=== PATIENT | female | born 1950 | race African-American/Black ===

== ENCOUNTER 2018-11-20 10:21 | Observation (INO) | payer MEDICAID, MEDICARE, OTHER ==
[~2018-11-20] VITALS: Ht 152.4 cm; Wt 99.8 kg
[~2018-11-20 10:21] MED LIST: ALBU0.8322 IH; ALBU8.5H2 IH; ALPR.5T PO; AMIT25TA9 PO; ASP325TEC; ASP81TEC PO; ATEN50TA PO; ATENOLOL; ATN50T; BECL8.7A5 IH; CITA10TA70 PO; CITA20TA4 PO; CODE120S3 PO; CPR500T PO; CTLP20T; DEXL60CA5 PO; DIAZ-345 PO; DIAZ5TAB3 PO; DOXY100C2 PO; DXCC100C PO; EST45C VG; FLC100T1 PO; FLUT1DIS26 IH; FNT25TD TD; FNT50TD TD; FURO40TA4 PO; GABA-486 PO; GLYB5TAB6 PO; HCT25T PO; HYDR-2997 PO; HYDR-34 PO; HYDR-707 PO; HYZAAR; INSASP10V SC; INSU100I16 SQ; INSU100V6 SQ; IPRA3AMP11 INH; IPRA3AMP19 IH; IRBE1TAB; IRBE1TAB18 PO; LEVO500T69 PO; LISI1TAB10 PO; LOSA50TA6 PO; LSRT50T PO; MECL-124 PO; METF-380 PO; METO100T2 PO; METO25TA PO; MTF500T PO; NAPR220T76 PO; NF-ESOM40C PO; OMEP-10 PO; OMEP20CA12 PO; OMEP20TA2 PO; ONDAN4ODT PO; ONDN4T PO; OXYC-465 PO; OXYC1TAB28 PO; OXYC1TAB95 PO; POTA10CA43 PO; POTA10TA36 PO; PRCD5U PO; PRD10T PO; PRD1T PO; PRD20T PO; QUIN1TAB3 PO; SCOP1PAT TD; SCR1T1 PO; SENN1TAB76 PO; SIMV20TA3 PO; SMV20T PO; TIOT18CA; TIOT18CA IH; TOPAMAX; TRAZ150T42 PO; ZLP10T PO; ZLP5T PO; breo IH; diabetic med PO
[2018-11-20] MEDS ORDERED: NS IV 1000 ML 1,000 ML IV SCH (11:08)
[2018-11-20] MEDS ORDERED: KETOROLAC 30 MG/ML VIAL IVP ONE (11:15)
[2018-11-20] MEDS ORDERED: ONDANSETRON 4 MG/2 ML (SDV) Z0FRAN IVP ONE ×2 (11:15→13:45)
[2018-11-20 11:16] LABS: BILIRUBIN,URINE NEGATIVE (NEGATIVE); CLARITY,URINE CLEAR; COLOR,URINE YELLOW; GLUCOSE, URINE (UA) 3+ (NEGATIVE); KETONES,URINE NEGATIVE (NEGATIVE); LEUKOCYTE ESTERASE ,URINE 3+ (NEGATIVE); NITRITE,URINE NEGATIVE (NEGATIVE); PH,URINE 6 (5-9); PROTEIN,URINE 1+ (NEGATIVE); UROBILINOGEN,URINE NORMAL (NORMAL)
--- NOTE | 2018-11-20 11:17 | ED Abdominal Pain ---
General Stated Complaint: BACK PAIN,KIDNEY STONE SYMPTOMS Source of Information: Patient Exam Limitations: No Limitations History of Present Illness Date Seen by Provider: Nov 20, 2018 Time Seen by Provider: 10:58 Initial Comments Patient presents to ER by private conveyance with chief complaint of painful urination without hematuria and left flank pain radiating around her back and down into her a small of her back. In the last 2 days it started to radiate around her right side as well. She has never had kidney stones before but she suspects this might be what happening. She's had no fevers or chills. She says her daughter has a lot of kidney stones. The pain is intermittent waxing and waning and right now is a 9 out of 10. She's been using Motrin 2 tablets without relief with her last dose being last night. No history of kidney dysfunction but she does have diabetes. She has COPD. She denies any anterior abdominal pain. Allergies and Home Medications Allergies Coded Allergies: Sulfa (Sulfonamide Antibiotics) (Verified Allergy, Unknown, 11/26/06) lisinopril (Verified Allergy, Unknown, 07/26/14) metformin (Verified Allergy, Unknown, 07/26/14) Home Medications Albuterol 8.5 Gm Hfa.aer.ad, 2 PUFF IH Q4H PRN for SHORTNESS OF BREATH, ( Reported) NEEDED FOR SHORTNESS OF BREATH Albuterol Sulfate/Ipratropium 3 Ml Solution, 3 ML IH Q4H PRN for SHORTNESS OF BREATH, (Reported) NEEDED FOR SHORTNESS OF BREATH Amitriptyline Hcl 25 Mg Tablet, 25 MG PO HS, (Reported) Aspirin 81 Mg Tabec, 81 MG PO DAILY, (Reported) Citalopram Hydrobromide 20 Mg Tab, 10 MG PO BID, (Reported) TAKES 1/2 (20MG) TABLET Estrogens Conjugated 45 Gm Cr, 1.5 GM VG 3 TIMES WEEKLY PRN, (Reported) NEEDED FOR DRYNESS Fentanyl 1 Ea Patch, 25 MCG TD Q72H, (Reported) Gabapentin 100 Mg Capsule, 100 MG PO TID, (Reported) Insulin Glargine,Hum.rec.anlog 100 Unit/1 Ml Vial, 15 UNITS SQ HS, (Reported) Metoprolol Tartrate 100 Mg Tablet, 100 MG PO BID, (Reported) WITH MEALS Oxycodone Hcl/Acetaminophen 1 Each Tablet, 1 TAB PO BID PRN for PAIN NEEDED FOR PAIN 10-325MG TABLET Prescribed by: SHERON GO on 11/28/13 1201 [breo] , 1 PUFF IH DAILY, (Reported) [diabetic med] , 1 TAB PO DAILY, (Reported) Patient Home Medication List Home Medication List Reviewed: Yes Review of Systems Review of Systems Constitutional: No chills, No fever EENTM: No Eye Pain, No Ear Pain Respiratory: Denies Cough, Denies Shortness of Air Cardiovascular: Denies Chest Pain Gastrointestinal: See HPI; Denies Abdomen Distended, Denies Constipated, Denies Diarrhea; Nausea; Denies Vomiting Genitourinary: Burning; Denies Discharge, Denies Drainage Musculoskeletal: No back pain, No joint pain Skin: No pruritus, No rash Psychiatric/Neurological: Denies Headache, Denies Numbness Past Qpflmnj-Yvrbyd-Sdedio Hx Patient Social History Alcohol Use: Denies Use Recreational Drug Use: No Smoking Status: Never a Smoker Recent Foreign Travel: No Contact w/Someone Who Travel: No Immunizations Up To Date Tetanus Booster (TDap): Less than 5yrs PED Vaccines UTD: No Date of Pneumonia Vaccine: Aug 25, 2013 Date of Influenza Vaccine: May 07, 2013 Past Medical History Eye Surgery, Gallbladder, Hysterectomy, Orthopedic Pneumonia, COPD Hypertension Neuropathy Reproductive Disorders: Yes (hysterectomy) [employer]LY[employer] History: Hysterectomy Sexually Transmitted Disease: No HIV/AIDS: No Renal Failure Ulcer Arthritis, Back Injury, Chronic Back Pain Diabetes, Non-Insulin dep Cataract Loss of Vision: Left Eating Disorder, Sleep Difficulties, Anxiety, Depression Adverse Reaction/Blood Tranf: No Family Medical History Alcoholism 09 SISTER 09 SISTER Cancer 03 MOTHER Cataract 09 SISTER Family history: Cardiovascular disease 09 BROTHER (HEART ATTACK) Family history: Diabetes mellitus 09 SISTER Family history: Glaucoma 09 SISTER 09 SISTER Family history: Hypertension 09 BROTHER 09 BROTHER 09 BROTHER Family history: Osteoporosis 09 SISTER 09 SISTER Kidney disease 09 SISTER Seizure disorder Stroke 09 BROTHER No Family History of: Abdominal aortic aneurysm Cancer of colon Chest pain Congenital heart disease Congestive heart failure Cystic fibrosis Dementia Dysphagia Family history: Allergy Family history: Alzheimer's disease Family history: Arthritis Family history: Breast disease Family history: Coronary thrombosis Family history: Gastrointestinal disease Headache Hearing loss Heart disease Hereditary disease History of - anemia History of - disorder History of - respiratory disease History of drug abuse Human immunodeficiency virus (HIV) seropositivity Hypercholesterolemia Infertile Malignant neoplasm of lung Myocardial infarction Parkinson's disease Prostate cancer Psychotic disorder Tuberculosis Visual impairment Heart Disease, Cancer, CVA, Diabetes Physical Exam Vital Signs Vital Signs - First Documented 11/20/18 10:52 Temp 96.2 Pulse 79 Resp 15 B/P (MAP) 146/96 (113) Pulse Ox 92 O2 Delivery Room Air Capillary Refill : Height/Weight/BMI Height: 5'2.00" Weight: 211lbs. 8.0oz. 95.406534lk; BMI Method:Stated General Appearance: WD/WN, mild distress HEENT: PERRL/EOMI, normal ENT inspection, pharynx normal Neck: full range of motion, supple, normal inspection Respiratory: lungs clear, normal breath sounds, no respiratory distress, no accessory muscle use Cardiovascular: normal peripheral pulses, regular rate, rhythm, no edema Peripheral Pulses: 2+ Radial Pulses (R), 2+ Radial Pulses (L) Gastrointestinal: normal bowel sounds, non tender, soft Extremities: normal range of motion, normal capillary refill Back: normal inspection, CVA tenderness (R), CVA tenderness (L) Neurologic/Psychiatric: alert, normal mood/affect, oriented x 3 Skin: normal color, warm/dry Progress/Results/Core Measures Results/Orders Lab Results Laboratory Tests Test 11/20/18 10:54 11/20/18 11:36 Range/Units Urine Color YELLOW Urine Clarity CLEAR Urine pH 6 5-9 Urine Specific Minter 1.020 1.016-1.022 Urine Protein 1+ H NEGATIVE Urine Glucose (UA) 3+ H NEGATIVE Urine Ketones NEGATIVE NEGATIVE Urine Nitrite NEGATIVE NEGATIVE Urine Bilirubin NEGATIVE NEGATIVE Urine Urobilinogen NORMAL NORMAL MG/DL Urine Leukocyte Esterase 3+ H NEGATIVE Urine RBC (Auto) 1+ H NEGATIVE Urine RBC NONE /HPF Urine WBC 10-25 H /HPF Urine Squamous Epithelial Cells 10-25 H /HPF Urine Renal Epithelial Cells 2-5 /HPF Urine Crystals NONE /LPF Urine Bacteria MODERATE H /HPF Urine Casts NONE /LPF Urine Mucus SMALL H /LPF Urine Culture Indicated YES White Blood Count 8.9 4.3-11.0 10^3/uL Red Blood Count 4.78 4.35-5.85 10^6/uL Hemoglobin 15.8 11.5-16.0 G/DL Hematocrit 47 35-52 % Mean Corpuscular Volume 98 80-99 FL Mean Corpuscular Hemoglobin 33 25-34 PG Mean Corpuscular Hemoglobin Concent 34 32-36 G/DL Red Cell Distribution Width 13.9 10.0-14.5 % Platelet Count 195 130-400 10^3/uL Mean Platelet Volume 9.8 7.4-10.4 FL Neutrophils (%) (Auto) 62 42-75 % Lymphocytes (%) (Auto) 27 12-44 % Monocytes (%) (Auto) 8 0-12 % Eosinophils (%) (Auto) 3 0-10 % Basophils (%) (Auto) 1 0-10 % Neutrophils # (Auto) 5.5 1.8-7.8 X 10^3 Lymphocytes # (Auto) 2.4 1.0-4.0 X 10^3 Monocytes # (Auto) 0.7 0.0-1.0 X 10^3 Eosinophils # (Auto) 0.3 0.0-0.3 10^3/uL Basophils # (Auto) 0.1 0.0-0.1 10^3/uL Sodium Level 136 135-145 MMOL/L Potassium Level 5.0 3.6-5.0 MMOL/L Chloride Level 98 98-107 MMOL/L Carbon Dioxide Level 21 21-32 MMOL/L Anion Gap 17 H 5-14 MMOL/L Blood Urea Nitrogen 18 7-18 MG/DL Creatinine 1.24 0.60-1.30 MG/DL Estimat Glomerular Filtration Rate 52 BUN/Creatinine Ratio 15 Glucose Level 312 H 70-105 MG/DL Calcium Level 10.0 8.5-10.1 MG/DL Corrected Calcium 9.8 8.5-10.1 MG/DL Magnesium Level 2.0 1.8-2.4 MG/DL Total Bilirubin 0.4 0.1-1.0 MG/DL Aspartate Amino Transf (AST/SGOT) 22 5-34 U/L Alanine Aminotransferase (ALT/SGPT) 26 0-55 U/L Alkaline Phosphatase 80 40-136 U/L Total Protein 8.1 6.4-8.2 GM/DL Albumin 4.3 3.2-4.5 GM/DL My Orders Orders - KAITLYN HELMS Ua Culture If Indicated (11/20/18 10:29) Cbc With Automated Diff (11/20/18 11:08) Comprehensive Metabolic Panel (11/20/18 11:08) Magnesium (11/20/18 11:08) Ct Abd/Pelvis Wo(Kidney Stone) (11/20/18 11:08) Saline Lock/Iv-Start (11/20/18 11:08) Ns Iv 1000 Ml (Sodium Chloride 0.9%) (11/20/18 11:08) Ondansetron Injection (Zofran Injectio (11/20/18 11:15) Ketorolac Injection (Toradol Injection) (11/20/18 11:15) Urine Culture (11/20/18 10:54) Ceftriaxone For Iv Use (Rocephin For I (11/20/18 12:15) Fentanyl Injection (Sublimaze Injection (11/20/18 12:15) Ondansetron Injection (Zofran Injectio (11/20/18 13:45) Medications Given in ED Current Medications Medications Dose Ordered Sig/Jasmina Route Start Time Stop Time Status Last Admin Dose Admin Ceftriaxone Sodium 1000 mg/ Sterile Water 10 ml @ 200 mls/hr ONCE ONCE IV 11/20/18 12:15 11/20/18 12:17 DC 11/20/18 12:31 200 MLS/HR Fentanyl Citrate 50 mcg ONCE ONCE IVP 11/20/18 12:15 11/20/18 12:16 DC 11/20/18 12:31 50 MCG Ketorolac Tromethamine 30 mg ONCE ONCE IVP 11/20/18 11:15 11/20/18 11:16 DC 11/20/18 11:31 30 MG Ondansetron HCl 4 mg ONCE ONCE IVP 11/20/18 11:15 11/20/18 11:16 DC 11/20/18 11:31 4 MG Vital Signs/I&O 11/20/18 10:52 Temp 96.2 Pulse 79 Resp 15 B/P (MAP) 146/96 (113) Pulse Ox 92 O2 Delivery Room Air Progress Progress Note #1: Time: 11:14 Progress Note Pyelonephritis versus much less likely kidney stone. We will going obtain a CT without contrast if the rest of her lab works unrevealing. Plan to give her a liter fluids; check some urine and blood. Progress Note #2: Time: 12:50 Progress Note The patient has a bladder infection but no evidence of obstructive renal calculi. She does very possibly have the beginnings of pyelonephritis. Her labs and vital signs are aseptic. We have offered her to go home on antibiotics, antinausea and anti-pain meds versus an observation stay. Given her age, diabetes and how much pain medicine as take to control her symptoms he would be reasonable to hold onto her for her pain and nausea control. Patient is followed by a Dr. Yates at [facility]. She has not seen Dr. Lyle in over 5 years. Diagnostic Imaging Diagonstic Imaging: CT (noncontrast) Plain Films/CT/US/NM/MRI: abdomen, pelvis Comments NAME: ISIAH BENÍTEZ REC#: [id number] PT STATUS: REG ER : 1950 PHYSICIAN: KAITLYN HELMS MD ADMIT DATE: 11/20/18/ER Draft Date of Exam:11/20/18 CT ABD/PELVIS WO(KIDNEY STONE) PROCEDURE: CT urinary tract, rule out kidney stone. TECHNIQUE: Multiple contiguous axial images were obtained through the abdomen and pelvis without the use of intravenous contrast. Auto Exposure Controls were utilized during the CT exam to meet ALARA standards for radiation dose reduction. INDICATION: Bilateral flank pain. CORRELATION STUDY: 03/23/2012. FINDINGS: LOWER THORAX: Clear. LIVER: Enlarged with changes reflecting hepatic steatosis. GALLBLADDER: Cholecystectomy. No bile duct dilatation. SPLEEN: Calcified granulomas. PANCREAS: Unremarkable. ADRENAL GLANDS: Unremarkable. KIDNEYS: 12 mm rounded low-density focus inferior pole of the right kidney. It does appear to be somewhat changed from prior study. Right kidney collecting system is otherwise unremarkable. Irregular-shaped calcification inferior pole of the left kidney maximum dimension 17 x 15 mm is present. The left kidney and collecting system otherwise unremarkable. No hydronephrosis. ABDOMINAL AORTA: Trace abdominal wall calcification, nonaneurysmal. GASTROINTESTINAL TRACT: Stomach decompressed. Small bowel unremarkable. Mild severity fecal retention within the colon. Normal appendix in the right lower quadrant. URINARY BLADDER: Relatively decompressed but appearing unremarkable. REPRODUCTIVE: Post hysterectomy changes. There is a rounded lucency in the low midline pelvis with rounded densities dependently. This may be reflective of a support device. OSSEOUS STRUCTURES: No acute abnormality. OTHER: Likely surgical changes of the abdominal wall. IMPRESSION: 1. Nonobstructing stone inferior pole of left kidney. No evidence for obstructive uropathy. Negative for acute abnormality about the abdomen and/or pelvis. 2. Post cholecystectomy and hysterectomy changes. Dictated on workstation # [id number] Dict: 11/20/18 1210 Trans: 11/20/18 1241 [id number] Interpreted by: SAAD TOLBERT DO Electronically signed by: Reviewed: Reviewed by Me Departure Communication (Admissions) Time/Spoke to Admitting Phy: 13:25 Discussed case lab imaging findings with Dr. Gregory and she agrees to observe the patient for nausea and Pain control. Impression Primary Impression: UTI (urinary tract infection) Qualified Codes: N30.00 - Acute cystitis without hematuria Disposition: ADMITTED INPATIENT Condition: Stable Admissions Decision to Admit Reason: Admit from ER (General) Decision to Admit/Date: Nov 20, 2018 Time/Decision to Admit Time: 13:07 Departure-Patient Inst. Referrals: LAURIE LYLE MD (PCP/Family) Primary Care Physician KAITLYN HELMS Nov 20, 2018 11:17
--- OUTSIDE RECORDS SUMMARY | 2018-11-20 11:18 | XMS REPORT | Clinical Summary ---
Author Author [facility] Organization [facility] Address Unknown Phone Unavailable Care Team Providers Care Schedule Announcer Name Role Phone Angela Galloway MD Unavailable Yassine Cano MD Unavailable Chantel Don DO Unavailable Jeremy Franco MD Unavailable Unavailable Angela Galloway MD PCP Joanna Causey RD Unavailable Unavailable Leeanna Cheema RN Unavailable Unavailable Patrick Astorga MD Unavailable April Weaver DO Unavailable Genevieve Chavira MD Unavailable Gege Joseph MD Unavailable Jermaine Penaloza MD Unavailable Bijan Ambrocio [facility] Unavailable Smiley Barahona RN Unavailable Unavailable Source Comments Some departments are not documenting in the electronic medical record. If you do not see the information that you expected, contact Release of Information in the Health Information Management department at [phone] for further assistance in locating additional records.[facility] Allergies Comments Active Allergy Reactions Severity Noted Date Caused stress incontinence d/t intense coughing. Amlodipine COUGH 07/21/2012 Lisinopril ANGIOEDEMA 05/09/2012 Metformin EDEMA 05/19/2012 Medications End Date Status Medication Sig Dispensed Refills Start Date Active aspirin EC 81 mg tablet Take 81 mg by 0 mouth daily. Active epinephrine(+) (EPIPEN) 1 Inject 0.3 mL 2 Each 12 mg/mL injection pen to area(s) as 2 directed as Needed. For airway swelling. Active naproxen sodium(+) Take 1 Tab by 0 (ALEVE) 220 mg tablet mouth as Needed. Active estrogens, conjugated(+) Apply as 1 Container 0 (PREMARIN) 0.625 mg/g directed 2 vaginal creamIndications: Menopause ovarian failure Active potassium chloride(+) Take 2 Caps 90 Cap 3 (MICRO-K) 10 mEq capsule by mouth 3 daily. Active hydrochlorothiazide Take 1 Tab by 90 Cap 3 (HYDRODIURIL) 25 mg mouth daily. [address](+) TAKE 1 90 Cap 0 (PRILOSEC) 20 mg capsule CAPSULE BY 3 MOUTH DAILY Active amitriptyline (ELAVIL) 25 TAKE 1 TABLET 90 Tab 0 mg tablet BY MOUTH 3 EVERY NIGHT AT BEDTIME Active insulin glargine (LANTUS) Inject 15 2 Vial 2 100 unit/mL injection Units into 3 area(s) as directed at bedtime daily. Active salmeterol (SEREVENT) 50 Inhale 1 Puff 1 Inhaler 12 mcg/dose inhalation disk by mouth 3 twice daily. Active albuterol 0.083% Inhale 3 mL 75 mL 5 (PROVENTIL; VENTOLIN) 2.5 solution as 3 mg /3 mL (0.083 %) directed nebulizer solution every 4 hours as needed for Wheezing. Active beclomethasone(+) (QVAR) Inhale 2 3 Inhaler 3 80 mcg/actuation inhaler Puffs by 3 mouth twice daily. Active metoprolol (LOPRESSOR) Take 1 Tab by 180 Tab 3 100 mg tablet mouth twice 3 daily. Active Insulin Wilber 100 Each 11 (Disposable) (ULTICARE) 3 29 x 1/2 " Ndle Active famotidine (PEPCID) 20 mg Take 1 Tab by 60 Tab 0 tablet mouth twice 3 daily. Active citalopram (CELEXA) 20 mg Take 2 Tabs 180 Tab 1 tablet by mouth 3 daily. Active gabapentin (NEURONTIN) Take 1 Cap by 270 Cap 3 100 mg capsule mouth three 3 times daily. Active HYDROcodone/acetaminophen Take 1 Tab by 90 Tab 0 (NORCO; VICODIN) 5-325 mg mouth every 8 3 tablet hours as needed for Pain. Active Problems Problem Noted Date Numbness and tingling of both legs 04/08/2013 Last Assessment & Plan: Start Neurontin 150 mg tid. Pseudophakia 02/20/2013 Last Assessment & Plan: OK for new glasses Rx as above. 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 Retinal detachment precautions discussed. Patient is to contact us immediately if increased floaters, flashing lights, or dark curtains/veils are noted. Monocular precautions discussed. Depression 01/04/2013 Last Assessment & Plan: Improved with increase in celexa. Continue to monitor. Diabetes mellitus 01/04/2013 Overview: Follow up with HbA1c and microalbuminuria. L ast Assessment & Plan: No retinopathy, continue strict blood glucose control. Ankle fracture, left 01/03/2013 Last Assessment & Plan: Plain film today - referral to orthopedic surgery Lung mass 01/03/2013 Overview: Resolved on subsequent CT LIMA (dyspnea on exertion) 01/03/2013 Last Assessment & Plan: Etiology remains unclear. Difficulty keeping advair on hand due to insurance reasons. Has required samples from pulm clinic. Will write for fluticasone and salmeterol individually. Continue to follow with pulm. May consider repeat cardiac work up of respiratory issues persist. Chest pain sounds more pleuritic/anxiety related as it is relieved with advair. HTN (hypertension) 01/03/2013 Overview: discontinue HCTZ, Start Norvasc. Last Assessment & Plan: Continues to be hypertensive despite HCTZ and metoprolol. Intolerant of LUCIANO/ARB due to angioedema as well as CCB due to cough. Will increase metoprolol to 75mg BID Angioedema 05/19/2012 Overview: Patient with recurrent facial angioedema, with possible involvement of airway, requiring hospitalization without urticaria. Based on history, this sounds more bradykinin mediated and not mast cell mediated and could very well have been caused by one or more medications. - would strongly encourage discontinuing Cozaar and not restart an ACEi or an ARB as these are associated with angioedema, but recommend a calcium channel rian instead to control HTN. We will refer to internal medicine here at to further evaluate this and decide on her medications. - will send baseline labs including C4, C3, ESR, CRP, CBC, CMP, C1 antigen and function - ask that patient keep a journal of events should this happen again. It should include what she ingested, foods, medications, etc., how long after she ingested that it started, how long it lasted and if possible pictures. - will provide an EpiPen for severe reactions involving the airway Hemoptysis 05/19/2012 Overview: History of bloody sputum for the last 2 weeks or so. By report, has had a CT scan of chest that showed pneumonia only and was treated. - will obtain a chest xray today to follow-up on pneumonia, with concern for malignancy because of history of smoking. - recommend seeing a Assistant District Attorney for further evaluation as she has been evaluated by her primary care, will refer today to pulm. Immunizations Name Dates Previously Given Next Due FLU VACCINE >3YO 06/08/2012 Pneumococcal Vaccine 11/10/2012 (23-[place] Adult) Family History Medical History Relation Name Comments Cancer Brother Cancer Father Diabetes Father Heart Attack Father Stroke Father Asthma Mother Cancer Mother Amblyopia Neg Hx Autoimmune Disease Neg Hx Blindness Neg Hx Blood Clots Neg Hx COPD Neg Hx Cataract Neg Hx Coronary Artery Disease Neg Hx Cystic Fibrosis Neg Hx DVT Neg Hx Glaucoma Neg Hx Hypertension Neg Hx Macular Degen Neg Hx Neurologic Disorder Neg Hx Pulmonary Embolism Neg Hx Pulmonary Fibrosis Neg Hx Pulmonary HTN Neg Hx Retinal Detachment Neg Hx Strabismus Neg Hx Thyroid Disease Neg Hx Relation Name Status Comments Brother Father Mother Social History Date Tobacco Use Types Packs/Day Years Used Quit: 05/23/2011 Former Smoker Cigarettes 22 Smokeless Tobacco: Never Used Tobacco Cessation: Counseling Given: No Comments: 1 pack lasted 3 days Alcohol Use Drinks/Week oz/Week Comments No 1-2 drinks/year Sex Assigned at Date Recorded Not on file Industry Job Start Date Occupation Not on file Not on file Not on file Travel End Travel History Travel Start No recent travel history available. Last Filed Vital Signs Time Taken Vital Sign Reading 04/06/2013 10:29 AM CDT Blood Pressure 134/79 04/06/2013 10:29 AM CDT Pulse 70 04/06/2013 10:20 AM CDT Temperature 36.9 C (98.4 F) 04/06/2013 10:20 AM CDT Respiratory Rate 20 03/28/2013 3:35 PM CDT Oxygen Saturation 99% - Inhaled Oxygen - Concentration 04/06/2013 10:20 AM CDT Weight 101.1 kg (222 lb 12.8 oz) 04/06/2013 10:20 AM CDT Height 154.9 cm (5' 1") 04/06/2013 10:20 AM CDT Body Mass Index 42.1 Plan of Treatment Health Maintenance Due Date Last Done Comments HEPATITIS C SCREENING 1950 PHYSICAL (COMPREHENSIVE) 1959 EXAM DTAP/TDAP VACCINES (1 - 1970 Tdap) BREAST CANCER SCREENING 1992 COLORECTAL CANCER 2002 SCREENING SHINGLES RECOMBINANT 2002 VACCINE (1 of 2) OSTEOPOROSIS 2017 SCREENING/MONITORING PNEUMONIA (PCV13/PPSV23) 2017 11/10/2012 VACCINES (1 of 2 - PCV13) INFLUENZA VACCINE 03/23/2018 06/08/2012 Results Not on filefrom Last 3 Months Advance Directives Patient has advance care planning documents on file. For more information, please contact: [facility] [address] [place] [address]
--- OUTSIDE RECORDS SUMMARY | 2018-11-20 11:19 | XMS REPORT | Encounter Summary ---
Author Author [facility] Organization [facility] Address Unknown Phone Unavailable Care Team Providers Care Lecturer Of Portuguese Name Role Phone Ebony Sharp MD PCP Reason for Visit * Reason Comments Other Encounter Details Date Type Department Care Team Description 11/15/2018 Refill [facility] Primary Care Ebony Sharp MD Other - [facility] [place] [address] [facility] [address] [facility] [address] [place] [address] [place] [address] [phone] Social History Tobacco Use Types Packs/Day Years Used Date Former Smoker Cigarettes 0.33 20 Quit: 09/14/2009 Smokeless Tobacco: Never Used Comments: quit 7 years ago Alcohol Use Drinks/Week oz/Week Comments Yes seldom, two to three times a year Sex Assigned at Date Recorded Not on file as of this encounter Plan of Treatment Date Type Specialty Care Team Description 11/29/2018 Education General Surgery as of this encounter Visit Diagnoses Not on filein this encounter
--- OUTSIDE RECORDS SUMMARY | 2018-11-20 11:19 | XMS REPORT | Clinical Summary ---
Author Author [facility] Organization [facility] Address Unknown Phone Unavailable Care Team Providers Care Template Clerk Name Role Phone Ebony Sharp MD PCP Allergies Active Allergy Reactions Severity Noted Date Comments Latex, Natural Rubber 05/23/2018 Lisinopril Anaphylaxis High 01/06/2016 Metformin Anaphylaxis High 12/31/2015 Sulfa (Sulfonamide Hives 09/05/2015 Antibiotics) Current Medications Prescription Sig. Disp. Refills Start End Date Status Date OXYGEN THERAPY 2 L/min as needed. Active ipratropium-albuterol Inhale 3 mL 4 (four) 360 mL 11 02/14/20 Active (DUO-NEB) 0.5-3 mg/3 mL times a day. 16 nebulizer docusate sodium (COLACE) Take 1 capsule (100 mg 60 capsule 0 04/12/20 Active 100 MG capsule total) by mouth 2 (two) 17 times a day as needed for constipation (first line therapy with polyethlene glycol). albuterol (VENTOLIN HFA) INHALE 1 PUFF EVERY 4 18 g 2 08/26/19 Active 90 mcg/actuation HFA HOURS NEEDED FOR 18 inhaler WHEEZING simvastatin (ZOCOR) 20 MG Take 1 tablet (20 mg 90 tablet 1 08/26/19 Active tablet total) by mouth nightly. 18 insulin syringe (BD Inject under the skin 100 each 0 08/26/19 Active ULTRA-FINE) 0.3 mL 31 daily. use as directed 18 gauge x 5/16 amLODIPine (NORVASC) 2.5 Take 2 tablets (5 mg 180 tablet 1 01/07/20 Active MG tablet total) by mouth daily. 18 Take one daily. insulin syringe 0.3 mL 31 USE DIRECTED 100 each 1 06/21/20 Active gauge x 01/05 18 cyclobenzaprine TAKE 1 TABLET BY MOUTH AT 15 tablet 0 07/19/20 Active (FLEXERIL) 10 MG tablet BEDTIME 18 simvastatin (ZOCOR) 20 MG TAKE 1 TABLET(20 MG) BY 30 tablet 0 Active tablet MOUTH EVERY NIGHT 18 cyclobenzaprine TAKE 1 TABLET(10 MG) BY 14 tablet 0 09/02/19 Active (FLEXERIL) 10 MG tablet MOUTH DAILY 19 spironolactone Take 1 tablet (100 mg 180 tablet 1 09/12/19 03/11/20 Active (ALDACTONE) 100 MG total) by mouth 2 (two) 19 19 tabletIndications: Hair times a day. (Please take loss, Acne vulgaris 1 daily for the first week) oxyCODONE-acetaminophen Take 1-2 tablets by mouth 24 tablet 0 Active (PERCOCET) 5-325 mg per every 8 (eight) hours as 19 tablet needed for pain. Max Daily Dose: 6 tablets LANTUS U-100 INSULIN 100 ADMINISTER 15 UNITS UNDER 10 mL 0 10/19/19 Active unit/mL injection THE SKIN EVERY NIGHT 19 gabapentin (NEURONTIN) TAKE 2 CAPSULES(600 MG) 540 capsule 1 10/19/19 Active 300 MG capsule BY MOUTH THREE TIMES 19 DAILY citalopram (CELEXA) 20 mg TAKE 1 TABLET(20 MG) BY 90 tablet 1 Active tablet MOUTH DAILY 19 BREO ELLIPTA 200-25 INHALE 1 PUFF BY MOUTH 60 each 2 10/19/19 Active mcg/dose INHALER DAILY 19 amitriptyline (ELAVIL) 25 TAKE 1 TABLET(25 MG) BY 90 tablet 1 Active MG tablet MOUTH EVERY NIGHT 19 metoprolol tartrate TAKE 1 TABLET(100 MG) BY 180 tablet 1 10/20/19 Active (LOPRESSOR) 100 MG tablet MOUTH TWICE DAILY 19 LANTUS U-100 INSULIN 100 ADMINISTER 15 UNITS UNDER 10 mL 0 10/22/19 Active unit/mL injection THE SKIN EVERY NIGHT 19 simvastatin (ZOCOR) 20 MG TAKE 1 TABLET BY MOUTH 90 tablet 1 10/26/19 Active tablet EVERY NIGHT AT BEDTIME 19 simvastatin (ZOCOR) 20 MG TAKE 1 TABLET BY MOUTH 14 tablet 0 09/02/19 10/24/19 Discontin tablet EVERY NIGHT AT BEDTIME 19 19 ued Active Problems Patient Care Coordination Note Ms. Isiah Benítez is a 65 y.o. female with hx of HTN, IDDM, COPD presents with shortness of breath, failed OP therapy. Likely COPD exacerbation. Started on Levaquin, steroids, breathing treatments and supplemental oxygen, with improvement. Problem Noted Date Influenza A 08/29/2017 Last Assessment & Plan: Continue tamfilu Closed left ankle fracture 04/09/2017 Last Assessment & Plan: Postoperative Day # 3 s/p Left ankle revision arthrodesis -Management by primary service Renal calculus 02/05/2017 Last Assessment & Plan: - 9x7 L renal calculus - pt aware - no hydronephrosis COPD exacerbation (HCC) 02/04/2017 Last Assessment & Plan: Change steroids to po duonebs tamiflu Supportive care. Acute bleeding 08/08/2016 Last Assessment & Plan: Bleeding after left ankle surgery yesterday Splint was reapplied in ED yesterday Stable, dressings D/I Hgb 11.6, VSS Ortho consulted, per note yesterday anticipated discharge today Draining postoperative wound 08/08/2016 Bleeding 08/07/2016 Post-op pain 08/07/2016 Last Assessment & Plan: Patient with ankle fusion in July and follows closely with ortho -on MS contin 15 BID and oxycodone 10mg PRN for chronic pain Morbid obesity due to excess calories ([facility]) 07/10/2016 Last Assessment & Plan: Counseled regarding weight loss SASHA on CPAP 06/30/2016 Last Assessment & Plan: Stable, continue CPAP at HS Type 2 diabetes mellitus with hyperglycemia, with long-term current use of 06/29/2016 insulin ([facility]) Last Assessment & Plan: Mildly hyperglycemic, likely due to stress/pain- -Continue Lantus at 18u HS and SSI prn while hospitalized -Recommended f/u with PCP in 1-2 weeks for further diabetes management once more stable post op Benign essential HTN 06/29/2016 Last Assessment & Plan: Normotensive Continue home meds SASHA (obstructive sleep apnea) 02/21/2016 Iron deficiency 02/21/2016 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 No signs of exacerbation -continue breo and nebs Hyperlipidemia 09/24/2015 Chronic pain 09/24/2015 Last Assessment & Plan: Stable, Continue gabapentin and elavil Elevated MCV 09/24/2015 MATA (generalized anxiety disorder) 09/24/2015 Hair loss 09/24/2015 Diabetes mellitus, type II (HCC) Last Assessment & Plan: Elevated Increase lantus and ssi. Resolved Problems Problem Noted Date Resolved Date Influenza 08/29/2017 08/31/2017 Acute on chronic respiratory failure with hypoxia (HCC) 06/30/20162015 Last Assessment & Plan: sats 85% on room air on admit Overnight on 06/30 , sats continued to be 88% on room air Reports being on home oxygen PRN at 2L , usually after exertion or nightly with c-pap --continue abx --steroids, switched to oral this am --rate protocol --oxygen, titrate to sats > 92% Tachycardia 06/30/2016 07/02/2016 Last Assessment & Plan: Likely multifactorial, receiving breathing treatments, metoprolol held due to copd exacerbation; Improved with addition of metoprolol; HR now in 90's EKG shows ST --continue metoprolol COPD exacerbation (HCC) 06/29/2016 07/02/2016 Last Assessment & Plan: Pt mildly hypoxemic on admit; remained 88% on room air overnight, still requiring supplemental oxygen CXR with Left basal opacity with partial obscuration of the left hemidiaphragm could reflect atelectasis. Infection not excluded. CTA negative for PE 2/4 SIRS criteria --HR and RR; afebrile; wbc 6--unlikely sepsis, likely due to copd exacerbation procal < 0.05 --continue levaquin, steroids and breathing treatments --RATE protocol --titrate oxygen to sats > 92% --check procal Acute chest pain 02/14/2016 08/08/2016 Type 2 diabetes mellitus without complication (HCC) 09/24/2015 02/04/2017 Last Assessment & Plan: A1c 8.6% this month Continue Lantus at HS AC/HS accu checks CC, SH diet Hypertension 09/24/2015 08/08/2016 Encounters Date Type Specialty Care Team Description 11/15/2018 Refill Primary Care Ebony Sharp MD Other 11/01/2018 Education General Surgery Francoise Coelho RD 10/23/2018 Refill Primary Care Ebony Sharp MD Other 10/21/2018 Refill Primary Care Jennifer Feng RN Medication Refill 10/21/2018 Refill Primary Care Ebony Sharp MD Other 10/20/2018 Refill Primary Care Ebony Sharp MD Other 10/18/2018 Refill Primary Care Ebony Sharp MD Other 09/27/2018 Documentation Primary Care Ebony Sharp MD 09/15/2018 Documentation Primary Care Ebony Sharp MD 09/13/2018 Emergency Emergency Medicine Chava Kelly MD Acute chest pain (Primary Dx) 09/13/2018 Procedure Pass Emergency Medicine 09/12/2018 Lab Lab Ebony Sharp MD Benign essential HTN; Type 2 diabetes mellitus with hyperglycemia, 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); Hyperthyroidism 09/12/2018 Imaging Radiology Ebony Sharp MD Appointment 09/12/2018 Office Visit Primary Care Ebony Sharp MD Chronic obstructive pulmonary disease, unspecified COPD type (HCC) (Primary Dx); Hyperlipidemia, unspecified hyperlipidemia type; Benign essential HTN; MATA (generalized anxiety disorder); Type 2 diabetes mellitus with hyperglycemia, 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); Morbid obesity due to excess calories (HCC); Healthcare maintenance; Hair loss; Acne vulgaris; Hyperthyroidism 09/06/2018 Initial consult General Surgery Medardo Tate MD Morbid obesity due to excess calories (HCC) (Primary Dx); Type 2 diabetes mellitus with hyperglycemia, 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); Hyperlipidemia, unspecified hyperlipidemia type; Benign essential HTN; SASHA on CPAP 09/06/2018 Documentation General Surgery Medardo Tate MD 08/30/2018 Refill Primary Care Ebony Sharp MD Other 08/25/2018 Refill Primary Care Ebony Sharp MD Other from Last 3 Months Immunizations Name Dates Previously Given Next Due Influenza QIV (IM) 07/09/2017, 05/09/2016, 06/18/2014 Influenza Virus Vaccine, 07/06/2013 Split Virus (Incl. Purified Surface Antigen)-retired Code Influenza, Seasonal, 06/08/2012 Injectable Pneumococcal 05/09/2016 Polysaccharide 23-Valent Seasonal Trivalent 07/23/2018 Influenza Vaccine, Adjuvanted, Preservative Free Family History Medical History Relation Name Comments Cancer Father Stroke Father Cancer Mother Stroke Mother Relation Name Status Comments Father Mother Social History Tobacco Use Types Packs/Day Years Used Date Former Smoker Cigarettes 0.33 20 Quit: 09/14/2009 Smokeless Tobacco: Never Used Comments: quit 7 years ago Alcohol Use Drinks/Week oz/Week Comments Yes seldom, two to three times a year Sex Assigned at Date Recorded Not on file Last Filed Vital Signs Vital Sign Reading Time Taken Blood Pressure 138/85 09/13/2018 2:01 PM [employer] Pulse 76 09/13/2018 2:54 PM [employer]ATE [employer] PROGRAM COORDINATOR Temperature 36.7 C (98.1 F) 09/13/2018 9:59 AM [employer]ATE [employer] PROGRAM COORDINATOR Respiratory Rate 16 09/13/2018 2:54 PM [employer]ATE [employer] PROGRAM COORDINATOR Oxygen Saturation 91% 09/13/2018 2:54 PM [employer]ATE [employer] PROGRAM COORDINATOR Inhaled Oxygen - - Concentration Weight 101.5 kg (223 lb 11.2 oz) 11/01/2018 3:57 PM CDT Height 152.4 cm (5') 09/13/2018 9:59 AM [employer]ATE [employer] PROGRAM COORDINATOR Body Mass Index 43.69 11/01/2018 3:57 PM CDT Plan of Treatment Date Type Specialty Care Team Description 11/29/2018 Education General Surgery Health Maintenance Due Date Last Done Comments Diabetes Mellitus 1950 Ophthalmology Exam Spirometry # 1950 Diabetes Mellitus Foot 1962 Exam Mammogram Screening 01/06/2012 01/05/2011 Pneumococcal Immunization 2017 05/09/2016 65+ (1 of 2 - PCV13) Diabetes Mellitus 03/12/2019 09/12/2018, 04/07/2018, 07/09/2017, Hemoglobin A1C Additional history exists Lipid Screening 04/07/2019 04/07/2018, 04/08/2017, 07/23/2016, Additional history exists Medicare Annual Wellness 04/07/2019 04/07/2018, 04/07/2018, 04/08/2017 Zoster Vaccine# (1 of 2) 08/28/2019 Postponed from 2002 (Insurance / Financial) Diabetes Mellitus Urine 09/12/2019 09/12/2018, 04/08/2017, 09/24/2015 Microalbumin Fall Risk Assessment # 09/13/2019 09/13/2018, 04/07/2018, 04/07/2018 Colorectal Screening via 12/24/2019 12/23/2009 Colonoscopy Osteoporosis Screening 09/12/2023 09/12/2018, 03/18/2016, 02/25/2016 Hepatitis C Screen Completed 04/07/2018, 04/07/2018 Influenza Vaccine Completed 07/23/2018, 07/09/2017, 05/09/2016, Additional history exists Td # Excluded Implants Implanted Type Area Log Cooker Device Expiration Model / Identifier Date Serial / Lot Implant Screw Locking 4.5mm X 38mm Non-Tissue Left: [facility] [id number] - [id number] Implant Ankle / Implanted: Qty: 1 on 04/09/2017 by / Adelaida Olivas MD Implant Screw Non-Locking 4.5mm X Non-Tissue Left: [facility] [id number] 38mm [id number] - [id number] Implant Ankle / Implanted: Qty: 1 on 04/09/2017 by / Adelaida Olivas MD Implant Screw Locking 4.5mm X 30mm Non-Tissue Left: [facility] [id number] - [id number] Implant Ankle / Implanted: Qty: 1 on 04/09/2017 by / Adelaida Olivas MD Implant Screw Locking 4.5mm X 28mm Non-Tissue Left: [facility] [id number] - [id number] Implant Ankle / Implanted: Qty: 1 on 04/09/2017 by / Adelaida Olivas MD Implant Screw Locking 5.5mm X 28mm Non-Tissue Left: [facility] [id number] - [id number] Implant Ankle / Implanted: Qty: 1 on 04/09/2017 by / Adelaida Olivas MD Implant Screw Roxane 8.0mm X 45mm Non-Tissue Left: [employer] [id number] / [id number] - [id number] Implant Ankle / Implanted: Qty: 1 on 04/09/2017 by Adelaida Olivas MD Implant Stimulator Bone Growth Mini Non-Tissue Left: [employer] 10-1320M / Osteogen W/Mesh Cathod 10-1320m - Implant Ankle [id number] / [id number] Implanted: Qty: 1 on 04/09/2017 by Adelaida Olivas MD Implant Plate Sml Ortholoc Lft Non-Tissue Left: [facility] [id number] - [id number] Implant Ankle / Implanted: Qty: 1 on 04/09/2017 by / Adelaida Olivas MD Implant Screw Locking 4.5mm X 36mm Non-Tissue Left: [facility] [id number] - Sna Implant Ankle / Implanted: Qty: 1 on 04/09/2017 by JANA / Adelaida Olivas MD Implant Mesh Ventralight St 6" X Non-Tissue N/A: BARD DAVOL 2019 [id number] / 15.2" Synthetic [id number] - Implant Abdomen SURGICAL / [id number] Implanted: Qty: 1 on 05/25/2018 by Medardo Tate MD Implant Allograft Bio Viable Human Tissue Left: [employer] 2018 [id number] Tissue Matrix 10ml [id number] - Sn/A Implant Ankle / Implanted: Qty: 1 on 04/09/2017 by N/A / Adelaida Olivas MD [id number] Implant Bone Human Tissue Graft Kit Tissue Left: [facility] 11/20 [id number] 3.0ml [id number] - Sn/A Implant Ankle 0 / Implanted: Qty: 1 on 04/09/2017 by Brianna/Aydee / Adelaida Olivas MD [id number] Intraocular Lens Bilateral: Eye Hardware Screws Left: Ankle Artificial Joint Bilateral: Knee 8.0 X 45 Pt Cannulated Screw Left: [employer] [id number] / Implanted: Qty: 1 on 04/09/2017 by Leon BATES / Adelaida Olivas MD NA Explanted Type Area Log Cooker Device Expiration Model / Identifier Date Serial / Lot Implant Screw Non-Locking 4.5mm X Non-Tissue Left: [facility] [id number] 30mm [id number] - [id number] Implant Ankle / Explanted: Qty: 1 on 04/09/2017 / Procedures Procedure Name Priority Date/Time Associated Diagnosis Comments CT ANGIO CHEST STAT 09/13/2018 Results for this 1:19 PM [employer]ATE [employer] PROGRAM COORDINATOR procedure are in the results section. TROPONIN STAT 09/13/2018 Results for this 1:16 PM [employer]ATE [employer] PROGRAM COORDINATOR procedure are in the results section. LIPASE STAT 09/13/2018 Results for this 10:45 AM [employer]PORATE FITNESS PROGRAM COORDINATOR procedure are in the results section. TROPONIN STAT 09/13/2018 Results for this 10:45 AM [employer]PORATE FITNESS PROGRAM COORDINATOR procedure are in the results section. COMPREHENSIVE METABOLIC STAT 09/13/2018 Results for this PANEL 10:45 AM [employer]PORATE [employer] PROGRAM COORDINATOR procedure are in the results section. CBC AND DIFF (MANUAL DIFF STAT 09/13/2018 Results for this IF NECESSARY) 10:45 AM [employer]PORATE FITNESS PROGRAM COORDINATOR procedure are in the results section. XR CHEST SINGLE VIEW STAT 09/13/2018 Results for this FRONTAL 10:35 AM CORPORATE FITNESS PROGRAM COORDINATOR procedure are in the results section. ECG STAT 09/13/2018 Results for this 10:09 AM CORPORATE FITNESS PROGRAM COORDINATOR procedure are in the results section. COMPREHENSIVE METABOLIC Routine 09/12/2018 Benign essential HTN Results for this PANEL 3:22 PM [employer]PORATE [employer] PROGRAM COORDINATOR Type 2 diabetes mellitus procedure are in the with hyperglycemia, with results section. long-term current use of insulin (HCC) T4 FREE Routine 09/12/2018 Hyperthyroidism Results for this 3:22 PM CORPORATE FITNESS PROGRAM COORDINATOR procedure are in the results section. THYROID STIMULATING Routine 09/12/2018 Hyperthyroidism Results for this HORMONE 3:22 PM CORPORATE FITNESS PROGRAM COORDINATOR procedure are in the results section. MICROALBUMIN RANDOM Routine 09/12/2018 Type 2 diabetes mellitus Results for this 3:22 PM CORPORATE FITNESS PROGRAM COORDINATOR with hyperglycemia, with procedure are in the long-term current use of results section. insulin (HCC) HEMOGLOBIN A1C Routine 09/12/2018 Type 2 diabetes mellitus Results for this 3:22 PM CORPORATE FITNESS PROGRAM COORDINATOR with hyperglycemia, with procedure are in the long-term current use of results section. insulin (HCC) DEXA BONE DENSITY HIP Routine 09/12/2018 [facility] PELVIS SPINE 3:16 PM CORPORATE FITNESS PROGRAM COORDINATOR from Last 3 Months Results * CT Angio Chest (09/13/2018 1:19 PM) Impressions Performed At No acute findings. No pulmonary embolus. No rib abnormality seen. LEVI Narrative Performed At Patient: ZOE BENÍTEZ Sex#:F # [id number] Jose#:[id number] Location:[facility] [id number]#: [id number] Procedure Requested:[id number] CT ANGIO CHEST Reason for Exam:severe left sided rib pain Exam Ordered: Exam Date/Time: Begin exam date/time: CT ANGIO CHEST READING SITE: [facility] INDICATION: severe left sided rib pain. COMPARISON STUDY: 05/10/2017. TECHNIQUE:Following the uneventful administration of intravenous contrast, thin section axial CT images were obtained through the chest using the pulmonary embolus protocol. Multiplanar and MIP reformatted images were obtained. 3D reformatted volume rendered images of the pulmonary arteries were performed at a separate workstation.All CT scans are performed using dose reduction techniques. FINDINGS: Pulmonary Arteries: No pulmonary thromboembolic disease. No evidence of pulmonary hypertension. Heart and Mediastinum: The visualized portions of the thyroid gland are normal in size and attenuation. No axillary or supraclavicular lymphadenopathy. No mediastinal, hilar or retrocrural lymphadenopathy. Calcified mediastinal lymph nodes. The heart and pericardium are within normal limits. The great vessels of the thorax are normal. Lungs and Airways: Bilateral dependent and basilar subsegmental atelectasis. No pulmonary mass or consolidation. No endoluminal lesion. Pleura: The pleural spaces are normal. Abdomen: Hepatic steatosis. Cholecystectomy. Calcified splenic granulomas. Bones and Soft Tissues: No acute osseous findings. No rib abnormality seen. The soft tissues of the chest wall are within normal limits. Procedure Note Interface, Rad Results In - 09/13/2018 1:41 PM CORPORATE FITNESS PROGRAM COORDINATOR Patient: ISIAH BENÍTEZ Sex#: F # [id number] Jose#: [id number] Location: [place] [address] Procedure Requested: [id number] CT ANGIO CHEST Reason for Exam: severe left sided rib pain Exam Ordered: 09/13/2018 1115 Exam Date/Time: 09/13/2018 1319 Begin exam date/time: 09/13/[address] ANGIO CHEST READING SITE: [facility] INDICATION: severe left sided rib pain. COMPARISON STUDY: 05/10/2017. TECHNIQUE: Following the uneventful administration of intravenous contrast, thin section axial CT images were obtained through the chest using the pulmonary embolus protocol. Multiplanar and MIP reformatted images were obtained. 3D reformatted volume rendered images of the pulmonary arteries were performed at a separate workstation. All CT scans are performed using dose reduction techniques. FINDINGS: Pulmonary Arteries: No pulmonary thromboembolic disease. No evidence of pulmonary hypertension. Heart and Mediastinum: The visualized portions of the thyroid gland are normal in size and attenuation. No axillary or supraclavicular lymphadenopathy. No mediastinal, hilar or retrocrural lymphadenopathy. Calcified mediastinal lymph nodes. The heart and pericardium are within normal limits. The great vessels of the thorax are normal. Lungs and Airways: Bilateral dependent and basilar subsegmental atelectasis. No pulmonary mass or consolidation. No endoluminal lesion. Pleura: The pleural spaces are normal. Abdomen: Hepatic steatosis. Cholecystectomy. Calcified splenic granulomas. Bones and Soft Tissues: No acute osseous findings. No rib abnormality seen. The soft tissues of the chest wall are within normal limits. IMPRESSION No acute findings. No pulmonary embolus. No rib abnormality seen. Performing Organization Address [facility] Phone Number LEVI * Troponin (09/13/2018 1:16 PM) Only the most recent of 2 results within the time period is included. Troponin <0.01 0.00 - 0.03 ng/mL [facility] Troponin ValueInterpretation 0.00 - 0.03 Healthy 0.04 - 0.12 Increased Cardiac Risk >0.12M yocardial Infarction Troponin may not become elevated until 6 to 8 hours after onset of symptoms. Specimen Blood Performing Organization Address [facility] [place] [facility] Phone Number [facility] [address] [facility], [place] [phone] [facility] [address] [facility] [email or web address] [employer] [place] [address] [facility] * Lipase (09/13/2018 10:45 AM) Lipase 50 23 - 300 IU/L [place] Specimen Blood Performing Organization Address [facility] Phone Number [facility] [address] [facility] [place] [address] [facility] [address] [facility] Center[place] [address] [facility] * Comprehensive Metabolic Panel (09/13/2018 10:45 AM) Only the most recent of 2 results within the time period is included. Sodium 138 133 - 147 MEQ/L [facility] Potassium 4.2 3.5 - 5.3 MEQ/L [facility] Chloride 101 96 - 112 MEQ/L [facility] Carbon Dioxide 28 20 - 32 MEQ/L [facility] Anion Gap 9 5 - 17 [facility] Calcium 9.0 8.4 - 10.5 mg/dL [facility] Glucose 282 (H) 70 - 100 mg/dL [facility] Protein Total Serum 7.4 6.0 - 8.2 g/dL [facility] Albumin 3.9 3.5 - 5.0 g/dL [facility] Alkaline Phosphatase 89 42 - 140 IU/L [facility] Alanine Aminotransferase 45 (H)Comment: ALT reference 0 - 34 IU/L [facility] - range changed on 03-01-2018 [facility] Aspartate 46 15 - 46 IU/L [facility] Bilirubin Total 0.4 0.2 - 1.3 mg/dL [facility] Blood Urea Nitrogen 11 7 - 26 mg/dL [facility] Creatinine 0.6 0.4 - 1.1 mg/dL [facility] eGFR Female AA 120 60 - 200 [facility] - Comment: [facility] Chronic Kidney Disease less than 60 mL/min/1.73 sq.m Kidney failure less than 15 mL/min/1.73 sq.m eGFR Female Non-AA 100 60 - 200 [facility] - Comment: [facility] Chronic Kidney Disease less than 60 mL/min/1.73 sq.m Kidney failure less than 15 mL/min/1.73 sq.m Specimen Blood Performing Organization Address City/State/Zipcode Phone Number [facility] [address] [place] [facility], [place] [phone] [facility] [address] [address] [place] [address] [facility] * CBC and Diff (manual diff if necessary) (09/13/2018 10:45 AM) WBC 8.11 4.00 - 11.00 TH/uL [facility] RBC 4.27 4.00 - 5.00 MIL/uL [facility] Hemoglobin 14.1 12.0 - 15.0 g/dL [facility] Hematocrit 41 36 - 45 % [facility] MCV 97 80 - 99 fL [facility] MCH 33 27 - 34 pg [facility] MCHC 34 32 - 36 % [facility] RDW 13.1 9.0 - 14.5 % [facility] Platelet Count 171 140 - 400 TH/uL [facility] MPV 10.2 9.4 - 12.3 fL [facility] % Neutrophils 66 45 - 78 % [facility] %Lymphocytes 23 15 - 47 % [facility] %Monocytes 7 0 - 12 % [facility] %Eosinophils 4 0 - 7 % [facility] %Basophils 1 0 - 2 % [facility] # Granulocytes 5.32 1.7 - 6.8 TH/uL [facility] # Lymphocytes 1.87 1.0 - 3.3 TH/uL [facility] # Monocytes 0.58 0.2 - 0.9 TH/uL [facility] # Eosinophils 0.29 0.0 - 0.4 TH/uL [facility] # Basophils 0.05 0.0 - 0.1 TH/uL [facility] Specimen Blood Performing Organization Address City/State/Zipcode Phone Number [facility] [address] [place] [address] [facility] [address] [place] [address] [facility] * XR Chest single view frontal (09/13/2018 10:35 AM) Impressions Performed At Bandlike opacity in the left midlung zone possibly [facility] reflecting scarring or atelectasis. No focal consolidation. READING SITE: [facility] Narrative Performed At Patient: ZOE BENÍTEZ Sex#:F # [id number] Jose#:[id number] Location:[facility] SED- Procedure Requested:[id number] XR CHEST SINGLE VIEW FRONTAL Reason for Exam:left sided chest pain Exam Ordered:09/13/20181026 Exam Date/Time:09/13/20181035 Begin exam date/time:09/13/20181030 XR CHEST SINGLE VIEW FRONTAL INDICATION: left sided chest pain. COMPARISON STUDY: 11/18/2017. FINDINGS: Life Support Devices: None. Lungs: Low lung volume with diffuse bronchovascular crowding. Bandlike opacity in the left midlung zone possibly reflecting scarring or atelectasis. No focal consolidation. Pleura: No pleural effusion or pneumothorax. Heart and Mediastinum: Stable heart and mediastinum. Bones and soft tissues: Stable regional skeleton. 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 COMPARISON STUDY: 11/18/2017. FINDINGS: Life Support Devices: None. Lungs: Low lung volume with diffuse bronchovascular crowding. Bandlike opacity in the left midlung zone possibly reflecting scarring or atelectasis. No focal consolidation. Pleura: No pleural effusion or pneumothorax. Heart and Mediastinum: Stable heart and mediastinum. Bones and soft tissues: Stable regional skeleton. IMPRESSION Bandlike opacity in the left midlung zone possibly reflecting scarring or atelectasis. No focal consolidation. READING SITE: [facility] Performing Organization Address [facility] Phone Number [facility] * Electrocardiogram (ECG) (09/13/2018 10:09 AM) QRSd 104 TRACEMASTER QT 412 TRACEMASTER QTC 448 TRACEMASTER ECGHR 71 TRACEMASTER ECGPR 152 TRACEMASTER Narrative Performed At [facility] ED Test Date:2018-09-13 Pat Name: ISIAH BENÍTEZDepartment: ERS Room: SED Gender: Female Billing Clinician: [id number] :1950 Requested By: CHAVA KELYL Order Number: [id number] MD: Measurements IntervalsAxis Rate: 71 P:46 WA: 152QRS:49 QRSD: 104T:56 QT: 412 QTc:448 Interpretive Statements SINUS RHYTHM Procedure Note Interface, External Ris In - 09/13/2018 4:34 PM [facility] ED Test Date: 2018-09-13 Pat Name: ISIAH BENÍTEZ Department: ERS Room: SED Gender: Female Billing Clinician: [id number] : 1950 Requested By: CHAVA KELLY Order Number: [id number] Reading MD: Measurements Intervals [place] Rate: 71 P: 46 WA: 152 QRS: 49 QRSD: 104 T: 56 QT: 412 QTc: 448 Interpretive Statements SINUS RHYTHM Performing Organization Address [facility] Phone Number TRACEMASTER * Microalbumin Random (09/12/2018 3:22 PM) Creatinine Urine Random 320.3 mg/dL [facility] Microalbumin mg/dl 12.10 mg/dL [facility] Microalbumin/Creatinine 37.78 (H) 0.00 - 30.00 ug/mg [facility] Ratio [facility] Specimen Urine Performing Organization Address [place] [facility] Phone Number [facility] [address] [place] [phone] LABORATORIES * Thyroid Stimulating Hormone (09/12/2018 3:22 PM) Thyroid Stimulating 0.04 (L) 0.47 - 4.68 uIU/mL [facility] Hormone [facility] Specimen Blood Performing Organization Address [place] [facility] Phone Number [address] [address] LABORATORIES * T4 Free (09/12/2018 3:22 PM) T4 Free 1.1 0.8 - 2.2 ng/dL [facility] Specimen Blood Performing Organization Address [place] [facility] Phone Number [facility] [address] LABORATORIES * Hemoglobin A1C (09/12/2018 3:22 PM) Hemoglobin A1C 11.6 (H) 4.0 - 5.6 % [facility] Comment: REGIONAL Non-diabetic LABORATORIES 4.0 - 5.6 % Prediabetes 5.7 - 6.4 % Diabetes >=6.5 % Specimen Blood Performing Organization Address [place] [facility] Phone Number [facility] [address] LABORATORIES * DEXA Bone Density Hip Pelvis Spine (09/12/2018 3:16 PM) Narrative Performed At Performing Organization Address [facility] Phone Number MCKESSON from Last 3 Months
--- OUTSIDE RECORDS SUMMARY | 2018-11-20 11:19 | XMS REPORT | Encounter Summary ---
Author Author Organization Address Unknown Phone Unavailable Care Team Providers Care Synchronizer Name Role Phone Ebony Sharp MD PCP Reason for Visit * Reason Comments Other Encounter Details Date Type Department Care Team Description 10/21/2018 Refill [facility] Primary Care Ebony Sharp MD Other - [facility] [place] [address] [facility] [address] [facility] [address] [place] [address] [place] [address] [phone] Social History Tobacco Use Types Packs/Day Years [...]
--- OUTSIDE RECORDS SUMMARY | 2018-11-20 11:19 | XMS REPORT | Encounter Summary ---
Author Author [facility] Organization [facility] Address Unknown Phone Unavailable Care Team Providers Care Activities Concierge Name Role Phone Ebony Sharp MD PCP Reason for Visit * Reason Comments Other Encounter Details Date Type Department Care Team Description 10/23/2018 Refill [facility] Primary Care Ebony Sharp MD Other - [facility] [place] [address] [facility] [address] [facility] [address] [place] [address] [place] [address] [phone] Social History Tobacco Use Types Packs/Day Years [...]
--- OUTSIDE RECORDS SUMMARY | 2018-11-20 11:19 | XMS REPORT | Encounter Summary ---
Author Author [facility] Organization [facility] Address Unknown Phone Unavailable Care Team Providers Care First Crusher Name Role Phone Ebony Sharp MD PCP Reason for Visit * Reason Comments Medication Refill Encounter Details Date Type Department Care Team Description 10/21/2018 Refill [facility] Primary Care RehmertJennifer RNoperations management professionals Refill - [place] [address] [facility] [address] [place], [place] [id number] Social History Tobacco Use Types Packs/Day Years [...]
--- OUTSIDE RECORDS SUMMARY | 2018-11-20 11:19 | XMS REPORT | Encounter Summary ---
Author Author [facility] Organization [facility] Address Unknown Phone Unavailable Care Team Providers Care Train Starter Name Role Phone Ebony Sharp MD PCP Encounter Details Date Type Department Care Team Description 11/01/2018 Education [facility] Surgical [address] Co[address] [facility] [address] [employer] [address] [place], [place] [id number] Social History Tobacco Use Types Packs/Day Years Used Date Former Smoker Cigarettes 0.33 20 Quit: 09/14/2009 Smokeless Tobacco: Never Used Comments: quit 7 years ago Alcohol Use Drinks/Week oz/Week Comments Yes seldom, two to three times a year Sex Assigned at Date Recorded Not on file as of this encounter Last Filed Vital Signs Vital Sign Reading Time Taken Blood Pressure - - Pulse - - Temperature - - Respiratory Rate - - Oxygen Saturation - - Inhaled Oxygen - - Concentration Weight 101.5 kg (223 lb 11.2 oz) 11/01/2018 3:57 PM CDT Height - - Body Mass Index 43.69 11/01/2018 3:57 PM CDT in this encounter Progress Notes * Francoise Coelho RD - 11/01/2018 1:00 PM CDT 3 month medically supervised weight loss program Reviewed post-op diet guidelines for sleeve gastrectomy surgery. Excessive energy intake r/t food and nutrition-related knowledge deficit as evidenced by BMI of 43.69kg/m2. Pt was here for a NEW CLASS ? Provided information booklet to patient. ? Discussed program overview/pathway o ([facility] program: 3 month=4 visits; 6 months=7 visits, pre-op class, surgery and follow-up visits) ? Explained physiology of change & differences between the surgeries. ? Discussed New Eating and Drinking Habits (how to eat and why) o Eating Habits ? Take small bites and chew thoroughly ? Eat slowly, making meals last 20-30 minutes ? Establish a consistent meal pattern of 3 meals/day without snacks ? Avoid dumping syndrome caused by high fat and high sugar foods o Drinking Habits ? Avoid caffeine and carbonation for 6 weeks after surgery ? Do not use straws for 6 weeks after surgery ? Increase water to a minimum of 8 cups/day (64 ounces) ? Avoid drinking 15 minutes before, during and until 45 minutes after meals ? Avoid alcohol for 6 weeks after surgery o Others ? Avoid herbal supplements before surgery ? Quit smoking 8 weeks prior to surgery & remain smoke free for life ? Introduced post-operative diet advancement ? Discussed vitamin needs and dosages for after surgery. ? Discussed nutrition goal to work on for next time. Goals: Pt's goal for next class is to focus food choices on lean proteins and vegetables, begin eliminating starches and sweets Pt's goal for next month is to stop drinking fluids 15 minutes before, during and 45 minutes after meals. Pt was here for a NEW class Defined exercise & explained what is NOT considered exercise for health & weight loss purposes. Explained the exercise expectations of the program: Begin with 60 min/wk and work up to 150 min/wk (2.5-3.0 hrs) by the end of the pre-op program. Expected to maintain at least 150 min/wk until surgery. Discussed obstacles/barriers to exercise & how to work/plan around them. Emphasized proper hydration of a minimum of 64 oz and more if exercising. Showed pt where to find pertinent exercise information in the book. Went over additional considerations in regards to exercise: Checking blood sugar levels pre- and post-exercise. Use of supplemental oxygen or inhalers for pulmonary conditions. Availability of nitroglycerin if prescribed. Pt has an adequate understanding of the exercise expectations/progression of the program. Pt was part of a NEW class covering: Aerobic Exercise Defined aerobic exercise & the benefits it has on cardiorespiratory & metabolic health. Provided pt with handout outlining Rating of Perceived Exertion (RPE) & explained the relation to intensity. Encouraged pt to find an aerobic exercise they enjoy & if needed to make it social for accountability. The pt has an adequate understanding of the benefits of aerobic exercise on cardiorespiratory & metabolic health. Pt was here for a NEW class Defined exercise & explained what is NOT considered exercise for health & weight loss purposes. Explained the exercise expectations of the program: ? Begin with 60 min/wk and work up to 150 min/wk (2.5-3.0 hrs) by the end of the pre-op program. ? Expected to maintain at least 150 min/wk until surgery. Discussed obstacles/barriers to exercise & how to work/plan around them. Emphasized proper hydration of a minimum of 64 oz and more if exercising. Showed pt where to find pertinent exercise information in the book. Went over additional considerations in regards to exercise: ? Checking blood sugar levels pre- and post-exercise. ? Use of supplemental oxygen or inhalers for pulmonary conditions. ? Availability of nitroglycerin if prescribed. Pt has an adequate understanding of the exercise expectations/progression of the program. Patient reports she is currently not exercising. Patient reports she has no gym membership and no access to an indoor pool. Patient reports she has a [employer] at home, an elliptical, free weights, and a stepper. Patient reports she has 2 total knee replacements and COPD that do limit her activity. Patient reports in order to get her 60 minutes of exercise each week she would like to find a water aerobics class to take 3 times a week, and will plan on doing her [employer] for 10-20 minutes a week. in this encounter Plan of Treatment Date Type Specialty Care Team Description 11/29/2018 Education General Surgery as of this encounter Visit Diagnoses Not on filein this encounter
--- OUTSIDE RECORDS SUMMARY | 2018-11-20 11:20 | XMS REPORT | Encounter Summary ---
Author Author [facility] Organization [facility] Address Unknown Phone Unavailable Care Team Providers Care Fiberglass Boat Assembly Supervisor Name Role Phone Ebony Sharp MD PCP Reason for Visit * Reason Comments Other Encounter Details Date Type Department Care Team Description 10/20/2018 Refill [facility] Primary Care Ebony Sharp MD Other - [facility] [place] [address] [facility] [address] [facility] [address] [place] [address] [place] [address] [phone] Social History Tobacco Use Types Packs/Day Years [...]
--- OUTSIDE RECORDS SUMMARY | 2018-11-20 11:20 | XMS REPORT | Encounter Summary ---
Author Author [facility] Organization [facility] Address Unknown Phone Unavailable Care Team Providers Care Pot Feeder Name Role Phone Ebony Sharp MD PCP Encounter Details Date Type Department Care Team Description 09/13/2018 Procedure [facility] [address], [place] [id number] Social History Tobacco Use Types Packs/Day Years [...]
--- OUTSIDE RECORDS SUMMARY | 2018-11-20 11:20 | XMS REPORT | Encounter Summary ---
Author Author [facility] Organization [facility] Address Unknown Phone Unavailable Care Team Providers Care Master Ocean Name Role Phone Ebony Sharp MD PCP Reason for Visit * Reason Comments Other Encounter Details Date Type Department Care Team Description 10/18/2018 Refill [facility] Primary Care Ebony Sharp MD Other - [facility] [place] [address] [facility] [address] [facility] [address] [place] [address] [place] [address] [phone] Social History Tobacco Use Types Packs/Day Years [...]
--- OUTSIDE RECORDS SUMMARY | 2018-11-20 11:20 | XMS REPORT | Encounter Summary ---
Author Author [facility] Organization [facility] Address Unknown Phone Unavailable Care Team Providers Care Information Assurance Manager Name Role Phone Ebony Sharp MD PCP Encounter Details Date Type Department Care Team Description 09/15/2018 Documentation [facility] Primary Care Ebony Sharp MD - [facility] [address] [facility] [address] [facility] [address] [place] [address] [place], [place] [phone] Social History Tobacco Use Types Packs/Day Years [...]
--- OUTSIDE RECORDS SUMMARY | 2018-11-20 11:20 | XMS REPORT | Encounter Summary ---
Author Author [facility] Organization [facility] Address Unknown Phone Unavailable Care Team Providers Care Patient Access Representative Name Role Phone Ebony Sharp MD PCP Reason for Visit * Reason Comments Chest pain Patient presents via [facility] with c/o CP since approx 0630. Pt states its left sided and radiates to back. Pt has IV access and was administered 50 mcg fent, 0.4 nitro sl. Encounter Details Date Type Department Care Team Description 09/13/2018 Emergency [facility] Chava Kelly MD Acute chest pain ([facility] [address] Dx) [address] [place] [address] [place], [place] [id number] Social History Tobacco Use Types Packs/Day Years [...] Taken Blood Pressure 138/85 09/13/2018 2:01 PM GASOLINE CATALYST OPERATOR Pulse 76 09/13/2018 2:54 PM GASOLINE CATALYST OPERATOR Temperature 36.7 C (98.1 F) 09/13/2018 9:59 AM GASOLINE CATALYST OPERATOR Respiratory Rate 16 09/13/2018 2:54 PM GASOLINE CATALYST OPERATOR Oxygen Saturation 91% 09/13/2018 2:54 PM GASOLINE CATALYST OPERATOR Inhaled Oxygen - - Concentration Weight 106.1 kg (234 lb) 09/13/2018 9:59 AM GASOLINE CATALYST OPERATOR Height 152.4 cm (5') 09/13/2018 9:59 AM GASOLINE CATALYST OPERATOR Body Mass Index 45.7 09/13/2018 9:59 AM GASOLINE CATALYST OPERATOR in this encounter Discharge Instructions The following attachments cannot be sent through Care Everywhere.* CHEST PAIN, NONCARDIAC ([facility]ZAKH) in this encounter Medications at Time of Discharge Medication Sig. Disp. Refills Start Date End Date albuterol (VENTOLIN HFA) INHALE 1 PUFF EVERY 4 18 g 2 08/26/2017 90 mcg/actuation HFA HOURS NEEDED FOR inhaler WHEEZING amLODIPine (NORVASC) 2.5 Take 2 tablets (5 mg 180 tablet 1 01/06/2018 MG tablet total) by mouth daily. Take one daily. cyclobenzaprine TAKE 1 TABLET BY MOUTH AT 15 tablet 0 07/19/2018 (FLEXERIL) 10 MG tablet BEDTIME cyclobenzaprine TAKE 1 TABLET(10 MG) BY 14 tablet 0 09/02/2018 (FLEXERIL) 10 MG tablet MOUTH DAILY docusate sodium (COLACE) Take 1 capsule (100 mg 60 capsule 0 2016 100 MG capsule total) by mouth 2 (two) times a day as needed for constipation (first line therapy with polyethlene glycol). insulin syringe (BD Inject under the skin 100 each 0 08/26/2017 ULTRA-FINE) 0.3 mL 31 daily. use as directed gauge x 5/16 insulin syringe 0.3 mL 31 USE DIRECTED 100 each 1 06/21/2018 gauge x 5/16 oxyCODONE-acetaminophen Take 1-2 tablets by mouth 24 tablet 0 2018 (PERCOCET) 5-325 mg per every 8 (eight) hours as tablet needed for pain. Max Daily Dose: 6 tablets OXYGEN THERAPY 2 L/min as needed. simvastatin (ZOCOR) 20 MG TAKE 1 TABLET(20 MG) BY 30 tablet 0 2017 tablet MOUTH EVERY NIGHT spironolactone Take 1 tablet (100 mg 180 tablet 1 09/12/20182018 (ALDACTONE) 100 MG total) by mouth 2 (two) tabletIndications: Hair times a day. (Please take loss, Acne vulgaris 1 daily for the first week) amitriptyline (ELAVIL) 25 TAKE 1 TABLET(25 MG) BY 90 tablet 1 201710/18/2018 MG tablet MOUTH EVERY NIGHT BREO ELLIPTA 200-25 INHALE 1 PUFF BY MOUTH 60 each 1 06/20/2018 mcg/dose INHALER DAILY citalopram (CELEXA) 20 mg Take 1 tablet (20 mg 90 tablet 1 04/26/2018 10/18/2018 tablet total) by mouth daily. gabapentin (NEURONTIN) Take 2 capsules (600 mg 540 capsule 1 201710/18/2018 300 MG capsule total) by mouth 3 (three) times a day. insulin glargine (LANTUS Inject 15 Units under the 1 vial 0 201810/18/2018 U-100 INSULIN) 100 skin nightly. unit/mL injection metoprolol tartrate Take 1 tablet (100 mg 180 tablet 1 01/06/2018 (LOPRESSOR) 100 MG tablet total) by mouth 2 (two) times a day. simvastatin (ZOCOR) 20 MG TAKE 1 TABLET BY MOUTH 14 tablet 0 201810/23/2018 tablet EVERY NIGHT AT BEDTIME as of this encounter Miscellaneous Notes * ED Notes - Kayley Samayoa RN - 09/13/2018 2:24 PM GASOLINE CATALYST OPERATOR Patient calling family for a ride. Came in by ems * ED Provider Notes - Chava Kelly MD - 09/13/2018 10:25 AM GASOLINE CATALYST OPERATOR Formatting of this note may be different from the original. 09/13/2018 [facility] History Chief Complaint Patient presents with Chest pain Patient presents [facility] with c/o CP since approx 0630. Pt states its left sided and radiates to back. Pt has IV access and was administered 50 mcg fent, 0.4 nitro sl. Patient presents to emergency department complaining of left-sided chest pain. She said it started this morning and woke her up. Patient has point tenderness to the left lower rib cage towards the sternum. Patient denies fever, vomiting , diarrhea. She rates the pain a 9 out of 10. Patient does have COPD and is always short of breath. It is not worse now than usual. She says sitting up makes her pain worse. Past Medical History: Diagnosis Date Allergic rhinitis Anxiety Bronchitis, chronic (HCC) Cataract 2011, 2013 bilat cateract surgery Chronic pain disorder back, ribs, and ankle. COPD (chronic obstructive pulmonary disease) (HCC) Depression Diabetes mellitus, type II ([facility]) Endometriosis Fractures [address] in Left ankle Hernia of abdominal cavity Hyperlipidemia Hypertension Obesity On home oxygen therapy 2L - usually needs if has an exerbation of COPD, or resp illness Osteoarthritis Sleep apnea uses CPAP Urinary calculi Urinary tract infection Past Surgical History: Procedure Laterality Date ANKLE FRACTURE SURGERY Left 1998 fx in 3 places and w/screws in place APPENDECTOMY CATARACT EXTRACTION W/ INTRAOCULAR LENS IMPLANT Bilateral SECTION, CLASSIC CHOLECYSTECTOMY COLONOSCOPY HYSTERECTOMY OOPHORECTOMY REMOVAL, HARDWARE, FOOT OR ANKLE Left 04/09/2017 Procedure: LEFT ANKLE REMOVAL OF HARDWARE WITH REVISION LEFT ANKLE ARTHRODESIS ; Surgeon: Adelaida Olivas MD; Location: [facility] Main OR; Service: Orthopedics; Laterality: Left; REPAIR, INCISIONAL HERNIA, LAPAROSCOPIC, USING MESH N/A 05/25/2018 Procedure: LAPAROSCOPIC INCISIONAL HERNIA REPAIR WITH MESH; Surgeon: Medardo Tate MD; Location: [facility]; Service: General; Laterality: N/A; TONSILLECTOMY TOTAL KNEE ARTHROPLASTY Left 2010 TOTAL KNEE ARTHROPLASTY Right 2010 Family History Problem Relation Age of Onset Cancer Mother Stroke Mother Cancer Father Stroke Father Social History Substance Use Topics Smoking status: Former Smoker Packs/day: 0.33 Years: 20.00 Types: Cigarettes Quit date: 09/14/2009 Smokeless tobacco: Never Used Comment: quit 7 years ago Alcohol use Yes Comment: seldom, two to three times a year Review of Systems HENT: Negative for congestion. Eyes: Negative. Endocrine: Negative. Musculoskeletal: Positive for myalgias. Skin: Negative. Neurological: Negative for weakness. Psychiatric/Behavioral: Negative. All other systems reviewed and are negative. Physical Exam BP 138/85 | Pulse 76 | Temp 36.7 C (98.1 F) | Resp 16 | Ht 1.524 m (5') | Wt 106.1 kg (234 lb) | SpO2 91% Comment: 91% RA, PATIENT HAS PRN 02 AT HOME PLACVE ON O2 WHEELCHAIIR FOR LOBBY TO WAIT DR KELLY AND CHARGE INFORMED. PATIENT NON DISTRESS NO SOA COMPLAINTS | BMI 45.70 kg/m Weight Method: Stated Physical Exam Constitutional: She is oriented to person, place, and time. She appears well- developed and well-nourished. She appears distressed. HENT: Head: Normocephalic and atraumatic. Eyes: EOM are normal. Right eye exhibits no discharge. Neck: Normal range of motion. No tracheal deviation present. Cardiovascular: Normal rate, regular rhythm and normal heart sounds. Pulmonary/Chest: Effort normal and breath sounds normal. She has no wheezes. Point tender to left lower sternal side ribcage Abdominal: Soft. There is no tenderness. Musculoskeletal: Normal range of motion. She exhibits no tenderness. Neurological: She is alert and oriented to person, place, and time. No cranial nerve deficit. Skin: Skin is warm and dry. Capillary refill takes less than 2 seconds. Psychiatric: She has a normal mood and affect. Her behavior is normal. Nursing note and vitals reviewed. ED Course Procedures MDM EKG: per my interpretation shows sinus rhythm with a rate of 71 . There are not any ST changes concerning for ischemia. The labs from this visit are Results for orders placed or performed during the hospital encounter of (from the past 24 hour(s)) Electrocardiogram (ECG) Result Value Ref Range QRSd 104 QT 412 QTC 448 ECGHR 71 ECGPR 152 CBC and Diff (manual diff if necessary) Result Value Ref Range WBC 8.11 4.00 - 11.00 TH/uL RBC 4.27 4.00 - 5.00 MIL/uL Hemoglobin 14.1 12.0 - 15.0 g/dL Hematocrit 41 36 - 45 % MCV 97 80 - 99 fL MCH 33 27 - 34 pg MCHC 34 32 - 36 % RDW 13.1 9.0 - 14.5 % Platelet Count 171 140 - 400 TH/uL MPV 10.2 9.4 - 12.3 fL % Neutrophils 66 45 - 78 % %Lymphocytes 23 15 - 47 % %Monocytes 7 0 - 12 % %Eosinophils 4 0 - 7 % %Basophils 1 0 - 2 % # Granulocytes 5.32 1.7 - 6.8 TH/uL # Lymphocytes 1.87 1.0 - 3.3 TH/uL # Monocytes 0.58 0.2 - 0.9 TH/uL # Eosinophils 0.29 0.0 - 0.4 TH/uL # Basophils 0.05 0.0 - 0.1 TH/uL Comprehensive Metabolic Panel Result Value Ref Range Sodium 138 133 - 147 MEQ/L Potassium 4.2 3.5 - 5.3 MEQ/L Chloride 101 96 - 112 MEQ/L Carbon Dioxide 28 20 - 32 MEQ/L Anion Gap 9 5 - 17 Calcium 9.0 8.4 - 10.5 mg/dL Glucose 282 (H) 70 - 100 mg/dL Protein Total Serum 7.4 6.0 - 8.2 g/dL Albumin 3.9 3.5 - 5.0 g/dL Alkaline Phosphatase 89 42 - 140 IU/L Alanine Aminotransferase 45 (H) 0 - 34 IU/L Aspartate Aminotransferase 46 15 - 46 IU/L Bilirubin Total 0.4 0.2 - 1.3 mg/dL Blood Urea Nitrogen 11 7 - 26 mg/dL Creatinine 0.6 0.4 - 1.1 mg/dL GFR Female AA 120 60 - 200 GFR Female Non-AA 100 60 - 200 Troponin Result Value Ref Range Troponin <0.01 0.00 - 0.03 ng/mL Lipase Result Value Ref Range Lipase 50 23 - 300 IU/L Troponin Result Value Ref Range Troponin <0.01 0.00 - 0.03 ng/mL The radiology results are CT Angio Chest Final Result No acute findings. No pulmonary embolus. No rib abnormality seen. XR Chest single view frontal Final Result Bandlike opacity in the left midlung zone possibly reflecting scarring or atelectasis. No focal consolidation. READING SITE: [facility] Ebony Sharp MD [address] [facility] [address] [facility] [address] ED Clinical Impression 1. Acute chest pain Patient ED Dispo ED Disposition Discharge Chava Kelly MD 09/13/18 0116 in this encounter Plan of Treatment Date Type Specialty Care Team Description 11/29/2018 Education General Surgery as of this encounter Procedures Procedure Name Priority Date/Time Associated Diagnosis Comments CT ANGIO CHEST STAT 09/13/2018 Results for this 1:19 PM GASOLINE CATALYST OPERATOR procedure are in the results section. TROPONIN STAT 09/13/2018 Results for this 1:16 PM GASOLINE CATALYST OPERATOR procedure are in the results section. TROPONIN STAT 09/13/2018 Results for this 10:45 AM GASOLINE CATALYST OPERATOR procedure are in the results section. LIPASE STAT 09/13/2018 Results for this 10:45 AM GASOLINE CATALYST OPERATOR procedure are in the results section. COMPREHENSIVE METABOLIC STAT 09/13/2018 Results for this PANEL 10:45 AM GASOLINE CATALYST OPERATOR procedure are in the results section. CBC AND DIFF (MANUAL DIFF STAT 09/13/2018 Results for this IF NECESSARY) 10:45 AM GASOLINE CATALYST OPERATOR procedure are in the results section. XR CHEST SINGLE VIEW STAT 09/13/2018 Results for this FRONTAL 10:35 AM GASOLINE CATALYST OPERATOR procedure are in the results section. ECG STAT 09/13/2018 Results for this 10:09 AM GASOLINE CATALYST OPERATOR procedure are in the results section. in this encounter Results * CT Angio Chest (09/13/2018 1:19 PM) Impressions Performed At No acute findings. No pulmonary embolus. No rib abnormality seen. LEVI Narrative Performed At Patient: ZOE BENÍTEZ Sex#:F # [id number] Jose#:[id number] Location:[facility] ED SED- Procedure Requested:[id number] CT ANGIO CHEST Reason for Exam:severe left sided rib pain Exam Ordered: Exam Date/Time: Begin exam date/time: CT ANGIO CHEST READING SITE: [facility] INDICATION: severe left sided rib pain. [...] Rad Results In - 09/13/2018 1:41 PM GASOLINE CATALYST OPERATOR Patient: ISIAH BENÍTEZ Sex#: F # [id number] Jose#: [id number] Location: [facility] ED SED- Procedure Requested: [id number] CT ANGIO CHEST Reason for Exam: severe left sided rib pain Exam Ordered: 09/13/2018 1115 Exam Date/Time: 09/13/2018 1319 Begin exam date/time: 09/13/[address] ANGIO CHEST READING SITE: [facility] INDICATION: severe left sided rib pain. [...] No rib abnormality seen. Performing Organization Address City/[facility]ode Phone Number [facility] * Troponin (09/13/2018 1:16 PM) Only the most recent of 2 results within the time period is included. Troponin <0.01 0.00 - 0.03 ng/mL [facility] Comment: [facility] Troponin ValueInterpretation 0.00 - 0.03 Healthy 0.04 - 0.12 Increased Cardiac Risk >0.12M yocardial Infarction Troponin may not become elevated until 6 to 8 hours after onset of symptoms. Specimen Blood Performing Organization Address City/[facility]/Zipcode Phone Number [facility] [address] [place] [address] [facility] [address] [place] [address] [facility] * Lipase (09/13/2018 10:45 AM) Lipase 50 23 - 300 IU/L [facility] Specimen Blood Performing Organization Address City/State/Zipcode Phone Number [facility] [address] [place] [address] [facility] [place] [address] [place] [address] [facility] * Comprehensive Metabolic Panel (09/13/2018 10:45 AM) Sodium 138 133 - 147 MEQ/L [facility] Potassium 4.2 3.5 - 5.3 MEQ/L [facility] Chloride 101 96 - 112 MEQ/L [facility] Carbon Dioxide 28 20 - 32 MEQ/L [facility] Anion Gap 9 5 - 17 [facility] Calcium 9.0 8.4 - 10.5 mg/dL [facility] Glucose 282 (H) 70 - 100 mg/dL [facility] Protein Total Serum 7.4 6.0 - 8.2 g/dL [facility] Albumin 3.9 3.5 - 5.0 g/dL [facility] Alkaline Phosphatase 89 42 - 140 IU/L [facility] Alanine Aminotransferase 45 (H)Comment: ALT reference 0 - 34 IU/L [facility] changed on 03-01-2018 [facility] Aspartate 46 15 - 46 IU/L [facility] Bilirubin Total 0.4 0.2 - 1.3 mg/dL [facility] Blood Urea Nitrogen 11 7 - 26 mg/dL [facility] Creatinine 0.6 0.4 - 1.1 mg/dL [facility] eGFR Female AA 120 60 - 200 [facility] - Comment: [facility] Chronic Kidney Disease less than 60 mL/min/1.73 sq.m Kidney failure less than 15 mL/min/1.73 sq.m eGFR Female Non-AA 100 60 - 200 [facility] - Comment: [facility] Chronic Kidney Disease less than 60 mL/min/1.73 sq.m Kidney failure less than 15 mL/min/1.73 sq.m Specimen Blood Performing Organization Address City/State/Zipcode Phone Number [facility] [address] [facility], [place] [id number] [facility] [address] [facility] [place] [id number] [facility] * CBC and Diff (manual diff if necessary) (09/13/2018 10:45 AM) WBC 8.11 4.00 - 11.00 TH/uL [facility] RBC 4.27 4.00 - 5.00 MIL/uL [facility] [facility] Hemoglobin 14.1 12.0 - 15.0 g/dL [facility] [facility] Hematocrit 41 36 - 45 % [facility] MCV 97 80 - 99 fL [facility] [facility] MCH 33 27 - 34 pg [facility] [facility] MCHC 34 32 - 36 % [facility] [facility] RDW 13.1 9.0 - 14.5 % [place] [facility] Platelet Count 171 140 - 400 TH/uL [facility] MPV 10.2 9.4 - 12.3 fL [facility] % Neutrophils 66 45 - 78 % [facility] %Lymphocytes 23 15 - 47 % [facility] %Monocytes 7 0 - 12 % [facility] %Eosinophils 4 0 - 7 % [facility] %Basophils 1 0 - 2 % [facility] # Granulocytes 5.32 1.7 - 6.8 TH/uL [facility] # Lymphocytes 1.87 1.0 - 3.3 TH/uL [facility] # Monocytes 0.58 0.2 - 0.9 TH/uL [facility] # Eosinophils 0.29 0.0 - 0.4 TH/uL [facility] # Basophils 0.05 0.0 - 0.1 TH/uL [facility] Specimen Blood Performing Organization Address City/State/Zipcode Phone Number [facility] [address] [facility] [place] [address] [facility] [address] [facility] [place] [address] [facility] * XR Chest single view frontal (09/13/2018 10:35 AM) Impressions Performed At Bandlike opacity in the left midlung zone possibly LEVI reflecting scarring or atelectasis. No focal consolidation. READING SITE: [facility] Narrative Performed At Patient: ZOE BENÍTEZ Sex#:F # 1950 Jose#:[id number] Location:[facility] ED SED-27Accession#: [id number] Procedure Requested:[id number] XR CHEST SINGLE VIEW FRONTAL Reason for Exam:left sided chest pain Exam Ordered: Exam Date/Time: Begin exam date/time: XR CHEST SINGLE VIEW FRONTAL INDICATION: left [...] Rad Results In - 09/13/2018 11:06 AM GASOLINE CATALYST OPERATOR Patient: ISIAH BENÍTEZ Sex#: F # 1950 Jose#: [id number] Location: [facility] ED SED- Procedure Requested: [id number] XR CHEST SINGLE VIEW FRONTAL Reason for [...] or atelectasis. No focal consolidation. READING SITE: [facility] Organization Address City/State/Zipcode Phone Number [facility] * Electrocardiogram (ECG) (09/13/2018 10:09 AM) QRSd 104 TRACEMASTER QT 412 TRACEMASTER QTC 448 TRACEMASTER ECGHR 71 TRACEMASTER ECGPR 152 TRACEMASTER Narrative Performed At [facility] ED Test Date:2018-09-13 Pat Name: ISIAH BENÍTEZDepartment: [facility] Room: SED Gender: Female Television Repairman: [id number] :1950 Requested By: CHAVA KELLY Order Number: [id number] MD: Measurements IntervalsAxis Rate: 71 P:46 HI: 152QRS:49 QRSD: 104T:56 QT: 412 QTc:448 Interpretive Statements SINUS RHYTHM Procedure Note Interface, External Ris In - 09/13/2018 4:34 PM GASOLINE CATALYST OPERATOR [facility] ED Test Date: 2018-09-13 Pat Name: ISIAH BENÍTEZ Department: ERS Room: SED Gender: Female Television Repairman: [id number] : 1950 Requested By: CHAVA KELLY Order Number: [id number] Reading MD: Measurements Intervals [place] Rate: 71 P: 46 HI: 152 QRS: 49 QRSD: 104 T: 56 QT: 412 QTc: 448 Interpretive Statements SINUS RHYTHM Performing Organization Address City/State/Zipcode Phone Number TRACEMASTER in this encounter Visit Diagnoses Diagnosis Acute chest pain - Primary Unspecified chest pain Administered Medications Medication Order MAR Action Action Date Dose Rate Site fentaNYL (SUBLIMAZE) injection 50 mcg Given 09/13/2018 50 mcg 50 mcg, Intravenous, Once, 09/13/18 10:43 GASOLINE CATALYST OPERATOR at 1027, For 1 dose, Administer over 2 minutes; max dose for IVP is 2 mcg/kg. Note: Limit does not apply to patients who may be tolerant to opioid therapy or on continuous IV or PO opiate therapy. iohexol (OMNIPAQUE) 350 mg iodine/mL Given 09/13/2018 77 mL injection 77 mL 13:17 GASOLINE CATALYST OPERATOR 77 mL, Intravenous, Once in imaging, contrast, Starting 09/13/18 at 1316, For 1 dose ketorolac (TORADOL) injection 15 mg Given 09/13/2018 15 mg 15 mg, Intravenous, Once, e 09/13/18 at 11:23 GASOLINE CATALYST OPERATOR 1114, For 1 dose oxyCODONE-acetaminophen (PERCOCET) 5-325 Given 09/13/2018 2 tablets mg 2 tablet 13:26 GASOLINE CATALYST OPERATOR 2 tablet, Oral, Once, e 09/13/18 at 1320, For 1 dose, Do not exceed 4 GM/DAY of acetaminophen. If 65 or older do not exceed 3 GM/DAY. If chronic alcoholic do not exceed 2 GM/DAY. in this encounter"
--- OUTSIDE RECORDS SUMMARY | 2018-11-20 11:20 | XMS REPORT | Encounter Summary ---
Author Author [facility] Organization [facility] Address Unknown Phone Unavailable Care Team Providers Care Ophthalmic Lens Inspector Name Role Phone Ebony Sharp MD PCP Encounter Details Date Type Department Care Team Description 09/12/2018 Lab [facility] Primary Care Ebony Sharp MD Benign essential HTN; - [facility] [place] [address] [facility] Type 2 diabetes mellitus [address] [facility] [address] with hyperglycemia, with [address] [place] [address] long-term [place] [address] insulin (HCC); [phone] Hyperthyroidism Social History Tobacco Use Types Packs/Day Years Used Date Former Smoker Cigarettes 0.33 20 Quit: 09/14/2009 Smokeless Tobacco: Never Used Comments: quit 7 years ago Alcohol Use Drinks/Week oz/Week Comments Yes seldom, two to three times a year Sex Assigned at Date Recorded Not on file as of this encounter Progress Notes * Ebony Sharp MD - 09/12/2018 3:30 PM PICTURE COPYIST Let us get back on track with your diabetes! Your A1c has gone up significantly. Make sure you are taking your medication and not missing anything. I need you to come back and see me in 3 months to repeat labs. I would like you to hold your biotin supplements for 2-3 weeks before that visit as well as I think it might be affecting her thyroid. I am concerned about you , so I absolutely need to see you in 3 months. Please make the appointment, and make sure not to miss it please. in this encounter Plan of Treatment Date Type Specialty Care Team Description 11/29/2018 Education General Surgery as of this encounter Procedures Procedure Name Priority Date/Time Associated Diagnosis Comments MICROALBUMIN RANDOM Routine 09/12/2018 Type 2 diabetes mellitus Results for this 3:22 PM PICTURE COPYIST with hyperglycemia, with procedure are in the long-term current use of results section. insulin (HCC) THYROID STIMULATING Routine 09/12/2018 Hyperthyroidism Results for this HORMONE 3:22 PM PICTURE COPYIST procedure are in the results section. T4 FREE Routine 09/12/2018 Hyperthyroidism Results for this 3:22 PM PICTURE COPYIST procedure are in the results section. HEMOGLOBIN A1C Routine 09/12/2018 Type 2 diabetes mellitus Results for this 3:22 PM PICTURE COPYIST with hyperglycemia, with procedure are in the long-term current use of results section. insulin (HCC) COMPREHENSIVE METABOLIC Routine 09/12/2018 Benign essential HTN Results for this PANEL 3:22 PM PICTURE COPYIST Type 2 diabetes mellitus procedure are in the with hyperglycemia, with results section. long-term current use of insulin (HCC) in this encounter Results * Comprehensive Metabolic Panel (09/12/2018 3:22 PM) Sodium 139 133 - 147 MEQ/L [facility] Potassium 4.6 3.5 - 5.3 MEQ/L [facility] Chloride 99 96 - 112 MEQ/L [facility] Carbon Dioxide 34 (H) 20 - 32 MEQ/L [facility] Anion Gap 6 5 - 17 [facility] Calcium 9.9 8.4 - 10.5 mg/dL [facility] Glucose 253 (H) 70 - 100 mg/dL [facility] Protein Total Serum 7.3 6.0 - 8.2 g/dL [facility] Albumin 4.0 3.5 - 5.0 g/dL [facility] Alkaline Phosphatase 102 42 - 140 IU/L [facility] Alanine Aminotransferase 47 (H)Comment: ALT reference 0 - 34 IU/L [facility] range changed on 03-01-2018 [facility] Aspartate 45 15 - 46 IU/L [facility] Aminotransferase [facility] Bilirubin Total 0.2 0.2 - 1.3 mg/dL [facility] Blood Urea Nitrogen 16 7 - 26 mg/dL [facility] Creatinine 0.8 0.4 - 1.1 mg/dL [facility] eGFR Female AA 86 60 - 200 [facility] Comment: REGIONAL Chronic Kidney Disease less LABORATORIES than 60 mL/min/1.73 sq.m Kidney failure less than 15 mL/min/1.73 sq.m eGFR Female Non-AA 72 60 - 200 [facility] Comment: REGIONAL Chronic Kidney Disease less LABORATORIES than 60 mL/min/1.73 sq.m Kidney failure less than 15 mL/min/1.73 sq.m Specimen Blood Performing Organization Address City[facility] Phone Number [address] [phone] LABORATORIES * T4 Free (09/12/2018 3:22 PM) T4 Free 1.1 0.8 - 2.2 ng/dL [facility] Specimen Blood Performing Organization Address City/[facility] Phone Number [address] [address] [phone] LABORATORIES * Thyroid Stimulating Hormone (09/12/2018 3:22 PM) Thyroid Stimulating 0.04 (L) 0.47 - 4.68 uIU/mL [facility] LABORATORIES Specimen Blood Performing Organization Address [facility] Phone Number [address] [phone] LABORATORIES * Microalbumin Random (09/12/2018 3:22 PM) Creatinine Urine Random 320.3 mg/dL [facility] Microalbumin mg/dl 12.10 mg/dL [facility] Microalbumin/Creatinine 37.78 (H) 0.00 - 30.00 ug/mg [facility] Ratio [facility] Specimen Urine Performing Organization Address [facility] Phone Number [address] [phone] LABORATORIES * Hemoglobin A1C (09/12/2018 3:22 PM) Hemoglobin A1C 11.6 (H) 4.0 - 5.6 % [facility] Comment: REGIONAL Non-diabetic LABORATORIES 4.0 - 5.6 % Prediabetes 5.7 - 6.4 % Diabetes >=6.5 % Specimen Blood Performing Organization Address City/State/Zipcode Phone Number [place] [phone] [place] [address] LABORATORIES in this encounter Visit Diagnoses Diagnosis Benign essential HTN Type 2 diabetes mellitus with hyperglycemia, 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) Hyperthyroidism Thyrotoxicosis without mention of goiter or other cause, without mention of thyrotoxic crisis or storm
--- OUTSIDE RECORDS SUMMARY | 2018-11-20 11:20 | XMS REPORT | Encounter Summary ---
Author Author [facility] Organization [facility] Address Unknown Phone Unavailable Care Team Providers Care Dental Professional Name Role Phone Ebony Sharp MD PCP Encounter Details Date Type Department Care Team Description 09/27/2018 Documentation [facility] Primary Care Ebony Sharp MD - [facility] [place] [address] [facility] [address] [facility] [address] [place] [address] [place], [place] [id number] Social History Tobacco Use Types Packs/Day Years [...]
--- OUTSIDE RECORDS SUMMARY | 2018-11-20 11:20 | XMS REPORT | Encounter Summary ---
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 Name Role Phone Ebony Sharp MD PCP Reason for Visit * Diagnostic Imaging (Routine) Status Reason Specialty Diagnoses / Referred By Referred To Procedures Contact Contact Closed Radiology Diagnoses Ebony Sharp, [facility] MD [address] [facility] [address] [place] [place] [facility] [address] [id number] DEXA Bone [place], [place] Phone: Density Hip [phone] Pelvis Spine Phone: Encounter Details Date Type Department Care Team Description 09/12/2018 Imaging [facility] Primary Care Ebony Sharp MD Appointment - [facility] [address] [facility] [address] [facility] [address] [place] [address] [place], [place] [id number] Social History Tobacco Use Types Packs/Day Years [...] Procedure Name Priority Date/Time Associated Diagnosis Comments DEXA BONE DENSITY HIP Routine 09/12/2018 Healthcare maintenance PELVIS SPINE 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
--- OUTSIDE RECORDS SUMMARY | 2018-11-20 11:21 | XMS REPORT ---
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 Specialist Name Role Phone Migration, Doctor Unavailable Unavailable PROBLEMS Type Condition ICD9-CM Code WQR13-TE Code Onset Dates Condition Status SNOMED Code Problem COPD (chronic obstructive pulmonary disease) J44.9 Active 02642025 Problem Diabetes E11.9 Active 30002497 Problem Diabetic neuropathy E11.40 Active 859245791 Problem Arthritis M19.90 Active 2456195 ALLERGIES No Information ENCOUNTERS Encounter Location Date Diagnosis [facility] [place] [id number] [place] [address] 12379- 8430 December, [facility] [place] [address] [address]- 4798 Aug, Arthritis M19.90 [facility] [place] [id number] [place] [address] 97539- 1763 Jul, [facility] [place] [address] [address]- 7077 Jul, [facility] [place] [id number] [place] [address] 51123- 0642 Jul, [facility] [place] [id number] [place] [address] 19453- 5508 Jul, [facility] [place] [id number] [place] [address] 75437- 7267 Jul, Diabetes E11.9 ; Diabetic neuropathy E11.40 ; Arthritis M19.90 and COPD (chronic obstructive pulmonary disease) J44.9 [facility] [place] [id number] [place] [address] 21346- 8220 Jul, [facility] [place] [id number] [place] [address] 77770- 2201 Jun, [facility] [place] [facility] [address] [id number] [place] [address]- 5470 23 Jun, 2015 [facility] [place] [facility] [address] [id number] [place] [address]- 0563 17 Jun, 2015 [facility] [place] [facility] [address] [id number] [place] [address]- 6488 10 Jun, 2015 [facility] [place] [facility] [address] [id number] [place] [address]- 1328 15 May, 2015 [facility] [place] [facility] [address] [id number] [place] [address]- 0209 13 May, 2015 [facility] [place] [facility] [address] [id number] [place] [address]- 7007 07 May, 2015 [facility] [place] [facility] [address] [id number] [place] [address]- 0926 22 Apr, 2014 [facility] [place] [facility] [address] [id number] [place] [address]- 4194 21 Apr, 2014 [facility] [place] [facility] [address] [id number] [place] [address]- 1501 21 Apr, 2014 [facility] [place] [facility] [address] [id number] [place] [address]- 5387 15 Apr, 2014 [facility] [place] [facility] [address] [id number] [place] [address]- 4407 11 Sep, 2014 [facility] [place] [facility] [address] [id number] [place] [address]- 2257 09 Sep, 2014 [facility] [place] [facility] [address] [id number] [place] [address]- 2543 08 Sep, 2014 [facility] [place] [facility] [address] [id number] [place] [address]- 0759 03 Sep, 2014 [facility] [place] [facility] [address] [id number] [place] [address]- 1148 02 Sep, 2014 [facility] [place] [facility] [address] [id number] [place] [address]- 9297 Mar, [facility] [place] [address] [address]- 3802 Mar, [facility] [place] [id number] [address] 8706 Mar, [facility] [place] [address] 7161 Mar, [facility] [place] [id number] [place] [address] [id number]- 4445 Mar, [facility] [place] [id number] [place] [address] 131266- 3900 Mar, Diabetes mellitus 250.00 ; COPD (chronic obstructive pulmonary disease) 496 ; Anxiety 300.00 and Arthritis 716.90 [facility] [place] [id number] [address]- 5641 Feb, [facility] [place] [id number] [place] [address] 24524- 2006 Feb, [facility] [place] [address] [address]- 1987 Feb, [facility] [place] [id number] [place] [address] 55562- 2046 Feb, [facility] [place] [address] [address]- 6601 Jan, Seborrheic keratosis 702.19 and Nevus 216.9 [facility] [place] [address] [address]- 8368 Jan, [facility] [place] [address] 3860 Jan, Routine gynecological examination V72.31 ; Breast cancer screening V76.10 ; Hot flashes 627.2 ; Atypical nevi 216.9 and Constipation 564.00 [facility] [place] [address] [address]- 5476 Jan, [facility] [place] [facility] [address] [id number] [place] [address]- 7288 December, [facility] [place] [facility] [address] [id number] [place] [address]- 8139 December, [facility] [place] [facility] [address] [id number] [place] [address]- 6953 Nov, [facility] [place] [facility] [address] [id number] [place] [address]- 8707 Nov, [facility] [place] [facility] [address] [id number] [place] [address]- 4174 Oct, [facility] [place] [facility] [address] [id number] [place] [address]- 4335 23 Oct, 2014 [facility] [place] [facility] [address] [id number] [place] [address]- 8541 18 Oct, 2014 [facility] [place] [facility] [address] [id number] [place] [address]- 5331 18 Oct, 2014 [facility] [place] [facility] [address] [id number] [place] [address]- 8081 17 Oct, 2014 [facility] [place] [facility] [address] [id number] [place] [address]- 7766 17 Oct, 2014 [facility] [place] [facility] [address] [id number] [place] [address]- 7268 16 Oct, 2014 [facility] [place] [facility] [address] [id number] [place] [address]- 4979 16 Oct, 2014 [facility] [place] [facility] [address] [id number] [place] [address]- 3753 11 Oct, 2014 [facility] [place] [facility] [address] [id number] [place] [address]- 5551 11 Oct, 2014 [facility] [place] [facility] [address] [id number] [place] [address]- 3680 Sep, [facility] [place] [facility] [address] [id number] [place] [address]- 3000 Sep, 2014 [facility] [place] [facility] [address] [id number] [place] [address]- 6246 Sep, [facility] [place] [facility] [address] [id number] [place] [address]- 0026 18 Sep, 2014 [facility] [place] [facility] [address] [id number] [place] [address]- 3806 Sep, [facility] [place] [facility] [address] [id number] [place] [address]- 8917 Sep, [facility] [place] [facility] [address] [id number] [place] [address]- 9625 Sep, [facility] [place] [facility] [address] [id number] [place] [address]- 5352 Aug, [facility] [place] [facility] [address] [id number] [place] [address]- 0178 Aug, [facility] [place] [facility] [address] [id number] [place] [address]- 8026 Aug, [facility] [place] [facility] [address] [id number] [place] [address]- 7058 Aug, [facility] [place] [facility] [address] [facility] [id number] [place] [address]- 7348 Aug, [facility] [place] [facility] [address] [id number] [place] [address]- 3215 Aug, [facility] [place] [facility] [address] [id number] [place] [address]- 8030 Jul, [facility] [place] [facility] [address] [id number] [place] [address]- 3293 Jul, [facility] [place] [facility] [address] [id number] [place] [address]- 8100 Jul, [facility] [place] [facility] [address] [id number] [place] [address]- 6045 Jul, [facility] [place] [facility] [address] [id number] [place] [address]- 5516 Jul, [facility] [place] [facility] [address] [id number] [place] [address]- 2645 Jun, [facility] [place] [facility] [address] [id number] [place] [address]- 1619 Jun, [facility] [place] [facility] [address] [id number] [place] [address]- 3873 Jun, [facility] [place] [facility] [address] [id number] [place] [address]- 1167 Jun, [facility] [place] [facility] [address] [id number] [place] [address]- 1585 Jun, [facility] [place] [facility] [address] [id number] [place] [address]- 3183 Jun, [facility] [place] [facility] [address] [id number] [place] [address]- 7924 May, [facility] [place] [facility] [address] [id number] [place] [address]- 7777 May, [facility] [place] [facility] [address] [id number] [place] [address]- 0474 May, [facility] [place] [facility] [address] [id number] [place] [address]- 7035 May, [facility] [place] [facility] [address] [id number] [place] [address]- 3017 May, [facility] [place] [facility] [address] [id number] [place] [address]- 4614 May, [facility] [place] [facility] [address] [id number] [place] [address]- 0654 May, [facility] [place] [facility] [address] [id number] [place] [address]- 8371 May, [facility] [place] [facility] [address] [id number] [place] [address]- 4872 May, [facility] [place] [facility] [address] [id number] [place] [address]- 0526 Apr, [facility] [place] [facility] [address] [id number] [place] [address]- 1809 Apr, [facility] [place] [facility] [address] [id number] [place] [address]- 8195 Apr, [facility] [place] [facility] [address] [id number] [place] [address]- 4294 Apr, [facility] [place] [facility] [address] [id number] [place] [address]- 6560 Mar, [facility] [place] [facility] [address] [id number] [place] [address]- 9743 Mar, [facility] [place] [facility] [address] [id number] [place] [address]- 4991 Mar, [facility] [place] [facility] [address] [id number] [place] [address]- 4945 Mar, [facility] [place] [facility] [address] [id number] [place] [address]- 9662 Mar, [facility] [place] [facility] [address] [id number] [place] [address]- 4953 Mar, [facility] [place] [facility] [address] [id number] [place] [address]- 2651 Feb, [facility] [place] [facility] [address] [id number] [place] [address]- 5446 Feb, [facility] [place] [facility] [address] [id number] [place] [address]- 9094 Feb, [facility] [place] [facility] [address] [id number] [place] [address]- 5581 Feb, [facility] [place] [facility] [address] [id number] [place] [address]- 6262 Feb, [facility] [place] [facility] [address] [id number] [place] [address]- 4008 Feb, 2013 [facility] [place] [facility] [address] [id number] [place] [address]- 2213 Feb, [facility] [place] [facility] [address] [id number] [place] [address]- 2501 Feb, 2013 [facility] [place] [facility] [address] [id number] [place] [address]- 9149 Feb, 2013 [facility] [place] [facility] [address] [id number] [place] [address]- 2506 Feb, 2013 [facility] [place] [facility] [address] [id number] [place] [address]- 5729 Feb, [facility] [place] [facility] [address] [id number] [place] [address]- 6463 Feb, [facility] [place] [facility] [address] [id number] [place] [address]- 2927 Jan, [facility] [place] [facility] [address] [id number] [place] [address]- 6500 Jan, [facility] [place] [facility] [address] [id number] [place] [address]- 1340 Jan, [facility] [place] [facility] [address] [id number] [place] [address]- 5887 Jan, [facility] [place] [facility] [address] [id number] [place] [address]- 8709 Jan, [facility] [place] [facility] [address] [id number] [place] [address]- 2103 Jan, [facility] [place] [facility] [address] [id number] [place] [address]- 3211 Jan, [facility] [place] [facility] [address] [id number] [place] [address]- 5309 Jan, [facility] [place] [facility] [address] [id number] [place] [address]- 0477 Jan, [facility] [place] [facility] [address] [id number] [place] [address]- 2448 Jan, [facility] [place] [facility] [address] [id number] [place] [address]- 9541 Jan, [facility] [place] [facility] [address] [id number] [place] [address]- 7505 Jan, [facility] [place] [facility] [address] [id number] [place] [address]- 6750 Jan, [facility] [place] [facility] [address] [id number] [place] [address]- 6625 Jan, [facility] [place] [facility] [address] [id number] [place] [address]- 7501 Jan, [facility] [place] [facility] [address] [id number] [place] [address]- 3629 Jan, [facility] [place] [facility] [address] [id number] [place] [address]- 1541 Jan, [facility] [place] [facility] [address] [id number] [place] [address]- 0433 December, [facility] [place] [facility] [address] [id number] [place] [address]- 7587 December, [facility] [place] [facility] [address] [id number], [place] [address]- 3239 December, [facility] [place] [facility] [address] [id number], [place] [address]- 7164 December, [facility] [place] [facility] [address] [id number] [place] [address]- 2031 December, [facility] [place] [facility] [address] [id number] [place] [address]- 9861 December, [facility] [place] [facility] [address] [id number] [place] [address]- 4806 Nov, [facility] [place] [facility] [address] [id number], [place] [address]- 8091 Nov, [facility] [place] [facility] [address] [id number] [place] [address]- 0443 Nov, [facility] [place] [facility] [address] [id number] [place] [address]- 7083 Nov, [facility] [place] [facility] [address] [id number] [place] [address]- 4474 Nov, [facility] [place] [facility] [address] [id number] [place] [address]- 6698 Nov, [facility] [place] [facility] [address] [id number] [place] [address]- 2595 Nov, [facility] [place] [facility] [address] [id number] [place] [address]- 3776 Nov, [facility] [place] [facility] [address] [id number] [place] [address]- 8441 Nov, [facility] [place] [facility] [address] [id number] [place] [address]- 4407 Nov, [facility] [place] [facility] [address] [id number] [place] [address]- 2794 Nov, [facility] [place] [facility] [address] [id number] [place] [address]- 6969 Nov, [facility] [place] [facility] [address] [id number] [place] [address]- 1782 Nov, [facility] [place] [facility] [address] [id number] [place] [address]- 9928 Nov, [facility] [place] [facility] [address] [id number] [place] [address]- 7842 Nov, [facility] [place] [facility] [address] [id number] [place] [address]- 8649 Nov, [facility] [place] [facility] [address] [id number] [place] [address]- 3715 Oct, [facility] [place] [facility] [address] [id number] [place] [address]- 0848 31 Oct, 2013 [facility] [place] [facility] [address] [id number] [place] [address]- 7423 Oct, [facility] [place] [facility] [address] [id number] [place] [address]- 2439 Oct, [facility] [place] [facility] [address] [id number] [place] [address]- 5397 Oct, [facility] [place] [facility] [address] [id number] [place] [address]- 5087 Oct, [facility] [place] [facility] [address] [id number] [place] [address]- 5463 Oct, [facility] [place] [facility] [address] [facility] [id number] [place] [address]- 9719 Oct, [facility] [place] [facility] [address] [id number] [place] [address]- 7836 Sep, [facility] [place] [facility] [address] [id number] [place] [address]- 5615 Sep, [facility] [place] [facility] [address] [facility] [id number] [place] [address]- 3112 Sep, [facility] [place] [facility] [address] [facility] [id number] [place] [address]- 1823 Sep, [facility] [place] [facility] [address] [id number] [place] [address]- 5610 Sep, [facility] [place] [facility] [address] [id number] [place] [address]- 3522 Sep, [facility] [place] [facility] [address] [id number] [place] 0117 Aug, [facility] [place] [facility] [address] [id number] [place] 3340 Aug, [facility] [place] [facility] [address] [id number] [place] [address]- 7654 Aug, [facility] [address] [id number] [place] [address]- 7023 Aug, [facility] [place] [facility] [address] [id number] [place] [address]- 3104 Aug, [facility] [place] [facility] [address] [id number] [place] [address]- 7452 Aug, [facility] [place] [facility] [address] [id number] [place] [address]- 8289 Aug, [facility] [place] [facility] [address] [id number] [place] [address]- 5535 Aug, [facility] [place] [facility] [address] [id number] [place] [address]- 8772 Jul, [facility] [place] [facility] [address] [id number] [place] [address]- 0461 Jul, [facility] [place] [facility] [address] [id number] [place] [address]- 8613 Jul, [facility] [place] [facility] [address] [id number] [place] [address]- 6185 Jul, [facility] [place] [facility] [address] [id number] [place] [address]- 6199 Jul, [facility] [place] [facility] [address] [id number] [place] [address]- 6134 Jul, [facility] [place] [facility] [address] [id number] [place] [address]- 5393 Jul, [facility] [place] [facility] [address] [id number] [place] [address]- 8542 Jul, [facility] [place] [facility] [address] [id number] [place]- 4768 Jul, [facility] [place] [facility] [address] [id number] [place] [address]- 5030 Jun, [facility] [place] [facility] [address] [id number] [place] [address]- 2264 14 Jun, 2012 [facility] [place] [facility] [address] [id number] [place] [address] 13 Jun, 2013 [facility] [place] [facility] [address] [id number] [place] [address] 7760 13 Jun, 2013 [facility] [place] [facility] [address] [id number] [place] [address] 07 Jun, 2012 [facility] [place] [facility] [address] [id number] [place] [address] 2357 07 Jun, 2013 [facility] [place] [facility] [address] [id number] [place] [address] 31 May, 2013 [facility] [place] [facility] [address] [id number] [place] [address] 1010 31 May, 2013 [facility] [place] [facility] [address] [id number] [place] [address] 17 May, 2012 [facility] [place] [facility] [address] [id number] [place] [address]- 5617 17 May, 2013 [facility] [place] [facility] [address] [id number] [place] [address]- [address]185 14 May, 2013 [facility] [place] [facility] [address] [id number] [place] [address] 8417 14 May, 2013 [facility] [place] [facility] [address] [id number] [place] [address]- 3774 10 May, 2012 [facility] [place] [facility] [address] [id number] [place] [address]- 4426 10 May, 2013 [facility] [place] [facility] [address] [id number] [place] [address]- 8[address] 07 May, 2013 [facility] [place] [facility] [address] [id number] [place] [address]- 7022 20 Apr, 2012 [facility] [place] [facility] [address] [id number] [place] [address]- 2056 19 Apr, 2013 [facility] [place] [facility] [address] [id number] [place] [address]- [address] 12 Apr, 2012 [facility] [place] [facility] [address] [id number] [place] [address]- 0469 24 Apr, 2011 [facility] [place] [facility] [address] [id number] [place] [address]- 30[address] 21 Apr, 2011 [facility] [place] [facility] [address] [id number] [place] [address]- 7089 21 Apr, 2011 [facility] [place] [facility] [address] [id number] [place] [address]- 5640 14 Apr, 2011 [facility] [place] [facility] [address] [id number] [place] [address]- 1827 10 Apr, 2011 [facility] [place] [facility] [address] [id number] [place] [address]- 2139 06 Apr, 2011 [facility] [place] [facility] [address] [id number] [place] [address]- 6250 04 Apr, 2012 [facility] [place] [facility] [address] [id number] [place] [address]- 8117 31 Mar, 2012 [facility] [place] [facility] [address] [id number] [place] [address]- 3654 28 Mar, 2012 [facility] [place] [facility] [address] [id number] [place] [address]- 8990 27 Mar, 2012 [facility] [place] [facility] [address] [id number] [place] [address]- 2300 10 Mar, 2012 [facility] [place] [facility] [address] [id number] [place] [address]- 06[address] 08 Mar, 2012 [facility] [place] [facility] [address] [id number] [place] [address]- 1051 03 Mar, 2012 [facility] [place] [facility] [address] [id number] [place] [address]- 1755 20 Feb, 2012 [facility] [place] [facility] [address] [id number] [place] [address]- 3[address] 10 Feb, 2012 [facility] [place] [facility] [address] [id number] [place] [address]- 2045 Feb, [facility] [place] [facility] [address] [id number] [place] [address] Jan, [facility] [place] [facility] [address] [id number] [place] [address]649 Jan, [facility] [place] [facility] [address] [id number] [place] [address]- 4[address] Jan, [facility] [place] [facility] [address] [id number] [place] [address]- 89[address] Jan, [facility] [place] [facility] [address] [id number] [place] [address]- 7605 Jan, [facility] [place] [facility] [address] [id number] [place] [address]- 4[address] Jan, [facility] [place] [facility] [address] [id number] [place] [address]- 6[address] Jan, [facility] [place] [facility] [address] [id number] [place] [address]- 8095 Jan, [facility] [place] [facility] [address] [id number] [place] [address]- [address] December, [facility] [place] [facility] [address] [id number] [place] [address] December, [facility] [place] [facility] [address] [id number] [place] [address]- [address] December, [facility] [place] [facility] [address] [id number] [place] [address]- [address] December, [facility] [place] [facility] [address] [id number] [place] [address]- 1573 December, [facility] [place] [facility] [address] [id number] [place] [address]- [address] December, [facility] [place] [facility] [address] [id number] [place] [address]- 9718 13 Nov, 2011 [facility] [address] [id number] [place] [address]- 3186 13 Nov, 2011 [facility] [place] [facility] [address] [id number] [place] [address]- 6130 13 Nov, 2011 [facility] [place] [facility] [address] [id number] [place] [address]- 6056 13 Nov, 2011 [facility] [place] [facility] [address] [id number] [place] [address]- 5169 12 Nov, 2011 [facility] [place] [facility] [address] [id number] [place] [address]- 9156 15 Oct, 2011 [facility] [address] [id number] [place] [address]- 6738 17 Sep, 2011 [facility] [address] [id number] [place] [address] Aug, [facility] [address] [id number] [place] [address]- 74[address] Aug, [facility] [address] [id number] [place] [address]- [address] Aug, [facility] [place] [facility] [address] [id number] [place] [address]- 9943 Aug, [facility] [address] [id number] [place] [address]- 9360 Aug, [facility] [place] [facility] [address] [id number] [place] [address]- 4668 Jul, [facility] [place] [facility] [address] [id number] [place] [address]- 366[address] Jul, [facility] [place] [facility] [address] [id number] [place] [address]- 9567 28 Jun, 2011 [facility] [place] [facility] [address] [id number], [place] [address] Jun, [facility] [address] [facility] [id number], [place] [address] Jun, [facility] [address] [facility] [id number], [place] [address] May, [facility] [address] [facility] [id number], [place] [address] May, [facility] [address] [facility] [id number], [place] [address] Oct, [facility] [address] [facility] [id number] [place] [address]- 2380 Oct, [facility] [address] [facility] [id number] [address] [address] Jul, [facility] [place] [address] [facility] [id number], [place] [address] 08 Jul, 2010 [facility] [address] [facility] [id number], [place] [address] Jul, [facility] [place] [address] [facility] [id number], [place] [address] Jul, [facility] [address] [facility] [id number], [place] [address] Jul, [facility] [place] [address] [facility] [id number], [place] [address] Jun, [facility] [place] [address] [facility] [id number], [place] [address] Jun, [facility] [place] [address] [facility] [id number], [place] [address] Jun, [facility] [place] [address] [facility] [id number][place] [address] May, [facility] [place] [address] [facility] [id number][place] [address] Mar, IMMUNIZATIONS No Known Immunizations SOCIAL HISTORY Never Assessed REASON FOR VISIT [facility] [place] [facility] PLAN OF CARE VITAL SIGNS MEDICATIONS Unknown Medications RESULTS No Results PROCEDURES No Known procedures INSTRUCTIONS MEDICATIONS ADMINISTERED No Known Medications MEDICAL (GENERAL) HISTORY Type Description Date Medical History Hypertension Medical History Chronic obstructive pulmonary disease Medical History Type 2 diabetes mellitus Medical History Psychiatric disorders depression Surgical History Hysterectomy total abdominal 1995 Surgical History Orthopedic Surgery Surgical History Scleral buckle Hospitalization History No Hospitalization history information
--- OUTSIDE RECORDS SUMMARY | 2018-11-20 11:21 | XMS REPORT | Encounter Summary ---
Author Author [facility] Organization [facility] Address Unknown Phone Unavailable Care Team Providers Care Dsp Engineer Name Role Phone Ebony Sharp MD PCP Encounter Details Date Type Department Care Team Description 09/06/2018 Documentation [facility] Surgical TateMedardo pettit MD Specialists [address] [facility] [address] [facility] [address] [place] [address] [place] [address] [phone] Social History Tobacco Use Types Packs/Day Years [...]
--- OUTSIDE RECORDS SUMMARY | 2018-11-20 11:21 | XMS REPORT | Encounter Summary ---
Author Author [facility] Organization [facility] Address Unknown Phone Unavailable Care Team Providers Care Supervisor Mixing Name Role Phone Ebony Sharp MD PCP Reason for Visit * Reason Comments Other Encounter Details Date Type Department Care Team Description 08/30/2018 Refill [facility] Primary Care Ebony Sharp MD Other - [facility] [address] [facility] [address] [facility] [address] [place] [address] [place] [address] [phone] Social History Tobacco Use Types Packs/Day Years [...]
--- OUTSIDE RECORDS SUMMARY | 2018-11-20 11:21 | XMS REPORT | Encounter Summary ---
Author Author [facility] Organization [facility] Address Unknown Phone Unavailable Care Team Providers Care Petroleum Geology Faculty Member Name Role Phone Ebony Sharp MD PCP Reason for Referral * Diagnostic Imaging (Routine) Status Reason Specialty Diagnoses / Referred By Referred To Procedures Contact Contact Canceled Radiology Diagnoses Ebony Sharp [facility] [address] [facility] [address] [facility] [place] [address] roced[address] [facility] [place], [place] [address] screening w CAD [phone] Phone: bilat [phone] * Diagnostic Imaging (Routine) Status Reason Specialty Diagnoses / Referred By Referred To Procedures Contact Contact Closed Radiology Diagnoses Ebony Sharp [facility] [address] [facility] [address] [facility] [place], [place] rocedures [address] [address] DEXA Bone [place], [place] Phone: Density Hip [phone] Pelvis Spine Phone: Reason for Visit * Reason Comments Follow-up 6 months Encounter Details Date Type Department Care Team Description 09/12/2018 Office Visit [facility] Primary Care Ebony Sharp MD Chronic obstructive - [facility] [address] [facility] pulmonary disease, [address] [facility] [address] unspecified COPD type [address] [place] [address] (HCC) (Primary Dx); [place] [address] Hyperlipidemia, unspecified hyperlipidemia type; Benign essential HTN; MATA (generalized anxiety disorder); Type 2 diabetes mellitus with hyperglycemia, 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); Morbid obesity due to excess calories (HCC); Healthcare maintenance; Hair loss; Acne vulgaris; Hyperthyroidism Social History Tobacco Use Types Packs/Day Years Used Date Former Smoker Cigarettes 0.33 20 Quit: 09/14/2009 Smokeless Tobacco: Never Used Comments: quit 7 years ago Alcohol Use Drinks/Week oz/Week Comments Yes seldom, two to three times a year Sex Assigned at Date Recorded Not on file as of this encounter Last Filed Vital Signs Vital Sign Reading Time Taken Blood Pressure 150/80 09/12/2018 2:14 PM MACERATOR OPERATOR Pulse 77 09/12/2018 2:14 PM MACERATOR OPERATOR Temperature - - Respiratory Rate - - Oxygen Saturation 92% 09/12/2018 2:14 PM MACERATOR OPERATOR Inhaled Oxygen - - Concentration Weight 106.6 kg (235 lb) 09/12/2018 2:14 PM MACERATOR OPERATOR Height 156.2 cm (5' 1.5") 09/12/2018 2:14 PM MACERATOR OPERATOR Body Mass Index 43.68 09/12/2018 2:14 PM MACERATOR OPERATOR in this encounter Progress Notes * Ebony Sharp MD - 09/12/2018 2:30 PM MACERATOR OPERATOR Formatting of this note may be different from the original. CC: Follow-up (6 months) HPI : Caren Patten is a 68 y.o. female who presents with complaints of Follow-up (6 months) Thinks amlodipine is causing hair loss, sores on head & face Is having gastro surgery with dr. Bebeto branch. 1.DM2 - Last a1c was at 8.2 2. COPD 3. Obesity - she says she has an appt with Dr. Tate. 4. HTN - taking medication. She is not taking amlodipine right now. 5. HLD - taking simva 6. MATA - stable currently. ALLERGIES: Allergies Allergen Reactions Lisinopril Anaphylaxis Metformin Anaphylaxis Latex, Natural Rubber Sulfa (Sulfonamide Antibiotics) Hives CURRENT MEDICATIONS: Current Outpatient Prescriptions Medication Sig Dispense Refill albuterol (VENTOLIN HFA) 90 mcg/actuation HFA inhaler INHALE 1 PUFF EVERY 4 HOURS NEEDED FOR WHEEZING 18 g 2 amitriptyline (ELAVIL) 25 MG tablet TAKE 1 TABLET(25 MG) BY MOUTH EVERY NIGHT 90 tablet 1 amLODIPine (NORVASC) 2.5 MG tablet Take 2 tablets (5 mg total) by mouth daily. Take one daily. 180 tablet 1 BREO ELLIPTA 200-25 mcg/dose INHALER INHALE 1 PUFF BY MOUTH DAILY 60 each 1 citalopram (CELEXA) 20 mg tablet Take 1 tablet (20 mg total) by mouth daily. 90 tablet 1 cyclobenzaprine (FLEXERIL) 10 MG tablet TAKE 1 TABLET BY MOUTH AT BEDTIME 15 tablet 0 docusate sodium (COLACE) 100 MG capsule Take 1 capsule (100 mg total) by mouth 2 (two) times a day as needed for constipation (first line therapy with polyethlene glycol). 60 capsule 0 gabapentin (NEURONTIN) 300 MG capsule Take 2 capsules (600 mg total) by mouth 3 (three) times a day. 540 capsule 1 insulin glargine (LANTUS U-100 INSULIN) 100 unit/mL injection Inject 15 Units under the skin nightly. 1 vial 0 insulin syringe (BD ULTRA-FINE) 0.3 mL 31 gauge x 5/16 Inject under the skin daily. use as directed 100 each 0 insulin syringe 0.3 mL 31 gauge x 5/16 USE DIRECTED 100 each 1 ipratropium-albuterol (DUO-NEB) 0.5-3 mg/3 mL nebulizer Inhale 3 mL 4 (four ) times a day. 360 mL 11 metoprolol tartrate (LOPRESSOR) 100 MG tablet Take 1 tablet (100 mg total) by mouth 2 (two) times a day. 180 tablet 1 OXYGEN THERAPY 2 L/min as needed. simvastatin (ZOCOR) 20 MG tablet TAKE 1 TABLET BY MOUTH EVERY NIGHT AT BEDTIME 14 tablet 0 cyclobenzaprine (FLEXERIL) 10 MG tablet TAKE 1 TABLET(10 MG) BY MOUTH DAILY 14 tablet 0 simvastatin (ZOCOR) 20 MG tablet Take 1 tablet (20 mg total) by mouth nightly. 90 tablet 1 simvastatin (ZOCOR) 20 MG tablet TAKE 1 TABLET(20 MG) BY MOUTH EVERY NIGHT 30 tablet 0 No current facility-administered medications for this visit. 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 Patten has one daughter, whom she lives with. She does not have an advanced directive. Medical surrogate decision maker is her daughter, Frank Garcia Code status: Full HEALTH MAINTENANCE: Health Maintenance Topic Date Due Spirometry # 1950 Diabetes Mellitus Ophthalmology Exam 1950 Diabetes Mellitus Foot Exam 1962 Mammogram Screening 01/06/2012 Pneumococcal Immunization 65+ (1 of 2 - PCV13) 2017 Diabetes Mellitus Urine Microalbumin 04/08/2018 Diabetes Mellitus Hemoglobin A1C 10/08/2018 Zoster Vaccine# (1 of 2) 08/28/2019 (Originally 2002) Depression Screening PHQ-9 # 04/07/2019 Medicare Annual Wellness 04/07/2019 Lipid Screening 04/07/2019 Fall Risk Assessment # 06/15/2019 Colorectal Screening via Colonoscopy 12/24/2019 Osteoporosis Screening 03/18/2021 Influenza Vaccine Completed Hepatitis C Screen Completed Td # Excluded Immunization History Administered Date(s) Administered Influenza QIV (IM) 06/18/2014, 05/09/2016, 07/09/2017 Influenza Virus Vaccine, Split Virus (Incl. Purified Surface Antigen)- retired Code 07/06/2013 Influenza, Seasonal, Injectable 06/08/2012 Pneumococcal Polysaccharide 23-Valent 05/09/2016 Seasonal Trivalent Influenza Vaccine, Adjuvanted, Preservative Free 2017 Review of Systems Constitutional: Negative. Respiratory: Negative. Cardiovascular: Negative. Gastrointestinal: Negative. Endocrine: Hair loss. Weight gain. Musculoskeletal: Negative. Psychiatric/Behavioral: Negative. OBJECTIVE Vitals: 09/12/18 1414 BP: (!) 150/80 BP Location: Left arm Pulse: 77 SpO2: 92% Weight: 106.6 kg (235 lb) Height: 1.562 m (5' 1.5") Estimated body mass index is 43.68 kg/m as calculated from the following: Height as of this encounter: 1.562 m (5' 1.5"). Weight as of this encounter: 106.6 kg (235 lb). Physical Exam Constitutional: She appears well-developed and well-nourished. HENT: Head: Normocephalic and atraumatic. Cardiovascular: Normal rate, regular rhythm and normal heart sounds. Pulmonary/Chest: Effort normal and breath sounds normal. Neurological: She is alert. No sensory deficit. Skin: Skin is warm and dry. Noticeable hair loss since last visit Psychiatric: She has a normal mood and affect. Her behavior is normal. Nursing note and vitals reviewed. ASSESSMENT/PLAN: Caren was seen today for follow-up. Diagnoses and all orders for this visit: Chronic obstructive pulmonary disease, unspecified COPD type (HCC) Hyperlipidemia, unspecified hyperlipidemia type Benign essential HTN - Comprehensive Metabolic Panel; Future MATA (generalized anxiety disorder) Type 2 diabetes mellitus with hyperglycemia, 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) - Hemoglobin A1C; Future - Microalbumin Random; Future - Comprehensive Metabolic Panel; Future Morbid obesity due to excess calories ([facility]) Healthcare maintenance - DEXA Bone Density Hip Pelvis Spine - [place] Mammogram screening w CAD bilat; Future Hair loss - spironolactone (ALDACTONE) 100 MG tablet; Take 1 tablet (100 mg total) by mouth 2 (two) times a day. (Please take 1 daily for the first week) Acne vulgaris - spironolactone (ALDACTONE) 100 MG tablet; Take 1 tablet (100 mg total) by mouth 2 (two) times a day. (Please take 1 daily for the first week) Hyperthyroidism - Thyroid Stimulating Hormone; Future - T4 Free; Future 1. Hyperthyroid - tsh, t4 2. Hair loss - will add spironolactone. Recheck the tsh, t4. She is taking biotin, so may need to recheck lab after she has held this if it is low. 3. HTN - high. The spironolactone should help with this. 4. Dm2 - check the a1c 5. Acne - hopefully the spironolactone helps. 6. Obesity - per Dr. Tate. I did tell the patient that I have very significant concerns with her frequent no shows to appointments with me and expressed to her the necessity of keeping her appointments with the bariatric clinic as I believe that noncompliance would be a possible disqualifying factor. Ebony Sharp MD in this encounter Plan of Treatment Date Type Specialty Care Team Description 11/29/2018 Education General Surgery Name Priority Associated Diagnoses Order Schedule MA Mammogram screening w CAD bilat Routine Healthcare maintenance 1 Occurrences starting 09/12/2018 until 11/08/2019 as of this encounter Procedures Procedure Name Priority Date/Time Associated Diagnosis Comments DEXA BONE DENSITY HIP Routine 09/12/2018 Healthcare maintenance PELVIS SPINE 3:16 PM MACERATOR OPERATOR in this encounter Results * Comprehensive Metabolic Panel (09/12/2018 3:22 PM) Sodium 139 133 - 147 MEQ/L [facility] Potassium 4.6 3.5 - 5.3 MEQ/L [facility] Chloride 99 96 - 112 MEQ/L [facility] Carbon Dioxide 34 (H) 20 - 32 MEQ/L [facility] Anion Gap 6 5 - 17 [facility] Calcium 9.9 8.4 - 10.5 mg/dL [facility] Glucose 253 (H) 70 - 100 mg/dL [facility] Protein Total Serum 7.3 6.0 - 8.2 g/dL [facility] Albumin 4.0 3.5 - 5.0 g/dL [facility] Alkaline Phosphatase 102 42 - 140 IU/L [facility] Alanine Aminotransferase 47 (H)Comment: ALT reference 0 - 34 IU/L [facility] range changed on 03-01-2018 [facility] Aspartate 45 15 - 46 IU/L [facility] Aminotransferase [facility] Bilirubin Total 0.2 0.2 - 1.3 mg/dL [facility] Blood Urea Nitrogen 16 7 - 26 mg/dL [facility] Creatinine 0.8 0.4 - 1.1 mg/dL [facility] eGFR Female AA 86 60 - 200 [facility] Comment: REGIONAL Chronic Kidney Disease less LABORATORIES than 60 mL/min/1.73 sq.m Kidney failure less than 15 mL/min/1.73 sq.m eGFR Female Non-AA 72 60 - 200 [facility] Comment: REGIONAL Chronic Kidney Disease less LABORATORIES than 60 mL/min/1.73 sq.m Kidney failure less than 15 mL/min/1.73 sq.m Specimen Blood Performing Organization Address [facility] [place] [facility] Phone Number [address] [address] [phone] LABORATORIES * T4 Free (09/12/2018 3:22 PM) T4 Free 1.1 0.8 - 2.2 ng/dL [facility] Specimen Blood Performing Organization Address [facility] [place] [facility] Phone Number [address] [phone] LABORATORIES * Thyroid Stimulating Hormone (09/12/2018 3:22 PM) Thyroid Stimulating 0.04 (L) 0.47 - 4.68 uIU/mL [facility] Hormone [facility] Specimen Blood Performing Organization Address [facility] [place] Phone Number [facility] [address] [place] [address] [phone] LABORATORIES * Microalbumin Random (09/12/2018 3:22 PM) Creatinine Urine Random 320.3 mg/dL [facility] Microalbumin mg/dl 12.10 mg/dL [facility] Microalbumin/Creatinine 37.78 (H) 0.00 - 30.00 ug/mg [facility] Ratio [facility] Specimen Urine Performing Organization Address [facility]/Zipcode Phone Number [facility] [address] [place] [address] [phone] LABORATORIES * Hemoglobin A1C (09/12/2018 3:22 PM) Hemoglobin A1C 11.6 (H) 4.0 - 5.6 % [facility] Comment: REGIONAL Non-diabetic LABORATORIES 4.0 - 5.6 % Prediabetes 5.7 - 6.4 % Diabetes >=6.5 % Specimen Blood Performing Organization Address [facility] Phone Number [facility] [address] [place] [address] [phone] LABORATORIES * DEXA Bone Density Hip Pelvis Spine (09/12/2018 3:16 PM) Narrative Performed At Performing Organization Address [facility] Phone Number [facility] in this encounter Visit Diagnoses Diagnosis Chronic obstructive pulmonary disease, unspecified COPD type ([facility]) - Primary Hyperlipidemia, unspecified hyperlipidemia type Benign essential HTN MATA (generalized anxiety disorder) Generalized anxiety disorder Type 2 diabetes mellitus with hyperglycemia, with long-term current use of insulin ([facility]) Morbid obesity due to excess calories ([facility]) Healthcare maintenance Hair loss Unspecified alopecia Acne vulgaris Other acne Hyperthyroidism Thyrotoxicosis without mention of goiter or other cause, without mention of thyrotoxic crisis or storm
--- OUTSIDE RECORDS SUMMARY | 2018-11-20 11:21 | XMS REPORT | Encounter Summary ---
Author Author [facility] Organization [facility] Address Unknown Phone Unavailable Care Team Providers Care Nailhead Puncher Name Role Phone Ebony Sharp MD PCP Reason for Visit * Reason Comments Pre-op Exam Bypass consult Encounter Details Date Type Department Care Team Description 09/06/2018 Initial consult [facility] Surgical Medardo Tate MD Morbid obesity due to Special[facility] [address] [facility] excess calories (HCC) [address] [facility] [address] [place] [address] Type 2 [place] [address] with hyperglycemia, with [phone] long-term current use of insulin (HCC); Hyperlipidemia, unspecified hyperlipidemia type; Benign essential HTN; SASHA on CPAP Social History Tobacco Use Types Packs/Day Years Used Date Former Smoker Cigarettes 0.33 20 Quit: 09/14/2009 Smokeless Tobacco: Never Used Comments: quit 7 years ago Alcohol Use Drinks/Week oz/Week Comments Yes seldom, two to three times a year Sex Assigned at Date Recorded Not on file as of this encounter Last Filed Vital Signs Vital Sign Reading Time Taken Blood Pressure 166/98 09/06/2018 1:44 PM [employer] Pulse 76 09/06/2018 1:44 PM [employer] Temperature 36.9 C (98.4 F) 09/06/2018 1:44 PM [employer] Respiratory Rate - - Oxygen Saturation - - Inhaled Oxygen - - Concentration Weight 106.6 kg (235 lb) 09/06/2018 1:44 PM [employer] Height 156.2 cm (5' 1.5") 09/06/2018 1:44 PM [employer] Body Mass Index 43.68 09/06/2018 1:44 PM [employer] IN WORKER in this encounter Progress Notes * Medardo Tate MD - 09/06/2018 2:00 PM [employer] Formatting of this note may be different from the original. [facility] Office Visit Patient: Caren Patten is a 68 y.o. female 1950 CSN: [id number] PCP: Ebony Sharp MD Referring physician: No ref. provider found Assessment: Body mass index is 43.68 kg/m. Weight: 106.6 kg (235 lb) Problem List Items Addressed This Visit Type 2 diabetes mellitus with hyperglycemia, 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) (Chronic) Benign essential HTN (Chronic) SASHA on CPAP (Chronic) Hyperlipidemia Morbid obesity due to excess calories (HCC) - Primary Plan: Obtain medical clearance and begin multidisciplinary visits to prepare for Robotic assisted gastric bypass. Detailed pre operative dietary counseling and initial dietary assessment was performed today, including the following discussions: Discussed program overview ([facility] program, pre-op class, surgery and follow- up visits) Explained physiology of change & differences between the surgeries. Discussed exercise strategy and diet techniques (how to eat) Explain why we have them do these things Eating Techniques Small portions (3-4oz lean protein, cup veggies and cup healthy carbohydrates) Chew thoroughly (at least 20 times per bite) Eat slowly (taking 30 minutes to finish a meal) Establish meal pattern of 3 meals/day without snacking Exercise strategy Begin with 60 minutes per week and work up to 150 minutes per week, based on current ability and limitations Further instructions on a personalized basis with recommendations from our cloth bin packer HPI: Caren Patten is a 68 y.o. female who is being seen in consultation for bariatric surgery. She is known to me from a recent incisional hernia repair with mesh 3 months ago. Body mass index is 43.68 kg/m. Comorbidities are listed above. The patient has tried multiple diets, commercial and other, without exterminator helper termite success, and would like to be considered for Robotic assisted gastric bypass. She currently weighs the most that she has ever weighed. She has not been successful with significant weight loss. Past Medical History: Diagnosis Date Allergic rhinitis Anxiety Bronchitis, chronic (HCC) Cataract 2011, 2012 bilat cateract surgery Chronic pain disorder back, ribs, and ankle. COPD (chronic obstructive pulmonary disease) (HCC) Depression Diabetes mellitus, type II (HCC) Endometriosis Fractures [address] [...] ARTHRODESIS ; Surgeon: Adelaida Olivas MD; Location: [facility] Main OR; Service: Orthopedics; Laterality: Left; REPAIR, INCISIONAL HERNIA, LAPAROSCOPIC, USING MESH N/A 05/25/2018 Procedure: LAPAROSCOPIC INCISIONAL HERNIA REPAIR WITH MESH; Surgeon: Medardo Tate MD; Location: [facility] Main OR; Service: General; Laterality: N/A; TONSILLECTOMY TOTAL KNEE ARTHROPLASTY Left 2010 TOTAL KNEE ARTHROPLASTY Right 2010 Patient Active Problem List Diagnosis COPD (chronic obstructive pulmonary disease) (HCC) Hyperlipidemia Chronic pain Elevated MCV MATA (generalized anxiety disorder) Hair loss SASHA (obstructive sleep apnea) Iron deficiency Goldberg-Ekbom syndrome Parasomnia Type 2 diabetes mellitus with hyperglycemia, 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) Benign essential HTN SASHA on CPAP Morbid obesity due to excess calories (HCC) Bleeding Post-op pain Acute bleeding Draining postoperative wound COPD exacerbation (HCC) Renal calculus Closed left ankle fracture Influenza A Diabetes mellitus, type II (HCC) Family History Problem Relation Age of Onset Cancer Mother Stroke Mother Cancer Father Stroke Father Social History Social History Marital status: Spouse [...] No Sexual activity: No Other Topics Concern Not on file Social History Narrative Ms. Patten has one daughter, whom she lives with. She does not have an advanced directive. Medical surrogate decision maker is her daughter, Frank Garcia Code status: Full Allergies Allergen Reactions Lisinopril Anaphylaxis Metformin Anaphylaxis Latex, Natural Rubber Sulfa (Sulfonamide Antibiotics) Hives Current Outpatient Prescriptions Medication Sig Dispense Refill [...] total) by mouth daily. 90 tablet 1 docusate sodium (COLACE) 100 MG capsule Take [...] BY MOUTH EVERY NIGHT 30 tablet 0 cyclobenzaprine (FLEXERIL) 10 MG tablet TAKE 1 TABLET BY MOUTH AT BEDTIME 15 tablet 0 cyclobenzaprine (FLEXERIL) 10 MG tablet TAKE 1 TABLET(10 MG) BY MOUTH DAILY 14 tablet 0 simvastatin (ZOCOR) 20 MG tablet Take 1 tablet (20 mg total) by mouth nightly. 90 tablet 1 simvastatin (ZOCOR) 20 MG tablet TAKE 1 TABLET BY MOUTH EVERY NIGHT AT BEDTIME 14 tablet 0 No current facility-administered medications for this visit. Review of Systems Constitutional: Positive for malaise/fatigue. HENT: Positive for congestion. Eyes: Negative. Respiratory: Positive for cough, sputum production, shortness of breath and wheezing. Cardiovascular: Negative. Gastrointestinal: Positive for constipation. Genitourinary: Negative. Musculoskeletal: Negative. Skin: Negative. Neurological: Negative. Endo/Heme/Allergies: Bruises/bleeds easily. Psychiatric/Behavioral: Negative. All other systems reviewed and are negative. Physical Exam: Vitals: 09/06/18 1344 BP: (!) 166/98 Pulse: 76 Temp: 36.9 C (98.4 F) Weight: 106.6 kg (235 lb) Height: 1.562 m (5' 1.5") General: Alert and oriented and in no apparent distress. HEENT: Normocephalic, atraumatic. Sclera: Anicteric. Neck: Supple, no masses, no bruits, no lymphadenopathy. Chest: Clear to auscultation bilaterally. No crackles or wheezes. Cardiovascular: Regular rate and rhythm. Abdomen: Soft, non-tender, non-distended, healed surgical scars from laparoscopy. No Hepatosplenomegaly. Extremities: Non-tender, no edema. Skin: Grossly normal. Neurological: Cranial nerves are grossly intact. Mood and affect is normal. Electronically signed by: Medardo Tate MD, FACS 09/06/18 in this encounter Plan of Treatment Date Type Specialty Care Team Description 11/29/2018 [facility] [place] General Surgery as of this encounter Visit Diagnoses Diagnosis Morbid obesity due to excess calories (HCC) - Primary Type 2 diabetes mellitus with hyperglycemia, 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) Hyperlipidemia, unspecified hyperlipidemia type Benign essential HTN SASHA on CPAP
--- OUTSIDE RECORDS SUMMARY | 2018-11-20 11:21 | XMS REPORT | Encounter Summary ---
Author Author [facility] Organization [facility] Address Unknown Phone Unavailable Care Team Providers Care Operational Communication Chief Name Role Phone Ebony Sharp MD PCP Reason for Visit * Reason Comments Other Encounter Details Date Type Department Care Team Description 08/25/2018 Refill [facility] Primary Care Ebony Sharp MD Other - [facility] [place] [address] [facility] [address] [facility] [address] [place] [address] [place] [address] [phone] Social History Tobacco Use Types Packs/Day Years [...]
--- OUTSIDE RECORDS SUMMARY | 2018-11-20 11:22 | XMS REPORT ---
Author Author LAURIE LYLE Organization [employer] Address Unknown Phone Unavailable Care Team Providers Care Internal Medicine Physician Assistant Name Role Phone LAURIE LYLE CP Unavailable Allergies No Known Allergies Problems No Known Problems Medications Medication Code System Code Instructions Start Date End Date Status Dosage Duragesic NDC 0 50 mcg/hr October 31, 2014 1 PATCH by Topical route every 72 hours Results No Known Results Summary Purpose [employer] Submission
--- OUTSIDE RECORDS SUMMARY | 2018-11-20 11:22 | XMS REPORT ---
Author Author LAURIE LYLE Organization [employer] Address Unknown Phone Unavailable Care Team Providers Care Insurance Coder Name Role Phone LAURIE LYLE CP Unavailable Allergies No Known Allergies Problems No Known Problems Medications Medication Code System Code Instructions Start Date End Date Status Dosage Duragesic NDC 0 50 mcg/hr October 31, 2014 1 PATCH by Topical route every 72 hours Results No Known Results Summary Purpose [employer] Submission
--- OUTSIDE RECORDS SUMMARY | 2018-11-20 11:22 | XMS REPORT ---
Author Author LAURIE LYLE Organization [employer] Address Unknown Phone Unavailable Care Team Providers Care Awning Spreader Name Role Phone LAURIE LYLE CP Unavailable Allergies No Known Allergies Problems No Known Problems Medications Medication Code System Code Instructions Start Date End Date Status Dosage Oxycodone-Acetaminophen [facility] [address]-57 10-325 MG Orally every 6 hrs December 25, 2014 1 tablet as needed Results No Known Results Summary Purpose [employer] Submission
--- OUTSIDE RECORDS SUMMARY | 2018-11-20 11:22 | XMS REPORT ---
Author Author LAURIE LYLE Organization [employer] Address Unknown Phone Unavailable Care Team Providers Care Carton And Can Supply Supervisor Name Role Phone LAURIE LYLE CP Unavailable Allergies No Known Allergies Problems No Known Problems Medications No Known Medications Results No Known Results Summary Purpose [employer] Submission
--- OUTSIDE RECORDS SUMMARY | 2018-11-20 11:22 | XMS REPORT ---
Author Author LAURIE LYLE Organization [employer] Address Unknown Phone Unavailable Care Team Providers Care Online Marketing Manager Name Role Phone LAURIE LYLE CP Unavailable Allergies No Known Allergies Problems No Known Problems Medications Medication Code System Code Instructions Start Date End Date Status Dosage Gabapentin [facility] [address]-32 100 MG Orally Three times a day TAKE ONE CAPSULE BY MOUTH THREE TIMES DAILY NEEDED FOR PAIN Results No Known Results Summary Purpose [employer] Submission
--- OUTSIDE RECORDS SUMMARY | 2018-11-20 11:22 | XMS REPORT ---
Author Author Migration, Doctor Organization [facility] Address Unknown Phone Unavailable Care Team Providers Care Hot Blaster Name Role Phone Migration, Doctor Unavailable Unavailable PROBLEMS Type Condition ICD9-CM Code DXL30-JG Code Onset Dates Condition Status SNOMED Code Problem COPD (chronic obstructive pulmonary disease) J44.9 Active 73221366 Problem Diabetes E11.9 Active 42979952 Problem Diabetic neuropathy E11.40 Active 608626211 Problem Arthritis M19.90 Active [id number] ALLERGIES No Information ENCOUNTERS Encounter Location Date Diagnosis [facility] [id number] [place] [address] 63213- 5845 December, [facility] [address] [address]- [address]29 Aug, Arthritis M19.90 [facility] [id number] [place] [address] 58368- 8828 Jul, [facility] [address] [address]- 7386 Jul, [facility] [id number] [place] [address] 60251- 0666 Jul, [facility] [id number] [place] [address] 16595- 5382 Jul, [facility] [id number] [place] [address] 92632- 7324 Jul, Diabetes E11.9 ; Diabetic neuropathy E11.40 ; Arthritis M19.90 and COPD (chronic obstructive pulmonary disease) J44.9 [facility] [id number] [place] [address] 13183- 8528 Jul, [facility] [id number] [place] [address] 25378- 6677 Jun, [facility] [place] [facility] [address] [id number] [place] [address]- 8467 23 Jun, 2015 [facility] [place] [facility] [address] [id number] [place] [address]- 3191 17 Jun, 2015 [facility] [place] [facility] [address] [id number] [place] [address]- 8587 10 Jun, 2015 [facility] [place] [facility] [address] [id number] [place] [address]- 6960 15 May, 2015 [facility] [place] [facility] [address] [id number] [place] [address]- 7235 13 May, 2015 [facility] [place] [facility] [address] [id number] [place] [address]- 5295 07 May, 2015 [facility] [place] [facility] [address] [id number] [place] [address]- 5220 22 Apr, 2014 [facility] [place] [facility] [address] [id number] [place] [address]- 4638 21 Apr, 2014 [facility] [place] [facility] [address] [id number] [place] [address]- 7441 21 Apr, 2014 [facility] [place] [facility] [address] [id number] [place] [address]- 5815 15 Apr, 2014 [facility] [place] [facility] [address] [id number] [place] [address]- 5041 11 Sep, 2014 [facility] [place] [facility] [address] [id number] [place] [address]- 3290 09 Sep, 2014 [facility] [place] [facility] [address] [id number] [place] [address]- 2549 08 Sep, 2014 [facility] [place] [facility] [address] [id number] [place] [address]- 3168 03 Sep, 2014 [facility] [place] [facility] [address] [id number] [place] [address]- 0072 02 Sep, 2014 [facility] [place] [facility] [address] [id number] [place] [address]- 6221 Mar, [facility] [id number] [address] 4319 Mar, [facility] [id number] [address]- 6385 Mar, [facility] [id number] 2586 Mar, [facility] [id number] [place] [address] 788552- 0651 Mar, [facility] [id number] [place] [address] 047578- 5840 Mar, Diabetes mellitus 250.00 ; COPD (chronic obstructive pulmonary disease) 496 ; Anxiety 300.00 and Arthritis 716.90 [facility] [id number] [address] 9508 Feb, [facility] [id number] [place] [address] 07265- 7968 Feb, [facility] [address] [address]- 5323 Feb, [facility] [id number] [place] [address] 29568- 6195 Feb, [facility] [id number] [address]- 0230 Jan, Seborrheic keratosis 702.19 and Nevus 216.9 [facility] [address] [address]- 6636 Jan, [facility] [address] [address] [address] Jan, Routine gynecological examination V72.31 ; Breast cancer screening V76.10 ; Hot flashes 627.2 ; Atypical nevi 216.9 and Constipation 564.00 [facility] [address] [address]- 5241 Jan, [facility] [place] [facility] [address] [id number] [place] [address]- 4376 December, [facility] [place] [facility] [address] [id number] [place] [address]- 0192 December, [facility] [place] [facility] [address] [id number] [place] [address]- 7320 Nov, [facility] [place] [facility] [address] [id number] [place] [address]- 4773 Nov, [facility] [place] [facility] [address] [id number] [place] [address]- 9199 Oct, [facility] [place] [facility] [address] [id number] [place] [address]- 2399 23 Oct, 2014 [facility] [place] [facility] [address] [id number] [place] [address]- 8887 18 Oct, 2014 [facility] [place] [facility] [address] [id number] [place] [address]- 0211 18 Oct, 2014 [facility] [place] [facility] [address] [id number] [place] [address]- 6742 17 Oct, 2014 [facility] [place] [facility] [address] [id number] [place] [address]- 9757 17 Oct, 2014 [facility] [place] [facility] [address] [id number] [place] [address]- 1701 16 Oct, 2014 [facility] [place] [facility] [address] [id number] [place] [address]- 5970 16 Oct, 2014 [facility] [place] [facility] [address] [id number] [place] [address]- 1364 11 Oct, 2014 [facility] [place] [facility] [address] [id number] [place] [address]- 4964 11 Oct, 2014 [facility] [place] [facility] [address] [id number] [place] [address]- 7204 Sep, [facility] [place] [facility] [address] [id number] [place] [address]- 0693 Sep, 2014 [facility] [place] [facility] [address] [id number] [place] [address]- 6136 Sep, [facility] [place] [facility] [address] [id number] [place] [address]- 9506 18 Sep, 2014 [facility] [place] [facility] [address] [id number] [place] [address]- 6786 Sep, [facility] [place] [facility] [address] [id number] [place] [address]- 6872 Sep, [facility] [place] [facility] [address] [id number] [place] [address]- 9153 Sep, [facility] [place] [facility] [address] [id number] [place] [address]- 0909 Aug, [facility] [place] [facility] [address] [id number] [place] [address]- 6438 Aug, [facility] [place] [facility] [address] [id number] [place] [address]- 0567 Aug, [facility] [place] [facility] [address] [id number] [place] [address]- 5360 Aug, [facility] [place] [facility] [address] [facility] [id number] [place] [address]- 0645 Aug, [facility] [place] [facility] [address] [id number] [place] [address]- 9743 Aug, [facility] [place] [facility] [address] [id number] [place] [address]- 3368 Jul, [facility] [place] [facility] [address] [id number] [place] [address]- 0769 Jul, [facility] [place] [facility] [address] [id number] [place] [address]- 9687 Jul, [facility] [place] [facility] [address] [id number] [place] [address]- 6556 Jul, [facility] [place] [facility] [address] [id number] [place] [address]- 5343 Jul, [facility] [place] [facility] [address] [id number] [place] [address]- 6698 Jun, [facility] [place] [facility] [address] [id number] [place] [address]- 6882 Jun, [facility] [place] [facility] [address] [id number] [place] [address]- 4047 Jun, [facility] [place] [facility] [address] [id number] [place] [address]- 5732 Jun, [facility] [place] [facility] [address] [id number] [place] [address]- 1920 Jun, [facility] [place] [facility] [address] [id number] [place] [address]- 8618 Jun, [facility] [place] [facility] [address] [id number] [place] [address]- 9383 May, [facility] [place] [facility] [address] [id number] [place] [address]- 1656 May, [facility] [place] [facility] [address] [id number] [place] [address]- 3527 May, [facility] [place] [facility] [address] [id number] [place] [address]- 7468 May, [facility] [place] [facility] [address] [id number] [place] [address]- 9682 May, [facility] [place] [facility] [address] [id number] [place] [address]- 1557 May, [facility] [place] [facility] [address] [id number] [place] [address]- 7391 May, [facility] [place] [facility] [address] [id number] [place] [address]- 9883 May, [facility] [place] [facility] [address] [id number] [place] [address]- 7460 May, [facility] [place] [facility] [address] [id number] [place] [address]- 8271 Apr, [facility] [place] [facility] [address] [id number] [place] [address]- 5284 Apr, [facility] [place] [facility] [address] [id number] [place] [address]- 4148 Apr, [facility] [place] [facility] [address] [id number] [place] [address]- 4613 Apr, [facility] [place] [facility] [address] [id number] [place] [address]- 4605 Mar, [facility] [place] [facility] [address] [id number] [place] [address]- 2599 Mar, [facility] [place] [facility] [address] [id number] [place] [address]- 4112 Mar, [facility] [place] [facility] [address] [id number] [place] [address]- 0414 Mar, [facility] [place] [facility] [address] [id number] [place] [address]- 0334 Mar, [facility] [place] [facility] [address] [id number] [place] [address]- 2116 Mar, [facility] [place] [facility] [address] [id number] [place] [address]- 4709 Feb, [facility] [place] [facility] [address] [id number] [place] [address]- 5361 Feb, [facility] [place] [facility] [address] [id number] [place] [address]- 1704 Feb, [facility] [place] [facility] [address] [id number] [place] [address]- 7924 Feb, [facility] [place] [facility] [address] [id number] [place] [address]- 2409 Feb, [facility] [place] [facility] [address] [id number] [place] [address]- 6918 Feb, 2013 [facility] [place] [facility] [address] [id number] [place] [address]- 3926 Feb, [facility] [place] [facility] [address] [id number] [place] [address]- 4668 Feb, 2013 [facility] [place] [facility] [address] [id number] [place] [address]- 2311 Feb, 2013 [facility] [place] [facility] [address] [id number] [place] [address]- 8056 Feb, 2013 [facility] [place] [facility] [address] [id number] [place] [address]- 3088 Feb, [facility] [place] [facility] [address] [id number] [place] [address]- 6326 Feb, [facility] [place] [facility] [address] [id number] [place] [address]- 9274 Jan, [facility] [place] [facility] [address] [id number] [place] [address]- 4799 Jan, [facility] [place] [facility] [address] [id number] [place] [address]- 7182 Jan, [facility] [place] [facility] [address] [id number] [place] [address]- 1124 Jan, [facility] [place] [facility] [address] [id number] [place] [address]- 5649 Jan, [facility] [place] [facility] [address] [id number] [place] [address]- 4900 Jan, [facility] [place] [facility] [address] [id number] [place] [address]- 4603 Jan, [facility] [place] [facility] [address] [id number] [place] [address]- 0535 Jan, [facility] [place] [facility] [address] [id number] [place] [address]- 5576 Jan, [facility] [place] [facility] [address] [id number] [place] [address]- 8565 Jan, [facility] [place] [facility] [address] [id number] [place] [address]- 7337 Jan, [facility] [place] [facility] [address] [id number] [place] [address]- 6617 Jan, [facility] [place] [facility] [address] [id number] [place] [address]- 7700 Jan, [facility] [place] [facility] [address] [id number] [place] [address]- 6044 Jan, [facility] [place] [facility] [address] [id number] [place] [address]- 5016 Jan, [facility] [place] [facility] [address] [id number] [place] [address]- 0419 Jan, [facility] [place] [facility] [address] [id number] [place] [address]- 0057 Jan, [facility] [place] [facility] [address] [id number] [place] [address]- 8958 December, [facility] [place] [facility] [address] [id number] [place] [address]- 5683 December, [facility] [place] [facility] [address] [id number] [address]- 6219 December, [facility] [place] [facility] [address] [id number], [place] [address]- 9046 December, [facility] [place] [facility] [address] [id number] [place] [address]- 4970 December, [facility] [place] [facility] [address] [id number] [place] [address]- 7239 December, [facility] [place] [facility] [address] [id number] [place] [address]- 1334 Nov, [facility] [place] [facility] [address] [id number], [place] [address]- 2469 Nov, [facility] [place] [facility] [address] [id number] [place] [address]- 7471 Nov, [facility] [place] [facility] [address] [id number] [place] [address]- 0034 Nov, [facility] [place] [facility] [address] [id number] [place] [address]- 4504 Nov, [facility] [place] [facility] [address] [id number] [place] [address]- 8401 Nov, [facility] [place] [facility] [address] [id number] [place] [address]- 7062 Nov, [facility] [place] [facility] [address] [id number] [place] [address]- 1324 Nov, [facility] [place] [facility] [address] [id number] [place] [address]- 3260 Nov, [facility] [place] [facility] [address] [id number] [place] [address]- 0743 Nov, [facility] [place] [facility] [address] [id number] [place] [address]- 2733 Nov, [facility] [place] [facility] [address] [id number] [place] [address]- 6320 Nov, [facility] [place] [facility] [address] [id number] [place] [address]- 2682 Nov, [facility] [place] [facility] [address] [id number] [place] [address]- 1606 Nov, [facility] [place] [facility] [address] [id number] [place] [address]- 2508 Nov, [facility] [place] [facility] [address] [id number] [place] [address]- 0703 Nov, [facility] [place] [facility] [address] [id number] [place] [address]- 0302 Oct, [facility] [place] [facility] [address] [id number] [place] [address]- 8704 31 Oct, 2013 [facility] [place] [facility] [address] [id number] [place] [address]- 9947 Oct, [facility] [place] [facility] [address] [id number] [place] [address]- 4775 Oct, [facility] [place] [facility] [address] [id number] [place] [address]- 4742 Oct, [facility] [place] [facility] [address] [id number] [place] [address]- 5660 Oct, [facility] [place] [facility] [address] [id number] [place] [address]- 6173 Oct, [facility] [place] [facility] [address] [facility] [id number] [place] [address]- 9425 Oct, [facility] [place] [facility] [address] [id number] [place] [address]- 3309 Sep, [facility] [place] [facility] [address] [id number] [place] [address]- 1953 Sep, [facility] [place] [facility] [address] [facility] [id number] [place] [address]- 4942 Sep, [facility] [place] [facility] [address] [facility] [id number] [place] [address]- 8042 Sep, [facility] [place] [facility] [address] [id number] [place] [address]- 4368 Sep, [facility] [place] [facility] [address] [id number] [place] [address]- 9033 Sep, [facility] [place] [facility] [address] [id number] [place] 0119 Aug, [facility] [place] [facility] [address] [id number] [place] 2423 Aug, [facility] [place] [facility] [address] [id number] [place] [address]- 5035 Aug, [facility] [address] [id number] [place] [address]- 7443 Aug, [facility] [place] [facility] [address] [id number] [place] [address]- 7039 Aug, [facility] [place] [facility] [address] [id number] [place] [address]- 3940 Aug, [facility] [place] [facility] [address] [id number] [place] [address]- 4002 Aug, [facility] [place] [facility] [address] [id number] [place] [address]- 9674 Aug, [facility] [place] [facility] [address] [id number] [place] [address]- 5691 Jul, [facility] [place] [facility] [address] [id number] [place] [address]- 9431 Jul, [facility] [place] [facility] [address] [id number] [place] [address]- 9185 Jul, [facility] [place] [facility] [address] [id number] [place] [address]- 5589 Jul, [facility] [place] [facility] [address] [id number] [place] [address]- 8941 Jul, [facility] [place] [facility] [address] [id number] [place] [address]- 8804 Jul, [facility] [place] [facility] [address] [id number] [place] [address]- 6777 Jul, [facility] [place] [facility] [address] [id number] [place] [address]- 4437 Jul, [facility] [place] [facility] [address] [id number] [place] 0810 Jul, [facility] [place] [facility] [address] [id number] [place] [address]- 6355 Jun, [facility] [place] [facility] [address] [id number] [place] [address]- 5190 14 Jun, 2012 [facility] [place] [facility] [address] [id number] [place] [address]- 6824 13 Jun, 2013 [facility] [place] [facility] [address] [id number] [place] [address]- 8915 13 Jun, 2013 [facility] [place] [facility] [address] [id number] [place] [address]- 9361 07 Jun, 2012 [facility] [place] [facility] [address] [id number] [place] [address]- 6736 07 Jun, 2013 [facility] [place] [facility] [address] [id number] [place] [address]- [address] 31 May, 2013 [facility] [place] [facility] [address] [id number] [place] [address] 31 May, 2013 [facility] [place] [facility] [address] [id number] [place] [address] 17 May, 2012 [facility] [place] [facility] [address] [id number] [place] [address] 17 May, 2013 [facility] [place] [facility] [address] [id number] [place] [address]679 14 May, 2013 [facility] [place] [facility] [address] [id number] [place] [address] 14 May, 2013 [facility] [place] [facility] [address] [id number] [place] [address]305 10 May, 2012 [facility] [place] [facility] [address] [id number] [place] [address] 8400 10 May, 2013 [facility] [place] [facility] [address] [id number] [place] [address] 9262 07 May, 2013 [facility] [place] [facility] [address] [id number] [place] [address] 2866 20 Apr, 2012 [facility] [place] [facility] [address] [id number] [place] [address] 9836 19 Apr, 2013 [facility] [place] [facility] [address] [id number] [place] [address] 8992 12 Apr, 2012 [facility] [place] [facility] [address] [id number] [place] [address] 4669 24 Apr, 2011 [facility] [place] [facility] [address] [id number] [place] [address]- 9691 21 Apr, 2011 [facility] [place] [facility] [address] [id number] [place] [address]- 5093 21 Apr, 2011 [facility] [place] [facility] [address] [id number] [place] [address] 14 Apr, 2011 [facility] [place] [facility] [address] [id number] [place] [address]- 3092 10 Apr, 2011 [facility] [place] [facility] [address] [id number] [place] [address]- 5275 06 Apr, 2011 [facility] [place] [facility] [address] [id number] [place] [address]- 2498 04 Apr, 2012 [facility] [place] [facility] [address] [id number] [place] [address]- 4889 31 Mar, 2012 [facility] [place] [facility] [address] [id number] [place] [address]- 0913 28 Mar, 2012 [facility] [place] [facility] [address] [id number] [place] [address]- 8673 27 Mar, 2012 [facility] [place] [facility] [address] [id number] [place] [address]- 9992 10 Mar, 2012 [facility] [place] [facility] [address] [id number] [place] [address]- 0692 08 Mar, 2012 [facility] [place] [facility] [address] [id number] [place] [address]- 0996 03 Mar, 2012 [facility] [place] [facility] [address] [id number] [place] [address]- 9800 20 Feb, 2012 [facility] [place] [facility] [address] [id number] [place] [address]- 2340 10 Feb, 2012 [facility] [place] [facility] [address] [id number] [place] [address]- 5699 Feb, [facility] [place] [facility] [address] [id number] [place] [address]379 Jan, [facility] [place] [facility] [address] [id number] [place] [address]35 Jan, [facility] [place] [facility] [address] [id number] [place] [address] 4088 Jan, [facility] [place] [facility] [address] [id number] [place] [address]- 8398 Jan, [facility] [place] [facility] [address] [id number] [place] [address] 7820 Jan, [facility] [place] [facility] [address] [id number] [place] [address] 9428 Jan, [facility] [place] [facility] [address] [id number] [place] [address]- 6162 Jan, [facility] [place] [facility] [address] [id number] [place] [address]- 7606 Jan, [facility] [place] [facility] [address] [id number] [place] [address] 95[address] December, [facility] [place] [facility] [address] [id number] [place] [address]- 9518 December, [facility] [place] [facility] [address] [id number] [place] [address]- 2966 December, [facility] [place] [facility] [address] [id number] [place] [address]- [address] December, [facility] [place] [facility] [address] [id number] [place] [address]- 6676 December, [facility] [place] [facility] [address] [id number] [place] [address]- 2033 December, [facility] [place] [facility] [address] [id number] [place] [address]- 2954 13 Nov, 2011 [facility] [address] [id number] [place] [address]- 9636 13 Nov, 2011 [facility] [place] [facility] [address] [id number] [place] [address]- 0857 13 Nov, 2011 [facility] [place] [facility] [address] [id number] [place] [address]- 7855 13 Nov, 2011 [facility] [place] [facility] [address] [id number] [place] [address]- 5118 12 Nov, 2011 [facility] [place] [facility] [address] [id number] [place] [address]- 2471 15 Oct, 2011 [facility] [address] [id number] [place] [address]- 9766 17 Sep, 2011 [facility] [address] [id number] [place] [address]- 5743 Aug, [facility] [address] [id number] [place] [address]- 5674 Aug, [facility] [address] [id number] [place] [address]- 0357 Aug, [facility] [place] [facility] [address] [id number] [place] [address]- 6945 Aug, [facility] [address] [id number] [place] [address]- 7205 Aug, [facility] [place] [facility] [address] [id number] [place] [address]- 1425 Jul, [facility] [place] [facility] [address] [id number] [place] [address]- 9794 Jul, [facility] [place] [facility] [address] [id number] [place] [address] 3344 28 Jun, 2011 [facility] [place] [facility] [address] [id number], [place] [address] Jun, [facility] [address] [facility] [id number], [place] [address] Jun, [facility] [address] [facility] [id number], [place] [address] May, [facility] [address] [facility] [id number], [place] [address] May, [facility] [address] [facility] [id number], [place] [address] Oct, [facility] [address] [facility] [id number] [place] [address] Oct, [facility] [address] [facility] [id number][place] [address] Jul, [facility] [address] [facility] [id number], [place] [address] Jul, 2010 [facility] [address] [facility] [id number], [place] [address] Jul, [facility] [address] [facility] [id number], [place] [address] Jul, [facility] [address] [facility] [id number], [place] [address] Jul, [facility] [address] [facility] [id number], [place] [address] Jun, [facility] [address] [facility] [id number], [place] [address] Jun, [facility] [address] [facility] [id number], [place] [address] Jun, [facility] [address] [facility] [id number], [place] [address] May, [facility] [address] [facility] [id number], [place] [address] Mar, IMMUNIZATIONS No Known Immunizations SOCIAL HISTORY Never Assessed REASON FOR VISIT EMR-[facility] PLAN OF CARE VITAL SIGNS MEDICATIONS Unknown [...]
--- OUTSIDE RECORDS SUMMARY | 2018-11-20 11:22 | XMS REPORT ---
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 [address]-02 10-325 MG Orally every 6 hrs December 25, 2014 1 tablet as needed Results No Known Results Summary Purpose eClinicalWorks Submission
--- OUTSIDE RECORDS SUMMARY | 2018-11-20 11:22 | XMS REPORT ---
Author Author LAURIE LYLE Organization e[employer] Address Unknown Phone Unavailable Care Team Providers Care Perinatology Physician Name Role Phone LAURIE LYLE Unavailable Allergies No Known Allergies Problems Problem Type Condition Code Onset Dates Condition Status Problem Diabetic neuropathy E11.40 Active Problem Arthritis M19.90 Active Problem Diabetes E11.9 Active Problem COPD (chronic obstructive pulmonary disease) J44.9 Active Medications Medication Code System Code Instructions Start Date End Date Status Dosage Metoprolol Tartrate [facility] 84223547699 100 Orally Twice a day 1 tablet amitriptyline [facility] [address]-19 25 mg Once a day Aug 29, 2014 take 1 tablet (25 mg) by oral route once daily at bedtime Results No Known Results Summary Purpose eClinicalWorks Submission
--- OUTSIDE RECORDS SUMMARY | 2018-11-20 11:23 | XMS REPORT ---
Author Author LAURIE LYLE Organization e[employer]Works Address Unknown Phone Unavailable Care Team Providers Care Dealer Relationship Manager Name Role Phone LAURIE LYLE CP Unavailable Allergies No Known Allergies Problems No Known Problems Medications No Known Medications Results No Known Results Summary Purpose eClinicalWorks Submission
--- OUTSIDE RECORDS SUMMARY | 2018-11-20 11:23 | XMS REPORT ---
Author Author LAURIE LYLE Organization e[employer]Works Address Unknown Phone Unavailable Care Team Providers Care Cemetery Keeper Name Role Phone LAURIE LYLE CP Unavailable Allergies No Known Allergies Problems No Known Problems Medications No Known Medications Results No Known Results Summary Purpose eClinicalWorks Submission
--- OUTSIDE RECORDS SUMMARY | 2018-11-20 11:23 | XMS REPORT ---
Author Author LAURIE LYLE Organization e[employer]Works Address Unknown Phone Unavailable Care Team Providers Care Physical Education Professor Name Role Phone LAURIE LYLE CP Unavailable Allergies No Known Allergies Problems No Known Problems Medications No Known Medications Results No Known Results Summary Purpose eClinicalWorks Submission
--- OUTSIDE RECORDS SUMMARY | 2018-11-20 11:23 | XMS REPORT ---
Author LAURIE Vieira [facility] eClinicalWorks Address Unknown Phone Unavailable Care Team Providers Care Position Classification Manager Name Role Phone LAURIE LYLE Unavailable Allergies, Adverse Reactions, Alerts Substance Reaction Event Type Tradjenta Info Not Available Drug Allergy Lisinopril-Hydrochlorothiazide angiodema Drug Allergy Metformin edema Drug Allergy Amlodipine cough Drug Allergy Problems Problem Type Condition Code Onset Dates Condition Status Assessment COPD (chronic obstructive pulmonary disease) J44.9 Active Problem Diabetic neuropathy E11.40 Active Problem Arthritis M19.90 Active Problem Diabetes E11.9 Active Assessment Diabetic neuropathy E11.40 Active Assessment Arthritis M19.90 Active Problem COPD (chronic obstructive pulmonary disease) J44.9 Active Assessment Diabetes E11.9 Active Medications Medication Code System Code Instructions Start Date End Date Status Dosage ProAir HFA [facility] [address]-40 108 (90 Base) MCG/ACT Inhalation every 4 hrs 2 puffs as needed Simvastatin [facility] [address]-72 20 mg November 29, 2013 1 tablet by Oral route 1 time per day Oxycodone-Acetaminophen [facility] [address]-79 10-325 MG Orally, must be seen for more refills every 6 hrs December 25, 2014 1 tablet as needed Breo Ellipta [facility] [id number] 0 INHALE ONCE DAILY Metoprolol Tartrate [facility] 95526542749 100 Orally Twice a day 1 tablet amitriptyline [facility] [address]-17 25 mg Once a day Aug 29, 2014 take 1 tablet (25 mg) by oral route once daily at bedtime Gabapentin [facility] [address]-11 300 MG Orally Three times a day TAKE ONE CAPSULE BY MOUTH THREE TIMES DAILY NEEDED FOR PAIN Lantus [facility] 57679978798 100 UNIT/ML INJECT 15 UNITS SUBCUTANEOUSLY ONCE DAILY Duragesic ND 0 50 mcg/hr October 31, 2014 1 PATCH by Topical route every 72 hours Citalopram Hydrobromide [facility] [address]-78 20 MG Orally Once a day 1 tablet Albuterol Sulfate [facility] [address]-42 (2.5 MG/3ML) 0.083% Inhalation Three times a day 3 ml Procedures Procedure Coding System Code Date MICROALBUMIN, SEMIQUANT CPT-4 04538 Aug 06, 2015 [facility] VISIT ESTABLISHED PATIENT CPT-4 G0467 Aug 06, 2015 GLYCATED HEMOGLOBIN TEST CPT-4 45731 Aug 06, 2015 Office Visit, Est Pt., Level 3 CPT-4 72493 Aug 06, 2015 Vital Signs Date/Time: Aug 06, 2015 Temperature 98.0 F Weight 204 lbs Height 60 in BMI 39.84 Index Blood Pressure Diastolic 90 mmHg Blood Pressure Systolic 142 mmHg Cardiac Monitoring Heart Rate 88 bpm Results Name Result Date Reference Range Unit Abnormality Flag A1C (IN HOUSE) ----A1C IN HOUSE 6.3 20150806 4.30 - 5.6 % ----Previous A1c 6.5 [id number] ----Lot # [id number] ----Exp date 20150806 MICROALBUMIN, URINE (IN HOUSE) ----CRE 300 mg/dl [id number] ----ALB 30 mg/l [id number] ----A:C (IN HOUSE) <30 mg/g [id number] ----Clarity clear 20150806 ----Color yellow [id number] ----Lot # [id number] ----Exp date [id number] ----MICROALBUMIN normal [id number] Summary Purpose eClinicalWorks Submission
--- OUTSIDE RECORDS SUMMARY | 2018-11-20 11:23 | XMS REPORT ---
Author Author LAURIE LYLE Organization eClinicalWorks Address Unknown Phone Unavailable Care Team Providers Care Beverage Inspection Machine Tender Name Role Phone LAURIE LYLE CP Unavailable Allergies No Known Allergies Problems No Known Problems Medications Medication Code System Code Instructions Start Date End Date Status Dosage Duragesic NDC 0 50 mcg/hr October 31, 2014 1 PATCH by Topical route every 72 hours Results No Known Results Summary Purpose eClinicalWorks Submission
--- OUTSIDE RECORDS SUMMARY | 2018-11-20 11:23 | XMS REPORT ---
Author Author LAURIE LYLE Organization eClinicalWorks Address Unknown Phone Unavailable Care Team Providers Care Tumblers Supervisor Name Role Phone LAURIE LYEL CP Unavailable Allergies No Known Allergies Problems No Known Problems Medications No Known Medications Results No Known Results Summary Purpose eClinicalWorks Submission
--- OUTSIDE RECORDS SUMMARY | 2018-11-20 11:23 | XMS REPORT ---
Author Author LAURIE LYLE Organization eClinicalWorks Address Unknown Phone Unavailable Care Team Providers Care Pantograph Operator Name Role Phone LAURIE LYLE Unavailable Allergies No Known Allergies Problems Problem Type Condition Code Onset Dates Condition Status Problem Diabetic neuropathy E11.40 Active Problem Arthritis M19.90 Active Problem Diabetes E11.9 Active Problem COPD (chronic obstructive pulmonary disease) J44.9 Active Assessment Arthritis M19.90 Active Medications No Known Medications Results No Known Results Summary Purpose eClinicalWorks Submission
--- OUTSIDE RECORDS SUMMARY | 2018-11-20 11:23 | XMS REPORT ---
Author Author LAURIE LYLE Organization eClinicalWorks Address Unknown Phone Unavailable Care Team Providers Care Splitting Machine Tender Name Role Phone LAURIE LYLE CP Unavailable Allergies No Known Allergies Problems Problem Type Condition Code Onset Dates Condition Status Problem Diabetic neuropathy E11.40 Active Problem Arthritis M19.90 Active Problem Diabetes E11.9 Active Problem COPD (chronic obstructive pulmonary disease) J44.9 Active Medications No Known Medications Results No Known Results Summary Purpose eClinicalWorks Submission
--- OUTSIDE RECORDS SUMMARY | 2018-11-20 11:23 | XMS REPORT ---
Author Author LAURIE LYLE Organization eClinicalWorks Address Unknown Phone Unavailable Care Team Providers Care Precision Devices Inspector/Tester Name Role Phone LAURIE LYLE CP Unavailable Allergies No Known Allergies Problems No Known Problems Medications No Known Medications Results No Known Results Summary Purpose eClinicalWorks Submission
--- OUTSIDE RECORDS SUMMARY | 2018-11-20 11:23 | XMS REPORT ---
Author Author LAURIE LYLE [facility] eClinicalWorks Address Unknown Phone Unavailable Care Team Providers Care Veterinary Manager Name Role Phone LAURIE LYLE CP Unavailable Allergies No Known Allergies Problems No Known Problems Medications Medication Code System Code Instructions Start Date End Date Status Dosage Metoprolol Tartrate [facility] [id number] 100 Orally Twice a day 1 tablet Citalopram Hydrobromide [facility] [address]-05 20 MG Orally Once a day 1 tablet Results No Known Results Summary Purpose eClinicalWorks Submission
--- OUTSIDE RECORDS SUMMARY | 2018-11-20 11:23 | XMS REPORT ---
Author Author LAURIE LYLE Organization eClinicalWorks Address Unknown Phone Unavailable Care Team Providers Care Office Auditor Name Role Phone LAURIE LYLE CP Unavailable Allergies No Known Allergies Problems Problem Type Condition Code Onset Dates Condition Status Problem Diabetic neuropathy E11.40 Active Problem Arthritis M19.90 Active Problem Diabetes E11.9 Active Problem COPD (chronic obstructive pulmonary disease) J44.9 Active Medications No Known Medications Results No Known Results Summary Purpose eClinicalWorks Submission
--- OUTSIDE RECORDS SUMMARY | 2018-11-20 11:23 | XMS REPORT ---
Author Author LAURIE LYLE Organization eClinicalWorks Address Unknown Phone Unavailable Care Team Providers Care Wood Cabinetmaker Name Role Phone LAURIE LYLE CP Unavailable Allergies No Known Allergies Problems No Known Problems Medications Medication Code System Code Instructions Start Date End Date Status Dosage Lantus [facility] [address]-15 100 UNIT/ML Subcutaneous Once a day INJECT 15 UNITS SUBCUTANEOUSLY ONCE DAILY Results No Known Results Summary Purpose eClinicalWorks Submission
--- OUTSIDE RECORDS SUMMARY | 2018-11-20 11:23 | XMS REPORT ---
Author Author LAURIE LYLE Organization eClinicalWorks Address Unknown Phone Unavailable Care Team Providers Care An Employee Sponsor Or Advocate And Name Role Phone LAURIE LYLE CP Unavailable Allergies No Known Allergies Problems No Known Problems Medications Medication Code System Code Instructions Start Date End Date Status Dosage amitriptyline [facility] [address]-62 25 mg Once a day Aug 29, 2014 take 1 tablet (25 mg) by oral route once daily at bedtime Gabapentin [facility] [address]-91 100 MG Orally Three times a day TAKE ONE CAPSULE BY MOUTH THREE TIMES DAILY NEEDED FOR PAIN Results No Known Results Summary Purpose eClinicalWorks Submission
--- OUTSIDE RECORDS SUMMARY | 2018-11-20 11:23 | XMS REPORT ---
Author Author LAURIE LYLE Organization eClinicalWorks Address Unknown Phone Unavailable Care Team Providers Care Biology Professor Name Role Phone LAURIE LYLE CP Unavailable Allergies No Known Allergies Problems No Known Problems Medications No Known Medications Results No Known Results Summary Purpose eClinicalWorks Submission
--- OUTSIDE RECORDS SUMMARY | 2018-11-20 11:23 | XMS REPORT ---
Author Author LAURIE LYLE Organization eClinicalWorks Address Unknown Phone Unavailable Care Team Providers Care Photolithographic Stripper Name Role Phone LAURIE LYLE CP Unavailable Allergies No Known Allergies Problems No Known Problems Medications No Known Medications Results No Known Results Summary Purpose eClinicalWorks Submission
--- OUTSIDE RECORDS SUMMARY | 2018-11-20 11:23 | XMS REPORT ---
Author Author LAURIE LYLE Organization eClinicalWorks Address Unknown Phone Unavailable Care Team Providers Care Professor Of Education Name Role Phone LAURIE LYLE CP Unavailable Allergies No Known Allergies Problems No Known Problems Medications Medication Code System Code Instructions Start Date End Date Status Dosage Oxycodone-Acetaminophen [facility] [address]-18 10-325 MG Orally, must be seen for more refills every 6 hrs December 25, 2014 1 tablet as needed Results No Known Results Summary Purpose eClinicalWorks Submission
--- OUTSIDE RECORDS SUMMARY | 2018-11-20 11:23 | XMS REPORT ---
Author Author LAURIE LYLE Organization eClinicalWorks Address Unknown Phone Unavailable Care Team Providers Care Animation Producer Name Role Phone LAURIE LYLE Unavailable Allergies [...] PATCH by Topical route every 72 hours Oxycodone-Acetaminophen [facility] [address]-72 10-325 MG Orally, every 6 hrs December 25, 2014 1 tablet as needed Results No Known Results Summary Purpose eClinicalWorks Submission
--- OUTSIDE RECORDS SUMMARY | 2018-11-20 11:25 | XMS REPORT | Continuity of Care Document ---
Author Author Formerly [facility] [place] Address Unknown Phone Unavailable Allergies Active Description Code Type Severity Reaction Onset Reported/Identified Relationship to Patient Clinical Status Yes Sulfa (Sulfonamide Antibiotics) [id number] Drug Allergy Unknown N/A 2006 Yes lisinopril [id number] Drug Allergy Unknown N/A 07/26/2014 Yes metformin [id number] Drug Allergy Unknown N/A 07/26/2014 Medications There is no data. Problems Date Dx Coded Attending Type Code Diagnosis Diagnosed By 02/21/2010 LAURIE LYLE MD 110.1 ONYCHOMYCOSIS 02/21/2010 LAURIE LYLE MD 250.00 DIABETES II CONTROLLED 02/21/2010 LAURIE LYLE MD 311 DEPRESSION SEASONAL PATTERN 02/21/2010 LAURIE LYLE MD 401.0 Hypertension Malignant Essential 02/21/2010 LAURIE LYLE MD 496 CHRONIC OBSTRUCTIVE PULMONARY DISEASE 02/21/2010 LAURIE LYLE MD 110.1 ONYCHOMYCOSIS 02/21/2010 LAURIE LYLE MD 250.00 DIABETES II CONTROLLED 02/21/2010 LAURIE LYLE MD 311 DEPRESSION SEASONAL PATTERN 02/21/2010 LAURIE LYLE MD 401.0 Hypertension Malignant Essential 02/21/2010 LAURIE LYLE MD CHRONIC OBSTRUCTIVE PULMONARY DISEASE 02/21/2010 LAURIE LYLE MD 110.1 ONYCHOMYCOSIS 02/21/2010 LAURIE LYLE MD 250.00 DIABETES II CONTROLLED 02/21/2010 LAURIE LYLE MD 311 DEPRESSION SEASONAL PATTERN 02/21/2010 LAURIE LYLE MD 401.0 Hypertension Malignant Essential 02/21/2010 LAURIE LYLE MD 49Jose CHRONIC OBSTRUCTIVE PULMONARY DISEASE 02/21/2010 LAURIE LYLE MD 110.1 ONYCHOMYCOSIS 02/21/2010 LAURIE LYLE MD 250.00 DIABETES II CONTROLLED 02/21/2010 LAURIE LYLE MD 311 DEPRESSION SEASONAL PATTERN 02/21/2010 LAURIE LYLE MD 401.0 Hypertension Malignant Essential 02/21/2010 VALDO PATRICK, LAURIE 496 CHRONIC OBSTRUCTIVE PULMONARY DISEASE 02/21/2010 VALDO PATRICK, LAURIE 110.1 ONYCHOMYCOSIS 02/21/2010 VALDO PATRICK, LAURIE 250.00 DIABETES II CONTROLLED 02/21/2010 VALDO PATRICK, LAURIE 311 DEPRESSION SEASONAL PATTERN 02/21/2010 VALDO PATRICK, LAURIE 401.0 Hypertension Malignant Essential 02/21/2010 VALDO PATRICK, LAURIE 496 CHRONIC OBSTRUCTIVE PULMONARY DISEASE 02/21/2010 VALDO PATRICK, LAURIE 110.1 ONYCHOMYCOSIS 02/21/2010 VALDO PATRICK, LAURIE 250.00 DIABETES II CONTROLLED 02/21/2010 VALDO PATRICK, LAURIE 311 DEPRESSION SEASONAL PATTERN 02/21/2010 VALDO PATRICK, LAURIE 401.0 Hypertension Malignant Essential 02/21/2010 VALDO PATRICK, LAURIE 496 CHRONIC OBSTRUCTIVE PULMONARY DISEASE 02/21/2010 VALDO PATRICK, LAURIE 110.1 ONYCHOMYCOSIS 02/21/2010 VALDO PATRICK, LAURIE 250.00 DIABETES II CONTROLLED 02/21/2010 VALDO PATRICK, LAURIE 311 DEPRESSION SEASONAL PATTERN 02/21/2010 VALDO PATRICK, LAURIE 401.0 Hypertension Malignant Essential 02/21/2010 VALDO PATRICK, LAURIE 496 CHRONIC OBSTRUCTIVE PULMONARY DISEASE 02/21/2010 VALDO PATRICK, LAURIE 110.1 ONYCHOMYCOSIS 02/21/2010 VALDO PATRICK, LAURIE 250.00 DIABETES II CONTROLLED 02/21/2010 VALDO PATRICK, LAURIE 311 DEPRESSION SEASONAL PATTERN 02/21/2010 VALDO PATRICK, LAURIE 401.0 Hypertension Malignant Essential 02/21/2010 VALDO PATRICK, LAURIE 496 CHRONIC OBSTRUCTIVE PULMONARY DISEASE 02/21/2010 VALDO PATRICK, LAURIE 110.1 ONYCHOMYCOSIS 02/21/2010 VALDO PATRICK, LAURIE 250.00 DIABETES II CONTROLLED 02/21/2010 VALDO PATRICK, LAURIE 311 DEPRESSION SEASONAL PATTERN 02/21/2010 VALDO PATRICK, LAURIE 401.0 Hypertension Malignant Essential 02/21/2010 VALDO PATRICK, LAURIE 496 CHRONIC OBSTRUCTIVE PULMONARY DISEASE 02/21/2010 VALDO PATRICK, LAURIE 110.1 ONYCHOMYCOSIS 02/21/2010 VALDO PATRICK, LAURIE 250.00 DIABETES II CONTROLLED 02/21/2010 VALDO PATRICK, LAURIE 311 DEPRESSION SEASONAL PATTERN 02/21/2010 LAURIE LYLE MD 401.0 Hypertension Malignant Essential 02/21/2010 LAURIE LYLE MD 496 CHRONIC OBSTRUCTIVE PULMONARY DISEASE 02/21/2010 LAURIE LYLE MD 110.1 ONYCHOMYCOSIS 02/21/2010 LAURIE LYLE MD 250.00 DIABETES II CONTROLLED 02/21/2010 LAURIE LYLE MD 311 DEPRESSION SEASONAL PATTERN 02/21/2010 LAURIE LYLE MD 401.0 Hypertension Malignant Essential 02/21/2010 LAURIE LYLE MD 49Jose CHRONIC OBSTRUCTIVE PULMONARY DISEASE 02/21/2010 VINCENT DO RADHA K 110.1 ONYCHOMYCOSIS 02/21/2010 KAUR DO RADHA K 250.00 DIABETES II CONTROLLED 02/21/2010 KAUR DO RADHA K 311 DEPRESSION SEASONAL PATTERN 02/21/2010 VINCENT WINKLER RADHA K 401.0 Hypertension Malignant Essential 02/21/2010 RADHA KAUR DO K 496 CHRONIC OBSTRUCTIVE PULMONARY DISEASE 02/21/2010 LAURIE LYLE MD 110.1 ONYCHOMYCOSIS 02/21/2010 LAURIE LYLE MD 250.00 DIABETES II CONTROLLED 02/21/2010 LAURIE LYLE MD 311 DEPRESSION SEASONAL PATTERN 02/21/2010 LAURIE LYLE MD 401.0 Hypertension Malignant Essential 02/21/2010 LAURIE LYLE MD 49Jose CHRONIC OBSTRUCTIVE PULMONARY DISEASE 02/21/2010 LAURIE LYLE MD 110.1 ONYCHOMYCOSIS 02/21/2010 LAURIE LYLE MD 250.00 DIABETES II CONTROLLED 02/21/2010 LAURIE LYLE MD 311 DEPRESSION SEASONAL PATTERN 02/21/2010 LAURIE LYLE MD 401.0 Hypertension Malignant Essential 02/21/2010 LAURIE LYLE MD 49Jose CHRONIC OBSTRUCTIVE PULMONARY DISEASE 02/21/2010 LAURIE LYLE MD 110.1 ONYCHOMYCOSIS 02/21/2010 LAURIE LYLE MD 250.00 DIABETES II CONTROLLED 02/21/2010 LAURIE LYLE MD 311 DEPRESSION SEASONAL PATTERN 02/21/2010 LAURIE LYLE MD 401.0 Hypertension Malignant Essential 02/21/2010 LAURIE LYLE MD 49Jose CHRONIC OBSTRUCTIVE PULMONARY DISEASE 02/21/2010 KAUR DO RADHA K 110.1 ONYCHOMYCOSIS 02/21/2010 KAUR DO RADHA K 250.00 DIABETES II CONTROLLED 02/21/2010 VINCENT DO RADHA K 311 DEPRESSION SEASONAL PATTERN 02/21/2010 KAUR DO, RADHA K 401.0 Hypertension Malignant Essential 02/21/2010 KAUR DO, RADHA K 496 CHRONIC OBSTRUCTIVE PULMONARY DISEASE 02/21/2010 LAURIE LYLE MD 110.1 ONYCHOMYCOSIS 02/21/2010 LAURIE LYLE MD 250.00 DIABETES II CONTROLLED 02/21/2010 LAURIE LYLE MD 311 DEPRESSION SEASONAL PATTERN 02/21/2010 LAURIE LYLE MD 401.0 Hypertension Malignant Essential 02/21/2010 LAURIE LYLE MD 496 CHRONIC OBSTRUCTIVE PULMONARY DISEASE 02/21/2010 LAURIE LYLE MD 110.1 ONYCHOMYCOSIS 02/21/2010 LAURIE LYLE MD 250.00 DIABETES II CONTROLLED 02/21/2010 LAURIE LYLE MD 311 DEPRESSION SEASONAL PATTERN 02/21/2010 LAURIE LYLE MD 401.0 Hypertension Malignant Essential 02/21/2010 LAURIE LYLE MD 49Jose CHRONIC OBSTRUCTIVE PULMONARY DISEASE 02/21/2010 LAURIE LYLE MD 110.1 ONYCHOMYCOSIS 02/21/2010 LAURIE LYLE MD 250.00 DIABETES II CONTROLLED 02/21/2010 LAURIE LYLE MD 311 DEPRESSION SEASONAL PATTERN 02/21/2010 LAURIE LYLE MD 401.0 Hypertension Malignant Essential 02/21/2010 LAURIE LYLE MD 49Jose CHRONIC OBSTRUCTIVE PULMONARY DISEASE 02/21/2010 LAURIE LYLE MD 110.1 ONYCHOMYCOSIS 02/21/2010 LAURIE LYLE MD 250.00 DIABETES II CONTROLLED 02/21/2010 LAURIE LYLE MD 311 DEPRESSION SEASONAL PATTERN 02/21/2010 LAURIE LYLE MD 401.0 Hypertension Malignant Essential 02/21/2010 LAURIE LYLE MD 49Jose CHRONIC OBSTRUCTIVE PULMONARY DISEASE 02/21/2010 KAUR DO, RADHA K 110.1 ONYCHOMYCOSIS 02/21/2010 KAUR DO, RADHA K 250.00 DIABETES II CONTROLLED 02/21/2010 KAUR DO RADHA K 311 DEPRESSION SEASONAL PATTERN 02/21/2010 KAUR DO RADHA K 401.0 Hypertension Malignant Essential 02/21/2010 VINCENT WINKLER, RADHA K 496 CHRONIC OBSTRUCTIVE PULMONARY DISEASE 02/21/2010 LAURIE LYLE MD 110.1 ONYCHOMYCOSIS 02/21/2010 LAURIE LYLE MD 250.00 DIABETES II CONTROLLED 02/21/2010 LAURIE LYLE MD 311 DEPRESSION SEASONAL PATTERN 02/21/2010 VALDO PATRICK, LAURIE 401.0 Hypertension Malignant Essential 02/21/2010 VALDO PATRICK, LAURIE 496 CHRONIC OBSTRUCTIVE PULMONARY DISEASE 02/21/2010 VALDO PATRICK, LAURIE 110.1 ONYCHOMYCOSIS 02/21/2010 VALDO PATRICK, LAURIE 250.00 DIABETES II CONTROLLED 02/21/2010 VALDO PATRICK, LAURIE 311 DEPRESSION SEASONAL PATTERN 02/21/2010 VALDO PATRICK, LAURIE 401.0 Hypertension Malignant Essential 02/21/2010 VALDO PATRICK, LAURIE 496 CHRONIC OBSTRUCTIVE PULMONARY DISEASE 04/07/2010 VALDO PATRICK, LAURIE 786.50 Chest Pain 04/07/2010 VALDO PATRICK, LAURIE 786.50 Chest Pain 04/07/2010 VALDO PATRICK, LAURIE 786.50 Chest Pain 04/07/2010 VALDO PATRICK, LAURIE 786.50 Chest Pain 04/07/2010 VALDO PATRICK, LAURIE 786.50 Chest Pain 04/07/2010 VALDO PATRICK, LAURIE 786.50 Chest Pain 04/07/2010 VALDO PATRICK, LAURIE 786.50 Chest Pain 04/07/2010 VALDO PATRICK, LAURIE 786.50 Chest Pain 04/07/2010 VALDO PATRICK, LAURIE 786.50 Chest Pain 04/07/2010 VALDO PATRICK, LAURIE 786.50 Chest Pain 04/07/2010 VALDO PATRICK, LAURIE 786.50 Chest Pain 04/07/2010 VINCENT WINKLER, RADHA K 786.50 Chest Pain 04/07/2010 VALDO PATRICK, LAURIE 786.50 Chest Pain 04/07/2010 VALDO PATRICK, LARUIE 786.50 Chest Pain 04/07/2010 VALDO PATRICK, LAURIE 786.50 Chest Pain 04/07/2010 KAUR DO, RADHA K 786.50 Chest Pain 04/07/2010 VALDO PATRICK, LAURIE 786.50 Chest Pain 04/07/2010 VALDO PATRICK, LAURIE 786.50 Chest Pain 04/07/2010 VALDO PATRICK, LAURIE 786.50 Chest Pain 04/07/2010 VALDO PATRICK, LAURIE 786.50 Chest Pain 04/07/2010 KAUR , RADHA K 786.50 Chest Pain 04/07/2010 VALDO PATRICK, LAURIE 786.50 Chest Pain 04/07/2010 VALDO PATRICK, LAURIE 786.50 Chest Pain 04/16/2010 VALDO PATRICK, LAURIE 414.01 CAD 04/16/2010 VALDO PATRICK, LAURIE 414.01 CAD 04/16/2010 VALDO PATRICK, LAURIE 414.01 CAD 04/16/2010 VALDO PATRICK, LAURIE 414.01 CAD 04/16/2010 VALDO PATRICK, LAURIE 414.01 CAD 04/16/2010 VALDO PATRICK, LAURIE 414.01 CAD 04/16/2010 VALDO PATRICK, LAURIE 414.01 CAD 04/16/2010 VALDO PATRICK, LAURIE 414.01 CAD 04/16/2010 VALDO PATRICK, LAURIE 414.01 CAD 04/16/2010 VALDO PATRICK, LAURIE 414.01 CAD 04/16/2010 VALDO PATRICK, LAURIE 414.01 CAD 04/16/2010 RADHA KAUR DO 414.01 CAD 04/16/2010 VALDO PATRICK, LAURIE 414.01 CAD 04/16/2010 VALDO PATRICK, LAURIE 414.01 CAD 04/16/2010 VALDO PATRICK, LAURIE 414.01 CAD 04/16/2010 RADHA KAUR DO 414.01 CAD 04/16/2010 VALDO PATRICK, LAURIE 414.01 CAD 04/16/2010 VALDO PTARICK, LAURIE 414.01 CAD 04/16/2010 VALDO PATRICK, LAURIE 414.01 CAD 04/16/2010 VALDO PATRICK, LAURIE 414.01 CAD 04/16/2010 RADHA KAUR DO 414.01 CAD 04/16/2010 VALDO PATRICK, LAURIE 414.01 CAD 04/16/2010 VALDO PATRICK, LAURIE 414.01 CAD 07/25/2010 VALDO PATRICK, LAURIE V03.82 Pcv7 Pcv13 Pcv23, Streptococcus Pneumoniae [pneumococcus] 07/25/2010 VALDO PATRICK, LAURIE V03.82 Pcv7 Pcv13 Pcv23, Streptococcus Pneumoniae [pneumococcus] 07/25/2010 VALDO PATRICK, LAURIE V03.82 Pcv7 Pcv13 Pcv23, Streptococcus Pneumoniae [pneumococcus] 07/25/2010 VALDO PATRICK, LAURIE V03.82 Pcv7 Pcv13 Pcv23, Streptococcus Pneumoniae [pneumococcus] 07/25/2010 VALDO PATRICK, LAURIE V03.82 Pcv7 Pcv13 Pcv23, Streptococcus Pneumoniae [pneumococcus] 07/25/2010 VALDO PATRICK, LAURIE V03.82 Pcv7 Pcv13 Pcv23, Streptococcus Pneumoniae [pneumococcus] 07/25/2010 LAURIE LYLE MD V03.82 Pcv7 Pcv13 Pcv23, Streptococcus Pneumoniae [pneumococcus] 07/25/2010 VALDO PATRICK, LAURIE V03.82 Pcv7 Pcv13 Pcv23, Streptococcus Pneumoniae [pneumococcus] 07/25/2010 LAURIE LYLE MD V03.82 Pcv7 Pcv13 Pcv23, Streptococcus Pneumoniae [pneumococcus] 07/25/2010 LAURIE LYLE MD V03.82 Pcv7 Pcv13 Pcv23, Streptococcus Pneumoniae [pneumococcus] 07/25/2010 LAURIE LYLE MD V03.82 Pcv7 Pcv13 Pcv23, Streptococcus Pneumoniae [pneumococcus] 07/25/2010 KAUR DO, RADHA Walsh V03.82 Pcv7 Pcv13 Pcv23, Streptococcus Pneumoniae [pneumococcus] 07/25/2010 LAURIE LYLE MD V03.82 Pcv7 Pcv13 Pcv23, Streptococcus Pneumoniae [pneumococcus] 07/25/2010 LAURIE LYLE MD V03.82 Pcv7 Pcv13 Pcv23, Streptococcus Pneumoniae [pneumococcus] 07/25/2010 LAURIE LYLE MD V03.82 Pcv7 Pcv13 Pcv23, Streptococcus Pneumoniae [pneumococcus] 07/25/2010 KAUR , RADHA Walsh V03.82 Pcv7 Pcv13 Pcv23, Streptococcus Pneumoniae [pneumococcus] 07/25/2010 LAURIE LYLE MD V03.82 Pcv7 Pcv13 Pcv23, Streptococcus Pneumoniae [pneumococcus] 07/25/2010 LAURIE LYLE MD V03.82 Pcv7 Pcv13 Pcv23, Streptococcus Pneumoniae [pneumococcus] 07/25/2010 LAURIE LYLE MD V03.82 Pcv7 Pcv13 Pcv23, Streptococcus Pneumoniae [pneumococcus] 07/25/2010 LAURIE LYLE MD V03.82 Pcv7 Pcv13 Pcv23, Streptococcus Pneumoniae [pneumococcus] 07/25/2010 KAUR DO, RADHA Walsh V03.82 Pcv7 Pcv13 Pcv23, Streptococcus Pneumoniae [pneumococcus] 07/25/2010 LAURIE LYLE MD V03.82 Pcv7 Pcv13 Pcv23, Streptococcus Pneumoniae [pneumococcus] 07/25/2010 LAURIE LYLE MD V03.82 Pcv7 Pcv13 Pcv23, Streptococcus Pneumoniae [pneumococcus] 07/28/2010 LAURIE LYLE MD 401.9 UNSPECIFIED ESSENTIAL HYPERTENSION 07/28/2010 LAURIE LYLE MD 401.9 UNSPECIFIED ESSENTIAL HYPERTENSION 07/28/2010 VALDO PATRICK, LAURIE 401.9 UNSPECIFIED ESSENTIAL HYPERTENSION 07/28/2010 VALDO PATRICK, LAURIE 401.9 UNSPECIFIED ESSENTIAL HYPERTENSION 07/28/2010 VALDO PATRICK, LAURIE 401.9 UNSPECIFIED ESSENTIAL HYPERTENSION 07/28/2010 VALDO PATRICK, LAURIE 401.9 UNSPECIFIED ESSENTIAL HYPERTENSION 07/28/2010 VALDO PATRICK, LAURIE 401.9 UNSPECIFIED ESSENTIAL HYPERTENSION 07/28/2010 VALDO PATRICK, LAURIE 401.9 UNSPECIFIED ESSENTIAL HYPERTENSION 07/28/2010 VALDO PATRICK, LAURIE 401.9 UNSPECIFIED ESSENTIAL HYPERTENSION 07/28/2010 VALDO PATRICK, LAURIE 401.9 UNSPECIFIED ESSENTIAL HYPERTENSION 07/28/2010 VALDO PATRICK, LAURIE 401.9 UNSPECIFIED ESSENTIAL HYPERTENSION 07/28/2010 RADHA KAUR DO 401.9 UNSPECIFIED ESSENTIAL HYPERTENSION 07/28/2010 VALDO PATRICK, LAURIE 401.9 UNSPECIFIED ESSENTIAL HYPERTENSION 07/28/2010 VALDO PATRICK, LAURIE 401.9 UNSPECIFIED ESSENTIAL HYPERTENSION 07/28/2010 VALDO PATRICK, LAURIE 401.9 UNSPECIFIED ESSENTIAL HYPERTENSION 07/28/2010 RADHA KAUR DO 401.9 UNSPECIFIED ESSENTIAL HYPERTENSION 07/28/2010 VALDO PATRICK, LAURIE 401.9 UNSPECIFIED ESSENTIAL HYPERTENSION 07/28/2010 VALDO PATRICK, LAURIE 401.9 UNSPECIFIED ESSENTIAL HYPERTENSION 07/28/2010 VALDO PATRICK, LAURIE 401.9 UNSPECIFIED ESSENTIAL HYPERTENSION 07/28/2010 VALDO PATRICK, LAURIE 401.9 UNSPECIFIED ESSENTIAL HYPERTENSION 07/28/2010 RADHA KAUR DO 401.9 UNSPECIFIED ESSENTIAL HYPERTENSION 07/28/2010 VALDO PATRICK, LAURIE 401.9 UNSPECIFIED ESSENTIAL HYPERTENSION 07/28/2010 VALDO PATRICK, LAURIE 401.9 UNSPECIFIED ESSENTIAL HYPERTENSION 08/28/2010 VALDO PATRICK, LAURIE Marquez1.21 OBSTRUCTIVE CHRONIC BRONCHITIS WITH (ACUTE) EXACERBATION 08/28/2010 VALDO PATRICK, LAURIE Marquez1.21 OBSTRUCTIVE CHRONIC BRONCHITIS WITH (ACUTE) EXACERBATION 08/28/2010 VALDO PATRICK, LAURIE Marquez1.21 OBSTRUCTIVE CHRONIC BRONCHITIS WITH (ACUTE) EXACERBATION 08/28/2010 VALDO PATRICK, LAURIE Marquez1.21 OBSTRUCTIVE CHRONIC BRONCHITIS WITH (ACUTE) EXACERBATION 08/28/2010 VALDO PATRICK, LAURIE Marquez1.21 OBSTRUCTIVE CHRONIC BRONCHITIS WITH (ACUTE) EXACERBATION 08/28/2010 VALDO PATRICK, LAURIE 491.21 OBSTRUCTIVE CHRONIC BRONCHITIS WITH (ACUTE) EXACERBATION 08/28/2010 VALDO PATRICK, LAURIE 491.21 OBSTRUCTIVE CHRONIC BRONCHITIS WITH (ACUTE) EXACERBATION 08/28/2010 VALDO PATRICK, LAURIE 491.21 OBSTRUCTIVE CHRONIC BRONCHITIS WITH (ACUTE) EXACERBATION 08/28/2010 VALDO PATRICK, LAURIE 491.21 OBSTRUCTIVE CHRONIC BRONCHITIS WITH (ACUTE) EXACERBATION 08/28/2010 VALDO PATRICK, LAURIE Marquez1.21 OBSTRUCTIVE CHRONIC BRONCHITIS WITH (ACUTE) EXACERBATION 08/28/2010 VALDO PATRICK, LAURIE Marquez1.21 OBSTRUCTIVE CHRONIC BRONCHITIS WITH (ACUTE) EXACERBATION 08/28/2010 RADHA KAUR DO 491.21 OBSTRUCTIVE CHRONIC BRONCHITIS WITH (ACUTE) EXACERBATION 08/28/2010 LAURIE LYLE MD1.21 OBSTRUCTIVE CHRONIC BRONCHITIS WITH (ACUTE) EXACERBATION 08/28/2010 VALDO PATRICK, LAURIE 491.21 OBSTRUCTIVE CHRONIC BRONCHITIS WITH (ACUTE) EXACERBATION 08/28/2010 VALDO PATRICK, LAURIE 491.21 OBSTRUCTIVE CHRONIC BRONCHITIS WITH (ACUTE) EXACERBATION 08/28/2010 RADHA KAUR DO 491.21 OBSTRUCTIVE CHRONIC BRONCHITIS WITH (ACUTE) EXACERBATION 08/28/2010 VALDO PATRICK, LAURIE 491.21 OBSTRUCTIVE CHRONIC BRONCHITIS WITH (ACUTE) EXACERBATION 08/28/2010 LAURIE LYLE MD1.21 OBSTRUCTIVE CHRONIC BRONCHITIS WITH (ACUTE) EXACERBATION 08/28/2010 LAURIE LYLE MD 491.21 OBSTRUCTIVE CHRONIC BRONCHITIS WITH (ACUTE) EXACERBATION 08/28/2010 LAURIE LYLE MD 491.21 OBSTRUCTIVE CHRONIC BRONCHITIS WITH (ACUTE) EXACERBATION 08/28/2010 RADHA KAUR DO 491.21 OBSTRUCTIVE CHRONIC BRONCHITIS WITH (ACUTE) EXACERBATION 08/28/2010 LAURIE LYLE MD1.21 OBSTRUCTIVE CHRONIC BRONCHITIS WITH (ACUTE) EXACERBATION 08/28/2010 LAURIE LYLE MD1.21 OBSTRUCTIVE CHRONIC BRONCHITIS WITH (ACUTE) EXACERBATION 09/27/2010 Ot 845.00 09/27/2010 Ot 959.7 09/27/2010 Ot E000.8 09/27/2010 Ot E849.0 09/27/2010 Ot E927.8 10/21/2010 LAURIE LYLE MD 278.00 OBESITY UNSPECIFIED 10/21/2010 LAURIE LYLE MD 278.00 OBESITY UNSPECIFIED 10/21/2010 VALDO PATRICK, LAURIE 278.00 OBESITY UNSPECIFIED 10/21/2010 VALDO PATRICK, LAURIE 278.00 OBESITY UNSPECIFIED 10/21/2010 VALDO PATRICK, LAURIE 278.00 OBESITY UNSPECIFIED 10/21/2010 VALDO PATRICK, LAURIE 278.00 OBESITY UNSPECIFIED 10/21/2010 VALDO PATRICK, LAURIE 278.00 OBESITY UNSPECIFIED 10/21/2010 VALDO PATRICK, LAURIE 278.00 OBESITY UNSPECIFIED 10/21/2010 VALDO PATRICK, LAURIE 278.00 OBESITY UNSPECIFIED 10/21/2010 VALDO PATRICK, LAURIE 278.00 OBESITY UNSPECIFIED 10/21/2010 VALDO PATRICK, LAURIE 278.00 OBESITY UNSPECIFIED 10/21/2010 RADHA KAUR DO 278.00 OBESITY UNSPECIFIED 10/21/2010 VALDO PATRICK, LAURIE 278.00 OBESITY UNSPECIFIED 10/21/2010 VALDO PATRICK, LAURIE 278.00 OBESITY UNSPECIFIED 10/21/2010 VALDO PATRICK, LAURIE 278.00 OBESITY UNSPECIFIED 10/21/2010 KAUR RADHA WINKLER 278.00 OBESITY UNSPECIFIED 10/21/2010 VALDO PATRICK, LAURIE 278.00 OBESITY UNSPECIFIED 10/21/2010 VALDO PATRICK, LAURIE 278.00 OBESITY UNSPECIFIED 10/21/2010 VALDO PATRICK, LAURIE 278.00 OBESITY UNSPECIFIED 10/21/2010 VALDO PATRICK, LAURIE 278.00 OBESITY UNSPECIFIED 10/21/2010 RADHA KAUR DO 278.00 OBESITY UNSPECIFIED 10/21/2010 VALDO PARTICK, LAURIE 278.00 OBESITY UNSPECIFIED 10/21/2010 VALDO PATRICK, LAURIE 278.00 OBESITY UNSPECIFIED 11/13/2010 LAURIE LYLE MD.2 NEURALGIA NEURITIS AND RADICULITIS UNSPECIFIED 11/13/2010 LAURIE LYLE MD.2 NEURALGIA NEURITIS AND RADICULITIS UNSPECIFIED 11/13/2010 LAURIE LYLE MD.2 NEURALGIA NEURITIS AND RADICULITIS UNSPECIFIED 11/13/2010 LAURIE LYLE MD.2 NEURALGIA NEURITIS AND RADICULITIS UNSPECIFIED 11/13/2010 LAURIE LYLE MD.2 NEURALGIA NEURITIS AND RADICULITIS UNSPECIFIED 11/13/2010 HUERTER MD, LAURIE 729.2 NEURALGIA NEURITIS AND RADICULITIS UNSPECIFIED 11/13/2010 LAURIE LYLE MD 729.2 NEURALGIA NEURITIS AND RADICULITIS UNSPECIFIED 11/13/2010 LAURIE LYLE MD 729.2 NEURALGIA NEURITIS AND RADICULITIS UNSPECIFIED 11/13/2010 LAURIE LYLE MD 729.2 NEURALGIA NEURITIS AND RADICULITIS UNSPECIFIED 11/13/2010 LAURIE LYLE MD9.2 NEURALGIA NEURITIS AND RADICULITIS UNSPECIFIED 11/13/2010 LAURIE LYLE MD9.2 NEURALGIA NEURITIS AND RADICULITIS UNSPECIFIED 11/13/2010 RADHA KAUR DO 729.2 NEURALGIA NEURITIS AND RADICULITIS UNSPECIFIED 11/13/2010 LAURIE LYLE MD9.2 NEURALGIA NEURITIS AND RADICULITIS UNSPECIFIED 11/13/2010 LAURIE LYLE MD 729.2 NEURALGIA NEURITIS AND RADICULITIS UNSPECIFIED 11/13/2010 LAURIE LYLE MD 729.2 NEURALGIA NEURITIS AND RADICULITIS UNSPECIFIED 11/13/2010 RADHA KAUR DO 729.2 NEURALGIA NEURITIS AND RADICULITIS UNSPECIFIED 11/13/2010 LAURIE LYLE MD.2 NEURALGIA NEURITIS AND RADICULITIS UNSPECIFIED 11/13/2010 LAURIE LYLE MD 729.2 NEURALGIA NEURITIS AND RADICULITIS UNSPECIFIED 11/13/2010 LAURIE LYLE MD 72Felix.2 NEURALGIA NEURITIS AND RADICULITIS UNSPECIFIED 11/13/2010 LAURIE LYLE MD 729.2 NEURALGIA NEURITIS AND RADICULITIS UNSPECIFIED 11/13/2010 RADHA KAUR DO 729.2 NEURALGIA NEURITIS AND RADICULITIS UNSPECIFIED 11/13/2010 LAURIE LYLE MD.2 NEURALGIA NEURITIS AND RADICULITIS UNSPECIFIED 11/13/2010 LAURIE LYLE MD 729.2 NEURALGIA NEURITIS AND RADICULITIS UNSPECIFIED 12/12/2010 LAURIE LYLE MD 380.4 Cerumen Impaction 12/12/2010 LAURIE LYLE MD 780.4 Dizziness And Vertigo 12/12/2010 VALDO PATRICK, LAURIE 380.4 Cerumen Impaction 12/12/2010 VALDO PATRICK, LAURIE 780.4 Dizziness And Vertigo 12/12/2010 VALDO PATRICK, LAURIE 380.4 Cerumen Impaction 12/12/2010 VALDO PATRICK, LAURIE 780.4 Dizziness And Vertigo 12/12/2010 VALDO PATRICK, LAURIE 380.4 Cerumen Impaction 12/12/2010 VALDO PATRICK, LAURIE 780.4 Dizziness And Vertigo 12/12/2010 VALDO PATRICK, LAURIE 380.4 Cerumen Impaction 12/12/2010 VALDO PATRICK, LAURIE 780.4 Dizziness And Vertigo 12/12/2010 VALDO PATRICK, LAURIE 380.4 Cerumen Impaction 12/12/2010 VALDO PATRICK, LAURIE 780.4 Dizziness And Vertigo 12/12/2010 VALDO PATRICK, LAURIE 380.4 Cerumen Impaction 12/12/2010 VALDO PATRICK, LAURIE 780.4 Dizziness And Vertigo 12/12/2010 VALDO PATRICK, LAURIE 380.4 Cerumen Impaction 12/12/2010 VALDO PATRICK, LAURIE 780.4 Dizziness And Vertigo 12/12/2010 VALDO PATRICK, LAURIE 380.4 Cerumen Impaction 12/12/2010 VALDO PATRICK, LAURIE 780.4 Dizziness And Vertigo 12/12/2010 VALDO PATRICK, LAURIE 380.4 Cerumen Impaction 12/12/2010 VALDO PATRICK, LAURIE 780.4 Dizziness And Vertigo 12/12/2010 LAURIE LYLE MD 380.4 Cerumen Impaction 12/12/2010 LAURIE LYLE MD 780.4 Dizziness And Vertigo 12/12/2010 KAUR DORADHA K 380.4 Cerumen Impaction 12/12/2010 KAUR DO, RADHA K 780.4 Dizziness And Vertigo 12/12/2010 VALDO PATRICK, LAURIE 380.4 Cerumen Impaction 12/12/2010 LAURIE LYLE MD 780.4 Dizziness And Vertigo 12/12/2010 VALDO PATRICK, LAURIE 380.4 Cerumen Impaction 12/12/2010 VALDO PATRICK, LAURIE 780.4 Dizziness And Vertigo 12/12/2010 VALDO PATRICK, LAURIE 380.4 Cerumen Impaction 12/12/2010 LAURIE LYLE MD 780.4 Dizziness And Vertigo 12/12/2010 RADHA KAUR DO 380.4 Cerumen Impaction 12/12/2010 RADHA KAUR DO 780.4 Dizziness And Vertigo 12/12/2010 LAURIE LYLE MD 380.4 Cerumen Impaction 12/12/2010 LAURIE LYLE MD 780.4 Dizziness And Vertigo 12/12/2010 LAURIE LYLE MD 380.4 Cerumen Impaction 12/12/2010 LAURIE LYLE MD 780.4 Dizziness And Vertigo 12/12/2010 LAURIE LYLE MD 380.4 Cerumen Impaction 12/12/2010 LAURIE LYLE MD 780.4 Dizziness And Vertigo 12/12/2010 LAURIE LYLE MD 380.4 Cerumen Impaction 12/12/2010 LAURIE LYLE MD 780.4 Dizziness And Vertigo 12/12/2010 RADHA KAUR DO 380.4 Cerumen Impaction 12/12/2010 RADHA KAUR DO 780.4 Dizziness And Vertigo 12/12/2010 LAURIE LYLE MD 380.4 Cerumen Impaction 12/12/2010 LAURIE LYLE MD 780.4 Dizziness And Vertigo 12/12/2010 LAURIE LYLE MD 380.4 Cerumen Impaction 12/12/2010 LAURIE LYLE MD 780.4 Dizziness And Vertigo 06/25/2011 LAURIE LYLE MD.41 Pain In Joint Involving Shoulder Region 06/25/2011 LAURIE LYLE MD.41 Pain In Joint Involving Shoulder Region 06/25/2011 LAURIE LYLE MD.41 Pain In Joint Involving Shoulder Region 06/25/2011 LAURIE LYLE MD.41 Pain In Joint Involving Shoulder Region 06/25/2011 LAURIE LYLE MD.41 Pain In Joint Involving Shoulder Region 06/25/2011 LAURIE LYLE MD.41 Pain In Joint Involving Shoulder Region 06/25/2011 LAURIE LYLE MD.41 Pain In Joint Involving Shoulder Region 06/25/2011 LAURIE LYLE MD.41 Pain In Joint Involving Shoulder Region 06/25/2011 LAURIE LYLE MD.41 Pain In Joint Involving Shoulder Region 06/25/2011 LAURIE LYLE MD 71Felix.41 Pain In Joint Involving Shoulder Region 06/25/2011 LAURIE LYLE MD 719.41 Pain In Joint Involving Shoulder Region 06/25/2011 RADHA KAUR DO 719.41 Pain In Joint Involving Shoulder Region 06/25/2011 LAURIE LYLE MD 719.41 Pain In Joint Involving Shoulder Region 06/25/2011 LAURIE LYLE MD 71Felix.41 Pain In Joint Involving Shoulder Region 06/25/2011 LAURIE LYLE MD.41 Pain In Joint Involving Shoulder Region 06/25/2011 RADHA KAUR DO 719.41 Pain In Joint Involving Shoulder Region 06/25/2011 LAURIE LYLE MD 71Felix.41 Pain In Joint Involving Shoulder Region 06/25/2011 LAURIE LYLE MD.41 Pain In Joint Involving Shoulder Region 06/25/2011 LAURIE LYLE MD.41 Pain In Joint Involving Shoulder Region 06/25/2011 LAURIE LYLE MD.41 Pain In Joint Involving Shoulder Region 06/25/2011 RADHA KAUR DO 719.41 Pain In Joint Involving Shoulder Region 06/25/2011 LAURIE LYLE MD 71Felix.41 Pain In Joint Involving Shoulder Region 06/25/2011 LAURIE LYLE MD.41 Pain In Joint Involving Shoulder Region 08/27/2011 LAURIE LYLE MD 536.8 Dyspepsia And Other Specified Disorders Of Function Of Stomach 08/27/2011 LAURIE LYLE MD 536.8 Dyspepsia And Other Specified Disorders Of Function Of Stomach 08/27/2011 LAURIE LYLE MD6.8 Dyspepsia And Other Specified Disorders Of Function Of Stomach 08/27/2011 LAURIE LYLE MD6.8 Dyspepsia And Other Specified Disorders Of Function Of Stomach 08/27/2011 LAURIE LYLE MD6.8 Dyspepsia And Other Specified Disorders Of Function Of Stomach 08/27/2011 LAURIE LYLE MD6.8 Dyspepsia And Other Specified Disorders Of Function Of Stomach 08/27/2011 LAURIE LYLE MD 536.8 Dyspepsia And Other Specified Disorders Of Function Of Stomach 08/27/2011 LAURIE LYLE MD6.8 Dyspepsia And Other Specified Disorders Of Function Of Stomach 08/27/2011 LAURIE LYLE MD 536.8 Dyspepsia And Other Specified Disorders Of Function Of Stomach 08/27/2011 LAURIE LYLE MD 536.8 Dyspepsia And Other Specified Disorders Of Function Of Stomach 08/27/2011 LAURIE LYLE MD 536.8 Dyspepsia And Other Specified Disorders Of Function Of Stomach 08/27/2011 KAUR DORADHA K 536.8 Dyspepsia And Other Specified Disorders Of Function Of Stomach 08/27/2011 LAURIE LYLE MD 536.8 Dyspepsia And Other Specified Disorders Of Function Of Stomach 08/27/2011 LAURIE LYLE MD 536.8 Dyspepsia And Other Specified Disorders Of Function Of Stomach 08/27/2011 LAURIE LYLE MD.8 Dyspepsia And Other Specified Disorders Of Function Of Stomach 08/27/2011 KAUR DO, RADHA Walsh 536.8 Dyspepsia And Other Specified Disorders Of Function Of Stomach 08/27/2011 LAURIE LYLE MD 536.8 Dyspepsia And Other Specified Disorders Of Function Of Stomach 08/27/2011 LAURIE LYLE MD 536.8 Dyspepsia And Other Specified Disorders Of Function Of Stomach 08/27/2011 LAURIE LYLE MD 536.8 Dyspepsia And Other Specified Disorders Of Function Of Stomach 08/27/2011 LAURIE LYLE MD 536.8 Dyspepsia And Other Specified Disorders Of Function Of Stomach 08/27/2011 KAUR DO, RADHA Walsh 536.8 Dyspepsia And Other Specified Disorders Of Function Of Stomach 08/27/2011 LAURIE LYLE MD 536.8 Dyspepsia And Other Specified Disorders Of Function Of Stomach 08/27/2011 LAURIE LYLE MD 536.8 Dyspepsia And Other Specified Disorders Of Function Of Stomach 12/04/2011 LAURIE LYLE MD.1 Dysuria 12/04/2011 LAURIE LYLE MD.1 Dysuria 12/04/2011 LAURIE LYLE MD.1 Dysuria 12/04/2011 LAURIE LYLE MD8.1 Dysuria 12/04/2011 LAURIE LYLE MD8.1 Dysuria 12/04/2011 LAURIE LYLE MD.1 Dysuria 12/04/2011 LAURIE LYLE MD.1 Dysuria 12/04/2011 VALDO PATRICK, LAURIE 788.1 Dysuria 12/04/2011 VALDO PATRICK, LAURIE 788.1 Dysuria 12/04/2011 VALDO PATRICK, LAURIE 788.1 Dysuria 12/04/2011 VALDO PATRICK, LAURIE 788.1 Dysuria 12/04/2011 KAUR DO, RADHA K 788.1 Dysuria 12/04/2011 VALDO PATRICK, LAURIE 788.1 Dysuria 12/04/2011 VALDO PATRICK, LAURIE 788.1 Dysuria 12/04/2011 VALDO PATRIKC, LAURIE 788.1 Dysuria 12/04/2011 KAUR DO, RADHA K 788.1 Dysuria 12/04/2011 VALDO PATRICK, LAURIE Terry.1 Dysuria 12/04/2011 VALDO PATRICK, LAURIE Riley8.1 Dysuria 12/04/2011 VALDO PATRICK, LAURIE 788.1 Dysuria 12/04/2011 VALDO PATRICK, LAURIE Riley8.1 Dysuria 12/04/2011 KAUR DO, RADHA Jillian 788.1 Dysuria 12/04/2011 VALDO PATRICK, LAURIE 788.1 Dysuria 12/04/2011 LAURIE LYLE MD8.1 Dysuria 12/24/2011 LAURIE LYLE MD 625.8 Other Specified Symptoms Associated With Female Genital Organs 12/24/2011 LAURIE LYLE MD 627.9 Menopausal And Postmenopausal Disorder Unspecified 12/24/2011 LAURIE LYLE MD V76.10 Breast Cancer Screening 12/24/2011 LAURIE LYLE MD V76.47 Vaginal Pap Smear Screening 12/24/2011 LAURIE LYLE MD 625.8 Other Specified Symptoms Associated With Female Genital Organs 12/24/2011 LAURIE LYLE MD 627.9 Menopausal And Postmenopausal Disorder Unspecified 12/24/2011 LAURIE LYLE MD V76.10 Breast Cancer Screening 12/24/2011 LAURIE LYLE MD V76.47 Vaginal Pap Smear Screening 12/24/2011 LAURIE LYLE MD 625.8 Other Specified Symptoms Associated With Female Genital Organs 12/24/2011 LAURIE LYLE MD 627.9 Menopausal And Postmenopausal Disorder Unspecified 12/24/2011 LAURIE LYLE MD V76.10 Breast Cancer Screening 12/24/2011 LAURIE LLYE MD V76.47 Vaginal Pap Smear Screening 12/24/2011 LAURIE LYLE MD 625.8 Other Specified Symptoms Associated With Female Genital Organs 12/24/2011 LAURIE LYLE MD 627.9 Menopausal And Postmenopausal Disorder Unspecified 12/24/2011 LAURIE LYLE MD V76.10 Breast Cancer Screening 12/24/2011 LAURIE LYLE MD V76.47 Vaginal Pap Smear Screening 12/24/2011 LAURIE LYLE MD 625.8 Other Specified Symptoms Associated With Female Genital Organs 12/24/2011 LAURIE LYLE MD 627.9 Menopausal And Postmenopausal Disorder Unspecified 12/24/2011 LAURIE LYLE MD V76.10 Breast Cancer Screening 12/24/2011 LAURIE LYLE MD V76.47 Vaginal Pap Smear Screening 12/24/2011 LAURIE LYLE MD 625.8 Other Specified Symptoms Associated With Female Genital Organs 12/24/2011 LAURIE LYLE MD 627.9 Menopausal And Postmenopausal Disorder Unspecified 12/24/2011 LAURIE LYLE MD V76.10 Breast Cancer Screening 12/24/2011 LAURIE LYLE MD V76.47 Vaginal Pap Smear Screening 12/24/2011 LAURIE LYLE MD 625.8 Other Specified Symptoms Associated With Female Genital Organs 12/24/2011 LAURIE LYLE MD 62Ari.9 Menopausal And Postmenopausal Disorder Unspecified 12/24/2011 LAURIE LYLE MD V76.10 Breast Cancer Screening 12/24/2011 LAURIE LYLE MD V76.47 Vaginal Pap Smear Screening 12/24/2011 LAURIE LYLE MD 625.8 Other Specified Symptoms Associated With Female Genital Organs 12/24/2011 LAURIE LYLE MD 627.9 Menopausal And Postmenopausal Disorder Unspecified 12/24/2011 LAURIE LYLE MD V76.10 Breast Cancer Screening 12/24/2011 LAURIE LYLE MD V76.47 Vaginal Pap Smear Screening 12/24/2011 LAURIE LYLE MD 625.8 Other Specified Symptoms Associated With Female Genital Organs 12/24/2011 LAURIE LYLE MD 627.9 Menopausal And Postmenopausal Disorder Unspecified 12/24/2011 ALURIE LYLE MD V76.10 Breast Cancer Screening 12/24/2011 LAURIE LYLE MD V76.47 Vaginal Pap Smear Screening 12/24/2011 LAURIE LYLE MD 625.8 Other Specified Symptoms Associated With Female Genital Organs 12/24/2011 LAURIE LYLE MD 627.9 Menopausal And Postmenopausal Disorder Unspecified 12/24/2011 LAURIE LYLE MD V76.10 Breast Cancer Screening 12/24/2011 LAURIE LYLE MD V76.47 Vaginal Pap Smear Screening 12/24/2011 LAURIE LYLE MD 625.8 Other Specified Symptoms Associated With Female Genital Organs 12/24/2011 LAURIE LYLE MD 627.9 Menopausal And Postmenopausal Disorder Unspecified 12/24/2011 LAURIE LYLE MD V76.10 Breast Cancer Screening 12/24/2011 LAURIE LYLE MD V76.47 Vaginal Pap Smear Screening 12/24/2011 RADHA KAUR DO 625.8 Other Specified Symptoms Associated With Female Genital Organs 12/24/2011 RADHA KAUR DO 627.9 Menopausal And Postmenopausal Disorder Unspecified 12/24/2011 RADHA KAUR DO V76.10 Breast Cancer Screening 12/24/2011 RADHA KAUR DO V76.47 Vaginal Pap Smear Screening 12/24/2011 LAURIE LYLE MD 625.8 Other Specified Symptoms Associated With Female Genital Organs 12/24/2011 LAURIE LYLE MD 627.9 Menopausal And Postmenopausal Disorder Unspecified 12/24/2011 LAURIE LYLE MD V76.10 Breast Cancer Screening 12/24/2011 LAURIE LYLE MD V76.47 Vaginal Pap Smear Screening 12/24/2011 LAURIE LYLE MD 625.8 Other Specified Symptoms Associated With Female Genital Organs 12/24/2011 LUARIE LYLE MD 62Ari.9 Menopausal And Postmenopausal Disorder Unspecified 12/24/2011 LAURIE LYLE MD V76.10 Breast Cancer Screening 12/24/2011 LAURIE LYLE MD V76.47 Vaginal Pap Smear Screening 12/24/2011 LAURIE LYLE MD 625.8 Other Specified Symptoms Associated With Female Genital Organs 12/24/2011 LAURIE LYLE MD.9 Menopausal And Postmenopausal Disorder Unspecified 12/24/2011 LAURIE LYLE MD V76.10 Breast Cancer Screening 12/24/2011 LAURIE LYLE MD V76.47 Vaginal Pap Smear Screening 12/24/2011 RADHA KAUR DO 625.8 Other Specified Symptoms Associated With Female Genital Organs 12/24/2011 RADHA KAUR DO 627.9 Menopausal And Postmenopausal Disorder Unspecified 12/24/2011 RADHA KAUR DO V76.10 Breast Cancer Screening 12/24/2011 RADHA KAUR DO V76.47 Vaginal Pap Smear Screening 12/24/2011 LAURIE LYLE MD 625.8 Other Specified Symptoms Associated With Female Genital Organs 12/24/2011 LAURIE LYLE MD 627.9 Menopausal And Postmenopausal Disorder Unspecified 12/24/2011 LAURIE LYLE MD V76.10 Breast Cancer Screening 12/24/2011 LAURIE LYLE MD V76.47 Vaginal Pap Smear Screening 12/24/2011 LAURIE LYLE MD 625.8 Other Specified Symptoms Associated With Female Genital Organs 12/24/2011 LAURIE LYLE MD 627.9 Menopausal And Postmenopausal Disorder Unspecified 12/24/2011 LAURIE LYLE MD V76.10 Breast Cancer Screening 12/24/2011 LAURIE LYLE MD V76.47 Vaginal Pap Smear Screening 12/24/2011 LAURIE LYLE MD 625.8 Other Specified Symptoms Associated With Female Genital Organs 12/24/2011 LAURIE LYLE MD 627.9 Menopausal And Postmenopausal Disorder Unspecified 12/24/2011 LAURIE LYLE MD V76.10 Breast Cancer Screening 12/24/2011 LAURIE LYLE MD V76.47 Vaginal Pap Smear Screening 12/24/2011 LAURIE LYLE MD 625.8 Other Specified Symptoms Associated With Female Genital Organs 12/24/2011 LAURIE LYLE MD 627.9 Menopausal And Postmenopausal Disorder Unspecified 12/24/2011 LAURIE LYLE MD V76.10 Breast Cancer Screening 12/24/2011 LAURIE LYLE MD V76.47 Vaginal Pap Smear Screening 12/24/2011 RADHA KAUR DO 625.8 Other Specified Symptoms Associated With Female Genital Organs 12/24/2011 RADHA KAUR DO 627.9 Menopausal And Postmenopausal Disorder Unspecified 12/24/2011 RADHA KAUR DO K V76.10 Breast Cancer Screening 12/24/2011 RADHA KAUR DO V76.47 Vaginal Pap Smear Screening 12/24/2011 LAURIE LYLE MD 625.8 Other Specified Symptoms Associated With Female Genital Organs 12/24/2011 LAURIE LYLE MD.9 Menopausal And Postmenopausal Disorder Unspecified 12/24/2011 LAURIE LYLE MD V76.10 Breast Cancer Screening 12/24/2011 LAURIE LYLE MD V76.47 Vaginal Pap Smear Screening 12/24/2011 LAURIE LYLE MD 625.8 Other Specified Symptoms Associated With Female Genital Organs 12/24/2011 LAURIE LYLE MD 627.9 Menopausal And Postmenopausal Disorder Unspecified 12/24/2011 LAURIE LYLE MD V76.10 Breast Cancer Screening 12/24/2011 LAURIE LYLE MD V76.47 Vaginal Pap Smear Screening 02/04/2012 LAURIE LYLE MD 577.9 Unspecified Disease Of Pancreas 02/04/2012 LAURIE LYLE MD 577.9 Unspecified Disease Of Pancreas 02/04/2012 LAURIE LYLE MD 577.9 Unspecified Disease Of Pancreas 02/04/2012 LAURIE LYLE MD 577.9 Unspecified Disease Of Pancreas 02/04/2012 LAURIE LYLE MD 577.9 Unspecified Disease Of Pancreas 02/04/2012 LAURIE LYLE MD 577.9 Unspecified Disease Of Pancreas 02/04/2012 LAURIE LYLE MD 577.9 Unspecified Disease Of Pancreas 02/04/2012 LAURIE LYLE MD 577.9 Unspecified Disease Of Pancreas 02/04/2012 LAURIE LYLE MD 577.9 Unspecified Disease Of Pancreas 02/04/2012 LAURIE LYLE MD 577.9 Unspecified Disease Of Pancreas 02/04/2012 LAURIE LYLE MD 577.9 Unspecified Disease Of Pancreas 02/04/2012 RADHA KAUR DO 577.9 Unspecified Disease Of Pancreas 02/04/2012 LAURIE LYLE MD 577.9 Unspecified Disease Of Pancreas 02/04/2012 LAURIE LYLE MD 577.9 Unspecified Disease Of Pancreas 02/04/2012 LAURIE LYLE MD 577.9 Unspecified Disease Of Pancreas 02/04/2012 RADHA KAUR DO 577.9 Unspecified Disease Of Pancreas 02/04/2012 LAURIE LYLE MD 577.9 Unspecified Disease Of Pancreas 02/04/2012 LAURIE LYLE MD 577.9 Unspecified Disease Of Pancreas 02/04/2012 LAURIE LYLE MD 577.9 Unspecified Disease Of Pancreas 02/04/2012 VALDO PATRICK, LAURIE 577.9 Unspecified Disease Of Pancreas 02/04/2012 RADHA KAUR DO 577.9 Unspecified Disease Of Pancreas 02/04/2012 VALDO PATRICK, LAURIE 577.9 Unspecified Disease Of Pancreas 02/04/2012 VALDO PATRICK, LAURIE 577.9 Unspecified Disease Of Pancreas 03/11/2012 VALDO PATRICK, LAURIE 575.9 Gallbladder Disease Unspec 03/11/2012 VALDO PATRICK, LAURIE 593.9 Renal Insufficiency 03/11/2012 VALDO PATRICK, LAURIE 575.9 Gallbladder Disease Unspec 03/11/2012 VALDO PATRICK, LAURIE 593.9 Renal Insufficiency 03/11/2012 VALDO PATRICK, LAURIE 575.9 Gallbladder Disease Unspec 03/11/2012 VALDO PATRICK, LAURIE 593.9 Renal Insufficiency 03/11/2012 VALDO PATRICK, LAURIE 575.9 Gallbladder Disease Unspec 03/11/2012 VALDO PATRICK, LAURIE 593.9 Renal Insufficiency 03/11/2012 VALDO PATRICK, LAURIE 575.9 Gallbladder Disease Unspec 03/11/2012 VALDO PATRICK, LAURIE 593.9 Renal Insufficiency 03/11/2012 VALDO PATRICK, LAURIE 575.9 Gallbladder Disease Unspec 03/11/2012 VALDO PATRICK, LAURIE 593.9 Renal Insufficiency 03/11/2012 VALDO PATRICK, LAURIE 575.9 Gallbladder Disease Unspec 03/11/2012 VALDO PATRICK, LAURIE 593.9 Renal Insufficiency 03/11/2012 VALDO PATRICK, LAURIE 575.9 Gallbladder Disease Unspec 03/11/2012 VALDO PATRICK, LAURIE 593.9 Renal Insufficiency 03/11/2012 VALDO PATRICK, LAURIE 575.9 Gallbladder Disease Unspec 03/11/2012 VALDO PATRICK, LAURIE 593.9 Renal Insufficiency 03/11/2012 VALDO PATRICK, LAURIE 575.9 Gallbladder Disease Unspec 03/11/2012 VALDO PATRICK, LAURIE 593.9 Renal Insufficiency 03/11/2012 VALDO PATRICK, LAURIE 575.9 Gallbladder Disease Unspec 03/11/2012 VALDO PATRICK, LAURIE 593.9 Renal Insufficiency 03/11/2012 RADHA KAUR DO 575.9 Gallbladder Disease Unspec 03/11/2012 KAUR DORADHA 593.9 Renal Insufficiency 03/11/2012 VALDO PATRICK, LAURIE 575.9 Gallbladder Disease Unspec 03/11/2012 VALDO PATRICK, LAURIE 593.9 Renal Insufficiency 03/11/2012 VALDO PATRICK, LAURIE 575.9 Gallbladder Disease Unspec 03/11/2012 VALDO PATRICK, LAURIE 593.9 Renal Insufficiency 03/11/2012 VALDO PATRICK, LAURIE 575.9 Gallbladder Disease Unspec 03/11/2012 VALDO PATRICK, LAURIE 593.9 Renal Insufficiency 03/11/2012 KAUR DOARMANDOA K 575.9 Gallbladder Disease Unspec 03/11/2012 KAUR DO, RADHA K 593.9 Renal Insufficiency 03/11/2012 VALDO PATRICK, LAURIE Dumont5.9 Gallbladder Disease Unspec 03/11/2012 VALDO PATRICK, LAURIE 593.9 Renal Insufficiency 03/11/2012 VALDO PATRICK, LAURIE 575.9 Gallbladder Disease Unspec 03/11/2012 LAURIE LYLE MD 593.9 Renal Insufficiency 03/11/2012 LAURIE LYLE MD 575.9 Gallbladder Disease Unspec 03/11/2012 VALDO PATRICK, LAURIE 593.9 Renal Insufficiency 03/11/2012 VALDO PATRICK, LAURIE 575.9 Gallbladder Disease Unspec 03/11/2012 VALDO PATRICK, LAURIE 593.9 Renal Insufficiency 03/11/2012 KAUR DO, RADHA K 575.9 Gallbladder Disease Unspec 03/11/2012 KAUR DO, RADHA K 593.9 Renal Insufficiency 03/11/2012 VALDO PATRICK, LAURIE 575.9 Gallbladder Disease Unspec 03/11/2012 LAURIE LYLE MD 593.9 Renal Insufficiency 03/11/2012 LAURIE LYLE MD.9 Gallbladder Disease Unspec 03/11/2012 LAURIE LYLE MD 593.9 Renal Insufficiency 04/28/2012 LAURIE LYLE MD2.3 EDEMA 04/28/2012 VALDO PATRICK, LAURIE 782.3 EDEMA 04/28/2012 VALDO PATRICK, LAURIE 782.3 EDEMA 04/28/2012 VALDO PATRICK, LAURIE 782.3 EDEMA 04/28/2012 VALDO PATRICK, LAURIE 782.3 EDEMA 04/28/2012 VALDO PATRICK, LAURIE 782.3 EDEMA 04/28/2012 VALDO PATRICK, LAURIE Riley2.3 EDEMA 04/28/2012 VALDO PATRIKC, LAURIE 782.3 EDEMA 04/28/2012 VALDO PATRICK, LAURIE 782.3 EDEMA 04/28/2012 VALDO PATRICK, LAURIE 782.3 EDEMA 04/28/2012 VALDO PATRICK, LAURIE 782.3 EDEMA 04/28/2012 KAUR DO, RADHA K 782.3 EDEMA 04/28/2012 VALDO PATRICK, LAURIE 782.3 EDEMA 04/28/2012 VALDO PATRICK, LAURIE 782.3 EDEMA 04/28/2012 VALDO PATRICK, LAURIE 782.3 EDEMA 04/28/2012 KAUR DO, RADHA K 782.3 EDEMA 04/28/2012 VALDO PATRICK, LAURIE 782.3 EDEMA 04/28/2012 VALDO PATRICK, LAURIE 782.3 EDEMA 04/28/2012 VALDO PATRICK, LAURIE 782.3 EDEMA 04/28/2012 VALDO PATRICK, LAURIE 782.3 EDEMA 04/28/2012 KAUR DO, RADHA Jillian 782.3 EDEMA 04/28/2012 VALDO PATRICK, LAURIE 782.3 EDEMA 04/28/2012 VALDO PATRICK, LAURIE 782.3 EDEMA 04/30/2012 Ot 250.00 04/30/2012 Ot 401.9 04/30/2012 Ot 496 04/30/2012 Ot 782.3 05/04/2013 VALDO PATRICK, LAURIE Crawford.90 UNSPECIFIED ARTHROPATHY SITE UNSPECIFIED 05/04/2013 VALDO PATRICK, LAURIE Crawford.90 UNSPECIFIED ARTHROPATHY SITE UNSPECIFIED 05/04/2013 VALDO PATRICK, LAURIE Crawford.Ray UNSPECIFIED ARTHROPATHY SITE UNSPECIFIED 05/04/2013 VALDO PATRICK, LAURIE Crawford.90 UNSPECIFIED ARTHROPATHY SITE UNSPECIFIED 05/04/2013 VALDO PATRICK, LAURIE Crawford.90 UNSPECIFIED ARTHROPATHY SITE UNSPECIFIED 05/04/2013 VALDO PATRICK, LAURIE Crawford.90 UNSPECIFIED ARTHROPATHY SITE UNSPECIFIED 05/04/2013 VALDO PATRICK, LAURIE Crawford.90 UNSPECIFIED ARTHROPATHY SITE UNSPECIFIED 05/04/2013 VALDO PATRICK, LAURIE Crawford.90 UNSPECIFIED ARTHROPATHY SITE UNSPECIFIED 05/04/2013 VALDO PATRICK, LAURIE Crawford.90 UNSPECIFIED ARTHROPATHY SITE UNSPECIFIED 05/04/2013 VALDO PATRICK, LAURIE Crawford.90 UNSPECIFIED ARTHROPATHY SITE UNSPECIFIED 05/04/2013 VALDO PATRICK, LAURIE 716.90 UNSPECIFIED ARTHROPATHY SITE UNSPECIFIED 05/04/2013 KAUR DO, RADHA K 716.90 UNSPECIFIED ARTHROPATHY SITE UNSPECIFIED 05/04/2013 VALDO PATRICK, LAURIE 716.90 UNSPECIFIED ARTHROPATHY SITE UNSPECIFIED 05/04/2013 VALDO PATRICK, LAURIE 716.90 UNSPECIFIED ARTHROPATHY SITE UNSPECIFIED 05/04/2013 VALDO PATRICK, LAURIE 716.90 UNSPECIFIED ARTHROPATHY SITE UNSPECIFIED 05/04/2013 KAUR DO, RADHA K 716.90 UNSPECIFIED ARTHROPATHY SITE UNSPECIFIED 05/04/2013 VALDO PATRICK, LAURIE 716.90 UNSPECIFIED ARTHROPATHY SITE UNSPECIFIED 05/04/2013 VALDO PATRICK, LUARIE 716.90 UNSPECIFIED ARTHROPATHY SITE UNSPECIFIED 05/04/2013 VALDO PATRICK, LAURIE 716.90 UNSPECIFIED ARTHROPATHY SITE UNSPECIFIED 05/04/2013 VALDO PATRICK, LAURIE 716.90 UNSPECIFIED ARTHROPATHY SITE UNSPECIFIED 05/04/2013 KAUR DO, RADHA K 716.90 UNSPECIFIED ARTHROPATHY SITE UNSPECIFIED 05/04/2013 VALDO PATRICK, LAURIE 716.90 UNSPECIFIED ARTHROPATHY SITE UNSPECIFIED 05/04/2013 VALDO PATRICK, LAURIE 716.90 UNSPECIFIED ARTHROPATHY SITE UNSPECIFIED 11/28/2013 KAUR DO, RADHA K Ot 250.00 11/28/2013 KAUR DO, RADHA K Ot 272.4 11/28/2013 KAUR DO, RADHA K Ot 278.00 11/28/2013 KAUR DO, RADHA K Ot 401.9 11/28/2013 KAUR DO, RADHA K Ot 491.21 11/28/2013 KAUR DO, RADHA K Ot 715.36 11/28/2013 KAUR DO, RADHA K Ot 786.09 11/28/2013 KAUR DO, RADHA K Ot V15.82 11/28/2013 KAUR DO, RADHA K Ot V46.2 11/28/2013 KAUR DO, RADHA K Ot V58.62 11/28/2013 KAUR DO, RADHA K Ot V58.65 11/28/2013 KAUR DO, RADHA K Ot V58.69 11/28/2013 KAUR DO, RADHA K Ot V85.41 01/14/2014 RACHEAL PATRICK, KAYLENE Walsh Ot 491.21 01/14/2014 RACHEAL PATRICK, KAYLENE Walsh Ot 786.05 02/05/2014 LYDIA DO, CHEN K Ot 250.00 02/05/2014 LYDIA DO, CHEN K Ot 272.0 02/05/2014 LYIDA DO, CHEN K Ot 300.00 02/05/2014 LYDIA DO, CHEN K Ot 311 02/05/2014 LYDIA DO, CHEN K Ot 338.29 02/05/2014 LYDIA DO, CHEN K Ot 403.90 02/05/2014 LYDIA DO, CHEN K Ot 414.01 02/05/2014 LYDIA DO, CHEN K Ot 491.20 02/05/2014 LYDIA DO, CHEN K Ot 530.81 02/05/2014 LYDIA DO, CHEN K Ot 585.9 02/05/2014 LYDIA DO, CHEN K Ot 716.90 02/05/2014 LYDIA DO, CHEN K Ot 724.5 02/05/2014 LYDIA DO, CHEN K Ot 782.0 02/05/2014 LYDIA DO, CHEN K Ot 782.3 02/05/2014 LYDIA DO, CHEN K Ot 786.05 02/05/2014 LYDIA DO, CHEN K Ot 995.1 02/05/2014 LYDIA DO, CHEN K Ot V46.2 02/05/2014 LYDIA DO, CHEN K Ot V58.67 03/01/2014 KAUR DO, RADHA Walsh 729.5 PAIN IN LIMB 03/01/2014 LAURIE LYLE MD.5 PAIN IN LIMB 03/01/2014 LAURIE LYLE MD.5 PAIN IN LIMB 03/01/2014 LAURIE LYLE MD9.5 PAIN IN LIMB 03/01/2014 LAURIE LYLE MD9.5 PAIN IN LIMB 03/01/2014 KAUR DO, RADHA Walsh 729.5 PAIN IN LIMB 03/01/2014 LAURIE LYLE MD9.5 PAIN IN LIMB 03/01/2014 LAURIE LYLE MD9.5 PAIN IN LIMB 03/14/2014 LAURIE LYLE MD Ot 496 06/25/2014 LAURIE LYLE MD Ot 496 07/26/2014 VALDO PATRICK, LAURIE Gallardo Ot 729.5 07/26/2014 VALDO PATRICK, LAURIE Gallardo Ot 782.3 07/26/2014 Ot 496 07/26/2014 Ot 496 08/27/2014 ROLLY SANTIAGO DO Ot 278.00 08/27/2014 ROLLY SANTIAGO DO Ot 401.9 08/27/2014 JACKROLLY WORTHY DO Ot 492.8 08/27/2014 JACKROLLY WORTHY DO Ot 592.0 08/27/2014 JACKROLLY WORTHY DO Ot 780.54 08/27/2014 JACKROLLY WORTHY DO Ot 799.02 02/01/2015 VALDO PATRICK, LAURIE Gallardo Ot 729.5 02/01/2015 VALDO PATRICK, LAURIE Gallardo Ot 782.3 02/01/2015 Ot 496 02/01/2015 ROLLY SANTIAGO DO Ot 278.00 02/01/2015 ROLLY SANTIAGO DO Ot 401.9 02/01/2015 JACKROLLY WORTHY DO Ot 492.8 02/01/2015 JACK ROLLY WINKLER Ot 592.0 02/01/2015 JACK ROLLY WINKLER Ot 780.54 02/01/2015 JACKROLLY WORTHY DO Ot 799.02 02/25/2015 MODESTA BAUMANN CORPORATE ADMINISTRATOR Ot V76.12 03/05/2015 MODESTA BAUMANN CORPORATE ADMINISTRATOR Ot V76.12 03/11/2015 HERNAN PATRICK, JUNE T Ot 599.72 03/11/2015 HERNAN PATRICK, JUNE T Ot 782.62 03/11/2015 HERNAN PATRICK, JUNE T Ot 786.59 03/11/2015 HERNAN PATRICK, JUNE T Ot 793.11 Procedures Code Description [place] [address] A1C (IN-HOUSE) 05/04/2013 58565 MICRO ALBUMIN-IN HOUSE 05/04/2013 Hilario Lakhani 06/06/2013 21655 OXIMETRY 07/25/2013 J2930 SOLUMEDROL INJ 10/17/2013 39697 THERAPUTIC INJ SQ/IM 10/17/2013 50981 OXIMETRY 10/18/2013 51326 A1C (IN-HOUSE) 10/20/2013 01272 OXIMETRY 10/23/2013 86751 OXIMETRY 11/24/2013 32464 OXIMETRY 11/27/2013 79421 OXIMETRY 12/07/2013 24992 A1C (IN-HOUSE) 01/25/2014 24061 OXIMETRY 01/25/2014 92723 US VENOUS DOPPLER (DVT EVAL ) 03/01/2014 50715 OXIMETRY 03/20/2014 77262 A1C (IN-HOUSE) 05/15/2014 02919 ROUTINE VENIPUNCTURE 11/06/2014 48059 A1C (IN-HOUSE) 11/12/2014 Results There is no data. Encounters ACCT No. Visit Date/Time Discharge Status Pt. Type Provider Facility Loc./Unit Complaint [id number] 11/12/2014 08:46:00 11/12/2014 23:59:59 FELIPE Outpatient LAURIE LYLE MD [id number] 11/12/2014 08:46:00 11/12/2014 23:59:59 CLS Outpatient LAURIE LYLE MD [id number] 07/11/2014 07:02:00 07/11/2014 23:59:59 CLS Outpatient RADHA KAUR DO [id number] 06/18/2014 15:58:00 06/18/2014 23:59:59 CLS Outpatient LAURIE LYLE MD [id number] 05/15/2014 15:49:00 05/15/2014 23:59:59 FELIPE Outpatient LAURIE LYLE MD [id number] 05/15/2014 15:49:00 05/15/2014 23:59:59 CLS Outpatient LAURIE LYLE MD [id number] 03/01/2014 14:07:00 03/01/2014 23:59:59 FELIPE Outpatient LAURIE LYLE MD [id number] 03/01/2014 14:07:00 03/01/2014 23:59:59 FELIPE Outpatient RADHA KAUR DO [id number] 02/08/2014 15:16:00 02/08/2014 23:59:59 FELIPE Outpatient LAURIE LYLE MD [id number] 01/25/2014 15:56:00 01/25/2014 23:59:59 FELIPE Outpatient LAURIE LYLE MD [id number] 01/25/2014 15:56:00 01/25/2014 23:59:59 CLS Outpatient LAURIE LYLE MD [id number] 12/21/2013 15:54:00 12/21/2013 23:59:59 CLS Outpatient RADHA KAUR DO [id number] 12/07/2013 15:23:00 12/07/2013 23:59:59 CLS Outpatient LAURIE LYLE MD [id number] 11/27/2013 15:23:00 11/27/2013 23:59:59 CLS Outpatient LAURIE LYLE MD [id number] 11/27/2013 15:23:00 11/27/2013 23:59:59 CLS Outpatient LAURIE LYLE MD [id number] 11/24/2013 10:24:00 11/24/2013 23:59:59 CLS Outpatient LAURIE LYLE MD [id number] 10/30/2013 13:21:00 10/30/2013 23:59:59 CLS Outpatient LAURIE LYLE MD [id number] 10/20/2013 15:08:00 10/20/2013 23:59:59 CLS Outpatient LAURIE LYLE MD [id number] 10/20/2013 15:08:00 10/20/2013 23:59:59 CLS Outpatient LAURIE LYLE MD [id number] 07/25/2013 09:10:00 07/25/2013 23:59:59 CLS Outpatient LAURIE LYLE MD [id number] 06/05/2013 10:34:00 06/05/2013 23:59:59 CLS Outpatient LAURIE LYLE MD [id number] 05/04/2013 16:15:00 05/04/2013 23:59:59 CLS Outpatient LAURIE LYLE MD [id number] 05/04/2013 16:15:00 05/04/2013 23:59:59 CLS Outpatient LAURIE LYLE MD [id number] 03/11/2015 07:49:00 03/11/2015 12:17:00 DIS Emergency HERNAN PATRICK, JUNE Sandoval [facility] [id number] 02/01/2015 11:16:00 02/01/2015 23:59:59 CLS Outpatient MODESTA BAUMANN APRN [facility] [id number] 07/26/2014 15:26:00 07/26/2014 23:59:59 CLS Outpatient ROLLY SANTIAGO DO [facility] [id number] 04/10/2014 13:00:00 06/25/2014 00:01:00 DIS Outpatient LAURIE LYLE MD [facility] PUL [id number] 03/06/2014 13:00:00 03/14/2014 00:01:00 DIS Outpatient LAURIE LYLE MD [facility] PULM [id number] 03/01/2014 15:35:00 03/01/2014 23:59:59 CLS Outpatient LAURIE LYLE MD [facility] [id number] 02/05/2014 08:14:00 02/05/2014 10:33:00 DIS Emergency CHEN FREEMAN DO [facility] [id number] 01/14/2014 14:08:00 01/14/2014 16:53:00 DIS Emergency KAYLENE SPRINGER MD [facility] [id number] 11/27/2013 16:23:00 11/28/2013 14:10:00 DIS Inpatient RADHA KAUR DO Via [address] [id number] 10/26/2013 07:13:00 10/28/2013 13:30:00 DIS Inpatient [id number] 07/05/2013 22:53:00 07/10/2013 15:02:00 DIS Inpatient [id number] 07/26/2014 16:20:00 Document Registration [id number] 06/26/2014 15:00:00 Document Registration [id number] 04/28/2012 16:44:00 Document Registration [id number] 09/27/2010 09:21:00 Document Registration [email or web address] 03/11/2015 07:50:16 ACT Document Registration [id number] 08/01/2018 08:25:00 08/01/2018 23:59:00 DIS Outpatient HILARIO THAO
[2018-11-20 11:42] LABS: BASOPHILS # (AUTO) 0.1 10^3/uL (0.0-0.1); BASOPHILS % (AUTO) 1 % (0-10); EOSINOPHILS # (AUTO) 0.3 10^3/uL (0.0-0.3); EOSINOPHILS % (AUTO) 3 % (0-10); HEMATOCRIT 47 % (35-52); HEMOGLOBIN 15.8 G/DL (11.5-16.0); LYMPHOCYTES # (AUTO) 2.4 X 10^3 (1.0-4.0); LYMPHOCYTES % (AUTO) 27 % (12-44); MEAN CORPUSCULAR HEMOGLOBIN 33 PG (25-34); MEAN CORPUSCULAR HGB CONC 34 G/DL (32-36); MEAN CORPUSCULAR VOLUME 98 FL (80-99); MEAN PLATELET VOLUME 9.8 FL (7.4-10.4); MONOCYTES # (AUTO) 0.7 X 10^3 (0.0-1.0); MONOCYTES % (AUTO) 8 % (0-12); NEUTROPHILS # (AUTO) 5.5 X 10^3 (1.8-7.8); NEUTROPHILS % (AUTO) 62 % (42-75); PLATELET COUNT 195 10^3/uL (130-400); RED CELL DISTRIBUTION WIDTH 13.9 % (10.0-14.5); WHITE BLOOD COUNT 8.9 10^3/uL (4.3-11.0)
[2018-11-20 11:54] LABS: BACTERIA,URINE MODERATE /HPF
[2018-11-20 12:05] LABS: ALBUMIN 4.3 GM/DL (3.2-4.5); BILIRUBIN,TOTAL 0.4 MG/DL (0.1-1.0); CREATININE SERUM 1.24 MG/DL (0.60-1.30); TOTAL PROTEIN 8.1 GM/DL (6.4-8.2)
[2018-11-20] MEDS ORDERED: cefTRIAXone FOR IV USE 1,000 MG in WATER (STERILE) FOR INJECTION 10 ML IV ONE (12:15)
[2018-11-20] MEDS ORDERED: fentaNYL INJECTION 100 MCG/2 ML AMP IVP ONE (12:15)
--- NOTE | 2018-11-20 12:41 | Diagnostic Imaging Report ---
PROCEDURE: CT urinary tract, rule out kidney stone. TECHNIQUE: Multiple contiguous axial images were obtained through the abdomen and pelvis without the use of intravenous contrast. Auto Exposure Controls were utilized during the CT exam to meet ALARA standards for radiation dose reduction. INDICATION: Bilateral flank pain. CORRELATION STUDY: 03/23/2012. FINDINGS: LOWER THORAX: Clear. LIVER: Enlarged with changes reflecting hepatic steatosis. GALLBLADDER: Cholecystectomy. No bile duct dilatation. SPLEEN: Calcified granulomas. PANCREAS: Unremarkable. ADRENAL GLANDS: Unremarkable. KIDNEYS: 12 mm rounded low-density focus inferior pole of the right kidney. It does appear to be somewhat changed from prior study. Right kidney collecting system is otherwise unremarkable. Irregular-shaped calcification inferior pole of the left kidney maximum dimension 17 x 15 mm is present. The left kidney and collecting system otherwise unremarkable. No hydronephrosis. ABDOMINAL AORTA: Trace abdominal wall calcification, nonaneurysmal. GASTROINTESTINAL TRACT: Stomach decompressed. Small bowel unremarkable. Mild severity fecal retention within the colon. Normal appendix in the right lower quadrant. URINARY BLADDER: Relatively decompressed but appearing unremarkable. REPRODUCTIVE: Post hysterectomy changes. There is a rounded lucency in the low midline pelvis with rounded densities dependently. This may be reflective of a support device. OSSEOUS STRUCTURES: No acute abnormality. OTHER: Likely surgical changes of the abdominal wall. IMPRESSION: 1. Nonobstructing stone inferior pole of left kidney. No evidence for obstructive uropathy. Negative for acute abnormality about the abdomen and/or pelvis. 2. Small rounded low-density foci inferior pole right kidney. This may reflect a cyst but is incompletely characterized. Short-term nonemergent followup renal ultrasound imaging recommended. 3. Post cholecystectomy and hysterectomy changes. Dictated by: Dictated on workstation # [id number]
--- OUTSIDE RECORDS SUMMARY | 2018-11-20 14:04 | XMS REPORT | Clinical Summary ---
Author Author [facility] Organization [facility] Address Unknown Phone Unavailable Care Team Providers Care Garde Manager Name Role Phone Angela Galloway MD Unavailable Yassine Cano MD Unavailable Chantel Don DO Unavailable Jeremy Franco MD Unavailable Unavailable Angela Galloway MD PCP Joanna Causey RD Unavailable Unavailable Leeanna Cheema RN Unavailable Unavailable Patrick Astorga MD Unavailable April Weaver DO Unavailable Genevieve Chavira MD Unavailable Gege Joseph MD Unavailable Jermaine Penaloza MD Unavailable Bijan [facility] Unavailable Smiley Barahona RN Unavailable Unavailable Source Comments Some departments are not documenting in the electronic medical record. If you do not see the information that you expected, contact Release of Information in the Health Information Management department at [phone] for further assistance in locating additional records.[facility] Allergies Comments Active Allergy Reactions Severity [...] tablet mouth twice 3 daily. Active Insulin Chester 100 Each 11 (Disposable) (ULTICARE) 3 29 [...] mass 01/03/2013 Overview: Resolved on subsequent CT ILMA (dyspnea on exertion) 01/03/2013 Last Assessment & [...] history of smoking. - recommend seeing a Assembler Flexible Leads for further evaluation as she has been [...] on file. For more information, please contact: [facility] [address] [place] [address]
--- OUTSIDE RECORDS SUMMARY | 2018-11-20 14:05 | XMS REPORT | Clinical Summary ---
Author Author [facility] Address Unknown Phone Unavailable Care Team Providers Care Condenser Setter Name Role Phone Ebony Sharp MD PCP [...] pain Morbid obesity due to excess calories ([facility]) 07/10/2016 Last Assessment & Plan: Counseled regarding weight loss SASHA on CPAP 06/30/2016 Last Assessment & Plan: Stable, continue CPAP at HS Type 2 diabetes mellitus with hyperglycemia, with long-term current use of 06/29/2016 insulin ([facility]) Last Assessment & Plan: Mildly hyperglycemic, likely [...] Taken Blood Pressure 138/85 09/13/2018 2:01 PM STRUCTURAL ARCHITECT Pulse 76 09/13/2018 2:54 PM STRUCTURAL ARCHITECT Temperature 36.7 C (98.1 F) 09/13/2018 9:59 AM STRUCTURAL ARCHITECT Respiratory Rate 16 09/13/2018 2:54 PM STRUCTURAL ARCHITECT Oxygen Saturation 91% 09/13/2018 2:54 PM STRUCTURAL ARCHITECT Inhaled Oxygen - - Concentration Weight 101.5 kg (223 lb 11.2 oz) 11/01/2018 3:57 PM CDT Height 152.4 cm (5') 09/13/2018 9:59 AM STRUCTURAL ARCHITECT Body Mass Index 43.69 11/01/2018 3:57 PM [...] Td # Excluded Implants Implanted Type Area Staff Counsel Device Expiration Model / Identifier Date Serial / Lot Implant Screw Locking 4.5mm X 38mm Non-Tissue Left: [facility] [id number] [id number] - [id number] Implant Ankle / Implanted: Qty: 1 on 04/09/2017 by / Adelaida Olivas MD Implant Screw Non-Locking 4.5mm X Non-Tissue Left: [facility] [id number] 38mm [id number] - [id number] Implant Ankle / Implanted: Qty: 1 on 04/09/2017 by / Adelaida Olivas MD Implant Screw Locking 4.5mm X 30mm Non-Tissue Left: [facility] [id number] [id number] - [id number] Implant Ankle / Implanted: Qty: 1 on 04/09/2017 by / Adelaida Olivas MD Implant Screw Locking 4.5mm X 28mm Non-Tissue Left: [facility] [id number] [id number] - [id number] Implant Ankle / Implanted: Qty: 1 on 04/09/2017 by / Adelaida Olivas MD Implant Screw Locking 5.5mm X 28mm Non-Tissue Left: [facility] [id number] - [id number] Implant Ankle / Implanted: Qty: 1 on 04/09/2017 by / Adelaida Olivas MD Implant Screw Roxane 8.0mm X 45mm Non-Tissue Left: [employer] [id number] / [id number] - [id number] Implant Ankle / Implanted: Qty: 1 on 04/09/2017 by Adelaida Olivas MD Implant Stimulator Bone Growth Mini Non-Tissue Left: [employer] 10-1320M / Osteogen W/Mesh Cathod 10-1320m - Implant Ankle [id number] / [id number] Implanted: Qty: 1 on 04/09/2017 by Adelaida Olivas MD Implant Plate Sml Ortholoc Lft Non-Tissue Left: [facility] 5920- 2009 [id number] - [id number] Implant Ankle / Implanted: Qty: 1 on 04/09/2017 by / Adelaida Olivas MD Implant Screw Locking 4.5mm X 36mm Non-Tissue Left: [facility] [id number] - Sna Implant Ankle / Implanted: Qty: 1 on 04/09/2017 by JANA / Adelaida Olivas MD Implant Mesh Ventralight St 6" X Non-Tissue N/A: BARD DAVOL 2019 [id number] / 15.2" Synthetic [id number] - Implant Abdomen SURGICAL / [id number] Implanted: Qty: 1 on 05/25/2018 by Medardo Tate MD Implant Allograft Bio Viable Human Tissue Left: [employer] 2018 [id number] Tissue Matrix 10ml [id number] - Sn/A Implant Ankle / Implanted: Qty: 1 on 04/09/2017 by N/A / Adelaida Olivas MD [id number] Implant Bone Human Tissue Graft Kit Tissue Left: [facility] 11/20 [id number] 3.0ml [id number] - Sn/A Implant Ankle 0 / Implanted: Qty: 1 on 04/09/2017 by Brianna/Aydee / Adelaida Olivas MD [id number] Intraocular Lens Bilateral: Eye Hardware Screws Left: Ankle Artificial Joint Bilateral: Knee 8.0 X 45 Pt Cannulated Screw Left: [employer] [id number] / Implanted: Qty: 1 on 04/09/2017 by Leon BATES / Adelaida Olivas MD NA Explanted Type Area Staff Counsel Device Expiration Model / Identifier Date Serial / Lot Implant Screw Non-Locking 4.5mm X Non-Tissue Left: [facility] [id number] 30mm 8550-3130 - [id number] Implant Ankle / Explanted: Qty: 1 on 04/09/2017 / Procedures Procedure Name Priority Date/Time Associated Diagnosis Comments CT ANGIO CHEST STAT 09/13/2018 Results for this 1:19 PM STRUCTURAL ARCHITECT procedure are in the results section. TROPONIN STAT 09/13/2018 Results for this 1:16 PM STRUCTURAL ARCHITECT procedure are in the results section. LIPASE STAT 09/13/2018 Results for this 10:45 AM STRUCTURAL ARCHITECT procedure are in the results section. TROPONIN STAT 09/13/2018 Results for this 10:45 AM STRUCTURAL ARCHITECT procedure are in the results section. COMPREHENSIVE METABOLIC STAT 09/13/2018 Results for this PANEL 10:45 AM STRUCTURAL ARCHITECT procedure are in the results section. CBC AND DIFF (MANUAL DIFF STAT 09/13/2018 Results for this IF NECESSARY) 10:45 AM STRUCTURAL ARCHITECT procedure are in the results section. XR CHEST SINGLE VIEW STAT 09/13/2018 Results for this FRONTAL 10:35 AM STRUCTURAL ARCHITECT procedure are in the results section. ECG STAT 09/13/2018 Results for this 10:09 AM STRUCTURAL ARCHITECT procedure are in the results section. COMPREHENSIVE METABOLIC Routine 09/12/2018 Benign essential HTN Results for this PANEL 3:22 PM STRUCTURAL ARCHITECT Type 2 diabetes mellitus procedure are in the with hyperglycemia, with results section. long-term current use of insulin (HCC) T4 FREE Routine 09/12/2018 Hyperthyroidism Results for this 3:22 PM STRUCTURAL ARCHITECT procedure are in the results section. THYROID STIMULATING Routine 09/12/2018 Hyperthyroidism Results for this HORMONE 3:22 PM STRUCTURAL ARCHITECT procedure are in the results section. MICROALBUMIN RANDOM Routine 09/12/2018 Type 2 diabetes mellitus Results for this 3:22 PM STRUCTURAL ARCHITECT with hyperglycemia, with procedure are in the long-term current use of results section. insulin (HCC) HEMOGLOBIN A1C Routine 09/12/2018 Type 2 diabetes mellitus Results for this 3:22 PM STRUCTURAL ARCHITECT with hyperglycemia, with procedure are in the long-term current use of results section. insulin (HCC) DEXA BONE DENSITY HIP Routine 09/12/2018 [facility] PELVIS SPINE 3:16 PM STRUCTURAL ARCHITECT from Last 3 Months Results * CT Angio Chest (09/13/2018 1:19 PM) Impressions Performed At No acute findings. No pulmonary embolus. No rib abnormality seen. LEVI Narrative Performed At Patient: ZOE BENÍTEZ Sex#:F # [id number] Jose#:[id number] Location:[facility] SED-27Accession#: [id number] Procedure Requested:[id number] CT ANGIO CHEST Reason for Exam:severe left sided rib pain Exam Ordered: Exam Date/Time: Begin exam date/time: CT ANGIO CHEST READING SITE: [facility] INDICATION: severe left sided rib pain. [...] Rad Results In - 09/13/2018 1:41 PM STRUCTURAL ARCHITECT Patient: ISIAH BENÍTEZ Sex#: F # [id number] Jose#: [id number] Location: [place] [address] Procedure Requested: [id number] CT ANGIO CHEST Reason for Exam: severe left sided rib pain Exam Ordered: 09/13/2018 1115 Exam Date/Time: 09/13/2018 1319 Begin exam date/time: 09/13/[address] ANGIO CHEST READING SITE: [facility] INDICATION: severe left sided rib pain. [...] No rib abnormality seen. Performing Organization Address [facility] Phone Number LEVI * Troponin (09/13/2018 1:16 PM) Only the most recent of 2 results within the time period is included. Troponin <0.01 0.00 - 0.03 ng/mL [facility] Troponin ValueInterpretation 0.00 - 0.03 Healthy 0.04 - 0.12 Increased Cardiac Risk >0.12M yocardial Infarction Troponin may not become elevated until 6 to 8 hours after onset of symptoms. Specimen Blood Performing Organization Address [facility] Phone Number [facility] [address] [facility] Center[facility]ate[facility]ug[facility] Fish NatureFitzgibbon Hospital, [place] [phone] [facility] [address] [facility] [email or web address] [address] [facility] * Lipase (09/13/2018 10:45 AM) Lipase 50 23 - 300 IU/L [facility] Specimen Blood Performing Organization Address [facility] Phone Number [facility] [address] [facility] Center[facility] [place] [address] [facility] [address] [facility] [email or web address] [address] [facility] * Comprehensive Metabolic Panel (09/13/2018 10:45 AM) Only the most recent of 2 results within the time period is included. Sodium 138 133 - 147 MEQ/L [facility] Potassium 4.2 3.5 - 5.3 MEQ/L [facility] Chloride 101 96 - 112 MEQ/L [facility] Carbon Dioxide 28 20 - 32 MEQ/L [facility] Anion Gap 9 5 - 17 [facility] Calcium 9.0 8.4 - 10.5 mg/dL [facility] Glucose 282 (H) 70 - 100 mg/dL [facility] Protein Total Serum 7.4 6.0 - 8.2 g/dL [facility] Albumin 3.9 3.5 - 5.0 g/dL [facility] Alkaline Phosphatase 89 42 - 140 IU/L [facility] Alanine Aminotransferase 45 (H)Comment: ALT reference 0 - 34 IU/L [facility] - range changed on 03-01-2018 [facility] Aspartate 46 15 - 46 IU/L [facility] Bilirubin Total 0.4 0.2 - 1.3 mg/dL [facility] Blood Urea Nitrogen 11 7 - 26 mg/dL [facility] Creatinine 0.6 0.4 - 1.1 mg/dL [facility] eGFR Female AA 120 60 - 200 [facility] - Comment: [facility] Chronic Kidney Disease less than 60 mL/min/1.73 sq.m Kidney failure less than 15 mL/min/1.73 sq.m eGFR Female Non-AA 100 60 - 200 [facility] - Comment: [facility] Chronic Kidney Disease less than 60 mL/min/1.73 sq.m Kidney failure less than 15 mL/min/1.73 sq.m Specimen Blood Performing Organization Address City/State/Zipcode Phone Number [facility] [address] [facility], [place] [phone] [facility] [address] [place] [address] [facility] * CBC and Diff (manual diff if necessary) (09/13/2018 10:45 AM) WBC 8.11 4.00 - 11.00 TH/uL [facility] RBC 4.27 4.00 - 5.00 MIL/uL [facility] Hemoglobin 14.1 12.0 - 15.0 g/dL [facility] Hematocrit 41 36 - 45 % [facility] MCV 97 80 - 99 fL [facility] MCH 33 27 - 34 pg [facility] MCHC 34 32 - 36 % [facility] RDW 13.1 9.0 - 14.5 % [facility] Platelet Count 171 140 - 400 TH/uL [facility] MPV 10.2 9.4 - 12.[address] [facility] % Neutrophils 66 45 - 78 % [facility] %Lymphocytes 23 15 - 47 % [facility] %Monocytes 7 0 - 12 % [facility] %Eosinophils 4 0 - 7 % [facility] %Basophils 1 0 - 2 % [facility] # Granulocytes 5.32 1.7 - 6.8 TH/uL [facility] # Lymphocytes 1.87 1.0 - 3.3 TH/uL [facility] # Monocytes 0.58 0.2 - 0.9 TH/uL [facility] # Eosinophils 0.29 0.0 - 0.4 TH/uL [facility] # Basophils 0.05 0.0 - 0.1 TH/uL [facility] Specimen Blood Performing Organization Address City/State/Zipcode Phone Number [facility] [address] [facility] [place] [address] [facility] [address] [place] [address] [facility] * XR Chest single view frontal (09/13/2018 10:35 AM) Impressions Performed At Bandlike opacity in the left midlung zone possibly MCKESSON reflecting scarring or atelectasis. No focal consolidation. READING SITE: [facility] Narrative Performed At Patient: ZOE BENÍTEZ Sex#:F # [id number] Jose#:[id number] Location:[facility] SED- Procedure Requested:[id number] XR CHEST SINGLE VIEW FRONTAL Reason for [...] Rad Results In - 09/13/2018 11:06 AM STRUCTURAL ARCHITECT Patient: ISIAH BENÍTEZ Sex#: F # 1950 Jose#: [id number] Location: [facility] SED- Procedure Requested: [id number] XR CHEST SINGLE VIEW FRONTAL Reason for [...] or atelectasis. No focal consolidation. READING SITE: [facility] Performing Organization Address [facility] Phone Number MCKESSON * Electrocardiogram (ECG) (09/13/2018 10:09 AM) QRSd 104 TRACEMASTER QT 412 TRACEMASTER QTC 448 TRACEMASTER ECGHR 71 TRACEMASTER ECGPR 152 TRACEMASTER Narrative Performed At [facility] ED Test Date:2018-09-13 Pat Name: ISIAH BENÍTEZDepartment: ERS Room: SED Gender: Female [employer]: [id number] :1950 Requested By: CHAVA KELLY Order Number: [id number] MD: Measurements IntervalsAxis Rate: 71 P:46 RI: 152QRS:49 QRSD: 104T:56 QT: 412 QTc:448 Interpretive Statements SINUS RHYTHM Procedure Note Interface, External Ris In - 09/13/2018 4:34 PM [facility] ED Test Date: 2018-09-13 Pat Name: ISIAH BENÍTEZ Department: ERS Room: SED Gender: Female [employer] Driver: [id number] : 1950 Requested By: CHAVA KELLY Order Number: [id number] Reading MD: Measurements Intervals [place] Rate: 71 P: 46 RI: 152 QRS: 49 QRSD: 104 T: 56 QT: 412 QTc: 448 Interpretive Statements SINUS RHYTHM Performing Organization Address [facility] Phone Number TRACEMASTER * Microalbumin Random (09/12/2018 3:22 PM) Creatinine Urine Random 320.3 mg/dL [facility] Microalbumin mg/dl 12.10 mg/dL [facility] Microalbumin/Creatinine 37.78 (H) 0.00 - 30.00 ug/mg [facility] Ratio REGIONAL [facility] Specimen Urine Performing Organization Address [facility] Phone Number [facility] [address] [place] [address] LABORATORIES * Thyroid Stimulating Hormone (09/12/2018 3:22 PM) Thyroid Stimulating 0.04 (L) 0.47 - 4.68 uIU/mL [facility] Hormone [facility] Specimen Blood Performing Organization Address [facility] Phone Number [address] [address] LABORATORIES * T4 Free (09/12/2018 3:22 PM) T4 Free 1.1 0.8 - 2.2 ng/dL [facility] Specimen Blood Performing Organization Address [facility] Phone Number [facility] [address] LABORATORIES * Hemoglobin A1C (09/12/2018 3:22 PM) Hemoglobin A1C 11.6 (H) 4.0 - 5.6 % [facility] Comment: REGIONAL Non-diabetic LABORATORIES 4.0 - 5.6 % Prediabetes 5.7 - 6.4 % Diabetes >=6.5 % Specimen Blood Performing Organization Address [facility] Phone Number [facility] [address] [phone] LABORATORIES * DEXA Bone Density Hip Pelvis Spine (09/12/2018 3:16 PM) Narrative Performed At Performing Organization Address [facility] Phone Number MCKESSON from Last 3 Months
--- OUTSIDE RECORDS SUMMARY | 2018-11-20 14:05 | XMS REPORT | Encounter Summary ---
Author Author [facility] Organization [facility] Address Unknown Phone Unavailable Care Team Providers Care Director Craft Center Name Role Phone Ebony Sharp MD PCP Reason for Visit * Reason Comments Other Encounter Details Date Type Department Care Team Description 10/20/2018 Refill [facility] Primary Care Ebony Sharp MD Other - [facility] [address] [facility] [address] [facility] [address] [place] [address] [place] [address] [phone] Social History Tobacco Use Types Packs/Day Years [...]
--- OUTSIDE RECORDS SUMMARY | 2018-11-20 14:05 | XMS REPORT | Encounter Summary ---
Author Author [facility] Organization [facility] Address Unknown Phone Unavailable Care Team Providers Care Material Man Name Role Phone Ebony Sharp MD PCP Reason for Visit * Reason Comments Other Encounter Details Date Type Department Care Team Description 10/23/2018 Refill [facility] Primary Care Ebony Sharp MD Other - [facility] [place] [address] [facility] [address] [facility] [address] [place] [address] [place] [address] [phone] Social History Tobacco Use Types Packs/Day Years [...]
--- OUTSIDE RECORDS SUMMARY | 2018-11-20 14:05 | XMS REPORT | Encounter Summary ---
Author Author [facility] Organization [facility] Address Unknown Phone Unavailable Care Team Providers Care Extrusion Process Operator Name Role Phone Ebony Sharp MD PCP Encounter Details Date Type Department Care Team Description 09/27/2018 Documentation [facility] Primary Care Ebony Sharp MD - [facility] [address] [facility] [address] [facility] [address] [place] [address] [place], [place] [id number] Social History Tobacco Use Types Packs/Day Years [...]
--- OUTSIDE RECORDS SUMMARY | 2018-11-20 14:05 | XMS REPORT | Encounter Summary ---
Author Author [facility] Organization [facility] Address Unknown Phone Unavailable Care Team Providers Care Glass Technician Name Role Phone Ebony Sharp MD PCP Encounter Details Date Type Department Care Team Description 09/15/2018 Documentation [facility] Primary Care Ebony Sharp MD - [facility] [place] [address] [facility] [address] [facility] [address] [place] [address] [place], [place] [phone] Social History Tobacco Use Types Packs/Day Years [...]
--- OUTSIDE RECORDS SUMMARY | 2018-11-20 14:05 | XMS REPORT | Encounter Summary ---
Author Author [facility] Address Unknown Phone Unavailable Care Team Providers Care Offender Employment Specialist Name Role Phone Ebony Sharp MD PCP Reason for Visit * Reason Comments Other Encounter Details Date Type Department Care Team Description 10/21/2018 Refill [facility] Primary Care Ebony Sharp MD Other - [facility] [address] [facility] [address] [facility] [address] [place] [address] [place] [address] [phone] Social History Tobacco Use Types Packs/Day Years [...]
--- OUTSIDE RECORDS SUMMARY | 2018-11-20 14:05 | XMS REPORT | Encounter Summary ---
Author Author [facility] Organization [facility] Address Unknown Phone Unavailable Care Team Providers Care Pouncing Lathe Operator Name Role Phone Ebony Sharp MD PCP Encounter Details Date Type Department Care Team Description 11/01/2018 [facility] Surgical Francoise Coelho RD Specialists [address] [facility] [address] [place], [place] [id number] Social History Tobacco Use Types Packs/Day Years [...] to patient. ? Discussed program overview/pathway o ([facility] program: 3 month=4 visits; 6 months=7 visits, [...]
--- OUTSIDE RECORDS SUMMARY | 2018-11-20 14:05 | XMS REPORT | Encounter Summary ---
Author Author [facility] Address Unknown Phone Unavailable Care Team Providers Care Hospital Orderly Name Role Phone Ebony Sharp MD PCP Reason for Visit * Reason Comments Medication Refill Encounter Details Date Type Department Care Team Description 10/21/2018 Refill [facility] Primary Care RehmertJennifer RNmachinery repair maintenance supervisor Refill - [place] [address] [facility] [address] [place], [place] [id number] Social History Tobacco Use Types Packs/Day Years [...]
--- OUTSIDE RECORDS SUMMARY | 2018-11-20 14:05 | XMS REPORT | Encounter Summary ---
Author Author [facility] Organization [facility] Address Unknown Phone Unavailable Care Team Providers Care Pension Agent Name Role Phone Ebony Sharp MD PCP Reason for Visit * Reason Comments Other Encounter Details Date Type Department Care Team Description 10/18/2018 Refill [facility] Primary Care Ebony Sharp MD Other - [facility] [place] [address] [facility] [address] [facility] [address] [place] [address] [place] [address] [phone] Social History Tobacco Use Types Packs/Day Years [...]
--- OUTSIDE RECORDS SUMMARY | 2018-11-20 14:05 | XMS REPORT | Encounter Summary ---
Author Author [facility] Organization [facility] Address Unknown Phone Unavailable Care Team Providers Care Finish Sander Name Role Phone Ebony Sharp MD PCP Reason for Visit * Reason Comments Other Encounter Details Date Type Department Care Team Description 11/15/2018 Refill [facility] Primary Care Ebony Sharp MD Other - [facility] [place] [address] [facility] [address] [facility] [address] [place] [address] [place] [address] [phone] Social History Tobacco Use Types Packs/Day Years [...]
--- OUTSIDE RECORDS SUMMARY | 2018-11-20 14:06 | XMS REPORT | Encounter Summary ---
Author Author [facility] Organization [facility] Address Unknown Phone Unavailable Care Team Providers Care Critical Care Nurse Specialist Name Role Phone Ebony Sharp MD PCP Encounter Details Date Type Department Care Team Description 09/12/2018 Lab [facility] Primary Care Ebony Sharp MD Benign essential HTN; - [facility] [place] [address] [facility] Type 2 diabetes mellitus [address] [facility] [address] with hyperglycemia, with [address] [place] [address] long-term [place] [address] insulin (HCC); [phone] Hyperthyroidism Social History Tobacco Use Types Packs/Day Years Used Date Former Smoker Cigarettes 0.33 20 Quit: 09/14/2009 Smokeless Tobacco: Never Used Comments: quit 7 years ago Alcohol Use Drinks/Week oz/Week Comments Yes seldom, two to three times a year Sex Assigned at Date Recorded Not on file as of this encounter Progress Notes * Ebony Sharp MD - 09/12/2018 3:30 PM CRUTCHING CONTRACTOR Let us get back on track with [...] diabetes mellitus Results for this 3:22 PM CRUTCHING CONTRACTOR with hyperglycemia, with procedure are in the long-term current use of results section. insulin (HCC) THYROID STIMULATING Routine 09/12/2018 Hyperthyroidism Results for this HORMONE 3:22 PM CRUTCHING CONTRACTOR procedure are in the results section. T4 FREE Routine 09/12/2018 Hyperthyroidism Results for this 3:22 PM CRUTCHING CONTRACTOR procedure are in the results section. HEMOGLOBIN A1C Routine 09/12/2018 Type 2 diabetes mellitus Results for this 3:22 PM CRUTCHING CONTRACTOR with hyperglycemia, with procedure are in the long-term current use of results section. insulin (HCC) COMPREHENSIVE METABOLIC Routine 09/12/2018 Benign essential HTN Results for this PANEL 3:22 PM CRUTCHING CONTRACTOR Type 2 diabetes mellitus procedure are in the with hyperglycemia, with results section. long-term current use of insulin (HCC) in this encounter Results * Comprehensive Metabolic Panel (09/12/2018 3:22 PM) Sodium 139 133 - 147 MEQ/L [facility] Potassium 4.6 3.5 - 5.3 MEQ/L [facility] Chloride 99 96 - 112 MEQ/L [facility] Carbon Dioxide 34 (H) 20 - 32 MEQ/L [facility] Anion Gap 6 5 - 17 [facility] Calcium 9.9 8.4 - 10.5 mg/dL [facility] Glucose 253 (H) 70 - 100 mg/dL [facility] Protein Total Serum 7.3 6.0 - 8.2 g/dL [facility] Albumin 4.0 3.5 - 5.0 g/dL [facility] Alkaline Phosphatase 102 42 - 140 IU/L [facility] Alanine Aminotransferase 47 (H)Comment: ALT reference 0 - 34 IU/L [facility] range changed on 03-01-2018 [facility] Aspartate 45 15 - 46 IU/L [facility] Aminotransferase [facility] Bilirubin Total 0.2 0.2 - 1.3 mg/dL [facility] Blood Urea Nitrogen 16 7 - 26 mg/dL [facility] Creatinine 0.8 0.4 - 1.1 mg/dL [facility] eGFR Female AA 86 60 - 200 [facility] Comment: REGIONAL Chronic Kidney Disease less LABORATORIES than 60 mL/min/1.73 sq.m Kidney failure less than 15 mL/min/1.73 sq.m eGFR Female Non-AA 72 60 - 200 [facility] Comment: REGIONAL Chronic Kidney Disease less LABORATORIES than 60 mL/min/1.73 sq.m Kidney failure less than 15 mL/min/1.73 sq.m Specimen Blood Performing Organization Address City/[facility] Phone Number [address] [phone] LABORATORIES * T4 Free (09/12/2018 3:22 PM) T4 Free 1.1 0.8 - 2.2 ng/dL [facility] Specimen Blood Performing Organization Address City/[facility] Phone Number [address] [address] LABORATORIES * Thyroid Stimulating Hormone (09/12/2018 3:22 PM) Thyroid Stimulating 0.04 (L) 0.47 - 4.68 uIU/mL [facility] LABORATORIES Specimen Blood Performing Organization Address [facility] Phone Number [address] [phone] LABORATORIES * Microalbumin Random (09/12/2018 3:22 PM) Creatinine Urine Random 320.3 mg/dL [facility] Microalbumin mg/dl 12.10 mg/dL [facility] Microalbumin/Creatinine 37.78 (H) 0.00 - 30.00 ug/mg [facility] Ratio [facility]IES Specimen Urine Performing Organization Address [facility] Phone Number [address] [phone] LABORATORIES * Hemoglobin A1C (09/12/2018 3:22 PM) Hemoglobin A1C 11.6 (H) 4.0 - 5.6 % [facility] Comment: REGIONAL Non-diabetic LABORATORIES 4.0 - 5.6 % Prediabetes 5.7 - 6.4 % Diabetes >=6.5 % Specimen Blood Performing Organization Address City/State/Zipcode Phone Number [place] [phone] [place] [address] LABORATORIES in this encounter Visit Diagnoses Diagnosis Benign essential HTN Type 2 diabetes mellitus with hyperglycemia, 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) Hyperthyroidism Thyrotoxicosis without mention of goiter or other cause, without mention of thyrotoxic crisis or storm
--- OUTSIDE RECORDS SUMMARY | 2018-11-20 14:06 | XMS REPORT | Encounter Summary ---
Author Author [facility] Organization [facility] Address Unknown Phone Unavailable Care Team Providers Care Field Hauler Name Role Phone Ebony Sharp MD PCP Reason for Visit * Reason Comments Chest pain Patient presents via [facility] with c/o CP since approx 0630. Pt states its left sided and radiates to back. Pt has IV access and was administered 50 mcg fent, 0.4 nitro sl. Encounter Details Date Type Department Care Team Description 09/13/2018 Emergency [facility] Chava Kelly MD Acute chest pain (Primary Hospital [address] [facility] [address] Dx) [address] [facility] Emergency [place] [address] [place], [place] [phone] Social History Tobacco Use Types Packs/Day Years [...] Taken Blood Pressure 138/85 09/13/2018 2:01 PM DICE DEALER Pulse 76 09/13/2018 2:54 PM DICE DEALER Temperature 36.7 C (98.1 F) 09/13/2018 9:59 AM DICE DEALER Respiratory Rate 16 09/13/2018 2:54 PM DICE DEALER Oxygen Saturation 91% 09/13/2018 2:54 PM DICE DEALER Inhaled Oxygen - - Concentration Weight 106.1 kg (234 lb) 09/13/2018 9:59 AM DICE DEALER Height 152.4 cm (5') 09/13/2018 9:59 AM DICE DEALER Body Mass Index 45.7 09/13/2018 9:59 AM DICE DEALER in this encounter Discharge Instructions The following attachments cannot be sent through Care Everywhere.* CHEST PAIN, NONCARDIAC (FRISIAN) in this encounter Medications at Time of [...] Kayley Samayoa RN - 09/13/2018 2:24 PM DICE DEALER Patient calling family for a ride. Came in by ems * ED Provider Notes - Chava Kelly MD - 09/13/2018 10:25 AM DICE DEALER Formatting of this note may be different from the original. 09/13/[address] [facility] History Chief Complaint Patient presents with Chest [...] disease) (HCC) Depression Diabetes mellitus, type II ([facility]) Endometriosis Fractures [address] [...] or atelectasis. No focal consolidation. READING SITE: [facility] Ebony Sharp MD [address] [facility] [address] [facility] [address] ED Clinical Impression 1. Acute chest pain Patient ED Dispo ED Disposition Discharge Chava Kelly MD 09/13/18 [id number] in this encounter Plan of Treatment Date Type Specialty Care Team Description 11/29/2018 Education General Surgery as of this encounter Procedures Procedure Name Priority Date/Time Associated Diagnosis Comments CT ANGIO CHEST STAT 09/13/2018 Results for this 1:19 PM DICE DEALER procedure are in the results section. TROPONIN STAT 09/13/2018 Results for this 1:16 PM DICE DEALER procedure are in the results section. TROPONIN STAT 09/13/2018 Results for this 10:45 AM DICE DEALER procedure are in the results section. LIPASE STAT 09/13/2018 Results for this 10:45 AM DICE DEALER procedure are in the results section. COMPREHENSIVE METABOLIC STAT 09/13/2018 Results for this PANEL 10:45 AM DICE DEALER procedure are in the results section. CBC AND DIFF (MANUAL DIFF STAT 09/13/2018 Results for this IF NECESSARY) 10:45 AM DICE DEALER procedure are in the results section. XR CHEST SINGLE VIEW STAT 09/13/2018 Results for this FRONTAL 10:35 AM DICE DEALER procedure are in the results section. ECG STAT 09/13/2018 Results for this 10:09 AM DICE DEALER procedure are in the results section. in this encounter Results * CT Angio Chest (09/13/2018 1:19 PM) Impressions Performed At No acute findings. No pulmonary embolus. No rib abnormality seen. LEVI Narrative Performed At Patient: ZOE BENÍTEZ Sex#:F # [id number] Jose#:[id number] Location:[facility] ED SED- Procedure Requested:[id number] CT ANGIO CHEST Reason for Exam:severe left sided rib pain Exam Ordered: Exam Date/Time: Begin exam date/time: CT ANGIO CHEST READING SITE: [facility] INDICATION: severe left sided rib pain. COMPARISON [...] Rad Results In - 09/13/2018 1:41 PM DICE DEALER Patient: ISIAH BENÍTEZ Sex#: F # [id number] Jose#: [id number] Location: [facility] ED SED- Procedure Requested: [id number] CT ANGIO CHEST Reason for Exam: severe left sided rib pain Exam Ordered: 09/13/2018 1115 Exam Date/Time: 09/13/2018 1319 Begin exam date/time: 09/13/[address] ANGIO CHEST READING SITE: [facility] INDICATION: severe left sided rib pain. COMPARISON [...] No rib abnormality seen. Performing Organization Address City/[facility]/[place] Phone Number [facility] * Troponin (09/13/2018 1:16 PM) Only the most recent of 2 results within the time period is included. Troponin <0.01 0.00 - 0.03 ng/mL [facility] Comment: [facility] Troponin ValueInterpretation 0.00 - 0.03 Healthy 0.04 - 0.12 Increased Cardiac Risk >0.12M yocardial Infarction Troponin may not become elevated until 6 to 8 hours after onset of symptoms. Specimen Blood Performing Organization Address City/[facility]/Zipcode Phone Number [facility] [address] [place] [address] [facility] [address] [place] [address] [facility] * Lipase (09/13/2018 10:45 AM) Lipase 50 23 - 300 IU/L [facility] Specimen Blood Performing Organization Address City/State/Zipcode Phone Number [facility] [address] [place] [address] [facility] [address] [place] [address] [facility] * Comprehensive Metabolic Panel (09/13/2018 10:45 AM) Sodium 138 133 - 147 MEQ/L [facility] Potassium 4.2 3.5 - 5.3 MEQ/L [facility] Chloride 101 96 - 112 MEQ/L [facility] Carbon Dioxide 28 20 - 32 MEQ/L [facility] Anion Gap 9 5 - 17 [facility] Calcium 9.0 8.4 - 10.5 mg/dL [facility] Glucose 282 (H) 70 - 100 mg/dL [facility] Protein Total Serum 7.4 6.0 - 8.2 g/dL [facility] Albumin 3.9 3.5 - 5.0 g/dL [facility] Alkaline Phosphatase 89 42 - 140 IU/L [facility] Alanine Aminotransferase 45 (H)Comment: ALT reference 0 - 34 IU/L [facility] changed on 03-01-2018 [facility] Aspartate 46 15 - 46 IU/L [facility] Bilirubin Total 0.4 0.2 [...] Phone Number [facility] [address] [facility] [place] [phone] [facility] [address] [facility], [place] [phone] [facility] * CBC and Diff (manual [...] Phone Number [facility] [address] [facility] [place] [address] [facility] [address] [facility] [place] [address] [facility] * XR Chest single view frontal (09/13/2018 10:35 AM) Impressions Performed At Bandlike opacity in the left midlung zone possibly LEVI reflecting scarring or atelectasis. No focal consolidation. READING SITE: [facility] Narrative Performed At Patient: ZOE BENÍTEZ Sex#:F # [id number] Jose#:[id number] Location:[facility] ED SED-27Accession#: [id number] Procedure Requested:[id number] XR CHEST SINGLE VIEW FRONTAL Reason for [...] Rad Results In - 09/13/2018 11:06 AM DICE DEALER Patient: ISIAH BENÍTEZ Sex#: F # 1950 Jose#: [id number] Location: [facility] ED SED- Procedure Requested: [id number] XR CHEST SINGLE VIEW FRONTAL Reason for [...] or atelectasis. No focal consolidation. READING SITE: [facility] Organization Address City/State/Zipcode Phone Number [facility] * Electrocardiogram (ECG) (09/13/2018 10:09 AM) QRSd 104 TRACEMASTER QT 412 TRACEMASTER QTC 448 TRACEMASTER ECGHR 71 TRACEMASTER ECGPR 152 TRACEMASTER Narrative Performed At [facility] ED Test Date:2018-09-13 Pat Name: ISIAH BENÍTEZDepartment: [facility] Room: SED Gender: Female Engine Builder: [id number] :1950 Requested By: CHAVA KELLY Order Number: [id number] MD: Measurements IntervalsAxis Rate: 71 P:46 AR: 152QRS:49 QRSD: 104T:56 QT: 412 QTc:448 Interpretive Statements SINUS RHYTHM Procedure Note Interface, External Ris In - 09/13/2018 4:34 PM DICE DEALER [facility] ED Test Date: 2018-09-13 Pat Name: ISIAH BENÍTEZ Department: ERS Room: SED Gender: Female Engine Builder: [id number] : 1950 Requested By: CHAVA KELLY Order Number: [id number] Reading MD: Measurements Intervals [place] Rate: 71 P: 46 AR: 152 QRS: 49 QRSD: 104 T: 56 QT: 412 QTc: 448 Interpretive Statements SINUS RHYTHM Performing Organization Address City/State/Zipcode Phone Number TRACEMASTER in this encounter Visit Diagnoses Diagnosis Acute chest pain - Primary Unspecified chest pain Administered Medications Medication Order MAR Action Action Date Dose Rate Site fentaNYL (SUBLIMAZE) injection 50 mcg Given 09/13/2018 50 mcg 50 mcg, Intravenous, Once, 09/13/18 10:43 DICE DEALER at 1027, For 1 dose, Administer over 2 minutes; max dose for IVP is 2 mcg/kg. Note: Limit does not apply to patients who may be tolerant to opioid therapy or on continuous IV or PO opiate therapy. iohexol (OMNIPAQUE) 350 mg iodine/mL Given 09/13/2018 77 mL injection 77 mL 13:17 DICE DEALER 77 mL, Intravenous, Once in imaging, contrast, Starting 09/13/18 at 1316, For 1 dose ketorolac (TORADOL) injection 15 mg Given 09/13/2018 15 mg 15 mg, Intravenous, Once, e 09/13/18 at 11:23 DICE DEALER 1114, For 1 dose oxyCODONE-acetaminophen (PERCOCET) 5-325 Given 09/13/2018 2 tablets mg 2 tablet 13:26 DICE DEALER 2 tablet, Oral, Once, e 09/13/18 at 1320, For 1 dose, Do not exceed 4 GM/DAY of acetaminophen. If 65 or older do not exceed 3 GM/DAY. If chronic alcoholic do not exceed 2 GM/DAY. in this encounter"
--- OUTSIDE RECORDS SUMMARY | 2018-11-20 14:06 | XMS REPORT | Encounter Summary ---
Author Author [facility] Organization [facility] Address Unknown Phone Unavailable Care Team Providers Care Police Investigator Name Role Phone Ebony Sharp MD PCP Reason for Visit * Diagnostic Imaging (Routine) Status Reason Specialty Diagnoses / Referred By Referred To Procedures Contact Contact Closed Radiology Diagnoses Ebony Sharp, [facility] MD [address] [facility] [address] [place] [place] [facility] [address] [address] [address], [place] Phone: Density Hip [address] Pelvis Spine Phone: Encounter Details Date Type Department Care Team Description 09/12/2018 Imaging [facility] Primary Care Ebony Sharp MD Appointment - [facility] [place] [address] [facility] [address] [facility] [address] [place] [address] [place], [place] [phone] Social History Tobacco Use Types Packs/Day Years [...] 09/12/2018 Healthcare maintenance PELVIS SPINE 3:16 PM SOCIAL SERVICES TECHNICIAN in this encounter Visit Diagnoses Not on filein this encounter
--- OUTSIDE RECORDS SUMMARY | 2018-11-20 14:06 | XMS REPORT | Encounter Summary ---
Author Author [facility] Organization [facility] Address Unknown Phone Unavailable Care Team Providers Care Dye Box Operator Name Role Phone Ebony Sharp MD PCP Reason for Visit * Reason Comments Pre-op Exam Bypass consult Encounter Details Date Type Department Care Team Description 09/06/2018 Initial consult [facility] Surgical Medardo Tate MD Morbid obesity due to Specialists [address] [facility] excess calories (HCC) [address] [facility] [address] (Primary Dx); [address] [place] [address] Type 2 [place] [address] with hyperglycemia, with [phone] long-term current use of insulin (HCC); Hyperlipidemia, [...] Taken Blood Pressure 166/98 09/06/2018 1:44 PM TRAILER PARK MANAGER Pulse 76 09/06/2018 1:44 PM TRAILER PARK MANAGER Temperature 36.9 C (98.4 F) 09/06/2018 1:44 PM TRAILER PARK MANAGER Respiratory Rate - - Oxygen Saturation - - Inhaled Oxygen - - Concentration Weight 106.6 kg (235 lb) 09/06/2018 1:44 PM TRAILER PARK MANAGER Height 156.2 cm (5' 1.5") 09/06/2018 1:44 PM TRAILER PARK MANAGER Body Mass Index 43.68 09/06/2018 1:44 PM TRAILER PARK MANAGER in this encounter Progress Notes * Medardo Tate MD - 09/06/2018 2:00 PM TRAILER PARK MANAGER Formatting of this note may be different from the original. [facility] Office Visit Patient: Caren Patten is a 68 y.o. female 1950 CSN: [id number] PCP: Ebony Sharp MD Referring physician: No [...] a personalized basis with recommendations from our hardware engineer HPI: Caren Patten is a 68 y.o. female who is being seen in consultation for bariatric surgery. She is known to me from a recent incisional hernia repair with mesh 3 months ago. Body mass index is 43.68 kg/m. Comorbidities are listed above. The patient has tried multiple diets, commercial and other, without manager long term care success, and would like to be considered [...] ARTHRODESIS ; Surgeon: Adelaida Olivas MD; Location: [facility] Main OR; Service: Orthopedics; Laterality: Left; REPAIR, INCISIONAL HERNIA, LAPAROSCOPIC, USING MESH N/A 05/25/2018 Procedure: LAPAROSCOPIC INCISIONAL HERNIA REPAIR WITH MESH; Surgeon: Medardo Tate MD; Location: [facility] Main OR; Service: General; Laterality: N/A; TONSILLECTOMY [...] Type Specialty Care Team Description 11/29/2018 [facility] General Surgery as of this encounter Visit Diagnoses Diagnosis Morbid obesity due to excess calories (HCC) - Primary Type 2 diabetes mellitus with hyperglycemia, 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) Hyperlipidemia, unspecified hyperlipidemia type Benign essential HTN SASHA on CPAP
--- OUTSIDE RECORDS SUMMARY | 2018-11-20 14:06 | XMS REPORT | Encounter Summary ---
Author Author [facility] Organization [facility] Address Unknown Phone Unavailable Care Team Providers Care Cardroom Worker Name Role Phone Ebony Sharp MD PCP Encounter Details Date Type Department Care Team Description 09/06/2018 Documentation [facility] Surgical TateMedardo pettit MD Specialists [address] [facility] [address] [facility] [address] [place] [address] [place] [address] [phone] Social History Tobacco Use Types Packs/Day Years [...]
--- OUTSIDE RECORDS SUMMARY | 2018-11-20 14:06 | XMS REPORT | Encounter Summary ---
Author Author [facility] Organization [facility] Address Unknown Phone Unavailable Care Team Providers Care Composition Professor Name Role Phone Ebony Sharp MD PCP Reason for Referral * Diagnostic Imaging (Routine) Status Reason Specialty Diagnoses / Referred By Referred To Procedures Contact Contact Canceled Radiology Diagnoses Ebony Sharp [facility] [address] [facility] [place] [address] [facility] [address] rocedures [address] [facility], [place] [address] screening w CAD [address] Phone: bilat [phone] * Diagnostic Imaging (Routine) Status Reason Specialty Diagnoses / Referred By Referred To Procedures Contact Contact Closed Radiology Diagnoses Ebony Sharp [facility] [address] [facility] [address] [facility] P [facility] [place], [place] rocedures [address] [id number] DEXA Bone [place], [place] Phone: Density Hip [phone] Pelvis Spine Phone: Reason for Visit * Reason Comments Follow-up 6 months Encounter Details Date Type Department Care Team Description 09/12/2018 Office Visit [facility] Primary [facility] Ebony Sharp MD Chronic obstructive - [facility] [address] [facility] pulmonary disease, [address] [facility] [address] unspecified COPD type [address] [place] [address] (HCC) (Primary Dx); [place]AM[place]A [place] [address] Hyperlipidemia, unspecified hyperlipidemia type; Benign essential HTN; [...] Taken Blood Pressure 150/80 09/12/2018 2:14 PM DRYING ROOM ATTENDANT Pulse 77 09/12/2018 2:14 PM DRYING ROOM ATTENDANT Temperature - - Respiratory Rate - - Oxygen Saturation 92% 09/12/2018 2:14 PM DRYING ROOM ATTENDANT Inhaled Oxygen - - Concentration Weight 106.6 kg (235 lb) 09/12/2018 2:14 PM DRYING ROOM ATTENDANT Height 156.2 cm (5' 1.5") 09/12/2018 2:14 PM DRYING ROOM ATTENDANT Body Mass Index 43.68 09/12/2018 2:14 PM DRYING ROOM ATTENDANT in this encounter Progress Notes * Ebony Sharp MD - 09/12/2018 2:30 PM DRYING ROOM ATTENDANT Formatting of this note may be different [...] Future Morbid obesity due to excess calories ([facility]) Healthcare maintenance - DEXA Bone Density Hip [...] 09/12/2018 Healthcare maintenance PELVIS SPINE 3:16 PM DRYING ROOM ATTENDANT in this encounter Results * Comprehensive Metabolic Panel (09/12/2018 3:22 PM) Sodium 139 133 - 147 MEQ/L [facility] Potassium 4.6 3.5 - 5.3 MEQ/L [facility] Chloride 99 96 - 112 MEQ/L [facility] Carbon Dioxide 34 (H) 20 - 32 MEQ/L [facility] Anion Gap 6 5 - 17 [facility] Calcium 9.9 8.4 - 10.5 mg/dL [facility] Glucose 253 (H) 70 - 100 mg/dL [facility] Protein Total Serum 7.3 6.0 - 8.2 g/dL [facility] Albumin 4.0 3.5 - 5.0 g/dL [facility] Alkaline Phosphatase 102 42 - 140 IU/L [facility] Alanine Aminotransferase 47 (H)Comment: ALT reference 0 - 34 IU/L [facility] range changed on 03-01-2018 [facility] Aspartate 45 15 - 46 IU/L [facility] Aminotransferase [facility] Bilirubin Total 0.2 0.2 - 1.3 mg/dL [facility] Blood Urea Nitrogen 16 7 - 26 mg/dL [facility] Creatinine 0.8 0.4 - 1.1 mg/dL [facility] eGFR Female AA 86 60 - 200 [facility] Comment: REG[facility]AL Chronic Kidney Disease less LABORATORIES than 60 mL/min/1.73 sq.m Kidney failure less than 15 mL/min/1.73 sq.m eGFR Female Non-AA 72 60 - 200 [facility] Comment: REG[facility]AL Chronic Kidney Disease less LABORATORIES than 60 mL/min/1.73 sq.m Kidney failure less than 15 mL/min/1.73 sq.m Specimen Blood Performing Organization Address [facility] Phone Number [address] [address] LABORATORIES * T4 Free (09/12/2018 3:22 PM) T4 Free 1.1 0.8 - 2.2 ng/dL [facility] Specimen Blood Performing Organization Address [facility] Phone Number [address] [phone] LAB[facility]ATORIES * Thyroid Stimulating Hormone (09/12/2018 3:22 PM) Thyroid Stimulating 0.04 (L) 0.47 - 4.68 uIU/mL [facility] Hormone [facility] Specimen Blood Performing Organization Address [facility] Phone Number [facility] [address] [place] [address] [phone] LABORATORIES * Microalbumin Random (09/12/2018 3:22 PM) Creatinine Urine Random 320.3 mg/dL [facility] Microalbumin mg/dl 12.10 mg/dL [facility] Microalbumin/Creatinine 37.78 (H) 0.00 - 30.00 ug/mg [facility] Ratio [facility] Specimen Urine Performing Organization Address [facility]/Zipcode Phone Number [facility] [address] [place] [address] LABORATORIES * Hemoglobin A1C (09/12/2018 3:22 PM) Hemoglobin A1C 11.6 (H) 4.0 - 5.6 % [facility] Comment: REGIONAL Non-diabetic LABORATORIES 4.0 - 5.6 % Prediabetes 5.7 - 6.4 % Diabetes >=6.5 % Specimen Blood Performing Organization Address City/[facility] Phone Number [facility] [address] [place] [address] LABORATORIES * DEXA Bone Density Hip Pelvis Spine (09/12/2018 3:16 PM) Narrative Performed At Performing Organization Address [facility] Phone Number MCKESSON in this encounter Visit Diagnoses Diagnosis Chronic obstructive pulmonary disease, unspecified COPD type ([facility]) - Primary Hyperlipidemia, unspecified hyperlipidemia type Benign essential HTN MATA (generalized anxiety disorder) Generalized anxiety disorder Type 2 diabetes mellitus with hyperglycemia, with long-term current use of insulin ([facility]) Morbid obesity due to excess calories ([facility]) Healthcare maintenance Hair loss Unspecified alopecia Acne vulgaris Other acne Hyperthyroidism Thyrotoxicosis without mention of goiter or other cause, without mention of thyrotoxic crisis or storm
--- OUTSIDE RECORDS SUMMARY | 2018-11-20 14:06 | XMS REPORT | Encounter Summary ---
Author Author [facility] Organization [facility] Address Unknown Phone Unavailable Care Team Providers Care Cement Tile Maker Name Role Phone Ebony Sharp MD PCP Encounter Details Date Type Department Care Team Description 09/13/2018 Procedure Pass [facility] [address] [facility], [place] [id number] Social History Tobacco Use Types Packs/Day Years [...]
--- OUTSIDE RECORDS SUMMARY | 2018-11-20 14:07 | XMS REPORT | Encounter Summary ---
Author Author [facility] Organization [facility] Address Unknown Phone Unavailable Care Team Providers Care Teachers Assistant Name Role Phone Ebony Sharp MD PCP Reason for Visit * Reason Comments Other Encounter Details Date Type Department Care Team Description 08/30/2018 Refill [facility] Primary Care Ebony Sharp MD Other - [facility] [place] [address] [facility] [address] [facility] [address] [place] [address] [place] [address] [phone] Social History Tobacco Use Types Packs/Day Years [...]
--- OUTSIDE RECORDS SUMMARY | 2018-11-20 14:07 | XMS REPORT | Encounter Summary ---
Author Author [facility] Organization [facility] Address Unknown Phone Unavailable Care Team Providers Care Life Skills Educator Name Role Phone Ebony Sharp MD PCP Reason for Visit * Reason Comments Other Encounter Details Date Type Department Care Team Description 08/25/2018 Refill [facility] Primary Care Ebony Sharp MD Other - [facility] [place] [address] [facility] [address] [facility] [address] [place] [address] [place] [address] [phone] Social History Tobacco Use Types Packs/Day Years [...]
--- OUTSIDE RECORDS SUMMARY | 2018-11-20 14:10 | XMS REPORT | Continuity of Care Document ---
Author Author [facility] Address Unknown Phone Unavailable Allergies Active Description Code Type Severity Reaction Onset Reported/Identified Relationship to Patient Clinical Status Yes Sulfa (Sulfonamide Antibiotics) [id number] Drug Allergy Unknown N/A 2006 Yes lisinopril [id number] Drug Allergy Unknown N/A 07/26/2014 Yes metformin [id number] Drug Allergy Unknown N/A 07/26/2014 Medications There [...] 02/21/2010 LAURIE LYLE MD 110.1 ONYCHOMYCOSIS 02/21/2010 LUARIE LYLE MD 250.00 DIABETES II CONTROLLED 02/21/2010 [...] MD 780.4 Dizziness And Vertigo 12/12/2010 VALDO PARTICK, LAURIE 380.4 Cerumen Impaction 12/12/2010 VALDO PATRICK, [...] MD 780.4 Dizziness And Vertigo 12/12/2010 VALDO APTRICK, LAURIE 380.4 Cerumen Impaction 12/12/2010 VALDO PATRICK, [...] Associated With Female Genital Organs 12/24/2011 LAURIE LYEL MD 627.9 Menopausal And Postmenopausal Disorder Unspecified [...] 575.9 Gallbladder Disease Unspec 03/11/2012 KAUR DO, RDAHA K 593.9 Renal Insufficiency 03/11/2012 VALDO PATRICK, [...] VALDO PATRICK, LAURIE Riley2.3 EDEMA 04/28/2012 VALDO PATRICK, LAURIE 782.3 EDEMA [...] LYDIA DO, CHEN K Ot 272.0 02/05/2014 LYDIA DO, CHEN K Ot 300.00 02/05/2014 LYDIA [...] 02/01/2015 JACKROLLY WORTHY DO Ot 799.02 02/25/2015 MOEDSTA BAUMANN [employer] APPLICATION DEVELOPER Ot V76.12 03/05/2015 MODESTA BAUMANN [employer] APPLICATION DEVELOPER Ot V76.12 03/11/2015 HERNAN PATRICK, JUNE T Ot 599.72 03/11/2015 HERNAN PATRICK, JUNE T Ot 782.62 03/11/2015 HERNAN PATRICK, JUNE T Ot 786.59 03/11/2015 HERNAN PATRICK, JUNE T Ot 793.11 Procedures Code Description [place] [address] A1C (IN-HOUSE) 05/04/2013 72379 MICRO ALBUMIN-IN HOUSE 05/04/2013 Hilario Lakhani 06/06/2013 38359 OXIMETRY 07/25/2013 J2930 SOLUMEDROL INJ 10/17/2013 35563 THERAPUTIC INJ SQ/IM 10/17/2013 33680 OXIMETRY 10/18/2013 96414 A1C (IN-HOUSE) 10/20/2013 39627 OXIMETRY 10/23/2013 51457 OXIMETRY 11/24/2013 98285 OXIMETRY 11/27/2013 41779 OXIMETRY 12/07/2013 43414 A1C (IN-HOUSE) 01/25/2014 53137 OXIMETRY 01/25/2014 68797 US VENOUS DOPPLER (DVT EVAL ) 03/01/2014 21083 OXIMETRY 03/20/2014 27533 A1C (IN-HOUSE) 05/15/2014 68981 ROUTINE VENIPUNCTURE 11/06/2014 57105 A1C (IN-HOUSE) 11/12/2014 Results There is no data. Encounters ACCT No. Visit Date/Time Discharge Status Pt. Type Provider Facility Loc./Unit Complaint [id number] 11/12/2014 08:46:00 11/12/2014 23:59:59 FELIPE Outpatient LAURIE LYLE MD [id number] 11/12/2014 08:46:00 11/12/2014 23:59:59 CLS Outpatient LAURIE LYLE MD [id number] 07/11/2014 07:02:00 07/11/2014 23:59:59 CLS Outpatient RADHA KAUR DO [id number] 06/18/2014 15:58:00 06/18/2014 23:59:59 CLS Outpatient LAURIE LYLE MD [id number] 05/15/2014 15:49:00 05/15/2014 23:59:59 FELIPE Outpatient LAURIE LYLE MD [id number] 05/15/2014 15:49:00 05/15/2014 23:59:59 CLS Outpatient LAURIE LYLE MD [id number] 03/01/2014 14:07:00 03/01/2014 23:59:59 FELIPE Outpatient LAURIE LYLE MD [id number] 03/01/2014 14:07:00 03/01/2014 23:59:59 FELIPE Outpatient RADHA KAUR DO [id number] 02/08/2014 15:16:00 02/08/2014 23:59:59 FELIPE Outpatient LAURIE LYLE MD [id number] 01/25/2014 15:56:00 01/25/2014 23:59:59 FELIPE Outpatient LAURIE LYLE MD [id number] 01/25/2014 15:56:00 01/25/2014 23:59:59 CLS Outpatient LAURIE LYLE MD [id number] 12/21/2013 15:54:00 12/21/2013 23:59:59 CLS Outpatient RADHA KAUR DO [id number] 12/07/2013 15:23:00 12/07/2013 23:59:59 CLS Outpatient LAURIE LYLE MD [id number] 11/27/2013 15:23:00 11/27/2013 23:59:59 CLS Outpatient LAURIE LYLE MD [id number] 11/27/2013 15:23:00 11/27/2013 23:59:59 CLS Outpatient LAURIE LYLE MD [id number] 11/24/2013 10:24:00 11/24/2013 23:59:59 CLS Outpatient LAURIE LYLE MD [id number] 10/30/2013 13:21:00 10/30/2013 23:59:59 CLS Outpatient LAURIE LYLE MD [id number] 10/20/2013 15:08:00 10/20/2013 23:59:59 CLS Outpatient LAURIE LYLE MD [id number] 10/20/2013 15:08:00 10/20/2013 23:59:59 CLS Outpatient LAURIE LYLE MD [id number] 07/25/2013 09:10:00 07/25/2013 23:59:59 CLS Outpatient LAURIE LYLE MD [id number] 06/05/2013 10:34:00 06/05/2013 23:59:59 CLS Outpatient LAURIE LYLE MD [id number] 05/04/2013 16:15:00 05/04/2013 23:59:59 CLS Outpatient LAURIE LYLE MD [id number] 05/04/2013 16:15:00 05/04/2013 23:59:59 CLS Outpatient LAURIE LYLE MD [id number] 03/11/2015 07:49:00 03/11/2015 12:17:00 DIS Emergency HERNAN PATRICK, JUNE Sandoval [facility] ER [id number] 02/01/2015 11:16:00 02/01/2015 23:59:59 CLS Outpatient MODESTA BAUMANN APRN [facility] RAD [id number] 07/26/2014 15:26:00 07/26/2014 23:59:59 CLS Outpatient ROLLY SANTIAGO DO [facility] RAD [id number] 04/10/2014 13:00:00 06/25/2014 00:01:00 DIS Outpatient LAURIE LYLE MD [facility] PUL [id number] 03/06/2014 13:00:00 03/14/2014 00:01:00 DIS Outpatient LAURIE LYLE MD [facility] PULM [id number] 03/01/2014 15:35:00 03/01/2014 23:59:59 CLS Outpatient LAURIE LYLE MD [facility] RAD [id number] 02/05/2014 08:14:00 02/05/2014 10:33:00 DIS Emergency CHEN FEREMAN DO [facility] ER [id number] 01/14/2014 14:08:00 01/14/2014 16:53:00 DIS Emergency KAYLENE SPRINGER MD [facility] ER [id number] 11/27/2013 16:23:00 11/28/2013 14:10:00 DIS Inpatient RADHA KAUR DO Via [address] [id number] 10/26/2013 07:13:00 10/28/2013 13:30:00 DIS Inpatient [id number] 07/05/2013 22:53:00 07/10/2013 15:02:00 DIS Inpatient [id number] 07/26/2014 16:20:00 Document Registration [id number] 06/26/2014 15:00:00 Document Registration [id number] 04/28/2012 16:44:00 Document Registration [id number] 09/27/2010 09:21:00 Document Registration [id number] 03/11/2015 07:50:16 ACT Document Registration [id number] 08/01/2018 08:25:00 08/01/2018 23:59:00 DIS Outpatient HILARIO THAO
--- NOTE | 2018-11-20 14:15 | NUR ---
See pt's meds
--- NOTE | 2018-11-20 14:30 | NUR ---
JACKELINISIAH admitted to room 407-1, with an admitting diagnosis of UTI, ABDOMINAL PAIN, INTRACTABLE NAUSEA AND VOMITING, on 11/20/18 from ED via WHEELCHAIR, accompanied by ED STAFF. ISIAH BENÍTEZ introduced to surroundings, call light, bed controls, phone, TV, temperature control, lights, meal times, smoking policy, visitor policy, side rail policy, bathrooms and showers. Patient Rights given to patient in the handbook. ISIAH BENÍTEZ verbalizes understanding that [facility] is not responsible for the loss or damage to any personal effects or valuables that are kept in the patients possession during their hospitalization. The following Patient Care Plans were discussed with the PATIENT: Discharge Planning, ABDOMINAL PAIN, URINARY TRACT INFECTION and KNOWLEDGE DEFICIT. ISIAH BENÍTEZ verbalizes understanding of Interdisciplinary Patient Education. Patient and/or family were informed about the Rapid Response Team and its purpose.
[2018-11-20] MEDS ORDERED: BIOT5000 PO (14:52)
[2018-11-20] MEDS ORDERED: AMLO2.5T4 PO (14:52)
[2018-11-20] MEDS ORDERED: GABA-488 PO (14:52)
[2018-11-20] MEDS ORDERED: SIMV20TA3 PO (14:52)
[2018-11-20] MEDS ORDERED: SPIR100T4 PO (14:52)
[2018-11-20] MEDS ORDERED: FLUT1BLS IH (14:52)
[2018-11-20 14:56] VITALS: BP 118/73
[2018-11-20] MEDS ORDERED: PROMETHAZINE INJ 25 MG/ML (PHENERGAN) AMP IV PRN (15:00)
[2018-11-20] MEDS ORDERED: KETOROLAC 15 MG/ML VIAL IV PRN (15:00)
[2018-11-20] MEDS ORDERED: ACETAMINOPHEN 500 MG TAB (TYLENOL) PO PRN (15:00)
[2018-11-20] MEDS ORDERED: CATHETER FLUSH 10 ML SYR IV PRN (15:00)
[2018-11-20] MEDS: fentaNYL INJECTION 100 MCG/2 ML AMP IV PRN ×4 (15:05→23:58)
[2018-11-20] MEDS ORDERED: PATIENT MAY USE OWN MEDS, ALL MC SCH (15:30)
[2018-11-20 15:54] VITALS: BP 140/71
[2018-11-20] MEDS: inSUlin ASPART (NovoLOG) 1 UNIT/0.01 ML (CHARGE PER UNIT) SC SCH ×2 (16:04→20:54)
[2018-11-20 17:36] VITALS: BP 146/96
[2018-11-20] MEDS ORDERED: RT-ALBUTEROL/IPRATROPIUM 3 ML (DUONEB) VIAL INH PRN (18:00)
[2018-11-20] MEDS: ONDANSETRON 4 MG/2 ML (SDV) Z0FRAN IV PRN (18:08)
[2018-11-20] MEDS ORDERED: RT-ALBUTEROL/IPRATROPIUM 3 ML (DUONEB) VIAL ONE (18:26)
[2018-11-20] MEDS: NS IV 1000 ML 1,000 ML IV SCH (18:40)
[2018-11-20] MEDS: RT-ALBUTEROL/IPRATROPIUM 3 ML (DUONEB) VIAL INH SCH (19:13)
[2018-11-20 19:43] VITALS: BP 112/69
[2018-11-20] MEDS: SPIRONOLACTONE 100 MG (ALDACTONE) TABLET PO SCH (20:50)
[2018-11-20] MEDS: METOPROLOL TARTRATE 100 MG TABLET PO SCH (20:50)
[2018-11-20] MEDS: SIMvastatin 20 MG (ZOCOR) TAB PO SCH (20:51)
[2018-11-20] MEDS: GABAPENTIN 300 MG (NEURONTIN) CAP PO SCH (20:52)
[2018-11-20] MEDS: AMITRIPTYLINE 25 MG (ELAVIL) TAB PO SCH (20:53)
[2018-11-20] MEDS ORDERED: INSULIN GLARGINE HUM REC ANLOG SQ SCH (21:00)
[2018-11-20] MEDS ORDERED: [UNRECOGNIZED DRUG - OTHER] SQ SCH (21:00)
[2018-11-20] MEDS ORDERED: meTOprolol TARTRATE 50 MG (LOPRESSOR) TAB PO SCH (21:00)
[2018-11-20] MEDS: HYDROcodone/APAP 5 MG/325 MG (LORTAB) TAB PO PRN (23:00)
[2018-11-21] VITALS: BP 126/60
[2018-11-21 04:00] VITALS: BP 128/64
[2018-11-21] MEDS: NS IV 1000 ML 1,000 ML IV SCH ×3 (04:15→22:26)
[2018-11-21] MEDS: fentaNYL INJECTION 100 MCG/2 ML AMP IV PRN ×7 (04:20→23:30)
[2018-11-21] MEDS: inSUlin ASPART (NovoLOG) 1 UNIT/0.01 ML (CHARGE PER UNIT) SC SCH ×4 (06:04→20:13)
[2018-11-21 06:08] LABS: BASOPHILS % (AUTO) 0 % (0-10); EOSINOPHILS # (AUTO) 0.3 10^3/uL (0.0-0.3); EOSINOPHILS % (AUTO) 4 % (0-10); HEMATOCRIT 38 % (35-52); HEMOGLOBIN 13.1 G/DL (11.5-16.0); LYMPHOCYTES # (AUTO) 2.6 X 10^3 (1.0-4.0); LYMPHOCYTES % (AUTO) 33 % (12-44); MEAN CORPUSCULAR HEMOGLOBIN 34 PG (25-34); MEAN CORPUSCULAR HGB CONC 34 G/DL (32-36); MEAN CORPUSCULAR VOLUME 99 FL (80-99); MEAN PLATELET VOLUME 9.8 FL (7.4-10.4); MONOCYTES # (AUTO) 0.8 X 10^3 (0.0-1.0); MONOCYTES % (AUTO) 10 % (0-12); NEUTROPHILS # (AUTO) 4.3 X 10^3 (1.8-7.8); NEUTROPHILS % (AUTO) 54 % (42-75); PLATELET COUNT 162 10^3/uL (130-400); RED CELL DISTRIBUTION WIDTH 14.1 % (10.0-14.5)
[2018-11-21 06:25] LABS: BUN/CREATININE RATIO 16; CALCIUM 8.7 MG/DL (8.5-10.1); CARBON DIOXIDE 20 MMOL/L (21-32); CHLORIDE 102 MMOL/L (98-107); CREATININE SERUM 1.05 MG/DL (0.60-1.30); GFR ESTIMATED > 60; GLUCOSE 191 MG/DL (70-105); POTASSIUM 4.4 MMOL/L (3.6-5.0); SODIUM 134 MMOL/L (135-145)
[2018-11-21] MEDS: RT-ALBUTEROL/IPRATROPIUM 3 ML (DUONEB) VIAL INH SCH ×3 (07:21→22:53)
[2018-11-21 08:00] VITALS: BP 135/68
[2018-11-21] MEDS: ASPIRIN E.C. 81 MG (ECOTRIN) TAB PO SCH (08:33)
[2018-11-21] MEDS: METOPROLOL TARTRATE 100 MG TABLET PO SCH ×2 (08:35→20:16)
[2018-11-21] MEDS: GABAPENTIN 300 MG (NEURONTIN) CAP PO SCH ×3 (08:36→20:14)
[2018-11-21] MEDS: SPIRONOLACTONE 100 MG (ALDACTONE) TABLET PO SCH ×2 (08:37→20:14)
[2018-11-21] MEDS: amLODIPine 2.5MG (NORVASC) TAB PO SCH (08:38)
[2018-11-21] MEDS: ONDANSETRON 4 MG/2 ML (SDV) Z0FRAN IV PRN (09:53)
[2018-11-21] MEDS: BREO ELLIPTA IH SCH (11:44)
[2018-11-21 12:00] VITALS: BP 114/68
[2018-11-21] MEDS ORDERED: cefTRIAXone 1,000 MG/SWFI 10 ML IV PUSH IV SCH ×2 (12:00)
[2018-11-21 16:00] VITALS: BP 123/87
[2018-11-21 20:00] VITALS: BP 117/86
[2018-11-21] MEDS: AMITRIPTYLINE 25 MG (ELAVIL) TAB PO SCH (20:16)
[2018-11-21] MEDS: SIMvastatin 20 MG (ZOCOR) TAB PO SCH (20:17)
[2018-11-22] VITALS: BP 101/64
[2018-11-22] MEDS: NS IV 1000 ML 1,000 ML IV SCH (02:11)
[2018-11-22] MEDS: fentaNYL INJECTION 100 MCG/2 ML AMP IV PRN ×2 (02:32→06:39)
[2018-11-22] MEDS: HYDROcodone/APAP 5 MG/325 MG (LORTAB) TAB PO PRN ×2 (04:26→11:46)
[2018-11-22] MEDS: inSUlin ASPART (NovoLOG) 1 UNIT/0.01 ML (CHARGE PER UNIT) SC SCH ×2 (06:43→11:45)
[2018-11-22] MEDS: BREO ELLIPTA IH SCH (06:55)
[2018-11-22] MEDS: RT-ALBUTEROL/IPRATROPIUM 3 ML (DUONEB) VIAL INH SCH ×2 (06:55→10:06)
[2018-11-22 07:25] VITALS: BP 125/67
[2018-11-22] MEDS: METOPROLOL TARTRATE 100 MG TABLET PO SCH (08:40)
[2018-11-22] MEDS: amLODIPine 2.5MG (NORVASC) TAB PO SCH (08:40)
[2018-11-22] MEDS: GABAPENTIN 300 MG (NEURONTIN) CAP PO SCH (08:42)
[2018-11-22] MEDS: SPIRONOLACTONE 100 MG (ALDACTONE) TABLET PO SCH (08:43)
[2018-11-22] MEDS: ASPIRIN E.C. 81 MG (ECOTRIN) TAB PO SCH (08:45)
--- NOTE | 2018-11-22 10:16 | History & Physical ---
History of Present Illness HPI/Chief Complaint Late entry for history and physical performed at 1015 a.m. on 11/22/18 due to confusion of who admitting and attending physician was to be CC: Abdominal pain HPI: This is a 68-year-old female who [facility] to [facility] whom I have taken care of in the past and whom she recognizes who now lives in [facility] and her primary care provider's there whom she sees on a regular basis who presented to the ER with abdominal pain and nausea. Entire workup revealed no significant dangerous pathology that she was deemed meeting criteria for observation for IV fluid supportive care antiemetics and close monitoring. Rocephin was initiated empirically and urine culture had 3 isolated indicating contamination so that will not be continued at discharge. At this current time patient is able to eat having no nausea and overall ready to go home. Source: patient Exam Limitations: no limitations Date Seen 11/22/18 Time Seen by a Provider: 10:30 Attending Physician Herlinda Gregory MD PCP Omar Queen MD Referring Physician Date of Admission Nov 20, 2018 at 13:45 Home Medications & Allergies Home Medications Reviewed patient Home Medication Reconciliation performed by pharmacy medication reconciliations body art technician and/or nursing. Patients Allergies have been reviewed. Allergies Allergies Coded Allergies Sulfa (Sulfonamide Antibiotics) (Verified Allergy, Unknown, 11/26/06) lisinopril (Verified Allergy, Unknown, 07/26/14) metformin (Verified Allergy, Unknown, 07/26/14) Past Qkbcoob-Zqbxyo-Iuhfuy Hx Past Med/Social Hx: Reviewed Nursing Past Med/Soc Hx, Reviewed and Corrections made Patient Social History Marrital Status: single Alcohol Use: Denies Use Recreational Drug Use: No Smoking Status: Never a Smoker Type Used: Cigarettes Recent Foreign Travel: No Contact w/other who traveled: No Recent Hopitalizations: No Recent Infectious Disease Expo: No Immunizations Up To Date Tetanus Booster (TDap): Less than 5yrs Pediatric: No Date of Pneumonia Vaccine: Aug 25, 2013 Date of Influenza Vaccine: May 22, 2018 Past Medical History Surgeries: Eye Surgery, Gallbladder, Hysterectomy, Orthopedic Cardiac: Hypertension Neurological: Neuropathy Reproductive: Yes (hysterectomy) Sexually Transmitted Disease: No HIV/AIDS: No Hysterectomy Genitourinary: Renal Failure Gastrointestinal: Ulcer Musculoskeletal: Arthritis, Back Injury, Chronic Back Pain Endocrine: Diabetes, Insulin dep Are Your Blood Sugars Over 250: No HEENT: Cataract Loss of Vision: Left Psychosocial: Eating Disorder, Sleep Difficulties, Anxiety, Depression History of Blood Disorders: No Adverse Reaction to Blood [place]: No Family History Alcoholism 09 SISTER 09 SISTER Cancer 03 MOTHER Cataract 09 SISTER Family history: Cardiovascular disease 09 BROTHER (HEART ATTACK) Family history: Diabetes mellitus 09 SISTER Family history: Glaucoma 09 SISTER 09 SISTER Family history: Hypertension 09 BROTHER 09 BROTHER 09 BROTHER Family history: Osteoporosis 09 SISTER 09 SISTER Kidney disease 09 SISTER Seizure disorder Stroke 09 BROTHER No Family History of: Abdominal aortic aneurysm Cancer of colon Chest pain Congenital heart disease Congestive heart failure Cystic fibrosis Dementia Dysphagia Family history: Allergy Family history: Alzheimer's disease Family history: Arthritis Family history: Breast disease Family history: Coronary thrombosis Family history: Gastrointestinal disease Headache Hearing loss Heart disease Hereditary disease History of - anemia History of - disorder History of - respiratory disease History of drug abuse Human immunodeficiency virus (HIV) seropositivity Hypercholesterolemia Infertile Malignant neoplasm of lung Myocardial infarction Parkinson's disease Prostate cancer Psychotic disorder Tuberculosis Visual impairment Heart Disease, Cancer, CVA, Diabetes Review of Systems Constitutional: see HPI EENTM: no symptoms reported Respiratory: no symptoms reported Cardiovascular: no symptoms reported Gastrointestinal: loss of appetite, nausea, vomiting Musculoskeletal: no symptoms reported Skin: no symptoms reported Psychiatric/Neurological: No Symptoms Reported All Other Systems Reviewed Negative Unless Noted: Yes Physical Exam Physical Exam Vital Signs Vital Signs - First Documented 11/20/18 11/20/18 11/20/18 10:52 17:35 17:36 Temp 96.2 Pulse 79 Resp 15 B/P (MAP) 146/96 (113) Pulse Ox 92 O2 Delivery Room Air O2 Flow Rate 2.00 FiO2 21 Capillary Refill : Less Than 3 Seconds Height, Weight, BMI Height: 5'0.00" Weight: 220lbs. 0.3oz. 99.116079vp; 43.0 BMI Method:Stated General Appearance: No Apparent Distress, WD/WN, Chronically ill, Obese HEENT: PERRL/EOMI, TMs Normal, Normal ENT Inspection, Pharynx Normal Neck: Full Range of Motion, Normal Inspection, Non Tender, Supple, Carotid Bruit Respiratory: Chest Non Tender, Lungs Clear, Normal Breath Sounds, No Accessory Muscle Use, No Respiratory Distress Cardiovascular: Regular Rate, Rhythm, No Edema, No Gallop, No JVD, No Murmur, Normal Peripheral Pulses Gastrointestinal: Normal Bowel Sounds, No Organomegaly, No Pulsatile Mass, Non Tender, Soft Back: Normal Inspection, No CVA Tenderness, No Vertebral Tenderness Extremity: Normal Capillary Refill, Normal Inspection, Normal Range of Motion, Non Tender, No Calf Tenderness, No Pedal Edema Neurologic/Psychiatric: Alert, Oriented x3, No Motor/Sensory Deficits, Normal Mood/Affect Skin: Normal Color, Warm/Dry Lymphatic: No Adenopathy Results Results/Procedures Labs Laboratory Tests 11/20/18 11:36 11/21/18 05:23 Patient resulted labs reviewed. Assessment/Plan Admission Diagnosis Assessment: Generalized abdominal pain Nausea and vomiting Obesity Diabetes mellitus Hypertension Abnormal urinalysis urine culture shows contaminant Plan: Discharge home No antibiotics needed Primary care provider in [place] Admission Status: Observation Diagnosis/Problems Diagnosis/Problems (1) Abdominal pain Status: Acute Qualifiers: Abdominal location: generalized Qualified Codes: R10.84 - Generalized abdominal pain (2) Abnormal urinalysis Status: Acute (3) HTN Status: Acute Clinical Quality Measures DVT/VTE Risk/Contraindication: Risk Factor Score Per Nursin RFS Level Per Nursing on Admit: 3=High SARAH BAL DO Nov 22, 2018 10:15
[2018-11-22] MEDS ORDERED: ACHD5005 PO (10:34)
== END 2018-11-22 11:55 | disposition home or self-care (01) ==
LOC: EDUNIT# 10:21 → ER 10:23 → 4TH 13:45
PROVIDERS: ADMIT Family Medicine; ATTEND Family Medicine
DX: R11.2 Nausea with vomiting, unspecified (principal); R10.84 Generalized abdominal pain; E66.9 Obesity, unspecified; E11.40 Type 2 diabetes mellitus with diabetic neuropathy, unspecified; I10 Essential (primary) hypertension; Z79.4 Long term (current) use of insulin; F41.9 Anxiety disorder, unspecified; F32.9 Major depressive disorder, single episode, unspecified; M19.91 Primary osteoarthritis, unspecified site; N19 Unspecified kidney failure; J44.9 Chronic obstructive pulmonary disease, unspecified; Z88.2 Allergy status to sulfonamides; Z79.899 Other long term (current) drug therapy; Z68.41 Body mass index [BMI] 40.0-44.9, adult
CPT/HCPCS: 36415; 74176; 80048; 80053; 81000; 82962; 83735; 85025; 87088; 94640; 94760; 96361; 96365; 96375; 96376

== ENCOUNTER 2019-06-06 15:03 | Emergency (ER) | payer MEDICARE ==
[~2019-06-06] VITALS: Ht 152 cm; Wt 101.6 kg
[~2019-06-06 15:03] MED LIST changes: +ACHD5005 PO; +AMLO2.5T4 PO; +BIOT5000 PO; +FLUT1BLS IH; +GABA-488 PO; +SPIR100T4 PO
[2019-06-06 17:02] LABS: BILIRUBIN,URINE NEGATIVE (NEGATIVE); CLARITY,URINE CLEAR; COLOR,URINE YELLOW; GLUCOSE, URINE (UA) 4+ (NEGATIVE); KETONES,URINE 1+ (NEGATIVE); LEUKOCYTE ESTERASE ,URINE 3+ (NEGATIVE); NITRITE,URINE NEGATIVE (NEGATIVE); PH,URINE 6 (5-9); PROTEIN,URINE 1+ (NEGATIVE); UROBILINOGEN,URINE NORMAL (NORMAL)
--- NOTE | 2019-06-06 17:20 | NUR ---
LAB CONTACTED ABOUT BLOOD NOT BEING RAN YET
[2019-06-06 17:33] LABS: BASOPHILS # (AUTO) 0.1 10^3/uL (0.0-0.1); BASOPHILS % (AUTO) 1 % (0-10); EOSINOPHILS # (AUTO) 0.4 10^3/uL (0.0-0.3); EOSINOPHILS % (AUTO) 4 % (0-10); HEMATOCRIT 45 % (35-52); HEMOGLOBIN 14.9 G/DL (11.5-16.0); LYMPHOCYTES # (AUTO) 2.7 X 10^3 (1.0-4.0); LYMPHOCYTES % (AUTO) 29 % (12-44); MEAN CORPUSCULAR HEMOGLOBIN 33 PG (25-34); MEAN CORPUSCULAR HGB CONC 33 G/DL (32-36); MEAN CORPUSCULAR VOLUME 99 FL (80-99); MONOCYTES # (AUTO) 0.8 X 10^3 (0.0-1.0); MONOCYTES % (AUTO) 9 % (0-12); NEUTROPHILS # (AUTO) 5.4 X 10^3 (1.8-7.8); NEUTROPHILS % (AUTO) 58 % (42-75); PLATELET COUNT 194 10^3/uL (130-400); RED CELL DISTRIBUTION WIDTH 13.6 % (10.0-14.5); WHITE BLOOD COUNT 9.3 10^3/uL (4.3-11.0)
[2019-06-06 17:35] LABS: BACTERIA,URINE FEW /HPF
[2019-06-06] MEDS ORDERED: NS IV 1000 ML 1,000 ML IV ONE (17:37)
[2019-06-06] MEDS ORDERED: ONDANSETRON 4 MG/2 ML (SDV) Z0FRAN IVP ONE (17:45)
[2019-06-06] MEDS ORDERED: KETOROLAC 30 MG/ML VIAL IVP ONE (17:45)
--- NOTE | 2019-06-06 17:55 | NUR ---
LAB IN ROOM DRAWING BLOOD AT THIS TIME.
--- NOTE | 2019-06-06 17:59 | NUR ---
PT'S SISTER CALLED TO CHECK ON HER. WITH PT'S PERMISSION I DISCUSSED HOW THE PT WAS DOING WITH HER.
--- NOTE | 2019-06-06 18:21 | NUR ---
PT REPORTS PAIN IS NOT BETTER. DR BECERRA NOTIFIED.
[2019-06-06 18:24] LABS: ALANINE AMINOTRANSFERASE 50 U/L (0-55); ALKALINE PHOSPHATASE 104 U/L (40-136); BILIRUBIN,TOTAL 0.2 MG/DL (0.1-1.0); BUN/CREATININE RATIO 12; CALCIUM 9.1 MG/DL (8.5-10.1); CARBON DIOXIDE 28 MMOL/L (21-32); CHLORIDE 101 MMOL/L (98-107); CREATININE SERUM 0.91 MG/DL (0.60-1.30); GFR ESTIMATED > 60; GLUCOSE 194 MG/DL (70-105); POTASSIUM 4.2 MMOL/L (3.6-5.0); SODIUM 138 MMOL/L (135-145); TOTAL PROTEIN 7.5 GM/DL (6.4-8.2)
[2019-06-06] MEDS ORDERED: fentaNYL INJECTION 100 MCG/2 ML AMP IVP ONE (18:30)
--- NOTE | 2019-06-06 18:49 | Diagnostic Imaging Report ---
EXAMINATION: Supine abdomen at 0616 hours. INDICATION: Abdominal pain, burning. FINDINGS: Two supine films were obtained. The CT abdomen/pelvis exam of 11/20/2018 noted a 17 x 15 mm irregular shaped calcification in the inferior pole of the left kidney. That finding is again evident and does not seem to have changed significantly. This calcification now measures 10 x 19 mm. There do appear be a few small calcifications low in the pelvis on the left. The previous exam did show a few small phleboliths in this area. There is also small calcification low in the pelvis on the right. This may have been present on the prior exam as well. There are no pathological calcifications overlying the right kidney. There is gas in both the large and small bowel in a nonspecific fashion. There is no sign of a bowel obstruction. There is no mass, organomegaly or pathological calcification evident. There does appear to be severe degenerative disc and bony disease at L4-L5. There is no acute bony abnormality noted. IMPRESSION: 1. The large intrarenal calculus within the left kidney seen previously is again evident and does not appear to have changed significantly. The calcifications al the pelvis may be secondary to phleboliths. 2. If there is clinical concern regarding obstruction of the left kidney, then CT of the abdomen and pelvis would be recommended for further study. Dictated by: Dictated on workstation # [id number]
[2019-06-06] MEDS ORDERED: cefTRIAXone FOR IV USE 1,000 MG in WATER (STERILE) FOR INJECTION 10 ML IV ONE (19:00)
[2019-06-06] MEDS ORDERED: CEPH-507 PO (19:07)
[2019-06-06] MEDS ORDERED: ACHD5005 PO (19:07)
--- NOTE | 2019-06-06 19:07 | ED Abdominal Pain ---
General Chief Complaint: - Urinary Stated Complaint: POSSIBLE KIDNEY STONE/UTI Nursing Triage Note: Patient ambulatory to ER with complaint of burning with urination and frequency. Patient states the burning began last night. Patient was seen last week at [facility] and told she had a left kidney stone. Sepsis Screen: No Definite Risk Source of Information: Patient, Old Records Exam Limitations: No Limitations History of Present Illness Date Seen by Provider: Jun 06, 2019 Time Seen by Provider: 15:22 Initial Comments This 68-year-old woman presents to the emergency room with left flank and abdominal pain over the past 3-4 days. She has known history of a large stone in the left kidney which was identified by CT scan at [facility] about one month ago. She is in town visiting her sister. She reports some mild urinary incontinence. She was prescribed antibiotics during her visit at the [facility] ER a month ago and finished those about 10 days ago. She has not followed up with a primary care provider or a urologist. Her primary care providers Dr. Sharp. Allergies and Home Medications Allergies Coded Allergies: Sulfa (Sulfonamide Antibiotics) (Verified Allergy, Unknown, 11/26/06) lisinopril (Verified Allergy, Unknown, 07/26/14) metformin (Verified Allergy, Unknown, 07/26/14) Home Medications Albuterol 8.5 Gm Hfa.aer.ad, 2 PUFF IH Q4H PRN for SHORTNESS OF BREATH, (Reported) NEEDED FOR SHORTNESS OF BREATH Albuterol Sulfate/Ipratropium 3 Ml Solution, 3 ML IH Q4H PRN for SHORTNESS OF BREATH, (Reported) NEEDED FOR SHORTNESS OF BREATH Amitriptyline Hcl 25 Mg Tablet, 25 MG PO HS, (Reported) Amlodipine Besylate 2.5 Mg Tablet, 2.5 MG PO DAILY, (Reported) Aspirin 81 Mg Tabec, 81 MG PO DAILY, (Reported) Biotin 5,000 Mcg Tab.rapdis, 5,000 MCG PO DAILY, (Reported) Cephalexin 500 Mg Capsule, 500 MG PO TID Prescribed by: JUNE DIANA on 06/06/191906 Citalopram Hydrobromide 20 Mg Tab, 20 MG PO DAILY, (Reported) Fluticasone/Vilanterol 1 Each Blst.w.dev, 1 EACH IH DAILY, (Reported) Gabapentin 300 Mg Capsule, 600 MG PO TID, (Reported) Hydrocodone Bit/Acetaminophen 1 Tab Tab, 1 TAB PO Q6H PRN for PAIN-MODERATE TO SEVERE Prescribed by: SARAH BAL on 11/22/18 1034 Hydrocodone Bit/Acetaminophen 1 Tab Tab, 1 EACH PO Q4-6HR PRN for PAIN-MODERATE Prescribed by: JUNE DIANA on 06/06/191906 Insulin Glargine,Hum.rec.anlog 100 Unit/1 Ml Vial, 15 UNITS SQ HS, (Reported) Metoprolol Tartrate 100 Mg Tablet, 100 MG PO BID, (Reported) WITH MEALS Ondansetron 4 Mg Tab.rapdis, 4 MG SL Q4H Prescribed by: JUNE DIANA on 06/06/191907 Simvastatin 20 Mg Tablet, 20 MG PO HS, (Reported) Spironolactone 100 Mg Tablet, 100 MG PO BID, (Reported) Patient Home Medication List Home Medication List Reviewed: Yes Review of Systems Review of Systems Constitutional: no symptoms reported; No fever EENTM: No Symptoms Reported Respiratory: No Symptoms Reported Cardiovascular: No Symptoms Reported Gastrointestinal: See HPI Genitourinary: See HPI Musculoskeletal: no symptoms reported Skin: no symptoms reported Psychiatric/Neurological: No Symptoms Reported Endocrine: No Symptoms Reported Hematologic/Lymphatic: No Symptoms Reported Past Zvpnhcy-Mpycge-Fbitqv Hx Past Med/Social Hx: Reviewed and Corrections made Patient Social History Alcohol Use: Occasionally Uses Recreational Drug Use: No Smoking Status: Former Smoker Type Used: Cigarettes Recent Foreign Travel: No Contact w/Someone Who Travel: No Recent Infectious Disease Expo: No Recent Hopitalizations: No Immunizations Up To Date Tetanus Booster (TDap): Less than 5yrs PED Vaccines UTD: No Date of Pneumonia Vaccine: Aug 25, 2013 Date of Influenza Vaccine: May 22, 2018 Past Medical History Surgeries: Yes Eye Surgery, Gallbladder, Hysterectomy, Orthopedic Respiratory: Yes Pneumonia, COPD (uses supplemental oxygen by nasal cannula) Cardiac: Yes (history of angioedema) Hypertension Neurological: Yes Neuropathy Reproductive Disorders: Yes (hysterectomy) 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 Sexually Transmitted Disease: No HIV/AIDS: No Genitourinary: Yes Kidney Stones, Renal Failure Gastrointestinal: Yes Ulcer Musculoskeletal: Yes Arthritis, Back Injury, Chronic Back Pain Endocrine: Yes Diabetes, Insulin dep HEENT: Yes Cataract Loss of Vision: Left Cancer: No Psychosocial: Yes Eating Disorder, Sleep Difficulties, Anxiety, Depression Integumentary: No Blood Disorders: No Adverse Reaction/Blood Tranf: No Family Medical History Alcoholism 09 SISTER 09 SISTER Cancer 03 MOTHER Cataract 09 SISTER Family history: Cardiovascular disease 09 BROTHER (HEART ATTACK) Family history: Diabetes mellitus 09 SISTER Family history: Glaucoma 09 SISTER 09 SISTER Family history: Hypertension 09 BROTHER 09 BROTHER 09 BROTHER Family history: Osteoporosis 09 SISTER 09 SISTER Kidney disease 09 SISTER Seizure disorder Stroke 09 BROTHER No Family History of: Abdominal aortic aneurysm Cancer of colon Chest pain Congenital heart disease Congestive heart failure Cystic fibrosis Dementia Dysphagia Family history: Allergy Family history: Alzheimer's disease Family history: Arthritis Family history: Breast disease Family history: Coronary thrombosis Family history: Gastrointestinal disease Headache Hearing loss Heart disease Hereditary disease History of - anemia History of - disorder History of - respiratory disease History of drug abuse Human immunodeficiency virus (HIV) seropositivity Hypercholesterolemia Infertile Malignant neoplasm of lung Myocardial infarction Parkinson's disease Prostate cancer Psychotic disorder Tuberculosis Visual impairment Heart Disease, Cancer, CVA, Diabetes Physical Exam Vital Signs Vital Signs - First Documented 06/06/19 06/06/19 15:21 17:00 Temp 35.0 Pulse 77 Resp 20 B/P (MAP) 157/109 (125) Pulse Ox 95 O2 Delivery Room Air O2 Flow Rate 2.00 Capillary Refill : Less Than 3 Seconds Height/Weight/BMI Height: 5'0.00" Weight: 220lbs. 0.3oz. 99.527424tn; 43.00 BMI Method:Stated General Appearance: WD/WN, no apparent distress, obese HEENT: PERRL/EOMI, normal ENT inspection Neck: normal inspection Respiratory: lungs clear, normal breath sounds, no respiratory distress, no accessory muscle use Cardiovascular: regular rate, rhythm, no edema, no murmur Gastrointestinal: normal bowel sounds, soft, tenderness (left abdomen) Extremities: normal inspection, no pedal edema Neurologic/Psychiatric: director microbiology II-XII nml as tested, no motor/sensory deficits, alert, normal mood/affect, oriented x 3 Skin: normal color, warm/dry Progress/Results/Core Measures Results/Orders Lab Results Laboratory Tests Test 06/06/19 16:54 06/06/19 17:00 06/06/19 18:00 Range/Units Urine Color YELLOW Urine Clarity CLEAR Urine pH 6 5-9 Urine Specific [place] 1.020 1.016-1.022 Urine Protein 1+ H NEGATIVE Urine Glucose (UA) 4+ H NEGATIVE Urine Ketones 1+ H NEGATIVE Urine Nitrite NEGATIVE NEGATIVE Urine Bilirubin NEGATIVE NEGATIVE Urine Urobilinogen NORMAL NORMAL MG/DL Urine Leukocyte Esterase 3+ H NEGATIVE Urine RBC (Auto) 2+ H NEGATIVE Urine RBC 2-5 H /HPF Urine WBC 10-25 H /HPF Urine Crystals NONE /LPF Urine Bacteria FEW H /HPF Urine Casts NONE /LPF Urine Mucus NEGATIVE /LPF Urine Culture Indicated YES White Blood Count 9.3 4.3-11.0 10^3/uL Red Blood Count 4.58 4.35-5.85 10^6/uL Hemoglobin 14.9 11.5-16.0 G/DL Hematocrit 45 35-52 % Mean Corpuscular Volume 99 80-99 FL Mean Corpuscular Hemoglobin 33 25-34 PG Mean Corpuscular Hemoglobin Concent 33 32-36 G/DL Red Cell Distribution Width 13.6 10.0-14.5 % Platelet Count 194 130-400 10^3/uL Mean Platelet Volume 10.0 7.4-10.4 FL Neutrophils (%) (Auto) 58 42-75 % Lymphocytes (%) (Auto) 29 12-44 % Monocytes (%) (Auto) 9 0-12 % Eosinophils (%) (Auto) 4 0-10 % Basophils (%) (Auto) 1 0-10 % Neutrophils # (Auto) 5.4 1.8-7.8 X 10^3 Lymphocytes # (Auto) 2.7 1.0-4.0 X 10^3 Monocytes # (Auto) 0.8 0.0-1.0 X 10^3 Eosinophils # (Auto) 0.4 H 0.0-0.3 10^3/uL Basophils # (Auto) 0.1 0.0-0.1 10^3/uL Sodium Level 138 135-145 MMOL/L Potassium Level 4.2 3.6-5.0 MMOL/L Chloride Level 101 98-107 MMOL/L Carbon Dioxide Level 28 21-32 MMOL/L Anion Gap 9 5-14 MMOL/L Blood Urea Nitrogen 11 7-18 MG/DL Creatinine 0.91 0.60-1.30 MG/DL Estimat Glomerular Filtration Rate > 60 BUN/Creatinine Ratio 12 Glucose Level 194 H 70-105 MG/DL Calcium Level 9.1 8.5-10.1 MG/DL Corrected Calcium 9.1 8.5-10.1 MG/DL Total Bilirubin 0.2 0.1-1.0 MG/DL Aspartate Amino Transf (AST/SGOT) 39 H 5-34 U/L Alanine Aminotransferase (ALT/SGPT) 50 0-55 U/L Alkaline Phosphatase 104 40-136 U/L Total Protein 7.5 6.4-8.2 GM/DL Albumin 4.0 3.2-4.5 GM/DL Micro Results Microbiology 06/06/19 Urine Culture - Final, Complete 3 or more isolates My Orders Orders - JUNE BECERRA MD Cbc With Automated Diff (06/06/19:) Comprehensive Metabolic Panel (06/06/19:) Ua Culture If Indicated (06/06/19:) Ed Iv/Invasive Line Start (06/06/19 15:) Urine Culture (06/06/19 16:54) Ns Iv 1000 Ml (Sodium Chloride 0.9%) (06/06/19 17:37) Ketorolac Injection (Toradol Injection) (06/06/19 17:45) Ondansetron Injection (Zofran Injectio (06/06/19 17:45) Abdomen/Kub 1view (06/06/19 17:41) Fentanyl Injection (Sublimaze Injection (06/06/19 18:30) Ceftriaxone For Iv Use (Rocephin For I (06/06/19 19:00) Medications Given in ED Vital Signs/I&O 06/06/19 06/06/19 06/06/19 15:21 17:00 19:32 Temp 35.0 35.0 Pulse 77 70 Resp 20 18 B/P (MAP) 157/109 (125) 148/99 (125) Pulse Ox 95 97 O2 Delivery Room Air Nasal Cannula Nasal Cannula O2 Flow Rate 2.00 2.00 Blood Pressure Mean: 125 Progress Progress Note : Progress Note Patient's workup again revealed urinary tract infection for which she was given Rocephin. X-ray revealed a large left renal stone which seems unchanged from prior CT scan in October. Pain was treated with Toradol followed by fentanyl. I discussed the necessity of follow-up with a urologist. Patient seemed to understand and was agreeable to pursuing a urology consultation. A liter of IV fluid was also infused during her stay. Diagnostic Imaging Diagonstic Imaging: Xray Plain Films/CT/US/NM/MRI: abdomen, pelvis Comments KUB viewed by me and report reviewed. See report below: NAME: ISIAH GARCIA REC#: [id number] PT STATUS: REG ER : 1950 PHYSICIAN: JUNE BECERRA MD ADMIT DATE: 06/06/19/ER Draft Date of Exam:06/06/19 ABDOMEN/KUB 1VIEW EXAMINATION: Supine abdomen at 0616 hours. INDICATION: Abdominal pain, burning. FINDINGS: Two supine films were obtained. The CT abdomen/pelvis exam of 11/20/2018 noted a 17 x 15 mm irregular shaped calcification in the inferior pole of the left kidney. That finding is again evident and does not seem to have changed significantly. This calcification now measures 10 x 19 mm. There do appear be a few small calcifications low in the pelvis on the left. The previous exam did show a few small phleboliths in this area. There is also small calcification low in the pelvis on the right. This may have been present on the prior exam as well. There are no pathological calcifications overlying the right kidney. There is gas in both the large and small bowel in a nonspecific fashion. There is no sign of a bowel obstruction. There is no mass, organomegaly or pathological calcification evident. There does appear to be severe degenerative disc and bony disease at L4-L5. There is no acute bony abnormality noted. IMPRESSION: 1. The large intrarenal calculus within the left kidney seen previously is again evident and does not appear to have changed significantly. The calcifications along the pelvis may be secondary to phleboliths. 2. If there is clinical concern regarding obstruction of the left kidney, then CT of the abdomen and pelvis would be recommended for further study. Dictated on workstation # [id number] Dict: 06/06/191840 Trans: 06/06/191847 [facility] [id number] Interpreted by: ALIYAH KRAUSE MD Departure Impression Primary Impression: Left renal stone Additional Impression: Urinary tract infection Qualified Codes: N39.0 - Urinary tract infection, site not specified Disposition: HOME, SELF-CARE Condition: Improved Departure-Patient Inst. Decision time for Depature: 19:03 Referrals: NO,LOCAL PHYSICIAN (PCP) Primary Care Physician MONO QUIÑONEZ MD Patient Instructions: Urinary Tract Infection, Adult (DC), Kidney Stones in Adults Add. Discharge Instructions: Drink plenty of clear liquids. Complete your antibiotics as prescribed. Use your pain medications as prescribed. Follow-up with a urologist such as Dr. Quiñonez as soon as possible. Return to the emergency room if you have worsening symptoms. All discharge instructions reviewed with patient and/or family. Voiced understanding. Scripts Ondansetron (Ondansetron Odt) 4 Mg Tab.rapdis 4 MG SL Q4H, #10 TAB Prov: JUNE BECERRA MD 06/06/19 Hydrocodone Bit/Acetaminophen (Hydrocodone/Acetaminophen 5/325mg Tablet) 1 Tab Tab 1 EACH PO Q4-6HR PRN for PAIN-MODERATE MDD 10, #10 TAB Prov: JUNE BECERRA MD 06/06/19 Cephalexin (Keflex) 500 Mg Capsule 500 MG PO TID, #30 CAP Prov: JUNE BECERRA MD 06/06/19 JUNE BECERRA MD Jun 06, 2019 19:07
[2019-06-06] MEDS ORDERED: ONDA4TAB11 SL (19:08)
[2019-06-06 19:32] VITALS: BP 148/99
== END 2019-06-06 19:32 | disposition home or self-care (01) ==
LOC: EDUNIT# 15:03 → ER 15:08
DX: N20.0 Calculus of kidney (principal); N39.0 Urinary tract infection, site not specified; J44.9 Chronic obstructive pulmonary disease, unspecified; I10 Essential (primary) hypertension; E11.40 Type 2 diabetes mellitus with diabetic neuropathy, unspecified; F41.9 Anxiety disorder, unspecified; F32.9 Major depressive disorder, single episode, unspecified; Z88.2 Allergy status to sulfonamides; Z88.8 Allergy status to other drugs, medicaments and biological substances; Z79.82 Long term (current) use of aspirin; Z79.51 Long term (current) use of inhaled steroids; Z79.4 Long term (current) use of insulin; Z87.891 Personal history of nicotine dependence; Z90.710 Acquired absence of both cervix and uterus; Z82.49 Family history of ischemic heart disease and other diseases of the circulatory system
CPT/HCPCS: 36415; 74018; 80053; 81000; 85025; 87088

== ENCOUNTER 2019-11-28 18:17 | Emergency (ER) | payer MEDICARE ==
[~2019-11-28] VITALS: Ht 154.9 cm; Wt 95.3 kg
[~2019-11-28 18:17] MED LIST changes: +CEPH-507 PO; +ONDA4TAB11 SL; +SIMV20TA26 PO
[2019-11-28] MEDS ORDERED: NS IV 1000 ML 1,000 ML IV ONE (18:33)
--- NOTE | 2019-11-28 18:43 | ED Hip Pain/Injury ---
General Chief Complaint: Hip/Pelvic Problems Stated Complaint: FALL Source: patient, EMS, old records History of Present Illness Date Seen by Provider: Nov 28, 2019 Time Seen by Provider: 18:24 Initial Comments PT ARRIVES VIA EMS FROM HOME PT BROUGHT TO [facility] ON ARRIVAL STATES SHE WAS ASLEEP AND FELL OUT OF BED 2 DAYS AGO, LANDING ON LEFT HIP HAS HAD PAIN IN LEFT HIP SINCE THEN HAS BEEN IN BED SINCE THEN, BUT ABLE TO AMBULATE WITH DIFFICULTY, USING A CANE, TO AND FROM BATHROOM DID NOT HIT HEAD AND NO LOSS OF CONSCIOUSNESS DENIES ANY OTHER INJURIES OR AREAS OF PAIN NO PARESTHESIAS OR MOTOR DEFICITS NO PRIOR INJURY TO THIS HIP TOOK 2 ASPIRIN TODAY AT [facility] FOR PAIN EMS NOTED THAT PT HAD TEMP OF 100.8 PT C/O MILD SHORTNESS OF BREATH--STATES SHE HAS COPD AND HAD BEEN OUT OF HER BREO FOR A COUPLE OF DAYS DENIES ANY OTHER SYMPTOMS DOES NOT KNOW IF SHE HAS BEEN EXPOSED TO ANYONE WHO IS ILL, BUT HAS NOT FOLLOWED STAY AT HOME ORDERS, UNTIL SHE FELL 2 DAYS AGO. 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 Other PCP: "NONE"--PLANS ON ESTABLISHING CARE WITH DR. ERNST Allergies and Home Medications Allergies Coded Allergies: Sulfa (Sulfonamide Antibiotics) (Verified Allergy, Unknown, 11/26/06) lisinopril (Verified Allergy, Unknown, 07/26/14) metformin (Verified Allergy, Unknown, 07/26/14) Home Medications Albuterol 8.5 Gm Hfa.aer.ad, 2 PUFF IH Q4H PRN for SHORTNESS OF BREATH, (Reported) NEEDED FOR SHORTNESS OF BREATH Albuterol Sulfate/Ipratropium 3 Ml Solution, 3 ML IH Q4H PRN for SHORTNESS OF BREATH, (Reported) NEEDED FOR SHORTNESS OF BREATH Amitriptyline Hcl 25 Mg Tablet, 25 MG PO HS, (Reported) Amlodipine Besylate 2.5 Mg Tablet, 2.5 MG PO DAILY, (Reported) Aspirin 81 Mg Tabec, 81 MG PO DAILY, (Reported) Biotin 5,000 Mcg Tab.rapdis, 5,000 MCG PO DAILY, (Reported) Cephalexin 500 Mg Capsule, 500 MG PO TID Prescribed by: JUNE DIANA on 06/06/191906 Citalopram Hydrobromide 20 Mg Tab, 20 MG PO DAILY, (Reported) Fluticasone/Vilanterol 1 Each Blst.w.dev, 1 EACH IH DAILY, (Reported) Gabapentin 300 Mg Capsule, 600 MG PO TID, (Reported) Hydrocodone Bit/Acetaminophen 1 Tab Tab, 1 TAB PO Q6H PRN for PAIN-MODERATE TO SEVERE Prescribed by: SARAH BAL on 11/22/18 103 Hydrocodone Bit/Acetaminophen 1 Tab Tab, 1 EACH PO Q4-6HR PRN for PAIN-MODERATE Prescribed by: JUNE DIANA on 06/06/191906 Insulin Glargine,Hum.rec.anlog 100 Unit/1 Ml Vial, 15 UNITS SQ HS, (Reported) Metoprolol Tartrate 100 Mg Tablet, 100 MG PO BID, (Reported) WITH MEALS Ondansetron 4 Mg Tab.rapdis, 4 MG SL Q4H Prescribed by: JUNE DIANA on 06/06/191907 Simvastatin 20 Mg Tablet, 20 MG PO HS, (Reported) Spironolactone 100 Mg Tablet, 100 MG PO BID, (Reported) Patient Home Medication List Home Medication List Reviewed: Yes Review of Systems Constitutional: see HPI, fever, weakness EENTM: no symptoms reported; No nose congestion, No throat pain Respiratory: see HPI; No cough; dyspnea on exertion; No phlegm; short of breath Cardiovascular: no symptoms reported; No chest pain, No edema Gastrointestinal: no symptoms reported; No abdominal pain, No diarrhea, No nausea, No vomiting Genitourinary: no symptoms reported : No Musculoskeletal: see HPI; No back pain; joint pain; No neck pain; other (LEFT UPPER ARM ALSO SORE) Skin: no symptoms reported Psychiatric/Neurological: No Symptoms Reported; Denies Headache, Denies Numbness, Denies Paresthesia, Denies Weakness Past Eusnztp-Ywzqbw-Pzfscs Hx Past Med/Social Hx: Reviewed and Corrections made Patient Social History Alcohol Use: Regular Use (HISTORY OF ABUSE, NOW "OCCASIONALLY" DRINKS) Recreational Drug Use: Yes (THC AND SMOKED CRACK COCAINE-DENIES IV USER) Drug of Choice: THC AND CRACK COCAINE USE-DENIES IV USE Smoking Status: Former Smoker (1 PPD-QUIT 2010) Type Used: Cigarettes Recent Hopitalizations: No Immunizations Up To Date Tetanus Booster (TDap): Less than 5yrs PED Vaccines UTD: No Date of Pneumonia Vaccine: Aug 25, 2013 Date of Influenza Vaccine: May 22, 2018 Past Medical History Surgeries: Yes (BILAT KNEE REPLACEMENT; L ANKLE FX/ORIF;HYST/BSO;CATARACTS;URETERAL STENTS) Cardiac, Section, Eye Surgery, Gallbladder, Hysterectomy, Oophorectomy, Orthopedic, Renal Respiratory: Yes Pneumonia, COPD Cardiac: Yes (HX OF ANGIOEDEMA DUE TO MEDICATION;CARDIAC CATH 03/2010-NO INTERVENTION) Chronic Edema/Swelling, Coronary Artery Disease, High Cholesterol, Hypertension Neurological: Yes Neuropathy Reproductive Disorders: Yes (hysterectomy) 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 Sexually Transmitted Disease: Yes (TRICHOMONAS) HIV/AIDS: No Genitourinary: Yes (CHRONIC RENAL INSUFFICIENCT) Kidney Infection, Bladder Infection, Kidney Stones, Renal Failure Gastrointestinal: Yes (EGD'S) Gastroesophageal Reflux, Pancreatitis, Ulcer Musculoskeletal: Yes (BILATERAL KNEE REPLACEMENT; LEFT ANKLE FX/ORIF;CHRONIC GENERALIZED PAIN) Arthritis, Back Injury, Chronic Back Pain, Fractures Endocrine: Yes Diabetes, Insulin dep HEENT: Yes (ONLY HAS PERIPHERAL VISION IN LEFT EYE) Cataract Loss of Vision: Left (ONLY HAS PERIPHERAL VISION IN LEFT EYE) Cancer: No Psychosocial: Yes Eating Disorder, Sleep Difficulties, Anxiety, Depression Integumentary: No Blood Disorders: No Adverse Reaction/Blood Tranf: No Family Medical History Alcoholism 09 SISTER 09 SISTER Cancer 03 MOTHER Cataract 09 SISTER Family history: Cardiovascular disease 09 BROTHER (HEART ATTACK) Family history: Diabetes mellitus 09 SISTER Family history: Glaucoma 09 SISTER 09 SISTER Family history: Hypertension 09 BROTHER 09 BROTHER 09 BROTHER Family history: Osteoporosis 09 SISTER 09 SISTER Kidney disease 09 SISTER Seizure disorder Stroke 09 BROTHER No Family History of: Abdominal aortic aneurysm Cancer of colon Chest pain Congenital heart disease Congestive heart failure Cystic fibrosis Dementia Dysphagia Family history: Allergy Family history: Alzheimer's disease Family history: Arthritis Family history: Breast disease Family history: Coronary thrombosis Family history: Gastrointestinal disease Headache Hearing loss Heart disease Hereditary disease History of - anemia History of - disorder History of - respiratory disease History of drug abuse Human immunodeficiency virus (HIV) seropositivity Hypercholesterolemia Infertile Malignant neoplasm of lung Myocardial infarction Parkinson's disease Prostate cancer Psychotic disorder Tuberculosis Visual impairment Heart Disease, Cancer, CVA, Diabetes PSH: -BILATERAL CATARACT SURGERY -CARDIAC CATH 03/2010--NO INTERVENTION -CHOLECYSTECTOMY -HYSTERECTOMY/BSO -BILATERAL KNEE REPLACEMENTS -LEFT ANKLE FX/ORIF -EGD'S - -CYSTOSCOPIES/URETERAL STENTS X 4-5 Physical Exam Vital Signs Vital Signs - First Documented 11/28/19 11/28/19 18:24 18:40 Temp 37.7 Pulse 85 Resp 20 B/P (MAP) 137/89 (105) Pulse Ox 94 O2 Delivery Room Air O2 Flow Rate 2.00 Capillary Refill : Height, Weight, BMI Height: 5'0.00" Weight: 220lbs. 0.3oz. 99.680606iw; 43.00 BMI Method:Stated General Appearance: No Apparent Distress, WD/WN, Other (EXTREMELY DRAMATIC AND MOANING LOUDLY AT TIMES. STOPS WHEN DISTRACTED. ) HEENT: PERRL/EOMI Neck: Full Range of Motion, Normal Inspection, Non Tender, Supple Cardiovascular: Regular Rate, Rhythm, No Edema, No JVD, No Murmur, Normal Peripheral Pulses Respiratory: Chest Non Tender, Normal Breath Sounds, No Accessory Muscle Use, No Respiratory Distress Peripheral Pulses: 2+ Dorsalis Pedis (R), 2+ Left Dors-Pedis (L), 2+ Radial Pulses (R), 2+ Radial Pulses (L) Gastrointestinal: Normal Bowel Sounds, No Organomegaly, No Pulsatile Mass, Non Tender, Soft Back: No CVA Tenderness, No Vertebral Tenderness Extremity: Other (DIFFUSE TENDERNESS TO LEFT UPPER ARM--SHOULDER TO ELBOW; LEFT HIP, LEFT GROIN, AND LEFT FEMUR TENDERNESS DOWN TO LEFT KNEE. NO EXTERNAL EVIDENCE OF TRAUMA. 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 Norm as Tested Skin: Normal Color, Warm/Dry; No Ecchymosis Progress/Results/Core Measures Results/Orders Lab Results Laboratory Tests Test 11/28/19 18:41 11/28/19 18:55 11/28/19 19:05 4/7/20 19:28 Range/Units Group A Streptococcus Screen NEGATIVE NEGATIVE White Blood Count 13.4 H 4.3-11.0 10^3/uL Red Blood Count 3.81 L 4.35-5.85 10^6/uL Hemoglobin 12.3 11.5-16.0 G/DL Hematocrit 38 35-52 % Mean Corpuscular Volume 100 H 80-99 FL Mean Corpuscular Hemoglobin 32 25-34 PG Mean Corpuscular Hemoglobin Concent 33 32-36 G/DL Red Cell Distribution Width 14.1 10.0-14.5 % Platelet Count 204 130-400 10^3/uL Mean Platelet Volume 10.1 7.4-10.4 FL Neutrophils (%) (Auto) 64 42-75 % Lymphocytes (%) (Auto) 23 12-44 % Monocytes (%) (Auto) 11 0-12 % Eosinophils (%) (Auto) 2 0-10 % Basophils (%) (Auto) 0 0-10 % Neutrophils # (Auto) 8.6 H 1.8-7.8 X 10^3 Lymphocytes # (Auto) 3.1 1.0-4.0 X 10^3 Monocytes # (Auto) 1.5 H 0.0-1.0 X 10^3 Eosinophils # (Auto) 0.2 0.0-0.3 10^3/uL Basophils # (Auto) 0.0 0.0-0.1 10^3/uL Erythrocyte Sedimentation Rate 62 H 0-30 MM/HR Prothrombin Time 12.9 12.2-14.7 SEC INR Comment 0.9 0.8-1.4 Activated Partial Thromboplast Time 31 24-35 SEC D-Dimer 1.19 H 0.00-0.49 UG/ML Sodium Level 139 135-145 MMOL/L Potassium Level 4.0 3.6-5.0 MMOL/L Chloride Level 101 98-107 MMOL/L Carbon Dioxide Level 24 21-32 MMOL/L Anion Gap 14 5-14 MMOL/L Blood Urea Nitrogen 12 7-18 MG/DL Creatinine 0.92 0.60-1.30 MG/DL Estimat Glomerular Filtration Rate > 60 BUN/Creatinine Ratio 13 Glucose Level 207 H 70-105 MG/DL Lactic Acid Level 1.72 0.50-2.00 MMOL/L Calcium Level 9.2 8.5-10.1 MG/DL Corrected Calcium 9.4 8.5-10.1 MG/DL Magnesium Level 1.7 1.6-2.4 MG/DL Total Bilirubin 0.2 0.1-1.0 MG/DL Aspartate Amino Transf (AST/SGOT) 16 5-34 U/L Alanine Aminotransferase (ALT/SGPT) 14 0-55 U/L Alkaline Phosphatase 98 40-136 U/L Lactate Dehydrogenase 283 H 125-220 U/L Troponin I < 0.028 <0.028 NG/ML C-Reactive Protein High Sensitivity 8.41 H 0.00-0.50 MG/DL B-Type Natriuretic Peptide < 10.0 <100.0 PG/ML Total Protein 6.5 6.4-8.2 GM/DL Albumin 3.8 3.2-4.5 GM/DL Amylase Level 32 25-125 U/L Lipase 16 8-78 U/L Procalcitonin 0.05 <0.10 NG/ML Acetaminophen Level < 10 L 10-30 UG/ML Serum Alcohol 10 <10 MG/DL Monoscreen NEGATIVE NEGATIVE Urine Color YELLOW Urine Clarity CLEAR Urine pH 6.0 5-9 Urine Specific [place] 1.020 1.016-1.022 Urine Protein NEGATIVE NEGATIVE Urine Glucose (UA) 2+ H NEGATIVE Urine Ketones NEGATIVE NEGATIVE Urine Nitrite NEGATIVE NEGATIVE Urine Bilirubin NEGATIVE NEGATIVE Urine Urobilinogen 0.2 < = 1.0 MG/DL Urine Leukocyte Esterase NEGATIVE NEGATIVE Urine RBC (Auto) NEGATIVE NEGATIVE Urine RBC 0-2 /HPF Urine WBC 2-5 /HPF Urine Crystals PRESENT H /LPF Urine Amorphous Sediment FEW SHAHLA URATES H /LPF Urine Bacteria TRACE /HPF Urine Casts NONE /LPF Urine Mucus NEGATIVE /LPF Urine Culture Indicated NO Urine Opiates Screen NEGATIVE NEGATIVE Urine Oxycodone Screen NEGATIVE NEGATIVE Urine Methadone Screen NEGATIVE NEGATIVE Urine Propoxyphene Screen NEGATIVE NEGATIVE Urine Barbiturates Screen NEGATIVE NEGATIVE Ur Tricyclic Antidepressants Screen POSITIVE H NEGATIVE Urine Phencyclidine Screen NEGATIVE NEGATIVE Urine Amphetamines Screen NEGATIVE NEGATIVE Urine Methamphetamines Screen NEGATIVE NEGATIVE Urine Benzodiazepines Screen NEGATIVE NEGATIVE Urine Cocaine Screen NEGATIVE NEGATIVE Urine Cannabinoids Screen NEGATIVE NEGATIVE Glucometer 203 H 70-110 MG/DL Micro Results Microbiology 11/28/19 Influenza Types A,B Antigen (KELLEY) - Final, Complete My Orders Orders - CHEN FREEMAN DO Accucheck Stat ONCE (11/28/19 18:33) Ed Iv/Invasive Line Start (11/28/19 18:33) Catheter(Urinary) Insert & Ass 03,15 (11/28/19 18:33) O2 (11/28/19 18:33) Monitor-Rhythm Ecg Trace Only (11/28/19 18:33) Chest 1 View, Ap/Pa Only (11/28/19 18:33) Humerus, Left, 2 Views (11/28/19 18:33) Femur, Left, 2 Views (11/28/19 18:33) Pelvis With Left Hip 2-3 Views (11/28/19 18:33) Acetaminophen (11/28/19 18:) Alcohol (11/28/19 18:33) Amylase (11/28/19 18:) BNP (11/28/19 18:33) Cbc With Automated Diff (11/28/19 18:33) Comprehensive Metabolic Panel (11/28/19 18:33) Drug Screen Stat (Urine) (11/28/19 18:33) Lactic Acid Analyzer (11/28/19 18:33) Lipase (11/28/19 18:33) Magnesium (11/28/19 18:33) Monotest (11/28/19 18:33) Protime With Inr (11/28/19 18:33) Partial Thromboplastin Time (11/28/19 18:33) Ua Culture If Indicated (11/28/19 18:33) Blood Culture (11/28/19 18:33) Influenza A And B Antigens (11/28/19 18:33) Troponin I (11/28/19 18:33) Ed Iv/Invasive Line Start (11/28/19 18:33) Ns Iv 1000 Ml (Sodium Chloride 0.9%) (11/28/19 18:33) Fibrin Degradation Products (11/28/19 18:33) Procalcitonin (Pct) (11/28/19 18:33) Hs C Reactive Protein (11/28/19 18:33) Erythrocyte Sedimentation Rate (11/28/19 18:33) LDH (11/28/19 18:33) 2019 Coronavirus Sars-Cov-2 So (11/28/19 18:33) Rapid Strep A Screen (11/28/19 18:41) Fentanyl Injection (Sublimaze Injection (11/28/19 18:45) Ferritin (11/28/19 19:30) Ct Extremity Lower Left Wo (11/28/19 19:47) Fentanyl Injection (Sublimaze Injection (11/28/19 19:50) Azithromycin Tablet (Zithromax Tablet) (11/28/19 20:45) Rx-Hydrocodone/Apap 5-325 Mg (Rx-Vicodin (11/28/19 20:45) Medications Given in ED Current Medications Medications Dose Ordered Sig/Jasmina Route Start Time Stop Time Status Last Admin Dose Admin Fentanyl Citrate 50 mcg ONCE ONCE IVP 11/28/19 18:45 11/28/19 18:46 DC 11/28/19 18:55 50 MCG Sodium Chloride 1,000 ml @ 0 mls/hr Q0M ONCE IV 11/28/19 18:33 11/28/19 18:38 DC 11/28/19 19:07 0 MLS/HR Vital Signs/I&O 11/28/19 11/28/19 18:24 18:40 Temp 37.7 Pulse 85 Resp 20 B/P (MAP) 137/89 (105) Pulse Ox 94 O2 Delivery Room Air Nasal Cannula O2 Flow Rate 2.00 Progress Progress Note : Progress Note PT TAKEN TO COVID UNIT ON ARRIVAL BY EMS DUE TO PT HAVING FEVER OVER 100 AND SLIGHT SHORTNESS OF BREATH PPE WORN AT ALL TIMES PT ON CELL PHONE ( LOUDLY ON SPEAKER PHONE) SHORTLY AFTER ARRIVAL GIVEN FENTANYL FOR PAIN WITH SOME IMPROVEMENT GIVEN IV FLUIDS NO DETERIORATION IN PT'S CONDITION NO COUGH OR DYSPNEA AT ANY TIME. 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 COPD IDDM (insulin dependent diabetes mellitus) Disposition: 01 HOME, SELF-CARE Condition: Stable Departure-Patient Inst. Referrals: NO,LOCAL PHYSICIAN (PCP/Family) Primary Care Physician Patient Instructions: COVID19, Chronic Pain (DC), Diabetes Type 2 (DC), Hip Pain (DC), Osteoarthritis (DC), Preventing Falls in the Older Adult Add. Discharge Instructions: USE WALKER AT ALL TIMES CHECK YOUR BLOOD SUGAR 3 TIMES A DAY AND KEEP DIARY. TAKE ALL OF YOUR REGULAR MEDICATIONS PRESCRIBED FOLLOW UP WITH DR. ERNST IN 1 WEEK IF NO BETTER RETURN TO ER IF RESPIRATORY SYMPTOMS WORSEN QUARANTINE YOURSELF AND ANY HOUSEHOLD MEMBERS FOR THE NEXT 2 WEEKS TYLENOL NEEDED FOR PAIN OR FEVER All discharge instructions reviewed with patient and/or family. Voiced understanding. Scripts Tramadol HCl (Ultram) 50 Mg Tablet 50 MG PO Q4H for Pain, #20 TAB Prov: CHEN FREEMAN DO 11/28/19 Azithromycin (Zithromax) 500 Mg Tablet 500 MG PO DAILY for 5 Days, #5 TAB Prov: CHEN FREEMAN DO 11/28/19 CHEN FREEMAN DO Nov 28, 2019 18:42
[2019-11-28] MEDS ORDERED: fentaNYL INJECTION 100 MCG/2 ML AMP IVP ONE (18:45)
[2019-11-28 19:17] LABS: BASOPHILS % (AUTO) 0 % (0-10); EOSINOPHILS # (AUTO) 0.2 10^3/uL (0.0-0.3); EOSINOPHILS % (AUTO) 2 % (0-10); HEMATOCRIT 38 % (35-52); HEMOGLOBIN 12.3 G/DL (11.5-16.0); LYMPHOCYTES # (AUTO) 3.1 X 10^3 (1.0-4.0); LYMPHOCYTES % (AUTO) 23 % (12-44); MEAN CORPUSCULAR HEMOGLOBIN 32 PG (25-34); MEAN CORPUSCULAR HGB CONC 33 G/DL (32-36); MEAN CORPUSCULAR VOLUME 100 FL (80-99); MEAN PLATELET VOLUME 10.1 FL (7.4-10.4); MONOCYTES # (AUTO) 1.5 X 10^3 (0.0-1.0); MONOCYTES % (AUTO) 11 % (0-12); NEUTROPHILS # (AUTO) 8.6 X 10^3 (1.8-7.8); NEUTROPHILS % (AUTO) 64 % (42-75); PLATELET COUNT 204 10^3/uL (130-400); RED CELL DISTRIBUTION WIDTH 14.1 % (10.0-14.5); WHITE BLOOD COUNT 13.4 10^3/uL (4.3-11.0)
[2019-11-28 19:28] LABS: BILIRUBIN,URINE NEGATIVE (NEGATIVE); CLARITY,URINE CLEAR; COLOR,URINE YELLOW; GLUCOSE, URINE (UA) 2+ (NEGATIVE); KETONES,URINE NEGATIVE (NEGATIVE); LEUKOCYTE ESTERASE ,URINE NEGATIVE (NEGATIVE); NITRITE,URINE NEGATIVE (NEGATIVE); PROTEIN,URINE NEGATIVE (NEGATIVE)
[2019-11-28 19:29] LABS: CHLORIDE 101 MMOL/L (98-107); SODIUM 139 MMOL/L (135-145)
[2019-11-28 19:30] LABS: ALBUMIN 3.8 GM/DL (3.2-4.5)
[2019-11-28 19:31] LABS: AMYLASE 32 U/L (25-125); CALCIUM 9.2 MG/DL (8.5-10.1)
[2019-11-28 19:32] LABS: GLUCOSE 207 MG/DL (70-105); TOTAL PROTEIN 6.5 GM/DL (6.4-8.2)
[2019-11-28 19:33] LABS: CARBON DIOXIDE 24 MMOL/L (21-32)
[2019-11-28 19:34] LABS: BILIRUBIN,TOTAL 0.2 MG/DL (0.1-1.0)
[2019-11-28 19:36] LABS: ALKALINE PHOSPHATASE 98 U/L (40-136); CREATININE SERUM 0.92 MG/DL (0.60-1.30); GFR ESTIMATED > 60
[2019-11-28 19:37] LABS: ACETAMINOPHEN < 10 UG/ML (10-30); BUN/CREATININE RATIO 13
[2019-11-28 19:39] LABS: ALANINE AMINOTRANSFERASE 14 U/L (0-55); MAGNESIUM 1.7 MG/DL (1.6-2.4)
[2019-11-28 19:40] LABS: FIBRIN DEGRADATION PRODUCTS 1.19 UG/ML (0.00-0.49); INR 0.9 (0.8-1.4); LIPASE 16 U/L (8-78); PROTHROMBIN TIME PATIENT 12.9 SEC (12.2-14.7)
--- NOTE | 2019-11-28 19:41 | Diagnostic Imaging Report ---
EXAMINATION: Left femur 2 or more views HISTORY: Trauma COMPARISON: None available. FINDINGS: There is a left total knee arthroplasty. No knee joint effusion. No fracture seen in the left femur. IMPRESSION: 1. No fracture in the left femur. Dictated by: Dictated on workstation # [id number]
--- NOTE | 2019-11-28 19:41 | Diagnostic Imaging Report ---
INDICATION: Fall 2 days ago FINDINGS: Portable chest. There is linear scarring left mid lung. The lungs are otherwise clear and well aerated. The heart is not enlarged. No pulmonary edema or hilar adenopathy. No pneumothorax or pleural effusion. No rib fractures demonstrated. IMPRESSION: Mild linear scarring left mid lung. No significant change when compared with 03/11/2015 chest. Dictated by: Dictated on workstation # [id number]
--- NOTE | 2019-11-28 19:44 | Diagnostic Imaging Report ---
EXAMINATION: Left hip unilateral 2 or 3 views (w/pelvis when done) HISTORY: Trauma COMPARISON: None available. FINDINGS: There is moderate bilateral hip joint osteoarthritis. No acute fracture is seen. Osteitis pubis. IMPRESSION: 1. No acute fracture. 2. Moderate bilateral hip joint osteoarthritis. Dictated by: Dictated on workstation # [id number]
--- NOTE | 2019-11-28 19:44 | Diagnostic Imaging Report ---
INDICATION: Fall 2 days ago. Left arm pain. FINDINGS: 2 views. There is advanced arthritic disease of the shoulder with loss of joint space. There are large hypertrophic bony changes both along the lateral and medial aspects along the base of the humeral head. There are no fractures. AC joints in good alignment with moderate hypertrophic change. Elbow shows good alignment without joint effusion. IMPRESSION: Advanced degenerative arthritic changes with hypertrophic bone noted throughout the left shoulder. No acute abnormalities. Dictated by: Dictated on workstation # [id number]
[2019-11-28 19:47] LABS: AMORPHOUS SEDIMENT,UR FEW AMOR URATES /LPF; BACTERIA,URINE TRACE /HPF; RBC,URINE 0-2 /HPF
[2019-11-28 19:48] LABS: ERYTHROCYTE SEDIMENTATION RATE 62 MM/HR (0-30)
[2019-11-28 19:48] LABS: AMPHETAMINE SCREEN, URINE NEGATIVE (NEGATIVE); BARBITURATE SCREEN URINE NEGATIVE (NEGATIVE); BENZODIAZEPINES SCREEN URINE NEGATIVE (NEGATIVE); CANNABINOID SCREEN, URINE NEGATIVE (NEGATIVE); COCAINE SCREEN URINE NEGATIVE (NEGATIVE); METHADONE STAT NEGATIVE (NEGATIVE); METHAMPHETAMINE SCREEN URINE S NEGATIVE (NEGATIVE); OPIATE SCREEN URINE NEGATIVE (NEGATIVE); OXYCODONE STAT NEGATIVE (NEGATIVE); PROPOXYPHENE STAT NEGATIVE (NEGATIVE); TRICYCLIC ANTIDEPRESSANTS SCRE POSITIVE (NEGATIVE)
[2019-11-28] MEDS ORDERED: fentaNYL INJECTION 100 MCG/2 ML AMP IVP STA (19:50)
--- NOTE | 2019-11-28 20:33 | Diagnostic Imaging Report ---
PROCEDURE: CT left lower extremity without contrast. TECHNIQUE: Multiple contiguous axial images were obtained through the left lower extremity without the use of intravenous contrast. Sagittal and coronal reformations were then performed. Auto Exposure Controls were utilized during the CT exam to meet ALARA standards for radiation dose reduction. INDICATION: Left hip pain. FINDINGS: Small ppffl-ml-lftp imaging is obtained through the left hip. There is rather advanced degenerative disease with loss of joint space. Subcortical cystic changes along the femoral head and acetabulum without evidence of cortical fracture. Mild hypertrophic changes are noted along the base of the femoral head both medially and laterally. Femoral neck and trochanter appear intact. Surrounding soft tissues appear normal without evidence of calcification. IMPRESSION: Advanced arthritic changes noted of the left hip without acute abnormality demonstrated. Dictated by: Dictated on workstation # [id number]
[2019-11-28] MEDS ORDERED: AZITHROMYCIN 250 MG TAB (ZITHROMAX) PO ONE (20:45)
[2019-11-28] MEDS ORDERED: TRAM-42 PO (20:46)
[2019-11-28] MEDS ORDERED: AZIT500T PO (20:46)
[2019-11-28] MEDS: RX-HYDROCODONE/APAP 5/325 MG #4 TAB PK PO PRN ×2 (20:49→20:50)
[2019-11-28 20:59] VITALS: BP 144/85
--- OUTSIDE RECORDS SUMMARY | 2019-11-28 22:11 | XMS REPORT | Summary of Care ---
Author Author [facility] er Organization [facility] er Address Unknown Phone Unavailable Encounter [facility] ANGELITO Freeman [id number] Date(s): 10/06/16 - 10/06/16 [facility] [address] [place] [id number] Discharge Disposition: Home - 01 Attending Physician: HAYDEE OMSES MD Admitting Physician: HAYDEE MOSES MD Referring Physician: HAYDEE MOSES MD Vital Signs No data available for this section Problem List No data available for this section Allergies, Adverse Reactions, Alerts No data available for this section Medications No data available for this section Results No data available for this section Immunizations No data available for this section Procedures No data available for this section Social History No data available for this section Functional Status No data available for this section Assessment and Plan No data available for this section Hospital Discharge Instructions No data available for this section
--- OUTSIDE RECORDS SUMMARY | 2019-11-28 22:11 | XMS REPORT | Summary of Care ---
Author Author [facility] er Organization [facility] er Address Unknown Phone Unavailable Encounter [facility] ANGELITO Freeman [id number] Date(s): 02/21/16 - 02/21/[address] [place] [address] [place] [id number] [place] [address] Discharge Disposition: Home - 01 Attending Physician: HAYDEE MOSES MD Admitting Physician: HAYDEE MOSES MD Referring [...]
--- OUTSIDE RECORDS SUMMARY | 2019-11-28 22:11 | XMS REPORT | Continuity of Care Document ---
Author Author [employer] [facility] Address Unknown Phone Unavailable Care Team Providers Care Rouge Presser Name Role Phone [facility] Unavailable Unavailable Problems Problem Status Onset Date Classification Date Reported Comments Source GASTRO-ESOPHAGEAL REFLUX DISEASE WITHOUT Active 02/21/2016 [facility] Medications No Data Provided for This Section Allergies, Adverse Reactions, Alerts No Known Medication Allergies Immunizations No Data Provided for This Section Results Order Name Results Value Reference Range Date Interpretation Comments Source HP Urease H pylori Positive Negative 02/22/2016 @ Recent ingestion of antibiotics, bismuth , proton pump inhibitors, or sucralfate can inhibit H. pylori causing false negative results.
[facility] No data available for this section No data available for this section [facility] No data available for this section No data available for this section [address] [place] [address] Pathology Reports No Data Provided for This Section Diagnostic Reports No Data Provided for This Section Consultation Notes No Data Provided for This Section Discharge Summaries No Data Provided for This Section History and Physicals No Data Provided for This Section Vital Signs No Data Provided for This Section Encounters Location Location Details Encounter Type Encounter Number Reason For Visit Attending Provider ADM Date DC Date Status Source [facility] Outpatient [id number] HAYDEE MOSES MD 10/06/2016 10/07/2016 [facility] 006 006 # [id number] DX INT HAYDEE MOSES MD 03/03/2016 Active [facility] Non-Patient [id number] HAYDEE MOSES MD 02/21/2016 02/22/[address] [place] [address] 006 006 N [id number] LAB HAYDEE MOSES MD 02/21/2016 02/21/2016 Active [facility] Procedures No Data Provided for This Section Plan of Care No Data Provided for This Section Social History No Data Provided for This Section Assessment and Plan No Data Provided for This Section Family History No Data Provided for This Section Advance Directives No Data Provided for This Section Functional Status No Data Provided for This Section
--- OUTSIDE RECORDS SUMMARY | 2019-11-28 22:11 | XMS REPORT | Summary of Care ---
Author Author [facility] er Organization [facility] er Address Unknown Phone Unavailable Encounter [facility] ANGELITO Freeman [id number] Date(s): 10/06/16 - 10/06/16 [facility] [address] [place] [id number] Discharge Disposition: Home - 01 Attending Physician: [...]
--- OUTSIDE RECORDS SUMMARY | 2019-11-28 22:11 | XMS REPORT | Summary of Care ---
Author Author [facility] er Organization [facility] er Address Unknown Phone Unavailable Encounter [facility] ANGELITO Freeman [id number] Date(s): 10/06/16 - 10/06/[address] [facility] [address] [place] [id number] Discharge Disposition: Home - 01 Attending [...]
--- OUTSIDE RECORDS SUMMARY | 2019-11-28 22:11 | XMS REPORT | Summary of Care ---
Author Author [facility] Organization [facility] er Address Unknown Phone Unavailable Encounter [facility] ANGELITO Freeman [id number] Date(s): 10/06/16 - 10/06/16 [facility] [address] [place] [id number] Discharge Disposition: Home - 01 Attending [...]
--- OUTSIDE RECORDS SUMMARY | 2019-11-28 22:11 | XMS REPORT | Summary of Care ---
Author Author [facility] er Organization [facility] er Address Unknown Phone Unavailable Encounter [facility] ANGELITO Freeman [id number] Date(s): 10/06/16 - 10/06/16 [facility] [address] [place] [id number] Discharge Disposition: Home - 01 Attending [...]
--- OUTSIDE RECORDS SUMMARY | 2019-11-28 22:11 | XMS REPORT | Clinical Summary ---
Author Author [facility] Organization [facility] Address Unknown Phone Unavailable Care Team Providers Care Manager Business Process Name Role Phone Angela Galloway MD Unavailable Yassine Cano MD Unavailable Chantel Don DO Unavailable Jeremy Franco MD Unavailable Unavailable Angela Galloway MD PCP Joanna Causey RD Unavailable Unavailable Leeanna Cheema RN Unavailable Unavailable Patrick Astorga MD Unavailable April Weaver DO Unavailable Genevieve Chavira MD Unavailable Gege Joseph MD Unavailable Jermaine Penaloza MD Unavailable Bijan Ambrocio [facility] Unavailable [phone] Smiley Barahona RN Unavailable Unavailable Source Comments Some departments are not documenting in the electronic medical record. If you d o not see the information that you expected, contact Release of Information in [facility] Health Information Management department at [phone] for further assistan ce in locating additional records.[facility] Allergies Comments Active Allergy Reactions Severity Noted [...] estrogens, conjugated(+) Apply as 1 Container 0 1 (PREMARIN) 0.625 mg/g directed 2 vaginal creamIndications: Menopause ovarian failure Active potassium chloride(+) Take 2 Caps 90 Cap 3 10/22 (MICRO-K) 10 mEq capsule by mouth 3 daily. Active hydrochlorothiazide Take 1 Tab by 90 Cap 3 10/22 (HYDRODIURIL) 25 mg mouth daily. 3 tablet [...] beclomethasone(+) (QVAR) Inhale 2 3 Inhaler 3 0 80 mcg/actuation inhaler Puffs by 3 mouth twice daily. Active metoprolol (LOPRESSOR) Take 1 Tab by 180 Tab 3 0 100 mg tablet mouth twice 3 daily. Active Insulin Kamiah 100 Each 11 (Disposable) (ULTICARE) 3 29 x 1/2 " Ndle Active famotidine (PEPCID) 20 mg Take 1 Tab by 60 Tab 0 tablet mouth twice 3 daily. Active citalopram (CELEXA) 20 mg Take 2 Tabs 180 Tab 1 tablet by mouth 3 daily. Active gabapentin (NEURONTIN) Take 1 Cap by 270 Cap 3 0 100 mg capsule mouth three 3 times [...] Plan: Appears well treated at this time. Ret inal detachment precautions discussed. Patient is to contact us im mediately if increased floaters, flashing lights, or dark curtains/veils are noted. Monocular precautions discussed. Depression 01/04/2013 Last Assessment & Plan: Improved with increase in celexa. Cont inue to monitor. Diabetes mellitus 01/04/2013 Overview: Follow up with HbA1c and microalbuminur ia. L ast Assessment & Plan: No retinopathy, continue strict blood g lucose control. Ankle fracture, left 01/03/2013 Last Assessment & Plan: Plain film today - referral to orthoped ic surgery Lung mass 01/03/2013 Overview: Resolved on subsequent CT LIMA (dyspnea on exertion) 01/03/2013 Last Assessment & Plan: Etiology remains unclear. Difficulty k eeping advair on hand due to insurance reasons. Has required sample s from pulm clinic. Will write for fluticasone and salmeterol individually . Continue to follow with pulm. May consider repeat cardiac work up of respiratory issues persist. Chest pain sounds more pleuritic/anxiety rela lexis as it is relieved with advair. HTN (hypertension) 01/03/2013 Overview: discontinue HCTZ, Start Norvasc. Last Assessment & Plan: Continues to be hypertensive despite HC TZ and metoprolol. Intolerant of LUCIANO/ARB due to angioedema as well as CC B due to cough. 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 Based on history, this sounds more bradykinin mediated and not mast cell mediated and could very well have been caused by one or more me dications. - would strongly encourage discontinuin g Cozaar and not restart an ACEi or an ARB as these are associated with ang ioedema, but recommend a calcium channel rian instead to control HTN. We will refer to internal medicine here at to further evaluate this and decide on her medications. - will send baseline labs including C4, C3, ESR, CRP, CBC, CMP, C1 antigen and function - ask that patient keep a journal of ev ents should this happen again. It should include what she ingested, foods , medications, etc., how long after she ingested that it started, how long it lasted and if possible pictures. - will provide an EpiPen for severe irving ctions involving the airway Hemoptysis 05/19/2012 Overview: History of bloody sputum for the last 2 weeks or so. By report, has had a CT scan of chest that showed pneumonia only and was treated. - will obtain a chest xray today to [facility] low-up on pneumonia, with concern for malignancy because of history of sm oking. - recommend seeing a Carbon Capture Power Plant Operator for further evaluation as she has been evaluated by her primary care, will ref er today to [place] pulm. Immunizations Name Administration Dates Next Due FLU VACCINE >3YO 06/08/2012 Pneumococcal [...] No Comments: 1 pack lasted 3 days Drinks/Week oz/Week Comments Alcohol Use 1-2 drinks/year No Sex Assigned at Date Recorded Not on file Industry Job Start Date Occupation Not on file Not on file Not on file Travel End Travel History Travel Start No recent travel history available. Last Filed Vital Signs Reading Time Taken Comments Vital Sign 134/79 04/06/2013 10:29 AM CDT Blood Pressure 70 04/06/2013 10:29 AM CDT Pulse 36.9 C (98.4 F) 04/06/2013 10:20 AM CDT Temperature 20 04/06/2013 10:20 AM CDT Respiratory Rate 99% 03/28/2013 3:35 PM CDT Oxygen Saturation - - Inhaled Oxygen Concentration 101.1 kg (222 lb 12.8 oz) 04/06/2013 10:20 AM CDT Weight 154.9 cm (5' 1") 04/06/2013 10:20 AM CDT Height 42.1 04/06/2013 10:20 AM CDT Body Mass Index Plan of Treatment Health Maintenance Due Date Last Done Comments HEPATITIS C SCREENING 1952 DTAP/TDAP VACCINES (1 - 1963 Tdap) PHYSICAL (COMPREHENSIVE) 1970 EXAM BREAST CANCER SCREENING 1992 COLORECTAL CANCER 2002 SCREENING SHINGLES RECOMBINANT 2002 VACCINE (1 of 2) OSTEOPOROSIS 2017 SCREENING/MONITORING PNEUMONIA (PCV13/PPSV23) 2017 11/10/2012 VACCINES (1 of 2 - PCV13) INFLUENZA VACCINE 03/23/2020 06/08/2012 Results Not on filefrom Last 3 Months Advance Directives Patient Switch Operators Supervisor Explanation Type Date Recorded Advance 05/02/2013 4:38 PM Directive/DPOA
--- OUTSIDE RECORDS SUMMARY | 2019-11-28 22:12 | XMS REPORT | Encounter Summary ---
Author Author [facility] Organization [facility] Address Unknown Phone Unavailable Care Team Providers Care Inspector Watch Assembly Name Role Phone Ebony Sharp MD PCP Reason for Visit * Reason Comments Other Encounter Details Care Team Description Date Type Department Ebony Sharp MD [address] [facility] [address] [place] [address] [phone] Other 11/24/2019 Refill [facility] y [facility] (walk-in clinic) [address] [facility] [address] [place], [place] [id number] Social History Date Tobacco Use Types Packs/Day Years Used 1990 - 04/2011 Former Smoker Cigarettes 0.33 20 Smokeless Tobacco: Never Used Comments: quit 7 years ago Drinks/Week oz/Week Comments Alcohol Use rarely Yes Sex Assigned at Date Recorded Female 03/12/2019 7:45 AM CDT Industry Job Start Date Occupation Not on file Not on file Not on file Travel End Travel History Travel Start No recent travel history available. documented as of this encounter Plan of Treatment Care Team Description [place] [address] [place] [address] [phone] 02/29/2020 Office Visit Urology documented as of this encounter Visit Diagnoses Not on filedocumented in this encounter
--- OUTSIDE RECORDS SUMMARY | 2019-11-28 22:12 | XMS REPORT | Encounter Summary ---
Author Author [facility] Organization [facility] Address Unknown Phone Unavailable Care Team Providers Care Product Tester Name Role Phone Ebony Sharp MD PCP Reason for Visit * HH Auth Cert Referred By Contact Referred To Contact Status Reason Specialty Diagnoses / Procedures Encounter Details Care Team Description Date Type Department Shannon Rangel LPN SN HOME VISIT 10/19/2019 Home Care Visit [facility] [address] [address] Social History Date Tobacco Use Types Packs/Day [...] history available. documented as of this encounter Last Filed Vital Signs Reading Time Taken Comments Vital Sign 120/82 10/19/2019 3:45 PM TRIM MECHANIC Blood Pressure 66 10/19/2019 3:45 PM TRIM MECHANIC Pulse 36.6 C (97.8 F) 10/19/2019 3:45 PM TRIM MECHANIC Temperature 16 10/19/2019 3:45 PM TRIM MECHANIC Respiratory Rate 91% 10/19/2019 3:45 PM TRIM MECHANIC Oxygen Saturation - - Inhaled Oxygen Concentration - - Weight - - Height - - Body Mass Index documented in this encounter Plan of Treatment Care Team Description Date [place] [address] [place] [address] [phone] 02/29/2020 Office Visit Urology documented as of this encounter Visit Diagnoses Not on filedocumented in this encounter Home Health Visit - Care Plan Visit Type - SN Home Visit Discipline - Fci Status Goals Interventions Problem Descriptio Start Date n Active 1 goal linked to scheduled/documented intervention 1 goal intervention scheduled/documented in this visit SN Cardiac: Coping 09/09/2019 Alteration from Lifestyle Changes Disciplines: Fci Active 1 goal linked to scheduled/documented intervention 1 goal intervention scheduled/documented in this visit SN DM: Knowledge Deficit 09/09/2019 Related to Diabetes Disciplines: Fci Active 1 goal linked to scheduled/documented intervention 1 goal intervention scheduled/documented in this visit SN : Knowledge Deficit 09/09/2019 Related to UTI Disciplines: Fci Active 1 goal linked to scheduled/documented intervention 1 goal intervention scheduled/documented in this visit Shared: Advance 09/09/2019 Directives Disciplines: Fci, SHARED Active 1 goal linked to scheduled/documented intervention 1 goal intervention scheduled/documented in this visit Shared: Diabetes: 09/09/2019 Knowledge Deficit Related to Diabetic Foot Care Disciplines: Fci, Physical Therapy, Occupational Therapy, SHARED Active 1 goal linked to scheduled/documented intervention 1 goal intervention scheduled/documented in this visit Shared: Medication Management 09/09/2019 Management and Disciplines: Education Fci, Physical of All Therapy, Occupational Home Therapy, SHARED Medication s Including Prescripti on and OTC. Active 1 goal linked to scheduled/documented intervention 1 goal intervention scheduled/documented in this visit Shared: Pain Management 09/09/2019 Disciplines: Fci, Physical Therapy, Occupational Therapy, SHARED Active 1 goal linked to scheduled/documented intervention 1 goal intervention scheduled/documented in this visit Shared: Patient Strength, 09/09/2019 Goals and Care Preferences Disciplines: Fci, Physical Therapy, Occupational Therapy, SHARED Goal Met? Visit Notes Goal Associated Outcome Problem No SN Cardiac: SN Patient/Caregiver will Cardiac: demonstrate ability to Coping manage cardiac effects Alteration and recommended lifestyle from changes Lifestyle Changes No SN DM: Patient/Caregiver SN DM: will provide teach back Knowledge of complications of DM Deficit Related to Diabetes No SN : Patient/Caregiver SN : will verbalize methods of Knowledge UTI prevention and S/S of Deficit UTI by the end of the Related to episode of care UTI No Shared: Advance Shared: directives obtained, or Advance if not, requested 3 times Directives by agency No Shared: Patient will be Shared: able to teach back Diabetes: diabetic foot care Knowledge Deficit Related to Diabetic Foot Care No Shared: Patient/Caregiver Shared: will verbalize Medication understanding of Management medication regimen and demonstrate ability to safely manage meds by the end of the episode of care No Shared: Patient will Shared: achieve adequate pain Pain control Management Description: with pain reduced to patient stated goal of 2/10 No Shared: Patient/Caregiver Shared: will progress towards Patient goals and achieve them Strength, Goals and Care Preference s Variance Visit Notes Intervention Associated Status Problem/Go al Patientinstructed on: Controlling Stress and Cardiovascular Health (Romulo). Patient response to teaching: teach back provided, but additional instruction needed. SN Cardiac: Instruct on Problem: Completed Stress and Coping with SN Cardiac Disease Cardiac: Coping Alteration from Lifestyle Changes Goal: SN Cardiac: Patient/Ca regiver will demonstrat e ability to manage cardiac effects and recommende d lifestyle changes Patient instructed on complications of diabetes mellitus: Energy Engineer Complications of Diabetes (Romulo). Patient response to teaching: teach back provided, but additional instruction needed. SN DM: Instruct Problem: Completed Patient/Caregiver on SN DM: Complications of Diabetes Knowledge Deficit Related to Diabetes Goal: SN DM: Patient/Ca regiver will provide teach back of complicati ons of DM Patient instructed in: Understanding Urinary Tract Infections (Romulo), Strategies to prevent urinary tract infection: drink plenty of fluids, complete bladder emptying, good hygiene, How to recognize signs and symptoms of infection: urgency, frequency, burning with urination, low back pain, oral fever greater than 101 F, change in coloer, odor of urine, confusion and When to notify home care agency and/or physician: signs/symptoms of infection, blood, cloudy or change in urine color or odor, catheter is leaking, blocked, has fallen out. Patient response to teaching: teach back provided, but additional instruction needed. SN : Assess and Problem: Completed Instruct in SN : Signs/Symptoms of UTI Knowledge Deficit Related to UTI Goal: SN : Patient/Ca regiver will verbalize methods of UTI prevention and S/S of UTI by the end of the episode of care Advance Directives should be requested up to 3 times. Once these are either obtained or requested 3 times, this problem/intervention can be resolved. Also resolve it patient does not have advance directives or refuses/reports inability to give to agency. Advance Directives status: on file. Shared: Advance Problem: Completed Directives Shared: Requested/Obtained Advance Description: Directives Patient has Health Care Goal: Directive yes Shared: Durable Power of Control Systems Developer Advance (DPOA), Health Care Power directives of Control Systems Developer (HCPOA) and obtained, Living Will or if not, Copy Obtained: yes requested Location of original 3 times by document: on file agency Patient instructed in diabetic foot care of: Diabetes: Keeping Feet Healthy (Romulo). Patient response to teaching: teach back provided. Shared: Instruct Diabetic Problem: Completed Foot Care Shared: Description: Diabetes: Assess/Instruct in Knowledge diabetic foot care, Deficit including monitoring for Related to skin lesions, education Diabetic on proper foot care. Foot Care Goal: Shared: Patient will be able to teach back diabetic foot care Patient reports no changes/question/concerns about medication list. Shared: Medication Problem: Completed Regimen Review Including Shared: Name, Dose, Frequency, Medication and Route Management Description: Goal: Assess/review medications Shared: for adherence, new Patient/Ca orders, errors, regiver questions/concerns, will presence in the home. verbalize understand ing of medication regimen and demonstrat e ability to safely manage meds by the end of the episode of care Assessed patient's pain. Patient instructed in pain management techniques, including: medication management. Patient response to teaching: teach back provided. Shared: Asess/Instruct on Problem: Completed Pain Shared: Monitoring/Management Pain Description: Management Assess/Instruct in Goal: interventions to monitor Shared: and mitigate pain: Patient medication will management/monitoring, achieve Joint protection/work adequate simplification pain techniques, Proper control adaptive equipment, Modification/adaptation of home/activity and Proper body mechanics Patient demonstrates progress towards the stated goals by end of episode. Shared: Patient Goals Problem: Completed Description: Shared: Patient stated goals: Patient increase strength, Strength, managing symptoms at Goals and home, be treated at home, Care walk without getting Preference short of breath, go to s baptism, visit family, Goal: cook own meals and bathe Shared: and dress without Patient/Ca assistance. regiver will progress towards goals and achieve them documented in this encounter
--- OUTSIDE RECORDS SUMMARY | 2019-11-28 22:12 | XMS REPORT | Encounter Summary ---
Author Author [facility] Organization [facility] Address Unknown Phone Unavailable Care Team Providers Care Community Marketing Coordinator Name Role Phone Ebony Sharp MD PCP Reason for Visit * HH Auth Cert Referred By Contact Referred To Contact Status Reason Specialty Diagnoses / Procedures Encounter Details Care Team Description Date Type Department Vanessa Burch, PT PT DISCIPLINE DISCHARGE 10/25/[address] [facility] Care and [facility] [address] [address] Social History Date Tobacco Use [...] Signs Reading Time Taken Comments Vital Sign 116/78 10/25/2019 1:40 PM [employer]ILDLIFE [employer] PROFESSOR Blood Pressure 76 10/25/2019 1:40 PM WILDLIFE ECOLOGY PROFESSOR Pulse 36.7 C (98 F) 10/25/2019 1:40 PM WILDLIFE ECOLOGY PROFESSOR Temperature 16 10/25/2019 1:40 PM WILDLIFE ECOLOGY PROFESSOR Respiratory Rate 98% 10/25/2019 1:40 PM WILDLIFE ECOLOGY PROFESSOR Oxygen Saturation - - Inhaled Oxygen Concentration - - Weight - - Height - - Body Mass Index documented in this encounter Plan of Treatment Care Team Description Date [place] [address] [place] [address] [phone] 02/29/2020 Office Visit Urology documented as of this encounter Visit Diagnoses Not on filedocumented in this encounter Home Health Visit - Care Plan Visit Type - PT Discipline Discharge Discipline - Physical Therapy Status Goals Interventions Problem Descriptio Start Date n Resolved on 10/25/2019 1 goal linked to scheduled/documented intervention 3 goal interventions scheduled/documented in this visit PT COPD: Decreased 10/05/2019 Aerobic Tolerance Disciplines: Physical Therapy Resolved on 10/25/2019 1 goal linked to scheduled/documented intervention 1 goal intervention scheduled/documented in this visit PT: Decreased Gait Skills 10/05/2019 Disciplines: Physical Therapy Resolved on 10/25/2019 1 goal linked to scheduled/documented intervention 1 goal intervention scheduled/documented in this visit PT: Decreased Knowledge 10/05/2019 of Home Exercise Program Disciplines: Physical Therapy Resolved on 10/25/2019 1 goal linked to scheduled/documented intervention 1 goal intervention scheduled/documented in this visit PT: Lower Extremity/Trunk 10/05/2019 Impairment Disciplines: Physical Therapy Active 1 goal linked to scheduled/documented intervention 1 goal intervention scheduled/documented in this visit Shared: Diabetes: 09/09/2019 Knowledge Deficit Related to Diabetic Foot Care Disciplines: Half-Way, Physical Therapy, Occupational Therapy, SHARED Active 1 goal linked to scheduled/documented intervention 1 goal intervention scheduled/documented in this visit Shared: Medication Management 09/09/2019 Management and Disciplines: Education Half-Way, Physical of All Therapy, Occupational Home Therapy, SHARED Medication s Including Prescripti on and OTC. Active 1 goal linked to scheduled/documented intervention 1 goal intervention scheduled/documented in this visit Shared: Pain Management 09/09/2019 Disciplines: Half-Way, Physical Therapy, Occupational Therapy, SHARED Active 1 goal linked to scheduled/documented intervention 1 goal intervention scheduled/documented in this visit Shared: Patient Strength, 09/09/2019 Goals and Care Preferences Disciplines: Half-Way, Physical Therapy, Occupational Therapy, SHARED Goal Met? Visit Notes Goal Associated Outcome Problem Yes PT COPD: Patient will PT COPD: Achieved have improved aerobic Decreased tolerance in order to Aerobic maximize functional Tolerance activity Description: Patient will tolerate 10 minutes of dynamic standing activity in order to simulate improved aerobic capacity for walking room to room, walking to mailbox and community ambulation within 3 weeks. Yes PT: Patient will improve PT: Achieved ambulation Decreased Description: Gait to allow 150 feet using Skills no assistive device or single point cane with modified independence assist in order to safely access all living areas in home and safely access community in 4 weeks Yes PT: Patient to be PT: Achieved independent in home Decreased exercise program Knowledge Description: of Home of seated and standing Exercise exercises in 4 weeks Program Yes PT: Patient to increase PT: Lower Achieved lower extremity/trunk Extremity/ strength Trunk Description: Impairment as indicated by: sit to stand score of 5 reps, in order to maximize functional independence in home, reduce burden of care for caregiver and reduce risk of falls within 4 weeks No Shared: Patient will be Shared: able [...] Visit Notes Intervention Associated Status Problem/Go al Patient instructed on how to balance activity/rest. Patient response to teaching: teach back provided. PT: Instruct Energy Problem: Completed Conservation PT COPD: Decreased Aerobic Tolerance Goal: PT COPD: Patient will have improved aerobic tolerance in order to maximize functional activity Patient instructed on Using Oxygen Safely (Krames) and O2 tubing management. Patient response to instruction: return demonstration provided. PT: Instruct on Oxygen Problem: Completed Use PT COPD: Decreased Aerobic Tolerance Goal: PT COPD: Patient will have improved aerobic tolerance in order to maximize functional activity Breathing exercises: Patient instructed and returned demonstration of pursed lip breathing. Patient required no verbal cues. PT: Shortness of Breath Problem: Completed Management PT COPD: Decreased Aerobic Tolerance Goal: PT COPD: Patient will have improved aerobic tolerance in order to maximize functional activity Patient instructed in and performed ambulation 200 feet on level with multiple turns using no assistive device with no assistance. PT: Gait Training Problem: Completed PT: Decreased Gait Skills Goal: PT: Patient will improve ambulation Patient was instructed in and returned demonstration of seated and standing home exercise program with occasional verbal cues for continuing after discharge. PT: Establish or Upgrade Problem: Completed Home Exercise Program PT: Decreased Knowledge of Home Exercise Program Goal: PT: Patient to be independen t in home exercise program Patient was instructed and returned demonstration in: Seated: ankle pumps, marching, hip add, hip abd and LAQ x 20 reps Standing: heel raises, marching , hip abd, partial squats and hamstring curls x 20 reps . Patient required occasional verbal cues for continuing after discharge. Performance improved by improved recruitment of LEs. PT: Lower Extremity/Trunk Problem: Completed Strengthening Exercise PT: Lower Extremity/ Trunk Impairment Goal: PT: Patient to increase lower extremity/ trunk strength Patient instructed in diabetic foot care of: Diabetes: Inspecting Feet (Kraeleuterio). Patient response to teaching: teach back provided. [...] instructed in pain management techniques, including: medication monitoring and activity modifications. Patient response to teaching: teach back provided. Shared: Asess/Instruct on Problem: Completed Pain Shared: Monitoring/Management Pain Description: Management Assess/Instruct in Goal: interventions to monitor Shared: and mitigate pain: Patient medication will management/monitoring, achieve Joint protection/work adequate simplification pain techniques, Proper control adaptive equipment, Modification/adaptation of home/activity and Proper body mechanics Patient demonstrates progress towards the stated goals by walking safely in the house. Shared: Patient Goals Problem: Completed Description: Shared: Patient stated goals: Patient increase strength, Strength, managing symptoms at Goals and home, be treated at home, Care walk without getting Preference short of breath, go to s orthodoxy, visit family, Goal: cook own meals and bathe Shared: and dress without Patient/Ca assistance. regiver will progress towards goals and achieve them documented in this encounter
--- OUTSIDE RECORDS SUMMARY | 2019-11-28 22:12 | XMS REPORT | Clinical Summary ---
Author Author [facility] Organization [facility] Address Unknown Phone Unavailable Care Team Providers Care Instrument Tech Name Role Phone Ebony Sharp MD PCP Allergies Comments Active Allergy Reactions Severity Noted Date Reaction from oxygen nasal cannula Latex, Natural Rubber Hives Low 05/23/20 18 Lisinopril Anaphylaxis High 01/06/2016 Angioedema Metformin Anaphylaxis High 12/31/2015 Sulfa (Sulfonamide Hives, Medium 09/05/2015 Antibiotics) Itching Medications End Date Status Medication Sig Dispensed Refills Start Date Active OXYGEN THERAPY 2 L/min as 0 needed. 01/14/2028 Active ipratropium-albuterol Inhale 3 mL 4 360 mL 11 (DUO-NEB) 0.5-3 mg/3 mL (four) times 6 nebulizer a day. Additional Information Patient taking differently: 3 mL Inhalation 4 times daily PRN, Reported on 06/22/2019 10:20 AM Active insulin syringe (BD Inject under 100 each 0 08/26 ULTRA-FINE) 0.3 mL 31 the skin 8 gauge x 5/16 daily. use as directed Active insulin syringe 0.3 mL 31 USE 100 each 1 gauge x 5/16 DIRECTED 8 Active atorvastatin (LIPITOR) 40 Take 1 tablet 90 tablet 1 MG tablet (40 mg total) 9 by mouth daily. Additional Information Patient taking differently: 40 mg Oral Nightly, Reported on 06/22/2019 10:20 AM Active vit A/vit Take by mouth 0 C/biotin/zinc/copper daily. ([id number],VIT A,C-BIOTIN, ORAL) Active amitriptyline (ELAVIL) 25 Take 1 tablet 90 tablet 1 MG tablet (25 mg total) 9 by mouth nightly. Active citalopram (CELEXA) 20 mg Take 1 tablet 90 tablet 1 tablet (20 mg total) 9 by mouth daily. Active phenazopyridine Take 1 tablet 9 tablet 0 08/02/20 1 (PYRIDIUM) 200 MG (200 mg 9 tabletIndications: total) by dysuria mouth 3 (three) times a day as needed for pain. Active tolterodine (DETROL) 2 MG Take 1 tablet 30 tablet 0 tablet (2 mg total) 9 by mouth 2 (two) times a day. 08/27/2020 Active albuterol Inhale 2 1 Inhaler 0 (PROAIR/PROVENTIL/VENTOLI puffs every 6 0 N) 90 mcg/actuation HFA (six) hours inhaler as needed for wheezing. Active lactobacillus Take 2 20 capsule 0 (CULTURELLE) 10 billion capsules by 0 cell capsule mouth daily. Active hydroCHLOROthiazide Take 1 tablet 30 tablet 0 08/23 (HYDRODIURIL) 25 MG (25 mg total) 0 tablet by mouth daily. Active SITagliptin (JANUVIA) 50 Take 2 30 tablet 0 0 MG tabletIndications: tablets (100 0 type 2 diabetes mellitus mg total) by mouth daily. Active insulin glargine (LANTUS Inject 25 10 mL 0 0 U-100 INSULIN) 100 Units under 0 unit/mL injection the skin nightly. Active hyoscyamine (LEVSIN/SL) Dissolve 1 30 tablet 0 0.125 mg SL tablet (0.125 0 tabletIndications: mg total) Ureteral calculus, left under the tongue every 4 (four) hours as needed. Active fluconazole (DIFLUCAN) Take 1 tablet 5 tablet 0 0 100 MG tablet (100 mg 0 total) by mouth daily. Active cephalexin (KEFLEX) 500 Take 1 15 capsule 0 MG capsule capsule (500 0 mg total) by mouth 3 (three) times a day. Active traMADol (ULTRAM) 50 mg Take 1 tablet 8 tablet 0 tablet (50 mg total) 0 by mouth every 6 (six) hours as needed for pain. Max Daily Dose: 200 mg Active oxyCODONE-acetaminophen Take 1 tablet 30 tablet 0 (PERCOCET) 5-325 mg per by mouth 0 tablet every 4 (four) hours as needed for pain. Max Daily Dose: 6 tablets Active BREO ELLIPTA 200-25 INHALE 1 PUFF 60 each 2 09/24 mcg/dose BY MOUTH 0 INHALERIndications: DAILY Chronic obstructive pulmonary disease, unspecified COPD type (HCC) Active nitrofurantoin, Take 100 mg 0 macrocrystal-monohydrate, by mouth 2 0 (MACROBID) 100 MG capsule (two) times a day. Active gabapentin (NEURONTIN) Take 2 540 capsule 1 300 MG capsule capsules (600 0 mg total) by mouth 3 (three) times a day. Active metoprolol tartrate Take 1 tablet 180 tablet 1 (LOPRESSOR) 100 MG tablet (100 mg 0 total) by mouth 2 (two) times a day. Active cyclobenzaprine TAKE 1 90 tablet 0 (FLEXERIL) 10 MG tablet TABLET(10 MG) 0 BY MOUTH THREE TIMES DAILY NEEDED FOR MUSCLE SPASMS 10/30/2019 Discontinued metoprolol tartrate TAKE 1 TABLET 180 tablet 0 06/24 (LOPRESSOR) 100 MG tablet BY MOUTH 9 TWICE DAILY 11/27/2019 Discontinued cyclobenzaprine TAKE 1 90 tablet 0 (FLEXERIL) 10 MG tablet TABLET(10 MG) 0 BY MOUTH THREE TIMES DAILY NEEDED FOR MUSCLE SPASMS 10/30/2019 Discontinued gabapentin (NEURONTIN) TAKE 2 540 capsule 0 300 MG capsule CAPSULES BY 0 MOUTH THREE TIMES DAILY Active Problems Patient Care Coordination Note Ms. Isiah Benítez is a 65 y.o. female with hx of HTN, IDDM, COPD presents with shortness of breath, failed OP therapy. Likely COPD exacerbation. Started on Levaquin, steroids, breathing treatments and supplemental oxygen, with improvement. Problem Noted Date Chronic respiratory failure 09/18/2019 Last Assessment & Plan: Pulmonary hygiene Continue home COPD regimen Ureteral calculus, left 09/17/2019 Last Assessment & Plan: S/P left ureteral stent placement on 08/30 without improvement, cystoscopy with stent removal and lithotripsy 09/21 Urology recommends follow-up in 1 to 2 weeks Detrol LA pyridium Generalized abdominal pain 09/17/2019 Last Assessment & Plan: Resolved Suspected UTI 09/17/2019 Last Assessment & Plan: Resolved Completed 5 days Rocephin Hypertension 09/05/2019 Last Assessment & Plan: - Add HCTZ Severe obesity (BMI >= 40) 08/31/2019 Last Assessment & Plan: - Counseled on weight loss Severe sepsis (HCC)/ pyelonephritis 08/30/2019 Last Assessment & Plan: Sepsis resolved, s/p stent placement, f oley left in place, improving. - Will need to follow up with urology i n 2-3 weeks Pyelonephritis 08/30/2019 left Ureteral stone with hydronephrosis 08/30/2019 Last Assessment & Plan: S/p left ureteral stent placement by Ur ology on 08/30/19. F/u for definitive treatment Flomax, strain urine COPD exacerbation (HCC)/ Acute on chronic hypoxemic r espiratory failure 08/30/2019 Last Assessment & Plan: +RSV - Taper steroids q 3 days - Titrate off O2 as able Acute on chronic respiratory failure 08/30/2019 Last Assessment & Plan: - Due to COPD & RSV Type 2 diabetes mellitus with hyperglycemia, with sheri g-term current use of 08/30/2019 insulin Last Assessment & Plan: Resume home basal with level V SSI Hematemesis 08/30/2019 Last Assessment & Plan: Hb remains stable - Cont PPI Acute vaginitis 08/30/2019 Last Assessment & Plan: Fluconazole 150mg qOD X 3 days Kidney stones 07/14/2019 Urethral diverticulum 06/21/2019 Carpal tunnel syndrome, bilateral 02/13/2019 Bilateral hand pain 01/13/2019 Sweating increase 12/12/2018 Influenza A 08/29/2017 Last Assessment & Plan: Continue tamfilu Closed left ankle fracture 04/09/2017 Last Assessment & Plan: Postoperative Day # 3 s/p Left ankle re vision arthrodesis -Management by primary service Renal calculus 02/05/2017 Overview: 06/21/2019 Snyder is a 68-year-old female with a few week history of left knee pain. She underwent a CT scan at [facility] demonstrated proximal a 1.5 cm left lower pole stone. No evidence of hydronephrosis or right-sided stone burden. She denies any gross hematuria and/or passage of stone material. She has no history of nephrolithiasis. Denies any fevers chills nausea or vomiting. Options for management of ureteral ston e were discussed in detail with the patient and daughter. They include med ical expulsive therapy, ESWL as outpatient, vs ureteroscopy with laser lithotripsy, stone extraction and stent. The risks, benefits and complic ations of each were reviewed. Based on the patients symptoms, medical cond ition, lab and radiographic findings it was determined that ureteroscopy wit h laser lithotripsy, stone extraction and stent would be their bes t option. The risks and complications include, but are not limi lexis to: bleeding, infection, damage to surrounding organs (urethra, bladder , ureter, development of ureteral stricture), inability to treat stone in a single setting requiring secondary procedures and stent irritati on. The patient and daughter had a chance to ask questions which were answ ered to their satisfaction and voiced clear understanding of the proce dure. They elect to proceed with Cystoscopy, Left retrograde pyelogram, ureteroscopy with laser lithotripsy, stone extraction and stent. - Pre-op Labs - Ucx 07/14/2019 Patient returns today [address] a left ureteroscopy for a large lower pole stone. Intra-Op had some ve nous oozing from renal epithelium. Resents today with significant stent di scomfort unfortunately KUB demonstrates the stone to be broken up but certainly still present. We discussed removing her stent and simple observation versus a repeat ureteroscopy. She would like to underg o a repeat ureteroscopy. I refilled medications including Uribel, trospium, and hydrocodone due to significant discomfort. - Left Ureteroscopy next week 08/10/2019 Left URS/stone extraction/stent change performed 08/02 Left ureteral stent removed today (see procedure note). FU 2 months with Renal US and Stone maureen lysis 09/29/2019 Unfortunately approximately 1 month aft er her ureteral stent was removed she presented to [facility] with i ncreasing flank pain was found to have a 4 to 5 mm left proximal ureteral fragment. She was also diagnosed with a UTI and sepsis at that time. Sh e was taken the OR by Dr. Aragon for a left ureteral stent placement. P atient subsequent went to ureteroscopy with stone extraction and stent exchange. She presents today for stent removal. Fluconazole Keflex Tramadol PRN FU 2 months with renal us L ast Assessment & Plan: - 9x7 L renal calculus - pt aware - no hydronephrosis COPD exacerbation 02/04/2017 Last Assessment & Plan: Change steroids to po duonebs tamiflu Supportive care. Post-op pain 08/07/2016 Last Assessment & Plan: Patient with ankle fusion in July a nd follows closely with ortho -on MS contin 15 BID and oxycodone 10mg PRN for chronic pain Morbid obesity due to excess calories 07/10/2016 Last Assessment & Plan: Complicates all aspects of care Counseled on lifestyle modifications an d risk reduction strategies SASHA on CPAP 06/30/2016 Last Assessment & Plan: CPAP at bedtime Type 2 diabetes mellitus with hyperglycemia, with sheri g-term current use of 06/29/2016 insulin Last Assessment & Plan: Continue Lantus 25 units at bedtime Severe allergy listed to metformin Start Januvia Follow-up endocrinology as an outpatien t Likely made worse by recent steroid use Essential hypertension 06/29/2016 Last Assessment & Plan: Continue chronic home medications Iron deficiency 02/21/2016 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 Resolved Problems Problem Noted Date Resolved Date Confusion 09/20/2019 09/23/2019 Last Assessment & Plan: Resolved Elevated LFTs 09/20/2019 09/23/2019 Last Assessment & Plan: Mild Likely 2/2 fatty liver and acute infect ion RUQ US without acuity, hepatic steatosi s Sinus tachycardia 08/30/2019 08/31/2019 Last Assessment & Plan: Fluid resuscitate, resume home rodri cheung tor Influenza 08/29/2017 08/31/2017 Acute bleeding 08/08/2016 01/11/2019 Last Assessment & Plan: Bleeding after left ankle surgery yeste rday Splint was reapplied in ED yesterday Stable, dressings D/I Hgb 11.6, VSS Ortho consulted, per note yesterday ant icipated discharge today Draining postoperative wound 08/08/2016 9 Bleeding 08/07/2016 01/11/2019 Acute on chronic respiratory failure with hypoxia 06/30/20 16 07/02/2016 Last Assessment & Plan: sats 85% on room air on admit Overnight on 06/30 , sats continued to b e 88% on room air Reports being on home oxygen PRN at 2L , usually after exertion or nightly with c-pap --continue abx --steroids, switched to oral this am --rate protocol --oxygen, titrate to sats > 92% Tachycardia 06/30/2016 07/02/2016 Last Assessment & Plan: Likely multifactorial, receiving breath ing treatments, metoprolol held due to copd exacerbation; Improved with addition of metoprolol; H R now in 90's EKG [address] --continue metoprolol COPD exacerbation 06/29/2016 07/02/2016 Last Assessment & Plan: Pt mildly hypoxemic on admit; remained 88% on room air overnight, still requiring supplemental oxygen CXR with Left basal opacity with partia l obscuration of the left hemidiaphragm could reflect atelectasis . Infection not excluded. CTA negative for PE 2/4 SIRS criteria --HR and RR; afebrile ; wbc 6--unlikely sepsis, likely due to copd exacerbation procal < 0.05 --continue levaquin, steroids and breat jordan treatments --RATE protocol --titrate oxygen to sats > 92% --check procal SASHA (obstructive sleep apnea) 02/21/2016 01/12/20 19 Acute chest pain 02/14/2016 08/08/2016 Type 2 diabetes mellitus without complication 09/24/2015 02/04/2017 Last Assessment & Plan: A1c 8.6% this month Continue Lantus at HS AC/HS accu checks CC, SH diet Hypertension 09/24/2015 08/08/2016 Encounters Care Team Description Date Type Specialty Ebony Sharp MD Other 11/24/2019 Refill Primary Care Ebony Sharp MD Other 10/29/2019 Refill Primary Care Ebony Sharp MD Other 10/27/2019 Refill Primary Care Auyr Louis RN SN OASIS DISCHARGE 10/26/2019 Home Care Visit Home Health Service s Vanessa Burch, PT PT DISCIPLINE DISCHARGE 10/25/2019 Home Care Visit Home Health Service s Shannon Rangel LPN SN HOME VISIT 10/19/2019 Home Care Visit [facility] s Vanessa Burch, PT PT HOME VISIT 10/19/2019 Home Care Visit Home Health Service s Urinary tract infection with out hematuria, site unspecified (Primary Dx); Flank pain 10/18/2019 Emergency Emergency Medicine Gaby Wolff OT OT DISCIPLINE DISCHARGE 10/18/2019 Home Care Visit Home Health Service s Gaby Wolff OT OT HOME VISIT 10/16/2019 Home Care Visit Home Health Service s Ebony Sharp MD Other 10/13/2019 Refill Primary Care Art Watts II, Other 10/13/2019 Refill Shannon Rangel LPN SN HOME VISIT 10/12/2019 Home Care Visit Home [facility] s Vanessa Burch, PT PT HOME VISIT 10/12/2019 Home Care Visit Home [facility] s Gaby Wolff OT OT HOME VISIT 10/11/2019 Home Care Visit Home Health Service s Letty Ragland RN 10/11/2019 Telephone Primary Care Vanessa Burch, PT PT HOME VISIT 10/10/2019 Home Care Visit Home [facility] s Gaby Wolff OT OT HOME VISIT 10/09/2019 Home Care Visit [facility] s Vanessa Burch, PT PT INITIAL EVALUATION 10/05/2019 Home Care Visit [facility] s Shannon Rangel LPN SN MISSED VISIT DOCUMENTATION 10/05/2019 Home Care Visit Home Health Service s Darin Huber MD Canceled (Rescheduled) 10/04/2019 Hospital Radiology Encounter Gaby Wolff OT OT INITIAL EVALUATION 10/04/2019 Home Care Visit Home Health Service [facility] Ebony Sharp MD Type 2 diabetes mellitus with hyperglyce prasanna, 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) (Primary Dx); Mixed hyperlipidemia; Hypertension, unspecified type 10/03/2019 Office Visit Primary Care Sherley Dixon CASE CONFERENCE 10/03/2019 Home Care Visit Home Health Service s Aury Louis RN SN MISSED VISIT DOCUMENTATION 10/02/2019 Home Care Visit Home Health Service s Gaby Wolff, THELMA TELEPHONE ENCOUNTER 10/02/2019 Home Care Visit Home Health Service s Celso Palma DO Flank pain (Primary Dx) 10/01/2019 Emergency Emergency Medicine Darin Huber MD Nephrolithiasis 09/29/2019 Imaging Radiology Appointment Darin Huber MD Ureteral calculus, left (Primary Dx); Renal calculus 09/29/2019 Procedure visit Urology Aury Louis RN SN OASIS RESUMPTION OF CARE 09/27/2019 Home Care Visit Home [facility] Letty Ragland RN 09/27/2019 Telephone Primary Care Melva Stephenson RN CASE COMMUNICATION 09/27/2019 Home Care Visit Home Health Service s Sherley Dixon TELEPHONE ENCOUNTER 09/26/2019 Home Care Visit Home Health Service s Sherley Dixon TELEPHONE ENCOUNTER 09/26/2019 Home Care Visit Home Health Service s Ramses Dixonwna L TELEPHONE ENCOUNTER 09/25/2019 Home Care Visit Home Health Service s Janet Aragon MD 09/22/2019 Telephone Urology Omar Kidd MD 09/22/2019 Orders Only General Surgery Jermaine Hines MD Pennington, Daryl L, RN RIB MATCHER AND FITTER 09/21/2019 Anesthesia General Surgery Event Janet Aragon MD CYSTOSCOPY, LEFT URETERAL STENT REMOVAL 09/21/2019 Surgery General Surgery Thania Perez, GEORGE CASE COMMUNICATION 09/19/2019 Home Care Visit Home Health Service s Aury Louis RN SN MISSED VISIT DOCUMENTATION 09/18/2019 Home Care Visit Home Health Service s Aury Louis RN SN OASIS TRANSFER W/OUT DC 09/18/2019 Home Care Visit Home Health Service s Luciano Funes MD Hassan, Samrina, MD Hospitalist, Physician Art Watts II, DO Pyelonephritis (Primary Dx); Sepsis, due to unspecified organism, unspecified whether acute organ dysfunction present (HCC); Ureteral calculus, left; Chronic respiratory failure, unspecified whether with hypoxia or hypercapnia (HCC); Chronic obstructive pulmonary disease, unspecified COPD type (HCC); Essential hypertension; Generalized abdominal pain; Morbid obesity due to excess calories (HCC); SASHA on CPAP; Suspected UTI; Type 2 diabetes mellitus with hyperglycemia, 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); Confusion; Elevated LFTs 09/17/2019 Hospital - Encounter 09/23/2019 Shannon Rangel LPN SN HOME VISIT 09/15/2019 Home Care Visit Home Health Service s Darin Huber MD Nephrolithiasis (Primary Dx) 09/14/2019 Orders Only Urology Shannon Rangel LPN SN MISSED VISIT DOCUMENTATION 09/13/2019 Home Care Visit Home Health Service s Karen Levin RN SN OASIS START OF CARE 09/09/2019 Home Care Visit Home Health Service s Rosy Herrmann RN TELEPHONE ENCOUNTER 09/08/2019 Home Care Visit Home Health Service s Delores Barton RN 09/07/2019 Telephone Primary Care Ariel Hernandez MD Pendergraft, Melinda D, RN RIB MATCHER AND FITTER 08/30/2019 Anesthesia General Surgery Event Janet Aragon MD CYSTOSCOPY, LEFT RETROGRADE PYELOGRAM, A ND LEFT URETERAL STENT INSERTION 08/30/2019 Surgery General Surgery Dirk Valencia MD Lee, Jessica, DO Avila, Christopher, MD Kidney stone (Primary Dx); Pyelonephritis; Sepsis, due to unspecified organism, unspecified whether acute organ dysfunction present (HCC); Ureteral stone; Severe sepsis (HCC); Ureteral stone with hydronephrosis; Acute kidney injury (HCC); left Ureteral stone with hydronephrosis; Severe sepsis (HCC)/ pyelonephritis 08/30/2019 Hospital Intensive Care - Encounter 09/07/2019 from Last 3 Months Immunizations Name Administration Dates Next Due Influenza QIV (IM) 07/09/2017, 05/09/2016, Influenza Virus Vaccine, 07/06/2013 Split Virus (Incl. Purified Surface Antigen)-retired Code Influenza, Seasonal, 06/08/2012 Injectable Pneumococcal 05/09/2016 Polysaccharide 23-Valent Seasonal Trivalent 07/23/2018 Influenza Vaccine, Adjuvanted, Preservative Free Family History Medical History Relation Name Comments COPD Brother Mikey Heart attack Brother Edward Stroke Brother Edward Heart attack Brother Jermone Stroke Brother Jermone Heart attack Brother Tirone Stroke Brother Tirone Cancer Father Cirrhosis Father Stroke Father Cancer Mother Stroke Mother Alcohol abuse Sister Gregorio Hypertension Sister Gregorio Other Sister Gregorio back problems Alzheimer's disease Sister Lucy Diabetes Sister Cate Hypertension Sister Cate Stroke Sister Cate Stroke Sister Dionne Relation Name Status Comments Brother Mikey Alive Brother Dutch Brother Shauna Brother Tirone Father Mother Sister Gregorio Alive Sister Lucy Alive Sister Cate Sister Dionne Social History Date Tobacco Use Types Packs/Day [...] Signs Reading Time Taken Comments Vital Sign 165/100 10/26/2019 2:27 PM INSULATOR HELPER Blood Pressure 78 10/26/2019 2:27 PM INSULATOR HELPER Pulse 35.9 C (96.6 F) 10/26/2019 2:27 PM INSULATOR HELPER Temperature 14 10/26/2019 2:27 PM INSULATOR HELPER Respiratory Rate 95% 10/26/2019 2:27 PM INSULATOR HELPER Oxygen Saturation - - Inhaled Oxygen Concentration 95.3 kg (210 lb) 10/18/2019 2:08 PM INSULATOR HELPER Weight 157.5 cm (5' 2") 10/18/2019 2:08 PM INSULATOR HELPER Height 38.41 10/18/2019 2:08 PM INSULATOR HELPER Body Mass Index Plan of Treatment Care Team Description [place] [id number] [place] [id number] [phone] 02/29/2020 Office Visit Urology Health Maintenance Due Date Last Done Comments Diabetes Mellitus 1950 Ophthalmology Exam Spirometry # 1952 Diabetes Mellitus Foot 1962 Exam Mammogram Screening 01/06/2012 01/05/2011 Pneumococcal Vaccine: 65+ 2017 05/09/2016 Years (1 of 2 - PCV13) Lipid Screening 04/07/2019 04/07/2018, 04/07/2018, 04/08/2017, Additional history exists Diabetes Mellitus Urine 09/12/2019 09/12/2018, Microalbumin 04/08/2017, 09/24/2015 Colorectal Screening via 12/24/2019 12/23/2009 Colonoscopy Diabetes Mellitus 03/21/2020 09/21/2019, Hemoglobin A1C 06/13/2019, 01/13/2019, Additional history exists Influenza Vaccine (Season 09/30/2020 07/23/2018, Post poned from 06/23/2020 (Patient Refused) Ended) 07/09/2017, 05/09/2016, Additional history exists Medicare Annual Wellness 10/03/2020 10/03/2019, 10/03/2019, 12/12/2018, Additional history exists Fall Risk Assessment # 10/18/2020 10/18/2019, 10/03/2019, 10/03/2019 Zoster Vaccine# (1 of 2) 11/29/2020 Postponed fro m 2002 (Insurance / Financial) Osteoporosis Screening 09/12/2023 09/12/2018, 03/18/2016, 02/25/2016 Hepatitis C Screen Completed 04/07/2018, 04/07/2018 Td # Discontinued Implants Device Identifier Shelf Expiration Date Model / Serial / L ot Implanted Type Area Manufactur er [id number] / / Implant Screw Locking 4.5mm X 38mm Non-Tissue Left: Ankle PADILLA [id number] - [id number] Implant MEDICAL Implanted: Qty: 1 on 04/09/2017 by Adelaida Olivas MD at [facility] [id number] / / Implant Screw Non-Locking 4.5mm X Non-Tissue Left: Ankle PADILLA 38mm [id number] - [id number] Implant MEDICAL Implanted: Qty: 1 on 04/09/2017 by Adelaida Olivas MD at [facility] [id number] / / Implant Screw Locking 4.5mm X 30mm Non-Tissue Left: Ankle PADILLA [id number] - [id number] Implant MEDICAL Implanted: Qty: 1 on 04/09/2017 by Adelaida Olivas MD at [facility] [id number] / / Implant Screw Locking 4.5mm X 28mm Non-Tissue Left: Ankle PADILLA [id number] - [id number] Implant MEDICAL Implanted: Qty: 1 on 04/09/2017 by Adelaida Olivas MD at [facility] [id number] / / Implant Screw Locking 5.5mm X 28mm Non-Tissue Left: Ankle PADILLA [id number] - [id number] Implant MEDICAL Implanted: Qty: 1 on 04/09/2017 by Adelaida Olivas MD at [facility] [id number] / / Implant Screw Roxane 8.0mm X 45mm Non-Tissue Left: Ankle ADÁN [id number] - [id number] Implant ORTHO Implanted: Qty: 1 on 04/09/2017 by Adelaida Olivas MD at [facility] / / Implant Plate Sml Ortholoc Lft Non-Tissue Left: Ankle PADILLA [id number] - [id number] Implant MEDICAL Implanted: Qty: 1 on 04/09/2017 by Adelaida Olivas MD at [facility] [id number] / NA / Implant Screw Locking 4.5mm X 36mm Non-Tissue Left: Ankle PADILLA [id number] - [id number] Implant MEDICAL Implanted: Qty: 1 on 04/09/2017 by Adelaida Olivas MD at [facility] 01/18/2020 [id number] / / [id number] Implant Mesh Ventralight St 6" X Non-Tissue N/A: Abdomen BARD DAVOL 15.2" Synthetic [id number] Implant SURGICAL [id number] Implanted: Qty: 1 on 05/25/2018 by Medardo Tate MD at [facility] 03/01/2022 180-222 / / [id number] Implant Stent Ureteral Contour 6fr Non-Tissue Left: Urete r BOSTON X 24cm W/O Guidwire Implant SCIENTIFIC 180-222/[id number] - [id number] Implanted: Qty: 1 on 08/02/2019 by Darin Huber MD at [facility] 05/07/2022 180-223 / / [id number] Implant Stent Ureteral Contour 6fr Non-Tissue Left: Urete r BOSTON X 26cm W/O Guidwire Implant [employer] 180-223/[id number] - [id number] Implanted: Qty: 1 on 08/30/2019 by Janet Aragon MD at [facility] 06/21/2022 180-223 / NA / [id number] Implant Stent Ureteral Contour 6fr Non-Tissue Left: Urete r BOSTON X 26cm W/O Guidwire Implant SCI[employer] 180-223/[id number] - Sna Implanted: Qty: 1 on 09/21/2019 by Janet Aragon MD at [facility] 10/15/2018 [id number] / N/A / [id number] Implant Allograft Bio Viable Human Tissue Left: Ankle ADÁN Tissue Matrix 10ml [id number] - Sn/A Implant OR THO Implanted: Qty: 1 on 04/09/2017 by Adelaida Olivas MD at [facility] 11/20/2017 [id number] / N/A / [id number] Implant Bone Human Tissue Graft Kit Tissue Left: James PADILLA 3.0ml [id number] - Sn/A Implant MEDICAL Implanted: Qty: 1 on 04/09/2017 by Adelaida Olivas MD at [facility] Intraocular Lens Bilateral: Eye Hardware Screws Left: Ankle Artificial Joint Bilateral: Knee [id number] / NA / NA 8.0 X 45 Pt Cannulated Screw Left: Ankle ADÁN Implanted: Qty: 1 on 04/09/2017 by Adelaida Ford MD at [facility] Device Identifier Shelf Expiration Date Model / Serial / L ot Explanted Type Area Manufactur er 0848-1450 / / Implant Screw Non-Locking 4.5mm X Non-Tissue Left: Ankle PADILLA 30mm [id number] - [id number] Implant MEDICAL Explanted: Qty: 1 on 04/09/2017 at [facility] 06/04/2018 10-1320M / [id number] / NA Implant Stimulator Bone Growth Mini Non-Tissue Left: James beard BIOMET Osteogen W/Mesh Cathod 10-1320m - Implant TRAU CECILIO [id number] Implanted: Qty: 1 on 04/09/2017 by Adelaida Olivas MD at [facility] 07/13/2019 180-232 / / [id number] Implant Stent Ureteral Contour 7fr Non-Tissue Left: Urete r BOSTON X 24cm W/O Guidwire Implant SCIENTIFIC 180-232/[id number] - [id number] Implanted: Qty: 1 on 06/28/2019 by Darin Huber MD at [facility] Explanted: Qty: 1 on 08/02/2019 at [facility] Procedures Comments Procedure Name Priority Date/Time Associated Diag nosis CT ABDOMEN PELVIS WO STAT 10/18/2019 CONTRAST 6:44 PM INSULATOR HELPER URINALYSIS MICROSCOPIC STAT 10/18/2019 ONLY 6:15 PM INSULATOR HELPER URINALYSIS REFLEX STAT 10/18/2019 6:15 PM INSULATOR HELPER CULTURE, URINE STAT 10/18/2019 6:15 PM INSULATOR HELPER COMPREHENSIVE METABOLIC STAT 10/18/2019 PANEL 6:07 PM INSULATOR HELPER CBC AND DIFF (MANUAL DIFF STAT 10/18/2019 IF NECESSARY) 6:07 PM INSULATOR HELPER LACTATE VENOUS WB Timed 10/01/2019 3:[address] ABDOMEN PELVIS WO STAT 10/01/2019 CONTRAST 1:56 PM INSULATOR HELPER LACTATE VENOUS WB STAT 10/01/2019 1:36 PM INSULATOR HELPER LIPASE STAT 10/01/2019 1:36 PM INSULATOR HELPER COMPREHENSIVE METABOLIC STAT 10/01/2019 PANEL 1:36 PM INSULATOR HELPER CBC AND DIFF (MANUAL DIFF STAT 10/01/2019 IF NECESSARY) 1:36 PM INSULATOR HELPER URINALYSIS MICROSCOPIC STAT 10/01/2019 ONLY 12:24 PM INSULATOR HELPER URINALYSIS REFLEX STAT 10/01/2019 12:24 PM INSULATOR HELPER CULTURE, URINE STAT 10/01/2019 12:24 PM INSULATOR HELPER POCT UA W MICRO ONLY Routine 09/29/2019 Ureteral calculus, left 1:01 PM INSULATOR HELPER XR ABDOMEN SINGLE VIEW AP Routine 09/29/2019 Neph rolithiasis 12:10 PM INSULATOR HELPER GLUCOSE POC Routine 09/23/2019 12:11 PM INSULATOR HELPER GLUCOSE POC Routine 09/23/2019 8:09 AM INSULATOR HELPER BASIC METABOLIC PANEL Routine 09/23/2019 3:03 AM INSULATOR HELPER CBC AND DIFF (MANUAL DIFF Routine 09/23/2019 IF NECESSARY) 3:03 AM INSULATOR HELPER GLUCOSE POC Routine 09/22/2019 11:39 PM INSULATOR HELPER GLUCOSE POC Routine 09/22/2019 7:36 PM INSULATOR HELPER GLUCOSE POC Routine 09/22/2019 4:31 PM INSULATOR HELPER GLUCOSE POC Routine 09/22/2019 12:16 PM INSULATOR HELPER GLUCOSE POC Routine 09/22/2019 7:54 AM INSULATOR HELPER GLUCOSE POC Routine 09/22/2019 5:03 AM INSULATOR HELPER GLUCOSE POC Routine 09/22/2019 12:22 AM INSULATOR HELPER GLUCOSE POC Routine 09/21/2019 10:24 PM INSULATOR HELPER GLUCOSE POC Routine 09/21/2019 7:16 PM INSULATOR HELPER GLUCOSE POC Routine 09/21/2019 4:53 PM INSULATOR HELPER PULSE OXIMETRY, Routine 09/21/2019 CONTINUOUS 4:10 PM INSULATOR HELPER GLUCOSE POC Routine 09/21/2019 3:05 PM INSULATOR HELPER FL RETROGRADE UROGRAPHY Routine 09/21/2019 IN OR 2:52 PM INSULATOR HELPER STONE ANALYSIS Timed 09/21/2019 2:33 PM INSULATOR HELPER CYSTOSCOPY, RETROGRADE 09/21/2019 N20.1 PYELOGRAM, URETEROSCOPY, 2:01 PM INSULATOR HELPER LASER LITHOTRIPSY, WITH URETERAL STENT PLACEMENT Special Needs ROOM 4043LINDA ORDERING HOMIUM LASER jtBIOMED NOTIFIED REMOVAL, STENT, URETER, 09/21/2019 N20.1 CYSTOSCOPIC 2:01 PM INSULATOR HELPER Special Needs ROOM 4043LINDA ORDERING HOMIUM LASER jtBIOMED NOTIFIED GLUCOSE POC Routine 09/21/2019 11:34 AM INSULATOR HELPER GLUCOSE POC Routine 09/21/2019 7:40 AM INSULATOR HELPER TRIIODOTHYRONINE Add-On 09/21/2019 3:43 AM INSULATOR HELPER T4 FREE Add-On 09/21/2019 3:43 AM INSULATOR HELPER THYROID CASCADE Add-On 09/21/2019 3:43 AM INSULATOR HELPER HEMOGLOBIN A1C Add-On 09/21/2019 3:43 AM INSULATOR HELPER CBC AND DIFF (MANUAL DIFF Routine 09/21/2019 IF NECESSARY) 3:43 AM INSULATOR HELPER COMPREHENSIVE METABOLIC Routine 09/21/2019 PANEL 3:43 AM INSULATOR HELPER GLUCOSE POC Routine 09/20/2019 11:58 PM INSULATOR HELPER GLUCOSE POC Routine 09/20/2019 8:23 PM INSULATOR HELPER GLUCOSE POC Routine 09/20/2019 5:01 PM INSULATOR HELPER GLUCOSE POC Routine 09/20/2019 11:20 AM INSULATOR HELPER GLUCOSE POC Routine 09/20/2019 7:35 AM INSULATOR HELPER US ABDOMEN LIMITED Routine 09/20/2019 6:07 AM INSULATOR HELPER GLUCOSE POC Routine 09/20/2019 4:06 AM INSULATOR HELPER LACTATE VENOUS WB Timed 09/20/2019 2:19 AM INSULATOR HELPER COMPREHENSIVE METABOLIC Routine 09/20/2019 PANEL 2:19 AM INSULATOR HELPER CBC AND DIFF (MANUAL DIFF Routine 09/20/2019 IF NECESSARY) 2:19 AM INSULATOR HELPER GLUCOSE POC Routine 09/20/2019 12:03 AM INSULATOR HELPER LACTATE VENOUS WB Timed 09/19/2019 11:12 PM INSULATOR HELPER TROPONIN Timed 09/19/2019 11:12 PM INSULATOR HELPER GLUCOSE POC Routine 09/19/2019 10:26 PM INSULATOR HELPER XR CHEST 2 VIEWS (PA AND Routine 09/19/2019 LATERAL) 9:[address] HEAD WO CONTRAST STAT 09/19/2019 9:12 PM INSULATOR HELPER LACTATE VENOUS WB Timed 09/19/2019 8:15 PM INSULATOR HELPER TROPONIN Timed 09/19/2019 8:15 PM INSULATOR HELPER GLUCOSE POC Routine 09/19/2019 7:45 PM INSULATOR HELPER GLUCOSE POC Routine 09/19/2019 5:09 PM INSULATOR HELPER CULTURE, BLOOD Timed 09/19/2019 4:56 PM INSULATOR HELPER LIPASE Add-On 09/19/2019 4:53 PM INSULATOR HELPER LACTATE VENOUS WB Routine 09/19/2019 4:53 PM INSULATOR HELPER COMPREHENSIVE METABOLIC STAT 09/19/2019 PANEL 4:53 PM INSULATOR HELPER COMPLETE BLOOD COUNT STAT 09/19/2019 4:53 PM INSULATOR HELPER TROPONIN STAT 09/19/2019 4:53 PM INSULATOR HELPER CULTURE, BLOOD Timed 09/19/2019 4:53 PM INSULATOR HELPER GLUCOSE POC Routine 09/19/2019 4:35 PM INSULATOR HELPER ECG Routine 09/19/2019 3:45 PM INSULATOR HELPER GLUCOSE POC Routine 09/19/2019 3:23 PM INSULATOR HELPER GLUCOSE POC Routine 09/19/2019 11:48 AM INSULATOR HELPER URINALYSIS MICROSCOPIC Routine 09/19/2019 ONLY 11:35 AM INSULATOR HELPER URINALYSIS REFLEX Routine 09/19/2019 11:35 AM INSULATOR HELPER CULTURE, URINE Routine 09/19/2019 11:35 AM INSULATOR HELPER GLUCOSE POC Routine 09/19/2019 7:43 AM INSULATOR HELPER GLUCOSE POC Routine 09/19/2019 3:40 AM INSULATOR HELPER GLUCOSE POC Routine 09/18/2019 11:31 PM INSULATOR HELPER GLUCOSE POC Routine 09/18/2019 9:03 PM INSULATOR HELPER GLUCOSE POC Routine 09/18/2019 5:14 PM INSULATOR HELPER GLUCOSE POC Routine 09/18/2019 12:16 PM INSULATOR HELPER CBC AND DIFF (MANUAL DIFF Routine 09/18/2019 IF NECESSARY) 9:49 AM INSULATOR HELPER GLUCOSE POC Routine 09/18/2019 8:41 AM INSULATOR HELPER BASIC METABOLIC PANEL Routine 09/18/2019 8:06 AM INSULATOR HELPER GLUCOSE POC Routine 09/18/2019 4:07 AM INSULATOR HELPER GLUCOSE POC Routine 09/18/2019 12:04 AM INSULATOR HELPER LACTATE VENOUS WB Timed 09/17/2019 10:39 PM INSULATOR HELPER GLUCOSE POC Routine 09/17/2019 7:58 PM INSULATOR HELPER LACTATE VENOUS WB Timed 09/17/2019 7:24 PM INSULATOR HELPER GLUCOSE POC Routine 09/17/2019 5:10 PM INSULATOR HELPER LACTATE VENOUS WB Timed 09/17/2019 3:47 PM INSULATOR HELPER TROPONIN Timed 09/17/2019 3:47 PM INSULATOR HELPER CULTURE, BLOOD STAT 09/17/2019 1:02 PM INSULATOR HELPER LACTATE VENOUS WB STAT 09/17/2019 12:38 PM INSULATOR HELPER TROPONIN STAT 09/17/2019 12:38 PM INSULATOR HELPER CULTURE, BLOOD STAT 09/17/2019 12:38 PM INSULATOR HELPER URINALYSIS MICROSCOPIC STAT 09/17/2019 ONLY 10:05 AM INSULATOR HELPER URINALYSIS REFLEX STAT 09/17/2019 10:05 AM INSULATOR HELPER CULTURE, URINE STAT 09/17/2019 10:[address] ABDOMEN PELVIS W STAT 09/17/2019 CONTRAST 8:59 AM INSULATOR HELPER LIPASE STAT 09/17/2019 8:38 AM INSULATOR HELPER TROPONIN STAT 09/17/2019 8:38 AM INSULATOR HELPER CBC AND DIFF (MANUAL DIFF STAT 09/17/2019 IF NECESSARY) 8:38 AM INSULATOR HELPER COMPREHENSIVE METABOLIC STAT 09/17/2019 PANEL 8:38 AM INSULATOR HELPER XR CHEST SINGLE VIEW STAT 09/17/2019 FRONTAL 7:58 AM INSULATOR HELPER ECG STAT 09/17/2019 7:44 AM INSULATOR HELPER PULSE OXIMETRY, STAT 09/17/2019 CONTINUOUS 7:43 AM INSULATOR HELPER GLUCOSE POC Routine 09/07/2019 12:06 PM INSULATOR HELPER GLUCOSE POC Routine 09/07/2019 6:03 AM INSULATOR HELPER GLUCOSE POC Routine 09/07/2019 12:13 AM INSULATOR HELPER GLUCOSE POC Routine 09/06/2019 5:43 PM INSULATOR HELPER GLUCOSE POC Routine 09/06/2019 12:32 PM INSULATOR HELPER XR CHEST SINGLE VIEW Routine 09/06/2019 FRONTAL 5:28 AM INSULATOR HELPER GLUCOSE POC Routine 09/06/2019 3:45 AM INSULATOR HELPER BASIC METABOLIC PANEL Routine 09/06/2019 3:28 AM INSULATOR HELPER COMPLETE BLOOD COUNT Routine 09/06/2019 3:28 AM INSULATOR HELPER GLUCOSE POC Routine 09/05/2019 11:06 PM INSULATOR HELPER GLUCOSE POC Routine 09/05/2019 7:53 PM INSULATOR HELPER GLUCOSE POC Routine 09/05/2019 5:42 PM INSULATOR HELPER GLUCOSE POC Routine 09/05/2019 1:01 PM INSULATOR HELPER GLUCOSE POC Routine 09/05/2019 11:51 AM INSULATOR HELPER GLUCOSE POC Routine 09/05/2019 5:44 AM INSULATOR HELPER BASIC METABOLIC PANEL Routine 09/05/2019 2:01 AM INSULATOR HELPER COMPLETE BLOOD COUNT Routine 09/05/2019 2:01 AM INSULATOR HELPER GLUCOSE POC Routine 09/04/2019 11:13 PM INSULATOR HELPER GLUCOSE POC Routine 09/04/2019 8:28 PM INSULATOR HELPER GLUCOSE POC Routine 09/04/2019 5:41 PM INSULATOR HELPER CULTURE, BLOOD Timed 09/04/2019 11:32 AM INSULATOR HELPER CULTURE, BLOOD Timed 09/04/2019 11:22 AM INSULATOR HELPER GLUCOSE POC Routine 09/04/2019 11:18 AM INSULATOR HELPER GLUCOSE POC Routine 09/04/2019 5:09 AM INSULATOR HELPER GLUCOSE POC Routine 09/04/2019 12:13 AM INSULATOR HELPER TROPONIN STAT 09/03/2019 9:00 PM INSULATOR HELPER GLUCOSE POC Routine 09/03/2019 8:35 PM INSULATOR HELPER ECG STAT 09/03/2019 8:23 PM INSULATOR HELPER GLUCOSE POC Routine 09/03/2019 6:11 PM INSULATOR HELPER GLUCOSE POC Routine 09/03/2019 12:15 PM INSULATOR HELPER BASIC METABOLIC PANEL Routine 09/03/2019 4:47 AM INSULATOR HELPER COMPLETE BLOOD COUNT Routine 09/03/2019 4:47 AM INSULATOR HELPER GLUCOSE POC Routine 09/02/2019 11:30 PM INSULATOR HELPER GLUCOSE POC Routine 09/02/2019 7:53 PM INSULATOR HELPER GLUCOSE POC Routine 09/02/2019 5:07 PM INSULATOR HELPER GLUCOSE POC Routine 09/02/2019 11:37 AM INSULATOR HELPER GLUCOSE POC Routine 09/02/2019 5:15 AM INSULATOR HELPER COMPLETE BLOOD COUNT Routine 09/02/2019 4:08 AM INSULATOR HELPER BASIC METABOLIC PANEL Routine 09/02/2019 4:08 AM INSULATOR HELPER GLUCOSE POC Routine 09/01/2019 11:44 PM INSULATOR HELPER GLUCOSE POC Routine 09/01/2019 9:12 PM INSULATOR HELPER GLUCOSE POC Routine 09/01/2019 5:42 PM INSULATOR HELPER GLUCOSE POC Routine 09/01/2019 11:54 AM INSULATOR HELPER GLUCOSE POC Routine 09/01/2019 8:01 AM INSULATOR HELPER GLUCOSE POC Routine 09/01/2019 6:16 AM INSULATOR HELPER XR CHEST SINGLE VIEW Routine 09/01/2019 FRONTAL 5:13 AM INSULATOR HELPER BASIC METABOLIC PANEL Routine 09/01/2019 1:50 AM INSULATOR HELPER GLUCOSE POC Routine 08/31/2019 11:48 PM INSULATOR HELPER COMPLETE BLOOD COUNT Routine 08/31/2019 5:58 PM INSULATOR HELPER XR CHEST SINGLE VIEW STAT 08/31/2019 FRONTAL 5:39 PM INSULATOR HELPER GLUCOSE POC Routine 08/31/2019 5:38 PM INSULATOR HELPER US RENAL Routine 08/31/2019 2:11 PM INSULATOR HELPER PEP DEVICE Routine 08/31/2019 11:50 AM INSULATOR HELPER RESPIRATORY PANEL BY PCR Routine 08/31/2019 11:35 AM INSULATOR HELPER GLUCOSE POC Routine 08/31/2019 11:32 AM INSULATOR HELPER GLUCOSE POC Routine 08/31/2019 5:05 AM INSULATOR HELPER BASIC METABOLIC PANEL Routine 08/31/2019 5:00 AM INSULATOR HELPER COMPLETE BLOOD COUNT Routine 08/31/2019 5:00 AM INSULATOR HELPER GLUCOSE POC Routine 08/31/2019 1:42 AM INSULATOR HELPER LACTATE VENOUS WB Timed 08/30/2019 10:51 PM INSULATOR HELPER TROPONIN Timed 08/30/2019 10:51 PM INSULATOR HELPER LACTATE VENOUS WB Routine 08/30/2019 7:10 PM INSULATOR HELPER TROPONIN Timed 08/30/2019 7:10 PM INSULATOR HELPER BIPAP Routine 08/30/2019 6:11 PM INSULATOR HELPER GLUCOSE POC Routine 08/30/2019 5:16 PM INSULATOR HELPER GLUCOSE STAT 08/30/2019 4:48 PM INSULATOR HELPER GLUCOSE POC Routine 08/30/2019 4:35 PM INSULATOR HELPER FL RETROGRADE UROGRAPHY STAT 08/30/2019 IN OR 4:20 PM INSULATOR HELPER GLUCOSE POC Routine 08/30/2019 4:00 PM INSULATOR HELPER CULTURE, URINE Timed 08/30/2019 3:54 PM INSULATOR HELPER CULTURE, FUNGUS Timed 08/30/2019 3:54 PM INSULATOR HELPER CULTURE, AFB Timed 08/30/2019 3:54 PM INSULATOR HELPER CYSTOSCOPY, WITH 08/30/2019 LEFT URETERAL STENO SIS RETROGRADE PYELOGRAM AND 3:24 PM INSULATOR HELPER URETERAL STENT INSERTION GLUCOSE POC Routine 08/30/2019 2:57 PM INSULATOR HELPER GLUCOSE POC Routine 08/30/2019 2:55 PM INSULATOR HELPER URINALYSIS MICROSCOPIC STAT 08/30/2019 ONLY 2:14 PM INSULATOR HELPER URINALYSIS REFLEX STAT 08/30/2019 2:14 PM INSULATOR HELPER CULTURE, URINE STAT 08/30/2019 2:14 PM INSULATOR HELPER CULTURE, BLOOD STAT 08/30/2019 1:34 PM INSULATOR HELPER CULTURE, BLOOD STAT 08/30/2019 1:[address] ABDOMEN PELVIS W STAT 08/30/2019 CONTRAST 12:48 PM INSULATOR HELPER FLU PCR STAT 08/30/2019 12:29 PM INSULATOR HELPER ED PROCEDURE BASIC - Routine 08/30/2019 CRITICAL CARE 12:21 PM INSULATOR HELPER FECAL OCCULT BLOOD STAT 08/30/2019 INPATIENT 12:14 PM INSULATOR HELPER MAGNESIUM Routine 08/30/2019 12:13 PM INSULATOR HELPER NTPROBNP STAT 08/30/2019 12:13 PM INSULATOR HELPER TROPONIN STAT 08/30/2019 12:13 PM INSULATOR HELPER LACTATE VENOUS WB STAT 08/30/2019 12:13 PM INSULATOR HELPER LIPASE STAT 08/30/2019 12:13 PM INSULATOR HELPER COMPREHENSIVE METABOLIC STAT 08/30/2019 PANEL 12:13 PM INSULATOR HELPER CBC AND DIFF (MANUAL DIFF STAT 08/30/2019 IF NECESSARY) 12:13 PM INSULATOR HELPER XR CHEST SINGLE VIEW STAT 08/30/2019 FRONTAL 11:51 AM INSULATOR HELPER ECG STAT 08/30/2019 11:46 AM INSULATOR HELPER from Last 3 Months Results * CT Abdomen Pelvis wo contrast (10/18/2019 6:44 PM INSULATOR HELPER) Only the most recent of 2 results within the time period is included. Specimen Impressions Performed At 1. No acute abdominal or pelvic process. No hydrone phrosis or renal MCKESSON calculi. 2. Hepatomegaly with diffuse hepatic steatosis. 3. Coronary artery atherosclerosis. READING SITE: [facility] ATTESTATION STATEMENT: The Staff Radiol ogist has personally reviewed the images and dictated, reviewed, or edite d the final report. Narrative Performed At Patient: ISIAH BENÍTEZ Sex#: F #: [id number] #: [id number] Location: [facility]- Procedure Requested: [id number] CT ABDOM EN PELVIS WO CONTRAST Reason for Exam: left flank pain Exam Ordered: 10/18/2019 18 31 Exam Date/Time: 10/18/2019 184 4 Begin exam date/time: 10/18/[address] ABDOMEN PELVIS WO CONTRAST INDICATION: Left flank pain Patient pre sents to the ED from home via EMS, Patient reprots left flank pain x3 days, and pain with urination. denies N/V, reports diarrhea. reports h x of kidney stones. TECHNIQUE: CT of the abdomen and pelvis without contrast. Coronal and sagittal reformatted images were perfor med. COMPARISON: CT abdomen and pelvis 2019 FINDINGS: No free air, free fluid, or f luid collection. Lower chest: Bilateral dependent atelec tasis. Calcified pulmonary granulomas. Coronary artery atheroscler osis. ABDOMEN: Liver: Liver is enlarged measuring 21.3 cm. Diffuse hepatic steatosis. No low attenuation lesions. Gallbladder and biliary: Cholecystectom y. Normal caliber bile ducts. Spleen: Normal size spleen without low attenuation lesions. Calcified granulomas. Pancreas: The pancreas is normal in att enuation without peripancreatic inflammatory changes. No pancreatic areli t dilation. Adrenal glands: Normal size adrenal gla nds. Kidneys and ureters: Normal size kidney s and ureters. No renal stones. No hydronephrosis. GI tract, Mesentery: Stomach is decompr essed. Normal caliber small bowel. Normal caliber colon. Normal yassine endix. Vascular structures: Normal caliber abd ominal aorta. Mild calcified atherosclerosis. Retroperitoneum, Lymph nodes: No lympha denopathy in the abdomen or pelvis. PELVIS: Genitourinary system: Decompressed urin emigdio bladder. Hysterectomy. No adnexal mass. SKELETAL STRUCTURES AND SOFT TISSUES: N o fracture or destructive lesions in the visualized skeleton. Soft tissue nodularity along the left anterior lower abdominal wall may relat e to recent injection. Multilevel thoracal lumbar spondylosis. 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 Procedure Note Interface, Rad Results In - 10/18/2019 7:12 PM INSULATOR HELPER Patient: ISIAH BENÍTEZ Sex#: Paulina #: [id number] Jose#: [id number] Location: [facility]- Procedure Requested: [id number] CT ABDOMEN PELVIS WO CONTRAST Reason for Exam: left flank pain Exam Ordered: 10/18/20191830 Exam Date/Time: 10/18/20191843 Begin exam date/time: 10/18/20191830 CT ABDOMEN PELVIS WO CONTRAST INDICATION: Left flank pain Patient presents to the ED from home via EMS, Patient reprots left flank pain x3 days, and pain with urination. denies N/V, reports diarrhea. reports hx of kidney stones. TECHNIQUE: CT of the abdomen and pelvis without contrast. Coronal and sagittal reformatted images were performed. COMPARISON: CT abdomen and pelvis October 01, 2019 FINDINGS: No free air, free fluid, or fluid collection. Lower chest: Bilateral dependent atelectasis. Calcified pulmonary granulomas. Coronary artery atherosclerosis. ABDOMEN: Liver: Liver is enlarged measuring 21.3 cm. Diffuse hepatic steatosis. No low attenuation lesions. Gallbladder and biliary: Cholecystectomy. Normal caliber bile ducts. Spleen: Normal size spleen without low attenuation lesions. Calcified granulomas. Pancreas: The pancreas is normal in attenuation without peripancreatic inflammatory changes. No pancreatic duct dilation. Adrenal glands: Normal size adrenal glands. Kidneys and ureters: Normal size kidneys and ureters. No renal stones. No hydronephrosis. GI tract, Mesentery: Stomach is decompressed. Normal caliber small bowel. Normal caliber colon. Normal appendix. Vascular structures: Normal caliber abdominal aorta. Mild calcified atherosclerosis. Retroperitoneum, Lymph nodes: No lymphadenopathy in the abdomen or pelvis. PELVIS: Genitourinary system: Decompressed urinary bladder. Hysterectomy. No adnexal mass. SKELETAL STRUCTURES AND SOFT TISSUES: No fracture or destructive lesions in the visualized skeleton. Soft tissue nodularity along the left anterior lower abdominal wall may relate to recent injection. Multilevel thoracal lumbar spondylosis. Mild osteoarthritis of the bilateral hips. IMPRESSION 1. No acute abdominal or pelvic process . No hydronephrosis or renal calculi. 2. Hepatomegaly with diffuse hepatic st eatosis. 3. Coronary artery atherosclerosis. READING SITE: [facility] ATTESTATION STATEMENT: The Staff Radiologist has personally reviewed the images and dictated, reviewed, or edited the final report. Performing Organization Address [facility] one Number LEVI * Urinalysis Microscopic Only (10/18/2019 6:15 PM INSULATOR HELPER) Only the most recent of 5 results within the time period is included. Microscopic RBC 0-5 0 - 5 /hpf [facility] Microscopic WBC >40 (A) 0 - 5 /hpf [facility] Epithelial Large (A) Absent [facility] Cells [facility] Hyaline Cast Large (A) Absent [facility] Bacteria Small (A) Absent [facility] Specimen Clean Voided Urine Performing Organization Address [facility] one Number [facility] [address] [place] [id number] [facility] [facility] [address] [place] [address] [facility] * Urinalysis Reflex (10/18/2019 6:15 PM INSULATOR HELPER) Only the most recent of 5 results within the time period is included. Appearance, Yellow [facility] Glucose Urine >=1000 (A) Negative mg/dL [facility] Bilirubin Urine Negative Negative [facility] Ketones Urine Negative Negative mg/dL [facility] Specific 1.021 1.001 - 1.030 [facility] Hemoglobin Negative Negative [facility] PH Urine 5.0 5.0 - 8.0 [facility] Protein Urine Trace (A) Negative mg/dL [facility] Qual [facility] Urobilinogen Negative Negative EU/dL [facility] Urine [facility] Nitrite Urine NegativeComment: Culture Negative [facility] Ordered [facility] Leukocyte Positive (A) Negative [facility] Esterase [facility] Specimen Clean Voided Urine Performing Organization Address City/State/[facility] Ph one Number [facility] [address] [place] [address] [place] [facility] [address] [facility] [place] [address] [facility] * Culture, Urine (10/18/2019 6:15 PM INSULATOR HELPER) Only the most recent of 6 results within the time period is included. Culture Result Three or more bacterial [facility] species isolated from urine Hospital Lab indicates colonization or fecal contamination. Submission of a repeat specimen is suggested. Specimen Clean Voided Urine Performing Organization Address City/State/[facility] Ph one Number [facility] [address] [place] [address] LABORATORIES [facility] [address] [place] [id number] * Comprehensive Metabolic Panel (10/18/2019 6:07 PM INSULATOR HELPER) Only the most recent of 7 results within the time period is included. Sodium 137 133 - 147 MEQ/L [facility] Potassium 3.5 3.5 - 5.3 MEQ/L [facility] Chloride 99 96 - 112 MEQ/L [facility] Carbon Dioxide 30 20 - 32 MEQ/L [facility] Anion Gap 8 5 - 17 [facility] Calcium 8.7 8.4 - 10.5 mg/dL [facility] Glucose 343 (H) 70 - 100 mg/dL [facility] Protein Total 7.7 6.0 - 8.2 g/dL [facility] Serum [facility] Albumin 4.1 3.5 - 5.0 g/dL [facility] Alkaline 86 42 - 140 IU/L [facility] Phosphatase [facility] Alanine 26 0 - 34 IU/L [facility] Aminotransferas [facility] Aspartate 35 15 - 46 IU/L [facility] Aminotransferas [facility] Bilirubin Total 0.2 0.2 - 1.3 mg/dL [facility] Blood Urea 9 7 - 26 mg/dL [facility] Nitrogen [facility] Creatinine 0.7 0.4 - 1.1 mg/dL [facility] [facility] eGFR Female AA 100 60 - 200 [facility] mL/min/1.73sq [facility] eGFR Female 83 60 - 200 [facility] Non-AA mL/min/1.73sq [facility] Specimen Blood Performing Organization Address City/State/Zipcode Ph one Number [facility] [address] [place] [address] [facility] [address] [facility] [place] [address] [facility] * CBC and Diff (manual diff if necessary) (10/18/2019 6:07 PM INSULATOR HELPER) Only the most recent of 8 results within the time period is included. WBC 8.72 4.00 - 11.00 TH/uL [facility] RBC 3.86 (L) 4.00 - 5.00 MIL/[facility]L [facility] Hemoglobin 12.6 12.0 - 15.0 g/dL [facility] Hematocrit 39 36 - 45 % [facility] MCV 100 (H) 80 - 99 fL [facility] MCH 33 27 - 34 pg [facility] MCHC 33 32 - 36 % le[facility]leugenia Zazuetas [facility] RDW 14.3 11.5 - 14.5 % leoneleugenia Zaz[facility] Platelet Count 234 140 - 400 TH/uL [facility]oneleugenia Zaz[facility]as [facility] MPV 9.9 9.4 - 12.3 fL leoneleugenia Zazuetas [facility] Nucleated RBCs 0 0 - 0 /100 [facility] % Neutrophils 54 45 - 78 % [facility] Cedric Zazuetas [facility] [facility] %Lymphocytes 34 15 - 47 % [facility] %Monocytes 10 0 - 12 % [facility] %Eosinophils 2 0 - 7 % [facility] %Basophils 1 0 - 2 % [facility] % Imm Grans 1 0 - 1 % [facility] # Granulocytes 4.67 1.7 - 6.8 TH/uL leoneleugenia Z[facility]eta's [facility] # Lymphocytes 2.94 1.0 - 3.3 TH/uL leoneleugenia Zazuetas [facility] # Monocytes 0.86 0.2 - 0.9 TH/uL [facility]oneleugenia [facility] # Eosinophils 0.16 0.0 - 0.4 TH/uL [facility] # Basophils 0.05 0.0 - 0.1 TH/uL [facility] Specimen Blood Performing Organization Address City/State/Zipcode Ph one Number [facility] [address] [facility] [place] [address] [facility] [facility] [address] [facility] [place] [address] [facility] * Lactate Venous WB (10/01/2019 3:48 PM INSULATOR HELPER) Only the most recent of 13 results within the time period is included. Lactate Venous 2.3 (H) 0.0 - 2.0 mmol/L [facility] Specimen Blood Narrative Performed At Reflex sepsis screen >2.0 [facility] Performing Organization Address City/[facility] Ph one Number [facility] [address] [facility], [place] [id number] [facility] [facility] [address] [place] [address] [facility] [facility] [address] [place] [facility] [place] [address], [facility] * Lipase (10/01/2019 1:36 PM INSULATOR HELPER) Only the most recent of 4 results within the time period is included. Lipase 105 23 - 300 IU/L [facility] Specimen Blood Performing Organization Address City/[facility] Ph one Number [facility] [address] [facility] [place] [id number] [facility] [address] [place] [address] [facility] [facility] * POCT UA w Micro Only (Small Stick) (09/29/2019 1:01 PM INSULATOR HELPER) Appearance, Comment: Stent Urine Glucose Urine 250 (A) Negative mg/dL Bilirubin Urine Negative Negative Ketones Urine Negative Negative Specific 1.020 1.001 - 1.030 Nichols, UA Hemoglobin Large (A) Negative Urine PH Urine 5.5 5.0 - 8.0 Protein Urine 30 (A) Negative Qual Urobilinogen 0.2 Negative EU/dL Urine Nitrite Urine Negative Negative Leukocyte Small (A) Negative Esterase Microscopic rbc 10-20, wbc 3-5 Examination Specimen Urine * XR Abdomen single view AP (09/29/2019 12:10 PM INSULATOR HELPER) Specimen Impressions Performed At Left ureteral stent. No renal or bladder calculi. [facility] DEST[place]EE Nonobstructive bowel gas pattern. Previ ous cholecystectomy. Narrative Performed At Patient: ISIAH BENÍTEZ Sex#: F #: 1950 Jose #: [id number] Location: XR 4 Procedure Requested: [id number] XR ABDOM EN SINGLE VIEW AP Reason for Exam: Nephrolithiasis Exam Ordered: 09/29/2019 120 1 Exam Date/Time: 09/29/2019 1210 Begin exam date/time: 09/29/2019 1203 XR ABDOMEN SINGLE VIEW AP Date: 09/29/2019 12:10 PM History: Nephrolithiasis Procedure Note Interface, Rad Results In - 09/29/2019 12:53 PM INSULATOR HELPER Patient: ISIAH BENÍTEZ Sex#: F #: 1950 Jose#: [id number] Location: XR Procedure Requested: [id number] XR ABDOMEN SINGLE VIEW AP Reason for Exam: Nephrolithiasis Exam Ordered: 09/29/2019 1201 Exam Date/Time: 09/29/2019 1210 Begin exam date/time: 09/29/2019 1203 XR ABDOMEN SINGLE VIEW AP Date: 09/29/2019 12:10 PM History: Nephrolithiasis IMPRESSION Left ureteral stent. No renal or bladder calculi. Nonobstructive bowel gas pattern. Previous cholecystectomy. Performing Organization Address [facility] one Number LEVI * GLUCOSE POC (09/23/2019 12:11 PM INSULATOR HELPER) Only the most recent of 81 results within the time period is included. Pathologist [facility] Glucose POC 166 (H) 70 - 100 mg/dL [facility] [employer] [facility] Specimen Performing Organization Address [facility] one Number [facility] [address] [facility] [place], [place] [id number] [facility] [facility] [address] [place] [facility] [place] [address], [facility] * Basic Metabolic Panel (09/23/2019 3:03 AM INSULATOR HELPER) Only the most recent of 8 results within the time period is included. Sodium 135 133 - 147 MEQ/L [facility] Potassium 3.7 3.5 - 5.3 MEQ/L [facility]azueta[facility]ug[facility] Chloride 94 (L) 96 - 112 MEQ/L [facility]az[facility] Carbon Dioxide 36 (H) 20 - 32 MEQ/L [facility] Z[facility]eta[facility] Anion Gap 5 5 - 17 [facility] Calcium 9.0 8.4 - 10.5 mg/dL [facility] Zazuetaeug[facility] Glucose 146 (H) 70 - 100 mg/dL [facility] Centerleone[facility]ug[facility] Blood Urea 30 (H) 7 - 26 mg/dL [facility] Centerfrank Nitrogen [facility] Creatinine 0.7 0.4 - 1.1 mg/dL [facility] Centerleoneleugenia [facility] J[facility]atanSaint [facility] eGFR Female AA 100 60 - 200 [facility] mL/min/1.73sq Cedric Zazueta [facility] eGFR Female 83 60 - 200 [facility] Non-AA mL/min/1.73sq Cedric Zazuetaeugenia [facility] Specimen Blood Performing Organization Address City/State/Zipcode Ph one Number [facility] [address] [place] [address] [facility] [facility] [address] [facility] [place] [address] [facility] * FL Retrograde Urography in OR (09/21/2019 2:52 PM INSULATOR HELPER) Only the most recent of 2 results within the time period is included. Specimen Impressions Performed At Fluoroscopic support for the Urology services. Julesa se see operative LEVI report for details. READING SITE: frank Steele Narrative Performed At Patient: ISIAH BENÍTEZ MCASHWINJEFFREY Sex#: F #: 1950 Jose #: [id number] Location: [facility] MAIN OR NONE Procedure Requested: [id number] FL RETRO GRADE UROGRAPHY IN OR Reason for Exam: pain Exam Ordered: 09/21/2019 14 08 Exam Date/Time: 09/21/2019 145 2 Begin exam date/time: 09/21/2019 135 5 FL RETROGRADE UROGRAPHY IN OR INDICATION: pain TECHNIQUE: Fluoroscopic guidance was ut ilized by the surgical services with images submitted for interpretatio n. No radiologist was present for the procedure. COMPARISON: None. FLUORO TIME: 1.0. NUMBER OF SPOT IMAGES: 2. FINDINGS: Spot fluoroscopic images demo nstrate injection of left renal collecting system with placement of a n ephroureteral stent. Procedure Note Interface, Rad Results In - 09/21/2019 3:21 PM INSULATOR HELPER Patient: ISIAH BENÍTEZ Sex#: F #: 1950 Jose#: [id number] Location: SLE MAIN OR NONE Procedure Requested: [id number] FL RETROGRADE UROGRAPHY IN OR Reason for Exam: pain Exam Ordered: 09/21/2019 1408 Exam Date/Time: 09/21/2019 1452 Begin exam date/time: 09/21/2019 1355 FL RETROGRADE UROGRAPHY IN OR INDICATION: pain TECHNIQUE: Fluoroscopic guidance was utilized by the surgical services with images submitted for interpretation. No radiologist was present for the procedure. COMPARISON: None. FLUORO TIME: 1.0. NUMBER OF SPOT IMAGES: 2. FINDINGS: Spot fluoroscopic images demonstrate injection of left renal collecting system with placement of a nephroureteral stent. IMPRESSION Fluoroscopic support for the Urology services. Please see operative report for details. READING SITE: [facility] Address City/State/[facility] Ph one Number ABIKESSON * Stone Analysis (09/21/2019 2:33 PM INSULATOR HELPER) Stone Color Brown [facility] Stone Size [id number]: Specimen received mm [facility] as fragments. Stone Weight 61.4 mg [facility] Stone CommentComment: Percentage [facility] Composition (Represents the % compositi on) Stone Ca 10 % [facility] oxalate dihydrate Stone Ca 90 % [facility] oxalate monohydr Stone Comment Comment [facility] Comment: Calculi report will follow via computer, mail or care aid delivery. Stone Comment Comment [facility] Comment: Physician questions regarding Calculi Analysis contact [facility] at: [phone]. Disclaimer : Comment [facility] Comment: This test was developed and its performance characteristics determined by [employer]. It has not been cleared or approved by the Food and Drug Administration. Test performed at [employer] [address] [place] [address] [place] [address] Source CommentComment: Left Ureter [facility] Specimen Stone - Left Ureter Performing Organization Address [facility] Ph one Number [facility] [address] [place], [place] [address] [facility] Interface [id number] [place] [id number] [address] [place] [address] Court * Triiodothyronine (09/21/2019 3:43 AM INSULATOR HELPER) Triiodothyronin 0.8 (L) 1.0 - 1.7 ng/mL [facility] Specimen Blood Performing Organization Address City/[facility]/Zipcode Ph one Number [facility] [address] [place] [address] LABORATORIES [facility] Lab [address] [place] [address] * Thyroid [place] (09/21/2019 3:43 AM INSULATOR HELPER) Thyroid 0.37 (L) 0.47 - 4.68 uIU/mL [facility] Hormone [facility] [facility] Specimen Blood Performing Organization Address City/[facility] Ph one Number [facility] [address] [place] [address] [facility] [facility] [address] [address] [facility] * T4 Free (09/21/2019 3:43 AM INSULATOR HELPER) T4 Free 1.0 0.8 - 2.2 ng/dL [facility] Specimen Blood Performing Organization Address City/[facility] Ph one Number [facility] [address] [place], [place] [id number] [facility] [address] [place] [address] [facility] * Hemoglobin A1C (09/21/2019 3:43 AM INSULATOR HELPER) Hemoglobin A1C 12.4 (H) 4.0 - 5.6 % [facility] Comment: Hospital Lab Non-diabetic 4.0 - 5.6 % Prediabetes 5.7 - 6.4 % Diabetes >= 6.5 % Specimen Blood Performing Organization Address City/State/Zipcode Ph one Number [facility] [address] [place] [address] LABORATORIES [facility] [address] [place] [address] * US Abdomen limited (09/20/2019 6:07 AM INSULATOR HELPER) Specimen Impressions Performed At Impression: LEVI 1. Diffuse hepatic steatosis without fo rosalind hepatic lesion. 2. Cholecystectomy. ATTESTATION STATEMENT: The Staff Radiologist has personally re viewed this study and agrees with the findings in this report. READING SITE: [facility] Narrative Performed At Patient: ISIAH BENÍTEZ Sex#: F #: 1950 Jose #: [id number] Location: [place] [address] Access ion#: [id number] Procedure Requested: [id number] US ABDOM EN LIMITED Reason for Exam: elevated LFTs Exam Ordered: 09/19/2019 19 28 Exam Date/Time: 09/20/2019 060 7 Begin exam date/time: 09/20/2019 054 3 US ABDOMEN LIMITED Date: 09/20/2019 6:03 AM Indication: elevated LFTs. Comparison: CT abdomen pelvis August 242019 and renal ultrasound August 31, 2019. Findings: No free fluid in the visualiz ed abdomen. Liver: Diffusely increased hepatic echo genicity without focal mass. The liver measures 14.2 cm craniocaudal. Th e portal vein is patent with anterograde flow. Bile ducts: Common bile duct diameter i s difficult to evaluate but likely measures 0.4 cm. No intrahepatic ductal dilation. Gallbladder: Cholecystectomy. Pancreas: The pancreas is segmentally v isualized and normal where seen. Right kidney: The right kidney is negat jesús for hydronephrosis. It measures 9.6 cm. 1.2 cm simple right re nal cyst. Aorta and IVC: Normal caliber upper abd ominal aorta and IVC. Procedure Note Interface, Rad Results In - 09/20/2019 7:38 AM INSULATOR HELPER Patient: ISIAH BENÍTEZ Sex#: F #: 1950 Jose#: [id number] Location: [facility] 4 [facility] 1 4043- Procedure Requested: [id number] US ABDOMEN LIMITED Reason for Exam: elevated LFTs Exam Ordered: 09/19/2019 1928 Exam Date/Time: 09/20/2019 0607 Begin exam date/time: 09/20/2019 0543 US ABDOMEN LIMITED Date: 09/20/2019 6:03 AM Indication: elevated LFTs. Comparison: CT abdomen pelvis September 17, 2019 and renal ultrasound August 31, 2019. Findings: No free fluid in the visualized abdomen. Liver: Diffusely increased hepatic echogenicity without focal mass. The liver measures 14.2 cm craniocaudal. The portal vein is patent with anterograde flow. Bile ducts: Common bile duct diameter is difficult to evaluate but likely measures 0.4 cm. No intrahepatic ductal dilation. Gallbladder: Cholecystectomy. Pancreas: The pancreas is segmentally visualized and normal where seen. Right kidney: The right kidney is negative for hydronephrosis. It measures 9.6 cm. 1.2 cm simple right renal cyst. Aorta and IVC: Normal caliber upper abdominal aorta and IVC. IMPRESSION Impression: 1. Diffuse hepatic steatosis without foc al hepatic lesion. 2. Cholecystectomy. ATTESTATION STATEMENT: The Staff Radiologist has personally reviewed this study and agrees with the findings in this report. READING SITE: [facility] Performing Organization Address City/[facility] one Number LEVI * Troponin - 3 and 6 hr (09/19/2019 11:12 PM INSULATOR HELPER) Only the most recent of 10 results within the time period is included. Troponin <0.01 0.00 - 0.03 ng/mL [facility] Comment: Cedric Z[facility]eta[facility] Troponin Value [facility] Interpretation 0.00 - 0.03 Healthy 0.04 - 0.12 Increased Cardiac Risk >0.12 Myocardial Infarction Troponin may not become elevated until 6 to 8 hours after onset of symptoms. Specimen Blood Performing Organization Address City/[facility] one Number [facility] [address] [place] [address] [facility] [facility] [address] [place] [address] [facility] [facility] * XR Chest 2 views (PA and lateral) (09/19/2019 9:19 PM INSULATOR HELPER) Specimen Impressions Performed At 1. Bibasilar subsegmental atelectasis. LEVI READING SITE: [facility] Narrative Performed At Patient: ISIAH BENÍTEZ Sex#: F #: 1950 Jose #: [id number] Location: [place] [address] [id number] Access ion#: [id number] Procedure Requested: [id number] XR CHEST 2 VIEWS (PA AND LATERAL) Reason for Exam: dyspnea Exam Ordered: 09/19/2019 15 41 Exam Date/Time: 09/19/2019 211 9 Begin exam date/time: 09/19/2019 211 1 XR CHEST 2 VIEWS (PA AND LATERAL) INDICATION: dyspnea. COMPARISON STUDY: None. FINDINGS: Life Support Devices: None. Lungs/Pleura: Normal lung volume. No fo rosalind airspace disease. Bibasilar subsegmental atelectasis Normal pulmona ry vasculature. No pleural effusion or pneumothorax Heart and Mediastinum: Stable cardiomed iastinal silhouette and great vessels. Bones and Soft Tissues: Stable regional skeleton and soft tissues. Procedure Note Interface, Rad Results In - 09/19/2019 9:54 PM INSULATOR HELPER Patient: ISIAH BENÍTEZ Sex#: F #: 1950 Jose#: [id number] Location: [place] [address]2-08 Procedure Requested: [id number] XR CHEST 2 VIEWS (PA AND LATERAL) Reason for Exam: dyspnea Exam Ordered: 09/19/2019 1541 Exam Date/Time: 09/19/2019 2119 Begin exam date/time: 09/19/2019 2111 XR CHEST 2 VIEWS (PA AND LATERAL) INDICATION: dyspnea. COMPARISON STUDY: None. FINDINGS: Life Support Devices: None. Lungs/Pleura: Normal lung volume. No focal airspace disease. Bibasilar subsegmental atelectasis Normal pulmonary vasculature. No pleural effusion or pneumothorax Heart and Mediastinum: Stable cardiomediastinal silhouette and great vessels. Bones and Soft Tissues: Stable regional skeleton and soft tissues. IMPRESSION 1. Bibasilar subsegmental atelectasis. READING SITE: [facility] Performing Organization Address City/State/Zipcode Ph one Number LEVI * CT Head wo contrast (09/19/2019 9:12 PM INSULATOR HELPER) Specimen Impressions Performed At Impression: LEVI No acute intracranial process. Mild cerebral volume loss. Mild chronic small vessel ischemic disease. The above findings are in general agree ment with those in the preliminary report provided by [employer]. READING SITE: [facility]. ATTESTATION STATEMENT: The Staff Radiol ogist has personally reviewed the images and dictated, reviewed, or edite d the final report. Narrative Performed At Patient: ISIAH BENÍTEZ Sex#: F #: 1950 Jose #: [id number] Location: [facility] 1 4043-01 Access ion#: [id number] Procedure Requested: [id number] CT HEAD WO CONTRAST Reason for Exam: confusion Exam Ordered: 09/19/2019 15 42 Exam Date/Time: 09/19/2019 211 2 Begin exam date/time: 09/19/[address] HEAD WO CONTRAST Date: 09/19/2019 9:13 PM Clinical Indication: confusion Comparison: Head CT May 08, 2005. Technique: 5 mm axial tomographic hans ges were obtained of the head without contrast. These were viewed on brain and bone windows. One or more of the following dose reduction te chniques were utilized: Automated exposure control (AEC), Adjustment of m A and/or kV according to patient size, Use of iterative reconstruction t echnique such as ASiR, CT scan done according to ALARA and image gentl y/image wisely Findings: Mild generalized cerebral and cerebella r volume loss. Mild nonspecific periventricular hypoattenuation, most c ommonly seen with chronic small vessel ischemic disease. Calcified athe rosclerosis of the bilateral cavernous and paraclinoid internal kenney tid arteries and intracranial vertebral arteries. No intra- or extra-axial mass or fluid collection. No acute hemorrhage. The ventricles are normal in size, shap e, and morphology. The craven-white matter junction is normal. The subarach noid cisterns are patent. Mild right maxillary sinus mucosal thic kening/small air-fluid level. Postsurgical changes to the orbits. The mastoid air cells are clear. The tactical air defense controller topogram shows no lytic lesio n or fracture. Procedure Note Interface, Rad Results In - 09/20/2019 10:19 AM INSULATOR HELPER Patient: BOARD, ISIAH Sex#: F #: 1950 Jose#: [id number] Location: [facility] 4 [facility] 1 4043- Procedure Requested: [id number] CT HEAD WO CONTRAST Reason for Exam: confusion Exam Ordered: 09/19/2019 1542 Exam Date/Time: 09/19/20192111 Begin exam date/time: 09/19/20192106 CT HEAD WO CONTRAST Date: 09/19/2019 9:13 PM Clinical Indication: confusion Comparison: Head CT May 08, 2005. Technique: 5 mm axial tomographic images were obtained of the head without contrast. These were viewed on brain and bone windows. One or more of the following dose reduction techniques were utilized: Automated exposure control (AEC), Adjustment of mA and/or kV according to patient size, Use of iterative reconstruction technique such as ASiR, CT scan done according to ALARA and image gently/image wisely Findings: Mild generalized cerebral and cerebellar volume loss. Mild nonspecific periventricular hypoattenuation, most commonly seen with chronic small vessel ischemic disease. Calcified atherosclerosis of the bilateral cavernous and paraclinoid internal carotid arteries and intracranial vertebral arteries. No intra- or extra-axial mass or fluid collection. No acute hemorrhage. The ventricles are normal in size, shape, and morphology. The craven-white matter junction is normal. The subarachnoid cisterns are patent. Mild right maxillary sinus mucosal thickening/small air-fluid level. Postsurgical changes to the orbits. The mastoid air cells are clear. The tactical air defense controller topogram shows no lytic lesion or fracture. IMPRESSION Impression: No acute intracranial process. Mild cerebral volume loss. Mild chronic small vessel ischemic disease. The above findings are in general agreement with those in the preliminary report provided by [employer]. READING SITE: [facility]. ATTESTATION STATEMENT: The Staff Radiologist has personally reviewed the images and dictated, reviewed, or edited the final report. Performing Organization Address City/[facility] Ph one Number LEVI * Culture, Blood (09/19/2019 4:56 PM INSULATOR HELPER) Only the most recent of 8 results within the time period is included. Culture Result No Growth at 5 days [facility] Lab Specimen Blood Narrative Performed At 3ml rfa [facility]ORATORIES Performing Organization Address City/State/[facility] Center[facility] Ph one Number [address] [place] [address] LABORATORIES [facility] [address] [place] [address] * Complete Blood Count (09/19/2019 4:53 PM INSULATOR HELPER) Only the most recent of 7 results within the time period is included. Pathologist [facility] WBC 10.54 4.00 - 11.00 TH/uL [facility] Lab RBC 4.33 4.00 - 5.00 MIL/uL [facility] Lab Hemoglobin 14.0 12.0 - 15.0 g/dL [facility] Hematocrit 43 36 - 45 % [facility] MCV 99 80 - 99 fL [facility] MCH 32 27 - 34 pg [facility] MCHC 33 32 - 36 % [facility] RDW 13.1 11.5 - 14.5 % [facility] Platelet Count 197 140 - 400 TH/uL [facility] MPV 10.5 9.4 - 12.3 fL [facility] Nucleated RBCs 0 0 - 0 /100 [facility] Specimen Blood Performing Organization Address City/State/Zipcode Ph one Number [facility] [address] [facility] , [place] [id number] [facility] [address] [facility] [place] [address] [facility] [facility] * Electrocardiogram (ECG) (09/19/2019 3:45 PM INSULATOR HELPER) Only the most recent of 4 results within the time period is included. 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: [id number] : 1950 Requested By: HOPE OCX Order Number: [id number] Reading MD: Louie Reyes Measurements Intervals [place] Rate: 84 P: 38 DE: 144 QRS: 3 QRSD: 108 T: 24 QT: 384 QTc: 454 Interpretive Statements SINUS RHYTHM PROBABLE LEFT VENTRICULAR HYPERTROPHY Electronically Signed On 09-20-2019 10:3 7:02 INSULATOR HELPER by Louie Reyes Procedure Note Interface, External Ris In - 09/20/2019 10:37 AM INSULATOR HELPER [facility] Test Date: 2019-09-19 Pat Name: ISIAH BENÍTEZ Department: SP1 Room: 4043 Gender: Female Electronic Organ Technician: [id number] : 1950 Requested By: HOPE COX Order Number: [id number] Reading MD: Louie Reyes Measurements Intervals [place] Rate: 84 P: 38 DE: 144 QRS: 3 QRSD: 108 T: 24 QT: 384 QTc: 454 Interpretive Statements SINUS RHYTHM PROBABLE LEFT VENTRICULAR HYPERTROPHY Electronically Signed On 09-20-2019 10:37:02 INSULATOR HELPER by Louie Reyes Performing Organization Address City/State/Zipcode Ph one Number TRACEMASTER * CT Abdomen Pelvis w contrast (09/17/2019 8:59 AM INSULATOR HELPER) Only the most recent of 2 results within the time period is included. Specimen Impressions Performed At 1. Interval placement of left nephro ureteral stent in appropriate [place] position with decompression of the left -sided collecting system. Left sided ureteral calculus has migrated sl ightly now at the level of the iliac crests. 2. 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 3. Hepatomegaly with hepatic steatosi s. 4. Prominence of the central intrahep atic and extra hepatic bile ducts with the common bile duct measuring up to 0.8 cm. This is most likely related to the postcholecystectomy stat e of the patient, although it is new from the prior CT. MRI/MRCP may be performed to assess for biliary obstruction, if clinically warranted. READING SITE: [facility] ATTESTATION STATEMENT: The staff radiol ogist has personally reviewed the images and dictated, reviewed, or edite d the final report. Narrative Performed At Patient: ISIAH BENÍTEZ Sex#: Paulina #: 1950 Jose #: [id number] Location: [facility] SED-11 Procedure Requested: [id number] CT ABDOM EN PELVIS W CONTRAST Reason for Exam: Abdominal pain or Vo miting/Diarrhea Exam Ordered: 09/17/2019 07 56 Exam Date/Time: 09/17/2019 085 9 Begin exam date/time: 09/17/[address] ABDOMEN PELVIS W CONTRAST INDICATION: "Abdominal pain or Vomiting /Diarrhea" EXAM: CT of the abdomen and pelvis with IV contrast including delayed images. The patient received 91 mL of Omnipaque 350 without complication. Coronal and sagittal re formatted images were performed. COMPARISON: CT abdomen/pelvis August FINDINGS: Lower chest: Bibasilar subsegmental ate lectasis. No consolidation. Calcified granuloma in the left base. N o pleural effusion. Normal cardiac size. Trace pericardial fluid. ABDOMEN: No free air, free fluid, or fluid colle ction. Liver: Hepatomegaly measuring up to 20 cm. Diffuse hepatic steatosis. No focal hepatic mass. Gallbladder and biliary: Cholecystectom y. Prominence of the central intrahepatic and extra hepatic bile areli ts with the common bile duct measuring up to 0.8 cm, new from prior. Spleen: Normal size spleen without foca l lesions. Calcified splenic granulomas. Pancreas: The pancreas enhances homogen eously without focal mass or peripancreatic inflammatory changes. No pancreatic duct dilation. Adrenal glands: Normal size adrenal gla nds. Kidneys and ureters: Interval placement of left nephro ureteral stent in appropriate position with decompression of the left-sided collecting system. Left sided ureteral calculus diggs s migrated slightly now at the level of the iliac crests (series 2, im age 57). Stable right simple renal cyst. GI tract, Mesentery: Stomach is decompr essed and poorly evaluated. Normal caliber small bowel. Normal jordan leslee colon. Normal appendix. Vascular structures: Normal caliber abd ominal aorta. Mild calcified atherosclerosis. The celiac artery, SMA , bilateral renal arteries, and HANS are patent. Portal and mesenteric venous structures are patent. Retroperitoneum, Lymph nodes: No lympha denopathy in the abdomen or pelvis. PELVIS: Genitourinary system: Well distended bl adder. 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 Hysterectomy. SKELETAL STRUCTURES AND SOFT TISSUES: S evere mid and lower lumbar facet osteoarthritis, with trace anterolisthe sis. Moderate osteoarthritis in the hips. Procedure Note Interface, Rad Results In - 09/17/2019 9:54 AM INSULATOR HELPER Patient: ISIAH BENÍTEZ Sex#: F #: 1950 Jose#: [id number] Location: [facility] ED SED-11 Procedure Requested: [id number] CT ABDOMEN PELVIS W CONTRAST Reason for Exam: Abdominal pain or Vomiting/Diarrhea Exam Ordered: 09/17/2019 0756 Exam Date/Time: 09/17/2019 0859 Begin exam date/time: 09/17/[address] ABDOMEN PELVIS W CONTRAST INDICATION: "Abdominal pain or Vomiting/Diarrhea" EXAM: CT of the abdomen and pelvis with IV contrast including delayed images. The patient received 91 mL of Omnipaque 350 without complication. Coronal and sagittal reformatted images were performed. COMPARISON: CT abdomen/pelvis August 30, 2019 FINDINGS: Lower chest: Bibasilar subsegmental atelectasis. No consolidation. Calcified granuloma in the left base. No pleural effusion. Normal cardiac size. Trace pericardial fluid. ABDOMEN: No free air, free fluid, or fluid collection. Liver: Hepatomegaly measuring up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
--- OUTSIDE RECORDS SUMMARY | 2019-11-28 22:12 | XMS REPORT | Encounter Summary ---
Author Author [facility] Organization [facility] Address Unknown Phone Unavailable Care Team Providers Care Follow Up Rep Name Role Phone Ebony Sharp MD PCP Reason for Visit * Reason Comments Other Encounter Details Care Team Description Date Type Department Ebony Sharp MD [address] [place] [address] [phone] Other 10/27/2019 Refill [facility] y [facility] (walk-in clinic) [address] [place], [place] [id number] Social History Date Tobacco Use Types Packs/Day [...] Description Date [place] [address] [place] [address] [phone] 02/29/2020 Office Visit Urology documented as of this encounter Visit Diagnoses Not on filedocumented in this encounter
--- OUTSIDE RECORDS SUMMARY | 2019-11-28 22:12 | XMS REPORT | Encounter Summary ---
Author Author [facility] Organization [facility] Address Unknown Phone Unavailable Care Team Providers Care Sr Account Executive Name Role Phone Ebony Sharp MD PCP Reason for Visit * Reason Comments Flank Pain Patient presents to the ED from home via EMS, Patient reprots left flank pain x3 days, and pain with urination. denies N/V, reports diarrhea. reports hx of kidney stones. Encounter Details Care Team Description Date Type Department Urinary tract infection with out hematuria, site unspecified (Primary Dx); Flank pain 10/18/2019 Emergency [facility] [address] [place], [place] [id number] Social History Date Tobacco Use Types Packs/Day [...] Signs Reading Time Taken Comments Vital Sign 115/83 10/18/2019 2:08 PM PARTITION ASSEMBLY MACHINE OPERATOR Blood Pressure 70 10/18/2019 2:08 PM PARTITION ASSEMBLY MACHINE OPERATOR Pulse 36.8 C (98.3 F) 10/18/2019 2:08 PM PARTITION ASSEMBLY MACHINE OPERATOR Temperature 20 10/18/2019 2:08 PM PARTITION ASSEMBLY MACHINE OPERATOR Respiratory Rate 96% 10/18/2019 2:08 PM PARTITION ASSEMBLY MACHINE OPERATOR Oxygen Saturation - - Inhaled Oxygen Concentration 95.3 kg (210 lb) 10/18/2019 2:08 PM PARTITION ASSEMBLY MACHINE OPERATOR Weight 157.5 cm (5' 2") 10/18/2019 2:08 PM PARTITION ASSEMBLY MACHINE OPERATOR Height 38.41 10/18/2019 2:08 PM PARTITION ASSEMBLY MACHINE OPERATOR Body Mass Index documented in this encounter Discharge Instructions * Instructions* Floresita Gan NP - 10/18/2019 Take the antibiotic as prescribed. Take pain medications as needed. Recommend follow-up with your primary care provider next week for follow-up. Return to the ER for any other worrisome symptoms arise. * Attachments The following attachments cannot be sent through Care Everywhere.* Urinary Tract Infections (UTIs), Understanding (Chinese) documented in this encounter Medications at Time of Discharge Start Date End Date Medication Sig Dispensed Refills 08/28/2019 08/27/2020 albuterol Inhale 2 1 Inhaler 0 (PROAIR/PROVENTIL/VENTOLI puffs every 6 N) 90 mcg/actuation HFA (six) hours inhaler as needed for wheezing. 06/26/2019 amitriptyline (ELAVIL) 25 Take 1 tablet 90 tablet 1 MG tablet (25 mg total) by mouth nightly. 06/17/2019 atorvastatin (LIPITOR) 40 Take 1 tablet 90 tablet 1 MG tablet (40 mg total) by mouth daily. 10/13/2019 BREO ELLIPTA 200-25 INHALE 1 PUFF 60 each 2 mcg/dose BY MOUTH INHALERIndications: DAILY Chronic obstructive pulmonary disease, unspecified COPD type (HCC) 09/29/2019 cephalexin (KEFLEX) 500 Take 1 15 capsule 0 MG capsule capsule (500 mg total) by mouth 3 (three) times a day. 07/14/2019 citalopram (CELEXA) 20 mg Take 1 tablet 90 tablet 1 tablet (20 mg total) by mouth daily. 09/29/2019 fluconazole (DIFLUCAN) Take 1 tablet 5 tablet 0 100 MG tablet (100 mg total) by mouth daily. 09/08/2019 hydroCHLOROthiazide Take 1 tablet 30 tablet 0 (HYDRODIURIL) 25 MG (25 mg total) tablet by mouth daily. 09/23/2019 hyoscyamine (LEVSIN/SL) Dissolve 1 30 tablet 0 0.125 mg SL tablet (0.125 tabletIndications: mg total) Ureteral calculus, left under the tongue every 4 (four) hours as needed. 09/23/2019 insulin glargine (LANTUS Inject 25 10 mL 0 U-100 INSULIN) 100 Units under unit/mL injection the skin nightly. 08/26/2017 insulin syringe (BD Inject under 100 each 0 ULTRA-FINE) 0.3 mL 31 the skin gauge x 5/16 daily. use as directed 06/21/2018 insulin syringe 0.3 mL 31 USE 100 each 1 gauge x 5/16 DIRECTED 02/14/2016 01/14/2028 ipratropium-albuterol Inhale 3 mL 4 360 mL 11 (DUO-NEB) 0.5-3 mg/3 mL (four) times nebulizer a day. 09/08/2019 lactobacillus Take 2 20 capsule 0 (CULTURELLE) 10 billion capsules by cell capsule mouth daily. 10/18/2019 nitrofurantoin, Take 100 mg 0 macrocrystal-monohydrate, by mouth 2 (MACROBID) 100 MG capsule (two) times a day. 10/01/2019 oxyCODONE-acetaminophen Take 1 tablet 30 tablet 0 (PERCOCET) 5-325 mg per by mouth tablet every 4 (four) hours as needed for pain. Max Daily Dose: 6 tablets OXYGEN THERAPY 2 L/min as 0 needed. 08/02/2019 phenazopyridine Take 1 tablet 9 tablet 0 (PYRIDIUM) 200 MG (200 mg tabletIndications: total) by dysuria mouth 3 (three) times a day as needed for pain. 09/23/2019 SITagliptin (JANUVIA) 50 Take 2 30 tablet 0 MG tabletIndications: tablets (100 type 2 diabetes mellitus mg total) by mouth daily. 08/02/2019 tolterodine (DETROL) 2 MG Take 1 tablet 30 tablet 0 tablet (2 mg total) by mouth 2 (two) times a day. 09/29/2019 traMADol (ULTRAM) 50 mg Take 1 tablet 8 tablet 0 tablet (50 mg total) by mouth every 6 (six) hours as needed for pain. Max Daily Dose: 200 mg vit A/vit Take by mouth 0 C/biotin/zinc/copper daily. (EDNH-VGYO-LSKS,VIT A,C-BIOTIN, ORAL) 10/18/2019 10/20/2019 HYDROcodone-acetaminophen Take 1-2 8 tablet 0 (NORCO) 5-325 mg per tablets by tablet mouth every 6 (six) hours as needed for pain. Max Daily Dose: 8 tablets 10/18/2019 10/25/2019 nitrofurantoin, Take 1 14 capsule 0 macrocrystal-monohydrate, capsule (100 (MACROBID) 100 MG capsule mg total) by mouth 2 (two) times a day. 06/17/2019 10/27/2019 cyclobenzaprine Take 1 tablet 90 tablet 0 (FLEXERIL) 10 MG tablet (10 mg total) by mouth 3 (three) times a day as needed for muscle spasms. 07/18/2019 10/27/2019 gabapentin (NEURONTIN) TAKE 2 540 capsule 0 300 MG capsule CAPSULES BY MOUTH THREE TIMES DAILY 07/18/2019 10/30/2019 metoprolol tartrate TAKE 1 TABLET 180 tablet 0 (LOPRESSOR) 100 MG tablet BY MOUTH TWICE DAILY documented as of this encounter ED Notes * Floresita Gan NP - 10/18/2019 7:29 PM PARTITION ASSEMBLY MACHINE OPERATOR 10/18/2019 [facility] History Chief Complaint Patient presents with Flank Pain Patient presents to the ED from home via EMS, Patient reprots left flank pain x3 days, and pain with urination. denies N/V, reports diarrhea. reports hx of ki dney stones. 69-year-old female presents to the ER with complaints of left flank pain that diggs s been present over the last 3 days. She states that it was intermittently over the last 2 days but more consistent today. Patient denies any nausea, vomiting, fever, or chills. Patient does have occasional diarrhea and some dysuria. Camron trejo has history of kidney stones and it feels similar. She tried taking a tra madol no improvement in her pain. She denies any chest pain Past Medical History: Diagnosis Date Acute bleeding 08/08/2016 Allergic rhinitis Anxiety Bronchitis, chronic (HCC) Cataract 2011, 2012 bilat cateract surgery Chronic pain disorder back, ribs, and ankle. COPD (chronic obstructive pulmonary disease) (HCC) Depression Draining postoperative wound 08/08/2016 Endometriosis Essential hypertension Fractures [address] in Left ankle MATA (generalized anxiety disorder) 09/24/2015 Hernia of abdominal cavity Kidney stone Mixed hyperlipidemia 09/24/2015 Morbid obesity due to excess calories (HCC) 07/10/2016 On home oxygen therapy 2L - usually needs if has an exerbation of COPD, or resp illness SASHA on CPAP Osteoarthritis Refusal of blood transfusions as patient is Congregational Sleep apnea CPAP use Type 2 diabetes mellitus with hyperglycemia, with long-term current use of i nsulin (HCC) 06/29/2016 Urinary calculi Urinary incontinence Urinary tract infection 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 Past Surgical History: Procedure Laterality Date ANKLE FRACTURE SURGERY Left 1998 fx in 3 places and w/screws in place APPENDECTOMY CATARACT EXTRACTION W/ INTRAOCULAR LENS IMPLANT Bilateral SECTION, CLASSIC CHOLECYSTECTOMY COLONOSCOPY CYSTOSCOPY, RETROGRADE PYELOGRAM, URETEROSCOPY, LASERLITHOTRIPSY, WITH URETE RAL STENT PLACEMENT Left 06/28/2019 Procedure: CYSTOSCOPY, LEFT RETROGRADE PYELOGRAM, LEFT URETEROSCOPY, LEFT HOLMI UM LASER LITHOTRIPSY WITH STONE EXTRACTION, AND LEFT URETERAL STENT PLACEMENT; Surgeon: Darin Huber MD; Location: [facility] Main OR; Service: Urology; Laterality: Left; CYSTOSCOPY, RETROGRADE PYELOGRAM, URETEROSCOPY, LASERLITHOTRIPSY, WITH URETE RAL STENT PLACEMENT Left 08/02/2019 Procedure: CYSTOSCOPY, LEFT RETROGRADE PYELOGRAM, LEFT URETEROSCOPY, LASER LITH OTRIPSY, LEFT URETERAL STENT EXCHANGE; Surgeon: Darin Huber MD; Location: [facility] Main OR; Service: Urology; Laterality: Left; CYSTOSCOPY, RETROGRADE PYELOGRAM, URETEROSCOPY, LASERLITHOTRIPSY, WITH URETE RAL STENT PLACEMENT Left 09/21/2019 Procedure: CYSTOSCOPY, LEFT RETROGRADE PYELOGRAM, LEFT URETEROSCOPY, LEFT HOLMI UM LASER LITHOTRIPSY WITH BASKET EXTRACTION OF STONE, AND LEFT URETERAL STENT PL ACEMENT; Surgeon: Janet Aragon MD; Location: [facility] Main OR; Service: Ur ology; Laterality: Left; CYSTOSCOPY, RETROGRADE PYELOGRAM, W/URETERAL STENT PLACEMENT Left 08/30/2019 Procedure: CYSTOSCOPY, LEFT RETROGRADE PYELOGRAM, AND LEFT URETERAL STENT INSER TION; Surgeon: Janet Aragon MD; Location: [facility] Main OR; Service: Urolo gy; Laterality: Left; HAND SURGERY Left 03/09/2019 [facility] HERNIA REPAIR HYSTERECTOMY KIDNEY STONE SURGERY OOPHORECTOMY REMOVAL, HARDWARE, FOOT OR ANKLE Left 04/09/2017 Procedure: LEFT ANKLE REMOVAL OF HARDWARE WITH REVISION LEFT ANKLE ARTHRODESIS; Surgeon: Adelaida Olivas MD; Location: [facility] Main OR; Service: Orthopedics; Later ality: Left; REMOVAL, STENT, URETER, CYSTOSCOPIC Left 09/21/2019 Procedure: CYSTOSCOPY, LEFT URETERAL STENT REMOVAL; Surgeon: Janet valdes MD; Location: [facility] Main [facility]; Service: Urology; Laterality: Left; REPAIR, INCISIONAL HERNIA, LAPAROSCOPIC, USING MESH N/A 05/25/2018 Procedure: LAPAROSCOPIC INCISIONAL HERNIA REPAIR WITH MESH; Surgeon: Medardo Tate MD; Location: [facility] Main OR; Service: General; Laterality: N/A; TONSILLECTOMY TOTAL KNEE ARTHROPLASTY Left 2010 TOTAL KNEE ARTHROPLASTY Right 2011 Family History Problem Relation Age of Onset Cancer Mother Stroke Mother Cancer Father Stroke Father Cirrhosis Father Alcohol abuse Sister Hypertension Sister Other Sister back problems COPD Brother Alzheimer's disease Sister Diabetes Sister Hypertension Sister Stroke Sister Stroke Sister Stroke Brother Heart attack Brother Stroke Brother Heart attack Brother Stroke Brother Heart attack Brother Social History Tobacco Use Smoking status: Former Smoker Packs/day: 0.33 Years: 20.00 Pack years: 6.60 Types: Cigarettes Start date: 1990 Last attempt to quit: 04/2011 Years since quittin.4 Smokeless tobacco: Never Used Tobacco comment: quit 7 years ago Substance Use Topics Alcohol use: Yes Comment: rarely Drug use: No Review of Systems Constitutional: Negative for chills and fever. Cardiovascular: Negative for chest pain, palpitations and leg swelling. Gastrointestinal: Positive for abdominal pain, diarrhea and vomiting. Negative f or constipation and nausea. Genitourinary: Positive for flank pain. All other systems reviewed and are negative. Physical Exam BP 115/83 (BP Location: Right forearm) | Pulse 70 | Temp 98.3 F (36.8 C) ( Oral) | Resp 20 | Ht 1.575 m (5' 2") | Wt 95.3 kg (210 lb) | SpO2 96% | BMI 38.41 kg/m Weight Method: Stated Physical Exam Vitals signs and nursing note reviewed. Constitutional: Appearance: Normal appearance. She is obese. HENT: Head: Normocephalic and atraumatic. Eyes: Conjunctiva/sclera: Conjunctivae normal. Neck: Musculoskeletal: Normal range of motion and neck supple. Cardiovascular: Rate and Rhythm: Normal rate and regular rhythm. Heart sounds: Normal heart sounds. Pulmonary: Effort: Pulmonary effort is normal. Breath sounds: Normal breath sounds. Abdominal: General: Bowel sounds are normal. Tenderness: There is tenderness (left lower and mid abdominal tenderness with palpation. ). There is left CVA tenderness. Skin: General: Skin is warm and dry. Neurological: Mental Status: She is alert. Psychiatric: Mood and Affect: Mood normal. Behavior: Behavior normal. ED Course Procedures MDM Number of Diagnoses or Management Options Flank pain: Urinary tract infection without hematuria, site unspecified: Diagnosis management comments: Patient presented with left flank pain and dysuri a. UA concerning for urinary tract infection although this may also be contamin ated. Due to patient symptoms will go ahead and place on antibiotic and send u rine off for culture. CT imaging performed for further evaluation of patient's pain. No renal or ureter stone present. Labs viewed with patient. She is hype rglycemic. She states that diabetes is not well controlled. Vital signs are st able. Pain is controlled. Patient is felt to be a reasonable candidate for out patient management. She is tolerating oral fluids without difficulty. Patient stable for discharge Results for orders placed or performed during the hospital encounter of 10/18/19 (from the past 24 hour(s)) CBC and Diff (manual diff if necessary) Result Value Ref Range WBC 8.72 4.00 - 11.00 TH/uL RBC 3.86 (L) 4.00 - 5.00 MIL/uL Hemoglobin 12.6 12.0 - 15.0 g/dL Hematocrit 39 36 - 45 % MCV 100 (H) 80 - 99 fL MCH 33 27 - 34 pg MCHC 33 32 - 36 % RDW 14.3 11.5 - 14.5 % Platelet Count 234 140 - 400 TH/uL MPV 9.9 9.4 - 12.3 fL Nucleated RBCs 0 0 - 0 /100 % Neutrophils 54 45 - 78 % %Lymphocytes 34 15 - 47 % %Monocytes 10 0 - 12 % %Eosinophils 2 0 - 7 % %Basophils 1 0 - 2 % % Imm Grans 1 0 - 1 % # Granulocytes 4.67 1.7 - 6.8 TH/uL # Lymphocytes 2.94 1.0 - 3.3 TH/uL # Monocytes 0.86 0.2 - 0.9 TH/uL # Eosinophils 0.16 0.0 - 0.4 TH/uL # Basophils 0.05 0.0 - 0.1 TH/uL Comprehensive Metabolic Panel Result Value Ref Range Sodium 137 133 - 147 MEQ/L Potassium 3.5 3.5 - 5.3 MEQ/L Chloride 99 96 - 112 MEQ/L Carbon Dioxide 30 20 - 32 MEQ/L Anion Gap 8 5 - 17 Calcium 8.7 8.4 - 10.5 mg/dL Glucose 343 (H) 70 - 100 mg/dL Protein Total Serum 7.7 6.0 - 8.2 g/dL Albumin 4.1 3.5 - 5.0 g/dL Alkaline Phosphatase 86 42 - 140 IU/L Alanine Aminotransferase 26 0 - 34 IU/L Aspartate Aminotransferase 35 15 - 46 IU/L Bilirubin Total 0.2 0.2 - 1.3 mg/dL Blood Urea Nitrogen 9 7 - 26 mg/dL Creatinine 0.7 0.4 - 1.1 mg/dL eGFR Female AA 100 60 - 200 mL/min/1.73sq m eGFR Female Non-AA 83 60 - 200 mL/min/1.73sq m Urinalysis Reflex Result Value Ref Range Appearance, Urine Yellow Glucose Urine >=1000 (A) Negative mg/dL Bilirubin Urine Negative Negative Ketones Urine Negative Negative mg/dL Specific [place], UA 1.021 1.001 - 1.030 Hemoglobin Urine Negative Negative PH Urine 5.0 5.0 - 8.0 Protein Urine Qual Trace (A) Negative mg/dL Urobilinogen Urine Negative Negative EU/dL Nitrite Urine Negative Negative Leukocyte Esterase Positive (A) Negative Urinalysis Microscopic Only Result Value Ref Range Microscopic RBC Urine 0-5 0 - 5 /hpf Microscopic WBC Urine >40 (A) 0 - 5 /hpf Epithelial Cells Large (A) Absent Hyaline Cast Large (A) Absent Bacteria Small (A) Absent CT Abdomen Pelvis wo contrast Final Result 1. No acute abdominal or pelvic process. No hydronephrosis or renal calculi. 2. Hepatomegaly with diffuse hepatic steatosis. 3. Coronary artery atherosclerosis. READING SITE: [facility] ATTESTATION STATEMENT: The Staff Radiologist has personally reviewed the images and dictated, reviewed, or edited the final report. Filed VS 10/18/19 1408 BP: 115/83 Pulse: 70 Resp: 20 Temp: 98.3 F (36.8 C) SpO2: 96% Medications fentaNYL (SUBLIMAZE) injection 50 mcg (50 mcg Intravenous Given 10/18/191823) ondansetron (ZOFRAN) injection 4 mg (4 mg Intravenous Given 10/18/191823) cefTRIAXone (ROCEPHIN) injection 1 g (1 g Intravenous Given 10/18/191946) HYDROcodone-acetaminophen (NORCO) 5-325 mg per tablet 1 tablet (1 tablet Oral Gi paxton 10/18/191958) I have reviewed all of the labs and radiology studies. ED Clinical Impression 1. Urinary tract infection without hematuria, site unspecified 2. Flank pain Patient ED Dispo ED Disposition Discharge Floresita Gan NP 10/18/192008 ITION ASSEMBLY MACHINE OPERATOR documented in this encounter Plan of Treatment Care Team Description Date [place] [address] [place] [address] [id number] 02/29/2020 Office Visit Urology documented as of this encounter Procedures Comments Procedure Name Priority Date/Time Associated Diag nosis CT ABDOMEN PELVIS WO STAT 10/18/2019 CONTRAST 6:44 PM PARTITION ASSEMBLY MACHINE OPERATOR URINALYSIS MICROSCOPIC STAT 10/18/2019 ONLY 6:15 PM PARTITION ASSEMBLY MACHINE OPERATOR URINALYSIS REFLEX STAT 10/18/2019 6:15 PM PARTITION ASSEMBLY MACHINE OPERATOR CULTURE, URINE STAT 10/18/2019 6:15 PM PARTITION ASSEMBLY MACHINE OPERATOR COMPREHENSIVE METABOLIC STAT 10/18/2019 PANEL 6:07 PM PARTITION ASSEMBLY MACHINE OPERATOR CBC AND DIFF (MANUAL DIFF STAT 10/18/2019 IF NECESSARY) 6:07 PM PARTITION ASSEMBLY MACHINE OPERATOR documented in this encounter Results * CT Abdomen Pelvis wo contrast (10/18/2019 6:44 PM PARTITION ASSEMBLY MACHINE OPERATOR) Specimen Impressions Performed At 1. No acute abdominal or pelvic process. No hydrone phrosis or renal MCKESSON calculi. 2. Hepatomegaly with diffuse hepatic steatosis. 3. Coronary artery atherosclerosis. READING SITE: [facility] ATTESTATION STATEMENT: The Staff Radiol ogist has personally reviewed the images and dictated, reviewed, or edite d the final report. Narrative Performed At Patient: ISIAH BENÍTEZ Sex#: F #: [id number] Jose #: [id number] Location: [facility]- Procedure Requested: [id number] CT ABDOM EN PELVIS WO CONTRAST Reason [...] perfor med. COMPARISON: CT abdomen and pelvis u 2019 FINDINGS: No free air, free fluid, [...] Rad Results In - 10/18/2019 7:12 PM PARTITION ASSEMBLY MACHINE OPERATOR Patient: ISIAH BENÍTEZ Sex#: F #: [id number] Jose#: [id number] Location: [facility] ED [facility]- Procedure Requested: [id number] CT ABDOMEN PELVIS WO CONTRAST Reason for Exam: left flank pain Exam Ordered: 10/18/20191830 Exam Date/Time: 10/18/2019 1844 Begin exam date/time: 10/18/[address] ABDOMEN PELVIS WO CONTRAST INDICATION: Left [...] eatosis. 3. Coronary artery atherosclerosis. READING SITE: [facility] ATTESTATION STATEMENT: The Staff Radiologist has personally reviewed the images and dictated, reviewed, or edited the final report. Performing Organization Address City/State/Zipcode Ph one Number [place] * Culture, Urine (10/18/2019 6:15 PM PARTITION ASSEMBLY MACHINE OPERATOR) Culture Result Three or more bacterial [facility] species isolated from urine Hospital Lab indicates colonization or fecal contamination. Submission of a repeat specimen is suggested. Specimen Clean Voided Urine Performing Organization Address City/State/[facility] Ph one Number [facility] [address] [place] [address] LABORATORIES [facility] [address] [place] [address] * Urinalysis Microscopic Only (10/18/2019 6:15 PM PARTITION ASSEMBLY MACHINE OPERATOR) Microscopic RBC 0-5 0 - 5 /hpf [facility] Microscopic WBC >40 (A) 0 - 5 /hpf [facility] Epithelial Large (A) Absent [facility] Cells [facility] Hyaline Cast Large (A) Absent [facility] Bacteria Small (A) Absent [facility] Specimen Clean Voided Urine Performing Organization Address City/[facility]/Zipcode Ph one Number [facility] [address] [place] [address] [facility] [facility] [address] [facility] [facility] [place] [address] [facility] * Urinalysis Reflex (10/18/2019 6:15 PM PARTITION ASSEMBLY MACHINE OPERATOR) Appearance, Yellow [facility] Glucose Urine >=1000 (A) Negative mg/dL [facility] Bilirubin Urine Negative Negative [facility] Ketones Urine Negative Negative mg/dL [facility] Specific 1.021 1.001 - 1.030 [facility] [place], UA [facility] Hemoglobin Negative Negative [facility] U[facility] PH Urine 5.0 5.0 - 8.0 [facility] Protein Urine Trace (A) Negative mg/dL [facility] Qual [facility] Urobilinogen Negative Negative EU/dL [facility] Urine [facility] Nitrite Urine NegativeComment: Culture Negative [facility] Ordered [facility] Leukocyte Positive (A) Negative [facility] Esterase [facility] Specimen Clean Voided Urine Performing Organization Address City/State/[facility] Cent[facility]ode Ph one Number [facility] [address] [place] [address] [facility] [facility] [address] [facility] [place] [address] [facility] * Comprehensive Metabolic Panel (10/18/2019 6:07 PM PARTITION ASSEMBLY MACHINE OPERATOR) Sodium 137 133 - 147 MEQ/L [facility] Potassium 3.5 3.5 - 5.3 MEQ/L [facility] Chloride 99 96 - 112 MEQ/L [facility] Carbon Dioxide 30 20 - 32 MEQ/L [facility] Anion Gap 8 5 - 17 [facility] Calcium 8.7 8.4 - 10.5 mg/dL [facility] Glucose 343 (H) 70 - 100 mg/dL [facility] Protein Total 7.7 6.0 - 8.2 g/dL [facility] Serum [facility] Albumin 4.1 3.5 - 5.0 g/dL [facility] Alkaline 86 42 - 140 IU/L [facility] Phosphatase [facility] Alanine 26 0 - 34 IU/L [facility] Aminotransferas [facility] e [facility] Aspartate 35 15 - 46 IU/L [facility] Aminotransferas [facility] e [facility] Bilirubin Total 0.2 0.2 - 1.3 mg/dL [facility] Blood Urea 9 7 - 26 mg/dL [facility] Nitrogen [facility] Creatinine 0.7 0.4 - 1.1 mg/dL [facility] eGFR Female AA 100 60 - 200 [facility] mL/min/1.73sq m [facility] eGFR Female 83 60 - 200 [facility] Non-AA mL/min/1.73sq m [facility] Specimen Blood Performing Organization Address City/State/Zipcode Ph one Number [facility] [address] [place] [address] [facility] [address] [place] [address] [facility] * CBC and Diff (manual diff if necessary) (10/18/2019 6:07 PM PARTITION ASSEMBLY MACHINE OPERATOR) WBC 8.72 4.00 - 11.00 TH/uL [facility] RBC 3.86 (L) 4.00 - 5.00 MIL/uL [facility] Hemoglobin 12.6 12.0 - 15.0 g/dL [facility] Hematocrit 39 36 - 45 % [facility] [facility] MCV 100 (H) 80 - 99 fL [facility] MCH 33 27 - 34 pg [facility] [facility] MCHC 33 32 - 36 % [facility] [facility] RDW 14.3 11.5 - 14.5 % [facility] Platelet Count 234 140 - 400 TH/uL [facility] MPV 9.9 9.4 - 12.3 fL [facility] [facility]az[facility] Nucleated RBCs 0 0 - 0 /100 [facility] % Neutrophils 54 45 - 78 % [facility] %Lymphocytes 34 15 - 47 % [facility] %Monocytes 10 0 - 12 % [facility] [facility] %Eosinophils 2 0 - 7 % [facility] %Basophils 1 0 - 2 % [place] % Imm Grans 1 0 - 1 % [facility] # Granulocytes 4.67 1.7 - 6.8 TH/uL [facility] # Lymphocytes 2.94 1.0 - 3.3 TH/uL [facility] # Monocytes 0.86 0.2 - 0.9 TH/uL [facility] # Eosinophils 0.16 0.0 - 0.4 TH[facility] # Basophils 0.05 0.0 - 0.1 TH/uL [facility] Lab Specimen Blood Performing Organization Address City/State/[facility] Ph one Number [facility] [address] [place] [facility] [place] [address] [facility] [facility] [address] [facility] [place] [address] [facility] documented in this encounter Visit Diagnoses Diagnosis Urinary tract infection without hematur ia, site unspecified Flank pain Abdominal pain, unspecified site documented in this encounter Administered Medications Action Date Dose Rate Site Medication Order MAR Action 10/18/2019 7:47 PM PARTITION ASSEMBLY MACHINE OPERATOR 1 g cefTRIAXone (ROCEPHIN) injection 1 g Given 1 g, Intravenous, Once, Indications: UTI, Wed10/18/19 at 1928, For 1 dose, If giving IV push, reconstitute each vial with 10 ml sterile water and give over 3-5 minutes. If sterile water is unavailable, may use Bacteriostatic Water or Normal Saline for reconstitution, 10/18/2019 6:24 PM PARTITION ASSEMBLY MACHINE OPERATOR 50 mcg fentaNYL (SUBLIMAZE) injection 50 mcg Given 50 mcg, Intravenous, Once, Wed10/18/19 at 1813, For 1 dose, Administer over 2 minutes; max dose for IVP is 2 mcg/kg. Note: Limit does not apply to patients who may be tolerant to opioid therapy o r on continuous IV or PO opiate therapy., 10/18/2019 7:59 PM PARTITION ASSEMBLY MACHINE OPERATOR 1 tablet HYDROcodone-acetaminophen (NORCO) 5-325 Given mg per tablet 1 tablet 1 tablet, Oral, Once, Wed10/18/19 at 1953, For 1 dose, Do not exceed 4 GM/DA Y of acetaminophen. If 65 or older do no t exceed 3 GM/DAY. If chronic alcoholic d o not exceed 2 GM/DAY., 10/18/2019 6:24 PM PARTITION ASSEMBLY MACHINE OPERATOR 4 mg ondansetron (ZOFRAN) injection 4 mg Given 4 mg, Intravenous, Once, Wed10/18/19 at 1813, For 1 dose documented in this encounter
--- OUTSIDE RECORDS SUMMARY | 2019-11-28 22:12 | XMS REPORT | Encounter Summary ---
Author Author [facility] Organization [facility] Address Unknown Phone Unavailable Care Team Providers Care Ladle Liner Helper Name Role Phone Ebony Sharp MD PCP Reason for Visit * HH Auth Cert Referred By Contact Referred To Contact Status Reason Specialty Diagnoses / Procedures Encounter Details Care Team Description Date Type Department Vanessa Burch, PT PT HOME VISIT 10/19/2019 Home Care Visit [facility] [address] [address] Social History Date Tobacco Use [...] Signs Reading Time Taken Comments Vital Sign 116/68 10/19/2019 12:03 PM HEMP FIBER TAKER OFF Blood Pressure 76 10/19/2019 12:03 PM HEMP FIBER TAKER OFF Pulse 36.6 C (97.8 F) 10/19/2019 12:03 PM HEMP FIBER TAKER OFF Temperature 16 10/19/2019 12:03 PM HEMP FIBER TAKER OFF Respiratory Rate 92% 10/19/2019 12:03 PM HEMP FIBER TAKER OFF Oxygen Saturation - - Inhaled Oxygen Concentration - - Weight - - Height - - Body Mass Index documented in this encounter Plan of Treatment Care Team Description Date [place] [address] [place] [address] [phone] 02/29/2020 Office Visit Urology documented as of this encounter Visit Diagnoses Not on filedocumented in this encounter Home Health Visit - Care Plan Visit Type - PT Home Visit Discipline - Physical Therapy Status Goals Interventions Problem Descriptio Start Date n Active 1 goal linked to scheduled/documented intervention 4 goal interventions scheduled/documented in this visit PT COPD: Decreased 10/05/2019 Aerobic Tolerance Disciplines: Physical Therapy Active 1 goal linked to scheduled/documented intervention 1 goal intervention scheduled/documented in this visit PT: Decreased Gait Skills 10/05/2019 Disciplines: Physical Therapy Active 1 goal linked to scheduled/documented intervention 1 goal intervention scheduled/documented in this visit PT: Decreased Knowledge 10/05/2019 of Home Exercise Program Disciplines: Physical Therapy Active 1 goal linked to scheduled/documented intervention 1 goal intervention scheduled/documented in this visit PT: Lower Extremity/Trunk 10/05/2019 Impairment Disciplines: Physical Therapy Active 1 goal linked to scheduled/documented intervention 1 goal intervention scheduled/documented in this visit Shared: Diabetes: 09/09/2019 Knowledge Deficit Related to Diabetic Foot Care Disciplines: Intermediate, Physical Therapy, Occupational Therapy, SHARED Active 1 goal linked to scheduled/documented intervention 1 goal intervention scheduled/documented in this visit Shared: Medication Management 09/09/2019 Management and Disciplines: Education Intermediate, Physical of All Therapy, Occupational Home Therapy, SHARED Medication s Including Prescripti on and OTC. Active 1 goal linked to scheduled/documented intervention 1 goal intervention scheduled/documented in this visit Shared: Pain Management 09/09/2019 Disciplines: Intermediate, Physical Therapy, Occupational Therapy, SHARED Active 1 goal linked to scheduled/documented intervention 1 goal intervention scheduled/documented in this visit Shared: Patient Strength, 09/09/2019 Goals and Care Preferences Disciplines: Intermediate, Physical Therapy, Occupational Therapy, SHARED Goal Met? Visit Notes Goal Associated Outcome Problem No PT COPD: Patient will PT COPD: have improved aerobic Decreased tolerance in order to Aerobic maximize functional Tolerance activity Description: Patient will tolerate 10 minutes of dynamic standing activity in order to simulate improved aerobic capacity for walking room to room, walking to mailbox and community ambulation within 3 weeks. No PT: Patient will improve PT: ambulation Decreased Description: Gait to allow 150 feet using Skills no assistive device or single point cane with modified independence assist in order to safely access all living areas in home and safely access community in 4 weeks No PT: Patient to be PT: independent in home Decreased exercise program Knowledge Description: of Home of seated and standing Exercise exercises in 4 weeks Program No PT: Patient to increase PT: Lower lower extremity/trunk Extremity/ strength Trunk Description: Impairment [...] Notes Intervention Associated Status Problem/Go al Patient completed 5 min x 2 sets on seated exercises and then standing activity in the kitchen including reaching an walking tasks. PT: Activity Tolerance Problem: Completed Training PT COPD: Description: Decreased PT to perform activity Aerobic tolerance training Tolerance possibly including gait, Goal: PT aerobic test/exercise, COPD: and progressive activity Patient training. will have improved aerobic tolerance in order to maximize functional activity Patient instructed on how to balance activity/rest. Patient response to teaching: teach back provided, but additional instruction needed. PT: Instruct Energy Problem: Completed Conservation PT COPD: Decreased Aerobic Tolerance Goal: PT COPD: Patient will have improved aerobic tolerance in order to maximize functional activity Patient instructed on Using Oxygen Safely (Krames) and O2 tubing management. Patient response to instruction: teach back provided. PT: Instruct on Oxygen Problem: Completed Use PT COPD: Decreased Aerobic Tolerance Goal: PT COPD: Patient will have improved aerobic tolerance in order to maximize functional activity Breathing exercises: Patient instructed and returned demonstration of pursed lip breathing and practice in sitting, standing/walking and supine for good habit training, when need for a recover breathing. Patient required occasional verbal cues for technique. PT: Shortness of Breath Problem: Completed Management PT COPD: Decreased Aerobic Tolerance Goal: PT COPD: Patient will have improved aerobic tolerance in order to maximize functional activity Patient instructed in and performed ambulation 120 feet on level with multiple turns using no assistive device with supervision and verbal cues for proper posture and pacing for improved breathing while walking. PT: Gait Training Problem: Completed PT: Decreased Gait Skills Goal: PT: Patient will improve ambulation Patient was instructed in and returned demonstration of seated and standing home exercise program with min verbal cues for completing 2x/day. PT: Establish or Upgrade Problem: Completed Home Exercise Program PT: Decreased Knowledge of Home Exercise Program Goal: PT: Patient to be independen t in home exercise program Patient was instructed and returned demonstration in: Seated: ankle pumps, marching, hip add, hip abd, LAQ x 20 reps and full sit to stand x 5 reps Standing: heel raises, marching and partial squats x 10 reps . Patient required occasional verbal cues for increasing reps as able. Performance improved by increased number of reps this date. PT: Lower Extremity/Trunk Problem: Completed Strengthening Exercise PT: Lower Extremity/ Trunk Impairment Goal: PT: Patient to increase lower extremity/ trunk strength Patient instructed in diabetic foot care of: Diabetes: Inspecting Feet (Romulo). Patient response to teaching: teach back provided, but additional instruction needed. Shared: Instruct Diabetic Problem: Completed Foot Care [...] modifications. Patient response to teaching: teach back provided, but additional instruction needed. Shared: Asess/Instruct on Problem: Completed Pain Shared: Monitoring/Management Pain Description: Management Assess/Instruct in Goal: interventions to monitor Shared: and mitigate pain: Patient medication will management/monitoring, achieve Joint protection/work adequate simplification pain techniques, Proper control adaptive equipment, Modification/adaptation of home/activity and Proper body mechanics Patient demonstrates progress towards the stated goals by working on strengthening and walking without getting short of breath. Shared: Patient Goals Problem: Completed Description: Shared: Patient stated goals: Patient increase strength, Strength, managing symptoms at Goals and home, be treated at home, Care walk without getting Preference short of breath, go to s yazdanism, visit family, Goal: cook own meals and bathe Shared: and dress without Patient/Ca assistance. regiver will progress towards goals and achieve them documented in this encounter
--- OUTSIDE RECORDS SUMMARY | 2019-11-28 22:12 | XMS REPORT | Encounter Summary ---
Author Author [facility] Organization [facility] Address Unknown Phone Unavailable Care Team Providers Care Disaster Recovery Specialist Name Role Phone Ebony Sharp MD PCP Reason for Visit * HH Auth Cert Referred By Contact Referred To Contact Status Reason Specialty Diagnoses / Procedures Encounter Details Care Team Description Date Type Department Aury Louis RN SN OASIS DISCHARGE 10/26/2019 Home Care Visit [facility] Home Care and [facility] [address] [facility] [address] [place] [address] Social History Date Tobacco Use Types [...] Comments Vital Sign 165/100 10/26/2019 2:27 PM PROCESS STRIPPER Blood Pressure 78 10/26/2019 2:27 PM PROCESS STRIPPER Pulse 35.9 C (96.6 F) 10/26/2019 2:27 PM PROCESS STRIPPER Temperature 14 10/26/2019 2:27 PM PROCESS STRIPPER Respiratory Rate 95% 10/26/2019 2:27 PM PROCESS STRIPPER Oxygen Saturation - - Inhaled Oxygen Concentration - - Weight - - Height - - Body Mass Index documented in this encounter Progress Notes * Aury Louis RN - 10/26/2019 12:00 PM PROCESS STRIPPER Patient discharged from [facility] today in good condition. She will be moving to [place] in a few days to live with her sister who has macular de generation. ESS STRIPPER documented in this encounter Plan of Treatment Care Team Description [place] [address] [place] [address] [phone] 02/29/2020 Office Visit Urology documented as of this encounter Visit Diagnoses Not on filedocumented in this encounter Home Health Visit - Care Plan Visit Type - SN OASIS Discharge Discipline - Longterm Status Goals Interventions Problem Descriptio Start Date n Resolved on 10/26/2019 1 goal linked to scheduled/documented intervention 1 goal intervention scheduled/documented in this visit SN DM: Coping Alteration 09/09/2019 from Lifestyle Changes Disciplines: Longterm Resolved on 10/26/2019 1 goal linked to scheduled/documented intervention 1 goal intervention scheduled/documented in this visit SN DM: Knowledge Deficit 09/09/2019 Related to Diabetes Disciplines: Longterm Resolved on 10/26/2019 1 goal linked to scheduled/documented intervention 1 goal intervention scheduled/documented in this visit SN : Knowledge Deficit 09/09/2019 Related to UTI Disciplines: Longterm Resolved on 10/26/2019 1 goal linked to scheduled/documented intervention 1 goal intervention scheduled/documented in this visit Shared: Advance 09/09/2019 Directives Disciplines: Longterm, SHARED Resolved on 10/26/2019 1 goal linked to scheduled/documented intervention 1 goal intervention scheduled/documented in this visit Shared: Diabetes: 09/09/2019 Knowledge Deficit Related to Diabetic Foot Care Disciplines: Longterm, Physical Therapy, Occupational Therapy, SHARED Resolved on 10/26/2019 1 goal linked to scheduled/documented intervention 1 goal intervention scheduled/documented in this visit Shared: Medication Management 09/09/2019 Management and Disciplines: Education Longterm, Physical of All Therapy, Occupational Home Therapy, SHARED Medication s Including Prescripti on and OTC. Resolved on 10/26/2019 1 goal linked to scheduled/documented intervention 1 goal intervention scheduled/documented in this visit Shared: Pain Management 09/09/2019 Disciplines: Longterm, Physical Therapy, Occupational Therapy, SHARED Resolved on 10/26/2019 1 goal linked to scheduled/documented intervention 1 goal intervention scheduled/documented in this visit Shared: Patient Strength, 09/09/2019 Goals and Care Preferences Disciplines: Longterm, Physical Therapy, Occupational Therapy, SHARED Goal Met? Visit Notes Goal Associated Outcome Problem No SN DM: Patient/Caregiver SN DM: will demonstrate ability Coping to manage diabetes Alteration effects and recommended from lifestyle changes Lifestyle Changes No SN DM: Patient/Caregiver [...] Intervention Associated Status Problem/Go al Patient instructed in how stress impacts health and in methods to reduce stress and increase coping: How stress impacts health. Patient response to teaching: teach back provided, but additional instruction needed. SN DM: Instruct Lifestyle Problem: Completed Changes with Diabetes SN DM: Coping Alteration from Lifestyle Changes Goal: SN DM: Patient/Ca regiver will demonstrat e ability to manage diabetes effects and recommende d lifestyle changes Patient instructed on complications of diabetes mellitus: Chocolate Finisher Complications of Diabetes (Krames). Patient response to teaching: teach back provided, but additional instruction needed. SN DM: Instruct Problem: Completed Patient/Caregiver on SN DM: Complications of Diabetes Knowledge Deficit Related to Diabetes Goal: SN DM: Patient/Ca regiver will provide teach back of complicati ons of DM Patient instructed in: Strategies to prevent urinary tract infection: drink plenty of fluids, complete bladder emptying, good hygiene and When to notify home care agency [...] to give to agency. Advance Directives status: patient unable to obtain a copy. Shared: Advance Problem: Completed Directives Shared: Requested/Obtained Advance Description: Directives Patient has Health Care Goal: Directive yes Shared: Durable Power of Technical Analyst Advance (DPOA), Health Care Power directives of Technical Analyst (HCPOA) and obtained, Living Will or if [...] able to teach back diabetic foot care Reviewed/instructed on insulin. Shared: Medication Problem: Completed Regimen Review Including [...] instructed in pain management techniques, including: medication management and activity modifications. Patient response to teaching: [...] demonstrates progress towards the stated goals by demonstrating ability to manage illness in the home. Shared: Patient Goals Problem: Completed Description: Shared: [...]
--- OUTSIDE RECORDS SUMMARY | 2019-11-28 22:12 | XMS REPORT | Encounter Summary ---
Author Author [facility] Organization [facility] Address Unknown Phone Unavailable Care Team Providers Care Working Manager Name Role Phone Ebony Sharp MD PCP Reason for Visit * Reason Comments Other Encounter Details Care Team Description Date Type Department Ebony Sharp MD [address] [facility] [address] [place] [address] [phone] Other 10/29/2019 Refill [facility] (walk-in clinic) [address] [facility] [address] [place], [place] [id number] Social History Date Tobacco Use Types Packs/Day [...] Description Date [place] [address] [place] [address] [phone] 02/29/2020 Office Visit Urology documented as of this encounter Visit Diagnoses Not on filedocumented in this encounter
--- OUTSIDE RECORDS SUMMARY | 2019-11-28 22:13 | XMS REPORT | Encounter Summary ---
Author Author [facility] Organization [facility] Address Unknown Phone Unavailable Care Team Providers Care Hide Selector Name Role Phone Ebony Sharp MD PCP Reason for Visit * HH Auth Cert Referred By Contact Referred To Contact Status Reason Specialty Diagnoses / Procedures Encounter Details Care Team Description Date Type Department Shannon Rangel STRETCH PRESS OPERATOR SN MISSED VISIT DOCUMENTATION 10/05/2019 Home Care Visit [facility] [address] [facility] [address] [facility] [address] [place] [phone] Social History Date Tobacco Use Types Packs/Day [...] Description Date [place] [address] [place] [address] [phone] 02/29/2020 Office Visit Urology documented as of this encounter Visit Diagnoses Not on filedocumented in this encounter Home Health Visit - Care Plan Visit Type - SN Missed Visit Documenta tion Discipline - Longterm Status Goals Interventions Problem Descriptio Start Date n Active 1 goal linked to scheduled/documented intervention 1 goal intervention scheduled/documented in this visit SN DM: Knowledge Deficit 09/09/2019 Related to Diabetes Disciplines: Longterm Active 1 goal linked to scheduled/documented intervention 1 goal intervention scheduled/documented in this visit SN : Knowledge Deficit 09/09/2019 Related to UTI Disciplines: Longterm Active 1 goal linked to scheduled/documented intervention 1 goal intervention scheduled/documented in this visit Shared: Advance 09/09/2019 Directives Disciplines: Longterm, SHARED Active 1 goal linked to scheduled/documented intervention 1 goal intervention scheduled/documented in this visit Shared: Diabetes: 09/09/2019 Knowledge Deficit Related to Diabetic Foot Care Disciplines: Longterm, Physical Therapy, Occupational Therapy, SHARED Active 1 [...] Disciplines: Longterm, Physical Therapy, Occupational Therapy, SHARED Active 1 [...] Visit Notes Intervention Associated Status Problem/Go al SN DM: Instruct Problem: Scheduled Patient/Caregiver on SN DM: Complications of Diabetes Knowledge Deficit Related to Diabetes Goal: SN DM: Patient/Ca regiver will provide teach back of complicati ons of DM SN : Assess and Problem: Scheduled Instruct in SN : Signs/Symptoms of UTI Knowledge Deficit Related to UTI Goal: SN : Patient/Ca regiver will verbalize methods of UTI prevention and S/S of UTI by the end of the episode of care Shared: Advance Problem: Scheduled Directives Shared: Requested/Obtained Advance Description: Directives Patient has Health Care Goal: Directive yes Shared: Durable Power of Clasp Machine Operator Advance (DPOA), Health Care Power directives of Clasp Machine Operator (HCPOA) and obtained, Living Will or if not, Copy Obtained: yes requested Location of original 3 times by document: on file agency Shared: Instruct Diabetic Problem: Scheduled Foot Care Shared: Description: Diabetes: Assess/Instruct in Knowledge diabetic foot care, Deficit including monitoring for Related to skin lesions, education Diabetic on proper foot care. Foot Care Goal: Shared: Patient will be able to teach back diabetic foot care Shared: Medication Problem: Scheduled Regimen Review Including Shared: Name, Dose, Frequency, Medication and Route Management Description: Goal: Assess/review medications Shared: for adherence, new Patient/Ca orders, errors, regiver questions/concerns, will presence in the home. verbalize understand ing of medication regimen and demonstrat e ability to safely manage meds by the end of the episode of care Shared: Asess/Instruct on Problem: Scheduled Pain Shared: Monitoring/Management Pain Description: Management Assess/Instruct in Goal: interventions to monitor Shared: and mitigate pain: Patient medication will management/monitoring, achieve Joint protection/work adequate simplification pain techniques, Proper control adaptive equipment, Modification/adaptation of home/activity and Proper body mechanics Shared: Patient Goals Problem: Scheduled Description: Shared: Patient stated goals: Patient increase strength, Strength, managing symptoms at Goals and home, be treated at home, Care walk without getting Preference short of breath, go to s sikhism, visit family, Goal: cook own meals and bathe Shared: and dress without Patient/Ca assistance. regiver will progress towards goals and achieve them documented in this encounter
--- OUTSIDE RECORDS SUMMARY | 2019-11-28 22:13 | XMS REPORT | Encounter Summary ---
Author Author [facility] Organization [facility] Address Unknown Phone Unavailable Care Team Providers Care Aviation Maintenance Instructor Name Role Phone Ebony Sharp MD PCP Reason for Visit * HH Auth Cert Referred By Contact Referred To Contact Status Reason Specialty Diagnoses / Procedures Encounter Details Care Team Description Date Type Department Vanessa Burch, PT PT HOME VISIT 10/10/2019 Home Care Visit [facility] [address] [address] Social History Date Tobacco Use [...] Signs Reading Time Taken Comments Vital Sign 124/68 10/10/2019 1:30 PM DATA CENTER TECHNICIAN Blood Pressure 74 10/10/2019 1:30 PM DATA CENTER TECHNICIAN Pulse 36.4 C (97.5 F) 10/10/2019 1:30 PM DATA CENTER TECHNICIAN Temperature 18 10/10/2019 1:30 PM DATA CENTER TECHNICIAN Respiratory Rate 97% 10/10/2019 1:30 PM DATA CENTER TECHNICIAN Oxygen Saturation - - Inhaled Oxygen Concentration - - Weight - - Height - - Body Mass Index documented in this encounter Plan of Treatment Care Team Description Date [place] [address] [place] [address] [phone] 02/29/2020 Office Visit Urology documented as of this encounter Visit Diagnoses Not on filedocumented in this encounter Home Health Visit - Care Plan Visit Type - PT Home Visit Discipline - Physical Therapy Status Goals Interventions Problem Descriptio Start Date n Active 1 goal linked to scheduled/documented intervention 2 goal interventions scheduled/documented in this visit PT [...] Deficit Related to Diabetic Foot Care Disciplines: Senior Living, Physical Therapy, Occupational Therapy, SHARED Active 1 goal linked to scheduled/documented intervention 1 goal intervention scheduled/documented in this visit Shared: Medication Management 09/09/2019 Management and Disciplines: Education Senior Living, Physical of All Therapy, Occupational Home Therapy, SHARED Medication s Including Prescripti on and OTC. Active 1 goal linked to scheduled/documented intervention 1 goal intervention scheduled/documented in this visit Shared: Pain Management 09/09/2019 Disciplines: Senior Living, Physical Therapy, Occupational Therapy, SHARED Active 1 goal linked to scheduled/documented intervention 1 goal intervention scheduled/documented in this visit Shared: Patient Strength, 09/09/2019 Goals and Care Preferences Disciplines: Senior Living, Physical Therapy, Occupational Therapy, SHARED Goal Met? [...] Associated Status Problem/Go al Patient instructed on Using Oxygen Safely (Krames) and O2 tubing management. Patient response to instruction: teach back provided, but additional instruction needed. PT: Instruct on Oxygen Problem: Completed Use PT COPD: Decreased Aerobic Tolerance Goal: PT COPD: Patient will have improved aerobic tolerance in order to maximize functional activity Breathing exercises: Patient instructed and returned demonstration of pursed lip breathing. Patient required min verbal cues for technique and to use as recovery breathing. PT: Shortness of Breath Problem: Completed Management PT COPD: Decreased Aerobic Tolerance Goal: PT COPD: Patient will have improved aerobic tolerance in order to maximize functional activity Patient instructed in and performed ambulation 30' x 2 feet on level with multiple turns using front wheel walker with supervision and verbal cues for heel strike, proper posture and weight shifting. PT: Gait Training Problem: Completed PT: Decreased Gait Skills Goal: PT: Patient will improve ambulation Patient was instructed in and returned demonstration of seated home exercise program with min verbal cues for completing 1-2x/day. PT: Establish or Upgrade Problem: Completed Home Exercise Program PT: Decreased Knowledge of Home Exercise Program Goal: PT: Patient to be independen t in home exercise program Patient was instructed and returned demonstration in: Seated: ankle pumps, marching, hip add, hip abd and LAQ x 10 reps. Patient required min verbal cues for completing through full available ROM. Performance improved by increased number of reps [...] towards the stated goals by working on strengthening. Shared: Patient Goals Problem: Completed Description: Shared: Patient stated goals: Patient increase strength, Strength, managing symptoms at Goals and home, be treated at home, Care walk without getting Preference short of breath, go [facility], visit family, Goal: cook own meals and bathe Shared: and dress without Patient/Ca assistance. regiver will progress towards goals and achieve them documented in this encounter
--- OUTSIDE RECORDS SUMMARY | 2019-11-28 22:13 | XMS REPORT | Encounter Summary ---
Author Author [facility] Organization [facility] Address Unknown Phone Unavailable Care Team Providers Care Head Of Academic Technology Name Role Phone Ebony Sharp MD PCP Reason for Visit * HH Auth Cert Referred By Contact Referred To Contact Status Reason Specialty Diagnoses / Procedures Encounter Details Care Team Description Date Type Department Gaby Wolff OT OT HOME VISIT 10/16/2019 Home Care Visit [facility] [address] [address] Social History Date Tobacco Use [...] Signs Reading Time Taken Comments Vital Sign 110/90 10/16/2019 2:04 PM ELEVATOR SERVICE MECHANIC Blood Pressure 76 10/16/2019 2:04 PM ELEVATOR SERVICE MECHANIC Pulse 36.1 C (97 F) 10/16/2019 2:04 PM ELEVATOR SERVICE MECHANIC Temperature 18 10/16/2019 2:04 PM ELEVATOR SERVICE MECHANIC Respiratory Rate 95% 10/16/2019 2:04 PM ELEVATOR SERVICE MECHANIC Oxygen Saturation - - Inhaled Oxygen Concentration - - Weight - - Height - - Body Mass Index documented in this encounter Plan of Treatment Care Team Description Date [place] [address] [place] [address] [phone] 02/29/2020 Office Visit Urology documented as of this encounter Visit Diagnoses Not on filedocumented in this encounter Home Health Visit - Care Plan Visit Type - OT Home Visit Discipline - Occupational Therapy Status Goals Interventions Problem Descriptio Start Date n Active 1 goal linked to scheduled/documented intervention 1 goal intervention scheduled/documented in this visit OT COPD: Decreased 10/04/2019 Knowledge of Disease Management Disciplines: Occupational Therapy Active 1 goal linked to scheduled/documented intervention 1 goal intervention scheduled/documented in this visit OT COPD: Shortness of 10/04/2019 Breath Disciplines: Occupational Therapy Active 1 goal linked to scheduled/documented intervention 1 goal intervention scheduled/documented in this visit Shared: Diabetes: 09/09/2019 Knowledge Deficit Related to Diabetic Foot Care Disciplines: Halfway, Physical Therapy, Occupational Therapy, SHARED Active 1 goal linked to scheduled/documented intervention 1 goal intervention scheduled/documented in this visit Shared: Medication Management 09/09/2019 Management and Disciplines: Education Halfway, Physical of All Therapy, Occupational Home Therapy, SHARED Medication s Including Prescripti on and OTC. Active 1 goal linked to scheduled/documented intervention 1 goal intervention scheduled/documented in this visit Shared: Pain Management 09/09/2019 Disciplines: Halfway, Physical Therapy, Occupational Therapy, SHARED Active 1 goal linked to scheduled/documented intervention 1 goal intervention scheduled/documented in this visit Shared: Patient Strength, 09/09/2019 Goals and Care Preferences Disciplines: Halfway, Physical Therapy, Occupational Therapy, SHARED Active 1 goal linked to scheduled/documented intervention 1 goal intervention scheduled/documented in this visit Shared: Prevention of 09/09/2019 Skin Breakdown - Pressure Ulcer Disciplines: Halfway, Physical Therapy, Occupational Therapy, SHARED Active 1 goal linked to scheduled/documented intervention 1 goal intervention scheduled/documented in this visit Shared: Risk of Falls 09/09/2019 Disciplines: Halfway, Physical Therapy, Occupational Therapy, SHARED Goal Met? 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 and decreased hospitalizations by end of the episode of care No OT COPD: Patient OT COPD: demonstrates improved Shortness management of shortness of Breath of breath Description: with use of ACSM Dyspnea Scale by the end of the episode of care No Shared: Patient will be Shared: able [...] them Strength, Goals and Care Preference s No Shared: Patient will not Shared: develop any new pressure Prevention ulcers and will teach of Skin back measures to prevent Breakdown skin breakdown during - Pressure this homecare episode Ulcer No Shared: Patient will be Shared: safe in the home Risk of environment and will be Falls able to teach back measures to reduce risk of falls/injury, with assistance from caregiver and/or device as needed Variance Visit Notes Intervention Associated Status Problem/Go al Patient educated on all items on the Education Handout and is able to verbalize understanding with 75% accuracy. Needed cues for good ventalation when DTR is cleaning with multiple products Patient instructed in complications of COPD using Chronic Lung Disease - Avoiding Irritants and Allergens (Romulo) and Chronic Lung Disease - Maximizing Your Energy (Romulo) and is able to verbalize understanding with 75% accuracy OT COPD: Assess Disease Problem: Completed Management Knowledge OT COPD: Description: Decreased Occupational Therapist Knowledge will assess for patient of Disease s/caregiver Management s understanding of Goal: OT prognosis, management and COPD: avoiding of Patient/ca exacerbations. regiver will be independen t with COPD management and appropriat e use of resources for group home management of disease and decreased hospitaliz ations by end of the episode of care Patient was instructed and returned demonstration with 75% accuracy. Needed cues for keeping out and visible for pt to check regularly each day. OT COPD: Educate on COPD Problem: Completed Action Plan OT COPD: Description: Shortness Occupational Therapist of Breath will educate on the COPD Goal: OT Action Plan to assist COPD: patient/caregiver with Patient crisis situation demonstrat management. es improved management of shortness of breath Patient instructed in diabetic foot care of: Diabetes: Keeping Feet Healthy (Romulo) and Diabetes: Inspecting Feet (Romulo). Patient response to teaching: teach back provided, return demonstration provided and recall from last visit provided. Shared: Instruct Diabetic Problem: Completed Foot [...] instructed in pain management techniques, including: medication monitoring, relaxation techniques and positioning. Patient response to teaching: teach back provided, return demonstration provided and recall from last visit provided. Shared: Asess/Instruct on Problem: Completed Pain Shared: Monitoring/Management Pain Description: Management Assess/Instruct in Goal: interventions to monitor Shared: and mitigate pain: Patient medication will management/monitoring, achieve Joint protection/work adequate simplification pain techniques, Proper control adaptive equipment, Modification/adaptation of home/activity and Proper body mechanics Patient demonstrates progress towards the stated goals by addressing breathing and management of COPD. Shared: Patient Goals Problem: Completed Description: Shared: Patient stated goals: Patient increase strength, Strength, managing symptoms at Goals and home, be treated at home, Care walk without getting Preference short of breath, go to [facility], visit family, Goal: cook own meals and bathe Shared: and dress without Patient/Ca assistance. regiver will progress towards goals and achieve them Assessed for pressure ulcer. Patient instructed in pressure ulcer prevention, including: positioning and pressure relief measures. Patient response to teaching: teach back provided, teach back provided, but additional instruction needed and return demonstration provided. Shared: Assess/Instruct Problem: Completed on Pressure Ulcer Shared: Prevention Prevention Description: of Skin Patient has risk for Breakdown pressure ulcer due to - Pressure Theron scale, immobility, Ulcer nutrition status and Goal: moisture. Shared: Patient will not develop any new pressure ulcers and will teach back measures to prevent skin breakdown during this homecare episode Patient instructed on: environmental modifications for home safety, proper footwear, need for caregiver assist/supervsion and (Romulo): Fall Prevention. Patient response to teaching: teach back provided, return demonstration provided and recall from last visit provided. Shared: Instruct on Fall Problem: Completed Prevention/Home Safety Shared: Description: Risk of Assess/Instruct in fall Falls prevention. Goal: Shared: Patient will be safe in the home environmen t and will be able to teach back measures to reduce risk of falls/inju ry, with assistance from caregiver and/or device as needed documented in this encounter
--- OUTSIDE RECORDS SUMMARY | 2019-11-28 22:13 | XMS REPORT | Encounter Summary ---
Author Author [facility] Organization [facility] Address Unknown Phone Unavailable Care Team Providers Care Churn Driller Helper Name Role Phone Ebony Sharp MD PCP Reason for Visit * HH Auth Cert Referred By Contact Referred To Contact Status Reason Specialty Diagnoses / Procedures Encounter Details Care Team Description Date Type Department Gaby Wolff OT OT HOME VISIT 10/09/2019 Home Care Visit [facility] Home Care and page [facility] [address] [address] Social History Date Tobacco Use [...] Signs Reading Time Taken Comments Vital Sign 122/80 10/09/2019 1:40 PM FARMWORKER VEGETABLE Blood Pressure 83 10/09/2019 1:40 PM FARMWORKER VEGETABLE Pulse 37.2 C (99 F) 10/09/2019 1:40 PM FARMWORKER VEGETABLE Temperature 20 10/09/2019 1:33 PM FARMWORKER VEGETABLE Respiratory Rate 93% 10/09/2019 1:40 PM FARMWORKER VEGETABLE Oxygen Saturation - - Inhaled Oxygen Concentration - - Weight - - Height - - Body Mass Index documented in this encounter Plan of Treatment Care Team Description Date [place] [address] [place] [address] [phone] 02/29/2020 Office Visit Urology documented as of this encounter Visit Diagnoses Not on filedocumented in this encounter Home Health Visit - Care Plan Visit Type - OT Home Visit Discipline - Occupational Therapy Status Goals Interventions Problem Descriptio Start Date n Active 1 goal linked to scheduled/documented intervention 3 goal interventions scheduled/documented in this visit OT COPD: Decreased 10/04/2019 Aerobic Tolerance Disciplines: Occupational Therapy Active 1 goal linked [...] Deficit Related to Diabetic Foot Care Disciplines: Long-Term, Physical Therapy, Occupational Therapy, SHARED Active 1 goal linked to scheduled/documented intervention 1 goal intervention scheduled/documented in this visit Shared: Medication Management 09/09/2019 Management and Disciplines: Education Long-Term, Physical of All Therapy, Occupational Home Therapy, SHARED Medication s Including Prescripti on and OTC. Active 1 goal linked to scheduled/documented intervention 1 goal intervention scheduled/documented in this visit Shared: Pain Management 09/09/2019 Disciplines: Long-Term, Physical Therapy, Occupational Therapy, SHARED Active 1 goal linked to scheduled/documented intervention 1 goal intervention scheduled/documented in this visit Shared: Patient Strength, 09/09/2019 Goals and Care Preferences Disciplines: Long-Term, Physical Therapy, Occupational Therapy, SHARED Active 1 goal linked to scheduled/documented intervention 1 goal intervention scheduled/documented in this visit Shared: Prevention of 09/09/2019 Skin Breakdown - Pressure Ulcer Disciplines: Long-Term, Physical Therapy, Occupational Therapy, SHARED Active 1 goal linked to scheduled/documented intervention 1 goal intervention scheduled/documented in this visit Shared: Risk of Falls 09/09/2019 Disciplines: Long-Term, Physical Therapy, Occupational Therapy, SHARED Goal Met? Visit Notes Goal Associated Outcome Problem No OT COPD: Patient will OT COPD: have improved aerobic Decreased tolerance in order to Aerobic maximize functional Tolerance activity Description: Patient will tolerate 7 minutes of dynamic standing activity in order to simulate improved aerobic capacity for bathing, dressing, walking room to room and meal prep within 3 weeks. No OT COPD: OT COPD: Patient/caregiver will be Decreased independent with COPD Knowledge management and of Disease appropriate use of Management resources for retirement management of disease and decreased hospitalizations by [...] Notes Intervention Associated Status Problem/Go al Patient was educated on pursed lip breathing: breathe in like you are smelling a mayra and breathe out like a you are blowing out a candle, practice in sitting, standing/walking and supine for good habit training when need for a recovery breathing, exhale twice as long as inhale, perform slowly and stop if dizzy and provided handout. Patient response to teaching: teach back provided and return demonstration provided. OT educated for use of recognition of shortness of air and use of breathlessness positioning. OT provided patient with written/illustrated handout for reference. Patient demonstrated breathing techniques and recovery strategies, including breathlessness positioning and PLB. Patient response to teaching: teach back provided and return demonstration provided. OT: Breathing Training Problem: Completed OT COPD: Decreased Aerobic Tolerance Goal: OT COPD: Patient will have improved aerobic tolerance in order to maximize functional activity Patient was instructed in activity tolerance training, including ADL activity, aerobic test/exercise and progressive activity training. Patient demonstrated understanding of energy conservation and work simplification techniques, such as pacing self, seated position, frequently used items within each reach, slide rather than lift, plan ahead/prioritize tasks, priority tasks should be scheduled for peak performance periods and utilize frequent rest breaks. Response to teaching: teach back provided, but additional instruction needed OT: Energy Problem: Completed Conservation/Work OT COPD: Simplification Decreased Aerobic Tolerance Goal: OT COPD: Patient will have improved aerobic tolerance in order to maximize functional activity OT educated patient/caregiver in oxygen safety guidelines, as located in patient home care admission booklet, to include: no smoking, keep flammable material away from oxygen system and avoid covering the oxygen system. OT educated patient/caregiver in safe tubing management during functional activity. OT instructed patient/caregiver in tubing hygiene and maintenance. OT educated patient/caregiver in monitoring skin integrity for ears and nose related to nasal cannula use. OT: Oxygen Safety Problem: Completed Instruction OT COPD: Decreased Aerobic Tolerance Goal: OT COPD: Patient will have improved aerobic tolerance in order to maximize functional activity Patient educated on all items on the Education Handout and is able to verbalize understanding with 50% accuracy. Patient instructed in complications of COPD using Chronic Lung Disease - Avoiding Irritants and Allergens (Romulo) and Good Nutrition for Chronic Lung Disease (Romulo) and is able to verbalize understanding with 50% accuracy. OT COPD: Assess Disease Problem: Completed Management Knowledge OT COPD: Description: Decreased Occupational Therapist Knowledge will assess for patient of Disease s/caregiver Management s understanding of Goal: OT prognosis, management and COPD: avoiding of Patient/ca exacerbations. regiver will be independen t with COPD management and appropriat e use of resources for superintendent terminal management of disease and decreased hospitaliz ations by end of the episode of care Patient was instructed and returned demonstration with 50% accuracy. Needed cues for recognition of SOA and not to swallow sputum production, to check color odor and consistency. OT COPD: Educate on COPD Problem: Completed [...] (Romulo). Patient response to teaching: teach back provided and return demonstration provided. Shared: Instruct Diabetic Problem: Completed Foot [...] pain management techniques, including: medication monitoring, relaxation techniques, positioning and activity modifications. Patient response to teaching: teach back provided and return demonstration provided. Shared: Asess/Instruct on Problem: Completed Pain Shared: Monitoring/Management Pain Description: Management Assess/Instruct in Goal: interventions to monitor Shared: and mitigate pain: Patient medication will management/monitoring, achieve Joint protection/work adequate simplification pain techniques, Proper control adaptive equipment, Modification/adaptation of home/activity and Proper body mechanics Patient demonstrates progress towards the stated goals by addressing COPD education and instuction for PLB and recognition of SOA. Shared: Patient Goals Problem: Completed Description: Shared: Patient stated goals: Patient increase strength, Strength, managing symptoms at Goals and home, be treated at home, Care walk without getting Preference short of breath, go to [facility], visit family, Goal: cook own meals and bathe Shared: and dress without Patient/Ca assistance. regiver will progress towards goals and achieve them Assessed for pressure ulcer. Patient instructed in pressure ulcer prevention, including: positioning and pressure relief measures. Patient response to teaching: teach back provided, return demonstration provided and recall from last visit provided. Shared: Assess/Instruct Problem: Completed on Pressure [...] Prevention. Patient response to teaching: teach back provided and return demonstration provided. Shared: Instruct on Fall Problem: Completed Prevention/Home Safety Shared: Description: Risk of Assess/Instruct in fall Falls prevention. Goal: Shared: Patient will be safe in the home environmen t and will be able to teach back measures to reduce risk of falls/inju ry, with assistance from caregiver and/or device as needed documented in this encounter
--- OUTSIDE RECORDS SUMMARY | 2019-11-28 22:13 | XMS REPORT | Encounter Summary ---
Author Author [facility] Organization [facility] Address Unknown Phone Unavailable Care Team Providers Care Grid Maker Name Role Phone Ebony Sharp MD PCP Reason for Visit * HH Auth Cert Referred By Contact Referred To Contact Status Reason Specialty Diagnoses / Procedures Encounter Details Care Team Description Date Type Department Sherley Dixon CASE CONFERENCE 10/03/2019 Home Care Visit [facility] [address] [facility] [address] [place] [phone] Social History Date Tobacco Use Types Packs/Day [...] Description Date [place] [address] [place] [address] [phone] 02/29/2020 Office Visit Urology documented as of this encounter Visit Diagnoses Not on filedocumented in this encounter Home Health Visit - Care Plan Visit Type - Case Conference Discipline - SHARED Status Goals Interventions Problem Descriptio Start Date n Active 1 goal linked to scheduled/documented intervention 1 goal intervention scheduled/documented in this visit Shared: Advance 09/09/2019 Directives Disciplines: Long-Term, SHARED Active 1 goal linked to scheduled/documented [...] Visit Notes Goal Associated Outcome Problem No Shared: Advance Shared: directives obtained, or [...] Visit Notes Intervention Associated Status Problem/Go al Shared: Advance Problem: Scheduled Directives Shared: Requested/Obtained Advance Description: Directives Patient has Health Care Goal: Directive yes Shared: Durable Power of Braid Cutter Advance (DPOA), Health Care Power directives of Braid Cutter (HCPOA) and obtained, Living Will or if [...] getting Preference short of breath, go to mandaeism, visit family, Goal: cook own meals and bathe Shared: and dress without Patient/Ca assistance. regiver will progress towards goals and achieve them documented in this encounter
--- OUTSIDE RECORDS SUMMARY | 2019-11-28 22:13 | XMS REPORT | Encounter Summary ---
Author Author [facility] Organization [facility] Address Unknown Phone Unavailable Care Team Providers Care Hogshead Filler Name Role Phone Ebony Sharp MD PCP Reason for Visit * HH Auth Cert Referred By Contact Referred To Contact Status Reason Specialty Diagnoses / Procedures Encounter Details Care Team Description Date Type Department Shannon Rangel LPN SN HOME VISIT 10/12/2019 Home Care Visit [facility] [address] [address] Social History Date Tobacco Use [...] Signs Reading Time Taken Comments Vital Sign 104/68 10/12/2019 3:24 PM AMMONIA REFRIGERATION TECHNICIAN Blood Pressure 74 10/12/2019 3:24 PM AMMONIA REFRIGERATION TECHNICIAN Pulse 36.6 C (97.8 F) 10/12/2019 3:24 PM AMMONIA REFRIGERATION TECHNICIAN Temperature 16 10/12/2019 3:24 PM AMMONIA REFRIGERATION TECHNICIAN Respiratory Rate 95% 10/12/2019 3:24 PM AMMONIA REFRIGERATION TECHNICIAN Oxygen Saturation - - Inhaled Oxygen Concentration - - Weight - - Height - - Body Mass Index documented in this encounter Plan of Treatment Care Team Description Date [place] [address] [place] [address] [phone] 02/29/2020 Office Visit Urology documented as of this encounter Visit Diagnoses Not on filedocumented in this encounter Home Health Visit - Care Plan Visit Type - SN Home Visit Discipline - Fci Status Goals Interventions Problem Descriptio Start Date n Active 2 goals linked to scheduled/documented interventions 2 goal interventions scheduled/documented in this visit SN DM: Knowledge [...] SN DM: Patient/Caregiver SN DM: will provide return Knowledge demonstration on use of Deficit glucometer Related to Description: Diabetes within 2 weeks. No SN DM: Patient/Caregiver SN DM: will [...] Associated Status Problem/Go al Patient instructed on blood sugar monitoring: How to Check Your Blood Sugar (Romulo). Patient response to teaching: teach back provided, but additional instruction needed. SN DM: Instruct on Blood Problem: Completed Sugar Monitoring SN DM: Knowledge Deficit Related to Diabetes Goal: SN DM: Patient/Ca regiver will provide return demonstrat ion on use of glucometer Patient instructed on complications of diabetes mellitus: Shelter Complications of Diabetes (Romulo). Patient response to [...] fluids, complete bladder emptying, good hygiene and How to recognize signs and symptoms of infection: urgency, frequency, burning with urination, low back pain, oral fever greater than 101 F, change in coloer, odor of urine, confusion. Patient response to teaching: teach back provided. SN : Assess and Problem: Completed Instruct [...] Goal: Directive yes Shared: Durable Power of Railroad Car Truck Builder Advance (DPOA), Health Care Power directives of Railroad Car Truck Builder (HCPOA) and obtained, Living Will or if [...] management. Patient response to teaching: teach back provided, [...] Preference short of breath, go to s protestant, visit family, Goal: cook own meals and bathe Shared: and dress without Patient/Ca assistance. regiver will progress towards goals and achieve them documented in this encounter
--- OUTSIDE RECORDS SUMMARY | 2019-11-28 22:13 | XMS REPORT | Encounter Summary ---
Author Author [facility] Organization [facility] Address Unknown Phone Unavailable Care Team Providers Care New Car Driver Name Role Phone Ebony Sharp MD PCP Reason for Visit * HH Auth Cert Referred By Contact Referred To Contact Status Reason Specialty Diagnoses / Procedures Encounter Details Care Team Description Date Type Department Gaby Wolff, THELMA OT DISCIPLINE DISCHARGE 10/18/2019 Home Care Visit [facility] [address] [address] Social History Date Tobacco Use [...] Signs Reading Time Taken Comments Vital Sign 130/74 10/18/2019 12:20 PM IRONWORKER WIRE FENCE ERECTOR Blood Pressure 73 10/18/2019 12:20 PM IRONWORKER WIRE FENCE ERECTOR Pulse 36.4 C (97.6 F) 10/18/2019 12:20 PM IRONWORKER WIRE FENCE ERECTOR Temperature 18 10/18/2019 12:20 PM IRONWORKER WIRE FENCE ERECTOR Respiratory Rate 92% 10/18/2019 12:20 PM IRONWORKER WIRE FENCE ERECTOR Oxygen Saturation - - Inhaled Oxygen Concentration - - Weight - - Height - - Body Mass Index documented in this encounter Plan of Treatment Care Team Description Date [place] [address] [place] [address] [phone] 02/29/2020 Office Visit Urology documented as of this encounter Visit Diagnoses Not on filedocumented in this encounter Home Health Visit - Care Plan Visit Type - OT Discipline Discharge Discipline - Occupational Therapy Status Goals Interventions [...] visit OT COPD: Decreased 10/04/2019 Knowledge of Inhaled Medications Disciplines: Occupational Therapy Active 1 goal linked to scheduled/documented intervention 1 goal intervention scheduled/documented in this visit OT COPD: Shortness of 10/04/2019 Breath Disciplines: Occupational Therapy Active 1 goal linked to scheduled/documented intervention 1 goal intervention scheduled/documented in this visit Shared: Diabetes: 09/09/2019 Knowledge Deficit Related to Diabetic Foot Care Disciplines: Fpc, Physical Therapy, Occupational Therapy, SHARED Active 1 goal linked to scheduled/documented intervention 1 goal intervention scheduled/documented in this visit Shared: Medication Management 09/09/2019 Management and Disciplines: Education Fpc, Physical of All Therapy, Occupational Home Therapy, SHARED Medication s Including Prescripti on and OTC. Active 1 goal linked to scheduled/documented intervention 1 goal intervention scheduled/documented in this visit Shared: Pain Management 09/09/2019 Disciplines: Fpc, Physical Therapy, Occupational Therapy, SHARED Active 1 goal linked to scheduled/documented intervention 1 goal intervention scheduled/documented in this visit Shared: Patient Strength, 09/09/2019 Goals and Care Preferences Disciplines: Fpc, Physical Therapy, Occupational Therapy, SHARED Active 1 goal linked to scheduled/documented intervention 1 goal intervention scheduled/documented in this visit Shared: Prevention of 09/09/2019 Skin Breakdown - Pressure Ulcer Disciplines: Fpc, Physical Therapy, Occupational Therapy, SHARED Active 1 goal linked to scheduled/documented intervention 1 goal intervention scheduled/documented in this visit Shared: Risk of Falls 09/09/2019 Disciplines: Fpc, Physical Therapy, Occupational Therapy, SHARED Goal Met? Visit Notes Goal Associated Outcome Problem Yes OT COPD: Patient will OT COPD: Achieved have improved aerobic Decreased tolerance in order to Aerobic maximize functional Tolerance activity Description: Patient will tolerate 7 minutes of dynamic standing activity in order to simulate improved aerobic capacity for bathing, dressing, walking room to room and meal prep within 3 weeks. Yes OT COPD: OT COPD: Achieved Patient/caregiver will be Decreased independent with COPD Knowledge management and of Disease appropriate use of Management resources for usp management of disease and decreased hospitalizations by end of the episode of care Yes OT COPD: OT COPD: Achieved Patient/Caregiver Decreased demonstrate effective use Knowledge and timing of oral and of Inhaled inhaled meds to maximize Medication functional activity s Description: with modified independence by 3 weeks Yes OT COPD: Patient OT COPD: Achieved demonstrates improved Shortness management of shortness of [...] handout. Patient response to teaching: teach back provided, return demonstration provided and recall from last visit provided. OT educated for use of diaphragmatic breathing, recognition of shortness of air and use of breathlessness positioning. OT provided patient with written/illustrated handout for reference. Patient was educated on diaphragmatic breathing: Supine and Seated inhale with lower abdomen expanding and exhale pulling in abdominal muscles to facilitate upward movement of diaphragm. Patient demonstrated breathing techniques and recovery strategies, including breathlessness positioning and pursed lip breathing. Patient response to teaching: teach back provided, return demonstration provided and recall from last visit provided. OT: Breathing Training Problem: Completed OT COPD: Decreased Aerobic Tolerance Goal: OT COPD: Patient will have improved aerobic tolerance in order to maximize functional activity Patient was instructed in activity tolerance training, including ADL activity, aerobic test/exercise and progressive activity training. Patient demonstrated understanding of energy conservation and work simplification techniques, such as pacing self, seated position, proper body mechanics, frequently used items within each reach, utilizing grocery delivery, slide rather than lift, plan ahead/prioritize tasks, priority tasks should be s cheduled for peak performance periods, utilize frequent rest breaks and do no work above shoulder level. Response to teaching: teach back provided, return demonstration provided and recall from last visit provided OT: Energy Problem: Completed Conservation/Work OT COPD: Simplification Decreased Aerobic Tolerance Goal: OT COPD: Patient will have improved aerobic tolerance in order to maximize functional activity OT educated patient/caregiver in oxygen safety guidelines, as located in [facility] care admission booklet, to include: maintenance of emergency back- up portable cylinder, no smoking, keep flammable material away from oxygen system, avoid covering the oxygen system and avoid use of electrical appliances while wearing oxygen. OT educated patient/caregiver in safe tubing management [...] and is able to verbalize understanding with 100% accuracy. Patient instructed in complications of COPD using Chronic Lung Disease - Avoidi ng Irritants and Allergens (Krames), Chronic Lung Disease - Maintaining a Health Weight (Krames), Chronic Lung Disease - Becoming More Active (Krames), Chronic Lung Disease - Maximizing Your Energy (Krames), Coping with Shortness of Breath: Controlling Stress (Krames) and Good Nutrition for Chronic Lung Disease (Krames) and is able to verbalize understanding with 75% accuracy. OT COPD: Assess Disease Problem: Completed Management Knowledge OT COPD: Description: Decreased Occupational Therapist Knowledge will assess for patient of Disease s/caregiver Management s understanding of Goal: OT prognosis, management and COPD: avoiding of Patient/ca exacerbations. 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 Needed cues for PRN use of nebulizer. OT COPD: Assess Problem: Completed Administration of Inhaled OT COPD: Medications Decreased Description: Knowledge Occupational Therapist of Inhaled will educate on Medication incorporation of inhaled s medication program into Goal: OT therapeutic program for COPD: maximal benefit with Patient/Ca dyspnea control regiver demonstrat e effective use and timing of oral and inhaled meds to maximize functional activity Patient was instructed and returned demonstration with 100% accuracy. OT COPD: Educate on COPD Problem: Completed [...] response to teaching: teach back provided and recall from last visit provided. Shared: Asess/Instruct on Problem: Completed Pain Shared: Monitoring/Management Pain Description: Management Assess/Instruct in Goal: interventions to monitor Shared: and mitigate pain: Patient medication will management/monitoring, achieve Joint protection/work adequate simplification pain techniques, Proper control adaptive equipment, Modification/adaptation of home/activity and Proper body mechanics Patient demonstrates progress towards the stated goals by addressing goals for discipline discharge. Shared: Patient Goals Problem: Completed Description: Shared: Patient stated goals: Patient increase strength, Strength, managing symptoms at Goals and home, be treated at home, Care walk without getting Preference short of breath, go to buddhism, visit family, Goal: cook own meals and bathe Shared: and dress without Patient/Ca assistance. regiver will progress towards goals and achieve them Assessed for pressure ulcer. Patient instructed in pressure ulcer prevention, including: positioning and pressure relief measures. Patient response to teaching: teach back provided and return demonstration provided. Shared: Assess/Instruct Problem: [...]
--- OUTSIDE RECORDS SUMMARY | 2019-11-28 22:13 | XMS REPORT | Encounter Summary ---
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 Care Insole Department Worker Name Role Phone Ebony Sharp MD PCP Reason for Visit * Reason Comments Other Encounter Details Care Team Description Date Type Department Ebony Sharp MD [address] [facility] [address] [place] [address] [phone] Other 10/13/2019 Refill [facility] (walk-in clinic) [address] [facility] [address] [place], [place] [id number] Social History Date Tobacco Use Types Packs/Day [...] Description Date [place] [address] [place] [address] [phone] 02/29/2020 Office Visit Urology documented as of this encounter Visit Diagnoses Diagnosis Chronic obstructive pulmonary disease, unspecified COPD type (HCC) documented in this encounter
--- OUTSIDE RECORDS SUMMARY | 2019-11-28 22:13 | XMS REPORT | Encounter Summary ---
Author Author [facility] Organization [facility] Address Unknown Phone Unavailable Care Team Providers Care Manager Of Financial Reporting Name Role Phone Ebony Sharp MD PCP Encounter Details Care Team Description Date Type Department Letty Ragland RN 10/11/2019 Telephone [facility] (walk-in clinic) [address] [facility] [address] [place], [place] [id number] Social History Date Tobacco Use Types Packs/Day [...] history available. documented as of this encounter Miscellaneous Notes * Telephone Encounter - Ebony Sharp MD - 10/15/2019 8:06 PM MACHINE COMPOSITOR Please check in with the patient to make sure that she is wearing her O2 and patrick t she is feeling comfortable. She actually looked pretty stable when I saw her before I left for my meeting. INE COMPOSITOR * Telephone Encounter - Letty Ragland RN - 10/11/2019 3:01 PM MACHINE COMPOSITOR Received phone call from Gaby Occupational Therapist with [facility] [phone]. OT wanted to report that patient does not wear her oxygen as m uch as she should due to having episodes of dizziness and cold sweats. Patient does de sat when up and moving around /with activity. Patient also stated that she is not doing her nebulizer treatments as prescribed, only PRN when she has c hest pain or wheezing. Patient rarely is using her rescue inhaler either. Keturah schultz has mentioned to the patient about increasing her O2 use with activity and to do nebulizer treatments as prescribed. INE COMPOSITOR documented in this encounter Plan of Treatment Care Team Description Date [place] [address] [place] [address] [phone] 02/29/2020 Office Visit Urology documented as of this encounter Visit Diagnoses Not on filedocumented in this encounter
--- OUTSIDE RECORDS SUMMARY | 2019-11-28 22:13 | XMS REPORT | Encounter Summary ---
Author Author [facility] Organization [facility] Address Unknown Phone Unavailable Care Team Providers Care Body Straightener Name Role Phone Ebony Sharp MD PCP Reason for Visit * HH Auth Cert Referred By Contact Referred To Contact Status Reason Specialty Diagnoses / Procedures Encounter Details Care Team Description Date Type Department Gaby Wolff OT OT HOME VISIT 10/11/2019 Home Care Visit [facility] Home Care and page [facility] [address] [facility] [address] [place] [address] Social History Date Tobacco Use [...] Signs Reading Time Taken Comments Vital Sign 110/60 10/11/2019 1:40 PM CARE MGR Blood Pressure 69 10/11/2019 1:40 PM CARE MGR Pulse 36.3 C (97.3 F) 10/11/2019 1:40 PM CARE MGR Temperature 18 10/11/2019 1:40 PM CARE MGR Respiratory Rate 97% 10/11/2019 1:44 PM CARE MGR with PLB Oxygen Saturation - - Inhaled Oxygen Concentration - - Weight - - Height - - Body Mass Index documented in this encounter Plan of Treatment Care Team Description Date [place] [address] [place] [address] [phone] 02/29/2020 Office Visit Urology documented as of [...] Deficit Related to Diabetic Foot Care Disciplines: Chcf, Physical Therapy, Occupational Therapy, SHARED Active 1 goal linked to scheduled/documented intervention 1 goal intervention scheduled/documented in this visit Shared: Medication Management 09/09/2019 Management and Disciplines: Education Chcf, Physical of All Therapy, Occupational Home Therapy, SHARED Medication s Including Prescripti on and OTC. Active 1 goal linked to scheduled/documented intervention 1 goal intervention scheduled/documented in this visit Shared: Pain Management 09/09/2019 Disciplines: Chcf, Physical Therapy, Occupational Therapy, SHARED Active 1 goal linked to scheduled/documented intervention 1 goal intervention scheduled/documented in this visit Shared: Patient Strength, 09/09/2019 Goals and Care Preferences Disciplines: Chcf, Physical Therapy, Occupational Therapy, SHARED Active 1 goal linked to scheduled/documented intervention 1 goal intervention scheduled/documented in this visit Shared: Prevention of 09/09/2019 Skin Breakdown - Pressure Ulcer Disciplines: Chcf, Physical Therapy, Occupational Therapy, SHARED Active 1 goal linked to scheduled/documented intervention 1 goal intervention scheduled/documented in this visit Shared: Risk of Falls 09/09/2019 Disciplines: Chcf, Physical Therapy, Occupational Therapy, SHARED Goal Met? [...] Disease appropriate use of Management resources for counterperson management of disease and decreased hospitalizations by [...] perform slowly and stop if dizzy and reviewed handout. oT discussed for pt to wear O2 for showering, pt states she does not like to wear in the shower, OT exlained and educ pt showering is a taxing activity and uses O2, desating in shower is not safe. OT recommended having O2 close by shower for use as needed. Patient response to teaching: teach back provided, return demonstration provided and recall from last visit provided. OT educated for use of diaphragmatic breathing, recognition of shortness of air and use of breathlessness positioning. OT provided patient with written/illustrated handout for reference. Patient was educated on diaphragmatic breathing: Supine inhale with lower abdomen expanding and exhale [...] position, frequently used items within each reach, utilizing grocery delivery, slide rather than lift, plan ahead/prioritize tasks, priority tasks should be scheduled for peak perfo rmance periods, utilize frequent rest breaks and do no work above shoulder level. Response to teaching: teach back provided, return demonstration provided and recall from last visit provided OT: Energy Problem: Completed Conservation/Work OT COPD: Simplification Decreased Aerobic Tolerance Goal: OT COPD: Patient will have improved aerobic tolerance in order to maximize functional activity OT educated patient/caregiver in oxygen safety guidelines, as located in [facility] home care admission booklet, to include: maintenance of emergency back- up portable cylinder, keep flammable material away from oxygen system, avoid covering the oxygen system and avoid use of electrical appliances while wearing oxygen. OT educated patient/caregiver in safe tubing management during functional activity, keeping tubing coiled prior to ambuatlion for fall prevention. OT instructed patient/caregiver in tubing hygiene and maintenance. OT educated patient/caregiver in monitoring skin integrity for ears and nose related to nasal cannula use. OT: Oxygen Safety Problem: Completed Instruction OT COPD: Decreased Aerobic Tolerance Goal: OT COPD: Patient will have improved aerobic tolerance in order to maximize functional activity Patient educated on items on the Education Handout and is able to verbalize understanding with 50% accuracy. Needed cues for proper breathing using PLB Patient instructed in complications of COPD using Chronic Lung Disease - Maximizing Your Energy (Krames) and is able to verbalize understanding with 50% accuracy. Needed cues for frequent use of rest breaks, sitting for showering and plannin ahead for activity for the day. OT COPD: Assess Disease Problem: Completed Management Knowledge OT COPD: Description: Decreased Occupational Therapist Knowledge will assess for patient of Disease s/caregiver Management s understanding of Goal: OT prognosis, management and COPD: avoiding of Patient/ca exacerbations. regiver will be independen t with COPD management and appropriat e use of resources for senior care management of disease and decreased hospitaliz ations by end of the episode of care Patient was instructed and returned demonstration with 75% accuracy. Needed cues for keeping out and accessible for reminder. OT COPD: Educate on COPD Problem: Completed [...] the stated goals by addressing COPD education for managing SOA with activity. Shared: Patient Goals Problem: Completed Description: Shared: Patient stated goals: Patient increase strength, Strength, managing symptoms at Goals and home, be treated at home, Care walk without getting Preference short of breath, go to s taoist, visit family, Goal: cook own meals and [...] proper footwear, need for caregiver assist/supervsion and emergency precautions. Patient response to teaching: teach back provided, [...]
--- OUTSIDE RECORDS SUMMARY | 2019-11-28 22:13 | XMS REPORT | Encounter Summary ---
Author Author [facility] Organization [facility] Address Unknown Phone Unavailable Care Team Providers Care Care Provider Name Role Phone Ebony Sharp MD PCP Reason for Visit * HH Auth Cert Referred By Contact Referred To Contact Status Reason Specialty Diagnoses / Procedures Encounter Details Care Team Description Date Type Department Vanessa Burch, PT PT HOME VISIT 10/12/2019 Home Care Visit [facility] Home Care and [facility] [address] [address] Social History Date Tobacco Use [...] Signs Reading Time Taken Comments Vital Sign 124/70 10/12/2019 1:30 PM JINRIKSHA DRIVER Blood Pressure 78 10/12/2019 1:30 PM JINRIKSHA DRIVER Pulse 36.7 C (98 F) 10/12/2019 1:30 PM JINRIKSHA DRIVER Temperature 18 10/12/2019 1:30 PM JINRIKSHA DRIVER Respiratory Rate 96% 10/12/2019 1:30 PM JINRIKSHA DRIVER Oxygen Saturation - - Inhaled Oxygen Concentration - - Weight - - Height - - Body Mass Index documented in this encounter Plan of Treatment Care Team Description Date [place] [address] [place] [address] [phone] 02/29/2020 Office Visit Urology documented as of [...] Deficit Related to Diabetic Foot Care Disciplines: Jail, Physical Therapy, Occupational Therapy, SHARED Active 1 goal linked to scheduled/documented intervention 1 goal intervention scheduled/documented in this visit Shared: Medication Management 09/09/2019 Management and Disciplines: Education Jail, Physical of All Therapy, Occupational Home Therapy, SHARED Medication s Including Prescripti on and OTC. Active 1 goal linked to scheduled/documented intervention 1 goal intervention scheduled/documented in this visit Shared: Pain Management 09/09/2019 Disciplines: Jail, Physical Therapy, Occupational Therapy, SHARED Active 1 goal linked to scheduled/documented intervention 1 goal intervention scheduled/documented in this visit Shared: Patient Strength, 09/09/2019 Goals and Care Preferences Disciplines: Jail, Physical Therapy, Occupational Therapy, SHARED Goal Met? [...] pain reduced to patient stated goal of 2 No Shared: Patient/Caregiver Shared: will progress towards Patient goals and achieve them Strength, Goals and Care Preference s Variance Visit Notes Intervention Associated Status Problem/Go al Patient completed 5 min on sitting exercises and 5 min of standing activity. PT: Activity Tolerance Problem: Completed Training PT [...] need for a recover breathing. Patient required min verbal cues for technique with activity. PT: Shortness of Breath Problem: Completed Management PT COPD: Decreased Aerobic Tolerance Goal: PT COPD: Patient will have improved aerobic tolerance in order to maximize functional activity Patient instructed in and performed ambulation 100 feet on level with multiple turns using no assistive device with supervision and verbal cues for proper posture. PT: Gait Training Problem: Completed PT: Decreased [...] add, hip abd and LAQ x 20 reps. Patient required occasional verbal cues for staying on task. Performance improved by increased number of reps [...] Patient instructed in pain management techniques, including: activity modifications. Patient response to teaching: teach [...] towards the stated goals by working on increasing ambulation distance and activty tolerance. Shared: Patient Goals Problem: Completed Description: Shared: Patient stated goals: Patient increase strength, Strength, managing symptoms at Goals and home, be treated at home, Care walk without getting Preference short of breath, go to s sikh, visit family, Goal: cook own meals and bathe Shared: and dress without Patient/Ca assistance. regiver will progress towards goals and achieve them documented in this encounter
--- OUTSIDE RECORDS SUMMARY | 2019-11-28 22:13 | XMS REPORT | Encounter Summary ---
Author Author [facility] Organization [facility] Address Unknown Phone Unavailable Care Team Providers Care Visitor Services Assistant Name Role Phone Ebony Sharp MD PCP Reason for Visit * HH Auth Cert Referred By Contact Referred To Contact Status Reason Specialty Diagnoses / Procedures Encounter Details Care Team Description Date Type Department Gaby Wolff OT OT INITIAL EVALUATION 10/04/2019 Home Care Visit [facility] Home Care and [facility] 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 LABORER Blood Pressure 72 10/04/2019 12:30 PM INDUSTRIAL LABORER Pulse 35.9 C (96.7 F) 10/04/2019 12:30 PM INDUSTRIAL LABORER Temperature 18 10/04/2019 12:30 PM INDUSTRIAL LABORER Respiratory Rate 92% 10/04/2019 12:30 PM INDUSTRIAL LABORER with PLB Oxygen Saturation - - Inhaled Oxygen Concentration - - Weight - - Height - - Body Mass Index documented in this encounter Plan of Treatment Care Team Description Date [place] [address] [place] [address] [phone] 02/29/2020 Office Visit Urology documented as of this encounter Visit Diagnoses Not on filedocumented in this encounter Home Health Visit - Care Plan Visit Type - OT Initial Evaluation Discipline - Occupational Therapy Status Goals Interventions Problem Descriptio Start Date n Active 1 goal linked to scheduled/documented intervention 2 goal interventions scheduled/documented in this visit OT [...] 2 goal interventions scheduled/documented in this visit Shared: Patient/Provider 09/09/2019 Communication and Provision of Supplies Disciplines: Jail, Physical Therapy, Occupational Therapy, SHARED Active 1 goal linked to scheduled/documented intervention 1 goal intervention scheduled/documented in this visit Shared: Prevention of 09/09/2019 Skin Breakdown - Pressure Ulcer Disciplines: Jail, Physical Therapy, Occupational Therapy, SHARED Active 1 goal linked to scheduled/documented intervention 1 goal intervention scheduled/documented in this visit Shared: Risk of Falls 09/09/2019 Disciplines: Jail, Physical Therapy, Occupational Therapy, [...] and meal prep within 3 weeks. No Shared: Patient will be Shared: able [...] Goals and Care Preference s No Shared: Plan of Care Shared: communicated to Patient/Pr patient/demetrio and coryer physician Communicat ion and Provision of Supplies No Shared: Patient will not Shared: develop [...] teach back provided, but additional instruction needed. OT educated for use of recognition of shortness of air and use of breathlessness positioning. OT provided patient with written/illustrated handout for reference. Patient demonstrated breathing techniques and recovery strategies, including pursed lip breathing. Patient response to teaching: teach back provided, but additional instruction needed. OT: Breathing Training Problem: Completed OT COPD: Decreased Aerobic Tolerance Goal: OT COPD: Patient will have improved aerobic tolerance in order to maximize functional activity Patient was instructed in activity tolerance training, including ADL activity, aerobic test/exercise and progressive activity training. Patient demonstrated understanding of energy conservation and work simplification techniques, such as pacing self, seated position, frequently used items within each reach, plan ahead/prioritize tasks and utilize frequent rest breaks. Response to teaching: teach back provided, but additional instruction needed OT: Energy Problem: Completed Conservation/Work OT COPD: Simplification Decreased Aerobic Tolerance Goal: OT COPD: Patient will have improved aerobic tolerance in order to maximize functional activity Patient instructed in diabetic foot care of: Diabetes: Keeping Feet Healthy (Romulo) and Diabetes: Inspecting Feet (Krames). Patient response to teaching: teach back provided [...] management techniques, including: medication monitoring, relaxation techniques, positioning, activity modifications and proper adaptive equipment. Patient response to teaching: teach back provided, but additional instruction needed. Shared: Asess/Instruct on Problem: Completed Pain Shared: Monitoring/Management Pain Description: Management Assess/Instruct in Goal: interventions to monitor Shared: and mitigate pain: Patient medication will management/monitoring, achieve Joint protection/work adequate simplification pain techniques, Proper control adaptive equipment, Modification/adaptation of home/activity and Proper body mechanics Patient demonstrates progress towards the stated goals by breathing with activity and early recognition of SOA. Shared: Patient Goals Problem: Completed Description: Shared: Patient stated goals: Patient increase strength, Strength, managing symptoms at Goals and home, be treated at home, Care walk without getting Preference short of breath, go to s adventism, visit family, Goal: cook own meals and bathe Shared: and dress without Patient/Ca assistance. regiver will progress towards goals and achieve them Plan of Care communicated to Dr. Ebony Sharp MD on 10/04/19. Waiting on return confirmation of Plan of Care Comments: Shared: Plan of Care Problem: Completed Communication with Shared: Physician Patient/Pr ovider Communicat ion and Provision of Supplies Goal: Shared: Plan of Care communicat ed to patient/ca rgiver and physician Instructed patient/caregiver on discharge planning and services to be provided on the plan of care. Patient/Caregiver informed of ordered services with Occupational Therapy. Patient to be seen at least 1 time(s) a week for at least 1 week, 2w2. Patient/caregiver in agreement with plan of care. Per Insurance Verification on this date, explained patient is responsible for non-covered supplies during HH episode. Patient/Caregiver verbalized able to teach back fully. Shared: Plan of Care and Problem: Completed Provision of Supplies Shared: Communicated to Patient Patient/Pr ovider Communicat ion and Provision of Supplies Goal: Shared: Plan of Care communicat ed to patient/ca rgiver and physician Assessed for pressure ulcer. Patient instructed in [...] home safety, proper footwear, need for caregiver assist/supervsion, emergency precautions and (Romulo): Fall Prevention. Patient response to teaching: teach back provided, but additional instruction needed. Shared: Instruct on Fall Problem: Completed Prevention/Home Safety Shared: Description: Risk of Assess/Instruct in fall Falls prevention. Goal: Shared: Patient will be safe in the home environmen t and will be able to teach back measures to reduce risk of falls/inju ry, with assistance from caregiver and/or device as needed documented in this encounter
--- OUTSIDE RECORDS SUMMARY | 2019-11-28 22:13 | XMS REPORT | Encounter Summary ---
Author Author [facility] Organization [facility] Address Unknown Phone Unavailable Care Team Providers Care Demographic Analyst Name Role Phone Ebony Sharp MD PCP Reason for Visit * HH Auth Cert Referred By Contact Referred To Contact Status Reason Specialty Diagnoses / Procedures Encounter Details Care Team Description Date Type Department Vanessa Burch, PT PT INITIAL EVALUATION 10/05/2019 Home Care Visit [facility] Home Care and [facility] [address] [facility] [address] [place] [address] Social History Date Tobacco Use [...] Signs Reading Time Taken Comments Vital Sign 112/66 10/05/2019 1:10 PM PROPERTY UNDERWRITER Blood Pressure 68 10/05/2019 1:10 PM PROPERTY UNDERWRITER Pulse 36.3 C (97.4 F) 10/05/2019 1:10 PM PROPERTY UNDERWRITER Temperature 18 10/05/2019 1:10 PM PROPERTY UNDERWRITER Respiratory Rate 94% 10/05/2019 1:10 PM PROPERTY UNDERWRITER Oxygen Saturation - - Inhaled Oxygen Concentration - - Weight - - Height - - Body Mass Index documented in this encounter Plan of Treatment Care Team Description Date [place] [address] [place] [address] [phone] 02/29/2020 Office Visit Urology documented as of this encounter Visit Diagnoses Not on filedocumented in this encounter Home Health Visit - Care Plan Visit Type - PT Initial Evaluation Discipline - Physical Therapy Status Goals Interventions [...] Deficit Related to Diabetic Foot Care Disciplines: Correction, Physical Therapy, Occupational Therapy, SHARED Active 1 goal linked to scheduled/documented intervention 1 goal intervention scheduled/documented in this visit Shared: Medication Management 09/09/2019 Management and Disciplines: Education Correction, Physical of All Therapy, Occupational Home Therapy, SHARED Medication s Including Prescripti on and OTC. Active 1 goal linked to scheduled/documented intervention 1 goal intervention scheduled/documented in this visit Shared: Pain Management 09/09/2019 Disciplines: Correction, Physical Therapy, Occupational Therapy, SHARED Active 1 goal linked to scheduled/documented intervention 1 goal intervention scheduled/documented in this visit Shared: Patient Strength, 09/09/2019 Goals and Care Preferences Disciplines: Correction, Physical Therapy, Occupational Therapy, SHARED Active 1 goal linked to scheduled/documented intervention 2 goal interventions scheduled/documented in this visit Shared: Patient/Provider 09/09/2019 Communication and Provision of Supplies Disciplines: Correction, Physical Therapy, Occupational Therapy, SHARED Active 1 goal linked to scheduled/documented intervention 1 goal intervention scheduled/documented in this visit Shared: Prevention of 09/09/2019 Skin Breakdown - Pressure Ulcer Disciplines: Correction, Physical Therapy, Occupational Therapy, SHARED Active 1 goal linked to scheduled/documented intervention 1 goal intervention scheduled/documented in this visit Shared: Risk of Falls 09/09/2019 Disciplines: Correction, Physical Therapy, Occupational Therapy, SHARED Goal Met? [...] ambulation within 3 weeks. No PT: Patient to be PT: independent [...] al Patient instructed on Using Oxygen Safely (Kraeleuterio) and O2 tubing management. Patient response to instruction: teach back provided, but additional instruction needed. PT: Instruct on Oxygen Problem: Completed Use PT COPD: Decreased Aerobic Tolerance Goal: PT COPD: Patient will have improved aerobic tolerance in order to maximize functional activity Breathing exercises: Patient instructed and returned demonstration of pursed lip breathing. Patient required mod verbal cues for technique. PT: Shortness of Breath Problem: Completed Management PT COPD: Decreased Aerobic Tolerance Goal: PT COPD: Patient will have improved aerobic tolerance in order to maximize functional activity Patient was instructed in and returned demonstration of seated home exercise program with mod verbal cues for completing 1-2x/day. PT: Establish or Upgrade Problem: Completed Home Exercise Program PT: Decreased Knowledge of Home Exercise Program Goal: PT: Patient to be independen t in home exercise program Patient was instructed and returned demonstration in: Seated: ankle pumps, marching, hip add, hip abd and LAQ x 10 reps. Patient required mod verbal cues for technique. Performance improved by increased number of reps [...] progress towards the stated goals by working with therapist to complete eval and establish goals. Shared: Patient Goals Problem: Completed Description: Shared: Patient stated goals: Patient increase strength, Strength, managing symptoms at Goals and home, be treated at home, Care walk without getting Preference short of breath, go to s jew, visit family, Goal: cook own meals and bathe Shared: and dress without Patient/Ca assistance. regiver will progress towards goals and achieve them Plan of Care communicated to Dr. Sharp on 10/05/19. Received return communication on 10/05/19 via phone. Physician provided verbal confirmation for PT POC. Comments: Shared: Plan of Care Problem: Completed Communication with Shared: Physician Patient/Pr ovider Communicat ion and Provision of Supplies Goal: Shared: Plan of Care communicat ed to patient/ca rgiver and physician Instructed patient/caregiver on discharge planning and services to be provided on the plan of care. Patient/Caregiver informed of ordered services with Physical Therapy. Patient to be seen at least 1 time(s) a week for at least 4 weeks. Patient/caregiver in agreement with plan of care. [...] Patient instructed in pressure ulcer prevention, including: pressure relief measures, nutrition and managing moisture. Patient response to teaching: teach back provided, but additional instruction needed. Shared: Assess/Instruct Problem: Completed on Pressure Ulcer [...] on: environmental modifications for home safety, proper footwear and need for caregiver assist/supervsion. Patient response to teaching: teach back provided, [...]
--- OUTSIDE RECORDS SUMMARY | 2019-11-28 22:13 | XMS REPORT | Encounter Summary ---
Author Author [facility] Organization [facility] Address Unknown Phone Unavailable Care Team Providers Care Coconut Cooker Name Role Phone Ebony Sharp MD PCP Reason for Visit * Diagnostic Imaging (Routine) Referred By Contact Referred To Contact Status Reason Specialty Diagnoses / [place] [address] [place] [address] [facility] [address] [place] [address] Authorized Radiology Diagnoses Nephrolithiasis P rocedures US Renal complete Encounter Details Care Team Description Date Type [place] [address], [place] [address] [phone] Canceled (Rescheduled[facility] [address] [place] [address] Social History Date Tobacco Use Types Packs/Day [...] history available. documented as of this encounter Medications at Time of Discharge [...] tablet (40 mg total) by mouth daily. 09/29/2019 cephalexin (KEFLEX) 500 Take 1 15 [...] billion capsules by cell capsule mouth daily. 10/01/2019 oxyCODONE-acetaminophen Take 1 tablet 30 tablet [...] A/vit Take by mouth 0 C/biotin/zinc/copper daily. (CBQL-NEZA-DNHC,VIT A,C-BIOTIN, ORAL) 08/25/2019 10/13/2019 BREO ELLIPTA 200-25 INHALE 1 PUFF 60 each 0 mcg/dose BY MOUTH INHALERIndications: DAILY Chronic obstructive pulmonary disease, unspecified COPD type ([facility]) 06/17/2019 10/27/2019 cyclobenzaprine Take 1 tablet 90 tablet 0 (FLEXERIL) 10 MG tablet (10 mg total) by mouth 3 (three) times a day as needed for muscle spasms. 07/18/2019 10/27/2019 gabapentin (NEURONTIN) TAKE 2 540 capsule 0 300 MG capsule CAPSULES BY MOUTH THREE TIMES DAILY 09/22/2019 10/18/2019 HYDROcodone-acetaminophen Take 1 tablet 10 tablet 0 (NORCO) 5-325 mg per by mouth tablet every 6 (six) hours as needed for pain. Max Daily Dose: 4 tablets 07/18/2019 10/30/2019 metoprolol tartrate TAKE 1 TABLET 180 tablet 0 (LOPRESSOR) 100 MG tablet BY MOUTH TWICE DAILY documented as of this encounter Plan of Treatment Care Team Description [place] [address] [place] [address] [phone] 02/29/2020 Office Visit Urology documented as of this encounter Visit Diagnoses Not on filedocumented in this encounter
--- OUTSIDE RECORDS SUMMARY | 2019-11-28 22:13 | XMS REPORT | Encounter Summary ---
Author Author [facility] Organization [facility] Address Unknown Phone Unavailable Care Team Providers Care Vascular Ultrasound Technician Name Role Phone Ebony Sharp MD PCP Reason for Visit * Reason Comments Other Encounter Details Care Team Description Date Type Department Art Watts II, DO [address] [place] [address] [phone] Other 10/13/2019 Refill [facility] [address] [place] [address] Social History Date Tobacco Use Types Packs/Day [...] Description Date [place] [address] [place] [address] [phone] 02/29/2020 Office Visit Urology documented as of this encounter Visit Diagnoses Not on filedocumented in this encounter
--- OUTSIDE RECORDS SUMMARY | 2019-11-28 22:14 | XMS REPORT | Encounter Summary ---
Author Author [facility] Organization [facility] Address Unknown Phone Unavailable Care Team Providers Care Crib Tender Name Role Phone Ebony Sharp MD PCP Reason for Visit * HH Auth Cert Referred By Contact Referred To Contact Status Reason Specialty Diagnoses / Procedures Encounter Details Care Team Description Date Type Department Aury Louis RN SN OASIS RESUMPTION OF CARE 09/27/2019 Home Care Visit [facility] Home Care and [facility] 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 Blood Pressure 68 09/27/2019 11:16 AM BROKERAGE OFFICE MANAGER Pulse 36.1 C (97 F) 09/27/2019 11:16 AM BROKERAGE OFFICE MANAGER Temperature 14 09/27/2019 11:16 AM BROKERAGE OFFICE MANAGER Respiratory Rate 94% 09/27/2019 11:16 AM BROKERAGE OFFICE MANAGER Oxygen Saturation - - Inhaled Oxygen Concentration - - Weight - - Height - - Body Mass Index documented in this encounter Plan of Treatment Care Team Description Date [place] [address] [place] [address] [phone] 02/29/2020 Office Visit Urology documented as of this encounter Visit Diagnoses Not on filedocumented in this encounter Home Health Visit - Care Plan Visit Type - SN OASIS Resumption Of Ca re Discipline - [facility] Status Goals Interventions Problem Descriptio Start Date n Active 1 goal linked to scheduled/documented intervention 4 goal interventions scheduled/documented in this visit Resumption 09/27/2019 Disciplines: [facility], Gum Maker, SHARED Active 2 goals linked to scheduled/documented interventions 2 goal interventions scheduled/documented in this visit SN DM: Knowledge Deficit 09/09/2019 Related to Diabetes Disciplines: [facility] Active 1 goal linked to scheduled/documented intervention 1 goal intervention scheduled/documented in this visit SN : Knowledge Deficit 09/09/2019 Related to UTI Disciplines: [facility] Active 1 goal linked to scheduled/documented intervention 1 goal intervention scheduled/documented in this visit SN : Knowledge Deficit 09/09/2019 Related to Urinary Incontinence Disciplines: [facility] Active 1 goal linked to scheduled/documented intervention 1 goal intervention scheduled/documented in this visit Shared: Advance 09/09/2019 Directives Disciplines: [facility], SHARED Active 1 goal linked to scheduled/documented intervention 1 goal intervention scheduled/documented in this visit Shared: Diabetes: 09/09/2019 Knowledge Deficit Related to Diabetic Foot Care Disciplines: [facility], Physical Therapy, Occupational Therapy, SHARED Active 1 goal linked to scheduled/documented intervention 1 goal intervention scheduled/documented in this visit Shared: Medication Management 09/09/2019 Management and Disciplines: Education [facility], Physical of All Therapy, Occupational Home Therapy, SHARED Medication s Including Prescripti on and OTC. Active 1 goal linked to scheduled/documented intervention 1 goal intervention scheduled/documented in this visit Shared: Pain Management 09/09/2019 Disciplines: [facility], Physical Therapy, Occupational Therapy, SHARED Active 1 goal linked to scheduled/documented intervention 1 goal intervention scheduled/documented in this visit Shared: Patient Strength, 09/09/2019 Goals and Care Preferences Disciplines: [facility], Physical Therapy, Occupational Therapy, SHARED Goal Met? Visit Notes Goal Associated Outcome Problem No KHOI: Care Plan Review and Resumption Communication with patient/physician completed for Resumption of Care No SN DM: Patient/Caregiver SN DM: will [...] Related to episode of care UTI No SN : Patient/Caregiver SN : will provide teach back Knowledge on strategies to Deficit reduce/manage Related to incontinence Urinary Incontinen ce No Shared: Advance Shared: directives obtained, or [...] Visit Notes Intervention Associated Status Problem/Go al Plan of Care communicated to Dr. Sharp on: 09/27/19 (date). KHOI: POC Communication Problem: Completed w/Physician for Resumption Resumption Goal: KHOI: Care Plan Review and Communicat ion with patient/ph ysician completed for HH Resumption of Care KHOI: POC Review for Problem: Completed Resumption Resumption Description: Goal: KHOI: Plan of Care/Care Plan Care Plan reviewed for resumption Review and Communicat ion with patient/ph ysician completed for HH Resumption of Care Instructed patient/caregiver on discharge planning and services to be provided on the plan of care. Patient/Caregiver informed of ordered services with Nursing. Patient to be seen at least 1 time(s) a week for at least 4 weeks. Patient/caregiver in agreement with plan of care. Per Insurance Verification on this date, explained patient is responsible for non-covered supplies during HH episode. Patient/Caregiver verbalized able to teach back fully. KHOI: Plan of Care and Problem: Completed Provision of Supplies Resumption Communicated to Patient Goal: KHOI: for Resumption Care Plan Review and Communicat ion with patient/ph ysician completed for HH Resumption of Care KHOI: Resume Previous HH Problem: Completed Orders Resumption Description: Goal: KHOI: Resume previous HH orders Care Plan dated 09/09/19 Review and Communicat ion with patient/ph ysician completed for HH Resumption of Care Patient instructed on blood sugar monitoring: How to Check Your Blood Sugar (Romulo) and Managing Your Diabetes (Romulo). Patient response to teaching: teach back provided, but additional instruction needed. SN DM: Instruct on Blood Problem: Completed Sugar Monitoring SN DM: Knowledge Deficit Related to Diabetes Goal: SN DM: Patient/Ca regiver will provide return demonstrat ion on use of glucometer Patient instructed on complications of diabetes mellitus: Jail Complications of Diabetes (Romulo). Patient response to teaching: teach back provided, but additional instruction needed. SN DM: Instruct Problem: Completed Patient/Caregiver on SN DM: Complications of Diabetes Knowledge Deficit Related to Diabetes Goal: SN DM: Patient/Ca regiver will provide teach back of complicati ons of DM Patient instructed in: Strategies to prevent urinary tract infection: drink plenty of fluids, complete bladder emptying, good hygiene. Patient response to teaching: teach back provided, but additional instruction needed. SN : Assess and Problem: Completed Instruct in SN : Signs/Symptoms of UTI Knowledge Deficit Related to UTI Goal: SN : Patient/Ca regiver will verbalize methods of UTI prevention and S/S of UTI by the end of the episode of care SN assessed and instructed patient/caregiver on Kegel Exercises (Romulo). Patient/Caregiver response to teaching: teach back provided, but additional instruction needed. SN : Assess and Problem: Completed Instruct on Incontinence SN : Knowledge Deficit Related to Urinary Incontinen ce Goal: SN : Patient/Ca regiver will provide teach back on strategies to reduce/man age incontinen ce Advance Directives should be requested up to 3 times. Once these are either obtained or requested 3 times, this problem/intervention can be resolved. Also resolve it patient does not have advance directives or refuses/reports inability to give to agency. Advance Directives status: obtained. Shared: Advance Problem: Completed Directives Shared: Requested/Obtained Advance Description: Directives Patient has Health Care Goal: Directive yes Shared: Durable Power of Trauma Registrar Advance (DPOA), Health Care Power directives of Trauma Registrar (HCPOA) and obtained, Living Will or if [...] teach back diabetic foot care Reviewed/instructed on hycosamine. Shared: Medication Problem: Completed Regimen Review Including [...] getting Preference short of breath, go to [facility], visit family, Goal: cook own meals and bathe Shared: and dress without Patient/Ca assistance. regiver will progress towards goals and achieve them documented in this encounter Home Health Visit - Actions and Narratives Your Diagnosis Codes have been entered. Please review for proper dx and sequencing. Enter Symptom Management Ratings for Di agnosis in M1021 / M1023. Review [place] for completeness. To acknowledge/agree to these changes, first do a patient level sync to get the coding updates. Then, open your assessment in an addend um. Go to Coding Review form. Review the coded diagnoses, then review and edit symptom control ra tings as indicated. Please note your acceptance of Coding in the Additional Narrative section of the chart. For modifications to the coding, please send request in a Staff message to the Quality Partner with your concerns. Coding reviewed and approved, thanks - Aury Louis RN documented in this encounter
--- OUTSIDE RECORDS SUMMARY | 2019-11-28 22:14 | XMS REPORT | Encounter Summary ---
Author Author [facility] Organization [facility] Address Unknown Phone Unavailable Care Team Providers Care Counter Sales Person Name Role Phone Ebony Sharp MD PCP Reason for Visit * HH Auth Cert Referred By Contact Referred To Contact Status Reason Specialty Diagnoses / Procedures Encounter Details Care Team Description Date Type Department Sherley Dixon TELEPHONE ENCOUNTER 09/26/2019 Home Care Visit [facility] Home Care and [facility] [address] [facility] [address] [place] [phone] Social History Date Tobacco Use Types Packs/Day [...] Description Date [place] [address] [place] [address] [phone] 02/29/2020 Office Visit Urology documented as of this encounter Visit Diagnoses Not on filedocumented in this encounter Home Health Visit - Care Plan Visit Type - Telephone Encounter Discipline - SHARED Status Goals Interventions Problem Descriptio Start Date n Active 1 goal linked to scheduled/documented intervention 1 goal intervention scheduled/documented in this visit Shared: Advance 09/09/2019 Directives Disciplines: [facility], SHARED Active 1 goal linked to scheduled/documented intervention 1 goal intervention scheduled/documented in this visit Shared: Diabetes: 09/09/2019 Knowledge Deficit Related to Diabetic Foot Care Disciplines: [facility], Physical Therapy, Occupational Therapy, SHARED Active 1 goal linked to scheduled/documented intervention 1 goal intervention scheduled/documented in this visit Shared: Medication Management 09/09/2019 Management and Disciplines: Education [facility], Physical of All Therapy, Occupational Home Therapy, SHARED Medication s Including Prescripti on and OTC. Active 1 goal linked to scheduled/documented intervention 1 goal intervention scheduled/documented in this visit Shared: Pain Management 09/09/2019 Disciplines: [facility], Physical Therapy, Occupational Therapy, SHARED Active 1 goal linked to scheduled/documented intervention 1 goal intervention scheduled/documented in this visit Shared: Patient Strength, 09/09/2019 Goals and Care Preferences Disciplines: [facility], Physical Therapy, Occupational Therapy, SHARED Goal Met? [...] Goal: Directive yes Shared: Durable Power of Building Consultant Advance (DPOA), Health Care Power directives of Building Consultant (HCPOA) and obtained, Living Will or if [...] getting Preference short of breath, go to [facility], visit family, Goal: cook own meals and bathe Shared: and dress without Patient/Ca assistance. regiver will progress towards goals and achieve them documented in this encounter
--- OUTSIDE RECORDS SUMMARY | 2019-11-28 22:14 | XMS REPORT | Encounter Summary ---
Author Author [facility] Organization [facility] Address Unknown Phone Unavailable Care Team Providers Care Cork Pressing Machine Operator Name Role Phone Ebony Sharp MD PCP Reason for Visit * Reason Comments Follow-up Hospital & orders Encounter Details Care Team Description Date Type Department Ebony Sharp MD [address] [facility] [address] [place] [address] Type 2 diabetes mellitus with hyperglyce prasanna, 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) (Primary Dx); Mixed hyperlipidemia; Hypertension, unspecified type 10/03/2019 Office Visit [facility] (walk-in clinic) [address] [facility] [address] [place] [address] Social History Date Tobacco Use Types Packs/Day [...] Signs Reading Time Taken Comments Vital Sign 100/60 10/03/2019 4:48 PM REPRODUCTIVE HEALTHCARE ASSISTANT Blood Pressure 65 10/03/2019 4:48 PM REPRODUCTIVE HEALTHCARE ASSISTANT Pulse - - Temperature - - Respiratory Rate 93% 10/03/2019 4:48 PM REPRODUCTIVE HEALTHCARE ASSISTANT Oxygen Saturation - - Inhaled Oxygen Concentration 96.4 kg (212 lb 9.6 oz) 10/03/2019 4:48 PM REPRODUCTIVE HEALTHCARE ASSISTANT Weight 157.5 cm (5' 2") 10/03/2019 4:48 PM REPRODUCTIVE HEALTHCARE ASSISTANT Height 38.89 10/03/2019 4:48 PM REPRODUCTIVE HEALTHCARE ASSISTANT Body Mass Index documented in this encounter Progress Notes * Ebony Sharp MD - 10/03/2019 4:10 PM REPRODUCTIVE HEALTHCARE ASSISTANT CC: Follow-up (Hospital & orders) HPI : Caren Patten is a 69 y.o. female who presents with complaints of Follow-up (Hospital & orders) Hospital FU -- Patient recently hospitalized for kidney stone on the left. Her diabetes is com pletely uncontrolled, which complicated things. She had a UTI, COPD exac, respi ratory failure, confusion, and elevated LFTs while hospitalized and ultimately h ad to spend some time in the ICU. After discharge, she had to go back to the ER once but is now doing fine and feeling back to normal. Biggest concern at this point is her diabetes follow up. Her a1c was 12.4 while hospitalized. She has realized after all fo this that she needs to really take her health seriously and work on her diabetes. SHe has some stress related to her daughter, who is currently hospitalized with bleeding ulcers (complications related to bariatric surgery). Her daughte ris a lso going througha difficutly breakup and she has required a restraining order from this man in order to keep her safe now. This worries Caren a lot. Medicare Annual Wellness: Patient Care Team: Ebony Sharp MD as PCP - General (Internal Medicine) Ebony Sharp MD as PCP - [facility] CECILIO Joaquin MA as Bleach Range Operator Melva Stephenson RN as Clinical Lumber Bearer (Home Health Services) The patients demographics, including age, gender, race, and ethnicity, was revie wed to help assess the individual risks and health needs: : Yes Patients care team has been reviewed and updated in Epic:: Yes The patients active problem list, past medical, family history and social histor y were reviewed and updated in the chart: : Yes The patient should return for a wellness visit annually to revisit health status and risk factors. Health maintenance reviewed in chart for previous screening s ervices and dates. Recommended screening schedule provided on After Visit Summar y.: Yes Fall Risk:: Low Fall Risk Which of the following best describes your ability to hear?: Normal Do you wear a hearing aid?: No During the last 12 months, have you experienced confusion or memory loss?: No If the patient indicated Yes, without help to all ADL questions, select Yes here . Otherwise complete each question below.: Yes Overall Health: Fair Frailty: Neutral Do you wear a seatbelt?: Yes Does your home have working smoke detectors?: Yes Have you fallen within the past 3 months?: (!) Yes Do you feel unsteady when rising from sitting to standing or while walking?: No Do you have handrails in the bathroom?: Yes Do you have concerns regarding sexually transmitted infections?: No Do you leak urine?: (!) Yes 1) In the last two weeks, have you felt down, depressed, or hopeless?: (!) 2 2) In the last two weeks, have you felt little interest or pleasure in doing thi ngs?: (!) 2 I am satisfied with life overall:: Yes I feel stressed regularly:: No I experience anger regularly:: No I feel lonely regularly:: No I regularly experience physical pain:: No I usually feel fatigued:: No Has your food intake declined over the past 3 months due to loss of appetite, di gestive problems, chewing or swallowing difficulties?: (!) Yes Have you had unintentional weight loss during the past 3 months?: No Describe your current diet:: Low Salt;Low Sugar Do you use dental floss?: (!) No Do you visit the dentist regularly?: (!) No Do you wear dentures?: No How many times a day do you brush your teeth: : 1 Type of Exercise: Walking How many times per week do you exercise?: 4 How many minutes do you exercise per session?: 30 Weekly Exercise (Minutes/Week): 120 James the intensity of your exercise:: Moderate Advance Directive?: Yes PHQ-9: Over the last 2 weeks, how often have you been bothered by any of the following problems? Little Interest or Pleasure in Doing Things: 2 Feeling Down, Depressed, or Hopeless: 3 Trouble falling or staying asleep, or sleeping too much: 2 Feeling tired or having little energy: 3 Poor appetite or overeatin Feeling bad about yourself - or that you are a failure or have let yourself or y our family down: 0 Trouble concentrating on things, such as reading the newspaper or watching telev ision: 2 Moving or speaking so slowly that other people could have noticed. Or the opposi te - being so fidgety or restless that you have been moving around a lot more th an usual: 1 Thoughts that you would be better off , or of hurting yourself in some way: 0 PHQ-9 Total Score: 14 If you checked off any problems, how difficult have these problems made it for y ou to do your work, take care of things at home, or get along with other people? : Somewhat difficult ALLERGIES: Allergies Allergen Reactions Lisinopril Anaphylaxis Metformin Anaphylaxis Angioedema Sulfa (Sulfonamide Antibiotics) Hives and Itching Latex, Natural Rubber Hives Reaction from oxygen nasal cannula CURRENT MEDICATIONS: Current Outpatient Medications Medication Sig Dispense Refill albuterol (PROAIR/PROVENTIL/VENTOLIN) 90 mcg/actuation HFA inhaler Inhale 2 puffs every 6 (six) hours as needed for wheezing. 1 Inhaler 0 amitriptyline (ELAVIL) 25 MG tablet Take 1 tablet (25 mg total) by mouth nig htly. 90 tablet 1 atorvastatin (LIPITOR) 40 MG tablet Take 1 tablet (40 mg total) by mouth jcarlos ly. (Patient taking differently: Take 40 mg by mouth nightly. ) 90 tablet 1 BREO ELLIPTA 200-25 mcg/dose INHALER INHALE 1 PUFF BY MOUTH DAILY 60 each 0 cephalexin (KEFLEX) 500 MG capsule Take 1 capsule (500 mg total) by mouth 3 (three) times a day. 15 capsule 0 citalopram (CELEXA) 20 mg tablet Take 1 tablet (20 mg total) by mouth daily. 90 tablet 1 cyclobenzaprine (FLEXERIL) 10 MG tablet Take 1 tablet (10 mg total) by mouth 3 (three) times a day as needed for muscle spasms. 90 tablet 0 fluconazole (DIFLUCAN) 100 MG tablet Take 1 tablet (100 mg total) by mouth d aily. 5 tablet 0 gabapentin (NEURONTIN) 300 MG capsule TAKE 2 CAPSULES BY MOUTH THREE TIMES D AILY 540 capsule 0 hydroCHLOROthiazide (HYDRODIURIL) 25 MG tablet Take 1 tablet (25 mg total) b y mouth daily. 30 tablet 0 hyoscyamine (LEVSIN/SL) 0.125 mg SL tablet Dissolve 1 tablet (0.125 mg total ) under the tongue every 4 (four) hours as needed. 30 tablet 0 insulin glargine (LANTUS U-100 INSULIN) 100 unit/mL injection Inject 25 Unit s under the skin nightly. 10 mL 0 insulin syringe (BD ULTRA-FINE) 0.3 mL 31 gauge x 5/16 Inject under the skin daily. use as directed 100 each 0 insulin syringe 0.3 mL 31 gauge x 5/16 USE DIRECTED 100 each 1 ipratropium-albuterol (DUO-NEB) 0.5-3 mg/3 mL nebulizer Inhale 3 mL 4 (four) times a day. (Patient taking differently: Inhale 3 mL 4 (four) times a day as n eeded. ) 360 mL 11 metoprolol tartrate (LOPRESSOR) 100 MG tablet TAKE 1 TABLET BY MOUTH TWICE D AILY 180 tablet 0 oxyCODONE-acetaminophen (PERCOCET) 5-325 mg per tablet Take 1 tablet by mout h every 4 (four) hours as needed for pain. Max Daily Dose: 6 tablets 30 tablet 0 OXYGEN THERAPY 2 L/min as needed. tolterodine (DETROL) 2 MG tablet Take 1 tablet (2 mg total) by mouth 2 (two) times a day. 30 tablet 0 traMADol (ULTRAM) 50 mg tablet Take 1 tablet (50 mg total) by mouth every 6 (six) hours as needed for pain. Max Daily Dose: 200 mg 8 tablet 0 vit A/vit C/biotin/zinc/copper (YFVA-DWGE-MSDJ,VIT A,C-BIOTIN, ORAL) Take by mouth daily. HYDROcodone-acetaminophen (NORCO) 5-325 mg per tablet Take 1 tablet by mouth every 6 (six) hours as needed for pain. Max Daily Dose: 4 tablets 10 tablet 0 lactobacillus (CULTURELLE) 10 billion cell capsule Take 2 capsules by mouth daily. 20 capsule 0 phenazopyridine (PYRIDIUM) 200 MG tablet Take 1 tablet (200 mg total) by tanna th 3 (three) times a day as needed for pain. 9 tablet 0 SITagliptin (JANUVIA) 50 MG tablet Take 2 tablets (100 mg total) by mouth da edu. 30 tablet 0 No current facility-administered medications for this visit. LAB SUMMARY: Lab Results Component Value Date WBC 8.76 10/01/2019 HGB 13.1 10/01/2019 HCT 40 10/01/2019 PLT 177 10/01/2019 CHOL 244 (H) 04/07/2018 TRIG 142 04/07/2018 HDL 59 04/07/2018 ALT 40 (H) 10/01/2019 AST 41 10/01/2019 NA 135 10/01/2019 K 3.3 (L) 10/01/2019 CL 98 10/01/2019 BUN 16 10/01/2019 CO2 31 10/01/2019 TSH 0.37 (L) 09/21/2019 INR 1.0 08/29/2017 HGBA1C 12.4 (H) 09/21/2019 MICROALBUR 12.10 09/12/2018 SOCIAL HISTORY: Social History Socioeconomic History Marital status: Spouse name: None Number of children: None Years of education: None Highest education level: None Occupational History 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 Social Needs Financial resource strain: None Food insecurity Worry: None Inability: None Transportation needs Medical: None Non-medical: None Tobacco Use Smoking status: Former Smoker Packs/day: 0.33 Years: 20.00 Pack years: 6.60 Types: Cigarettes Start date: 1990 Last attempt to quit: 04/2011 Years since quittin.4 Smokeless tobacco: Never Used Tobacco comment: quit 7 years ago Substance and Sexual Activity Alcohol use: Yes Comment: rarely Drug use: No Sexual activity: Never Lifestyle Physical activity Days per week: None Minutes per session: None Stress: None Relationships Social connections Talks on phone: None Gets together: None Attends baptist service: None Active member of club or organization: None Attends meetings of clubs or organizations: None Relationship status: None Intimate partner violence Fear of current or ex partner: None Emotionally abused: None Physically abused: None Forced sexual activity: None Other Topics Concern None Social History Narrative Ms. Patten has one daughter, whom she lives with. She does not have an advanced directive. Medical surrogate decision maker is her daughter, Frank Garcia Code status: Full HEALTH MAINTENANCE: Health Maintenance Topic Date Due Spirometry # 1950 Diabetes Mellitus Ophthalmology Exam 1950 Diabetes Mellitus Foot Exam 1962 Mammogram Screening 01/06/2012 Pneumococcal Vaccine: 65+ Years (1 of 2 - PCV13) 2017 Lipid Screening 04/07/2019 Diabetes Mellitus Urine Microalbumin 09/12/2019 Influenza Vaccine (1) 09/30/2020 (Originally 06/23/2019) Zoster Vaccine# (1 of 2) 11/29/2020 (Originally 2002) Medicare Annual Wellness 12/13/2019 Colorectal Screening via Colonoscopy 12/24/2019 Diabetes Mellitus Hemoglobin A1C 03/21/2020 Fall Risk Assessment # 10/01/2020 Osteoporosis Screening 09/12/2023 Hepatitis C Screen Completed Td # Discontinued Immunization History Administered Date(s) Administered Influenza QIV (IM) 06/18/2014, 05/09/2016, 07/09/2017 Influenza Virus Vaccine, Split Virus (Incl. Purified Surface Antigen)-retire d Code 07/06/2013 Influenza, Seasonal, Injectable 06/08/2012 Pneumococcal Polysaccharide 23-Valent 05/09/2016 Seasonal Trivalent Influenza Vaccine, Adjuvanted, Preservative Free 07/23/20 18 Review of Systems Constitutional: Negative. Respiratory: Negative. Cardiovascular: Negative. Gastrointestinal: Negative. Musculoskeletal: Negative. Psychiatric/Behavioral: Negative. OBJECTIVE Vitals: 10/03/19 1648 BP: 100/60 BP Location: Left arm Patient position: Sitting Cuff size: X-Large Pulse: 65 SpO2: 93% Weight: 96.4 kg (212 lb 9.6 oz) Height: 1.575 m (5' 2") Estimated body mass index is 38.89 kg/m as calculated from the following: Height as of this encounter: 1.575 m (5' 2"). Weight as of this encounter: 96.4 kg (212 lb 9.6 oz). Physical Exam Vitals signs and nursing note reviewed. Constitutional: Appearance: She is well-developed. HENT: Head: Normocephalic and atraumatic. Cardiovascular: Rate and Rhythm: Normal rate and regular rhythm. Heart sounds: Normal heart sounds. Pulmonary: Effort: Pulmonary effort is normal. Breath sounds: Normal breath sounds. Skin: General: Skin is warm and dry. Neurological: Mental Status: She is alert. Sensory: No sensory deficit. Psychiatric: Behavior: Behavior normal. ASSESSMENT/PLAN: Caren was seen today for follow-up. Diagnoses and all orders for this visit: Type 2 diabetes mellitus with hyperglycemia, with long-term current use of insul in (HCC) - Comprehensive Metabolic Panel; Future - Hemoglobin A1C; Future - Microalbumin Random; Future Mixed hyperlipidemia - Comprehensive Metabolic Panel; Future - Lipid Panel; Future Hypertension, unspecified type Ebony Sharp MD ODUCTIVE HEALTHCARE ASSISTANT documented in this encounter Plan of Treatment Care Team Description Date [place] [id number] [place] [id number] [phone] 02/29/2020 Office Visit Urology Order Schedule Name Type Priority Associated Diag noses 1 Occurrences starting 10/03/2019 until 10/03/2020 Comprehensive Metabolic Lab Routine Type 2 diabetes mellitus Panel with hyperglycemia, 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) Mixed hyperlipidemia 1 Occurrences starting 10/03/2019 until 10/03/2020 Hemoglobin A1C Lab Routine Type 2 diabetes mellitus with hyperglycemia, 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) 1 Occurrences starting 10/03/2019 until 10/03/2020 Lipid Panel Lab Routine Mixed hyperlipi demia 1 Occurrences starting 10/03/2019 until 10/02/2020 Microalbumin Random Lab Routine Type 2 bela betes mellitus with hyperglycemia, 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) documented as of this encounter Visit Diagnoses Diagnosis Type 2 diabetes mellitus with hyperglyc emia, 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) Mixed hyperlipidemia Hypertension, unspecified type documented in this encounter
--- OUTSIDE RECORDS SUMMARY | 2019-11-28 22:14 | XMS REPORT | Encounter Summary ---
Author Author [facility] Organization [facility] Address Unknown Phone Unavailable Care Team Providers Care Assistant Clinical Director Name Role Phone Ebony Sharp MD PCP Reason for Visit * Reason Comments Flank Pain DOCTOR REMOVED THE STENT FR GUAMAN AND TOLD HER IF SHE HAD MORE INTLERABLE PAIN TO RETURN TO ER. Encounter Details Care Team Description Date Type Department Celso Palma, DO [address] [place] [address] [phone] Flank pain (Primary Dx) 10/01/2019 Emergency [facility] [address] [place] [address] Social History Date Tobacco Use Types Packs/Day [...] Signs Reading Time Taken Comments Vital Sign 111/59 10/01/2019 5:31 PM SALES AND SERVICE ADVISOR Blood Pressure 67 10/01/2019 12:17 PM SALES AND SERVICE ADVISOR Pulse 36.6 C (97.8 F) 10/01/2019 12:17 PM SALES AND SERVICE ADVISOR Temperature 16 10/01/2019 12:17 PM SALES AND SERVICE ADVISOR Respiratory Rate 95% 10/01/2019 5:31 PM SALES AND SERVICE ADVISOR Oxygen Saturation - - Inhaled Oxygen Concentration - - Weight - - Height - - Body Mass Index documented in this encounter Discharge Instructions * Attachments The following attachments cannot be sent through Care Everywhere.* FLANK PAIN, UNCERTAIN CAUSE (TURKISH) documented in this encounter Medications at Time [...] A/vit Take by mouth 0 C/biotin/zinc/copper daily. ([id number],VIT A,C-BIOTIN, ORAL) 08/25/2019 10/13/2019 BREO ELLIPTA 200-25 INHALE 1 PUFF 60 each 0 mcg/dose BY MOUTH INHALERIndications: DAILY Chronic obstructive pulmonary disease, unspecified COPD type (HCC) 06/17/2019 10/27/2019 cyclobenzaprine Take 1 tablet 90 [...] as of this encounter ED Notes * Arjun Jurado RN - 10/01/2019 6:07 PM SALES AND SERVICE ADVISOR Per provider ok for DC S AND SERVICE ADVISOR * Celso Palma, DO - 10/01/2019 2:16 PM SALES AND SERVICE ADVISOR 10/01/2019 [facility] History Chief Complaint Patient presents with Flank Pain DOCTOR REMOVED THE STENT WEDNESDAY AND TOLD HER IF SHE HAD MORE INTLERABLE PAIN T O RETURN TO ER. 69-year-old female presents with persistent right flank pain. Patient had a ure teral stent removed by Dr. Hendricks last week. However she states the pain is stil l been unbearable. She was given tramadol by the urologist but states it has no t been working. The history is provided by the patient. Flank Pain Location: Generalized Quality: Aching Radiates to: Does not radiate Pain severity: Moderate Pain is: Same all the time Timing: Constant Progression: Unchanged Chronicity: New Context: not recent injury Relieved by: Nothing Worsened by: Nothing Ineffective treatments: None tried Associated symptoms: no bladder incontinence, no bowel incontinence, no leg pain and no perianal numbness Risk factors: no steroid use Past Medical History: Diagnosis Date Acute bleeding 08/08/2016 Allergic rhinitis Anxiety Bronchitis, chronic ([facility]) Cataract 2011, 2012 bilat cateract surgery Chronic pain disorder back, ribs, and ankle. COPD (chronic obstructive pulmonary disease) ([facility]) Depression Draining postoperative wound 08/08/2016 Endometriosis Essential hypertension Fractures [address] in Left ankle MATA (generalized anxiety disorder) 09/24/2015 Hernia of abdominal cavity Kidney stone Mixed hyperlipidemia 09/24/2015 Morbid obesity due to excess calories ([facility]) 07/10/2016 On home oxygen therapy 2L - usually needs if has an exerbation of COPD, or resp illness SASHA on CPAP Osteoarthritis Refusal of blood transfusions as patient is Mu-ism Sleep apnea CPAP use Type 2 diabetes mellitus with hyperglycemia, with long-term current use of i nsulin ([facility]) 06/29/2016 Urinary calculi Urinary incontinence Urinary tract [...] AND LEFT URETERAL STENT PLACEMENT; Surgeon: Darin Hendricks MD; Location: [facility] Main OR; Service: Urology; Laterality: Left; CYSTOSCOPY, RETROGRADE PYELOGRAM, URETEROSCOPY, LASERLITHOTRIPSY, WITH URETE RAL STENT PLACEMENT Left 08/02/2019 Procedure: CYSTOSCOPY, LEFT RETROGRADE PYELOGRAM, LEFT URETEROSCOPY, LASER LITH OTRIPSY, LEFT URETERAL STENT EXCHANGE; Surgeon: Darin Hendricks MD; Location: [facility] Main OR; Service: Urology; Laterality: Left; CYSTOSCOPY, RETROGRADE PYELOGRAM, URETEROSCOPY, LASERLITHOTRIPSY, WITH URETE RAL STENT PLACEMENT Left 09/21/2019 Procedure: CYSTOSCOPY, LEFT RETROGRADE PYELOGRAM, LEFT URETEROSCOPY, LEFT HOLMI UM LASER LITHOTRIPSY WITH BASKET EXTRACTION OF STONE, AND LEFT URETERAL STENT PL ACEMENT; Surgeon: Janet Aragon MD; Location: [facility] Main OR; Service: Ur ology; Laterality: Left; CYSTOSCOPY, RETROGRADE PYELOGRAM, W/URETERAL STENT PLACEMENT Left 08/30/2019 Procedure: CYSTOSCOPY, LEFT RETROGRADE PYELOGRAM, AND LEFT URETERAL STENT INSER TION; Surgeon: Janet Aragon MD; Location: [facility] Main OR; Service: Urolo gy; Laterality: Left; HAND SURGERY Left 03/09/2019 CTR HERNIA REPAIR HYSTERECTOMY KIDNEY STONE SURGERY OOPHORECTOMY REMOVAL, HARDWARE, FOOT OR ANKLE Left 04/09/2017 Procedure: LEFT ANKLE REMOVAL OF HARDWARE WITH REVISION LEFT ANKLE ARTHRODESIS; Surgeon: Adelaida Olivas MD; Location: [facility] Main OR; Service: Orthopedics; Later ality: Left; REMOVAL, STENT, URETER, CYSTOSCOPIC Left 09/21/2019 Procedure: CYSTOSCOPY, LEFT URETERAL STENT REMOVAL; Surgeon: Janet valdes MD; Location: [facility] Main OR; Service: Urology; Laterality: Left; REPAIR, INCISIONAL HERNIA, LAPAROSCOPIC, USING MESH N/A 05/25/2018 Procedure: LAPAROSCOPIC INCISIONAL HERNIA REPAIR WITH MESH; Surgeon: Medardo Tate MD; Location: [facility] Main OR; Service: General; Laterality: N/A; TONSILLECTOMY [...] rarely Drug use: No Review of Systems Gastrointestinal: Negative for bowel incontinence. Genitourinary: Positive for flank pain. Negative for bladder incontinence. All other systems reviewed and are negative. Physical Exam BP 116/66 | Pulse 67 | Temp 97.8 F (36.6 C) (Oral) | Resp 16 | SpO2 96% Physical Exam Vitals signs and nursing note reviewed. Constitutional: General: She is in acute distress (appears in pain). Appearance: She is well-developed. She is not diaphoretic. HENT: Head: Normocephalic and atraumatic. Eyes: Conjunctiva/sclera: Conjunctivae normal. Pupils: Pupils are equal, round, and reactive to light. Neck: Musculoskeletal: Normal range of motion and neck supple. Vascular: No JVD. Trachea: No tracheal deviation. Cardiovascular: Rate and Rhythm: Normal rate and regular rhythm. Heart sounds: Normal heart sounds. No murmur. No friction rub. No gallop. Pulmonary: Effort: Pulmonary effort is normal. No respiratory distress. Breath sounds: Normal breath sounds. No stridor. Abdominal: General: Bowel sounds are normal. There is no distension. Palpations: Abdomen is soft. Tenderness: There is tenderness. There is right CVA tenderness. Musculoskeletal: General: No tenderness. Skin: General: Skin is warm and dry. Findings: No erythema or rash. Neurological: Mental Status: She is alert and oriented to person, place, and time. ED Course Procedures Vitals: 10/01/19 1602 10/01/19 1712 BP: 116/66 Pulse: Resp: Temp: SpO2: 97% 96% O2 saturation O2 saturation is 94 % On Room Air . Interpretation: normal 2:20 PM MDM Number of Diagnoses or Management Options Flank pain: new and requires workup Amount and/or Complexity of Data Reviewed Clinical lab tests: reviewed and ordered Tests in the radiology section of CPT: ordered and reviewed Discuss the patient with other providers: yes Risk of Complications, Morbidity, and/or Mortality Presenting problems: moderate Diagnostic procedures: moderate Management options: moderate Patient Progress Patient progress: stable Patient is roughly 750 mL's into her fluid bolus and states she would just like to go home at this time. Repeat lactate before the fluid bolus was started was down to 2.3. Discharge home with Percocet. ED Course as of Oct 01 1753 Sun Oct 01, 2019 1532 Epithelial Cells(!): Large [CARLOS] 1532 Microscopic WBC Urine(!): >40 [CARLOS] 1532 HYALINE CAST(!): Small [CARLOS] 1532 WBC: 8.76 [CARLOS] [address] Leija, he states that proximal inflammation is normal after stent removal. Recommends repeat lactate and if improving d/c home with outpati ent f/u. [CARLOS] ED Course User Index [CARLOS] Celso Palma, DO LABS Results for orders placed or performed during the hospital encounter of 10/01/19 (from the past 24 hour(s)) Urinalysis Reflex Result Value Ref Range Appearance, Urine Yellow Glucose Urine 100 (A) Negative mg/dL Bilirubin Urine Negative Negative Ketones Urine Negative Negative mg/dL Specific [place], UA 1.017 1.001 - 1.030 Hemoglobin Urine Negative Negative PH Urine 6.0 5.0 - 8.0 Protein Urine Qual Trace (A) Negative mg/dL Urobilinogen Urine Negative Negative EU/dL Nitrite Urine Negative Negative Leukocyte Esterase Positive (A) Negative Urinalysis Microscopic Only Result Value Ref Range Microscopic RBC Urine 0-5 0 - 5 /hpf Microscopic WBC Urine >40 (A) 0 - 5 /hpf Epithelial Cells Large (A) Absent Hyaline Cast Small (A) Absent Bacteria Absent Absent CBC and Diff (manual diff if necessary) Result Value Ref Range WBC 8.76 4.00 - 11.00 TH/uL RBC 4.10 4.00 - 5.00 MIL/uL Hemoglobin 13.1 12.0 - 15.0 g/dL Hematocrit 40 36 - 45 % MCV 97 80 - 99 fL MCH 32 27 - 34 pg MCHC 33 32 - 36 % RDW 13.6 11.5 - 14.5 % Platelet Count 177 140 - 400 TH/uL MPV 10.0 9.4 - 12.3 fL Nucleated RBCs 0 0 - 0 /100 % Neutrophils 57 45 - 78 % %Lymphocytes 33 15 - 47 % %Monocytes 8 0 - 12 % %Eosinophils 2 0 - 7 % %Basophils 1 0 - 2 % % Imm Grans 0 0 - 1 % # Granulocytes 4.95 1.7 - 6.8 TH/uL # Lymphocytes 2.90 1.0 - 3.3 TH/uL # Monocytes 0.69 0.2 - 0.9 TH/uL # Eosinophils 0.14 0.0 - 0.4 TH/uL # Basophils 0.05 0.0 - 0.1 TH/uL Comprehensive Metabolic Panel Result Value Ref Range Sodium 135 133 - 147 MEQ/L Potassium 3.3 (L) 3.5 - 5.3 MEQ/L Chloride 98 96 - 112 MEQ/L Carbon Dioxide 31 20 - 32 MEQ/L Anion Gap 7 5 - 17 Calcium 9.2 8.4 - 10.5 mg/dL Glucose 203 (H) 70 - 100 mg/dL Protein Total Serum 7.6 6.0 - 8.2 g/dL Albumin 4.0 3.5 - 5.0 g/dL Alkaline Phosphatase 101 42 - 140 IU/L Alanine Aminotransferase 40 (H) 0 - 34 IU/L Aspartate Aminotransferase 41 15 - 46 IU/L Bilirubin Total 0.5 0.2 - 1.3 mg/dL Blood Urea Nitrogen 16 7 - 26 mg/dL Creatinine 0.8 0.4 - 1.1 mg/dL eGFR Female AA 86 60 - 200 mL/min/1.73sq m eGFR Female Non-AA 72 60 - 200 mL/min/1.73sq m Lipase Result Value Ref Range Lipase 105 23 - 300 IU/L Lactate Venous WB Result Value Ref Range Lactate Venous 3.1 (H) 0.0 - 2.0 mmol/L Lactate Venous WB Result Value Ref Range Lactate Venous 2.3 (H) 0.0 - 2.0 mmol/L RADIOLOGY CT Abdomen Pelvis wo contrast Final Result 1. Interval removal of the left nephroureteral stent. Mild residual proximal hydroureteronephrosis, with mild inflammatory stranding involving the left proximal ureter. No radiopaque stones. 2. Redemonstrated urethral diverticulum, with multiple small stones. ATTESTATION STATEMENT: The Staff Radiologist has personally reviewed the images and dictated, reviewed, or edited the final report. READING SITE: [facility] DIAGNOSIS Problem List Items Addressed This Visit None Visit Diagnoses Flank pain - Primary FOLLOW UP Ebony Sharp MD [address] [facility] [address] [place] [address] Call in 2 days Follow [place] [address] [facility] [address] Call in 2 days Follow up without fail Discussed with the patient./family/guardian the plan and all questioned fully an swered. Return precautions instructed. Discussed no driving, operating machinery, or other activity that requires non a ltered state of mind while on narcotics/benzodiazepines/other mind altering pres criptions. Patient/family/guardian expressed understanding and will not engage in activities that require concentration while on these medications. ED Clinical Impression 1. Flank pain Patient ED Dispo ED Disposition Discharge Celso Palma DO 10/01/19 4594 S AND SERVICE ADVISOR documented in this encounter Plan of Treatment Care Team Description Date [place] [address] [facility], [place] [id number] 02/29/2020 Office Visit Urology documented as of this encounter Procedures Comments Procedure Name Priority Date/Time Associated Diag nosis LACTATE VENOUS WB Timed 10/01/2019 3:48 PM SALES AND SERVICE ADVISOR CT ABDOMEN PELVIS WO STAT 10/01/2019 CONTRAST 1:56 PM SALES AND SERVICE ADVISOR LIPASE STAT 10/01/2019 1:36 PM SALES AND SERVICE ADVISOR LACTATE VENOUS WB STAT 10/01/2019 1:36 PM SALES AND SERVICE ADVISOR COMPREHENSIVE METABOLIC STAT 10/01/2019 PANEL 1:36 PM SALES AND SERVICE ADVISOR CBC AND DIFF (MANUAL DIFF STAT 10/01/2019 IF NECESSARY) 1:36 PM SALES AND SERVICE ADVISOR URINALYSIS MICROSCOPIC STAT 10/01/2019 ONLY 12:24 PM SALES AND SERVICE ADVISOR URINALYSIS REFLEX STAT 10/01/2019 12:24 PM SALES AND SERVICE ADVISOR CULTURE, URINE STAT 10/01/2019 12:24 PM SALES AND SERVICE ADVISOR documented in this encounter Results * Lactate Venous WB (10/01/2019 3:48 PM SALES AND SERVICE ADVISOR) Only the most recent of 2 results within the time period is included. Lactate Venous 2.3 (H) 0.0 - 2.0 mmol/L [facility]over [facility] [place] [facility] Specimen Blood Narrative Performed At Reflex sepsis screen >2.0 [facility] CEDRIC [facility]BIN[employer] [facility] Performing Organization Address City/State/Zipcode Ph one Number [facility] [address] [place] [address] [facility] [address] [place] [address] [place] [facility] [address] [place] [address], [place] [phone] [facility] * CT Abdomen Pelvis wo contrast (10/01/2019 1:56 PM SALES AND SERVICE ADVISOR) Specimen Impressions Performed At 1. Interval removal of the left nephroureteral stent. Mild residual ABIKESSON proximal hydroureteronephrosis, with mi ld inflammatory stranding involving the left proximal ureter. No radiopaque stones. 2. Redemonstrated urethral diverticulum , with multiple small stones. ATTESTATION STATEMENT: The Staff Radiologist has personally re viewed the images and dictated, reviewed, or edited the final report. READING SITE: [facility] Narrative Performed At Patient: ISIAH BENÍTEZ Sex#: F #: [id number] #: [id number] Location: [facility] ED -28 Procedure Requested: [id number] CT ABDOM EN PELVIS WO CONTRAST Reason for Exam: flankl pain Exam Ordered: 10/01/2019 124 6 Exam Date/Time: 10/01/2019 1356 Begin exam date/time: 10/01/[address] ABDOMEN PELVIS WO CONTRAST INDICATION: Flank pain. History of neph rolithiasis and left ureteral stent EXAM: Noncontrast CT of the abdomen and pelvis. Coronal and sagittal reformatted images were performed. COMPARISON: Multiple CTs of the abdomen and pelvis, most recent 09/17/2019. Abdominal radiograph 0. FINDINGS: Lower chest: No consolidation within th e visualized lung. Normal cardiac size. No pleural or pericardial effusio n. Mild coronary atherosclerosis. ABDOMEN: No free air, free fluid, or fluid colle ction. Liver: Stable hepatomegaly. Tiny calcif ied hepatic granulomas, otherwise the noncontrast liver is homogeneous in attenuation. Gallbladder and biliary: Cholecystectom y. No biliary dilatation. Spleen: Calcified splenic granulomas. Pancreas: The noncontrast pancreas is h omogeneous in attenuation without peripancreatic inflammatory changes. Adrenal glands: Normal adrenal glands. Kidneys and ureters: Stable right infer ior pole simple cyst. No right-sided hydronephrosis. Interval re moval of left ureteral stent. There is mild residual proximal hydrour eteronephrosis. No radiographic opaque urinary calculi are identified. Mild inflammatory stranding surrounding the left proximal ureter. GI tract: The stomach is decompressed a nd poorly evaluated. Normal caliber small bowel and colon. Normal a ppendix. Vascular structures: Normal caliber abd ominal aorta. Minimal scattered abdominal aortic atherosclerosis. Lymph nodes: No lymphadenopathy in the abdomen or pelvis. PELVIS: Genitourinary system: Partially distend ed bladder, with tiny foci of air anteriorly (series 2 image 73), likely related to recent surgical instrumentation. Redemonstrated urethra l diverticulum, with multiple small stones. Hysterectomy. SKELETAL STRUCTURES AND SOFT TISSUES: N o fracture or destructive lesion in the visualized skeleton. Multilevel thoracolumbar spondylosis, with grade 1 anterolisthesis at L3-4 and L4- 5. Scattered areas of inflammatory stranding in the anterior abdominal wall subcutaneous fat, likely sequela of subcutaneous injectio ns. Procedure Note Interface, Rad Results In - 10/01/2019 2:52 PM SALES AND SERVICE ADVISOR Patient: ISIAH BENÍTEZ Sex#: Paulina #: [id number] Jose#: [id number] Location: [facility] ED SED-28 Procedure Requested: [id number] CT ABDOMEN PELVIS WO CONTRAST Reason for Exam: flankl pain Exam Ordered: 10/01/2019 1246 Exam Date/Time: 10/01/2019 1356 Begin exam date/time: 10/01/[address] ABDOMEN PELVIS WO CONTRAST INDICATION: Flank pain. History of nephrolithiasis and left ureteral stent EXAM: Noncontrast CT of the abdomen and pelvis. Coronal and sagittal reformatted images were performed. COMPARISON: Multiple CTs of the abdomen and pelvis, most recent 09/17/2019. Abdominal radiograph 09/29/2019 . FINDINGS: Lower chest: No consolidation within the visualized lung. Normal cardiac size. No pleural or pericardial effusion. Mild coronary atherosclerosis. ABDOMEN: No free air, free fluid, or fluid collection. Liver: Stable hepatomegaly. Tiny calcified hepatic granulomas, otherwise the noncontrast liver is homogeneous in attenuation. Gallbladder and biliary: Cholecystectomy. No biliary dilatation. Spleen: Calcified splenic granulomas. Pancreas: The noncontrast pancreas is homogeneous in attenuation without peripancreatic inflammatory changes. Adrenal glands: Normal adrenal glands. Kidneys and ureters: Stable right inferior pole simple cyst. No right-sided hydronephrosis. Interval removal of left ureteral stent. There is mild residual proximal hydroureteronephrosis. No radiographic opaque urinary calculi are identified. Mild inflammatory stranding surrounding the left proximal ureter. GI tract: The stomach is decompressed and poorly evaluated. Normal caliber small bowel and colon. Normal appendix. Vascular structures: Normal caliber abdominal aorta. Minimal scattered abdominal aortic atherosclerosis. Lymph nodes: No lymphadenopathy in the abdomen or pelvis. PELVIS: Genitourinary system: Partially distended bladder, with tiny foci of air anteriorly (series 2 image 73), likely related to recent surgical instrumentation. Redemonstrated urethral diverticulum, with multiple small stones. Hysterectomy. SKELETAL STRUCTURES AND SOFT TISSUES: No fracture or destructive lesion in the visualized skeleton. Multilevel thoracolumbar spondylosis, with grade 1 anterolisthesis at L3-4 and L4-5. Scattered areas of inflammatory stranding in the anterior abdominal wall subcutaneous fat, likely sequela of subcutaneous injections. IMPRESSION 1. Interval removal of the left nephrour eteral stent. Mild residual proximal hydroureteronephrosis, with mild inflammatory stranding involving the left proximal ureter. No radiopaque stones. 2. Redemonstrated urethral diverticulum, with multiple small stones. ATTESTATION STATEMENT: The Staff Radiologist has personally reviewed the images and dictated, reviewed, or edited the final report. READING SITE: [facility] Performing Organization Address City/State/[facility] Ph one Number LEVI * Lipase (10/01/2019 1:36 PM SALES AND SERVICE ADVISOR) Lipase 105 23 - 300 IU/L [facility] [place] [facility] Specimen Blood Performing Organization Address City/[facility] Ph one Number [facility] [address] [facility] [place], [place] [id number] [facility] [address] [facility] [place] [address] [facility] [facility] * Comprehensive Metabolic Panel (10/01/2019 1:36 PM SALES AND SERVICE ADVISOR) Sodium 135 133 - 147 MEQ/L [facility] [facility] Potassium 3.3 (L) 3.5 - 5.3 MEQ/L [facility] [facility] Chloride 98 96 - 112 MEQ/L [facility] [facility] Carbon Dioxide 31 20 - 32 MEQ/L [facility] [facility] Anion Gap 7 5 - 17 [facility] [facility] Calcium 9.2 8.4 - 10.5 mg/dL [facility] [facility] Glucose 203 (H) 70 - 100 mg/dL [facility] [facility] Protein Total 7.6 6.0 - 8.2 g/dL [facility] Serum [facility] [facility] Albumin 4.0 3.5 - 5.0 g/dL [facility] [facility] Alkaline 101 42 - 140 IU/L [facility] Phosphatase [facility] [facility] Alanine 40 (H) 0 - 34 IU/L [facility] Aminotransferas [facility] e [place] [facility] Aspartate 41 15 - 46 IU/L [facility] Aminotransferas [facility] [place] [facility] Bilirubin Total 0.5 0.2 - 1.3 mg/dL [facility] [facility] Blood Urea 16 7 - 26 mg/dL [facility] Nitrogen [facility] [place] [facility] Creatinine 0.8 0.4 - 1.1 mg/dL [facility] [place] [facility] eGFR Female AA 86 60 - 200 [facility] mL/min/1.73sq m [facility]anc[facility] [place] [facility] eGFR Female 72 60 - 200 [facility] Non-AA mL/min/1.73sq m [facility] Manc[facility] [place] [facility] Specimen Blood Performing Organization Address City/State/Zipcode Ph one Number [facility] [address] [place] [address] [facility] [address] [facility] [address] [facility] [facility] * CBC and Diff (manual diff if necessary) (10/01/2019 1:36 PM SALES AND SERVICE ADVISOR) WBC 8.76 4.00 - 11.00 TH/uL [facility] Cedric Zazuetas [place] [facility] RBC 4.10 4.00 - 5.00 MIL/uL [facility] [facility] Hemoglobin 13.1 12.0 - 15.0 g/dL [facility] [facility] Hematocrit 40 36 - 45 % [facility] [facility] MCV 97 80 - 99 fL [facility] [facility] MCH 32 27 - 34 pg [facility] C[facility] [facility] MCHC 33 32 - 36 % [facility] [facility] RDW 13.6 11.5 - 14.5 % [facility] [facility] Platelet Count 177 140 - 400 TH/uL [facility] C[facility] [facility] MPV 10.0 9.4 - 12.3 fL [facility] [facility] Nucleated RBCs 0 0 - 0 /100 [facility] [facility] % Neutrophils 57 45 - 78 % [facility] [facility] %Lymphocytes 33 15 - 47 % [facility] [facility] %Monocytes 8 0 - 12 % [facility] [facility] %Eosinophils 2 0 - 7 % [facility] [place] [facility] %Basophils 1 0 - 2 % [facility] % Imm Grans 0 0 - 1 % [facility] [place] [facility] # Granulocytes 4.95 1.7 - 6.8 TH/uL [facility] [place] [facility] # Lymphocytes 2.90 1.0 - 3.3 TH/uL [facility] [place] [facility] # Monocytes 0.69 0.2 - 0.9 TH/uL [facility] [place] [facility] # Eosinophils 0.14 0.0 - 0.4 TH/uL [facility] # Basophils 0.05 0.0 - 0.1 TH/uL [facility] Specimen Blood Performing Organization Address City/[facility] Ph one Number [facility] [address] [facility] [address] [facility] [address] [facility] [place] [address] [facility] * Culture, Urine (10/01/2019 12:24 PM SALES AND SERVICE ADVISOR) Culture Result Three or more bacterial [facility] species isolated from urine Hospital Lab indicates colonization or fecal contamination. Submission of a repeat specimen is suggested. Isolate 1 Mixed [facility] Specimen Clean Voided Urine Performing Organization Address City/[facility] Ph one Number [address] [address] LABORATORIES [facility] [address] [place] [address] * Urinalysis Microscopic Only (10/01/2019 12:24 PM SALES AND SERVICE ADVISOR) Microscopic RBC 0-5 0 - 5 /hpf [facility] Urine [facility] Microscopic WBC >40 (A) 0 - 5 /hpf [facility] Urine [facility] Epithelial Large (A) Absent [facility] Hyaline Cast Small (A) Absent [facility] Bacteria Absent Absent [facility] Specimen Clean Voided Urine Performing Organization Address City/State/[facility] one Number [facility] [address] [place] [address] [facility] [address] [place] [address] [facility] * Urinalysis Reflex (10/01/2019 12:24 PM SALES AND SERVICE ADVISOR) Appearance, Yellow [facility] Urine [facility] Glucose Urine 100 (A) Negative mg/dL [facility] Bilirubin Urine Negative Negative [facility] Ketones Urine Negative Negative mg/dL [facility] Specific 1.017 1.001 - 1.030 [facility] [place], UA [facility] Hemoglobin Negative Negative [facility] Urine [facility] PH Urine 6.0 5.0 - 8.0 [facility] Protein Urine Trace (A) Negative mg/dL [facility] Qual [facility] Urobilinogen Negative Negative EU/dL [facility] Urine [facility] Nitrite Urine NegativeComment: Culture Negative [facility] Ordered [facility] Leukocyte Positive (A) Negative [facility] Esterase [facility] Specimen Clean Voided Urine Performing Organization Address City/State/[facility] Ph one Number [facility] [address] [place] [address] [facility] [address] [place] [address] [facility] documented in this encounter Visit Diagnoses Diagnosis Flank pain Abdominal pain, unspecified site documented in this encounter Administered Medications Action Date Dose Rate Site Medication Order MAR Action 10/01/2019 3:08 PM SALES AND SERVICE ADVISOR 50 mcg fentaNYL (SUBLIMAZE) injection 50 mcg Given 50 mcg, Intravenous, Once, 10/01/19 a t 1410, For 1 dose 10/01/2019 4:19 PM SALES AND SERVICE ADVISOR 50 mcg fentaNYL (SUBLIMAZE) injection 50 mcg Given 50 mcg, Intravenous, Once, 10/01/19 a t 1604, For 1 dose, Administer over 2 minutes; max dose for IVP is 2 mcg/kg. Note: Limit does not apply to patients who may be tolerant to opioid therapy o r on continuous IV or PO opiate therapy., 10/01/2019 4:34 PM SALES AND SERVICE ADVISOR 983.61 mL/hr sodium chloride 0.9% (NS) IV Bolus Restarted 1,000 mL, Intravenous, Administer over 61 Minutes, Once, 10/01/19 at 1603, For 1 dose 1,000 mL 983.61 mL/hr New Bag 10/01/2019 4:19 PM SALES AND SERVICE ADVISOR documented in this encounter"
--- OUTSIDE RECORDS SUMMARY | 2019-11-28 22:14 | XMS REPORT | Encounter Summary ---
Author Author [facility] Organization [facility] Address Unknown Phone Unavailable Care Team Providers Care Mechanical Engineering Manager Name Role Phone Ebony Sharp MD PCP Encounter Details Care Team Description Date Type Department Letty Ragland RN 09/27/2019 Telephone [facility] (walk-in clinic) [address] [place], [place] [id number] Social History Date Tobacco Use Types Packs/Day [...] encounter Miscellaneous Notes * Telephone Encounter - Lacy Ramirez LPN - 09/28/2019 9:26 AM BICYCLE REPAIRER Spoke with Tanisha and advised pt needs to make an appt. CLE REPAIRER * Telephone Encounter - Ebony Sharp MD - 09/27/2019 9:21 PM BICYCLE REPAIRER I just need to see her before I can sign per Medicare rules (and will gladly sig n once I see her). Thanks!! CLE REPAIRER * Telephone Encounter - Letty Ragland RN - 09/27/2019 1:19 PM BICYCLE REPAIRER Received phone call from ADAM Garay with [facility]. Tanisha notif ied office that they have resumed care of patient and will do one visit this wee k, 2 visits next week and then once per week until the end of patients cert. Per iod. [facility] will need authorization from PCP for these visits. Patients L OV was 05/2019. Tanisha can be reached at [phone] CLE REPAIRER documented in this encounter Plan of Treatment Care Team Description [place] [address] [place] [address] [phone] 02/29/2020 Office Visit Urology documented as of this encounter Visit Diagnoses Not on filedocumented in this encounter
--- OUTSIDE RECORDS SUMMARY | 2019-11-28 22:14 | XMS REPORT | Encounter Summary ---
Author Author [facility] Organization [facility] Address Unknown Phone Unavailable Care Team Providers Care Professor Of Religious Studies Name Role Phone Ebony Sharp MD PCP Reason for Visit * HH Auth Cert Referred By Contact Referred To Contact Status Reason Specialty Diagnoses / Procedures Encounter Details Care Team Description Date Type Department Sherley Dixon TELEPHONE ENCOUNTER 09/26/2019 Home Care Visit [facility] Care and [facility] [address] [facility] [address] [place] [phone] Social History Date Tobacco Use Types Packs/Day [...] Description [place] [address] [place] [address] [phone] 02/29/2020 Office Visit Urology documented as of this encounter Visit Diagnoses Not on filedocumented in this encounter Home Health Visit - Care Plan Visit Type - Telephone Encounter Discipline - SHARED Status Goals Interventions Problem Descriptio Start Date n Active 1 goal linked to scheduled/documented intervention 1 goal intervention scheduled/documented in this visit Shared: Advance 09/09/2019 Directives Disciplines: Mcc, SHARED Active 1 goal linked to scheduled/documented intervention 1 goal intervention scheduled/documented in this visit Shared: Diabetes: 09/09/2019 Knowledge Deficit Related to Diabetic Foot Care Disciplines: Mcc, Physical Therapy, Occupational Therapy, SHARED Active 1 goal linked to scheduled/documented intervention 1 goal intervention scheduled/documented in this visit Shared: Medication Management 09/09/2019 Management and Disciplines: Education Mcc, Physical of All Therapy, Occupational Home Therapy, SHARED Medication s Including Prescripti on and OTC. Active 1 goal linked to scheduled/documented intervention 1 goal intervention scheduled/documented in this visit Shared: Pain Management 09/09/2019 Disciplines: Mcc, Physical Therapy, Occupational Therapy, SHARED Active 1 goal linked to scheduled/documented intervention 1 goal intervention scheduled/documented in this visit Shared: Patient Strength, 09/09/2019 Goals and Care Preferences Disciplines: Mcc, Physical Therapy, Occupational Therapy, SHARED Goal Met? [...] Goal: Directive yes Shared: Durable Power of Vp Cardiovascular Advance (DPOA), Health Care Power directives of Vp Cardiovascular (HCPOA) and obtained, Living Will or if [...] getting Preference short of breath, go to [employer], visit family, Goal: cook own meals and bathe Shared: and dress without Patient/Ca assistance. regiver will progress towards goals and achieve them documented in this encounter
--- OUTSIDE RECORDS SUMMARY | 2019-11-28 22:14 | XMS REPORT | Encounter Summary ---
Author Author [facility] Organization [facility] Address Unknown Phone Unavailable Care Team Providers Care Offset Proof Press Operator Name Role Phone Ebony Sharp MD PCP Reason for Visit * HH Auth Cert Referred By Contact Referred To Contact Status Reason Specialty Diagnoses / Procedures Encounter Details Care Team Description Date Type Department Sherley Dixon TELEPHONE ENCOUNTER 09/25/2019 Home Care Visit [facility] Home Care and [facility] [address] [facility] [address] [place] [phone] Social History Date Tobacco Use Types Packs/Day [...] Description Date [place] [address] [place] [address] [phone] 02/29/2020 Office Visit Urology documented as of this encounter Visit Diagnoses Not on filedocumented in this encounter Home Health Visit - Care Plan Visit Type - Telephone Encounter Discipline - SHARED Status Goals Interventions Problem Descriptio Start Date n Active 1 goal linked to scheduled/documented intervention 1 goal intervention scheduled/documented in this visit Shared: Advance 09/09/2019 Directives Disciplines: Penitentiary, SHARED Active 1 goal linked to scheduled/documented intervention 1 goal intervention scheduled/documented in this visit Shared: Diabetes: 09/09/2019 Knowledge Deficit Related to Diabetic Foot Care Disciplines: Penitentiary, Physical Therapy, Occupational Therapy, SHARED Active 1 goal linked to scheduled/documented intervention 1 goal intervention scheduled/documented in this visit Shared: Medication Management 09/09/2019 Management and Disciplines: Education Penitentiary, Physical of All Therapy, Occupational Home Therapy, SHARED Medication s Including Prescripti on and OTC. Active 1 goal linked to scheduled/documented intervention 1 goal intervention scheduled/documented in this visit Shared: Pain Management 09/09/2019 Disciplines: Penitentiary, Physical Therapy, Occupational Therapy, SHARED Active 1 goal linked to scheduled/documented intervention 1 goal intervention scheduled/documented in this visit Shared: Patient Strength, 09/09/2019 Goals and Care Preferences Disciplines: Penitentiary, Physical Therapy, Occupational Therapy, SHARED Goal Met? [...] Goal: Directive yes Shared: Durable Power of Concrete Pavement Installer Advance (DPOA), Health Care Power directives of Concrete Pavement Installer (HCPOA) and obtained, Living Will or if [...] getting Preference short of breath, go to [employer], visit family, Goal: cook own meals and bathe Shared: and dress without Patient/Ca assistance. regiver will progress towards goals and achieve them documented in this encounter
--- OUTSIDE RECORDS SUMMARY | 2019-11-28 22:14 | XMS REPORT | Encounter Summary ---
Author Author [facility] Organization [facility] Address Unknown Phone Unavailable Care Team Providers Care Machine Shop Worker Name Role Phone Ebony Sharp MD PCP Reason for Referral * Diagnostic Imaging (Routine) Referred By Contact Referred To Contact Status Reason Specialty Diagnoses / [place] [address] [place] [address] [facility] [facility] [address] [place] [phone] Authorized Radiology Diagnoses Ureteral calculus, left P rocedures US Renal complete * Testing (Routine) Referred By Contact Referred To Contact Status Reason Specialty Diagnoses / [place] [address] [place] [address] [facility] [facility] [address] [place] [address] Closed Urology Diagnoses Ureteral calculus, left P rocedures Cystoscopy with Stent Pull Reason for Visit * Reason Comments Nephrolithiasis cysto/stent * Testing (Routine) Referred By Contact Referred To Contact Status Reason Specialty Diagnoses / [place] [address] [place] [address] [facility] [facility] [address] [place] [phone] Closed Urology Diagnoses Ureteral calculus, left P rocedures Cystoscopy with Stent Pull Encounter Details Care Team Description Date [place] [address] [place] [address] [phone] Ureteral calculus, left (Primary Dx); Renal calculus 09/29/2019 Procedure visit [facility] [address] [place] [address] Social History Date Tobacco Use Types Packs/Day [...] Signs Reading Time Taken Comments Vital Sign 125/82 09/29/2019 12:30 PM PHYSICAL CHEMISTRY PROFESSOR Blood Pressure 92 09/29/2019 12:30 PM PHYSICAL CHEMISTRY PROFESSOR Pulse - - Temperature - - Respiratory Rate - - Oxygen Saturation - - Inhaled Oxygen Concentration 92.5 kg (204 lb) 09/29/2019 12:30 PM PHYSICAL CHEMISTRY PROFESSOR Weight 157.5 cm (5' 2") 09/29/2019 12:30 PM PHYSICAL CHEMISTRY PROFESSOR Height 37.31 09/29/2019 12:30 PM PHYSICAL CHEMISTRY PROFESSOR Body Mass Index documented in this encounter Progress Notes * Darin Huber MD - 09/29/2019 1:00 PM PHYSICAL CHEMISTRY PROFESSOR Urology follow up note Darin Huber Encounter Date: 09/29/2019 12:47 PM Patient Demographic Information: Patient Name: Caren Patten Age: 69 y.o. Sex: female Date of : 1950 PCP: Ebony Sharp MD Physician requesting consultation: No ref. provider found Chief Complaint Patient presents with Nephrolithiasis cysto/stent The primary encounter diagnosis was Ureteral calculus, left. A diagnosis of Viry l calculus was also pertinent to this visit. HPI Pt presents for post-op and procedural regarding left ureteral stone. Pt does not have a family hx of kidney stones. Associated symptoms:frequency, urgency, nocturia, weak stream and incomplete emp tying The patient denies: Symptoms: hematuria, abdominal pain, suprapubic pain, fever, chills and nausea Duration of most recent stone: weeks. Most recent treatment: Recent Tx of:Cystourethroscopy, left ureteral stent remov al, left retrograde pyelogram, left ureteroscopy, laser lithotripsy, basket extraction of stone and left ureteral stent placement (6-Vietnamese x 26 cm). Course of symptoms: decreasing. Patient post-op visit stent placement and ureteroscopy/litho Surgery date 09-21-2019 Associated symptoms:frequency, urgency, nocturia, weak stream and incomplete emp tying The patient denies: Symptoms: hematuria, abdominal pain, suprapubic pain, fever, chills, nausea and vomiting Course of symptoms: improving. Histories Allergies Allergen Reactions Lisinopril Anaphylaxis Metformin Anaphylaxis Angioedema Sulfa (Sulfonamide Antibiotics) Hives and Itching Latex, Natural Rubber Hives Reaction from oxygen nasal cannula Current Medications Current Outpatient Medications Medication Sig Dispense Refill [...] PUFF BY MOUTH DAILY 60 each 0 citalopram (CELEXA) 20 mg tablet Take 1 tablet (20 mg total) by mouth daily. 90 tablet 1 cyclobenzaprine (FLEXERIL) 10 MG tablet Take 1 tablet (10 mg total) by mouth 3 (three) times a day as needed for muscle spasms. 90 tablet 0 gabapentin (NEURONTIN) 300 MG capsule TAKE 2 CAPSULES BY MOUTH THREE TIMES D AILY 540 capsule 0 hydroCHLOROthiazide (HYDRODIURIL) 25 MG tablet Take 1 tablet (25 mg total) b y mouth daily. 30 tablet 0 HYDROcodone-acetaminophen (NORCO) 5-325 mg per tablet Take 1 tablet by mouth every 6 (six) hours as needed for pain. Max Daily Dose: 4 tablets 10 tablet 0 hyoscyamine (LEVSIN/SL) 0.125 mg SL [...] MOUTH TWICE D AILY 180 tablet 0 OXYGEN THERAPY 2 L/min as needed. phenazopyridine (PYRIDIUM) 200 MG tablet Take 1 tablet (200 mg total) by tanna th 3 (three) times a day as needed for pain. 9 tablet 0 predniSONE (DELTASONE) 10 MG tablet Take 10 mg by mouth daily. vit A/vit C/biotin/zinc/copper (TWOR-GBQQ-EPGW,VIT A,C-BIOTIN, ORAL) Take by mouth daily. cephalexin (KEFLEX) 500 MG capsule Take 1 capsule (500 mg total) by mouth 3 (three) times a day. 15 capsule 0 fluconazole (DIFLUCAN) 100 MG tablet Take 1 tablet (100 mg total) by mouth d aily. 5 tablet 0 lactobacillus (CULTURELLE) 10 billion cell capsule Take 2 capsules by mouth daily. 20 capsule 0 oxyCODONE-acetaminophen (PERCOCET) 5-325 mg per tablet Take 1 tablet by mout h every 4 (four) hours as needed. Max Daily Dose: 6 tablets 10 tablet 0 SITagliptin (JANUVIA) 50 MG tablet Take 2 tablets (100 mg total) by mouth da edu. 30 tablet 0 tolterodine (DETROL) 2 MG tablet Take 1 tablet (2 mg total) by mouth 2 (two) times a day. 30 tablet 0 traMADol (ULTRAM) 50 mg tablet Take 1 tablet (50 mg total) by mouth every 6 (six) hours as needed for pain. Max Daily Dose: 200 mg 8 tablet 0 No current facility-administered medications for this visit. Review of Systems [facility]: No results found for this or any previous visit (from the past 24 hour(s)). Physical Exam Vitals: 09/29/19 1230 BP: 125/82 Pulse: 92 Weight: 92.5 kg (204 lb) Height: 1.575 m (5' 2") Gen: Alert and oriented Abd: Soft, non-tender, non-distended Back: No CVA tenderness on the RIGHT, No CVA tenderness on LEFT : Introitus: No masses or tenderness Vagina: No atrophy or masses Urethra: orthotopic. No masses or tenderness. Bladder: no bladder distension noted Assessment/Plan Problem List Genitourinary Renal calculus Overview 06/21/2019 Snyder is a 68-year-old female with a few week history of left knee pain. She und erwent a CT scan at [facility] that demonstrated proximal a 1.5 cm left lower po le stone. No evidence of hydronephrosis or right-sided stone burden. She denie s any gross hematuria and/or passage of stone material. She has no history of n ephrolithiasis. Denies any fevers chills nausea or vomiting. Options for management of ureteral stone were discussed in detail with the patie nt and daughter. They include medical expulsive therapy, ESWL as outpatient, vs ureteroscopy with laser lithotripsy, stone extraction and stent. The risks, be nefits and complications of each were reviewed. Based on the patients symptoms, medical condition, lab and radiographic findings it was determined that ureter oscopy with laser lithotripsy, stone extraction and stent would be their best op tion. The risks and complications include, but are not limited to: bleeding, in fection, damage to surrounding organs (urethra, bladder, ureter, development of ureteral stricture), inability to treat stone in a single setting requiring seco ndary procedures and stent irritation. The patient and daughter had a chance to ask questions which were answered to their satisfaction and voiced clear unders tanding of the procedure. They elect to proceed with Cystoscopy, Left retrograd e pyelogram, ureteroscopy with laser lithotripsy, stone extraction and stent. - Pre-op Labs - Ucx 07/14/2019 Patient returns today 2 weeks status post a left ureteroscopy for a large lower pole stone. Intra-Op had some venous oozing from renal epithelium. Resents tod ay with significant stent discomfort unfortunately KUB demonstrates the stone to be broken up but certainly still present. We discussed removing her stent and simple observation versus a repeat ureteroscopy. She would like to undergo a re peat ureteroscopy. I refilled medications including Uribel, trospium, and hydro codone due to significant discomfort. - Left Ureteroscopy next week 08/10/2019 Left URS/stone extraction/stent change performed 08/02 Left ureteral stent removed today (see procedure note). FU 2 months with Renal US and Stone analysis 09/29/2019 Unfortunately approximately 1 month after her ureteral stent was removed [facility] with increasing flank pain was found to have a 4 to 5 mm left proximal ureteral fragment. She was also diagnosed with a UTI and sepsi s at that time. She was taken the OR by Dr. Aragon for a left ureteral stent p lacement. Patient subsequent went to ureteroscopy with stone extraction and guero nt exchange. She presents today for stent removal. Fluconazole Keflex Tramadol PRN FU 2 months with renal us Relevant Medications traMADol (ULTRAM) 50 mg tablet Ureteral calculus, left - Primary Relevant Medications traMADol (ULTRAM) 50 mg tablet Other Relevant Orders POCT UA w Micro Only (Small Stick) Cystoscopy with Stent Pull US Renal complete Cystoscopy with Stent Pull Procedure Note Patient: Caren Patten Age: 69 y.o. : 1950 Diagnosis: Ureteral stone Procedure: Cystoscopy with Stent Pull Surgeon: Darin Huber Despription of procedure: After obtaining informed consent, the patient's genitals were prepped and draped in standard sterile fashion. Viscous lidocaine was instilled per urethra for local anesthetic. The flexible cystoscope was introduced into the bladder. The Left ureteral stent was identified and removed with flexible stent graspers Keflex/Fluconazole prophylaxis was rx'd The patient tolerated the procedure and was discharged home in good condition. Return in about 2 months (around 11/28/2019). Electronically signed by: Darin Huber 09/29/2019 12:47 PM ICAL CHEMISTRY PROFESSOR documented in this encounter Plan of Treatment Care Team Description [place] [address] [place] [address] [phone] 02/29/2020 Office Visit Urology Order Schedule Name Type Priority Associated Diag noses Ordered: 09/29/2019 Cystoscopy with Stent Procedure Routine Ureteral calculus, left Pull Expected: 11/28/2019, Expires: 1 Renal complete Imaging Routine Ureteral rosalind culus, left documented as of this encounter Procedures Comments Procedure Name Priority Date/Time Associated Diag nosis POCT UA W MICRO ONLY Routine 09/29/2019 Ureteral calculus, left 1:01 PM PHYSICAL CHEMISTRY PROFESSOR documented in this encounter Results * POCT UA w Micro Only (Small Stick) (09/29/2019 1:01 PM PHYSICAL CHEMISTRY PROFESSOR) Appearance, Comment: Stent Urine Glucose Urine 250 (A) Negative mg/dL Bilirubin Urine Negative Negative Ketones Urine Negative Negative Specific 1.020 1.001 - 1.030 [place], UA Hemoglobin Large (A) Negative Urine PH Urine 5.5 5.0 - 8.0 Protein Urine 30 (A) Negative Qual Urobilinogen 0.2 Negative EU/dL Urine Nitrite Urine Negative Negative Leukocyte Small (A) Negative Esterase Microscopic rbc 10-20, wbc 3-5 Examination Specimen Urine documented in this encounter Visit Diagnoses Diagnosis Ureteral calculus, left Calculus of ureter Renal calculus Calculus of kidney documented in this encounter
--- OUTSIDE RECORDS SUMMARY | 2019-11-28 22:14 | XMS REPORT | Encounter Summary ---
Author Author [facility] Organization [facility] Address Unknown Phone Unavailable Care Team Providers Care Touch Up Painter Name Role Phone Ebony Sharp MD PCP Encounter Details Care Team Description [place] [address] [place] [address] [phone] Nephrolithiasis 09/29/2019 Imaging [facility] Radiol ogy Appointment [address] [place] [phone] Social History Date Tobacco Use Types Packs/Day [...] Description Date Type [place] [address], [place] [address] [phone] 02/29/2020 Office Visit Urology documented as of this encounter Procedures Comments Procedure Name Priority Date/Time Associated Diag nosis XR ABDOMEN SINGLE VIEW AP Routine 09/29/2019 Neph rolithiasis 12:10 PM SHANK BURNISHER documented in this encounter Results * XR Abdomen single view AP (09/29/2019 12:10 PM SHANK BURNISHER) Specimen Impressions Performed At Left ureteral stent. No renal or bladder calculi. ABI FELIPE Nonobstructive bowel gas pattern. Previ ous cholecystectomy. Narrative Performed At Patient: ISIAH BENÍTEZ Sex#: F #: [id number] Jose #: [id number] Location: BS XR 4 Procedure Requested: [id number] XR ABDOM EN SINGLE VIEW AP Reason for Exam: Nephrolithiasis Exam Ordered: 09/29/2019 120 1 Exam Date/Time: 09/29/2019 1210 Begin exam date/time: 09/29/2019 1203 XR ABDOMEN SINGLE VIEW AP Date: 09/29/2019 12:10 PM History: Nephrolithiasis Procedure Note Interface, Rad Results In - 09/29/2019 12:53 PM SHANK BURNISHER Patient: ISIAH BENÍTEZ Sex#: F #: [id number] Jose#: [id number] Location: XR Procedure Requested: [id number] XR ABDOMEN SINGLE VIEW AP Reason for Exam: Nephrolithiasis Exam Ordered: 09/29/2019 1201 Exam Date/Time: 09/29/2019 1210 Begin exam date/time: 09/29/2019 1203 XR ABDOMEN SINGLE VIEW AP Date: 09/29/2019 12:10 PM History: Nephrolithiasis IMPRESSION Left ureteral stent. No renal or bladder calculi. Nonobstructive bowel gas pattern. Previous cholecystectomy. Performing Organization Address City/State/Zipcode Ph one [place] [facility] documented in this encounter Visit Diagnoses Diagnosis Nephrolithiasis Calculus of kidney documented in this encounter
--- OUTSIDE RECORDS SUMMARY | 2019-11-28 22:14 | XMS REPORT | Encounter Summary ---
Author Author [facility] Organization [facility] Address Unknown Phone Unavailable Care Team Providers Care Security Developer Name Role Phone Ebony Sharp MD PCP Reason for Visit * HH Auth Cert Referred By Contact Referred To Contact Status Reason Specialty Diagnoses / Procedures Encounter Details Care Team Description Date Type Department Melva Stephenson, ADAM CASE COMMUNICATION 09/27/2019 Home Care Visit [facility] Home Care and page [facility] [address] [facility] [address] [place] [phone] Social History Date Tobacco Use Types Packs/Day [...] Description Date [place] [address] [place] [address] [phone] 02/29/2020 Office Visit Urology documented as of this encounter Visit Diagnoses Not on filedocumented in this encounter Home Health Visit - Care Plan Visit Type - Case Communication Discipline - SHARED Status Goals Interventions Problem Descriptio Start Date n Active 1 goal linked to scheduled/documented intervention 1 goal intervention scheduled/documented in this visit Shared: Advance 09/09/2019 Directives Disciplines: Long Term, SHARED Active 1 goal linked to scheduled/documented intervention 1 goal intervention scheduled/documented in this visit Shared: Diabetes: 09/09/2019 Knowledge Deficit Related to Diabetic Foot Care Disciplines: Long Term, Physical Therapy, Occupational Therapy, SHARED Active 1 goal linked to scheduled/documented intervention 1 goal intervention scheduled/documented in this visit Shared: Medication Management 09/09/2019 Management and Disciplines: Education Long Term, Physical of All Therapy, Occupational Home Therapy, SHARED Medication s Including Prescripti on and OTC. Active 1 goal linked to scheduled/documented intervention 1 goal intervention scheduled/documented in this visit Shared: Pain Management 09/09/2019 Disciplines: Long Term, Physical Therapy, Occupational Therapy, SHARED Active 1 goal linked to scheduled/documented intervention 1 goal intervention scheduled/documented in this visit Shared: Patient Strength, 09/09/2019 Goals and Care Preferences Disciplines: Long Term, Physical Therapy, Occupational Therapy, SHARED Goal Met? [...] Goal: Directive yes Shared: Durable Power of English Division Chair Advance (DPOA), Health Care Power directives of English Division Chair (HCPOA) and obtained, Living Will or if [...] getting Preference short of breath, go to adventist, visit family, Goal: cook own meals and bathe Shared: and dress without Patient/Ca assistance. regiver will progress towards goals and achieve them documented in this encounter
--- OUTSIDE RECORDS SUMMARY | 2019-11-28 22:14 | XMS REPORT | Encounter Summary ---
Author Author [facility] Organization [facility] Address Unknown Phone Unavailable Care Team Providers Care Process Lead Name Role Phone Ebony Sharp MD PCP Reason for Visit * HH Auth Cert Referred By Contact Referred To Contact Status Reason Specialty Diagnoses / Procedures Encounter Details Care Team Description Date Type Department Aury Louis RN SN MISSED VISIT DOCUMENTATION 10/02/2019 Home Care Visit [facility] Home Care and [facility] [address] [facility] [address] [place] [address] Social History Date Tobacco Use [...] history available. documented as of this encounter Progress Notes * uAry Louis RN - 10/02/2019 4:00 PM HOME HEALTH SPEECH THERAPIST Dr. Sharp This patient missed a visit with [facility] on 10/02/19 due to Patient has appoi ntment tomorrow which is needed for HH orders to be signed, which put home healt h out of compliance with stated frequency. HEALTH SPEECH THERAPIST documented in this encounter Plan of Treatment Care Team Description Date [place] [address] [place] [address] [phone] 02/29/2020 Office Visit Urology documented as of this encounter Visit Diagnoses Not on filedocumented in this encounter Home Health Visit - Care Plan Visit Type - SN Missed Visit Documenta tion Discipline - Prison Status Goals Interventions Problem Descriptio Start Date n Active 1 goal linked to scheduled/documented intervention 1 goal intervention scheduled/documented in this visit SN DM: Knowledge Deficit 09/09/2019 Related to Diabetes Disciplines: Prison Active 1 goal linked to scheduled/documented intervention 1 goal intervention scheduled/documented in this visit SN : Knowledge Deficit 09/09/2019 Related to UTI Disciplines: Prison Active 1 goal linked to scheduled/documented intervention [...] Goal: Directive yes Shared: Durable Power of Driver/Guide Advance (DPOA), Health Care Power directives of Driver/Guide (HCPOA) and obtained, Living Will or if [...] Preference short of breath, go to s latter day, visit family, Goal: cook own meals and bathe Shared: and dress without Patient/Ca assistance. regiver will progress towards goals and achieve them documented in this encounter
--- OUTSIDE RECORDS SUMMARY | 2019-11-28 22:14 | XMS REPORT | Encounter Summary ---
Author Author [facility] Organization [facility] Address Unknown Phone Unavailable Care Team Providers Care Line Dancer Name Role Phone Ebony Sharp MD PCP Reason for Visit * HH Auth Cert Referred By Contact Referred To Contact Status Reason Specialty Diagnoses / Procedures Encounter Details Care Team Description Date Type Department Gaby Wolff OT TELEPHONE ENCOUNTER 10/02/2019 Home Care Visit [facility] Home Care and [facility] [address] [facility] [address] [place] [phone] Social History Date Tobacco Use Types Packs/Day [...] Description Date [place] [address] [place] [address] [phone] 02/29/2020 Office Visit Urology documented as of this encounter Visit Diagnoses Not on filedocumented in this encounter Home Health Visit - Care Plan Visit Type - Telephone Encounter Discipline - SHARED Status Goals Interventions Problem Descriptio Start Date n Active 1 goal linked to scheduled/documented intervention 1 goal intervention scheduled/documented in this visit Shared: Advance 09/09/2019 Directives Disciplines: Group Home, SHARED Active 1 goal linked to scheduled/documented intervention 1 goal intervention scheduled/documented in this visit Shared: Diabetes: 09/09/2019 Knowledge Deficit Related to Diabetic Foot Care Disciplines: Group Home, Physical Therapy, Occupational Therapy, SHARED Active 1 goal linked to scheduled/documented intervention 1 goal intervention scheduled/documented in this visit Shared: Medication Management 09/09/2019 Management and Disciplines: Education Group Home, Physical of All Therapy, Occupational Home Therapy, SHARED Medication s Including Prescripti on and OTC. Active 1 goal linked to scheduled/documented intervention 1 goal intervention scheduled/documented in this visit Shared: Pain Management 09/09/2019 Disciplines: Group Home, Physical Therapy, Occupational Therapy, SHARED Active 1 goal linked to scheduled/documented intervention 1 goal intervention scheduled/documented in this visit Shared: Patient Strength, 09/09/2019 Goals and Care Preferences Disciplines: Group Home, Physical Therapy, Occupational Therapy, SHARED Goal Met? [...] Goal: Directive yes Shared: Durable Power of Line Fisher Advance (DPOA), Health Care Power directives of Line Fisher (HCPOA) and obtained, Living Will or if [...] getting Preference short of breath, go to yazidism, visit family, Goal: cook own meals and bathe Shared: and dress without Patient/Ca assistance. regiver will progress towards goals and achieve them documented in this encounter
--- OUTSIDE RECORDS SUMMARY | 2019-11-28 22:15 | XMS REPORT | Encounter Summary ---
Author Author [facility] Organization [facility] Address Unknown Phone Unavailable Care Team Providers Care Hospital Technician Name Role Phone Ebony Sharp MD PCP Encounter Details Care Team Description Date [place] [address] [place] [address] [phone] 09/22/2019 Orders Only [facility] [address] [place] [address] Social History Date Tobacco Use Types Packs/Day [...] Description Date [place] [address] [place] [address] [phone] 02/29/2020 Office Visit Urology documented as of this encounter Visit Diagnoses Not on filedocumented in this encounter
--- OUTSIDE RECORDS SUMMARY | 2019-11-28 22:15 | XMS REPORT | Encounter Summary ---
Author Author [facility] Organization [facility] Address Unknown Phone Unavailable Care Team Providers Care Disc Pad Grinder Name Role Phone Ebony Sharp MD PCP Encounter Details Care Team Description Date [place] [address] [place] [phone] 09/22/2019 Telephone [facility] [address] [place], [place] [phone] Social History Date Tobacco Use Types Packs/Day [...] encounter Miscellaneous Notes * Telephone Encounter - Tonja Hernandez - 09/22/2019 4:23 PM MAT ROLLER I scheduled pt for 09/28/[address] Huber. I lm for pt to call me back Wednesday to discuss. ROLLER * Telephone Encounter - Tonja Hernandez - 09/22/2019 4:23 PM MAT ROLLER ----- Message from Janet Aragon MD sent at 09/21/2019 2:45 PM MAT ROLLER ----- Regarding: stent pull Please schedule stent pull with KUB with agustin next Wednesday or . If no openings, schedule with me the following week that I am back from vacation. Pls confirm, thanks. [place] currently inpatient [facility], she should be going home soon. ROLLER documented in this encounter Plan of Treatment Care Team Description [place] [address] [place] [address] [phone] 02/29/2020 Office Visit Urology documented as of this encounter Visit Diagnoses Not on filedocumented in this encounter
--- OUTSIDE RECORDS SUMMARY | 2019-11-28 22:15 | XMS REPORT | Encounter Summary ---
Author Author [facility] Organization [facility] Address Unknown Phone Unavailable Care Team Providers Care Higher Level Teaching Assistant Name Role Phone Ebony Sharp MD PCP Reason for Visit * Reason Comments Chest pain c/o 3 days of abdominal samuel n and chest pain. c/o sob. EMS arrived to home and reports patient c/o nausea. zofran 8mg odt given. BS 392. diaphoretic. last time felt like this a few weeks ag o was admited to ICU with sepsis here. * Auth/Cert Referred By Contact Referred To Contact Status Reason Specialty Diagnoses / Procedures Diagnoses Pyelonephritis Sepsis, due to unspecified organism, unspecified whether acute organ dysfunction present (HCC) Encounter Details Care Team Description Date [place] [address] [place] [id number] CYSTOSCOPY, LEFT URETERAL STENT REMOVAL 09/21/2019 Surgery [facility] [address] [place] [address] Social History Date Tobacco Use Types Packs/Day [...] Signs Reading Time Taken Comments Vital Sign 115/76 09/23/2019 12:09 PM [facility] Blood Pressure 63 09/23/2019 12:09 PM [facility]ICE [facility] Pulse 36.7 C (98.1 F) 09/23/2019 12:09 PM [facility] Temperature 17 09/23/2019 12:09 PM [facility] Respiratory Rate 98% 09/23/2019 12:09 PM [facility]PRENT[facility] Oxygen Saturation - - Inhaled Oxygen Concentration 102 kg (224 lb 13.9 oz) 09/23/2019 4:34 AM [facility]PRENTICE [facility] Weight 157.5 cm (5' 2") 09/17/2019 2:17 PM [facility]ENT[facility] Height 41.13 09/17/2019 2:17 PM [facility]PRENTICE [facility] Body Mass Index documented in this encounter Discharge Summaries * Art Watts II, DO - 09/23/2019 1:06 PM [facility]charge Summary Patient Name: Isiah Do Board Account No: [id number] Date of : 1950 Date of Admission: 09/17/2019 7:42 AM Date of Discharge: 09/23/2019 1:06 PM Length of Stay: 6 Days Readmit Risk: 23 Primary Care Physician: Ebony Sharp MD; Reason for Hospital Admission and Brief Hospital Course: 69-year-old female pres ented to the emergency department complaints of chest pain. She had a chest x-r ay that did not show any acute intrathoracic abnormalities. Patient did start t o complain of flank pain and had a urinalysis consistent with infection. She diggs d a CT of her abdomen pelvis which showed findings consistent with previously kn own left ureteral stent with migration of previous calculi. She was admitted to the medicine service started on antibiotics and consultation was placed to urol raheem. Patient continued to have pain throughout her hospital course and on ry 30 she was taken for cystoscopy with stent removal along with removal of calc ulus by urology. Patient tolerated procedure well no complications postoperativ meagan she had less pain. She did have some hematuria postoperative however this r esolved by time of discharge. Blood glucose was difficult to control during hos pitalization endocrinology was consulted. Lantus was increased to 25 units at b edtime. It was felt that a recent COPD exacerbation requiring steroid taper was contributing to her hyperglycemia. It was recommended the patient be discharged home with home health. On day of discharge patient proved in stable condition. The patient was seen and examined by me on the day of her discharge. Her dischar ge plan was discussed fully with the patient. All questions were answered. Disposition: Discharged in good condition to home with home health. Problems Addressed During This Admission: Principal Problem: Ureteral calculus, left Active Problems: Type 2 diabetes mellitus with hyperglycemia, with long-term current use of ins ulin (HCC) Generalized abdominal pain Suspected UTI COPD (chronic obstructive pulmonary disease) (HCC) Essential hypertension SASHA on CPAP Morbid obesity due to excess calories ([facility]) Chronic respiratory failure (HCC) Resolved Problems: Confusion Elevated LFTs Code Status: Full Code Recommended Diet: Diet-Consistent Carbohydrate (75 gm) Diet - Low Fat/Chol, 2gm Na (Simply Healthy) Activity/Restrictions: activity as tolerated Scheduled Follow Up Appointments/Studies ([facility] Providers): Future Appointments Date Time Provider Department Center 09/28/2019 3:35 PM [facility] XR 1 [facility] 09/28/2019 4:00 PM Darin Huber MD [facility] 10/04/2019 1:45 PM [facility] [place] 10/11/2019 1:30 PM Darin Huber MD [facility] Additional Discharge Follow Up: Dr. Ebony Sharp MD, primary care physician in 5-[address] Duque within 1 week Additional Labs Appointments/Diagnostic Studies: None Allergies Allergen Reactions Lisinopril Anaphylaxis Metformin Anaphylaxis Angioedema Sulfa (Sulfonamide Antibiotics) Hives and Itching Latex, Natural Rubber Hives Reaction from oxygen nasal cannula Discharge Medications New Medications Indication(s) HYDROcodone-acetaminophen 5-325 mg per tablet Commonly known as: NORCO 1 tablet, Oral, Every 6 hours PRN hyoscyamine 0.125 mg SL tablet Commonly known as: LEVSIN/SL 0.125 mg, Sublingual, Every 4 hours PRN SITagliptin 50 MG tablet Commonly known as: JANUVIA 100 mg, Oral, Daily Indication: type 2 diabetes mellitus Modified Medications Indication(s) atorvastatin 40 MG tablet Commonly known as: LIPITOR 40 mg, Oral, Daily What changed: when to take this ipratropium-albuterol 0.5-3 mg/3 mL nebulizer Commonly known as: DUO-NEB 3 mL, Inhalation, 4 times daily What changed: when to take this reasons to take this Lantus U-100 Insulin 100 unit/mL injection Generic drug: insulin glargine 25 Units, Subcutaneous, Nightly What changed: how much to take how to take this when to take this additional instructions Medications To Continue Indication(s) albuterol 90 mcg/actuation HFA inhaler Commonly known as: PROAIR/PROVENTIL/VENTOLIN 2 puffs, Inhalation, Every 6 hours PRN amitriptyline 25 MG tablet Commonly known as: ELAVIL 25 mg, Oral, Nightly Breo Ellipta 200-25 mcg/actuation INHALER Generic drug: fluticasone furoate-vilanterol INHALE 1 PUFF BY MOUTH DAILY citalopram 20 mg tablet Commonly known as: CeleXA 20 mg, Oral, Daily cyclobenzaprine 10 MG tablet Commonly known as: FLEXERIL 10 mg, Oral, 3 times daily PRN gabapentin 300 MG capsule Commonly known as: NEURONTIN TAKE 2 CAPSULES BY MOUTH THREE TIMES DAILY [id number](VIT A,C-BIOTIN) ORAL Oral, Daily hydroCHLOROthiazide 25 MG tablet Commonly known as: HYDRODIURIL 25 mg, Oral, Daily * insulin syringe 0.3 mL 31 gauge x 5/16" Commonly known as: BD ULTRA-FINE Subcutaneous, Daily, use as directed * insulin syringe 0.3 mL 31 gauge x 5/16" USE DIRECTED lactobacillus 10 billion cell capsule Commonly known as: CULTURELLE 2 capsules, Oral, Daily metoprolol tartrate 100 MG tablet Commonly known as: LOPRESSOR TAKE 1 TABLET BY MOUTH TWICE DAILY oxyCODONE-acetaminophen 5-325 mg per tablet Commonly known as: PERCOCET 1 tablet, Oral, Every 4 hours PRN OXYGEN THERAPY 2 L/min, As needed phenazopyridine 200 MG tablet Commonly known as: PYRIDIUM 200 mg, Oral, 3 times daily PRN Indication: difficult or painful urination tolterodine 2 MG tablet Commonly known as: DETROL 2 mg, Oral, 2 times daily * There are duplicate medications prescribed to the patient Stopped Medications predniSONE 10 MG tablet Commonly known as: DELTASONE Vital Signs at the time of discharge: Blood Pressure: BP: 115/76 Pulse: Pulse: 63 Temperature: Temp: 36.7 C (98.1 F) Respirations: Resp: 17 Admission Weight: Weight: 90.7 kg (200 lb) O2 Saturation: SpO2: 98 % Discharge Weight: Weight: 102 kg (224 lb 13.9 oz) BMI: Body mass index is 41.13 kg/m. Physical Exam Constitutional: General: She is not in acute distress. Appearance: Normal appearance. She is not ill-appearing. HENT: Head: Normocephalic and atraumatic. Mouth/Throat: Mouth: Mucous membranes are moist. Cardiovascular: Rate and Rhythm: Normal rate and regular rhythm. Pulmonary: Effort: Pulmonary effort is normal. No respiratory distress. Breath sounds: Normal breath sounds. No wheezing or rales. Abdominal: General: Bowel sounds are normal. There is no distension. Palpations: Abdomen is soft. Tenderness: There is no tenderness. There is no guarding. Musculoskeletal: Right lower leg: No edema. Left lower leg: No edema. Skin: General: Skin is warm and dry. Neurological: General: No focal deficit present. Mental Status: She is alert and oriented to person, place, and time. Motor: No weakness. Psychiatric: Mood and Affect: Mood normal. Behavior: Behavior normal. Labs - Last 36 hours: Recent Results (from the past 36 hour(s)) GLUCOSE POC Collection Time: 09/22/19 5:03 AM Result Value Ref Range Glucose POC 133 (H) 70 - 100 mg/dL GLUCOSE POC Collection Time: 09/22/19 7:54 AM Result Value Ref Range Glucose POC 195 (H) 70 - 100 mg/dL GLUCOSE POC Collection Time: 09/22/19 12:16 PM Result Value Ref Range Glucose POC 268 (H) 70 - 100 mg/dL GLUCOSE POC Collection Time: 09/22/19 4:31 PM Result Value Ref Range Glucose POC 372 (H) 70 - 100 mg/dL GLUCOSE POC Collection Time: 09/22/19 7:36 PM Result Value Ref Range Glucose POC 344 (H) 70 - 100 mg/dL GLUCOSE POC Collection Time: 09/22/19 11:39 PM Result Value Ref Range Glucose POC 158 (H) 70 - 100 mg/dL CBC and Diff (manual diff if necessary) Collection Time: 09/23/19 3:03 AM Result Value Ref Range WBC 8.80 4.00 - 11.00 TH/uL RBC 3.48 (L) 4.00 - 5.00 MIL/uL Hemoglobin 11.3 (L) 12.0 - 15.0 g/dL Hematocrit 35 (L) 36 - 45 % MCV 99 80 - 99 fL MCH 33 27 - 34 pg MCHC 33 32 - 36 % RDW 13.6 11.5 - 14.5 % Platelet Count 172 140 - 400 TH/uL MPV 10.0 9.4 - 12.3 fL Nucleated RBCs 0 0 - 0 /100 % Neutrophils 54 45 - 78 % %Lymphocytes 34 15 - 47 % %Monocytes 10 0 - 12 % %Eosinophils 2 0 - 7 % %Basophils 0 0 - 2 % % Imm Grans 0 0 - 1 % # Granulocytes 4.77 1.7 - 6.8 TH/uL # Lymphocytes 2.95 1.0 - 3.3 TH/uL # Monocytes 0.88 0.2 - 0.9 TH/uL # Eosinophils 0.16 0.0 - 0.4 TH/uL # Basophils 0.01 0.0 - 0.1 TH/uL Basic Metabolic Panel Collection Time: 09/23/19 3:03 AM Result Value Ref Range Sodium 135 133 - 147 MEQ/L Potassium 3.7 3.5 - 5.3 MEQ/L Chloride 94 (L) 96 - 112 MEQ/L Carbon Dioxide 36 (H) 20 - 32 MEQ/L Anion Gap 5 5 - 17 Calcium 9.0 8.4 - 10.5 mg/dL Glucose 146 (H) 70 - 100 mg/dL Blood Urea Nitrogen 30 (H) 7 - 26 mg/dL Creatinine 0.7 0.4 - 1.1 mg/dL eGFR Female AA 100 60 - 200 mL/min/1.73sq m eGFR Female Non-AA 83 60 - 200 mL/min/1.73sq m GLUCOSE POC Collection Time: 09/23/19 8:09 AM Result Value Ref Range Glucose POC 137 (H) 70 - 100 mg/dL GLUCOSE POC Collection Time: 09/23/19 12:11 PM Result Value Ref Range Glucose POC 166 (H) 70 - 100 mg/dL Imaging during this encounter: Ct Abdomen Pelvis W Contrast Result Date: 09/17/2019 1. Interval placement of left nephro ureteral stent in appropriate position with decompression of the left-sided collecting system. Left sided ureteral calculus has migrated slightly now at the level of the iliac crests. 2. 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 3. Hepatomegaly with hepatic steatosis. 4. Prominence of the central intrahepatic and extra hepatic bile ducts with the common bile duct measuring up to 0.8 cm. This is most likely related to the postcholecystectomy state of the patient, although it is new from the prior CT. MRI/MRCP may be performed to assess for biliary obstruction, if clinically warranted. READING SITE: [facility] ATTESTATION STATEMENT: The staff radiologist has personally reviewed the images and dictated, reviewed, or edited the final report. Ct Head Wo Contrast Result Date: 09/20/2019 Impression: No acute intracranial process. Mild cerebral volume loss. Mild chronic small vessel ischemic disease. The above findings are in general agreement with those in the preliminary report provided by [email or web address]. READING SITE: [facility]. ATTESTATION STATEMENT: The Staff Radiologist has personally reviewed the images and dictated, reviewed, or edited the final report. Fl Retrograde Urography In Or Result Date: 09/21/2019 Fluoroscopic support for the Urology services. Please see operative report for details. READING SITE: [facility] Abdomen Limited Result Date: 09/20/2019 Impression: 1. Diffuse hepatic steatosis without focal hepatic lesion. 2. Cholecystectomy. ATTESTATION STATEMENT: The Staff Radiologist has personally reviewed this study and agrees with the findings in this report. READING SITE: [employer] Xr Chest 2 Views (pa And Lateral) Result Date: 09/19/2019 1. Bibasilar subsegmental atelectasis. READING SITE: [employer] Xr Chest Single View Frontal Result Date: 09/17/2019 1. No acute cardiopulmonary abnormality. 2. Low lung volumes. Mild atelectasis. READING SITE: [facility] Cardiac Studies during this encounter: No results found. Additional Studies: None Procedures: None 30 minutes were spent in the discharge of this patient performing the physical e xam, writing the discharge orders, and reviewing the patient's discharge plan of care and follow up information as noted above as well as other information as d ocumented in this summary note. Art Watts II, DO [facility] . [facility] documented in this encounter Medications at Time [...] tablet (40 mg total) by mouth daily. 07/14/2019 citalopram (CELEXA) 20 mg Take 1 tablet 90 tablet 1 tablet (20 mg total) by mouth daily. 09/08/2019 hydroCHLOROthiazide [...] billion capsules by cell capsule mouth daily. OXYGEN THERAPY 2 L/min as 0 needed. [...] by mouth 2 (two) times a day. vit A/vit Take by mouth 0 C/biotin/zinc/copper daily. (GHAK-BZCD-WGRU,VIT A,C-BIOTIN, ORAL) 08/25/2019 10/13/2019 BREO ELLIPTA 200-25 [...] 100 MG tablet BY MOUTH TWICE DAILY 09/07/2019 10/01/2019 oxyCODONE-acetaminophen Take 1 tablet 10 tablet 0 (PERCOCET) 5-325 mg per by mouth tablet every 4 (four) hours as needed. Max Daily Dose: 6 tablets documented as of this encounter Progress Notes * Abdirizak Garcia NP - 09/22/2019 9:47 AM APPRENTICE [facility] Hospitalist - Progress Note Patient Name: Isiah Do Board Account No: [id number] Date of : 1950 Date of Admission: 09/17/2019 7:42 AM Subjective Follow up regarding ureterolithiasis, diabetes The patient's first comments are "I do not have transportation until later tonig ht, I do not want to be leaving at nighttime". She is hopeful to leave tomorrow . She denies any further flank pain. She is having gross hematuria, describes it as "pink lemonade". Discussed this is typical after having a cystoscopy and stent placement. She reports making better dietary choices, feels more positive about her future outlook, is anxious to have more controlled diabetes. Review of Systems Constitutional: Negative for chills and fever. HENT: Negative for congestion and sore throat. Eyes: Negative for discharge and redness. Respiratory: Negative for cough, sputum production, shortness of breath and whee zing. Cardiovascular: Negative for chest pain, palpitations, orthopnea and leg swellin g. Gastrointestinal: Negative for abdominal pain, constipation, diarrhea, nausea an d vomiting. Genitourinary: Positive for hematuria. Negative for dysuria, frequency and urgen cy. Musculoskeletal: Negative for myalgias. Skin: Negative for itching and rash. Neurological: Negative for dizziness, weakness and headaches. All other systems reviewed and are negative. Objective Vital Signs: Temp: 36.9 C (98.4 F) Pulse: 74 Resp: 18 BP: 107/68 SpO2: 95 % Height: 157.5 cm (5' 2") Weight: 101.9 kg (224 lb 10.4 oz) I/O last 24 Hours: In: 680 [P.O.:680] Out: - Physical Exam Vitals signs and nursing note reviewed. Constitutional: General: She is not in acute distress. Appearance: She is well-developed. HENT: Head: Normocephalic and atraumatic. Eyes: Pupils: Pupils are equal, round, and reactive to light. Neck: Musculoskeletal: Normal range of motion. Cardiovascular: Rate and Rhythm: Normal rate and regular rhythm. Pulmonary: Effort: Pulmonary effort is normal. Breath sounds: Normal breath sounds. Abdominal: General: Bowel sounds are normal. There is no distension. Palpations: Abdomen is soft. Musculoskeletal: Normal range of motion. Skin: General: Skin is warm and dry. Capillary Refill: Capillary refill takes less than 2 seconds. Neurological: Mental Status: She is alert and oriented to person, place, and time. Assessment/Plan Ms. Isiah Benítez is a 69 y.o. female who was admitted on 09/17/2019 with Chest p ain. Problems addressed with today's visit include: * Ureteral calculus, left S/P left ureteral stent placement on 08/30 without improvement, cysto with stent a nd litho 09/21 Urology recommends follow-up in 1 to 2 weeks, signed off Cont: Detrol LA, pyridium and Levsin PRN Stop Morphine, can use 12.5mcg Fentanyl for any breakthrough pain Cont Percocet PRN She has no transportation today, Plan to dc home 09/23 Suspected UTI Patient was recently treated for a [place] UTI with pos+ BC 09/17 UA with +LEUs and WBCs >40, no bacteria; UCx with mixed ciera Repeat UA reflex on 09/19 without LEUs/nitrites, WBC or bacteria Urine culture negative, urology recommended stopping antibiotics The patient did receive 5 days of IV Rocephin 2 g Generalized abdominal pain Resolved following cystoscopy procedure Type 2 diabetes mellitus with hyperglycemia, with long-term current use of insul in ([facility]) Uncontrolled, A1c 12.7% Only on Lantus 20 Units SUPERINTENDENT OVERHEAD DISTRIBUTION Just completed a prednisone taper for her COPD this morning Continue Lantus to 25 units nightly, SSI#5 Glucose trends were quite elevated 300s, now 100-200 Endocrinology following, appreciate recommendations SASHA on CPAP Compliant with CPAP at home, has her machine at bedside Essential hypertension Systolic (24hrs), Av , Min:107 , Max:171 Cont her BB and HCTZ Monitor trends, treat pain first COPD (chronic obstructive pulmonary disease) ([facility]) Stable. No s/s of acute exacerbation On O2 as needed SUPERINTENDENT OVERHEAD DISTRIBUTION Reports that she was on a Prednisone taper SUPERINTENDENT OVERHEAD DISTRIBUTION which she completed 09/22 Continue Breo and Duonebs per home regimen Titrate O2 to maintain goal O2 sat >90% IS 10x/hr WA RT following Elevated LFTs Mild Likely 2/2 fatty liver and acute infection RUQ US without acuity, hepatic steatosis Confusion Resolved Chronic respiratory failure (HCC) On chronic O2 at home, only PRN She had been using recently with her COPD flare up Morbid obesity due to excess calories ([facility]) Body mass index is 40.65 kg/m. Complicates all aspects of care Counseled on lifestyle modifications and risk reduction strategies See my orders for additional details regarding this patients treatment plan. Room: [address] [place] [address] Diet: Diet-Consistent Carbohydrate (75 gm) Code Status: Full Code VTE Prevention: Appropriate VTE orders and/or documentation has been completed for this patient. [place] Catheter: N/A Scheduled Meds: amitriptyline 25 mg Oral Nightly atorvastatin 40 mg Oral Nightly cefTRIAXone 2 g Intravenous Daily citalopram 20 mg Oral Daily fluticasone furoate-vilanterol 1 puff Inhalation Daily gabapentin 600 mg Oral TID hydroCHLOROthiazide 25 mg Oral Daily insulin glargine 25 Units Subcutaneous Nightly insulin lispro 3-18 Units Subcutaneous 4 times daily before meals and night ly metoprolol tartrate 100 mg Oral BID predniSONE 20 mg Oral Daily tolterodine 2 mg Oral BID Continuous Infusions: PRN Meds: bisacodyL, cyclobenzaprine, dextrose 50% OR dextrose 10%, docusate sodium, g lucagon OR glucagon, glucose, hyoscyamine, ipratropium-albuterol, magnesium sulfate, melatonin, morphine, oxyCODONE-acetaminophen, phenazopyridine, polyethy carolyn glycol, potassium chloride OR potassium bicarb-citric acid OR potas sium chloride in water, prochlorperazine OR prochlorperazine OR prochlor perazine Abdirizak Garcia NP [facility] Medicine [facility] . ENT[facility] * Arabella Irwin RN ANP - 09/22/2019 8:34 AM APPRENTICE [facility]EP [facility] Urology Progress Note Subjective: Interval History: Discussed procedure and recommended FU. Remains afebrile. C ontinues to have intermittent left flank/abdominal pain. Provided reassurance t hat this is secondary to ureteral stent. REVIEW OF SYSTEMS: Constitutional: negative for fever and chills Respiratory: negative for shortness of breath Cardiovascular: negative for chest pain Gastrointestinal: negative for nausea or vomiting. Objective: Vitals: BP 107/68 (BP Location: Left arm, Patient position: Supine) | Pulse 82 | Temp 36.9 C (98.4 F) (Oral) | Resp 16 | Ht 1.575 m (5' 2") | Wt 101.9 kg (224 lb 10.4 oz) | SpO2 97% | BMI 41.09 kg/m Intake/Output Summary (Last 24 hours) at 09/22/2019 0834 Last data filed at 09/22/2019 0454 Gross per 24 hour Intake 740 ml Output 100 ml Net 640 ml DVT Prophylaxis: Yes Labs: Last 3 CBC Results (within last 7 days): Most Recent Result within the last 7 days Lab Units 09/21/19 0343 09/20/19 0219 09/19/19 1653 WBC TH/uL 10.19 9.32 10.54 HEMOGLOBIN g/dL 12.6 12.2 14.0 HEMATOCRIT % 37 36 43 PLATELET COUNT TH/uL 206 191 197 Last 3 BMP Results (within the last 7 days): Most Recent Result within the last 7 days Lab Units 09/21/19 0343 09/20/19 0219 09/19/19 1653 SODIUM MEQ/L 136 133 134 POTASSIUM MEQ/L 3.9 4.5 5.2 CHLORIDE MEQ/L 96 95* 95* CARBON DIOXIDE MEQ/L 36* 33* 30 BLOOD UREA NITROGEN mg/dL 26 24 24 CREATININE mg/dL 0.8 0.9 1.0 GLUCOSE mg/dL 107* 260* 221* CALCIUM mg/dL 10.0 9.7 10.0 Physical Exam: General appearance: alert and no distress Back: no tenderness to percussion or palpation Lungs: non-labored Abdomen: Soft, Non-distended, tenderness in LLQ Extremities: no edema, redness or tenderness in the calves or thighs Assessment/Plan: Principal Problem: Ureteral calculus, left Active Problems: COPD (chronic obstructive pulmonary disease) ([facility]) Type 2 diabetes mellitus with hyperglycemia, with long-term current use of ins ulin ([facility]) Essential hypertension SASHA on CPAP Morbid obesity due to excess calories ([facility]) Generalized abdominal pain Suspected UTI Chronic respiratory failure ([facility]) Confusion Elevated LFTs LOS: 5 days 1. Left mid ureteral calculus - s/p cystoscopy and left ureteral stent placement with Dr. Aragon on 08/30/2019 - POD #1 s/p cystourethroscopy, left ureteral stent removal, left retrograde colt logram, left ureteroscopy, laser lithotripsy, basket extraction of stone and lef t ureteral stent placement with Dr. Aragon - She would benefit from metabolic evaluation in the future to assess risk facto rs for renal calculi - Continue supportive care for ureteral stent discomfort: Detrol LA, PRN Levsin and Pyridium, bowel regimen, PRN pain medication. Encouraged and reinforced use of PO pain medications - FU with Dr. Aragon in 1-2 weeks for cysto/left ureteral stent removal 2. Recent episode of left [place] pyelonephritis and urosepsis - UCX: mixed ciera; blood cultures: no growth at 5 days. She is currently on IV Rocephin - Cath UCX: No growth; blood cultures on 09/19/19 NGTD - Can d/c ABXs due to negative cultures She is stable for discharge from standpoint. She is hesitant for discharge t lakshmi and asks about d/c tomorrow due to transportation. Will defer to [facility]. Appreciate their assistance. We will sign off on care. Electronically signed by Arabella Irwin 09/22/2019 8:34 AM ENT[facility] Associated attestation - Omar Kidd MD - 09/22/2019 9:57 AM APPRENTICE [facility] THIRD STEP I personally saw and examined the patient. I agree with Arabella Irwin NP's f indings, assessment and plan as documented in the note below. Feeling well today. Worried about going home tonight, due to lack of ride. Ok to discharge from standpoint. Script for norco sent to pharmacy. Omar Kidd * Abdirizak Garcia NP - 09/21/2019 10:38 AM APPRENTICE LINEMAN THIRD STEP [facility] Hospitalist - Progress Note Patient Name: Isiah Do Board Account No: [id number] Date of : 1950 Date of Admission: 09/17/2019 7:42 AM Subjective Follow up regarding diabetes, UTI, ureteral calculus Patient NPO for her cystoscopy. She was planning to see endocrinology outpatien t but hadn't yet made an appointment. Her PCP note says: consult for hypercalce prasanna, hyperthyroidism and uncontrolled diabetes. Review of Systems Constitutional: Negative for chills and fever. HENT: Negative for congestion and sore throat. Eyes: Negative for discharge and redness. Respiratory: Negative for cough, sputum production, shortness of breath and whee zing. Cardiovascular: Negative for chest pain, palpitations, orthopnea and leg swellin g. Gastrointestinal: Negative for abdominal pain, constipation, diarrhea, nausea an d vomiting. Genitourinary: Positive for flank pain. Negative for dysuria, frequency and urge ncy. Musculoskeletal: Negative for myalgias. Skin: Negative for itching and rash. Neurological: Negative for dizziness, weakness and headaches. All other systems reviewed and are negative. Objective Vital Signs: Temp: 36.7 C (98.1 F) Pulse: 65 Resp: 16 BP: 136/81 SpO2: 93 % Height: 157.5 cm (5' 2") Weight: 100.8 kg (222 lb 3.6 oz) I/O last 24 Hours: In: - Out: 1200 [Urine:1200] Physical Exam Vitals signs and nursing note reviewed. Constitutional: General: She is not in acute distress. Appearance: She is well-developed. HENT: Head: Normocephalic and atraumatic. Eyes: Pupils: Pupils are equal, round, and reactive to light. Neck: Musculoskeletal: Normal range of motion. Cardiovascular: Rate and Rhythm: Normal rate and regular rhythm. Pulmonary: Effort: Pulmonary effort is normal. Breath sounds: Normal breath sounds. Abdominal: General: Bowel sounds are normal. There is no distension. Palpations: Abdomen is soft. Tenderness: There is tenderness in the left lower quadrant. There is left CVA tenderness. Musculoskeletal: Normal range of motion. Skin: General: Skin is warm and dry. Capillary Refill: Capillary refill takes less than 2 seconds. Neurological: Mental Status: She is alert and oriented to person, place, and time. Assessment/Plan Ms. Isiah Benítez is a 69 y.o. female who was admitted on 09/17/2019 with Chest p ain. Problems addressed with today's visit include: * Ureteral calculus, left CT abdomen showed left ureteral stent and calculus. S/p left ureteral stent placement on 08/30 Urology following, appreciate assist Continue tolterodine Continue PRN PO Percocet and IV Morphine PRN Levsin and Pyridium Follow urine and blood cultures Ureteroscopy with laser lithotripsy and stent exchange this afternoon Tentatively plan for discharge 09/22 Confusion Brief episode of confusion with associated diaphoresis yesterday afternoon. Blo od glucose was checked and was 190. Patient was able to follow commands but rep orted that she felt "like she was not there." Symptoms resolved quickly. Now resolved CT head without acute process per preliminary radiology report Troponins negative x3, EKG showed sinus rhythm without acute ST changes Chest x-ray showed atelectasis Monitor Currently being treated for UTI, plans for ureteral stone extraction later this week Blood and urine cultures pending Suspected UTI Patient was recently treated for a [place] UTI. 09/17 UA with +LEUs and WBCs >40, no bacteria; UCx with mixed ciera Repeat UA reflex on 09/19 without LEUs/nitrites, WBC or bacteria Continue IV Ceftriaxone Follow repeat urine culture Generalized abdominal pain Improved with medication CT abdomen showed left-sided ureteral calculus. S/p ureteral stent on 08/30 See above plan for ureteral calculus Pain control with PO Percocet and IV Morphine Type 2 diabetes mellitus with hyperglycemia, with long-term current use of insul in ([facility]) Last A1c 11.0 in May 2019 Only on Lantus 20 Units SUPERINTENDENT OVERHEAD DISTRIBUTION BG trends 200-300s Continue Lantus to 25 units nightly Monitor BG ac&hs SSI to level 5 Hypoglycemia protocol, CC diet Consult endocrinology, appreciate recommendations Add on A1c SASHA on CPAP Compliant with CPAP at home Continue home CPAP regimen-if family able to bring in O2 as needed Essential hypertension BP improved today, 112/75 Continue HCTZ and Metoprolol Monitor trends COPD (chronic obstructive pulmonary disease) ([facility]) Stable. No s/s of acute exacerbation On O2 as needed SUPERINTENDENT OVERHEAD DISTRIBUTION Reports that she was on a Prednisone taper SUPERINTENDENT OVERHEAD DISTRIBUTION and had 4 more days of 20mg Continue Breo and Duonebs per home regimen Titrate O2 to maintain goal O2 sat >90% Continue Prednisone 20mg daily x4 days (restarted on 09/19) IS 10x/hr WA Elevated LFTs Improving Probably 2/2 fatty liver and acute infection RUQ US without acuity, hepatic steatosis Chronic respiratory failure (HCC) On chronic O2 prn CXR showed atelectasis Monitor Titrate O2 as needed for goal sat >90% IS 10x/hr WA Morbid obesity due to excess calories ([facility]) Body mass index is 40.65 kg/m. Complicates all aspects of care Counseled on lifestyle modifications and risk reduction strategies See my orders for additional details regarding this patients treatment plan. Room: [facility] [place] [facility]/N* Diet: Diet NPO Code Status: Full Code VTE Prevention: Appropriate VTE orders and/or documentation has been completed for this patient. Ballard Catheter: N/A Scheduled Meds: [OCT Hold] amitriptyline 25 mg Oral Nightly [OCT Hold] atorvastatin 40 mg Oral Nightly [Oct] cefTRIAXone 2 g Intravenous Daily [Oct] citalopram 20 mg Oral Daily [Oct] fluticasone furoate-vilanterol 1 puff Inhalation Daily [Oct] gabapentin 600 mg Oral TID [Oct] hydroCHLOROthiazide 25 mg Oral Daily [Oct] insulin glargine 25 Units Subcutaneous Nightly [Oct] insulin lispro 3-18 Units Subcutaneous 4 times daily before meal s and nightly [Oct] metoprolol tartrate 100 mg Oral BID [Oct] predniSONE 20 mg Oral Daily [Oct] tolterodine 2 mg Oral BID Continuous Infusions: lactated Ringers 50 mL/hr (09/21/19 1352) PRN Meds: [OCT Hold] bisacodyL, [OCT Hold] cyclobenzaprine, [Oct] dextrose 50% OR [Oct] dextrose 10%, [Oct] docusate sodium, [Oct] glucagon OR [Oct] glucagon, [Oct] glucose, [OCT Hold] hyoscyamine, [OCT Hold] ipr atropium-albuterol, [OCT Hold] magnesium sulfate, [OCT Hold] melatonin, [Oct d] morphine, [Oct] oxyCODONE-acetaminophen, [OCT Hold] phenazopyridine, [ R Hold] polyethylene glycol, [OCT Hold] potassium chloride OR [Oct] pot assium bicarb-citric acid OR [Oct] potassium chloride in water, [Oct ld] prochlorperazine OR [Oct] prochlorperazine OR [Oct] prochl orperazine Abdirizak Garcia NP [facility] . ENTICE LINEMAN THIRD STEP * Arabella Irwin RN ANP - 09/21/2019 9:02 AM APPRENTICE LINEMAN THIRD STEP [facility] Urology Progress Note Subjective: Interval History: Resting in bed. Intermittent abdominal/left flank pain tori ged with IV/PO Morphine/Percocet. Afebrile for >48 hours. REVIEW OF SYSTEMS: Constitutional: negative for fever and chills Respiratory: negative for shortness of breath Cardiovascular: negative for chest pain Gastrointestinal: negative for nausea or vomiting. Objective: Vitals: BP 121/79 (BP Location: Left arm, Patient position: Sitting) | Pulse 71 | Temp 36.8 C (98.3 F) (Oral) | Resp 18 | Ht 1.575 m (5' 2") | Wt 100.8 kg (222 lb 3.6 oz) | SpO2 96% | BMI 40.65 kg/m Intake/Output Summary (Last 24 hours) at 09/21/2019 0902 Last data filed at 09/21/2019 0333 Gross per 24 hour Intake Output 1750 ml Net -1750 ml DVT Prophylaxis: Yes Labs: Last 3 CBC Results (within last 7 days): Most Recent Result within the last 7 days Lab Units 09/21/19 0343 09/20/1921809/19/19 1653 WBC TH/uL 10.19 9.32 10.54 HEMOGLOBIN g/dL 12.6 12.2 14.0 HEMATOCRIT % 37 36 43 PLATELET COUNT TH/uL 206 191 197 Last 3 BMP Results (within the last 7 days): Most Recent Result within the last 7 days Lab Units 09/21/19 0343 09/20/19 02109/19/19 1653 SODIUM MEQ/L 136 133 134 POTASSIUM MEQ/L 3.9 4.5 5.2 CHLORIDE MEQ/L 96 95* 95* CARBON DIOXIDE MEQ/L 36* 33* 30 BLOOD UREA NITROGEN mg/dL 26 24 24 CREATININE mg/dL 0.8 0.9 1.0 GLUCOSE mg/dL 107* 260* 221* CALCIUM mg/dL 10.0 9.7 10.0 Physical Exam: General appearance: alert and no distress Back: no tenderness to percussion or palpation Lungs: non-labored Abdomen: Soft, Non-distended, generalized abdominal tenderness (worse in LLQ) Extremities: no edema, redness or tenderness in the calves or thighs Assessment/Plan: Principal Problem: Ureteral calculus, left Active Problems: COPD (chronic obstructive pulmonary disease) ([facility]) Type 2 diabetes mellitus with hyperglycemia, with long-term current use of ins ulin ([facility]) Essential hypertension SASHA on CPAP Morbid obesity due to excess calories ([facility]) Generalized abdominal pain Suspected UTI Chronic respiratory failure ([facility]) Confusion Elevated LFTs LOS: 4 days 1. Left mid ureteral calculus - s/p cystoscopy and left ureteral stent placement with Dr. Aragon on 08/30/2019 - Maintain NPO status - She is scheduled for cystoscopy, left RGP, left ureteroscopy with possible las er lithotripsy/stone extraction, and left ureteral stent exchange with Dr. Aguirre ek at 1400 - She would benefit from metabolic evaluation in the future to assess risk facto rs for renal calculi - Continue supportive care for ureteral stent discomfort: Detrol LA, PRN Levsin and Pyridium, bowel regimen, PRN pain medication 2. Recent episode of left [place] pyelonephritis and urosepsis - UCX: mixed ciera; blood cultures: no growth at 5 days. She is currently on IV Rocephin - Cath UCX: No growth; blood cultures on 09/19/19 NGTD Anticipate discharge tomorrow if she remains medically stable. Electronically signed by Arablela Irwin 09/21/2019 9:02 AM ENTICE LINEMAN THIRD STEP Associated attestation - Janet Aragon MD - 09/21/2019 2:40 PM APPRENTICE LINEMAN THIRD STEP Pt seen, discussed procedure with her, she v/u and wishes to proceed. * Arabella Irwin RN ANP - 09/20/2019 9:01 AM APPRENTICE LINEMAN THIRD STEP [facility] Urology Progress Note Subjective: Interval History: Intermittent abdominal/left flank pain. Afebrile for >24 hours. Chart reviewed. Did experience confusion towards end of dayshift yes terday. She had chest xray, CT head, and abdominal U/S. REVIEW OF SYSTEMS: Constitutional: negative for fever and chills Respiratory: negative for shortness of breath Cardiovascular: negative for chest pain Gastrointestinal: negative for nausea or vomiting. Objective: Vitals: BP 112/75 (BP Location: Right arm, Patient position: Sitting) | Pulse 7 9 | Temp 36.4 C (97.5 F) (Oral) | Resp 16 | Ht 1.575 m (5' 2") | Wt 101. 8 kg (224 lb 6.9 oz) | SpO2 98% | BMI 41.05 kg/m Intake/Output Summary (Last 24 hours) at 09/20/2019 0901 Last data filed at 09/20/2019 0752 Gross per 24 hour Intake 926 ml Output 950 ml Net -24 ml DVT Prophylaxis: Yes Labs: Last 3 CBC Results (within last 7 days): Most Recent Result within the last 7 days Lab Units 09/20/19 02109/19/19 1653 09/18/19 0949 WBC TH/uL 9.32 10.54 8.64 HEMOGLOBIN g/dL 12.2 14.0 13.4 HEMATOCRIT % 36 43 38 PLATELET COUNT TH/uL 191 197 239 Last 3 BMP Results (within the last 7 days): Most Recent Result within the last 7 days Lab Units 09/20/19 02109/19/19 1653 09/18/19 0806 SODIUM MEQ/L 133 134 133 POTASSIUM MEQ/L 4.5 5.2 3.7 CHLORIDE MEQ/L 95* 95* 99 CARBON DIOXIDE MEQ/L 33* 30 29 BLOOD UREA NITROGEN mg/dL 24 24 18 CREATININE mg/dL 0.9 1.0 0.8 GLUCOSE mg/dL 260* 221* 246* CALCIUM mg/dL 9.7 10.0 8.9 Physical Exam: General appearance: alert and no distress Back: no tenderness to percussion or palpation Lungs: non-labored Abdomen: Soft, Non-distended, generalized abdominal tenderness (worse in LLQ) Extremities: no edema, redness or tenderness in the calves or thighs Assessment/Plan: Principal Problem: Ureteral calculus, left Active Problems: COPD (chronic obstructive pulmonary disease) ([facility]) Type 2 diabetes mellitus with hyperglycemia, with long-term current use of ins ulin (HCC) Essential hypertension SASHA on CPAP Morbid obesity due to excess calories (HCC) Generalized abdominal pain Suspected UTI Chronic respiratory failure (HCC) LOS: 3 days 1. Left mid ureteral calculus - s/p cystoscopy and left ureteral stent placement with Dr. Aragon on 08/30/2019 - She is tentatively scheduled for cystoscopy, left RGP, left ureteroscopy with possible laser lithotripsy/stone extraction, and left ureteral stent exchange wi Dr. Aragon 09/21/19 at 1400 - She would benefit from metabolic evaluation in the future to assess risk facto rs for renal calculi - Continue supportive care for ureteral stent discomfort: Detrol LA, PRN Levsin and Pyridium, bowel regimen, PRN pain medication 2. Recent episode of left [place] pyelonephritis and urosepsis - UCX: mixed ciera; blood cultures NGTD. She is currently on IV Rocephin - FU on updated cath UA and blood cultures Electronically signed by Arabella Irwin 09/20/2019 9:01 AM ENTICE LINEMAN THIRD STEP * Hope Cox, CITY DESIGNER - 09/20/2019 8:55 AM APPRENTICE LINEMAN THIRD STEP [facility] Hospitalist - Progress Note Patient Name: Isiah Do Board Account No: [id number] Date of : 1950 Date of Admission: 09/17/2019 7:42 AM Subjective Follow up regarding abdominal pain Had a brief episode of confusion yesterday, stated "I felt like I was not there. " Patient was diaphoretic at the time and having chills. Patient reports that she feels much better this morning and slept well overnight. She appears back t o her baseline. Preliminary CT head results without acute process. Chest x-ray showed atelectasis and I have asked her to use an incentive spirometer at least 10 times an hour while she is awake. Patient reports pain well controlled on c urrent med regimen. She denies fevers or chills today. She denies chest pain, dyspnea, cough, nausea, vomiting, or dysuria. Tentative plans for stone removal on 09/21 per urology. Review of Systems Constitutional: Negative for chills, fever and malaise/fatigue. Respiratory: Positive for cough. Negative for sputum production and shortness of breath. Cardiovascular: Negative for chest pain, palpitations and leg swelling. Gastrointestinal: Positive for abdominal pain. Negative for constipation, diarrh ea, nausea and vomiting. Genitourinary: Negative. Neurological: Negative. Negative for dizziness, weakness and headaches. Psychiatric/Behavioral: Negative. Objective Vital Signs: Temp: 36.4 C (97.5 F) Pulse: 79 Resp: 16 BP: 112/75 SpO2: 98 % Height: 157.5 cm (5' 2") Weight: 101.8 kg (224 lb 6.9 oz) I/O last 24 Hours: In: 236 [P.O.:236] Out: 250 [Urine:250] Physical Exam Vitals signs and nursing note reviewed. Constitutional: General: She is not in acute distress. Appearance: Normal appearance. She is not ill-appearing. Eyes: Extraocular Movements: Extraocular movements intact. Conjunctiva/sclera: Conjunctivae normal. Cardiovascular: Rate and Rhythm: Normal rate and regular rhythm. Pulses: Normal pulses. Heart sounds: Normal heart sounds. No murmur. No friction rub. No gallop. Pulmonary: Effort: Pulmonary effort is normal. No respiratory distress. Breath sounds: Normal breath sounds. No wheezing or rhonchi. Abdominal: General: Abdomen is flat. Bowel sounds are normal. There is no distension. Palpations: Abdomen is soft. Tenderness: There is no tenderness. There is no guarding or rebound. Musculoskeletal: Normal range of motion. General: No swelling. Skin: General: Skin is warm and dry. Capillary Refill: Capillary refill takes less than 2 seconds. Neurological: Mental Status: She is alert and oriented to person, place, and time. Mental s tatus is at baseline. Psychiatric: Mood and Affect: Mood normal. Behavior: Behavior normal. I have personally reviewed the patient's vital signs, laboratory/pathology/cultu re results (as indicated), imaging studies (results were not discussed with the performing provider), ECG, telemetry, current inpatient medications, [employer] consultant notes and technician support association notes with pertainent findings noted within the assessme nt/plan. I have personally spoken with the patient, another physican and nursing staff regarding this patient's case. Assessment/Plan Ms. Isiah Benítez is a 69 y.o. female who was admitted on 09/17/2019 with Chest p ain. Problems addressed with today's visit include: * Ureteral calculus, left CT abdomen showed left ureteral stent and calculus. S/p left ureteral stent placement on 08/30 Urology following, appreciate assist Continue tolterodine Continue PRN PO Percocet and IV Morphine PRN Levsin and Pyridium Follow urine and blood cultures Tentative plans for possible ureteroscopy with laser lithotripsy and stent excha nge on 09/21 Confusion Brief episode of confusion with associated diaphoresis yesterday afternoon. Blo od glucose was checked and was 190. Patient was able to follow commands but rep orted that she felt "like she was not there." Symptoms resolved quickly. Appears at baseline today. CT head without acute process per preliminary radiology report Troponins negative x3, EKG showed sinus rhythm without acute ST changes Chest x-ray showed atelectasis Monitor Currently being treated for UTI, plans for ureteral stone extraction later this week Blood and urine cultures pending Suspected UTI Patient was recently treated for a [place] UTI. 09/17 UA with +LEUs and WBCs >40, no bacteria; UCx with mixed ciera Repeat UA reflex on 09/19 without LEUs/nitrites, WBC or bacteria Continue IV Ceftriaxone Follow repeat urine culture Generalized abdominal pain Improved with medication CT abdomen showed left-sided ureteral calculus. S/p ureteral stent on 08/30 See above plan for ureteral calculus Pain control with PO Percocet and IV Morphine SASHA on CPAP Compliant with CPAP at home Continue home CPAP regimen-if family able to bring in O2 as needed Essential hypertension BP improved today, 112/75 Continue HCTZ and Metoprolol Monitor trends Type 2 diabetes mellitus with hyperglycemia, with long-term current use of insul in ([facility]) Last A1c 11.0 in May 2019 Only on Lantus 20 Units SUPERINTENDENT OVERHEAD DISTRIBUTION BG trends 200-300s Continue Lantus to 25 units nightly Monitor BG ac&hs SSI to level 5 Hypoglycemia protocol, CC diet COPD (chronic obstructive pulmonary disease) ([facility]) Stable. No s/s of acute exacerbation On O2 as needed SUPERINTENDENT OVERHEAD DISTRIBUTION Reports that she was on a Prednisone taper SUPERINTENDENT OVERHEAD DISTRIBUTION and had 4 more days of 20mg Continue Breo and Duonebs per home regimen Titrate O2 to maintain goal O2 sat >90% Continue Prednisone 20mg daily x4 days (restarted on 09/19) IS 10x/hr WA Elevated LFTs Trending down, ALT 119, alk phos 164, AST 58 Uncertain etiology. ? Due to acute infection Right upper quadrant ultrasound with diffuse hepatic steatosis without focal hep atic lesion, and cholecystectomy Monitor Chronic respiratory failure (HCC) On chronic O2 prn CXR showed atelectasis Monitor Titrate O2 as needed for goal sat >90% IS 10x/hr WA Morbid obesity due to excess calories (HCC) Complicates all aspects of care Strongly recommend dietary changes, lifestyle changes and weight loss See my orders for additional details regarding this patients treatment plan. Room: [address] [place] [address] Diet: Diet-Consistent Carbohydrate (75 gm) Code Status: Full Code VTE Prevention: Appropriate VTE orders and/or documentation has been completed for this patient. Ballard Catheter: N/A Scheduled Meds: amitriptyline 25 mg Oral Nightly atorvastatin 40 mg Oral Nightly cefTRIAXone 2 g Intravenous Daily citalopram 20 mg Oral Daily fluticasone furoate-vilanterol 1 puff Inhalation Daily gabapentin 600 mg Oral TID hydroCHLOROthiazide 25 mg Oral Daily insulin glargine 25 Units Subcutaneous Nightly insulin lispro 3-18 Units Subcutaneous 4 times daily before meals and night ly metoprolol tartrate 100 mg Oral BID predniSONE 20 mg Oral Daily tolterodine 2 mg Oral BID Continuous Infusions: PRN Meds: bisacodyL, cyclobenzaprine, dextrose 50% OR dextrose 10%, docusate sodium, g lucagon OR glucagon, glucose, hyoscyamine, ipratropium-albuterol, magnesium sulfate, melatonin, morphine, oxyCODONE-acetaminophen, phenazopyridine, polyethy carolyn glycol, potassium chloride OR potassium bicarb-citric acid OR potas sium chloride in water, prochlorperazine OR prochlorperazine OR prochlor perazine Hope Cox, SHILOH [facility] Medicine Division . ENTICE LINEMAN THIRD STEP * Hope Cox APRN - 09/19/2019 12:08 PM APPRENTICE LINEMAN THIRD STEP [facility] Hospitalist - Progress Note Patient Name: Isiah Do Board Account No: [id number] Date of : 1950 Date of Admission: 09/17/2019 7:42 AM Subjective Follow up regarding diabetes, abdominal pain Reports nausea and chills today. No documented fevers. Requesting IV morphine b e given first in place of oral Percocet, states "it takes too long for the Perco cet to work if I take that first." Blood glucose trends 200-300s. Patient repo rts that she is only on Lantus at home for diabetes management. She reports patrick t she was on a prednisone taper prior to coming to the hospital and that she had 4 days of 20 mg tablets left to take. Suspect prednisone may be contributing t o elevated blood sugars. No hypoglycemia noted. Patient reports that urology p lans to take her for a procedure to remove the stone later this week if her repe at urine reflex shows adequate control of infection. Review of Systems Constitutional: Positive for chills. Negative for fever and malaise/fatigue. Respiratory: Positive for cough and sputum production. Negative for shortness of breath. Cardiovascular: Negative for chest pain, palpitations and leg swelling. Gastrointestinal: Positive for abdominal pain and nausea. Negative for constipat ion, diarrhea and vomiting. Genitourinary: Negative. Neurological: Negative. Negative for dizziness, weakness and headaches. Psychiatric/Behavioral: Negative. Objective Vital Signs: Temp: 36.7 C (98 F) Pulse: 78 Resp: 18 BP: (!) 143/94 SpO2: 97 % Height: 157.5 cm (5' 2") Weight: 94.9 kg (209 lb 3.5 oz) I/O last 24 Hours: In: 1660 [P.O.:1660] Out: 750 [Urine:750] Physical Exam Vitals signs and nursing note reviewed. Constitutional: General: She is not in acute distress. Appearance: Normal appearance. She is not ill-appearing. Eyes: Extraocular Movements: Extraocular movements intact. Conjunctiva/sclera: Conjunctivae normal. Cardiovascular: Rate and Rhythm: Normal rate and regular rhythm. Pulses: Normal pulses. Heart sounds: Normal heart sounds. No murmur. No friction rub. No gallop. Pulmonary: Effort: Pulmonary effort is normal. No respiratory distress. Breath sounds: Normal breath sounds. No wheezing or rhonchi. Abdominal: General: Abdomen is flat. Bowel sounds are normal. There is no distension. Palpations: Abdomen is soft. Tenderness: There is no tenderness. There is no guarding or rebound. Musculoskeletal: Normal range of motion. General: No swelling. Skin: General: Skin is warm and dry. Capillary Refill: Capillary refill takes less than 2 seconds. Neurological: Mental Status: She is alert and oriented to person, place, and time. Mental s tatus is at baseline. Psychiatric: Mood and Affect: Mood normal. Behavior: Behavior normal. I have personally reviewed the patient's vital signs, laboratory/pathology/cultu re results (as indicated), current inpatient medications, [employer] consultant notes and s upport staff notes with pertainent findings noted within the assessment/plan. I have personally spoken with the patient and nursing staff regarding this patient 's case. Assessment/Plan Ms. Isiah Benítez is a 69 y.o. female who was admitted on 09/17/2019 with Chest p ain. Problems addressed with today's visit include: * Ureteral calculus, left CT abdomen showed left ureteral stent and calculus. S/p left ureteral stent placement on 08/30 Urology following, appreciate assist Continue tolterodine Continue PRN PO Percocet and IV Morphine PRN Levsin and Pyridium Plans for possible ureteroscopy with laser lithotripsy and stent exchange Suspected UTI Patient was recently treated for a [place] UTI. 09/17 UA with +LEUs and WBCs >40, no bacteria; UCx with mixed ciera Continue IV Ceftriaxone for now Repeat UA reflex Generalized abdominal pain Patient reports generalized abdominal pain but this is worse in the left lower q uadrant. CT abdomen showed left-sided ureteral calculus. S/p ureteral stent on 08/30 See above plan for ureteral calculus Pain control with PO Percocet and IV Morphine SASHA on CPAP Compliant with CPAP at home Continue home CPAP regimen Essential hypertension Systolic (24hrs), Av , Min:129 , Max:145 Continue Metoprolol Resume home dose HCTZ daily Monitor trends Type 2 diabetes mellitus with hyperglycemia, with long-term current use of insul in (HCC) Last A1c 11.0 in May 2019 BG trends 200-300s Increase Lantus to 25 units nightly Monitor BG ac&hs Increase SSI to level 4 Hypoglycemia protocol, CC diet COPD (chronic obstructive pulmonary disease) ([facility]) Stable. No s/s of acute exacerbation On O2 as needed SUPERINTENDENT OVERHEAD DISTRIBUTION Reports that she was on a Prednisone taper SUPERINTENDENT OVERHEAD DISTRIBUTION and had 4 more days of 20mg Continue Breo and Duonebs per home regimen Titrate O2 to maintain goal O2 sat >90% Resume Prednisone 20mg daily x4 days Chronic respiratory failure (HCC) On chronic O2 prn Monitor Titrate O2 as needed for goal sat >90% Morbid obesity due to excess calories ([facility]) Complicates all aspects of care Strongly recommend dietary changes, lifestyle changes and weight loss See my orders for additional details regarding this patients treatment plan. Room: [address] [place] [address] Diet: Diet-Consistent Carbohydrate (75 gm) Code Status: Full Code VTE Prevention: Appropriate VTE orders and/or documentation has been completed for this patient. Ballard Catheter: N/A Scheduled Meds: amitriptyline 25 mg Oral Nightly atorvastatin 40 mg Oral Nightly cefTRIAXone 2 g Intravenous Daily citalopram 20 mg Oral Daily fluticasone furoate-vilanterol 1 puff Inhalation Daily gabapentin 600 mg Oral TID [START ON 09/20/2019] hydroCHLOROthiazide 25 mg Oral Daily insulin glargine 24 Units Subcutaneous Nightly insulin lispro 2-12 Units Subcutaneous 4 times daily before meals and night ly metoprolol tartrate 100 mg Oral BID predniSONE 20 mg Oral Daily tolterodine 2 mg Oral BID Continuous Infusions: PRN Meds: bisacodyL, cyclobenzaprine, dextrose 50% OR dextrose 10%, docusate sodium, g lucagon OR glucagon, glucose, hyoscyamine, ipratropium-albuterol, magnesium sulfate, melatonin, morphine, oxyCODONE-acetaminophen, phenazopyridine, polyethy carolyn glycol, potassium chloride OR potassium bicarb-citric acid OR potas sium chloride in water, prochlorperazine OR prochlorperazine OR prochlor perazine Hope Cox APRN [facility] . ENTICE LINEMAN THIRD STEP * Arabella Irwin RN ANP - 09/19/2019 9:41 AM APPRENTICE LINEMAN THIRD STEP [facility] Urology Progress Note Subjective: Interval History: Intermittent abdominal/left flank pain. Low grade fever 99. 3 at 1534 yesterday but otherwise has remained afebrile. She is eager to procee d with next procedure to remove kidney stone. REVIEW OF SYSTEMS: Constitutional: negative for fever and chills Respiratory: negative for shortness of breath Cardiovascular: negative for chest pain Gastrointestinal: negative for nausea or vomiting. Objective: Vitals: BP (!) 144/84 (BP Location: Left arm) | Pulse 83 | Temp 36.4 C (97.6 F) (Oral) | Resp 16 | Ht 1.575 m (5' 2") | Wt 94.9 kg (209 lb 3.5 oz) | S pO2 91% | BMI 38.27 kg/m Intake/Output Summary (Last 24 hours) at 09/19/2019 0941 Last data filed at 09/19/2019 0847 Gross per 24 hour Intake 2380 ml Output 1550 ml Net 830 ml DVT Prophylaxis: Yes Labs: Last 3 CBC Results (within last 7 days): Most Recent Result within the last 7 days Lab Units 09/18/19 0949 09/17/19 0838 WBC TH/uL 8.64 12.83* HEMOGLOBIN g/dL 13.4 15.2* HEMATOCRIT % 38 43 PLATELET COUNT TH/uL 239 294 Last 3 BMP Results (within the last 7 days): Most Recent Result within the last 7 days Lab Units 09/18/19 0806 09/17/19 0838 SODIUM MEQ/L 133 132* POTASSIUM MEQ/L 3.7 3.8 CHLORIDE MEQ/L 99 93* CARBON DIOXIDE MEQ/L 29 28 BLOOD UREA NITROGEN mg/dL 18 35* CREATININE mg/dL 0.8 1.0 GLUCOSE mg/dL 246* 425* CALCIUM mg/dL 8.9 9.3 Physical Exam: General appearance: alert and no distress Back: no tenderness to percussion or palpation Lungs: non-labored Abdomen: Soft, Non-distended, generalized abdominal tenderness (worse in LLQ) Extremities: no edema, redness or tenderness in the calves or thighs Assessment/Plan: Principal Problem: Ureteral calculus, left Active Problems: COPD (chronic obstructive pulmonary disease) ([facility]) Type 2 diabetes mellitus with hyperglycemia, with long-term current use of ins ulin ([facility]) Essential hypertension SASHA on CPAP Morbid obesity due to excess calories ([facility]) Generalized abdominal pain Suspected UTI Chronic respiratory failure ([facility]) LOS: 2 days 1. Left mid ureteral calculus - s/p cystoscopy and left ureteral stent placement with Dr. Aragon on 08/30/2019 - If urine cultures are negative, consider proceeding towards end of week - She would benefit from metabolic evaluation in the future to assess risk facto rs for renal calculi - Continue supportive care for ureteral stent discomfort: Detrol LA, PRN Levsin and Pyridium, bowel regimen, PRN pain medication 2. Recent episode of left Cheyenne pyelonephritis and urosepsis - UCX: mixed ciera; blood cultures NGTD. She is currently on IV Rocephin - Obtain cath UA and urine culture. She is in agreement. If this is negative, can proceed with endoscopic treatment Electronically signed by Arabella Irwin 09/19/2019 9:41 AM ENTICE LINEMAN THIRD STEP * Hope Cox APRN - 09/18/2019 11:24 AM APPRENTICE LINEMAN THIRD STEP [facility] Hospitalist - Progress Note Patient Name: Isiah Do Board Account No: [id number] Date of : 1950 Date of Admission: 09/17/2019 7:42 AM Subjective Follow up regarding abdominal pain No acute events reported overnight. Reports abdominal pain about the same, well controlled with current pain med regimen. Tells me that she may need another p rocedure later this week per urology recommendations. Denies fevers, chills, jin sea or vomiting. Tolerating PO without difficulty. BG trends 200s, no hypoglycem ia. Review of Systems Constitutional: Negative for chills, fever and malaise/fatigue. Respiratory: Negative for cough and shortness of breath. Cardiovascular: Negative. Negative for chest pain, palpitations and leg swellin g. Gastrointestinal: Positive for abdominal pain and nausea. Negative for constipat ion, diarrhea and vomiting. Genitourinary: Negative. Musculoskeletal: Negative. Neurological: Negative. Psychiatric/Behavioral: Negative. Objective Vital Signs: Temp: 37.1 C (98.7 F) Pulse: 73 Resp: 18 BP: 112/74 SpO2: 96 % Height: 157.5 cm (5' 2") Weight: 94.2 kg (207 lb 10.8 oz) I/O last 24 Hours: In: 780 [P.O.:780] Out: 1400 [Urine:1400] Physical Exam Vitals signs and nursing note reviewed. Constitutional: General: She is not in acute distress. Appearance: Normal appearance. She is not ill-appearing. Eyes: Extraocular Movements: Extraocular movements intact. Conjunctiva/sclera: Conjunctivae normal. Cardiovascular: Rate and Rhythm: Normal rate and regular rhythm. Pulses: Normal pulses. Heart sounds: Normal heart sounds. No murmur. No friction rub. No gallop. Pulmonary: Effort: Pulmonary effort is normal. No respiratory distress. Breath sounds: Normal breath sounds. No wheezing or rhonchi. Abdominal: General: Abdomen is flat. Bowel sounds are normal. There is no distension. Palpations: Abdomen is soft. Tenderness: There is no tenderness. There is no guarding or rebound. Musculoskeletal: Normal range of motion. General: No swelling. Skin: General: Skin is warm and dry. Capillary Refill: Capillary refill takes less than 2 seconds. Neurological: Mental Status: She is alert and oriented to person, place, and time. Mental s tatus is at baseline. Psychiatric: Mood and Affect: Mood normal. Behavior: Behavior normal. I have personally reviewed the patient's vital signs, laboratory/pathology/cultu re results (as indicated), imaging studies (results were not discussed with the performing provider), ECG, current inpatient medications, [employer] consultant notes, supp ort staff notes, prior admission/outpatient notes and prior to admission medicat ions with pertainent findings noted within the assessment/plan. I have personall y spoken with the patient and nursing staff regarding this patient's case. Assessment/Plan Ms. Isiah Benítez is a 69 y.o. female who was admitted on 09/17/2019 with abdomin al pain. Problems addressed with today's visit include: * Ureteral calculus, left CT abdomen showed left ureteral stent and calculus. S/p left ureteral stent placement on 08/30 Urology following, appreciate assist Continue tolterodine DC IV fentanyl Add Percocet 1-2 tabs Q6 PRN IV Morphine Q4 for breakthrough pain PRN Levsin and Pyridium Suspected UTI Patient was recently treated for a [place] UTI. UA with +LEUs and WBCs >40, no bacteria Continue IV Ceftriaxone for now Follow blood and urine cultures Generalized abdominal pain Patient reports generalized abdominal pain but this is worse in the left lower q uadrant. CT abdomen showed left-sided ureteral calculus. S/p ureteral stent on 08/30 See above plan for ureteral calculus Pain control with PO Percocet and IV Morphine SASHA on CPAP Compliant with CPAP at home Continue home CPAP regimen Essential hypertension Systolic (24hrs), Av , Min:110 , Max:148 Continue Metoprolol Hold HCTZ for now until taking adequate PO Monitor trends Type 2 diabetes mellitus with hyperglycemia, with long-term current use of insul in ([facility]) Last A1c 11.0 in May 2019 BG trends 200s Increase Lantus to 22 Units nightly Monitor BG ac&hs SSI level 2 Hypoglycemia protocol, CC diet COPD (chronic obstructive pulmonary disease) (HCC) Stable. No s/s of acute exacerbation On O2 as needed SUPERINTENDENT OVERHEAD DISTRIBUTION Continue Breo and Duonebs per home regimen Titrate O2 to maintain goal O2 sat >90% Chronic respiratory failure (HCC) On chronic O2 prn Monitor Titrate O2 as needed for goal sat >90% Morbid obesity due to excess calories (HCC) Complicates all aspects of care Strongly recommend dietary changes, lifestyle changes and weight loss See my orders for additional details regarding this patients treatment plan. Room: [facility]/[address] [place] [address] Diet: Diet-Consistent Carbohydrate (75 gm) Code Status: Full Code VTE Prevention: Appropriate VTE orders and/or documentation has been completed for this patient. Ballard Catheter: N/A Scheduled Meds: amitriptyline 25 mg Oral Nightly atorvastatin 40 mg Oral Nightly cefTRIAXone 2 g Intravenous Daily citalopram 20 mg Oral Daily fluticasone furoate-vilanterol 1 puff Inhalation Daily gabapentin 600 mg Oral TID insulin glargine 22 Units Subcutaneous Nightly insulin lispro 1-6 Units Subcutaneous 4 times daily before meals and nightl y metoprolol tartrate 100 mg Oral BID tolterodine 2 mg Oral BID Continuous Infusions: PRN Meds: bisacodyL, cyclobenzaprine, dextrose 50% OR dextrose 10%, docusate sodium, g lucagon OR glucagon, glucose, hyoscyamine, ipratropium-albuterol, magnesium sulfate, melatonin, morphine, oxyCODONE-acetaminophen, phenazopyridine, polyethy carolyn glycol, potassium chloride OR potassium bicarb-citric acid OR potas sium chloride in water, prochlorperazine OR prochlorperazine OR prochlor perazine Hope Cox APRN [facility] . ENTICE LINEMAN THIRD STEP documented in this encounter H&P Notes * Lashae Crenshaw MD - 09/17/2019 12:49 PM APPRENTICE LINEMAN THIRD STEP [facility] Hospitalist - History & Physical Patient Name: Isiah Benítez Account No: [id number] Date of : 1950 Date of Admission: 09/17/2019 7:42 AM Primary Care Physician: Ebony Sharp MD; Subjective Chief Complaint: Chest pain History of Present illness: Ms. Isiah Benítez is a 69 y.o. female with a PMH of COPD, HTN, HLP, DM 2, SASHA [o n CPAP], anxiety, depression, chronic pain, morbid obesity, kidney stones and os teoarthritis, who was admitted on 09/17/2019 with complaint of abdominal pain. S he reports a 3-day history of gradually worsening generalized abdominal pain whi ch is worst in the left lower quadrant. She says her pain is very similar to th e pain she experienced when she was recently admitted for left ureteral stone. She reports a 8/10 intermittent cramping abdominal pain which is worse in the le ft lower quadrant. She denies any aggravating factors but the pain is relieved with pain medication. She denies any fevers. She has nausea without vomiting a nd dysuria without hematuria/urinary urgency/urinary frequency. She denies any chest pain, shortness of breath, palpitations, lightheadedness, d izziness, focal weakness/numbness/tingling or headache. In the ER, she was note d to have sodium 132, glucose 425, BUN 35, ALT 55, lipase [address] abdomen showed left-sided ureteral calculus, left ureteral stent and 3.2 cm ure thral diverticulum with small stones [unchanged]. Chest x-ray did not show any acute abnormalities. She was tachycardic with a rate of 110. PMH: As above PSH: Appendectomy, cholecystectomy, hernia surgery, hysterectomy, oophorectomy, tonsillectomy FH: See below SH: Drinks alcohol occasionally. Denies any tobacco or drug abuse. ROS A 10-point review of systems was completed and was negative except as noted abov e. Past Medical History: Diagnosis Date Acute bleeding [...] Refusal of blood transfusions as patient is Yazidism Sleep apnea CPAP use Type 2 diabetes [...] STENT PLACEMENT; Surgeon: Darin Huber MD; [place] [facility] [place]; Service: Urology; Laterality: Left; CYSTOSCOPY, RETROGRADE PYELOGRAM, URETEROSCOPY, LASERLITHOTRIPSY, WITH URETE RAL STENT PLACEMENT Left 08/02/2019 Procedure: CYSTOSCOPY, LEFT RETROGRADE PYELOGRAM, LEFT URETEROSCOPY, LASER LITH OTRIPSY, LEFT URETERAL STENT EXCHANGE; Surgeon: Darin Huber MD; Location: [facility] Main OR; Service: Urology; Laterality: Left; CYSTOSCOPY, RETROGRADE PYELOGRAM, W/URETERAL STENT PLACEMENT Left 08/30/2019 Procedure: CYSTOSCOPY, LEFT RETROGRADE PYELOGRAM, AND LEFT URETERAL STENT INSER TION; Surgeon: Janet Aragon MD; [place] [facility] [place]; Service: Urolo gy; Laterality: Left; HAND SURGERY Left 03/09/2019 CTR HERNIA REPAIR HYSTERECTOMY OOPHORECTOMY REMOVAL, HARDWARE, FOOT OR ANKLE Left 04/09/2017 Procedure: LEFT ANKLE REMOVAL OF HARDWARE WITH REVISION LEFT ANKLE ARTHRODESIS; Surgeon: Adelaida Olivas MD; Location: [facility] [place]; Service: Orthopedics; Later ality: Left; REPAIR, INCISIONAL HERNIA, LAPAROSCOPIC, USING MESH N/A 05/25/2018 Procedure: LAPAROSCOPIC INCISIONAL HERNIA REPAIR WITH MESH; Surgeon: Medardo Tate MD; Location[place] [facility] [place]; Service: General; Laterality: N/A; TONSILLECTOMY TOTAL KNEE ARTHROPLASTY Left 2009 TOTAL KNEE ARTHROPLASTY Right 2010 Family History [...] use: Yes Comment: rarely Drug use: No Allergies Allergen Reactions Lisinopril Anaphylaxis Metformin Anaphylaxis Angioedema Sulfa (Sulfonamide Antibiotics) Hives and Itching Latex, Natural Rubber Hives Reaction from oxygen nasal cannula Prior to Admission medications Medication Sig albuterol (PROAIR/PROVENTIL/VENTOLIN) 90 mcg/actuation HFA inhaler Inhale 2 puff s every 6 (six) hours as needed for wheezing. amitriptyline (ELAVIL) 25 MG tablet Take 1 tablet (25 mg total) by mouth nightly . atorvastatin (LIPITOR) 40 MG tablet Take 1 tablet (40 mg total) by mouth daily. Patient taking differently: Take 40 mg by mouth nightly. BREO ELLIPTA 200-25 mcg/dose INHALER INHALE 1 PUFF BY MOUTH DAILY citalopram (CELEXA) 20 mg tablet Take 1 tablet (20 mg total) by mouth daily. cyclobenzaprine (FLEXERIL) 10 MG tablet Take 1 tablet (10 mg total) by mouth 3 ( three) times a day as needed for muscle spasms. gabapentin (NEURONTIN) 300 MG capsule TAKE 2 CAPSULES BY MOUTH THREE TIMES DAILY hydroCHLOROthiazide (HYDRODIURIL) 25 MG tablet Take 1 tablet (25 mg total) by mo ut daily. insulin glargine (LANTUS U-100 INSULIN) 100 unit/mL injection ADMINISTER 20 UNIT S UNDER THE SKIN EVERY NIGHT. E11.9 insulin syringe (BD ULTRA-FINE) 0.3 mL 31 gauge x 5/16 Inject under the skin jcarlos ly. use as directed insulin syringe 0.3 mL 31 gauge x 5/16 USE DIRECTED ipratropium-albuterol (DUO-NEB) 0.5-3 mg/3 mL nebulizer Inhale 3 mL 4 (four) joann es a day. Patient taking differently: Inhale 3 mL 4 (four) times a day as needed. lactobacillus (CULTURELLE) 10 billion cell capsule Take 2 capsules by mouth eve castro metoprolol tartrate (LOPRESSOR) 100 MG tablet TAKE 1 TABLET BY MOUTH TWICE DAILY oxyCODONE-acetaminophen (PERCOCET) 5-325 mg per tablet Take 1 tablet by mouth ev patti 4 (four) hours as needed. Max Daily Dose: 6 tablets OXYGEN THERAPY 2 L/min as needed. phenazopyridine (PYRIDIUM) 200 MG tablet Take 1 tablet (200 mg total) by mouth 3 (three) times a day as needed for pain. predniSONE (DELTASONE) 10 MG tablet 2 tabs PO daily x 4 days, 1 tab PO daily x 4 days tolterodine (DETROL) 2 MG tablet Take 1 tablet (2 mg total) by mouth 2 (two) joann es a day. vit A/vit C/biotin/zinc/copper (EBAN-DLPO-LXXA,VIT A,C-BIOTIN, ORAL) Take by tanna th daily. Objective Triage Vital Signs: Temp: 36.5 C (97.7 F) Pulse: (!) 115 Resp: 28 BP: (!) 13 6/95 SpO2: 93 % Height: 152.4 cm (5') Weight: 90.7 kg (200 lb) Physical Exam Gen: Well developed/well nourished, Cooperative, Moderatly distressed HEENT: Head: Normal, normocephalic, atraumatic. Eye: Normal external eye, conjun ctiva, eye lids, and cornea. CV: No murmurs, gallops, or rubs, Tachycardia with heart rate of 110 bpm Resp: Clear to auscultation, Breath sounds are equal and symmetric Abd: Soft, Non-distended, Normal bowel sounds, Tender: LLQ and generalized Ext: No clubbing, cyanosis, or edema Skin: Warm, dry, skin intact with no obvious rashes or significant lesions Neuro: Alert, Oriented to person, place, date, and situation, No focal neurolog ic deficits noted ECG personally reviewed with the following findings noted: sinus tachycardia, he art rate: 116 bpm I have personally reviewed the patient's vital signs, laboratory/pathology/cultu re results (as indicated), imaging studies (results were not discussed with the performing provider), ECG, current inpatient medications, technician support association notes, p rior admission/outpatient notes and prior to admission medications with pertaine nt findings noted within the assessment/plan. I have personally reviewed the agapito smart's past medical, surgical, family, or social history and there were no duarte es reported. Assessment/Plan Ms. Isiah Benítez is a 69 y.o. female who was admitted on 09/17/2019 with complai nt of Chest pain. * Ureteral calculus, left CT abdomen showed left ureteral stent and calculus. Her pain is similar to her recent admission for left ureteral stone. Urology consulted by ER. Will allow diet now. Medical management and supportiv e care. Continue tolterodine 2 mg twice daily. Monitor renal function with a.m. BMP. Suspected UTI Patient was recently treated for a [place] UTI. UA is concerning for UTI Started ceftriaxone for empiric management. Blood and urine cultures pending. Generalized abdominal pain Patient reports generalized abdominal pain but this is worse in the left lower q uadrant. CT abdomen showed left-sided ureteral calculus. Morphine 4 mg IV every 4 hours and fentanyl 25 mcg IV every 2 hours as needed fo r pain control SASHA on CPAP Ordered CPAP nightly. Essential hypertension Continued HCTZ 25 and metoprolol 100 twice daily. Type 2 diabetes mellitus with hyperglycemia, with long-term current use of insul in ([facility]) Continued home Lantus 20. Ordered SSI #2 with ACHS Accu-Cheks. COPD (chronic obstructive pulmonary disease) ([facility]) Not in acute exacerbation. Continued home inhalers. Continuous pulse ox Oxygen supplementation as needed. Morbid obesity due to excess calories ([facility]) Complicates all aspects of care. In addition, see my orders for additional details regarding this patients treatm ent plan. Diet: Diet-Consistent Carbohydrate (75 gm) VTE Prevention: Appropriate VTE orders and/or documentation has been completed for this patient. The patient does have an advanced directive. Code Status: Full Code Disp: Admit the patient as Inpatient to Intermediate with telemetry for treatmen t as noted above. Lashae Crenshaw MD [facility] . ENTICE LINEMAN THIRD STEP documented in this encounter Consult Notes * Hilario Diego MD - 09/21/2019 5:28 PM APPRENTICE LINEMAN THIRD STEP Associated Order(s): IP CONSULT TO ENDOCRINOLOGY Endocrinology Consult Note NAME: Isiah Benítez AGE: 69 y.o. : 1950 DATE OF ADMISSION: 09/17/2019 PCP: Ebony Sharp MD ATTENDING PHYSICIAN: Physician Hospitalist DATE OF CONSULT: 09/21/2019 REASON FOR CONSULT: DM management HPI: The patient is a 69-year-old female who has been a diabetic for 10 years. She has neuropathy as complication. She has allergy to metformin causing gil oedema. She has been managed on Lantus 22 units at night. Her A1c levels have been high for the last few years and this was 12.4 on this admission. She was a dmitted for chest pain and was found to have acute recurrent ureteral stone. Ena beard just came back from surgery for this. She has been n.p.o. all day and blood s ugars were 90-180. She also has history of COPD and prednisone was started 2 da ys ago for 4 days. Blood sugars were running 200-300 since admission until toda y. Past Medical History: Diagnosis Date Acute bleeding 08/08/2016 Allergic rhinitis Anxiety Bronchitis, chronic ([facility]) Cataract 2011, 2013 bilat cateract surgery Chronic pain disorder back, ribs, and ankle. COPD (chronic obstructive pulmonary disease) ([facility]) Depression Draining postoperative wound 08/08/2016 Endometriosis Essential hypertension Fractures [address] in Left ankle MATA (generalized anxiety disorder) 09/24/2015 Hernia of abdominal cavity Kidney stone Mixed hyperlipidemia 09/24/2015 Morbid obesity due to excess calories ([facility]) 07/10/2016 On home oxygen therapy 2L - usually needs if has an exerbation of COPD, or resp illness SASHA on CPAP Osteoarthritis Refusal of blood transfusions as patient is Yazidism Sleep apnea CPAP use Type 2 diabetes mellitus with hyperglycemia, with long-term current use of i nsulin ([facility]) 06/29/2016 Urinary calculi Urinary incontinence Urinary tract [...] Service: Urology; Laterality: Left; CYSTOSCOPY, RETROGRADE PYELOGRAM, W/URETERAL STENT PLACEMENT Left 08/30/2019 Procedure: CYSTOSCOPY, LEFT RETROGRADE PYELOGRAM, AND LEFT URETERAL STENT INSER TION; Surgeon: Janet Aragon MD; Location: [facility] Main OR; Service: Urolo gy; Laterality: Left; HAND SURGERY Left 03/09/2019 CTR HERNIA REPAIR HYSTERECTOMY OOPHORECTOMY REMOVAL, HARDWARE, FOOT OR ANKLE Left 04/09/2017 Procedure: LEFT ANKLE REMOVAL OF HARDWARE WITH REVISION LEFT ANKLE ARTHRODESIS; Surgeon: Adelaida Olivas MD; [place] [facility] Service: Orthopedics; Later ality: Left; REPAIR, INCISIONAL HERNIA, LAPAROSCOPIC, USING MESH N/A 05/25/2018 Procedure: LAPAROSCOPIC INCISIONAL HERNIA REPAIR WITH MESH; Surgeon: Medardo Tate MD; [place] [facility] [place]; Service: General; Laterality: N/A; TONSILLECTOMY TOTAL KNEE ARTHROPLASTY Left 2009 TOTAL KNEE ARTHROPLASTY Right 2010 Allergies Allergen Reactions Lisinopril Anaphylaxis Metformin Anaphylaxis Angioedema Sulfa (Sulfonamide Antibiotics) Hives and Itching Latex, Natural Rubber Hives Reaction from oxygen nasal cannula Medications Prior to Admission Medication Sig Dispense Refill Last Dose albuterol (PROAIR/PROVENTIL/VENTOLIN) 90 mcg/actuation HFA inhaler Inhale 2 puffs every 6 (six) hours as needed for wheezing. 1 Inhaler 0 Unknown at Unknown time amitriptyline (ELAVIL) 25 MG tablet Take 1 tablet (25 mg total) by mouth nig htly. 90 tablet 1 09/16/2019 at Unknown time atorvastatin (LIPITOR) 40 MG tablet Take 1 tablet (40 mg total) by mouth jcarlos ly. (Patient taking differently: Take 40 mg by mouth nightly. ) 90 tablet 1 09/16 at Unknown time BREO ELLIPTA 200-25 mcg/dose INHALER INHALE 1 PUFF BY MOUTH DAILY 60 each 0 09/16/2019 at Unknown time citalopram (CELEXA) 20 mg tablet Take 1 tablet (20 mg total) by mouth daily. 90 tablet 1 09/16/2019 at Unknown time cyclobenzaprine (FLEXERIL) 10 MG tablet Take 1 tablet (10 mg total) by mouth 3 (three) times a day as needed for muscle spasms. 90 tablet 0 Unknown at Unkno wn time gabapentin (NEURONTIN) 300 MG capsule TAKE 2 CAPSULES BY MOUTH THREE TIMES D AILY 540 capsule 0 09/21/2019 at Unknown time hydroCHLOROthiazide (HYDRODIURIL) 25 MG tablet Take 1 tablet (25 mg total) b y mouth daily. 30 tablet 0 09/16/2019 at Unknown time insulin glargine (LANTUS U-100 INSULIN) 100 unit/mL injection ADMINISTER 20 UNITS UNDER THE SKIN EVERY NIGHT. E11.9 10 mL 5 09/16/2019 at Unknown time insulin syringe (BD ULTRA-FINE) 0.3 mL 31 gauge x 5/16 Inject under the skin daily. use as directed 100 each 0 Taking insulin syringe 0.3 mL 31 gauge x 5/16 USE DIRECTED 100 each 1 Taking ipratropium-albuterol (DUO-NEB) 0.5-3 mg/3 mL nebulizer Inhale 3 mL 4 (four) times a day. (Patient taking differently: Inhale 3 mL 4 (four) times a day as n eeded. ) 360 mL 11 Taking lactobacillus (CULTURELLE) 10 billion cell capsule Take 2 capsules by mouth daily. 20 capsule 0 metoprolol tartrate (LOPRESSOR) 100 MG tablet TAKE 1 TABLET BY MOUTH TWICE D AILY 180 tablet 0 09/21/2019 at Unknown time oxyCODONE-acetaminophen (PERCOCET) 5-325 mg per tablet Take 1 tablet by mout h every 4 (four) hours as needed. Max Daily Dose: 6 tablets 10 tablet 0 Unknown at Unknown time OXYGEN THERAPY 2 L/min as needed. Taking phenazopyridine (PYRIDIUM) 200 MG tablet Take 1 tablet (200 mg total) by tanna th 3 (three) times a day as needed for pain. 9 tablet 0 Unknown at Unknown time predniSONE (DELTASONE) 10 MG tablet 2 tabs PO daily x 4 days, 1 tab PO daily x 4 days 12 tablet 0 09/16/2019 at Unknown time tolterodine (DETROL) 2 MG tablet Take 1 tablet (2 mg total) by mouth 2 (two) times a day. 30 tablet 0 Unknown at Unknown time vit A/vit C/biotin/zinc/copper (KGSV-[id number]-GYJT,VIT A,C-BIOTIN, ORAL) Take by mouth daily. 09/16/2019 at Unknown time Family History Problem Relation Age of Onset Cancer Mother Stroke Mother Cancer Father Stroke Father Cirrhosis Father Alcohol abuse Sister Hypertension Sister Other Sister back problems COPD Brother Alzheimer's disease Sister Diabetes Sister Hypertension Sister Stroke Sister Stroke Sister Stroke Brother Heart attack Brother Stroke Brother Heart attack Brother Stroke Brother Heart attack Brother Social History Socioeconomic History Marital status: Spouse [...] on phone: None Gets together: None Attends episcopal service: None Active member of club or organization: None Attends meetings of clubs or organizations: None Relationship status: None Intimate partner violence Fear of current or ex partner: None Emotionally abused: None Physically abused: None Forced sexual activity: None Other Topics Concern None Social History Narrative Ms. Benítez has one daughter, whom she lives with. She does not have an advanced directive. Medical surrogate decision maker is her daughter, Frank Garcia Code status: Full REVIEW OF SYSTEMS Pertinent items are noted in HPI. PHYSICAL EXAMINATION: Vitals: 09/21/19 1515 09/21/19 1530 09/21/19 1649 09/21/19 1651 BP: 118/81 120/75 121/71 BP Location: Left arm Left arm Left arm Patient position: Supine Supine Supine Pulse: 70 74 70 Resp: 18 12 18 Temp: 36.7 C (98.1 F) TempSrc: Oral SpO2: 95% 94% 92% 97% Weight: Height: General appearance: alert, appears stated age and cooperative Head: Normocephalic, without obvious abnormality, atraumatic Eyes: negative findings: lids and lashes normal, conjunctivae and sclerae normal and corneas clear Neck: no adenopathy, no carotid bruit, no JVD, supple, symmetrical, trachea midl ine. Thyroid: Normal size, symmetric, no tenderness/mass/nodules Lungs: clear to auscultation bilaterally Chest wall: no tenderness Heart: regular rate and rhythm, S1, S2 normal, no murmur, click, rub or gallop Abdomen: soft, non-tender; bowel sounds normal; no masses, no organomegaly Extremities: extremities normal, atraumatic, no cyanosis or edema Pulses: 2+ and symmetric Skin: Skin color, texture, turgor normal. No rashes or lesions Neurologic: Grossly normal Recent Labs 09/20/19 0406 09/20/19 0735 09/20/19 1120 09/20/19 1701 09/20/19 2023 09/20/19 2358 09/21/19 0740 09/21/19 1134 09/21/19 1505 09/21/19 1653 GLUCPOC 306* 309* 266* 283* 363* 216* 96 90 108* 186* Recent Labs 09/19/19 1653 09/20/19 0219 09/21/19 0343 WBC 10.54 9.32 10.19 HGB 14.0 12.2 12.6 HCT 43 36 37 PLT 197 191 206 Recent Labs 09/19/19 1653 09/20/19 0219 09/21/19 0343 NA 134 133 136 K 5.2 4.5 3.9 CREAT 1.0 0.9 0.8 BUN 24 24 26 GLU 221* 260* 107* GAP 9 5 5 CO2 30 33* 36* Recent Labs 09/21/19 0343 TSH 0.37* FREET4 1.0 HGBA1C 12.4* Recent Labs 09/21/19 0343 AST 36 ALT 94* ASSESSMENT: Principal Problem: Ureteral calculus, left Active Problems: COPD (chronic obstructive pulmonary disease) (HCC) Type 2 diabetes mellitus with hyperglycemia, with long-term current use of ins ulin (HCC) Essential hypertension SASHA on CPAP Morbid obesity due to excess calories (HCC) Generalized abdominal pain Suspected UTI Chronic respiratory failure (HCC) Confusion Elevated LFTs PLAN: Agree with restarting Lantus and sliding scale only for now. She has component of steroid-induced hyperglycemia but she will only have 1 more dose of prednisone. Unclear if she will go home on basal bolus insulin regimen or basal insulin plus oral hypoglycemic. We will monitor the patient while she is here. Hilario Diego 09/21/2019 5:28 PM ENTICE [facility] THIRD STEP * Theresa Mata RN - 09/20/2019 3:22 PM APPRENTICE [facility] THIRD STEP Inpatient Diabetes Education Note Diabetes Education provided per order. Patient seen for 30 minutes. Patient was accompanied by No one Present. Type of Diabetes: Type 2 Patient motivation appears: moderate. Patient was able to verbalize understandin g of information discussed today and does exhibit readiness to learn. Identified barriers to self care: follow thru with recommendations. Assessment: How long have you been diagnosed with Diabetes?: 6 - 10 years Who takes care of your Diabetes?: PCP Are you checking your blood sugar at home?: No(no meter and threw out meter supp lies) What is the reason?: Meter Broken/Lost, Need a Meter What medications are you currently taking for your Diabetes?: Insulin Are you using . . .: Vial and Syringe How often do you miss a dose of medication?: Never Does anyone help you with your testing or medications?: Yes Who?: Family(daughter helps her manage diabetes) At home, have you had a blood sugar < 70 in the past week?: No Do you know why your blood glucose/A1C is high?: Diet Education provided: Diabetes Education Materials: [facility] "Diabetes Survival Skills" Guide(Insulin info rmation sheet, Hypo and Hyperglycemia sheets, [facility] Diabetes Managament and Educa tion brochure, and How to Inject using vial and sryinge information sheet.) Meter Education: Lancet Education, Strip Education, Issued (comment on name of m eter)(One Touch Verio meter) BGM Frequency: TID Insulin (multiple): Vials / Syringe Hypoglycemia: Signs / Symptoms, Treatment, Prevention Medication Information: Insulin (comment on basal, prandial, or correction)(Lant us and Humalog) Reviewed A1C level and target, monitoring times, targets, prevention and treatme nt of hypoglycemia, injection site rotation, Lantus and Humalog. 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 Unable to work due to COPD. Demonstrated use of One Touch Verio meter and will need RX for strips and Lancets. Level of service: 30 minutes Recommendations: Recommend OP DM Education or may need Home Health Education for Diabetes Please refer to [facility] directory for Energy Administrator's phone number. Lewis Mata RN, CDE Fiorella Phillips RN - 09/19/2019 12:31 PM APPRENTICE [facility] THIRD STEP Associated Order(s): CONSULT TO CARE PROGRESSION Advance Directive Consult Received consult for review of AD information. Met with pt and provided advance directive documents and verbal explanation. Pt encouraged to ask questions and voice concerns, questions answered, pt would like to review information and wells s not want assistance with completing forms at this time. Encouraged patient to let staff know if she wishes to complete the documents during this admission an d/or needs assistance/notarization. Pt verbalizes understanding and denies any other needs or concerns at this time. Will remain available for future question s or concerns. Isabel Boyd RN, BSN Fiber Product Cutting Machine Operator [phone] Arabella Cortes RN ANP - 09/18/2019 8:26 AM APPRENTICE [facility] THIRD STEP Associated Order(s): IP CONSULT TO UROLOGY [facility] UROLOGY CONSULT NOTE Patient: Isiah Benítez Age: 69 y.o. : 1950 PRIMARY CARE PROVIDER: Ebony Sharp MD ATTENDING PHYSICIAN: Physician Hospitalist CONSULTING PHYSICIAN: Arabella Irwin DATE OF CONSULTATION: 09/18/2019 8:27 AM REASON FOR CONSULTATION: Left ureteral calculus; suspected UTI HISTORY OF PRESENT ILLNESS: Mrs. Benítez is a pleasant 69 year old female who presented to E on 09/17/2019 for evaluation of generalized abdominal pain. Pain worse in left abdomen. Pain radiates to her bilateral lower back. Pain intermittent but was progressively getting worse. Described as cramping/pressure. No worsening fac tors. Pain not improved with pain medication. She also reported nausea and dys uria at the end of urination. Labs reviewed. WBC 12.83K. Bushel Worker 1.0. UA (+) for trace protein, >40 WBC/hpf and >40 RBC/hpf. Negative for nitrites or bacteria. CT ABD/pelvis with IV contrast film and report reviewed. This confirmed left ureteral stent in proper position with resolution of left hydronephrosis. 5 mm left ureteral calculus appeared to have migrated just above the left iliac crest (from the left proximal ureter). Also noted to have stable urethral diverticulum with small stones. Urology was consulted for further management. She is an established patient of Dr. Huber. She had a 1.5 cm LLP non obstructin g renal calculus and is s/p left ureteroscopy/laser/stent on 06/28/2019 and 08/02. Her left ureteral stent was subsequently removed on 08/10/2019. Stone a nalysis: 85% calcium oxalate monohydrate, 10% calcium phosphate, 5% calcium oxal ate dihydrate. She developed left [place] pyelonephritis with sepsis on 0 for an obstructing 5 mm left proximal ureteral calculus. She is s/p cystoscop y and left ureteral stent placement on 08/30/[address] Aragon. She was disch arged on 09/07/2019 on PO Fluconazole. REVIEW OF SYSTEMS: : see HPI Constitutional: No fever, chills or fatigue Head: No Headaches Eyes: No visual changes Ears: No changes in hearing Pulm: No shortness of breath CV: No chest pain or palpitations GI: + nausea and abdominal pain. No vomiting, or diarrhea Skin: No rashes Heme: No easy bruising Neuro: No numbness, tingling Musculoskeletal: + weakness MEDICAL HISTORY: Past Medical History: Diagnosis Date Acute bleeding 08/08/2016 Allergic rhinitis Anxiety Bronchitis, chronic ([facility]) Cataract 2011, 2012 bilat cateract surgery Chronic pain disorder back, ribs, and ankle. COPD (chronic obstructive pulmonary disease) ([facility]) Depression Draining postoperative wound 08/08/2016 Endometriosis Essential hypertension Fractures [address] in Left ankle MATA (generalized anxiety disorder) 09/24/2015 Hernia of abdominal cavity Kidney stone Mixed hyperlipidemia 09/24/2015 Morbid obesity due to excess calories ([facility]) 07/10/2016 On home oxygen therapy 2L - usually needs if has an exerbation of COPD, or resp illness SASHA on CPAP Osteoarthritis Refusal of blood transfusions as patient is Yazidism Sleep apnea CPAP use Type 2 diabetes mellitus with hyperglycemia, with long-term current use of i nsulin ([facility]) 06/29/2016 Urinary calculi Urinary incontinence Urinary tract infection 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 SURGICAL HISTORY: Past Surgical History: Procedure Laterality Date ANKLE [...] AND LEFT URETERAL STENT PLACEMENT; Surgeon: Darin Huebr MD; [place] [facility] [place]; Service: Urology; Laterality: Left; CYSTOSCOPY, RETROGRADE PYELOGRAM, URETEROSCOPY, LASERLITHOTRIPSY, WITH URETE RAL STENT PLACEMENT Left 08/02/2019 Procedure: CYSTOSCOPY, LEFT RETROGRADE PYELOGRAM, LEFT URETEROSCOPY, LASER LITH OTRIPSY, LEFT URETERAL STENT EXCHANGE; Surgeon: Darin Huber MD; [place] [facility] [place]; Service: Urology; Laterality: Left; CYSTOSCOPY, RETROGRADE PYELOGRAM, W/URETERAL STENT PLACEMENT Left 08/30/2019 Procedure: CYSTOSCOPY, LEFT RETROGRADE PYELOGRAM, AND LEFT URETERAL STENT INSER TION; Surgeon: Janet Aragon MD; [place] [facility] [place]; Service: Urolo gy; Laterality: Left; HAND SURGERY Left 03/09/2019 CTR HERNIA REPAIR HYSTERECTOMY OOPHORECTOMY REMOVAL, HARDWARE, FOOT OR ANKLE Left 04/09/2017 Procedure: LEFT ANKLE REMOVAL OF HARDWARE WITH REVISION LEFT ANKLE ARTHRODESIS; Surgeon: Adelaida Olivas MD; Location: [facility] Main OR; Service: Orthopedics; Later ality: Left; REPAIR, INCISIONAL HERNIA, LAPAROSCOPIC, USING MESH N/A 05/25/2018 Procedure: LAPAROSCOPIC INCISIONAL HERNIA REPAIR WITH MESH; Surgeon: Medardo Tate MD; Location: [facility] OR; Service: General; Laterality: N/A; TONSILLECTOMY TOTAL KNEE ARTHROPLASTY Left 2009 TOTAL KNEE ARTHROPLASTY Right 2010 PRIOR TO ADMISSION MEDICATIONS: Medications Prior to Admission Medication Sig Dispense Refill Last Dose albuterol (PROAIR/PROVENTIL/VENTOLIN) 90 mcg/actuation HFA inhaler Inhale 2 puffs every 6 (six) hours as needed for wheezing. 1 Inhaler 0 Unknown at Unknown time amitriptyline (ELAVIL) 25 MG tablet Take 1 tablet (25 mg total) by mouth nig htly. 90 tablet 1 09/16/2019 at Unknown time atorvastatin (LIPITOR) 40 MG tablet Take 1 tablet (40 mg total) by mouth jcarlos ly. (Patient taking differently: Take 40 mg by mouth nightly. ) 90 tablet 1 09/16 at Unknown time BREO ELLIPTA 200-25 mcg/dose INHALER INHALE 1 PUFF BY MOUTH DAILY 60 each 0 09/16/2019 at Unknown time citalopram (CELEXA) 20 mg tablet Take 1 tablet (20 mg total) by mouth daily. 90 tablet 1 09/16/2019 at Unknown time cyclobenzaprine (FLEXERIL) 10 MG tablet Take 1 tablet (10 mg total) by mouth 3 (three) times a day as needed for muscle spasms. 90 tablet 0 Unknown at Unkno wn time gabapentin (NEURONTIN) 300 MG capsule TAKE 2 CAPSULES BY MOUTH THREE TIMES D AILY 540 capsule 0 09/16/2019 at Unknown time hydroCHLOROthiazide (HYDRODIURIL) 25 MG tablet Take 1 tablet (25 mg total) b y mouth daily. 30 tablet 0 09/16/2019 at Unknown time insulin glargine (LANTUS U-100 INSULIN) 100 unit/mL injection ADMINISTER 20 UNITS UNDER THE SKIN EVERY NIGHT. E11.9 10 mL 5 09/16/2019 at Unknown time insulin syringe (BD ULTRA-FINE) 0.3 mL 31 gauge x 5/16 Inject under the skin daily. use as directed 100 each 0 Taking insulin syringe 0.3 mL 31 gauge x 01/05 USE DIRECTED 100 each 1 Taking ipratropium-albuterol (DUO-NEB) 0.5-3 mg/3 mL nebulizer Inhale 3 mL 4 (four) times a day. (Patient taking differently: Inhale 3 mL 4 (four) times a day as n eeded. ) 360 mL 11 Taking lactobacillus (CULTURELLE) 10 billion cell capsule Take 2 capsules by mouth daily. 20 capsule 0 metoprolol tartrate (LOPRESSOR) 100 MG tablet TAKE 1 TABLET BY MOUTH TWICE D AILY 180 tablet 0 09/16/2019 at Unknown time oxyCODONE-acetaminophen (PERCOCET) 5-325 mg per tablet Take 1 tablet by mout h every 4 (four) hours as needed. Max Daily Dose: 6 tablets 10 tablet 0 Unknown at Unknown time OXYGEN THERAPY 2 L/min as needed. Taking phenazopyridine (PYRIDIUM) 200 MG tablet Take 1 tablet (200 mg total) by tanna th 3 (three) times a day as needed for pain. 9 tablet 0 Unknown at Unknown time predniSONE (DELTASONE) 10 MG tablet 2 tabs PO daily x 4 days, 1 tab PO daily x 4 days 12 tablet 0 09/16/2019 at Unknown time tolterodine (DETROL) 2 MG tablet Take 1 tablet (2 mg total) by mouth 2 (two) times a day. 30 tablet 0 Unknown at Unknown time vit A/vit C/biotin/zinc/copper ([id number],VIT A,C-BIOTIN, ORAL) Take by mouth daily. 09/16/2019 at Unknown time MED LIST: Current Facility-Administered Medications Medication Dose Route Frequency Provider Last Rate Last Dose amitriptyline (ELAVIL) tablet 25 mg 25 mg Oral Nightly Lashae Crenshaw MD 25 mg at 09/17/192004 atorvastatin (LIPITOR) tablet 40 mg 40 mg Oral Nightly Lashae Crenshaw MD 40 mg at 09/17/192003 bisacodyL (DULCOLAX) suppository 10 mg 10 mg Rectal Daily PRN Lashae hurd MD cefTRIAXone (ROCEPHIN) injection 2 g 2 g Intravenous Daily Lashae Crenshaw MD 2 g at 09/17/19 1312 citalopram (CeleXA) tablet 20 mg 20 mg Oral Daily Lashae Crenshaw MD 20 mg at 09/17/19 1312 cyclobenzaprine (FLEXERIL) tablet 10 mg 10 mg Oral TID PRN Lashae Crenshaw MD 10 mg at 09/17/192003 dextrose 50% (D50W) syringe 25-50 mL 25-50 mL Intravenous PRN Lashae hurd MD Or dextrose 10% (D10W) bolus 125-250 mL 125-250 mL Intravenous PRN Lashae lund MD docusate sodium (COLACE) capsule 100 mg 100 mg Oral BID PRN Lashae arroyo MD 100 mg at 09/17/19 1747 fentaNYL (SUBLIMAZE) injection 25 mcg 25 mcg Intravenous Q2H PRN Lashae bernstein MD 25 mcg at 09/18/19 0357 fluticasone furoate-vilanterol (BREO ELLIPTA) 200-25 mcg/actuation inhaler 1 puff 1 puff Inhalation Daily Lashae Crenshaw MD 1 puff at 09/18/19 0743 gabapentin (NEURONTIN) capsule 600 mg 600 mg Oral TID Lashae Crenshaw MD 600 mg at 09/17/192004 glucagon (GLUCAGEN) injection 1 mg 1 mg Intramuscular PRN Lashae Crenshaw MD Or glucagon (GLUCAGEN) injection 1 mg 1 mg Subcutaneous PRN Lashae Crenshaw MD glucose chewable tablet 16-32 g 16-32 g Oral PRN Lashae Crenshaw MD insulin glargine (LANTUS) injection 20 Units 20 Units Subcutaneous Nightly Lashae Crenshaw MD 20 Units at 09/17/192004 insulin lispro (HumaLOG) injection 1-6 Units 1-6 Units Subcutaneous 4 times daily before meals and nightly Lashae Crenshaw MD 3 Units at 09/17/192016 ipratropium-albuterol (DUO-NEB) 0.5-3 mg/3 mL nebulizer solution 3 mL 3 mL Inhalation 4x Daily PRN Lashae Crenshaw MD magnesium sulfate IVPB 2 gram (premix) 2 g Intravenous PRN Lashae Crenshaw MD melatonin tablet 3 mg 3 mg Oral Nightly PRN Lashae Crenshaw MD 3 mg at 09/17/192016 metoprolol tartrate (LOPRESSOR) tablet 100 mg 100 mg Oral BID Lashae hurd MD 100 mg at 09/17/192016 morphine 4 mg/mL injection 4 mg 4 mg Intravenous Q4H PRN Luciano Funes MD 4 mg at 09/18/19 0741 polyethylene glycol (GLYCOLAX) packet 17 g 17 g Oral Daily PRN Lashae alicea MD potassium chloride (KLOR-CON) CR tablet 20 mEq 20 mEq Oral PRN Lashae alicea MD Or potassium bicarb-citric acid (EFFER-K) effervescent tablet 20 mEq 20 mEq Or al PRN Lashae Crenshaw MD Or potassium chloride 20 mEq in 100 mL IVPB 20 mEq Intravenous PRN Lashae lund MD prochlorperazine (COMPAZINE) injection 2.5-5 mg 2.5-5 mg Intravenous Q4H OR N Lashae Crenshaw MD 5 mg at 09/17/19 1312 Or prochlorperazine (COMPAZINE) injection 2.5-5 mg 2.5-5 mg Intramuscular Q4H PRN Lashae Crenshaw MD Or prochlorperazine (COMPAZINE) suppository 25 mg 25 mg Rectal Q12H PRN Paula Crenshaw MD tolterodine (DETROL) tablet 2 mg 2 mg Oral BID Lashae Crenshaw MD 2 mg at 09/17/19 2344 ALLERGIES: Lisinopril; Metformin; Sulfa (sulfonamide antibiotics); and Latex, natural rubbe r SOCIAL HISTORY: Social History Socioeconomic History Marital status: Spouse name: Not on file Number of children: Not on file Years of education: Not on file Highest education level: Not on file Occupational History 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 Social Needs Financial resource strain: Not on file Food insecurity Worry: Not on file Inability: Not on file Transportation needs Medical: Not on file Non-medical: Not on file Tobacco Use Smoking status: Former Smoker Packs/day: 0.33 Years: 20.00 Pack years: 6.60 Types: Cigarettes Start date: 1990 Last attempt to quit: 04/2011 Years since quittin.4 Smokeless tobacco: Never Used Tobacco comment: quit 7 years ago Substance and Sexual Activity Alcohol use: Yes Comment: rarely Drug use: No Sexual activity: Never Lifestyle Physical activity Days per week: Not on file Minutes per session: Not on file Stress: Not on file Relationships Social connections Talks on phone: Not on file Gets together: Not on file Attends episcopal service: Not on file Active member of club or organization: Not on file Attends meetings of clubs or organizations: Not on file Relationship status: Not on file Intimate partner violence Fear of current or ex partner: Not on file Emotionally abused: Not on file Physically abused: Not on file Forced sexual activity: Not on file Other Topics Concern Not on file Social History Narrative Ms. Benítez has one daughter, whom she lives with. She does not have an advanced directive. Medical surrogate decision maker is her daughter, Frank Garcia Code status: Full FAMILY HISTORY: Family History Problem Relation Age of Onset Cancer Mother Stroke Mother Cancer Father Stroke Father Cirrhosis Father Alcohol abuse Sister Hypertension Sister Other Sister back problems COPD Brother Alzheimer's disease Sister Diabetes Sister Hypertension Sister Stroke Sister Stroke Sister Stroke Brother Heart attack Brother Stroke Brother Heart attack Brother Stroke Brother Heart attack Brother Vitals: 09/18/19 0723 09/18/19 0749 BP: 127/80 Pulse: 82 80 Resp: 18 18 Temp: 36.6 C (97.9 F) SpO2: (!) 82% 96% Weight: Height: PHYSICAL EXAM: Gen: Alert and oriented HEENT: Normocephalic, Atraumatic Eyes: PERRL, EOMI Lungs: non-labored, good effort CV: Palp pulse in all 4 extremities Abd: Soft, obese, generalized tenderness in lower abdomen but worse in LLQ, non- distended Back: No CVA tenderness on the RIGHT, mild CVA tenderness on LEFT EXT: No redness, swelling, or calf tenderness Skin: Warm, dry and intact Neuro: CN II-XII grossly intact Labs: Last 3 CBC Results (within last 7 days): Most Recent Result within the last 7 days Lab Units 09/17/19 0838 WBC TH/uL 12.83* HEMOGLOBIN g/dL 15.2* HEMATOCRIT % 43 PLATELET COUNT TH/uL 294 Last 3 BMP Results (within the last 7 days): Most Recent Result within the last 7 days Lab Units 09/17/19 0838 SODIUM MEQ/L 132* POTASSIUM MEQ/L 3.8 CHLORIDE MEQ/L 93* CARBON DIOXIDE MEQ/L 28 BLOOD UREA NITROGEN mg/dL 35* CREATININE mg/dL 1.0 GLUCOSE mg/dL 425* CALCIUM mg/dL 9.3 UA: Appearance, Urine Date/Time Value Ref Range Status 09/17/2019 10:05 AM Yellow Final Glucose Urine Date/Time Value Ref Range Status 09/17/2019 10:05 AM 500 (A) Negative mg/dL Final Hemoglobin Urine Date/Time Value Ref Range Status 09/17/2019 10:05 AM Large (A) Negative Final Ketones Urine Date/Time Value Ref Range Status 09/17/2019 10:05 AM Negative Negative mg/dL Final PH Urine Date/Time Value Ref Range Status 09/17/2019 10:05 AM 5.5 5.0 - 8.0 Final Bilirubin Urine Date/Time Value Ref Range Status 09/17/2019 10:05 AM Negative Negative Final Leukocyte Esterase Date/Time Value Ref Range Status 09/17/2019 10:05 AM Positive (A) Negative Final Specific [place], UA Date/Time Value Ref Range Status 09/17/2019 10:05 AM >=1.030 1.001 - 1.030 Final Protein Urine Qual Date/Time Value Ref Range Status 09/17/2019 10:05 AM Trace (A) Negative mg/dL Final IMAGES: Ct Abdomen Pelvis W Contrast Result Date: 09/17/2019 1. Interval placement of left nephro ureteral stent in appropriate position with decompression of the left-sided collecting system. Left sided ureteral calculus has migrated slightly now at the level of the iliac crests. 2. 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 3. Hepatomegaly with hepatic steatosis. 4. Prominence of the central intrahepatic and extra hepatic bile ducts with the common bile duct measuring up to 0.8 cm. This is most likely related to the postcholecystectomy state of the patient, although it is new from the prior CT. MRI/MRCP may be performed to assess for biliary obstruction, if clinically warranted. READING SITE: [facility] ATTESTATION STATEMENT: The staff radiologist has personally reviewed the images and dictated, reviewed, or edited the final report. Xr Chest Single View Frontal Result Date: 09/17/2019 1. No acute cardiopulmonary abnormality. 2. Low lung volumes. Mild atelectasis. READING SITE: [facility] ASSESSMENT/PLAN: 1. Left mid ureteral calculus - s/p cystoscopy and left ureteral stent placement with Dr. Aragon on 08/30/2019 - Will discuss with physicians regarding arrangement of next staged procedure. If urine cultures are negative, consider proceeding towards end of week if physi cians are in agreement - She would benefit from metabolic evaluation in the future to assess risk facto rs for renal calculi - Continue supportive care for ureteral stent discomfort: Detrol LA, PRN Levsin and Pyridium, bowel regimen - She would benefit from metabolic evaluation as an outpatient to assess risk fa ctors for renal calculi 2. Recent episode of left Cheyenne pyelonephritis and urosepsis - Follow urine and blood cultures. She is currently on IV Rocephin - UA negative for nitrites and bacteria and (+) for RBCS and WBCS which could be secondary to ureteral stent vs remaining infection. She is afebrile. Will dis cuss with physicians regarding next staged procedure arrangement and to see if s he can have this performed while in-house Staff Urologist will follow up. Thank you for allowing us to care for Mrs. Erika morales. We will continue to follow. [facility] Associated attestation - Antonio Duque MD - 09/19/2019 10:59 AM APPRENTICE [facility] I personally saw and examined the patient. I agree with Arabella Irwin NP's f indings, assessment and plan as documented in the note below. Patient is feeling much better. She does report subjective low-grade fever. De nies any nausea or vomiting. She is tolerating regular diet and is ambulatory w [facility] assistance. She is quite eager and determined to have treatment of her stone while in-house. We will need to obtain a final urine culture to ensure she is on appropriate a ntibiotics. She may be a candidate for ureteroscopy with laser lithotripsy and stent exchange later this week. Antonio Duque * Jaylyn Batres, RN - 09/17/2019 1:00 PM [facility] Associated Order(s): CONSULT - VASCULAR ACCESS TEAM Consulted for IV access. Patient had 2 previous IV's infiltrate. This RN placed a 20g 2.25" Accucath to the right AC, brisk blood aspirate, flushed. Rae MEDINA upd ated. [facility] documented in this encounter Nursing Notes * Sunny Boyer RN - 09/19/2019 11:27 PM [facility]PR[facility]EP 09/19/19 0926 Goals for Shift Pt/Family Goal for Shift pain control Nursing Goals for the Shift pain control Plan/Interventions to meet Goal PRN pain meds, repositioning [facility] documented in this encounter ED Notes * Rae Reyes RN - 09/17/2019 1:04 PM [facility]PRENT[facility]EP 800ml NS left to go and restarted second bag of NS since Vascular Access establi shed right ac IV. Lab completed second set of cultures. Ordered diabetic tray fo r patient. C/o 8/10 upper abdominal pain. [facility] * Barby Olivo RN - 09/17/2019 12:40 PM APPRENT[facility] STEP PICC team at bedside [facility]EP * Rae Reyes RN - 09/17/2019 11:35 AM APPRENTICE LINEMAN [facility] Dr. Funes states patient will likely need to be admitted. Notified Rachel of n eed for additional ultrasound guided IV placement. [facility] * Rae Reyes RN - 09/17/2019 10:55 AM APPRENTICE [facility]EM[facility] THIRD STEP Notified Dr. Funes of right arm ultrasound IV infiltrating after 200ml infused o f second bag of fluids. ENT[facility] STEP * Rae Reyes RN - 09/17/2019 10:54 AM [facility]PRENTICE [facility]EM[facility]IRD STEP Daughter called to obtain update. Update provided within HIPPA limits. Notified daughter that I will instruct patient to call her with any updates. [facility] * Rae Reyes RN - 09/17/2019 10:06 AM APPRENTICE LINEM[facility] THIRD STEP Up to brp with standby assist. Patient using hat to attempt to obtain UA. ENTICE [facility]EM[facility] TH[facility] STEP * Rae Reyes RN - 09/17/2019 8:29 AM APPRENTICE LINEM[facility] THIRD STEP adelfo Prabhakar did not see any viable options for placing IV. Rachel, ultrasound guided trained IV, assessing at bedside for IV access. E[facility] STEP * Rae Reyes RN - 09/17/2019 8:20 AM APPRENTICE [facility]EM[facility] THIRD STEP Discussed with Vanna Fair if can assess for IV placement since unsuccessful x2 . Vanna assessing for IV access site now. ENTICE [facility]EM[facility] TH[facility] STEP * Luciano Funes MD - 09/17/2019 7:57 AM APPRENTICE [facility]EM[facility] THIRD STEP 09/17/2019 [facility] History Chief Complaint Patient presents with Chest pain c/o 3 days of abdominal pain and chest pain. c/o sob. EMS arrived to home and reports patient c/o nausea. zofran 8mg odt given. BS 392. diaphoretic. last time felt like this a few weeks ago was admited to ICU with sepsis here. The history is provided by the patient. Abdominal Pain Pain location: Generalized Pain quality: cramping and sharp Pain radiates to: Does not radiate Pain severity: Moderate Onset quality: Gradual Duration: 3 days Timing: Constant (initially intermittent) Progression: Worsening Chronicity: New Context: not trauma Context comment: Recent admission with sepsis/kidney stone Relieved by: Nothing Worsened by: Nothing Associated symptoms: cough and nausea Associated symptoms: no chest pain, no chills, no diarrhea, no dysuria, no fever , no hematuria, no shortness of breath and no vomiting Risk factors: recent hospitalization Past Medical History: Diagnosis Date Acute bleeding [...] Refusal of blood transfusions as patient is Yazidism Sleep apnea CPAP use Type 2 diabetes [...] STENT PLACEMENT; Surgeon: Darin Huber MD; [place] [facility] [place]; Service: Urology; Laterality: Left; CYSTOSCOPY, RETROGRADE PYELOGRAM, URETEROSCOPY, LASERLITHOTRIPSY, WITH URETE RAL STENT PLACEMENT Left 08/02/2019 Procedure: CYSTOSCOPY, LEFT RETROGRADE PYELOGRAM, LEFT URETEROSCOPY, LASER LITH OTRIPSY, LEFT URETERAL STENT EXCHANGE; Surgeon: Darin Huber MD; [place] [facility] [place]; Service: Urology; Laterality: Left; CYSTOSCOPY, RETROGRADE PYELOGRAM, W/URETERAL STENT PLACEMENT Left 08/30/2019 Procedure: CYSTOSCOPY, LEFT RETROGRADE PYELOGRAM, AND LEFT URETERAL STENT INSER TION; Surgeon: Janet Aragon MD; [place] [facility] [place]; Service: Urolo gy; Laterality: Left; HAND SURGERY Left 03/09/2019 [facility] HERNIA REPAIR HYSTERECTOMY OOPHORECTOMY REMOVAL, HARDWARE, FOOT OR ANKLE Left 04/09/2017 Procedure: LEFT ANKLE REMOVAL OF HARDWARE WITH REVISION LEFT ANKLE ARTHRODESIS; Surgeon: Adelaida Olivas MD; [place] [facility] [place]; Service: Orthopedics; Later ality: Left; REPAIR, INCISIONAL HERNIA, LAPAROSCOPIC, USING MESH N/A 05/25/2018 Procedure: LAPAROSCOPIC INCISIONAL HERNIA REPAIR WITH MESH; Surgeon: Medardo Tate MD; Location: [facility] [place]; Service: General; Laterality: [...] Systems Constitutional: Negative for chills and fever. HENT: Positive for congestion. Respiratory: Positive for cough. Negative for shortness of breath. Cardiovascular: Negative for chest pain. Gastrointestinal: Positive for abdominal pain and nausea. Negative for diarrhea and vomiting. Genitourinary: Negative for dysuria and hematuria. All other systems reviewed and are negative. Physical Exam BP 110/87 | Pulse (!) 111 | Temp 97.7 F (36.5 C) (Oral) | Resp 11 | Ht 1 .524 m (5') | Wt 90.7 kg (200 lb) | SpO2 92% | BMI 39.06 kg/m Weight Method: Stated Physical Exam Vitals signs reviewed. Constitutional: General: She is in acute distress. Appearance: She is not diaphoretic. HENT: Head: Normocephalic and atraumatic. Mouth/Throat: Mouth: Mucous membranes are dry. Eyes: General: No scleral icterus. Right eye: No discharge. Left eye: No discharge. Neck: Musculoskeletal: Normal range of motion. No neck rigidity. Cardiovascular: Rate and Rhythm: Regular rhythm. Tachycardia present. Pulmonary: Breath sounds: Rhonchi present. No rales. Abdominal: Tenderness: There is tenderness (diffuse). There is no guarding. Musculoskeletal: General: No deformity or signs of injury. Skin: General: Skin is warm and dry. Neurological: Mental Status: She is alert. Psychiatric: Mood and Affect: Mood normal. Behavior: Behavior normal. ED Course EKG (interp by me): Sinus tachycardia 116 bpm, QTC 478, normal axis, no STEMI Ct Abdomen Pelvis W Contrast Result Date: 09/17/2019 Patient: ISIAH BENÍTEZ Sex#: Paulina #: 1950 Jose#: [id number] [place] [facility] [place]11 Rashaad harris Requested: [id number] CT ABDOMEN PELVIS W CONTRAST Reason for Exam: Abdomina l pain or Vomiting/Diarrhea Exam Ordered: 09/17/2019 0756 Exam Date/Time: 09/17/2019 0859 Begin exam date/time: 09/17/[address] ABDOMEN PELVIS W CONTRAST INDICATION: "Abdominal pain or Vomiting/Diarrhea" EXAM: CT of the ab domen and pelvis with IV contrast including delayed images. The patient receive d 91 mL of Omnipaque 350 without complication. Coronal and sagittal reformatted images were performed. COMPARISON: CT abdomen/pelvis August 30, 2019 FINDINGS: Lower chest: Bibasilar subsegmental atelectasis. No consolidation. Calcified gra nuloma in the left base. No pleural effusion. Normal cardiac size. Trace pericar dial fluid. ABDOMEN: No free air, free fluid, or fluid collection. Liver: Hepato megaly measuring up to 20 cm. Diffuse hepatic steatosis. No focal hepatic mass. Gallbladder and biliary: Cholecystectomy. Prominence of the central intrahepatic and extra hepatic bile ducts with the common bile duct measuring up to 0.8 cm, new from prior. Spleen: Normal size spleen without focal lesions. Calcified sple niurka granulomas. Pancreas: The pancreas enhances homogeneously without focal mass or peripancreatic inflammatory changes. No pancreatic duct dilation. Adrenal gl ands: Normal size adrenal glands. Kidneys and ureters: Interval placement of lef t nephro ureteral stent in appropriate position with decompression of the left-s ided collecting system. Left sided ureteral calculus has migrated slightly now a t the level of the iliac crests (series 2, image 55). Stable right simple renal cyst. GI tract, Mesentery: Stomach is decompressed and poorly evaluated. Normal caliber small bowel. Normal caliber colon. Normal appendix. Vascular structures : Normal caliber abdominal aorta. Mild calcified atherosclerosis. The celiac art patti, SMA, bilateral renal arteries, and HANS are patent. Portal and mesenteric v enous structures are patent. Retroperitoneum, Lymph nodes: No lymphadenopathy in the abdomen or pelvis. PELVIS: Genitourinary system: Well distended bladder. Re demonstration of 3.2 cm urethral diverticulum, with multiple submillimeter stone s. Hysterectomy. SKELETAL STRUCTURES AND SOFT TISSUES: Severe mid and lower lumb ar facet osteoarthritis, with trace anterolisthesis. Moderate osteoarthritis in the hips. 1. Interval placement of left nephro ureteral stent in appropriate position wit h decompression of the left-sided collecting system. Left sided ureteral calculu s has migrated slightly now at the level of the iliac crests. 2. Redemonstratio n of 3.2 cm urethral diverticulum, with multiple submillimeter stones. 3. Hepat omegaly with hepatic steatosis. 4. Prominence of the central intrahepatic and e xtra hepatic bile ducts with the common bile duct measuring up to 0.8 cm. This i s most likely related to the postcholecystectomy state of the patient, although it is new from the prior CT. MRI/MRCP may be performed to assess for biliary obs truction, if clinically warranted. READING SITE: [facility] ATTESTATION S TATEMENT: The staff radiologist has personally reviewed the images and dictated, reviewed, or edited the final report. Xr Chest Single View Frontal Result Date: 09/17/2019 Patient: ISIAH BENÍTEZ Sex#: Paulina #: 1950 Jose#: [id number] Location: [facility] SED-11 Rashaad steven Requested: [id number] XR CHEST SINGLE VIEW FRONTAL Reason for Exam: Chest Pa in Exam Ordered: 09/17/2019 0743 Exam Date/Time: 09/17/2019 0758 Beg in exam date/time: 09/17/2019 0754 XR CHEST SINGLE VIEW FRONTAL INDICATION: C hest Pain COMPARISON: Chest radiographs 09/06/2019. CT chest 09/13/2018 FINDINGS: Moderately low lung volumes. Linear opacity in the left lower lung, likely plat elike atelectasis. The cardiomediastinal silhouette, hilar contours and pleural surfaces are normal. There are calcified mediastinal lymph nodes. There is no pl eural effusion or pneumothorax. 1. No acute cardiopulmonary abnormality. 2. Low lung volumes. Mild atelectasis . READING SITE: [facility] Results for orders placed or performed during the hospital encounter of 09/17/19 (from the past 24 hour(s)) Electrocardiogram (ECG) Result Value Ref Range QRSd 94 QT 344 QTC 478 ECGHR 116 ECGPR 136 Comprehensive Metabolic Panel Result Value Ref Range Sodium 132 (L) 133 - 147 MEQ/L Potassium 3.8 3.5 - 5.3 MEQ/L Chloride 93 (L) 96 - 112 MEQ/L Carbon Dioxide 28 20 - 32 MEQ/L Anion Gap 11 5 - 17 Calcium 9.3 8.4 - 10.5 mg/dL Glucose 425 (H) 70 - 100 mg/dL Protein Total Serum 8.5 (H) 6.0 - 8.2 g/dL Albumin 4.3 3.5 - 5.0 g/dL Alkaline Phosphatase 109 42 - 140 IU/L Alanine Aminotransferase 55 (H) 0 - 34 IU/L Aspartate Aminotransferase 40 15 - 46 IU/L Bilirubin Total 0.8 0.2 - 1.3 mg/dL Blood Urea Nitrogen 35 (H) 7 - 26 mg/dL Creatinine 1.0 0.4 - 1.1 mg/dL eGFR Female AA 66 60 - 200 mL/min/1.73sq m eGFR Female Non-AA 55 (L) 60 - 200 mL/min/1.73sq m CBC and Diff (manual diff if necessary) Result Value Ref Range WBC 12.83 (H) 4.00 - 11.00 TH/uL RBC 4.62 4.00 - 5.00 MIL/uL Hemoglobin 15.2 (H) 12.0 - 15.0 g/dL Hematocrit 43 36 - 45 % MCV 94 80 - 99 fL MCH 33 27 - 34 pg MCHC 35 32 - 36 % RDW 13.0 11.5 - 14.5 % Platelet Count 294 140 - 400 TH/uL MPV 9.9 9.4 - 12.3 fL Nucleated RBCs 0 0 - 0 /100 % Neutrophils 60 45 - 78 % %Lymphocytes 30 15 - 47 % %Monocytes 8 0 - 12 % %Eosinophils 1 0 - 7 % %Basophils 0 0 - 2 % % Imm Grans 1 0 - 1 % # Granulocytes 7.65 (H) 1.7 - 6.8 TH/uL # Lymphocytes 3.84 (H) 1.0 - 3.3 TH/uL # Monocytes 1.05 (H) 0.2 - 0.9 TH/uL # Eosinophils 0.17 0.0 - 0.4 TH/uL # Basophils 0.05 0.0 - 0.1 TH/uL Troponin 0 hr Result Value Ref Range Troponin <0.01 0.00 - 0.03 ng/mL Lipase Result Value Ref Range Lipase 164 23 - 300 IU/L Urinalysis Reflex Result Value Ref Range Appearance, Urine Yellow Glucose Urine 500 (A) Negative mg/dL Bilirubin Urine Negative Negative Ketones Urine Negative Negative mg/dL Specific [place], UA >=1.030 1.001 - 1.030 Hemoglobin Urine Large (A) Negative PH Urine 5.5 5.0 - 8.0 Protein Urine Qual Trace (A) Negative mg/dL Urobilinogen Urine Negative Negative EU/dL Nitrite Urine Negative Negative Leukocyte Esterase Positive (A) Negative Urinalysis Microscopic Only Result Value Ref Range Microscopic RBC Urine >40 (A) 0 - 5 /hpf Microscopic WBC Urine >40 (A) 0 - 5 /hpf Epithelial Cells Absent Absent Hyaline Cast Absent Absent Bacteria Absent Absent Procedures MDM Number of Diagnoses or Management Options Pyelonephritis: Sepsis, due to unspecified organism, unspecified whether acute organ dysfunction present (HCC): Diagnosis management comments: EKG, Imaging, Labs, Urine IV fentanyl IV fluids 0940: Labs noted. Glc and BUN elevated. Will repeat normal saline bolus and give subc u insulin. 1103: Results noted. Urology paged. Concern for Pyelo with sepsis 1120: Discussed with Dr. Sargent, urology. He advises admission to hospitalist with I V antibiotics, okay to eat. He will consult. 1125: Discussed with Dr. Gonzalez, hospitalist. Admit full/intermediate, get blood cult ures and give antibiotics. Check lactate. -IV Rocephin -2nd Liter NS IV (~30 mL/kg for IBW) Critical Care Time: 33 minutes Amount and/or Complexity of Data Reviewed Clinical lab tests: ordered and reviewed Tests in the radiology section of CPT: ordered and reviewed Review and summarize past medical records: yes (09/07/19 Discharge Summary: Ms. Isiah Benítez is a 69 y.o. female who was admitted on 08/30/2019 with complain t of Hematemesis and Dizziness. Patient has history of COPD and hypertension as well as diabetes. She presented with dyspnea, cough, and dizziness. In the ER she was found to have UTI with a 5 mm proximal left ureteral stone and left-judah ed hydronephrosis. Urology was consulted and she was admitted to ICU postoperat ively for BiPAP. She was treated with IV steroids as well as antibiotics. Urin e culture and blood culture were positive for Cheyenne and therefore IV fluconazo le was started. Repeat blood cultures were negative and she was transitioned to oral fluconazole to complete 14 days. Respiratory panel did return positive fo r RSV. She was tapered to oral steroids and will complete a slow taper at disch arge. Her blood pressure was elevated and she was started on hydrochlorothiazide in ad dition to her normal home medication regimen. Urology performed a cystoscopy with stent placement. She will need to follow-up with them in 2 to 3 weeks for definitive stone management and stent removal.) Discuss the patient with other providers: yes ED Clinical Impression 1. Pyelonephritis 2. Sepsis, due to unspecified organism, unspecified whether acute organ dysfunct ion present (HCC) Patient ED Dispo ED Disposition Admit Luciano Funes MD 09/17/19 1217 E[facility]EP * Barby Olivo RN - 09/17/2019 7:42 AM APPRENTICE [facility]EM[facility] THIRD STEP Bed: [facility] Expected date: Expected time: Means of arrival: Comments: duran ALONDRA ENTICE [facility]IRD STEP documented in this encounter Miscellaneous Notes * Care Progression Final DC Note - Tiny Reyna RN - 09/23/2019 3:23 PM APPRENTICE [facility]EM[facility] THIRD STEP Final Discharge Note Final Discharge Disposition: 06-Home Under Care of Organized Home Health Service Organization Discharge goal and plan is mutually agreed upon by patient. Patient will discharge to: Home with home health resumption Transportation: Family Discharge Time: Unknown Special Instructions: Noticed that patient has discharge orders and a plan to re sume home health. Spoke with Floresita Vargas with [facility] who can resume home health, but will need resumption orders. Contacted Dr. Watts via [facility] who gave verbal to resume home health. Sent orde rs to [facility]. Patient had already discharged. Was unable to present IMM letter. Tiny Reyna RN, BSN, [employer] Product Cutting Machine Operator [phone] s ENT[facility] THIRD STEP * Nutrition Note - Glenys Carlos RD LD - 09/23/2019 10:13 AM APPRENTICE [facility]EMAN THIRD STEP Nutrition Length of Stay [facility] Patient: Isiah Benítez Age: 69 y.o. : 1950 PRIMARY CARE PROVIDER: Ebony Sharp MD ATTENDING PHYSICIAN: Art Watts II, DO Patient assessed for nutrition risk based on length of stay. Chart reviewed. Height: 157.5 cm (5' 2") Admit Weight: 208# Weight: 102 kg (224 lb 13.9 oz) Weight Change: +16# since admit BMI (Calculated): 38.2 Diet Order: Consistent carbohydrate per pt tolerance Food Intake: 100% of last 4 meals recorded Skin: note coccyx wound per RN notes, talked with RN 09/23 who reports red but no stage II wound or greater present Possible DC today per RN. No acute nutrition diagnosis determined at this time. Continue with current nutr ition plan. Will continue to evaluate every 5-7 days per policy. Electronically signed by Glenys Carlos 09/23/2019 10:13 AM ENTICE [facility]IRD STEP * End of Shift Note - Susan Brock RN - 09/23/2019 4:59 AM APPRENTICE [facility]EM[facility] THIRD STEP End of Shift Summary and Plan of Care Alert and oriented. Vital signs stable. C/o abd pain several times and prn pain med given per request. Stand by assist, good urine out put. No bowel movement. N o acute changes. Will continue to monitor. Fall Prevention Plan Fall prevention interventions and safe environment main [place], see the Daily Cares/Safety flowsheet for documentation. Goals/Plan for Shift Patient/Family stated goal for shift: to go home tommorow Nursing goal for shift: pain control, control blood sugar, improve mobility Plan: PRN pain medication, stand by assisst, Q4 Acucheck Goals/Plan for Hospital Stay Patient/Family stated goal for hospital stay: to pass kidney stone Nursing goal for hospital stay: patient to pass kidney stone Plan: strain all urine, pain meds as needed ENTICE [facility]EM[facility] THIRD STEP * End of Shift Note - Annie Melchor RN - 09/22/2019 5:20 PM APPRENTICE LINEMAN THIRD STEP End of Shift Summary and Plan of Care Pt goal to be comfortable was met today. Pt is planning for discharge home [place]. PT voids without difficulty. Pt complains of flank pain- pain managed wi th PRN Percocet. Fall Prevention Plan Fall prevention interventions and safe environment [place], see the Daily Cares/Safety flowsheet for documentation. Goals/Plan for Shift Patient/Family stated goal for shift: " I want to be confortable and go home [place]" Nursing goal for shift: Improved mobility, pain control Plan: Ambulate Pt with walker and gait belt, give pain meds PRN Goals/Plan for Hospital Stay Patient/Family stated goal for hospital stay: to pass kidney stone Nursing goal for hospital stay: patient to pass kidney stone Plan: strain all urine, pain meds as needed ENTICE [facility]EM[facility] THIRD STEP * Nutrition Note - Letty Andrea RD LD CNSD - 09/22/2019 4:38 PM APPRENTICE [facility]EM[facility] THIRD STEP Nutrition Education [facility] Patient: Isiah Benítez Age: 69 y.o. : 1950 PRIMARY CARE PROVIDER: Ebony Sharp MD ATTENDING PHYSICIAN: Physician Hospitalist CHRIS consulted for carb counting Nutrition Education. Chart Reviewed UTI, DM II, COPD, SASHA on CPAP, HTN, morbid obesity Education Summary: Provided carb counting diet education on 60 g to max 75g carb /meal , label reading for carb counting, assisted pt in developing sample days menus to demonstrate meal planning and practice carb counting. After ed pt was a ble to identify food groups that count as carbs, 15 gram carb servings/portions and make a menu that had 60 g carb /meal. Pt denied any further questions at thi s time and expressed appreciation for information. Pt stated she is planning to loose weight and get her BGs down, Pt stated she plans to eat more fresh fruits and veggies, avoid processed meats. Angela Andrea RD, LD, CNSC Electronically signed by Letty Andrea 09/22/2019 4:38 PM ENTICE [facility]EM[facility] TH[facility] STEP * End of Shift Note - Arabella Mccormick RN - 09/21/2019 6:44 PM APPRENTICE LINEMAN THIRD STEP End of Shift Summary and Plan of Care Pt had lithotripsy done today. Increased pain after, given percocet, morphine an d heating pad. Pulse ox on with 2 L Fall Prevention Plan Fall prevention interventions and safe environment main chloe, see the Daily Cares/Safety flowsheet for documentation. Goals/Plan for Shift Patient/Family stated goal for shift: to get lithotripsy done Nursing goal for shift: pain control, glucose control Plan: diabetes education, PRN pain meds Goals/Plan for Hospital Stay Patient/Family stated goal for hospital stay: to pass kidney stone Nursing goal for hospital stay: patient to pass kidney stone Plan: strain all urine, pain meds as needed ENTICE [facility] STEP * Operative Note - Janet Aragon MD - 09/21/2019 2:42 PM APPRENTICE LINEMAN THIRD STEP PREOPERATIVE DIAGNOSES: Left ureteral stone. POSTOPERATIVE DIAGNOSIS: Left ureteral stone. PROCEDURE: Cystourethroscopy, left ureteral stent removal, left retrograde pyel ogram, left ureteroscopy, laser lithotripsy, basket extraction of stone and left ureteral stent placement (6-Niuean x 26 cm). SURGEON: Dr. Janet Aragon. ANESTHESIA: General. ESTIMATED BLOOD LOSS: None. COMPLICATIONS: None. SPECIMENS: Stone. INDICATION FOR PROCEDURE: Ms. Benítez is a 69-year-old female who had a 5-6 mm le ft ureteral stone several weeks ago, but she was septic at that time, so she was stented. She has completed antibiotic therapy. She presented with possible UT I, but her cultures were negative and given she has finished her antibiotic ther apy for her previous urosepsis episodes, she wanted to go ahead and move forward with stone treatment while inpatient. Risks of procedure were discussed includ ing but not limited to infection, bleeding, injury to the urethra, bladder, uret er, need for secondary procedures, stent pain, cardiopulmonary complications. S he voiced understanding and wished to proceed. DESCRIPTION OF PROCEDURE: After informed consent was obtained, patient was take n back to the operating suite and placed supine. After induction of general ane sthesia, she was placed in dorsal lithotomy position. Genitalia were prepped an d draped in standard fashion. Rigid cystoscopy was performed. The urethra was normal. Bladder was inspected and was normal. The stent was seen protruding fr om the left UO and was not encrusted. This was externalized at the meatus and a sensor wire was threaded up into the kidney. Rigid scope was advanced up into the ureter without difficulty and the stone was encountered in the upper portion of the distal ureter. This was lasered with the holmium laser and all pieces w ere basketed and extracted and removed and placed in the bladder. The ureterosc ope was inspected again to inspect the distal and mid portion of the ureter and there were no fragments seen. A second wire was placed and the rigid scope was removed. An 07/05 access sheath was placed over one of the wires to the level o f the proximal ureter and the safety wire was left in place. Flexible scope was advanced all the way up into the kidney and all calices were carefully inspecte d to make sure there were no other stone fragments that had blown up into the ki dney and this was all negative. The scope was backed out under direct vision al chrissie with this sheath and there was no injury from the sheath. The retrograde wa s performed to delineate the collecting system for stent placement over the wire with a dual lumen catheter, this revealed no extravasation and mild hydronephro sis. The wire was backloaded through the scope and a 6-Niuean x 26 cm double-J stent was threaded over the wire. Good curl was seen within the upper pole and good curl was seen in the bladder under direct vision. I did not adjust the guero nt as there was not enough room in the renal pelvis for full curl. The bladder was then drained of any stone fragments and the scope was removed, 5 mL lidocain e jelly were placed per urethra for local anesthesia and 60 mg B&O suppository was placed per rectum for postoperative discomfort. She was awoken, extubated and taken to recovery in satisfactory condition. She will be admitted back to the floor and hopefully discharge soon. I will remove her stent in 1-2 weeks. ENTICE [facility] THIRD STEP * Brief Operative Note - Janet Aragon MD - 09/21/2019 2:42 PM APPRENTICE [facility] THIRD STEP Brief Operative Note Isiah Do Board 09/21/2019 Event Time In Procedure / Incision Start 09/21/2019 8084 Pre-op Diagnosis: Left ureteral stone Post-op Diagnosis: same Procedure: CYSTOSCOPY, LEFT RETROGRADE PYELOGRAM, LEFT URETEROSCOPY, LASER LITHOTRIPSY, LEF T URETERAL STENT PLACEMENT, Left - Ureter Surgeon(s) and Role: * Janet Aragon MD - Primary Anesthesia Type: General Staff: Trichologist: Janna Pascal RN; Juventino Patel RN Glove Brusher: Jermaine Alcazar Scrub Person: Alex Arredondo Float: Koko Thomas RN; Koko Rodas RN; Lori Mancia CNA Anesthesiologist: Jermaine Hines MD INTERVENTION MANAGER: Bernardino Herrera RN INTERVENTION MANAGER; Rae Louie RN INTERVENTION MANAGER Findings: See dictation Estimated Blood Loss: 0 mL Specimens: . ID Source Type Tests Collected By Collected At A Left Ureter Stone STONE ANALYSIS Janet Aragon MD 09/21/19 1433 Description: left ureter stone Comment: Pre-op diagnosis: N20.1 Implants: Implant Name Type Inv. Item Serial No. Project Estimator Lot No. LRB No. Used Action IMPLANT STENT URETERAL CONTOUR 6FR X 26CM W/O GUID[employer]IRE [id number] - SNA Non-Tissue Implant IMPLANT STENT URETERAL CONTOUR 6FR X 26CM W/O GUIDWIRE 180-2 [id number] NA [employer] [id number] Left 1 Implanted Complications: None Janet Aragon Date: 09/21/2019 Time: 2:42 PM ENTICE [facility] STEP * End of Shift Note - Lauryn Ricardo RN - 09/21/2019 6:07 AM APPRENTICE [facility]EM[facility] THIRD STEP End of Shift Summary and Plan of Care No acute events during shift Fall Prevention Plan Fall prevention interventions and safe environment main tained, see the Daily Cares/Safety flowsheet for documentation. Goals/Plan for Shift Patient/Family stated goal for shift: pain control Nursing goal for shift: pain control Plan: PRN pain meds, repositioning, ambulation Goals/Plan for Hospital Stay Patient/Family stated goal for hospital stay: to pass kidney stone Nursing goal for hospital stay: patient to pass kidney stone Plan: strain all urine, pain meds as needed [facility]NTICE [facility]EM[facility] THIRD STEP * End of Shift Note - Arabella Mccormick RN - 09/20/2019 5:22 PM APPRENTICE [facility]IRD STEP End of Shift Summary and Plan of Care Morphine and percocet given for pain. SBA with walker. No stones in urine. NPO a t midnight Fall Prevention Plan Fall prevention interventions and safe environment main chloe, see the Daily Cares/Safety flowsheet for documentation. Goals/Plan for Shift Patient/Family stated goal for shift: pain control Nursing goal for shift: pain control Plan: PRN pain meds, repositioning, ambulation Goals/Plan for Hospital Stay Patient/Family stated goal for hospital stay: to pass kidney stone Nursing goal for hospital stay: patient to pass kidney stone Plan: strain all urine, pain meds as needed [facility]NTICE [facility] THIRD STEP * Assessment & Plan Note - Abdirizak Garcia NP - 09/20/2019 10:08 AM APPRENTICE [facility] STEP Associated Problem(s): Elevated LFTs (Resolved 09/23/2019) Mild Likely 2/2 fatty liver and acute infection RUQ US without acuity, hepatic steatosis [facility]ICE [facility] THIRD STEP * Assessment & Plan Note - Abdirizak Garcia NP - 09/20/2019 10:05 AM APPRENTICE [facility] THIRD STEP Associated Problem(s): Confusion (Resolved 09/23/2019) Resolved [facility]NTICE [facility] THIRD STEP * Assessment & Plan Note - Art Watts II, DO - 09/20/2019 10:03 AM APPRENTICE [facility]EM[facility] THIRD STEP Associated Problem(s): Morbid obesity due to excess calories (HCC) Complicates all aspects of care Counseled on lifestyle modifications and risk reduction strategies [facility]NTICE [facility]EM[facility] THIRD STEP * Assessment & Plan Note - Art Watts II, DO - 09/20/2019 10:03 AM APPRENTICE [facility]EM[facility] THIRD STEP Associated Problem(s): Chronic respiratory failure (HCC) Pulmonary hygiene Continue home COPD regimen ENTICE [facility]EM[facility] THIRD STEP * Assessment & Plan Note - Art Watts II, DO - 09/20/2019 10:03 AM APPRENTICE LINEMAN THIRD STEP Associated Problem(s): Type 2 diabetes mellitus with hyperglycemia, with long-te rm current use of insulin (HCC) Continue Lantus 25 units at bedtime Severe allergy listed to metformin Start Januvia Follow-up endocrinology as an outpatient Likely made worse by recent steroid use [facility]NTICE [facility] THIRD STEP * Assessment & Plan Note - Art Watts II, - 09/20/2019 10:02 AM APPRENTICE [facility]EM[facility] THIRD STEP Associated Problem(s): SASHA on CPAP CPAP at bedtime ENTICE [facility]EM[facility] THIRD STEP * Assessment & Plan Note - Art Watts II, DO - 09/20/2019 10:01 AM APPRENTICE LINEM[facility] THIRD STEP Associated Problem(s): Essential hypertension Continue chronic home medications ENTICE [facility]EM[facility] THIRD STEP * Assessment & Plan Note - Art Watts II, DO - 09/20/2019 10:00 AM APPRENTICE LINEM[facility] THIRD STEP Associated Problem(s): COPD (chronic obstructive pulmonary disease) ([facility]) Breo Duonebs per home regimen ENTICE LINEM[facility] THIRD STEP * Assessment & Plan Note - Art Watts II, DO - 09/20/2019 9:59 AM APPRENTICE LINEM[facility] THIRD STEP Associated Problem(s): Suspected UTI Resolved Completed 5 days Rocephin ENTICE LINEM[facility] THIRD STEP * Assessment & Plan Note - Art Watts II, DO - 09/20/2019 9:58 AM APPRENTICE LINEMAN THIRD STEP Associated Problem(s): Generalized abdominal pain Resolved ENTICE LINEM[facility] THIRD STEP * Assessment & Plan Note - Art Watts II, DO - 09/20/2019 9:57 AM APPRENTICE LINEMAN THIRD STEP Associated Problem(s): Ureteral calculus, left S/P left ureteral stent placement on 08/30 without improvement, cystoscopy with st ent removal and lithotripsy 09/21 Urology recommends follow-up in 1 to 2 weeks Detrol LA pyridium ENTICE [facility]EM[facility] THIRD STEP * End of Shift Note - Sunny Boyer RN - 09/20/2019 5:37 AM APPRENTICE LINEMAN THIRD STEP End of Shift Summary and Plan of Care No acute events overnight . Pt continue on PRN medication for pain control . Pt vital signs stable . Pt uses call light approprietly . PT NPO for abdominal ultr asound this morning . Will continue to monitor . Fall Prevention Plan Fall prevention interventions and safe environment main tained, see the Daily Cares/Safety flowsheet for documentation. Goals/Plan for Shift Patient/Family stated goal for shift: pain control Nursing goal for shift: pain control Plan: PRN pain meds, repositioning Goals/Plan for Hospital Stay Patient/Family stated goal for hospital stay: to pass kidney stone Nursing goal for hospital stay: patient to pass kidney stone Plan: strain all urine, pain meds as needed ENTICE LINEM[facility] THIRD STEP * End of Shift Note - Arabella Mccormick RN - 09/19/2019 6:06 PM APPRENTICE LINEMAN THIRD STEP End of Shift Summary and Plan of Care Around 1530 pt became diaphoretic and states she "feels weird like she isn't her e and she's confused". Pt able to answer orientation questions appropriately. Bl ood sugar 190. [place], WAREHOUSE FORKLIFT OPERATOR notified and came to bedside. Pt was put in w/c for CT but then pt started feeling worse, unable to get an oral temp, BP 170/90, CT delayed and WAREHOUSE FORKLIFT OPERATOR aware. CT called at [address] Fall Prevention Plan Fall prevention interventions and safe environment main tained, see the Daily Cares/Safety flowsheet for documentation. Goals/Plan for Shift Patient/Family stated goal for shift: pain control Nursing goal for shift: pain control Plan: PRN pain meds, repositioning Goals/Plan for Hospital Stay Patient/Family stated goal for hospital stay: to pass kidney stone Nursing goal for hospital stay: patient to pass kidney stone Plan: strain all urine, pain meds as needed ENTICE LINEMAN THIRD STEP * Significant Event - Hope Cox APRN - 09/19/2019 3:40 PM APPRENTICE LINEMAN THIRD STEP [facility] Hospitalist - Significant Event Patient Name: Isiah Benítez Account No: [id number] Date of : 1950 Date of Admission: 09/17/2019 7:42 AM Ms. Isiah Benítez is a 69 y.o. female who was admitted on 09/17/2019 with Chest p ain. Principal Problem: Ureteral calculus, left Active Problems: Generalized abdominal pain Suspected UTI Confusion COPD (chronic obstructive pulmonary disease) (HCC) Type 2 diabetes mellitus with hyperglycemia, with long-term current use of ins ulin (HCC) Essential hypertension SASHA on CPAP Morbid obesity due to excess calories (HCC) Chronic respiratory failure ([facility]) Elevated LFTs Received message from bedside nurse, Arabella. Patient stating that she feels "we ird like she is not here." Having associated diaphoresis. Blood sugar was chec ked and it was 190. On my arrival patient was sitting up in the recliner and se emed out of it. She was staring off in the direction of the window but was able to answer all my questions appropriately and follow commands. Her head was swe aty. She reported that she felt chilled and "like I am not even here." Vital s igns were checked and blood pressure was elevated with systolic in the 140s 150s and diastolic 100s. Patient reported feeling short of breath. Denies chest pa in, nausea, or vomiting. EKG was performed and showed NSR, no acute ST changes. This was reviewed with o n-call hospitalist Dr. Headley. We will get troponins, blood cultures, CBC, CMP, and lactate now. Chest x-ray a nd CT head ordered. Patient currently being treated for UTI. @ 1840 Reviewed initial labs-troponin <0.01, lactate 2.6, ALT 160, alk phos 210, AST 116, total bilirubin 0.7, WBC 10.54. Awaiting CT head and chest x-ray to be performed. Discussed with swing nurse practitioner and physician who will follow-up on pend ing work-up once that is available. See my orders for additional details regarding this patients treatment plan. Vital Signs: Temp: 36.4 C (97.5 F) Pulse: 79 Resp: 16 BP: 112/75 SpO2: 98 % Height: 157.5 cm (5' 2") Weight: 101.8 kg (224 lb 6.9 oz) I/O last 24 Hours: In: 236 [P.O.:236] Out: 650 [Urine:650] Physical Exam Vitals signs and nursing note reviewed. Constitutional: Appearance: She is ill-appearing and diaphoretic. Eyes: Extraocular Movements: Extraocular movements intact. Conjunctiva/sclera: Conjunctivae normal. Pupils: Pupils are equal, round, and reactive to light. Cardiovascular: Rate and Rhythm: Normal rate and regular rhythm. Pulses: Normal pulses. Heart sounds: Normal heart sounds. No murmur. Pulmonary: Effort: Pulmonary effort is normal. No respiratory distress. Breath sounds: Normal breath sounds. No wheezing, rhonchi or rales. Abdominal: General: Abdomen is flat. Bowel sounds are normal. Palpations: Abdomen is soft. Tenderness: There is no tenderness. Neurological: Mental Status: She is alert and oriented to person, place, and time. Sensory: No sensory deficit. Motor: No weakness. Comments: Follows commands appropriately Psychiatric: Mood and Affect: Mood normal. Behavior: Behavior normal. I have personally reviewed the patient's vital signs, laboratory/pathology/cultu re results (as indicated), current inpatient medications and technician support association notes with pertainent findings noted within the assessment/plan. I have personally sp stephen with the patient, another physican and nursing staff regarding this patient 's case. Room: [address] [place] [address] Diet: Diet-Consistent Carbohydrate (75 gm) Code Status: Full Code Hope Cox APRN [facility] . ENTICE LINEMAN THIRD STEP * Assessment & Plan Note - Hope Cox APRN - 09/19/2019 12:17 PM APPRENTICE LINEMAN THIRD STEP Associated Problem(s): Morbid obesity due to excess calories (HCC) Complicates all aspects of care Strongly recommend dietary changes, lifestyle changes and weight loss ENTICE LINEMAN THIRD STEP * Assessment & Plan Note - Hope Cox APRN - 09/19/2019 12:17 PM APPRENTICE LINEMAN THIRD STEP Associated Problem(s): Chronic respiratory failure (HCC) On chronic O2 prn Monitor Titrate O2 as needed for goal sat >90% ENTICE LINEMAN THIRD STEP * Assessment & Plan Note - Hope Cox APRN - 09/19/2019 12:16 PM APPRENTICE LINEMAN THIRD STEP Associated Problem(s): Type 2 diabetes mellitus with hyperglycemia, with long-te rm current use of insulin (HCC) Last A1c 11.0 in May 2019 BG trends 200-300s Increase Lantus to 25 units nightly Monitor BG ac&hs Increase SSI to level 4 Hypoglycemia protocol, CC diet ENTICE LINEMAN THIRD STEP * Assessment & Plan Note - Hope Cox APRN - 09/19/2019 12:16 PM APPRENTICE LINEMAN THIRD STEP Associated Problem(s): SASHA on CPAP Compliant with CPAP at home Continue home CPAP regimen ENTICE LINEMAN THIRD STEP * Assessment & Plan Note - Hope Cox APRN - 09/19/2019 12:15 PM APPRENTICE LINEMAN THIRD STEP Associated Problem(s): Essential hypertension Systolic (24hrs), Av , Min:129 , Max:145 Continue Metoprolol Resume home dose HCTZ daily Monitor trends ENTICE LINEMAN THIRD STEP * Assessment & Plan Note - Hope Cox APRN - 09/19/2019 12:13 PM APPRENTICE LINEMAN THIRD STEP Associated Problem(s): COPD (chronic obstructive pulmonary disease) ([facility]) Stable. No s/s of acute exacerbation On O2 as needed SUPERINTENDENT OVERHEAD DISTRIBUTION Reports that she was on a Prednisone taper SUPERINTENDENT OVERHEAD DISTRIBUTION and had 4 more days of 20mg Continue Breo and Duonebs per home regimen Titrate O2 to maintain goal O2 sat >90% Resume Prednisone 20mg daily x4 days ENTICE LINEMAN THIRD STEP * Assessment & Plan Note - Hope Cox APRN - 09/19/2019 12:12 PM APPRENTICE LINEMAN THIRD STEP Associated Problem(s): Suspected UTI Patient was recently treated for a [place] UTI. 09/17 UA with +LEUs and WBCs >40, no bacteria; UCx with mixed ciera Continue IV Ceftriaxone for now Repeat UA reflex ENTICE LINEMAN THIRD STEP * Assessment & Plan Note - Hope Cox APRN - 09/19/2019 12:11 PM APPRENTICE LINEMAN THIRD STEP Associated Problem(s): Generalized abdominal pain Patient reports generalized abdominal pain but this is worse in the left lower q uadrant. CT abdomen showed left-sided ureteral calculus. S/p ureteral stent on 08/30 See above plan for ureteral calculus Pain control with PO Percocet and IV Morphine ENTICE LINEMAN THIRD STEP * Assessment & Plan Note - Hope Cox APRN - 09/19/2019 12:11 PM APPRENTICE LINEMAN THIRD STEP Associated Problem(s): Ureteral calculus, left CT abdomen showed left ureteral stent and calculus. S/p left ureteral stent placement on 08/30 Urology following, appreciate assist Continue tolterodine Continue PRN PO Percocet and IV Morphine PRN Levsin and Pyridium Plans for possible ureteroscopy with laser lithotripsy and stent exchange ENTICE LINEMAN THIRD STEP * End of Shift Note - Lizzie Hickey RN - 09/19/2019 2:24 AM APPRENTICE LINEMAN THIRD STEP End of Shift Summary and Plan of Care Patient still having abdominal pain . Will continue and medicate prn. Fall Prevention Plan Fall prevention interventions and safe environment main chloe, see the Daily Cares/Safety flowsheet for documentation. Goals/Plan for Shift Patient/Family stated goal for shift: Sleep Nursing goal for shift: Maximize comfort Plan: Give pain medication Goals/Plan for Hospital Stay Patient/Family stated goal for hospital stay: to pass kidney stone Nursing goal for hospital stay: patient to pass kidney stone Plan: strain all urine, pain meds as needed ENTICE LINEMAN THIRD STEP * End of Shift Note - Tania Moscoso RN - 09/18/2019 5:14 PM APPRENTICE LINEMAN THIRD STEP End of Shift Summary and Plan of Care Pt rested throughout the day, up in the chair some this afternoon. Showered and back in bed in the evening. Continues to complain of ABD pain, educated on PO pa in medications and that IV was breakthrough. Ambulated with staff in the room, t urns self in bed. Fall Prevention Plan Fall prevention interventions and safe environment main tained, see the Daily Cares/Safety flowsheet for documentation. Goals/Plan for Shift Patient/Family stated goal for shift: Reduced abd/flank pain Nursing goal for shift: Reduced pain Plan: Assess for pain PRN and provide PRN pain medication Goals/Plan for Hospital Stay Patient/Family stated goal for hospital stay: to pass kidney stone Nursing goal for hospital stay: patient to pass kidney stone Plan: strain all urine, pain meds as needed ENTICE LINEMAN THIRD STEP * Care Progression Initial Assessment - Fiorella Diana RN - 09/18/2019 5:00 PM APPRENTICE LINEMAN THIRD STEP Care Progression Initial Assessment Note Additional information: patient readmission from 09/07/2019. Assessment unchanged from last admit. PCP, pharmacy, insurance, demographics verified as unchanged. Patient is current with [facility]. She has the support of her daughter whom she live s with currently. Denies any needs at home. Would like to resume home care serv[facility] with [facility]. Referral sent. CC will continue to follow for discharge planning. Referral to see patient was placed by Referral Source: Care Progression Referral Name: Fiorella MALIK RN Fiber Product Cutting Machine Operator, Referral Reason: Initial As sessment, Discharge planning, Psychosocial assessment Initial assessment completed and Information obtained from: : patient Introduced self and purpose of meeting with the patient and is agreeable to inte rview at this time. Patient's Living Arrangement: House Patients support system has been Support System: Children, Extended family Patient has verbalized the following concerns at discharge: Pt has Payor: MEDICARE REPLACEMENT PLAN / Plan: [employer] MEDICARE / Product T ype: *No Product type* / Legal Information: Patient has advance directive, copy not in chart Type of Healthcare Directive: Durable power of corporate associate attorney for health care Copy requested from family/patient Healthcare Agent Appointed: Yes Healthcare Agent's Name: rob Howell Healthcare Agent's Patient currently uses at home: Assistive Devices: Cane, Walker, Nebulizer, Oxyg en, Cpap Patient states their Income Source: Not employed. Retired, Government Assistance: Medicare, SS/SSI Income/Expense Information: Income meets expenses Resources Available: Rx benefits Verified that patients primary care physician is Ebony Sharp MD and recei ves their medications from [id number] - [place], [place] - [phone] [place] [id number] ENTICE LINEMAN THIRD STEP * Assessment & Plan Note - Hope Cox APRN - 09/18/2019 1:34 PM APPRENTICE LINEMAN THIRD STEP Associated Problem(s): Chronic respiratory failure (HCC) On chronic O2 prn Monitor Titrate O2 as needed for goal sat >90% ENTICE [facility]EM[facility] THIRD STEP * End of Shift Note - Lizzie Hickey RN - 09/18/2019 5:11 AM APPRENTICE LINEMAN THIRD STEP End of Shift Summary and Plan of Care Patient received prn pain medications for abdominal pain. Continent and incontin ent of urine. Voided urine strained. Will continue Fall Prevention Plan Fall prevention interventions and safe environment main tained, see the Daily Cares/Safety flowsheet for documentation. Goals/Plan for Shift Patient/Family stated goal for shift: sleep Nursing goal for shift: minimize sleep disruption. Plan: Close door, dim lights.Give PRN sleep aid Goals/Plan for Hospital Stay Patient/Family stated goal for hospital stay: to pass kidney stone Nursing goal for hospital stay: patient to pass kidney stone Plan: strain all urine, pain meds as needed ENTICE LINEMAN THIRD STEP * End of Shift Note - Jaclyn Boston RN - 09/17/2019 5:58 PM APPRENTICE LINEMAN THIRD STEP End of Shift Summary and Plan of Care The patient complains of pain to her lower abdomen after voiding. PRN pain medic ation given. Urine is being strained. The patient thought one of the doctors in ED stated she should be NPO after midnight. No order or note found. Fall Prevention Plan Fall prevention interventions and safe environment main tained, see the Daily Cares/Safety flowsheet for documentation. Goals/Plan for Shift Patient/Family stated goal for shift: pain control Nursing goal for shift: pain management Plan: assess pain during rounds, offer PRN pain medication and heating pad for c omfort Goals/Plan for Hospital Stay Patient/Family stated goal for hospital stay: to pass kidney stone Nursing goal for hospital stay: patient to pass kidney stone Plan: strain all urine, pain meds as needed ENTICE LINEMAN THIRD STEP * Assessment & Plan Note - Hope Cox APRN - 09/17/2019 12:48 PM APPRENTICE LINEMAN THIRD STEP Associated Problem(s): Suspected UTI Patient was recently treated for a Cheyenne UTI. UA with +LEUs and WBCs >40, no bacteria Continue IV Ceftriaxone for now Follow blood and urine cultures ENTICE LINEMAN THIRD STEP * Assessment & Plan Note - Hope Cox APRN - 09/17/2019 12:47 PM APPRENTICE LINEMAN THIRD STEP Associated Problem(s): Ureteral calculus, left CT abdomen showed left ureteral stent and calculus. S/p left ureteral stent placement on 08/30 Urology following, appreciate assist Continue tolterodine DC IV fentanyl Add Percocet 1-2 tabs Q6 PRN IV Morphine Q4 for breakthrough pain PRN Levsin and Pyridium ENTICE LINEMAN THIRD STEP * Assessment & Plan Note - Hope Cox APRN - 09/17/2019 12:46 PM APPRENTICE LINEMAN THIRD STEP Associated Problem(s): Type 2 diabetes mellitus with hyperglycemia, with long-te rm current use of insulin (HCC) Last A1c 11.0 in May 2019 BG trends 200s Increase Lantus to 22 Units nightly Monitor BG ac&hs SSI level 2 Hypoglycemia protocol, CC diet ENTICE LINEMAN THIRD STEP * Assessment & Plan Note - Hope Cox APRN - 09/17/2019 12:46 PM APPRENTICE LINEMAN THIRD STEP Associated Problem(s): SASHA on CPAP Compliant with CPAP at home Continue home CPAP regimen ENTICE LINEMAN THIRD STEP * Assessment & Plan Note - Hope Cox APRN - 09/17/2019 12:46 PM APPRENTICE LINEMAN THIRD STEP Associated Problem(s): Morbid obesity due to excess calories (HCC) Complicates all aspects of care Strongly recommend dietary changes, lifestyle changes and weight loss ENTICE LINEMAN THIRD STEP * Assessment & Plan Note - Hope Cox APRN - 09/17/2019 12:45 PM APPRENTICE LINEMAN THIRD STEP Associated Problem(s): Generalized abdominal pain Patient reports generalized abdominal pain but this is worse in the left lower q uadrant. CT abdomen showed left-sided ureteral calculus. S/p ureteral stent on 08/30 See above plan for ureteral calculus Pain control with PO Percocet and IV Morphine ENTICE LINEMAN THIRD STEP * Assessment & Plan Note - Hope Cox APRN - 09/17/2019 12:45 PM APPRENTICE LINEMAN THIRD STEP Associated Problem(s): Essential hypertension Systolic (24hrs), Av , Min:110 , Max:148 Continue Metoprolol Hold HCTZ for now until taking adequate PO Monitor trends ENTICE LINEMAN THIRD STEP * Assessment & Plan Note - Hope Cox APRN - 09/17/2019 12:44 PM APPRENTICE LINEMAN THIRD STEP Associated Problem(s): COPD (chronic obstructive pulmonary disease) (HCC) Stable. No s/s of acute exacerbation On O2 as needed SUPERINTENDENT OVERHEAD DISTRIBUTION Continue Breo and Duonebs per home regimen Titrate O2 to maintain goal O2 sat >90% ENTICE LINEMAN THIRD STEP * Hospital Course - RadhaAbdirizak, KADEN - 09/17/2019 12:44 PM APPRENTICE LINEMAN THIRD STEP Ms. Isiah Benítez is a 69 y.o. female with past medical history of DM2, SASHA on C PAP, COPD who presented with abdominal pain was admitted on 09/17/2019 for a uret eral calculus. Ms. Benítez has known nephrolithiasis and follows with urology, Dr. Huber. She diggs d a 1.5 cm nonobstructing renal calculus and underwent left ureteroscopy, laser and stent placement on 06/28/2019 as well as 08/02/2019. Her left ureteral stent was removed on 08/10/2019 and stone analysis noted calcium oxalate. She develo ped left Cheyenne pyelonephritis with sepsis on 08/30/2019 for an obstructing 5 mm left proximal ureteral calculus. She underwent cystoscopy and left ureteral guero nt placement on 08/30 and was discharged on 09/07 with p.o. fluconazole. The patient had recurrence of pain in the left flank and left lower quadrant of the abdomen. 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 She was i nitiated on IV Rocephin for an abnormal urinalysis. She underwent cystoscopy wi th stent removal and extraction of stone with additional stent placement on 09/21 . Her urine culture was negative and after 5 days of IV Rocephin, antibiotics w ere discontinued. The patient stay was complicated by her hyperglycemia with glucose readings 200 300s. Her Lantus was adjusted. Ultimately endocrinology did see the patient given her A1c of 12.7%. Of note, the patient was completing a steroid taper for a COPD exacerbation upon admission. To do: 1) follow-up on endocrinology recommendations 2) patient did not have transportation to discharge on 09/22, plans to discharge on 09/23 ENTICE LINEM[facility] THIRD STEP documented in this encounter Plan of Treatment Care Team Description Date [place] [address] [place] [id number] [phone] 02/29/2020 Office Visit Urology Order Schedule Name Type Priority Associated Diag noses 1 Occurrences starting 09/23/2019 until 03/23/2020 Ambulatory referral to Outpatient Routine Pyelone phritis Home Health Referral documented as of this encounter Procedures Comments Procedure Name Priority Date/Time Associated Diag nosis GLUCOSE POC Routine 09/23/2019 12:11 PM APPRENTICE [facility]EMAN THIRD STEP GLUCOSE POC Routine 09/23/2019 8:09 AM APPRENTICE LINEMAN THIRD STEP CBC AND DIFF (MANUAL DIFF Routine 09/23/2019 IF NECESSARY) 3:03 AM APPRENTICE LINEMAN THIRD STEP BASIC METABOLIC PANEL Routine 09/23/2019 3:03 AM APPRENTICE LINEMAN THIRD STEP GLUCOSE POC Routine 09/22/2019 11:39 PM APPRENTICE LINEMAN THIRD STEP GLUCOSE POC Routine 09/22/2019 7:36 PM APPRENTICE LINEMAN THIRD STEP GLUCOSE POC Routine 09/22/2019 4:31 PM APPRENTICE LINEMAN THIRD STEP GLUCOSE POC Routine 09/22/2019 12:16 PM APPRENTICE LINEMAN THIRD STEP GLUCOSE POC Routine 09/22/2019 7:54 AM APPRENTICE LINEMAN THIRD STEP GLUCOSE POC Routine 09/22/2019 5:03 AM APPRENTICE LINEMAN THIRD STEP GLUCOSE POC Routine 09/22/2019 12:22 AM APPRENTICE LINEMAN THIRD STEP GLUCOSE POC Routine 09/21/2019 10:24 PM APPRENTICE LINEMAN THIRD STEP GLUCOSE POC Routine 09/21/2019 7:16 PM APPRENTICE LINEMAN THIRD STEP GLUCOSE POC Routine 09/21/2019 4:53 PM APPRENTICE LINEMAN THIRD STEP PULSE OXIMETRY, Routine 09/21/2019 CONTINUOUS 4:10 PM APPRENTICE LINEMAN THIRD STEP GLUCOSE POC Routine 09/21/2019 3:05 PM APPRENTICE LINEMAN THIRD STEP FL RETROGRADE UROGRAPHY Routine 09/21/2019 IN OR 2:52 PM APPRENTICE LINEMAN THIRD STEP STONE ANALYSIS Timed 09/21/2019 2:33 PM APPRENTICE LINEMAN THIRD STEP CYSTOSCOPY, RETROGRADE 09/21/2019 N20.1 PYELOGRAM, URETEROSCOPY, 2:01 PM APPRENTICE LINEMAN THIRD STEP LASER LITHOTRIPSY, WITH URETERAL STENT PLACEMENT Special Needs ROOM [id number] ORDERING HOMIUM LASER jtBIOMED NOTIFIED REMOVAL, STENT, URETER, 09/21/2019 N20.1 CYSTOSCOPIC 2:01 PM APPRENTICE LINEMAN THIRD STEP Special Needs ROOM [id number] ORDERING HOMIUM LASER jtBIOMED NOTIFIED GLUCOSE POC Routine 09/21/2019 11:34 AM APPRENTICE LINEMAN THIRD STEP GLUCOSE POC Routine 09/21/2019 7:40 AM APPRENTICE LINEMAN THIRD STEP TRIIODOTHYRONINE Add-On 09/21/2019 3:43 AM APPRENTICE LINEMAN THIRD STEP THYROID CASCADE Add-On 09/21/2019 3:43 AM APPRENTICE LINEMAN THIRD STEP T4 FREE Add-On 09/21/2019 3:43 AM APPRENTICE LINEMAN THIRD STEP HEMOGLOBIN A1C Add-On 09/21/2019 3:43 AM APPRENTICE LINEMAN THIRD STEP COMPREHENSIVE METABOLIC Routine 09/21/2019 PANEL 3:43 AM APPRENTICE LINEMAN THIRD STEP CBC AND DIFF (MANUAL DIFF Routine 09/21/2019 IF NECESSARY) 3:43 AM APPRENTICE LINEMAN THIRD STEP GLUCOSE POC Routine 09/20/2019 11:58 PM APPRENTICE LINEMAN THIRD STEP GLUCOSE POC Routine 09/20/2019 8:23 PM APPRENTICE LINEMAN THIRD STEP GLUCOSE POC Routine 09/20/2019 5:01 PM APPRENTICE LINEMAN THIRD STEP GLUCOSE POC Routine 09/20/2019 11:20 AM APPRENTICE LINEMAN THIRD STEP GLUCOSE POC Routine 09/20/2019 7:35 AM APPRENTICE LINEMAN THIRD STEP US ABDOMEN LIMITED Routine 09/20/2019 6:07 AM APPRENTICE LINEMAN THIRD STEP GLUCOSE POC Routine 09/20/2019 4:06 AM APPRENTICE LINEMAN THIRD STEP LACTATE VENOUS WB Timed 09/20/2019 2:19 AM APPRENTICE LINEMAN THIRD STEP COMPREHENSIVE METABOLIC Routine 09/20/2019 PANEL 2:19 AM APPRENTICE LINEMAN THIRD STEP CBC AND DIFF (MANUAL DIFF Routine 09/20/2019 IF NECESSARY) 2:19 AM APPRENTICE LINEMAN THIRD STEP GLUCOSE POC Routine 09/20/2019 12:03 AM APPRENTICE LINEMAN THIRD STEP TROPONIN Timed 09/19/2019 11:12 PM APPRENTICE LINEMAN THIRD STEP LACTATE VENOUS WB Timed 09/19/2019 11:12 PM APPRENTICE LINEMAN THIRD STEP GLUCOSE POC Routine 09/19/2019 10:26 PM APPRENTICE LINEMAN THIRD STEP XR CHEST 2 VIEWS (PA AND Routine 09/19/2019 LATERAL) 9:19 PM APPRENTICE LINEMAN THIRD STEP CT HEAD WO CONTRAST STAT 09/19/2019 9:12 PM APPRENTICE LINEMAN THIRD STEP TROPONIN Timed 09/19/2019 8:15 PM APPRENTICE LINEMAN THIRD STEP LACTATE VENOUS WB Timed 09/19/2019 8:15 PM APPRENTICE LINEMAN THIRD STEP GLUCOSE POC Routine 09/19/2019 7:45 PM APPRENTICE LINEMAN THIRD STEP GLUCOSE POC Routine 09/19/2019 5:09 PM APPRENTICE LINEMAN THIRD STEP CULTURE, BLOOD Timed 09/19/2019 4:56 PM APPRENTICE LINEMAN THIRD STEP CULTURE, BLOOD Timed 09/19/2019 4:53 PM APPRENTICE LINEMAN THIRD STEP TROPONIN STAT 09/19/2019 4:53 PM APPRENTICE LINEMAN THIRD STEP LIPASE Add-On 09/19/2019 4:53 PM APPRENTICE LINEMAN THIRD STEP LACTATE VENOUS WB Routine 09/19/2019 4:53 PM APPRENTICE LINEMAN THIRD STEP COMPREHENSIVE METABOLIC STAT 09/19/2019 PANEL 4:53 PM APPRENTICE LINEMAN THIRD STEP COMPLETE BLOOD COUNT STAT 09/19/2019 4:53 PM APPRENTICE LINEMAN THIRD STEP GLUCOSE POC Routine 09/19/2019 4:35 PM APPRENTICE LINEMAN THIRD STEP ECG Routine 09/19/2019 3:45 PM APPRENTICE LINEMAN THIRD STEP GLUCOSE POC Routine 09/19/2019 3:23 PM APPRENTICE LINEMAN THIRD STEP GLUCOSE POC Routine 09/19/2019 11:48 AM APPRENTICE LINEMAN THIRD STEP URINALYSIS MICROSCOPIC Routine 09/19/2019 ONLY 11:35 AM APPRENTICE LINEMAN THIRD STEP URINALYSIS REFLEX Routine 09/19/2019 11:35 AM APPRENTICE LINEMAN THIRD STEP CULTURE, URINE Routine 09/19/2019 11:35 AM APPRENTICE LINEMAN THIRD STEP GLUCOSE POC Routine 09/19/2019 7:43 AM APPRENTICE LINEMAN THIRD STEP GLUCOSE POC Routine 09/19/2019 3:40 AM APPRENTICE LINEMAN THIRD STEP GLUCOSE POC Routine 09/18/2019 11:31 PM APPRENTICE LINEMAN THIRD STEP GLUCOSE POC Routine 09/18/2019 9:03 PM APPRENTICE LINEMAN THIRD STEP GLUCOSE POC Routine 09/18/2019 5:14 PM APPRENTICE LINEMAN THIRD STEP GLUCOSE POC Routine 09/18/2019 12:16 PM APPRENTICE LINEMAN THIRD STEP CBC AND DIFF (MANUAL DIFF Routine 09/18/2019 IF NECESSARY) 9:49 AM APPRENTICE LINEMAN THIRD STEP GLUCOSE POC Routine 09/18/2019 8:41 AM APPRENTICE LINEMAN THIRD STEP BASIC METABOLIC PANEL Routine 09/18/2019 8:06 AM APPRENTICE LINEMAN THIRD STEP GLUCOSE POC Routine 09/18/2019 4:07 AM APPRENTICE LINEMAN THIRD STEP GLUCOSE POC Routine 09/18/2019 12:04 AM APPRENTICE LINEMAN THIRD STEP LACTATE VENOUS WB Timed 09/17/2019 10:39 PM APPRENTICE LINEMAN THIRD STEP GLUCOSE POC Routine 09/17/2019 7:58 PM APPRENTICE LINEMAN THIRD STEP LACTATE VENOUS WB Timed 09/17/2019 7:24 PM APPRENTICE LINEMAN THIRD STEP GLUCOSE POC Routine 09/17/2019 5:10 PM APPRENTICE LINEMAN THIRD STEP TROPONIN Timed 09/17/2019 3:47 PM APPRENTICE LINEMAN THIRD STEP LACTATE VENOUS WB Timed 09/17/2019 3:47 PM APPRENTICE LINEMAN THIRD STEP CULTURE, BLOOD STAT 09/17/2019 1:02 PM APPRENTICE LINEMAN THIRD STEP CULTURE, BLOOD STAT 09/17/2019 12:38 PM APPRENTICE LINEMAN THIRD STEP TROPONIN STAT 09/17/2019 12:38 PM APPRENTICE LINEMAN THIRD STEP LACTATE VENOUS WB STAT 09/17/2019 12:38 PM APPRENTICE LINEMAN THIRD STEP URINALYSIS MICROSCOPIC STAT 09/17/2019 ONLY 10:05 AM APPRENTICE LINEMAN THIRD STEP URINALYSIS REFLEX STAT 09/17/2019 10:05 AM APPRENTICE LINEMAN THIRD STEP CULTURE, URINE STAT 09/17/2019 10:05 AM APPRENTICE LINEMAN THIRD STEP CT ABDOMEN PELVIS W STAT 09/17/2019 CONTRAST 8:59 AM APPRENTICE LINEMAN THIRD STEP TROPONIN STAT 09/17/2019 8:38 AM APPRENTICE LINEMAN THIRD STEP LIPASE STAT 09/17/2019 8:38 AM APPRENTICE LINEMAN THIRD STEP COMPREHENSIVE METABOLIC STAT 09/17/2019 PANEL 8:38 AM APPRENTICE LINEMAN THIRD STEP CBC AND DIFF (MANUAL DIFF STAT 09/17/2019 IF NECESSARY) 8:38 AM APPRENTICE LINEMAN THIRD STEP XR CHEST SINGLE VIEW STAT 09/17/2019 FRONTAL 7:58 AM APPRENTICE LINEMAN THIRD STEP ECG STAT 09/17/2019 7:44 AM APPRENTICE LINEMAN THIRD STEP PULSE OXIMETRY, STAT 09/17/2019 CONTINUOUS 7:43 AM APPRENTICE LINEMAN THIRD STEP documented in this encounter Results * GLUCOSE POC (09/23/2019 12:11 PM APPRENTICE LINEMAN THIRD STEP) Only the most recent of 39 results within the time period is included. [facility] Glucose POC 166 (H) 70 - 100 mg/dL [facility] Specimen Performing Organization Address City/State/Zipcode Ph one Number [facility] [address] [place] [facility] [place] [address] [facility]EL C[facility] JHONAT[facility] [address] [place] [place] [address], [facility] * Basic Metabolic Panel (09/23/2019 3:03 AM APPRENTICE LINEMAN THIRD STEP) Only the most recent of 2 results within the time period is included. [facility] Sodium 135 133 - 147 MEQ/L [facility] Potassium 3.7 3.5 - 5.3 MEQ/L [facility] Chloride 94 (L) 96 - 112 MEQ/L [facility] Carbon Dioxide 36 (H) 20 - 32 MEQ/L [facility] Anion Gap 5 5 - 17 [facility] Calcium 9.0 8.4 - 10.5 mg/dL [facility] Glucose 146 (H) 70 - 100 mg/dL [facility] Blood Urea 30 (H) 7 - 26 mg/dL [facility] Nitrogen [facility] Creatinine 0.7 0.4 - 1.1 mg/dL [facility] eGFR Female AA 100 60 - 200 [facility] mL/min/1.73sq m [facility] eGFR Female 83 60 - 200 [facility] Non-AA mL/min/1.73sq m [facility] Specimen Blood Performing Organization Address City/State/Zipcode Ph one Number [facility] PRICE JHONATANEugenia [address] [facility] [address] [facility] [address] [facility] [place] [address] [facility] * CBC and Diff (manual diff if necessary) (09/23/2019 3:03 AM APPRENTICE LINEMAN THIRD STEP) Only the most recent of 5 results within the time period is included. WBC 8.80 4.00 - 11.00 TH/uL [facility] RBC 3.48 (L) 4.00 - 5.00 MIL/uL [facility] Hemoglobin 11.3 (L) 12.0 - 15.0 g/dL [facility] Hematocrit 35 (L) 36 - 45 % [facility] MCV 99 80 - 99 fL [facility] MCH 33 27 - 34 pg [facility] MCHC 33 32 - 36 % [facility] RDW 13.6 11.5 - 14.5 % [facility] Platelet Count 172 140 - 400 TH/uL [facility] MPV 10.0 9.4 - 12.3 fL [facility] Nucleated RBCs 0 0 - 0 /100 [facility] % Neutrophils 54 45 - 78 % [facility] %Lymphocytes 34 15 - 47 % [facility] %Monocytes 10 0 - 12 % [facility] %Eosinophils 2 0 - 7 % [facility] %Basophils 0 0 - 2 % [facility] % Imm Grans 0 0 - 1 % [facility] # Granulocytes 4.77 1.7 - 6.8 TH/uL [facility] # Lymphocytes 2.95 1.0 - 3.3 TH/uL [facility] # Monocytes 0.88 0.2 - 0.9 TH/uL [facility] # Eosinophils 0.16 0.0 - 0.4 TH/uL [facility] # Basophils 0.01 0.0 - 0.1 TH/uL [facility] Specimen Blood Performing Organization Address City/State/Zipcode Ph one Number [facility] [address] [facility] [facility] [place] [address] [facility] [address] [facility] [place] [address] [facility] * FL Retrograde Urography in OR (09/21/2019 2:52 PM APPRENTICE LINEMAN THIRD STEP) Specimen Impressions Performed At Fluoroscopic support for the Urology services. Becky teresa see operative LEVI report for details. READING SITE: [facility] Performed At Patient: ISIAH BENÍTEZ Sex#: Paulina #: [id number] Jose #: [id number] Location: [facility] MAIN OR NONE Procedure Requested: [id number] FL RETRO GRADE UROGRAPHY IN OR Reason [...] Rad Results In - 09/21/2019 3:21 PM APPRENTICE LINEMAN THIRD STEP Patient: ISIAH BENÍTEZ Sex#: F #: [id number] Jose#: [id number] Location: [facility] MAIN OR NONE Procedure Requested: [id number] FL RETROGRADE UROGRAPHY IN OR Reason for [...] see operative report for details. READING SITE: [facility] Address City/State/Zipcode Ph one Number [facility] * Stone Analysis (09/21/2019 2:33 PM APPRENTICE LINEMAN THIRD STEP) Stone Color Brown [facility] Stone Size [id number]: Specimen received mm [facility] as fragments. Stone Weight 61.4 mg [facility] Stone CommentComment: Percentage [facility] Composition (Represents the % compositi on) Stone Ca 10 % [facility] oxalate dihydrate Stone Ca 90 % [facility] oxalate monohydr Stone Comment Comment [facility] Comment: Calculi report will follow via computer, mail or partridge farmer delivery. Stone Comment Comment [facility] Comment: Physician questions regarding Calculi Analysis contact [email or web address] at: [phone]. Disclaimer : Comment [facility] Comment: This test was developed and its performance characteristics determined by [email or web address]. It has not been cleared or approved by the Food and Drug Administration. Test performed at [facility] Stone Analysis [address] [place] [address] [place] [address] Source CommentComment: Left Ureter [facility] Specimen Stone - Left Ureter Performing Organization Address City/[facility] Ph one Number [facility] [address] [place], [place] [address] [facility] Interface [phone] [address] * Triiodothyronine (09/21/2019 3:43 AM APPRENTICE LINEMAN THIRD STEP) Triiodothyronin 0.8 (L) 1.0 - 1.7 ng/mL [facility] Specimen Blood Performing Organization Address City/[facility]/Zipcode Ph one Number [facility] [address] [place] [address] LABORATORIES [facility] [address] [place] [address] * T4 Free (09/21/2019 3:43 AM APPRENTICE LINEMAN THIRD STEP) T4 Free 1.0 0.8 - 2.2 ng/dL [facility] Specimen Blood Performing Organization Address City/[facility] Ph one Number [facility] [address] [place] [address] [facility] [address] [place] [address] [facility] * Thyroid [place] (09/21/2019 3:43 AM APPRENTICE LINEMAN THIRD STEP) Thyroid 0.37 (L) 0.47 - 4.68 uIU/mL [facility] Hormone [facility] Specimen Blood Performing Organization Address City/[facility]/Zipcode Ph one Number [facility] [address] [place], [place] [id number] [facility] [address] [place] [address] [facility] * Hemoglobin A1C (09/21/2019 3:43 AM APPRENTICE LINEMAN THIRD STEP) Hemoglobin A1C 12.4 (H) 4.0 - 5.6 % [facility] Comment: Hospital Lab Non-diabetic 4.0 - 5.6 % Prediabetes 5.7 - 6.4 % Diabetes >= 6.5 % Specimen Blood Performing Organization Address City/State/Zipcode Ph one Number [facility] [address] [place] [address] LABORATORIES [facility] [address] [place] [address] * Comprehensive Metabolic Panel (09/21/2019 3:43 AM APPRENTICE LINEMAN THIRD STEP) Only the most recent of 4 results within the time period is included. [facility] Sodium 136 133 - 147 MEQ/L [facility] Potassium 3.9 3.5 - 5.3 MEQ/L [facility] Chloride 96 96 - 112 MEQ/L [facility] Carbon Dioxide 36 (H) 20 - 32 MEQ/L [facility] Anion Gap 5 5 - 17 [facility] Calcium 10.0 8.4 - 10.5 mg/dL [facility] Glucose 107 (H) 70 - 100 mg/dL [facility] Protein Total 7.8 6.0 - 8.2 g/dL [facility] Serum [facility] Albumin 4.1 3.5 - 5.0 g/dL [facility] Alkaline 142 (H) 42 - 140 IU/L [facility] Phosphatase [facility] Alanine 94 (H) 0 - 34 IU/L [facility] Aminotransferas [facility] e [facility] Aspartate 36 15 - 46 IU/L [facility] Aminotransferas [facility] e [facility] Bilirubin Total 0.4 0.2 - 1.3 mg/dL [facility] Blood Urea 26 7 - 26 mg/dL [facility] Nitrogen [facility] Creatinine 0.8 0.4 - 1.1 mg/dL [facility] eGFR Female AA 86 60 - 200 [facility] mL/min/1.73sq m Cedric Mancusos [facility] eGFR Female 72 60 - 200 [facility] Non-AA mL/min/1.73sq m Cedric Ramos [facility] Specimen Blood Performing Organization Address City/State/Zipcode Ph one Number [facility] [address] [place] [address] [facility] [address] [place] [address] [facility] * US Abdomen limited (09/20/2019 6:07 AM APPRENTICE LINEMAN THIRD STEP) Specimen Impressions Performed At Impression: LEVI 1. Diffuse hepatic steatosis without fo rosalind hepatic lesion. 2. Cholecystectomy. ATTESTATION STATEMENT: The Staff Radiologist has personally re viewed this study and agrees with the findings in this report. READING SITE: [facility] Imaging Narrative Performed At Patient: ISIAH BENÍTEZ Sex#: F #: [id number] Jose #: [id number] Location: [place] [address] Access ion#: [id number] Procedure Requested: [id number] US ABDOM EN LIMITED Reason for Exam: [...] Rad Results In - 09/20/2019 7:38 AM APPRENTICE LINEMAN THIRD STEP Patient: ISIAH BENÍTEZ Sex#: Paulina #: 1950 Jose#: [id number] [place] [facility] 4 U 1 4043-01 Procedure Requested: [id number] US ABDOMEN LIMITED Reason for Exam: elevated LFTs Exam Ordered: 09/19/20198 Exam Date/Time: 09/20/2019 0607 Begin exam date/time: [...] the findings in this report. READING SITE: [facility] Imaging Performing Organization Address City/[facility] one Number LEVI * Lactate Venous WB (09/20/2019 2:19 AM APPRENTICE LINEMAN THIRD STEP) Only the most recent of 8 results within the time period is included. Lactate Venous 1.8 0.0 - 2.0 mmol/L [facility] Specimen Blood Narrative Performed At Reflex sepsis screen >2.0 [facility] Performing Organization Address City/[facility] Ph one Number [facility] PRICE JHONATANAlysiaS [address] [facility] [address] [facility] [address] [place] [address] [facility] [address] [place] [address], [place] [phone] [facility] * Troponin - 3 and 6 hr (09/19/2019 11:12 PM APPRENTICE LINEMAN THIRD STEP) Only the most recent of 6 results within the time period is included. Troponin <0.01 0.00 - 0.03 ng/mL [facility] Comment: Cedric Ramos Troponin Value [facility] Interpretation 0.00 - 0.03 Healthy 0.04 - 0.12 Increased Cardiac Risk >0.12 Myocardial Infarction Troponin may not become elevated until 6 to 8 hours after onset of symptoms. Specimen Blood Performing Organization Address City/State/Zipcode Ph one Number [facility] [address] [place] [address] [facility] [address] [place] [address] [facility] * XR Chest 2 views (PA and lateral) (09/19/2019 9:19 PM APPRENTICE LINEMAN THIRD STEP) Specimen Impressions Performed At 1. Bibasilar subsegmental atelectasis. LEVI READING SITE: [facility] Narrative Performed At Patient: ISIAH BENÍTEZ Sex#: F #: 1950 Jose #: [id number] Location: [place] [address] Access ion#: [id number] Procedure Requested: [id number] XR CHEST 2 VIEWS (PA AND LATERAL) [...] Rad Results In - 09/19/2019 9:54 PM APPRENTICE LINEMAN THIRD STEP Patient: ISIAH BENÍTEZ Sex#: F #: 1950 Jose#: [id number] Location: [facility] 4 U 1 4042-08 Procedure Requested: [id number] XR CHEST 2 VIEWS (PA AND LATERAL) Reason for Exam: dyspnea Exam Ordered: 09/19/2019 1541 Exam Date/Time: 09/19/2019 2119 Begin exam date/time: 09/19/2019 211 XR CHEST 2 VIEWS (PA AND LATERAL) INDICATION: dyspnea. COMPARISON STUDY: None. FINDINGS: Life Support Devices: None. Lungs/Pleura: Normal lung volume. No focal airspace disease. Bibasilar subsegmental atelectasis Normal pulmonary vasculature. No pleural effusion or pneumothorax Heart and Mediastinum: Stable cardiomediastinal silhouette and great vessels. Bones and Soft Tissues: Stable regional skeleton and soft tissues. IMPRESSION 1. Bibasilar subsegmental atelectasis. READING SITE: [facility] Performing Organization Address City/State/[facility] Ph one Number [facility] * CT Head wo contrast (09/19/2019 9:12 PM APPRENTICE LINEMAN THIRD STEP) Specimen Impressions Performed At Impression: LEVI No acute intracranial process. Mild cerebral volume loss. Mild chronic small vessel ischemic disease. The above findings are in general agree ment with those in the preliminary report provided by [email or web address]. READING SITE: [facility]. ATTESTATION STATEMENT: The Staff Radiol ogist has personally reviewed the images and dictated, reviewed, or edite d the final report. Narrative Performed At Patient: ISIAH BENÍTEZ Sex#: F #: 1950 Jose #: [id number] [place] [facility] [place] 1 4042-08 Access ion#: [id number] Procedure Requested: [id number] CT HEAD WO CONTRAST Reason for Exam: [...] The mastoid air cells are clear. The cook helper juice topogram shows no lytic lesio n or fracture. Procedure Note Interface, Rad Results In - 09/20/2019 10:19 AM APPRENTICE LINEMAN THIRD STEP Patient: ISIAH BENÍTEZ Sex#: Paulina #: 1950 Jose#: [id number] Location: [place] [address] Procedure Requested: [id number] CT HEAD WO CONTRAST Reason for Exam: [...] The mastoid air cells are clear. The cook helper juice topogram shows no lytic lesion or fracture. IMPRESSION Impression: No acute intracranial process. Mild cerebral volume loss. Mild chronic small vessel ischemic disease. The above findings are in general agreement with those in the preliminary report provided by [employer]. READING SITE: [facility]. ATTESTATION STATEMENT: The Staff Radiologist has personally reviewed the images and dictated, reviewed, or edited the final report. Performing Organization Address [facility] one Number [facility] * Culture, Blood (09/19/2019 4:56 PM APPRENTICE LINEMAN THIRD STEP) Only the most recent of 4 results within the time period is included. Culture Result No Growth at 5 days [facility] Specimen Blood Narrative Performed At 3ml rfa [facility] Performing Organization Address [facility] one Number [address] [address] LABORATORIES [facility] [address] [place] [id number] * Lipase (09/19/2019 4:53 PM APPRENTICE LINEMAN THIRD STEP) Only the most recent of 2 results within the time period is included. Lipase 143 23 - 300 IU/L [facility] Specimen Blood Performing Organization Address [facility] one Number [facility] [address] [facility] [place], [place] [id number] [facility] [address] [facility] [place] [address] [facility] * Complete Blood Count (09/19/2019 4:53 PM APPRENTICE LINEMAN THIRD STEP) WBC 10.54 4.00 - 11.00 TH/uL [facility] RBC 4.33 4.00 - 5.00 MIL/uL [facility] Hemoglobin 14.0 12.0 - 15.0 g/dL [facility] Hematocrit 43 36 - 45 % [facility] MCV 99 80 - 99 fL [facility] MCH 32 27 - 34 pg [facility] MCHC 33 32 - 36 % [facility] RDW 13.1 11.5 - 14.5 % [facility] Platelet Count 197 140 - 400 TH/uL [facility] MPV 10.5 9.4 - 12.3 fL [facility] Nucleated RBCs 0 0 - 0 /100 [facility] Specimen Blood Performing Organization Address City/State/Zipcode Ph one Number [facility] [address] [facility] [place] [address] [facility] [address] [facility] [place] [address] [facility] * Electrocardiogram (ECG) (09/19/2019 3:45 PM APPRENTICE LINEMAN THIRD STEP) Only the most recent of 2 results within the time period is included. QRSd 108 TRACEMASTER QT 384 TRACEMASTER QTC 454 TRACEMASTER ECGHR 84 TRACEMASTER ECGPR 144 TRACEMASTER Specimen Narrative Performed At 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 : 1950 Requested By: HOPE COX Order Number: [id number] Reading MD: Louie Reyes Measurements Intervals [place] Rate: 84 P: 38 OR: 144 QRS: 3 QRSD: 108 T: 24 QT: 384 QTc: 454 Interpretive Statements SINUS RHYTHM PROBABLE LEFT VENTRICULAR HYPERTROPHY Electronically Signed On 09-20-2019 10:3 7:02 APPRENTICE LINEMAN THIRD STEP by Louie Reyes Procedure Note Interface, External Ris In - 09/20/2019 10:37 AM APPRENTICE LINEMAN THIRD STEP [facility] Test Date: 2019-09-19 Pat Name: ISIAH BENÍTEZ Department: SP1 Room: 4043 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: [id number] : 1950 Requested By: HOPE COX Order Number: [id number] Reading MD: Louie Reyes Measurements Intervals [place] Rate: 84 P: 38 OR: 144 QRS: 3 QRSD: 108 T: 24 QT: 384 QTc: 454 Interpretive Statements SINUS RHYTHM PROBABLE LEFT VENTRICULAR HYPERTROPHY Electronically Signed On 09-20-2019 10:37:02 APPRENTICE LINEMAN THIRD STEP by Louie Reyes Performing Organization Address [facility] one Number TRACEMASTER * Urinalysis Microscopic Only (09/19/2019 11:35 AM APPRENTICE LINEMAN THIRD STEP) Only the most recent of 2 results within the time period is included. Microscopic RBC >40 (A) 0 - 5 /hpf [facility] Microscopic WBC 0-5 0 - 5 /hpf [facility] Epithelial Absent Absent [facility] Cells [facility] Hyaline Cast Absent Absent [facility] Bacteria Absent Absent [facility] Specimen Catheter Urine Performing Organization Address [facility] one Number [facility] [address] [facility] [place], [place] [id number] [facility] [address] [facility] [place] [address] [facility] * Culture, Urine (09/19/2019 11:35 AM APPRENTICE LINEMAN THIRD STEP) Only the most recent of 2 results within the time period is included. Culture Result No growth [facility] Specimen Catheter Urine Performing Organization Address [facility] one Number [address] [address] LABORATORIES [facility] [address] [place] [address] * Urinalysis Reflex (09/19/2019 11:35 AM APPRENTICE LINEMAN THIRD STEP) Only the most recent of 2 results within the time period is included. Appearance, Yellow [facility] U[facility] Glucose Urine >=1000 (A) Negative mg/dL [facility] Bilirubin Urine Negative Negative [facility] Ketones Urine Negative Negative mg/dL [facility] Specific 1.020 1.001 - 1.030 [facility] [place], UA [facility] Hemoglobin Large (A) Negative [facility] Urine [facility] PH Urine 5.5 5.0 - 8.0 [facility] Protein Urine 30 (A) Negative mg/dL [facility] Qual [facility] Urobilinogen Negative Negative EU/dL [facility] Urine [facility] Nitrite Urine Negative Negative [facility] Leukocyte Negative Negative [facility] Esterase [facility] Specimen Catheter Urine Performing Organization Address City/State/[facility] Ph one Number [facility] [address] [facility] [place] [address] [facility] [address] [facility] [place] [address] [facility] * CT Abdomen Pelvis w contrast (09/17/2019 8:59 AM APPRENTICE LINEMAN THIRD STEP) Specimen Impressions Performed At 1. Interval placement [...] biliary obstruction, if clinically warranted. READING SITE: [facility] ATTESTATION STATEMENT: The staff radiol ogist has personally reviewed the images and dictated, reviewed, or edite d the final report. Narrative Performed At Patient: ISIAH BENÍTEZ Sex#: Paulina #: 1950 Jose #: [id number] [place] [facility] [place] Procedure Requested: [id number] CT ABDOM EN PELVIS W CONTRAST Reason [...] Rad Results In - 09/17/2019 9:54 AM APPRENTICE LINEMAN THIRD STEP Patient: ISIAH BENÍTEZ Sex#: F #: 1950 Jose#: [id number] Location: [facility] SED-11 Procedure Requested: [id number] CT ABDOMEN PELVIS W CONTRAST Reason for [...] biliary obstruction, if clinically warranted. READING SITE: [facility] ATTESTATION STATEMENT: The staff radiologist has personally reviewed the images and dictated, reviewed, or edited the final report. Performing Organization Address City/State/Zipcode Ph one Number [facility] * XR Chest single view frontal (09/17/2019 7:58 AM APPRENTICE LINEMAN THIRD STEP) Specimen Impressions Performed At 1. No acute cardiopulmonary abnormality. LEVI 2. Low lung volumes. Mild atelectasis . READING SITE: [facility] Narrative Performed At Patient: ISIAH BENÍTEZ Sex#: F #: 1950 Jose #: [id number] Location: [facility] SED-11 Procedure Requested: [id number] XR CHEST SINGLE VIEW FRONTAL Reason for [...] Rad Results In - 09/17/2019 8:14 AM APPRENTICE LINEMAN THIRD STEP Patient: ISIAH BENÍTEZ Sex#: F #: 1950 Jose#: [id number] [place] [facility] [place] Procedure Requested: [id number] XR CHEST SINGLE VIEW FRONTAL Reason for [...] Low lung volumes. Mild atelectasis. READING SITE: [facility] Address City/State/Zipcode Ph one Number [place] documented in this encounter Visit Diagnoses Not on filedocumented in this encounter Administered Medications Action Date Dose Rate Site Medication Order MAR Action 09/22/2019 8:23 PM APPRENTICE LINEMAN THIRD STEP 25 mg amitriptyline (ELAVIL) tablet 25 mg Given 25 mg, Oral, Nightly, First dose on 09/17/19 at 2100 25 mg Given 09/21/2019 8:13 PM APPRENTICE LINEMAN THIRD STEP 25 mg Given 09/20/2019 10:13 PM APPRENTICE LINEMAN THIRD STEP 09/22/2019 8:23 PM APPRENTICE LINEMAN THIRD STEP 40 mg atorvastatin (LIPITOR) tablet 40 mg Given 40 mg, Oral, Nightly, First dose on 09/17/19 at 2100 40 mg Given 09/21/2019 8:13 PM APPRENTICE LINEMAN THIRD STEP 40 mg Given 09/20/2019 10:13 PM APPRENTICE LINEMAN THIRD STEP 09/21/2019 2:35 PM APPRENTICE LINEMAN THIRD STEP 1 suppository belladonna-opium (B&O SUPPRETTES) Given 16.2-60 MG suppository As needed, Starting Ju 09/21/19 at 1435 , Intra-op 09/23/2019 8:23 AM APPRENTICE LINEMAN THIRD STEP 20 mg citalopram (CeleXA) tablet 20 mg Given 20 mg, Oral, Daily, First dose on 09/17/19 at 1240 20 mg Given 09/22/2019 8:50 AM APPRENTICE LINEMAN THIRD STEP 20 mg Given 09/20/2019 9:00 AM APPRENTICE LINEMAN THIRD STEP 09/17/2019 8:04 PM APPRENTICE LINEMAN THIRD STEP 10 mg cyclobenzaprine (FLEXERIL) tablet 10 mg Given 10 mg, Oral, 3 times daily PRN, muscle spasms, Starting 09/17/19 at 1238 dextrose 10% (D10W) bolus 125-250 mL 125-250 mL, Intravenous, at 500-1,000 mL/hr, As needed, low blood sugar, Starting 09/17/19 at 1240, Give if patient NPO and IV access already available. If no IV access give Glucagon SQ or IM in arm and turn patient on side. For blood glucose (BG): Less than 50 mg/dL: Give D10W 250 mL. Check BG every 15 minutes and repea t until greater than 80 mg/dL. Less than 70 mg/dL: Give D10W 125 mL. Check BG every 15 minutes and repeat until greater than 80 mg/dL. Less than 70 mg/dL and patient unconscious: Give D10 W 250 mL. Call physician for additional orders. Check BG every 15 minutes and repeat until greater than 80 mg/dL. Once blood glucose greater than 80 mg/dL, check BG in one hour. Call physician if less than 70 mg/dL., dextrose 50% (D50W) syringe 25-50 mL 25-50 mL, Intravenous, As needed, low blood sugar, for 24 hours., Starting [place] n 09/17/19 at 1240, 25-50 mL, Intravenous, As needed, low blood sugar, for 24 hours, Give if patient NPO and IV acces s already available. If no IV access give Glucagon SQ or IM in arm and turn patient on side. For blood glucose (BG) : Less than 50 mg/dL: Give D50W 50 mL. Check BG every 15 minutes and repeat until greater than 80 mg/dL. Less than 70 mg/dL: Give D50W 25 mL. Check BG every 15 minutes and repeat until greater than 80 mg/dL. Less than 70 mg/dL and patient unconscious: Give D50 W 50 mL. Call physician for additional orders. Check BG every 15 minutes and repeat until greater than 80 mg/dL. Onc e blood glucose greater than 80 mg/dL, check BG in one hour. Call physician if less than 70 mg/dL., 09/22/2019 10:31 AM APPRENTICE LINEMAN THIRD STEP 100 mg docusate sodium (COLACE) capsule 100 mg Given 100 mg, Oral, 2 times daily PRN, stool softening, Starting Wed09/17/19 at 1238 , DO NOT CRUSH OR CHEW., 100 mg Given 09/20/2019 9:00 AM APPRENTICE LINEMAN THIRD STEP 100 mg Given 09/17/2019 5:47 PM APPRENTICE LINEMAN THIRD STEP fentaNYL (SUBLIMAZE) injection 12.5 mcg 12.5 mcg, Intravenous, Every 2 hours PRN, severe pain (pain score 7-10), breakthrough pain, pain if unable to tolerate oral medications, Starting Wed09/22/19 at 1024, Administer over 2 minutes; max dose for IVP is 2 mcg/kg. Note: Limit does not apply to patients who may be tolerant to opioid therapy o r on continuous IV or PO opiate therapy., 09/23/2019 8:10 AM APPRENTICE LINEMAN THIRD STEP 1 puff fluticasone furoate-vilanterol (BREO Given ELLIPTA) 200-25 mcg/actuation inhaler 1 puff 1 puff, Inhalation, Daily, First dose o n Wed09/17/19 at 1240, Rinse mouth with water after use if patient not on vent. , 1 puff Given 09/22/2019 8:51 AM APPRENTICE LINEMAN THIRD STEP 1 puff Given 09/21/2019 8:11 AM APPRENTICE LINEMAN THIRD STEP 09/23/2019 8:23 AM APPRENTICE LINEMAN THIRD STEP 600 mg gabapentin (NEURONTIN) capsule 600 mg Given 600 mg, Oral, 3 times daily, First dose on Wed09/17/19 at 1240 600 mg Given 09/22/2019 8:23 PM APPRENTICE LINEMAN THIRD STEP 600 mg Given 09/22/2019 4:07 PM APPRENTICE LINEMAN THIRD STEP glucagon (GLUCAGEN) injection 1 mg 1 mg, Intramuscular, As needed, low blood sugar, low blood sugar, Starting Wed09/17/19 at 1240, Give if patient WAREHOUSE FORKLIFT OPERATOR O and no IV access. May give IM or SQ in arm and turn patient on side. Reconstitute powder for injection by adding 1 mL of frozen food department manager-supplied sterile diluent or sterile water for injection to a vial containing 1 unit o f the drug, to provide solutions containing 1 mg of glucagon/mL. Shake vial gently to dissolve., glucagon (GLUCAGEN) injection 1 mg 1 mg, Subcutaneous, As needed, low bloo d sugar, low blood sugar, Starting 09/17/19 at 1240, Give if patient NPO an d no IV access. May give IM or SQ in arm and turn patient on side. Reconstitute powder for injection by adding 1 mL of frozen food department manager-supplied sterile diluent o r sterile water for injection to a vial containing 1 unit of the drug, to provide solutions containing 1 mg of glucagon/mL. Shake vial gently to dissolve., glucose chewable tablet 16-32 g 16-32 g, Oral, As needed, low blood sugar, Starting 09/17/19 at 1240, Give food, drink, or glucose tablets to treat low blood glucose if patient able to eat. For blood glucose (BG): Less than 50 mg/dL: Give 30 g of carbohydrat e (32 g if using glucose tablets). Check BG every 15 minutes and repeat until greater than 80 mg/dL. Less than 70 mg/dL: Give 15 g of carbohydrate (16 g if using glucose tablets). Check BG every 15 minutes and repeat until greater than 80 mg/dL. Less than 70 mg/dL and patient unconscious: BG to be treated with D50W until greater than 80 mg/dL. Once BG greater than 80 mg/dL, give 30 g of carbohydrate (32 g if usin g glucose tablets) if patient awake and able to swallow. Once blood glucose greater than 80 mg/dL, check BG in one hour. Call physician if less than 70 mg/dL., 09/23/2019 8:23 AM APPRENTICE LINEMAN THIRD STEP 25 mg hydroCHLOROthiazide (HYDRODIURIL) tablet Given 25 mg 25 mg, Oral, Daily, First dose on Wed09/20/19 at 0900 25 mg Given 09/22/2019 8:50 AM APPRENTICE LINEMAN THIRD STEP 25 mg Given 09/20/2019 9:00 AM APPRENTICE LINEMAN THIRD STEP 09/21/2019 8:13 PM APPRENTICE LINEMAN THIRD STEP 0.125 mg hyoscyamine (LEVSIN/SL) SL tablet 0.125 Given mg 0.125 mg, Sublingual, Every 4 hours PRN , bladder spasms, Starting 09/18/19 at 0905 0.125 mg Given 09/20/2019 2:37 PM APPRENTICE LINEMAN THIRD STEP 0.125 mg Given 09/18/2019 11:59 PM APPRENTICE LINEMAN THIRD STEP 09/22/2019 9:31 PM APPRENTICE LINEMAN THIRD STEP 25 Units Left Low er Abdomen insulin glargine (LANTUS) injection 25 Given Units 25 Units, Subcutaneous, Nightly, First dose (after last modification) on Wed09/19/19 at 2100 25 Units Left Lower Abdomen Given 09/21/2019 8:14 PM APPRENTICE LINEMAN THIRD STEP 25 Units Right Lower Abdomen Given 09/20/2019 9:00 PM APPRENTICE LINEMAN THIRD STEP 09/23/2019 12:39 PM APPRENTICE LINEMAN THIRD STEP 3 Units Right Lo wer Abdomen insulin lispro (HumaLOG) injection 3-18 Given Units 3-18 Units, Subcutaneous, 4 times daily before meals and nightly, First dose on Wed09/19/19 at 2100, LEVEL 5 Give in addition to scheduled mealtime insulin per table Glucose Level (mg/dL) Dose <120 No Insulin 121-150 No Insulin 151-200 3 units 201-250 6 units 251-300 9 units 301-350 12 units 351-400 15 units >400 18 units Bedtim e Correction - If glucose level is < 200, do not give any correction dose If glucose level is > 200, give full dose of correction dose and check BG @ 0000 and 0300 DO NOT GIVE for any 2 hours post meal fingerstick blood glucose checks If pt NPO or on continuous enteral/parenteral nutrition - give wit h scheduled fingerstick blood glucose check - dose per table, 12 Units Left Lower Abdomen Given 09/22/2019 9:31 PM APPRENTICE LINEMAN THIRD STEP 15 Units Left Lower Abdomen Given 09/22/2019 4:41 PM APPRENTICE LINEMAN THIRD STEP 09/21/2019 2:35 PM APPRENTICE LINEMAN THIRD STEP 1 application Operativ e Site lidocaine (GLYDO) 2 % jelly Given As needed, Starting Ju 09/21/19 at 1435 , Intra-op 09/21/2019 10:16 PM APPRENTICE LINEMAN THIRD STEP 3 mg melatonin tablet 3 mg Given 3 mg, Oral, Nightly PRN, sleep, Startin g 09/17/19 at 1238, Give 3-4 hours prior to planned bedtime., 3 mg Given 09/20/2019 10:13 PM APPRENTICE LINEMAN THIRD STEP 3 mg Given 09/19/2019 8:22 PM APPRENTICE LINEMAN THIRD STEP 09/23/2019 8:23 AM APPRENTICE LINEMAN THIRD STEP 100 mg metoprolol tartrate (LOPRESSOR) tablet Given 100 mg 100 mg, Oral, 2 times daily, First dose on 09/17/19 at 1315, Hold for SBP <100, HR <55, 100 mg Given 09/22/2019 8:23 PM APPRENTICE LINEMAN THIRD STEP 100 mg Given 09/22/2019 8:49 AM APPRENTICE LINEMAN THIRD STEP 09/23/2019 8:23 AM APPRENTICE LINEMAN THIRD STEP 2 tablets oxyCODONE-acetaminophen (PERCOCET) 5-325 Given mg 1-2 tablet 1-2 tablet, Oral, Every 6 hours PRN, moderate pain (pain score 4-6), severe pain (pain score 7-10), Starting 09/18/19 at 1139, Do not exceed 4 GM/DAY of acetaminophen. If 65 or older do no t exceed 3 GM/DAY. If chronic alcoholic d o not exceed 2 GM/DAY., 2 tablets Given 09/23/2019 2:00 AM APPRENTICE LINEMAN THIRD STEP 2 tablets Given 09/22/2019 7:48 PM APPRENTICE LINEMAN THIRD STEP 09/22/2019 10:31 AM APPRENTICE LINEMAN THIRD STEP 100 mg phenazopyridine (PYRIDIUM) tablet 100 mg Given 100 mg, Oral, 3 times daily PRN, dysuria, Starting 09/18/19 at 0906 potassium bicarb-citric acid (EFFER-K) effervescent tablet 20 mEq 20 mEq, Oral, As needed, standard electrolyte replacement, Starting 09/17/19 at 1237, Administer if unable t o swallow potassium tablets. Replace in addition to any scheduled potassium doses. Administer 20 mEq every hour x 2 doses (total dose = 40 mEq) for potassium level 3.0 to 3.4 mg/dL. Repea t potassium level in AM. Administer 20 mE q every hour x 3 doses (total dose = 60 mEq) for potassium level less than or equal to 2.9. Repeat potassium level 4 hours after last oral dose administered . Administer only if serum creatinine is less than 2 within the previous 48 hour s and sustained urine output is greater than 20 mL/hr for 6 hours (if able to monitor). Completely dissolve tablet in 3 to 4 ounces (90-120 mL) of cold juice or water before administering. For flui d restricted patients, a smaller volume may be used to dilute (e.g. 15-30 mL)., potassium chloride (KLOR-CON) CR tablet 20 mEq 20 mEq, Oral, As needed, standard electrolyte replacement, Starting 09/17/19 at 1237, Replace in addition to any scheduled potassium doses. Administer 20 mEq every hour x 2 doses (total dose = 40 mEq) for potassium level 3.0 to 3.4 mg/dL. Repeat potassiu m level in AM. Administer 20 mEq every hour x 3 doses (total dose = 60 mEq) fo r potassium level less than or equal to 2.9. Repeat potassium level 4 hours after last oral dose administered. Administer only if serum creatinine is less than 2 within the previous 48 hour s and sustained urine output is greater than 20 mL/hr for 6 hours (if able to monitor). DO NOT CRUSH OR CHEW., potassium chloride 20 mEq in 100 mL IVP B 20 mEq, Intravenous, Administer over 2 Hours, As needed, standard electrolyte replacement, Starting 09/17/19 at 1237, Administer if unable to take oral potassium. Replace in addition to any scheduled potassium doses. Administer 20 mEq x 2 doses (total dose = 40 mEq) for potassium level 3.0 to 3.4 mg/dL. Repeat potassium level in AM. Administe r 20 mEq x 3 doses (total dose = 60 mEq) for potassium level less than or equal to 2.9. Repeat potassium level 2 hours after last infusion complete. Administer only if serum creatinine is less than 2 within the previous 48 hour s and sustained urine output is greater than 20 mL/hr for 6 hours (if able to monitor). Potassium chloride should be infused at a rate of 10 mEq/hr through a peripheral line, or at a rate of 20 mEq/hr through a central line., 09/17/2019 1:12 PM APPRENTICE LINEMAN THIRD STEP 5 mg prochlorperazine (COMPAZINE) injection Given 2.5-5 mg 2.5-5 mg, Intravenous, Every 4 hours PRN, nausea/vomiting (1st line), Starting 09/17/19 at 1238, May repea t 2.5 mg dose x 1 after 30 minutes if first dose ineffective. Do not exceed a total dose of 40 mg within a 24 hour period. Rate of administration should not exceed 5 mg/minute., prochlorperazine (COMPAZINE) injection 2.5-5 mg 2.5-5 mg, Intramuscular, Every 4 hours PRN, nausea/vomiting (1st line), Starting 1/26/20 at 1238, Administe r if patient does not have IV access. May repeat 2.5 mg dose x 1 after 60 minutes if first dose ineffective. Do not exceed a total dose of 40 mg within a 2 4 hour period., prochlorperazine (COMPAZINE) suppositor y 25 mg 25 mg, Rectal, Every 12 hours PRN, nausea/vomiting (1st line), Starting Ramirez n 09/17/19 at 1238, Administer if patient does not have IV access and refuses IM injection., 09/21/2019 2:28 PM APPRENTICE LINEMAN THIRD STEP 3,000 mL sodium chloride irrigation 3000 mL Given (bladder) (NS) 0.9 % As needed, Starting Ju 09/21/19 at 1426 , Intra-op 3,000 mL Given 09/21/2019 2:26 PM APPRENTICE LINEMAN THIRD STEP 09/23/2019 9:07 AM APPRENTICE LINEMAN THIRD STEP 2 mg tolterodine (DETROL) tablet 2 mg Given 2 mg, Oral, 2 times daily, First dose o n 09/17/19 at 1240 2 mg Given 09/22/2019 8:26 PM APPRENTICE LINEMAN THIRD STEP 2 mg Given 09/22/2019 8:50 AM APPRENTICE LINEMAN THIRD STEP documented in this encounter Additional Health Concerns Resolved Time Infection Noted Time 09/17/2019 8:17 AM APPRENTICE LINEMAN THIRD STEP RSV 08/31/2019 6:35 PM APPRENTICE LINEMAN THIRD STEP documented as of this encounter
--- OUTSIDE RECORDS SUMMARY | 2019-11-28 22:15 | XMS REPORT | Encounter Summary ---
Author Author [facility] Organization [facility] Address Unknown Phone Unavailable Care Team Providers Care [employer]otive Exhaust Emissions Technician Name Role Phone Ebony Sharp MD PCP Reason for Visit * Auth/Cert Referred By Contact Referred To Contact Status Reason Specialty Diagnoses / Procedures Diagnoses Pyelonephritis Sepsis, due to unspecified organism, unspecified whether acute organ dysfunction present (HCC) Encounter Details Care Team Description Date Type Department Jermaine Hines MD [address], [place] [id number] Bernardino Herrera RN HOUSEKEEPING COORDINATOR [address] [place], [place] [id number] 09/21/2019 Anesthesia [facility] [address] [place], [place] [id number] Anesthesia Record Responsible Anesthesiologist Anesthesia Start Time Anesthesi a Stop Time Procedure Name Jermaine Hines MD 09/21/19 1401 09/21/19 1446 CYSTOSCOPY, LEFT URETERAL STENT REMOVAL (Left Ureter) Date Time Event Comment 1344 135 AN Equip Check 1401 An Start 1401 In room 1401 An Start Data 1401 Pt eval immediately prior to anesthesia 1401 Preoxygenated Prior to Induction 1406 An Induction 1406 An LMA 1406 PreOp Abx complete 1406 Anesthesia Ready 1412 Time out complete 1412 No Abx per surgeon 1414 Procedure start - Primary Case 1414 Spontaneous respirations 1436 Procedure stop - Primary case 1436 LMA Removed 1438 an stop data 1440 Out of Room 1446 Handoff I completed my SBAR handoff to the receiving nurse in the PACU/ICU/OB Patient and PACU/ICU/OB nurse identifie d Discussed patient medical history Discussed procedure Reviewed intraopera tive anesthetic management and issues/concerns Discussed expectation f or early post-procedure period Questions from PACU/ICU/OB team address ed 1446 An Stop Meds Name Total lidocaine 1% (PF) 100 mg propofol 10mg/mL 150 mg ondansetron 2mg/mL 4 mg lactated ringers infusion 300 mL * Name Cell Saver Blood Intake O2 N2O Air EtSEVO EtISO EtDES EtN2O * No blood administrations on file. Removal Type Details Placement 09/23/19 1332 by Apple Liriano RN Ultrasound Date: 09/17/19; Time: 1259; Size 09/17 1259 by Jaylyn Song Guided (gauge): 20 G; Location: Antecubital; ADAM Batres Peripheral Local Anesthetic: None; Ins ertion IV Attempts: 2; Inserted By: Ernestina Batres RN; Removal Date: 09/23/19; Removal Time: 1332 09/27/19 1145 by Aury Louis RN Wound 09/17/19; 1410; Coccyx; Healed; 1410 by Jaclyn 09/27/19; 1145 ADAM [place] 09/21/19 1436 by Rae Louie RN HOUSEKEEPING COORDINATOR Non-Surgic Date: 09/21/19; Time: 1406; Able to mas k 09/21/19 1406 by Bernardino lyons Airway ventilate prior to placement: Yes; Arslan lewis RN HOUSEKEEPING COORDINATOR Placed By: Charge Gang Weigher; Site: Oral; Size: 4; Placement Verified By: Auscultation, Capnometry; Removal Date: 09/21/19; Removal Time: 1436 documented in this encounter Social History Date Tobacco Use Types Packs/Day [...] as of this encounter Miscellaneous Notes * Anesthesia Postprocedure Evaluation - Jermaine Hines MD - 09/21/2019 3:41 PM CARTRIDGE LOADING OPERATOR Anesthesia Post Evaluation Procedure(s):CYSTOSCOPY, LEFT RETROGRADE PYELOGRAM, LEFT URETEROSCOPY, LASER LIT HOTRIPSY, LEFT URETERAL STENT PLACEMENT Surgeon: Janet Aragon MD Patient Evaluated in: PACU Patient Participation: complete - patient participated Level of Consciousness: awake and alert , with adequate pain management. Airway Patency: patent Respiratory Status: spontaneous ventilation Cardiovascular Status: hemodynamically stable Postoperative Hydration: euvolemic Postop Nausea/Vomiting: controlled Anesthetic Complications: No Appropriate for discharge from anesthesia care, no apparent anesthesia related c omplication ANE Post Eval Vitals Most Recent Value BP 120/75 filed at 09/21/2019 1530 Pulse 74 filed at 09/21/2019 1530 Temp 36.1 C (97 F) filed at 09/21/2019 1445 Resp 12 filed at 09/21/2019 1530 SpO2 94 % filed at 09/21/2019 1530 RIDGE LOADING OPERATOR * Anesthesia Preprocedure Evaluation - Jermaine Hines MD - 09/21/2019 1:50 PM CARTRIDGE LOADING OPERATOR Anesthesia Evaluation Patient summary reviewed No history of anesthetic complications History of tobacco use. Quit smoking. Airway Mallampati: III TM distance: >3 FB Neck ROM: full Adequate mouth opening Dental - normal exam Pulmonary Lung sounds: diminished, (+) COPD home O2, sleep apnea CPAP, Cardiovascular Heart sounds: normal (+) hypertension, hyperlipidemia, , Neuro/Psych - negative ROS GI/Hepatic/Renal (+) chronic renal disease renal calculi Endo/Other (+) diabetes mellitus Abdominal (+) morbid obesity Obstetrics HEENT - negative ROS Musculoskeletal (+) chronic pain, Hematology/Oncology - negative ROS Anesthesia Plan ASA 3 Type: general () Plan to include: supraglottic airway device Plan discussed with HOUSEKEEPING COORDINATOR. Anesthetic plan and risks discussed with patient. Recovery plan: PACU PONV Risk: low RIDGE LOADING OPERATOR documented in this encounter Plan of Treatment Care Team Description Date [place] [address] [place] [id number] [phone] 02/29/2020 Office Visit Urology documented as of this encounter Visit Diagnoses Not on filedocumented in this encounter Administered Medications Action Date Dose Rate Site Medication Order MAR Action 09/21/2019 2:11 PM CARTRIDGE LOADING OPERATOR 50 mg lidocaine (pf) (XYLOCAINE-MPF) 10 mg/mL Given (1 %) injection Intravenous, As needed, Starting Ju 09/21/19 at 1411, Anesthesia Intra-op 50 mg Given 09/21/2019 2:06 PM CARTRIDGE LOADING OPERATOR 09/21/2019 2:28 PM CARTRIDGE LOADING OPERATOR 4 mg ondansetron (ZOFRAN) injection Given Intravenous, As needed, Starting Ju 09/21/19 at 1428, Anesthesia Intra-op 09/21/2019 2:06 PM CARTRIDGE LOADING OPERATOR 150 mg propofol (DIPRIVAN) injection Given Intravenous, As needed, Starting Ju 09/21/19 at 1406, Anesthesia Intra-op documented in this encounter
--- OUTSIDE RECORDS SUMMARY | 2019-11-28 22:15 | XMS REPORT | Encounter Summary ---
Author Author [facility] Organization [facility] Address Unknown Phone Unavailable Care Team Providers Care Medical Referral Coordinator Name Role Phone Ebony Sharp MD PCP Reason for Referral * Home Health Care (Routine) Referred By Contact Referred To Contact Status Reason Specialty Diagnoses / Procedures Art Watts II, DO [address] [place] [address] [facility] [address] [place] [address] Authorization Specialty Services Home Health Diagnoses Not Need Required Services Pyelonephritis Reason for Visit * Reason Comments Chest [...] Details Care Team Description Date Type Department Luciano Funes MD [address] Dept of Emergency Services [place], [place] [id number] Jackson Gonzalez MD [address] [place], [place] [id number] Hospitalist, Physician Art Watts II, [address] [place] [address] [phone] Pyelonephritis (Primary Dx); Sepsis, due to unspecified organism, unspecified whether acute organ dysfunction present (HCC); Ureteral calculus, left; Chronic respiratory failure, unspecified whether with hypoxia or hypercapnia (HCC); Chronic obstructive pulmonary disease, unspecified COPD type (HCC); Essential hypertension; Generalized abdominal pain; Morbid obesity due to excess calories ([facility]); SASHA on CPAP; Suspected UTI; Type 2 diabetes mellitus with hyperglycemia, with long-term current use of insulin ([facility]); Confusion; Elevated LFTs 09/17/2019 [facility] 09/23/[address] [place] [address] Social History Date Tobacco Use Types Packs/Day [...] Comments Vital Sign 115/76 09/23/2019 12:09 PM STRAIGHTENER Blood Pressure 63 09/23/2019 12:09 PM STRAIGHTENER Pulse 36.7 C (98.1 F) 09/23/2019 12:09 PM STRAIGHTENER Temperature 17 09/23/2019 12:09 PM STRAIGHTENER Respiratory Rate 98% 09/23/2019 12:09 PM STRAIGHTENER Oxygen Saturation - - Inhaled Oxygen Concentration 102 kg (224 lb 13.9 oz) 09/23/2019 4:34 AM STRAIGHTENER Weight 157.5 cm (5' 2") 09/17/2019 2:17 PM STRAIGHTENER Height 41.13 09/17/2019 2:17 PM STRAIGHTENER Body Mass Index documented in this encounter Discharge Summaries * Art Watts II, - 09/23/2019 1:06 PM STRAIGHTENER [facility] Hospitalist - Discharge Summary Patient Name: Isiah Do Board Account No: [id number] Date of : 1950 Date of Admission: [...] on antibiotics and consultation was placed to urodaniel maciel. Patient continued to have pain throughout her hospital course and on she was taken for cystoscopy with stent [...] to excess calories (HCC) Chronic respiratory failure (HCC) Resolved Problems: Confusion Elevated LFTs Code Status: Full Code Recommended Diet: Diet-Consistent Carbohydrate (75 gm) Diet - Low Fat/Chol, 2gm Na (Simply Healthy) Activity/Restrictions: activity as tolerated Scheduled Follow Up Appointments/Studies ([facility] Providers): Future Appointments Date Time Provider Department Center 09/28/2019 3:35 PM INDEP AUA XR 1 INDEP AUA XR 09/28/2019 4:00 PM Darin Huber MD INDEP AUA CL [facility] 10/04/2019 1:45 PM SL US 2 [facility] US [facility] [place] 10/11/2019 1:30 PM Darin Huber MD INDEP AUA CL Additional Discharge Follow Up: Dr. Ebony Sharp [...] 2 CAPSULES BY MOUTH THREE TIMES DAILY [id number](VIT A,C-BIOTIN) ORAL Oral, Daily hydroCHLOROthiazide 25 MG [...] biliary obstruction, if clinically warranted. READING SITE: [facility] ATTESTATION STATEMENT: The staff radiologist has personally reviewed the images and dictated, reviewed, or edited the final report. Ct Head Wo Contrast Result Date: 09/20/2019 Impression: No acute intracranial process. Mild cerebral volume loss. Mild chronic small vessel ischemic disease. The above findings are in general agreement with those in the preliminary report provided by [facility]. READING SITE: [facility]. ATTESTATION STATEMENT: The Staff Radiologist has personally reviewed the images and dictated, reviewed, or edited the final report. Fl Retrograde Urography In Or Result Date: 09/21/2019 Fluoroscopic support for the Urology services. Please see operative report for details. READING SITE: [facility] Us Abdomen Limited Result Date: 09/20/2019 Impression: 1. Diffuse hepatic steatosis without focal hepatic lesion. 2. Cholecystectomy. ATTESTATION STATEMENT: The Staff Radiologist has personally reviewed this study and agrees with the findings in this report. READING SITE: [facility] Xr Chest 2 Views (pa And Lateral) Result Date: 09/19/2019 1. Bibasilar subsegmental atelectasis. READING SITE: [facility] [place] Xr Chest Single View Frontal Result Date: 09/17/2019 1. No acute cardiopulmonary abnormality. 2. Low lung volumes. Mild atelectasis. READING SITE: [facility] Cardiac Studies during this encounter: [...] this summary note. Art Watts II, DO [facility] Medicine Division . IGHTENER documented in this encounter Medications at Time [...] A/vit Take by mouth 0 C/biotin/zinc/copper daily. ([id number],VIT A,C-BIOTIN, ORAL) 08/25/2019 10/13/2019 BREO ELLIPTA 200-25 INHALE 1 PUFF 60 each 0 mcg/dose BY MOUTH INHALERIndications: DAILY Chronic obstructive pulmonary disease, unspecified COPD type ([facility]) 06/17/2019 10/27/2019 cyclobenzaprine Take 1 tablet [...] Abdirizak Garcia NP - 09/22/2019 9:47 AM STRAIGHTENER [facility] Hospitalist - Progress Note Patient Name: Isiah Do Board Account No: [id number] Date of : 1950 Date of Admission: 09/17/2019 7:42 AM Subjective Follow up regarding ureterolithiasis, diabetes The patient's first comments are "I do not have transportation until later [facility], I do not want to be leaving [...] long-term current use of insul in (HCC) Uncontrolled, A1c 12.7% Only on Lantus 20 Units 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 No s/s of acute exacerbation On O2 as needed PHOTOENGRAVING PROOFER Reports that she was on a Prednisone taper PHOTOENGRAVING PROOFER which she completed 09/22 Continue Breo and [...] up Morbid obesity due to excess calories (HCC) Body mass index is 40.65 kg/m. Complicates all aspects of care Counseled on lifestyle modifications and risk reduction strategies See my orders for additional details regarding this patients treatment plan. Room: [address] [place] [address] Diet: Diet-Consistent Carbohydrate (75 gm) Code Status: [...] prochlorperazine OR prochlor perazine Abdirizak Garcia NP [facility] Medicine Division . IGHTENER * Arabella Irwin RN ANP - 09/22/2019 8:[address] [facility] Urology Progress Note Subjective: Interval History: [...] Active Problems: COPD (chronic obstructive pulmonary disease) ([facility]) Type 2 diabetes mellitus with hyperglycemia, with long-term current use of ins ulin ([facility]) Essential hypertension SASHA on CPAP Morbid obesity due to excess calories ([facility]) Generalized abdominal pain Suspected UTI Chronic respiratory failure ([facility]) Confusion Elevated LFTs LOS: 5 days [...] tomorrow due to transportation. Will defer to [facility]. Appreciate their assistance. We will sign off on care. Electronically signed by Arabella Irwin 09/22/2019 8:34 AM IGHTENER Associated attestation - Omar Kidd MD - 09/22/2019 9:57 AM STRAIGHTENER I personally saw and examined the patient. I agree with Arabella Irwin NP's f indings, assessment and plan as documented in the note below. Feeling well today. Worried about going home tonight, due to lack of ride. Ok to discharge from standpoint. Script for norco sent to pharmacy. Omar Kidd * Abdirizak Garcia NP - 09/21/2019 10:38 AM STRAIGHTENER [facility] Hospitalist - Progress Note Patient Name: Isiah Do Board Account No: [id number] Date of : 1950 Date of Admission: [...] with long-term current use of insul in ([facility]) Last A1c 11.0 in May 2019 Only on Lantus 20 Units PHOTOENGRAVING PROOFER BG trends 200-300s Continue Lantus to 25 [...] Monitor trends COPD (chronic obstructive pulmonary disease) ([facility]) Stable. No s/s of acute exacerbation On O2 as needed PHOTOENGRAVING PROOFER Reports that she was on a Prednisone taper PHOTOENGRAVING PROOFER and had 4 more days of 20mg [...] [place] Morbid obesity due to excess calories ([facility]) Body mass index is 40.65 kg/m. Complicates all aspects of care Counseled on lifestyle modifications and risk reduction strategies See my orders for additional details regarding this patients treatment plan. Room: [facility]OMS/N* Diet: Diet NPO Code Status: Full Code VTE Prevention: Appropriate VTE orders and/or documentation has been completed for this patient. [place] Catheter: N/A Scheduled Meds: [Oct] amitriptyline 25 mg Oral Nightly [Oct] atorvastatin 40 mg Oral Nightly [Oct] cefTRIAXone 2 g Intravenous Daily [Oct] citalopram 20 mg Oral Daily [Oct] fluticasone furoate-vilanterol 1 puff Inhalation Daily [Oct] gabapentin 600 mg Oral TID [OCT Hold] hydroCHLOROthiazide 25 mg Oral Daily [Oct] insulin glargine 25 Units Subcutaneous Nightly [Oct] insulin lispro 3-18 Units Subcutaneous 4 times daily before meal s and nightly [MAR Hold] metoprolol tartrate 100 mg Oral BID [OCT Hold] predniSONE 20 mg Oral Daily [OCT Hold] tolterodine 2 mg Oral BID Continuous Infusions: lactated Ringers 50 mL/hr (09/21/19 1352) PRN Meds: [OCT Hold] bisacodyL, [OCT Hold] cyclobenzaprine, [OCT Hold] dextrose 50% OR [OCT Hold] dextrose 10%, [OCT Hold] docusate sodium, [OCT Hold] glucagon OR [OCT Hold] glucagon, [OCT Hold] glucose, [OCT Hold] hyoscyamine, [OCT Hold] ipr atropium-albuterol, [OCT Hold] magnesium sulfate, [OCT Hold] melatonin, [Oct d] morphine, [OCT Hold] oxyCODONE-acetaminophen, [OCT Hold] phenazopyridine, [ Hold] polyethylene glycol, [OCT Hold] potassium chloride OR [OCT Hold] pot assium bicarb-citric acid OR [OCT Hold] potassium chloride in water, [Oct ld] prochlorperazine OR [OCT Hold] prochlorperazine OR [OCT Hold] prochl orperazine Abdirizak Garcia NP [facility] Medicine Division . IGHTENER * Arabella Irwin RN ANP - 09/21/2019 9:[address] [facility] Urology Progress Note Subjective: Interval History: [...] Lab Units 09/21/19 0343 09/20/19 02109/19/19 1653 WBC TH/uL 10.19 9.32 10.54 HEMOGLOBIN [...] Active Problems: COPD (chronic obstructive pulmonary disease) ([facility]) Type 2 diabetes mellitus with hyperglycemia, with long-term current use of ins ulin ([facility]) Essential hypertension SASHA on CPAP Morbid obesity due to excess calories ([facility]) Generalized abdominal pain Suspected UTI Chronic respiratory failure ([facility]) Confusion Elevated LFTs LOS: 4 days [...] she remains medically stable. Electronically signed by Arabella Irwin 09/21/2019 9:02 AM IGHTENER Associated attestation - Janet Aragon MD - 09/21/2019 2:40 PM STRAIGHTENER Pt seen, discussed procedure with her, she v/u and wishes to proceed. * Arabella Irwin RN ANP - 09/20/2019 9:[address] [facility] Urology Progress Note Subjective: Interval History: [...] the last 7 days Lab Units 09/20/19 0219 09/19/19 1653 09/18/19 0949 WBC TH/uL 9.32 10.54 [...] Active Problems: COPD (chronic obstructive pulmonary disease) ([facility]) Type 2 diabetes mellitus with hyperglycemia, with long-term current use of ins ulin ([facility]) Essential hypertension SASHA on CPAP Morbid obesity due to excess calories ([facility]) Generalized abdominal pain Suspected UTI Chronic respiratory failure ([facility]) LOS: 3 days 1. Left mid ureteral [...] signed by Arabella Irwin 09/20/2019 9:01 AM IGHTENER * Hope Cox, NATURAL RESOURCES INSTRUCTOR - 09/20/2019 8:55 AM STRAIGHTENER [facility] Hospitalist - Progress Note Patient Name: Isiah Do Board Account No: [id number] Date of : 1950 Date of Admission: [...] performing provider), ECG, telemetry, current inpatient medications, client relationship consultant notes and physician support coordinator notes with pertainent findings noted within the [...] with long-term current use of insul in ([facility]) Last A1c 11.0 in May 2019 Only on Lantus 20 Units PHOTOENGRAVING PROOFER BG trends 200-300s Continue Lantus to 25 units nightly Monitor BG ac&hs SSI to level 5 Hypoglycemia protocol, CC diet COPD (chronic obstructive pulmonary disease) (HCC) Stable. No s/s of acute exacerbation On O2 as needed PHOTOENGRAVING PROOFER Reports that she was on a Prednisone taper PHOTOENGRAVING PROOFER and had 4 more days of 20mg Continue Ulisses and Priscilla per home regimen Titrate O2 to maintain [...] details regarding this patients treatment plan. Room: [address] [place] [address] Diet: Diet-Consistent Carbohydrate (75 gm) Code Status: [...] prochlorperazine OR prochlor perazine Hope Cox APRN [facility] Medicine Division . IGHTENER * Hope Cox APRN - 09/19/2019 12:08 PM STRAIGHTENER [facility] Hospitalist - Progress Note Patient Name: Isiah Do Board Account No: [id number] Date of : 1950 Date of Admission: [...] re results (as indicated), current inpatient medications, client relationship consultant notes and s upport staff notes with pertainent findings noted within the assessment/plan. I have personally spoken with the patient and nursing staff regarding this patient 's case. Assessment/Plan Ms. Iisah Benítez is a 69 y.o. female who [...] with long-term current use of insul in ([facility]) Last A1c 11.0 in May 2019 BG trends 200-300s Increase Lantus to 25 units nightly Monitor BG ac&hs Increase SSI to level 4 Hypoglycemia protocol, CC diet COPD (chronic obstructive pulmonary disease) ([facility]) Stable. No s/s of acute exacerbation On O2 as needed PHOTOENGRAVING PROOFER Reports that she was on a Prednisone taper PHOTOENGRAVING PROOFER and had 4 more days of 20mg [...] details regarding this patients treatment plan. Room: [address] [place] [address] Diet: Diet-Consistent Carbohydrate (75 gm) Code Status: [...] prochlorperazine OR prochlor perazine Hope Cox APRN [facility] Medicine Division . IGHTENER * Arabella Irwin RN ANP - 09/19/2019 9:[address] [facility] Urology Progress Note Subjective: Interval History: [...] Suspected UTI Chronic respiratory failure (HCC) LOS: 2 days 1. Left mid ureteral [...] signed by Arabella Irwin 09/19/2019 9:41 AM IGHTENER * Hope Cox, NATURAL RESOURCES INSTRUCTOR - 09/18/2019 11:24 AM STRA[facility]ENER [facility] Hospitalist - Progress Note Patient Name: Isiah Do Board Account No: [id number] Date of : 1950 Date of Admission: [...] the performing provider), ECG, current inpatient medications, client relationship consultant notes, supp ort staff notes, prior [...] of acute exacerbation On O2 as needed PHOTOENGRAVING PROOFER Continue Breo and Duonebs per home regimen [...] details regarding this patients treatment plan. Room: [address] [place] [address] Diet: Diet-Consistent Carbohydrate (75 gm) Code Status: [...] prochlorperazine OR prochlor perazine Hope Cox APRN [facility] Medicine Division . IGHTENER documented in this encounter H&P Notes * Lashae Crenshaw MD - 09/17/2019 12:49 PM STRAIGHTENER [facility] Hospitalist - History & Physical Patient Name: Isiah Benítez Account No: [id number] Date of : 1950 Date of Admission: [...] bleeding 08/08/2016 Allergic rhinitis Anxiety Bronchitis, chronic ([facility]) Cataract 2011, 2013 bilat cateract surgery Chronic pain disorder back, ribs, and ankle. COPD (chronic obstructive pulmonary disease) ([facility]) Depression Draining postoperative wound 08/08/2016 Endometriosis Essential hypertension Fractures [address] in Left ankle MATA (generalized anxiety disorder) 09/24/2015 Hernia of abdominal cavity Kidney stone Mixed hyperlipidemia 09/24/2015 Morbid obesity due to excess calories ([facility]) 07/10/2016 On home oxygen therapy 2L - usually needs if has an exerbation of COPD, or resp illness SASHA on CPAP Osteoarthritis Refusal of blood transfusions as patient is Yarsani Sleep apnea CPAP use Type 2 diabetes mellitus with hyperglycemia, with long-term current use of i nsulin ([facility]) 06/29/2016 Urinary calculi Urinary incontinence Urinary [...] STENT PLACEMENT; Surgeon: Darin Huber MD; Location[facility]; Service: Urology; Laterality: Left; CYSTOSCOPY, RETROGRADE PYELOGRAM, URETEROSCOPY, LASERLITHOTRIPSY, WITH URETE RAL STENT PLACEMENT Left 08/02/2019 Procedure: CYSTOSCOPY, LEFT RETROGRADE PYELOGRAM, LEFT URETEROSCOPY, LASER LITH OTRIPSY, LEFT URETERAL STENT EXCHANGE; Surgeon: Darin Huber MD; Location: [facility]; Service: Urology; Laterality: Left; CYSTOSCOPY, RETROGRADE PYELOGRAM, W/URETERAL STENT PLACEMENT Left 08/30/2019 Procedure: CYSTOSCOPY, LEFT RETROGRADE PYELOGRAM, AND LEFT URETERAL STENT INSER TION; Surgeon: Janet Aragon MD; Location: [facility]; Service: Urolo gy; Laterality: Left; HAND SURGERY Left 03/09/2019 CTR HERNIA REPAIR HYSTERECTOMY OOPHORECTOMY REMOVAL, HARDWARE, FOOT OR ANKLE Left 04/09/2017 Procedure: LEFT ANKLE REMOVAL OF HARDWARE WITH REVISION LEFT ANKLE ARTHRODESIS; Surgeon: Adelaida Olivas MD; Location: [facility]; Service: Orthopedics; Later ality: Left; REPAIR, INCISIONAL HERNIA, LAPAROSCOPIC, USING MESH N/A 05/25/2018 Procedure: LAPAROSCOPIC INCISIONAL HERNIA REPAIR WITH MESH; Surgeon: Medardo Tate MD; Location: [facility]; Service: General; Laterality: N/A; TONSILLECTOMY [...] 1 tablet (25 mg total) by mo uth daily. insulin glargine (LANTUS U-100 INSULIN) 100 unit/mL injection ADMINISTER 20 UNIT S UNDER THE SKIN EVERY NIGHT. E11.9 insulin syringe (maufait ULTRA-FINE) 0.3 mL 31 gauge x 5/16 [...] capsule Take 2 capsules by mouth eve y. metoprolol tartrate (LOPRESSOR) 100 MG tablet TAKE [...] joann es a day. vit A/vit C/biotin/zinc/copper ([id number],VIT A,C-BIOTIN, ORAL) Take by tanna th daily. [...] the performing provider), ECG, current inpatient medications, physician support coordinator notes, p rior admission/outpatient notes and prior to admission medications with pertaine nt findings noted within the assessment/plan. I have personally reviewed the pat ient's past medical, surgical, family, or social history [...] with long-term current use of insul in ([facility]) Continued home Lantus 20. Ordered SSI #2 with ACHS Accu-Cheks. COPD (chronic obstructive pulmonary disease) ([facility]) Not in acute exacerbation. Continued home inhalers. Continuous pulse ox Oxygen supplementation as needed. Morbid obesity due to excess calories ([facility]) Complicates all aspects of care. In addition, see my orders for additional details regarding this patients treatm ent plan. Diet: Diet-Consistent Carbohydrate (75 gm) VTE Prevention: Appropriate VTE orders and/or documentation has been completed for this patient. The patient does have an advanced directive. Code Status: Full Code Disp: Admit the patient as Inpatient to [facility] with telemetry for treatmen t as noted above. Lashae Crenshaw MD [facility] Medicine Division . IGHTENER documented in this encounter Consult Notes * Hilario Diego MD - 09/21/2019 5:28 PM STRAIGHTENER Associated Order(s): IP CONSULT TO ENDOCRINOLOGY Endocrinology Consult Note NAME: Isiah Do Earline AGE: 69 y.o. : 1950 DATE OF [...] found to have acute recurrent ureteral stone. e just came back from surgery for this. She has been n.p.o. all day and blood s ugars were 90-180. She also has history of COPD and prednisone was started 2 da ys ago for 4 days. Blood sugars were running 200-300 since admission until toda y. Past Medical History: Diagnosis Date Acute bleeding 08/08/2016 Allergic rhinitis Anxiety Bronchitis, chronic ([facility]) Cataract 2011, 2012 bilat cateract surgery Chronic pain disorder back, ribs, and ankle. COPD (chronic obstructive pulmonary disease) ([facility]) Depression Draining postoperative wound 08/08/2016 Endometriosis Essential hypertension Fractures [address] in Left ankle MATA (generalized anxiety disorder) 09/24/2015 Hernia of abdominal cavity Kidney stone Mixed hyperlipidemia 09/24/2015 Morbid obesity due to excess calories ([facility]) 07/10/2016 On home oxygen therapy 2L - usually needs if has an exerbation of COPD, or resp illness SASHA on CPAP Osteoarthritis Refusal of blood transfusions as patient is Yarsani Sleep apnea CPAP use Type 2 diabetes mellitus with hyperglycemia, with long-term current use of i nsulin ([facility]) 06/29/2016 Urinary calculi Urinary incontinence Urinary [...] STENT PLACEMENT; Surgeon: Darin Huber MD; Location: [facility]; Service: Urology; Laterality: Left; CYSTOSCOPY, RETROGRADE PYELOGRAM, URETEROSCOPY, LASERLITHOTRIPSY, WITH URETE RAL STENT PLACEMENT Left 08/02/2019 Procedure: CYSTOSCOPY, LEFT RETROGRADE PYELOGRAM, LEFT URETEROSCOPY, LASER LITH OTRIPSY, LEFT URETERAL STENT EXCHANGE; Surgeon: Darin Huber MD; Location: [facility]; Service: Urology; Laterality: Left; CYSTOSCOPY, [...] (BD ULTRA-FINE) 0.3 mL 31 gauge x 516 Inject under the skin daily. use as [...] Take 1 tablet (200 mg total) by atnna th 3 (three) times a day as [...] Unknown at Unknown time vit A/vit C/biotin/zinc/copper ([id number]-QHZB-AHLM,VIT A,C-BIOTIN, ORAL) Take by mouth daily. 09/16/2019 [...] on phone: None Gets together: None Attends muslim service: None Active member of club or [...] is here. Hilario Diego 09/21/2019 5:28 PM IGHTENER * Theresa Mata RN - 09/20/2019 3:22 PM STRAIGHTENER Inpatient Diabetes Education Note Diabetes Education provided [...] high?: Diet Education provided: Diabetes Education Materials: [facility] "Diabetes Survival Skills" Guide(Insulin info rmation sheet, Hypo and Hyperglycemia sheets, [facility] Diabetes Managament and Educa tion brochure, and [...] rotation, Lantus and Humalog. 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 Unable to work due to COPD. Demonstrated use of One Touch Verio meter and will need RX for strips and Lancets. Level of service: 30 minutes Recommendations: Recommend OP DM Education or may need Home Health Education for Diabetes Please refer to [employer] directory for Tape Recorder Repairer's phone number. Lewis Mata RN, CDE IGHTENER * Fiorella Boyd RN - 09/19/2019 12:31 PM STRAIGHTENER Associated Order(s): CONSULT TO CARE PROGRESSION Advance [...] s or concerns. Isabel Boyd RN, BSN Carpentry Teacher [phone] IGHTENER * Arabella Irwin RN ANP - 09/18/2019 8:26 AM STRAIGHTENER Associated Order(s): IP CONSULT TO UROLOGY [facility] UROLOGY CONSULT NOTE Patient: Isiah Benítez [...] end of urination. Labs reviewed. WBC 12.83K. Experimental [employer] 1.0. UA (+) for trace protein, >40 [...] bleeding 08/08/2016 Allergic rhinitis Anxiety Bronchitis, chronic ([facility]) Cataract 2011, 2012 bilat cateract surgery Chronic pain disorder back, ribs, and ankle. COPD (chronic obstructive pulmonary disease) ([facility]) Depression Draining postoperative wound 08/08/2016 Endometriosis Essential hypertension Fractures [address] in Left ankle MATA (generalized anxiety disorder) 09/24/2015 Hernia of abdominal cavity Kidney stone Mixed hyperlipidemia 09/24/2015 Morbid obesity due to excess calories ([facility]) 07/10/2016 On home oxygen therapy 2L - usually needs if has an exerbation of COPD, or resp illness SASHA on CPAP Osteoarthritis Refusal of blood transfusions as patient is Yarsani Sleep apnea CPAP use Type 2 diabetes mellitus with hyperglycemia, with long-term current use of i nsulin ([facility]) 06/29/2016 Urinary calculi Urinary incontinence Urinary [...] STENT PLACEMENT; Surgeon: Darin Huber MD; [place] [facility] [place]; Service: Urology; Laterality: Left; CYSTOSCOPY, [...] INSER TION; Surgeon: Janet Aragon MD; [place] [facility] [place]; Service: Urolo gy; Laterality: Left; HAND SURGERY Left 03/09/2019 CTR HERNIA REPAIR HYSTERECTOMY OOPHORECTOMY REMOVAL, HARDWARE, FOOT OR ANKLE Left 04/09/2017 Procedure: LEFT ANKLE REMOVAL OF HARDWARE WITH REVISION LEFT ANKLE ARTHRODESIS; Surgeon: Adelaida Olivas MD; [place] [facility] [place]; Service: Orthopedics; Later ality: Left; REPAIR, INCISIONAL HERNIA, LAPAROSCOPIC, USING MESH N/A 05/25/2018 Procedure: LAPAROSCOPIC INCISIONAL HERNIA REPAIR WITH MESH; Surgeon: Medardo Tate MD; [place]: [facility] [place]; Service: General; Laterality: N/A; TONSILLECTOMY [...] Take 1 tablet (200 mg total) by [facility] 3 (three) times a day as needed [...] Unknown at Unknown time vit A/vit C/biotin/zinc/copper ([id number],VIT A,C-BIOTIN, ORAL) Take by mouth daily. 09/16/2019 [...] Lashae arroyo MD 100 mg at 09/17/19 174 fentaNYL (SUBLIMAZE) injection 25 mcg 25 mcg [...] injection 2.5-5 mg 2.5-5 mg Intravenous Q4H W[place] N Lashae Crenshaw MD 5 mg at [...] file Gets together: Not on file Attends muslim service: Not on file Active member of [...] 10:05 AM Positive (A) Negative Final Specific Dyer, UA Date/Time Value Ref Range Status 09/17/2019 [...] biliary obstruction, if clinically warranted. READING SITE: [facility] ATTESTATION STATEMENT: The staff radiologist has personally reviewed the images and dictated, reviewed, or edited the final report. Xr Chest Single View Frontal Result Date: 09/17/2019 1. No acute cardiopulmonary abnormality. 2. Low lung volumes. Mild atelectasis. READING SITE: [facility] ASSESSMENT/PLAN: 1. Left mid ureteral [...] Erika morales. We will continue to follow. IGHTENER Associated attestation - Antonio Duque MD - 09/19/2019 10:59 AM STRAIGHTENER I personally saw and examined the patient. I agree with Arabella Irwin NP's f indings, assessment and plan as documented in the note below. Patient is feeling much better. She does report subjective low-grade fever. De nies any nausea or vomiting. She is tolerating regular diet and is ambulatory w ithout assistance. She is quite eager and determined to have treatment of her stone while in-house. We will need to obtain a final urine culture to ensure she is on appropriate a ntibiotics. She may be a candidate for ureteroscopy with laser lithotripsy and stent exchange later this week. Antonio Duque * Jaylyn Batres RN - 09/17/2019 1:00 PM STRAIGHTENER Associated Order(s): CONSULT - VASCULAR ACCESS TEAM Consulted for IV access. Patient had 2 previous IV's infiltrate. This RN placed a 20g 2.25" Accucath to the right AC, brisk blood aspirate, flushed. Rae MEDINA upd ated. IGHTENER documented in this encounter Nursing Notes * Sunny Boyer, RN - 09/19/2019 11:27 PM STRAIGHTENER 09/19/19 7789 Goals for Shift Pt/Family Goal for Shift pain control Nursing Goals for the Shift pain control Plan/Interventions to meet Goal PRN pain meds, repositioning IGHTENER documented in this encounter ED Notes * Rae Reyes RN - 09/17/2019 1:04 PM STRAIGHTENER 800ml NS left to go and restarted second bag of NS since Vascular Access establi shed right ac IV. Lab completed second set of cultures. Ordered diabetic tray fo r patient. C/o 04/01 upper abdominal pain. IGHTENER * Barby Olivo RN - 09/17/2019 12:40 PM STRAIGHTENER PICC team at bedside IGHTENER * Rae Reyes RN - 09/17/2019 11:[address] Funes states patient will likely need to be admitted. Notified Rachel of n eed for additional ultrasound guided IV placement. IGHTENER * Rae Reyes RN - 09/17/2019 10:[address] Funes of right arm ultrasound IV infiltrating after 200ml infused o f second bag of fluids. IGHTENER * Rae Reyes RN - 09/17/2019 10:54 AM STRAIGHTENER Daughter called to obtain update. Update provided within HIPPA limits. Notified daughter that I will instruct patient to call her with any updates. IGHTENER * Rae Reyes RN - 09/17/2019 10:06 AM STRAIGHTENER Up to brp with standby assist. Patient using hat to attempt to obtain UA. IGHTENER * Rae Reyes RN - 09/17/2019 8:29 AM STRAIGHTENER adelfo Prabhakar did not see any viable options for placing IV. Rachel ultrasound guided trained IV, assessing at bedside for IV access. IGHTENER * Rae Reyes RN - 09/17/2019 8:20 AM STRAIGHTENER Discussed with Vanna Fair if can assess for IV placement since unsuccessful x2 . Vanna assessing for IV access site now. IGHTENER * Luciano Funes MD - 09/17/2019 7:57 AM STRAIGHTENER 09/17/2019 [facility] History Chief Complaint Patient presents with Chest [...] bleeding 08/08/2016 Allergic rhinitis Anxiety Bronchitis, chronic ([facility]) Cataract 2011, 2013 bilat cateract surgery Chronic pain disorder back, ribs, and ankle. COPD (chronic obstructive pulmonary disease) ([facility]) Depression Draining postoperative wound 08/08/2016 Endometriosis Essential hypertension Fractures [address] in Left ankle MATA (generalized anxiety disorder) 09/24/2015 Hernia of abdominal cavity Kidney stone Mixed hyperlipidemia 09/24/2015 Morbid obesity due to excess calories ([facility]) 07/10/2016 On home oxygen therapy 2L - usually needs if has an exerbation of COPD, or resp illness SASHA on CPAP Osteoarthritis Refusal of blood transfusions as patient is Yarsani Sleep apnea CPAP use Type 2 diabetes mellitus with hyperglycemia, with long-term current use of i nsulin ([facility]) 06/29/2016 Urinary calculi Urinary incontinence Urinary [...] WITH MESH; Surgeon: Medardo Tate MD; [place] [facility] [place]; Service: General; Laterality: N/A; TONSILLECTOMY [...] ISIAH BENÍTEZ Sex#: Paulina #: 1950 Jose#: [id number] [place] [facility] [place] SED-11 Rashaad harris Requested: [id number] CT ABDOMEN PELVIS W CONTRAST Reason for [...] obs truction, if clinically warranted. READING SITE: [facility] NICHOLAS Bello TATEMENT: The staff radiologist has personally reviewed the images and dictated, reviewed, or edited the final report. Xr Chest Single View Frontal Result Date: 09/17/2019 Patient: ISIAH BENÍTEZ Sex#: F #: [id number] Jose#: [id number] [place]: [facility] SED-11 Rashaad harris Requested: [id number] XR CHEST SINGLE VIEW FRONTAL Reason for [...] lung volumes. Mild atelectasis . READING SITE: [facility] Results for orders placed or [...] Negative Ketones Urine Negative Negative mg/dL Specific Dyer, UA >=1.030 1.001 - 1.030 Hemoglobin Urine [...] and will complete a slow taper at [facility]. Her blood pressure was elevated and she [...] Disposition Admit Luciano Funes MD 09/17/19 1217 IGHTENER * Barby Olivo RN - 09/17/2019 7:42 AM STRAIGHTENER Bed: SED-11 Expected date: Expected time: Means of arrival: Comments: so[facility] IGHTENER documented in this encounter Miscellaneous Notes * Care Progression Final DC Note - Tiny Reyna RN - 09/23/2019 3:23 PM STRAIGHTENER Final Discharge Note Final Discharge Disposition: 06-Home Under Care of Organized Home Health Service Organization Discharge goal and plan is mutually agreed upon by patient. Patient will discharge to: Home with home health resumption Transportation: Family Discharge Time: Unknown Special Instructions: Noticed that patient has discharge orders and a plan to re sume home health. Spoke with Floresita Vargas with [facility] who can resume home health, but will need resumption orders. Contacted Dr. Watts via [facility] who gave verbal to resume home health. Sent orde rs to [facility]. Patient had already discharged. Was unable to present IMM letter. Tiny Reyna RN, BSN, Carpentry Teacher [phone] s IGHTENER * Nutrition Note - Glenys Carlos RD LD - 09/23/2019 10:13 AM STRAIGHTENER Nutrition Length of Stay [facility] Patient: Isiah Benítez Age: 69 y.o. : [...] wound per RN notes, talked with RN 2/ who reports red but no stage II wound or greater present Possible DC today per RN. No acute nutrition diagnosis determined at this time. Continue with current nutr ition plan. Will continue to evaluate every 5-7 days per policy. Electronically signed by Glenys Carlos 09/23/2019 10:13 AM IGHTENER * End of Shift Note - Susan Brock RN - 09/23/2019 4:59 AM STRAIGHTENER End of Shift Summary and Plan of [...] strain all urine, pain meds as needed IGHTENER * End of Shift Note - Annie Melchor RN - 09/22/2019 5:20 PM STRAIGHTENER End of Shift Summary and Plan of [...] strain all urine, pain meds as needed IGHTENER * Nutrition Note - Letty Andrea RD LD CNSD - 09/22/2019 4:38 PM STRAIGHTENER Nutrition Education [facility] Patient: Isiah Benítez Age: 69 y.o. : 1950 PRIMARY CARE PROVIDER: Ebony Sharp MD ATTENDING PHYSICIAN: Physician Hospitalist RD consulted for carb counting Nutrition Education. Chart [...] signed by Letty Andrea 09/22/2019 4:38 PM IGHTENER * End of Shift Note - Arabella Mccormick RN - 09/21/2019 6:44 PM STRAIGHTENER End of Shift Summary and Plan of [...] strain all urine, pain meds as needed IGHTENER * Operative Note - Janet Aragon MD - 09/21/2019 2:42 PM STRAIGHTENER PREOPERATIVE DIAGNOSES: Left ureteral stone. POSTOPERATIVE DIAGNOSIS: Left ureteral stone. PROCEDURE: Cystourethroscopy, left ureteral stent removal, left retrograde pyel ogram, left ureteroscopy, laser lithotripsy, basket extraction of stone and left ureteral stent placement (6-Italian x 26 cm). SURGEON: Dr. Janet Aragon. [...] and the rigid scope was removed. An 11/13 access sheath was placed over one of [...] was backloaded through the scope and a 6-Italian x 26 cm double-J stent was threaded [...] will remove her stent in 1-2 weeks. IGHTENER * Brief Operative Note - Janet Aragon MD - 09/21/2019 2:42 PM STRAIGHTENER Brief Operative Note Isiah Benítez 09/21/2019 Event Time In Procedure / Incision Start 09/21/2019 1414 Pre-op Diagnosis: Left ureteral stone Post-op Diagnosis: same Procedure: CYSTOSCOPY, LEFT RETROGRADE PYELOGRAM, LEFT URETEROSCOPY, LASER LITHOTRIPSY, LEF T URETERAL STENT PLACEMENT, Left - Ureter Surgeon(s) and Role: * Janet Aragon MD - Primary Anesthesia Type: General Staff: Airframe And Powerplant Technician: Janna Pascal RN; Juventino Patel RN Hat Steamer: Jermaine Alcazar Scrub Person: Alex Arredondo Float: Koko Thomas RN; Koko Rodas RN; Lori aMncia CNA Anesthesiologist: Jermaine Hines MD REGULATOR PIN INSERTER: Bernardino Herrera RN REGULATOR PIN INSERTER; Rae Louie RN REGULATOR PIN INSERTER Findings: See dictation Estimated Blood Loss: 0 mL Specimens: . ID Source Type Tests Collected By Collected At A Left Ureter Stone STONE ANALYSIS Janet Aragon MD 09/21/19 1433 Description: left ureter stone Comment: Pre-op diagnosis: N20.1 Implants: Implant Name Type Inv. Item Serial No. Chief Concierge Lot No. LRB No. Used Action IMPLANT STENT URETERAL CONTOUR 6FR X 26CM W/O GUIDWIRE [id number] - SNA Non-Tissue Implant IMPLANT STENT URETERAL CONTOUR 6FR X 26CM W/O GUIDWIRE 180-2 [id number] NA Xtone [id number] Left 1 Implanted Complications: None Janet Aragon Date: 09/21/2019 Time: 2:42 PM IGHTENER * End of Shift Note - Lauryn Ricardo RN - 09/21/2019 6:07 AM STRAIGHTENER End of Shift Summary and Plan of [...] strain all urine, pain meds as needed IGHTENER * End of Shift Note - Arabella Mccormick RN - 09/20/2019 5:22 PM STRAIGHTENER End of Shift Summary and Plan of [...] strain all urine, pain meds as needed IGHTENER * Assessment & Plan Note - Abdirizak Garcia NP - 09/20/2019 10:08 AM STRAIGHTENER Associated Problem(s): Elevated LFTs (Resolved 09/23/2019) Mild Likely 2/2 fatty liver and acute infection RUQ US without acuity, hepatic steatosis IGHTENER * Assessment & Plan Note - Abdirizak Garcia NP - 09/20/2019 10:05 AM STRAIGHTENER Associated Problem(s): Confusion (Resolved 09/23/2019) Resolved IGHTENER * Assessment & Plan Note - Art Watts II, DO - 09/20/2019 10:03 AM STRAIGHTENER Associated Problem(s): Morbid obesity due to excess calories (HCC) Complicates all aspects of care Counseled on lifestyle modifications and risk reduction strategies IGHTENER * Assessment & Plan Note - Art Watts II, - 09/20/2019 10:03 AM STRAIGHTENER Associated Problem(s): Chronic respiratory failure (HCC) Pulmonary hygiene Continue home COPD regimen IGHTENER * Assessment & Plan Note - Art Watts II, DO - 09/20/2019 10:03 AM STRAIGHTENER Associated Problem(s): Type 2 diabetes mellitus with hyperglycemia, with long-te rm current use of insulin (HCC) Continue Lantus 25 units at bedtime Severe allergy listed to metformin Start Januvia Follow-up endocrinology as an outpatient Likely made worse by recent steroid use IGHTENER * Assessment & Plan Note - Art Watts II, DO - 09/20/2019 10:02 AM STRAIGHTENER Associated Problem(s): SASHA on CPAP CPAP at bedtime IGHTENER * Assessment & Plan Note - Art Watts II, DO - 09/20/2019 10:01 AM STRAIGHTENER Associated Problem(s): Essential hypertension Continue chronic home medications IGHTENER * Assessment & Plan Note - Art Watts II, DO - 09/20/2019 10:00 AM STRAIGHTENER Associated Problem(s): COPD (chronic obstructive pulmonary disease) ([facility]) Breo Duonebs per home regimen IGHTENER * Assessment & Plan Note - Art Watts II, DO - 09/20/2019 9:59 AM STRAIGHTENER Associated Problem(s): Suspected UTI Resolved Completed 5 days Rocephin IGHTENER * Assessment & Plan Note - Art Watts II, DO - 09/20/2019 9:58 AM STRAIGHTENER Associated Problem(s): Generalized abdominal pain Resolved IGHTENER * Assessment & Plan Note - Art Watts II, DO - 09/20/2019 9:57 AM STRAIGHTENER Associated Problem(s): Ureteral calculus, left S/P left ureteral stent placement on 08/30 without improvement, cystoscopy with st ent removal and lithotripsy 09/21 Urology recommends follow-up in 1 to 2 weeks Detrol LA pyridium IGHTENER * End of Shift Note - Sunny Boyer, ADAM - 09/20/2019 5:37 AM STRAIGHTENER End of Shift Summary and Plan of Care No acute events overnight . Pt continue on PRN medication for pain control . Pt vital signs stable . Pt uses call light approprietly . PT NPO for abdominal ultr asound this morning . Will continue to monitor . Fall Prevention Plan Fall prevention interventions and safe environment main tairogelio, see the Daily Cares/Safety flowsheet for documentation. Goals/Plan for Shift Patient/Family stated goal for shift: pain control Nursing goal for shift: pain control Plan: PRN pain meds, repositioning Goals/Plan for Hospital Stay Patient/Family stated goal for hospital stay: to pass kidney stone Nursing goal for hospital stay: patient to pass kidney stone Plan: strain all urine, pain meds as needed IGHTENER * End of Shift Note - Arabella Mccormick, ADAM - 09/19/2019 6:06 PM STRAIGHTENER End of Shift Summary and Plan of Care Around 1530 pt became diaphoretic and states she "feels weird like she isn't her e and she's confused". Pt able to answer orientation questions appropriately. Bl ood sugar 190. KADEN Cox notified and came to bedside. Pt was put in w/c for CT but then pt started feeling worse, unable to get an oral temp, BP 170/90, CT delayed and WATERMELON INSPECTOR aware. CT called at 1800 to send [...] strain all urine, pain meds as needed IGHTENER * Significant Event - Hope Cox, SHILOH - 09/19/2019 3:40 PM STRAIGHTENER [facility] Hospitalist - Significant Event Patient Name: Isiah Benítez Account No: [id number] Date of : 1950 Date of Admission: 09/17/2019 7:42 AM Ms. Isiah Benítez is a 69 y.o. female who was admitted on 09/17/2019 with Chest p ain. Principal Problem: Ureteral calculus, left Active Problems: Generalized abdominal pain Suspected UTI Confusion COPD (chronic obstructive pulmonary disease) ([facility]) Type 2 diabetes mellitus with hyperglycemia, with long-term current use of ins ulin ([facility]) Essential hypertension SASHA on CPAP Morbid obesity due to excess calories ([facility]) Chronic respiratory failure ([facility]) Elevated LFTs Received message from bedside nurseArabella. Patient stating that she feels "we ird [...] results (as indicated), current inpatient medications and physician support coordinator notes with pertainent findings noted within the assessment/plan. I have personally sp stephen with the patient, another physican and nursing staff regarding this patient 's case. Room: [address] [place] [address] Diet: Diet-Consistent Carbohydrate (75 gm) Code Status: Full Code Hope Cox APRN [facility] Medicine Division . IGHTENER * Assessment & Plan Note - Hope Cox APRN - 09/19/2019 12:17 PM STRAIGHTENER Associated Problem(s): Morbid obesity due to excess calories (HCC) Complicates all aspects of care Strongly recommend dietary changes, lifestyle changes and weight loss IGHTENER * Assessment & Plan Note - Hope Cox APRN - 09/19/2019 12:17 PM STRAIGHTENER Associated Problem(s): Chronic respiratory failure (HCC) On chronic O2 prn Monitor Titrate O2 as needed for goal sat >90% IGHTENER * Assessment & Plan Note - Hope Cox APRN - 09/19/2019 12:16 PM STRAIGHTENER Associated Problem(s): Type 2 diabetes mellitus with hyperglycemia, with long-te rm current use of insulin (HCC) Last A1c 11.0 in May 2019 BG trends 200-300s Increase Lantus to 25 units nightly Monitor BG ac&hs Increase SSI to level 4 Hypoglycemia protocol, CC diet IGHTENER * Assessment & Plan Note - Hope Cox APRN - 09/19/2019 12:16 PM STRAIGHTENER Associated Problem(s): SASHA on CPAP Compliant with CPAP at home Continue home CPAP regimen IGHTENER * Assessment & Plan Note - Hope Cox APRN - 09/19/2019 12:15 PM STRAIGHTENER Associated Problem(s): Essential hypertension Systolic (24hrs), Av , Min:129 , Max:145 Continue Metoprolol Resume home dose HCTZ daily Monitor trends IGHTENER * Assessment & Plan Note - Hope Cox APRN - 09/19/2019 12:13 PM STRAIGHTENER Associated Problem(s): COPD (chronic obstructive pulmonary disease) (HCC) Stable. 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 09/17 UA with +LEUs and WBCs >40, no bacteria; UCx with mixed ciera Continue IV Ceftriaxone for now Repeat UA reflex IGHTENER * Assessment & Plan Note - Hope Cox APRN - 09/19/2019 12:11 PM STRAIGHTENER Associated Problem(s): Generalized abdominal pain Patient reports generalized abdominal pain but this is worse in the left lower q uadrant. CT abdomen showed left-sided ureteral calculus. S/p ureteral stent on 08/30 See above plan for ureteral calculus Pain control with PO Percocet and IV Morphine IGHTENER * Assessment & Plan Note - Hope Cox APRN - 09/19/2019 12:11 PM STRAIGHTENER Associated Problem(s): Ureteral calculus, left CT abdomen showed left ureteral stent and calculus. S/p left ureteral stent placement on 08/30 Urology following, appreciate assist Continue tolterodine Continue PRN PO Percocet and IV Morphine PRN Levsin and Pyridium Plans for possible ureteroscopy with laser lithotripsy and stent exchange IGHTENER * End of Shift Note - Lizzie Hickey RN - 09/19/2019 2:24 AM STRAIGHTENER End of Shift Summary and Plan of [...] strain all urine, pain meds as needed IGHTENER * End of Shift Note - Tania Moscoso RN - 09/18/2019 5:14 PM STRAIGHTENER End of Shift Summary and Plan of [...] strain all urine, pain meds as needed IGHTENER * Care Progression Initial Assessment - Fiorella Diana RN - 09/18/2019 5:00 PM STRAIGHTENER Care Progression Initial Assessment Note Additional information: patient readmission from 09/07/2019. Assessment unchanged from last admit. PCP, pharmacy, insurance, demographics verified as unchanged. Patient is current with [facility]. She has the support of her daughter whom she live s with currently. Denies any needs at home. Would like to resume home care [facility] with [facility]. Referral sent. CC will continue to follow for discharge planning. Referral to see patient was placed by Referral Source: Care Progression Referral Name: Fiorella MALIK RN Carpentry Teacher, Referral Reason: Initial As sessment, Discharge planning, [...] Type of Healthcare Directive: Durable power of defense attorney for health care Copy requested from family/patient Healthcare Agent Appointed: Yes Healthcare Agent's Name: orb Howell Healthcare Agent's Patient currently uses at home: Assistive Devices: Cane, Walker, Nebulizer, Oxyg en, Cpap Patient states their Income Source: Not employed. Retired, Government Assistance: Medicare, SS/SSI Income/Expense Information: Income meets expenses Resources Available: Rx benefits Verified that patients primary care physician is Ebony Sharp MD and recei ves their medications from [id number] - [place], [place] - [facility] [place] [id number] [place] [address] IGHTENER * Assessment & Plan Note - Hope Cox APRN - 09/18/2019 1:34 PM STRAIGHTENER Associated Problem(s): Chronic respiratory failure (HCC) On chronic O2 prn Monitor Titrate O2 as needed for goal sat >90% IGHTENER * End of Shift Note - Lizzie Hickey RN - 09/18/2019 5:11 AM STRAIGHTENER End of Shift Summary and Plan of [...] strain all urine, pain meds as needed IGHTENER * End of Shift Note - Jaclyn Boston RN - 09/17/2019 5:58 PM STRAIGHTENER End of Shift Summary and Plan of [...] strain all urine, pain meds as needed IGHTENER * Assessment & Plan Note - Hope Cox APRN - 09/17/2019 12:48 PM STRAIGHTENER Associated Problem(s): Suspected UTI Patient was recently treated for a [place] UTI. UA with +LEUs and WBCs >40, no bacteria Continue IV Ceftriaxone for now Follow blood and urine cultures IGHTENER * Assessment & Plan Note - Hope Cox APRN - 09/17/2019 12:47 PM STRAIGHTENER Associated Problem(s): Ureteral calculus, left CT abdomen showed left ureteral stent and calculus. S/p left ureteral stent placement on 08/30 Urology following, appreciate assist Continue tolterodine DC IV fentanyl Add Percocet 1-2 tabs Q6 PRN IV Morphine Q4 for breakthrough pain PRN Levsin and Pyridium IGHTENER * Assessment & Plan Note - Hope Cox APRN - 09/17/2019 12:46 PM STRAIGHTENER Associated Problem(s): Type 2 diabetes mellitus with hyperglycemia, with long-te rm current use of insulin (HCC) Last A1c 11.0 in May 2019 BG trends 200s Increase Lantus to 22 Units nightly Monitor BG ac&hs SSI level 2 Hypoglycemia protocol, CC diet IGHTENER * Assessment & Plan Note - Hope Cox APRN - 09/17/2019 12:46 PM STRAIGHTENER Associated Problem(s): SASHA on CPAP Compliant with CPAP at home Continue home CPAP regimen IGHTENER * Assessment & Plan Note - Hope Cox APRN - 09/17/2019 12:46 PM STRAIGHTENER Associated Problem(s): Morbid obesity due to excess calories (HCC) Complicates all aspects of care Strongly recommend dietary changes, lifestyle changes and weight loss IGHTENER * Assessment & Plan Note - Hope Cox APRN - 09/17/2019 12:45 PM STRAIGHTENER Associated Problem(s): Generalized abdominal pain Patient reports generalized abdominal pain but this is worse in the left lower q uadrant. CT abdomen showed left-sided ureteral calculus. S/p ureteral stent on 08/30 See above plan for ureteral calculus Pain control with PO Percocet and IV Morphine IGHTENER * Assessment & Plan Note - Hope Cxo APRN - 09/17/2019 12:45 PM STRAIGHTENER Associated Problem(s): Essential hypertension Systolic (24hrs), Av , Min:110 , Max:148 Continue Metoprolol Hold HCTZ for now until taking adequate PO Monitor trends IGHTENER * Assessment & Plan Note - Hope Cox APRN - 09/17/2019 12:44 PM STRAIGHTENER Associated Problem(s): COPD (chronic obstructive pulmonary disease) (HCC) Stable. 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 Isiah Benítez is a 69 y.o. [...] on 09/22, plans to discharge on 09/23 IGHTENER documented in this encounter Plan of Treatment Care Team Description Date [place] [address] [place] [address] 18878 [phone] 02/29/2020 Office Visit Urology Order Schedule Name Type Priority Associated Diag noses 1 Occurrences starting 09/23/2019 until 03/23/2020 Ambulatory referral to Outpatient Routine Pyelone phritis Home Health Referral documented as of this encounter Procedures Comments Procedure Name Priority Date/Time Associated Diag nosis GLUCOSE POC Routine 09/23/2019 12:11 PM STRAIGHTENER GLUCOSE POC Routine 09/23/2019 8:09 AM STRAIGHTENER CBC AND DIFF (MANUAL DIFF Routine 09/23/2019 IF NECESSARY) 3:03 AM STRAIGHTENER BASIC METABOLIC PANEL Routine 09/23/2019 3:03 AM STRAIGHTENER GLUCOSE POC Routine 09/22/2019 11:39 PM STRAIGHTENER GLUCOSE POC Routine 09/22/2019 7:36 PM STRAIGHTENER GLUCOSE POC Routine 09/22/2019 4:31 PM STRAIGHTENER GLUCOSE POC Routine 09/22/2019 12:16 PM STRAIGHTENER GLUCOSE POC Routine 09/22/2019 7:54 AM STRAIGHTENER GLUCOSE POC Routine 09/22/2019 5:03 AM STRAIGHTENER GLUCOSE POC Routine 09/22/2019 12:22 AM STRAIGHTENER GLUCOSE POC Routine 09/21/2019 10:24 PM STRAIGHTENER GLUCOSE POC Routine 09/21/2019 7:16 PM STRAIGHTENER GLUCOSE POC Routine 09/21/2019 4:53 PM STRAIGHTENER PULSE OXIMETRY, Routine 09/21/2019 CONTINUOUS 4:10 PM STRAIGHTENER GLUCOSE POC Routine 09/21/2019 3:05 PM STRAIGHTENER FL RETROGRADE UROGRAPHY Routine 09/21/2019 IN OR 2:52 PM STRAIGHTENER STONE ANALYSIS Timed 09/21/2019 2:33 PM STRAIGHTENER CYSTOSCOPY, RETROGRADE 09/21/2019 N20.1 PYELOGRAM, URETEROSCOPY, 2:01 PM STRAIGHTENER LASER LITHOTRIPSY, WITH URETERAL STENT PLACEMENT Special Needs ROOM 4043LINDA ORDERING HOMIUM LASER jtBIOMED NOTIFIED REMOVAL, STENT, URETER, 09/21/2019 N20.1 CYSTOSCOPIC 2:01 PM STRAIGHTENER Special Needs ROOM 4043LINDA ORDERING HOMIUM LASER jtBIOMED NOTIFIED GLUCOSE POC Routine 09/21/2019 11:34 AM STRAIGHTENER GLUCOSE POC Routine 09/21/2019 7:40 AM STRAIGHTENER TRIIODOTHYRONINE Add-On 09/21/2019 3:43 AM STRAIGHTENER THYROID CASCADE Add-On 09/21/2019 3:43 AM STRAIGHTENER T4 FREE Add-On 09/21/2019 3:43 AM STRAIGHTENER HEMOGLOBIN A1C Add-On 09/21/2019 3:43 AM STRAIGHTENER COMPREHENSIVE METABOLIC Routine 09/21/2019 PANEL 3:43 AM STRAIGHTENER CBC AND DIFF (MANUAL DIFF Routine 09/21/2019 IF NECESSARY) 3:43 AM STRAIGHTENER GLUCOSE POC Routine 09/20/2019 11:58 PM STRAIGHTENER GLUCOSE POC Routine 09/20/2019 8:23 PM STRAIGHTENER GLUCOSE POC Routine 09/20/2019 5:01 PM STRAIGHTENER GLUCOSE POC Routine 09/20/2019 11:20 AM STRAIGHTENER GLUCOSE POC Routine 09/20/2019 7:35 AM STRAIGHTENER US ABDOMEN LIMITED Routine 09/20/2019 6:07 AM STRAIGHTENER GLUCOSE POC Routine 09/20/2019 4:06 AM STRAIGHTENER LACTATE VENOUS WB Timed 09/20/2019 2:19 AM STRAIGHTENER COMPREHENSIVE METABOLIC Routine 09/20/2019 PANEL 2:19 AM STRAIGHTENER CBC AND DIFF (MANUAL DIFF Routine 09/20/2019 IF NECESSARY) 2:19 AM STRAIGHTENER GLUCOSE POC Routine 09/20/2019 12:03 AM STRAIGHTENER TROPONIN Timed 09/19/2019 11:12 PM STRAIGHTENER LACTATE VENOUS WB Timed 09/19/2019 11:12 PM STRAIGHTENER GLUCOSE POC Routine 09/19/2019 10:26 PM STRAIGHTENER XR CHEST 2 VIEWS (PA AND Routine 09/19/2019 LATERAL) 9:[address] HEAD WO CONTRAST STAT 09/19/2019 9:12 PM STRAIGHTENER TROPONIN Timed 09/19/2019 8:15 PM STRAIGHTENER LACTATE VENOUS WB Timed 09/19/2019 8:15 PM STRAIGHTENER GLUCOSE POC Routine 09/19/2019 7:45 PM STRAIGHTENER GLUCOSE POC Routine 09/19/2019 5:09 PM STRAIGHTENER CULTURE, BLOOD Timed 09/19/2019 4:56 PM STRAIGHTENER CULTURE, BLOOD Timed 09/19/2019 4:53 PM STRAIGHTENER TROPONIN STAT 09/19/2019 4:53 PM STRAIGHTENER LIPASE Add-On 09/19/2019 4:53 PM STRAIGHTENER LACTATE VENOUS WB Routine 09/19/2019 4:53 PM STRAIGHTENER COMPREHENSIVE METABOLIC STAT 09/19/2019 PANEL 4:53 PM STRAIGHTENER COMPLETE BLOOD COUNT STAT 09/19/2019 4:53 PM STRAIGHTENER GLUCOSE POC Routine 09/19/2019 4:35 PM STRAIGHTENER ECG Routine 09/19/2019 3:45 PM STRAIGHTENER GLUCOSE POC Routine 09/19/2019 3:23 PM STRAIGHTENER GLUCOSE POC Routine 09/19/2019 11:48 AM STRAIGHTENER URINALYSIS MICROSCOPIC Routine 09/19/2019 ONLY 11:35 AM STRAIGHTENER URINALYSIS REFLEX Routine 09/19/2019 11:35 AM STRAIGHTENER CULTURE, URINE Routine 09/19/2019 11:35 AM STRAIGHTENER GLUCOSE POC Routine 09/19/2019 7:43 AM STRAIGHTENER GLUCOSE POC Routine 09/19/2019 3:40 AM STRAIGHTENER GLUCOSE POC Routine 09/18/2019 11:31 PM STRAIGHTENER GLUCOSE POC Routine 09/18/2019 9:03 PM STRAIGHTENER GLUCOSE POC Routine 09/18/2019 5:14 PM STRAIGHTENER GLUCOSE POC Routine 09/18/2019 12:16 PM STRAIGHTENER CBC AND DIFF (MANUAL DIFF Routine 09/18/2019 IF NECESSARY) 9:49 AM STRAIGHTENER GLUCOSE POC Routine 09/18/2019 8:41 AM STRAIGHTENER BASIC METABOLIC PANEL Routine 09/18/2019 8:06 AM STRAIGHTENER GLUCOSE POC Routine 09/18/2019 4:07 AM STRAIGHTENER GLUCOSE POC Routine 09/18/2019 12:04 AM STRAIGHTENER LACTATE VENOUS WB Timed 09/17/2019 10:39 PM STRAIGHTENER GLUCOSE POC Routine 09/17/2019 7:58 PM STRAIGHTENER LACTATE VENOUS WB Timed 09/17/2019 7:24 PM STRAIGHTENER GLUCOSE POC Routine 09/17/2019 5:10 PM STRAIGHTENER TROPONIN Timed 09/17/2019 3:47 PM STRAIGHTENER LACTATE VENOUS WB Timed 09/17/2019 3:47 PM STRAIGHTENER CULTURE, BLOOD STAT 09/17/2019 1:02 PM STRAIGHTENER CULTURE, BLOOD STAT 09/17/2019 12:38 PM STRAIGHTENER TROPONIN STAT 09/17/2019 12:38 PM STRAIGHTENER LACTATE VENOUS WB STAT 09/17/2019 12:38 PM STRAIGHTENER URINALYSIS MICROSCOPIC STAT 09/17/2019 ONLY 10:05 AM STRAIGHTENER URINALYSIS REFLEX STAT 09/17/2019 10:05 AM STRAIGHTENER CULTURE, URINE STAT 09/17/2019 10:[address] ABDOMEN PELVIS W STAT 09/17/2019 CONTRAST 8:59 AM STRAIGHTENER TROPONIN STAT 09/17/2019 8:38 AM STRAIGHTENER LIPASE STAT 09/17/2019 8:38 AM STRAIGHTENER COMPREHENSIVE METABOLIC STAT 09/17/2019 PANEL 8:38 AM STRAIGHTENER CBC AND DIFF (MANUAL DIFF STAT 09/17/2019 IF NECESSARY) 8:38 AM STRAIGHTENER XR CHEST SINGLE VIEW STAT 09/17/2019 FRONTAL 7:58 AM STRAIGHTENER ECG STAT 09/17/2019 7:44 AM STRAIGHTENER PULSE OXIMETRY, STAT 09/17/2019 CONTINUOUS 7:43 AM STRAIGHTENER documented in this encounter Results * GLUCOSE POC (09/23/2019 12:11 PM STRAIGHTENER) Only the most recent of 39 results within the time period is included. Glucose POC 166 (H) 70 - 100 mg/dL [facility] Specimen Performing Organization Address City/[facility] Ph one Number [facility] [address] [facility] [place] [address] [facility] [address] [facility] [place] [address], [facility] * Basic Metabolic Panel (09/23/2019 3:03 AM STRAIGHTENER) Only the most recent of 2 results within the time period is included. Pathologist [facility] Sodium 135 133 - 147 MEQ/L [facility] Potassium 3.7 3.5 - 5.3 MEQ/L [facility] Chloride 94 (L) 96 - 112 MEQ/L [facility] Carbon Dioxide 36 (H) 20 - 32 MEQ/L [facility] Anion Gap 5 5 - 17 [facility] Calcium 9.0 8.4 - 10.5 mg/dL [facility] Glucose 146 (H) 70 - 100 mg/dL [facility] Blood Urea 30 (H) 7 - 26 mg/dL [facility] Center[facility] Technologi[facility] Nitrogen [facility] Creatinine 0.7 0.4 - 1.1 mg/dL [facility] eGFR Female AA 100 60 - 200 [facility] mL/min/1.73sq m [facility] Jhonatan[facility] eGFR Female 83 60 - 200 [facility] Non-AA mL/min/1.73sq [facility] [employer] [facility] Specimen Blood Performing Organization Address City/[facility] Ph one Number [facility] [address] [facility] Bl[facility] [place] [address] [facility] Ramos [address] [facility] [place] [address] [facility] * CBC and Diff (manual diff if necessary) (09/23/2019 3:03 AM STRAIGHTENER) Only the most recent of 5 results within the time period is included. WBC 8.80 4.00 - 11.00 TH/uL [facility] RBC 3.48 (L) 4.00 - 5.00 MIL/uL [facility] Hemoglobin 11.3 (L) 12.0 - 15.0 g/dL [facility] Hematocrit 35 (L) 36 - 45 % [facility] MCV 99 80 - 99 fL [facility] Cedric Israel [facility] MCH 33 27 - 34 pg [facility] MCHC 33 32 - 36 % [facility] RDW 13.6 11.5 - 14.5 % [facility] Platelet Count 172 140 - 400 TH/uL [facility] MPV 10.0 9.4 - 12.3 fL [facility] Nucleated RBCs 0 0 - 0 /100 [facility] % Neutrophils 54 45 - 78 % [facility] %Lymphocytes 34 15 - 47 % [facility] %Monocytes 10 0 - 12 % [facility] %Eosinophils 2 0 - 7 % [facility] %Basophils 0 0 - 2 % [facility] % Imm Grans 0 0 - 1 % [facility] # Granulocytes 4.77 1.7 - 6.8 TH/uL [facility] # Lymphocytes 2.95 1.0 - 3.3 TH/uL [facility] # Monocytes 0.88 0.2 - 0.9 TH/uL [facility] # Eosinophils 0.16 0.0 - 0.4 TH/uL [facility] # Basophils 0.01 0.0 - 0.1 TH/uL [facility] Specimen Blood Performing Organization Address City/State/Zipcode Ph one Number [facility] [address] [place] [address] [facility] [address] [place] [address] [facility] * FL Retrograde Urography in OR (09/21/2019 2:52 PM STRAIGHTENER) Specimen Impressions Performed At Fluoroscopic support for the Urology services. Becky teresa see operative LEVI report for details. READING SITE: [facility] Narrative Performed At Patient: ISIAH BENÍTEZ YAIMAJEFFREY Sex#: F #: [id number] Jose #: [id number] Location: [facility] MAIN OR NONE Procedure Requested: [id number] FL RETRO GRADE UROGRAPHY IN OR Reason [...] Rad Results In - 09/21/2019 3:21 PM STRAIGHTENER Patient: ISIAH BENÍTEZ Sex#: F #: 1950 Jose#: [id number] Location: [facility] MAIN OR NONE Procedure Requested: [id number] FL RETROGRADE UROGRAPHY IN OR Reason for [...] see operative report for details. READING SITE: [facility] Performing Organization Address [facility] one Number LEVI * Stone Analysis (09/21/2019 2:33 PM STRAIGHTENER) Stone Color Brown [facility] Stone Size [id number]: Specimen received mm [facility] as fragments. Stone Weight 61.4 mg [facility] Stone CommentComment: Percentage [facility] Composition (Represents the % compositi on) Stone Ca 10 % [facility] oxalate dihydrate Stone Ca 90 % [facility] oxalate monohydr Stone Comment Comment [facility] Comment: Calculi report will follow via computer, mail or engraver picture delivery. Stone Comment Comment [facility] Comment: Physician questions regarding Calculi Analysis contact [facility] at: [phone]. Disclaimer : Comment [facility] Comment: This test was developed and its performance characteristics determined by [facility]. It has not been cleared or approved by the Food and Drug Administration. Test performed at [facility] Stone Analysis [address] [place] [address] [place] [address] Source CommentComment: Left Ureter [facility] Specimen Stone - Left Ureter Performing Organization Address [facility] one Number RL [address] [place], [place] [address] [facility] Interface [id number] [place] [address] [address] * Triiodothyronine (09/21/2019 3:43 AM STRAIGHTENER) Triiodothyronin 0.8 (L) 1.0 - 1.7 ng/mL [facility] Lab Specimen Blood Performing Organization Address [facility] Ph one Number [facility] [address] [place] [address] LABORATORIES [facility] [address] [place] [address] * T4 Free (09/21/2019 3:43 AM STRAIGHTENER) T4 Free 1.0 0.8 - 2.2 ng/dL [facility] Specimen Blood Performing Organization Address City/[facility] Ph one Number [facility] [address] [place] [address] [facility] [address] [place] [address] [facility] * Thyroid [place] (09/21/2019 3:43 AM STRAIGHTENER) Thyroid 0.37 (L) 0.47 - 4.68 uIU/mL [facility] Roshni bello Stimulating Cedric Israel's Hormone [facility] Specimen Blood Performing Organization Address City/[facility] Ph one Number [facility] [address] [place] [address] [facility] Mancusos [address] [place] [address] [facility] * Hemoglobin A1C (09/21/2019 3:43 AM STRAIGHTENER) Pathologist [facility] Hemoglobin A1C 12.4 (H) 4.0 - 5.6 % [facility] Comment: Hospital Lab Non-diabetic 4.0 - 5.6 % Prediabetes 5.7 - 6.4 % Diabetes >= 6.5 % Specimen Blood Performing Organization Address City/[facility] Ph one Number [facility] [address] [place] [address] LABORATORIES [facility] [address] [place] [address] * Comprehensive Metabolic Panel (09/21/2019 3:43 AM STRAIGHTENER) Only the most recent of 4 results within the time period is included. Sodium 136 133 - 147 MEQ/L frank [facility] Potassium 3.9 3.5 - 5.3 MEQ/L [facility] Chloride 96 96 - 112 MEQ/L [facility] Carbon Dioxide 36 (H) 20 - 32 MEQ/L [facility] Anion Gap 5 5 - 17 [facility] Calcium 10.0 8.4 - 10.5 mg/dL [facility] Glucose 107 (H) 70 - 100 mg/dL [facility] Protein Total 7.8 6.0 - 8.2 g/dL [facility] Serum [facility] Albumin 4.1 3.5 - 5.0 g/dL [facility] Alkaline 142 (H) 42 - 140 IU/L [facility] Phosphatase [facility] Alanine 94 (H) 0 - 34 IU/L [facility] Aminotransferas [facility] e [facility] Aspartate 36 15 - 46 IU/L [facility] Aminotransferas [facility] e [facility] Bilirubin Total 0.4 0.2 - 1.3 mg/dL [facility] Blood Urea 26 7 - 26 mg/dL [facility] Nitrogen [facility] Creatinine 0.8 0.4 - 1.1 mg/dL [facility] eGFR Female AA 86 60 - 200 [facility] mL/min/1.73sq [facility] eGFR Female 72 60 - 200 [facility] Non-AA mL/min/1.73sq [facility] Specimen Blood Performing Organization Address City/State/Zipcode Ph one Number [facility] [address] [place] [address] [facility] [address] [facility] [place] [address] [facility] * US Abdomen limited (09/20/2019 6:07 AM STRAIGHTENER) Specimen Impressions Performed At Impression: LEVI 1. Diffuse hepatic steatosis without fo rosalind hepatic lesion. 2. Cholecystectomy. ATTESTATION STATEMENT: The Staff Radiologist has personally re viewed this study and agrees with the findings in this report. READING SITE: [facility] Narrative Performed At Patient: ISIAH BENÍTEZ Sex#: F #: 1950 Jose #: [id number] [place] [facility] 4 U 1 [facility]10-[facility] Access ion#: [id number] Procedure Requested: [id number] US ABDOM EN LIMITED Reason for Exam: [...] Rad Results In - 09/20/2019 7:38 AM STRAIGHTENER Patient: ISIAH BENÍTEZ Sex#: F #: 1950 Jose#: [id number] Location: [facility] 4 U 1 4042-08 Procedure Requested: [id number] US ABDOMEN LIMITED Reason for Exam: elevated [...] the findings in this report. READING SITE: [facility] Performing Organization Address [facility] one Edgar SIMS * Lactate Venous WB (09/20/2019 2:19 AM STRAIGHTENER) Only the most recent of 8 results within the time period is included. Lactate Venous 1.8 0.0 - 2.0 mmol/L [facility] Specimen Blood Narrative Performed At Reflex sepsis screen >2.0 [facility] Performing Organization Address [facility] one Number [facility] [address] [place] [address] [facility] Cedric Jhonatan's [address] [place] [address] [facility] [address] [place] [address], [facility] * Troponin - 3 and 6 hr (09/19/2019 11:12 PM STRAIGHTENER) Only the most recent of 6 results within the time period is included. Troponin <0.01 0.00 - 0.03 ng/mL [facility] Comment: Cedric Israel[facility] Troponin Value [facility] Interpretation 0.00 - 0.03 Healthy 0.04 - 0.12 Increased Cardiac Risk >0.12 Myocardial Infarction Troponin may not become elevated until 6 to 8 hours after onset of symptoms. Specimen Blood Performing Organization Address City/State/Zipcode Ph one Number [facility] [address] [place] [address] [facility] Ramos [address] [place] [address] [facility] * XR Chest 2 views (PA and lateral) (09/19/2019 9:19 PM STRAIGHTENER) Specimen Impressions Performed At 1. Bibasilar subsegmental atelectasis. LEVI READING SITE: [facility] Narrative Performed At Patient: ISIAH BENÍTEZ Sex#: F #: 1950 Jose #: [id number] Location: [place] [address] 4042-08 Access ion#: [id number] Procedure Requested: [id number] XR CHEST 2 VIEWS (PA AND LATERAL) [...] Rad Results In - 09/19/2019 9:54 PM STRAIGHTENER Patient: ISIAH BENÍTEZ Sex#: F #: 1950 Jose#: [id number] Location: [place] [address] 4042-08 Procedure Requested: [id number] XR CHEST 2 VIEWS (PA AND LATERAL) Reason for Exam: dyspnea Exam Ordered: 09/19/2019 1541 Exam Date/Time: 09/19/2019 2119 Begin exam date/time: 09/19/20192110 XR CHEST 2 VIEWS (PA AND LATERAL) INDICATION: dyspnea. COMPARISON STUDY: None. FINDINGS: Life Support Devices: None. Lungs/Pleura: Normal lung volume. No focal airspace disease. Bibasilar subsegmental atelectasis Normal pulmonary vasculature. No pleural effusion or pneumothorax Heart and Mediastinum: Stable cardiomediastinal silhouette and great vessels. Bones and Soft Tissues: Stable regional skeleton and soft tissues. IMPRESSION 1. Bibasilar subsegmental atelectasis. READING SITE: [facility] Performing Organization Address City/State/Zipcode Ph one Number LEVI * CT Head wo contrast (09/19/2019 9:12 PM STRAIGHTENER) Specimen Impressions Performed At Impression: LEVI No acute intracranial process. Mild cerebral volume loss. Mild chronic small vessel ischemic disease. The above findings are in general agree ment with those in the preliminary report provided by [employer]. READING SITE: [facility]. ATTESTATION STATEMENT: The Staff Radiol ogist has personally reviewed the images and dictated, reviewed, or edite d the final report. Narrative Performed At Patient: ISIAH BENÍTEZ Sex#: F #: 1950 Jose #: [id number] Location: [place] [address] Access ion#: [id number] Procedure Requested: [id number] CT HEAD WO CONTRAST Reason for Exam: [...] The mastoid air cells are clear. The caul puller topogram shows no lytic lesio n or fracture. Procedure Note Interface, Rad Results In - 09/20/2019 10:19 AM STRAIGHTENER Patient: ISIAH BENÍTEZ Sex#: F #: 1950 Jose#: [id number] [place] [facility] 4 U 1 4043-01 Procedure Requested: [id number] CT HEAD WO CONTRAST Reason for Exam: [...] The mastoid air cells are clear. The caul puller topogram shows no lytic lesion or fracture. IMPRESSION Impression: No acute intracranial process. Mild cerebral volume loss. Mild chronic small vessel ischemic disease. The above findings are in general agreement with those in the preliminary report provided by [employer]. READING SITE: [facility]. ATTESTATION STATEMENT: The Staff Radiologist has personally reviewed the images and dictated, reviewed, or edited the final report. Performing Organization Address City/State/Zipcode Ph one Number LEVI * Culture, Blood (09/19/2019 4:56 PM STRAIGHTENER) Only the most recent of 4 results within the time period is included. Culture Result No Growth at 5 days [facility] Specimen Blood Narrative Performed At 3ml rfa [facility]ATORIES Performing Organization Address City/[facility] Ph one Number [facility] [address] [place] [address] LABORATORIES [facility] [address] [place] [address] * Lipase (09/19/2019 4:53 PM STRAIGHTENER) Only the most recent of 2 results within the time period is included. Lipase 143 23 - 300 IU/L [facility] Specimen Blood Performing Organization Address [facility] Ph one Number [facility] [address] [facility] [place] [address] [facility] [address] [facility] [place] [address] [facility] * Complete Blood Count (09/19/2019 4:53 PM STRAIGHTENER) WBC 10.54 4.00 - 11.00 TH/uL [facility] RBC 4.33 4.00 - 5.00 MIL/uL [facility] Hemoglobin 14.0 12.0 - 15.0 g/dL [facility] Hematocrit 43 36 - 45 % [facility] MCV 99 80 - 99 fL [facility] MCH 32 27 - 34 pg [facility] MCHC 33 32 - 36 % [facility] RDW 13.1 11.5 - 14.5 % [facility] Platelet Count 197 140 - 400 TH/uL [facility] MPV 10.5 9.4 - 12.3 fL [facility] Nucleated RBCs 0 0 - 0 /100 [facility] Specimen Blood Performing Organization Address [facility] one Number [facility] [address] [facility] [facility] [place] [address] [facility] [address] [facility] [place] [address] [facility] * Electrocardiogram (ECG) (09/19/2019 3:45 PM STRAIGHTENER) Only the most recent of 2 results within the time period is included. QRSd 108 TRACEMASTER QT 384 TRACEMASTER QTC 454 TRACEMASTER ECGHR 84 TRACEMASTER ECGPR 144 TRACEMASTER Specimen Narrative Performed At [facility] Test Date: 2019-09-19 Pat Name: ISIAH BENÍTEZ Department: SP1 Room: [facility] Gender: Female Physiological Chemist: [id number] : 1950 Requested By: HOPE COX Order Number: [id number] Reading MD: Louie Reyes Measurements Intervals [place] Rate: 84 P: 38 WV: 144 QRS: 3 QRSD: 108 T: 24 QT: 384 QTc: 454 Interpretive Statements SINUS RHYTHM PROBABLE LEFT VENTRICULAR HYPERTROPHY Electronically Signed On 09-20-2019 10:3 7:02 STRAIGHTENER by Louie Reyes Procedure Note Interface, External Ris In - 09/20/2019 10:37 AM STRAIGHTENER [facility] Test Date: 2019-09-19 Pat Name: ISIAH BENÍTEZ Department: SP1 Room: [facility] Gender: Female Physiological Chemist: [id number] : 1950 Requested By: HOPE COX Order Number: [id number] Reading MD: Louie Reyes Measurements Intervals [place] Rate: 84 P: 38 WV: 144 QRS: 3 QRSD: 108 T: 24 QT: 384 QTc: 454 Interpretive Statements SINUS RHYTHM PROBABLE LEFT VENTRICULAR HYPERTROPHY Electronically Signed On 09-20-2019 10:37:02 STRAIGHTENER by Louie Reyes Performing Organization Address [facility] one Number TRACEMASTER * Urinalysis Microscopic Only (09/19/2019 11:35 AM STRAIGHTENER) Only the most recent of 2 results within the time period is included. Microscopic RBC >40 (A) 0 - 5 /hpf [facility] Microscopic WBC 0-5 0 - 5 /hpf [facility] Epithelial Absent Absent [facility] Hyaline Cast Absent Absent [facility] Bacteria Absent Absent [facility] Specimen Catheter Urine Performing Organization Address City/[facility] one Number [facility] [address] [place] [address] [facility] [facility] [address] [place] [address] [facility] * Culture, Urine (09/19/2019 11:35 AM STRAIGHTENER) Only the most recent of 2 results within the time period is included. Culture Result No growth [facility] Specimen Catheter Urine Performing Organization Address [facility] one Number [facility] [address] [place] [address] LABORATORIES [facility] [address] [place] [address] * Urinalysis Reflex (09/19/2019 11:35 AM STRAIGHTENER) Only the most recent of 2 results within the time period is included. Appearance, Yellow [facility] Glucose Urine >=1000 (A) Negative mg/dL [facility] Bilirubin Urine Negative Negative [facility] Ketones Urine Negative Negative mg/dL [facility] Specific 1.020 1.001 - 1.030 [facility] Hemoglobin Large (A) Negative [facility] PH Urine 5.5 5.0 - 8.0 [facility] Protein Urine 30 (A) Negative mg/dL [facility] Urobilinogen Negative Negative EU/dL [facility] Nitrite Urine Negative Negative [facility] Leukocyte Negative Negative [facility] Specimen Catheter Urine Performing Organization Address City/State/Zipcode Ph one Number [facility] [address] [place] [address] [facility] [facility] [address] [place] [address] [facility] * CT Abdomen Pelvis w contrast (09/17/2019 8:59 AM STRAIGHTENER) Specimen Impressions Performed At 1. Interval placement [...] biliary obstruction, if clinically warranted. READING SITE: [facility] ATTESTATION STATEMENT: The staff radiol ogist has personally reviewed the images and dictated, reviewed, or edite d the final report. Narrative Performed At Patient: ISIAH BENÍTEZ Sex#: F #: [id number] Jose #: [id number] Location: [facility] -11 Procedure Requested: [id number] CT ABDOM EN PELVIS W CONTRAST Reason [...] Rad Results In - 09/17/2019 9:54 AM STRAIGHTENER Patient: ISIAH BENÍTEZ Sex#: F #: 1950 Jose#: [id number] Location: [facility] Procedure Requested: [id number] CT ABDOMEN PELVIS W CONTRAST Reason for [...] biliary obstruction, if clinically warranted. READING SITE: [facility] ATTESTATION STATEMENT: The staff radiologist has personally reviewed the images and dictated, reviewed, or edited the final report. Performing Organization Address City/State/[facility] Ph one Number L[facility] * XR Chest single view frontal (09/17/2019 7:58 AM STRAIGHTENER) Specimen Impressions Performed At 1. No acute cardiopulmonary abnormality. [facility] 2. Low lung volumes. Mild atelectasis . READING SITE: [facility] Narrative Performed At Patient: ISIAH BENÍTEZ Sex#: F #: [id number] Jose #: [id number] Location: [facility] Procedure Requested: [id number] XR CHEST SINGLE VIEW FRONTAL Reason for [...] Rad Results In - 09/17/2019 8:14 AM STRAIGHTENER Patient: ISIAH BENÍTEZ Sex#: F #: 1950 Jose#: [id number] Location: [facility] Procedure Requested: [id number] XR CHEST SINGLE VIEW FRONTAL Reason for [...] Low lung volumes. Mild atelectasis. READING SITE: [facility] Address City/State/Zipcode Ph one Number [facility] documented in this encounter Visit Diagnoses Diagnosis Pyelonephritis Unspecified pyelonephritis Sepsis, due to unspecified organism, un specified whether acute organ dysfunction present (HCC) Ureteral calculus, left Calculus of ureter Chronic respiratory failure, unspecifie d whether with hypoxia or hypercapnia (HCC) Chronic obstructive pulmonary disease, unspecified COPD type (HCC) Essential hypertension Unspecified essential hypertension Generalized abdominal pain Abdominal pain, generalized Morbid obesity due to excess calories ( HCC) SASHA on CPAP Suspected UTI Type 2 diabetes mellitus with hyperglyc emia, 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) Confusion Unspecified psychosis Elevated LFTs Other abnormal blood chemistry documented in this encounter Administered Medications Action Date Dose Rate Site Medication Order MAR Action 09/22/2019 8:23 PM STRAIGHTENER 25 mg amitriptyline (ELAVIL) tablet 25 mg Given 25 mg, Oral, Nightly, First dose on 09/17/19 at 2100 25 mg Given 09/21/2019 8:13 PM STRAIGHTENER 25 mg Given 09/20/2019 10:13 PM STRAIGHTENER 09/22/2019 8:23 PM STRAIGHTENER 40 mg atorvastatin (LIPITOR) tablet 40 mg Given 40 mg, Oral, Nightly, First dose on 09/17/19 at 2100 40 mg Given 09/21/2019 8:13 PM STRAIGHTENER 40 mg Given 09/20/2019 10:13 PM STRAIGHTENER 09/21/2019 8:16 AM STRAIGHTENER 2 g cefTRIAXone (ROCEPHIN) injection 2 g Given 2 g, Intravenous, Daily, Indications: UTI, First dose on 09/17/19 at 1300, If giving IV push, reconstitute each vial with 20 ml sterile water and give over 3-5 minutes If sterile water is unavailable, may use Bacteriostatic Water or Normal Saline for reconstitution , 2 g Given 09/20/2019 9:03 AM STRAIGHTENER 2 g Given 09/19/2019 8:17 AM STRAIGHTENER 09/23/2019 8:23 AM STRAIGHTENER 20 mg citalopram (CeleXA) tablet 20 mg Given 20 mg, Oral, Daily, First dose on 09/17/19 at 1240 20 mg Given 09/22/2019 8:50 AM STRAIGHTENER 20 mg Given 09/20/2019 9:00 AM STRAIGHTENER 09/17/2019 8:04 PM STRAIGHTENER 10 mg cyclobenzaprine (FLEXERIL) tablet 10 mg [...] Call physician if less than 70 mg/dL., 09/21/2019 1:52 PM STRAIGHTENER 12.5 mg diphenhydrAMINE (BENADRYL) injection Given 12.5 mg 12.5 mg, Intravenous, Once, Ju 09/21/19 at 1415, For 1 dose, Pre-op 09/22/2019 10:31 AM STRAIGHTENER 100 mg docusate sodium (COLACE) capsule 100 mg Given 100 mg, Oral, 2 times daily PRN, stool softening, Starting Lemmon 09/17/19 at 1238 , DO NOT CRUSH OR CHEW., 100 mg Given 09/20/2019 9:00 AM STRAIGHTENER 100 mg Given 09/17/2019 5:47 PM STRAIGHTENER 09/21/2019 1:52 PM STRAIGHTENER 20 mg famotidine (PEPCID) injection 20 mg Given 20 mg, Intravenous, Once, Ju 09/21/19 a t 1415, For 1 dose, Pre-op fentaNYL (SUBLIMAZE) injection 12.5 mcg 12.5 mcg, Intravenous, Every 2 hours PRN, severe pain (pain score 7-10), breakthrough pain, pain if unable to tolerate oral medications, Starting 09/22/19 at 1024, Administer over 2 minutes; max dose for IVP is 2 mcg/kg. Note: Limit does not apply to patients who may be tolerant to opioid therapy o r on continuous IV or PO opiate therapy., 09/18/2019 9:04 AM STRAIGHTENER 25 mcg fentaNYL (SUBLIMAZE) injection 25 mcg Given 25 mcg, Intravenous, Every 2 hours PRN, breakthrough pain, Starting 09/17/19 at 1239, Administer over 2 minutes; max dose for IVP is 2 mcg/kg. Note: Limit does not apply to patients who may be tolerant to opioid therapy or on continuous IV or PO opiate therapy., 25 mcg Given 09/18/2019 3:57 AM STRAIGHTENER 25 mcg Given 09/17/2019 7:58 PM STRAIGHTENER 09/21/2019 3:14 PM STRAIGHTENER 50 mcg fentaNYL (SUBLIMAZE) injection 25-50 mcg Given 25-50 mcg, Intravenous, Every 5 min PRN , moderate pain (pain score 4-6), severe pain (pain score 7-10), (1st line), Starting Ju 09/21/19 at 1455, PACU (only), Start with 25 mcg dose. If pain unimproved or escalating after first dose, may administer in 50 mcg doses. Maximum cumulative dose of all administrations = 200 mcg. May use 2nd line therapy once maximum cumulative dose has been reached., 09/17/2019 8:44 AM STRAIGHTENER 50 mcg fentaNYL (SUBLIMAZE) injection 50 mcg Given 50 mcg, Intravenous, Once, Lemmon 09/17/19 at 0800, For 1 dose, Administer over 2 minutes; max dose for IVP is 2 mcg/kg. Note: Limit does not apply to patients who may be tolerant to opioid therapy o r on continuous IV or PO opiate therapy., 09/17/2019 9:41 AM STRAIGHTENER 50 mcg fentaNYL (SUBLIMAZE) injection 50 mcg Given 50 mcg, Intravenous, Once, Lemmon 09/17/19 at 0941, For 1 dose, Administer over 2 minutes; max dose for IVP is 2 mcg/kg. Note: Limit does not apply to patients who may be tolerant to opioid therapy o r on continuous IV or PO opiate therapy., 09/23/2019 8:10 AM STRAIGHTENER 1 puff fluticasone furoate-vilanterol (BREO Given ELLIPTA) 200-25 mcg/actuation inhaler 1 puff 1 puff, Inhalation, Daily, First dose o n Lemmon 09/17/19 at 1240, Rinse mouth with water after use if patient not on vent. , 1 puff Given 09/22/2019 8:51 AM STRAIGHTENER 1 puff Given 09/21/2019 8:11 AM STRAIGHTENER 09/23/2019 8:23 AM STRAIGHTENER 600 mg gabapentin (NEURONTIN) capsule 600 mg Given 600 mg, Oral, 3 times daily, First dose on Lemmon 09/17/19 at 1240 600 mg Given 09/22/2019 8:23 PM STRAIGHTENER 600 mg Given 09/22/2019 4:07 PM STRAIGHTENER glucagon (GLUCAGEN) injection 1 mg 1 mg, Intramuscular, As needed, low blood sugar, low blood sugar, Starting Lemmon 09/17/19 at 1240, Give if patient WATERMELON INSPECTOR O and no IV access. May give IM or SQ in arm and turn patient on side. Reconstitute powder for injection by adding 1 mL of senior gis analyst-supplied sterile diluent or sterile water for injection [...] for injection by adding 1 mL of senior gis analyst-supplied sterile diluent o r sterile water for [...] Call physician if less than 70 mg/dL., 09/17/2019 1:12 PM STRAIGHTENER 25 mg hydroCHLOROthiazide (HYDRODIURIL) tablet Given 25 mg 25 mg, Oral, Daily, First dose on 09/17/19 at 1240 09/23/2019 8:23 AM STRAIGHTENER 25 mg hydroCHLOROthiazide (HYDRODIURIL) tablet Given 25 mg 25 mg, Oral, Daily, First dose on Wed09/20/19 at 0900 25 mg Given 09/22/2019 8:50 AM STRAIGHTENER 25 mg Given 09/20/2019 9:00 AM STRAIGHTENER 09/21/2019 8:13 PM STRAIGHTENER 0.125 mg hyoscyamine (LEVSIN/SL) SL tablet 0.125 Given mg 0.125 mg, Sublingual, Every 4 hours PRN , bladder spasms, Starting Wed09/18/19 at 0905 0.125 mg Given 09/20/2019 2:37 PM STRAIGHTENER 0.125 mg Given 09/18/2019 11:59 PM STRAIGHTENER 09/17/2019 8:05 PM STRAIGHTENER 20 Units Left Low er Abdomen insulin glargine (LANTUS) injection 20 Given Units 20 Units, Subcutaneous, Nightly, First dose on Wed09/17/19 at 209909/18/2019 9:15 PM STRAIGHTENER 22 Units Left Arm insulin glargine (LANTUS) injection 22 Given Units 22 Units, Subcutaneous, Nightly, First dose (after last modification) on Wed09/18/19 at 209909/22/2019 9:31 PM STRAIGHTENER 25 Units Left Low er Abdomen insulin glargine (LANTUS) injection 25 Given Units 25 Units, Subcutaneous, Nightly, First dose (after last modification) on Wed09/19/19 at 2100 25 Units Left Lower Abdomen Given 09/21/2019 8:14 PM STRAIGHTENER 25 Units Right Lower Abdomen Given 09/20/2019 9:00 PM STRAIGHTENER 09/18/2019 9:15 PM STRAIGHTENER 3 Units Left Arm insulin lispro (HumaLOG) injection 1-6 Given Units 1-6 Units, Subcutaneous, 4 times daily before meals and nightly, First dose on Wed09/17/19 at 1242, LEVEL 2 Give in addition to scheduled mealtime insulin per table Glucose Level (mg/dL) Dose <120 No Insulin 121-150 No Insulin 151-200 1 units 201-250 2 units 251-300 3 units 301-350 4 units 351-400 5 units >400 6 units Bedtime Correction - If glucose level is < [...] blood glucose check - dose per table, 3 Units Right Arm Given 09/18/2019 5:39 PM STRAIGHTENER 3 Units Left Arm Given 09/18/2019 12:43 PM STRAIGHTENER 09/19/2019 5:34 PM STRAIGHTENER 4 Units Left Arm insulin lispro (HumaLOG) injection 2-12 Given Units 2-12 Units, Subcutaneous, 4 times daily before meals and nightly, First dose on Wed09/19/19 at 1230, LEVEL 4 Give in addition to scheduled mealtime insulin per table Glucose Level (mg/dL) Dose <120 No Insulin 121-150 No Insulin 151-200 2 units 201-250 4 units 251-300 6 units 301-350 8 units 351-400 10 units >400 12 units Bedtim e Correction - If glucose [...] blood glucose check - dose per table, 8 Units Left Arm Given 09/19/2019 12:19 PM STRAIGHTENER 09/19/2019 8:17 AM STRAIGHTENER 5 Units Right Lo wer Abdomen insulin lispro (HumaLOG) injection 2-7 Given Units 2-7 Units, Subcutaneous, 4 times daily before meals and nightly, First dose on Wed09/19/19 at 0815, LEVEL 3 Give in addition to scheduled mealtime insulin per table Glucose Level (mg/dL) Dose <120 No Insulin 121-150 No Insulin 151-200 2 units 201-250 3 units 251-300 4 units 301-350 5 units 351-400 6 units >400 7 units Bedtime Correction - If glucose level is < [...] blood glucose check - dose per table, 09/23/2019 12:39 PM STRAIGHTENER 3 Units Right Lo wer Abdomen insulin [...] Left Lower Abdomen Given 09/22/2019 9:31 PM STRAIGHTENER 15 Units Left Lower Abdomen Given 09/22/2019 4:41 PM STRAIGHTENER 09/17/2019 10:15 AM STRAIGHTENER 5 Units Right Ar m insulin regular (HumuLIN R) injection 5 Given Units 5 Units, Subcutaneous, Once, Sun 0 at 0945, For 1 dose 09/17/2019 9:01 AM STRAIGHTENER 91 mL iohexol (OMNIPAQUE) 350 mg iodine/mL Given injection 91 mL 91 mL, Intravenous, Once in imaging, contrast, Starting 09/17/19 at 0900, For 1 dose 09/21/2019 1:52 PM STRAIGHTENER 50 mL/hr 50 mL/hr lactated ringers infusion New Bag 50 mL/hr, Intravenous, Continuous, Starting Ju 09/21/19 at 1415, Pre-op 09/21/2019 10:16 PM STRAIGHTENER 3 mg melatonin tablet 3 mg Given 3 mg, Oral, Nightly PRN, sleep, Startin g 09/17/19 at 1238, Give 3-4 hours prior to planned bedtime., 3 mg Given 09/20/2019 10:13 PM STRAIGHTENER 3 mg Given 09/19/2019 8:22 PM STRAIGHTENER 09/23/2019 8:23 AM STRAIGHTENER 100 mg metoprolol tartrate (LOPRESSOR) tablet Given 100 mg 100 mg, Oral, 2 times daily, First dose on 09/17/19 at 1315, Hold for SBP <100, HR <55, 100 mg Given 09/22/2019 8:23 PM STRAIGHTENER 100 mg Given 09/22/2019 8:49 AM STRAIGHTENER 09/22/2019 4:45 AM STRAIGHTENER 4 mg morphine 4 mg/mL injection 4 mg Given 4 mg, Intravenous, Every 4 hours PRN, moderate pain (pain score 4-6), severe pain (pain score 7-10), Starting 09/17/19 at 1238, Administer over 5 min; max dose of IVP is 10 mg. Note: Limit does not apply to patients who may be tolerant to opioid therapy or on continuous IV or PO opiate therapy., 4 mg Given 09/21/2019 10:15 PM STRAIGHTENER 4 mg Given 09/21/2019 6:33 PM STRAIGHTENER 09/21/2019 1:45 PM STRAIGHTENER 4 mg morphine 4 mg/mL injection 4 mg Given 4 mg, Intravenous, Once, Ju 09/21/19 at 1400, For 1 dose, Pre-op, Administer over 5 min; max dose of IVP is 10 mg. Note: Limit does not apply to patients who may be tolerant to opioid therapy o r on continuous IV or PO opiate therapy., 09/17/2019 12:31 PM STRAIGHTENER 1 tablet oxyCODONE-acetaminophen (PERCOCET) 5-325 Given mg 1 tablet 1 tablet, Oral, Once, Lemmon 09/17/19 at 1216, For 1 dose, Do not exceed 4 GM/DA Y of acetaminophen. If 65 or older do no t exceed 3 GM/DAY. If chronic alcoholic d o not exceed 2 GM/DAY., 09/23/2019 8:23 AM STRAIGHTENER 2 tablets oxyCODONE-acetaminophen (PERCOCET) 5-325 Given mg 1-2 tablet 1-2 tablet, Oral, Every 6 hours PRN, moderate pain (pain score 4-6), severe pain (pain score 7-10), Starting 09/18/19 at 1139, Do not exceed 4 GM/DAY of acetaminophen. If 65 or older do no t exceed 3 GM/DAY. If chronic alcoholic d o not exceed 2 GM/DAY., 2 tablets Given 09/23/2019 2:00 AM STRAIGHTENER 2 tablets Given 09/22/2019 7:48 PM STRAIGHTENER 09/22/2019 10:31 AM STRAIGHTENER 100 mg phenazopyridine (PYRIDIUM) tablet 100 mg [...] of 20 mEq/hr through a central line., 09/22/2019 8:50 AM STRAIGHTENER 20 mg predniSONE (DELTASONE) tablet 20 mg Given 20 mg, Oral, Daily, First dose on 09/19/19 at 1230, For 4 doses, Give with food to reduce GI upset, 20 mg Given 09/20/2019 9:00 AM STRAIGHTENER 20 mg Given 09/19/2019 12:19 PM STRAIGHTENER 09/17/2019 1:12 PM STRAIGHTENER 5 mg prochlorperazine (COMPAZINE) injection Given 2.5-5 [...] nausea/vomiting (1st line), Starting 09/17/19 at 1238, Administe r if patient does [...] have IV access and refuses IM injection., 09/17/2019 8:44 AM STRAIGHTENER 1,000 mL 983.61 mL/hr sodium chloride 0.9% (NS) IV Bolus New Bag 1,000 mL, Intravenous, Administer over 61 Minutes, Once, Lemmon 09/17/19 at 0800, For 1 dose 09/17/2019 10:15 AM STRAIGHTENER 1,000 mL 983.61 mL/hr sodium chloride 0.9% (NS) IV Bolus New Bag 1,000 mL, Intravenous, Administer over 61 Minutes, Once, Lemmon 09/17/19 at 0945, For 1 dose 09/23/2019 9:07 AM STRAIGHTENER 2 mg tolterodine (DETROL) tablet 2 mg Given 2 mg, Oral, 2 times daily, First dose o n 09/17/19 at 1240 2 mg Given 09/22/2019 8:26 PM STRAIGHTENER 2 mg Given 09/22/2019 8:50 AM STRAIGHTENER documented in this encounter Additional Health Concerns Resolved Time Infection Noted Time 09/17/2019 8:17 AM STRAIGHTENER RSV 08/31/2019 6:35 PM STRAIGHTENER documented as of this encounter
--- OUTSIDE RECORDS SUMMARY | 2019-11-28 22:16 | XMS REPORT | Encounter Summary ---
Author Author [facility] Organization [facility] Address Unknown Phone Unavailable Care Team Providers Care Machine Packer Name Role Phone Ebony Sharp MD PCP Reason for Visit * HH Auth Cert Referred By Contact Referred To Contact Status Reason Specialty Diagnoses / Procedures Encounter Details Care Team Description Date Type Department Shannon Rangel CATALYST UNIT OPERATOR SN MISSED VISIT DOCUMENTATION 09/13/2019 Home Care Visit [facility] [address] [facility] [address] [place] [id number] Social History Date Tobacco Use Types Packs/Day [...] Description Date [place] [address] [place] [address] [phone] 02/29/2020 Office Visit Urology documented as of this encounter Visit Diagnoses Not on filedocumented in this encounter Additional Health Concerns Resolved Time Infection Noted Time 09/17/2019 8:17 AM VP SITE RSV 08/31/2019 6:35 PM VP SITE documented as of this encounter Home Health Visit - Care [...] Goal: Directive yes Shared: Durable Power of Stator Connector Advance (DPOA), Health Care Power directives of Stator Connector (HCPOA) and obtained, Living Will or if [...] Preference short of breath, go to s mosque, visit family, Goal: cook own meals and bathe Shared: and dress without Patient/Ca assistance. regiver will progress towards goals and achieve them documented in this encounter
--- OUTSIDE RECORDS SUMMARY | 2019-11-28 22:16 | XMS REPORT | Encounter Summary ---
Author Author [facility] Organization [facility] Address Unknown Phone Unavailable Care Team Providers Care Primer Charger Name Role Phone Ebony Sharp MD PCP Reason for Referral * Surgical (Routine) Referred By Contact Referred To Contact Status Reason Specialty Diagnoses / [place] [address] [place] [address] [place] [address], [place] [address] Authorized Urology Diagnoses Nephrolithiasis P rocedures External Uro Surgery Encounter Details Care Team Description Date [place] [address] [place] [address] [phone] Nephrolithiasis (Primary Dx) 09/14/2019 Orders Only [facility] [address] [place] [address] [id number] Social History Date Tobacco Use Types Packs/Day [...] Description Date [place] [address] [place] [address] [phone] 02/29/2020 Office Visit Urology Order Schedule Name Type Priority Associated Diag noses 1 Occurrences starting 09/14/2019 until 03/14/2021 Urine Culture Microbiology Routine Nephrolithiasis documented as of this encounter Visit Diagnoses Diagnosis Nephrolithiasis Calculus of kidney documented in this encounter Additional Health Concerns Resolved Time Infection Noted Time 09/17/2019 8:17 AM PAPER MAKER RSV 08/31/2019 6:35 PM PAPER MAKER documented as of this encounter
--- OUTSIDE RECORDS SUMMARY | 2019-11-28 22:16 | XMS REPORT | Encounter Summary ---
Author Author [facility] Organization [facility] Address Unknown Phone Unavailable Care Team Providers Care Ocean Lifeguard Name Role Phone Ebony Sharp MD PCP Reason for Visit * HH Auth Cert Referred By Contact Referred To Contact Status Reason Specialty Diagnoses / Procedures Encounter Details Care Team Description Date Type Department Aury Louis RN SN OASIS TRANSFER W/OUT DC 09/18/2019 Home Care Visit [facility] Home Care and [facility] [address] [facility] [address] [place] [phone] Social History Date Tobacco Use Types Packs/Day [...] Description Date [place] [address] [place] [address] [phone] 02/29/2020 Office Visit Urology documented as of this encounter Visit Diagnoses Not on filedocumented in this encounter Home Health Visit - Care Plan Visit Type - SN OASIS Transfer W/Out D c Discipline - Longterm Status Goals Interventions Problem [...] Goal: Directive yes Shared: Durable Power of Mechanic Assistant Advance (DPOA), Health Care Power directives of Mechanic Assistant (HCPOA) and obtained, Living Will or if [...] Preference short of breath, go to s rastafari, visit family, Goal: cook own meals and bathe Shared: and dress without Patient/Ca assistance. regiver will progress towards goals and achieve them documented in this encounter
--- OUTSIDE RECORDS SUMMARY | 2019-11-28 22:16 | XMS REPORT | Encounter Summary ---
Author Author [facility] Organization [facility] Address Unknown Phone Unavailable Care Team Providers Care Senior Industrial Engineer Name Role Phone Ebony Sharp MD PCP Encounter Details Care Team Description Date Type Department Delores Barton RN 09/07/2019 Telephone [facility] (walk-in clinic) [address] [facility] [address] [place], [place] [id number] Social History Date Tobacco Use Types Packs/Day [...] Telephone Encounter - Lacy Ramirez LPN - 09/08/2019 9:38 AM DIGITAL MARKETING LEAD Called and spoke with Linsey and advised we would for HH. TAL MARKETING LEAD * Telephone Encounter - Ebony Sharp MD - 09/08/2019 7:11 AM DIGITAL MARKETING LEAD If seen within the last 90 days, it is OK to follow. She needs to have hospital follow up visit. TAL MARKETING LEAD * Telephone Encounter - Delores Barton RN - 09/07/2019 5:30 PM DIGITAL MARKETING LEAD [facility] called asking if you would follow HH orders. Last OV 06/13/2019 If approved triage call [phone] to give verbal order. TAL MARKETING LEAD documented in this encounter Plan of Treatment Care Team Description Date [place] [address] [place] [address] [phone] 02/29/2020 Office Visit Urology documented as of this encounter Visit Diagnoses Not on filedocumented in this encounter Additional Health Concerns Resolved Time Infection Noted Time 09/17/2019 8:17 AM DIGITAL MARKETING LEAD RSV 08/31/2019 6:35 PM DIGITAL MARKETING LEAD documented as of this encounter
--- OUTSIDE RECORDS SUMMARY | 2019-11-28 22:16 | XMS REPORT | Encounter Summary ---
Author Author [facility] Organization [facility] Address Unknown Phone Unavailable Care Team Providers Care Senior Pharmacy Technician Name Role Phone Ebony Sharp MD PCP Reason for Visit * HH Auth Cert Referred By Contact Referred To Contact Status Reason Specialty Diagnoses / Procedures Encounter Details Care Team Description Date Type Department Thania Perez PT CASE COMMUNICATION 09/19/2019 Home Care Visit [facility] Home Care and [facility] [address] [facility] [address] [place] [phone] Social History Date Tobacco Use Types Packs/Day [...] Description Date [place] [address] [place] [address] [phone] 02/29/2020 Office Visit Urology documented as of [...] Goal: Directive yes Shared: Durable Power of Child Development Professor Advance (DPOA), Health Care Power directives of Child Development Professor (HCPOA) and obtained, Living Will or if [...] getting Preference short of breath, go to adventism, visit family, Goal: cook own meals and bathe Shared: and dress without Patient/Ca assistance. regiver will progress towards goals and achieve them documented in this encounter
--- OUTSIDE RECORDS SUMMARY | 2019-11-28 22:16 | XMS REPORT | Encounter Summary ---
Author Author [facility] Organization [facility] Address Unknown Phone Unavailable Care Team Providers Care Warehouse Shipping Supervisor Name Role Phone Ebony Sharp MD PCP Reason for Visit * HH Auth Cert Referred By Contact Referred To Contact Status Reason Specialty Diagnoses / Procedures Encounter Details Care Team Description Date Type Department Shannon Rangel LPN SN HOME VISIT 09/15/2019 Home Care Visit [facility] [address] [phone] Social History Date Tobacco Use [...] Signs Reading Time Taken Comments Vital Sign 112/80 09/15/2019 1:19 PM WOOD CHOPPER Blood Pressure 76 09/15/2019 1:19 PM WOOD CHOPPER Pulse 36.3 C (97.4 F) 09/15/2019 1:19 PM WOOD CHOPPER Temperature 14 09/15/2019 1:19 PM WOOD CHOPPER Respiratory Rate 92% 09/15/2019 1:19 PM WOOD CHOPPER Oxygen Saturation - - Inhaled Oxygen Concentration - - Weight - - Height - - Body Mass Index documented in this encounter Plan of Treatment Care Team Description Date [place] [address] [place] [address] [phone] 02/29/2020 Office Visit Urology documented as of this encounter Visit Diagnoses Not on filedocumented in this encounter Additional Health Concerns Resolved Time Infection Noted Time 09/17/2019 8:17 AM WOOD CHOPPER RSV 08/31/2019 6:35 PM WOOD CHOPPER documented as of this encounter Home Health Visit - Care Plan Visit Type - SN Home Visit Discipline - Long Term Status Goals Interventions Problem Descriptio Start Date n Active 2 goals linked to scheduled/documented interventions 2 goal interventions scheduled/documented in this visit SN DM: Knowledge Deficit 09/09/2019 Related to Diabetes Disciplines: Long Term Active 1 goal linked to scheduled/documented intervention 1 goal intervention scheduled/documented in this visit SN : Knowledge Deficit 09/09/2019 Related to UTI Disciplines: Long Term Active 1 goal linked to scheduled/documented intervention [...] DM Deficit Related to Diabetes No SN DM: Patient/Caregiver SN DM: will provide teach back Knowledge on disease process of DM Deficit and exacerbation Related to Description: Diabetes within 4 weeks. No SN : Patient/Caregiver SN : will [...] Associated Status Problem/Go al Patient instructed on complications of diabetes mellitus: Penitentiary Complications of Diabetes (Romulo). Patient response to teaching: teach back provided, but additional instruction needed. SN DM: Instruct Problem: Completed Patient/Caregiver on SN DM: Complications of Diabetes Knowledge Deficit Related to Diabetes Goal: SN DM: Patient/Ca regiver will provide teach back of complicati ons of DM SN assessed and instructed on disease process related to diabetes mellitus: Signs And Symptoms of Hyperglycemia (Romulo). Patient response to teaching: teach back provided. SN DM: Instruct Diabetes Problem: Completed Disease Process SN DM: Knowledge Deficit Related to Diabetes Goal: SN DM: Patient/Ca regiver will provide teach back on disease process of DM and exacerbati on Patient instructed in: How to recognize signs and symptoms of infection: urgency, frequency, burning with urination, low back pain, oral fever greater than 101 F, change in coloer, odor of urine, confusion. Patient response to teaching: teach back provided, [...] to give to agency. Advance Directives status: already obtained. Shared: Advance Problem: Completed Directives Shared: Requested/Obtained Advance Description: Directives Patient has Health Care Goal: Directive yes Shared: Durable Power of Automatic Teller Machine Servicer Advance (DPOA), Health Care Power directives of Automatic Teller Machine Servicer (HCPOA) and obtained, Living Will or if not, Copy Obtained: yes requested Location of original 3 times by document: on file agency Patient instructed in diabetic foot care of: Diabetes: Inspecting Feet (Romulo). Patient response to teaching: teach back provided. Patient states she looks at her feet after each shower. Shared: Instruct Diabetic Problem: Completed Foot Care [...]
--- OUTSIDE RECORDS SUMMARY | 2019-11-28 22:16 | XMS REPORT | Encounter Summary ---
Author Author [facility] Organization [facility] Address Unknown Phone Unavailable Care Team Providers Care Crude Oil Treater Name Role Phone Ebony Sharp MD PCP Reason for Visit * HH Auth Cert Referred By Contact Referred To Contact Status Reason Specialty Diagnoses / Procedures Encounter Details Care Team Description Date Type Department Karen Levin RN SN OASIS START OF CARE 09/09/2019 Home Care Visit [facility] Home Care and page [facility] [address] [facility] [address] [place] [address] Social History Date Tobacco Use [...] Signs Reading Time Taken Comments Vital Sign 130/76 09/09/2019 4:39 PM TURKEY PINNER Blood Pressure 85 09/09/2019 4:39 PM TURKEY PINNER Pulse 36.8 C (98.2 F) 09/09/2019 4:39 PM TURKEY PINNER Temperature 18 09/09/2019 4:39 PM TURKEY PINNER Respiratory Rate 90% 09/09/2019 4:39 PM TURKEY PINNER Oxygen Saturation - - Inhaled Oxygen Concentration 95.3 kg (210 lb) 09/09/2019 4:39 PM TURKEY PINNER Weight 152.4 cm (5') 09/09/2019 4:39 PM TURKEY PINNER Height 41.01 09/09/2019 4:39 PM TURKEY PINNER Body Mass Index documented in this encounter Progress Notes * Dale Harris RN - 09/09/2019 4:00 PM TURKEY PINNER Could you assess if patient is interested in the telemonitor when you see her to perry? EY PINNER documented in this encounter Plan of Treatment Care Team Description Date [place] [address] [place] [address] [phone] 02/29/2020 Office Visit Urology documented as of this encounter Visit Diagnoses Not on filedocumented in this encounter Additional Health Concerns Resolved Time Infection Noted Time 09/17/2019 8:17 AM TURKEY PINNER RSV 08/31/2019 6:35 PM TURKEY PINNER documented as of this encounter Home Health Visit - Care Plan Visit Type - SN OASIS Start Of Care Discipline - Correction Status Goals Interventions Problem Descriptio Start Date n Active 1 goal linked to scheduled/documented intervention 1 goal intervention scheduled/documented in this visit SN COPD: Decreased 09/09/2019 Knowledge of Disease Management Disciplines: Correction Active 1 goal linked to scheduled/documented intervention 2 goal interventions scheduled/documented in this visit SN COPD: Decreased 09/09/2019 Knowledge of Oral and Inhaled Medications Disciplines: Correction Active 1 goal linked to scheduled/documented intervention 2 goal interventions scheduled/documented in this visit SN COPD: Decreased 09/09/2019 Knowledge of Secretion Management Disciplines: Correction Active 1 goal linked to scheduled/documented intervention 3 goal interventions scheduled/documented in this visit SN COPD: Shortness of 09/09/2019 Breath Disciplines: Correction Active 1 goal linked to scheduled/documented intervention 1 goal intervention scheduled/documented in this visit SN DM: Coping Alteration 09/09/2019 from Lifestyle Changes Disciplines: Correction Active 3 goals linked to scheduled/documented interventions 3 goal interventions scheduled/documented in this visit SN DM: Knowledge Deficit 09/09/2019 Related to Diabetes Disciplines: Correction Active 1 goal linked to scheduled/documented intervention 1 goal intervention scheduled/documented in this visit SN : Knowledge Deficit 09/09/2019 Related to UTI Disciplines: Correction Active 1 goal linked to scheduled/documented intervention 1 goal intervention scheduled/documented in this visit SN : Knowledge Deficit 09/09/2019 Related to Urinary Incontinence Disciplines: Correction Active 1 goal linked to scheduled/documented intervention 1 goal intervention scheduled/documented in this visit Shared: Advance 09/09/2019 Directives Disciplines: Correction, SHARED Active 1 goal linked to scheduled/documented intervention 2 goal interventions scheduled/documented in this visit Shared: Agency Parameters 09/09/2019 Disciplines: Correction, Physical Therapy, Occupational Therapy, SHARED Active 1 goal linked to scheduled/documented intervention 1 goal intervention scheduled/documented in this visit Shared: Diabetes: 09/09/2019 Knowledge Deficit Related to Diabetic Foot Care Disciplines: Correction, Physical Therapy, Occupational Therapy, SHARED Active 1 goal linked to scheduled/documented intervention 2 goal interventions scheduled/documented in this visit Shared: Medication Management [...] 3 goal interventions scheduled/documented in this visit Shared: Patient Strength, 09/09/2019 Goals and Care Preferences Disciplines: Correction, Physical Therapy, Occupational Therapy, SHARED Active 1 goal linked to scheduled/documented intervention 1 goal intervention scheduled/documented in this visit Shared: Patient/Provider 09/09/2019 Communication and Provision of Supplies Disciplines: Correction, Physical Therapy, Occupational Therapy, SHARED Active 1 goal linked to scheduled/documented intervention 1 goal intervention scheduled/documented in this visit Shared: Risk of Falls 09/09/2019 Disciplines: Correction, Physical Therapy, Occupational Therapy, SHARED Goal Met? Visit Notes Goal Associated Outcome Problem No SN COPD: Patient will SN COPD: demonstrate improved Decreased ability to manage disease Knowledge in home, resulting in of Disease decreased Management hospitalizations by the end of the episode of care No SN COPD: SN COPD: Patient/Caregiver will Decreased demonstrate ability to Knowledge manage COPD medications of Oral Description: and In 2 weeks, patient will Inhaled demonstrate 100% accuracy Medication with taking s inhaled/nebulized medications with no verbal cues for 3 concurrent visits in order for patient to obtain full benefit of medications. No SN COPD: Patient will SN COPD: demonstrate secretion Decreased management Knowledge Description: of with no assist by the end Secretion of the episode of care Management No SN COPD: SN COPD: Patient/Caregiver will Shortness demonstrate recongition of Breath and management of shortness of breath Description: with use of VRI scale by the end of the episode of care No SN DM: Patient/Caregiver SN DM: will [...] 3 times Directives by agency No Shared: HH to notify Shared: physician if patient is Agency symptomatic or outside of Parameters established agency or physician parameters No Shared: Patient will be Shared: able [...] Plan of Care Shared: communicated to Patient/Pr patient/raghu physician Communicat ion and Provision of Supplies No Shared: Patient will be Shared: safe [...] understanding with 50% accuracy. Needed cues for understanding of prognosis, management and avoiding of exacerbations. Patient instructed in complications of COPD using Chronic Lung Disease - Avoiding Irritants and Allergens (Romulo) and Chronic Lung Disease - Maximizing Your Energy (Romulo) and is able to verbalize understanding with 50% accuracy. Needed cues for understanding of prognosis, management and avoiding of exacerbations. SN COPD: Assess Disease Problem: Completed Management Knowledge SN COPD: Description: Decreased Nurse will assess for Knowledge patient of Disease s/caregiver Management s understanding of Goal: SN prognosis, management and COPD: avoiding of Patient exacerbations. will demonstrat e improved ability to manage disease in home, resulting in decreased hospitaliz ations by the end of the episode of care Patient was instructed and returned demonstration with 50% accuracy. Needed cues for performing the inhaled medication and will educate on any appropriate points to improve effectiveness of medication delivery. Written Krames handout on inhaler was provided to Patient. SN COPD: Assess Problem: Completed Administration of Inhaled SN COPD: Medications Decreased Description: Knowledge Nurse will observe of Oral patient performing the and inhaled medication and Inhaled will educate on any Medication appropriate points to s improve effectiveness of Goal: SN medication delivery. COPD: Patient/Ca regiver will demonstrat e ability to manage COPD medication s Patient was instructed and returned demonstration with 50% accuracy. Needed cues for appropriate points to improve effectiveness of medication delivery. SN COPD: Assess Nebulized Problem: Completed Med Set Up and SN COPD: Performance Decreased Description: Knowledge Nurse will observe the of Oral patient/caregiver setting and up the equipment and Inhaled medications and Medication performing the nebulizer. s Nurse will also educate Goal: SN on any appropriate points COPD: to improve effectiveness Patient/Ca of medication delivery. regiver will demonstrat e ability to manage COPD medication s Patient demonstrated an inefficient inhale and exhale with coughing; therefore instructed to appropriate points to improve effectiveness of medication delivery. to increase efficiency of cough. Returned demonstration with 50% accuracy. Needed cues fo inhale Written instructions for coughing techniques including Diaphragmatic Breathing (Romulo), Using Oxygen at Home (Romulo) and Using Oxygen Safely. was provided to and reviewed with Patient and Caregiver. SN COPD: Assess Ability Problem: Completed to Cough Effectively SN COPD: Description: Decreased Nurse will assess for Knowledge cough effectiveness and of intervene on inefficient Secretion inhale or exhale. Management Goal: SN COPD: Patient will demonstrat e secretion management Patient was educated on sputum color change, increased temperature, increased sputum production and who/when to report changes to agency/physician/911. SN COPD: Assess Knowledge Problem: Completed of Sputum Changes as a SN COPD: S/S of Decreased Infection/Exacerbation Knowledge Description: of Nurse will educate on Secretion recognizing sputum color Management change, increased Goal: SN temperature and increased COPD: sputum production, as Patient well as who/when to will report changes to demonstrat agency/physician/911. e secretion management Patient instructed to perform diaphragmatic breathing . Patient was able to perform 6 reps with no verbal cues while in static standing. Written instructions for breathing techniques including Diaphragmatic Breathing (Romulo), Using Oxygen at Home (Romulo) and Using Oxygen Safely. was provided to Patient. SN COPD: Educate on Problem: Completed Breathing Techniques SN COPD: Description: Shortness Nurse will educate on of Breath breathing techniques to Goal: SN assist with shortness of COPD: breath. Patient/Ca regiver will demonstrat e recongitio n and management of shortness of breath Patient was instructed and returned demonstration with 50% accuracy. Needed cues for 6. SN COPD: Educate on COPD Problem: Completed Action Plan SN COPD: Description: Shortness Nurse will educate on the of Breath COPD Action Plan to Goal: SN assist patient/caregiver COPD: with crisis situation Patient/Ca management. This includes regiver recognition of s/s of will exacerbation and when to demonstrat call physician, agency or e 911. recongitio n and management of shortness of breath Patient was instructed and returned demonstration with 50% accuracy. Needed cues for VRI scale to monitor shortness of breath. SN COPD: Educate on Problem: Completed Shortness of Breath SN COPD: Monitoring Shortness Description: of Breath Nurse will educate on the Goal: SN VRI scale to monitor COPD: shortness of breath. Patient/Ca regiver will demonstrat e recongitio n and management of shortness of breath Patient instructed in how stress impacts health and in methods to reduce stress and increase coping: Managing Stress when you have Diabetes (Romulo), How stress impacts health and Methods to reduce stress and increase coping. Patient response to teaching: teach back provided, but additional instruction needed. SN DM: Instruct Lifestyle Problem: Completed Changes with Diabetes SN DM: Coping Alteration from Lifestyle Changes Goal: SN DM: Patient/Ca regiver will demonstrat e ability to manage diabetes effects and recommende d lifestyle changes Patient instructed on blood sugar monitoring: Managing Your Diabetes (Romulo). Patient response to teaching: teach back provided, but additional instruction needed. SN DM: Instruct on Blood Problem: Completed Sugar Monitoring SN DM: Knowledge Deficit Related to Diabetes Goal: SN DM: Patient/Ca regiver will provide return demonstrat ion on use of glucometer Patient instructed on complications of diabetes mellitus: Credit Risk Analyst Complications of Diabetes (Krames) and Diabetes and Heart Disease (Krames). Patient response to teaching: teach back provided, but additional instruction needed. SN DM: Instruct Problem: Completed Patient/Caregiver on SN DM: Complications of Diabetes Knowledge Deficit Related to Diabetes Goal: SN DM: Patient/Ca regiver will provide teach back of complicati ons of DM SN assessed and instructed on disease process related to diabetes mellitus: Signs And Symptoms of Hypoglycemia (Krames) and Signs And Symptoms of Hyperglycemia (Krames). Patient response to teaching: teach back provided, but additional instruction needed. SN DM: Instruct Diabetes Problem: Completed Disease Process SN DM: Knowledge Deficit Related to Diabetes Goal: SN DM: Patient/Ca regiver will provide teach back on disease process of DM and exacerbati on Patient instructed in: Understanding Urinary Tract Infections (Romulo), How to recognize signs and symptoms of [...] care SN assessed and instructed patient/caregiver on modify environment and timed voiding. Patient/Caregiver response to teaching: teach back provided, [...] Goal: Directive yes Shared: Durable Power of Commercial Sales Manager Advance (DPOA), Health Care Power directives of Commercial Sales Manager (HCPOA) and obtained, Living Will or if not, Copy Obtained: yes requested Location of original 3 times by document: on file agency Shared: HH Notify Problem: Completed Physician if Patient is Shared: Outside of Established Agency Agency Parameters Parameters Description: Goal: HH clinician to notify Shared: physician if patient is to notify symptomatic or outside of physician agency parameters of if patient Blood glucose less than is 60 or greater than 250, symptomati Oral temperature greater c or than 100.4 F, Pulse less outside of than 50 or greater than establishe 120 BPM, Respirations d agency less than 8 or greater or than 28/min, Systolic BP physician less than 90 or greater parameters than 180, Diastolic BP less than 40 or greater than 100, Pulse oximetry less than 90, Pain score greater than 6/10, unrelieved by meds or alternative measures. Shared: May Use Problem: Completed Telemonitoring as Shared: Indicated Agency Parameters Goal: Shared: HH to notify physician if patient is symptomati c or outside of establishe d agency or physician parameters Patient instructed in diabetic foot care of: [...] teach back diabetic foot care Reviewed/instructed on insulin glargine (LANTUS U-100 INSULIN) 100 unit/mL injection ADMINISTER 20 UNITS UNDER THE SKIN EVERY NIGHT. E11.9 . Shared: Medication Problem: Completed Regimen Review Including Shared: Name, Dose, Frequency, Medication and Route Management Description: Goal: Assess/review medications Shared: for adherence, new Patient/Ca orders, errors, regiver questions/concerns, will presence in the home. verbalize understand ing of medication regimen and demonstrat e ability to safely manage meds by the end of the episode of care Provide detailed medication instruction on all medication including prescription, OTC, vitamins, supplements, and herbs. Patient instructed in the purpose, side effects, and dosage of the following medication(s) insulin glargine (LANTUS U-100 INSULIN) 100 unit/mL injection ADMINISTER 20 UNITS UNDER THE SKIN EVERY NIGHT. E11.9 . Medication education tool used was Gold Standard. Patient response to instruction: teach back provided, but additional instruction needed. Shared: Education on All Problem: Completed Home Medications, Shared: Including Prescriptions Medication Management Goal: Shared: Patient/Ca regiver will verbalize understand ing of medication regimen and demonstrat e ability to safely manage meds by the end of the episode of care Assessed patient's pain. Patient instructed in pain management techniques, including: medication monitoring, relaxation techniques, positioning, distraction techniques, home modification/adaptation and activity modifications. Patient response to teaching: [...] demonstrates progress towards the stated goals by Patient stated goals: increase strength, managing symptoms at home, be treated at home, walk without getting short of breath, go to [facility], visit family, cook own meals and bathe and dress without assistance. Shared: Patient Goals Problem: Completed Description: Shared: Patient stated goals: Patient increase strength, Strength, managing symptoms at Goals and home, be treated at home, Care walk without getting Preference short of breath, go to [facility], visit family, Goal: cook own meals and bathe Shared: and dress without Patient/Ca assistance. regiver will progress towards goals and achieve them Shared: Patient Care Problem: Completed Preferences Shared: Description: Patient Patient stated care Strength, preferences: explain Goals and medical forms and explain Care directions for new Preference medications. s Goal: Shared: Patient/Ca regiver will progress towards goals and achieve them Shared: Patient Strengths Problem: Completed Description: Shared: Patient assessed/stated Patient strengths: optimistic, Strength, motivated and ready for Goals and change, sets and pursues Care goals, attempting to Preference realize potential, able s to manage surrounding Goal: demands and Shared: opportunities, exercises Patient/Ca self direction, has regiver interpersonal will relationships and progress support, aware of towards substance abuse issues, goals and knowledge of medications, achieve willing to follow them established treatment plan and good communication skills. Instructed patient/caregiver on discharge planning and services to be provided on the plan of care. Patient/Caregiver informed of ordered services with Nursing, Physical Therapy, Occupational Therapy and Medical Social Work. Patient to be seen at least 2 time(s) a week for at least 2 weeks. Patient/caregiver in agreement with plan of [...] communicat ed to patient/ca rgiver and physician Patient instructed on: environmental modifications for home safety, proper footwear, orthostatic precautions, need for caregiver assist/supervsion and emergency precautions. [...] device as needed documented in this encounter Home Health Visit - Actions and Narratives I agree with coding Your Diagnosis Codes have been entered. Please review for proper dx and sequencing. Enter Symptom Management Ratings for Di agnosis in M1021 / M1023. Review [place] for completeness. To acknowledge/agree to these changes, [...] to the Quality Partner with your concerns. documented in this encounter
--- OUTSIDE RECORDS SUMMARY | 2019-11-28 22:16 | XMS REPORT | Encounter Summary ---
Author Author [facility] Organization [facility] Address Unknown Phone Unavailable Care Team Providers Care Transportation Refrigeration Technician Name Role Phone Ebony Sharp MD PCP Encounter Details Care Team Description Date Type Department Rosy Herrmann, RN TELEPHONE ENCOUNTER 09/08/2019 Home Care Visit [facility] Home Care and [facility] [address] [facility] [address] [place] [address] Social History Date Tobacco Use [...] Description Date [place] [address] [place] [address] [phone] 02/29/2020 Office Visit Urology documented as of this encounter Visit Diagnoses Not on filedocumented in this encounter Additional Health Concerns Resolved Time Infection Noted Time 09/17/2019 8:17 AM TANK CAR CLEANER RSV 08/31/2019 6:35 PM TANK CAR CLEANER documented as of this encounter
--- OUTSIDE RECORDS SUMMARY | 2019-11-28 22:16 | XMS REPORT | Encounter Summary ---
Author Author [facility] Organization [facility] Address Unknown Phone Unavailable Care Team Providers Care Planogrammer Name Role Phone Ebony Sharp MD PCP Reason for Visit * HH Auth Cert Referred By Contact Referred To Contact Status Reason Specialty Diagnoses / Procedures Encounter Details Care Team Description Date Type Department Aury Louis RN SN MISSED VISIT DOCUMENTATION 09/18/2019 Home Care Visit [facility] Home Care and [facility] [address] [facility] [address] [place] [address] Social History Date Tobacco Use [...] as of this encounter Progress Notes * Aury Louis RN - 09/18/2019 4:30 PM PIPE RACKER Patient was admitted to the hospital yesterday with abdominal pain. She conseque ntly missed today's HH visit. Will be filling out transfer documentation. RACKER documented in this encounter Plan of Treatment Care Team Description Date [place] [address] [place] [address] [phone] 02/29/2020 Office Visit Urology documented as of this encounter Visit Diagnoses Not on filedocumented in this encounter Home Health Visit - Care Plan Visit Type - SN Missed Visit Documenta tion Discipline - Retirement Status Goals Interventions Problem Descriptio Start Date n Active 1 goal linked to scheduled/documented intervention 1 goal intervention scheduled/documented in this visit SN DM: Knowledge Deficit 09/09/2019 Related to Diabetes Disciplines: Retirement Active 1 goal linked to scheduled/documented intervention 1 goal intervention scheduled/documented in this visit SN : Knowledge Deficit 09/09/2019 Related to UTI Disciplines: Retirement Active 1 goal linked to scheduled/documented intervention 1 goal intervention scheduled/documented in this visit Shared: Advance 09/09/2019 Directives Disciplines: Retirement, SHARED Active 1 goal linked to scheduled/documented intervention 1 goal intervention scheduled/documented in this visit Shared: Diabetes: 09/09/2019 Knowledge Deficit Related to Diabetic Foot Care Disciplines: Retirement, Physical Therapy, Occupational Therapy, SHARED Active 1 goal linked to scheduled/documented intervention 1 goal intervention scheduled/documented in this visit Shared: Medication Management 09/09/2019 Management and Disciplines: Education Retirement, Physical of All Therapy, Occupational Home Therapy, SHARED Medication s Including Prescripti on and OTC. Active 1 goal linked to scheduled/documented intervention 1 goal intervention scheduled/documented in this visit Shared: Pain Management 09/09/2019 Disciplines: Retirement, Physical Therapy, Occupational Therapy, SHARED Active 1 goal linked to scheduled/documented intervention 1 goal intervention scheduled/documented in this visit Shared: Patient Strength, 09/09/2019 Goals and Care Preferences Disciplines: Retirement, Physical Therapy, Occupational Therapy, SHARED Goal Met? [...] Goal: Directive yes Shared: Durable Power of Senior Ui Software Engineer Advance (DPOA), Health Care Power directives of Senior Ui Software Engineer (HCPOA) and obtained, Living Will or if [...] Preference short of breath, go to s spiritism, visit family, Goal: cook own meals and bathe Shared: and dress without Patient/Ca assistance. regiver will progress towards goals and achieve them documented in this encounter
--- OUTSIDE RECORDS SUMMARY | 2019-11-28 22:17 | XMS REPORT | Encounter Summary ---
Author Author [facility] Organization [facility] Address Unknown Phone Unavailable Care Team Providers Care Link Trainer Mechanic Name Role Phone Ebony Sharp MD PCP Reason for Visit * Auth/Cert Referred By Contact Referred To Contact Status Reason Specialty Diagnoses / Procedures Diagnoses Kidney stone Pyelonephritis Sepsis, due to unspecified organism, unspecified whether acute organ dysfunction present (HCC) Encounter Details Care Team Description Date Type Department Ariel Hernandez MD [address] [place] [address] [phone] Estefany Rodriguez RN [facility] [address] [place], [place] [id number] 08/30/2019 Anesthesia [facility] [address] [place], [place] [id number] Anesthesia Record Responsible Anesthesiologist Anesthesia Start Time Anesthesi a Stop Time Procedure Name Ariel Hernandez MD 08/30/19 1524 08/30/19 1618 CYSTOSCOPY, LEFT RETROGRADE PYELOGRAM, AND LEFT URETERAL STENT INSERTION (Left Ureter) Date Time Event Comment 1499 Anesthesia 2020 Initial Contact 1503 1520 AN Equip Check 1524 An Start 1524 In room 1524 An Start Data 1526 Preoxygenated Prior to Induction 1529 Pt eval immediately prior to anesthesia 1530 An Induction 1531 An LMA 1531 Spontaneous respirations 1535 PreOp Abx complete 1536 Anesthesia Ready 1543 Time out complete 1546 Procedure start - Primary Case 1556 Quick Note Blood sugar 339 1601 Procedure stop - Primary case 1608 LMA Removed 1608 an stop data 1612 Out of Room 1617 Handoff I completed my SBAR handoff to the receiving nurse in the PACU/ICU/OB Patient and PACU/ICU/OB nurse identifie d Discussed patient medical history Discussed procedure Reviewed intraopera tive anesthetic management and issues/concerns Discussed expectation f or early post-procedure period Questions from PACU/ICU/OB team address ed 1618 An Stop Meds Name Total fentaNYL (SUBLIMAZE) injection 50 mcg/mL 50 mcg lidocaine 2% (PF) 20mg/mL 50 mg propofol 10mg/mL 140 mg ondansetron 2mg/mL 4 mg lactated ringers infusion 1,400 mL * Name Cell Saver Blood Intake O2 N2O Air EtSEVO EtISO EtDES EtN2O * No blood administrations on file. Removal Type Details Placement 08/31/19 2100 by Aye Roger RN Peripheral Date: 08/30/19; Time: 1211; Size 08/30 121 by Merrill Do IV (gauge): 22 G; Orientation: Right; Jaden mcguire RN Location: Forearm; Site Prep: Chlorhexidine; Local Anesthetic: None; Insertion Attempts: 1; Removal Date: 08/31/19; Removal Time: 2100 08/30/19 1608 by Thad Bruce RN [facility] Non-Surgic Date: 08/30/19; Time: 153; Placed By: 08/30/19 153 by Thad lyons [employer]; Device: LMA; Size: 4; Michael sarmiento RN [facility] Placement Verified By: Capnometry, Auscultation; Removal Date: 08/30/19; Removal Time: 1608 09/04/19 0800 by Malinda Rae RN Urethral 08/30/19; 1600; Non-latex; 16 Fr.; Per 08/30/19 1600 by Hermelinda Russo RN 09/03/19 1630 by Malinda Rae RN Peripheral Date: 08/30/19; Time: 1640; Size 08/30 1640 by Francoise Walsh IV (gauge): 20 G; Orientation: Right, Farheen zamudio RN Upper, Anterior; Location: Arm; Site Prep: Chlorhexidine; Local Anesthetic: Injectable; Insertion Attempts: 1; Inserted By: Dr Hernandez; Removal Date: 09/03/19; Removal Time: 1630 documented in this encounter Social History Date [...] Miscellaneous Notes * Anesthesia Postprocedure Evaluation - Ariel Hernandez MD - 08/30/2019 6:00 PM LEGAL DIRECTOR Anesthesia Post Evaluation Procedure(s):CYSTOSCOPY, WITH LEFT RETROGRADE PYELOGRAM AND LEFT URETERAL STENT INSERTION Surgeon: Janet Aragon MD Patient Evaluated in: PACU Patient Participation: complete - patient participated Level of Consciousness: awake and alert Pain scale: Adequate analgesia., with adequate pain management. Airway Patency: patent Respiratory Status: spontaneous ventilation Cardiovascular Status: hemodynamically stable Postoperative Hydration: euvolemic Postop Nausea/Vomiting: controlled Anesthetic Complications: No Appropriate for discharge from anesthesia care, no apparent anesthesia related c omplication 2nd IV placed in pacu with ultrasound. Right AC 20 G. Pt on BIPAP and going to [facility] for overnight obs. Tachycardic but BP stable. Awake and alert. ANE Post Eval Vitals Most Recent Value BP (!) 134/101 filed at 08/30/2019 1900 Pulse (!) 119 filed at 08/30/2019 1900 Temp 37.6 C (99.6 F) filed at 08/30/2019 1713 Resp 12 filed at 08/30/2019 1900 SpO2 98 % filed at 08/30/2019 1900 L DIRECTOR * Anesthesia Preprocedure Evaluation - Ariel Hernandez MD - 08/30/2019 3:01 PM LEGAL DIRECTOR Anesthesia Evaluation No history of anesthetic complications No history of tobacco use use. Airway Mallampati: II TM distance: >3 FB Neck ROM: full Dental - normal exam Pulmonary - normal exam (+) COPD, sleep apnea CPAP, Cardiovascular - normal exam (+) hypertension, hyperlipidemia, , Neuro/Psych (+) peripheral neuropathy, GI/Hepatic/Renal (+) chronic renal disease renal calculi Comments: NPO per guidelines Endo/Other (+) poorly controlled type 2 diabetes mellitus using insulin Abdominal (+) obese morbid obesity Obstetrics HEENT Musculoskeletal (+) chronic pain, Hematology/Oncology Anesthesia Plan ASA 3 - emergent Type: general () Plan to include: IV induction and supraglottic airway device Plan discussed with [facility]. Anesthetic plan and risks discussed with patient. Post-operative analgesia: intended admin of post-op opioid Recovery plan: PACU Risk factors for PONV: female and non smoker PONV Risk: moderate Plan for PONV Prophylaxis to include: ondansetron Notes urosepsis L DIRECTOR documented in this encounter Plan of Treatment Care Team Description Date [place] [address] [place] [id number] [phone] 02/29/2020 Office Visit Urology documented as of this encounter Visit Diagnoses Not on filedocumented in this encounter Administered Medications Action Date Dose Rate Site Medication Order MAR Action 08/30/2019 3:46 PM LEGAL DIRECTOR 25 mcg fentaNYL (SUBLIMAZE) injection Given Intravenous, As needed, Starting 08/30/19 at 1537, Anesthesia Intra-op 25 mcg Given 08/30/2019 3:37 PM LEGAL DIRECTOR 08/30/2019 3:51 PM LEGAL DIRECTOR lactated ringers infusion New Bag 50 mL/hr, Intravenous, Continuous, Starting 08/30/19 at 1506, For 48 hours, Pre-op New Bag 08/30/2019 3:24 PM LEGAL DIRECTOR 08/30/2019 3:30 PM LEGAL DIRECTOR 50 mg lidocaine (pf) (XYLOCAINE-MPF) 20 mg/mL Given (2 %) injection Intravenous, As needed, Starting 08/30/19 at 1530, Anesthesia Intra-op 08/30/2019 3:53 PM LEGAL DIRECTOR 4 mg ondansetron (ZOFRAN) injection Given Intravenous, As needed, Starting 08/30/19 at 1553, Anesthesia Intra-op 08/30/2019 3:30 PM LEGAL DIRECTOR 140 mg propofol (DIPRIVAN) injection Given Intravenous, As needed, Starting 08/30/19 at 1530, Anesthesia Intra-op documented in this encounter
--- OUTSIDE RECORDS SUMMARY | 2019-11-28 22:17 | XMS REPORT | Encounter Summary ---
Author Author [facility] Organization [facility] Address Unknown Phone Unavailable Care Team Providers Care Supervisor [facility] Name Role Phone Ebony Sharp MD PCP Reason for Referral * Home Health Care (Routine) Referred By Contact Referred To Contact Status Reason Specialty Diagnoses / Procedures Cecilia Israel DO [address] [place] [address] [facility] [address] [facility] [address] [place] [address] Authorized Specialty Services Home Health Diagnoses Required Services Pyelonephritis Severe sepsis (HCC) Reason for Visit * Reason Comments Hematemesis Patient complaints of dizzi ness and vomiting blood clots since 9pm last night. seen here yesterday for cough an d soa. Dizziness * Auth/Cert Referred By Contact Referred To Contact Status Reason Specialty Diagnoses / Procedures Diagnoses Kidney stone Pyelonephritis Sepsis, due to unspecified organism, unspecified whether acute organ dysfunction present (HCC) Encounter Details Care Team Description Date Type Department Dirk Valencia MD [address] [place], [place] [id number] Cecilia Israel DO [address] [place] [address] [phone] Chuckie Short MD [address] [place] [address] [phone] Kidney stone (Primary Dx); Pyelonephritis; Sepsis, due to unspecified organism, unspecified whether acute organ dysfunction present (HCC); Ureteral stone; Severe sepsis (HCC); Ureteral stone with hydronephrosis; Acute kidney injury (HCC); left Ureteral stone with hydronephrosis; Severe sepsis (HCC)/ pyelonephritis 08/30/2019 [facility] 09/07/2019 [address] [facility] [place] [address] Social History Date Tobacco Use Types Packs/Day [...] Signs Reading Time Taken Comments Vital Sign 135/92 09/07/2019 12:11 PM AUTO WASHER Blood Pressure 79 09/07/2019 1:25 PM AUTO WASHER Pulse 36.7 C (98.1 F) 09/07/2019 12:11 PM AUTO WASHER Temperature 14 09/07/2019 1:25 PM AUTO WASHER Respiratory Rate 98% 09/07/2019 1:25 PM AUTO WASHER Oxygen Saturation - - Inhaled Oxygen Concentration 101 kg (222 lb 10.6 oz) 09/07/2019 6:04 AM AUTO WASHER Weight 152.4 cm (5') 08/30/2019 5:56 PM AUTO WASHER Height 43.49 08/30/2019 5:56 PM AUTO WASHER Body Mass Index documented in this encounter Discharge Summaries * Cecilia Israel DO - 09/07/2019 10:48 AM [facility] Summary Patient Name: Isiah Do [facility] Account No: [id number] Date of : 1950 Date of Admission: 08/30/2019 11:18 AM Date of Discharge: 09/07/2019 3:45 PM Length of Stay: 8 Days Readmit Risk: 24 Primary Care Physician: Ebony Sharp MD; Reason for Hospital Admission and Brief Hospital Course: Ms. Isiah Benítez is a 69 y.o. female who was admitted on 08/30/2019 with complaint of Hematemesis and Di zziness. Patient has history of COPD and hypertension as well as diabetes. She presented with dyspnea, cough, and dizziness. In the ER she was found to have UTI with a 5 mm proximal left ureteral stone and left-sided hydronephrosis. Uro logy was consulted and she was admitted to ICU postoperatively for BiPAP. She w as treated with IV steroids as well as antibiotics. Urine culture and blood cul ture were positive for Steven and therefore IV fluconazole was started. Repeat blood cultures were negative and she was transitioned to oral fluconazole to co mplete 14 days. Respiratory panel did return positive for RSV. She was tapered to oral steroids and will complete a slow taper at discharge. Her blood pressure was elevated and she was started on hydrochlorothiazide in ad dition to her normal home medication regimen. Urology performed a cystoscopy with stent placement. She will need to follow-up with them in 2 to 3 weeks for definitive stone management and stent removal. The patient was seen and examined by me on the day of her discharge. Her dischar ge plan was discussed fully with the patient and nursing staff. All questions we re answered. Disposition: Discharged in stable condition to home with home health. Problems Addressed During This Admission: Principal Problem: Severe sepsis (HCC)/ pyelonephritis Active Problems: COPD exacerbation (HCC)/ Acute on chronic hypoxemic respiratory failure Pyelonephritis left Ureteral stone with hydronephrosis Acute on chronic respiratory failure (HCC) Hematemesis Type 2 diabetes mellitus with hyperglycemia, with long-term current use of ins ulin (HCC) Acute vaginitis Severe obesity (BMI >= 40) (HCC) Hypertension Resolved Problems: Sinus tachycardia Code Status: Full Code Recommended Diet: Diet-Low Fat/Chol, 2gm Na, Consistent Carbohydrate Diet - Low Fat/Chol, 2gm Na (Simply Healthy) Activity/Restrictions: activity as tolerated Scheduled Follow Up Appointments/Studies [facility] Providers): Future Appointments Date Time Provider Department Center 09/09/2019 To Be Determined Karen Levin RN [facility] None 10/04/2019 1:[address] [place] 10/11/2019 1:30 PM Darin Huber MD [facility] Additional Discharge Follow Up: Dr. Ebony Sharp MD, primary care physician in 5-7 days. Additional Labs Appointments/Diagnostic Studies: Follow-up with urology for definitive stone management Allergies Allergen Reactions Lisinopril Anaphylaxis Metformin Anaphylaxis Angioedema Sulfa (Sulfonamide Antibiotics) Hives and Itching Latex, Natural Rubber Hives Reaction from oxygen nasal cannula Discharge Medications New Medications Indication(s) fluconazole 200 MG tablet Commonly known as: DIFLUCAN 200 mg, Oral, Daily hydroCHLOROthiazide 25 MG tablet Commonly known as: HYDRODIURIL 25 mg, Oral, Daily lactobacillus 10 billion cell capsule Commonly known as: CULTURELLE 2 capsules, Oral, Daily oxyCODONE-acetaminophen 5-325 mg per tablet Commonly known as: PERCOCET 1 tablet, Oral, Every 4 hours PRN Modified Medications Indication(s) atorvastatin 40 MG tablet Commonly known as: LIPITOR 40 mg, Oral, Daily What changed: when to take this ipratropium-albuterol 0.5-3 mg/3 mL nebulizer Commonly known as: DUO-NEB 3 mL, Inhalation, 4 times daily What changed: when to take this reasons to take this predniSONE 10 MG tablet Commonly known as: DELTASONE 2 tabs PO daily x 4 days, 1 tab PO daily x 4 days What changed: medication strength how much to take how to take this when to take this additional instructions Indication: cardiac transplant rejection prevention Medications To Continue Indication(s) albuterol 90 mcg/actuation [...] 2 CAPSULES BY MOUTH THREE TIMES DAILY [id number](VIT A,C-BIOTIN) ORAL Oral, Daily insulin glargine 100 unit/mL injection Commonly known as: Lantus U-100 Insulin ADMINISTER 20 UNITS UNDER THE SKIN EVERY NIGHT. E11.9 * insulin syringe 0.3 mL 31 gauge x 5/16" Commonly known as: BD ULTRA-FINE Subcutaneous, Daily, use as directed * insulin syringe 0.3 mL 31 gauge x 5/16" USE DIRECTED metoprolol tartrate 100 MG tablet Commonly known as: LOPRESSOR TAKE 1 TABLET BY MOUTH TWICE DAILY OXYGEN THERAPY 2 L/min, As needed Notes to patient: Patient is currently on 4L NC phenazopyridine 200 MG tablet Commonly known as: PYRIDIUM 200 mg, Oral, 3 times daily PRN Indication: difficult or painful urination tolterodine 2 MG tablet Commonly known as: DETROL 2 mg, Oral, 2 times daily * There are duplicate medications prescribed to the patient Stopped Medications azithromycin 250 MG tablet Commonly known as: ZITHROMAX HYDROcodone-acetaminophen 5-325 mg per tablet Commonly known as: NORCO Vital Signs at the time of discharge: Blood Pressure: BP: (!) 135/92 Pulse: Pulse: 79 Temperature: Temp: 36.7 C (98.1 F) Respirations: Resp: 14 Admission Weight: Weight: 102 kg (224 lb 13.9 oz) O2 Saturation: SpO2: 98 % Discharge Weight: Weight: 101 kg (222 lb 10.6 oz) BMI: Body mass index is 43.49 kg/m. Physical Exam Gen: Awake and alert CV: RRR Pulm: CTAB Labs - Last 36 hours: Recent Results (from the past 36 hour(s)) GLUCOSE POC Collection Time: 09/07/19 6:03 AM Result Value Ref Range Glucose POC 182 (H) 70 - 100 mg/dL GLUCOSE POC Collection Time: 09/07/19 12:06 PM Result Value Ref Range Glucose POC 259 (H) 70 - 100 mg/dL Imaging during this encounter: Xr Chest Single View Frontal Result Date: 09/06/2019 1. Life-support devices as above. 2. Stable linear predominant perihilar and basilar opacities, likely subsegmental atelectasis. No focal consolidations. 3. Low lung volumes. ATTESTATION STATEMENT: The Staff Radiologist has personally reviewed the images and dictated, reviewed, or edited the final report. READING SITE: [facility] Cardiac Studies during this encounter: No results found. Additional Studies: None Procedures: Cystoscopy and left ureteral stent placement 40 minutes were spent in the discharge of this patient performing the physical e xam, writing the discharge orders, and reviewing the patient's discharge plan of care and follow up information as noted above as well as other information as d ocumented in this summary note. Cecilia Israel DO [facility] Medicine Division . WASHER documented in this encounter Discharge Instructions * Attachments The following attachments cannot be sent through Care Everywhere.* FLUCONAZOLE ORAL TABLET (JAPANESE) * Hydrochlorothiazide, HCTZ capsules or tablets (Cameroonian) * Lactobacillus Oral formulations (Cameroonian) * OXYCODONE HYDROCHLORIDE, ACETAMINOPHEN ORAL TABLET (JAPANESE) * PREDNISONE ORAL TABLET (JAPANESE) * Pyelonephritis, Discharge Instructions for (Cameroonian) * Urinary Tract Infections in Women (Cameroonian) * Infection, Respiratory Syncytial Virus (RSV) (Cameroonian) * KIDNEY STONE W/ COLIC (JAPANESE) * Stents, Ureteral (Cameroonian) documented in this encounter Medications at Time [...] (25 mg total) tablet by mouth daily. 08/26/2017 insulin syringe (BD Inject under 100 [...] times a day as needed for pain. 08/02/2019 tolterodine (DETROL) 2 MG Take 1 tablet 30 tablet 0 tablet (2 mg total) by mouth 2 (two) times a day. vit A/vit Take by mouth 0 C/biotin/zinc/copper daily. ([id number],VIT A,C-BIOTIN, ORAL) 09/07/2019 09/13/2019 fluconazole (DIFLUCAN) Take 1 tablet 6 tablet 0 200 MG tablet (200 mg total) by mouth daily. 08/25/2019 10/13/2019 BREO ELLIPTA 200-25 INHALE 1 [...] capsule CAPSULES BY MOUTH THREE TIMES DAILY 06/17/2019 09/23/2019 insulin glargine (LANTUS ADMINISTER 20 10 mL 5 U-100 INSULIN) 100 UNITS UNDER unit/mL injection THE SKIN EVERY NIGHT. E11.9 07/18/2019 10/30/2019 metoprolol tartrate TAKE 1 TABLET 180 tablet 0 (LOPRESSOR) 100 MG tablet BY MOUTH TWICE DAILY 09/07/2019 10/01/2019 oxyCODONE-acetaminophen Take 1 tablet 10 tablet 0 (PERCOCET) 5-325 mg per by mouth tablet every 4 (four) hours as needed. Max Daily Dose: 6 tablets 09/07/2019 09/23/2019 predniSONE (DELTASONE) 10 2 tabs PO 12 tablet 0 MG tabletIndications: daily x 4 prevention of cardiac days, 1 tab transplant rejection PO daily x 4 days documented as of this encounter Progress Notes * JhoantanSueCeciliaDO - 09/06/2019 5:22 PM AUTO WASHER [facility] Hospitalist - Progress Note Patient Name: Isiah Benítez Account No: [id number] Date of : 1950 Date of Admission: 08/30/2019 11:18 AM Subjective Follow up regarding resp failure Patient feels breathing is improving. Reports that she uses 2L at baseline. ROS No nausea Objective Vital Signs: Temp: 36.6 C (97.9 F) Pulse: 84 Resp: 16 BP: (!) 148/93 SpO2: 9 4 % Height: 152.4 cm (5') Weight: 101.8 kg (224 lb 6.9 oz) I/O last 24 Hours: In: 431.2 [P.O.:240; IV Piggyback:191.2] Out: 3100 [Urine:3100] Physical Exam Vitals signs reviewed. Constitutional: Comments: More tachypneic Cardiovascular: Rate and Rhythm: Normal rate and regular rhythm. Pulmonary: Breath sounds: Rales present. Neurological: Mental Status: She is alert. I have personally reviewed the patient's vital signs, laboratory/pathology/cultu re results (as indicated), current inpatient medications, construction consultant notes and s upport staff notes with pertainent findings noted within the assessment/plan. Assessment/Plan Ms. Isiah Benítez is a 69 y.o. female who was admitted on 08/30/2019 with Hemateme sis and Dizziness. Problems addressed with today's visit include: * Severe sepsis (HCC)/ pyelonephritis Sepsis resolved, s/p stent placement, ballard left in place, improving. - Will need to follow up with urology in 2-3 weeks COPD exacerbation (HCC)/ Acute on chronic hypoxemic respiratory failure +RSV - Taper steroids q 3 days - Titrate off O2 as able Hematemesis Hb remains stable - Cont PPI Acute on chronic respiratory failure (HCC) - Due to COPD & RSV left Ureteral stone with hydronephrosis S/p left ureteral stent placement by Urology on 1/8/20. F/u for definitive treat ment Flomax, strain urine Hypertension - Add HCTZ Severe obesity (BMI >= 40) ([facility]) - Counseled on weight loss Acute vaginitis Fluconazole 150mg qOD X 3 days Type 2 diabetes mellitus with hyperglycemia, with long-term current use of insul in ([facility]) Resume home basal with level V SSI See my orders for additional details regarding this patients treatment plan. Room: [address] [place] [address] Diet: Diet-Low Fat/Chol, 2gm Na, Consistent Carbohydrate Code Status: Full Code VTE Prevention: Appropriate VTE orders and/or documentation has been completed for this patient. Ballard Catheter: N/A Scheduled Meds: amitriptyline 25 mg Oral Nightly atorvastatin 40 mg Oral Nightly cefTRIAXone 2 g Intravenous Daily citalopram 20 mg Oral Daily enoxaparin 40 mg Subcutaneous Q24H TUYET fluconazole 400 mg Intravenous Daily fluticasone furoate-vilanterol 1 puff Inhalation Daily gabapentin 600 mg Oral TID hydroCHLOROthiazide 25 mg Oral Daily hyoscyamine 0.125 mg Sublingual Q4H insulin glargine 25 Units Subcutaneous Nightly insulin lispro 3-18 Units Subcutaneous Q6H TUYET ipratropium-albuterol 3 mL Inhalation Q4H lactobacillus 2 capsule Oral Daily metoprolol tartrate 100 mg Oral BID pantoprazole 40 mg Intravenous BID predniSONE 30 mg Oral Daily tamsulosin 0.4 mg Oral Daily tolterodine 2 mg Oral BID Continuous Infusions: PRN Meds: acetaminophen OR acetaminophen, albuterol, alteplase, aluminum-magnesium hyd roxide-simethicone, benzocaine-menthol, benzonatate, bisacodyl, cloNIDine HCl, c yclobenzaprine, dextrose 50% OR dextrose 10%, docusate sodium, fentaNYL, glu cagon OR glucagon, glucose, guaiFENesin, magnesium sulfate, melatonin, micon azole nitrate, ondansetron, oxyCODONE-acetaminophen, phenazopyridine, polyethyle ne glycol, potassium chloride OR potassium bicarb-citric acid OR potassi um chloride in water, prochlorperazine OR prochlorperazine OR prochlorpe razine, sodium chloride Cecilia Israel, [facility] Medicine Division . WASHER * Arabella Irwin, ADAM ANP - 09/06/2019 9:25 AM AUTO WASHER [facility] Urology Progress Note Date: 09/06/2019 Subjective: Sitting in chair. Main concern is her hypertension. Continues to have intermittent left flank discomfort. She has remained afebrile. Good UOP. Chart reviewed and discussed with RN. Objective: Vitals: BP (!) 162/106 (BP Location: Right forearm) | Pulse 99 | Temp 36.4 C (97.6 F) (Oral) | Resp 16 | Ht 1.524 m (5') | Wt 101.8 kg (224 lb 6.9 oz) | SpO2 90% | BMI 43.83 kg/m Intake/Output Summary (Last 24 hours) at 09/06/2019 0925 Last data filed at 09/06/2019 0615 Gross per 24 hour Intake 1110.69 ml Output 2550 ml Net -1439.31 ml I/O last 24 Hours: In: 240 [P.O.:240] Out: 1750 [Urine:1750] Labs: Last 3 CBC Results (within last 7 days): Most Recent Result within the last 7 days Lab Units 09/06/1932709/05/19 0201 09/03/19 0447 WBC TH/uL 9.44 9.89 10.60 HEMOGLOBIN g/dL 11.8* 11.1* 11.0* HEMATOCRIT % 36 34* 34* PLATELET COUNT TH/uL 215 179 121* Last 3 BMP Results (within the last 7 days): Most Recent Result within the last 7 days Lab Units 09/06/1932709/05/19 0201 09/03/19 0447 SODIUM MEQ/L 137 139 141 POTASSIUM MEQ/L 3.7 3.7 3.8 CHLORIDE MEQ/L 93* 95* 103 CARBON DIOXIDE MEQ/L 40* 39* 35* BLOOD UREA NITROGEN mg/dL 21 21 17 CREATININE mg/dL 0.7 0.7 0.8 GLUCOSE mg/dL 111* 127* 90 CALCIUM mg/dL 9.1 8.8 8.2* DVT Prophylaxis: Yes Physical Exam: Gen: Alert and oriented x 3, NAD Lungs: non-labored Abdomen: Soft, Non-distended, mild generalized TTP, no CVA tenderness Assessment/Plan: Principal Problem: Severe sepsis ([facility])/ pyelonephritis Active Problems: Pyelonephritis left Ureteral stone with hydronephrosis COPD exacerbation ([facility])/ Acute on chronic hypoxemic respiratory failure Acute on chronic respiratory failure ([facility]) Type 2 diabetes mellitus with hyperglycemia, with long-term current use of ins ulin ([facility]) Hematemesis Acute vaginitis Severe obesity (BMI >= 40) ([facility]) Hypertension POD#7s/p cystoscopy andleft ureteral stent for5 mm left proximal ureteral calculus, bilateral hydronephrosis, acute renal failure, andurosepsis - Currently afebrile and stable. Urine and blood cultures growing Steven. Cur rently on Rocephin and Fluconazole. Repeat blood cultures are NGTD - Renal sono 08/31 confirmed resolution of bilateral hydronephrosis - Ballard catheter removed 09/04/19. Reports voiding without difficulty with good UOP - Left flank pain/bladder pressure likely from stent/Ballard. Continue supportiv e care. Currently on Detrol LA. Added SL Levsin every 4 hours and Pyridium 10 0 mg TID PRN. She can continue PRN narcotics but encouraged PO narcotics. Also instructed that narcotics will not target stent discomfort as well as Detrol LA /Levsin/Pyridium - Second staged left ureteroscopy/laser/stent exchange once she has fully recove red. Anticipate at least 2 weeks from placement of left ureteral stent. LAVINIA Huber within 1 week of discharge - Appreciate assistance from Hospitalist From standpoint, she is stable for discharge. We will sign off on care. Ple ase contact us with any questions/concerns. Arabella Irwin 09/06/2019 9:25 AM WASHER * Cecilia Israel, - 09/05/2019 4:37 PM AUTO WASHER [facility] Hospitalist - Progress Note Patient Name: Isiah Benítez Account No: [id number] Date of : 1950 Date of Admission: 08/30/2019 11:18 AM Subjective Follow up regarding resp failure, flank pain Patient alert. Feels worse today. Breathing a bit more difficulty. ROS No nausea Objective Vital Signs: Temp: 36.8 C (98.3 F) Pulse: 83 Resp: 15 BP: (!) 152/102 SpO2: 95 % Height: 152.4 cm (5') Weight: 101.9 kg (224 lb 10.4 oz) I/O last 24 Hours: In: 770.7 [P.O.:600; IV Piggyback:170.7] Out: 1700 [Urine:1700] Physical Exam Vitals signs reviewed. Constitutional: Comments: More tachypneic Cardiovascular: Rate and Rhythm: Normal rate and regular rhythm. Pulmonary: Breath sounds: Rales present. Neurological: Mental Status: She is alert. I have personally reviewed the patient's vital signs, laboratory/pathology/cultu re results (as indicated), current inpatient medications, construction consultant notes and s upport staff notes with pertainent findings noted within the assessment/plan. Assessment/Plan Ms. Isiah Benítez is a 69 y.o. female who was admitted on 08/30/2019 with Hemateme sis and Dizziness. Problems addressed with today's visit include: * Severe sepsis (HCC)/ pyelonephritis Sepsis resolved, s/p stent placement, ballard left in place, improving. - Will need to follow up with urology in 2-3 weeks COPD exacerbation (HCC)/ Acute on chronic hypoxemic respiratory failure +RSV - Taper steroids q 3 days - Titrate off O2 as able Hematemesis Hb remains stable - Cont PPI Acute on chronic respiratory failure (HCC) - Due to COPD & RSV left Ureteral stone with hydronephrosis S/p left ureteral stent placement by Urology on 08/30/19. F/u for definitive treat ment Flomax, strain urine Hypertension - Add HCTZ Severe obesity (BMI >= 40) ([facility]) - Counseled on weight loss Acute vaginitis Fluconazole 150mg qOD X 3 days Type 2 diabetes mellitus with hyperglycemia, with long-term current use of insul in (HCC) Resume home basal with level V SSI See my orders for additional details regarding this patients treatment plan. Room: [address] [place] [address] Diet: Diet-Low Fat/Chol, 2gm Na, Consistent Carbohydrate Code Status: Full Code VTE Prevention: Appropriate VTE orders and/or documentation has been completed for this patient. Ballard Catheter: N/A Scheduled Meds: amitriptyline 25 mg Oral Nightly atorvastatin 40 mg Oral Nightly cefTRIAXone 2 g Intravenous Daily citalopram 20 mg Oral Daily enoxaparin 40 mg Subcutaneous Q24H TUYET [START ON 09/06/2019] fluconazole 400 mg Intravenous Daily fluticasone furoate-vilanterol 1 puff Inhalation Daily gabapentin 600 mg Oral TID hydroCHLOROthiazide 25 mg Oral Daily insulin glargine 25 Units Subcutaneous Nightly insulin lispro 3-18 Units Subcutaneous Q6H TUYET ipratropium-albuterol 3 mL Inhalation 4x daily lactobacillus 2 capsule Oral Daily metoprolol tartrate 100 mg Oral BID pantoprazole 40 mg Intravenous BID predniSONE 30 mg Oral Daily tamsulosin 0.4 mg Oral Daily tolterodine 2 mg Oral BID Continuous Infusions: PRN Meds: acetaminophen OR acetaminophen, albuterol, alteplase, aluminum-magnesium hyd roxide-simethicone, benzocaine-menthol, benzonatate, bisacodyl, cloNIDine HCl, c yclobenzaprine, dextrose 50% OR dextrose 10%, docusate sodium, fentaNYL, glu cagon OR glucagon, glucose, guaiFENesin, magnesium sulfate, melatonin, micon azole nitrate, ondansetron, oxyCODONE-acetaminophen, polyethylene glycol, potass ium chloride OR potassium bicarb-citric acid OR potassium chloride in wa ter, prochlorperazine OR prochlorperazine OR prochlorperazine, sodium ch loride Cecliia Israel DO [facility] Medicine Division . WASHER * Arabella Irwin RN ANP - 09/05/2019 9:23 AM AUTO WASHER [facility] Urology Progress Note Date: 09/05/2019 Subjective: Resting in bed. Slowly feeling better. Appetite slightly improvin g. She does continue to have intermittent left flank pain which is somewhat imp roved with Percocet but would like to use IV pain medication at nighttime. She does not feel like she is going to be discharged "anytime soon." Has remained a febrile. Objective: Vitals: BP (!) 191/102 (Patient position: Supine) | Pulse 89 | Temp 36.4 C ( 97.6 F) (Oral) | Resp 23 | Ht 1.524 m (5') | Wt 101.9 kg (224 lb 10.4 oz) | SpO2 92% | BMI 43.87 kg/m Intake/Output Summary (Last 24 hours) at 09/05/2019 0924 Last data filed at 09/05/2019 0730 Gross per 24 hour Intake Output 1750 ml Net -1750 ml I/O last 24 Hours: In: - Out: 900 [Urine:900] Labs: Last 3 CBC Results (within last 7 days): Most Recent Result within the last 7 days Lab Units 09/05/1920009/03/1944609/02/19 0408 WBC TH/uL 9.89 10.60 9.49 HEMOGLOBIN g/dL 11.1* 11.0* 10.8* HEMATOCRIT % 34* 34* 33* PLATELET COUNT TH/uL 179 121* 132* Last 3 BMP Results (within the last 7 days): Most Recent Result within the last 7 days Lab Units 09/05/1920009/03/1944609/02/19 0408 SODIUM MEQ/L 139 141 142 POTASSIUM MEQ/L 3.7 3.8 4.0 CHLORIDE MEQ/L 95* 103 107 CARBON DIOXIDE MEQ/L 39* 35* 31 BLOOD UREA NITROGEN mg/dL 21 17 21 CREATININE mg/dL 0.7 0.8 1.0 GLUCOSE mg/dL 127* 90 134* CALCIUM mg/dL 8.8 8.2* 7.6* DVT Prophylaxis: Yes Physical Exam: Gen: Alert and oriented x 3, NAD Lungs: non-labored Abdomen: Soft, Non-distended, mild generalized TTP,mild left CVA tenderness Assessment/Plan: Principal Problem: Severe sepsis ([facility])/ pyelonephritis Active Problems: Pyelonephritis left Ureteral stone with hydronephrosis COPD exacerbation ([facility])/ Acute on chronic hypoxemic respiratory failure Acute on chronic respiratory failure ([facility]) Type 2 diabetes mellitus with hyperglycemia, with long-term current use of ins ulin ([facility]) Hematemesis Acute vaginitis Severe obesity (BMI >= 40) ([facility]) POD#6s/p cystoscopy andleft ureteral stent for5 mm left proximal ureteral calculus, bilateral hydronephrosis, acute renal failure, andurosepsis - Currently afebrile and stable. Urine and blood cultures growing Steven. Cur rently on Rocephin and Fluconazole - Renal sono 08/31 confirmed resolution of bilateral hydronephrosis - Ballard catheter removed 09/04/19. Reports voiding without difficulty. Noted to have large residual at time of cystoscopy. Unsure if PVR was checked. Will re order PVR to ensure <250 ml - Left flank pain/bladder pressure likely from stent/Ballard. Continue supportiv e care. Currently on Detrol LA and PRN narcotics. Okay to use IV narcotic for nighttime but did stress importance of PO narcotic use to ensure she is stable for discharge - Left URS as outpt once recovered - Appreciate assistance from Hospitalist Arabella Irwin 09/05/2019 9:24 AM WASHER * Arabella Irwin RN ANP - 09/04/2019 4:09 PM AUTO WASHER [facility] Urology Progress Note Date: 09/04/2019 Subjective: Doing ok today. Out of bed to chair. Ballard catheter removed. She has voided at least 4 times since removal. She also had several BMs. Intermit tent left abdominal pain. Has remained afebrile. Objective: Vitals: BP (!) 164/90 (Patient position: Sitting) | Pulse 78 | Temp 36.7 C ( 98 F) (Oral) | Resp 11 | Ht 1.524 m (5') | Wt 103.1 kg (227 lb 4.7 oz) | S pO2 95% | BMI 44.39 kg/m Intake/Output Summary (Last 24 hours) at 09/04/2019 1609 Last data filed at 09/04/2019 0916 Gross per 24 hour Intake 113.41 ml Output 3800 ml Net -3686.59 ml I/O last 24 Hours: In: 113.4 [IV Piggyback:113.4] Out: 2550 [Urine:2550] Labs: Last 3 CBC Results (within last 7 days): Most Recent Result within the last 7 days Lab Units 09/03/197 09/02/19 0408 08/31/19 1758 WBC TH/uL 10.60 9.49 7.94 HEMOGLOBIN g/dL 11.0* 10.8* 11.4* HEMATOCRIT % 34* 33* 36 PLATELET COUNT TH/uL 121* 132* 117* Last 3 BMP Results (within the last 7 days): Most Recent Result within the last 7 days Lab Units 09/03/197 09/02/19 0408 09/01/19 0150 SODIUM MEQ/L 141 142 137 POTASSIUM MEQ/L 3.8 4.0 4.1 CHLORIDE MEQ/L 103 107 104 CARBON DIOXIDE MEQ/L 35* 31 28 BLOOD UREA NITROGEN mg/dL 17 21 24 CREATININE mg/dL 0.8 1.0 1.1 GLUCOSE mg/dL 90 134* 295* CALCIUM mg/dL 8.2* 7.6* 7.1* DVT Prophylaxis: Yes Physical Exam: Gen: Alert and oriented x 3, NAD Lungs: non-labored Abdomen: Soft, Non-distended, mild generalized TTP Assessment/Plan: Principal Problem: Severe sepsis (HCC)/ pyelonephritis Active Problems: Pyelonephritis left Ureteral stone with hydronephrosis COPD exacerbation (HCC)/ Acute on chronic hypoxemic respiratory failure Acute on chronic respiratory failure (HCC) Type 2 diabetes mellitus with hyperglycemia, with long-term current use of ins ulin (HCC) Hematemesis Acute vaginitis Severe obesity (BMI >= 40) ([facility]) POD#5s/p cystoscopy andleft ureteral stent for5 mm left proximal ureteral calculus, bilateral hydronephrosis, acute renal failure, andurosepsis - Currently afebrile and stable. Urine and blood cultures growing Steven. Cur rently on Rocephin and Fluconazole - Renal sono 08/31 confirmed resolution of bilateral hydronephrosis - Ballard catheter removed. Reports voiding without difficulty. Will check PVR t o ensure <250 ml - Left flank pain/bladder pressure likely from stent/Ballard. Continue supportiv e care. Currently on Detrol LA and PRN Percocet/Fentanyl - Left URS as outpt once recovered - Appreciate assistance from Hospitalist Arabella Irwin 09/04/2019 4:09 PM WASHER * Cecilia Israel DO - 09/04/2019 2:33 PM AUTO WASHER [facility] Hospitalist - Progress Note Patient Name: Isiah Do Board Account No: [id number] Date of : 1950 Date of Admission: 08/30/2019 11:18 AM Subjective Follow up regarding resp failure, flank pain Patient alert in chair. She is feeling a bit better. Pain is bad after a cough ing fit. ROS No nausea Objective Vital Signs: Temp: 36.7 C (98 F) Pulse: 78 Resp: 11 BP: (!) 164/90 SpO2: 95 % Height: 152.4 cm (5') Weight: 103.1 kg (227 lb 4.7 oz) I/O last 24 Hours: In: 113.4 [IV Piggyback:113.4] Out: 2550 [Urine:2550] Physical Exam Vitals signs reviewed. Constitutional: Appearance: Normal appearance. Cardiovascular: Rate and Rhythm: Normal rate and regular rhythm. Pulmonary: Effort: Pulmonary effort is normal. Breath sounds: Wheezing present. Neurological: Mental Status: She is alert. I have personally reviewed the patient's vital signs, laboratory/pathology/cultu re results (as indicated), current inpatient medications, construction consultant notes and s upport staff notes with pertainent findings noted within the assessment/plan. Assessment/Plan MsDot Benítez is a 69 y.o. female who was admitted on 08/30/2019 with Hemateme sis and Dizziness. Problems addressed with today's visit include: * Severe sepsis ([facility])/ pyelonephritis Sepsis resolved, s/p stent placement, ballard left in place, improving. - Will need to follow up with urology in 2-3 weeks COPD exacerbation ([facility])/ Acute on chronic hypoxemic respiratory failure +RSV - Taper steroids - Titrate off O2 as able Hematemesis Hb remains stable - Cont PPI Acute on chronic respiratory failure ([facility]) - Due to COPD & RSV left Ureteral stone with hydronephrosis S/p left ureteral stent placement by Urology on 08/30/19. F/u for definitive treat ment Flomax, strain urine Severe obesity (BMI >= 40) ([facility]) - Counseled on weight loss Acute vaginitis Fluconazole 150mg qOD X 3 days Type 2 diabetes mellitus with hyperglycemia, with long-term current use of insul in ([facility]) Resume home basal with level V SSI See my orders for additional details regarding this patients treatment plan. Room: [address] [place] [address] Diet: Diet-Low Fat/Chol, 2gm Na, Consistent Carbohydrate Code Status: Full Code VTE Prevention: Appropriate VTE orders and/or documentation has been completed for this patient. Ballard Catheter: N/A Scheduled Meds: amitriptyline 25 mg Oral Nightly atorvastatin 40 mg Oral Nightly cefTRIAXone 2 g Intravenous Daily citalopram 20 mg Oral Daily enoxaparin 40 mg Subcutaneous Q24H TUYET [START ON 09/06/2019] fluconazole 400 mg Intravenous Daily [START ON 09/05/2019] fluconazole 800 mg Intravenous Once fluticasone furoate-vilanterol 1 puff Inhalation Daily gabapentin 600 mg Oral TID insulin glargine 25 Units Subcutaneous Nightly insulin lispro 3-18 Units Subcutaneous Q6H TUYET ipratropium-albuterol 3 mL Inhalation 4x daily lactobacillus 2 capsule Oral Daily metoprolol tartrate 100 mg Oral BID pantoprazole 40 mg Intravenous BID [START ON 09/05/2019] predniSONE 30 mg Oral Daily tamsulosin 0.4 mg Oral Daily tolterodine 2 mg Oral BID Continuous Infusions: PRN Meds: acetaminophen OR acetaminophen, albuterol, alteplase, aluminum-magnesium hyd roxide-simethicone, benzocaine-menthol, benzonatate, bisacodyl, cloNIDine HCl, c yclobenzaprine, dextrose 50% OR dextrose 10%, docusate sodium, fentaNYL, glu cagon OR glucagon, glucose, guaiFENesin, magnesium sulfate, melatonin, micon azole nitrate, ondansetron, oxyCODONE-acetaminophen, polyethylene glycol, potass ium chloride OR potassium bicarb-citric acid OR potassium chloride in wa ter, prochlorperazine OR prochlorperazine OR prochlorperazine, sodium ch loride Cecilia Israel DO [facility] Medicine Division . WASHER * Chuckie Short MD - 09/03/2019 12:52 PM AUTO WASHER [facility] Hospitalist - Progress Note Patient Name: Isiah Do Board Account No: [id number] Date of : 1950 Date of Admission: 08/30/2019 11:18 AM Subjective Follow up acute resp failure, sepsis, obstructing ureteral stone. Patient doing a bit better. Breathing is slow to improve but improving. Less con gestion. ROS 4 point review of systems is negative except for that noted above. Objective Vital Signs: Temp: 36.6 C (97.8 F) Pulse: 86 Resp: 15 BP: (!) 184/115 SpO2: 99 % Height: 152.4 cm (5') Weight: 107.3 kg (236 lb 8.9 oz) I/O last 24 Hours: In: - Out: 3850 [Urine:3850] Physical Exam Gen: NAD, obese Neuro: Alert, oriented HEENT: MMM, PERRL Cardiac: RRR Pulm: diffuse exp wheeze bilat, mild. GI: soft, non tender Extremities/ Integument: normal, no edema, skin without lesions or rash Assessment/Plan Ms. Isiah Benítez is a 69 y.o. female who was admitted on 08/30/2019 with Hemateme sis and Dizziness. Problems addressed with today's visit include: * Severe sepsis (HCC)/ pyelonephritis Sepsis resolved, s/p stent placement, ballard left in place, improving. Discussed with urology, likely voiding trial in the next 1-2d. COPD exacerbation (HCC)/ Acute on chronic hypoxemic respiratory failure Improving symptoms. Weaned from daytime bipap. Resume steroids and nebs for now. + RSV. Tele status. Hematemesis Hb remains stable, resume bid ppi, make po if remains off bipap. left Ureteral stone with hydronephrosis S/p left ureteral stent placement by Urology on 08/30/19. F/u for definitive treat ment Flomax, strain urine Acute vaginitis Presume candidal. Fluconazole 150mg qOD X 3 doses ordered. Type 2 diabetes mellitus with hyperglycemia, with long-term current use of insul in ([facility]) Resume home basal with level V SSI See my orders for additional details regarding this patients treatment plan. Room: [address] [place] [address] Diet: Diet-Low Fat/Chol, 2gm Na, Consistent Carbohydrate Code Status: Full Code VTE Prevention: Appropriate VTE orders and/or documentation has been completed for this patient. Ballard Catheter: Ballard catheter is currently in place. See assessment/plan above for documentation regarding the appropriateness of its use. Scheduled Meds: amitriptyline 25 mg Oral Nightly atorvastatin 40 mg Oral Nightly cefTRIAXone 2 g Intravenous Daily citalopram 20 mg Oral Daily enoxaparin 40 mg Subcutaneous Q24H TUYET fluticasone furoate-vilanterol 1 puff Inhalation Daily gabapentin 600 mg Oral TID insulin glargine 25 Units Subcutaneous Nightly insulin lispro 3-18 Units Subcutaneous Q6H TUYET ipratropium-albuterol 3 mL Inhalation 4x daily lactobacillus 2 capsule Oral Daily metoprolol tartrate 100 mg Oral BID micafungin (MYCAMINE) IVPB in 100 mL 100 mg Intravenous Q24H TUYET pantoprazole 40 mg Intravenous BID predniSONE 40 mg Oral Daily tamsulosin 0.4 mg Oral Daily tolterodine 2 mg Oral BID Continuous Infusions: PRN Meds: acetaminophen OR acetaminophen, albuterol, alteplase, aluminum-magnesium hyd roxide-simethicone, benzocaine-menthol, benzonatate, bisacodyl, cyclobenzaprine, dextrose 50% OR dextrose 10%, docusate sodium, fentaNYL, glucagon OR gl ucagon, glucose, guaiFENesin, HYDROcodone-acetaminophen, magnesium sulfate, brian tonin, miconazole nitrate, ondansetron, polyethylene glycol, potassium chloride OR potassium bicarb-citric acid OR potassium chloride in water, prochlor perazine OR prochlorperazine OR prochlorperazine, sodium chloride Chuckie Short MD [facility] Medicine Division . [facility] decision making. WASHER * Judson Hernandez MD - 09/03/2019 10:09 AM AUTO WASHER [facility] Urology Progress Note Date: 09/03/2019 Subjective: Doing ok today. Out of bed to chair. Breathing a little easier. Reports intermittent flank/bladder pressure. Objective: Vitals: BP 138/76 | Pulse 99 | Temp 36.3 C (97.3 F) (Temporal) | Resp 13 | Ht 1.524 m (5') | Wt 107.3 kg (236 lb 8.9 oz) | SpO2 100% | BMI 46.20 kg/m Intake/Output Summary (Last 24 hours) at 09/03/2019 1009 Last data filed at 09/03/2019 0630 Gross per 24 hour Intake 618.92 ml Output 5000 ml Net -4381.08 ml I/O last 24 Hours: In: - Out: 3000 [Urine:3000] Labs: Last 3 CBC Results (within last 7 days): Most Recent Result within the last 7 days Lab Units 09/03/19 0447 09/02/19 0408 08/31/19 1758 WBC TH/uL 10.60 9.49 7.94 HEMOGLOBIN g/dL 11.0* 10.8* 11.4* HEMATOCRIT % 34* 33* 36 PLATELET COUNT TH/uL 121* 132* 117* Last 3 BMP Results (within the last 7 days): Most Recent Result within the last 7 days Lab Units 09/03/197 09/02/19 0408 09/01/19 0150 SODIUM MEQ/L 141 142 137 POTASSIUM MEQ/L 3.8 4.0 4.1 CHLORIDE MEQ/L 103 107 104 CARBON DIOXIDE MEQ/L 35* 31 28 BLOOD UREA NITROGEN mg/dL 17 21 24 CREATININE mg/dL 0.8 1.0 1.1 GLUCOSE mg/dL 90 134* 295* CALCIUM mg/dL 8.2* 7.6* 7.1* DVT Prophylaxis: Yes Physical Exam: Gen: Alert and oriented x 3, NAD Lungs: non-labored Abdomen: Soft, Non-distended, mild generalized TTP Ballard: Yes, to dependent drainage, urine clear Assessment/Plan: Principal Problem: Severe sepsis ([facility])/ pyelonephritis Active Problems: Pyelonephritis left Ureteral stone with hydronephrosis COPD exacerbation ([facility])/ Acute on chronic hypoxemic respiratory failure Acute on chronic respiratory failure ([facility]) Type 2 diabetes mellitus with hyperglycemia, with long-term current use of ins ulin ([facility]) Hematemesis Acute vaginitis Severe obesity (BMI >= 40) ([facility]) POD#4s/p cystoscopy andleft ureteral stent for5 mm left proximal ureteral calculus, bilateral hydronephrosis, acute renal failure, andurosepsis - Currently afebrile and stable. Urine and blood cultures growing Steven. Con tinue Rocephin and Micafungin. Awaiting final culture results. - Renal sono 08/31 confirmed resolution of bilateral hydronephrosis. Waitstaff remains normal at 0.8 today. Good UOP - Left flank pain/bladder pressure likely from stent/Ballard. Continue supportiv e care. Currently on Detrol LA and PRN [place]/Fentanyl. Will plan VT in AM sandy . - Left URS as outpt once recovered - Continue inpatient care - Appreciate assistance from Hospitalist and ICU physicians Judson Hernandez 09/03/2019 10:09 AM WASHER * Judson Hernandez MD - 09/02/2019 11:05 AM AUTO WASHER [facility] Urology Progress Note Date: 09/02/2019 Subjective: No acute events. Still has some bladder pressure, otherwise tolera ting stent/Ballard. Remains slightly dyspneic. Objective: Vitals: BP (!) 148/93 | Pulse (!) 103 | Temp 36.4 C (97.5 F) (Axillary) | Resp 17 | Ht 1.524 m (5') | Wt 107.2 kg (236 lb 5.3 oz) | SpO2 99% | BMI 46 .16 kg/m Intake/Output Summary (Last 24 hours) at 09/02/2019 1105 Last data filed at 09/02/2019 0814 Gross per 24 hour Intake 1353.83 ml Output 2650 ml Net -1296.17 ml I/O last 24 Hours: In: 693.8 [I.V.:693.8] Out: 1600 [Urine:1600] Labs: Last 3 CBC Results (within last 7 days): Most Recent Result within the last 7 days Lab Units 09/02/19 0408 08/31/19 1758 08/31/19 0500 WBC TH/uL 9.49 7.94 9.01 HEMOGLOBIN g/dL 10.8* 11.4* 11.6* HEMATOCRIT % 33* 36 36 PLATELET COUNT TH/uL 132* 117* 113* Last 3 BMP Results (within the last 7 days): Most Recent Result within the last 7 days Lab Units 09/02/19 0408 09/01/19 0150 08/31/19 0500 SODIUM MEQ/L 142 137 138 POTASSIUM MEQ/L 4.0 4.1 4.4 CHLORIDE MEQ/L 107 104 105 CARBON DIOXIDE MEQ/L 31 28 28 BLOOD UREA NITROGEN mg/dL 21 24 28* CREATININE mg/dL 1.0 1.1 1.7* GLUCOSE mg/dL 134* 295* 239* CALCIUM mg/dL 7.6* 7.1* 7.0* DVT Prophylaxis: Yes Physical Exam: Gen: Alert and oriented x 3, NAD Lungs: non-labored Abdomen: Soft, Non-distended, mild LLQ/suprapubic tenderness to palpation Ballard: Yes, to dependent drainage, urine clear Assessment/Plan: Principal Problem: Severe sepsis ([facility])/ pyelonephritis Active Problems: Pyelonephritis left Ureteral stone with hydronephrosis COPD exacerbation ([facility])/ Acute on chronic hypoxemic respiratory failure Acute on chronic respiratory failure ([facility]) Type 2 diabetes mellitus with hyperglycemia, with long-term current use of ins ulin ([facility]) Hematemesis Acute vaginitis Severe obesity (BMI >= 40) ([facility]) POD#3 s/p cystoscopy and left ureteral stent for 5 mm left proximal ureteral rosalind culus, bilateral hydronephrosis, acute renal failure, and urosepsis - Currently afebrile and stable. Urine and blood cultures growing Steven. Con tinue Rocephin and Micafungin. Awaiting final culture results. - Renal sono 08/31 confirmed resolution of bilateral hydronephrosis. Waitstaff remains normal at 1.0 today. Good UOP -Left flank pain/bladder pressure likely from stent/Ballard. Continue supportive care. Currently on Detrol LA and PRN [place]/Fentanyl -Left URS as outpt once recovered - Continue inpatient care - Appreciate assistance from Hospitalist and ICU physicians Judson Hernandez 09/02/2019 11:05 AM WASHER * Chuckie Short MD - 09/02/2019 8:04 AM AUTO WASHER [facility] Hospitalist - Progress Note Patient Name: Isiah Do Board Account No: [id number] Date of : 1950 Date of Admission: 08/30/2019 11:18 AM Subjective Follow up acute resp failure, sepsis, obstructing ureteral stone. Pt still quite short of breath but not requiring bipap any longer. Maintaining s ats on minimal O2. ROS 4 point review of systems is negative except for that noted above. Objective Vital Signs: Temp: 36.4 C (97.5 F) Pulse: 101 Resp: 15 BP: (!) 137/94 SpO2: 95 % Height: 152.4 cm (5') Weight: 107.2 kg (236 lb 5.3 oz) I/O last 24 Hours: In: - Out: 1050 [Urine:1050] Physical Exam Gen: NAD, obese Neuro: Alert, oriented HEENT: MMM, PERRL Cardiac: RRR Pulm: diffuse exp wheeze bilat, mild. GI: soft, non tender Extremities/ Integument: normal, no edema, skin without lesions or rash Assessment/Plan Ms. Isiah Benítez is a 69 y.o. female who was admitted on 08/30/2019 with Hemateme sis and Dizziness. Problems addressed with today's visit include: * Severe sepsis (HCC)/ pyelonephritis Sepsis resolved, s/p stent placement, ballard left in place, improving. Improving renal function, d/c ballard when urology allows. COPD exacerbation ([facility])/ Acute on chronic hypoxemic respiratory failure Improving symptoms. Weaned from daytime bipap. Resume steroids and nebs for now. + RSV. Downgrade from ICU Hematemesis Hb remains stable, resume bid ppi, make po if remains off bipap. left Ureteral stone with hydronephrosis S/p left ureteral stent placement by Urology on 08/30/19. F/u for definitive treat ment Flomax, strain urine Acute vaginitis Presume candidal. Fluconazole 150mg qOD X 3 doses ordered. Type 2 diabetes mellitus with hyperglycemia, with long-term current use of insul in ([facility]) Resume home basal with level V SSI See my orders for additional details regarding this patients treatment plan. Room: [address] [place] [address] Diet: Diet-Low Fat/Chol, 2gm Na, Consistent Carbohydrate Code Status: Full Code VTE Prevention: Appropriate VTE orders and/or documentation has been completed for this patient. Ballard Catheter: Ballard catheter is currently in place. See assessment/plan above for documentation regarding the appropriateness of its use. Scheduled Meds: amitriptyline 25 mg Oral Nightly atorvastatin 40 mg Oral Nightly cefTRIAXone 2 g Intravenous Daily citalopram 20 mg Oral Daily enoxaparin 40 mg Subcutaneous Q24H TUYET fluticasone furoate-vilanterol 1 puff Inhalation Daily gabapentin 600 mg Oral TID insulin glargine 25 Units Subcutaneous Nightly insulin lispro 3-18 Units Subcutaneous Q6H TUYET ipratropium-albuterol 3 mL Inhalation 4x daily lactobacillus 2 capsule Oral Daily metoprolol tartrate 100 mg Oral BID micafungin (MYCAMINE) IVPB in 100 mL 100 mg Intravenous Q24H TUYET pantoprazole 40 mg Intravenous BID predniSONE 40 mg Oral Daily tamsulosin 0.4 mg Oral Daily tolterodine 2 mg Oral BID Continuous Infusions: PRN Meds: acetaminophen OR acetaminophen, albuterol, alteplase, aluminum-magnesium hyd roxide-simethicone, benzocaine-menthol, benzonatate, bisacodyl, cyclobenzaprine, dextrose 50% OR dextrose 10%, docusate sodium, fentaNYL, glucagon OR gl ucagon, glucose, guaiFENesin, HYDROcodone-acetaminophen, magnesium sulfate, brian tonin, miconazole nitrate, ondansetron, polyethylene glycol, potassium chloride OR potassium bicarb-citric acid OR potassium chloride in water, prochlor perazine OR prochlorperazine OR prochlorperazine, sodium chloride Chuckie Short MD [facility] Medicine Division . [facility] decision making. WASHER * Chuckie Short MD - 09/01/2019 11:10 AM AUTO WASHER [facility] Hospitalist - Progress Note Patient Name: Isiah Do Board Account No: [id number] Date of : 1950 Date of Admission: 08/30/2019 11:18 AM Subjective Follow up acute resp failure, sepsis, obstructing ureteral stone. Patient doing ok. She feels better from breathing standpoint weaned from bipap m ost of day thus far. ROS 4 point review of systems is negative except for that noted above. Objective Vital Signs: Temp: 37.3 C (99.1 F) Pulse: 87 Resp: 11 BP: (!) 157/89 SpO2: 9 1 % Height: 152.4 cm (5') Weight: 106.2 kg (234 lb 2.1 oz) I/O last 24 Hours: In: 806.6 [P.O.:180; I.V.:531.4; IV Piggyback:95.3] Out: 1080 [Urine:1080] Physical Exam Gen: NAD, obese Neuro: Alert, oriented HEENT: MMM, PERRL Cardiac: RRR Pulm: diffuse exp wheeze bilat, mild. GI: soft, non tender Extremities/ Integument: normal, no edema, skin without lesions or rash Assessment/Plan Ms. Isiah Benítez is a 69 y.o. female who was admitted on 08/30/2019 with Hemateme sis and Dizziness. Problems addressed with today's visit include: * Severe sepsis ([facility])/ pyelonephritis Ureteral obstructing stone, s/p cystoscopy, stent placement, ballard left in place , improving. Improving renal function COPD exacerbation (HCC)/ Acute on chronic hypoxemic respiratory failure Improving symptoms. Weaned from daytime bipap. Resume steroids and nebs for now. + RSV. Hematemesis Hb remains stable, resume bid ppi, make po if remains off bipap. left Ureteral stone with hydronephrosis S/p left ureteral stent placement by Urology on 08/30/19. F/u for definitive treat ment Flomax, strain urine Acute vaginitis Presume candidal. Fluconazole 150mg qOD X 3 doses ordered. Type 2 diabetes mellitus with hyperglycemia, with long-term current use of insul in ([facility]) Resume home basal with level V SSI See my orders for additional details regarding this patients treatment plan. Room: [address] [place] [address] Diet: Diet-Low Fat/Chol, 2gm Na, Consistent Carbohydrate Code Status: Full Code VTE Prevention: Appropriate VTE orders and/or documentation has been completed for this patient. Ballard Catheter: Ballard catheter is currently in place. See assessment/plan above for documentation regarding the appropriateness of its use. Scheduled Meds: amitriptyline 25 mg Oral Nightly atorvastatin 40 mg Oral Nightly cefTRIAXone 2 g Intravenous Daily citalopram 20 mg Oral Daily doxycycline 100 mg Oral BID with meals enoxaparin 40 mg Subcutaneous Q24H TUYET fluticasone furoate-vilanterol 1 puff Inhalation Daily gabapentin 600 mg Oral TID insulin glargine 25 Units Subcutaneous Nightly insulin lispro 3-18 Units Subcutaneous Q6H TUYET ipratropium-albuterol 3 mL Inhalation 4x daily lactobacillus 2 capsule Oral Daily metoprolol tartrate 100 mg Oral BID micafungin (MYCAMINE) IVPB in 100 mL 100 mg Intravenous Q24H TUYET pantoprazole 40 mg Intravenous BID predniSONE 40 mg Oral Daily tamsulosin 0.4 mg Oral Daily tolterodine 2 mg Oral BID Continuous Infusions: sodium chloride 0.9 % 50 mL/hr (09/01/19 0601) PRN Meds: acetaminophen OR acetaminophen, albuterol, alteplase, aluminum-magnesium hyd roxide-simethicone, benzocaine-menthol, benzonatate, bisacodyl, cyclobenzaprine, dextrose 50% OR dextrose 10%, docusate sodium, fentaNYL, glucagon OR gl ucagon, glucose, guaiFENesin, HYDROcodone-acetaminophen, magnesium sulfate, brian tonin, miconazole nitrate, ondansetron, polyethylene glycol, potassium chloride OR potassium bicarb-citric acid OR potassium chloride in water, prochlor perazine OR prochlorperazine OR prochlorperazine, sodium chloride Chuckie Short MD [facility] Medicine Division . High med decision making. WASHER * Arabella Irwin RN ANP - 09/01/2019 8:50 AM AUTO WASHER [facility] Urology Progress Note Subjective: Interval History: Main complaint is intermittent left flank pain and suprapubic pressure/discomfort. Fever curve vastly improved and last temperature was low grade at 99.1 degrees. Blood cultures are (+) for yeast. Pending UCX. REVIEW OF SYSTEMS: Constitutional: negative for fever and chills Respiratory: + for shortness of breath Cardiovascular: negative for chest pain Gastrointestinal: negative for nausea or vomiting. Objective: Vitals: BP (!) 177/106 | Pulse (!) 106 | Temp 37.3 C (99.1 F) (Oral) | Re sp 18 | Ht 1.524 m (5') | Wt 106.2 kg (234 lb 2.1 oz) | SpO2 93% | BMI 45.73 kg/m Intake/Output Summary (Last 24 hours) at 09/01/2019 0850 Last data filed at 09/01/2019 0824 Gross per 24 hour Intake 2017.41 ml Output 1980 ml Net 37.41 ml DVT Prophylaxis: Yes Labs: Last 3 CBC Results (within last 7 days): Most Recent Result within the last 7 days Lab Units 08/31/19 1758 08/31/19 0500 08/30/19 1213 WBC TH/uL 7.94 9.01 12.26* HEMOGLOBIN g/dL 11.4* 11.6* 15.1* HEMATOCRIT % 36 36 45 PLATELET COUNT TH/uL 117* 113* 161 Last 3 BMP Results (within the last 7 days): Most Recent Result within the last 7 days Lab Units 09/01/19 0150 08/31/19 0500 08/30/19 1648 08/30/19 1213 SODIUM MEQ/L 137 138 -- 137 POTASSIUM MEQ/L 4.1 4.4 -- 4.4 CHLORIDE MEQ/L 104 105 -- 97 CARBON DIOXIDE MEQ/L 28 28 -- 27 BLOOD UREA NITROGEN mg/dL 24 28* -- 26 CREATININE mg/dL 1.1 1.7* -- 1.2* GLUCOSE mg/dL 295* 239* 304* 439* CALCIUM mg/dL 7.1* 7.0* -- 9.2 Physical Exam: General appearance: alert and no distress Back: no tenderness to percussion or palpation Lungs: somewhat labored but able to converse easily, on nasal O2 Abdomen: Soft, Non-distended, non-tender Extremities: no edema, redness or tenderness in the calves or thighs Ballard: Yes, to dependent drainage, urine cloudy Assessment/Plan: Principal Problem: Severe sepsis (HCC)/ pyelonephritis Active Problems: Pyelonephritis left Ureteral stone with hydronephrosis COPD exacerbation ([facility])/ Acute on chronic hypoxemic respiratory failure Acute on chronic respiratory failure ([facility]) Type 2 diabetes mellitus with hyperglycemia, with long-term current use of ins ulin ([facility]) Hematemesis Acute vaginitis Severe obesity (BMI >= 40) ([facility]) LOS: 2 days POD#2 s/p cystoscopy and left ureteral stent for 5 mm left proximal ureteral rosalind culus, bilateral hydronephrosis, acute renal failure, and urosepsis - Renal U/S film and report reviewed. This confirmed resolution of bilateral hy dronephrosis. Waitstaff improved to 1.1 and good UOP -Continue abx. Currently on Rocephin and Micafungin. Await cx's -Left flank pain likely from stent. Continue supportive care. Currently on Det rol [place] and PRN [place]/Fentanyl -Left URS as outpt once recovered - Continue inpatient care - Appreciate assistance from Hospitalist and ICU physicians Electronically signed by Arabella Irwin 09/01/2019 8:50 AM WASHER Associated attestation - Judson Hernandez MD - 09/01/2019 10:15 PM AUTO WASHER I agree with Arabella Irwin NP's findings, assessment and plan as documented i n the note below. Judson Hernandez * Sharona English, JewellD - 08/31/2019 6:47 PM AUTO WASHER Provider Contacted: Chuckie Short Date of Contact: 08/31/19 Time of Contact: [phone] Results for orders placed or performed during the hospital encounter of 08/30/19 (from the past 168 hour(s)) Culture, Blood Result Value Gram Stain Yeast (A) Gram Stain gram stain read at date and time shown below: (A) Gram Stain 08/31/2019 16:55 (A) Blood Culture ID Panel by PCR Steven albicans (A) Culture, Blood Result Value Gram Stain Yeast (A) Gram Stain gram stain read at date and time shown below: (A) Gram Stain 08/31/2019 18:35 (A) Sharona English C Marleen Cleaning MD - 08/31/2019 6:39 PM AUTO WASHER Ms. Isiah Benítez is a 69 y.o. year-old female who presented on 08/30/2019 with Principal Problem: Severe sepsis (HCC)/ pyelonephritis Active Problems: Pyelonephritis left Ureteral stone with hydronephrosis COPD exacerbation (HCC)/ Acute on chronic hypoxemic respiratory failure Acute on chronic respiratory failure (HCC) Type 2 diabetes mellitus with hyperglycemia, with long-term current use of ins ulin (HCC) Hematemesis Acute vaginitis Severe obesity (BMI >= 40) ([facility]) eICU was called by RN regarding lab notifying them that patient is RSV +. Precau tions in place. Will continue monitoring while in the ICU. Marleen Snyder MD, 08/31/2019, 6:39 PM WASHER * Chuckie Short MD - 08/31/2019 2:37 PM AUTO WASHER [facility] Hospitalist - Progress Note Patient Name: Isiah Benítez Account No: [id number] Date of : 1950 Date of Admission: 08/30/2019 11:18 AM Subjective Follow up acute resp failure, sepsis, obstructing ureteral stone. Patient on bipap, still short of breath requiring bipap overnight. No fever. ROS 4 point review of systems is negative except for that noted above. Objective Vital Signs: Temp: 37.4 C (99.4 F) Pulse: 92 Resp: 13 BP: 123/87 SpO2: 94 % Height: 152.4 cm (5') Weight: 104.1 kg (229 lb 8 oz) I/O last 24 Hours: In: 3297.4 [P.O.:150; I.V.:1244.3; IV Piggyback:1903.2] Out: 745 [Urine:745] Physical Exam Gen: NAD, obese Neuro: Alert, oriented HEENT: MMM, PERRL Cardiac: RRR Pulm: diffuse exp wheeze bilat, on bipap GI: soft, non tender Extremities/ Integument: normal, no edema, skin without lesions or rash Assessment/Plan Ms. Isiah Benítez is a 69 y.o. female who was admitted on 08/30/2019 with Hemateme sis and Dizziness. Problems addressed with today's visit include: * Severe sepsis ([facility])/ pyelonephritis Likely ureteral obstructing stone, s/p cystoscopy, stent placement, ballard left i n place, improving. COPD exacerbation ([facility])/ Acute on chronic hypoxemic respiratory failure Exp wheeze, still requiring bipap on and off, check RVP, increase steroids to 40 mg daily, add scheduled nebs. resp precuations for now. To remain in ICU till no t dependent on bipap. Hematemesis IV PPI BID for now. Trend cbc. 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 F/u for definitive treat ment Flomax, strain urine Acute vaginitis Presume candidal. Fluconazole 150mg qOD X 3 doses ordered. Type 2 diabetes mellitus with hyperglycemia, with long-term current use of insul in ([facility]) Resume home basal with level V SSI See my orders for additional details regarding this patients treatment plan. Room: [address] [place] [address] Diet: Diet-Low Fat/Chol, 2gm Na, Consistent Carbohydrate Code Status: Full Code VTE Prevention: Appropriate VTE orders and/or documentation has been completed for this patient. Ballard Catheter: Ballard catheter is currently in place. See assessment/plan above for documentation regarding the appropriateness of its use. Scheduled Meds: amitriptyline 25 mg Oral Nightly atorvastatin 40 mg Oral Nightly cefTRIAXone 2 g Intravenous Daily citalopram 20 mg Oral Daily doxycycline 100 mg Oral BID with meals enoxaparin 40 mg Subcutaneous Q24H TUYET fluconazole 150 mg Oral Every Other Day fluticasone furoate-vilanterol 1 puff Inhalation Daily gabapentin 600 mg Oral TID insulin glargine 25 Units Subcutaneous Nightly insulin lispro 3-18 Units Subcutaneous Q6H TUYET ipratropium-albuterol 3 mL Inhalation 4x daily lactobacillus 2 capsule Oral Daily metoprolol tartrate 100 mg Oral BID pantoprazole 40 mg Intravenous BID predniSONE 40 mg Oral Daily tamsulosin 0.4 mg Oral Daily tolterodine 2 mg Oral BID Continuous Infusions: sodium chloride 0.9 % 125 mL/hr (08/31/19 1333) PRN Meds: acetaminophen OR acetaminophen, albuterol, aluminum-magnesium hydroxide-lindsay thicone, benzocaine-menthol, benzonatate, bisacodyl, cyclobenzaprine, dextrose 5 0% OR dextrose 10%, docusate sodium, fentaNYL, glucagon OR glucagon, glu cose, guaiFENesin, HYDROcodone-acetaminophen, magnesium sulfate, melatonin, sharonda nazole nitrate, ondansetron, polyethylene glycol, potassium chloride OR pota ssium bicarb-citric acid OR potassium chloride in water, prochlorperazine OR prochlorperazine OR prochlorperazine, sodium chloride Chuckie Short MD [facility] Medicine Division . High med decision making. WASHER * Janet Aragon MD - 08/31/2019 8:22 AM AUTO WASHER [facility] Urology Progress Note Subjective: Interval History: ICU overnight. Off Bipap since 0600. Not feeling great, c/o left flank pain likely from stent. UOP improved after bolus. No fever overnight. REVIEW OF SYSTEMS: Constitutional: negative for fever and chills Respiratory: + for shortness of breath Cardiovascular: negative for chest pain Gastrointestinal: negative for nausea or vomiting. Objective: Vitals: BP (!) 138/106 | Pulse (!) 114 | Temp 37.7 C (99.8 F) (Oral) | Re sp 11 | Ht 1.524 m (5') | Wt 104.1 kg (229 lb 8 oz) | SpO2 98% | BMI 44.82 k g/m Intake/Output Summary (Last 24 hours) at 08/31/2019 0822 Last data filed at 08/31/2019 0637 Gross per 24 hour Intake 6177.41 ml Output 596 ml Net 5581.41 ml DVT Prophylaxis: Yes Labs: Last 3 CBC Results (within last 7 days): Most Recent Result within the last 7 days Lab Units 08/31/19 0500 08/30/19 1213 08/28/19 1500 WBC TH/uL 9.01 12.26* 9.79 HEMOGLOBIN g/dL 11.6* 15.1* 14.3 HEMATOCRIT % 36 45 43 PLATELET COUNT TH/uL 113* 161 151 Last 3 BMP Results (within the last 7 days): Most Recent Result within the last 7 days Lab Units 08/31/19 0500 08/30/19 1648 08/30/19 1213 08/28/19 1500 SODIUM MEQ/L 138 -- 137 136 POTASSIUM MEQ/L 4.4 -- 4.4 4.1 CHLORIDE MEQ/L 105 -- 97 100 CARBON DIOXIDE MEQ/L 28 -- 27 29 BLOOD UREA NITROGEN mg/dL 28* -- 26 16 CREATININE mg/dL 1.7* -- 1.2* 1.0 GLUCOSE mg/dL 239* 304* 439* 260* CALCIUM mg/dL 7.0* -- 9.2 9.0 Physical Exam: General appearance: alert and no distress Back: no tenderness to percussion or palpation Lungs: somewhat labored but able to converse easily, on nasal O2 Abdomen: Soft, Non-distended, non-tender Extremities: no edema, redness or tenderness in the calves or thighs Ballard: Yes, to dependent drainage, urine cloudy Assessment/Plan: Principal Problem: Severe sepsis ([facility]) Active Problems: Pyelonephritis left Ureteral stone with hydronephrosis COPD (chronic obstructive pulmonary disease) ([facility]) Acute on chronic respiratory failure ([facility]) Type 2 diabetes mellitus with hyperglycemia, with long-term current use of ins ulin ([facility]) Hematemesis Acute vaginitis Sinus tachycardia Severe obesity (BMI >= 40) ([facility]) LOS: 1 day POD#1 s/p left ureteral stent for ureteral obstructing stone, urosepsis SHANNAN -I noted right hydro as well on admission CT (not read) but no stone - bladder w as very full at the time, suspect this was related to urinary retention. She had no right hydro on prior CT. Large residual present at time of cysto. -Cr up a bit today but did get contrast with admission CT. Anticipate this will improve over next few days. Will check renal US to ensure resolution of R hydro with ballard placement. -Continue abx, await cx's. Agree with yeast coverage given urine appearance and + yeast on admission UA -Left flank pain likely from stent -Left URS as outpt once recovered -OK to eat from my standpoint Electronically signed by Janet Aragon 08/31/2019 8:22 AM WASHER * Ciaran Newman MD - 08/31/2019 2:36 AM AUTO WASHER Ms. Isiah Benítez is a 69 y.o. year-old female who presented on 08/30/2019 with Principal Problem: Severe sepsis ([facility]) Active Problems: Pyelonephritis left Ureteral stone with hydronephrosis COPD (chronic obstructive pulmonary disease) ([facility]) Acute on chronic respiratory failure ([facility]) Type 2 diabetes mellitus with hyperglycemia, with long-term current use of ins ulin ([facility]) Hematemesis Acute vaginitis Sinus tachycardia 2 PM Nurse called regarding low urine output, 25 mL/h. Bladder scan empty. IV fluid at 125 mL/h. BP 135/100. Status post ureteral st enting, urosepsis. Creatinine 1.2. Fluid balance net +3.6 L. No history of CH F; LVEF 60%. During the day, albumin 4.5, hemoglobin 15. Morning chest film sh owed normal cardiac size, mild atelectasis. Normal saline 1 L bolus over 2 hours. Will continue monitoring while in the ICU. Ciaran Newman MD, 08/31/2019, 2:37 AM WASHER * Courtney Brown RT - 08/30/2019 6:31 PM AUTO WASHER [facility] Initial RATE Note 08/30/2019 6:32 PM A RATE assessment and treatement plan was performed on Isiah Benítez, : 08/14 The primary Pulmonary/Respiratory related diagnosis for assessment on this admis luanne is: COPD and Asthma History: The patient has a self-maintained airway. Home Therapy Review: The patient states the use of: short acting bronchodilators and steroids Home medication was not validated in the under Prior to Admission Medications ac tivity. Patient/Patient's family was not able to describe current use. The patient states she does not use oxygen at home. Oxygen devices used at home: none No data recorded No data recorded No data recorded [employer] company providing the home oxygen/equipment is: No data recorded The patient states she does not use assistive ventilatory support [facility]. Assistive ventilatory support devices include: No data recorded Settings are: No data recorded @[email or web address]([id number]])@ No data recorded No data recorded No data recorded [employer] company providing the home ventilator equipment is: No data recorded The patient states she does not use other home therapies: SASHA CPAP Previous Pulmonary Function or Spirometry testing: Patient has had testing. Social History Review: The patient reports that she quit smoking about 8 years ago. Her smoking use in cluded cigarettes. She started smoking about 29 years ago. She has a 6.60 pack-y ear smoking history. She has never used smokeless tobacco. Counseling given: Not Answered Comment: quit 7 years ago Physical Assessment: Pulse: (!) 122 Resp: 14 SpO2: 98 % O2 Flow Rate (L/min): 0 L/min FiO2 (%): 60 % No data recorded determined the patient does meet the necessary flow rate for th e (MDI, DPI) currently used at home. Suggested change: None Lung Assessment: Respiratory (WDL): X (*WDL=Within Defined Limits; X=Exceptions to WDL) Respiratory Pattern: Respiratory Pattern: Normal;Other (Comment) (BiPap) Chest Assessment: Chest Assessment: Chest expansion symmetrical Breath Sounds: Bilateral Breath Sounds: Diminished;Coarse Cough Effort: No data recorded Secretions: No data recorded, No data recorded, No data recorded The operating protocol was initiated based on the RATE Consult physician order. Based on the patient's history and current physical assessment, the patient izzy ts criteria for the following treatment plan(s): Treatment Plan The treatment plan identified for the patient is as follows: Medication Therapy Protocol: No data recorded No data recorded No data recorded Oxygen Therapy Protocol: No data recorded No data recorded No data recorded Home BiPAP/CPAP, Mechanical Ventilation Protocol: No data recorded No data recorded No data recorded Order/Plan Summary Nebs, MDI. BIPAP Based on the RATE Criteria being met, the following RATE Protocols will be used: RATE Adult Medication Therapy Medical Protocol RATE Adult Oxygen Therapy Medical Protocol RATE Home CPAP, BiPAP, Mechanical Ventilation Medical Protocol WASHER documented in this encounter H&P Notes * Jun Licona MD - 08/30/2019 5:38 PM AUTO WASHER [facility] Hospitalist - History & Physical Patient Name: Isiah Benítez Account No: [id number] Date of : 1950 Date of Admission: 08/30/2019 11:18 AM Primary Care Physician: Ebony Sharp MD; Subjective Chief Complaint: Hematemesis and Dizziness History of Present illness: Ms. Isiah Benítez is a 69 y.o. female who presented with above. PMH of COPD on 3L with exertion, SASHA On CPAP, T2DM on insulin. She has been feel ing sick with increased dyspnea and dry cough and was started on azithromycin an d prednisone for copd exacerbation. Yesterday she felt worse with fever, nausea , vomiting w hematemesis, uncontrolled heartburn. Has also had dysuria with supr apubic and left flank pain. Also feels like she has a bad yeast infection. She w as dizzy and fell yesterday. She also had diarrhea and had an accident. Presented to the ER> febrile to 39.1, tachycardic. UA absent bacteria with positive leuks. Urine and blood ctx sent off. CT abd and pelvis w contrast showed 5mm proximal left ureteral stone with mild left sided hydronephrosis. (also urethral diverticulum w 2 subcentimeter stones). Cr 1.2, glucose 439 on BMP with AG 14. WBC 12. Lactate 3.9. URology was consulted and took her to OR for left ureteral stent. Subsequently a dmitted to ICU, she is on bipap. ROS A 12-point review of systems was completed and was negative except as noted abov e. Past Medical History: Diagnosis Date Acute bleeding 08/08/2016 Allergic rhinitis Anxiety Bronchitis, chronic (HCC) Cataract 2011, 2013 bilat cateract surgery Chronic pain disorder back, ribs, and ankle. COPD (chronic obstructive pulmonary disease) ([facility]) Depression Draining postoperative wound 08/08/2016 Endometriosis Essential hypertension Fractures [address] in Left ankle MATA (generalized anxiety disorder) 09/24/2015 Hernia of abdominal cavity Kidney stone Mixed hyperlipidemia 09/24/2015 Morbid obesity due to excess calories ([facility]) 07/10/2016 On home oxygen therapy 2L - usually needs if has an exerbation of COPD, or resp illness SASHA on CPAP Osteoarthritis Refusal of blood transfusions as patient is Druze Sleep apnea CPAP use Type 2 diabetes mellitus with hyperglycemia, with long-term current use of i nsulin ([facility]) 06/29/2016 Urinary calculi Urinary incontinence [...] STENT PLACEMENT; Surgeon: Darin Huber MD; Location: [facility] Main OR; Service: Urology; Laterality: Left; CYSTOSCOPY, RETROGRADE PYELOGRAM, URETEROSCOPY, LASERLITHOTRIPSY, WITH URETE RAL STENT PLACEMENT Left 08/02/2019 Procedure: CYSTOSCOPY, LEFT RETROGRADE PYELOGRAM, LEFT URETEROSCOPY, LASER LITH OTRIPSY, LEFT URETERAL STENT EXCHANGE; Surgeon: Darin Huber MD; Location: [facility] Main OR; Service: Urology; Laterality: Left; HAND SURGERY Left 03/09/2019 [facility] HERNIA REPAIR HYSTERECTOMY OOPHORECTOMY REMOVAL, HARDWARE, FOOT OR ANKLE Left 04/09/2017 Procedure: LEFT ANKLE REMOVAL OF HARDWARE WITH REVISION LEFT ANKLE ARTHRODESIS; Surgeon: Adelaida Olivas MD; Location: [facility] Main OR; Service: Orthopedics; Later ality: Left; REPAIR, INCISIONAL HERNIA, LAPAROSCOPIC, USING MESH N/A 05/25/2018 Procedure: LAPAROSCOPIC INCISIONAL HERNIA REPAIR WITH MESH; Surgeon: Medardo Tate MD; Location: [facility] Main OR; Service: General; Laterality: [...] Last attempt to quit: 04/2011 Years since quittin.3 Smokeless tobacco: Never Used Tobacco comment: quit [...] differently: Take 40 mg by mouth nightly. azithromycin (ZITHROMAX) 250 MG tablet Take 1 tablet (250 mg total) by mouth jcarlos ly for 6 doses. 2 tablets PO now and then 1 tablet PO daily. BREO ELLIPTA 200-25 mcg/dose INHALER INHALE 1 PUFF BY MOUTH DAILY citalopram (CELEXA) 20 mg tablet Take 1 tablet (20 mg total) by mouth daily. cyclobenzaprine (FLEXERIL) 10 MG tablet Take 1 tablet (10 mg total) by mouth 3 ( three) times a day as needed for muscle spasms. gabapentin (NEURONTIN) 300 MG capsule TAKE 2 CAPSULES BY MOUTH THREE TIMES DAILY HYDROcodone-acetaminophen (NORCO) 5-325 mg per tablet Take 1 tablet by mouth tate ry 6 (six) hours as needed for pain. Max Daily Dose: 4 tablets insulin glargine (LANTUS U-100 INSULIN) 100 unit/mL injection ADMINISTER 20 UNIT S UNDER THE SKIN EVERY NIGHT. E11.9 insulin syringe ([employer]-FINE) 0.3 mL 31 gauge x 5/16 Inject under the skin jcarlos ly. use as directed insulin syringe 0.3 mL 31 gauge x 5/16 USE DIRECTED ipratropium-albuterol (DUO-NEB) 0.5-3 mg/3 mL nebulizer Inhale 3 mL 4 (four) joann es a day. Patient taking differently: Inhale 3 mL 4 (four) times a day as needed. metoprolol tartrate (LOPRESSOR) 100 MG tablet TAKE 1 TABLET BY MOUTH TWICE DAILY OXYGEN THERAPY 2 L/min as needed. phenazopyridine (PYRIDIUM) 200 MG tablet Take 1 tablet (200 mg total) by mouth 3 (three) times a day as needed for pain. predniSONE (DELTASONE) 20 MG tablet Take 2 tablets (40 mg total) by mouth daily. tolterodine (DETROL) 2 MG tablet Take 1 tablet (2 mg total) by mouth 2 (two) joann es a day. vit A/vit C/biotin/zinc/copper (KYSM-AIKB-HBHA,VIT A,C-BIOTIN, ORAL) Take by tanna th daily. Objective Triage Vital Signs: Temp: (!) 39.1 C (102.4 F) Pulse: (!) 157 Resp: 23 BP: ( !) 161/114 SpO2: 92 % Height: 152.4 cm (5') Weight: 102 kg (224 lb 13.9 oz) Physical Exam Vitals signs reviewed. Constitutional: Appearance: She is not toxic-appearing. HENT: Head: Normocephalic and atraumatic. Eyes: General: No scleral icterus. Neck: Comments: Thick neck Cardiovascular: Rate and Rhythm: Regular rhythm. Tachycardia present. Pulmonary: Effort: No respiratory distress. Breath sounds: No wheezing. Comments: Decreased breath sounds on bipap. Abdominal: Tenderness: There is no tenderness. There is no guarding or rebound. Genitourinary: Comments: Ballard w pink urine Musculoskeletal: General: No swelling. Skin: General: Skin is warm. Neurological: Mental Status: She is alert. Comments: Awake, answers questions, moves hands and feet Psychiatric: Mood and Affect: Mood normal. EKG my read sinus tachcyardia CXR my read no discrete infiltrate I have personally reviewed the patient's vital signs, laboratory/pathology/cultu re results (as indicated), current inpatient medications and legal support specialist notes with pertainent findings noted within the assessment/plan. I have personally re viewed and updated the patient's past medical history, past surgical history, fa carmelo history and social history as appropriate. Assessment/Plan Ms. Isiah Benítez is a 69 y.o. female who was admitted on 08/30/2019 with complain t of Hematemesis and Dizziness. * Severe sepsis ([facility]) Meets w HR, WBC, UTI, elevated lactate. Continue IVF, abx left Ureteral stone with hydronephrosis S/p left ureteral stent placement by Urology on 08/30/19. F/u for definitive treat ment Flomax, strain urine Pyelonephritis Continue abx w probiotics, ff urine and blood ctx Prior urine ctx-hx of oxacillin resistant staph epi, steven, e coli Hematemesis IV PPI BID for now. Trend cbc. 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 Wean back to baseline 3L NC and nighttime CPAP for sasha COPD (chronic obstructive pulmonary disease) ([facility]) Was getting rx for copd exacerbation--taper steroids, continue bronchodilators, supportive care Sinus tachycardia Fluid resuscitate, resume home bb, monitor Acute vaginitis Presume candidal. Fluconazole 150mg qOD X 3 doses ordered. Type 2 diabetes mellitus with hyperglycemia, with long-term current use of insul in ([facility]) Resume home basal with level V SSI In addition, see my orders for additional details regarding this patients treatm ent plan. Diet: Diet NPO Diet NPO VTE Prevention: Appropriate VTE orders and/or documentation has been completed for this patient. The patient does have an advanced directive. Code Status: Full Code Disp: Admit the patient as Inpatient to ICU with telemetry for treatment as note d above. Jun Licona MD [facility] Medicine Division . WASHER documented in this encounter Consult Notes * Delores Mckinley RN - 08/31/2019 5:30 PM AUTO WASHER Associated Order(s): CONSULT - VASCULAR ACCESS TEAM PICC Line Procedure Note Patient Name: Isiah Benítez Date of Procedure: 08/31/2019 Indication: Sepsis/Pyelonephritis Time-Out Process: Time out taken Consent: Informed verbal consent Description of Procedure: 5FrDL PICC line placed using ultrasound w/o difficulty Venous Site: Right Brachial Catheter inserted: Total catheter length 43cm Technique: Tip advanced to aCJ using 3CG. 3cm external CXR shows tip in the dSVC Line released to Letyt MEDINA for use Complications: Dressing oozing Delores Mckinley 08/31/2019 5:30 PM WASHER * Arabella Irwin, ADAM ANP - 08/30/2019 2:33 PM AUTO WASHER [facility] UROLOGY CONSULT NOTE Patient: Isiah Benítez Age: 69 y.o. : 1950 PRIMARY CARE PROVIDER: Ebony Sharp MD ATTENDING PHYSICIAN: Dirk Valencia MD CONSULTING PHYSICIAN: Arabella Irwin DATE OF CONSULTATION: 08/30/2019 2:33 PM REASON FOR CONSULTATION: Left proximal ureteral calculus; suspected left pyelone phritis with fever HISTORY OF PRESENT ILLNESS: Mrs. Benítez is a pleasant 69 year old female who presented to E on 08/30/2019 for evaluation of hematemesis and altered mental status. Labs rev iewed. WBC 12.26K. Waitstaff 1.2. Lactate 3.9. She had a fever of 102.4 degrees, i s tachycardic around 150s, and hypertensive. UA was (+) for >1000 glucose, 30 protein, and (+) leukocytes. CT ABD/pelvis with IV contrast film and report reviewed. This confirmed a 5 mm left proximal ureteral calculus with mild left hydronephrosis and possible 1-2 punctate non obstructing left renal calculi; 3.2 cm x 2.3 cm urethral diverticulum with 2 5 mm stones; and moderate bladder distention. She has been admitted for observation and Urology consulted for further management. She denies abdominal/flank/lower back pain, dysuria, or gross hematuria. She is an established patient of Dr. Huber. She had a 1.5 cm LLP non obstructing renal calculus and is s/p left ureteroscopy/laser/stent on 06/28/2019 and 08/02/2019. Her left ureteral stent was subsequently removed on 08/10/2019. Stone analysis: 85% calcium oxalate monohydrate, 10% calcium phosphate, 5% calcium oxalate di hydrate. REVIEW OF SYSTEMS: : see HPI Constitutional: + fever, chills and fatigue Head: No Headaches Eyes: No visual changes Ears: No changes in hearing Pulm: No shortness of breath CV: No chest pain or palpitations GI: + nausea, vomiting. No diarrhea Skin: No rashes Heme: No easy bruising Neuro: No numbness, tingling Musculoskeletal: + weakness MEDICAL HISTORY: Past Medical History: Diagnosis Date Acute bleeding 08/08/2016 Allergic rhinitis Anxiety Bronchitis, chronic ([facility]) Cataract 2011, 2012 bilat cateract surgery Chronic pain disorder back, ribs, and ankle. COPD (chronic obstructive pulmonary disease) ([facility]) Depression Draining postoperative wound 08/08/2016 Endometriosis Essential hypertension Fractures [address] in Left ankle MATA (generalized anxiety disorder) 09/24/2015 Hernia of abdominal cavity Kidney stone Mixed hyperlipidemia 09/24/2015 Morbid obesity due to excess calories ([facility]) 07/10/2016 On home oxygen therapy 2L - usually needs if has an exerbation of COPD, or resp illness SASHA on CPAP Osteoarthritis Refusal of blood transfusions as patient is Druze Sleep apnea CPAP use Type 2 diabetes mellitus with hyperglycemia, with long-term current use of i nsulin ([facility]) 06/29/2016 Urinary calculi Urinary incontinence [...] [facility] Main OR; Service: Urology; Laterality: Left; HAND SURGERY Left 03/09/2019 CTR [...] ARTHROPLASTY Right 2010 PRIOR TO ADMISSION MEDICATIONS: (Not in a hospital admission) MED LIST: Current Facility-Administered Medications Medication Dose Route Frequency Provider Last Rate Last Dose fentaNYL (SUBLIMAZE) injection 50 mcg 50 mcg Intravenous Once Dirk Valencia MD ketorolac (TORADOL) injection 15 mg 15 mg Intravenous Once Ever Beck pantoprazole (PROTONIX) injection 80 mg 80 mg Intravenous Once Dirk davila MD piperacillin-tazobactam (ZOSYN) 4.5 g in dextrose ADDV (D5W) 5 % 100 mL IVPB 4.5 g Intravenous Once Dirk Valencia MD sodium chloride 0.9% (NS) IV Bolus 1,000 mL Intravenous Once Dirk Valencia MD Current Outpatient Medications Medication Sig Dispense Refill [...] by mouth nightly. ) 90 tablet 1 azithromycin (ZITHROMAX) 250 MG tablet Take 1 tablet (250 mg total) by mouth daily for 6 doses. 2 tablets PO now and then 1 tablet PO daily. 6 tablet 0 BREO ELLIPTA 200-25 mcg/dose INHALER INHALE 1 [...] THREE TIMES D AILY 540 capsule 0 HYDROcodone-acetaminophen (NORCO) 5-325 mg per tablet Take 1 tablet by mouth every 6 (six) hours as needed for pain. Max Daily Dose: 4 tablets 20 tablet 0 insulin glargine (LANTUS U-100 INSULIN) 100 unit/mL injection ADMINISTER 20 UNITS UNDER THE SKIN EVERY NIGHT. E11.9 10 mL 5 insulin syringe (Cognitive Code ULTRA-FINE) 0.3 mL 31 gauge x 5/16 [...] for pain. 9 tablet 0 predniSONE (DELTASONE) 20 MG tablet Take 2 tablets (40 mg total) by mouth da edu. 10 tablet 0 tolterodine (DETROL) 2 MG tablet Take 1 tablet (2 mg total) by mouth 2 (two) times a day. 30 tablet 0 vit A/vit C/biotin/zinc/copper (BINQ-KMYA-FFVC,VIT A,C-BIOTIN, ORAL) Take by mouth daily. ALLERGIES: Lisinopril; Metformin; Sulfa (sulfonamide antibiotics); and [...] Last attempt to quit: 04/2011 Years since quittin.3 Smokeless tobacco: Never Used Tobacco comment: quit 7 years ago Substance and Sexual Activity Alcohol use: Yes Comment: rarely Drug use: No Sexual activity: Never Lifestyle Physical activity Days per week: Not on file Minutes per session: Not on file Stress: Not on file Relationships Social connections Talks on phone: Not on file Gets together: Not on file Attends mormon service: Not on file Active member of [...] Brother Stroke Brother Heart attack Brother Vitals: 08/30/19 1221 08/30/19 1418 BP: (!) 167/109 (!) 137/91 Pulse: (!) 151 (!) 137 Resp: 23 18 Temp: (!) 38.6 C (101.4 F) SpO2: 94% 96% Weight: Height: PHYSICAL EXAM: Gen: Well developed, well nourished, mild distress HEENT: Normocephalic, Atraumatic Eyes: PERRL, EOMI Lungs: non-labored, good effort CV: Palp pulse in all 4 extremities Abd: Soft, tenderness in LLQ, non-distended Back: No CVA tenderness on the RIGHT, + CVA tenderness on LEFT EXT: No redness, swelling, or calf tenderness Skin: Warm, dry and intact Neuro: CN II-XII grossly intact Labs: Last 3 CBC Results (within last 7 days): Most Recent Result within the last 7 days Lab Units 08/30/19 1213 08/28/19 1500 WBC TH/uL 12.26* 9.79 HEMOGLOBIN g/dL 15.1* 14.3 HEMATOCRIT % 45 43 PLATELET COUNT TH/uL 161 151 Last 3 BMP Results (within the last 7 days): Most Recent Result within the last 7 days Lab Units 08/30/19 1213 08/28/19 1500 SODIUM MEQ/L 137 136 POTASSIUM MEQ/L 4.4 4.1 CHLORIDE MEQ/L 97 100 CARBON DIOXIDE MEQ/L 27 29 BLOOD UREA NITROGEN mg/dL 26 16 CREATININE mg/dL 1.2* 1.0 GLUCOSE mg/dL 439* 260* CALCIUM mg/dL 9.2 9.0 UA: Appearance, Urine Date/Time Value Ref Range Status 08/30/2019 02:14 PM Yellow Final Glucose Urine Date/Time Value Ref Range Status 08/30/2019 02:14 PM >=1000 (A) Negative mg/dL Final Hemoglobin Urine Date/Time Value Ref Range Status 08/30/2019 02:14 PM Large (A) Negative Final Ketones Urine Date/Time Value Ref Range Status 08/30/2019 02:14 PM Negative Negative mg/dL Final PH Urine Date/Time Value Ref Range Status 08/30/2019 02:14 PM 5.0 5.0 - 8.0 Final Bilirubin Urine Date/Time Value Ref Range Status 08/30/2019 02:14 PM Negative Negative Final Leukocyte Esterase Date/Time Value Ref Range Status 08/30/2019 02:14 PM Positive (A) Negative Final Specific [place], UA Date/Time Value Ref Range Status 08/30/2019 02:14 PM >=1.030 1.001 - 1.030 Final Protein Urine Qual Date/Time Value Ref Range Status 08/30/2019 02:14 PM 30 (A) Negative mg/dL Final IMAGES: Ct Abdomen Pelvis W Contrast Result Date: 08/30/2019 1. 5 mm proximal left ureteral stone and mild left-sided hydronephrosis. No other nephroureterolithiasis is seen. 2. 3.2 x 2.3 cm urethral diverticulum with 2 subcentimeter stones. Moderate urinary bladder distention. 3. Hepatomegaly and hepatic steatosis. READING SITE: [facility] Xr Chest Single View Frontal Result Date: 08/30/2019 Mild bibasilar subsegmental atelectasis. No discrete focal consolidation. READING SITE: [facility] Xr Chest Single View Frontal Result Date: 08/28/2019 Stable bandlike opacity in the left midlung zone likely fibrosis/scarring. No discrete focal consolidation. READING SITE: [facility] ASSESSMENT/PLAN: 1. Left proximal ureteral calculus with left hydronephrosis - Options for management of obstructing ureteral stone with concern for infectio n were discussed in detail with the patient and family. They include percutaneo us nephrostomy tube vs cystoscopy with retrograde and ureteral stent. The risk s, benefits and complications of each were reviewed. Based on the patients symp toms, medical condition, lab and radiographic findings it was determined that c ystoscopy with ureteral stent would be their best option. The risks and complica tions include, but are not limited to: bleeding, infection, damage to surroundin g organs (urethra, bladder, ureter, development of ureteral stricture), inabilit y to place a stent requiring secondary procedures and stent irritation. The pat ient and family had a chance to ask questions which were answered to their satis faction and voiced clear understanding of the procedure. They elect to proceed with Cystoscopy, left retrograde pyelogram and ureteral stent with Dr. Margo arroyo 1499. - Will need second staged procedure in 2 weeks once infection is clear 2. Suspected left pyelonephritis with fever - She has been started on empiric IV Zosyn. Follow urine/blood cultures 3. Urethral diverticulum with noted stones - Will review films with Dr. Aragon. This was visualized on prior imaging but not noted at time of prior cystoscopies Thank you for allowing us to care for Mrs. Benítez. We will continue to follow kapil in-house. WASHER Associated attestation - Janet Aragon MD - 08/30/2019 3:29 PM AUTO WASHER Pt seen and films reviewed. Needs emergent left ureteral stent placed. Understan ds will need elective stone treatment at later date. Defer any management of ure thral diverticulum until recovered from this. ON my review of CT, has right hydr oureteronephrosis as well but no stone on this side. I think this is due to sign ificant bladder distention on CT. Will leave ballard postop. May need f/u renal US in couple days. Pt and family v/u and agree to proceed. documented in this encounter ED Notes * Dirk Valencia MD - 08/30/2019 12:21 PM AUTO WASHER Associated Order(s): Critical Care 08/30/2019 [facility] History Chief Complaint Patient presents with Hematemesis Patient complaints of dizziness and vomiting blood clots since 9pm last night. seen here yesterday for cough and soa. Dizziness Patient is a 69-year-old female who was seen in the emergency room yesterday bela gnosed with bronchitis. This morning she began vomiting blood. Her daughter sa ys that she seemed confused at home. She has a high fever. She was brought to the emergency room by EMS. Currently she is she is extremely dizzy. She is tac hycardic. She denies any chest pain. She denies any abdominal pain. Past Medical History: Diagnosis Date Acute bleeding 08/08/2016 Allergic rhinitis Anxiety Bronchitis, chronic ([facility]) Cataract 2011, 2012 bilat cateract surgery Chronic pain disorder back, ribs, and ankle. COPD (chronic obstructive pulmonary disease) ([facility]) Depression Draining postoperative wound 08/08/2016 Endometriosis Essential hypertension Fractures [address] in Left ankle MATA (generalized anxiety disorder) 09/24/2015 Hernia of abdominal cavity Kidney stone Mixed hyperlipidemia 09/24/2015 Morbid obesity due to excess calories ([facility]) 07/10/2016 On home oxygen therapy 2L - usually needs if has an exerbation of COPD, or resp illness SASHA on CPAP Osteoarthritis Refusal of blood transfusions as patient is Druze Sleep apnea CPAP use Type 2 diabetes mellitus with hyperglycemia, with long-term current use of i nsulin ([facility]) 06/29/2016 Urinary calculi Urinary incontinence [...] STENT EXCHANGE; Surgeon: Darin Huber MD; Location: [facility] Main OR; Service: Urology; Laterality: Left; HAND SURGERY Left 03/09/2019 CTR HERNIA REPAIR HYSTERECTOMY OOPHORECTOMY REMOVAL, HARDWARE, FOOT OR ANKLE Left 04/09/2017 Procedure: LEFT ANKLE REMOVAL OF HARDWARE WITH REVISION LEFT ANKLE ARTHRODESIS; Surgeon: Adelaida Olivas MD; Location: [facility] Main OR; Service: Orthopedics; Later ality: Left; REPAIR, INCISIONAL HERNIA, LAPAROSCOPIC, USING MESH N/A 05/25/2018 Procedure: LAPAROSCOPIC INCISIONAL HERNIA REPAIR WITH MESH; Surgeon: Medardo Tate MD; Location: [facility] Main OR; Service: General; Laterality: [...] Last attempt to quit: 04/2011 Years since quittin.3 Smokeless tobacco: Never Used Tobacco comment: quit 7 years ago Substance Use Topics Alcohol use: Yes Comment: rarely Drug use: No Review of Systems Constitutional: Negative. HENT: Negative. Eyes: Negative. Respiratory: Negative. Cardiovascular: Negative. Gastrointestinal: Negative. Endocrine: Negative. Genitourinary: Negative. Musculoskeletal: Negative. Skin: Negative. Neurological: Negative. All other systems reviewed and are negative. Physical Exam BP (!) 137/91 (BP Location: Left arm) | Pulse (!) 137 | Temp (!) 101.4 F (38 .6 C) (Oral) | Resp 18 | Ht 1.524 m (5') | Wt 102 kg (224 lb 13.9 oz) | Sp O2 96% | BMI 43.92 kg/m Physical Exam Constitutional: Appearance: She is ill-appearing. HENT: Head: Normocephalic and atraumatic. Nose: Nose normal. Mouth/Throat: Mouth: Mucous membranes are dry. Eyes: Extraocular Movements: Extraocular movements intact. Pupils: Pupils are equal, round, and reactive to light. Neck: Musculoskeletal: Normal range of motion. Cardiovascular: Rate and Rhythm: Regular rhythm. Tachycardia present. Pulses: Normal pulses. Heart sounds: Normal heart sounds. Pulmonary: Effort: Pulmonary effort is normal. Breath sounds: Normal breath sounds. Abdominal: General: Abdomen is flat. Tenderness: There is no tenderness. Musculoskeletal: Normal range of motion. General: No swelling. Skin: General: Skin is warm. Capillary Refill: Capillary refill takes less than 2 seconds. Neurological: General: No focal deficit present. Mental Status: She is alert and oriented to person, place, and time. Cranial Nerves: No cranial nerve deficit. Motor: No weakness. ED Course Critical Care Performed by: Dirk Valencia MD Authorized by: Dirk Valencia MD Total critical care time: 60 minutes Critical care time was exclusive of separately billable procedures and treating other patients. Critical care was necessary to treat or prevent imminent or life-threatening det erioration of the following conditions: sepsis. Critical care was time spent personally by me on the following activities: discu ssions with primary provider, discussions with consultants, examination of patie nt, obtaining history from patient or surrogate, ordering and performing treatme nts and interventions, ordering and review of laboratory studies, ordering and r eview of radiographic studies and re-evaluation of patient's condition. [facility] 12:22 PM-Patient presents tachycardic and febrile. She does seem somewhat confu sed. She is no focal deficits. EKG shows what looks like sinus tachycardia as they are both P and T waves present. Pulse was originally in the 160s and now d own to 150 range. Will give IV fluids and Tylenol and see if this improves rate . Will get full septic work-up. 2:52 PM- Patient heart rate and fever are improving. She is still tachycardic. CT scan shows a 5 mm proximal stone. UA shows infection. Blood cultures and u rine cultures were sent. Patient was started on dose of Zosyn. I think patient likely has an infected kidney stone. I do not see any other signs of infection. Chest x-ray stable. Flu negative. Tachycardia is improving to the 130 range. It is clearly sinus rhythm on monitor. It should improve once infection is t reated. Due to tachycardia will admit to ICU. Blood pressure has been stable. Discussed with urology who will take patient to the OR for stent placement. Brianna scussed with hospitalist who accepted to ICU. Pt can continue to get IVF in the OR and ICU. She is 102 kg so fluid resuscitation will likely need to be based on ideal weight and adjusted body weight is 68 kg. I have ordered 2 L of IVF in the ED. Results for orders placed or performed during the hospital encounter of 08/30/19 (from the past 24 hour(s)) Electrocardiogram (ECG) Result Value Ref Range QRSd 88 QT 276 QTC 435 ECGHR 149 ECGPR 124 CBC and Diff (manual diff if necessary) Result Value Ref Range WBC 12.26 (H) 4.00 - 11.00 TH/uL RBC 4.67 4.00 - 5.00 MIL/uL Hemoglobin 15.1 (H) 12.0 - 15.0 g/dL Hematocrit 45 36 - 45 % MCV 97 80 - 99 fL MCH 32 27 - 34 pg MCHC 33 32 - 36 % RDW 13.1 11.5 - 14.5 % Platelet Count 161 140 - 400 TH/uL MPV 10.8 9.4 - 12.3 fL Nucleated RBCs 0 0 - 0 /100 % Neutrophils 87 (H) 45 - 78 % %Lymphocytes 10 (L) 15 - 47 % %Monocytes 3 0 - 12 % %Eosinophils 0 0 - 7 % %Basophils 0 0 - 2 % # Granulocytes 10.67 (H) 1.7 - 6.8 TH/uL # Lymphocytes 1.23 1.0 - 3.3 TH/uL # Monocytes 0.37 0.2 - 0.9 TH/uL # Eosinophils 0.00 0.0 - 0.4 TH/uL # Basophils 0.05 0.0 - 0.1 TH/uL Left Shift Present (A) Absent RBC Morphology Normal Normal Comprehensive Metabolic Panel Result Value Ref Range Sodium 137 133 - 147 MEQ/L Potassium 4.4 3.5 - 5.3 MEQ/L Chloride 97 96 - 112 MEQ/L Carbon Dioxide 27 20 - 32 MEQ/L Anion Gap 14 5 - 17 Calcium 9.2 8.4 - 10.5 mg/dL Glucose 439 (H) 70 - 100 mg/dL Protein Total Serum 8.8 (H) 6.0 - 8.2 g/dL Albumin 4.5 3.5 - 5.0 g/dL Alkaline Phosphatase 124 42 - 140 IU/L Alanine Aminotransferase 33 0 - 34 IU/L Aspartate Aminotransferase 36 15 - 46 IU/L Bilirubin Total 0.5 0.2 - 1.3 mg/dL Blood Urea Nitrogen 26 7 - 26 mg/dL Creatinine 1.2 (H) 0.4 - 1.1 mg/dL eGFR Female AA 54 (L) 60 - 200 mL/min/1.73sq m eGFR Female Non-AA 45 (L) 60 - 200 mL/min/1.73sq m Lipase Result Value Ref Range Lipase 20 (L) 23 - 300 IU/L Lactate Venous WB Result Value Ref Range Lactate Venous 3.9 (H) 0.0 - 2.0 mmol/L Troponin Result Value Ref Range Troponin <0.01 0.00 - 0.03 ng/mL BNP Result Value Ref Range NTproBNP 340 pg/mL Fecal Occult Blood, diagnostic (non-neoplasm screening) Result Value Ref Range Fecal Occult Blood Negative Negative Sample 1 Collection Date 08/30/2019 Influenza PCR Result Value Ref Range Influenza A PCR Not Detected Not Detected Influenza B PCR Not Detected Not Detected Source Nasopharynx Urinalysis Reflex Result Value Ref Range Appearance, Urine Yellow Glucose Urine >=1000 (A) Negative mg/dL Bilirubin Urine Negative Negative Ketones Urine Negative Negative mg/dL Specific [place], UA >=1.030 1.001 - 1.030 Hemoglobin Urine Large (A) Negative PH Urine 5.0 5.0 - 8.0 Protein Urine Qual 30 (A) Negative mg/dL Urobilinogen Urine Negative Negative EU/dL Nitrite Urine Negative Negative Leukocyte Esterase Positive (A) Negative Urinalysis Microscopic Only Result Value Ref Range Microscopic RBC Urine 6 - 10 (A) 0 - 5 /hpf Microscopic WBC Urine >40 (A) 0 - 5 /hpf Epithelial Cells Absent Absent Hyaline Cast Large (A) Absent Bacteria Absent Absent WBC Clumps Present (A) Absent Yeast Present (A) Absent CT Abdomen Pelvis w contrast Final Result 1. 5 mm proximal left ureteral stone and mild left-sided hydronephrosis. No other nephroureterolithiasis is seen. 2. 3.2 x 2.3 cm urethral diverticulum with 2 subcentimeter stones. Moderate urinary bladder distention. 3. Hepatomegaly and hepatic steatosis. READING SITE: [facility] XR Chest single view frontal Final Result Mild bibasilar subsegmental atelectasis. No discrete focal consolidation. READING SITE: [facility] Retrograde Urography in OR (Results Pending) I interpreted the patients ECG as Sinus tach at 149 bpm with Normal QRS, normal intervals, normal S-T segments, no rmal T waves, normal axis and no ectopy ED Clinical Impression 1. Kidney stone 2. Pyelonephritis 3. Sepsis, due to unspecified organism, unspecified whether acute organ dysfunct ion present (HCC) Patient ED Dispo ED Disposition Admit Dirk Valencia MD 08/30/19 1503 WASHER * Cecilia Clifton RN - 08/30/2019 11:18 AM AUTO WASHER Bed: [facility] Expected date: Expected time: Means of arrival: Comments: amr WASHER documented in this encounter Miscellaneous Notes * Hospital Course - Cecilia Israel DO - 09/08/2019 4:03 PM AUTO WASHER Ms. Isiah Benítez is a 69 y.o. [...] culture and blood culture were positive for Steven and therefore IV fluconazo le was started. Repeat blood cultures were negative and she was transitioned to oral fluconazole to complete 14 days. Respiratory panel did return positive for RSV. She was tapered to oral steroids and will complete a slow taper at [facility] [place]. Her blood pressure was elevated and she was started on hydrochlorothiazide in ad dition to her normal home medication regimen. Urology performed a cystoscopy with stent placement. She will need to follow-up with them in 2 to 3 weeks for definitive stone management and stent removal. WASHER * Care Progression Final DC Note - Cathy Fuller RN - 09/07/2019 12:07 PM AUTO WASHER Final Discharge Note Final Discharge Disposition: 06-Home Under Care of Organized Home Health Service Organization Discharge goal and plan is mutually agreed upon by patient and care team. Patient will discharge to: home with daughter and [facility] Transportation: daughter Discharge Time: when ready Special Instructions: Met with pt and she has selected [facility]. Discharge packet faxed and confirmed with Aury in intake that they are able to a ccept pt for services. Cathy Fuller RN BSN [employer] [phone] WASHER * Therapy Note - Mirella Bautista OT - 09/07/2019 10:29 AM AUTO WASHER 09/07/19 1029 OT Visit Info Attempted but was unable to see patient (date) 09/07/19 Reason patient was not seen Pt refused OT reason not seen - extended comment She reports that she is tired and does not want to participate in therapy at this time. Will continue to follow. Thank you WASHER * End of Shift Note - Aline Rivas RN - 09/07/2019 4:46 AM AUTO WASHER End of Shift Summary and Plan of Care Pt AAO4. VSS w/ O2 supplementation. NC at 4-5 L. CPAP while sleeping. Intermitte nt complaints of pain. Fentanyl discouraged per day shift. Oxycodone administere d x2. Purewick in place. Total output this shift 400 mL. Fall Prevention Plan Fall prevention interventions and safe environment main tained, see the Daily Cares/Safety flowsheet for documentation. Goals/Plan for Shift Patient/Family stated goal for shift: Pain control, feel better, sleep Nursing goal for shift: Pain management; fall prevention; maintain O2 sat; promo te restful environment Plan: Assess and monitor for pain; fall risk protocol; titrate supplemental O2 a s needed; decrease stimuli, cluster care Goals/Plan for Hospital Stay Patient/Family stated goal for hospital stay: "get much better so I can go home" Nursing goal for hospital stay: improve urination, decrease pain Plan: utilize pharmacological measures as appropriate, monitor urine output WASHER * End of Shift Note - Estella Hameed RN - 09/06/2019 6:25 PM AUTO WASHER End of Shift Summary and Plan of Care Pt remains comfortable and compliant to care and interventions. Remins on 4ltr N C. Sat up in chair for approx 2hrs. SBA back to bed. Purewick remains in place w ith ample output. Complained of pain twice this shift, administered fentanyl onc e and Oxy once. Hospitalist met with pt and possible discharge tomorrow to home with HH. Urology signed off. Continue to monitor. Fall Prevention Plan Fall prevention interventions and safe environment main tained, see the Daily Cares/Safety flowsheet for documentation. Goals/Plan for Shift Patient/Family stated goal for shift: Pain control, feel better Nursing goal for shift: Pain management, fall prevention, Maintain O2 sat Plan: Assess and monitor for pain, fall risk protocol, Titrate supplemental O2 p er need Goals/Plan for Hospital Stay Patient/Family stated goal for hospital stay: "get much better so I can go home" Nursing goal for hospital stay: improve urination, decrease pain Plan: utilize pharmacological measures as appropriate, monitor urine output WASHER * Discharge Planning - Letty Bruce LMSW - 09/06/2019 3:31 PM AUTO WASHER Discharge Planning Interventions General Discharge Note Anticipated discharge disposition: Home with Home Health Additional discharge planning information: SW f/u w/pt for HH preference at this time. She reports that she wants to review the list w/her daughter and she will be here tonight. SW offered to call her daughter and she declined at this time. Care Progression will need to f/u for HH preference. Pt does have the HH list at this time already. Discharge Planning Participants: Patient Pt/Family Agreement w/ discharge plan: Yes Angela Bruce LMSW [phone] WASHER * Therapy Note - Ebony Sam, OT - 09/06/2019 12:18 PM AUTO WASHER 09/06/19 1218 OT Visit Info Initial OT Visit On 09/01/19 Assessed for Rehab Yes Past medical history reviewed through chart review: Yes Referral Reason "eval and treat" Medical Dx per Physician Sepsis, pyelonephritis, s/p ureteral stent placenta 04/11 Ordering practitioner Chuckie Short MD Comorbidities pertaining to therapy diagnosis Patient is a 69 y.o. female who pr esents severe sepsis, left ureteral stone with hydronephrosis and pyelonephritis . 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 Patient/Family Reports pt supine in bed upon OT arrival. pt agreeable to limited therapy at this time as she "didn't sleep at all" previous evening OT Received On 09/06/19 OT Visit # 5 Total Treatment Time (min) Start Time 1218 Stop Time 1227 Total Treatment time (min) 9 min Actual time (if diff than calculation) 19; 10 chart review, documentation, and R N consult, 9 ADL Precautions Weight Bearing Status Weight Bearing As Tolerated LLE;Weight Bearing As Tolerate d RLE Back Precautions No Fall Risk Yes Isolation Contact & Droplet: RSV Supplemental Oxygen Yes - 4L via NC Other Multiple lines, ballard Pain Assessment Pain Score 0 ADL Grooming Supervision/Setup Grooming Type of Task Washing, Rinsing and/or Drying the hand Upper Body Dressing Supervision/Setup Upper Body Dressing, Type of Clothing Pullover shirt Upper Body Dressing Type of Assistance Retrieved clothing Lower Body Dressing Minimal Assistance Lower Body Dressing, Type of Clothing Left sock;Right sock Lower Body Dressing Type of Assistance Steadying assistance ADL Comments demo's dressing activities in seated. extra time and min a for sadaf isra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 Yes Referral Reason "eval and treat" Medical Dx per Physician Sepsis, pyelonephritis, s/p ureteral stent placement 04/11 Ordering practitioner Chuckie Short MD Comorbidities pertaining to therapy diagnosis Patient is a 69 y.o. female who pr esents severe sepsis, left ureteral stone with hydronephrosis and pyelonephritis . 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 Patient/Family Reports She is up in chair upon arrival and agreeable to therapy at this time. Co-tx provided for increasing her safety during mobility and ADLs. OT Received On 09/04/19 OT Visit # 3 Total Treatment Time (min) Start Time 0938 Stop Time 0954 Total Treatment time (min) 16 min Actual time (if diff than calculation) 16 min ADL tx Precautions Total Hip Replacement No Precautions Weight Bearing Status Weight Bearing As Tolerated LLE;Weight Bearing As Tolerate d RLE Pain Assessment Pain Score 9 Pain Type Acute pain Pain Location Flank Pain Orientation Left ADL Grooming Supervision/Setup Upper Body Dressing Supervision/Setup ADL Comments She is able to perform grooming task and UB dressing task in standi ng today. She is able to ambulate around the room and performs standing activiti es throughout the room in prep for future ADLs. Cognition Overall Cognitive Status WFL Communication Communication Other Communication Comment No limitations noted. RUE Assessment RUE Assessment WFL LUE Assessment LUE Assessment WFL Bed Mobility Bed Mobility Comments Did not test today Transfers Assistive Device None Sit to Stand Transfers Min assist;Verbal cueing required Stand to Sit Transfers Min assist;Verbal cueing required Transfer Comments Patient is able to transfer on and off of recliner 2x today. S he is able to ambulate around the room and perform standing tasks in prep for fu ture ADLs, and mobility. Gait Gait Level Surface Assistance Minimal Assistive Device None Balance Sitting Static 3;(+) Sitting Dynamic 5 Standing Static 3;(+) Standing Dynamic 3;(+) Balance Activity Sitting Surface Other (comment) (chair ) Sitting Activity static;wt shift;ADL Sitting Time 6-10 min Sitting Assistance SBA;w/UE support Activity Tolerance Activity Tolerance fair;- Activity Tolerance Comments Limited by fatigue today. She reports fatigue with m inimal ambulation today. Patient Education Patient Education Educated on safety awareness, and energy conservation. Response to education verbalizes understanding;needs further review Other Patient is left sitting in chair at end of session with PT in room. All ne eds are within reach. Assessment Learning Barriers None Response to Treatment Tolerated well Response to Treat Comments Motivated and participatory in all therapy today Assistance Needed Occasional verbal cues (10-25%);Frequent tactile cues (26-50%) Problem List Decreased ADL participation;Decreased safety;Decreased strength;Dec reased functional mobility;Decreased activity tolerance;Decreased IADL participa tion Timeframe Timeframe STG 3 visits Timeframe LTG 5 visits Grooming Goals Grooming STG Goal Status Goal continues Grooming STG Setup/Supervision;Standing Grooming LTG Goal Status Goal continues Grooming LTG Modified Independent;Standing Shower/Tub Transfer Goals Shower/Tub Transfer STG Goal Status Goal continues Shower/Tub Transfer STG Tub Transfer;Setup/Supervision Shower/Tub Transfer LTG Goal Status Goal continues Shower/Tub Transfer LTG Tub Transfer;Modified Independent Upper Body Dressing Goals Upper Body Dressing STG Goal Status Goal continues Upper Body Dressing STG Setup/Supervision Upper Body Dressing LTG Goal Status Goal continues Upper Body Dressing LTG Modified Independent Lower Body Dressing Goals Lower Body Dressing STG Goal Status Goal continues Lower Body Dressing STG Setup/Supervision Lower Body Dressing LTG Goal Status Goal continues Lower Body Dressing LTG Modified Independent Toileting Goals Toileting STG Goal Status Goal continues Toileting STG Setup/Supervision Toileting LTG Goal Status Goal continues Toileting LTG Modified Independent Toilet Transfer Goals Toilet Transfer STG Goal Status Goal continues Toilet Transfer STG Setup/Supervision Toilet Transfer LTG Goal Status Goal continues Toilet Transfer LTG Modified Independent Bed Mobility Goals Bed Mobility STG Goal Status Goal continues Bed Mobility STG Modified Independent Bed Mobility LTG Goal Status Goal continues Bed Mobility LTG Independent Functional Transfer Goals Functional Transfer STG Goal Status Goal continues Functional Transfer STG Setup/Supervision Functional Transfer LTG Goal Status Goal continues Functional Transfer LTG Modified Independent Activity Tolerance Goals Activity Tolerance STG Goal Status Goal continues Activity Tolerance STG Fair;21-25 min;With ADLs;With exercise;With functional mo bility;With functional activity Activity Tolerance LTG Goal Status Goal continues Activity Tolerance LTG Fair;(+);21-25 min;With ADLs;With exercise;With functiona l mobility;With functional activity *PLAN Patient/Caregiver Goal Back to normal. Pt/Family involved in Plan of Care yes OT Treatment Interventions ADL retraining;Functional transfer training;Functiona l activity tolerance;Patient/family training;Equipment evaluation/education;Comp ensatory technique education OT Frequency 5x/wk Discharge Recommendations Plan Continued OT Plan Comments Continuation of skilled OT services for further increasing her fun ctional independence. Thank you WASHER * Therapy Note - Janet Roper, PT - 09/04/2019 9:37 AM AUTO WASHER 09/04/19 0937 PT Visit Info Initial PT Visit On 09/01/19 Assessed for Rehab Yes Past medical history reviewed through chart review: Yes Referral Reason PT eval and treat Medical Dx per Physician Sepsis, pyelonephritis, s/p ureteral stent placment 04/11 Ordering practitioner Chuckie Short MD Comorbidities pertaining to therapy diagnosis COPD @3L/min, HTN, L ankle fx s/p ORIF, kidney stones, morbid obesity, SASHA on CPAP, DM2, b/l TKA Patient/Family Reports Patient up in bedside chair upon arrival. Patient is high ly motivated to participate. PT Received On 09/04/19 PT Visit # 3 Time Calculation Start Time 09 Stop Time 1004 Total Treatment time (min) 26 min Actual time (if diff than calculation) 13min therapeutic activity; 13min gait tr aining Precautions Total Hip Replacement No Precautions Weight Bearing Status Weight Bearing As Tolerated LLE;Weight Bearing As Tolerate d RLE Back Precautions No Fall Risk Yes Isolation Contact & Droplet: RSV Supplemental Oxygen Yes - 3L via NC Pain Assessment Pain Score 9 Pain Type Acute pain Pain Location Flank Pain Orientation Left Cognition Overall Cognitive Status WFL Arousal/Alertness Appropriate responses to stimuli Attention Span Appears intact Memory Appears intact Orientation Level Oriented to person;Oriented to place;Oriented to time;Oriented to situation Following Commands Follows all commands and directions without difficulty Safety Judgment Good awareness of safety precautions Insight Fully aware of deficits Problem Solving Able to problem solve independently Perception Inattention/Neglect Appears intact Initiation Appears intact Motor Planning Appears intact Perseveration Not present Communication Communication Other Communication Comment No limitations noted. Vision-Basic Assessment Current Vision Wears glasses only for reading Bed Mobility Rolling Modified independent Supine to Sit Modified independent Bed Mobility Comments Patient able to climb into bed in quadraped. Patient unabl e to scoot posteriorly in sitting due to height of bed. Transfers Assistive Device None Sit to Stand Transfers Min assist;Verbal cueing required Stand to Sit Transfers Min assist;Verbal cueing required Transfer Comments Patient required BUE support to transfer into standing. Gait Gait Distance (Feet) 40ft x1; 50ft x1 Assistive Device None Gait Level Surface Assistance Minimal Pattern Decreased shital;Increased base of support;Increased lateral deviation Gait Comments Patient ambulates with a wide GRADY and slow shital. Patient has in creased SOA but it was minimal and SPO2 remained WFL. Balance Sitting Static 3;(+) Sitting Dynamic 5 Standing Static 3;(+) Standing Dynamic 3;(+) LE Ther Ex Ankle pump Bilateral;6 - 10 reps;Sitting Quad set Bilateral;1 - 5 reps;Sitting Heel slide Bilateral;1 - 5 reps;Sitting LAQ Bilateral;1 - 5 reps;Sitting UE Ther Ex Shoulder AB/AD Bilateral;1 - 5 reps;Sitting Elbow flexion Bilateral;1 - 5 reps;Sitting Elbow extension Bilateral;1 - 5 reps;Sitting Patient Education Patient Education Role of PT, plan of care for the day, safety with mobility, im portance of progressive mobility, need for continued PT Response to education verbalizes understanding Other Patient supine in bed at end of therapy session with call light in reach a nd bed alarm activated. *ASSESSMENT Learning Barriers None Response to Treatment Good;Tolerated well;Improved mobility Response to Treat Comments No adverse events noted Assistance Needed Occasional verbal cues (10-25%);Frequent tactile cues (26-50%) Problem List Activity tolerance;Balance;Caregiver education;Decreased gait speed ;Gait;Safety;Stairs;Strength;Transfers;Activity limitations;Body functions;Body structures;Body mechanics Timeframe Timeframe STG 4 visits Timeframe LTG 8 visits GOALS Goals Transfers;Gait distance;Stair/curb;Standing balance Bed Mobility Goals Bed Transfer STG Goal Status Achieved Bed Mobility STG Supervision Bed Transfer LTG Goal Status Achieved Bed Mobility LTG Modified independent Transfer Goals Transfer STG Goal Status Goal continues Transfer STG Supervision Transfer STG - Assistive Device Other (comment) (no AD) Transfer LTG Goal Status Goal continues Transfers LTG Modified independent Transfer LTG - Assistive Device Other (comment) (no AD) Gait Distance/Assist Goals Gait Distance STG (ft) 150 ft Gait Distance STG Goal Status Goal continues Gait Assist STG Standby assist Gait STG - Assistive Device Rolling walker Gait Distance LTG (ft) 300 ft Gait Distance LTG Goal Status Goal continues Gait Assist LTG Modified independent Gait LTG - Assistive Device Rolling walker Stair/Curb Goals Stair/Curb STG Goal Status Goal continues Stair/Curb STG 4-6 steps;2 handrails;Standby assist Stair/Curb LTG Goal Status Goal continues Stair/Curb LTG 4-6 steps;2 handrails;Modified independent Standing Balance Goals Standing Balance STG Goal Status Prior goal achieved;New goal Standing Balance STG 4 Standing Balance Goal Status LTG Prior goal achieved;New goal Standing Balance LTG 5 Plan Pt/Family Goal to go home PT Treatment Interventions Functional transfer training;LE strengthening/ROM;End urance training;Patient/family training;Equipment eval/education;Bed mobility;Ga it training;Compensatory technique education;Balance;Safety training;Progressive Mobility Progress Progressing toward goals PT Frequency 5x/wk Discharge Recommendations Plan Continued PT Equipment Recommended Walker Equipment Recommend Purpose to reduce fall risk;to improve balance;to promote fu nctional mobility;to promote proper gait sequence;improve body mechanics/posture ;improve activity tolerance Equipment Recommended Comment Pt owns recommended equipment WASHER * End of Shift Note - Sheryl Scott, ADAM - 09/04/2019 6:07 AM AUTO WASHER End of Shift Summary and Plan of Care Pt c/o 05/02 chest pain and states she thinks its due to her high BP. BP 180s/100 s, metoprolol given. Called Hospitalist and ECG and Trop ordered done and negati ve. Fentanyl given for pain and pt was pain free. Pt slept well overnight. Pt's BP reached 180s/100s again this morning and called Hospitalist and clonidine 0.1 mg given. VSS, SR, Will continue to monitor. Fall Prevention Plan Fall prevention interventions and safe environment main tained, see the Daily Cares/Safety flowsheet for documentation. Skin Integrity Plan skin integrity maintained and preventative interventions in place, see the Integumentary flowsheet for documentation. Goals/Plan for Shift Patient/Family stated goal for shift: My BP come down and be pain free Nursing goal for shift: Maintain normotensive SBP, manage pain Plan: Give meds to treat High BP and pain Goals/Plan for Hospital Stay Patient/Family stated goal for hospital stay: "get much better so I can go home" Nursing goal for hospital stay: improve urination, decrease pain Plan: utilize pharmacological measures as appropriate, monitor urine output WASHER * End of Shift Note - Malinda Rae RN - 09/03/2019 6:20 PM AUTO WASHER End of Shift Summary and Plan of Care Pt AOx4 on 4L NC, baseline of 2L. Pt got up to the chair 2x this shift and bathe d herself in the bathroom this afternoon. Urology wants to leave ballard catheter in place tonight and remove tomorrow at 0800 followed by a voiding trial. BP has been high 170-197 systolic despite home dose of 100mg metoprolol, pain meds, pa in free, and resting in bed. Will continue to monitor. Fall Prevention Plan Fall prevention interventions and safe environment main tained, see the Daily Cares/Safety flowsheet for documentation. Skin Integrity Plan skin integrity maintained and preventative interventions in place, see the Integumentary flowsheet for documentation. Goals/Plan for Shift Patient/Family stated goal for shift: Not have as much pain Nursing goal for shift: Get up to chair, decrease pain Plan: Get up in chair, give pain meds as needed Goals/Plan for Hospital Stay Patient/Family stated goal for hospital stay: "get much better so I can go home" Nursing goal for hospital stay: improve urination, decrease pain Plan: utilize pharmacological measures as appropriate, monitor urine output WASHER * End of Shift Note - Sam Calix RN - 09/03/2019 6:21 AM AUTO WASHER End of Shift Summary and Plan of Care Pt AOx4, continues to have intermittent flank pain. Remains on 2L NC. Pt cough m ore congested tonight, reports significantly more nasal drainage and an increase sputum production as well. Pt continues to refuse bipap for sleep. Fall Prevention Plan Fall prevention interventions and safe environment main tained, see the Daily Cares/Safety flowsheet for documentation. Skin Integrity Plan skin integrity maintained and preventative interventions in place, see the Integumentary flowsheet for documentation. Goals/Plan for Shift Patient/Family stated goal for shift: To sleep well Nursing goal for shift: To help patient sleep well Plan: Cluster cares Goals/Plan for Hospital Stay Patient/Family stated goal for hospital stay: "get much better so I can go home" Nursing goal for hospital stay: improve urination, decrease pain Plan: utilize pharmacological measures as appropriate, monitor urine output WASHER * End of Shift Note - Estella Hameed RN - 09/02/2019 6:41 PM AUTO WASHER End of Shift Summary and Plan of Care Pt remains comfortable and compliant to all care and interventions. Intermittent ly complains of pain, several doses of Fentanyl and one of [place] administered. P T/OT worked with pt and sat in chair for approx 2 hours. NC 2ltrs remains and fl uids d/c'ed. Ballard remains in place with ample urine output. Continue to monitor. Fall Prevention Plan Fall prevention interventions and safe environment main tained, see the Daily Cares/Safety flowsheet for documentation. Skin Integrity Plan skin integrity maintained and preventative interventions in place, see the Integumentary flowsheet for documentation. Goals/Plan for Shift Patient/Family stated goal for shift: Feel better, breathe better Nursing goal for shift: Pain management, Respiratory support, Fall prevention Plan: Assess and monitor for pain, Maintain O2 sats with supplemental O2 as need ed, fall risk protocol Goals/Plan for Hospital Stay Patient/Family stated goal for hospital stay: "get much better so I can go home" Nursing goal for hospital stay: improve urination, decrease pain Plan: utilize pharmacological measures as appropriate, monitor urine output WASHER * Therapy Note - Raeann Arenas, PT - 09/02/2019 11:55 AM AUTO WASHER 09/02/19 1155 PT Visit Info Initial PT Visit On 09/01/19 Assessed for Rehab Yes Past medical history reviewed through chart review: Yes Referral Reason Pt is a 69 y/o F admitted 08/30/19 with hematemesis and dizziness , found with obstructing ureteral stone and s/p emergent ureteral stent placemen t 08/30/19 with transfer to ICU for monitoring while on BiPAP. Pt now weaned onto nasal cannula. PT consult received for Eval & Treat. Medical Dx per Physician Sepsis, pyelonephritis, s/p ureteral stent placement 04/11 Ordering practitioner Chuckie Short MD Comorbidities pertaining to therapy diagnosis COPD @3L/min, HTN, L ankle fx s/p ORIF, kidney stones, morbid obesity, SASHA on CPAP, DM2, b/l TKA Patient/Family Reports RN okay'd pt for therapy. Pt was reclined in bed upon arr ival and agreeable to OOB activity. PT Received On 09/02/19 PT Visit # 2 Time Calculation Start Time 1139 Stop Time 1155 Total Treatment time (min) 16 min Actual time (if diff than calculation) 16 min of therapeutic activity Precautions Weight Bearing Status Weight Bearing As Tolerated LLE;Weight Bearing As Tolerate d RLE Back Precautions No Fall Risk Yes Isolation Contact and droplet Supplemental Oxygen Yes -- 2L via NC Other Multiple lines, ballard Pain Assessment Pain Score 9 Pain Type Acute pain Pain Location Flank Pain Orientation Left Pain Intervention(s) Repositioned;Ambulation/increased activity;Distraction Cognition Overall Cognitive Status WFL Arousal/Alertness Appropriate responses to stimuli Attention Span Appears intact Memory Appears intact Orientation Level Oriented to person;Oriented to place;Oriented to time;Oriented to situation Following Commands Follows all commands and directions without difficulty Safety Judgment Decreased awareness of need for assistance;Decreased awareness o f need for safety Insight Decreased awareness of deficits Problem Solving Assistance required to identify errors made Comments Impulsive at times Bed Mobility Supine to Sit Stand by assistance;HOB elevated Bed Mobility Comments Pt denied dizziness/lightheadedness with position changes -- was able to scoot hips forward once seated without difficulty Transfers Assistive Device Rolling walker Sit to Stand Transfers Min assist;Verbal cueing required;Assistive Device;Safety concerns Stand to Sit Transfers Min assist;Verbal cueing required;Assistive Device;Safety concerns Toilet transfer Min assist to left;Verbal cueing required;Assistive Device Transfer Comments Pt educated in safety/hand placement, reinforcement required d ue to decreased carryover -- decreased eccentric control during stand to sit -- pt denied dizziness/lightheadedness with position changes Gait Gait Distance (Feet) 15 ft x 2 Assistive Device Rolling walker Gait Level Surface Assistance Minimal Pattern L Decreased step length;R Decreased step length;Decreased shital;Increa sed base of support;Increased lateral deviation Gait Comments Pt reporting that her legs felt "bouncy" from the pain medication she was given prior to therapy -- no LOB demonstrated, mild instability demonstr ated at times -- pt fatigues quickly with ambulation and was educated in pursed lip breathing, reinforcement required Balance Sitting Static 3;(+) Sitting Dynamic 4 Standing Static 2;(+) Standing Dynamic 2;(-) Balance Activity Standing Surface level surface Standing Activity static;wt shift Standing Time 0-5 min Standing Assistance min assist;w/UE support Gait Activity Gait Surface level surface Gait Activity room mobility Gait Time 6-10 min Gait Assistance min assist;w/UE support Posture Sitting Posture forward head Standing Posture forward head;trunk flex forward Posture comments Cues for upright posture Activity Tolerance Activity Tolerance poor;+ Activity Tolerance Comments Limited due to "bouncing" BLE and fatigue Patient Education Patient Education Pt educated in PT POC, pursed lip breathing, and safety Response to education verbalizes understanding;needs further review Other Pt left in recliner with call light in reach, chair alarm set, and all nee ds met. *ASSESSMENT Learning Barriers None Response to Treatment Poor Assistance Needed Frequent verbal cues (26-50%);Occasional tactile cues (10-25%) Problem List Activity tolerance;Balance;Bed mobility;Caregiver education;Decreas ed gait speed;Gait;Safety;Stairs;Strength;Transfers Clinical presentation Evolving Timeframe Timeframe STG 4 visits Timeframe LTG 8 visits Bed Mobility Goals Bed Transfer STG Goal Status Goal continues;Partially met Bed Mobility STG Supervision Bed Transfer LTG Goal Status Goal continues Bed Mobility LTG Modified independent Transfer Goals Transfer STG Goal Status Goal continues Transfer STG Supervision Transfer STG - Assistive Device Rolling walker Transfer LTG Goal Status Goal continues Transfers LTG Modified independent Transfer LTG - Assistive Device Rolling walker Gait Distance/Assist Goals Gait Distance STG (ft) 150 ft Gait Distance STG Goal Status Goal continues Gait Assist STG Standby assist Gait STG - Assistive Device Rolling walker Gait Distance LTG (ft) 300 ft Gait Distance LTG Goal Status Goal continues Gait Assist LTG Modified independent Gait LTG - Assistive Device Rolling walker Stair/Curb Goals Stair/Curb STG Goal Status Goal continues Stair/Curb STG 4-6 steps;2 handrails;Standby assist Stair/Curb LTG Goal Status Goal continues Stair/Curb LTG 4-6 steps;2 handrails;Modified independent Standing Balance Goals Standing Balance STG Goal Status Goal continues Standing Balance STG 2;(+) Standing Balance Goal Status LTG Goal continues Standing Balance LTG 3;(+) Plan Pt/Family Goal to go home PT Treatment Interventions Functional transfer training;LE strengthening/ROM;End urance training;Patient/family training;Equipment eval/education;Bed mobility;Ga it training;Compensatory technique education;Balance;Safety training;Progressive Mobility Progress Slow progress, decreased activity tolerance PT Frequency 5x/wk Discharge Recommendations Plan Continued PT Equipment Recommended Walker Equipment Recommend Purpose to reduce fall risk;to improve balance;to promote fu nctional mobility;to promote proper gait sequence;improve body mechanics/posture ;improve activity tolerance Equipment Recommended Comment Pt owns recommended equipment Plan comments Pt's mobility was limited due to decreased activity tolerance. Pt initially observed without O2 on, O2 sats 86% on RA, NC was applied and pt was e ducated in wearing O2 at all times. Would benefit from continued skilled PT to f urther progress mobility, strength, and activity tolerance. WASHER * Therapy Note - Melany Garvey, OT - 09/02/2019 11:39 AM AUTO WASHER 09/02/19 1139 OT Visit Info Initial OT Visit On 09/01/19 Assessed for Rehab Yes Past medical history reviewed through chart review: Yes Referral Reason "eval and treat" Medical Dx per Physician Sepsis, pyelonephritis, s/p ureteral stent placement 04/11 Ordering practitioner Chuckie Short MD Comorbidities pertaining to therapy diagnosis Patient is a 69 y.o. female who pr esents severe sepsis, left ureteral stone with hydronephrosis and pyelonephritis . 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 Patient/Family Reports Patient is agreeable to working with therapy. RN cleared patient for therapy OT Received On 09/02/19 OT Visit # 2 Total Treatment Time (min) Start Time 1139 Stop Time 1155 Total Treatment time (min) 16 min Actual time (if diff than calculation) 16 minutes ADLs Precautions Weight Bearing Status Weight Bearing As Tolerated LLE;Weight Bearing As Tolerate d RLE Back Precautions No Fall Risk Yes Isolation Contact and droplet Supplemental Oxygen Yes 2 L via NC Pain Assessment Pain Score 9 Pain Type Acute pain Pain Location Flank Pain Orientation Left Pain Intervention(s) Repositioned;Ambulation/increased activity;Emotional suppor t ADL Grooming Supervision/Setup Grooming Type of Task Washing, Rinsing and/or Drying the hand Grooming Type of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 in new room) *ASSESSMENT Learning Barriers None Response to Treatment Fair Assistance Needed Frequent verbal cues (26-50%);Occasional tactile cues (10-25%) Problem List Activity tolerance;Balance;Bed mobility;Caregiver education;Decreas ed gait speed;Gait;Safety;Stairs;Strength;Transfers Clinical presentation Evolving Timeframe Timeframe STG 4 visits Timeframe LTG 8 visits GOALS Goals Bed Mobility;Transfers;Gait distance;Stair/curb;Standing balance Bed Mobility Goals Bed Transfer STG Goal Status New goal Bed Mobility STG Supervision Bed Transfer LTG Goal Status New goal Bed Mobility LTG Modified independent Transfer Goals Transfer STG Goal Status New goal Transfer STG Supervision Transfer STG - Assistive Device Rolling walker Transfer LTG Goal Status New goal Transfers LTG Modified independent Transfer LTG - Assistive Device Rolling walker Gait Distance/Assist Goals Gait Distance STG (ft) 150 ft Gait Distance STG Goal Status New goal Gait Assist STG Standby assist Gait STG - Assistive Device Rolling walker Gait Distance LTG (ft) 300 ft Gait Distance LTG Goal Status New goal Gait Assist LTG Modified independent Gait LTG - Assistive Device Rolling walker Stair/Curb Goals Stair/Curb STG Goal Status New goal Stair/Curb STG 4-6 steps;2 handrails;Standby assist Stair/Curb LTG Goal Status New goal Stair/Curb LTG 4-6 steps;2 handrails;Modified independent Standing Balance Goals Standing Balance STG Goal Status New goal Standing Balance STG 2;(+) Standing Balance Goal Status LTG New goal Standing Balance LTG 3;(+) *PLAN Pt/Family Goal to go home Pt/Family involved in Plan of Care Yes PT Treatment Interventions Functional transfer training;LE strengthening/ROM;End urance training;Patient/family training;Equipment eval/education;Bed mobility;Ga it training;Compensatory technique education;Balance;Safety training;Progressive Mobility PT Frequency 5x/wk PT Nursing Communication RN present throughout and aware of pt performance, acti vity tolerance, vitals, fatigue with gait, disposition Discharge Recommendations Plan Continued PT Equipment Recommended Walker Equipment Recommend Purpose to reduce fall risk;to improve balance;to promote fu nctional mobility;to promote proper gait sequence;improve body mechanics/posture ;improve activity tolerance Equipment Recommended Comment Pt owns recommended equipment Care Coordination Care Coordination Chart review, SBAR and care coordination with RN, OT, and Melina leal RN Initial evaluation completed with pt in ICU status, currently at 7L/min nasal ca nnula whereas baseline oxygen use is 2-4L/min. Pt demonstrates impaired strengt h, balance, transfers, gait, and activity tolerance. No distinct vitals sign ab normality, though fatigue evident throughout gait with decline of balance and ga it observed. Moderate complexity evaluation and plan of care further impacted b y pt comorbidities, personal factors, objective measures, and examination. Pt w ill benefit from continued PT to address deficits, maximize functional independe nce, and decrease caregiver burden. WASHER * End of Shift Note - Aye Roger RN - 09/01/2019 5:29 AM AUTO WASHER End of Shift Summary and Plan of Care Pt stable during shift. AOX4. Afebrile, T-max 99.1F. Pt c/o L flank pain during shift treated w/PRN Norc o and Fentanyl. NSR/sinus tach. HR 90-110s. BP 130-150/90s. Pt on 7 L NC while awake, Bipap for SASHA while sleeping off/on. 02 >92%. Lungs coarse, diminished, expiratory wheezes intermittently. [place]ronge, congested, moist, productive cough. No BM, bowel sounds audible. BG treated per sliding scale. UO 780 via [place]. Amb er w/red flecks/scant sediment. Strained. Pt pleasant and slept majority of shift. Daughter arrived midshift and has remai rogelio at bedside. Fall Prevention Plan Fall prevention interventions and safe environment main tained, see the Daily Cares/Safety flowsheet for documentation. Skin Integrity Plan skin integrity maintained and preventative interventions in place, see the Integumentary flowsheet for documentation. Goals/Plan for Shift Patient/Family stated goal for shift: Get good rest. Breathe better. Nursing goal for shift: Aid pt in improving/maintaing respiratory status. Aid pt in resting. Plan: Cluster care, minimize stimuli. Monitor and treat pt's respiratory status as indicated. Goals/Plan for Hospital Stay Patient/Family stated goal for hospital stay: "get much better so I can go home" Nursing goal for hospital stay: improve urination, decrease pain Plan: utilize pharmacological measures as appropriate, monitor urine output WASHER * End of Shift Note - Letty Villalta RN - 08/31/2019 5:00 PM AUTO WASHER End of Shift Summary and Plan of Care Pt remains on 7LNC, went back on Bipap between the hours of 0845 and 1100 for SO A, productive cough with yellow tinged sputum, robitussin and tessalon given, ne w respiratory PCR sent, low grade TMAX of 99.4 today, increased expiratory wheez e, flutter valve in use, breathing treatments as ordered, increased prednisone. Urine output adequate, IVFs decreased. VSS, continue POC. Fall Prevention Plan Fall prevention interventions and safe environment main tained, see the Daily Cares/Safety flowsheet for documentation. Skin Integrity Plan skin integrity maintained and preventative interventions in place, see the Integumentary flowsheet for documentation. Goals/Plan for Shift Patient/Family stated goal for shift: pain control Nursing goal for shift: pain control, decrease oxygen demands Plan: increase mobility, IS use, oral and IV pain meds Goals/Plan for Hospital Stay Patient/Family stated goal for hospital stay: "get much better so I can go home" Nursing goal for hospital stay: improve urination, decrease pain Plan: utilize pharmacological measures as appropriate, monitor urine output WASHER * End of Shift Note - Lisa Rucker RN - 08/31/2019 6:15 AM AUTO WASHER End of Shift Summary and Plan of Care Pt A/O. Afebrile. Pt with c/o pain at 04/01. Fentanyl 50mcg IV x3 given with im provement in pain and BP. BP trending up with pain level. Pt maintaining SpO2 on Bipap or 5L nc. Pt u/o diminishing throughout shift to approx 25mL/hr. Uri ne [place]; strained urine scant sediment at 0600. Bladder Scan 0mL in bladder. eICU notified. NS 1L administered over 2 hours. Improvement in U/O. U/O for sh ift 495. Pt turned as patient agreed. Pt refused multiple times to be turned. Discussed need for reposition pt stated understanding stating "I am most comfort able on my back". Pt only agreed to being pulled up in bed at times. (See eve y care/safety flowsheet). Currently pt resting comfortably. Will continue to m onitor. Fall Prevention Plan Fall prevention interventions and safe environment main tained, see the Daily Cares/Safety flowsheet for documentation. Skin Integrity Plan skin integrity maintained and preventative interventions in place, see the Integumentary flowsheet for documentation. Goals/Plan for Shift Patient/Family stated goal for shift: pain control and get sleep Nursing goal for shift: Pain control Plan: PRN medications as ordered; monitor pain q4 and PRN Goals/Plan for Hospital Stay Patient/Family stated goal for hospital stay: "get much better so I can go home" Nursing goal for hospital stay: improve urination, decrease pain Plan: utilize pharmacological measures as appropriate, monitor urine output WASHER * End of Shift Note - Katty Angulo RN - 08/30/2019 6:21 PM AUTO WASHER End of Shift Summary and Plan of Care Arrived in ICU after procedure on BiPap, maintaining SpO2 on 5L NC while eating. [place] given for pain. Fall Prevention Plan Fall prevention interventions and safe environment main tained, see the Daily Cares/Safety flowsheet for documentation. Skin Integrity Plan skin integrity maintained and preventative interventions in place, see the Integumentary flowsheet for documentation. Goals/Plan for Shift Patient/Family stated goal for shift: maintain comfort Nursing goal for shift: decrease pain Plan: utilize pharmacological interventions Goals/Plan for Hospital Stay Patient/Family stated goal for hospital stay: "get much better so I can go home" Nursing goal for hospital stay: improve urination, decrease pain Plan: utilize pharmacological measures as appropriate, monitor urine output WASHER * Assessment & Plan Note - Jun Licona MD - 08/30/2019 5:55 PM AUTO WASHER Associated Problem(s): Sinus tachycardia (Resolved 08/31/2019) Fluid resuscitate, resume home bb, monitor WASHER * Assessment & Plan Note - Cecilia Israel DO - 08/30/2019 5:55 PM AUTO WASHER Associated Problem(s): Acute vaginitis Fluconazole 150mg qOD X 3 days WASHER * Assessment & Plan Note - Cecilia Israel DO - 08/30/2019 5:54 PM AUTO WASHER Associated Problem(s): Hematemesis Hb remains stable - Cont PPI WASHER * Assessment & Plan Note - Jun Licona MD - 08/30/2019 5:54 PM AUTO WASHER Associated Problem(s): Type 2 diabetes mellitus with hyperglycemia, with long-te rm current use of insulin (HCC) Resume home basal with level V SSI WASHER * Assessment & Plan Note - Cecilia Israel DO - 08/30/2019 5:52 PM AUTO WASHER Associated Problem(s): COPD exacerbation (HCC)/ Acute on chronic hypoxemic respi ratory failure +RSV - Taper steroids q 3 days - Titrate off O2 as able WASHER * Assessment & Plan Note - Jun Licona MD - 08/30/2019 5:52 PM AUTO WASHER Associated Problem(s): left Ureteral stone with hydronephrosis S/p left ureteral stent placement by Urology on 08/30/19. F/u for definitive treat ment Flomax, strain urine WASHER * Assessment & Plan Note - Cecilia Israel DO - 08/30/2019 5:51 PM AUTO WASHER Associated Problem(s): Severe sepsis (HCC)/ pyelonephritis Sepsis resolved, s/p stent placement, ballard left in place, improving. - Will need to follow up with urology in 2-3 weeks WASHER * Operative Note - Janet Aragon MD - 08/30/2019 5:13 PM AUTO WASHER PREOPERATIVE DIAGNOSES: Left obstructing ureteral stone and sepsis. POSTOPERATIVE DIAGNOSES: Left obstructing ureteral stone and sepsis. PROCEDURES: Cystourethroscopy, left retrograde pyelogram and left ureteral sten t placement (6 x 26). SURGEON: Dr. Janet Aragon. ANESTHESIA: General. ESTIMATED BLOOD LOSS: None. COMPLICATIONS: None. SPECIMENS: Urine from left kidney for culture and sensitivity. INDICATION FOR PROCEDURE: Ms. Benítez is a 69-year-old female who recently underw ent left ureteroscopy for a large stone by Dr. Huber. Stent was removed in mid- July. She presented today with a picture of sepsis and CT revealed left 4-5 mm ureteral obstructing stone. Given her clinical picture, emergent stent was indicated. Risks of procedure were discussed including, not limited to infectio n, bleeding, injury to the urethra, bladder, ureter, need for secondary procedur es, stent pain, cardiopulmonary complications, even . She voiced understan ding and wishes to proceed. DESCRIPTION OF PROCEDURE: After informed consent was obtained, patient was take n back to the operating suite and placed supine. After induction of general ane sthesia, she was placed in dorsal lithotomy position. Genitalia were prepped an d draped in standard fashion. Rigid cystoscopy was performed. On external exam , she was noted to have significant vulvovaginal atrophy with mucosal cracking a t the posterior fourchette. On entrance into the bladder, immediately there was a large amount of purulent-appearing urine with lot of whitish debris which is probably consistent with yeast. The bladder was drained of a large residual of urine and because of the cloudiness, it took a couple of times filling and empty ing to be able to see anything. She had a mild to moderate cystocele noted and somewhat larger capacity bladder, mucosa appeared otherwise unremarkable. The l eft UO was cannulated with the sensor wire and this was threaded up into the lef t kidney. The 5-Croatian open-ended catheter was threaded over the top of this up to the kidney. Fluoroscopy revealed retained contrast from her contrasted CT s can and the left renal collecting system showing moderate hydronephrosis. The w deann was removed and urine was aspirated from the left kidney, which did not appe ar frankly purulent, but was definitely cloudy. The wire was replaced after inj ecting a small amount of contrast gently to delineate the collecting system for stent placement and this revealed moderate hydronephrosis. Wire was replaced an d the open-ended catheter was removed and a 6-Croatian x 26 cm double-J stent was threaded over the wire. Good curl was seen within the upper pole and good curl was seen in the bladder and this was left in place. There was a small stone fra gment in the bladder that was seen and drained out, but looked smaller than the fragment on a CT scan. I did inspect the urethra and palpated along the urethra to try to see if I could find the pinhole opening by expressing fluid from her urethral diverticulum that was noted on CT. Given her clinical status, I did no t spend a lot of time doing this and did not see anything remarkable in the uret hra at all. Therefore, the scope was removed and a 16-Croatian silicone catheter was placed due to her LATEX ALLERGY to dependent drainage. She was awoken, extu bated and taken to recovery in critical condition. She will be likely admitted to the ICU and will need broad coverage antibiotics and also would recommend cov erage for yeast. She will need full recovery with treatment before undergoing r epeat ureteroscopy. WASHER * Brief Operative Note - Janet Aragon MD - 08/30/2019 5:12 PM AUTO WASHER Brief Operative Note Isiah Do Board 08/30/2019 Event Time In Procedure / Incision Start 1546 Pre-op Diagnosis: LEFT URETERAL STONE, UTI, FEVER Post-op Diagnosis: Same Procedure: CYSTOSCOPY, WITH LEFT RETROGRADE PYELOGRAM AND LEFT URETERAL STENT INSERTION, Le ft - Ureter Surgeon(s) and Role: * Janet Aragon MD - Primary Anesthesia Type: General Staff: Sales Support Technician: Hermeilnda Russo RN Scrub Person: Chata Graham CNA Anesthesiologist: Ariel Hernandez MD QUALITATIVE FIELD COORDINATOR: Thad Bruce RN QUALITATIVE FIELD COORDINATOR Findings: See dictation Estimated Blood Loss: 0 mL Specimens: . ID Source Type Tests Collected By Collected At A Urine Urine CULTURE, AFB CULTURE, FUNGUS CULTURE, URINE Janet Aragon MD 08/30/19 1545 Description: A/ Urine for culture- left kidney- A&A C&S< AFB< FUNGAL GS Comment: Pre-op diagnosis: LEFT URETERAL STENOSIS Implants: Implant Name Type Inv. Item Serial No. Assessor Lot No. LRB No. Used Action IMPLANT STENT URETERAL CONTOUR 6FR X 26CM W/O [id number] 180-223/[id number] - LOG [id number] Non-Tissue Implant IMPLANT STENT URETERAL CONTOUR 6FR X 26CM W/O GUIDWIR E 180-223/[id number] [employer]ura [id number] Left 1 Implanted Complications: None Janet Aragon Date: 08/30/2019 Time: 5:12 PM WASHER documented in this encounter Plan of Treatment Care Team Description Date [place] [address] [place] [address] [phone] 02/29/2020 Office Visit Urology Order Schedule Name Type Priority Associated Diag noses 1 Occurrences starting 09/07/2019 until 03/07/2020 Ambulatory referral to Outpatient Routine Pyelone phritis Home Health Referral Severe sepsis (HCC) / pyelonephritis documented as of this encounter Procedures Comments Procedure Name Priority Date/Time Associated Diag nosis GLUCOSE POC Routine 09/07/2019 12:06 PM AUTO WASHER GLUCOSE POC Routine 09/07/2019 6:03 AM AUTO WASHER GLUCOSE POC Routine 09/07/2019 12:13 AM AUTO WASHER GLUCOSE POC Routine 09/06/2019 5:43 PM AUTO WASHER GLUCOSE POC Routine 09/06/2019 12:32 PM AUTO WASHER XR CHEST SINGLE VIEW Routine 09/06/2019 FRONTAL 5:28 AM AUTO WASHER GLUCOSE POC Routine 09/06/2019 3:45 AM AUTO WASHER COMPLETE BLOOD COUNT Routine 09/06/2019 3:28 AM AUTO WASHER BASIC METABOLIC PANEL Routine 09/06/2019 3:28 AM AUTO WASHER GLUCOSE POC Routine 09/05/2019 11:06 PM AUTO WASHER GLUCOSE POC Routine 09/05/2019 7:53 PM AUTO WASHER GLUCOSE POC Routine 09/05/2019 5:42 PM AUTO WASHER GLUCOSE POC Routine 09/05/2019 1:01 PM AUTO WASHER GLUCOSE POC Routine 09/05/2019 11:51 AM AUTO WASHER GLUCOSE POC Routine 09/05/2019 5:44 AM AUTO WASHER COMPLETE BLOOD COUNT Routine 09/05/2019 2:01 AM AUTO WASHER BASIC METABOLIC PANEL Routine 09/05/2019 2:01 AM AUTO WASHER GLUCOSE POC Routine 09/04/2019 11:13 PM AUTO WASHER GLUCOSE POC Routine 09/04/2019 8:28 PM AUTO WASHER GLUCOSE POC Routine 09/04/2019 5:41 PM AUTO WASHER CULTURE, BLOOD Timed 09/04/2019 11:32 AM AUTO WASHER CULTURE, BLOOD Timed 09/04/2019 11:22 AM AUTO WASHER GLUCOSE POC Routine 09/04/2019 11:18 AM AUTO WASHER GLUCOSE POC Routine 09/04/2019 5:09 AM AUTO WASHER GLUCOSE POC Routine 09/04/2019 12:13 AM AUTO WASHER TROPONIN STAT 09/03/2019 9:00 PM AUTO WASHER GLUCOSE POC Routine 09/03/2019 8:35 PM AUTO WASHER ECG STAT 09/03/2019 8:23 PM AUTO WASHER GLUCOSE POC Routine 09/03/2019 6:11 PM AUTO WASHER GLUCOSE POC Routine 09/03/2019 12:15 PM AUTO WASHER COMPLETE BLOOD COUNT Routine 09/03/2019 4:47 AM AUTO WASHER BASIC METABOLIC PANEL Routine 09/03/2019 4:47 AM AUTO WASHER GLUCOSE POC Routine 09/02/2019 11:30 PM AUTO WASHER GLUCOSE POC Routine 09/02/2019 7:53 PM AUTO WASHER GLUCOSE POC Routine 09/02/2019 5:07 PM AUTO WASHER GLUCOSE POC Routine 09/02/2019 11:37 AM AUTO WASHER GLUCOSE POC Routine 09/02/2019 5:15 AM AUTO WASHER COMPLETE BLOOD COUNT Routine 09/02/2019 4:08 AM AUTO WASHER BASIC METABOLIC PANEL Routine 09/02/2019 4:08 AM AUTO WASHER GLUCOSE POC Routine 09/01/2019 11:44 PM AUTO WASHER GLUCOSE POC Routine 09/01/2019 9:12 PM AUTO WASHER GLUCOSE POC Routine 09/01/2019 5:42 PM AUTO WASHER GLUCOSE POC Routine 09/01/2019 11:54 AM AUTO WASHER GLUCOSE POC Routine 09/01/2019 8:01 AM AUTO WASHER GLUCOSE POC Routine 09/01/2019 6:16 AM AUTO WASHER XR CHEST SINGLE VIEW Routine 09/01/2019 FRONTAL 5:13 AM AUTO WASHER BASIC METABOLIC PANEL Routine 09/01/2019 1:50 AM AUTO WASHER GLUCOSE POC Routine 08/31/2019 11:48 PM AUTO WASHER COMPLETE BLOOD COUNT Routine 08/31/2019 5:58 PM AUTO WASHER XR CHEST SINGLE VIEW STAT 08/31/2019 FRONTAL 5:39 PM AUTO WASHER GLUCOSE POC Routine 08/31/2019 5:38 PM AUTO WASHER US RENAL Routine 08/31/2019 2:11 PM AUTO WASHER PEP DEVICE Routine 08/31/2019 11:50 AM AUTO WASHER RESPIRATORY PANEL BY PCR Routine 08/31/2019 11:35 AM AUTO WASHER GLUCOSE POC Routine 08/31/2019 11:32 AM AUTO WASHER GLUCOSE POC Routine 08/31/2019 5:05 AM AUTO WASHER COMPLETE BLOOD COUNT Routine 08/31/2019 5:00 AM AUTO WASHER BASIC METABOLIC PANEL Routine 08/31/2019 5:00 AM AUTO WASHER GLUCOSE POC Routine 08/31/2019 1:42 AM AUTO WASHER TROPONIN Timed 08/30/2019 10:51 PM AUTO WASHER LACTATE VENOUS WB Timed 08/30/2019 10:51 PM AUTO WASHER TROPONIN Timed 08/30/2019 7:10 PM AUTO WASHER LACTATE VENOUS WB Routine 08/30/2019 7:10 PM AUTO WASHER BIPAP Routine 08/30/2019 6:11 PM AUTO WASHER GLUCOSE POC Routine 08/30/2019 5:16 PM AUTO WASHER GLUCOSE STAT 08/30/2019 4:48 PM AUTO WASHER GLUCOSE POC Routine 08/30/2019 4:35 PM AUTO WASHER FL RETROGRADE UROGRAPHY STAT 08/30/2019 IN OR 4:20 PM AUTO WASHER GLUCOSE POC Routine 08/30/2019 4:00 PM AUTO WASHER CULTURE, URINE Timed 08/30/2019 3:54 PM AUTO WASHER CULTURE, FUNGUS Timed 08/30/2019 3:54 PM AUTO WASHER CULTURE, AFB Timed 08/30/2019 3:54 PM AUTO WASHER CYSTOSCOPY, WITH 08/30/2019 LEFT URETERAL STENO SIS RETROGRADE PYELOGRAM AND 3:24 PM AUTO WASHER URETERAL STENT INSERTION GLUCOSE POC Routine 08/30/2019 2:57 PM AUTO WASHER GLUCOSE POC Routine 08/30/2019 2:55 PM AUTO WASHER URINALYSIS MICROSCOPIC STAT 08/30/2019 ONLY 2:14 PM AUTO WASHER URINALYSIS REFLEX STAT 08/30/2019 2:14 PM AUTO WASHER CULTURE, URINE STAT 08/30/2019 2:14 PM AUTO WASHER CULTURE, BLOOD STAT 08/30/2019 1:34 PM AUTO WASHER CULTURE, BLOOD STAT 08/30/2019 1:[address] ABDOMEN PELVIS W STAT 08/30/2019 CONTRAST 12:48 PM AUTO WASHER FLU PCR STAT 08/30/2019 12:29 PM AUTO WASHER ED PROCEDURE BASIC - Routine 08/30/2019 CRITICAL CARE 12:21 PM AUTO WASHER FECAL OCCULT BLOOD STAT 08/30/2019 INPATIENT 12:14 PM AUTO WASHER TROPONIN STAT 08/30/2019 12:13 PM AUTO WASHER NTPROBNP STAT 08/30/2019 12:13 PM AUTO WASHER MAGNESIUM Routine 08/30/2019 12:13 PM AUTO WASHER LIPASE STAT 08/30/2019 12:13 PM AUTO WASHER LACTATE VENOUS WB STAT 08/30/2019 12:13 PM AUTO WASHER COMPREHENSIVE METABOLIC STAT 08/30/2019 PANEL 12:13 PM AUTO WASHER CBC AND DIFF (MANUAL DIFF STAT 08/30/2019 IF NECESSARY) 12:13 PM AUTO WASHER XR CHEST SINGLE VIEW STAT 08/30/2019 FRONTAL 11:51 AM AUTO WASHER ECG STAT 08/30/2019 11:46 AM AUTO WASHER documented in this encounter Results * GLUCOSE POC (09/07/2019 12:06 PM AUTO WASHER) Only the most recent of 42 results within the time period is included. Glucose POC 259 (H) 70 - 100 mg/dL [facility] Specimen Performing Organization Address City/State/Zipcode Ph one Number [facility] [address] [facility] [place] [address] [facility] [address] [place] [facility] [place] [address], [facility] * XR Chest single view frontal (09/06/2019 5:28 AM AUTO WASHER) Only the most recent of 4 results within the time period is included. Specimen Impressions Performed At 1. Life-support devices as above. LEVI 2. Stable linear predominant perihilar and basilar opacities, likely subsegmental atelectasis. No focal cons olidations. 3. Low lung volumes. ATTESTATION STATEMENT: The Staff Radiol ogist has personally reviewed the images and dictated, reviewed, or edite d the final report. READING SITE: [facility] Narrative Performed At Patient: ISIAH BENÍTEZ Sex#: F #: 1950 Jose #: [id number] Location: [place] [address] 4065- Accessi on#: [id number] Procedure Requested: [id number] XR CHEST SINGLE VIEW FRONTAL Reason for Exam: Hypoxia Exam Ordered: 09/06/2019 03 00 Exam Date/Time: 09/06/2019 052 8 Begin exam date/time: 09/06/2019 045 2 XR CHEST SINGLE VIEW FRONTAL INDICATION: Hypoxia. COMPARISON STUDY: Chest radiographs 08/23 and 08/31/2019. CTA chest 09/13/2018. FINDINGS: Lordotic patient position. Life Support Devices: Stable right uppe r extremity PICC with tip in the mid SVC. Lungs: Stable low lung volumes. Stable linear predominant perihilar and basilar opacities. Stable pulmonary vas culature. No focal consolidations. Pleura: No pleural effusion or pneumoth orax. Heart and Mediastinum: Stable cardiomed iastinal silhouette and great vessels. Bones and Soft Tissues: Stable regional skeleton and soft tissues. Procedure Note Interface, Rad Results In - 09/06/2019 1:42 PM AUTO WASHER Patient: ISIAH BENÍTEZ Sex#: F #: 1950 Jose#: [id number] Location: [place] [address] [id number] Procedure Requested: [id number] XR CHEST SINGLE VIEW FRONTAL Reason for Exam: Hypoxia Exam Ordered: 09/06/2019 0300 Exam Date/Time: 09/06/2019 0528 Begin exam date/time: 09/06/2019 0452 XR CHEST SINGLE VIEW FRONTAL INDICATION: Hypoxia. COMPARISON STUDY: Chest radiographs 09/01/2019 and 08/31/2019. CTA chest 09/13/2018. FINDINGS: Lordotic patient position. Life Support Devices: Stable right upper extremity PICC with tip in the mid SVC. Lungs: Stable low lung volumes. Stable linear predominant perihilar and basilar opacities. Stable pulmonary vasculature. No focal consolidations. Pleura: No pleural effusion or pneumothorax. Heart and Mediastinum: Stable cardiomediastinal silhouette and great vessels. Bones and Soft Tissues: Stable regional skeleton and soft tissues. IMPRESSION 1. Life-support devices as above. 2. Stable linear predominant perihilar a nd basilar opacities, likely subsegmental atelectasis. No focal consolidations. 3. Low lung volumes. ATTESTATION STATEMENT: The Staff Radiologist has personally reviewed the images and dictated, reviewed, or edited the final report. READING SITE: [facility] Performing Organization Address [facility] one Number LEVI * Basic Metabolic Panel (09/06/2019 3:28 AM AUTO WASHER) Only the most recent of 6 results within the time period is included. Sodium 137 133 - 147 MEQ/L [facility] Potassium 3.7 3.5 - 5.3 MEQ/L [facility] Chloride 93 (L) 96 - 112 MEQ/L [facility] Carbon Dioxide 40 (H) 20 - 32 MEQ/L [facility] Anion Gap 4 (L) 5 - 17 [facility] Calcium 9.1 8.4 - 10.5 mg/dL [facility] Glucose 111 (H) 70 - 100 mg/dL [facility] Blood Urea 21 7 - 26 mg/dL [facility] Nitrogen [facility] Creatinine 0.7 0.4 - 1.1 mg/dL [facility] eGFR Female AA 100 60 - 200 [facility] mL/min/1.73sq m [facility] eGFR Female 83 60 - 200 [facility] Non-AA mL/min/1.73sq m [facility] Specimen Blood Performing Organization Address City/[facility] Ph one Number [facility] [address] [place] [facility] [address] [facility] [address] [facility] [place] [address] [facility] * Complete Blood Count (09/06/2019 3:28 AM AUTO WASHER) Only the most recent of 6 results within the time period is included. WBC 9.44 4.00 - 11.00 TH/uL [facility] RBC 3.64 (L) 4.00 - 5.00 MIL/uL [facility] Hemoglobin 11.8 (L) 12.0 - 15.0 g/dL [facility] Hematocrit 36 36 - 45 % [facility] MCV 99 80 - 99 fL [facility] MCH 32 27 - 34 pg [facility] MCHC 33 32 - 36 % [facility] RDW 13.4 11.5 - 14.5 % [facility] Platelet Count 215 140 - 400 TH/uL [facility] MPV 10.3 9.4 - 12.3 fL [facility] Nucleated RBCs 0 0 - 0 /100 [facility] Specimen Blood Performing Organization Address City/[facility] Ph one Number [facility] [address] [facility] , [place] [id number] [facility] [address] [place] [address] [facility] * Culture, Blood (09/04/2019 11:32 AM AUTO WASHER) Only the most recent of 4 results within the time period is included. Culture Result No Growth at 5 days [facility] Specimen Blood Narrative Performed At 20ml rh [facility] Performing Organization Address City/[facility] Ph one Number [address] [address] LABORATORIES [facility] [address] [place] [address] * Troponin (09/03/2019 9:00 PM AUTO WASHER) Only the most recent of 4 results within the time period is included. Troponin <0.01 0.00 - 0.03 ng/mL [facility] Comment: [facility] Troponin Value [facility] Interpretation 0.00 - 0.03 Healthy 0.04 - 0.12 Increased Cardiac Risk >0.12 Myocardial Infarction Troponin may not become elevated until 6 to 8 hours after onset of symptoms. Specimen Blood Performing Organization Address City/State/Zipcode Ph one Number [facility] [address] [place] [address] [facility] [address] [facility] [place] [address] [facility] * Electrocardiogram (ECG) (09/03/2019 8:23 PM AUTO WASHER) Only the most recent of 2 results within the time period is included. 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1950 Requested By: CHUCKIE SHORT Order Number: [id number] Reading MD: Omar Ramirez Measurements Intervals [place] Rate: 92 P: 59 LA: 148 QRS: 38 QRSD: 102 T: 50 QT: 388 QTc: 481 Interpretive Statements SINUS RHYTHM Electronically Signed On 09-15-2019 11:2 3:15 AUTO WASHER by Omar Ramirez Procedure Note Interface, External Ris In - 09/15/2019 11:23 AM AUTO WASHER [facility] Test Date: 2019-09-03 Pat Name: ISIAH BENÍTEZ Department: SI Room: [facility] 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 LEVI No suspicious renal mass identified. No evidence of hydronephrosis. READING SITE: [facility] Narrative Performed At Patient: ISIAH BENÍTEZ Sex#: F #: 1950 Jose #: [id number] Location: [facility] [address] [place] [id number] Accessi on#: [id number] Procedure Requested: [id number] US RENAL COMPLETE Reason for Exam: ARF, [...] Rad Results In - 08/31/2019 2:23 PM AUTO WASHER Patient: ISIAH BENÍTEZ Sex#: F #: 1950 Jose#: [id number] Location: [facility] 4 [facility] 4076- Procedure Requested: [id number] US RENAL COMPLETE Reason for Exam: ARF, [...] identified. No evidence of hydronephrosis. READING SITE: [facility] Organization Address City/[facility] Ph one Number LEVI * Respiratory Panel by PCR (08/31/2019 11:35 AM AUTO WASHER) [facility] Adenovirus Not Detected Not Detected [facility] Bordetella Not Detected Not Detected [facility] pertussis [facility] Chlamydophila Not Detected Not Detected [facility] pneumoniae [facility] Coronavirus Not Detected Not Detected [facility] 229E [facility] Coronavirus Not Detected Not Detected [facility] HKU1 [facility] Coronavirus Not Detected Not Detected [facility] NL63 [facility] Coronavirus Not Detected Not Detected [facility] OC43 [facility] Human Not Detected Not Detected [facility] Metapneumovirus [facility] (hMPV) Human Not Detected Not Detected [facility] Rhinovirus [facility] Enterovirus Influenza A Not Detected Not Detected [facility] Influenza B Not Detected Not Detected [facility] Mycoplasma Not Detected Not Detected [facility] Parainfluenza Not Detected Not Detected [facility] Virus (PIV) 1 Hospital Lab Parainfluenza Not Detected Not Detected [facility] Virus (PIV) 2 Hospital Lab Parainfluenza Not Detected Not Detected [facility] Virus (PIV) 3 Hospital Lab Parainfluenza Not Detected Not Detected [facility] Virus (PIV) 4 [facility] Respiratory Detected (A) Not Detected [facility]' Syncytial Virus Hospital Lab Pl Source NASOPHAR [facility] Specimen Nasopharynx, Performing Organization Address City/[facility] Ph one Number [facility] [address] [place] [address] LABORATORIES [facility] [address] [place] [address] * Lactate Venous WB (08/30/2019 10:51 PM AUTO WASHER) Only the most recent of 3 results within the time period is included. [facility] Lactate Venous 1.9 0.0 - 2.0 mmol/L [facility] Specimen Blood Narrative Performed At Reflex sepsis screen >2.0 [facility] Performing Organization Address [facility] one Number [facility] [address] [place] [address] [facility] [address] [place] [address] [facility] [address] [place] [address], [place] [phone] [facility] * Glucose (08/30/2019 4:48 PM AUTO WASHER) Glucose 304 (H) 70 - 100 mg/dL [facility] Specimen Blood Narrative Performed At Reflex order. Previous POC GLUCOSE >500 [facility] Performing Organization Address [facility] one Number [facility] [address] [place] [address] [facility] [address] [place] [place] [address] [facility] [address] [place] [address], [place] [phone] [facility] * FL Retrograde Urography in OR (08/30/2019 4:20 PM AUTO WASHER) Specimen Impressions Performed At FINDINGS/IMPRESSION: 1 intraoperative fluoroscopicvie w is submitted. LEVI Total fluoroscopy time was 19.4 seconds . Left ureteral stent has been placed. The proximal aspect is coiled w ithin the decompressed left renal pelvis. The distal aspect is not includ ed on this examination. Please see procedure note for further evaluati on. READING LOCATION: [facility] Narrative Performed At Patient: ISIAH BENÍTEZ Sex#: F #: 1950 Jose #: [id number] Location: [facility] MAIN OR NONE Procedure Requested: [id number] FL RETRO GRADE UROGRAPHY IN OR Reason for Exam: abdomen pain Exam Ordered: 08/30/2019 144 0 Exam Date/Time: 08/30/2019 1620 Begin exam date/time: 08/30/2019 1530 STUDY/PROCEDURE: Intraoperative fluoros copic procedure guidance INDICATION: Left ureteral calculus, hyd ronephrosis. COMPARISON: CT of the abdomen and pelvi s with contrast dated September 09, 2019. Procedure Note Interface, Rad Results In - 08/30/2019 7:33 PM AUTO WASHER Patient: ISIAH BENÍTEZ Sex#: F #: 1950 Jose#: [id number] Location: [facility] MAIN OR NONE Procedure Requested: [id number] FL RETROGRADE UROGRAPHY IN OR Reason for Exam: abdomen pain Exam Ordered: 08/30/2019 1440 Exam Date/Time: 08/30/2019 1620 Begin exam date/time: 08/30/2019 1530 STUDY/PROCEDURE: Intraoperative fluoroscopic procedure guidance INDICATION: Left ureteral calculus, hydronephrosis. COMPARISON: CT of the abdomen and pelvis with contrast dated September 09, 2019. IMPRESSION FINDINGS/IMPRESSION: 1 intraoperative fluoroscopicview is submitted. Total fluoroscopy time was 19.4 seconds. Left ureteral stent has been placed. The proximal aspect is coiled within the decompressed left renal pelvis. The distal aspect is not included on this examination. Please see procedure note for further evaluation. READING LOCATION: [facility] Address City[facility]State[facility] one Number [facility] * Culture, Urine (08/30/2019 3:54 PM AUTO WASHER) Only the most recent of 2 results within the time period is included. Isolate 1 >100,000 Cfu/ml (A) [facility] Isolate 1 Steven albicans (A) [facility] Isolate 1 In the absence of symptoms, [facility] Steven is generally Hospital Lab considered normal ciera. No therapy indicated unless high risk (, or neutropenic) or undergoing urologic procedure. If Ballard catheter present, remove or replace when able. (A) Specimen Urine - Urine Antibiotic Method Susceptibility Organism FLUCONAZOLE <=1: Sensitive Steven albicans VORICONAZOLE <=0.12: Sensitive Steven albicans Performing Organization Address [facility] Ph one Number [facility] [address] [place] [address] LABORATORIES [facility] [address] [place] [address] * Culture, Fungus (08/30/2019 3:54 PM AUTO WASHER) Isolate 1 Steven albicans (A) [facility] Specimen Urine - Urine Performing Organization Address [facility] Ph one Number [facility] [address] [place] [address] LABORATORIES [facility] [address] [place] [address] * Culture, AFB (08/30/2019 3:54 PM AUTO WASHER) AFB Stain No Acid Fast Bacilli seen on [facility]' fluorescent stain. Hospital Lab Culture result No Acid fast bacilli isolated [facility] Mycobacteriolog at 6 weeks [facility] y Specimen Urine - Urine Performing Organization Address [facility] one Number [facility] [address] [place] [address] LABORATORIES [facility] [address] [place] [address] * Urinalysis Microscopic Only (08/30/2019 2:14 PM AUTO WASHER) Microscopic RBC 6 - 10 (A) 0 - 5 /hpf [facility] U[facility] Microscopic WBC >40 (A) 0 - 5 /hpf [facility] Urine [facility] Epithelial Absent Absent [facility] Cells [facility] Hyaline Cast Large (A) Absent [facility] Bacteria Absent Absent [facility] WBC Clumps Present (A)Comment: WBC count Absent [facility] may be under-estimated due to [facility] the presence of WBC clumps. [facility] Yeast Present (A) Absent [facility] Specimen Catheter Urine Performing Organization Address [facility] Ph one Number [facility] [address] [place] [place], [place] [id number] [facility] [address] [place] [address] [facility] * Urinalysis Reflex (08/30/2019 2:14 PM AUTO WASHER) Appearance, Yellow [facility] Urine [facility] Glucose Urine >=1000 (A) Negative mg/dL [facility] Bilirubin Urine Negative Negative [facility] Ketones Urine Negative Negative mg/dL [facility] Specific >=1.030 1.001 - 1.030 [facility] [place], UA [facility] Hemoglobin Large (A) Negative [facility] Urine [facility] PH Urine 5.0 5.0 - 8.0 [facility] Protein Urine 30 (A) Negative mg/dL [facility] Qual [facility] Urobilinogen Negative Negative EU/dL [facility] Urine [facility] Nitrite Urine Negative Negative [facility] Leukocyte Positive (A) Negative [facility] Esterase [facility] Specimen Catheter Urine Performing Organization Address City/State/Zipcode Ph one Number [facility] [address] [place] [facility] [place] [address] [facility] [place] [facility] [address] [place] [address] [facility] * CT Abdomen Pelvis w contrast (08/30/2019 12:48 PM AUTO WASHER) Specimen Impressions Performed At 1. 5 mm proximal left ureteral stone and mild left-si ded hydronephrosis. MCKESSON No other nephroureterolithiasis is seen . 2. 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 Moderate urinary bladder distention. 3. Hepatomegaly and hepatic steatosis. READING SITE: [facility] Narrative Performed At Patient: ISIAH BENÍTEZ Sex#: F #: 1950 Jose #: [id number] Location: [facility] ED SED-07 Procedure Requested: [id number] CT ABDOM EN PELVIS W CONTRAST Reason for Exam: fever, vomiting bloo d Exam Ordered: 08/30/2019 113 2 Exam Date/Time: 08/30/2019 1248 Begin exam date/time: 08/30/[address] ABDOMEN PELVIS W CONTRAST INDICATION: fever, vomiting blood TECHNIQUE: Following the uneventful adm inistration of 100 mL Omnipaque 350 intravenous contrast, axial CT sect ions were obtained through the abdomen and pelvis including delayed im ages. Coronal and sagittal multiplanar reconstructions were perfor med. COMPARISON: 06/16/2019 FINDINGS: Lower chest: The visualized lower lungs are aerated. ABDOMEN: No free air, free fluid, or fluid colle ction. Liver: Hepatomegaly and hepatic steatos is. No liver lesion is seen. Gallbladder and biliary: Cholecystectom y. Normal caliber bile ducts. Spleen: Normal spleen. Pancreas: The pancreas enhances homogen eously without focal mass, ductal dilation, or peripancreatic inflammator y changes. Adrenal glands: Normal adrenal glands. Kidneys and ureters: 5 mm proximal left ureteral stone and mild left-sided hydronephrosis. No other nep hroureterolithiasis is seen. Normal attenuation bilateral kidneys. S imple right renal 1 cm cyst. No suspicious renal lesion GI tract: The stomach is decompressed a nd poorly evaluated. Small bowel and colon are of normal caliber. Mild s tool throughout colon. Normal caliber appendix. Vascular structures: Normal caliber abd ominal aorta. Mild atherosclerotic changes. The celiac art patti, SMA, bilateral renal arteries, and HANS are patent. Portal an d mesenteric venous structures are patent. Lymph nodes: No lymphadenopathy in the abdomen or pelvis. PELVIS: Genitourinary system: 3.2 x 2.3 cm uret hral diverticulum on image 84 series 2 with 2 subcentimeter stones. M oderate urinary bladder distention. Absent uterus. No adnexal m ass. Mild to moderate rectal stool. SKELETAL STRUCTURES AND SOFT TISSUES: N o fracture or destructive lesions in the visualized skeleton. Lower lumba r spine spondylosis with question of moderate canal stenosis at L4-L5. Procedure Note Interface, Rad Results In - 08/30/2019 1:09 PM AUTO WASHER Patient: ISIAH BENÍTEZ Sex#: Paulina #: 1950 Jose#: [id number] Location: [facility] ED SED-07 Procedure Requested: [id number] CT ABDOMEN PELVIS W CONTRAST Reason for Exam: fever, vomiting blood Exam Ordered: 08/30/2019 1132 Exam Date/Time: 08/30/2019 1248 Begin exam date/time: 08/30/[address] ABDOMEN PELVIS W CONTRAST INDICATION: fever, vomiting blood TECHNIQUE: Following the uneventful administration of 100 mL Omnipaque 350 intravenous contrast, axial CT secti ons were obtained through the abdomen and pelvis including delayed images. Coronal and sagittal multiplanar reconstructions were performed. COMPARISON: 06/16/2019 FINDINGS: Lower chest: The visualized lower lungs are aerated. ABDOMEN: No free air, free fluid, or fluid collection. Liver: Hepatomegaly and hepatic steatosis. No liver lesion is seen. Gallbladder and biliary: Cholecystectomy. Normal caliber bile ducts. Spleen: Normal spleen. Pancreas: The pancreas enhances homogeneously without focal mass, ductal dilation, or peripancreatic inflammatory changes. Adrenal glands: Normal adrenal glands. Kidneys and ureters: 5 mm proximal left ureteral stone and mild left-sided hydronephrosis. No other nephroureterolithiasis is seen. Normal attenuation bilateral kidneys. Simple right renal 1 cm cyst. No suspicious renal lesion GI tract: The stomach is decompressed and poorly evaluated. Small bowel and colon are of normal caliber. Mild stool throughout colon. Normal caliber appendix. Vascular structures: Normal caliber abdominal aorta. Mild atherosclerotic changes. The celiac artery, SMA, bilateral renal arteries, and HANS are patent. Portal and mesenteric venous structures are patent. Lymph nodes: No lymphadenopathy in the abdomen or pelvis. PELVIS: Genitourinary system: 3.2 x 2.3 cm urethral diverticulum on image 84 series 2 with 2 subcentimeter stones. Moderate urinary bladder distention. Absent uterus. No adnexal mass. Mild to moderate rectal stool. SKELETAL STRUCTURES AND SOFT TISSUES: No fracture or destructive lesions in the visualized skeleton. Lower lumbar spine spondylosis with question of moderate canal stenosis at L4-L5. IMPRESSION 1. 5 mm proximal left ureteral stone and mild left-sided hydronephrosis. No other nephroureterolithiasis is seen. 2. 3.2 x 2.3 cm urethral diverticulum wi th 2 subcentimeter stones. Moderate urinary bladder distention. 3. Hepatomegaly and hepatic steatosis. READING SITE: [facility] Performing Organization Address [facility] one Edgar SIMS * Influenza PCR (08/30/2019 12:29 PM AUTO WASHER) Pathologist [facility] Influenza A PCR Not Detected Not Detected [facility] Influenza B PCR Not Detected Not Detected [facility] Source Nasopharynx [facility] Specimen NASOPHARYNGEAL SWAB Performing Organization Address [facility] one Number [facility] [address] [place] [address] [facility] [address] [place] [address] [facility] * ED PROCEDURE BASIC - CRITICAL CARE (08/30/2019 12:21 PM AUTO WASHER) Narrative Performed At Dirk Valencia MD 08/30/2019 [...] Blood, diagnostic (non-neoplasm screening) (08/30/2019 12:14 PM AUTO WASHER) Fecal Occult Negative Negative [facility] Blood [facility] Sample 1 08/30/2019 [facility] Collection Date [facility] Specimen Stool Performing Organization Address [facility] one Number [facility] [address] [place] [address] [facility] [address] [place] [address] [facility] * Magnesium (08/30/2019 12:13 PM AUTO WASHER) Magnesium 1.7 1.4 - 2.7 mg/dL [facility] Specimen Blood Performing Organization Address [facility] one Number [facility] [address] [place] [address] [facility] [address] [place] [address] [facility] * BNP (08/30/2019 12:13 PM AUTO WASHER) NTproBNP 340 pg/mL [facility] Comment: [facility] Mancusos NT-proBNP Reference Ranges: [facility] <50 yr <450 pg/mL 50-75 yr <900 pg/mL >75 yr <1800 pg/mL A cutoff value of 1200 pg/mL is recommended in patients 50 to 70 years of age with a GFR between 30 and 60. NT-proBNP is unreliable in patients with GFR <30. Specimen Blood Performing Organization Address [facility] one Number [facility] [address] [place] [address] [facility] [address] [place] [address] [facility] * Lipase (08/30/2019 12:13 PM AUTO WASHER) Lipase 20 (L) 23 - 300 IU/L [facility] Specimen Blood Performing Organization Address [facility] one Number [facility] [address] [place] [address] [facility] [address] [place] [address] [facility] * Comprehensive Metabolic Panel (08/30/2019 12:13 PM AUTO WASHER) [facility] Signature Sodium 137 133 - 147 MEQ/L [facility] Potassium 4.4 3.5 - 5.3 MEQ/L [facility] Chloride 97 96 - 112 MEQ/L [facility] Carbon Dioxide 27 20 - 32 MEQ/L [facility] Anion Gap 14 5 - 17 [facility] Calcium 9.2 8.4 - 10.5 mg/dL [facility] Glucose 439 (H) 70 - 100 mg/dL [facility] Protein Total 8.8 (H) 6.0 - 8.2 g/dL [facility] Serum [facility] Albumin 4.5 3.5 - 5.0 g/dL [facility] Alkaline 124 42 - 140 IU/L [facility] Phosphatase [facility] Alanine 33 0 - 34 IU/L [facility] Aminotransferas [facility] Aspartate 36 15 - 46 IU/L [facility] Aminotransferas [facility] Bilirubin Total 0.5 0.2 - 1.3 mg/dL [facility] Blood Urea 26 7 - 26 mg/dL [facility] Nitrogen [facility] Creatinine 1.2 (H) 0.4 - 1.1 mg/dL [facility] eGFR Female AA 54 (L) 60 - 200 [facility] mL/min/1.73sq m [facility] eGFR Female 45 (L) 60 - 200 [facility] Non-AA mL/min/1.73sq [facility] Specimen Blood Performing Organization Address City/State/Zipcode Ph one Number [facility] [address] [facility] [place] [id number] [facility] [address] [place] [address] [facility] * CBC and Diff (manual diff if necessary) (08/30/2019 12:13 PM AUTO WASHER) [facility] WBC 12.26 (H) 4.00 - 11.00 TH/uL [facility] RBC 4.67 4.00 - 5.00 MIL/uL [facility] Hemoglobin 15.1 (H) 12.0 - 15.0 g/dL [facility] Hematocrit 45 36 - 45 % [facility] MCV 97 80 - 99 fL [facility] MCH 32 27 - 34 pg [facility] MCHC 33 32 - 36 % [place] [facility] RDW 13.1 11.5 - 14.5 % [facility] Platelet Count 161 140 - 400 TH/uL [facility] MPV 10.8 9.4 - 12.3 fL [facility] Nucleated RBCs 0 0 - 0 /100 [facility] % Neutrophils 87 (H) 45 - 78 % [facility] %Lymphocytes 10 (L) 15 - 47 % [facility] %Monocytes 3 0 - 12 % [facility] %Eosinophils 0 0 - 7 % [facility] %Basophils 0 0 - 2 % [facility] # Granulocytes 10.67 (H) 1.7 - 6.8 TH/uL [facility] # Lymphocytes 1.23 1.0 - 3.3 TH/uL [facility] # Monocytes 0.37 0.2 - 0.9 TH/uL [facility] # Eosinophils 0.00 0.0 - 0.4 TH/uL [facility] # Basophils 0.05 0.0 - 0.1 TH/uL [facility] Left Shift Present (A) Absent [facility] RBC Morphology Normal Normal [facility] Specimen Blood Performing Organization Address City/State/Zipcode Ph one Number [facility] [address] [place] [address] [facility] [address] [place] [address] [facility] documented in this encounter Visit Diagnoses Diagnosis Kidney stone Calculus of kidney Pyelonephritis Unspecified pyelonephritis Sepsis, due to unspecified organism, un specified whether acute organ dysfunction present (HCC) Ureteral stone Calculus of ureter left Ureteral stone with hydronephrosis Acute kidney injury (HCC) COPD exacerbation (HCC)/ Acute on chron ic hypoxemic respiratory failure Obstructive chronic bronchitis with exa cerbation Acute on chronic respiratory failure (H CC) Type 2 diabetes mellitus with hyperglyc emia, 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) Hematemesis Acute vaginitis Unspecified vaginitis and vulvovaginiti s Sinus tachycardia Other specified cardiac dysrhythmias Severe obesity (BMI >= 40) (HCC) Hypertension Unspecified essential hypertension documented in this encounter Admitting Diagnoses Diagnosis Pyelonephritis Unspecified pyelonephritis documented in this encounter Administered Medications Action Date Dose Rate Site Medication Order MAR Action acetaminophen (TYLENOL) suppository 325-650 mg 325-650 mg, Rectal, Every 6 hours PRN, mild pain (pain score 1-3), fever, Starting Wed08/30/19 at 1724, Administer if patient unable to tolerate oral medications., 08/30/2019 12:18 PM AUTO WASHER 1,000 mg acetaminophen (TYLENOL) tablet 1,000 mg Given 1,000 mg, Oral, Once, Wed08/30/19 at 1135, For 1 dose, Do not exceed 4 GM/DA Y of acetaminophen. If 65 or older do no t exceed 3 GM/DAY. If chronic alcoholic d o not exceed 2 GM/DAY., acetaminophen (TYLENOL) tablet 325-650 mg 325-650 mg, Oral, Every 6 hours PRN, mild pain (pain score 1-3), fever, Starting Wed08/30/19 at 1724, Do not exceed 4 GM/DAY of acetaminophen. If 6 5 or older do not exceed 3 GM/DAY. If chronic alcoholic do not exceed 2 GM/DAY., 09/02/2019 11:25 PM AUTO WASHER 2.5 mg albuterol (ACCUNEB) 2.5 mg/3 mL (0.083 Given %) nebulizer solution 2.5 mg 2.5 mg, Nebulization, Every 4 hours PRN , wheezing, shortness of air, Starting d 08/30/19 at 1725 2.5 mg Given 09/01/2019 1:03 AM AUTO WASHER 09/05/2019 3:01 PM AUTO WASHER 2 mg alteplase (CATHFLO ACTIVASE) injection 2 Given mg 2 mg, Intra-Catheter, As needed, declotting central catheter or sluggish/occluded CVC line, Starting u 08/31/19 at 1724, Use 2 mg/2 mL to declot catheter as needed, Declot catheter per Central Venous Access Device, Declottin g procedure in [facility] Refrigerate. Reconstitute with 2.2 mL sterile water for injection, 08/31/2019 6:33 PM AUTO WASHER 15 mL aluminum-magnesium hydroxide-simethicone Given (MAALOX PLUS) 400-400-40 mg/5 mL suspension 15 mL 15 mL, Oral, Every 4 hours PRN, indigestion, Starting Wed08/30/19 at 1723, Avoid if estimated glomerular filtration rate (eGFR) is less than 20 mL/minute/1.73m2., 09/06/2019 8:51 PM AUTO WASHER 25 mg amitriptyline (ELAVIL) tablet 25 mg Given 25 mg, Oral, Nightly, First dose on Wed08/30/19 at 2100 25 mg Given 09/05/2019 8:09 PM AUTO WASHER 25 mg Given 09/04/2019 8:33 PM AUTO WASHER 09/06/2019 8:51 PM AUTO WASHER 40 mg atorvastatin (LIPITOR) tablet 40 mg Given 40 mg, Oral, Nightly, First dose on Wed08/30/19 at 2100 40 mg Given 09/05/2019 8:09 PM AUTO WASHER 40 mg Given 09/04/2019 8:33 PM AUTO WASHER benzocaine-menthol (CEPACOL) lozenge 1 lozenge 1 lozenge, Buccal, Every 1 hour prn, sore throat, Starting Wed08/30/19 at 172 4 09/07/2019 2:48 PM AUTO WASHER 100 mg benzonatate (TESSALON) capsule 100 mg Given 100 mg, Oral, 3 times daily PRN, cough, Starting Wed08/30/19 at 1753, DO NOT CRUSH OR CHEW., 100 mg Given 09/07/2019 10:06 AM AUTO WASHER 100 mg Given 09/05/2019 8:27 PM AUTO WASHER bisacodyl (DULCOLAX) suppository 10 mg 10 mg, Rectal, Daily PRN, constipation, constipation in patients who are NPO, i n patients who have nausea, or in patient s where there is any concern about ileus or bowel obstruction., Starting Wed08/30/19 at 1723, Hold these medications if patient has had loose stool or diarrhea within previous 24 hours., 09/06/2019 10:03 AM AUTO WASHER 2 g cefTRIAXone (ROCEPHIN) injection 2 g Given 2 g, Intravenous, Daily, Indications: SEPSIS, UTI, First dose on Wed08/30/19 a t 1745, If giving IV push, reconstitute each vial with 20 ml sterile water and give over 3-5 minutes If sterile water is unavailable, may use Bacteriostatic Water or Normal Saline for reconstitution , 2 g Given 09/05/2019 10:33 AM AUTO WASHER 2 g Given 09/04/2019 9:14 AM AUTO WASHER 09/07/2019 10:06 AM AUTO WASHER 20 mg citalopram (CeleXA) tablet 20 mg Given 20 mg, Oral, Daily, First dose on Wed08/30/19 at 1745 20 mg Given 09/06/2019 9:23 AM AUTO WASHER 20 mg Given 09/05/2019 8:33 AM AUTO WASHER 09/04/2019 3:35 AM AUTO WASHER 0.1 mg cloNIDine HCl (CATAPRES) tablet 0.1 mg Given 0.1 mg, Oral, Every 8 hours PRN, SBP > 180 and/or DBP > 100, Starting Wed09/04/19 at 0322 09/07/2019 2:29 PM AUTO WASHER 10 mg cyclobenzaprine (FLEXERIL) tablet 10 mg Given 10 mg, Oral, 3 times daily PRN, muscle spasms, Starting Wed08/30/19 at 1726 10 mg Given 09/07/2019 10:05 AM AUTO WASHER 10 mg Given 09/04/2019 8:50 PM AUTO WASHER dextrose (D50W) 50 % injection 25-50 mL 25-50 mL, Intravenous, As needed, low blood sugar, for 24 hours., Starting We 08/30/19 at 1724, 25-50 mL, Intravenous, As needed, low blood [...] physician if less than 70 mg/dL., dextrose 10% (D10W) bolus 125-250 mL 125-250 mL, Intravenous, at 500-1,000 mL/hr, As needed, low blood sugar, Starting Wed08/30/19 at 1724, Give if patient NPO and IV access [...] Call physician if less than 70 mg/dL., docusate sodium (COLACE) capsule 100 mg 100 mg, Oral, 2 times daily PRN, stool softening, Starting Wed08/30/19 at 1723, DO NOT CRUSH OR CHEW., 09/01/2019 8:06 AM AUTO WASHER 100 mg doxycycline hyclate (VIBRA-TABS) tablet Given 100 mg 100 mg, Oral, 2 times daily with meals, Indications: COPD, UTI with hx of staph epi, First dose on Wed08/30/19 at 1745, Give with food to reduce GI upset, 100 mg Given 08/31/2019 5:30 PM AUTO WASHER 100 mg Given 08/31/2019 11:13 AM AUTO WASHER 09/07/2019 10:03 AM AUTO WASHER 40 mg Right Lo wer Abdomen enoxaparin (LOVENOX) syringe 40 mg Given 40 mg, Subcutaneous, Every 24 hours scheduled, First dose on Wed08/30/19 at 1745 40 mg Left Lower Abdomen Given 09/06/2019 9:24 AM AUTO WASHER 40 mg Right Lower Abdomen Given 09/05/2019 8:32 AM AUTO WASHER 09/06/2019 11:08 AM AUTO WASHER 50 mcg fentaNYL (SUBLIMAZE) injection 25-50 mcg Given 25-50 mcg, Intravenous, Every 3 hours PRN, severe pain (pain score 7-10), samuel n if unable to tolerate oral medications, Starting Wed08/30/19 at 1724, Administer over 2 minutes; max dose for IVP is 2 mcg/kg. Note: Limit does not apply to patients who may be tolerant to opioid therapy or on continuous IV or PO opiat e therapy., 50 mcg Given 09/05/2019 8:09 PM AUTO WASHER 50 mcg Given 09/05/2019 10:30 AM AUTO WASHER 08/30/2019 2:26 PM AUTO WASHER 50 mcg fentaNYL (SUBLIMAZE) injection 50 mcg Given 50 mcg, Intravenous, Once, Wed08/30/19 a t 1349, For 1 dose, Administer over 2 minutes; max dose for IVP is 2 mcg/kg. Note: Limit does not apply to patients who may be tolerant to opioid therapy o r on continuous IV or PO opiate therapy., 08/30/2019 5:57 PM AUTO WASHER 150 mg fluconazole (DIFLUCAN) tablet 150 mg Given 150 mg, Oral, Every other day, Indications: VAGINAL CANDIDIASIS, First dose on Wed08/30/19 at 1800, For 3 doses 09/07/2019 11:40 AM AUTO WASHER 400 mg 100 mL/hr fluconazole in NaCl (iso-osm) (DIFLUCAN) New Bag IVPB 400 mg 400 mg, Intravenous, at 100 mL/hr, Daily, Indications: CANDIDEMIA, C. albicans sensitive to fluconazole, Firs t dose on Wed09/06/19 at 1000 400 mg 100 mL/hr New Bag 09/06/2019 10:13 AM AUTO WASHER 09/05/2019 10:41 AM AUTO WASHER 400 mg 100 mL/hr fluconazole in NaCl (iso-osm) (DIFLUCAN) New Bag IVPB 400 mg 400 mg, Intravenous, at 100 mL/hr, Once , Indications: CANDIDEMIA, 09/05/19 at 1000, For 1 dose, Bag 1 of 2 for total dose 800 mg, 09/05/2019 12:46 PM AUTO WASHER 400 mg 100 mL/hr fluconazole in NaCl (iso-osm) (DIFLUCAN) New Bag IVPB 400 mg 400 mg, Intravenous, at 100 mL/hr, Once , Indications: CANDIDEMIA, 09/05/19 at 1200, For 1 dose, Bag 2 of 2 for total of 800 mg, 09/07/2019 8:16 AM AUTO WASHER 1 puff fluticasone furoate-vilanterol (BREO Given ELLIPTA) 200-25 mcg/actuation inhaler 1 puff 1 puff, Inhalation, Daily, First dose o n Wed08/30/19 at 1745, Rinse mouth with water after use if patient not on vent. , 1 puff Given 09/06/2019 8:44 AM AUTO WASHER 1 puff Given 09/05/2019 7:49 AM AUTO WASHER 09/06/2019 10:03 AM AUTO WASHER 40 mg furosemide (LASIX) injection 40 mg Given 40 mg, Intravenous, Once, Wed09/06/19 a t 0945, For 1 dose 09/07/2019 10:07 AM AUTO WASHER 600 mg gabapentin (NEURONTIN) capsule 600 mg Given 600 mg, Oral, 3 times daily, First dose on Wed08/30/19 at 1745 600 mg Given 09/06/2019 8:51 PM AUTO WASHER 600 mg Given 09/06/2019 5:14 PM AUTO WASHER glucagon (GLUCAGEN) injection 1 mg 1 mg, Intramuscular, As needed, low blood sugar, low blood sugar, Starting Wed08/30/19 at 1725, Give if patient NPO and no IV access. May give IM or SQ in arm and turn patient on side. Reconstitute powder for injection by adding 1 mL of sign board erector-supplied sterile diluent or sterile water for injection to a vial containing 1 unit o f the drug, to provide solutions containing 1 mg of glucagon/mL. Shake vial gently to dissolve., glucagon (GLUCAGEN) injection 1 mg 1 mg, Subcutaneous, As needed, low bloo d sugar, low blood sugar, Starting Wed08/30/19 at 1725, Give if patient NPO and no IV access. May give IM or SQ in arm and turn patient on side. Reconstitute powder for injection by adding 1 mL of sign board erector-supplied sterile diluent o r sterile water for injection to a vial containing 1 unit of the drug, to provide solutions containing 1 mg of glucagon/mL. Shake vial gently to dissolve., glucose chewable tablet 16-32 g 16-32 g, Oral, As needed, low blood sugar, Starting Wed08/30/19 at 1724, Giv e food, drink, or glucose tablets to car t low blood glucose if patient able to eat. For blood glucose (BG): Less than 50 mg/dL: Give 30 g of carbohydrate (32 g if using glucose tablets). Check [...] Call physician if less than 70 mg/dL., 09/07/2019 2:48 PM AUTO WASHER 200 mg guaiFENesin (ROBITUSSIN) 100 mg/5 mL Given syrup 200 mg 200 mg, Oral, Every 4 hours PRN, cough, Starting Wed08/30/19 at 1724 200 mg Given 09/07/2019 10:03 AM AUTO WASHER 200 mg Given 09/03/2019 3:05 AM AUTO WASHER 09/07/2019 10:05 AM AUTO WASHER 25 mg hydroCHLOROthiazide (HYDRODIURIL) tablet Given 25 mg 25 mg, Oral, Daily, First dose on Wed09/05/19 at 0900 25 mg Given 09/06/2019 9:24 AM AUTO WASHER 25 mg Given 09/05/2019 8:32 AM AUTO WASHER 09/04/2019 8:06 AM AUTO WASHER 1 tablet HYDROcodone-acetaminophen (NORCO) 5-325 Given mg per tablet 1 tablet 1 tablet, Oral, Every 4 hours PRN, moderate pain (pain score 4-6), Startin g Wed08/30/19 at 1724, If dose is a range, start with the lowest dose. If pain unrelieved within 1 hour may repeat dose. Total dose should not exceed upper limit of ordered dose range. For subsequent doses, start with the previous, total required dose to achiev e pain relief, 1 tablet Given 09/04/2019 3:11 AM AUTO WASHER 1 tablet Given 09/03/2019 2:11 PM AUTO WASHER 09/07/2019 10:03 AM AUTO WASHER 0.125 mg hyoscyamine (LEVSIN/SL) SL tablet 0.125 Given mg 0.125 mg, Sublingual, Every 4 hours, First dose on Wed09/06/19 at 1200, For bladder spasms, 0.125 mg Given 09/07/2019 4:25 AM AUTO WASHER 0.125 mg Given 09/07/2019 12:48 AM AUTO WASHER 08/30/2019 9:01 PM AUTO WASHER 20 Units Left Upp er Abdomen insulin glargine (LANTUS) injection 20 Given Units 20 Units, Subcutaneous, Nightly, First dose (after last modification) on Wed08/30/19 at 2100 09/06/2019 8:51 PM AUTO WASHER 25 Units Right Lo wer Abdomen insulin glargine (LANTUS) injection 25 Given Units 25 Units, Subcutaneous, Nightly, First dose (after last modification) on Wed08/31/19 at 2100 25 Units Right Arm Given 09/05/2019 8:06 PM AUTO WASHER 25 Units Left Lower Abdomen Given 09/04/2019 8:33 PM AUTO WASHER 09/07/2019 2:29 PM AUTO WASHER 9 Units Right Lo wer Abdomen insulin lispro (HumaLOG) injection 3-18 Given Units 3-18 Units, Subcutaneous, Every 6 hours scheduled, First dose on Wed08/30/19 at 1800, LEVEL 5 Give in addition to scheduled mealtime insulin per table Glucose Level (mg/dL) Dose <120 N o Insulin 121-150 No Insulin 151-200 3 units 201-250 6 units 251-300 9 units 301-350 12 units 351-400 15 units >40 0 18 units Bedtime Correction - If glucose level is < 200, do not give any correction dose If glucose level is > 200, give full dose of correction dose and check BG @ 0000 and 0300 DO NOT GIVE for any 2 hours post meal fingerstick blood glucose checks If pt NPO or on continuous enteral/parenteral nutrition - give with scheduled fingerstick blood glucose check - dose per table, 3 Units Left Upper Abdomen Given 09/07/2019 6:23 AM AUTO WASHER 12 Units Right Upper Abdomen Given 09/07/2019 12:48 AM AUTO WASHER 08/30/2019 3:05 PM AUTO WASHER 5 Units Right Up per Abdomen insulin regular (HumuLIN R) injection 5 Given Units 5 Units, Subcutaneous, Once, Wed08/30/19 at 1506, For 1 dose, Pre-op 08/30/2019 3:05 PM AUTO WASHER 5 Units insulin regular (HumuLIN R) injection 5 Given Units 5 Units, Intravenous, Once, Wed08/30/19 at 1506, For 1 dose, Pre-op 08/30/2019 12:48 PM AUTO WASHER 100 mL iohexol (OMNIPAQUE) 350 mg iodine/mL Given injection 100 mL 100 mL, Intravenous, Once in imaging, contrast, Starting Wed08/30/19 at 1248, For 1 dose 09/05/2019 8:41 PM AUTO WASHER 3 mL ipratropium-albuterol (DUO-NEB) 0.5-3 Given mg/3 mL nebulizer solution 3 mL 3 mL, Inhalation, 4 times daily, First dose on Ju 08/31/19 at 1115 3 mL Given 09/05/2019 1:40 PM AUTO WASHER 3 mL Given 09/05/2019 7:49 AM AUTO WASHER 09/07/2019 1:22 PM AUTO WASHER 3 mL ipratropium-albuterol (DUO-NEB) 0.5-3 Given mg/3 mL nebulizer solution 3 mL 3 mL, Inhalation, Every 4 hours, First dose (after last modification) on Wed09/06/19 at 0100 3 mL Given 09/07/2019 8:25 AM AUTO WASHER 3 mL Given 09/07/2019 3:51 AM AUTO WASHER 08/30/2019 2:39 PM AUTO WASHER 15 mg ketorolac (TORADOL) injection 15 mg Given 15 mg, Intravenous, Once, Wed08/30/19 at 1422, For 1 dose 09/07/2019 10:06 AM AUTO WASHER 2 capsules lactobacillus (CULTURELLE) 10 billion Given cell capsule 2 capsule, Oral, Daily, First dose on Wed08/30/19 at 1815 2 capsules Given 09/06/2019 9:23 AM AUTO WASHER 2 capsules Given 09/05/2019 8:33 AM AUTO WASHER magnesium sulfate IVPB 2 gram (premix) 2 g, Intravenous, at 25 mL/hr, As needed, standard electroyte replacement , Starting Wed08/30/19 at 1724, Replace in addition to any scheduled magnesium doses. Administer 2 grams over 2 hours for magnesium level less than or equal to 1.4 mg/dL. Repeat magnesium level in AM. Administer only if serum creatinin e is less than 2 within the previous 48 hours and sustained urine output is greater than 20 mL/hr for 6 hours (if able to monitor)., 09/05/2019 8:06 PM AUTO WASHER 3 mg melatonin tablet 3 mg Given 3 mg, Oral, Nightly PRN, sleep, Startin g Wed08/30/19 at 1724, Give 3-4 hours prio r to planned bedtime., 09/07/2019 10:04 AM AUTO WASHER 100 mg metoprolol tartrate (LOPRESSOR) tablet Given 100 mg 100 mg, Oral, 2 times daily, First dose on Wed08/30/19 at 2100, Hold for sbp < 100 or hr < 50, 100 mg Given 09/06/2019 8:52 PM AUTO WASHER 100 mg Given 09/06/2019 9:23 AM AUTO WASHER 09/04/2019 8:10 AM AUTO WASHER 100 mg 105 mL/hr micafungin (MYCAMINE) 100 mg in sodium New Bag chloride 0.9 % (NS) 100 mL IVPB 100 mg, Intravenous, Administer over 60 Minutes, Every 24 hours scheduled, Indications: CANDIDEMIA, First dose on Ju 08/31/19 at 1915, Flush IV line with NS prior to administration REFRIGERATE PROTECT FROM LIGHT, 100 mg 105 mL/hr New Bag 09/03/2019 11:19 AM AUTO WASHER 100 mg 105 mL/hr New Bag 09/02/2019 9:05 AM AUTO WASHER miconazole nitrate (ALOE VESTA) 2 % ointment Topical, 3 times daily PRN, perineal or skin fold redness, Starting Wed08/30/19 at 1724, Consult wound care if no improvement within 3 days., ondansetron (ZOFRAN) injection 4 mg 4 mg, Intravenous, Every 6 hours PRN, nausea/vomiting (2nd line), Starting We 08/30/19 at 1724 09/07/2019 2:29 PM AUTO WASHER 1 tablet oxyCODONE-acetaminophen (PERCOCET) 5-325 Given mg 1 tablet 1 tablet, Oral, Every 4 hours PRN, moderate pain (pain score 4-6), Startin g 09/04/19 at 1011, Do not exceed 4 GM/DAY of acetaminophen. If 65 or olde r do not exceed 3 GM/DAY. If chronic alcoholic do not exceed 2 GM/DAY., 1 tablet Given 09/07/2019 10:07 AM AUTO WASHER 1 tablet Given 09/07/2019 2:40 AM AUTO WASHER 09/07/2019 11:33 AM AUTO WASHER 40 mg pantoprazole (PROTONIX) injection 40 mg Given 40 mg, Intravenous, 2 times daily, Firs t dose on Wed08/30/19 at 2100, Dilute with 10 mL of 0.9% NaCl. DO NOT REFRIGERATE, 40 mg Given 09/06/2019 8:51 PM AUTO WASHER 40 mg Given 09/06/2019 9:23 AM AUTO WASHER 08/30/2019 2:20 PM AUTO WASHER 80 mg pantoprazole (PROTONIX) injection 80 mg Given 80 mg, Intravenous, Once, Wed08/30/19 at 1246, For 1 dose, Dilute with 10 mL of 0.9% NaCl. DO NOT REFRIGERATE, 09/07/2019 10:07 AM AUTO WASHER 100 mg phenazopyridine (PYRIDIUM) tablet 100 mg Given 100 mg, Oral, 3 times daily PRN, dysuria, Starting Wed09/06/19 at 0924 08/30/2019 2:36 PM AUTO WASHER 4.5 g 200 mL/hr piperacillin-tazobactam (ZOSYN) 4.5 g in New Bag dextrose ADDV (D5W) 5 % 100 mL IVPB 4.5 g, Intravenous, at 200 mL/hr, Once, Indications: SEPSIS, Wed08/30/19 at 1352 , For 1 dose polyethylene glycol (GLYCOLAX) packet 1 7 g 17 g, Oral, Daily PRN, constipation, constipation, Starting Wed08/30/19 at 1723, Mix in 4-8 ounces of liquid. Hold these medications if patient has had loose stool or diarrhea within previous 24 hours., potassium bicarb-citric acid (EFFER-K) effervescent tablet 20 mEq 20 mEq, Oral, As needed, standard electrolyte replacement, Starting Wed08/30/19 at 1724, Administer if unable to swallow potassium tablets. Replace in addition to [...] Oral, As needed, standard electrolyte replacement, Starting Wed08/30/19 at 1724, Replace in addition to any scheduled potassium [...] Hours, As needed, standard electrolyte replacement, Starting Wed08/30/19 at 1724, Administer if unable to take oral potassium. [...] of 20 mEq/hr through a central line., 08/30/2019 5:58 PM AUTO WASHER 20 mg predniSONE (DELTASONE) tablet 20 mg Given 20 mg, Oral, Daily, First dose on Wed08/30/19 at 1800, For 3 doses, Give with food to reduce GI upset, 09/07/2019 10:06 AM AUTO WASHER 30 mg predniSONE (DELTASONE) tablet 30 mg Given 30 mg, Oral, Daily, Indications: prevention of cardiac transplant rejection, First dose (after last modification) on Wed09/05/19 at 0900, Give with food to reduce GI upset, 30 mg Given 09/06/2019 9:23 AM AUTO WASHER 30 mg Given 09/05/2019 8:33 AM AUTO WASHER 09/04/2019 8:04 AM AUTO WASHER 40 mg predniSONE (DELTASONE) tablet 40 mg Given 40 mg, Oral, Daily, First dose on Ju 08/31/19 at 1115, Give with food to reduc e GI upset, 40 mg Given 09/03/2019 8:51 AM AUTO WASHER 40 mg Given 09/02/2019 8:59 AM AUTO WASHER prochlorperazine (COMPAZINE) injection 2.5-5 mg 2.5-5 mg, Intravenous, Every 4 hours PRN, nausea/vomiting (1st line), Starting Wed08/30/19 at 1724, May repeat 2.5 mg dose x 1 after 30 minutes if first dose ineffective. Do not exceed a total dose of 40 mg within a 24 hour period. Rate of administration should not exceed 5 mg/minute., prochlorperazine (COMPAZINE) injection 2.5-5 mg 2.5-5 mg, Intramuscular, Every 4 hours PRN, nausea/vomiting (1st line), Starting Wed08/30/19 at 1724, Administer if patient does not have IV access. May repeat 2.5 mg dose x 1 after 60 minutes if first dose ineffective. Do not exceed a total dose of 40 mg within a 2 4 hour period., prochlorperazine (COMPAZINE) suppositor y 25 mg 25 mg, Rectal, Every 12 hours PRN, nausea/vomiting (1st line), Starting We 08/30/19 at 1724, Administer if patient does not have IV access and refuses IM injection., sodium chloride (OCEAN) 0.65 % nasal spray 1 spray 1 spray, Each Nare, As needed, irritation, Starting Wed08/30/19 at 1724 08/30/2019 12:20 PM AUTO WASHER 1,000 mL 983.61 mL/hr sodium chloride 0.9% (NS) IV Bolus New Bag 1,000 mL, Intravenous, Administer over 61 Minutes, Once, Wed08/30/19 at 1134, For 1 dose 08/30/2019 6:07 PM AUTO WASHER 1,000 mL 983.61 mL/hr sodium chloride 0.9% (NS) IV Bolus New Bag 1,000 mL, Intravenous, Administer over 61 Minutes, Once, Wed08/30/19 at 1745, For 1 dose 08/31/2019 2:43 AM AUTO WASHER 1,000 mL 495.87 mL/hr sodium chloride 0.9% (NS) IV Bolus New Bag 1,000 mL, Intravenous, Administer over 121 Minutes, Once, [facility] 08/31/19 at 0300, For 1 dose 09/01/2019 6:01 AM AUTO WASHER 50 mL/hr 50 mL/hr sodium chloride 0.9% infusion New Bag 50 mL/hr, Intravenous, Continuous, Starting Wed08/30/19 at 1730, For 48 hours 50 mL/hr 50 mL/hr Rate/Dose Verify 08/31/2019 5:50 PM AUTO WASHER 50 mL/hr 50 mL/hr Rate/Dose Change 08/31/2019 3:30 PM AUTO WASHER 09/02/2019 2:35 AM AUTO WASHER 50 mL/hr 50 mL/hr sodium chloride 0.9% infusion New Bag 50 mL/hr, Intravenous, Continuous, Starting Wed09/01/19 at 1800, For 48 hours 50 mL/hr 50 mL/hr Continue Same Bag 09/01/2019 5:50 PM AUTO WASHER 09/07/2019 10:04 AM AUTO WASHER 0.4 mg tamsulosin (FLOMAX) 24 hr capsule 0.4 mg Given 0.4 mg, Oral, Daily, First dose on Wed08/30/19 at 1800, DO NOT CRUSH OR CHEW., 0.4 mg Given 09/06/2019 9:24 AM AUTO WASHER 0.4 mg Given 09/05/2019 8:32 AM AUTO WASHER 09/07/2019 10:04 AM AUTO WASHER 2 mg tolterodine (DETROL) tablet 2 mg Given 2 mg, Oral, 2 times daily, First dose o n Wed08/30/19 at 2100 2 mg Given 09/06/2019 9:51 PM AUTO WASHER 2 mg Given 09/06/2019 9:24 AM AUTO WASHER documented in this encounter Additional Health Concerns Resolved Time Infection Noted Time 08/30/2019 1:09 PM AUTO WASHER Influenza - Rule Out 08/30/2019 11:32 AM AUTO WASHER 09/17/2019 8:17 AM AUTO WASHER RSV 08/31/2019 6:35 PM AUTO WASHER documented as of this encounter
--- OUTSIDE RECORDS SUMMARY | 2019-11-28 22:18 | XMS REPORT | Encounter Summary ---
Author Author [facility] Organization [facility] Address Unknown Phone Unavailable Care Team Providers Care Doctor Of Nurse Anesthesia Practice Name Role Phone Ebony Sharp MD PCP Reason for Visit * Reason Comments Medication questions Encounter Details Care Team Description Date Type Department Fiorella Jackson RN Medication questions 07/17/2019 Telephone [facility] [address] [place], [place] [id number] Social History Date Tobacco Use Types Packs/Day [...] encounter Miscellaneous Notes * Telephone Encounter - Fiorella Jackson RN - 07/18/2019 9:42 AM MOGUL OPERATOR Order placed and patient notified. L OPERATOR * Telephone Encounter - Fiorella Jackson RN - 07/17/2019 3:27 PM MOGUL OPERATOR Insurance not covering trospium. They will cover oxybutynin er please advise, th anks ! L OPERATOR documented in this encounter Plan of Treatment Care Team Description Date Type [place] [address] [place] [address] [phone] 02/29/2020 Office Visit Urology documented as of this encounter Visit Diagnoses Not on filedocumented in this encounter
--- OUTSIDE RECORDS SUMMARY | 2019-11-28 22:18 | XMS REPORT | Encounter Summary ---
Author Author [facility] Organization [facility] Address Unknown Phone Unavailable Care Team Providers Care Pneumatic Hoist Operator Name Role Phone Ebony Sharp MD PCP Reason for Visit * Auth/Cert Referred By Contact Referred To Contact Status Reason Specialty Diagnoses / Procedures Diagnoses N20.0 P rocedures CYSTO/URETERO W/LITHOTRIPSY &INDWELL STENT INSRT CYSTOSCOPY, LEFT RETROGRADE PYELOGRAM, LEFT URETEROSCOPY, LASER LITHOTRIPSY, LEFT URETERAL STENT PLACEMENT Encounter Details Care Team Description [place] [address] [place] [address] [phone] Kidney stones (Primary Dx) 08/02/2019 [facility] [address] [place] [address] Social History Date Tobacco Use Types Packs/Day [...] Signs Reading Time Taken Comments Vital Sign 164/100 08/02/2019 11:10 AM FURNITURE ASSEMBLY SUPERVISOR Blood Pressure 76 08/02/2019 11:10 AM FURNITURE ASSEMBLY SUPERVISOR Pulse 36.4 C (97.6 F) 08/02/2019 11:10 AM FURNITURE ASSEMBLY SUPERVISOR Temperature 18 08/02/2019 11:10 AM FURNITURE ASSEMBLY SUPERVISOR Respiratory Rate 95% 08/02/2019 11:10 AM FURNITURE ASSEMBLY SUPERVISOR Oxygen Saturation - - Inhaled Oxygen Concentration 103 kg (227 lb) 08/02/2019 8:03 AM FURNITURE ASSEMBLY SUPERVISOR Weight 152.4 cm (5') 08/02/2019 8:03 AM FURNITURE ASSEMBLY SUPERVISOR Height 44.33 08/02/2019 8:03 AM FURNITURE ASSEMBLY SUPERVISOR Body Mass Index documented in this encounter Discharge Instructions * Pre-Procedure Instructions* Rosy Hart RN - 07/28/2019 1:39 PM FURNITURE ASSEMBLY SUPERVISOR Current Outpatient Medications Medication Sig Note: albuterol (VENTOLIN HFA) 90 mcg/actuation HFA inhaler INHALE 1 PUFF EVERY 4 HOURS NEEDED FOR WHEEZING Note:use if needed, bring inhaler on day of surgery amitriptyline (ELAVIL) 25 MG tablet Take 1 tablet (25 mg total) by mouth nig htly. Note:take as scheduled atorvastatin (LIPITOR) 40 MG tablet Take 1 tablet (40 mg total) by mouth jcarlos ly. (Patient taking differently: Take 40 mg by mouth nightly. ) Note:take as reagan eduled BREO ELLIPTA 200-25 mcg/dose INHALER INHALE 1 PUFF BY MOUTH DAILY Note:use o n morning of surgery citalopram (CELEXA) 20 mg tablet Take 1 tablet (20 mg total) by mouth daily. Note:take on morning of surgery cyclobenzaprine (FLEXERIL) 10 MG tablet Take 1 tablet (10 mg total) by mouth 3 (three) times a day as needed for muscle spasms. Note:take if needed gabapentin (NEURONTIN) 300 MG capsule TAKE 2 CAPSULES BY MOUTH THREE TIMES D AILY Note:take as scheduled, including morning of surgery HYDROcodone-acetaminophen (NORCO) 5-325 mg per tablet Take 1 tablet by mouth every 6 (six) hours as needed for pain. Max Daily Dose: 4 tablets Note:may take if needed for pain control insulin glargine (LANTUS U-100 INSULIN) 100 unit/mL injection ADMINISTER 20 UNITS UNDER THE SKIN EVERY NIGHT. E11.9 Note:take insulin the night before surge ry as scheduled insulin syringe (BD ULTRA-FINE) 0.3 mL 31 gauge x 5/16 Inject under the skin daily. use as directed Note: insulin syringe 0.3 mL 31 gauge x 5/16 USE DIRECTED Note: ipratropium-albuterol (DUO-NEB) 0.5-3 mg/3 mL nebulizer Inhale 3 mL 4 (four) times a day. (Patient taking differently: Inhale 3 mL 4 (four) times a day as n eeded. ) Note:use nebulizer if needed, even on morning of surgery metoprolol tartrate (LOPRESSOR) 100 MG tablet TAKE 1 TABLET BY MOUTH TWICE D AILY Note:take on morning of surgery oxybutynin (DITROPAN) 5 MG tablet Take 1 tablet (5 mg total) by mouth every 8 (eight) hours as needed. Note:take if needed OXYGEN THERAPY 2 L/min as needed. Note:use as directed tolterodine (DETROL) 2 MG tablet Take 1 tablet (2 mg total) by mouth 2 (two) times a day. Note:patient has not picked up prescription trospium (SANCTURA) 20 mg tablet Take 1 tablet (20 mg total) by mouth 2 (two ) times a day as needed. Note:patient has not picked up prescription vit A/vit C/biotin/zinc/copper (HYZP-VMDA-AKLD,VIT A,C-BIOTIN, ORAL) Take by mouth daily. Note:has stopped Preoperative phone call completed with patient. Medications reviewed. Instructio ns for surgery reviewed with patient stating understanding to instructions given . Previously had OR 06/28/19. No change in health condition. Patient will plan to proceed with surgery as scheduled. Family member to be present for surgery, transportation and care after. ITURE ASSEMBLY SUPERVISOR * Attachments The following attachments cannot be sent through Care Everywhere.* Kidney Stones, Treating: Ureteroscopic Stone Removal (Stateless) * Stents, Ureteral (Stateless) documented in this encounter Medications at Time of Discharge Start Date End Date Medication Sig Dispensed Refills 06/26/2019 amitriptyline (ELAVIL) 25 Take 1 tablet 90 tablet 1 MG tablet (25 mg total) by mouth nightly. 06/17/2019 atorvastatin (LIPITOR) 40 Take 1 tablet 90 tablet 1 MG tablet (40 mg total) by mouth daily. 07/14/2019 citalopram (CELEXA) 20 mg Take 1 tablet 90 tablet 1 tablet (20 mg total) by mouth daily. 08/26/2017 insulin syringe (BD Inject under 100 each 0 ULTRA-FINE) 0.3 mL 31 the skin gauge x 5/16 daily. use as directed 06/21/2018 insulin syringe 0.3 mL 31 USE 100 each 1 gauge x 5/16 DIRECTED 02/14/2016 01/14/2028 ipratropium-albuterol Inhale 3 mL 4 360 mL 11 (DUO-NEB) 0.5-3 mg/3 mL (four) times nebulizer a day. OXYGEN THERAPY 2 L/min as 0 needed. [...] A/vit Take by mouth 0 C/biotin/zinc/copper daily. (MYWN-XZXA-LXME,VIT A,C-BIOTIN, ORAL) 08/26/2017 08/28/2019 albuterol (VENTOLIN HFA) INHALE 1 PUFF 18 g 2 90 mcg/actuation HFA EVERY 4 HOURS inhaler NEEDED FOR WHEEZING 07/18/2019 08/25/2019 BREO ELLIPTA 200-25 INHALE 1 PUFF 60 each 0 mcg/dose BY MOUTH INHALERIndications: DAILY Chronic obstructive pulmonary disease, unspecified COPD type (HCC) 08/02/2019 08/10/2019 ciprofloxacin HCl (CIPRO) Take 1 tablet 14 tablet 0 500 MG tabletIndications: (500 mg UTI total) by mouth 2 (two) times a [...] 100 MG tablet BY MOUTH TWICE DAILY 08/02/2019 08/10/2019 oxyCODONE-acetaminophen Take 1 tablet 15 tablet 0 (PERCOCET) 5-325 mg per by mouth tablet every 4 (four) hours as needed for pain. Max Daily Dose: 6 tablets documented as of this encounter H&P Notes * Darin Huber MD - 08/02/2019 8:50 AM FURNITURE ASSEMBLY SUPERVISOR [facility] UROLOGY Pre-Op NOTE Patient: Isiah Benítez Age: 68 y.o. : 1950 PRIMARY CARE PROVIDER: Ebony Sharp MD ATTENDING PHYSICIAN: Darin Huber MD HISTORY OF PRESENT ILLNESS: 68-year-old female who originally presented with significant left-sided flank pa in. A CT demonstrated a large left lower pole stone. I took her to the OR appr oximately 2 weeks ago for a cystoscopy left ureteroscopy laser lithotripsy. Dur ing that case visualization became difficult and a left ureteral stent was place d. I saw her back last week with an x-ray that demonstrated some residual stone burden in the left lower pole. We discussed options but ultimately decided to perform a staging ureteroscopy. REVIEW OF SYSTEMS: : see HPI Constitutional: No fever, chills or fatigue Head: No Headaches Eyes: No visual changes Ears: No changes in hearing Pulm: No shortness of breath CV: No chest pain or palpitations GI: No nausea, vomiting, or diarrhea Skin: No rashes Heme: No easy bruising Neuro: No numbness, tingling Musculoskeletal: No weakness MEDICAL HISTORY: Past Medical History: Diagnosis [...] Refusal of blood transfusions as patient is Bahai Sleep apnea CPAP use Type 2 diabetes [...] STENT PLACEMENT; Surgeon: Darin Huber MD; Location: [facility] – [...] Medication Sig Dispense Refill Last Dose albuterol (VENTOLIN HFA) 90 mcg/actuation HFA inhaler INHALE 1 PUFF EVERY 4 HOURS NEEDED FOR WHEEZING 18 g 2 Past Month at Unknown time amitriptyline (ELAVIL) 25 MG tablet Take 1 tablet (25 mg total) by mouth nig htly. 90 tablet 1 08/01/2019 at Unknown time atorvastatin (LIPITOR) 40 MG tablet Take 1 tablet (40 mg total) by mouth jcarlos ly. (Patient taking differently: Take 40 mg by mouth nightly. ) 90 tablet 1 07/23 at Unknown time BREO ELLIPTA 200-25 mcg/dose INHALER INHALE 1 PUFF BY MOUTH DAILY 60 each 0 08/02/2019 at Unknown time citalopram (CELEXA) 20 mg tablet Take 1 tablet (20 mg total) by mouth daily. 90 tablet 1 08/01/2019 at Unknown time cyclobenzaprine (FLEXERIL) 10 MG tablet Take 1 tablet (10 mg total) by mouth 3 (three) times a day as needed for muscle spasms. 90 tablet 0 08/01/2019 at Un known time gabapentin (NEURONTIN) 300 MG capsule TAKE 2 CAPSULES BY MOUTH THREE TIMES D AILY 540 capsule 0 08/02/2019 at Unknown time HYDROcodone-acetaminophen (NORCO) 5-325 mg per tablet Take 1 tablet by mouth every 6 (six) hours as needed for pain. Max Daily Dose: 4 tablets 12 tablet 0 P ast Month at Unknown time insulin glargine (LANTUS U-100 INSULIN) 100 unit/mL injection ADMINISTER 20 UNITS UNDER THE SKIN EVERY NIGHT. E11.9 10 mL 5 08/01/2019 at Unknown time insulin syringe (BD ULTRA-FINE) 0.3 mL 31 gauge x 5/16 Inject under the skin daily. use as directed 100 each 0 08/01/2019 at Unknown time insulin syringe 0.3 mL 31 gauge x 5/16 USE DIRECTED 100 each 1 08/01/2019 at Unknown time ipratropium-albuterol (DUO-NEB) 0.5-3 mg/3 mL nebulizer Inhale 3 mL 4 (four) times a day. (Patient taking differently: Inhale 3 mL 4 (four) times a day as n eeded. ) 360 mL 11 More than a month at Unknown time metoprolol tartrate (LOPRESSOR) 100 MG tablet TAKE 1 TABLET BY MOUTH TWICE D AILY 180 tablet 0 08/02/2019 at Unknown time oxybutynin (DITROPAN) 5 MG tablet Take 1 tablet (5 mg total) by mouth every 8 (eight) hours as needed. 30 tablet 0 Past Month at Unknown time OXYGEN THERAPY 2 L/min as needed. 07/27/2019 at Unknown time tolterodine (DETROL) 2 MG tablet Take 1 tablet (2 mg total) by mouth 2 (two) times a day. 60 tablet 1 08/01/2019 at Unknown time trospium (SANCTURA) 20 mg tablet Take 1 tablet (20 mg total) by mouth 2 (two ) times a day as needed. 30 tablet 1 08/01/2019 at Unknown time vit A/vit C/biotin/zinc/copper (HDWN-HEBO-OAJF,VIT A,C-BIOTIN, ORAL) Take by mouth daily. Past Month at Unknown time MED LIST: Current Facility-Administered Medications Medication Dose Route Frequency Provider Last Rate Last Dose lactated ringers infusion 50 mL/hr Intravenous Continuous Medardo Pierce MD 50 mL/hr at 08/02/19 0827 50 mL/hr at 08/02/19826 lidocaine (pf) (XYLOCAINE-MPF) 10 mg/mL (1 %) injection 0.1-0.3 mL 0.1-0.3 mL Intradermal Once Oneil Stuart MD ALLERGIES: Lisinopril; Metformin; Sulfa (sulfonamide antibiotics); and [...] Last attempt to quit: 04/2011 Years since quittin.2 Smokeless tobacco: Never Used Tobacco comment: quit 7 years ago Substance and Sexual Activity Alcohol use: Yes Comment: rarely Drug use: No Sexual activity: Never Lifestyle Physical activity Days per week: Not on file Minutes per session: Not on file Stress: Not on file Relationships Social connections Talks on phone: Not on file Gets together: Not on file Attends rastafarian service: Not on file Active member of [...] Not on file Social History Narrative Ms. Board has one daughter, whom she lives with. [...] Brother Stroke Brother Heart attack Brother Vitals: 08/02/19 0758 08/02/19 0803 BP: (!) 141/79 Pulse: 72 Resp: 18 Temp: 36.8 C (98.3 F) SpO2: 94% Weight: 103 kg (227 lb) Height: 1.524 m (5') PHYSICAL EXAM: Gen: Alert and oriented HEENT: Normocephalic, Atraumatic Eyes: PERRL, EOMI Lungs: non-labored, good effort CV: Palp pulse in all 4 extremities Abd: Soft, non-tender, non-distended Back: No CVA tenderness on the RIGHT, No CVA tenderness on LEFT EXT: No redness, swelling, or calf tenderness Skin: Warm, dry and intact Neuro: CN II-XII grossly intact Bladder: no bladder distension noted Labs: Last 3 CBC Results (within last 7 days): No lab components to display Last 3 BMP Results (within the last 7 days): No lab components to display UA: Appearance, Urine Date/Time Value Ref Range Status 06/13/2019 02:29 PM Yellow Final Glucose Urine Date/Time Value Ref Range Status 07/14/2019 02:00 PM 500 (A) Negative mg/dL Final 06/13/2019 02:29 PM >=1000 (A) Negative mg/dL Final Hemoglobin Urine Date/Time Value Ref Range Status 07/14/2019 02:00 PM Large (A) Negative Final Ketones Urine Date/Time Value Ref Range Status 07/14/2019 02:00 PM Negative Negative Final PH Urine Date/Time Value Ref Range Status 07/14/2019 02:00 PM 5.0 5.0 - 8.0 Final Bilirubin Urine Date/Time Value Ref Range Status 07/14/2019 02:00 PM Small (A) Negative Final 06/13/2019 02:29 PM Negative Negative Final Leukocyte Esterase Date/Time Value Ref Range Status 07/14/2019 02:00 PM Trace (A) Negative Final 06/13/2019 02:29 PM Negative Negative Final Specific Eads, UA Date/Time Value Ref Range Status 07/14/2019 02:00 PM 1.030 1.001 - 1.030 Final Protein Urine Qual Date/Time Value Ref Range Status 07/14/2019 02:00 PM 300 (A) Negative Final IMAGES: No results found. ASSESSMENT/PLAN: 68F with residual left lower pole stone - To OR for Cysto, Left URS/HLL/Stent change - Cipro IV pre-op - DC home after procedure - Will schedule stent removal in clinic in 1-2wks ITURE ASSEMBLY SUPERVISOR documented in this encounter Miscellaneous Notes * Operative Note - Darin Huber MD - 08/02/2019 8:53 AM FURNITURE ASSEMBLY SUPERVISOR Brief Operative Note Isiah Benítez 08/02/2019 No case tracking events are documented in the log. Pre-op Diagnosis: N20.0 Post-op Diagnosis: Left N20.o Procedure: CYSTOSCOPY, LEFT RETROGRADE PYELOGRAM, LEFT URETEROSCOPY, LASER LITHOTRIPSY, LEF T URETERAL STENT PLACEMENT, Left Surgeon(s) and Role: * Darin Huber MD - Primary Anesthesia Type: General Staff: Integrity Director: Juventino Rubio RN Scrub Person: Tonja Robb No anesthesia staff entered. Findings: Left lower pole stone Estimated Blood Loss: 0 mL Specimens: Left renal stones Implants: 6x24 left ureteral stent Complications: None Description of Procedures: On August 02, 2019 after consent is obtained patient was taken to the operatin g room placed in supine position. She is then placed under general anesthesia. She received prep of IV Cipro for antibiotic coverage. She is then placed in d orsolithotomy energizer prepped and draped in normal sterile fashion. I began the procedure inserting the 21 Cypriot rigid cystoscope transurethral wit hout difficulty. Once into the bladder identified the left ureteral stent. I teresa coy used an alligator forceps to grasp the stent and pull this out to the urethr al meatus without difficulty. This was cannulated then with a sensor wire. Whi ch was passed up the renal pelvis under fluoroscopic guidance. I followed this with a 5 Cypriot open-ended stent over the sensor wire. A retrograde pyelogram w as performed that demonstrated normal caliber collecting system with stone in th e lower pole. At this point a sensor wire was replaced. I then selected a 12-1 4-36cm access sheath which was passed up over the sensor wire under fluoroscopic guidance into the renal pelvis. When I selected a flexible ureteroscope through the access sheath. Once into the kidney identified multiple smaller stones in the left lower pole. Is a 272 m laser fiber to break these up into smaller f ragments. A 1.5 nitinol basket was then utilized to evacuate all measurable sto ne stone burden from the entire kidney. At this point I passed a sensor wire to the upper pole. I withdrew the ureteroscope and the access sheath visualized t he entire ureter which is free of any injury and her stone burden. I then selec lexis a 6 x 24 stent was passed up the renal pelvis under fluoroscopic guidance. I had a good coil in the urinary bladder under direct visual guidance. I emptie d patient's bladder and withdrew the scope. Darin Huber MD Date: 08/02/2019 Time: 8:53 AM ITURE ASSEMBLY SUPERVISOR documented in this encounter Plan of Treatment Care Team Description [place] [address] [place] [address] [phone] 02/29/2020 Office Visit Urology documented as of this encounter Procedures Comments Procedure Name Priority Date/Time Associated Diag nosis FL RETROGRADE UROGRAPHY Routine 08/02/2019 IN OR 10:52 AM FURNITURE ASSEMBLY SUPERVISOR STONE ANALYSIS Timed 08/02/2019 10:21 AM FURNITURE ASSEMBLY SUPERVISOR CYSTOSCOPY, RETROGRADE 08/02/2019 N20.0 PYELOGRAM, URETEROSCOPY, 9:33 AM FURNITURE ASSEMBLY SUPERVISOR LASER LITHOTRIPSY, WITH URETERAL STENT PLACEMENT Special Needs HOLMIUM LASER ORDERED PER RADHA bsBIOMED NOTIFIEDC- ARMO2 PER NC PRN, NIGHT PRIOR UROLOGY OR 06/28/19OSA WITH CPAP USE GLUCOSE POC Routine 08/02/2019 8:56 AM FURNITURE ASSEMBLY SUPERVISOR GLUCOSE POC Routine 08/02/2019 7:46 AM FURNITURE ASSEMBLY SUPERVISOR GLUCOSE POC Routine 08/02/2019 7:42 AM FURNITURE ASSEMBLY SUPERVISOR documented in this encounter Results * FL Retrograde Urography in OR (08/02/2019 10:52 AM FURNITURE ASSEMBLY SUPERVISOR) Specimen Impressions Performed At Image demonstrates radiopaque catheter overlying left abdomen with MCKESSON minimal contrast overlying dilated left collecting system suggesting mild left renal caliectasis. Please see procedure note for additiona l details. READING SITE: [facility] NOTE: Parts of this report were generated wit Rocketick voice recognition software. BostInno Imagin2010;24(4):724-8. Narrative Performed At Patient: ISIAH BENÍTEZ Sex#: F #: [id number] Jose #: [id number] Location: [facility] MAIN OR NONE Procedure Requested: [id number] FL RETRO GRADE UROGRAPHY IN OR Reason for Exam: pain Exam Ordered: 08/02/2019 0 930 Exam Date/Time: 08/02/2019 10 52 Begin exam date/time: 08/02/2019 09 30 Digital fluoroscopy was provided during retrograde urography procedure. Approximately 61 seconds of fluoroscopi c time was utilized during the procedure. A single image is submitted for interpr etation. Procedure Note Interface, Rad Results In - 08/02/2019 11:07 AM FURNITURE ASSEMBLY SUPERVISOR Patient: ISIAH BENÍTEZ Sex#: F #: [id number] Jose#: [id number] Location: [facility] MAIN OR NONE Procedure Requested: [id number] FL RETROGRADE UROGRAPHY IN OR Reason for Exam: pain Exam Ordered: 08/02/2019 0930 Exam Date/Time: 08/02/2019 1052 Begin exam date/time: 08/02/2019 0930 Digital fluoroscopy was provided during retrograde urography procedure. Approximately 61 seconds of fluoroscopic time was utilized during the procedure. A single image is submitted for interpretation. IMPRESSION Image demonstrates radiopaque catheter overlying left abdomen with minimal contrast overlying dilated left collecting system suggesting mild left renal caliectasis. Please see procedure note for additional details. READING SITE: [facility] NOTE: Parts of this report were generated with voice recognition software. BostInno Imagin2010;24(4):724-8. Performing Organization Address City/State/Zipcode Ph one Number LEVI * Stone Analysis Urinary (08/02/2019 10:21 AM FURNITURE ASSEMBLY SUPERVISOR) Stone Color Brown [facility] Stone Size CommentComment: Specimen mm [facility] rp received as fragments. Stone Weight 169.0 mg [facility] Stone CommentComment: Percentage [facility] Composition (Represents the % compositi on) Stone Ca 05 % [facility] oxalate dihydrate Stone Ca 85 % [facility] oxalate monohydr Stone Calcium 10 % [facility] phosphate Stone Nidus No Nidus visualized [facility] Stone Surface Comment:Comment: Calcium [facility] Crystals oxalate dihydrate Stone Comment Comment [facility] Comment: Calculi report without photograph will follow via computer, mail, or hazmat cdl a driver delivery. Stone Comment Comment [facility] Comment: Physician questions regarding Calculi Analysis contact [facility] at: [phone]. Disclaimer : Comment [facility] Comment: This test was developed and its performance characteristics determined by [facility]. It has not been cleared or approved by the Food and Drug Administration. Performed at: [facility] [address] [id number] Research Executive: Seamus Infante MD, Phone: [phone] Specimen Stone - Left Ureter Performing Organization Address [facility] one Number [facility] [address] [place], [place] [address] [facility] Interface [id number] [place] [address] [place] [address] * GLUCOSE POC (08/02/2019 8:56 AM FURNITURE ASSEMBLY SUPERVISOR) Only the most recent of 3 results within the time period is included. Glucose POC 237 (H) 70 - 100 mg/dL [facility] Specimen Performing Organization Address [facility] Ph one Number [facility] [address] [facility] [place] [id number] [facility] [address] [facility] [address], [facility] documented in this encounter Visit Diagnoses Diagnosis Kidney stones Calculus of kidney documented in this encounter Administered Medications Action Date Dose Rate Site Medication Order MAR Action albuterol (ACCUNEB) 2.5 mg/3 mL (0.083 %) nebulizer solution 2.5 mg 2.5 mg, Nebulization, Every 4 hours PRN , wheezing, Starting Wed08/02/19 at 1032 , PACU (only) 08/02/2019 8:27 AM FURNITURE ASSEMBLY SUPERVISOR 20 mg famotidine (PEPCID) injection 20 mg Given 20 mg, Intravenous, Once, Wed08/02/19 at 0830, For 1 dose, Pre-op 08/02/2019 8:27 AM FURNITURE ASSEMBLY SUPERVISOR 25 mcg fentaNYL (SUBLIMAZE) injection 25 mcg Given 25 mcg, Intravenous, Once, Wed08/02/19 at 0845, For 1 dose, Pre-op, Administer over 2 minutes; max dose for IVP is 2 mcg/kg. Note: Limit does not apply to patients who may be tolerant to opioid therapy or on continuous IV or PO opiat e therapy., 08/02/2019 10:39 AM FURNITURE ASSEMBLY SUPERVISOR 50 mcg fentaNYL (SUBLIMAZE) injection 25-50 mcg Given 25-50 mcg, Intravenous, Every 5 min PRN , moderate pain (pain score 4-6), severe pain (pain score 7-10), Starting Wed08/02/19 at 1032, PACU (only), Start with 25 mcg dose. If pain unimproved or escalating after first dose, may administer in 50 mcg doses. Maximum cumulative dose of all administrations = 200 mcg., flumazenil (ROMAZICON) injection 0.2 mg 0.2 mg, Intravenous, As needed, benzodiazepine reversal, Starting Wed08/02/19 at 1032, PACU (only), If desired level of consciousness is not obtained, may repeat 0.2 mg IV every minute for a maximum of 4 doses. Call anesthesia STAT if administered., 08/02/2019 8:33 AM FURNITURE ASSEMBLY SUPERVISOR 5 Units insulin regular (HumuLIN R) injection 5 Given Units 5 Units, Intravenous, Once, Indications : hyperglycemia, Wed08/02/19 at 0845, Fo r 1 dose, Pre-op lactated ringers infusion 50 mL/hr, Intravenous, Continuous, Starting Wed08/02/19 at 1100, For 48 hours, PACU (only) 08/02/2019 8:27 AM FURNITURE ASSEMBLY SUPERVISOR 50 mL/hr 50 mL/hr lactated ringers infusion New Bag 50 mL/hr, Intravenous, Continuous, Starting Wed08/02/19 at 0830, For 48 hours, Pre-op metoclopramide (REGLAN) injection 5 mg 5 mg, Intravenous, Every 6 hours PRN, nausea/vomiting (2nd line), Starting We d 08/02/19 at 1032, PACU (only) metoclopramide (REGLAN) injection 5 mg 5 mg, Intramuscular, Every 6 hours PRN, nausea/vomiting (2nd line), Starting We 08/02/19 at 1032, PACU (only), Administer if patient does not have IV access., naloxone (NARCAN) injection 0.08 mg 0.08 mg, Intravenous, As needed, opioid reversal, respiratory depression, Starting Wed08/02/19 at 1032, PACU (only), FOR RESPIRATORY RATE < 9/MIN: dilute 1 mL (0.4 mg) naloxone with 9 mL NS (total 10 mL) to make a 0.04 mg/mL dilution. Give 2 mL (0.08 mg) of dilution every 2 minutes until respiratory rate is greater than 12/minute and/or drowsiness abates. STO P INFUSION. Caution: patient may experience a relapse of sedation within 1 to 2 hours. Call anesthesia and primary care physician STAT. Initiate Rapid Response Team The patient may experience relapse within 1 to 2 hours. IF PATIENT IS APNEIC: give naloxone 1 m L (0.4 mg) every 2 minutes until respiratory rate is greater than 12/minute and initiate Rapid Reponse Team. Place oxygen face mask, FiO2 100 % STAT if naloxone is administered., ondansetron (ZOFRAN) injection 4 mg 4 mg, Intravenous, Every 6 hours PRN, nausea/vomiting (3rd line), Starting We 08/02/19 at 1032, PACU (only) oxyCODONE (ROXICODONE) immediate releas e tablet 5-10 mg 5-10 mg, Oral, Every 3 hours PRN, mild pain (pain score 1-3), Starting Wed08/02/19 at 1032, PACU (only), Start with 5 mg dose. If pain unrelieved within 1 hour may repeat 5 mg dose. If two 5 mg doses required in 1 hour, subsequent doses may be 10 mg., prochlorperazine (COMPAZINE) injection 2.5-5 mg 2.5-5 mg, Intravenous, Every 4 hours PRN, nausea/vomiting (1st line), Starting Wed08/02/19 at 1032, PACU (only), May repeat 2.5 mg dose x 1 afte r 30 minutes if first dose ineffective. D o not exceed a total dose of 40 mg within a 24 hour period. Rate of administratio n should not exceed 5 mg/minute., prochlorperazine (COMPAZINE) injection 2.5-5 mg 2.5-5 mg, Intramuscular, Every 4 hours PRN, nausea/vomiting (1st line), Starting Wed08/02/19 at 1032, PACU (only), Administer if patient does not have IV access. May repeat 2.5 mg dose x 1 after 60 minutes if first dose ineffective. Do not exceed a total dose of 40 mg within a 24 hour period., prochlorperazine (COMPAZINE) suppositor y 25 mg 25 mg, Rectal, Every 12 hours PRN, nausea/vomiting (1st line), Starting We 08/02/19 at 1032, PACU (only), Administer if patient does not have IV access and refuses IM injection., documented in this encounter
--- OUTSIDE RECORDS SUMMARY | 2019-11-28 22:18 | XMS REPORT | Encounter Summary ---
Author Author [facility] Organization [facility] Address Unknown Phone Unavailable Care Team Providers Care Speeder Tender Name Role Phone Ebony Sharp MD PCP Reason for Referral * Testing (Routine) Referred By Contact Referred To Contact Status Reason Specialty Diagnoses / [place] [address], [place] [address] [address] [address] [place] [address] Authorized Urology Diagnoses Nephrolithiasis Kidney stones P rocedures Cystoscopy with Stent Pull Reason for Visit * Reason Comments Nephrolithiasis post op Encounter Details Care Team Description Date [place] [address], [place] [id number] Kidney stones (Primary Dx); Nephrolithiasis; Renal calculus 08/10/2019 Procedure visit [facility] [address], [place] [id number] Social History Date Tobacco Use Types Packs/Day [...] Signs Reading Time Taken Comments Vital Sign 130/92 08/10/2019 8:35 AM LICENSED MARRIAGE AND FAMILY THERAPIST Blood Pressure 96 08/10/2019 8:35 AM LICENSED MARRIAGE AND FAMILY THERAPIST Pulse - - Temperature - - Respiratory Rate - - Oxygen Saturation - - Inhaled Oxygen Concentration 102.1 kg (225 lb) 08/10/2019 8:35 AM LICENSED MARRIAGE AND FAMILY THERAPIST Weight 152.4 cm (5') 08/10/2019 8:35 AM LICENSED MARRIAGE AND FAMILY THERAPIST Height 43.94 08/10/2019 8:35 AM LICENSED MARRIAGE AND FAMILY THERAPIST Body Mass Index documented in this encounter Patient Instructions * Patient Instructions* Darin Huber MD - 08/10/2019 8:30 AM LICENSED MARRIAGE AND FAMILY THERAPIST Kidney Stones: Are You at Risk? People who form kidney stones often share certain risk factors. Middle-aged men, for instance, are more likely to form stones than other people. A family history of stones also increases your risk. Assess your risk factors by checking the q uestions below yes or no. Yes No Do you drink fewer than 8 glasses of water a day? [] [] Do you live in the [facility] or another hot climate? [] [] Have you ever had a kidney stone before? [] [] Has anyone in your family had kidney stones? [] [] Are you a male between the ages of 30 and 50? [] [] Have you had a kidney infection in the last few months? [] [] Do you take large doses of vitamin C supplements? [] [] Does your diet include only low amounts of calcium or potassium? [] [] Do you often drink cola, or eat chocolates, spinach, or peanuts (high-oxalate fo ods)? [] [] Do you eat foods high in salt and meat content? (Eating a obkl-twjyiw-bcyovgb di et is a risk for uric acid and calcium stones. A high-salt diet is a risk for al l types of kidney stones.) [] [] Do you have gout or hyperparathyroidism? [] [] Do you eat foods with a high sugar content? [] [] How great is your risk? The more times you answered yes, the greater your risk of forming kidney stones. But you can help reduce your risk. Learn more about kidney stones, how they for m, and how to prevent them. Date Last Reviewed: 08/23/201619995692-4872 [employer]. [address] [place] [address] 326 7. All rights reserved. This information is not intended as a substitute for pro fessional medical care. Always follow your healthcare professional's instruction s. NSED MARRIAGE AND FAMILY THERAPIST documented in this encounter Progress Notes * Darin Huber MD - 08/10/2019 8:30 AM LICENSED MARRIAGE AND FAMILY THERAPIST Urology follow up note Darin Huber Encounter Date: 08/10/2019 8:45 AM Patient Demographic Information: Patient Name: Caren Patten Age: 68 y.o. Sex: female Date of : 1950 PCP: Ebony Sharp MD Physician requesting consultation: No ref. provider found Chief Complaint Patient presents with Nephrolithiasis post op The primary encounter diagnosis was Kidney stones. Diagnoses of Nephrolithiasis and Renal calculus were also pertinent to this visit. HPI Pt presents for post-op regarding kidney stones on 08/02/2019 Pt does not have a family hx of kidney stones. Associated symptoms:frequency, urgency, nocturia, weak stream and incomplete emp tying The patient denies: Symptoms: hematuria, abdominal pain, suprapubic pain, fever, chills and nausea Duration of most recent stone: weeks. Most recent treatment: Recent Tx of: Ureteroscopy and Litho/Stent Course of symptoms: decreasing. Patient post-op visit stent placement and ureteroscopy/litho Surgery date 08/02/19 ago Associated symptoms:none The patient denies: Symptoms: hematuria, abdominal pain, suprapubic pain, fever, chills, nausea and vomiting Course of symptoms: improving. AUA Score Sheet Over the past month 1) Incomplete emptying 4 - More than half the time 2) Frequency 5 - Almost always 3) Hesitancy 3 - About half the time 4) Urgency 3 - About half the time 5) Weak stream 5 - Almost always 6) Straining 5 - Almost always 7.) Nocturia 3 - 3 times Total Score 27 Quality of Life 4 - Mostly dissatisfied Histories Allergies Allergen Reactions Lisinopril Anaphylaxis Metformin Anaphylaxis Angioedema Sulfa (Sulfonamide Antibiotics) Hives and Itching Latex, Natural Rubber Hives Reaction from oxygen nasal cannula Current Medications Current Outpatient Medications Medication Sig Dispense Refill albuterol (VENTOLIN HFA) 90 mcg/actuation HFA inhaler INHALE 1 PUFF EVERY 4 HOURS NEEDED FOR WHEEZING 18 g 2 amitriptyline (ELAVIL) 25 MG tablet Take 1 [...] THREE TIMES D AILY 540 capsule 0 insulin glargine (LANTUS U-100 INSULIN) 100 unit/mL injection ADMINISTER 20 UNITS UNDER THE SKIN EVERY NIGHT. E11.9 10 mL 5 insulin syringe (BD ULTRA-FINE) 0.3 mL 31 [...] as needed for pain. 9 tablet 0 tolterodine (DETROL) 2 MG tablet Take 1 tablet (2 mg total) by mouth 2 (two) times a day. 30 tablet 0 vit A/vit C/biotin/zinc/copper (TIYR-ETLM-GMTP,VIT A,C-BIOTIN, ORAL) Take by mouth daily. No current facility-administered medications for this visit. Review of Systems Review of Systems Constitutional: Negative for chills, fever and malaise/fatigue. Gastrointestinal: Negative for abdominal pain, nausea and vomiting. Genitourinary: Positive for frequency, hesitancy, urgency, urinating at night, d ifficulty emptying bladder, slow stream and kidney stones. Negative for dysuria, flank pain and hematuria. All other systems reviewed and are negative. LAB: No results found for this or any previous visit (from the past 24 hour(s)). Physical Exam Vitals: 08/10/19 0835 BP: (!) 130/92 Pulse: 96 Weight: 102.1 kg (225 lb) Height: 1.524 m (5') Gen: Alert and oriented Abd: Soft, non-tender, [...] She und erwent a CT scan at [facility] that demonstrated proximal a 1.5 cm left [...] months with Renal US and Stone analysis Kidney stones - Primary Relevant Orders POCT UA w Micro Only Cystoscopy with Stent Pull Cystoscopy with Stent Pull Procedure Note Patient: Caren Patten Age: 68 y.o. : 1950 Diagnosis: Ureteral stone Procedure: Cystoscopy with Stent Pull Surgeon: Darin Huber Despription of procedure: After obtaining informed consent, the patient's genitals were prepped and draped in standard sterile fashion. Viscous lidocaine was instilled per urethra for local anesthetic. The flexible cystoscope was introduced into the bladder. The left ureteral stent was identified and removed with flexible stent graspers Cipro was given for prophylaxis The patient tolerated the procedure and was discharged home in good condition. Return in about 2 months (around 10/11/2019) for Recheck 2months with Renal US. Electronically signed by: Darin Huber 08/10/2019 8:45 AM NSED MARRIAGE AND FAMILY THERAPIST documented in this encounter Plan of Treatment Care Team Description [place] [address] [place] [address] [phone] 02/29/2020 Office Visit Urology Order Schedule Name Type Priority Associated Diag noses Ordered: 08/10/2019 Cystoscopy with Stent Procedure Routine Nephroli thiasis Pull Kidney stones documented as of this encounter Procedures Comments Procedure Name Priority Date/Time Associated Diag nosis POCT UA W MICRO ONLY Routine 08/10/[address] ones 8:50 AM LICENSED MARRIAGE AND FAMILY THERAPIST documented in this encounter Results * POCT UA w Micro Only (08/10/2019 8:50 AM LICENSED MARRIAGE AND FAMILY THERAPIST) Appearance, Urine Glucose Urine 100 (A) Negative mg/dL Bilirubin Urine Negative Negative Ketones Urine Negative Negative Specific 1.030 1.001 - 1.030 [place], UA Hemoglobin Large (A) Negative Urine PH Urine 6.0 5.0 - 8.0 Protein Urine 300 (A) Negative Qual Urobilinogen 0.2 Negative EU/dL Urine Nitrite Urine Negative Negative Leukocyte Small (A) Negative Esterase Microscopic 10-20 RBC/ 3-5 WBC Examination Specimen Urine documented in this encounter Visit Diagnoses Diagnosis Nephrolithiasis Calculus of kidney Kidney stones Calculus of kidney Renal calculus Calculus of kidney documented in this encounter
--- OUTSIDE RECORDS SUMMARY | 2019-11-28 22:18 | XMS REPORT | Encounter Summary ---
Author Author [facility] Organization [facility] Address Unknown Phone Unavailable Care Team Providers Care Solar Sales Name Role Phone Ebony Sharp MD PCP Reason for Visit * Auth/Cert Referred By Contact Referred To Contact Status Reason Specialty Diagnoses / Procedures Diagnoses N20.0 P rocedures CYSTO/URETERO W/LITHOTRIPSY &INDWELL STENT INSRT CYSTOSCOPY, LEFT RETROGRADE PYELOGRAM, LEFT URETEROSCOPY, LASER LITHOTRIPSY, LEFT URETERAL STENT PLACEMENT Encounter Details Care Team Description Date Type Department Medardo Pierce MD [address] [place] [address] [phone] [place] [address] [place] [address] [phone] 08/02/2019 Anesthesia [facility] [address] [place] [address] Anesthesia Record Responsible Anesthesiologist Anesthesia Start Time Anesthesi a Stop Time Procedure Name Medardo Pierce MD 08/02/19 0933 08/02/19 1031 CYSTOSCOPY, LEFT RETROGRADE PYELOGRAM, LEFT URETEROSCOPY, LASER LITHOTRIPSY, LEFT URETERAL STENT EXCHANGE (Left ) Date Time Event Comment 808 Anesthesia 2019 Initial Contact 0824 0933 AN Equip Check 0933 An Start 0933 In room 0934 An Start Data 0935 Pt eval immediately prior to anesthesia 0935 Preoxygenated Prior to Induction 0937 An Induction 0940 An LMA 0941 Spontaneous respirations 0944 PreOp Abx complete 0944 Anesthesia Ready 0945 Time out complete 0945 Procedure start - Primary Case 1024 Procedure stop - Primary case 1024 LMA Removed 1024 an stop data 1027 Out of Room 1031 Handoff I completed my SBAR handoff to the receiving nurse in the PACU/ICU/OB Patient and PACU/ICU/OB nurse edwina morales Discussed patient medical history Discussed procedure Reviewed intraopera tive anesthetic management and issues/concerns Discussed expectation f or early post-procedure period Questions from PACU/ICU/OB team address ed 1031 An Stop Meds Name Total lidocaine 2% (PF) 20mg/mL 100 mg propofol 10mg/mL 200 mg ondansetron 2mg/mL 4 mg phenylepherine 0.1mg/mL 100 mcg ciprofloxacin (CIPRO) IVPB 400 mg 0 mg (premix) ceFAZolin (ANCEF) injection 1 g 2 g lactated ringers infusion 250 mL * Name Cell Saver Blood Intake O2 N2O Air EtSEVO EtISO EtDES EtN2O * No blood administrations on file. Removal Type Details Placement 08/02/19 1024 by Melina Arteaga CRNA Non-Surgic Able to mask ventilate prior to 0953 by serena Airway placement: N/A; Placed By: Peoplesoft Programmer; Site: Oral; Device: LMA; Size: 4; Attempts: 1; Airway Observations: oropharynx clear; Placement Verified By : Capnometry, Auscultation; Removal Date: 08/02/19; Removal Time: 1024 08/02/19 1110 by Zeferino Velarde RN Peripheral Date: 08/02/19; Time: 0810; Size 08/02 0810 by Roosevelt Juarez IV (gauge): 20 G; Orientation: Right; Wayne goetz, RN Location: Forearm; Insertion Attempts: 1; Removal Date: 08/02/19; Removal Time : 1110 documented in this encounter Social History Date [...] Miscellaneous Notes * Anesthesia Postprocedure Evaluation - Medardo Pierce MD - 08/02/2019 11:40 AM MARKETING PROJECT LEAD Anesthesia Post Evaluation Procedure(s):CYSTOSCOPY, LEFT RETROGRADE PYELOGRAM, LEFT URETEROSCOPY, LASER LIT HOTRIPSY, LEFT URETERAL STENT EXCHANGE Surgeon: Darin Huber MD Patient Evaluated in: PACU Patient Participation: complete - patient participated Level of Consciousness: awake and alert , with adequate pain management. Airway Patency: patent Respiratory Status: spontaneous ventilation Cardiovascular Status: hemodynamically stable Postoperative Hydration: euvolemic Postop Nausea/Vomiting: controlled Anesthetic Complications: No Appropriate for discharge from anesthesia care, no apparent anesthesia related c omplication ANE Post Eval Vitals Most Recent Value BP (!) 164/100 filed at 08/02/2019 1110 Pulse 76 filed at 08/02/2019 1110 Temp 36.4 C (97.6 F) filed at 08/02/2019 1110 Resp 18 filed at 08/02/2019 1110 SpO2 95 % filed at 08/02/2019 1110 ETING PROJECT LEAD * Anesthesia Preprocedure Evaluation - Medardo Pierce MD - 08/02/2019 8:13 AM MARKETING PROJECT LEAD Relevant Problems No relevant active problems Anesthesia Evaluation Patient summary, ECG and Labs reviewed No history of anesthetic complications History of alcohol use and tobacco use. Quit smoking. The patient's alcohol con sumption fits the low-risk criteria. Airway Mallampati: III TM distance: <3 FB Neck ROM: full Adequate mouth opening Dental - normal exam Pulmonary - normal exam Breath sounds clear to auscultation, Lung sounds: normal, (+) COPD (uses o2 prn at home) well controlled, confirmed sleep apnea CPAP, (-) recent URI Comment: Home oxygen qhs prn Cardiovascular - normal exam Heart sounds: normal Rhythm: regular Rate: normal Exercise tolerance: poor (+) hypertension, hyperlipidemia, , Comment: IMPRESSION 1. Normal left ventricular systolic function, with an estimated ejection frac tion of 60%. 2. No significant valvular abnormalities. 3. Estimated central venous and mean left atrial pressures are normal. No previous study available for comparison. Neuro/Psych (+) peripheral neuropathy,psychiatric history depression and anxiety GI/Hepatic/Renal (+) chronic renal disease renal calculi (-) GERD Endo/Other (+) poorly controlled type 2 diabetes mellitus using insulin Abdominal (+) obese morbid obesity Obstetrics HEENT - negative ROS (+) cataracts Musculoskeletal - negative ROS (+) arthritis osteoarthritis, chronic pain, Hematology/Oncology Poor dentition Anesthesia Plan ASA 3 Type: general () Plan to include: IV induction and supraglottic airway device Plan discussed with ATTENDING UROLOGIST. Anesthetic plan and risks discussed with patient. Use of blood products discussed with patient whom did not consent to blood produ cts. Special considerations: [employer]. Post-operative analgesia: routine analgesia and antiemetics Recovery plan: PACU Risk factors for PONV: female and non smoker PONV Risk: moderate Notes LMA ok as NPO per guidelines and no active reflux or nausea. Risks/benefits/alternatives discussed with patient and all questions sought and answered. Patient wishes to proceed. SASHA precautions and strong pre-oxygenation please. Poor dentition ETING PROJECT LEAD documented in this encounter Plan of Treatment Care Team Description [place] [address] [place] [address] [phone] 02/29/2020 Office Visit Urology documented as of this encounter Visit Diagnoses Not on filedocumented in this encounter Administered Medications Action Date Dose Rate Site Medication Order MAR Action 08/02/2019 9:35 AM MARKETING PROJECT LEAD 2 g ceFAZolin (ANCEF) injection Given As needed, Starting Wed08/02/19 at 0935, Anesthesia Intra-op 08/02/2019 9:37 AM MARKETING PROJECT LEAD 100 mg lidocaine (pf) (XYLOCAINE-MPF) 20 mg/mL Given (2 %) injection Intravenous, As needed, Starting Wed08/02/19 at 0937, Anesthesia Intra-op 08/02/2019 10:18 AM MARKETING PROJECT LEAD 4 mg ondansetron (ZOFRAN) injection Given Intravenous, As needed, Starting Wed08/02/19 at 1018, Anesthesia Intra-op 08/02/2019 10:07 AM MARKETING PROJECT LEAD 100 mcg phenylephrine HCl in 0.9% NaCl Given (NEOSYNEPHRINE) 1 mg/10 mL (100 mcg/mL) injection Intravenous, As needed, Starting Wed08/02/19 at 1007, Anesthesia Intra-op 08/02/2019 9:38 AM MARKETING PROJECT LEAD 200 mg propofol (DIPRIVAN) injection Given Intravenous, As needed, Starting Wed08/02/19 at 0938, Anesthesia Intra-op documented in this encounter
--- OUTSIDE RECORDS SUMMARY | 2019-11-28 22:18 | XMS REPORT | Encounter Summary ---
Author Author [facility] Organization [facility] Address Unknown Phone Unavailable Care Team Providers Care Card Placer Name Role Phone Ebony Sharp MD PCP Reason for Visit * Auth/Cert Referred By Contact Referred To Contact Status Reason Specialty Diagnoses / Procedures Diagnoses N20.0 P rocedures CYSTO/URETERO W/LITHOTRIPSY &INDWELL STENT INSRT CYSTOSCOPY, LEFT RETROGRADE PYELOGRAM, LEFT URETEROSCOPY, LASER LITHOTRIPSY, LEFT URETERAL STENT PLACEMENT Encounter Details Care Team Description [place] [address] [place] [address] [phone] CYSTOSCOPY, LEFT RETROGRADE PYELOGRAM, L EFT URETEROSCOPY, LASER LITHOTRIPSY, LEFT URETERAL STENT EXCHANGE 08/02/[address] [facility] [address] [place], [place] [id number] Social History Date Tobacco Use Types Packs/Day [...] Comments Vital Sign 164/100 08/02/2019 11:10 AM ALARM FIELD TECHNICIAN Blood Pressure 76 08/02/2019 11:10 AM ALARM FIELD TECHNICIAN Pulse 36.4 C (97.6 F) 08/02/2019 11:10 AM ALARM FIELD TECHNICIAN Temperature 18 08/02/2019 11:10 AM ALARM FIELD TECHNICIAN Respiratory Rate 95% 08/02/2019 11:10 AM ALARM FIELD TECHNICIAN Oxygen Saturation - - Inhaled Oxygen Concentration 103 kg (227 lb) 08/02/2019 8:03 AM ALARM FIELD TECHNICIAN Weight 152.4 cm (5') 08/02/2019 8:03 AM ALARM FIELD TECHNICIAN Height 44.33 08/02/2019 8:03 AM ALARM FIELD TECHNICIAN Body Mass Index documented in this encounter Discharge Instructions * Pre-Procedure Instructions* Rosy Hart RN - 07/28/2019 1:39 PM ALARM FIELD TECHNICIAN Current Outpatient Medications Medication Sig Note: albuterol [...] before surge ry as scheduled insulin syringe ([employer] ULTRA-FINE) 0.3 mL 31 gauge x 5/16 [...] not picked up prescription vit A/vit C/biotin/zinc/copper ([id number],VIT A,C-BIOTIN, ORAL) Take by mouth daily. Note:has stopped Preoperative phone call completed with patient. Medications reviewed. Instructio ns for surgery reviewed with patient stating understanding to instructions given . Previously had OR 06/28/19. No change in health condition. Patient will plan to proceed with surgery as scheduled. Family member to be present for surgery, transportation and care after. M FIELD TECHNICIAN * Attachments The following attachments cannot be sent through Care Everywhere.* Kidney Stones, Treating: Ureteroscopic Stone Removal ([place]izen [place]) * Stents, Ureteral ([place]izen [place]) documented in this encounter Medications at Time [...] A/vit Take by mouth 0 C/biotin/zinc/copper daily. ([id number],VIT A,C-BIOTIN, ORAL) 08/26/2017 08/28/2019 albuterol (VENTOLIN HFA) [...] Darin Huber MD - 08/02/2019 8:50 AM ALARM FIELD TECHNICIAN [facility] UROLOGY Pre-Op NOTE Patient: Isiah Benítez [...] Refusal of blood transfusions as patient is Amish Sleep apnea CPAP use Type 2 diabetes [...] STENT PLACEMENT; Surgeon: Darin Huber MD; Location: [facility] Main OR; Service: Urology; Laterality: Left; HAND SURGERY Left 03/09/2019 CTR HERNIA REPAIR HYSTERECTOMY OOPHORECTOMY REMOVAL, HARDWARE, FOOT OR ANKLE Left 04/09/2017 Procedure: LEFT ANKLE REMOVAL OF HARDWARE WITH REVISION LEFT ANKLE ARTHRODESIS; Surgeon: Adelaida Olivas MD; Location: [facility] Main OR; Service: Orthopedics; Later ality: Left; REPAIR, INCISIONAL HERNIA, LAPAROSCOPIC, USING MESH N/A 05/25/2018 Procedure: LAPAROSCOPIC INCISIONAL HERNIA REPAIR WITH MESH; Surgeon: Medardo Tate MD; Location: [facility] Main OR; Service: General; Laterality: N/A; TONSILLECTOMY [...] tablet (40 mg total) by mouth jcarlos muhammad. (Patient taking differently: Take 40 mg by [...] 08/01/2019 at Unknown time vit A/vit C/biotin/zinc/copper ([id number],VIT A,C-BIOTIN, ORAL) Take by mouth daily. Past [...] file Gets together: Not on file Attends sikhism service: Not on file Active member of [...] 06/13/2019 02:29 PM Negative Negative Final Specific [place], UA Date/Time Value Ref Range Status 07/14/2019 [...] schedule stent removal in clinic in 1-2wks M FIELD TECHNICIAN documented in this encounter Miscellaneous Notes * Operative Note - Darin Huber MD - 08/02/2019 8:53 AM ALARM FIELD TECHNICIAN Brief Operative Note Isiah Benítez 08/02/2019 No case tracking events are documented in the log. Pre-op Diagnosis: N20.0 Post-op Diagnosis: Left N20.o Procedure: CYSTOSCOPY, LEFT RETROGRADE PYELOGRAM, LEFT URETEROSCOPY, LASER LITHOTRIPSY, LEF T URETERAL STENT PLACEMENT, Left Surgeon(s) and Role: * Darin Huber MD - Primary Anesthesia Type: General Staff: Forming Press Operator: Juventino Rubio RN Scrub Person: Tonja Robb [...] I began the procedure inserting the 21 Mauritian rigid cystoscope transurethral wit hout difficulty. Once into the bladder identified the left ureteral stent. I teresa coy used an alligator forceps to grasp the stent and pull this out to the urethr al meatus without difficulty. This was cannulated then with a sensor wire. Whi ch was passed up the renal pelvis under fluoroscopic guidance. I followed this with a 5 Mauritian open-ended stent over the sensor wire. A [...] Huber MD Date: 08/02/2019 Time: 8:53 AM M FIELD TECHNICIAN documented in this encounter Plan of Treatment Care Team Description Date [place] [address] [place] [id number] [phone] 02/29/2020 Office Visit Urology documented as of this encounter Procedures Comments Procedure Name Priority Date/Time Associated Diag nosis FL RETROGRADE UROGRAPHY Routine 08/02/2019 IN OR 10:52 AM ALARM FIELD TECHNICIAN STONE ANALYSIS Timed 08/02/2019 10:21 AM ALARM FIELD TECHNICIAN CYSTOSCOPY, RETROGRADE 08/02/2019 N20.0 PYELOGRAM, URETEROSCOPY, 9:33 AM ALARM FIELD TECHNICIAN LASER LITHOTRIPSY, WITH URETERAL STENT PLACEMENT Special Needs HOLMIUM LASER ORDERED PER RADHA bsBIOMED NOTIFIEDC- ARMO2 PER NC PRN, NIGHT PRIOR UROLOGY OR 06/28/19OSA WITH CPAP USE GLUCOSE POC Routine 08/02/2019 8:56 AM ALARM FIELD TECHNICIAN GLUCOSE POC Routine 08/02/2019 7:46 AM ALARM FIELD TECHNICIAN GLUCOSE POC Routine 08/02/2019 7:42 AM ALARM FIELD TECHNICIAN documented in this encounter Results * FL Retrograde Urography in OR (08/02/2019 10:52 AM ALARM FIELD TECHNICIAN) Specimen Impressions Performed At Image demonstrates radiopaque catheter overlying left abdomen with MCKESSON minimal contrast overlying dilated left collecting system suggesting mild left renal caliectasis. Please see procedure note for additiona l details. READING SITE: [facility] NOTE: Parts of this report were generated wit [employer]ana voice recognition software. Chooos Imagin2010;24(4):724-8. Narrative Performed At Patient: ISIAH BENÍTEZ Sex#: F #: [id number] Jose #: [id number] Location: [facility] MAIN OR NONE Procedure Requested: [id number] FL RETRO GRADE UROGRAPHY IN OR Reason [...] Rad Results In - 08/02/2019 11:07 AM ALARM FIELD TECHNICIAN Patient: ISIAH BENÍTEZ Sex#: F #: [id number] Jose#: [id number] Location: [facility] MAIN OR NONE Procedure Requested: [id number] FL RETROGRADE UROGRAPHY IN OR Reason for [...] procedure note for additional details. READING SITE: [facility] NOTE: Parts of this report were generated with voice recognition software. J Digit Imagin2010;24(4):724-8. Performing Organization Address City/[facility] Ph one Number LEVI * Stone Analysis Urinary (08/02/2019 10:21 AM ALARM FIELD TECHNICIAN) Stone Color Brown [facility] Stone Size CommentComment: [...] photograph will follow via computer, mail, or vocational adviser delivery. Stone Comment Comment [facility] Comment: Physician questions regarding Calculi Analysis contact [facility] at: [phone]. Disclaimer : Comment [facility] Comment: This test was developed and its performance characteristics determined by [facility]. It has not been cleared or approved by the Food and Drug Administration. Performed at: - [facility] [id number] Geomat[employer] Professor: Seamus Infante MD, Phone: [phone] Specimen Stone - Left Ureter Performing Organization Address [facility] one Number [facility] [address] [place], [place] [address] [facility] Interface [id number] [place] [address] [place] [address] * GLUCOSE POC (08/02/2019 8:56 AM ALARM FIELD TECHNICIAN) Only the most recent of 3 results within the time period is included. Glucose POC 237 (H) 70 - 100 mg/dL [facility] Specimen Performing Organization Address City/[facility] Ph one Number [facility] [address] [place] [address] [facility] [address] [employer] [place] [address], [facility] documented in this encounter Visit Diagnoses Not on filedocumented in this encounter Administered Medications Action Date Dose Rate Site Medication Order MAR Action albuterol (ACCUNEB) 2.5 mg/3 mL (0.083 %) nebulizer solution 2.5 mg 2.5 mg, Nebulization, Every 4 hours PRN , wheezing, Starting Wed08/02/19 at 1032 , PACU (only) 08/02/2019 8:27 AM ALARM FIELD TECHNICIAN 20 mg famotidine (PEPCID) injection 20 mg Given 20 mg, Intravenous, Once, Wed08/02/19 at 0830, For 1 dose, Pre-op 08/02/2019 8:27 AM ALARM FIELD TECHNICIAN 25 mcg fentaNYL (SUBLIMAZE) injection 25 mcg Given 25 mcg, Intravenous, Once, Wed08/02/19 at 0845, For 1 dose, Pre-op, Administer over 2 minutes; max dose for IVP is 2 mcg/kg. Note: Limit does not apply to patients who may be tolerant to opioid therapy or on continuous IV or PO opiat e therapy., 08/02/2019 10:39 AM ALARM FIELD TECHNICIAN 50 mcg fentaNYL (SUBLIMAZE) injection 25-50 mcg [...] anesthesia STAT if administered., 08/02/2019 8:33 AM ALARM FIELD TECHNICIAN 5 Units insulin regular (HumuLIN R) injection 5 Given Units 5 Units, Intravenous, Once, Indications : hyperglycemia, Wed08/02/19 at 0845, Fo r 1 dose, Pre-op 08/02/2019 10:27 AM ALARM FIELD TECHNICIAN 10 mL iohexol (OMNIPAQUE) 150 mg/mL (iohexol Given 300 mg/ml mixed 1: with normal saline) As needed, Starting Wed08/02/19 at 1027, Intra-op lactated ringers infusion 50 mL/hr, Intravenous, Continuous, Starting Wed08/02/19 at 1100, For 48 hours, PACU (only) 08/02/2019 8:27 AM ALARM FIELD TECHNICIAN 50 mL/hr 50 mL/hr lactated ringers infusion New Bag 50 mL/hr, Intravenous, Continuous, Starting Wed08/02/19 at 0830, For 48 hours, Pre-op 08/02/2019 10:27 AM ALARM FIELD TECHNICIAN 1 application Operativ e Site lidocaine (XYLOCAINE) 2 % urethral jelly Given As needed, Starting Wed08/02/19 at 1027, Intra-op metoclopramide (REGLAN) injection 5 mg 5 mg, Intravenous, Every 6 hours PRN, nausea/vomiting (2nd line), Starting We 08/02/19 at 1032, PACU (only) metoclopramide (REGLAN) [...] hours PRN, nausea/vomiting (1st line), Starting We d 08/02/19 at 1032, PACU (only), Administer if patient does not have IV access and refuses IM injection., 08/02/2019 9:55 AM ALARM FIELD TECHNICIAN 3,000 mL Operativ e Site sodium chloride irrigation 3000 mL Given (bladder) (NS) 0.9 % As needed, Starting Wed08/02/19 at 0954, Intra-op 3,000 mL Operative Site Given 08/02/2019 9:54 AM ALARM FIELD TECHNICIAN 08/02/2019 9:54 AM ALARM FIELD TECHNICIAN 1,000 mL Operativ e Site sterile water irrigation irrigation Given solution As needed, Starting Wed08/02/19 at 0954, Intra-op documented in this encounter
--- OUTSIDE RECORDS SUMMARY | 2019-11-28 22:18 | XMS REPORT | Encounter Summary ---
Author Author [facility] Organization [facility] Address Unknown Phone Unavailable Care Team Providers Care Impregnating Machine Operator Name Role Phone Ebony Sharp MD PCP Reason for Visit * Reason Comments Other Encounter Details Care Team Description Date Type Department Ebony Sharp MD [address] [facility] [address] [place] [address] [phone] Other 08/25/2019 Refill [facility] (walk-in clinic) [address] [facility] [address] [place], [place] [id number] Social History Date Tobacco Use Types Packs/Day [...] Description Date [place] [address] [place] [address] [phone] 02/29/2020 Office Visit Urology documented as of this encounter Visit Diagnoses Diagnosis Chronic obstructive pulmonary disease, unspecified COPD type (HCC) documented in this encounter
--- OUTSIDE RECORDS SUMMARY | 2019-11-28 22:18 | XMS REPORT | Encounter Summary ---
Author Author [facility] Organization [facility] Address Unknown Phone Unavailable Care Team Providers Care Software Engineering Associate Manager Name Role Phone Ebony Sharp MD PCP Reason for Visit * Reason Comments Chest pain chest pain, dull constant pressure, 8/10 x 1 week. center of chest, radiates through back. soa also. Shortness of Breath Cough productive green cough. * Auth/Cert Referred By Contact Referred To Contact Status Reason Specialty Diagnoses / Procedures Diagnoses Kidney stone Pyelonephritis Sepsis, due to unspecified organism, unspecified whether acute organ dysfunction present (HCC) Encounter Details Care Team Description Date Type Department Celso Palma, DO [address] [place] [address] [phone] Acute bronchitis, unspecified organism ( Primary Dx); COPD exacerbation (HCC) 08/28/2019 Emergency [facility] [address] [place] [address] Social History Date Tobacco Use Types Packs/Day [...] Signs Reading Time Taken Comments Vital Sign 161/89 08/28/2019 4:15 PM ELECTRIC CLOCK MECHANIC Blood Pressure 94 08/28/2019 3:39 PM ELECTRIC CLOCK MECHANIC Pulse 37.3 C (99.2 F) 08/28/2019 1:50 PM ELECTRIC CLOCK MECHANIC Temperature 18 08/28/2019 3:39 PM ELECTRIC CLOCK MECHANIC Respiratory Rate 94% 08/28/2019 4:15 PM ELECTRIC CLOCK MECHANIC Oxygen Saturation - - Inhaled Oxygen Concentration 102.1 kg (225 lb) 08/28/2019 11:11 AM ELECTRIC CLOCK MECHANIC Weight - - Height 43.94 08/10/2019 8:35 AM ELECTRIC CLOCK MECHANIC Body Mass Index documented in this encounter Discharge Instructions * Attachments The following attachments cannot be sent through Care Everywhere.* COPD FLARE (EQUATORIAL GUINEAN) * Bronchitis, Acute (Fijian) documented in this encounter Medications at Time [...] A/vit Take by mouth 0 C/biotin/zinc/copper daily. ([id number],VIT A,C-BIOTIN, ORAL) 08/28/2019 09/07/2019 azithromycin (ZITHROMAX) Take 1 tablet 6 tablet 0 250 MG tablet (250 mg total) by mouth daily for 6 doses. 2 tablets PO now and then 1 tablet PO daily. 08/25/2019 10/13/2019 BREO ELLIPTA 200-25 INHALE [...] capsule CAPSULES BY MOUTH THREE TIMES DAILY 08/28/2019 09/07/2019 HYDROcodone-acetaminophen Take 1 tablet 20 tablet 0 (NORCO) 5-325 mg per by mouth tablet every 6 (six) hours as needed for pain. Max Daily Dose: 4 tablets 06/17/2019 09/23/2019 insulin glargine (LANTUS ADMINISTER 20 10 mL 5 U-100 INSULIN) 100 UNITS UNDER unit/mL injection THE SKIN EVERY NIGHT. E11.9 07/18/2019 10/30/2019 metoprolol tartrate TAKE 1 TABLET 180 tablet 0 (LOPRESSOR) 100 MG tablet BY MOUTH TWICE DAILY 08/28/2019 09/07/2019 predniSONE (DELTASONE) 20 Take 2 10 tablet 0 MG tablet tablets (40 mg total) by mouth daily. documented as of this encounter ED Notes * Celso Palma DO - 08/28/2019 2:39 PM ELECTRIC CLOCK MECHANIC 08/28/2019 [facility] History Chief Complaint Patient presents with Chest pain chest pain, dull constant pressure, 8/10 x 1 week. center of chest, radiates through back. soa also. Shortness of Breath Cough productive green cough. 69-year-old female with a history of COPD presents with persistent cough and now lower chest wall pain that is worse with coughing over the past week. Patient states it all started after she had URI symptoms following her daughter having t he same URI symptoms. Patient has tried Mucinex and DayQuil with no relief. Sh chirag is not currently on any inhalers or steroids or antibiotics. She is coughing up green sputum and has had intermittent fevers and chills. The history is provided by the patient. Chest pain Chest pain location: bilateral lower chest. Pain quality: aching Pain radiates to: Does not radiate Pain severity: Moderate Onset quality: Gradual Duration: 1 week Timing: Constant Progression: Unchanged Chronicity: New Context: at rest Relieved by: Rest Worsened by: Coughing Ineffective treatments: None tried Associated symptoms: cough and shortness of breath Risk factors: diabetes mellitus, obesity and smoking Risk factors: no high cholesterol, no hypertension and not male Shortness of Breath Associated symptoms: chest pain and cough Cough Associated symptoms: chest pain and shortness of breath Past Medical History: Diagnosis Date Acute bleeding 08/08/2016 Allergic rhinitis Anxiety Bronchitis, chronic ([facility]) Cataract 2011, 2012 bilat cateract surgery Chronic pain disorder back, ribs, and ankle. COPD (chronic obstructive pulmonary disease) ([facility]) Depression Draining postoperative wound 08/08/2016 Endometriosis Essential hypertension Fractures [address] in Left ankle MATA (generalized anxiety disorder) 09/24/2015 Hernia of abdominal cavity Kidney stone Mixed hyperlipidemia 09/24/2015 Morbid obesity due to excess calories ([facility]) 07/10/2016 On home oxygen therapy 2L - usually needs if has an exerbation of COPD, or resp illness SASHA on CPAP Osteoarthritis Refusal of blood transfusions as patient is Pentec[employer]al Sleep apnea CPAP use Type 2 diabetes mellitus with hyperglycemia, with long-term current use of i nsulin ([facility]) 06/29/2016 Urinary calculi Urinary incontinence Urinary tract [...] STENT PLACEMENT; Surgeon: Darin Huber MD; Location: [facility] Main OR; Service: Urology; Laterality: Left; CYSTOSCOPY, RETROGRADE PYELOGRAM, URETEROSCOPY, LASERLITHOTRIPSY, WITH URETE RAL STENT PLACEMENT Left 08/02/2019 Procedure: CYSTOSCOPY, LEFT RETROGRADE PYELOGRAM, LEFT URETEROSCOPY, LASER LITH OTRIPSY, LEFT URETERAL STENT EXCHANGE; Surgeon: Darin Huber MD; Location: [facility] Main OR; Service: Urology; Laterality: Left; HAND SURGERY Left 03/09/2019 [facility] HERNIA REPAIR HYSTERECTOMY OOPHORECTOMY REMOVAL, HARDWARE, FOOT OR ANKLE Left 04/09/2017 Procedure: LEFT ANKLE REMOVAL OF HARDWARE WITH REVISION LEFT ANKLE ARTHRODESIS; Surgeon: Adelaida Olivas MD; Location: [facility] Main OR; Service: Orthopedics; Later ality: Left; REPAIR, INCISIONAL HERNIA, LAPAROSCOPIC, USING MESH N/A 05/25/2018 Procedure: LAPAROSCOPIC INCISIONAL HERNIA REPAIR WITH MESH; Surgeon: Medardo Tate MD; Location: [facility] Main OR; Service: [...] rarely Drug use: No Review of Systems Respiratory: Positive for cough and shortness of breath. Cardiovascular: Positive for chest pain. All other systems reviewed and are negative. Physical Exam BP (!) 159/100 (BP Location: Left arm) | Pulse 95 | Temp 99.2 F (37.3 C) ( Oral) | Resp 19 | Wt 102.1 kg (225 lb) | SpO2 90% | BMI 43.94 kg/m Physical Exam Vitals signs and nursing note reviewed. Constitutional: General: She is not in acute distress. Appearance: She is well-developed. She is not [...] is soft. Tenderness: There is no tenderness. Musculoskeletal: General: No tenderness. Skin: General: Skin is warm and dry. Findings: No erythema or rash. Neurological: Mental Status: She is alert and oriented to person, place, and time. ED Course Procedures Vitals: 08/28/19 1111 08/28/19 1350 BP: (!) 169/114 (!) 159/100 Pulse: 83 95 Resp: 20 19 Temp: 98 F (36.7 C) 99.2 F (37.3 C) SpO2: 90% 90% Weight: 102.1 kg (225 lb) O2 saturation O2 saturation is 98 % On Room Air . Interpretation: normal 2:41 PM [facility] Results for orders placed or performed during the hospital encounter of 08/28/19 Complete Blood Count Result Value Ref Range WBC 9.79 4.00 - 11.00 TH/uL RBC 4.42 4.00 - 5.00 MIL/uL Hemoglobin 14.3 12.0 - 15.0 g/dL Hematocrit 43 36 - 45 % MCV 97 80 - 99 fL MCH 32 27 - 34 pg MCHC 33 32 - 36 % RDW 13.0 11.5 - 14.5 % Platelet Count 151 140 - 400 TH/uL MPV 9.9 9.4 - 12.3 fL Nucleated RBCs 0 0 - 0 /100 Basic Metabolic Panel Result Value Ref Range Sodium 136 133 - 147 MEQ/L Potassium 4.1 3.5 - 5.3 MEQ/L Chloride 100 96 - 112 MEQ/L Carbon Dioxide 29 20 - 32 MEQ/L Anion Gap 7 5 - 17 Calcium 9.0 8.4 - 10.5 mg/dL Glucose 260 (H) 70 - 100 mg/dL Blood Urea Nitrogen 16 7 - 26 mg/dL Creatinine 1.0 0.4 - 1.1 mg/dL eGFR Female AA 66 60 - 200 mL/min/1.73sq m eGFR Female Non-AA 55 (L) 60 - 200 mL/min/1.73sq m Electrocardiogram (ECG) Result Value Ref Range QRSd 102 QT 396 QTC 446 ECGHR 76 ECGPR 152 RADIOLOGY XR Chest single view frontal Final Result Stable bandlike opacity in the left midlung zone likely fibrosis/scarring. No discrete focal consolidation. READING SITE: [facility] DIAGNOSIS Problem List Items Addressed This Visit Respiratory COPD exacerbation (HCC) Relevant Medications ipratropium-albuterol (DUO-NEB) 0.5-3 mg/3 mL nebulizer solution 3 mL (Complete d) albuterol (PROAIR/PROVENTIL/VENTOLIN) 90 mcg/actuation HFA inhaler Other Visit Diagnoses Acute bronchitis, unspecified organism - Primary Relevant Medications ipratropium-albuterol (DUO-NEB) 0.5-3 mg/3 mL nebulizer solution 3 mL (Complete d) albuterol (PROAIR/PROVENTIL/VENTOLIN) 90 mcg/actuation HFA inhaler ED Clinical Impression 1. Acute bronchitis, unspecified organism 2. COPD exacerbation (HCC) Patient ED Dispo None Celso Palma DO 08/30/19 1203 TRIC CLOCK MECHANIC documented in this encounter Plan of Treatment Care Team Description Date [place] [address] [place] [address] [phone] 02/29/2020 Office Visit Urology documented as of this encounter Procedures Comments Procedure Name Priority Date/Time Associated Diag nosis XR CHEST SINGLE VIEW STAT 08/28/2019 FRONTAL 3:12 PM ELECTRIC CLOCK MECHANIC COMPLETE BLOOD COUNT STAT 08/28/2019 3:00 PM ELECTRIC CLOCK MECHANIC BASIC METABOLIC PANEL STAT 08/28/2019 3:00 PM ELECTRIC CLOCK MECHANIC ECG STAT 08/28/2019 11:14 AM ELECTRIC CLOCK MECHANIC documented in this encounter Results * XR Chest single view frontal (08/28/2019 3:12 PM ELECTRIC CLOCK MECHANIC) Specimen Impressions Performed At Stable bandlike opacity in the left midlung zone like jb SIMS fibrosis/scarring. No discrete focal co nsolidation. READING SITE: [facility] Narrative Performed At Patient: ISIAH BENÍTEZ Sex#: F #: [id number] Jose #: [id number] Location: [facility] ED SED- Procedure Requested: [id number] XR CHEST SINGLE VIEW FRONTAL Reason for Exam: cough Exam Ordered: 08/28/2019 143 9 Exam Date/Time: 08/28/2019 1512 Begin exam date/time: 08/28/2019 1446 XR CHEST SINGLE VIEW FRONTAL INDICATION: cough. COMPARISON STUDY: 02/11/2019. FINDINGS: Life Support Devices: None. Lungs: Stable bandlike opacity in the l eft midlung zone likely fibrosis/scarring. Pleura: No pleural effusion or pneumoth orax. Heart and Mediastinum: Stable heart and mediastinum. Bones and soft tissues: Stable regional skeleton. Procedure Note Interface, Rad Results In - 08/28/2019 3:26 PM ELECTRIC CLOCK MECHANIC Patient: ISIAH BENÍTEZ Sex#: F #: [id number] Jose#: [id number] Location: [facility] ED SED- Procedure Requested: [id number] XR CHEST SINGLE VIEW FRONTAL Reason for Exam: cough Exam Ordered: 08/28/2019 1439 Exam Date/Time: 08/28/2019 1512 Begin exam date/time: 08/28/2019 1446 XR CHEST SINGLE VIEW FRONTAL INDICATION: cough. COMPARISON STUDY: 02/11/2019. FINDINGS: Life Support Devices: None. Lungs: Stable bandlike opacity in the left midlung zone likely fibrosis/scarring. Pleura: No pleural effusion or pneumothorax. Heart and Mediastinum: Stable heart and mediastinum. Bones and soft tissues: Stable regional skeleton. IMPRESSION Stable bandlike opacity in the left midlung zone likely fibrosis/scarring. No discrete focal consolidation. READING SITE: [facility] Performing Organization Address City/State/Zipcode Ph one Number LEVI * Basic Metabolic Panel (08/28/2019 3:00 PM ELECTRIC CLOCK MECHANIC) Sodium 136 133 - 147 MEQ/L [facility] Potassium 4.1 3.5 - 5.3 MEQ/L [facility] [place] [facility] Chloride 100 96 - 112 MEQ/L [facility] [place] [facility] Carbon Dioxide 29 20 - 32 MEQ/L [facility] [place] [facility] Anion Gap 7 5 - 17 [facility] [place] [facility] Calcium 9.0 8.4 - 10.5 mg/dL [facility] [place] [facility] Glucose 260 (H) 70 - 100 mg/dL [facility] [place] [facility] Blood Urea 16 7 - 26 mg/dL [facility] Nitrogen [facility] Creatinine 1.0 0.4 - 1.1 mg/dL [facility] eGFR Female AA 66 60 - 200 [facility] mL/min/1.73sq m [facility] eGFR Female 55 (L) 60 - 200 [facility] Non-AA mL/min/1.73sq [facility] Specimen Blood Performing Organization Address City/State/Zipcode Ph one Number [facility] [address] [facility] [place] [address] [place] [facility] [place] [address] [facility] Rachel [place] [address] [place] [facility] * Complete Blood Count (08/28/2019 3:00 PM ELECTRIC CLOCK MECHANIC) WBC 9.79 4.00 - 11.00 TH/uL [facility] [facility] RBC 4.42 4.00 - 5.00 MIL/uL [facility] Hemoglobin 14.3 12.0 - 15.0 g/dL [facility] [place] [facility] Hematocrit 43 36 - 45 % [facility] [place] [facility] MCV 97 80 - 99 fL [facility] [place] [facility] MCH 32 27 - 34 pg [facility] [place] [facility] MCHC 33 32 - 36 % [facility] [place] [facility] RDW 13.0 11.5 - 14.5 % [facility] [place] [facility] Platelet Count 151 140 - 400 TH/uL [facility] MPV 9.9 9.4 - 12.3 fL [facility] [place] [facility] Nucleated RBCs 0 0 - 0 /100 [facility] Specimen Blood Performing Organization Address City/State/[facility] Ph one Number [facility] [address] [facility] [place] [address] [place] [facility] [address] [facility] [place] [address] [place] [facility] * Electrocardiogram (ECG) (08/28/2019 11:14 AM ELECTRIC CLOCK MECHANIC) QRSd 102 TRACEMASTER QT 396 TRACEMASTER QTC 446 TRACEMASTER ECGHR 76 TRACEMASTER ECGPR 152 TRACEMASTER Specimen Narrative [facility]formed At [facility] ED Test Date: 2019-08-28 Pat Name: ISIAH BENÍTEZ Department: ERS Room: Gender: Female Activities Coordinator: [id number] : 1950 Requested By: NIMO OCHOA Order Number: [id number] Reading MD: Measurements Intervals [place] Rate: 76 P: 58 OK: 152 QRS: 65 QRSD: 102 T: 59 QT: 396 QTc: 446 Interpretive Statements SINUS RHYTHM Procedure Note Interface, External Ris In - 08/28/2019 11:15 AM ELECTRIC CLOCK MECHANIC [facility] ED Test Date: 2019-08-28 Pat Name: ISIAH BENÍTEZ Department: ERS Room: Gender: Female Activities Coordinator: [id number] : 1950 Requested By: NIMO OCHOA Order Number: [id number] Reading MD: Measurements Intervals [place] Rate: 76 P: 58 OK: 152 QRS: 65 QRSD: 102 T: 59 QT: 396 QTc: 446 Interpretive Statements SINUS RHYTHM Performing Organization Address City/State/[facility] Ph one Number TRACEMASTER documented in this encounter Visit Diagnoses Diagnosis Acute bronchitis, unspecified organism COPD exacerbation (HCC) Obstructive chronic bronchitis with exa cerbation documented in this encounter Administered Medications Action Date Dose Rate Site Medication Order MAR Action 08/28/2019 4:05 PM ELECTRIC CLOCK MECHANIC 50 mcg fentaNYL (SUBLIMAZE) injection 50 mcg Given 50 mcg, Intravenous, Once, Wed08/28/19 a t 1506, For 1 dose, Administer over 2 minutes; max dose for IVP is 2 mcg/kg. Note: Limit does not apply to patients who may be tolerant to opioid therapy o r on continuous IV or PO opiate therapy., 08/28/2019 3:39 PM ELECTRIC CLOCK MECHANIC 3 mL ipratropium-albuterol (DUO-NEB) 0.5-3 Given mg/3 mL nebulizer solution 3 mL 3 mL, Inhalation, Once, Wed08/28/19 at 1506, For 1 dose 08/28/2019 2:56 PM ELECTRIC CLOCK MECHANIC 125 mg methylPREDNISolone sod suc(PF) Given (Solu-MEDROL) injection 125 mg 125 mg, Intravenous, Once, Wed08/28/19 a t 1440, For 1 dose documented in this encounter"
--- OUTSIDE RECORDS SUMMARY | 2019-11-28 22:18 | XMS REPORT | Encounter Summary ---
Author Author [facility] Organization [facility] Address Unknown Phone Unavailable Care Team Providers Care Data Operations Director Name Role Phone Ebony Sharp MD PCP Encounter Details Care Team Description [place] [address] [place] [address] [phone] 07/19/2019 Orders Only [facility] [address] [place] [address] Social History Date Tobacco Use Types Packs/Day [...] Description [place] [address] [place] [address] [phone] 02/29/2020 Office Visit Urology documented as of this encounter Visit Diagnoses Not on filedocumented in this encounter
--- OUTSIDE RECORDS SUMMARY | 2019-11-28 22:18 | XMS REPORT | Encounter Summary ---
Author Author [facility] Organization [facility] Address Unknown Phone Unavailable Care Team Providers Care Tie Up Worker Name Role Phone Ebony Sharp MD PCP Reason for Visit * Reason Comments Medication Refill Encounter Details Care Team Description Date Type Department Fiorella Jackson RN Medication Refill 07/19/2019 Refill [facility] [address] [place] [address] Social History Date Tobacco Use Types Packs/Day [...] encounter Miscellaneous Notes * Telephone Encounter - Darin Huber MD - 07/24/2019 3:20 PM INDUSTRIAL TECHNOLOGY EDUCATION TEACHER Patient has had multiple Rxs for pain medications STRIAL TECHNOLOGY EDUCATION TEACHER * Telephone Encounter - Fiorella Jackson RN - 07/24/2019 1:59 PM INDUSTRIAL TECHNOLOGY EDUCATION TEACHER This patient is calling back for refill of her pain medication. Please adviseteresa ! STRIAL TECHNOLOGY EDUCATION TEACHER * Telephone Encounter - Marleen Arellano CMA - 07/19/2019 1:47 PM INDUSTRIAL TECHNOLOGY EDUCATION TEACHER Patient notified to pickup driver Macrobid STRIAL TECHNOLOGY EDUCATION TEACHER * Telephone Encounter - Marleen Arellano CMA - 07/19/2019 1:47 PM INDUSTRIAL TECHNOLOGY EDUCATION TEACHER ----- Message from Darin Huber MD sent at 07/19/2019 1:26 PM INDUSTRIAL TECHNOLOGY EDUCATION TEACHER ----- Patient has positive urine culture. I Rx'd macrobid. Please notify patient. STRIAL TECHNOLOGY EDUCATION TEACHER * Telephone Encounter - Fiorella Jackson RN - 07/19/2019 9:40 AM INDUSTRIAL TECHNOLOGY EDUCATION TEACHER Patient calling requesting refill of pain medication, please sign if indicated. Thanks ! STRIAL TECHNOLOGY EDUCATION TEACHER documented in this encounter Plan of Treatment Care Team Description Date [place] [address] [address] [phone] 02/29/2020 Office Visit Urology documented as of this encounter Visit Diagnoses Not on filedocumented in this encounter
--- OUTSIDE RECORDS SUMMARY | 2019-11-28 22:18 | XMS REPORT | Encounter Summary ---
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 [place], [place] [id number] Social History Date Tobacco Use Types Packs/Day [...] Comments Vital Sign 135/92 09/07/2019 12:11 PM PAPER STRIPPER Blood Pressure 79 09/07/2019 1:25 PM PAPER STRIPPER Pulse 36.7 C (98.1 F) 09/07/2019 12:11 PM PAPER STRIPPER Temperature 14 09/07/2019 1:25 PM PAPER STRIPPER Respiratory Rate 98% 09/07/2019 1:25 PM PAPER STRIPPER Oxygen Saturation - - Inhaled Oxygen Concentration 101 kg (222 lb 10.6 oz) 09/07/2019 6:04 AM PAPER STRIPPER Weight 152.4 cm (5') 08/30/2019 5:56 PM PAPER STRIPPER Height 43.49 08/30/2019 5:56 PM PAPER STRIPPER Body Mass Index documented in this encounter Discharge Summaries * JhonatanSueCecilia, - 09/07/2019 10:48 AM PAPER STRIPPER [facility] Hospitalist - Discharge Summary Patient Name: Isiah Benítez Account No: [id number] Date of : 1950 Date of Admission: [...] activity as tolerated Scheduled Follow Up Appointments/Studies ([facility]): Future Appointments Date Time Provider Department Center 09/09/2019 To Be Determined Karen Levin RN [facility] None 10/04/2019 1:[address] [place] 10/11/2019 1:30 PM Darin Huber MD [facility] Additional Discharge Follow Up: Dr. Ebony Sharp [...] 2 CAPSULES BY MOUTH THREE TIMES DAILY [id number](VIT A,C-BIOTIN) ORAL Oral, Daily insulin glargine 100 [...] or edited the final report. READING SITE: [facility] Cardiac Studies during this encounter: No results [...] in this summary note. Cecilia Israel DO [facility] Medicine Division . R STRIPPER documented in this encounter Discharge Instructions * Attachments The following attachments cannot be sent through Care Everywhere.* FLUCONAZOLE ORAL TABLET ([place]) * Hydrochlorothiazide, HCTZ capsules or tablets ([place]) * Lactobacillus Oral formulations ([place]) * OXYCODONE HYDROCHLORIDE, ACETAMINOPHEN ORAL TABLET ([place]) * PREDNISONE ORAL TABLET ([place]) * Pyelonephritis, Discharge Instructions for ([place]) * Urinary Tract Infections in Women ([place]) * Infection, Respiratory Syncytial Virus (RSV) ([place]) * KIDNEY STONE W/ COLIC ([place]) * Stents, Ureteral ([place]) documented in this encounter Medications at Time [...] A/vit Take by mouth 0 C/biotin/zinc/copper daily. ([id number],VIT A,C-BIOTIN, ORAL) 09/07/2019 09/13/2019 fluconazole (DIFLUCAN) Take [...] as of this encounter Progress Notes * Cecilia Israel, - 09/06/2019 5:22 PM PAPER STRIPPER [facility] Hospitalist - Progress Note Patient Name: Isiah Do Board Account No: [id number] Date of : 1950 Date of Admission: [...] re results (as indicated), current inpatient medications, vendor management consultant notes and s upport staff notes with pertainent findings noted within the assessment/plan. Assessment/Plan Ms. Isiah Bentíez is a 69 y.o. female who was admitted on 08/30/2019 with Hemateme sis and Dizziness. Problems addressed with today's visit include: * Severe sepsis ([facility])/ pyelonephritis Sepsis resolved, s/p stent placement, ballard left in place, improving. - Will need to follow up with urology in 2-3 weeks COPD exacerbation ([facility])/ Acute on chronic hypoxemic respiratory failure +RSV - Taper steroids q 3 days - Titrate off O2 as able Hematemesis Hb remains stable - Cont PPI Acute on chronic respiratory failure ([facility]) - Due to COPD & RSV left Ureteral stone with hydronephrosis S/p left ureteral stent placement by Urology on 08/30/19. F/u for definitive treat ment Flomax, strain urine Hypertension - Add HCTZ Severe obesity (BMI >= 40) ([facility]) - Counseled on weight loss Acute vaginitis Fluconazole 150mg qOD X 3 days Type 2 diabetes mellitus with hyperglycemia, with long-term current use of insul in ([facility]) Resume home basal with level V SSI See my orders for additional details regarding this patients treatment plan. Room: [address] [place] [address] Diet: Diet-Low Fat/Chol, 2gm Na, Consistent Carbohydrate [...] prochlorperazine OR prochlorpe razine, sodium chloride Cecilia Israel DO [facility] Medicine Division . R STRIPPER * Arabella Irwin RN ANP - 09/06/2019 9:25 AM PAPER STRIPPER [facility] Urology Progress Note Date: 09/06/2019 Subjective: Sitting [...] within the last 7 days Lab Units 09/06/198 09/05/19 0201 09/03/19 0447 WBC TH/uL 9.44 9.89 10.60 HEMOGLOBIN g/dL 11.8* 11.1* 11.0* HEMATOCRIT % 36 34* 34* PLATELET COUNT TH/uL 215 179 121* Last 3 BMP Results (within the last 7 days): Most Recent Result within the last 7 days Lab Units 09/06/1932709/05/19 02009/03/19 0447 SODIUM MEQ/L 137 139 141 POTASSIUM [...] CVA tenderness Assessment/Plan: Principal Problem: Severe sepsis ([facility])/ pyelonephritis Active Problems: Pyelonephritis left Ureteral stone with hydronephrosis COPD exacerbation ([facility])/ Acute on chronic hypoxemic respiratory failure Acute on chronic respiratory failure ([facility]) Type 2 diabetes mellitus with hyperglycemia, with long-term current use of ins ulin ([facility]) Hematemesis Acute vaginitis Severe obesity (BMI >= 40) ([facility]) Hypertension POD#7s/p cystoscopy andleft ureteral [...] any questions/concerns. Arabella Irwin 09/06/2019 9:25 AM R STRIPPER * Cecilia Israel DO - 09/05/2019 4:37 PM PAPER STRIPPER [facility] Hospitalist - Progress Note Patient Name: Isiah Do Board Account No: [id number] Date of : 1950 Date of Admission: [...] re results (as indicated), current inpatient medications, vendor management consultant notes and s upport staff notes with pertainent findings noted within the assessment/plan. Assessment/Plan MsDot Benítez is a 69 y.o. female who was admitted on 08/30/2019 with Hemateme sis and Dizziness. Problems addressed with today's visit include: * Severe sepsis ([facility])/ pyelonephritis Sepsis resolved, s/p stent placement, ballard left in place, improving. - Will need to follow up with urology in 2-3 weeks COPD exacerbation ([facility])/ Acute on chronic hypoxemic respiratory failure +RSV - Taper steroids q 3 days - Titrate off O2 as able Hematemesis Hb remains stable - Cont PPI Acute on chronic respiratory failure ([facility]) - Due to COPD & RSV left Ureteral stone with hydronephrosis S/p left ureteral stent placement by Urology on 08/30/19. F/u for definitive treat ment Flomax, strain urine Hypertension - Add HCTZ Severe obesity (BMI >= 40) ([facility]) - Counseled on weight loss Acute vaginitis Fluconazole 150mg qOD X 3 days Type 2 diabetes mellitus with hyperglycemia, with long-term current use of insul in ([facility]) Resume home basal with level V SSI See my orders for additional details regarding this patients treatment plan. Room: [address] [place] [address] Diet: Diet-Low Fat/Chol, 2gm Na, Consistent Carbohydrate [...] prochlorperazine, sodium ch loride Cecilia Israel DO [facility] . R STRIPPER * Arabella Irwin RN ANP - 09/05/2019 9:23 AM PAPER STRIPPER [facility] Urology Progress Note Date: 09/05/2019 Subjective: Resting [...] within the last 7 days Lab Units 09/05/19 0201 09/03/197 09/02/19 0408 WBC TH/uL 9.89 10.60 9.49 HEMOGLOBIN g/dL 11.1* 11.0* 10.8* HEMATOCRIT % 34* 34* 33* PLATELET COUNT TH/uL 179 121* 132* Last 3 BMP Results (within the last 7 days): Most Recent Result within the last 7 days Lab Units 09/05/19 02009/03/1944609/02/19 0408 SODIUM MEQ/L 139 141 142 POTASSIUM [...] CVA tenderness Assessment/Plan: Principal Problem: Severe sepsis ([facility])/ pyelonephritis Active Problems: Pyelonephritis left Ureteral stone with hydronephrosis COPD exacerbation ([facility])/ Acute on chronic hypoxemic respiratory failure Acute on chronic respiratory failure ([facility]) Type 2 diabetes mellitus with hyperglycemia, with long-term current use of ins ulin ([facility]) Hematemesis Acute vaginitis Severe obesity (BMI >= 40) ([facility]) POD#6s/p cystoscopy andleft ureteral stent [...] from Hospitalist Arabella Irwin 09/05/2019 9:24 AM R STRIPPER * Arabella Irwin RN ANP - 09/04/2019 4:09 PM PAPER STRIPPER [facility] Urology Progress Note Date: 09/04/2019 Subjective: Doing [...] days Lab Units 09/03/19 0447 09/02/19 0408 09/01/19 0150 SODIUM MEQ/L 141 [...] generalized TTP Assessment/Plan: Principal Problem: Severe sepsis ([facility])/ pyelonephritis Active Problems: Pyelonephritis left Ureteral stone with hydronephrosis COPD exacerbation ([facility])/ Acute on chronic hypoxemic respiratory failure Acute on chronic respiratory failure ([facility]) Type 2 diabetes mellitus with hyperglycemia, with long-term current use of ins ulin ([facility]) Hematemesis Acute vaginitis Severe obesity (BMI >= 40) ([facility]) POD#5s/p cystoscopy andleft ureteral stent [...] from Hospitalist Arabella Irwin 09/04/2019 4:09 PM R STRIPPER * Cecilia Israel DO - 09/04/2019 2:33 PM PAPER STRIPPER [facility] Hospitalist - Progress Note Patient Name: Isiah Do Board Account No: [id number] Date of : 1950 Date of Admission: [...] re results (as indicated), current inpatient medications, vendor management consultant notes and s upport staff notes with pertainent findings noted within the assessment/plan. Assessment/Plan Ms. Isiah Benítez is a 69 y.o. female who was admitted on 08/30/2019 with Hemateme sis and Dizziness. Problems addressed with today's visit include: * Severe sepsis ([facility])/ pyelonephritis Sepsis resolved, s/p stent placement, ballard left in place, improving. - Will need to follow up with urology in 2-3 weeks COPD exacerbation ([facility])/ Acute on chronic hypoxemic respiratory failure +RSV - Taper steroids - Titrate off O2 as able Hematemesis Hb remains stable - Cont PPI Acute on chronic respiratory failure ([facility]) - Due to COPD & RSV left Ureteral stone with hydronephrosis S/p left ureteral stent placement by Urology on 08/30/19. F/u for definitive treat ment Flomax, strain urine Severe obesity (BMI >= 40) ([facility]) - Counseled on weight loss Acute vaginitis Fluconazole 150mg qOD X 3 days Type 2 diabetes mellitus with hyperglycemia, with long-term current use of insul in ([facility]) Resume home basal with level V SSI See my orders for additional details regarding this patients treatment plan. Room: [address] [place] [address] Diet: Diet-Low Fat/Chol, 2gm Na, Consistent Carbohydrate [...] prochlorperazine, sodium ch loride Cecilia Israel DO [facility] Medicine Division . R STRIPPER * Chuckie Short MD - 09/03/2019 12:52 PM PAPER STRIPPER [facility] Hospitalist - Progress Note Patient Name: Isiah Benítez Account No: [id number] Date of : 1950 Date of Admission: [...] details regarding this patients treatment plan. Room: [address] [place] [address] Diet: Diet-Low Fat/Chol, 2gm Na, Consistent Carbohydrate [...] OR prochlorperazine, sodium chloride Chuckie Short MD [facility] Medicine Division . [facility] decision making. R STRIPPER * Judson Hernandez MD - 09/03/2019 10:09 AM PAPER STRIPPER [facility] Urology Progress Note Date: 09/03/2019 Subjective: Doing [...] days Lab Units 09/03/19 0447 09/02/19 0408 09/01/19 0150 SODIUM MEQ/L 141 [...] urine clear Assessment/Plan: Principal Problem: Severe sepsis (HCC)/ pyelonephritis Active Problems: Pyelonephritis left Ureteral stone with hydronephrosis COPD exacerbation (HCC)/ Acute on chronic hypoxemic respiratory failure Acute on chronic respiratory failure (HCC) Type 2 diabetes mellitus with hyperglycemia, with long-term current use of ins ulin ([facility]) Hematemesis Acute vaginitis Severe obesity (BMI >= 40) ([facility]) POD#4s/p cystoscopy andleft ureteral stent for5 mm left proximal ureteral calculus, bilateral hydronephrosis, acute renal failure, andurosepsis - Currently afebrile and stable. Urine and blood cultures growing Steven. Con tinue Rocephin and Micafungin. Awaiting final culture results. - Renal sono 08/31 confirmed resolution of bilateral hydronephrosis. Pressurised Container Filler remains normal at 0.8 today. Good UOP - Left flank pain/bladder pressure likely from stent/Ballard. Continue supportiv e care. Currently on Detrol [place] and PRN [place]/Fentanyl. Will plan VT in AM sandy . - Left URS as outpt once recovered - Continue inpatient care - Appreciate assistance from Hospitalist and ICU physicians Judson Hernandez 09/03/2019 10:09 AM R STRIPPER * Judson Hernandez MD - 09/02/2019 11:05 AM PAPER STRIPPER [facility] Urology Progress Note Date: 09/02/2019 Subjective: No [...] urine clear Assessment/Plan: Principal Problem: Severe sepsis ([facility])/ pyelonephritis Active Problems: Pyelonephritis left Ureteral stone with hydronephrosis COPD exacerbation ([facility])/ Acute on chronic hypoxemic respiratory failure Acute on chronic respiratory failure ([facility]) Type 2 diabetes mellitus with hyperglycemia, with long-term current use of ins ulin ([facility]) Hematemesis Acute vaginitis Severe obesity (BMI >= 40) ([facility]) POD#3 s/p cystoscopy and left ureteral stent for 5 mm left proximal ureteral rosalind culus, bilateral hydronephrosis, acute renal failure, and urosepsis - Currently afebrile and stable. Urine and blood cultures growing Steven. Con tinue Rocephin and Micafungin. Awaiting final culture results. - Renal sono 08/31 confirmed resolution of bilateral hydronephrosis. Pressurised Container Filler remains normal at 1.0 today. Good UOP -Left flank pain/bladder pressure likely from stent/Ballard. Continue supportive care. Currently on Detrol [place] and PRN [place]/Fentanyl -Left URS as outpt once recovered - Continue inpatient care - Appreciate assistance from Hospitalist and ICU physicians Judson Hernandez 09/02/2019 11:05 AM R STRIPPER * Chuckie Short MD - 09/02/2019 8:04 AM PAPER STRIPPER [facility] Hospitalist - Progress Note Patient Name: Isiah Benítez Account No: [id number] Date of : 1950 Date of Admission: [...] d/c ballard when urology allows. COPD exacerbation (HCC)/ Acute on chronic hypoxemic [...] details regarding this patients treatment plan. Room: [address] [place] [address] Diet: Diet-Low Fat/Chol, 2gm Na, Consistent Carbohydrate [...] OR prochlorperazine, sodium chloride Chuckie Short MD [facility] Medicine [facility] . [facility] med decision making. R STRIPPER * Chuckie Short MD - 09/01/2019 11:10 AM PAPER STRIPPER [facility] Hospitalist - Progress Note Patient Name: Isiah Benítez Account No: [id number] Date of : 1950 Date of Admission: [...] visit include: * Severe sepsis (HCC)/ pyelonephritis Ureteral obstructing stone, s/p cystoscopy, stent [...] details regarding this patients treatment plan. Room: [address] [place] [address] Diet: Diet-Low Fat/Chol, 2gm Na, Consistent Carbohydrate [...] OR prochlorperazine, sodium chloride Chuckie Short MD [facility] Medicine Division . High med decision making. R STRIPPER * Arabella Irwin RN ANP - 09/01/2019 8:50 AM PAPER STRIPPER [facility] Urology Progress Note Subjective: Interval History: Main [...] urine cloudy Assessment/Plan: Principal Problem: Severe sepsis ([facility])/ pyelonephritis Active Problems: Pyelonephritis left Ureteral stone with hydronephrosis COPD exacerbation ([facility])/ Acute on chronic hypoxemic respiratory failure Acute on chronic respiratory failure ([facility]) Type 2 diabetes mellitus with hyperglycemia, with long-term current use of ins ulin ([facility]) Hematemesis Acute vaginitis Severe obesity (BMI >= 40) ([facility]) LOS: 2 days POD#2 s/p cystoscopy and left ureteral stent for 5 mm left proximal ureteral rosalind culus, bilateral hydronephrosis, acute renal failure, and urosepsis - Renal U/S film and report reviewed. This confirmed resolution of bilateral hy dronephrosis. Pressurised Container Filler improved to 1.1 and good UOP -Continue abx. Currently on Rocephin and Micafungin. Await cx's -Left flank pain likely from stent. Continue supportive care. Currently on Det rol [place] and PRN [place]/Fentanyl -Left URS as outpt once recovered - Continue inpatient care - Appreciate assistance from Hospitalist and ICU physicians Electronically signed by Arabella Irwin 09/01/2019 8:50 AM R STRIPPER Associated attestation - Judson Hernandez MD - 09/01/2019 10:15 PM PAPER STRIPPER I agree with Arabella Irwin NP's findings, assessment and plan as documented i n the note below. Judson Hernandez * Sharona English PharmD - 08/31/2019 6:47 PM PAPER STRIPPER Provider Contacted: Chuckie Short Date of Contact: 08/31/19 Time of Contact: [phone] Results for orders placed or performed during [...] Marleen Cleaning MD - 08/31/2019 6:39 PM PAPER STRIPPER Ms. sIiah Benítez is a 69 y.o. year-old female who presented on 08/30/2019 with Principal Problem: Severe sepsis (HCC)/ pyelonephritis Active Problems: Pyelonephritis left Ureteral stone with hydronephrosis COPD exacerbation (HCC)/ Acute on chronic hypoxemic respiratory failure Acute on chronic respiratory failure (HCC) Type 2 diabetes mellitus with hyperglycemia, with long-term current use of ins ulin (HCC) Hematemesis Acute vaginitis Severe obesity (BMI >= 40) ([facility]) eICU was called by RN regarding lab notifying them that patient is RSV +. Precau tions in place. Will continue monitoring while in the ICU. Marleen Snyder MD, 08/31/2019, 6:39 PM R STRIPPER * Chuckie Short MD - 08/31/2019 2:37 PM [facility] Patient Name: Isiah Benítez Account No: [id number] Date of : 1950 Date of Admission: [...] visit include: * Severe sepsis (HCC)/ pyelonephritis Likely ureteral obstructing stone, s/p cystoscopy, stent placement, ballard left i n place, improving. COPD exacerbation (HCC)/ Acute on chronic hypoxemic respiratory failure Exp wheeze, still requiring bipap on and off, check RVP, increase steroids to 40 mg daily, add scheduled nebs. resp precuations for now. To remain in ICU till no t dependent on bipap. Hematemesis IV PPI BID for now. Trend cbc. 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 Room: [address] [place] [address] Diet: Diet-Low Fat/Chol, 2gm Na, Consistent Carbohydrate [...] OR prochlorperazine, sodium chloride Chuckie Short MD [facility] Medicine Division . High med decision making. R STRIPPER * Janet Aragon MD - 08/31/2019 8:22 AM PAPER STRIPPER [facility] Urology Progress Note Subjective: Interval History: ICU [...] urine cloudy Assessment/Plan: Principal Problem: Severe sepsis ([facility]) Active Problems: Pyelonephritis left Ureteral stone with hydronephrosis COPD (chronic obstructive pulmonary disease) ([facility]) Acute on chronic respiratory failure ([facility]) Type 2 diabetes mellitus with hyperglycemia, with long-term current use of ins ulin ([facility]) Hematemesis Acute vaginitis Sinus tachycardia Severe obesity (BMI >= 40) ([facility]) LOS: 1 day POD#1 s/p [...] signed by Janet Aragon 08/31/2019 8:22 AM R STRIPPER * Ciaran Newman MD - 08/31/2019 2:36 AM PAPER STRIPPER Ms. Isiah Benítez is a 69 y.o. year-old female who presented on 08/30/2019 with Principal Problem: Severe sepsis ([facility]) Active Problems: Pyelonephritis left Ureteral stone with hydronephrosis COPD (chronic obstructive pulmonary disease) ([facility]) Acute on chronic respiratory failure ([facility]) Type 2 diabetes mellitus with hyperglycemia, with long-term current use of ins ulin ([facility]) Hematemesis Acute vaginitis Sinus tachycardia [...] ICU. Ciaran Newman MD, 08/31/2019, 2:37 AM R STRIPPER * Courtney Brown, RT - 08/30/2019 6:31 PM PAPER STRIPPER Respiratory Care Services Initial RATE Note 08/30/2019 6:32 PM A RATE assessment and treatement plan was performed on Isiah Ernestina Benítez, : 08/14 The primary Pulmonary/Respiratory related [...] No data recorded No data recorded The [employer] company providing the home oxygen/equipment is: No data recorded The patient states she does not use assistive ventilatory support devices at [facility]. Assistive ventilatory support devices include: No data recorded Settings are: No data recorded @[facility]([id number]])@ No data recorded No data recorded No data recorded The [employer] providing the home ventilator equipment is: No [...] Home CPAP, BiPAP, Mechanical Ventilation Medical Protocol R STRIPPER documented in this encounter H&P Notes * Jun Licona MD - 08/30/2019 5:38 PM PAPER STRIPPER [facility] Hospitalist - History & Physical Patient Name: Isiah Benítez Account No: [id number] Date of : 1950 Date of Admission: [...] bleeding 08/08/2016 Allergic rhinitis Anxiety Bronchitis, chronic ([facility]) Cataract 2011, 2012 bilat cateract surgery Chronic pain disorder back, ribs, and ankle. COPD (chronic obstructive pulmonary disease) ([facility]) Depression Draining postoperative wound 08/08/2016 Endometriosis Essential hypertension Fractures [address] in Left ankle MATA (generalized anxiety disorder) 09/24/2015 Hernia of abdominal cavity Kidney stone Mixed hyperlipidemia 09/24/2015 Morbid obesity due to excess calories ([facility]) 07/10/2016 On home oxygen therapy 2L - usually needs if has an exerbation of COPD, or resp illness SASHA on CPAP Osteoarthritis Refusal of blood transfusions as patient is Qu[place] Sleep apnea CPAP use Type 2 diabetes mellitus with hyperglycemia, with long-term current use of i nsulin ([facility]) 06/29/2016 Urinary calculi Urinary incontinence [...] joann es a day. vit A/vit C/biotin/zinc/copper ([id number],VIT A,C-BIOTIN, ORAL) Take by tanna th daily. [...] results (as indicated), current inpatient medications and learning support specialist notes with pertainent findings noted within the assessment/plan. I have personally re viewed and updated the patient's past medical history, past surgical history, fa carmelo history and social history as appropriate. Assessment/Plan Ms. Isiah Benítez is a 69 y.o. female who was admitted on 08/30/2019 with complain t of Hematemesis and Dizziness. * Severe sepsis ([facility]) Meets w HR, WBC, UTI, [...] cbc. 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 Wean back to baseline 3L NC and nighttime CPAP for sasha COPD (chronic obstructive pulmonary disease) ([facility]) Was getting rx for copd [...] as note d above. Jun Licona MD [facility] Medicine Division . R STRIPPER documented in this encounter Consult Notes * Delores Mckinley RN - 08/31/2019 5:30 PM PAPER STRIPPER Associated Order(s): CONSULT - VASCULAR ACCESS TEAM [...] tip in the dSVC Line released to Letty [employer]INA for use Complications: Dressing oozing Delores Mckinley 08/31/2019 5:30 PM R STRIPPER * Arabella Irwin RN ANP - 08/30/2019 2:33 PM PAPER STRIPPER [facility] UROLOGY CONSULT NOTE Patient: Isiah Benítez Age: [...] mental status. Labs rev iewed. WBC 12.26K. Pressurised Container Filler 1.2. Lactate 3.9. She had a fever [...] Refusal of blood transfusions as patient is Quaker Sleep apnea CPAP use Type 2 diabetes [...] STENT PLACEMENT; Surgeon: Darin Huber MD; Location: [facility] Main [place]; Service: Urology; Laterality: Left; CYSTOSCOPY, RETROGRADE PYELOGRAM, URETEROSCOPY, LASERLITHOTRIPSY, WITH URETE RAL STENT PLACEMENT Left 08/02/2019 Procedure: CYSTOSCOPY, LEFT RETROGRADE PYELOGRAM, LEFT URETEROSCOPY, LASER LITH OTRIPSY, LEFT URETERAL STENT EXCHANGE; Surgeon: Darin Huber MD; Location: [facility] Main OR; Service: Urology; Laterality: Left; HAND SURGERY Left 03/09/2019 CTR HERNIA REPAIR HYSTERECTOMY OOPHORECTOMY REMOVAL, HARDWARE, FOOT OR ANKLE Left 04/09/2017 Procedure: LEFT ANKLE REMOVAL OF HARDWARE WITH REVISION LEFT ANKLE ARTHRODESIS; Surgeon: Adelaida Olivas MD; Location: [facility] Main [place]; Service: Orthopedics; Later ality: Left; REPAIR, INCISIONAL HERNIA, LAPAROSCOPIC, USING MESH N/A 05/25/2018 Procedure: LAPAROSCOPIC INCISIONAL HERNIA REPAIR WITH MESH; Surgeon: Medardo Tate MD; Location: [facility] Main [place]; Service: General; Laterality: [...] day. 30 tablet 0 vit A/vit C/biotin/zinc/copper ([id number],VIT A,C-BIOTIN, ORAL) Take by mouth daily. ALLERGIES: [...] file Gets together: Not on file Attends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 STRIPPER GLUCOSE POC Routine 08/31/2019 11:32 AM PAPER STRIPPER GLUCOSE POC Routine 08/31/2019 5:05 AM PAPER STRIPPER COMPLETE BLOOD COUNT Routine 08/31/2019 5:00 AM PAPER STRIPPER BASIC METABOLIC PANEL Routine 08/31/2019 5:00 AM PAPER STRIPPER GLUCOSE POC Routine 08/31/2019 1:42 AM PAPER STRIPPER TROPONIN Timed 08/30/2019 10:51 PM PAPER STRIPPER LACTATE VENOUS WB Timed 08/30/2019 10:51 PM PAPER STRIPPER TROPONIN Timed 08/30/2019 7:10 PM PAPER STRIPPER LACTATE VENOUS WB Routine 08/30/2019 7:10 PM PAPER STRIPPER BIPAP Routine 08/30/2019 6:11 PM PAPER STRIPPER GLUCOSE POC Routine 08/30/2019 5:16 PM PAPER STRIPPER GLUCOSE STAT 08/30/2019 4:48 PM PAPER STRIPPER GLUCOSE POC Routine 08/30/2019 4:35 PM PAPER STRIPPER FL RETROGRADE UROGRAPHY STAT 08/30/2019 IN OR 4:20 PM PAPER STRIPPER GLUCOSE POC Routine 08/30/2019 4:00 PM PAPER STRIPPER CULTURE, URINE Timed 08/30/2019 3:54 PM PAPER STRIPPER CULTURE, FUNGUS Timed 08/30/2019 3:54 PM PAPER STRIPPER CULTURE, AFB Timed 08/30/2019 3:54 PM PAPER STRIPPER CYSTOSCOPY, WITH 08/30/2019 LEFT URETERAL STENO SIS RETROGRADE PYELOGRAM AND 3:24 PM PAPER STRIPPER URETERAL STENT INSERTION GLUCOSE POC Routine 08/30/2019 2:57 PM PAPER STRIPPER GLUCOSE POC Routine 08/30/2019 2:55 PM PAPER STRIPPER URINALYSIS MICROSCOPIC STAT 08/30/2019 ONLY 2:14 PM PAPER STRIPPER URINALYSIS REFLEX STAT 08/30/2019 2:14 PM PAPER STRIPPER CULTURE, URINE STAT 08/30/2019 2:14 PM PAPER STRIPPER CULTURE, BLOOD STAT 08/30/2019 1:34 PM PAPER STRIPPER CULTURE, BLOOD STAT 08/30/2019 1:[address] ABDOMEN PELVIS W STAT 08/30/2019 CONTRAST 12:48 PM PAPER STRIPPER FLU PCR STAT 08/30/2019 12:29 PM PAPER STRIPPER ED PROCEDURE BASIC - Routine 08/30/2019 CRITICAL CARE 12:21 PM PAPER STRIPPER FECAL OCCULT BLOOD STAT 08/30/2019 INPATIENT 12:14 PM PAPER STRIPPER TROPONIN STAT 08/30/2019 12:13 PM PAPER STRIPPER NTPROBNP STAT 08/30/2019 12:13 PM PAPER STRIPPER MAGNESIUM Routine 08/30/2019 12:13 PM PAPER STRIPPER LIPASE STAT 08/30/2019 12:13 PM PAPER STRIPPER LACTATE VENOUS WB STAT 08/30/2019 12:13 PM PAPER STRIPPER COMPREHENSIVE METABOLIC STAT 08/30/2019 PANEL 12:13 PM PAPER STRIPPER CBC AND DIFF (MANUAL DIFF STAT 08/30/2019 IF NECESSARY) 12:13 PM PAPER STRIPPER XR CHEST SINGLE VIEW STAT 08/30/2019 FRONTAL 11:51 AM PAPER STRIPPER ECG STAT 08/30/2019 11:46 AM PAPER STRIPPER documented in this encounter Results * GLUCOSE POC (09/07/2019 12:06 PM PAPER STRIPPER) Only the most recent of 42 results within the time period is included. Glucose POC 259 (H) 70 - 100 mg/dL [facility] Specimen Performing Organization Address City/State/Zipcode Ph one Number [facility] [address] [facility] [place] [address] [facility] [address] [facility] [place] [address], [facility] * XR Chest single view frontal (09/06/2019 5:28 AM PAPER STRIPPER) Only the most recent of 4 results [...] edite d the final report. READING SITE: [facility] Narrative Performed At Patient: ISIAH BENÍTEZ Sex#: F #: [id number] Jose #: [id number] Location: [place] [address] Accessi on#: [id number] Procedure Requested: [id number] XR CHEST SINGLE VIEW FRONTAL Reason for [...] Rad Results In - 09/06/2019 1:42 PM PAPER STRIPPER Patient: ISIAH BENÍTEZ Sex#: Paulina #: 1950 Jose#: [id number] Location: [place] [address] Procedure Requested: [id number] XR CHEST SINGLE VIEW FRONTAL Reason for [...] or edited the final report. READING SITE: [facility] Organization Address City/State/[facility] Ph one Number [facility] * Basic Metabolic Panel (09/06/2019 3:28 AM PAPER STRIPPER) Only the most recent of 6 results within the time period is included. Sodium 137 133 - 147 MEQ/L [facility] Potassium 3.7 3.5 - 5.3 MEQ/L [facility] Chloride 93 (L) 96 - 112 MEQ/L [facility] Carbon Dioxide 40 (H) 20 - 32 MEQ/L [facility] Anion Gap 4 (L) 5 - 17 [facility] Calcium 9.1 8.4 - 10.5 mg/dL [facility] Glucose 111 (H) 70 - 100 mg/dL [facility] Blood Urea 21 7 - 26 mg/dL [facility] Nitrogen [facility] Creatinine 0.7 0.4 - 1.1 mg/dL [facility] eGFR Female AA 100 60 - 200 [facility] mL/min/1.73sq m [facility] eGFR Female 83 60 - 200 [facility] Non-AA mL/min/1.73sq m [facility] Specimen Blood Performing Organization Address City/State/[facility] Ph one Number [facility] [address] [place] [address] [facility] [address] [facility] [place] [address] [facility] * Complete Blood Count (09/06/2019 3:28 AM PAPER STRIPPER) Only the most recent of 6 results within the time period is included. WBC 9.44 4.00 - 11.00 TH/uL [facility] RBC 3.64 (L) 4.00 - 5.00 MIL/uL [facility] Hemoglobin 11.8 (L) 12.0 - 15.0 g/dL [facility] Hematocrit 36 36 - 45 % [facility] MCV 99 80 - 99 fL [facility] MCH 32 27 - 34 pg [facility] MCHC 33 32 - 36 % [facility] RDW 13.4 11.5 - 14.5 % [facility] Platelet Count 215 140 - 400 TH/uL [facility] MPV 10.3 9.4 - 12.3 fL [facility] Nucleated RBCs 0 0 - 0 /100 [facility] Cedric Israeleugenia [facility] Specimen Blood Performing Organization Address [facility] one Number [facility] [address] [facility] , [place] [id number] [facility] [address] [facility] [place] [address] [facility] * Culture, Blood (09/04/2019 11:32 AM PAPER STRIPPER) Only the most recent of 4 results within the time period is included. Pathologist [facility] Culture Result No Growth at 5 days [facility] Specimen Blood Narrative Performed At 20ml rh [facility] Performing Organization Address [facility] one Number [address] [address] LABORATORIES [facility] [address] [place] [address] * Troponin (09/03/2019 9:00 PM PAPER STRIPPER) Only the most recent of 4 results within the time period is included. Pathologist [facility] Troponin <0.01 0.00 - 0.03 ng/mL [facility] Comment: Cedric Ramos Troponin Value [facility] Interpretation 0.00 - 0.03 Healthy 0.04 - 0.12 Increased Cardiac Risk >0.12 Myocardial Infarction Troponin may not become elevated until 6 to 8 hours after onset of symptoms. Specimen Blood Performing Organization Address [facility] one Number [facility] [address] [facility] [place] [phone] [facility] [place] [facility] [address] [place] [address] [facility] * Electrocardiogram (ECG) (09/03/2019 8:23 PM PAPER STRIPPER) Only the most recent of 2 results within the time period is included. Pathologist [facility] QRSd 102 TRACEMASTER QT 388 TRACEMASTER QTC 481 TRACEMASTER ECGHR 92 TRACEMASTER ECGPR 148 TRACEMASTER Specimen Narrative Performed At [facility] Test Date: 2019-09-03 Pat Name: ISIAH BENÍTEZ Department: SI1 Room: 4065 Gender: Female Bag Inspector: [id number] : 1950 Requested By: CHUCKIE SHORT Order Number: [id number] Reading MD: Omar Ramirez Measurements Intervals Addison Rate: 92 P: 59 CO: 148 QRS: 38 QRSD: 102 T: 50 QT: 388 QTc: 481 Interpretive Statements SINUS RHYTHM Electronically Signed On 09-15-2019 11:2 3:15 PAPER STRIPPER by Omar Ramirez Procedure Note Interface, External Ris In - 09/15/2019 11:23 AM PAPER STRIPPER [facility] Test Date: 2019-09-03 Pat Name: ISIAH BENÍTEZ Department: SI1 Room: 4065 Gender: Female Bag Inspector: [id number] : 1950 Requested By: CHUCKIE SHORT Order Number: [id number] Reading MD: Omar Ramirez Measurements Intervals Addison Rate: 92 P: 59 CO: 148 QRS: 38 QRSD: 102 T: 50 QT: 388 QTc: 481 Interpretive Statements SINUS RHYTHM Electronically Signed On 09-15-2019 11:23:15 PAPER STRIPPER by Omar Ramirez Performing Organization Address City/State/Zipcode Ph one Number ANDREW * US Renal complete (08/31/2019 2:11 PM PAPER STRIPPER) Specimen Impressions Performed At Unremarkable renal ultrasound. LEVI No suspicious renal mass identified. No evidence of hydronephrosis. READING SITE: [facility] Narrative Performed At Patient: ISIAH BENÍTEZ Sex#: F #: 1950 Jose #: [id number] Location: [place] [address] Accessi on#: [id number] Procedure Requested: [id number] US RENAL COMPLETE Reason for Exam: ARF, [...] Rad Results In - 08/31/2019 2:23 PM PAPER STRIPPER Patient: ISIAH BENÍTEZ Sex#: F #: 1950 Jose#: [id number] Location: [facility] 4 ICU3 4076-01 Procedure Requested: [id number] US RENAL COMPLETE Reason for Exam: ARF, [...] identified. No evidence of hydronephrosis. READING SITE: [facility] Address City/State/Zipcode Ph one Number LEVI * Respiratory Panel by PCR (08/31/2019 11:35 AM PAPER STRIPPER) Adenovirus Not Detected Not Detected [facility] Bordetella Not Detected Not Detected [facility] pertussis [facility] Chlamydophila Not Detected Not Detected [facility] pneumoniae Hospital Lab Coronavirus Not Detected Not Detected [facility] 229E [facility] Coronavirus Not Detected Not Detected [facility] HKU1 [facility] Coronavirus Not Detected Not Detected [facility] NL63 [facility] Coronavirus Not Detected Not Detected [facility] OC43 [facility] Human Not Detected Not Detected [facility] Metapneumovirus [facility] (hMPV) Human Not Detected Not Detected [facility] Rhinovirus [facility] Enterovirus Influenza A Not Detected Not Detected [facility] Influenza B Not Detected Not Detected [facility] Mycoplasma Not Detected Not Detected [facility] Lab Parainfluenza Not Detected Not Detected [facility] Virus (PIV) 1 Hospital Lab Parainfluenza Not Detected Not Detected [facility] Virus (PIV) 2 Hospital Lab Parainfluenza Not Detected Not Detected [facility] Virus (PIV) 3 Hospital Lab Parainfluenza Not Detected Not Detected [facility] Virus (PIV) 4 Hospital Lab Respiratory Detected (A) Not Detected [facility]'s Syncytial Virus Hospital Lab Pl Source NASOPHAR [facility] Specimen Nasopharynx, Performing Organization Address City/[facility] Ph one Number [address] [address] LABORATORIES [facility] [address] [place] [address] * Lactate Venous WB (08/30/2019 10:51 PM PAPER STRIPPER) Only the most recent of 3 results within the time period is included. Lactate Venous 1.9 0.0 - 2.0 mmol/L [facility] Specimen Blood Narrative Performed At Reflex sepsis screen >2.0 [facility] Performing Organization Address [facility] one Number [facility] [address] [facility] Institute[facility], [place] [phone] [facility] [place] [address] [facility] [place] [address] [facility] [address] [place] [address], [place] [phone] [facility] * Glucose (08/30/2019 4:48 PM PAPER STRIPPER) Glucose 304 (H) 70 - 100 mg/dL [facility] Cedric Nettie Lab Specimen Blood Narrative Performed At Reflex order. Previous POC GLUCOSE >500 [facility] Performing Organization Address City/[facility] Ph one Number [facility] [address] [facility] [place] [address] [facility] [address] [facility] [facility] [place] [address] [facility] [address] [place] [address], [facility] * FL Retrograde Urography in OR (08/30/2019 4:20 PM PAPER STRIPPER) Specimen Impressions Performed At FINDINGS/IMPRESSION: 1 intraoperative fluoroscopicvie w is submitted. LEVI Total fluoroscopy time was 19.4 seconds . Left ureteral stent has been placed. The proximal aspect is coiled w ithin the decompressed left renal pelvis. The distal aspect is not includ ed on this examination. Please see procedure note for further evaluati on. READING LOCATION: [facility] Narrative Performed At Patient: ISIAH BENÍTEZ Sex#: F #: 1950 Jose #: [id number] Location: [facility] MAIN OR NONE Procedure Requested: [id number] FL RETRO GRADE UROGRAPHY IN OR Reason for Exam: abdomen pain Exam Ordered: 08/30/2019 144 0 Exam Date/Time: 08/30/2019 1620 Begin exam date/time: 08/30/2019 1530 STUDY/PROCEDURE: Intraoperative fluoros copic procedure guidance INDICATION: Left ureteral calculus, hyd ronephrosis. COMPARISON: CT of the abdomen and pelvi s with contrast dated September 09, 2019. Procedure Note Interface, Rad Results In - 08/30/2019 7:33 PM PAPER STRIPPER Patient: ISIAH BENÍTEZ Sex#: F #: 1950 Jose#: [id number] Location: SLE MAIN OR NONE Procedure Requested: [id number] FL RETROGRADE UROGRAPHY IN OR Reason for [...] procedure note for further evaluation. READING LOCATION: [facility] Performing Organization Address [facility] one Number LEVI * Culture, Urine (08/30/2019 3:54 PM PAPER STRIPPER) Only the most recent of 2 results within the time period is included. Isolate 1 >100,000 Cfu/ml (A) [facility] Isolate 1 Steven albicans (A) [facility] Isolate 1 In the absence of symptoms, [facility] Steven is generally Hospital Lab considered normal ciera. No therapy indicated unless high risk (, or neutropenic) or undergoing urologic procedure. If Ballard catheter present, remove or replace when able. (A) Specimen Urine - Urine Antibiotic Method Susceptibility Organism FLUCONAZOLE <=1: Sensitive Steven albicans VORICONAZOLE <=0.12: Sensitive Steven albicans Performing Organization Address [facility] one Number [address] [address] LABORATORIES [facility] [address] [place] [address] * Culture, Fungus (08/30/2019 3:54 PM PAPER STRIPPER) Isolate 1 Steven albicans (A) [facility] Specimen Urine - Urine Performing Organization Address [facility] one Number [facility] [address] [place] [address] LABORATORIES [facility] [address] [place] [address] * Culture, AFB (08/30/2019 3:54 PM PAPER STRIPPER) AFB Stain No Acid Fast Bacilli seen on [facility] fluorescent stain. Hospital Lab Culture result No Acid fast bacilli isolated [facility] colladoeug[facility] Mycobacteriolog at 6 weeks Hospital Lab y Specimen Urine - Urine Performing Organization [facility] one Number [address] [address] LABORATORIES [facility] [address] [place] [address] * Urinalysis Microscopic Only (08/30/2019 2:14 PM PAPER STRIPPER) Microscopic RBC 6 - 10 (A) 0 - 5 /hpf [facility] Microscopic WBC >40 (A) 0 - 5 /hpf [facility] Urine [facility] Epithelial Absent Absent [facility] Cells [facility] Hyaline Cast Large (A) Absent [facility] Bacteria Absent Absent [facility] WBC Clumps Present (A)Comment: WBC count Absent [facility] may be under-estimated due to [facility] the presence of WBC clumps. [facility] Yeast Present (A) Absent [facility] Specimen Catheter Urine Performing Organization Address City/State/[facility] Ph one Number [facility] [address] [place] [address] [facility] [address] [facility] [place] [address] [facility] * Urinalysis Reflex (08/30/2019 2:14 PM PAPER STRIPPER) Appearance, Yellow [facility] Urine [facility] Glucose Urine >=1000 (A) Negative mg/dL [facility] Bilirubin Urine Negative Negative [facility] Ketones Urine Negative Negative mg/dL [facility] Specific >=1.030 1.001 - 1.030 [facility] [place], UA [facility] Hemoglobin Large (A) Negative [facility] Urine [facility] PH Urine 5.0 5.0 - 8.0 [facility] Protein Urine 30 (A) Negative mg/dL [facility] Qual [facility] Urobilinogen Negative Negative EU/dL [facility] U[facility] Nitrite Urine Negative Negative [facility] Leukocyte Positive (A) Negative [facility] Esterase Cedric Ramos [facility] Specimen Catheter Urine Performing Organization Address City/State/Zipcode Ph one Number [facility] [address] [place] [address] [facility] [address] [place] [address] [facility] * CT Abdomen Pelvis w contrast (08/30/2019 12:48 PM PAPER STRIPPER) Specimen Impressions Performed At 1. 5 mm proximal left ureteral stone and mild left-si ded hydronephrosis. LEVI No other nephroureterolithiasis is seen . 2. 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 Moderate urinary bladder distention. 3. Hepatomegaly and hepatic steatosis. READING SITE: [facility] Narrative Performed At Patient: ISIAH BENÍTEZ Sex#: F #: [id number] Jose #: [id number] Location: [facility] SED-07 Procedure Requested: [id number] CT ABDOM EN PELVIS W CONTRAST Reason [...] Rad Results In - 08/30/2019 1:09 PM PAPER STRIPPER Patient: ISIAH BENÍTEZ Sex#: Paulina #: 1950 Jose#: [id number] Location: [facility] SED-07 Procedure Requested: [id number] CT ABDOMEN PELVIS W CONTRAST Reason for [...] and hepatic steatosis. READING SITE: [facility] Performing Organization Address City/[facility] Ph one Number LEVI * Influenza PCR (08/30/2019 12:29 PM PAPER STRIPPER) Influenza A PCR Not Detected Not Detected [facility] Influenza B PCR Not Detected Not Detected [facility] Source Nasopharynx [facility] Specimen NASOPHARYNGEAL SWAB Performing Organization Address City/State/Zipcode Ph one Number [facility] [address] [facility] [place] [address] [facility] [address] [facility] [place] [address] [facility] * ED PROCEDURE BASIC - CRITICAL CARE (08/30/2019 12:21 PM PAPER STRIPPER) Narrative Performed At Dirk Valencia MD 08/30/2019 [...] Blood, diagnostic (non-neoplasm screening) (08/30/2019 12:14 PM PAPER STRIPPER) Fecal Occult Negative Negative [facility] 1 08/30/2019 [facility] Collection Date Cedric [facility] Specimen Stool Performing Organization Address [facility] [place] Ph one Number [facility] [address] [facility] [place] [address] [facility] [address] [place] [address] [facility] * Magnesium (08/30/2019 12:13 PM PAPER STRIPPER) Magnesium 1.7 1.4 - 2.7 mg/dL [facility] Specimen Blood Performing Organization Address [facility] [place] Ph one Number [facility] [address] [place] [address] [facility] [address] [place] [address] [facility] * BNP (08/30/2019 12:13 PM PAPER STRIPPER) NTproBNP 340 pg/mL [facility] Comment: Cedric Mancusos NT-proBNP Reference Ranges: [facility] <50 yr <450 pg/mL 50-75 yr <900 pg/mL >75 yr <1800 pg/mL A cutoff value of 1200 pg/mL is recommended in patients 50 to 70 years of age with a GFR between 30 and 60. NT-proBNP is unreliable in patients with GFR <30. Specimen Blood Performing Organization Address [facility] [place] Ph one Number [facility] [address] [place] [address] [facility] [address] [facility] [place] [address] [facility] * Lipase (08/30/2019 12:13 PM PAPER STRIPPER) Lipase 20 (L) 23 - 300 IU/L [facility] Specimen Blood Performing Organization Address [facility] one Number [facility] [address] [place] [address] [facility] [address] [facility] [place] [address] [facility] * Comprehensive Metabolic Panel (08/30/2019 12:13 PM PAPER STRIPPER) Sodium 137 133 - 147 MEQ/L [facility] Potassium 4.4 3.5 - 5.3 MEQ/L [facility] Chloride 97 96 - 112 MEQ/L [facility] Carbon Dioxide 27 20 - 32 MEQ/L [facility] Anion Gap 14 5 - 17 [facility] Calcium 9.2 8.4 - 10.5 mg/dL [facility] Glucose 439 (H) 70 - 100 mg/dL [facility] Protein Total 8.8 (H) 6.0 - 8.2 g/dL [facility] Serum [facility] Albumin 4.5 3.5 - 5.0 g/dL [facility] Alkaline 124 42 - 140 IU/L [facility] Phosphatase [facility] Alanine 33 0 - 34 IU/L [facility] Aminotransferas [facility] Aspartate 36 15 - 46 IU/L [facility] Aminotransferas [facility] Bilirubin Total 0.5 0.2 - 1.3 mg/dL [facility] Blood Urea 26 7 - 26 mg/dL [facility] Nitrogen [facility] Creatinine 1.2 (H) 0.4 - 1.1 mg/dL [facility] eGFR Female AA 54 (L) 60 - 200 [facility] mL/min/1.73sq m [facility] eGFR Female 45 (L) 60 - 200 [facility] Non-AA mL/min/1.73sq [facility] Specimen Blood Performing Organization Address City/State/Zipcode Ph one Number [facility] [address] [place] [address] [facility] [address] [place] [address] [facility] * CBC and Diff (manual diff if necessary) (08/30/2019 12:13 PM PAPER STRIPPER) [facility] Signature WBC 12.26 (H) 4.00 - 11.00 TH/uL [facility] RBC 4.67 4.00 - 5.00 MIL/uL [facility] Hemoglobin 15.1 (H) 12.0 - 15.0 g/dL [facility] Hematocrit 45 36 - 45 % [facility] MCV 97 80 - 99 fL [facility] MCH 32 27 - 34 pg [facility] MCHC 33 32 - 36 % [facility] RDW 13.1 11.5 - 14.5 % [facility] Platelet Count 161 140 - 400 TH/uL [facility] MPV 10.8 9.4 - 12.3 fL [facility] Nucleated RBCs 0 0 - 0 /100 [facility] % Neutrophils 87 (H) 45 - 78 % [facility] %Lymphocytes 10 (L) 15 - 47 % [facility] %Monocytes 3 0 - 12 % [facility] %Eosinophils 0 0 - 7 % [facility] %Basophils 0 0 - 2 % frank Manc[facility]os [facility] # Granulocytes 10.67 (H) 1.7 - 6.8 TH/uL [facility] # Lymphocytes 1.23 1.0 - 3.3 TH/uL [facility] # Monocytes 0.37 0.2 - 0.9 TH/uL [facility] # Eosinophils 0.00 0.0 - 0.4 TH/uL [facility] # Basophils 0.05 0.0 - 0.1 TH/uL [facility] Left Shift Present (A) Absent [facility] RBC Morphology Normal Normal [facility] Specimen Blood Performing Organization Address City/State/Zipcode Ph one Number [facility] [address] [facility] [place] [address] [facility] [address] [facility] [place] [address] [facility] documented in this encounter Visit Diagnoses Not on filedocumented in this encounter Admitting Diagnoses Diagnosis Pyelonephritis Unspecified pyelonephritis documented in this encounter Administered Medications Action Date Dose Rate Site Medication Order MAR Action acetaminophen (TYLENOL) suppository 325-650 mg 325-650 mg, Rectal, Every 6 hours PRN, mild pain (pain score 1-3), fever, Starting Wed08/30/19 at 1724, Administer if patient unable to tolerate oral medications., acetaminophen (TYLENOL) tablet 325-650 mg 325-650 mg, Oral, Every 6 hours PRN, mild pain (pain score 1-3), fever, Starting Wed08/30/19 at 1724, Do not exceed 4 GM/DAY of acetaminophen. If 6 5 or older do not exceed 3 GM/DAY. If chronic alcoholic do not exceed 2 GM/DAY., 09/02/2019 11:25 PM PAPER STRIPPER 2.5 mg albuterol (ACCUNEB) 2.5 mg/3 mL (0.083 Given %) nebulizer solution 2.5 mg 2.5 mg, Nebulization, Every 4 hours PRN , wheezing, shortness of air, Starting 08/30/19 at 1725 2.5 mg Given 09/01/2019 1:03 AM PAPER STRIPPER 09/05/2019 3:01 PM PAPER STRIPPER 2 mg alteplase (CATHFLO ACTIVASE) injection 2 Given mg 2 mg, Intra-Catheter, As needed, declotting central catheter or sluggish/occluded CVC line, Starting u 08/31/19 at 1724, Use 2 mg/2 mL to declot catheter as needed, Declot catheter per Central Venous Access Device, Declottin g procedure in Melissa Refrigerate. Reconstitute with 2.2 mL sterile water for injection, 08/31/2019 6:33 PM PAPER STRIPPER 15 mL aluminum-magnesium hydroxide-simethicone Given (MAALOX PLUS) 400-400-40 mg/5 mL suspension 15 mL 15 mL, Oral, Every 4 hours PRN, indigestion, Starting Wed08/30/19 at 1723, Avoid if estimated glomerular filtration rate (eGFR) is less than 20 mL/minute/1.73m2., 09/06/2019 8:51 PM PAPER STRIPPER 25 mg amitriptyline (ELAVIL) tablet 25 mg Given 25 mg, Oral, Nightly, First dose on Wed08/30/19 at 2100 25 mg Given 09/05/2019 8:09 PM PAPER STRIPPER 25 mg Given 09/04/2019 8:33 PM PAPER STRIPPER 09/06/2019 8:51 PM PAPER STRIPPER 40 mg atorvastatin (LIPITOR) tablet 40 mg Given 40 mg, Oral, Nightly, First dose on Wed08/30/19 at 2100 40 mg Given 09/05/2019 8:09 PM PAPER STRIPPER 40 mg Given 09/04/2019 8:33 PM PAPER STRIPPER benzocaine-menthol (CEPACOL) lozenge 1 lozenge 1 lozenge, Buccal, Every 1 hour prn, sore throat, Starting Wed08/30/19 at 172 4 09/07/2019 2:48 PM PAPER STRIPPER 100 mg benzonatate (TESSALON) capsule 100 mg Given 100 mg, Oral, 3 times daily PRN, cough, Starting Wed08/30/19 at 1753, DO NOT CRUSH OR CHEW., 100 mg Given 09/07/2019 10:06 AM PAPER STRIPPER 100 mg Given 09/05/2019 8:27 PM PAPER STRIPPER bisacodyl (DULCOLAX) suppository 10 mg 10 mg, Rectal, Daily PRN, constipation, constipation in patients who are NPO, i n patients who have nausea, or in patient s where there is any concern about ileus or bowel obstruction., Starting Wed08/30/19 at 1723, Hold these medications if patient has had loose stool or diarrhea within previous 24 hours., 09/07/2019 10:06 AM PAPER STRIPPER 20 mg citalopram (CeleXA) tablet 20 mg Given 20 mg, Oral, Daily, First dose on Wed08/30/19 at 1745 20 mg Given 09/06/2019 9:23 AM PAPER STRIPPER 20 mg Given 09/05/2019 8:33 AM PAPER STRIPPER 09/04/2019 3:35 AM PAPER STRIPPER 0.1 mg cloNIDine HCl (CATAPRES) tablet 0.1 mg Given 0.1 mg, Oral, Every 8 hours PRN, SBP > 180 and/or DBP > 100, Starting Wed09/04/19 at 0322 09/07/2019 2:29 PM PAPER STRIPPER 10 mg cyclobenzaprine (FLEXERIL) tablet 10 mg Given 10 mg, Oral, 3 times daily PRN, muscle spasms, Starting Wed08/30/19 at 1726 10 mg Given 09/07/2019 10:05 AM PAPER STRIPPER 10 mg Given 09/04/2019 8:50 PM PAPER STRIPPER dextrose (D50W) 50 % injection 25-50 mL [...] at 1723, DO NOT CRUSH OR CHEW., 09/07/2019 10:03 AM PAPER STRIPPER 40 mg Right Lo wer Abdomen enoxaparin (LOVENOX) syringe 40 mg Given 40 mg, Subcutaneous, Every 24 hours scheduled, First dose on Wed08/30/19 at 1745 40 mg Left Lower Abdomen Given 09/06/2019 9:24 AM PAPER STRIPPER 40 mg Right Lower Abdomen Given 09/05/2019 8:32 AM PAPER STRIPPER 09/06/2019 11:08 AM PAPER STRIPPER 50 mcg fentaNYL (SUBLIMAZE) injection 25-50 mcg [...] therapy., 50 mcg Given 09/05/2019 8:09 PM PAPER STRIPPER 50 mcg Given 09/05/2019 10:30 AM PAPER STRIPPER 09/07/2019 11:40 AM PAPER STRIPPER 400 mg 100 mL/hr fluconazole in NaCl (iso-osm) (DIFLUCAN) New Bag IVPB 400 mg 400 mg, Intravenous, at 100 mL/hr, Daily, Indications: CANDIDEMIA, C. albicans sensitive to fluconazole, Firs t dose on Wed09/06/19 at 1000 400 mg 100 mL/hr New Bag 09/06/2019 10:13 AM PAPER STRIPPER 09/07/2019 8:16 AM PAPER STRIPPER 1 puff fluticasone furoate-vilanterol (BREO Given ELLIPTA) 200-25 mcg/actuation inhaler 1 puff 1 puff, Inhalation, Daily, First dose o n Wed08/30/19 at 1745, Rinse mouth with water after use if patient not on vent. , 1 puff Given 09/06/2019 8:44 AM PAPER STRIPPER 1 puff Given 09/05/2019 7:49 AM PAPER STRIPPER 09/07/2019 10:07 AM PAPER STRIPPER 600 mg gabapentin (NEURONTIN) capsule 600 mg Given 600 mg, Oral, 3 times daily, First dose on Wed08/30/19 at 1745 600 mg Given 09/06/2019 8:51 PM PAPER STRIPPER 600 mg Given 09/06/2019 5:14 PM PAPER STRIPPER glucagon (GLUCAGEN) injection 1 mg 1 mg, Intramuscular, As needed, low blood sugar, low blood sugar, Starting Wed08/30/19 at 1725, Give if patient NPO and no IV access. May give IM or SQ in arm and turn patient on side. Reconstitute powder for injection by adding 1 mL of knot saw operator-supplied sterile diluent or sterile water for injection [...] for injection by adding 1 mL of knot saw operator-supplied sterile diluent o r sterile water for [...] less than 70 mg/dL., 09/07/2019 2:48 PM PAPER STRIPPER 200 mg guaiFENesin (ROBITUSSIN) 100 mg/5 mL Given syrup 200 mg 200 mg, Oral, Every 4 hours PRN, cough, Starting Wed08/30/19 at 1724 200 mg Given 09/07/2019 10:03 AM PAPER STRIPPER 200 mg Given 09/03/2019 3:05 AM PAPER STRIPPER 09/07/2019 10:05 AM PAPER STRIPPER 25 mg hydroCHLOROthiazide (HYDRODIURIL) tablet Given 25 mg 25 mg, Oral, Daily, First dose on Wed09/05/19 at 0900 25 mg Given 09/06/2019 9:24 AM PAPER STRIPPER 25 mg Given 09/05/2019 8:32 AM PAPER STRIPPER 09/07/2019 10:03 AM PAPER STRIPPER 0.125 mg hyoscyamine (LEVSIN/SL) SL tablet 0.125 Given mg 0.125 mg, Sublingual, Every 4 hours, First dose on Wed09/06/19 at 1200, For bladder spasms, 0.125 mg Given 09/07/2019 4:25 AM PAPER STRIPPER 0.125 mg Given 09/07/2019 12:48 AM PAPER STRIPPER 09/06/2019 8:51 PM PAPER STRIPPER 25 Units Right Lo wer Abdomen insulin glargine (LANTUS) injection 25 Given Units 25 Units, Subcutaneous, Nightly, First dose (after last modification) on Wed08/31/19 at 2100 25 Units Right Arm Given 09/05/2019 8:06 PM PAPER STRIPPER 25 Units Left Lower Abdomen Given 09/04/2019 8:33 PM PAPER STRIPPER 09/07/2019 2:29 PM PAPER STRIPPER 9 Units Right Lo wer Abdomen insulin [...] Left Upper Abdomen Given 09/07/2019 6:23 AM PAPER STRIPPER 12 Units Right Upper Abdomen Given 09/07/2019 12:48 AM PAPER STRIPPER 08/30/2019 2:46 PM PAPER STRIPPER 2.5 mL Operativ e Site iohexol (OMNIPAQUE) 300 mg iodine/mL Given injection As needed, Starting Wed08/30/19 at 1446, Intra-op 09/07/2019 1:22 PM PAPER STRIPPER 3 mL ipratropium-albuterol (DUO-NEB) 0.5-3 Given mg/3 mL nebulizer solution 3 mL 3 mL, Inhalation, Every 4 hours, First dose (after last modification) on Wed09/06/19 at 0100 3 mL Given 09/07/2019 8:25 AM PAPER STRIPPER 3 mL Given 09/07/2019 3:51 AM PAPER STRIPPER 09/07/2019 10:06 AM PAPER STRIPPER 2 capsules lactobacillus (CULTURELLE) 10 billion Given cell capsule 2 capsule, Oral, Daily, First dose on Wed08/30/19 at 1815 2 capsules Given 09/06/2019 9:23 AM PAPER STRIPPER 2 capsules Given 09/05/2019 8:33 AM PAPER STRIPPER magnesium sulfate IVPB 2 gram (premix) 2 [...] (if able to monitor)., 09/05/2019 8:06 PM PAPER STRIPPER 3 mg melatonin tablet 3 mg Given 3 mg, Oral, Nightly PRN, sleep, Startin g Wed08/30/19 at 1724, Give 3-4 hours prio r to planned bedtime., 09/07/2019 10:04 AM PAPER STRIPPER 100 mg metoprolol tartrate (LOPRESSOR) tablet Given 100 mg 100 mg, Oral, 2 times daily, First dose on Wed08/30/19 at 2100, Hold for sbp < 100 or hr < 50, 100 mg Given 09/06/2019 8:52 PM PAPER STRIPPER 100 mg Given 09/06/2019 9:23 AM PAPER STRIPPER miconazole nitrate (ALOE VESTA) 2 % ointment Topical, 3 times daily PRN, perineal or skin fold redness, Starting Wed08/30/19 at 1724, Consult wound care if no improvement within 3 days., ondansetron (ZOFRAN) injection 4 mg 4 mg, Intravenous, Every 6 hours PRN, nausea/vomiting (2nd line), Starting We 08/30/19 at 1724 09/07/2019 2:29 PM PAPER STRIPPER 1 tablet oxyCODONE-acetaminophen (PERCOCET) 5-325 Given mg 1 tablet 1 tablet, Oral, Every 4 hours PRN, moderate pain (pain score 4-6), Startin g Wed09/04/19 at 1011, Do not exceed 4 GM/DAY of acetaminophen. If 65 or olde r do not exceed 3 GM/DAY. If chronic alcoholic do not exceed 2 GM/DAY., 1 tablet Given 09/07/2019 10:07 AM PAPER STRIPPER 1 tablet Given 09/07/2019 2:40 AM PAPER STRIPPER 09/07/2019 11:33 AM PAPER STRIPPER 40 mg pantoprazole (PROTONIX) injection 40 mg Given 40 mg, Intravenous, 2 times daily, Firs t dose on Wed08/30/19 at 2100, Dilute with 10 mL of 0.9% NaCl. DO NOT REFRIGERATE, 40 mg Given 09/06/2019 8:51 PM PAPER STRIPPER 40 mg Given 09/06/2019 9:23 AM PAPER STRIPPER 09/07/2019 10:07 AM PAPER STRIPPER 100 mg phenazopyridine (PYRIDIUM) tablet 100 mg Given 100 mg, Oral, 3 times daily PRN, dysuria, Starting Wed09/06/19 at 0924 polyethylene glycol (GLYCOLAX) packet 1 7 g [...] of 20 mEq/hr through a central line., 09/07/2019 10:06 AM PAPER STRIPPER 30 mg predniSONE (DELTASONE) tablet 30 mg Given 30 mg, Oral, Daily, Indications: prevention of cardiac transplant rejection, First dose (after last modification) on Wed09/05/19 at 0900, Give with food to reduce GI upset, 30 mg Given 09/06/2019 9:23 AM PAPER STRIPPER 30 mg Given 09/05/2019 8:33 AM PAPER STRIPPER prochlorperazine (COMPAZINE) injection 2.5-5 mg 2.5-5 mg, [...] 12 hours PRN, nausea/vomiting (1st line), Starting 08/30/19 at 1724, Administer if patient does not have IV access and refuses IM injection., sodium chloride (OCEAN) 0.65 % nasal spray 1 spray 1 spray, Each Nare, As needed, irritation, Starting Wed08/30/19 at 1724 08/30/2019 2:46 PM PAPER STRIPPER 1,000 mL sterile water irrigation irrigation Given solution As needed, Starting Wed08/30/19 at 1445, Intra-op 3,000 mL Given 08/30/2019 2:45 PM PAPER STRIPPER 09/07/2019 10:04 AM PAPER STRIPPER 0.4 mg tamsulosin (FLOMAX) 24 hr capsule 0.4 mg Given 0.4 mg, Oral, Daily, First dose on Wed08/30/19 at 1800, DO NOT CRUSH OR CHEW., 0.4 mg Given 09/06/2019 9:24 AM PAPER STRIPPER 0.4 mg Given 09/05/2019 8:32 AM PAPER STRIPPER 09/07/2019 10:04 AM PAPER STRIPPER 2 mg tolterodine (DETROL) tablet 2 mg Given 2 mg, Oral, 2 times daily, First dose o n Wed08/30/19 at 2100 2 mg Given 09/06/2019 9:51 PM PAPER STRIPPER 2 mg Given 09/06/2019 9:24 AM PAPER STRIPPER documented in this encounter Additional Health Concerns Resolved Time Infection Noted Time 08/30/2019 1:09 PM PAPER STRIPPER Influenza - Rule Out 08/30/2019 11:32 AM PAPER STRIPPER 09/17/2019 8:17 AM PAPER STRIPPER RSV 08/31/2019 6:35 PM PAPER STRIPPER documented as of this encounter
--- OUTSIDE RECORDS SUMMARY | 2019-11-28 22:18 | XMS REPORT | Encounter Summary ---
Author Author [facility] Organization [facility] Address Unknown Phone Unavailable Care Team Providers Care Transformer Shop Supervisor Name Role Phone Ebony Sharp MD PCP Encounter Details Care Team Description Date [place] [address] [place] [address] [phone] 07/24/2019 Telephone [facility] [address] [place], [place] [id number] Social History Date Tobacco Use Types Packs/Day [...] encounter Miscellaneous Notes * Telephone Encounter - Marleen Arellano CMA - 08/10/2019 8:49 AM AUTISTIC TEACHER Spoke with the pharmacist, cancelled refill for Cipro and oxycodone, patient no longer needs STIC TEACHER * Telephone Encounter - Ying Malik - 07/24/2019 10:05 AM AUTISTIC TEACHER Scheduled for Cysto, L RPG, URS, Laser Litho, Stent Placement @ [facility]/OP 07/23 09/10 09:30, s/w Anamaria, s/w Brock/VERNON, s/w patient, aware/agreeable. la STIC TEACHER documented in this encounter Plan of Treatment Care Team Description [place] [address] [place] [address] [phone] 02/29/2020 Office Visit Urology documented as of this encounter Visit Diagnoses Not on filedocumented in this encounter
--- OUTSIDE RECORDS SUMMARY | 2019-11-28 22:19 | XMS REPORT | Encounter Summary ---
Author Author [facility] Organization [facility] Address Unknown Phone Unavailable Care Team Providers Care Training And Development Specialist Name Role Phone Ebony Sharp MD PCP Reason for Visit * Reason Comments Other Encounter Details Care Team Description Date Type Department Ebony Sharp MD [address] [facility] [address] [place] [address] [phone] Other 07/17/2019 Refill [facility] (walk-in clinic) [address] [facility] [address] [place], [place] [address] Social History Date Tobacco Use Types Packs/Day [...] Description Date [place] [address] [place] [address] [phone] 02/29/2020 Office Visit Urology documented as of this encounter Visit Diagnoses Diagnosis Chronic obstructive pulmonary disease, unspecified COPD type (HCC) documented in this encounter
--- OUTSIDE RECORDS SUMMARY | 2019-11-28 22:19 | XMS REPORT | Encounter Summary ---
Author Author [facility] Organization [facility] Address Unknown Phone Unavailable Care Team Providers Care Video Game Script Writer Name Role Phone Ebony Sharp MD PCP Encounter Details Care Team Description Date [place] [address] [place] [address] [phone] Nephrolithiasis (Primary Dx) 07/13/2019 Orders Only [facility] [address] [place] [address] Social History Date Tobacco Use Types Packs/Day [...] Description Date [place] [address] [place] [address] [phone] 02/29/2020 Office Visit Urology documented as of this encounter Visit Diagnoses Diagnosis Nephrolithiasis Calculus of kidney documented in this encounter
--- OUTSIDE RECORDS SUMMARY | 2019-11-28 22:19 | XMS REPORT | Encounter Summary ---
Author Author [facility] Organization [facility] Address Unknown Phone Unavailable Care Team Providers Care Direct Service Professional Name Role Phone Ebony Sharp MD PCP Encounter Details Care Team Description Date [place] [address] [place] [address] [phone] Kidney stone 07/14/2019 Imaging [facility] Radiol ogy Appointment [address] [place] [phone] Social History Date Tobacco Use Types Packs/Day [...] Description Date [place] [address] [place] [address] [phone] 02/29/2020 Office Visit Urology documented as of this encounter Procedures Comments Procedure Name Priority Date/Time Associated Diag nosis XR ABDOMEN SINGLE VIEW AP Routine 07/14/2019 Kidn ey stone 1:32 PM TELEPRINTER INSTALLER documented in this encounter Results * XR Abdomen single view AP (07/14/2019 1:32 PM TELEPRINTER INSTALLER) Specimen Impressions Performed At 1.Left sided double-J ureteral stent. There is amorph ous calcifications MCKESSON overlying the inferior left renal shado w measuring up to 1.5 cm 2. Non-obstructive bowel gas pattern. Dictation location: [facility] Narrative Performed At Patient: ISIAH BENÍTEZ Sex#: F #: [id number] Jose #: [id number] Location: XR 9 Procedure Requested: [id number] XR ABDOM EN SINGLE VIEW AP Reason for Exam: Kidney stone Exam Ordered: 07/14/2019 1 327 Exam Date/Time: 07/14/2019 13 32 Begin exam date/time: 07/14/2019 13 28 XR ABDOMEN SINGLE VIEW AP Indication: Kidney stone Exam Date: 07/14/2019 3:10 PM Comparison: 06/21/2019, 06/28/2019. Findings: Left sided double-J ureteral stent. There is amorphous calcifications overlying the inferior l eft renal shadow measuring up to 1.5 cm Non-obstructive bowel gas pattern. Mild amount of colonic stool. No signs of free intraperitoneal air on th e supine image. No abnormal abdominal masses or calcifications are seen. The bony structures are normal. Procedure Note Interface, Rad Results In - 07/14/2019 3:18 PM TELEPRINTER INSTALLER Patient: ISIAH BENÍTEZ Sex#: F #: [id number] Jose#: [id number] Location: XR Procedure Requested: [id number] XR ABDOMEN SINGLE VIEW AP Reason for Exam: Kidney stone Exam Ordered: 07/14/2019 1327 Exam Date/Time: 07/14/2019 1332 Begin exam date/time: 07/14/2019 1328 XR ABDOMEN SINGLE VIEW AP Indication: Kidney stone Exam Date: 07/14/2019 3:10 PM Comparison: 06/21/2019, 06/28/2019. Findings: Left sided double-J ureteral stent. There is amorphous calcifications overlying the inferior left renal shadow measuring up to 1.5 cm Non-obstructive bowel gas pattern. Mild amount of colonic stool. No signs of free intraperitoneal air on the supine image. No abnormal abdominal masses or calcifications are seen. The bony structures are normal. IMPRESSION 1.Left sided double-J ureteral stent. Th ere is amorphous calcifications overlying the inferior left renal shadow measuring up to 1.5 cm 2. Non-obstructive bowel gas pattern. Dictation location: [facility] Performing Organization Address City/State/Zipcode Ph one Number LEVI documented in this encounter Visit Diagnoses Diagnosis Kidney stone Calculus of kidney documented in this encounter
--- OUTSIDE RECORDS SUMMARY | 2019-11-28 22:19 | XMS REPORT | Encounter Summary ---
Author Author [facility] Organization [facility] Address Unknown Phone Unavailable Care Team Providers Care Transmission Maintenance Supervisor Name Role Phone Ebony Sharp MD PCP Reason for Referral * Diagnostic Imaging (Routine) Referred By Contact Referred To Contact Status Reason Specialty Diagnoses / [place] [address] [place] [address] Pending Review Diagnoses Pain P rocedures FL Retrograde Urography in OR Reason for Visit * Auth/Cert Referred By Contact Referred To Contact Status Reason Specialty Diagnoses / Procedures Diagnoses R10.9 P rocedures CYSTO/URETERO W/LITHOTRIPSY &INDWELL STENT INSRT CYSTOSCOPY, LEFT RETROGRADE PYELOGRAM, LEFT URETEROSCOPY, LASER LITHOTRIPSY, LEFT URETERAL STENT PLACEMENT Encounter Details Care Team Description [place] [address] [place] [address] [phone] Pain 06/28/2019 [facility] [address] [place] [address] Social History Date Tobacco Use Types Packs/Day [...] tablet (40 mg total) by mouth daily. 08/26/2017 insulin [...] OXYGEN THERAPY 2 L/min as 0 needed. vit A/vit Take by mouth 0 C/biotin/zinc/copper daily. ([id number],VIT A,C-BIOTIN, ORAL) 08/26/2017 08/28/2019 albuterol (VENTOLIN HFA) INHALE 1 PUFF 18 g 2 90 mcg/actuation HFA EVERY 4 HOURS inhaler NEEDED FOR WHEEZING 03/13/2019 07/28/2019 BREO ELLIPTA 200-25 INHALE 1 PUFF 60 each 0 mcg/dose INHALER BY MOUTH DAILY 06/06/2019 07/28/2019 cephalexin (KEFLEX) 500 0 MG capsule 06/28/2019 07/14/2019 ciprofloxacin HCl (CIPRO) Take 1 tablet 14 tablet 0 500 MG tabletIndications: (500 mg UTI total) by mouth 2 (two) times a day. 04/19/2019 07/14/2019 citalopram (CELEXA) 20 mg TAKE 1 TABLET 90 tablet 0 tablet BY MOUTH DAILY 06/17/2019 10/27/2019 cyclobenzaprine Take 1 tablet 90 tablet 0 (FLEXERIL) 10 MG tablet (10 mg total) by mouth 3 (three) times a day as needed for muscle spasms. 04/25/2019 07/17/2019 gabapentin (NEURONTIN) TAKE 2 540 capsule 0 300 MG capsule CAPSULES BY MOUTH THREE TIMES DAILY 06/28/2019 07/28/2019 HYDROcodone-acetaminophen Take 1 tablet 20 tablet 0 (NORCO) 7.5-325 mg per by mouth tablet every 4 (four) hours as needed for pain. Max Daily Dose: 6 tablets 06/17/2019 09/23/2019 insulin glargine (LANTUS ADMINISTER 20 10 mL 5 U-100 INSULIN) 100 UNITS UNDER unit/mL injection THE SKIN EVERY NIGHT. E11.9 10/20/2018 07/17/2019 metoprolol tartrate TAKE 1 180 tablet 1 (LOPRESSOR) 100 MG tablet TABLET(100 MG) BY MOUTH TWICE DAILY 06/07/2019 07/28/2019 ondansetron (ZOFRAN-ODT) 0 4 MG disintegrating tablet 06/28/2019 08/02/2019 oxybutynin (DITROPAN) 5 Take 1 tablet 30 tablet 0 MG tabletIndications: (5 mg total) bladder hyperactivity, by mouth urinary urge incontinence every 8 (eight) hours as needed. 06/28/2019 07/06/2019 phenazopyridine Take 1 tablet 9 tablet 0 (PYRIDIUM) 200 MG (200 mg tabletIndications: total) by dysuria mouth 3 (three) times a day as needed for pain. documented as of this encounter Plan of Treatment Care Team Description Date [place] [address] [place] [address] [phone] 02/29/2020 Office Visit Urology documented as of this encounter Procedures Comments Procedure Name Priority Date/Time Associated Diag nosis FL RETROGRADE UROGRAPHY Routine 06/28/2019 Pain IN OR 10:25 AM WEB ANALYTICS DEVELOPER documented in this encounter Results * FL Retrograde Urography in OR (06/28/2019 10:25 AM WEB ANALYTICS DEVELOPER) Specimen Impressions Performed At Fluoroscopic support for the urology services. Becky teresa see operative LEVI report for details. READING SITE: [facility] Narrative Performed At Patient: ISIAH BENÍTEZ YAIMAJEFFREY Sex#: F #: [id number] Jose #: [id number] Location: [facility] 1554 Procedure Requested: [id number] FL RETRO GRADE UROGRAPHY IN OR Reason for Exam: Pain Exam Ordered: 06/28/2019 06 52 Exam Date/Time: 06/28/2019 102 5 Begin exam date/time: 06/28/2019 091 0 FL RETROGRADE UROGRAPHY IN OR INDICATION: Pain TECHNIQUE: Fluoroscopic guidance was ut ilized by the surgical services with images submitted for interpretatio n. No radiologist was present for the procedure. COMPARISON: CT abdomen and pelvis Octob 2018. FLUORO TIME: 37.8 seconds. NUMBER OF SPOT IMAGES: 2. FINDINGS: Spot fluoroscopic images demo nstrate injection of contrast into the left renal collecting system w ith proximal portion of the nephroureteral stent seen. Procedure Note Interface, Rad Results In - 06/28/2019 11:15 AM WEB ANALYTICS DEVELOPER Patient: ISIAH BENÍTEZ Sex#: F #: [id number] Jose#: [id number] Location: [facility] Procedure Requested: [id number] FL RETROGRADE UROGRAPHY IN OR Reason for Exam: Pain Exam Ordered: 06/28/2019 0652 Exam Date/Time: 06/28/2019 1025 Begin exam date/time: 06/28/2019 0910 FL RETROGRADE UROGRAPHY IN OR INDICATION: Pain TECHNIQUE: Fluoroscopic guidance was utilized by the surgical services with images submitted for interpretation. No radiologist was present for the procedure. COMPARISON: CT abdomen and pelvis June 16, 2019. FLUORO TIME: 37.8 seconds. NUMBER OF SPOT IMAGES: 2. FINDINGS: Spot fluoroscopic images demonstrate injection of contrast into the left renal collecting system with proximal portion of the nephroureteral stent seen. IMPRESSION Fluoroscopic support for the urology services. Please see operative report for details. READING SITE: [facility] Address City/State/Zipcode Ph one Number LEVI documented in this encounter Visit Diagnoses Diagnosis Pain Generalized pain documented in this encounter
--- OUTSIDE RECORDS SUMMARY | 2019-11-28 22:19 | XMS REPORT | Encounter Summary ---
Author Author [facility] Organization [facility] Address Unknown Phone Unavailable Care Team Providers Care Education Professional Name Role Phone Ebony Sharp MD PCP Reason for Visit * Reason Comments acute Encounter Details Care Team Description Date Type Department Fiorella Jackson RN acute 07/06/2019 Telephone [facility] [address] [place] [address] Social History Date Tobacco Use Types Packs/Day [...] Telephone Encounter - Fiorella Jackson RN - 07/10/2019 1:44 PM PROCESSING SPECIALIST Patient called and lm about flank pain and pyridium. Called patient back and lm no more pyridium ! She can take otc azo if needed. Ad vised her to call the office for update of sx. ESSING SPECIALIST * Telephone Encounter - Fiorella Jackson RN - 07/06/2019 12:55 PM PROCESSING SPECIALIST [email or web address] ESSING SPECIALIST * Telephone Encounter - Fiorella Jackson RN - 07/06/2019 10:11 AM PROCESSING SPECIALIST Notified patient and pharmacy. ESSING SPECIALIST * Telephone Encounter - Fiorella Jackson RN - 07/06/2019 9:57 AM PROCESSING SPECIALIST Patient calling, s/p 06/28 CYSTOSCOPY, LEFT RETROGRADE PYELOGRAM, LEFT URETEROSC OPY, LEFT HOLMIUM LASER LITHOTRIPSY WITH STONE EXTRACTION, AND LEFT URETERAL JAY NT PLACEMENT She states she is still having bleeding and pain with urination. Advised normal to have bleeding with a stent and to drink plenty of fluids. She also reports dy suria and is out of pyridium. Refill sent, she will call back as needed. Please advise if needed. Thanks ! ESSING SPECIALIST documented in this encounter Plan of Treatment Care Team Description [place] [address] [place] [address] [phone] 02/29/2020 Office Visit Urology documented as of this encounter Visit Diagnoses Not on filedocumented in this encounter
--- OUTSIDE RECORDS SUMMARY | 2019-11-28 22:19 | XMS REPORT | Encounter Summary ---
Author Author [facility] Organization [facility] Address Unknown Phone Unavailable Care Team Providers Care Asbestos Brake Lining Finisher Helper Name Role Phone Ebony Sharp MD PCP Reason for Visit * Reason Comments Other Encounter Details Care Team Description Date Type Department Ebony Sharp MD [address] [facility] [address] [place] [address] [phone] Other 07/14/2019 Refill [facility] (walk-in clinic) [address] [facility] [address] [place], [place] [id number] Social History Date Tobacco Use Types Packs/Day [...] Description Date [place] [address] [place] [address] [phone] 02/29/2020 Office Visit Urology documented as of this encounter Visit Diagnoses Not on filedocumented in this encounter
--- OUTSIDE RECORDS SUMMARY | 2019-11-28 22:19 | XMS REPORT | Encounter Summary ---
Author Author [facility] Organization [facility] Address Unknown Phone Unavailable Care Team Providers Care Arcade Games Mechanic Name Role Phone Ebony Sharp MD PCP Reason for Visit * Auth/Cert Referred By Contact Referred To Contact Status Reason Specialty Diagnoses / Procedures Diagnoses R10.9 P rocedures CYSTO/URETERO W/LITHOTRIPSY &INDWELL STENT INSRT CYSTOSCOPY, LEFT RETROGRADE PYELOGRAM, LEFT URETEROSCOPY, LASER LITHOTRIPSY, LEFT URETERAL STENT PLACEMENT Encounter Details Care Team Description Date [place] [address] [place] [address] [phone] CYSTOSCOPY, LEFT RETROGRADE PYELOGRAM, L EFT URETEROSCOPY, LEFT HOLMIUM LASER LITHOTRIPSY WITH STONE EXTRACTION, AND LEFT URETERAL STENT PLACEMENT 06/28/2019 Surgery [facility] [address] [place] [address] Social History Date Tobacco Use Types Packs/Day [...] Signs Reading Time Taken Comments Vital Sign 152/95 06/28/2019 11:30 AM DATA WAREHOUSING MANAGER Blood Pressure 78 06/28/2019 11:30 AM DATA WAREHOUSING MANAGER Pulse 36.6 C (97.8 F) 06/28/2019 10:15 AM DATA WAREHOUSING MANAGER Temperature 13 06/28/2019 11:30 AM DATA WAREHOUSING MANAGER Respiratory Rate 93% 06/28/2019 11:30 AM DATA WAREHOUSING MANAGER Oxygen Saturation - - Inhaled Oxygen Concentration 101.2 kg (223 lb) 06/22/2019 10:26 AM CDT Weight 152.4 cm (5') 06/22/2019 10:26 AM CDT Height 43.55 06/22/2019 10:26 AM CDT Body Mass Index documented in this encounter Discharge Instructions * Pre-Procedure Instructions* Rosy Hart RN - 06/22/2019 10:41 AM CDT Current Outpatient Medications Medication Sig Note: vit A/vit C/biotin/zinc/copper ([id number],VIT A,C-BIOTIN, ORAL) Take by mouth daily. Note:stop taking prior to surgery until advised to resume after viramontes rgery albuterol (VENTOLIN HFA) 90 mcg/actuation HFA inhaler INHALE 1 PUFF EVERY 4 HOURS NEEDED FOR WHEEZING Note:use if needed and bring inhaler with you on da y of surgery amitriptyline (ELAVIL) 25 MG tablet TAKE 1 TABLET BY MOUTH EVERY NIGHT Note: take as scheduled atorvastatin (LIPITOR) 40 MG tablet Take 1 tablet (40 mg total) by mouth jcarlos muhammad. (Patient taking differently: Take 40 mg by mouth nightly. ) Note:take as reagan eduled BREO ELLIPTA 200-25 mcg/dose INHALER INHALE 1 PUFF BY MOUTH DAILY Note:use a s scheduled, even on morning of surgery cephalexin (KEFLEX) 500 MG capsule Note:prescription has completed citalopram (CELEXA) 20 mg tablet TAKE 1 TABLET BY MOUTH DAILY Note:continue to take as scheduled cyclobenzaprine (FLEXERIL) 10 MG tablet Take 1 tablet (10 mg total) by mouth 3 (three) times a day as needed for muscle spasms. Note:can take if needed for muscle spasms, even on morning of surgery gabapentin (NEURONTIN) 300 MG capsule TAKE 2 CAPSULES BY MOUTH THREE TIMES D AILY Note:continue to take as scheduled, even on morning of surgery HYDROcodone-acetaminophen (NORCO) 5-325 mg per tablet Take 1 tablet by mouth every 6 (six) hours as needed for pain. Max Daily Dose: 4 tablets Note:may take if needed for pain control, even on morning of surgery insulin glargine (LANTUS U-100 INSULIN) 100 unit/mL injection ADMINISTER 20 UNITS UNDER THE SKIN EVERY NIGHT. E11.9 Note:continue to take in evening as sche duled insulin syringe (BD ULTRA-FINE) 0.3 mL 31 gauge x 5/16 Inject under the skin daily. use as directed Note: insulin syringe 0.3 mL 31 gauge x 5/16 USE DIRECTED Note: ipratropium-albuterol (DUO-NEB) 0.5-3 mg/3 mL nebulizer Inhale 3 mL 4 (four) times a day. (Patient taking differently: Inhale 3 mL 4 (four) times a day as n eeded. ) Note:may use if needed metoprolol tartrate (LOPRESSOR) 100 MG tablet TAKE 1 TABLET(100 MG) BY MOUTH TWICE DAILY Note:continue to take as scheduled, even on morning of surgery OXYGEN THERAPY 2 L/min as needed. Note:may use if needed, bring oxygen with you on day of surgery if being used documented in this encounter Medications at Time [...] A/vit Take by mouth 0 C/biotin/zinc/copper daily. ([id number],VIT A,C-BIOTIN, ORAL) 08/26/2017 08/28/2019 albuterol (VENTOLIN HFA) [...] for pain. documented as of this encounter Miscellaneous Notes * Operative Note - Darin Huber MD - 06/28/2019 10:07 AM DATA WAREHOUSING MANAGER Brief Operative Note Caren Ernestina Patten 06/28/2019 Event Time In Time Out Procedure / Incision Start 915 Pre-op Diagnosis: Right nephrolithiasis Post-op Diagnosis: Right nephrolithiasis Procedure: CYSTOSCOPY, LEFT RETROGRADE PYELOGRAM, LEFT URETEROSCOPY, LASER LITHOTRIPSY, LEF T URETERAL STENT PLACEMENT, Left - Urethra Surgeon(s) and Role: * Darin Huber MD - Primary Anesthesia Type: General Staff: Composition Tile Layer: Renaldo Menchaca RN Scrub Person: Estefany Correa Anesthesiologist: Medardo Pierce MD AUTOMATIC ENGRAVER: Rosa M White CRNA Findings: Large left lower pole stone Estimated Blood Loss: 10 mL Specimens: None Implants: Implant Name Type Inv. Item Serial No. Leaf Sorter Lot No. LRB No. Used Action IMPLANT STENT URETERAL CONTOUR 7FR X 24CM W/O GUID[employer]IRE 180-232/[id number] - [id number] Non-Tissue Implant IMPLANT STENT URETERAL CONTOUR 7FR X 24CM W/O GUIDWIR E [id number] [employer] [id number] Left 1 Implanted Complications: None Description of Procedures: On June 28, 2019 after consent was obtained patient was taken to the operatin g room placed in supine position. She is then placed under general anesthesia s he received prep of IV Kefzol for antibiotic coverage. She is in place in dorsa l lithotomy and her genitals were prepped and draped in normal sterile fashion. I began the procedure by inserting the 21 Cambodian rigid cystoscope transurethral without difficulty once in the bladder identified the left ureteral orifice. T his was then cannulated with a 5 Cambodian open-ended stent retrograde pyelogram de monstrated a normal caliber ureter and collecting system with a large stone in t he lower pole. I then advanced a sensor wire into the upper pole under fluorosc opic guidance. I withdrew the cystoscope. I then selected an 11-13-30 6 cm acc ess sheath and passes up the level of the UPJ without resistance under fluorosco pic guidance. Flexible ureteroscopy was then utilized. On nicholas pyeloscopy did n ot find a large stone in the lower pole. At this point a 272 m laser fiber wa s advanced through the ureteroscope I began to dusting the stone into multiple s mall fragments measuring 1 to 2 mm. Continue to do this for approximately 45 mi nutes unfortunately mucosa was quite erythematous and eventually had some mucosa l bleeding that made visualization difficult. At this point advance a sensor wi re through the ureteroscope in the upper pole. I withdrew the ureteroscope and the access sheath. I then selected a 7 Cambodian by 24 cm stent was passed to the renal pelvis under fluoroscopic guidance I did call the urinary bladder under di rect visual guidance. An 18 Cambodian Ballard catheter was placed in patient's bladd er was irrigated out. This is placed to gravity drainage. Darin Huber MD Date: 06/28/2019 Time: 10:08 AM WAREHOUSING MANAGER documented in this encounter Plan of Treatment Care Team Description Date [place] [address] [place] [address] [phone] 02/29/2020 Office Visit Urology documented as of this encounter Procedures Comments Procedure Name Priority Date/Time Associated Diag nosis GLUCOSE POC Routine 06/28/2019 10:20 AM DATA WAREHOUSING MANAGER CYSTOSCOPY, RETROGRADE 06/28/2019 R10.9 PYELOGRAM, URETEROSCOPY, 8:59 AM DATA WAREHOUSING MANAGER LASER LITHOTRIPSY, WITH URETERAL STENT PLACEMENT Special Needs HOLMIUM LASER ORDERED PER RADHA BUSTOS MEDICAREAntonio- ARMJEHOVAH 'S WITNESS- REFUSED BLOOD PRODUCTS SASHA WITH CPAP USE OCCASIONAL LY O2 PER NC USE PRN GLUCOSE POC Routine 06/28/2019 7:58 AM DATA WAREHOUSING MANAGER documented in this encounter Results * GLUCOSE POC (06/28/2019 10:20 AM DATA WAREHOUSING MANAGER) Only the most recent of 2 results within the time period is included. Glucose POC 263 (H) 70 - 100 mg/dL [facility] Specimen Performing Organization Address City/State/Zipcode Ph one Number [facility] Borges Urzeda [facility] [address] [facility]ENTER[facility] T, [place] [address] [facility] [address] [facility] [place] [address], [place] [phone] [facility] documented in this encounter Visit Diagnoses Not on filedocumented in this encounter Administered Medications Action Date Dose Rate Site Medication Order MAR Action albuterol (ACCUNEB) 2.5 mg/3 mL (0.083 %) nebulizer solution 2.5 mg 2.5 mg, Nebulization, Every 4 hours PRN , wheezing, Starting Wed06/28/19 at 1016, PACU (only) 06/28/2019 8:29 AM DATA WAREHOUSING MANAGER 20 mg famotidine (PEPCID) injection 20 mg Given 20 mg, Intravenous, Once, Wed06/28/19 a t 0830, For 1 dose, Pre-op 06/28/2019 10:59 AM DATA WAREHOUSING MANAGER 25 mcg fentaNYL (SUBLIMAZE) injection 25-50 mcg Given 25-50 mcg, Intravenous, Every 5 min PRN , pain, Starting Wed06/28/19 at 1016, PAC U (only), Give only if RR is greater than 8 breaths/min. Maximum of 200 mcg in 2 hours., 25 mcg Given 06/28/2019 10:46 AM DATA WAREHOUSING MANAGER 50 mcg Given 06/28/2019 10:37 AM DATA WAREHOUSING MANAGER 06/28/2019 11:26 AM DATA WAREHOUSING MANAGER 5 mg hydrALAZINE (APRESOLINE) injection 5 mg Given 5 mg, Intravenous, Once, Wed06/28/19 at 1145, For 1 dose, PACU (only) 06/28/2019 11:10 AM DATA WAREHOUSING MANAGER 2 tablets HYDROcodone-acetaminophen (NORCO) 5-325 Given mg per tablet 1-2 tablet 1-2 tablet, Oral, Every 4 hours PRN, moderate pain (pain score 4-6), Startin g Wed06/28/19 at 1013, PACU (only), Do no t exceed 4 GM/DAY of acetaminophen. If 6 5 or older do not exceed 3 GM/DAY. If chronic alcoholic do not exceed 2 GM/DAY., 06/28/2019 9:29 AM DATA WAREHOUSING MANAGER 50 mL Operativ e Site iohexol (OMNIPAQUE) 300 mg iodine/mL Given injection As needed, Starting Wed06/28/19 at 0929 , Intra-op 06/28/2019 11:28 AM DATA WAREHOUSING MANAGER 5 mg labetalol (NORMODYNE,TRANDATE) injection Given 5 mg 5 mg, Intravenous, Once, Wed06/28/19 at 1145, For 1 dose, PACU (only) 06/28/2019 8:29 AM DATA WAREHOUSING MANAGER 50 mL/hr 50 mL/hr lactated ringers infusion New Bag 50 mL/hr, Intravenous, Continuous, Starting Wed06/28/19 at 0830, For 48 hours, Pre-op 06/28/2019 9:30 AM DATA WAREHOUSING MANAGER 1 application Operativ e Site lidocaine (XYLOCAINE) 2 % urethral jelly Given As needed, Starting Wed06/28/19 at 0930 , Intra-op naloxone (NARCAN) injection 0.08 mg 0.08 mg, Intravenous, See admin instructions, Starting Wed06/28/19 at 1016, PACU (only), FOR RESPIRATORY RATE < 9/MIN: dilute 1 mL (0.4 mg) naloxone with 9 mL NS (total 10 mL) to make a 0.04 mg/mL dilution. Give 2 mL (0.08 mg ) of dilution every 2 minutes until respiratory [...] hours PRN, nausea/vomiting (3rd line), Starting We d 06/28/19 at 1016, PACU (only) prochlorperazine (COMPAZINE) injection 2.5-5 mg 2.5-5 mg, Intravenous, Every 4 hours PRN, nausea/vomiting (1st line), Starting Wed06/28/19 at 1016, PACU (only), May repeat 2.5 mg dose x 1 afte r 30 minutes if first dose ineffective. D o not exceed a total dose of 40 mg within a 24 hour period. Rate of administratio n should not exceed 5 mg/minute., prochlorperazine (COMPAZINE) injection 2.5-5 mg 2.5-5 mg, Intramuscular, Every 4 hours PRN, nausea/vomiting (1st line), Starting Wed06/28/19 at 1016, PACU (only), Administer if patient does not have IV access. May repeat 2.5 mg dose x 1 after 60 minutes if first dose ineffective. Do not exceed a total dose of 40 mg within a 24 hour period., prochlorperazine (COMPAZINE) suppositor y 25 mg 25 mg, Rectal, Every 12 hours PRN, nausea/vomiting (1st line), Starting We 06/28/19 at 1016, PACU (only), Administe r if patient does not have IV access and refuses IM injection., 06/28/2019 9:30 AM DATA WAREHOUSING MANAGER 3,000 mL Operativ e Site sodium chloride irrigation 3000 mL Given (bladder) (NS) 0.9 % As needed, Starting Wed06/28/19 at 0930 , Intra-op 3,000 mL Operative Site Given 06/28/2019 9:20 AM DATA WAREHOUSING MANAGER 06/28/2019 9:30 AM DATA WAREHOUSING MANAGER 1,000 mL Operativ e Site sterile water irrigation irrigation Given solution As needed, Starting Wed06/28/19 at 0930 , Intra-op documented in this encounter
--- OUTSIDE RECORDS SUMMARY | 2019-11-28 22:19 | XMS REPORT | Encounter Summary ---
Author Author [facility] Address Unknown Phone Unavailable Care Team Providers Care Second Vp Hr Assessment Name Role Phone Ebony Sharp MD PCP Reason for Referral * Surgical (Routine) Referred By Contact Referred To Contact Status Reason Specialty Diagnoses / [place] [address], [place] [address] [place] [address] [place] [address] Authorized Urology Diagnoses Nephrolithiasis P rocedures External Uro Surgery Reason for Visit * Reason Comments Nephrolithiasis F/U Encounter Details Care Team Description [place] [address] [place] [address] [phone] Nephrolithiasis (Primary Dx); Kidney stones; Renal calculus 07/14/2019 Procedure visit [facility] [address] [place], [place] [id number] Social History Date Tobacco Use Types Packs/Day [...] Signs Reading Time Taken Comments Vital Sign 162/78 07/14/2019 1:44 PM DESIGN CENTER CONSULTANT Blood Pressure 73 07/14/2019 1:44 PM DESIGN CENTER CONSULTANT Pulse - - Temperature - - Respiratory Rate - - Oxygen Saturation - - Inhaled Oxygen Concentration - - Weight - - Height - - Body Mass Index documented in this encounter Progress Notes * Darin Huber MD - 07/14/2019 1:50 PM DESIGN CENTER CONSULTANT Urology follow up note Darin Huber Encounter Date: 07/14/2019 2:00 PM Patient Demographic Information: Patient Name: Caren Patten Age: 68 y.o. Sex: female Date of : 1950 PCP: Ebony Sharp MD Physician requesting consultation: No ref. provider found Chief Complaint Patient presents with Nephrolithiasis F/U The primary encounter diagnosis was Nephrolithiasis. Diagnoses of Kidney stones and Renal calculus were also pertinent to this visit. HPI Pt presents for follow-up regarding kidney stones Pt does not have a family hx of kidney stones. Associated symptoms:flank pain and suprabubic pain The patient denies: Symptoms: fever, chills, nausea and vomiting Duration of most recent stone: weeks. Most recent treatment: Recent Tx of: Ureteroscopy and Litho/Stent Course of symptoms: worsening. Histories Allergies Allergen Reactions Lisinopril Anaphylaxis Metformin [...] each 0 cephalexin (KEFLEX) 500 MG capsule citalopram (CELEXA) 20 mg tablet Take 1 [...] Daily Dose: 4 tablets 12 tablet 0 HYDROcodone-acetaminophen (NORCO) 7.5-325 mg per tablet Take 1 tablet by tanna th every 4 (four) hours as needed for pain. Max Daily Dose: 6 tablets 20 tablet 0 insulin glargine (LANTUS U-100 INSULIN) 100 unit/mL injection ADMINISTER 20 UNITS UNDER THE SKIN EVERY NIGHT. E11.9 10 mL 5 insulin syringe (Edumedics ULTRA-FINE) 0.3 mL 31 gauge x 5/16 Inject under the skin daily. use as directed 100 each 0 insulin syringe 0.3 mL 31 gauge x 5/16 USE DIRECTED 100 each 1 ipratropium-albuterol (DUO-NEB) 0.5-3 mg/3 mL nebulizer Inhale 3 mL 4 (four) times a day. (Patient taking differently: Inhale 3 mL 4 (four) times a day as n eeded. ) 360 mL 11 methen-m.blue-s.mfxv-rnmwh-epd 118-10-40.8-36 mg cap Take 1 capsule by mouth every 8 (eight) hours as needed. 20 capsule 2 metoprolol tartrate (LOPRESSOR) 100 MG tablet TAKE 1 TABLET(100 MG) BY MOUTH TWICE DAILY 180 tablet 1 ondansetron (ZOFRAN-ODT) 4 MG disintegrating tablet oxybutynin (DITROPAN) 5 MG tablet Take 1 tablet (5 mg total) by mouth every 8 (eight) hours as needed. 30 tablet 0 OXYGEN THERAPY 2 L/min as needed. trospium (SANCTURA) 20 mg tablet Take 1 tablet (20 mg total) by mouth 2 (two ) times a day as needed. 30 tablet 1 vit A/vit C/biotin/zinc/copper (UFRU-KKWX-XECW,VIT A,C-BIOTIN, ORAL) Take by mouth daily. No current facility-administered medications for this visit. Review of Systems Review of Systems Constitutional: Negative for chills, fever and malaise/fatigue. Gastrointestinal: Negative for abdominal pain, nausea and vomiting. Genitourinary: Positive for flank pain. Negative for dysuria, frequency, hematur ia, urgency, urinating at night and difficulty emptying bladder. All other systems reviewed and are negative. LAB: No results found for this or any previous visit (from the past 24 hour(s)). Physical Exam Vitals: 07/14/19 1344 BP: (!) 162/78 Pulse: 73 Gen: Alert and oriented Abd: Soft, non-tender, non-distended Back: No CVA tenderness on the RIGHT, No CVA tenderness on LEFT Assessment/Plan Problem List Genitourinary Renal calculus Overview 06/21/2019 Snyder is a 68-year-old female with a few week history of left knee pain. She und erwent a CT scan at [facility] that demonstrated proximal a 1.5 cm [...] significant discomfort. - Left Ureteroscopy next week Relevant Medications HYDROcodone-acetaminophen (NORCO) 5-325 mg per tablet Kidney stones Relevant Medications HYDROcodone-acetaminophen (NORCO) 5-325 mg per tablet No follow-ups on file. Electronically signed by: Darin Huber 07/14/2019 2:00 PM GN CENTER CONSULTANT documented in this encounter Plan of Treatment Care Team Description [place] [address] [place] [address] [phone] 02/29/2020 Office Visit Urology documented as of this encounter Procedures Comments Procedure Name Priority Date/Time Associated Diag nosis POCT UA W MICRO ONLY Routine 07/14/2019 Nephrolit hiasis 2:00 PM DESIGN CENTER CONSULTANT documented in this encounter Results * POCT UA w Micro Only (07/14/2019 2:00 PM DESIGN CENTER CONSULTANT) Pathologist [facility] Appearance, Urine Glucose Urine 500 (A) Negative mg/dL Bilirubin Urine Small (A) Negative Ketones Urine Negative Negative Specific 1.030 1.001 - 1.030 [place], UA Hemoglobin Large (A) Negative Urine PH Urine 5.0 5.0 - 8.0 Protein Urine 300 (A) Negative Qual Urobilinogen 0.2 Negative EU/dL Urine Nitrite Urine Negative Negative Leukocyte Trace (A) Negative Esterase Microscopic Packed RBC Examination Specimen Urine * Culture, Surgical Urine (SLRL) (07/14/2019 1:59 PM DESIGN CENTER CONSULTANT) Isolate 1 4000 Cfu/ml (A) [facility] Isolate 1 [place] albicans (A) [facility] Isolate 1 Susceptibility To Follow (A) [facility] Isolate 1 In the absence of symptoms, [facility] [place] is generally Hospital Lab considered normal ciera. No therapy indicated unless high risk (, or neutropenic) or undergoing urologic procedure. If Ballard catheter present, remove or replace when able. (A) Isolate 2 1000 Cfu/ml (A) [facility] Isolate 2 Staphylococcus epidermidis (A) [facility] Isolate 3 >100,000 Cfu/ml (A) [facility] Isolate 3 Lactobacillus jensenii (A) [facility] Isolate 3 No susceptibility testing done [facility] on this isolate (A) Hospital Lab Isolate 4 >100,000 Cfu/ml (A) [facility] Isolate 4 Actinomyces neuii (A) [facility] Isolate 4 No susceptibility testing done [facility] on this isolate (A) Hospital Lab Specimen Urine Antibiotic Method Susceptibility Organism FLUCONAZOLE <=1: Sensitive [place] albicans VORICONAZOLE <=0.12: Sensitive [place] albicans VANCOMYCIN 1: Sensitive Staphylococcus epidermidis NITROFURANTOIN <=16: Sensitive Staphylococcus epidermidis OXACILLIN >1: Resistant Staphylococcus epidermidis TETRACYCLINE 1: Sensitive Staphylococcus epidermidis Performing Organization Address City/State/Zipcomd Ph one Number [address] [address] LABORATORIES [facility] [address] [place] [address] documented in this encounter Visit Diagnoses Diagnosis Nephrolithiasis Calculus of kidney Kidney stones Calculus of kidney Renal calculus Calculus of kidney documented in this encounter
--- OUTSIDE RECORDS SUMMARY | 2019-11-28 22:19 | XMS REPORT | Encounter Summary ---
Author Author [facility] Organization [facility] Address Unknown Phone Unavailable Care Team Providers Care Sales Support Manager Name Role Phone Ebony Sharp MD PCP Encounter Details Care Team Description Date [place] [address] [place] [address] [phone] 07/13/2019 Telephone [facility] [address], [place] [id number] Social History Date Tobacco Use Types Packs/Day [...] Telephone Encounter - Marleen Arellano CMA - 07/13/2019 2:08 PM MECHANICAL ENGINEERING TECHNICIAN No HIPPA form in chart left a message stating to return phone call regarding sandy roblero appointment ANICAL ENGINEERING TECHNICIAN documented in this encounter Plan of Treatment Care Team Description Date [place] [address], [place] [address] [phone] 02/29/2020 Office Visit Urology documented as of this encounter Visit Diagnoses Not on filedocumented in this encounter
--- OUTSIDE RECORDS SUMMARY | 2019-11-28 22:19 | XMS REPORT | Encounter Summary ---
Author Author [facility] Organization [facility] Address Unknown Phone Unavailable Care Team Providers Care Boom Tender Name Role Phone Ebony Sharp MD PCP Encounter Details Care Team Description Date [place] [address] [place] [address] [phone] [facility] [address] [place] [address] Social History Date Tobacco Use Types Packs/Day [...] A/vit Take by mouth 0 C/biotin/zinc/copper daily. ([id number],VIT A,C-BIOTIN, ORAL) 08/26/2017 08/28/2019 albuterol (VENTOLIN HFA) INHALE 1 PUFF 18 g 2 90 mcg/actuation HFA EVERY 4 HOURS inhaler NEEDED FOR WHEEZING 03/13/2019 07/28/2019 BREO ELLIPTA 200-25 INHALE 1 PUFF 60 each 0 mcg/dose INHALER BY MOUTH DAILY 06/06/2019 07/28/2019 cephalexin (KEFLEX) 500 0 MG capsule 06/17/2019 10/27/2019 cyclobenzaprine Take 1 tablet 90 tablet 0 (FLEXERIL) 10 MG tablet (10 mg total) by mouth 3 (three) times a day as needed for muscle spasms. 04/25/2019 07/17/2019 gabapentin (NEURONTIN) TAKE 2 540 capsule 0 300 MG capsule CAPSULES BY MOUTH THREE TIMES DAILY 07/14/2019 08/02/2019 HYDROcodone-acetaminophen Take 1 tablet 12 tablet 0 (NORCO) 5-325 mg per by mouth tablet every 6 (six) hours as needed for pain. Max Daily Dose: 4 tablets 06/28/2019 07/28/2019 HYDROcodone-acetaminophen Take 1 tablet 20 tablet 0 (NORCO) 7.5-325 mg per by mouth tablet every 4 (four) hours as needed for pain. Max Daily Dose: 6 tablets 06/17/2019 09/23/2019 insulin glargine (LANTUS ADMINISTER 20 10 mL 5 U-100 INSULIN) 100 UNITS UNDER unit/mL injection THE SKIN EVERY NIGHT. E11.9 07/14/2019 07/28/2019 premphoeugenia-phsa Take 1 20 capsule 2 l-hyo 118-10-40.8-36 mg capsule by capIndications: Dysuria mouth every 8 (eight) hours as needed. 10/20/2018 07/17/2019 metoprolol tartrate TAKE 1 180 tablet 1 (LOPRESSOR) 100 MG tablet TABLET(100 MG) BY MOUTH TWICE DAILY 06/07/2019 07/28/2019 ondansetron (ZOFRAN-ODT) 0 4 MG disintegrating tablet 06/28/2019 08/02/2019 oxybutynin (DITROPAN) 5 Take 1 tablet 30 tablet 0 MG tabletIndications: (5 mg total) bladder hyperactivity, by mouth urinary urge incontinence every 8 (eight) hours as needed. 07/14/2019 08/02/2019 trospium (SANCTURA) 20 mg Take 1 tablet 30 tablet 1 tabletIndications: (20 mg total) bladder hyperactivity, by mouth 2 urinary urgency (two) times a day as needed. documented as of this encounter Plan of Treatment Care Team Description Date [place] [address] [place] [address] [phone] 02/29/2020 Office Visit Urology documented as of this encounter Procedures Comments Procedure Name Priority Date/Time Associated Diag nosis CULTURE, SURGICAL URINE Routine 07/14/2019 Nephro lithiasis 1:59 PM INDUSTRIAL TECHNOLOGY EDUCATION TEACHER documented in this encounter Results * Culture, Surgical Urine (SLRL) (07/14/2019 1:59 PM INDUSTRIAL TECHNOLOGY EDUCATION TEACHER) Isolate 1 4000 Cfu/ml (A) [facility] Isolate 1 [place] albicans (A) [facility] Isolate 1 Susceptibility To Follow (A) [facility] Isolate 1 In the absence of symptoms, [facility] [place] is generally Hospital Lab considered normal ciera. No therapy indicated unless high risk (, or neutropenic) or undergoing urologic procedure. If Ballard catheter present, remove or replace when able. (A) Isolate 2 1000 Cfu/ml (A) [facility] Isolate 2 Staphylococcus epidermidis (A) [facility] Isolate 3 >100,000 Cfu/ml (A) [facility] Isolate 3 Lactobacillus jensenii (A) [facility] Isolate 3 No susceptibility testing done [facility] on this isolate (A) Hospital Lab Isolate 4 >100,000 Cfu/ml (A) [facility] Isolate 4 Actinomyces neuii (A) [facility] Isolate 4 No susceptibility testing done [facility] on this isolate (A) Hospital Lab Specimen Urine Antibiotic Method Susceptibility Organism FLUCONAZOLE <=1: Sensitive [place] albicans VORICONAZOLE <=0.12: Sensitive [place] albicans VANCOMYCIN 1: Sensitive Staphylococcus epidermidis NITROFURANTOIN <=16: Sensitive Staphylococcus epidermidis OXACILLIN >1: Resistant Staphylococcus epidermidis TETRACYCLINE 1: Sensitive Staphylococcus epidermidis Performing Organization Address City/State/[facility] Ph one Number [address] [address] LABORATORIES [facility] [address] [place] [address] documented in this encounter Visit Diagnoses Diagnosis Nephrolithiasis Calculus of kidney documented in this encounter
--- OUTSIDE RECORDS SUMMARY | 2019-11-28 22:20 | XMS REPORT | Encounter Summary ---
Author Author [facility] Organization [facility] Address Unknown Phone Unavailable Care Team Providers Care Work Over Rig Operator Name Role Phone Ebony Sharp MD PCP Reason for Visit * Reason Comments Other Encounter Details Care Team Description Date Type Department Ebony Sharp MD [address] [facility] [address] [place] [address] [phone] Other 04/17/2019 Refill [facility] y [facility] (walk-in clinic) [address] [facility] [address] [place], [place] [id number] Social History Date Tobacco Use Types Packs/Day Years Used 1990 - 04/2011 Former Smoker Cigarettes 0.33 20 Smokeless Tobacco: Never Used Comments: quit 7 years ago Drinks/Week oz/Week Comments Alcohol Use 0-1 a month Yes Sex Assigned at Date Recorded Female 03/12/2019 7:45 AM CDT Industry Job Start Date Occupation Not on file Not on file Not on file Travel End Travel History Travel Start No recent travel history available. documented as of this encounter Plan of Treatment Care Team Description [place] [address] [place] [address] [phone] 02/29/2020 Office Visit Urology documented as of this encounter Visit Diagnoses Not on filedocumented in this encounter
--- OUTSIDE RECORDS SUMMARY | 2019-11-28 22:20 | XMS REPORT | Encounter Summary ---
Author Author [facility] Organization [facility] Address Unknown Phone Unavailable Care Team Providers Care Director Machine Name Role Phone Ebony Sharp MD PCP Reason for Referral * MRI/CAT/PET Scan (Routine) Referred By Contact Referred To Contact Status Reason Specialty Diagnoses / Procedures Ebony Sharp MD [address] [place] [address] Closed Radiology Diagnoses Left flank pain P rocedures CT Abdomen Pelvis wo contrast Reason for Visit * MRI/CAT/PET Scan (Routine) Referred By Contact Referred To Contact Status Reason Specialty Diagnoses / Procedures Ebony Sharp MD [address] [place] [address] Closed Radiology Diagnoses Left flank pain P rocedures CT Abdomen Pelvis wo contrast Encounter Details Care Team Description Date Type Department Ebony Sharp MD 20 [facility] [address] [place] [address] [phone] Left flank pain 06/16/2019 [facility] [address] [place] [address] Social History Date Tobacco Use Types Packs/Day [...] Date End Date Medication Sig Dispensed Refills 06/17/2019 atorvastatin (LIPITOR) 40 Take 1 tablet [...] OXYGEN THERAPY 2 L/min as 0 needed. 08/26/2017 08/28/2019 albuterol (VENTOLIN HFA) INHALE 1 PUFF 18 g 2 90 mcg/actuation HFA EVERY 4 HOURS inhaler NEEDED FOR WHEEZING 04/18/2019 06/24/2019 amitriptyline (ELAVIL) 25 TAKE 1 TABLET 90 tablet 0 MG tablet BY MOUTH EVERY NIGHT 01/06/2018 06/22/2019 amLODIPine (NORVASC) 2.5 Take 2 180 tablet 1 MG tablet tablets (5 mg total) by mouth daily. Take one daily. 02/21/2019 06/22/2019 amLODIPine (NORVASC) 2.5 TAKE 1 90 tablet 0 MG tablet TABLET(2.5 MG) BY MOUTH DAILY 03/13/2019 07/28/2019 BREO ELLIPTA 200-25 INHALE 1 PUFF 60 each 0 mcg/dose INHALER BY MOUTH DAILY 04/30/2019 06/21/2019 BREO ELLIPTA 200-25 INHALE 1 PUFF 60 each 1 mcg/dose BY MOUTH INHALERIndications: DAILY Chronic obstructive pulmonary disease, unspecified COPD type ([facility]) 06/06/2019 07/28/2019 cephalexin (KEFLEX) 500 0 MG capsule 04/19/2019 07/14/2019 citalopram (CELEXA) 20 mg TAKE 1 TABLET 90 tablet 0 tablet BY MOUTH DAILY 06/17/2019 10/27/2019 cyclobenzaprine Take 1 tablet 90 tablet 0 (FLEXERIL) 10 MG tablet (10 mg total) by mouth 3 (three) times a day as needed for muscle spasms. 04/25/2019 07/17/2019 gabapentin (NEURONTIN) TAKE 2 540 capsule 0 300 MG capsule CAPSULES BY MOUTH THREE TIMES DAILY 06/13/2019 06/28/2019 HYDROcodone-acetaminophen Take 1 tablet 60 tablet 0 (NORCO) 5-325 mg per by mouth tablet every 6 (six) hours as needed for pain. Max Daily Dose: 4 tablets 06/17/2019 09/23/2019 insulin glargine (LANTUS ADMINISTER 20 10 mL 5 U-100 INSULIN) 100 UNITS UNDER unit/mL injection THE SKIN EVERY NIGHT. E11.9 01/18/2019 06/22/2019 meloxicam (MOBIC) 7.5 MG TAKE 1 90 tablet 1 tablet TABLET(7.5 MG) BY MOUTH DAILY 10/20/2018 07/17/2019 metoprolol tartrate TAKE 1 180 tablet 1 (LOPRESSOR) 100 MG tablet TABLET(100 MG) BY MOUTH TWICE DAILY 06/07/2019 07/28/2019 ondansetron (ZOFRAN-ODT) 0 4 MG disintegrating tablet 09/12/2018 06/22/2019 spironolactone Take 1 tablet 180 tablet 1 (ALDACTONE) 100 MG (100 mg tabletIndications: Hair total) by loss, Acne vulgaris mouth 2 (two) times a day. (Please take 1 daily for the first week) 02/15/2019 06/22/2019 traMADol (ULTRAM) 50 mg Take 1 tablet 25 tablet 0 tabletIndications: (50 mg total) Bilateral hand pain by mouth every 8 (eight) hours as needed for pain. Max Daily Dose: 150 mg documented as of this encounter Progress Notes * Ebony Sharp MD - 06/21/2019 9:55 PM CDT Already discussed with patient. Still no obstruction noted. She needs to see u rology with the degree of pain that she has been having (she already has had yassine t and has surgery scheduled). documented in this encounter Plan of Treatment Care Team Description Date [place] [address] [place] [address] [phone] 02/29/2020 Office Visit Urology documented as of this encounter Procedures Comments Procedure Name Priority Date/Time Associated Diag nosis CT ABDOMEN PELVIS WO Routine 06/16/2019 Left flan k pain CONTRAST 11:58 AM CDT documented in this encounter Results * CT Abdomen Pelvis wo contrast (06/16/2019 11:58 AM CDT) Specimen Impressions Performed At Impression: LEVI No CT cause for patient's pain identifi ed on limited unenhanced CT of the abdomen and pelvis Stable nonobstructing left renal stone Hepatomegaly and diffuse fatty infiltra tion of the liver Stable ureteral diverticulum READING SITE: [facility] Narrative Performed At Patient: ISIAH BENÍTEZ Sex#: F #: [id number] Jose #: [id number] Location: [facility] CT 23 Procedure Requested: [id number] CT ABDOM EN PELVIS WO CONTRAST Reason for Exam: Left flank pain Exam Ordered: 06/16/2019 1 143 Exam Date/Time: 06/16/2019 11 58 Begin exam date/time: 06/16/2019 11 47 Examination: CT ABDOMEN PELVIS WO CON TRAST Comparison: 05/26/2019 History: Left flank pain Technique: Unenhanced axial 5 mm images were obtained through the abdomen and pelvis. Coronal and sagitta l multiplanar reformations were obtained. Findings: The visualized lung bases are clear Abdomen: Lack of intravenous contrast somewhat l imits evaluation of solid intra-abdominal organs and vascular str uctures. Status post cholecystectomy The liver is enlarged measuring approxi mately 20 cm with diffuse fatty infiltration. No suspicious focal hepat ic abnormality Large nonobstructing calculus in the in ferior left kidney measuring approximately 1.5 cm. The bilateral kid neys are otherwise unremarkable for noncontrast study. No ureteral calc natalie or hydronephrosis The unenhanced spleen, pancreas, and th e bilateral adrenal glands are unremarkable. The visualized segments of bowel are un remarkable without evidence of obstruction or acute inflammatory duarte es. The appendix is normal. No retroperitoneal mass or lymphadenopa thy. No ascites or fluid collections. The abdominal aorta is normal caliber. Pelvis: Urinary bladder is low volume. Status post hysterectomy Stable ureteral diverticulum with mild dependent stones No pelvic mass or lymphadenopathy. No suspicious osseous lesions. Procedure Note Interface, Rad Results In - 06/16/2019 1:50 PM CDT Patient: ISIAH BENÍTEZ Sex#: F #: [id number] Jose#: [id number] Location: [facility] CT Procedure Requested: [id number] CT ABDOMEN PELVIS WO CONTRAST Reason for Exam: Left flank pain Exam Ordered: 06/16/2019 1143 Exam Date/Time: 06/16/2019 1158 Begin exam date/time: 06/16/2019 1147 Examination: CT ABDOMEN PELVIS WO CONTRAST Comparison: 05/26/2019 History: Left flank pain Technique: Unenhanced axial 5 mm images were obtained through the abdomen and pelvis. Coronal and sagittal multiplanar reformations were obtained. Findings: The visualized lung bases are clear Abdomen: Lack of intravenous contrast somewhat limits evaluation of solid intra-abdominal organs and vascular structures. Status post cholecystectomy The liver is enlarged measuring approximately 20 cm with diffuse fatty infiltration. No suspicious focal hepatic abnormality Large nonobstructing calculus in the inferior left kidney measuring approximately 1.5 cm. The bilateral kidneys are otherwise unremarkable for noncontrast study. No ureteral calculi or hydronephrosis The unenhanced spleen, pancreas, and the bilateral adrenal glands are unremarkable. The visualized segments of bowel are unremarkable without evidence of obstruction or acute inflammatory changes. The appendix is normal. No retroperitoneal mass or lymphadenopathy. No ascites or fluid collections. The abdominal aorta is normal caliber. Pelvis: Urinary bladder is low volume. Status post hysterectomy Stable ureteral diverticulum with mild dependent stones No pelvic mass or lymphadenopathy. No suspicious osseous lesions. IMPRESSION Impression: No CT cause for patient's pain identified on limited unenhanced CT of the abdomen and pelvis Stable nonobstructing left renal stone Hepatomegaly and diffuse fatty infiltration of the liver Stable ureteral diverticulum READING SITE: [facility] Address City/State/Zipcode Ph one Number [facility] documented in this encounter Visit Diagnoses Diagnosis Left flank pain Abdominal pain, unspecified site documented in this encounter
--- OUTSIDE RECORDS SUMMARY | 2019-11-28 22:20 | XMS REPORT | Encounter Summary ---
Author Author [facility] Organization [facility] Address Unknown Phone Unavailable Care Team Providers Care Machine Adjuster Helper Name Role Phone Ebony Sharp MD PCP Reason for Visit * Auth/Cert Referred By Contact Referred To Contact Status Reason Specialty Diagnoses / Procedures Diagnoses R10.9 P rocedures CYSTO/URETERO W/LITHOTRIPSY &INDWELL STENT INSRT CYSTOSCOPY, LEFT RETROGRADE PYELOGRAM, LEFT URETEROSCOPY, LASER LITHOTRIPSY, LEFT URETERAL STENT PLACEMENT Encounter Details Care Team Description [place] [address] [place] [address] [phone] Renal calculus (Primary Dx) 06/28/2019 [facility] [address] [place] [address] Social History Date Tobacco Use Types Packs/Day [...] Comments Vital Sign 152/95 06/28/2019 11:30 AM TOOLMAKER GRADE THREE Blood Pressure 78 06/28/2019 11:30 AM TOOLMAKER GRADE THREE Pulse 36.6 C (97.8 F) 06/28/2019 10:15 AM TOOLMAKER GRADE THREE Temperature 13 06/28/2019 11:30 AM TOOLMAKER GRADE THREE Respiratory Rate 93% 06/28/2019 11:30 AM TOOLMAKER GRADE THREE Oxygen Saturation - - Inhaled Oxygen Concentration 101.2 kg (223 lb) 06/22/2019 10:26 AM CDT Weight 152.4 cm (5') 06/22/2019 10:26 AM CDT Height 43.55 06/22/2019 10:26 AM CDT Body Mass Index documented in this encounter Discharge Instructions * Pre-Procedure Instructions* Rosy Hart RN - 06/22/2019 10:41 AM CDT Current Outpatient Medications Medication Sig Note: vit A/vit C/biotin/zinc/copper ([id number],VIT A,C-BIOTIN, ORAL) Take by mouth daily. Note:stop [...] A/vit Take by mouth 0 C/biotin/zinc/copper daily. ([id number],VIT A,C-BIOTIN, ORAL) 08/26/2017 08/28/2019 albuterol (VENTOLIN HFA) [...] Darin Huber MD - 06/28/2019 10:07 AM TOOLMAKER GRADE THREE Brief Operative Note Caren Ernestina Board 06/28/2019 Event Time In Time Out Procedure / Incision Start 915 Pre-op Diagnosis: Right nephrolithiasis Post-op Diagnosis: Right nephrolithiasis Procedure: CYSTOSCOPY, LEFT RETROGRADE PYELOGRAM, LEFT URETEROSCOPY, LASER LITHOTRIPSY, LEF T URETERAL STENT PLACEMENT, Left - Urethra Surgeon(s) and Role: * Darin Huber MD - Primary Anesthesia Type: General Staff: Home Health Registered Nurse: Renaldo Menchaca RN Scrub Person: Estefany Correa Anesthesiologist: Medardo Pierce MD AIRCRAFT WORKER: Rosa M White CRNA Findings: Large left lower pole stone Estimated Blood Loss: 10 mL Specimens: None Implants: Implant Name Type Inv. Item Serial No. Switchboard Wire Worker Helper Lot No. LRB No. Used Action IMPLANT STENT URETERAL CONTOUR 7FR X 24CM W/O GUIDWIRE 180-232/[id number] - LOG [id number] Non-Tissue Implant IMPLANT STENT URETERAL CONTOUR 7FR X 24CM W/O GUIDWIR E 180-232/[id number] Concierge [id number] Left 1 Implanted Complications: None Description of [...] began the procedure by inserting the 21 [place] rigid cystoscope transurethral without difficulty once in the bladder identified the left ureteral orifice. T his was then cannulated with a 5 [place] open-ended stent retrograde pyelogram de monstrated a [...] access sheath. I then selected a 7 [place] by 24 cm stent was passed to the renal pelvis under fluoroscopic guidance I did call the urinary bladder under di rect visual guidance. An 18 [place] Ballard catheter was placed in patient's bladd er was irrigated out. This is placed to gravity drainage. Darin Huber MD Date: 06/28/2019 Time: 10:08 AM MAKER GRADE THREE documented in this encounter Plan of Treatment Care Team Description Date [place] [address] [place] [address] [phone] 02/29/2020 Office Visit Urology documented as of this encounter Procedures Comments Procedure Name Priority Date/Time Associated Diag nosis GLUCOSE POC Routine 06/28/2019 10:20 AM TOOLMAKER GRADE THREE CYSTOSCOPY, RETROGRADE 06/28/2019 R10.9 PYELOGRAM, URETEROSCOPY, 8:59 AM TOOLMAKER GRADE THREE LASER LITHOTRIPSY, WITH URETERAL STENT PLACEMENT Special Needs HOLMIUM LASER ORDERED PER RADHA BUSTOS [facility]- ARMJEHOVAH 'S WITNESS- REFUSED BLOOD PRODUCTS SASHA WITH CPAP USE OCCASIONAL LY O2 PER NC USE PRN GLUCOSE POC Routine 06/28/2019 7:58 AM TOOLMAKER GRADE THREE documented in this encounter Results * GLUCOSE POC (06/28/2019 10:20 AM TOOLMAKER GRADE THREE) Only the most recent of 2 results within the time period is included. Glucose POC 263 (H) 70 - 100 mg/dL [facility] Specimen Performing Organization Address City/State/Zipcode Ph one Number [facility] [address] [facility] [place], [place] [id number] [facility] [address] [facility] [place] [address], [facility] documented in this encounter Visit Diagnoses Diagnosis Renal calculus Calculus of kidney documented in this encounter Administered Medications Action Date Dose Rate Site Medication Order MAR Action albuterol (ACCUNEB) 2.5 mg/3 mL (0.083 %) nebulizer solution 2.5 mg 2.5 mg, Nebulization, Every 4 hours PRN , wheezing, Starting Wed06/28/19 at 1016, PACU (only) 06/28/2019 8:29 AM TOOLMAKER GRADE THREE 20 mg famotidine (PEPCID) injection 20 mg Given 20 mg, Intravenous, Once, Wed06/28/19 a t 0830, For 1 dose, Pre-op 06/28/2019 10:59 AM TOOLMAKER GRADE THREE 25 mcg fentaNYL (SUBLIMAZE) injection 25-50 mcg Given 25-50 mcg, Intravenous, Every 5 min PRN , pain, Starting Wed06/28/19 at 1016, PAC U (only), Give only if RR is greater than 8 breaths/min. Maximum of 200 mcg in 2 hours., 25 mcg Given 06/28/2019 10:46 AM TOOLMAKER GRADE THREE 50 mcg Given 06/28/2019 10:37 AM TOOLMAKER GRADE THREE 06/28/2019 11:26 AM TOOLMAKER GRADE THREE 5 mg hydrALAZINE (APRESOLINE) injection 5 mg Given 5 mg, Intravenous, Once, Wed06/28/19 at 1145, For 1 dose, PACU (only) 06/28/2019 11:10 AM TOOLMAKER GRADE THREE 2 tablets HYDROcodone-acetaminophen (NORCO) 5-325 Given mg per tablet 1-2 tablet 1-2 tablet, Oral, Every 4 hours PRN, moderate pain (pain score 4-6), Startin g Wed06/28/19 at 1013, PACU (only), Do no t exceed 4 GM/DAY of acetaminophen. If 6 5 or older do not exceed 3 GM/DAY. If chronic alcoholic do not exceed 2 GM/DAY., 06/28/2019 11:28 AM TOOLMAKER GRADE THREE 5 mg labetalol (NORMODYNE,TRANDATE) injection Given 5 mg 5 mg, Intravenous, Once, Wed06/28/19 at 1145, For 1 dose, PACU (only) 06/28/2019 8:29 AM TOOLMAKER GRADE THREE 50 mL/hr 50 mL/hr lactated ringers infusion New Bag 50 mL/hr, Intravenous, Continuous, Starting Wed06/28/19 at 0830, For 48 hours, Pre-op naloxone (NARCAN) injection 0.08 mg 0.08 mg, [...] PRN, nausea/vomiting (1st line), Starting We d 06/28/19 at 1016, PACU (only), Administe r if patient does not have IV access and refuses IM injection., documented in this encounter
--- OUTSIDE RECORDS SUMMARY | 2019-11-28 22:20 | XMS REPORT | Encounter Summary ---
Author Author [facility] Organization [facility] Address Unknown Phone Unavailable Care Team Providers Care Rail Switchman Name Role Phone Ebony Sharp MD PCP Reason for Visit * Reason Comments Medication Refill Encounter Details Care Team Description Date Type Department Ebony Sharp MD [address] [facility] [address] [place] [address] [phone] Medication Refill 06/16/2019 Refill [facility] (walk-in clinic) [address] [facility] [address] [place], [place] [id number] Social History Date Tobacco Use Types Packs/Day [...] Description Date [place] [address] [place] [address] [phone] 02/29/2020 Office Visit Urology documented as of this encounter Visit Diagnoses Not on filedocumented in this encounter
--- OUTSIDE RECORDS SUMMARY | 2019-11-28 22:20 | XMS REPORT | Encounter Summary ---
Author Author [facility] Organization [facility] Address Unknown Phone Unavailable Care Team Providers Care English Composition Instructor Name Role Phone Ebony Sharp MD PCP Reason for Visit * Reason Comments Other Encounter Details Care Team Description Date Type Department Ebony Sharp MD [address] [facility] [address] [place] [address] [phone] Other 06/24/2019 Refill [facility] (walk-in clinic) [address] [place], [place] [id number] Social History Date Tobacco Use Types Packs/Day [...] Description Date [place] [address] [place] [address] [phone] 02/29/2020 Office Visit Urology documented as of this encounter Visit Diagnoses Not on filedocumented in this encounter
--- OUTSIDE RECORDS SUMMARY | 2019-11-28 22:20 | XMS REPORT | Encounter Summary ---
Author Author [facility] Organization [facility] Address Unknown Phone Unavailable Care Team Providers Care Repatcher Name Role Phone Ebony Sharp MD PCP Encounter Details Care Team Description Date Type Department Santo Hernandez RN 05/11/2019 [facility] (walk-in clinic) [address] [facility] [address] [place], [place] [id number] Social History Date Tobacco Use Types Packs/Day [...] Description Date [place] [address] [place] [address] [phone] 02/29/2020 Office Visit Urology documented as of this encounter Visit Diagnoses Not on filedocumented in this encounter
--- OUTSIDE RECORDS SUMMARY | 2019-11-28 22:20 | XMS REPORT | Encounter Summary ---
Author Author [facility] Organization [facility] Address Unknown Phone Unavailable Care Team Providers Care Neurosurgical Nurse Name Role Phone Ebony Sharp MD PCP Encounter Details Care Team Description Date [place] [address] [place] [address] [phone] 06/21/2019 Orders Only [facility] [address], [place] [address] Social History Date Tobacco Use Types Packs/Day [...] Description Date [place] [address] [place] [address] [phone] 02/29/2020 Office Visit Urology documented as of this encounter Procedures Comments Procedure Name Priority Date/Time Associated Diag nosis CULTURE, URINE Routine 06/21/2019 4:26 PM CDT documented in this encounter Results * Culture, Urine (06/21/2019 4:26 PM CDT) Urine Culture, SEE NOTE (A) [facility] Routine Comment: CULTURE, URINE, ROUTINE MICRO NUMBER: [id number] TEST STATUS: FINAL SPECIMEN SOURCE: URINE SPECIMEN QUALITY: ADEQUATE RESULT: 50,000-100,000 CFU/mL of Lactobacillus species May represent colonizers from external and internal genitalia. No further testing (including susceptibility) will be performed. Specimen Performing Organization Address City/State/[facility] Ph one Number [facility] [address] [place] [address] documented in this encounter Visit Diagnoses Not on filedocumented in this encounter
--- OUTSIDE RECORDS SUMMARY | 2019-11-28 22:20 | XMS REPORT | Encounter Summary ---
Author Author [facility] Organization [facility] Address Unknown Phone Unavailable Care Team Providers Care Teacher Of The Emotionally Disturbed Name Role Phone Ebony Sharp MD PCP Reason for Visit * Reason Comments Other Encounter Details Care Team Description Date Type Department Ebony Sharp MD [address] [facility] [address] [place] [address] [phone] Other 04/19/2019 Refill [facility] y [facility] (walk-in clinic) [address] [facility] [address] [place], [place] [phone] Social History Date Tobacco Use Types Packs/Day [...] Description Date [place] [address] [place] [address] [phone] 02/29/2020 Office Visit Urology documented as of this encounter Visit Diagnoses Not on filedocumented in this encounter
--- OUTSIDE RECORDS SUMMARY | 2019-11-28 22:20 | XMS REPORT | Encounter Summary ---
Author Author [facility] Organization [facility] Address Unknown Phone Unavailable Care Team Providers Care Biology Department Chair Name Role Phone Ebony Sharp MD PCP Encounter Details Care Team Description Date Type Department Kidney stone 06/21/2019 Imaging [facility] [address] [place] [address] Social History Date Tobacco Use Types Packs/Day [...] Description Date [place] [address] [place] [address] [phone] 02/29/2020 Office Visit Urology documented as of this encounter Procedures Comments Procedure Name Priority Date/Time Associated Diag nosis XR ABDOMEN SINGLE VIEW AP Routine 06/21/2019 Kidn ey stone 12:48 PM CDT documented in this encounter Results * XR Abdomen single view AP (06/21/2019 12:48 PM CDT) Specimen Impressions Performed At 1. 1.7 cm left lower pole intrarenal calculus. YAIMA SON 2. Degenerative spine changes. Narrative Performed At Patient: ISIAH BENÍTEZ Sex#: F #: [id number] Jose #: [id number] Location: [facility] XR Procedure Requested: [id number] XR ABDOM EN SINGLE VIEW AP Reason for Exam: Kidney stone Exam Ordered: 06/21/2019 1 240 Exam Date/Time: 06/21/2019 12 48 Begin exam date/time: 06/21/2019 12 41 Reading Site: [facility] XR ABDOMEN SINGLE VIEW AP Date: 06/21/2019 12:48 PM History: Kidney stone Findings: Compared with 04/19/2018. Geoff elation is made with CT from 06/16/2019. Irregular shaped 1.7 cm rosalind cific density overlies the lower pole renal shadow on the left. No addit ional suspicious calcifications. Multilevel degenerative spine changes. Nonobstructive bowel gas pattern. Procedure Note Interface, Rad Results In - 06/21/2019 12:57 PM CDT Patient: ISIAH BENÍTEZ Sex#: F #: [id number] Jose#: [id number] Location: [facility] XR Procedure Requested: [id number] XR ABDOMEN SINGLE VIEW AP Reason for Exam: Kidney stone Exam Ordered: 06/21/2019 1240 Exam Date/Time: 06/21/2019 1248 Begin exam date/time: 06/21/2019 1241 Reading Site: [facility] XR ABDOMEN SINGLE VIEW AP Date: 06/21/2019 12:48 PM History: Kidney stone Findings: Compared with 04/19/2018. Correlation is made with CT from 06/16/2019. Irregular shaped 1.7 cm calc ific density overlies the lower pole renal shadow on the left. No additional suspicious calcifications. Multilevel degenerative spine changes. Nonobstructive bowel gas pattern. IMPRESSION 1. 1.7 cm left lower pole intrarenal rosalind culus. 2. Degenerative spine changes. Performing Organization Address City/State/Zipcode Ph one Number [facility] documented in this encounter Visit Diagnoses Diagnosis Kidney stone Calculus of kidney documented in this encounter
--- OUTSIDE RECORDS SUMMARY | 2019-11-28 22:20 | XMS REPORT | Encounter Summary ---
Author Author [facility] Organization [facility] Address Unknown Phone Unavailable Care Team Providers Care Stocklayer Name Role Phone Ebony Sharp MD PCP Reason for Visit * Reason Comments surgical clearance Encounter Details Care Team Description Date Type Department Santo Hernandez RN surgical clearance 06/21/2019 Telephone [facility] (walk-in clinic) [address] [facility] [address] [place], [place] [phone] Social History Date Tobacco Use Types Packs/Day [...] encounter Miscellaneous Notes * Telephone Encounter - Snato Hernandez RN - 06/22/2019 3:57 PM CDT Urology called and informed. * Telephone Encounter - Ebony Sharp MD - 06/21/2019 8:49 PM CDT Yes - she is likely an intermediate risk simply because of her grossly uncontrol led diabetes. Her BP has recently been poorly controlled, but likely was due to the great deal of pain that she had been having from her kidney stone. SHe had a normal EKG 6 months ago. SHe had a normal stress test 3 years ago. SHe does not have chest pain with activity. * Telephone Encounter - Santo Hernandez RN - 06/21/2019 2:15 PM CDT Pt saw urologist today, will be getting surgery for her kidney stones. Matteo avelar called to get clearance for patient to have surgery done. documented in this encounter Plan of Treatment Care Team Description Date [place] [address] [place] [address] [phone] 02/29/2020 Office Visit Urology documented as of this encounter Visit Diagnoses Not on filedocumented in this encounter
--- OUTSIDE RECORDS SUMMARY | 2019-11-28 22:20 | XMS REPORT | Encounter Summary ---
Author Author [facility] Organization [facility] Address Unknown Phone Unavailable Care Team Providers Care Blending Operator Name Role Phone Ebony Sharp MD PCP Reason for Visit * Reason Comments Other Encounter Details Care Team Description Date Type Department Ebony Sharp MD [address] [facility] [address] [place] [address] [phone] Other 04/23/2019 Refill [facility] (walk-in clinic) [address] [facility] [address] [place], [place] [address] Social History Date Tobacco Use Types Packs/Day [...] Description Date [place] [address] [place] [address] [phone] 02/29/2020 Office Visit Urology documented as of this encounter Visit Diagnoses Not on filedocumented in this encounter
--- OUTSIDE RECORDS SUMMARY | 2019-11-28 22:20 | XMS REPORT | Encounter Summary ---
Author Author [facility] Organization [facility] Address Unknown Phone Unavailable Care Team Providers Care Medical Receptionist Medical Assistant Name Role Phone Ebony Sharp MD PCP Reason for Visit * Reason Comments Other Encounter Details Care Team Description Date Type Department Ebony Sharp MD [address] [facility] [address] [place] [address] [phone] Other 04/28/2019 Refill [facility] y [facility] (walk-in clinic) [address] [facility] [address] [place], [place] [phone] Social History Date Tobacco Use Types Packs/Day [...] Description Date [place] [address] [place] [address] [phone] 02/29/2020 Office Visit Urology documented as of this encounter Visit Diagnoses Diagnosis Chronic obstructive pulmonary disease, unspecified COPD type (HCC) documented in this encounter
--- OUTSIDE RECORDS SUMMARY | 2019-11-28 22:20 | XMS REPORT | Encounter Summary ---
Author Author [facility] Organization [facility] Address Unknown Phone Unavailable Care Team Providers Care Maintainer Central Office Name Role Phone Ebony Sharp MD PCP Reason for Visit * Reason Comments Flank Pain Patient reports bilateral f lank pain and lower abd pain. patient reports nausea. patient reports pain with urina tion. Encounter Details Care Team Description Date Type Department Maggie Yap DO [address] [place] [address] [phone] Acute cystitis without hematuria (Primar y Dx) 05/26/2019 Emergency [facility] 05/27/2019 [address] [place] [address] Social History Date Tobacco Use Types Packs/Day [...] Signs Reading Time Taken Comments Vital Sign 160/91 05/27/2019 12:18 AM CDT Blood Pressure 88 05/26/2019 9:46 PM CDT Pulse 36.7 C (98.1 F) 05/26/2019 9:46 PM CDT Temperature 22 05/26/2019 9:46 PM CDT Respiratory Rate 95% 05/27/2019 12:18 AM CDT Oxygen Saturation - - Inhaled Oxygen Concentration 101.2 kg (223 lb) 05/26/2019 9:46 PM CDT Weight 152.4 cm (5') 05/26/2019 9:46 PM CDT Height 43.55 05/26/2019 9:46 PM CDT Body Mass Index documented in this encounter Discharge Instructions * Instructions* Maggie Yap, DO - 05/27/2019 Over the next few days you will need to sip on plenty of fluids throughout the d ay, avoid alcohol and caffeine and sodas. Eat a very bland diet, whole wheat bread, crackers, plenty of fresh fruits and v egetables. Avoid very spicy or greasy foods. Avoid meats as well as other anim al products such as eggs and dairy. Follow this diet to help your general health and to see if it helps your symptom s over the next few days and general well-being. An excellent source of online information is www.nutritionfacts.org. * Attachments The following attachments cannot be sent through Care Everywhere.* Urinary Tract Infections (UTIs), Understanding (Northern Irish) * Pancreatitis, Understanding (Northern Irish) documented in this encounter Medications at Time of Discharge Start Date End Date Medication Sig Dispensed Refills 08/26/2017 insulin syringe (BD Inject under 100 each 0 ULTRA-FINE) 0.3 mL 31 the skin gauge x 5/16 daily. use as directed 06/21/2018 insulin syringe 0.3 mL 31 USE 100 each 1 gauge x 5/16 DIRECTED 02/14/2016 01/14/2028 ipratropium-albuterol Inhale 3 mL 4 360 mL 11 (DUO-NEB) 0.5-3 mg/3 mL (four) times nebulizer a day. OXYGEN THERAPY 2 L/min as 0 needed. 05/27/2019 06/01/2019 cephalexin (KEFLEX) 500 Take 1 10 capsule 0 MG capsule capsule (500 mg total) by mouth 2 (two) times a day. 05/27/2019 05/30/2019 HYDROcodone-acetaminophen Take 1 tablet 12 tablet 0 (NORCO) 5-325 mg per by mouth tablet every 6 (six) hours as needed for pain. Max Daily Dose: 4 tablets 08/26/2017 08/28/2019 albuterol (VENTOLIN HFA) INHALE 1 [...] MG tablet TABLET(2.5 MG) BY MOUTH DAILY 01/13/2019 06/16/2019 atorvastatin (LIPITOR) 40 Take 1 tablet 30 tablet 11 MG tablet (40 mg total) by mouth daily. 03/13/2019 07/28/2019 BREO ELLIPTA 200-25 INHALE 1 PUFF 60 each 0 mcg/dose INHALER BY MOUTH DAILY 04/30/2019 06/21/2019 BREO ELLIPTA 200-25 INHALE 1 PUFF 60 each 1 mcg/dose BY MOUTH INHALERIndications: DAILY Chronic obstructive pulmonary disease, unspecified COPD type (HCC) 04/19/2019 07/14/2019 citalopram (CELEXA) 20 mg TAKE 1 TABLET 90 tablet 0 tablet BY MOUTH DAILY 05/23/2019 06/16/2019 cyclobenzaprine 5 (FLEXERIL) 10 MG tablet 04/25/2019 07/17/2019 gabapentin (NEURONTIN) TAKE 2 540 capsule 0 300 MG capsule CAPSULES BY MOUTH THREE TIMES DAILY 11/28/2018 06/16/2019 insulin glargine (LANTUS ADMINISTER 15 10 mL 5 U-100 INSULIN) 100 UNITS UNDER unit/mL injection THE SKIN EVERY NIGHT. E11.9 01/18/2019 06/22/2019 meloxicam (MOBIC) 7.5 MG TAKE 1 90 tablet 1 tablet TABLET(7.5 MG) BY MOUTH DAILY 10/20/2018 07/17/2019 metoprolol tartrate TAKE 1 180 tablet 1 (LOPRESSOR) 100 MG tablet TABLET(100 MG) BY MOUTH TWICE DAILY 09/12/2018 06/22/2019 spironolactone Take 1 tablet 180 [...] 150 mg documented as of this encounter ED Notes * FraciscoSissyMaggieDO august - 05/26/2019 10:00 PM CDT [facility] Chief Complaint Patient presents with Flank Pain Patient reports bilateral flank pain and lower abd pain. patient reports nause a. patient reports pain with urination. HPI patient is a 68-year-old female coming from home here with other companions complaining of gradual onset earlier today of bilateral shoulder pain that migra lexis to the low back and now is wrapping around both sides of the suprapubic area . She feels bloated, mildly nauseous but no vomiting, mild diarrhea today but n othing black or bloody, and pain with urination, no discharge. Feels like a kid kvng stone she is out of the past. She is been taking ibuprofen several times a day without any relief. Past Medical History: Diagnosis Date Acute bleeding 08/08/2016 Allergic rhinitis Anxiety Bronchitis, chronic ([facility]) Cataract 2011, 2012 bilat cateract surgery Chronic pain disorder back, ribs, and ankle. COPD (chronic obstructive pulmonary disease) ([facility]) Depression Draining postoperative wound 08/08/2016 Endometriosis Essential hypertension Fractures [address] in Left ankle MATA (generalized anxiety disorder) 09/24/2015 Hernia of abdominal cavity Mixed hyperlipidemia 09/24/2015 Morbid obesity due to excess calories ([facility]) 07/10/2016 On home oxygen therapy 2L - usually needs if has an exerbation of COPD, or resp illness SASHA on CPAP Osteoarthritis Sleep apnea uses CPAP Type 2 diabetes mellitus with hyperglycemia, with long-term current use of i nsulin (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 Past Surgical History: Procedure Laterality Date ANKLE FRACTURE SURGERY Left 1998 fx in 3 places and w/screws in place APPENDECTOMY CATARACT EXTRACTION W/ INTRAOCULAR LENS IMPLANT Bilateral SECTION, CLASSIC CHOLECYSTECTOMY COLONOSCOPY HAND SURGERY Left 03/09/2019 CTR HYSTERECTOMY OOPHORECTOMY REMOVAL, HARDWARE, FOOT OR ANKLE [...] Last attempt to quit: 04/2011 Years since quittin.0 Smokeless tobacco: Never Used Tobacco comment: quit 7 years ago Substance Use Topics Alcohol use: Yes Comment: 0-1 a month Drug use: No Allergy information reviewed Review of Systems Review of Systems Constitutional: Negative for chills, diaphoresis and fever. Feels safe at home, denies changes in mood or behavior. HENT: Negative for congestion, sore throat, trouble swallowing and voice change. Denies visual changes. Respiratory: Negative for cough, wheezing, and shortness of breath. Cardiovascular: Negative for chest discomfort. Gastrointestinal: Negative for changes in appetite, constipation, black or blood y stools. Denies vomiting. Musculoskeletal: Negative for neck and back pain. Negative for recent falls or other trauma. Skin: Negative for color change, rash, or lesions. Neurological: Negative for vertigo, syncope, focal weakness numbness or tingling , headache, confusion. Positive for mild dizziness All other systems reviewed and are negative. Physical Exam BP (!) 178/95 (BP Location: Left arm) | Pulse 88 | Temp 98.1 F (36.7 C) (O ral) | Resp 22 | Ht 1.524 m (5') | Wt 101.2 kg (223 lb) | SpO2 93% | BMI 43 .55 kg/m Weight Method: Stated Physical Exam Nursing documentation and vital signs reviewed General: No acute distress, alert, calm and cooperative, not hostile, nontoxic-a ppearing HEENT: head and face are atraumatic and normocephalic, no scleral icterus, PERRL bilaterally, pharynx is normal, no signs of dehydration, voice is normal Neck: normal appearance, no neck stiffness or meningismus, no lymphadenopathy or JVD. Respiratory: no respiratory distress, normal lung sounds without wheezing or target aircraft controller ckles Cardiac: heart sound normal, no murmurs or rubs or gallups, normal rate and rhyt hm, radial pulses are 2+ bilaterally Abdomen: soft with mild distention, decreased bowel sounds, mild tenderness glob ally but more so in the suprapubic area, no bladder distention, no guarding or r ebound. Skin: normal color, no rash or lesions, warm, dry Extremities: non tender, no sign of injury, full ROM without pain, no pedal jacky a or calf tenderness Neuro/ Psych: oriented X4, at baseline,no focal weakness, mood and affect are no rmal. Labs Reviewed URINALYSIS REFLEX - Abnormal; Notable for the following components: Result Value Glucose Urine >=1000 (*) Hemoglobin Urine Moderate (*) All other components within normal limits COMPREHENSIVE METABOLIC PANEL - Abnormal; Notable for the following components: Glucose 321 (*) All other components within normal limits LIPASE - Abnormal; Notable for the following components: Lipase 338 (*) All other components within normal limits CBC AND DIFF (MANUAL DIFF IF NECESSARY) - Abnormal; Notable for the following co mponents: MCV 100 (*) All other components within normal limits Narrative: This order is a replacement of the rejected order with accession number [id number]. URINALYSIS MICROSCOPIC ONLY - Abnormal; Notable for the following components: Microscopic RBC Urine 6 - 10 (*) Microscopic WBC Urine 21-40 (*) Hyaline Cast Large (*) Mucus Large (*) All other components within normal limits CULTURE, URINE CT Abdomen Pelvis wo contrast Preliminary Result 1. Staghorn type calculus within the lower pole of the left kidney unchanged from prior examination. No hydronephrosis. No urinary tract calculi along the course of the ureters. 2. Tiny fat containing anterior abdominal wall hernia decreased in size and compared to prior exam. THIS DOCUMENT HAS BEEN ELECTRONICALLY SIGNED BY DMITRY RIOS MD ED Course Procedures MDM patient was evaluated, stable on monitor other than some mild hypertension, tolerated morphine, work-up shows questionable cystitis, most likely dirty urine but will culture and given her symptoms treat with Keflex, Lortab for pain, edu cated on minimal signs of pancreatitis which may be playing into her symptoms bu t I think she can still discharge home with a clear liquid to bland diet and fol low-up if not starting to feel better. She was understanding and agreeable to t he plan of care. ED Clinical Impression 1. Acute cystitis without hematuria Patient ED Dispo None Maggie Yap DO 05/27/19 0003 documented in this encounter Plan of Treatment Care Team Description Date [place] [address] [place] [address] [phone] 02/29/2020 Office Visit Urology documented as of this encounter Procedures Comments Procedure Name Priority Date/Time Associated Diag nosis URINALYSIS MICROSCOPIC STAT 05/26/2019 ONLY 11:05 PM CDT URINALYSIS REFLEX STAT 05/26/2019 11:05 PM CDT CULTURE, URINE STAT 05/26/2019 11:05 PM CDT CBC AND DIFF (MANUAL DIFF STAT 05/26/2019 IF NECESSARY) 10:52 PM CDT LIPASE STAT 05/26/2019 10:28 PM CDT COMPREHENSIVE METABOLIC STAT 05/26/2019 PANEL 10:[address] ABDOMEN PELVIS WO STAT 05/26/2019 CONTRAST 10:12 PM CDT documented in this encounter Results * Culture, Urine (05/26/2019 11:05 PM CDT) Culture Result Three or more bacterial [facility] species isolated from urine Hospital Lab indicates colonization or fecal contamination. Submission of a repeat specimen is suggested. Isolate 1 Mixed ciera [facility] Specimen Urine Performing Organization Address City/State/Zipcode Ph one Number [address] [address] LABORATORIES [facility] [address] [place] [address] * Urinalysis Microscopic Only (05/26/2019 11:05 PM CDT) Microscopic RBC 6 - 10 (A) 0 - 5 /hpf [facility] Microscopic WBC 21-40 (A) 0 - 5 /hpf [facility] Epithelial Absent Absent [facility] Cells [facility] Hyaline Cast Large (A) Absent [facility] Bacteria Absent Absent [facility] Mucus Large (A) Absent [facility] Specimen Urine Performing Organization Address City/State/[facility] Ph one Number [facility] [address] [place] [address] [facility] [address] [place] [address] [facility] * Urinalysis Reflex (05/26/2019 11:05 PM CDT) Appearance, Yellow [facility] Urine [facility] Glucose Urine >=1000 (A) Negative mg/dL [facility] Bilirubin Urine Negative Negative [facility] Ketones Urine Negative Negative mg/dL [facility] Specific 1.024 1.001 - 1.030 [facility] [place], [facility] Hemoglobin Moderate (A) Negative [facility] Urine [facility] PH Urine 5.0 5.0 - 8.0 [facility] Protein Urine Negative Negative mg/dL [facility] Qual [facility] Urobilinogen Negative Negative EU/dL [facility] Nitrite Urine NegativeComment: Culture Negative [facility] Ordered [facility] Leukocyte Negative Negative [facility] Esterase Cedric Zazuetas [facility] Specimen Urine Performing Organization Address City/State/Zipcode Ph one Number [facility] [address] [place] [place], [place] [id number] [facility] [address] [place] [address] [facility] * CBC and Diff (manual diff if necessary) (05/26/2019 10:52 PM CDT) WBC 9.34 4.00 - 11.00 TH/uL [facility] RBC 4.11 4.00 - 5.00 MIL/uL leonel eugenia Zaz[facility] Hemoglobin 13.3 12.0 - 15.0 g/dL [facility] Hematocrit 41 36 - 45 % [facility] MCV 100 (H) 80 - 99 fL [facility]onele[facility] MCH 32 27 - 34 pg [facility]le[place]enia Zaz[facility] MCHC 32 32 - 36 % [facility] RDW 12.8 11.5 - 14.5 % [facility] [facility] Platelet Count 178 140 - 400 TH/uL [facility] MPV 10.1 9.4 - 12.3 fL [facility] Nucleated RBCs 0 0 - 0 /100 [facility] Z[facility]eta[facility] % Neutrophils 58 45 - 78 % [facility] %Lymphocytes 29 15 - 47 % [facility] %Monocytes 9 0 - 12 % [facility] %Eosinophils 4 0 - 7 % [facility] %Basophils 1 0 - 2 % [facility] % Imm Grans 0 0 - 1 % [facility] # Granulocytes 5.37 1.7 - 6.8 TH/uL [facility] # Lymphocytes 2.67 1.0 - 3.3 TH/uL frank [facility] # Monocytes 0.82 0.2 - 0.9 TH/uL [facility] # Eosinophils 0.39 0.0 - 0.4 TH/uL frakn [facility] # Basophils 0.06 0.0 - 0.1 TH/uL frank [facility] Specimen Blood Narrative Performed At This order is a replacement of the rejected order wit h accession number [facility] - [id number] ZAZUETAEugenia [facility] Performing Organization Address City/State/Zipcode Ph one Number [facility] [address] [facility] [address] [facility] [address] [place] [address] [facility] [address] [place] [address], [facility] * Lipase (05/26/2019 10:28 PM CDT) [facility] Lipase 338 (H) 23 - 300 IU/L [facility] Specimen Blood Performing Organization Address City/State/Zipcode Ph one Number [facility] [address] [place] [address] [facility] [address] [place] [address] [facility] * Comprehensive Metabolic Panel (05/26/2019 10:28 PM CDT) [facility] Sodium 139 133 - 147 MEQ/L [facility] Potassium 4.2 3.5 - 5.3 MEQ/L leoneleugenia Zazuetaeugenia [facility] Chloride 103 96 - 112 MEQ/L leoneleugenia Zazuetas [facility] Carbon Dioxide 26 20 - 32 MEQ/L [facility] Anion Gap 10 5 - 17 [facility] Calcium 8.9 8.4 - 10.5 mg/dL [facility] Glucose 321 (H) 70 - 100 mg/dL [facility] Protein Total 7.6 6.0 - 8.2 g/dL [facility] Serum [facility] Albumin 3.9 3.5 - 5.0 g/dL [facility] Alkaline 98 42 - 140 IU/L [facility] Phosphatase [facility] Alanine 32 0 - 34 IU/L [facility] Aminotransferas [facility] Aspartate 39Comment: Specimen is 15 - 46 IU/L [facility] Maldonado [facility] Aminotransferas slightly hemolyzed which may Cedric Hatfields e elevate the AST result. [facility] Bilirubin Total 0.4 0.2 - 1.3 mg/dL [facility] Blood Urea 15 7 - 26 mg/dL [facility] Nitrogen [facility] Creatinine 0.7 0.4 - 1.1 mg/dL [facility] eGFR Female AA 100 60 - 200 [facility] mL/min/1.73sq [facility] eGFR Female 84 60 - 200 [facility] Non-AA mL/min/1.73sq [facility] Specimen Blood Performing Organization Address City/State/[facility] Ph one Number [facility] [address] [facility] [place], [place] [id number] [facility]oneleugenia [facility] [place] [address] [facility] [place] [address] [facility] * CT Abdomen Pelvis wo contrast (05/26/2019 10:12 PM CDT) Specimen Impressions Performed At 1. Nonobstructive left renal calculus. No hydronephro sis. MCKESSON 2. Hepatomegaly. Hepatic steatosis. 3. Cholecystectomy. Hysterectomy. 4. 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 5. Changes consistent with fat necrosis in the anterior subcutaneous soft tissues inferior to the umbilicus. ATTESTATION STATEMENT: The staff radiol ogist has personally reviewed the images and dictated, reviewed and/or ed ited the final report. READING SITE: [facility] Narrative Performed At Patient: ISIAH BENÍTEZ Sex#: F #: [id number] #: [id number] Location: [facility] Procedure Requested: [id number] CT ABDOM EN PELVIS WO CONTRAST Reason for Exam: Bilateral, suprapubi c pain, feels like a kidney stone she has had in the past. Exam Ordered: 05/26/2019 22 00 Exam Date/Time: 05/26/2019 221 2 Begin exam date/time: 05/26/[address] ABDOMEN PELVIS WO CONTRAST INDICATION: Bilateral, suprapubic pain, feels like a kidney stone she has had in the past. EXAM: Noncontrast CT of the abdomen and pelvis. Coronal and sagittal reformatted images were performed. COMPARISON: CT abdomen and pelvis witho ut contrast dated 06/15/2018 and 11/25/2017 FINDINGS: No free air, free fluid, or f luid collection. Lower chest: The visualized lower lungs are aerated. No pleural or pericardial effusion. ABDOMEN: Liver: The liver is enlarged measuring 19 cm in craniocaudal dimension. Diffuse hepatic steatosis. No focal pamela er mass. Calcified granuloma.. Gallbladder and biliary: Cholecystectom y. Normal caliber bile ducts. Spleen: Normal spleen. Numerous calcifi ed granulomas. Pancreas: The pancreas enhances homogen eously without focal mass, ductal dilation, or peripancreatic inflammator y changes. Adrenal glands: Normal adrenal glands. Kidneys and ureters: Unchanged nonobstr uctive renal calculus in the lower pole of the left kidney which jolie sures up to 1.2 cm in maximal dimension. Stable inferior pole right r enal cyst. The kidneys and ureters are otherwise normal. No radiop aque ureteral calculus. No hydronephrosis. GI tract: The normal stomach. Small bow el and colon are of normal caliber. Normal appendix. Vascular structures: Normal caliber abd ominal aorta. Mild aortoiliac atherosclerotic calcification. The danica ac artery, SMA, bilateral renal arteries, and HANS are patent. Portal an d mesenteric venous structures are patent. Lymph nodes: No lymphadenopathy in the abdomen or pelvis. PELVIS: Genitourinary system: Normal bladder. R edemonstration of urethral diverticulum which contains 3 small dep endent stones. The diverticulum is unchanged in size and measures appro ximately 3 x 2 cm in transverse and AP dimensions. Hysterectomy. SKELETAL STRUCTURES AND SOFT TISSUES: N o acute fracture. Changes of prior ventral hernia repair. Decreased size of rounded heterogeneous fat attenuation in the anterior subcutaneou s tissues inferior to the umbilicus, likely fat necrosis. Multile rafael lumbar spondylosis. Trace anterolisthesis of L4 on L5 and L5 on S 1 moderate bilateral hip osteoarthritis. Procedure Note Interface, Rad Results In - 05/27/2019 7:20 AM CDT Patient: ISIAH BENÍTEZ Sex#: F #: [id number] Jose#: [id number] Location: [facility] -10 Procedure Requested: [id number] CT ABDOMEN PELVIS WO CONTRAST Reason for Exam: Bilateral, suprapubic pain, feels like a kidney stone she has had in the past. Exam Ordered: 05/26/20192199 Exam Date/Time: 05/26/20192211 Begin exam date/time: 05/26/20192199 CT ABDOMEN PELVIS WO CONTRAST INDICATION: Bilateral, suprapubic pain, feels like a kidney stone she has had in the past. EXAM: Noncontrast CT of the abdomen and pelvis. Coronal and sagittal reformatted images were performed. COMPARISON: CT abdomen and pelvis without contrast dated 06/15/2018 and 11/25/2017 FINDINGS: No free air, free fluid, or fluid collection. Lower chest: The visualized lower lungs are aerated. No pleural or pericardial effusion. ABDOMEN: Liver: The liver is enlarged measuring 19 cm in craniocaudal dimension. Diffuse hepatic steatosis. No focal liver mass. Calcified granuloma.. Gallbladder and biliary: Cholecystectomy. Normal caliber bile ducts. Spleen: Normal spleen. Numerous calcified granulomas. Pancreas: The pancreas enhances homogeneously without focal mass, ductal dilation, or peripancreatic inflammatory changes. Adrenal glands: Normal adrenal glands. Kidneys and ureters: Unchanged nonobstructive renal calculus in the lower pole of the left kidney which measures up to 1.2 cm in maximal dimension. Stable inferior pole right renal cyst. The kidneys and ureters are otherwise normal. No radiopaque ureteral calculus. No hydronephrosis. GI tract: The normal stomach. Small bowel and colon are of normal caliber. Normal appendix. Vascular structures: Normal caliber abdominal aorta. Mild aortoiliac atherosclerotic calcification. The celiac artery, SMA, bilateral renal arteries, and HANS are patent. Portal and mesenteric venous structures are patent. Lymph nodes: No lymphadenopathy in the abdomen or pelvis. PELVIS: Genitourinary system: Normal bladder. Redemonstration of urethral diverticulum which contains 3 small dependent stones. The diverticulum is unchanged in size and measures approximately 3 x 2 cm in transverse and AP dimensions. Hysterectomy. SKELETAL STRUCTURES AND SOFT TISSUES: No acute fracture. Changes of prior ventral hernia repair. Decreased size of rounded heterogeneous fat attenuation in the anterior subcutaneous tissues inferior to the umbilicus, likely fat necrosis. Multilevel lumbar spondylosis. Trace anterolisthesis of L4 on L5 and L5 on S1 moderate bilateral hip osteoarthritis. IMPRESSION 1. Nonobstructive left renal calculus. N o hydronephrosis. 2. Hepatomegaly. Hepatic steatosis. 3. Cholecystectomy. Hysterectomy. 4. Unchanged urethral diverticulum which contains small dependent calculi. 5. Changes consistent with fat necrosis in the anterior subcutaneous soft tissues inferior to the umbilicus. ATTESTATION STATEMENT: The staff radiologist has personally reviewed the images and dictated, reviewed and/or edited the final report. READING SITE: [facility] Organization Address City/State/[facility] Ph one Number LEVI documented in this encounter Visit Diagnoses Diagnosis Acute cystitis without hematuria documented in this encounter Administered Medications Action Date Dose Rate Site Medication Order MAR Action 05/27/2019 12:10 AM CDT 500 mg cephalexin (KEFLEX) capsule 500 mg Given 500 mg, Oral, Once, Indications: UTI, 05/27/19 at 0003, For 1 dose 05/27/2019 12:10 AM CDT 1 tablet HYDROcodone-acetaminophen (NORCO) 5-325 Given mg per tablet 1 tablet 1 tablet, Oral, Once, 05/27/19 at 0003, For 1 dose, Do not exceed 4 GM/DA Y of acetaminophen. If 65 or older do no t exceed 3 GM/DAY. If chronic alcoholic d o not exceed 2 GM/DAY., 05/26/2019 11:08 PM CDT 4 mg morphine 4 mg/mL injection 4 mg Given 4 mg, Intravenous, Once, Wed05/26/19 at 2201, For 1 dose, Administer over 5 min ; max dose of IVP is 10 mg. Note: Limit does not apply to patients who may be tolerant to opioid therapy or on continuous IV or PO opiate therapy., documented in this encounter"
--- OUTSIDE RECORDS SUMMARY | 2019-11-28 22:20 | XMS REPORT | Encounter Summary ---
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 Role Phone Ebony Sharp MD PCP Reason for Referral * Surgical (Routine) Referred By Contact Referred To Contact Status Reason Specialty Diagnoses / [place] [address] [place] [address] [place] [address] [place] [address] Authorized Urology Diagnoses Left flank pain P rocedures External Uro Surgery * Diagnostic Imaging (Routine) Referred By Contact Referred To Contact Status Reason Specialty Diagnoses / [place] [address] [place] [address] Authorized Diagnoses Left flank pain P rocedures Electrocardiogram (ECG) Reason for Visit * Reason Comments Nephrolithiasis new patient * Consultation (Routine) Referred By Contact Referred To Contact Status Reason Specialty Diagnoses / Procedures Ebony Sharp MD [address] [facility] [address] [place] [address] [address] [facility] [address] [place] [address] Closed Specialty Services Urology Diagnoses Required Left flank pain Encounter Details Care Team Description Date [place] [address] [place], [place] [id number] [phone] Urethral diverticulum; Left flank pain; Renal calculus 06/21/2019 Office Visit [facility] [address] [place] [address] Social History Date Tobacco Use Types Packs/Day [...] Signs Reading Time Taken Comments Vital Sign 154/93 06/21/2019 1:00 PM CDT Blood Pressure 73 06/21/2019 1:00 PM CDT Pulse - - Temperature - - Respiratory Rate - - Oxygen Saturation - - Inhaled Oxygen Concentration 101.7 kg (224 lb 3.2 oz) 06/21/2019 1:00 PM CDT Weight 152.4 cm (5') 06/21/2019 1:00 PM CDT Height 43.79 06/21/2019 1:00 PM CDT Body Mass Index documented in this encounter Patient Instructions * Patient Instructions* Darin Huber MD - 06/21/2019 1:20 PM CDT Kidney Stones: Are You at Risk? People [...] [] [] Do you live in the [place] or another hot climate? [] [] Have [...] in salt and meat content? (Eating a gjpy-nwdotd-vsdkyty di et is a risk for uric [...] how to prevent them. Date Last Reviewed: 08/23/201619990983-[address] [employer] [place] [address] 7. All rights reserved. This information is not intended as a substitute for pro fessional medical care. Always follow your healthcare professional's instruction s. documented in this encounter Progress Notes * Darin Huber MD - 06/21/2019 1:20 PM CDT Urology New Patient Consult Darin Huber Encounter Date: 06/21/2019 1:29 PM Patient Demographic Information: Patient Name: Caren Patten Age: 68 y.o. Sex: female Date of : 1950 PCP: Ebony Sharp MD Physician requesting consultation: Ebony Sharp MD Chief Complaint Patient presents with Nephrolithiasis new patient Diagnoses of Urethral diverticulum, Left flank pain, and Renal calculus were per tinent to this visit. HPI Pt presents for initial consultation regarding kidney stones Pt does not have a family hx of kidney stones. Associated symptoms:suprabubic pain The patient denies: Symptoms: fever, chills and nausea Duration of most recent stone: days. Most recent treatment: Recent Tx of: none Course of symptoms: worsening. Also Urethral Diverticulum AUA Score Sheet Over the past month 1) Incomplete emptying 4 - More than half the time 2) Frequency 5 - Almost always 3) Hesitancy 2 - Less than half the time 4) Urgency 5 - Almost always 5) Weak stream 5 - Almost always 6) Straining 5 - Almost always 7.) Nocturia 3 - 3 times Total Score 29 Quality of Life 3 - Mixed Histories Past Medical History: Diagnosis Date Acute bleeding 08/08/2016 Allergic rhinitis Anxiety Bronchitis, chronic ([facility]) Cataract 2011, 2012 bilat cateract surgery Chronic pain disorder back, ribs, and ankle. COPD (chronic obstructive pulmonary disease) ([facility]) Depression Draining postoperative wound 08/08/2016 Endometriosis Essential hypertension Fractures [address] in Left ankle MATA (generalized anxiety disorder) 09/24/2015 Hernia of abdominal cavity Kidney stone Mixed hyperlipidemia 09/24/2015 Morbid obesity due to excess calories ([facility]) 07/10/2016 On home oxygen therapy 2L - usually needs if has an exerbation of COPD, or resp illness SASHA on CPAP Osteoarthritis Sleep apnea uses CPAP Type 2 diabetes mellitus with hyperglycemia, with long-term current use of i nsulin ([facility]) 06/29/2016 Urinary calculi Urinary tract infection 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 Past Surgical History: Procedure Laterality Date ANKLE FRACTURE SURGERY Left 1998 fx in 3 places and w/screws in place APPENDECTOMY CATARACT EXTRACTION W/ INTRAOCULAR LENS IMPLANT Bilateral SECTION, CLASSIC CHOLECYSTECTOMY COLONOSCOPY HAND SURGERY Left 03/09/2019 CTR HERNIA REPAIR HYSTERECTOMY OOPHORECTOMY REMOVAL, HARDWARE, FOOT OR ANKLE Left 04/09/2017 Procedure: LEFT ANKLE REMOVAL OF HARDWARE WITH REVISION LEFT ANKLE ARTHRODESIS; Surgeon: Adelaida Olivas MD; Location: [facility] Main OR; Service: Orthopedics; Later ality: Left; REPAIR, INCISIONAL HERNIA, LAPAROSCOPIC, USING MESH N/A 05/25/2018 Procedure: LAPAROSCOPIC INCISIONAL HERNIA REPAIR WITH MESH; Surgeon: Medardo Tate MD; Location: [facility] Main OR; Service: General; Laterality: [...] Financial resource strain: Not on file Food insecurity: Worry: Not on file Inability: Not on file Transportation needs: Medical: Not on file Non-medical: Not on file Tobacco Use Smoking status: Former Smoker Packs/day: 0.33 Years: 20.00 Pack years: 6.60 Types: Cigarettes Start date: 1990 Last attempt to quit: 04/2011 Years since quittin.1 Smokeless tobacco: Never Used Tobacco comment: quit 7 years ago Substance and Sexual Activity Alcohol use: Yes Comment: 0-1 a month Drug use: No Sexual activity: Never Lifestyle Physical activity: Days per week: Not on file Minutes per session: Not on file Stress: Not on file Relationships Social connections: Talks on phone: Not on file Gets together: Not on file Attends gnosticist service: Not on file Active member of club or organization: Not on file Attends meetings of clubs or organizations: Not on file Relationship status: Not on file Intimate partner violence: Fear of current or ex partner: Not [...] Natural Rubber Sulfa (Sulfonamide Antibiotics) Hives Current Medications Current Outpatient Medications Medication Sig Dispense Refill albuterol (VENTOLIN HFA) 90 mcg/actuation HFA inhaler INHALE 1 PUFF EVERY 4 HOURS NEEDED FOR WHEEZING 18 g 2 amitriptyline (ELAVIL) 25 MG tablet TAKE 1 TABLET BY MOUTH EVERY NIGHT 90 ta blet 0 atorvastatin (LIPITOR) 40 MG tablet Take 1 tablet (40 mg total) by mouth jcarlos ly. 90 tablet 1 BREO ELLIPTA 200-25 mcg/dose INHALER INHALE 1 PUFF BY MOUTH DAILY 60 each 0 citalopram (CELEXA) 20 mg tablet TAKE 1 TABLET BY MOUTH DAILY 90 tablet 0 cyclobenzaprine (FLEXERIL) 10 MG tablet Take 1 [...] for pain. Max Daily Dose: 4 tablets 60 tablet 0 insulin glargine (LANTUS U-100 INSULIN) [...] 3 mL 4 (four) times a day. 360 mL 11 metoprolol tartrate (LOPRESSOR) 100 MG tablet TAKE 1 TABLET(100 MG) BY MOUTH TWICE DAILY 180 tablet 1 OXYGEN THERAPY 2 L/min as needed. amLODIPine (NORVASC) 2.5 MG tablet Take 2 tablets (5 mg total) by mouth eve y. Take one daily. 180 tablet 1 amLODIPine (NORVASC) 2.5 MG tablet TAKE 1 TABLET(2.5 MG) BY MOUTH DAILY 90 t ablet 0 cephalexin (KEFLEX) 500 MG capsule meloxicam (MOBIC) 7.5 MG tablet TAKE 1 TABLET(7.5 MG) BY MOUTH DAILY 90 tabl et 1 spironolactone (ALDACTONE) 100 MG tablet Take 1 tablet (100 mg total) by tanna th 2 (two) times a day. (Please take 1 daily for the first week) 180 tablet 1 traMADol (ULTRAM) 50 mg tablet Take 1 tablet (50 mg total) by mouth every 8 (eight) hours as needed for pain. Max Daily Dose: 150 mg 25 tablet 0 No current facility-administered medications for this visit. Review of Systems Review of Systems Constitutional: Positive for chills and diaphoresis. Negative for fever and benedict ise/fatigue. HENT: Positive for ear pain. Negative for congestion. Eyes: Positive for blurred vision. Negative for pain. Respiratory: Positive for wheezing. Negative for cough and shortness of breath. Cardiovascular: Positive for chest pain. Negative for palpitations and leg swell ing. Gastrointestinal: Positive for abdominal pain, diarrhea and nausea. Negative for blood in stool, constipation and vomiting. Genitourinary: Positive for flank pain, urgency, difficulty emptying bladder, bl ood in urine, bladder pain, kidney stones and vaginal discharge. Negative for dy suria, hematuria, loss of urine control, slow stream and urinary tract infection s. Musculoskeletal: Positive for back pain, myalgias and neck pain. Negative for yoana int pain. Skin: Positive for rash. Negative for itching. Neurological: Positive for dizziness and headaches. Negative for focal weakness. Endo/Heme/Allergies: Bruises/bleeds easily. Psychiatric/Behavioral: Positive for memory loss. The patient is nervous/anxious . All other systems reviewed and are negative. LAB: No results found for this or any previous visit (from the past 24 hour(s)). Physical Exam Vitals: 06/21/19 1300 BP: (!) 154/93 Pulse: 73 Weight: 101.7 kg (224 lb 3.2 oz) Height: 1.524 m (5') Gen: Alert and oriented HEENT: Normocephalic, Atraumatic Eyes: PERRL, EOMI Lungs: non-labored, good effort CV: Palp pulse in all 4 extremities Abd: Soft, non-tender, non-distended Back: No CVA tenderness on the RIGHT, No CVA tenderness on LEFT EXT: No tenderness or edema Skin: Warm, dry and intact Neuro: CN II-XII grossly intact Bladder: no bladder distension noted Assessment/Plan Problem List Genitourinary Renal calculus Overview 06/21/2019 Snyder is a 68-year-old female with a few week history of left knee pain. She und erwent a CT scan at [facility] that demonstrated proximal a 1.5 cm left [...] and stent. - Pre-op Labs - Ucx Urethral diverticulum Relevant Orders POCT UA w Micro Only Return for Schedule ureteroscopy. Electronically signed by: Darin Huber 06/21/2019 1:29 PM documented in this encounter Plan of Treatment Care Team Description [place] [address] [place] [address] [phone] 02/29/2020 Office Visit Urology Order Schedule Name Type Priority Associated Diag noses 1 Occurrences starting 06/21/2019 until 12/20/2020 Urine Culture Microbiology Routine Left flank pain 1 Occurrences starting 06/21/2019 until 12/20/2020 Electrocardiogram (ECG) ECG Routine Left f lank pain documented as of this encounter Procedures Comments Procedure Name Priority Date/Time Associated Diag nosis POCT UA W MICRO ONLY Routine 06/21/2019 Urethral diverticulum 1:40 PM CDT Left flank pain documented in this encounter Results * POCT UA w Micro Only (06/21/2019 1:40 PM CDT) Appearance, Urine Glucose Urine 500 (A) Negative mg/dL Bilirubin Urine Ketones Urine Negative Negative Specific 1.025 1.001 - 1.030 [place], UA Hemoglobin Negative Negative Urine PH Urine 6.0 5.0 - 8.0 Protein Urine Negative Negative Qual Urobilinogen 0.2 Negative EU/dL Urine Nitrite Urine Negative Negative Leukocyte Trace (A) Negative Esterase Microscopic 3-5 rbc/ 5-10 wbc Examination Specimen Urine documented in this encounter Visit Diagnoses Diagnosis Urethral diverticulum Left flank pain Abdominal pain, unspecified site Renal calculus Calculus of kidney documented in this encounter
--- OUTSIDE RECORDS SUMMARY | 2019-11-28 22:20 | XMS REPORT | Encounter Summary ---
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 Name Role Phone Ebony Sharp MD PCP Encounter Details Care Team Description Date Type Department Ebony Sharp MD [address] [facility] [address] [place], [place] [id number] Left flank pain; Essential hypertension; Type 2 diabetes mellitus with hyperglycemia, 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); Hyperthyroidism 06/13/2019 Lab [facility] Primar y Care - [facility] [place] [address] [facility] [address] [facility] [place], [place] [id number] Social History Date Tobacco Use Types Packs/Day [...] Progress Notes * Ebony Sharp MD - 06/13/2019 2:10 PM CDT No UTI. Your diabetes continues to be very poorly controlled. You MUST see an e learning specialist for management. This is far too complicated for me as I believe your thyroid and your diabetes warrant assistance from our specialists. Increase your lantus to 20 units at night. Do not miss doses. documented in this encounter Plan of Treatment Care Team Description Date [place] [address] [place] [address] [phone] 02/29/2020 Office Visit Urology documented as of this encounter Procedures Comments Procedure Name Priority Date/Time Associated Diag nosis URINALYSIS MICROSCOPIC Routine 06/13/2019 ONLY 2:29 PM CDT URINALYSIS REFLEX Routine 06/13/2019 Left flank p ain 2:29 PM CDT CULTURE, URINE Routine 06/13/2019 2:29 PM CDT THYROID STIMULATING Routine 06/13/2019 Hyperthyro idism HORMONE 2:29 PM CDT T4 FREE Routine 06/13/2019 Hyperthyroidism 2:29 PM CDT HEMOGLOBIN A1C Routine 06/13/2019 Type 2 diabetes mellitus 2:29 PM CDT with hyperglycemia, 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) COMPREHENSIVE METABOLIC Routine 06/13/2019 Essent ial hypertension PANEL 2:29 PM CDT CBC AND DIFF (MANUAL DIFF Routine 06/13/2019 Esse ntial hypertension IF NECESSARY) 2:29 PM CDT documented in this encounter Results * Culture, Urine (06/13/2019 2:29 PM CDT) Culture Result No growth [facility] Specimen Urine Performing Organization Address City/State/[facility] Ph one Number [address] [address] LABORATORIES [facility] [address] [place] [address] * Urinalysis Microscopic Only (06/13/2019 2:29 PM CDT) Microscopic RBC 11 - 20 (A) 0 - 5 /hpf [facility] Urine [facility] Lab Microscopic WBC 21-40 (A) 0 - 5 /hpf [facility] Urine [facility] Epithelial Large (A) Absent [facility] Hyaline Cast Absent Absent [facility] Bacteria Absent Absent [facility] Specimen Urine Performing Organization Address City/[facility] Ph one Number [facility] [address] [place] [address] LABORATORIES [facility] [address] [place] [address] * Thyroid Stimulating Hormone (06/13/2019 2:29 PM CDT) Thyroid 0.19 (L) 0.47 - 4.68 uIU/mL [facility] Lab Hormone Specimen Blood Performing Organization Address City/[facility]/Zipcode Ph one Number [facility] [address] [place] [address] LABORATORIES [facility] [address] [place] [address] * T4 Free (06/13/2019 2:29 PM CDT) T4 Free 1.0 0.8 - 2.2 ng/dL [facility] Specimen Blood Performing Organization Address City/[facility] Ph one Number [facility] [address] [place] [address] LABORATORIES [facility] [address] [place] [address] * Hemoglobin A1C (06/13/2019 2:29 PM CDT) Hemoglobin A1C 11.0 (H) 4.0 - 5.6 % [facility] Comment: Hospital Lab Non-diabetic 4.0 - 5.6 % Prediabetes 5.7 - 6.4 % Diabetes >= 6.5 % Specimen Blood Performing Organization Address City/[facility]/Zipcode Ph one Number [facility] [address] [place] [address] LABORATORIES [facility] [address] [place] [address] * Comprehensive Metabolic Panel (06/13/2019 2:29 PM CDT) Sodium 136 133 - 147 MEQ/L [facility] Potassium 4.4 3.5 - 5.3 MEQ/L [facility] Chloride 98 96 - 112 MEQ/L [facility] Carbon Dioxide 29 20 - 32 MEQ/L [facility] Anion Gap 9 5 - 17 [facility] Calcium 9.4 8.4 - 10.5 mg/dL [facility] Glucose 301 (H) 70 - 100 mg/dL [facility] Protein Total 7.9 6.0 - 8.2 g/dL [facility] Serum [facility] Lab Albumin 4.3 3.5 - 5.0 g/dL [facility] Alkaline 104 42 - 140 IU/L [facility] Lab Alanine 39 (H) 0 - 34 IU/L [facility] e Aspartate 41 15 - 46 IU/L [facility] Lab e Bilirubin Total 0.2 0.2 - 1.3 mg/dL [facility] Blood Urea 12 7 - 26 mg/dL [facility] Lab Creatinine 0.7 0.4 - 1.1 mg/dL [facility] eGFR Female AA 100 60 - 200 [facility] mL/min/1.73sq [facility] Lab eGFR Female 84 60 - 200 [facility] Non-AA mL/min/1.73sq [facility] Lab Specimen Blood Performing Organization Address City/State/[facility] Ph one Number [address] [address] LABORATORIES [facility] [address] [place] [address] * CBC and Diff (manual diff if necessary) (06/13/2019 2:29 PM CDT) WBC 9.20 4.00 - 11.00 TH/uL [facility] Lab RBC 4.55 4.00 - 5.00 MIL/uL [facility] Lab Hemoglobin 14.9 12.0 - 15.0 g/dL [facility] Hematocrit 46 (H) 36 - 45 % [facility] MCV 100 (H) 80 - 99 fL [facility] MCH 33 27 - 34 pg [facility] MCHC 33 32 - 36 % [facility] RDW 13.3 11.5 - 14.5 % [facility] Platelet Count 208 140 - 400 TH/uL [facility] MPV 10.3 9.4 - 12.3 fL [facility] Nucleated RBCs 0 0 - 0 /100 [facility] % Neutrophils 53 45 - 78 % [facility] %Lymphocytes 34 15 - 47 % [facility] %Monocytes 9 0 - 12 % [facility] %Eosinophils 3 0 - 7 % [facility] %Basophils 1 0 - 2 % [facility] % Imm Grans 0 0 - 1 % [facility] # Granulocytes 4.91 1.70 - 6.80 TH/uL [facility] # Lymphocytes 3.14 1.00 - 3.30 TH/uL [facility] # Monocytes 0.79 0.20 - 0.90 TH/uL [facility] # Eosinophils 0.28 0.00 - 0.40 TH/uL [facility] # Basophils 0.08 0.00 - 0.10 TH/uL [facility] Specimen Blood Performing Organization Address City/State/Zipcode Ph one Number [address] [address] LABORATORIES [facility] [address] [place] [address] * Urinalysis Reflex (06/13/2019 2:29 PM CDT) Appearance, Yellow [facility] Lab Glucose Urine >=1000 (A) Negative mg/dL [facility] Bilirubin Urine Negative Negative [facility] Ketones Urine Negative Negative mg/dL [facility] Specific >=1.030 1.001 - 1.030 [facility] Lab Hemoglobin Small (A) Negative [facility] Lab PH Urine 5.0 5.0 - 8.0 [facility] Protein Urine Trace (A) Negative mg/dL [facility] Lab Urobilinogen Negative Negative EU/dL [facility] Urine [facility] Lab Nitrite Urine NegativeComment: Culture Negative [facility] Ordered [facility] Lab Leukocyte Negative Negative [facility] Lab Specimen Urine Performing Organization Address City/State/Zipcode Ph one Number [facility] [address] [place] [phone] LABORATORIES [facility] [address] [place] [address] documented in this encounter Visit Diagnoses Diagnosis Left flank pain Abdominal pain, unspecified site Essential hypertension Unspecified essential hypertension Type 2 diabetes mellitus with hyperglyc emia, 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) Hyperthyroidism Thyrotoxicosis without mention of goite r or other cause, without mention of thyrotoxic crisis or storm documented in this encounter
--- OUTSIDE RECORDS SUMMARY | 2019-11-28 22:20 | XMS REPORT | Encounter Summary ---
Author Author [facility] Organization [facility] Address Unknown Phone Unavailable Care Team Providers Care Decal Cutter Name Role Phone Ebony Sharp MD PCP Reason for Referral * MRI/CAT/PET Scan (Routine) Referred By Contact Referred To Contact Status Reason Specialty Diagnoses / Procedures Ebony Sharp MD [address] [facility] [address] [place] [address] [facility] [place] [address] Closed Radiology Diagnoses Left flank pain P rocedures CT Abdomen Pelvis wo contrast * Consultation (Routine) Referred By Contact Referred To Contact Status Reason Specialty Diagnoses / Procedures Ebony Sharp MD [address] [facility] [address] [place] [address] [address] [facility] [address] [place] [address] Closed Specialty Services Urology Diagnoses Required Left flank pain Reason for Visit * Reason Comments Follow-up Hospital FU Encounter Details Care Team Description Date Type Department Ebony Sharp MD [address] [facility] [address] [place] [id number] [phone] Type 2 diabetes mellitus with hyperglyce prasanna, 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) (Primary Dx); Mixed hyperlipidemia; Essential hypertension; Left flank pain; Hyperthyroidism 06/13/2019 Office Visit [facility] (walk-in clinic) [address] [facility] [address] [place], [place] [id number] Social History Date Tobacco Use Types Packs/Day [...] Signs Reading Time Taken Comments Vital Sign 140/82 06/13/2019 1:41 PM CDT Blood Pressure 84 06/13/2019 1:41 PM CDT Pulse - - Temperature - - Respiratory Rate 93% 06/13/2019 1:41 PM CDT Oxygen Saturation - - Inhaled Oxygen Concentration 101.5 kg (223 lb 12.8 oz) 06/13/2019 1:41 PM CDT Weight 152.4 cm (5') 06/13/2019 1:41 PM CDT Height 43.71 06/13/2019 1:41 PM CDT Body Mass Index documented in this encounter Progress Notes * Ebony Sharp MD - 06/13/2019 1:30 PM CDT CC: Follow-up ([facility] ) HPI : Isiah Benítez is a 68 y.o. female who presents with complaints of Follow-up ([facility] ) Patient here for a follow up. She is also having severe pain in the left flank. She has been to the ER and had UA and CT. There were no stones in the ureters at that time. SHe is due for follow up on her a1c. She does not believe taht she will be much better than the last check. ALLERGIES: Allergies Allergen Reactions Lisinopril Anaphylaxis Metformin Anaphylaxis Latex, Natural Rubber Sulfa (Sulfonamide Antibiotics) Hives CURRENT MEDICATIONS: Current Outpatient Medications Medication Sig Dispense Refill albuterol (VENTOLIN HFA) 90 mcg/actuation HFA inhaler INHALE 1 PUFF EVERY 4 HOURS NEEDED FOR WHEEZING 18 g 2 amitriptyline (ELAVIL) 25 MG tablet TAKE 1 TABLET BY MOUTH EVERY NIGHT 90 ta blet 0 amLODIPine (NORVASC) 2.5 MG tablet Take 2 tablets (5 mg total) by mouth eve y. Take one daily. 180 tablet 1 amLODIPine (NORVASC) 2.5 MG tablet TAKE 1 TABLET(2.5 MG) BY MOUTH DAILY 90 t ablet 0 atorvastatin (LIPITOR) 40 MG tablet Take 1 tablet (40 mg total) by mouth jcarlos ly. 30 tablet 11 BREO ELLIPTA 200-25 mcg/dose INHALER INHALE 1 PUFF BY MOUTH DAILY 60 each 0 BREO ELLIPTA 200-25 mcg/dose INHALER INHALE 1 PUFF BY MOUTH DAILY 60 each 1 cephalexin (KEFLEX) 500 MG capsule citalopram (CELEXA) 20 mg tablet TAKE 1 TABLET BY MOUTH DAILY 90 tablet 0 cyclobenzaprine (FLEXERIL) 10 MG tablet 5 gabapentin (NEURONTIN) 300 MG capsule TAKE 2 CAPSULES BY MOUTH THREE TIMES D AILY 540 capsule 0 insulin glargine (LANTUS U-100 INSULIN) 100 unit/mL injection ADMINISTER 15 UNITS UNDER THE SKIN EVERY NIGHT. E11.9 10 mL 5 insulin syringe (BD ULTRA-FINE) 0.3 mL 31 gauge x 5/16 Inject under the skin daily. use as directed 100 each 0 insulin syringe 0.3 mL 31 gauge x 5/16 USE DIRECTED 100 each 1 ipratropium-albuterol (DUO-NEB) 0.5-3 mg/3 mL nebulizer Inhale 3 mL 4 (four) times a day. 360 mL 11 meloxicam (MOBIC) 7.5 MG tablet TAKE 1 TABLET(7.5 MG) BY MOUTH DAILY 90 tabl et 1 metoprolol tartrate (LOPRESSOR) 100 MG tablet TAKE 1 TABLET(100 MG) BY MOUTH TWICE DAILY 180 tablet 1 OXYGEN THERAPY 2 L/min as needed. traMADol (ULTRAM) 50 mg tablet Take 1 tablet (50 mg total) by mouth every 8 (eight) hours as needed for pain. Max Daily Dose: 150 mg 25 tablet 0 spironolactone (ALDACTONE) 100 MG tablet Take 1 tablet (100 mg total) by tanna th 2 (two) times a day. (Please take 1 daily for the first week) 180 tablet 1 No current facility-administered medications for this visit. 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 Social Needs Financial resource strain: None Food insecurity: Worry: None Inability: None Transportation needs: Medical: None Non-medical: None Tobacco Use Smoking status: Former Smoker Packs/day: 0.33 Years: 20.00 Pack years: 6.60 Types: Cigarettes Start date: 1990 Last attempt to quit: 04/2011 Years since quittin.1 Smokeless tobacco: Never Used Tobacco comment: quit 7 years ago Substance and Sexual Activity Alcohol use: Yes Comment: 0-1 a month Drug use: No Sexual activity: Never Lifestyle Physical activity: Days per week: None Minutes per session: None Stress: None Relationships Social connections: Talks on phone: None Gets together: None Attends bahai service: None Active member of club or organization: None Attends meetings of clubs or organizations: None Relationship status: None Intimate partner violence: Fear of current or ex partner: None [...] 2 - PCV13) 2017 Lipid Screening 04/07/2019 Influenza Vaccine (1) 06/23/2019 Zoster Vaccine# (1 of 2) 11/29/2020 (Originally 2002) Diabetes Mellitus Hemoglobin A1C 07/16/2019 Diabetes Mellitus Urine Microalbumin 09/12/2019 Medicare Annual Wellness 12/13/2019 Colorectal Screening via Colonoscopy 12/24/2019 Fall Risk Assessment # 05/26/2020 Osteoporosis Screening 09/12/2023 Hepatitis C Screen Completed Td # Discontinued Immunization History Administered Date(s) Administered Influenza QIV (IM) 06/18/2014, 05/09/2016, 07/09/2017 Influenza Virus Vaccine, Split Virus (Incl. Purified Surface Antigen)-retire d Code 07/06/2013 Influenza, Seasonal, Injectable 06/08/2012 Pneumococcal Polysaccharide 23-Valent 05/09/2016 Seasonal Trivalent Influenza Vaccine, Adjuvanted, Preservative Free 07/23/20 18 Review of Systems Constitutional: Negative. Respiratory: Negative. Cardiovascular: Negative. Gastrointestinal: Negative. Genitourinary: Positive for dysuria and flank pain (left). Psychiatric/Behavioral: Negative. OBJECTIVE Vitals: 06/13/19 1341 BP: (!) 140/82 BP Location: Left arm Patient Position: Sitting Cuff size: X-Large Pulse: 84 SpO2: 93% Weight: 101.5 kg (223 lb 12.8 oz) Height: 1.524 m (5') Estimated body mass index is 43.71 kg/m as calculated from the following: Height as of this encounter: 1.524 m (5'). Weight as of this encounter: 101.5 kg (223 lb 12.8 oz). Physical Exam Constitutional: She appears well-developed and well-nourished. HENT: Head: Normocephalic and atraumatic. Cardiovascular: Normal rate, regular rhythm and normal heart sounds. Pulmonary/Chest: Effort normal and breath sounds normal. Musculoskeletal: She exhibits tenderness (severe left flank). Neurological: She is alert. No sensory deficit. Skin: Skin is warm and dry. Psychiatric: Tearful secondary to pain Nursing note and vitals reviewed. ASSESSMENT/PLAN: Isiah was seen today for follow-up. Diagnoses and all orders for this visit: Type 2 diabetes mellitus with hyperglycemia, with long-term current use of insul in (HCC) - Hemoglobin A1C; Future Mixed hyperlipidemia Essential hypertension - CBC and Diff (manual diff if necessary); Future - Comprehensive Metabolic Panel; Future Left flank pain - Urinalysis Reflex; Future - Ambulatory referral to Urology; Future - CT Abdomen Pelvis wo contrast; Future Hyperthyroidism - T4 Free; Future - Thyroid Stimulating Hormone; Future Other orders - HYDROcodone-acetaminophen (NORCO) 5-325 mg per tablet; Take 1 tablet by ca ut every 6 (six) hours as needed for pain. Max Daily Dose: 4 tablets 1. Severe pain in the left flank - check UA and CT abd/pel. Will refer her to see urology as soon as possible to further eval. 2. HLD - update lipid 3. HTN - slightly elevated currently right wendy 4. Hyperthyroid - update the tsh, t4 5. DM2 - check a1c Ebony Sharp MD documented in this encounter Plan of Treatment Care Team Description [place] [address] [place] [address] [id number] 02/29/2020 Office Visit Urology Order Schedule Name Type Priority Associated Diag noses 1 Occurrences starting 06/13/2019 until 12/13/2019 Ambulatory referral to Outpatient Routine Left fl ank pain Urology Referral documented as of this encounter Results * CT Abdomen Pelvis wo contrast (06/16/2019 11:58 AM CDT) Specimen Impressions Performed At Impression: LEVI No CT cause for patient's pain identifi ed on limited unenhanced CT of the abdomen and pelvis Stable nonobstructing left renal stone Hepatomegaly and diffuse fatty infiltra tion of the liver Stable ureteral diverticulum READING SITE: [facility] Narrative Performed At Patient: ISIAH BENÍTEZ Sex#: F #: [id number] #: [id number] [place] [facility] [place] Procedure Requested: [id number] CT ABDOM EN PELVIS WO CONTRAST Reason [...] - 06/16/2019 1:50 PM CDT Patient: ISIAH BENTÍEZ Sex#: Paulina #: [id number] Jose#: [id number] [place] [facility] [place] Procedure Requested: [id number] CT ABDOMEN PELVIS WO CONTRAST Reason for [...] the liver Stable ureteral diverticulum READING SITE: [facility] Performing Organization Address [facility] one Number LEVI * Thyroid Stimulating Hormone (06/13/2019 2:29 PM CDT) Thyroid 0.19 (L) 0.47 - 4.68 uIU/mL [facility] Hormone Specimen Blood Performing Organization Address [facility] one Number [address] [address] LABORATORIES [facility] [address] [place] [address] * T4 Free (06/13/2019 2:29 PM CDT) T4 Free 1.0 0.8 - 2.2 ng/dL [facility] Specimen Blood Performing Organization Address [facility] one Number [address] [address] LABORATORIES [facility] [address] [place] [address] * Hemoglobin A1C (06/13/2019 2:29 PM CDT) Hemoglobin A1C 11.0 (H) 4.0 - 5.6 % [facility] Comment: Hospital Lab Non-diabetic 4.0 - 5.6 % Prediabetes 5.7 - 6.4 % Diabetes >= 6.5 % Specimen Blood Performing Organization Address [facility] one Number [address] [address] LABORATORIES [facility] [address] [place] [address] * Comprehensive Metabolic Panel (06/13/2019 2:29 PM CDT) [facility] Sodium 136 133 - 147 MEQ/L [facility] Potassium 4.4 3.5 - 5.3 MEQ/L [facility] Chloride 98 96 - 112 MEQ/L [facility] Carbon Dioxide 29 20 - 32 MEQ/L [facility] Anion Gap 9 5 - 17 [facility] Calcium 9.4 8.4 - 10.5 mg/dL [facility] Glucose 301 (H) 70 - 100 mg/dL [facility] Protein Total 7.9 6.0 - 8.2 g/dL [facility] Lab Albumin 4.3 3.5 - 5.0 g/dL [facility] Alkaline 104 42 - 140 IU/L [facility] Lab Alanine 39 (H) 0 - 34 IU/L [facility] e Aspartate 41 15 - 46 IU/L [facility] Lab e Bilirubin Total 0.2 0.2 - 1.3 mg/dL [facility] Blood Urea 12 7 - 26 mg/dL [facility] Creatinine 0.7 0.4 - 1.1 mg/dL [facility] Lab eGFR Female AA 100 60 - 200 [facility] mL/min/1.73sq [facility] Lab eGFR Female 84 60 - 200 [facility] Non-AA mL/min/1.73sq [facility] Specimen Blood Performing Organization Address City/State/Zipcode Ph one Number [address] [address] LABORATORIES [facility] [address] [place] [address] * CBC and Diff (manual diff if necessary) (06/13/2019 2:29 PM CDT) [facility] WBC 9.20 4.00 - 11.00 TH/uL [facility] RBC 4.55 4.00 - 5.00 MIL/uL [facility] Hemoglobin 14.9 12.0 - 15.0 g/dL [facility] Hematocrit 46 (H) 36 - 45 % [facility] MCV 100 (H) 80 - 99 fL [facility] MCH 33 27 - 34 pg [facility] MCHC 33 32 - 36 % [facility] RDW 13.3 11.5 - 14.5 % [facility] Platelet Count 208 140 - 400 TH/uL [facility] MPV 10.3 9.4 - 12.3 fL [facility] Nucleated RBCs 0 0 - 0 /100 [facility] % Neutrophils 53 45 - 78 % [facility] %Lymphocytes 34 15 - 47 % [facility] %Monocytes 9 0 - 12 % [facility] %Eosinophils 3 0 - 7 % [facility] %Basophils 1 0 - 2 % [facility] % Imm Grans 0 0 - 1 % [facility] # Granulocytes 4.91 1.70 - 6.80 TH/uL [facility] # Lymphocytes 3.14 1.00 - 3.30 TH/uL [facility] # Monocytes 0.79 0.20 - 0.90 TH/uL [facility] # Eosinophils 0.28 0.00 - 0.40 TH/uL [facility] # Basophils 0.08 0.00 - 0.10 TH/uL [facility] Specimen Blood Performing Organization Address City/State/Zipcode Ph one Number [address] [address] LABORATORIES [facility] [address] [place] [address] * Urinalysis Reflex (06/13/2019 2:29 PM CDT) Appearance, Yellow [facility] Glucose Urine >=1000 (A) Negative mg/dL [facility] Bilirubin Urine Negative Negative [facility] Ketones Urine Negative Negative mg/dL [facility] Specific >=1.030 1.001 - 1.030 [facility] Hemoglobin Small (A) Negative [facility] PH Urine 5.0 5.0 - 8.0 [facility] Protein Urine Trace (A) Negative mg/dL [facility] Urobilinogen Negative Negative EU/dL [facility] Nitrite Urine NegativeComment: Culture Negative [facility] Leukocyte Negative Negative [facility] Lab Specimen Urine Performing Organization Address City/State/Zipcode Ph one Number [address] [id number] LABORATORIES [facility] [address] [place] [address] documented in this encounter Visit Diagnoses Diagnosis Type 2 diabetes mellitus with hyperglyc emia, 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) Mixed hyperlipidemia Essential hypertension Unspecified essential hypertension Left flank pain Abdominal pain, unspecified site Hyperthyroidism Thyrotoxicosis without mention of goite r or other cause, without mention of thyrotoxic crisis or storm documented in this encounter
--- OUTSIDE RECORDS SUMMARY | 2019-11-28 22:20 | XMS REPORT | Encounter Summary ---
Author Author Organization Address Unknown Phone Unavailable Care Team Providers Care Spiral Winder Name Role Phone Ebony Sharp MD PCP Reason for Visit * Auth/Cert Referred By Contact Referred To Contact Status Reason Specialty Diagnoses / Procedures Diagnoses R10.9 P rocedures CYSTO/URETERO W/LITHOTRIPSY &INDWELL STENT INSRT CYSTOSCOPY, LEFT RETROGRADE PYELOGRAM, LEFT URETEROSCOPY, LASER LITHOTRIPSY, LEFT URETERAL STENT PLACEMENT Encounter Details Care Team Description Date Type Department Medardo Pierce MD [address] [place] [address] [phone] [place] [address] [place] [address] [phone] 06/28/2019 Anesthesia [facility] [address] [place] [address] Anesthesia Record Responsible Anesthesiologist Anesthesia Start Time Anesthesi a Stop Time Procedure Name Medardo Pierce MD 06/28/19 0900 06/28/19 1013 CYSTOSCOPY, LEFT RETROGRADE PYELOGRAM, LEFT URETEROSCOPY, LEFT HOLMIUM LASER LITHOTRIPSY WITH STONE EXTRACTION, AND LEFT URETERAL STENT PLACEMENT (Left Ureter) Date Time Event Comment 814 0849 AN Equip Check 0859 In room 0900 An Start 0901 An Start Data 0902 Preoxygenated Prior to Induction 0903 Pt eval immediately prior to anesthesia 0904 An Induction 0905 An LMA 0908 PreOp Abx complete 0909 Anesthesia Ready 0915 Time out complete 0916 Procedure start - Primary Case 1004 Spontaneous respirations 1006 Procedure stop - Primary case 1007 LMA Removed 1009 an stop data 1010 Out of Room 1012 Handoff I completed my SBAR handoff to the receiving nurse in the PACU/ICU/OB Patient and PACU/ICU/OB nurse identifie d Discussed patient medical history Discussed procedure Reviewed intraopera tive anesthetic management and issues/concerns Discussed expectation f or early post-procedure period Questions from PACU/ICU/OB team address ed 1013 An Stop Meds Name Total midazolam (VERSED) injection 1 mg/mL 1 mg fentaNYL (SUBLIMAZE) injection 50 mcg/mL 75 mcg lidocaine 1% (PF) 50 mg propofol 10mg/mL 200 mg ondansetron 2mg/mL 4 mg ceFAZolin (ANCEF) injection 1 g 2 g lactated ringers infusion 500 mL * Name Cell Saver Blood Intake O2 N2O Air EtSEVO EtISO EtDES EtN2O * No blood administrations on file. Removal Type Details Placement 06/28/19 115 by Roosevelt Smiley RN Peripheral Date: 06/28/19; Time: 828; Size 06/28 0829 by Jeramie IV (gauge): 20 G; Orientation: Right; Karrie cheung RN Location: Hand; Site Prep: Chlorhexidine; Insertion Attempts: 2; Inserted By: Aline MEDINA ; Removal Date: 06/28/19; Removal Time: 11506/28/19 1007 by Rosa M White CRNA Non-Surgic Date: 06/28/19; Time: 904; Able to mas k 06/28/19904 by Rosa M lyons Airway ventilate prior to placement: Yes; Amy omalley CRNA Placed By: Grader Patrol; Site: Oral; Device: LMA; Size: 3; Attempts: 1 (atraumatic ); Removal Date: 06/28/19; Removal Time: 1007 06/28/19 115 by Roosevelt Smiley RN Urethral 06/28/19; 1004; Non-latex; 18 Fr. 02/08 1004 by Renaldo Menchaca RN documented in this encounter Social History Date [...] Postprocedure Evaluation - Medardo Pierce MD - 06/28/2019 1:52 PM ANTIQUE REPAIRER Anesthesia Post Evaluation Procedure(s):CYSTOSCOPY, LEFT RETROGRADE PYELOGRAM, LEFT URETEROSCOPY, LEFT VELVET IUM LASER LITHOTRIPSY WITH STONE EXTRACTION, AND LEFT URETERAL STENT PLACEMENT Surgeon: Darin Huber MD Patient Evaluated in: [...] Eval Vitals Most Recent Value BP (!) 152/95 filed at 06/28/2019 1130 Pulse 78 filed at 06/28/2019 1130 Temp 36.6 C (97.8 F) filed at 06/28/2019 1015 Resp 13 filed at 06/28/2019 1130 SpO2 93 % filed at 06/28/2019 1130 QUE REPAIRER * Anesthesia Preprocedure Evaluation - Medardo Pierce MD - 06/28/2019 8:05 AM ANTIQUE REPAIRER Relevant Problems No relevant active problems Anesthesia [...] confirmed sleep apnea CPAP, (-) recent URI Cardiovascular - normal exam Heart sounds: normal [...] and anxiety GI/Hepatic/Renal (+) chronic renal disease (-) GERD Endo/Other (+) poorly controlled type 2 diabetes mellitus using insulin Abdominal (+) obese morbid obesity Obstetrics HEENT - negative ROS (+) cataracts Musculoskeletal - negative ROS (+) arthritis osteoarthritis, chronic pain, Hematology/Oncology Anesthesia Plan ASA 3 Type: general () Plan to include: IV induction and supraglottic airway device Plan discussed with CREATIVE SERVICES WRITER. Anesthetic plan and risks discussed with patient. Use of blood products discussed with patient whom did not consent to blood produ cts. Special considerations: Faith. Post-operative analgesia: routine analgesia and antiemetics Recovery plan: PACU Risk factors for PONV: female and non smoker PONV Risk: moderate Notes LMA ok as NPO per guidelines and no active reflux or nausea. Risks/benefits/alternatives discussed with patient and all questions sought and answered. Patient wishes to proceed. Poor dentition QUE REPAIRER documented in this encounter Plan of Treatment Care Team Description Date [place] [address] [address] [phone] 02/29/2020 Office Visit Urology documented as of this encounter Visit Diagnoses Not on filedocumented in this encounter Administered Medications Action Date Dose Rate Site Medication Order MAR Action 06/28/2019 9:08 AM ANTIQUE REPAIRER 2 g ceFAZolin (ANCEF) injection Given As needed, Starting Wed06/28/19 at 0908 , Anesthesia Intra-op 06/28/2019 10:13 AM ANTIQUE REPAIRER 25 mcg fentaNYL (SUBLIMAZE) injection Given Intravenous, As needed, Starting Wed06/28/19 at 0909, Anesthesia Intra-op 25 mcg Given 06/28/2019 10:05 AM ANTIQUE REPAIRER 25 mcg Given 06/28/2019 9:09 AM ANTIQUE REPAIRER 06/28/2019 9:04 AM ANTIQUE REPAIRER 50 mg lidocaine (pf) (XYLOCAINE-MPF) 10 mg/mL Given (1 %) injection Intravenous, As needed, Starting Wed06/28/19 at 0904, Anesthesia Intra-op 06/28/2019 8:59 AM ANTIQUE REPAIRER 1 mg midazolam (PF) (VERSED) injection Given Intravenous, As needed, Starting Wed06/28/19 at 0859, Anesthesia Intra-op 06/28/2019 9:48 AM ANTIQUE REPAIRER 4 mg ondansetron (ZOFRAN) injection Given Intravenous, As needed, Starting Wed06/28/19 at 0948, Anesthesia Intra-op 06/28/2019 9:04 AM ANTIQUE REPAIRER 200 mg propofol (DIPRIVAN) injection Given Intravenous, As needed, Starting Wed06/28/19 at 0904, Anesthesia Intra-op documented in this encounter
--- OUTSIDE RECORDS SUMMARY | 2019-11-28 22:21 | XMS REPORT | Encounter Summary ---
Author Author [facility] Organization [facility] Address Unknown Phone Unavailable Care Team Providers Care Lead Recreation Assistant Name Role Phone Ebony Sharp MD PCP Reason for Referral * EMG (Routine) Referred By Contact Referred To Contact Status Reason Specialty Diagnoses / Procedures Walker Funez MD [address] [place] [address] Max Valentin MD [address] [place] [address] Closed Physical Diagnoses Medicine and Bilateral hand Rehabilitation numbness P rocedures EMG Reason for Visit * Reason Comments Pain Encounter Details Care Team Description Date Type Department Walker Funez MD [address] [facility] [address] [place] [address] [phone] Right wrist pain (Primary Dx); Bilateral hand numbness 01/13/2019 Initial consult [facility] [address] [facility] [address] [place], [place] [id number] Social History Date Tobacco Use Types Packs/Day Years Used 1990 - 04/2011 Former Smoker Cigarettes 0.33 20 Smokeless Tobacco: Never Used Comments: quit 7 years ago Drinks/Week oz/Week Comments Alcohol Use 0-1 a month Yes Sex Assigned at Date Recorded Female Industry Job Start Date Occupation Not on file Not on file Not on file Travel End Travel History Travel Start No recent travel history available. documented as of this encounter Last Filed Vital Signs Reading Time Taken Comments Vital Sign 116/77 01/13/2019 2:11 PM CDT Blood Pressure 85 01/13/2019 2:11 PM CDT Pulse 36.4 C (97.6 F) 01/13/2019 2:11 PM CDT Temperature 18 01/13/2019 2:11 PM CDT Respiratory Rate - - Oxygen Saturation - - Inhaled Oxygen Concentration 97.5 kg (215 lb) 01/13/2019 2:11 PM CDT Weight 157.5 cm (5' 2") 01/13/2019 2:11 PM CDT Height 39.32 01/13/2019 2:11 PM CDT Body Mass Index documented in this encounter Progress Notes * Ebony Sharp MD - 01/13/2019 2:30 PM CDT Refer ortho for carpal tunnel * Walker Funez MD - 01/13/2019 2:30 PM CDT [facility] [address] [facility] [address] [place] [address] Caren Patten female 1950 Chief Complaint Chief Complaint Patient presents with Right Wrist - Pain HPI Ms. Patten is a pleasant 68 y.o. -year-old female, right-handed, who comes into [facility] for right wrist pain. This has been bothering them for about 6 weeks. The pain starts just below her wrist and it radiates through to her fingers and up to her elbow. She reports she was opening a jar of pickles and since then she diggs s pain in her wrist. She reports numbness and tinglnig to her fingers as well. P ain on the volar aspect of her wrist. 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 No real treatment other than Lido jordyn cream and wrapping her wrist with an LUCIANO wrap. No other injuries or trauma . She reports similar symptoms on her left wrist as well but symptoms on the rig ht are worse. EXAM Bilateral Upper extremity: Hand is neurovascularly intact in the median, radial, and ulnar nervers, AIN, PIN, and ulnar motor. Brisk capillary refill of the dig its. She is able to flex and extend her fingers. Positive Tinel over carpal and cubital tunnel. Negative Phalen and Dante's over carpal tunnel as well. Pain ov er the carpal tunnel as well with palpation. Radiology Three XR views of the right wrist(AP, lateral, and oblique) were obtained and de monstrate no acute fractures or dislocations. No obvious bony abnormalities are seen Joint space is maintained. Assessment/Plan A 68 y.o.-year-old female with bilateral wrist pain and numbness and tingling. We discussed the diagnosis and treatment options. We will go ahead and order an EMG of both arms to evaluate for numbness and tingling. We did prescribe her diego e Tramadol as well for her pain. We will show her some braces as well to see if it helps with her symptoms. We will call her with the results of the EMG and nicko atment options. EXAM (continued) Gen: Alert and oriented, appropriate mood. Resp: Breathing unlabored CV: Palpable peripheral pulse, no cyanosis HEENT: Normocephalic, atraumatic. Skin: Intact without ulcerations or lesions Disposition: No Follow-up on file. New Orders: Orders Placed This Encounter Procedures XR Wrist min 3 views right Order Specific Question: Views: Answer: AP Open hand Order Specific Question: Views: Answer: Lateral Order Specific Question: Views: Answer: Oblique Past Medical History Past Medical History: Diagnosis Date Acute bleeding 08/08/2016 Allergic rhinitis Anxiety Bronchitis, chronic ([facility]) Cataract 2011, 2012 bilat cateract surgery Chronic pain disorder back, ribs, and ankle. COPD (chronic obstructive pulmonary disease) ([facility]) Depression Draining postoperative wound 08/08/2016 Endometriosis Essential hypertension Fractures [address] in Left ankle MATA (generalized anxiety disorder) 09/24/2015 Hernia of abdominal cavity Mixed hyperlipidemia 09/24/2015 Morbid obesity due to excess calories ([facility]) 07/10/2016 On home oxygen therapy 2L - usually needs if has an exerbation of COPD, or resp illness SASHA on CPAP Osteoarthritis Sleep apnea uses CPAP Type 2 diabetes mellitus with hyperglycemia, with long-term current use of i nsulin ([facility]) 06/29/2016 Urinary calculi Urinary tract infection 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 Surgical History: Past Surgical History: Procedure Laterality Date ANKLE FRACTURE SURGERY Left 1998 fx in 3 places and w/screws in place APPENDECTOMY CATARACT EXTRACTION W/ INTRAOCULAR LENS IMPLANT Bilateral SECTION, CLASSIC CHOLECYSTECTOMY COLONOSCOPY HYSTERECTOMY OOPHORECTOMY REMOVAL, HARDWARE, FOOT OR ANKLE Left 04/09/2017 Procedure: LEFT ANKLE REMOVAL OF HARDWARE WITH REVISION LEFT ANKLE ARTHRODESIS; Surgeon: Adelaida Olivas MD; Location: [facility] Main OR; Service: Orthopedics; Later ality: Left; REPAIR, INCISIONAL HERNIA, LAPAROSCOPIC, USING MESH N/A 05/25/2018 Procedure: LAPAROSCOPIC INCISIONAL HERNIA REPAIR WITH MESH; Surgeon: Medardo Tate MD; Location: [facility] Main OR; Service: General; Laterality: N/A; TONSILLECTOMY TOTAL KNEE ARTHROPLASTY Left 2009 TOTAL KNEE ARTHROPLASTY Right 2010 Risk Factors/Social History Social History Social History Marital status: Spouse name: N/A Number of children: N/A Years of education: N/A 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 Patten has one daughter, whom she lives with. She does not have an advanced directive. Medical surrogate decision maker is her daughter, Frank Garcia Code status: Full Vital Signs Vitals: 01/13/19 1411 BP: 116/77 Pulse: 85 Resp: 18 Temp: 36.4 C (97.6 F) TempSrc: Tympanic Weight: 97.5 kg (215 lb) Height: 1.575 m (5' 2") Allergies Allergies Allergen Reactions Lisinopril Anaphylaxis Metformin Anaphylaxis Latex, Natural Rubber Sulfa (Sulfonamide Antibiotics) Hives Medication List: Current Outpatient Prescriptions Medication Sig Dispense Refill albuterol (VENTOLIN HFA) 90 mcg/actuation HFA inhaler INHALE 1 PUFF EVERY 4 HOURS NEEDED FOR WHEEZING 18 g 2 amitriptyline (ELAVIL) 25 MG tablet TAKE 1 TABLET(25 MG) BY MOUTH EVERY NIGH T 90 tablet 1 amLODIPine (NORVASC) 2.5 MG tablet Take 2 tablets (5 mg total) by mouth eve y. Take one daily. 180 tablet 1 atorvastatin (LIPITOR) 40 MG tablet Take 1 tablet (40 mg total) by mouth jcarlos ly. 30 tablet 11 BREO ELLIPTA 200-25 mcg/dose INHALER INHALE 1 PUFF BY MOUTH DAILY 60 each 2 citalopram (CELEXA) 20 mg tablet TAKE 1 TABLET(20 MG) BY MOUTH DAILY 90 tabl et 1 cyclobenzaprine (FLEXERIL) 10 MG tablet Take 1 tablet (10 mg total) by mouth daily. 30 tablet 5 docusate sodium (COLACE) 100 MG capsule Take 1 capsule (100 mg total) by tanna th 2 (two) times a day as needed for constipation (first line therapy with polye thlene glycol). 60 capsule 0 gabapentin (NEURONTIN) 300 MG capsule TAKE 2 CAPSULES(600 MG) BY MOUTH THREE TIMES DAILY 540 capsule 1 insulin glargine (LANTUS U-100 INSULIN) 100 unit/mL injection ADMINISTER 15 UNITS UNDER THE SKIN EVERY NIGHT. E11.9 10 mL 5 insulin syringe (Mobitto ULTRA-FINE) 0.3 mL 31 gauge x 5/16 [...] 1 OXYGEN THERAPY 2 L/min as needed. spironolactone (ALDACTONE) 100 MG tablet Take 1 tablet (100 mg total) by tanna th 2 (two) times a day. (Please take 1 daily for the first week) 180 tablet 1 No current facility-administered medications for this visit. Review of Systems Constitutional: Negative for fever. HENT: Negative for congestion. Respiratory: Negative for cough. Cardiovascular: Negative for chest pain. Gastrointestinal: Negative for nausea and vomiting. Musculoskeletal: Positive for joint pain. Right wrist pain Neurological: Negative for dizziness and headaches. I have reviewed and concur with the medical, social and family histories collect ed and entered on my behalf on 01/13/2019 documented in this encounter Plan of Treatment Care Team Description Date [place] [address] [place] [id number] [phone] 02/29/2020 Office Visit Urology Date/Time Name Type Priority Associated Diag noses 01/13/2019 2:23 PM CDT XR Wrist min 3 views Imaging Routine Right wri st pain right documented as of this encounter Procedures Comments Procedure Name Priority Date/Time Associated Diag nosis EMG Routine 02/13/2019 Bilateral hand numbness 10:09 AM CDT documented in this encounter Results * EMG (02/13/2019 10:09 AM CDT) Specimen Narrative Performed At [facility] PLEASE CLICK THE BLUE SCANNED ORDER ALAN K BELOW TO REVIEW THE REPORT Procedure Note Interface, External Ris In - 02/13/2019 10:10 AM CDT PLEASE CLICK THE BLUE SCANNED ORDER LINK BELOW TO REVIEW THE REPORT Performing Organization Address City/State/Zipcode Ph one Number [facility] documented in this encounter Visit Diagnoses Diagnosis Right wrist pain Pain in joint, forearm Bilateral hand numbness Disturbance of skin sensation documented in this encounter
--- OUTSIDE RECORDS SUMMARY | 2019-11-28 22:21 | XMS REPORT | Encounter Summary ---
Author Author [facility] Organization [facility] Address Unknown Phone Unavailable Care Team Providers Care Operation Supervisor Name Role Phone Ebony Sharp MD PCP Reason for Referral * Diagnostic Imaging (Routine) Referred By Contact Referred To Contact Status Reason Specialty Diagnoses / Procedures Brooke Polanco MD [address] [facility] [address] [place] [address] Closed Diagnoses Essential hypertension P rocedures Electrocardiogram (ECG) Reason for Visit * Reason Comments Hypertension Encounter Details Care Team Description Date Type Department Brooke Polanco MD [address] [facility] [facility] [address] [place] [address] [phone] Essential hypertension (Primary Dx); Type 2 diabetes mellitus with hyperglycemia, 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); Mixed hyperlipidemia; Chronic obstructive pulmonary disease, unspecified COPD type (HCC) 01/13/2019 Office Visit [facility] [address] [facility] [address] [place], [place] [id number] Social History Date Tobacco Use Types Packs/Day [...] Signs Reading Time Taken Comments Vital Sign 111/93 01/13/2019 12:06 PM CDT Blood Pressure 80 01/13/2019 12:04 PM CDT Pulse - - Temperature - - Respiratory Rate - - Oxygen Saturation - - Inhaled Oxygen Concentration 98 kg (216 lb) 01/13/2019 12:04 PM CDT Weight 157.5 cm (5' 2") 01/13/2019 12:04 PM CDT Height 39.51 01/13/2019 12:04 PM CDT Body Mass Index documented in this encounter Patient Instructions * Patient Instructions* Delphine Medina RN - 01/13/2019 12:25 PM CDT Medication Instructions: 1. STOP taking Simvastatin (Zocor) 20 mg nightly. 2. START taking Atorvastatin (Lipitor) 40 mg daily. This is a cholesterol medication. This is a replacement cholesterol medication for Simvastatin (Zocor). Additional Instructions: 1. You may proceed with bariatric surgery without further cardiac testing. Follow up with Dr. Brooke Polanco in one (1) year (December 2019). Our schedulers will contact you closer to this time to set-up this appointmen t. Please bring an accurate medication list and/or your pill bottles and allergy list with you to future appointments. To get quicker access to your healthcare, please sign up for the [facility] Po rtal at [email or web address] -- you can email your doctors, check results, make ap pointments, pay your medical office bill, and request refills. Enter activation code on your visit summary given at end of your visit or by Clicking Sign Up Now tab and requesting activation code. Please call the Nurse Line at [phone] ([facility] Team). with any questions or concerns. For medication refill needs, please first contact your pharmacy. For any [facility] scheduling questions, please rosalind l . At [facility], high quality patient care is our top priority. To ensure our cardiovascular standards are continuously met, you may receive a survey via [place] or text message, and we ask that you please take the time to fill it out. We strive to ensure you are very satisfied with every visit. Thank you in advance for taking the time to fill this out. It was a pleasure to meet you. ADAM Akers documented in this encounter Progress Notes * Brooke Polanco MD - 01/13/2019 12:25 PM CDT [facility] [place] Appointment Date: 01/13/2019 Ebony Sharp MD [address] [facility] [address] [facility] [place] [address] RE: Isiah Benítez : 1950 Visit provider: Brooke Polanco MD Dear Ebony Sharp MD, I had the pleasure of seeing Isiah Benítez in the office today. She is a(n) 68 y.o . female and presents with the following chief complaint(s): Hypertension HPI: Ms. Benítez presents to the office for preoperative cardiovascular evaluation prio r to bariatric surgery. She has no prior history of cardiovascular disease. Sh chirag does have risk factors including hypertension, dyslipidemia, diabetes, and obe sity. She states that she is able to walk 1 block or up 2 flights of stairs wit hout stopping. She says that she cooks and takes care of her cats and walks db und in the store. She did have a stress MPI SPECT in 2016 that was nonischemic with no evidence of ischemia or infarct and the normal coronary calcium score of 0. She reports no change in her exertional tolerance or in her symptoms since that stress test. Patient Active Problem List Diagnosis SNOMED CT(R) COPD (chronic obstructive pulmonary disease) (HCC) CHRONIC OBSTRUCTIVE LUNG DISEASE Mixed hyperlipidemia MIXED HYPERLIPIDEMIA Chronic pain CHRONIC PAIN Elevated MCV MCV - RAISED MATA (generalized anxiety disorder) GENERALIZED ANXIETY DISORDER Hair loss LOSS OF HAIR Iron deficiency IRON DEFICIENCY Goldberg-Ekbom syndrome RESTLESS LEGS Parasomnia PARASOMNIA Type 2 diabetes mellitus with hyperglycemia, with long-term current use of i nsulin (HCC) TYPE 2 DIABETES MELLITUS Essential hypertension ESSENTIAL HYPERTENSION SASHA on CPAP OBSTRUCTIVE SLEEP APNEA SYNDROME Morbid obesity due to excess calories (HCC) MORBID OBESITY Post-op pain POSTOPERATIVE PAIN COPD exacerbation (HCC) ACUTE EXACERBATION OF CHRONIC OBSTRUCTIVE AIRWAYS DI SEASE Renal calculus KIDNEY STONE Closed left ankle fracture CLOSED FRACTURE OF LEFT ANKLE Influenza A INFLUENZA DUE TO INFLUENZA A VIRUS Diabetes mellitus, type II (HCC) TYPE 2 DIABETES MELLITUS Sweating increase EXCESSIVE SWEATING Bilateral hand pain PAIN OF BILATERAL HANDS Past Medical History: Diagnosis Date Acute bleeding 08/08/2016 Allergic rhinitis Anxiety Bronchitis, chronic ([facility]) Cataract 2011, 2012 bilat cataract surgery Chronic pain disorder back, ribs, and ankle. COPD (chronic obstructive pulmonary disease) ([facility]) Depression Draining postoperative wound 08/08/2016 Endometriosis Essential hypertension Fractures [address] in Left ankle MATA (generalized anxiety disorder) 09/24/2015 Hernia of abdominal cavity Mixed hyperlipidemia 09/24/2015 Morbid obesity due to excess calories ([facility]) 07/10/2016 On home oxygen therapy 2L - usually needs if has an exacerbation of COPD, or resp illness SASHA on CPAP Osteoarthritis Sleep apnea uses CPAP Type 2 diabetes mellitus with hyperglycemia, with long-term current use of i nsulin ([facility]) 06/29/2016 Urinary calculi Urinary tract infection [...] ANKLE ARTHRODESIS; Surgeon: Adelaida Olivas MD; Location: [facility] [place]; Service: Orthopedics; Later ality: Left; REPAIR, INCISIONAL HERNIA, LAPAROSCOPIC, USING MESH N/A 05/25/2018 Procedure: LAPAROSCOPIC INCISIONAL HERNIA REPAIR WITH MESH; Surgeon: Medardo Tate MD; Location: [facility]; Service: General; Laterality: N/A; TONSILLECTOMY TOTAL KNEE ARTHROPLASTY Left 2009 TOTAL KNEE ARTHROPLASTY Right 2010 Final Medications: Current Outpatient Prescriptions Medication Sig Dispense Refill [...] y. Take one daily. 180 tablet 1 BREO ELLIPTA 200-25 mcg/dose INHALER INHALE 1 PUFF BY MOUTH DAILY 60 each 2 citalopram (CELEXA) 20 mg tablet TAKE 1 TABLET(20 MG) BY MOUTH DAILY 90 tabl et 1 docusate sodium (COLACE) 100 MG capsule [...] for the first week) 180 tablet 1 atorvastatin (LIPITOR) 40 MG tablet Take 1 tablet (40 mg total) by mouth jcarlos ly. 30 tablet 11 cyclobenzaprine (FLEXERIL) 10 MG tablet Take 1 tablet (10 mg total) by mouth 3 (three) times a day as needed for muscle spasms. 30 tablet 0 meloxicam (MOBIC) 7.5 MG tablet TAKE 1 TABLET(7.5 MG) BY MOUTH DAILY 90 tabl et 1 nitrofurantoin, macrocrystal-monohydrate, (MACROBID) 100 MG capsule Take 1 c apsule (100 mg total) by mouth 2 (two) times a day. 20 capsule 0 traMADol (ULTRAM) 50 mg tablet Take 1 tablet (50 mg total) by mouth every 8 (eight) hours as needed for pain. Max Daily Dose: 150 mg 25 tablet 0 No current facility-administered medications for this visit. Allergies Allergen Reactions Lisinopril Anaphylaxis Metformin Anaphylaxis Latex, Natural Rubber Sulfa (Sulfonamide Antibiotics) Hives Family History Problem Relation Age of Onset Cancer Mother Stroke Mother Cancer Father Stroke Father Cirrhosis Father Alcohol abuse Sister Hypertension Sister Other Sister back problems COPD Brother Alzheimer's disease Sister Diabetes Sister Hypertension Sister Stroke Sister Stroke Sister Stroke Brother Heart attack Brother Stroke Brother Heart attack Brother Stroke Brother Heart attack Brother Social History: Social History Substance Use Topics Smoking status: Former Smoker Packs/day: 0.33 Years: 20.00 Types: Cigarettes Start date: 1990 Quit date: 04/2011 Smokeless tobacco: Never Used Comment: quit 7 years ago Alcohol use Yes Comment: 0-1 a month Review of Systems Constitution: Positive for malaise/fatigue. Negative for fever and night sweats. HENT: Negative for nosebleeds. Cardiovascular: Positive for dyspnea on exertion. Negative for chest pain, niraj ication, cyanosis, irregular heartbeat, leg swelling, near-syncope, orthopnea, p alpitations, paroxysmal nocturnal dyspnea and syncope. Respiratory: Positive for cough and snoring. Negative for hemoptysis, shortness of breath, sleep disturbances due to breathing and wheezing. Endocrine: Negative for cold intolerance and polydipsia. Hematologic/Lymphatic: Does not bruise/bleed easily. Skin: Negative for rash. Musculoskeletal: Positive for myalgias. Negative for arthritis and joint pain. Gastrointestinal: Negative for dysphagia, hematochezia, nausea and vomiting. Genitourinary: Negative for hematuria. Neurological: Positive for excessive daytime sleepiness and dizziness. Negative for brief paralysis, disturbances in coordination, focal weakness, light-headedn ess, loss of balance, numbness and paresthesias. All other systems reviewed and are negative. Vital Signs 01/13/19 1204 01/13/19 1205 01/13/19 1206 BP: (!) 129/103 (!) 120/95 (!) 111/93 Pulse: 80 Weight: 98 kg (216 lb) Height: 1.575 m (5' 2") BMI: Body mass index is 39.51 kg/m. Physical Exam General: well-appearing, no acute distress Eyes: EOMI HENT: normocephalic, normal hearing, moist oral mucosa Neck: supple, non-tender, no carotid bruits, no jugular venous distention Lungs: lungs clear to auscultation, non-labored respirations, breath sounds equa l, symmetrical expansion Heart: normal rate, regular rhythm, no murmur, no gallop, 2+ pulses in bilateral upper extremities and lower extremities Abdomen: soft, non-tender, non-distended Extremities: no swelling, no deformity Skin: warm, no rashes Neurologic: alert and oriented Psychiatric: cooperative, normal affect Cholesterol (mg/dL) Date Value 04/07/2018 244 (H) 04/08/2017 193 07/23/2016 200 HDL Cholesterol (mg/dL) Date Value 04/07/2018 59 04/08/2017 54 07/23/2016 49 Triglycerides (mg/dL) Date Value 04/07/2018 142 04/08/2017 182 (H) 07/23/2016 208 (H) LDL Cholesterol Date/Time Value Ref Range Status 04/07/2018 03:03 PM 157 (H) 0 - 99 mg/dL Final 04/08/2017 12:49 PM 103 (H) 0 - 99 mg/dL Final 07/23/2016 04:28 PM 109 (H) 0 - 99 mg/dL Final EKG: Normal Sinus Rhythm Encounter Diagnoses Name Primary? Essential hypertension Yes Type 2 diabetes mellitus with hyperglycemia, with long-term current use of i nsulin ([facility]) Mixed hyperlipidemia Chronic obstructive pulmonary disease, unspecified COPD type ([facility]) Impression and Plan: 1. Preoperative cardiovascular evaluation. She would be estimated to be low ri sk for major adverse cardiac events perioperatively. By the Julien risk estimato r, she would be less than 1% risk for major adverse cardiac events perioperative ly. Her functional capacity appears to be equal to 4 METS. She can walk up 2 f lights of stairs or approximately 1 block. She is able to do normal daily activ ities such as cooking, cleaning, and she walks in the store and does activities around the house. At this level of risk in functional capacity, no further card iac testing or intervention is required prior to proceeding with surgery. She a lso had a stress test approximately in 2015 that was nonischemic with no evidenc e of ischemia or infarct and also a coronary calcium score of 0. She should co ntinue her statin throughout the perioperative period along with her beta-blocke r as well as that may reduce risk of major adverse cardiovascular events periope ratively. 2. Dyslipidemia. At her level of risk for ASCVD events over the next 10 years it is recommended that she change to moderate to high intensity statin therapy. Thus, we will change her simvastatin to atorvastatin 40 mg daily. 3. Benign essential hypertension. We will continue her amlodipine, metoprolol, and spironolactone. 4. Diabetes mellitus type 2. I recommend consideration of an SGLT2 inhibitor. Return to clinic to see me in 1 year. If her symptoms persist or worsen, could consider reassessing whether she needs a repeat ischemic evaluation at that time , but she does not need that now. Treatment goals, progress and next steps, as above, were discussed and mutually agreed upon with the patient/family. Thank you for allowing me to participate in Isiah Benítez's care. If I can be of any further assistance, please do not hesitate to contact me. Sincerely, Brooke Polanco MD /ponce documented in this encounter Plan of Treatment Care Team Description Date [place] [address] [place] [id number] [phone] 02/29/2020 Office Visit Urology documented as of this encounter Procedures Comments Procedure Name Priority Date/Time Associated Diag nosis ECG Routine 01/13/2019 Essential hyper tension 11:50 AM CDT documented in this encounter Results * Electrocardiogram (ECG) (01/13/2019 11:50 AM CDT) QRSd 102 [facility] QT 380 [facility] QTC 439 [facility] ECGHR 80 [facility] ECGPR 156 [facility] Specimen Narrative Performed At [facility] [place] Test Date: 2019-01-13 Pat Name: ISIAH BENÍTEZ Department: [facility] Room: Gender: Female Orthopedics Nurse: BRISEYDA : 1950 Requested By: BROOKE POLANCO Order Number: [id number] Reading MD: Brooke Polanco Measurements Intervals Lagrange Rate: 80 P: 57 [place]: 156 QRS: 55 QRSD: 102 T: 69 QT: 380 QTc: 439 Interpretive Statements SINUS RHYTHM Electronically Signed On 01-13-2019 17:0 0:24 CDT by Brooke Polanco Procedure Note Interface, External Ris In - 01/13/2019 5:01 PM CDT [facility] [place] Test Date: 2019-01-13 Pat Name: ISIAH BENÍTEZ [facility]: Gender: Female Orthopedics Nurse: BRISEYDA : 1950 Requested By: BROOKE POLANCO Order Number: [id number] Reading MD: Brooke Polanco Measurements Intervals [place]range Rate: 80 P: 57 [place]: 156 QRS: 55 QRSD: 102 T: 69 QT: 380 QTc: 439 Interpretive Statements SINUS RHYTHM Electronically Signed On 01-13-2019 17:00:24 CDT by Brooke Polanco Performing Organization Address City/State/Zipcode Ph one Number [facility] documented in this encounter Visit Diagnoses Diagnosis Essential hypertension Unspecified essential hypertension Type 2 diabetes mellitus with hyperglyc emia, 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) Mixed hyperlipidemia Chronic obstructive pulmonary disease, unspecified COPD type (HCC) documented in this encounter
--- OUTSIDE RECORDS SUMMARY | 2019-11-28 22:21 | XMS REPORT | Encounter Summary ---
Author Author [facility] Organization [facility] Address Unknown Phone Unavailable Care Team Providers Care Molding Utility Worker Name Role Phone Ebony Sharp MD PCP Encounter Details Care Team Description Date Type Department GiovanniMacy 02/15/2019 Education [facility] [address] [place] [address] Social History Date Tobacco Use Types Packs/Day [...] Signs Reading Time Taken Comments Vital Sign - - Blood Pressure - - Pulse - - Temperature - - Respiratory Rate - - Oxygen Saturation - - Inhaled Oxygen Concentration 102.3 kg (225 lb 8 oz) 02/15/2019 1:18 PM CDT Weight - - Height 41.24 01/13/2019 2:11 PM CDT Body Mass Index documented in this encounter Progress Notes * Macy Davila - 02/15/2019 1:30 PM CDT Pt is here for a weigh in visit. Pt repots she has been doing well and walks a h lita hour everyday. Pt reports she plans on joining [employer] with her son in law and daughter. Pt plans to use their pool and ST equipment 2x/week. Ep told pt to focus on legs, chest, and back doing 6-8 exercises 2x15. Ep told pt exercise should be done at a moderate intensity RPE of 11-14. Pt verbalized understand and had no further q uestions. * Francoise Coelho RD - 02/15/2019 1:30 PM CDT 3 month medically supervised weight loss program Reviewed post-op diet guidelines for sleeve gastrectomy surgery. Excessive energy intake r/t food and nutrition-related knowledge deficit as evid enced by BMI of 41.24kg/m2. Pt was here for a WEIGH-IN. Reviewed progress on all post-op diet guidelines with patient. Reinforced guidelines in progress with patient. Goals: Pt reports she has been doing better chewing her foods up thoroughly. Pt will co franky to work on this goal for next month. Pt's goal for next class is to limit dining out to 2 times/week and to cook more at home. Pt reports when she doesn't feel like cooking, she has her kids order out, but she typically has food at home so she needs to stop doing this. documented in this encounter Plan of Treatment Care Team Description Date [place] [address] [place] [address] [phone] 02/29/2020 Office Visit Urology documented as of this encounter Visit Diagnoses Not on filedocumented in this encounter
--- OUTSIDE RECORDS SUMMARY | 2019-11-28 22:21 | XMS REPORT | Encounter Summary ---
Author Author [facility] Organization [facility] Address Unknown Phone Unavailable Care Team Providers Care Plate Cleaner Name Role Phone Ebony Sharp MD PCP Reason for Visit * Reason Comments Post Op Exam Encounter Details Care Team Description Date Type Department Sharona Ruvalcaba, KADEN [address] [facility] [address] [place], [place] [id number] S/P carpal tunnel release (Primary Dx) 03/23/2019 Office Visit [facility] [address] [facility] [address] [place], [place] [id number] Social History Date Tobacco Use Types Packs/Day [...] Signs Reading Time Taken Comments Vital Sign 156/91 03/23/2019 12:17 PM CDT Blood Pressure 78 03/23/2019 12:17 PM CDT Pulse 36.3 C (97.4 F) 03/23/2019 12:17 PM CDT Temperature - - Respiratory Rate - - Oxygen Saturation - - Inhaled Oxygen Concentration 97.5 kg (215 lb) 03/23/2019 12:17 PM CDT Weight 157.5 cm (5' 2") 03/23/2019 12:17 PM CDT Height 39.32 03/23/2019 12:17 PM CDT Body Mass Index documented in this encounter Progress Notes * Sharona Ruvalcaba, KADEN - 03/23/2019 12:00 PM CDT [facility] [address] [facility] [address] [place] [address] Caren Patten 68 y.o. female : 1950 03/23/2019 Office Visit: Provider: Location of care: [facility] Chief Complaint Chief Complaint Patient presents with Left Hand - Post Op Exam History of Present Illness Patient is a 68yo female presenting for a post op follow up on a left carpal eber antonietta release on 03/09/19. Patient notes she is still having pain in her hand. Sh e has no numbness or tingling. She denies any problems. General Comments - FH: Past Medical History Past Medical History: Diagnosis Date Acute bleeding 08/08/2016 Allergic rhinitis Anxiety Bronchitis, chronic ([facility]) Cataract 2011, 2012 bilat cateract surgery Chronic pain disorder back, ribs, and ankle. COPD (chronic obstructive pulmonary disease) ([facility]) Depression Draining postoperative wound 08/08/2016 Endometriosis Essential hypertension Fractures [address] in Left ankle MATA (generalized anxiety disorder) 09/24/2015 Hernia of abdominal cavity Mixed hyperlipidemia 09/24/2015 Morbid obesity due to excess calories ([facility]) 07/10/2016 On home oxygen therapy 2L - usually needs if has an exerbation of COPD, or resp illness SASHA on CPAP Osteoarthritis Sleep apnea uses CPAP Type 2 diabetes mellitus with hyperglycemia, with long-term current use of i nsulin ([facility]) 06/29/2016 Urinary calculi Urinary tract infection 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 Surgical History Past Surgical History: Procedure Laterality Date ANKLE FRACTURE SURGERY Left 1998 fx in 3 places and w/screws in place APPENDECTOMY CATARACT EXTRACTION W/ INTRAOCULAR LENS IMPLANT Bilateral SECTION, CLASSIC CHOLECYSTECTOMY COLONOSCOPY HAND SURGERY Left 03/09/2019 CTR HYSTERECTOMY OOPHORECTOMY REMOVAL, HARDWARE, FOOT OR ANKLE Left 04/09/2017 Procedure: LEFT ANKLE REMOVAL OF HARDWARE WITH REVISION LEFT ANKLE ARTHRODESIS; Surgeon: Adelaida Olivas MD; Location: [facility] Main OR; Service: Orthopedics; Later ality: Left; REPAIR, INCISIONAL HERNIA, LAPAROSCOPIC, USING MESH N/A 05/25/2018 Procedure: LAPAROSCOPIC INCISIONAL HERNIA REPAIR WITH MESH; Surgeon: Medardo Tate MD; Location: [facility] Main OR; Service: General; Laterality: N/A; TONSILLECTOMY TOTAL KNEE ARTHROPLASTY Left 2010 TOTAL KNEE ARTHROPLASTY Right 2010 Current Outpatient Medications Medication Sig Dispense Refill [...] BY MOUTH DAILY 90 tabl et 1 gabapentin (NEURONTIN) 300 MG capsule TAKE 2 [...] current facility-administered medications for this visit. Allergies Allergies Allergen Reactions Lisinopril Anaphylaxis Metformin Anaphylaxis Latex, Natural Rubber Sulfa (Sulfonamide Antibiotics) Hives Social History Social History Socioeconomic History Marital status: Spouse [...] Last attempt to quit: 04/2011 Years since quittin.9 Smokeless tobacco: Never Used Tobacco comment: quit 7 years ago Substance and Sexual Activity Alcohol use: Yes Comment: 0-1 a month Drug use: No Sexual activity: Never Lifestyle Physical activity: Days per week: Not on file Minutes per session: Not on file Stress: Not on file Relationships Social connections: Talks on phone: Not on file Gets together: Not on file Attends episcopalian service: Not on file Active member of [...] her daughter, Frank Garcia Code status: Full Family History Summary: Family History Problem Relation Age of Onset Cancer Mother Stroke Mother Cancer Father Stroke Father Cirrhosis Father Alcohol abuse Sister Hypertension Sister Other Sister back problems COPD Brother Alzheimer's disease Sister Diabetes Sister Hypertension Sister Stroke Sister Stroke Sister Stroke Brother Heart attack Brother Stroke Brother Heart attack Brother Stroke Brother Heart attack Brother ROS Review of Systems Constitutional: Negative for fever. Cardiovascular: Negative for chest pain. Gastrointestinal: Negative for nausea and vomiting. Musculoskeletal: Positive for arthralgias (left hand pain). Neurological: Negative for numbness. Physical Exam Physical Exam Constitutional: She is oriented to person, place, and time. She appears well-dev eloped and well-nourished. No distress. HENT: Head: Normocephalic and atraumatic. Neurological: She is alert and oriented to person, place, and time. Skin: Skin is warm and dry. Psychiatric: She has a normal mood and affect. Vitals reviewed. Left Hand Exam Tenderness The patient is experiencing no tenderness. Range of Motion The patient has normal left wrist ROM. Other Erythema: absent Sensation: normal Pulse: present Comments: Surgical incision well approximated, no redness or drainage. Sutures intact No orders of the defined types were placed in this encounter. Radiology No results found. Labs Vitals: 03/23/19 1217 BP: (!) 156/91 Pulse: 78 Temp: 36.3 C (97.4 F) TempSrc: Tympanic Weight: 97.5 kg (215 lb) Height: 1.575 m (5' 2") Impression 2 weeks out left carpal tunnel release Plan We will remove sutures today. Patient may use her hand as tolerated. I advised h er to take ibuprofen if she is having pain. If she continues to have pain she wi ll follow up with Dr. Funez in 4 weeks. She understands and agrees to this roldan n. Return in about 4 weeks (around 04/20/2019), or if symptoms worsen or fail to imp rove, for Recheck. * This record may include dictation using [employer] software. It may conta in inherent spelling and/or dictation inaccuracies due to this system. Please d o not hesitate to contact our office for clarification or questions regarding th e contents of this document. documented in this encounter Plan of Treatment Care Team Description [place] [address] [place] [address] [phone] 02/29/2020 Office Visit Urology documented as of this encounter Visit Diagnoses Diagnosis S/P carpal tunnel release Other postprocedural status documented in this encounter
--- OUTSIDE RECORDS SUMMARY | 2019-11-28 22:21 | XMS REPORT | Encounter Summary ---
Author Author [facility] Organization [facility] Address Unknown Phone Unavailable Care Team Providers Care Audio Visual Manager Name Role Phone Ebony Sharp MD PCP Encounter Details Care Team Description Date Type Department Walker Funez MD [address] [facility] [address] [place], [place] [id number] 03/13/2019 Refill [facility] [address] [facility] [address] [place], [place] [phone] Social History Date Tobacco Use Types Packs/Day [...] encounter Miscellaneous Notes * Telephone Encounter - Sydney Howard MA - 03/13/2019 3:28 PM CDT Patient advised new prescription for pain would be sent. * Telephone Encounter - Sydney Howard MA - 03/13/2019 12:35 PM CDT Received a phone call message from patient regarding her pain medication. She s tates it is not working. documented in this encounter Plan of Treatment Care Team Description [place] [address] [place] [address] [phone] 02/29/2020 Office Visit Urology documented as of this encounter Visit Diagnoses Diagnosis Acute post-operative pain documented in this encounter
--- OUTSIDE RECORDS SUMMARY | 2019-11-28 22:21 | XMS REPORT | Encounter Summary ---
Author Author [facility] Organization [facility] Address Unknown Phone Unavailable Care Team Providers Care Planning Consultant Name Role Phone Ebony Sharp MD PCP Encounter Details Care Team Description Date Type Department Walker Funez MD [address] [facility] [address] [place] [address] 01/13/2019 Telephone [facility] [address] [facility] [address] [place], [place] [id number] Social History Date Tobacco Use Types Packs/Day [...] encounter Miscellaneous Notes * Telephone Encounter - Johnna Nguyen - 01/13/2019 3:10 PM CDT DME BENEFITS: Dwight spoke to Denis with call Ref#[id number]; No prior authori zation is required for CPT code L3908. No Deductible Co-Ins 80-20% OOP Max $5900 Has met $490.00 documented in this encounter Plan of Treatment Care Team Description [place] [address] [place] [address] [phone] 02/29/2020 Office Visit Urology documented as of this encounter Visit Diagnoses Not on filedocumented in this encounter
--- OUTSIDE RECORDS SUMMARY | 2019-11-28 22:21 | XMS REPORT | Encounter Summary ---
Author Author [facility] Organization [facility] Address Unknown Phone Unavailable Care Team Providers Care Crystalizer Tender Name Role Phone Ebony Sharp MD PCP Encounter Details Care Team Description Date Type Department Walker Funez MD [address] [facility] [address] [place] [address] 01/18/2019 Telephone [facility] [address] [facility] [address] [place], [place] [phone] Social History Date Tobacco Use Types Packs/Day [...] Telephone Encounter - Sydney Howard MA - 01/18/2019 1:34 PM CDT Patient advised of prescriptions sent. * Telephone Encounter - Sydney Howard MA - 01/18/2019 12:[address] Funez Can try muscle relaxer and meloxicam if she would like * Telephone Encounter - Sydney Howard MA - 01/18/2019 12:27 PM CDT Received a phone call message from patient regarding the Tramadol is not working and is requesting something stronger. documented in this encounter Plan of Treatment Care Team Description [place] [address] [place] [address] [phone] 02/29/2020 Office Visit Urology documented as of this encounter Visit Diagnoses Not on filedocumented in this encounter
--- OUTSIDE RECORDS SUMMARY | 2019-11-28 22:21 | XMS REPORT | Encounter Summary ---
Author Author [facility] Organization [facility] Address Unknown Phone Unavailable Care Team Providers Care Senior Actuarial Analyst Name Role Phone Ebony Sharp MD PCP Encounter Details Care Team Description Date Type Department Ebony Sharp MD [address] [facility] [address] [place], [place] [phone] Benign essential HTN; Sweating increase; Hyperthyroidism; Dysuria; Type 2 diabetes mellitus with hyperosmolarity without coma, without long-term current use of insulin (HCC) 01/13/2019 Lab [facility] [phone] Social History Date Tobacco Use Types Packs/Day [...] Notes * Ebony Sharp MD - 01/13/2019 12:55 PM CDT Needs to see endocrinology NAIN for several reasons. 1. Grossly uncontrolled diabetes 2. Hyper thyroid 3. Hypercalcemia She also has UTI, so please send macrobid 100 bid x 10. Her potassium is high, so decrease potassium in diet. NAIN endo assistance please! Reiterate to patient importance of this as she C ANNOT miss endo appt. documented in this encounter Plan of Treatment Care Team Description Date [place] [address] [place] [address] [phone] 02/29/2020 Office Visit Urology documented as of this encounter Procedures Comments Procedure Name Priority Date/Time Associated Diag nosis URINALYSIS REFLEX Routine 01/13/2019 Dysuria 12:55 PM CDT THYROID STIMULATING Routine 01/13/2019 Sweating i ncrease HORMONE 12:55 PM CDT Hyperthyroidism T4 FREE Routine 01/13/2019 Sweating increa se 12:55 PM CDT Hyperthyroidism HEMOGLOBIN A1C Routine 01/13/2019 Type 2 diabetes mellitus 12:55 PM CDT with hyperosmolarity without coma, without long-term current use of insulin (HCC) COMPREHENSIVE METABOLIC Routine 01/13/2019 Benign essential HTN PANEL 12:55 PM CDT CBC AND DIFF (MANUAL DIFF Routine 01/13/2019 Jhonatan gn essential HTN IF NECESSARY) 12:55 PM CDT Sweating increase documented in this encounter Results * Hemoglobin A1C (01/13/2019 12:55 PM CDT) Hemoglobin A1C 11.6 (H) 4.0 - 5.6 % [facility] Comment: REGIONAL Non-diabetic 4.0 - LABORATORIES 5.6 % Prediabetes 5.7 - 6.4 % Diabetes >= 6.5 % Specimen Blood Performing Organization Address City/State/Zipcode Ph one Number [facility] [address] [address] LABORATORIES * T4 Free (01/13/2019 12:55 PM CDT) T4 Free 1.0 0.8 - 2.2 ng/dL [facility] Specimen Blood Performing Organization Address City/State/Zipcode Ph one Number [facility] [address] [facility] [place] [address] [facility] [address] [place] [address], [place] [phone] [facility] * Urinalysis Reflex (01/13/2019 12:55 PM CDT) Appearance, Yellow [facility] Urine [facility] Glucose Urine >=1000 (A) Negative mg/dL [facility] Bilirubin Urine Small (A) Negative [facility] Ketones Urine Negative Negative mg/dL [facility] Specific 1.023 1.001 - 1.030 [facility] [place], [facility]A [facility] Hemoglobin Negative Negative [facility] Urine [facility] PH Urine 5.5 5.0 - 8.0 [facility] Protein Urine Trace (A) Negative mg/dL [facility] Qual [facility] Urobilinogen Negative Negative EU/dL [facility] Urine [facility] Nitrite Urine Negative Negative [facility] Leukocyte Negative (A) Negative [facility] Esterase [facility] Specimen Urine Performing Organization Address City/State/[facility] Ph one Number [facility] [address] [place], [place] [phone] [facility] [address] [place] [address], [facility] * Thyroid Stimulating Hormone (01/13/2019 12:55 PM CDT) Thyroid 0.07 (L) 0.47 - 4.68 uIU/mL [facility] Stimulating [facility] Hormone [facility] Specimen Blood Performing Organization Address City/[facility] Ph one Number [facility] [address] [place], [place] [phone] [facility] [address] [place] [address], [place] [phone] [facility] * Comprehensive Metabolic Panel (01/13/2019 12:55 PM CDT) [facility] Sodium 136 133 - 147 MEQ/L [facility] Potassium 5.4 (H) 3.5 - 5.3 MEQ/L [facility] Chloride 96 96 - 112 MEQ/L [facility] Carbon Dioxide 25 20 - 32 MEQ/L [facility] Anion Gap 15 5 - 17 [facility] Calcium 10.6 (H) 8.4 - 10.5 mg/dL [facility] Glucose 296 (H) 70 - 100 mg/dL [facility] Protein Total 8.3 (H) 6.0 - 8.2 g/dL [facility] Serum [facility] Albumin 4.7 3.5 - 5.0 g/dL [facility] Alkaline 91 42 - 140 IU/L [facility] Phosphatase [facility] Alanine 31 0 - 34 IU/L [facility] Aminotransferas [facility] Aspartate 31 15 - 46 IU/L [facility] Aminotransferas [facility] Bilirubin Total 0.4 0.2 - 1.3 mg/dL [facility] Blood Urea 24 7 - 26 mg/dL [facility] Nitrogen [facility] Creatinine 1.1 0.4 - 1.1 mg/dL [facility] eGFR Female AA 60 60 - 200 [facility] mL/min/1.73sq [facility] eGFR Female 50 (L) 60 - 200 [facility] Non-AA mL/min/1.73sq [facility] Specimen Blood Performing Organization Address City/State/Zipcode Ph one Number [facility] [address] [place] [place], [place] [phone] [facility] [address] [place] [address] [place] [address], [facility] * CBC and Diff (manual diff if necessary) (01/13/2019 12:55 PM CDT) WBC 12.21 (H) 4.00 - 11.00 TH/uL [facility] RBC 4.76 4.00 - 5.00 MIL/uL [facility] Hemoglobin 16.3 (H) 12.0 - 15.0 g/dL [facility] Hematocrit 47 (H) 36 - 45 % [facility] MCV 99 80 - 99 fL [facility] MCH 34 27 - 34 pg [facility] MCHC 35 32 - 36 % [facility] RDW 13.2 11.5 - 14.5 % [facility] Platelet Count 246 140 - 400 TH/uL [facility] MPV 9.9 9.4 - 12.3 fL [facility] Nucleated RBCs 0 0 - 0 /100 [facility] % Neutrophils 65 45 - 78 % [facility] %Lymphocytes 25 15 - 47 % [facility] %Monocytes 8 0 - 12 % [facility] %Eosinophils 2 0 - 7 % [facility] %Basophils 1 0 - 2 % [facility] # Granulocytes 7.91 (H) 1.7 - 6.8 TH/uL [facility] # Lymphocytes 3.02 1.0 - 3.3 TH/uL [facility] # Monocytes 0.91 (H) 0.2 - 0.9 TH/uL [facility] # Eosinophils 0.23 0.0 - 0.4 TH/uL [facility] # Basophils 0.08 0.0 - 0.1 TH/uL [facility] Specimen Blood Performing Organization Address City/State/Zipcode Ph one Number [facility] [address] [facility] [place] [address] [facility] [address] [facility] [place] [address], [facility] documented in this encounter Visit Diagnoses Diagnosis Benign essential HTN Sweating increase Generalized hyperhidrosis Hyperthyroidism Thyrotoxicosis without mention of goite r or other cause, without mention of thyrotoxic crisis or storm Dysuria Type 2 diabetes mellitus with hyperosmo larity without coma, without long-term current use of insulin (HCC) documented in this encounter
--- OUTSIDE RECORDS SUMMARY | 2019-11-28 22:21 | XMS REPORT | Encounter Summary ---
Author Author [facility] Organization [facility] Address Unknown Phone Unavailable Care Team Providers Care Automotive Service Professional Name Role Phone Ebony Sharp MD PCP Encounter Details Care Team Description Date Type Department Max Valentin MD [address] [facility] [address] [place] [address] [phone] 02/13/2019 Documentation [facility] [address] [facility] [address] [place] [address] Social History Date Tobacco Use Types Packs/Day [...] Description Date [place] [address] [place] [address] [phone] 02/29/2020 Office Visit Urology documented as of this encounter Visit Diagnoses Not on filedocumented in this encounter
--- OUTSIDE RECORDS SUMMARY | 2019-11-28 22:21 | XMS REPORT | Encounter Summary ---
Author Author [facility] Organization [facility] Address Unknown Phone Unavailable Care Team Providers Care Die Try Out Worker Stamping Name Role Phone Ebony Sharp MD PCP Reason for Visit * Reason Comments Other Encounter Details Care Team Description Date Type Department Walker Funez MD [address] [facility] [address] [place] [address] [phone] Other 01/18/2019 [facility]ill [facility] [address] [facility] [address] [place] [address] Social History Date Tobacco Use Types Packs/Day [...] Description Date [place] [address] [place] [address] [phone] 02/29/2020 Office Visit Urology documented as of this encounter Visit Diagnoses Not on filedocumented in this encounter
--- OUTSIDE RECORDS SUMMARY | 2019-11-28 22:21 | XMS REPORT | Encounter Summary ---
Author Author [facility] Organization [facility] Address Unknown Phone Unavailable Care Team Providers Care Filter Tender Jelly Name Role Phone Ebony Sharp MD PCP Encounter Details Care Team Description Date Type Department Katerina Hood RN 01/11/2019 Abstract [facility] [address] [place] [address] Social History Date Tobacco Use Types Packs/Day Years Used Quit: 09/14/2009 Former Smoker Cigarettes 0.33 20 Smokeless Tobacco: Never Used Comments: quit 7 years ago Drinks/Week oz/Week Comments Alcohol Use seldom, two to three times a year Yes Sex Assigned at Date Recorded Female Industry Job Start Date Occupation Not on file Not on file Not on file Travel End Travel History Travel Start No recent travel history available. documented as of this encounter Plan of Treatment Care Team Description Date [place] [address] [place] [address] [phone] 02/29/2020 Office Visit Urology documented as of this encounter Visit Diagnoses Not on filedocumented in this encounter
--- OUTSIDE RECORDS SUMMARY | 2019-11-28 22:21 | XMS REPORT | Encounter Summary ---
Author Author [facility] Organization [facility] Address Unknown Phone Unavailable Care Team Providers Care Command And Control Officer Name Role Phone Ebony Sharp MD PCP Reason for Referral * Surgical (Routine) Referred By Contact Referred To Contact Status Reason Specialty Diagnoses / Procedures Walker Funez MD [address] [facility] [address] [place] [address] [facility] [address] [place] [address] Closed Diagnoses Carpal tunnel syndrome, bilateral P rocedures Referral to Outside Surgery [place] WRIST ARTHROSCOP,RELEASE XVERS LIG Reason for Visit * Reason Comments Follow-up Follow-up Encounter Details Care Team Description Date Type Department Walker Funez MD [address] [facility] [address] [place], [place] [id number] Bilateral hand pain (Primary Dx); Carpal tunnel syndrome, bilateral 02/17/2019 Office Visit [facility] [address] [facility] [address] [place] [address] Social History Date Tobacco Use [...] - - Blood Pressure - - Pulse 37 C (98.6 F) 02/17/2019 12:51 PM CDT Temperature - - Respiratory Rate - - Oxygen Saturation - - Inhaled Oxygen Concentration 97.5 kg (215 lb) 02/17/2019 12:51 PM CDT Weight 157.5 cm (5' 2") 02/17/2019 12:51 PM CDT Height 39.32 02/17/2019 12:51 PM CDT Body Mass Index documented in this encounter Progress Notes * Walker Funez MD - 02/17/2019 1:15 PM CDT [facility] [address] [facility] [address] [facility] [address] Caren Patten female 1950 Chief Complaint Chief Complaint Patient presents with Left Hand - Follow-up Right Hand - Follow-up HPI Ms. Patten is a pleasant 68 y.o. -year-old female, right-handed, who comes into [facility] for follow up of bilateral hand pain, recheck post EMG. This has been bothering them for about 6 weeks. The pain starts just below her w rist and it radiates through to her fingers and up to her elbow. She reports she was opening a jar of pickles and since then she has pain in her wrist. She repo rts numbness and tinglnig to her fingers as well. Pain on the volar aspect of he r wrist. She reports decreased strength and she has been dropping items because her belt molder is weak. No real treatment other than Lidocaine cream and wrapping her wrist with an LUCIANO wrap. The left bothers her more. She has tried night braces. Complaint is that the fingertips do not feel normal and cause her some discomfor t and pain. EXAM bilateral upper extremity: Hand is neurovascularly intact in the median, radial, and ulnar nervers, AIN, PIN, and ulnar motor. Brisk capillary refill of the dig its. She is positive Tinel's over bilateral carpal tunnels negative over the cu bital tunnels. Positive Phalen's and Dante's on both hands left worse than rig ht. No real thenar atrophy is noted. No real tender areas about the hand other sainz. Radiology Old x-ray of right wrist are reviewed no real DJD. EMG Impression: 1. The findings are consistent with a moderate bilateral carpal tunnel syndrome affecting the sensory and motor components. 2. All of the other findings of the bilateral upper extremity studies were unre markable. Assessment/Plan A 68 y.o.-year-old female with bilateral hand pain and Moderate CTS bilateral Discussed treatment options. Nonoperative care as well as operative interventio n. I did go over the risk of both of these. Discussed risks and benefits of surgery. Risks include but not limited to: infec tion, bleeding, damage to surrounding structures: nerves, blood vessels, tendon/ muscle, bone, also risks non-healing of wound or repair, Re-injury or re-tear if done, continued pain, stiffness, and loss of motion. Also discussed possibility of need for further surgery. After discussing all of these, they wish to move forward with surgical intervention. Plan for Left ECTR Disposition: No Follow-up on file. New Orders: No orders of the defined types were placed in this encounter. Past Medical History Past Medical History: Diagnosis [...] [facility] 06/29/2016 Urinary calculi Urinary tract infection [...] 2009 TOTAL KNEE ARTHROPLASTY Right 2010 Risk Factors Social History Social History Marital status: Spouse [...] her daughter, Frank Garcia Code status: Full Social History Reviewed history and no changes required Allergies Allergies Allergen Reactions Lisinopril Anaphylaxis Metformin [...] Review of Systems Constitutional: Negative for fever. Eyes: Negative for blurred vision. Gastrointestinal: Negative for nausea and vomiting. Musculoskeletal: Positive for joint pain (Left/Right hand pain). Neurological: Negative for dizziness and headaches. I have reviewed and concur with the medical, social and family histories collect ed and entered on my behalf on 02/17/2019 Vital Signs Vitals: 02/17/19 1251 Temp: 37 C (98.6 F) TempSrc: Tympanic Weight: 97.5 kg (215 lb) Height: 1.575 m (5' 2") documented in this encounter Plan of Treatment Care Team Description [place] [address] [place] [address] [phone] 02/29/2020 Office Visit Urology documented as of this encounter Visit Diagnoses Diagnosis Bilateral hand pain Carpal tunnel syndrome, bilateral Carpal tunnel syndrome documented in this encounter
--- OUTSIDE RECORDS SUMMARY | 2019-11-28 22:21 | XMS REPORT | Encounter Summary ---
Author Author [facility] Organization [facility] Address Unknown Phone Unavailable Care Team Providers Care Integrated Pest Management Technician Name Role Phone Ebony Sharp MD PCP Encounter Details Care Team Description Date Type Department Walker Funez MD [address] [facility] [address] [place] [address] [phone] 02/15/2019 Orders Only [facility] [address] [facility] [address] [place], [place] [id number] Social History Date Tobacco Use Types Packs/Day [...] Description Date [place] [address] [place] [address] [phone] 02/29/2020 Office Visit Urology documented as of this encounter Visit Diagnoses Not on filedocumented in this encounter
--- OUTSIDE RECORDS SUMMARY | 2019-11-28 22:21 | XMS REPORT | Encounter Summary ---
Author Author [facility] Organization [facility] Address Unknown Phone Unavailable Care Team Providers Care Chief Deputy Sheriff Name Role Phone Ebony Sharp MD PCP Reason for Visit * Reason Comments Other Encounter Details Care Team Description Date Type Department Ebony Sharp MD [address] [facility] [address] [place] [address] [phone] Other 02/18/2019 Refill [facility] (walk-in clinic) [address] [facility] [address] [place], [place] [id number] Social History Date Tobacco Use Types Packs/Day [...] Description Date [place] [address] [place] [address] [phone] 02/29/2020 Office Visit Urology documented as of this encounter Visit Diagnoses Not on filedocumented in this encounter Additional Health Concerns Resolved Time Infection Noted Time 08/30/2019 1:09 PM CONDUCTOR SYMPHONIC ORCHESTRA Influenza - Rule Out 08/30/2019 11:32 AM CONDUCTOR SYMPHONIC ORCHESTRA 09/17/2019 8:17 AM CONDUCTOR SYMPHONIC ORCHESTRA RSV 08/31/2019 6:35 PM CONDUCTOR SYMPHONIC ORCHESTRA documented as of this encounter
--- OUTSIDE RECORDS SUMMARY | 2019-11-28 22:21 | XMS REPORT | Encounter Summary ---
Author Author [facility] Organization [facility] Address Unknown Phone Unavailable Care Team Providers Care Well Logger Name Role Phone Ebony Sharp MD PCP Reason for Referral * Consultation (Routine) Referred By Contact Referred To Contact Status Reason Specialty Diagnoses / Procedures Medardo Tate MD [address] [address] [facility] [address] [place] [address] Closed Specialty Services Pulmonary Diagnoses Required Disease Sleep apnea, unspecified type Preoperative clearance Encounter Details Care Team Description Date Type Department Medardo Tate MD [address] [place] [address] [phone] Sleep apnea, unspecified type (Primary D x); Preoperative clearance 12/30/2018 Orders Only [facility] [address] [place] [id number] Social History Date Tobacco Use Types Packs/Day [...] Description Date [place] [address] [place] [address] [phone] 02/29/2020 Office Visit Urology Order Schedule Name Type Priority Associated Diag noses Expected: 01/13/2019, Expires: 9 Ambulatory referral to Outpatient Routine Sleep a pnea, unspecified Pulmonology Referral type Preoperative clearance documented as of this encounter Visit Diagnoses Diagnosis Sleep apnea, unspecified type Preoperative clearance Unspecified pre-operative examination documented in this encounter
--- OUTSIDE RECORDS SUMMARY | 2019-11-28 22:21 | XMS REPORT | Encounter Summary ---
Author Author [facility] Organization [facility] Address Unknown Phone Unavailable Care Team Providers Care Philosophy Lecturer Name Role Phone Ebony Sharp MD PCP Reason for Visit * Reason Comments Medication Refill Encounter Details Care Team Description Date Type Department Walker Funez MD [address] [facility] [address] [place] [address] [phone] Medication Refill 02/15/2019 Refill [facility] [address] [facility] [address] [place], [place] [address] Social History Date Tobacco Use Types Packs/Day [...] Description Date [place] [address] [place] [address] [phone] 02/29/2020 Office Visit Urology documented as of this encounter Visit Diagnoses Diagnosis Bilateral hand pain documented in this encounter
--- OUTSIDE RECORDS SUMMARY | 2019-11-28 22:21 | XMS REPORT | Encounter Summary ---
Author Author [facility] Organization [facility] Address Unknown Phone Unavailable Care Team Providers Care Call Center Support Consultant Name Role Phone Ebony Sharp MD PCP Reason for Visit * Reason Comments Other Encounter Details Care Team Description Date Type Department Ebony Sharp MD [address] [facility] [address] [place] [address] [phone] Other 03/13/2019 Refill [facility] (walk-in clinic) [address] [facility] [address] [place], [place] [id number] Social History Date Tobacco Use Types Packs/Day [...] Description Date [place] [address] [place] [address] [phone] 02/29/2020 Office Visit Urology documented as of this encounter Visit Diagnoses Not on filedocumented in this encounter
--- OUTSIDE RECORDS SUMMARY | 2019-11-28 22:21 | XMS REPORT | Encounter Summary ---
Author Author [facility] Organization [facility] Address Unknown Phone Unavailable Care Team Providers Care Planner Internship Name Role Phone Ebony Sharp MD PCP Reason for Visit * Reason Comments Medication Refill Encounter Details Care Team Description Date Type Department Ebony Sharp MD [address] [facility] [address] [place] [address] [phone] Medication Refill 03/10/2019 Refill [facility] (walk-in clinic) [address] [facility] [address] [place], [place] [id number] Social History Date Tobacco Use Types Packs/Day [...] encounter Miscellaneous Notes * Telephone Encounter - Marleny Muller MA - 03/13/2019 1:45 PM CDT Refill request for breo-ellipta 200/25 mcg one puff twice daily #60 each 0 R sen t to pharmacy documented in this encounter Plan of Treatment Care Team Description Date [place] [address] [place] [address] [phone] 02/29/2020 Office Visit Urology documented as of this encounter Visit Diagnoses Diagnosis Chronic obstructive pulmonary disease, unspecified COPD type (HCC) documented in this encounter
--- OUTSIDE RECORDS SUMMARY | 2019-11-28 22:21 | XMS REPORT | Encounter Summary ---
Author Author [facility] Organization [facility] Address Unknown Phone Unavailable Care Team Providers Care Mis Specialist Name Role Phone Ebony Sharp MD PCP Encounter Details Care Team Description Date Type Department Ebony Sharp MD [address] [facility] [address] [place] [address] [phone] 12/13/2018 Documentation [facility] (walk-in clinic) [address] [facility] [address] [place], [place] [id number] Social History Date Tobacco Use Types Packs/Day [...] Description Date [place] [address] [place] [address] [phone] 02/29/2020 Office Visit Urology documented as of this encounter Visit Diagnoses Not on filedocumented in this encounter
--- OUTSIDE RECORDS SUMMARY | 2019-11-28 22:21 | XMS REPORT | Encounter Summary ---
Author Author [facility] Organization [facility] Address Unknown Phone Unavailable Care Team Providers Care Barista Name Role Phone Ebony Sharp MD PCP Encounter Details Care Team Description Date Type Department Walker Funez MD [address] [facility] [address] [place] [address] [phone] 01/13/2019 Imaging [facility] [address] [facility] [address] [place], [place] [address] Social History Date Tobacco Use Types Packs/Day [...] Description Date [place] [address] [place] [address] [phone] 02/29/2020 Office Visit Urology Date/Time Name Type Priority Associated Diag noses 01/13/2019 2:23 PM CDT XR Wrist min 3 views Imaging Routine Right wri st pain right documented as of this encounter Visit Diagnoses Not on filedocumented in this encounter
--- OUTSIDE RECORDS SUMMARY | 2019-11-28 22:21 | XMS REPORT | Encounter Summary ---
Author Author [facility] Organization [facility] Address Unknown Phone Unavailable Care Team Providers Care Interior Design Consultant Name Role Phone Ebony Sharp MD PCP Reason for Visit * Reason Comments Pre-visit chart prep Encounter Details Care Team Description Date Type Department Ryan Roth MD [address] [place] [address] [phone] Pre-visit chart prep 12/27/2018 Documentation [facility] [address] [facility] [address] [place] [address] Social History Date Tobacco Use Types Packs/Day [...] Description Date [place] [address] [place] [address] [phone] 02/29/2020 Office Visit Urology documented as of this encounter Visit Diagnoses Not on filedocumented in this encounter
--- OUTSIDE RECORDS SUMMARY | 2019-11-28 22:21 | XMS REPORT | Encounter Summary ---
Author Author [facility] Organization [facility] Address Unknown Phone Unavailable Care Team Providers Care Land Acquisition Analyst Name Role Phone Ebony Sharp MD PCP Reason for Referral * Consultation (Routine) Referred By Contact Referred To Contact Status Reason Specialty Diagnoses / Procedures Ebony Sharp MD [address] [facility] [address] [place] [address] [facility] [address] [facility] [address] [place] [address] Closed Specialty Services Pulmonary Diagnoses Required Disease / Pre-operative Pulmonology clearance * Consultation (Routine) Referred By Contact Referred To Contact Status Reason Specialty Diagnoses / Procedures Ebony Sharp MD [address] [facility] [address] [place] [address] [facility] [address] [facility] [address] [place] [address] Closed Specialty Services Endocrinology Diagnoses Required Hemoglobin A1c greater than 9.0% Encounter Details Care Team Description Date Type Department Jennifer Feng RN 01/17/2019 Telephone [facility] (walk-in clinic) [address] [facility] [address] [place] [address] Social History Date Tobacco Use Types Packs/Day [...] Telephone Encounter - Ebony Sharp MD - 01/17/2019 2:48 PM CDT Sure. She has multiple additional specialists to see as well. * Telephone Encounter - Jennifer Feng RN - 01/17/2019 12:01 PM CDT Called pt with lab results. Pt states in order to get ready for her weight loss surgery, the surgeon is requesting she see/be cleared by pulmonary. Okay to plac e referral? Thank you. documented in this encounter Plan of Treatment Care Team Description [place] [address] [address] [phone] 02/29/2020 Office Visit Urology Order Schedule Name Type Priority Associated Diag noses 1 Occurrences starting 01/17/2019 until 07/20/2019 Ambulatory referral to Outpatient Routine Hemoglo bin A1c greater Endocrinology Referral than 9.0% 1 Occurrences starting 01/17/2019 until 07/20/2019 Ambulatory referral to Outpatient Routine Pre-ope rative clearance Pulmonology Referral documented as of this encounter Visit Diagnoses Diagnosis Hemoglobin A1c greater than 9.0% Pre-operative clearance Unspecified pre-operative examination documented in this encounter
--- OUTSIDE RECORDS SUMMARY | 2019-11-28 22:21 | XMS REPORT | Encounter Summary ---
Author Author [facility] Organization [facility] Address Unknown Phone Unavailable Care Team Providers Care Brass Wind Instruments Tube Bender Name Role Phone Ebony Sharp MD PCP Encounter Details Care Team Description Date Type Department Macy Davila 12/27/2018 Education [facility] [address] [facility] [address] [place], [place] [id number] Social History Date Tobacco Use Types Packs/Day [...] Oxygen Saturation - - Inhaled Oxygen Concentration 100.4 kg (221 lb 6.4 oz) 12/27/2018 8:21 AM CDT Weight - - Height 43.24 12/12/2018 5:10 PM CDT Body Mass Index documented in this encounter Progress Notes * Macy Davila - 12/27/2018 8:30 AM CDT Pt is here for her 3/ weigh appt. Pt reports she is walking 15 mins 4x/week. Pt reports her COPD restricts her exercise sessions to 15 mins. EP educated pt on pursed lip breathing while exercising to help oxygen saturation. Ep discussed wi th pt breathing exercises, such as balloons and bubbles. to help improve lung fu nction. Ep instructed pt to carry pulse ox while exercising and to stop if oxyge n drops below 90. Pt agreed she would follow these pulmonary safety consideratio ns. Pt states she does have a pool at home and will add swimming to her AT routine. Plan: 150 min/wk. walking 4x/week for 15 mins, add in EFX 2x/week for 5 mins slo wly adding one-two mins every week. Pt plans to use total body equipment at home for RT. * Francoise Coelho, CHRIS - 12/27/2018 8:30 AM CDT 3 month medically supervised weight loss program Reviewed post-op diet guidelines for sleeve gastrectomy surgery. Excessive energy intake r/t food and nutrition-related knowledge deficit as evid enced by BMI of 43.24kg/m2. Pt was here for a WEIGH-IN. Reviewed progress on all post-op diet guidelines with patient. Reinforced guidelines in progress with patient. Goals: Pt reports she was working on decreasing carbohydrates. She states she didn't do very well on this goal because she was taking care of her daughter who just had open heart surgery. Pt reports she did fine not drinking fluids with her meals. Pt's goal for next class is to make a weekly meal plan and follow to it Pt's goal for next class is to take small bites (the size of a peanut) and chew every bite thoroughly, at least 20x/bite. documented in this encounter Plan of Treatment Care Team Description [place] [address] [place] [address] [phone] 02/29/2020 Office Visit Urology documented as of this encounter Visit Diagnoses Not on filedocumented in this encounter
--- OUTSIDE RECORDS SUMMARY | 2019-11-28 22:21 | XMS REPORT | Encounter Summary ---
Author Author [facility] Organization [facility] Address Unknown Phone Unavailable Care Team Providers Care Bank Examiner Name Role Phone Ebony Sharp MD PCP Encounter Details Care Team Description Date Type Department Walker Funez MD [address] [facility] [address] [place] [address] [phone] Bilateral hand pain 01/13/2019 Orders Only [facility] [address] [facility] [address] [place] [address] Social History Date Tobacco Use Types Packs/Day [...] Description Date [place] [address] [place] [address] [phone] 02/29/2020 Office Visit Urology documented as of this encounter Procedures Comments Procedure Name Priority Date/Time Associated Diag nosis WRIST SPLINT QUICKFIT Routine 01/13/2019 Bilatera l hand pain 3:08 PM CDT WRIST SPLINT QUICKFIT Routine 01/13/2019 Bilatera l hand pain 3:07 PM CDT documented in this encounter Visit Diagnoses Diagnosis Bilateral hand pain documented in this encounter
--- OUTSIDE RECORDS SUMMARY | 2019-11-28 22:21 | XMS REPORT | Encounter Summary ---
Author Author [facility] Organization [facility] Address Unknown Phone Unavailable Care Team Providers Care Cafeteria Assistant Name Role Phone Ebony Sharp MD PCP Reason for Visit * Reason Comments Follow-up hospital FU Encounter Details Care Team Description Date Type Department Ebony Sharp MD [address] [facility] [address] [place] [address] Benign essential HTN (Primary Dx); Hyperlipidemia, unspecified hyperlipidemia type; Type 2 diabetes mellitus with hyperosmolarity without coma, without long-term current use of insulin (HCC); Sweating increase; Vaginal itching; Hyperthyroidism; Dysuria 12/12/[address] [facility] (walk-in clinic) [address] [facility] [address] [place] [address] Social History Date Tobacco Use [...] Signs Reading Time Taken Comments Vital Sign 106/80 12/12/2018 5:10 PM CDT Blood Pressure 82 12/12/2018 5:10 PM CDT Pulse - - Temperature - - Respiratory Rate 96% 12/12/2018 5:10 PM CDT Oxygen Saturation - - Inhaled Oxygen Concentration 98.6 kg (217 lb 6.4 oz) 12/12/2018 5:10 PM CDT Weight 152.4 cm (5') 12/12/2018 5:10 PM CDT Height 42.46 12/12/2018 5:10 PM CDT Body Mass Index documented in this encounter Progress Notes * Ebony Sharp MD - 12/12/2018 4:30 PM CDT CC: Follow-up (hospital FU ) HPI : Caren Patten is a 68 y.o. female who presents with complaints of Follow-up (hospital FU ) Hospital FU Dizziness with position change Abdominal pain - she still has pain in her abdomen - she says htat she believes it is her bladder. She has some burning with urination as well. Vaginal itching recently - she admits she has been using [employer] regularly Medicare Annual Wellness: Patient Care Team: Ebony Sharp MD as PCP - General (Internal Medicine) Ebony Sharp MD as PCP - [facility] Jennifer Joaquin MA as Dielectric Press Operator The patients demographics, including age, gender, race, [...] have you experienced confusion or memory loss?: Yes Can you use the telephone?: Yes, without help Can you get to places that are out of walking distance?: Yes, without help Can you go shopping for groceries?: Yes, without help Can you prepare meals?: Yes, without help Can you do your own housework?: Yes, without help Are you able to do laundry?: No Do you take your own medications?: Yes, without help Are you able to manage your own finances?: Yes, without help Are you able to dress and undress yourself?: Yes, without help Are you able to feed yourself?: Yes, without help Are you able to use the restroom yourself?: Yes, without help Are you able to groom yourself?: Yes, without help Overall Health: Fair Frailty: Neutral Do you wear a seatbelt?: Yes Does your home have working smoke detectors?: No Have you fallen within the past 3 months?: No Do you feel unsteady when rising from sitting to standing or while walking?: Yes Do you have handrails in the bathroom?: Yes Do you have concerns regarding sexually transmitted infections?: No Do you leak urine?: Yes 1) In the last month, have you felt down, depressed, or hopeless?: 1 2) In the last month, have you felt little interest or pleasure in doing things? : 2 I am satisfied with life overall:: Yes I feel stressed regularly:: Yes I experience anger regularly:: No I feel lonely regularly:: Yes I regularly experience physical pain:: Yes I usually feel fatigued:: Yes Has your food intake declined over the past 3 months due to loss of appetite, di gestive problems, chewing or swallowing difficulties?: Yes Have you had unintentional weight loss during the past 3 months?: No Describe your current diet:: Low Sugar;Low Calorie;Low Cholesterol Do you use dental floss?: No Do you visit the dentist regularly?: No Do you wear dentures?: No How many times a day do you brush your teeth: : 1 Type of Exercise: Walking How many times per week do you exercise?: 3 How many minutes do you exercise per session?: 30 Weekly Exercise (Minutes/Week): 90 James the intensity of your exercise:: Moderate Advance Directive?: Yes ALLERGIES: Allergies Allergen Reactions Lisinopril Anaphylaxis Metformin [...] 1 TABLET BY MOUTH EVERY NIGHT AT BEDTI ME 90 tablet 1 spironolactone (ALDACTONE) 100 MG tablet Take 1 tablet (100 mg total) by tanna th 2 (two) times a day. (Please take 1 daily for the first week) 180 tablet 1 fluconazole (DIFLUCAN) 150 MG tablet Take 1 tablet (150 mg total) by mouth o nce. 1 tablet 0 oxyCODONE-acetaminophen (PERCOCET) 5-325 mg per tablet Take 1-2 tablets by m outh every 8 (eight) hours as needed for pain. Max Daily Dose: 6 tablets 24 tabl et 0 simvastatin (ZOCOR) 20 MG tablet Take 1 tablet (20 mg total) by mouth nightl y. 90 tablet 1 simvastatin (ZOCOR) 20 MG tablet TAKE 1 TABLET(20 MG) BY MOUTH EVERY NIGHT 3 0 tablet 0 No current facility-administered medications for this visit. LAB SUMMARY: Lab Results Component Value Date WBC 8.11 09/13/2018 HGB 14.1 09/13/2018 HCT 41 09/13/2018 PLT 171 09/13/2018 CHOL 244 (H) 04/07/2018 TRIG 142 04/07/2018 HDL 59 04/07/2018 ALT 45 (H) 09/13/2018 AST 46 09/13/2018 NA 138 09/13/2018 K 4.2 09/13/2018 CL 101 09/13/2018 BUN 11 09/13/2018 CO2 28 09/13/2018 TSH 0.04 (L) 09/12/2018 INR 1.0 08/29/2017 HGBA1C 11.6 (H) 09/12/2018 MICROALBUR 12.10 09/12/2018 SOCIAL HISTORY: Social History Social History Marital [...] 65+ (1 of 2 - PCV13) 2017 Zoster Vaccine# (1 of 2) 11/29/2020 (Originally 2002) Diabetes Mellitus Hemoglobin A1C 03/12/2019 Medicare Annual Wellness 04/07/2019 Lipid Screening 04/07/2019 Diabetes Mellitus Urine Microalbumin 09/12/2019 Fall Risk Assessment # 09/13/2019 Colorectal Screening via Colonoscopy 12/24/2019 Osteoporosis Screening 09/12/2023 Influenza Vaccine Completed Hepatitis C Screen Completed Td # Excluded Immunization History Administered Date(s) Administered Influenza QIV (IM) 06/18/2014, 05/09/2016, 07/09/2017 Influenza Virus Vaccine, Split Virus (Incl. Purified Surface Antigen)-retire d Code 07/06/2013 Influenza, Seasonal, Injectable 06/08/2012 Pneumococcal Polysaccharide 23-Valent 05/09/2016 Seasonal Trivalent Influenza Vaccine, Adjuvanted, Preservative Free 07/23/20 18 Review of Systems Constitutional: Positive for fatigue. Respiratory: Negative. Cardiovascular: Negative. Gastrointestinal: Negative. Endocrine: Positive for heat intolerance. Musculoskeletal: Negative. Psychiatric/Behavioral: Negative. OBJECTIVE Vitals: 12/12/18 1710 BP: 106/80 BP Location: Right arm Pulse: 82 SpO2: 96% Weight: 98.6 kg (217 lb 6.4 oz) Height: 1.524 m (5') Estimated body mass index is 42.46 kg/m as calculated from the following: Height as of this encounter: 1.524 m (5'). Weight as of this encounter: 98.6 kg (217 lb 6.4 oz). Physical Exam Constitutional: She appears well-developed [...] Diagnoses and all orders for this visit: Benign essential HTN - CBC and Diff (manual diff if necessary); Future - Comprehensive Metabolic Panel; Future Hyperlipidemia, unspecified hyperlipidemia type Type 2 diabetes mellitus with hyperosmolarity without coma, without long-term cu rrent use of insulin (HCC) - Hemoglobin A1C; Future Sweating increase - CBC and Diff (manual diff if necessary); Future - Thyroid Stimulating Hormone; Future - T4 Free; Future Vaginal itching Hyperthyroidism - Thyroid Stimulating Hormone; Future - T4 Free; Future Dysuria - Urinalysis Reflex; Future Other orders - fluconazole (DIFLUCAN) 150 MG tablet; Take 1 tablet (150 mg total) by mout h once. 1. Increased sweating - may be related to thyroid if still really overactive - will check labs. Will also get her cbc. 2. Hyperthyroid with her last labs - check the tsh, t4 3. Fatigue - check cbc to look for anemia 4. Dysuria - check UA to rule out infeciton. Ebony Sharp MD documented in this encounter Plan of Treatment Care Team Description [place] [address] [place] [address] [phone] 02/29/2020 Office Visit Urology documented as of this encounter Results * Hemoglobin A1C (01/13/2019 12:55 PM CDT) Hemoglobin A1C 11.6 (H) 4.0 - 5.6 % [facility] Comment: REGIONAL Non-diabetic 4.0 - LABORATORIES 5.6 % Prediabetes 5.7 - 6.4 % Diabetes >= 6.5 % Specimen Blood Performing Organization Address City/[facility]/Zipcode Ph one Number [facility] [address] [address] LABORATORIES * T4 Free (01/13/2019 12:55 PM CDT) T4 Free 1.0 0.8 - 2.2 ng/dL [facility] Specimen Blood Performing Organization Address City/[facility]/Zipcode Ph one Number [facility] [address] [place] [address] [facility] [address] [place] [address], [facility] * Urinalysis Reflex (01/13/2019 12:55 PM CDT) Appearance, Yellow [facility] Glucose Urine >=1000 (A) Negative mg/dL [facility] Bilirubin Urine Small (A) Negative [facility] Ketones Urine Negative Negative mg/dL [facility] Specific 1.023 1.001 - 1.030 [facility] [place], [facility]A [facility] Hemoglobin Negative Negative [facility] U[facility] PH Urine 5.5 5.0 - 8.0 [facility] Protein Urine Trace (A) Negative mg/dL [facility] Qual [facility] Urobilinogen Negative Negative EU/dL [facility]rine [facility] Nitrite Urine Negative Negative [facility] Leukocyte Negative (A) Negative [facility] Esterase [facility] Specimen Urine Performing Organization Address City/State/Zipcode Ph one Number [facility] [address] [place], [place] [id number] [facility] [address] [place] [address], [place] [phone] [facility] * Thyroid Stimulating Hormone (01/13/2019 12:55 PM CDT) Thyroid 0.07 (L) 0.47 - 4.68 uIU/mL [facility] Hormone [facility] Specimen Blood Performing Organization Address City/State[facility] Ph one Number [facility] [address] [place], [place] [phone] [facility] [address] [place] [address], [place] [phone] [facility] * Comprehensive Metabolic Panel (01/13/2019 12:55 PM CDT) Sodium 136 133 - 147 MEQ/L [facility] Potassium 5.4 (H) 3.5 - 5.3 MEQ/L [facility] Chloride 96 96 - 112 MEQ/L [facility] Carbon Dioxide 25 20 - 32 MEQ/L [facility] Anion Gap 15 5 - 17 [facility] Calcium 10.6 (H) 8.4 - 10.5 mg/dL [facility] Glucose 296 (H) 70 - 100 mg/dL [facility] Protein Total 8.3 (H) 6.0 - 8.2 g/dL [facility] Serum [facility] Albumin 4.7 3.5 - 5.0 g/dL [facility] Alkaline 91 42 - 140 IU/L [facility] Phosphatase [facility] Alanine 31 0 - 34 IU/L [facility] Aminotransferas [facility] Aspartate 31 15 - 46 IU/L [facility] Aminotransferas [facility] Bilirubin Total 0.4 0.2 - 1.3 mg/dL [facility] Blood Urea 24 7 - 26 mg/dL [facility] Nitrogen [facility] Creatinine 1.1 0.4 - 1.1 mg/dL [facility] eGFR Female AA 60 60 - 200 [facility] mL/min/1.73sq [facility] eGFR Female 50 (L) 60 - 200 [facility] Non-AA mL/min/1.73sq [facility] Specimen Blood Performing Organization Address City/State/Zipcode Ph one Number [facility] [address] [facility] [place] [id number] [facility] [address] [facility] [place] [address], [facility] * CBC and Diff (manual diff if necessary) (01/13/2019 12:55 PM CDT) [facility] Signature WBC 12.21 (H) 4.00 - 11.00 TH/uL [facility] RBC 4.76 4.00 - 5.00 MIL/uL [facility] Hemoglobin 16.3 (H) 12.0 - 15.0 g/dL [facility] Hematocrit 47 (H) 36 - 45 % [facility] MCV 99 80 - [address] [facility] MCH 34 27 - 34 pg [facility] MCHC 35 32 - 36 % [facility] RDW 13.2 11.5 - 14.5 % [facility] Platelet Count 246 140 - 400 TH/uL [facility] MPV 9.9 9.4 - 12.3 fL [facility] Nucleated RBCs 0 0 - 0 /100 [facility] % Neutrophils 65 45 - 78 % [facility] %Lymphocytes 25 15 - 47 % [facility] %Monocytes 8 0 - 12 % [facility] %Eosinophils 2 0 - 7 % [facility] %Basophils 1 0 - 2 % [facility] # Granulocytes 7.91 (H) 1.7 - 6.8 TH/uL [facility] # Lymphocytes 3.02 1.0 - 3.3 TH/uL [facility] # Monocytes 0.91 (H) 0.2 - 0.9 TH/uL [facility] # Eosinophils 0.23 0.0 - 0.4 TH/uL [facility] # Basophils 0.08 0.0 - 0.1 TH/uL [facility] [place] [facility] Specimen Blood Performing Organization Address City/State/Zipcode Ph one Number [facility] [address] [facility] [place], [place] [phone] [facility] [address] [facility] [place] [address], [facility] documented in this encounter Visit Diagnoses Diagnosis Benign essential HTN Hyperlipidemia, unspecified hyperlipide prasanna type Type 2 diabetes mellitus with hyperosmo larity without coma, without long-term current use of insulin (HCC) Sweating increase Generalized hyperhidrosis Vaginal itching Pruritus of genital organs Hyperthyroidism 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
--- OUTSIDE RECORDS SUMMARY | 2019-11-28 22:21 | XMS REPORT | Encounter Summary ---
Author Author [facility] Organization [facility] Address Unknown Phone Unavailable Care Team Providers Care Personal Finance Instructor Name Role Phone Ebony Sharp MD PCP Encounter Details Care Team Description Date Type Department [facility] 03/09/2019 External [facility] [employer] Documentation Location Social History Date Tobacco Use Types Packs/Day [...] encounter Miscellaneous Notes * Operative Note - [facility] - 03/09/2019 12:00 AM CDT [facility] [address] [place] [address] OPERATIVE NOTE PATIENT: ISIAH BENÍTEZ PHYSICIAN: Luis Funez M.D. DATE OF SERVICE: 03/09/2019 DATE OF : 1950 PREOPERATIVE DIAGNOSIS: Left carpal tunnel syndrome. POSTOPERATIVE DIAGNOSIS: Left carpal tunnel syndrome. PROCEDURE: Left endoscopic carpal tunnel release. ANESTHESIA: Local, MAC. COMPLICATIONS: None. BLOOD LOSS: Minimal. BRIEF HISTORY: Ms. Benítez is a very pleasant 68-year-old female who has been suffering with numb ness and tingling in the left hand. She revealed to have EMG-proven carpal tunn el syndrome. I did give her treatment options of nonoperative care as well as o perative intervention. I did go over the risks of surgery, risk of infection, bleeding, damage to surrounding structures, nerves, blood vessels, tendons, as well as inc omplete relief of symptoms, continued pain, numbness, tingling, stiffness, weakn ess, possible need for subsequent surgery down the road. She understood all of this and wante d to move forward with surgical intervention. PROCEDURE NOTE: The patient was identified in the preoperative holding area. The left wrist was marked with my initials. Informed consent was obtained. We went over everythi ng once again, answered all her many questions. Following this, she was taken b ack to the operating theater, placed supine with the arm table on the left. She underwent MAC anesthesia followed by IV antibiotics and standard sterile prep and drape. We used gravity exsanguination with inflation of tourniquet to 250 mmHg. At thi s point, we performed a timeout confirming the correct patient, site, and procedure. We started by infiltrating the local anesthetic and then made a small transverse incision just proximal to the primary wrist crease just ulnar to the palmaris l ongus tendon. We carefully dissected down under loupe magnification using blunt retraction radially. We made a small rent in the fascia by just dissecting with the scisso rs. We then released the fascia proximally in the forearm, which we could see u nder direct visualization. Following this, we inserted the dilator followed by trocar and cannula under the transverse carpal ligament. We feel the undersurface ridges a t this point and then we palpated this distally to the proposed portal site and made a small oblique incision at the intersection of Ayala's cardinal line and the radial border of the ring finger. We carefully dissected here after making an oblique incision until we could see the tip of the trocar and then hyperextended the wri st and exited this out the distal portal. The hand was placed in the hand holde r. Camera and rasp were inserted until we cleared all the undersurface synovium off the trans carpal ligament until we had complete visualization and had no traversing struct ures. We then started a stepwise release all under direct visualization using t he triangular knife blade. We made sure to get through the entire thickness of the ligament. Once we had a complete release, we removed all instrumentation. We then inspec lexis distally confirming the complete release and releasing any residual fascial bands and then once again did this proximally. At this point, I could easily pass an instrume nt on top of the nerve with no impingement. I then irrigated from the proximal portal with great flow out of the distal portal. The wounds were then closed wi th 5-0 nylon sutures. Xeroform, 4 x 4s, and a soft dressing were placed. All sponge and needle counts were correct. There were no noted complications. The patient was then woken from MAC anesthesia and transferred to the PACU in [facility] condition. _ Luis Funez M.D. Electronically Signed - 03/16/2019 09:07 AM CM//[id number] DT: 03/09/2019 documented in this encounter Plan of Treatment Care Team Description Date [place] [address] [place] [address] [phone] 02/29/2020 Office Visit Urology documented as of this encounter Visit Diagnoses Not on filedocumented in this encounter Additional Health Concerns Resolved Time Infection Noted Time 08/30/2019 1:09 PM [facility] Influenza - Rule Out 08/30/2019 11:32 AM [facility] 09/17/2019 8:17 AM [facility] RSV 08/31/2019 6:35 PM [facility] documented as of this encounter
--- OUTSIDE RECORDS SUMMARY | 2019-11-28 22:21 | XMS REPORT | Encounter Summary ---
Author Author [facility] Organization [facility] Address Unknown Phone Unavailable Care Team Providers Care Modeling Teacher Name Role Phone Ebony Sharp MD PCP Reason for Visit * EMG (Routine) Referred By Contact Referred To Contact Status Reason Specialty Diagnoses / Procedures Walker Funez MD [address] [facility] [address] [place] [address] Max Valentin MD [address] [facility] [address] [place] [address] Closed Physical Diagnoses Medicine and Bilateral hand Rehabilitation numbness P rocedures EMG Encounter Details Care Team Description Date Type Department Max Valentin MD [address] [facility] [address] [place] [address] [phone] Carpal tunnel syndrome, bilateral (Prima ry Dx); Bilateral hand pain; Type 2 diabetes mellitus with hyperglycemia, with long-term current use of insulin ([facility]) 02/13/2019 Office Visit [facility] [address] [facility] [address] [place] [id number] Social History Date Tobacco Use Types Packs/Day [...] as of this encounter Progress Notes * Max Valentin MD - 02/13/2019 9:00 AM CDT Please see the scanned report. Impression: 1. The findings are consistent with a moderate bilateral carpal tunnel syndrome affecting the sensory and motor components. 2. All of the other findings of the bilateral upper extremity studies were unre markable. Recommendation: 1. Follow-up with Dr. Funez. documented in this encounter Plan of Treatment Care Team Description Date [place] [address] [place] [address] [phone] 02/29/2020 Office Visit Urology documented as of [...] documented in this encounter Visit Diagnoses Diagnosis Carpal tunnel syndrome, bilateral Carpal tunnel syndrome Bilateral hand pain Type 2 diabetes mellitus with hyperglyc emia, 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) documented in this encounter
--- OUTSIDE RECORDS SUMMARY | 2019-11-28 22:21 | XMS REPORT | Encounter Summary ---
Author Author [facility] Organization [facility] Address Unknown Phone Unavailable Care Team Providers Care Blood Bank Laboratory Professional Name Role Phone Ebony Sharp MD PCP Encounter Details Care Team Description Date Type Department Macy Davila 03/21/2019 Education [facility] [address] [facility] [address] [place], [place] [id number] Social History Date Tobacco Use Types Packs/Day [...] Oxygen Saturation - - Inhaled Oxygen Concentration 101.8 kg (224 lb 6.4 oz) 03/21/2019 2:10 PM CDT Weight - - Height 41.04 02/17/2019 12:51 PM CDT Body Mass Index documented in this encounter Progress Notes * Macy Davila - 03/21/2019 1:00 PM CDT Patient was here for a LAST class: Encouraged pt to maintain 150 min/wk of exercise until surgery. Reviewed the basic direction and restrictions regarding exercise following ba riatric surgery. Explained the most restrictive period is the first 2 weeks post-operatively a nd the pt is expected to begin walking in the hospital. Encouraged pt to walk frequently throughout the day during the first 2 weeks, averaging 4-5x/day for 10-15 min. Explained to pt not to lift more than 8-10 lbs. Discussed the changes that will occur once they are 2 weeks post-op and remin ded pt we will review those changes at their post-op visit. Pt has an adequate understanding of the initial post-op expectations in regar ds to exercise. EP discussed with pt the importance of exercise on preparing the mind and bod y for surgery and rn long term care success post op GOAL: 150 min/week. Pt plans to walk for 1 hour 4x/week. Pt plans to start going to the gym with daughter to use the TM/RB and LB RT machines once/week. * Francoise Coelho RD - 03/21/2019 1:00 PM CDT 3 month medically supervised weight loss program Reviewed post-op diet guidelines for Paolo-en-y gastric bypass surgery. Excessive energy intake r/t food and nutrition-related knowledge deficit as evid enced by BMI of 41.04kg/m2. Pt was part of a LAST class covering diet advancement and all post-op dietary gu idelines. ? Discussed insurance submission and approval process . ? Instructed patient on pre-op diets. ? Discussed protein supplements, what to look for on label, where to buy and to only mix their protein shakes with water prior to surgery. ? Discussed vitamins and what to look for. ? Instructed pt on diet progression after surgery. Discussed in detail how patie nt will eat in each phase. documented in this encounter Plan of Treatment Care Team Description [place] [address] [place] [address] [phone] 02/29/2020 Office Visit Urology documented as of this encounter Visit Diagnoses Not on filedocumented in this encounter
--- OUTSIDE RECORDS SUMMARY | 2019-11-28 22:21 | XMS REPORT | Encounter Summary ---
Author Author [facility] Organization [facility] Address Unknown Phone Unavailable Care Team Providers Care Wool Dyer Name Role Phone Ebony Sharp MD PCP Reason for Visit * Reason Comments Medication Refill Encounter Details Care Team Description Date Type Department Walker Funez MD [address] [facility] [address] [place] [address] [phone] Medication Refill 03/08/[address] [facility] [address] [address] [place], [place] [id number] Social History Date Tobacco Use Types Packs/Day [...] Treatment Care Team Description [place] [address] [place] [address] [phone] 02/29/2020 Office Visit Urology documented as of this encounter Visit Diagnoses Diagnosis Acute post-operative pain Constipation due to pain medication documented in this encounter
--- OUTSIDE RECORDS SUMMARY | 2019-11-28 22:22 | XMS REPORT | Encounter Summary ---
Author Author [facility] Organization [facility] Address Unknown Phone Unavailable Care Team Providers Care Fur Coat Sewer Name Role Phone Ebony Sharp MD PCP Encounter Details Care Team Description Date Type Department Ebony Sharp MD [address] [facility] [address] [place], [place] [id number] Benign essential HTN; Type 2 diabetes mellitus with hyperglycemia, 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); Hyperthyroidism 09/12/2018 Lab [facility] Primar y Care - [facility] [place] [address] [facility] [address] [place], [place] [id number] Social History Date Tobacco Use Types Packs/Day [...] Ebony Sharp MD - 09/12/2018 3:30 PM MEDICAL OFFICE TECHNOLOGY INSTRUCTOR Let us get back on track with your diabetes! Your A1c has gone up significantly . Make sure you are taking your medication and not missing anything. I need yo u to come back and see me in 3 months to repeat labs. I would like you to hold your biotin supplements for 2-3 weeks before that visit as well as I think it mi ght be affecting her thyroid. I am concerned about you, so I absolutely need to see you in 3 months. Please make the appointment, and make sure not to miss it please. CAL OFFICE TECHNOLOGY INSTRUCTOR documented in this encounter Plan of Treatment Care Team Description Date [place] [address] [place] [address] [phone] 02/29/2020 Office Visit Urology documented as of this encounter Procedures Comments Procedure Name Priority Date/Time Associated Diag nosis MICROALBUMIN RANDOM Routine 09/12/2018 Type 2 bela betes mellitus 3:22 PM MEDICAL OFFICE TECHNOLOGY INSTRUCTOR with hyperglycemia, 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) THYROID STIMULATING Routine 09/12/2018 Hyperthyro idism HORMONE 3:22 PM MEDICAL OFFICE TECHNOLOGY INSTRUCTOR T4 FREE Routine 09/12/2018 Hyperthyroidism 3:22 PM MEDICAL OFFICE TECHNOLOGY INSTRUCTOR HEMOGLOBIN A1C Routine 09/12/2018 Type 2 diabetes mellitus 3:22 PM MEDICAL OFFICE TECHNOLOGY INSTRUCTOR with hyperglycemia, 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) COMPREHENSIVE METABOLIC Routine 09/12/2018 Benign essential HTN PANEL 3:22 PM MEDICAL OFFICE TECHNOLOGY INSTRUCTOR Type 2 diabetes pato litus with hyperglycemia, 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) documented in this encounter Results * Comprehensive Metabolic Panel (09/12/2018 3:22 PM MEDICAL OFFICE TECHNOLOGY INSTRUCTOR) Sodium 139 133 - 147 MEQ/L [facility] Potassium 4.6 3.5 - 5.3 MEQ/L [facility] Chloride 99 96 - 112 MEQ/L [facility] Carbon Dioxide 34 (H) 20 - 32 MEQ/L [facility] Anion Gap 6 5 - 17 [facility] Calcium 9.9 8.4 - 10.5 mg/dL [facility] Glucose 253 (H) 70 - 100 mg/dL [facility] Protein Total 7.3 6.0 - 8.2 g/dL [facility] Serum [facility] Albumin 4.0 3.5 - 5.0 g/dL [facility] Alkaline 102 42 - 140 IU/L [facility] Phosphatase [facility] Alanine 47 (H)Comment: ALT reference 0 - 34 IU/L [facility] Aminotransferas range changed on 03-01-2018 REG[facility]AL e LABORATORIES Aspartate 45 15 - 46 IU/L [facility] Aminotransferas [facility] e LABORATORIES Bilirubin Total 0.2 0.2 - 1.3 mg/dL [facility] Blood Urea 16 7 - 26 mg/dL [facility] Nitrogen [facility] Creatinine 0.8 0.4 - 1.1 mg/dL [facility] eGFR Female AA 86 60 - 200 [facility] Comment: REGIONAL Chronic Kidney Disease less LABORATORIES than 60 mL/min/1.73 sq.m Kidney failure less than 15 mL/min/1.73 sq.m eGFR Female 72 60 - 200 [facility] Non-AA Comment: REGIONAL Chronic Kidney Disease less LABORATORIES than 60 mL/min/1.73 sq.m Kidney failure less than 15 mL/min/1.73 sq.m Specimen Blood Performing Organization Address City/[facility] Ph one Number [address] [address] LABORATORIES * T4 Free (09/12/2018 3:22 PM MEDICAL OFFICE TECHNOLOGY INSTRUCTOR) T4 Free 1.1 0.8 - 2.2 ng/dL [facility] Specimen Blood Performing Organization Address [facility] Ph one Number [address] [address] LABORATORIES * Thyroid Stimulating Hormone (09/12/2018 3:22 PM MEDICAL OFFICE TECHNOLOGY INSTRUCTOR) Thyroid 0.04 (L) 0.47 - 4.68 uIU/mL [facility] Stimulating [facility] Hormone LABORATORIES Specimen Blood Performing Organization Address [facility] Ph one Number [address] [address] LABORATORIES * Microalbumin Random (09/12/2018 3:22 PM MEDICAL OFFICE TECHNOLOGY INSTRUCTOR) Creatinine 320.3 mg/dL [facility] Urine Random [facility] Microalbumin 12.10 mg/dL [facility] mg/dl [facility] Microalbumin/Cr 37.78 (H) 0.00 - 30.00 ug/mg [facility] eatinine Ratio [facility] Specimen Urine Performing Organization Address [facility] Ph one Number [facility] [address] [address] LABORATORIES * Hemoglobin A1C (09/12/2018 3:22 PM MEDICAL OFFICE TECHNOLOGY INSTRUCTOR) Hemoglobin A1C 11.6 (H) 4.0 - 5.6 % [facility] Comment: REGIONAL Non-diabetic 4.0 - LABORATORIES 5.6 % Prediabetes 5.7 - 6.4 % Diabetes >= 6.5 % Specimen Blood Performing Organization Address [facility] one Number [facility] [address] [address] LABORATORIES documented in this encounter Visit Diagnoses Diagnosis Benign essential HTN Type 2 diabetes mellitus with hyperglyc emia, 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) Hyperthyroidism Thyrotoxicosis without mention of goite r or other cause, without mention of thyrotoxic crisis or storm documented in this encounter
--- OUTSIDE RECORDS SUMMARY | 2019-11-28 22:22 | XMS REPORT | Encounter Summary ---
Author Author [facility] Organization [facility] Address Unknown Phone Unavailable Care Team Providers Care Chemist Instrumentation Name Role Phone Ebony Sharp MD PCP Reason for Visit * Reason Comments Other Encounter Details Care Team Description Date Type Department Adelaida Olivas MD [address] [facility] [address] [place] [address] [phone] Other 07/17/2018 Refill [facility] [address] [facility] [address] [place] [address] Social History Date Tobacco Use Types Packs/Day [...] Description Date [place] [address] [place] [address] [phone] 02/29/2020 Office Visit Urology documented as of this encounter Visit Diagnoses Not on filedocumented in this encounter Additional Health Concerns Resolved Time Infection Noted Time 08/30/2019 1:09 PM COST CLERK Influenza - Rule Out 08/30/2019 11:32 AM COST CLERK 09/17/2019 8:17 AM COST CLERK RSV 08/31/2019 6:35 PM COST CLERK documented as of this encounter
--- OUTSIDE RECORDS SUMMARY | 2019-11-28 22:22 | XMS REPORT | Encounter Summary ---
Author Author [facility] Organization [facility] Address Unknown Phone Unavailable Care Team Providers Care Dispensary Technician Name Role Phone Ebony Sharp MD PCP Reason for Visit * Diagnostic Imaging (Routine) Referred By Contact Referred To Contact Status Reason Specialty Diagnoses / Procedures Ebony Sharp MD [address] [address] [facility] Dexa [address] [place] [address] Closed Radiology Diagnoses Healthcare maintenance P rocedures DEXA Bone Density Hip Pelvis Spine Encounter Details Care Team Description Date Type Department Ebony Sharp MD [address] [phone] 09/12/2018 Imaging [facility] Primar y Care Appointment - [place] 20 [place], [place] [phone] Social History Date Tobacco Use Types Packs/Day [...] Description Date [place] [address] [place] [address] [phone] 02/29/2020 Office Visit Urology documented as of this encounter Procedures Comments Procedure Name Priority Date/Time Associated Diag nosis DEXA BONE DENSITY HIP Routine 09/12/2018 [facility] re maintenance PELVIS SPINE 3:16 PM SEARCH PLANNER documented in this encounter Results * DEXA Bone Density Hip Pelvis Spine (09/12/2018 3:16 PM SEARCH PLANNER) Specimen Narrative Performed At This result has an attachment that is n ot available. Performing Organization Address City/State/Zipcode Ph one Number [facility] documented in this encounter Visit Diagnoses Not on filedocumented in this encounter
--- OUTSIDE RECORDS SUMMARY | 2019-11-28 22:22 | XMS REPORT | Encounter Summary ---
Author Author [facility] Organization [facility] Address Unknown Phone Unavailable Care Team Providers Care Lion Tamer Name Role Phone Ebony Sharp MD PCP Encounter Details Care Team Description Date Type Department Ebony Sharp MD [address] [facility] [address] [place] [address] [phone] 09/15/2018 Documentation [facility] (walk-in clinic) [address] [facility] [address] [place], [place] [id number] Social History Date Tobacco Use Types Packs/Day [...] Description Date [place] [address] [place] [address] [phone] 02/29/2020 Office Visit Urology documented as of this encounter Visit Diagnoses Not on filedocumented in this encounter
--- OUTSIDE RECORDS SUMMARY | 2019-11-28 22:22 | XMS REPORT | Encounter Summary ---
Author Author [facility] Organization [facility] Address Unknown Phone Unavailable Care Team Providers Care Diet Tech Name Role Phone Ebony Sharp MD PCP Reason for Referral * Diagnostic Imaging (Routine) Referred By Contact Referred To Contact Status Reason Specialty Diagnoses / Procedures Ebony Sharp MD [address] [facility] [address] [place] [address] Sle Mammo [address] [facility] [place] [address] Canceled Radiology Diagnoses Healthcare maintenance P rocedures MA Mammogram screening w CAD bilat * Diagnostic Imaging (Routine) Referred By Contact Referred To Contact Status Reason Specialty Diagnoses / Procedures Ebony Sharp MD [address] [facility] [address] [place] [address] Sle Slmg Ls Dexa [address] [place] [address] Closed Radiology Diagnoses Healthcare maintenance P rocedures DEXA Bone Density Hip Pelvis Spine Reason for Visit * Reason Comments Follow-up 6 months Encounter Details Care Team Description Date Type Department Ebony Sharp MD [address] [facility] [address] [place] [address] [phone] Chronic obstructive pulmonary disease, u nspecified COPD type (HCC) (Primary Dx); Hyperlipidemia, unspecified hyperlipidemia type; Benign essential HTN; MATA (generalized anxiety disorder); Type 2 diabetes mellitus with hyperglycemia, 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); Morbid obesity due to excess calories (HCC); Healthcare maintenance; Hair loss; Acne vulgaris; Hyperthyroidism 09/12/2018 Office Visit [facility] (walk-in clinic) [address] [facility] [address] [place] [address] Social History Date Tobacco Use Types Packs/Day [...] Signs Reading Time Taken Comments Vital Sign 150/80 09/12/2018 2:14 PM FINISHING DEPARTMENT SUPERVISOR Blood Pressure 77 09/12/2018 2:14 PM FINISHING DEPARTMENT SUPERVISOR Pulse - - Temperature - - Respiratory Rate 92% 09/12/2018 2:14 PM FINISHING DEPARTMENT SUPERVISOR Oxygen Saturation - - Inhaled Oxygen Concentration 106.6 kg (235 lb) 09/12/2018 2:14 PM FINISHING DEPARTMENT SUPERVISOR Weight 156.2 cm (5' 1.5") 09/12/2018 2:14 PM FINISHING DEPARTMENT SUPERVISOR Height 43.68 09/12/2018 2:14 PM FINISHING DEPARTMENT SUPERVISOR Body Mass Index documented in this encounter Progress Notes * Ebony Sharp MD - 09/12/2018 2:30 PM FINISHING DEPARTMENT SUPERVISOR CC: Follow-up (6 months) HPI : Caren [...] Take 2 capsules (600 mg total) by mout h 3 (three) times a day. 540 capsule 1 insulin glargine (LANTUS U-100 INSULIN) 100 unit/mL injection Inject 15 Unit s under the skin nightly. 1 vial 0 [...] tablet Take 1 tablet (100 mg total) b y mouth 2 (two) times a day. 180 tablet 1 OXYGEN THERAPY 2 L/min as needed. simvastatin (ZOCOR) 20 MG tablet TAKE 1 TABLET BY MOUTH EVERY NIGHT AT BEDTI ME 14 tablet 0 cyclobenzaprine (FLEXERIL) 10 MG [...] insul in (HCC) - Hemoglobin A1C; Future - Microalbumin Random; Future - Comprehensive Metabolic Panel; Future Morbid obesity due to excess calories (HCC) Healthcare maintenance - DEXA Bone Density Hip [...] Recheck the tsh, t4. She is taking bi otin, so may need to recheck lab after she has held this if it is low. 3. HTN - high. The spironolactone should help with this. 4. Dm2 - check the a1c 5. Acne - hopefully the spironolactone helps. 6. Obesity - per Dr. Tate. I did tell the patient that I have very significa nt concerns with her frequent no shows to appointments with me and expressed to her the necessity of keeping her appointments with the bariatric clinic as I bel ieve that noncompliance would be a possible disqualifying factor. Ebony Sharp MD SHING DEPARTMENT SUPERVISOR documented in this encounter Plan of Treatment Care Team Description Date [place] [address] [place] [address] [phone] 02/29/2020 Office Visit Urology Order Schedule Name Type Priority Associated Diag noses 1 Occurrences starting 09/12/2018 until 11/08/2019 [place] Mammogram screening w Imaging Routine Healt hcare maintenance CAD bilat documented as of this encounter Procedures Comments Procedure Name Priority Date/Time Associated Diag nosis DEXA BONE DENSITY HIP Routine 09/12/2018 [facility] re maintenance PELVIS SPINE 3:16 PM FINISHING DEPARTMENT SUPERVISOR documented in this encounter Results * Comprehensive Metabolic Panel (09/12/2018 3:22 PM FINISHING DEPARTMENT SUPERVISOR) Sodium 139 133 - 147 MEQ/L [facility] Potassium 4.6 3.5 - 5.3 MEQ/L [facility] Chloride 99 96 - 112 MEQ/L [facility] Carbon Dioxide 34 (H) 20 - 32 MEQ/L [facility] Anion Gap 6 5 - 17 [facility] Calcium 9.9 8.4 - 10.5 mg/dL [facility] Glucose 253 (H) 70 - 100 mg/dL [facility] Protein Total 7.3 6.0 - 8.2 g/dL [facility] Serum [facility] Albumin 4.0 3.5 - 5.0 g/dL [facility] Alkaline 102 42 - 140 IU/L [facility] Phosphatase [facility] Alanine 47 (H)Comment: ALT reference 0 - 34 IU/L [facility] Aminotransferas range changed on 03-01-2018 [facility] e LABORATORIES Aspartate 45 15 - 46 IU/L [facility] Bilirubin Total 0.2 0.2 - 1.3 mg/dL [facility] Blood Urea 16 7 - 26 mg/dL [facility] Nitrogen [facility] Creatinine 0.8 0.4 - 1.1 mg/dL [facility] eGFR Female AA 86 60 - 200 [facility] Comment: REGIONAL Chronic Kidney Disease less LABORATORIES than 60 mL/min/1.73 sq.m Kidney failure less than 15 mL/min/1.73 sq.m eGFR Female 72 60 - 200 [facility] Non-AA Comment: REGIONAL Chronic Kidney Disease less LABORATORIES than 60 mL/min/1.73 sq.m Kidney failure less than 15 mL/min/1.73 sq.m Specimen Blood Performing Organization Address [facility] Ph one Number [address] [address] LABORATORIES * T4 Free (09/12/2018 3:22 PM FINISHING DEPARTMENT SUPERVISOR) T4 Free 1.1 0.8 - 2.2 ng/dL [facility] Specimen Blood Performing Organization Address City/[facility] Ph one Number [address] [address] LABORATORIES * Thyroid Stimulating Hormone (09/12/2018 3:22 PM FINISHING DEPARTMENT SUPERVISOR) Thyroid 0.04 (L) 0.47 - 4.68 uIU/mL [facility] REGIONAL Hormone LABORATORIES Specimen Blood Performing Organization Address [facility] Ph one Number [facility] [address] [place] [address] LABORATORIES * Microalbumin Random (09/12/2018 3:22 PM FINISHING DEPARTMENT SUPERVISOR) Creatinine 320.3 mg/dL [facility] Urine Random [facility] Microalbumin 12.10 mg/dL [facility] mg/dl [facility] Microalbumin/Cr 37.78 (H) 0.00 - 30.00 ug/mg [facility] eatinine Ratio [facility] Specimen Urine Performing Organization Address [facility] one Number [facility] [address] [place] [address] LABORATORIES * Hemoglobin A1C (09/12/2018 3:22 PM FINISHING DEPARTMENT SUPERVISOR) Hemoglobin A1C 11.6 (H) 4.0 - 5.6 % [facility] Comment: REGIONAL Non-diabetic 4.0 - LABORATORIES 5.6 % Prediabetes 5.7 - 6.4 % Diabetes >= 6.5 % Specimen Blood Performing Organization Address [facility] Ph one Number [facility] [address] [address] LABORATORIES * DEXA Bone Density Hip Pelvis Spine (09/12/2018 3:16 PM FINISHING DEPARTMENT SUPERVISOR) Specimen Narrative Performed At This result has an attachment that is n ot available. Performing Organization Address [facility] one Edgar SIMS documented in this encounter Visit Diagnoses Diagnosis Chronic obstructive pulmonary disease, unspecified COPD type (HCC) Hyperlipidemia, unspecified hyperlipide prasanna type Benign essential HTN MATA (generalized anxiety disorder) Generalized anxiety disorder Type 2 diabetes mellitus with hyperglyc emia, 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) Morbid obesity due to excess calories ( HCC) Healthcare maintenance Hair loss Unspecified alopecia Acne vulgaris Other acne Hyperthyroidism Thyrotoxicosis without mention of goite r or other cause, without mention of thyrotoxic crisis or storm documented in this encounter
--- OUTSIDE RECORDS SUMMARY | 2019-11-28 22:22 | XMS REPORT | Encounter Summary ---
Author Author [facility] Organization [facility] Address Unknown Phone Unavailable Care Team Providers Care Dramatic Critic Name Role Phone Ebony Sharp MD PCP Reason for Visit * Reason Comments Medication Refill Encounter Details Care Team Description Date Type Department Jennifer Feng RN Medication Refill 10/21/2018 Refill [facility] (walk-in clinic) [address] [facility] [address] [place] [address] Social History Date Tobacco Use Types Packs/Day [...] Description Date [place] [address] [place] [address] [phone] 02/29/2020 Office Visit Urology documented as of this encounter Visit Diagnoses Not on filedocumented in this encounter
--- OUTSIDE RECORDS SUMMARY | 2019-11-28 22:22 | XMS REPORT | Encounter Summary ---
Author Author [facility] Organization [facility] Address Unknown Phone Unavailable Care Team Providers Care Air Hoist Operator Name Role Phone Ebony Sharp MD PCP Reason for Visit * Reason Comments Other Encounter Details Care Team Description Date Type Department Ebony Sharp MD [address] [facility] [address] [place] [address] [phone] Other 07/17/2018 Refill [facility] y [facility] (walk-in clinic) [address] [facility] [address] [place], [place] [id number] Social History Date Tobacco Use Types Packs/Day [...] Description Date [place] [address] [place] [address] [phone] 02/29/2020 Office Visit Urology documented as of this encounter Visit Diagnoses Not on filedocumented in this encounter Additional Health Concerns Resolved Time Infection Noted Time 08/30/2019 1:09 PM ADULT REMEDIAL EDUCATION INSTRUCTOR Influenza - Rule Out 08/30/2019 11:32 AM ADULT REMEDIAL EDUCATION INSTRUCTOR 09/17/2019 8:17 AM ADULT REMEDIAL EDUCATION INSTRUCTOR RSV 08/31/2019 6:35 PM ADULT REMEDIAL EDUCATION INSTRUCTOR documented as of this encounter
--- OUTSIDE RECORDS SUMMARY | 2019-11-28 22:22 | XMS REPORT | Encounter Summary ---
Author Author [facility] Organization [facility] Address Unknown Phone Unavailable Care Team Providers Care Filament Welder Name Role Phone Ebony Sharp MD PCP Encounter Details Care Team Description Date Type Department Ebony Sharp MD [address] [facility] [address] [place] [address] [phone] 09/27/2018 Documentation [facility] (walk-in clinic) [address] [facility] [address] [place], [place] [id number] Social History Date Tobacco Use Types Packs/Day [...] Description Date [place] [address] [place] [address] [phone] 02/29/2020 Office Visit Urology documented as of this encounter Visit Diagnoses Not on filedocumented in this encounter
--- OUTSIDE RECORDS SUMMARY | 2019-11-28 22:22 | XMS REPORT | Encounter Summary ---
Author Author [facility] Organization [facility] Address Unknown Phone Unavailable Care Team Providers Care Vending Route Servicer Name Role Phone Ebony Sharp MD PCP Encounter Details Care Team Description Date Type Department Medardo Tate MD [address] [facility] [address] [place] [address] [phone] 11/25/2018 Documentation [facility] Specialists [address] [facility] [address] [place] [address] Social History Date Tobacco Use Types Packs/Day [...] Description Date [place] [address] [place] [address] [phone] 02/29/2020 Office Visit Urology documented as of this encounter Visit Diagnoses Not on filedocumented in this encounter
--- OUTSIDE RECORDS SUMMARY | 2019-11-28 22:22 | XMS REPORT | Encounter Summary ---
Author Author [facility] Organization [facility] Address Unknown Phone Unavailable Care Team Providers Care Bridge Game Director Name Role Phone Ebony Sharp MD PCP Reason for Visit * Reason Comments Other Encounter Details Care Team Description Date Type Department Ebony Sharp MD [address] [facility] [address] [place] [address] [phone] Other 10/21/2018 Refill [facility] y [facility] (walk-in clinic) [address] [facility] [address] [place], [place] [id number] Social History Date Tobacco Use Types Packs/Day [...] Description Date [place] [address] [place] [address] [phone] 02/29/2020 Office Visit Urology documented as of this encounter Visit Diagnoses Not on filedocumented in this encounter
--- OUTSIDE RECORDS SUMMARY | 2019-11-28 22:22 | XMS REPORT | Encounter Summary ---
Author Author [facility] Organization [facility] Address Unknown Phone Unavailable Care Team Providers Care Agronomy Research Manager Name Role Phone Ebony Sharp MD PCP Reason for Visit * Reason Comments Pre-op Exam Bypass consult Encounter Details Care Team Description Date Type Department Medardo Tate MD [address] [facility] [address] [place] [address] Morbid obesity due to excess calories (H CC) (Primary Dx); Type 2 diabetes mellitus with hyperglycemia, 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); Hyperlipidemia, unspecified hyperlipidemia type; Benign essential HTN; SASHA on CPAP 09/06/2018 Initial consult [facility] [address] [facility] [address] [place] [address] Social History Date Tobacco Use [...] Signs Reading Time Taken Comments Vital Sign 166/98 09/06/2018 1:44 PM DRY PASTE SUPERVISOR Blood Pressure 76 09/06/2018 1:44 PM DRY PASTE SUPERVISOR Pulse 36.9 C (98.4 F) 09/06/2018 1:44 PM DRY PASTE SUPERVISOR Temperature - - Respiratory Rate - - Oxygen Saturation - - Inhaled Oxygen Concentration 106.6 kg (235 lb) 09/06/2018 1:44 PM DRY PASTE SUPERVISOR Weight 156.2 cm (5' 1.5") 09/06/2018 1:44 PM DRY PASTE SUPERVISOR Height 43.68 09/06/2018 1:44 PM DRY PASTE SUPERVISOR Body Mass Index documented in this encounter Progress Notes * Medardo Tate MD - 09/06/2018 2:00 PM DRY PASTE SUPERVISOR [facility] Office Visit Patient: Caren Patten is a 68 y.o. female 1950 CSN: [id number] PCP: Ebony Sharp MD Referring physician: No ref. provider found Assessment: Body mass index is 43.68 kg/m. Weight: 106.6 kg (235 lb) Problem List Items Addressed This Visit Type 2 diabetes mellitus with hyperglycemia, with long-term current use of insu sanjay (HCC) (Chronic) Benign essential HTN (Chronic) SASHA on CPAP (Chronic) Hyperlipidemia Morbid obesity due to excess calories (HCC) - Primary Plan: Obtain medical clearance and begin multidisciplinary visits to prepare for Robot ic assisted gastric bypass. Detailed pre operative dietary counseling and initial dietary assessment was per formed today, including the following discussions: Discussed program overview (MSWL program, pre-op class, surgery and follow-up visits) Explained physiology of change & differences between the surgeries. Discussed exercise strategy and diet techniques (how to eat) Explain why we have them do these things Eating Techniques Small portions (3-4oz lean protein, cup veggies and cup healthy carbohy drates) Chew thoroughly (at least 20 times per bite) Eat slowly (taking 30 minutes to finish a meal) Establish meal pattern of 3 meals/day without snacking Exercise strategy Begin with 60 minutes per week and work up to 150 minutes per week, based on current ability and limitations Further instructions on a personalized basis with recommendations from our ex ercise control technician HPI: Caren Patten is a 68 y.o. female who is being seen in consultation for [facility] surgery. She is known to me from a recent incisional hernia repair with mesh 3 months ago. Body mass index is 43.68 kg/m. Comorbidities are listed above. T he patient has tried multiple diets, commercial and other, without meterman suc cess, and would like to be considered for Robotic assisted gastric bypass. She currently weighs the most that she has ever weighed. She has not been successf ul with significant weight loss. Past Medical History: [...] ANKLE ARTHRODESIS; Surgeon: Adelaida Olivas MD; Location: [facility] Main OR; Service: Orthopedics; Later ality: Left; REPAIR, INCISIONAL HERNIA, LAPAROSCOPIC, USING MESH N/A 05/25/2018 Procedure: LAPAROSCOPIC INCISIONAL HERNIA REPAIR WITH MESH; Surgeon: Medardo Tate MD; Location: [facility] Main OR; Service: General; Laterality: N/A; TONSILLECTOMY TOTAL KNEE ARTHROPLASTY Left 2009 TOTAL KNEE ARTHROPLASTY Right 2010 Patient Active Problem List Diagnosis COPD (chronic obstructive pulmonary disease) (HCC) Hyperlipidemia Chronic pain Elevated MCV MATA (generalized anxiety disorder) Hair loss SASHA (obstructive sleep apnea) Iron deficiency Goldberg-Ekbom syndrome Parasomnia Type 2 diabetes mellitus with hyperglycemia, with long-term current use of i nsulin (HCC) Benign essential HTN SASHA on CPAP [...] MOUTH EVERY NIGHT 3 0 tablet 0 cyclobenzaprine (FLEXERIL) 10 MG tablet [...] NIGHT AT BEDTI ME 14 tablet 0 No current facility-administered medications for this visit. Review of Systems Constitutional: Positive for malaise/fatigue. HENT: Positive for congestion. Eyes: Negative. Respiratory: Positive for cough, sputum production, shortness of breath and whee zing. Cardiovascular: Negative. Gastrointestinal: Positive for constipation. Genitourinary: [...] Soft, non-tender, non-distended, healed surgical scars from laparoscopy . No Hepatosplenomegaly. Extremities: Non-tender, no edema. Skin: Grossly normal. Neurological: Cranial nerves are grossly intact. Mood and affect is normal. Electronically signed by: Medardo Tate MD, FACS 09/06/18 PASTE SUPERVISOR documented in this encounter Plan of Treatment Care Team Description Date [place] [address] [place] [address] [phone] 02/29/2020 Office Visit Urology documented as of this encounter Visit Diagnoses Diagnosis Morbid obesity due to excess calories ( HCC) Type 2 diabetes mellitus with hyperglyc emia, 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) Hyperlipidemia, unspecified hyperlipide prasanna type Benign essential HTN SASHA on CPAP documented in this encounter
--- OUTSIDE RECORDS SUMMARY | 2019-11-28 22:22 | XMS REPORT | Encounter Summary ---
Author Author [facility] Organization [facility] Address Unknown Phone Unavailable Care Team Providers Care Learning Designer Name Role Phone Ebony Sharp MD PCP Reason for Visit * Reason Comments Other Encounter Details Care Team Description Date Type Department Ebony Sharp MD [address] [facility] [address] [place], [place] [id number] Other 06/21/2018 Refill [facility] y [facility] (walk-in clinic) [address] [facility] [address] [place], [place] [address] Social History Date Tobacco Use Types Packs/Day [...] encounter Miscellaneous Notes * Telephone Encounter - Helena Croft MA - 06/21/2018 10:57 AM CDT Last seen on 04/07/18 documented in this encounter Plan of Treatment Care Team Description [place] [address] [place] [address] [phone] 02/29/2020 Office Visit Urology documented as of this encounter Visit Diagnoses Not on filedocumented in this encounter
--- OUTSIDE RECORDS SUMMARY | 2019-11-28 22:22 | XMS REPORT | Encounter Summary ---
Author Author [facility] Organization [facility] Address Unknown Phone Unavailable Care Team Providers Care Train System Operator Name Role Phone Ebony Sharp MD PCP Reason for Visit * Reason Comments Other Encounter Details Care Team Description Date Type Department Ebony Sharp MD [address] [facility] [address] [place] [address] [phone] Other 11/15/2018 Refill [facility] (walk-in clinic) [address] [facility] [address] [place], [place] [address] Social History Date Tobacco Use Types Packs/Day [...] Description Date [place] [address] [place] [address] [phone] 02/29/2020 Office Visit Urology documented as of this encounter Visit Diagnoses Not on filedocumented in this encounter Additional Health Concerns Resolved Time Infection Noted Time 08/30/2019 1:09 PM REGIONAL MARKETING DIRECTOR Influenza - Rule Out 08/30/2019 11:32 AM REGIONAL MARKETING DIRECTOR 09/17/2019 8:17 AM REGIONAL MARKETING DIRECTOR RSV 08/31/2019 6:35 PM REGIONAL MARKETING DIRECTOR documented as of this encounter
--- OUTSIDE RECORDS SUMMARY | 2019-11-28 22:22 | XMS REPORT | Encounter Summary ---
Author Author [facility] Organization [facility] Address Unknown Phone Unavailable Care Team Providers Care Correspondence Specialist Name Role Phone Ebony Sharp MD PCP Reason for Visit * Reason Comments Medication Refill Encounter Details Care Team Description Date Type Department Jennifer Feng RN Medication Refill 11/28/2018 Refill [facility] (walk-in clinic) [address] [facility] [address] [place] [address] Social History Date Tobacco Use Types Packs/Day [...] Description Date [place] [address] [place] [address] [phone] 02/29/2020 Office Visit Urology documented as of this encounter Visit Diagnoses Not on filedocumented in this encounter
--- OUTSIDE RECORDS SUMMARY | 2019-11-28 22:22 | XMS REPORT | Encounter Summary ---
Author Author [facility] Organization [facility] Address Unknown Phone Unavailable Care Team Providers Care Patient Support Assistant Name Role Phone Ebony Sharp MD PCP Reason for Visit * Reason Comments Other Encounter Details Care Team Description Date Type Department Ebony Sharp MD [address] [facility] [address] [place] [address] [phone] Other 10/20/2018 Refill [facility] (walk-in clinic) [address] [facility] [address] [place], [place] [address] Social History Date Tobacco Use Types Packs/Day [...] Description [place] [address] [place] [address] [phone] 02/29/2020 Office Visit Urology documented as of this encounter Visit Diagnoses Not on filedocumented in this encounter
--- OUTSIDE RECORDS SUMMARY | 2019-11-28 22:22 | XMS REPORT | Encounter Summary ---
Author Author [facility] Organization [facility] Address Unknown Phone Unavailable Care Team Providers Care Actuarial Technician Name Role Phone Ebony Sharp MD PCP Encounter Details Care Team Description Date Type Department Francoise Coelho, CHRIS 11/29/2018 Education [facility] al Specialists [address] [facility] [address] [place], [place] [address] Social History Date Tobacco Use Types Packs/Day [...] Oxygen Saturation - - Inhaled Oxygen Concentration 99.9 kg (220 lb 4.8 oz) 11/29/2018 10:24 AM CDT Weight - - Height 43.02 09/13/2018 9:59 AM TRANSFILL TECHNICIAN Body Mass Index documented in this encounter Progress Notes * eKri Gresham - 11/29/2018 9:00 AM CDT ESTABLISHED CLASS TOPIC: Resistance exercise: > Today I discussed the basics of resistance training, as well as the importance of building and maintaining strength and muscle after surgery. > Sets, repetitions, rest, frequency, number of exercises per workout, and different ways to resistance train were also discussed. > I discussed basic muscle building concepts and provided the patient with a basic exercise template to use on their own . >The patient has an adequate understanding of why he/she should do some form of resistance exercise after bariatric surgery. Pt did not start exercise last month because she said she was out of town. She a greed to start using her total gym 4x per week for 20-25 minutes each. Her origi nal goal was to find a water AT class near her, but she did not mention that thi s time. * Francoise Coelho, CHRIS - 11/29/2018 9:00 AM CDT 3 month medically supervised weight loss program Reviewed post-op diet guidelines for sleeve gastrectomy surgery. Excessive energy intake r/t food and nutrition-related knowledge deficit as evid enced by BMI of 43.02kg/m2. Pt was part of an ESTABLISHED class covering meal planning. ? Discussed tips to help with meal planning. ? Covered tips to make grocery shopping easier, more efficient. ? Showed pt recipes listed in book. ? Reviewed the different kinds of protein powders available and which type we wo uld like them to purchase. ? Instructed patients on how to read label to purchase appropriate protein powde r. ? Reviewed chart in book of acceptable protein powders. Discuss trying flavors b efore buying protein. ? Discussed goals from last time and picked new goal to work on until next visit . Goals: Pt reports she did "pretty good" getting all her fluids in each day. Pt also wor ked on making healthy food choices (lean proteins/non-starchy veggies avoiding s tarches and sweets). Pt's goal for next month is to stop drinking fluids 15 minutes before, during an d 45 minutes after meals. documented in this encounter Plan of Treatment Care Team Description Date [place] [address] [place] [address] [phone] 02/29/2020 Office Visit Urology documented as of this encounter Visit Diagnoses Not on filedocumented in this encounter
--- OUTSIDE RECORDS SUMMARY | 2019-11-28 22:22 | XMS REPORT | Encounter Summary ---
Author Author [facility] Organization [facility] Address Unknown Phone Unavailable Care Team Providers Care Groundman/Lineman Name Role Phone Ebony Sharp MD PCP Reason for Visit * Reason Comments Other Encounter Details Care Team Description Date Type Department Ebony Sharp MD [address] [facility] [address] [place] [address] [phone] Other 10/23/2018 Refill [facility] y [facility] (walk-in clinic) [address] [facility] [address] [place], [place] [address] Social History Date Tobacco Use Types Packs/Day [...] Description Date [place] [address] [place] [address] [phone] 02/29/2020 Office Visit Urology documented as of this encounter Visit Diagnoses Not on filedocumented in this encounter
--- OUTSIDE RECORDS SUMMARY | 2019-11-28 22:22 | XMS REPORT | Encounter Summary ---
Author Author [facility] Organization [facility] Address Unknown Phone Unavailable Care Team Providers Care Dining Room Busser Name Role Phone Ebony Sharp MD PCP Encounter Details Care Team Description Date Type Department Medardo Tate MD [address] [facility] [address] [place] [address] [phone] 09/06/2018 Documentation [facility] al Specialists [address] [facility] [address] [place] [address] Social History Date Tobacco Use Types Packs/Day [...] Description Date [place] [address] [place] [address] [phone] 02/29/2020 Office Visit Urology documented as of this encounter Visit Diagnoses Not on filedocumented in this encounter
--- OUTSIDE RECORDS SUMMARY | 2019-11-28 22:22 | XMS REPORT | Encounter Summary ---
Author Author [facility] Organization [facility] Address Unknown Phone Unavailable Care Team Providers Care Maintenance Team Leader Name Role Phone Ebony Sharp MD PCP Reason for Visit * Reason Comments Other Encounter Details Care Team Description Date Type Department Ebony Sharp MD [address] [facility] [address] [place] [address] [phone] Other 08/30/2018 Refill [facility] y [facility] (walk-in clinic) [address] [facility] [address] [place], [place] [address] Social History Date Tobacco Use Types Packs/Day [...] Description Date [place] [address] [place] [address] [phone] 02/29/2020 Office Visit Urology documented as of this encounter Visit Diagnoses Not on filedocumented in this encounter
--- OUTSIDE RECORDS SUMMARY | 2019-11-28 22:22 | XMS REPORT | Encounter Summary ---
Author Author [facility] Organization [facility] Address Unknown Phone Unavailable Care Team Providers Care Roustabout Pusher Name Role Phone Ebony Sharp MD PCP Encounter Details Care Team Description Date Type Department Francoise Coelho RD 11/01/2018 Education [facility] al Specialists [address] [facility] [address] [place], [place] [address] Social History Date Tobacco Use Types Packs/Day [...] Inhaled Oxygen Concentration 101.5 kg (223 lb 11.2 oz) 11/01/2018 3:57 PM CDT Weight - - Height 43.69 09/13/2018 9:59 AM PRIMARY SPECIAL EDUCATOR Body Mass Index documented in this encounter Progress Notes * Francoise Coelho, CHRIS - 11/01/2018 1:00 PM CDT 3 month medically supervised weight loss program Reviewed post-op diet guidelines for sleeve gastrectomy surgery. Excessive energy intake r/t food and nutrition-related knowledge deficit as evid enced by BMI of 43.69kg/m2. Pt was here for a NEW CLASS ? Provided information booklet to patient. ? Discussed program overview/pathway o (MSWL program: 3 month=4 visits; 6 months=7 visits, [...] focus food choices on lean proteins and vegetable s, begin eliminating starches and sweets Pt's goal for next month is to stop drinking fluids 15 minutes before, during an d 45 minutes after meals. Pt was here for a NEW class Defined exercise & explained what is NOT considered exercise for health & weight loss purposes. Explained the exercise expectations of the program: Begin with 60 min/wk and work up to 150 min/wk (2.5-3.0 hrs) by the end of e pre-op program. Expected to maintain at least [...] of the benefits of aerobic exercise on c ardiorespiratory & metabolic health. Pt was here for [...] [employer] Gym for 10-20 minutes a week. documented in this encounter Plan of Treatment Care Team Description Date [place] [address] [place] [address] [phone] 02/29/2020 Office Visit Urology documented as of this encounter Visit Diagnoses Not on filedocumented in this encounter
--- OUTSIDE RECORDS SUMMARY | 2019-11-28 22:22 | XMS REPORT | Encounter Summary ---
Author Author [facility] Organization [facility] Address Unknown Phone Unavailable Care Team Providers Care Payroll Secretary Name Role Phone Ebony Sharp MD PCP Reason for Visit * Reason Comments Other Encounter Details Care Team Description Date Type Department Ebony Sharp MD [address] [facility] [address] [place] [address] [phone] Other 10/18/2018 Refill [facility] y [facility] (walk-in clinic) [address] [facility] [address] [place], [place] [address] Social History Date Tobacco Use Types Packs/Day [...] Description Date [place] [address] [place] [address] [phone] 02/29/2020 Office Visit Urology documented as of this encounter Visit Diagnoses Not on filedocumented in this encounter Additional Health Concerns Resolved Time Infection Noted Time 08/30/2019 1:09 PM PLUMBING DESIGNER Influenza - Rule Out 08/30/2019 11:32 AM PLUMBING DESIGNER 09/17/2019 8:17 AM PLUMBING DESIGNER RSV 08/31/2019 6:35 PM PLUMBING DESIGNER documented as of this encounter
--- OUTSIDE RECORDS SUMMARY | 2019-11-28 22:22 | XMS REPORT | Encounter Summary ---
Author Author [facility] Organization [facility] Address Unknown Phone Unavailable Care Team Providers Care Application Release Manager Name Role Phone Ebony Sharp MD PCP Reason for Visit * Reason Comments Other Encounter Details Care Team Description Date Type Department Ebony Sharp MD [address] [facility] [address] [place] [address] [phone] Other 08/25/2018 Refill [facility] y [facility] (walk-in clinic) [address] [facility] [address] [place], [place] [address] Social History Date Tobacco Use Types Packs/Day [...] Description Date [place] [address] [place] [address] [phone] 02/29/2020 Office Visit Urology documented as of this encounter Visit Diagnoses Not on filedocumented in this encounter
--- OUTSIDE RECORDS SUMMARY | 2019-11-28 22:22 | XMS REPORT | Encounter Summary ---
Author Author [facility] Organization [facility] Address Unknown Phone Unavailable Care Team Providers Care Special Education Paraprofessional Name Role Phone Ebony Sharp MD PCP Reason for Visit * Reason Comments Chest pain Patient presents via [facility] wi th c/o CP since approx 629. Pt states its left sided and radiates to back. Pt has IV a ccess and was administered 50 mcg fent, 0.4 nitro sl. Encounter Details Care Team Description Date Type Department Chava Kelly MD [address] [facility] Emergency Dept [place], [place] [id number] Acute chest pain (Primary Dx) 09/13/2018 Emergency [facility] [address] [place], [place] [id number] Social History Date Tobacco Use Types Packs/Day [...] Signs Reading Time Taken Comments Vital Sign 138/85 09/13/2018 2:01 PM PUBLIC RELATIONS ASSOCIATE Blood Pressure 76 09/13/2018 2:54 PM PUBLIC RELATIONS ASSOCIATE Pulse 36.7 C (98.1 F) 09/13/2018 9:59 AM PUBLIC RELATIONS ASSOCIATE Temperature 16 09/13/2018 2:54 PM PUBLIC RELATIONS ASSOCIATE Respiratory Rate 91% 09/13/2018 2:54 PM PUBLIC RELATIONS ASSOCIATE 91% RA, PATIENT HAS PRN 02 AT HOME PLACVE ON O2 WHEELCHAIIR FOR LOBBY TO WAIT DR KELLY AND CHARGE INFORMED. PATIENT NON DISTRESS NO SOA COMPLAINTS Oxygen Saturation - - Inhaled Oxygen Concentration 106.1 kg (234 lb) 09/13/2018 9:59 AM PUBLIC RELATIONS ASSOCIATE Weight 152.4 cm (5') 09/13/2018 9:59 AM PUBLIC RELATIONS ASSOCIATE Height 45.7 09/13/2018 9:59 AM PUBLIC RELATIONS ASSOCIATE Body Mass Index documented in this encounter Discharge Instructions * Attachments The following attachments cannot be sent through Care Everywhere.* CHEST PAIN, NONCARDIAC (ALBANIAN) documented in this encounter Medications at Time [...] EVERY 4 HOURS inhaler NEEDED FOR WHEEZING 04/26/2018 10/18/2018 amitriptyline (ELAVIL) 25 TAKE 1 90 tablet 1 MG tablet TABLET(25 MG) BY MOUTH EVERY NIGHT 01/06/2018 06/22/2019 amLODIPine (NORVASC) 2.5 Take 2 180 tablet 1 MG tablet tablets (5 mg total) by mouth daily. Take one daily. 06/20/2018 10/18/2018 BREO ELLIPTA 200-25 INHALE 1 PUFF 60 each 1 mcg/dose INHALER BY MOUTH DAILY 04/26/2018 10/18/2018 citalopram (CELEXA) 20 mg Take 1 tablet 90 tablet 1 tablet (20 mg total) by mouth daily. 07/19/2018 11/28/2018 cyclobenzaprine TAKE 1 TABLET 15 tablet 0 (FLEXERIL) 10 MG tablet BY MOUTH AT BEDTIME 09/02/2018 11/28/2018 cyclobenzaprine TAKE 1 14 tablet 0 (FLEXERIL) 10 MG tablet TABLET(10 MG) BY MOUTH DAILY 04/12/2017 03/08/2019 docusate sodium (COLACE) Take 1 60 capsule 0 100 MG capsule capsule (100 mg total) by mouth 2 (two) times a day as needed for constipation (first line therapy with polyethlene glycol). 01/06/2018 10/18/2018 gabapentin (NEURONTIN) Take 2 540 capsule 1 300 MG capsule capsules (600 mg total) by mouth 3 (three) times a day. 08/30/2018 10/18/2018 insulin glargine (LANTUS Inject 15 1 vial 0 U-100 INSULIN) 100 Units under unit/mL injection the skin nightly. 01/06/2018 10/20/2018 metoprolol tartrate Take 1 tablet 180 tablet 1 (LOPRESSOR) 100 MG tablet (100 mg total) by mouth 2 (two) times a day. 09/13/2018 01/13/2019 oxyCODONE-acetaminophen Take 1-2 24 tablet 0 (PERCOCET) 5-325 mg per tablets by tablet mouth every 8 (eight) hours as needed for pain. Max Daily Dose: 6 tablets 08/26/2017 01/13/2019 simvastatin (ZOCOR) 20 MG Take 1 tablet 90 tablet 1 tablet (20 mg total) by mouth nightly. 07/30/2018 01/13/2019 simvastatin (ZOCOR) 20 MG TAKE 1 30 tablet 0 tablet TABLET(20 MG) BY MOUTH EVERY NIGHT 09/02/2018 10/23/2018 simvastatin (ZOCOR) 20 MG TAKE 1 TABLET 14 tablet 0 tablet BY MOUTH EVERY NIGHT AT BEDTIME 09/12/2018 06/22/2019 spironolactone Take 1 tablet 180 tablet 1 (ALDACTONE) 100 MG (100 mg tabletIndications: Hair total) by loss, Acne vulgaris mouth 2 (two) times a day. (Please take 1 daily for the first week) documented as of this encounter ED Notes * Kayley Samayoa RN - 09/13/2018 2:24 PM PUBLIC RELATIONS ASSOCIATE Patient calling family for a ride. Came in by ems IC RELATIONS ASSOCIATE * Chava Kelly MD - 09/13/2018 10:25 AM PUBLIC RELATIONS ASSOCIATE 09/13/2018 [facility] History Chief Complaint Patient presents with Chest pain Patient presents via [facility] with c/o CP since approx 0630. Pt states its left judah ed and radiates to back. Pt has IV access and was administered 50 mcg fent, 0.4 nitro sl. Patient presents to emergency department complaining of left-sided chest pain. She said it started this morning and woke her up. Patient has point tenderness to the left lower rib cage towards the sternum. Patient denies fever, vomiting, diarrhea. She rates the pain a 9 out of 10. Patient does have COPD and is alw ays short of breath. It is not worse [...] ARTHRODESIS; Surgeon: Adelaida Olivas MD; Location[place] [facility] [place]; Service: Orthopedics; Later ality: Left; REPAIR, INCISIONAL HERNIA, LAPAROSCOPIC, USING MESH N/A 05/25/2018 Procedure: LAPAROSCOPIC INCISIONAL HERNIA REPAIR WITH MESH; Surgeon: Medardo Tate MD; Location: [facility]; Service: General; Laterality: N/A; TONSILLECTOMY [...] time. She appears well-dev eloped and well-nourished. She appears distressed. HENT: Head: [...] to person, place, and time. No cranial n erve deficit. Skin: Skin is warm and dry. [...] or performed during the hospital encounter of 09/13/18 (from the past 24 hour(s)) Electrocardiogram (ECG) [...] or atelectasis. No focal consolidation. READING SITE: [facility] Ebony Sharp MD [address] [facility] [address] [facility] [address] ED Clinical Impression 1. Acute chest pain Patient ED Dispo ED Disposition Discharge Chava Kelly MD 09/13/18 1656 IC RELATIONS ASSOCIATE documented in this encounter Plan of Treatment Care Team Description Date [place] [address] [place] [address] [phone] 02/29/2020 Office Visit Urology documented as of this encounter Procedures Comments Procedure Name Priority Date/Time Associated Diag nosis CT ANGIO CHEST STAT 09/13/2018 1:19 PM PUBLIC RELATIONS ASSOCIATE TROPONIN STAT 09/13/2018 1:16 PM PUBLIC RELATIONS ASSOCIATE TROPONIN STAT 09/13/2018 10:45 AM PUBLIC RELATIONS ASSOCIATE LIPASE STAT 09/13/2018 10:45 AM PUBLIC RELATIONS ASSOCIATE COMPREHENSIVE METABOLIC STAT 09/13/2018 PANEL 10:45 AM PUBLIC RELATIONS ASSOCIATE CBC AND DIFF (MANUAL DIFF STAT 09/13/2018 IF NECESSARY) 10:45 AM PUBLIC RELATIONS ASSOCIATE XR CHEST SINGLE VIEW STAT 09/13/2018 FRONTAL 10:35 AM PUBLIC RELATIONS ASSOCIATE ECG STAT 09/13/2018 10:09 AM PUBLIC RELATIONS ASSOCIATE documented in this encounter Results * CT Angio Chest (09/13/2018 1:19 PM PUBLIC RELATIONS ASSOCIATE) Specimen Impressions Performed At No acute findings. No pulmonary embolus. No rib abnor mality seen. LEVI Narrative Performed At Patient: JACKELINISIAH LEVI Sex#: F # [id number] Jose#: [id number] Location: [facility] Procedure Requested: [id number] CT ANGIO CHEST Reason for Exam: severe left sided ri b pain Exam Ordered: 09/13/2018 11 15 Exam Date/Time: 09/13/2018 131 9 Begin exam date/time: 09/13/[address] ANGIO CHEST READING SITE: [facility] INDICATION: severe left sided rib pain. COMPARISON STUDY: 05/10/2017. TECHNIQUE: Following the uneventful a dministration of intravenous contrast, thin section axial CT images were obtained through the chest using the pulmonary embolus protocol. M ultiplanar and MIP reformatted images were obtained. 3D reformatted vo lume rendered images of the pulmonary arteries were performed at a separate workstation. All CT scans are performed using dose reductio n techniques. FINDINGS: Pulmonary Arteries: No pulmonary thromb oembolic disease. No evidence of pulmonary hypertension. Heart and Mediastinum: The visualized p ortions of the thyroid gland are normal in size and attenuation. No axil dong or supraclavicular lymphadenopathy. No mediastinal, hilar or retrocrural lymphadenopathy. Calcified mediastinal lymph nodes. The heart and pericardium are within normal limits. The great vessels of the thorax are normal. Lungs and Airways: Bilateral dependent and basilar subsegmental atelectasis. No pulmonary mass or conso lidation. No endoluminal lesion. Pleura: The pleural spaces are normal. Abdomen: Hepatic steatosis. Cholecystec otilia. Calcified splenic granulomas. Bones and Soft Tissues: No acute osseou s findings. No rib abnormality seen. The soft tissues of the chest wal l are within normal limits. Procedure Note Interface, Rad Results In - 09/13/2018 1:41 PM PUBLIC RELATIONS ASSOCIATE Patient: ISIAH BENÍTEZ Sex#: F # [id number] Jose#: [id number] Location: [place] [address] Procedure Requested: [id number] CT ANGIO CHEST Reason for Exam: severe left sided rib pain Exam Ordered: 09/13/2018 1115 Exam Date/Time: 09/13/2018 1319 Begin exam date/time: 09/13/[address] ANGIO CHEST READING SITE: [facility] INDICATION: severe left sided rib pain. [...] No rib abnormality seen. Performing Organization Address [facility] one Number LEVI * Troponin (09/13/2018 1:16 PM PUBLIC RELATIONS ASSOCIATE) Only the most recent of 2 results within the time period is included. [facility] Troponin <0.01 0.00 - 0.03 ng/mL [facility] Comment: [facility] Troponin Value [facility] Interpretation 0.00 - 0.03 Healthy 0.04 - 0.12 Increased Cardiac Risk >0.12 Myocardial Infarction Troponin may not become elevated until 6 to 8 hours after onset of symptoms. Specimen Blood Performing Organization Address [facility] one Number [facility] [address] [facility] [place] [address] [facility] [address] [facility] [place] [address], [place] [phone] [facility] * Lipase (09/13/2018 10:45 AM PUBLIC RELATIONS ASSOCIATE) [facility] Lipase 50 23 - 300 IU/L [facility] Specimen Blood Performing Organization Address [facility] one [facility] [address] [facility] [place] [address] [facility] [address] [facility] [place] [address], [place] [phone] [facility] * Comprehensive Metabolic Panel (09/13/2018 10:45 AM PUBLIC RELATIONS ASSOCIATE) Sodium 138 133 - 147 MEQ/L [facility] Potassium 4.2 3.5 - 5.3 MEQ/L [facility] Chloride 101 96 - 112 MEQ/L [facility] Carbon Dioxide 28 20 - 32 MEQ/L [facility] Anion Gap 9 5 - 17 [facility] Calcium 9.0 8.4 - 10.5 mg/dL [facility] Glucose 282 (H) 70 - 100 mg/dL [facility] Protein Total 7.4 6.0 - 8.2 g/dL [facility] Serum [facility] Albumin 3.9 3.5 - 5.0 g/dL [facility] Alkaline 89 42 - 140 IU/L [facility] Phosphatase [facility] Alanine 45 (H)Comment: ALT reference 0 - 34 IU/L [facility] Aminotransferas range changed on 03-01-2018 [facility] e [facility] Aspartate 46 15 - 46 IU/L [facility] Aminotransferas [facility] Bilirubin Total 0.4 0.2 - 1.3 mg/dL [facility] Blood Urea 11 7 - 26 mg/dL [facility] Nitrogen [facility] Creatinine 0.6 0.4 - 1.1 mg/dL [facility] eGFR Female AA 120 60 - 200 [facility] Comment: [facility] Chronic Kidney Disease less [facility] than 60 mL/min/1.73 sq.m Kidney failure less than 15 mL/min/1.73 sq.m eGFR Female 100 60 - 200 [facility] Non-AA Comment: [facility] Chronic Kidney Disease less [facility] than 60 mL/min/1.73 sq.m Kidney failure less than 15 mL/min/1.73 sq.m Specimen Blood Performing Organization Address City/State/Zipcode Ph one Number [facility] [address] [place] [id number] [facility] [address] [place] [address], [place] [phone] [facility] * CBC and Diff (manual diff if necessary) (09/13/2018 10:45 AM PUBLIC RELATIONS ASSOCIATE) WBC 8.11 4.00 - 11.00 TH/uL [facility] RBC 4.27 4.00 - 5.00 MIL/uL [facility] Hemoglobin 14.1 12.0 - 15.0 g/dL [facility] Hematocrit 41 36 - 45 % [facility] MCV 97 80 - 99 fL [facility] MCH 33 27 - 34 pg [facility] MCHC 34 32 - 36 % [facility] RDW 13.1 9.0 - 14.5 % [facility] Platelet Count 171 140 - 400 TH/uL [facility] MPV 10.2 9.4 - 12.3 fL [facility] % Neutrophils 66 45 - 78 % [facility] %Lymphocytes 23 15 - 47 % [facility] %Monocytes 7 0 - 12 % [facility] %Eosinophils 4 0 - 7 % [facility] %Basophils 1 0 - 2 % [facility] # Granulocytes 5.32 1.7 - 6.8 TH/uL [facility] # Lymphocytes 1.87 1.0 - 3.3 TH/uL [facility] # Monocytes 0.58 0.2 - 0.9 TH/uL [facility] # Eosinophils 0.29 0.0 - 0.4 TH/uL [facility] # Basophils 0.05 0.0 - 0.1 TH/uL [facility] Specimen Blood Performing Organization Address City/State/Zipcode Ph one Number [facility] [address] [facility] [place] [address] [facility] [address] [facility] [place] [address], [facility] * XR Chest single view frontal (09/13/2018 10:35 AM PUBLIC RELATIONS ASSOCIATE) Specimen Impressions Performed At Bandlike opacity in the left midlung zone possibly M CKESSON reflecting scarring or atelectasis. No focal consolidation. [facility] [place] Narrative Performed At Patient: ISIAH BENÍTEZ Ernestina SIMS Sex#: F # [id number] Jose#: [id number] Location: [facility] SED-27 Procedure Requested: [id number] XR CHEST SINGLE VIEW FRONTAL Reason for Exam: left sided chest samuel n Exam Ordered: 09/13/2018 10 26 Exam Date/Time: 09/13/2018 103 5 Begin exam date/time: 09/13/2018 103 0 XR CHEST SINGLE VIEW FRONTAL INDICATION: left sided chest pain. COMPARISON STUDY: 11/18/2017. FINDINGS: Life Support Devices: None. Lungs: Low lung volume with diffuse bro nchovascular crowding. Bandlike opacity in the left midlung zone possib ly reflecting scarring or atelectasis. No focal consolidation. Pleura: No pleural effusion or pneumoth orax. Heart and Mediastinum: Stable heart and mediastinum. Bones and soft tissues: Stable regional skeleton. Procedure Note Interface, Rad Results In - 09/13/2018 11:06 AM PUBLIC RELATIONS ASSOCIATE Patient: ISIAH BENÍTEZ Ernestina Sex#: F # [id number] Jose#: [id number] Location: [facility] SED-27 Procedure Requested: [id number] XR CHEST SINGLE VIEW FRONTAL Reason for [...] or atelectasis. No focal consolidation. READING SITE: [facility] Performing Organization Address City/[facility] Ph one Number LEVI * Electrocardiogram (ECG) (09/13/2018 10:09 AM PUBLIC RELATIONS ASSOCIATE) QRSd 104 TRACEMASTER QT 412 TRACEMASTER QTC 448 TRACEMASTER ECGHR 71 TRACEMASTER ECGPR 152 TRACEMASTER Specimen Narrative Performed At [facility] ED Test Date: 2018-09-13 Pat Name: ISIAH BENÍTEZ Department: ERS Room: SED Gender: Female Magazine Grinder Loader: [id number] : 1950 Requested By: CHAVA KELLY Order Number: [id number] Reading MD: Measurements Intervals [place] Rate: 71 P: 46 MO: 152 QRS: 49 QRSD: 104 T: 56 QT: 412 QTc: 448 Interpretive Statements SINUS RHYTHM Procedure Note Interface, External Ris In - 09/13/2018 4:34 PM PUBLIC RELATIONS ASSOCIATE [facility] ED Test Date: 2018-09-13 Pat Name: ISIAH BENÍTEZ Department: ERS Room: SED Gender: Female Magazine Grinder Loader: [id number] : 1950 Requested By: CHAVA KELLY Order Number: [id number] Reading MD: Measurements Intervals [place] Rate: 71 P: 46 MO: 152 QRS: 49 QRSD: 104 T: 56 QT: 412 QTc: 448 Interpretive Statements SINUS RHYTHM Performing Organization Address City/State/Zipcode Ph one Number TRACEMASTER documented in this encounter Visit Diagnoses Diagnosis Acute chest pain Unspecified chest pain documented in this encounter Administered Medications Action Date Dose Rate Site Medication Order MAR Action 09/13/2018 10:43 AM PUBLIC RELATIONS ASSOCIATE 50 mcg fentaNYL (SUBLIMAZE) injection 50 mcg Given 50 mcg, Intravenous, Once, 09/13/18 at 1027, For 1 dose, Administer over 2 minutes; max dose for IVP is 2 mcg/kg. Note: Limit does not apply to patients who may be tolerant to opioid therapy o r on continuous IV or PO opiate therapy., 09/13/2018 1:17 PM PUBLIC RELATIONS ASSOCIATE 77 mL iohexol (OMNIPAQUE) 350 mg iodine/mL Given injection 77 mL 77 mL, Intravenous, Once in imaging, contrast, Starting e 09/13/18 at 1316, For 1 dose 09/13/2018 11:23 AM PUBLIC RELATIONS ASSOCIATE 15 mg ketorolac (TORADOL) injection 15 mg Given 15 mg, Intravenous, Once, e 09/13/18 a t 1114, For 1 dose 09/13/2018 1:26 PM PUBLIC RELATIONS ASSOCIATE 2 tablets oxyCODONE-acetaminophen (PERCOCET) 5-325 Given mg 2 tablet 2 tablet, Oral, Once, e 09/13/18 at 1320, For 1 dose, Do not exceed 4 GM/DA Y of acetaminophen. If 65 or older do no t exceed 3 GM/DAY. If chronic alcoholic d o not exceed 2 GM/DAY., documented in this encounter"
--- OUTSIDE RECORDS SUMMARY | 2019-11-28 22:22 | XMS REPORT | Encounter Summary ---
Author Author [facility] Organization [facility] Address Unknown Phone Unavailable Care Team Providers Care Condenser Tube Tender Name Role Phone Ebony Sharp MD PCP Encounter Details Care Team Description Date Type Department Ebony Sharp MD [address] [facility] [address] [place], [place] [id number] 08/01/2018 Telephone [facility] (walk-in clinic) [address] [facility] [address] [place], [place] [id number] Social History Date Tobacco Use Types Packs/Day [...] encounter Miscellaneous Notes * Telephone Encounter - Sheryl Joaquin MA - 08/01/2018 9:05 AM TOWER HAND Called pharmacy R HAND documented in this encounter Plan of Treatment Care Team Description Date [place] [address] [place] [address] [phone] 02/29/2020 Office Visit Urology documented as of this encounter Visit Diagnoses Not on filedocumented in this encounter
--- OUTSIDE RECORDS SUMMARY | 2019-11-28 22:22 | XMS REPORT | Encounter Summary ---
Author Author [facility] Organization [facility] Address Unknown Phone Unavailable Care Team Providers Care Mental Health Aides Teacher Name Role Phone Ebony Sharp MD PCP Reason for Visit * Reason Comments Other Encounter Details Care Team Description Date Type Department Ebony Sharp MD [address] [facility] [address] [place] [address] [phone] Other 07/28/2018 Refill [facility] (walk-in clinic) [address] [facility] [address] [place], [place] [address] Social History Date Tobacco Use Types Packs/Day [...] Description Date [place] [address] [place] [address] [phone] 02/29/2020 Office Visit Urology documented as of this encounter Visit Diagnoses Not on filedocumented in this encounter Additional Health Concerns Resolved Time Infection Noted Time 08/30/2019 1:09 PM PROSPECT MANAGER Influenza - Rule Out 08/30/2019 11:32 AM PROSPECT MANAGER 09/17/2019 8:17 AM PROSPECT MANAGER RSV 08/31/2019 6:35 PM PROSPECT MANAGER documented as of this encounter
--- OUTSIDE RECORDS SUMMARY | 2019-11-28 22:23 | XMS REPORT | Encounter Summary ---
Author Author [facility] Organization [facility] Address Unknown Phone Unavailable Care Team Providers Care Accounts Payable Manager Name Role Phone Ebony Sharp MD PCP Reason for Visit * Reason Comments Medication Refill Encounter Details Care Team Description Date Type Department Jennifer Feng RN Medication Refill 04/26/2018 Refill [facility] (walk-in clinic) [address] [facility] [address] [place] [address] Social History Date Tobacco Use Types Packs/Day [...] Description Date [place] [address] [place] [address] [phone] 02/29/2020 Office Visit Urology documented as of this encounter Visit Diagnoses Not on filedocumented in this encounter
--- OUTSIDE RECORDS SUMMARY | 2019-11-28 22:23 | XMS REPORT | Encounter Summary ---
Author Author [facility] Organization [facility] Address Unknown Phone Unavailable Care Team Providers Care Silk Screen Printer Name Role Phone Ebony Sharp MD PCP Encounter Details Care Team Description Date Type Department RiatJennifer RN Hepatitis C antibody test positive (Prim emigdio Dx) 04/11/2018 [facility] [address] [facility] [address] [place] [address] Social History Date Tobacco Use Types Packs/Day [...] Description Date [place] [address] [place] [address] [phone] 02/29/2020 Office Visit Urology Order Schedule Name Type Priority Associated Diag noses 1 Occurrences starting 04/11/2018 until 04/11/2019 Hepatitis C PCR Lab Routine Hepatitis C an tibody test Quantitative positive documented as of this encounter Visit Diagnoses Diagnosis Hepatitis C antibody test positive Other and unspecified nonspecific immun ological findings documented in this encounter Additional Health Concerns Resolved Time Infection Noted Time 04/19/2018 12:13 PM CDT Influenza 08/30/2017 10:13 AM RETIREMENT ASSISTANT documented as of this encounter
--- OUTSIDE RECORDS SUMMARY | 2019-11-28 22:23 | XMS REPORT | Encounter Summary ---
Author Author [facility] Organization [facility] Address Unknown Phone Unavailable Care Team Providers Care Concrete Stone Fabricating Supervisor Name Role Phone Ebony Sharp MD PCP Reason for Referral * Auth/Cert (Routine) Referred By Contact Referred To Contact Status Reason Specialty Diagnoses / Procedures Medardo Tate MD [address] [facility] [address] [place] [address] Pending Review Procedures Case request operating room: REPAIR, HERNIA, INCISIONAL, LAPAROSCOPIC, USING MESH Encounter Details Care Team Description Date Type Department Rose Polo RN 04/26/2018 Prep for [facility] [address] [facility] [address] [place] [address] Social History Date Tobacco Use Types Packs/Day [...] Description Date [place] [address] [place] [address] [phone] 02/29/2020 Office Visit Urology documented as of this encounter Visit Diagnoses Not on filedocumented in this encounter
--- OUTSIDE RECORDS SUMMARY | 2019-11-28 22:23 | XMS REPORT | Encounter Summary ---
Author Author [facility] Organization [facility] Address Unknown Phone Unavailable Care Team Providers Care Supervisor Graphite Name Role Phone Ebony Sharp MD PCP Reason for Visit * Auth/Cert (Routine) Referred By Contact Referred To Contact Status Reason Specialty Diagnoses / Procedures Medardo Tate MD [address] [facility] [address] [place] [address] Pending Review Procedures Case request operating room: REPAIR, HERNIA, INCISIONAL, LAPAROSCOPIC, USING MESH Encounter Details Care Team Description Date Type Department Medardo Tate MD [address] [facility] [address] [place] [address] [phone] LAPAROSCOPIC INCISIONAL HERNIA REPAIR WI TH MESH 05/25/2018 Surgery [facility] [address] [place], [place] [id number] Social History Date Tobacco Use Types Packs/Day [...] Signs Reading Time Taken Comments Vital Sign 125/94 05/25/2018 12:00 PM CDT Blood Pressure 82 05/25/2018 12:00 PM CDT Pulse 36.3 C (97.4 F) 05/25/2018 10:21 AM CDT Temperature 27 05/25/2018 12:00 PM CDT Respiratory Rate 92% 05/25/2018 12:00 PM CDT Oxygen Saturation - - Inhaled Oxygen Concentration 105.6 kg (232 lb 11.2 oz) 05/25/2018 7:42 AM CDT Weight 157.5 cm (5' 2") 05/25/2018 7:42 AM CDT Height 42.56 05/25/2018 7:42 AM CDT Body Mass Index documented in this encounter Discharge Instructions * Pre-Procedure Instructions* Geraldine Mccoy, ADAM - 05/23/2018 8:22 AM CDT Current Outpatient Prescriptions Medication Sig Note: albuterol (VENTOLIN HFA) 90 mcg/actuation HFA inhaler INHALE 1 PUFF EVERY 4 HOURS NEEDED FOR WHEEZING Use day of surgery amitriptyline (ELAVIL) 25 MG tablet TAKE 1 TABLET(25 MG) BY MOUTH EVERY NIGH T amLODIPine (NORVASC) 2.5 MG tablet Take 2 tablets (5 mg total) by mouth eve y. Take one daily. Take day of surgery BREO ELLIPTA 200-25 mcg/dose INHALER INHALE 1 PUFF BY MOUTH DAILY Take day o f sugery citalopram (CELEXA) 20 mg tablet Take 1 tablet (20 mg total) by mouth daily. Take day of surgery cyclobenzaprine (FLEXERIL) 10 MG tablet Take 1 tablet (10 mg total) by mouth daily. Take as needed docusate sodium (COLACE) 100 MG capsule Take 1 capsule (100 mg total) by tanna th 2 (two) times a day as needed for constipation (first line therapy with polye thlene glycol). Take as needed gabapentin (NEURONTIN) 300 MG capsule Take 2 capsules (600 mg total) by mout h 3 (three) times a day. Take as needed HYDROcodone-acetaminophen (NORCO) 5-325 mg per tablet Take 1 tablet by mouth every 6 (six) hours as needed for pain. Max Daily Dose: 4 tablets Take as needed insulin glargine (LANTUS U-100 INSULIN) 100 unit/mL injection Inject 15 Unit s under the skin nightly. insulin syringe ([employer] ULTRA-FINE) 0.3 mL 31 gauge x 5/16 Inject under the skin daily. use as directed Note: ipratropium-albuterol (DUO-NEB) 0.5-3 mg/3 mL nebulizer Inhale 3 mL 4 (four) times a day. Use day of surgery metoprolol tartrate (LOPRESSOR) 100 MG tablet Take 1 tablet (100 mg total) b y mouth 2 (two) times a day. Take day of surgery OXYGEN THERAPY 2 L/min as needed. Note: simvastatin (ZOCOR) 20 MG tablet Take 1 tablet (20 mg total) by mouth nightl y. Note: * Attachments The following attachments cannot be sent through Care Everywhere.* Hernia Surgery, After (Sammarinese) documented in this encounter Medications at Time of Discharge Start Date End Date Medication Sig Dispensed Refills 08/26/2017 insulin syringe (BD Inject under 100 each 0 ULTRA-FINE) 0.3 mL 31 the skin gauge x 5/16 daily. use as directed 02/14/2016 01/14/2028 ipratropium-albuterol Inhale 3 mL 4 [...] total) by mouth daily. Take one daily. 02/18/2018 06/20/2018 BREO ELLIPTA 200-25 INHALE 1 PUFF 60 each 3 mcg/dose INHALER BY MOUTH DAILY 04/26/2018 10/18/2018 citalopram (CELEXA) 20 mg Take 1 tablet 90 tablet 1 tablet (20 mg total) by mouth daily. 04/20/2018 07/17/2018 cyclobenzaprine Take 1 tablet 60 tablet 0 (FLEXERIL) 10 MG tablet (10 mg total) by mouth daily. 04/12/2017 03/08/2019 docusate sodium (COLACE) Take 1 60 capsule 0 100 MG capsule capsule (100 mg total) by mouth 2 (two) times a day as needed for constipation (first line therapy with polyethlene glycol). 01/06/2018 10/18/2018 gabapentin (NEURONTIN) Take 2 540 capsule 1 300 MG capsule capsules (600 mg total) by mouth 3 (three) times a day. 05/11/2018 06/15/2018 HYDROcodone-acetaminophen Take 1 tablet 30 tablet 0 (NORCO) 5-325 mg per by mouth tablet every 6 (six) hours as needed for pain. Max Daily Dose: 4 tablets 05/25/2018 06/15/2018 HYDROcodone-acetaminophen Take 1-2 30 tablet 0 (NORCO) 5-325 mg per tablets by tablet mouth every 4 (four) hours as needed for pain (moderate pain). Max Daily Dose: 12 tablets 04/26/2018 08/30/2018 insulin glargine (LANTUS Inject 15 10 mL 0 U-100 INSULIN) 100 Units under unit/mL injection the skin nightly. 01/06/2018 10/20/2018 metoprolol tartrate Take 1 tablet 180 tablet 1 (LOPRESSOR) 100 MG tablet (100 mg total) by mouth 2 (two) times a day. 08/26/2017 01/13/2019 simvastatin (ZOCOR) 20 MG Take 1 tablet 90 tablet 1 tablet (20 mg total) by mouth nightly. documented as of this encounter Miscellaneous Notes * Operative Note - Medardo Tate MD - 05/25/2018 10:08 AM CDT OPERATIVE NOTE PATIENT NAME: Caren Do [facility] DATE: 05/25/2018 AGE: 67 y.o. : 1950 Preoperative diagnosis: Incarcerated incisional hernia Postoperative diagnosis: same Procedure: Laparoscopic incisional hernia repair with mesh Surgeon: Medardo Tate MD Anesthesia: General Estimated blood loss: Minimal Operative findings: 2 cm fascial defect in the lower midline containing omentum Description of procedure: Informed consent was obtained. The patient was brought to the operating room and placed in a supine position. Anesthesia was induced. Antibiotics were given. The abdomen was prepped with ChloraPrep and draped with sterile drapes. A veress needle was placed into the abdominal cavity in the LUQ and the abdomen was insufflated with carbon dioxide gas. A camera was inserted through a 5 mm trocar in the left mid abdomen and the abdomen was inspected. T here was no injury from the Veress needle. 5 mm ports were placed in the LUQ, LLQ, and an 8 mm trocar in the right mid abdomen. A hernia defect was identifie d in the lower midline. Hernia contents were reduced back into the abdominal ca vity. A 12 cm round Ventralight mesh was prepared on the back table with 0 Gort ex suture in four positions. It was then rolled and placed into the abdominal c avity through the right trocar site. Using the suture passer through small stab incisions, the mesh was oriented to cover the defect. It was then secured arou nd the mesh with the absorbable tacker. The abdomen was desufflated and all tro cars were removed. Local anesthesia was administered to the wounds and they wer e closed with subcuticular 4-0 Monocryl suture, followed by Dermabond. The patient tolerated the procedure well. Electronically signed by Medardo Tate 05/25/2018 10:08 AM documented in this encounter Plan of Treatment Care Team Description Date [place] [address] [place] [address] [phone] 02/29/2020 Office Visit Urology documented as of this encounter Procedures Comments Procedure Name Priority Date/Time Associated Diag nosis REPAIR, HERNIA, 05/25/2018 incisional hernia INCISIONAL, LAPAROSCOPIC, 8:53 AM CDT USING MESH Special Needs MESH GLUCOSE POC Routine 05/25/2018 7:29 AM CDT documented in this encounter Results * GLUCOSE POC (05/25/2018 7:29 AM CDT) Glucose POC 205 (H) 70 - 100 mg/dL [facility] Specimen Performing Organization Address City/State/Zipcode Ph one Number [facility] [address] [place] [address] [facility] [address] [place] [address], [facility] documented in this encounter Visit Diagnoses Not on filedocumented in this encounter Administered Medications Action Date Dose Rate Site Medication Order MAR Action 05/25/2018 9:58 AM CDT 30 mL Abdomina l Tissue bupivacaine-EPINEPHrine (pf) Given (MARCAINE-PF w/EPI) 0.25 %-1:200,000 injection As needed, Starting Wed05/25/18 at 0958 , Intra-op 05/25/2018 8:26 AM CDT 4 mg dexamethasone (DECADRON) injection 4 mg Given 4 mg, Intravenous, Once, Wed05/25/18 at 0845, For 1 dose, Pre-op 05/25/2018 8:24 AM CDT 20 mg famotidine (PEPCID) injection 20 mg Given 20 mg, Intravenous, Once, Wed05/25/18 a t 0845, For 1 dose, Pre-op 05/25/2018 11:31 AM CDT 25 mcg fentaNYL (SUBLIMAZE) injection 25-50 mcg Given 25-50 mcg, Intravenous, Every 5 min PRN , pain, Starting Wed05/25/18 at 1028, PAC U (only), Give only if RR is greater than 8 breaths/min. Maximum of 200 mcg in 2 hours., 50 mcg Given 05/25/2018 11:01 AM CDT 50 mcg Given 05/25/2018 10:51 AM CDT 05/25/2018 11:46 AM CDT 1 tablet HYDROcodone-acetaminophen (NORCO) 5-325 Given mg per tablet 1-2 tablet 1-2 tablet, Oral, Once as needed, moderate pain (pain score 4-6), Startin g Wed05/25/18 at 1010, For 1 dose, PACU (only), Do not exceed 4 GM/DAY of acetaminophen. If 65 or older do not exceed 3 GM/DAY. If chronic alcoholic d o not exceed 2 GM/DAY., 05/25/2018 8:20 AM CDT 50 mL/hr 50 mL/hr lactated ringers infusion New Bag 50 mL/hr, Intravenous, Continuous, Starting Wed05/25/18 at 0845, Pre-op meperidine (DEMEROL) injection 12.5 mg 12.5 mg, Intravenous, Every 5 min PRN, shivering, Starting Wed05/25/18 at 1028 , For 2 doses, PACU (only), May repeat x 1 in 5 minutes if continued shivering., ondansetron (ZOFRAN) injection 4 mg 4 mg, Intravenous, Every 6 hours PRN, nausea/vomiting (3rd line), Starting We 05/25/18 at 1028, PACU (only) oxyCODONE-acetaminophen (PERCOCET) 5-32 5 mg 1-2 tablet 1-2 tablet, Oral, Once as needed, sever e pain (pain score 7-10), Starting Wed05/25/18 at 1028, For 1 dose, PACU (only), Administer once as needed for moderate pain prior to discharge home when tolerating oral fluids., 05/25/2018 9:22 AM CDT 1,000 mL sodium chloride irrigation (NS) 0.9 % Given As needed, Starting Wed05/25/18 at 0922 , Intra-op documented in this encounter
--- OUTSIDE RECORDS SUMMARY | 2019-11-28 22:23 | XMS REPORT | Encounter Summary ---
Author Author [facility] Organization [facility] Address Unknown Phone Unavailable Care Team Providers Care Grades 6 Through 8 Teacher Name Role Phone Ebony Sharp MD PCP Encounter Details Care Team Description Date Type Department Jennifer Feng RN 04/19/2018 Telephone [facility] (walk-in clinic) [address] [facility] [address] [place], [place] [phone] Social History Date Tobacco Use Types Packs/Day [...] encounter Miscellaneous Notes * Telephone Encounter - Jennifer Feng RN - 04/19/2018 12:27 PM CDT Pt's dtr called stating she is taking pt to ER d/t severe abd pain. Pt is being seen in ER. Encouraged pt's dtr to call back if we can help in any way. documented in this encounter Plan of Treatment Care Team Description [place] [address] [place] [address] [phone] 02/29/2020 Office Visit Urology documented as of this encounter Visit Diagnoses Not on filedocumented in this encounter Additional Health Concerns Resolved Time Infection Noted Time 04/19/2018 12:13 PM CDT Influenza 08/30/2017 10:13 AM FLOWER MAKER documented as of this encounter
--- OUTSIDE RECORDS SUMMARY | 2019-11-28 22:23 | XMS REPORT | Encounter Summary ---
Author Author [facility] Organization [facility] Address Unknown Phone Unavailable Care Team Providers Care Fashion Consultant Sales Name Role Phone Ebony Sharp MD PCP Reason for Visit * Reason Comments Other Encounter Details Care Team Description Date Type Department Ebony Sharp MD [address] [facility] [address] [place], [place] [id number] Other 04/26/2018 Refill [facility] (walk-in clinic) [address] [facility] [address] [place], [place] [phone] Social History Date Tobacco Use Types Packs/Day [...] Telephone Encounter - Helena Croft MA - 04/26/2018 11:56 AM CDT Filled on 04/17/18 * Telephone Encounter - Mirella Rosenberg MA - 04/26/2018 11:34 AM CDT JAIR 04/07/18 Upcoming 07/11/18 documented in this encounter Plan of Treatment Care Team Description [place] [address] [place] [address] [phone] 02/29/2020 Office Visit Urology documented as of this encounter Visit Diagnoses Not on filedocumented in this encounter
--- OUTSIDE RECORDS SUMMARY | 2019-11-28 22:23 | XMS REPORT | Encounter Summary ---
Author Author [facility] Organization [facility] Address Unknown Phone Unavailable Care Team Providers Care Toddler Caregiver Name Role Phone Ebony Sharp MD PCP Reason for Referral * Surgical (Routine) Referred By Contact Referred To Contact Status Reason Specialty Diagnoses / Procedures Ebony Sharp MD [address] [facility] [address] [place] [address] Medardo Tate MD [address] [facility] [address] [place] [address] Closed Specialty Services General Surgery Diagnoses Required Hernia of abdominal wall Encounter Details Care Team Description Date Type Department RehmertJennifer RN Hernia of abdominal wall (Primary Dx) 04/11/2018 Orders Only [facility] (walk-in clinic) [address] [facility] [address] [place] [id number] Social History Date Tobacco Use Types Packs/Day [...] Description Date [place] [address] [place] [address] [phone] 02/29/2020 Office Visit Urology Order Schedule Name Type Priority Associated Diag noses 1 Occurrences starting 04/11/2018 until 10/12/2018 Ambulatory referral to Outpatient Routine Hernia of abdominal wall General Surgery Referral documented as of this encounter Visit Diagnoses Diagnosis Hernia of abdominal wall Unspecified ventral hernia without ment ion of obstruction or gangrene documented in this encounter Additional Health Concerns Resolved Time Infection Noted Time 04/19/2018 12:13 PM CDT Influenza 08/30/2017 10:13 AM SHRIMP HEADER documented as of this encounter
--- OUTSIDE RECORDS SUMMARY | 2019-11-28 22:23 | XMS REPORT | Encounter Summary ---
Author Author [facility] Organization [facility] Address Unknown Phone Unavailable Care Team Providers Care Rn Unit Manager Name Role Phone Ebony Sharp MD PCP Reason for Visit * Reason Comments Rectal Bleeding PT REPORTS SHE HAD HERNIA S URGERY ON 05/25 AND TONIGHT WHEN GOING TO THE BATHROOM, WHEN SHE WIPED SHE NOTICED BR IGHT RED BLOOD. C/O PAIN TO SURGICAL SITE AND STOMACH CRAMPING Encounter Details Care Team Description Date Type Department Jacob Chew MD [address] [address] Left lower quadrant pain (Primary Dx) 06/15/2018 Emergency [facility] [address] [place], [place] [id number] Social History Date Tobacco Use Types Packs/Day [...] Signs Reading Time Taken Comments Vital Sign 133/86 06/15/2018 9:45 AM CDT Blood Pressure 96 06/15/2018 9:45 AM CDT Pulse 36.9 C (98.4 F) 06/15/2018 4:13 AM CDT Temperature 21 06/15/2018 9:45 AM CDT Respiratory Rate 92% 06/15/2018 9:45 AM CDT Oxygen Saturation - - Inhaled Oxygen Concentration 99.8 kg (220 lb) 06/15/2018 4:13 AM CDT Weight 157.5 cm (5' 2") 06/15/2018 4:13 AM CDT Height 40.24 06/15/2018 4:13 AM CDT Body Mass Index documented in this encounter Discharge Instructions * Instructions* Jacob Chew MD - 06/15/2018 You were seen in the ER for abdominal pain, blood from your bottom. Your work u p was significant for a CT scan showing no acute or dangerous findings. It is important to follow up with your primary care provider and surgeon within 1 week for re-evaluation. If you do not have a primary care provider listed, yo eben will be provided a number for you to call to establish with a primary care pro vider. If you were prescribed strong pain medication (Catherine, Vicodin, Oxycodone, Percoc et, Hydrocodone, Tramadol) or a muscle relaxer (Flexeril, Valium, etc) please do not drive or perform any hazardous activities while taking these medications. Please also make sure you are taking a daily stool softener while you are taking prescription pain medications like the ones listed above. Please return to the ER if you experience any change or worsening of your sympto ms, chest pain, shortness of breath, fevers/chills, inability to take fluids bec ause of nausea/vomiting, abdominal pain, more bleeding from your bottom, or you have any other concerns. Thank you for allowing us to take care of you today. * Attachments The following attachments cannot be sent through Care Everywhere.* ABDOMINAL PAIN, UNKNOWN CAUSE, (FEMALE) ([place]) * RECTAL BLEED, STABLE ([place]) documented in this encounter Medications at Time [...] OXYGEN THERAPY 2 L/min as 0 needed. 06/15/2018 07/15/2018 HYDROcodone-acetaminophen Take 1 tablet 10 tablet 0 (NORCO) 5-325 mg per by mouth tablet every 6 (six) hours as needed for pain. Max Daily Dose: 4 tablets 06/15/2018 07/15/2018 ondansetron (ZOFRAN ODT) Dissolve 1 10 tablet 0 4 MG disintegrating tablet (4 mg tablet total) on the tongue every 8 (eight) hours as needed for nausea. 08/26/2017 08/28/2019 albuterol (VENTOLIN HFA) INHALE 1 [...] by mouth 3 (three) times a day. 04/26/2018 08/30/2018 insulin glargine (LANTUS Inject 15 [...] mouth nightly. documented as of this encounter ED Notes * Jacob Chew MD - 06/15/2018 6:16 AM CDT 06/15/2018 [facility] History Chief Complaint Patient presents with Rectal Bleeding PT REPORTS SHE HAD HERNIA SURGERY ON 05/25 AND TONIGHT WHEN GOING TO THE [place] , WHEN SHE WIPED SHE NOTICED BRIGHT RED BLOOD. C/O PAIN TO SURGICAL SITE AND S TOMACH CRAMPING Very pleasant 67-year-old female with a history of COPD, hypertension, hyperlipi demia presents for abdominal pain and bleeding when she was urinating. Patient states she recently had incarcerated hernia surgery with mesh performed on er 3 with general surgery and states that she has had worsening pain in her abdo men since this time. She characterized the pain as a tightness in her left mid abdomen that radiates down into her left lower quadrant and lower mid abdomen. She also reports a painful sensation when she urinates. She reports that she no ticed blood in the toilet earlier this morning but states she was urinating this time and not passing a bowel movement. She denies any history of hemorrhoids b ut thinks the blood was in her urine not from her bottom as she only urinated in the toilet. She denies any recent fevers or chills or chest pain or nausea or vomiting. She states that she recently ran out of pain medication from her surg patti and has been taking Naprosyn since this time. She denies any nausea or vomi ting or hematemesis. The history is provided by the patient and medical records. No language interpre ter was used. Rectal Bleeding Associated symptoms include abdominal pain. Pertinent negatives include no chest pain, congestion, fever, headaches, joint swelling, nausea, rash or vomiting. Past Medical History: Diagnosis Date Allergic rhinitis [...] three times a year Review of Systems Constitutional: Negative for activity change and fever. HENT: Negative for congestion. Eyes: Negative for visual disturbance. Respiratory: Negative for shortness of breath. Cardiovascular: Negative for chest pain. Gastrointestinal: Positive for abdominal pain. Negative for nausea and vomiting. Genitourinary: Positive for dysuria and hematuria. Musculoskeletal: Negative for joint swelling. Skin: Negative for rash. Allergic/Immunologic: Negative for immunocompromised state. Neurological: Negative for syncope and headaches. Psychiatric/Behavioral: Negative for confusion. All other systems reviewed and are negative. Physical Exam BP (!) 145/89 | Pulse 95 | Temp 36.9 C (98.4 F) (Oral) | Resp 17 | Ht 1. 575 m (5' 2") | Wt 99.8 kg (220 lb) | SpO2 94% | BMI 40.24 kg/m Physical Exam Constitutional: She is oriented to person, place, and time. She appears well-dev eloped and well-nourished. No distress. HENT: Head: Normocephalic and atraumatic. Eyes: Pupils are equal, round, and reactive to light. Conjunctivae and EOM are n ormal. Neck: Normal range of motion. No JVD present. Cardiovascular: Normal rate and regular rhythm. Exam reveals no gallop and no f riction rub. Pulmonary/Chest: Effort normal and breath sounds normal. No respiratory distress . She has no wheezes. She has no rales. Abdominal: Soft. She exhibits no distension. There is tenderness (mild left side d abdominal tenderness to palpation and lower abdomen tenderness to palpation wi thout rebound or guarding). There is no rebound and no guarding. Incisional scar well-healed, no surrounding erythema or drainage Genitourinary: Genitourinary Comments: Good rectal tone, some external hemorrhoids noted, no gr oss blood or melena on rectal exam, brown stool Musculoskeletal: She exhibits no edema or deformity. Neurological: She is alert and oriented to person, place, and time. Skin: Skin is warm and dry. Capillary refill takes less than 2 seconds. She is n ot diaphoretic. Psychiatric: She has a normal mood and affect. Nursing note and vitals reviewed. ED Course Procedures MDM Number of Diagnoses or Management Options Amount and/or Complexity of Data Reviewed Clinical lab tests: ordered Tests in the radiology section of CPT: ordered Tests in the medicine section of CPT: ordered Risk of Complications, Morbidity, and/or Mortality Presenting problems: high Diagnostic procedures: low Management options: low General comments: The patient was seen by the ER provider for abdominal pain, he maturia. The patient's initial vitals were within reasonable limits. The patient had an IV established and was connected to cardiac and pulse oximetr y monitors. The patient's presentation was concerning for UTI vs pyelonephritis vs post-oper ative infection. ED lab work was as follows: Results for orders placed or performed during the hospital encounter of 06/15/18 -CBC and Diff (manual diff if necessary) Result Value Ref Range WBC 11.13 (H) 4.00 - 11.00* RBC 4.02 4.00 - 5.00 * Hemoglobin 13.2 12.0 - 15.0 * Hematocrit 39 36 - 45 % MCV 96 80 - 99 fL MCH 33 27 - 34 pg MCHC 34 32 - 36 % RDW 13.7 9.0 - 14.5 % Platelet Count 194 140 - 400 TH* MPV 9.8 9.4 - 12.3 fL % Neutrophils 60 45 - 78 % %Lymphocytes 23 15 - 47 % %Monocytes 8 0 - 12 % %Eosinophils 9 (H) 0 - 7 % %Basophils 0 0 - 2 % # Granulocytes 6.67 1.7 - 6.8 TH* # Lymphocytes 2.53 1.0 - 3.3 TH* # Monocytes 0.89 0.2 - 0.9 TH* # Eosinophils 1.00 (H) 0.0 - 0.4 TH* # Basophils 0.04 0.0 - 0.1 TH* -Comprehensive Metabolic Panel Result Value Ref Range Sodium 137 133 - 147 ME* Potassium 4.1 3.5 - 5.3 ME* Chloride 99 96 - 112 MEQ* Carbon Dioxide 30 20 - 32 MEQ/L Anion Gap 9 5 - 17 Calcium 9.3 8.4 - 10.5 m* Glucose 282 (H) 70 - 100 mg/* Protein Total Serum 7.7 6.0 - 8.2 g/* Albumin 3.9 3.5 - 5.0 g/* Alkaline Phosphatase 99 42 - 140 IU/L Alanine Aminotransfera* 28 0 - 34 IU/L Aspartate Aminotransfe* 30 15 - 46 IU/L Bilirubin Total 0.2 0.2 - 1.3 mg* Blood Urea Nitrogen 13 7 - 26 mg/dL Creatinine 0.7 0.4 - 1.1 mg* GFR Female AA 101 60 - 200 GFR Female Non-AA 84 60 - 200 -Lactate Venous WB Result Value Ref Range Lactate Venous 2.7 (H) 0.0 - 2.0 mm* -Urinalysis Reflex Result Value Ref Range Appearance, Urine Yellow Glucose Urine 100 (A) Negative mg/* Bilirubin Urine Negative Negative Ketones Urine Negative Negative mg/* Specific Glover, UA >=1.030 1.001 - 1.030 Hemoglobin Urine Negative Negative PH Urine 5.0 5.0 - 8.0 Protein Urine Qual Negative Negative mg/* Urobilinogen Urine Negative Negative EU/* Nitrite Urine Negative Negative Leukocyte Esterase Negative Negative -Lactate Venous WB Result Value Ref Range Lactate Venous 1.8 0.0 - 2.0 mm* Imaging performed showed the following: CT Abdomen Pelvis w contrast Final Result 1. Changes of recent ventral hernia repair with mesh. Rounded area of fat necrosis in the subcutaneous tissues just inferior to the umbilicus. 2. Hepatomegaly with moderate to severe hepatic steatosis. 3. Cholecystectomy. Hysterectomy. 4. 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 Consider nonemergent urology consultation if the patient has a history of recurrent urinary tract infection. READING SITE: [facility] The patient was re-examined and is feeling better at this time. No evidence of GI bleed at this time - lactate improved after fluids. Patient feels well. Ext ernal hemorrhoids likely cause of blood with wiping this morning. The patient had all results discussed with them at the bedside. The patient was advised to follow up with their primary care provider and surgeon within 1 week. Return precautions were discussed with the patient at the bedside and they vo calized understanding. The patient was comfortable with and agreeable to the an for discharge. Precautions regarding their prescription were discussed. The patient was discharged in hemodynamically stable condition. Patient Progress Patient progress: stable ED Clinical Impression 1. Left lower quadrant pain Patient ED Dispo ED Disposition Discharge Jacob Chew MD 06/15/18 0936 * Marisa Rodas RN - 06/15/2018 4:14 AM CDT PT REPORTS SHE HAD HERNIA SURGERY ON 05/25 AND TONIGHT WHEN GOING TO THE BATHROOM , WHEN SHE WIPED SHE NOTICED BRIGHT RED BLOOD. C/O PAIN TO SURGICAL SITE AND STO MACH CRAMPING documented in this encounter Plan of Treatment Care Team Description Date [place] [address] [place] [id number] [phone] 02/29/2020 Office Visit Urology documented as of this encounter Procedures Comments Procedure Name Priority Date/Time Associated Diag nosis LACTATE VENOUS WB STAT 06/15/2018 9:10 AM CDT URINALYSIS REFLEX STAT 06/15/2018 7:[address] ABDOMEN PELVIS W STAT 06/15/2018 CONTRAST 6:41 AM CDT LACTATE VENOUS WB STAT 06/15/2018 6:03 AM CDT COMPREHENSIVE METABOLIC STAT 06/15/2018 PANEL 6:03 AM CDT CBC AND DIFF (MANUAL DIFF STAT 06/15/2018 IF NECESSARY) 6:03 AM CDT documented in this encounter Results * Lactate Venous WB (06/15/2018 9:10 AM CDT) Only the most recent of 2 results within the time period is included. Lactate Venous 1.8 0.0 - 2.0 mmol/L [facility] [employer] Specimen Blood Performing Organization Address City/[facility] one Number [facility] [address] [facility] [place] [address] [facility] [address] [employer] [address], [facility] * Urinalysis Reflex (06/15/2018 7:15 AM CDT) Appearance, Yellow [facility] Urine [facility] Glucose Urine 100 (A) Negative mg/dL [facility] [employer] [facility] Bilirubin Urine Negative Negative [facility] [employer] [facility] Ketones Urine Negative Negative mg/dL [facility] [employer] [facility] Specific >=1.030 1.001 - 1.030 [facility] [place], UA [facility] Hemoglobin Negative Negative [facility] Urine [employer] PH Urine 5.0 5.0 - 8.0 [facility] [employer] [facility] Protein Urine Negative Negative mg/dL [facility] Qual [facility] Urobilinogen Negative Negative EU/dL [facility] Urine [facility] - [facility] Nitrite Urine Negative Negative [facility] [facility] Leukocyte Negative Negative [facility] Specimen Clean Voided Urine Performing Organization Address City/[facility] one Number [facility] [address] [place], [place] [id number] [facility] [address] [facility] [place] [address], [place] [phone] [facility] * CT Abdomen Pelvis w contrast (06/15/2018 6:41 AM CDT) Specimen Impressions Performed At 1. Changes of recent ventral hernia repair with mesh. Rounded area of YAIMASON fat necrosis in the subcutaneous tissue s just inferior to the umbilicus. 2. Hepatomegaly with moderate to severe hepatic steatosis. 3. Cholecystectomy. Hysterectomy. 4. 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 Consider nonemergent urology c onsultation if the patient has a history of recurrent urinary tract infe ction. READING SITE: [facility] Narrative Performed At Patient: ISIAH BENÍTEZ Sex#: Paulina # 1950 Jose#: [id number] Location: [facility] Procedure Requested: [id number] CT ABDOM EN PELVIS W CONTRAST Reason for Exam: LLQ pain radiating t oward lower mid abdomen, recent incarcerated hernia surgery 05/25 Exam Ordered: 06/15/2018 0 615 Exam Date/Time: 06/15/2018 06 41 Begin exam date/time: 06/15/[address] ABDOMEN PELVIS W CONTRAST INDICATION: Left lower quadrant pain ra diating towards lower abdomen, recent incarcerated hernia surgery 05/25. EXAM: CT of the abdomen and pelvis with IV contrast including delayed images. The patient received 100 mL o f Omnipaque 350 without complication. Coronal and sagittal re formatted images were performed. COMPARISON: 04/10/2018 FINDINGS: No free air, free fluid, or f luid collection. Lower chest: The visualized lower lungs are aerated. Mild bibasilar subsegmental atelectasis. Normal heart size. No pleural or pericardial effusion. Granulomatous calcification. ABDOMEN: Liver: The liver is enlarged, measuring 21 cm in length. It enhances homogeneously without focal mass. Moder ate to severe hepatic steatosis. Gallbladder and biliary: Cholecystectom y. Normal caliber bile ducts. Spleen: Normal spleen. Numerous calcifi ed granulomas. Pancreas: The pancreas enhances homogen eously without focal mass, ductal dilation, or peripancreatic inflammator y changes. Adrenal glands: Normal adrenal glands. Kidneys and ureters: Large nonobstructi ve calculus in the lower pole of the left kidney measures up to 1.2 cm i n maximum dimension. Small simple cyst in the lower pole of the right kid kvng. The kidneys and ureters are otherwise normal. No ureteral calculi o r hydronephrosis. GI tract: The stomach is decompressed a nd poorly evaluated. Small bowel and colon are of normal caliber. Norm al appendix. Vascular structures: Normal caliber abd ominal aorta. Mild aortoiliac atherosclerotic calcification. The danica ac artery, SMA, bilateral renal arteries, and HANS are patent. Portal an d mesenteric venous structures are patent. Lymph nodes: No lymphadenopathy in the abdomen or pelvis. PELVIS: Genitourinary system: Normal bladder. L arge urethral diverticulum contains 3 small dependent stones (seri es 2, image 85). The diverticulum measures approximately 3 x 2 cm in zepeda sverse and AP dimensions. Hysterectomy. Calcified pelvic phleboli ths. SKELETAL STRUCTURES AND SOFT TISSUES: C hanges of recent ventral hernia repair with mesh. 4.5 x 3.5 cm rounded area of heterogeneous fat attenuation in the subcutaneous tissues just below the level of the umbilicus (series 2, image 62) should r epresent postoperative fat necrosis. No fracture or destructive le sions in the visualized skeleton. Moderate degenerative changes in the lo wer lumbar facets. Minimal anterolisthesis of L4 on L5. Moderate d egenerative changes in both hips with subchondral cystic changes. Procedure Note Interface, Rad Results In - 06/15/2018 7:11 AM CDT Patient: ISIAH BENÍTEZ Sex#: Paulina # 1950 Jose#: [id number] Location: [facility] Procedure Requested: [id number] CT ABDOMEN PELVIS W CONTRAST Reason for Exam: LLQ pain radiating toward lower mid abdomen, recent incarcerated hernia surgery 05/25 Exam Ordered: 06/15/2018 0615 Exam Date/Time: 06/15/2018 0641 Begin exam date/time: 06/15/[address] ABDOMEN PELVIS W CONTRAST INDICATION: Left lower quadrant pain radiating towards lower abdomen, recent incarcerated hernia surgery 05/25/2018. EXAM: CT of the abdomen and pelvis with IV contrast including delayed images. The patient received 100 mL of Omnipaque 350 without complication. Coronal and sagittal reformatted images were performed. COMPARISON: 04/10/2018 FINDINGS: No free air, free fluid, or fluid collection. Lower chest: The visualized lower lungs are aerated. Mild bibasilar subsegmental atelectasis. Normal heart size. No pleural or pericardial effusion. Granulomatous calcification. ABDOMEN: Liver: The liver is enlarged, measuring 21 cm in length. It enhances homogeneously without focal mass. Moderate to severe hepatic steatosis. Gallbladder and biliary: Cholecystectomy. Normal caliber bile ducts. Spleen: Normal spleen. Numerous calcified granulomas. Pancreas: The pancreas enhances homogeneously without focal mass, ductal dilation, or peripancreatic inflammatory changes. Adrenal glands: Normal adrenal glands. Kidneys and ureters: Large nonobstructive calculus in the lower pole of the left kidney measures up to 1.2 cm in maximum dimension. Small simple cyst in the lower pole of the right kidney. The kidneys and ureters are otherwise normal. No ureteral calculi or hydronephrosis. GI tract: The stomach is decompressed and poorly evaluated. Small bowel and colon are of normal caliber. Normal appendix. Vascular structures: Normal caliber abdominal aorta. Mild aortoiliac atherosclerotic calcification. The celiac artery, SMA, bilateral renal arteries, and HANS are patent. Portal and mesenteric venous structures are patent. Lymph nodes: No lymphadenopathy in the abdomen or pelvis. PELVIS: Genitourinary system: Normal bladder. Large urethral diverticulum contains 3 small dependent stones (series 2, image 85). The diverticulum measures approximately 3 x 2 cm in transverse and AP dimensions. Hysterectomy. Calcified pelvic phleboliths. SKELETAL STRUCTURES AND SOFT TISSUES: Changes of recent ventral hernia repair with mesh. 4.5 x 3.5 cm rounded area of heterogeneous fat attenuation in the subcutaneous tissues just below the level of the umbilicus (series 2, image 62) should represent postoperative fat necrosis. No fracture or destructive lesions in the visualized skeleton. Moderate degenerative changes in the lower lumbar facets. Minimal anterolisthesis of L4 on L5. Moderate degenerative changes in both hips with subchondral cystic changes. IMPRESSION 1. Changes of recent ventral hernia repa ir with mesh. Rounded area of fat necrosis in the subcutaneous tissues just inferior to the umbilicus. 2. Hepatomegaly with moderate to severe hepatic steatosis. 3. Cholecystectomy. Hysterectomy. 4. 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 Consider nonemergent urology consultation if the patient has a history of recurrent urinary tract infection. READING SITE: [facility] Performing Organization Address City/State/Zipcode Ph one Number [place] * Comprehensive Metabolic Panel (06/15/2018 6:03 AM CDT) Sodium 137 133 - 147 MEQ/L [facility] Potassium 4.1 3.5 - 5.3 MEQ/L [facility] Chloride 99 96 - 112 MEQ/L [facility] Carbon Dioxide 30 20 - 32 MEQ/L [facility] Anion Gap 9 5 - 17 [facility] Calcium 9.3 8.4 - 10.5 mg/dL [facility] Glucose 282 (H) 70 - 100 mg/dL [facility] Protein Total 7.7 6.0 - 8.2 g/dL [employer] Serum [facility] Albumin 3.9 3.5 - 5.0 g/dL [facility] Alkaline 99 42 - 140 IU/L [employer] Phosphatase [facility] Alanine 28Comment: ALT reference range 0 - 34 IU/L [facility] Aminotransferas changed on 03-01-2018 [facility] Aspartate 30 15 - 46 IU/L [facility] Aminotransferas [facility] Bilirubin Total 0.2 0.2 - 1.3 mg/dL [facility] Blood Urea 13 7 - 26 mg/dL [facility] [employer] Nitrogen [facility] Creatinine 0.7 0.4 - 1.1 mg/dL [facility] eGFR Female AA 101 60 - 200 [facility] Comment: [facility] Chronic Kidney Disease less [facility] than 60 mL/min/1.73 sq.m Kidney failure less than 15 mL/min/1.73 sq.m eGFR Female 84 60 - 200 [facility] Non-AA Comment: [facility] Chronic Kidney Disease less [facility] than 60 mL/min/1.73 sq.m Kidney failure less than 15 mL/min/1.73 sq.m Specimen Blood Performing Organization Address City/State/Zipcode Ph one Number [facility] [address] [facility] [place], [place] [id number] [facility] [address] [facility] [place] [facility] [place] [address], [facility] * CBC and Diff (manual diff if necessary) (06/15/2018 6:03 AM CDT) WBC 11.13 (H) 4.00 - 11.00 TH/uL [facility] RBC 4.02 4.00 - 5.00 MIL/uL [facility] Hemoglobin 13.2 12.0 - 15.0 g/dL [facility] Hematocrit 39 36 - 45 % [facility] MCV 96 80 - 99 fL [facility] MCH 33 27 - 34 pg [facility] MCHC 34 32 - 36 % [facility] RDW 13.7 9.0 - 14.5 % [facility] Platelet Count 194 140 - 400 TH/uL [facility] MPV 9.8 9.4 - 12.3 fL [facility] % Neutrophils 60 45 - 78 % [facility] %Lymphocytes 23 15 - 47 % [facility] %Monocytes 8 0 - 12 % [facility] %Eosinophils 9 (H) 0 - 7 % [facility] %Basophils 0 0 - 2 % [facility] # Granulocytes 6.67 1.7 - 6.8 TH/uL [facility] # Lymphocytes 2.53 1.0 - 3.3 TH/uL [facility] # Monocytes 0.89 0.2 - 0.9 TH/uL [facility] # Eosinophils 1.00 (H) 0.0 - 0.4 TH/uL [facility] # Basophils 0.04 0.0 - 0.1 TH/uL [facility] Specimen Blood Performing Organization Address City/State/Zipcode Ph one Number [facility] [address] [facility] [place] [address] [facility] [address] [place] [address], [facility] documented in this encounter Visit Diagnoses Diagnosis Left lower quadrant pain Abdominal pain, left lower quadrant documented in this encounter Administered Medications Action Date Dose Rate Site Medication Order MAR Action 06/15/2018 6:24 AM CDT 75 mcg fentaNYL (SUBLIMAZE) injection 75 mcg Given 75 mcg, Intravenous, Once, Wed06/15/18 at 0618, For 1 dose, Administer over 2 minutes; max dose for IVP is 2 mcg/kg. Note: Limit does not apply to patients who may be tolerant to opioid therapy o r on continuous IV or PO opiate therapy., 06/15/2018 6:43 AM CDT 100 mL iohexol (OMNIPAQUE) 350 mg iodine/mL Given injection 1-500 mL 1-500 mL, Intravenous, Once in imaging, contrast, Starting Wed06/15/18 at 0643 , For 1 dose 06/15/2018 7:37 AM CDT 8 mg morphine 4 mg/mL injection 8 mg Given 8 mg, Intravenous, Once, Wed06/15/18 a t 0727, For 1 dose, Administer over 5 min ; max dose of IVP is 10 mg. Note: Limit does not apply to patients who may be tolerant to opioid therapy or on continuous IV or PO opiate therapy., 06/15/2018 6:23 AM CDT 1,000 mL 983.61 mL/hr sodium chloride 0.9% (NS) IV Bolus New Bag 1,000 mL, Intravenous, Administer over 61 Minutes, Once, 06/15/18 at 0618, For 1 dose documented in this encounter
--- OUTSIDE RECORDS SUMMARY | 2019-11-28 22:23 | XMS REPORT | Encounter Summary ---
Author Author [facility] Organization [facility] Address Unknown Phone Unavailable Care Team Providers Care Cloud Software Engineer Name Role Phone Ebony Sharp MD PCP Encounter Details Care Team Description Date Type Department Zaida Faria RN 05/26/2018 Telephone [facility] [address] [place] [address] Social History Date Tobacco Use Types Packs/Day [...] encounter Miscellaneous Notes * Telephone Encounter - Zaida Faria RN - 05/26/2018 11:26 AM CDT Pt states her incisions are stinging and burning but denies rash or fever. Pt i nstructed that no additional pain medication can be given. Pt instructed if samuel n is severe to go to the ED, pt verbalized understanding. * Telephone Encounter - Zaida Faria RN - 05/26/2018 11:[address] Tate Pt had hernia surgery yesterday and states her pain medication is not working. Pt given Duncan. documented in this encounter Plan of Treatment Care Team Description [place] [address] [place] [address] [phone] 02/29/2020 Office Visit Urology documented as of this encounter Visit Diagnoses Not on filedocumented in this encounter
--- OUTSIDE RECORDS SUMMARY | 2019-11-28 22:23 | XMS REPORT | Encounter Summary ---
Author Author [facility] Organization [facility] Address Unknown Phone Unavailable Care Team Providers Care Bee Rancher Name Role Phone Ebony Sharp MD PCP Reason for Visit * Reason Comments Medication Refill Encounter Details Care Team Description Date Type Department Medardo Tate MD [address] [place] [address] [phone] Medication Refill 05/11/2018 Refill [facility] [address] [facility] [place] [address] Social History Date Tobacco Use Types Packs/Day [...] Description Date [place] [address] [place] [address] [phone] 02/29/2020 Office Visit Urology documented as of this encounter Visit Diagnoses Not on filedocumented in this encounter
--- OUTSIDE RECORDS SUMMARY | 2019-11-28 22:23 | XMS REPORT | Encounter Summary ---
Author Author [facility] Organization [facility] Address Unknown Phone Unavailable Care Team Providers Care Orange Peel Operator Name Role Phone Ebony Sharp MD PCP Reason for Visit * Reason Comments Abdominal Pain left abd pain, recently bela gnosed with hernia. has surgeon appt today at 1345- but pain too bad to wait, kunal, 05/02. Encounter Details Care Team Description Date Type Department Celso Palma, DO [address] [place], [place] [id number] Umbilical hernia without obstruction and without gangrene (Primary Dx) 04/19/2018 Emergency [facility] [address] [place], [place] [id number] Social History Date Tobacco Use Types Packs/Day [...] Signs Reading Time Taken Comments Vital Sign 156/104 04/19/2018 11:12 AM CDT Blood Pressure 80 04/19/2018 11:12 AM CDT Pulse 36.9 C (98.4 F) 04/19/2018 11:12 AM CDT Temperature 18 04/19/2018 11:12 AM CDT Respiratory Rate 95% 04/19/2018 11:12 AM CDT Oxygen Saturation - - Inhaled Oxygen Concentration 101.2 kg (223 lb) 04/19/2018 11:12 AM CDT Weight - - Height 40.79 04/07/2018 2:09 PM CDT Body Mass Index documented in this encounter Discharge Instructions * Attachments The following attachments cannot be sent through Care Everywhere.* Hernia, What Is a (Nigerian) * HERNIA (INGUINAL, VENTRAL, UMBILICAL) (BELGIAN) documented in this encounter Medications at Time [...] EVERY 4 HOURS inhaler NEEDED FOR WHEEZING 08/26/2017 04/26/2018 amitriptyline (ELAVIL) 25 Take 1 tablet 90 tablet 1 MG tablet (25 mg total) by mouth nightly. 04/19/2018 04/26/2018 amitriptyline (ELAVIL) 25 TAKE 1 90 tablet 1 MG tablet TABLET(25 MG) BY MOUTH EVERY NIGHT 01/06/2018 06/22/2019 amLODIPine (NORVASC) 2.5 Take 2 180 tablet 1 MG tablet tablets (5 mg total) by mouth daily. Take one daily. 04/19/2018 05/23/2018 amLODIPine (NORVASC) 2.5 TAKE 1 90 tablet 0 MG tablet TABLET(2.5 MG) BY MOUTH DAILY 02/18/2018 06/20/2018 BREO ELLIPTA 200-25 INHALE 1 PUFF 60 each 3 mcg/dose INHALER BY MOUTH DAILY 08/26/2017 04/26/2018 citalopram (CELEXA) 20 mg Take 1 tablet 90 tablet 1 tablet (20 mg total) by mouth daily. 04/19/2018 04/26/2018 citalopram (CELEXA) 20 mg TAKE 1 90 tablet 1 tablet TABLET(20 MG) BY MOUTH DAILY 01/21/2018 04/20/2018 cyclobenzaprine Take 1 tablet 0 (FLEXERIL) 10 MG tablet by mouth daily. 04/12/2017 03/08/2019 docusate sodium (COLACE) Take 1 60 capsule 0 100 MG capsule capsule (100 mg total) by mouth 2 (two) times a day as needed for constipation (first line therapy with polyethlene glycol). 01/06/2018 10/18/2018 gabapentin (NEURONTIN) Take 2 540 capsule 1 300 MG capsule capsules (600 mg total) by mouth 3 (three) times a day. 04/19/2018 05/23/2018 gabapentin (NEURONTIN) TAKE 1 270 capsule 1 300 MG capsule CAPSULE(300 MG) BY MOUTH THREE TIMES DAILY 04/19/2018 04/26/2018 HYDROcodone-acetaminophen Take 1 tablet 20 tablet 0 (NORCO) 5-325 mg per by mouth tablet every 6 (six) hours as needed for pain. Max Daily Dose: 4 tablets 08/26/2017 04/20/2018 insulin glargine (LANTUS) Inject 15 10 mL 0 100 unit/mL injection Units under the skin nightly. 04/19/2018 04/26/2018 LANTUS U-100 INSULIN 100 INJECT 30 10 mL 0 unit/mL injection UNITS UNDER THE SKIN NIGHTLY. RESUME TO 15 UNITS NIGHTLY WHEN STEROIDS ARE COMPLETE 01/06/2018 10/20/2018 metoprolol tartrate Take 1 tablet 180 tablet 1 (LOPRESSOR) 100 MG tablet (100 mg total) by mouth 2 (two) times a day. 04/19/2018 05/23/2018 metoprolol tartrate TAKE 1 180 tablet 0 (LOPRESSOR) 100 MG tablet TABLET(100 MG) BY MOUTH TWICE DAILY 08/26/2017 01/13/2019 simvastatin (ZOCOR) 20 MG Take 1 tablet 90 tablet 1 tablet (20 mg total) by mouth nightly. documented as of this encounter ED Notes * Celso Palma DO - 04/19/2018 12:25 PM CDT 04/19/2018 [facility] History Chief Complaint Patient presents with Abdominal Pain left abd pain, recently diagnosed with hernia. has surgeon appt today at 1345- but pain too bad to wait, kunal, 05/02. 67-year-old female presents with intermittent the left periumbilical hernia pain over the last 4 days. Patient was scheduled to see general surgeon Dr. Tate today at 1:45 PM. However since this morning she has had worsening left-sided u mbilical pain and is now no longer able to eat due to ongoing nausea. Patient d enies any diarrhea. She did have a CT scan on April 10 that showed a small fat filled periumbilical hernia on the left side. The history is provided by the patient. Abdominal Pain Pain location: Periumbilical Pain quality: aching Pain radiates to: Does not radiate Pain severity: Severe Onset quality: Gradual Duration: 5 hours Timing: Constant Progression: Unchanged Chronicity: Recurrent Relieved by: Nothing Worsened by: Nothing Ineffective treatments: None tried Associated symptoms: anorexia and nausea Associated symptoms: no constipation, no diarrhea and no vomiting Risk factors: obesity Risk factors: not elderly Past Medical History: Diagnosis Date Allergic rhinitis [...] ANKLE ARTHRODESIS; Surgeon: Adelaida Olivas MD; [place] [facility] [place]; Service: Orthopedics; Later ality: Left; TONSILLECTOMY TOTAL KNEE ARTHROPLASTY Left 2010 TOTAL [...] three times a year Review of Systems Gastrointestinal: Positive for abdominal pain, anorexia and nausea. Negative for constipation, diarrhea and vomiting. All other systems reviewed and are negative. Physical Exam BP (!) 156/104 | Pulse 80 | Temp 36.9 C (98.4 F) (Oral) | Resp 18 | Wt 1 01.2 kg (223 lb) | SpO2 95% | BMI 40.79 kg/m Physical Exam Constitutional: She is oriented to person, place, and time. She appears well-dev eloped and well-nourished. No distress. HENT: Head: Normocephalic and atraumatic. Eyes: Pupils are equal, round, and reactive to light. Conjunctivae and EOM are n ormal. Neck: Normal range of motion. Neck supple. No JVD present. No tracheal deviation present. Cardiovascular: Normal rate, regular rhythm and normal heart sounds. Exam revea ls no gallop and no friction rub. No murmur heard. Pulmonary/Chest: Effort normal and breath sounds normal. No stridor. No respirat ory distress. She has no wheezes. She has no rales. Abdominal: Soft. Bowel sounds are normal. She exhibits no distension. There is t enderness. A hernia is present. Hernia confirmed positive in the ventral area (u mbilical ). Musculoskeletal: She exhibits no edema or tenderness. Neurological: She is alert and oriented to person, place, and time. Skin: Skin is warm and dry. No rash noted. She is not diaphoretic. No erythema. Psychiatric: She has a normal mood and affect. Nursing note and vitals reviewed. ED Course Procedures Vitals: 04/19/18 1112 BP: (!) 156/104 Pulse: 80 Resp: 18 Temp: 36.9 C (98.4 F) SpO2: 95% Weight: 101.2 kg (223 lb) O2 saturation O2 saturation is 95 % On Room Air . Interpretation: normal 12:27 PM MDM Spoke with general surgeon Dr. Tate and discussed the patient had arrived to [facility] ER today with a recent CT scan on 04/10 that showed a fat filled periumbilical hernia. He states there is no reason that after pain medications and attempted reduction could not be attempted. Spoke with Dr. Tate again as the patient was feeling slightly better but not c ompletely reduce the hernia. He states patient is feeling better then discharge home. LABS Results for orders placed or performed during the hospital encounter of 04/19/18 (from the past 24 hour(s)) CBC and Diff (manual diff if necessary) Result Value Ref Range WBC 9.23 4.00 - 11.00 TH/uL RBC 4.58 4.00 - 5.00 MIL/uL Hemoglobin 14.9 12.0 - 15.0 g/dL Hematocrit 43 36 - 45 % MCV 95 80 - 99 fL MCH 33 27 - 34 pg MCHC 34 32 - 36 % RDW 14.0 9.0 - 14.5 % Platelet Count 160 140 - 400 TH/uL MPV 10.1 9.4 - 12.3 fL % Neutrophils 53 45 - 78 % %Lymphocytes 31 15 - 47 % %Monocytes 11 0 - 12 % %Eosinophils 4 0 - 7 % %Basophils 0 0 - 2 % # Granulocytes 4.90 1.7 - 6.8 TH/uL # Lymphocytes 2.88 1.0 - 3.3 TH/uL # Monocytes 1.00 (H) 0.2 - 0.9 TH/uL # Eosinophils 0.41 (H) 0.0 - 0.4 TH/uL # Basophils 0.04 0.0 - 0.1 TH/uL Comprehensive Metabolic Panel Result Value Ref Range Sodium 138 133 - 147 MEQ/L Potassium 4.0 3.5 - 5.3 MEQ/L Chloride 99 96 - 112 MEQ/L Carbon Dioxide 32 20 - 32 MEQ/L Anion Gap 7 5 - 17 Calcium 9.9 8.4 - 10.5 mg/dL Glucose 130 (H) 70 - 100 mg/dL Protein Total Serum 8.3 (H) 6.0 - 8.2 g/dL Albumin 4.5 3.5 - 5.0 g/dL Alkaline Phosphatase 96 42 - 140 IU/L Alanine Aminotransferase 33 0 - 34 IU/L Aspartate Aminotransferase 40 15 - 46 IU/L Bilirubin Total 0.4 0.2 - 1.3 mg/dL Blood Urea Nitrogen 20 7 - 26 mg/dL Creatinine 0.8 0.4 - 1.1 mg/dL GFR Female AA 86 60 - 200 GFR Female Non-AA 72 60 - 200 Lipase Result Value Ref Range Lipase 76 23 - 300 IU/L Lactate Venous WB - Use GREEN tube Result Value Ref Range Lactate Venous 1.5 0.0 - 2.0 mmol/L RADIOLOGY XR Abdomen min 2 views Final Result FINDINGS: IMPRESSION: Cholecystectomy clips within right upper quadrant again demonstrated. Radiopaque density measuring 1.1 x 0.8 cm seen overlying left abdomen possibly related to kidney stone. No evidence of free air is present. The visualized bowel gas pattern demonstrates moderate diffuse colonic stool suggesting moderate constipation. No other significant abnormality is identified. READING SITE: [facility] NOTE: Parts of this report were generated with voice recognition software. J [employer] Imagin2010;24(4):724-8. DIAGNOSIS Problem List Items Addressed This Visit None Visit Diagnoses Umbilical hernia without obstruction and without gangrene - Primary CRITICAL CARE TIME: No 0 MINUTES ED Clinical Impression 1. Umbilical hernia without obstruction and without gangrene Patient ED Dispo ED Disposition Discharge Celso Palma DO 04/19/18 1503 documented in this encounter Plan of Treatment Care Team Description Date [place] [address] [place] [address] [phone] 02/29/2020 Office Visit Urology Order Schedule Name Type Priority Associated Diag noses STAT for 1 Occurrences starting 04/19/20 18 until 04/19/2018 Urinalysis Reflex Lab STAT documented as of this encounter Procedures Comments Procedure Name Priority Date/Time Associated Diag nosis LIPASE STAT 04/19/2018 1:30 PM CDT LACTATE VENOUS WB STAT 04/19/2018 1:30 PM CDT COMPREHENSIVE METABOLIC STAT 04/19/2018 PANEL 1:30 PM CDT CBC AND DIFF (MANUAL DIFF STAT 04/19/2018 IF NECESSARY) 1:30 PM CDT XR ABDOMEN MIN 2 VIEWS STAT 04/19/2018 1:04 PM CDT documented in this encounter Results * Lactate Venous WB - Use GREEN tube (04/19/2018 1:30 PM CDT) Lactate Venous 1.5 0.0 - 2.0 mmol/L [facility] Specimen Blood Performing Organization Address City/State/Zipcode Ph one Number [facility] [address] [place] [address] [facility] [address] [place] [address], [place] [phone] [facility] * Lipase (04/19/2018 1:30 PM CDT) Lipase 76 23 - 300 IU/L [facility] Specimen Blood Performing Organization Address City/State/[facility] Ph one Number [facility] [address] [facility] [facility] [place] [place], [place] [id number] [facility] [address] [place] [address], [place] [phone] [facility] * Comprehensive Metabolic Panel (04/19/2018 1:30 PM CDT) Pathologist [facility] Sodium 138 133 - 147 MEQ/L [facility] Potassium 4.0 3.5 - 5.3 MEQ/L [facility] Chloride 99 96 - 112 MEQ/L [facility] Carbon Dioxide 32 20 - 32 MEQ/L [facility] Anion Gap 7 5 - 17 [facility] Calcium 9.9 8.4 - 10.5 mg/dL [facility] Glucose 130 (H) 70 - 100 mg/dL [facility] Protein Total 8.3 (H) 6.0 - 8.2 g/dL [facility] Serum [facility] Albumin 4.5 3.5 - 5.0 g/dL [facility] Alkaline 96 42 - 140 IU/L [facility] Phosphatase [facility] Alanine 33Comment: ALT reference range 0 - 34 IU/L [facility] Aminotransferas changed on 03-01-2018 [facility] Aspartate 40 15 - 46 IU/L [facility] Aminotransferas [facility] Bilirubin Total 0.4 0.2 - 1.3 mg/dL [facility] Blood Urea 20 7 - 26 mg/dL [facility] Nitrogen [facility] Creatinine 0.8 0.4 - 1.1 mg/dL [facility] eGFR Female AA 86 60 - 200 [facility] Comment: [facility] Chronic Kidney Disease less [facility] than 60 mL/min/1.73 sq.m Kidney failure less than 15 mL/min/1.73 sq.m eGFR Female 72 60 - 200 [facility] Non-AA Comment: [facility] Chronic Kidney Disease less [facility] than 60 mL/min/1.73 sq.m Kidney failure less than 15 mL/min/1.73 sq.m Specimen Blood Performing Organization Address City/State/Zipcode Ph one Number [facility] [address] [place] [address] [facility] [address] [facility] [employer] [place] [address], [facility] * CBC and Diff (manual diff if necessary) (04/19/2018 1:30 PM CDT) WBC 9.23 4.00 - 11.00 TH/uL [facility] RBC 4.58 4.00 - 5.00 MIL/uL [facility] Hemoglobin 14.9 12.0 - 15.0 g/dL [facility] Hematocrit 43 36 - 45 % [facility] MCV 95 80 - 99 fL [facility] MCH 33 27 - 34 pg [facility] MCHC 34 32 - 36 % [facility] RDW 14.0 9.0 - 14.5 % [facility] Platelet Count 160 140 - 400 TH/uL [facility] MPV 10.1 9.4 - 12.3 fL [facility] % Neutrophils 53 45 - 78 % [facility] %Lymphocytes 31 15 - 47 % [facility] %Monocytes 11 0 - 12 % [facility] %Eosinophils 4 0 - 7 % [facility] %Basophils 0 0 - 2 % [facility] # Granulocytes 4.90 1.7 - 6.8 TH/uL [facility] # Lymphocytes 2.88 1.0 - 3.3 TH/uL [facility] # Monocytes 1.00 (H) 0.2 - 0.9 TH/uL [facility] # Eosinophils 0.41 (H) 0.0 - 0.4 TH/uL [facility] # Basophils 0.04 0.0 - 0.1 TH/uL [facility] Specimen Blood Performing Organization Address City/State/Zipcode Ph one Number [facility] [address] [place] [address] [facility] [address] [place] [address], [place] [phone] [facility] * XR Abdomen min 2 views (04/19/2018 1:04 PM CDT) Specimen Impressions Performed At FINDINGS: IMPRESSION: [facility] Cholecystectomy clips within right uppe r quadrant again demonstrated. Radiopaque density measuring 1.1 x 0.8 cm seen overlying left abdomen possibly related to kidney stone. No evidence of free air is present. The visualized bowel gas pattern demons trates moderate diffuse colonic stool suggesting moderate constipation. No other significant abnormality is ирина ntified. READING SITE: [facility] NOTE: Parts of this report were generated wit [employer] On[employer] voice recognition software. [employer] Imagin2010;24(4):724-8. Narrative Performed At Patient: ISIAH BENÍTEZ Sex#: Paulina # 1950 Jose#: [id number] Location: [place] [address] Procedure Requested: [id number] XR ABDOM EN MIN 2 VIEWS Reason for Exam: ABDOMINAL PAIN Exam Ordered: 04/19/2018 12 45 Exam Date/Time: 04/19/2018 130 4 Begin exam date/time: 04/19/2018 125 0 3 images of the abdomen provided on this study; Comparison: None Procedure Note Interface, Rad Results In - 04/19/2018 1:40 PM CDT Patient: ISIAH BENÍTEZ Sex#: Paulina # 1950 Jose#: [id number] Location: [place] [address] Procedure Requested: [id number] XR ABDOMEN MIN 2 VIEWS Reason for Exam: ABDOMINAL PAIN Exam Ordered: 04/19/2018 1245 Exam Date/Time: 04/19/2018 1304 Begin exam date/time: 04/19/2018 1250 3 images of the abdomen provided on this study; Comparison: None IMPRESSION FINDINGS: IMPRESSION: Cholecystectomy clips within right upper quadrant again demonstrated. Radiopaque density measuring 1.1 x 0.8 cm seen overlying left abdomen possibly related to kidney stone. No evidence of free air is present. The visualized bowel gas pattern demonstrates moderate diffuse colonic stool suggesting moderate constipation. No other significant abnormality is identified. READING SITE: [facility] NOTE: Parts of this report were generated with voice recognition software. [employer] Imagin2010;24(4):724-8. Performing Organization Address City/State/Zipcode Ph one [facility] documented in this encounter Visit Diagnoses Diagnosis Umbilical hernia without obstruction an d without gangrene documented in this encounter Administered Medications Action Date Dose Rate Site Medication Order MAR Action 04/19/2018 2:16 PM CDT 100 mcg fentaNYL (SUBLIMAZE) injection 100 mcg Given 100 mcg, Intravenous, Once, 04/19/18 at 1416, For 1 dose, Administer over 2 minutes; max dose for IVP is 2 mcg/kg. Note: Limit does not apply to patients who may be tolerant to opioid therapy o r on continuous IV or PO opiate therapy., 04/19/2018 12:27 PM CDT 50 mcg fentaNYL (SUBLIMAZE) injection 50 mcg Given 50 mcg, Intravenous, Once, 04/19/18 at 1227, For 1 dose, Administer over 2 minutes; max dose for IVP is 2 mcg/kg. Note: Limit does not apply to patients who may be tolerant to opioid therapy o r on continuous IV or PO opiate therapy., documented in this encounter Additional Health Concerns Resolved Time Infection Noted Time 04/19/2018 12:13 PM CDT Influenza 08/30/2017 10:13 AM END POLISHER documented as of this encounter"
--- OUTSIDE RECORDS SUMMARY | 2019-11-28 22:23 | XMS REPORT | Encounter Summary ---
Author Author [facility] Organization [facility] Address Unknown Phone Unavailable Care Team Providers Care Care Aide Name Role Phone Ebony Sharp MD PCP Reason for Visit * Reason Comments Other Encounter Details Care Team Description Date Type Department Ebony Sharp MD [address] [facility] [address] [place], [place] [id number] Other 06/20/2018 Refill [facility] (walk-in clinic) [address] [facility] [address] [place], [place] [id number] Social History Date Tobacco Use Types Packs/Day [...] Telephone Encounter - Helena Croft MA - 06/20/2018 5:30 PM CDT JAIR 04/07/18 Upcoming 07/11/18 documented in this encounter Plan of Treatment Care Team Description Date [place] [address] [place] [address] [phone] 02/29/2020 Office Visit Urology documented as of this encounter Visit Diagnoses Not on filedocumented in this encounter
--- OUTSIDE RECORDS SUMMARY | 2019-11-28 22:23 | XMS REPORT | Encounter Summary ---
Author Author [facility] Organization [facility] Address Unknown Phone Unavailable Care Team Providers Care Remote Control Mirror Installer Name Role Phone Ebony Sharp MD PCP Reason for Visit * Reason Comments Hernia Encounter Details Care Team Description Date Type Department Medardo Tate MD [address] [facility] [address] [place], [place] [id number] Incisional hernia, without obstruction o r gangrene (Primary Dx) 04/26/2018 Initial consult [facility] [address] [facility] [address] [place], [place] [id number] Social History Date Tobacco Use Types Packs/Day [...] Signs Reading Time Taken Comments Vital Sign 143/78 04/26/2018 9:59 AM CDT Blood Pressure 67 04/26/2018 9:59 AM CDT Pulse - - Temperature - - Respiratory Rate - - Oxygen Saturation - - Inhaled Oxygen Concentration 101.2 kg (223 lb) 04/26/2018 9:59 AM CDT Weight 157.5 cm (5' 2") 04/26/2018 9:59 AM CDT Height 40.79 04/26/2018 9:59 AM CDT Body Mass Index documented in this encounter Progress Notes * Medardo Tate MD - 04/26/2018 10:00 AM CDT Patient ID: Caren Patten is a 67 y.o. female 1950 CSN: [id number] Chief Complaint Patient presents with Hernia HPI: This is a 67-year-old female who was recently in the emergency room with pain la st week associated with a hernia containing fat around her umbilicus. She state s that she has had the hernia for quite some time but only had pain over the las t few weeks. She states that she does note when she eats regular food she has m ore discomfort at the umbilicus. A recent CT scan showed a small fat-containing hernia at the umbilicus. She has had no change in her bowel habits and denies any nausea or vomiting. Past Medical History: Diagnosis Date [...] ANKLE ARTHRODESIS; Surgeon: Adelaida Olivas MD; [place] [facility] [place]; Service: Orthopedics; Later ality: Left; TONSILLECTOMY TOTAL KNEE ARTHROPLASTY Left 2009 TOTAL [...] Allergies Allergen Reactions Lisinopril Anaphylaxis Metformin Anaphylaxis Sulfa (Sulfonamide Antibiotics) Hives Current Outpatient Prescriptions Medication Sig Dispense Refill albuterol (VENTOLIN HFA) 90 mcg/actuation HFA inhaler INHALE 1 PUFF EVERY 4 HOURS NEEDED FOR WHEEZING 18 g 2 amitriptyline (ELAVIL) 25 MG tablet Take 1 tablet (25 mg total) by mouth nig htly. 90 tablet 1 amitriptyline (ELAVIL) 25 MG tablet TAKE 1 TABLET(25 MG) BY MOUTH EVERY NIGH T 90 tablet 1 amLODIPine (NORVASC) 2.5 MG tablet Take 2 tablets (5 mg total) by mouth eve y. Take one daily. 180 tablet 1 amLODIPine (NORVASC) 2.5 MG tablet TAKE 1 TABLET(2.5 MG) BY MOUTH DAILY 90 t ablet 0 BREO ELLIPTA 200-25 mcg/dose INHALER INHALE 1 PUFF BY MOUTH DAILY 60 each 3 citalopram (CELEXA) 20 mg tablet Take 1 tablet (20 mg total) by mouth daily. 90 tablet 1 citalopram (CELEXA) 20 mg tablet TAKE 1 TABLET(20 MG) BY MOUTH DAILY 90 tabl et 1 cyclobenzaprine (FLEXERIL) 10 MG tablet Take 1 tablet (10 mg total) by mouth daily. 60 tablet 0 docusate sodium (COLACE) 100 MG capsule Take 1 capsule (100 mg total) by tanna th 2 (two) times a day as needed for constipation (first line therapy with polye thlene glycol). 60 capsule 0 gabapentin (NEURONTIN) 300 MG capsule Take 2 capsules (600 mg total) by mout h 3 (three) times a day. 540 capsule 1 gabapentin (NEURONTIN) 300 MG capsule TAKE 1 CAPSULE(300 MG) BY MOUTH THREE TIMES DAILY 270 capsule 1 HYDROcodone-acetaminophen (NORCO) 5-325 mg per tablet Take 1 tablet by mouth every 6 (six) hours as needed for pain. Max Daily Dose: 4 tablets 20 tablet 0 insulin glargine (LANTUS U-100 INSULIN) 100 unit/mL injection Inject 15 Unit s under the skin nightly. 10 mL 0 insulin syringe (BD ULTRA-FINE) 0.3 mL 31 gauge x 5/16 Inject under the skin daily. use as directed 100 each 0 LANTUS U-100 INSULIN 100 unit/mL injection INJECT 30 UNITS UNDER THE SKIN NI GHTLY. RESUME TO 15 UNITS NIGHTLY WHEN STEROIDS ARE COMPLETE 10 mL 0 metoprolol tartrate (LOPRESSOR) 100 MG tablet Take 1 tablet (100 mg total) b y mouth 2 (two) times a day. 180 tablet 1 metoprolol tartrate (LOPRESSOR) 100 MG tablet TAKE 1 TABLET(100 MG) BY MOUTH TWICE DAILY 180 tablet 0 OXYGEN THERAPY 2 L/min as needed. simvastatin (ZOCOR) 20 MG tablet Take 1 tablet (20 mg total) by mouth nightl y. 90 tablet 1 ipratropium-albuterol (DUO-NEB) 0.5-3 mg/3 mL nebulizer Inhale 3 mL 4 (four) times a day. 360 mL 11 No current facility-administered medications for this visit. Review of Systems Constitutional: Negative. HENT: Negative. Eyes: Negative. Respiratory: Negative. Cardiovascular: Negative. Gastrointestinal: Negative. Genitourinary: Negative. Musculoskeletal: Negative. Skin: Negative. Neurological: Negative. Endo/Heme/Allergies: Negative. Psychiatric/Behavioral: Negative. Physical Exam: Vitals: 04/26/18 0959 BP: (!) 143/78 Pulse: 67 Weight: 101.2 kg (223 lb) Height: 1.575 m (5' 2") General: Alert and oriented and in no apparent distress HEENT: Normocephalic, atraumatic Sclera: Anicteric Neck: Supple, no masses, no bruits, no lymphadenopathy Abdomen: Soft, non-tender, non-distended, incarcerated hernia palpable at the um bilicus that is mildly tender. No Hepatosplenomegaly. Extremities: Non-tender, no edema Skin: Grossly Normal Neurological: Cranial nerves are grossly intact. Mood and affect is normal. Assessment/Plan: SNOMED CT(R) 1. Incisional hernia, without obstruction or gangrene INCISIONAL HERNIA Laparoscopic incisional hernia repair with mesh. Risks of the surgery were disc ussed with her including but not limited to bleeding, infection, injury to adjac ent structures. She understands these risks and wishes to proceed. cc: Ebony Sharp MD No ref. provider found Parts of this note were generated with voice recognition software, please excuse any typographical or grammatical errors. documented in this encounter Plan of Treatment Care Team Description [place] [address] [place] [address] [phone] 02/29/2020 Office Visit Urology documented as of this encounter Visit Diagnoses Diagnosis Incisional hernia, without obstruction or gangrene documented in this encounter
--- OUTSIDE RECORDS SUMMARY | 2019-11-28 22:23 | XMS REPORT | Encounter Summary ---
Author Author [facility] Organization [facility] Address Unknown Phone Unavailable Care Team Providers Care Senior Enlisted Advisor Name Role Phone Ebony Sharp MD PCP Reason for Visit * Auth/Cert (Routine) Referred By Contact Referred To Contact Status Reason Specialty Diagnoses / Procedures Medardo Tate MD [address] [address] Pending Review Procedures Case request operating room: REPAIR, HERNIA, INCISIONAL, LAPAROSCOPIC, USING MESH Encounter Details Care Team Description Date Type Department Ariel Hernandez MD [address] [place] [address] [phone] Glenys Howe CRNA [address] [place] [address] [phone] 05/25/2018 Anesthesia [facility] [address] [place] [address] Anesthesia Record Responsible Anesthesiologist Anesthesia Start Time Anesthesi a Stop Time Procedure Name Ariel Hernandez MD 05/25/18 0853 05/25/18 1022 LAPAROSCOPIC INCISIONAL HERNIA REPAIR WITH MESH (N/A Abdomen) Date Time Event Comment 811 AN Equip Check 2017 0814 Anesthesia Initial Contact 0816 0853 An Start 0853 In room 0853 An Start Data 0854 Pt eval immediately prior to anesthesia 0854 Preoxygenated Prior to Induction 0857 An Induction 0859 An Intubation 0901 PreOp Abx complete 0906 Anesthesia Ready 0910 Time out complete 0912 Procedure start - Primary Case 1003 Procedure stop - Primary case 1003 FiO2 to 100% Prior to Suctioning 1004 Suction 1014 Spontaneous respirations 1016 Sustained head lift 1016 An Extubation 1017 an stop data 1018 Out of Room 1022 Handoff I completed my SBAR handoff to the receiving nurse in the PACU. 1022 An Stop Meds Name Total midazolam (VERSED) injection 1 mg/mL 2 mg fentaNYL (SUBLIMAZE) injection 50 mcg/mL 100 mcg propofol 10mg/mL 200 mg succinylcholine (ANECTINE) 20 mg/mL 100 mg injection rocuronium 10mg/mL 50 mg ondansetron 2mg/mL 4 mg ketorolac 30mg/mL 30 mg sugammadex (BRIDION) injection 100 mg/mL 500 mg phenylepherine 0.1mg/mL 100 mcg ephedrine 10mg/mL 10 mg ceFAZolin (ANCEF) injection 2 g 2 g lactated ringers infusion 900 mL * Name Cell Saver Blood Intake O2 N2O Air EtSEVO EtISO EtDES EtN2O * No blood administrations on file. Removal Type Details Placement 05/25/18 1016 by Glenys Howe CRNA Non-Surgic Able to mask ventilate prior to 0907 by serena Airway placement: Yes; Placed By: Bottom Precipitator Operator; Site: Oral; Device: ETT - Cuffed; Size: 7; Units: Millimeters; Method: Video Laryngoscope, Standard Stylet; Blade Type: MAC; Blade Size: 3; Attempts: 1; If multiple attempts taken please describe: Gonzales #3 used. ; Grade View: I; Misc: Cricoid Pressure; Airway Observations: oropharynx clear, cords visualized; Cuff Volume: 7; Placement Verified By: Auscultation, Capnometry; Secured At (cm): 21; Measured From: Lips; Removal Date: 05/25/18; Removal Time: 1016 05/25/18 1011 by Sheryl Milner RN (Retired 04/09/17; 1338; Foot; Left; 05/25/18; 04/09/17 1338 by Isidra 09/14/18; 1011 ADAM Moya search "wound" if placing new) Wound - Incision Assessment 05/25/18 1245 by Sheryl Milner RN Peripheral Date: 05/25/18; Time: 746; Size 05/25 0747 by Patricia Maldonado IV (gauge): 20 G; Orientation: Left; Mark rivera RN Location: Forearm; Site Prep: Chlorhexidine; Insertion Attempts: 1; Inserted By: Sheryl MEDINA; Removal Date: 05/25/18; Removal Time: 1245 03/12/19 0836 by User Epicbatch (Retired 05/25/18; 0926; Abdomen; 03/12/19 (This 05/25/18 0926 by Isidra 09/14/18; LDA has been removed & completed via A ADAM jamison search automated utility); 0836 (T his LDA has "wound" if been removed & completed vi a automated placing utility) new) Wound - Incision Assessment documented in this encounter Social History Date [...] Postprocedure Evaluation - Ariel Hernandez MD - 05/25/2018 11:45 AM CDT Anesthesia Post Evaluation Patient Evaluated in: PACU Patient Participation: complete - patient participated Level of Consciousness: awake and alert Pain scale: Adequate analgesia. Pain Management: adequate Airway Patency: patent Respiratory Status: spontaneous ventilation Cardiovascular Status: hemodynamically stable Postoperative Hydration: euvolemic Anesthetic Complications: No Appropriate for discharge from anesthesia care, no apparent anesthesia related c omplication ANE Post Eval Vitals Most Recent Value BP 125/94 filed at 05/25/2018 1200 Pulse 82 filed at 05/25/2018 1200 Temp 36.3 C (97.4 F) filed at 05/25/2018 1021 Resp 27 filed at 05/25/2018 1200 SpO2 92 % filed at 05/25/2018 1200 * Anesthesia Preprocedure Evaluation - Ariel Hernandez MD - 05/25/2018 8:15 AM CDT Relevant Problems No relevant active problems Anesthesia Evaluation No history of anesthetic complications NO history of tobacco use. Airway Mallampati: II TM distance: >3 FB Neck ROM: full Dental - normal exam Pulmonary - normal exam (+) COPD (uses o2 prn at home), sleep apnea on CPAP, Cardiovascular - normal e xam (+) hypertension, Neuro/Psych GI/Hepatic/Renal (+) renal disease, (-) GERD Endo/Other (+) diabetes mellitus type 2 using insulin, Abdominal (+) obese, Obstetrics HEENT Negative HEENT ROS Musculoskeletal Negative musculoskeletal ROS Anesthesia Plan ASA 3 Type: general () Plan to include: ETT Anesthetic plan and risks discussed with patient. Plan discussed with EXTRACTOR LOADER AND UNLOADER. Post-operative analgesia: routine analgesia and antiemetics Recovery plan: PACU Risk factors for PONV: female and non smoker PONV risk level: moderate documented in this encounter Plan of Treatment Care Team Description Date [place] [address] [place] [address] [phone] 02/29/2020 Office Visit Urology documented as of this encounter Visit Diagnoses Not on filedocumented in this encounter Administered Medications Action Date Dose Rate Site Medication Order MAR Action 05/25/2018 9:01 AM CDT 2 g ceFAZolin (ANCEF) injection 2 g Given 2 g, Intravenous, 60 min pre-op, Indications: PERIOPERATIVE, Starting We d 05/25/18 at 0733, For 1 dose, Pre-op, I f giving IV push, reconstitute each vial with 10 ml sterile water and give over 3-5 minutes. If sterile water is unavailable, may use Bacteriostatic Water or Normal Saline for reconstitution, 05/25/2018 9:13 AM CDT 10 mg EPHEDrine 10 mg/mL syringe Given Intravenous, As needed, Starting Wed05/25/18 at 0913, Anesthesia Intra-op 05/25/2018 8:57 AM CDT 100 mcg fentaNYL (SUBLIMAZE) injection Given Intravenous, As needed, Starting Wed05/25/18 at 0847, Anesthesia Intra-op 05/25/2018 9:57 AM CDT 30 mg ketorolac (TORADOL) injection Given Intravenous, As needed, moderate pain (pain score 4-6), Starting Wed05/25/18 at 0957, Anesthesia Intra-op 05/25/2018 8:47 AM CDT 2 mg midazolam (PF) (VERSED) injection Given Intravenous, As needed, Starting Wed05/25/18 at 0847, Anesthesia Intra-op 05/25/2018 9:57 AM CDT 4 mg ondansetron (ZOFRAN) injection Given Intravenous, As needed, nausea, vomiting, Starting Wed05/25/18 at 0957, Anesthesia Intra-op 05/25/2018 9:15 AM CDT 100 mcg phenylephrine HCl in 0.9% NaCl Given (NEOSYNEPHRINE) 1 mg/10 mL (100 mcg/mL) injection Intravenous, As needed, Starting Wed05/25/18 at 0915, Anesthesia Intra-op 05/25/2018 8:57 AM CDT 200 mg propofol (DIPRIVAN) injection Given Intravenous, As needed, Starting Wed05/25/18 at 0847, Anesthesia Intra-op 05/25/2018 9:25 AM CDT 10 mg rocuronium (ZEMURON) injection Given Intravenous, As needed, Starting Wed05/25/18 at 0905, Anesthesia Intra-op 10 mg Given 05/25/2018 9:19 AM CDT 30 mg Given 05/25/2018 9:05 AM CDT 05/25/2018 8:57 AM CDT 100 mg succinylcholine (ANECTINE) injection Given Intravenous, As needed, Starting Wed05/25/18 at 0857, Anesthesia Intra-op 05/25/2018 9:59 AM CDT 500 mg sugammadex injection Given Intravenous, As needed, Starting Wed05/25/18 at 0959, Anesthesia Intra-op documented in this encounter
--- OUTSIDE RECORDS SUMMARY | 2019-11-28 22:23 | XMS REPORT | Encounter Summary ---
Author Author [facility] Organization [facility] Address Unknown Phone Unavailable Care Team Providers Care Advertising Intern Name Role Phone Ebony Sharp MD PCP Reason for Visit * Reason Comments Medication Refill Encounter Details Care Team Description Date Type Department Ebony Sharp MD [address] [facility] [address] [place], [place] [id number] Medication Refill 04/20/2018 Refill [facility] (walk-in clinic) [address] [facility] [address] [place], [place] [id number] Social History Date Tobacco Use Types Packs/Day [...] encounter Miscellaneous Notes * Telephone Encounter - Dolly Cortez LPN - 04/20/2018 9:41 AM CDT JAIR 8.16.18 documented in this encounter Plan of Treatment Care Team Description Date [place] [address] [place] [address] [phone] 02/29/2020 Office Visit Urology documented as of this encounter Visit Diagnoses Not on filedocumented in this encounter
--- OUTSIDE RECORDS SUMMARY | 2019-11-28 22:23 | XMS REPORT | Encounter Summary ---
Author Author [facility] Organization [facility] Address Unknown Phone Unavailable Care Team Providers Care Washer And Crusher Tender Name Role Phone Ebony Sharp MD PCP Reason for Visit * Auth/Cert (Routine) Referred By Contact Referred To Contact Status Reason Specialty Diagnoses / Procedures Medardo Tate MD [address] [facility] [address] [place] [address] Pending Review Procedures Case request operating room: REPAIR, HERNIA, INCISIONAL, LAPAROSCOPIC, USING MESH Encounter Details Care Team Description Date Type Department Medardo Tate MD [address] [facility] [address] [place] [address] [phone] Incarcerated incisional hernia 05/25/2018 [facility] [address] [place], [place] [id number] Social History Date Tobacco Use Types Packs/Day [...] Discharge Instructions * Pre-Procedure Instructions* Geraldine Mccoy, RN - 05/23/2018 8:22 AM CDT Current Outpatient [...] s under the skin nightly. insulin syringe (Efficas ULTRA-FINE) 0.3 mL 31 gauge x 5/16 [...] sent through Care Everywhere.* Hernia Surgery, After (Citizen Of [place]) documented in this encounter Medications at Time [...] AM CDT OPERATIVE NOTE PATIENT NAME: Caren Patten DATE: 05/25/2018 AGE: 67 y.o. : 1950 [...] Description Date [place] [address] [place] [address] [phone] 02/29/2020 Office Visit Urology documented as of this encounter Procedures Comments Procedure Name Priority Date/Time Associated Diag nosis REPAIR, HERNIA, 05/25/2018 incisional hernia INCISIONAL, LAPAROSCOPIC, 8:53 AM CDT USING MESH Special Needs MESH GLUCOSE POC Routine 05/25/2018 7:29 AM CDT documented in this encounter Results * GLUCOSE POC (05/25/2018 7:29 AM CDT) Glucose POC 205 (H) 70 - 100 mg/dL [facility] Specimen Performing Organization Address City/State/Zipcode Ph one Number [facility] [address] [facility] [place] [address] [facility] [place] [address] [place] [address], [facility] documented in this encounter Visit Diagnoses Diagnosis Incarcerated incisional hernia Incisional hernia with obstruction documented in this encounter Administered Medications Action Date Dose Rate Site Medication Order MAR Action 05/25/2018 8:26 AM CDT 4 mg dexamethasone [...] PRN, nausea/vomiting (3rd line), Starting We d 05/25/18 at 1028, PACU (only) oxyCODONE-acetaminophen (PERCOCET) 5-32 5 mg 1-2 tablet 1-2 tablet, Oral, Once as needed, sever e pain (pain score 7-10), Starting 05/25/18 at 1028, For 1 dose, PACU (only), Administer once as needed for moderate pain prior to discharge home when tolerating oral fluids., documented in this encounter
--- OUTSIDE RECORDS SUMMARY | 2019-11-28 22:23 | XMS REPORT | Encounter Summary ---
Author Author [facility] Organization [facility] Address Unknown Phone Unavailable Care Team Providers Care Validation Architect Name Role Phone Ebony Sharp MD PCP Reason for Referral * MRI/CAT/PET Scan (Routine) Referred By Contact Referred To Contact Status Reason Specialty Diagnoses / Procedures Ebony Sharp MD [address] [place] [address] Closed Radiology Diagnoses Periumbilical abdominal pain P rocedures CT Abdomen Pelvis w contrast Reason for Visit * MRI/CAT/PET Scan (Routine) Referred By Contact Referred To Contact Status Reason Specialty Diagnoses / Procedures Ebony Sharp MD [address] [place] [address] Closed Radiology Diagnoses Periumbilical abdominal pain P rocedures CT Abdomen Pelvis w contrast Encounter Details Care Team Description Date Type Department Ebony Sharp MD [address] [place] [id number] Periumbilical abdominal pain 04/10/2018 [facility] [address] [facility] [place] [address] Social History Date Tobacco Use Types Packs/Day [...] tablet (25 mg total) by mouth nightly. 01/06/2018 06/22/2019 amLODIPine (NORVASC) 2.5 Take 2 180 tablet 1 MG tablet tablets (5 mg total) by mouth daily. Take one daily. 02/18/2018 06/20/2018 BREO ELLIPTA 200-25 INHALE 1 PUFF 60 each 3 mcg/dose INHALER BY MOUTH DAILY 08/26/2017 04/26/2018 citalopram (CELEXA) 20 mg Take 1 tablet 90 tablet 1 tablet (20 mg total) by mouth daily. 01/21/2018 04/20/2018 cyclobenzaprine Take 1 tablet 0 [...] by mouth 3 (three) times a day. 08/26/2017 04/20/2018 insulin glargine (LANTUS) Inject 15 10 mL 0 100 unit/mL injection Units under the skin nightly. 01/06/2018 10/20/2018 metoprolol tartrate Take 1 tablet 180 tablet 1 (LOPRESSOR) 100 MG tablet (100 mg total) by mouth 2 (two) times a day. 08/26/2017 01/13/2019 simvastatin (ZOCOR) 20 MG Take 1 tablet 90 tablet 1 tablet (20 mg total) by mouth nightly. documented as of this encounter Progress Notes * Ebony Sharp MD - 04/11/2018 1:20 PM CD[place] to [address] referral for general surgery per her request for hernia. documented in this encounter Plan of Treatment Care Team Description Date [place] [address] [place] [id number] [phone] 02/29/2020 Office Visit Urology documented as of this encounter Procedures Comments Procedure Name Priority Date/Time Associated Diag nosis CT ABDOMEN PELVIS W Routine 04/10/2018 Periumbili rosalind abdominal CONTRAST 10:34 AM CDT pain documented in this encounter Results * CT Abdomen Pelvis w contrast (04/10/2018 10:34 AM CDT) Specimen Impressions Performed At [facility] fat-containing left periumbilical hernia [facility] ON No acute CT abnormality within the abdo men or pelvis Nonobstructing left renal calculus READING SITE: [facility] Imaging Narrative Performed At Patient: ISIAH BENÍTEZ Sex#: F # [id number] Jose#: [id number] Location: [facility] [place] CT Procedure Requested: [id number] CT ABDOM EN PELVIS W CONTRAST Reason for Exam: Periumbilical abdomi nal pain Exam Ordered: 04/10/2018 10 03 Exam Date/Time: 04/10/2018 103 4 Begin exam date/time: 04/10/[address] ABDOMEN PELVIS W CONTRAST INDICATION: Periumbilical abdominal samuel n EXAM: CT of the abdomen and pelvis with oral and IV contrast including delayed images. The patient received 100 mL of Omnipaque 350 without complication. Coronal and sagittal re formatted images were performed. COMPARISON: 11/25/2017 FINDINGS: Lower chest: The visualized lung bases are clear.. ABDOMEN: Liver: The liver enhances homogeneously without focal mass. Gallbladder and biliary: Status post ch olecystectomy Spleen: Normal spleen. Pancreas: The pancreas enhances homogen eously without focal mass, ductal dilation, or peripancreatic inflammator y changes. Adrenal glands: Normal adrenal glands. Kidneys and ureters: Stable 1 cm presum ed cyst in the inferior right kidney. Nonobstructing left renal calcu wilbert. No ureteral calculi or hydronephrosis GI tract: The visualized segments of marita wel are unremarkable Normal appendix. Vascular structures: Normal caliber abd ominal aorta. Lymph nodes: No retroperitoneal mass or lymphadenopathy. No ascites or fluid collections PELVIS: Urinary bladder is normally distended Status post hysterectomy No suspicious mass or lymphadenopathy SKELETAL STRUCTURES AND SOFT TISSUES: N o fracture or destructive lesions in the visualized skeleton. Tiny fat-containing left periumbilical hernia with slight induration of the fat Procedure Note Interface, Rad Results In - 04/11/2018 7:00 AM CDT Patient: ISIAH BENÍTEZ Sex#: Paulina # [id number] Jose#: [id number] Location: [facility] [place] CT Procedure Requested: [id number] CT ABDOMEN PELVIS W CONTRAST Reason for Exam: Periumbilical abdominal pain Exam Ordered: 04/10/2018 1003 Exam Date/Time: 04/10/2018 1034 Begin exam date/time: 04/10/[address] ABDOMEN PELVIS W CONTRAST INDICATION: Periumbilical abdominal pain EXAM: CT of the abdomen and pelvis with oral and IV contrast including delayed images. The patient received 100 mL of Omnipaque 350 without complication. Coronal and sagittal reformatted images were performed. COMPARISON: 11/25/2017 FINDINGS: Lower chest: The visualized lung bases are clear.. ABDOMEN: Liver: The liver enhances homogeneously without focal mass. Gallbladder and biliary: Status post cholecystectomy Spleen: Normal spleen. Pancreas: The pancreas enhances homogeneously without focal mass, ductal dilation, or peripancreatic inflammatory changes. Adrenal glands: Normal adrenal glands. Kidneys and ureters: Stable 1 cm presumed cyst in the inferior right kidney. Nonobstructing left renal calculus. No ureteral calculi or hydronephrosis GI tract: The visualized segments of bowel are unremarkable Normal appendix. Vascular structures: Normal caliber abdominal aorta. Lymph nodes: No retroperitoneal mass or lymphadenopathy. No ascites or fluid collections PELVIS: Urinary bladder is normally distended Status post hysterectomy No suspicious mass or lymphadenopathy SKELETAL STRUCTURES AND SOFT TISSUES: No fracture or destructive lesions in the visualized skeleton. Tiny fat-containing left periumbilical hernia with slight induration of the fat IMPRESSION Tiny fat-containing left periumbilical hernia No acute CT abnormality within the abdomen or pelvis Nonobstructing left renal calculus READING SITE: [facility] Imaging Performing Organization Address City/State[facility] one Number LEVI documented in this encounter Visit Diagnoses Diagnosis Periumbilical abdominal pain Abdominal pain, periumbilic documented in this encounter Administered Medications Action Date Dose Rate Site Medication Order MAR Action 04/10/2018 10:35 AM CDT 900 mL barium (READI-CAT) rosenberg smoothie 1-900 Given mL 1-900 mL, Oral, Once in imaging, contrast, Starting 04/10/18 at 1035, For 1 dose 04/10/2018 10:35 AM CDT 100 mL iohexol (OMNIPAQUE) 350 mg iodine/mL Given injection 1-500 mL 1-500 mL, Intravenous, Once in imaging, contrast, Starting 04/10/18 at 1034, For 1 dose documented in this encounter Additional Health Concerns Resolved Time Infection Noted Time 04/19/2018 12:13 PM CDT Influenza 08/30/2017 10:13 AM CLERK SPECIALIST documented as of this encounter
--- OUTSIDE RECORDS SUMMARY | 2019-11-28 22:23 | XMS REPORT | Encounter Summary ---
Author Author [facility] Organization [facility] Address Unknown Phone Unavailable Care Team Providers Care Agronomy Research Manager Name Role Phone Ebony Sharp MD PCP Reason for Visit * Reason Comments Other Encounter Details Care Team Description Date Type Department Ebony Sharp MD [address] [facility] [address] [place], [place] [id number] Other 04/17/2018 Refill [facility] y [facility] (walk-in clinic) [address] [facility] [address] [place], [place] [id number] Social History Date Tobacco Use Types Packs/Day [...] encounter Miscellaneous Notes * Telephone Encounter - Mirella Rosenberg MA - 04/18/2018 7:44 AM CDT JAIR 04/07/18 Upcoming 07/11/18 documented in this encounter Plan of Treatment Care Team Description Date [place] [address] [place] [address] [phone] 02/29/2020 Office Visit Urology documented as of this encounter Visit Diagnoses Not on filedocumented in this encounter Additional Health Concerns Resolved Time Infection Noted Time 04/19/2018 12:13 PM CDT Influenza 08/30/2017 10:13 AM RAILCAR MECHANIC 08/30/2019 1:09 PM RAILCAR MECHANIC Influenza - Rule Out 08/30/2019 11:32 AM RAILCAR MECHANIC 09/17/2019 8:17 AM RAILCAR MECHANIC RSV 08/31/2019 6:35 PM RAILCAR MECHANIC documented as of this encounter
--- OUTSIDE RECORDS SUMMARY | 2019-11-28 22:24 | XMS REPORT | Encounter Summary ---
Author Author [facility] Organization [facility] Address Unknown Phone Unavailable Care Team Providers Care Credit Review Officer Name Role Phone Ebony Sharp MD PCP Reason for Referral * MRI/CAT/PET Scan (Routine) Referred By Contact Referred To Contact Status Reason Specialty Diagnoses / Procedures Ebony Sharp MD [address] [facility] [address] [place] [address] [place] [address] Closed Radiology Diagnoses Periumbilical abdominal pain P rocedures CT Abdomen Pelvis w contrast * Diagnostic Imaging (Routine) Referred By Contact Referred To Contact Status Reason Specialty Diagnoses / Procedures Ebony Sharp MD [address] [facility] [address] [place] [address] [address] Mammo [address] [facility], [address] [place] [address] Canceled Radiology Diagnoses Healthcare maintenance P rocedures MA Mammogram screening w CAD bilat Reason for Visit * Reason Comments Follow-up 3 months AWV Abdominal Pain knot on abdomen Encounter Details Care Team Description Date Type Department Ebony Sharp MD [address] [facility] [address] [place] [address] [phone] Chronic obstructive pulmonary disease, u nspecified COPD type (HCC) (Primary Dx); SASHA (obstructive sleep apnea); SASHA on CPAP; Benign essential HTN; Hyperlipidemia, unspecified hyperlipidemia type; Type 2 diabetes mellitus with hyperglycemia, 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); Morbid obesity due to excess calories (HCC); Encounter for hepatitis C screening test for low risk patient; Healthcare maintenance; Subclinical hyperthyroidism; Periumbilical abdominal pain 04/07/2018 Office Visit [facility] (walk-in clinic) [address] [facility] [address] [place] [address] Social History Date Tobacco Use Types Packs/Day [...] Signs Reading Time Taken Comments Vital Sign 124/82 04/07/2018 2:09 PM CDT Blood Pressure 79 04/07/2018 2:09 PM CDT Pulse - - Temperature - - Respiratory Rate 93% 04/07/2018 2:09 PM CDT Oxygen Saturation - - Inhaled Oxygen Concentration 101.2 kg (223 lb) 04/07/2018 2:09 PM CDT Weight 157.5 cm (5' 2") 04/07/2018 2:09 PM CDT Height 40.79 04/07/2018 2:09 PM CDT Body Mass Index documented in this encounter Progress Notes * Ebony Sharp MD - 04/07/2018 2:10 PM CDT CC: Follow-up (3 months ); AWV; and Abdominal Pain (knot on abdomen ) HPI : Isiah Benítez is a 67 y.o. female who presents with complaints of Follow-up (3 months ); AWV; and Abdominal Pain (knot on abdomen ) 1. DM2 - Last a1c was at 7.5. 2.COPD - she had been taking Breo and it has been useful for her breathing. 3.Obesity - she is wanting to get a weight loss surgery. She has not always had reliable transportation. 4. HTN - controlled 5. HLD - taking simva and doing well. 6. MATA - stable with celexa. Medicare Annual Wellness: Patient Care Team: Ebony Sharp MD as PCP - General (Internal Medicine) Ebony Sharp MD as PCP - Eliecer Rosenberg MA as [employer] News Reporter The patients demographics, including age, gender, race, [...] following best describes your ability to hear?: Slightly Decreased Do you wear a hearing aid?: No During the last 12 months, have you experienced confusion or memory loss?: Yes Can you use the telephone?: Yes, without help Can you get to places that are out of walking distance?: Yes, with help Can you go shopping for groceries?: Yes, without help Can you prepare meals?: Yes, without help Can you do your own housework?: Yes, with help Are you able to do laundry?: Yes, with help Do you take your own medications?: Yes, [...] have you felt down, depressed, or hopeless?: 2 I am satisfied with life overall:: Yes I feel stressed regularly:: Yes I experience anger regularly:: Yes I feel lonely regularly:: No I regularly experience physical pain:: Yes I usually feel fatigued:: Yes Has your food intake declined over the past 3 months due to loss of appetite, di gestive problems, chewing or swallowing difficulties?: No Have you had unintentional weight loss during the past 3 months?: No Describe your current diet:: Low Salt;Low Sugar Do you use dental floss?: No Do you visit the dentist regularly?: No Do you wear dentures?: No How many times a day do you brush your teeth: : 1 Type of Exercise: Walking How many times per week do you exercise?: 7 How many minutes do you exercise per session?: 15 Weekly Exercise (Minutes/Week): 105 Advance Directive?: Yes PHQ-9: Over the last 2 weeks, how often have you been bothered by any of the following problems? Little Interest or Pleasure in Doing Things: 2 Feeling Down, Depressed, or Hopeless: 3 Trouble falling or staying asleep, or sleeping too much: 3 Feeling tired or having little energy: 3 Poor appetite or overeatin Feeling bad about yourself - or that you are a failure or have let yourself or y our family down: 2 Trouble concentrating on things, such as reading the newspaper or watching telev ision: 2 Moving or speaking so slowly that other people could have noticed. Or the opposi te - being so fidgety or restless that you have been moving around a lot more th an usual: 2 Thoughts that you would be better off , or of hurting yourself in some way: 0 PHQ-9 Total Score: 20 I have reviewed the above PHQ-9 with the patient. ALLERGIES: Allergies Allergen Reactions Lisinopril Anaphylaxis Metformin Anaphylaxis Sulfa (Sulfonamide Antibiotics) Hives CURRENT MEDICATIONS: Current Outpatient Prescriptions Medication Sig Dispense Refill albuterol (VENTOLIN HFA) 90 mcg/actuation HFA inhaler INHALE 1 PUFF EVERY 4 HOURS NEEDED FOR WHEEZING 18 g 2 amitriptyline (ELAVIL) 25 MG tablet Take 1 tablet (25 mg total) by mouth nig htly. 90 tablet 1 amLODIPine (NORVASC) 2.5 MG tablet Take 2 tablets (5 mg total) by mouth eve y. Take one daily. 180 tablet 1 BREO ELLIPTA 200-25 mcg/dose INHALER INHALE 1 PUFF BY MOUTH DAILY 60 each 3 citalopram (CELEXA) 20 mg tablet Take 1 tablet (20 mg total) by mouth daily. 90 tablet 1 cyclobenzaprine (FLEXERIL) 10 MG tablet Take 1 tablet by mouth daily. 0 docusate sodium (COLACE) 100 MG capsule Take 1 capsule (100 mg total) by tanna th 2 (two) times a day as needed for constipation (first line therapy with polye thlene glycol). 60 capsule 0 gabapentin (NEURONTIN) 300 MG capsule Take 2 capsules (600 mg total) by mout h 3 (three) times a day. 540 capsule 1 insulin glargine (LANTUS) 100 unit/mL injection Inject 15 Units under the sk in nightly. 10 mL 0 insulin syringe (Affectiva ULTRA-FINE) 0.3 mL 31 gauge x 5/16 Inject under the skin daily. use as directed 100 each 0 metoprolol tartrate (LOPRESSOR) 100 MG tablet [...] SUMMARY: Lab Results Component Value Date WBC 8.81 11/18/2017 HGB 14.3 11/18/2017 HCT 42 11/18/2017 PLT 173 11/18/2017 CHOL 193 04/08/2017 TRIG 182 (H) 04/08/2017 HDL 54 04/08/2017 ALT 41 11/18/2017 AST 41 11/18/2017 NA 142 11/18/2017 K 4.4 11/18/2017 CL 103 11/18/2017 BUN 15 11/18/2017 CO2 29 11/18/2017 TSH 0.35 (L) 04/08/2017 INR 1.0 08/29/2017 HGBA1C 7.5 (H) 07/09/2017 MICROALBUR 10.40 04/08/2017 SOCIAL HISTORY: Social History [...] HEALTH MAINTENANCE: Health Maintenance Topic Date Due Hepatitis C Screen 1950 Spirometry # 1950 Diabetes Mellitus Ophthalmology Exam 1950 Diabetes Mellitus Foot Exam 1962 Zoster Vaccine# (1 of 2) 2002 Mammogram Screening 01/05/2013 Pneumococcal Immunization 65+ (1 of 2 - PCV13) 2017 Diabetes Mellitus Hemoglobin A1C 01/06/2018 Medicare Annual Wellness 04/08/2018 Lipid Screening 04/08/2018 Diabetes Mellitus Urine Microalbumin 04/08/2018 Influenza Vaccine (1) 06/23/2018 Depression Screening PHQ-9 # 04/07/2019 Fall Risk Assessment # 04/07/2019 Colorectal Screening via Colonoscopy 12/24/2019 Osteoporosis Screening 03/18/2021 Td # Excluded Immunization History Administered Date(s) Administered Influenza QIV (IM) 05/09/2016, 07/09/2017 Pneumococcal Polysaccharide 23-Valent 05/09/2016 Review of Systems Constitutional: Positive for unexpected weight change (gain). Respiratory: Negative. Cardiovascular: Negative. Gastrointestinal: Negative. Musculoskeletal: Negative. Psychiatric/Behavioral: Negative. OBJECTIVE Vitals: 04/07/18 1409 BP: 124/82 Pulse: 79 SpO2: 93% Weight: 101.2 kg (223 lb) Height: 1.575 m (5' 2") Estimated body mass index is 40.79 kg/m as calculated from the following: Height as of this encounter: 1.575 m (5' 2"). Weight as of this encounter: 101.2 kg (223 lb). Physical Exam Constitutional: She appears well-developed and well-nourished. HENT: Head: Normocephalic and atraumatic. Cardiovascular: Normal rate, regular rhythm and normal heart sounds. Pulmonary/Chest: Effort normal and breath sounds normal. Abdominal: There is tenderness (to the left of umbilicus). Neurological: She is alert. No sensory deficit. Skin: Skin is warm and dry. Psychiatric: She has a normal mood and affect. Her behavior is normal. Nursing note and vitals reviewed. ASSESSMENT/PLAN: Isiah was seen today for follow-up, awv and abdominal pain. Diagnoses and all orders for this visit: Chronic obstructive pulmonary disease, unspecified COPD type (HCC) SASHA (obstructive sleep apnea) SASHA on CPAP Benign essential HTN Hyperlipidemia, unspecified hyperlipidemia type - Lipid Panel; Future - Comprehensive Metabolic Panel; Future Type 2 diabetes mellitus with hyperglycemia, with long-term current use of insul in (HCC) - Hemoglobin A1C; Future Morbid obesity due to excess calories (HCC) Encounter for hepatitis C screening test for low risk patient - Hepatitis C Antibody; Future Healthcare maintenance - MA Mammogram screening w CAD bilat; Future Subclinical hyperthyroidism - Thyroid Stimulating Hormone; Future - T4 Free; Future Periumbilical abdominal pain - CT Abdomen Pelvis w contrast; Future 1. Hernia to the left of the umbilicus - she is having pain right now - will re libia her for CT abdomen. 1. DM2 - due for lab recheck. Last time that she was here, she could not give s ample (because she was too dehydrated). 2.COPD - continue Breo and doing well. No change. 3.Obesity - she is ready to see the bariatric doctor. I will send her for the C T abd for the hernia. If she does have one, I think sending her to Dr. Bebeto huertas be good as he could eval her hernia and maybe talk to her about bariatrics. 4. HTN - well controlled. No change. 5. HLD - due for the lipid check now. 6. MATA - stable with celexa and doing well. Back in 3-4 months. Ebony Sharp MD documented in this encounter Plan of Treatment Care Team Description Date [place] [address] [place] [address] [phone] 02/29/2020 Office Visit Urology Order Schedule Name Type Priority Associated Diag noses 1 Occurrences starting 04/07/2018 until 05/22/2019 MA Mammogram screening w Imaging Routine Healt hcare maintenance CAD bilat documented as of this encounter Results * CT Abdomen Pelvis w contrast (04/10/2018 10:34 AM CDT) Specimen Impressions Performed At Tiny fat-containing left periumbilical hernia [facility] ON No acute CT abnormality within the abdo men or pelvis Nonobstructing left renal calculus READING SITE: [facility] Imaging Narrative Performed At Patient: ISIAH BENÍTEZ Sex#: F # [id number] Jose#: [id number] Location: [facility] CT Procedure Requested: [id number] CT ABDOM EN PELVIS W CONTRAST Reason [...] 7:00 AM CDT Patient: ISIAH BENÍTEZ Sex#: F # [id number] Jose#: [id number] Location: [facility] CT Procedure Requested: [id number] CT ABDOMEN PELVIS W CONTRAST Reason for [...] pelvis Nonobstructing left renal calculus READING SITE: [facility] Imaging Performing Organization Address City/State/Zipcode Ph one Number LEVI * Comprehensive Metabolic Panel (04/07/2018 3:03 PM CDT) Sodium 138 133 - 147 MEQ/L [facility] Potassium 4.1 3.5 - 5.3 MEQ/L [facility] Chloride 98 96 - 112 MEQ/L [facility] Carbon Dioxide 34 (H) 20 - 32 MEQ/L [facility] Anion Gap 6 5 - 17 [facility] Calcium 9.2 8.4 - 10.5 mg/dL [facility] Glucose 128 (H) 70 - 100 mg/dL [facility] Protein Total 7.8 6.0 - 8.2 g/dL [facility] Serum [facility] Albumin 4.2 3.5 - 5.0 g/dL [facility] Alkaline 88 42 - 140 IU/L [facility] Phosphatase [facility] Alanine 27Comment: ALT reference range 0 - 34 IU/L [facility] Aminotransferas changed on 03-01-2018 REGIONAL e LABORATORIES Aspartate 31 15 - 46 IU/L [facility] Aminotransferas [facility] e [facility] Bilirubin Total 0.3 0.2 - 1.3 mg/dL [facility] Blood Urea 19 7 - 26 mg/dL [facility] Nitrogen [facility] Creatinine 0.7 0.4 - 1.1 mg/dL [facility] eGFR Female AA 101 60 - 200 [facility] Comment: REGIONAL Chronic Kidney Disease less LABORATORIES than 60 mL/min/1.73 sq.m Kidney failure less than 15 mL/min/1.73 sq.m eGFR Female 84 60 - 200 [facility] Non-AA Comment: REGIONAL Chronic Kidney Disease less LABORATORIES than 60 mL/min/1.73 sq.m Kidney failure less than 15 mL/min/1.73 sq.m Specimen Blood Performing Organization Address [facility] one Number [address] [address] LABORATORIES * T4 Free (04/07/2018 3:03 PM CDT) T4 Free 1.2 0.8 - 2.2 ng/dL [facility] Specimen Blood Performing Organization Address [facility] Ph one Number [address] [phone] LABORATORIES * Thyroid Stimulating Hormone (04/07/2018 3:03 PM CDT) Thyroid 0.09 (L) 0.47 - 4.68 uIU/mL [facility] Stimulating [facility] Hormone LABORATORIES Specimen Blood Performing Organization Address [facility] one Number [facility] [address] [address] LABORATORIES * Hemoglobin A1C (04/07/2018 3:03 PM CDT) Hemoglobin A1C 8.2 (H) 4.0 - 5.6 % [facility] Comment: REGIONAL Non-diabetic 4.0 - LABORATORIES 5.6 % Prediabetes 5.7 - 6.4 % Diabetes >= 6.5 % Specimen Blood Performing Organization Address [facility] one Number [facility] [address] [address] LABORATORIES * Lipid Panel (04/07/2018 3:03 PM CDT) Cholesterol 244 (H) 100 - 200 mg/dL [facility] HDL Cholesterol 59 40 - 110 mg/dL [facility] Non-HDL 185 (H) 0 - 130 mg/dL [facility] Cholesterol [facility] Triglycerides 142 0 - 150 mg/dL [facility] LDL Cholesterol 157 (H) 0 - 99 mg/dL [facility] Cholesterol/HDL 4.1 0.0 - 4.5 [facility] Ratio REG[facility]AL LABORATORIES Specimen Blood Performing Organization Address [facility] one Number [facility] [address] [address] LABORATORIES * Hepatitis C Antibody (04/07/2018 3:03 PM CDT) Hepatitis C Ab Reactive (A) Non-reactive [facility] SCO Ratio 3.89Comment: S/CO ratio <10.0 [facility] may indicate a false positive REGIONAL HCV antibody, especially in LABORATORIES low risk populations. Confirmation by HCV PCR is recommended. Contact Client Services. Specimen Blood Performing Organization Address [facility] Ph one Number [facility] [address] [phone] LABORATORIES documented in this encounter Visit Diagnoses Diagnosis Chronic obstructive pulmonary disease, unspecified COPD type (HCC) SASHA (obstructive sleep apnea) Obstructive sleep apnea (adult) (pediat amita) SASHA on CPAP Benign essential HTN Hyperlipidemia, unspecified hyperlipide prasanna type Type 2 diabetes mellitus with hyperglyc emia, 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) Morbid obesity due to excess calories ( HCC) Encounter for hepatitis C screening althea t for low risk patient Healthcare maintenance Subclinical hyperthyroidism Thyrotoxicosis without mention of goite r or other cause, without mention of thyrotoxic crisis or storm Periumbilical abdominal pain Abdominal pain, periumbilic documented in this encounter Additional Health Concerns Resolved Time Infection Noted Time 04/19/2018 12:13 PM CDT Influenza 08/30/2017 10:13 AM TOUCHER UP documented as of this encounter
--- OUTSIDE RECORDS SUMMARY | 2019-11-28 22:24 | XMS REPORT | Encounter Summary ---
Author Author [facility] Organization [facility] Address Unknown Phone Unavailable Care Team Providers Care Accounts Payable Accountant Name Role Phone Ebony Sharp MD PCP Encounter Details Care Team Description Date Type Department Adelaida Olivas MD [address] [facility] [address] [place] [address] 03/24/2018 [facility] [address] [facility] [address] [place], [place] [id number] Social History Date Tobacco Use Types Packs/Day [...] as of this encounter Miscellaneous Notes * Clinic Note - Adelaida Olivas MD - 03/24/2018 12:29 PM CDT Phone Note Call from Patient Summary of call: Patient is calling for a refill of her Tylenol #4. 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 Please call her when it is ready Call taken by: Cecilia Tavarez on March 24, 2018 12:30 PM Follow-up for Phone Call Follow-up Details: Did not fill prescription, suggested OTC Tylenol and Naproxen . 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
--- OUTSIDE RECORDS SUMMARY | 2019-11-28 22:24 | XMS REPORT | Encounter Summary ---
Author Author [facility] Organization [facility] Address Unknown Phone Unavailable Care Team Providers Care Shredding Machine Tender Name Role Phone Ebony Sharp MD PCP Encounter Details Care Team Description Date Type Department Ebony Sharp MD [address] [facility] [address] [place] [address] [phone] 12/07/2017 Documentation [facility] (walk-in clinic) [address] [facility] [address] [place], [place] [phone] Social History Date Tobacco Use Types Packs/Day [...] Description Date [place] [address] [place] [address] [phone] 02/29/2020 Office Visit Urology documented as of this encounter Visit Diagnoses Not on filedocumented in this encounter Additional Health Concerns Resolved Time Infection Noted Time 04/19/2018 12:13 PM CDT Influenza 08/30/2017 10:13 AM MANAGER HAIR documented as of this encounter
--- OUTSIDE RECORDS SUMMARY | 2019-11-28 22:24 | XMS REPORT | Encounter Summary ---
Author Author [facility] Organization [facility] Address Unknown Phone Unavailable Care Team Providers Care Surgical Coder Name Role Phone Ebony Sharp MD PCP Reason for Visit * Reason Comments Follow-up eldon left ankle [id number]: Appt. Reminder (02/08/2018 06:41 PM) Phone Call - Message Delivered (X=Answe ring Machine) Encounter Details Care Team Description Date Type Department Adelaida Olivas MD [address] [facility] [address] [place] [address] [phone] 02/10/2018 Hist[facility]Appointmen [facility] [address] 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
--- OUTSIDE RECORDS SUMMARY | 2019-11-28 22:24 | XMS REPORT | Encounter Summary ---
Author Author [facility] Organization [facility] Address Unknown Phone Unavailable Care Team Providers Care Ceiling Installer Name Role Phone Ebony Sharp MD PCP Reason for Visit * Reason Comments Hip Pain LEG PAIN NOTED TO RIGHT LEG SHE FELL 2 WEEKS AGO AND NOTED PAIN TO RIGHT SIDE AND DOWN RIGHT LEG FROM HIP. Encounter Details Care Team Description Date Type Department Gege Jeff MD [address] [place] [address] [phone] Pain of right hip joint (Primary Dx) 11/25/2017 Emergency [facility] [address], [place] [id number] Social History Date Tobacco Use Types Packs/Day [...] Signs Reading Time Taken Comments Vital Sign 138/76 11/25/2017 11:24 PM CDT Blood Pressure 80 11/25/2017 11:24 PM CDT Pulse 36.9 C (98.4 F) 11/25/2017 7:24 PM CDT Temperature 18 11/25/2017 11:24 PM CDT Respiratory Rate 96% 11/25/2017 11:24 PM CDT Oxygen Saturation - - Inhaled Oxygen Concentration 95.7 kg (211 lb) 11/25/2017 7:24 PM CDT Weight 157.5 cm (5' 2") 11/25/2017 7:24 PM CDT Height 38.59 11/25/2017 7:24 PM CDT Body Mass Index documented in this encounter Discharge Instructions * Instructions* Gege Jeff MD - 11/25/2017 No specific cause of your symptoms could be found. There was no evidence of a b roken bone. Your symptoms could be related to a contusion or possibly sciatica. I think it is safe to send you home. Use the medications as needed. Rest and follow-up with your primary physician or ortho. Return to the emergency depart ment at anytime for new or worsening symptoms or any other concerns. * Attachments The following attachments cannot be sent through Care Everywhere.* Hip, How it Works (Burmese) * PAIN, UNCERTAIN CAUSE (ACUTE) (ARGENTINE) * SCIATICA (ARGENTINE) * R.I.C.E. (Burmese) documented in this encounter Medications at Time [...] OXYGEN THERAPY 2 L/min as 0 needed. 11/25/2017 12/25/2017 HYDROcodone-acetaminophen Take 1 tablet 12 tablet 0 (NORCO) 5-325 mg per by mouth tablet every 6 (six) hours as needed. 11/25/2017 12/05/2017 ibuprofen (ADVIL,MOTRIN) Take 1 tablet 30 tablet 0 600 MG tablet (600 mg total) by mouth every 8 (eight) hours as needed. 08/26/2017 08/28/2019 albuterol (VENTOLIN HFA) INHALE 1 PUFF 18 g 2 90 mcg/actuation HFA EVERY 4 HOURS inhaler NEEDED FOR WHEEZING 08/26/2017 04/26/2018 amitriptyline (ELAVIL) 25 Take 1 tablet 90 tablet 1 MG tablet (25 mg total) by mouth nightly. 08/26/2017 01/06/2018 amLODIPine (NORVASC) 2.5 Take 2 90 tablet 0 MG tablet tablets (5 mg total) by mouth daily. Take one daily. 08/26/2017 04/26/2018 citalopram (CELEXA) 20 mg Take 1 tablet 90 tablet 1 tablet (20 mg total) by mouth daily. 04/12/2017 03/08/2019 docusate sodium (COLACE) Take 1 60 capsule 0 100 MG capsule capsule (100 mg total) by mouth 2 (two) times a day as needed for constipation (first line therapy with polyethlene glycol). 08/26/2017 01/06/2018 fluticasone-vilanterol Inhale 1 puff 60 each 2 (BREO ELLIPTA) 200-25 daily. mcg/actuation INHALER 08/26/2017 01/06/2018 gabapentin (NEURONTIN) Take 1 270 capsule 1 300 MG capsule capsule (300 mg total) by mouth 3 (three) times a day. 09/01/2017 01/06/2018 hydrocodone-guaifenesin Take 5 118 mL 0 2.5-200 mg/5 mL Soln mL/1.7m2 by mouth every 8 (eight) hours as needed. 08/26/2017 04/20/2018 insulin glargine (LANTUS) Inject 15 10 mL 0 100 unit/mL injection Units under the skin nightly. 08/26/2017 01/06/2018 metoprolol tartrate Take 1 tablet 180 tablet 0 (LOPRESSOR) 100 MG tablet (100 mg total) by mouth 2 (two) times a day. 08/26/2017 01/13/2019 simvastatin (ZOCOR) 20 MG Take 1 tablet 90 tablet 1 tablet (20 mg total) by mouth nightly. documented as of this encounter ED Notes * Gege Jeff MD - 11/25/2017 10:09 PM CDT 11/25/2017 [facility] History Chief Complaint Patient presents with Hip Pain LEG PAIN NOTED TO RIGHT LEG SHE FELL 2 WEEKS AGO AND NOTED PAIN TO RIGHT SIDE AND DOWN RIGHT LEG FROM HIP. Patient is a 67-year-old female who presents to the emergency department with th e chief complaint of right hip pain. She states she fell onto her right hip ove r a week ago. She has had ongoing pain since then. She thinks it is getting wo rse instead of better. Worse with movement and bearing weight. She states some times it will radiate from the hip down her thigh towards the knee. She has use d leftover Tylenol 3 without any improvement. Symptoms persisted so she came to the emergency department for evaluation. No associated numbness, tingling, or weakness. She has some pain to her buttock but no true back pain. No incontine nce. No fevers. The history is provided by the patient and a relative. Hip Pain This is a new problem. The current episode started 1 to 4 weeks ago. The problem has been unchanged. Associated symptoms include arthralgias (right hip). Pertin ent negatives include no abdominal pain, change in bowel habit, chest pain, feve r, neck pain, numbness or weakness. The symptoms are aggravated by walking. Elizabeth gayle tried: Tylenol 3. The treatment provided mild relief. Past Medical History: Diagnosis Date Allergic rhinitis Anxiety Bronchitis, chronic (HCC) Cataract 2011, 2012 bilat cateract surgery Chronic pain disorder back, ribs, and ankle. COPD (chronic obstructive pulmonary disease) (HCC) Depression Diabetes mellitus, type II (HCC) Endometriosis Fractures [address] in Left ankle Hyperlipidemia Hypertension Obesity On home oxygen therapy [...] ANKLE ARTHRODESIS; Surgeon: Adelaida Olivas MD; Location: [facility]; Service: Orthopedics; Later ality: Left; [...] year Review of Systems Constitutional: Negative for fever. Respiratory: Negative for shortness of breath. Cardiovascular: Negative for chest pain. Gastrointestinal: Negative for abdominal pain and change in bowel habit. Musculoskeletal: Positive for arthralgias (right hip). Negative for back pain an d neck pain. Skin: Negative for wound. Neurological: Negative for weakness and numbness. All other systems reviewed and are negative. Physical Exam BP (!) 142/84 | Pulse 79 | Temp 36.9 C (98.4 F) (Oral) | Resp 15 | Ht 1. 575 m (5' 2") | Wt 95.7 kg (211 lb) | SpO2 91% | BMI 38.59 kg/m Weight Method: Stated Physical Exam Constitutional: She is oriented to person, place, and time. She appears well-dev eloped. No distress. HENT: Head: Normocephalic and atraumatic. Eyes: Conjunctivae are normal. Neck: Normal range of motion. Neck supple. Cardiovascular: Normal rate, regular rhythm, normal heart sounds and intact dist al pulses. Pulmonary/Chest: Effort normal. No respiratory distress. Abdominal: Soft. Bowel sounds are normal. She exhibits no distension and no puls atile midline mass. There is no tenderness. Musculoskeletal: Normal range of motion. She exhibits no edema. Right hip: She exhibits tenderness. She exhibits normal range of motion and no deformity. Cervical back: Normal. Thoracic back: Normal. Lumbar back: Normal. Legs: Mild right lateral hip and inguinal tenderness. Also tender to a lesser extend t o the posterior aspect of the hip. No deformity. Full ROM. No tenderness distall y in the leg. Compartments soft. Palpable pulses. Neurological: She is alert and oriented to person, place, and time. No cranial n erve deficit. No saddle anesthesia. Normal great toe dorsiflexion. Skin: Skin is warm and dry. No rash noted. No erythema. Psychiatric: She has a normal mood and affect. Her behavior is normal. Nursing note and vitals reviewed. ED Course Procedures CT Abdomen Pelvis wo contrast Preliminary Result No organ injuries or internal hemorrhage. No fractures. Minor findings described above. EXAM: CT Lumbar Spine Without Intravenous Contrast EXAM DATE/TIME: 11/25/2017 10:32 PM CLINICAL HISTORY: 67 years. female. Pain; Abdominal pain; Acute; Low back pain; Additional info: Pain after fall a week ago. . TECHNIQUE: Axial computed tomography images of the lumbar spine without intravenous contrast. Coronal and sagittal reformatted images were created and reviewed. COMPARISON: No relevant prior studies available. FINDINGS: Vertebrae: Normal vertebral alignment. No evidence of fracture. Severe lower lumbar degenerative facet joint arthritis. Discs/spinal canal/neural foramina: No significant degenerative disc disease. Soft tissues: No paraspinal or retroperitoneal hematoma. IMPRESSION: Lumbar facet joint arthritis. No lumbar spine fracture. THIS DOCUMENT HAS BEEN ELECTRONICALLY SIGNED BY EDUARDO WHEELER XR Hip 2 views with Pelvis right ED Interpretation No acute fx. CT Lumbar Spine reconstructed (Results Pending) [facility] 2316-patient is neurovascularly intact and hemodynamically stable. Initial read of hip x-ray negative for fracture per my interpretation. She had ongoing disc omfort. Due to her age, additional imaging was obtained. CT scans negative for fracture or any other acute process. Ultrasound negative for DVT. Patient yassine ears relieved. She is feeling much better after the IM morphine that she had re quested. Potentially just a contusion or sciatica possibility as well. Patient states Tylenol 3 she has at home are not helping. Prescriptions given for #12 Merkel and motrin. Patient to follow-up with her primary physician and orthopedi c surgery. Return precautions discussed. The patient's vitals signs are BP (!) 142/84 | Pulse 79 | Temp 36.9 C (98.4 F) (Oral) | Resp 15 | Ht 1. 575 m (5' 2") | Wt 95.7 kg (211 lb) | SpO2 91% | BMI 38.59 kg/m The labs from this visit are No results found for this or any previous visit (from the past 24 hour(s)). The final diagnosis is SNOMED CT(R) 1. Pain of right hip joint PAIN IN RIGHT HIP JOINT Ebony Sharp MD [address] [facility] [address] [facility] [address] Schedule an appointment as soon as possible for a visit [facility] [address] [facility] [place] [address] [facility] [address] Schedule an appointment as soon as possible for a visit ED Clinical Impression 1. Pain of right hip joint Patient ED Dispo ED Disposition Discharge Gege Jeff MD 11/26/17 0350 * Vashti Fritz RN - 11/25/2017 8:47 PM CDT Pt presents to ED via POV with reports of right leg pain from hip to knee. Pt re ports pain occurred after fall 2 weeks ago in basement. Pt reports she fell back [place] after looking in deep freeze. Pt reports hitting head and landing on right side. Pt denies head pain today. Pt denies loss of consciousness. Pt reports samuel n was delayed and began worsening a few days ago. Pt reports inability to move l eg. Pt was able to lift leg to remove pants. 2+ distal pulse in right foot. Adeq uate cap refill. * Thania Munoz RN - 11/25/2017 7:25 PM CDT RIGHT LEG PAIN NOTED SINCE FALL 2 WEEKS AGO AND NOTED RIGHT LEG PAIN HAS INCREAS ED AND SHE CAN NOT BEAR WEIGHT ON RIGHT SIDE. documented in this encounter Plan of Treatment Care Team Description Date [place] [address] [place] [address] [phone] 02/29/2020 Office Visit Urology documented as of this encounter Procedures Comments Procedure Name Priority Date/Time Associated Diag nosis US VENOUS DUPLEX LOWER STAT 11/25/2017 EXTREMITY RIGHT 11:[address] LUMBAR SPINE STAT 11/25/2017 RECONSTRUCTED 10:[address] ABDOMEN PELVIS WO STAT 11/25/2017 CONTRAST 10:43 PM CDT XR HIP 2 VIEWS WITH STAT 11/25/2017 PELVIS RIGHT 9:42 PM CDT documented in this encounter Results * US Venous Duplex Lower Extremity right (11/25/2017 11:07 PM CDT) Specimen Impressions Performed At Impression: [facility] No evidence of DVT in the right lower e xtremity. ATTESTATION STATEMENT: The Staff Radiologist has personally re viewed the images and dictated, reviewed, or edited the final report. READING SITE: [facility] Narrative Performed At Patient: ISIAH BENÍTEZ Sex#: F # [id number] Jose#: [id number] Location: [facility] SED-13 Procedure Requested: [id number] US VENOU S DUPLEX LOWER EXTREMITY RIGHT Reason for Exam: leg pain Exam Ordered: 11/25/2017 221 8 Exam Date/Time: 11/25/20172306 Begin exam date/time: 11/25/20172248 Exam: US VENOUS DUPLEX LOWER EXTREMIT Y RIGHT Indication: leg pain Technique: Color-flow and pulsed wave duplex ultrasound with compression of venous structures of the right lower extremity. Comparison: None Available. Findings: Duplex ultrasound with compre ssion of the deep venous structures of the right lower extremity from the common femoral vein through the popliteal vein is negative for DVT. The posterior tibial and peroneal veins are segmentally visualiz ed and patent where seen. Normal venous waveforms and augmentation are n oted throughout. Procedure Note Interface, Rad Results In - 11/26/2017 9:19 AM CDT Patient: ISIAH BENÍTEZ Sex#: F # [id number] Jose#: [id number] Location: [facility] SED-13 Procedure Requested: [id number] US VENOUS DUPLEX LOWER EXTREMITY RIGHT Reason for Exam: leg pain Exam Ordered: 11/25/2017 2218 Exam Date/Time: 11/25/20172306 Begin exam date/time: 11/25/20172248 Exam: US VENOUS DUPLEX LOWER EXTREMITY RIGHT Indication: leg pain Technique: Color-flow and pulsed wave duplex ultrasound with compression of venous structures of the right lower extremity. Comparison: None Available. Findings: Duplex ultrasound with compression of the deep venous structures of the right lower extremity from the common femoral vein through the popliteal vein is negative for DVT. The posterior tibial and peroneal veins are segmentally visualized and patent where seen. Normal venous waveforms and augmentation are noted throughout. IMPRESSION Impression: No evidence of DVT in the right lower extremity. ATTESTATION STATEMENT: The Staff Radiologist has personally reviewed the images and dictated, reviewed, or edited the final report. READING SITE: [facility] Performing Organization Address City/State/Zipcode Ph one Edgar SIMS * CT Lumbar Spine reconstructed (11/25/2017 10:43 PM CDT) Specimen Impressions Performed At 1. No acute osseous abnormality of the lumbar spine. LEVI 2. Degenerative changes worst at L3-L4 cause severe spinal canal narrowing at this level. Consider furth er evaluation with lumbar spine MRI if clinically indicated. The findings are in general agreement w ith those in the preliminary report provided by [facility]. READING SITE: [facility]. ATTESTATION STATEMENT: The Staff Radiologist has personally re viewed the images and dictated, reviewed, or edited the final report. Narrative Performed At Patient: ISIAH BENÍTEZ Sex#: F # 1950 Jose#: [id number] Location: [facility] SED-13 Procedure Requested: [id number] CT LUMBA R SPINE RECONSTRUCTED Reason for Exam: pain after a fall a week ago Exam Ordered: 11/25/2017 221 9 Exam Date/Time: 11/25/2017 2243 Begin exam date/time: 11/25/[address] LUMBAR SPINE RECONSTRUCTED Date: 11/25/2017 10:45 PM Indication: Low back and left hip aft er a fall a week ago Comparison: Lumbar spine radiographs 10/08/2016. Technique: Helical CT images of the l umbar spine were obtained without contrast. Coronal and sagittal reformat lexis images were also performed. One or more of the following dose reduc tion techniques were utilized: Automated exposure control (AEC), Adjus tment of mA and/or kV according to patient size, Use of iterative recon struction technique such as ASiR, CT scan done according to ALARA and solo ge gently/image wisely. Findings: Lumbar lordosis is maintained. Trace an terolisthesis of L3 on L4 and L4 on L5. No acute fracture. Vertebral bod y heights are maintained without compression deformity. Multilevel mild degenerative disc disease and disc space height loss in combination w ith severe lower lumbar facet arthropathy causes severe spinal canal and neuroforaminal narrowing at L3-L4 No aggressive lytic or blastic os seous lesion. Right anterior epidural fat at L2-L3 wh ich causes right lateral recess narrowing at this level. Multilevel dis c bulges and severe facet arthropathy cause multilevel mild spina l canal narrowing and at least multilevel moderate neuroforaminal narr owing. See concurrent CT abdomen and pelvis re port for respective details. Procedure Note Interface, Rad Results In - 11/28/2017 11:26 AM CDT Patient: ISIAH BENÍTEZ Sex#: Paulina # 1950 Jose#: [id number] Location: [facility] SED-13 Procedure Requested: [id number] CT LUMBAR SPINE RECONSTRUCTED Reason for Exam: pain after a fall a week ago Exam Ordered: 11/25/20172218 Exam Date/Time: 11/25/20172242 Begin exam date/time: 11/25/20172231 CT LUMBAR SPINE RECONSTRUCTED Date: 11/25/2017 10:45 PM Indication: Low back and left hip after a fall a week ago Comparison: Lumbar spine radiographs 10/08/2016. Technique: Helical CT images of the lumbar spine were obtained without contrast. Coronal and sagittal reformatted images were also performed. One or more of the following dose reduction techniques were utilized: Automated exposure control (AEC), Adjustment of mA and/or kV according to patient size, Use of iterative reconstruction technique such as ASiR, CT scan done according to ALARA and image gently/image wisely. Findings: Lumbar lordosis is maintained. Trace anterolisthesis of L3 on L4 and L4 on L5. No acute fracture. Vertebral body heights are maintained without compression deformity. Multilevel mild degenerative disc disease and disc space height loss in combination with severe lower lumbar facet arthropathy causes severe spinal canal and neuroforaminal narrowing at L3-L4 No aggressive lytic or blastic osseous lesion. Right anterior epidural fat at L2-L3 which causes right lateral recess narrowing at this level. Multilevel disc bulges and severe facet arthropathy cause multilevel mild spinal canal narrowing and at least multilevel moderate neuroforaminal narrowing. See concurrent CT abdomen and pelvis report for respective details. IMPRESSION 1. No acute osseous abnormality of the l umbar spine. 2. Degenerative changes worst at L3-L4 c ause severe spinal canal narrowing at this level. Consider further evaluation with lumbar spine MRI if clinically indicated. The findings are in general agreement with those in the preliminary report provided by [facility]. READING SITE: [facility]. ATTESTATION STATEMENT: The Staff Radiologist has personally reviewed the images and dictated, reviewed, or edited the final report. Performing Organization Address City/State/Zipcode Ph one Number LEVI * CT Abdomen Pelvis wo contrast (11/25/2017 10:43 PM CDT) Specimen Impressions Performed At 1. No CT evidence of traumatic organ injury within th e abdomen or [facility]I pelvis. 2. Hepatomegaly 3. Nonobstructing left renal calculi ATTESTATION STATEMENT: The Staff Radiologist has personally re viewed this study and agrees with the findings in this report. READING SITE: [facility] Narrative Performed At Patient: ISIAH BENÍTEZ Sex#: F # 1950 Jose#: [id number] Location: [facility] SED-[facility] Procedure Requested: [id number] CT ABDOM EN PELVIS WO CONTRAST Reason for Exam: pain after fall a we ek ago Exam Ordered: 11/25/2017 221 8 Exam Date/Time: 11/25/2017 2243 Begin exam date/time: 11/25/20172231 CT ABDOMEN PELVIS WO CONTRAST INDICATION: Right-sided pain after fall 2 weeks prior. TECHNIQUE: CT of the abdomen and pelvis without contrast. Coronal and sagittal reformatted images were perfor [facility]. COMPARISON: 02/04/2017. FINDINGS: No free air, free fluid, or f luid collection. Lower chest: The visualized lower lungs are aerated. Bibasilar subsegmental atelectasis. Lingular calc ified granuloma. No pleural or pericardial effusion. The heart is norm al size. ABDOMEN: Liver: Liver is enlarged measuring up t o 20.8 cm craniocaudad. No low attenuation lesions. Gallbladder and biliary: Cholecystectom y. Normal caliber bile ducts. Spleen: Normal size spleen without low attenuation lesions. Calcified splenic granulomas. Pancreas: The pancreas is normal in att enuation without peripancreatic inflammatory changes. No pancreatic areli t dilation. Adrenal glands: Normal size adrenal gla nds. Kidneys and ureters: Normal size kidney s and ureters. Redemonstration of nonobstructing prominent left lower melani e renal calculus measuring up to 1.4 cm. No hydronephrosis. GI tract, Mesentery: The stomach is und er distended. Normal caliber small bowel. Normal caliber colon. Norm al appendix. Vascular structures: Normal caliber abd ominal aorta. Mild calcified atherosclerosis. Retroperitoneum, Lymph nodes: No lympha denopathy in the abdomen or pelvis. PELVIS: Genitourinary system: Well distended bl adder. Hysterectomy. SKELETAL STRUCTURES AND SOFT TISSUES: N o fracture or destructive lesions in the visualized skeleton. See concurr ent dedicated CT lumbar spine for further evaluation. No acute soft tissu e abnormality. Procedure Note Interface, Rad Results In - 11/26/2017 8:49 AM CDT Patient: ISIAH BENÍTEZ Sex#: Paulina # 1950 Jose#: [id number] Location: [facility] SED-[facility] Procedure Requested: [id number] CT ABDOMEN PELVIS WO CONTRAST Reason for Exam: pain after fall a week ago Exam Ordered: 11/25/20172217 Exam Date/Time: 11/25/20172242 Begin exam date/time: 11/25/20172231 CT ABDOMEN PELVIS WO CONTRAST INDICATION: Right-sided pain after fall 2 weeks prior. TECHNIQUE: CT of the abdomen and pelvis without contrast. Coronal and sagittal reformatted images were performed. COMPARISON: 02/04/2017. FINDINGS: No free air, free fluid, or fluid collection. Lower chest: The visualized lower lungs are aerated. Bibasilar subsegmental atelectasis. Lingular calcified granuloma. No pleural or pericardial effusion. The heart is normal size. ABDOMEN: Liver: Liver is enlarged measuring up to 20.8 cm craniocaudad. No low attenuation lesions. Gallbladder and biliary: Cholecystectomy. Normal caliber bile ducts. Spleen: Normal size spleen without low attenuation lesions. Calcified splenic granulomas. Pancreas: The pancreas is normal in attenuation without peripancreatic inflammatory changes. No pancreatic duct dilation. Adrenal glands: Normal size adrenal glands. Kidneys and ureters: Normal size kidneys and ureters. Redemonstration of nonobstructing prominent left lower pole renal calculus measuring up to 1.4 cm. No hydronephrosis. GI tract, Mesentery: The stomach is under distended. Normal caliber small bowel. Normal caliber colon. Normal appendix. Vascular structures: Normal caliber abdominal aorta. Mild calcified atherosclerosis. Retroperitoneum, Lymph nodes: No lymphadenopathy in the abdomen or pelvis. PELVIS: Genitourinary system: Well distended bladder. Hysterectomy. SKELETAL STRUCTURES AND SOFT TISSUES: No fracture or destructive lesions in the visualized skeleton. See concurrent dedicated CT lumbar spine for further evaluation. No acute soft tissue abnormality. IMPRESSION 1. No CT evidence of traumatic organ inj ury within the abdomen or pelvis. 2. Hepatomegaly 3. Nonobstructing left renal calculi ATTESTATION STATEMENT: The Staff Radiologist has personally reviewed this study and agrees with the findings in this report. READING SITE: [facility] Performing Organization Address City/State/Zipcode Ph one Number LEVI * XR Hip 2 views with Pelvis right (11/25/2017 9:42 PM CDT) Specimen Impressions Performed At 1. No evidence of acute fracture. ABIASHWINJEFFREY 2. Moderate bilateral hip osteoarthriti s. ATTESTATION STATEMENT: The Staff Radiologist has personally re viewed this study and agrees with the findings in this report. READING SITE: [facility] Narrative Performed At Patient: ISIAH BENÍTEZ Sex#: F # 1950 Jose#: [id number] Location: [facility] SED-[facility] Procedure Requested: [id number] XR HIP 2 VIEWS WITH PELVIS RIGHT Reason for Exam: hip/leg pain Exam Ordered: 11/25/2017 0 Exam Date/Time: 11/25/20172141 Begin exam date/time: 11/25/20172120 XR HIP 2 VIEWS WITH PELVIS RIGHT ( AP pelvis, AP and frog-leg views of the right hip): DATE: 11/25/2017 9:42 PM INDICATION: hip/leg pain, fell one we ek prior. COMPARISON: 10/08/2016. FINDINGS: No evidence of acute fracture or hip di slocation is seen. Moderate bilateral hip osteoarthritis, with prom inent marginal osteophytes, subchondral cystic changes, and mild yoana int space narrowing. Small pelvic phleboliths. Lower lumbar spondylosis is noted. Procedure Note Interface, Rad Results In - 11/26/2017 10:04 AM CDT Patient: ISIAH BENÍTEZ Sex#: F # [id number] Jose#: [id number] Location: [facility] [place] [facility] Procedure Requested: [id number] XR HIP 2 VIEWS WITH PELVIS RIGHT Reason for Exam: hip/leg pain Exam Ordered: 11/25/20170 Exam Date/Time: 11/25/20172141 Begin exam date/time: 11/25/20172120 XR HIP 2 VIEWS WITH PELVIS RIGHT (AP pelvis, AP and frog-leg views of the right hip): DATE: 11/25/2017 9:42 PM INDICATION: hip/leg pain, fell one week prior. COMPARISON: 10/08/2016. FINDINGS: No evidence of acute fracture or hip dislocation is seen. Moderate bilateral hip osteoarthritis, with prominent marginal osteophytes, subchondral cystic changes, and mild joint space narrowing. Small pelvic phleboliths. Lower lumbar spondylosis is noted. IMPRESSION 1. No evidence of acute fracture. 2. Moderate bilateral hip osteoarthritis . ATTESTATION STATEMENT: The Staff Radiologist has personally reviewed this study and agrees with the findings in this report. READING SITE: [facility] Organization Address City/State/Zipcode Ph one Number LEVI documented in this encounter Visit Diagnoses Diagnosis Pain of right hip joint documented in this encounter Administered Medications Action Date Dose Rate Site Medication Order MAR Action 11/25/2017 10:20 PM CDT 4 mg Right De ltoid morphine 4 mg/mL injection 4 mg Given 4 mg, Intramuscular, Once, Ju 11/25/17 a t 2219, For 1 dose documented in this encounter Additional Health Concerns Resolved Time Infection Noted Time 04/19/2018 12:13 PM CDT Influenza 08/30/2017 10:13 AM REAL ESTATE SPECIALIST documented as of this encounter
--- OUTSIDE RECORDS SUMMARY | 2019-11-28 22:24 | XMS REPORT | Encounter Summary ---
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 Care Scenic Artist Name Role Phone Ebony Sharp MD PCP Encounter Details Care Team Description Date Type Department Adelaida Olivas MD [address] [facility] [address] [place], [place] [id number] 02/25/2018 [facility] [address] [facility] [address] [place], [place] [id number] Social History Date Tobacco Use Types Packs/Day [...] Clinic Note - Adelaida Olivas MD - 02/25/2018 3:22 PM CDT Phone Note Call from Patient Caller: Patient Summary of call: patient is requesting a refil of Tylenol with Codeine #4. Left message to confirm pharmacy as she indicated a different pharmacy in her message than what is listed in her chart. Call taken by: Cecilia Tavarez on February 25, 2018 3:23 PM Follow-up for Phone Call Follow-up Details: done Prescriptions: TYLENOL WITH CODEINE #4 300-60 MG TABS (ACETAMINOPHEN-CODEINE) 1-2 PO Q 4-6 hour s PRN Pain #40[Tablet] x 0 Entered by: Alice Mello Authorized by: Adelaida Olivas MD Signed by: Alice Mello on 02/28/2018 Method used: [facility] [address] [place] [address] Ph: [phone] Fax: [phone] RxID: [id number] documented in this encounter Plan of Treatment Care Team Description Date [place] [address] [place] [address] [phone] 02/29/2020 Office Visit Urology documented as of this encounter Visit Diagnoses Not on filedocumented in this encounter Additional Health Concerns Resolved Time Infection Noted Time 04/19/2018 12:13 PM CDT Influenza 08/30/2017 10:13 AM DIRECTOR DIGITAL ADVERTISING 08/30/2019 1:09 PM DIRECTOR DIGITAL ADVERTISING Influenza - Rule Out 08/30/2019 11:32 AM DIRECTOR DIGITAL ADVERTISING 09/17/2019 8:17 AM DIRECTOR DIGITAL ADVERTISING RSV 08/31/2019 6:35 PM DIRECTOR DIGITAL ADVERTISING documented as of this encounter
--- OUTSIDE RECORDS SUMMARY | 2019-11-28 22:24 | XMS REPORT | Encounter Summary ---
Author Author [facility] Organization [facility] Address Unknown Phone Unavailable Care Team Providers Care Tour Actor Name Role Phone Ebony Sharp MD PCP Encounter Details Care Team Description Date Type Department Secretary, [facility] 02/10/2018 Hist-Other [facility] [address] [place] [id number] Social History Date Tobacco Use Types Packs/Day [...] Description Date [place] [address] [place] [address] [phone] 02/29/2020 Office Visit Urology documented as of this encounter Procedures Comments Procedure Name Priority Date/Time Associated Diag nosis XR ANKLE Routine 02/10/2018 3:32 PM CDT documented in this encounter Results * XR Ankle (02/10/2018 3:32 PM CDT) Specimen Performing Organization Address City/State/Zipcode Ph one Number LEVI documented in this encounter Visit Diagnoses Not on filedocumented in this encounter Additional Health Concerns Resolved Time Infection Noted Time 04/19/2018 12:13 PM CDT Influenza 08/30/2017 10:13 AM MEDICAL IMAGING SPECIALIST documented as of this encounter
--- OUTSIDE RECORDS SUMMARY | 2019-11-28 22:24 | XMS REPORT | Encounter Summary ---
Author Author [facility] Organization [facility] Address Unknown Phone Unavailable Care Team Providers Care Outside Rigger Name Role Phone Ebony Sharp MD PCP Encounter Details Care Team Description Date Type Department Adelaida Olivas MD [address] [facility] [address] [place] [address] 12/14/2017 [facility] [address] [facility] [address] [place], [place] [id number] Social History Date Tobacco Use Types Packs/Day [...] Clinic Note - Adelaida Olivas MD - 12/14/2017 2:43 PM CDT Phone Note Call from Patient Summary of call: Patient called script line requesting refill on Tylenol #3. Ple ase call patient back at [phone] Call taken by: Brenda Joyner on December 14, 2017 2:46 PM Follow-up for Phone Call Follow-up Details: refilled her Tylenol 4 documented in this encounter Plan of Treatment Care Team Description [place] [address] [place] [address] [phone] 02/29/2020 Office Visit Urology documented as of this encounter Visit Diagnoses Not on filedocumented in this encounter Additional Health Concerns Resolved Time Infection Noted Time 04/19/2018 12:13 PM CDT Influenza 08/30/2017 10:13 AM PHARMACEUTICAL COMPOUNDING SUPERVISOR 08/30/2019 1:09 PM PHARMACEUTICAL COMPOUNDING SUPERVISOR Influenza - Rule Out 08/30/2019 11:32 AM PHARMACEUTICAL COMPOUNDING SUPERVISOR 09/17/2019 8:17 AM PHARMACEUTICAL COMPOUNDING SUPERVISOR RSV 08/31/2019 6:35 PM PHARMACEUTICAL COMPOUNDING SUPERVISOR documented as of this encounter
--- OUTSIDE RECORDS SUMMARY | 2019-11-28 22:24 | XMS REPORT | Encounter Summary ---
Author Author [facility] Organization [facility] Address Unknown Phone Unavailable Care Team Providers Care Enamel Buffer Name Role Phone Ebony Sharp MD PCP Encounter Details Care Team Description Date Type Department Ebony Sharp MD [address] [facility] [address] [place], [place] [phone] Encounter for hepatitis C screening test for low risk patient; Hyperlipidemia, unspecified hyperlipidemia type; Subclinical hyperthyroidism; Type 2 diabetes mellitus with hyperglycemia, 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) 04/07/2018 Lab [facility] [place] [address] [facility] [address] [place], [place] [phone] Social History Date Tobacco Use Types Packs/Day [...] Notes * Ebony Sharp MD - 04/07/2018 3:00 PM CDT Hepatitis C confirmatory testing is negative. She does NOT have Hep C. * Ebony Sharp MD - 04/07/2018 3:00 PM CDT Please make sure that you have an appointment for 3 months from now. Your A1c i s too high. Cholesterol is higher. Thyroid appears underactive. There are sev eral things that we need to follow-up. I definitely need to see you in 3 months . By then, I am hoping that life is a little bit more back to normal for you so your labs also will be a little bit more back to normal. The hepatitis C is re active so we need to send this on for the PCR testing. Please make sure she has a 3 month follow-up as well. She has history of [facility] an d cancellation, so need to remind her of importance of keeping appt. documented in this encounter Plan of Treatment Care Team Description [place] [address] [place] [address] 02/29/2020 Office Visit Urology documented as of this encounter Procedures Comments Procedure Name Priority Date/Time Associated Diag nosis THYROID STIMULATING Routine 04/07/2018 Subclinica l HORMONE 3:03 PM CDT hyperthyroidism T4 FREE Routine 04/07/2018 Subclinical 3:03 PM CDT hyperthyroidism LIPID PANEL Routine 04/07/2018 Hyperlipidemia, 3:03 PM CDT unspecified hyperlipidemia type HEPATITIS C PCR Add-On 04/07/2018 QUANTITATIVE 3:03 PM CDT HEPATITIS C ANTIBODY Routine 04/07/2018 Encounter for hepatitis C 3:03 PM CDT screening test for low risk patient HEMOGLOBIN A1C Routine 04/07/2018 Type 2 diabetes mellitus 3:03 PM CDT with hyperglycemia, 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) COMPREHENSIVE METABOLIC Routine 04/07/2018 Hyperl ipidemia, PANEL 3:03 PM CDT unspecified hyperlipidemia type documented in this encounter Results * Hepatitis C PCR Quantitative (04/07/2018 3:03 PM CDT) Hepatitis C PCR Not Detected Not Detected IU/mL [facility] Hepatitis C PCR Not Detected Not Detected LOG [facility] QT Log [facility] Specimen Blood Performing Organization Address City/[facility] Ph one Number [facility] [address] [place] [address] LABORATORIES * Comprehensive Metabolic Panel (04/07/2018 3:03 PM CDT) Sodium 138 133 - 147 MEQ/L [facility] Potassium 4.1 3.5 - 5.3 MEQ/L [facility] Chloride 98 96 - 112 MEQ/L [facility] Carbon Dioxide 34 (H) 20 - 32 MEQ/L [facility] Anion Gap 6 5 - 17 [facility] Calcium 9.2 8.4 - 10.5 mg/dL [facility] Glucose 128 (H) 70 - 100 mg/dL [facility] Protein Total 7.8 6.0 - 8.2 g/dL [facility] Serum [facility] Albumin 4.2 3.5 - 5.0 g/dL [facility] Alkaline 88 42 - 140 IU/L [facility] Phosphatase [facility] Alanine 27Comment: ALT reference range 0 - 34 IU/L [facility] Aminotransferas changed on 03-01-2018 [facility] Aspartate 31 15 - 46 IU/L [facility] Aminotransferas [facility] Bilirubin Total 0.3 0.2 - 1.3 mg/dL [facility] Blood Urea 19 7 - 26 mg/dL [facility] Nitrogen [facility] Creatinine 0.7 0.4 - 1.1 mg/dL [facility] eGFR Female AA 101 60 - 200 [facility] Comment: REGIONAL Chronic Kidney Disease less LABORATORIES than 60 mL/min/1.73 sq.m Kidney failure less than 15 mL/min/1.73 sq.m eGFR Female 84 60 - 200 [facility] Non-AA Comment: REGIONAL Chronic Kidney Disease less LABORATORIES than 60 mL/min/1.73 sq.m Kidney failure less than 15 mL/min/1.73 sq.m Specimen Blood Performing Organization Address City/[facility] Ph one Number [facility] [address] [place], [place] [phone] LABORATORIES * T4 Free (04/07/2018 3:03 PM CDT) T4 Free 1.2 0.8 - 2.2 ng/dL [facility] LAB[facility]IES Specimen Blood Performing Organization Address City/[facility] Ph one Number [facility] [address] [phone] LABORATORIES * Thyroid Stimulating Hormone (04/07/2018 3:03 PM CDT) Thyroid 0.09 (L) 0.47 - 4.68 uIU/mL [facility] Hormone LABORATORIES Specimen Blood Performing Organization Address [facility] one Number [address] [phone] LABORATORIES * Hemoglobin A1C (04/07/2018 3:03 PM CDT) Hemoglobin A1C 8.2 (H) 4.0 - 5.6 % [facility] Comment: REGIONAL Non-diabetic 4.0 - LABORATORIES 5.6 % Prediabetes 5.7 - 6.4 % Diabetes >= 6.5 % Specimen Blood Performing Organization Address City/[facility] one Number [facility] [phone] LABORATORIES * Lipid Panel (04/07/2018 3:03 PM CDT) Cholesterol 244 (H) 100 - 200 mg/dL [facility] LABORATORIES HDL Cholesterol 59 40 - 110 mg/dL [facility]IES Non-HDL 185 (H) 0 - 130 mg/dL [facility] Cholesterol [facility] Triglycerides 142 0 - 150 mg/dL [facility]IES LDL Cholesterol 157 (H) 0 - 99 mg/dL [facility] LAB[facility]IES Cholesterol/HDL 4.1 0.0 - 4.5 [facility] Ratio [facility] Specimen Blood Performing Organization Address [facility] one Number [address] [address] LABORATORIES * Hepatitis C Antibody (04/07/2018 3:03 PM CDT) Hepatitis C Ab Reactive (A) Non-reactive [facility] LAB[facility]IES SCO Ratio 3.89Comment: S/CO ratio <10.0 [facility] may indicate a false positive [facility] HCV antibody, especially in LABORATORIES low risk populations. Confirmation by HCV PCR is recommended. Contact Client Services. Specimen Blood Performing Organization Address City/State/Zipcode Ph one Number [address] [address] LABORATORIES documented in this encounter Visit Diagnoses Diagnosis Encounter for hepatitis C screening althea t for low risk patient Hyperlipidemia, unspecified hyperlipide prasanna type Subclinical hyperthyroidism Thyrotoxicosis without mention of goite r or other cause, without mention of thyrotoxic crisis or storm Type 2 diabetes mellitus with hyperglyc emia, 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) documented in this encounter Additional Health Concerns Resolved Time Infection Noted Time 04/19/2018 12:13 PM CDT Influenza 08/30/2017 10:13 AM SACK FILLER documented as of this encounter
--- OUTSIDE RECORDS SUMMARY | 2019-11-28 22:24 | XMS REPORT | Encounter Summary ---
Author Author [facility] Organization [facility] Address Unknown Phone Unavailable Care Team Providers Care Motor Generator Set Operator Name Role Phone Ebony Sharp MD PCP Reason for Visit * Reason Comments Follow-up 6 months Encounter Details Care Team Description Date Type Department Ebony Sharp MD [address] [facility] [address] [place], [place] [phone] SASHA on CPAP (Primary Dx); COPD exacerbation (HCC); Hyperlipidemia, unspecified hyperlipidemia type; Benign essential HTN; Type 2 diabetes mellitus with hyperglycemia, 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); Routine adult health maintenance; Need for hepatitis C screening test 01/06/2018 Office Visit [facility] (walk-in clinic) [address] [facility] [address] [place], [place] [phone] Social History Date Tobacco Use Types Packs/Day [...] Signs Reading Time Taken Comments Vital Sign 142/90 01/06/2018 11:47 AM CDT Blood Pressure 78 01/06/2018 11:47 AM CDT Pulse - - Temperature - - Respiratory Rate 96% 01/06/2018 11:47 AM CDT Oxygen Saturation - - Inhaled Oxygen Concentration 94.8 kg (209 lb) 01/06/2018 11:47 AM CDT Weight 157.5 cm (5' 2") 01/06/2018 11:47 AM CDT Height 38.23 01/06/2018 11:47 AM CDT Body Mass Index documented in this encounter Progress Notes * Ebony Sharp MD - 01/06/2018 11:30 AM CDT CC: Follow-up (6 months) HPI : Caren Patten is a 67 y.o. female who presents with complaints of Follow-up (6 months) 1. HLD - taking simvastatin. 2. HTN - high BP currently secondary to pain. She says that she has been out of Breo as well. 3. DM2 - Last a1c was down to 7.5. 4. COPD - she had been taking Breo and it helped her a lot. She is out of the Breo now. She says that she has no energy and is feeling "high" 5. SASHA - still has cpap with O2 on it at 2L. She has not been using it for ma ny months (at least 3-4 months). 6. OA - she has been having a lot of pain in the back and left knee - She was g etting narcotic medicine from Dr. Olivas and he has weaned her off of it. 7. Obesity - she is wanting to get a weight loss surgery, but currently does no t have reliable transportation to get her to the appointments. ALLERGIES: Allergies Allergen Reactions Lisinopril Anaphylaxis Metformin [...] by mouth eve y. Take one daily. 90 tablet 0 citalopram (CELEXA) 20 mg tablet Take 1 tablet (20 mg total) by mouth daily. 90 tablet 1 docusate sodium (COLACE) 100 MG capsule Take 1 capsule (100 mg total) by tanna th 2 (two) times a day as needed for constipation (first line therapy with polye thlene glycol). 60 capsule 0 fluticasone-vilanterol (BREO ELLIPTA) 200-25 mcg/actuation INHALER Inhale 1 puff daily. 60 each 2 gabapentin (NEURONTIN) 300 MG capsule Take 1 capsule (300 mg total) by mouth 3 (three) times a day. 270 capsule 1 insulin glargine (LANTUS) 100 unit/mL injection Inject 15 Units under the sk in nightly. 10 mL 0 insulin syringe (BD ULTRA-FINE) 0.3 mL 31 gauge x 5/16 Inject under the skin daily. use as directed 100 each 0 ipratropium-albuterol (DUO-NEB) 0.5-3 mg/3 mL nebulizer Inhale 3 mL 4 (four) times a day. 360 mL 11 metoprolol tartrate (LOPRESSOR) 100 MG tablet Take 1 tablet (100 mg total) b y mouth 2 (two) times a day. 180 tablet 0 OXYGEN THERAPY 2 L/min as needed. simvastatin (ZOCOR) 20 MG tablet Take 1 tablet (20 mg total) by mouth nightl y. 90 tablet 1 No current facility-administered medications for [...] HEALTH MAINTENANCE: Health Maintenance Topic Date Due Td # 1950 Hepatitis C Screen 1950 Spirometry # 1950 Diabetes Mellitus Ophthalmology Exam 1950 Diabetes Mellitus Foot Exam 1962 Mammogram Screening 01/05/2013 Pneumococcal Immunization 65+ (1 of 2 - PCV13) 2017 Depression Screening PHQ-9 # 2017 Diabetes Mellitus Hemoglobin A1C 01/06/2018 Medicare Annual Wellness 04/08/2018 Lipid Screening 04/08/2018 Diabetes Mellitus Urine Microalbumin 04/08/2018 Fall Risk Assessment # 11/25/2018 Colorectal Screening via Colonoscopy 12/24/2019 Osteoporosis Screening 03/18/2021 Influenza Vaccine Completed Immunization History Administered Date(s) Administered Influenza QIV (IM) 05/09/2016, 07/09/2017 Pneumococcal Polysaccharide 23-Valent 05/09/2016 Review of Systems Respiratory: Positive for shortness of breath. All other systems reviewed and are negative. OBJECTIVE Vitals: 01/06/18 1147 BP: (!) 142/90 BP Location: Left arm Pulse: 78 SpO2: 96% Weight: 94.8 kg (209 lb) Height: 1.575 m (5' 2") Estimated body mass index is 38.23 kg/m as calculated from the following: Height as of this encounter: 1.575 m (5' 2"). Weight as of this encounter: 94.8 kg (209 lb). Physical Exam Constitutional: She appears well-developed [...] Diagnoses and all orders for this visit: SASHA on CPAP COPD exacerbation (HCC) Hyperlipidemia, unspecified hyperlipidemia type - Lipid Panel; Future Benign essential HTN Type 2 diabetes mellitus with hyperglycemia, with long-term current use of insul in (HCC) - Hemoglobin A1C; Future Routine adult health maintenance - Thyroid Stimulating Hormone; Future - DEXA Bone Density Hip Pelvis Spine - MA Mammogram screening w CAD bilat; Future Need for hepatitis C screening test - Hepatitis C Antibody; Future Other orders - amLODIPine (NORVASC) 2.5 MG tablet; Take 2 tablets (5 mg total) by mouth d aily. Take one daily. - metoprolol tartrate (LOPRESSOR) 100 MG tablet; Take 1 tablet (100 mg total ) by mouth 2 (two) times a day. - fluticasone-vilanterol (BREO ELLIPTA) 200-25 mcg/actuation INHALER; Inhale 1 puff daily. - Discontinue: gabapentin (NEURONTIN) 300 MG capsule; Take 2 capsules (600 m g total) by mouth 3 (three) times a day. - gabapentin (NEURONTIN) 300 MG capsule; Take 2 capsules (600 mg total) by m outh 3 (three) times a day. 1. HLD - check lipid, cmp. 2. HTN - Her BP is high. This is likely multifactorial. She needs to have her Breo regularly. She also need to be treating her SASHA. 3. DM2 - due to recheck a1c. She likely will need to be seen again in 3-4 month s. 4. COPD - continue Breo. 5. SASHA - restart cpap therapy NAIN. 6. OA - will increase the kannan to 600mg tid as this is what she has been taking and feeling well with it. 7. Obesity - hopefully adequately treated SASHA helps this. Ebony Sharp MD documented in this encounter Plan of Treatment Care Team Description Date [place] [address] [place] [address] [phone] 02/29/2020 Office Visit Urology documented as of this encounter Procedures Comments Procedure Name Priority Date/Time Associated Diag nosis DEXA SCAN Routine 02/25/2016 documented in this encounter Results * DEXA SCAN (02/25/2016) DEXA Scan Normal documented in this encounter Visit Diagnoses Diagnosis SASHA on CPAP COPD exacerbation (HCC) Obstructive chronic bronchitis with exa cerbation Hyperlipidemia, unspecified hyperlipide prasanna type Benign essential HTN Type 2 diabetes mellitus with hyperglyc emia, 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) Routine adult health maintenance Need for hepatitis C screening test Special screening examination for other specified viral diseases documented in this encounter Additional Health Concerns Resolved Time Infection Noted Time 04/19/2018 12:13 PM CDT Influenza 08/30/2017 10:13 AM B2B SALES REPRESENTATIVE documented as of this encounter
--- OUTSIDE RECORDS SUMMARY | 2019-11-28 22:24 | XMS REPORT | Encounter Summary ---
Author Author [facility] Organization [facility] Address Unknown Phone Unavailable Care Team Providers Care Compressor Service Technician Name Role Phone Ebony Sharp MD PCP Encounter Details Care Team Description Date Type Department [address], [facility] 11/18/2017 Hist-Other [facility] [address] [place] [address] Social History Date Tobacco Use Types Packs/Day [...] Description Date [place] [address] [place] [address] [phone] 02/29/2020 Office Visit Urology documented as of this encounter Procedures Comments Procedure Name Priority Date/Time Associated Diag nosis XR ANKLE LEFT Routine 11/18/2017 2:42 PM CDT documented in this encounter Results * XR Ankle left (11/18/2017 2:42 PM CDT) Specimen Performing Organization Address City/State/Zipcode Ph one Number LEVI documented in this encounter Visit Diagnoses Not on filedocumented in this encounter Additional Health Concerns Resolved Time Infection Noted Time 04/19/2018 12:13 PM CDT Influenza 08/30/2017 10:13 AM ALEMITE OPERATOR documented as of this encounter
--- OUTSIDE RECORDS SUMMARY | 2019-11-28 22:24 | XMS REPORT | Encounter Summary ---
Author Author [facility] Organization [facility] Address Unknown Phone Unavailable Care Team Providers Care Sales And Marketing Professional Name Role Phone Ebony Sharp MD PCP Reason for Visit * Reason Comments Other Encounter Details Care Team Description Date Type Department Ebony Sharp MD [address] [facility] [address] [place] [address] [phone] Other 11/20/2017 Refill [facility] y [facility] (walk-in clinic) [address] [facility] [address] [place], [place] [id number] Social History Date Tobacco Use Types Packs/Day [...] Description Date [place] [address] [place] [address] [phone] 02/29/2020 Office Visit Urology documented as of this encounter Visit Diagnoses Not on filedocumented in this encounter Additional Health Concerns Resolved Time Infection Noted Time 04/19/2018 12:13 PM CDT Influenza 08/30/2017 10:13 AM FILLING HAULER WEAVING 08/30/2019 1:09 PM FILLING HAULER WEAVING Influenza - Rule Out 08/30/2019 11:32 AM FILLING HAULER WEAVING 09/17/2019 8:17 AM FILLING HAULER WEAVING RSV 08/31/2019 6:35 PM FILLING HAULER WEAVING documented as of this encounter
--- OUTSIDE RECORDS SUMMARY | 2019-11-28 22:24 | XMS REPORT | Encounter Summary ---
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 Care Toolmaker Helper Name Role Phone Ebony Sharp MD PCP Encounter Details Care Team Description Date Type Department Adelaida Olivas MD [address] [facility] [address] [place], [place] [id number] 02/10/2018 Hist-Transcript [facility] Encounter Specialists [address] [facility] [address] [place], [place] [address] Social History Date Tobacco Use Types Packs/Day [...] as of this encounter Progress Notes * Adelaida Olivas MD - 02/10/2018 3:28 PM CDT - Chief Complaint Left ankle pain. History of Present Illness Presents today for evaluation of her left lower extremity. Her left ankle has be en doing okay. She is wearing the brace on her left ankle. She is set up to see pain management. Examination Physical examination reveals a pleasant 67-year-old woman with improved tenderne ss to palpation throughout the dorsum of her ankle. Her skin is otherwise intac t. She is otherwise able to plantar flex and dorsiflex her foot without any spe cific complaints. Impression LEFT ANKLE PAIN (DLD42-C48.572) CONTRACTURE OF ANKLE JOINT LEFT (OIL24-Y39.572) LEFT ANKLE PRIMARY OSTEOARTHRITIS (TLK62-O80.072) Status post ankle fusion, currently doing well. Plan At this point, we will plan to allow her to be weightbearing as tolerated. We w ill refill her Tylenol with Codeine. At this point, she will go through pain ma nagement for all of her further narcotic requirements. Past Medical History High Blood Pressure Arthritis Osteoporosis COPD / Emphysema Diabetes Surgical History Surgical history includes Appendectomy Tonsillectomy Section(1) Gallbla dder(laparoscopic) D & C(single) Hysterectomy(complete) Total Knee Replacement(bilateral) Arthroscopic Knee(bilat eral). Left ankle arthroscopy,open fusions,tendons release,subtalar debridement 08/07/16. Left Foot Removal of hardware Achilles tendon lengthening, tibiotalar fusion, fibular osteotomy stimulator insertion ankle arthrodesis 04/09/17 Risk Factors Tobacco Use: Former smoker Does not drink alcohol. Social History Marital Status: Lives with: children Children: 1 child Job Status: Disabled Medication list: ALBUTEROL SULFATE 1.25 MG/3ML INHALATION NEBULIZATION SOLUTI (ALBUTEROL SULFATE) as directed PROAIR HFA 108 (90 Base) MCG/ACT INHALATION AEROSOL SOLUTION (ALBUTEROL SULFATE) as directed AMITRIPTYLINE HCL 25 MG ORAL TABLET (AMITRIPTYLINE HCL) as directed AMLODIPINE BESYLATE 2.5 MG ORAL TABLET (AMLODIPINE BESYLATE) as directed CELEXA 20 MG ORAL TABLET (CITALOPRAM HYDROBROMIDE) as directed BREO ELLIPTA 200-25 MCG/INH INHALATION AEROSOL POWDER BREATH (FLUTICASONE FUROAT E-VILANTEROL) as directed GABAPENTIN 300 MG ORAL CAPSULE (GABAPENTIN) as directed IPRATROPIUM-ALBUTEROL 0.5-2.5 (3) MG/3ML INHALATION SOLUTION (IPRATROPIUM-ALBUTE ROL) as directed LANTUS 100 UNIT/ML SUBCUTANEOUS SOLUTION (INSULIN GLARGINE) as directed METOPROLOL TARTRATE 100 MG ORAL TABLET (METOPROLOL TARTRATE) as directed SIMVASTATIN 20 MG ORAL TABLET (SIMVASTATIN) as directed CYCLOBENZAPRINE HCL 10 MG ORAL TABLET (CYCLOBENZAPRINE HCL) 1 tablet at bedtime VITAMIN C 500 MG ORAL TABLET (ASCORBIC ACID) 1 po q daily VITAMIN D (ERGOCALCIFEROL) 08822 UNIT ORAL CAPSULE (ERGOCALCIFEROL) 1 po q weekl y TYLENOL WITH CODEINE #4 300-60 MG TABS (ACETAMINOPHEN-CODEINE) 1-2 PO Q 4-6 hour s PRN Pain Allergies: LISINOPRIL (LISINOPRIL) GLUCOPHAGE (METFORMIN HCL) SULFA (SULFADIAZINE) METFORMIN HCL (METFORMIN HCL) I have reviewed and concur with the medical, social and family histories collect ed and entered on my behalf, on 02/10/2018. -Adelaida Olivas MD, February 10, 2018 3:47 PM Prescriptions: TYLENOL WITH CODEINE #4 300-60 MG TABS (ACETAMINOPHEN-CODEINE) 1-2 PO Q 4-6 hour s PRN Pain #40 x 0 Entered by: Sharona Scott Authorized by: Adelaida Olivas MD Signed by: Sharona Scott on 02/10/2018 Method used: Print then Give to Patient RxID: [id number] Review of Systems General: Complains of fatigue. Eyes: Denies blurring, double vision, eye irritation, discharge, vision loss - 1 eye, vision loss - both eyes, eye pain, light sensitivity, halos. Ears/Nose/Throat: Denies decreased hearing, difficulty swallowing. Cardiovascular: Complains of swelling of hands or feet, shortness of breath with exertion. Respiratory: Complains of shortness of breath. Gastrointestinal: Denies loss of appetite, nausea, vomiting, hemorrhoids. Genitourinary: Denies urinary urgency, urinary frequency. Musculoskeletal: Complains of muscle cramps, stiffness. Skin: Denies night sweats, dryness, suspicious lesions, changes in nail beds, un usual hair distribution, changes in color of skin, poor wound healing. Neurologic: Complains of disturbances in coordination. Psychiatric: Denies depression, anxiety. Endocrine: Complains of heat intolerance. Heme/Lymphatic: Denies abnormal bruising, fevers. Allergic/Immunologic: Complains of seasonal allergies. Vital Signs Ht: 62 in. Wt: 236 lbs. T: 95.6 deg F. BMI: 43.16 She was encourage to talk with their primary care provider about weight manageme nt. Radiographs: X-ray examination demonstrates what appears to be fusion of ankle. I would like her to return in 2-3 months and obtain a weight bearing x-ray of th eir left ankle. Orders from current office visit: Ankle x-ray 3 views PQRS 128a PQRS 47NL PQRS 226NS PQRS 317na PQRS 130 Measure 109 Pain Managment Consult * Signed by Adelaida Olivas MD on February 15, 2018 at 9:54 AM X-Ray Report X-ray examination demonstrates what appears to be fusion of ankle. documented in this encounter Plan of Treatment Care Team Description Date [place] [address] [place] [address] [phone] 02/29/2020 Office Visit Urology documented as of this encounter Visit Diagnoses Not on filedocumented in this encounter Additional Health Concerns Resolved Time Infection Noted Time 04/19/2018 12:13 PM CDT Influenza 08/30/2017 10:13 AM RESEARCH SCHOLAR 08/30/2019 1:09 PM RESEARCH SCHOLAR Influenza - Rule Out 08/30/2019 11:32 AM RESEARCH SCHOLAR 09/17/2019 8:17 AM RESEARCH SCHOLAR RSV 08/31/2019 6:35 PM RESEARCH SCHOLAR documented as of this encounter
--- OUTSIDE RECORDS SUMMARY | 2019-11-28 22:24 | XMS REPORT | Encounter Summary ---
Author Author [facility] Organization [facility] Address Unknown Phone Unavailable Care Team Providers Care Professor Of English Name Role Phone Ebony Sharp MD PCP Encounter Details Care Team Description Date Type Department Adelaida Olivas MD [address] [facility] [address] [place] [address] 03/10/2018 [facility] [address] [facility] [address] [place] [address] Social History Date Tobacco Use [...] Clinic Note - Adelaida Olivas MD - 03/10/2018 11:46 AM CDT Phone Note Call from Patient Caller: patient Summary of call: patient left a message requesting a refill of her Tylenol #4. P lease call back at [phone] Call taken by: Kate Washington on March 10, 2018 11:47 AM Follow-up for Phone Call Follow-up Details: Patient is at front end technician stating pharmacy never received Escr ipt. She would like a written one. Called pharmacy, , and yennifer morales that the did not receive. They did not, this script reprinted Follow-up by: Lilian Greenwood on March 11, 2018 10:05 AM Additional Follow-up for Phone Call Additional Follow-up Details: Given to patient Additional Follow-up by: Lilian Greenwood on March 11, 2018 10:17 AM Prescriptions: TYLENOL WITH CODEINE #4 300-60 MG TABS (ACETAMINOPHEN-CODEINE) 1-2 PO Q 4-6 hour s PRN Pain #20 x 0 Entered by: Lilian Greenwood Authorized by: Vic Keita MD Signed by: Lilian Greenwood on 03/11/2018 Method used: Print then Give to Patient RxID: [id number] documented in this encounter Plan of Treatment Care Team Description Date [place] [address] [place] [address] [phone] 02/29/2020 Office Visit Urology documented as of this encounter Visit Diagnoses Not on filedocumented in this encounter Additional Health Concerns Resolved Time Infection Noted Time 04/19/2018 12:13 PM CDT Influenza 08/30/2017 10:13 AM SUPERVISOR VOLUNTEER SERVICES 08/30/2019 1:09 PM SUPERVISOR VOLUNTEER SERVICES Influenza - Rule Out 08/30/2019 11:32 AM SUPERVISOR VOLUNTEER SERVICES 09/17/2019 8:17 AM SUPERVISOR VOLUNTEER SERVICES RSV 08/31/2019 6:35 PM SUPERVISOR VOLUNTEER SERVICES documented as of this encounter
--- OUTSIDE RECORDS SUMMARY | 2019-11-28 22:24 | XMS REPORT | Encounter Summary ---
Author Author [facility] Organization [facility] Address Unknown Phone Unavailable Care Team Providers Care Tax Manager Name Role Phone Ebony Sharp MD PCP Encounter Details Care Team Description Date Type Department Adelaida Olivas MD [address] [facility] [address] [place] [address] 03/09/2018 Hist-Telephone [facility] [address] [facility] [address] [place], [place] [id number] Social History Date Tobacco Use Types Packs/Day [...] encounter Miscellaneous Notes * Clinic Note - Juarez Noble - 03/09/2018 5:22 PM CDT Phone Note Call from Patient Summary of call: Patient is calling to request a refill of her Tylenol #4 Rx. P er Trevor we will refill at #20 and afterwards there will be no refills, she will need to see her PCP. Call taken by: Cecilia Tavarez on March 09, 2018 5:18 PM Prescriptions: TYLENOL WITH CODEINE #4 300-60 MG TABS (ACETAMINOPHEN-CODEINE) 1-2 PO Q 4-6 hour s PRN Pain #20[Tablet] x 0 Entered by: Cecilia Tavarez Authorized by: Adelaida Olivas MD Signed by: Cecilia Tavarez on 03/09/2018 Method used: Electronically to [facility] (retail) [address] [place] [address] Ph: [phone] Fax: [phone] RxID: [id number] left voicemail for patient that Rx was filled and waiting at [facility]. documented in this encounter Plan of Treatment Care Team Description Date [place] [address] [place] [address] [phone] 02/29/2020 Office Visit Urology documented as of this encounter Visit Diagnoses Not on filedocumented in this encounter Additional Health Concerns Resolved Time Infection Noted Time 04/19/2018 12:13 PM CDT Influenza 08/30/2017 10:13 AM GREEN COFFEE BLENDER 08/30/2019 1:09 PM GREEN COFFEE BLENDER Influenza - Rule Out 08/30/2019 11:32 AM GREEN COFFEE BLENDER 09/17/2019 8:17 AM GREEN COFFEE BLENDER RSV 08/31/2019 6:35 PM GREEN COFFEE BLENDER documented as of this encounter
--- OUTSIDE RECORDS SUMMARY | 2019-11-28 22:24 | XMS REPORT | Encounter Summary ---
Author Author [facility] Organization [facility] Address Unknown Phone Unavailable Care Team Providers Care Classification And Treatment Director Name Role Phone Ebony Sharp MD PCP Reason for Visit * Reason Comments Follow-up Margot left ankle - LS. NA 0 10/07/17TVX: Appt. Reminder (11/16/2017 06:42 PM) Phone Call - Message Delivered (X=Answe ring Machine) Encounter Details Care Team Description Date Type Department Adelaida Olivas MD [address] [facility] [address] [place] [address] [phone] 11/18/2017 Hist-Appointmen [facility] [address] [facility] [address] [place] [address] Social History Date Tobacco Use Types Packs/Day [...] Description Date [place] [address] [place] [address] [phone] 02/29/2020 Office Visit Urology documented as of this encounter Visit Diagnoses Not on filedocumented in this encounter Additional Health Concerns Resolved Time Infection Noted Time 04/19/2018 12:13 PM CDT Influenza 08/30/2017 10:13 AM EMPLOYMENT RECRUITER documented as of this encounter
--- OUTSIDE RECORDS SUMMARY | 2019-11-28 22:24 | XMS REPORT | Encounter Summary ---
Author Author [facility] Organization [facility] Address Unknown Phone Unavailable Care Team Providers Care Aquatic Ecologist Name Role Phone Ebony Sharp MD PCP Encounter Details Care Team Description Date Type Department Adelaida Olivas MD [address] [facility] [address] [place], [place] [id number] 11/18/2017 Hist-Transcript [facility] Encounter Specialists [address] [facility] [address] [place], [place] [address] Social History Date Tobacco Use Types Packs/Day [...] as of this encounter Progress Notes * Juarez Noble - 11/18/2017 3:09 PM CDT - History of Present Illness Ms. Patten notes that she has had some persistent pain. She is trying to enroll with a pain management physician. Examination Physical examination reveals a pleasant 67-year-old woman who is able to plantar flex and dorsiflex her foot with minimal complaints of pain. Her surgical inci luanne is otherwise very well healed. There is no overt evidence of delayed wound healing. There is minimal swelling. Her subtalar joint is otherwise intact. Impression CHRONIC PAIN SYNDROME (AHY25-E07.4) LEFT ANKLE PAIN (FMC01-H81.572) Pain, status post tibiotalar fusion. Plan At this point, she did discuss weaning her off of her pain medicine. She is sti ll pending pain management review. Past Medical History High Blood Pressure Arthritis [...] 1 po q daily VITAMIN D (ERGOCALCIFEROL) 30400 UNIT ORAL CAPSULE (ERGOCALCIFEROL) 1 po q weekl y NUCYNTA 50 MG ORAL TABLET (TAPENTADOL HCL) One PO Q 4 hours PRN pain SKELAXIN 800 MG ORAL TABLET (METAXALONE) one, po, at bedtime as needed for muscl e spasm LIDODERM 5 % EXTERNAL PATCH (LIDOCAINE) apply to painful area 12 hours on, 12 ho urs off NORCO 5-325 MG TABS (HYDROCODONE-ACETAMINOPHEN) 4 tablets daily PO TYLENOL WITH CODEINE #4 300-60 MG TABS (ACETAMINOPHEN-CODEINE) 1-2 PO Q 4-6 hour s PRN Pain Allergies: LISINOPRIL (LISINOPRIL) GLUCOPHAGE (METFORMIN HCL) SULFA (SULFADIAZINE) METFORMIN HCL (METFORMIN HCL) I have reviewed and concur with the medical, social and family histories collect ed and entered on my behalf, on 11/18/2017. -Adelaida Olivas MD, November 18, 2017 3:01 PM Prescriptions: TYLENOL WITH CODEINE #4 300-60 MG TABS (ACETAMINOPHEN-CODEINE) 1-2 PO Q 4-6 hour s PRN Pain #90 x 0 Entered by: Rg Lopez Authorized by: Adelaida Olivas MD Signed by: Rg Lopez on 11/18/2017 Method used: Faxed to ... [facility] (retail) [address] [place] [address] Ph: [phone] Fax: [phone] RxID: [id number] TYLENOL WITH CODEINE #4 300-60 MG TABS (ACETAMINOPHEN-CODEINE) 1-2 PO Q 4-6 hour s PRN Pain #90[Unspecified] x 0 Entered and Authorized by: Adelaida Olivas MD Signed by: Adelaida Olivas MD on 11/18/2017 Method used: Electronically to [facility]* (retail) [address] [place] [address] Ph: [phone] Fax: [phone] RxID: [id number] Vital Signs Radiographs: X-ray examination, AP, lateral, and oblique of the left ankle demonstrates what appears to be impending tibiotalar fusion. . Orders from current office visit: Ankle x-ray 3 views PQRS 128na PQRS 47NL PQRS 226NS PQRS 317na PQRS 130na Measure 109 miscellaneous * Signed by Adelaida Olivas MD on December 01, 2017 at 7:59 AM X-Ray Report X-ray examination, AP, lateral, and oblique of the left ankle demonstrates what appears to be impending tibiotalar fusion. documented in this encounter Plan of Treatment Care Team Description Date [place] [address] [place] [address] [phone] 02/29/2020 Office Visit Urology documented as of this encounter Visit Diagnoses Not on filedocumented in this encounter Additional Health Concerns Resolved Time Infection Noted Time 04/19/2018 12:13 PM CDT Influenza 08/30/2017 10:13 AM GEOLOGICAL DRAFTER 08/30/2019 1:09 PM GEOLOGICAL DRAFTER Influenza - Rule Out 08/30/2019 11:32 AM GEOLOGICAL DRAFTER 09/17/2019 8:17 AM GEOLOGICAL DRAFTER RSV 08/31/2019 6:35 PM GEOLOGICAL DRAFTER documented as of this encounter
--- OUTSIDE RECORDS SUMMARY | 2019-11-28 22:24 | XMS REPORT | Encounter Summary ---
Author Author [facility] Organization [facility] Address Unknown Phone Unavailable Care Team Providers Care Blackjack Dealer Name Role Phone Ebony Sharp MD PCP Reason for Visit * Reason Comments Other Encounter Details Care Team Description Date Type Department Ebony Sharp MD [address] [facility] [address] [place], [place] [id number] Other 02/17/2018 Refill [facility] (walk-in clinic) [address] [facility] [address] [place], [place] [address] Social History Date Tobacco Use Types Packs/Day [...] Telephone Encounter - Helena Croft MA - 02/17/2018 3:26 PM CDT Refill request for Brio Ellipta Inhaler. Last seen on 02/01/18 * Telephone Encounter - Helena Croft MA - 02/17/2018 2:33 PM CDT Refill request for Brio documented in this encounter Plan of Treatment Care Team Description Date [place] [address] [place] [address] [phone] 02/29/2020 Office Visit Urology documented as of this encounter Visit Diagnoses Not on filedocumented in this encounter Additional Health Concerns Resolved Time Infection Noted Time 04/19/2018 12:13 PM CDT Influenza 08/30/2017 10:13 AM NEEDLE GRADER documented as of this encounter
--- OUTSIDE RECORDS SUMMARY | 2019-11-28 22:24 | XMS REPORT | Encounter Summary ---
Author Author [facility] Organization [facility] Address Unknown Phone Unavailable Care Team Providers Care Neon Installer Name Role Phone Ebony Sharp MD PCP Encounter Details Care Team Description Date Type Department Adelaida Olivas MD [address] [facility] [address] [place], [place] [address] 03/01/2018 Hist-Telephone [facility] c Specialists [address] [facility] [address] [place], [place] [id number] Social History Date Tobacco Use Types Packs/Day [...] Clinic Note - Adelaida Olivas MD - 03/01/2018 9:08 AM CDT Phone Note Call from Patient Summary of call: Patient called to confirm change of pharmacy. Pharmacy was lali nged in chart. Patient appreciated the call. Call taken by: Cecilia Tavarez on March 01, 2018 9:08 AM documented in this encounter Plan of Treatment Care Team Description Date [place] [address] [place] [address] [phone] 02/29/2020 Office Visit Urology documented as of this encounter Visit Diagnoses Not on filedocumented in this encounter Additional Health Concerns Resolved Time Infection Noted Time 04/19/2018 12:13 PM CDT Influenza 08/30/2017 10:13 AM SALES CLOSER 08/30/2019 1:09 PM SALES CLOSER Influenza - Rule Out 08/30/2019 11:32 AM SALES CLOSER 09/17/2019 8:17 AM SALES CLOSER RSV 08/31/2019 6:35 PM SALES CLOSER documented as of this encounter
--- OUTSIDE RECORDS SUMMARY | 2019-11-28 22:24 | XMS REPORT | Encounter Summary ---
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 Name Role Phone Ebony Sharp MD PCP Reason for Visit * Reason Comments Cough coughing up alot of mucus, sneezing, cough is very deep sounding, coughing and mucus is causing problems with fort[place] thing, hasn't checked temp, sx's for 2 weeks Encounter Details Care Team Description Date Type Department Rosa, Atify, RN RESEARCH [address] [facility] [address] [place] [address] Acute sinusitis, recurrence not specifie d, unspecified location (Primary Dx) 02/01/2018 Office Visit [facility] (walk-in clinic) [address] [facility] [address] [place] [address] Social History Date Tobacco Use [...] Signs Reading Time Taken Comments Vital Sign 124/84 02/01/2018 4:14 PM CDT Blood Pressure 77 02/01/2018 4:14 PM CDT Pulse 36.8 C (98.2 F) 02/01/2018 4:14 PM CDT Temperature - - Respiratory Rate 94% 02/01/2018 4:14 PM CDT Oxygen Saturation - - Inhaled Oxygen Concentration 95.3 kg (210 lb) 02/01/2018 4:14 PM CDT Weight 157.5 cm (5' 2") 02/01/2018 4:14 PM CDT Height 38.41 02/01/2018 4:14 PM CDT Body Mass Index documented in this encounter Patient Instructions * Patient Instructions* Rosa Samuel, RN RESEARCH - 02/01/2018 4:29 PM CDT Take doxycycline twice daily for 10 days, take with food and make sure to finish entire course. Take prednisone 2 tablet daily for 5 days, please monitor blood glucose Continue inhaler and breathing treatment as needed Recommend daily antihistamine (ex: zyrtec, aric, xyzal, claritin) or benadryl at bedtime to help ease symptoms Recommend nasal steroid use (ex: flonase (fluticasone)). Flonase is safe to take daily. Takes about 3 days to start working. Must be taken consistently to be ef fective. Use 2 sprays each nostril daily for the next 2 weeks. Take mucinex DM to help ease symptoms (cough suppressant and helps thin secretio ns). Take with a full glass of water. Drink plenty of fluids (at least 8 glasses of 8 oz of water daily). Recommend humidified air or steam from hot showers. Tylenol as needed Can use warm salt water gargles to help ease sore throat. Follow up with your primary physician if symptoms does not improve or worsening. Sinusitis (Antibiotic Treatment) The sinuses are air-filled spaces within the bones of the face. They connect to the inside of the nose.Sinusitisis an inflammation of the tissue lining the sinus cavity. Sinus inflammation can occur during a cold. It can also be due to allergies to pollens and other particles in the air. Sinusitis can cause symptom s of sinus congestion and fullness. A sinus infection causes fever, headache and facial pain. There is often green or yellow drainage from the nose or into the back of the throat (post-nasal drip). You have been given antibiotics to treat t his condition. Home care: Take the full course of antibiotics as instructed. Do not stop taking them, e paxton if you feel better. Drink plenty of water, hot tea, and other liquids. This may help thin mucus. It also may promote sinus drainage. Heat may help soothe painful areas of the face. Use a towel soaked in hot lyle er. Or, straight knife machine cutter the shower and direct the hot spray onto your face. Using a vap orizer along with a menthol rub at night may also help. Anexpectorantcontaining guaifenesin may help thin the mucus and promote d rainage from the sinuses. Mffj-zjb-oyxcxfhnjcwcnzrlibaljyf be used unless a similar medicine was pr escribed. Nasal sprays work the fastest. Use one that contains phenylephrine or oxymetazoline. First blow the nose gently. Then use the spray. Do not use these medicines more often than directed on the label or symptoms may get worse. You m ay also use tablets containing pseudoephedrine. Avoid products that combine ingr edients, because side effects may be increased. Read labels. You can also ask [facility] pharmacist for help. (NOTE:Persons with high blood pressure should not use d econgestants. They can raise blood pressure.) Evvu-rlu-gyexoptymmczhvuskmhljyul help if allergies contributed to your s inusitis. Do not use nasal rinses or irrigation during an acute sinus infection, unless told to by your health care provider. Rinsing may spread the infection to other sinuses. Use acetaminophen or ibuprofen to control pain, unless another pain medicine was prescribed. (If you have chronic liver or kidney disease or ever had a stoma ch ulcer, talk with your doctor before using these medicines. Aspirin should nev er be used in anyone under 18 years of age who is ill with a fever. It may cause severe liver damage.) Don't smoke. This can worsen symptoms. Follow-up care Follow up with your healthcare provider or our staff if you are not improving wi thin the next week. When to seek medical advice Call your healthcare provider if any of these occur: Facial pain or headache becoming more severe Stiff neck Unusual drowsiness or confusion Swelling of the forehead or eyelids Vision problems, including blurred or double vision Fever of100.4F (38C)or higher, or as directed by your healthcare prov ider Seizure Breathing problems Symptoms not resolving within 10 days 0706-9701 [employer]. [address] [place] [address], [place] [address] 7. All rights reserved. This information is not intended as a substitute for pro fessional medical care. Always follow your healthcare professional's instruction s. documented in this encounter Progress Notes * Samuel Lee APRN - 02/01/2018 3:40 PM CDT Patient ID: Caren Patten is a 67 y.o. female Subjective: Patient presents with Cough (coughing up alot of mucus, sneezing, cough is very deep sounding, coughing and mucus is causing problems with breathing, hasn't thad cked temp, sx's for 2 weeks) Patient is a 67 yo female here with c/o cough that started 2 weeks ago. Cough This is a new problem. The current episode started 1 to 4 weeks ago. The problem has been gradually worsening. The problem occurs every few minutes. The cough is productive of sputum (yellow in color). Associated symptoms include chills, ear congestion, ear pain, headaches, myalgias, nasal congestion, postnasal drip, r hinorrhea, a sore throat, shortness of breath and wheezing. Pertinent negatives include no chest pain or fever. The symptoms are aggravated by lying down and co ld air. Treatments tried: benadryl, nyquil, breo/breathing treatment and oxygen. The treatment provided mild relief. Her past medical history is significant for COPD. There is no history of asthma or environmental allergies. Patient Active Problem List Diagnosis SNOMED CT(R) COPD (chronic obstructive pulmonary disease) (HCC) CHRONIC OBSTRUCTIVE LUNG DISEASE Hyperlipidemia HYPERLIPIDEMIA Chronic pain CHRONIC PAIN Elevated MCV MCV - RAISED MATA (generalized anxiety disorder) GENERALIZED ANXIETY DISORDER Hair loss LOSS OF HAIR SASHA (obstructive sleep apnea) OBSTRUCTIVE SLEEP APNEA SYNDROME Iron deficiency IRON DEFICIENCY Goldberg-Ekbom syndrome RESTLESS LEGS Parasomnia PARASOMNIA Type 2 diabetes mellitus with hyperglycemia, with long-term current use of i nsulin (HCC) TYPE 2 DIABETES MELLITUS Benign essential HTN BENIGN ESSENTIAL HYPERTENSION SASHA on CPAP OBSTRUCTIVE SLEEP APNEA SYNDROME Morbid obesity due to excess calories (HCC) MORBID OBESITY Bleeding BLEEDING Post-op pain POSTOPERATIVE PAIN Acute bleeding BLEEDING Draining postoperative wound WOUND DISCHARGE COPD exacerbation (HCC) ACUTE EXACERBATION OF CHRONIC OBSTRUCTIVE AIRWAYS DI SEASE Renal calculus KIDNEY STONE Closed left ankle fracture CLOSED FRACTURE OF LEFT ANKLE Influenza A INFLUENZA DUE TO INFLUENZA A VIRUS Diabetes mellitus, type II ([facility]) TYPE 2 DIABETES MELLITUS Allergies: Allergies Allergen Reactions Lisinopril Anaphylaxis Metformin Anaphylaxis Sulfa (Sulfonamide Antibiotics) Hives Medications: Outpatient Encounter Prescriptions as of 02/01/2018 Medication Sig Dispense Refill albuterol (VENTOLIN HFA) 90 mcg/actuation HFA inhaler INHALE 1 PUFF EVERY 4 HOURS NEEDED FOR WHEEZING 18 g 2 amitriptyline (ELAVIL) 25 MG tablet Take 1 tablet (25 mg total) by mouth nig htly. 90 tablet 1 amLODIPine (NORVASC) 2.5 MG tablet Take 2 tablets (5 mg total) by mouth eve y. Take one daily. 180 tablet 1 citalopram (CELEXA) 20 mg tablet Take [...] INHALER Inhale 1 puff daily. 60 each 5 gabapentin (NEURONTIN) 300 MG capsule Take 2 [...] (two) times a day. 180 tablet 1 simvastatin (ZOCOR) 20 MG tablet Take 1 tablet (20 mg total) by mouth nightl y. 90 tablet 1 doxycycline hyclate (VIBRA-TABS) 100 MG tablet Take 1 tablet (100 mg total) by mouth 2 (two) times a day. 20 tablet 0 ipratropium-albuterol (DUO-NEB) 0.5-3 mg/3 mL nebulizer Inhale 3 mL 4 (four) times a day. 360 mL 11 OXYGEN THERAPY 2 L/min as needed. predniSONE (DELTASONE) 20 MG tablet Take 2 tablets (40 mg total) by mouth da edu. 10 tablet 0 No facility-administered encounter medications on file as of 02/01/2018. History: Past Medical History: Diagnosis Date Allergic rhinitis [...] Adelaida Olivas MD; Location: [facility]; Service: Orthopedics; Later ality: Left; [...] her daughter, Frank Garcia Code status: Full Review of Systems Constitutional: Positive for chills. Negative for fever. HENT: Positive for congestion, ear pain, postnasal drip, rhinorrhea, sinus pain, sinus pressure and sore throat. Respiratory: Positive for cough, chest tightness, shortness of breath and wheezi ng. Cardiovascular: Negative for chest pain and palpitations. Gastrointestinal: Negative for abdominal pain, nausea and vomiting. Musculoskeletal: Positive for myalgias. Allergic/Immunologic: Negative for environmental allergies. Neurological: Positive for headaches. Objective: BP 124/84 | Pulse 77 | Temp 36.8 C (98.2 F) | Ht 1.575 m (5' 2") | Wt 95 .3 kg (210 lb) | SpO2 94% | BMI 38.41 kg/m Physical Exam Constitutional: She is oriented to person, place, and time. She appears well-dev eloped and well-nourished. No distress. HENT: Right Ear: A middle ear effusion is present. Left Ear: A middle ear effusion is present. Nose: Rhinorrhea present. Right sinus exhibits maxillary sinus tenderness and fr ontal sinus tenderness. Left sinus exhibits maxillary sinus tenderness and front al sinus tenderness. Mouth/Throat: Posterior oropharyngeal erythema present. Neck: Normal range of motion. Neck supple. Cardiovascular: Normal rate. No murmur heard. Pulmonary/Chest: Effort normal and breath sounds normal. She has no decreased br eath sounds. Neurological: She is alert and oriented to person, place, and time. Skin: Skin is warm and dry. Psychiatric: She has a normal mood and affect. Diagnoses and all orders for this visit: Acute sinusitis, recurrence not specified, unspecified location - predniSONE (DELTASONE) 20 MG tablet; Take 2 tablets (40 mg total) by mouth daily. - doxycycline hyclate (VIBRA-TABS) 100 MG tablet; Take 1 tablet (100 mg tota l) by mouth 2 (two) times a day. Patient Instructions Take doxycycline twice daily for 10 days, take with food and make sure to finish entire course. Take prednisone 2 tablet daily for 5 days, please monitor blood glucose Continue inhaler and breathing treatment as needed Recommend daily antihistamine (ex: zyrtec, aric, xyzal, claritin) or benadryl at bedtime to help ease symptoms Recommend nasal steroid use (ex: flonase (fluticasone)). Flonase is safe to take daily. Takes about 3 days to start working. Must be taken consistently to be ef fective. Use 2 sprays each nostril daily for the next 2 weeks. Take mucinex DM to help ease symptoms (cough suppressant and helps thin secretio ns). Take with a full glass of water. Drink plenty of fluids (at least 8 glasses of 8 oz of water daily). Recommend humidified air or steam from hot showers. Tylenol as needed Can use warm salt water gargles to help ease sore throat. Follow up with your primary physician if symptoms does not improve or worsening. Sinusitis (Antibiotic Treatment) The sinuses are air-filled spaces within the bones of the face. They connect to the inside of the nose.Sinusitisis an inflammation of the tissue lining the sinus cavity. Sinus inflammation can occur during a cold. It can also be due to allergies to pollens and other particles in the air. Sinusitis can cause symptom s of sinus congestion and fullness. A sinus infection causes fever, headache and facial pain. There is often green or yellow drainage from the nose or into the back of the throat (post-nasal drip). You have been given antibiotics to treat t his condition. Home care: Take the full course of antibiotics as instructed. Do not stop taking them, e paxton if you feel better. Drink plenty of water, hot tea, and other liquids. This may help thin mucus. It also may promote sinus drainage. Heat may help soothe painful areas of the face. Use a towel soaked in hot lyle er. Or, straight knife machine cutter the shower and direct the hot spray onto your face. Using a vap orizer along with a menthol rub at night may also help. Anexpectorantcontaining guaifenesin may help thin the mucus and promote d rainage from the sinuses. Yloj-rnx-wqladbrbwyqfzjwyrusnmeb be used unless a similar medicine was pr escribed. Nasal sprays work the fastest. Use one that contains phenylephrine or oxymetazoline. First blow the nose gently. Then use the spray. Do not use these medicines more often than directed on the label or symptoms may get worse. You m ay also use tablets containing pseudoephedrine. Avoid products that combine ingr edients, because side effects may be increased. Read labels. You can also ask [facility] pharmacist for help. (NOTE:Persons with high blood pressure should not use d econgestants. They can raise blood pressure.) Hnyj-idn-shbtcmylhnoponflsrhfcizb help if allergies contributed to your s inusitis. Do not use nasal rinses or irrigation during an acute sinus infection, unless told to by your health care provider. Rinsing may spread the infection to other sinuses. Use acetaminophen or ibuprofen to control pain, unless another pain medicine was prescribed. (If you have chronic liver or kidney disease or ever had a stoma ch ulcer, talk with your doctor before using these medicines. Aspirin should nev er be used in anyone under 18 years of age who is ill with a fever. It may cause severe liver damage.) Don't smoke. This can worsen symptoms. Follow-up care Follow up with your healthcare provider or our staff if you are not improving wi thin the next week. When to seek medical advice Call your healthcare provider if any of these occur: Facial pain or headache becoming more severe Stiff neck Unusual drowsiness or confusion Swelling of the forehead or eyelids Vision problems, including blurred or double vision Fever of100.4F (38C)or higher, or as directed by your healthcare prov ider Seizure Breathing problems Symptoms not resolving within 10 days [id number] [employer]. [address] [place] [address] 7. All rights reserved. This information is not intended as a substitute for pro fessional medical care. Always follow your healthcare professional's instruction s. documented in this encounter Plan of Treatment Care Team Description Date [place] [id number] [place] [id number] [phone] 02/29/2020 Office Visit Urology documented as of this encounter Visit Diagnoses Diagnosis Acute sinusitis, recurrence not specifi ed, unspecified location documented in this encounter Additional Health Concerns Resolved Time Infection Noted Time 04/19/2018 12:13 PM CDT Influenza 08/30/2017 10:13 AM [employer] documented as of this encounter
--- OUTSIDE RECORDS SUMMARY | 2019-11-28 22:24 | XMS REPORT | Encounter Summary ---
Author Author [facility] Organization [facility] Address Unknown Phone Unavailable Care Team Providers Care Jig Builder Name Role Phone Ebnoy Sharp MD PCP Reason for Visit * Reason Comments Shortness of Breath Increased shortness of air over the last two weeks. Chest pain, sweating, and nausea today. Encounter Details Care Team Description Date Type Department Gladis Arteaga MD [address] [facility] [address] [place], [place] [id number] Dyspnea, unspecified type (Primary Dx); Chronic obstructive pulmonary disease, unspecified COPD type (HCC) 11/18/2017 Emergency [facility] [address] [place], [place] [id number] Social History Date Tobacco Use Types Packs/Day [...] Signs Reading Time Taken Comments Vital Sign 141/88 11/18/2017 5:31 PM CDT Blood Pressure 74 11/18/2017 5:56 PM CDT Pulse 36.8 C (98.3 F) 11/18/2017 3:34 PM CDT Temperature 13 11/18/2017 5:56 PM CDT Respiratory Rate 96% 11/18/2017 5:56 PM CDT Oxygen Saturation - - Inhaled Oxygen Concentration 95.7 kg (211 lb) 11/18/2017 3:31 PM CDT Weight 157.5 cm (5' 2") 11/18/2017 3:31 PM CDT Height 38.59 11/18/2017 3:31 PM CDT Body Mass Index documented in this encounter Discharge Instructions * Instructions* Gladis Arteaga MD - 11/18/2017 Return to ER for worsening symptoms or any other concerns. * Attachments The following attachments cannot be sent through Care Everywhere.* Chronic Obstructive Pulmonary Disease (COPD), Discharge Instructions ([place]) documented in this encounter Medications at Time [...] total) by mouth daily. Take one daily. 04/08/2017 11/25/2017 ASCORBIC ACID, VITAMIN C, TK 1 T PO D 0 500 MG tablet 11/25/2017 BIOTIN ORAL Take 2 0 tablets by mouth daily. 05/27/2017 11/25/2017 celecoxib (CELEBREX) 200 Take 200 mg 0 MG capsule by mouth daily. 08/26/2017 04/26/2018 citalopram (CELEXA) 20 mg [...] unit/mL injection Units under the skin nightly. 08/25/2017 11/25/2017 metaxalone (SKELAXIN) 800 Take 1 tablet 0 MG tablet by mouth nightly. 08/26/2017 01/06/2018 metoprolol tartrate Take 1 tablet 180 tablet 0 (LOPRESSOR) 100 MG tablet (100 mg total) by mouth 2 (two) times a day. 07/07/2017 11/25/2017 NUCYNTA 50 mg tablet Take 50 mg by 0 mouth every 12 (twelve) hours. 09/01/2017 11/25/2017 oseltamivir (TAMIFLU) 75 Take 1 4 capsule 0 MG capsuleIndications: capsule (75 INFLUENZA mg total) by mouth 2 (two) times a day. 08/26/2017 01/13/2019 simvastatin (ZOCOR) 20 MG Take 1 tablet 90 tablet 1 tablet (20 mg total) by mouth nightly. 09/20/2017 11/25/2017 simvastatin (ZOCOR) 20 MG TAKE 1 90 tablet 0 tablet TABLET(20 MG) BY MOUTH EVERY NIGHT documented as of this encounter ED Notes * Gladis Arteaga MD - 11/18/2017 3:58 PM CDT 11/18/2017 [facility] History Chief Complaint Patient presents with Shortness of Breath Increased shortness of air over the last two weeks. Chest pain, sweating, and nausea today. This is a 67-year-old female past medical history significant for COPD on 2.5 L of home oxygen, chronic pain, type 2 diabetes, hypertension, hyperlipidemia, obe sity presenting to the ER with complaint of shortness of breath. Patient is her e on the assistance of her daughter. Daughter mentions increasing shortness of breath over the last week. Says that she can "hear bubbling in her chest." Mariaa smart also complains of a vague pain in both of her lower ribs. No substernal ch est pain. No recent fever, chills. No leg pain or swelling. The history is provided by the patient. Shortness of Breath Associated symptoms: cough and diaphoresis Associated symptoms: no fever and no vomiting Past Medical History: Diagnosis Date Allergic rhinitis [...] times a year Review of Systems Constitutional: Positive for diaphoresis. Negative for chills and fever. HENT: Negative. Eyes: Negative. Respiratory: Positive for cough and shortness of breath. Cardiovascular: Negative for palpitations and leg swelling. Gastrointestinal: Positive for nausea. Negative for vomiting. Genitourinary: Negative. Musculoskeletal: Negative. Skin: Negative. Neurological: Negative for syncope. All other systems reviewed and are negative. Physical Exam BP (!) 141/88 | Pulse 74 | Temp 36.8 C (98.3 F) (Oral) | Resp 13 | Ht 1. 575 m (5' 2") | Wt 95.7 kg (211 lb) | SpO2 96% | BMI 38.59 kg/m Weight Method: Stated Physical Exam Constitutional: She is oriented to person, place, and time. She appears well-dev eloped and well-nourished. No distress. HENT: Head: Normocephalic and atraumatic. Right Ear: External ear normal. Left Ear: External ear normal. Nose: Nose normal. Mouth/Throat: Oropharynx is clear and moist. No oropharyngeal exudate. Eyes: Conjunctivae and EOM are normal. Pupils are equal, round, and reactive to light. Neck: Normal range of motion. Neck supple. Cardiovascular: Normal rate, regular rhythm, normal heart sounds and intact dist al pulses. Exam reveals no gallop and no friction rub. No murmur heard. Pulmonary/Chest: Effort normal and breath sounds normal. No respiratory distress . She has no wheezes. She has no rhonchi. She has no rales. She exhibits no tend erness. Diminished bilaterally Abdominal: Soft. Bowel sounds are normal. There is no tenderness. obese Musculoskeletal: Normal range of motion. She exhibits no edema or tenderness. Neurological: She is alert and oriented to person, place, and time. Skin: Skin is warm and dry. No rash noted. She is not diaphoretic. Psychiatric: She has a normal mood and affect. Nursing note and vitals reviewed. ED Course Procedures MDM Number of Diagnoses or Management Options Chronic obstructive pulmonary disease, unspecified COPD type (HCC): Dyspnea, unspecified type: Diagnosis management comments: Patient updated on labs and imaging. Workup is u nremarkable. Oxygen saturations within normal limits on her normal 2.5L of home O2. Stable for discharge. No indication for steroids or antibiotics at this time. Re commend frequent nebulizer treatments. Return precautions given. Patient acknowledged understanding. Amount and/or Complexity of Data Reviewed Clinical lab tests: ordered and reviewed Tests in the radiology section of CPT: reviewed and ordered EKG interpreted by me: NSR. Nl axis. Intervals wnl. No acute ST segment elevatio n. Results for orders placed or performed during the hospital encounter of 11/18/17 (from the past 24 hour(s)) Comprehensive Metabolic Panel Result Value Ref Range Sodium 142 133 - 147 MEQ/L Potassium 4.4 3.5 - 5.3 MEQ/L Chloride 103 96 - 112 MEQ/L Carbon Dioxide 29 20 - 32 MEQ/L Anion Gap 11 5 - 17 Calcium 9.7 8.4 - 10.5 mg/dL Glucose 157 (H) 70 - 100 mg/dL Protein Total Serum 7.9 6.0 - 8.2 g/dL Albumin 4.3 3.5 - 5.0 g/dL Alkaline Phosphatase 108 42 - 140 IU/L Alanine Aminotransferase 41 13 - 69 IU/L Aspartate Aminotransferase 41 15 - 46 IU/L Bilirubin Total 0.2 0.2 - 1.3 mg/dL Blood Urea Nitrogen 15 7 - 26 mg/dL Creatinine 0.7 0.4 - 1.1 mg/dL GFR Female AA 101 60 - 200 GFR Female Non-AA 84 60 - 200 CBC and Diff (manual diff if necessary) Result Value Ref Range WBC 8.81 4.00 - 11.00 TH/uL RBC 4.36 4.00 - 5.00 MIL/uL Hemoglobin 14.3 12.0 - 15.0 g/dL Hematocrit 42 36 - 45 % MCV 97 80 - 99 fL MCH 33 27 - 34 pg MCHC 34 32 - 36 % RDW 13.5 9.0 - 14.5 % Platelet Count 173 140 - 400 TH/uL MPV 9.9 9.4 - 12.3 fL % Neutrophils 55 45 - 78 % %Lymphocytes 32 15 - 47 % %Monocytes 8 0 - 12 % %Eosinophils 4 0 - 7 % %Basophils 1 0 - 2 % # Granulocytes 4.85 1.7 - 6.8 TH/uL # Lymphocytes 2.83 1.0 - 3.3 TH/uL # Monocytes 0.71 0.2 - 0.9 TH/uL # Eosinophils 0.37 0.0 - 0.4 TH/uL # Basophils 0.05 0.0 - 0.1 TH/uL Troponin 0 hr Result Value Ref Range Troponin <0.01 0.00 - 0.03 ng/mL BNP Result Value Ref Range NTproBNP 55 pg/mL XR Chest single view frontal Final Result Stable left mid lung subsegmental atelectasis or linear fibrosis. No new consolidation. ATTESTATION STATEMENT: The Staff Radiologist has personally reviewed the images and dictated, reviewed, or edited the final report. READING SITE: [facility] I have reviewed all of the labs and radiology studies. ED Clinical Impression 1. Dyspnea, unspecified type 2. Chronic obstructive pulmonary disease, unspecified COPD type (HCC) Patient ED Dispo ED Disposition Discharge Gladis Arteaga MD 11/18/17 [id number] documented in this encounter Plan of Treatment Care Team Description Date [place] [address] [place] [address] [phone] 02/29/2020 Office Visit Urology documented as of this encounter Procedures Comments Procedure Name Priority Date/Time Associated Diag nosis TROPONIN STAT 11/18/2017 4:25 PM CDT NTPROBNP STAT 11/18/2017 4:25 PM CDT COMPREHENSIVE METABOLIC STAT 11/18/2017 PANEL 4:25 PM CDT CBC AND DIFF (MANUAL DIFF STAT 11/18/2017 IF NECESSARY) 4:25 PM CDT XR CHEST SINGLE VIEW STAT 11/18/2017 FRONTAL 4:14 PM CDT PULSE OXIMETRY, STAT 11/18/2017 CONTINUOUS 4:05 PM CDT ECG STAT 11/18/2017 3:32 PM CDT documented in this encounter Results * BNP (11/18/2017 4:25 PM CDT) NTproBNP 55 pg/mL [facility] Comment: [facility] NT-proBNP Reference Ranges: [facility] <50 yr <450 pg/mL 50-75 yr <900 pg/mL >75 yr <1800 pg/mL A cutoff value of 1200 pg/mL is recommended in patients 50 to 70 years of age with a GFR between 30 and 60. NT-proBNP is unreliable in patients with GFR <30. Specimen Blood Performing Organization Address City/State/Zipcode Ph one Number [facility] [address] [facility] [place] [address] [facility] [address] [facility] [place] [facility] [place] [address], [facility] * Troponin 0 hr (11/18/2017 4:25 PM CDT) Pathologist [facility] Troponin <0.01 0.00 - 0.03 ng/mL [facility] Comment: [facility] Troponin Value [facility] Interpretation 0.00 - 0.03 Healthy 0.04 - 0.12 Increased Cardiac Risk >0.12 Myocardial Infarction Troponin may not become elevated until 6 to 8 hours after onset of symptoms. Specimen Blood Performing Organization Address City/State/Zipcode Ph one Number [facility] [address] [facility] [place] [address] [facility] [address] [place] [facility] [place] [facility] [place] [address], [facility] * CBC and Diff (manual diff if necessary) (11/18/2017 4:25 PM CDT) Pathologist [facility] WBC 8.81 4.00 - 11.00 TH/uL [facility] RBC 4.36 4.00 - 5.00 MIL/uL [facility] Hemoglobin 14.3 12.0 - 15.0 g/dL [facility] Hematocrit 42 36 - 45 % [facility] MCV 97 80 - 99 fL [facility] MCH 33 27 - 34 pg [facility] MCHC 34 32 - 36 % [facility] RDW 13.5 9.0 - 14.5 % [facility] Platelet Count 173 140 - 400 TH/uL [facility] MPV 9.9 9.4 - 12.3 fL [facility] % Neutrophils 55 45 - 78 % [facility] %Lymphocytes 32 15 - 47 % [facility] %Monocytes 8 0 - 12 % [facility] %Eosinophils 4 0 - 7 % [facility] %Basophils 1 0 - 2 % [facility] # Granulocytes 4.85 1.7 - 6.8 TH/uL [facility] # Lymphocytes 2.83 1.0 - 3.3 TH/uL [facility] # Monocytes 0.71 0.2 - 0.9 TH/uL [facility] # Eosinophils 0.37 0.0 - 0.4 TH/uL [facility] # Basophils 0.05 0.0 - 0.1 TH/uL [facility] Specimen Blood Performing Organization Address City/State/[facility] Ph one Number [facility] [address] [facility], [place] [phone] [facility] [address] [place] [address], [facility] * Comprehensive Metabolic Panel (11/18/2017 4:25 PM CDT) Sodium 142 133 - 147 MEQ/L [facility] Potassium 4.4 3.5 - 5.3 MEQ/L [facility] Chloride 103 96 - 112 MEQ/L [facility] Carbon Dioxide 29 20 - 32 MEQ/L [facility] Anion Gap 11 5 - 17 [facility] Calcium 9.7 8.4 - 10.5 mg/dL [facility] Glucose 157 (H) 70 - 100 mg/dL [facility] Protein Total 7.9 6.0 - 8.2 g/dL [facility] Serum [facility] Albumin 4.3 3.5 - 5.0 g/dL [facility] Alkaline 108 42 - 140 IU/L [facility] Phosphatase [facility] Alanine 41 13 - 69 IU/L [facility] Aminotransferas [facility] Aspartate 41Comment: Specimen is 15 - 46 IU/L [facility] Amin[facility] slightly hemolyzed which may [facility] e elevate the AST result. [facility] Bilirubin Total 0.2 0.2 - 1.3 mg/dL [facility] Blood Urea 15 7 - 26 mg/dL [facility] Nitrogen [facility] Creatinine 0.7 0.4 - 1.1 mg/dL [facility] eGFR Female AA 101 60 - 200 [facility] Comment: [facility] Chronic Kidney Disease less [facility] than 60 mL/min/1.73 sq.m Kidney failure less than 15 mL/min/1.73 sq.m eGFR Female 84 60 - 200 [facility] Non-AA Comment: [facility] Chronic Kidney Disease less [facility] than 60 mL/min/1.73 sq.m Kidney failure less than 15 mL/min/1.73 sq.m Specimen Blood Performing Organization Address City/State/Zipcode Ph one Number [facility] [address] [facility] [place], [place] [phone] [facility] [address] [facility] [place] [address], [facility] * XR Chest single view frontal (11/18/2017 4:14 PM CDT) Specimen Impressions Performed At Stable left mid lung subsegmental atelectasis or line ar fibrosis. No new [facility] consolidation. ATTESTATION STATEMENT: The Staff Radiologist has personally re viewed the images and dictated, reviewed, or edited the final report. READING SITE: [facility] Narrative Performed At Patient: ISIAH BENÍTEZ Sex#: Paulina # [id number] Jose#: [id number] Location: [place] [address] Procedure Requested: [id number] XR CHEST SINGLE VIEW FRONTAL Reason for Exam: Chest Pain Exam Ordered: 11/18/2017 16 06 Exam Date/Time: 11/18/2017 161 4 Begin exam date/time: 11/18/2017 160 7 XR CHEST SINGLE VIEW FRONTAL INDICATION: Chest Pain COMPARISON STUDY: 08/29/2017. FINDINGS: Lungs: The lung volume is normal. Stabl e left mid lung linear opacities, likely subsegmental atelectasis or line ar fibrosis. No new consolidation. Normal pulmonary vascula ture. Pleura: No pleural effusion or pneumoth orax. Heart and Mediastinum: The cardiomedias tinal silhouette and great vessels are stable. Bones: Stable osseous structures. Procedure Note Interface, Rad Results In - 11/18/2017 4:34 PM CDT Patient: ISIAH BENÍTEZ Sex#: F # [id number] Jose#: [id number] Location: [place] [address] Procedure Requested: [id number] XR CHEST SINGLE VIEW FRONTAL Reason for Exam: Chest Pain Exam Ordered: 11/18/2017 1606 Exam Date/Time: 11/18/2017 1614 Begin exam date/time: 11/18/2017 1607 XR CHEST SINGLE VIEW FRONTAL INDICATION: Chest Pain COMPARISON STUDY: 08/29/2017. FINDINGS: Lungs: The lung volume is normal. Stable left mid lung linear opacities, likely subsegmental atelectasis or linear fibrosis. No new consolidation. Normal pulmonary vasculature. Pleura: No pleural effusion or pneumothorax. Heart and Mediastinum: The cardiomediastinal silhouette and great vessels are stable. Bones: Stable osseous structures. IMPRESSION Stable left mid lung subsegmental atelectasis or linear fibrosis. No new consolidation. ATTESTATION STATEMENT: The Staff Radiologist has personally reviewed the images and dictated, reviewed, or edited the final report. READING SITE: [facility] Performing Organization Address [facility] eveline [facility] * Electrocardiogram (ECG) (11/18/2017 3:32 PM CDT) Specimen Narrative Performed At [facility] Test Date: 2017-11-18 Pat Name: ISIAHYOSSI BENÍTEZ Department: ERS Room: Gender: Female Data Conversion Analyst: [id number] : 1950 Requested By: JANICE MORELAND Order Number: [id number] Reading MD: Measurements Intervals [place] Rate: 77 P: 63 HI: 156 QRS: 65 QRSD: 104 T: 53 QT: 404 QTc: 458 Interpretive Statements SINUS RHYTHM Procedure Note Interface, External Ris In - 11/18/2017 3:33 PM CDT [facility] Test Date: 2017-11-18 Pat Name: ISIAH BENÍTEZ Department: ERS Room: Gender: Female Data Conversion Analyst: [id number] : 1950 Requested By: JANICE MORELAND Order Number: [id number] Reading MD: Measurements Intervals [place] Rate: 77 P: 63 HI: 156 QRS: 65 QRSD: 104 T: 53 QT: 404 QTc: 458 Interpretive Statements SINUS RHYTHM Performing Organization Address [facility] eveline MORALES documented in this encounter Visit Diagnoses Diagnosis Dyspnea, unspecified type Chronic obstructive pulmonary disease, unspecified COPD type (HCC) documented in this encounter Administered Medications Action Date Dose Rate Site Medication Order MAR Action 11/18/2017 4:46 PM CDT 324 mg aspirin chewable tablet 324 mg Given 324 mg, Oral, Once, Ju 11/18/17 at 1607 , For 1 dose, If not given/taken BATCH PLANT SUPERVISOR and chart., documented in this encounter Additional Health Concerns Resolved Time Infection Noted Time 04/19/2018 12:13 PM CDT Influenza 08/30/2017 10:13 AM PLANNING DIRECTOR documented as of this encounter
--- OUTSIDE RECORDS SUMMARY | 2019-11-28 22:24 | XMS REPORT | Encounter Summary ---
Author Author [facility] Organization [facility] Address Unknown Phone Unavailable Care Team Providers Care Vice President Lending Name Role Phone Ebony Sharp MD PCP Encounter Details Care Team Description Date Type Department Ebony Sharp MD [address] [facility] [address] [place], [place] [phone] Hyperlipidemia, unspecified hyperlipidem ia type; Type 2 diabetes mellitus with hyperglycemia, 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); Need for hepatitis C screening test; Routine adult health maintenance 01/06/2018 Lab [facility] [place] [address] [facility] [address] [place], [place] [id number] Social History Date Tobacco Use Types Packs/Day [...] Description Date [place] [address] [place], [place] [id number] 02/29/2020 Office Visit Urology documented as of this encounter Visit Diagnoses Diagnosis Hyperlipidemia, unspecified hyperlipide prasanna type Type 2 diabetes mellitus with hyperglyc emia, 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) Need for hepatitis C screening test Special screening examination for other specified viral diseases Routine adult health maintenance documented in this encounter Additional Health Concerns Resolved Time Infection Noted Time 04/19/2018 12:13 PM CDT Influenza 08/30/2017 10:13 AM CANNERY WORKER documented as of this encounter
--- OUTSIDE RECORDS SUMMARY | 2019-11-28 22:24 | XMS REPORT | Encounter Summary ---
Author Author [facility] Organization [facility] Address Unknown Phone Unavailable Care Team Providers Care Drilling Rig Operator Name Role Phone Ebony Sharp MD PCP Encounter Details Care Team Description Date Type Department Adelaida Olivas MD [address] [facility] [address] [place] [address] 12/17/[address] [facility] [address] [facility] [address] [place], [place] [phone] Social History Date Tobacco Use Types Packs/Day [...] Clinic Note - Adelaida Olivas MD - 12/17/2017 3:51 PM CDT Phone Note Call from Patient Summary of call: Patient called script line stating she has been calling for thr ee days. She is requesting a refill of "Percocet #3". No one has called her. She uses [facility] [address] Call taken by: Aline Joy on December 17, 2017 3:52 PM Follow-up for Phone Call Follow-up Details: left a message sent medication to [facility] on [address] Follow-up by: Alice Mello on December 17, 2017 4:41 PM Prescriptions: TYLENOL WITH CODEINE #4 300-60 MG ORAL TABLET (ACETAMINOPHEN-CODEINE) 1-2 tabs p o q 4-6 hours prn #30 Tablet x 0 Entered by: Alice Mello Authorized by: Adelaida Olivas MD Signed by: Alice Mello on 12/17/2017 Method used: Faxed to ... [facility]* (retail) [address] [place] [address] Ph: [phone] Fax: [phone] RxID: [id number] documented in this encounter Plan of Treatment Care Team Description Date [place] [address], [place] [address] [phone] 02/29/2020 Office Visit Urology documented as of this encounter Visit Diagnoses Not on filedocumented in this encounter Additional Health Concerns Resolved Time Infection Noted Time 04/19/2018 12:13 PM CDT Influenza 08/30/2017 10:13 AM HOME CARE COORDINATOR 08/30/2019 1:09 PM HOME CARE COORDINATOR Influenza - Rule Out 08/30/2019 11:32 AM HOME CARE COORDINATOR 09/17/2019 8:17 AM HOME CARE COORDINATOR RSV 08/31/2019 6:35 PM HOME CARE COORDINATOR documented as of this encounter
--- OUTSIDE RECORDS SUMMARY | 2019-11-28 22:24 | XMS REPORT | Encounter Summary ---
Author Author [facility] Organization [facility] Address Unknown Phone Unavailable Care Team Providers Care Tank Crewmember Name Role Phone Ebony Sharp MD PCP Encounter Details Care Team Description Date Type Department Adelaida Olivas MD [address] [facility] [address] [place] [address] 02/18/2018 [facility] [address] [facility] [address] [place], [place] [id number] Social History Date Tobacco Use Types Packs/Day [...] Clinic Note - Adelaida Olivas MD - 02/18/2018 9:02 AM CDT Phone Note Outgoing Call Call placed by: Gege Avendano on February 18, 2018 9:11 AM Summary of call: [facility] faxed back that they are out of network for this patien ts insurance. is there another pain center that you prefer? Follow-up for Phone Call Follow-up Details: Dr. Goldberg Follow-up by: Carlos Eduardo Walton on February 18, 2018 11:22 AM Additional Follow-up for Phone Call Additional Follow-up Details: Oscar Bautista Dr Bobby. Additional Follow-up by: Adelaida Olivas MD on February 20, 2018 3:41 PM Additional Follow-up for Phone Call Additional Follow-up Details: faxing info to Dr Rocael Bautista. Additional Follow-up by: Gege Avendano on February 22, 2018 1:44 PM Additional Follow-up for Phone Call Additional Follow-up Details: faxed completed at [phone] Additional Follow-up by: Gege Avendano on February 22, 2018 3:12 PM documented in this encounter Plan of Treatment Care Team Description Date [place] [address] [place] [address] [phone] 02/29/2020 Office Visit Urology documented as of this encounter Visit Diagnoses Not on filedocumented in this encounter Additional Health Concerns Resolved Time Infection Noted Time 04/19/2018 12:13 PM CDT Influenza 08/30/2017 10:13 AM SHOP TAILOR 08/30/2019 1:09 PM SHOP TAILOR Influenza - Rule Out 08/30/2019 11:32 AM SHOP TAILOR 09/17/2019 8:17 AM SHOP TAILOR RSV 08/31/2019 6:35 PM SHOP TAILOR documented as of this encounter
--- OUTSIDE RECORDS SUMMARY | 2019-11-28 22:25 | XMS REPORT | Encounter Summary ---
Author Author [facility] Organization [facility] Address Unknown Phone Unavailable Care Team Providers Care Dog Control Officer Name Role Phone Ebony Sharp MD PCP Encounter Details Care Team Description Date Type Department Adelaida Olivas MD [address] [facility] [address] [place] [address] 10/14/2017 [facility] [address] [facility] [address] [place], [place] [id number] Social History Date Tobacco Use Types Packs/Day [...] Clinic Note - Adelaida Olivas MD - 10/14/2017 9:03 AM WATERWORKS CHIEF ENGINEER Phone Note Call from Pharmacy Summary of call: [facility] [phone], would like a clarification on the script for lidoderm patch. Call taken by: Lilian Greenwood on October 14, 2017 9:04 AM Follow-up for Phone Call Follow-up Details: I spoke with the staff of [facility] and they stated the lidoderm pa tches needed prior auth. PA information submitted on covermymeds Follow-up by: Rg Lopez on October 14, 2017 11:02 AM Additional Follow-up for Phone Call Additional Follow-up Details: Patient was seen in office today. Additional Follow-up by: Rg Lopez on October 25, 2017 1:23 PM RWORKS CHIEF ENGINEER documented in this encounter Plan of Treatment Care Team Description Date [place] [address] [place] [address] [phone] 02/29/2020 Office Visit Urology documented as of this encounter Visit Diagnoses Not on filedocumented in this encounter Additional Health Concerns Resolved Time Infection Noted Time 04/19/2018 12:13 PM CDT Influenza 08/30/2017 10:13 AM WATERWORKS CHIEF ENGINEER 08/30/2019 1:09 PM WATERWORKS CHIEF ENGINEER Influenza - Rule Out 08/30/2019 11:32 AM WATERWORKS CHIEF ENGINEER 09/17/2019 8:17 AM WATERWORKS CHIEF ENGINEER RSV 08/31/2019 6:35 PM WATERWORKS CHIEF ENGINEER documented as of this encounter
--- OUTSIDE RECORDS SUMMARY | 2019-11-28 22:25 | XMS REPORT | Encounter Summary ---
Author Author [facility] Organization [facility] Address Unknown Phone Unavailable Care Team Providers Care Home Insurance Agent Name Role Phone Ebony Sharp MD PCP Encounter Details Care Team Description Date Type Department Adelaida Olivas MD [address] [facility] [address] [place] [address] 11/16[facility]2017 [facility] [address] [facility] [address] [place], [place] [id number] Social History Date Tobacco Use Types Packs/Day [...] Clinic Note - Adelaida Olivas MD - 11/16/2017 2:20 PM CDT Phone Note Call from Patient Summary of call: Patient left message on script voicemail requesting refill of h ydrocodone. [phone] Call taken by: Kate Washington on November 16, 2017 2:20 PM Follow-up for Phone Call Follow-up Details: I left a message for a return phone call. 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
--- OUTSIDE RECORDS SUMMARY | 2019-11-28 22:25 | XMS REPORT | Encounter Summary ---
Author Author [facility] Organization [facility] Address Unknown Phone Unavailable Care Team Providers Care Churn Tender Name Role Phone Ebony Sharp MD PCP Encounter Details Care Team Description Date Type Department Ebony Sharp MD [address] [facility] [address] [place] [address] [phone] 09/07/2017 Documentation [facility] (walk-in clinic) [address] [facility] [address] [place], [place] [phone] Social History Date Tobacco Use Types Packs/Day [...] Description Date [place] [address] [place] [address] [phone] 02/29/2020 Office Visit Urology documented as of this encounter Visit Diagnoses Not on filedocumented in this encounter Additional Health Concerns Resolved Time Infection Noted Time 04/19/2018 12:13 PM CDT Influenza 08/30/2017 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
--- OUTSIDE RECORDS SUMMARY | 2019-11-28 22:25 | XMS REPORT | Encounter Summary ---
Author Author [facility] Organization [facility] Address Unknown Phone Unavailable Care Team Providers Care Air Quality Technician Name Role Phone Ebony Sharp MD PCP Encounter Details Care Team Description Date Type Department Adelaida Olivas MD [address] [facility] [address] [place] [address] [phone] Left ankle pain 10/07/2017 Imaging [facility] Radiol ogy Appointment [address] [place] [phone] Social History Date Tobacco Use Types Packs/Day [...] Description Date [place] [address] [place] [address] [phone] 02/29/2020 Office Visit Urology documented as of this encounter Procedures Comments Procedure Name Priority Date/Time Associated Diag nosis XR ANKLE MIN 3 VIEWS LEFT Routine 10/07/2017 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 Alignment remains MCKESSON unchanged. Compression screw and sidepl ate with screws are unchanged in position. Narrative Performed At Patient: ISIAH BENÍTEZ Sex#: Paulina # [id number] Jose#: [id number] Location: XR Procedure Requested: [id number] XR ANKLE MIN 3 VIEWS LEFT Reason for Exam: Left ankle pain Exam Ordered: 10/07/2017 14 17 Exam Date/Time: 10/07/2017 142 7 Begin exam date/time: 10/07/2017 141 7 Reading Site: [facility] Exam: XR ANKLE MIN 3 VIEWS LEFT, views. Date of exam: 10/07/2017 2:27 PM History: Left ankle pain. Findings: Comparison studies: Intraoperative imag es of April 09, 2017. The radiographs demonstrate surgical ch anges status post tibiotalar arthrodesis. There is a cannulated lag screw across the tibia into the talus. There is a lateral fusion plate with screws in the diaphysis of the tibia and in the talus. There is a bone stimulator and electrodes. There is redemonstration of distal fibu lar resection unchanged. No new fractures. No dislocation. 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 Date of exam: 10/07/2017 2:27 PM History: Left ankle pain. Findings: Comparison studies: Intraoperative images of April 09, 2017. The radiographs demonstrate surgical changes status post tibiotalar arthrodesis. There is a cannulated lag screw across the tibia into the talus. There is a lateral fusion plate with screws in the diaphysis of the tibia and in the talus. There is a bone stimulator and electrodes. There is redemonstration of distal fibular resection unchanged. No new fractures. No dislocation. IMPRESSION Status post tibiotalar arthrodesis. Alignment remains unchanged. Compression screw and sideplate with screws are unchanged in position. 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
--- OUTSIDE RECORDS SUMMARY | 2019-11-28 22:25 | XMS REPORT | Encounter Summary ---
Author Author [facility] Organization [facility] Address Unknown Phone Unavailable Care Team Providers Care Caustic Operator Name Role Phone Ebony Sharp MD PCP Reason for Visit * Reason Comments Shortness of Breath * Auth/Cert Referred By Contact Referred To Contact Status Reason Specialty Diagnoses / Procedures Diagnoses Influenza Encounter Details Care Team Description Date Type Department Omar Vásquez MD [address] [place] [address] Ralf Pugh MD [address] [place], [place] [id number] Santa Julian MD [address] [place], [place] [phone] Preethi Zavala MD [address] [place], [place] [phone] Maikel Gasca MD [address] [place], [place] [id number] Influenza (Primary Dx); COPD exacerbation (HCC); Type 2 diabetes mellitus without complication, 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); Influenza A 08/29/2017 [facility] 09/01/2017 [address] [place] [address] Social History Date Tobacco Use [...] Signs Reading Time Taken Comments Vital Sign 159/83 09/01/2017 8:07 AM [employer] Nurse notified Blood Pressure 61 09/01/2017 11:30 AM [employer] Pulse 36.4 C (97.5 F) 09/01/2017 8:07 AM [employer] Temperature 18 09/01/2017 8:07 AM [employer] Respiratory Rate 96% 09/01/2017 11:30 AM [employer] Oxygen Saturation - - Inhaled Oxygen Concentration 95.7 kg (211 lb) 08/29/2017 7:44 AM [employer] Weight 157.5 cm (5' 2") 08/29/2017 7:44 AM [employer] Height 38.59 08/29/2017 7:44 AM [employer] Body Mass Index documented in this encounter Discharge Summaries * Maikel Gasca MD - 09/01/2017 10:13 AM [employer] Patient Name: Isiah Benítez Age: 67 y.o. Sex: female Admit Date: 08/29/2017 Date of Discharge: 09/01/2017 PCP of Record: Ebony Sharp MD Discharge Diagnosis: -- Copd exacerbation -- DM -- Influenza -- HTN Discharge meds: see below Discharge Condition: stable Hospital Course: Ms. Isiah Benítez is a 67 y.o. female who was admitted on 018 with Shortness of Breath. Pt was positive for influenza A and copd exacerbat ion. Started on duonebs and steroids. tamiflu started as well. pt continue to improve. Steroids changed to po. Pt back on her home o2 requirement. Pt disc harged on 09/01/17 in stable condition with steroid taper. Time: total time for discharge was greater than 30 minutes Discharge Instructions: Follow-Up Care/Labs Appointments: -- PCP in 2-4 weeks. Current Discharge Medication List START taking these medications Details hydrocodone-guaifenesin 2.5-200 mg/5 mL Soln Take 5 mL/1.7m2 by mouth every 8 (e ight) hours as needed. Qty: 118 mL, Refills: 0 oseltamivir (TAMIFLU) 75 MG capsule Take 1 capsule (75 mg total) by mouth 2 (two ) times a day. Qty: 4 capsule, Refills: 0 predniSONE (DELTASONE) 10 MG tablet Take 1 tablet (10 mg total) by mouth See Adm in Instructions. Qty: 40 tablet, Refills: 0 Comments: Take 4 tablets daily for 4 days, then take 3 tablets daily for 3 days , then take 2 tablets daily for 2 days, then take 1 tablet daily for 1 day and d /c. CONTINUE these medications which have NOT CHANGED Details albuterol (VENTOLIN HFA) 90 mcg/actuation HFA inhaler INHALE 1 PUFF EVERY 4 HOUR S NEEDED FOR WHEEZING Qty: 18 g, Refills: 2 amitriptyline (ELAVIL) 25 MG tablet Take 1 tablet (25 mg total) by mouth nightly . Qty: 90 tablet, Refills: 1 amLODIPine (NORVASC) 2.5 MG tablet Take 2 tablets (5 mg total) by mouth daily. T hina one daily. Qty: 90 tablet, Refills: 0 ASCORBIC ACID, VITAMIN C, 500 MG tablet TK 1 T PO D Refills: 0 BIOTIN ORAL Take 2 tablets by mouth daily. celecoxib (CELEBREX) 200 MG capsule Take 200 mg by mouth daily. citalopram (CELEXA) 20 mg tablet Take 1 tablet (20 mg total) by mouth daily. Qty: 90 tablet, Refills: 1 docusate sodium (COLACE) 100 MG capsule Take 1 capsule (100 mg total) by mouth 2 (two) times a day as needed for constipation (first line therapy with polyethle ne glycol). Qty: 60 capsule, Refills: 0 fluticasone-vilanterol (BREO ELLIPTA) 200-25 mcg/actuation INHALER Inhale 1 puff daily. Qty: 60 each, Refills: 2 gabapentin (NEURONTIN) 300 MG capsule Take 1 capsule (300 mg total) by mouth 3 ( three) times a day. Qty: 270 capsule, Refills: 1 insulin glargine (LANTUS) 100 unit/mL injection Inject 15 Units under the skin n ightly. Qty: 10 mL, Refills: 0 insulin syringe (BD ULTRA-FINE) 0.3 mL 31 gauge x 5/16 Inject under the skin jcarlos ly. use as directed Qty: 100 each, Refills: 0 ipratropium-albuterol (DUO-NEB) 0.5-3 mg/3 mL nebulizer Inhale 3 mL 4 (four) joann es a day. Qty: 360 mL, Refills: 11 metaxalone (SKELAXIN) 800 MG tablet Take 1 tablet by mouth nightly. Refills: 0 metoprolol tartrate (LOPRESSOR) 100 MG tablet Take 1 tablet (100 mg total) by mo ut 2 (two) times a day. Qty: 180 tablet, Refills: 0 NUCYNTA 50 mg tablet Take 50 mg by mouth every 12 (twelve) hours. OXYGEN THERAPY 2 L/min as needed. simvastatin (ZOCOR) 20 MG tablet Take 1 tablet (20 mg total) by mouth nightly. Qty: 90 tablet, Refills: 1 Vital Signs: Temp: 36.4 C (97.5 F) Pulse: 71 Resp: 18 BP:BP: (!) 159/83 (Nurse notified) O2 Sat:SpO2: 97 % Physical Exam: Gen: A/Ox3, calm, improved breath sounds, , CV: RRR, no murmurs, Pulm: Mild wheezes in bases Abd: S/NT/+bs Ext: No edema Electronically signed by: Maikel Gasca 09/01/2017 10:13 AM cc: Ebony Sharp MD [employer] documented in this encounter Discharge Instructions * Instructions* Vivian Friend RN - 09/01/2017 The Flu (Influenza) The virus that causes the flu spreads through the air in droplets when someone w ho has the flu coughs, sneezes, laughs, or talks. The flu (influenza) is an infection that affects your respiratory tract. This tr act is made up of your mouth, nose, and lungs, and the passages between them. Un like a cold, the flu can make you very ill. And it can lead to pneumonia, a seri ous lung infection. The flu can have serious complications and even cause . Who is at risk for the flu? Anyone can get the flu. But you are more likely to become infected if you: Have a weakened immune system Work in a healthcare setting where you may be exposed to flu germs Live or work with someone who has the flu Havent had an annual flu shot How does the flu spread? The flu is caused byavirus. The virusspreads through the air in droplets w hen someone who has the flu coughs, sneezes, laughs, or talks. You can become in fected when you inhale theseviruses directly. You can also become infected whe n you touch a surface on which the droplets have landed and then transfer the ge esther to your eyes, nose, or mouth. Touching used tissues, or sharing utensils, dr inking glasses, or a toothbrush from an infected person can expose you to flu vi ruses, too. What are the symptoms of the flu? Flu symptoms tend to come on quickly and may last a few days to a few weeks. The y include: Fever usually higher than 100.4F (38C)and chills Sore throat and headache Dry cough Runny nose Tiredness and weakness Muscle aches Who is at risk for flu complications? For some people, the flu can be very serious. The risk for complications is grea ter for: Children younger thanage 5 Adultsages 65and older People with a chronic illness such as diabetes or heart, kidney, or lung dise ase People who live in a custodial or long-term care facility How is the flu treated? The flu usually gets better after 7 days or so. In some cases, yourhealthcare providermay prescribe an antiviral medicine. This may help you get well a daron le sooner. For the medicine to help, you need to take it as soon as possible (id eally within 48 hours)after your symptoms start. If you develop pneumonia or o ther serious illness, you may need to stay in the hospital. Easing flu symptoms Drink lots of fluids such as water, juice, and warm soup. A good rule is to d rink enough so that you urinate your normal amount. Get plenty of rest. Ask yourhealthcare providerwhat to takefor fever and pain. Call yourprovider if your fever is 100.4F (38C) or higher, or you becom e dizzy, lightheaded, or short of breath. Takingsteps to protect others Wash your hands often, especially after coughing or sneezing. Or clean your h ands with an alcohol-based handcleaner containing at least 60% alcohol. Cough or sneeze into a tissue. Then throw the tissue away and wash your hands . If you dont have a tissue, cough and sneeze into your elbow. Stay home untilat least 24 hours after you no longer have a fever or chills . Be sure the fever isnt being hidden by fever-reducing medicine. Dont share food, utensils, drinking glasses, or a toothbrush with others. Ask yourhealthcare provider ifothers in your household should get antivir al medicine to help them avoid infection. How can the flu be prevented? One of the best ways to avoid the flu is to get a flu vaccine each year. The virus that causes the flu changes from year to year. For that reason, healthcare providers recommend getting the flu vaccine each year, as soon as it's available in your area. The vaccineisgiven as a shot. Yourhealthcare providercan tell you which vaccine is right for you.A nasal spray is also available but isnotrecommended for the 4259-2945 flu season. The CDC says this is because the nasal spray did not seem to protect against the flu over the last several fl u seasons. In the past, it was meant for people ages 2 to 49. Wash your hands often. Frequent handwashing is a proven way to help prevent i nfection. Carry an alcohol-based hand gel containing at least 60% alcohol. Use it when you can't use soap and water. Then wash your hands as soon as you can. Avoid touching your eyes, nose, and mouth. At home and work, clean phones, computer keyboards, and toys often with disin fectant wipes. If possible, avoid close contact with others who have the flu or symptoms of the flu. Handwashing tips Handwashing is one of the best ways to prevent many common infections. If you ar e caring for or visiting someone with the flu, wash your hands each time you ent er and leave the room. Follow these steps: Use warm water and plenty of soap. Rub your hands together well. Clean the whole hand, including under your nails, between your fingers, and u p the wrists. Wash for at least 15seconds. Rinse, letting the water run down your fingers, not up your wrists. Dry your hands well. Use a paper towel to turn off the faucet and open the do or. Using alcohol-based hand cell reliner Alcohol-based handcleaners are also a good choice. Use them when you can't use soap and water. Follow these steps: Squeeze about a tablespoon of gel into the palm of one hand. Rub your hands together briskly, cleaning the backs of your hands, the palms, between your fingers, and up the wrists. Rub until the gel is gone and your hands are completely dry. Preventing the flu in healthcare settings The flu is a special concern for people in hospitals and long-term care [facility] . To help prevent the spread of flu, many hospitals and nursing homes take the se steps: Healthcare providers wash their hands or use an alcohol-based hand shield cleaner be fore and after treating each patient. People with the flu have private rooms and bathrooms or share a room with diego eone with the same infection. People who are at high risk for the flu but don't have it are encouraged to g et theflu and pneumonia vaccines. All healthcare workers are encouraged or required toget flu shots. Date Last Reviewed: 07/23/201619996682-9641 [employer]. [address] [place] [address] 7. All rights reserved. This information is not intended as a substitute for pro fessional medical care. Always follow your healthcare professional's instruction s. * Attachments The following attachments cannot be sent through Care Everywhere.* Oseltamivir capsules (Faroese) * PREDNISONE ORAL TABLET (ARMENIAN) documented in this encounter Medications at Time [...] OXYGEN THERAPY 2 L/min as 0 needed. 09/01/2017 09/11/2017 predniSONE (DELTASONE) 10 Take 1 tablet 40 tablet 0 MG tablet (10 mg total) by mouth See Admin Instructions. 08/26/2017 08/28/2019 albuterol (VENTOLIN HFA) INHALE 1 [...] as of this encounter Progress Notes * Isidra Pathak LCSW - 08/31/2017 4:46 PM [employer] 08/31/17 1645 Discharge Planning Anticipated discharge destination Home Self Care Multidisciplinary Discharge Rounds Disciplines Present Dowel Maker;Hospitalist RN;Physician;Rehab;Social Work Discharge Comments HSC in 1-2 days [employer] * Maikel Gasca MD - 08/31/2017 12:10 PM [employer] [facility] Hospitalist - Progress Note Patient Name: Isiah Do Board Account No: [id number] Date of : 1950 Date of Admission: 08/29/2017 8:43 AM Subjective Follow up regarding COPD exacerbation and influenza A. Still with coughing. States that it has improved but not at baseline. Still so b as well. Mild wheeze. Denies any fever overnight. Still weak overall. No c hest pain. No abd pain. Review of Systems: A 4-point review of systems was performed and was negative ex cept as noted above. Objective Vital Signs: Temp: 36.4 C (97.6 F) Pulse: 64 Resp: 18 BP: (!) 163/89 SpO2: 9 6 % Height: 157.5 cm (5' 2") Weight: 95.7 kg (211 lb) I/O last 24 Hours: In: 360 [P.O.:360] Out: 700 [Urine:700] Physical Exam: Gen: Calm, cooperative CV: RRR, Resp: End exp wheezes in bases. Abd: S/ND/NT, +BS Ext: No c/c/e Skin: Warm, dry, & intact with no obvious rashes or significant lesions Neuro: A/Ox4, no focal neurologic deficits I have personally reviewed the patient's vital signs, laboratory/pathology/cultu re results (as indicated), current inpatient medications and system support analyst notes with pertainent findings noted within the assessment/plan. Assessment/Plan Ms. Isiah Benítez is a 67 y.o. female who was admitted on 08/29/2017 with Shortnes s of Breath. Pt was positive for influenza A and copd exacerbation. Started on duonebs and steroids. tamiflu started as well. Continue supportive care. Problems addressed with today's visit include: COPD exacerbation (HCC) Change steroids to po duonebs tamiflu Supportive care. Diabetes mellitus, type II (HCC) Elevated Increase lantus and ssi. Influenza A Continue tamfilu Benign essential HTN Normotensive Continue home meds See my orders for additional details regarding this patients treatment plan. Room: [address] [place] [address] Diet: Diet-Consistent Carbohydrate (75 gm); Low Sodium 2 gm Code Status: Full Code VTE Prevention: Appropriate VTE orders and/or documentation has been completed for this patient. Ballard Catheter: N/A Scheduled Meds: amitriptyline 25 mg Oral Nightly amLODIPine 5 mg Oral Daily celecoxib 200 mg Oral Daily citalopram 20 mg Oral Daily fluticasone-vilanterol 1 puff Inhalation Daily gabapentin 300 mg Oral TID guaiFENesin 1,200 mg Oral BID heparin (porcine) 5,000 Units Subcutaneous Q8H insulin glargine 15 Units Subcutaneous Nightly insulin lispro 2-12 Units Subcutaneous 4 times daily before meals and night ly ipratropium-albuterol 3 mL Inhalation 4x daily metaxalone 800 mg Oral Nightly methylPREDNISolone sodium succinate 40 mg Intravenous Q8H TUYET metoprolol tartrate 100 mg Oral BID oseltamivir 75 mg Oral BID pravastatin 40 mg Oral Nightly [START ON 09/01/2017] predniSONE 40 mg Oral Daily Continuous Infusions: sodium chloride 50 mL/hr (08/31/17 0517) PRN Meds: acetaminophen OR acetaminophen, aluminum-magnesium hydroxide-simethicone, be nzocaine-menthol, benzonatate, bisacodyl, dextrose 50% OR dextrose 50% OR* * dextrose 10%, docusate sodium, glucagon OR glucagon, ipratropium-albuterol , miconazole nitrate, ondansetron, polyethylene glycol, promethazine-codeine, so dium chloride, traMADol Maikel Gasca MD [facility] Hospitalist Please page through physician paging. . [employer] * Isidra Pathak LCSW - 08/31/2017 10:20 AM [employer] 08/31/17 1019 Discharge Planning Anticipated discharge destination Home Self Care Multidisciplinary Discharge Rounds Disciplines Present Dowel Maker;Epidemiology Investigator;Social Work;Primary guest services assistant Comments HSC in 1-2 days [employer] * Preethi Zavala MD - 08/30/2017 3:09 PM [employer] [facility] Hospitalist - Progress Note Patient Name: Isiah Do Board Account No: [id number] Date of : 1950 Date of Admission: 08/29/2017 8:43 AM Subjective Follow up regarding COPD exacerbation and influenza A. Patient states that she feels worse today. Has cough productive of scanty sputu m. Has also some chest pain with coughing. Has been afebrile. Denies any abdo chas pain no nausea vomiting. Denies any wheezing at home before this illness . Review of Systems: A 4-point review of systems was performed and was negative ex cept as noted above. Objective Vital Signs: Temp: 36.5 C (97.7 F) Pulse: 73 Resp: 18 BP: 140/63 SpO2: 97 % Height: 157.5 cm (5' 2") Weight: 95.7 kg (211 lb) I/O last 24 Hours: In: 1220 [P.O.:1220] Out: 400 [Urine:400] Physical Exam: Gen: Calm, cooperative CV: RRR, S1 & S2 normal, no murmurs, gallops, or rubs, 2+ pulses all extremities Resp: Bilateral inspiratory rhonchi Abd: S/ND/NT, +BS Ext: No c/c/e Skin: Warm, dry, & intact with no obvious rashes or significant lesions Neuro: A/Ox4, no focal neurologic deficits I have personally reviewed the patient's vital signs, laboratory/pathology/cultu re results (as indicated), current inpatient medications and system support analyst notes with pertainent findings noted within the assessment/plan. Assessment/Plan Ms. Isiah Benítez is a 67 y.o. female who was admitted on 08/29/2017 with Shortnes s of Breath. Problems addressed with today's visit include: COPD exacerbation (HCC) CXR negative for acute findings + Inf A. Previous tobacco use Change steroids to IV. Patient having increased wheezing. Mucinex BID Scheduled duonebs RATE O2 to keep sats greater than 90% Diabetes mellitus, type II (HCC) Blood sugars in one-teens at home Continue home dose of Lantus Will follow accu checks and provide Humalog correction scale. Influenza A Sx for over a week, but will treat with Tamiflu Change steroids to IV. Supportive care Benign essential HTN Normotensive Continue home meds See my orders for additional details regarding this patients treatment plan. Room: [address] [place] [address] Diet: Diet-Consistent Carbohydrate (75 gm); Low Sodium 2 gm Code Status: Full Code VTE Prevention: Appropriate VTE orders and/or documentation has been completed for this patient. Ballard Catheter: N/A Scheduled Meds: amitriptyline 25 mg Oral Nightly amLODIPine 5 mg Oral Daily celecoxib 200 mg Oral Daily citalopram 20 mg Oral Daily fluticasone-vilanterol 1 puff Inhalation Daily gabapentin 300 mg Oral TID guaiFENesin 1,200 mg Oral BID heparin (porcine) 5,000 Units Subcutaneous Q8H insulin glargine 10 Units Subcutaneous Nightly insulin lispro 1-6 Units Subcutaneous 4 times daily before meals and nightl y ipratropium-albuterol 3 mL Inhalation 4x daily metaxalone 800 mg Oral Nightly methylPREDNISolone sodium succinate 40 mg Intravenous Q8H TUYET metoprolol tartrate 100 mg Oral BID oseltamivir 75 mg Oral BID pravastatin 40 mg Oral Nightly Continuous Infusions: sodium chloride 50 mL/hr (08/30/17 0900) PRN Meds: acetaminophen OR acetaminophen, aluminum-magnesium hydroxide-simethicone, be nzocaine-menthol, benzonatate, bisacodyl, dextrose 50% OR dextrose 50% OR* * dextrose 10%, docusate sodium, glucagon OR glucagon, ketorolac, miconazole nitrate, ondansetron, polyethylene glycol, promethazine-codeine, sodium chlorid e Preethi Zavala MD [facility] Hospitalist Please page through physician paging. . [employer] documented in this encounter H&P Notes * Lilibeth Redmond RN CORONER TRANSPORT TECHNICIAN - 08/29/2017 1:03 PM [employer] [facility] Hospitalist - History & Physical Patient Name: Isiah Benítez Account No: [id number] Date of : 1950 Date of Admission: 08/29/2017 8:43 AM Primary Care Physician: Ebony Sharp MD; Subjective Chief Complaint: Shortness of Breath History of Present illness: Ms. Isiah Benítez is a 67 y.o. female with hx of CUPOLA CHARGER D, DM and HTN who presented with shortness of breath. Onset of symptoms were a week with nasal congestion, cough, nasal drainage, subjective fever, body aches and dyspnea. Treated with duo nebs and coricidin and has 2 L prn O2 at home wi thout much improvement. Nothing makes her symptoms worse, except she has chest pain when she is coughing, increased coughing this AM so she presented to ER. S he has been around her grandchildren who have similar symptoms. She received h er flu shot this season. Review of Systems: A 10-point review of systems was performed and was negative e xcept as noted above. Past Medical History: She has a past medical history of Allergic rhinitis; Anxie ty; Bronchitis, chronic (); Cataract (2011, 2012); Chronic pain disorder; CUPOLA CHARGER D (chronic obstructive pulmonary disease) (); Depression; Diabetes mellitus, type II (); Endometriosis; Fractures (1998); Hyperlipidemia; Hypertension; Ob esity; On home oxygen therapy; Osteoarthritis; Sleep apnea; Urinary calculi; and Urinary tract infection. Past Surgical History: She has a past surgical history that includes se ction, classic; Cholecystectomy; Hysterectomy; Oophorectomy; Colonoscopy; Append ectomy; Tonsillectomy; Cataract extraction w/ intraocular lens implant (Bilater al); Ankle fracture surgery (Left, 1998); Total knee arthroplasty (Left, 2009); Total knee arthroplasty (Right, 2010); and REMOVAL, HARDWARE, FOOT OR ANKLE (Lef t, 04/09/2017). Family History: She indicated that the status of her mother is unknown. She dara cated that the status of her father is unknown. Her family history includes Cancer in her father and mother; Stroke in her [facility] er and mother. Social History: She reports that she quit smoking about 7 years ago. Her smoking use included Cigarettes. She has a 6.60 pack-year smoking history. She has neve r used smokeless tobacco. She reports that she drinks alcohol. She reports that she does not use drugs. Allergies: She is allergic to lisinopril; metformin; and sulfa (sulfonamide anti biotics). Prior to Admission medications Medication Sig albuterol (VENTOLIN HFA) 90 mcg/actuation HFA inhaler INHALE 1 PUFF EVERY 4 HOUR S NEEDED FOR WHEEZING amitriptyline (ELAVIL) 25 MG tablet Take 1 tablet (25 mg total) by mouth nightly . amLODIPine (NORVASC) 2.5 MG tablet Take 2 tablets (5 mg total) by mouth daily. T hina one daily. ASCORBIC ACID, VITAMIN C, 500 MG tablet TK 1 T PO D BIOTIN ORAL Take 2 tablets by mouth daily. celecoxib (CELEBREX) 200 MG capsule Take 200 mg by mouth daily. citalopram (CELEXA) 20 mg tablet Take 1 tablet (20 mg total) by mouth daily. docusate sodium (COLACE) 100 MG capsule Take 1 capsule (100 mg total) by mouth 2 (two) times a day as needed for constipation (first line therapy with polyethle ne glycol). fluticasone-vilanterol (BREO ELLIPTA) 200-25 mcg/actuation INHALER Inhale 1 puff daily. gabapentin (NEURONTIN) 300 MG capsule Take 1 capsule (300 mg total) by mouth 3 ( three) times a day. insulin glargine (LANTUS) 100 unit/mL injection Inject 15 Units under the skin n ightly. insulin syringe (BD ULTRA-FINE) 0.3 mL 31 gauge x 5/16 Inject under the skin jcarlos ly. use as directed ipratropium-albuterol (DUO-NEB) 0.5-3 mg/3 mL nebulizer Inhale 3 mL 4 (four) joann es a day. metaxalone (SKELAXIN) 800 MG tablet Take 1 tablet by mouth nightly. metoprolol tartrate (LOPRESSOR) 100 MG tablet Take 1 tablet (100 mg total) by mo uth 2 (two) times a day. NUCYNTA 50 mg tablet Take 50 mg by mouth every 12 (twelve) hours. OXYGEN THERAPY 2 L/min as needed. simvastatin (ZOCOR) 20 MG tablet Take 1 tablet (20 mg total) by mouth nightly. Objective Triage Vital Signs: Temp: 37.2 C (98.9 F) Pulse: 81 Resp: 22 BP: (!) 154/81 SpO2: 90 % Height: 157.5 cm (5' 2") Weight: 95.7 kg (211 lb) Physical Exam: Gen: Calm, cooperative HEENT: NC/AT, B 2+ PERRL, EOMI, MMM's CV: RRR, S1 & S2 normal, no murmurs, gallops, or rubs, 2+ pulses all extremities Resp: CTAB, no wheezes, crackles, or rhonchi Abd: Coarse, rhonchi and expiratory wheezes throughout, frequent loose cough Ext: No cyanosis Skin: Warm, dry, & intact with no obvious rashes or significant lesions Neuro: A/Ox4, CN's II-XII grossly intact, strength and sensation intact, no fo rosalind neurologic deficits ECG personally reviewed with the following findings noted: normal ECG I have personally reviewed the patient's vital signs, laboratory/pathology/cultu re results (as indicated), imaging studies (results were not discussed with the performing provider), EKG, current inpatient medications, system support analyst notes, p rior admission/outpatient notes and prior to admission medications with pertaine nt findings noted within the assessment/plan. Assessment/Plan Ms. Isiah Benítez is a 67 y.o. female who was admitted on 08/29/2017 with complain t of Shortness of Breath. COPD exacerbation (HCC) CXR negative for acute findings + Inf A. Previous tobacco use Continue daily prednisone 40 mg daily for 5 days Mucinex BID Scheduled duonebs RATE O2 to keep sats greater than 90% Diabetes mellitus, type II (HCC) Blood sugars in one-teens at home Continue home dose of Lantus Will follow accu checks and provide Humalog correction scale. Influenza A Sx for over a week, but will treat with Tamiflu Supportive care Benign essential HTN Normotensive Continue home meds In addition, see my orders for additional details regarding this patients treatm ent plan. Diet: Diet-Regular VTE Prevention: Heparin subcutaneous The patient does not have an advanced directive. Her daughter is her surrogate d ecision maker/DPOA. Code Status: Order needed Disp: Admit the patient as Inpatient to med/surg for treatment as noted above. Lilibeth Redmond RN CORONER TRANSPORT TECHNICIAN [facility]ist Please page through physician paging. . [employer] Associated attestation - Ralf Pugh MD - 08/29/2017 2:53 PM [employer] AS[employer] [facility] Hospitalist - History & Physical Patient Name: Isiah Benítez Account No: [id number] Date of : 1950 Date of Admission: 08/29/2017 8:43 AM Attestation: I personally interviewed and examined Ms. Isiah Benítez. I discusse d the findings with nurse practitioner and reviewed the nurse practitioners note . I agree the nurse practitioners findings with exceptions noted below. Chief Complaint: Shortness of Breath History of Present illness: Ms. Isiah Benítez is a 67 y.o. female who presented with flulike symptoms. She says her symptoms started about a week ago when she w as taking care of her grandson who she thinks may have been sick at the time. Sh e complains of shortness of breath, cough, congestion, subjective fever, malaise . Since she didn't feel like she was getting better she came in to the ED. Review of Systems: A 10-point review of systems was performed and was negative e xcept as noted above. Triage Vital Signs: Temp: 37.2 C (98.9 F) Pulse: 81 Resp: 22 BP: (!) 154/81 SpO2: 90 % Height: 157.5 cm (5' 2") Weight: 95.7 kg (211 lb) Physical Exam: Gen: NAD, resting comfortably in bed CV: RRR, no m/r/g Resp: CTAB, no w/r/r Abd: soft, nontender, nondistended, normoactive bowel sounds Ext: no LE edema Neuro: A&O x4, no focal deficits I have personally reviewed the patient's vital signs, laboratory/pathology/cultu re results (as indicated), imaging studies (results were not discussed with the performing provider), current inpatient medications and system support analyst notes with pertainent findings noted within the assessment/plan. I have personally reviewe d the patient's past medical, surgical, family, or social history and there were no changes reported. The medical, surgical, family, and social history were reviewed as indicated and was not duplicated here. Assessment: Active Problems: COPD exacerbation (HCC) Benign essential HTN Influenza A Diabetes mellitus, type II (HCC) Influenza Plan: 1. Flu A positive, will start tamiflu even though symptoms have been present for ~1 week 2. Treat for COPD exacerbation with duonbes, steroids, oxygen 3. Start mucinex and tessalon perles 4. In addition, see my orders for additional details regarding this patients nicko atment plan. Diet: Diet-Regular VTE Prevention: Heparin subcutaneous Code Status: Full Code Disp: Admit the patient as Inpatient to Med / Surg for treatment as noted above. Ralf Pugh MD [facility]ist Please page through physician paging. . documented in this encounter ED Notes * Kiana Stearns RN - 08/29/2017 2:05 PM [employer] AS[employer] CURER Bed: [facility] [place] Expected date: Expected time: Means of arrival: Comments: ROOM 3 HERE [employer] Katerina Max RN - 08/29/2017 12:26 PM V [employer] AS[employer] CURER Pt resting on cart and eating lunch at this time. Nad, VSS, call light within re ach, advised of POC and states understanding. V [employer]SEM[employer] AND CURER * Katerina Nash RN - 08/29/2017 11:22 AM [employer]ER Pt resting on cart, nad, VSS, call light within reach, advised of POC and states understanding. [employer]ER * Thania Marroquin RN - 08/29/2017 10:05 AM [employer]ER Respiratory therapist notified of breathing treatment. [employer] * Katerina Nash RN - 08/29/2017 9:48 AM V [employer] M[employer] ASSEMBL[employer] CURER Dr. Vásquez notified of positive flu A [employer]ER Katerina Max RN - 08/29/2017 9:31 AM [employer]ER Pt resting on cart, nad, VSS, call light within reach, advised of POC and states understanding. [employer]ER Omar Dnig MD - 08/29/2017 9:00 AM [employer] AND [employer]ER 08/29/2017 [facility] History Chief Complaint Patient presents with Shortness of Breath Patient presents to emergency department complaint of shortness of breath. She states for the last week she has had nasal congestion cough and drainage with fe vers and body aches and shortness of breath. She states she is now having disco mfort in the chest whenever she coughs all over her chest. She states the fever s have improved and the cough is now nonproductive. She states she still has sh ortness of breath and wheezing despite taking multiple duo nebs at home. She st ates she is a history of COPD. She is only on 2 L nasal cannula oxygen if she h as an exacerbation of her COPD but otherwise can do without oxygen normally. In the ER, the patient is on a few liters and only has an oxygen saturation of 92% . Past Medical History: Diagnosis Date Allergic rhinitis [...] ANKLE ARTHRODESIS; Surgeon: Adelaida Olivas MD; Location[place] [facility] [place]; Service: Orthopedics; Later ality: Left; [...] year Review of Systems Constitutional: Positive for chills, fatigue and fever. HENT: Positive for congestion and rhinorrhea. Respiratory: Positive for cough and shortness of breath. Cardiovascular: Positive for chest pain. Gastrointestinal: Negative for abdominal pain. Genitourinary: Negative for difficulty urinating. Neurological: Negative for dizziness, light-headedness and headaches. All other systems reviewed and are negative. Physical Exam BP (!) 148/81 | Pulse 81 | Temp 37.2 C (98.9 F) | Resp 10 | Ht 1.575 m ( 5' 2") | Wt 95.7 kg (211 lb) | SpO2 95% | BMI 38.59 kg/m Physical Exam Constitutional: She is oriented to person, place, and time. She appears well-dev eloped and well-nourished. HENT: Head: Normocephalic and atraumatic. Mouth/Throat: Oropharynx is clear and moist. No oropharyngeal exudate. Eyes: Conjunctivae and EOM are normal. Pupils are equal, round, and reactive to light. Neck: Normal range of motion. Neck supple. Cardiovascular: Normal rate, regular rhythm, normal heart sounds and intact dist al pulses. Pulmonary/Chest: Effort normal. No respiratory distress. She has wheezes. She diggs s no rales. She exhibits no tenderness. Abdominal: Soft. Bowel sounds are normal. She exhibits no distension. There is n o tenderness. Musculoskeletal: Normal range of motion. She exhibits no edema. Lymphadenopathy: She has no cervical adenopathy. Neurological: She is alert and oriented to person, place, and time. She has norm al strength. No cranial nerve deficit or sensory deficit. Skin: Skin is warm and dry. No rash noted. Psychiatric: She has a normal mood and affect. Her behavior is normal. Nursing note and vitals reviewed. ED Course Procedures MDM XR Chest single view frontal Final Result No consolidation. READING SITE: [facility] Results for orders placed or performed during the hospital encounter of 08/29/17 (from the past 24 hour(s)) Comprehensive Metabolic Panel Result Value Ref Range Sodium 140 133 - 147 MEQ/L Potassium 4.0 3.5 - 5.3 MEQ/L Chloride 104 96 - 112 MEQ/L Carbon Dioxide 26 20 - 32 MEQ/L Anion Gap 10 5 - 17 Calcium 9.1 8.4 - 10.5 mg/dL Glucose 176 (H) 70 - 100 mg/dL Protein Total Serum 7.5 6.0 - 8.2 g/dL Albumin 4.2 3.5 - 5.0 g/dL Alkaline Phosphatase 84 42 - 140 IU/L Alanine Aminotransferase 31 13 - 69 IU/L Aspartate Aminotransferase 28 15 - 46 IU/L Bilirubin Total 0.5 0.2 - 1.3 mg/dL Blood Urea Nitrogen 17 7 - 26 mg/dL Creatinine 0.7 0.4 - 1.1 mg/dL GFR Female AA 101 60 - 200 GFR Female Non-AA 84 60 - 200 CBC and Diff (manual diff if necessary) Result Value Ref Range WBC 6.52 4.00 - 11.00 TH/uL RBC 4.21 4.00 - 5.00 MIL/uL Hemoglobin 13.4 12.0 - 15.0 g/dL Hematocrit 40 36 - 45 % MCV 96 80 - 99 fL MCH 32 27 - 34 pg MCHC 33 32 - 36 % RDW 14.2 9.0 - 14.5 % Platelet Count 121 (L) 140 - 400 TH/uL MPV 10.4 9.4 - 12.3 fL % Neutrophils 65 45 - 78 % %Lymphocytes 15 15 - 47 % %Monocytes 13 (H) 0 - 12 % %Eosinophils 6 0 - 7 % %Basophils 0 0 - 2 % # Granulocytes 4.26 1.7 - 6.8 TH/uL # Lymphocytes 1.00 1.0 - 3.3 TH/uL # Monocytes 0.84 0.2 - 0.9 TH/uL # Eosinophils 0.40 0.0 - 0.4 TH/uL # Basophils 0.02 0.0 - 0.1 TH/uL Prothrombin Time/INR - ONLY if patient is on Warfarin Result Value Ref Range Protime 12.8 11.4 - 15.0 sec INR 1.0 0.8 - 1.2 Troponin 0 hr Result Value Ref Range Troponin <0.01 0.00 - 0.03 ng/mL Influenza AB Antigen Result Value Ref Range Influenza A Antigen Positive (A) Negative Influenza B Antigen Negative Negative ED Course Patient was given duo nebs 2 with still persistent wheezing on reevaluation at 1030. She was given Solu-Medrol as well. The patient does not feel like she i s breathing at her baseline or good enough to be able to go home. Patient's car e was discussed the hospitalist for admission for treatment of COPD likely ernestine pérez to a recent influenza. I do not feel she needs Tamiflu she has had symptom s of influenza for over a week. ED Clinical Impression 1. Influenza 2. COPD exacerbation (HCC) Patient ED Dispo ED Disposition Admit Omar Vásquez MD 08/29/17 1038 [employer]ER documented in this encounter Miscellaneous Notes * Care Progression Final DC Note - Thania Mcneal, ADAM - 09/01/2017 3:06 PM V [employer] M[employer] ASSEMBLER AND CURER Final Discharge Note Anticipated discharge destination: Home Self Care Discharge goal and plan is mutually agreed upon by patient. Patient will discharge to: Home self care with her daughter. Transportation: Provided by the patient's daughter. Discharge Time: After 4:00 when the patient's daughter is off work. Thania Mcneal RN Dowel Maker [phone]. [employer] ASSEM[employer]ER AND CURER * Care Progression Initial Assessment - Thania Mcneal RN - 09/01/2017 3:03 PM V [employer] M[employer] ASSEMBLER AND CURER Care Progression Initial Assessment Note Additional information: The patient will discharge home with her daughter. The judith dent is on oxygen at home, 2L as needed with [employer] as the 02 provider. Per judith dent's request gave the patient Financial Assistance paper work. No needs expe cted at discharge. Referral to see patient was placed by Referral Source: Care Progression Referral Name: Care Progression, Referral Reason: Discharge planning, Initial As sessment Initial assessment completed and Information obtained from: : Patient Introduced self and purpose of meeting with the patient and is agreeable to inte rview at this time. In talking with patient, General Attitude: Appropriate Memory : Intact, Mood: Appropriate, Speech: Normal, Orientation Level: Intact Patient Timber Inspector Name: Lauryn Garcia, Patient Timber Inspector Juan ne: [phone] Patient's Living Arrangement: House Patients support system has been Support System: Children Patient has verbalized the following concerns at discharge: None Family Concerns: N/A Pt has Payor: MEDICARE REPLACEMENT PLAN / Plan: [facility] MEDICARE ADVANTAGE / Produ ct Type: *No Product type* / Legal Information: Advance Directives: Power of Environmental Solutions Engineer for health care, Legal Documentation: Requested Patients functioning status prior to admission to the hospital was:Independen t Functional Screening: Completely Independent Patient currently uses at home: Assistive Devices: Walker, Oxygen, Cane, Crutche s, Wheelchair, Nebulizer (Grab bars and a built in shower bench. The patient has had foot surgery in the past but isn't currently using all of her DME related t o that.) Respiratory items:: CPap Patient states their Income Source: Not employed. Not employed: Disabled, Retir ed, Government Assistance: Medicare, SS/SSI Income/Expense Information: Income exceeds expenses Resources Available: Rx benefits Verified that patients primary care physician is Ebony Sharp MD and abhilash ves their medications from [facility] [address] [place], [place] - [address] [facility] [address] [address] [facility] [id number] Discharge Planning Interventions General Discharge Note Patients Anticipated discharge destination: Home Self Care Patient's Living Arrangement: House Support System: Children. Is the prior level of care appropriate and safe?: Yes Patient will need Home Care Services: No. anticipated to be needed for patients discharge. Discharge Services requested include: None at this time. Durable Medical Equipment has been identified for patients discharge. None Discharge Planning Participants: Patient. Pt/Family Agreement w/ discharge plan : Yes Thania Mcneal RN Dowel Maker [phone]. [employer]SEM[employer]ER * Plan of Care - Vivian Friend RN - 09/01/2017 12:23 PM V [employer] M[employer] ASSEM[employer]ER AND CURER Problem: Knowledge Deficit Goal: Patient/family/caregiver demonstrates understanding of disease process, tr eatment plan, medications, and discharge instructions Outcome: Progressing Goal: Patient/Family/Caregiver sets realistic goals Outcome: Progressing Problem: Pain Goal: Patient's pain/discomfort is manageable Outcome: Progressing Problem: Skin Integrity Goal: Skin integrity is maintained or improved Outcome: Progressing Problem: Safety Goal: Patient will be injury free during hospitalization Outcome: Progressing Problem: Nutrition Goal: Patient's nutritional intake is adequate Outcome: Progressing Problem: Risk for Falls Goal: Patient will not fall during their Inpatient stay Outcome: Progressing [employer]ER * Plan of Care - Ladan Allan RN - 08/31/2017 10:18 PM V [employer] M[employer] ASSEM[employer]ER AND CURER Problem: Knowledge Deficit Goal: Patient/family/caregiver demonstrates understanding of disease process, tr eatment plan, medications, and discharge instructions Outcome: Progressing Goal: Patient/Family/Caregiver sets realistic goals Outcome: Progressing Problem: Pain Goal: Patient's pain/discomfort is manageable Outcome: Progressing Problem: Skin Integrity Goal: Skin integrity is maintained or improved Outcome: Progressing Problem: Safety Goal: Patient will be injury free during hospitalization Outcome: Progressing Problem: Nutrition Goal: Patient's nutritional intake is adequate Outcome: Progressing Problem: Risk for Falls Goal: Patient will not fall during their Inpatient stay Outcome: Progressing V [employer] MOLD ASSEMBLER AND CURER * Plan of Zena Kern RN - 08/31/2017 10:44 AM V [employer] M[employer] ASSEM[employer]ER AND CURER Problem: Knowledge Deficit Goal: Patient/family/caregiver demonstrates understanding of disease process, tr eatment plan, medications, and discharge instructions Outcome: Progressing Goal: Patient/Family/Caregiver sets realistic goals Outcome: Progressing Problem: Pain Goal: Patient's pain/discomfort is manageable Outcome: Progressing Problem: Skin Integrity Goal: Skin integrity is maintained or improved Outcome: Progressing Problem: Safety Goal: Patient will be injury free during hospitalization Outcome: Progressing Problem: Nutrition Goal: Patient's nutritional intake is adequate Outcome: Progressing Pt tolerating diet without complications. POC glucose monitoring Problem: Risk for Falls Goal: Patient will not fall during their Inpatient stay Outcome: Progressing V [employer] MOLD ASSEMBLER AND CURER * Plan of Chayo - Ladan Allan RN - 08/30/2017 9:55 PM V [employer] M[employer] ASSEMBLER AND CURER Problem: Knowledge Deficit Goal: Patient/family/caregiver demonstrates understanding of disease process, tr eatment plan, medications, and discharge instructions Outcome: Progressing Goal: Patient/Family/Caregiver sets realistic goals Outcome: Progressing Problem: Pain Goal: Patient's pain/discomfort is manageable Outcome: Progressing Problem: Skin Integrity Goal: Skin integrity is maintained or improved Outcome: Progressing Problem: Safety Goal: Patient will be injury free during hospitalization Outcome: Progressing Problem: Nutrition Goal: Patient's nutritional intake is adequate Outcome: Progressing Problem: Risk for Falls Goal: Patient will not fall during their Inpatient stay Outcome: Progressing Patient uses call light approprietly. Call light within reach V [employer]T MOLD ASSEMBLER AND CURER * Plan of Tiny Gallo RN - 08/30/2017 8:57 AM V BELT MOLD ASSEMBLER AND CURER Problem: Knowledge Deficit Goal: Patient/Family/Caregiver sets realistic goals Outcome: Progressing Problem: Pain Goal: Patient's pain/discomfort is manageable Outcome: Progressing Problem: Skin Integrity Goal: Skin integrity is maintained or improved Outcome: Progressing Problem: Safety Goal: Patient will be injury free during hospitalization Outcome: Progressing Problem: Nutrition Goal: Patient's nutritional intake is adequate Outcome: Progressing Problem: Risk for Falls Goal: Patient will not fall during their Inpatient stay Outcome: Progressing V [employer]T MOLD ASSEMBLER AND CURER * Plan of Care - Donna Joy RN - 08/29/2017 10:53 PM V [employer]T MOLD ASSEMBLER AND CURER Problem: Knowledge Deficit Goal: Patient/family/caregiver demonstrates understanding of disease process, tr eatment plan, medications, and discharge instructions Outcome: Progressing Goal: Patient/Family/Caregiver sets realistic goals Outcome: Progressing Problem: Pain Goal: Patient's pain/discomfort is manageable Outcome: Progressing Problem: Skin Integrity Goal: Skin integrity is maintained or improved Outcome: Progressing Problem: Safety Goal: Patient will be injury free during hospitalization Outcome: Progressing Problem: Nutrition Goal: Patient's nutritional intake is adequate Outcome: Progressing Problem: Risk for Falls Goal: Patient will not fall during their Inpatient stay Outcome: Progressing V [employer]T MOLD ASSEMBLER AND CURER * Assessment & Plan Note - Maikel Gasca MD - 08/29/2017 2:04 PM V [employer]T MOLD ASSEMBLER AND CURER Associated Problem(s): Diabetes mellitus, type II (HCC) Elevated Increase lantus and ssi. V [employer]T MOLD ASSEMBLER AND CURER * Assessment & Plan Note - Maikel Gasca MD - 08/29/2017 2:03 PM V BELT MOLD ASSEMBLER AND CURER Associated Problem(s): Influenza A Continue tamfilu V BELT MOLD ASSEMBLER AND CURER * Assessment & Plan Note - Lilibeth Redmond RN CORONER TRANSPORT TECHNICIAN - 08/29/2017 2:03 PM V [employer] M[employer] ASSEMBLER AND CURER Associated Problem(s): Essential hypertension Normotensive Continue home meds V [employer] MOLD ASSEMBLER AND CURER * Assessment & Plan Note - Maikel Gasca MD - 08/29/2017 2:01 PM V [employer] M[employer] ASSEMBLER AND CURER Associated Problem(s): COPD exacerbation (HCC) Change steroids to po duonebs tamiflu Supportive care. V [employer]T MOLD ASSEMBLER AND CURER documented in this encounter Plan of Treatment Care Team Description Date [place] [address] [place] [id number] [phone] 02/29/2020 Office Visit Urology documented as of this encounter Procedures Comments Procedure Name Priority Date/Time Associated Diag nosis GLUCOSE POC Routine 09/01/2017 11:39 AM V [employer] M[employer] AS[employer]ER AND CURER GLUCOSE POC Routine 09/01/2017 8:17 AM V [employer] AND [employer]ER GLUCOSE POC Routine 08/31/2017 8:49 PM V [employer] M[employer] ASSEM[employer]ER AND CURER GLUCOSE POC Routine 08/31/2017 4:01 PM V [employer] M[employer] ASSEMBLER AND CURER GLUCOSE POC Routine 08/31/2017 11:40 AM V [employer] M[employer] ASSEMBLER AND CURER GLUCOSE POC Routine 08/31/2017 7:32 AM V [employer] M[employer] ASSEM[employer]ER AND [employer]ER GLUCOSE POC Routine 08/31/2017 3:09 AM V [employer] M[employer] ASSEM[employer]ER AND CURER GLUCOSE POC Routine 08/31/2017 12:13 AM V [employer] M[employer] ASSEM[employer]ER AND CURER GLUCOSE POC Routine 08/30/2017 8:59 PM V [employer] M[employer] ASSEMBLER AND CURER GLUCOSE POC Routine 08/30/2017 5:15 PM V [employer] M[employer] ASSEM[employer]ER AND [employer]ER GLUCOSE POC Routine 08/30/2017 11:30 AM V [employer] M[employer] ASSEMBLER AND CURER CBC AND DIFF (MANUAL DIFF Routine 08/30/2017 IF NECESSARY) 8:12 AM V [employer] MOLD ASSEMBLER AND CURER BASIC METABOLIC PANEL Routine 08/30/2017 8:12 AM V [employer] M[employer] ASSEMBLER AND CURER GLUCOSE POC Routine 08/30/2017 7:30 AM V [employer] M[employer] ASSEMBLER AND CURER GLUCOSE POC Routine 08/30/2017 3:38 AM V BELT MOLD ASSEMBLER AND CURER GLUCOSE POC Routine 08/30/2017 12:26 AM V [employer]T MOLD ASSEMBLER AND CURER GLUCOSE POC Routine 08/29/2017 9:19 PM V [employer] MOLD ASSEMBLER AND CURER GLUCOSE POC Routine 08/29/2017 5:40 PM V [employer] MOLD ASSEMBLER AND CURER INFLUENZA AB ANTIGEN STAT 08/29/2017 9:26 AM V [employer] M[employer] ASSEMBLER AND CURER XR CHEST SINGLE VIEW STAT 08/29/2017 FRONTAL 9:00 AM V [employer] M[employer] AS[employer] AND [employer]ER TROPONIN STAT 08/29/2017 9:00 AM V [employer] M[employer] AS[employer]ER AND CURER PROTHROMBIN TIME/INR STAT 08/29/2017 9:00 AM V [employer] M[employer] ASSEM[employer]ER AND CURER COMPREHENSIVE METABOLIC STAT 08/29/2017 PANEL 9:00 AM V [employer] M[employer] ASSEMBLER AND CURER CBC AND DIFF (MANUAL DIFF STAT 08/29/2017 IF NECESSARY) 9:00 AM V [employer] MOLD ASSEMBLER AND CURER PULSE OXIMETRY, STAT 08/29/2017 CONTINUOUS 8:48 AM V [employer] M[employer] ASSEMBLER AND CURER ECG STAT 08/29/2017 7:48 AM V [employer]T MOLD ASSEMBLER AND CURER documented in this encounter Results * GLUCOSE POC (09/01/2017 11:39 AM V BELT MOLD ASSEMBLER AND CURER) Only the most recent of 16 results within the time period is included. [facility] Glucose POC 183 (H) 70 - 100 mg/dL [facility] Specimen Performing Organization Address City/State/Zipcode Ph one Number [facility] [address] [place] [place] [address] [facility] [address] [place] [address], [facility] * Basic Metabolic Panel (08/30/2017 8:12 AM V BELT MOLD ASSEMBLER AND CURER) [facility] Sodium 140 133 - 147 MEQ/L [facility] Potassium 3.9 3.5 - 5.3 MEQ/L [facility] Chloride 106 96 - 112 MEQ/L [facility] Carbon Dioxide 25 20 - 32 MEQ/L [facility] Anion Gap 9 5 - 17 [facility] Calcium 8.7 8.4 - 10.5 mg/dL [facility] Glucose 157 (H) 70 - 100 mg/dL [facility] Blood Urea 16 7 - 26 mg/dL [facility] Creatinine 0.7 0.4 - 1.1 mg/dL [facility] eGFR Female AA 101 60 - 200 [facility] Comment: [facility] Chronic Kidney Disease less [facility] than 60 mL/min/1.73 sq.m Kidney failure less than 15 mL/min/1.73 sq.m eGFR Female 84 60 - 200 [facility] Non-AA Comment: [facility] Chronic Kidney Disease less [facility] than 60 mL/min/1.73 sq.m Kidney failure less than 15 mL/min/1.73 sq.m Specimen Blood Narrative Performed At This order is a replacement of the rejected order wit h accession number [facility] [id number]. [facility] Performing Organization Address City/State/Zipcode Ph one Number [facility] [address] [facility] [place] [address] [facility] [address] [facility] [place] [address], [facility] * CBC and Diff (manual diff if necessary) (08/30/2017 8:12 AM [facility] [employer]) Only the most recent of 2 results within the time period is included. WBC 8.42 4.00 - 11.00 TH/uL [facility] RBC 3.73 (L) 4.00 - 5.00 MIL/uL [facility] Hemoglobin 12.0 12.0 - 15.0 g/dL [facility] Hematocrit 36 36 - 45 % [facility] MCV 97 80 - 99 fL [facility] MCH 32 27 - 34 pg [facility] MCHC 33 32 - 36 % [facility] RDW 14.4 9.0 - 14.5 % [facility] Platelet Count 132 (L) 140 - 400 TH/uL [facility] MPV 9.9 9.4 - 12.3 fL [facility] % Neutrophils 68 45 - 78 % [facility] %Lymphocytes 20 15 - 47 % [facility] %Monocytes 12 0 - 12 % [facility] # Granulocytes 5.76 1.7 - 6.8 TH/uL [facility] # Lymphocytes 1.68 1.0 - 3.3 TH/uL [facility] # Monocytes 0.98 (H) 0.2 - 0.9 TH/uL [facility] # Eosinophils 0.00 0.0 - 0.4 TH/uL [facility] # Basophils 0.00 0.0 - 0.1 TH/uL [facility] Specimen Blood Narrative Performed At This order is a replacement of the rejected order wit h accession number [facility] [id number]. [facility] Performing Organization Address City/State/[facility] Ph one Number [facility] [address] [place] [facility] [place] [address] [facility] [address] [place] [place] [address], [facility] * Influenza AB Antigen (08/29/2017 9:26 AM V [employer]) Influenza A Positive (A)Comment: If this Negative [facility], droplet [facility] precautions are required with [facility] this organism Influenza B Negative Negative [facility] Comment: [facility] A negative rapid influenza [facility] antigen result does not exclude influenza infection. If this patient is being hospitalized, influenza PCR should be ordered. Specimen Nasopharynx, Performing Organization Address City/State/[facility] Ph one Number [facility] [address] [place] [address] [facility] [address] [place] [address], [facility] * XR Chest single view frontal (08/29/2017 9:00 AM V [employer]) Specimen Impressions Performed At No [facility]. LEVI READING SITE: [facility] Narrative Performed At Patient: ISIAH BENÍTEZ Sex#: F # [id number] Jose#: [id number] Location: [facility] SED-03 Procedure Requested: [id number] XR CHEST SINGLE VIEW FRONTAL Reason for Exam: Chest Pain Exam Ordered: 08/29/2017 084 8 Exam Date/Time: 08/29/2017 0900 Begin exam date/time: 08/29/2017 0852 XR CHEST SINGLE VIEW FRONTAL INDICATION: Chest Pain COMPARISON STUDY: May 10, 2017. FINDINGS: Lungs: The lung volume is normal. Left basal subsegmental atelectasis or scarring. No consolidation. Pleura: No pleural effusion or pneumoth orax. Heart and Mediastinum: The cardiomedias tinal silhouette and great vessels are stable. Procedure Note Interface, Rad Results In - 08/29/2017 9:15 AM V [employer] Patient: ISIAH BENÍTEZ Sex#: F # [id number] Jose#: [id number] Location: [facility] SED-[facility] Procedure Requested: [id number] XR CHEST SINGLE VIEW FRONTAL Reason for Exam: Chest Pain Exam Ordered: 08/29/2017 0848 Exam Date/Time: 08/29/2017 0900 Begin exam date/time: 08/29/2017 0852 XR CHEST SINGLE VIEW FRONTAL INDICATION: Chest Pain COMPARISON STUDY: May 10, 2017. FINDINGS: Lungs: The lung volume is normal. Left basal subsegmental atelectasis or scarring. No consolidation. Pleura: No pleural effusion or pneumothorax. Heart and Mediastinum: The cardiomediastinal silhouette and great vessels are stable. IMPRESSION No consolidation. READING SITE: [facility] Performing Organization Address City/State/Zipcode Ph one Number LEVI * Troponin 0 hr (08/29/2017 9:00 AM V [employer]) [facility] Troponin <0.01 0.00 - 0.03 ng/mL [facility] Comment: [facility] Troponin Value [facility] Interpretation 0.00 - 0.03 Healthy 0.04 - 0.12 Increased Cardiac Risk >0.12 Myocardial Infarction Troponin may not become elevated until 6 to 8 hours after onset of symptoms. Specimen Blood Performing Organization Address City/State/Zipcode Ph one Number [facility] [address] [facility] [place] [address] [facility] [address] [place] [address], [facility] * Prothrombin Time/INR - ONLY if patient is on Warfarin (08/29/2017 9:00 AM V [employer]) Pathologist [facility] Protime 12.8 11.4 - 15.0 sec [facility] INR 1.0 0.8 - 1.2 [facility] Specimen Blood Performing Organization Address City/State/[facility] Ph one Number [facility] [address] [place] [address] [facility] [address] [place] [address], [facility] * Comprehensive Metabolic Panel (08/29/2017 9:00 AM V [employer]) [facility] Sodium 140 133 - 147 MEQ/L [facility] Potassium 4.0 3.5 - 5.3 MEQ/L [facility] Chloride 104 96 - 112 MEQ/L [facility] Carbon Dioxide 26 20 - 32 MEQ/L [facility] Anion Gap 10 5 - 17 [facility] Calcium 9.1 8.4 - 10.5 mg/dL [facility] Glucose 176 (H) 70 - 100 mg/dL [facility] Protein Total 7.5 6.0 - 8.2 g/dL [facility] Serum [facility] Albumin 4.2 3.5 - 5.0 g/dL [facility] Alkaline 84 42 - 140 IU/L [facility] Phosphatase [facility] Alanine 31 13 - 69 IU/L [facility] Aminotransferas [facility] e [facility] Aspartate 28 15 - 46 IU/L [facility] Aminotransferas [facility] e [facility] Bilirubin Total 0.5 0.2 - 1.3 mg/dL [facility] Blood Urea 17 7 - 26 mg/dL [facility] Nitrogen [facility] Creatinine 0.7 0.4 - 1.1 mg/dL [facility] eGFR Female AA 101 60 - 200 [facility] Comment: AL[facility] MARBINS Chronic Kidney Disease less [facility] than 60 mL/min/1.73 sq.m Kidney failure less than 15 mL/min/1.73 sq.m eGFR Female 84 60 - 200 [facility] Non-AA Comment: ALBERT ZAZUETAS Chronic Kidney Disease less [facility] than 60 mL/min/1.73 sq.m Kidney failure less than 15 mL/min/1.73 sq.m Specimen Blood Performing Organization Address City/State/Zipcode Ph one Number ME[facility] AGUSTINS [address] [facility] [place], [place] [id number] [facility] [address] 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 : 1950 Requested By: JASON GUILLORY Order Number: [id number] Reading MD: Measurements Intervals [place] Rate: 73 P: 58 CA: 156 QRS: 63 QRSD: 100 T: 61 QT: 396 QTc: 437 Interpretive Statements SINUS RHYTHM Procedure Note Interface, External Ris In - 08/29/2017 7:49 AM V [employer]ER [facility] ED Test Date: 2017-08-29 Pat Name: ISIAH BENÍTEZ Department: ERS Room: 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: Female 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: [id number] : 1950 Requested By: JASON GUILLORY Order Number: [id number] Reading MD: Measurements Intervals [place] Rate: 73 P: 58 CA: 156 QRS: 63 QRSD: 100 T: 61 QT: 396 QTc: 437 Interpretive Statements SINUS RHYTHM Performing Organization Address City/State/Zipcode Ph one Number [facility]ER documented in this encounter Visit Diagnoses Diagnosis Influenza Influenza with other respiratory manife stations COPD exacerbation (HCC) Obstructive chronic bronchitis with exa cerbation Type 2 diabetes mellitus without compli cation, 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) Influenza A Influenza with other respiratory manife stations Essential hypertension Unspecified essential hypertension Diabetes mellitus, type II (HCC) Type II or unspecified type diabetes me llitus without mention of complication, not stated as uncontrolled documented in this encounter Administered Medications Action Date Dose Rate Site Medication Order MAR Action acetaminophen (TYLENOL) suppository 325-650 mg 325-650 mg, Rectal, Every 6 hours PRN, mild pain (pain score 1-3), fever, Starting 08/29/17 at 1854, Administer if patient unable to tolerate oral medications., acetaminophen (TYLENOL) tablet 325-650 mg 325-650 mg, Oral, Every 6 hours PRN, mild pain (pain score 1-3), fever, Starting 08/29/17 at 1854, Do not exceed 4 GM/DAY of acetaminophen. If 6 5 or older do not exceed 3 GM/DAY. If chronic alcoholic do not exceed 2 GM/DAY., 08/31/2017 9:34 PM V [employer]ER 25 mg amitriptyline (ELAVIL) tablet 25 mg Given 25 mg, Oral, Nightly, First dose on 08/29/17 at 2100 25 mg Given 08/30/2017 8:12 PM V [employer]ER 25 mg Given 08/29/2017 8:08 PM [employer] 09/01/2017 8:50 AM V [employer]ER 5 mg amLODIPine (NORVASC) tablet 5 mg Given 5 mg, Oral, Daily, First dose on 08/29/17 at 1915 5 mg Given 08/31/2017 9:13 AM V [employer]ER 5 mg Given 08/30/2017 8:30 AM V [employer]ER 08/31/2017 3:58 AM V [employer]ER 100 mg benzonatate (TESSALON) capsule 100 mg Given 100 mg, Oral, 3 times daily PRN, cough, Starting 08/29/17 at 1331, DO NOT CRUSH OR CHEW., 100 mg Given 08/30/2017 8:13 PM V [employer]ER 100 mg Given 08/29/2017 8:08 PM V [employer]ER 09/01/2017 8:50 AM V [employer]ER 200 mg celecoxib (CeleBREX) capsule 200 mg Given 200 mg, Oral, Daily, First dose on 08/29/17 at 1207 200 mg Given 08/31/2017 9:14 AM V [employer]ER 200 mg Given 08/30/2017 8:30 AM V [employer] 09/01/2017 8:50 AM V [employer] 20 mg citalopram (CeleXA) tablet 20 mg Given 20 mg, Oral, Daily, First dose on 08/29/17 at 1915 20 mg Given 08/31/2017 9:14 AM V [employer]ER 20 mg Given 08/30/2017 8:30 AM [employer] dextrose 10% (D10W) bolus 125-250 mL 125-250 mL, Intravenous, at 500-1,000 mL/hr, As needed, low blood sugar, Starting 08/29/17 at 1419, Give if patient NPO and IV access already available. If no IV access give Glucagon SQ or IM in arm and turn patient on side. Recheck BG in 15 minutes. Repeat until glucose greater than 80., dextrose 50% (D50W) 50 % injection 25-5 0 mL 25-50 mL, Intravenous, As needed, low blood sugar, Starting 08/29/17 at 1419, Give if patient NPO and IV access already available. If no IV access giv e Glucagon SQ or IM in arm and turn patient on side. Recheck BG in 15 minutes. Repeat until glucose greater than 80., dextrose 50% (D50W) syringe 25-50 mL 25-50 mL, Intravenous, As needed, low blood sugar, Starting 08/29/17 at 1419, Give if patient NPO and IV access already available. If no IV access giv e Glucagon SQ or IM in arm and turn patient on side. Recheck BG in 15 minutes. Repeat until glucose greater than 80., 08/29/2017 10:46 AM V [employer] 100 mg doxycycline hyclate (VIBRA-TABS) tablet Given 100 mg 100 mg, Oral, Once, Indications: COPD, 08/29/17 at 1039, For 1 dose 09/01/2017 7:57 AM V [employer] 1 puff fluticasone-vilanterol (BREO ELLIPTA) Given 200-25 mcg/actuation inhaler 1 puff 1 puff, Inhalation, Daily, First dose o n 08/29/17 at 1915, Rinse mouth with water after use if patient not on vent. , 1 puff Given 08/31/2017 8:24 AM V [employer] 1 puff Given 08/30/2017 7:58 AM [employer] 09/01/2017 8:50 AM V [employer]ER 300 mg gabapentin (NEURONTIN) capsule 300 mg Given 300 mg, Oral, 3 times daily, First dose on 08/29/17 at 2100 300 mg Given 08/31/2017 9:33 PM V [employer]ER 300 mg Given 08/31/2017 3:56 PM [employer] glucagon (GLUCAGEN) injection 1 mg 1 mg, Intramuscular, As needed, low blood sugar, low blood sugar, Starting 08/29/17 at 1419, If no IV access. Ma ugo give IM or SQ in arm and turn patient o n side., glucagon (GLUCAGEN) injection 1 mg 1 mg, Subcutaneous, As needed, low bloo d sugar, low blood sugar, Starting 08/29/17 at 1419, If no IV access. May give IM or SQ in arm and turn patient o n side., 09/01/2017 8:50 AM V [employer] 1,200 mg guaiFENesin (MUCINEX) 12 hr tablet 1,200 Given mg 1,200 mg, Oral, 2 times daily, First dose on 08/29/17 at 1333, DO NOT GERI H OR CHEW., 1,200 mg Given 08/31/2017 9:34 PM V [employer]ER 1,200 mg Given 08/31/2017 9:13 AM V [employer] 09/01/2017 5:45 AM V [employer] 5,000 Units Abdomina l Tissue heparin (porcine) 5,000 unit/mL Given injection 5,000 Units 5,000 Units, Subcutaneous, Every 8 hours, First dose on Wed08/29/17 at 2200 5,000 Units Abdominal Tissue Given 08/31/2017 9:34 PM V [employer]ER 5,000 Units Abdominal Tissue Given 08/31/2017 3:56 PM V [employer]ER 08/29/2017 8:10 PM V [employer]ER 5,000 Units Abdomina l Tissue heparin (porcine) 5,000 unit/mL Given injection 5,000 Units 5,000 Units, Subcutaneous, Every 8 hours, First dose on Wed08/29/17 at 1455 5,000 Units Abdominal Tissue Given 08/29/2017 2:58 PM V [employer]ER 08/30/2017 9:34 PM V [employer]ER 10 Units Abdomina l Tissue insulin glargine (LANTUS) injection 10 Given Units 10 Units, Subcutaneous, Nightly, First dose on Wed08/29/17 at 2100 10 Units Abdominal Tissue Given 08/29/2017 10:10 PM V [employer]ER 08/31/2017 9:34 PM V [employer]ER 15 Units Abdomina l Tissue insulin glargine (LANTUS) injection 15 Given Units 15 Units, Subcutaneous, Nightly, First dose (after last modification) on Wed08/31/17 at 2100 08/31/2017 12:08 PM V [employer]ER 4 Units Abdomina l Tissue insulin lispro (HumaLOG) injection 1-6 Given Units 1-6 Units, Subcutaneous, 4 times daily before meals and nightly, First dose on Wed08/29/17 at 1422, LEVEL 2 Give in addition to scheduled [...] check - dose per table, 3 Units Abdominal Tissue Given 08/31/2017 9:14 AM V [employer] 4 Units Abdominal Tissue Given 08/30/2017 9:34 PM V [employer]ER 09/01/2017 1:20 PM V [employer]ER 2 Units Left Arm insulin lispro (HumaLOG) injection 2-12 Given Units 2-12 Units, Subcutaneous, 4 times daily before meals and nightly, First dose on Wed08/31/17 at 1230, LEVEL 4 Give in addition [...] blood glucose check - dose per table, 2 Units Left Arm Given 09/01/2017 8:49 AM V [employer]ER 6 Units Abdominal Tissue Given 08/31/2017 9:34 PM V [employer]ER 08/29/2017 9:09 AM V [employer]ER 3 mL ipratropium-albuterol (DUO-NEB) 0.5-3 Given mg/3 mL nebulizer solution 3 mL 3 mL, Inhalation, Once, Wishon 08/29/17 at 0902, For 1 dose 08/29/2017 10:15 AM V [employer]ER 3 mL ipratropium-albuterol (DUO-NEB) 0.5-3 Given mg/3 mL nebulizer solution 3 mL 3 mL, Inhalation, Once, Wishon 08/29/17 at 1006, For 1 dose 09/01/2017 11:29 AM V [employer]ER 3 mL ipratropium-albuterol (DUO-NEB) 0.5-3 Given mg/3 mL nebulizer solution 3 mL 3 mL, Inhalation, 4 times daily, First dose on Wed08/29/17 at 1333 3 mL Given 09/01/2017 7:57 AM V [employer]ER 3 mL Given 08/31/2017 8:53 PM V [employer] AND [employer]ER 08/31/2017 4:32 AM V [employer] M[employer]ER 3 mL ipratropium-albuterol (DUO-NEB) 0.5-3 Given mg/3 mL nebulizer solution 3 mL 3 mL, Inhalation, As needed, wheezing, Starting Wed08/31/17 at 0429 08/30/2017 3:10 PM V [employer]ER 15 mg ketorolac (TORADOL) injection 15 mg Given 15 mg, Intravenous, Every 6 hours PRN, moderate pain (pain score 4-6), severe pain (pain score 7-10), Starting Wishon 08/29/17 at 1331, For 5 doses 15 mg Given 08/30/2017 9:00 AM V [employer]ER 15 mg Given 08/30/2017 2:55 AM V [employer]ER 08/31/2017 9:33 PM V [employer]ER 800 mg metaxalone (SKELAXIN) tablet 800 mg Given 800 mg, Oral, Nightly, First dose on 08/29/17 at 2100 800 mg Given 08/30/2017 8:13 PM V [employer]ER 800 mg Given 08/29/2017 8:08 PM V [employer] AND [employer]ER 08/29/2017 9:22 AM V [employer]ER 125 mg methylPREDNISolone sod suc(PF) Given (Solu-MEDROL) injection 125 mg 125 mg, Intravenous, Once, Wishon 08/29/17 a t 0902, For 1 dose 08/31/2017 9:13 AM V [employer]ER 40 mg methylPREDNISolone sod suc(PF) Given (Solu-MEDROL) injection 40 mg 40 mg, Intravenous, Every 8 hours scheduled, First dose (after last modification) on Wed08/30/17 at 1700 40 mg Given 08/31/2017 1:06 AM V [employer]ER 40 mg Given 08/30/2017 3:10 PM V [employer] AND [employer]ER 08/31/2017 6:38 PM V BEL[employer] M[employer]ER 40 mg methylPREDNISolone sod suc(PF) Given (Solu-MEDROL) injection 40 mg 40 mg, Intravenous, Every 8 hours scheduled, First dose (after last modification) on Wed08/31/17 at 1700, Fo r 1 dose 09/01/2017 8:49 AM V [employer]ER 100 mg metoprolol tartrate (LOPRESSOR) tablet Given 100 mg 100 mg, Oral, 2 times daily, First dose on Wed08/29/17 at 2100 100 mg Given 08/31/2017 9:33 PM V [employer]ER 100 mg Given 08/31/2017 9:13 AM V [employer]ER 08/29/2017 9:23 AM V [employer]ER 4 mg morphine 4 mg/mL injection 4 mg Given 4 mg, Intravenous, Once, Wishon 08/29/17 at 0902, For 1 dose 09/01/2017 8:50 AM V [employer]ER 75 mg oseltamivir (TAMIFLU) capsule 75 mg Given 75 mg, Oral, 2 times daily, Indications : INFLUENZA , First dose on Wed08/29/17 at 1355, For 5 days 75 mg Given 08/31/2017 9:33 PM V [employer]ER 75 mg Given 08/31/2017 9:14 AM V [employer]ER 08/31/2017 9:33 PM V [employer]ER 40 mg pravastatin (PRAVACHOL) tablet 40 mg Given 40 mg, Oral, Nightly, First dose on Wed08/29/17 at 2100 40 mg Given 08/30/2017 8:13 PM V [employer] M[employer] AS[employer]ER 40 mg Given 08/29/2017 8:08 PM V [employer] AND [employer]ER 08/30/2017 8:30 AM V [employer]ER 40 mg predniSONE (DELTASONE) tablet 40 mg Given 40 mg, Oral, Daily, First dose on Wed08/30/17 at 0900, For 5 days, Give with food to reduce GI upset, 09/01/2017 8:50 AM V [employer]ER 40 mg predniSONE (DELTASONE) tablet 40 mg Given 40 mg, Oral, Daily, First dose on Wed09/01/17 at 0900, Give with food to reduce GI upset, 09/01/2017 8:49 AM V [employer]ER 5 mL promethazine-codeine (PHENERGAN with Given CODEINE) 6.25-10 mg/5 mL syrup 5 mL 5 mL, Oral, Every 4 hours PRN, cough, Starting Wed08/30/17 at 1315 5 mL Given 08/31/2017 9:34 PM V [employer]ER 5 mL Given 08/31/2017 3:56 PM V [employer]ER 08/31/2017 5:17 AM V [employer]ER 50 mL/hr 50 mL/hr sodium chloride 0.9% infusion New Bag 50 mL/hr, Intravenous, Continuous, Starting Wishon 08/29/17 at 1125, For 48 hours 50 mL/hr 50 mL/hr New Bag 08/30/2017 9:00 AM V [employer] M[employer]ER 50 mL/hr 50 mL/hr New Bag 08/29/2017 2:12 PM V [employer] AND [employer]ER 09/01/2017 10:50 AM V [employer]ER 50 mg traMADol (ULTRAM) tablet 50 mg Given 50 mg, Oral, Every 6 hours PRN, mild pain (pain score 1-3), moderate pain (pain score 4-6), Starting Wed08/30/17 a t 2150 50 mg Given 08/31/2017 9:33 PM V [employer]ER 50 mg Given 08/31/2017 12:11 PM V [employer] documented in this encounter Additional Health Concerns Resolved Time Infection Noted Time 04/19/2018 12:13 PM CDT Influenza 08/30/2017 10:13 AM V [employer] documented as of this encounter
--- OUTSIDE RECORDS SUMMARY | 2019-11-28 22:25 | XMS REPORT | Encounter Summary ---
Author Author [facility] Organization [facility] Address Unknown Phone Unavailable Care Team Providers Care Leadite Heater Name Role Phone Ebony Sharp MD PCP Reason for Visit * Reason Comments Dental Pain broke tooth wednesday night wh ile in ER SLE, being treated for flu A, doesn't have a dentist Encounter Details Care Team Description Date Type Department Francoise Baker NP [address] [place] [address] Dental infection (Primary Dx) 09/02/2017 Office Visit [facility] (walk-in clinic) [address] [facility] [address] [place] [address] Social History Date Tobacco Use [...] history available. documented as of this encounter Patient Instructions * Patient Instructions* Francoise Baker NP - 09/02/2017 9:01 AM COMPENSATION ASSOCIATE Dental Abscess An abscess is a pocket of pus at the tip of a tooth root in your jaw bone. It is caused by an infection at the root of the tooth. It can cause pain and swelling of the gum, cheek, or jaw.Pain may spread from the tooth to your ear or the a irving of your jaw on the same side. If the abscess isnt treated, it spreads to the gum near the tooth. This causes more swelling and pain. More serious infecti ons cause your face to swell. A dental abscess usually starts with a crack or cavity in the tooth. The pain is often made worse by drinking hot or cold fluids, or biting on hard foods. Home care Follow these guidelines when caring for yourself at home: Avoid hot and cold foods and drinks. Your tooth may be sensitive to changes i n temperature. Dont chew on the side of the infected tooth. If your tooth is chipped or cracked, or if there is a large open cavity, put oil of cloves directly on the tooth to relieve pain. You can buy oil of cloves a t [facility]. Some pharmacies carry an flwk-ltd-mjedinh "toothache kit." This co ntains a paste that you can put on the exposed tooth to make it less sensitive. Put a cold pack on your jaw over the sore area to help reduce pain. You may use acetaminophen or ibuprofen to ease pain, unless another medicine was prescribed. Note: If you have chronic liver or kidney disease, talk with you r health care provider before using these medicines. Also talk with your provide r if youve had a stomach ulcer or GI bleeding. An antibiotic will be prescribed. Take it until finished, even if you are fee ling better after a few days. Follow-up care Follow up as directed with your dentist or an oral surgeon. Once an infection oc curs in a tooth, it will continue to be a problem until the infection is drained . This is done through surgery or a root canal. Or you may need to have your too th pulled. When to seek medical advice Call your health care provider right awayif any of these occur: Your face becomes more swollen or red Your eyelids become swollen Pain gets worse or spreads to your neck Fever over 100.4 F (38.0 C) Unusual drowsiness Headache or stiff neck Weakness or fainting Pus drains from the tooth Difficulty swallowing or breathing [id number] [employer]. [address] [place] [address], [place] [address]. All rights reserved. This information is not intended as a substitute for pro fessional medical care. Always follow your healthcare professional's instruction s. ENSATION ASSOCIATE documented in this encounter Progress Notes * Francoise Baker NP - 09/02/2017 8:40 AM COMPENSATION ASSOCIATE Patient ID: Caren Patten is a 67 y.o. female Subjective: Patient presents with Dental Pain (broke tooth wednesday night while in ER SLE, yodit ng treated for flu A, doesn't have a dentist) Presenting today for left upper tooth pain. She was in the ER on 08/29/17 for infl uenza A and her tooth broke while eating an apple. She was admitted for influenz a and COPD exacerbation, discharged yesterday. She did not mention her tooth samuel n to them, but her pain has increased and she needed to be seen for it. She has not filled her Tamiflu script from yesterday, encouraged her to jacey. Her breath ing has improved since being discharged. She has not tried anything OTC for her dental discomfort. Afebrile currently. She has not seen a dentist for over 15 ye ars. Patient Active Problem List Diagnosis SNOMED CT(R) [...] type II (HCC) TYPE 2 DIABETES MELLITUS Allergies: Allergies Allergen Reactions Lisinopril Anaphylaxis Metformin Anaphylaxis Sulfa (Sulfonamide Antibiotics) Hives Medications: Current Outpatient Prescriptions on File Prior to Visit Medication Sig Dispense Refill albuterol (VENTOLIN HFA) 90 mcg/actuation HFA inhaler INHALE 1 PUFF EVERY 4 HOURS NEEDED FOR WHEEZING 18 g 2 amitriptyline (ELAVIL) 25 MG tablet Take 1 tablet (25 mg total) by mouth nig htly. 90 tablet 1 amLODIPine (NORVASC) 2.5 MG tablet Take 2 tablets (5 mg total) by mouth eve y. Take one daily. 90 tablet 0 ASCORBIC ACID, VITAMIN C, 500 MG tablet TK 1 T PO D 0 BIOTIN ORAL Take 2 tablets by [...] daily. use as directed 100 each 0 metaxalone (SKELAXIN) 800 MG tablet Take 1 tablet by mouth nightly. 0 metoprolol tartrate (LOPRESSOR) 100 MG tablet Take 1 tablet (100 mg total) b y mouth 2 (two) times a day. 180 tablet 0 NUCYNTA 50 mg tablet Take 50 mg by mouth every 12 (twelve) hours. predniSONE (DELTASONE) 10 MG tablet Take 1 tablet (10 mg total) by mouth See Admin Instructions. 40 tablet 0 simvastatin (ZOCOR) 20 MG tablet Take 1 tablet (20 mg total) by mouth nightl y. 90 tablet 1 hydrocodone-guaifenesin 2.5-200 mg/5 mL Soln Take 5 mL/1.7m2 by mouth every 8 (eight) hours as needed. 118 mL 0 ipratropium-albuterol (DUO-NEB) 0.5-3 mg/3 mL nebulizer Inhale 3 mL 4 (four) times a day. 360 mL 11 oseltamivir (TAMIFLU) 75 MG capsule Take 1 capsule (75 mg total) by mouth 2 (two) times a day. 4 capsule 0 OXYGEN THERAPY 2 L/min as needed. Current Facility-Administered Medications on File Prior to Visit Medication Dose Route Frequency Provider Last Rate Last Dose [DISCONTINUED] acetaminophen (TYLENOL) suppository 325-650 mg 325-650 mg Re ctal Q6H PRN Lilibeth Redmond RN FOOD AND BEVERAGE ATTENDANT [DISCONTINUED] acetaminophen (TYLENOL) tablet 325-650 mg 325-650 mg Oral Q6 H PRN Lilbieth Redmond RN FOOD AND BEVERAGE ATTENDANT [DISCONTINUED] aluminum-magnesium hydroxide-simethicone (MAALOX PLUS) 400-40 0-40 mg/5 mL suspension 15 mL 15 mL Oral Q4H PRN Lilibeth Redmond RN FOOD AND BEVERAGE ATTENDANT [DISCONTINUED] amitriptyline (ELAVIL) tablet 25 mg 25 mg Oral Nightly Fiorella Redmond RN FOOD AND BEVERAGE ATTENDANT 25 mg at 08/31/17 2134 [DISCONTINUED] amLODIPine (NORVASC) tablet 5 mg 5 mg Oral Daily Lilibeth sin RN FOOD AND BEVERAGE ATTENDANT 5 mg at 09/01/17 0850 [DISCONTINUED] benzocaine-menthol (CEPACOL) lozenge 1 lozenge 1 lozenge Buc rosalind Q1H PRN Lilibeth Redmond RN FOOD AND BEVERAGE ATTENDANT [DISCONTINUED] benzonatate (TESSALON) capsule 100 mg 100 mg Oral TID PRN Ashley Redmond RN FOOD AND BEVERAGE ATTENDANT 100 mg at 08/31/17 0358 [DISCONTINUED] bisacodyl (DULCOLAX) suppository 10 mg 10 mg Rectal Daily CA N Lilibeth Redmond RN FOOD AND BEVERAGE ATTENDANT [DISCONTINUED] celecoxib (CeleBREX) capsule 200 mg 200 mg Oral Daily Santa Julian MD 200 mg at 09/01/17 0850 [DISCONTINUED] citalopram (CeleXA) tablet 20 mg 20 mg Oral Daily Lilibeth lucas RN FOOD AND BEVERAGE ATTENDANT 20 mg at 09/01/17 0850 [DISCONTINUED] dextrose 10% (D10W) bolus 125-250 mL 125-250 mL Intravenous PRN Lilibeth Redmond RN FOOD AND BEVERAGE ATTENDANT [DISCONTINUED] dextrose 50% (D50W) 50 % injection 25-50 mL 25-50 mL Intrave nous PRN Lilibeth Redmond RN FOOD AND BEVERAGE ATTENDANT [DISCONTINUED] dextrose 50% (D50W) syringe 25-50 mL 25-50 mL Intravenous CA N Lilibeth Redmond RN FOOD AND BEVERAGE ATTENDANT [DISCONTINUED] docusate sodium (COLACE) capsule 100 mg 100 mg Oral BID PRN Lilibeth Redmond RN FOOD AND BEVERAGE ATTENDANT [DISCONTINUED] fluticasone-vilanterol (BREO ELLIPTA) 200-25 mcg/actuation in haler 1 puff 1 puff Inhalation Daily Lilibeth Redmond RN FOOD AND BEVERAGE ATTENDANT Stopped at 06/09 0900 [DISCONTINUED] gabapentin (NEURONTIN) capsule 300 mg 300 mg Oral TID Lilibeth Redmond RN FOOD AND BEVERAGE ATTENDANT 300 mg at 09/01/17 0850 [DISCONTINUED] glucagon (GLUCAGEN) injection 1 mg 1 mg Intramuscular PRN Ramirez sana Redmond RN FOOD AND BEVERAGE ATTENDANT [DISCONTINUED] glucagon (GLUCAGEN) injection 1 mg 1 mg Subcutaneous PRN Antoinette Redmond RN FOOD AND BEVERAGE ATTENDANT [DISCONTINUED] guaiFENesin (MUCINEX) 12 hr tablet 1,200 mg 1,200 mg Oral BI D Lilibeth Redmond RN FOOD AND BEVERAGE ATTENDANT 1,200 mg at 09/01/17 0850 [DISCONTINUED] heparin (porcine) 5,000 unit/mL injection 5,000 Units 5,000 Units Subcutaneous Q8H Lilibeth Redmond RN FOOD AND BEVERAGE ATTENDANT 5,000 Units at 09/01/17 0545 [DISCONTINUED] insulin glargine (LANTUS) injection 15 Units 15 Units Subcut aneous Nightly Maikel Gasca MD 15 Units at 08/31/17 2134 [DISCONTINUED] insulin lispro (HumaLOG) injection 2-12 Units 2-12 Units Sub cutaneous 4 times daily before meals and nightly Maikel Gasca MD 2 Units at 1320 [DISCONTINUED] ipratropium-albuterol (DUO-NEB) 0.5-3 mg/3 mL nebulizer solut ion 3 mL 3 mL Inhalation 4x daily Lilibeth Redmond RN FOOD AND BEVERAGE ATTENDANT Stopped at 1600 [DISCONTINUED] ipratropium-albuterol (DUO-NEB) 0.5-3 mg/3 mL nebulizer solut ion 3 mL 3 mL Inhalation PRN Preethi Zavala MD 3 mL at 08/31/17 0432 [DISCONTINUED] metaxalone (SKELAXIN) tablet 800 mg 800 mg Oral Nightly Susa yoshi Redmond RN FOOD AND BEVERAGE ATTENDANT 800 mg at 08/31/172132 [DISCONTINUED] metoprolol tartrate (LOPRESSOR) tablet 100 mg 100 mg Oral BI D Lilibeth Redmond RN FOOD AND BEVERAGE ATTENDANT 100 mg at 09/01/17 0849 [DISCONTINUED] miconazole nitrate (ALOE VESTA) 2 % ointment Topical TID CA N Lilibeth Redmond RN FOOD AND BEVERAGE ATTENDANT [DISCONTINUED] ondansetron (ZOFRAN) injection 4 mg 4 mg Intravenous Q6H PRN Omar Vásquez MD [DISCONTINUED] oseltamivir (TAMIFLU) capsule 75 mg 75 mg Oral BID Ralf borden MD 75 mg at 09/01/17 0850 [DISCONTINUED] polyethylene glycol (GLYCOLAX) packet 17 g 17 g Oral Daily P ADAM Redmond RN FOOD AND BEVERAGE ATTENDANT [DISCONTINUED] pravastatin (PRAVACHOL) tablet 40 mg 40 mg Oral Nightly Baltazar Redmond RN FOOD AND BEVERAGE ATTENDANT 40 mg at 08/31/172132 [DISCONTINUED] predniSONE (DELTASONE) tablet 40 mg 40 mg Oral Daily Maikel Gasca MD 40 mg at 09/01/17 0850 [DISCONTINUED] promethazine-codeine (PHENERGAN with CODEINE) 6.25-10 mg/5 mL syrup 5 mL 5 mL Oral Q4H PRN Preethi Zavala MD 5 mL at 09/01/17 0849 [DISCONTINUED] sodium chloride (OCEAN) 0.65 % nasal spray 1 spray 1 spray E ach Nare PRN Lilibeth Redmond RN FOOD AND BEVERAGE ATTENDANT [DISCONTINUED] traMADol (ULTRAM) tablet 50 mg 50 mg Oral Q6H PRN Rosa Isela Rg DO 50 mg at 09/01/17 1050 History: Past Medical History: Diagnosis Date Allergic [...] Code status: Full Review of Systems Constitutional: Negative for appetite change and fever. HENT: Positive for dental problem. Negative for drooling, sore throat and troubl e swallowing. Gastrointestinal: Negative for diarrhea, nausea and vomiting. Skin: Negative for rash. Hematological: Positive for adenopathy. Psychiatric/Behavioral: Negative for confusion. Objective: BP (P) 130/78 | Pulse (P) 62 | Temp (P) 36.7 C (98 F) | Ht (P) 1.575 m (5 ' 2") | Wt (P) 99.8 kg (220 lb) | SpO2 (P) 92% | BMI (P) 40.24 kg/m Physical Exam Constitutional: She is oriented to person, place, and time. She appears well-dev eloped and well-nourished. She is cooperative. HENT: Head: Normocephalic and atraumatic. Right Ear: Hearing normal. Left Ear: Hearing normal. Mouth/Throat: No posterior oropharyngeal edema or posterior oropharyngeal erythe ma. Eyes: Pupils are equal, round, and reactive to light. Neck: Neck supple. Cardiovascular: Normal rate. Pulmonary/Chest: Effort normal. No accessory muscle usage. No tachypnea. No resp iratory distress. She has no decreased breath sounds. She has wheezes ( Minimal) . She has no rhonchi. Abdominal: Soft. She exhibits no distension. There is no tenderness. Lymphadenopathy: Head (right side): Submental adenopathy present. No submandibular and no to nsillar adenopathy present. Head (left side): Submental adenopathy present. No submandibular and no ton sillar adenopathy present. She has no cervical adenopathy. Neurological: She is alert and oriented to person, place, and time. Skin: Skin is warm and dry. Psychiatric: She has a normal mood and affect. Her speech is normal and behavior is normal. Thought content normal. Nursing note and vitals reviewed. ICD-10-CM ICD-9-CM 1. Dental infection K04.7 522.4 amoxicillin-clavulanate (AUGMENTIN) 875-125 mg p er tablet Stressed the importance of proper follow up with a dentist - she was given phone numbers for dental offices that see emergent cases. Encouraged her to call them today. Discussed precautions that require an ER visit, she understands. O2 sat 92%, but she has acrylic nails and it is difficult to read. Her breathing has im proved since being discharged and she states her baseline is in the low 90s. Return for Call a Dentist today to schedule an appointment. Go to the ER with stas ruby. . Patient Instructions Dental Abscess An abscess is a pocket of pus at the tip of a tooth root in your jaw bone. It is caused by an infection at the root of the tooth. It can cause pain and swelling of the gum, cheek, or jaw.Pain may spread from the tooth to your ear or the a irving of your jaw on the same side. If the abscess isnt treated, it spreads to the gum near the tooth. This causes more swelling and pain. More serious infecti ons cause your face to swell. A dental abscess usually starts with a crack or cavity in the tooth. The pain is often made worse by drinking hot or cold fluids, or biting on hard foods. Home care Follow these guidelines when caring for yourself at home: Avoid hot and cold foods and drinks. Your tooth may be sensitive to changes i n temperature. Dont chew on the side of the infected tooth. If your tooth is chipped or cracked, or if there is a large open cavity, put oil of cloves directly on the tooth to relieve pain. You can buy oil of cloves a t [employer]. Some pharmacies carry an qihl-jmx-cnmbque "toothache kit." This co ntains a paste that you can put on the exposed tooth to make it less sensitive. Put a cold pack on your jaw over the sore area to help reduce pain. You may use acetaminophen or ibuprofen to ease pain, unless another medicine was prescribed. Note: If you have chronic liver or kidney disease, talk with you r health care provider before using these medicines. Also talk with your provide r if youve had a stomach ulcer or GI bleeding. An antibiotic will be prescribed. Take it until finished, even if you are fee ling better after a few days. Follow-up care Follow up as directed with your dentist or an oral surgeon. Once an infection oc curs in a tooth, it will continue to be a problem until the infection is drained . This is done through surgery or a root canal. Or you may need to have your too th pulled. When to seek medical advice Call your health care provider right awayif any of these occur: Your face becomes more swollen or red Your eyelids become swollen Pain gets worse or spreads to your neck Fever over 100.4 F (38.0 C) Unusual drowsiness Headache or stiff neck Weakness or fainting Pus drains from the tooth Difficulty swallowing or breathing 2455-1051 [employer]. [address] [place] [address], [place] [address] 7. All rights reserved. This information is not intended as a substitute for pro fessional medical care. Always follow your healthcare professional's instruction s. ENSATION ASSOCIATE documented in this encounter Plan of Treatment Care Team Description Date [place] [address] [address] [phone] 02/29/2020 Office Visit Urology documented as of this encounter Visit Diagnoses Diagnosis Dental infection documented in this encounter Additional Health Concerns Resolved Time Infection Noted Time 04/19/2018 12:13 PM CDT Influenza 08/30/2017 10:13 AM COMPENSATION ASSOCIATE documented as of this encounter
--- OUTSIDE RECORDS SUMMARY | 2019-11-28 22:25 | XMS REPORT | Encounter Summary ---
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 Care Bricklayer Helper Name Role Phone Ebony Sharp MD PCP Reason for Visit * Reason Comments Follow-up eldon/ left ankle/ [id number] kk a LM to notify of BS location Encounter Details Care Team Description Date Type Department Adelaida Olivas MD [address] [facility] [address] [place] [address] [phone] 10/07/2017 [facility] [address] [facility] [address] [place], [place] [id number] Social History Date Tobacco Use Types Packs/Day [...] Description Date [place] [address] [place] [address] [phone] 02/29/2020 Office Visit Urology documented as of this encounter Visit Diagnoses Not on filedocumented in this encounter Additional Health Concerns Resolved Time Infection Noted Time 04/19/2018 12:13 PM CDT Influenza 08/30/2017 10:13 AM RESEARCH ASSOC documented as of this encounter
--- OUTSIDE RECORDS SUMMARY | 2019-11-28 22:25 | XMS REPORT | Encounter Summary ---
Author Author [facility] Organization [facility] Address Unknown Phone Unavailable Care Team Providers Care Patient Safety Manager Name Role Phone Ebony Sharp MD PCP Encounter Details Care Team Description Date Type Department Adelaida Olivas MD [address] [facility] [address] [place] [address] 09/09/2017 [facility] [address] [facility] [address] [place], [place] [id number] Social History Date Tobacco Use Types Packs/Day [...] Clinic Note - Adelaida Olivas MD - 09/09/2017 4:04 PM GYM SUPERVISOR Prescriptions: CELEBREX 200 MG ORAL CAPSULE (CELECOXIB) 1 pill Daily with food #30[Capsule] x 0 Entered by: Aline Joy Authorized by: Adelaida Olivas MD Signed by: Aline Joy on 09/09/2017 Method used: Electronically to [facility] (retail) [address] [place] [address] Ph: [phone] Fax: [phone] RxID: [id number] Resend from failed escript request. -Aline Joy, September 09, 2017 4:05 PM SUPERVISOR documented in this encounter Plan of Treatment Care Team Description Date [place] [address] [place] [address] [phone] 02/29/2020 Office Visit Urology documented as of this encounter Visit Diagnoses Not on filedocumented in this encounter Additional Health Concerns Resolved Time Infection Noted Time 04/19/2018 12:13 PM CDT Influenza 08/30/2017 10:13 AM GYM SUPERVISOR 08/30/2019 1:09 PM GYM SUPERVISOR Influenza - Rule Out 08/30/2019 11:32 AM GYM SUPERVISOR 09/17/2019 8:17 AM GYM SUPERVISOR RSV 08/31/2019 6:35 PM GYM SUPERVISOR documented as of this encounter
--- OUTSIDE RECORDS SUMMARY | 2019-11-28 22:25 | XMS REPORT | Encounter Summary ---
Author Author [facility] Organization [facility] Address Unknown Phone Unavailable Care Team Providers Care Whipped Topping Supervisor Name Role Phone Ebony Sharp MD PCP Encounter Details Care Team Description Date Type Department Ebony Sharp MD [address] [facility] [address] [place] [address] 09/03/2017 Telephone [facility] (walk-in clinic) [address] [facility] [address] [place] [address] Social History Date Tobacco Use [...] Telephone Encounter - Sheryl Joaquin MA - 09/03/2017 9:29 AM SPOT CHECKER Spoke with Patient and told her cyclobenzaprine was denied. Told her we could se nd it to [facility] since its on the $4.00 lists and patient declined stating she's not going to take it anymore. I told her if she changes her mind to please let us know and we can send it to [facility]. Patient say OK CHECKER documented in this encounter Plan of Treatment Care Team Description Date [place] [address] [place] [address] [phone] 02/29/2020 Office Visit Urology documented as of this encounter Visit Diagnoses Not on filedocumented in this encounter Additional Health Concerns Resolved Time Infection Noted Time 04/19/2018 12:13 PM CDT Influenza 08/30/2017 10:13 AM SPOT CHECKER documented as of this encounter
--- OUTSIDE RECORDS SUMMARY | 2019-11-28 22:25 | XMS REPORT | Encounter Summary ---
Author Author [facility] Organization [facility] Address Unknown Phone Unavailable Care Team Providers Care Painter Set Name Role Phone Ebony Sharp MD PCP Reason for Visit * Reason Comments Other Encounter Details Care Team Description Date Type Department Ebony Sharp MD [address] [facility] [address] [place] [address] [phone] Other 09/20/2017 Refill [facility] (walk-in clinic) [address] [facility] [address] [place], [place] [id number] Social History Date Tobacco Use Types Packs/Day [...] Description Date [place] [address] [place] [address] [phone] 02/29/2020 Office Visit Urology documented as of this encounter Visit Diagnoses Not on filedocumented in this encounter Additional Health Concerns Resolved Time Infection Noted Time 04/19/2018 12:13 PM CDT Influenza 08/30/2017 10:13 AM ASSISTED LIVING DIRECTOR documented as of this encounter
--- OUTSIDE RECORDS SUMMARY | 2019-11-28 22:25 | XMS REPORT | Encounter Summary ---
Author Author [facility] Organization [facility] Address Unknown Phone Unavailable Care Team Providers Care Check Airman Name Role Phone Ebony Sharp MD PCP Encounter Details Care Team Description Date Type Department [place] 10/25/2017 Hist-Other [facility] [address] [place] [address] Social History Date Tobacco Use Types Packs/Day [...] Description Date [place] [address] [place] [address] [phone] 02/29/2020 Office Visit Urology documented as of this encounter Procedures Comments Procedure Name Priority Date/Time Associated Diag nosis XR ANKLE LEFT Routine 10/25/2017 1:35 PM CONTRACT PROCESSOR documented in this encounter Results * XR Ankle left (10/25/2017 1:35 PM CONTRACT PROCESSOR) Specimen Performing Organization Address City/State/Zipcode Ph one Number LEVI documented in this encounter Visit Diagnoses Not on filedocumented in this encounter Additional Health Concerns Resolved Time Infection Noted Time 04/19/2018 12:13 PM CDT Influenza 08/30/2017 10:13 AM CONTRACT PROCESSOR documented as of this encounter
--- OUTSIDE RECORDS SUMMARY | 2019-11-28 22:25 | XMS REPORT | Encounter Summary ---
Author Author [facility] Organization [facility] Address Unknown Phone Unavailable Care Team Providers Care Field Marketing Specialist Name Role Phone Ebony Sharp MD PCP Encounter Details Care Team Description Date Type Department Adelaida Olivas MD [address] [facility] [address] [place], [place] [id number] 10/07/2017 Hist-Transcript [facility] Encounter Specialists [address] [facility] [address] [place], [place] [id number] Social History Date Tobacco Use Types Packs/Day [...] Progress Notes * Adelaida Olivas MD - 10/07/2017 2:14 PM FRESH FOOD MANAGER - History of Present Illness Patient comes in today for evaluation of her left lower extremity. She is approx imately 6 months status post tibiotalar fusion with osteotomy stimulator. She diggs s been weight-bearing. Pain is worse with weather changes. In addition, patient states she is having pain at her right groin that shooting down her leg. It started a few months ago. It comes and goes. It's worse with c ertain movement. She states using lidocaine patch for her back has helped. Examination An 67-year-old female with status post arthrodesis. Her incisions appear healing well. No tenderness upon palpation. She has some swelling, which is expected. S he is able to inversion and eversion without discomfort. She has good dorsalis p sim pulses. No calf pain. Negative of Owen's signs. In addition, right straigh leg increases discomfort with her back and posterior right thigh. Impression s/p tibiolar fusion 6 months out currently improved chronic pain syndrome back pain Plan We will continue her Nucynta enought until she sees Dr. Escalera to manage her pain a nd evaluates her back pain. Continue weight bearing as tolearted. Instructions o n medications and side effects. Follow-up in 8 weeks or sooner if concerns. . Past Medical History High Blood Pressure Arthritis Osteoporosis COPD / Emphysema Diabetes Surgical History Surgical history includes Appendectomy Tonsillectomy Section(1) Mabel dder(laparoscopic) D & C(single) Hysterectomy(complete) Total Knee [...] 1 po q daily VITAMIN D (ERGOCALCIFEROL) 01129 UNIT ORAL CAPSULE (ERGOCALCIFEROL) 1 po q weekl y CELEBREX 200 MG ORAL CAPSULE (CELECOXIB) 1 pill Daily with food NUCYNTA 50 MG ORAL TABLET (TAPENTADOL HCL) One PO Q 4 hours PRN pain SKELAXIN 800 MG ORAL TABLET (METAXALONE) one, po, at bedtime as needed for muscl e spasm LIDODERM 5 % EXTERNAL PATCH (LIDOCAINE) apply to painful area 12 hours on, 12 ho urs off Allergies: LISINOPRIL (LISINOPRIL) GLUCOPHAGE (METFORMIN HCL) SULFA (SULFADIAZINE) METFORMIN HCL (METFORMIN HCL) I have reviewed and concur with the medical, social and family histories collect ed and entered on my behalf, on 10/07/2017. -Adelaida Olivas MD, October 07, 2017 3:10 PM Prescriptions: NUCYNTA 50 MG ORAL TABLET (TAPENTADOL HCL) One PO Q 4 hours PRN pain #60 x 0 Entered by: Trevor Tillman APRN Authorized by: Adelaida Olivas MD Signed by: Trevor Tillman APRN on 10/07/2017 Method used: Print then Give to Patient RxID: [id number] LIDODERM 5 % EXTERNAL PATCH (LIDOCAINE) apply to painful area 12 hours on, 12 ho urs off #30 Undefined x 0 Entered by: Trevor Tillman APRN Authorized by: Adelaida Olivas MD Signed by: Trevor Tillman APRN on 10/07/2017 Method used: Print then Give to Patient RxID: [id number] Vital Signs Ht: 62 in. Wt: 236 lbs. T: 98.4 deg F. T site: oral BMI: 43.16 She was encourage to talk with their primary care provider about weight manageme nt. BP: / Radiographs: Three views, Ap, lateral and oblique radiographic views of the left ankleordered and obtained in the office today reveal: Intact appearance of hardwares with bone stimulator status post tibiolar fusion . No acute displaced fractures, dislocation or destructive lesions. I would like her to return in 8 weeks and obtain a weight bearing x-ray of their left ankle. Orders from current office visit: PQRS 128a PQRS 47NL PQRS 226NS PQRS 317n PQRS 130 Measure 109 Pain Managment Consult * H FOOD MANAGER documented in this encounter Plan of Treatment Care Team Description [place] [address] [place] [address] [phone] 02/29/2020 Office Visit Urology documented as of this encounter Visit Diagnoses Not on filedocumented in this encounter Additional Health Concerns Resolved Time Infection Noted Time 04/19/2018 12:13 PM CDT Influenza 08/30/2017 10:13 AM FRESH FOOD MANAGER 08/30/2019 1:09 PM FRESH FOOD MANAGER Influenza - Rule Out 08/30/2019 11:32 AM FRESH FOOD MANAGER 09/17/2019 8:17 AM FRESH FOOD MANAGER RSV 08/31/2019 6:35 PM FRESH FOOD MANAGER documented as of this encounter
--- OUTSIDE RECORDS SUMMARY | 2019-11-28 22:25 | XMS REPORT | Encounter Summary ---
Author Author [facility] Organization [facility] Address Unknown Phone Unavailable Care Team Providers Care Balance Bridge Assembler Name Role Phone Ebony Sharp MD PCP Encounter Details Care Team Description Date Type Department Adelaida Olivas MD [address] [facility] [address] [place], [place] [id number] 10/25/2017 Hist-Transcript [facility] ion Encounter Specialists [address] [facility] [address] [place], [place] [id number] Social History Date Tobacco Use Types Packs/Day [...] Progress Notes * Adelaida Olivas MD - 10/25/2017 1:16 PM MOTION PICTURE DIRECTOR - History of Present Illness Presents today for evaluation of her left lower extremity. She is post operative on her left lower extremity. She did have a fall. She has been having pain on h er posterior ankle. She feels like she may have pulled a muscle when she fell. Examination Physical examination reveals a pleasant 67-year-old woman whose surgical incisio n is otherwise very well healed. She is able to plantar flex and dorsiflex her foot with minimal complaints of pain. This is obviously coming from midfoot. Her skin is otherwise intact. There is no overt evidence of delayed wound heali ng. Impression LEFT ANKLE PAIN ([id number]-W82.572) CONTRACTURE OF ANKLE JOINT LEFT (ZHV20-F01.572) LEFT ANKLE PRIMARY OSTEOARTHRITIS (YSM55-C15.072) Status post left ankle arthrodesis. Plan At this point, we did discuss weaning her off of pain medicine. I will see her back in three weeks for reevaluation. Past Medical History High Blood Pressure Arthritis Osteoporosis COPD / Emphysema Diabetes Surgical History Surgical history includes Appendectomy Tonsillectomy Section(1) Gallbldina dder(laparoscopic) D & C(single) Hysterectomy(complete) Total Knee [...] 1 po q daily VITAMIN D (ERGOCALCIFEROL) 13240 UNIT ORAL CAPSULE (ERGOCALCIFEROL) 1 po q [...] MG TABS (HYDROCODONE-ACETAMINOPHEN) 4 tablets daily PO Allergies: LISINOPRIL (LISINOPRIL) GLUCOPHAGE (METFORMIN HCL) SULFA (SULFADIAZINE) METFORMIN HCL (METFORMIN HCL) I have reviewed and concur with the medical, social and family histories collect ed and entered on my behalf, on 10/25/2017. -Adelaida Olivas MD, October 25, 2017 1:49 PM Prescriptions: NORCO 5-325 MG TABS (HYDROCODONE-ACETAMINOPHEN) 4 tablets daily PO #120 Undefin e x 0 Entered by: Rg Lopez Authorized by: Adelaida Olivas MD Signed by: Rg Lopez on 10/25/2017 Method used: Print then Give to Patient RxID: [id number] SKELAXIN 800 MG ORAL TABLET (METAXALONE) one, po, at bedtime as needed for muscl e spasm #90 x 0 Entered by: Rg Lopez Authorized by: Adelaida Olivas MD Signed by: Rg Lopez on 10/25/2017 Method used: Print then Give to Patient RxID: [id number] NORCO 5-325 MG TABS (HYDROCODONE-ACETAMINOPHEN) 4 tablets daily PO #120 Undefin e x 0 Entered by: Sharona Scott Authorized by: Adelaida Olivas MD Signed by: Sharona Scott on 10/25/2017 Method used: Print then Give to Patient RxID: [id number] SKELAXIN 800 MG ORAL TABLET (METAXALONE) one, po, at bedtime as needed for muscl e spasm #90 x 0 Entered by: Sharona Scott Authorized by: Adelaida Olivas MD Signed by: Sharona Scott on 10/25/2017 Method used: Print then Give to Patient RxID: [id number] NORCO 5-325 MG TABS (HYDROCODONE-ACETAMINOPHEN) 4 tablets daily PO #120 Undefin e x 0 Entered by: Sharona Scott Authorized by: Adelaida Olivas MD Signed by: Sharona Scott on 10/25/2017 Method used: Print then Give to Patient RxID: [id number] SKELAXIN 800 MG ORAL TABLET (METAXALONE) one, po, at bedtime as needed for muscl e spasm #90 x 0 Entered by: Sharona Scott Authorized by: Adelaida Olivas MD Signed by: Sharona Scott on 10/25/2017 Method used: Print then Give to Patient RxID: [id number] NORCO 5-325 MG TABS (HYDROCODONE-ACETAMINOPHEN) 4 tablets daily PO #120 Undefin e x 0 Entered by: Sharona Scott Authorized by: Adelaida Olivas MD Signed by: Sharona Scott on 10/25/2017 Method used: Print then Give to Patient RxID: [id number] Vital Signs Ht: 62 in. Wt: 236 lbs. T: 96.2 deg F. T site: tympanic BMI: 43.16 She was encourage to talk with their primary care provider about weight manageme nt. BP: 135/77 Radiographs: Three views, Ap, lateral and oblique radiographic views of the left ankle and fo ot does not demonstrate any overt evidence of fracture or bony subluxation. I would like her to return in 6 weeks and obtain a weight bearing x-ray of their left ankle. Orders from current office visit: Ankle x-ray 3 views PQRS 128a PQRS 47NL PQRS 226NS PQRS 317n PQRS [address] Ankle w/o contrast * I,Sharona Scott, have scribed the history and exam for, and in the presence of Dr. Adelaida Olivas MD. I Dr. Adelaida Olivas MD have reviewed the scribed history and exam, no changes are required. Signed by Adelaida Olivas MD on October 25, 2017 at 1:44 PM Signed by Adelaida Olivas MD on October 28, 2017 at 10:35 AM X-Ray Report Three views, Ap, lateral and oblique radiographic views of the left ankle and fo ot does not demonstrate any overt evidence of fracture or bony subluxation. documented in this encounter Plan of Treatment Care Team Description [place] [address] [place] [address] [phone] 02/29/2020 Office Visit Urology documented as of this encounter Visit Diagnoses Not on filedocumented in this encounter Additional Health Concerns Resolved Time Infection Noted Time 04/19/2018 12:13 PM CDT Influenza 08/30/2017 10:13 AM MOTION PICTURE DIRECTOR 08/30/2019 1:09 PM MOTION PICTURE DIRECTOR Influenza - Rule Out 08/30/2019 11:32 AM MOTION PICTURE DIRECTOR 09/17/2019 8:17 AM MOTION PICTURE DIRECTOR RSV 08/31/2019 6:35 PM MOTION PICTURE DIRECTOR documented as of this encounter
--- OUTSIDE RECORDS SUMMARY | 2019-11-28 22:25 | XMS REPORT | Encounter Summary ---
Author Author [facility] Organization [facility] Address Unknown Phone Unavailable Care Team Providers Care Account Analyst Name Role Phone Ebony Sharp MD PCP Reason for Visit * Reason Comments Follow-up Margot left ankle, she had a fall on 10/16/17 and reinjured the ankle she had surgery on 10/22/17 lds Encounter Details Care Team Description Date Type Department Adelaida Olivas MD [address] [facility] [address] [place] [address] [phone] 10/25/2017 Hist-Appointmen [facility] Specialists [address] [facility] [address] [place], [place] [phone] Social History Date Tobacco Use Types Packs/Day [...] Description Date [place] [address] [place] [address] [phone] 02/29/2020 Office Visit Urology documented as of this encounter Visit Diagnoses Not on filedocumented in this encounter Additional Health Concerns Resolved Time Infection Noted Time 04/19/2018 12:13 PM CDT Influenza 08/30/2017 10:13 AM CRUSHER documented as of this encounter
--- OUTSIDE RECORDS SUMMARY | 2019-11-28 22:26 | XMS REPORT | Encounter Summary ---
Author Author [facility] Organization [facility] Address Unknown Phone Unavailable Care Team Providers Care Strickler Attendant Name Role Phone Ebony Sharp MD PCP Reason for Visit * Reason Comments Follow-up recheck left ankle Encounter Details Care Team Description Date Type Department Adelaida Olivas MD [address] [facility] [address] [place] [address] [phone] 08/05/2017 [facility] [address] [facility] [address] [place] [address] Social History Date Tobacco Use Types Packs/Day [...] Description Date [place] [address] [place] [address] [phone] 02/29/2020 Office Visit Urology documented as of this encounter Visit Diagnoses Not on filedocumented in this encounter Additional Health Concerns Resolved Time Infection Noted Time 04/19/2018 12:13 PM CDT Influenza 08/30/2017 10:13 AM AUDOGRAPH OPERATOR documented as of this encounter
--- OUTSIDE RECORDS SUMMARY | 2019-11-28 22:26 | XMS REPORT | Encounter Summary ---
Author Author [facility] Organization [facility] Address Unknown Phone Unavailable Care Team Providers Care Capper Machine Operator Name Role Phone Ebony Sharp MD PCP Reason for Referral * MRI/CAT/PET Scan (Routine) Referred By Contact Referred To Contact Status Reason Specialty Diagnoses / Procedures Adelaida Olivas MD [address] [facility] [address] [place] [address] [place] [address] Closed Radiology Diagnoses Left ankle pain Ankle joint contracture, 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 P rocedures CT Ankle wo contrast left Encounter Details Care Team Description Date Type Department Adelaida Olivas MD [address] [facility] [address] [place], [place] [phone] Left ankle pain (Primary Dx); Ankle joint contracture, left; Pseudarthrosis after fusion or arthrodesis 07/19/2017 Transcribe [facility] [address] [place], [place] [id number] Social History Date Tobacco Use Types Packs/Day [...] Description Date [place] [address] [place] [address] [phone] 02/29/2020 Office Visit Urology documented as of this encounter Results * CT Ankle wo contrast left (08/13/2017 2:16 PM IRRIGATION SUPERVISOR) Specimen Impressions Performed At 1. Status post revision tibiotalar arthrodesis. No evidence of LEVI hardware-related complication. 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 2. Subcutaneous edema/fluid particula rly along the lateral aspect of the distal calf and ankle. No evidence of localized drainable fluid collection on this noncontrast enhanced study. READING SITE: [facility] Imaging Narrative Performed At Patient: ISIAH BENÍTEZ Sex#: F # [id number] Jose#: [id number] Location: [facility] CT Procedure Requested: [id number] CT ANKLE WO CONTRAST LEFT Reason for Exam: Left ankle pain Exam Ordered: 08/13/2017 1 404 Exam Date/Time: 08/13/2017 14 16 Begin exam date/time: 08/13/[address] ANKLE WO CONTRAST LEFT INDICATION: Left ankle pain Ankle joint contracture, left Pseudarthrosis after fusion or arthrode sis COMPARISON: CT of the left ankle January 222016. Fluoroscopic radiographs of the left ankle 04/09/2017. TECHNIQUE: Contiguous helical multidete ctor CT images were obtained through the left ankle without IV contr ast. Multiplanar axial, coronal, sagittal and thin section bone algorith m reconstructed images were generated and reviewed. FINDINGS: Patient is status post surgery for fail ed tibiotalar arthrodesis. The distal fibula has been resected. Previo us arthrodesis screws have been removed. There has been placement of a new lateral plate across the tibiotalar joint with multiple screws i n the tibia and talus. One additional partially threaded cannulate d screw traverses the tibiotalar joint obliquely. Hardware appears intac t without evidence of periprosthetic fracture or loosening. G host tracks in the talus from previous hardware. As before the tibiotalar joint space is severely narrowed and the articular surface irregular. There is p robable bony bridging in the midportion of the joint (602:33 and 605 :93) similar to the prior study. Small bony fragments at the anterior an d posterior tibiotalar joint margins. Bony hypertrophy and irregular ity of the medial malleolus at the site of previous hardware. Severe disuse osteopenia. No evidence o f acute fracture. Bone stimulator device in the mid calf with a single le ad terminating at the lateral margin of the tibiotalar joint. Streak artifact limits evaluation of th e soft tissues. Subcutaneous edema/fluid in the medial and lateral a nkle, worse laterally (2:63). No evidence of drainable fluid collection on this noncontrast enhanced study. There is generalized muscle atro phy. The Achilles tendon appears grossly intact. Procedure Note Interface, Rad Results In - 08/13/2017 3:18 PM IRRIGATION SUPERVISOR Patient: ISIAH BENÍTEZ Sex#: Paulina # [id number] Jose#: [id number] Location: [facility] CT Procedure Requested: [id number] CT ANKLE WO CONTRAST LEFT Reason for Exam: Left ankle pain Exam Ordered: 08/13/2017 1404 Exam Date/Time: 08/13/2017 1416 Begin exam date/time: 08/13/[address] ANKLE WO CONTRAST LEFT INDICATION: Left ankle pain Ankle joint contracture, 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 COMPARISON: CT of the left ankle February 18, 2017. Fluoroscopic radiographs of the left ankle 04/09/2017. TECHNIQUE: Contiguous helical multidetector CT images were obtained through the left ankle without IV contrast. Multiplanar axial, coronal, sagittal and thin section bone algorithm reconstructed images were generated and reviewed. FINDINGS: Patient is status post surgery for failed tibiotalar arthrodesis. The distal fibula has been resected. Previous arthrodesis screws have been removed. There has been placement of a new lateral plate across the tibiotalar joint with multiple screws in the tibia and talus. One additional partially threaded cannulated screw traverses the tibiotalar joint obliquely. Hardware appears intact without evidence of periprosthetic fracture or loosening. Ghost tracks in the talus from previous hardware. As before the tibiotalar joint space is severely narrowed and the articular surface irregular. There is probable bony bridging in the midportion of the joint (602:33 and 605:93) similar to the prior study. Small bony fragments at the anterior and posterior tibiotalar joint margins. Bony hypertrophy and irregularity of the medial malleolus at the site of previous hardware. Severe disuse osteopenia. No evidence of acute fracture. Bone stimulator device in the mid calf with a single lead terminating at the lateral margin of the tibiotalar joint. Streak artifact limits evaluation of the soft tissues. Subcutaneous edema/fluid in the medial and lateral ankle, worse laterally (2:63). No evidence of drainable fluid collection on this noncontrast enhanced study. There is generalized muscle atrophy. The Achilles tendon appears grossly intact. IMPRESSION 1. Status post revision tibiotalar arth rodesis. No evidence of hardware-related complication. 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 2. Subcutaneous edema/fluid particularl y along the lateral aspect of the distal calf and ankle. No evidence of localized drainable fluid collection on this noncontrast enhanced study. READING SITE: [facility] Imaging Performing Organization Address City/State/Zipcode Ph one Number LEVI documented in this encounter Visit Diagnoses Diagnosis Left ankle pain Pain in joint, ankle and foot Ankle joint contracture, left Pseudarthrosis after fusion or arthrode sis Arthrodesis status documented in this encounter Additional Health Concerns Resolved Time Infection Noted Time 04/19/2018 12:13 PM CDT Influenza 08/30/2017 10:13 AM IRRIGATION SUPERVISOR 08/30/2019 1:09 PM IRRIGATION SUPERVISOR Influenza - Rule Out 08/30/2019 11:32 AM IRRIGATION SUPERVISOR 09/17/2019 8:17 AM IRRIGATION SUPERVISOR RSV 08/31/2019 6:35 PM IRRIGATION SUPERVISOR documented as of this encounter
--- OUTSIDE RECORDS SUMMARY | 2019-11-28 22:26 | XMS REPORT | Encounter Summary ---
Author Author [facility] Organization [facility] Address Unknown Phone Unavailable Care Team Providers Care Agricultural Extension Agent Name Role Phone Ebony Sharp MD PCP Reason for Visit * Reason Comments Follow-up eldon l ankle/t;m [id number]: Appt. Reminder (07/12/2017 06:14 PM) Phone Call - Responded "Yes" (Y=Answered - Yes) Encounter Details Care Team Description Date Type Department Adelaida Olivas MD [address] [facility] [address] [place] [address] [phone] 07/14/2017 Hist-Appointmen [facility] [address] [facility] [address] [place] [address] Social History Date Tobacco Use Types Packs/Day [...] Description Date [place] [address] [place] [address] [phone] 02/29/2020 Office Visit Urology documented as of this encounter Visit Diagnoses Not on filedocumented in this encounter Additional Health Concerns Resolved Time Infection Noted Time 04/19/2018 12:13 PM CDT Influenza 08/30/2017 10:13 AM COOK HELPER documented as of this encounter
--- OUTSIDE RECORDS SUMMARY | 2019-11-28 22:26 | XMS REPORT | Encounter Summary ---
Author Author [facility] Organization [facility] Address Unknown Phone Unavailable Care Team Providers Care Clerical Adjudicator Name Role Phone Ebony Sharp MD PCP Encounter Details Care Team Description Date Type Department Adelaida Olivas MD [address] [facility] [address] [place] [address] 07/26/2017 Hist-Telephone [facility] [address] [facility] [address] [place], [place] [phone] Social History Date Tobacco Use Types Packs/Day [...] Clinic Note - Adelaida Olivas MD - 07/26/2017 10:36 AM BAND CUTTING MACHINE OPERATOR Phone Note Call from Other Clinic Summary of call: Rosa with [facility] is calling. She states that the [facility] ents insurance changed on 07/23/[address] scan now requires prior auth. Sh e states the patient was scheduled today for the CT. She is requesting a call t o discuss if this needs to be rescheduled. Please call back at [phone] Call taken by: Trina Rhodes on July 26, 2017 10:38 AM Follow-up for Phone Call Follow-up Details: getting new auth for [employer] Follow-up by: Edith Bautista on July 26, 2017 10:46 AM CUTTING MACHINE OPERATOR documented in this encounter Plan of Treatment Care Team Description Date [place] [address] [place] [address] [phone] 02/29/2020 Office Visit Urology documented as of this encounter Visit Diagnoses Not on filedocumented in this encounter Additional Health Concerns Resolved Time Infection Noted Time 04/19/2018 12:13 PM CDT Influenza 08/30/2017 10:13 AM BAND CUTTING MACHINE OPERATOR 08/30/2019 1:09 PM BAND CUTTING MACHINE OPERATOR Influenza - Rule Out 08/30/2019 11:32 AM BAND CUTTING MACHINE OPERATOR 09/17/2019 8:17 AM BAND CUTTING MACHINE OPERATOR RSV 08/31/2019 6:35 PM BAND CUTTING MACHINE OPERATOR documented as of this encounter
--- OUTSIDE RECORDS SUMMARY | 2019-11-28 22:26 | XMS REPORT | Encounter Summary ---
Author Author [facility] Organization [facility] Address Unknown Phone Unavailable Care Team Providers Care Command And Control Officer Name Role Phone Ebony Sharp MD PCP Reason for Visit * Reason Comments Medication Refill Encounter Details Care Team Description Date Type Department Jennifer Feng RN Medication Refill 08/26/2017 Refill [facility] (walk-in clinic) [address] [facility] [address] [place] [address] Social History Date Tobacco Use Types Packs/Day [...] Telephone Encounter - Jennifer Feng RN - 08/26/2017 10:53 AM CHLORINE OPERATOR Last seen on 07/09/17. Refills requested for new pharm (these are only the ones our office has specifically refilled in Mar). Questioning if flexeril should be continued. Please advise. Thank you. RINE OPERATOR documented in this encounter Plan of Treatment Care Team Description [place] [address] [place] [address] [phone] 02/29/2020 Office Visit Urology documented as of this encounter Visit Diagnoses Not on filedocumented in this encounter Additional Health Concerns Resolved Time Infection Noted Time 04/19/2018 12:13 PM CDT Influenza 08/30/2017 10:13 AM CHLORINE OPERATOR documented as of this encounter
--- OUTSIDE RECORDS SUMMARY | 2019-11-28 22:26 | XMS REPORT | Encounter Summary ---
Author Author [facility] Organization [facility] Address Unknown Phone Unavailable Care Team Providers Care Motion And Time Study Teacher Name Role Phone Ebony Sharp MD PCP Encounter Details Care Team Description Date Type Department Adelaida Olivas MD [address] [facility] [address] [place] [address] [phone] 08/26/2017 Hist[facility]Other [facility] [address] [place] [address] Social History Date Tobacco Use Types Packs/Day [...] Description Date [place] [address] [place] [address] [phone] 02/29/2020 Office Visit Urology documented as of this encounter Procedures Comments Procedure Name Priority Date/Time Associated Diag nosis XR ANKLE LEFT Routine 08/26/2017 2:14 PM NAPPING MACHINE OPERATOR documented in this encounter Results * XR Ankle left (08/26/2017 2:14 PM NAPPING MACHINE OPERATOR) Specimen Performing Organization Address City/State/Zipcode Ph one Number [place] documented in this encounter Visit Diagnoses Not on filedocumented in this encounter Additional Health Concerns Resolved Time Infection Noted Time 04/19/2018 12:13 PM CDT Influenza 08/30/2017 10:13 AM NAPPING MACHINE OPERATOR documented as of this encounter
--- OUTSIDE RECORDS SUMMARY | 2019-11-28 22:26 | XMS REPORT | Encounter Summary ---
Author Author [facility] Organization [facility] Address Unknown Phone Unavailable Care Team Providers Care Can Washer Name Role Phone Ebony Sharp MD PCP Reason for Referral * MRI/CAT/PET Scan (Routine) Referred By Contact Referred To Contact Status Reason Specialty Diagnoses / Procedures Adelaida Olivas MD [address] 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 [address] [place] [address] [phone] Left ankle pain; Ankle joint contracture, left; Pseudarthrosis after fusion or arthrodesis 08/13/2017 [facility] [address] [facility] [place] [address] Social History Date Tobacco Use Types Packs/Day [...] Date End Date Medication Sig Dispensed Refills 02/14/2016 01/14/2028 ipratropium-albuterol Inhale 3 mL 4 360 mL 11 (DUO-NEB) 0.5-3 mg/3 mL (four) times nebulizer a day. OXYGEN THERAPY 2 L/min as 0 needed. 04/08/2017 08/26/2017 amitriptyline (ELAVIL) 25 Take 1 tablet 90 tablet 1 MG tablet (25 mg total) by mouth nightly. 04/08/2017 08/26/2017 amLODIPine (NORVASC) 2.5 Take 2 90 tablet 1 MG tablet tablets (5 mg total) by mouth daily. Take one daily. 07/14/2017 08/26/2017 amLODIPine (NORVASC) 2.5 TAKE 1 TABLET 90 tablet 1 MG tablet BY MOUTH EVERY DAY-- NEED APPOINTMENT FOR REFILLS 04/08/2017 11/25/2017 ASCORBIC ACID, VITAMIN C, TK 1 T PO D 0 500 MG tablet 11/25/2017 BIOTIN ORAL Take 2 0 tablets by mouth daily. 08/05/2017 08/26/2017 BREO ELLIPTA 200-25 INHALE 1 PUFF 60 each 2 mcg/dose INHALER BY MOUTH DAILY 05/27/2017 11/25/2017 celecoxib (CELEBREX) 200 Take 200 mg 0 MG capsule by mouth daily. 04/08/2017 08/26/2017 citalopram (CELEXA) 20 mg Take 1 tablet 90 tablet 1 tablet (20 mg total) by mouth daily. 04/08/2017 08/26/2017 cyclobenzaprine Take 1 tablet 90 tablet 1 (FLEXERIL) 10 MG tablet (10 mg total) by mouth nightly. 04/12/2017 03/08/2019 docusate sodium (COLACE) Take 1 60 capsule 0 100 MG capsule capsule (100 mg total) by mouth 2 (two) times a day as needed for constipation (first line therapy with polyethlene glycol). 04/08/2017 08/26/2017 gabapentin (NEURONTIN) Take 1 270 capsule 1 300 MG capsule capsule (300 mg total) by mouth 3 (three) times a day. 04/12/2017 08/26/2017 insulin glargine (LANTUS) Inject 18 10 mL 0 100 unit/mL injection Units under the skin nightly. When steroid complete - resume taking 15 units rather than 30 04/08/2017 08/26/2017 insulin syringe (BD Inject under 100 each 1 ULTRA-FINE) 0.3 mL 31 the skin gauge x 5/16 daily. use as directed 07/13/2017 08/26/2017 LANTUS 100 unit/mL INJECT 15 10 mL 2 injection UNITS UNDER THE SKIN NIGHTLY. WHEN STEROID COMPLETE- RESUME TAKING 15 UNITS RATHER THAN 30 04/08/2017 08/26/2017 metoprolol tartrate Take 1 tablet 180 tablet 1 (LOPRESSOR) 100 MG tablet (100 mg total) by mouth 2 (two) times a day. 07/07/2017 11/25/2017 NUCYNTA 50 mg tablet Take 50 mg by 0 mouth every 12 (twelve) hours. 04/08/2017 08/26/2017 simvastatin (ZOCOR) 20 MG Take 1 tablet 90 tablet 1 tablet (20 mg total) by mouth nightly. 07/22/2017 08/26/2017 VENTOLIN HFA 90 INHALE 1 PUFF 18 g 2 mcg/actuation HFA inhaler EVERY 4 HOURS NEEDED FOR WHEEZING documented as of this encounter Plan of Treatment Care Team Description [place] [address] [place] [address] [phone] 02/29/2020 Office Visit Urology documented as of this encounter Procedures Comments Procedure Name Priority Date/Time Associated Diag nosis CT ANKLE WO CONTRAST LEFT Routine 08/13/2017 Left ankle pain 2:16 PM MOVIE OPERATOR Ankle joint contracture, 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 documented in this encounter Results * CT Ankle wo contrast left (08/13/2017 2:16 PM MOVIE OPERATOR) Specimen Impressions Performed At 1. Status post revision tibiotalar arthrodesis. No evidence of LEVI hardware-related complication. 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 2. Subcutaneous edema/fluid particula rly along the lateral aspect of the distal calf and ankle. No evidence of localized drainable fluid collection on this noncontrast enhanced study. READING SITE: [facility] Imaging Narrative Performed At Patient: ISIAH BENÍTEZ Sex#: F # [id number] Jose#: [id number] [place] [facility] [place] Procedure Requested: [id number] CT ANKLE WO CONTRAST LEFT Reason for [...] Rad Results In - 08/13/2017 3:18 PM MOVIE OPERATOR Patient: ISIAH BENÍTEZ Sex#: Paulina # [id number] Jose#: [id number] [place] [facility] [place] Procedure Requested: [id number] CT ANKLE WO CONTRAST LEFT Reason for [...] on this noncontrast enhanced study. READING SITE: [facility] Imaging Performing Organization Address City/State/Zipcode Ph one Number [place] documented in this encounter Visit Diagnoses Diagnosis Left ankle pain Pain in joint, ankle and foot Ankle joint contracture, left Pseudarthrosis after fusion or arthrode sis Arthrodesis status documented in this encounter
--- OUTSIDE RECORDS SUMMARY | 2019-11-28 22:26 | XMS REPORT | Encounter Summary ---
Author Author [facility] Organization [facility] Address Unknown Phone Unavailable Care Team Providers Care Structural Welder Name Role Phone Ebony Sharp MD PCP Encounter Details Care Team Description Date Type Department Adelaida Olivas MD [address] [facility] [address] [place] [address] [phone] 08/05/2017 Hist[facility]Other [facility] [address] [place] [address] Social History Date Tobacco Use Types Packs/Day [...] Description Date [place] [address] [place] [address] [phone] 02/29/2020 Office Visit Urology documented as of this encounter Procedures Comments Procedure Name Priority Date/Time Associated Diag nosis XR ANKLE LEFT Routine 08/05/2017 4:11 PM REGISTERED PUBLIC SURVEYOR documented in this encounter Results * XR Ankle left (08/05/2017 4:11 PM REGISTERED PUBLIC SURVEYOR) Specimen Performing Organization Address City/State/Zipcode Ph one Number [place] documented in this encounter Visit Diagnoses Not on filedocumented in this encounter Additional Health Concerns Resolved Time Infection Noted Time 04/19/2018 12:13 PM CDT Influenza 08/30/2017 10:13 AM REGISTERED PUBLIC SURVEYOR documented as of this encounter
--- OUTSIDE RECORDS SUMMARY | 2019-11-28 22:26 | XMS REPORT | Encounter Summary ---
Author Author [facility] Organization [facility] Address Unknown Phone Unavailable Care Team Providers Care Corn Detasseler Machine Operator Name Role Phone Ebony Sharp MD PCP Encounter Details Care Team Description Date Type Department Adelaida Olivas MD [address] [facility] [address] [place], [place] [id number] 08/26/2017 Hist-Transcript [facility] ion Encounter Specialists [address] [facility] [address] [place], [place] [id number] Social History Date Tobacco Use Types Packs/Day [...] Progress Notes * Adelaida Olivas MD - 08/26/2017 2:06 PM CUT PLUG PACKER - History of Present Illness Ms. Patten presents today for evaluation of her left lower extremity. She has obt ained a CT scan of her left ankle. She has been wearing the CTS brace on her lef t ankle. Her gait is better since being in her normal shoe. She does her at home exercises. Her motion is slowly improving. Examination Physical examination reveals a 67-year-old woman whose surgical incision is othe rwise very well healed. There is no overt evidence of delayed wound healing. S he has a nice palpable dorsalis pedis pulse. She is able to invert and gorge he r foot with minimal complaints of pain. She has some tenderness to palpation th at persists throughout the course of her anterior joint line. Impression LEFT ANKLE PAIN ([id number]-Z49.572) CONTRACTURE OF ANKLE JOINT LEFT ([id number]-V20.572) LEFT ANKLE PRIMARY OSTEOARTHRITIS (END07-S94.072) Slowly improving tibiotalar nonunion. Plan At this point, we will plan to allow her to be weightbearing as tolerated. We w ill see her back in three weeks for reevaluation. She will continue to fill her Nucynta at which point we will likely discontinue. We will wean her off. Past Medical History High Blood Pressure Arthritis [...] 1 po q daily VITAMIN D (ERGOCALCIFEROL) 15124 UNIT ORAL CAPSULE (ERGOCALCIFEROL) 1 po q weekl y CELEBREX 200 MG ORAL CAPSULE (CELECOXIB) 1 pill Daily with food NUCYNTA 50 MG ORAL TABLET (TAPENTADOL HCL) One PO Q 4 hours PRN pain SKELAXIN 800 MG ORAL TABLET (METAXALONE) one, po, at bedtime as needed for muscl e spasm Allergies: LISINOPRIL (LISINOPRIL) GLUCOPHAGE (METFORMIN HCL) SULFA (SULFADIAZINE) METFORMIN HCL (METFORMIN HCL) I have reviewed and concur with the medical, social and family histories collect ed and entered on my behalf, on 08/26/2017. -Adelaida Olivas MD, August 26, 2017 2:40 PM Prescriptions: NUCYNTA 50 MG ORAL TABLET (TAPENTADOL HCL) One PO Q 4 hours PRN pain #90 x 0 Entered by: Sharona Scott Authorized by: Adelaida Olivas MD Signed by: Sharona Scott on 08/26/2017 Method used: Print then Give to Patient RxID: [id number] Vital Signs Ht: 62 in. Wt: 236 lbs. T: 97.9 deg F. T site: tympanic BMI: 43.16 She was encourage to talk with their primary care provider about weight manageme nt. Radiographs: Three views, Ap, lateral and mortise radiographic views of the left ankle demons trates no overt evidence of bony subluxation. I would like her to return in 6 weeks and obtain a weight bearing x-ray of their left ankle. Orders from current office visit: Ankle x-ray 3 views PQRS 128a PQRS 47NL PQRS 226NS PQRS 317na PQRS 130na Measure 109 * Signed by Adelaida Olivas MD on August 31, 2017 at 10:03 AM X-Ray Report Three views, Ap, lateral and mortise radiographic views of the left ankle demons trates no overt evidence of bony subluxation. PLUG PACKER documented in this encounter Plan of Treatment Care Team Description Date [place] [address] [place] [address] [phone] 02/29/2020 Office Visit Urology documented as of this encounter Visit Diagnoses Not on filedocumented in this encounter Additional Health Concerns Resolved Time Infection Noted Time 04/19/2018 12:13 PM CDT Influenza 08/30/2017 10:13 AM CUT PLUG PACKER 08/30/2019 1:09 PM CUT PLUG PACKER Influenza - Rule Out 08/30/2019 11:32 AM CUT PLUG PACKER 09/17/2019 8:17 AM CUT PLUG PACKER RSV 08/31/2019 6:35 PM CUT PLUG PACKER documented as of this encounter
--- OUTSIDE RECORDS SUMMARY | 2019-11-28 22:26 | XMS REPORT | Encounter Summary ---
Author Author [facility] Organization [facility] Address Unknown Phone Unavailable Care Team Providers Care Metal Dresser Name Role Phone Ebony Sharp MD PCP Reason for Visit * Reason Comments Other Encounter Details Care Team Description Date Type Department Ebony Sharp MD [address] [facility] [address] [place] [address] [phone] Other 07/10/2017 Refill [facility] y [facility] (walk-in clinic) [address] [facility] [address] [place], [place] [id number] Social History Date Tobacco Use Types Packs/Day [...] Description Date [place] [address] [place] [address] [phone] 02/29/2020 Office Visit Urology documented as of this encounter Visit Diagnoses Not on filedocumented in this encounter
--- OUTSIDE RECORDS SUMMARY | 2019-11-28 22:26 | XMS REPORT | Encounter Summary ---
Author Author [facility] Organization [facility] Address Unknown Phone Unavailable Care Team Providers Care Mainspring Strip Gauger Name Role Phone Ebony Sharp MD PCP Encounter Details Care Team Description Date Type Department Adelaida Olivas MD [address] [facility] [address] [place] [address] 08/02/2017 Hist-Telephone [facility] Specialists [address] [facility] [address] [place] [address] Social History Date Tobacco Use [...] Clinic Note - Adelaida Olivas MD - 08/02/2017 3:10 PM TRAFFIC ENGINEERING TECHNICIAN Phone Note Outgoing Call Call placed by: Edith Bautista on August 02, 2017 3:10 PM Summary of call: patient notified that CT has been approved, order has been fax ed to [facility] gave patient there phone number and mine so if they havent heard from them in two days they can follow up FIC ENGINEERING TECHNICIAN documented in this encounter Plan of Treatment Care Team Description Date [place] [address] [place] [address] [phone] 02/29/2020 Office Visit Urology documented as of this encounter Visit Diagnoses Not on filedocumented in this encounter Additional Health Concerns Resolved Time Infection Noted Time 04/19/2018 12:13 PM CDT Influenza 08/30/2017 10:13 AM TRAFFIC ENGINEERING TECHNICIAN 08/30/2019 1:09 PM TRAFFIC ENGINEERING TECHNICIAN Influenza - Rule Out 08/30/2019 11:32 AM TRAFFIC ENGINEERING TECHNICIAN 09/17/2019 8:17 AM TRAFFIC ENGINEERING TECHNICIAN RSV 08/31/2019 6:35 PM TRAFFIC ENGINEERING TECHNICIAN documented as of this encounter
--- OUTSIDE RECORDS SUMMARY | 2019-11-28 22:26 | XMS REPORT | Encounter Summary ---
Author Author [facility] Organization [facility] Address Unknown Phone Unavailable Care Team Providers Care Traveling Repair Accountant Name Role Phone Ebony Sharp MD PCP Encounter Details Care Team Description Date Type Department Adelaida Olivas MD [address] [facility] [address] [place] [address] 08/04/2017 [facility] [address] [facility] [address] [place], [place] [id number] Social History Date Tobacco Use Types Packs/Day [...] Clinic Note - Adelaida Olivas MD - 08/04/2017 10:04 AM GRIP Phone Note Outgoing Call Call placed by: Lilian Greenwood on August 04, 2017 10:04 AM Summary of call: Patient requesting status of nucynta refill. [phone] Follow-up for Phone Call Follow-up Details: I called and spoke to the patient. I informed her that she mi ssed a follow up visit this morning and could not get a refill until she was see n in the office. She requested to be rescheduled for tomorrow. I offered her a 2 :45 appointment time tomorrow afternoon. She was ok with this. Follow-up by: Rg Lopez on August 04, 2017 1:59 PM documented in this encounter Plan of Treatment Care Team Description [place] [address] [place] [address] [phone] 02/29/2020 Office Visit Urology documented as of this encounter Visit Diagnoses Not on filedocumented in this encounter Additional Health Concerns Resolved Time Infection Noted Time 04/19/2018 12:13 PM CDT Influenza 08/30/2017 10:13 AM GRIP 08/30/2019 1:09 PM GRIP Influenza - Rule Out 08/30/2019 11:32 AM GRIP 09/17/2019 8:17 AM GRIP RSV 08/31/2019 6:35 PM GRIP documented as of this encounter
--- OUTSIDE RECORDS SUMMARY | 2019-11-28 22:26 | XMS REPORT | Encounter Summary ---
Author Author [facility] Organization [facility] Address Unknown Phone Unavailable Care Team Providers Care Computed Tomography Technician Name Role Phone Ebony Sharp MD PCP Reason for Visit * Reason Comments Other Encounter Details Care Team Description Date Type Department Ebony Sharp MD [address] [facility] [address] [place] [address] [phone] Other 08/04/2017 Refill [facility] y [facility] (walk-in clinic) [address] [facility] [address] [place], [place] [phone] Social History Date Tobacco Use Types Packs/Day [...] Description Date [place] [address] [place] [address] [phone] 02/29/2020 Office Visit Urology documented as of this encounter Visit Diagnoses Not on filedocumented in this encounter
--- OUTSIDE RECORDS SUMMARY | 2019-11-28 22:26 | XMS REPORT | Encounter Summary ---
Author Author [facility] Organization [facility] Address Unknown Phone Unavailable Care Team Providers Care Mc Kay Machine Operator Name Role Phone Ebony Sharp MD PCP Reason for Visit * Reason Comments Other Encounter Details Care Team Description Date Type Department Ebony Sharp MD [address] [facility] [address] [place] [address] [phone] Other 07/14/2017 Refill [facility] y [facility] (walk-in clinic) [address] [facility] [address] [place], [place] [id number] Social History Date Tobacco Use Types Packs/Day [...] Description Date [place] [address] [place] [address] [phone] 02/29/2020 Office Visit Urology documented as of this encounter Visit Diagnoses Not on filedocumented in this encounter Additional Health Concerns Resolved Time Infection Noted Time 04/19/2018 12:13 PM CDT Influenza 08/30/2017 10:13 AM TUBING ASSEMBLER 08/30/2019 1:09 PM TUBING ASSEMBLER Influenza - Rule Out 08/30/2019 11:32 AM TUBING ASSEMBLER 09/17/2019 8:17 AM TUBING ASSEMBLER RSV 08/31/2019 6:35 PM TUBING ASSEMBLER documented as of this encounter
--- OUTSIDE RECORDS SUMMARY | 2019-11-28 22:26 | XMS REPORT | Encounter Summary ---
Author Author [facility] Organization [facility] Address Unknown Phone Unavailable Care Team Providers Care Performance Tester Name Role Phone Ebony Sharp MD PCP Encounter Details Care Team Description Date Type Department Adelaida Olivas MD [address] [facility] [address] [place], [place] [address] 08/05/2017 Hist-Transcript [facility] Encounter Specialists [address] [facility] [address] [place], [place] [id number] Social History Date Tobacco Use Types Packs/Day [...] Progress Notes * Adelaida Olivas MD - 08/05/2017 3:26 PM SEAM TAPER MACHINE - History of Present Illness Ms. Patten presents today for evaluation of her left lower extremity. She is post operative on her left lower extremity. She has been weightbearing in the boot. She is obtaining a CT scan today. She states the bone stimulator is not working, the battery has not been charging. Examination Physical examination reveals a pleasant woman whose surgical incisions are other sainz very well healed. There is no overt evidence of delayed wound healing. Sh chirag has a nice palpable dorsalis pedis pulse. Impression CONTRACTURE OF ANKLE JOINT LEFT (BCD65-O99.572) LEFT ANKLE PRIMARY OSTEOARTHRITIS (DDR40-H56.072) DIABETES MELLITUS (CJD35-O87.9) Stable arthrodesis site without any overt evidence of hardware loosening. Plan At this point, we will plan [...] 1 po q daily VITAMIN D (ERGOCALCIFEROL) 75923 UNIT ORAL CAPSULE (ERGOCALCIFEROL) 1 po q weekl y CELEBREX 200 MG ORAL CAPSULE (CELECOXIB) 1 pill Daily with food NUCYNTA 50 MG ORAL TABLET (TAPENTADOL HCL) One PO Q 3-4 hours PRN pain Allergies: LISINOPRIL (LISINOPRIL) GLUCOPHAGE (METFORMIN HCL) SULFA (SULFADIAZINE) METFORMIN HCL (METFORMIN HCL) I have reviewed and concur with the medical, social and family histories collect ed and entered on my behalf, on 08/05/2017. -Adelaida Olivas MD, August 05, 2017 4:22 PM Prescriptions: CYCLOBENZAPRINE HCL 10 MG ORAL TABLET (CYCLOBENZAPRINE HCL) 1 tablet at bedtime #30 x 0 Entered by: Sharona Scott Authorized by: Adelaida Olivas MD Signed by: Sharona Scott on 08/05/2017 Method used: Print then Give to Patient RxID: [id number] NUCYNTA 50 MG ORAL TABLET (TAPENTADOL HCL) One PO Q 3-4 hours PRN pain #60 x 0 Entered by: Sharona Scott Authorized by: Adelaida Olivas MD Signed by: Sharona Scott on 08/05/2017 Method used: Print then Give to Patient RxID: [id number] Vital Signs Ht: 62 in. Wt: 236 lbs. T: 97.6 deg F. T site: tympanic BMI: 43.912100 She was encourage to talk with her primary care provider about weight management . Radiographs: Three views, Ap, lateral and oblique radiographic views of the left ankleordered and obtained in the office today reveal: demonstrates what appears to be stable tibiotalar arthrodesis site. I would like her to return in 3 weeks and obtain a weight bearing x-ray of their left ankle. Orders from current office visit: Ankle x-ray 3 views PQRS 128a PQRS 226NS PQRS 317na PQRS 130 Measure 109 Diabetic pulse exam Diabetic sensory exam * I,Sharona Scott, have scribed the history and exam for, and in the presence of Dr. Adelaida Olivas MD. I Dr. Adelaida Olivas MD have reviewed the scribed history and exam, no changes are required. Signed by Adelaida Olivas MD on August 05, 2017 at 4:19 PM Signed by Adelaida Olivas MD on September 14, 2017 at 10:48 AM X-Ray Report Three views, Ap, lateral and oblique radiographic views of the left ankle ordere d and obtained in the office today reveal: demonstrates what appears to be stabl e tibiotalar arthrodesis site. TAPER MACHINE documented in this encounter Plan of Treatment Care Team Description Date [place] [address] [place] [address] [phone] 02/29/2020 Office Visit Urology documented as of this encounter Visit Diagnoses Not on filedocumented in this encounter Additional Health Concerns Resolved Time Infection Noted Time 04/19/2018 12:13 PM CDT Influenza 08/30/2017 10:13 AM SEAM TAPER MACHINE 08/30/2019 1:09 PM SEAM TAPER MACHINE Influenza - Rule Out 08/30/2019 11:32 AM SEAM TAPER MACHINE 09/17/2019 8:17 AM SEAM TAPER MACHINE RSV 08/31/2019 6:35 PM SEAM TAPER MACHINE documented as of this encounter
--- OUTSIDE RECORDS SUMMARY | 2019-11-28 22:26 | XMS REPORT | Encounter Summary ---
Author Author [facility] Organization [facility] Address Unknown Phone Unavailable Care Team Providers Care Production Technologist Name Role Phone Ebony Sharp MD PCP Encounter Details Care Team Description Date Type Department Adelaida Olivas MD [address] [facility] [address] [place], [place] [id number] 07/14/2017 Hist-Transcript [facility] ion Encounter Specialists [address] [facility] [address] [place], [place] [id number] Social History Date Tobacco Use Types Packs/Day [...] encounter Progress Notes * Juarez Noble - 07/14/2017 11:46 AM JAVA TECHNICAL ARCHITECT - History of Present Illness Mrs. Patten is here for follow up of her left ankle. She is about three months o ut from surgery. She has minimal swelling about her ankle. Her incisions looks good. She has not been using her bone stimulator but will restart using it now. Examination Physical examination reveals a pleasant 66-year-old woman with tenderness to pal pation throughout the anterior aspect of her left ankle. Her skin is intact. T here is no overt evidence delayed wound healing. She has a nice palpable dorsal is pedis pulse. Impression LEFT ANKLE PAIN (XQO46-Y73.572) CONTRACTURE OF ANKLE JOINT LEFT (WLU94-T19.572) PSEUDARTHROSIS AFTER FUSION OR ARTHRODESIS (QMQ50-M48.0) Status post left ankle arthrodesis. Plan At this point, we will plan to allow her to be weightbearing as tolerated in a h igh-tide walking boot. I will see her back in three weeks for reevaluation. We will transition her to Nucynta. Past Medical History High Blood Pressure Arthritis [...] 1 po q daily VITAMIN D (ERGOCALCIFEROL) 45283 UNIT ORAL CAPSULE (ERGOCALCIFEROL) 1 po q [...] ed and entered on my behalf, on 07/14/2017. -Adelaida Olivas MD, July 14, 2017 11:31 AM Prescriptions: CYCLOBENZAPRINE HCL 10 MG ORAL TABLET (CYCLOBENZAPRINE HCL) 1 tablet at bedtime #20 x 0 Entered by: Jennifer Patino Authorized by: Adelaida Olivas MD Signed by: Jennifer Patino on 07/14/2017 Method used: Print then Give to Patient RxID: [id number] NUCYNTA 50 MG ORAL TABLET (TAPENTADOL HCL) One PO Q 3-4 hours PRN pain #60 Unde fined x 0 Entered by: Jennifer Patino Authorized by: Adelaida Olivas MD Signed by: Jennifer Patino on 07/14/2017 Method used: Print then Give to Patient RxID: [id number] Vital Signs Ht: 62 in. Wt: 236 lbs. T: 96.1 deg F. T site: tympanic BMI: 43.32 She was encourage to talk with her primary care provider about weight management . Radiographs: Three views, Ap, lateral and mortise radiographic views of the left ankle demons trates stable ankle configuration status post arthrodesis. I would like her to return in 3 weeks and obtain a x-ray of their left ankle. Orders from current office visit: Ankle x-ray 3 views PQRS 128a PQRS 226NS PQRS 317na PQRS 130na Measure 109 CT Ankle w/o contrast * I,Jennifer Patino, have scribed the history and exam for, and in the presence of Dr. Adelaida Olivas MD. I Dr. Adelaida Olivas MD have reviewed the scribed history and exam, no changes are required. Signed by Adelaida Olivas MD on July 14, 2017 at 11:24 AM Signed by Adelaida Olivas MD on July 20, 2017 at 7:57 AM X-Ray Report Three views, Ap, lateral and mortise radiographic views of the left ankle demons trates stable ankle configuration status post arthrodesis. documented in this encounter Plan of Treatment Care Team Description Date [place] [address] [place] [address] [phone] 02/29/2020 Office Visit Urology documented as of this encounter Visit Diagnoses Not on filedocumented in this encounter Additional Health Concerns Resolved Time Infection Noted Time 04/19/2018 12:13 PM CDT Influenza 08/30/2017 10:13 AM JAVA TECHNICAL ARCHITECT 08/30/2019 1:09 PM JAVA TECHNICAL ARCHITECT Influenza - Rule Out 08/30/2019 11:32 AM JAVA TECHNICAL ARCHITECT 09/17/2019 8:17 AM JAVA TECHNICAL ARCHITECT RSV 08/31/2019 6:35 PM JAVA TECHNICAL ARCHITECT documented as of this encounter
--- OUTSIDE RECORDS SUMMARY | 2019-11-28 22:26 | XMS REPORT | Encounter Summary ---
Author Author [facility] Organization [facility] Address Unknown Phone Unavailable Care Team Providers Care Coconut Cooker Name Role Phone Ebony Sharp MD PCP Reason for Visit * Reason Comments Follow-up eldon l ankle/tlm [id number]: Appt. Reminder (08/24/2017 06:21 PM) Phone Call - Message Delivered (X=Answering Carlin e) Encounter Details Care Team Description Date Type Department Adelaida Olivas MD [address] [facility] [address] [place] [address] [phone] 08/26/2017 Hist-Appointmen [facility] Specialists [address] [facility] [address] [place] [address] Social History Date Tobacco Use Types Packs/Day [...] Description Date [place] [address] [place] [address] [phone] 02/29/2020 Office Visit Urology documented as of this encounter Visit Diagnoses Not on filedocumented in this encounter Additional Health Concerns Resolved Time Infection Noted Time 04/19/2018 12:13 PM CDT Influenza 08/30/2017 10:13 AM AGRICULTURIST documented as of this encounter
--- OUTSIDE RECORDS SUMMARY | 2019-11-28 22:26 | XMS REPORT | Encounter Summary ---
Author Author [facility] Organization [facility] Address Unknown Phone Unavailable Care Team Providers Care Bmw Service Technician Name Role Phone Ebony Sharp MD PCP Encounter Details Care Team Description Date Type Department Ebony Sharp MD [address] [facility] [address] [place] [address] [phone] 07/22/2017 Documentation [facility] (walk-in clinic) [address] [facility] [address] [place], [place] [id number] Social History Date Tobacco Use Types Packs/Day [...] Description Date [place] [address] [place] [address] [phone] 02/29/2020 Office Visit Urology documented as of this encounter Visit Diagnoses Not on filedocumented in this encounter
--- OUTSIDE RECORDS SUMMARY | 2019-11-28 22:26 | XMS REPORT | Encounter Summary ---
Author Author [facility] Organization [facility] Address Unknown Phone Unavailable Care Team Providers Care Oil Sales And Service Rep Name Role Phone Ebony Sharp MD PCP Reason for Visit * Reason Comments Other Encounter Details Care Team Description Date Type Department Ebony Sharp MD [address] [facility] [address] [place] [address] [phone] Other 07/22/2017 Refill [facility] (walk-in clinic) [address] [facility] [address] [place], [place] [address] Social History Date Tobacco Use Types Packs/Day [...] Description Date [place] [address] [place] [address] [phone] 02/29/2020 Office Visit Urology documented as of this encounter Visit Diagnoses Not on filedocumented in this encounter
--- OUTSIDE RECORDS SUMMARY | 2019-11-28 22:26 | XMS REPORT | Encounter Summary ---
Author Author [facility] Organization [facility] Address Unknown Phone Unavailable Care Team Providers Care Advertising Internship Name Role Phone Ebony Sharp MD PCP Encounter Details Care Team Description Date Type Department Adelaida Olivas MD [address] [facility] [address] [place] [address] [phone] 07/14/2017 Hist-Other [facility] [address] [place] [address] Social History Date Tobacco Use Types Packs/Day [...] Description Date [place] [address] [place] [address] [phone] 02/29/2020 Office Visit Urology documented as of this encounter Procedures Comments Procedure Name Priority Date/Time Associated Diag nosis XR ANKLE Routine 07/14/2017 11:15 AM COST ACCOUNTING CLERK documented in this encounter Results * XR Ankle (07/14/2017 11:15 AM COST ACCOUNTING CLERK) Specimen Performing Organization Address City/State/Zipcode Ph one Number [place] documented in this encounter Visit Diagnoses Not on filedocumented in this encounter Additional Health Concerns Resolved Time Infection Noted Time 04/19/2018 12:13 PM CDT Influenza 08/30/2017 10:13 AM COST ACCOUNTING CLERK documented as of this encounter
--- OUTSIDE RECORDS SUMMARY | 2019-11-28 22:27 | XMS REPORT | Encounter Summary ---
Author Author [facility] Organization [facility] Address Unknown Phone Unavailable Care Team Providers Care Gear Hobber Operator Name Role Phone Ebony Sharp MD PCP Encounter Details Care Team Description Date Type Department Adelaida Olivas MD [address] [facility] [address] [place] [address] [phone] 05/13/2017 Hist-Other [facility] [address] [place] [address] Social History Date Tobacco Use Types Packs/Day [...] Description Date [place] [address] [place] [address] [phone] 02/29/2020 Office Visit Urology documented as of this encounter Procedures Comments Procedure Name Priority Date/Time Associated Diag nosis XR ANKLE Routine 05/13/2017 2:57 PM CDT documented in this encounter Results * XR Ankle (05/13/2017 2:57 PM CDT) Specimen Performing Organization Address City/State/Zipcode Ph one Number [place] documented in this encounter Visit Diagnoses Not on filedocumented in this encounter Additional Health Concerns Resolved Time Infection Noted Time 04/19/2018 12:13 PM CDT Influenza 08/30/2017 10:13 AM MIXER DRIVER documented as of this encounter
--- OUTSIDE RECORDS SUMMARY | 2019-11-28 22:27 | XMS REPORT | Encounter Summary ---
Author Author [facility] Organization [facility] Address Unknown Phone Unavailable Care Team Providers Care Supervisor Tank Cleaning Name Role Phone Ebony Sharp MD PCP Reason for Visit * Reason Comments Medication Refill Encounter Details Care Team Description Date Type Department Jani Schultz LPN Medication Refill 06/24/2017 Refill [facility] (walk-in clinic) [address] [facility] [address] [place], [place] [id number] Social History Date Tobacco Use Types Packs/Day [...] encounter Miscellaneous Notes * Telephone Encounter - Jani Schultz LPN - 06/24/2017 1:04 PM CDT APPT 07/09/17 documented in this encounter Plan of Treatment Care Team Description [place] [address] [place] [address] [phone] 02/29/2020 Office Visit Urology documented as of this encounter Visit Diagnoses Not on filedocumented in this encounter
--- OUTSIDE RECORDS SUMMARY | 2019-11-28 22:27 | XMS REPORT | Encounter Summary ---
Author Author [facility] Organization [facility] Address Unknown Phone Unavailable Care Team Providers Care Director Food Safety Name Role Phone Ebony Sharp MD PCP Encounter Details Care Team Description Date Type Department Adelaida Olivas MD [address] [facility] [address] [place] [address] 06/25/2017 [facility] [address] [facility] [address] [place] [address] Social History Date Tobacco Use [...] Clinic Note - Adelaida Olivas MD - 06/25/2017 3:26 PM CDT Phone Note Call from Patient Caller: Patient Summary of call: Patient is calling to see if Dr. Olivas can get a prior authoriz ation for Nucynta. Please call patient back at [phone] Call taken by: Daphne Roa on June 25, 2017 3:26 PM Follow-up for Phone Call Follow-up Details: Received prior authorization request from Felisha ([phone]) for Nucynta. Submitted on [employer]. Called patient and let her know we got this started and will let her know once w e have a determination. Follow-up by: Alec Jimenez on June 25, 2017 4:17 PM Additional Follow-up for Phone Call Additional Follow-up Details: Received approval from insurance for this medicati on. Called pharmacy and the patient already picked up the medication. Additional Follow-up by: Alec Jimenez on June 28, 2017 9:15 AM ESS WORKER documented in this encounter Plan of Treatment Care Team Description Date [place] [address] [place] [address] [phone] 02/29/2020 Office Visit Urology documented as of this encounter Visit Diagnoses Not on filedocumented in this encounter Additional Health Concerns Resolved Time Infection Noted Time 04/19/2018 12:13 PM CDT Influenza 08/30/2017 10:13 AM PROCESS WORKER 08/30/2019 1:09 PM PROCESS WORKER Influenza - Rule Out 08/30/2019 11:32 AM PROCESS WORKER 09/17/2019 8:17 AM PROCESS WORKER RSV 08/31/2019 6:35 PM PROCESS WORKER documented as of this encounter
--- OUTSIDE RECORDS SUMMARY | 2019-11-28 22:27 | XMS REPORT | Encounter Summary ---
Author Author [facility] Organization [facility] Address Unknown Phone Unavailable Care Team Providers Care Street Light Cleaner Name Role Phone Ebony Sharp MD PCP Encounter Details Care Team Description Date Type Department Adelaida Olivas MD [address] [facility] [address] [place], [place] [id number] 05/27/2017 Hist-Transcript Aide Orthopaedi c ion Encounter Specialists [address] [facility] [address] [place], [place] [address] Social History Date Tobacco Use Types Packs/Day [...] of this encounter Progress Notes * Juarez oNble - 05/27/2017 3:53 PM CDT - History of Present Illness Ms. Patten is here for follow up of her left ankle. She is a little over seven w eeks out postop. She states she is ready to be out of the cast. She has been t aking Oxycodone for pain and wants a refill as well as an anti-inflammatory medi cation. Examination Physical examination reveals a 66-year-old woman whose surgical incisions are ot herwise very well healed. There is no overt evidence of delayed wound healing. She is able to plantar flex, dorsiflex, invert, and gorge her foot without any specific complaints. Impression CONTRACTURE OF ANKLE JOINT LEFT ([id number]) NONUNION FRACTURE (WHN96-Q81.8) Status post tibiotalar arthrodesis, currently doing well. Plan At this point, we will plan to allow her to be weightbearing as tolerated. We w ill see her back in three weeks for reevaluation. Past Medical History High Blood Pressure Arthritis Osteoporosis COPD / Emphysema Diabetes Surgical History Surgical history includes Appendectomy Tonsillectomy Section(1) Gallrm dder(laparoscopic) D & C(single) Hysterectomy(complete) Total Knee [...] Disabled Medication list: ALBUTEROL SULFATE 1.25 MG/3ML NEBU (ALBUTEROL SULFATE) as directed PROAIR HFA 108 (90 BASE) MCG/ACT AERS (ALBUTEROL SULFATE) as directed AMITRIPTYLINE HCL 25 MG TABS (AMITRIPTYLINE HCL) as directed AMLODIPINE BESYLATE 2.5 MG TABS (AMLODIPINE BESYLATE) as directed ASPIRIN ADULT LOW DOSE 81 MG TBEC (ASPIRIN) 1 po daily CELEXA 20 MG TABS (CITALOPRAM HYDROBROMIDE) as directed BREO ELLIPTA 200-25 MCG/INH AEPB (FLUTICASONE FUROATE-VILANTEROL) as directed GABAPENTIN 300 MG CAPS (GABAPENTIN) as directed IPRATROPIUM-ALBUTEROL 0.5-2.5 (3) MG/3ML SOLN (IPRATROPIUM-ALBUTEROL) as directe d LANTUS 100 UNIT/ML SOLN (INSULIN GLARGINE) as directed METOPROLOL TARTRATE 100 MG TABS (METOPROLOL TARTRATE) as directed SIMVASTATIN 20 MG TABS (SIMVASTATIN) as directed CYCLOBENZAPRINE HCL 10 MG TABS (CYCLOBENZAPRINE HCL) 1 tablet at bedtime LIDOCAINE HCL 3 % CREA (LIDOCAINE HCL) apply to right knee q8 prn pain MS CONTIN 15 MG CR-TABS (MORPHINE SULFATE) Take 1 tablet every 12 hours as neede d for pain NOVOLOG 100 UNIT/ML SOLN (INSULIN ASPART) PREDNISONE 20 MG TABS (PREDNISONE) DOXYCYCLINE HYCLATE 100 MG TABS (DOXYCYCLINE HYCLATE) COLACE 100 MG CAPS (DOCUSATE SODIUM) 1 tab po BID METOCLOPRAMIDE HCL 10 MG TABS (METOCLOPRAMIDE HCL) 1 po q 6 hours prn nausea ASPIRIN EC 325 MG TBEC (ASPIRIN) 1 tab po daily NEURONTIN 100 MG CAPS (GABAPENTIN) 1 po qhs NARCAN 4 MG/0.1ML LIQD (NALOXONE HCL) One spray in one nostril. After 2-3 minut es, if breathing does not return to normal, give an additional dose using a new device in the alternate nostril. OXYCODONE HCL 5 MG TABS (OXYCODONE HCL) 1 po q 4 hours prn pain TYLENOL EXTRA STRENGTH 500 MG TABS (ACETAMINOPHEN) 2 tabs po q 8 hours VITAMIN C 500 MG TABS (ASCORBIC ACID) 1 po q daily VITAMIN D (ERGOCALCIFEROL) 13524 UNIT CAPS (ERGOCALCIFEROL) 1 po q weekly OXYCONTIN 10 MG T12A (OXYCODONE HCL) 1 tablet PO BID PRN OXYCODONE HCL 10 MG TABS (OXYCODONE HCL) one PO Q 6 hours prn pain BACTRIM DS 800-160 MG TABS (SULFAMETHOXAZOLE-TRIMETHOPRIM) 1 tab q 12 hours MS CONTIN 15 MG CR-TABS (MORPHINE SULFATE) Take 1 tablet every 12 hours as neede d for pain OXYCONTIN 10 MG T12A (OXYCODONE HCL) 1 tablet PO BID PRN CELEBREX 200 MG CAPS (CELECOXIB) 1 pill Daily with food Allergies: LISINOPRIL (LISINOPRIL) GLUCOPHAGE (METFORMIN HCL) SULFA (SULFADIAZINE) I have reviewed and concur with the medical, social and family histories collect ed and entered on my behalf, on 05/27/2017. -Adelaida Olivas MD, May 27, 2017 3:37 PM Prescriptions: OXYCODONE HCL 5 MG TABS (OXYCODONE HCL) 1 po q 4 hours prn pain #60 x 0 Entered by: Jennifer Patino Authorized by: Adelaida Olivas MD Signed by: Jennifer Patino on 05/27/2017 Method used: Print then Give to Patient RxID: [id number] CELEBREX 200 MG CAPS (CELECOXIB) 1 pill Daily with food #30[Unspecified] x 0 Entered by: Jennifer Patino Authorized by: Adelaida Olivas MD Signed by: Jennifer Patino on 05/27/2017 Method used: Electronically to [facility]* (retail) [address] [place] [address] Ph: [phone] Fax: [phone] RxID: [id number] Vital Signs Ht: 62 in. Wt: 236 lbs. T: 97.8 deg F. T site: tympanic BMI: 43.32 She was encourage to talk with her primary care provider about weight management . Radiographs: Three views, Ap, lateral and mortise radiographic views of the left foot, as wel l as, Two views, ap and lateral radiographic views of the left ankle demonstrates wha t appears to be healing tibiotalar arthrodesis. I would like her to return in 3 weeks and obtain a non-weight bearing x-ray of t heir left ankle. Orders from current office visit: Ankle x-ray 2 views Foot x-ray 3+ views Walking Boot pneumatic PQRS 128a PQRS 226NS PQRS 317na PQRS 130 Measure 109 * I,Jennifer Patino, have scribed the history and exam for, and in the presence of Dr. Adelaida Olivas MD. I Dr. Adelaida Olivas MD have reviewed the scribed history and exam, no changes are required. Signed by Adelaida Olivas MD on May 27, 2017 at 3:32 PM Signed by Adelaida Olivas MD on June 01, 2017 at 1:57 PM X-Ray Report Three views, Ap, lateral and mortise radiographic views of the left foot, as wel l as, Two views, ap and lateral radiographic views of the left ankle demonstrat es what appears to be healing tibiotalar arthrodesis. documented in this encounter Plan of Treatment Care Team Description Date [place] [address] [place] [address] [phone] 02/29/2020 Office Visit Urology documented as of this encounter Visit Diagnoses Not on filedocumented in this encounter Additional Health Concerns Resolved Time Infection Noted Time 04/19/2018 12:13 PM CDT Influenza 08/30/2017 10:13 AM ECHOCARDIOGRAPHY TECHNOLOGIST 08/30/2019 1:09 PM ECHOCARDIOGRAPHY TECHNOLOGIST Influenza - Rule Out 08/30/2019 11:32 AM ECHOCARDIOGRAPHY TECHNOLOGIST 09/17/2019 8:17 AM ECHOCARDIOGRAPHY TECHNOLOGIST RSV 08/31/2019 6:35 PM ECHOCARDIOGRAPHY TECHNOLOGIST documented as of this encounter
--- OUTSIDE RECORDS SUMMARY | 2019-11-28 22:27 | XMS REPORT | Encounter Summary ---
Author Author [facility] Organization [facility] Address Unknown Phone Unavailable Care Team Providers Care Sulfur Chloride Operator Name Role Phone Ebony Sharp MD PCP Encounter Details Care Team Description Date Type Department Adelaida Olivas MD [address] [facility] [address] [place], [place] [id number] 06/16/2017 Hist-Transcript Aide Orthopaedi c ion Encounter Specialists [address] [facility] [address] [place], [place] [id number] Social History Date Tobacco Use Types Packs/Day [...] encounter Progress Notes * Juarez Noble - 06/16/2017 12:30 PM CDT - History of Present Illness Mrs Patten is here for follow up of her left ankle. She is about 10 weeks out fr om surgery. She states she is making good progress. She complains of some cram ping on the back of her thigh. Examination Physical examination reveals a 66-year-old woman who is able to flex and extend her midfoot with minimal complaints of pain. Her skin is otherwise intact. Her surgical incision is otherwise very well healed. She has some slight pain with calf squeeze. Impression LEFT ANKLE PAIN (QZO71-J38.572) NONUNION FRACTURE (VCY95-K37.8) NONUNION FRACTURE (OZZ46-G01.8) Status post ankle revision, doing reasonably well with calf pain. Plan At this point, we did discuss obtaining an ultrasound. I will see her back in t hree weeks for reevaluation. Past Medical History High [...] TABLET (CYCLOBENZAPRINE HCL) 1 tablet at bedtime OXYCODONE HCL 5 MG ORAL TABLET (OXYCODONE HCL) 1 po q 8 hours not to exceed 3 pe r day VITAMIN C 500 MG ORAL TABLET (ASCORBIC ACID) 1 po q daily VITAMIN D (ERGOCALCIFEROL) 65157 UNIT ORAL CAPSULE (ERGOCALCIFEROL) 1 po q weekl y CELEBREX 200 MG ORAL CAPSULE (CELECOXIB) 1 pill Daily with food PERCOCET 7.5-325 MG TABS (OXYCODONE-ACETAMINOPHEN) 1-2 PO Q 4-6 Hours PRN Pain CYCLOBENZAPRINE HCL 10 MG ORAL TABLET (CYCLOBENZAPRINE HCL) 1 tablet at bedtime Allergies: LISINOPRIL (LISINOPRIL) GLUCOPHAGE (METFORMIN HCL) SULFA (SULFADIAZINE) METFORMIN HCL (METFORMIN HCL) I have reviewed and concur with the medical, social and family histories collect ed and entered on my behalf, on 06/16/2017. -Adelaida Olivas MD, June 16, 2017 12:00 PM Prescriptions: CYCLOBENZAPRINE HCL 10 MG ORAL TABLET (CYCLOBENZAPRINE HCL) 1 tablet at bedtime #30[Unspecified] x 0 Entered by: Alice Mello Authorized by: Adelaida Olivas MD Signed by: Alice Mello on 06/16/2017 Method used: [facility] to [facility] (retail[facility] [address] [place] [address] Ph: [phone] Fax: [phone] RxID: [id number] PERCOCET 7.5-325 MG TABS (OXYCODONE-ACETAMINOPHEN) 1-2 PO Q 4-6 Hours PRN Pain #40 x 0 Entered by: Alice Mello Authorized by: Adelaida Olivas MD Signed by: Alice Mello on 06/16/2017 Method used: Print then Give to Patient RxID: [id number] Vital Signs Ht: 62 in. Wt: 236 lbs. T: 96.3 deg F. T site: tympanic BMI: 43.32 She was encourage to talk with her primary care provider about weight management . Radiographs: X-ray examination, AP, lateral, and oblique of the left ankle does not demonstra te any overt evidence of nonunion. I would like her to return in 4 weeks and obtain a x-ray of their left ankle. Orders from current office visit: Ankle x-ray 3 views PQRS 128a PQRS 226NS PQRS 317na PQRS 130 Measure 109 US Doppler study of extremity veins * I,Jennifer Patino, have scribed the history and exam for, and in the presence of Dr. Adelaida Olivas MD. I Dr. Adelaida Olivas MD have reviewed the scribed history and exam, no changes are required. Signed by Adelaida Olivas MD on June 16, 2017 at 11:56 AM Signed by Adelaida Olivas MD on June 18, 2017 at 1:37 PM X-Ray Report X-ray examination, AP, lateral, and oblique of the left ankle does not demonstra te any overt evidence of nonunion. documented in this encounter Plan of Treatment Care Team Description Date [place] [address] [address] [phone] 02/29/2020 Office Visit Urology documented as of this encounter Visit Diagnoses Not on filedocumented in this encounter Additional Health Concerns Resolved Time Infection Noted Time 04/19/2018 12:13 PM CDT Influenza 08/30/2017 10:13 AM BUCK SWAMPER 08/30/2019 1:09 PM BUCK SWAMPER Influenza - Rule Out 08/30/2019 11:32 AM BUCK SWAMPER 09/17/2019 8:17 AM BUCK SWAMPER RSV 08/31/2019 6:35 PM BUCK SWAMPER documented as of this encounter
--- OUTSIDE RECORDS SUMMARY | 2019-11-28 22:27 | XMS REPORT | Encounter Summary ---
Author Author [facility] Organization [facility] Address Unknown Phone Unavailable Care Team Providers Care Credit Administration Officer Name Role Phone Ebony Sharp MD PCP Encounter Details Care Team Description Date Type Department Adelaida Olivas MD [address] [facility] [address] [place] [address] [phone] 05/27/2017 Hist-Other [facility] [address] [place] [address] Social History Date Tobacco Use Types Packs/Day [...] Description Date [place] [address] [place] [address] [phone] 02/29/2020 Office Visit Urology documented as of this encounter Procedures Comments Procedure Name Priority Date/Time Associated Diag nosis XR ANKLE LEFT Routine 05/27/2017 3:51 PM CDT documented in this encounter Results * XR Ankle left (05/27/2017 3:51 PM CDT) Specimen Performing Organization Address City/State/Zipcode Ph one Number [place] documented in this encounter Visit Diagnoses Not on filedocumented in this encounter Additional Health Concerns Resolved Time Infection Noted Time 04/19/2018 12:13 PM CDT Influenza 08/30/2017 10:13 AM INFORMATICS SPECIALIST documented as of this encounter
--- OUTSIDE RECORDS SUMMARY | 2019-11-28 22:27 | XMS REPORT | Encounter Summary ---
Author Author [facility] Organization [facility] Address Unknown Phone Unavailable Care Team Providers Care Anodize Machine Operator Name Role Phone Ebony Sharp MD PCP Reason for Visit * Reason Comments Other Encounter Details Care Team Description Date Type Department Ebony Sharp MD [address] [facility] [address] [place] [address] [phone] Other 06/25/2017 Refill [facility] (walk-in clinic) [address] [facility] [address] [place], [place] [id number] Social History Date Tobacco Use Types Packs/Day [...] Description Date [place] [address] [place] [address] [phone] 02/29/2020 Office Visit Urology documented as of this encounter Visit Diagnoses Not on filedocumented in this encounter Additional Health Concerns Resolved Time Infection Noted Time 04/19/2018 12:13 PM CDT Influenza 08/30/2017 10:13 AM MUD TEMPERER 08/30/2019 1:09 PM MUD TEMPERER Influenza - Rule Out 08/30/2019 11:32 AM MUD TEMPERER 09/17/2019 8:17 AM MUD TEMPERER RSV 08/31/2019 6:35 PM MUD TEMPERER documented as of this encounter
--- OUTSIDE RECORDS SUMMARY | 2019-11-28 22:27 | XMS REPORT | Encounter Summary ---
Author Author [facility] Organization [facility] Address Unknown Phone Unavailable Care Team Providers Care Cinema Operator Name Role Phone Ebony Sharp MD PCP Reason for Visit * Reason Comments Follow-up 3 month FU Encounter Details Care Team Description Date Type Department Ebony Sharp MD [address] [facility] [address] [place] [address] Type 2 diabetes mellitus with hyperglyce prasanna, 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) (Primary Dx); COPD exacerbation (HCC); SASHA (obstructive sleep apnea); Benign essential HTN; Hyperlipidemia, unspecified hyperlipidemia type; Routine adult health maintenance 07/09/2017 Office Visit [facility] (walk-in clinic) [address] [facility] [address] [place] [address] Social History Date Tobacco Use [...] Signs Reading Time Taken Comments Vital Sign 136/84 07/09/2017 12:16 PM BERRY PICKER MACHINE OPERATOR Blood Pressure 74 07/09/2017 12:16 PM BERRY PICKER MACHINE OPERATOR Pulse - - Temperature - - Respiratory Rate 95% 07/09/2017 12:16 PM BERRY PICKER MACHINE OPERATOR Oxygen Saturation - - Inhaled Oxygen Concentration 93.9 kg (207 lb) 07/09/2017 12:16 PM BERRY PICKER MACHINE OPERATOR Weight 157.5 cm (5' 2") 07/09/2017 12:16 PM BERRY PICKER MACHINE OPERATOR Height 37.86 07/09/2017 12:16 PM BERRY PICKER MACHINE OPERATOR Body Mass Index documented in this encounter Progress Notes * Ebony Sharp MD - 07/09/2017 11:30 AM BERRY PICKER MACHINE OPERATOR CC: Follow-up (3 month FU ) HPI : Caren Patten is a 66 y.o. female who presents with complaints of Follow-up (3 month FU ) 1. Surgery clearance - she is going to have bariatric surgery at [facility] in August. She is excited about it. She has already started losing weight al ready. She had normal stress test in 01/2016. She does require O2 with a lot of activity and this started after her left ankle surgery in March. She will need to have her blood sugars, blood pressures, O2 closely monitored with surgery, however, with a normal stress test and 0 calcium score, I do think that she is l ow-intermediate risk for the intermediate-high risk surgery. Also need to keep in mind her temple - [employer] - she will not be able to take blood prod ucts. 2. HLD - taking statin 3. HTN - controlled 4. DM2 - Last a1c was 8.1 5. COPD - stable. She has to use O2 every so often. She had her O2 drop while hospitalized and she was discharged with O2. She uses it with cpap and when she feels like she needs it. 6. SASHA - still using cpap with O2 on it at 2L. 7. Wt loss of 17 lbs since last here. 8. Left ankle surgery -she had the screws removed and is doing better ALLERGIES: Allergies Allergen Reactions Lisinopril Anaphylaxis Metformin Anaphylaxis Sulfa (Sulfonamide Antibiotics) Hives CURRENT MEDICATIONS: Current Outpatient Prescriptions Medication Sig Dispense Refill albuterol (PROAIR HFA) 90 mcg/actuation HFA inhaler Inhale 1 puff every 4 (f our) hours as needed for wheezing. 18 g 0 amitriptyline (ELAVIL) 25 MG tablet Take 1 tablet (25 mg total) by mouth nig htly. 90 tablet 1 amLODIPine (NORVASC) 2.5 MG tablet Take 2 tablets (5 mg total) by mouth eve y. Take one daily. 90 tablet 1 BIOTIN ORAL Take 2 tablets by mouth daily. celecoxib (CELEBREX) 200 MG capsule citalopram (CELEXA) 20 mg tablet Take 1 tablet (20 mg total) by mouth daily. 90 tablet 1 cyclobenzaprine (FLEXERIL) 10 MG tablet Take 1 tablet (10 mg total) by mouth nightly. 90 tablet 1 docusate sodium (COLACE) 100 MG capsule Take 1 capsule (100 mg total) by tanna 2 (two) times a day as needed for constipation (first line therapy with polye thlene glycol). 60 capsule 0 fluticasone-vilanterol (BREO ELLIPTA) 200-25 mcg/actuation INHALER Inhale 1 puff daily. 60 each 3 gabapentin (NEURONTIN) 300 MG capsule Take 1 capsule (300 mg total) by mouth 3 (three) times a day. 270 capsule 1 insulin glargine (LANTUS) 100 unit/mL injection Inject 18 Units under the sk in nightly. When steroid complete - resume taking 15 units rather than 30 10 mL 0 insulin syringe (BD ULTRA-FINE) 0.3 mL 31 gauge x 5/16 Inject under the skin daily. use as directed 100 each 1 ipratropium-albuterol (DUO-NEB) 0.5-3 mg/3 [...] by mouth nightl y. 90 tablet 1 ASCORBIC ACID, VITAMIN C, 500 MG tablet TK 1 T PO D 0 ergocalciferol (ERGOCALCIFEROL) 50,000 unit capsule TK 1 C PO WEEKLY 0 NUCYNTA 50 mg tablet Take 50 mg by mouth every 12 (twelve) hours. No current facility-administered medications for this visit. LAB SUMMARY: Lab Results Component Value Date WBC 10.17 05/10/2017 HGB 11.5 (L) 05/10/2017 HCT 36 05/10/2017 PLT 152 05/10/2017 CHOL 193 04/08/2017 TRIG 182 (H) 04/08/2017 HDL 54 04/08/2017 ALT 28 05/10/2017 AST 22 05/10/2017 NA 140 05/10/2017 K 4.0 05/10/2017 CL 102 05/10/2017 BUN 15 05/10/2017 CO2 29 05/10/2017 TSH 0.35 (L) 04/08/2017 INR 1.0 03/29/2017 HGBA1C 8.1 (H) 04/08/2017 MICROALBUR 10.40 04/08/2017 SOCIAL HISTORY: Social History Social History Marital status: Single Spouse name: N/A Number of children: N/A [...] Exam 1952 Diabetes Mellitus Foot Exam 1962 Td # 1966 Zoster Vaccine # (1) 2012 Mammogram Screening 01/05/2013 Influenza Vaccine (1) 04/23/2017 Diabetes Mellitus Hemoglobin A1C 10/09/2017 Medicare Annual Wellness 04/08/2018 Diabetes Mellitus Urine Microalbumin 04/08/2018 Colorectal Screening via Colonoscopy 12/24/2019 Pneumococcal Immunization 19-64 Low/Medium Risk# Completed Immunization History Administered Date(s) Administered Influenza QIV (IM) 05/09/2016 Pneumococcal Polysaccharide 23-Valent 05/09/2016 Review of Systems Respiratory: Positive for cough and shortness of breath. All other systems reviewed and are negative. OBJECTIVE Vitals: 07/09/17 1216 BP: 136/84 BP Location: Left arm Pulse: 74 SpO2: 95% Weight: 93.9 kg (207 lb) Height: 1.575 m (5' 2") Estimated body mass index is 37.86 kg/m as calculated from the following: Height as of this encounter: 1.575 m (5' 2"). Weight as of this encounter: 93.9 kg (207 lb). Physical Exam Constitutional: She appears well-developed and well-nourished. HENT: Head: Normocephalic and atraumatic. Cardiovascular: Normal rate, regular rhythm and normal heart sounds. Pulmonary/Chest: Effort normal and breath sounds normal. Musculoskeletal: She exhibits deformity (left foot is in a boot). Neurological: She is alert. No sensory deficit. Skin: Skin is warm and dry. Psychiatric: She has a normal mood and affect. Her behavior is normal. Nursing note and vitals reviewed. ASSESSMENT/PLAN: Caren was seen today for follow-up. Diagnoses and all orders for this visit: Type 2 diabetes mellitus with hyperglycemia, with long-term current use of insul in (HCC) - Hemoglobin A1C; Future COPD exacerbation (HCC) SASHA (obstructive sleep apnea) Benign essential HTN Hyperlipidemia, unspecified hyperlipidemia type Routine adult health maintenance - Flu Vaccine Greater than or equal to 3YO Preservative free Quadrivalent IM 1. DM2 - she needs to have another a1c 2-5. HLD, HTN, SASHA, COPD - all stable. 3. HM - discussed surgery (see above). Give her flu shot right now. Surgical clearance - she is going to have bariatric surgery at [facility] august. She will need to have her blood sugars, blood pressures, O2 closely monitored with surgery, however, with a normal stress test and 0 calcium score, I do think that she is low-intermediate risk for the intermediate-high risk surg patti. Also need to keep in mind her temple - [employer] - she will not be able to take blood products. Ebony Sharp MD Y PICKER MACHINE OPERATOR documented in this encounter Plan of Treatment Care Team Description Date [place] [address] [place] [address] [phone] 02/29/2020 Office Visit Urology documented as of this encounter Results * Hemoglobin A1C (07/09/2017 12:57 PM BERRY PICKER MACHINE OPERATOR) Hemoglobin A1C 7.5 (H) 4.0 - 5.6 % [facility] Comment: REGIONAL Non-diabetic 4.0 - LABORATORIES 5.6 % Prediabetes 5.7 - 6.4 % Diabetes >= 6.5 % Specimen Blood Performing Organization Address City/State/Zipcode Ph one Number [address] [address] LABORATORIES documented in this encounter Visit Diagnoses Diagnosis Type 2 diabetes mellitus with hyperglyc emia, 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) COPD exacerbation (HCC) Obstructive chronic bronchitis with exa cerbation SASHA (obstructive sleep apnea) Obstructive sleep apnea (adult) (pediat amita) Benign essential HTN Hyperlipidemia, unspecified hyperlipide prasanna type Routine adult health maintenance documented in this encounter
--- OUTSIDE RECORDS SUMMARY | 2019-11-28 22:27 | XMS REPORT | Encounter Summary ---
Author Author [facility] Organization [facility] Address Unknown Phone Unavailable Care Team Providers Care Hair Spring Cutter Name Role Phone Ebony Sharp MD PCP Encounter Details Care Team Description Date Type Department Adelaida Olivas MD [address] [facility] [address] [place] [address] [facility]/24/2017 [facility] [address] [facility] [address] [place], [place] [id number] Social History Date Tobacco Use Types Packs/Day [...] Clinic Note - Adelaida Olivas MD - 06/24/2017 1:49 PM CDT Phone Note Call from Patient Summary of call: Patient called stating she wanted a refill of her Oxycodone 7.[address] Olivas said she'd get #90, but only got #40. She is now out. Ple ase call patient back at [phone]. Call taken by: Aline Joy on June 24, 2017 1:50 PM Follow-up for Phone Call Follow-up Details: I spoke with the patient and she will shredder picker her Nucynta scr ipt. Follow-up by: Kari Young on June 24, 2017 3:24 PM documented in this encounter Plan of Treatment Care Team Description Date [place] [address] [address] [phone] 02/29/2020 Office Visit Urology documented as of this encounter Visit Diagnoses Not on filedocumented in this encounter Additional Health Concerns Resolved Time Infection Noted Time 04/19/2018 12:13 PM CDT Influenza 08/30/2017 10:13 AM SENIOR OFFICE SUPPORT ASSISTANT SOSA 08/30/2019 1:09 PM SENIOR OFFICE SUPPORT ASSISTANT SOSA Influenza - Rule Out 08/30/2019 11:32 AM SENIOR OFFICE SUPPORT ASSISTANT SOSA 09/17/2019 8:17 AM SENIOR OFFICE SUPPORT ASSISTANT SOSA RSV 08/31/2019 6:35 PM SENIOR OFFICE SUPPORT ASSISTANT SOSA documented as of this encounter
--- OUTSIDE RECORDS SUMMARY | 2019-11-28 22:27 | XMS REPORT | Encounter Summary ---
Author Author [facility] Organization [facility] Address Unknown Phone Unavailable Care Team Providers Care Stand Up Forklift Operator Name Role Phone Ebony Sharp MD PCP Encounter Details Care Team Description Date Type Department dAelaida Olivas MD [address] [facility] [address] [place] [address] [phone] 06/17/2017 Transcribe [facility] [address] [place] [address] Social History Date Tobacco Use Types Packs/Day [...] Description Date [place] [address] [place] [address] [phone] 02/29/2020 Office Visit Urology documented as of this encounter Visit Diagnoses Not on filedocumented in this encounter Additional Health Concerns Resolved Time Infection Noted Time 04/19/2018 12:13 PM CDT Influenza 08/30/2017 10:13 AM ARC WELDER APPRENTICE 08/30/2019 1:09 PM ARC WELDER APPRENTICE Influenza - Rule Out 08/30/2019 11:32 AM ARC WELDER APPRENTICE 09/17/2019 8:17 AM ARC WELDER APPRENTICE RSV 08/31/2019 6:35 PM ARC WELDER APPRENTICE documented as of this encounter
--- OUTSIDE RECORDS SUMMARY | 2019-11-28 22:27 | XMS REPORT | Encounter Summary ---
Author Author [facility] Organization [facility] Address Unknown Phone Unavailable Care Team Providers Care Trouble Dispatcher Name Role Phone Ebony Sharp MD PCP Reason for Visit * Reason Comments COPD feels like her chest is mor e tight and having more fatigue for the last few days Encounter Details Care Team Description Date Type Department Samuel Lee, COOPERATIVE EDUCATION DIRECTOR [address] [facility] [address] [place] [address] Shortness of breath (Primary Dx) 06/11/2017 Office Visit [facility] (walk-in clinic) [address] [facility] [address] [place] [address] Social History Date Tobacco Use [...] Signs Reading Time Taken Comments Vital Sign 140/94 06/11/2017 12:37 PM CDT Blood Pressure 74 06/11/2017 12:37 PM CDT Pulse 36.8 C (98.3 F) 06/11/2017 12:37 PM CDT Temperature - - Respiratory Rate 88% 06/11/2017 12:37 PM CDT Oxygen Saturation - - Inhaled Oxygen Concentration - - Weight - - Height - - Body Mass Index documented in this encounter Patient Instructions * Patient Instructions* Samuel Lee APRN - 06/11/2017 12:40 PM CDT Use home oxygen therapy as suggested by your provider. Please check your oxygen saturation at home or in store. Please use inhaler as needed. Otherwise, Fol low up with your primary physician if symptoms does not improve or worsening. documented in this encounter Progress Notes * Samuel Lee APRN - 06/11/2017 12:40 PM CDT Patient ID: Caren Patten is a 66 y.o. female Subjective: Patient presents with COPD (feels like her chest is more tight and having more f atigue for the last few days) Patient is a 66 yo female here with c/o shortness of breath that started 3 days ago. Report feeling sluggish and not having energy. 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 Today's SPO2 is 88%, patient is currently not on oxygen at the clinic. Patient report have not been using her oxygen because she didn't feel like she needs it. Otherwise, denies congestion or cough. Denies chest pain. Denies abdominal pain, nausea or vomiting. Denies fever and chill s. Patient Active Problem List Diagnosis SNOMED CT(R) [...] ankle fracture CLOSED FRACTURE OF LEFT ANKLE Allergies: Allergies Allergen Reactions Lisinopril Anaphylaxis Metformin Anaphylaxis Sulfa (Sulfonamide Antibiotics) Hives Medications: Outpatient Encounter Prescriptions as of 06/11/2017 Medication Sig Dispense Refill albuterol (PROAIR HFA) 90 mcg/actuation HFA inhaler Inhale 1 puff every 4 ( our) hours as needed for wheezing. 18 g 11 amitriptyline (ELAVIL) 25 MG tablet Take 1 tablet (25 mg total) by mouth nig htly. 90 tablet 1 amLODIPine (NORVASC) 2.5 MG tablet Take 2 tablets (5 mg total) by mouth eve y. Take one daily. 90 tablet 1 amLODIPine (NORVASC) 2.5 MG tablet TAKE 1 TABLET(2.5 MG) BY MOUTH DAILY 25 t ablet 0 BIOTIN ORAL Take 2 tablets by [...] with polye thlene glycol). 60 capsule 0 ergocalciferol (ERGOCALCIFEROL) 50,000 unit capsule TK 1 C PO WEEKLY 0 fluticasone-vilanterol (BREO ELLIPTA) 200-25 mcg/actuation INHALER Inhale 1 puff daily. 60 each 3 gabapentin (NEURONTIN) 300 MG capsule Take 1 capsule (300 mg total) by mouth 3 (three) times a day. 270 capsule 1 gabapentin (NEURONTIN) 300 MG capsule TAKE 1 CAPSULE(300 MG) BY MOUTH THREE TIMES DAILY 30 capsule 5 insulin glargine (LANTUS) 100 unit/mL injection Inject [...] (two) times a day. 180 tablet 1 naloxone (NARCAN) 4 mg/actuation [place] Use 1 spray in each nostril as needed (Give in one nostril if not breathing.After 2-3 min, repeat with new device in opposite nostril). 2 each 0 oxyCODONE (ROXICODONE) 5 MG immediate release tablet Take 1 tablet (5 mg tot al) by mouth every 4 (four) hours as needed. 60 tablet 0 OXYGEN THERAPY 2 L/min as needed. polyethylene glycol (GLYCOLAX) 17 gram packet Take 1 packet (17 g total) by mouth daily as needed (first line therapy with docusate). 14 each 0 senna-docusate (PERICOLACE) 8.6-50 mg Take 1 tablet by mouth 2 (two) times a day. simvastatin (ZOCOR) 20 MG tablet Take 1 tablet (20 mg total) by mouth nightl y. 90 tablet 1 ASCORBIC ACID, VITAMIN C, 500 MG tablet TK 1 T PO D 0 enoxaparin (LOVENOX) 40 mg/0.4 mL Syrg Inject 0.4 mL (40 mg total) under the skin every 24 hours. 30 Syringe 0 oxyCODONE (ROXICODONE) 10 mg immediate release tablet TK 1 T PO Q 6 H PRN P 0 No facility-administered encounter medications on file as of 06/11/2017. History: Past Medical History: Diagnosis Date Allergic [...] ANKLE ARTHRODESIS; Surgeon: Adelaida Olivas MD; Location: [facility] Main OR; Service: Orthopedics; Later ality: Left; TONSILLECTOMY TOTAL KNEE ARTHROPLASTY Left 2009 TOTAL KNEE ARTHROPLASTY Right 2010 Family History Problem Relation Age of Onset Cancer Mother Stroke Mother Cancer Father Stroke Father Social History Social History Marital status: Single [...] Full Review of Systems Constitutional: Positive for fatigue. Negative for chills and fever. HENT: Negative for congestion. Respiratory: Positive for shortness of breath. Negative for cough, chest tightne ss and wheezing. Cardiovascular: Negative for chest pain and palpitations. Objective: BP (!) 140/94 | Pulse 74 | Temp 36.8 C (98.3 F) | SpO2 (!) 88% Physical Exam Constitutional: She is oriented to person, place, and time. She appears well-dev eloped and well-nourished. No distress. Neck: Normal range of motion. Neck supple. Cardiovascular: Normal rate. No murmur heard. Pulmonary/Chest: Effort normal and breath sounds normal. She has no wheezes. She has no rhonchi. She has no rales. Bilateral breath sounds with decreased aeration. Neurological: She is alert and oriented to person, place, and time. Skin: Skin is warm and dry. Psychiatric: She has a normal mood and affect. Diagnoses and all orders for this visit: Shortness of breath - Recommend to use home oxygen therapy of 2.5L as prescribed by her provider - Recommend to spot check her SPO2 Patient Instructions Use home oxygen therapy as suggested by your provider. Please check your oxygen saturation at home or in store. Please use inhaler as needed. Otherwise, Fol low up with your primary physician if symptoms does not improve or worsening. documented in this encounter Plan of Treatment Care Team Description [place] [address] [place] [address] [phone] 02/29/2020 Office Visit Urology documented as of this encounter Visit Diagnoses Diagnosis Shortness of breath documented in this encounter"
--- OUTSIDE RECORDS SUMMARY | 2019-11-28 22:27 | XMS REPORT | Encounter Summary ---
Author Author [facility] Organization [facility] Address Unknown Phone Unavailable Care Team Providers Care Head Packager Name Role Phone Ebony Sharp MD PCP Encounter Details Care Team Description Date Type Department Jennifer Feng RN 06/08/2017 Telephone [facility] (walk-in clinic) [address] [facility] [address] [place], [place] [id number] Social History Date Tobacco Use Types Packs/Day [...] Telephone Encounter - Ebony Sharp MD - 06/08/2017 11:39 AM CDT no * Telephone Encounter - Jennifer Feng RN - 06/08/2017 10:44 AM CDT Pt's dtr called requesting med nec for handicap tag. Please advise. Thank you. documented in this encounter Plan of Treatment Care Team Description [place] [address] [place] [address] [phone] 02/29/2020 Office Visit Urology documented as of this encounter Visit Diagnoses Not on filedocumented in this encounter
--- OUTSIDE RECORDS SUMMARY | 2019-11-28 22:27 | XMS REPORT | Encounter Summary ---
Author Author [facility] Organization [facility] Address Unknown Phone Unavailable Care Team Providers Care Square Cutter Name Role Phone Ebony Sharp MD PCP Encounter Details Care Team Description Date Type Department Adelaida Olivas MD [address] [facility] [address] [place] [address] [phone] 06/16/2017 Hist-Other [facility] [address] [place] [address] Social History Date Tobacco Use Types Packs/Day [...] Description Date [place] [address] [place] [address] [phone] 02/29/2020 Office Visit Urology documented as of this encounter Procedures Comments Procedure Name Priority Date/Time Associated Diag nosis XR ANKLE Routine 06/16/2017 11:40 AM CDT documented in this encounter Results * XR Ankle (06/16/2017 11:40 AM CDT) Specimen Performing Organization Address City/State/Zipcode Ph one Number [email or web address] documented in this encounter Visit Diagnoses Not on filedocumented in this encounter Additional Health Concerns Resolved Time Infection Noted Time 04/19/2018 12:13 PM CDT Influenza 08/30/2017 10:13 AM GRADUATION COACH documented as of this encounter
--- OUTSIDE RECORDS SUMMARY | 2019-11-28 22:27 | XMS REPORT | Encounter Summary ---
Author Author [facility] Organization [facility] Address Unknown Phone Unavailable Care Team Providers Care Credit Historian Name Role Phone Ebony Sharp MD PCP Reason for Visit * Reason Comments Follow-up Margot lt 05-13-17 HKW Encounter Details Care Team Description Date Type Department Adelaida Olivas MD [address] [facility] [address] [place] [address] [phone] 05/27/2017 Hist-Appointmen [facility] [address] [facility] [address] [place] [address] Social History Date Tobacco Use Types Packs/Day [...] Description Date [place] [address] [place] [address] [phone] 02/29/2020 Office Visit Urology documented as of this encounter Visit Diagnoses Not on filedocumented in this encounter Additional Health Concerns Resolved Time Infection Noted Time 04/19/2018 12:13 PM CDT Influenza 08/30/2017 10:13 AM VACUUM CLEANER REPAIR PERSON documented as of this encounter
--- OUTSIDE RECORDS SUMMARY | 2019-11-28 22:27 | XMS REPORT | Encounter Summary ---
Author Author [facility] Organization [facility] Address Unknown Phone Unavailable Care Team Providers Care Associate Store Manager Name Role Phone Ebony Sharp MD PCP Encounter Details Care Team Description Date Type Department Adelaida Olivas MD [address] [facility] [address] [place] [address] 06/07/2017 [facility] [address] [facility] [address] [place] [address] Social History Date Tobacco Use [...] Clinic Note - Adelaida Olivas MD - 06/07/2017 11:02 AM CDT Phone Note Call from Patient Caller: Daughter Summary of call: Patients daughter Esperanza is calling to request a handicap p lacard for the patient. Please call Esperanza back at [phone] Call taken by: Daphne Roa on June 07, 2017 11:02 AM Follow-up for Phone Call Follow-up Details: I spoke with the patient's daughter and she said the patient got a car and needs a new placard because she did not use the form we gave her o n 04/09. The patients daughter will olive picker the new paperwork in the office. Follow-up by: Rg Lopez on June 07, 2017 11:43 AM documented in this encounter Plan of Treatment Care Team Description [place] [address] [place] [address] [phone] 02/29/2020 Office Visit Urology documented as of this encounter Visit Diagnoses Not on filedocumented in this encounter Additional Health Concerns Resolved Time Infection Noted Time 04/19/2018 12:13 PM CDT Influenza 08/30/2017 10:13 AM CRM BUSINESS ANALYST 08/30/2019 1:09 PM CRM BUSINESS ANALYST Influenza - Rule Out 08/30/2019 11:32 AM CRM BUSINESS ANALYST 09/17/2019 8:17 AM CRM BUSINESS ANALYST RSV 08/31/2019 6:35 PM CRM BUSINESS ANALYST documented as of this encounter
--- OUTSIDE RECORDS SUMMARY | 2019-11-28 22:27 | XMS REPORT | Encounter Summary ---
Author Author [facility] Organization [facility] Address Unknown Phone Unavailable Care Team Providers Care City Library Director Name Role Phone Ebony Sharp MD PCP Reason for Visit * Reason Comments Follow-up Margot left ankle/ 06/09/2017 bcTVX: Appt. Reminder (06/14/2017 06:41 PM) Phone Call - Responded "Yes" (Y=Answere d - Yes) Encounter Details Care Team Description Date Type Department Adelaida Olivas MD [address] [facility] [address] [place] [address] [phone] 06/16/2017 Hist-Appointmen [facility] [address] [facility] [address] [place] [address] Social History Date Tobacco Use Types Packs/Day [...] Description Date [place] [address] [place] [address] [phone] 02/29/2020 Office Visit Urology documented as of this encounter Visit Diagnoses Not on filedocumented in this encounter Additional Health Concerns Resolved Time Infection Noted Time 04/19/2018 12:13 PM CDT Influenza 08/30/2017 10:13 AM GALLERY INTERN documented as of this encounter
--- OUTSIDE RECORDS SUMMARY | 2019-11-28 22:27 | XMS REPORT | Encounter Summary ---
Author Author [facility] Organization [facility] Address Unknown Phone Unavailable Care Team Providers Care Environmental Specialist Name Role Phone Ebony Sharp MD PCP Reason for Visit * Reason Comments Other Encounter Details Care Team Description Date Type Department Ebony Sharp MD [address] [facility] [address] [place] [address] [phone] Other 06/08/2017 Refill [facility] y [facility] (walk-in clinic) [address] [facility] [address] [place], [place] [id number] Social History Date Tobacco Use Types Packs/Day [...] Description Date [place] [address] [place] [address] [phone] 02/29/2020 Office Visit Urology documented as of this encounter Visit Diagnoses Not on filedocumented in this encounter Additional Health Concerns Resolved Time Infection Noted Time 04/19/2018 12:13 PM CDT Influenza 08/30/2017 10:13 AM MOTOR ANALYST 08/30/2019 1:09 PM MOTOR ANALYST Influenza - Rule Out 08/30/2019 11:32 AM MOTOR ANALYST 09/17/2019 8:17 AM MOTOR ANALYST RSV 08/31/2019 6:35 PM MOTOR ANALYST documented as of this encounter
--- OUTSIDE RECORDS SUMMARY | 2019-11-28 22:27 | XMS REPORT | Encounter Summary ---
Author Author [facility] Organization [facility] Address Unknown Phone Unavailable Care Team Providers Care Rn Immunology Name Role Phone Ebony Sharp MD PCP Reason for Referral * Diagnostic Imaging (Routine) Referred By Contact Referred To Contact Status Reason Specialty Diagnoses / Procedures Adelaida Olivas MD [address] [facility] [address] [place] [address] Closed Diagnoses Left ankle pain P rocedures US Venous Duplex Lower Extremity left Reason for Visit * Diagnostic Imaging (Routine) Referred By Contact Referred To Contact Status Reason Specialty Diagnoses / Procedures Adelaida Olivas MD [address] [facility] [address] [place] [address] Closed Diagnoses Left ankle pain P rocedures US Venous Duplex Lower Extremity left Encounter Details Care Team Description Date Type Department Adelaida Olivas MD [address] [facility] [address] [place], [place] [id number] Left ankle pain 06/16/2017 [facility] [address] [place], [place] [id number] Social History Date Tobacco Use Types Packs/Day [...] OXYGEN THERAPY 2 L/min as 0 needed. 02/14/2016 06/24/2017 albuterol (PROAIR HFA) 90 Inhale 1 puff 18 g 11 mcg/actuation HFA inhaler every 4 (four) hours as needed for wheezing. 04/08/2017 08/26/2017 amitriptyline (ELAVIL) 25 Take 1 tablet 90 tablet 1 MG tablet (25 mg total) by mouth nightly. 04/08/2017 08/26/2017 amLODIPine (NORVASC) 2.5 Take 2 90 tablet 1 MG tablet tablets (5 mg total) by mouth daily. Take one daily. 05/09/2017 07/09/2017 amLODIPine (NORVASC) 2.5 TAKE 1 25 tablet 0 MG tablet TABLET(2.5 MG) BY MOUTH DAILY 06/13/2017 07/09/2017 amLODIPine (NORVASC) 2.5 TAKE 1 30 tablet 0 MG tablet TABLET(2.5 MG) BY MOUTH DAILY 04/08/2017 11/25/2017 ASCORBIC ACID, VITAMIN C, TK [...] constipation (first line therapy with polyethlene glycol). 04/12/2017 07/09/2017 enoxaparin (LOVENOX) 40 Inject 0.4 mL 30 Syringe 0 mg/0.4 mL (40 mg total) SyrgIndications: deep under the vein thrombosis skin every 24 prevention hours. 04/08/2017 07/09/2017 ergocalciferol TK 1 C PO 0 (ERGOCALCIFEROL) 50,000 WEEKLY unit capsule 04/08/2017 08/04/2017 fluticasone-vilanterol Inhale 1 puff 60 each 3 (BREO ELLIPTA) 200-25 daily. mcg/actuation INHALERIndications: maintenance therapy for asthma 04/08/2017 08/26/2017 gabapentin (NEURONTIN) Take 1 270 capsule 1 300 MG capsule capsule (300 mg total) by mouth 3 (three) times a day. 04/13/2017 07/09/2017 gabapentin (NEURONTIN) TAKE 1 30 capsule 5 300 MG capsule CAPSULE(300 MG) BY MOUTH THREE TIMES DAILY 04/12/2017 08/26/2017 insulin glargine (LANTUS) Inject 18 10 mL 0 100 unit/mL injection Units under the skin nightly. When steroid complete - resume taking 15 units rather than 30 04/08/2017 08/26/2017 insulin syringe (BD Inject under 100 each 1 ULTRA-FINE) 0.3 mL 31 the skin gauge x 5/16 daily. use as directed 04/08/2017 08/26/2017 metoprolol tartrate Take 1 tablet 180 tablet 1 (LOPRESSOR) 100 MG tablet (100 mg total) by mouth 2 (two) times a day. 04/12/2017 07/09/2017 naloxone (NARCAN) 4 Use 1 spray 2 each 0 mg/actuation in each SpryIndications: nostril as opiate-induced needed (Give respiratory depression in one nostril if not breathing. After 2-3 min, repeat with new device in opposite nostril). 05/15/2017 07/09/2017 oxyCODONE (ROXICODONE) 10 TK 1 T PO Q 6 0 mg immediate release H PRN P tablet 04/12/2017 07/09/2017 oxyCODONE (ROXICODONE) 5 Take 1 tablet 60 tablet 0 MG immediate release (5 mg total) tabletIndications: pain by mouth every 4 (four) hours as needed. 04/12/2017 07/09/2017 polyethylene glycol Take 1 packet 14 each 0 (GLYCOLAX) 17 gram packet (17 g total) by mouth daily as needed (first line therapy with docusate). 04/12/2017 07/09/2017 senna-docusate Take 1 tablet 0 (PERICOLACE) 8.6-50 mg by mouth 2 (two) times a day. 04/08/2017 08/26/2017 simvastatin (ZOCOR) 20 MG Take 1 tablet 90 tablet 1 tablet (20 mg total) by mouth nightly. documented as of this encounter Plan of Treatment Care Team Description Date [place] [address] [place] [address] [phone] 02/29/2020 Office Visit Urology documented as of this encounter Procedures Comments Procedure Name Priority Date/Time Associated Diag nosis US VENOUS DUPLEX LOWER Routine 06/16/2017 Left an kle pain EXTREMITY LEFT 1:39 PM CDT documented in this encounter Results * US Venous Duplex Lower Extremity left (06/16/2017 1:39 PM CDT) Specimen Impressions Performed At Negative left leg doppler ultrasound examination with out evidence of LEVI deep venous thrombosis. READING SITE: [facility] NOTE: Parts of this report were generated wit [employer] voice recognition software. J Digit Imagin2010;24(4):724-4. Narrative Performed At Patient: ISIAH BENÍTEZ Sex#: F # [id number] Jose#: [id number] [place] [facility] [place] Procedure Requested: [id number] US VENOU S DUPLEX LOWER EXTREMITY LEFT Reason for Exam: Left ankle pain Exam Ordered: 06/16/2017 1 241 Exam Date/Time: 06/16/2017 13 39 Begin exam date/time: 06/16/2017 12 59 LEFT LOWER EXTREMITY DOPPLER ULTRASOUND Sonographic Duplex and Color Doppler evaluation of leg veins was performed. Sonographic Duplex/Doppler evaluation reveals satisfactory caliber and response to compression of the left c ommon femoral, proximal grater saphenous, proximal deep femoral, super ficial femoral, popliteal, posterior tibial, and peroneal veins. No intraluminal thrombus is visualized. There is normal response to augmentation within the visualized veno us structures. Procedure Note Interface, Rad Results In - 06/16/2017 2:42 PM CDT Patient: ISIAH BENÍTEZ Sex#: Paulina # [id number] Jose#: [id number] Location: [facility] US Procedure Requested: [id number] US VENOUS DUPLEX LOWER EXTREMITY LEFT Reason for Exam: Left ankle pain Exam Ordered: 06/16/2017 1241 Exam Date/Time: 06/16/2017 1339 Begin exam date/time: 06/16/2017 1259 LEFT LOWER EXTREMITY DOPPLER ULTRASOUND Sonographic Duplex and Color Doppler evaluation of leg veins was performed. Sonographic Duplex/Doppler evaluation reveals satisfactory caliber and response to compression of the left common femoral, proximal grater saphenous, proximal deep femoral, superficial femoral, popliteal, posterior tibial, and peroneal veins. No intraluminal thrombus is visualized. There is normal response to augmentation within the visualized venous structures. IMPRESSION Negative left leg doppler ultrasound examination without evidence of deep venous thrombosis. READING SITE: [facility] NOTE: Parts of this report were generated with voice recognition software. J Digit Imagin2010;24(4):724-8. Performing Organization Address City/State/Zipcode Ph one Number [email or web address] documented in this encounter Visit Diagnoses Diagnosis Left ankle pain Pain in joint, ankle and foot documented in this encounter
--- OUTSIDE RECORDS SUMMARY | 2019-11-28 22:27 | XMS REPORT | Encounter Summary ---
Author Author [facility] Organization [facility] Address Unknown Phone Unavailable Care Team Providers Care Airplane Fueler Name Role Phone Ebony Sharp MD PCP Encounter Details Care Team Description Date Type Department Ebony Sharp MD [address] [facility] [address] [place], [place] [address] Type 2 diabetes mellitus with hyperglyce prasanna, 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) 07/09/2017 Lab [facility] [place] [address] [facility] [address] [facility] [place], [place] [id number] Social History Date Tobacco Use Types Packs/Day [...] Notes * Ebony Sharp MD - 07/09/2017 12:50 PM CONCRETE PILE DRIVER OPERATOR The a1c is much better when you lose weight! RETE PILE DRIVER OPERATOR documented in this encounter Plan of Treatment Care Team Description Date [place] [address] [place] [address] [phone] 02/29/2020 Office Visit Urology documented as of this encounter Procedures Comments Procedure Name Priority Date/Time Associated Diag nosis HEMOGLOBIN A1C Routine 07/09/2017 Type 2 diabetes mellitus 12:57 PM CONCRETE PILE DRIVER OPERATOR with hyperglycemia, 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) documented in this encounter Results * Hemoglobin A1C (07/09/2017 12:57 PM CONCRETE PILE DRIVER OPERATOR) Hemoglobin A1C 7.5 (H) 4.0 - 5.6 % [facility] Comment: REGIONAL Non-diabetic 4.0 - LABORATORIES 5.6 % Prediabetes 5.7 - 6.4 % Diabetes >= 6.5 % Specimen Blood Performing Organization Address City/State/Zipcode Ph one Number [address] [address] LABORATORIES documented in this encounter Visit Diagnoses Diagnosis Type 2 diabetes mellitus with hyperglyc emia, 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) documented in this encounter
--- OUTSIDE RECORDS SUMMARY | 2019-11-28 22:27 | XMS REPORT | Encounter Summary ---
Author Author [facility] Organization [facility] Address Unknown Phone Unavailable Care Team Providers Care Manager Internet Name Role Phone Ebony Sharp MD PCP Encounter Details Care Team Description Date Type Department Adelaida Olivas MD [address] [facility] [address] [place] [address] [phone] 05/27/2017 Hist-Other [facility] [address] [place] [address] Social History Date Tobacco Use Types Packs/Day [...] Description Date [place] [address] [place] [address] [phone] 02/29/2020 Office Visit Urology documented as of this encounter Procedures Comments Procedure Name Priority Date/Time Associated Diag nosis XR FOOT LEFT Routine 05/27/2017 3:51 PM CDT documented in this encounter Results * XR Foot left (05/27/2017 3:51 PM CDT) Specimen Performing Organization Address City/State/Zipcode Ph one Number [place] documented in this encounter Visit Diagnoses Not on filedocumented in this encounter Additional Health Concerns Resolved Time Infection Noted Time 04/19/2018 12:13 PM CDT Influenza 08/30/2017 10:13 AM ELECTRONIC ASSEMBLER GROUP LEADER documented as of this encounter
--- OUTSIDE RECORDS SUMMARY | 2019-11-28 22:27 | XMS REPORT | Encounter Summary ---
Author Author [facility] Organization [facility] Address Unknown Phone Unavailable Care Team Providers Care Dye Worker Name Role Phone Ebony Sharp MD PCP Reason for Visit * Reason Comments Other Encounter Details Care Team Description Date Type Department Honey Cardoza, CRIBBER [address] [facility] [address] [place] [address] [phone] Other 05/25/2017 Refill [facility] [address] [facility] [place] [address] Social History Date Tobacco Use Types Packs/Day [...] Description Date [place] [address] [place] [address] [phone] 02/29/2020 Office Visit Urology documented as of this encounter Visit Diagnoses Not on filedocumented in this encounter Additional Health Concerns Resolved Time Infection Noted Time 04/19/2018 12:13 PM CDT Influenza 08/30/2017 10:13 AM DROP WIRE ALINER 08/30/2019 1:09 PM DROP WIRE ALINER Influenza - Rule Out 08/30/2019 11:32 AM DROP WIRE ALINER 09/17/2019 8:17 AM DROP WIRE ALINER RSV 08/31/2019 6:35 PM DROP WIRE ALINER documented as of this encounter
--- OUTSIDE RECORDS SUMMARY | 2019-11-28 22:27 | XMS REPORT | Encounter Summary ---
Author Author [facility] Organization [facility] Address Unknown Phone Unavailable Care Team Providers Care Computational Chemist Name Role Phone Ebony Sharp MD PCP Encounter Details Care Team Description Date Type Department Adelaida Olivas MD [address] [facility] [address] [place] [address] 06/10/2017 [facility] [address] [facility] [address] [place], [place] [id number] Social History Date Tobacco Use Types Packs/Day [...] Clinic Note - Adelaida Olivas MD - 06/10/2017 2:23 PM CDT Phone Note Call from Patient Summary of call: Patient left message requesting a refill of her Oxycodone. Plea call patient back at [phone]. Call taken by: Alec Jimenez on June 10, 2017 2:23 PM Follow-up for Phone Call Follow-up Details: Per Brendon this is ok. Patient should not exced more than 3 pe r day. I called the patient to inform them of this. Follow-up by: Rg Lopez on June 10, 2017 5:03 PM Prescriptions: OXYCODONE HCL 5 MG ORAL TABLET (OXYCODONE HCL) 1 po q 8 hours not to exceed 3 pe r day #40 x 0 Entered by: Rg Lopez Authorized by: Adelaida Olivas MD Signed by: Rg Lopez on 06/10/2017 Method used: Print then Give to Patient RxID: [id number] OXYCODONE HCL 5 MG ORAL TABLET (OXYCODONE HCL) 1 po q 8 hours not to exceed 3 pe r day #0 x 0 Entered by: Rg Lopez Authorized by: Adelaida Olivas MD Signed by: Rg Lopez on 06/10/2017 Method used: Print then Give to Patient RxID: [id number] OXYCODONE HCL 5 MG ORAL TABLET (OXYCODONE HCL) 1 po q 8 hours not to exced 3 per day #40 Tablet x 0 Entered by: Rg Lopez Authorized by: Adelaida Olivas MD Signed by: Rg Lopez on 06/10/2017 Method used: Print then Give to Patient RxID: [id number] documented in this encounter Plan of Treatment Care Team Description Date [place] [address] [address] [phone] 02/29/2020 Office Visit Urology documented as of this encounter Visit Diagnoses Not on filedocumented in this encounter Additional Health Concerns Resolved Time Infection Noted Time 04/19/2018 12:13 PM CDT Influenza 08/30/2017 10:13 AM MANAGER PULMONARY 08/30/2019 1:09 PM MANAGER PULMONARY Influenza - Rule Out 08/30/2019 11:32 AM MANAGER PULMONARY 09/17/2019 8:17 AM MANAGER PULMONARY RSV 08/31/2019 6:35 PM MANAGER PULMONARY documented as of this encounter
--- OUTSIDE RECORDS SUMMARY | 2019-11-28 22:28 | XMS REPORT | Encounter Summary ---
Author Author [facility] Organization [facility] Address Unknown Phone Unavailable Care Team Providers Care Coding Manager Name Role Phone Ebony Sharp MD PCP Reason for Visit * Reason Comments Hospital Follow-up [facility]IE DC 04/12/17-F/U Type 2 D M w/ hyperglycemia,long-term current use of insulin (HCC) TAZ RNCC Encounter Details Care Team Description Date Type Department Francoise Hagan RN Hospital Follow-up (KARIE DC 04/12/17-F/U T ype 2 DM w/ hyperglycemia,long-term current use of insulin (HCC) TAZ RNCC) 04/13/2017 Telephone [facility] (walk-in clinic) [address] [facility] [address] [place] [address] Social History Date Tobacco Use [...] encounter Miscellaneous Notes * Telephone Encounter - Francoise Hagan RN - 04/13/2017 8:18 AM CDT [facility] FOLLOW UP / TRANSITIONAL CARE COORDINATION PATIENT NAME/DATE OF Caren Patten (1950) DATE OF LAST OFFICE VISIT: 04/08/17 Lila ( surgery clearance) FACILITY/ADMISSION DATE: 04/09/17 [facility] DISCHARGE DATE/DISPOSITION: 8/21/17 (home self care) DISCHARGE DIAGNOSIS: Type 2 diabetes mellitus with hyperglycemia, with long-ter m current use of insulin (HCC HOSPITAL COURSE: Presented to hospital for elective removal of hardware and revi luanne of the arthrodesis due to pain with weight bearing activities and non-heali ng from trimalleolar fracture sustained in 1998. Pt has been using a bone stimul ator without improvement. Unable to walk long distances or stand.Wound vac in pl [address]. No discharge summary available at this time to review 04/13/17 0951. DC home self care. RELEVANT LAB/XRAY FINDING IN HOSPITAL: XR ANKLE MIN 3 VIEWS LEFT : FINDINGS/IMPRESSION: Intra-operative fluoroscopy was utilized. Fluoroscopy time was 113.4 seconds. Initial images demonstrate removal of previously visualized surgical screws seen for prior tibiotalar arthrodesis. Advanced ankle arthrosis is noted. Subsequent images demonstrate changes of fibular osteotomy, as well as tibiotalar arthrodesis, with side plate and multiple cortical screws seen. Stimulator/generator device is also noted in the adjacent soft tissues. Component Latest Ref Rng & Units 04/10/2017 WBC 4.00 - 11.00 TH/uL 18.60 (H) RBC 4.00 - 5.00 MIL/uL 4.04 HEMOGLOBIN 12.0 - 15.0 g/dL 13.4 HEMATOCRIT 36 - 45 % 40 MCV 80 - 99 fL 99 MCH 27 - 34 pg 33 MCHC 32 - 36 % 34 RDW 9.0 - 14.5 % 13.5 Platelet Count 140 - 400 TH/uL 217 MPV Component Latest Ref Rng & Units 04/08/2017 Creatinine Urine Random mg/dL 439.2 Microalbumin mg/dl mg/dL 10.40 Microalbumin/Creatinine Ratio 0.00 - 30.00 ug/mg 23.68 Component Latest Ref Rng & Units 04/08/2017 Thyroid Stimulating Hormone 0.47 - 4.68 uIU/mL 0.35 (L) 9.4 - 12.3 fL Component Latest Ref Rng & Units 04/08/2017 CHOLESTEROL 100 - 200 mg/dL 193 HDL CHOLESTEROL 40 - 110 mg/dL 54 Non-HDL Cholesterol 0 - 130 mg/dL 139 (H) TRIGLYCERIDES 0 - 150 mg/dL 182 (H) LDL Cholesterol 0 - 99 mg/dL 103 (H) Cholesterol/HDL Ratio 0.0 - 4.5 3.6 Component Latest Ref Rng & Units 04/08/2017 HEMOGLOBIN A1C 4.0 - 5.6 % 8.1 (H) 10.5 MEDICATION CHANGES AT DISCHARGE: START: Colace 100 mg Po bid prn constipation, Lovenox 40mg/0.4ml sq q 24hrs, Narcan 4 mg 1 spray each nostril prn, Oxycodone 5 mg po q 4 hrs prn pain, polyethylene glycol 17gm packet Orally qd prn constipa tion, pericolace 8.6-50 mg po bid. STOPPED: MS Contin 15 mg, Morphine 15 mg, Percocet 10-325mg ADDITIONAL NEEDS (HH, PT/OT, MEDICAL EQUIP, ETC): CONSULTS AT DISCHARGE: Ortho 04/15/17 CURRENT STATUS: 1st call attempt 04/13/17. Pt reports pain manageable. Getting ar ound home without difficulty. Elevating leg when resting. Eating well but feels tired. MEDICATION RECONCILIATION: Not reviewed INSTRUCTIONS GIVEN: Encouraged pt to elevate leg for swelling, monitor intake cl osely for diabetes. Report any fever, drainage or increased pain. Instructed to call with questions or concerns. Verbalized understanding. No further question s at time of call. Appt scheduled w/ PCP. ADDITIONAL NOTES: [facility] AUXILIARY EQUIPMENT TENDER: Francoise Hagan RN documented in this encounter Plan of Treatment Care Team Description Date [place] [address] [place] [address] [phone] 02/29/2020 Office Visit Urology documented as of this encounter Visit Diagnoses Not on filedocumented in this encounter
--- OUTSIDE RECORDS SUMMARY | 2019-11-28 22:28 | XMS REPORT | Encounter Summary ---
Author Author [facility] Organization [facility] Address Unknown Phone Unavailable Care Team Providers Care Singeing Torch Operator Name Role Phone Ebony Sharp MD PCP Encounter Details Care Team Description Date Type Department Adelaida Olivas MD [address] [facility] [address] [place] [address] 04/27/2017 [facility] [address] [address] [place] [address] Social History Date Tobacco Use [...] Clinic Note - Adelaida Olivas MD - 04/27/2017 4:17 PM CDT Phone Note Call from Patient Summary of call: Patient returning Kari call. Please call patient back at Call taken by: Kateryna Isidro on April 27, 2017 4:19 PM Follow-up for Phone Call Follow-up Details: I left a message for a return phone call. Follow-up by: Kari Young on April 28, 2017 11:03 AM Additional Follow-up for Phone Call Additional Follow-up Details: Patient is calling. She is returning the above rosalind l. Please call back at [phone]. Additional Follow-up by: Trina Rhodes on April 28, 2017 1:22 PM Additional Follow-up for Phone Call Additional Follow-up Details: I left a message for a return phone call. Additional Follow-up by: Kari Young on April 28, 2017 3:34 PM Additional Follow-up for Phone Call Additional Follow-up Details: Patient is returning call, please call back at [phone]. Additional Follow-up by: Steve Sandhu on April 28, 2017 4:06 PM Additional Follow-up for Phone Call Additional Follow-up Details: Patient in office today. Additional Follow-up by: Kari Young on April 29, 2017 9:56 AM documented in this encounter Plan of Treatment Care Team Description Date [place] [address] [address] [phone] 02/29/2020 Office Visit Urology documented as of this encounter Visit Diagnoses Not on filedocumented in this encounter Additional Health Concerns Resolved Time Infection Noted Time 04/19/2018 12:13 PM CDT Influenza 08/30/2017 10:13 AM TWISTING DEPARTMENT END FINDER 08/30/2019 1:09 PM TWISTING DEPARTMENT END FINDER Influenza - Rule Out 08/30/2019 11:32 AM TWISTING DEPARTMENT END FINDER 09/17/2019 8:17 AM TWISTING DEPARTMENT END FINDER RSV 08/31/2019 6:35 PM TWISTING DEPARTMENT END FINDER documented as of this encounter
--- OUTSIDE RECORDS SUMMARY | 2019-11-28 22:28 | XMS REPORT | Encounter Summary ---
Author Author [facility] Organization [facility] Address Unknown Phone Unavailable Care Team Providers Care Machine Joint Cutter Name Role Phone Ebony Sharp MD PCP Reason for Visit * Reason Comments Other Encounter Details Care Team Description Date Type Department Ebony Sharp MD [address] [facility] [address] [place] [address] [phone] Other 05/06/2017 Refill [facility] (walk-in clinic) [address] [facility] [address] [place], [place] [id number] Social History Date Tobacco Use Types Packs/Day [...] Description Date [place] [address] [place] [address] [phone] 02/29/2020 Office Visit Urology documented as of this encounter Visit Diagnoses Not on filedocumented in this encounter Additional Health Concerns Resolved Time Infection Noted Time 04/19/2018 12:13 PM CDT Influenza 08/30/2017 10:13 AM CLERK GUIDE 08/30/2019 1:09 PM CLERK GUIDE Influenza - Rule Out 08/30/2019 11:32 AM CLERK GUIDE 09/17/2019 8:17 AM CLERK GUIDE RSV 08/31/2019 6:35 PM CLERK GUIDE documented as of this encounter
--- OUTSIDE RECORDS SUMMARY | 2019-11-28 22:28 | XMS REPORT | Encounter Summary ---
Author Author [facility] Organization [facility] Address Unknown Phone Unavailable Care Team Providers Care Hooker Up Name Role Phone Ebony Sharp MD PCP Encounter Details Care Team Description Date Type Department Adelaida Olivas MD [address] [facility] [address] [place] [address] [phone] 04/29/2017 Hist-Other [facility] [address] [place] [address] Social History Date Tobacco Use Types Packs/Day [...] Description Date [place] [address] [place] [address] [phone] 02/29/2020 Office Visit Urology documented as of this encounter Procedures Comments Procedure Name Priority Date/Time Associated Diag nosis XR ANKLE LEFT Routine 04/29/2017 2:52 PM CDT documented in this encounter Results * XR Ankle left (04/29/2017 2:52 PM CDT) Specimen Performing Organization Address City/State/Zipcode Ph one Number [place] documented in this encounter Visit Diagnoses Not on filedocumented in this encounter Additional Health Concerns Resolved Time Infection Noted Time 04/19/2018 12:13 PM CDT Influenza 08/30/2017 10:13 AM TAX ACCOUNTING MANAGER documented as of this encounter
--- OUTSIDE RECORDS SUMMARY | 2019-11-28 22:28 | XMS REPORT | Encounter Summary ---
Author Author [facility] Organization [facility] Address Unknown Phone Unavailable Care Team Providers Care Competitive Intelligence Manager Name Role Phone Ebony Sharp MD PCP Reason for Visit * Reason Comments Shortness of Breath patient presents to ED c.o shortness of breath, dizziness, nausea, facial swelling and abdominal pain. patient r eports symptoms started this AM. patient reports that she recently had s urgery on her left foot. reports use of lovenox. Encounter Details Care Team Description Date Type Department Jason Guillory, DO [address] [facility] [place] [address] Chronic bronchitis, unspecified chronic bronchitis type (HCC) (Primary Dx); Dyspnea, unspecified type 05/10/2017 Emergency [facility] [address] [facility] [place] [address] Social History Date Tobacco Use Types [...] Signs Reading Time Taken Comments Vital Sign 144/71 05/10/2017 4:30 PM CDT Blood Pressure 105 05/10/2017 4:30 PM CDT Pulse 36.5 C (97.7 F) 05/10/2017 11:20 AM CDT Temperature 20 05/10/2017 4:31 PM CDT Respiratory Rate 93% 05/10/2017 4:01 PM CDT Oxygen Saturation - - Inhaled Oxygen Concentration 101.2 kg (223 lb) 05/10/2017 11:20 AM CDT Weight 157.5 cm (5' 2") 05/10/2017 11:20 AM CDT Height 40.79 05/10/2017 11:20 AM CDT Body Mass Index documented in this encounter Discharge Instructions * Attachments The following attachments cannot be sent through Care Everywhere.* BRONCHITIS, ANTIOBIOTIC TREATMENT (ADULT) (BAHAMIAN) documented in this encounter Medications at Time of Discharge Start Date End Date Medication Sig Dispensed Refills 02/14/2016 01/14/2028 ipratropium-albuterol Inhale 3 mL 4 360 mL 11 (DUO-NEB) 0.5-3 mg/3 mL (four) times nebulizer a day. OXYGEN THERAPY 2 L/min as 0 needed. 05/10/2017 05/20/2017 doxycycline hyclate Take 1 20 capsule 0 (VIBRAMYCIN) 100 MG capsule (100 capsule mg total) by mouth 2 (two) times a day. 05/10/2017 05/14/2017 predniSONE (DELTASONE) 20 Take 3 15 tablet 0 MG tablet tablets (60 mg total) by mouth daily. 02/14/2016 06/24/2017 albuterol (PROAIR HFA) 90 Inhale [...] Take 2 0 tablets by mouth daily. 04/08/2017 08/26/2017 citalopram (CELEXA) [...] repeat with new device in opposite nostril). 04/12/2017 07/09/2017 oxyCODONE (ROXICODONE) 5 Take 1 [...] as of this encounter ED Notes * Deneen Hodge RN - 05/10/2017 4:05 PM CDT Pt called out to nrsg station requesting something for pain, RN to pt's room and pt reports "my ankle is hurting again". Notified Dr Henry and orders given. * Deneen Hodge RN - 05/10/2017 3:45 PM CDT Pt assisted to BSC by RN, daughter at bedside. Pt provided with warm blanket, ca ll light in reach. * Deneen Hodge RN - 05/10/2017 2:[address], pt should be going for CTA shortly; pt updated on plan of care and resti ng comfortably in cart. Family at bedside. * Deneen Hodge RN - 05/10/2017 1:[address] Guillory of elevated DDimer. Celso MEDINA at bedside with U/S for IV placeme nt in AC for anticipated CTA of chest. * Deneen Hodge RN - 05/10/2017 12:32 PM CDT Pt asked RN "can you get me something for my ankle pain?" Dr Guillory notified, orde rs given. * Deneen Hodge RN - 05/10/2017 12:20 PM CDT Pt called out to [facility] station, RN to bedside and pt reports "my ankle feels much better but now my left arm hurts." Dr Guillory notified, no new orders at this time. Will continue to monitor. * Deneen Hodge RN - 05/10/2017 12:00 PM CDT RT notified of breathing treatment order. * Evan Henry MD - 05/10/2017 11:42 AM CDT Associated Order(s): ED PROCEDURE BASIC - ECG INTERPRET 05/10/2017 [facility] History Chief Complaint Patient presents with Shortness of Breath patient presents to ED c.o shortness of breath, dizziness, nausea, facial swel ling and abdominal pain. patient reports symptoms started this AM. patient rep orts that she recently had surgery on her left foot. reports use of lovenox. The history is provided by the patient and medical records. Shortness of Breath Severity: Moderate Duration: 2 days Chronicity: Recurrent Associated symptoms: chest pain, fever (99) and sputum production Associated symptoms: no vomiting Chest pain: Quality: tightness Risk factors: recent surgery 66-year-old female with history of COPD presenting for shortness of air. This b anais over the past couple of days with initially a cough productive of green spu sandro but now just a dry cough. She did have a temperature of 99. She has had so me chills. She also reports having some chest discomfort and feels as if her ch est is tight believes she is having a COPD exacerbation. She is currently in a cast on the left leg as she is postop from surgery by [facility]. She is currently using Lovenox for prophylaxis. Past Medical History: Diagnosis Date Allergic rhinitis [...] year Review of Systems Constitutional: Positive for fever (99). Respiratory: Positive for sputum production and shortness of breath. Cardiovascular: Positive for chest pain. Gastrointestinal: Positive for diarrhea. Negative for blood in stool and vomitin g. All other systems reviewed and are negative. Physical Exam BP 127/73 | Pulse 107 | Temp 36.5 C (97.7 F) (Oral) | Resp 18 | Ht 1.575 m (5' 2") | Wt 101.2 kg (223 lb) | SpO2 94% | BMI 40.79 kg/m Physical Exam Constitutional: She is oriented to person, place, and time. She appears well-dev eloped and well-nourished. HENT: Head: Normocephalic and atraumatic. Eyes: Conjunctivae and EOM are normal. Pupils are equal, round, and reactive to light. Neck: Normal range of motion. Neck supple. Cardiovascular: Regular rhythm and normal heart sounds. Tachycardia present. Pulmonary/Chest: Effort normal and breath sounds normal. No respiratory distress . She has no wheezes. Abdominal: Soft. Bowel sounds are normal. Musculoskeletal: Normal range of motion. She exhibits no edema or tenderness. Cast left lower extremity Neurological: She is alert and oriented to person, place, and time. Skin: Skin is warm and dry. Psychiatric: She has a normal mood and affect. Nursing note and vitals reviewed. ED Course ECG Interpret Date/Time: 05/10/2017 2:47 PM Performed by: JASON GUILLORY Authorized by: JASON GUILLORY ECG reviewed by ED Physician in the absence of a pelota maker: yes Previous ECG: Previous ECG: Compared to current Comparison ECG info: 02/11/17 Similarity: No change Interpretation: Interpretation: normal Rate: ECG rate: 116 ECG rate assessment: tachycardic Rhythm: Rhythm: sinus tachycardia Ectopy: Ectopy: none QRS: QRS axis: Normal Conduction: Conduction: normal ST segments: ST segments: Normal The labs from this visit are Results for orders placed or performed during the hospital encounter of 05/10/17 (from the past 24 hour(s)) CBC and Diff (manual diff if necessary) Result Value Ref Range WBC 10.17 4.00 - 11.00 TH/uL RBC 3.51 (L) 4.00 - 5.00 MIL/uL Hemoglobin 11.5 (L) 12.0 - 15.0 g/dL Hematocrit 36 36 - 45 % MCV 104 (H) 80 - 99 fL MCH 33 27 - 34 pg MCHC 32 32 - 36 % RDW 14.0 9.0 - 14.5 % Platelet Count 152 140 - 400 TH/uL MPV 9.9 9.4 - 12.3 fL %Segmented Neutrophils 67 45 - 78 % %Lymphocytes 22 15 - 47 % %Monocytes 8 0 - 12 % %Eosinophils 3 0 - 7 % %Basophils 0 0 - 2 % # Granulocytes 6.85 (H) 1.7 - 6.8 TH/uL # Lymphocytes 2.19 1.0 - 3.3 TH/uL # Monocytes 0.84 0.2 - 0.9 TH/uL # Eosinophils 0.26 0.0 - 0.4 TH/uL # Basophils 0.03 0.0 - 0.1 TH/uL Comprehensive Metabolic Panel Result Value Ref Range Sodium 140 133 - 147 MEQ/L Potassium 4.0 3.5 - 5.3 MEQ/L Chloride 102 96 - 112 MEQ/L Carbon Dioxide 29 20 - 32 MEQ/L Anion Gap 9 5 - 17 Calcium 8.9 8.4 - 10.5 mg/dL Glucose 158 (H) 70 - 100 mg/dL Protein Total Serum 7.3 6.0 - 8.2 g/dL Albumin 4.0 3.5 - 5.0 g/dL Alkaline Phosphatase 99 42 - 140 IU/L Alanine Aminotransferase 28 13 - 69 IU/L Aspartate Aminotransferase 22 15 - 46 IU/L Bilirubin Total 0.3 0.2 - 1.3 mg/dL Blood Urea Nitrogen 15 7 - 26 mg/dL Creatinine 0.8 0.4 - 1.1 mg/dL GFR Female AA 87 60 - 200 GFR Female Non-AA 72 60 - 200 D Dimer Result Value Ref Range D Dimer 1.85 (H) 0.00 - 0.40 ug/mL FEU Troponin Result Value Ref Range Troponin <0.01 0.00 - 0.03 ng/mL The radiology results are XR Chest 2 views (PA and lateral) Final Result No focal consolidation. Left basilar atelectatic opacity likely related to atelectasis READING SITE: [facility] CT Angio Chest (Results Pending) Ebony Sharp MD [address] [facility] [address] [facility] [address] Schedule an appointment as soon as possible for a visit MDM Awaiting CT Angio results. If patient has pulmonary embolus then she will obvio usly need to be admitted. Otherwise discharge home and treat for COPD exacerbat ion ED Course ED Clinical Impression 1. Chronic bronchitis, unspecified chronic bronchitis type (HCC) 2. Dyspnea, unspecified type Jason Guillory DO 05/10/[address] Angio Chest Final Result 1. No CT evidence of thromboembolic disease. 2. Bilateral subsegmental atelectasis. READING SITE: [facility] XR Chest 2 views (PA and lateral) Final Result No focal consolidation. Left basilar atelectatic opacity likely related to atelectasis READING SITE: [facility] discussed the CT results with the patient and she does feel comfortable disch arge home Evan Henry MD 05/10/17 1640 documented in this encounter Plan of Treatment Care Team Description [place] [address] [place] [id number] [phone] 02/29/2020 Office Visit Urology documented as of this encounter Procedures Comments Procedure Name Priority Date/Time Associated Diag nosis CT ANGIO CHEST STAT 05/10/2017 3:26 PM CDT ED PROCEDURE BASIC - ECG Routine 05/10/2017 INTERPRET 2:50 PM CDT XR CHEST 2 VIEWS (PA AND STAT 05/10/2017 LATERAL) 12:05 PM CDT TROPONIN STAT 05/10/2017 11:50 AM CDT D DIMER STAT 05/10/2017 11:50 AM CDT COMPREHENSIVE METABOLIC STAT 05/10/2017 PANEL 11:50 AM CDT CBC AND DIFF (MANUAL DIFF STAT 05/10/2017 IF NECESSARY) 11:50 AM CDT ECG STAT 05/10/2017 11:18 AM CDT documented in this encounter Results * CT Angio Chest (05/10/2017 3:26 PM CDT) Specimen Impressions Performed At 1. No CT evidence of thromboembolic disease. JUDY N 2. Bilateral subsegmental atelectasis. READING SITE: [facility] Narrative Performed At Patient: ISIAH BENÍTEZ Sex#: F # 1950 Jose#: [id number] Location: [facility] ED SED-27 Procedure Requested: [id number] CT ANGIO CHEST Reason for Exam: soa Exam Ordered: 05/10/2017 13 45 Exam Date/Time: 05/10/2017 152 6 Begin exam date/time: 05/10/[address] ANGIO CHEST INDICATION: soa. COMPARISON STUDY: Chest radiograph woodrow ier same day. Chest CT 06/29/2016. TECHNIQUE: Following the uneventful a dministration of a bolus of intravenous contrast 77 cc Omnipaque 35 0, thin section axial CT images were obtained through the chest using t pulmonary embolus protocol. Bilateral oblique thin section multipla jose reconstructions were obtained through the pulmonary arteries. Coronal MIP images were also obtained. Three-dimensional images of the pulmona ry arteries were constructed on a separate workstation and were reviewed. FINDINGS: Pulmonary Arteries: No evidence of pulm onary thromboembolic disease. No pulmonary hypertension or right ventric ular strain. Heart and Mediastinum: The visualized p ortions of the thyroid gland are normal in size and attenuation. No axil dong or supraclavicular lymphadenopathy. No mediastinal, hilar or retrocrural lymphadenopathy. The heart and pericardium are within no rmal limits. The great vessels of the thorax are normal. Lungs and Airways: Lingular and bilater al lower lobe linear subsegmental atelectasis. Lingular calcification fro m old granulomatous disease. No pulmonary mass or consolidation. No end oluminal lesion. Pleura: The pleural spaces are normal. Abdomen: The visualized abdominal organ s demonstrate no abnormality. Bones and Soft Tissues: Mild degenerati ve changes in the thoracic spine. The soft tissues of the chest wall are within normal limits. INCIDENTAL FINDINGS: 1. Degenerative changes in the spine. Procedure Note Interface, Rad Results In - 05/10/2017 3:37 PM CDT Patient: ISIAH BENÍTEZ Sex#: Paulina # 1950 Jose#: [id number] Location: [facility] Procedure Requested: [id number] CT ANGIO CHEST Reason for Exam: soa Exam Ordered: 05/10/2017 1345 Exam Date/Time: 05/10/2017 1526 Begin exam date/time: 05/10/[address] ANGIO CHEST INDICATION: soa. COMPARISON STUDY: Chest radiograph earlier same day. Chest CT 06/29/2016. TECHNIQUE: Following the uneventful administration of a bolus of intravenous contrast 77 cc Omnipaque 350, thin section axial CT images were obtained through the chest using the pulmonary embolus protocol. Bilateral oblique thin section multiplanar reconstructions were obtained through the pulmonary arteries. Coronal MIP images were also obtained. Three-dimensional images of the pulmonary arteries were constructed on a separate workstation and were reviewed. FINDINGS: Pulmonary Arteries: No evidence of pulmonary thromboembolic disease. No pulmonary hypertension or right ventricular strain. Heart and Mediastinum: The visualized portions of the thyroid gland are normal in size and attenuation. No axillary or supraclavicular lymphadenopathy. No mediastinal, hilar or retrocrural lymphadenopathy. The heart and pericardium are within normal limits. The great vessels of the thorax are normal. Lungs and Airways: Lingular and bilateral lower lobe linear subsegmental atelectasis. Lingular calcification from old granulomatous disease. No pulmonary mass or consolidation. No endoluminal lesion. Pleura: The pleural spaces are normal. Abdomen: The visualized abdominal organs demonstrate no abnormality. Bones and Soft Tissues: Mild degenerative changes in the thoracic spine. The soft tissues of the chest wall are within normal limits. INCIDENTAL FINDINGS: 1. Degenerative changes in the spine. IMPRESSION 1. No CT evidence of thromboembolic dise ase. 2. Bilateral subsegmental atelectasis. READING SITE: [facility] Performing Organization Address City/State/Zipcode Ph one Edgar SIMS * ED Procedure Basic - ECG Interpret (05/10/2017 2:50 PM CDT) Narrative Performed At Jason Guillory DO 05/10/2017 2:50 P M ECG Interpret Date/Time: 05/10/2017 2:47 PM Performed by: JASON GUILLORY Authorized by: JASON GUILLORY ECG reviewed by ED Physician in the abs ence of a pelota maker: yes Previous ECG: Previous ECG: Compared to current Comparison ECG info: 02/11/17 Similarity: No change Interpretation: Interpretation: normal Rate: ECG rate: 116 ECG rate assessment: tachycardic Rhythm: Rhythm: sinus tachycardia Ectopy: Ectopy: none QRS: QRS axis: Normal Conduction: Conduction: normal ST segments: ST segments: Normal * XR Chest 2 views (PA and lateral) (05/10/2017 12:05 PM CDT) Specimen Impressions Performed At No focal consolidation. Left basilar atelectatic opac felicia SIMS likely related to atelectasis READING SITE: [facility] Narrative Performed At Patient: ISIAH BENÍTEZ Sex#: F # 1950 Jose#: [id number] Location: [facility] SED-27 Procedure Requested: [id number] XR CHEST 2 VIEWS (PA AND LATERAL) Reason for Exam: soa Exam Ordered: 05/10/2017 11 44 Exam Date/Time: 05/10/2017 120 5 Begin exam date/time: 05/10/2017 115 0 XR CHEST 2 VIEWS (PA AND LATERAL) INDICATION: soa. COMPARISON STUDY: 02/11/2017. FINDINGS: Life Support Devices: None. Lungs: Left bandlike basilar opacity. N o focal consolidation.. Pleura: No pleural effusion or pneumoth orax. Heart and Mediastinum: Stable heart and mediastinum. Bones and soft tissues: Stable regional skeleton. Procedure Note Interface, Rad Results In - 05/10/2017 1:04 PM CDT Patient: ISIAH BENÍTEZ Sex#: Paulina # 1950 Jose#: [id number] Location: [facility] ED SED-27 Procedure Requested: [id number] XR CHEST 2 VIEWS (PA AND LATERAL) Reason for Exam: soa Exam Ordered: 05/10/2017 1144 Exam Date/Time: 05/10/2017 1205 Begin exam date/time: 05/10/2017 1150 XR CHEST 2 VIEWS (PA AND LATERAL) INDICATION: soa. COMPARISON STUDY: 02/11/2017. FINDINGS: Life Support Devices: None. Lungs: Left bandlike basilar opacity. No focal consolidation.. Pleura: No pleural effusion or pneumothorax. Heart and Mediastinum: Stable heart and mediastinum. Bones and soft tissues: Stable regional skeleton. IMPRESSION No focal consolidation. Left basilar atelectatic opacity likely related to atelectasis READING SITE: [facility] Performing Organization Address [facility] one Number LEVI * Troponin (05/10/2017 11:50 AM CDT) Troponin <0.01 0.00 - 0.03 ng/mL [facility] Comment: [facility] Troponin Value [facility] Interpretation 0.00 - 0.03 Healthy 0.04 - 0.12 Increased Cardiac Risk >0.12 Myocardial Infarction Troponin may not become elevated until 6 to 8 hours after onset of symptoms. Specimen Blood Performing Organization Address City/[facility] Ph one Number [facility] [address] [place] [address] [facility] [address] [place] [address], [facility] * D Dimer (05/10/2017 11:50 AM CDT) D Dimer 1.85 (H)Comment: Cutoff value 0.00 - 0.40 ug/m L [facility] for exclusion of venous FEU [facility] AG[facility] thromboembolism is <0.40 ug/mL [facility] FEU. Specimen Blood Performing Organization Address City/State/Zipcode Ph one Number [facility] [address] [facility] [place] [id number] [facility] [address] [facility] [place] [facility] [place] [address], [facility] * Comprehensive Metabolic Panel (05/10/2017 11:50 AM CDT) Pathologist [facility] Sodium 140 133 - 147 MEQ/L [facility] Potassium 4.0 3.5 - 5.3 MEQ/L [facility] Chloride 102 96 - 112 MEQ/L [facility] Carbon Dioxide 29 20 - 32 MEQ/L [facility] Anion Gap 9 5 - 17 [facility] Calcium 8.9 8.4 - 10.5 mg/dL [facility] Glucose 158 (H) 70 - 100 mg/dL [facility] Protein Total 7.3 6.0 - 8.2 g/dL [facility] Serum [facility] Albumin 4.0 3.5 - 5.0 g/dL [facility] Alkaline 99 42 - 140 IU/L [facility] Phosphatase [facility] Alanine 28 13 - 69 IU/L [facility] Aminotransferas [facility] e [facility] Aspartate 22 15 - 46 IU/L [facility] Aminotransferas [facility] e [facility] Bilirubin Total 0.3 0.2 - 1.3 mg/dL [facility] Blood Urea 15 7 - 26 mg/dL [facility] Nitrogen AL[facility]ERT [facility] Creatinine 0.8 0.4 - 1.1 mg/dL [facility] eGFR Female AA 87 60 - 200 [facility] Comment: [facility] Chronic Kidney Disease less [facility] than 60 mL/min/1.73 sq.m Kidney failure less than 15 mL/min/1.73 sq.m eGFR Female 72 60 - 200 [facility] Non-AA Comment: [facility] AGUST[facility] Chronic Kidney Disease less [facility] than 60 mL/min/1.73 sq.m Kidney failure less than 15 mL/min/1.73 sq.m Specimen Blood Performing Organization Address City/State/[facility] Ph one Number [facility] [address] [place] [address] [facility] [address] [facility] [place] [address], [facility] * CBC and Diff (manual diff if necessary) (05/10/2017 11:50 AM CDT) WBC 10.17 4.00 - 11.00 TH/uL [facility] RBC 3.51 (L) 4.00 - 5.00 MIL/uL [facility] Hemoglobin 11.5 (L) 12.0 - 15.0 g/dL [facility] ALBERT [facility] Hematocrit 36 36 - 45 % [facility] MCV 104 (H) 80 - 99 fL [facility] MCH 33 27 - 34 pg [facility] MCHC 32 32 - 36 % [facility] RDW 14.0 9.0 - 14.5 % [facility] Platelet Count 152 140 - 400 TH/uL [facility] MPV 9.9 9.4 - 12.3 fL [facility] % Neutrophils 67 45 - 78 % [facility] %Lymphocytes 22 15 - 47 % [facility] %Monocytes 8 0 - 12 % [facility] %Eosinophils 3 0 - 7 % [facility] %Basophils 0 0 - 2 % [facility] # Granulocytes 6.85 (H) 1.7 - 6.8 TH/uL [facility] # Lymphocytes 2.19 1.0 - 3.3 TH/uL [facility] # Monocytes 0.84 0.2 - 0.9 TH/uL [facility] # Eosinophils 0.26 0.0 - 0.4 TH/uL [facility] # Basophils 0.03 0.0 - 0.1 TH/uL [facility] Specimen Blood Performing Organization Address City/State/Zipcode Ph one Number [facility] [address] [place] [address] [facility] [address] [place] [facility] [place] [address], [facility] * Electrocardiogram (ECG) (05/10/2017 11:18 AM CDT) Specimen Narrative Performed At [facility] ED Test Date: 2017-05-10 Pat Name: ISIAH BENÍTEZ Department: ERS Room: SED 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 : 1950 Requested By: JASON GUILLORY Order Number: [id number] Jackie MD: Measurements Intervals Chauvin Rate: 116 P: 57 VA: 144 QRS: 59 QRSD: 100 T: 44 QT: 340 QTc: 473 Interpretive Statements SINUS TACHYCARDIA Procedure Note Interface, External Ris In - 05/10/2017 11:23 AM CDT [facility] ED Test Date: 2017-05-10 Pat Name: ISIAH BENÍTEZ Department: ERS Room: SED Gender: Female 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: [id number] : 1950 Requested By: JASON GUILLORY Order Number: [id number] Reading MD: Measurements Intervals Chauvin Rate: 116 P: 57 VA: 144 QRS: 59 QRSD: 100 T: 44 QT: 340 QTc: 473 Interpretive Statements SINUS TACHYCARDIA Performing Organization Address City/State/[facility] Ph one Number TRACEMASTER documented in this encounter Visit Diagnoses Diagnosis Chronic bronchitis, unspecified chronic bronchitis type (HCC) Dyspnea, unspecified type documented in this encounter Administered Medications Action Date Dose Rate Site Medication Order MAR Action 05/10/2017 11:55 AM CDT 50 mcg fentaNYL (SUBLIMAZE) injection 50 mcg Given 50 mcg, Intravenous, Once, Wed05/10/17 at 1147, For 1 dose, Administer over 2 minutes; max dose for IVP is 2 mcg/kg. Note: Limit does not apply to patients who may be tolerant to opioid therapy o r on continuous IV or PO opiate therapy., 05/10/2017 3:27 PM CDT 77 mL iohexol (OMNIPAQUE) 350 mg iodine/mL Given injection 1-500 mL 1-500 mL, Intravenous, Once in imaging, contrast, Starting Wed05/10/17 at 1526, For 1 dose 05/10/2017 12:37 PM CDT 3 mL ipratropium-albuterol (DUO-NEB) 0.5-3 Given mg/3 mL nebulizer solution 3 mL 3 mL, Inhalation, Once, Wed05/10/17 at 1147, For 1 dose 05/10/2017 12:50 PM CDT 4 mg morphine injection 4 mg Given 4 mg, Intravenous, Once, Wed05/10/17 at 1235, For 1 dose, Administer over 5 min ; max dose of IVP is 10 mg. Note: Limit does not apply to patients who may be tolerant to opioid therapy or on continuous IV or PO opiate therapy., 05/10/2017 4:11 PM CDT 4 mg morphine injection 4 mg Given 4 mg, Intravenous, Once, Wed05/10/17 at 1607, For 1 dose, Administer over 5 min ; max dose of IVP is 10 mg. Note: Limit does not apply to patients who may be tolerant to opioid therapy or on continuous IV or PO opiate therapy., documented in this encounter
--- OUTSIDE RECORDS SUMMARY | 2019-11-28 22:28 | XMS REPORT | Encounter Summary ---
Author Author [facility] Organization [facility] Address Unknown Phone Unavailable Care Team Providers Care Retail Warehouse Associate Name Role Phone Ebony Sharp MD PCP Encounter Details Care Team Description Date Type Department Adelaida Olivas MD [address] [facility] [address] [place] [address] 04/19/2017 [facility] [address] [facility] [address] [place], [place] [id number] Social History Date Tobacco Use Types Packs/Day [...] Clinic Note - Adelaida Olivas MD - 04/19/2017 8:51 AM CDT Phone Note Call from Pharmacy Caller: Felisha Summary of call: Aaron is calling because the patient is allergic to Bactrim. He would like to know if Dr. Olivas will prescribe something else? Please call Aaron back at [phone] Call taken by: Daphne Roa on April 19, 2017 8:51 AM Follow-up for Phone Call Follow-up Details: I spoke with Aaron and per Brendon the patient can have Augment in. Follow-up by: Rg Lopez on April 19, 2017 9:24 AM documented in this encounter Plan of Treatment Care Team Description Date [place] [address] [place] [address] [phone] 02/29/2020 Office Visit Urology documented as of this encounter Visit Diagnoses Not on filedocumented in this encounter Additional Health Concerns Resolved Time Infection Noted Time 04/19/2018 12:13 PM CDT Influenza 08/30/2017 10:13 AM ADMINISTRATIVE NURSING SUPERVISOR 08/30/2019 1:09 PM ADMINISTRATIVE NURSING SUPERVISOR Influenza - Rule Out 08/30/2019 11:32 AM ADMINISTRATIVE NURSING SUPERVISOR 09/17/2019 8:17 AM ADMINISTRATIVE NURSING SUPERVISOR RSV 08/31/2019 6:35 PM ADMINISTRATIVE NURSING SUPERVISOR documented as of this encounter
--- OUTSIDE RECORDS SUMMARY | 2019-11-28 22:28 | XMS REPORT | Encounter Summary ---
Author Author [facility] Organization [facility] Address Unknown Phone Unavailable Care Team Providers Care Milk Receiver Name Role Phone Ebony Sharp MD PCP Encounter Details Care Team Description Date Type Department Adelaida Olivas MD [address] [facility] [address] [place], [place] [id number] 04/29/2017 Hist-Transcript [facility] Encounter Specialists [address] [facility] [address] [place], [place] [address] Social History Date Tobacco Use Types Packs/Day [...] encounter Progress Notes * Juarez Noble - 04/29/2017 3:48 PM CDT - History of Present Illness Presents today for evaluation of her left lower extremity. She is 20 days out fr om surgery on her left ankle. She was in a nonweightbearing cast. She was walkin g in the cast with her walker. Examination Physical examination reveals a 66-year-old woman who is obviously walking on her left lower extremity. Her skin is otherwise intact. Her surgical incision is otherwise very well healed. There is no overt evidence of delayed wound healing . She has a negative Homans sign. Impression LEFT 3RD TOE NONDISPLACED FRACTURE OF DISTAL PHALANX ([id number]) LEFT ANKLE STRESS FRACTURE ([id number]) Status post tibiotalar fusion with interval signs of healing. Plan At this point, we will plan to allow her to be nonweightbearing in a short leg c ast. I will see her back in three weeks for reevaluation. She was place in a well fitting, well padded short leg non-weight bearing fiberg lass cast on her Left lower extremity. She was instructed on cast precautions a nd to call if there are any concerns. Family History Summary: Reviewed history Last on 01/19/2017 and no changes required:05/09/2017 No Known Family History - Entered On: 05/26/2016 Past Medical History High Blood Pressure Arthritis [...] 1 po q daily VITAMIN D (ERGOCALCIFEROL) 57562 UNIT CAPS (ERGOCALCIFEROL) 1 po q weekly OXYCONTIN 10 MG T12A (OXYCODONE HCL) 1 tablet PO BID PRN OXYCODONE HCL 10 MG TABS (OXYCODONE HCL) one PO Q 6 hours prn pain BACTRIM DS 800-160 MG TABS (SULFAMETHOXAZOLE-TRIMETHOPRIM) 1 tab q 12 hours MS CONTIN 15 MG CR-TABS (MORPHINE SULFATE) Take 1 tablet every 12 hours as neede d for pain Allergies: LISINOPRIL (LISINOPRIL) GLUCOPHAGE (METFORMIN HCL) SULFA (SULFADIAZINE) I have reviewed and concur with the medical, social and family histories collect ed and entered on my behalf, on 04/29/2017. -Adelaida Olivas MD, April 29, 2017 2:43 PM Prescriptions: OXYCODONE HCL 10 MG TABS (OXYCODONE HCL) one PO Q 6 hours prn pain #40 x 0 Entered by: Sharona Scott Authorized by: Adelaida Olivas MD Signed by: Sharona Scott on 04/29/2017 Method used: Print then Give to Patient RxID: [id number] MS CONTIN 15 MG CR-TABS (MORPHINE SULFATE) Take 1 tablet every 12 hours as neede d for pain #40 Undefined x 0 Entered by: Sharona Scott Authorized by: Adelaida Olivas MD Signed by: Sharona Scott on 04/29/2017 Method used: Print then Give to Patient RxID: [id number] Review of Systems General: Complains of sweats, fatigue. Eyes: Complains of light sensitivity, halos around lights. Ears/Nose/Throat: Complains of difficulty swallowing. Cardiovascular: Complains of shortness of breath with exertion. Respiratory: Complains of chest discomfort, shortness of breath, wheezing. Gastrointestinal: Denies loss of appetite, nausea, vomiting, hemorrhoids. Genitourinary: Complains of urinary frequency. Musculoskeletal: Complains of joint pain, loss of strength. Skin: Denies night sweats, dryness, suspicious lesions, changes in nail beds, un usual hair distribution, changes in color of skin, poor wound healing. Neurologic: Complains of numbness, falling down, tingling. Psychiatric: Complains of anxiety, depression. Endocrine: Complains of excessive thirst. Heme/Lymphatic: Denies abnormal bruising, fevers. Allergic/Immunologic: Complains of seasonal allergies. Vital Signs Ht: 62 in. Wt: 236 lbs. T: 98.3 deg F. BMI: 43.32 She was encourage to talk with her primary care provider about weight management . Radiographs: Three views, Ap, lateral and mortise radiographic views of the left ankle demons trates what appears to be healing tibiotalar fusion. I would like her to return in 2 weeks and obtain a non-weight bearing x-ray of t heir left ankle. She was place in a well fitting, well padded short leg non-weight bearing fiberg lass cast on her Left lower extremity. She was instructed on cast precautions a nd to call if there are any concerns. Orders from current office visit: Ankle x-ray 3 views PQRS 128a PQRS 226NS PQRS 317na PQRS 130 Measure 109 Apply short leg cast below knee Short leg cast supplies adult * I,Sharona Scott, have scribed the history and exam for, and in the presence of Dr. Adelaida Olivas MD. I Dr. Adelaida Olivas MD have reviewed the scribed history and exam, no changes are required. Signed by Adelaida Olivas MD on April 29, 2017 at 2:37 PM Signed by Adelaida Olivas MD on May 05, 2017 at 10:19 AM X-Ray Report Three views, Ap, lateral and mortise radiographic views of the left ankle demons trates what appears to be healing tibiotalar fusion. Signed by Adelaida Olivas MD on May 05, 2017 at 10:19 AM Cast Note She was place in a well fitting, well padded short leg non-weight bearing fiberg lass cast on her Left lower extremity. She was instructed on cast precautions a nd to call if there are any concerns. documented in this encounter Plan of Treatment Care Team Description Date [place] [address] [place] [address] [phone] 02/29/2020 Office Visit Urology documented as of this encounter Visit Diagnoses Not on filedocumented in this encounter Additional Health Concerns Resolved Time Infection Noted Time 04/19/2018 12:13 PM CDT Influenza 08/30/2017 10:13 AM PIPE WRAPPING MACHINE OPERATOR 08/30/2019 1:09 PM PIPE WRAPPING MACHINE OPERATOR Influenza - Rule Out 08/30/2019 11:32 AM PIPE WRAPPING MACHINE OPERATOR 09/17/2019 8:17 AM PIPE WRAPPING MACHINE OPERATOR RSV 08/31/2019 6:35 PM PIPE WRAPPING MACHINE OPERATOR documented as of this encounter
--- OUTSIDE RECORDS SUMMARY | 2019-11-28 22:28 | XMS REPORT | Encounter Summary ---
Author Author [facility] Organization [facility] Address Unknown Phone Unavailable Care Team Providers Care Aged Or Disabled Care Worker Name Role Phone Ebony Sharp MD PCP Reason for Visit * Reason Comments Follow-up Margot lt 04-15-17 HKW TVX: Appt. Reminder (04/27/2017 06:18 PM) Phone Call - Message Delivered (X=Answering [place]) Encounter Details Care Team Description Date Type Department Adelaida Olivas MD [address] [facility] [address] [place] [address] [phone] 04/29/2017 Hist[facility]Appointmen [facility] [address] [facility] [address] [place] [address] Social History Date Tobacco Use Types Packs/Day [...] Description Date [place] [address] [place] [address] [phone] 02/29/2020 Office Visit Urology documented as of this encounter Visit Diagnoses Not on filedocumented in this encounter Additional Health Concerns Resolved Time Infection Noted Time 04/19/2018 12:13 PM CDT Influenza 08/30/2017 10:13 AM HUMANITIES AND LANGUAGES PROFESSOR documented as of this encounter
--- OUTSIDE RECORDS SUMMARY | 2019-11-28 22:28 | XMS REPORT | Encounter Summary ---
Author Author [facility] Organization [facility] Address Unknown Phone Unavailable Care Team Providers Care Manager Clinical Informatics Name Role Phone Ebony Sharp MD PCP Reason for Visit * Reason Comments Follow-up Margot lt 04-29-17 HKW TVX: Appt. Reminder (05/11/2017 06:19 PM) Phone Call - Message Delivered (X=Answering [place]) Encounter Details Care Team Description Date Type Department Adelaida Olivas MD [address] [facility] [address] [place] [address] [phone] 05/13/2017 Hist[facility]Appointmen [facility] [address] [facility] [address] [place] [address] Social History Date Tobacco Use Types Packs/Day [...] Description Date [place] [address] [place] [address] [phone] 02/29/2020 Office Visit Urology documented as of this encounter Visit Diagnoses Not on filedocumented in this encounter Additional Health Concerns Resolved Time Infection Noted Time 04/19/2018 12:13 PM CDT Influenza 08/30/2017 10:13 AM MILITARY PROFESSIONAL documented as of this encounter
--- OUTSIDE RECORDS SUMMARY | 2019-11-28 22:28 | XMS REPORT | Encounter Summary ---
Author Author [facility] Organization [facility] Address Unknown Phone Unavailable Care Team Providers Care Tool Clerk Name Role Phone Ebony Sharp MD PCP Encounter Details Care Team Description Date Type Department Adelaida Olivas MD [address] [facility] [address] [place], [place] [id number] 04/15/2017 Hist-Transcript Aide Orthopaedi c ion Encounter Specialists [address] [facility] [address] [place], [place] [id number] Social History Date Tobacco Use Types Packs/Day [...] encounter Progress Notes * Juarez Noble - 04/15/2017 6:28 PM CDT - History of Present Illness Patient presents today for follow up of her left ankle surgery. She has been in a post op splint since her surgery. She states that the pain is unbearable with the Oxycodone 5mg. Examination Physical examination reveals a 66-year-old woman who is able to flex and extend her left knee with minimal complaints of pain. Her skin is otherwise intact. S he has a nice palpable dorsalis pedis pulse. She has a negative Homans sign. T here is no overt evidence of delayed wound healing throughout her surgical incis ions. Impression NONUNION FRACTURE ([id number]) Status post tibiotalar arthrodesis, doing reasonably well. Plan At this point, we did have a long discussion regarding her current narcotic use. We did discuss the potential for more chronic medications rather than short-te rm medications. We will place her on OxyContin, which we fully intend to wean d own on over the next several months. She was place in a well fitting, well padded short leg non-weight bearing fiberg lass cast on her Left lower extremity. She was instructed on cast precautions a nd to call if there are any concerns. Past Medical History High Blood Pressure Arthritis Osteoporosis COPD / Emphysema Diabetes Surgical History Surgical history includes Appendectomy Tonsillectomy Section(1) Gallbladder(laparoscopic) D & C(single) Hysterectomy(complete) Total Knee Replacement(bilateral) Arthroscopic Knee(bilateral). Left ankle arthroscopy,open fusions,tendons release,subtalar debridement 6. Risk Factors Tobacco Use: Former smoker Does [...] 1 po q daily VITAMIN D (ERGOCALCIFEROL) 06167 UNIT CAPS (ERGOCALCIFEROL) 1 po q weekly OXYCONTIN 10 MG T12A (OXYCODONE HCL) 1 tablet PO BID PRN OXYCODONE HCL 10 MG TABS (OXYCODONE HCL) one PO Q 6 hours prn pain BACTRIM DS 800-160 MG TABS (SULFAMETHOXAZOLE-TRIMETHOPRIM) 1 tab q 12 hours Allergies: LISINOPRIL (LISINOPRIL) GLUCOPHAGE (METFORMIN HCL) SULFA (SULFADIAZINE) I have reviewed and concur with the medical, social and family histories collect ed and entered on my behalf, on 04/15/2017. -Adelaida Olivas MD, April 24, 2017 5:13 PM Prescriptions: BACTRIM DS 800-160 MG TABS (SULFAMETHOXAZOLE-TRIMETHOPRIM) 1 tab q 12 hours #20 [Unspecified] x 0 Entered by: Kayley Mercado Authorized by: Adelaida Olivas MD Signed by: Kayley Mercado on 04/15/2017 Method used[facility] [address] [place] [address] Ph: [phone] Fax: [phone] RxID: [id number] OXYCONTIN 10 MG T12A (OXYCODONE HCL) 1 tablet PO BID PRN #30 x 0 Entered by: Kayley Mercado Authorized by: Adelaida Olivas MD Signed by: Kayley Mercado on 04/15/2017 Method used: Print then Give to Patient RxID: [id number] OXYCODONE HCL 10 MG TABS (OXYCODONE HCL) one PO Q 6 hours prn pain #60 x 0 Entered by: Kayley Mercado Authorized by: Adelaida Olivas MD Signed by: Kayley Mercado on 04/15/2017 Method used: Print then Give to Patient RxID: [id number] OXYCONTIN 10 MG T12A (OXYCODONE HCL) 1 tablet PO BID PRN #0 x 0 Entered by: Kayley Mercado Authorized by: Adelaida Olivas MD Signed by: Kayley Mercado on 04/15/2017 Method used: Print then Give to Patient RxID: [id number] OXYCODONE HCL 10 MG TABS (OXYCODONE HCL) one PO Q 6 hours prn pain #40 Tablet U n x 0 Entered by: Kayley Mercado Authorized by: Adelaida Olivas MD Signed by: Kayley Mercado on 04/15/2017 Method used: Print then Give to Patient RxID: [id number] Vital Signs Ht: 62 in. Wt: 236 lbs. T: 98.5 deg F. T site: tympanic BMI: 43.32 She was encourage to talk with her primary care provider about weight management . Radiographs: Three views, Ap, lateral and oblique radiographic views of the left ankle demons trating right tibiotalar arthrodesis in reasonable alignment. I would like her to return in 2 weeks and obtain a x-ray of their left ankle. She was place in a well fitting, well padded short leg non-weight bearing fiberg lass cast on her Left lower extremity. She was instructed on cast precautions a nd to call if there are any concerns. Orders from current office visit: Ankle x-ray 3 views Apply short leg cast below knee Short leg cast supplies adult PQRS 128a PQRS 226NS PQRS 317na PQRS 130na Measure 109 * ? I,Kayley Mercado, have scribed the history and exam for, and in the presence of Dr. Adelaida Olivas MD. I Dr. Adelaida Olivas MD have reviewed the scribed history and exam, no changes are required. Signed by Adelaida Olivas MD on April 15, 2017 at 6:03 PM Signed by Adelaida Olivas MD on April 19, 2017 at 9:55 AM X-Ray Report Three views, Ap, lateral and oblique radiographic views of the left ankle demons trating right tibiotalar arthrodesis in reasonable alignment. Signed by Adelaida Olivas MD on April 19, 2017 at 9:55 AM Cast Note She was place in a well fitting, well padded short leg non-weight bearing fiberg lass cast on her Left lower extremity. She was instructed on cast precautions a nd to call if there are any concerns. documented in this encounter Plan of Treatment Care Team Description Date [place] [address] [place] [address] [phone] 02/29/2020 Office Visit Urology documented as of this encounter Visit Diagnoses Not on filedocumented in this encounter Additional Health Concerns Resolved Time Infection Noted Time 04/19/2018 12:13 PM CDT Influenza 08/30/2017 10:13 AM RADIATION CONTROL WORKER 08/30/2019 1:09 PM RADIATION CONTROL WORKER Influenza - Rule Out 08/30/2019 11:32 AM RADIATION CONTROL WORKER 09/17/2019 8:17 AM RADIATION CONTROL WORKER RSV 08/31/2019 6:35 PM RADIATION CONTROL WORKER documented as of this encounter
--- OUTSIDE RECORDS SUMMARY | 2019-11-28 22:28 | XMS REPORT | Encounter Summary ---
Author Author [facility] Organization [facility] Address Unknown Phone Unavailable Care Team Providers Care Home Lending Officer Name Role Phone Ebony Sharp MD PCP Encounter Details Care Team Description Date Type Department Ebony Sharp MD [address] [facility] [address] [place] [address] [phone] 04/20/2017 Documentation [facility] (walk-in clinic) [address] [facility] [address] [place], [place] [id number] Social History Date Tobacco Use Types Packs/Day [...] Description Date [place] [address] [place] [address] [phone] 02/29/2020 Office Visit Urology documented as of this encounter Visit Diagnoses Not on filedocumented in this encounter
--- OUTSIDE RECORDS SUMMARY | 2019-11-28 22:28 | XMS REPORT | Encounter Summary ---
Author Author [facility] Organization [facility] Address Unknown Phone Unavailable Care Team Providers Care President + Publisher Name Role Phone Ebony Sharp MD PCP Encounter Details Care Team Description Date Type Department Francoise Hagan, RN 04/13/2017 Documentation [facility] y [facility] (walk-in clinic) [address] [facility] [address] [place] [address] Social History Date Tobacco Use Types Packs/Day [...] Description Date [place] [address] [place] [address] [phone] 02/29/2020 Office Visit Urology documented as of this encounter Visit Diagnoses Not on filedocumented in this encounter
--- OUTSIDE RECORDS SUMMARY | 2019-11-28 22:28 | XMS REPORT | Encounter Summary ---
Author Author [facility] Organization [facility] Address Unknown Phone Unavailable Care Team Providers Care Pizza Delivery Name Role Phone Ebony Sharp MD PCP Encounter Details Care Team Description Date Type Department Ebony Sharp MD [address] [facility] [address] [place] [address] [phone] 05/11/2017 Documentation [facility] (walk-in clinic) [address] [facility] [address] [place], [place] [address] Social History Date Tobacco Use Types Packs/Day [...] Description Date [place] [address] [place] [address] [phone] 02/29/2020 Office Visit Urology documented as of this encounter Visit Diagnoses Not on filedocumented in this encounter
--- OUTSIDE RECORDS SUMMARY | 2019-11-28 22:28 | XMS REPORT | Encounter Summary ---
Author Author [facility] Organization [facility] Address Unknown Phone Unavailable Care Team Providers Care Meat Team Lead Name Role Phone Ebony Sharp MD PCP Encounter Details Care Team Description Date Type Department Francoise Hagan RN 04/13/2017 Telephone [facility] (walk-in clinic) [address] [facility] [address] [place], [place] [id number] Social History Date Tobacco Use Types Packs/Day [...] Encounter - Francoise Hagan RN - 04/13/2017 4:57 PM CDT Documented in error. TAZ RNCC documented in this encounter Plan of Treatment Care Team Description Date [place] [address] [place] [address] [phone] 02/29/2020 Office Visit Urology documented as of this encounter Visit Diagnoses Not on filedocumented in this encounter
--- OUTSIDE RECORDS SUMMARY | 2019-11-28 22:28 | XMS REPORT | Encounter Summary ---
Author Author [facility] Organization [facility] Address Unknown Phone Unavailable Care Team Providers Care Warehouser Name Role Phone Ebony Sharp MD PCP Encounter Details Care Team Description Date Type Department Adelaida Olivas MD [address] [facility] [address] [place], [place] [id number] 05/13/2017 Hist-Transcript Aide Orthopaedi c ion Encounter Specialists [address] [facility] [address] [place], [place] [id number] Social History Date Tobacco Use Types Packs/Day [...] encounter Progress Notes * Juarez Noble - 05/13/2017 3:15 PM CDT - History of Present Illness Presents today for evaluation of her left lower extremity. She is 34 days out fr om surgery. She still having swelling on her left ankle. She is still taking the pain medication. Examination Physical examination reveals a pleasant woman who is able to plantar flex and do rsiflex her midfoot with minimal complaints of pain. Her skin is intact. There is no overt evidence of delayed wound healing. She has a nice palpable dorsalis pedis pulse. Impression PSEUDARTHROSIS AFTER FUSION OR ARTHRODESIS (CLA21-C71.0) LEFT ANKLE PRIMARY OSTEOARTHRITIS ([id number]) Healing tibiotalar arthrodesis. Plan At this point, we did discuss potential treatment options which will include non -weightbearing in a high-tide walking boot. I will see her back this is the cou rse if she wishes to take. She was place in a well fitting, well padded short leg non-weight bearing fiberg lass cast on her Left lower extremity. She was instructed on cast precautions a nd to call if there are any concerns. Past Medical History High Blood Pressure Arthritis Osteoporosis COPD / Emphysema Diabetes Surgical History Surgical history includes Appendectomy Tonsillectomy Section(1) Mabel brighter(laparoscopic) D & C(single) Hysterectomy(complete) Total Knee Replacement(bilateral) [...] 1 po q daily VITAMIN D (ERGOCALCIFEROL) 43599 UNIT CAPS (ERGOCALCIFEROL) 1 po q weekly [...] (OXYCODONE HCL) 1 tablet PO BID PRN Allergies: LISINOPRIL (LISINOPRIL) GLUCOPHAGE (METFORMIN HCL) SULFA (SULFADIAZINE) I have reviewed and concur with the medical, social and family histories collect ed and entered on my behalf, on 05/13/2017. -Adelaida Olivas MD, May 13, 2017 3:11 PM Prescriptions: OXYCODONE HCL 10 MG TABS (OXYCODONE HCL) one PO Q 6 hours prn pain #40 x 0 Entered by: Sharona Scott Authorized by: Adelaida Olivas MD Signed by: Sharona Scott on 05/13/2017 Method used: Print then Give to Patient RxID: [id number] OXYCONTIN 10 MG T12A (OXYCODONE HCL) 1 tablet PO BID PRN #40 x 0 Entered by: Sharona Scott Authorized by: Adelaida Olivas MD Signed by: Sharona Scott on 05/13/2017 Method used: Print then Give to Patient RxID: [id number] Vital Signs Ht: 62 in. Wt: 236 lbs. T: 97.4 deg F. T site: tympanic BMI: 43.32 She was encourage to talk with her primary care provider about weight management . Radiographs: Three views, Ap, lateral and mortise radiographic views of the left ankle demons trates what appears to be healing tibiotalar arthrodesis. I [...] PQRS 317na PQRS 130 Measure 109 * [MU CORE Checklist] I,Sharona Scott, have scribed the history and exam for, and in the presence of Dr. Adelaida Olivas MD. I Dr. Adelaida Olivas MD have reviewed the scribed history and exam, no changes are required. Signed by Adelaida Olivas MD on May 13, 2017 at 3:08 PM Signed by Adelaida Olivas MD on May 19, 2017 at 12:19 PM X-Ray Report Three views, Ap, lateral and mortise radiographic views of the left ankle demons trates what appears to be healing tibiotalar arthrodesis. Signed by Adelaida Olivas MD on May 19, 2017 at 12:19 PM Cast Note She was place in a well fitting, well padded short leg non-weight bearing fiberg lass cast on her Left lower extremity. She was instructed on cast precautions a nd to call if there are any concerns. documented in this encounter Plan of Treatment Care Team Description Date [place] [address] [place] [address] [phone] 02/29/2020 Office Visit Urology documented as of this encounter Visit Diagnoses Not on filedocumented in this encounter Additional Health Concerns Resolved Time Infection Noted Time 04/19/2018 12:13 PM CDT Influenza 08/30/2017 10:13 AM ROOF PROMENADE TILE SETTER 08/30/2019 1:09 PM ROOF PROMENADE TILE SETTER Influenza - Rule Out 08/30/2019 11:32 AM ROOF PROMENADE TILE SETTER 09/17/2019 8:17 AM ROOF PROMENADE TILE SETTER RSV 08/31/2019 6:35 PM ROOF PROMENADE TILE SETTER documented as of this encounter
--- OUTSIDE RECORDS SUMMARY | 2019-11-28 22:28 | XMS REPORT | Encounter Summary ---
Author Author [facility] Organization [facility] Address Unknown Phone Unavailable Care Team Providers Care Section Cutter Name Role Phone Ebony Sharp MD PCP Reason for Visit * Reason Comments Follow-up Vianney left ankle post op/ ok per Trell/ 04/12/2017 [id number]: Appt. Reminder (04/13/2017 06:16 PM) Phone Call - Resp onded "Yes" (Y=Answered - Yes) Encounter Details Care Team Description Date Type Department Adelaida Olivas MD [address] [facility] [address] [place] [address] [phone] 04/15/2017 Hist-Appointmen Aide Orthopaedi c t Specialists [address] 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
--- OUTSIDE RECORDS SUMMARY | 2019-11-28 22:28 | XMS REPORT | Encounter Summary ---
Author Author [facility] Organization [facility] Address Unknown Phone Unavailable Care Team Providers Care Information Management Specialist Name Role Phone Ebony Sharp MD PCP Encounter Details Care Team Description Date Type Department Adelaida Olivas MD [address] [facility] [address] [place] [address] [phone] 04/15/2017 Hist-Other [facility] [address] [place] [address] Social History Date Tobacco Use Types Packs/Day [...] Description Date [place] [address] [place] [address] [phone] 02/29/2020 Office Visit Urology documented as of this encounter Procedures Comments Procedure Name Priority Date/Time Associated Diag nosis XR ANKLE LEFT Routine 04/15/2017 6:01 PM CDT documented in this encounter Results * XR Ankle left (04/15/2017 6:01 PM CDT) Specimen Performing Organization Address City/State/Zipcode Ph one Number [place] documented in this encounter Visit Diagnoses Not on filedocumented in this encounter Additional Health Concerns Resolved Time Infection Noted Time 04/19/2018 12:13 PM CDT 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
--- OUTSIDE RECORDS SUMMARY | 2019-11-28 22:28 | XMS REPORT | Encounter Summary ---
Author Author [facility] Organization [facility] Address Unknown Phone Unavailable Care Team Providers Care Valve Inserter Name Role Phone Ebony Sharp MD PCP Reason for Visit * Reason Comments Other Encounter Details Care Team Description Date Type Department Ebony Sharp MD [address] [facility] [address] [place] [address] [phone] Other 04/13/2017 Refill [facility] (walk-in clinic) [address] [facility] [address] [place], [place] [id number] Social History Date Tobacco Use Types Packs/Day [...] Description Date [place] [address] [place] [address] [phone] 02/29/2020 Office Visit Urology documented as of this encounter Visit Diagnoses Not on filedocumented in this encounter
--- OUTSIDE RECORDS SUMMARY | 2019-11-28 22:29 | XMS REPORT | Encounter Summary ---
Author Author [facility] Organization [facility] Address Unknown Phone Unavailable Care Team Providers Care Ice Rink Attendant Name Role Phone Ebony Sharp MD PCP Reason for Visit * Auth/Cert Referred By Contact Referred To Contact Status Reason Specialty Diagnoses / Procedures Diagnoses M19.072 P rocedures ME ARTHRODESIS,ANKLE, OPEN LEFT ANKLE REMOVAL OF HARDWARE REVISION ARTHRODESIS LEFT ANKLE Encounter Details Care Team Description Date Type Department Adelaida Olivas MD [address] [facility] [address] [place] [address] [phone] Type 2 diabetes mellitus with hyperglyce prasanna, 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); Benign essential HTN 04/09/2017 [facility] 04/12/[address] [place] [address] Social History Date Tobacco Use Types Packs/Day [...] Signs Reading Time Taken Comments Vital Sign 130/63 04/12/2017 2:00 PM CDT Blood Pressure 83 04/12/2017 3:23 PM CDT Pulse 36.9 C (98.5 F) 04/12/2017 2:00 PM CDT Temperature 20 04/12/2017 3:23 PM CDT Respiratory Rate 93% 04/12/2017 3:23 PM CDT Oxygen Saturation - - Inhaled Oxygen Concentration 98.5 kg (217 lb 2.5 oz) 04/12/2017 1:23 AM CDT Weight 157.5 cm (5' 2") 04/09/2017 4:58 PM CDT Height 39.72 04/09/2017 4:58 PM CDT Body Mass Index documented in this encounter Discharge Summaries * Adelaida Olivas MD - 04/18/2017 1:54 PM CDT Name: ISIAH BENÍTEZ Date of : 1950 Attending Physician: Adelaida Olivas MD Date of Discharge: 04/12/2017 HISTORY OF PRESENT ILLNESS AND HOSPITAL COURSE: Ms. Benítez is a 66-year-old woma n who underwent a left ankle arthrodesis. The patient tolerated the procedure well, was extubated in the OR, sent to PACU and then to a regular hospital bed where she spent the rest of her hospitalizati on. Postoperatively, the patient was transitioned from IV to oral pain medicine . She was deemed stable for discharge on DVT prophylaxis, oral pain medicine wi th instructions to remain strictly nonweightbearing on her left lower extremity. I will see her back in my office in 7-10 days. DISCHARGE MEDICATIONS: Electronically generated summary for 1. albuterol 90 mcg/actuation HFA inhaler Dose: 1 puff Inhale 1 puff every 4 (four) hours as needed for wheezing. Quantity: 18 g Refills: 11 Commonly known as: PROAIR HFA 2. amitriptyline 25 MG tablet Dose: 25 mg Take 1 tablet (25 mg total) by mouth nightly. Quantity: 90 tablet Refills: 1 Commonly known as: ELAVIL 3. amLODIPine 2.5 MG tablet Dose: 5 mg Take 2 tablets (5 mg total) by mouth daily. Take one daily. Quantity: 90 tablet Refills: 1 Commonly known as: NORVASC 4. BIOTIN ORAL Dose: 2 tablet Take 2 tablets by mouth daily. Refills: 0 5. citalopram 20 mg tablet Dose: 20 mg Take 1 tablet (20 mg total) by mouth daily. Quantity: 90 tablet Refills: 1 Commonly known as: CeleXA 6. cyclobenzaprine 10 MG tablet Dose: 10 mg Take 1 tablet (10 mg total) by mouth nightly. Quantity: 90 tablet Refills: 1 Commonly known as: FLEXERIL 7. docusate sodium 100 MG capsule Dose: 100 mg Take 1 capsule (100 mg total) by mouth 2 (two) times a day as needed for constipation (first line therapy with polyethlene glycol). Quantity: 60 capsule Refills: 0 Commonly known as: COLACE 8. enoxaparin 40 mg/0.4 mL Syrg Dose: 40 mg Inject 0.4 mL (40 mg total) under the skin every 24 hours. Quantity: 30 Syringe Refills: 0 Commonly known as: LOVENOX Indication: Deep Vein Thrombosis Prevention 9. fluticasone-vilanterol 200-25 mcg/actuation INHALER Dose: 1 puff Inhale 1 puff daily. Quantity: 60 each Refills: 3 Commonly known as: BREO 10. ELLIPTA Indication: Maintenance Therapy for Asthma 11. gabapentin 300 MG capsule Dose: 300 mg Take 1 capsule (300 mg total) by mouth 3 (three) times a day. Quantity: 270 capsule Refills: 1 Commonly known as: NEURONTIN 12. insulin glargine 100 unit/mL injection Dose: 18 Units Inject 18 Units under the skin nightly. When steroid complete - resume taking 15 units rather than 30 Quantity: 10 mL Refills: 0 Commonly known as: LANTUS What changed: how much to take 13. insulin syringe 0.3 mL 31 gauge x 5/16 Inject under the skin daily. use as directed Quantity: 100 each Refills: 1 Commonly known as: BD ULTRAFINE 14. ipratropium-albuterol 0.5-3 mg/3 mL nebulizer Dose: 3 mL Inhale 3 mL 4 (four) times a day. Quantity: 360 mL Refills: 11 Commonly known as: DUO-NEB 15. metoprolol tartrate 100 MG tablet Dose: 100 mg Take 1 tablet (100 mg total) by mouth 2 (two) times a day. Quantity: 180 tablet Refills: 1 Commonly known as: LOPRESSOR 16. naloxone 4 mg/actuation [place] Dose: 1 spray Use 1 spray in each nostril as needed (Give in one nostril if not breathing. After 2-3 min, repeat with new device in opposite nostril). Quantity: 2 each Refills: 0 Commonly known as: NARCAN Indication: Opiate-Induced Respiratory Depression 17. oxyCODONE 5 MG immediate release tablet Dose: 5 mg Take 1 tablet (5 mg total) by mouth every 4 (four) hours as needed. Quantity: 60 tablet Refills: 0 Commonly known as: 18. ROXICODONE Indication: Pain OXYGEN THERAPY Dose: 2 L/min 2 L/min as needed. Refills: 0 polyethylene glycol 17 gram packet Dose: 17 g Take 1 packet (17 g total) by mouth daily as needed (first line therapy with docusate). Quantity: 14 each Refills: 0 Commonly known as: GLYCOLAX 19. senna-docusate 8.6-50 mg Dose: 1 tablet Take 1 tablet by mouth 2 (two) times a day. Refills: 0 Commonly known as: PERICOLACE 20. simvastatin 20 MG tablet Dose: 20 mg Take 1 tablet (20 mg total) by mouth nightly. Quantity: 90 tablet Refills: 1 Commonly known as: ZOCOR Adelaida Olivas MD [id number] documented in this encounter Discharge Instructions * Appointments* Fiorella Diana RN - 04/12/2017 10:52 AM CDT Follow up appointment is scheduled for March at 4:[address] Olivas [facility] [phone] * Pre-Procedure Instructions* Renee Sanderson RN - 04/07/2017 12:03 PM CDT Current Outpatient Prescriptions Medication Sig Note: oxyCODONE-acetaminophen (PERCOCET) 10-325 mg per tablet Take 1 tablet by tanna th every 4 (four) hours as needed for pain. Note: may take DOS if needed albuterol (PROAIR HFA) 90 mcg/actuation HFA inhaler Inhale 1 puff every 4 (f our) hours as needed for wheezing. Note: bring DOS amitriptyline (ELAVIL) 25 MG tablet Take 1 tablet (25 mg total) by mouth nig htly. Note: amLODIPine (NORVASC) 2.5 MG tablet Take 2 tablets (5 mg total) by mouth eve y. Take one daily. Note:take DOS BIOTIN ORAL Take 2 tablets by mouth daily. Note: citalopram (CELEXA) 20 mg tablet Take 1 tablet (20 mg total) by mouth daily. Note: cyclobenzaprine (FLEXERIL) 10 MG tablet Take 1 tablet by mouth nightly. Note : fluticasone-vilanterol (BREO ELLIPTA) 200-25 mcg/actuation INHALER Inhale 1 puff daily. Note: use DOS gabapentin (NEURONTIN) 300 MG capsule TAKE 1 CAPSULE(300 MG) BY MOUTH THREE TIMES DAILY Note: take DOS insulin glargine (LANTUS) 100 unit/mL injection Inject 30 Units under the sk in nightly. When steroid complete - resume taking 15 units rather than 30 (Patie nt taking differently: Inject 15 Units under the skin nightly. When steroid comp lete - resume taking 15 units rather than 30) Note: insulin syringe (BD ULTRA-FINE) 0.3 mL 31 gauge x 5/16 Inject under the skin daily. use as directed Note: ipratropium-albuterol (DUO-NEB) 0.5-3 mg/3 mL nebulizer Inhale 3 mL 4 (four) times a day. Note: use as needed lidocaine (XYLOCAINE) 5 % ointment APPLY EXTERNALLY TO THE AFFECTED AREA 1 T O 4 TIMES DAILY NEEDED Note: metoprolol tartrate (LOPRESSOR) 100 MG tablet Take 1 tablet (100 mg total) b y mouth 2 (two) times a day. Note:take DOS morphine (MSIR) 15 MG tablet Take 15 mg by mouth every 12 (twelve) hours. No te: take DOS OXYGEN THERAPY 2 L/min as needed. Note: simvastatin (ZOCOR) 20 MG tablet Take 1 tablet (20 mg total) by mouth nightl y. Note: * Attachments The following attachments cannot be sent through Care Everywhere.* ENOXAPARIN INJECTION (ICELANDIC) * OXYCODONE HYDROCHLORIDE ORAL TABLET (ICELANDIC) * CONSTIPATION (ADULT) (ICELANDIC) * DIET: HIGH FIBER, DISCHARGE INSTRUCTIONS (ICELANDIC) documented in this encounter Medications at Time [...] as of this encounter Progress Notes * Honey Cardoza APRN - 04/12/2017 9:03 AM CDT [facility] Hospitalist - Progress Note Patient Name: Isiah Benítez Account No: [id number] Date of : 1950 Date of Admission: 04/09/2017 9:39 AM Subjective Follow up regarding DM2, HTN, COPD Patient reports feeling good today. Patent reports pain adequately controlled wi th pain medications. No nausea or vomiting, adequate oral intake. Denies dizzine ss upon standing, chest pain, shortness of air, cough, abdominal pain, dysuria, calf pain, fever or chills. She is normotensive, BS acceptable, few high readings. She is requesting cost a ssistance with medication cost coverage. Review of Systems: A 4-point review of systems was performed and was negative ex cept as noted above. Objective Vital Signs: Temp: 37 C (98.6 F) Pulse: 98 Resp: 22 BP: 132/82 SpO2: 93 % He ight: 157.5 cm (5' 2") Weight: 98.5 kg (217 lb 2.5 oz) I/O last 24 Hours: In: 300 [P.O.:300] Out: 150 [Urine:150] Physical Exam: Gen: NAD CV: RRR, no murmurs Resp: CTAB Abd: S/ND/NT, +BS Ext: No c/c/e. Left foot with dressing in place, C/D/I. CSM of distal RLE intact . Soft compartments. Neuro: A/Ox3, no focal neurologic deficits I have personally reviewed the patient's vital signs, laboratory/pathology/cultu re results (as indicated), current inpatient medications, help desk consultant notes and s upport staff notes with pertainent findings noted within the assessment/plan. Assessment/Plan Ms. Isiah Benítez is a 66 y.o. female who was admitted on 04/09/2017 with ankle p ain. Problems addressed with today's visit include: * Type 2 diabetes mellitus with hyperglycemia, with long-term current use of ins ulin (HCC) Mildly hyperglycemic, likely due to stress/pain- -Continue Lantus at 18u HS and SSI prn while hospitalized -Recommended f/u with PCP in 1-2 weeks for further diabetes management once mor e stable post op Closed left ankle fracture Postoperative Day # 3 s/p Left ankle revision arthrodesis -Management by primary service SASHA on CPAP Stable, continue CPAP at HS Benign essential HTN Normotensive, Continue amlodipine COPD (chronic obstructive pulmonary disease) (HCC) Stable, quit smoking 7 years ago. No signs of exacerbation -continue breo and nebs Chronic pain Stable, Continue gabapentin and elavil See my orders for additional details regarding this patients treatment plan. Room: [address] [place] [address] Diet: Diet-Consistent Carbohydrate (75 gm) Code Status: Full Code VTE Prevention: Appropriate VTE orders and/or documentation has been completed for this patient. [place]ard Catheter: N/A Scheduled Meds: amitriptyline 25 mg Oral Nightly amLODIPine 5 mg Oral Daily citalopram 20 mg Oral Daily enoxaparin 40 mg Subcutaneous Q24H TUYET fentaNYL 1 patch Transdermal Q72H fluticasone-vilanterol 1 puff Inhalation Daily gabapentin 300 mg Oral TID insulin glargine 18 Units Subcutaneous Nightly insulin lispro 2-12 Units Subcutaneous 4 times daily before meals and night ly ipratropium-albuterol 3 mL Inhalation 4x Daily metoprolol tartrate 100 mg Oral BID Continuous Infusions: PRN Meds: acetaminophen OR acetaminophen, albuterol, aluminum-magnesium hydroxide-lindsay thicone, dextrose 50% OR dextrose 50% OR dextrose 10%, docusate sodium, fentaNYL, glucagon OR glucagon, metoclopramide OR metoclopramide, micona zole nitrate, ondansetron, oxyCODONE, polyethylene glycol, promethazine OR p rochlorperazine OR prochlorperazine Honey Abdullahi APRN [facility] Please page through physician paging. > 25 minutes spent on chart review, exam, orders and patient education. >50% of this time was spent face to face with the patient. . * Maryam Cornell RN APRN - 04/12/2017 8:58 AM CDT [facility] Orthopedic Daily Progress Note Patient Name: Isiah Do Board Date: 04/12/2017 Hospital Day # LOS: 3 days Procedure: removal of hardware and revision of left ankle arthrodesis on 04/09/[address] Adelaida Olivas Assessment/Plan: Active Problems: COPD (chronic obstructive pulmonary disease) (HCC) Chronic pain Type 2 diabetes mellitus with hyperglycemia, with long-term current use of ins ulin (HCC) Benign essential HTN SASHA on CPAP Closed left ankle fracture Ortho plan: -home later today if patient's pain is better controlled on oral pain meds -DC IV fentanyl -elevate LLE to help reduce pain -resume Flexeril -continue gabapentin for nerve type "electric impulses" -Lovenox at home for one month Subjective: No acute overnight events. Patient stilling in chair Objective: Exam: Gen: Calm, cooperative, NAD HEEN: normocephalic; EOMs are intact; Face symmetrical Neuro: Pt is awake, alert and oriented x3 with fluent speech. NÚÑEZ with 5/5 strength- good sensation. Wiggles toes Skin: no rash. Warm, dry - Incision splint CDI Ext: + 2 pulses throughout, no edema noted Vital Signs: Temp: [36.7 C (98.1 F)-37.3 C (99.1 F)] 37 C (98.6 F) Pulse: [80-105] 98 Resp: [18-22] 22 BP: (132-157)/(82-89) 132/82 Intake/Output last 24 Hours and Current Shift: I/O last 3 completed shifts: In: 2049 [P.O.:2049] Out: 1685 [Urine:1675; Drains:10] No intake/output data recorded. Scheduled Medications: amitriptyline 25 mg Oral Nightly amLODIPine 5 mg Oral Daily citalopram 20 mg Oral Daily enoxaparin 40 mg Subcutaneous Q24H TUYET fentaNYL 1 patch Transdermal Q72H fluticasone-vilanterol 1 puff Inhalation Daily gabapentin 300 mg Oral TID insulin glargine 18 Units Subcutaneous Nightly insulin lispro 2-12 Units Subcutaneous 4 times daily before meals and night ly ipratropium-albuterol 3 mL Inhalation 4x Daily metoprolol tartrate 100 mg Oral BID PRN Medications: acetaminophen OR acetaminophen, albuterol, aluminum-magnesium hydroxide-lindsay thicone, dextrose 50% OR dextrose 50% OR dextrose 10%, docusate sodium, fentaNYL, glucagon OR glucagon, metoclopramide OR metoclopramide, micona zole nitrate, ondansetron, oxyCODONE, polyethylene glycol, promethazine OR p rochlorperazine OR prochlorperazine Laboratory: No lab components to display No lab components to display No lab components to display Invalid input(s): LABALBU No results found for: PHOS, HGB No lab components to display No lab components to display Maryam Cornell APRN- Orthopedics Pager [phone] * Heriberto Acosta MD - 04/11/2017 8:59 AM CDT [facility] Hospitalist - Progress Note Patient Name: Isiah Do Board Account No: [id number] Date of : 1950 Date of Admission: 04/09/2017 9:39 AM Subjective Follow up regarding DM, HTN Subjective: Patient reports increased pain in left ankle today. Denies fever, c hills, cough, dyspnea, nausea, dysuria. Review of Systems: A 4-point review of systems was performed and was negative ex cept as noted above. Objective Vital Signs: Temp: 36.9 C (98.4 F) Pulse: 90 Resp: 20 BP: 137/90 SpO2: 93 % Height: 157.5 cm (5' 2") Weight: 98.5 kg (217 lb 2.5 oz) I/O last 24 Hours: In: 350 [P.O.:350] Out: 150 [Urine:150] Physical Exam: Gen: Alert, NAD CV: RRR Pulm: CTAB, no wheezes, rales, or rhonchi Abd: Soft, non-tender, +BS Ext: No edema I have personally reviewed the patient's vital signs, laboratory/pathology/cultu re results (as indicated), current inpatient medications and customer support engineer notes with pertainent findings noted within the assessment/plan. Assessment/Plan Ms. Isiah Benítez is a 66 y.o. female who was admitted on 04/09/2017 with ankle p ain. Problems addressed with today's visit include: Type 2 diabetes mellitus with hyperglycemia, with long-term current use of insul in ([facility]) Mildly hyperglycemic, likely due to stress/pain- will continue current basal/marita wilbert insulin dosing and monitor. SASHA on CPAP She is trying to be more compliant with CPAP use Benign essential HTN Continue amlodipine COPD (chronic obstructive pulmonary disease) ([facility]) Stable -continue breo and nebs -quit smoking 7 years ago Closed left ankle fracture Management by primary service Chronic pain Continue gabapentin and elavil See my orders for additional details regarding this patients treatment plan. Room: [address] [place] [address] Diet: Diet-Consistent Carbohydrate (75 gm) Code Status: Full Code VTE Prevention: Appropriate VTE orders and/or documentation has been completed for this patient. [place]ard Catheter: N/A Scheduled Meds: amitriptyline 25 mg Oral Nightly amLODIPine 5 mg Oral Daily citalopram 20 mg Oral Daily enoxaparin 40 mg Subcutaneous Q24H TUYET fentaNYL 1 patch Transdermal Q72H fluticasone-vilanterol 1 puff Inhalation Daily gabapentin 300 mg Oral TID insulin glargine 18 Units Subcutaneous Nightly insulin lispro 2-12 Units Subcutaneous 4 times daily before meals and night ly ipratropium-albuterol 3 mL Inhalation 4x Daily metoprolol tartrate 100 mg Oral BID Continuous Infusions: sodium chloride 50 mL/hr (04/09/17 1824) PRN Meds: acetaminophen OR acetaminophen, albuterol, aluminum-magnesium hydroxide-lindsay thicone, dextrose 50% OR dextrose 50% OR dextrose 10%, docusate sodium, fentaNYL, glucagon OR glucagon, metoclopramide OR metoclopramide, micona zole nitrate, ondansetron, oxyCODONE, polyethylene glycol, promethazine OR p rochlorperazine OR prochlorperazine Heriberto Acosta MD [facility] Please page through physician paging. . * Walker Funez MD - 04/11/2017 8:50 AM CDT [facility] Orthopaedic Progress Note Subjective: Patient states pain overnight, but improving today. Has been OOB. Objective: Vital Signs: BP 137/90 (BP Location: Right arm, Patient Position: Supine) | Pu lse 90 | Temp 36.9 C (98.4 F) (Oral) | Resp 20 | Ht 1.575 m (5' 2") | Wt 98.5 kg (217 lb 2.5 oz) | SpO2 93% | ? No | BMI 39.72 kg/m Physical Examination: Dressing is clean and intact, elevated on pillow, minimal drainage posterior ly Negative Owen's sign bilaterally. Toes with brisk cap refill Sensation intact, wiggles toes Labs: Most Recent Result from last 24 hours Lab Units 04/10/17 1018 SODIUM MEQ/L 139 POTASSIUM MEQ/L 4.2 CHLORIDE MEQ/L 102 CARBON DIOXIDE MEQ/L 25 ANION GAP 11 CREATININE mg/dL 1.0 White cell count: No lab components to display Assessment / Plan: Postoperative Day # 2 s/p Left ankle revision arthrodesis Continue postoperative pain control Continue postoperative DVT Prophylaxis as ordered. Continue Postoperative Therapy as ordered NWB LLE - elevate Discharge planning for Wednesday Electronically signed by: Walker Funez 04/11/2017 8:50 AM * Heriberto Acosta MD - 04/10/2017 12:31 PM CDT [facility] Hospitalist - Progress Note Patient Name: Isiah Do Board Account No: [id number] Date of : 1950 Date of Admission: 04/09/2017 9:39 AM Subjective Follow up regarding DM, HTN Subjective: Patient reports some ankle pain, but better control with fentanyl pa tch. She reports she has been working on her diabetic diet. No changes in urin ation. Denies fever, chills, nausea, dyspnea. Review of Systems: A 4-point review of systems was performed and was negative ex cept as noted above. Objective Vital Signs: Temp: 36.8 C (98.3 F) Pulse: 75 Resp: 16 BP: 123/69 SpO2: 95 % Height: 157.5 cm (5' 2") Weight: 98.5 kg (217 lb 2.5 oz) I/O last 24 Hours: In: 1067.3 [P.O.:880; I.V.:107.3; IV Piggyback:80] Out: 1260 [Urine:1100; Drains:160] Physical Exam: Gen: Alert, NAD CV: RRR, no murmurs, clicks, or rub Pulm: CTAB, no wheezes, rales, or rhonchi Abd: Soft, non-tender, +BS Ext: No edema I have personally reviewed the patient's vital signs, laboratory/pathology/cultu re results (as indicated), current inpatient medications and customer support engineer notes with pertainent findings noted within the assessment/plan. Assessment/Plan Ms. Isiah Benítez is a 66 y.o. female who was admitted on 04/09/2017 with ankle p ain. Problems addressed with today's visit include: Type 2 diabetes mellitus with hyperglycemia, with long-term current use of insul in ([facility]) Remains hyperglycemic post-op- will increase basal insulin dose and correction level and monitor. SASHA on CPAP She is trying to be more compliant with CPAP use Benign essential HTN Continue amlodipine COPD (chronic obstructive pulmonary disease) ([facility]) Stable -continue breo and nebs -quit smoking 7 years ago Closed left ankle fracture Management by primary service Chronic pain Continue gabapentin and elavil See my orders for additional details regarding this patients treatment plan. Room: [facility]/[address] [place] [address] Diet: Diet-Consistent Carbohydrate (75 gm) Code Status: Full Code VTE Prevention: Appropriate VTE orders and/or documentation has been completed for this patient. [place] Catheter: N/A Scheduled Meds: amitriptyline 25 mg Oral Nightly amLODIPine 5 mg Oral Daily citalopram 20 mg Oral Daily enoxaparin 40 mg Subcutaneous Q24H TUYET fentaNYL 1 patch Transdermal Q72H fluticasone-vilanterol 1 puff Inhalation Daily gabapentin 300 mg Oral TID insulin glargine 18 Units Subcutaneous Nightly insulin lispro 2-12 Units Subcutaneous 4 times daily before meals and night ly ipratropium-albuterol 3 mL Inhalation 4x Daily metoprolol tartrate 100 mg Oral BID Continuous Infusions: sodium chloride 50 mL/hr (04/09/17 1824) PRN Meds: acetaminophen OR acetaminophen, albuterol, aluminum-magnesium hydroxide-lindsay thicone, dextrose 50% OR dextrose 50% OR dextrose 10%, docusate sodium, fentaNYL, fentaNYL, glucagon OR glucagon, meperidine, metoclopramide OR metoclopramide, miconazole nitrate, ondansetron, ondansetron, oxyCODONE, polyeth ylene glycol, promethazine OR prochlorperazine OR prochlorperazine Heriberto Acosta MD [facility] Please page through physician paging. . * Walker Funez MD - 04/10/2017 7:22 AM CDT [facility] Orthopaedic Progress Note Subjective: Patient states pain overnight, but block still working. Requesting fentanyl patc h Objective: Vital Signs: BP 131/66 (BP Location: Right arm, Patient Position: Supine) | Pu lse 78 | Temp 36.9 C (98.4 F) (Oral) | Resp 20 | Ht 1.575 m (5' 2") | Wt 98.5 kg (217 lb 2.5 oz) | SpO2 96% | ? No | BMI 39.72 kg/m Physical Examination: Dressing is clean, dry and intact, elevated on pillow Negative Owen's sign bilaterally. Toes with brisk cap refill Block still intact Labs: Most Recent Result from last 24 hours Lab Units 04/09/17 1050 SODIUM MEQ/L 143 POTASSIUM MEQ/L 4.0 CHLORIDE MEQ/L 103 CARBON DIOXIDE MEQ/L 27 ANION GAP 13 CREATININE mg/dL 0.8 White cell count: No lab components to display Assessment / Plan: Postoperative Day # 1 s/p Left ankle revision arthrodesis Continue postoperative pain control - fentanyl patch ordered Continue postoperative DVT Prophylaxis as ordered. Continue Postoperative Therapy as ordered NWB LLE - elevate Discharge planning for Wednesday Electronically signed by: Walker Funez 04/10/2017 7:23 AM documented in this encounter H&P Notes * Maryam Cornell RN MAGENTO DEVELOPER - 04/08/2017 4:00 [place] [address] History and Physical PATIENT NAME: Isiah Benítez DATE: 04/08/2017 CPI: [id number] AGE: 66 y.o. : 1950 HISTORY OF PRESENT ILLNESS: She is a 66 year old female who was last seen on in the office. She has been using a bone stimulator without improvement in healing. She continues to have pain with weight bearing activities. She has been unable to walk long distances or stand. PAST MEDICAL HISTORY: Past Medical History: Diagnosis Date Allergic rhinitis Anxiety Bronchitis, chronic (HCC) Cataract Chronic pain disorder in ankle COPD (chronic obstructive pulmonary disease) (HCC) Depression Diabetes mellitus, type II (HCC) Fractures [address] in Left ankle Hyperlipidemia Hypertension On home oxygen therapy 2L - usually needs if has an exerbation of COPD, or resp illness Osteoarthritis Sleep apnea uses CPAP PAST SURGICAL HISTORY: Past Surgical History: Procedure Laterality Date ANKLE FRACTURE SURGERY Left 1998 fx in 3 places and w/screws in place APPENDECTOMY CATARACT EXTRACTION W/ INTRAOCULAR LENS IMPLANT Bilateral SECTION, CLASSIC CHOLECYSTECTOMY COLONOSCOPY HYSTERECTOMY OOPHORECTOMY TONSILLECTOMY TOTAL KNEE ARTHROPLASTY Left 2009 TOTAL KNEE ARTHROPLASTY Right 2010 FAMILY HISTORY: Family History Problem Relation Age of Onset Cancer Mother Stroke Mother Cancer Father Stroke Father SOCIAL HISTORY: Social History Social History Marital [...] her daughter, Frank Garcia Code status: Full ALLERGIES: Lisinopril; Metformin; and Sulfa (sulfonamide antibiotics) PRIOR TO ADMISSION MEDICATIONS: No prescriptions prior to admission. REVIEW OF SYSTEMS: Review of Systems Constitutional: Positive for activity change and fatigue. Negative for appetite change. HENT: Negative. Eyes: Negative. Respiratory: Negative for chest tightness. Endocrine: Negative. Genitourinary: Negative. Allergic/Immunologic: Negative. Neurological: Negative. Hematological: Negative. Psychiatric/Behavioral: Negative. PHYSICAL EXAM: Physical Exam Constitutional: She is oriented to person, place, and time. She appears well-dev eloped and well-nourished. No distress. HENT: Head: Normocephalic and atraumatic. Neck: Normal range of motion. Pulmonary/Chest: Effort normal and breath sounds normal. Musculoskeletal: Normal range of motion. She exhibits edema. Tenderness to palpation to the entire tibiotalar joint and subtalar joint Able to plantar and dorsiflex with minimal pain Good DP pulse No evidence of delayed wound healing Neurological: She is alert and oriented to person, place, and time. Skin: Skin is warm and dry. Psychiatric: She has a normal mood and affect. LAB RESULTS: No results found for this or any previous visit (from the past 24 hour(s)). 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 She will present to the OR for admission and removal of hardware and revision of the arthrodesis. The risks, benefits, and alternatives were discussed in detail with the patient by Dr. Olivas and she electively agrees to proceed. Maryam Cornell 04/08/2017 4:00 PM documented in this encounter Consult Notes * Xiomara Rubio LCSW - 04/10/2017 4:42 PM CDT Associated Order(s): CONSULT TO CARE INTEGRATION SW met with patient and her daughter to discuss discharge planning. Patient sta althea that she lives with her daughter in her daughter's home. Daughter's no longer in the home and this is a recent development. Patient states she is concerned about paying for her medications this month since they no longer have her son in law's income. SW educated that the MAP program at the hospital is ne eds/income based and limited to life sustaining medications only. Patient state s her co pay for medications is $50. Patient states that after this month it wo n't be an issue because she knows she will need to budget her money differently. Patient's daughter works at night and is home and available during the day. P atient's daughter does sleep in the day but would be able to get up and help pat ient if needed. Patient stats that she had this same issue in July and went home and plans to do the same this time. Patient states she would like home he alth. SW provided a list of agencies to patient. SW will continue to follow fo r any discharge planning needs and work toward mutually agreed upon goals. Teri Rubio LCSW, Informatics Educator [phone] * Sheryl Paredes DO - 04/09/2017 8:49 PM CDT Associated Order(s): IP CONSULT TO HOSPITALIST [facility] Hospitalist - Consult History & Physical Patient Name: Isiah Do Board Account No: [id number] Date of : 1950 Date of Admission: 04/09/2017 9:39 AM Primary Care Physician: Ebony Sharp MD; Attending Physician: Adelaida Olivas Md Reason for Consult: Medical management of hypertension, diabetes and COPD Subjective History of Present illness: Ms. Isiah Benítez is a 66 y.o. female with history o f DM on insulin, HTN, HLD, SASHA on CPAP, COPD and obesity who presented with left ankle pain. She has history of left ankle fracture requiring surgery and hardw are back in 1998. She had increasing pain in the ankle and underwent fusion trina jacinto in July but had trouble with proper healing. 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 She has wound vac in place. Pain is currently sta ble on oxycontin and fentanyl PRN. She uses only lantus 15 u qhs at home and do es not take oral meds- reports being allergic to metformin. Is trying to be mor e compliant with her CPAP. Is also trying to be more compliant with her diet. Review of Systems: A 10-point review of systems was performed and was negative e xcept as noted above. 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 Family History: She indicated that the status of her mother is unknown. She dara cated that the status of her father is unknown. Her family history includes Cancer in her father and mother; Stroke in her [facility] er and mother. Social History: She reports that she quit smoking about 7 years ago. Her smoking use included Cigarettes. She has a 6.60 pack-year smoking history. She has never used smokeless tobacco. She reports that she drinks alcohol. She reports that she does not use drugs. Allergies: She is allergic to lisinopril; metformin; and sulfa (sulfonamide anti biotics). Prior to Admission medications Medication Sig oxyCODONE-acetaminophen (PERCOCET) 10-325 mg per tablet Take 1 tablet by mouth e very 4 (four) hours as needed for pain. albuterol (PROAIR HFA) 90 mcg/actuation HFA inhaler Inhale 1 puff every 4 (four) hours as needed for wheezing. amitriptyline (ELAVIL) 25 MG tablet Take 1 tablet (25 mg total) by mouth nightly . amLODIPine (NORVASC) 2.5 MG tablet Take 2 tablets (5 mg total) by mouth daily. T hina one daily. BIOTIN ORAL Take 2 tablets by mouth daily. citalopram (CELEXA) 20 mg tablet Take 1 tablet (20 mg total) by mouth daily. cyclobenzaprine (FLEXERIL) 10 MG tablet Take 1 tablet (10 mg total) by mouth nig htly. fluticasone-vilanterol (BREO ELLIPTA) 200-25 mcg/actuation INHALER Inhale 1 puff daily. gabapentin (NEURONTIN) 300 MG capsule Take 1 capsule (300 mg total) by mouth 3 ( three) times a day. insulin glargine (LANTUS) 100 unit/mL injection Inject 15 Units under the skin n ightly. When steroid complete - resume taking 15 units rather than 30 insulin syringe (BD ULTRA-FINE) 0.3 mL 31 gauge x 5/16 Inject under the skin jcarlos ly. use as directed ipratropium-albuterol (DUO-NEB) 0.5-3 mg/3 mL nebulizer Inhale 3 mL 4 (four) joann es a day. metoprolol tartrate (LOPRESSOR) 100 MG tablet Take 1 tablet (100 mg total) by wy ut 2 (two) times a day. morphine (MS CONTIN) 15 MG 12 hr tablet morphine (MSIR) 15 MG tablet Take 15 mg by mouth every 12 (twelve) hours. OXYGEN THERAPY 2 L/min as needed. simvastatin (ZOCOR) 20 MG tablet Take 1 tablet (20 mg total) by mouth nightly. Objective Vital Signs: Temp: 36.9 C (98.4 F) Pulse: 94 Resp: 18 BP: 126/76 SpO2: 92 % Height: 157.5 cm (5' 2") Weight: 98.5 kg (217 lb 2.5 oz) I/O last 24 Hours: In: 1780 [P.O.:480; I.V.:1300] Out: 875 [Urine:650; Drains:205; Blood:20] Physical Exam: Gen: Calm, cooperative HEENT: NC/AT, PERRLA, EOMI, MMM's CV: RRR, S1 & S2 normal, no murmurs Resp: CTAB, no wheezes, crackles, or rhonchi Abd: S/ND/NT, +BS, no guarding or rebound Ext: Left ankle dressing in place with wound vac Skin: Warm, dry, & intact with no obvious rashes or significant lesions Neuro: A/Ox4, CN's II-XII grossly intact, no focal neurologic deficits I have personally reviewed the patient's vital signs, laboratory/pathology/cultu re results (as indicated), current inpatient medications and customer support engineer notes with pertainent findings noted within the assessment/plan. Assessment/PlanMs. Isiah Benítez is a 66 y.o. female who was admitted on 04/09/20 17 with complaint of left ankle surgery. IDDM (insulin dependent diabetes mellitus) ([facility]) Continue lantus 15 u qhs -not on oral meds -last A1C was 8.1 -start SSI level 2 SASHA on CPAP She is trying to be more compliant with CPAP use HTN (hypertension) Stable continue norvasc COPD (chronic obstructive pulmonary disease) (HCC) Stable -continue breo and nebs -quit smoking 7 years ago Closed left ankle fracture History of trimalleolar fracture 1998 with surgery -worsening pain so had fusion in July -symptomatic nonunion of a tibiotalar junction so to OR for removal of hardware and revision of the arthrodesis today -wound vac in place Chronic pain Gabapentin and elavil resumed In addition, see my orders for additional details regarding this patients treatm ent plan. Diet: Diet-Consistent Carbohydrate (75 gm) Code Status: Full Code VTE Prevention: Appropriate VTE orders and/or documentation has been completed for this patient. Thank you for the opportunity to participate in this patients care. We will cont inue to follow. Sheryl Paredes DO [facility] Hospitalist Please page through physician paging. . documented in this encounter Nursing Notes * Terrie Gallagher RN - 04/12/2017 6:38 PM CDT 04/12/2017 DC instructions given to pt. She will follow up with ortho as directed. Review ed medications with pt. Instructed to pt not to bear any weight on the left theo t. * Floresita Chen RN - 04/11/2017 6:08 PM CDT Patient requiring frequent pain meds for left ankle pain. Patient educated sever al times by RN needs to decrease use of IV pain med as soon as possible for prob able DC tomorrow, patient acknowledges understanding. Alternatives also used to lessen pain with not much success. * Isidra Moya RN - 04/09/2017 1:49 PM CDT All vendor trays came back with a negative biological and were sterilized in Count includes the [facility] Sterile Processing Department. documented in this encounter Miscellaneous Notes * Care Progression Final DC Note - Fiorella Diana RN - 04/12/2017 2:56 PM CDT Final Discharge Note Discharge goal and plan is mutually agreed upon by patient and Care Coordinaton. Patient will discharge to: [facility] Transportation: daughter Discharge Time: after 5:00pm Special Instructions: follow up appointment 04/15/2017 at 4:15 * Plan of Care - Terrie Gallagher RN - 04/12/2017 12:47 PM CDT Problem: Knowledge Deficit Goal: Patient/family/caregiver demonstrates understanding of disease process, tr eatment plan, medications, and discharge instructions Complete learning assessment and assess knowledge base. Outcome: Progressing Goal: Patient/Family/Caregiver sets realistic goals Outcome: Progressing Problem: Pain Goal: Patient's pain/discomfort is manageable Outcome: Progressing Pain well controlled with oral pain medication. Problem: Skin Integrity Goal: Skin integrity is maintained or improved Assess and monitor skin integrity. Identify patients at risk for skin breakdown on admission and per policy. Collaborate with interdisciplinary team and initiat e plans and interventions as needed. Outcome: Progressing Problem: Safety Goal: Patient will be injury free during hospitalization Outcome: Progressing Fall prevention in place. Problem: Nutrition Goal: Patient's nutritional intake is adequate Outcome: Progressing Good oral intake noted. Problem: Potential for Compromised Skin Integrity Goal: Nutritional status is improving Monitor and assess patient for malnutrition (ex- brittle hair, bruises, dry skin , pale skin and conjunctiva, muscle wasting, smooth red tongue, and disorientati on). Collaborate with interdisciplinary team and initiate plan and interventions as ordered. Monitor patient's weight and dietary intake as ordered or per edd cy. Utilize nutrition screening tool and intervene per policy. Determine patient 's food preferences and provide high-protein, high-caloric foods as appropriate. Outcome: Progressing Goal: Skin integrity is maintained or improved Assess and monitor skin integrity. Identify patients at risk for skin breakdown on admission and per policy. Collaborate with interdisciplinary team and initiat e plans and interventions as needed. Outcome: Progressing Problem: Risk for Falls Goal: Patient will not fall during their Inpatient stay Outcome: Progressing * Discharge Planning - Fiorella Diana RN - 04/12/2017 10:48 AM CDT Discharge Planning Interventions General Discharge Note Called patients preferred pharmacy [facility] [phone] to inquire cost of soraya xaparin 40mg [id number] #30. Cost to patient is $3.30. Prescription called in and ready for pickup at discharge. Will follow for any other needs at discharge. Eugenia Diana EVENT SPECIALIST [employer] [phone] * Discharge Planning - Fiorella Diana RN - 04/12/2017 9:38 AM CDT Discharge Planning Interventions General Discharge Note Reviewed discharge orders. HH is not ordered for discharge. Spoke with Maryam elmore RN MAGENTO DEVELOPER who confirms that HH is not necessary and that patient will discha rge to home self care with the assistance of her daughter. IMM letter signed, copy given, original scanned to records, documented in workqu e. * Plan of Care - Lauryn Alvarenga RN - 04/12/2017 1:21 AM CDT Problem: Knowledge Deficit Goal: Patient/family/caregiver demonstrates understanding of disease process, tr eatment plan, medications, and discharge instructions Complete learning assessment and assess knowledge base. Outcome: Progressing Goal: Patient/Family/Caregiver sets realistic goals Outcome: Progressing Problem: Pain Goal: Patient's pain/discomfort is manageable Outcome: Progressing Pt with increased pain in ankle after going to the bathroom. Pt again given inst ruction on IV medicine for breakthrough pain only, and staying on an oral pain m edicine regimen. Pt verbalized understanding. Problem: Skin Integrity Goal: Skin integrity is maintained or improved Assess and monitor skin integrity. Identify patients at risk for skin breakdown on admission and per policy. Collaborate with interdisciplinary team and initiat e plans and interventions as needed. Outcome: Progressing Problem: Safety Goal: Patient will be injury free during hospitalization Outcome: Progressing Problem: Nutrition Goal: Patient's nutritional intake is adequate Outcome: Progressing Problem: Potential for Compromised Skin Integrity Goal: Nutritional status is improving Monitor and assess patient for malnutrition (ex- brittle hair, bruises, dry skin , pale skin and conjunctiva, muscle wasting, smooth red tongue, and disorientati on). Collaborate with interdisciplinary team and initiate plan and interventions as ordered. Monitor patient's weight and dietary intake as ordered or per edd cy. Utilize nutrition screening tool and intervene per policy. Determine patient 's food preferences and provide high-protein, high-caloric foods as appropriate. Outcome: Progressing Goal: Skin integrity is maintained or improved Assess and monitor skin integrity. Identify patients at risk for skin breakdown on admission and per policy. Collaborate with interdisciplinary team and initiat e plans and interventions as needed. Outcome: Progressing Problem: Risk for Falls Goal: Patient will not fall during their Inpatient stay Outcome: Progressing * Therapy Note - Isidra Truong, OT - 04/11/2017 4:04 PM CDT 04/11/17 1415 OT Visit Info Initial OT Visit On 04/11/17 Assessed for Rehab Yes Past medical history reviewed through chart review: Yes Referral Reason eval and treat Ordering practitioner Brendon Patient/Family Reports Nurse ok'd eval. Pt supine in bed upon arrival. Pt pleasa nt and agreeble to OT eval OT Received On 04/11/17 Total Treatment Time (min) Start Time 1415 Stop Time 1500 Total Treatment time (min) 45 min Precautions Weight Bearing Status Non-Weight Bearing LLE Fall Risk Yes Home Living Type of Home House Home Layout Two level;Able to live on main level with bedroom/bathroom Stairs to second floor >12 steps Lives With Daughter Bathroom Shower/Tub Walk-in shower Bathroom Toilet Standard Home Assistive Device Standard walker;Rolling walker;Straight cane;Crutches;Othe r (Comment) Additional Comments Pt daugther is home and able to assist as necessary. 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 ADL Grooming Supervision/Setup Grooming Type of Task Washing, Rinsing and/or Drying the face;Washing, Rinsing a nd/or Drying the hand;Brushing Teeth Grooming Type of Assistance Setup of grooming supplies (completed while sitting in recliner) Bathing Minimal Assistance Bathing, Body Parts Chest;Left arm;Right arm;Abdomen;Perineal Area;Buttocks;Left upper leg;Right upper leg Bathing Type of Assistance Steadying assistance as patient completes tasks Upper Body Dressing Supervision/Setup Upper Body Dressing, Type of Clothing Pullover shirt (pullover sleep shirt) Upper Body Dressing Type of Assistance Retrieved clothing Cognition Overall Cognitive Status WFL Arousal/Alertness Appropriate responses to stimuli Attention Span Appears intact Memory Appears intact Orientation Level Oriented to time;Oriented to situation;Oriented to place;Orien lexis to person Following Commands Follows all commands and directions without difficulty Safety Judgment Decreased awareness of need for assistance;Decreased awareness o f need for safety Insight Decreased awareness of deficits RUE Assessment RUE Assessment WFL LUE Assessment LUE Assessment WFL Bed Mobility Supine to Sit Modified independent Sit to Supine Modified independent Bed Mobility Comments Pt uses bed rails, reports having bed side table to assist at home Transfers Assistive Device Rolling walker Sit to Stand Transfers Stand by assistance Stand to Sit Transfers Stand by assistance;Min assist Transfer Comments OT provided v/c to push up from sitting surface and to reach b ack for arm rest prior to stting down Activity Tolerance Activity Tolerance fair Activity Tolerance Comments pt visible fatigued. Pt back to bed following ADLs Patient Education Patient Education OT role and POC Other Pt in bed with call light within reach. Assessment Learning Barriers Pain Response to Treatment Tolerated well Problem List Decreased ADL participation;Decreased safety;Decreased strength;Dec reased functional mobility;Decreased activity tolerance Timeframe Timeframe LTG 4 visits Grooming Goals Grooming LTG Goal Status New goal Grooming LTG Setup/Supervision LB Dressing Goals LB Dressing LTG Goal Status New goal LB Dressing LTG Minimal Assistance Toileting Goals Toileting LTG Goal Status New goal Toileting LTG Minimal Assistance Toilet Transfer Goals Toilet Transfer LTG Goal Status New goal Toilet Transfer LTG Minimal Assistance Plan Pt/Family involved in Plan of Care yes Treatment Interventions ADL retraining;UE strengthening/ROM;Compensatory techniq ue education;Patient/family training;Functional activity tolerance;Functional tr ansfer training;Equipment evaluation/education OT Frequency 5-7x/wk Recommendation Plan Continued OT;Home OT Equipment Recommended shower chair OT G-codes Functional Limitation Self Care $Self Care Current Status (G8987) CJ $Self Care Goal Status (G8988) CI G-Code Determined by Clinical judgment * Therapy Note - Delores Harper, PT - 04/11/2017 11:26 AM CDT 04/11/17 1100 PT Visit Info Initial PT Visit On 04/11/17 Assessed for Rehab Yes Past medical history reviewed through chart review: Yes Referral Reason LLE Eval and Treat Ordering practitioner Adelaida Olivas Comorbidities pertaining to therapy diagnosis L Ankle fusion/hardware removal, R /L TKA, DM, HTN, COPD, Obesity Patient/Family Reports Patient in bed upon arrival. Reports she uses 2L O2 at ho me PRN. She is on O2 nasal canula upon arrival into room. Pt nurse in room, ale pandey pain medication via IV. PT Received On 04/11/17 PT Visit # 1 Time Calculation Start Time 0938 Stop Time 1003 Total Treatment time (min) 25 min Precautions Weight Bearing Status Non-Weight Bearing LLE Fall Risk Yes Isolation n Supplemental Oxygen Yes -2L O2 PRN Home Living Type of Home House Home Layout Two level;Able to live on main level with bedroom/bathroom Stairs to second floor >12 steps Lives With Daughter Bathroom Shower/Tub Walk-in shower Bathroom Equipment Shower chair Home Assistive Device Standard walker;Rolling walker;Straight cane;Crutches;Othe r (Comment) (Scooter) Additional Comments Pt daugther is home and able to assist as necessary. Patient was using SPC before hardware removal; Has RW at home Prior Function Level of Orange Independent with ADLs;Independent with ambulation;Independ ent with homemaking Vocational Retired Comments Pt reports using SPC as necessary prior to current episode of care. Pain Assessment Pain Score 10 Pain Type Surgical pain Pain Location Ankle Pain Orientation Left Patient exhibits Grimacing Pain Intervention(s) Medication (See MAR) Patient Response to Intervention Improved Nurse Notified? Yes Vital Signs O2 Device Nasal cannula O2 Flow Rate (L/min) 1 L/min Cognition Overall Cognitive Status WFL Bed Mobility Rolling Modified independent Supine to Sit Modified independent Sit to Supine Modified independent Bed Mobility Comments Pt uses bed rails, reports having bed side table to assist at home Transfers Assistive Device Rolling walker Sit to Stand Transfers Stand by assistance Stand to Sit Transfers Stand by assistance Bed to Chair Stand by assistance Transfer Comments Pt uses step-to hopping gait pattern with RW, cues to keep wal ker close for stability and UE control Gait Gait Distance (Feet) 20 Assistive Device Rolling walker Gait Level Surface Assistance Stand by Gait Comments Patient able to pivot 180 degrees twice between intervals of gait with SBA Balance Sitting Static 5 Sitting Dynamic 5 Standing Static 2 Standing Dynamic 2 Coordination comments Pt unable to stand on RLE and remove hands completely from RW without resting back of legs on bed Gait Activity Gait Surface level surface Gait Activity room mobility Gait Time 0-5 min Gait Assistance SBA Gait Activity Comments Pt fatigued after 20' gait with hopping pattern using RW. Activity Tolerance Activity Tolerance fair Activity Tolerance Comments pt visible fatigued, requests to rest after ambulati on; Sensation Light Touch Intact RUE Assessment RUE Assessment WFL LUE Assessment LUE Assessment WFL RLE Assessment RLE Assessment WFL LLE Assessment LLE Assessment X AROM LLE (degrees) L Ankle Dorsiflexion n/a L Ankle Plantar Flexion n/a Strength LLE L Ankle Dorsiflexion (n/a - pt in soft cast) L Ankle Plantar Flexion (n/a - pt in soft cast) Patient Education Patient Education Educated pt on plan of care, functional mobility, gait pattern with device and non-WBing, prognosis, and discharge planning. Other Patient in recliner with LLE elevated and in pressure relieving device, O2 via nasal canula, call light in reach; Spoke with patient and nursing about pt ability to use RW with SBA to get to bathroom and to/from bed and chair at this time. *ASSESSMENT Response to Treatment Good Problem List Activity limitations;Activity tolerance;Balance;Gait;Pain;ROM;Stair s;Strength;Transfers Clinical presentation Stable Timeframe Timeframe STG STG = LTG Timeframe LTG 2 visits Transfer Goals Transfer LTG Goal Status New goal Transfers LTG Modified independent Transfer LTG - Assistive Device Rolling walker Gait Distance/Assist Goals Gait Distance LTG (ft) 100 ft Gait Distance LTG Goal Status New goal Gait Assist LTG Modified independent Gait LTG - Assistive Device Rolling walker *PLAN Pt/Family Goal to go home Pt/Family involved in Plan of Care Yes Treatment/Interventions Functional transfer training;Endurance training;Gait tra ining;Balance;Progressive Mobility PT Frequency 5-7x/wk Recommendation Plan Continued PT PT G-Codes Functional Limitation Mobility: Walking & Moving Around $Mobility: Walking & Moving Around Current Status (G8978) $Mobility: Walking & Moving Around Goal Status (G8979) CI * Plan of Care - Floresita Chen RN - 04/11/2017 10:46 AM CDT Problem: Knowledge Deficit Goal: Patient/family/caregiver demonstrates understanding of disease process, tr eatment plan, medications, and discharge instructions Complete learning assessment and assess knowledge base. Outcome: Progressing Patient in agreement with treatment team, anticipates DC tomorrow to home. Goal: Patient/Family/Caregiver sets realistic goals Outcome: Progressing Problem: Pain Goal: Patient's pain/discomfort is manageable Outcome: Progressing Po meds, positioning and other alternatives used as well as IV med for break thr ough pain. Problem: Skin Integrity Goal: Skin integrity is maintained or improved Assess and monitor skin integrity. Identify patients at risk for skin breakdown on admission and per policy. Collaborate with interdisciplinary team and initiat e plans and interventions as needed. Outcome: Progressing Problem: Safety Goal: Patient will be injury free during hospitalization Outcome: Progressing Problem: Nutrition Goal: Patient's nutritional intake is adequate Outcome: Progressing Tolerating diet. Problem: Potential for Compromised Skin Integrity Goal: Nutritional status is improving Monitor and assess patient for malnutrition (ex- brittle hair, bruises, dry skin , pale skin and conjunctiva, muscle wasting, smooth red tongue, and disorientati on). Collaborate with interdisciplinary team and initiate plan and interventions as ordered. Monitor patient's weight and dietary intake as ordered or per edd cy. Utilize nutrition screening tool and intervene per policy. Determine patient 's food preferences and provide high-protein, high-caloric foods as appropriate. Outcome: Progressing Goal: Skin integrity is maintained or improved Assess and monitor skin integrity. Identify patients at risk for skin breakdown on admission and per policy. Collaborate with interdisciplinary team and initiat e plans and interventions as needed. Outcome: Progressing Problem: Risk for Falls Goal: Patient will not fall during their Inpatient stay Outcome: Progressing * Plan of Care - Kassy Law RN - 04/10/2017 10:28 PM CDT Problem: Knowledge Deficit Goal: Patient/family/caregiver demonstrates understanding of disease process, tr eatment plan, medications, and discharge instructions Complete learning assessment and assess knowledge base. Outcome: Progressing Patient has no questions at this time, will continue to monitor. Goal: Patient/Family/Caregiver sets realistic goals Outcome: Progressing Problem: Pain Goal: Patient's pain/discomfort is manageable Outcome: Progressing Patient is receiving IV pain medication at this time to control pain. Problem: Skin Integrity Goal: Skin integrity is maintained or improved Assess and monitor skin integrity. Identify patients at risk for skin breakdown on admission and per policy. Collaborate with interdisciplinary team and initiat e plans and interventions as needed. Outcome: Progressing Problem: Safety Goal: Patient will be injury free during hospitalization Outcome: Progressing Fall precautions in place, call light within reach. Patient has been educated on the importance of not getting up without staff assistance. Problem: Nutrition Goal: Patient's nutritional intake is adequate Outcome: Progressing Problem: Potential for Compromised Skin Integrity Goal: Nutritional status is improving Monitor and assess patient for malnutrition (ex- brittle hair, bruises, dry skin , pale skin and conjunctiva, muscle wasting, smooth red tongue, and disorientati on). Collaborate with interdisciplinary team and initiate plan and interventions as ordered. Monitor patient's weight and dietary intake as ordered or per edd cy. Utilize nutrition screening tool and intervene per policy. Determine patient 's food preferences and provide high-protein, high-caloric foods as appropriate. Outcome: Progressing Goal: Skin integrity is maintained or improved Assess and monitor skin integrity. Identify patients at risk for skin breakdown on admission and per policy. Collaborate with interdisciplinary team and initiat e plans and interventions as needed. Outcome: Progressing Problem: Risk for Falls Goal: Patient will not fall during their Inpatient stay Outcome: Progressing * Discharge Planning - Xiomara Rubio LCSW - 04/10/2017 4:44 PM CDT Discharge Planning Interventions General Discharge Note Patients Anticipated discharge destination: Home with Home Health RAYMOND met with patient and her daughter to discuss discharge planning. Patient sta althea that she lives with her daughter in her daughter's home. Daughter's no longer in the home and this is a recent development. Patient states she is concerned about paying for her medications this month since they no longer have her son in law's income. SW educated that the MAP program at the hospital is ne eds/income based and limited to life sustaining medications only. Patient state s her co pay for medications is $50. Patient states that after this month it wo n't be an issue because she knows she will need to budget her money differently. Patient's daughter works at night and is home and available during the day. P atient's daughter does sleep in the day but would be able to get up and help pat ient if needed. Patient stats that she had this same issue in July and went home and plans to do the same this time. Patient states she would like home he alth. RAYMOND provided a list of agencies to patient. RAYMOND will continue to follow fo r any discharge planning needs and work toward mutually agreed upon goals. Teri Rubio LCSW, Informatics Educator [phone] Patient's Living Arrangement: House Support System: Children. Is the prior level of care appropriate and safe?: Oth er (see comment) (waiting on therapy recommendations) List of Facilities Provided: Home Health Patient's Patient will need Home Care Services: Yes. Type of Home Care Services: Home hea lth aide, Home PT, Home OT, Nurse visit anticipated to be needed for patients discharge. Discharge Services requested include: Physical Therapy Location: Home; Occupational Therapy Location: Home; ; ; ; . Durable Medical Equipment has been identified for patients discharge. . Arrangements are being made with . . . Discharge Planning Participants: Patient, Children. Pt/Family Agreement w/ disc harge plan: Yes * Care Progression Initial Assessment - Xiomara Rubio LCSW - 04/10/2017 4:37 PM CDT Care Progression Initial Assessment Note SW met with patient and her daughter to discuss discharge planning. Patient sta althea that she lives with her daughter in her daughter's home. Daughter's no longer in the home and this is a recent development. Patient states she is concerned about paying for her medications this month since they no longer have her son in law's income. SW educated that the MAP program at the hospital is ne eds/income based and limited to life sustaining medications only. Patient state s her co pay for medications is $50. Patient states that after this month it wo n't be an issue because she knows she will need to budget her money differently. Patient's daughter works at night and is home and available during the day. P atient's daughter does sleep in the day but would be able to get up and help pat ient if needed. Patient stats that she had this same issue in July and went home and plans to do the same this time. Patient states she would like home he alth. SW provided a list of agencies to patient. SW will continue to follow fo r any discharge planning needs and work toward mutually agreed upon goals. Teri Rubio LCSW, Informatics Educator [phone] Referral to see patient was placed by Referral Source: Physician , Referral Reason: Discharge planning Initial assessment completed and Information obtained from: : patient Introduced self and purpose of meeting with the patient and is agreeable to inte rview at this time. In talking with patient, General Attitude: Appropriate Memory : Intact, Mood: Appropriate, Speech: Normal, Orientation Level: Intact , Patient's Living Arrangement: House Patients support system has been Support System: Children Patient has verbalized the following concerns at discharge:Concerns Reported: Co st of medication Family Concerns: No Pt has Payor: MEDICARE / Plan: MEDICARE PART A B / Product Type: Medicare / Legal Information: , Patients functioning status prior to admission to the hospital was: Patient currently uses at home: Patient states their Income Source: Not employed. Not employed: Retired, [place] nment Assistance: Medicare, SS/SSI Income/Expense Information: Income meets expenses Resources Available: Rx benefits Verified that patients primary care physician is Ebony Sharp MD and recei ves their medications from [facility] [address] [place], [place] - [address] [address] AT [place] [address] & [facility] [address] [phone] [facility] [address] [place], [place] - [address] [facility] & [address] [facility] [id number] * Plan of Care - Terrie Gallagher RN - 04/10/2017 8:29 AM CDT Problem: Knowledge Deficit Goal: Patient/family/caregiver demonstrates understanding of disease process, tr eatment plan, medications, and discharge instructions Complete learning assessment and assess knowledge base. Outcome: Progressing Pt demonstrates understanding of plan of care for ankle fracture. Goal: Patient/Family/Caregiver sets realistic goals Outcome: Progressing Problem: Pain Goal: Patient's pain/discomfort is manageable Outcome: Progressing Pain well controlled with IV fentanyl. Problem: Skin Integrity Goal: Skin integrity is maintained or improved Assess and monitor skin integrity. Identify patients at risk for skin breakdown on admission and per policy. Collaborate with interdisciplinary team and initiat e plans and interventions as needed. Outcome: Progressing Problem: Safety Goal: Patient will be injury free during hospitalization Outcome: Progressing Fall prevention noted. Problem: Nutrition Goal: Patient's nutritional intake is adequate Outcome: Progressing Problem: Potential for Compromised Skin Integrity Goal: Nutritional status is improving Monitor and assess patient for malnutrition (ex- brittle hair, bruises, dry skin , pale skin and conjunctiva, muscle wasting, smooth red tongue, and disorientati on). Collaborate with interdisciplinary team and initiate plan and interventions as ordered. Monitor patient's weight and dietary intake as ordered or per edd cy. Utilize nutrition screening tool and intervene per policy. Determine patient 's food preferences and provide high-protein, high-caloric foods as appropriate. Outcome: Progressing Good appetite noted. Goal: Skin integrity is maintained or improved Assess and monitor skin integrity. Identify patients at risk for skin breakdown on admission and per policy. Collaborate with interdisciplinary team and initiat e plans and interventions as needed. Outcome: Progressing Problem: Risk for Falls Goal: Patient will not fall during their Inpatient stay Outcome: Progressing * Plan of Care - Alecia Stearns RN - 04/09/2017 10:53 PM CDT Problem: Knowledge Deficit Goal: Patient/family/caregiver demonstrates understanding of disease process, tr eatment plan, medications, and discharge instructions Complete learning assessment and assess knowledge base. Outcome: Progressing Goal: Patient/Family/Caregiver sets realistic goals Outcome: Progressing Problem: Pain Goal: Patient's pain/discomfort is manageable Outcome: Progressing Problem: Skin Integrity Goal: Skin integrity is maintained or improved Assess and monitor skin integrity. Identify patients at risk for skin breakdown on admission and per policy. Collaborate with interdisciplinary team and initiat e plans and interventions as needed. Outcome: Progressing Problem: Safety Goal: Patient will be injury free during hospitalization Outcome: Progressing Problem: Nutrition Goal: Patient's nutritional intake is adequate Outcome: Progressing Problem: Potential for Compromised Skin Integrity Goal: Nutritional status is improving Monitor and assess patient for malnutrition (ex- brittle hair, bruises, dry skin , pale skin and conjunctiva, muscle wasting, smooth red tongue, and disorientati on). Collaborate with interdisciplinary team and initiate plan and interventions as ordered. Monitor patient's weight and dietary intake as ordered or per edd cy. Utilize nutrition screening tool and intervene per policy. Determine patient 's food preferences and provide high-protein, high-caloric foods as appropriate. Outcome: Progressing Goal: Skin integrity is maintained or improved Assess and monitor skin integrity. Identify patients at risk for skin breakdown on admission and per policy. Collaborate with interdisciplinary team and initiat e plans and interventions as needed. Outcome: Progressing Problem: Risk for Falls Goal: Patient will not fall during their Inpatient stay Outcome: Progressing * Assessment & Plan Note - Honey Cardoza APRN - 04/09/2017 10:00 PM CDT Associated Problem(s): COPD (chronic obstructive pulmonary disease) (HCC) Stable, quit smoking 7 years ago. No signs of exacerbation -continue breo and nebs * Assessment & Plan Note - Honey Cardoza APRN - 04/09/2017 10:00 PM CDT Associated Problem(s): Type 2 diabetes mellitus with hyperglycemia, with long-te rm current use of insulin (HCC) Mildly hyperglycemic, likely due to stress/pain- -Continue Lantus at 18u HS and SSI prn while hospitalized -Recommended f/u with PCP in 1-2 weeks for further diabetes management once mor e stable post op * Assessment & Plan Note - Honey Cardoza APRN - 04/09/2017 9:59 PM CDT Associated Problem(s): Essential hypertension Normotensive, Continue amlodipine * Assessment & Plan Note - Honey Cardoza APRN - 04/09/2017 9:59 PM CDT Associated Problem(s): SASHA on CPAP Stable, continue CPAP at HS * Assessment & Plan Note - Honey Cardoza APRN - 04/09/2017 9:59 PM CDT Associated Problem(s): Chronic pain Stable, Continue gabapentin and elavil * Assessment & Plan Note - Honey Cardoza APRN - 04/09/2017 9:58 PM CDT Associated Problem(s): Closed left ankle fracture Postoperative Day # 3 s/p Left ankle revision arthrodesis -Management by primary service * Plan of Care - Terrie Gallagher RN - 04/09/2017 6:40 PM CDT Problem: Knowledge Deficit Goal: Patient/family/caregiver demonstrates understanding of disease process, tr eatment plan, medications, and discharge instructions Complete learning assessment and assess knowledge base. Outcome: Progressing Pt demonstrates an understanding of post op care. Goal: Patient/Family/Caregiver sets realistic goals Outcome: Progressing Problem: Pain Goal: Patient's pain/discomfort is manageable Outcome: Progressing Pain well controlled with IV fentanyl and block. Problem: Skin Integrity Goal: Skin integrity is maintained or improved Assess and monitor skin integrity. Identify patients at risk for skin breakdown on admission and per policy. Collaborate with interdisciplinary team and initiat e plans and interventions as needed. Outcome: Progressing Problem: Safety Goal: Patient will be injury free during hospitalization Outcome: Progressing Problem: Nutrition Goal: Patient's nutritional intake is adequate Outcome: Progressing Good appetite noted. Problem: Potential for Compromised Skin Integrity Goal: Nutritional status is improving Monitor and assess patient for malnutrition (ex- brittle hair, bruises, dry skin , pale skin and conjunctiva, muscle wasting, smooth red tongue, and disorientati on). Collaborate with interdisciplinary team and initiate plan and interventions as ordered. Monitor patient's weight and dietary intake as ordered or per edd cy. Utilize nutrition screening tool and intervene per policy. Determine patient 's food preferences and provide high-protein, high-caloric foods as appropriate. Outcome: Progressing Goal: Skin integrity is maintained or improved Assess and monitor skin integrity. Identify patients at risk for skin breakdown on admission and per policy. Collaborate with interdisciplinary team and initiat e plans and interventions as needed. Outcome: Progressing Problem: Risk for Falls Goal: Patient will not fall during their Inpatient stay Outcome: Progressing * Operative Note - Adelaida Olivas MD - 04/09/2017 6:35 AM CDT PRIMARY SURGEON: Dr. Adelaida Olivas NATURAL RESOURCE OFFICER: Geraldine Neves CST ESTIMATED BLOOD LOSS: Minimal. No intraoperative complications. PREOPERATIVE DIAGNOSIS: Failed tibiotalar arthrodesis. POSTOPERATIVE DIAGNOSIS: Failed tibiotalar arthrodesis. OPERATIONS PERFORMED: Removal of hardware through 3 separate incisions, Valier s tendon lengthening, tibiotalar fusion, fibular osteotomy with bone stimulator insertion and open ankle arthrodesis. COMPLICATIONS: There were no intraoperative complications. OPERATIVE IMPLANTS: Include 8.0 mm cannulated screw from [employer] with the [employer] lateral fusion plate, no intraoperative complications. PREOPERATIVE ANTIBIOTICS: IV Ancef. OPERATIVE INDICATIONS: Ms. 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 She underst ands the risks, benefits, expectations, and limitations of current procedure, wh ich was performed as follows. DESCRIPTION OF PROCEDURE: After being correctly identified in the preoperative holding area and after having her left lower extremity marked and after informed consent was verified and obtained, Ms. Benítez was brought into the operating jyothi te where she was placed in a semilateral position. All bony prominences were we ll-padded. Once this had been accomplished and a time-out was performed, Esmarc h exsanguination was used to exsanguinate the patient's limb. The tourniquet wa s raised. An incision was made over the patient's previous hardware. Blunt dis section was carried down onto the posterolateral screw as well as onto the media l screw, 2 medial incisions were in fact made to remove the 2 medial screws. On ce this had been accomplished, an incision was made along the distal aspect of t he patient's fibula. Dissection was carried down onto the fibula itself which w as resected and morselized for use for later graft. 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 Two flat cuts were made both in the tibia and the talus in order to reapproximate the tibiotalar a rthrodesis site. Once done, a guidewire for 8.0 mm cannulated screw from [employer] was subsequently placed onto the anterolateral portion of the patient's distal fibula into the talus. This yielded excellent compression. Clinical alignment was checked, a [employer] lateral fusion plate was subsequently applied usi ng a combination of locking and nonlocking plates. A bone stimulator was subseq uently applied over the anterior aspect of the patient's distal tibiotalar arthr odesis site. Once done, final films were taken. All the wounds were irrigated. It should be noted that the peroneal tendons were subsequently lengthened in o rder to facilitate this fusion. This was done via Z-lengthening under direct vi sualization with Metzenbaum scissors. Once done, all the wounds were irrigated. Final films were taken. Closure then took place in a layered fashion with 2-0 Vicryl, 3-0 Vicryl, and running nylon suture. The patient was subsequently roldan beth into a bulky Bautista dressing and then was taken to the recovery room in stabl e condition. I was present throughout the entire case. All sponge and instrume nt counts were correct. The patient had brisk cap refill to her toes and soft c ompartments at the conclusion of the case. documented in this encounter Plan of Treatment Care Team Description Date [place] [address] [place] [id number] [phone] 02/29/2020 Office Visit Urology documented as of this encounter Procedures Comments Procedure Name Priority Date/Time Associated Diag nosis GLUCOSE POC Routine 04/12/2017 12:03 PM CDT GLUCOSE POC Routine 04/12/2017 7:13 AM CDT GLUCOSE POC Routine 04/11/2017 10:00 PM CDT GLUCOSE POC Routine 04/11/2017 4:50 PM CDT GLUCOSE POC Routine 04/11/2017 11:28 AM CDT GLUCOSE POC Routine 04/11/2017 7:48 AM CDT GLUCOSE POC Routine 04/10/2017 9:06 PM CDT GLUCOSE POC Routine 04/10/2017 4:46 PM CDT GLUCOSE POC Routine 04/10/2017 12:12 PM CDT BASIC METABOLIC PANEL Routine 04/10/2017 10:18 AM CDT COMPLETE BLOOD COUNT Routine 04/10/2017 8:42 AM CDT GLUCOSE POC Routine 04/10/2017 7:38 AM CDT GLUCOSE POC Routine 04/10/2017 3:41 AM CDT GLUCOSE POC Routine 04/10/2017 12:45 AM CDT GLUCOSE POC Routine 04/09/2017 9:10 PM CDT GLUCOSE POC Routine 04/09/2017 5:10 PM CDT GLUCOSE POC Routine 04/09/2017 3:40 PM CDT XR ANKLE MIN 3 VIEWS LEFT Routine 04/09/2017 3:18 PM CDT REMOVAL, HARDWARE, FOOT 04/09/2017 M19.072 OR ANKLE 12:[address] OLIVAS NOTIFYING VENDORS BASIC METABOLIC PANEL Routine 04/09/2017 10:50 AM CDT GLUCOSE POC Routine 04/09/2017 10:07 AM CDT documented in this encounter Results * GLUCOSE POC (04/12/2017 12:03 PM CDT) Only the most recent of 16 results within the time period is included. Glucose POC 180 (H) 70 - 100 mg/dL [facility] Specimen Performing Organization Address City/State/Zipcode Ph one Number [facility] [address] [facility] [place], [place] [id number] [facility] [address] [place] [facility] [place] [address], [facility] * Basic Metabolic Panel (04/10/2017 10:18 AM CDT) Only the most recent of 2 results within the time period is included. [facility] Signature Sodium 139 133 - 147 MEQ/L [facility] Potassium 4.2 3.5 - 5.3 MEQ/L [facility] Chloride 102 96 - 112 MEQ/L [facility] Carbon Dioxide 25 20 - 32 MEQ/L [facility] Anion Gap 11 5 - 17 [facility] Calcium 8.8 8.4 - 10.5 mg/dL [facility] Glucose 209 (H) 70 - 100 mg/dL [facility] Blood Urea 18 7 - 26 mg/dL [facility] Nitrogen [facility] Creatinine 1.0 0.4 - 1.1 mg/dL [facility] eGFR Female AA 67 60 - 200 [facility] Comment: [facility] AGUSTINS Chronic Kidney Disease less [facility] than 60 mL/min/1.73 sq.m Kidney failure less than 15 mL/min/1.73 sq.m eGFR Female 56 (L) 60 - 200 [facility] Non-AA Comment: [facility] AGUSTINS Chronic Kidney Disease less [facility] than 60 mL/min/1.73 sq.m Kidney failure less than 15 mL/min/1.73 sq.m Specimen Blood Narrative Performed At This order is a replacement of the rejected order wit h accession number [facility] - [id number]. [facility]I [facility] Performing Organization Address City/State/Zipcode Ph one Number [facility] [address] [facility] [place] [address] [facility] [address] [facility] [place] [address], [facility] * Complete Blood Count (04/10/2017 8:42 AM CDT) WBC 18.60 (H) 4.00 - 11.00 TH/uL [facility] RBC 4.04 4.00 - 5.00 MIL/uL [facility] Hemoglobin 13.4 12.0 - 15.0 g/dL [facility] Hematocrit 40 36 - 45 % [facility] MCV 99 80 - 99 fL [facility] MCH 33 27 - 34 pg [facility] MCHC 34 32 - 36 % [facility] [facility] R[facility] 13.5 9.0 - 14.5 % [facility] Platelet Count 217 140 - 400 TH/uL [facility] MPV 10.5 9.4 - 12.3 fL [facility] Specimen Blood Performing Organization Address City/State/Zipcode Ph one Number [facility] [address] [facility] [place] [address] [facility] [address] [place] [facility] [place] [address], [facility] * XR Ankle min 3 views left (04/09/2017 3:18 PM CDT) Specimen Impressions Performed At FINDINGS/IMPRESSION: LEVI Intra-operative fluoroscopy was utilize d. Fluoroscopy time was 113.4 seconds. Initial images demonstrate removal of p reviously visualized surgical screws seen for prior tibiotalar arthro desis. Advanced ankle arthrosis is noted. Subsequent images demonstrate changes of fibular osteotomy, as well as tibiotalar arthrodesis, with si de plate and multiple cortical screws seen. Stimulator/generator devic e is also noted in the adjacent soft tissues. Please see operative note for full deta ils regarding real-time findings. READING SITE: [facility] [place] . Narrative Performed At Patient: ISIAH BENÍTEZ Sex#: Paulina # 1950 Jose#: [id number] Location: [facility] MA[facility] OR NONE Procedure Requested: [id number] XR ANKLE MIN 3 VIEWS LEFT Reason for Exam: ankle pain Exam Ordered: 04/09/2017 12 54 Exam Date/Time: 04/09/2017 151 8 Begin exam date/time: 04/09/2017 125 4 XR ANKLE MIN 3 VIEWS LEFT INDICATION: ankle pain COMPARISON: CT from 02/18/2017. Procedure Note Interface, Rad Results In - 04/09/2017 4:05 PM CDT Patient: ISIAH BENÍTEZ Sex#: Paulina # 1950 Jose#: [id number] Location: [facility] OR NONE Procedure Requested: [id number] XR ANKLE MIN 3 VIEWS LEFT Reason for Exam: ankle pain Exam Ordered: 04/09/2017 1254 Exam Date/Time: 04/09/2017 1518 Begin exam date/time: 04/09/2017 1254 XR ANKLE MIN 3 VIEWS LEFT INDICATION: ankle pain COMPARISON: CT from 02/18/2017. IMPRESSION FINDINGS/IMPRESSION: Intra-operative fluoroscopy was utilized. Fluoroscopy time was 113.4 seconds. Initial images demonstrate removal of previously visualized surgical screws seen for prior tibiotalar arthrodesis. Advanced ankle arthrosis is noted. Subsequent images demonstrate changes of fibular osteotomy, as well as tibiotalar arthrodesis, with side plate and multiple cortical screws seen. Stimulator/generator device is also noted in the adjacent soft tissues. Please see operative note for full details regarding real-time findings. READING SITE: [facility] [place]. Performing Organization Address City/State/Zipcode Ph one Edgar SIMS documented in this encounter Visit Diagnoses Diagnosis Type 2 diabetes mellitus with hyperglyc emia, 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) Benign essential HTN COPD (chronic obstructive pulmonary dis ease) (HCC) Chronic airway obstruction, not elsewhe re classified Essential hypertension Unspecified essential hypertension SASHA on CPAP Chronic pain Other chronic pain Closed left ankle fracture documented in this encounter Administered Medications Action Date Dose Rate Site Medication Order MAR Action acetaminophen (TYLENOL) suppository 325-650 mg 325-650 mg, Rectal, Every 6 hours PRN, headaches, fever, Starting 04/09/17 at 1708, Do not exceed 4 GM/DAY of acetaminophen. If 65 or older do not exceed 3 GM/DAY. If chronic alcoholic d o not exceed 2 GM/DAY., 04/12/2017 7:42 AM CDT 650 mg acetaminophen (TYLENOL) tablet 325-650 Given mg 325-650 mg, Oral, Every 6 hours PRN, headaches, fever, Starting Wed04/09/17 at 1708, Do not exceed 4 GM/DAY of acetaminophen. If 65 or older do not exceed 3 GM/DAY. If chronic alcoholic d o not exceed 2 GM/DAY., 04/11/2017 10:00 PM CDT 25 mg amitriptyline (ELAVIL) tablet 25 mg Given 25 mg, Oral, Nightly, First dose on Wed04/09/17 at 2100 25 mg Given 04/10/2017 8:30 PM CDT 25 mg Given 04/09/2017 8:36 PM CDT 04/12/2017 8:48 AM CDT 5 mg amLODIPine (NORVASC) tablet 5 mg Given 5 mg, Oral, Daily, First dose on Wed04/09/17 at 1730 5 mg Given 04/11/2017 8:03 AM CDT 5 mg Given 04/10/2017 8:08 AM CDT 04/10/2017 6:10 AM CDT 3 g 160 mL/hr ceFAZolin (ANCEF) 3 g in sodium chloride New Bag (NS) 0.9 % 50 mL IVPB 3 g, Intravenous, at 160 mL/hr, Every 8 hours, Indications: PERIOPERATIVE, Firs t dose (after last modification) on Wed04/09/17 at 2100, For 2 doses 3 g 160 mL/hr New Bag 04/09/2017 8:31 PM CDT 04/12/2017 8:48 AM CDT 20 mg citalopram (CeleXA) tablet 20 mg Given 20 mg, Oral, Daily, First dose on Wed04/09/17 at 1730 20 mg Given 04/11/2017 8:03 AM CDT 20 mg Given 04/10/2017 8:08 AM CDT 04/09/2017 11:05 AM CDT 4 mg dexamethasone (DECADRON) injection 4 mg Given 4 mg, Intravenous, Once, Wed04/09/17 at 1045, For 1 dose, Pre-op dextrose 10% (D10W) bolus 125-250 mL 125-250 mL, Intravenous, at 500-1,000 mL/hr, As needed, low blood sugar, Starting Wed04/09/17 at 2048, Give if patient NPO and IV access already available. If no IV access give Glucagon SQ or IM in arm and turn patient on side. Recheck BG in 15 minutes. Repeat until glucose greater than 80., dextrose 50% (D50W) 50 % injection 25-5 0 mL 25-50 mL, Intravenous, As needed, low blood sugar, Starting Wed04/09/17 at 2048, Give if patient NPO and IV access already available. If no IV access giv e Glucagon SQ or IM in arm and turn patient on side. Recheck BG in 15 minutes. Repeat until glucose greater than 80., dextrose 50% (D50W) syringe 25-50 mL 25-50 mL, Intravenous, As needed, low blood sugar, Starting Wed04/09/17 at 2048, Give if patient NPO and IV access already available. If no IV access giv e Glucagon SQ or IM in arm and turn patient on side. Recheck BG in 15 minutes. Repeat until glucose greater than 80., 04/12/2017 8:48 AM CDT 100 mg docusate sodium (COLACE) capsule 100 mg Given 100 mg, Oral, 2 times daily PRN, constipation, first line therapy with polyethlene glycol, Starting Wed 7 at 1708, Hold these medications if patient has had loose stool or diarrhea within previous 24 hours. DO NOT CRUSH OR CHEW., 100 mg Given 04/10/2017 8:08 AM CDT 04/12/2017 8:48 AM CDT 40 mg Abdomina l Tissue enoxaparin (LOVENOX) syringe 40 mg Given 40 mg, Subcutaneous, Every 24 hours scheduled, First dose on Wed04/09/17 at 1730, Pharmacy may adjust dose for obesity or renal impairment., 40 mg Abdominal Tissue Given 04/11/2017 8:03 AM CDT 40 mg Abdominal Tissue Given 04/10/2017 8:05 AM CDT 04/09/2017 11:05 AM CDT 20 mg famotidine (PEPCID) injection 20 mg Given 20 mg, Intravenous, Once, Wed04/09/17 a t 1045, For 1 dose, Pre-op 04/10/2017 10:24 AM CDT 1 patch Other fentaNYL (DURAGESIC) 50 mcg/hr patch 1 Patch patch Applied 1 patch, Transdermal, Administer over 7 2 Hours, Every 72 hours, First dose on 04/10/17 at 1030, Check patient for fentanyl patch daily Disposal: Flush patch down toilet. Removal: Adhesive side stuck together, 04/11/2017 10:51 PM CDT 25 mcg fentaNYL (SUBLIMAZE) injection 25-50 mcg Given 25-50 mcg, Intravenous, Every 1 hour prn, severe pain (pain score 7-10), breakthrough pain, or if patient unable to tolerate oral pain medications, Starting Wed04/09/17 at 1708, Administe r over 2 minutes; max dose for IVP is 2 mcg/kg. Note: Limit does not apply to patients who may be tolerant to opioid therapy or on continuous IV or PO opiat e therapy., 50 mcg Given 04/11/2017 8:37 PM CDT 50 mcg Given 04/11/2017 4:31 PM CDT 04/12/2017 8:59 AM CDT 1 puff fluticasone-vilanterol (BREO ELLIPTA) Given 200-25 mcg/actuation inhaler 1 puff 1 puff, Inhalation, Daily, Indications: maintenance therapy for asthma, First dose on Wed04/09/17 at 1730, Rinse mout h with water after use if patient not on vent. , 1 puff Given 04/11/2017 8:03 AM CDT 1 puff Given 04/10/2017 7:58 AM CDT 04/12/2017 3:31 PM CDT 300 mg gabapentin (NEURONTIN) capsule 300 mg Given 300 mg, Oral, 3 times daily, First dose on Wed04/09/17 at 1730 300 mg Given 04/12/2017 8:48 AM CDT 300 mg Given 04/11/2017 10:00 PM CDT glucagon (GLUCAGEN) injection 1 mg 1 mg, Intramuscular, As needed, low blood sugar, low blood sugar, Starting Wed04/09/17 at 2048, If no IV access. May give IM or SQ in arm and turn patient on side., glucagon (GLUCAGEN) injection 1 mg 1 mg, Subcutaneous, As needed, low bloo d sugar, low blood sugar, Starting Wed04/09/17 at 2049, If no IV access. May give IM or SQ in arm and turn patient o n side., 04/09/2017 8:37 PM CDT 15 Units Abdomina l Tissue insulin glargine (LANTUS) injection 15 Given Units 15 Units, Subcutaneous, Nightly, First dose on Wed04/09/17 at 2100 04/11/2017 10:01 PM CDT 18 Units Abdomina l Tissue insulin glargine (LANTUS) injection 18 Given Units 18 Units, Subcutaneous, Nightly, First dose (after last modification) on Wed04/10/17 at 2100 18 Units Left Arm Given 04/10/2017 8:32 PM CDT 04/10/2017 11:30 AM CDT 2 Units Abdomina l Tissue insulin lispro (HumaLOG) injection 1-6 Given Units 1-6 Units, Subcutaneous, 4 times daily before meals and nightly, First dose on Wed04/09/17 at 2115, LEVEL 2 Give in addition to scheduled [...] blood glucose check - dose per table, 1 Units Abdominal Tissue Given 04/10/2017 8:04 AM CDT 4 Units Abdominal Tissue Given 04/09/2017 10:19 PM CDT 04/12/2017 12:34 PM CDT 2 Units Abdomina l Tissue insulin lispro (HumaLOG) injection 2-12 Given Units 2-12 Units, Subcutaneous, 4 times daily before meals and nightly, First dose on 04/10/17 at 1300, LEVEL 4 Give in addition to scheduled [...] check - dose per table, 2 Units Abdominal Tissue Given 04/12/2017 7:43 AM CDT 4 Units Abdominal Tissue Given 04/11/2017 10:11 PM CDT 04/12/2017 3:22 PM CDT 3 mL ipratropium-albuterol (DUO-NEB) 0.5-3 Given mg/3 mL nebulizer solution 3 mL 3 mL, Inhalation, 4 times daily, First dose on Wed04/09/17 at 1730 3 mL Given 04/12/2017 11:52 AM CDT 3 mL Given 04/12/2017 8:59 AM CDT 04/09/2017 2:15 PM CDT lactated ringers infusion New Bag 50 mL/hr, Intravenous, Continuous, Starting Wed04/09/17 at 1045, Pre-op 50 mL/hr 50 mL/hr New Bag 04/09/2017 11:04 AM CDT metaxalone (SKELAXIN) tablet 400 mg 400 mg, Oral, 3 times daily PRN, muscle spasms, Starting Wed04/12/17 at 0908 metoclopramide (REGLAN) injection 5-10 mg 5-10 mg, Intravenous, Every 6 hours PRN , nausea, vomiting, Starting Wed04/09/17 at 1708, Use if treatment failure or contraindications to first line therapy 5 10 mg IV/IM; every 10 minutes up to 10 mg within 30 minutes. If >65, do not exceed 5 mg total over 30 minute titration period. May repeat every 6 hours as needed., metoclopramide (REGLAN) injection 5-10 mg 5-10 mg, Intramuscular, Every 6 hours PRN, nausea, vomiting, Starting Wed04/09/17 at 1708, Use if treatment failure or contraindications to first line therapy 5 10 mg IV/IM; every 10 minutes up to 10 mg within 30 minutes. If >65, do not exceed 5 mg total over 30 minute titration period. May repeat every 6 hours as needed., 04/12/2017 8:48 AM CDT 100 mg metoprolol tartrate (LOPRESSOR) tablet Given 100 mg 100 mg, Oral, 2 times daily, First dose on Wed04/09/17 at 2100 100 mg Given 04/11/2017 10:02 PM CDT 100 mg Given 04/11/2017 8:03 AM CDT 04/10/2017 11:45 PM CDT 4 mg ondansetron (ZOFRAN) injection 4 mg Given 4 mg, Intravenous, Every 6 hours PRN, nausea, vomiting, Starting Wed04/09/17 at 1708, If treatment failure or contraindication to first or second sanjay e agent use Do NOT use ondansetron if the patient is actively vomiting or has received ondansetron within the past 6 hours including preoperatively or intraoperatively., 4 mg Given 04/10/2017 2:15 PM CDT 04/10/2017 10:14 AM CDT 20 mg oxyCODONE (OxyCONTIN) 12 hr Given crush-resistant tablet 20 mg 20 mg, Oral, Every 12 hours scheduled, First dose on Wed04/09/17 at 2100, For 2 doses, DO NOT CRUSH OR CHEW., 20 mg Given 04/09/2017 8:33 PM CDT 04/12/2017 3:31 PM CDT 10 mg oxyCODONE (ROXICODONE) immediate release Given tablet 5-10 mg 5-10 mg, Oral, Every 4 hours PRN, sever e pain (pain score 7-10), Starting Wed04/09/17 at 1708, Use first line for severe pain (7-10), 10 mg Given 04/12/2017 11:23 AM CDT 10 mg Given 04/12/2017 6:33 AM CDT 04/12/2017 8:48 AM CDT 17 g polyethylene glycol (GLYCOLAX) packet 17 Given g 17 g, Oral, Daily PRN, constipation, first line therapy with docusate, Starting Wed04/09/17 at 1708, Hold thes e medications if patient has had loose stool or diarrhea within previous 24 hours., 17 g Given 04/11/2017 9:07 AM CDT 17 g Given 04/10/2017 8:04 AM CDT prochlorperazine (COMPAZINE) suppositor y 25 mg 25 mg, Rectal, Every 12 hours PRN, nausea, vomiting, Starting Wed04/09/17 at 1708, First-line therapy, prochlorperazine (COMPAZINE) tablet 2.5-10 mg 2.5-10 mg, Oral, Every 6 hours PRN, nausea, vomiting, Starting Wed04/09/17 at 1708, First-line therapy, 04/10/2017 5:33 AM CDT 12.5 mg Right Ve ntrogluteal promethazine (PHENERGAN) injection Given 6.25-12.5 mg 6.25-12.5 mg, Intramuscular, Every 6 hours PRN, nausea, vomiting, Starting Wed04/09/17 at 1708, First-line therapy , 04/09/2017 6:24 PM CDT 50 mL/hr 50 mL/hr sodium chloride 0.9% infusion New Bag 50 mL/hr, Intravenous, Continuous, Starting Wed04/09/17 at 1730 documented in this encounter
--- OUTSIDE RECORDS SUMMARY | 2019-11-28 22:29 | XMS REPORT | Encounter Summary ---
Author Author [facility] Organization [facility] Address Unknown Phone Unavailable Care Team Providers Care Entry Level Management Name Role Phone Ebony Sharp MD PCP Reason for Visit * Auth/Cert Referred By Contact Referred To Contact Status Reason Specialty Diagnoses / Procedures Diagnoses M19.072 P rocedures [place] ARTHRODESIS,ANKLE, OPEN LEFT ANKLE REMOVAL OF HARDWARE REVISION ARTHRODESIS LEFT ANKLE Encounter Details Care Team Description Date Type Department Winston Hendricks MD [address] [place] [address] [phone] Bernardino Herrera RN ROOM SERVICE SUPERVISOR [address] [place] [address] [phone] 04/09/2017 Anesthesia [facility] [address] [place] [address] Anesthesia Record Responsible Anesthesiologist Anesthesia Start Time Anesthesi a Stop Time Procedure Name Winston Hendricks MD 04/09/17 1242 04/09/17 1536 LEFT ANKLE REMOVAL OF HARDWARE WITH REVISION LEFT ANKLE ARTHRODESIS (Left Ankle) Date Time Event Comment 1017 Anesthesia 2017 Initial Contact 1024 1050 AN Equip Check 1242 An Start 1242 In room 1242 An Start Data 1243 Pt eval immediately prior to anesthesia 1245 Preoxygenated Prior to Induction 1247 An Induction 1249 An LMA 1249 PreOp Abx complete 1249 Anesthesia Ready 1307 Procedure start - Primary Case 1307 Spontaneous respirations 1507 Tourniquet down 1528 Procedure stop - Primary case 1528 LMA Removed 1528 Spontaneous respirations 1528 an stop data 1530 Out of Room 1536 An Stop Meds Name Total midazolam (VERSED) injection 1 mg/mL 4 mg fentaNYL (SUBLIMAZE) injection 50 mcg/mL 50 mcg lidocaine 2% (PF) 100 mg propofol 10mg/mL 150 mg ondansetron 2mg/mL 4 mg ceFAZolin (ANCEF) injection 2 g 2 g lactated ringers infusion 1,300 mL * Name Cell Saver Blood Intake O2 N2O Air EtSEVO EtISO EtDES EtN2O * No blood administrations on file. Removal Type Details Placement 04/12/17 0747 by Terrie Gallagher RN Peripheral Date: 04/09/17; Time: 1055; Size 04/09 1055 by Jermaine IV (gauge): 20 G; Orientation: Left; Kika bello RN Location: Forearm; Local Anesthetic: Injectable; Technique: Anatomical landmarks; Insertion Attempts: Other; Inserted By: Dr. Hernandez; Removal Date: 04/12/17; Removal Time: 0747 04/09/17 1528 by Marisa Masters RN ROOM SERVICE SUPERVISOR Non-Surgic Date: 04/09/17; Time: 1249; Able to mas k 04/09/17 1249 by Bernardino lyons Airway ventilate prior to placement: Yes; Arslan lewis RN ROOM SERVICE SUPERVISOR Placed By: Body Hanger; Site: Oral; Device: LMA; Size: 4; Placement Verifie d By: Auscultation, Capnometry; Removal Date: 04/09/17; Removal Time: 1528 05/25/18 1011 by Sheryl Milner RN (Retired 04/09/17; 1338; Foot; Left; 05/25/18; 04/09/17 1338 by Isidra 09/14/18; 1011 ADAM Moya search "wound" if placing new) Wound - Incision Assessment 04/11/17 0943 by Floresita Chen RN Closed/Suc 04/09/17; 1501; Surgeon; Left; LLQ; 1501 by Isidra tijusto Drain Accordion; Removed by patient ADAM Moya documented in this encounter Social History Date [...] history available. documented as of this encounter Procedure Notes * Ariel Hernandez MD - 04/09/2017 5:58 PM CDT Associated Order(s): ANESTHESIA PERIPHERAL BLOCK Peripheral Block Patient location during procedure: pre-op Start time: 04/09/2017 10:36 AM End time: 04/09/2017 10:41 AM Staffing maritza Performed by: anesthesiologist Preanesthetic Checklist Completed: patient identified, IV checked, site marked, risks and benefits discu ssed, surgical consent, monitors and equipment checked, pre-op evaluation and ti meout performed Timeout Performed: 10:29 Peripheral Block Diagnosis: Post op Pain Referring Physician: franchesca Patient position: supine Prep: alcohol swabs Patient monitoring: heart rate and continuous pulse ox Block Type: adductor canal Laterality: left Injection technique: single-shot Procedures: ultrasound guided , copy of ultrasound film in chart. Local infiltration: bupivicaine and epinephrine 1:400,000 Infiltration strength: 0.38 % Dose: 15 mL Needle Needle type: nerve stimulator Needle gauge: 22 G Needle localization: anatomical landmarks and ultrasound guidance Test dose: negative Assessment Injection assessment: negative aspiration for heme Paresthesia pain: none Heart rate change: no Slow fractionated injection with intermittent aspirations: yes Additional Notes Patient tolerated procedure well. Reason for block: per surgeon's verified order for post-op pain managment * Ariel Hernandez MD - 04/09/2017 5:57 PM CDT Associated Order(s): ANESTHESIA PERIPHERAL BLOCK Peripheral Block Patient location during procedure: pre-op Start time: 04/09/2017 10:29 AM End time: 04/09/2017 10:35 AM Staffing Performed by: anesthesiologist Preanesthetic Checklist Completed: patient identified, IV checked, site marked, risks and benefits discu ssed, surgical consent, monitors and equipment checked, pre-op evaluation and ti meout performed Timeout Performed: 10:29 Peripheral Block Diagnosis: Post op Pain Referring Physician: franchesca Patient position: right lateral decubitus Prep: alcohol swabs Patient monitoring: heart rate and continuous pulse ox Block Type: lateral popliteal Laterality: left Injection technique: single-shot Procedures: nerve stimulator , copy of ultrasound film in chart. Local infiltration: bupivicaine and epinephrine 1:400,000 Infiltration strength: 0.38 % Dose: 30 mL Needle Needle type: nerve stimulator Needle gauge: 22 G Needle localization: nerve stimulator, anatomical landmarks and ultrasound avel nce Test dose: negative Assessment Injection assessment: negative aspiration for heme and local visualized surround ing nerve on ultrasound Paresthesia pain: none Heart rate change: no Slow fractionated injection with intermittent aspirations: yes Additional Notes Patient tolerated procedure well. Midazolam 2 mg IV for sedation Reason for block: per surgeon's verified order for post-op pain managment documented in this encounter Miscellaneous Notes * Addendum Note - Ariel Hernandez MD - 04/09/2017 6:01 PM CDT Addendum created 04/09/171800 by Ariel Hernandez MD Anesthesia Intra Blocks edited, Anesthesia Intra Meds edited, Child order relea sed for a procedure order, Sign clinical note * Anesthesia Postprocedure Evaluation - Ariel Hernandez MD - 04/09/2017 4:58 PM CDT Patient: Caren Do Earline Procedure(s): LEFT ANKLE REMOVAL OF HARDWARE WITH REVISION LEFT ANKLE ARTHRODESIS Final Anesthesia Type Performed: general *Block Type (if peripheral regional or epidural used): No value filed. Patient location: PACU Last Vitals: ANE Post Eval Vitals Flowsheet Row Most Recent Value BP 126/76 filed at 04/09/2017 1658 Pulse 75 filed at 04/09/2017 1658 Temp 36.9 C (98.4 F) filed at 04/09/2017 1658 Resp 18 filed at 04/09/2017 1658 SpO2 98 % filed at 04/09/2017 1658 Level of consciousness: awake, alert and oriented Post-anesthesia pain: adequate analgesia Airway patency: patent Respiratory: unassisted Cardiovascular: stable and blood pressure at baseline Hydration: adequate PostOp Nausea/Vomiting: controlled Difficult Airway: no Anesthetic complications: no Discharge from anesthesia care: Appropriate for discharge from anesthesia care, no apparent anesthesia related complications * Anesthesia Preprocedure Evaluation - Ariel Hernandez MD - 04/09/2017 10:21 AM CDT Relevant Problems No active problems are marked relevant to this note. Anesthesia Evaluation No history of anesthetic complications NO history of tobacco use. Airway Mallampati: II TM distance: >3 FB Neck ROM: full Dental Pulmonary (+) COPD (uses o2 prn at home), sleep apnea on CPAP, Cardiovascular (+) hypertension, Neuro/Psych GI/Hepatic/Renal (+) renal disease, (-) GERD Endo/Other (+) diabetes mellitus type 2 using insulin, Abdominal (+) obese, Obstetrics HEENT Negative HEENT ROS Musculoskeletal Negative musculoskeletal ROS Anesthesia Plan ASA 3 Type: general () Plan to include: LMA Anesthetic plan and risks discussed with patient. Plan discussed with ROOM SERVICE SUPERVISOR. Post-operative analgesia: routine analgesia and antiemetics and nerve block for post-op analgesia Recovery plan: PACU Risk factors for PONV: female and non smoker PONV risk level: moderate documented in this encounter Plan of Treatment Care Team Description Date [place] [address] [place] [address] [phone] 02/29/2020 Office Visit Urology Date/Time Name Type Priority Associated Diag noses 04/09/2017 5:58 PM CDT ANESTHESIA PERIPHERAL WA Charge Routine BLOCK 04/09/2017 5:59 PM CDT ANESTHESIA PERIPHERAL WA Charge Routine BLOCK documented as of this encounter Visit Diagnoses Not on filedocumented in this encounter Administered Medications Action Date Dose Rate Site Medication Order MAR Action 04/09/2017 12:52 PM CDT 2 g ceFAZolin (ANCEF) injection 2 g Given 2 g, Intravenous, 60 min pre-op, Indications: PERIOPERATIVE, Starting Fr i 04/09/17 at 0940, For 1 dose, Pre-op, I f giving IV push, reconstitute each vial with 10 ml sterile water and give over 2-3 minutes, 04/09/2017 12:53 PM CDT 50 mcg fentaNYL (SUBLIMAZE) injection Given Intravenous, As needed, Starting Wed04/09/17 at 1253, Anesthesia Intra-op 04/09/2017 2:15 PM CDT lactated ringers infusion New Bag 50 mL/hr, Intravenous, Continuous, Starting Wed04/09/17 at 1045, Pre-op 50 mL/hr 50 mL/hr New Bag 04/09/2017 11:04 AM CDT 04/09/2017 12:47 PM CDT 100 mg lidocaine (pf) (XYLOCAINE-MPF) 20 mg/mL Given (2 %) injection Intravenous, As needed, Starting Wed04/09/17 at 1247, Anesthesia Intra-op 04/09/2017 12:42 PM CDT 2 mg midazolam (PF) (VERSED) injection Given Intravenous, As needed, Starting Wed04/09/17 at 1242, Anesthesia Intra-op 2 mg Given 04/09/2017 10:30 AM CDT 04/09/2017 2:19 PM CDT 4 mg ondansetron (ZOFRAN) injection Given Intravenous, As needed, nausea, vomiting, Starting Wed04/09/17 at 1419, Anesthesia Intra-op 04/09/2017 12:47 PM CDT 150 mg propofol (DIPRIVAN) injection Given Intravenous, As needed, Starting Wed04/09/17 at 1247, Anesthesia Intra-op documented in this encounter
--- OUTSIDE RECORDS SUMMARY | 2019-11-28 22:29 | XMS REPORT | Encounter Summary ---
Author Author [facility] Organization [facility] Address Unknown Phone Unavailable Care Team Providers Care Api Architect Name Role Phone Ebony Sharp MD PCP Encounter Details Care Team Description Date Type Department Adelaida Olivas MD [address] [facility] [address] [place], [place] [id number] 04/09/2017 [facility] [place] [facility] ion Encounter Specialists [address] [facility] [address] [place], [place] [id number] Social History Date Tobacco Use Types Packs/Day [...] encounter Miscellaneous Notes * Operative Note - Adelaida Olivas MD - 04/20/2017 10:12 AM CDT documented in this encounter Plan of Treatment Care Team Description Date [place] [address] [place] [address] [phone] 02/29/2020 Office Visit Urology documented as of this encounter Visit Diagnoses Not on filedocumented in this encounter Additional Health Concerns Resolved Time Infection Noted Time 04/19/2018 12:13 PM CDT Influenza 08/30/2017 10:13 AM JOINTER OPERATOR 08/30/2019 1:09 PM JOINTER OPERATOR Influenza - Rule Out 08/30/2019 11:32 AM JOINTER OPERATOR 09/17/2019 8:17 AM JOINTER OPERATOR RSV 08/31/2019 6:35 PM JOINTER OPERATOR documented as of this encounter
--- OUTSIDE RECORDS SUMMARY | 2019-11-28 22:29 | XMS REPORT | Encounter Summary ---
Author Author [facility] Organization [facility] Address Unknown Phone Unavailable Care Team Providers Care Manager Willow Name Role Phone Ebony Sharp MD PCP Encounter Details Care Team Description Date Type Department Ebony Sharp MD [address] [facility] [address] [place] [address] [phone] Essential hypertension; Hyperlipidemia, unspecified hyperlipidemia type; IDDM (insulin dependent diabetes mellitus) (HCC) 04/08/2017 Lab [facility] Primar y Care - [facility] Bond [address] [facility] [address] [place], [place] [id number] Social History Date Tobacco Use Types Packs/Day [...] Description Date [place] [address] [place] [address] [phone] 02/29/2020 Office Visit Urology documented as of this encounter Procedures Comments Procedure Name Priority Date/Time Associated Diag nosis MICROALBUMIN RANDOM Routine 04/08/2017 IDDM (insu sanjay dependent 12:49 PM CDT diabetes mellitus) (HCC) THYROID STIMULATING Routine 04/08/2017 Essential hypertension HORMONE 12:49 PM CDT LIPID PANEL Routine 04/08/2017 Hyperlipidemia, 12:49 PM CDT unspecified hyperlipidemia type HEMOGLOBIN A1C Routine 04/08/2017 IDDM (insulin d ependent 12:49 PM CDT diabetes mellitus) (HCC) documented in this encounter Results * Microalbumin Random (04/08/2017 12:49 PM CDT) Creatinine 439.2 mg/dL [facility] Urine Random [facility] Microalbumin 10.40 mg/dL [facility] mg/dl [facility] Microalbumin/Cr 23.68 0.00 - 30.00 ug/mg [facility] 'S eatinine Ratio [facility] Specimen Performing Organization Address [facility] one Number [address] [phone] LABORATORIES * Thyroid Stimulating Hormone (04/08/2017 12:49 PM CDT) Thyroid 0.35 (L) 0.47 - 4.68 uIU/mL [facility] S Stimulating [facility] Hormone [facility] Specimen Blood Performing Organization Address [facility] one Number [address] [phone] LABORATORIES * Lipid Panel (04/08/2017 12:49 PM CDT) Cholesterol 193 100 - 200 mg/dL [facility] HDL Cholesterol 54 40 - 110 mg/dL [facility] Non-HDL 139 (H) 0 - 130 mg/dL [facility] Cholesterol [facility] Triglycerides 182 (H) 0 - 150 mg/dL [facility] LDL Cholesterol 103 (H) 0 - 99 mg/dL [facility] Cholesterol/HDL 3.6 0.0 - 4.5 [facility] Ratio [facility] Specimen Blood Performing Organization Address [facility] one Number [address] [address] LABORATORIES * Hemoglobin A1C (04/08/2017 12:49 PM CDT) Hemoglobin A1C 8.1 (H) 4.0 - 5.6 % [facility] Comment: [facility] Non-diabetic 4.0 - LABORATORIES 5.6 % Prediabetes 5.7 - 6.4 % Diabetes >= 6.5 % Specimen Blood Performing Organization Address City/State/Zipcode Ph one Number [facility] [address] [address] LABORATORIES documented in this encounter Visit Diagnoses Diagnosis Essential hypertension Unspecified essential hypertension Hyperlipidemia, unspecified hyperlipide prasanna type IDDM (insulin dependent diabetes [facility]) ([facility]) documented in this encounter
--- OUTSIDE RECORDS SUMMARY | 2019-11-28 22:29 | XMS REPORT | Encounter Summary ---
Author Author [facility] Organization [facility] Address Unknown Phone Unavailable Care Team Providers Care Java Jsf Developer Name Role Phone Ebony Sharp MD PCP Reason for Visit * Auth/Cert Referred By Contact Referred To Contact Status Reason Specialty Diagnoses / Procedures Diagnoses M19.072 P rocedures NC ARTHRODESIS,ANKLE, OPEN LEFT ANKLE REMOVAL OF HARDWARE REVISION ARTHRODESIS LEFT ANKLE Encounter Details Care Team Description Date Type Department Adelaida Olivas MD [address] [facility] [address] [place] [address] [phone] LEFT ANKLE REMOVAL OF HARDWARE WITH REVI EJ LEFT ANKLE ARTHRODESIS 04/09/2017 Surgery [facility] [address] [place] [address] Social History Date Tobacco Use Types Packs/Day [...] known as: LOPRESSOR 16. naloxone 4 mg/actuation Wallace Dose: 1 spray Use 1 spray in [...] Commonly known as: ZOCOR Adelaida Olivas [place] [id number] documented in this encounter Discharge Instructions * Appointments* Fiorella Diana RN - 04/12/2017 10:52 AM CDT Follow up appointment is scheduled for March at 4:[address] Olivas [facility] [phone] * Pre-Procedure Instructions* Renee Sanderson RN - 04/07/2017 12:03 PM CDT Current Outpatient Prescriptions Medication Sig Note: oxyCODONE-acetaminophen (PERCOCET) 10-325 mg per tablet Take 1 tablet by tanna every 4 (four) hours as needed for [...] be sent through Care Everywhere.* ENOXAPARIN INJECTION ([place]ONG [place]ER) * OXYCODONE HYDROCHLORIDE ORAL TABLET ([place]) * CONSTIPATION (ADULT) ([place]) * DIET: HIGH FIBER, DISCHARGE INSTRUCTIONS ([place]ONG [place]) documented in this encounter Medications at Time [...] Cardoza APRN - 04/12/2017 9:03 AM CDT [facility] Hospitalist - Progress Note Patient Name: Isiah Do Board Account No: [id number] Date of : 1950 Date of Admission: [...] re results (as indicated), current inpatient medications, sales consultant insurance notes and s upport staff notes with [...] Continue amlodipine COPD (chronic obstructive pulmonary disease) ([facility]) Stable, quit smoking 7 years ago. No signs of exacerbation -continue breo and nebs Chronic pain Stable, Continue gabapentin and elavil See my orders for additional details regarding this patients treatment plan. Room: [address] [place] [address] Diet: Diet-Consistent Carbohydrate (75 gm) Code Status: [...] p rochlorperazine OR prochlorperazine Honey Abdullahi APRN [facility] Please page through physician paging. > 25 minutes spent on chart review, exam, orders and patient education. >50% of this time was spent face to face with the patient. . * Maryam Cornell RN APRN - 04/12/2017 8:58 AM CDT [facility] Orthopedic Daily Progress Note Patient Name: Isiah Do Earline Date: 04/12/2017 Hospital Day # LOS: 3 days Procedure: removal of hardware and revision of left ankle arthrodesis on 04/09/[address] Adelaida Olivas Assessment/Plan: Active Problems: COPD (chronic obstructive pulmonary disease) ([facility]) Chronic pain Type 2 diabetes mellitus with [...] to display Maryam Cornell APRN- Orthopedics Pager [phone] * Heriberto Acosta MD - 04/11/2017 8:59 AM CDT [facility] Hospitalist - Progress Note Patient Name: Isiah Benítez Account No: [id number] Date of : 1950 Date of Admission: [...] results (as indicated), current inpatient medications and endoscopy support specialist notes with pertainent findings noted within the assessment/plan. Assessment/Plan Ms. Isiah Benítez is a 66 y.o. female who was admitted on 04/09/2017 with ankle p ain. Problems addressed with today's visit include: Type 2 diabetes mellitus with hyperglycemia, with long-term current use of insul in ([facility]) Mildly hyperglycemic, likely due to stress/pain- will continue current basal/marita wilbert insulin dosing and monitor. SASHA on CPAP She is trying to be more compliant with CPAP use Benign essential HTN Continue amlodipine COPD (chronic obstructive pulmonary disease) ([facility]) Stable -continue breo and nebs -quit smoking 7 years ago Closed left ankle fracture Management by primary service Chronic pain Continue gabapentin and elavil See my orders for additional details regarding this patients treatment plan. Room: [address] [place] [address] Diet: Diet-Consistent Carbohydrate (75 gm) Code Status: [...] p rochlorperazine OR prochlorperazine Heriberto Acosta MD [facility] Please page through physician paging. . * Walker Funez MD - 04/11/2017 8:50 AM CDT [facility] Orthopaedic Progress Note Subjective: Patient states pain [...] as ordered. Continue Postoperative Therapy as ordered NW LLE - elevate Discharge planning for Wednesday Electronically signed by: Walker Funez 04/11/2017 8:50 AM * Heriberto Acosta MD - 04/10/2017 12:31 PM CDT [facility] Hospitalist - Progress Note Patient Name: Isiah Do Board Account No: [id number] Date of : 1950 Date of Admission: [...] results (as indicated), current inpatient medications and endoscopy support specialist notes with pertainent findings noted within the assessment/plan. Assessment/Plan Ms. Isiah Benítez is a 66 y.o. female who was admitted on 04/09/2017 with ankle p ain. Problems addressed with today's visit include: Type 2 diabetes mellitus with hyperglycemia, with long-term current use of insul in ([facility]) Remains hyperglycemic post-op- will increase basal insulin dose and correction level and monitor. SASHA on CPAP She is trying to be more compliant with CPAP use Benign essential HTN Continue amlodipine COPD (chronic obstructive pulmonary disease) ([facility]) Stable -continue breo and nebs -quit smoking 7 years ago Closed left ankle fracture Management by primary service Chronic pain Continue gabapentin and elavil See my orders for additional details regarding this patients treatment plan. Room: [address] [place] [address] Diet: Diet-Consistent Carbohydrate (75 gm) Code Status: [...] OR prochlorperazine OR prochlorperazine Heriberto Acosta MD [facility] Please page through physician paging. . * Walker Funez MD - 04/10/2017 7:22 AM CDT [facility] Orthopaedic Progress Note Subjective: Patient states pain [...] as ordered. Continue Postoperative Therapy as ordered NWNatacha LLE - elevate Discharge planning for Wednesday Electronically signed by: Walker Funez 04/10/2017 7:23 AM documented in this encounter H&P Notes * Maryam Cornell RN MANAGER FREELANCE - 04/08/2017 4:00 [place] [address] History and Physical PATIENT NAME: Isiah Do Earline DATE: 04/08/2017 CPI: [id number] AGE: 66 y.o. : 1950 HISTORY OF [...] mutually agreed upon goals. 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 Social History: She reports [...] mo ut 2 (two) times a day. morphine [...] results (as indicated), current inpatient medications and endoscopy support specialist notes with pertainent findings noted within the assessment/plan. Assessment/PlanMs. Isiah Benítez is a 66 y.o. female who was admitted on 04/09/20 17 with complaint of left ankle surgery. IDDM (insulin dependent diabetes mellitus) ([facility]) Continue lantus 15 u qhs -not on [...] cont inue to follow. Sheryl Paredes DO [facility] Please page through physician paging. . [...] a negative biological and were sterilized in [facility] Sterile Processing Department. documented in this encounter Miscellaneous Notes * Care Progression Final DC Note - Fiorella Diana RN - 04/12/2017 2:56 PM CDT Final Discharge Note Discharge goal and plan is mutually agreed upon by patient and Care Coordinaton. [facility] [place] [facility] [place]: daughter Discharge Time: after 5:00pm Special [...] General Discharge Note Called patients preferred pharmacy [facility] [phone] to inquire cost of soraya xaparin 40mg L99hoein #30. Cost to patient is $3.30. Prescription called in and ready for pickup at discharge. Will follow for any other needs at discharge. Eugenia Diana [employer] Adoption Social Worker [phone] * Discharge Planning - Fiorella Diana RN - 04/12/2017 9:38 AM CDT Discharge Planning Interventions General Discharge Note Reviewed discharge orders. HH is not ordered for discharge. Spoke with Maryam elmore RN MANAGER FREELANCE who confirms that HH is not necessary [...] Progressing * Therapy Note - Isidra Truong, THELMA - 04/11/2017 4:04 PM CDT 04/11/17 1415 [...] RW at home Prior Function Level of [place] Independent with ADLs;Independent with ambulation;Independ ent with [...] arrival. Reports she uses 2L O2 at me PRN. She is on O2 nasal canula upon arrival into room. Pt nurse in room, admi nistering pain medication via IV. PT Received On [...] RW at home Prior Function Level of [place] Independent with ADLs;Independent with ambulation;Independ ent with [...] Walking & Moving Around Current Status (G8978) CJ $Mobility: Walking & Moving Around Goal Status [...] mutually agreed upon goals. Teri Rubio LCSW, Metal Handler [phone] Patient's Living Arrangement: House Support System: Children. [...] mutually agreed upon goals. Teri Rubio LCSW, Metal Handler [phone] Referral to see patient was placed by [...] MD and recei ves their medications from [employer] [facility] [employer] F[employer] [address] [place], [place] - [address] [address] AT [place] [address] & [facility] [address] [address] [employer] F[employer] [address] [place], [place] - [address] [place] [address] AT [facility] & [address] [facility] [phone] * Plan of Care - Terrie Gallagher [...] COPD (chronic obstructive pulmonary disease) ([facility]) Stable, quit smoking 7 years ago. No signs of exacerbation -continue breo and nebs * Assessment & Plan Note - Honey Cardoza APRN - 04/09/2017 10:00 PM CDT Associated Problem(s): Type 2 diabetes mellitus with hyperglycemia, with long-te rm current use of insulin ([facility]) Mildly hyperglycemic, likely due to stress/pain- -Continue [...] AM CDT PRIMARY SURGEON: Dr. Adelaida Olivas SEGMENT ASSEMBLER: Geraldine Neves CST ESTIMATED BLOOD LOSS: Minimal. No intraoperative complications. PREOPERATIVE DIAGNOSIS: Failed tibiotalar arthrodesis. POSTOPERATIVE DIAGNOSIS: Failed tibiotalar arthrodesis. OPERATIONS PERFORMED: Removal of hardware through 3 separate incisions, [place] s tendon lengthening, tibiotalar fusion, fibular osteotomy with bone stimulator insertion and open ankle arthrodesis. COMPLICATIONS: There were no intraoperative complications. OPERATIVE IMPLANTS: Include 8.0 mm cannulated screw from [place] with the [facility] lateral fusion plate, no intraoperative complications. PREOPERATIVE [...] guidewire for 8.0 mm cannulated screw from [employer] r was subsequently placed onto the anterolateral portion of the patient's distal fibula into the talus. This yielded excellent compression. Clinical alignment was checked, a [employer] lateral fusion plate was subsequently applied usi [...] Description Date [place] [address] [place] [address] [phone] 02/29/2020 Office Visit Urology documented as of [...] 70 - 100 mg/dL [facility] Specimen Performing Organization Address City/State/Zipcode Ph one Number [facility] [address] [place] [facility] [place] [address] [facility] [address] [place] [facility] [place] [address], [facility] * Basic Metabolic Panel (04/10/2017 10:18 AM CDT) Only the most recent of 2 results within the time period is included. [facility] Signature Sodium 139 133 - 147 MEQ/L [facility] Potassium 4.2 3.5 - 5.3 MEQ/L [facility] Chloride 102 96 - 112 MEQ/L [facility] ZAZEUTA'S [facility] Carbon Dioxide 25 20 - 32 MEQ/L [facility] Anion Gap 11 5 - 17 [facility] Z[facility] Calcium 8.8 8.4 - 10.5 mg/dL [facility] Glucose 209 (H) 70 - 100 mg/dL [facility] Blood Urea 18 7 - 26 mg/dL [facility] Nitrogen [facility] Creatinine 1.0 0.4 - 1.1 mg/dL [facility] eGFR Female AA 67 60 - 200 [facility] Comment: AL[facility] AGUSTINS Chronic Kidney Disease less [facility] than 60 mL/min/1.73 sq.m Kidney failure less than 15 mL/min/1.73 sq.m eGFR Female 56 (L) 60 - 200 [facility] Non-AA Comment: [facility] AGUSTINS Chronic Kidney Disease less [facility] than 60 mL/min/1.73 sq.m Kidney failure less than 15 mL/min/1.73 sq.m Specimen Blood Narrative Performed At This order is a replacement of the rejected order wit h accession number [facility] PRICE - [id number]. KIKI [facility] Performing Organization Address City/State/Zipcode Ph one Number [facility] [address] [place], [place] [phone] [facility] [address] [place] [address], [facility] * Complete Blood Count (04/10/2017 8:42 AM CDT) WBC 18.60 (H) 4.00 - 11.00 TH/uL [facility] RBC 4.04 4.00 - 5.00 MIL/uL [facility] Hemoglobin 13.4 12.0 - 15.0 g/dL [facility] Hematocrit 40 36 - 45 % [facility] Z[facility]ETAE[facility] MCV 99 80 - 99 fL [facility] ZAZUETA [facility] MCH 33 27 - 34 pg [facility] ZAZUETAEugenia [facility] MCHC 34 32 - 36 % [facility] ZAZUETAEugeina [facility] RDW 13.5 9.0 - 14.5 % [facility] Platelet Count 217 140 - 400 TH/uL [facility] MPV 10.5 9.4 - 12.3 fL [facility]UL ZAZ[facility]ETAEugenia [facility] Specimen Blood Performing Organization Address City/State/Zipcode Ph one Number [facility] [address] [facility] [place] [address] [facility] [address] [place] [address], [facility] * XR Ankle min 3 views [...] deta ils regarding real-time findings. READING SITE: [facility] . Narrative Performed At Patient: ISIAH BENÍTEZ Sex#: Paulina # 1950 Jose#: [id number] Location: [facility] MAIN OR NONE Procedure Requested: [id number] XR ANKLE MIN 3 VIEWS LEFT Reason for Exam: ankle pain Exam Ordered: 04/09/2017 12 54 Exam Date/Time: 04/09/2017 151 8 Begin exam date/time: 04/09/2017 125 4 XR ANKLE MIN 3 VIEWS LEFT INDICATION: ankle pain COMPARISON: CT from 02/18/2017. Procedure Note Interface, Rad Results In - 04/09/2017 4:05 PM CDT Patient: ISIAH BENÍTEZ Sex#: Paulina # 1950 Jose#: [id number] Location: [facility] MAIN OR NONE Procedure Requested: [id number] XR ANKLE MIN 3 VIEWS LEFT Reason [...] full details regarding real-time findings. READING SITE: [facility]. Performing Organization Address City/State/Zipcode one Edgar SIMS documented in this encounter Visit Diagnoses Not [...] 5 mg Given 04/10/2017 8:08 AM CDT 04/12/2017 8:48 AM CDT 20 mg citalopram (CeleXA) tablet 20 mg Given 20 mg, Oral, Daily, First dose on Wed04/09/17 at 1730 20 mg Given 04/11/2017 8:03 AM CDT 20 mg Given 04/10/2017 8:08 AM CDT dextrose 10% (D10W) bolus 125-250 mL 125-250 [...] Abdominal Tissue Given 04/10/2017 8:05 AM CDT 04/10/2017 10:24 AM CDT 1 patch Other fentaNYL (DURAGESIC) 50 mcg/hr patch 1 Patch patch Applied 1 patch, Transdermal, Administer over 7 2 Hours, Every 72 hours, First dose on 04/10/17 at 1030, Check patient for fentanyl patch daily Disposal: Flush patch down toilet. Removal: Adhesive side stuck together, 04/12/2017 8:59 AM CDT 1 puff fluticasone-vilanterol [...] arm and turn patient o n side., 04/11/2017 10:01 PM CDT 18 Units Abdomina l Tissue insulin glargine (LANTUS) injection 18 Given Units 18 Units, Subcutaneous, Nightly, First dose (after last modification) on Wed04/10/17 at 2100 18 Units Left Arm Given 04/10/2017 8:32 PM CDT 04/12/2017 12:34 PM CDT 2 Units Abdomina l Tissue insulin lispro (HumaLOG) injection 2-12 Given Units 2-12 Units, Subcutaneous, 4 times daily before meals and nightly, First dose on Wed04/10/17 at 1300, LEVEL 4 Give in addition [...] 3 mL Given 04/12/2017 8:59 AM CDT metaxalone (SKELAXIN) tablet 400 mg [...] 4 mg Given 04/10/2017 2:15 PM CDT 04/12/2017 3:31 PM CDT 10 [...] Wed04/09/17 at 1708, First-line therapy , 04/09/2017 1:10 PM CDT 1,000 mL Operativ e Site sodium chloride irrigation (NS) 0.9 % Given As needed, Starting Wed04/09/17 at 1310 , Intra-op documented in this encounter
--- OUTSIDE RECORDS SUMMARY | 2019-11-28 22:30 | XMS REPORT | Encounter Summary ---
Author Author [facility] Organization [facility] Address Unknown Phone Unavailable Care Team Providers Care Malted Milk Masher Name Role Phone Ebony Sharp MD PCP Encounter Details Care Team Description Date Type Department Merrill Harry, PT PT MISSED VISIT DOCUMENTATION 04/02/[address] [facility] Home Care and [facility] [address] [facility] [address] [place] [address] Social History Date Tobacco Use Types Packs/Day Years Used Quit: 09/14/2009 Former Smoker Smokeless Tobacco: Never Used Comments: quit 7 [...] Description Date [place] [address] [place] [address] [phone] 02/29/2020 Office Visit Urology documented as of this encounter Visit Diagnoses Not on filedocumented in this encounter
--- OUTSIDE RECORDS SUMMARY | 2019-11-28 22:30 | XMS REPORT | Encounter Summary ---
Author Author [facility] Organization [facility] Address Unknown Phone Unavailable Care Team Providers Care Athletic Instructor Name Role Phone Ebony Sharp MD PCP Reason for Visit * Reason Comments Medication Refill Encounter Details Care Team Description Date Type Department Jennifer Feng, agriculture worker Refill 03/29/2017 Refill [facility] (walk-in clinic) [address] [facility] [address] [place], [place] [id number] Social History Date Tobacco Use Types Packs/Day [...] Telephone Encounter - Ebony Sharp MD - 03/29/2017 2:47 PM CDT Please let her know that she MUST be seen at this appointment (or sooner). She is past due for diabetes check. I will ask her to find another doctor if she pu ts off appointment with me again (re: noncompliance - uncontrolled diabetes). * Telephone Encounter - Jennifer Feng RN - 03/29/2017 12:38 PM CDT Pending appt on 04/27/17. Pt is having ankle fusion on 04/09/17. documented in this encounter Plan of Treatment Care Team Description [place] [address] [place] [address] [phone] 02/29/2020 Office Visit Urology documented as of this encounter Visit Diagnoses Not on filedocumented in this encounter
--- OUTSIDE RECORDS SUMMARY | 2019-11-28 22:30 | XMS REPORT | Encounter Summary ---
Author Author [facility] Organization [facility] Address Unknown Phone Unavailable Care Team Providers Care President [employer] Company Name Role Phone Ebony Sharp MD PCP Reason for Visit * Reason Comments Other Encounter Details Care Team Description Date Type Department Ebony Sharp MD [address] [facility] [address] [place] [address] [phone] Other 02/26/2017 Refill [facility] y [facility] (walk-in clinic) [address] [facility] [address] [place], [place] [id number] Social History Date Tobacco Use Types Packs/Day [...] Description Date [place] [address] [place] [address] [phone] 02/29/2020 Office Visit Urology documented as of this encounter Visit Diagnoses Not on filedocumented in this encounter Additional Health Concerns Resolved Time Infection Noted Time 04/19/2018 12:13 PM CDT Influenza 08/30/2017 10:13 AM TREASURY CONSULTANT 08/30/2019 1:09 PM TREASURY CONSULTANT Influenza - Rule Out 08/30/2019 11:32 AM TREASURY CONSULTANT 09/17/2019 8:17 AM TREASURY CONSULTANT RSV 08/31/2019 6:35 PM TREASURY CONSULTANT documented as of this encounter
--- OUTSIDE RECORDS SUMMARY | 2019-11-28 22:30 | XMS REPORT | Encounter Summary ---
Author Author [facility] Organization [facility] Address Unknown Phone Unavailable Care Team Providers Care B2B Sales Consultant Name Role Phone Ebony Sharp MD PCP Encounter Details Care Team Description Date Type Department Adelaida Olivas MD [address] [facility] [address] [place] [address] [phone] Other synovitis and tenosynovitis, left ankle and foot; Other specified disorders of tendon, left ankle and foot; Osteoarthritis of left ankle, unspecified osteoarthritis type 03/29/2017 Lab [facility] [phone] Social History Date Tobacco Use Types Packs/Day [...] Description Date [place] [address] [place] [address] [phone] 02/29/2020 Office Visit Urology documented as of this encounter Procedures Comments Procedure Name Priority Date/Time Associated Diag nosis APTT Routine 03/29/2017 Other synovitis and 11:09 AM CDT tenosynovitis, left ankle and foot Other specified disorders of tendon, left ankle and foot Osteoarthritis of left ankle, unspecified osteoarthritis type PROTHROMBIN TIME/INR Routine 03/29/2017 Other syn ovitis and 11:09 AM CDT tenosynovitis, left ankle and foot Other specified disorders of tendon, left ankle and foot Osteoarthritis of left ankle, unspecified osteoarthritis type COMPLETE BLOOD COUNT Routine 03/29/2017 Other syn ovitis and 11:09 AM CDT tenosynovitis, left ankle and foot Other specified disorders of tendon, left ankle and foot Osteoarthritis of left ankle, unspecified osteoarthritis type BASIC METABOLIC PANEL Routine 03/29/2017 Other sy novitis and 11:09 AM CDT tenosynovitis, left ankle and foot Other specified disorders of tendon, left ankle and foot Osteoarthritis of left ankle, unspecified osteoarthritis type documented in this encounter Results * Complete Blood Count (03/29/2017 11:09 AM CDT) [facility] WBC 6.56 4.00 - 11.00 TH/uL [facility] SIMStenXer Eugenia PRICE ZBD Displays [facility] RBC 4.00 4.00 - 5.00 MIL/uL [facility] [email or web address] ALBERT CrowdcubeSOAK (Smart Operational Agricultural toolKit) [facility] Hemoglobin 13.2 12.0 - 15.0 g/dL [facility] SIMStenXerEugenia Abdi MARBINS [facility] Hematocrit 41 36 - 45 % [facility] SIMSE[place] PRICE MARBINS [facility] MCV 103 (H) 80 - 99 fL KATEEugenia PRICE MARBIN [facility] MCH 33 27 - 34 pg KATEEugenia ZAZUETAS [facility] MCHC 32 32 - 36 % [facility] ZAZUETAS [facility] RDW 13.6 9.0 - 14.5 % [facility] INSTITUTEFloor64Eugenia PRICE MARBINS [facility] Platelet Count 140 140 - 400 TH/uL [place] SIMSEugenia ZAZUETASOAK (Smart Operational Agricultural toolKit) [facility] MPV 10.0 9.4 - 12.3 fL [facility] SIMStenXerEugenia ZAZUETASafari Property [facility] Specimen Blood Performing Organization Address City/State/Zipcode Ph one Number [place] AGUSTINS [address] [facility]Chart[facility] [place] [address] [facility] [place] SWAN[place] [address] [employer] Chiaraomar [place] [facility] [address], [place] [phone] [facility] * Prothrombin Time/INR (03/29/2017 11:09 AM CDT) Protime 13.1 11.4 - 15.0 sec [place] [facility] INR 1.0 0.8 - 1.2 [place] [facility] Specimen Blood Performing Organization Address City/[facility]/Presbyterian Hospitalcode Ph one Number [place] ZAZUETA'S [address] [place] [facility] [address] [facility] [place] AGUST[place] [address] [facility] [place] [facility] [address], [place] [phone] [facility] * APTT (03/29/2017 11:09 AM CDT) APTT 27 22 - 34 sec [place] SW[place] [facility] Specimen Blood Performing Organization Address [facility] Ph one Number [place] [place] AGUST[place] [address] [place] Garcia [place] [facility] [place] [address] [facility] [place] [address] [place] [facility] [place] [address], [place] [phone] [facility] * Basic Metabolic Panel (03/29/2017 11:09 AM CDT) Sodium 141 133 - 147 MEQ/L [place] [place] ZAZUETA'S [facility] Potassium 4.1 3.5 - 5.3 MEQ/L [facility] SIMSEugenia ZAZUETA'S [facility] Chloride 102 96 - 112 MEQ/L [place] [place] ZAZUETA'S [facility] Carbon Dioxide 27 20 - 32 MEQ/L KATEEugenia ZAZUETA'S [facility] Anion Gap 12 5 - 17 KATEEugenia ZAZUETA'S [facility] Calcium 9.2 8.4 - 10.5 mg/dL KATEEugenia ZAZUETAS [facility] Glucose 222 (H) 70 - 100 mg/dL [facility] HOSPIT[facility] AGUSTINS [facility] Blood Urea 13 7 - 26 mg/dL K[facility]'S Nitrogen ALBERT ZAZUETA'S [facility] Creatinine 0.8 0.4 - 1.1 mg/dL [facility] ALBERT ZAZUETAS [facility] eGFR Female AA 87 60 - 200 [facility] Comment: ALBERT AGUSTINS Chronic Kidney Disease less [facility] than 60 mL/min/1.73 sq.m Kidney failure less than 15 mL/min/1.73 sq.m eGFR Female 72 60 - 200 [facility] Non-AA Comment: ALBERT AGUSTINS Chronic Kidney Disease less [facility] than 60 mL/min/1.73 sq.m Kidney failure less than 15 mL/min/1.73 sq.m Specimen Blood Performing Organization Address City/State/Presbyterian Hospitalcode Ph one Number [place] SWAN[place] [address] kateeugenia [facility] [place] [place] [id number] [facility] [place] AGUST[place] [address] [facility] [place] [address], [facility] documented in this encounter Visit Diagnoses Diagnosis Other synovitis and tenosynovitis, left ankle and foot Other specified disorders of tendon, le ft ankle and foot Osteoarthritis of left ankle, unspecifi ed osteoarthritis type documented in this encounter
--- OUTSIDE RECORDS SUMMARY | 2019-11-28 22:30 | XMS REPORT | Encounter Summary ---
Author Author [facility] Organization [facility] Address Unknown Phone Unavailable Care Team Providers Care Coding Auditor Name Role Phone Ebony Sharp MD PCP Reason for Visit * Reason Comments Follow-up Margot left ankle [id number]: Appt. Reminder (03/12/2017 06:20 PM) Phone Call - Message Delivered (X=Answe ring Machine) Encounter Details Care Team Description Date Type Department Adelaida Olivas MD [address] [facility] [address] [place] [address] [phone] 03/16/2017 Hist[facility]Appoint[facility] [address] [facility] [address] [place] [address] Social History Date Tobacco Use Types Packs/Day [...] Description [place] [address] [place] [address] [phone] 02/29/2020 Office Visit Urology documented as of this encounter Visit Diagnoses Not on filedocumented in this encounter Additional Health Concerns Resolved Time Infection Noted Time 04/19/2018 12:13 PM CDT Influenza 08/30/2017 10:13 AM GENERAL ASSISTANT documented as of this encounter
--- OUTSIDE RECORDS SUMMARY | 2019-11-28 22:30 | XMS REPORT | Encounter Summary ---
Author Author [facility] Organization [facility] Address Unknown Phone Unavailable Care Team Providers Care Forklift Supervisor Name Role Phone Ebony Sharp MD PCP Reason for Visit * Reason Comments Other Encounter Details Care Team Description Date Type Department Ebony Sharp MD [address] [facility] [address] [place] [address] [phone] Other 02/18/2017 Refill [facility] (walk-in clinic) [address] [facility] [address] [place], [place] [id number] Social History Date Tobacco Use Types Packs/Day [...] Description Date [place] [address] [place] [address] [phone] 02/29/2020 Office Visit Urology documented as of this encounter Visit Diagnoses Not on filedocumented in this encounter
--- OUTSIDE RECORDS SUMMARY | 2019-11-28 22:30 | XMS REPORT | Encounter Summary ---
Author Author [facility] Organization [facility] Address Unknown Phone Unavailable Care Team Providers Care Logistician Name Role Phone Ebony Sharp MD PCP Reason for Referral * MRI/CAT/PET Scan (Routine) Referred By Contact Referred To Contact Status Reason Specialty Diagnoses / Procedures Adelaida Olivas MD [address] [facility] [address] [place] [address] [place] [address] Closed Radiology Diagnoses Bone fracture P rocedures CT Ankle wo contrast left Encounter Details Care Team Description Date Type Department Adelaida Olivas MD [address] [facility] [address] [place] [address] [phone] Bone fracture (Primary Dx) 02/16/2017 Transcribe [facility] Social History Date Tobacco Use Types Packs/Day [...] Description Date [place] [address] [place] [address] [phone] 02/29/2020 Office Visit Urology documented as of this encounter Results * CT Ankle wo contrast left (02/18/2017 12:42 PM CDT) Specimen Impressions Performed At Stable post surgical changes following tibiotalar [facility] arthrodesis, without evidence of hardwa re failure. Areas of solid osseous bridging are again seen in the central portion of the joint, and there is severe joint space narrowing p eripherally. Overall, there has been no change from the prior exam on . READING SITE: [facility] Narrative Performed At Patient: ISIAH BENÍTEZ Sex#: F # [id number] Jose#: [id number] [place] [facility] Procedure Requested: [id number] CT ANKLE WO CONTRAST LEFT Reason for Exam: Bone fracture Exam Ordered: 02/18/2017 12 14 Exam Date/Time: 02/18/2017 124 2 Begin exam date/time: 02/18/[address] ANKLE WO CONTRAST LEFT DATE: 02/18/2017 12:43 PM INDICATION: Bone fracture TECHNIQUE: Multidetector helical CT sca n through the left ankle was performed. Coronal and sagittal 2 D rec onstructions were generated. Images were reviewed on the PACS workst ation at soft tissue and osseous window settings. COMPARISON: Left ankle CT dated 2016 FINDINGS: There are postsurgical change s following tibiotalar arthrodesis, with multiple orthopedic s crews. There is also a single screw traversing the distal tibiofibula r syndesmosis. The hardware is intact, and is unchanged in position co mpared to the prior exam. Minimal lucency around the syndesmotic screw is unchanged. Areas of solid osseous bridging are aga in seen across the central portion of the tibiotalar joint. Periph erally, the tibiotalar joint is severely narrowed. This is unchanged in appearance from previous CT. There are no acute fractures. Mild calc aneocuboid and talonavicular osteoarthritis is stable. Procedure Note Interface, Rad Results In - 02/18/2017 3:08 PM CDT Patient: ISIAH BENÍTEZ Sex#: F # [id number] Jose#: [id number] [place] [facility] Procedure Requested: [id number] CT ANKLE WO CONTRAST LEFT Reason for Exam: Bone fracture Exam Ordered: 02/18/2017 1214 Exam Date/Time: 02/18/2017 1242 Begin exam date/time: 02/18/[address] ANKLE WO CONTRAST LEFT DATE: 02/18/2017 12:43 PM INDICATION: Bone fracture TECHNIQUE: Multidetector helical CT scan through the left ankle was performed. Coronal and sagittal 2 D reconstructions were generated. Images were reviewed on the PACS workstation at soft tissue and osseous window settings. COMPARISON: Left ankle CT dated 12/01/2016 FINDINGS: There are postsurgical changes following tibiotalar arthrodesis, with multiple orthopedic screws. There is also a single screw traversing the distal tibiofibular syndesmosis. The hardware is intact, and is unchanged in position compared to the prior exam. Minimal lucency around the syndesmotic screw is unchanged. Areas of solid osseous bridging are again seen across the central portion of the tibiotalar joint. Peripherally, the tibiotalar joint is severely narrowed. This is unchanged in appearance from previous CT. There are no acute fractures. Mild calcaneocuboid and talonavicular osteoarthritis is stable. IMPRESSION Stable post surgical changes following tibiotalar arthrodesis, without evidence of hardware failure. Areas of solid osseous bridging are again seen in the central portion of the joint, and there is severe joint space narrowing peripherally. Overall, there has been no change from the prior exam on 12/01/2016. READING SITE: [facility] Imaging Performing Organization Address City/State/[facility]integr[facility] [place] Ph one Number [place] documented in this encounter Visit Diagnoses Diagnosis Bone fracture Closed fracture of unspecified bone documented in this encounter Additional Health Concerns Resolved Time Infection Noted Time 04/19/2018 12:13 PM CDT Influenza 08/30/2017 10:13 AM UMBRELLA FINISHER 08/30/2019 1:09 PM UMBRELLA FINISHER Influenza - Rule Out 08/30/2019 11:32 AM UMBRELLA FINISHER 09/17/2019 8:17 AM UMBRELLA FINISHER RSV 08/31/2019 6:35 PM UMBRELLA FINISHER documented as of this encounter
--- OUTSIDE RECORDS SUMMARY | 2019-11-28 22:30 | XMS REPORT | Encounter Summary ---
Author Author [facility] Organization [facility] Address Unknown Phone Unavailable Care Team Providers Care Mortgage Originator Name Role Phone Ebony Sharp MD PCP Encounter Details Care Team Description Date Type Department Adelaida Olivas MD [address] [facility] [address] [place] [address] [phone] 02/11/2017 Hist-Other [facility] [address] [place] [address] Social History Date Tobacco Use Types Packs/Day [...] Description Date [place] [address] [place] [address] [phone] 02/29/2020 Office Visit Urology documented as of this encounter Procedures Comments Procedure Name Priority Date/Time Associated Diag nosis XR ANKLE Routine 02/11/2017 2:28 PM CDT documented in this encounter Results * XR Ankle (02/11/2017 2:28 PM CDT) Specimen Performing Organization Address City/State/Zipcode Ph one Number [place] documented in this encounter Visit Diagnoses Not on filedocumented in this encounter Additional Health Concerns Resolved Time Infection Noted Time 04/19/2018 12:13 PM CDT Influenza 08/30/2017 10:13 AM PRE CERTIFICATION SPECIALIST documented as of this encounter
--- OUTSIDE RECORDS SUMMARY | 2019-11-28 22:30 | XMS REPORT | Encounter Summary ---
Author Author [facility] Organization [facility] Address Unknown Phone Unavailable Care Team Providers Care Director Of Revenue Cycle Management Name Role Phone Ebony Sharp MD PCP Reason for Visit * Reason Comments Other Encounter Details Care Team Description Date Type Department Ebony Sharp MD [address] [facility] [address] [place] [address] [phone] Other 02/25/2017 Refill [facility] y [facility] (walk-in clinic) [address] [facility] [address] [place], [place] [id number] Social History Date Tobacco Use Types Packs/Day [...] Description Date [place] [address] [place] [address] [phone] 02/29/2020 Office Visit Urology documented as of this encounter Visit Diagnoses Not on filedocumented in this encounter Additional Health Concerns Resolved Time Infection Noted Time 04/19/2018 12:13 PM CDT Influenza 08/30/2017 10:13 AM DATA ANALYST 08/30/2019 1:09 PM DATA ANALYST Influenza - Rule Out 08/30/2019 11:32 AM DATA ANALYST 09/17/2019 8:17 AM DATA ANALYST RSV 08/31/2019 6:35 PM DATA ANALYST documented as of this encounter
--- OUTSIDE RECORDS SUMMARY | 2019-11-28 22:30 | XMS REPORT | Encounter Summary ---
Author Author [facility] Organization [facility] Address Unknown Phone Unavailable Care Team Providers Care Herd Tester Name Role Phone Ebony Sharp MD PCP Reason for Visit * Reason Comments Other Encounter Details Care Team Description Date Type Department Ebony Sharp MD [address] [facility] [address] [place] [address] [phone] Other 04/05/2017 Refill [facility] (walk-[facility] clinic) [address] [facility] [address] [place], [place] [id number] Social History Date Tobacco Use Types Packs/Day [...] Description Date [place] [address] [place] [address] [phone] 02/29/2020 Office Visit Urology documented as of this encounter Visit Diagnoses Not on filedocumented in this encounter Additional Health Concerns Resolved Time Infection Noted Time 04/19/2018 12:13 PM CDT Influenza 08/30/2017 10:13 AM VACUUM FRAME OPERATOR 08/30/2019 1:09 PM VACUUM FRAME OPERATOR Influenza - Rule Out 08/30/2019 11:32 AM VACUUM FRAME OPERATOR 09/17/2019 8:17 AM VACUUM FRAME OPERATOR RSV 08/31/2019 6:35 PM VACUUM FRAME OPERATOR documented as of this encounter
--- OUTSIDE RECORDS SUMMARY | 2019-11-28 22:30 | XMS REPORT | Encounter Summary ---
Author Author [facility] Organization [facility] Address Unknown Phone Unavailable Care Team Providers Care Dip Painter Name Role Phone Ebony Sharp MD PCP Encounter Details Care Team Description Date Type Department Adelaida Olivas MD [address] [facility] [address] [place] [address] 03/30/[address] [facility] [address] [facility] [address] [place] [address] Social History Date Tobacco Use [...] Clinic Note - Adelaida Olivas MD - 03/30/2017 10:27 AM CDT Phone Note Call from Patient Caller: Patient Summary of call: Patient called stating that she has surgery coming up and wante d to know if she could get a order for home health. Patient is requesting for a order for someone to come out and help her at home after surgery. Patient can be reached at [phone]. Call taken by: [employer] on March 30, 2017 10:30 AM Follow-up for Phone Call Follow-up Details: I spoke with the patient and explained how this works. I will put in the order for an evaluation and she will call with the outcome if further treatment is required - IE bedside commode, etc. Follow-up by: Rg Lopez on March 31, 2017 1:51 PM Additional Follow-up for Phone Call Additional Follow-up Details: Faxed order to [facility]. Additional Follow-up by: Yuki Weber on April 01, 2017 6:48 AM Additional Follow-up for Phone Call Additional Follow-up Details: Called patient and let her know. Additional Follow-up by: Yuki Weber on April 01, 2017 9:58 AM documented in this encounter Plan of Treatment Care Team Description Date [place] [address] [place] [address] [phone] 02/29/2020 Office Visit Urology documented as of this encounter Visit Diagnoses Not on filedocumented in this encounter Additional Health Concerns Resolved Time Infection Noted Time 04/19/2018 12:13 PM CDT Influenza 08/30/2017 10:13 AM ENTRY LEVEL ASSISTANT MANAGER 08/30/2019 1:09 PM ENTRY LEVEL ASSISTANT MANAGER Influenza - Rule Out 08/30/2019 11:32 AM ENTRY LEVEL ASSISTANT MANAGER 09/17/2019 8:17 AM ENTRY LEVEL ASSISTANT MANAGER RSV 08/31/2019 6:35 PM ENTRY LEVEL ASSISTANT MANAGER documented as of this encounter
--- OUTSIDE RECORDS SUMMARY | 2019-11-28 22:30 | XMS REPORT | Encounter Summary ---
Author Author [facility] Organization [facility] Address Unknown Phone Unavailable Care Team Providers Care Linen Sorter Name Role Phone Ebony Sharp MD PCP Reason for Visit * Reason Comments Other Encounter Details Care Team Description Date Type Department Ebony Sharp MD [address] [facility] [address] [place] [address] [phone] Other 04/06/2017 Refill [facility] y [facility] (walk-in clinic) [address] [facility] [address] [place], [place] [id number] Social History Date Tobacco Use Types Packs/Day [...] Description Date [place] [address] [place] [address] [phone] 02/29/2020 Office Visit Urology documented as of this encounter Visit Diagnoses Not on filedocumented in this encounter Additional Health Concerns Resolved Time Infection Noted Time 04/19/2018 12:13 PM CDT Influenza 08/30/2017 10:13 AM SENIOR STORAGE ENGINEER 08/30/2019 1:09 PM SENIOR STORAGE ENGINEER Influenza - Rule Out 08/30/2019 11:32 AM SENIOR STORAGE ENGINEER 09/17/2019 8:17 AM SENIOR STORAGE ENGINEER RSV 08/31/2019 6:35 PM SENIOR STORAGE ENGINEER documented as of this encounter
--- OUTSIDE RECORDS SUMMARY | 2019-11-28 22:30 | XMS REPORT | Encounter Summary ---
Author Author [facility] Organization [facility] Address Unknown Phone Unavailable Care Team Providers Care Estate Planner Name Role Phone Ebony Sharp MD PCP Encounter Details Care Team Description Date Type Department Adelaida Olivas MD [address] [facility] [address] [place], [place] [id number] 02/19/2017 [facility] [address] [facility] [address] [place], [place] [id number] Social History Date Tobacco Use Types Packs/Day [...] Clinic Note - Adelaida Olivas MD - 02/19/2017 4:12 PM CDT Phone Note Outgoing Call Call placed to: Patient Call placed by: Kari Young on February 19, 2017 4:12 PM Details for Reason: CT results Summary of call: I left a message for a return phone call. Follow-up for Phone Call Follow-up Details: I left a message for a return phone call. Follow-up by: Kari Young on February 22, 2017 3:23 PM Additional Follow-up for Phone Call Additional Follow-up Details: I spoke with the patient and gave her the results. I explained that Dr Olivas will go over the films at her visit and advise her of a POC. She was ok with this. Additional Follow-up by: Kari Young on February 22, 2017 3:38 PM documented in this encounter Plan of Treatment Care Team Description [place] [address] [place] [address] [phone] 02/29/2020 Office Visit Urology documented as of this encounter Visit Diagnoses Not on filedocumented in this encounter Additional Health Concerns Resolved Time Infection Noted Time 04/19/2018 12:13 PM CDT Influenza 08/30/2017 10:13 AM DINKER 08/30/2019 1:09 PM DINKER Influenza - Rule Out 08/30/2019 11:32 AM DINKER 09/17/2019 8:17 AM DINKER RSV 08/31/2019 6:35 PM DINKER documented as of this encounter
--- OUTSIDE RECORDS SUMMARY | 2019-11-28 22:30 | XMS REPORT | Encounter Summary ---
Author Author [facility] Organization [facility] Address Unknown Phone Unavailable Care Team Providers Care Hardwood Floor Layer Name Role Phone Ebony Sharp MD PCP Encounter Details Care Team Description Date Type Department Adelaida Olivas MD [address] [facility] [address] [place] [address] [phone] Other synovitis and tenosynovitis, left ankle and foot (Primary Dx); Other specified disorders of tendon, left ankle and foot; Osteoarthritis of left ankle, unspecified osteoarthritis type 03/29/2017 [facility] [phone] Social History Date Tobacco Use Types Packs/Day [...] Description Date [place] [address] [place] [address] [phone] 02/29/2020 Office Visit Urology documented as of this encounter Results * Complete Blood Count (03/29/2017 11:09 AM CDT) WBC 6.56 4.00 - 11.00 TH/uL [facility] RBC 4.00 4.00 - 5.00 MIL/uL [facility] Hemoglobin 13.2 12.0 - 15.0 g/dL [facility] Hematocrit 41 36 - 45 % [facility] MCV 103 (H) 80 - 99 fL [facility] MCH 33 27 - 34 pg [facility] MCHC 32 32 - 36 % [facility] RDW 13.6 9.0 - 14.5 % [facility] Platelet Count 140 140 - 400 TH/uL [facility] MPV 10.0 9.4 - 12.3 fL [facility] Specimen Blood Performing Organization Address City/State/[facility] Ph one Number [facility] [address] [place] [place], [place] [phone] [facility] [address] [place] [address], [facility] * Prothrombin Time/INR (03/29/2017 11:09 AM CDT) Protime 13.1 11.4 - 15.0 sec [facility] INR 1.0 0.8 - 1.2 [facility] Specimen Blood Performing Organization Address City/State/[facility] Ph one Number [facility] [address] [place], [place] [phone] [facility] [address] [place] [address], [facility] * APTT (03/29/2017 11:09 AM CDT) APTT 27 22 - 34 sec [facility] Specimen Blood Performing Organization Address City/State/[facility] Ph one Number [facility] [address] [place] [address] [facility] [address] [place] [address], [facility] * Basic Metabolic Panel (03/29/2017 11:09 AM CDT) [facility] Sodium 141 133 - 147 MEQ/L [facility] Potassium 4.1 3.5 - 5.3 MEQ/L [facility] Chloride 102 96 - 112 MEQ/L [facility] Carbon Dioxide 27 20 - 32 MEQ/L [facility] Anion Gap 12 5 - 17 [facility] Calcium 9.2 8.4 - 10.5 mg/dL [facility] Glucose 222 (H) 70 - 100 mg/dL [facility] Blood Urea 13 7 - 26 mg/dL [facility] Nitrogen [facility] Creatinine 0.8 0.4 - 1.1 mg/dL [facility] eGFR Female AA 87 60 - 200 [facility] Comment: [facility] Chronic Kidney Disease less [facility] than 60 mL/min/1.73 sq.m Kidney failure less than 15 mL/min/1.73 sq.m eGFR Female 72 60 - 200 [facility]-AA Comment: [facility] Chronic Kidney Disease less [facility] than 60 mL/min/1.73 sq.m Kidney failure less than 15 mL/min/1.73 sq.m Specimen Blood Performing Organization Address City/State/Zipcode Ph one Number [facility] [address] [place], [place] [phone] [facility] [address] [facility] [place] [address], [place] [phone] [facility] documented in this encounter Visit Diagnoses Diagnosis Other synovitis and tenosynovitis, left ankle and foot Other specified disorders of tendon, le ft ankle and foot Osteoarthritis of left ankle, unspecifi ed osteoarthritis type documented in this encounter Additional Health Concerns Resolved Time Infection Noted Time 04/19/2018 12:13 PM CDT Influenza 08/30/2017 10:13 AM CHROMIUM PLATER 08/30/2019 1:09 PM CHROMIUM PLATER Influenza - Rule Out 08/30/2019 11:32 AM CHROMIUM PLATER 09/17/2019 8:17 AM CHROMIUM PLATER RSV 08/31/2019 6:35 PM CHROMIUM PLATER documented as of this encounter
--- OUTSIDE RECORDS SUMMARY | 2019-11-28 22:30 | XMS REPORT | Encounter Summary ---
Author Author [facility] Organization [facility] Address Unknown Phone Unavailable Care Team Providers Care Head Still Operator Name Role Phone Ebony Sharp MD PCP Reason for Referral * MRI/CAT/PET Scan (Routine) Referred By Contact Referred To Contact Status Reason Specialty Diagnoses / Procedures Adelaida Olivas MD [address] [facility] [address] [place] [address] [place] [address] Closed Radiology Diagnoses Bone fracture P rocedures CT Ankle wo contrast left Reason for Visit * MRI/CAT/PET Scan (Routine) Referred By Contact Referred To Contact Status Reason Specialty Diagnoses / Procedures Adelaida Olivas MD [address] [facility] [address] [place] [address] [place] [address] Closed Radiology Diagnoses Bone fracture P rocedures CT Ankle wo contrast left Encounter Details Care Team Description Date Type Department Adelaida Olivas MD [address] [facility] [address] [place] [address] [phone] Bone fracture 02/18/2017 [facility] [address] [place] [id number] Social History Date Tobacco Use Types Packs/Day [...] 4 (four) hours as needed for wheezing. 02/14/2016 03/29/2017 amitriptyline (ELAVIL) 25 Take 1 tablet 90 tablet 3 MG tablet (25 mg total) by mouth nightly. 07/02/2016 03/29/2017 amLODIPine (NORVASC) 2.5 Take 2 90 tablet 3 MG tablet tablets (5 mg total) by mouth daily. Take one daily. 11/06/2016 03/29/2017 BD INSULIN SYRINGE USE 100 each 0 ULTRA-FINE 0.3 mL 31 DIRECTED gauge x 5/16 Syrg 11/25/2017 BIOTIN ORAL Take 2 0 tablets by mouth daily. 02/14/2016 03/29/2017 citalopram (CELEXA) 20 MG Take 1 tablet 90 tablet 3 tablet (20 mg total) by mouth daily. 01/20/2017 04/08/2017 cyclobenzaprine Take 1 tablet 0 (FLEXERIL) 10 MG tablet by mouth nightly. 02/14/2016 04/08/2017 fluticasone-vilanterol Inhale 1 puff 3 each 3 (BREO ELLIPTA) 200-25 daily. mcg/actuation INHALERIndications: maintenance therapy for asthma 02/18/2017 03/29/2017 gabapentin (NEURONTIN) TAKE 1 30 capsule 0 300 MG capsule CAPSULE(300 MG) BY MOUTH THREE TIMES DAILY 02/05/2017 03/29/2017 insulin glargine (LANTUS) Inject 30 10 mL 3 100 unit/mL injection Units under the skin nightly. When steroid complete - resume taking 15 units rather than 30 02/05/2017 04/07/2017 insulin lispro (HUMALOG) Inject 2-7 10 mL 0 100 unit/mL injection Units under the skin 4 (four) times a day before meals and nightly. See sliding scal instruction on dc instructs 05/22/2016 04/08/2017 lidocaine (XYLOCAINE) 5 % APPLY 30 g 0 ointment EXTERNALLY TO THE AFFECTED AREA 1 TO 4 TIMES DAILY NEEDED 02/14/2016 03/29/2017 metoprolol tartrate Take 1 tablet 180 tablet 3 (LOPRESSOR) 100 MG tablet (100 mg total) by mouth 2 (two) times a day. 04/12/2017 morphine (MSIR) 15 MG Take 15 mg by 0 tablet mouth every 12 (twelve) hours. 11/03/2016 04/07/2017 oxyCODONE-acetaminophen Take 1-2 0 (PERCOCET) 7.5-325 mg per tablets by tablet mouth every 6 (six) hours as needed. 02/14/2016 04/08/2017 simvastatin (ZOCOR) 20 MG Take 1 tablet 90 tablet 3 tablet (20 mg total) by mouth nightly. documented as of this encounter Plan of Treatment Care Team Description Date [place] [address] [place] [address] [phone] 02/29/2020 Office Visit Urology documented as of this encounter Procedures Comments Procedure Name Priority Date/Time Associated Diag nosis CT ANKLE WO CONTRAST LEFT Routine 02/18/2017 Bone fracture 12:42 PM CDT documented in this encounter Results * CT Ankle wo contrast left (02/18/2017 12:42 PM CDT) Specimen Impressions Performed At Stable post surgical changes following tibiotalar KESSON arthrodesis, without evidence of hardwa re failure. Areas of solid osseous bridging are again seen in the central portion of the joint, and there is severe joint space narrowing p eripherally. Overall, there has been no change from the prior exam on . READING SITE: [facility] Narrative Performed At Patient: BOARD, ISIAH P MCKESSON Sex#: F # [id number] Jose#: [id number] Location: [facility] [place] Procedure Requested: [id number] CT ANKLE WO CONTRAST LEFT Reason for [...] ISIAH BENÍTEZ Sex#: F # [id number] Jose#: [id number] Location: [facility] [place] Procedure Requested: [id number] CT ANKLE WO CONTRAST LEFT Reason for [...] the prior exam on 12/01/2016. READING SITE: [facility] Imaging Performing Organization Address City/State/Zipcode Ph one [place] [facility] documented in this encounter Visit Diagnoses Diagnosis Bone fracture Closed fracture of unspecified bone documented in this encounter
--- OUTSIDE RECORDS SUMMARY | 2019-11-28 22:30 | XMS REPORT | Encounter Summary ---
Author Author [facility] Organization [facility] Address Unknown Phone Unavailable Care Team Providers Care Gutter Mouth Cutter Name Role Phone Ebony Sharp MD PCP Reason for Visit * Reason Comments Follow-up surgery clearance Encounter Details Care Team Description Date Type Department Ebony Sharp MD [address] [facility] [address] [place] [address] SASHA (obstructive sleep apnea) (Primary D x); Essential hypertension; Hyperlipidemia, unspecified hyperlipidemia type; MATA (generalized anxiety disorder); Chronic obstructive pulmonary disease, unspecified COPD type ([facility]); IDDM (insulin dependent diabetes mellitus) ([facility]) 04/08/2017 Office Visit [facility] (walk-in clinic) [address] [facility] [address] [place] [address] Social History Date Tobacco Use [...] Signs Reading Time Taken Comments Vital Sign 136/88 04/08/2017 12:15 PM CDT Blood Pressure 78 04/08/2017 12:15 PM CDT Pulse - - Temperature - - Respiratory Rate 95% 04/08/2017 12:15 PM CDT Oxygen Saturation - - Inhaled Oxygen Concentration 96.2 kg (212 lb) 04/08/2017 12:15 PM CDT Weight 157.5 cm (5' 2") 04/08/2017 12:15 PM CDT Height 38.78 04/08/2017 12:15 PM CDT Body Mass Index documented in this encounter Progress Notes * Ebony Sharp MD - 04/08/2017 11:50 AM CDT CC: Follow-up (surgery clearance) HPI : Caren Patten is a 66 y.o. female who presents with complaints of Follow-up (surgery clearance) Patient here wanting to have surgical clearance. She has not been in for quite some time and missed her last appointment here. She has not been checking her b lood sugars and hence we are unsure of her diabetes control. She needs labs. S he also is due fo rher medicare wellness. 1.Surgery clearance - left ankle has several screws and she is going to have the m removed. She may also be having bone graft per her report. She cannot procee d without my approval. She is eager to do her surgery. 2.HLD - likely needs labs soon. 3.HTN - controlled 4.DM2 - uncontrolled. 5. COPD - stable. No flairs currently. 6. SASHA - stable. Uses cpap most of hte time. Medicare Annual Wellness: Patient Care Team: Ebony Sharp MD as PCP - General (Internal Medicine) Floresita Anaya LPN as Licensed Practical Nurse Sha Gomez MA as Ordained Minister Aniya Rosa MA as Ordained Minister Lisa Moreno LPN as Licensed Practical Nurse Sheryl Barfield MA as Ordained Minister The patients demographics, including age, gender, race, [...] y.: Yes Fall Risk:: Low Fall Risk During the last 12 months, have you [...] handrails in the bathroom?: Yes Do you leak urine?: Yes Do you have concerns regarding sexually transmitted infections?: No 1) In the last month, have you felt down, depressed, or hopeless?: 0 2) In the last month, have you felt little interest or pleasure in doing things? : 0 I am satisfied with life overall:: Yes [...] No Describe your current diet:: Low Salt;Low Sugar;Low Cholesterol Type of Exercise: Walking How many minutes do you exercise per session?: 15 How many times per week do you exercise?: 3 Weekly Exercise (Minutes/Week): 45 Do you use dental floss?: No How many times a day do you brush your teeth: : 1 Advance Directive?: Yes ALLERGIES: Allergies Allergen Reactions Lisinopril Anaphylaxis Metformin Anaphylaxis Sulfa (Sulfonamide Antibiotics) Hives CURRENT MEDICATIONS: Current Outpatient Prescriptions Medication Sig Dispense Refill albuterol (PROAIR HFA) 90 mcg/actuation HFA inhaler Inhale 1 puff every 4 (f our) hours as needed for wheezing. 18 g 11 amitriptyline (ELAVIL) 25 MG tablet Take 1 tablet (25 mg total) by mouth nig htly. 90 tablet 0 amLODIPine (NORVASC) 2.5 MG tablet Take 2 tablets (5 mg total) by mouth eve y. Take one daily. 90 tablet 0 BIOTIN ORAL Take 2 tablets by mouth daily. citalopram (CELEXA) 20 mg tablet Take 1 tablet (20 mg total) by mouth daily. 90 tablet 0 cyclobenzaprine (FLEXERIL) 10 MG tablet Take 1 tablet by mouth nightly. fluticasone-vilanterol (BREO ELLIPTA) 200-25 mcg/actuation INHALER Inhale 1 puff daily. 3 each 3 gabapentin (NEURONTIN) 300 MG capsule TAKE 1 CAPSULE(300 MG) BY MOUTH THREE TIMES DAILY 30 capsule 0 insulin glargine (LANTUS) 100 unit/mL injection Inject 30 Units under the sk in nightly. When steroid complete - resume taking 15 units rather than 30 (Patie nt taking differently: Inject 15 Units under the skin nightly. When steroid comp lete - resume taking 15 units rather than 30) 10 mL 0 insulin syringe (BD ULTRA-FINE) 0.3 mL 31 gauge x 5/16 Inject under the skin daily. use as directed 100 each 0 ipratropium-albuterol (DUO-NEB) 0.5-3 mg/3 mL nebulizer Inhale 3 mL 4 (four) times a day. 360 mL 11 lidocaine (XYLOCAINE) 5 % ointment APPLY EXTERNALLY TO THE AFFECTED AREA 1 T O 4 TIMES DAILY NEEDED 30 g 0 metoprolol tartrate (LOPRESSOR) 100 MG tablet Take 1 tablet (100 mg total) b y mouth 2 (two) times a day. 180 tablet 0 morphine (MSIR) 15 MG tablet Take 15 mg by mouth every 12 (twelve) hours. oxyCODONE-acetaminophen (PERCOCET) 10-325 mg per tablet Take 1 tablet by tanna th every 4 (four) hours as needed for pain. OXYGEN THERAPY 2 L/min as needed. simvastatin (ZOCOR) 20 MG tablet Take 1 tablet (20 mg total) by mouth nightl y. 90 tablet 3 No current facility-administered medications for this visit. LAB SUMMARY: Lab Results Component Value Date WBC 6.56 03/29/2017 HGB 13.2 03/29/2017 HCT 41 03/29/2017 PLT 140 03/29/2017 CHOL 200 07/23/2016 TRIG 208 (H) 07/23/2016 HDL 49 07/23/2016 ALT 43 02/11/2017 AST 40 02/11/2017 NA 141 03/29/2017 K 4.1 03/29/2017 CL 102 03/29/2017 BUN 13 03/29/2017 CO2 27 03/29/2017 TSH 0.63 07/23/2016 INR 1.0 03/29/2017 HGBA1C 8.6 (H) 07/23/2016 MICROALBUR 7.20 09/24/2015 SOCIAL HISTORY: Social History Social History Marital [...] MAINTENANCE: Health Maintenance Topic Date Due Spirometry 1950 Medicare Annual Wellness 1950 Diabetes Mellitus Ophthalmology Exam 1952 Diabetes Mellitus Foot Exam 1962 Td 1966 Zoster Vaccine (1) 2012 Mammogram Screening 01/05/2013 Diabetes Mellitus Urine Microalbumin 09/24/2016 Diabetes Mellitus Hemoglobin A1C 01/21/2017 Influenza Vaccine (1) 04/23/2017 Colorectal Screening via Colonoscopy 12/24/2019 Pneumococcal Immunization 19-64 Low/Medium Risk Completed Immunization History Administered Date(s) Administered Influenza QIV (IM) 05/09/2016 Pneumococcal Polysaccharide 05/09/2016 Review of Systems Constitutional: Negative. HENT: Negative. Eyes: Negative. Respiratory: Negative. Cardiovascular: Negative. Gastrointestinal: Negative. Endocrine: Negative. Genitourinary: Negative. Musculoskeletal: Negative. Skin: Negative. Allergic/Immunologic: Negative. Neurological: Negative. Hematological: Negative. Psychiatric/Behavioral: Negative. OBJECTIVE Vitals: 04/08/17 1215 BP: 136/88 BP Location: Left arm Pulse: 78 SpO2: 95% Weight: 96.2 kg (212 lb) Height: 1.575 m (5' 2") Estimated body mass index is 40.97 kg/m as calculated from the following: Height as of 04/07/17: 1.575 m (5' 2"). Weight as of 04/07/17: 101.6 kg (224 lb). Physical Exam Constitutional: She appears well-developed [...] and all orders for this visit: SASHA (obstructive sleep apnea) Essential hypertension - Thyroid Stimulating Hormone; Future Hyperlipidemia, unspecified hyperlipidemia type - Lipid Panel; Future MATA (generalized anxiety disorder) Chronic obstructive pulmonary disease, unspecified COPD type ([facility]) IDDM (insulin dependent diabetes mellitus) ([facility]) - Hemoglobin A1C; Future - Microalbumin Random; Future Other orders - simvastatin (ZOCOR) 20 MG tablet; Take 1 tablet (20 mg total) by mouth nig htly. - metoprolol tartrate (LOPRESSOR) 100 MG tablet; Take 1 tablet (100 mg total ) by mouth 2 (two) times a day. - insulin syringe (BD ULTRA-FINE) 0.3 mL 31 gauge x 5/16; Inject under the s kin daily. use as directed - insulin glargine (LANTUS) 100 unit/mL injection; Inject 15 Units under the skin nightly. When steroid complete - resume taking 15 units rather than 30 - gabapentin (NEURONTIN) 300 MG capsule; Take 1 capsule (300 mg total) by mo uth 3 (three) times a day. - fluticasone-vilanterol (BREO ELLIPTA) 200-25 mcg/actuation INHALER; Inhale 1 puff daily. - cyclobenzaprine (FLEXERIL) 10 MG tablet; Take 1 tablet (10 mg total) by mo uth nightly. - citalopram (CELEXA) 20 mg tablet; Take 1 tablet (20 mg total) by mouth jcarlos ly. - amLODIPine (NORVASC) 2.5 MG tablet; Take 2 tablets (5 mg total) by mouth d aily. Take one daily. - amitriptyline (ELAVIL) 25 MG tablet; Take 1 tablet (25 mg total) by mouth nightly. 1. DM2 - this is concerning to me. Her last glucose was 222 when she did labs for ortho. She does not check at home. She has not been coming for a1c checks. We are going to get her a1c done. 2. HTN - controlled 3. HLD - due for recheck of labs. 4. COPD - she has reactive airway. She is doing well right now, so unlikely th at this is a problem for her having surgery. 5. SASHA - she has cpap at night. She does not wear it every night, but most of hte time. Surgical clearance - There are some concerns associated with her having surgery, however her last EKG was normal in January 2017 and her last stress was normal in January 2016. She could easily do 4 METS if needed - she is up and down stairs in her home without difficulty currently. Hence, I feel that she will probably do OK with surgery - however, she will need to have her glucose watched while in e hospital. Her SASHA and COPD are currently stable. She needs to be STRONGLY EN COURAGED to continue to watch her blood sugars and have her diabetes under contr ol. She needs to be seen q 3-4 months because of her multiple chronic concerns. Ebony Sharp MD documented in this encounter Plan of Treatment Care Team Description [place] [address] [place] [address] [phone] 02/29/2020 Office Visit Urology documented as of this encounter Results * Microalbumin Random (04/08/2017 12:49 PM CDT) Creatinine 439.2 mg/dL [facility] Urine Random [facility] Microalbumin 10.40 mg/dL [facility] mg/dl [facility] Microalbumin/Cr 23.68 0.00 - 30.00 ug/mg [facility] eatinine Ratio [facility] Specimen Performing Organization Address City/State/Zipcode Ph one Number [facility] [address] [place] [phone] LABORATORIES * Thyroid Stimulating Hormone (04/08/2017 12:49 PM CDT) Thyroid 0.35 (L) 0.47 - 4.68 uIU/mL [facility] Hormone LABOR[facility] Specimen Blood Performing Organization Address City/[facility] one Number [facility] [address] [phone] LABORATORIES * Lipid Panel (04/08/2017 12:49 PM CDT) Cholesterol 193 100 - 200 mg/dL [facility] HDL Cholesterol 54 40 - 110 mg/dL [facility] Non-HDL 139 (H) 0 - 130 mg/dL [facility] Cholesterol [facility] Triglycerides 182 (H) 0 - 150 mg/dL [facility] LDL Cholesterol 103 (H) 0 - 99 mg/dL [facility] Cholesterol/HDL 3.6 0.0 - 4.5 [facility] Ratio [facility] Specimen Blood Performing Organization Address City/[facility] one Number [facility] [address] [phone] LABORATORIES * Hemoglobin A1C (04/08/2017 12:49 PM CDT) Hemoglobin A1C 8.1 (H) 4.0 - 5.6 % [facility] Comment: REG[facility]AL Non-diabetic 4.0 - LABORATORIES 5.6 % Prediabetes 5.7 - 6.4 % Diabetes >= 6.5 % Specimen Blood Performing Organization Address City/[facility] one Number [facility] [address] [phone] LABORATORIES documented in this encounter Visit Diagnoses Diagnosis SASHA (obstructive sleep apnea) Obstructive sleep apnea (adult) (pediat amita) Essential hypertension Unspecified essential hypertension Hyperlipidemia, unspecified hyperlipide prasanna type MATA (generalized anxiety disorder) Generalized anxiety disorder Chronic obstructive pulmonary disease, unspecified COPD type ([facility]) IDDM (insulin dependent diabetes [facility]) ([facility]) documented in this encounter
--- OUTSIDE RECORDS SUMMARY | 2019-11-28 22:30 | XMS REPORT | Encounter Summary ---
Author Author [facility] Organization [facility] Address Unknown Phone Unavailable Care Team Providers Care Equity Research Analyst Name Role Phone Ebony Sharp MD PCP Encounter Details Care Team Description Date Type Department Jennifer Feng RN 04/07/2017 Telephone [facility] (walk-in clinic) [address] [facility] [address] [place], [place] [id number] Social History Date Tobacco Use Types Packs/Day [...] Telephone Encounter - Ebony Sharp MD - 04/07/2017 9:16 PM CDT She no showed her last appointment. I CANNOT give surgical clearance as I have not seen her for this reason (and she is past due for follow up on chronic issue s as well). * Telephone Encounter - Jennifer Feng RN - 04/07/2017 2:28 PM CDT Renee mcfarlane [facility] called requesting a surgical approval for pt. States she is reagan eduled to have removal of hardware in her ankle on 04/09/17. It appears we have n ot seen her since her last ED visit (no show for appt on 6/30/17 but that is whe n she had her ankle injury). Please advise. Thank you. documented in this encounter Plan of Treatment Care Team Description [place] [address] [place] [address] [phone] 02/29/2020 Office Visit Urology documented as of this encounter Visit Diagnoses Not on filedocumented in this encounter
--- OUTSIDE RECORDS SUMMARY | 2019-11-28 22:30 | XMS REPORT | Encounter Summary ---
Author Author [facility] Organization [facility] Address Unknown Phone Unavailable Care Team Providers Care Allergist Name Role Phone Ebony Sharp MD PCP Encounter Details Care Team Description Date Type Department Ebony Sharp MD [address] [facility] [address] [place] [address] [phone] 02/26/2017 Documentation [facility] (walk-in clinic) [address] [facility] [address] [place], [place] [id number] Social History Date Tobacco Use Types Packs/Day [...] Description Date [place] [address] [place] [address] [phone] 02/29/2020 Office Visit Urology documented as of this encounter Visit Diagnoses Not on filedocumented in this encounter
--- OUTSIDE RECORDS SUMMARY | 2019-11-28 22:30 | XMS REPORT | Encounter Summary ---
Author Author [facility] Organization [facility] Address Unknown Phone Unavailable Care Team Providers Care Surveyor Helper Rod Name Role Phone Ebony Sharp MD PCP Reason for Visit * Reason Comments Other Encounter Details Care Team Description Date Type Department Ebony Sharp MD [address] [facility] [address] [place] [address] [phone] Other 03/21/2017 Refill [facility] (walk-in clinic) [address] [facility] [address] [place], [place] [id number] Social History Date Tobacco Use Types Packs/Day [...] Description Date [place] [address] [place] [address] [phone] 02/29/2020 Office Visit Urology documented as of this encounter Visit Diagnoses Not on filedocumented in this encounter Additional Health Concerns Resolved Time Infection Noted Time 04/19/2018 12:13 PM CDT Influenza 08/30/2017 10:13 AM DETONATOR MAKER 08/30/2019 1:09 PM DETONATOR MAKER Influenza - Rule Out 08/30/2019 11:32 AM DETONATOR MAKER 09/17/2019 8:17 AM DETONATOR MAKER RSV 08/31/2019 6:35 PM DETONATOR MAKER documented as of this encounter
--- OUTSIDE RECORDS SUMMARY | 2019-11-28 22:30 | XMS REPORT | Encounter Summary ---
Author Author [facility] Organization [facility] Address Unknown Phone Unavailable Care Team Providers Care Consulting It Architect Name Role Phone Ebony Sharp MD PCP Encounter Details Care Team Description Date Type Department Adelaida Olivas MD [address] [facility] [address] [place], [place] [id number] 03/16/2017 Hist-Transcript [facility] [address] [facility] [address] [place], [place] [address] Social History Date Tobacco Use Types Packs/Day [...] Progress Notes * Adelaida Olivas MD - 03/16/2017 4:30 PM CDT - History of Present Illness Presents today for evaluation of her left lower extremity. She has obtained a CT scan of her left ankle. She has still been using the bone stimulator. She states her left ankle has not been improving. She has pain when she weightbears. Examination Physical examination reveals a 66-year-old woman with continued tenderness to pa lpation throughout the course of her anterior tibiotalar joint. She has some te nderness to palpation throughout the course of her subtalar joint. She is other sainz able to plantar flex and dorsiflex her midfoot with minimal complaints of p ain. There is no overt evidence of delayed wound healing. She has a nice palpa ble dorsalis pedis pulse. Impression NONUNION FRACTURE ([id number]) Potentially symptomatic tibiotalar nonunion. Plan At this point, we did discuss removal of hardware with revision of arthrodesis s ites. We will see her if this is the course she wishes to take. Past Medical History High Blood Pressure Arthritis [...] DOXYCYCLINE HYCLATE 100 MG TABS (DOXYCYCLINE HYCLATE) Allergies: LISINOPRIL (LISINOPRIL) GLUCOPHAGE (METFORMIN HCL) SULFA (SULFADIAZINE) I have reviewed and concur with the medical, social and family histories collect ed and entered on my behalf, on 03/16/2017. -Adelaida Olivas MD, March 16, 2017 4:36 PM Prescriptions: MS CONTIN 15 MG CR-TABS (MORPHINE SULFATE) Take 1 tablet every 12 hours as neede d for pain #56 x 0 Entered by: Sharona Scott Authorized by: Adelaida Olivas MD Signed by: Sharona Scott on 03/16/2017 Method used: Print then Give to Patient RxID: [id number] PERCOCET 10-325 MG TABS (OXYCODONE-ACETAMINOPHEN) 1-2 PO Q 4-6 Hours PRN Pain # 90 x 0 Entered by: Sharona Scott Authorized by: Adelaida Olivas MD Signed by: Sharona Scott on 03/16/2017 Method used: Print then Give to Patient RxID: [id number] CYCLOBENZAPRINE HCL 10 MG TABS (CYCLOBENZAPRINE HCL) 1 tablet at bedtime #30 x 0 Entered by: Sharona Scott Authorized by: Adelaida Olivas MD Signed by: Sharona Scott on 03/16/2017 Method used: Print then Give to Patient RxID: [id number] Vital Signs BMI: 43.32 She was encourage to talk with her primary care provider about weight management . BP: 001/01 Radiographs: X-ray examination was not performed today. A CT scan does demonstrate areas of tibiotalar lucency. and obtain a x-ray of their left ankle. Orders from current office visit: PQRS 128a PQRS 226NS Metabolic Panel Basic Arthrodesis of ankle open INR Prothrombin Time (PT) PQRS 317n PQRS 130na Measure 109 PTT-Partial Thromboplastin Time CBC w/o Differential * I,Sharona Scott, have scribed the history and exam for, and in the presence of Dr. Adelaida Olivas MD. I Dr. Adelaida Olivas MD have reviewed the scribed history and exam, no changes are required. Signed by Adelaida Olivas MD on March 16, 2017 at 4:32 PM documented in this encounter Plan of Treatment Care Team Description Date [place] [address] [place] [address] [phone] 02/29/2020 Office Visit Urology documented as of this encounter Visit Diagnoses Not on filedocumented in this encounter Additional Health Concerns Resolved Time Infection Noted Time 04/19/2018 12:13 PM CDT Influenza 08/30/2017 10:13 AM COMPUTER DRAFTER 08/30/2019 1:09 PM COMPUTER DRAFTER Influenza - Rule Out 08/30/2019 11:32 AM COMPUTER DRAFTER 09/17/2019 8:17 AM COMPUTER DRAFTER RSV 08/31/2019 6:35 PM COMPUTER DRAFTER documented as of this encounter
--- OUTSIDE RECORDS SUMMARY | 2019-11-28 22:30 | XMS REPORT | Encounter Summary ---
Author Author [facility] Organization [facility] Address Unknown Phone Unavailable Care Team Providers Care Director Of Content Marketing Name Role Phone Ebony Sharp MD PCP Encounter Details Care Team Description Date Type Department Adelaida Olivas MD [address] [facility] [address] [place] [address] 04/02/2017 Hist-Telephone [facility] [address] [facility] [address] [place] [address] Social History Date Tobacco Use [...] Clinic Note - Adelaida Olivas MD - 04/02/2017 9:33 AM CDT Phone Note Call from Patient Caller: Patient Summary of call: Patient called requesting a call from Dr. Olivas yard assistant she w anted to go over her upcoming surgery. Patient can be reached at [phone] Call taken by: [employer] on April 02, 2017 9:34 AM Follow-up for Phone Call Follow-up Details: I left a message for a return phone call. Follow-up by: Kari Young on April 05, 2017 11:54 AM Additional Follow-up for Phone Call Additional Follow-up Details: Patient is returning the above call. Please call b ack at [phone] Additional Follow-up by: Trina Rhodes on April 05, 2017 1:01 PM Additional Follow-up for Phone Call Additional Follow-up Details: I spoke with the patient and discussed her home sa fety evaluation and upcoming surgery. Additional Follow-up by: Kari Young on April 06, 2017 9:40 AM documented in this encounter Plan of Treatment Care Team Description Date [place] [address] [place] [address] [phone] 02/29/2020 Office Visit Urology documented as of this encounter Visit Diagnoses Not on filedocumented in this encounter Additional Health Concerns Resolved Time Infection Noted Time 04/19/2018 12:13 PM CDT Influenza 08/30/2017 10:13 AM TECHNICAL SYSTEM ANALYST 08/30/2019 1:09 PM TECHNICAL SYSTEM ANALYST Influenza - Rule Out 08/30/2019 11:32 AM TECHNICAL SYSTEM ANALYST 09/17/2019 8:17 AM TECHNICAL SYSTEM ANALYST RSV 08/31/2019 6:35 PM TECHNICAL SYSTEM ANALYST documented as of this encounter
--- OUTSIDE RECORDS SUMMARY | 2019-11-28 22:31 | XMS REPORT | Encounter Summary ---
Author Author [facility] Organization [facility] Address Unknown Phone Unavailable Care Team Providers Care Brush Or Broom Cutter Name Role Phone Ebony Sharp MD PCP Reason for Visit * Reason Comments Abdominal Cramping Patient reports having a [employer] burrito, found plastic in the burrito patient stopped eating it. Shortly afte r patient started experiencing cramping pain in stomach. 9/10 pain. * Auth/Cert Referred By Contact Referred To Contact Status Reason Specialty Diagnoses / Procedures Diagnoses Epigastric pain Hypoxia COPD exacerbation (HCC) COPD exacerbation (HCC) Encounter Details Care Team Description Date Type Department Omar Higginbotham MD [address] [place] [address] [phone] [place] [address] [place] [address] [phone] COPD exacerbation (HCC) (Primary Dx); Hypoxia; Epigastric pain 02/04/2017 Emergency [facility] 02/05/[address] [place] [address] Social History Date Tobacco Use Types Packs/Day Years Used Quit: 09/14/2009 Former Smoker Smokeless Tobacco: Never Used Comments: quit 7 years ago Drinks/Week oz/Week Comments Alcohol Use No Sex Assigned at Date Recorded Female Industry Job Start Date Occupation Not on file Not on file Not on file Travel End Travel History Travel Start No recent travel history available. documented as of this encounter Last Filed Vital Signs Reading Time Taken Comments Vital Sign 122/70 02/05/2017 2:13 PM CDT Blood Pressure 84 02/05/2017 3:45 PM CDT Pulse 36.6 C (97.8 F) 02/05/2017 2:13 PM CDT Temperature 18 02/05/2017 3:45 PM CDT Respiratory Rate 93% 02/05/2017 5:07 PM CDT Oxygen Saturation - - Inhaled Oxygen Concentration 101.6 kg (224 lb) 02/04/2017 10:45 AM CDT Weight 157.5 cm (5' 2") 02/04/2017 10:45 AM CDT Height 40.97 02/04/2017 10:45 AM CDT Body Mass Index documented in this encounter Discharge Summaries * Rolo Hua MD - 02/05/2017 3:30 PM CDT [facility] Hospitalist - Discharge Summary Patient Name: Isiah Benítez Account No: [id number] Date of : 1950 Date of Admission: 02/04/2017 10:34 AM Date of Discharge: 02/05/2017 3:30 PM Length of Stay: 0 Days LACE Score: LACE Score: 6 Primary Care Physician: Ebony Sharp MD; Reason for Hospital Admission and Brief Hospital Course: Ms. Isiah Benítez is a 66 y.o. female with history of COPD using PRN 2 liters of O2, insulin dependent DM, HTN, HLD and chronic ankle pain who presented with dyspnea and abdominal samuel n. She was apparently seen in the ED earlier on day of admission and discharged with steroids and doxycycline. She took these to the pharmacy to be filled and then went at [email or web address] with her daughter. After eating most of her burrito, she bit into it and there was plastic so she stopped eating. Shortly after she had nausea and stomach cramping and came to the ED where CT ab/pelvis was negat jesús other than non obstructing L renal calculus. She's had no vomiting or diarr hea. She was noted to be hypoxic in ED with sats 89-90% on room air. She was admitted for copd exacerbation. She received steroids and has had improvement of her sx. She is not wheezing. She is comfortable returning home at this point to continue her steroid taper. Her ab pain is better but she thinks she needs to have a BM. She wishes for so me milk of mag but can dc home after she receives it. Exam of abdomen is benign . It was explained to her that she has a renal calculus and continued pain on t he L side could be related to this and may need further w/u or urology visit as OP. She has poorly controlled sugars on steroids - lantus was doubled and ssi was ad ded along with a visit from DM educator. Once completed education she will retu rn home. The patient's discharge plan was discussed fully with the patient. All questions were answered. Disposition: Discharged in stable condition to home. Problems Addressed During This Admission: Active Problems: COPD exacerbation (HCC) IDDM (insulin dependent diabetes mellitus) (HCC) HTN (hypertension) Morbid obesity due to excess calories (HCC) Post-op pain Renal calculus Resolved Problems: Type 2 diabetes mellitus without complication ([facility]) Code Status: Full Code Recommended Diet: Diet-Low Fat/Chol, 2gm Na, Consistent Carbohydrate Diet - Consistent Carbohydrate (75 gm) Activity/Restrictions: activity as tolerated Scheduled Follow Up Appointments/Studies ([facility]): No future appointments. Additional Discharge Follow Up: Dr Ebony Sharp MD, primary care physician in 14 days. Additional Labs Appointments/Diagnostic Studies: None Allergies Allergen Reactions Lisinopril Anaphylaxis Metformin Anaphylaxis Sulfa (Sulfonamide Antibiotics) Hives Discharge Medications New Medications Indication(s) insulin lispro 100 unit/mL injection Commonly known as: HumaLOG 2-7 Units, Subcutaneous, 4 times daily before meals and nightly, See sliding sca l instruction on dc instructs Modified Medications Indication(s) amLODIPine 2.5 MG tablet Commonly known as: NORVASC 5 mg, Oral, Daily, Take one daily. What changed: how much to take additional instructions insulin glargine 100 unit/mL injection Commonly known as: LANTUS 30 Units, Subcutaneous, Nightly, When steroid complete - resume taking 15 units rather than 30 What changed: See the new instructions. predniSONE 20 MG tablet Commonly known as: DELTASONE 40 mg, Oral, Daily What changed: additional instructions Medications To Continue Indication(s) albuterol 90 mcg/actuation HFA inhaler Commonly known as: PROAIR HFA 1 puff, Inhalation, Every 4 hours PRN amitriptyline 25 MG tablet Commonly known as: ELAVIL 25 mg, Oral, Nightly BD ULTRA-FINE 0.3 mL 31 gauge x 5/16 Generic drug: insulin syringe USE DIRECTED BIOTIN ORAL 2 tablets, Oral, Daily citalopram 20 mg tablet Commonly known as: CeleXA 20 mg, Oral, Daily cyclobenzaprine 10 MG tablet Commonly known as: FLEXERIL 1 tablet, Oral, Nightly doxycycline hyclate 100 MG tablet Commonly known as: VIBRA-TABS 100 mg, Oral, 2 times daily fluticasone-vilanterol 200-25 mcg/actuation INHALER Commonly known as: BREO ELLIPTA 1 puff, Inhalation, Daily Indication: Maintenance Therapy for Asthma gabapentin 300 MG capsule Commonly known as: NEURONTIN 300 mg, Oral, 3 times daily ipratropium-albuterol 0.5-3 mg/3 mL nebulizer Commonly known as: DUO-NEB 3 mL, Inhalation, 4 times daily lidocaine 5 % ointment Commonly known as: XYLOCAINE APPLY EXTERNALLY TO THE AFFECTED AREA 1 TO 4 TIMES DAILY NEEDED metoprolol tartrate 100 MG tablet Commonly known as: LOPRESSOR 100 mg, Oral, 2 times daily morphine 15 MG tablet Commonly known as: MSIR 15 mg, Oral, Every 12 hours oxyCODONE-acetaminophen 7.5-325 mg per tablet Commonly known as: PERCOCET 1-2 tablets, Oral, Every 6 hours PRN OXYGEN THERAPY 2 L/min, As needed simvastatin 20 MG tablet Commonly known as: ZOCOR 20 mg, Oral, Nightly Vital Signs: Blood Pressure: BP: 122/70 Pulse: Pulse: 79 Temperature: Temp: 36.6 C (97.8 F) Respirations: Resp: 19 Admission Weight: Weight: 101.6 kg (224 lb) O2 Saturation: SpO2: 96 % Discharge Weight: Weight: 101.6 kg (224 lb) BMI: Body mass index is 40.97 kg/m . Physical Exam: Gen: NAD CV: RRR, no murmurs Resp: CTAB Abd: S/ND/NT, +BS Ext: No c/c/e Neuro: A/Ox3, no focal neurologic deficits Labs - Last 36 hours: Recent Results (from the past 36 hour(s)) CBC and Diff (manual diff if necessary) Collection Time: 02/04/17 10:42 AM Result Value Ref Range WBC 8.93 4.00 - 11.00 TH/uL RBC 3.97 (L) 4.00 - 5.00 MIL/uL Hemoglobin 12.7 12.0 - 15.0 g/dL Hematocrit 39 36 - 45 % MCV 99 80 - 99 fL MCH 32 27 - 34 pg MCHC 32 32 - 36 % RDW 14.6 (H) 9.0 - 14.5 % Platelet Count 152 140 - 400 TH/uL MPV 9.6 9.4 - 12.3 fL %Segmented Neutrophils 59 45 - 78 % %Lymphocytes 27 15 - 47 % %Monocytes 10 0 - 12 % %Eosinophils 4 0 - 7 % %Basophils 0 0 - 2 % # Granulocytes 5.25 1.7 - 6.8 TH/uL # Lymphocytes 2.44 1.0 - 3.3 TH/uL # Monocytes 0.87 0.2 - 0.9 TH/uL # Eosinophils 0.34 0.0 - 0.4 TH/uL # Basophils 0.03 0.0 - 0.1 TH/uL Comprehensive Metabolic Panel Collection Time: 02/04/17 10:42 AM Result Value Ref Range Sodium 140 133 - 147 MEQ/L Potassium 4.3 3.5 - 5.3 MEQ/L Chloride 100 96 - 112 MEQ/L Carbon Dioxide 30 20 - 32 MEQ/L Anion Gap 10 5 - 17 Calcium 9.1 8.4 - 10.5 mg/dL Glucose 183 (H) 70 - 100 mg/dL Protein Total Serum 7.9 6.0 - 8.2 g/dL Albumin 4.1 3.5 - 5.0 g/dL Alkaline Phosphatase 94 42 - 140 IU/L Alanine Aminotransferase 25 13 - 69 IU/L Aspartate Aminotransferase 33 15 - 46 IU/L Bilirubin Total 0.4 0.2 - 1.3 mg/dL Blood Urea Nitrogen 17 7 - 26 mg/dL Creatinine 0.8 0.4 - 1.1 mg/dL GFR Female AA 87 60 - 200 GFR Female Non-AA 72 60 - 200 Lipase Collection Time: 02/04/17 10:42 AM Result Value Ref Range Lipase 107 23 - 300 IU/L Urinalysis Reflex Collection Time: 02/04/17 10:42 AM Result Value Ref Range Appearance, Urine Yellow Glucose Urine Negative Negative mg/dL Bilirubin Urine Negative Negative Ketones Urine Negative Negative mg/dL Specific [place], UA 1.015 1.001 - 1.030 Hemoglobin Urine Negative Negative PH Urine 5.5 5.0 - 8.0 Protein Urine Qual Negative Negative mg/dL Urobilinogen Urine Negative Negative EU/dL Nitrite Urine Negative Negative Leukocyte Esterase Positive (A) Negative Urinalysis Microscopic Only Collection Time: 02/04/17 10:42 AM Result Value Ref Range Microscopic RBC Urine 1 - 5 1 - 5 /hpf Microscopic WBC Urine 1 - 5 1 - 5 /hpf Epithelial Cells Absent Absent Hyaline Cast Absent Absent Bacteria Absent Absent Calcium Oxalate Bernadette Present (A) Absent Troponin Collection Time: 02/04/17 10:42 AM Result Value Ref Range Troponin <0.01 0.00 - 0.03 ng/mL GLUCOSE POC Collection Time: 02/04/17 4:11 PM Result Value Ref Range Glucose POC 322 (H) 70 - 100 mg/dL GLUCOSE POC Collection Time: 02/04/17 9:44 PM Result Value Ref Range Glucose POC 435 (H) 70 - 100 mg/dL GLUCOSE POC Collection Time: 02/05/17 12:35 AM Result Value Ref Range Glucose POC 363 (H) 70 - 100 mg/dL GLUCOSE POC Collection Time: 02/05/17 8:16 AM Result Value Ref Range Glucose POC 292 (H) 70 - 100 mg/dL GLUCOSE POC Collection Time: 02/05/17 11:10 AM Result Value Ref Range Glucose POC 243 (H) 70 - 100 mg/dL Imaging during this encounter: Ct Abdomen Pelvis W Contrast Result Date: 02/04/2017 Lower pole nonobstructive left renal calculus described above. Surgical absence of gallbladder and uterus. No other significant or acute abdominal or pelvic process is identified. NOTE: Parts of this report were generated with voice recognition software. J Digit Imagin2010;24(4):724-8. Xr Chest 2 Views (pa And Lateral) Result Date: 02/04/2017 Left midlung zone linear opacities consistent with subsegmental atelectasis or linear fibrosis. No consolidation. READING SITE: [facility] Cardiac Studies during this encouter: No results found. Additional Studies: None Procedures: None Time spent on this inpatient discharge was greater than 30 minutes. Rolo Hua MD [facility] Hospitalist Please page through physician paging. . documented in this encounter Discharge Instructions * Attachments The following attachments cannot be sent through Care Everywhere.* COPD, TREATMENT FOR ([facility]) * COPD FLARE ([facility]) * DIABETES, TYPE 2, UNDERSTANDING ([facility]) * TYPE 2 DIABETES, MANAGING ([facility]) documented in this encounter Medications at Time of Discharge Start Date End Date Medication Sig Dispensed Refills 02/14/2016 01/14/2028 ipratropium-albuterol Inhale 3 mL 4 360 mL 11 (DUO-NEB) 0.5-3 mg/3 mL (four) times nebulizer a day. OXYGEN THERAPY 2 L/min as 0 needed. 02/04/2017 02/14/2017 doxycycline hyclate Take 1 tablet 20 tablet 0 (VIBRA-TABS) 100 MG (100 mg tabletIndications: COPD total) by exacerbation (HCC) mouth 2 (two) times a day. 02/04/2017 02/09/2017 predniSONE (DELTASONE) 20 Take 2 10 tablet 0 MG tabletIndications: tablets (40 COPD exacerbation (HCC) mg total) by mouth daily. 02/14/2016 06/24/2017 [...] daily. mcg/actuation INHALERIndications: maintenance therapy for asthma 02/14/2016 02/18/2017 gabapentin (NEURONTIN) Take 1 270 capsule 3 300 MG capsule capsule (300 mg total) by mouth 3 (three) times a day. 02/05/2017 03/29/2017 insulin glargine (LANTUS) Inject 30 [...] as of this encounter Progress Notes * Krystal Olivas, ASSISTANT SITE MANAGER - 02/04/2017 4:26 PM CDT Respiratory Care Services Initial Consultation Note Name: Isiah Benítez CPI: [id number] Isiah Benítez was evaluated per RATE Consultation on February 04, 2017 at 1626 for respiratory therapy intervention needs. History Assessment The patient is hospitalized for Active Hospital Problems Diagnosis COPD exacerbation (HCC) Post-op pain Morbid obesity due to excess calories (HCC) IDDM (insulin dependent diabetes mellitus) (HCC) HTN (hypertension) and has co-existing disease process of COPD Social History Substance Use Topics Smoking status: Former Smoker Quit date: 09/14/2009 Smokeless tobacco: Never Used Comment: quit 7 years ago Alcohol use No Current Facility-Administered Medications Medication Dose Route Frequency Provider Last Rate Last Dose amitriptyline (ELAVIL) tablet 25 mg 25 mg Oral Nightly Sheryl Anthony rver, DO amLODIPine (NORVASC) tablet 2.5 mg 2.5 mg Oral Daily Sheryl Hayden er, DO citalopram (CeleXA) tablet 20 mg 20 mg Oral Daily Sheryl Paredes DO dextrose 50% (D50W) syringe 25-50 mL 25-50 mL Intravenous PRN Sheryl Boss DO Or dextrose 50% (D50W) 50 % injection 25-50 mL 25-50 mL Intravenous PRN Marcel Paredes DO Or dextrose 10% (D10W) bolus 125-250 mL 125-250 mL Intravenous PRN Sheryl Coronado DO doxycycline hyclate (VIBRA-TABS) tablet 100 mg 100 mg Oral BID Sheryl Renteria DO fentaNYL (SUBLIMAZE) injection 50 mcg 50 mcg Intravenous Q2H PRN Ralf shelton MD fluticasone-vilanterol (BREO ELLIPTA) 200-25 mcg/actuation inhaler 1 puff 1 puff Inhalation Daily Sheryl Paredes DO Stopped at 02/04/17 1612 gabapentin (NEURONTIN) capsule 300 mg 300 mg Oral TID Sheryl decker DO glucagon (GLUCAGEN) injection 1 mg 1 mg Intramuscular PRN Sheryl Grey DO Or glucagon (GLUCAGEN) injection 1 mg 1 mg Subcutaneous PRN Sheryl Goetz DO heparin (porcine) 5,000 unit/mL injection 5,000 Units 5,000 Units Subcutane ous Q8H Sheryl Paredes DO insulin glargine (LANTUS) injection 15 Units 15 Units Subcutaneous Nightly Sheryl Paredes DO insulin lispro (HumaLOG) injection 1-5 Units 1-5 Units Subcutaneous 4 times daily before meals and nightly Sheryl Paredes, ipratropium-albuterol (DUO-NEB) 0.5-3 mg/3 mL nebulizer solution 3 mL 3 mL Inhalation 4x daily Sheryl Paredes DO 3 mL at 02/04/17 1622 metoprolol tartrate (LOPRESSOR) tablet 100 mg 100 mg Oral BID Sheryl Boss DO morphine (MSIR) tablet 15 mg 15 mg Oral Q12H Sheryl Paredes DO ondansetron (ZOFRAN) injection 4 mg 4 mg Intravenous Q6H PRN Ralf ebllo MD pravastatin (PRAVACHOL) tablet 40 mg 40 mg Oral Nightly Sheryl Oneil arvDO ronel predniSONE (DELTASONE) tablet 40 mg 40 mg Oral Daily Sheryl Hayden er, DO Current Outpatient Prescriptions Medication Sig Dispense Refill albuterol (PROAIR HFA) 90 mcg/actuation HFA inhaler Inhale 1 puff every 4 (f our) hours as needed for wheezing. 18 g 11 amitriptyline (ELAVIL) 25 MG tablet Take 1 tablet (25 mg total) by mouth nig htly. 90 tablet 3 amLODIPine (NORVASC) 2.5 MG tablet Take 2 tablets (5 mg total) by mouth eve y. Take one daily. (Patient taking differently: Take 2.5 mg by mouth daily. Take one daily.) 90 tablet 3 BD INSULIN SYRINGE ULTRA-FINE 0.3 mL 31 gauge x 5/16 Syrg USE DIRECTED 10 0 each 0 BIOTIN ORAL Take 2 tablets by mouth daily. citalopram (CELEXA) 20 MG tablet Take 1 tablet (20 mg total) by mouth daily. 90 tablet 3 cyclobenzaprine (FLEXERIL) 10 MG tablet Take 1 tablet by mouth nightly. doxycycline hyclate (VIBRA-TABS) 100 MG tablet Take 1 tablet (100 mg total) by mouth 2 (two) times a day. 20 tablet 0 fluticasone-vilanterol (BREO ELLIPTA) 200-25 mcg/actuation INHALER Inhale 1 puff daily. 3 each 3 gabapentin (NEURONTIN) 300 MG capsule Take 1 capsule (300 mg total) by mouth 3 (three) times a day. 270 capsule 3 ipratropium-albuterol (DUO-NEB) 0.5-3 mg/3 mL nebulizer Inhale 3 mL 4 (four) times a day. 360 mL 11 LANTUS 100 unit/mL injection INJECT 15 UNITS UNDER THE SKIN EVERY EVENING 10 mL 3 lidocaine (XYLOCAINE) 5 % ointment APPLY EXTERNALLY TO THE AFFECTED AREA 1 T O 4 TIMES DAILY NEEDED 30 g 0 metoprolol tartrate (LOPRESSOR) 100 MG tablet Take 1 tablet (100 mg total) b y mouth 2 (two) times a day. 180 tablet 3 morphine (MSIR) 15 MG tablet Take 15 mg by mouth every 12 (twelve) hours. oxyCODONE-acetaminophen (PERCOCET) 7.5-325 mg per tablet Take 1-2 tablets by mouth every 6 (six) hours as needed. OXYGEN THERAPY 2 L/min as needed. predniSONE (DELTASONE) 20 MG tablet Take 2 tablets (40 mg total) by mouth da edu. (Patient taking differently: Take 40 mg by mouth daily. For 5 days starting 02/04/17) 10 tablet 0 simvastatin (ZOCOR) 20 MG tablet Take 1 tablet (20 mg total) by mouth nightl y. 90 tablet 3 Physical Assessment The patient's has the following signs/symptoms evaluated to determine criteria f or service: SaO2 95% on 2 LPM, HR 85 bpm, Patient is spontaneously breathing Breath Sounds CLEAR/DEC Respiratory Pattern NORmal Cough loose non productive Sputum na Color na Amount na Other pt use neb tx as needed , breo daily. And o2 as needed at home. Protocol The patient meets criteria for Respiratory Care Service based upon the assessmen t above. Treatment Plan The treatment plan identified for the patient is Aerosol Drug Therapy Discharge Considerations Not Applicable documented in this encounter H&P Notes * Sheryl Paredes, - 02/04/2017 3:12 PM CDT [facility] - [facility] & Physical Patient Name: Isiah Do Board Account No: [id number] Date of : 1950 Date of Admission: 02/04/2017 10:34 AM Primary Care Physician: Ebony Sharp MD; Subjective Chief Complaint: Abdominal Cramping History of Present illness: Ms. Isiah Benítez is a 66 y.o. female with history o f COPD using PRN 2 liters of O2, insulin dependent DM, HTN, HLD and chronic ankl e pain who presented with dyspnea and abdominal pain. She was apparently seen i n the ED earlier and discharged with steroids and doxycycline. She took these t o the pharmacy to be filled and then went at [employer] with her daughter. Af ter eating most of her burrito, she bit into it and there was plastic so she sto pped eating. Shortly after she had nausea and stomach cramping and came to the ED where CT ab/pelvis was negative. She's had no vomiting of diarrhea. She was noted to be hypoxic in ED with sats 89-90% on room air. She reports using 2 lit ers as needed at home and recently over the past few weeks has been having to us e the O2 more. She has had increased cough but no sputum production. No fever/ chills. Currently is feeling better after treatment in the ED and is no longer wheezing. Still having some mild abdominal discomfort. She feels that this exa cerbation has been coming on over the past few weeks as she has been taking OTC dayquil, nyquil with no relief of her dyspnea. Review of Systems: A 10-point review of systems was performed and was negative e xcept as noted above. Past Medical History: She has a past medical history of Arthritis; Chronic pain; COPD (chronic obstructive pulmonary disease) (HCC); Diabetes mellitus (HCC); Hy perlipidemia; and Hypertension. Past Surgical History: She has a past surgical history that includes se ction, classic; Cholecystectomy; Hysterectomy; Cataract extraction, bilateral; A nkle surgery (Left); and Knee surgery. Family History: She indicated that the status of her mother is unknown. She dara cated that the status of her father is unknown. Her family history includes Cancer in her father and mother; [facility] and mother. Social History: She reports that she quit smoking about 7 years ago. She has nev er used smokeless tobacco. She reports that she does not drink alcohol or use dr walsh. Allergies: She is allergic to lisinopril; metformin; and sulfa (sulfonamide anti biotics). Prior to Admission medications Medication Sig albuterol (PROAIR HFA) 90 mcg/actuation HFA inhaler Inhale 1 puff every 4 (four) hours as needed for wheezing. amitriptyline (ELAVIL) 25 MG tablet Take 1 tablet (25 mg total) by mouth nightly . amLODIPine (NORVASC) 2.5 MG tablet Take 2 tablets (5 mg total) by mouth daily. T hina one daily. Patient taking differently: Take 2.5 mg by mouth daily. Take one daily. BD INSULIN SYRINGE ULTRA-FINE 0.3 mL 31 gauge x 5/16 Syrg USE DIRECTED BIOTIN ORAL Take 2 tablets by mouth daily. citalopram (CELEXA) 20 MG tablet Take 1 tablet (20 mg total) by mouth daily. cyclobenzaprine (FLEXERIL) 10 MG tablet Take 1 tablet by mouth nightly. doxycycline hyclate (VIBRA-TABS) 100 MG tablet Take 1 tablet (100 mg total) by m outh 2 (two) times a day. fluticasone-vilanterol (BREO ELLIPTA) 200-25 mcg/actuation INHALER Inhale 1 puff daily. gabapentin (NEURONTIN) 300 MG capsule Take 1 capsule (300 mg total) by mouth 3 ( three) times a day. ipratropium-albuterol (DUO-NEB) 0.5-3 mg/3 mL nebulizer Inhale 3 mL 4 (four) joann es a day. LANTUS 100 unit/mL injection INJECT 15 UNITS UNDER THE SKIN EVERY EVENING lidocaine (XYLOCAINE) 5 % ointment APPLY EXTERNALLY TO THE AFFECTED AREA 1 TO 4 TIMES DAILY NEEDED metoprolol tartrate (LOPRESSOR) 100 MG tablet Take 1 tablet (100 mg total) by mo [facility] 2 (two) times a day. morphine (MSIR) 15 MG tablet Take 15 mg by mouth every 12 (twelve) hours. oxyCODONE-acetaminophen (PERCOCET) 7.5-325 mg per tablet Take 1-2 tablets by tanna every 6 (six) hours as needed. OXYGEN THERAPY 2 L/min as needed. predniSONE (DELTASONE) 20 MG tablet Take 2 tablets (40 mg total) by mouth daily. Patient taking differently: Take 40 mg by mouth daily. For 5 days starting 6/15/ 17 simvastatin (ZOCOR) 20 MG tablet Take 1 tablet (20 mg total) by mouth nightly. BREO ELLIPTA 100-25 mcg/dose INHALER Objective Triage Vital Signs: Temp: 36.7 C (98 F) Pulse: 78 Resp: 20 BP: (!) 158/97 Sp O2: 96 % Height: 157.5 cm (5' 2") Weight: 101.6 kg (224 lb) Physical Exam: Gen: Calm, cooperative HEENT: NC/AT, PERRLA, EOMI, MMM's CV: RRR, S1 & S2 normal, no murmurs, gallops Resp: Diminished but no wheezes currently Abd: S/ND/NT, +BS, no guarding or rebound Ext: No c/c/e Skin: Warm, dry, & intact with no obvious rashes or significant lesions Neuro: A/Ox4, CN's II-XII grossly intact, no focal neurologic deficits I have personally reviewed the patient's vital signs, laboratory/pathology/cultu re results (as indicated), current inpatient medications and software support engineer notes with pertainent findings noted within the assessment/plan. Assessment/Plan Ms. Isiah Benítez is a 66 y.o. female who was admitted on 02/04/2017 with complai nt of Abdominal Cramping. COPD exacerbation (HCC) Continue duonebs scheduled and start prednisone 40 mg PO daily -Patient already uses O2 on PRN basis at home -RATE consult -Resume home Breo -Doxycycline BID for 5 days -IS to bedside HTN (hypertension) Resume metoprolol BID and norvasc IDDM (insulin dependent diabetes mellitus) (HCC) Resume lantus 15 u QHS -Start SSI since on steroids Post-op pain Patient with ankle fusion in July and follows closely with ortho -on MS contin 15 BID and oxycodone 10mg PRN for chronic pain Morbid obesity due to excess calories (HCC) Counseled regarding weight loss In addition, see my orders for additional details regarding this patients treatm ent plan. Diet: Diet NPO VTE Prevention: Heparin subcutaneous The patient does not have an advanced directive. Her spouse/partner is her surro gate decision maker/DPOA. Code Status: Full code Disp: Admit the patient as Observation to med/surg for treatment as noted above. Sheryl ParedesDO [facility] Please page through physician paging. . documented in this encounter Consult Notes * Zee Roper, RN - 02/05/2017 2:51 PM CDT Diabetes education consult; Pt stated she was diagnosed with DM 2 about 7-8 year s ago and received DM education at [facility] at this time. Reviewed daily DM self tori caro. She is not doing SBGM because she doesn't have a meter. She was given a Verio Flex BG meter kit and was instructed on use. She verbalized and demonstrat ed understanding of SBGM using the Verio Flex. Hyper and hypoglycemia was discus sed. Pt was instructed to do SBGM 2 times daily alternating testing time until s he sees Dr. Sharp. Prescriptions were given for testing supplies. ADA BG target s were discussed. OP education was encouraged and information about SLE program was provided. Pt was attentive and receptive during instruction. DM education wa s completed. documented in this encounter ED Notes * Jamila Nam, BODY WORKER - 02/04/2017 11:31 AM CDT 02/04/2017 [facility] History Chief Complaint Patient presents with Abdominal Cramping Patient reports having a [employer] burrito, found plastic in the burrito patien t stopped eating it. Shortly after patient started experiencing cramping pain in stomach. 910 pain. 66-year-old female patient presents to the ER complaining of epigastric cramping and aching after eating a burrito at [employer] earlier this morning. She states she is afraid she swallowed plastic which is causing her pain. She states she no ticed a piece of plastic while chewing the burrito. She denies any nausea or vom iting. She reports a normal bowel movement this morning. She has a history of a cholecystectomy, an appendectomy, and a hysterectomy. She denies any urinary sym ptoms or fevers. She denies any chest pain. She states she was seen this morning at the walk-in clinic here for a COPD exacerbation. She was sent home with pred nisone and doxycycline but has not taken a dose yet as she was waiting her presc riptions to get filled. She does report a history of COPD and uses oxygen at [facility] as needed. She follows up with the records supervisor and is on inhalers/nebulizers . She states her symptoms started 2 weeks ago. She reports a dry cough with whee zing and shortness of breath. She states her symptoms are worse at night. She st ates her shortness of breath is worse with exertion. Patient also reports a runn y nose but denies earache or sore throat. During my exam on room air the patient was 89-90%, 2 L of O2 is placed on oxygen came up to 95%. The history is provided by the patient. Abdominal Cramping Pain location: Epigastric Pain quality: aching and cramping Pain radiates to: Epigastric region and RUQ Pain severity: Severe Onset quality: Sudden Duration: 2 hours Timing: Constant Progression: Worsening Chronicity: New Context: suspicious food intake Relieved by: None tried Worsened by: Nothing Ineffective treatments: None tried Associated symptoms: cough and shortness of breath Associated symptoms: no chest pain, no diarrhea, no dysuria, no fever, no hemate mesis, no hematochezia, no hematuria, no nausea, no vaginal bleeding, no vaginal discharge and no vomiting Cough: Cough characteristics: Non-productive Severity: Moderate Onset quality: Gradual Duration: 2 weeks Timing: Constant Progression: Worsening Chronicity: New Shortness of breath: Severity: Moderate Onset quality: Gradual Duration: 2 weeks Timing: Constant Progression: Worsening Past Medical History: Diagnosis Date Arthritis COPD (chronic obstructive pulmonary disease) (HCC) Diabetes mellitus (HCC) Hyperlipidemia Hypertension Past Surgical History: Procedure Laterality Date ANKLE SURGERY Left CATARACT EXTRACTION, BILATERAL SECTION, CLASSIC CHOLECYSTECTOMY HYSTERECTOMY KNEE SURGERY bi-lateral Family History Problem Relation Age of Onset Cancer Mother Stroke Mother Cancer Father Stroke Father Social History Substance Use Topics Smoking status: Former Smoker Quit date: 09/14/2009 Smokeless tobacco: Never Used Alcohol use No Review of Systems Constitutional: Negative for fever. Respiratory: Positive for cough and shortness of breath. Cardiovascular: Negative for chest pain. Gastrointestinal: Negative for diarrhea, hematemesis, hematochezia, nausea and v omiting. Genitourinary: Negative for dysuria, hematuria, vaginal bleeding and vaginal dis charge. All other systems reviewed and are negative. Physical Exam BP 143/83 (BP Location: Left arm) | Pulse 78 | Temp 36.7 C (98 F) (Oral) | Resp 20 | Ht 1.575 m (5' 2") | Wt 101.6 kg (224 lb) | SpO2 95% | BMI 40.97 kg/m Physical Exam Constitutional: She is oriented to person, place, and time. She appears well-dev eloped. HENT: Head: Normocephalic. Right Ear: Hearing, tympanic membrane, external ear and ear canal normal. Left Ear: Hearing, external ear and ear canal normal. Nose: Nose normal. Mouth/Throat: Uvula is midline, oropharynx is clear and moist and mucous membran es are normal. Left cerumen impaction Eyes: Pupils are equal, round, and reactive to light. Neck: Normal range of motion. Cardiovascular: Normal rate, regular rhythm, normal heart sounds and normal puls es. Pulmonary/Chest: Effort normal. No tachypnea. No respiratory distress. She has d ecreased breath sounds. She has wheezes. She has no rhonchi. She has no rales. Abdominal: Soft. Normal appearance and bowel sounds are normal. There is tendern ess in the right upper quadrant and epigastric area. There is no CVA tenderness. Musculoskeletal: Normal range of motion. Neurological: She is alert and oriented to person, place, and time. Skin: Skin is warm. Nursing note and vitals reviewed. I interpreted the patients ECG as NSR at 80 bpm with Normal QRS, normal intervals, normal S-T segments, normal T w aves, normal axis and no ectopy Results for orders placed or performed during the hospital encounter of 02/04/17 (from the past 24 hour(s)) CBC and Diff (manual diff if necessary) Result Value Ref Range WBC 8.93 4.00 - 11.00 TH/uL RBC 3.97 (L) 4.00 - 5.00 MIL/uL Hemoglobin 12.7 12.0 - 15.0 g/dL Hematocrit 39 36 - 45 % MCV 99 80 - 99 fL MCH 32 27 - 34 pg MCHC 32 32 - 36 % RDW 14.6 (H) 9.0 - 14.5 % Platelet Count 152 140 - 400 TH/uL MPV 9.6 9.4 - 12.3 fL %Segmented Neutrophils 59 45 - 78 % %Lymphocytes 27 15 - 47 % %Monocytes 10 0 - 12 % %Eosinophils 4 0 - 7 % %Basophils 0 0 - 2 % # Granulocytes 5.25 1.7 - 6.8 TH/uL # Lymphocytes 2.44 1.0 - 3.3 TH/uL # Monocytes 0.87 0.2 - 0.9 TH/uL # Eosinophils 0.34 0.0 - 0.4 TH/uL # Basophils 0.03 0.0 - 0.1 TH/uL Comprehensive Metabolic Panel Result Value Ref Range Sodium 140 133 - 147 MEQ/L Potassium 4.3 3.5 - 5.3 MEQ/L Chloride 100 96 - 112 MEQ/L Carbon Dioxide 30 20 - 32 MEQ/L Anion Gap 10 5 - 17 Calcium 9.1 8.4 - 10.5 mg/dL Glucose 183 (H) 70 - 100 mg/dL Protein Total Serum 7.9 6.0 - 8.2 g/dL Albumin 4.1 3.5 - 5.0 g/dL Alkaline Phosphatase 94 42 - 140 IU/L Alanine Aminotransferase 25 13 - 69 IU/L Aspartate Aminotransferase 33 15 - 46 IU/L Bilirubin Total 0.4 0.2 - 1.3 mg/dL Blood Urea Nitrogen 17 7 - 26 mg/dL Creatinine 0.8 0.4 - 1.1 mg/dL GFR Female AA 87 60 - 200 GFR Female Non-AA 72 60 - 200 Lipase Result Value Ref Range Lipase 107 23 - 300 IU/L Urinalysis Reflex Result Value Ref Range Appearance, Urine Yellow Glucose Urine Negative Negative mg/dL Bilirubin Urine Negative Negative Ketones Urine Negative Negative mg/dL Specific [place], UA 1.015 1.001 - 1.030 Hemoglobin Urine Negative Negative PH Urine 5.5 5.0 - 8.0 Protein Urine Qual Negative Negative mg/dL Urobilinogen Urine Negative Negative EU/dL Nitrite Urine Negative Negative Leukocyte Esterase Positive (A) Negative Urinalysis Microscopic Only Result Value Ref Range Microscopic RBC Urine 1 - 5 1 - 5 /hpf Microscopic WBC Urine 1 - 5 1 - 5 /hpf Epithelial Cells Absent Absent Hyaline Cast Absent Absent Bacteria Absent Absent Calcium Oxalate Bernadette Present (A) Absent Troponin Result Value Ref Range Troponin <0.01 0.00 - 0.03 ng/mL CT Abdomen Pelvis w contrast Final Result Lower pole nonobstructive left renal calculus described above. Surgical absence of gallbladder and uterus. No other significant or acute abdominal or pelvic process is identified. NOTE: Parts of this report were generated with voice recognition software. J Digit Imagin2010;24(4):314-8. XR Chest 2 views (PA and lateral) Final Result Left midlung zone linear opacities consistent with subsegmental atelectasis or linear fibrosis. No consolidation. READING SITE: [facility] Juli have reviewed all of the labs and radiology studies. ED Course Procedures MDM Number of Diagnoses or Management Options COPD exacerbation (HCC): Epigastric pain: Hypoxia: Diagnosis management comments: Patient to be admitted to the hospitalist service s. Patient aware of this plan of care. Amount and/or Complexity of Data Reviewed Clinical lab tests: ordered and reviewed Tests in the radiology section of CPT: ordered and reviewed ED Course ED Clinical Impression 1. COPD exacerbation (HCC) 2. Hypoxia 3. Epigastric pain Jamila Nam, SHILOH 02/04/17 1325 * Nanci Cunha RN - 02/04/2017 10:44 AM CDT Patient reports having a [employer] burrito, found plastic in the burrito patient stopped eating it. Shortly after patient started experiencing cramping pain in s tomach. 9/10 pain. documented in this encounter Miscellaneous Notes * Nutrition Note - Francoise Anders RD - 02/05/2017 1:48 PM CDT Nutrition Education [facility] Patient: Isiah Benítez Age: 66 y.o. : 1950 PRIMARY CARE PROVIDER: Ebony Sharp MD ATTENDING PHYSICIAN: Rolo Hua MD RD consulted for CHO counting Nutrition Education. Chart Reviewed Education Summary: Handout from [facility] provided along with name and number. Review ed with pt CHOs, CHO serving, # CHO servings/meal and snack, 3 meals/day every 4 to 6 hours, and label reading. Answered pt's questions and she voiced understa nding. Electronically signed by Francoise Anders 02/05/2017 1:48 PM * Care Progression Initial Assessment - Zo Juan, JET - 02/05/2017 11:42 AM CDT Care Progression Initial Assessment Note Additional information: Pt was alert, oriented and agreeable to completing asses sment/establishing a mutually agreed upon plan for dc. PCP, pharm and Rx confirm ed. Pt has a hx of COPD and reports she's insulin dependent. Currently admitted with stomach cramps which she attributes to plastic found in [employer] burrito e was eating. Pt stated she is independent, retired and utilizes a walker for assistance with ambulation. Pt reports she utilizes a CPAP and 2L 02 as needed, provided by [employer] ). Pt resides with her daughter and declined additi onal support/resources at this time. Pt will discharge home, no needs reported. SW will remain available to facilitate continuum of care needs. 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 Name: Daughter- Lauryn Joy, Patient Repres entative Patient's Living Arrangement: House ( Pt resides with her daughter in [facility]) Patients support system has been Support System: Children, Extended family, [facility] Patient has verbalized the following concerns at discharge: Family Concerns: No Pt has Payor: MEDICARE / Plan: MEDICARE PART A B / Product Type: Medicare / Legal Information: Advance Directives: Power of Sales Review Clerk for health care, Legal Documentation: Requested Advance Directives Status: Follow up needed Patients functioning status prior to admission to the hospital was: Functional Screening: Completely Independent Patient currently uses at home: Assistive Devices: Cane, Wheelchair, Walker, Eye glasses Respiratory items:: Oxygen, CPap (2L oxygen as needed) Oxygen Information: Johann e concentrator, Portable tanks Patient states their Income Source: Not employed. Not employed: Disabled, Taylor rnment Assistance: Medicare, SS/SSI Income/Expense Information: Income meets expenses Resources Available: Rx benefits Current Community Resources: (No community services utilized at this time.) Verified that patients primary care physician is Ebony Sharp MD and recei ves their medications from [facility] [id number] - [place], [place] - [address] [facility] [address] [facility] [id number] Zo Luna [employer] [phone] * Plan of Care - Juventino Patel RN - 02/05/2017 10:28 AM CDT Problem: Knowledge Deficit Goal: Patient/family/caregiver [...] during their Inpatient stay Outcome: Progressing * Hospital Course - Rolo Hua MD - 02/05/2017 8:01 AM CDT Ms. Isiah Benítez is a 66 y.o. female with history of COPD using PRN 2 liters of O2, insulin dependent DM, HTN, HLD and chronic ankle pain who presented with dy spnea and abdominal pain. She was apparently seen in the ED earlier on day of a dmission and discharged with steroids and doxycycline. She took [facility] to the [facility] to be filled and then went at ate [employer] with her daughter. After eati ng most of her burrito, she bit into it and there was plastic so she stopped eat ing. Shortly after she had nausea and stomach cramping and came to the ED where CT ab/pelvis was negative other than non obstructing L renal calculus. She's h ad no vomiting or diarrhea. She was noted to be hypoxic in ED with sats 89-90% on room air. She was admitted for copd exacerbation. She received steroids and has had improvement of her sx. She is not wheezing. She is comfortable returning home at this point to continue her steroid taper. Her ab pain is better but she thinks she needs to have a BM. She wishes for so me milk of mag but can dc home after she receives it. Exam of abdomen is benign . It was explained to her that she has a renal calculus and continued pain on t he L side could be related to this and may need further w/u or urology visit as OP. She has poorly controlled sugars on steroids - lantus was doubled and ssi was ad ded along with a visit from DM educator. Once completed education she will retu rn home. * Assessment & Plan Note - Rolo Hua MD - 02/05/2017 7:51 AM CDT Associated Problem(s): Renal calculus - 9x7 L renal calculus - pt aware - no hydronephrosis * Plan of Care - Gaby Bourgeois RN - 02/05/2017 12:12 AM CDT Problem: Knowledge Deficit Goal: Patient/family/caregiver demonstrates understanding of disease process, tr eatment plan, medications, and discharge instructions Outcome: Progressing Discussed plan of care with patient. Verbalized understanding. Goal: Patient/Family/Caregiver sets realistic goals Outcome: Progressing Discussed goals with patient. Problem: Pain Goal: Patient's pain/discomfort is manageable Outcome: Progressing Pain well controlled Problem: Skin Integrity Goal: Skin integrity is maintained or improved Outcome: Progressing Skin intact Problem: Safety Goal: Patient will be injury free during hospitalization Outcome: Progressing Calls appropriately when in need of assistance. Problem: Nutrition Goal: Patient's nutritional intake is adequate Outcome: Progressing Good PO intake. Problem: Risk for Falls Goal: Patient will not fall during their Inpatient stay Outcome: Progressing Calls appropriately when in need of assistance. * Plan of Care - Tacos Hilton RN - 02/04/2017 6:00 PM CDT Problem: Knowledge Deficit Goal: Patient/family/caregiver demonstrates understanding of disease process, tr eatment plan, medications, and discharge instructions Outcome: Progressing Problem: Pain Goal: Patient's pain/discomfort is manageable Outcome: Progressing Problem: Safety Goal: Patient will be injury free during hospitalization Outcome: Progressing Problem: Nutrition Goal: Patient's nutritional intake is adequate Outcome: Progressing * Assessment & Plan Note - Sheryl aPredes DO - 02/04/2017 4:01 PM CDT Associated Problem(s): COPD exacerbation (HCC) Continue duonebs scheduled and start prednisone 40 mg PO daily -Patient already uses O2 on PRN basis at home -RATE consult -Resume home Breo -Doxycycline BID for 5 days -IS to bedside * Assessment & Plan Note - Sheryl Paredes DO - 02/04/2017 4:00 PM CDT Associated Problem(s): Post-op pain Patient with ankle fusion in July and follows closely with ortho -on MS contin 15 BID and oxycodone 10mg PRN for chronic pain * Assessment & Plan Note - Sheryl Paredes DO - 02/04/2017 4:00 PM CDT Associated Problem(s): Morbid obesity due to excess calories (HCC) Counseled regarding weight loss * Assessment & Plan Note - Rolo Hua MD - 02/04/2017 3:59 PM CDT Associated Problem(s): Type 2 diabetes mellitus with hyperglycemia, with long-te rm current use of insulin (HCC) - only takes lantus 15 at home - poor control here - increase lantus to 30 - cont ssi and provide humalog and ssi instructs for home - dm educator - reduce lantus back to 15 after steroid complete * Assessment & Plan Note - Sheryl Paredes DO - 02/04/2017 3:59 PM CDT Associated Problem(s): Essential hypertension Resume metoprolol BID and norvasc documented in this encounter Plan of Treatment Care Team Description Date [place] [address], [place] [address] [phone] 02/29/2020 Office Visit Urology Order Schedule Name Type Priority Associated Diag noses Add-On for 1 Occurrences starting 2016 until 02/04/2017 Culture, Urine Microbiology Add-On documented as of this encounter Procedures Comments Procedure Name Priority Date/Time Associated Diag nosis GLUCOSE POC Routine 02/05/2017 11:10 AM CDT GLUCOSE POC Routine 02/05/2017 8:16 AM CDT GLUCOSE POC Routine 02/05/2017 12:35 AM CDT GLUCOSE POC Routine 02/04/2017 9:44 PM CDT GLUCOSE POC Routine 02/04/2017 4:11 PM CDT ECG STAT 02/04/2017 12:20 PM CDT XR CHEST 2 VIEWS (PA AND STAT 02/04/2017 LATERAL) 12:[address] ABDOMEN PELVIS W STAT 02/04/2017 CONTRAST 12:02 PM CDT URINALYSIS MICROSCOPIC STAT 02/04/2017 ONLY 10:42 AM CDT URINALYSIS REFLEX STAT 02/04/2017 10:42 AM CDT TROPONIN STAT 02/04/2017 10:42 AM CDT LIPASE STAT 02/04/2017 10:42 AM CDT COMPREHENSIVE METABOLIC STAT 02/04/2017 PANEL 10:42 AM CDT CBC AND DIFF (MANUAL DIFF STAT 02/04/2017 IF NECESSARY) 10:42 AM CDT documented in this encounter Results * GLUCOSE POC (02/05/2017 11:10 AM CDT) Only the most recent of 5 results within the time period is included. 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 No consolidation. READING SITE: [facility] Narrative Performed At Patient: ISIAH BENÍTEZ Sex#: F # [id number] Jose#: [id number] Location: [facility] SED- Procedure Requested: [id number] XR CHEST 2 VIEWS (PA AND LATERAL) Reason for Exam: cough Exam Ordered: 02/04/2017 11 25 Exam Date/Time: 02/04/2017 121 0 Begin exam date/time: 02/04/2017 120 0 XR CHEST 2 VIEWS (PA AND LATERAL) INDICATION: cough. COMPARISON STUDY: Portable chest dated 06/29/2016. FINDINGS: Lungs: Normal lung volume. No pulmonary mass or consolidation. Left midlung zone linear opacity consistent with subsegmental atelectasis versus linear fibrosis. The tracheobron chial tree and hilar structures are stable. Pleura: No pleural effusion or pneumoth orax. Heart and Mediastinum: The cardiomedias tinal silhouette is normal. Aortic atherosclerosis. Bones and Soft Tissues: No acute skelet al or soft tissue abnormality. Procedure Note Interface, Rad Results In - 02/04/2017 12:38 PM CDT Patient: ISIAH BENÍTEZ Sex#: F # [id number] Jose#: [id number] Location: [facility] SED- Procedure Requested: [id number] XR CHEST 2 VIEWS (PA AND LATERAL) Reason for Exam: cough Exam Ordered: 02/04/2017 1125 Exam Date/Time: 02/04/2017 1210 Begin exam date/time: 02/04/2017 1200 XR CHEST 2 VIEWS (PA AND LATERAL) INDICATION: cough. COMPARISON STUDY: Portable chest dated 06/29/2016. FINDINGS: Lungs: Normal lung volume. No pulmonary mass or consolidation. Left midlung zone linear opacity consistent with subsegmental atelectasis versus linear fibrosis. The tracheobronchial tree and hilar structures are stable. Pleura: No pleural effusion or pneumothorax. Heart and Mediastinum: The cardiomediastinal silhouette is normal. Aortic atherosclerosis. Bones and Soft Tissues: No acute skeletal or soft tissue abnormality. IMPRESSION Left midlung zone linear opacities consistent with subsegmental atelectasis or linear fibrosis. No consolidation. READING SITE: [facility] Performing Organization Address City/State/Zipcode Ph one Number [facility] * CT Abdomen Pelvis w contrast (02/04/2017 12:02 PM CDT) Specimen Impressions Performed At Lower pole nonobstructive left renal calculus describ ed above. [facility] Surgical absence of gallbladder and rosebud sydni. No other significant or acute abdominal or pelvic process is identified. NOTE: Parts of this report were generated wit [employer] voice recognition software. J Digit Imagin2010;24(4):103-7. Narrative Performed At Patient: ISIAH BENÍTEZ Sex#: F # [id number] Jose#: [id number] [place] [facility] [place]- Procedure Requested: [id number] CT ABDOM EN PELVIS W CONTRAST Reason for Exam: RUQ and epigastric p ain Exam Ordered: 02/04/2017 11 26 Exam Date/Time: 02/04/2017 120 2 Begin exam date/time: 02/04/[address] ABDOMEN PELVIS W CONTRAST Indication: RUQ and epigastric pain READING SITE: [facility] Technique: Helical CT images were obtained through the abdomen and pelvis with 100 mL Omnipaque 350contrast. Sagittal and Coronal reformatted images were performed. Comparison: None Findings: The lung bases appear clear. The liver demonstrates no focal hepatic lesions. The spleen demonstrates no f ocal lesions. The adrenal glands demonstrate no mass. The pancreas dem onstrates no mass or suspicious lesions. The gallbladder is surgicall y absent. The right kidney demonstrates no mass c alculi or hydronephrosis. The left kidney demonstrates demonstrates l ower pole 9 x 7 mm nonobstructive calculus. No retroperitoneal mass or ly mphadenopathy is identified. There is no bowel dilatation or obstruc tion identified. The appendix is normal in caliber. PELVIS: There are no significant pelvic fluid c ollections or pelvic masses.No definite pelvic lymphadenopathy is dete cted. The urinary bladder demonstrates no calcifications or obvio us mass lesions. The uterus is surgically absent. Procedure Note Interface, Rad Results In - 02/04/2017 12:47 PM CDT Patient: ISIAH BENÍTEZ Sex#: Paulina # 1950 Jose#: [id number] Location: [facility] [place]- Procedure Requested: [id number] CT ABDOMEN PELVIS W CONTRAST Reason for Exam: RUQ and epigastric pain Exam Ordered: 02/04/2017 1126 Exam Date/Time: 02/04/2017 1202 Begin exam date/time: 02/04/[address] ABDOMEN PELVIS W CONTRAST Indication: RUQ and epigastric pain READING SITE: [facility] Technique: Helical CT images were obtained through the abdomen and pelvis with 100 mL Omnipaque 350contrast. Sagittal and Coronal reformatted images were performed. Comparison: None Findings: The lung bases appear clear. The liver demonstrates no focal hepatic lesions. The spleen demonstrates no focal lesions. The adrenal glands demonstrate no mass. The pancreas demonstrates no mass or suspicious lesions. The gallbladder is surgically absent. The right kidney demonstrates no mass calculi or hydronephrosis. The left kidney demonstrates demonstrates lower pole 9 x 7 mm nonobstructive calculus. No retroperitoneal mass or lymphadenopathy is identified. There is no bowel dilatation or obstruction identified. The appendix is normal in caliber. PELVIS: There are no significant pelvic fluid collections or pelvic masses.No definite pelvic lymphadenopathy is detected. The urinary bladder demonstrates no calcifications or obvious mass lesions. The uterus is surgically absent. IMPRESSION Lower pole nonobstructive left renal calculus described above. Surgical absence of gallbladder and uterus. No other significant or acute abdominal or pelvic process is identified. NOTE: Parts of this report were generated with voice recognition software. J Digit Imagin2010;24(4):724-8. Performing Organization Address City/State/Zipcode Ph one Number [facility] * Troponin (02/04/2017 10:42 AM CDT) Troponin <0.01 0.00 - 0.03 ng/mL [facility] Comment: [facility] Troponin Value [facility] Interpretation 0.00 - 0.03 Healthy 0.04 - 0.12 Increased Cardiac Risk >0.12 Myocardial Infarction Troponin may not become elevated until 6 to 8 hours after onset of symptoms. Specimen Blood Performing Organization Address City/State/[facility] Ph one Number [facility] [address] [place] [address] [facility] [address] [facility] [place] [address], [place] [phone] [facility] * Urinalysis Microscopic Only (02/04/2017 10:42 AM CDT) Microscopic RBC 1 - 5 1 - 5 /hpf [facility] Urine [facility] Microscopic WBC 1 - 5 1 - 5 /hpf [facility] Urine [facility] Epithelial Absent Absent [facility] Cells [facility] Hyaline Cast Absent Absent [facility] Bacteria Absent Absent [facility] Calcium Oxalate Present (A) Absent [facility] Bernadette [facility] Specimen Clean Voided Urine Performing Organization Address City/State/[facility] one Number [facility] [address] [facility], [place] [id number] [facility] [address] [facility] [place] [address], [place] [phone] [facility] * Urinalysis Reflex (02/04/2017 10:42 AM CDT) Appearance, Yellow [facility] Urine [facility] Glucose Urine Negative Negative mg/dL [facility] Bilirubin Urine Negative Negative [facility] Ketones Urine Negative Negative mg/dL [facility] Specific 1.015 1.001 - 1.030 [facility] [place], UA [facility] Hemoglobin Negative Negative [facility] Urine [facility] PH Urine 5.5 5.0 - 8.0 [facility] Protein Urine Negative Negative mg/dL [facility] Qual [facility] Urobilinogen Negative Negative EU/dL [facility] Urine [facility] Nitrite Urine Negative Negative [facility] Leukocyte Positive (A) Negative [facility] Esterase [facility] Specimen Clean Voided Urine Performing Organization Address City/State/Zipcode Ph one Number [facility] [address] [facility] [place] [place] [id number] [facility] [address] [facility] [place] [address], [place] [phone] [facility] * Lipase (02/04/2017 10:42 AM CDT) Lipase 107 23 - 300 IU/L [facility] Specimen Blood Performing Organization Address City/State/[facility] Ph one Number [facility] [address] [facility] [place] [address] [facility] [address] [address], [place] [phone] [facility] * Comprehensive Metabolic Panel (02/04/2017 10:42 AM CDT) Sodium 140 133 - 147 MEQ/L [facility] Potassium 4.3 3.5 - 5.3 MEQ/L [facility] Chloride 100 96 - 112 MEQ/L [facility] Carbon Dioxide 30 20 - 32 MEQ/L [facility] Anion Gap 10 5 - 17 [facility] Calcium 9.1 8.4 - 10.5 mg/dL [facility] Glucose 183 (H) 70 - 100 mg/dL [facility] Protein Total 7.9 6.0 - 8.2 g/dL [facility] Serum [facility] Albumin 4.1 3.5 - 5.0 g/dL [facility] Alkaline 94 42 - 140 IU/L [facility] Phosphatase [facility] Alanine 25 13 - 69 IU/L [facility] Aminotransferas [facility] Aspartate 33 15 - 46 IU/L [facility] Aminotransferas [facility] Bilirubin Total 0.4 0.2 - 1.3 mg/dL [facility] Blood Urea 17 7 - 26 mg/dL [facility] Nitrogen [facility] Creatinine 0.8 0.4 - 1.1 mg/dL [facility] eGFR Female AA 87 60 - 200 [facility] Comment: [facility] Chronic Kidney Disease less [facility] than 60 mL/min/1.73 sq.m Kidney failure less than 15 mL/min/1.73 sq.m eGFR Female 72 60 - 200 [facility] Non-AA Comment: [facility] Chronic Kidney Disease less [facility] than 60 mL/min/1.73 sq.m Kidney failure less than 15 mL/min/1.73 sq.m Specimen Blood Performing Organization Address City/State/Zipcode Ph one Number [facility] [address] [facility] [place] [address] [facility] [address] [place] [facility] [place] [address], [facility] * CBC and Diff (manual diff if necessary) (02/04/2017 10:42 AM CDT) WBC 8.93 4.00 - 11.00 TH/uL [facility] RBC 3.97 (L) 4.00 - 5.00 MIL/uL [facility] Eugenia [facility] Hemoglobin 12.7 12.0 - 15.0 g/dL [facility] Hematocrit 39 36 - 45 % [facility] MCV 99 80 - 99 fL [facility] MCH 32 27 - 34 pg [facility] MCHC 32 32 - 36 % [facility] RDW 14.6 (H) 9.0 - 14.5 % [facility] Platelet Count 152 140 - 400 TH/uL [facility] MPV 9.6 9.4 - 12.3 fL [facility] % Neutrophils 59 45 - 78 % [facility] %Lymphocytes 27 15 - 47 % [facility] %Monocytes 10 0 - 12 % [facility] %Eosinophils 4 0 - 7 % [facility] %Basophils 0 0 - 2 % [facility] # Granulocytes 5.25 1.7 - 6.8 TH/uL [facility] # Lymphocytes 2.44 1.0 - 3.3 TH/uL [facility] # Monocytes 0.87 0.2 - 0.9 TH/uL [facility] # Eosinophils 0.34 0.0 - 0.4 TH/uL [facility] # Basophils 0.03 0.0 - 0.1 TH/uL [facility] Specimen Blood Performing Organization Address City/State/Zipcode Ph one Number [facility] [address] [facility], [place] [id number] [facility] [address] [facility] [place] [address], [place] [phone] [facility] documented in this encounter Visit Diagnoses Diagnosis COPD exacerbation (HCC) Obstructive chronic bronchitis with exa cerbation Hypoxia Hypoxemia Epigastric pain Abdominal pain, epigastric Type 2 diabetes mellitus without compli cation (HCC) Morbid obesity due to excess calories ( HCC) Type 2 diabetes mellitus with hyperglyc emia, 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) Essential hypertension Unspecified essential hypertension Post-op pain Other acute postoperative pain Renal calculus Calculus of kidney documented in this encounter Administered Medications Action Date Dose Rate Site Medication Order MAR Action 02/04/2017 7:48 PM CDT 25 mg amitriptyline (ELAVIL) tablet 25 mg Given 25 mg, Oral, Nightly, First dose on Ju 02/04/17 at 2100 02/05/2017 8:44 AM CDT 2.5 mg amLODIPine (NORVASC) tablet 2.5 mg Given 2.5 mg, Oral, Daily, First dose on Ju 02/04/17 at 1612 02/05/2017 8:45 AM CDT 20 mg citalopram (CeleXA) tablet 20 mg Given 20 mg, Oral, Daily, First dose on Ju 02/04/17 at 1612 dextrose 10% (D10W) bolus 125-250 mL 125-250 mL, Intravenous, at 500-1,000 mL/hr, As needed, low blood sugar, Starting Ju 02/04/17 at 1559, Give if patient NPO and IV access already available. If no IV access give Glucagon SQ or IM in arm and turn patient on side. Recheck BG in 15 minutes. Repeat until glucose greater than 80., dextrose 50% (D50W) 50 % injection 25-5 0 mL 25-50 mL, Intravenous, As needed, low blood sugar, Starting Ju 17 at 1559, Give if patient NPO and IV access already available. If no IV access giv e Glucagon SQ or IM in arm and turn patient on side. Recheck BG in 15 minutes. Repeat until glucose greater than 80., dextrose 50% (D50W) syringe 25-50 mL 25-50 mL, Intravenous, As needed, low blood sugar, Starting Ju 6/15/17 at 1559, Give if patient NPO and IV access already available. If no IV access giv e Glucagon SQ or IM in arm and turn patient on side. Recheck BG in 15 minutes. Repeat until glucose greater than 80., 02/05/2017 8:44 AM CDT 100 mg doxycycline hyclate (VIBRA-TABS) tablet Given 100 mg 100 mg, Oral, 2 times daily, Indications: COPD, First dose on Ju 02/04/17 at 2100, Give with food to reduce GI upset, 100 mg Given 02/04/2017 7:48 PM CDT 02/04/2017 12:10 PM CDT 50 mcg fentaNYL (SUBLIMAZE) injection 50 mcg Given 50 mcg, Intravenous, Once, Ju 02/04/17 at 1133, For 1 dose, Administer over 2 minutes; max dose for IVP is 2 mcg/kg. Note: Limit does not apply to patients who may be tolerant to opioid therapy o r on continuous IV or PO opiate therapy., 02/05/2017 2:38 PM CDT 50 mcg fentaNYL (SUBLIMAZE) injection 50 mcg Given 50 mcg, Intravenous, Every 2 hours PRN, for moderate (4-6) or severe (7-10) pain, Starting Ju 02/04/17 at 1551, Administer over 2 minutes; max dose for IVP is 2 mcg/kg. Note: Limit does not apply to patients who may be tolerant t o opioid therapy or on continuous IV or P O opiate therapy., 50 mcg Given 02/05/2017 11:53 AM CDT 50 mcg Given 02/05/2017 8:45 AM CDT 02/04/2017 2:12 PM CDT 50 mcg fentaNYL (SUBLIMAZE) injection 50 mcg Given 50 mcg, Intravenous, Once, Ju 02/04/17 at 1411, For 1 dose, Administer over 2 minutes; max dose for IVP is 2 mcg/kg. Note: Limit does not apply to patients who may be tolerant to opioid therapy o r on continuous IV or PO opiate therapy., 02/05/2017 8:16 AM CDT 1 puff fluticasone-vilanterol (BREO ELLIPTA) Given 200-25 mcg/actuation inhaler 1 puff 1 puff, Inhalation, Daily, Indications: maintenance therapy for asthma, First dose on Wed02/04/17 at 1612, Rinse mout h with water after use if patient not on vent. , 02/05/2017 3:40 PM CDT 300 mg gabapentin (NEURONTIN) capsule 300 mg Given 300 mg, Oral, 3 times daily, First dose on Wed02/04/17 at 1612 300 mg Given 02/05/2017 8:44 AM CDT 300 mg Given 02/04/2017 7:48 PM CDT glucagon (GLUCAGEN) injection 1 mg 1 mg, Intramuscular, As needed, low blood sugar, low blood sugar, Starting Wed02/04/17 at 1559, If no IV access. May give IM or SQ in arm and turn patient on side., glucagon (GLUCAGEN) injection 1 mg 1 mg, Subcutaneous, As needed, low bloo d sugar, low blood sugar, Starting Ju 02/04/17 at 1559, If no IV access. May give IM or SQ in arm and turn patient o n side., 02/05/2017 3:40 PM CDT 5,000 Units Abdomina l Tissue heparin (porcine) 5,000 unit/mL Given injection 5,000 Units 5,000 Units, Subcutaneous, Every 8 hours, First dose on Wed02/04/17 at 155 8 5,000 Units Abdominal Tissue Given 02/05/2017 5:49 AM CDT 5,000 Units Abdominal Tissue Given 02/04/2017 9:52 PM CDT 02/04/2017 9:52 PM CDT 15 Units Abdomina l Tissue insulin glargine (LANTUS) injection 15 Given Units 15 Units, Subcutaneous, Nightly, First dose on Wed02/04/17 at 2100 02/05/2017 8:45 AM CDT 15 Units Abdomina l Tissue insulin glargine (LANTUS) injection 15 Given Units 15 Units, Subcutaneous, Once, Wed02/05/17 at 0815, For 1 dose 02/04/2017 9:52 PM CDT 5 Units Abdomina l Tissue insulin lispro (HumaLOG) injection 1-5 Given Units 1-5 Units, Subcutaneous, 4 times daily before meals and nightly, First dose on Wed02/04/17 at 1700, LEVEL 1 Give in addition to scheduled mealtime insulin per table Glucose Level (mg/dL) Dose <120 No Insulin 121-150 No Insulin 151-200 No Insulin 201-250 1 units 251-300 2 units 301-350 3 units 351-400 4 units >400 5 units Bedtime Correction - If glucose level [...] per table, 3 Units Abdominal Tissue Given 02/04/2017 4:28 PM CDT 02/05/2017 11:52 AM CDT 3 Units Right Ar m insulin lispro (HumaLOG) injection 2-7 Given Units 2-7 Units, Subcutaneous, 4 times daily before meals and nightly, First dose on Wed02/05/17 at 0830, LEVEL 3 Give in addition to scheduled [...] blood glucose check - dose per table, 4 Units Abdominal Tissue Given 02/05/2017 8:45 AM CDT 02/04/2017 12:05 PM CDT 100 mL iohexol (OMNIPAQUE) 350 mg iodine/mL Given injection 100 mL 100 mL, Intravenous, Once in imaging, contrast, Starting Ju 02/04/17 at 1203, For 1 dose 02/04/2017 12:09 PM CDT 3 mL ipratropium-albuterol (DUO-NEB) 0.5-3 Given mg/3 mL nebulizer solution 3 mL 3 mL, Inhalation, Once, Ju 02/04/17 at 1128, For 1 dose 02/05/2017 3:43 PM CDT 3 mL ipratropium-albuterol (DUO-NEB) 0.5-3 Given mg/3 mL nebulizer solution 3 mL 3 mL, Inhalation, 4 times daily, First dose on Wed02/04/17 at 1600 3 mL Given 02/05/2017 11:49 AM CDT 3 mL Given 02/05/2017 8:14 AM CDT 02/05/2017 8:45 AM CDT 30 mL magnesium hydroxide (MILK OF MAGNESIA) Given suspension 30 mL 30 mL, Oral, Once, Wed02/05/17 at 0815, For 1 dose 02/04/2017 12:10 PM CDT 125 mg methylPREDNISolone sodium succinate Given (Solu-MEDROL) injection 125 mg 125 mg, Intravenous, Once, Wed02/04/17 at 1129, For 1 dose 02/05/2017 8:44 AM CDT 100 mg metoprolol tartrate (LOPRESSOR) tablet Given 100 mg 100 mg, Oral, 2 times daily, First dose on Wed02/04/17 at 2100 100 mg Given 02/04/2017 7:48 PM CDT 02/05/2017 3:40 PM CDT 15 mg morphine (MSIR) tablet 15 mg Given 15 mg, Oral, Every 12 hours, First dose on Wed02/04/17 at 1612 15 mg Given 02/05/2017 4:20 AM CDT 15 mg Given 02/04/2017 4:28 PM CDT 02/04/2017 2:13 PM CDT 4 mg ondansetron (ZOFRAN) injection 4 mg Given 4 mg, Intravenous, Once, Wed02/04/17 at 1411, For 1 dose 02/04/2017 7:48 PM CDT 40 mg pravastatin (PRAVACHOL) tablet 40 mg Given 40 mg, Oral, Nightly, First dose on Wed02/04/17 at 2100 02/05/2017 8:44 AM CDT 40 mg predniSONE (DELTASONE) tablet 40 mg Given 40 mg, Oral, Daily, First dose on Wed02/04/17 at 1558, Give with food to reduce GI upset, 40 mg Given 02/04/2017 4:28 PM CDT documented in this encounter
--- OUTSIDE RECORDS SUMMARY | 2019-11-28 22:31 | XMS REPORT | Encounter Summary ---
Author Author [facility] Organization [facility] Address Unknown Phone Unavailable Care Team Providers Care Foam Rubber Fabricator Name Role Phone Ebony Sharp MD PCP Reason for Visit * Reason Comments Shortness of Breath x 3 weeks Encounter Details Care Team Description Date Type Department Ebony Carroll, KADEN [address] [facility] [address] [place] [address] COPD exacerbation (HCC) (Primary Dx) 02/04/2017 Office Visit [facility] (walk-in clinic) [address] [facility] [address] [place] [address] Social History Date Tobacco Use [...] Signs Reading Time Taken Comments Vital Sign 134/90 02/04/2017 8:21 AM CDT Blood Pressure 79 02/04/2017 8:21 AM CDT Pulse 36.8 C (98.2 F) 02/04/2017 8:21 AM CDT Temperature - - Respiratory Rate 95% 02/04/2017 8:49 AM CDT rechecked Oxygen Saturation - - Inhaled Oxygen Concentration 101.6 kg (224 lb) 02/04/2017 8:21 AM CDT Weight 157.5 cm (5' 2") 02/04/2017 8:21 AM CDT Height 40.97 02/04/2017 8:21 AM CDT Body Mass Index documented in this encounter Patient Instructions * Patient Instructions* Ebony Carroll, KADEN - 02/04/2017 8:36 AM CDT Take doxycycline every 12 hours for 10 days. Take with food and careful with sun exposure. Take entire course of antibiotic even if improvement or resolution of symptoms. Take prednisone two tablets every day for 5 days. Take with food. Continue with Breo daily. Careful with albuterol inhaler to not use more than ev patti 4-6 hours. If still using your inhaler every 4-6 hours, will need to follow- up to determine if a change in long-term controller medication is necessary. Discussed cerumen in left ear and can try debrox or let the shower hit the ear t o help with cerumen removal. Follow-up if no improvement or worsening of symptoms. COPD Flare You have had a flare-up of your COPD. COPD, or chronic obstructive pulmonary disease, is a common lung disease. It cau ses your airways to become irritated and narrower. This makes it harder for you to breathe. Emphysema and chronic bronchitis are both types of COPD. This is a c hronic condition, which means you always have it. Sometimes it gets worse. When this happens, it is called a flare-up. Symptoms of COPD People with COPD may have symptoms most of the time. In a flare-up, your symptom s get worse. These symptoms may mean you are having a flare-up: Shortness of breath, shallow or rapid breathing, or wheezing that gets worse Lung infection Cough that gets worse More mucus, thicker mucus or mucus of a different color Tiredness, decreased energy, or trouble doing your usual activities Fever Chest tightness Your symptoms dont get better even when you use your usual medicines, inha lers, and nebulizer Trouble talking You feel confused Causes of flare-ups Unfortunately, a flare-up can happen even though you did everything right, and y ou followed your doctors instructions. Some causes of flare-ups are: Smoking or secondhand smoke Colds, the flu, or respiratory infections Air pollution Sudden change in the weather Dust, irritating chemicals, or strong fumes Not taking your medicines as prescribed Home care Here are some things you can do at home to treat a flare-up: Try not to panic. This makes it harder to breathe, and keeps you from doing t he right things. Dont smoke or be around others who are smoking. Try to drink more fluids than usual during a flare-up, unless your doctor has told you not to because of heart and kidney problems. More fluids can help loos en the mucus. Use your inhalers and nebulizer, if you have one, as you have been told to. If you were given antibiotics, take them until they are used up or your docto r tells you to stop. Its important to finish the antibiotics, even though you feel better. This will make sure the infection has cleared. If you were given prednisone or another steroid, finish it even if you feel b chet. Preventing a flare-up Even though flare-ups happen, the best way to treat one is to prevent it before it starts. Here are some pointers: Dont smoke or be around others who are smoking. Take your medicines as you have been told. Talk with your doctor about getting a flu shot every year. Also find out if y ou need a pneumonia shot. If there is a weather advisory warning to stay indoors, try to stay inside wh en possible. Try to eat healthy and get plenty of sleep. Try to avoid things that usually set you off, like dust, chemical fumes, hair sprays, or strong perfumes. Follow-up care Follow up with your health care provider. If a culture was done, you will be told if your treatment needs to be changed. Y ou can call in 2 to 3 days, or as directed, for the results. If X-rays were done, and a radiologist had not seen them while you were there, teresa deal will be reviewed. You will be told if there is a change in the reading, dru benoit if it affects your treatment. Call 911 Call 911 if any of these occur: You have trouble breathing You feel confused or its difficult to wake you up You faint or lose consciousness You have a rapid heart rate You have new pain in your chest, arm, shoulder, neck or upper back When to seek medical advice Call your health care provider right awayifany of these occur: Wheezing or shortness of breath gets worse You need to use your inhalers more often than usual without relief Fever of 100.4F(38C) or higher, or as directed by your health care prov ider Coughing up lots of dark-colored or bloody sputum (mucus) Chest pain with each breath You do not start to get better within 24 hours Swelling or your ankles gets worse Dizziness or weakness [id number] [employer]. [address] [place] [address] 7. All rights reserved. This information is not intended as a substitute for pro fessional medical care. Always follow your healthcare professional's instruction s. documented in this encounter Progress Notes * Ebony Carroll NP - 02/04/2017 8:20 AM CDT Patient ID: Caren Patten is a 66 y.o. female. Subjective: Patient presents with Shortness of Breath (x 3 weeks) HISTORY OF PRESENT ILLNESS: The patient is a 66 y/o female presenting today for shortness of breath that diggs s been occurring for 3 weeks. She has a history of COPD. She currently is on Kylie o for controller and has been using albuterol inhaler and duo-nebulizer for her symptoms lately. She has been using her albuterol inhaler every 2-4 hours for th e past week. She is getting only mild relief from her inhalers. She has been fat igued and not been able to do much activity. She is having some sputum productio n that was green. She has had to use her CPAP again lately. Shortness of Breath This is a new problem. Episode onset: 3 weeks. The problem occurs constantly. The problem has been gradually worsening. Associated symptoms include ear pain, orthopnea, PND, rhinorrhea, a sore throat and wheezing (occasional). Pertinent n egatives include no chest pain, fever, headaches, leg swelling, rash, sputum pro duction or vomiting. The symptoms are aggravated by any activity, lying flat, UR Is and weather changes. The patient has no known risk factors for DVT/PE. Treatm ents tried: Daily Breo, albuterol every 2-4 hours, and duo-nebulizer treatments. The treatment provided mild relief. Her past medical history is significant for allergies and COPD. Problem List: Patient Active Problem List Diagnosis SNOMED CT(R) Type 2 diabetes mellitus without complication (HCC) TYPE 2 DIABETES MELLITUS COPD (chronic obstructive pulmonary disease) (HCC) CHRONIC OBSTRUCTIVE LUNG DISEASE Hyperlipidemia HYPERLIPIDEMIA Chronic pain CHRONIC PAIN Elevated MCV MCV - RAISED MATA (generalized anxiety disorder) GENERALIZED ANXIETY DISORDER Hair loss LOSS OF HAIR SASHA (obstructive sleep apnea) OBSTRUCTIVE SLEEP APNEA SYNDROME Iron deficiency IRON DEFICIENCY Goldberg-Ekbom syndrome RESTLESS LEGS Parasomnia PARASOMNIA IDDM (insulin dependent diabetes mellitus) ([facility]) DIABETES MELLITUS HTN (hypertension) HYPERTENSIVE DISORDER SASHA on CPAP OBSTRUCTIVE SLEEP APNEA SYNDROME Morbid obesity due to excess calories ([facility]) MORBID OBESITY Bleeding BLEEDING Post-op pain POSTOPERATIVE PAIN Acute bleeding BLEEDING Draining postoperative wound WOUND DISCHARGE Allergies: Allergies Allergen Reactions Lisinopril Anaphylaxis Metformin Anaphylaxis Sulfa (Sulfonamide Antibiotics) Hives Medications: Outpatient Encounter Prescriptions as of 02/04/2017 Medication Sig Dispense Refill albuterol (PROAIR HFA) [...] 10 0 each 0 BIOTIN ORAL Take by mouth. citalopram (CELEXA) 20 MG tablet Take 1 tablet (20 mg total) by mouth daily. 90 tablet 3 fluticasone-vilanterol (BREO ELLIPTA) 200-25 mcg/actuation INHALER Inhale [...] mouth every 12 (twelve) hours. oxyCODONE-acetaminophen (PERCOCET) 5-325 mg per tablet OXYGEN THERAPY as needed. simvastatin (ZOCOR) 20 MG tablet Take 1 tablet (20 mg total) by mouth nightl y. 90 tablet 3 [DISCONTINUED] BREO ELLIPTA 100-25 mcg/dose INHALER doxycycline hyclate (VIBRA-TABS) 100 MG tablet Take 1 tablet (100 mg total) by mouth 2 (two) times a day. 20 tablet 0 predniSONE (DELTASONE) 20 MG tablet Take 2 tablets (40 mg total) by mouth da edu. 10 tablet 0 [DISCONTINUED] ergocalciferol (ERGOCALCIFEROL) 50,000 unit capsule TK 1 C PO WEEKLY 0 [DISCONTINUED] omeprazole (PRILOSEC) 20 MG capsule No facility-administered encounter medications on file as of 02/04/2017. History: Past Medical History: Diagnosis Date Arthritis COPD [...] History Main Topics Smoking status: Former Smoker Quit date: 09/14/2009 Smokeless tobacco: Never Used Alcohol use No Drug use: No Sexual activity: No Other Topics Concern None Social History Narrative Ms. Patten has one daughter, whom she lives with. She does not have an advanced directive. Medical surrogate decision maker is her daughter, Frank Garcia Code status: Full Review of Systems Constitutional: Positive for chills and fatigue. Negative for fever. HENT: Positive for ear pain, postnasal drip, rhinorrhea, sinus pressure and sore throat. Respiratory: Positive for cough, shortness of breath and wheezing (occasional). Negative for sputum production and chest tightness. Cardiovascular: Positive for orthopnea and PND. Negative for chest pain, palpita tions and leg swelling. Gastrointestinal: Negative for vomiting. Skin: Negative for rash. Allergic/Immunologic: Positive for environmental allergies. Neurological: Negative for dizziness, light-headedness and headaches. Objective: BP 134/90 | Pulse 79 | Temp 36.8 C (98.2 F) (Oral) | Ht 1.575 m (5' 2") | Wt 101.6 kg (224 lb) | SpO2 95% Comment: rechecked | BMI 40.97 kg/m Physical Exam Constitutional: She is oriented to person, place, and time. She appears well-dev eloped and well-nourished. HENT: Right Ear: Hearing, tympanic membrane, external ear and ear canal normal. Left Ear: Hearing and external ear normal. Nose: Right sinus exhibits no maxillary sinus tenderness and no frontal sinus te nderness. Left sinus exhibits no maxillary sinus tenderness and no frontal sinus tenderness. Mouth/Throat: Uvula is midline, oropharynx is clear and moist and mucous membran es are normal. Cerumen in left ear and unable to visualize tympanic membrane. Neck: Neck supple. Cardiovascular: Normal rate, regular rhythm and normal heart sounds. No murmur heard. Pulmonary/Chest: Effort normal. No apnea and no tachypnea. No respiratory distre ss. She has decreased breath sounds in the right upper field, the right middle f ield, the right lower field, the left upper field and the left lower field. She has no wheezes. She has no rhonchi. She has no rales. Neurological: She is alert and oriented to person, place, and time. Skin: Skin is warm and dry. Psychiatric: She has a normal mood and affect. Nursing note and vitals reviewed. Assessment/Plan: Diagnoses and all orders for this visit: COPD exacerbation (HCC) - predniSONE (DELTASONE) 20 MG tablet; Take 2 tablets (40 mg total) by mouth daily. - doxycycline hyclate (VIBRA-TABS) 100 MG tablet; Take 1 tablet (100 mg tota l) by mouth 2 (two) times a day. Patient Instructions Take doxycycline every 12 hours for 10 days. Take with food and careful with sun exposure. Take entire course of antibiotic even if improvement or resolution of symptoms. Take prednisone two tablets every day for 5 days. Take with food. Continue with Breo daily. Careful with albuterol inhaler to not use more than ev patti 4-6 hours. If still using your inhaler every 4-6 hours, will need to follow- up to determine if a change in long-term controller medication is necessary. Discussed cerumen in left ear and can try debrox or let the shower hit the ear t o help with cerumen removal. Follow-up if no improvement or worsening of symptoms. COPD Flare You have had a flare-up of your COPD. COPD, or chronic obstructive pulmonary disease, is a common lung disease. It cau ses your airways to become irritated and narrower. This makes it harder for you to breathe. Emphysema and chronic bronchitis are both types of COPD. This is a c hronic condition, which means you always have it. Sometimes it gets worse. When this happens, it is called a flare-up. Symptoms of COPD People with COPD may have symptoms most of the time. In a flare-up, your symptom s get worse. These symptoms may mean you are having a flare-up: Shortness of breath, shallow or rapid breathing, or wheezing that gets worse Lung infection Cough that gets worse More mucus, thicker mucus or mucus of a different color Tiredness, decreased energy, or trouble doing your usual activities Fever Chest tightness Your symptoms dont get better even when you use your usual medicines, inha lers, and nebulizer Trouble talking You feel confused Causes of flare-ups Unfortunately, a flare-up can happen even though you did everything right, and y ou followed your doctors instructions. Some causes of flare-ups are: Smoking or secondhand smoke Colds, the flu, or respiratory infections Air pollution Sudden change in the weather Dust, irritating chemicals, or strong fumes Not taking your medicines as prescribed Home care Here are some things you can do at home to treat a flare-up: Try not to panic. This makes it harder to breathe, and keeps you from doing t he right things. Dont smoke or be around others who are smoking. Try to drink more fluids than usual during a flare-up, unless your doctor has told you not to because of heart and kidney problems. More fluids can help loos en the mucus. Use your inhalers and nebulizer, if you have one, as you have been told to. If you were given antibiotics, take them until they are used up or your docto r tells you to stop. Its important to finish the antibiotics, even though you feel better. This will make sure the infection has cleared. If you were given prednisone or another steroid, finish it even if you feel b chet. Preventing a flare-up Even though flare-ups happen, the best way to treat one is to prevent it before it starts. Here are some pointers: Dont smoke or be around others who are smoking. Take your medicines as you have been told. Talk with your doctor about getting a flu shot every year. Also find out if y ou need a pneumonia shot. If there is a weather advisory warning to stay indoors, try to stay inside wh en possible. Try to eat healthy and get plenty of sleep. Try to avoid things that usually set you off, like dust, chemical fumes, hair sprays, or strong perfumes. Follow-up care Follow up with your health care provider. If a culture was done, you will be told if your treatment needs to be changed. Y ou can call in 2 to 3 days, or as directed, for the results. If X-rays were done, and a radiologist had not seen them while you were there, teresa toyin will be reviewed. You will be told if there is a change in the reading, dru benoit if it affects your treatment. Call 911 Call 911 if any of these occur: You have trouble breathing You feel confused or its difficult to wake you up You faint or lose consciousness You have a rapid heart rate You have new pain in your chest, arm, shoulder, neck or upper back When to seek medical advice Call your health care provider right awayifany of these occur: Wheezing or shortness of breath gets worse You need to use your inhalers more often than usual without relief Fever of 100.4F(38C) or higher, or as directed by your health care prov ider Coughing up lots of dark-colored or bloody sputum (mucus) Chest pain with each breath You do not start to get better within 24 hours Swelling or your ankles gets worse Dizziness or weakness [id number] [employer]. [address] [place] [address], [place] [address] 7. All rights reserved. This information is not intended as a substitute for pro fessional medical care. Always follow your healthcare professional's instruction s. documented in this encounter Plan of Treatment Care Team Description [place] [address] [place] [address] [phone] 02/29/2020 Office Visit Urology documented as of this encounter Visit Diagnoses Diagnosis COPD exacerbation (HCC) Obstructive chronic bronchitis with exa cerbation documented in this encounter
--- OUTSIDE RECORDS SUMMARY | 2019-11-28 22:31 | XMS REPORT | Encounter Summary ---
Author Author [facility] Organization [facility] Address Unknown Phone Unavailable Care Team Providers Care Director Of Web Marketing Name Role Phone Ebony Sharp MD PCP Encounter Details Care Team Description Date Type Department Ebony Sharp MD [address] [facility] [address] [place] [address] [phone] 01/19/2017 Documentation [facility] (walk-in clinic) [address] [facility] [facility] [address] [place], [place] [id number] Social History Date Tobacco Use Types Packs/Day Years Used Quit: 09/14/2009 Former Smoker Smokeless Tobacco: Never Used Drinks/Week oz/Week Comments Alcohol Use No Sex Assigned at Date Recorded Female Industry Job Start Date Occupation Not on file Not on file Not on file Travel End Travel History Travel Start No recent travel history available. documented as of this encounter Plan of Treatment Care Team Description [place] [address] [place] [address] [phone] 02/29/2020 Office Visit Urology documented as of this encounter Visit Diagnoses Not on filedocumented in this encounter
--- OUTSIDE RECORDS SUMMARY | 2019-11-28 22:31 | XMS REPORT | Encounter Summary ---
Author Author [facility] Organization [facility] Address Unknown Phone Unavailable Care Team Providers Care Cocktail Server Name Role Phone Ebony Sharp MD PCP Encounter Details Care Team Description Date Type Department Adelaida Olivas MD [address] [facility] [address] [place], [place] [id number] 01/19/2017 Hist-Transcript Aide Orthopaedi c ion Encounter Specialists [address] [facility] [address] [place], [place] [id number] Social History Date Tobacco Use Types Packs/Day [...] encounter Progress Notes * Juarez Noble - 01/19/2017 4:51 PM CDT - History of Present Illness Presents today for evaluation of her left lower extremity. She has been using th e bone stimulator for approximately one week.She states since using the bone sti mulator has been flaring up her left lower leg. She uses the bone stimulator at night. Her left leg is sore during the day with her activity. Examination Physical examination reveals a pleasant 66-year-old woman who is able to invert and gorge her foot without any specific complaints. Her skin is otherwise intac t. She has a nice palpable dorsalis pedis pulse. There is no overt evidence of significant swelling. Impression OTHER SYNOVITIS AND TENOSYNOVITIS LEFT ANKLE AND FOOT ([id number]) LEFT ANKLE PRIMARY OSTEOARTHRITIS ([id number]) LEFT FOOT GANGLION ([id number]) Plan At this point, we did discuss continued bone stimulation. We will place her on long-term oral pain medicine. I will see her back in three weeks for reevaluati on. Family History Summary: Reviewed history Last on 12/24/2016 and no changes required:01/31/2017 No Known Family History - Entered On: [...] SIMVASTATIN 20 MG TABS (SIMVASTATIN) as directed VITAMIN D (ERGOCALCIFEROL) 31643 UNIT CAPS (ERGOCALCIFEROL) 99177 units once a w tyonek CYCLOBENZAPRINE HCL 10 MG TABS (CYCLOBENZAPRINE HCL) 1 tablet at bedtime LIDOCAINE HCL 3 % CREA (LIDOCAINE HCL) apply to right knee q8 prn pain PERCOCET 10-325 MG TABS (OXYCODONE-ACETAMINOPHEN) 1-2 PO Q 4-6 Hours PRN Pain MS CONTIN 15 MG CR-TABS (MORPHINE SULFATE) Take 1 tablet every 12 hours as neede d for pain Allergies: LISINOPRIL (LISINOPRIL) GLUCOPHAGE (METFORMIN HCL) SULFA (SULFADIAZINE) I have reviewed and concur with the medical, social and family histories collect ed and entered on my behalf, on 01/19/2017. -Adelaida Olivas MD, January 31, 2017 11:14 AM Prescriptions: PERCOCET 10-325 MG TABS (OXYCODONE-ACETAMINOPHEN) 1-2 PO Q 4-6 Hours PRN Pain # 90 x 0 Entered by: Kari Young Authorized by: Adelaida Olivas MD Signed by: Kari Young on 01/19/2017 Method used: Print then Give to Patient RxID: [id number] MS CONTIN 15 MG CR-TABS (MORPHINE SULFATE) Take 1 tablet every 12 hours as neede d for pain #56 x 0 Entered by: Kari Young Authorized by: Adelaida Olivas MD Signed by: Kari Young on 01/19/2017 Method used: Print then Give to Patient RxID: [id number] CYCLOBENZAPRINE HCL 10 MG TABS (CYCLOBENZAPRINE HCL) 1 tablet at bedtime #30 x 0 Entered by: Sharona Scott Authorized by: Adelaida Olivas MD Signed by: Kari Young on 01/19/2017 Method used: Print then Give to Patient RxID: [id number] Vital Signs Ht: 62 in. Wt: 236 lbs. T: 97.6 deg F. T site: tympanic BMI: 43.32 She was encourage to talk with her primary care provider about weight management . Radiographs: Three views, Ap, lateral and mortise radiographic views of the left ankle does n ot demonstrate any overt evidence of bony subluxation or hardware failure. I would like her to return in 4 weeks and obtain a weight bearing x-ray of their left ankle. Orders from current office visit: Ankle x-ray 3 views PQRS 128a PQRS 226NS PQRS 317na PQRS 130 Measure 109 * I,Sharona Scott, have scribed the history and exam for, and in the presence of Dr. Adelaida Olivas MD. I Dr. Adelaida Olivas MD have reviewed the scribed history and exam, no changes are required. Signed by Adelaida Olivas MD on January 19, 2017 at 4:31 PM Signed by Adelaida Olivas MD on January 27, 2017 at 8:44 AM X-Ray Report Three views, Ap, lateral and mortise radiographic views of the left ankle does n ot demonstrate any overt evidence of bony subluxation or hardware failure. documented in this encounter Plan of Treatment Care Team Description Date [place] [address] [address] [phone] 02/29/2020 Office Visit Urology documented as of this encounter Visit Diagnoses Not on filedocumented in this encounter Additional Health Concerns Resolved Time Infection Noted Time 04/19/2018 12:13 PM CDT Influenza 08/30/2017 10:13 AM EQUIPMENT SERVICES ASSOCIATE 08/30/2019 1:09 PM EQUIPMENT SERVICES ASSOCIATE Influenza - Rule Out 08/30/2019 11:32 AM EQUIPMENT SERVICES ASSOCIATE 09/17/2019 8:17 AM EQUIPMENT SERVICES ASSOCIATE RSV 08/31/2019 6:35 PM EQUIPMENT SERVICES ASSOCIATE documented as of this encounter
--- OUTSIDE RECORDS SUMMARY | 2019-11-28 22:31 | XMS REPORT | Encounter Summary ---
Author Author [facility] Organization [facility] Address Unknown Phone Unavailable Care Team Providers Care Hospital Pharmacy Technician Name Role Phone Ebony Sharp MD PCP Encounter Details Care Team Description Date Type Department Ebony Sharp MD [address] [facility] [address] [place] [address] [phone] 01/19/2017 Documentation [facility] (walk-in clinic) [address] [facility] [address] [place], [place] [id number] Social History Date Tobacco Use Types Packs/Day [...] Description Date [place] [address] [place] [address] [phone] 02/29/2020 Office Visit Urology documented as of this encounter Visit Diagnoses Not on filedocumented in this encounter
--- OUTSIDE RECORDS SUMMARY | 2019-11-28 22:31 | XMS REPORT | Encounter Summary ---
Author Author [facility] Organization [facility] Address Unknown Phone Unavailable Care Team Providers Care Slope Hoist Operator Name Role Phone Ebony Sharp MD PCP Reason for Visit * Reason Comments Hospital Follow-up TCM CALL Encounter Details Care Team Description Date Type Department Zee Perez RN Hospital Follow-up (TCM CALL ) 02/08/2017 Telephone [facility] (walk-in clinic) [address] [facility] [address] [place], [place] [id number] Social History Date Tobacco Use Types Packs/Day [...] encounter Miscellaneous Notes * Telephone Encounter - Zee Perez RN - 02/08/2017 8:59 AM CDT [facility] HOSPITAL FOLLOW UP / TRANSITIONAL CARE COORDINATION PATIENT NAME/DATE OF Caren Patten (1950) DATE OF LAST OFFICE VISIT: 02/04/17 Dr. Sharp FACILITY/ADMISSION DATE: [facility] 02/04/17 DISCHARGE DATE/DISPOSITION: 02/05/17 (Home or Self Care) DISCHARGE DIAGNOSIS: COPD Exacerbation HOSPITAL COURSE: PT was admitted to [facility] on 02/04/17. She was apparently seen in the ED earlier on day of admission and discharged with steroids and doxycycline. She took these to the pharmacy to be filled and then went at [employer] with her daughter. After eating most of her burrito, she bit into it and there was plastic so she stopped eating. Shortly after she had nausea and stomach crampin g and came to the ED where CT ab/pelvis was negative other than non obstructing L renal calculus. She's had no vomiting or diarrhea. She was noted to be hypox ic in ED with sats 89-90% on room air. She was admitted for copd exacerbation. Her ab pain is better but she thinks she needs to have a BM. She received stero ids and has had improvement of her sx. She is not wheezing. She is comfortable returning home at this point to continue her steroid taper. RELEVANT LAB/XRAY FINDING IN HOSPITAL: LABS: RBC 3.97, elevated blood sugars. Ct Abdomen Pelvis W Contrast Result Date: 02/04/2017 Lower pole nonobstructive left renal calculus described above. Surgical absence of gallbladder and uterus. No other significant or acute abdominal or pelvic process is identified Xr Chest 2 Views (pa And Lateral) Result Date: 02/04/2017 Left midlung zone linear opacities consistent with subsegmental atelectasis or linear fibrosis. No consolidation MEDICATION CHANGES AT DISCHARGE: START: insulin humalog 2-7 units 4 times daily before meals and nightly-see sliding scale. Med change: amlodipine 2.5mg daily, lantus 30 units subQ, prednisone 20mg take 4 0mg daily. ADDITIONAL NEEDS None (HH, PT/OT, MEDICAL EQUIP, ETC): CONSULTS AT DISCHARGE: Pulmonary CURRENT STATUS: fair MEDICATION RECONCILIATION: Medications reviewed in Epic. INSTRUCTIONS GIVEN: Pt states she is felling much better, denies SOB or chest pa in. Pt was busy and couldn't talk or go over medications. Pt would like appt mad e. appt scheduled for next week. Instructed to call with questions or concerns . Verbalized understanding. No further questions at time of call. ADDITIONAL NOTES: PCM PICKER TENDER HELPER: Zee Perez RN documented in this encounter Plan of Treatment Care Team Description Date [place] [address] [place] [address] [phone] 02/29/2020 Office Visit Urology documented as of this encounter Visit Diagnoses Not on filedocumented in this encounter
--- OUTSIDE RECORDS SUMMARY | 2019-11-28 22:31 | XMS REPORT | Encounter Summary ---
Author Author [facility] Organization [facility] Address Unknown Phone Unavailable Care Team Providers Care Cellophane Casting Machine Repairer Name Role Phone Ebony Sharp MD PCP Encounter Details Care Team Description Date Type Department Ebony Sharp MD [address] [facility] [address] [place] [address] [phone] 01/08/2017 Documentation [facility] (walk-in clinic) [address] [facility] [address] [place], [place] [id number] Social History Date Tobacco Use Types Packs/Day [...] Description Date [place] [address] [place] [address] [phone] 02/29/2020 Office Visit Urology documented as of this encounter Visit Diagnoses Not on filedocumented in this encounter
--- OUTSIDE RECORDS SUMMARY | 2019-11-28 22:31 | XMS REPORT | Encounter Summary ---
Author Author [facility] Organization [facility] Address Unknown Phone Unavailable Care Team Providers Care Mva Operator Name Role Phone Ebony Sharp MD PCP Encounter Details Care Team Description Date Type Department Adelaida Olivas MD [address] [facility] [address] [place] [address] [phone] 01/19/2017 Hist-Other [facility] [address] [place] [address] Social History Date Tobacco Use Types Packs/Day [...] Description Date [place] [address] [place] [address] [phone] 02/29/2020 Office Visit Urology documented as of this encounter Procedures Comments Procedure Name Priority Date/Time Associated Diag nosis XR ANKLE Routine 01/19/2017 4:05 PM CDT documented in this encounter Results * XR Ankle (01/19/2017 4:05 PM CDT) Specimen Performing Organization Address City/State/Zipcode Ph one Number LEVI documented in this encounter Visit Diagnoses Not on filedocumented in this encounter Additional Health Concerns Resolved Time Infection Noted Time 04/19/2018 12:13 PM CDT Influenza 08/30/2017 10:13 AM INGOT BUGGY OPERATOR documented as of this encounter
--- OUTSIDE RECORDS SUMMARY | 2019-11-28 22:31 | XMS REPORT | Encounter Summary ---
Author Author [facility] Organization [facility] Address Unknown Phone Unavailable Care Team Providers Care Parking Manager Name Role Phone Ebony Sharp MD PCP Reason for Visit * Reason Comments Follow-up eldon lft ankle [id number] [facility] TVX: Appt. Reminder (02/09/2017 07:01 PM) Phone Call - Message Delivered (N=Answered - Entire Message) Encounter Details Care Team Description Date Type Department Adelaida Olivas MD [address] [facility] [address] [place] [address] [phone] 02/11/2017 Hist[facility]Appointmen [facility] [address] [facility] [address] [place] [address] Social History Date Tobacco Use Types Packs/Day [...] Description Date [place] [address] [place] [address] [phone] 02/29/2020 Office Visit Urology documented as of this encounter Visit Diagnoses Not on filedocumented in this encounter Additional Health Concerns Resolved Time Infection Noted Time 04/19/2018 12:13 PM CDT Influenza 08/30/2017 10:13 AM WOOL MIXER documented as of this encounter
--- OUTSIDE RECORDS SUMMARY | 2019-11-28 22:31 | XMS REPORT | Encounter Summary ---
Author Author [facility] Organization [facility] Address Unknown Phone Unavailable Care Team Providers Care Email Designer Name Role Phone Ebony Sharp MD PCP Reason for Visit * Reason Comments Chest pain Mid-sternal chest pain that started around 1525 while pt was over at [facility]. Pain has been intermit tent, pain comes in waves. Pain radiates straight through to back. Juan sea present. Denies vomiting. States she got diaphoretic when it star lexis. Nothing makes better or worse. Denies cardiac history. Encounter Details Care Team Description Date Type Department Tarun Palmer MD [address] [place] [address] [phone] Chest pain, unspecified type (Primary Dx ); Anxiety 02/11/2017 Emergency [facility] [address] [place] [address] Social History Date Tobacco Use Types Packs/Day [...] Signs Reading Time Taken Comments Vital Sign 140/87 02/11/2017 3:51 PM CDT Blood Pressure 75 02/11/2017 4:25 PM CDT Pulse 36.6 C (97.9 F) 02/11/2017 3:51 PM CDT Temperature 15 02/11/2017 4:25 PM CDT Respiratory Rate 98% 02/11/2017 4:25 PM CDT Oxygen Saturation - - Inhaled Oxygen Concentration 101.6 kg (224 lb) 02/11/2017 3:51 PM CDT Weight 157.5 cm (5' 2") 02/11/2017 3:51 PM CDT Height 40.97 02/11/2017 3:51 PM CDT Body Mass Index documented in this encounter Discharge Instructions * Attachments The following attachments cannot be sent through Care Everywhere.* CHEST PAIN, NONCARDIAC (UPPER SORBIAN) documented in this encounter Medications at Time [...] (HCC) mouth 2 (two) times a day. 02/14/2016 06/24/2017 albuterol (PROAIR HFA) 90 Inhale [...] as of this encounter ED Notes * Janna Stone RN - 02/11/2017 5:38 PM CDT Pt left before being discharged. She did not have an IV. She did not receive d ischarge instructions or paperwork. She did not sign paperwork. * Tarun Palmer MD - 02/11/2017 4:38 PM CDT 02/11/2017 [facility] History Chief Complaint Patient presents with Chest pain Mid-sternal chest pain that started around 1525 while pt was over at [facility]. Pain has been intermittent, pain comes in waves. Pain radiates straight through to back. Nausea present. Denies vomiting. States she got diaphoretic when it started. Nothing makes better or worse. Denies cardiac history. The history is provided by the patient. Chest pain Pain location: Substernal area (pt reports had to bring daughter to ED due to c omplicatons from GB surgery-then went to ortho appt-found out might need further surgery on L ankle-under a lot of stress-developed chest pain-no cardiac histor y-thinks might be just a panic attack-no F/C/S) Pain quality: aching Pain radiates to: Does not radiate Pain severity: Moderate Onset quality: Sudden Progression: Resolved Chronicity: New Context: stress Relieved by: Nothing Worsened by: Nothing Ineffective treatments: None tried Associated symptoms: back pain and nausea Associated symptoms: no cough, no fever and no vomiting Risk factors: diabetes mellitus, high cholesterol, hypertension and obesity Risk factors: no coronary artery disease and no smoking (quit in 2009) Risk factors comment: Pt reports compliance with meds Past Medical History: Diagnosis Date Arthritis Chronic pain COPD (chronic obstructive pulmonary disease) (HCC) Diabetes [...] Constitutional: Negative for fever. Respiratory: Negative for cough. Cardiovascular: Positive for chest pain. Gastrointestinal: Positive for nausea. Negative for vomiting. Musculoskeletal: Positive for back pain. All other systems reviewed and are negative. Physical Exam BP 140/87 | Pulse 75 | Temp 36.6 C (97.9 F) (Oral) | Resp 15 | Ht 1.575 m (5' 2") | Wt 101.6 kg (224 lb) | SpO2 98% | BMI 40.97 kg/m Physical Exam Constitutional: She is oriented to person, place, and time. She appears well-dev eloped and well-nourished. No distress. HENT: Head: Normocephalic and atraumatic. Eyes: Conjunctivae and EOM are normal. Neck: Normal range of motion. Neck supple. Cardiovascular: Normal rate, regular rhythm and normal heart sounds. Pulmonary/Chest: Effort normal and breath sounds normal. No respiratory distress . She has no wheezes. She has no rales. Abdominal: Soft. Bowel sounds are normal. She exhibits no distension. There is n o tenderness. There is no rebound. Musculoskeletal: Normal range of motion. She exhibits no edema. Neurological: She is alert and oriented to person, place, and time. She has norm al reflexes. Skin: Skin is warm and dry. No rash noted. Psychiatric: She has a normal mood and affect. Her behavior is normal. Judgment and thought content normal. Nursing note and vitals reviewed. ED Course Procedures MDM Pulse ox was read by me and is within normal limits. Unremarkable ED workup. Discussed with patient risks,indications to return to [facility] ED, and importance of follow up. EKG: per my interpretation shows sinus rhythm, noraml axis, normal intervals wit h a rate of 75 . There are not any ST changes concerning for ischemia. LABS Results for orders placed or performed during the hospital encounter of 02/11/17 (from the past 24 hour(s)) Comprehensive Metabolic Panel Result Value Ref Range Sodium 139 133 - 147 MEQ/L Potassium 3.8 3.5 - 5.3 MEQ/L Chloride 100 96 - 112 MEQ/L Carbon Dioxide 32 20 - 32 MEQ/L Anion Gap 8 5 - 17 Calcium 8.8 8.4 - 10.5 mg/dL Glucose 220 (H) 70 - 100 mg/dL Protein Total Serum 7.5 6.0 - 8.2 g/dL Albumin 4.0 3.5 - 5.0 g/dL Alkaline Phosphatase 105 42 - 140 IU/L Alanine Aminotransferase 43 13 - 69 IU/L Aspartate Aminotransferase 40 15 - 46 IU/L Bilirubin Total 0.4 0.2 - 1.3 mg/dL Blood Urea Nitrogen 19 7 - 26 mg/dL Creatinine 0.7 0.4 - 1.1 mg/dL GFR Female AA 101 60 - 200 GFR Female Non-AA 84 60 - 200 CBC and Diff (manual diff if necessary) Result Value Ref Range WBC 10.87 4.00 - 11.00 TH/uL RBC 4.23 4.00 - 5.00 MIL/uL Hemoglobin 13.4 12.0 - 15.0 g/dL Hematocrit 42 36 - 45 % MCV 100 (H) 80 - 99 fL MCH 32 27 - 34 pg MCHC 32 32 - 36 % RDW 15.1 (H) 9.0 - 14.5 % Platelet Count 195 140 - 400 TH/uL MPV 9.9 9.4 - 12.3 fL %Segmented Neutrophils 60 45 - 78 % %Lymphocytes 30 15 - 47 % %Monocytes 8 0 - 12 % %Eosinophils 2 0 - 7 % %Basophils 0 0 - 2 % # Granulocytes 6.49 1.7 - 6.8 TH/uL # Lymphocytes 3.23 1.0 - 3.3 TH/uL # Monocytes 0.89 0.2 - 0.9 TH/uL # Eosinophils 0.23 0.0 - 0.4 TH/uL # Basophils 0.03 0.0 - 0.1 TH/uL Prothrombin Time/INR - ONLY if patient is on Warfarin Result Value Ref Range Protime 12.2 11.4 - 15.0 sec INR 0.9 0.8 - 1.2 Troponin 0 hr Result Value Ref Range Troponin <0.01 0.00 - 0.03 ng/mL RADIOLOGY XR Chest single view frontal Final Result No acute cardiopulmonary process. READING SITE: [facility] persistent L linear opacity in lung-unchange compared to 1 week ago withno evide nce of consolidation-interpreted by me DIAGNOSIS Problem List Items Addressed This Visit None Visit Diagnoses Chest pain, unspecified type - Primary Anxiety FOLLOW UP Ebony Sharp MD [address] [facility] [address] [place] [address] As needed, If symptoms worsen Discussed with the patient./family/guardian the plan and all questioned fully an swered. Return precautions instructed. ED Course ED Clinical Impression 1. Chest pain, unspecified type 2. Anxiety Tarun Palmer MD 02/11/17 1721 Tarun Palmer MD 02/11/17 [id number] * Janna Stone, RN - 02/11/2017 4:25 PM CDT Oxygen saturation 90% on room air. Placed on 2L of oxygen, sats now 98%. * Janna Stone RN - 02/11/2017 3:57 PM CDT She was given 324mg ASA by EMS. Her blood sugar per ems was 243. * Janna Stone RN - 02/11/2017 3:55 PM CDT Pt denies shortness of breath or dizziness. She was walking to check out at [facility] when pain started. It was 10/10 pain when it started, it has subsi ded some. She had a similar experience a few years ago and had cardiac workup a nd it was heartburn. * Ebony Stearns RN - 02/11/2017 3:45 PM CDT Bed: [facility] Expected date: Expected time: Means of arrival: Comments: LSFD documented in this encounter Plan of Treatment Care Team Description Date [place] [address] [place] [address] [phone] 02/29/2020 Office Visit Urology documented as of this encounter Procedures Comments Procedure Name Priority Date/Time Associated Diag nosis XR CHEST SINGLE VIEW STAT 02/11/2017 FRONTAL 4:25 PM CDT TROPONIN STAT 02/11/2017 4:25 PM CDT PROTHROMBIN TIME/INR STAT 02/11/2017 4:25 PM CDT COMPREHENSIVE METABOLIC STAT 02/11/2017 PANEL 4:25 PM CDT CBC AND DIFF (MANUAL DIFF STAT 02/11/2017 IF NECESSARY) 4:25 PM CDT ECG STAT 02/11/2017 3:44 PM CDT documented in this encounter Results * XR Chest single view frontal (02/11/2017 4:25 PM CDT) Specimen Impressions Performed At No acute cardiopulmonary process. LEVI READING SITE: [facility] Narrative Performed At Patient: ISIAH BENÍTEZ Sex#: Paulina # [id number] Jose#: [id number] Location: [facility] [place] SED-16 Procedure Requested: [id number] XR CHEST SINGLE VIEW FRONTAL Reason for Exam: Chest Pain Exam Ordered: 02/11/2017 15 57 Exam Date/Time: 02/11/2017 162 5 Begin exam date/time: 02/11/2017 160 4 XR CHEST SINGLE VIEW FRONTAL INDICATION: Chest Pain COMPARISON STUDY: 02/04/2017. FINDINGS: Lungs: Lingular linear subsegmental ate lectasis or scarring. No consolidation. Pleura: No pleural effusion or pneumoth orax. Heart and Mediastinum: The cardiomedias tinal silhouette and great vessels are stable. Procedure Note Interface, Rad Results In - 02/11/2017 5:37 PM CDT Patient: ISIAH BENÍTEZ Sex#: F # [id number] Jose#: [id number] Location: SED-16 Procedure Requested: [id number] XR CHEST SINGLE VIEW FRONTAL Reason for Exam: Chest Pain Exam Ordered: 02/11/2017 1557 Exam Date/Time: 02/11/2017 1625 Begin exam date/time: 02/11/2017 1604 XR CHEST SINGLE VIEW FRONTAL INDICATION: Chest Pain COMPARISON STUDY: 02/04/2017. FINDINGS: Lungs: Lingular linear subsegmental atelectasis or scarring. No consolidation. Pleura: No pleural effusion or pneumothorax. Heart and Mediastinum: The cardiomediastinal silhouette and great vessels are stable. IMPRESSION No acute cardiopulmonary process. READING SITE: [facility] Performing Organization Address City/State/Zipcode Ph one Number [place] * Troponin 0 hr (02/11/2017 4:25 PM CDT) Troponin <0.01 0.00 - 0.03 ng/mL [facility] Comment: [facility] Troponin Value [facility] Interpretation 0.00 - 0.03 Healthy 0.04 - 0.12 Increased Cardiac Risk >0.12 Myocardial Infarction Troponin may not become elevated until 6 to 8 hours after onset of symptoms. Specimen Blood Performing Organization Address City/State/[facility] Ph one Number [facility] [address] [facility] [place] [id number] [facility] [address] [place] [address], [facility] * Prothrombin Time/INR - ONLY if patient is on Warfarin (02/11/2017 4:25 PM CDT) Protime 12.2 11.4 - 15.0 sec [facility] INR 0.9 0.8 - 1.2 [facility] Specimen Blood Performing Organization Address City/[facility] one Number [facility] [address] [place] [place] [address] [facility] [address] [place] [address], [place] [phone] [facility] * CBC and Diff (manual diff if necessary) (02/11/2017 4:25 PM CDT) WBC 10.87 4.00 - 11.00 TH/uL [facility] RBC 4.23 4.00 - 5.00 MIL/uL [facility] Hemoglobin 13.4 12.0 - 15.0 g/dL [facility] Hematocrit 42 36 - 45 % [facility] MCV 100 (H) 80 - 99 fL [facility] MCH 32 27 - 34 pg [facility] MCHC 32 32 - 36 % [facility] RDW 15.1 (H) 9.0 - 14.5 % [facility] Platelet Count 195 140 - 400 TH/uL [facility] MPV 9.9 9.4 - 12.3 fL [facility] % Neutrophils 60 45 - 78 % [facility] %Lymphocytes 30 15 - 47 % [facility] %Monocytes 8 0 - 12 % [facility] %Eosinophils 2 0 - 7 % [facility] %Basophils 0 0 - 2 % [facility] # Granulocytes 6.49 1.7 - 6.8 TH/uL [facility] # Lymphocytes 3.23 1.0 - 3.3 TH/uL [facility] # Monocytes 0.89 0.2 - 0.9 TH/uL [facility] # Eosinophils 0.23 0.0 - 0.4 TH/uL [facility] # Basophils 0.03 0.0 - 0.1 TH/uL [facility] Specimen Blood Performing Organization Address City/State/[facility] Ph one Number [facility] [address] [facility], [place] [id number] [facility] [address] [place] [place] [address], [facility] * Comprehensive Metabolic Panel (02/11/2017 4:25 PM CDT) [facility] Signature Sodium 139 133 - 147 MEQ/L [facility] Potassium 3.8 3.5 - 5.3 MEQ/L [facility] Chloride 100 96 - 112 MEQ/L [facility] Carbon Dioxide 32 20 - 32 MEQ/L [facility] Anion Gap 8 5 - 17 [facility] Calcium 8.8 8.4 - 10.5 mg/dL [facility] Glucose 220 (H) 70 - 100 mg/dL [facility] Protein Total 7.5 6.0 - 8.2 g/dL [facility] Serum [facility] Albumin 4.0 3.5 - 5.0 g/dL [facility] Alkaline 105 42 - 140 IU/L [facility] Phosphatase [facility] Alanine 43 13 - 69 IU/L [facility] Aminotransferas [facility] Aspartate 40 15 - 46 IU/L [facility] Aminotransferas [facility] e [facility] Bilirubin Total 0.4 0.2 - 1.3 mg/dL [facility] Blood Urea 19 7 - 26 mg/dL [facility] Nitrogen [facility] Creatinine 0.7 0.4 - 1.1 mg/dL [facility] eGFR Female AA 101 60 - 200 [facility] Comment: [facility] Chronic Kidney Disease less [facility] than 60 mL/min/1.73 sq.m Kidney failure less than 15 mL/min/1.73 sq.m eGFR Female 84 60 - 200 [facility] Non-AA Comment: [facility] Chronic Kidney Disease less [facility] than 60 mL/min/1.73 sq.m Kidney failure less than 15 mL/min/1.73 sq.m Specimen Blood Performing Organization Address City/State/Zipcode Ph one Number [facility] [address] [facility] [place] [address] [facility] [address] [facility] [place] [address], [place] [phone] [facility] * Electrocardiogram (ECG) (02/11/2017 3:44 PM CDT) Specimen Narrative Performed At [facility] ED Test Date: 2017-02-11 Pat Name: ISIAHYOSSI BENÍTEZ Department: ERS Room: SED Gender: Female Neck Cutter: [id number] : 1950 Requested By: TARUN PALMER Order Number: [id number] Reading MD: Measurements Intervals [place] Rate: 75 P: 48 [place]: 144 QRS: 53 QRSD: 106 T: 38 QT: 400 QTc: 447 Interpretive Statements SINUS RHYTHM Compared to ECG 02/04/2017 12:20:16 No significant changes Procedure Note Interface, External Ris In - 02/11/2017 3:47 PM CDT [facility] ED Test Date: 2017-02-11 Pat Name: ISIAH BENÍTEZ Department: ERS Room: SED Gender: Female Neck Cutter: [id number] : 1950 Requested By: TARUN PALMER Order Number: [id number] Reading MD: Measurements Intervals [place] Rate: 75 P: 48 NJ: 144 QRS: 53 QRSD: 106 T: 38 QT: 400 QTc: 447 Interpretive Statements SINUS RHYTHM Compared to ECG 02/04/2017 12:20:16 No significant changes Performing Organization Address City/State/Zipcode Ph one Number [facility] documented in this encounter Visit Diagnoses Diagnosis Chest pain, unspecified type Anxiety Anxiety state, unspecified documented in this encounter
--- OUTSIDE RECORDS SUMMARY | 2019-11-28 22:31 | XMS REPORT | Encounter Summary ---
Author Author [facility] Organization [facility] Address Unknown Phone Unavailable Care Team Providers Care Capacitor Tester Name Role Phone Ebony Sharp MD PCP Encounter Details Care Team Description Date Type Department Adelaida Olivas MD [address] [facility] [address] [place], [place] [id number] 02/11/2017 Hist-Transcript [facility] En[facility] Specialists [address] [facility] [address] [place], [place] [id number] Social History Date Tobacco Use Types Packs/Day [...] encounter Progress Notes * Juarez Noble - 02/11/2017 3:15 PM CDT - History of Present Illness Presents today for evaluation of her left lower extremity. She has been using th e bone stimulator. She is sitll unalbe to do long distances walking and long sta nding. She gets high swelling with pain with long period on her left foot. Examination Physical examination reveals a 66-year-old woman with continued tenderness to pa lpation throughout the course of her tibiotalar joint. Her skin is otherwise in tact. There is no overt evidence of delayed wound healing. She is otherwise ab le to plantar flex and dorsiflex her midfoot. 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 Plan At this point, we will plan to allow her to be weightbearing as tolerated. I wi ll see her back in three weeks for reevaluation. She will continue with her bon e stimulator. Past Medical History High Blood Pressure Arthritis [...] ed and entered on my behalf, on 02/11/2017. -Adelaida Olivas MD, February 11, 2017 2:54 PM Prescriptions: PERCOCET 10-325 MG TABS (OXYCODONE-ACETAMINOPHEN) 1-2 PO Q 4-6 Hours PRN Pain # 90 x 0 Entered by: Sharona Scott Authorized by: Adelaida Olivas MD Signed by: Sharona Scott on 02/11/2017 Method used: Print then Give to Patient RxID: [id number] MS CONTIN 15 MG CR-TABS (MORPHINE SULFATE) Take 1 tablet every 12 hours as neede d for pain #56 x 0 Entered by: Sharona Scott Authorized by: Adelaida Olivas MD Signed by: Sharona Scott on 02/11/2017 Method used: Print then Give to Patient RxID: [id number] Vital Signs Ht: 62 in. Wt: 236 lbs. T: 97.0 deg F. T site: tympanic BMI: 43.32 She was encourage to talk with her primary care provider about weight management . Radiographs: Three views, Ap, lateral and mortise radiographic views of the left ankle demons trates tibiotalar fusion with some yaneth-screw lucency. I would like her to return in 4-5 weeks of their left ankle. Orders from current office visit: Ankle x-ray 3 views PQRS 128a PQRS 226NS PQRS 317na PQRS 130 Measure 109 Diabetic pulse exam Diabetic sensory exam CT Ankle w/o contrast * I,Sharona Scott, have scribed the history and exam for, and in the presence of Dr. Adelaida Olivas MD. I Dr. Adelaida Olivas MD have reviewed the scribed history and exam, no changes are required. Signed by Adelaida Olivas MD on February 11, 2017 at 2:51 PM Signed by Adelaida Olivas MD on March 05, 2017 at 7:07 AM X-Ray Report Three views, Ap, lateral and mortise radiographic views of the left ankle demons trates tibiotalar fusion with some yaneth-screw lucency. documented in this encounter Plan of Treatment Care Team Description [place] [address] [place] [address] [phone] 02/29/2020 Office Visit Urology documented as of this encounter Visit Diagnoses Not on filedocumented in this encounter Additional Health Concerns Resolved Time Infection Noted Time 04/19/2018 12:13 PM CDT Influenza 08/30/2017 10:13 AM HIGH SCHOOL TEACHER 08/30/2019 1:09 PM HIGH SCHOOL TEACHER Influenza - Rule Out 08/30/2019 11:32 AM HIGH SCHOOL TEACHER 09/17/2019 8:17 AM HIGH SCHOOL TEACHER RSV 08/31/2019 6:35 PM HIGH SCHOOL TEACHER documented as of this encounter
--- OUTSIDE RECORDS SUMMARY | 2019-11-28 22:31 | XMS REPORT | Encounter Summary ---
Author Author [facility] Organization [facility] Address Unknown Phone Unavailable Care Team Providers Care Lab Support Tech Name Role Phone Ebony Sharp MD PCP Reason for Visit * Reason Comments Follow-up TIM lft ankle 01/12/2017 c mlTVX: Appt. Reminder (01/15/2017 06:28 PM) Phone Call - Responded "Yes" (Y=Answere d - Yes) Encounter Details Care Team Description Date Type Department Adelaida Olivas MD [address] [facility] [address] [place] [address] [phone] 01/19/2017 Hist[facility]Appointmen [facility] [address] [facility] [address] [place] [address] Social History Date Tobacco Use Types Packs/Day [...] Description Date [place] [address] [place] [address] [phone] 02/29/2020 Office Visit Urology documented as of this encounter Visit Diagnoses Not on filedocumented in this encounter Additional Health Concerns Resolved Time Infection Noted Time 04/19/2018 12:13 PM CDT Influenza 08/30/2017 10:13 AM FINE GRADER documented as of this encounter
--- OUTSIDE RECORDS SUMMARY | 2019-11-28 22:32 | XMS REPORT | Encounter Summary ---
Author Author [facility] Organization [facility] Address Unknown Phone Unavailable Care Team Providers Care Torch Operator Name Role Phone Ebony Sharp MD PCP Encounter Details Care Team Description Date Type Department Wyatt Santacruz MD [address] [facility] [address] [place] [address] [phone] 11/02/2016 Hist-Other [facility] [address] [place] [address] Social History Date Tobacco Use Types Packs/Day [...] Description Date [place] [address] [place] [address] [phone] 02/29/2020 Office Visit Urology documented as of this encounter Procedures Comments Procedure Name Priority Date/Time Associated Diag nosis XR KNEE RIGHT Routine 11/02/2016 3:11 PM CDT documented in this encounter Results * XR Knee right (11/02/2016 3:11 PM CDT) Specimen Performing Organization Address City/State/[place] Ph one Number [facility]EVI documented in this encounter Visit Diagnoses Not on filedocumented in this encounter Additional Health Concerns Resolved Time Infection Noted Time 04/19/2018 12:13 PM CDT Influenza 08/30/2017 10:13 AM ENVIRONMENTAL PROTECTION OFFICER documented as of this encounter
--- OUTSIDE RECORDS SUMMARY | 2019-11-28 22:32 | XMS REPORT | Encounter Summary ---
Author Author [facility] Organization [facility] Address Unknown Phone Unavailable Care Team Providers Care Choir Teacher Name Role Phone Ebony Sharp MD PCP Reason for Visit * Reason Comments Follow-up Margot rt knee(ok'd per bk)/ 11/20/16 ndTVX: Appt. Reminder (12/02/2016 06:32 PM) Phone Call - Message Delivered (X=A nswering Machine) Encounter Details Care Team Description Date Type Department Wyatt Santacruz MD [address] [facility] [address] [place] [address] [phone] 12/04/2016 Hist-Appointmen [facility] [address] [facility] [address] [place] [address] Social History Date Tobacco Use Types Packs/Day [...] Description Date [place] [address] [place] [address] [phone] 02/29/2020 Office Visit Urology documented as of this encounter Visit Diagnoses Not on filedocumented in this encounter Additional Health Concerns Resolved Time Infection Noted Time 04/19/2018 12:13 PM CDT Influenza 08/30/2017 10:13 AM SUPERVISOR INSPECTION DEPARTMENT documented as of this encounter
--- OUTSIDE RECORDS SUMMARY | 2019-11-28 22:32 | XMS REPORT | Encounter Summary ---
Author Author [facility] Organization [facility] Address Unknown Phone Unavailable Care Team Providers Care Solidworks Designer Name Role Phone Ebony Sharp MD PCP Reason for Visit * Reason Comments Follow-up Margot lt 12-03-16 HKW TVX: Appt. Reminder (12/22/2016 06:44 PM) Phone Call - Responded "Yes" (Y=Answered - Ye s) Encounter Details Care Team Description Date Type Department Adelaida Olivas MD [address] [facility] [address] [place] [address] [phone] 12/24/2016 Hist[facility]Appointmen [facility] [address] [facility] [address] [place] [address] Social History Date Tobacco Use Types Packs/Day [...] Description Date [place] [address] [place] [address] [phone] 02/29/2020 Office Visit Urology documented as of this encounter Visit Diagnoses Not on filedocumented in this encounter Additional Health Concerns Resolved Time Infection Noted Time 04/19/2018 12:13 PM CDT Influenza 08/30/2017 10:13 AM TAX MAP TECHNICIAN documented as of this encounter
--- OUTSIDE RECORDS SUMMARY | 2019-11-28 22:32 | XMS REPORT | Encounter Summary ---
Author Author [facility] Organization [facility] Address Unknown Phone Unavailable Care Team Providers Care Brand Sales Consultant Name Role Phone Ebony Sharp MD PCP Reason for Visit * Reason Comments Follow-up eldon lft ankle 11/19/16kswTV X: Appt. Reminder (11/20/2016 06:56 PM) Phone Call - Message Delivered (X=Answering [place]) Encounter Details Care Team Description Date Type Department Adelaida Olivas MD [address] [facility] [address] [place] [address] [phone] 11/24/2016 Hist-Appointmen [facility] [address] [facility] [address] [place] [address] Social History Date Tobacco Use Types Packs/Day [...] Description Date [place] [address] [place] [address] [phone] 02/29/2020 Office Visit Urology documented as of this encounter Visit Diagnoses Not on filedocumented in this encounter Additional Health Concerns Resolved Time Infection Noted Time 04/19/2018 12:13 PM CDT Influenza 08/30/2017 10:13 AM CULTURAL CENTRE MANAGER documented as of this encounter
--- OUTSIDE RECORDS SUMMARY | 2019-11-28 22:32 | XMS REPORT | Encounter Summary ---
Author Author [facility] Organization [facility] Address Unknown Phone Unavailable Care Team Providers Care Traveling Secretary Name Role Phone Ebony Sharp MD PCP Encounter Details Care Team Description Date Type Department Tonya Hernandez APRN No Forwarding Address UTI symptoms 11/23/2016 Lab [facility] Prim[facility] Care - [facility] [place] [address] [facility] [address] [place] [address] Social History Date Tobacco Use Types Packs/Day [...] Description Date [place] [address] [place] [address] [phone] 02/29/2020 Office Visit Urology documented as of this encounter Procedures Comments Procedure Name Priority Date/Time Associated Diag nosis CULTURE, URINE Routine 11/23/2016 UTI symptoms 12:00 PM CDT documented in this encounter Results * UA Culture (11/23/2016 12:00 PM CDT) Isolate 1 >100,000 Cfu/ml (A) [facility] Isolate 1 Escherichia coli (A) [facility] Specimen Urine Antibiotic Method Susceptibility Organism AMPICILLIN >=32: Resistant Escherichia coli CEFAZOLIN. <=4: Sensitive Escherichia coli CEFTRIAXONE <=1: Sensitive Escherichia coli CEFEPIME <=1: Sensitive Escherichia coli MEROPENEM <=0.25: Sensitive Escherichia coli GENTAMICIN <=1: Sensitive Escherichia coli CIPROFLOXACIN. <=0.25: Sensitive Escherichia coli NITROFURANTOIN <=16: Sensitive Escherichia coli SEPTRA/BACTRIM <=20: Sensitive Escherichia coli Performing Organization Address City/State/Zipcode Ph one Number [address] [address] LABORATORIES documented in this encounter Visit Diagnoses Diagnosis UTI symptoms documented in this encounter
--- OUTSIDE RECORDS SUMMARY | 2019-11-28 22:32 | XMS REPORT | Encounter Summary ---
Author Author [facility] Organization [facility] Address Unknown Phone Unavailable Care Team Providers Care Manager Employee Relations Name Role Phone Ebony Sharp MD PCP Encounter Details Care Team Description Date Type Department Adelaiad Olivas MD [address] [facility] [address] [place] [address] [phone] 11/24/2016 Hist-Other [facility] [address] [place] [address] Social History Date Tobacco Use Types Packs/Day [...] Description Date [place] [address] [place] [address] [phone] 02/29/2020 Office Visit Urology documented as of this encounter Procedures Comments Procedure Name Priority Date/Time Associated Diag nosis XR ANKLE Routine 11/24/2016 2:05 PM CDT documented in this encounter Results * XR Ankle (11/24/2016 2:05 PM CDT) Specimen Performing Organization Address City/State/Zipcode Ph one Number [place] documented in this encounter Visit Diagnoses Not on filedocumented in this encounter Additional Health Concerns Resolved Time Infection Noted Time 04/19/2018 12:13 PM CDT Influenza 08/30/2017 10:13 AM SHODDY MILL WORKER documented as of this encounter
--- OUTSIDE RECORDS SUMMARY | 2019-11-28 22:32 | XMS REPORT | Encounter Summary ---
Author Author [facility] Organization [facility] Address Unknown Phone Unavailable Care Team Providers Care Biochemistry Technician Name Role Phone Ebony Sharp MD PCP Encounter Details Care Team Description Date Type Mendy Mckenzie PA-C [address] [address] [phone] 11/02/2016 Hist-Other [facility] [address] [place] [address] Social History Date Tobacco Use Types Packs/Day [...] Description Date [place] [address] [place] [address] [phone] 02/29/2020 Office Visit Urology documented as of this encounter Procedures Comments Procedure Name Priority Date/Time Associated Diag nosis XR ANKLE LEFT Routine 11/02/2016 1:46 PM CDT documented in this encounter Results * XR Ankle left (11/02/2016 1:46 PM CDT) Specimen Performing Organization Address City/State/Zipcode Ph one Number [place] documented in this encounter Visit Diagnoses Not on filedocumented in this encounter Additional Health Concerns Resolved Time Infection Noted Time 04/19/2018 12:13 PM CDT Influenza 08/30/2017 10:13 AM CERTIFIED CAREGIVER documented as of this encounter
--- OUTSIDE RECORDS SUMMARY | 2019-11-28 22:32 | XMS REPORT | Encounter Summary ---
Author Author [facility] Organization [facility] Address Unknown Phone Unavailable Care Team Providers Care Injection Molder Name Role Phone Ebony Sharp MD PCP Encounter Details Care Team Description Date Type Department Adelaida Olivas MD [address] [facility] [address] [place], [place] [address] 12/04/2016 [facility] [address] [facility] [address] [place], [place] [address] Social History Date Tobacco Use Types Packs/Day [...] Clinic Note - Adelaida Olivas MD - 12/04/2016 9:59 AM CDT Follow-up for Phone Call Follow-up Details: Received prior authorization request from [facility] for Percocet 10. Started on [facility] - [phone] Answered all questions and submitted to plan. Follow-up by: Alec Jimenez on December 04, 2016 10:00 AM Additional Follow-up for Phone Call Additional Follow-up Details: Received notification from insurance that medicati on was already covered by plan. Called pharmacy and patient has already picked u p this medication. Additional Follow-up by: Alec Jimenez on December 08, 2016 11:27 AM documented in this encounter Plan of Treatment Care Team Description [place] [address] [place] [address] [phone] 02/29/2020 Office Visit Urology documented as of this encounter Visit Diagnoses Not on filedocumented in this encounter Additional Health Concerns Resolved Time Infection Noted Time 04/19/2018 12:13 PM CDT Influenza 08/30/2017 10:13 AM BRAND SALES MANAGER 08/30/2019 1:09 PM BRAND SALES MANAGER Influenza - Rule Out 08/30/2019 11:32 AM BRAND SALES MANAGER 09/17/2019 8:17 AM BRAND SALES MANAGER RSV 08/31/2019 6:35 PM BRAND SALES MANAGER documented as of this encounter
--- OUTSIDE RECORDS SUMMARY | 2019-11-28 22:32 | XMS REPORT | Encounter Summary ---
Author Author [facility] Organization [facility] Address Unknown Phone Unavailable Care Team Providers Care Core Filer Name Role Phone Ebony Sharp MD PCP Encounter Details Care Team Description Date Type Department Adelaida Olivas MD [address] [facility] [address] [place] [address] [phone] 12/24/2016 Hist-Other [facility] [address] [place] [address] Social History Date Tobacco Use Types Packs/Day [...] Description Date [place] [address] [place] [address] [phone] 02/29/2020 Office Visit Urology documented as of this encounter Procedures Comments Procedure Name Priority Date/Time Associated Diag nosis XR ANKLE LEFT Routine 12/24/2016 3:00 PM CDT documented in this encounter Results * XR Ankle left (12/24/2016 3:00 PM CDT) Specimen Performing Organization Address City/State[facility] Ph one Number [place] documented in this encounter Visit Diagnoses Not on filedocumented in this encounter Additional Health Concerns Resolved Time Infection Noted Time 04/19/2018 12:13 PM CDT Influenza 08/30/2017 10:13 AM LOG TURNER documented as of this encounter
--- OUTSIDE RECORDS SUMMARY | 2019-11-28 22:32 | XMS REPORT | Encounter Summary ---
Author Author [facility] Organization [facility] Address Unknown Phone Unavailable Care Team Providers Care Powder Coat Painter Name Role Phone Ebony Sharp MD PCP Encounter Details Care Team Description Date Type Department Adelaida Olivas MD [address] [facility] [address] [place], [place] [address] 12/24/2016 Hist[facility]cript [facility] Special[facility] [address] [facility] [address] [place], [place] [id number] Social History Date Tobacco Use Types Packs/Day [...] encounter Progress Notes * Juarez Noble - 12/24/2016 3:11 PM CDT - History of Present Illness Presents today for evaluation of her left lower extremity. She has had surgery o n her left ankle. She has not yet heard anything on the bone stimulator. She has been weightbearing in the boot. She has still been taking the Percocet /. Examination Physical examination reveals a 66-year-old woman whose surgical incisions otherw ise appear to be very well healed. There is no overt evidence of delayed wound healing. She is otherwise able to invert and gorge her foot with minimal compla ints of subtalar pain. Impression HISTORY KNEE JOINT REPLACEMENT ([id number]) OTHER SPECIFIED DISORDERS OF TENDON LEFT ANKLE AND FOOT ([id number]) LEFT ANKLE PRIMARY OSTEOARTHRITIS ([id number]) DIABETES MELLITUS ([id number]) Status post left ankle arthrodesis with continued pain. Plan At this point, we will revisit an opportunity to obtain a bone stimulator. I wi ll see her back after this has been performed. Family History Summary: Reviewed history Last on 11/02/2016 and no changes required:01/05/2017 No Known Family History - Entered On: [...] TABS (SIMVASTATIN) as directed VITAMIN D (ERGOCALCIFEROL) 20777 UNIT CAPS (ERGOCALCIFEROL) 74273 units once a w [place] CYCLOBENZAPRINE HCL 10 MG TABS (CYCLOBENZAPRINE HCL) 1 tablet at bedtime LIDOCAINE HCL 3 % CREA (LIDOCAINE HCL) apply to right knee q8 prn pain PERCOCET 10-325 MG TABS (OXYCODONE-ACETAMINOPHEN) 1-2 PO Q 4-6 Hours PRN Pain Allergies: LISINOPRIL (LISINOPRIL) GLUCOPHAGE (METFORMIN HCL) SULFA (SULFADIAZINE) I have reviewed and concur with the medical, social and family histories collect ed and entered on my behalf, on 12/24/2016. -Adelaida Olivas MD, December 24, 2016 2:44 PM Prescriptions: PERCOCET 10-325 MG TABS (OXYCODONE-ACETAMINOPHEN) 1-2 PO Q 4-6 Hours PRN Pain # 90 x 0 Entered by: Sharona Scott Authorized by: Adelaida Olivas MD Signed by: Sharona Scott on 12/24/2016 Method used: Print then Give to Patient RxID: [id number] PERCOCET 10-325 MG TABS (OXYCODONE-ACETAMINOPHEN) 1-2 PO Q 4-6 Hours PRN Pain # 60 x 0 Entered by: Sharona Scott Authorized by: Adelaida Olivas MD Signed by: Sharona Scott on 12/24/2016 Method used: Print then Give to Patient RxID: [id number] CYCLOBENZAPRINE HCL 10 MG TABS (CYCLOBENZAPRINE HCL) 1 tablet at bedtime #30 x 0 Entered by: Sharona Scott Authorized by: Adelaida Olivas MD Signed by: Sharona Scott on 12/24/2016 Method used: Print then Give to Patient RxID: [id number] Vital Signs Ht: 62 in. Wt: 236 lbs. T: 98.0 deg F. T site: tympanic BMI: 43.32 She was encourage to talk with her primary care provider about weight management . Radiographs: Three views, Ap, lateral and mortise radiographic views of the left ankle demons trates no overt evidence of hardware failure. I would like her to return in 3 weeks and obtain a weight bearing x-ray of their left ankle. Orders from current office visit: Ankle x-ray 3 views PQRS 128a PQRS 317na PQRS 130 Measure 109 Diabetic pulse exam Diabetic sensory exam * I,Sharona Scott am scribing for, and in the presence of, Dr. Adelaida Olivas MD . Signed by Adelaida Olivas MD on December 29, 2016 at 1:50 PM X-Ray Report Three views, Ap, lateral and mortise radiographic views of the left ankle demons trates no overt evidence of hardware failure. documented in this encounter Plan of Treatment Care Team Description Date [place] [address] [address] [phone] 02/29/2020 Office Visit Urology documented as of this encounter Visit Diagnoses Not on filedocumented in this encounter Additional Health Concerns Resolved Time Infection Noted Time 04/19/2018 12:13 PM CDT Influenza 08/30/2017 10:13 AM DRAWING IN HAND 08/30/2019 1:09 PM DRAWING IN HAND Influenza - Rule Out 08/30/2019 11:32 AM DRAWING IN HAND 09/17/2019 8:17 AM DRAWING IN HAND RSV 08/31/2019 6:35 PM DRAWING IN HAND documented as of this encounter
--- OUTSIDE RECORDS SUMMARY | 2019-11-28 22:32 | XMS REPORT | Encounter Summary ---
Author Author [facility] Organization [facility] Address Unknown Phone Unavailable Care Team Providers Care Machine Repair Person Name Role Phone Ebony Sharp MD PCP Reason for Visit * Reason Comments Other Encounter Details Care Team Description Date Type Department Tiburcio Wagoner MD [address] [facility] [address] [place] [address] [phone] Other 11/05/2016 Refill [facility] y [facility] (walk-in clinic) [address] [facility] [address] [place], [place] [address] Social History Date Tobacco Use Types Packs/Day [...] Description Date [place] [address] [place] [address] [phone] 02/29/2020 Office Visit Urology documented as of this encounter Visit Diagnoses Not on filedocumented in this encounter
--- OUTSIDE RECORDS SUMMARY | 2019-11-28 22:32 | XMS REPORT | Encounter Summary ---
Author Author [facility] Organization [facility] Address Unknown Phone Unavailable Care Team Providers Care Guest Service Team Leader Name Role Phone Ebony Sharp MD PCP Encounter Details Care Team Description Date Type Department Adelaida Olivas MD [address] [facility] [address] [place], [place] [address] 12/03/2016 Hist-Transcript [facility] En[facility] Specialists [address] [facility] [address] [place], [place] [address] Social History Date Tobacco Use Types Packs/Day [...] Progress Notes * Adelaida Olivas MD - 02/08/2017 2:09 PM CDT - History of Present Illness Presents today for evaluation of her left lower extremity. She has obatined a CT scan of her left ankle. She continues to have pain. She has been weightbearing in her boot. She walks with a cane. Examination Physical examination reveals a 66-year-old woman with tenderness to palpation th roughout the course of her subtalar joint. Her skin is otherwise intact. There is no overt evidence of delayed wound healing. She is otherwise able to plantar flex and dorsiflex her foot through her midfoot with minimal complains of pain. 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 Plan At this point, we did discuss subtalar joint intra-articular injection with kimberley rivas areas of nonunion. We did discuss placing her into a brace as well as obt aining a bone stimulator. I will see her back in three [...] 2.5 MG TABS (AMLODIPINE BESYLATE) as directed ADULT ASPIRIN EC LOW STRENGTH 81 MG TBEC (ASPIRIN) as directed CELEXA 20 MG TABS (CITALOPRAM HYDROBROMIDE) as directed BREO ELLIPTA 200-25 MCG/INH AEPB (FLUTICASONE FUROATE-VILANTEROL) as directed GABAPENTIN 300 MG CAPS (GABAPENTIN) as directed IPRATROPIUM-ALBUTEROL 0.5-2.5 (3) MG/3ML SOLN (IPRATROPIUM-ALBUTEROL) as directe d LANTUS 100 UNIT/ML SOLN (INSULIN GLARGINE) as directed METOPROLOL TARTRATE 100 MG TABS (METOPROLOL TARTRATE) as directed SIMVASTATIN 20 MG TABS (SIMVASTATIN) as directed PERCOCET 5-325 MG TABS (OXYCODONE-ACETAMINOPHEN) 1-2 PO Q 4-6 hours PRN Pain VITAMIN D (ERGOCALCIFEROL) 61072 UNIT CAPS (ERGOCALCIFEROL) 91786 units once a w [place] PERCOCET 7.5-325 MG TABS (OXYCODONE-ACETAMINOPHEN) 1-2 PO Q 4-6 Hours PRN Pain SKELAXIN 800 MG TABS (METAXALONE) 1 tablet every 8 hours as needed for pain CYCLOBENZAPRINE HCL 10 MG TABS (CYCLOBENZAPRINE HCL) 1 tablet at bedtime PERCOCET 10-325 MG TABS (OXYCODONE-ACETAMINOPHEN) 1 PO Q 4-6 Hours PRN Pain Allergies: LISINOPRIL (LISINOPRIL) * METFORMIN SULFA (SULFADIAZINE) I have reviewed and concur with the medical, social and family histories collect ed and entered on my behalf, on 12/03/2016. -Adelaida Olivas MD, December 03, 2016 2:06 PM Prescriptions: PERCOCET 10-325 MG TABS (OXYCODONE-ACETAMINOPHEN) 1 PO Q 4-6 Hours PRN Pain #90 x 0 Entered by: Sharona Scott Authorized by: Adelaida Olivas MD Signed by: Sharona Scott on 12/03/2016 Method used: Print then Give to Patient RxID: [id number] CYCLOBENZAPRINE HCL 10 MG TABS (CYCLOBENZAPRINE HCL) 1 tablet at bedtime #30 Ta blet x 0 Entered by: Sharona Scott Authorized by: Adelaida Olivas MD Signed by: Sharona Scott on 12/03/2016 Method used: Print then Give to Patient RxID: [id number] Vital Signs Ht: 62 in. Wt: 236 lbs. T: 98.7 deg F. T site: tympanic BMI: 43.32 She was encourage to talk with her primary care provider about weight management . Radiographs: Three views, Ap, lateral and oblique radiographic views of the right footX-ray e xamination, AP, lateral, and oblique of the right foot does not demonstrate any overt evidence of fracture or bony subluxation. CT scan was reviewed, which wells s demonstrate that there is a fairly reasonable amount of bony healing that has occurred. I would like her to return in 3 weeks and obtain a weight bearing x-ray of their left ankle. After the risks and benefits of a steroid injection were discussed with the yarelis ent including potential for an infection, skin discoloration, inflammation, she did agree to have an injection in the left subtalar. The skin was prepped with alcohol then injected with Kenalog 40mg and lidocaine mixture. Her puncture wou nd was dressed sterilely. Orders from current office visit: Ankle x-ray 3 views Arthrocentesis small joint/bursa Kenalog 40mg PQRS 128a PQRS 317na PQRS 130 CQM68 Bone Stimulator * I,Sharona Scott am scribing for, and in the presence of, Dr. Adelaida Olivas MD . Signed by Adelaida Olivas MD on December 09, 2016 at 2:36 PM X-Ray Report Three views, Ap, lateral and oblique radiographic views of the right footX-ray e xamination, AP, lateral, and oblique of the right foot does not demonstrate any overt evidence of fracture or bony subluxation. CT scan was reviewed, which wells s demonstrate that there is a fairly reasonable amount of bony healing that has occurred. Signed by Adelaida Olivas MD on December 09, 2016 at 2:36 PM Procedure Note After the risks and benefits of a steroid injection were discussed with the yarelis ent including potential for an infection, skin discoloration, inflammation, she did agree to have an injection in the left subtalar. The skin was prepped with alcohol then injected with Kenalog 40mg and lidocaine mixture. Her puncture wou nd was dressed sterilely. Signed by Adelaida Olivas MD on December 11, 2016 at 9:07 AM - History of Present Illness Presents today for evaluation of her left lower extremity. She has obatined a CT scan of her left ankle. She continues to have pain. She has been weightbearing in her boot. She walks with a cane. Examination Physical examination reveals a 66-year-old woman with tenderness to palpation th roughout the course of her subtalar joint. Her skin is otherwise intact. There i s no overt evidence of delayed wound healing. She is otherwise able to plantar f otto and dorsiflex her foot through her midfoot with minimal complains of pain. 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 Plan At this point, we did discuss subtalar joint intra-articular injection with kimberley medinaial areas of nonunion. We did discuss placing her into a brace as well as obta ining a bone stimulator. I will see her back in three [...] TABS (SIMVASTATIN) as directed VITAMIN D (ERGOCALCIFEROL) 16295 UNIT CAPS (ERGOCALCIFEROL) 46564 units once a w [place] CYCLOBENZAPRINE HCL 10 MG TABS (CYCLOBENZAPRINE HCL) [...] ed and entered on my behalf, on 12/03/2016. -Adelaida Olivas MD, January 31, 2017 10:00 AM Vital Signs BMI: 43.32 She was encourage to talk with her primary care provider about weight management . Radiographs: Three views, Ap, lateral and oblique radiographic views of the right footX-ray e xamination, AP, lateral, and oblique of the right foot does not demonstrate any overt evidence of fracture or bony subluxation. CT scan was reviewed, which wells s demonstrate that there is a fairly reasonable amount of bony healing that has occurred. . Orders from current office visit: PQRS 128a PQRS 226NS PQRS 317na PQRS 130na Measure 109 * X-ray Report Three views, Ap, lateral and oblique radiographic views of the left ankle does n ot demonstrate any overt evidence of fracture or bony subluxation. CT scan was reviewed, which does demonstrate that there is a fairly reasonable amount of bon y healing that has occurred. documented in this encounter Plan of Treatment Care Team Description Date [place] [address] [place] [address] [phone] 02/29/2020 Office Visit Urology documented as of this encounter Visit Diagnoses Not on filedocumented in this encounter Additional Health Concerns Resolved Time Infection Noted Time 04/19/2018 12:13 PM CDT Influenza 08/30/2017 10:13 AM RESEARCH MANAGER 08/30/2019 1:09 PM RESEARCH MANAGER Influenza - Rule Out 08/30/2019 11:32 AM RESEARCH MANAGER 09/17/2019 8:17 AM RESEARCH MANAGER RSV 08/31/2019 6:35 PM RESEARCH MANAGER documented as of this encounter
--- OUTSIDE RECORDS SUMMARY | 2019-11-28 22:32 | XMS REPORT | Encounter Summary ---
Author Author [facility] Organization [facility] Address Unknown Phone Unavailable Care Team Providers Care [employer] Communications Sergeant Name Role Phone Ebony Shrap MD PCP Encounter Details Care Team Description Date Type Department Adelaida Olivas MD [address] [facility] [address] [place], [place] [id number] 12/23/2016 Hist-Telephone [facility] [address] [facility] [address] [place], [place] [id number] Social History Date Tobacco Use Types Packs/Day [...] Clinic Note - Adelaida Olivas MD - 12/23/2016 1:31 PM CDT Phone Note Call from Other Clinic Caller: [employer] Product Development Manager Call For: bone stimulator Summary of call: Received a voicemail from Cristiana Jimenez stating she has left s everal messages for the patient with no response. She states she also called t he patients daughter and she gave her the same numbers she has been leaving mess ages. She just wanted us to be aware in case the patient calls us. I also left a voicemail asking the patient to call regarding the Bone Stimulator. Call taken by: Yuki Londono on December 23, 2016 1:34 PM documented in this encounter Plan of Treatment Care Team Description Date [place] [address] [place] [address] [phone] 02/29/2020 Office Visit Urology documented as of this encounter Visit Diagnoses Not on filedocumented in this encounter Additional Health Concerns Resolved Time Infection Noted Time 04/19/2018 12:13 PM CDT Influenza 08/30/2017 10:13 AM DOCUMENTATION LIAISON 08/30/2019 1:09 PM DOCUMENTATION LIAISON Influenza - Rule Out 08/30/2019 11:32 AM DOCUMENTATION LIAISON 09/17/2019 8:17 AM DOCUMENTATION LIAISON RSV 08/31/2019 6:35 PM DOCUMENTATION LIAISON documented as of this encounter
--- OUTSIDE RECORDS SUMMARY | 2019-11-28 22:32 | XMS REPORT | Encounter Summary ---
Author Author [facility] Organization [facility] Address Unknown Phone Unavailable Care Team Providers Care Excelsior Machine Operator Name Role Phone Ebony Sharp MD PCP Encounter Details Care Team Description Date Type Department Ebony Sharp MD [address] [facility] [address] [place] [address] [phone] 12/15/2016 Documentation [facility] (walk-in clinic) [address] [facility] [address] [place], [place] [address] Social History Date Tobacco Use Types Packs/Day [...] Description Date [place] [address] [place] [address] [phone] 02/29/2020 Office Visit Urology documented as of this encounter Visit Diagnoses Not on filedocumented in this encounter
--- OUTSIDE RECORDS SUMMARY | 2019-11-28 22:32 | XMS REPORT | Encounter Summary ---
Author Author [facility] Organization [facility] Address Unknown Phone Unavailable Care Team Providers Care Director Data Management Name Role Phone Ebony Sharp MD PCP Encounter Details Care Team Description Date Type Department Wyatt Santacruz MD [address] [facility] [address] [place], [place] [id number] 12/04/2016 Hist-Transcript [facility] [address] [facility] [address] [place], [place] [id number] Social History Date Tobacco Use Types Packs/Day Years Used Quit: 09/14/2009 Former Smoker Smokeless Tobacco: Never Used Drinks/Week oz/Week Comments Alcohol Use No Sex Assigned at Date Recorded Female Industry Job Start Date Occupation Not on file Not on file Not on file Travel End Travel History Travel Start No recent travel history available. documented as of this encounter Progress Notes * Wyatt Santacruz MD - 12/04/2016 11:34 AM CDT HPI A 66-year-old female returns today for evaluation of her right knee. At this ti dc, she is doing better. On careful questioning, it appears that she is getting some therapy through a chiropractic clinic for both her back and her knee. She feels that the TENS unit around the knee area, massage, heat, and some deep fri ction massage seems to help. She does have a history of low back pain and quest ionable history of sciatica. She has no groin pain. The pain in the knee is mo re along medial aspect. She has no mechanical symptoms of catching, locking, or grabbing. No significant recurrent effusions. Past Medical History High Blood Pressure Arthritis [...] TABS (SIMVASTATIN) as directed VITAMIN D (ERGOCALCIFEROL) 77064 UNIT CAPS (ERGOCALCIFEROL) 86561 units once a w [employer] CYCLOBENZAPRINE HCL 10 MG TABS (CYCLOBENZAPRINE HCL) 1 tablet at bedtime LIDOCAINE HCL 3 % CREA (LIDOCAINE HCL) apply to right knee q8 prn pain Allergies: LISINOPRIL (LISINOPRIL) GLUCOPHAGE (METFORMIN HCL) SULFA (SULFADIAZINE) I have reviewed and concur with the medical, social and family histories collect ed and entered on my behalf, on 12/04/2016. -Wyatt Santacruz MD, December 04, 2016 11:41 AM Prescriptions: LIDOCAINE HCL 3 % CREA (LIDOCAINE HCL) apply to right knee q8 prn pain #6 x 0 Entered by: Selene Preciadosen Authorized by: Wyatt Santacruz MD Signed by: Wyatt Santacruz MD on 12/09/2016 Method used: Handwritten RxID: [id number] Vital Signs Ht: 62 in. Wt: 236 lbs. T: 96.8 deg F. T site: tympanic BMI: 43.32 She was encourage to talk with her primary care provider about weight management . Exam Physical examination reveals an otherwise healthy-appearing pleasant 66-year-old female, afebrile. Temperature is 96.3. She walks with a slow deliberate gait mainly secondary to a boot on her left foot and ankle. She has negative straigh t leg raise and full range of motion of her hip. She has neutral alignment. We ll-healed surgical scar. No patholaxity to varus or valgus stress. She has no obvious edema or atrophy. Impression Resolving painful right total knee arthroplasty and questionable history of low back pain. Plan We discussed the findings in detail with the patient. She had multiple question s regarding her age, her activity level, expectations and limitations. We have agreed to several more therapy once or twice a week for the next two to four wee ks. I did write her a prescription for some lidocaine cream. I felt we have do ne what we can and do not have a whole lot more to offer to her knee pain. Leanne decker, I will be more than happy to see her back p.r.n. Orders from current office visit: PQRS 128a PQRS 317na PQRS 130 CQM68 PT * documented in this encounter Plan of Treatment Care Team Description Date [place] [address] [place] [address] [phone] 02/29/2020 Office Visit Urology documented as of this encounter Visit Diagnoses Not on filedocumented in this encounter Additional Health Concerns Resolved Time Infection Noted Time 04/19/2018 12:13 PM CDT Influenza 08/30/2017 10:13 AM RECREATIONAL THERAPY TECHNICIAN 08/30/2019 1:09 PM RECREATIONAL THERAPY TECHNICIAN Influenza - Rule Out 08/30/2019 11:32 AM RECREATIONAL THERAPY TECHNICIAN 09/17/2019 8:17 AM RECREATIONAL THERAPY TECHNICIAN RSV 08/31/2019 6:35 PM RECREATIONAL THERAPY TECHNICIAN documented as of this encounter
--- OUTSIDE RECORDS SUMMARY | 2019-11-28 22:32 | XMS REPORT | Encounter Summary ---
Author Author [facility] Organization [facility] Address Unknown Phone Unavailable Care Team Providers Care Pattern Keeper Name Role Phone Ebony Sharp MD PCP Reason for Visit * Reason Comments Urinary Tract Infection dysuria, frequency, urine o janie, started a few weeks ago Encounter Details Care Team Description Date Type Department Tonya Hernandez APRN No Forwarding Address UTI symptoms (Primary Dx); Urinary tract infection, site not specified 11/23/2016 Office Visit [facility] (walk-in clinic) [address] [facility] [address] [place], [place] [id number] Social History Date Tobacco Use Types Packs/Day [...] Signs Reading Time Taken Comments Vital Sign 130/72 11/23/2016 10:01 AM CDT Blood Pressure 87 11/23/2016 10:01 AM CDT Pulse 36.8 C (98.2 F) 11/23/2016 10:01 AM CDT Temperature - - Respiratory Rate 95% 11/23/2016 10:01 AM CDT Oxygen Saturation - - Inhaled Oxygen Concentration - - Weight - - Height - - Body Mass Index documented in this encounter Progress Notes * Tonya Hernandez APRN - 11/23/2016 9:50 AM CDT Chief Complaint Patient presents with Urinary Tract Infection dysuria, frequency, urine odor, started a few weeks ago SUBJECTIVE: Caren Patten is a 66 y.o. female who complains of urinary frequency , urgency and dysuria x 1 month, without fever, chills, or abnormal vaginal disc harge or bleeding. She complains of some nausea and flank pain bilaterally. OBJECTIVE: Visit Vitals BP 130/72 Pulse 87 Temp 36.8 C (98.2 F) SpO2 95% VSS General: Appears well, in no apparent distress. CV: Regular rate and rhythm, S1S2, no significant murmur, gallops, or rubs. Resp: Lungs CTA bilaterally. GI:abdomen is soft, non distended, no guarding, mass, rebound or organomegaly. + CVA tenderness bilaterally with suprapubic tenderness. Skin: no rashes or lesions Office Visit on 11/23/2016 Component Date Value Ref Range Status Appearance, Urine 11/23/2016 yellow, cloudy Colorless/Yellow/Dark Yellow Fi nal Glucose Urine 11/23/2016 Negative Negative mg/dL Final Bilirubin Urine 11/23/2016 Negative Negative Final Ketones Urine 11/23/2016 Negative Negative Final Specific [place], UA 11/23/2016 1.025 1.001 - 1.030 Final Hemoglobin Urine 11/23/2016 Moderate* Negative Final PH Urine 11/23/2016 5.5 5.0 - 8.0 Final Protein Urine Qual 11/23/2016 100 * Negative Final Urobilinogen Urine 11/23/2016 Negative Negative EU/dL Final Nitrite Urine 11/23/2016 Positive* Negative Final Leukocyte Esterase 11/23/2016 Large* Negative Final ASSESSMENT/PLAN: Caren was seen today for urinary tract infection. Diagnoses and all orders for this visit: UTI symptoms - POCT urinalysis dipstick - UA Culture; Future Urinary tract infection, site not specified - ciprofloxacin HCl (CIPRO) 500 MG tablet; Take 1 tablet (500 mg total) by m outh 2 (two) times a day. Push oral fluids especially water. Avoid caffeine which will irritate the bladd er more. May use pyridium OTC for pain/discomfort. Pt will be contacted with u rine culture results if any changes in treatment are needed. Complete entire co urse of antibiotic and F/U if symptoms not improving as expected. Tonya Hernandez APRN documented in this encounter Plan of Treatment Care Team Description Date [place] [address] [place] [address] [phone] 02/29/2020 Office Visit Urology documented as of this encounter Procedures Comments Procedure Name Priority Date/Time Associated Diag nosis POCT URINALYSIS DIPSTICK Routine 11/23/2016 UTI s ymptoms 9:58 AM CDT documented in this encounter Results * UA Culture (11/23/2016 12:00 PM CDT) Isolate 1 >100,000 Cfu/ml (A) [facility] Isolate 1 Escherichia coli (A) [facility] Specimen Urine Antibiotic Method Susceptibility Organism AMPICILLIN >=32: Resistant Escherichia coli CEFAZOLIN. <=4: Sensitive Escherichia coli CEFTRIAXONE <=1: Sensitive Escherichia coli CEFEPIME <=1: Sensitive Escherichia coli MEROPENEM <=0.25: Sensitive Escherichia coli GENTAMICIN <=1: Sensitive Escherichia coli CIPROFLOXACIN. <=0.25: Sensitive Escherichia coli NITROFURANTOIN <=16: Sensitive Escherichia coli SEPTRA/BACTRIM <=20: Sensitive Escherichia coli Performing Organization Address City/State/Zipcode Ph one Number [address] [address] LABORATORIES * POCT urinalysis dipstick (11/23/2016 9:58 AM CDT) Appearance, yellow, cloudy Colorless/Yellow/Da r Urine k Yellow Glucose Urine Negative Negative mg/dL Bilirubin Urine Negative Negative Ketones Urine Negative Negative Specific 1.025 1.001 - 1.030 [place], UA Hemoglobin Moderate (A) Negative Urine PH Urine 5.5 5.0 - 8.0 Protein Urine 100 (A) Negative Qual Urobilinogen Negative Negative EU/dL Urine Nitrite Urine Positive (A) Negative Leukocyte Large (A) Negative Esterase Specimen Urine documented in this encounter Visit Diagnoses Diagnosis UTI symptoms Urinary tract infection, site not speci fied documented in this encounter
--- OUTSIDE RECORDS SUMMARY | 2019-11-28 22:32 | XMS REPORT | Encounter Summary ---
Author Author [facility] Organization [facility] Address Unknown Phone Unavailable Care Team Providers Care Sql Ssrs Developer Name Role Phone Ebony Sharp MD PCP Encounter Details Care Team Description Date Type Department Adelaida Olivas MD [address] [facility] [address] [place] [address] [phone] 12/03/2016 Hist-Other [facility] [address] [place] [address] Social History Date Tobacco Use Types Packs/Day [...] Description Date [place] [address] [place] [address] [phone] 02/29/2020 Office Visit Urology documented as of this encounter Procedures Comments Procedure Name Priority Date/Time Associated Diag nosis XR ANKLE LEFT Routine 12/03/2016 2:20 PM CDT documented in this encounter Results * XR Ankle left (12/03/2016 2:20 PM CDT) Specimen Performing Organization Address City/State/[facility] Ph one Number LEVI documented in this encounter Visit Diagnoses Not on filedocumented in this encounter Additional Health Concerns Resolved Time Infection Noted Time 04/19/2018 12:13 PM CDT Influenza 08/30/2017 10:13 AM SUPERVISOR TOY ASSEMBLY documented as of this encounter
--- OUTSIDE RECORDS SUMMARY | 2019-11-28 22:32 | XMS REPORT | Encounter Summary ---
Author Author [facility] Organization [facility] Address Unknown Phone Unavailable Care Team Providers Care Visual Training Aide Name Role Phone Ebony Sharp MD PCP Encounter Details Care Team Description Date Type Department Adelaida Olivas MD [address] [facility] [address] [place], [place] [id number] 11/24/2016 Hist-Transcript [facility] [address] [facility] [address] [place], [place] [id number] Social History Date Tobacco Use Types Packs/Day [...] encounter Progress Notes * Juarez Noble - 11/24/2016 3:00 PM CDT - History of Present Illness Presents today for evaluation of her left lower extremity. She states she gets p ain on her anterior ankle when she weightbears. She uses a walker to walk. Examination Physical examination reveals a pleasant woman who has continued tenderness throu ghout the course of the anterior aspect of her left ankle. Her skin is otherwis e intact. She is otherwise able to flex and extend her midfoot with minimal com plaints of pain. She has some swelling throughout the course of ankle in and of itself. 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 Plan At this point, we did discuss bone stimulator. I will see her back if this is t he course she wishes to take. Past Medical [...] 4-6 hours PRN Pain VITAMIN D (ERGOCALCIFEROL) 75110 UNIT CAPS (ERGOCALCIFEROL) 22059 units once a w [place] PERCOCET 7.5-325 MG TABS (OXYCODONE-ACETAMINOPHEN) 1-2 PO Q 4-6 Hours PRN Pain SKELAXIN 800 MG TABS (METAXALONE) 1 tablet every 8 hours as needed for pain Allergies: LISINOPRIL (LISINOPRIL) * METFORMIN SULFA (SULFADIAZINE) I have reviewed and concur with the medical, social and family histories collect ed and entered on my behalf, on 11/24/2016. -Adelaida Olivas MD, November 24, 2016 2:49 PM Prescriptions: PERCOCET 7.5-325 MG TABS (OXYCODONE-ACETAMINOPHEN) 1-2 PO Q 4-6 Hours PRN Pain #90 x 0 Entered by: Sharona Scott Authorized by: Adelaida Olivas MD Signed by: Sharona Scott on 11/24/2016 Method used: Print then Give to Patient RxID: [id number] PERCOCET 7.5-325 MG TABS (OXYCODONE-ACETAMINOPHEN) 1-2 PO Q 4-6 Hours PRN Pain #60 x 0 Entered by: Sharona Scott Authorized by: Adelaida Olivas MD Signed by: Sharona Scott on 11/24/2016 Method used: Print then Give to Patient RxID: [id number] SKELAXIN 800 MG TABS (METAXALONE) 1 tablet every 8 hours as needed for pain #90 x 0 Entered by: Sharona Scott Authorized by: Adelaida Olivas MD Signed by: Sharona Scott on 11/24/2016 Method used: Print then Give to Patient RxID: [id number] Vital Signs Ht: 62 in. Wt: 236 lbs. T: 96.7 deg F. T site: tympanic BMI: 43.32 She was encourage to talk with her primary care provider about weight management . Radiographs: Three views, Ap, lateral and mortise radiographic views of the left ankle does n ot demonstrate any overt evidence of bony subluxation. I would like her to return in 4 weeks and obtain a weight bearing x-ray of their left ankle. Orders from current office visit: Ankle x-ray 3 views PQRS 128a PQRS 317na PQRS [address] Ankle w/o contrast * ISharona am scribing for, and in the presence of, Dr. Adelaida Olivas MD . Signed by Adelaida Olivas MD on December 28, 2016 at 8:10 AM X-Ray Report Three views, Ap, lateral and mortise radiographic views of the left ankle does n ot demonstrate any overt evidence of bony subluxation. documented in this encounter Plan of Treatment Care Team Description Date [place] [address] [place] [address] [phone] 02/29/2020 Office Visit Urology documented as of this encounter Visit Diagnoses Not on filedocumented in this encounter Additional Health Concerns Resolved Time Infection Noted Time 04/19/2018 12:13 PM CDT Influenza 08/30/2017 10:13 AM GROUP HOME SUPERVISOR 08/30/2019 1:09 PM GROUP HOME SUPERVISOR Influenza - Rule Out 08/30/2019 11:32 AM GROUP HOME SUPERVISOR 09/17/2019 8:17 AM GROUP HOME SUPERVISOR RSV 08/31/2019 6:35 PM GROUP HOME SUPERVISOR documented as of this encounter
--- OUTSIDE RECORDS SUMMARY | 2019-11-28 22:32 | XMS REPORT | Encounter Summary ---
Author Author [facility] Organization [facility] Address Unknown Phone Unavailable Care Team Providers Care Cashiers Supervisor Name Role Phone Ebony Sharp MD PCP Reason for Referral * MRI/CAT/PET Scan (Routine) Referred By Contact Referred To Contact Status Reason Specialty Diagnoses / Procedures Adelaida Olivas MD [address] [facility] [address] [place] [address] [place] [address] Closed Radiology Diagnoses Osteoarthritis of left ankle P rocedures CT Ankle wo contrast left Reason for Visit * MRI/CAT/PET Scan (Routine) Referred By Contact Referred To Contact Status Reason Specialty Diagnoses / Procedures Adelaida Olivas MD [address] [place] [address] Closed Radiology Diagnoses Osteoarthritis of left ankle P rocedures CT Ankle wo contrast left Encounter Details Care Team Description Date Type Department Adelaida Olivas MD 120 [facility] 200 [place] [id number] [phone] Osteoarthritis of left ankle 12/01/2016 [facility] [address] [place] [address] Social History Date Tobacco Use Types Packs/Day [...] Take 2 0 tablets by mouth daily. 07/15/2016 02/04/2017 BREO ELLIPTA 100-25 0 mcg/dose INHALER 02/14/2016 03/29/2017 citalopram (CELEXA) 20 MG Take 1 tablet 90 tablet 3 tablet (20 mg total) by mouth daily. 10/04/2016 02/04/2017 ergocalciferol TK 1 C PO 0 (ERGOCALCIFEROL) 50,000 WEEKLY unit capsule 02/14/2016 04/08/2017 fluticasone-vilanterol Inhale 1 puff 3 each 3 (BREO ELLIPTA) 200-25 daily. mcg/actuation INHALERIndications: maintenance therapy for asthma 02/14/2016 02/18/2017 gabapentin (NEURONTIN) Take 1 270 capsule 3 300 MG capsule capsule (300 mg total) by mouth 3 (three) times a day. 10/14/2016 02/05/2017 LANTUS 100 unit/mL INJECT 15 10 mL 3 injection UNITS UNDER THE SKIN EVERY EVENING 05/22/2016 04/08/2017 lidocaine (XYLOCAINE) 5 % APPLY 30 g 0 ointment EXTERNALLY TO THE AFFECTED AREA 1 TO 4 TIMES DAILY NEEDED 02/14/2016 03/29/2017 metoprolol tartrate Take 1 tablet 180 tablet 3 (LOPRESSOR) 100 MG tablet (100 mg total) by mouth 2 (two) times a day. 05/20/2016 02/04/2017 omeprazole (PRILOSEC) 20 0 MG capsule 11/03/2016 04/07/2017 oxyCODONE-acetaminophen Take 1-2 0 (PERCOCET) 7.5-325 mg per tablets by tablet mouth every 6 (six) hours as needed. 02/14/2016 04/08/2017 simvastatin (ZOCOR) 20 MG Take 1 tablet 90 tablet 3 tablet (20 mg total) by mouth nightly. documented as of this encounter Plan of Treatment Care Team Description Date [place] [address] [place] [address] [phone] 02/29/2020 Office Visit Urology documented as of this encounter Procedures Comments Procedure Name Priority Date/Time Associated Diag nosis CT ANKLE WO CONTRAST LEFT Routine 12/01/2016 Oste oarthritis of left 1:28 PM CDT ankle documented in this encounter Results * CT Ankle wo contrast left (12/01/2016 1:28 PM CDT) Specimen Impressions Performed At 1. Postsurgical changes of prior tibiotalar arthrodes is. Four surgical MCKESSON screws are present, with one screw also traversing the distal tibiofibular joint. The head of the mos t posteromedial tibiotalar screw does not appear flush with the tibial c ortex, with a gap of up to approximately 4 mm seen far posteriorly . 2. Significant ankylosis across the tib iotalar joint. However, there are persistent areas of joint space visible , both medially and laterally. 3. Osseous productive changes along the anterolateral ankle, which could cause symptoms of anterolateral impinge ment. Multiple punctate high density foci seen in the anterolateral soft tissues, possibly postsurgical. 4. Anterolateral predominant soft tissu e swelling. READING SITE: [facility] Narrative Performed At Patient: ISIAH BENÍTEZ Sex#: F # [id number] Jose#: [id number] Location: SLE CT Procedure Requested: [id number] CT ANKLE WO CONTRAST LEFT Reason for Exam: Osteoarthritis of le ft ankle Exam Ordered: 12/01/2016 13 21 Exam Date/Time: 12/01/2016 132 8 Begin exam date/time: 12/01/[address] ANKLE WO CONTRAST LEFT INDICATION: Osteoarthritis of left an kle. Assess ankle fusion. COMPARISON: None. Technique: CT imaging of the left ank le was performed, without contrast, per standard protocol. FINDINGS: Changes of prior tibiotalar arthrodesis are seen, with 4 surgical screws noted traversing this joint. One of the screws also traverses the distal tibiofibular joint and syndesmosis. Par tial ankylosis is noted of the tibiotalar joint, with areas of bony br idging seen along the central joint space, both anteriorly and loan assistant iorly. However, there is also persistent joint space present, with ar eas of incomplete bridging also noted. Areas of nonbridging are located along the anteromedial and anterolateral joint space in particular . Articular surface irregularity and remodeling is seen, of both the tib iotalar and distal tibiofibular joints. The head of the more posterior and medi al surgical screw is not flush with the medial cortex of the tibia, an d appears slightly offset, by up to approximately 4 mm far posteriorly ( series 3 image 66). No hardware fracture is seen. No evidence of acute fracture is noted. No joint dislocation. The distal Achilles tendon appears intact. Bony pr oductive changes noted along the anterolateral ankle, with multiple punc costa foci of high density seen in this region. Soft tissue swelling, grea test anterolaterally. Procedure Note Interface, Rad Results In - 12/01/2016 3:22 PM CDT Patient: ISIAH BENÍTEZ Sex#: F # [id number] Jose#: [id number] Location: SLE CT Procedure Requested: [id number] CT ANKLE WO CONTRAST LEFT Reason for Exam: Osteoarthritis of left ankle Exam Ordered: 12/01/2016 1321 Exam Date/Time: 12/01/2016 1328 Begin exam date/time: 12/01/[address] ANKLE WO CONTRAST LEFT INDICATION: Osteoarthritis of left ankle. Assess ankle fusion. COMPARISON: None. Technique: CT imaging of the left ankle was performed, without contrast, per standard protocol. FINDINGS: Changes of prior tibiotalar arthrodesis are seen, with 4 surgical screws noted traversing this joint. One of the screws also traverses the distal tibiofibular joint and syndesmosis. Partial ankylosis is noted of the tibiotalar joint, with areas of bony bridging seen along the central joint space, both anteriorly and posteriorly. However, there is also persistent joint space present, with areas of incomplete bridging also noted. Areas of nonbridging are located along the anteromedial and anterolateral joint space in particular. Articular surface irregularity and remodeling is seen, of both the tibiotalar and distal tibiofibular joints. The head of the more posterior and medial surgical screw is not flush with the medial cortex of the tibia, and appears slightly offset, by up to approximately 4 mm far posteriorly (series 3 image 66). No hardware fracture is seen. No evidence of acute fracture is noted. No joint dislocation. The distal Achilles tendon appears intact. Bony productive changes noted along the anterolateral ankle, with multiple punctate foci of high density seen in this region. Soft tissue swelling, greatest anterolaterally. IMPRESSION 1. Postsurgical changes of prior tibiota lar arthrodesis. Four surgical screws are present, with one screw also traversing the distal tibiofibular joint. The head of the most posteromedial tibiotalar screw does not appear flush with the tibial cortex, with a gap of up to approximately 4 mm seen far posteriorly. 2. Significant ankylosis across the tibi otalar joint. However, there are persistent areas of joint space visible, both medially and laterally. 3. Osseous productive changes along the anterolateral ankle, which could cause symptoms of anterolateral impingement. Multiple punctate high density foci seen in the anterolateral soft tissues, possibly postsurgical. 4. Anterolateral predominant soft tissue swelling. READING SITE: [facility] Address City/State/Zipcode Ph one Number [place] documented in this encounter Visit Diagnoses Diagnosis Osteoarthritis of left ankle documented in this encounter
--- OUTSIDE RECORDS SUMMARY | 2019-11-28 22:32 | XMS REPORT | Encounter Summary ---
Author Author [facility] Organization [facility] Address Unknown Phone Unavailable Care Team Providers Care Apartment Maintenance Worker Name Role Phone Ebony Sharp MD PCP Encounter Details Care Team Description Date Type Department Adelaida Olivas MD [address] [facility] [address] [place] [address] 11/25/2016 Hist-Telephone [facility] [address] [facility] [address] [place], [place] [id number] Social History Date Tobacco Use Types Packs/Day [...] Clinic Note - Adelaida Olivas MD - 11/25/2016 2:30 PM CDT Follow-up for Phone Call Follow-up Details: Received prior authorization request from [facility] for Skelaxin 800mg. Started on [email or web address] Plan Phone # - [phone] [facility] - [phone] Submitted to plan. Follow-up by: Alec Jimenez on November 25, 2016 2:31 PM Additional Follow-up for Phone Call Additional Follow-up Details: Received approval for medication from [facility] and it went through. Additional Follow-up by: Alec Jimenez on November 27, 2016 1:13 PM documented in this encounter Plan of Treatment Care Team Description Date [place] [address] [address] [phone] 02/29/2020 Office Visit Urology documented as of this encounter Visit Diagnoses Not on filedocumented in this encounter Additional Health Concerns Resolved Time Infection Noted Time 04/19/2018 12:13 PM CDT Influenza 08/30/2017 10:13 AM COMMUNITY ARTS CENTRE MANAGER 08/30/2019 1:09 PM COMMUNITY ARTS CENTRE MANAGER Influenza - Rule Out 08/30/2019 11:32 AM COMMUNITY ARTS CENTRE MANAGER 09/17/2019 8:17 AM COMMUNITY ARTS CENTRE MANAGER RSV 08/31/2019 6:35 PM COMMUNITY ARTS CENTRE MANAGER documented as of this encounter
--- OUTSIDE RECORDS SUMMARY | 2019-11-28 22:32 | XMS REPORT | Encounter Summary ---
Author Author [facility] Organization [facility] Address Unknown Phone Unavailable Care Team Providers Care Punchboard Assembler Name Role Phone Ebony Sharp MD PCP Reason for Visit * Reason Comments Follow-up eldon lft ankle [id number] [facility] TVX: Appt. Reminder (12/01/2016 06:52 PM) Phone Call - Message Delivered (X=Answering [place]) Encounter Details Care Team Description Date Type Department Adelaida Olivas MD [address] [facility] [address] [place] [address] [phone] 12/03/2016 Hist-Appointmen [facility] [address] [facility] [address] [place] [address] Social History Date Tobacco Use Types Packs/Day [...] Description Date [place] [address] [place] [address] [phone] 02/29/2020 Office Visit Urology documented as of this encounter Visit Diagnoses Not on filedocumented in this encounter Additional Health Concerns Resolved Time Infection Noted Time 04/19/2018 12:13 PM CDT Influenza 08/30/2017 10:13 AM COMPUTER FORENSICS TECHNICIAN documented as of this encounter
--- OUTSIDE RECORDS SUMMARY | 2019-11-28 22:32 | XMS REPORT | Encounter Summary ---
Author Author [facility] Organization [facility] Address Unknown Phone Unavailable Care Team Providers Care Conditioning Room Worker Name Role Phone Ebony Sharp MD PCP Reason for Referral * MRI/CAT/PET Scan (Routine) Referred By Contact Referred To Contact Status Reason Specialty Diagnoses / Procedures Adelaida Olivas MD [address] [facility] [address] [place] [address] [place] [address] Closed Radiology Diagnoses Osteoarthritis of left ankle P rocedures CT Ankle wo contrast left Encounter Details Care Team Description Date Type Department Adelaida Olivas MD [address] [facility] [address] [place] [address] [phone] Osteoarthritis of left ankle (Primary Dx ) 11/25/2016 Transcribe [facility] [address] [place] [address] Social History Date Tobacco Use Types Packs/Day [...] Description Date [place] [address] [place] [address] [phone] 02/29/2020 Office Visit Urology documented as of this encounter Results * CT Ankle wo contrast left (12/01/2016 1:28 PM CDT) Specimen Impressions Performed At 1. Postsurgical changes of prior tibiotalar arthrodes is. Four surgical LEVI screws are present, with one screw also [...] predominant soft tissu e swelling. READING SITE: [facility] Narrative Performed At Patient: ISIAH BENÍTEZ Sex#: F # [id number] Jose#: [id number] Location: [facility] CT Procedure Requested: [id number] CT ANKLE WO CONTRAST LEFT Reason for [...] the central joint space, both anteriorly and mental health counselor iorly. However, there is also persistent joint [...] 3:22 PM CDT Patient: ISIAH BENÍTEZ Sex#: Paulina # 1950 Jose#: [id number] Location: [facility] CT Procedure Requested: [id number] CT ANKLE WO CONTRAST LEFT Reason for [...] Anterolateral predominant soft tissue swelling. READING SITE: [facility] Address City/State/Zipcode Ph one Number [facility] documented in this encounter Visit Diagnoses Diagnosis Osteoarthritis of left ankle documented in this encounter Additional Health Concerns Resolved Time Infection Noted Time 04/19/2018 12:13 PM CDT Influenza 08/30/2017 10:13 AM FISH STRINGER ASSEMBLER 08/30/2019 1:09 PM FISH STRINGER ASSEMBLER Influenza - Rule Out 08/30/2019 11:32 AM FISH STRINGER ASSEMBLER 09/17/2019 8:17 AM FISH STRINGER ASSEMBLER RSV 08/31/2019 6:35 PM FISH STRINGER ASSEMBLER documented as of this encounter
--- OUTSIDE RECORDS SUMMARY | 2019-11-28 22:32 | XMS REPORT | Encounter Summary ---
Author Author [facility] Organization [facility] Address Unknown Phone Unavailable Care Team Providers Care Mushroom Grower Name Role Phone Ebony Sharp MD PCP Encounter Details Care Team Description Date Type Department Adelaida Olivas MD [address] [facility] [address] [place] [address] 12/02/2016 [facility]phone [facility] [address] [facility] [address] [place], [place] [address] Social History Date Tobacco Use Types Packs/Day [...] Clinic Note - Adelaida Olivas MD - 12/02/2016 9:08 AM CDT + + + + + + + + + + + + + + + + + + + + + + + + + + + + + + + + + + + + + + + + + + + + + + + + + + + + + +---- Converted from flag ---- ---- 12/02/2016 8:56 AM, Adelaida Olivas MD wrote: Can we call to get a bone stimulator for this patient. Her joint has areas that have not fused completely. Follow-up for Phone Call Follow-up Details: Please call patient regarding CT results and then send to [facility] muhammad for the bone stim. Follow-up by: Sheryl Stearns on December 02, 2016 9:09 AM Additional Follow-up for Phone Call Additional Follow-up Details: Left message. Additional Follow-up by: Denise Ornelas on December 02, 2016 12:27 PM Additional Follow-up for Phone Call Additional Follow-up Details: faxing information over to Tony Additional Follow-up by: Edith Bautista on December 04, 2016 6:47 AM documented in this encounter Plan of Treatment Care Team Description Date [place] [address] [address] [phone] 02/29/2020 Office Visit Urology documented as of this encounter Visit Diagnoses Not on filedocumented in this encounter Additional Health Concerns Resolved Time Infection Noted Time 04/19/2018 12:13 PM CDT Influenza 08/30/2017 10:13 AM MUD MILL TENDER 08/30/2019 1:09 PM MUD MILL TENDER Influenza - Rule Out 08/30/2019 11:32 AM MUD MILL TENDER 09/17/2019 8:17 AM MUD MILL TENDER RSV 08/31/2019 6:35 PM MUD MILL TENDER documented as of this encounter
--- OUTSIDE RECORDS SUMMARY | 2019-11-28 22:33 | XMS REPORT | Encounter Summary ---
Author Author [facility] Organization [facility] Address Unknown Phone Unavailable Care Team Providers Care Green Meat Grader Name Role Phone Ebony Sharp MD PCP Reason for Visit * Reason Comments Other Encounter Details Care Team Description Date Type Department Ebony Sharp MD [address] [facility] [address] [place] [address] [phone] Other 09/09/2016 Refill [facility] (walk-in clinic) [address] [facility] [address] [place], [place] [id number] Social History Date Tobacco Use Types Packs/Day [...] Description Date [place] [address] [place] [address] [phone] 02/29/2020 Office Visit Urology documented as of this encounter Visit Diagnoses Not on filedocumented in this encounter
--- OUTSIDE RECORDS SUMMARY | 2019-11-28 22:33 | XMS REPORT | Encounter Summary ---
Author Author [facility] Organization [facility] Address Unknown Phone Unavailable Care Team Providers Care Chain Hooker Name Role Phone Ebony Sharp MD PCP Reason for Visit * Reason Comments Follow-up eldon lft ankle [id number] TVX: Appt. Reminder (08/31/2016 07:22 PM) Phone Call - Message Delivered (X=Answering [place]) Encounter Details Care Team Description Date Type Department Adelaida Olivas MD [address] [facility] [address] [place] [address] [phone] 09/02/2016 Hist[facility]Appointmen [facility] [address] [facility] [address] [place] [address] Social History Date Tobacco Use Types Packs/Day [...] Description Date [place] [address] [place] [address] [phone] 02/29/2020 Office Visit Urology documented as of this encounter Visit Diagnoses Not on filedocumented in this encounter Additional Health Concerns Resolved Time Infection Noted Time 04/19/2018 12:13 PM CDT Influenza 08/30/2017 10:13 AM PACKAGER HEAD documented as of this encounter
--- OUTSIDE RECORDS SUMMARY | 2019-11-28 22:33 | XMS REPORT | Encounter Summary ---
Author Author [facility] Organization [facility] Address Unknown Phone Unavailable Care Team Providers Care Stem Crusher Name Role Phone Ebony Sharp MD PCP Reason for Visit * Reason Comments Follow-up recheck right knee hj 11-02 Encounter Details Care Team Description Date Type Department Wyatt Santacruz MD [address] [facility] [address] [place] [address] [phone] 11/02/2016 Hist[facility]Appointmen [facility] [address] [facility] [address] [place], [place] [id number] Social History Date Tobacco Use Types Packs/Day [...] Description Date [place] [address] [place] [address] [phone] 02/29/2020 Office Visit Urology documented as of this encounter Visit Diagnoses Not on filedocumented in this encounter Additional Health Concerns Resolved Time Infection Noted Time 04/19/2018 12:13 PM CDT Influenza 08/30/2017 10:13 AM RAILWAYS ASSISTANT documented as of this encounter
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
--- OUTSIDE RECORDS SUMMARY | 2019-11-28 22:33 | XMS REPORT | Encounter Summary ---
Author Author [facility] Organization [facility] Address Unknown Phone Unavailable Care Team Providers Care Manager Of Community Relations Name Role Phone Ebony Sharp MD PCP Encounter Details Care Team Description Date Type Department Adelaida Olivas MD [address] [facility] [address] [place] [address] 10/09/2016 Hist-Telephone [facility] [address] [facility] [address] [place], [place] [id number] Social History Date Tobacco Use Types Packs/Day [...] Clinic Note - Adelaida Olivas MD - 10/09/2016 10:08 AM GAS OPERATIONS SUPERINTENDENT Phone Note Call from Patient Summary of call: Injury: rt knee prothesis chip, rt leg and swelling and pain DOI: 10/08/2016 Was seen at [facility]? [facility] Insurance Medicare Requesting Dr. Olivas tomorrow. Will he see for this? Call taken by: Trina Rhodes on October 09, 2016 10:12 AM Follow-up for Phone Call Follow-up Details: Printed Follow-up by: Lilian Greenwood on October 09, 2016 10:22 AM Additional Follow-up for Phone Call Additional Follow-up Details: [facility] x[facility] in [facility], per Dr. Olivas please ask Dr. Adrien davila if he will see. Additional Follow-up by: Lilian Greenwood on October 09, 2016 10:34 AM Additional Follow-up for Phone Call Additional Follow-up Details: We can see, last appointment on Wednesday. Additional Follow-up by: Selene Mendoza on October 09, 2016 12:06 PM Additional Follow-up for Phone Call Additional Follow-up Details: Please call and scheduled with Dr. Santacruz 04:30 Wed10/12/[address] Santacruz Additional Follow-up by: Lilian Greenwood on October 09, 2016 12:34 PM Additional Follow-up for Phone Call Additional Follow-up Details: Called patient and scheduled the appointment. Additional Follow-up by: Trina Rhodes on October 09, 2016 2:07 PM OPERATIONS SUPERINTENDENT documented in this encounter Plan of Treatment Care Team Description Date [place] [address] [address] [phone] 02/29/2020 Office Visit Urology documented as of this encounter Visit Diagnoses Not on filedocumented in this encounter Additional Health Concerns Resolved Time Infection Noted Time 04/19/2018 12:13 PM CDT Influenza 08/30/2017 10:13 AM GAS OPERATIONS SUPERINTENDENT 08/30/2019 1:09 PM GAS OPERATIONS SUPERINTENDENT Influenza - Rule Out 08/30/2019 11:32 AM GAS OPERATIONS SUPERINTENDENT 09/17/2019 8:17 AM GAS OPERATIONS SUPERINTENDENT RSV 08/31/2019 6:35 PM GAS OPERATIONS SUPERINTENDENT documented as of this encounter
--- OUTSIDE RECORDS SUMMARY | 2019-11-28 22:33 | XMS REPORT | Encounter Summary ---
Author Author [facility] Organization [facility] Address Unknown Phone Unavailable Care Team Providers Care Tube Turner Name Role Phone Ebony Sharp MD PCP Encounter Details Care Team Description Date Type Department Juarez Noble 11/02/2016 Hist-Transcript [facility] Encounter Specialists [address] [facility] [address] [place], [place] [id number] Social History Date Tobacco Use Types Packs/Day [...] encounter Progress Notes * Juarez Noble - 11/02/2016 2:03 PM CDT - History of Present Illness The patient presents for followup status post left ankle arthrodesis. She repor ts that she has improved approximately 75% since her previous visit. Her pain i s minimal on the lateral aspect of her ankle. Additionally, her swelling has co ntinued to improve. She is not sleeping in her boot. She continues to walk in her boot using her walker. She is requesting a decrease in pain medications. Examination The patient is alert, oriented, and in no acute distress. Dorsalis pedis pulse is palpable. Mild edema is present throughout the ankle. Mild tenderness to pa lpation throughout the lateral aspect of the ankle. Dorsiflexion and plantar fl exion in midfoot and forefoot are without complaint. Homans sign negative. Impression A 66-year-old woman 87 days status post tibiotalar arthrodesis. Plan At this point, we will allow her to be weightbearing as tolerated in her boot. Additionally, we will decrease her pain medication to Percocet 5 mg. She will c ontinue to wear her compression stocking on a daily basis. Family History Summary: Reviewed history Last on 10/12/2016 and no changes required:11/11/2016 No Known Family History - Entered On: [...] and entered on my behalf, on 11/02/2016. -Mendy Hall PA-C, November 02, 2016 1:31 PM Prescriptions: PERCOCET 5-325 MG TABS (OXYCODONE-ACETAMINOPHEN) 1-2 PO Q 4-6 hours PRN Pain #6 0 x 0 Entered by: Mendy Hall PA-C Authorized by: Vic Keita MD Signed by: Mendy Hall PA-C on 11/02/2016 Method used: Print then Give to Patient RxID: [id number] Review of Systems General: Complains of sweats. Eyes: Complains of light sensitivity. Cardiovascular: Complains of swelling of hands or feet, shortness of breath with exertion. Respiratory: Complains of shortness of breath. Gastrointestinal: Denies loss of appetite, nausea, vomiting, hemorrhoids. Genitourinary: Complains of urinary frequency. Musculoskeletal: Complains of muscle cramps, arthritis. Skin: Complains of night sweats. Neurologic: Complains of numbness, tingling. Psychiatric: Complains of anxiety. Endocrine: Denies cold intolerance, heat intolerance, excessive thirst, excessiv e urination, weight change. Heme/Lymphatic: Denies abnormal bruising, fevers. Allergic/Immunologic: Complains of seasonal allergies. Vital Signs Ht: 62 in. Wt: 236 lbs. T: 97.2 deg F. T site: tympanic BMI: 43.32 She was encourage to talk with her primary care provider about weight management . Radiographs: AP, lateral, and oblique left ankle x-rays demonstrate a tibiotalar arthrodesis with no signs of hardware migration. I would like her to return in 2-3 weeks and obtain a weight bearing x-ray of the ir left ankle. Orders from current office visit: Ankle x-ray 3 views PQRS 128a PQRS 317na PQRS 130 CQM68 PQRS 41 * Signed by Adelaida Olivas MD on November 03, 2016 at 10:59 AM X-Ray Report AP, lateral, and oblique left ankle x-rays demonstrate a tibiotalar arthrodesis with no signs of hardware migration. documented in this encounter Plan of Treatment Care Team Description Date [place] [address] [place] [address] [phone] 02/29/2020 Office Visit Urology documented as of this encounter Visit Diagnoses Not on filedocumented in this encounter Additional Health Concerns Resolved Time Infection Noted Time 04/19/2018 12:13 PM CDT Influenza 08/30/2017 10:13 AM BONE COOKING OPERATOR 08/30/2019 1:09 PM BONE COOKING OPERATOR Influenza - Rule Out 08/30/2019 11:32 AM BONE COOKING OPERATOR 09/17/2019 8:17 AM BONE COOKING OPERATOR RSV 08/31/2019 6:35 PM BONE COOKING OPERATOR documented as of this encounter
--- OUTSIDE RECORDS SUMMARY | 2019-11-28 22:33 | XMS REPORT | Encounter Summary ---
Author Author [facility] Organization [facility] Address Unknown Phone Unavailable Care Team Providers Care Drill Operator Name Role Phone Ebony Sharp MD PCP Encounter Details Care Team Description Date Type Department Adelaida Olivas MD [address] [facility] [address] [place], [place] [id number] 09/16/2016 Hist-Transcript [facility] En[facility] Special[facility] [address] [facility] [address] [place], [place] [id number] Social History Date Tobacco Use Types Packs/Day [...] encounter Progress Notes * Juarez Noble - 09/16/2016 12:05 PM ROUSTABOUT HAND - History of Present Illness Presents today for evaluation of her lower extremity. Patient is 40 days out fro surgery. Her pain has been improving. Her swelling has improved. Examination Physical examination reveals a pleasant 66-year-old woman whose surgical incisio ns are otherwise very well healed. There is no overt evidence of delayed wound healing. She is able to plantar flex and dorsiflex her midfoot with minimal com plaints of pain. Inversion and eversion does not cause her discomfort. Impression Six weeks status post tibiotalar fusion. Plan At this point, we will plan to allow her to be touchdown weightbearing on her le ft lower extremity. I will see her back in three weeks for reevaluation. At at point, we will anticipate weightbearing as tolerated. Past Medical History High Blood Pressure Arthritis [...] SIMVASTATIN 20 MG TABS (SIMVASTATIN) as directed OXYCODONE HCL 5 MG TABS (OXYCODONE HCL) 1 po q 4 hours prn pain NARCAN 4 MG/0.1ML LIQD (NALOXONE HCL) One spray in one nostril. After 2-3 minut es, if breathing does not return to normal, give an additional dose using a new device in the alternate nostril. VITAMIN D (ERGOCALCIFEROL) 78634 UNIT CAPS (ERGOCALCIFEROL) 1 po q weekly VITAMIN C 500 MG TABS (ASCORBIC ACID) 1 po q daily TYLENOL EXTRA STRENGTH 500 MG TABS (ACETAMINOPHEN) 2 tabs po q 8 hours NEURONTIN 100 MG CAPS (GABAPENTIN) 1 po qhs METOCLOPRAMIDE HCL 10 MG TABS (METOCLOPRAMIDE HCL) 1 po q 6 hours prn nausea COLACE 100 MG CAPS (DOCUSATE SODIUM) 1 tab po BID ASPIRIN EC 325 MG TBEC (ASPIRIN) 1 tab po daily OXYCONTIN 10 MG T12A (OXYCODONE HCL) 1 tab bid CYCLOBENZAPRINE HCL 5 MG TABS (CYCLOBENZAPRINE HCL) One, PO, at bedtime as neede d for muscle spasm METFORMIN HCL 1000 MG TABS (METFORMIN HCL) as directed LISINOPRIL 10 MG TABS (LISINOPRIL) 1 tablet daily Allergies: LISINOPRIL (LISINOPRIL) * METFORMIN SULFA (SULFADIAZINE) I have reviewed and concur with the medical, social and family histories collect ed and entered on my behalf, on 09/16/2016. -Adelaida Olivas MD, September 16, 2016 11:41 AM Vital Signs Ht: 62 in. Wt: 236 lbs. T: 97.0 deg F. T site: tympanic BMI: 43.32 She was encourage to talk with her primary care provider about weight management . Radiographs: Three views, Ap, lateral and mortise radiographic views of the left ankle demons trates what appears to be stable tibiotalar fusion. I would like her to return in 3 weeks of their left ankle. Orders from current office visit: Ankle x-ray 3 views Walking Boot pneumatic Jobst stocking below knee PQRS 128a PQRS 317na PQRS 130na * ISharona am scribing for, and in the presence of, Dr. Adelaida Olivas MD . Signed by Adelaida Olivas MD on September 21, 2016 at 2:36 PM X-Ray Report Three views, Ap, lateral and mortise radiographic views of the left ankle demons trates what appears to be stable tibiotalar fusion. documented in this encounter Plan of Treatment Care Team Description Date [place] [address] [place] [address] [phone] 02/29/2020 Office Visit Urology documented as of this encounter Visit Diagnoses Not on filedocumented in this encounter Additional Health Concerns Resolved Time Infection Noted Time 04/19/2018 12:13 PM CDT Influenza 08/30/2017 10:13 AM ROUSTABOUT HAND 08/30/2019 1:09 PM ROUSTABOUT HAND Influenza - Rule Out 08/30/2019 11:32 AM ROUSTABOUT HAND 09/17/2019 8:17 AM ROUSTABOUT HAND RSV 08/31/2019 6:35 PM ROUSTABOUT HAND documented as of this encounter
--- OUTSIDE RECORDS SUMMARY | 2019-11-28 22:33 | XMS REPORT | Encounter Summary ---
Author Author [facility] Organization [facility] Address Unknown Phone Unavailable Care Team Providers Care Platen Press Feeder Name Role Phone Ebony Sharp MD PCP Encounter Details Care Team Description Date Type Department Ebony Sharp MD [address] [facility] [address] [place] [address] [phone] 10/13/2016 Documentation [facility] (walk-in clinic) [address] [facility] [address] [place], [place] [id number] Social History Date Tobacco Use Types Packs/Day [...] Description Date [place] [address] [place] [address] [phone] 02/29/2020 Office Visit Urology documented as of this encounter Visit Diagnoses Not on filedocumented in this encounter
--- OUTSIDE RECORDS SUMMARY | 2019-11-28 22:33 | XMS REPORT | Encounter Summary ---
Author Author [facility] Organization [facility] Address Unknown Phone Unavailable Care Team Providers Care Back Tender Cylinder Name Role Phone Ebony Sharp MD PCP Encounter Details Care Team Description Date Type Department Adelaida Olivas MD [address] [facility] [address] [place], [place] [address] 09/02/2016 Hist-Transcript [facility] ion Encounter Specialists [address] [facility] [address] [place], [place] [id number] Social History Date Tobacco Use Types Packs/Day [...] Progress Notes * Adelaida Olivas MD - 09/04/2016 11:32 AM SENIOR ENGINEER Cast Note A well padded short leg non-weight bearing fiberglass cast was applied. They were informed of precautions, to keep this clean and dry. They are to call the office if there is any incident or issues that arise. OR ENGINEER documented in this encounter Plan of Treatment Care Team Description Date [place] [address] [place] [address] [phone] 02/29/2020 Office Visit Urology documented as of this encounter Visit Diagnoses Not on filedocumented in this encounter Additional Health Concerns Resolved Time Infection Noted Time 04/19/2018 12:13 PM CDT Influenza 08/30/2017 10:13 AM SENIOR ENGINEER 08/30/2019 1:09 PM SENIOR ENGINEER Influenza - Rule Out 08/30/2019 11:32 AM SENIOR ENGINEER 09/17/2019 8:17 AM SENIOR ENGINEER RSV 08/31/2019 6:35 PM SENIOR ENGINEER documented as of this encounter
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
--- OUTSIDE RECORDS SUMMARY | 2019-11-28 22:33 | XMS REPORT | Encounter Summary ---
Author Author [facility] Organization [facility] Address Unknown Phone Unavailable Care Team Providers Care Document Analyst Name Role Phone Ebony Sharp MD PCP Encounter Details Care Team Description Date Type Department Adelaida Olivas MD [address] [facility] [address] [place], [place] [id number] 09/02/2016 Hist-Transcript [facility] ion Encounter Specialists [address] [facility] [address] [place], [place] [id number] Social History Date Tobacco Use Types Packs/Day [...] Progress Notes * Adelaida Olivas MD - 09/02/2016 11:25 AM CONCRETE STONE FABRICATOR - History of Present Illness Presents today for evaluation of her lower extremity. Patient is 26 days out fro m surgery. She has been nonweightbearing. She has no specific complaints. Past Medical History High Blood Pressure Arthritis [...] in the alternate nostril. VITAMIN D (ERGOCALCIFEROL) 67763 UNIT CAPS (ERGOCALCIFEROL) 1 po q weekly [...] ed and entered on my behalf, on 09/02/2016. -Adelaida Olivas MD, September 06, 2016 11:13 AM Prescriptions: OXYCODONE HCL 5 MG TABS (OXYCODONE HCL) 1 po q 4 hours prn pain #60 x 0 Entered by: Sharona Scott Authorized by: Adelaida Olivas MD Signed by: Sharona Scott on 09/02/2016 Method used: Print then Give to Patient RxID: [id number] OXYCONTIN 10 MG T12A (OXYCODONE HCL) 1 tab bid #60 x 0 Entered by: Sharona Scott Authorized by: Adelaida Olivas MD Signed by: Sharona Scott on 09/02/2016 Method used: Print then Give to Patient RxID: [id number] CYCLOBENZAPRINE HCL 5 MG TABS (CYCLOBENZAPRINE HCL) One, PO, at bedtime as neede d for muscle spasm #60 x 0 Entered by: Sharona Scott Authorized by: Adelaida Olivas MD Signed by: Sharona Scott on 09/02/2016 Method used: Print then Give to Patient RxID: [id number] Review of Systems General: Complains of sweats. Eyes: Complains of light sensitivity. Cardiovascular: Complains of swelling of hands or feet, shortness of breath with exertion. Gastrointestinal: Denies loss of appetite, nausea, vomiting, hemorrhoids. Genitourinary: Complains of urinary frequency. Musculoskeletal: Complains of muscle cramps, arthritis. Skin: Complains of night sweats. Neurologic: Complains of numbness, tingling. Psychiatric: Complains of anxiety. Endocrine: Denies cold intolerance, heat intolerance, excessive thirst, excessiv e urination, weight change. Allergic/Immunologic: Complains of seasonal allergies. Vital Signs Ht: 62 in. Wt: 236 lbs. T: 97.8 deg F. T site: tympanic BMI: 43.32 She was encourage to talk with her primary care provider about weight management . Examination Physical examination reveals a 66-year-old woman whose surgical incisions are ot herwise very well healed. There is no overt evidence of delayed wound healing. She is able to plantar flex and dorsiflex her midfoot. Inversion and eversion do not cause her discomfort. Radiographs: Three views, Ap, lateral and mortise radiographic views of the left ankleaccordi ng to patient/family's report (x-rays not available in the office today): demonstrates what appears to be healing ankle arthrodesis. Impression Status post ankle arthrodesis. Plan At this point, we will plan to allow her to be nonweightbearing in a short leg c ast. We will remove her sutures. We will see her back in three weeks for reeva luation. I would like her to return in 2 weeks and obtain a non-weight bearing x-ray of t heir left ankle. We are planning to graduate her to a walking boot at their next office visit Orders from current office visit: Ankle x-ray 3 views Apply short leg cast below knee Short leg cast supplies adult PQRS 128a PQRS 317na PQRS 130na * Signed by Adelaida Olivas MD on September 04, 2016 at 11:32 AM X-Ray Report Three views, Ap, lateral and mortise radiographic views of the left ankleaccordi ng to patient/family's report (x-rays not available in the office today): RETE STONE FABRICATOR documented in this encounter Plan of Treatment Care Team Description Date [place] [address] [place] [address] [phone] 02/29/2020 Office Visit Urology documented as of this encounter Visit Diagnoses Not on filedocumented in this encounter Additional Health Concerns Resolved Time Infection Noted Time 04/19/2018 12:13 PM CDT Influenza 08/30/2017 10:13 AM CONCRETE STONE FABRICATOR 08/30/2019 1:09 PM CONCRETE STONE FABRICATOR Influenza - Rule Out 08/30/2019 11:32 AM CONCRETE STONE FABRICATOR 09/17/2019 8:17 AM CONCRETE STONE FABRICATOR RSV 08/31/2019 6:35 PM CONCRETE STONE FABRICATOR documented as of this encounter
--- OUTSIDE RECORDS SUMMARY | 2019-11-28 22:33 | XMS REPORT | Encounter Summary ---
Author Author [facility] Organization [facility] Address Unknown Phone Unavailable Care Team Providers Care Facing Baster Jumpbasting Name Role Phone Ebony Sharp MD PCP Reason for Visit * Reason Comments Other Encounter Details Care Team Description Date Type Department Ebony Sharp MD [address] [facility] [address] [place] [address] [phone] Other 10/14/2016 Refill [facility] (walk-in clinic) [address] [facility] [address] [place], [place] [id number] Social History Date Tobacco Use Types Packs/Day [...] Description Date [place] [address] [place] [address] [phone] 02/29/2020 Office Visit Urology documented as of this encounter Visit Diagnoses Not on filedocumented in this encounter
--- OUTSIDE RECORDS SUMMARY | 2019-11-28 22:33 | XMS REPORT | Encounter Summary ---
Author Author [facility] Organization [facility] Address Unknown Phone Unavailable Care Team Providers Care Mri Assistant Name Role Phone Ebony Sharp MD PCP Encounter Details Care Team Description Date Type Department Adelaida Olivas MD [address] [facility] [address] [place] [address] 10/08/2016 Hist-Telephone [facility] [address] [facility] [address] [place], [place] [id number] Social History Date Tobacco Use Types Packs/Day [...] Clinic Note - Adelaida Olivas MD - 10/08/2016 2:01 PM MARKETING PROGRAMS MANAGER Phone Note Other Incoming Call Summary of call: Received a call from Eric with [facility]'s pharmacy. He is [place] avel[place] for clarification on the MS Contin 15 mg the patient was prescribed today. Th e patient filled Oxycontin 10 mg & Oxycodone 5 mg on 09/20/2016. Eric is asking if the patient is to take the MS Contin in addition to the Oxycontin and Oxycodone or is this to replace these medications? He is needing clarification from our office before he can fill the script for the patient. Please call Eric back at [phone]. Call taken by: Malcolm Sam on October 08, 2016 2:03 PM Follow-up for Phone Call Follow-up Details: Per Brendon arambula, ms contin is to replace the oxycontin. Spoke to eric and relayed the message. Follow-up by: Geraldine Neves on October 08, 2016 4:46 PM ETING PROGRAMS MANAGER documented in this encounter Plan of Treatment Care Team Description Date [place] [address] [address] [phone] 02/29/2020 Office Visit Urology documented as of this encounter Visit Diagnoses Not on filedocumented in this encounter Additional Health Concerns Resolved Time Infection Noted Time 04/19/2018 12:13 PM CDT Influenza 08/30/2017 10:13 AM MARKETING PROGRAMS MANAGER 08/30/2019 1:09 PM MARKETING PROGRAMS MANAGER Influenza - Rule Out 08/30/2019 11:32 AM MARKETING PROGRAMS MANAGER 09/17/2019 8:17 AM MARKETING PROGRAMS MANAGER RSV 08/31/2019 6:35 PM MARKETING PROGRAMS MANAGER documented as of this encounter
--- OUTSIDE RECORDS SUMMARY | 2019-11-28 22:33 | XMS REPORT | Encounter Summary ---
Author Author [facility] Organization [facility] Address Unknown Phone Unavailable Care Team Providers Care Child Guidance Counselor Name Role Phone Ebony Sharp MD PCP Encounter Details Care Team Description Date Type Department Ebony Sharp MD [address] [facility] [address] [place] [address] [phone] 09/09/2016 Documentation [facility] (walk-in clinic) [address] [facility] [address] [place], [place] [id number] Social History Date Tobacco Use Types Packs/Day [...] Description Date [place] [address] [place] [address] [phone] 02/29/2020 Office Visit Urology documented as of this encounter Visit Diagnoses Not on filedocumented in this encounter
--- OUTSIDE RECORDS SUMMARY | 2019-11-28 22:33 | XMS REPORT | Encounter Summary ---
Author Author [facility] Organization [facility] Address Unknown Phone Unavailable Care Team Providers Care Machine Set Up Technician Name Role Phone Ebony Sharp MD PCP Encounter Details Care Team Description Date Type Department Adelaida Olivas MD [address] [facility] [address] [place], [place] [id number] 10/08/2016 Hist-Transcript [facility] [address] [facility] [address] [place], [place] [id number] Social History Date Tobacco Use Types Packs/Day [...] encounter Progress Notes * Juarez Noble - 10/08/2016 12:30 PM HOME COMFORT ADVISOR - History of Present Illness Presents today for evaluation of her left lower extremity. Examination Physical examination reveals a pleasant 66-year-old woman who notes some swellin g throughout the lateral aspect of her left ankle. Her skin is otherwise intact . There is no overt evidence of delayed wound healing. She is able to plantar flex and dorsiflex her midfoot with minimal complaints of pain. Impression Status post ankle arthrodesis with persistent pain and swelling. Plan At this point, we did discuss CT scan in the future. We will place her on MS Ok ntin. She will continue her guarded weightbearing status. We will see her back in three [...] in the alternate nostril. VITAMIN D (ERGOCALCIFEROL) 43191 UNIT CAPS (ERGOCALCIFEROL) 1 po q weekly [...] ed and entered on my behalf, on 10/08/2016. -Adelaida Olivas MD, October 10, 2016 5:20 PM Prescriptions: MS CONTIN 15 MG CR-TABS (MORPHINE SULFATE) Take 1 tablet every 8 hours as needed for pain #90 Undefined x 0 Entered by: Sharona Scott Authorized by: Adelaida Olivas MD Signed by: Sharona Scott on 10/08/2016 Method used: Print then Give to Patient RxID: [id number] Vital Signs BMI: 43.32 She was encourage to talk with her primary care provider about weight management . Radiographs: Three views, Ap, lateral and oblique radiographic views of the left ankle demons trates what appears to be reasonable ankle arthrodesis. and obtain a weight bearing x-ray of their left ankle. Orders from current office visit: Ankle x-ray 3 views PQRS 128a PQRS 317na PQRS 130na * Signed by Adelaida Olivas MD on October 09, 2016 at 2:57 PM X-Ray Report Three views, Ap, lateral and oblique radiographic views of the left ankle demons trates what appears to be reasonable ankle arthrodesis. documented in this encounter Plan of Treatment Care Team Description Date [place] [address] [place] [address] [phone] 02/29/2020 Office Visit Urology documented as of this encounter Visit Diagnoses Not on filedocumented in this encounter Additional Health Concerns Resolved Time Infection Noted Time 04/19/2018 12:13 PM CDT Influenza 08/30/2017 10:13 AM HOME COMFORT ADVISOR 08/30/2019 1:09 PM HOME COMFORT ADVISOR Influenza - Rule Out 08/30/2019 11:32 AM HOME COMFORT ADVISOR 09/17/2019 8:17 AM HOME COMFORT ADVISOR RSV 08/31/2019 6:35 PM HOME COMFORT ADVISOR documented as of this encounter
--- OUTSIDE RECORDS SUMMARY | 2019-11-28 22:33 | XMS REPORT | Encounter Summary ---
Author Author [facility] Organization [facility] Address Unknown Phone Unavailable Care Team Providers Care Icing Mixer Name Role Phone Ebony Sharp MD PCP Encounter Details Care Team Description Date Type Department Adelaida Olivas MD [address] [facility] [address] [place] [address] [phone] 09/16/2016 Hist-Other [facility] [address] [place] [address] Social History Date Tobacco Use Types Packs/Day [...] Description Date [place] [address] [place] [address] [phone] 02/29/2020 Office Visit Urology documented as of this encounter Procedures Comments Procedure Name Priority Date/Time Associated Diag nosis XR ANKLE LEFT Routine 09/16/2016 11:56 AM SCREEN PRINTING SUPERVISOR documented in this encounter Results * XR Ankle left (09/16/2016 11:56 AM SCREEN PRINTING SUPERVISOR) Specimen Performing Organization Address [facility] Ph one Number LEVI documented in this encounter Visit Diagnoses Not on filedocumented in this encounter Additional Health Concerns Resolved Time Infection Noted Time 04/19/2018 12:13 PM CDT Influenza 08/30/2017 10:13 AM SCREEN PRINTING SUPERVISOR documented as of this encounter
--- OUTSIDE RECORDS SUMMARY | 2019-11-28 22:33 | XMS REPORT | Encounter Summary ---
Author Author [facility] Organization [facility] Address Unknown Phone Unavailable Care Team Providers Care Programmer Engineering And Scientific Name Role Phone Ebony Sharp MD PCP Reason for Visit * Reason Comments Follow-up Margot/ lft ankle / ok per Al leila/ 10/29/2016 cmlTVX: Appt. Reminder (10/29/2016 06:19 PM) Phone Call - Mess age Delivered (X=Answering Machine) Encounter Details Care Team Description Date Type Department Mendy Carpenter PA-C [address] [address] [phone] 11/02/2016 Hist[facility]ointmen [facility] [address] [address] [place] [address] Social History Date Tobacco Use Types Packs/Day [...] Description Date [place] [address] [place] [address] [phone] 02/29/2020 Office Visit Urology documented as of this encounter Visit Diagnoses Not on filedocumented in this encounter Additional Health Concerns Resolved Time Infection Noted Time 04/19/2018 12:13 PM CDT Influenza 08/30/2017 10:13 AM WOODWORKING MACHINE OFFBEARER documented as of this encounter
--- OUTSIDE RECORDS SUMMARY | 2019-11-28 22:33 | XMS REPORT | Encounter Summary ---
Author Author [facility] Organization [facility] Address Unknown Phone Unavailable Care Team Providers Care Truck Body Repairer Name Role Phone Ebony Sharp MD PCP Reason for Visit * Reason Comments Follow-up Margot lt ankle/ 10/02/16 ndT VX: Appt. Reminder (10/06/2016 06:59 PM) Phone Call - Message Delivered (X=Answering [place]) Encounter Details Care Team Description Date Type Department Adelaida Olivas MD [address] [facility] [address] [place] [address] [phone] 10/08/2016 Hist-Appointmen [facility] [address] [facility] [address] [place] [address] Social History Date Tobacco Use Types Packs/Day [...] Description Date [place] [address] [place] [address] [phone] 02/29/2020 Office Visit Urology documented as of this encounter Visit Diagnoses Not on filedocumented in this encounter Additional Health Concerns Resolved Time Infection Noted Time 04/19/2018 12:13 PM CDT Influenza 08/30/2017 10:13 AM HOT BILLET SHEAR OPERATOR documented as of this encounter
--- OUTSIDE RECORDS SUMMARY | 2019-11-28 22:33 | XMS REPORT | Encounter Summary ---
Author Author [facility] Organization [facility] Address Unknown Phone Unavailable Care Team Providers Care Security Clerk Name Role Phone Ebony Sharp MD PCP Reason for Visit * Reason Comments Follow-up NCrt knee prothesis chip, r t leg and swelling and pain/DOI: 10/08/2016/ seen at [email or web address]/ [email or web address] /Insurance M [employer] / ok per Selene/ 10/09/2016 cml Encounter Details Care Team Description Date Type Department Wyatt Santacruz MD [address] [facility] [address] [place] [address] [phone] 10/12/2016 Hist[facility]ointmen [facility] [address] [facility] [address] [place] [address] Social History Date Tobacco Use Types Packs/Day [...] Description Date [place] [address] [place] [address] [phone] 02/29/2020 Office Visit Urology documented as of this encounter Visit Diagnoses Not on filedocumented in this encounter Additional Health Concerns Resolved Time Infection Noted Time 04/19/2018 12:13 PM CDT Influenza 08/30/2017 10:13 AM ELECTRONEURODIAGNOSTIC TECHNOLOGIST documented as of this encounter
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
--- OUTSIDE RECORDS SUMMARY | 2019-11-28 22:33 | XMS REPORT | Encounter Summary ---
Author Author [facility] Organization [facility] Address Unknown Phone Unavailable Care Team Providers Care Miller Helper Name Role Phone Ebony Sharp MD PCP Encounter Details Care Team Description Date Type Department Ebony Sharp MD [address] [facility] [address] [place] [address] [phone] 10/30/2016 Documentation [facility] (walk-in clinic) [address] [facility] [address] [place], [place] [id number] Social History Date Tobacco Use Types Packs/Day [...] Description Date [place] [address] [place] [address] [phone] 02/29/2020 Office Visit Urology documented as of this encounter Visit Diagnoses Not on filedocumented in this encounter
--- OUTSIDE RECORDS SUMMARY | 2019-11-28 22:33 | XMS REPORT | Encounter Summary ---
Author Author [facility] Organization [facility] Address Unknown Phone Unavailable Care Team Providers Care Good Humor Vendor Name Role Phone Ebony Sharp MD PCP Encounter Details Care Team Description Date Type Department Adelaida Olivas MD [address] [facility] [address] [place] [address] [phone] 10/08/2016 Hist-Other [facility] [address] [place] [address] Social History Date Tobacco Use Types Packs/Day [...] Description Date [place] [address] [place] [address] [phone] 02/29/2020 Office Visit Urology documented as of this encounter Procedures Comments Procedure Name Priority Date/Time Associated Diag nosis XR ANKLE LEFT Routine 10/08/2016 12:34 PM GAS CHARGER documented in this encounter Results * XR Ankle left (10/08/2016 12:34 PM GAS CHARGER) Specimen Performing Organization Address [facility] Ph one Number LEVI documented in this encounter Visit Diagnoses Not on filedocumented in this encounter Additional Health Concerns Resolved Time Infection Noted Time 04/19/2018 12:13 PM CDT Influenza 08/30/2017 10:13 AM GAS CHARGER documented as of this encounter
--- OUTSIDE RECORDS SUMMARY | 2019-11-28 22:33 | XMS REPORT | Encounter Summary ---
Author Author [facility] Organization [facility] Address Unknown Phone Unavailable Care Team Providers Care Broth Setter Name Role Phone Ebony Sharp MD PCP Encounter Details Care Team Description Date Type Department Adelaida Olivas MD [address] [facility] [address] [place] [address] [phone] 09/02/2016 Hist-Other [facility] [address] [place] [address] Social History Date Tobacco Use Types Packs/Day [...] Description Date [place] [address] [place] [address] [phone] 02/29/2020 Office Visit Urology documented as of this encounter Procedures Comments Procedure Name Priority Date/Time Associated Diag nosis XR ANKLE Routine 09/02/2016 11:31 AM PILL COATER documented in this encounter Results * XR Ankle (09/02/2016 11:31 AM PILL COATER) Specimen Performing Organization Address City/State/Zipcode Ph one Number LEVI documented in this encounter Visit Diagnoses Not on filedocumented in this encounter Additional Health Concerns Resolved Time Infection Noted Time 04/19/2018 12:13 PM CDT Influenza 08/30/2017 10:13 AM PILL COATER documented as of this encounter
--- OUTSIDE RECORDS SUMMARY | 2019-11-28 22:33 | XMS REPORT | Encounter Summary ---
Author Author [facility] Organization [facility] Address Unknown Phone Unavailable Care Team Providers Care Reclamation Kettle Tender Name Role Phone Ebony Sharp MD PCP Reason for Visit * Reason Comments Follow-up eldon left ankle // sm 09/02TVX: Appt. Reminder (09/14/2016 06:56 PM) Phone Call - Responded "Yes" (Y=Answere d - Yes) Encounter Details Care Team Description Date Type Department Adelaida Olivas MD [address] [facility] [address] [place] [address] [phone] 09/16/2016 Hist-Appointmen [facility] [address] [facility] [address] [place] [address] Social History Date Tobacco Use Types Packs/Day [...] Description [place] [address] [place] [address] [phone] 02/29/2020 Office Visit Urology documented as of this encounter Visit Diagnoses Not on filedocumented in this encounter Additional Health Concerns Resolved Time Infection Noted Time 04/19/2018 12:13 PM CDT Influenza 08/30/2017 10:13 AM ELECTRICAL PROSPECTING ENGINEER documented as of this encounter
--- OUTSIDE RECORDS SUMMARY | 2019-11-28 22:34 | XMS REPORT | Encounter Summary ---
Author Author [facility] Organization [facility] Address Unknown Phone Unavailable Care Team Providers Care Construction Code Administrator Name Role Phone Ebony Sharp MD PCP Reason for Visit * Reason Comments Follow-up [facility] Post op per Mendy Encounter Details Care Team Description Date Type Mendy Mckenzie PA-C [address] [address] [phone] 08/11/2016 [facility]Appoint[facility] [address] [facility] [address] [place] [address] Social History Date Tobacco Use Types Packs/Day [...] Description Date [place] [address] [place] [address] [phone] 02/29/2020 Office Visit Urology documented as of this encounter Visit Diagnoses Not on filedocumented in this encounter Additional Health Concerns Resolved Time Infection Noted Time 04/19/2018 12:13 PM CDT Influenza 08/30/2017 10:[address] CLERK documented as of this encounter
--- OUTSIDE RECORDS SUMMARY | 2019-11-28 22:34 | XMS REPORT | Encounter Summary ---
Author Author [facility] Organization [facility] Address Unknown Phone Unavailable Care Team Providers Care Nanotechnology Engineering Technician Name Role Phone Ebony Sharp MD PCP Encounter Details Care Team Description Date Type Department Adelaida Olivas MD [address] [facility] [address] [place] [address] [phone] 08/18/2016 Hist-Other [facility] [address] [place] [address] Social History Date Tobacco Use Types Packs/Day [...] Description Date [place] [address] [place] [address] [phone] 02/29/2020 Office Visit Urology documented as of this encounter Procedures Comments Procedure Name Priority Date/Time Associated Diag nosis XR ANKLE Routine 08/18/2016 1:24 PM TILE PICKER documented in this encounter Results * XR Ankle (08/18/2016 1:24 PM TILE PICKER) Specimen Performing Organization Address City/State/Zipcode Ph one Number LEVI documented in this encounter Visit Diagnoses Not on filedocumented in this encounter Additional Health Concerns Resolved Time Infection Noted Time 04/19/2018 12:13 PM CDT Influenza 08/30/2017 10:13 AM TILE PICKER documented as of this encounter
--- OUTSIDE RECORDS SUMMARY | 2019-11-28 22:34 | XMS REPORT | Encounter Summary ---
Author Author [facility] Organization [facility] Address Unknown Phone Unavailable Care Team Providers Care Local Area Network Administrator Name Role Phone Ebony Sharp MD PCP Encounter Details Care Team Description Date Type Department [place] 08/11/2016 Hist-Transcript [place] [facility] Encounter Specialists [address] [facility] [address] [place], [place] [address] Social History Date Tobacco Use Types Packs/Day Years Used Quit: 09/14/2009 Former Smoker Smokeless Tobacco: Never Used Drinks/Week oz/Week Comments Alcohol Use No Sex Assigned at Date Recorded Female Industry Job Start Date Occupation Not on file Not on file Not on file Travel End Travel History Travel Start No recent travel history available. documented as of this encounter Progress Notes * [place] - 08/11/2016 2:07 PM BAFFLE INSTALLER - History of Present Illness The patient presents for followup status post left tibiotalar arthrodesis. She reports that she has done poorly since her previous visit. [facility] when she had pain through her splint. Addition ally, she reports that they placed her into another splint. She has had uncontr ollable pain since the time of her surgery. She is requesting pain patches to h elp control her postoperative pain. She has been compliant with her aspirin the rapy. Family History Summary: Reviewed history and no changes required: 08/28/2016 No Known Family History - Entered On: [...] Status: Lives with: children Children: 1 child Medication list: ALBUTEROL SULFATE 1.25 MG/3ML NEBU (ALBUTEROL SULFATE) as directed PROAIR HFA 108 (90 BASE) MCG/ACT AERS (ALBUTEROL SULFATE) as directed AMITRIPTYLINE HCL 25 MG TABS (AMITRIPTYLINE HCL) as directed AMLODIPINE BESYLATE 2.5 MG TABS (AMLODIPINE BESYLATE) as directed ADULT ASPIRIN EC LOW STRENGTH 81 MG TBEC (ASPIRIN) as directed CELEXA 20 MG TABS (CITALOPRAM HYDROBROMIDE) as directed FAMOTIDINE 20 MG TABS (FAMOTIDINE) as directed BREO ELLIPTA 200-25 MCG/INH AEPB [...] in the alternate nostril. VITAMIN D (ERGOCALCIFEROL) 90428 UNIT CAPS (ERGOCALCIFEROL) 1 po q weekly [...] MG T12A (OXYCODONE HCL) 1 tab bid BACTRIM DS 800-160 MG TABS (SULFAMETHOXAZOLE-TRIMETHOPRIM) 1 tab q 12 hours Allergies: LISINOPRIL (LISINOPRIL) * METFORMIN SULFA (SULFADIAZINE) I have reviewed and concur with the medical, social and family histories collect ed and entered on my behalf, on 08/11/2016. -Mendy Hall PA-C, August 11, 2016 2:27 PM Prescriptions: BACTRIM DS 800-160 MG TABS (SULFAMETHOXAZOLE-TRIMETHOPRIM) 1 tab q 12 hours #20 [Tablet] x 0 Entered and Authorized by: Mendy Hall PA-C Signed by: Mendy Hall PA-C on 08/11/2016 Method used: [facility] (retail) [address] [place] [address] Ph: [phone] Fax: [phone] RxID: [id number] OXYCONTIN 10 MG T12A (OXYCODONE HCL) 1 tab bid #14 Tablet x 0 Entered by: Mendy Hall PA-C Authorized by: Adelaida Olivas MD Signed by: Mendy Hall PA-C on 08/11/2016 Method used: Print then Give to Patient RxID: [id number] Review of Systems General: Complains of weight gain, fatigue. Eyes: Complains of vision loss 1 eye. Cardiovascular: Complains of shortness of breath with exertion. Respiratory: Complains of shortness of breath. Gastrointestinal: Denies loss of appetite, nausea, vomiting, hemorrhoids. Genitourinary: Denies urinary urgency, urinary frequency. Musculoskeletal: Complains of joint pain, joint swelling, arthritis. Skin: Denies night sweats, dryness, suspicious lesions, changes in nail beds, un usual hair distribution, changes in color of skin, poor wound healing. Neurologic: Complains of headaches, numbness, tingling. Psychiatric: Complains of depression. Endocrine: Denies cold intolerance, heat intolerance, excessive thirst, excessiv e urination, weight change. Heme/Lymphatic: Denies abnormal bruising, fevers. Allergic/Immunologic: Complains of seasonal allergies. Vital Signs Ht: 60 in. Wt: 224 lbs. T site: tympanic BMI: 43.91 She was encourage to talk with her primary care provider about weight management . Examination The patient is alert, oriented, and in no acute distress. Moderate edema presen t throughout the forefoot, midfoot, and ankle. Surgical wounds are closed with nylon suture and mild surrounding erythema with active drainage. Mild calf pain present. Posterior compartment of leg is somewhat taut. Capillary refill not assessed due to nail tongan. Radiographs: No imaging was obtained at todays visit. Impression A 65-year-old woman status post left ankle arthroscopy with tibiotalar arthrodes is. Plan At this point, we will send her for Doppler ultrasound to rule out a blood clot. Additionally, we will provide her with one week of OxyContin. Upon completion of the ultrasound, she will return to be placed into a splint. We will place h er on a course of antibiotics. She will follow up with us in seven days. . I would like her to return in 7 days and obtain a non-weight bearing x-ray of th eir left ankle. Orders from current office visit: PQRS 128a PQRS 317na PQRS 130 CQM68 PQRS 41 Walking Boot pneumatic Apply short leg splint Short leg splint supplies adult miscellaneous * documented in this encounter Plan of Treatment Care Team Description [place] [address] [place] [address] [phone] 02/29/2020 Office Visit Urology documented as of this encounter Visit Diagnoses Not on filedocumented in this encounter Additional Health Concerns Resolved Time Infection Noted Time 04/19/2018 12:13 PM CDT Influenza 08/30/2017 10:13 AM BAFFLE INSTALLER 08/30/2019 1:09 PM BAFFLE INSTALLER Influenza - Rule Out 08/30/2019 11:32 AM BAFFLE INSTALLER 09/17/2019 8:17 AM BAFFLE INSTALLER RSV 08/31/2019 6:35 PM BAFFLE INSTALLER documented as of this encounter
--- OUTSIDE RECORDS SUMMARY | 2019-11-28 22:34 | XMS REPORT | Encounter Summary ---
Author Author [facility] Organization [facility] Address Unknown Phone Unavailable Care Team Providers Care Corporate Lawyer Name Role Phone Ebony Sharp MD PCP Encounter Details Care Team Description Date Type Department Adelaida Olivas MD [address] [facility] [address] [place] [address] 08/07/2016 [facility]Transcript [facility] En[facility] Specialists [address] [facility] [address] [place], [place] [address] Social History Date Tobacco Use Types Packs/Day [...] Operative Note - Adelaida Olivas MD - 08/11/2016 11:47 AM SALES PLANNING COORDINATOR Operative Report Left Ankle Imported By: Socorro Lehman 08/11/2016 11:47:08 AM External Attachment: Type: Image Comment: External Document S PLANNING COORDINATOR documented in this encounter Plan of Treatment Care Team Description [place] [address] [place] [address] [phone] 02/29/2020 Office Visit Urology documented as of this encounter Visit Diagnoses Not on filedocumented in this encounter Additional Health Concerns Resolved Time Infection Noted Time 04/19/2018 12:13 PM CDT Influenza 08/30/2017 10:13 AM SALES PLANNING COORDINATOR 08/30/2019 1:09 PM SALES PLANNING COORDINATOR Influenza - Rule Out 08/30/2019 11:32 AM SALES PLANNING COORDINATOR 09/17/2019 8:17 AM SALES PLANNING COORDINATOR RSV 08/31/2019 6:35 PM SALES PLANNING COORDINATOR documented as of this encounter
--- OUTSIDE RECORDS SUMMARY | 2019-11-28 22:34 | XMS REPORT | Encounter Summary ---
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 Care Christmas Tree Grower Name Role Phone Ebony Sharp MD PCP Encounter Details Care Team Description Date Type Department Adelaida Olivas MD [address] [facility] [address] [place], [place] [address] 08/18/2016 Hist[facility]Transcript [facility] Encounter Specialists [address] [facility] [address] [place], [place] [address] Social History Date Tobacco Use Types Packs/Day [...] encounter Progress Notes * Juarez Noble - 08/18/2016 3:21 PM WINDOWS SYSTEMS ADMIN - History of Present Illness Presents today for evaluation of her lower extremity. Patient is 11 days out fro m surgery. She has been doing better with her pain since changing her pain medic ation. Family History Summary: Reviewed history and no changes required: 08/30/2016 No Known Family History - Entered On: 05/26/2016 Past Medical History High Blood Pressure Arthritis Osteoporosis COPD / Emphysema Diabetes Surgical History Surgical history includes Appendectomy Tonsillectomy Section(1) Gallbladder(laparoscopic) D & C(single) Hysterectomy(complete) Total Knee Replacement(bilateral) Arthroscopic Knee(bilateral). Left ankle arthroscopy,open fusions,tendons release,subtalar debridement 6. Risk Factors Tobacco Use: Former smoker Social History Marital Status: Lives with: children [...] in the alternate nostril. VITAMIN D (ERGOCALCIFEROL) 40227 UNIT CAPS (ERGOCALCIFEROL) 1 po q weekly [...] TABS (SULFAMETHOXAZOLE-TRIMETHOPRIM) 1 tab q 12 hours AUGMENTIN 875-125 MG TABS (AMOXICILLIN-POT CLAVULANATE) 1 tab bid Allergies: LISINOPRIL (LISINOPRIL) * METFORMIN SULFA (SULFADIAZINE) I have reviewed and concur with the medical, social and family histories collect ed and entered on my behalf, on 08/18/2016. -Adelaida Olivas MD, August 18, 2016 2:12 PM Prescriptions: OXYCODONE HCL 5 MG TABS (OXYCODONE HCL) 1 po q 4 hours prn pain #60 x 0 Entered by: Sharona Scott Authorized by: Adelaida Olivas MD Signed by: Sharona Scott on 08/18/2016 Method used: Print then Give to Patient RxID: [id number] OXYCONTIN 10 MG T12A (OXYCODONE HCL) 1 tab bid #60 x 0 Entered by: Sharona Scott Authorized by: Adelaida Olivas MD Signed by: Sharona Scott on 08/18/2016 Method used: Print then Give to Patient RxID: [id number] Vital Signs Ht: 60 in. Wt: 224 lbs. T site: tympanic BMI: 43.91 She was encourage to talk with her primary care provider about weight management . BP: 120/80 Examination Physical examination reveals a pleasant 66-year-old woman with some tenderness a nd cramping throughout the course of her calf. Her skin is otherwise intact. T here is no overt evidence of delayed wound healing. She is otherwise able to pl dirk flex, dorsiflex, invert, and gorge her foot with complaints to her midfoot . She has a nice palpable dorsalis pedis pulse. Her surgical incision is other sainz very well healed. Radiographs: X-ray examination demonstrates arthrodesis of tibiotalar joint with some calf sw elling and complaints of cramping. Impression A 66-year-old woman status post left ankle arthroscopy with tibiotalar arthrodes is. Plan At this point, we will plan to allow her to be nonweightbearing in a short leg c ast. I will see her back in three weeks for reevaluation. We did discuss an ul trasound for further evaluation. . I would like her to return in 2 weeks and obtain a non-weight bearing x-ray of t heir left ankle. Orders from current office visit: Ankle x-ray 3 views Apply short leg cast below knee Short leg cast supplies adult PQRS 128a PQRS 317n PQRS 130 CQM68 * Sharona Bustos am scribing for, and in the presence of, Dr. Adelaida Olivas MD . Signed by Adelaida Olivas MD on August 27, 2016 at 8:57 AM X-Ray Report X-ray examination demonstrates arthrodesis of tibiotalar joint with some calf sw elling and complaints of cramping. documented in this encounter Plan of Treatment Care Team Description Date [place] [address] [address] [phone] 02/29/2020 Office Visit Urology documented as of this encounter Visit Diagnoses Not on filedocumented in this encounter Additional Health Concerns Resolved Time Infection Noted Time 04/19/2018 12:13 PM CDT Influenza 08/30/2017 10:13 AM WINDOWS SYSTEMS ADMIN 08/30/2019 1:09 PM WINDOWS SYSTEMS ADMIN Influenza - Rule Out 08/30/2019 11:32 AM WINDOWS SYSTEMS ADMIN 09/17/2019 8:17 AM WINDOWS SYSTEMS ADMIN RSV 08/31/2019 6:35 PM WINDOWS SYSTEMS ADMIN documented as of this encounter
--- OUTSIDE RECORDS SUMMARY | 2019-11-28 22:34 | XMS REPORT | Encounter Summary ---
Author Author [facility] Organization [facility] Address Unknown Phone Unavailable Care Team Providers Care Pattern Cleaner Name Role Phone Ebony Sharp MD PCP Encounter Details Care Team Description Date Type Department [place], Historical 08/13/2016 Hist-Telephone [place] [facility] [address] [facility] [address] [place], [place] [address] Social History Date Tobacco Use Types Packs/Day [...] encounter Miscellaneous Notes * Clinic Note - [facility] - 08/13/2016 2:52 PM TAILOR WOMEN'S GARMENT ALTERATION Phone Note Call from Pharmacy Caller: [facility] Call For: Mendy Hall Summary of call: Patient allergic to sulfa. Need a different antibiotic. Per Nadia dmoinguez - change to Augmentin 875 mg 1 tab BID #20. New script sent to pharmacy. Call taken by: Alec Jimenez on August 13, 2016 2:53 PM Prescriptions: AUGMENTIN 875-125 MG TABS (AMOXICILLIN-POT CLAVULANATE) 1 tab bid #20[Tablet] x 0 Entered by: Alec Jimenez Authorized by: Mendy Hall PA-C Signed by: Alec Jimenez on 08/13/2016 Method used: Electronically to [facility]* (retail) [address] [place] [address] Ph: [phone] Fax: [phone] RxID: [id number] documented in this encounter Plan of Treatment Care Team Description Date [place] [address] [place] [address] [place] [address] [phone] 02/29/2020 Office Visit Urology documented as of this encounter Visit Diagnoses Not on filedocumented in this encounter Additional Health Concerns Resolved Time Infection Noted Time 04/19/2018 12:13 PM CDT Influenza 08/30/2017 10:13 AM TAILOR WOMEN'S GARMENT ALTERATION 08/30/2019 1:09 PM TAILOR WOMEN'S GARMENT ALTERATION Influenza - Rule Out 08/30/2019 11:32 AM TAILOR WOMEN'S GARMENT ALTERATION 09/17/2019 8:17 AM TAILOR WOMEN'S GARMENT ALTERATION RSV 08/31/2019 6:35 PM TAILOR WOMEN'S GARMENT ALTERATION documented as of this encounter
--- OUTSIDE RECORDS SUMMARY | 2019-11-28 22:34 | XMS REPORT | Encounter Summary ---
Author Author [facility] Organization [facility] Address Unknown Phone Unavailable Care Team Providers Care Dog Races Manager Name Role Phone Ebony Sharp MD PCP Reason for Referral * Diagnostic Imaging (Routine) Referred By Contact Referred To Contact Status Reason Specialty Diagnoses / Procedures Mendy Carpenter PA-C [address] [address] Closed Diagnoses Left ankle pain P rocedures US Venous Duplex Lower Extremity left Reason for Visit * Diagnostic Imaging (Routine) Referred By Contact Referred To Contact Status Reason Specialty Diagnoses / Procedures Mendy Carpenter PA-C [address] [address] Closed Diagnoses Left ankle pain P rocedures US Venous Duplex Lower Extremity left Encounter Details Care Team Description Date Type Department Mendy Carpenter PA-C [address] [address] [phone] Left ankle pain 08/11/2016 [facility] [address] [place], [place] [address] Social History Date Tobacco Use Types Packs/Day [...] tablet (20 mg total) by mouth daily. 02/14/2016 04/08/2017 fluticasone-vilanterol Inhale 1 puff 3 each 3 (BREO ELLIPTA) 200-25 daily. mcg/actuation INHALERIndications: maintenance therapy for asthma 02/14/2016 02/18/2017 gabapentin (NEURONTIN) Take 1 270 capsule 3 300 MG capsule capsule (300 mg total) by mouth 3 (three) times a day. 10/08/2016 HYDROcodone-acetaminophen Take 1 tablet 0 (NORCO) 5-325 mg per by mouth tablet every 6 (six) hours as needed for pain. 12/02/2015 11/05/2016 insulin syringe-needle Type 2 100 each 0 U-100 0.3 mL 31 x /" diabetes Syrg E11.9 07/20/2016 09/09/2016 LANTUS 100 unit/mL INJECT 15 10 mL [...] Description Date [place] [address] [place] [address] [phone] 02/29/2020 Office Visit Urology documented as of this encounter Procedures Comments Procedure Name Priority Date/Time Associated Diag nosis US VENOUS DUPLEX LOWER Routine 08/11/2016 Left an kle pain EXTREMITY LEFT 3:39 PM FITNESS AND WELLNESS INSTRUCTOR documented in this encounter Results * US Venous Duplex Lower Extremity left (08/11/2016 3:39 PM FITNESS AND WELLNESS INSTRUCTOR) Specimen Impressions Performed At No left lower extremity DVT. LEVI READING SITE: [facility] Narrative Performed At Patient: ISIAH BENÍTEZ Ernestina SIMS Sex#: F # [id number] Jose#: [id number] Location: [facility] Procedure Requested: [id number] US VENOU S DUPLEX LOWER EXTREMITY LEFT Reason for Exam: Left ankle pain Exam Ordered: 08/11/2016 1 506 Exam Date/Time: 08/11/2016 15 39 Begin exam date/time: 08/11/2016 15 09 US VENOUS DUPLEX LOWER EXTREMITY LEFT HISTORY: Pain TECHNIQUE: Ultrasound duplex and colo r doppler flow images of the left lower extremity venous system was perfo rmed. FINDINGS: All visualized segmen ts of the common femoral, greater saphenous, superficial femoral, profund a femoris, popliteal vein are patent with good compressibility and au gmentation. The calf veins are patent. Procedure Note Interface, Rad Results In - 08/11/2016 3:51 PM FITNESS AND WELLNESS INSTRUCTOR Patient: ISIAH BENÍTEZ Sex#: F # [id number] Jose#: [id number] Location: [facility] US Procedure Requested: [id number] US VENOUS DUPLEX LOWER EXTREMITY LEFT Reason for Exam: Left ankle pain Exam Ordered: 08/11/2016 1506 Exam Date/Time: 08/11/2016 1539 Begin exam date/time: 08/11/2016 1509 US VENOUS DUPLEX LOWER EXTREMITY LEFT HISTORY: Pain TECHNIQUE: Ultrasound duplex and color doppler flow images of the left lower extremity venous system was performed. FINDINGS: All visualized segments of the common femoral, greater saphenous, superficial femoral, profunda femoris, popliteal vein are patent with good compressibility and augmentation. The calf veins are patent. IMPRESSION No left lower extremity DVT. READING SITE: [facility] Address City/State/Zipcode Ph one Number LEVI documented in this encounter Visit Diagnoses Diagnosis Left ankle pain Pain in joint, ankle and foot documented in this encounter
--- OUTSIDE RECORDS SUMMARY | 2019-11-28 22:34 | XMS REPORT | Encounter Summary ---
Author Author [facility] Organization [facility] Address Unknown Phone Unavailable Care Team Providers Care Passenger Car Cleaning Supervisor Name Role Phone Ebony Sharp MD PCP Encounter Details Care Team Description Date Type Department Adelaida Olivas MD [address] [facility] [address] [place] [address] 08/07/2016 [facility] [address] [facility] [address] [place], [place] [id number] Social History Date Tobacco Use Types Packs/Day [...] Clinic Note - Adelaida Olivas MD - 08/07/2016 2:27 PM LEASES AND LAND SUPERVISOR Phone Note Call from Pharmacy Summary of call: kena [phone], patient getting [place] / from Dr Arnav rosas with pain centers [phone], 1 tab 5 times daily. Along with our PO me dications that would bring patient up to 4625mg acetaminophen per day. These me dications should not be taken within 4 hours of each other. Left message with Charito Jose RN to find out if they want to prescribe pain medications or us. They may not get an answer until Wednesday regarding who should be prescribing narcotics. Please advise on what to tell patient for weekend. Call taken by: Lilian Greenwood on August 07, 2016 2:31 PM Follow-up for Phone Call Follow-up Details: Mendy called patient. Follow-up by: Lilian Greenwood on August 07, 2016 2:37 PM Additional Follow-up for Phone Call Additional Follow-up Details: I spoke with patient on the phone regarding pain m edications. She verbalized understanding that she cannot take norco as well as oxycodone plus tylenol. She needs to take one option or the other. We discusse d that this can cause liver damage or decreased respiratory system. She was coh erent, alert, and in no distress. Additional Follow-up by: Mendy Hall PA-C on August 07, 2016 2:40 P M Additional Follow-up for Phone Call Additional Follow-up Details: TK from pain Center is returning a call back. S he does not know who left the message. Please call TK back at [phone] ext: [phone] Additional Follow-up by: Daphne Roa on August 07, 2016 3:10 PM Additional Follow-up for Phone Call Additional Follow-up Details: Please ask Mendy if she made this phone call. Additional Follow-up by: Lilian Greenwood on August 11, 2016 3:51 PM Additional Follow-up for Phone Call Additional Follow-up Details: Mendy states she did not call. Additional Follow-up by: Kayley Andrea on August 12, 2016 12:58 PM Additional Follow-up for Phone Call Additional Follow-up Details: Does she want to refill? Additional Follow-up by: Lilian Greenwood on August 13, 2016 10:13 AM Additional Follow-up for Phone Call Additional Follow-up Details: Spoke with patient. She does not need a refill. A prior authorization is required for her Oxycontin to be covered by insurance. I explained to her that this can take up to a week to be processed through ins[employer] m[employer] and she understands. She will follow up on Wednesday as scheduled. Additional Follow-up by: Karin Saenz on August 13, 2016 1:57 PM ES AND LAND SUPERVISOR documented in this encounter Plan of Treatment Care Team Description Date [place] [address] [place] [address] [phone] 02/29/2020 Office Visit Urology documented as of this encounter Visit Diagnoses Not on filedocumented in this encounter Additional Health Concerns Resolved Time Infection Noted Time 04/19/2018 12:13 PM CDT Influenza 08/30/2017 10:13 AM LEASES AND LAND SUPERVISOR 08/30/2019 1:09 PM LEASES AND LAND SUPERVISOR Influenza - Rule Out 08/30/2019 11:32 AM LEASES AND LAND SUPERVISOR 09/17/2019 8:17 AM LEASES AND LAND SUPERVISOR RSV 08/31/2019 6:35 PM LEASES AND LAND SUPERVISOR documented as of this encounter
--- OUTSIDE RECORDS SUMMARY | 2019-11-28 22:34 | XMS REPORT | Encounter Summary ---
Author Author [facility] Organization [facility] Address Unknown Phone Unavailable Care Team Providers Care Director Executive Communications Name Role Phone Ebony Sharp MD PCP Encounter Details Care Team Description Date Type Department [place], [place] 08/11/2016 Hist-Transcript [place] En[facility] Specialists [address] [facility] [address] [place] [address] Social History Date Tobacco Use Types Packs/Day [...] encounter Progress Notes * Juarez Noble - 09/10/2016 7:55 AM SPECIALTY PLANT SUPERVISOR Cast Note A well padded short leg non-weight bearing plaster splint was applied. They were informed of precautions, to keep this clean and dry. They are to call the office if there is any incident or issues that arise. documented in this encounter Plan of Treatment Care Team Description Date [place] [address] [place] [address] [phone] 02/29/2020 Office Visit Urology documented as of this encounter Visit Diagnoses Not on filedocumented in this encounter Additional Health Concerns Resolved Time Infection Noted Time 04/19/2018 12:13 PM CDT Influenza 08/30/2017 10:13 AM SPECIALTY PLANT SUPERVISOR 08/30/2019 1:09 PM SPECIALTY PLANT SUPERVISOR Influenza - Rule Out 08/30/2019 11:32 AM SPECIALTY PLANT SUPERVISOR 09/17/2019 8:17 AM SPECIALTY PLANT SUPERVISOR RSV 08/31/2019 6:35 PM SPECIALTY PLANT SUPERVISOR documented as of this encounter
--- OUTSIDE RECORDS SUMMARY | 2019-11-28 22:34 | XMS REPORT | Encounter Summary ---
Author Author [facility] Organization [facility] Address Unknown Phone Unavailable Care Team Providers Care Hose Cementer Name Role Phone Ebony Sharp MD PCP Reason for Visit * Reason Comments Follow-up eldon left ankle/postop, ts m [id number]: Appt. Reminder (2016 06:21 PM) Phone Call - Message Delivered (X=A nswering Machine) Encounter Details Care Team Description Date Type Department Adelaida Olivas MD [address] [facility] [address] [place] [address] [phone] 08/18/2016 Hist[facility]Appointmen [facility] [address] [facility] [address] [place] [address] Social History Date Tobacco Use Types Packs/Day [...] Description Date [place] [address] [place] [address] [phone] 02/29/2020 Office Visit Urology documented as of this encounter Visit Diagnoses Not on filedocumented in this encounter Additional Health Concerns Resolved Time Infection Noted Time 04/19/2018 12:13 PM CDT Influenza 08/30/2017 10:13 AM POWER PLANT ASSISTANT documented as of this encounter
--- OUTSIDE RECORDS SUMMARY | 2019-11-28 22:34 | XMS REPORT | Encounter Summary ---
Author Author [facility] Organization [facility] Address Unknown Phone Unavailable Care Team Providers Care Garment Fitter Name Role Phone Ebony Sharp MD PCP Encounter Details Care Team Description Date Type Department [place], Historical 08/13/2016 Hist-Telephone [facility] [address] [facility] [address] [place], [place] [id number] Social History Date Tobacco Use Types Packs/Day [...] encounter Miscellaneous Notes * Clinic Note - [facility] - 08/13/2016 2:10 PM ROBOTIC MACHINE TENDER PRODUCTION Follow-up for Phone Call Follow-up Details: Prior authorization submitted for Oxycontin 10mg tablets to [employer] phone number [phone], Follow-up by: Karin Saenz on August 13, 2016 2:11 PM Additional Follow-up for Phone Call Additional Follow-up Details: Received paperwork from Provender. Completed an d faxed back. Additional Follow-up by: Karin Saenz on 2016 9:51 AM Additional Follow-up for Phone Call Additional Follow-up Details: Oxycontin approved 11/14/15-07/2317. Additional Follow-up by: Sheryl Stearns on August 18, 2016 7:12 AM documented in this encounter Plan of Treatment Care Team Description Date [place] [address] [place] [address] [phone] 02/29/2020 Office Visit Urology documented as of this encounter Visit Diagnoses Not on filedocumented in this encounter Additional Health Concerns Resolved Time Infection Noted Time 04/19/2018 12:13 PM CDT Influenza 08/30/2017 10:13 AM ROBOTIC MACHINE TENDER PRODUCTION 08/30/2019 1:09 PM ROBOTIC MACHINE TENDER PRODUCTION Influenza - Rule Out 08/30/2019 11:32 AM ROBOTIC MACHINE TENDER PRODUCTION 09/17/2019 8:17 AM ROBOTIC MACHINE TENDER PRODUCTION RSV 08/31/2019 6:35 PM ROBOTIC MACHINE TENDER PRODUCTION documented as of this encounter
--- OUTSIDE RECORDS SUMMARY | 2019-11-28 22:34 | XMS REPORT | Encounter Summary ---
Author Author [facility] Organization [facility] Address Unknown Phone Unavailable Care Team Providers Care Reconciliation Clerk Name Role Phone Ebony Sharp MD PCP Encounter Details Care Team Description Date Type Department ProviderJuarez MD [address] [place], [place] [address] 08/19/[address] [facility] [address] [facility] [address] [place] [address] Social History Date Tobacco Use Types Packs/Day [...] Description Date [place] [address] [place] [address] [phone] 02/29/2020 Office Visit Urology documented as of this encounter Procedures Comments Procedure Name Priority Date/Time Associated Diag nosis SLEEP STUDY OUTSIDE Routine 08/19/2016 RECORD documented in this encounter Results * Sleep Study Outside Record (08/19/2016) Narrative Performed At This result has an attachment that is n ot available. documented in this encounter Visit Diagnoses Not on filedocumented in this encounter
--- OUTSIDE RECORDS SUMMARY | 2019-11-28 22:34 | XMS REPORT | Encounter Summary ---
Author Author [facility] Organization [facility] Address Unknown Phone Unavailable Care Team Providers Care Tractor Crane Operator Name Role Phone Ebony Sharp MD PCP Encounter Details Care Team Description Date Type Department Adelaida Olivas MD [address] [facility] [address] [place], [place] [id number] 08/18/2016 Hist-Transcript [facility] Encounter Specialists [address] [facility] [address] [place], [place] [phone] Social History Date Tobacco Use Types Packs/Day [...] Progress Notes * Adelaida Olivas MD - 08/27/2016 8:59 AM EMAIL PRODUCER Cast Note A well padded short leg non-weight bearing fiberglass cast was applied. They were informed of precautions, to keep this clean and dry. They are to call the office if there is any incident or issues that arise. L PRODUCER documented in this encounter Plan of Treatment Care Team Description Date [place] [address] [place] [address] [phone] 02/29/2020 Office Visit Urology documented as of this encounter Visit Diagnoses Not on filedocumented in this encounter Additional Health Concerns Resolved Time Infection Noted Time 04/19/2018 12:13 PM CDT Influenza 08/30/2017 10:13 AM EMAIL PRODUCER 08/30/2019 1:09 PM EMAIL PRODUCER Influenza - Rule Out 08/30/2019 11:32 AM EMAIL PRODUCER 09/17/2019 8:17 AM EMAIL PRODUCER RSV 08/31/2019 6:35 PM EMAIL PRODUCER documented as of this encounter
--- OUTSIDE RECORDS SUMMARY | 2019-11-28 22:34 | XMS REPORT | Encounter Summary ---
Author Author [facility] Organization [facility] Address Unknown Phone Unavailable Care Team Providers Care Parent Partner Name Role Phone Ebony Sharp MD PCP Reason for Visit * Reason Comments Post-op Problem reports surgical fusion on left foot done today around 0930. went home around 1530 and noticed there was bleed ing on dressing. has not called surgeon, dr sorensen. reports pain 10/02, s ore. * Auth/Cert Referred By Contact Referred To Contact Status Reason Specialty Diagnoses / Procedures Diagnoses Draining postoperative wound, initial encounter B leeding Bleeding P ost-op pain Encounter Details Care Team Description Date Type Department Walker Funez MD [address] [facility] [facility] [address] [place] [address] [phone] Draining postoperative wound, initial en counter (Primary Dx); Acute bleeding; Chronic obstructive pulmonary disease, unspecified COPD type ([facility]); Essential hypertension; SASHA on CPAP; Type 2 diabetes mellitus without complication, with long-term current use of insulin ([facility]) 08/07/2016 Emergency [facility] 08/08/[address] [place], [place] [id number] Social History Date Tobacco Use Types Packs/Day [...] Signs Reading Time Taken Comments Vital Sign 124/75 08/08/2016 11:57 AM X RAY NURSE Blood Pressure 80 08/08/2016 11:57 AM X RAY NURSE Pulse 36.8 C (98.2 F) 08/08/2016 11:57 AM X RAY NURSE Temperature 18 08/08/2016 11:57 AM X RAY NURSE Respiratory Rate 93% 08/08/2016 11:57 AM X RAY NURSE Oxygen Saturation - - Inhaled Oxygen Concentration 108.6 kg (239 lb 6.7 oz) 08/07/2016 8:19 PM X RAY NURSE Weight 157.5 cm (5' 2") 08/07/2016 8:19 PM X RAY NURSE Height 43.79 08/07/2016 8:19 PM X RAY NURSE Body Mass Index documented in this encounter Discharge Summaries * Walker Funez MD - 08/08/2016 12:15 PM X RAY NURSE [facility] Orthopedic Discharge Summary Patient Name: Caren Patten Age: 65 y.o. Sex: female Admit Date: 08/07/2016 Admitting Physician: Walker Funez MD Length of Stay: 0 Days PCP of Record: Ebony Sharp MD Admission Diagnoses: Draining postoperative wound, initial encounter [T81.89XA] Bleeding [R58] Discharge Diagnoses: Principal Problem: Draining postoperative wound Active Problems: Type 2 diabetes mellitus without complication (HCC) COPD (chronic obstructive pulmonary disease) (HCC) HTN (hypertension) SASHA on CPAP Bleeding Acute bleeding Significant Diagnostic Studies: nil Discharge Labs: Most Recent Result within the last 7 days Lab Units 08/07/162034 CREATININE mg/dL 0.8 Most Recent Result within the last 7 days Lab Units 08/07/162034 HEMOGLOBIN g/dL 11.6* Most Recent Result within the last 7 days Lab Units 08/07/162034 INR 1.1 No lab components to display Procedures: nil Consults: nil Reason for Hospital Admission: Ms. Caren Patten is a 65 y.o. female who present ed with draining from post-op splint. This was changed in the ED and patient fe lt uncomfortable going home, therefore admitted for OBS Hospital Course: Pain controlled, no further bleeding Discharge Exam: Vital Signs: Visit Vitals BP 124/75 (BP Location: Left arm, Patient Position: Supine) Pulse 80 Temp 36.8 C (98.2 F) (Oral) Resp 18 Ht 1.575 m (5' 2") Wt 108.6 kg (239 lb 6.7 oz) SpO2 93% BMI 43.79 kg/m2 Physical Exam: Alert and oriented x person, place, year General: Patient alert and oriented to person, place and time No acute distress. HEENT: Atraumatic, normocephalic. Trachea midline. Respirations: Normal, unlabored Cardiovascular: Peripheral pulses palpable; no peripheral edema or cyanosis Skin: Intact without lesions Splint clean,dry and intact, no bleeding Discharge Instructions: Disposition: Home or Self Care Condition at Discharge: good Discharge code status: Full Code Activity: NWB to operative extremity DVT Prophylaxis: As prescribed by Dr. Sorensen Follow-Up Care: Follow up with Dr. Sorensen as scheduled, call sooner if issues. Discharge Medications Modified Medications Indication(s) amLODIPine 2.5 MG tablet Commonly known as: NORVASC 5 mg, Oral, Daily, Take one daily. What changed: - how much to take - additional instructions Medications To Continue Indication(s) albuterol 90 mcg/actuation HFA inhaler Commonly known as: PROAIR HFA 1 puff, Inhalation, Q4H PRN amitriptyline 25 MG tablet Commonly known as: ELAVIL 25 mg, Oral, Nightly BIOTIN ORAL Oral citalopram 20 mg tablet Commonly known as: CeleXA 20 mg, Oral, Daily * fluticasone-vilanterol 200-25 mcg/actuation INHALER Commonly known as: BREO ELLIPTA 1 puff, Inhalation, Daily Indication: Maintenance Therapy for Asthma * BREO ELLIPTA 100-25 mcg/actuation INHALER Generic drug: fluticasone-vilanterol No dose, route, or frequency recorded. gabapentin 300 MG capsule Commonly known as: NEURONTIN 300 mg, Oral, TID HYDROcodone-acetaminophen 5-325 mg per tablet Commonly known as: NORCO 1 tablet, Oral, Q6H PRN insulin syringe-needle U-100 0.3 mL 31 gauge x 5/16 Syrg Type 2 diabetes E11.9 ipratropium-albuterol 0.5-3 mg/3 mL nebulizer Commonly known as: DUO-NEB 3 mL, Inhalation, 4x Daily LANTUS 100 unit/mL injection Generic drug: insulin glargine INJECT 15 UNITS UNDER THE SKIN EVERY EVENING lidocaine 5 % ointment Commonly known as: XYLOCAINE APPLY EXTERNALLY TO THE AFFECTED AREA 1 TO 4 TIMES DAILY NEEDED metoprolol tartrate 100 MG tablet Commonly known as: LOPRESSOR 100 mg, Oral, BID omeprazole 20 MG capsule Commonly known as: PriLOSEC No dose, route, or frequency recorded. OXYGEN THERAPY PRN simvastatin 20 MG tablet Commonly known as: ZOCOR 20 mg, Oral, Nightly * Notice: There are duplicate medications prescribed to the patient X RAY NURSE documented in this encounter Discharge Instructions * Attachments The following attachments cannot be sent through Care Everywhere.* DIABETES, FOOT CARE PROGRAM, YOUR (CHADIAN) * POST OP WOUND CHECK, GENERAL (CHADIAN) documented in this encounter Medications at Time [...] each 0 U-100 0.3 mL 31 x 5/16" diabetes Syrg E11.9 07/20/2016 09/09/2016 LANTUS 100 [...] as of this encounter Progress Notes * Walker Funez MD - 08/08/2016 12:11 PM X RAY NURSE Patient doing well this AM. Pain improved and tolerable. She has kept elevated. No more bleeding through splint. Answered all questions. X RAY NURSE documented in this encounter H&P Notes * Walker Funez MD - 08/07/2016 6:57 PM X RAY NURSE [facility] Consult Note [phone] 08/07/2016 Patient Identification Patient's Name: Caren Ernestina Patten : 1950 Admit Date: 08/07/2016 Attending Provider: No att. providers found Patient was seen and evaluated by [facility] at the reques t of No att. providers found for orthopedic needs. Primary Care Physician: Ebony Sharp MD Admitting Diagnosis: There are no admission diagnoses documented for this encoun ter. History of Present Illness Caren Patten is a 65 y.o. female 65-year-old female presents for right ankle bl eeding. She states that she [facility] She states she was discharged to home at approximately 3:30 this afternoon after a "ankle fusion". Unable to access the records from the surgery center. She states that after she arrived at home she a ttempted to: To her upstairs bedroom. She states that she sat on her buttocks an d attempted to place herself up approximately 10 steps. She states that in the i nterim of maneuvering up the steps she began to have bleeding to the posterior a spect of her splint. She states that the bleeding soaked through the bandage and a splint. She then called EMS for transport to the hospital. Patient History Information Past Medical History: Past Medical History Diagnosis Date Arthritis COPD (chronic obstructive pulmonary disease) (HCC) Diabetes mellitus (HCC) Hyperlipidemia Hypertension Past Surgical History: Past Surgical History Procedure Laterality Date section, classic Cholecystectomy Hysterectomy Cataract extraction, bilateral Ankle surgery Left FAMILY HISTORY: Family History Problem Relation Age of Onset Cancer Mother Stroke Mother Cancer Father Stroke Father Current Medications: Scheduled Meds: Continuous Infusions: PRN Meds: Allergies: Allergies Allergen Reactions Lisinopril Anaphylaxis Metformin Sulfa (Sulfonamide Antibiotics) Social History: Social History Occupational History Not on file. Social History Main Topics Smoking status: Former Smoker Quit date: 09/14/2009 Smokeless tobacco: Never Used Alcohol use No Drug use: No Sexual activity: No Review of Systems Constitutional: Denies Eyes: Denies Ears/Nose/Mouth/Throat: Denies Cardiovascular: Denies Respiratory: Denies Gastrointestinal: Denies Musculoskeletal: See HPI Integumentary: Denies Neurologic: See HPI Psychiatric: Denies Physical Exam Patient Vitals for the past 24 hrs: BP Temp Temp src Pulse Resp SpO2 Height Weight 08/07/16 1652 - - - - - 95 % - - 08/07/16 1627 124/78 36.4 C (97.6 F) Oral 83 18 (!) 87 % 1.575 m (5' 2") 107 kg (236 lb) Constitutional: Appears well-developed, well-nourished. No acute distress. HEENT: Atraumatic, normocephalic. Trachea midline. Respirations: Normal, unlabored Cardiovascular: Peripheral pulses palpable; no peripheral edema or cyanosis Skin: Warm and dry, without lesions Psych: Oriented to person, place, time; appropriate mood and affect. Lymph: No palpable lymph nodes in upper extremity Lower extremity: Splint re-applied in ED, good perfusion to toes Assessment/Plan 65 y.o. female uncomfortable to leave ED due to bleeding; this after rewrapped in ED so will admit for overnight obs. Elevate, NWB, D/C tomorrow. Walker Funez 08/07/2016 6:58 PM X RAY NURSE documented in this encounter Consult Notes * Lilibeth Redmond RN DIRECTOR OF SCIENTIFIC RESEARCH - 08/08/2016 9:38 AM X RAY NURSE Associated Order(s): IP CONSULT TO HOSPITALIST [facility] ACCOUNT MANAGER B2B Hospitalist - Consult History & Physical Patient Name: Caren Patten Date of : 1950 Date of Admission: 08/07/2016 4:17 PM Bed: 4005/4005-01 Primary Care Physician: Ebony Sharp MD; Subjective Reason for Consult: Medical management of HTN, DM, COPD Consulting Physician: Walker Funez MD History of Present illness: Ms. Caren Patten is a 65 y.o. female who presented with right ankle bleeding. She underwent ankle fusion surgery yesterday (relate d to an old injury in 1998) at an OP surgery center by Dr. Leone. After she was discharged home yesterday she had significant bleeding posterior to her splint a fter she scooted herself up stairs. Hospitalist have been consulted for managem ent of HTN, DM and COPD. She is on 2L of oxygen at home for COPD. She takes Breo daily and rescue inhaler a few times a day. She is on a CPAP at night for sleep apnea. She's been a bela betic for 6 years and fasting blood sugars are 120-130s. [facility] She denies any hypoglycemic episodes. She is planning to have gastric b ypass surgery in the next month. She checks her blood pressures at home, typica lly 140s/70s. She has intermittent dizziness and chest pain, recent stress test was negative f or ischemia. She denies palpitations, dyspnea, ABD pain, N/V, dysuria, fever or chills. Review of Systems: A complete 10-point review of systems was performed, includi ng cardiovascular and pulmonary, and was negative except as noted above. Past Medical History Diagnosis Date Arthritis COPD [...] her daughter, Frank Garcia Code status: Full Immunization History Administered Date(s) Administered Influenza QIV (IM) 05/09/2016 Pneumococcal Polysaccharide 05/09/2016 Allergies Allergen Reactions Lisinopril Anaphylaxis Metformin Anaphylaxis Sulfa (Sulfonamide Antibiotics) Hives Prior to Admission medications Medication Sig HYDROcodone-acetaminophen (NORCO) 5-325 mg per tablet Take 1 tablet by mouth tate ry 6 (six) hours as needed for pain. albuterol (PROAIR [...] mg by mouth daily. Take one daily. BIOTIN ORAL Take by mouth. BREO ELLIPTA 100-25 mcg/dose INHALER citalopram (CELEXA) 20 MG tablet Take 1 tablet (20 mg total) by mouth daily. fluticasone-vilanterol (BREO ELLIPTA) 200-25 mcg/actuation INHALER Inhale 1 puff daily. gabapentin (NEURONTIN) 300 MG capsule Take 1 capsule (300 mg total) by mouth 3 ( three) times a day. insulin syringe-needle U-100 0.3 mL 31 x 5/16" Syrg Type 2 diabetes E11.9 ipratropium-albuterol (DUO-NEB) 0.5-3 mg/3 mL nebulizer Inhale [...] mo uth 2 (two) times a day. omeprazole (PRILOSEC) 20 MG capsule OXYGEN THERAPY as needed. simvastatin (ZOCOR) 20 MG tablet Take 1 tablet (20 mg total) by mouth nightly. Objective Visit Vitals BP 105/66 (BP Location: Left arm, Patient Position: Sitting) Pulse 84 Temp 36.7 C (98.1 F) (Oral) Resp 20 Ht 1.575 m (5' 2") Wt 108.6 kg (239 lb 6.7 oz) SpO2 93% BMI 43.79 kg/m2 Intake/Output Summary (Last 24 hours) at 08/08/16 1157 Last data filed at 08/08/16 0839 Gross per 24 hour Intake 120 ml Output 400 ml Net -280 ml Physical Findings Physical Exam: Gen: Calm, cooperative, no apparent distress CV: RRR, S1 & S2 normal, no murmurs, gallops, or rubs, 2+ pulses all extremities Resp: CTAB, no wheezes, crackles, or rhonchi Abd: Obese, S/ND/NT, +BS Ext: No cyanosis MS: LLE in post op dressing d/i Skin: Warm, dry, skin intact with no obvious rashes or significant lesions Neuro: A/Ox4, no focal neurologic deficits No ECG needed/obtained. Diagnostic Studies Results for orders placed or performed during the hospital encounter of 08/07/16 (from the past 24 hour(s)) CBC and Diff (manual diff if necessary) Result Value Ref Range WBC 11.97 (H) 4.00 - 11.00 TH/uL RBC 3.57 (L) 4.00 - 5.00 MIL/uL Hemoglobin 11.6 (L) 12.0 - 15.0 g/dL Hematocrit 36 36 - 45 % MCV 101 (H) 80 - 99 fL MCH 33 27 - 34 pg MCHC 32 32 - 36 % RDW 14.2 9.0 - 14.5 % Platelet Count 127 (L) 140 - 400 TH/uL MPV 9.6 9.4 - 12.3 fL %Segmented Neutrophils 66 45 - 78 % %Lymphocytes 21 15 - 47 % %Monocytes 12 0 - 12 % %Eosinophils 2 0 - 7 % %Basophils 0 0 - 2 % # Granulocytes 7.87 (H) 1.7 - 6.8 TH/uL # Lymphocytes 2.47 1.0 - 3.3 TH/uL # Monocytes 1.42 (H) 0.2 - 0.9 TH/uL # Eosinophils 0.19 0.0 - 0.4 TH/uL # Basophils 0.02 0.0 - 0.1 TH/uL Basic Metabolic Panel Result Value Ref Range Sodium 141 133 - 147 MEQ/L Potassium 3.7 3.5 - 5.3 MEQ/L Chloride 104 96 - 112 MEQ/L Carbon Dioxide 28 20 - 32 MEQ/L Anion Gap 10 5 - 17 Calcium 8.6 8.4 - 10.5 mg/dL Glucose 239 (H) 70 - 100 mg/dL Blood Urea Nitrogen 16 7 - 26 mg/dL Creatinine 0.8 0.4 - 1.1 mg/dL GFR Female AA 87 60 - 200 GFR Female Non-AA 72 60 - 200 Prothrombin Time/INR Result Value Ref Range Protime 13.7 11.4 - 15.0 sec INR 1.1 0.8 - 1.2 No results found. No results found. Assessment/Plan Ms. Caren Patten is a 65 y.o. female with hx of HTN, IDDM, COPD presents with s hortness of breath, failed OP therapy. Likely COPD exacerbation. Started on Leva zach, steroids, breathing treatments and supplemental oxygen, with improvement. Type 2 diabetes mellitus without complication (HCC) A1c 8.6% this month Continue Lantus at HS AC/HS accu checks CC, SH diet COPD (chronic obstructive pulmonary disease) (HCC) Not in acute exacerbation Continue Breo and prn albuterol Continue chronic 2L O2 HTN (hypertension) Normotensive Continue BB and Norvasc SASHA on CPAP Compliant with CPAP Continue Acute bleeding Bleeding after left ankle surgery yesterday Splint was reapplied in ED yesterday Stable, dressings D/I Hgb 11.6, VSS Ortho consulted, per note yesterday anticipated discharge today See my orders for additional details regarding this patients treatment plan. Diet-Low Fat/Chol, 2 gm Na (Simply Healthy) Full Code VTE Orders enoxaparin (LOVENOX) syringe 30 mg Every [address] sequential compression device Once Thank you for the opportunity to participate in this patients care. We will cont inue to follow along. Lilibeth Redmond RN DIRECTOR OF SCIENTIFIC RESEARCH [facility] Please page through physician paging. . X RAY NURSE Associated attestation - Omar Elliott DO - 08/18/2016 2:14 PM X RAY NURSE Attending Physician Attestation: This note was reviewed for chart compliance, but I have not seen or discussed th is case with the nurse practitioner. Omar Elliott DO [facility] [phone] documented in this encounter ED Notes * Neena Diaz RN - 08/07/2016 6:30 PM X RAY NURSE Splint applied per orders. Skin warm and pink. Pt denies any numbness or tinglin g. X RAY NURSE * Manisha Poole APRN - 08/07/2016 5:30 PM X RAY NURSE 08/07/2016 [facility] History Chief Complaint Patient presents with Post-op Problem reports surgical fusion on left foot done today around 0930. went home around 1530 and noticed there was bleeding on dressing. has not called surgeon, dr lucretia david reports pain 2/10, sore. HPI Comments: 65-year-old female presents for right ankle bleeding. She states that she had surgery at outpatient [facility] [place] at [facility]. She states she was discharged to home at approximately 3:30 this afternoon aft er a "ankle fusion". Unable to access the records from the surgery center. She states that after she arrived at home she attempted to go to her upstairs bedr oom. She states that she sat on her buttocks and attempted to place herself up approximately 10 steps. She states that in the interim of maneuvering up the st eps she began to have bleeding to the posterior aspect of her splint. She state s that the bleeding soaked through the bandage and the splint. She then called EMS for transport to the hospital. The history is provided by the patient. [...] Alcohol use No Review of Systems Constitutional: Negative. Respiratory: Negative. Cardiovascular: Negative. Musculoskeletal: Negative. Skin: Right ankle with 4 incision sites, oozing bleeding from the anterior and la teral incisions. Neurological: Negative. Hematological: Negative. Psychiatric/Behavioral: Negative. All other systems reviewed and are negative. Physical Exam Visit Vitals BP 124/75 (BP Location: Left arm, Patient Position: Supine) Pulse 80 Temp 36.8 C (98.2 F) (Oral) Resp 18 Ht 1.575 m (5' 2") Wt 108.6 kg (239 lb 6.7 oz) SpO2 93% BMI 43.79 kg/m2 Physical Exam Constitutional: She is oriented to person, place, and time. She appears well-dev eloped and well-nourished. Cardiovascular: Normal rate, regular rhythm and normal heart sounds. Pulmonary/Chest: Effort normal and breath sounds normal. Musculoskeletal: Left ankle: She exhibits swelling. She exhibits normal pulse. Tenderness. L ateral malleolus tenderness found. R ankle with incisions oozing blood, anterior incision as well as lateral incisi on. Mild +1-2 edema of the ankle and foot. Dorsal pedialis and posterior tib p ulse +2 and strong. Neurological: She is alert and oriented to person, place, and time. Skin: Skin is warm and dry. Psychiatric: She has a normal mood and affect. Her behavior is normal. Judgment and thought content normal. Nursing note and vitals reviewed. ED Course Procedures MDM Medications oxyCODONE-acetaminophen (PERCOCET) 5-325 mg 2 tablet (2 tablets Oral Given 08/07) No results found for this or any previous visit (from the past 24 hour(s)). No orders to display 1729-I spoke with regarding the pts bleeding. He suggested we reinfor ce the dressing with ABD and rewrap and splint the ankle as previously splinted SENIOR ASSISTANT MANAGER. 1744-I spoke with the patient regarding redressing and splinting ankle. She in itially was okay with the plan to discharge to home. Her daughter then came to the room and stated that they were concerned due to the bleeding and felt uncomf ortable going home. I paged Dr. Funez back to discuss the pts plan of care. 1819-Splint was re-applied to the left ankle by myself, RN and tech . Posterior mold splint and stir up splint placed, incisions were reinforced with abd and 4 x4s And Bautista roll. Pt and her daughter are uncomfortable discharging to home d ue to bleeding. Her daughter and the patient voicing to myself and the RN that they feel they cannot go home with this bleeding. I called or so back regarding patient's request for observation as she feels she cannot go home in her presen t condition. Dr. Funez has agreed to admit the pt to the hospital, [facility] consulted due to pts hx of COPD , DM, and htn. Pt given 2 percocets in ed for pain. Pt had been dc'd to home with rx for percocet. I have reviewed all of the labs and radiology studies. ED Course ED Clinical Impression 1. Draining postoperative wound, initial encounter 2. Acute bleeding 3. Chronic obstructive pulmonary disease, unspecified COPD type ([facility]) 4. Essential hypertension 5. SASHA on CPAP 6. Type 2 diabetes mellitus without complication, with long-term current use of insulin ([facility]) Manisha Poole, DIRECTOR OF SCIENTIFIC RESEARCH 08/07/16 192 Manisha Ever Poole, DIRECTOR OF SCIENTIFIC RESEARCH 08/10/16 8524 X RAY NURSE documented in this encounter Miscellaneous Notes * Assessment & Plan Note - Lilibeth Redmond RN DIRECTOR OF SCIENTIFIC RESEARCH - 08/08/2016 11:55 AM X RAY NURSE Associated Problem(s): Acute bleeding (Resolved 01/11/2019) Bleeding after left ankle surgery yesterday Splint was reapplied in ED yesterday Stable, dressings D/I Hgb 11.6, VSS Ortho consulted, per note yesterday anticipated discharge today X RAY NURSE * Assessment & Plan Note - Lilibeth Redmond RN DIRECTOR OF SCIENTIFIC RESEARCH - 08/08/2016 11:53 AM X RAY NURSE Associated Problem(s): COPD (chronic obstructive pulmonary disease) (HCC) Not in acute exacerbation Continue Breo and prn albuterol Continue chronic 2L O2 X RAY NURSE * Assessment & Plan Note - Lilibeth Redmond RN DIRECTOR OF SCIENTIFIC RESEARCH - 08/08/2016 11:52 AM X RAY NURSE Associated Problem(s): Essential hypertension Normotensive Continue BB and Norvasc X RAY NURSE * Assessment & Plan Note - Lilibeth Redmond RN DIRECTOR OF SCIENTIFIC RESEARCH - 08/08/2016 11:52 AM X RAY NURSE Associated Problem(s): SASHA on CPAP Compliant with CPAP Continue X RAY NURSE * Assessment & Plan Note - Lilibeth Redmond RN DIRECTOR OF SCIENTIFIC RESEARCH - 08/08/2016 11:51 AM X RAY NURSE Associated Problem(s): Type 2 diabetes mellitus without complication (HCC) (Reso lved 02/04/2017) A1c 8.6% this month Continue Lantus at HS AC/HS accu checks CC, SH diet X RAY NURSE * Plan of Care - Abida Ndiaye RN - 08/08/2016 9:03 AM X RAY NURSE Problem: Risk for Falls Goal: Patient will not fall during their Inpatient stay Outcome: Adequate for Discharge Problem: Acute Pain Goal: Pain controlled to patients/families desired goal Outcome: Adequate for Discharge Problem: Bleeding Precautions Goal: Excessive bleeding will be minimized Outcome: Adequate for Discharge X RAY NURSE * Plan of Dianna Sabillon RN - 08/07/2016 10:11 PM X RAY NURSE Problem: Acute Pain Goal: Pain controlled to patients/families desired goal Outcome: Progressing Problem: Bleeding Precautions Goal: Excessive bleeding will be minimized Outcome: Adequate for Discharge X RAY NURSE * Plan of Dianna Sabillon RN - 08/07/2016 10:10 PM X RAY NURSE Problem: Risk for Falls Goal: Patient will not fall during their Inpatient stay Outcome: Progressing X RAY NURSE documented in this encounter Plan of Treatment Care Team Description Date [place] [address] [place] [id number] [phone] 02/29/2020 Office Visit Urology Date/Time Name Type Priority Associated Diag noses 08/18/2016 2:14 PM X RAY NURSE Consult to Hospitalist Consult Routine documented as of this encounter Procedures Comments Procedure Name Priority Date/Time Associated Diag nosis GLUCOSE POC Routine 08/08/2016 12:16 PM X RAY NURSE PROTHROMBIN TIME/INR STAT 08/07/2016 8:35 PM X RAY NURSE CBC AND DIFF (MANUAL DIFF STAT 08/07/2016 IF NECESSARY) 8:35 PM X RAY NURSE BASIC METABOLIC PANEL STAT 08/07/2016 8:35 PM X RAY NURSE documented in this encounter Results * GLUCOSE POC (08/08/2016 12:16 PM X RAY NURSE) Glucose POC 188 (H) 70 - 100 mg/dL [facility] [facility] Specimen Performing Organization Address City/State/[facility] Ph one Number [facility] [address] [address] [facility] [address] [place] [facility] [place] [address], [place] [phone] [facility] * Prothrombin Time/INR (08/07/2016 8:35 PM X RAY NURSE) Protime 13.7 11.4 - 15.0 sec [facility] INR 1.1 0.8 - 1.2 [facility] Specimen Blood Performing Organization Address City/[facility] [place] [facility] Ph one Number [facility] [address] [place] [facility] [place] [address] [facility] [address] [facility] [place] [address], [facility] * Basic Metabolic Panel (08/07/2016 8:35 PM X RAY NURSE) Sodium 141 133 - 147 MEQ/L [facility] Potassium 3.7 3.5 - 5.3 MEQ/L [facility] Chloride 104 96 - 112 MEQ/L [facility] Carbon Dioxide 28 20 - 32 MEQ/L [facility] Anion Gap 10 5 - 17 [facility] Calcium 8.6 8.4 - 10.5 mg/dL [facility] Glucose 239 (H) 70 - 100 mg/dL [facility] Blood Urea 16 7 - 26 mg/dL [facility] Nitrogen [facility] Creatinine 0.8 0.4 - 1.1 mg/dL [facility] eGFR Female AA 87 60 - 200 [facility] Comment: [facility] Chronic Kidney Disease less [facility] than 60 mL/min/1.73 sq.m Kidney failure less than 15 mL/min/1.73 sq.m eGFR Female 72 60 - 200 [facility] Comment: [facility] Chronic Kidney Disease less [facility] than 60 mL/min/1.73 sq.m Kidney failure less than 15 mL/min/1.73 sq.m Specimen Blood Performing Organization Address City/State/Zipcode Ph one Number [facility] [address] [place] [facility] [place] [facility] [place] [place] [id number] [facility] [address] [place] [facility] [place] [facility] [place] [address], [facility] * CBC and Diff (manual diff if necessary) (08/07/2016 8:35 PM X RAY NURSE) WBC 11.97 (H) 4.00 - 11.00 TH/uL [place] [place] [facility] RBC 3.57 (L) 4.00 - 5.00 MIL/uL [place] [facility] Hemoglobin 11.6 (L) 12.0 - 15.0 g/dL [place] [facility] Hematocrit 36 36 - 45 % [place] [facility] MCV 101 (H) 80 - 99 fL [place] [facility] MCH 33 27 - [address] [facility] MCHC 32 32 - 36 % [facility] RDW 14.2 9.0 - 14.5 % [facility] Platelet Count 127 (L) 140 - 400 TH/uL [place] [facility] MPV 9.6 9.4 - 12.3 fL [facility] % Neutrophils 66 45 - 78 % [facility] %Lymphocytes 21 15 - 47 % [facility] %Monocytes 12 0 - 12 % [facility] %Eosinophils 2 0 - 7 % [facility] %Basophils 0 0 - 2 % [facility] [place] # Granulocytes 7.87 (H) 1.7 - 6.8 TH/uL [facility] # Lymphocytes 2.47 1.0 - 3.3 TH/uL [facility] [place] # Monocytes 1.42 (H) 0.2 - 0.9 TH/uL [facility] [place] [facility] # Eosinophils 0.19 0.0 - 0.4 TH/uL [facility] [place] [facility] # Basophils 0.02 0.0 - 0.1 TH/uL [facility] [place] [facility] Specimen Blood Performing Organization Address City/State/Zipcode Ph one Number [facility] [address] [facility] [address] [facility] [address] [place] [facility] [place] [address], [facility] documented in this encounter Visit Diagnoses Diagnosis Draining postoperative wound, initial e ncounter Acute bleeding Chronic obstructive pulmonary disease, unspecified COPD type (HCC) Essential hypertension Unspecified essential hypertension SASHA on CPAP Type 2 diabetes mellitus without compli cation, 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) Bleeding Unspecified hemorrhage Type 2 diabetes mellitus without compli cation (HCC) documented in this encounter Admitting Diagnoses Diagnosis Draining postoperative wound documented in this encounter Administered Medications Action Date Dose Rate Site Medication Order MAR Action acetaminophen (TYLENOL) suppository 325-650 mg 325-650 mg, Rectal, Every 6 hours PRN, headaches, fever, Starting Wed08/07/16 at 2038, Do not exceed 4 GM/DAY of acetaminophen. If 65 or older do not exceed 3 GM/DAY. If chronic alcoholic d o not exceed 2 GM/DAY., acetaminophen (TYLENOL) tablet 325-650 mg 325-650 mg, Oral, Every 6 hours PRN, headaches, fever, Starting Wed08/07/16 at 2038, Do not exceed 4 GM/DAY of acetaminophen. If 65 or older do not exceed 3 GM/DAY. If chronic alcoholic d o not exceed 2 GM/DAY., 08/07/2016 9:43 PM X RAY NURSE 25 mg amitriptyline (ELAVIL) tablet 25 mg Given 25 mg, Oral, Nightly, First dose on Wed08/07/16 at 2100 08/08/2016 8:32 AM X RAY NURSE 5 mg amLODIPine (NORVASC) tablet 5 mg Given 5 mg, Oral, Daily, First dose on 08/08/16 at 0900 08/08/2016 8:32 AM X RAY NURSE 20 mg citalopram (CeleXA) tablet 20 mg Given 20 mg, Oral, Daily, First dose on Wed08/08/16 at 0900 dextrose 50 % syringe 25-50 mL 25-50 mL, Intravenous, As needed, low blood sugar, Starting 08/08/16 at 1158, Give if patient NPO and IV access already available. If no IV access giv e Glucagon SQ or IM in arm and turn patient on side. Recheck BG in 15 minutes. Repeat until glucose greater than 80., 08/08/2016 8:32 AM X RAY NURSE 30 mg Abdomina l Tissue enoxaparin (LOVENOX) syringe 30 mg Given 30 mg, Subcutaneous, Every 12 hours scheduled, First dose (after last modification) on 08/08/16 at 0900 08/08/2016 7:24 AM X RAY NURSE 1 puff fluticasone-vilanterol (BREO ELLIPTA) Given 100-25 mcg/actuation inhaler 1 puff 1 puff, Inhalation, Daily, First dose o n 08/08/16 at 0900, Rinse mouth with water after use if patient not on vent. , 08/08/2016 8:32 AM X RAY NURSE 300 mg gabapentin (NEURONTIN) capsule 300 mg Given 300 mg, Oral, 3 times daily, First dose on Wed08/07/16 at 2100 300 mg Given 08/07/2016 9:43 PM X RAY NURSE glucagon (GLUCAGEN) injection 1 mg 1 mg, Intramuscular, As needed, low blood sugar, low blood sugar, Starting 08/08/16 at 1158, If no IV access. May give IM or SQ in arm and turn patient on side., glucagon (GLUCAGEN) injection 1 mg 1 mg, Subcutaneous, As needed, low bloo d sugar, low blood sugar, Starting Wed08/08/16 at 1158, If no IV access. May give IM or SQ in arm and turn patient o n side., 08/07/2016 9:43 PM X RAY NURSE 15 Units Abdomina l Tissue insulin glargine (LANTUS) injection 15 Given Units 15 Units, Subcutaneous, Nightly, First dose on Wed08/07/16 at 2100 insulin lispro (HumaLOG) injection 1-6 Units 1-6 Units, Subcutaneous, 4 times daily before meals and nightly, First dose on Wed08/08/16 at 1215, LEVEL 2 Give in addition to scheduled [...] blood glucose check - dose per table, 08/08/2016 11:18 AM X RAY NURSE 3 mL ipratropium-albuterol (DUO-NEB) 0.5-3 Given mg/3 mL nebulizer solution 3 mL 3 mL, Inhalation, 4 times daily, First dose on Wed08/07/16 at 2100 3 mL Given 08/08/2016 7:24 AM X RAY NURSE 3 mL Given 08/07/2016 9:06 PM X RAY NURSE metoclopramide (REGLAN) injection 5-10 mg 5-10 mg, Intravenous, Every 6 hours PRN , nausea, vomiting, Starting Wed08/07/16 at 2038, Use if treatment failure or contraindications to first line therapy 5 10 mg IV/IM; every 10 minutes up to 10 mg within 30 minutes. If >65, do not exceed 5 mg total over 30 minute titration period. May repeat every 6 hours as needed., metoclopramide (REGLAN) injection 5-10 mg 5-10 mg, Intramuscular, Every 6 hours PRN, nausea, vomiting, Starting Wed08/07/16 at 2037, Use if treatment failure or contraindications to first line therapy 5 10 mg IV/IM; every 10 minutes up to 10 mg within 30 minutes. If >65, do not exceed 5 mg total over 30 minute titration period. May repeat every 6 hours as needed., 08/08/2016 8:32 AM X RAY NURSE 100 mg metoprolol tartrate (LOPRESSOR) tablet Given 100 mg 100 mg, Oral, 2 times daily, First dose on Wed08/07/16 at 2100 100 mg Given 08/07/2016 9:42 PM X RAY NURSE 08/08/2016 10:08 AM X RAY NURSE 4 mg morphine injection 2-5 mg Given 2-5 mg, Intravenous, Every 3 hours PRN, severe pain (pain score 7-10), breakthrough pain, or if patient unable to tolerate oral pain medications, Starting Wed08/07/16 at 2037, Administer over 5 min; max dose of IVP is 10 mg. Note: Limit does not apply to patients who may be tolerant to opioid therapy or on continuous IV or PO opiat e therapy., 4 mg Given 08/08/2016 6:10 AM X RAY NURSE 4 mg Given 08/08/2016 3:01 AM X RAY NURSE 08/08/2016 8:39 AM X RAY NURSE 4 mg ondansetron (ZOFRAN) 4 mg/2 mL injection Given 4 mg 4 mg, Intravenous, Every 6 hours PRN, nausea, vomiting, Starting Wed08/07/16 at 203608/08/2016 4:28 AM X RAY NURSE 10 mg oxyCODONE (ROXICODONE) immediate release Given tablet 5-10 mg 5-10 mg, Oral, Every 4 hours PRN, sever e pain (pain score 7-10), Starting Wed08/07/16 at 2037, Use first line for severe pain (7-10), 10 mg Given 08/07/2016 9:50 PM X RAY NURSE 08/08/2016 8:39 AM X RAY NURSE 1 tablet oxyCODONE-acetaminophen (PERCOCET) 5-325 Given mg 1 tablet 1 tablet, Oral, Every 4 hours PRN, moderate pain (pain score 4-6), severe pain (pain score 7-10), Starting Wed08/07/16 at 2036, Do not exceed 4 GM/DA Y of acetaminophen. If 65 or older do no t exceed 3 GM/DAY. If chronic alcoholic d o not exceed 2 GM/DAY., 1 tablet Given 08/07/2016 11:55 PM X RAY NURSE 08/07/2016 5:40 PM X RAY NURSE 2 tablets oxyCODONE-acetaminophen (PERCOCET) 5-325 Given mg 2 tablet 2 tablet, Oral, Once, Wed08/07/16 at 1731, For 1 dose, Do not exceed 4 GM/DA Y of acetaminophen. If 65 or older do no t exceed 3 GM/DAY. If chronic alcoholic d o not exceed 2 GM/DAY., 08/08/2016 6:09 AM X RAY NURSE 40 mg pantoprazole (PROTONIX) EC tablet 40 mg Given 40 mg, Oral, Every morning before breakfast, First dose (after last modification) on Wed08/08/16 at 0700, DO NOT CRUSH OR CHEW., 08/07/2016 9:43 PM X RAY NURSE 40 mg pravastatin (PRAVACHOL) tablet 40 mg Given 40 mg, Oral, Nightly, First dose on Wed08/07/16 at 2100 prochlorperazine (COMPAZINE) suppositor y 25 mg 25 mg, Rectal, Every 12 hours PRN, nausea, vomiting, Starting Wed08/07/16 at 2037, First-line therapy, prochlorperazine (COMPAZINE) tablet 2.5-10 mg 2.5-10 mg, Oral, Every 6 hours PRN, nausea, vomiting, Starting Wed08/07/16 at 2037, First-line therapy, promethazine (PHENERGAN) injection 6.25-12.5 mg 6.25-12.5 mg, Intramuscular, Every 6 hours PRN, nausea, vomiting, Starting Wed08/07/16 at 2037, First-line therapy, documented in this encounter
--- OUTSIDE RECORDS SUMMARY | 2019-11-28 22:34 | XMS REPORT | Encounter Summary ---
Author Author [facility] Organization [facility] Address Unknown Phone Unavailable Care Team Providers Care Library Page Name Role Phone Ebony Sharp MD PCP Encounter Details Care Team Description Date Type Department Adelaida Olivas MD [address] [facility] [address] [place] [address] [phone] 08/07/2016 Hist-Transcript [facility] En[facility]ists [address] [facility] [address] [place], [place] [id number] Social History Date Tobacco Use Types Packs/Day [...] Note - Adelaida Olivas MD - 08/11/2016 11:59 AM BRISKET PULLER KET PULLER documented in this encounter Plan of Treatment Care Team Description Date [place] [address] [place] [address] [phone] 02/29/2020 Office Visit Urology documented as of this encounter Visit Diagnoses Not on filedocumented in this encounter Additional Health Concerns Resolved Time Infection Noted Time 04/19/2018 12:13 PM CDT Influenza 08/30/2017 10:13 AM BRISKET PULLER 08/30/2019 1:09 PM BRISKET PULLER Influenza - Rule Out 08/30/2019 11:32 AM BRISKET PULLER 09/17/2019 8:17 AM BRISKET PULLER RSV 08/31/2019 6:35 PM BRISKET PULLER documented as of this encounter
--- OUTSIDE RECORDS SUMMARY | 2019-11-28 22:34 | XMS REPORT | Encounter Summary ---
Author Author [facility] Organization [facility] Address Unknown Phone Unavailable Care Team Providers Care Private Investigator Surveillance Name Role Phone Ebony Sharp MD PCP Encounter Details Care Team Description Date Type Department [place] 08/07/2016 Hist-Transcript [place] [facility] ion Encounter Specialists [address] [facility] [address] [place] [address] Social History Date Tobacco Use Types Packs/Day [...] encounter Miscellaneous Notes * Operative Note - [facility] - 08/11/2016 12:02 PM EEG TECHNICIAN documented in this encounter Plan of Treatment Care Team Description Date [place] [address] [place] [address] [phone] 02/29/2020 Office Visit Urology documented as of this encounter Visit Diagnoses Not on filedocumented in this encounter Additional Health Concerns Resolved Time Infection Noted Time 04/19/2018 12:13 PM CDT Influenza 08/30/2017 10:13 AM EEG TECHNICIAN 08/30/2019 1:09 PM EEG TECHNICIAN Influenza - Rule Out 08/30/2019 11:32 AM EEG TECHNICIAN 09/17/2019 8:17 AM EEG TECHNICIAN RSV 08/31/2019 6:35 PM EEG TECHNICIAN documented as of this encounter
--- OUTSIDE RECORDS SUMMARY | 2019-11-28 22:34 | XMS REPORT | Encounter Summary ---
Author Author [facility] Organization [facility] Address Unknown Phone Unavailable Care Team Providers Care Transformation Analyst Name Role Phone Ebony Sharp MD PCP Encounter Details Care Team Description Date Type Department Adelaida Olivas MD [address] [facility] [address] [place] [address] 08/10/2016 Hist-Telephone [facility] [address] [facility] [address] [place], [place] [id number] Social History Date Tobacco Use Types Packs/Day [...] Clinic Note - Adelaida Olivas MD - 08/10/2016 10:04 AM LEAD REFINER Phone Note Call from Other Clinic Summary of call: Silvestre the patient's daughter is calling and would like to follow up with Dr. Olivas on what he suggests about the patient's ER visit after surgery. She would like to know what they should do about the incision. Please c all back at [phone] Call taken by: Delores Nino on August 10, 2016 10:05 AM Follow-up for Phone Call Follow-up Details: Per Mendy, do not change dressing. Have patient come in tod ay or tomorrow to see her. Message relayed and appointment made for [facility] as they couldn't come in today. Follow-up by: Lilian Greenwood on August 10, 2016 12:41 PM REFINER documented in this encounter Plan of Treatment Care Team Description Date [place] [address] [place] [address] [phone] 02/29/2020 Office Visit Urology documented as of this encounter Visit Diagnoses Not on filedocumented in this encounter Additional Health Concerns Resolved Time Infection Noted Time 04/19/2018 12:13 PM CDT Influenza 08/30/2017 10:13 AM LEAD REFINER 08/30/2019 1:09 PM LEAD REFINER Influenza - Rule Out 08/30/2019 11:32 AM LEAD REFINER 09/17/2019 8:17 AM LEAD REFINER RSV 08/31/2019 6:35 PM LEAD REFINER documented as of this encounter
--- OUTSIDE RECORDS SUMMARY | 2019-11-28 22:34 | XMS REPORT | Encounter Summary ---
Author Author [facility] Organization [facility] Address Unknown Phone Unavailable Care Team Providers Care Accounts Supervisor Name Role Phone Ebony Sharp MD PCP Encounter Details Care Team Description Date Type Department Adelaida Olivas MD [address] [facility] [address] [place] [address] 08/19/2016 Hist-Telephone [facility] [address] [facility] [address] [place], [place] [phone] Social History Date Tobacco Use Types Packs/Day [...] Clinic Note - Adelaida Olivas MD - 08/19/2016 9:49 AM REACTOR SERVICE OPERATOR Follow-up for Phone Call Follow-up Details: Prior Authorization submitted through [facility] for Cyc lobenzaprine 5mg. [facility] pharmacy [phone]. . Follow-up by: Edgar Muller on August 19, 2016 9:51 AM Additional Follow-up for Phone Call Additional Follow-up Details: I checked the prior authorization form on [employer] and it states "NO PA REQUIRED" and this is only needed for patient's 65 years of age or older. Message relayed to pharmacist and she states that this went through insurance an d was picked up by the patient on 08/24/16. Additional Follow-up by: Karin Saenz on September 07, 2016 1:01 PM TOR SERVICE OPERATOR documented in this encounter Plan of Treatment Care Team Description [place] [address] [place] [address] [phone] 02/29/2020 Office Visit Urology documented as of this encounter Visit Diagnoses Not on filedocumented in this encounter Additional Health Concerns Resolved Time Infection Noted Time 04/19/2018 12:13 PM CDT Influenza 08/30/2017 10:13 AM REACTOR SERVICE OPERATOR 08/30/2019 1:09 PM REACTOR SERVICE OPERATOR Influenza - Rule Out 08/30/2019 11:32 AM REACTOR SERVICE OPERATOR 09/17/2019 8:17 AM REACTOR SERVICE OPERATOR RSV 08/31/2019 6:35 PM REACTOR SERVICE OPERATOR documented as of this encounter
--- OUTSIDE RECORDS SUMMARY | 2019-11-28 22:34 | XMS REPORT | Encounter Summary ---
Author Author [facility] Organization [facility] Address Unknown Phone Unavailable Care Team Providers Care Lumber Tallier Name Role Phone Ebony Sharp MD PCP Encounter Details Care Team Description Date Type Department Adelaida Olivas MD [address] [facility] [address] [place] [address] 08/07/2016 Hist-Transcript [facility] ion Encounter Specialists [address] [facility] [address] [place], [place] [id number] Social History Date Tobacco Use Types Packs/Day [...] Operative Note - Adelaida Olivas MD - 08/19/2016 7:38 AM TACK PULLER MACHINE Operative Report Left Ankle Imported By: Mindi Bautista 08/19/2016 7:38:03 AM External Attachment: Type: Image Comment: External Document PULLER MACHINE documented in this encounter Plan of Treatment Care Team Description [place] [address] [place] [address] [phone] 02/29/2020 Office Visit Urology documented as of this encounter Visit Diagnoses Not on filedocumented in this encounter Additional Health Concerns Resolved Time Infection Noted Time 04/19/2018 12:13 PM CDT Influenza 08/30/2017 10:13 AM TACK PULLER MACHINE 08/30/2019 1:09 PM TACK PULLER MACHINE Influenza - Rule Out 08/30/2019 11:32 AM TACK PULLER MACHINE 09/17/2019 8:17 AM TACK PULLER MACHINE RSV 08/31/2019 6:35 PM TACK PULLER MACHINE documented as of this encounter
--- OUTSIDE RECORDS SUMMARY | 2019-11-28 22:35 | XMS REPORT | Encounter Summary ---
Author Author [facility] Organization [facility] Address Unknown Phone Unavailable Care Team Providers Care Insulation Cutter Name Role Phone Ebony Sharp MD PCP Reason for Visit * Reason Comments Hospital Follow-up TCM CALL Encounter Details Care Team Description Date Type Department Zee Perez RN Hospital Follow-up (TCM CALL ) 07/03/2016 Telephone [facility] (walk-in clinic) [address] [facility] [address] [place], [place] [phone] Social History Date Tobacco Use Types Packs/Day [...] Telephone Encounter - Zee Perez RN - 07/03/2016 8:55 AM STEMHOLE BORER AND TOPPER [facility] FOLLOW UP / TRANSITIONAL CARE COORDINATION PATIENT NAME/DATE OF Caren Patten (1950) DATE OF LAST OFFICE VISIT: 02/14/16 [facility] FACILITY/ADMISSION DATE: [facility] 06/29/16 DISCHARGE DATE/DISPOSITION: 07/02/16 (Home or Self Care) DISCHARGE DIAGNOSIS: COPD exacerbation HOSPITAL COURSE: Pt was admitted to [facility] on 06/29/16. 65 y.o. female with hx of H [place], IDDM, COPD presents with shortness of breath lasting the last 3-4 days. Asso ciated subjective fever, chills, mildly productive cough. He has intermittent le ft sided chest pain worse with deep inspiration. She was found to be in a COPD exacerbation. She was requiring continuous supplemental oxygen at 2L at admissi on and was started on IV Levaquin, Solu-medrol, and scheduled breathing treatmen ts. She was tapered to oral prednisone the next day. RELEVANT LAB/XRAY FINDING IN HOSPITAL: CXR: IMPRESSION Left basal opacity with partial obscuration of the left hemidiaphragm could reflect atelectasis. Infection not excluded. LABS: RBC 3.84, MCV 100, platelet 132, glucose 311. MEDICATION CHANGES AT DISCHARGE: Start: codeine guaifenesin 5ml Q4 hours PRN, Le vaquin 500mg daily, prednisone 40mg daily. Med changes: amlodopine 2.5 take 5mg daily. STOP: pepcid ADDITIONAL NEEDS (HH, PT/OT, MEDICAL EQUIP, ETC): CONSULTS AT DISCHARGE: CURRENT STATUS: MEDICATION RECONCILIATION: INSTRUCTIONS GIVEN: Left message 07/03/16, 07/06/16 ADDITIONAL NOTES: [facility] COMPUTER FORENSICS INVESTIGATOR: Zee Perez RN HOLE BORER AND TOPPER documented in this encounter Plan of Treatment Care Team Description Date [place] [address] [place] [address] [phone] 02/29/2020 Office Visit Urology documented as of this encounter Visit Diagnoses Not on filedocumented in this encounter
--- OUTSIDE RECORDS SUMMARY | 2019-11-28 22:35 | XMS REPORT | Encounter Summary ---
Author Author [facility] Organization [facility] Address Unknown Phone Unavailable Care Team Providers Care Gas Analyst Name Role Phone Ebony Sharp MD PCP Encounter Details Care Team Description Date Type Department Ebony Sharp MD [address] [facility] [address] [place], [place] [id number] Type 2 diabetes mellitus without complic ation, 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); Hyperlipidemia, unspecified hyperlipidemia type 07/23/2016 Lab [facility] [phone] Social History Date Tobacco Use Types Packs/Day [...] Description Date [place] [address] [place] [address] [phone] 02/29/2020 Office Visit Urology documented as of this encounter Procedures Comments Procedure Name Priority Date/Time Associated Diag nosis THYROID STIMULATING Routine 07/23/2016 Type 2 bela betes mellitus HORMONE 4:28 PM BISQUE GRADER without complicatio n, 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) LIPID PANEL Routine 07/23/2016 Type 2 diabetes mellitus 4:28 PM BISQUE GRADER without complication, 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) Hyperlipidemia, unspecified hyperlipidemia type HEMOGLOBIN A1C Routine 07/23/2016 Type 2 diabetes mellitus 4:28 PM BISQUE GRADER without complication, with long-term current use of insulin ([facility]) documented in this encounter Results * Lipid Panel (07/23/2016 4:28 PM BISQUE GRADER) Cholesterol 200 100 - 200 mg/dL [facility] HDL Cholesterol 49 40 - 110 mg/dL [facility] Non-HDL 151 (H) 0 - 130 mg/dL [facility] Cholesterol [facility] Triglycerides 208 (H) 0 - 150 mg/dL [facility] LDL Cholesterol 109 (H) 0 - 99 mg/dL [facility] Cholesterol/HDL 4.1 0.0 - 4.5 [facility] Ratio [facility] Specimen Performing Organization Address [facility] [place] [facility] Ph one Number [address] [phone] LABORATORIES * Hemoglobin A1C (07/23/2016 4:28 PM B[facility]QUE GR[facility]ER) Hemoglobin A1C 8.6 (H) 4.0 - 5.6 % [facility] Comment: REGIONAL Non-diabetic 4.0 - LABORATORIES 5.6 % Prediabetes 5.7 - 6.4 % Diabetes >= 6.5 % Specimen Performing Organization Address [facility] Ph one Number [address] [phone] LABORATORIES * Thyroid Stimulating Hormone (07/23/2016 4:28 PM [facility]) Thyroid 0.63 0.47 - 4.68 uIU/mL [facility] Stimulating [facility] Hormone LABORATORIES Specimen Performing Organization Address [place]/[facility] [place] Ph one Number [address] [phone] LABORATORIES documented in this encounter Visit Diagnoses Diagnosis Type 2 diabetes mellitus without compli cation, with long-term current use of insulin ([facility]) Hyperlipidemia, unspecified hyperlipide prasanna type documented in this encounter
--- OUTSIDE RECORDS SUMMARY | 2019-11-28 22:35 | XMS REPORT | Encounter Summary ---
Author Author [facility] Organization [facility] Address Unknown Phone Unavailable Care Team Providers Care Dough Mixer Helper Name Role Phone Ebony Sharp MD PCP Reason for Visit * Reason Comments Follow-up Encounter Details Care Team Description Date Type Department Medardo Radford MD [address] [facility] [address] [place] [address] [phone] SASHA (obstructive sleep apnea) (Primary D x); Goldberg-Ekbom syndrome; Parasomnia; Morbid obesity due to excess calories (HCC) 07/10/2016 Office Visit [facility] [address] [facility] [address] [place] [address] Social History Date Tobacco Use Types Packs/Day [...] Signs Reading Time Taken Comments Vital Sign 154/82 07/10/2016 1:08 PM PET AMBASSADOR Blood Pressure 83 07/10/2016 1:08 PM PET AMBASSADOR Pulse - - Temperature 18 07/10/2016 1:08 PM PET AMBASSADOR Respiratory Rate 95% 07/10/2016 1:08 PM PET AMBASSADOR Oxygen Saturation - - Inhaled Oxygen Concentration 108.4 kg (239 lb) 07/10/2016 1:08 PM PET AMBASSADOR Weight 157.5 cm (5' 2") 07/10/2016 1:08 PM PET AMBASSADOR Height 43.71 07/10/2016 1:08 PM PET AMBASSADOR Body Mass Index documented in this encounter Progress Notes * Medardo Radford MD - 07/10/2016 1:20 PM PET AMBASSADOR OUTPATIENT SLEEP FOLLOW UP NOTE DATE: 07/10/2016 PATIENT NAME: Caren Patten : 1950 AGE: 65 y.o. SUBJECTIVE: I had the pleasure of seeing your patient Caren Patten, date of , today in initial sleep follow up visit. I have done a complete review of syst ems also in the electronic medical record.I have reviewed the Past, Social and F amily histories on this patient, reviewed labs and images, and they have been do cumented in the electronic medical record. Caren was accompanied by her daughter, Maddy, who assisted with the history. INTERVAL HISTORY: Patient was last seen on 06/26/16, with the following diagnosi s: SASHA Goldberg Ekbom disease with iron deficiency Parasomnia Patient is here for follow-up primarily regarding clearance for upcoming bariatr ic surgery. Compliance data was reviewed and shows 4 or more hours usage of 89 % with average daily use of 7 hours and 13 minutes with medium pressure of 5, me hunter AHI of 5.5, and minimal leakage of 5.7 L/m. Patient denies any associate d sudden muscle weakness caused by laughter or strong emotion, inability to move while falling sleep or waking up, automatic behavior, and dreaming while awake. No additional concerns are voiced at this time. Allergies: Lisinopril; Metformin; and Sulfa (sulfonamide antibiotics) CURRENT ACTIVE MEDICATIONS: Medication List These changes are accurate as of: 07/10/16 1:14 PM. If you have any questions, ask your nurse or doctor. CONTINUE taking these medications albuterol 90 mcg/actuation HFA inhaler Commonly known as: PROAIR HFA 1 puff, Inhalation, Q4H PRN amitriptyline 25 MG tablet Commonly known as: ELAVIL 25 mg, Oral, Nightly amLODIPine 2.5 MG tablet Commonly known as: NORVASC 5 mg, Oral, Daily, Take one daily. BIOTIN ORAL Oral citalopram 20 mg tablet Commonly known as: CeleXA 20 mg, Oral, Daily codeine-guaifenesin 10-100 mg/5 mL liquid Commonly known as: GUAIFENESIN AC 5 mL, Oral, Q4H PRN fluticasone-vilanterol 200-25 mcg/actuation INHALER Commonly known as: BREO ELLIPTA 1 puff, Inhalation, Daily gabapentin 300 MG capsule Commonly known as: NEURONTIN 300 mg, Oral, TID HYDROcodone-acetaminophen 5-325 mg per tablet Commonly known as: NORCO 1 tablet, Oral, Q6H PRN, Do not drive while taking this medication. insulin syringe-needle U-100 0.3 mL 31 gauge x 5/16 Syrg Type 2 diabetes E11.9 ipratropium-albuterol 0.5-3 mg/3 mL nebulizer Commonly known as: DUO-NEB 3 mL, Inhalation, 4x Daily LANTUS 100 unit/mL injection Generic drug: insulin glargine INJECT 15 UNITS UNDER THE SKIN EVERY EVENING levoFLOXacin 500 MG tablet Commonly known as: LEVAQUIN 500 mg, Oral, Daily lidocaine 5 % ointment Commonly known as: XYLOCAINE APPLY EXTERNALLY TO THE AFFECTED AREA 1 TO 4 TIMES DAILY NEEDED metoprolol tartrate 100 MG tablet Commonly known as: LOPRESSOR 100 mg, Oral, BID omeprazole 20 MG capsule Commonly known as: PriLOSEC No dose, route, or frequency recorded. OXYGEN THERAPY PRN predniSONE 20 MG tablet Commonly known as: DELTASONE 40 mg, Oral, Daily simvastatin 20 MG tablet Commonly known as: ZOCOR 20 mg, Oral, Nightly PHYSICAL EXAM: Blood pressure 154/82, pulse 83, resp. rate 18, height 1.575 m (5' 2"), weight 1 08.4 kg (239 lb), SpO2 95 %. VITAL SIGNS: Visit Vitals BP 154/82 (BP Location: Left arm, Patient Position: Sitting, Cuff size: Larg e) Pulse 83 Resp 18 Ht 1.575 m (5' 2") Wt 108.4 kg (239 lb) SpO2 95% BMI 43.71 kg/m2 Body mass index is 43.71 kg/(m^2). General Appearance: As noted below; morbid obesity . Neurologic: Mental Status: Awake, alert and oriented x 3. Cranial Nerves: Normal. Motor: normal bulk and tone. Moving all 4 limbs. Sensroy: grossly intact to light touch. Coordination: No dystaxia on repetitive and rapid alternating movements. Reflexes symmetrical. Gait: Stable. LAB DATA: Chemistry Component Value Date/Time NA 141 06/30/2016416 K 4.5 06/30/2016416 CL 102 06/30/2016416 CO2 26 06/30/2016416 BUN 14 06/30/2016416 GLU 311 (H) 06/30/2016416 Component Value Date/Time CALCIUM 8.7 06/30/2016416 ALKPHOS 77 06/29/2016 1633 AST 36 06/29/2016 1633 ALT 46 06/29/2016 1633 Lab Results Component Value Date HGBA1C 6.6 (H) 01/06/2016 No results found for: PHENYTOIN, PHENOBARB, VALPROATE, CBMZ Lab Results Component Value Date FERRITIN 201 (H) 02/21/2016 Lab Results Component Value Date CHOL 266 (H) 09/24/2015 Lab Results Component Value Date HDL 83 09/24/2015 No results found for: LDLCALC Lab Results Component Value Date TRIG 203 (H) 09/24/2015 Lab Results Component Value Date CHOLHDL 3.2 09/24/2015 RECENT STUDIES: No results found. ASSESSMENT: Encounter Diagnoses Name SNOMED CT(R) Primary? SASHA (obstructive sleep apnea) OBSTRUCTIVE SLEEP APNEA SYNDROME Yes Goldberg-Ekbom syndrome RESTLESS LEGS Parasomnia PARASOMNIA Morbid obesity due to excess calories MORBID OBESITY PLAN: Compliance with CPAP is excellent. I encouraged patient to continue with the current pattern of usage. Patient does not require any CPAP accessories at this time. New order for C PAP accessory was placed. Patient was given clearance for bariatric surgery. Patient is on gabapentin for treatment of Goldberg Ekbom disease. No refills ar e required at this time. The basic principal of lifestyle and beavior modification was discussed with patient, which primarily consists of portion control with diet, and activity/exe rcise, as tolerated. Follow up is recommended in one year. [facility] any additional concerns or questions. More than 50% of this time, 30 minutes, was spent in evaluation, counselling, an d coordination of care. Please note that portions of this letter were generated using voice-recognition software. Please excuse any typographic or grammatical errors. Physician Attestation: I have personally interviewed and examined the patient. The note as edited yamile beard is my own. . Pager: [phone]. AMBASSADOR documented in this encounter Plan of Treatment Care Team Description [place] [address] [place] [address] [phone] 02/29/2020 Office Visit Urology documented as of this encounter Visit Diagnoses Diagnosis SASHA (obstructive sleep apnea) Obstructive sleep apnea (adult) (pediat amita) Goldberg-Ekbom syndrome Parasomnia Other dysfunctions of sleep stages or a rousal from sleep Morbid obesity due to excess calories ( HCC) documented in this encounter
--- OUTSIDE RECORDS SUMMARY | 2019-11-28 22:35 | XMS REPORT | Encounter Summary ---
Author Author [facility] Organization [facility] Address Unknown Phone Unavailable Care Team Providers Care Transportation Department Supervisor Name Role Phone Ebony Sharp MD PCP Reason for Visit * Reason Comments Other Encounter Details Care Team Description Date Type Department Ebony Sharp MD [address] [facility] [address] [place] [address] [phone] Other 07/16/2016 Refill [facility] y [facility] (walk-in clinic) [address] [facility] [address] [place], [place] [id number] Social History Date Tobacco Use Types Packs/Day [...] Description Date [place] [address] [place] [address] [phone] 02/29/2020 Office Visit Urology documented as of this encounter Visit Diagnoses Not on filedocumented in this encounter
--- OUTSIDE RECORDS SUMMARY | 2019-11-28 22:35 | XMS REPORT | Encounter Summary ---
Author Author [facility] Organization [facility] Address Unknown Phone Unavailable Care Team Providers Care Director Report Name Role Phone Ebony Sharp MD PCP Reason for Visit * Reason Comments Follow-up 3mth fu Encounter Details Care Team Description Date Type Department Ebony Sharp MD [address] [facility] [address] [place] [address] Type 2 diabetes mellitus without complic ation, 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) (Primary Dx); Morbid obesity due to excess calories (HCC); Hyperlipidemia, unspecified hyperlipidemia type 07/23/2016 Office Visit [facility] (walk-in clinic) [address] [facility] [address] [place] [address] Social History Date Tobacco Use [...] Signs Reading Time Taken Comments Vital Sign 134/80 07/23/2016 3:48 PM [facility] Blood Pressure 74 07/23/2016 3:48 PM [facility] Pulse - - Temperature - - Respiratory Rate - - Oxygen Saturation - - Inhaled Oxygen Concentration 108.4 kg (239 lb) 07/23/2016 3:48 PM [facility] Weight 157.5 cm (5' 2") 07/23/2016 3:48 PM [facility] Height 43.71 07/23/2016 3:48 PM [facility] Body Mass Index documented in this encounter Progress Notes * Ebony Sharp MD - 07/23/2016 3:30 PM [facility] CC: Follow-up (3mth fu ) HPI : Caren Patten is a 65 y.o. female who presents with complaints of Follow-up (3mth fu ) Here for 3 month follow up. 1. HTN - controlled 2. Dm2 - due for labs. Last check 6.6. 3. HLD - on statin ALLERGIES: Allergies Allergen Reactions Lisinopril Anaphylaxis Metformin Sulfa (Sulfonamide Antibiotics) CURRENT MEDICATIONS: Current Outpatient Prescriptions Medication Sig [...] eve y. Take one daily. 90 tablet 3 BIOTIN ORAL Take by mouth. BREO ELLIPTA 100-25 mcg/dose INHALER citalopram (CELEXA) 20 MG tablet Take 1 tablet (20 mg total) by mouth daily. 90 tablet 3 fluticasone-vilanterol (BREO ELLIPTA) 200-25 mcg/actuation INHALER Inhale 1 puff daily. 3 each 3 gabapentin (NEURONTIN) 300 MG capsule Take 1 capsule (300 mg total) by mouth 3 (three) times a day. 270 capsule 3 HYDROcodone-acetaminophen (NORCO) 5-325 mg per tablet Take one tablet by tanna th every 6 (six) hours as needed for pain. Do not drive while taking this medica tion. 20 tablet 0 insulin syringe-needle U-100 0.3 mL 31 x 5/16" Syrg Type 2 diabetes E11.9 10 0 each 0 ipratropium-albuterol (DUO-NEB) 0.5-3 mg/3 mL nebulizer Inhale 3 mL 4 (four) times a day. 360 mL 11 LANTUS 100 unit/mL injection INJECT 15 UNITS UNDER THE SKIN EVERY EVENING 10 mL 0 lidocaine (XYLOCAINE) 5 % ointment APPLY EXTERNALLY TO THE AFFECTED AREA 1 T O 4 TIMES DAILY NEEDED 30 g 0 metoprolol tartrate (LOPRESSOR) 100 MG tablet Take 1 tablet (100 mg total) b y mouth 2 (two) times a day. 180 tablet 3 omeprazole (PRILOSEC) 20 MG capsule OXYGEN THERAPY as needed. simvastatin (ZOCOR) 20 MG tablet Take 1 tablet (20 mg total) by mouth nightl y. 90 tablet 3 No current facility-administered medications for this visit. LAB SUMMARY: Lab Results Component Value Date WBC 6.26 06/30/2016 HGB 12.3 06/30/2016 HCT 38 06/30/2016 PLT 132 (L) 06/30/2016 CHOL 266 (H) 09/24/2015 TRIG 203 (H) 09/24/2015 HDL 83 09/24/2015 ALT 46 06/29/2016 AST 36 06/29/2016 NA 141 06/30/2016 K 4.5 06/30/2016 CL 102 06/30/2016 BUN 14 06/30/2016 CO2 26 06/30/2016 TSH 0.27 (L) 12/06/2015 INR 0.9 06/05/2016 HGBA1C 6.6 (H) 01/06/2016 MICROALBUR 7.20 09/24/2015 SOCIAL HISTORY: Social History Social History Marital status: Single Spouse name: N/A Number of children: N/A Years of education: N/A Social History Main Topics Smoking status: Former Smoker Quit date: 09/14/2009 Smokeless tobacco: Never Used Alcohol use No Drug use: No Sexual activity: No Other Topics Concern None Social History Narrative HEALTH MAINTENANCE: Health Maintenance Topic Date Due Diabetes Mellitus Ophthalmology Exam 1950 Diabetes Mellitus Foot Exam 1962 Cervical Cancer Screening 1973 Mammogram Screening 01/05/2013 Lipid Screening 09/24/2016 Diabetes Mellitus Urine Microalbumin 09/24/2016 Diabetes Mellitus Hemoglobin A1c 01/05/2017 Colorectal Screening via Colonoscopy 12/24/2019 Pneumococcal Immunization 19-64 Low/Medium Risk Completed Influenza Vaccine Completed Immunization History Administered Date(s) Administered Influenza QIV (IM) 05/09/2016 Pneumococcal Polysaccharide 05/09/2016 Review of Systems Constitutional: Negative. Respiratory: Negative. Cardiovascular: Negative. Gastrointestinal: Negative. Musculoskeletal: Negative. Psychiatric/Behavioral: Negative. OBJECTIVE Vitals: 07/23/16 1548 BP: 134/80 BP Location: Left arm Pulse: 74 Weight: 108.4 kg (239 lb) Height: 1.575 m (5' 2") Estimated body mass index is 43.71 kg/(m^2) as calculated from the following: Height as of this encounter: 1.575 m (5' 2"). Weight as of this encounter: 108.4 kg (239 lb). Physical Exam Constitutional: She appears well-developed [...] for this visit: Type 2 diabetes mellitus without complication, with long-term current use of ins ulin - Thyroid Stimulating Hormone; Future - Hemoglobin A1C; Future - Lipid Panel; Future Morbid obesity due to excess calories Hyperlipidemia, unspecified hyperlipidemia type - Lipid Panel; Future 1. DM2 - check a1c 2. Morbid obesity - she is going to do bariatric surgery. She is very excited to get surgery done. Her daugher has done really well with it. 3. Slightly overactive thyroid - check tsh. 4. HLd - check lipid - will get a baseline befor she does her bariatric surgery . Ebony Sharp MD [facility] documented in this encounter Plan of Treatment Care Team Description [place] [address] [place] [address] [phone] 02/29/2020 Office Visit Urology documented as of this encounter Results * Lipid Panel (07/23/2016 4:28 PM [facility]) Cholesterol 200 100 - 200 mg/dL [facility] HDL Cholesterol 49 40 - 110 mg/dL [facility] Non-HDL 151 (H) 0 - 130 mg/dL [facility] Triglycerides 208 (H) 0 - 150 mg/dL [facility] LDL Cholesterol 109 (H) 0 - 99 mg/dL [facility] Cholesterol/HDL 4.1 0.0 - 4.5 [facility] Ratio REG[facility]IES Specimen Performing Organization Address [facility] one Number [facility] [address] [place] [address] LABORATORIES * Hemoglobin A1C (07/23/2016 4:28 PM [facility]) Hemoglobin A1C 8.6 (H) 4.0 - 5.6 % [facility] Comment: REGIONAL Non-diabetic 4.0 - LABORATORIES 5.6 % Prediabetes 5.7 - 6.4 % Diabetes >= 6.5 % Specimen Performing Organization Address [facility] one Number [facility] [address] [place] [address] LABORATORIES * Thyroid Stimulating Hormone (07/23/2016 4:28 PM [facility]) Thyroid 0.63 0.47 - 4.68 uIU/mL [facility] Stimulating [facility] Hormone LABORATORIES Specimen Performing Organization Address [facility] one Number [address] [address] LABORATORIES documented in this encounter Visit Diagnoses Diagnosis Type 2 diabetes mellitus without compli cation, 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) Morbid obesity due to excess calories ( HCC) Hyperlipidemia, unspecified hyperlipide prasanna type documented in this encounter
--- OUTSIDE RECORDS SUMMARY | 2019-11-28 22:35 | XMS REPORT | Encounter Summary ---
Author Author [facility] Organization [facility] Address Unknown Phone Unavailable Care Team Providers Care Media Relations Specialist Name Role Phone Ebony Sharp MD PCP Reason for Visit * Reason Comments Chest pain c/o SOA x 2 days, states sh e cannot use her CPAP and breathe. States she thinks she is having a COPD exacerbatio n, states chest pain has been three days intermittently. States it is sque ezing on the left, non-radiating with diaphoresis, dizziness, nausea. Shortness of Breath * Auth/Cert Referred By Contact Referred To Contact Status Reason Specialty Diagnoses / Procedures Diagnoses Hypoxia COPD exacerbation (HCC) Pneumonia of both lungs due to infectious organism, unspecified part of lung COPD exacerbation COPD exacerbation Encounter Details Care Team Description Date Type Department Tavon Orellana MD no forwarding address Jackson Gonzalez MD [address] [place] [address] [phone] , Katja, DO [address] [place] [address] [phone] Walker Stout MD [address] [place] [address] [phone] COPD exacerbation (HCC) (Primary Dx); Pneumonia of both lungs due to infectious organism, unspecified part of lung; Hypoxia 06/29/2016 [facility] 07/02/[address] [facility], [place] [id number] Social History Date Tobacco Use Types Packs/Day [...] Signs Reading Time Taken Comments Vital Sign 133/78 07/02/2016 1:56 PM SOFTWARE ENGINEER [employer] Blood Pressure 79 07/02/2016 1:56 PM SOFTWARE ENGINEER [employer] Pulse 36.8 C (98.3 F) 07/02/2016 1:56 PM SOFTWARE ENGINEER SAL[employer] Temperature 20 07/02/2016 1:56 PM SOFTWARE ENGINEER SALES Respiratory Rate 95% 07/02/2016 1:56 PM SOFTWARE ENGINEER SALES Oxygen Saturation - - Inhaled Oxygen Concentration 110.8 kg (244 lb 4.3 oz) 07/01/2016 5:18 AM SOFTWARE ENGINEER SALES Weight 157.5 cm (5' 2") 06/29/2016 8:05 PM SOFTWARE ENGINEER [employer] Height 44.68 06/29/2016 8:05 PM SOFTWARE ENGINEER SALES Body Mass Index documented in this encounter Discharge Summaries * Ying Chavez RN PUBLIC RELATIONS SENIOR ASSOCIATE - 07/02/2016 3:08 PM SOFTWARE ENGINEER SALES [facility] VICE PRINCIPAL Hospitalist - Discharge Summary Patient Name: Isiah Benítez Date of : 1950 Date of Admission: 06/29/2016 2:56 PM Length of Stay: 3 Days Date of Discharge: 07/02/2016 3:08 PM Primary Care Physician: Ebony Sharp MD; Reason for Hospital Admission and Brief Hospital Course: Ms. Isiah Benítez is a 65 y.o. female with a history of COPD, DM, HTN, and HLD w ho was admitted on 06/29/2016 with COPD exacerbation after failed outpatient ther apy. She was requiring continuous supplemental oxygen at 2L at admission and was star lexis on IV Levaquin, Solu-medrol, and scheduled breathing treatments. She was ta pered to oral prednisone the next day. Her glucose levels have been elevated du e to steroids, controlled with sliding scale insulin. Her breathing has improve d and she is able to maintain oxygen saturations 90-92% on room air at rest. Sh e saturated 88% with ambulation but has oxygen at home she uses on prn basis. H er lungs are clear and she feels her cough is improved but still present and maggie causing chest discomfort. She will continue Guaifenesin AC cough syrup at [facility]. The patient's discharge plan was discussed fully with the patient and/or family. All questions were answered. Disposition: Discharged in good condition to home. Problems Addressed During This Admission: Principal Problem (Resolved): COPD exacerbation Active Problems: IDDM (insulin dependent diabetes mellitus) HTN (hypertension) SASHA on CPAP Resolved Problems: Acute on chronic respiratory failure with hypoxia Tachycardia Code Status: Full Code Recommended Diet: low fat/cholesterol, 2 gm sodium and 75 gm consistent carb Activity/Restrictions: activity as tolerated Scheduled Follow Up Appointments/Studies ([facility]): Future Appointments Date Time Provider Department Center 07/23/2016 3:30 PM Ebony Sharp MD [facility] Additional Discharge Follow Up: Dr Ebony Sharp MD, primary care physician in 7-10 days. Pulmonology as previously scheduled Additional Labs Appointments/Diagnostic Studies: None Allergies Allergen Reactions Lisinopril Anaphylaxis Metformin Sulfa (Sulfonamide Antibiotics) Discharge Medications New Medications Indication(s) codeine-guaifenesin 10-100 mg/5 mL liquid Commonly known as: GUAIFENESIN AC 5 mL, Oral, Q4H PRN levoFLOXacin 500 MG tablet Commonly known as: LEVAQUIN 500 mg, Oral, Daily Start taking on: 07/03/2016 predniSONE 20 MG tablet Commonly known as: DELTASONE 40 mg, Oral, Daily Modified Medications Indication(s) amLODIPine 2.5 MG tablet Commonly known as: NORVASC 5 mg, Oral, Daily, Take one daily. What changed: how much to take Medications To Continue Indication(s) albuterol 90 mcg/actuation HFA inhaler Commonly known as: PROAIR HFA 1 puff, Inhalation, Q4H PRN amitriptyline 25 MG tablet Commonly known as: ELAVIL 25 mg, Oral, Nightly BIOTIN ORAL Oral citalopram 20 mg tablet Commonly known as: CeleXA 20 mg, Oral, Daily fluticasone-vilanterol 200-25 mcg/actuation INHALER Commonly known as: [...] known as: ZOCOR 20 mg, Oral, Nightly Stopped Medications famotidine 20 MG tablet Commonly known as: PEPCID FLUVIRIN [id number] 45 mcg (15 mcg x 3)/0.5 mL Susp Generic drug: flu vaccine ts 2016-(4yr up) PNEUMOVAX 23 25 mcg/0.5 mL injection Generic drug: pneumococcal vaccine Vital Signs: Blood Pressure: BP: 133/78 Pulse: Pulse: 79 Temperature: Temp: 36.8 C (98.3 F) Respirations: Resp: 20 Admission Weight: Weight: 105.7 kg (233 lb) O2 Saturation: SpO2: 95 % Discharge Weight: Weight: 110.8 kg (244 lb 4.3 oz) BMI: Body mass index is 44.68 kg/(m^2). Physical Exam: Gen: A/Ox3, NAD CV: RRR, no murmurs Resp: CTAB Abd: S/ND/NT, +BS Ext: No c/c/e MS: Mild chest TTP Neuro: No focal neurologic deficits Labs - Last 36 hours: Recent Results (from the past 36 hour(s)) GLUCOSE POC Collection Time: 07/01/16 7:39 AM Result Value Ref Range Glucose POC 215 (H) 70 - 100 mg/dL GLUCOSE POC Collection Time: 07/01/16 11:53 AM Result Value Ref Range Glucose POC 232 (H) 70 - 100 mg/dL GLUCOSE POC Collection Time: 07/01/16 4:53 PM Result Value Ref Range Glucose POC 324 (H) 70 - 100 mg/dL GLUCOSE POC Collection Time: 07/01/16 8:45 PM Result Value Ref Range Glucose POC 273 (H) 70 - 100 mg/dL GLUCOSE POC Collection Time: 07/01/16 11:52 PM Result Value Ref Range Glucose POC 243 (H) 70 - 100 mg/dL GLUCOSE POC Collection Time: 07/02/16 2:29 AM Result Value Ref Range Glucose POC 215 (H) 70 - 100 mg/dL GLUCOSE POC Collection Time: 07/02/16 7:18 AM Result Value Ref Range Glucose POC 142 (H) 70 - 100 mg/dL GLUCOSE POC Collection Time: 07/02/16 11:07 AM Result Value Ref Range Glucose POC 168 (H) 70 - 100 mg/dL Imaging during this encounter: Ct Angio Chest Result Date: 06/30/2016 No evidence of pulmonary thromboembolic disease. READING SITE: [facility] ATTESTATION STATEMENT: The Staff Radiologist has personally reviewed this study and agrees with the findings in this report. The Staff Radiologist has personally reviewed the images and dictated, reviewed, or edited the final report. Xr Chest Single View Frontal Result Date: 06/29/2016 Left basal opacity with partial obscuration of the left hemidiaphragm could reflect atelectasis. Infection not excluded. Consider PA and lateral chest radiographs for further characterization when patient condition permits. READING SITE: [facility] Cardiac Studies during this encouter: No results found. Cultures - All Cultures this encounter: Results for orders placed or performed during the hospital encounter of 06/29/16 Influenza AB Antigen Collection Time: 06/29/16 3:48 PM - Influenza A Antigen Negative Negative Influenza B Antigen Negative Negative Culture, Sputum with Gram Stain Collection Time: 06/29/16 3:54 PM - Culture Result Gram stain indicates specimen is not wholesale representative of lower respiratory tract secretions. Culture not performed. Please consult Microbiology if clinical considerations warrant complete processing of this specimen. Specimen will be held 5 days. Culture Result If further workup of this specimen is warranted please phone [phone]) Culture, Blood (Separate sites 15 minutes apart) Collection Time: 06/29/16 4:01 PM - Culture Result No growth at 2 days Culture, Blood (Separate sites 15 minutes apart) Collection Time: 06/29/16 6:30 PM - Culture Result No growth at 2 days Additional Studies: None Procedures: None Time spent on this inpatient discharge was greater than 30 minutes. Ying Chavez RN APRN [facility] Please page through physician paging. . WARE ENGINEER SALES documented in this encounter Discharge Instructions * Attachments The following attachments cannot be sent through Care Everywhere.* COPD FLARE (KENYAN) * COUGHING TECHNIQUES, DISCHARGE INSTRUCTIONS (KENYAN) * OXYGEN, USING AT HOME (KENYAN) * CODEINE PHOSPHATE, GUAIFENESIN ORAL SYRUP (KENYAN) * PREDNISOLONE ORAL TABLET (KENYAN) * LEVOFLOXACIN ORAL TABLET (KENYAN) documented in this encounter Medications at Time [...] tablet (20 mg total) by mouth daily. 07/02/2016 07/23/2016 codeine-guaifenesin Take 5 mL by 120 mL 0 (GUAIFENESIN AC) 10-100 mouth every 4 mg/5 mL liquid (four) hours as needed for cough. 02/14/2016 04/08/2017 fluticasone-vilanterol Inhale 1 puff 3 each 3 (BREO ELLIPTA) 200-25 daily. mcg/actuation INHALERIndications: maintenance therapy for asthma 02/14/2016 02/18/2017 gabapentin (NEURONTIN) Take 1 270 capsule 3 300 MG capsule capsule (300 mg total) by mouth 3 (three) times a day. 09/05/2015 08/07/2016 HYDROcodone-acetaminophen Take one 20 tablet 0 (NORCO) 5-325 mg per tablet by tablet mouth every 6 (six) hours as needed for pain. Do not drive while taking this medication. 12/02/2015 11/05/2016 insulin syringe-needle Type 2 100 each 0 U-100 0.3 mL 31 x /" diabetes Syrg E11.9 03/02/2016 07/16/2016 LANTUS 100 unit/mL INJECT 15 10 mL 0 injection UNITS UNDER THE SKIN EVERY EVENING 07/03/2016 07/23/2016 levoFLOXacin (LEVAQUIN) Take 1 tablet 1 tablet 0 500 MG tablet (500 mg total) by mouth daily. 05/22/2016 04/08/2017 lidocaine (XYLOCAINE) 5 % APPLY 30 g 0 ointment EXTERNALLY TO THE AFFECTED AREA 1 TO 4 TIMES DAILY NEEDED 02/14/2016 03/29/2017 metoprolol tartrate Take 1 tablet 180 tablet 3 (LOPRESSOR) 100 MG tablet (100 mg total) by mouth 2 (two) times a day. 05/20/2016 02/04/2017 omeprazole (PRILOSEC) 20 0 MG capsule 07/02/2016 07/23/2016 predniSONE (DELTASONE) 20 Take 2 2 tablet 0 MG tablet tablets (40 mg total) by mouth daily. 02/14/2016 04/08/2017 simvastatin (ZOCOR) 20 MG Take 1 tablet 90 tablet 3 tablet (20 mg total) by mouth nightly. documented as of this encounter Progress Notes * Xiomara Brower RN - 07/02/2016 9:36 AM SOFTWARE ENGINEER SALES LACE 12 PCP: [place]. Ebony Sharp [place] [place] care program resident to schedule f/u appointment per protocol Xiomara Brower RN BSN Toll Mechanic [phone] WARE ENGINEER SALES * Zo Juan LMSW - 07/01/2016 11:07 AM SOFTWARE ENGINEER SALES Pt was alert, oriented and agreeable to completing initial assessment and discha rge planning. PCP, pharm and Rx has been confirmed. Pt stated she has an AD, ирина ntified daughter as her wholesale representative ( SW requested copy of document). Pt is c urrently admitted with COPD exacerbation and SOA.Pt reported she is independent, disabled and resides with daughter and son in law in their home. Pt has a cane, walker and wheelchair to assist with ambulation and utilizes 3L of Oxygen at [facility] ( provider is [facility]). Pt reported she also has a C-PCP provided by Marsha wilkerson. Pt has declined additional resources or assistance with living/medical ex penses at this time. Pt stated she utilized HH 4 yrs ago with 2 knee replacement s, denies SNF hx. Pt will return home self care at this time. SW will remain amaury ilable to assist with DC needs. Zo Luna FAUCET POLISHER,MANAGER APPLE [phone] WARE ENGINEER SALES * Xiomara Mayen RN PUBLIC RELATIONS SENIOR ASSOCIATE - 07/01/2016 6:37 AM SOFTWARE ENGINEER SALES [facility] VICE PRINCIPAL Hospitalist - Progress Note Subjective Chief Complaint: follow up for COPD exacerbation HPI: Reports feeling somewhat better today. Continues to have pain with cough or deep breath, however norco and robitussin with codeine helpful. She reports noemi rtness of air and wheezing with ambulation. She states that she is on home oxyge n prn at 2L, usually after ambulation and with her c-pap at night. No abdominal pain, nausea, fever/chills or calf pain. Review of Systems: A complete 10-point review of systems was performed, includin g cardiovascular and pulmonary, and was negative except as noted above. Objective Vital Signs: Blood Pressure: BP: 120/74 Pulse: Pulse: 92 Temperature: Temp: 36.4 C (97.6 F) Respirations: Resp: 18 O2 Saturation: SpO2: 94 % Admission Weight: Weight: 105.7 kg (233 lb) BMI: Body mass index is 44.68 kg/(m^ 2). Intake/Output Summary (Last 24 hours) at 07/01/16 0637 Last data filed at 07/01/16 0121 Gross per 24 hour Intake 1700 ml Output 1400 ml Net 300 ml Physical Exam: Gen: A/Ox3, NAD; appears comfortable CV: RRR, no murmurs Resp: Slightly diminished, but clear, no wheezing Abd: S/ND/NT, +BS Ext: No edema Neuro: No focal neurologic deficits Assessment/Plan Ms. Isiah Benítez is a 65 y.o. female with hx of HTN, IDDM, COPD presents with s hortness of breath, failed OP therapy. Likely COPD exacerbation. Started on Leva zach, steroids, breathing treatments and supplemental oxygen, with improvement. * COPD exacerbation Pt mildly hypoxemic on admit; remained 88% on room air overnight, still requirin g supplemental oxygen CXR with Left basal opacity with partial obscuration of the left hemidiaphragm c ould reflect atelectasis. Infection not excluded. CTA negative for PE 2/4 SIRS criteria --HR and RR; afebrile; wbc 6--unlikely sepsis, likely due to c opd exacerbation procal < 0.05 --continue levaquin, steroids and breathing treatments --RATE protocol --titrate oxygen to sats > 92% --check procal Acute on chronic respiratory failure with hypoxia sats 85% on room air on admit Overnight on 06/30 , sats continued to be 88% on room air Reports being on home oxygen PRN at 2L , usually after exertion or nightly with c-pap --continue abx --steroids, switched to oral this am --rate protocol --oxygen, titrate to sats > 92% IDDM (insulin dependent diabetes mellitus) suboptimal control, likely due to steroids Lantus increased back to home dose; blood sugars now 200's instead of 300's --increase lantus to 17 --continue correction factor --CC diet Tachycardia Likely multifactorial, receiving breathing treatments, metoprolol held due to co pd exacerbation; Improved with addition of metoprolol; HR now in 90[address] --continue metoprolol HTN (hypertension) Normotensive --continue metoprolol --continue amlodipine --PRNS SASHA on CPAP Recent sleep study (prior to gastric bypass surgery)--started on home c-pap with supplemental oxygen --may use home c-pap equipment nightly Supportive Documentation See my orders for additional details regarding this patients treatment plan. Status: Inpatient Room: 0 Diet: Diet-Low Fat/Chol, 2gm Na, Consistent Carbohydrate Code Status: Full Code VTE Prevention: As noted below. VTE Orders heparin (porcine) 5,000 unit/mL injection 5,000 Units Every [address] sequential compression device Once [place] (if applicable): Laboratory Data: Available labs in the last 36 hours were reviewed and pertinent findings in the assessment/plan. Recent Results (from the past 36 hour(s)) GLUCOSE POC Collection Time: 06/29/16 8:38 PM Result Value Ref Range Glucose POC 233 (H) 70 - 100 mg/dL Respiratory Panel by PCR Collection Time: 06/29/16 9:55 PM Result Value Ref Range Adenovirus Not Detected Not Detected Coronavirus Not Detected Not Detected Human Metapneumovirus (hMPV) Not Detected Not Detected Human Rhinovirus Enterovirus Not Detected Not Detected Influenza A Not Detected Not Detected Influenza B Not Detected Not Detected Parainfluenza Virus Not Detected Not Detected Respiratory Syncytial Virus Pl Not Detected Not Detected Bordetella pertussis Not Detected Not Detected Chlamydophila pneumoniae Not Detected Not Detected Mycoplasma pneumoniae Not Detected Not Detected Source NASOPHAR GLUCOSE POC Collection Time: 06/30/16 12:56 AM Result Value Ref Range Glucose POC 201 (H) 70 - 100 mg/dL Basic Metabolic Panel Collection Time: 06/30/16 4:17 AM Result Value Ref Range Sodium 141 133 - 147 MEQ/L Potassium 4.5 3.5 - 5.3 MEQ/L Chloride 102 96 - 112 MEQ/L Carbon Dioxide 26 20 - 32 MEQ/L Anion Gap 13 5 - 17 Calcium 8.7 8.4 - 10.5 mg/dL Glucose 311 (H) 70 - 100 mg/dL Blood Urea Nitrogen 14 7 - 26 mg/dL Creatinine 0.7 0.4 - 1.1 mg/dL GFR Female AA 101 60 - 200 GFR Female Non-AA 85 60 - 200 Complete Blood Count Collection Time: 06/30/16 4:17 AM Result Value Ref Range WBC 6.26 4.00 - 11.00 TH/uL RBC 3.84 (L) 4.00 - 5.00 MIL/uL Hemoglobin 12.3 12.0 - 15.0 g/dL Hematocrit 38 36 - 45 % MCV 100 (H) 80 - 99 fL MCH 32 27 - 34 pg MCHC 32 32 - 36 % RDW 13.4 9.0 - 14.5 % Platelet Count 132 (L) 140 - 400 TH/uL MPV 9.6 9.4 - 12.3 fL Procalcitonin Collection Time: 06/30/16 4:17 AM Result Value Ref Range Procalcitonin <0.05 0.00 - 0.10 ng/mL GLUCOSE POC Collection Time: 06/30/16 7:47 AM Result Value Ref Range Glucose POC 348 (H) 70 - 100 mg/dL GLUCOSE POC Collection Time: 06/30/16 11:37 AM Result Value Ref Range Glucose POC 353 (H) 70 - 100 mg/dL GLUCOSE POC Collection Time: 06/30/16 4:27 PM Result Value Ref Range Glucose POC 384 (H) 70 - 100 mg/dL GLUCOSE POC Collection Time: 06/30/16 8:23 PM Result Value Ref Range Glucose POC 336 (H) 70 - 100 mg/dL Radiology Imaging: Available imaging in the last 48 hours were reviewed and pert inent findings in the assessment/plan. Ct Angio Chest Result Date: 06/30/2016 No evidence of pulmonary thromboembolic disease. READING SITE: [facility] ATTESTATION STATEMENT: The Staff Radiologist has personally reviewed this study and agrees with the findings in this report. The Staff Radiologist has personally reviewed the images and dictated, reviewed, or edited the final report. Xr Chest Single View Frontal Result Date: 06/29/2016 Left basal opacity with partial obscuration of the left hemidiaphragm could reflect atelectasis. Infection not excluded. Consider PA and lateral chest radiographs for further characterization when patient condition permits. READING SITE: [facility] Echocardiogram Studies: Available studies in the last 7 days were reviewed and p ertinent findings in the assessment/plan. No results found. Medications: Active medications were reviewed and changes were made as indicated in the assessment/plan. Please see the orders for details. Current Facility-Administered Medications: amitriptyline 25 mg Oral Nightly amLODIPine 5 mg Oral Daily citalopram 20 mg Oral Daily fluticasone-vilanterol 1 puff Inhalation Daily gabapentin 300 mg Oral TID heparin (porcine) 5,000 Units Subcutaneous Q8H insulin glargine 15 Units Subcutaneous Nightly insulin lispro 2-12 Units Subcutaneous 4 times daily before meals and nightly ipratropium-albuterol 3 mL Inhalation 4x Daily levofloxacin 500 mg Intravenous Daily metoprolol tartrate 100 mg Oral BID pantoprazole 40 mg Oral QAM AC pravastatin 40 mg Oral Nightly predniSONE 40 mg Oral Daily Current Facility-Administered Medications: acetaminophen 325-650 mg Oral Q6H PRN Or acetaminophen 325-650 mg Rectal Q6H PRN ALPRAZolam 0.25 mg Oral Q6H PRN codeine-guaifenesin 5 mL Oral Q4H PRN dextrose 25-50 mL Intravenous PRN fentaNYL 25-50 mcg Intravenous Q4H PRN glucagon 1 mg Intramuscular PRN Or glucagon 1 mg Subcutaneous PRN guaiFENesin 200 mg Oral Q4H PRN hydralazine 10 mg Intravenous Q4H PRN HYDROcodone-acetaminophen 1 tablet Oral Q6H PRN ondansetron 4 mg Intravenous Q6H PRN polyethylene glycol 17 g Oral Daily PRN potassium chloride 20-60 mEq Oral PRN potassium chloride 20-60 mEq Oral PRN potassium chloride 20 mEq Intravenous PRN sodium chloride 0.9% 25 mL Intravenous Continuous PRN Xiomara Mayen RN PUBLIC RELATIONS SENIOR ASSOCIATE [facility] Please page through physician paging. . WARE ENGINEER SALES * Xiomara Mayen RN PUBLIC RELATIONS SENIOR ASSOCIATE - 06/30/2016 7:13 AM SOFTWARE ENGINEER SALES [facility] VICE PRINCIPAL Hospitalist - Progress Note Subjective Chief Complaint: Follow up for shortness of air HPI: Patient reports continued malaise, general body aches from frequent coughin g. Influenza negative. Afebrile. Continues to have productive cough, shortness o f air, requiring supplemental oxygen to maintain oxygen saturations. No fever/ch ills or chest pain overnight. Eating and drinking adequately. Blood sugars eleva lexis in 300's, likely due to steroids, patient reports home dose of lantus is 15 U. Review of Systems: A complete 10-point review of systems was performed, includin g cardiovascular and pulmonary, and was negative except as noted above. Objective Vital Signs: Blood Pressure: BP: 137/60 Pulse: Pulse: 99 Temperature: Temp: 36.6 C (97.9 F) Respirations: Resp: 19 O2 Saturation: SpO2: 95 % Admission Weight: Weight: 105.7 kg (233 lb) BMI: Body mass index is 44.65 kg/(m^ 2). Intake/Output Summary (Last 24 hours) at 06/30/16 0713 Last data filed at 06/30/16 0600 Gross per 24 hour Intake 600 ml Output 0 ml Net 600 ml Physical Exam: Gen: A/Ox3, frequent coughing during exam CV: RRR, no murmurs Resp: Diminished throughout Abd: S/ND/NT, +BS Ext: No edema Neuro: No focal neurologic deficits Assessment/Plan Ms. Isiah Benítez is a 65 y.o. female with hx of HTN, IDDM, COPD presents with s hortness of breath, failed OP therapy. Likely COPD exacerbation. Started on Leva zach, steroids, breathing treatments and supplemental oxygen. * COPD exacerbation Pt mildly hypoxemic on admit; improvement overnight with treatment CXR with Left basal opacity with partial obscuration of the left hemidiaphragm c ould reflect atelectasis. Infection not excluded. CTA negative for PE 2/4 SIRS criteria --HR and RR; afebrile; wbc 6--unlikely sepsis, likely due to c opd exacerbation --continue levaquin, steroids and breathing treatments --RATE protocol --titrate oxygen to sats > 92% --check procal Acute respiratory failure with hypoxia sats 85% on room air on admit Improved with oxygen, steroids, abx and breathing treatments --continue abx --steroids, switched to oral this am --rate protocol --oxygen, titrate to sats > 92% IDDM (insulin dependent diabetes mellitus) suboptimal control, likely due to steroids --increase lantus to 12 nightly --continue correction factor --CC diet Tachycardia Likely multifactorial, receiving breathing treatments, metoprolol held due to co pd exacerbation; --EKG now--appears to be ST --will resume metoprolol HTN (hypertension) Normotensive --metoprolol held with hx of COPD and ongoing breathing issues last night --continue amlodipine --PRNS SASHA on CPAP Recent sleep study (prior to gastric bypass surgery)--started on home c-pap --may use home c-pap equipment nightly Supportive Documentation See my orders for additional details regarding this patients treatment plan. Status: Inpatient Room: Diet: Diet-Low Fat/Chol, 2gm Na, Consistent Carbohydrate Code Status: Full Code VTE Prevention: As noted below. VTE Orders heparin (porcine) 5,000 unit/mL injection 5,000 Units Every [address] sequential compression device Once [place] (if applicable): Laboratory Data: Available labs in the last 36 hours were reviewed and pertinent findings in the assessment/plan. Recent Results (from the past 36 hour(s)) CBC and Diff (manual diff if necessary) Collection Time: 06/29/16 3:00 PM Result Value Ref Range WBC 6.88 4.00 - 11.00 TH/uL RBC 3.83 (L) 4.00 - 5.00 MIL/uL Hemoglobin 12.4 12.0 - 15.0 g/dL Hematocrit 38 36 - 45 % MCV 99 80 - 99 fL MCH 32 27 - 34 pg MCHC 33 32 - 36 % RDW 13.2 9.0 - 14.5 % Platelet Count 148 140 - 400 TH/uL MPV 10.2 9.4 - 12.3 fL %Segmented Neutrophils 51 45 - 78 % %Lymphocytes 36 15 - 47 % %Monocytes 9 0 - 12 % %Eosinophils 4 0 - 7 % %Basophils 0 0 - 2 % # Granulocytes 3.51 1.7 - 6.8 TH/uL # Lymphocytes 2.45 1.0 - 3.3 TH/uL # Monocytes 0.62 0.2 - 0.9 TH/uL # Eosinophils 0.28 0.0 - 0.4 TH/uL # Basophils 0.02 0.0 - 0.1 TH/uL Troponin Collection Time: 06/29/16 3:00 PM Result Value Ref Range Troponin <0.01 0.00 - 0.03 ng/mL NTproBNP Collection Time: 06/29/16 3:00 PM Result Value Ref Range NTproBNP 111 pg/mL Lactate Venous WB - Use GREEN tube Collection Time: 06/29/16 3:00 PM Result Value Ref Range Lactate Venous 1.9 0.0 - 2.0 mmol/L Magnesium Collection Time: 06/29/16 3:00 PM Result Value Ref Range Magnesium 2.0 1.4 - 2.7 mg/dL Influenza AB Antigen Collection Time: 06/29/16 3:48 PM Result Value Ref Range Influenza A Antigen Negative Negative Influenza B Antigen Negative Negative Culture, Sputum with Gram Stain Collection Time: 06/29/16 3:54 PM Result Value Ref Range Culture Result Gram stain indicates specimen is not wholesale representative of lower respiratory tract secretions. Culture not performed. Please consult Microbiology if clinical considerations warrant complete processing of this specimen. Specimen will be held 5 days. Culture Result If further workup of this specimen is warranted please phone [phone]) Comprehensive Metabolic Panel Collection Time: 06/29/16 4:33 PM Result Value Ref Range Sodium 143 133 - 147 MEQ/L Potassium 3.7 3.5 - 5.3 MEQ/L Chloride 104 96 - 112 MEQ/L Carbon Dioxide 30 20 - 32 MEQ/L Anion Gap 9 5 - 17 Calcium 8.5 8.4 - 10.5 mg/dL Glucose 123 (H) 70 - 100 mg/dL Protein Total Serum 6.8 6.0 - 8.2 g/dL Albumin 3.7 3.5 - 5.0 g/dL Alkaline Phosphatase 77 42 - 140 IU/L Alanine Aminotransferase 46 13 - 69 IU/L Aspartate Aminotransferase 36 15 - 46 IU/L Bilirubin Total 0.4 0.2 - 1.3 mg/dL Blood Urea Nitrogen 17 7 - 26 mg/dL Creatinine 0.7 0.4 - 1.1 mg/dL GFR Female AA 101 60 - 200 GFR Female Non-AA 85 60 - 200 GLUCOSE POC Collection Time: 06/29/16 8:38 PM Result Value Ref Range Glucose POC 233 (H) 70 - 100 mg/dL GLUCOSE POC Collection Time: 06/30/16 12:56 AM Result Value Ref Range Glucose POC 201 (H) 70 - 100 mg/dL Basic Metabolic Panel Collection Time: 06/30/16 4:17 AM Result Value Ref Range Sodium 141 133 - 147 MEQ/L Potassium 4.5 3.5 - 5.3 MEQ/L Chloride 102 96 - 112 MEQ/L Carbon Dioxide 26 20 - 32 MEQ/L Anion Gap 13 5 - 17 Calcium 8.7 8.4 - 10.5 mg/dL Glucose 311 (H) 70 - 100 mg/dL Blood Urea Nitrogen 14 7 - 26 mg/dL Creatinine 0.7 0.4 - 1.1 mg/dL GFR Female AA 101 60 - 200 GFR Female Non-AA 85 60 - 200 Complete Blood Count Collection Time: 06/30/16 4:17 AM Result Value Ref Range WBC 6.26 4.00 - 11.00 TH/uL RBC 3.84 (L) 4.00 - 5.00 MIL/uL Hemoglobin 12.3 12.0 - 15.0 g/dL Hematocrit 38 36 - 45 % MCV 100 (H) 80 - 99 fL MCH 32 27 - 34 pg MCHC 32 32 - 36 % RDW 13.4 9.0 - 14.5 % Platelet Count 132 (L) 140 - 400 TH/uL MPV 9.6 9.4 - 12.3 fL Radiology Imaging: Available imaging in the last 48 hours were reviewed and pert inent findings in the assessment/plan. Xr Chest Single View Frontal Result Date: 06/29/2016 Left basal opacity with partial obscuration of the left hemidiaphragm could reflect atelectasis. Infection not excluded. Consider PA and lateral chest radiographs for further characterization when patient condition permits. READING SITE: [facility] Echocardiogram Studies: Available studies in the last 7 days were reviewed and p ertinent findings in the assessment/plan. No results found. Medications: Active medications were reviewed and changes were made as indicated in the assessment/plan. Please see the orders for details. Current Facility-Administered Medications: amitriptyline 25 mg Oral Nightly amLODIPine 5 mg Oral Daily citalopram 20 mg Oral Daily fluticasone-vilanterol 1 puff Inhalation Daily gabapentin 300 mg Oral TID heparin (porcine) 5,000 Units Subcutaneous Q8H insulin glargine 10 Units Subcutaneous Nightly insulin lispro 2-12 Units Subcutaneous 4 times daily before meals and nightly ipratropium-albuterol 3 mL Inhalation 4x Daily levofloxacin 500 mg Intravenous Daily methylPREDNISolone sodium succinate 40 mg Intravenous Q8H TUYET pantoprazole 40 mg Oral QAM AC pravastatin 40 mg Oral Nightly predniSONE 40 mg Oral Daily Current Facility-Administered Medications: acetaminophen 325-650 mg Oral Q6H PRN Or acetaminophen 325-650 mg Rectal Q6H PRN ALPRAZolam 0.25 mg Oral Q6H PRN dextrose 25-50 mL Intravenous PRN fentaNYL 25-50 mcg Intravenous Q4H PRN glucagon 1 mg Intramuscular PRN Or glucagon 1 mg Subcutaneous PRN guaiFENesin 200 mg Oral Q4H PRN hydralazine 10 mg Intravenous Q4H PRN HYDROcodone-acetaminophen 1 tablet Oral Q6H PRN ondansetron 4 mg Intravenous Q6H PRN polyethylene glycol 17 g Oral Daily PRN potassium chloride 20-60 mEq Oral PRN potassium chloride 20-60 mEq Oral PRN potassium chloride 20 mEq Intravenous PRN Xiomara Mayen RN PUBLIC [employer]ATIONS SENIOR ASSOCIATE [facility] Please page through physician paging. . WARE ENGINEER SALES Associated attestation - Katja Guzman DO - 06/30/2016 2:16 PM SOFTWARE ENGINEER SALES [facility] VICE PRINCIPAL Hospitalist - History & Physical I personally interviewed and examined Ms. Isiah Benítez. I discussed the finding s with nurse practitioner and reviewed the nurse practitioners note. I agree the nurse practitioners findings with exceptions noted below. Ms. Isiah Benítez is a 65 y.o. female with a history of COPD, HTN, DM who was ad mitted on 06/29/2016 with COPD exacerbation. Patient reports today that she cont inues to feel SOA and has persistent cough. No fever or chills. Reports feelin g her heart race after neb treatments. Review of Systems: A complete 10-point review of systems was performed, includin g cardiovascular and pulmonary, and was negative except as noted above. Vital Signs: height is 1.575 m (5' 2") and weight is 110.7 kg (244 lb 1.6 oz). Her oral temperature is 36.6 C (97.9 F). Her blood pressure is 137/66 and he r pulse is 125. Her respiration is 19 and oxygen saturation is 94%. ECG personally reviewed with the following findings noted: sinus tachycardia I have personally reviewed the patient's chart including vital signs, labs, imag ing, artist consultant notes (if applicable), outside medical records (if applicable), and prior notes. In addition, I have reviewed the patients past medical history, surgical history, family history, and social history as noted in the attached giovanni downing practitioners note. These were not duplicated here. Assessment: Principal Problem: COPD exacerbation Active Problems: Acute respiratory failure with hypoxia IDDM (insulin dependent diabetes mellitus) Tachycardia HTN (hypertension) SASHA on CPAP Plan: 1. Continue steroids, nebs and antibiotics 2. RATE consult 3. Increase lantus to home dose and add SSI In addition, see my orders for additional details regarding this patients treatm ent plan. Code Status: Full Code Diet: Diet-Low Fat/Chol, 2gm Na, Consistent Carbohydrate VTE Prevention: Heparin subcutaneous Katja Guzman DO [facility] Please page through physician paging. . * Rodney Qi Keri, HAND II THERMAL CUTTER - 06/30/2016 12:13 AM SOFTWARE ENGINEER SALES Respiratory Care Services Initial Consultation Note Name: Isiah Benítez CPI: [id number] Isiah Benítez was evaluated per RATE Consultation on June 30, 2016 at 0013 f or respiratory therapy intervention needs. History Assessment The patient is hospitalized for Patient Active Problem List Diagnosis SNOMED CT(R) Type 2 diabetes mellitus without complication TYPE 2 DIABETES MELLITUS COPD (chronic obstructive pulmonary disease) CHRONIC OBSTRUCTIVE LUNG DISEAS E Hypertension HYPERTENSIVE DISORDER Hyperlipidemia HYPERLIPIDEMIA Chronic pain CHRONIC PAIN Elevated MCV MCV - RAISED MATA (generalized anxiety disorder) GENERALIZED ANXIETY DISORDER Hair loss LOSS OF HAIR Acute chest pain ACUTE CHEST PAIN SASHA (obstructive sleep apnea) OBSTRUCTIVE SLEEP APNEA SYNDROME Iron deficiency IRON DEFICIENCY Goldberg-Ekbom syndrome RESTLESS LEGS Parasomnia PARASOMNIA COPD exacerbation ACUTE EXACERBATION OF CHRONIC OBSTRUCTIVE AIRWAYS DISEASE IDDM (insulin dependent diabetes mellitus) DIABETES MELLITUS HTN (hypertension) HYPERTENSIVE DISORDER and has co-existing disease process of Cardiac History, COPD and Pneumonia Social History Substance Use Topics Smoking status: Former Smoker Quit date: 09/14/2009 Smokeless tobacco: Never Used Alcohol use No Current Facility-Administered Medications Medication Dose Route Frequency Provider Last Rate Last Dose acetaminophen (TYLENOL) tablet 325-650 mg 325-650 mg Oral Q6H PRN Mathew Stout MD Or acetaminophen (TYLENOL) suppository 325-650 mg 325-650 mg Rectal Q6H PRN dar Stout MD ALPRAZolam (XANAX) tablet 0.25 mg 0.25 mg Oral Q6H PRN Ever Longoria amitriptyline (ELAVIL) tablet 25 mg 25 mg Oral Nightly Ever Longoria 25 mg at 06/29/162145 amLODIPine (NORVASC) tablet 5 mg 5 mg Oral Daily Walker Stout MD 5 mg at 06/29/162145 citalopram (CeleXA) tablet 20 mg 20 mg Oral Daily Walker Stout MD 2 0 mg at 06/29/162145 dextrose 50 % syringe 25-50 mL 25-50 mL Intravenous PRN Walker Stout MD fentaNYL (SUBLIMAZE) 50 mcg/mL injection 25-50 mcg 25-50 mcg Intravenous Q4 H PRN Tavon Orellana MD 50 mcg at 06/29/162103 gabapentin (NEURONTIN) capsule 300 mg 300 mg Oral TID Walker Stout MD 300 mg at 06/29/162144 glucagon (GLUCAGEN) injection 1 mg 1 mg Intramuscular PRN Walker Stout MD Or glucagon (GLUCAGEN) injection 1 mg 1 mg Subcutaneous PRN Walker Stout MD guaiFENesin (ROBITUSSIN) 100 mg/5 mL syrup 200 mg 200 mg Oral Q4H PRN Luis Stout MD heparin (porcine) 5,000 unit/mL injection 5,000 Units 5,000 Units Subcutane ous Q8H Walker Stout MD 5,000 Units at 06/29/162144 hydrALAZINE (APRESOLINE) injection 10 mg 10 mg Intravenous Q4H PRN Walt Stout MD HYDROcodone-acetaminophen (NORCO) 5-325 mg per tablet 1 tablet 1 tablet Ora l Q6H PRN Walker Stout MD insulin glargine (LANTUS) injection 10 Units 10 Units Subcutaneous Nightly Walker Stout MD 10 Units at 06/29/162144 insulin lispro (HumaLOG) injection 2-12 Units 2-12 Units Subcutaneous 4 joann es daily before meals and nightly Walker Stout MD 4 Units at 06/29/16 45 ipratropium-albuterol (DUO-NEB) 0.5-3 mg/3 mL nebulizer solution 3 mL 3 mL Inhalation 4x Daily Walker Stout MD 3 mL at 06/29/162127 levofloxacin (LEVAQUIN) IVPB 500 mg (premix) 500 mg Intravenous Daily Luis Stout MD methylPREDNISolone sod suc(PF) (Solu-MEDROL) 40 mg/mL injection 40 mg 40 mg Intravenous Q8H TUYET Tiina MD Esteban 40 mg at 06/29/162145 ondansetron (ZOFRAN) 4 mg/2 mL injection 4 mg 4 mg Intravenous Q6H PRN Saúl Orellana MD pantoprazole (PROTONIX) EC tablet 40 mg 40 mg Oral QAM AC Walker Stout MD polyethylene glycol (GLYCOLAX) packet 17 g 17 g Oral Daily PRN Walker Stout MD potassium chloride (KAYCIEL) 20 mEq/15 mL solution 20-60 mEq 20-60 mEq Oral PRN Walker Stout MD potassium chloride (KLOR-CON) CR tablet 20-60 mEq 20-60 mEq Oral PRN Da Stout MD potassium chloride 20 mEq in 100 mL IVPB 20 mEq Intravenous PRN Walker Stout MD pravastatin (PRAVACHOL) tablet 40 mg 40 mg Oral Nightly Walker Stout MD 40 mg at 06/29/162145 predniSONE (DELTASONE) tablet 40 mg 40 mg Oral Daily Walker Stout MD Physical Assessment The patient's has the following signs/symptoms evaluated to determine criteria f or service: SaO2 96% on 2 LPM, HR 93 bpm Patient is spontaneously breathing Breath Sounds Clear diminished Respiratory Pattern dyspnea on exsertion Cough non productive Sputum none Other N/A Protocol The patient meets criteria for Respiratory Care Service based upon the assessmen t above. Treatment Plan The treatment plan identified for the patient is Aerosol Drug Therapy and Oxygen Therapy Discharge Considerations Not Applicable WARE ENGINEER SALES documented in this encounter H&P Notes * Walker Stout MD - 06/29/2016 5:51 PM SOFTWARE ENGINEER SALES [facility] VICE PRINCIPAL Hospitalist - History & Physical Patient Name: Isiah oD Earline Date of : 1950 Date of Admission: 06/29/2016 2:56 PM Bed: SED/SED-06 Primary Care Physician: Ebony Sharp MD; Subjective Chief Complaint: Shortness of breath History of Present illness: Ms. Isiah Benítez is a 65 y.o. female with hx of HTN , IDDM, COPD presents with shortness of breath lasting the last 3-4 days. Associ ated subjective fever, chills, mildly productive cough. She has intermittent lef t sided chest pain worse with deep inspiration. She denies any lightheadedness, palpitations. Pt in the last 2 months has been treated with doxy and prednisone with improvement in symptoms as outpt and in the ED in the last few weeks. Uses home O2 2L occasionally and with CPAP machine at night. Review of Systems: 10 point ROS completed and negative aside from that noted abo ve. Past Medical History Diagnosis Date Arthritis COPD (chronic obstructive pulmonary disease) Diabetes mellitus Hyperlipidemia Hypertension Past Surgical History Procedure Laterality Date section, classic Cholecystectomy Hysterectomy Cataract extraction, bilateral Ankle surgery Left Family History Problem Relation Age of Onset Cancer Mother Stroke Mother Cancer Father Stroke Father Social History Social History Marital status: Single Spouse name: N/A Number of children: N/A Years of education: N/A Occupational History Not on file. Social History Main Topics Smoking status: Former Smoker Quit date: 09/14/2009 Smokeless tobacco: Never Used Alcohol use No Drug use: No Sexual activity: No Other Topics Concern Not on file Social History Narrative Immunization History Administered Date(s) Administered Influenza QIV (IM) 05/09/2016 Pneumococcal Polysaccharide 05/09/2016 Allergies Allergen Reactions Lisinopril Anaphylaxis Metformin Sulfa (Sulfonamide Antibiotics) Prior to Admission medications Medication Sig albuterol (PROAIR HFA) 90 mcg/actuation HFA inhaler Inhale 1 puff every 4 (four) hours as needed for wheezing. amitriptyline (ELAVIL) 25 MG tablet Take 1 tablet (25 mg total) by mouth nightly . amLODIPine (NORVASC) 2.5 MG tablet Take 1 tablet (2.5 mg total) by mouth daily. Take one daily. BIOTIN ORAL Take by mouth. citalopram (CELEXA) 20 MG tablet Take 1 tablet (20 mg total) by mouth daily. famotidine (PEPCID) 20 MG tablet Take one tablet (20 mg total) by mouth 2 (two) times a day. fluticasone-vilanterol (BREO ELLIPTA) 200-25 mcg/actuation INHALER Inhale 1 puff daily. FLUVIRIN [id number] 45 mcg (15 mcg x 3)/0.5 mL Susp ADM 0.5ML IM UTD gabapentin (NEURONTIN) 300 MG capsule Take 1 capsule (300 mg total) by mouth 3 ( three) times a day. HYDROcodone-acetaminophen (NORCO) 5-325 mg per tablet Take one tablet by mouth e very 6 (six) hours as needed for pain. Do not drive while taking this medication . insulin syringe-needle U-100 0.3 mL 31 x [...] 20 MG capsule OXYGEN THERAPY as needed. PNEUMOVAX 23 25 mcg/0.5 mL injection ADM 0.5ML IM UTD simvastatin (ZOCOR) 20 MG tablet Take 1 tablet (20 mg total) by mouth nightly. Objective Visit Vitals BP 150/81 (BP Location: Left arm) Pulse 76 Temp 36.9 C (98.5 F) (Oral) Resp 18 Ht 1.575 m (5' 2") Wt 105.7 kg (233 lb) SpO2 91% BMI 42.62 kg/m2 No intake or output data in the 24 hours ending 06/29/16 1751 Physical Exam: Gen: mild distress with deep breaths due to pain. Appears well otherwise. obese Neuro: Alert, oriented, no notable sensory or motor deficits HEENT: MMM, no oral lesions, PERRL, EOMI Lymph: left anterior LN noted non painful. Cardiac: RRR, no notable murmurs Pulm: diminished bilat but breath sounds clear without notable wheeze or rhonchi . GI: soft, non tender, normal bowel sounds, no organomegaly Extremities: normal, no edema, no lesions noted, pulses 2+ in upper and lower ex tremities Psych: mood bright, affect normal. EKG rate 76 rhythm sinus, no ST T wave changes. Recent Results (from the past 36 hour(s)) CBC and Diff (manual diff if necessary) Collection Time: 06/29/16 3:00 PM Result Value Ref Range WBC 6.88 4.00 - 11.00 TH/uL RBC 3.83 (L) 4.00 - 5.00 MIL/uL Hemoglobin 12.4 12.0 - 15.0 g/dL Hematocrit 38 36 - 45 % MCV 99 80 - 99 fL MCH 32 27 - 34 pg MCHC 33 32 - 36 % RDW 13.2 9.0 - 14.5 % Platelet Count 148 140 - 400 TH/uL MPV 10.2 9.4 - 12.3 fL %Segmented Neutrophils 51 45 - 78 % %Lymphocytes 36 15 - 47 % %Monocytes 9 0 - 12 % %Eosinophils 4 0 - 7 % %Basophils 0 0 - 2 % # Granulocytes 3.51 1.7 - 6.8 TH/uL # Lymphocytes 2.45 1.0 - 3.3 TH/uL # Monocytes 0.62 0.2 - 0.9 TH/uL # Eosinophils 0.28 0.0 - 0.4 TH/uL # Basophils 0.02 0.0 - 0.1 TH/uL Troponin Collection Time: 06/29/16 3:00 PM Result Value Ref Range Troponin <0.01 0.00 - 0.03 ng/mL NTproBNP Collection Time: 06/29/16 3:00 PM Result Value Ref Range NTproBNP 111 pg/mL Lactate Venous WB - Use GREEN tube Collection Time: 06/29/16 3:00 PM Result Value Ref Range Lactate Venous 1.9 0.0 - 2.0 mmol/L Magnesium Collection Time: 06/29/16 3:00 PM Result Value Ref Range Magnesium 2.0 1.4 - 2.7 mg/dL Influenza AB Antigen Collection Time: 06/29/16 3:48 PM Result Value Ref Range Influenza A Antigen Negative Negative Influenza B Antigen Negative Negative Comprehensive Metabolic Panel Collection Time: 06/29/16 4:33 PM Result Value Ref Range Sodium 143 133 - 147 MEQ/L Potassium 3.7 3.5 - 5.3 MEQ/L Chloride 104 96 - 112 MEQ/L Carbon Dioxide 30 20 - 32 MEQ/L Anion Gap 9 5 - 17 Calcium 8.5 8.4 - 10.5 mg/dL Glucose 123 (H) 70 - 100 mg/dL Protein Total Serum 6.8 6.0 - 8.2 g/dL Albumin 3.7 3.5 - 5.0 g/dL Alkaline Phosphatase 77 42 - 140 IU/L Alanine Aminotransferase 46 13 - 69 IU/L Aspartate Aminotransferase 36 15 - 46 IU/L Bilirubin Total 0.4 0.2 - 1.3 mg/dL Blood Urea Nitrogen 17 7 - 26 mg/dL Creatinine 0.7 0.4 - 1.1 mg/dL GFR Female AA 101 60 - 200 GFR Female Non-AA 85 60 - 200 Xr Chest Single View Frontal Result Date: 06/29/2016 Left basal opacity with partial obscuration of the left hemidiaphragm could reflect atelectasis. Infection not excluded. Consider PA and lateral chest radiographs for further characterization when patient condition permits. READING SITE: [facility] Assessment/Plan * COPD exacerbation Pt mildly hypoxemic, CXR personally reviewed and without infiltrate. No notable wheeze noted which may be due to tight bronchus with limited air movement, howev er with left sided pleural pain, will rule out PE with CTA. Cover more broadly w ith levaquin and steroid, check RVP. IDDM (insulin dependent diabetes mellitus) Resume insulin at mildly reduced dose, will titrate as needed as expect need for higher doses with steroids. Correction factor. HTN (hypertension) Will hold metoprolol with hx of COPD and ongoing breathing issues, add low dose amlodipine and prns. In addition, see my orders for additional details regarding this patients treatm ent plan. Diet: 75 gm consistent carb VTE Prevention: Heparin subcutaneous FULL CODE Disp: Admit patient on inpatient to Med/Surg without telemetry for treatment as noted above. Walker Stout MD [facility] Please page through physician paging. . WARE ENGINEER SALES documented in this encounter ED Notes * Roosevelt Smiley, RN - 06/29/2016 7:52 PM SOFTWARE ENGINEER SALES PT WENT OVER TO CT THEN TO THE FLOOR, PT STABLE WITH TRANSPORT WARE ENGINEER SALES * Nanci Cunha RN - 06/29/2016 6:43 PM SOFTWARE ENGINEER SALES SPOKE WITH BRIDGET FROM CT. PATIENT HAS TO WAIT 2 HOURS BEFORE CTA CAN BE DONE DUE TO EATING DINNER. BR[facility]GET REPORTS COMING TO GET PATIENT AT 1930. PATIENT TH EN WILL BE PUT IN FOR TRANSPORT TO GO TO THE FLOOR. RN ON FLOOR IS AWARE OF SITU ATION. WARE ENGINEER SALES * Nanci Cunha RN - 06/29/2016 6:32 PM SOFTWARE ENGINEER SALES PATIENT DELAYED TO GO UPSTAIRS. STILL NEEDS AC IV FOR CTA. REPORT HAS BEEN GIVEN TO FLOOR RN AND AWARE OF DELAY FOR FLOOR. WARE ENGINEER SALES * Nanci Cunha RN - 06/29/2016 5:38 PM SOFTWARE ENGINEER SALES MEAL TRAY GIVEN TO PATIENT. HOSPITALIST AT BEDSIDE. FAMILY ALSO BROUGHT FOOD. ALIVIA REED STABLE AT THIS TIME. DIET HAS BEEN ORDERED. PATIENT OK TO EAT. WARE ENGINEER SALES * Tavon Orellana MD - 06/29/2016 3:34 PM SOFTWARE ENGINEER SALES 06/29/2016 [facility] History Chief Complaint Patient presents with Chest pain c/o SOA x 2 days, states she cannot use her CPAP and breathe. States she thin ks she is having a COPD exacerbation, states chest pain has been three days inte rmittently. States it is squeezing on the left, non-radiating with diaphoresis, dizziness, nausea. Shortness of Breath HPI Comments: Patient is a 65-year-old female with history of COPD who presents for evaluation of increased shortness of breath and chest pain that began 3 days ago. The patient has been recently treated for COPD exacerbation/bronchitis. She comp leted a second course of doxycycline as well as prednisone with no improvement n oted. Over the last 3 days she has noted increased shortness of breath and inter mittent chest pain. She feels that she is having recurrent COPD exacerbation. The patient does wear home oxygen 2 L as needed. She has been requiring a slight ly. Cough is productive of thick sputum. Subjective fevers reported. She notes e pisodes of diffuse squeezing chest pain lasting approximately 15 minutes, left-s ided greater than right. Pain is worse with coughing. Patient did have a negativ e cardiac workup in this ER 3 weeks ago along with low probability VQ scan. Past Medical History: Arthritis COPD (chronic obstructive pulmonary disease) Diabetes mellitus Hyperlipidemia Hypertension Past Surgical History: SECTION, CLASSIC CHOLECYSTECTOMY HYSTERECTOMY CATARACT EXTRACTION, BILATERAL ANKLE SURGERY Left Smoking status: Former Smoker Packs/day: 0.00 Years: 0.00 Quit date: 09/14/2009 Smokeless status: Never Used Alcohol use: No Family history noncontributory Patient is a 65 y.o. female presenting with chest pain and shortness of breath. Chest pain Associated symptoms: shortness of breath Shortness of Breath Associated symptoms: chest pain Past Medical History Diagnosis Date Arthritis COPD (chronic obstructive pulmonary disease) Diabetes mellitus Hyperlipidemia Hypertension Past Surgical History Procedure Laterality Date section, classic Cholecystectomy Hysterectomy Cataract extraction, bilateral Ankle surgery Left Family History Problem Relation Age of Onset Cancer Mother Stroke Mother Cancer Father Stroke Father Social History Substance Use Topics Smoking status: Former Smoker Quit date: 09/14/2009 Smokeless tobacco: Never Used Alcohol use No Review of Systems Respiratory: Positive for shortness of breath. Cardiovascular: Positive for chest pain. All other systems reviewed and are negative. Physical Exam Visit Vitals BP 150/81 (BP Location: Left arm) Pulse 77 Temp 36.9 C (98.5 F) (Oral) Resp 16 Ht 1.575 m (5' 2") Wt 105.7 kg (233 lb) SpO2 90% BMI 42.62 kg/m2 Physical Exam Constitutional: She is oriented to person, place, and time. She appears well-dev eloped and well-nourished. Non-toxic appearance. She appears distressed (modera te). Well-hydrated; VS noted, nontoxic-appearing HENT: Head: Normocephalic and atraumatic. Right Ear: External ear normal. Tympanic membrane is not erythematous. Left Ear: External ear normal. Tympanic membrane is not erythematous. Nose: Nose normal. Mouth/Throat: Mucous membranes are normal. Posterior oropharyngeal erythema (mil d) present. Eyes: Conjunctivae and EOM are normal. Pupils are equal, round, and reactive to light. Neck: Neck supple. Carotid bruit is not present. No thyroid mass present. No meningeal signs. Cardiovascular: Normal rate and regular rhythm. Exam reveals no gallop and no f riction rub. No murmur heard. Pulmonary/Chest: Effort normal. She has no wheezes. She has no rhonchi. She has no rales. Abdominal: Soft. Bowel sounds are normal. She exhibits no mass. There is no tend erness. There is no rebound and no guarding. Musculoskeletal: Normal range of motion. She exhibits no edema or tenderness. Lymphadenopathy: She has no cervical adenopathy. Neurological: She is alert and oriented to person, place, and time. She has norm al strength. No cranial nerve deficit or sensory deficit. GCS eye subscore is 4. GCS verbal subscore is 5. GCS motor subscore is 6. Skin: Skin is warm and dry. No rash noted. No erythema. Psychiatric: She has a normal mood and affect. Judgment normal. Nursing note and vitals reviewed. ED Course Room air saturation 90%; Patient placed on nurse monitoring and oxygen EKG interpreted by me shows a normal sinus rhythm, rate 73, no acute ST segment elevation RT consulted for duoneb tx; given IV solumedrol; patient requesting analgesic fo r chest pain, given IV fent / zofran 4:19 PM RN reports desat to 85% (nasal cannula displaced - repositioned) XR Chest single view frontal Final Result Left basal opacity with partial obscuration of the left hemidiaphragm could reflect atelectasis. Infection not excluded. Consider PA and lateral chest radiographs for further characterization when patient condition permits. READING SITE: [facility] Results for orders placed or performed during the hospital encounter of 06/29/16 Influenza AB Antigen Result Value Ref Range Influenza A Antigen Negative Negative Influenza B Antigen Negative Negative CBC and Diff (manual diff if necessary) Result Value Ref Range WBC 6.88 4.00 - 11.00 TH/uL RBC 3.83 (L) 4.00 - 5.00 MIL/uL Hemoglobin 12.4 12.0 - 15.0 g/dL Hematocrit 38 36 - 45 % MCV 99 80 - 99 fL MCH 32 27 - 34 pg MCHC 33 32 - 36 % RDW 13.2 9.0 - 14.5 % Platelet Count 148 140 - 400 TH/uL MPV 10.2 9.4 - 12.3 fL %Segmented Neutrophils 51 45 - 78 % %Lymphocytes 36 15 - 47 % %Monocytes 9 0 - 12 % %Eosinophils 4 0 - 7 % %Basophils 0 0 - 2 % # Granulocytes 3.51 1.7 - 6.8 TH/uL # Lymphocytes 2.45 1.0 - 3.3 TH/uL # Monocytes 0.62 0.2 - 0.9 TH/uL # Eosinophils 0.28 0.0 - 0.4 TH/uL # Basophils 0.02 0.0 - 0.1 TH/uL Troponin Result Value Ref Range Troponin <0.01 0.00 - 0.03 ng/mL NTproBNP Result Value Ref Range NTproBNP 111 pg/mL Lactate Venous WB - Use GREEN tube Result Value Ref Range Lactate Venous 1.9 0.0 - 2.0 mmol/L Magnesium Result Value Ref Range Magnesium 2.0 1.4 - 2.7 mg/dL Comprehensive Metabolic Panel Result Value Ref Range Sodium 143 133 - 147 MEQ/L Potassium 3.7 3.5 - 5.3 MEQ/L Chloride 104 96 - 112 MEQ/L Carbon Dioxide 30 20 - 32 MEQ/L Anion Gap 9 5 - 17 Calcium 8.5 8.4 - 10.5 mg/dL Glucose 123 (H) 70 - 100 mg/dL Protein Total Serum 6.8 6.0 - 8.2 g/dL Albumin 3.7 3.5 - 5.0 g/dL Alkaline Phosphatase 77 42 - 140 IU/L Alanine Aminotransferase 46 13 - 69 IU/L Aspartate Aminotransferase 36 15 - 46 IU/L Bilirubin Total 0.4 0.2 - 1.3 mg/dL Blood Urea Nitrogen 17 7 - 26 mg/dL Creatinine 0.7 0.4 - 1.1 mg/dL GFR Female AA 101 60 - 200 GFR Female Non-AA 85 60 - 200 Case d/w hospitalist Dr Eugenia Gonzalez - will admit / medsurg / inpatient - will empir ically tx with levaquin; results and plan of care d/w patient and daughter who v erbalized understanding Procedures MDM ED Course ED Clinical Impression COPD exaacerbation LLL pneumonia hypoxia No diagnosis found. Tavon Orellana MD 06/29/16 1539 Tavon Orellana MD 06/29/16 1619 Tavon Orellana MD 06/29/16 1638 Tavon Orellana MD 06/29/16 1639 Tavon Orellana MD 06/29/16 1702 Tavon Orellana MD 06/29/16 1714 Tavon Orellana MD 06/29/16 1716 Tavon Orellana MD 06/29/16 1717 [employer] * Nanci Cunha RN - 06/29/2016 3:00 PM SOFTWARE ENGINEER SALES Patient reports using a CPAP at night. This AM cough got worse and was unable to tolerate the CPAP. That was the deciding factor to come to ER. [employer] * Estefany Castellanos RN - 06/29/2016 2:48 PM SOFTWARE ENGINEER SALES Pt states she has had two rounds of PO steroids and antibiotics in the last 6 we eks "and it keeps coming back." Pt placed on 2L O2 per NC in triage. W[employer] ENG[employer] * Estefany Castellanos RN - 06/29/2016 2:42 PM SOFTWARE ENGINEER SALES c/o SOA x 2 days, states she cannot use her CPAP and breathe. States she thinks she is having a COPD exacerbation, states chest pain has been three days interm ittently. States it is squeezing on the left, non-radiating with diaphoresis, d izziness, nausea. [employer] documented in this encounter Miscellaneous Notes * Therapy Note - Maryam Carrillo, PT - 07/02/2016 11:44 AM SOFTWARE ENGINEER SALES 07/02/16 1144 Visit Info PT Deferred On 07/02/16 Deferred comments Checked with nurse and she reports pt. may discharge to home [facility]. RN reports pt. has been up in hallway walking ad matt. Checked with pt. and she is feeling much better and states she's been getting up by herself. DC PT [employer] ENG[employer] * Plan of Care - Analy Karin K, RN - 07/02/2016 9:41 AM SOFTWARE ENGINEER SALES Problem: Knowledge Deficit Goal: Patient/family/caregiver demonstrates understanding of disease process, tr eatment plan, medications, and discharge instructions Outcome: Progressing Goal: Patient/Family/Caregiver sets realistic goals Outcome: Progressing Problem: Pain Goal: Patients pain/discomfort is manageable Outcome: Progressing Problem: Skin Integrity Goal: Skin integrity is maintained or improved Outcome: Progressing Problem: Safety Goal: Patient will be injury free during hospitalization Outcome: Progressing Pt up ad matt, calls out appropriately Problem: Nutrition Goal: Patients nutritional intake is adequate Outcome: Progressing Problem: Risk for Falls Goal: Patient will not fall during their Inpatient stay Outcome: Progressing [employer] * Plan of Nurys Pierce RN - 07/02/2016 12:52 AM SOFTWARE ENGINEER SALES Problem: Knowledge Deficit Goal: Patient/family/caregiver demonstrates understanding of disease process, tr eatment plan, medications, and discharge instructions Outcome: Progressing Will continue to monitor and educate as needed Goal: Patient/Family/Caregiver sets realistic goals Outcome: Progressing Pt goals are realistic Problem: Pain Goal: Patients pain/discomfort is manageable Outcome: Progressing Will continue to monitor and give prn meds. Currently on norco and fentanyl prn Problem: Skin Integrity Goal: Skin integrity is maintained or improved Outcome: Progressing Will continue to monitor Problem: Safety Goal: Patient will be injury free during hospitalization Outcome: Progressing Safety precautions in place Problem: Nutrition Goal: Patients nutritional intake is adequate Outcome: Progressing Will continue to encourage po Problem: Risk for Falls Goal: Patient will not fall during their Inpatient stay Outcome: Progressing Patient safety precautions in place [employer] ENG[employer]ER [employer] * Plan of Karin Prather RN - 07/01/2016 12:17 PM SOFTWARE ENGINEER SALES Problem: Knowledge Deficit Goal: Patient/family/caregiver demonstrates understanding of disease process, tr eatment plan, medications, and discharge instructions Outcome: Progressing Goal: Patient/Family/Caregiver sets realistic goals Outcome: Progressing Problem: Pain Goal: Patients pain/discomfort is manageable Outcome: Progressing Problem: Skin Integrity Goal: Skin integrity is maintained or improved Outcome: Progressing Problem: Safety Goal: Patient will be injury free during hospitalization Outcome: Progressing Problem: Nutrition Goal: Patients nutritional intake is adequate Outcome: Progressing Problem: Risk for Falls Goal: Patient will not fall during their Inpatient stay Outcome: Progressing [employer] * Plan of Dianna Sabillon RN - 06/30/2016 10:06 PM SOFTWARE ENGINEER SALES Problem: Knowledge Deficit Goal: Patient/family/caregiver demonstrates understanding of disease process, tr eatment plan, medications, and discharge instructions Outcome: Progressing Goal: Patient/Family/Caregiver sets realistic goals Outcome: Progressing Problem: Pain Goal: Patients pain/discomfort is manageable Outcome: Progressing Problem: Skin Integrity Goal: Skin integrity is maintained or improved Outcome: Adequate for Discharge Problem: Safety Goal: Patient will be injury free during hospitalization Outcome: Adequate for Discharge Problem: Nutrition Goal: Patients nutritional intake is adequate Outcome: Adequate for Discharge Problem: Risk for Falls Goal: Patient will not fall during their Inpatient stay Outcome: Adequate for Discharge [employer] * Plan of Karin Prather RN - 06/30/2016 6:46 PM SOFTWARE ENGINEER SALES Problem: Knowledge Deficit Goal: Patient/family/caregiver demonstrates understanding of disease process, tr eatment plan, medications, and discharge instructions Outcome: Progressing Goal: Patient/Family/Caregiver sets realistic goals Outcome: Progressing Problem: Pain Goal: Patients pain/discomfort is manageable Outcome: Progressing Problem: Skin Integrity Goal: Skin integrity is maintained or improved Outcome: Progressing Problem: Safety Goal: Patient will be injury free during hospitalization Outcome: Progressing Problem: Nutrition Goal: Patients nutritional intake is adequate Outcome: Progressing Problem: Risk for Falls Goal: Patient will not fall during their Inpatient stay Outcome: Progressing [employer] * Assessment & Plan Note - Xiomara Mayen RN APRN - 06/30/2016 12:38 PM SOFTWARE ENGINEER SALES Associated Problem(s): Tachycardia (Resolved 07/02/2016) Likely multifactorial, receiving breathing treatments, metoprolol held due to co pd exacerbation; Improved with addition of metoprolol; HR now in 90's EKG shows ST --continue metoprolol [employer] ENGINE[employer] * Assessment & Plan Note - Xiomara Mayen RN PUBLIC RELATIONS SENIOR ASSOCIATE - 06/30/2016 10:48 AM SOFTWARE ENGINEER SALES Associated Problem(s): SASHA on CPAP Recent sleep study (prior to gastric bypass surgery)--started on home c-pap with supplemental oxygen --may use home c-pap equipment nightly [employer] ENG[employer] * Therapy Note - Maryam Carrillo, PT - 06/30/2016 10:28 AM SOFTWARE ENGINEER SALES 06/30/16 1028 Visit Info Initial PT Visit On 06/30/16 Assessed for Rehab Yes Referral Reason Eval and treat Ordering practitioner Walker Stout Patient/Family Reports Pt reports she has had a couple of infections recently an d has been treated with antibiotics and prednisone. In the last few days, she wa s having increasing SOA and came to the ED. Pt reports she occasionally uses O2 at home and has a C-Pap machine. PT Received On 06/30/16 PT Visit # 1 Time Calculation Start Time 1007 Stop Time 1028 Total Treatment time (min) 21 min Actual time (if diff than calculation) 35 min including non billable time for ch art review, consult with RN and documentation Precautions Weight Bearing Status Weight Bearing As Tolerated LLE;Weight Bearing As Tolerate d RLE Back Precautions No Fall Risk Yes Isolation Yes- Droplet Supplemental Oxygen Yes- 2L/min Home Living Type of Home House Home Layout Two level (Pt has to go upstairs to kitchen) Stairs to basement >12 steps;1 handrail Lives With Daughter Home Assistive Device Rolling walker;Straight cane Pain Assessment Pain Type Acute pain (Pt reports the pain in her upper chest is a new pain that started this morning. ) Pain Location Chest Pain Orientation Upper;Medial Patient exhibits Grimacing Pain Frequency Constant Vital Signs SpO2 94 % BP (!) 167/92 (Nursing notified) Pulse 141 Heart Rate Source Pulse/O2 monitor Patient Position Sitting Cognition Overall Cognitive Status WFL Arousal/Alertness Appropriate responses to stimuli Memory Appears intact Orientation Level Oriented to person;Oriented to place;Oriented to situation;Marlo ented to time Following Commands Follows all commands and directions without difficulty Safety Judgment Good awareness of safety precautions Insight Fully aware of deficits Bed Mobility Rolling Modified independent;Bed rails Supine to Sit Modified independent;Bed Rail Sit to Supine Modified independent;Bed Rail Transfers Assistive Device None Sit to Stand Transfers Stand by assistance (Pt uses IV pump to amb in room with assist) Stand to Sit Transfers Stand by assistance Toilet transfer Stand by assistance Gait Gait Distance (Feet) 30 Assistive Device None;Other (Comment) (IV pump) Gait Level Surface Assistance Stand by Pattern WFL Activity Tolerance Activity Tolerance poor;short of breath Activity Tolerance Comments Pt had increase in BP and HR after going to the rest room. Patient Education Patient Education Role of PT, PT POC *ASSESSMENT Learning Barriers None Response to Treatment Poor Problem List Activity tolerance;Bed mobility;Gait;Transfers;Safety Timeframe Timeframe STG 1 visit Bed Mobility Goals Bed Transfer STG Goal Status New goal Bed Mobility STG Independent Transfer Goals Transfer STG Goal Status New goal Transfer STG Independent Gait Distance/Assist Goals Gait Distance STG (ft) 50 ft Gait Distance STG Goal Status New goal Gait Assist STG Independent Stair/Curb Goals Stair/Curb STG Goal Status New goal Stair/Curb STG 4-6 steps;1 handrail;Standby assist *PLAN Pt/Family Goal to go home Pt/Family involved in Plan of Care No family present (Pt lives with daughter and son-in-law) Treatment/Interventions Functional transfer training;Progressive Mobility;Safety training;Compensatory technique education PT Frequency Follow-up visit only Recommendation Plan Continued PT Plan comments Pt had increase in HR and BP after amb to BR. Pt did not tolerate activity well this morning. Will check back on pt. to ensure pt. able to tolerat e increased activity without sig change in VS. Pt can benefit from cont PT to mo nitor progress and assess ability to return home. PT G-Codes Functional Limitation Mobility: Walking & Moving Around Mobility: Walking & Moving Around Current Status (G8978) CJ Mobility: Walking & Moving Around Goal Status (G8979) CH G-Code determined by: KU Functional Scale [employer] ENGINEER [employer] * Assessment & Plan Note - Xiomara Mayen RN PUBLIC RELATIONS SENIOR ASSOCIATE - 06/30/2016 9:41 AM SOFTWARE ENGINEER SALES Associated Problem(s): Acute on chronic respiratory failure with hypoxia (HCC) ( Resolved 07/02/2016) sats 85% on room air on admit Overnight on 06/30 , sats continued to be 88% on room air Reports being on home oxygen PRN at 2L , usually after exertion or nightly with c-pap --continue abx --steroids, switched to oral this am --rate protocol --oxygen, titrate to sats > 92% WARE ENGINEER SALES * Plan of Care - Xiomara Cullen RN - 06/29/2016 11:44 PM SOFTWARE ENGINEER SALES Problem: Risk for Falls Goal: Patient will not fall during their Inpatient stay Outcome: Progressing Discussed fall risk and reduction of falls WARE ENGINEER [employer]ES * Plan of Care - Xiomara Cullen RN - 06/29/2016 11:41 PM SOFTWARE ENGINEER SALES Problem: Knowledge Deficit Goal: Patient/family/caregiver demonstrates understanding of disease process, tr eatment plan, medications, and discharge instructions Outcome: Progressing Discussed plan of care and treatment plan. Updated medications and educated on n ew medications. Goal: Patient/Family/Caregiver sets realistic goals Outcome: Progressing Discussed goals Problem: Pain Goal: Patients pain/discomfort is manageable Outcome: Progressing Pain is managed with fentanyl Problem: Skin Integrity Goal: Skin integrity is maintained or improved Outcome: Progressing Skin intact Problem: Safety Goal: Patient will be injury free during hospitalization Outcome: Progressing Discussed safety measures Problem: Nutrition Goal: Patients nutritional intake is adequate Outcome: Progressing Tolerating regular diet [employer] ENG[employer]ER [employer] * Assessment & Plan Note - Xiomara Mayen RN PUBLIC RELATIONS SENIOR ASSOCIATE - 06/29/2016 6:43 PM SOFTWARE ENGINEER SALES Associated Problem(s): Essential hypertension Normotensive --continue metoprolol --continue amlodipine --PRNS [employer] ENGINEER [employer]ES * Assessment & Plan Note - Xiomara Mayen RN PUBLIC RELATIONS SENIOR ASSOCIATE - 06/29/2016 6:42 PM SOFTWARE ENGINEER SALES Associated Problem(s): Type 2 diabetes mellitus with hyperglycemia, with long-te rm current use of insulin (HCC) suboptimal control, likely due to steroids Lantus increased back to home dose; blood sugars now 200's instead of 300's --increase lantus to 17 --continue correction factor --CC diet WARE ENGINEER SALES * Assessment & Plan Note - Xiomara Mayen RN PUBLIC RELATIONS SENIOR ASSOCIATE - 06/29/2016 6:38 PM SOFTWARE ENGINEER SALES Associated Problem(s): COPD exacerbation (HCC) (Resolved 07/02/2016) Pt mildly hypoxemic on admit; remained 88% on room air overnight, still requirin g supplemental oxygen CXR with Left basal opacity with partial obscuration of the left hemidiaphragm c ould reflect atelectasis. Infection not excluded. CTA negative for PE 2/4 SIRS criteria --HR and RR; afebrile; wbc 6--unlikely sepsis, likely due to c opd exacerbation procal < 0.05 --continue levaquin, steroids and breathing treatments --RATE protocol --titrate oxygen to sats > 92% --check procal [employer] ENGINEER [employer] documented in this encounter Plan of Treatment Care Team Description Date [place] [id number] [address] [phone] 02/29/2020 Office Visit Urology documented as of this encounter Procedures Comments Procedure Name Priority Date/Time Associated Diag nosis GLUCOSE POC Routine 07/02/2016 11:07 AM SOFTWARE ENGINEER SALES GLUCOSE POC Routine 07/02/2016 7:18 AM SOFTWARE ENGINEER SALES GLUCOSE POC Routine 07/02/2016 2:29 AM SOFTWARE ENGINEER SALES GLUCOSE POC Routine 07/01/2016 11:52 PM SOFTWARE ENGINEER SALES GLUCOSE POC Routine 07/01/2016 8:45 PM SOFTWARE ENGINEER SALES GLUCOSE POC Routine 07/01/2016 4:53 PM SOFTWARE ENGINEER SALES GLUCOSE POC Routine 07/01/2016 11:53 AM SOFTWARE ENGINEER SALES GLUCOSE POC Routine 07/01/2016 7:39 AM SOFTWARE ENGINEER SALES GLUCOSE POC Routine 06/30/2016 8:23 PM SOFTWARE ENGINEER SALES GLUCOSE POC Routine 06/30/2016 4:27 PM SOFTWARE ENGINEER SALES ECG Routine 06/30/2016 12:15 PM SOFTWARE ENGINEER SALES GLUCOSE POC Routine 06/30/2016 11:37 AM SOFTWARE ENGINEER SALES GLUCOSE POC Routine 06/30/2016 7:47 AM SOFTWARE ENGINEER SALES PROCALCITONIN Add-On 06/30/2016 4:17 AM SOFTWARE ENGINEER SALES COMPLETE BLOOD COUNT Routine 06/30/2016 4:17 AM SOFTWARE ENGINEER SALES BASIC METABOLIC PANEL Routine 06/30/2016 4:17 AM SOFTWARE ENGINEER SALES GLUCOSE POC Routine 06/30/2016 12:56 AM SOFTWARE ENGINEER SALES RESPIRATORY PANEL BY PCR Routine 06/29/2016 9:55 PM SOFTWARE ENGINEER SALES GLUCOSE POC Routine 06/29/2016 8:[address] ANGIO CHEST Routine 06/29/2016 7:52 PM SOFTWARE ENGINEER SALES CULTURE, BLOOD STAT 06/29/2016 6:30 PM SOFTWARE ENGINEER SALES COMPREHENSIVE METABOLIC STAT 06/29/2016 PANEL 4:33 PM SOFTWARE ENGINEER SALES CULTURE, BLOOD STAT 06/29/2016 4:01 PM SOFTWARE ENGINEER SALES CULTURE, SPUTUM WITH GRAM STAT 06/29/2016 STAIN 3:54 PM SOFTWARE ENGINEER SALES XR CHEST SINGLE VIEW STAT 06/29/2016 FRONTAL 3:52 PM SOFTWARE ENGINEER SALES INFLUENZA AB ANTIGEN STAT 06/29/2016 3:48 PM SOFTWARE ENGINEER SALES PULSE OXIMETRY, STAT 06/29/2016 CONTINUOUS 3:31 PM SOFTWARE ENGINEER SALES TROPONIN STAT 06/29/2016 3:00 PM SOFTWARE ENGINEER SALES NTPROBNP STAT 06/29/2016 3:00 PM SOFTWARE ENGINEER SALES MAGNESIUM STAT 06/29/2016 3:00 PM SOFTWARE ENGINEER SALES LACTATE VENOUS WB STAT 06/29/2016 3:00 PM SOFTWARE ENGINEER SALES CBC AND DIFF (MANUAL DIFF STAT 06/29/2016 IF NECESSARY) 3:00 PM SOFTWARE ENGINEER SALES ECG STAT 06/29/2016 2:32 PM SOFTWARE ENGINEER SALES documented in this encounter Results * GLUCOSE POC (07/02/2016 11:07 AM SOFTWARE ENGINEER SALES) Only the most recent of 14 results within the time period is included. Glucose POC 168 (H) 70 - 100 mg/dL [facility] Specimen Performing Organization Address City/State/Zipcode Ph one Number [facility] [address] [place] [facility] [place] [address] [facility] [address] [place] [address], [facility] * Electrocardiogram (ECG) (06/30/2016 12:15 PM SOFTWARE ENGINEER SALES) Only the most recent of 2 results within the time period is included. 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 Gender: Female Commercial Helicopter Pilot: [id number] : 1950 Requested By: Mouth Party Order Number: [id number] Reading MD: Zaida Giron Measurements Intervals Julian Rate: 132 P: 49 VA: 81 QRS: 43 QRSD: 104 T: -18 QT: 324 QTc: 480 Interpretive Statements SINUS TACHYCARDIA BORDERLINE INFERIOR Q WAVES BORDERLINE T ABNORMALITIES, INFERIOR LEADS Electronically Signed On 07-01-2016 13:03:35 SOFTWARE ENGINEER SALES by Zaida Giron Performing Organization Address [facility] one Number [email or web address] * Procalcitonin (06/30/2016 4:17 AM SOFTWARE ENGINEER SALES) Procalcitonin <0.05 0.00 - 0.10 ng/mL [facility] Comment: REGIONAL PCT Value LABORATORIES Interpretation 0.10 - 0.25 Low risk for bacterial infection >0.25 Increased risk lower respiratory infection >0.50 Increased risk sepsis >2.00 High risk sepsis If Procalcitonin is >0.25, repeat in 48 hours to guide antibiotic cessation in lower respiratory tract infection. If Procalcitonin is >0.5, repeat in 24 hours to guide antibiotic cessation in sepsis. Procalcitonin is most useful when levels are performed serially with consideration of clinical data. Decisions regarding antibiotic use should not be based exclusively on procalcitonin levels. Specimen Blood Performing Organization Address City/[facility] one Number [address] [address] LABORATORIES * Complete Blood Count (06/30/2016 4:17 AM SOFTWARE ENGINEER SALES) WBC 6.26 4.00 - 11.00 TH/uL [facility] RBC 3.84 (L) 4.00 - 5.00 MIL/uL [facility]Doc[facility] Hemoglobin 12.3 12.0 - 15.0 g/dL [facility] Hematocrit 38 36 - 45 % [facility] MCV 100 (H) 80 - 99 fL [facility] MCH 32 27 - 34 pg [facility] MCHC 32 32 - 36 % [facility] RDW 13.4 9.0 - 14.5 % [facility] Platelet Count 132 (L) 140 - 400 TH/uL [facility] MPV 9.6 9.4 - 12.3 fL [facility] Specimen Blood Performing Organization Address City/State/Zipcode Ph one Number [facility] [address] [facility] [place], [place] [id number] [facility] [address] [facility] [place] [facility] [place] [address], [place] [phone] [facility] * Basic Metabolic Panel (06/30/2016 4:17 AM SOFTWARE ENGINEER SALES) Sodium 141 133 - 147 MEQ/L [facility] Potassium 4.5 3.5 - 5.3 MEQ/L [facility] Chloride 102 96 - 112 MEQ/L [facility] Carbon Dioxide 26 20 - 32 MEQ/L [facility] Anion Gap 13 5 - 17 [facility] Calcium 8.7 8.4 - 10.5 mg/dL [facility] Glucose 311 (H) 70 - 100 mg/dL [facility] Blood Urea 14 7 - 26 mg/dL [facility] Nitrogen [facility] Creatinine 0.7 0.4 - 1.1 mg/dL [facility] eGFR Female AA 101 60 - 200 [facility] Comment: [facility] Chronic Kidney Disease less [facility] than 60 mL/min/1.73 sq.m Kidney failure less than 15 mL/min/1.73 sq.m eGFR Female 85 60 - 200 [facility] Non-AA Comment: [facility] Chronic Kidney Disease less [facility] than 60 mL/min/1.73 sq.m Kidney failure less than 15 mL/min/1.73 sq.m Specimen Blood Performing Organization Address City/State/[facility] Ph one Number [facility] [address] [facility] [place], [place] [id number] [facility] [address] [place] [facility] [place] [address], [place] [phone] [facility] * Respiratory Panel by PCR (06/29/2016 9:55 PM SOFTWARE ENGINEER SALES) Adenovirus Not Detected Not Detected [facility] Coronavirus Not Detected Not Detected [facility] Human Not Detected Not Detected [facility] Metapneumovirus [facility] ([facility]) LABORATORIES Human Not Detected Not Detected [facility] Rhinovirus [facility] Enterovirus LABORATORIES Influenza A Not Detected Not Detected [facility] Influenza B Not Detected Not Detected [facility] Parainfluenza Not Detected Not Detected [facility] Virus [facility] Respiratory Not Detected Not Detected [facility] Syncytial Virus [facility] Bordetella Not Detected Not Detected [facility] pertussis [facility] Chlamydophila Not Detected Not Detected [facility] pneumoniae [facility] Mycoplasma Not Detected Not Detected [facility] pneumoniae [facility] Source NASOPHAR [facility] Specimen Nasopharynx, Performing Organization Address City/[facility] Ph one Number [facility] [address] [place] [address] LABORATORIES * CT Angio Chest (06/29/2016 7:52 PM SOFTWARE ENGINEER SALES) Specimen Impressions Performed At No evidence of pulmonary thromboembolic disease. BRANDON HUTCHINSON READING SITE: [facility] ATTESTATION STATEMENT: The Staff Radiologist has personally re viewed this study and agrees with the findings in this report. The Staff Radiologist has personally re viewed the images and dictated, reviewed, or edited the final report. Narrative Performed At Patient: ISIAH BENÍTEZ Sex#: F # [id number] Jose#: [id number] Location: [facility] Procedure Requested: [id number] CT ANGIO CHEST Reason for Exam: shortness of breath, rule out PE. Exam Ordered: 06/29/2016 17 48 Exam Date/Time: 06/29/2016 195 2 Begin exam date/time: 06/29/[address] ANGIO CHEST INDICATION: shortness of breath, rule o ut PE. COMPARISON STUDY: None. TECHNIQUE: Following the uneventful a dministration of a bolus of 78 cc's Omnipaque 350 intravenous contrast , thin section axial CT images were obtained through the chest using t pulmonary embolus protocol. Bilateral oblique thin section multipla jose reconstructions were obtained through the pulmonary arteries. Coronal MIP images were also obtained. 3D reformatted angiographic images were also obtained of the pulmonary arteries. FINDINGS: Pulmonary Arteries: No evidence of pulm onary thromboembolic disease. No pulmonary hypertension or right ventric ular strain. Heart and Mediastinum: The heart and pe ricardium are normal. Common origin of the brachiocephalic and left common carotid arteries, a normal anatomic variant. The thyroid gland i s of normal size and attenuation. No axillary or supraclavicular lymphade nopathy. No mediastinal, hilar or retrocrural lymphadenopathy. Lungs and Airways: Remote granulomatous disease. No pulmonary mass or consolidation. Bibasilar linear atelect asis and/or scarring. No endoluminal lesion. Pleura: The pleural spaces are normal. Abdomen: The visualized upper abdominal organs are unremarkable. Bones and soft tissues: No acute osseou s abnormality. Normal soft tissues. Procedure Note Interface, Rad Results In - 06/30/2016 8:55 AM SOFTWARE ENGINEER SALES Patient: ISIAH BENÍTEZ Sex#: Paulina # [id number] Jose#: [id number] Location: [facility] Procedure Requested: [id number] CT ANGIO CHEST Reason for Exam: shortness of breath, rule out PE. Exam Ordered: 06/29/2016 1748 Exam Date/Time: 06/29/20161951 Begin exam date/time: 06/29/[address] ANGIO CHEST INDICATION: shortness of breath, rule out PE. COMPARISON STUDY: None. TECHNIQUE: Following the uneventful administration of a bolus of 78 cc's Omnipaque 350 intravenous contrast, thin section axial CT images were obtained through the chest using the pulmonary embolus protocol. Bilateral oblique thin section multiplanar reconstructions were obtained through the pulmonary arteries. Coronal MIP images were also obtained. 3D reformatted angiographic images were also obtained of the pulmonary arteries. FINDINGS: Pulmonary Arteries: No evidence of pulmonary thromboembolic disease. No pulmonary hypertension or right ventricular strain. Heart and Mediastinum: The heart and pericardium are normal. Common origin of the brachiocephalic and left common carotid arteries, a normal anatomic variant. The thyroid gland is of normal size and attenuation. No axillary or supraclavicular lymphadenopathy. No mediastinal, hilar or retrocrural lymphadenopathy. Lungs and Airways: Remote granulomatous disease. No pulmonary mass or consolidation. Bibasilar linear atelectasis and/or scarring. No endoluminal lesion. Pleura: The pleural spaces are normal. Abdomen: The visualized upper abdominal organs are unremarkable. Bones and soft tissues: No acute osseous abnormality. Normal soft tissues. IMPRESSION No evidence of pulmonary thromboembolic disease. READING SITE: [facility] ATTESTATION STATEMENT: The Staff Radiologist has personally reviewed this study and agrees with the findings in this report. The Staff Radiologist has personally reviewed the images and dictated, reviewed, or edited the final report. Performing Organization Address [facility] one Number LEVI * Culture, Blood (Separate sites 15 minutes apart) (06/29/2016 6:30 PM SOFTWARE ENGINEER SALES) Only the most recent of 2 results within the time period is included. [facility] Culture Result No Growth at 5 days [facility] Specimen Blood Performing Organization Address [facility] one Number [address] [address] LABORATORIES * Comprehensive Metabolic Panel (06/29/2016 4:33 PM SOFTWARE ENGINEER SALES) [facility] Sodium 143 133 - 147 MEQ/L [facility] Potassium 3.7 3.5 - 5.3 MEQ/L [facility] Chloride 104 96 - 112 MEQ/L [facility] Carbon Dioxide 30 20 - 32 MEQ/L [facility] Anion Gap 9 5 - 17 [facility] Calcium 8.5 8.4 - 10.5 mg/dL [facility] Glucose 123 (H) 70 - 100 mg/dL [facility] Protein Total 6.8 6.0 - 8.2 g/dL [facility] Serum [facility] AGUSTINS [facility] Albumin 3.7 3.5 - 5.0 g/dL [facility] Alkaline 77 42 - 140 IU/L [facility] Phosphatase [facility] SWANSON [facility] Alanine 46 13 - 69 IU/L [facility] Aminotransferas [facility] SWANSON e [facility] Aspartate 36 15 - 46 IU/L [facility] Aminotransferas AL[facility] SWANSON e [facility] Bilirubin Total 0.4 0.2 - 1.3 mg/dL [facility] AGUSTINS [facility] Blood Urea 17 7 - 26 mg/dL [facility] Nitrogen [facility] SWANSON [facility] Creatinine 0.7 0.4 - 1.1 mg/dL [facility] eGFR Female AA 101 60 - 200 [facility] Comment: [facility] AGUSTINS Chronic Kidney Disease less [facility] than 60 mL/min/1.73 sq.m Kidney failure less than 15 mL/min/1.73 sq.m eGFR Female 85 60 - [address] [facility] Non-AA Comment: [facility] SWANSON Chronic Kidney Disease less [facility] than 60 mL/min/1.73 sq.m Kidney failure less than 15 mL/min/1.73 sq.m Specimen Blood Narrative Performed At This order is a replacement of the rejected order wit h accession number [facility] [id number] [facility] Performing Organization Address City/State/Zipcode Ph one Number [facility] [address] [facility] [address] [facility] [address] [place] [address], [facility] * Culture, Sputum with Gram Stain (06/29/2016 3:54 PM SOFTWARE ENGINEER SALES) Culture Result Gram stain indicates specimen [facility] is not wholesale representative of AL[facility] SWANSON lower respiratory tract [facility] secretions. Culture not performed. Please consult Microbiology if clinical considerations warrant complete processing of this specimen. Specimen will be held 5 days. Culture Result If further workup of this [facility] specimen is warranted please AL[facility] SWANSON phone [facility] [id number] ([phone]) Specimen Sputum Performing Organization Address City/State/Zipcode Ph one Number [facility] [address] [place] [address] [facility] [address] [place] [address], [place] [phone] [facility] * XR Chest single view frontal (06/29/2016 3:52 PM SOFTWARE ENGINEER SALES) Specimen Impressions Performed At Left basal opacity with partial obscuration of the le ft ABIKESSON hemidiaphragm could reflect atelectasis . Infection not excluded. Consider PA and lateral chest radiograp hs for further characterization when patient condition permits. READING SITE: [facility] [place] Narrative Performed At Patient: ISIAH BENÍTEZ Sex#: F # [id number] Jose#: [id number] [facility]: [facility] Procedure Requested: [id number] XR CHEST SINGLE VIEW FRONTAL Reason for Exam: Chest Pain Exam Ordered: 06/29/2016 15 31 Exam Date/Time: 06/29/2016 155 2 Begin exam date/time: 06/29/2016 154 0 XR CHEST SINGLE VIEW FRONTAL INDICATION: Chest Pain COMPARISON STUDY: June 05, 2016. FINDINGS: Lungs: The lung volume is normal. Uncha nged linear left perihilar subsegmental atelectasis or scar. Left basal opacity with partial obscuration of the left hemidiaphragm. Pleura: No pleural effusion or pneumoth orax. Heart and Mediastinum: The cardiomedias tinal silhouette and great vessels are stable. Procedure Note Interface, Rad Results In - 06/29/2016 4:18 PM SOFTWARE ENGINEER SALES Patient: ISIAH BENÍTEZ Sex#: F # [id number] Jose#: [id number] Location: [facility] Procedure Requested: [id number] XR CHEST SINGLE VIEW FRONTAL Reason for Exam: Chest Pain Exam Ordered: 06/29/2016 1531 Exam Date/Time: 06/29/2016 1552 Begin exam date/time: 06/29/2016 1540 XR CHEST SINGLE VIEW FRONTAL INDICATION: Chest Pain COMPARISON STUDY: June 05, 2016. FINDINGS: Lungs: The lung volume is normal. Unchanged linear left perihilar subsegmental atelectasis or scar. Left basal opacity with partial obscuration of the left hemidiaphragm. Pleura: No pleural effusion or pneumothorax. Heart and Mediastinum: The cardiomediastinal silhouette and great vessels are stable. IMPRESSION Left basal opacity with partial obscuration of the left hemidiaphragm could reflect atelectasis. Infection not excluded. Consider PA and lateral chest radiographs for further characterization when patient condition permits. READING SITE: [facility] Performing Organization Address [facility] one Number LEVI * Influenza AB Antigen (06/29/2016 3:48 PM SOFTWARE ENGINEER SALES) Influenza A Negative Negative [facility] Comment: [facility] A negative rapid influenza [facility] antigen result does not exclude influenza infection. If this patient is being hospitalized, influenza PCR should be ordered. Influenza B Negative Negative [facility] Antigen Comment: [facility] A negative rapid influenza [facility] antigen result does not exclude influenza infection. If this patient is being hospitalized, influenza PCR should be ordered. Specimen Nasopharynx, Performing Organization Address [facility] one Number [facility] [address] [place], [place] [id number] [facility] [address] [facility] [place] [address], [facility] * Magnesium (06/29/2016 3:00 PM SOFTWARE ENGINEER SALES) Magnesium 2.0 1.4 - 2.7 mg/dL [facility] Specimen Blood Performing Organization Address [facility] one Number [facility] [address] [facility] [place], [place] [id number] [facility] [address] [facility] [place] [address], [place] [phone] [facility] * Lactate Venous WB - Use GREEN tube (06/29/2016 3:00 PM SOFTWARE ENGINEER SALES) Lactate Venous 1.9 0.0 - 2.0 mmol/L [facility] Specimen Blood Performing Organization Address [facility] one Number [facility] [address] [facility] [place] [address] [facility] [address] [facility] [place] [facility] [place] [address], [place] [phone] [facility] * NTproBNP (06/29/2016 3:00 PM SOFTWARE ENGINEER SALES) NTproBNP 111 pg/mL [facility] Comment: [facility] AGUSTINS NT-proBNP Reference Ranges: [facility] <50 yr <450 pg/mL 50-75 yr <900 pg/mL >75 yr <1800 pg/mL A cutoff value of 1200 pg/mL is recommended in patients 50 to 70 years of age with a GFR between 30 and 60. NT-proBNP is unreliable in patients with GFR <30. Specimen Blood Performing Organization Address [facility] one Number [facility] [address] [facility] [place] [address] [facility] [address] [facility] [place] [address], [place] [phone] [facility] * Troponin (06/29/2016 3:00 PM SOFTWARE ENGINEER SALES) Troponin <0.01 0.00 - 0.03 ng/mL [facility] Comment: [facility] AGUSTINS Troponin Value [facility] Interpretation 0.00 - 0.03 Healthy 0.04 - 0.12 Increased Cardiac Risk >0.12 Myocardial Infarction Troponin may not become elevated until 6 to 8 hours after onset of symptoms. Specimen Blood Performing Organization Address [facility] one Number [facility] [address] [place] [address] [facility] [address] [place] [address], [place] [phone] [facility] * CBC and Diff (manual diff if necessary) (06/29/2016 3:00 PM SOFTWARE ENGINEER SALES) [facility] Signature WBC 6.88 4.00 - 11.00 TH/uL [facility] RBC 3.83 (L) 4.00 - 5.00 MIL/uL [facility] Hemoglobin 12.4 12.0 - 15.0 g/dL [facility] Hematocrit 38 36 - 45 % [facility] MCV 99 80 - 99 fL [facility] MCH 32 27 - 34 pg [facility] MCHC 33 32 - 36 % [facility] RDW 13.2 9.0 - 14.5 % [facility] Platelet Count 148 140 - 400 TH/uL [facility] MPV 10.2 9.4 - 12.3 fL [facility] % Neutrophils 51 45 - 78 % [facility] %Lymphocytes 36 15 - 47 % [facility] %Monocytes 9 0 - 12 % [facility] %Eosinophils 4 0 - 7 % [facility] %Basophils 0 0 - 2 % [facility] # Granulocytes 3.51 1.7 - 6.8 TH/uL [facility] # Lymphocytes 2.45 1.0 - 3.3 TH/uL [facility] # Monocytes 0.62 0.2 - 0.9 TH/uL [facility] # Eosinophils 0.28 0.0 - 0.4 TH/uL [facility] # Basophils 0.02 0.0 - 0.1 TH/uL [facility] Specimen Blood Performing Organization Address City/State/Zipcode Ph one Number [facility] [address] [place] [facility] [place] [place] [address] [facility] [address] [place] [facility] [place] [address], [place] [phone] [facility] documented in this encounter Visit Diagnoses Diagnosis COPD exacerbation (HCC) Obstructive chronic bronchitis with exa cerbation Pneumonia of both lungs due to infectio us organism, unspecified part of lung Hypoxia Hypoxemia Type 2 diabetes mellitus with hyperglyc emia, 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) Essential hypertension Unspecified essential hypertension Acute on chronic respiratory failure wi th hypoxia (HCC) SASHA on CPAP Tachycardia Unspecified tachycardia documented in this encounter Administered Medications Action Date Dose Rate Site Medication Order MAR Action acetaminophen (TYLENOL) suppository 325-650 mg 325-650 mg, Rectal, Every 6 hours PRN, mild pain (pain score 1-3), Starting Mo n 06/29/16 at 2006, Do not exceed 4 GM/DAY of acetaminophen. If 65 or older do no t exceed 3 GM/DAY. If chronic alcoholic d o not exceed 2 GM/DAY., acetaminophen (TYLENOL) tablet 325-650 mg 325-650 mg, Oral, Every 6 hours PRN, mild pain (pain score 1-3), fever, for temperature > 101.5 F, Starting 06/29/16 at 2006, Do not exceed 4 GM/DAY of acetaminophen. If 65 or older do no t exceed 3 GM/DAY. If chronic alcoholic d o not exceed 2 GM/DAY., 07/01/2016 8:04 PM SOFTWARE ENGINEER SALES 25 mg amitriptyline (ELAVIL) tablet 25 mg Given 25 mg, Oral, Nightly, First dose on Wed06/29/16 at 2100 25 mg Given 06/30/2016 7:48 PM SOFTWARE ENGINEER SALES 25 mg Given 06/29/2016 9:46 PM SOFTWARE ENGINEER SALES 07/02/2016 8:19 AM SOFTWARE ENGINEER SALES 5 mg amLODIPine (NORVASC) tablet 5 mg Given 5 mg, Oral, Daily, First dose on Wed06/29/16 at 2030 5 mg Given 07/01/2016 8:02 AM SOFTWARE ENGINEER SALES 5 mg Given 06/30/2016 8:28 AM SOFTWARE ENGINEER SALES 07/02/2016 8:19 AM SOFTWARE ENGINEER SALES 20 mg citalopram (CeleXA) tablet 20 mg Given 20 mg, Oral, Daily, First dose on Wed06/29/16 at 2030 20 mg Given 07/01/2016 8:02 AM SOFTWARE ENGINEER SALES 20 mg Given 06/30/2016 8:28 AM SOFTWARE ENGINEER SALES 07/02/2016 3:18 PM SOFTWARE ENGINEER SALES 5 mL codeine-guaifenesin (GUAIFENESIN AC) Given 10-100 mg/5 mL liquid 5 mL 5 mL, Oral, Every 4 hours PRN, cough, Starting Wed06/30/16 at 1153 5 mL Given 07/02/2016 10:10 AM SOFTWARE ENGINEER SALES 5 mL Given 07/02/2016 6:07 AM SOFTWARE ENGINEER SALES 06/29/2016 3:41 PM SOFTWARE ENGINEER SALES 25 mcg fentaNYL (SUBLIMAZE) 50 mcg/mL injection Given 25 mcg 25 mcg, Intravenous, Once, Wed06/29/16 at 1533, For 1 dose, Administer over 2 minutes; max dose for IVP is 2 mcg/kg. Note: Limit does not apply to patients who may be tolerant to opioid therapy o r on continuous IV or PO opiate therapy., 06/29/2016 5:23 PM SOFTWARE ENGINEER SALES 25 mcg fentaNYL (SUBLIMAZE) 50 mcg/mL injection Given 25 mcg 25 mcg, Intravenous, Once, Wed06/29/16 at 1702, For 1 dose, Administer over 2 minutes; max dose for IVP is 2 mcg/kg. Note: Limit does not apply to patients who may be tolerant to opioid therapy o r on continuous IV or PO opiate therapy., 07/02/2016 6:08 AM SOFTWARE ENGINEER SALES 50 mcg fentaNYL (SUBLIMAZE) 50 mcg/mL injection Given 25-50 mcg 25-50 mcg, Intravenous, Every 4 hours PRN, pain, for moderate (4-6) or severe (7-10) pain, Starting Wed06/29/16 at 2007, Administer over 2 minutes; max dose for IVP is 2 mcg/kg. Note: Limit does not apply to patients who may be tolerant to opioid therapy or on continuous IV or PO opiate therapy., 50 mcg Given 07/02/2016 2:19 AM SOFTWARE ENGINEER SALES 50 mcg Given 07/01/2016 9:08 PM SOFTWARE ENGINEER SALES 07/02/2016 7:21 AM SOFTWARE ENGINEER SALES 1 puff fluticasone-vilanterol (BREO ELLIPTA) Given 100-25 mcg/actuation inhaler 1 puff 1 puff, Inhalation, Daily, First dose o n 06/30/16 at 0900, Rinse mouth with water after use if patient not on vent. , 1 puff Given 07/01/2016 7:18 AM SOFTWARE ENGINEER SALES 1 puff Given 06/30/2016 7:15 AM SOFTWARE ENGINEER SALES fluticasone-vilanterol (BREO ELLIPTA) 100-25 mcg/actuation inhaler 1 puff 1 puff, Inhalation, Daily, First dose (after last modification) on Wed07/03/16 at 0800, Rinse mouth with wate r after use if patient not on vent. , 07/02/2016 8:19 AM SOFTWARE ENGINEER SALES 300 mg gabapentin (NEURONTIN) capsule 300 mg Given 300 mg, Oral, 3 times daily, First dose on Wed06/29/16 at 2100 300 mg Given 07/01/2016 8:04 PM SOFTWARE ENGINEER SALES 300 mg Given 07/01/2016 3:24 PM SOFTWARE ENGINEER SALES glucagon (GLUCAGEN) injection 1 mg 1 mg, Intramuscular, As needed, low blood sugar, low blood sugar, Starting Wed06/29/16 at 2006, If no IV access. May give IM or SQ in arm and turn patient on side., glucagon (GLUCAGEN) injection 1 mg 1 mg, Subcutaneous, As needed, low bloo d sugar, low blood sugar, Starting Wed06/29/16 at 2006, If no IV access. May give IM or SQ in arm and turn patient o n side., 07/02/2016 6:07 AM SOFTWARE ENGINEER SALES 5,000 Units Abdomina l Tissue heparin (porcine) 5,000 unit/mL Given injection 5,000 Units 5,000 Units, Subcutaneous, Every 8 hours, First dose on Wed06/29/16 at 220 0 5,000 Units Abdominal Tissue Given 07/01/2016 9:08 PM SOFTWARE ENGINEER SALES 5,000 Units Abdominal Tissue Given 07/01/2016 1:11 PM SOFTWARE ENGINEER SALES 07/02/2016 1:28 AM SOFTWARE ENGINEER SALES 1 tablet HYDROcodone-acetaminophen (NORCO) 5-325 Given mg per tablet 1 tablet 1 tablet, Oral, Every 6 hours PRN, mild pain (pain score 1-3), moderate pain (pain score 4-6), Starting Wed06/29/16 at 2007, Do not exceed 4 GM/DAY of acetaminophen. If 65 or older do not exceed 3 GM/DAY. If chronic alcoholic d o not exceed 2 GM/DAY., 1 tablet Given 07/01/2016 8:04 PM SOFTWARE ENGINEER SALES 1 tablet Given 07/01/2016 3:24 PM SOFTWARE ENGINEER SALES 07/02/2016 3:18 PM SOFTWARE ENGINEER SALES 1 tablet HYDROcodone-acetaminophen (NORCO) 5-325 Given mg per tablet 1 tablet 1 tablet, Oral, Every 4 hours PRN, mild pain (pain score 1-3), moderate pain (pain score 4-6), Starting Ju 07/02/16 at 0945, Do not exceed 4 GM/DAY of acetaminophen. If 65 or older do not exceed 3 GM/DAY. If chronic alcoholic d o not exceed 2 GM/DAY., 1 tablet Given 07/02/2016 10:11 AM SOFTWARE ENGINEER SALES 06/29/2016 9:45 PM SOFTWARE ENGINEER SALES 10 Units Abdomina l Tissue insulin glargine (LANTUS) injection 10 Given Units 10 Units, Subcutaneous, Nightly, First dose on Wed06/29/16 at 209906/30/2016 9:30 PM SOFTWARE ENGINEER SALES 15 Units Left Arm insulin glargine (LANTUS) injection 15 Given Units 15 Units, Subcutaneous, Nightly, First dose (after last modification) on Wed06/30/16 at 209907/01/2016 9:08 PM SOFTWARE ENGINEER SALES 17 Units Abdomina l Tissue insulin glargine (LANTUS) injection 17 Given Units 17 Units, Subcutaneous, Nightly, First dose (after last modification) on Wed07/01/16 at 209907/02/2016 12:06 PM SOFTWARE ENGINEER SALES 2 Units Right Ar m insulin lispro (HumaLOG) injection 2-12 Given Units 2-12 Units, Subcutaneous, 4 times daily before meals and nightly, First dose on Wed06/29/16 at 2100, LEVEL 4 Give in addition to scheduled [...] blood glucose check - dose per table, 6 Units Abdominal Tissue Given 07/01/2016 9:08 PM SOFTWARE ENGINEER SALES 8 Units Right Arm Given 07/01/2016 5:25 PM SOFTWARE ENGINEER SALES 06/29/2016 7:52 PM SOFTWARE ENGINEER SALES 78 mL iohexol (OMNIPAQUE) 350 mg iodine/mL Given injection 78 mL 78 mL, Intravenous, Once in imaging, contrast, Starting Wed06/29/16 at 1952, For 1 dose 06/29/2016 4:33 PM SOFTWARE ENGINEER SALES 3 mL ipratropium-albuterol (DUO-NEB) 0.5-3 Given mg/3 mL nebulizer solution 3 mL 3 mL, Inhalation, Once, Wed06/29/16 at 1533, For 1 dose 07/02/2016 7:20 AM SOFTWARE ENGINEER SALES 3 mL ipratropium-albuterol (DUO-NEB) 0.5-3 Given mg/3 mL nebulizer solution 3 mL 3 mL, Inhalation, 4 times daily, First dose on Wed06/29/16 at 2100 3 mL Given 07/01/2016 8:53 PM SOFTWARE ENGINEER SALES 3 mL Given 07/01/2016 2:54 PM SOFTWARE ENGINEER SALES 07/02/2016 11:00 AM SOFTWARE ENGINEER SALES 3 mL ipratropium-albuterol (DUO-NEB) 0.5-3 Given mg/3 mL nebulizer solution 3 mL 3 mL, Inhalation, 4 times daily, First dose (after last modification) on Ju 07/02/16 at 1200 06/29/2016 5:26 PM SOFTWARE ENGINEER SALES 500 mg 100 mL/hr levofloxacin (LEVAQUIN) IVPB 500 mg New Bag (premix) 500 mg, Intravenous, at 100 mL/hr, Once , Indications: COPD, Wed06/29/16 at 1718, For 1 dose 07/02/2016 9:51 AM SOFTWARE ENGINEER SALES 500 mg 100 mL/hr levofloxacin (LEVAQUIN) IVPB 500 mg New Bag (premix) 500 mg, Intravenous, at 100 mL/hr, Daily, Indications: COPD, First dose on Wed06/30/16 at 1000 500 mg 100 mL/hr New Bag 07/01/2016 10:18 AM SOFTWARE ENGINEER SALES 500 mg 100 mL/hr New Bag 06/30/2016 9:45 AM SOFTWARE ENGINEER SALES 06/30/2016 8:28 AM SOFTWARE ENGINEER SALES 40 mg methylPREDNISolone sod suc(PF) Given (Solu-MEDROL) 40 mg/mL injection 40 mg 40 mg, Intravenous, Every 8 hours scheduled, First dose on Wed06/29/16 at 2030 40 mg Given 06/30/2016 1:05 AM SOFTWARE ENGINEER SALES 40 mg Given 06/29/2016 9:46 PM SOFTWARE ENGINEER SALES 07/02/2016 8:19 AM SOFTWARE ENGINEER SALES 100 mg metoprolol tartrate (LOPRESSOR) tablet Given 100 mg 100 mg, Oral, 2 times daily, First dose on Wed06/30/16 at 1245 100 mg Given 07/01/2016 8:04 PM SOFTWARE ENGINEER SALES 100 mg Given 07/01/2016 8:02 AM SOFTWARE ENGINEER SALES 06/29/2016 3:41 PM SOFTWARE ENGINEER SALES 4 mg ondansetron (ZOFRAN) 4 mg/2 mL injection Given 4 mg 4 mg, Intravenous, Once, Wed06/29/16 at 1533, For 1 dose 06/29/2016 5:23 PM SOFTWARE ENGINEER SALES 4 mg ondansetron (ZOFRAN) 4 mg/2 mL injection Given 4 mg 4 mg, Intravenous, Once, Wed06/29/16 at 1702, For 1 dose 07/02/2016 6:08 AM SOFTWARE ENGINEER SALES 40 mg pantoprazole (PROTONIX) EC tablet 40 mg Given 40 mg, Oral, Every morning before breakfast, First dose on Wed06/30/16 at 0730, DO NOT CRUSH OR CHEW., 40 mg Given 07/01/2016 8:02 AM SOFTWARE ENGINEER SALES 40 mg Given 06/30/2016 8:28 AM SOFTWARE ENGINEER SALES 07/02/2016 6:24 AM SOFTWARE ENGINEER SALES 17 g polyethylene glycol (GLYCOLAX) packet 17 Given g 17 g, Oral, Daily PRN, constipation, constipation, Starting Wed06/29/16 at 2007, Mix in 4-8 ounces of liquid. Hold these medications if patient has had loose stool or diarrhea within previous 24 hours., 07/01/2016 8:05 PM SOFTWARE ENGINEER SALES 40 mg pravastatin (PRAVACHOL) tablet 40 mg Given 40 mg, Oral, Nightly, First dose on Wed06/29/16 at 2100 40 mg Given 06/30/2016 7:48 PM SOFTWARE ENGINEER SALES 40 mg Given 06/29/2016 9:46 PM SOFTWARE ENGINEER SALES 07/02/2016 8:19 AM SOFTWARE ENGINEER SALES 40 mg predniSONE (DELTASONE) tablet 40 mg Given 40 mg, Oral, Daily, First dose on Wed06/30/16 at 0900, Give with food to reduce GI upset, 40 mg Given 07/01/2016 8:02 AM SOFTWARE ENGINEER SALES 40 mg Given 06/30/2016 8:29 AM SOFTWARE ENGINEER SALES 07/02/2016 8:18 AM SOFTWARE ENGINEER SALES 1 tablet senna-docusate (PERICOLACE) 8.6-50 mg 1 Given tablet 1 tablet, Oral, 2 times daily, First dose on Wed07/01/16 at 0900 1 tablet Given 07/01/2016 8:04 PM SOFTWARE ENGINEER SALES 1 tablet Given 07/01/2016 9:00 AM SOFTWARE ENGINEER SALES 07/02/2016 9:50 AM SOFTWARE ENGINEER SALES 25 mL 100 mL/hr sodium chloride 0.9% (NS) flush bag New Bag 25 mL, Intravenous, at 100 mL/hr, Continuous PRN, to flush line, Starting Wed06/30/16 at 0934, Only use a New Bag action if you are hanging a new bag This bag expires 24 hours after hanging. To be implemented as an intravenous flush following intermitten t infusions where there is no primary infusion. Patients with fluid restrictions may be excluded., 25 mL 100 mL/hr New Bag 06/30/2016 9:44 AM SOFTWARE ENGINEER SALES documented in this encounter
--- OUTSIDE RECORDS SUMMARY | 2019-11-28 22:35 | XMS REPORT | Encounter Summary ---
Author Author [facility] Organization [facility] Address Unknown Phone Unavailable Care Team Providers Care Sheet Writer Name Role Phone Ebony Sharp MD PCP Encounter Details Care Team Description Date Type Department Adelaida Olivas MD [address] [facility] [address] [place] [address] [phone] Other specified pre-operative examinatio n 07/23/2016 Lab [facility] [phone] Social History Date Tobacco Use Types Packs/Day [...] Description Date [place] [address] [place] [address] [phone] 02/29/2020 Office Visit Urology documented as of this encounter Procedures Comments Procedure Name Priority Date/Time Associated Diag nosis APTT Routine 07/23/2016 Other specified 4:29 PM END USER CONSULTANT pre-operative examination PROTHROMBIN TIME/INR Routine 07/23/2016 Other spe cified 4:29 PM END USER CONSULTANT pre-operative examination COMPLETE BLOOD COUNT Routine 07/23/2016 Other spe cified 4:29 PM END USER CONSULTANT pre-operative examination BASIC METABOLIC PANEL Routine 07/23/2016 Other sp ecified 4:29 PM END USER CONSULTANT pre-operative examination documented in this encounter Results * Prothrombin Time/INR (07/23/2016 4:29 PM END USER CONSULTANT) Protime 12.8 11.4 - 15.0 sec [facility] INR 1.0 0.8 - 1.2 [facility] Specimen Blood Performing Organization Address City/State/[facility] Ph one Number [facility] [address] [place] [address] [facility] [address] [place] [place] [address], [place] [phone] [facility] * APTT (07/23/2016 4:29 PM END USER CONSULTANT) APTT 25 22 - 34 sec [facility] Specimen Blood Performing Organization Address City/State/[facility] Ph one Number [facility] [address] [place] [address] [facility] [address] [place] [address], [place] [phone] [facility] * Complete Blood Count (07/23/2016 4:29 PM END USER CONSULTANT) WBC 8.75 4.00 - 11.00 TH/uL [facility] RBC 4.00 4.00 - 5.00 MIL/uL [facility] Hemoglobin 12.9 12.0 - 15.0 g/dL [facility] Hematocrit 39 36 - 45 % [facility] MCV 98 80 - 99 fL [facility] MCH 32 27 - 34 pg [facility] MCHC 33 32 - 36 % [facility] RDW 13.4 9.0 - 14.5 % [facility] Platelet Count 192 140 - 400 TH/uL [facility] MPV 9.8 9.4 - 12.3 fL [facility] Specimen Blood Performing Organization Address City/State/Zipcode Ph one Number [facility] [address] [place] [address] [facility] [address] [facility] [place] [address], [facility] * Basic Metabolic Panel (07/23/2016 4:29 PM END USER CONSULTANT) [facility] Sodium 145 133 - 147 MEQ/L [facility] Potassium 3.7 3.5 - 5.3 MEQ/L [facility] Chloride 102 96 - 112 MEQ/L [facility] Carbon Dioxide 27 20 - 32 MEQ/L [facility] Anion Gap 16 5 - 17 [facility] Calcium 9.2 8.4 - 10.5 mg/dL [facility] Glucose 210 (H) 70 - 100 mg/dL [facility] Blood Urea 13 7 - 26 mg/dL [facility] Nitrogen [facility] Creatinine 0.8 0.4 - 1.1 mg/dL [facility] eGFR Female AA 87 60 - 200 [facility] Comment[facility] Chronic Kidney Disease less [facility] than 60 mL/min/1.73 sq.m Kidney failure less than 15 mL/min/1.73 sq.m eGFR Female 72 60 - 200 [facility]AA Comment: [facility] Chronic Kidney Disease less [facility] than 60 mL/min/1.73 sq.m Kidney failure less than 15 mL/min/1.73 sq.m Specimen Blood Performing Organization Address City/State/Zipcode Ph one Number [facility] [address] [facility] [place] [address] [facility] [address] [facility] [place] [address], [facility] documented in this encounter Visit Diagnoses Diagnosis Other specified pre-operative examinati on documented in this encounter
--- OUTSIDE RECORDS SUMMARY | 2019-11-28 22:35 | XMS REPORT | Encounter Summary ---
Author Author [facility] Organization [facility] Address Unknown Phone Unavailable Care Team Providers Care Talent Advisor Name Role Phone Ebony Sharp MD PCP Encounter Details Care Team Description Date Type Department Medardo Radford MD [address] [facility] [address] [place] [address] [phone] 07/06/2016 Telephone [facility] [address] [facility] [address] [place] [address] Social History Date Tobacco Use Types Packs/Day [...] encounter Miscellaneous Notes * Telephone Encounter - Eleni Jauregui MA - 07/06/2016 11:50 AM TELEPHONE INTERVIEWER Patient called stating we were supposed to fax a sleep study and CPAP compliance data to the bariatric center for her clearance for surgery. She said they never received it and asked us to refax it. I called her back and told her I would re fax them. Pt understood. PHONE INTERVIEWER documented in this encounter Plan of Treatment Care Team Description Date [place] [address] [place] [address] [phone] 02/29/2020 Office Visit Urology documented as of this encounter Visit Diagnoses Not on filedocumented in this encounter
--- OUTSIDE RECORDS SUMMARY | 2019-11-28 22:35 | XMS REPORT | Encounter Summary ---
Author Author [facility] Organization [facility] Address Unknown Phone Unavailable Care Team Providers Care Mathematical Physicist Name Role Phone Ebony Sharp MD PCP Encounter Details Care Team Description Date Type Department Adelaida Olivas MD [address] [facility] [address] [place], [place] [id number] Other specified pre-operative examinatio n (Primary Dx) 07/23/2016 Transcribe [facility] [phone] Social History Date Tobacco Use Types Packs/Day [...] Description Date [place] [address] [place] [address] [phone] 02/29/2020 Office Visit Urology documented as of this encounter Results * Prothrombin Time/INR (07/23/2016 4:29 PM TECHNOLOGY MANAGER) Protime 12.8 11.4 - 15.[address] [facility] INR 1.0 0.8 - 1.2 [facility] Specimen Blood Performing Organization Address City/State/Zipcode Ph one Number [facility] [address] [place] [place] [address] [facility] [address] [place] [address], [facility] * APTT (07/23/2016 4:29 PM TECHNOLOGY MANAGER) APTT 25 22 - 34 sec [facility] Specimen Blood Performing Organization Address [facility] Ph one Number [facility] [address] [place] [address] [facility] [address] [place] [address], [facility] * Complete Blood Count (07/23/2016 4:29 PM TECHNOLOGY MANAGER) WBC 8.75 4.00 - 11.00 TH/uL [facility] [...] 33 32 - 36 % [facility] RDW 13.4 9.0 - 14.5 % [facility] Platelet Count 192 140 - 400 TH/uL [facility] MPV 9.8 9.4 - 12.3 fL [facility] Specimen Blood Performing Organization Address City/State/[facility] Ph one Number [facility] [address] [place], [place] [id number] [facility] [address] [place] [place] [address], [place] [phone] [facility] * Basic Metabolic Panel (07/23/2016 4:29 PM TECHNOLOGY MANAGER) Sodium 145 133 - 147 MEQ/L [facility] Potassium 3.7 3.5 - 5.3 MEQ/L [facility] Chloride 102 96 - 112 MEQ/L [facility] Carbon Dioxide 27 20 - 32 MEQ/L [facility] Anion Gap 16 5 - 17 [facility] Calcium 9.2 8.4 - 10.5 mg/dL [facility] Glucose 210 (H) 70 - 100 mg/dL [facility] Blood Urea 13 7 - 26 mg/dL [facility] Nitrogen [facility] Creatinine 0.8 0.4 - 1.1 mg/dL [facility] eGFR Female AA 87 60 - 200 [facility] Comment: [facility] Chronic Kidney Disease less [...] [facility] [address] [place] [facility] [address] [facility] [address] [place] [address] [place] [address], [place] [phone] [facility] documented in this encounter Visit Diagnoses Diagnosis Other specified pre-operative examinati on documented in this encounter Additional Health Concerns Resolved Time Infection Noted Time 04/19/2018 12:13 PM CDT Influenza 08/30/2017 10:13 AM TECHNOLOGY MANAGER 08/30/2019 1:09 PM TECHNOLOGY MANAGER Influenza - Rule Out 08/30/2019 11:32 AM TECHNOLOGY MANAGER 09/17/2019 8:17 AM TECHNOLOGY MANAGER RSV 08/31/2019 6:35 PM TECHNOLOGY MANAGER documented as of this encounter
--- OUTSIDE RECORDS SUMMARY | 2019-11-28 22:35 | XMS REPORT | Encounter Summary ---
Author Author [facility] Organization [facility] Address Unknown Phone Unavailable Care Team Providers Care Life Scientist Name Role Phone Ebony Sharp MD PCP Encounter Details Care Team Description Date Type Department Adelaida Olivas MD [address] [place] [address] 08/06/2016 Hist-Telephone [facility] [address] [facility] [address] [place], [place] [id number] Social History Date Tobacco Use Types Packs/Day [...] Clinic Note - Adelaida Olivas MD - 08/06/2016 1:25 PM SUPERVISOR MATRIX Phone Note Call from Patient Summary of call: Patient's daughter Lauryn is calling and would like to know how long the patient's surgery will last. Please call Lauryn back at Call taken by: Ivelisse Johnson on August 06, 2016 1:25 PM Follow-up for Phone Call Follow-up Details: Placed a call to the patient left a voicemail letitng her kno w Dr Olivas allowed about 2.5 hours for the surgery. Follow-up by: Yuki Londono on August 06, 2016 1:31 PM RVISOR MATRIX documented in this encounter Plan of Treatment Care Team Description Date [place] [address] [place] [address] [phone] 02/29/2020 Office Visit Urology documented as of this encounter Visit Diagnoses Not on filedocumented in this encounter Additional Health Concerns Resolved Time Infection Noted Time 04/19/2018 12:13 PM CDT Influenza 08/30/2017 10:13 AM SUPERVISOR MATRIX 08/30/2019 1:09 PM SUPERVISOR MATRIX Influenza - Rule Out 08/30/2019 11:32 AM SUPERVISOR MATRIX 09/17/2019 8:17 AM SUPERVISOR MATRIX RSV 08/31/2019 6:35 PM SUPERVISOR MATRIX documented as of this encounter
--- OUTSIDE RECORDS SUMMARY | 2019-11-28 22:35 | XMS REPORT | Encounter Summary ---
Author Author [facility] Organization [facility] Address Unknown Phone Unavailable Care Team Providers Care Saw Tailer Name Role Phone Ebony Sharp MD PCP Encounter Details Care Team Description Date Type Department Ebony Sharp MD [address] [facility] [address] [place] [address] [phone] 07/07/2016 Documentation [facility] (walk-in clinic) [address] [facility] [address] [place], [place] [id number] Social History Date Tobacco Use Types Packs/Day [...] Description Date [place] [address] [place] [address] [phone] 02/29/2020 Office Visit Urology documented as of this encounter Visit Diagnoses Not on filedocumented in this encounter
--- OUTSIDE RECORDS SUMMARY | 2019-11-28 22:36 | XMS REPORT | Encounter Summary ---
Author Author [facility] Organization [facility] Address Unknown Phone Unavailable Care Team Providers Care Teleprinter Installer Name Role Phone Ebony Sharp MD PCP Reason for Visit * Reason Comments Shortness of Breath Pt reprots SOA x1 month, wa s given prednisone by [facility]ER, not feeling any better, has hx of COPD. Pt also reports chest pain when she breaths and coughing up a lot of mucus today Chest pain Encounter Details Care Team Description Date Type Department Mike Kelly MD [address] [facility] [place] [address] COPD exacerbation (HCC) (Primary Dx) 06/05/2016 Emergency [facility] 06/06/2016 [address] [place] [address] Social History Date Tobacco Use [...] Signs Reading Time Taken Comments Vital Sign 145/83 06/06/2016 2:30 AM CDT Blood Pressure 76 06/06/2016 2:45 AM CDT Pulse 36.9 C (98.4 F) 06/05/2016 9:17 PM CDT Temperature 18 06/06/2016 2:45 AM CDT Respiratory Rate 95% 06/06/2016 2:45 AM CDT Oxygen Saturation - - Inhaled Oxygen Concentration 105.7 kg (233 lb) 06/05/2016 9:17 PM CDT Weight 157.5 cm (5' 2") 06/05/2016 9:17 PM CDT Height 42.62 06/05/2016 9:17 PM CDT Body Mass Index documented in this encounter Discharge Instructions * Attachments The following attachments cannot be sent through Care Everywhere.* COPD FLARE (IVORIAN) documented in this encounter Medications at Time of Discharge Start Date End Date Medication Sig Dispensed Refills 02/14/2016 01/14/2028 ipratropium-albuterol Inhale 3 mL 4 360 mL 11 (DUO-NEB) 0.5-3 mg/3 mL (four) times nebulizer a day. OXYGEN THERAPY 2 L/min as 0 needed. 06/05/2016 06/15/2016 doxycycline monohydrate Take 1 tablet 20 tablet 0 (ADOXA) 100 MG tablet (100 mg total) by mouth 2 (two) times a day. 06/05/2016 06/15/2016 predniSONE (DELTASONE) 20 Take 3 21 tablet 0 MG tablet tablets (60 mg total) by mouth daily. 02/14/2016 06/24/2017 albuterol (PROAIR HFA) 90 Inhale 1 puff 18 g 11 mcg/actuation HFA inhaler every 4 (four) hours as needed for wheezing. 02/14/2016 03/29/2017 amitriptyline (ELAVIL) 25 Take 1 tablet 90 tablet 3 MG tablet (25 mg total) by mouth nightly. 02/14/2016 07/02/2016 amLODIPine (NORVASC) 2.5 Take 1 tablet 90 tablet 3 MG tablet (2.5 mg total) by mouth daily. Take one daily. 06/26/2016 aspirin 81 MG EC tablet Take 81 mg by 0 mouth daily. 02/14/2016 03/29/2017 citalopram (CELEXA) 20 MG Take 1 tablet 90 tablet 3 tablet (20 mg total) by mouth daily. 09/24/2015 07/02/2016 famotidine (PEPCID) 20 MG Take one 180 tablet 1 tablet tablet (20 mg total) by mouth 2 (two) times a day. 02/14/2016 04/08/2017 fluticasone-vilanterol Inhale 1 puff 3 each 3 (BREO ELLIPTA) 200-25 daily. mcg/actuation INHALERIndications: maintenance therapy for asthma 05/09/2016 07/02/2016 FLUVIRIN [id number] 45 mcg ADM 0.5ML IM 0 (15 mcg x 3)/0.5 mL Susp UTD 02/14/2016 02/18/2017 gabapentin (NEURONTIN) Take 1 270 capsule 3 300 MG capsule capsule (300 mg total) by mouth 3 (three) times a day. 09/05/2015 08/07/2016 HYDROcodone-acetaminophen Take one 20 tablet 0 (NORCO) 5-325 mg per tablet by tablet mouth every 6 (six) hours as needed for pain. Do not drive while taking this medication. 02/14/2016 06/20/2016 insulin glargine (LANTUS) Inject 15 13.5 mL 3 100 unit/mL injection Units under the skin nightly. 12/02/2015 11/05/2016 insulin syringe-needle Type 2 100 each 0 U-100 0.3 mL 31 x 5/16" diabetes Syrg E11.9 03/02/2016 07/16/2016 LANTUS 100 [...] 02/04/2017 omeprazole (PRILOSEC) 20 0 MG capsule 05/09/2016 07/02/2016 PNEUMOVAX 23 25 mcg/0.5 ADM 0.5ML IM 0 mL injection UTD 02/14/2016 04/08/2017 simvastatin (ZOCOR) 20 MG Take 1 tablet 90 tablet 3 tablet (20 mg total) by mouth nightly. documented as of this encounter ED Notes * Gege Jeff MD - 06/06/2016 2:41 AM CDT 0241-Patient was checked out to me by Dr. Kelly. She was awaiting her V/Q study and subsequent results. This has come back with a low probability for PE. Dr. Gutiérrez yes had suspected a COPD exacerbation and had already written prescriptions for prednisone and doxycycline. We will discharge per prior plan. NM Lung Scan VQ ED Interpretation VRC read: Low probability for PE. XR Chest 2 views (PA and lateral) (Results Pending) The patient's vitals signs are Visit Vitals BP 135/88 Pulse 71 Temp 36.9 C (98.4 F) (Oral) Resp 9 Ht 1.575 m (5' 2") Wt 105.7 kg (233 lb) SpO2 94% BMI 42.62 kg/m2 The labs from this visit are Results for orders placed or performed during the hospital encounter of 06/05/16 (from the past 24 hour(s)) Comprehensive Metabolic Panel Result Value Ref Range Sodium 140 133 - 147 MEQ/L Potassium 3.9 3.5 - 5.3 MEQ/L Chloride 102 96 - 112 MEQ/L Carbon Dioxide 27 20 - 32 MEQ/L Anion Gap 11 5 - 17 Calcium 8.7 8.4 - 10.5 mg/dL Glucose 160 (H) 70 - 100 mg/dL Protein Total Serum 7.6 6.0 - 8.2 g/dL Albumin 4.2 3.5 - 5.0 g/dL Alkaline Phosphatase 76 42 - 140 IU/L Alanine Aminotransferase 33 13 - 69 IU/L Aspartate Aminotransferase 32 15 - 46 IU/L Bilirubin Total 0.5 0.2 - 1.3 mg/dL Blood Urea Nitrogen 19 7 - 26 mg/dL Creatinine 0.8 0.4 - 1.1 mg/dL GFR Female AA 87 60 - 200 GFR Female Non-AA 72 60 - 200 CBC and Diff (manual diff if necessary) Result Value Ref Range WBC 11.24 (H) 4.00 - 11.00 TH/uL RBC 4.10 4.00 - 5.00 MIL/uL Hemoglobin 13.5 12.0 - 15.0 g/dL Hematocrit 41 36 - 45 % MCV 100 (H) 80 - 99 fL MCH 33 27 - 34 pg MCHC 33 32 - 36 % RDW 13.7 9.0 - 14.5 % Platelet Count 167 140 - 400 TH/uL MPV 9.7 9.4 - 12.3 fL %Segmented Neutrophils 62 45 - 78 % %Lymphocytes 26 15 - 47 % %Monocytes 9 0 - 12 % %Eosinophils 3 0 - 7 % %Basophils 0 0 - 2 % # Granulocytes 7.01 (H) 1.7 - 6.8 TH/uL # Lymphocytes 2.92 1.0 - 3.3 TH/uL # Monocytes 0.96 (H) 0.2 - 0.9 TH/uL # Eosinophils 0.33 0.0 - 0.4 TH/uL # Basophils 0.02 0.0 - 0.1 TH/uL Prothrombin Time/INR - ONLY if patient is on Warfarin Result Value Ref Range Protime 12.5 11.4 - 15.0 sec INR 0.9 0.8 - 1.2 Troponin Result Value Ref Range Troponin <0.01 0.00 - 0.03 ng/mL NTproBNP Result Value Ref Range NTproBNP 54 pg/mL D Dimer Result Value Ref Range D Dimer 1.32 (H) 0.00 - 0.40 ug/mL FEU The final diagnosis is SNOMED CT(R) 1. COPD exacerbation ACUTE EXACERBATION OF CHRONIC OBSTRUCTIVE AIRWAYS DISEASE Medardo Radford MD [address] [address] Gege Jeff MD 06/06/16 0242 * Mike Kelly MD - 06/05/2016 10:10 PM CDT 06/05/[address] [facility] History Chief Complaint Patient presents with Shortness of Breath Pt reprots SOA x1 month, was given prednisone by [facility], not feeling any better, h as hx of COPD. Pt also reports chest pain when she breaths and coughing up a lot of mucus today Chest pain HPI Comments: Patient presents to the emergency department complaining of shortn ess of breath. She states this started about a month ago. Patient was given pred nisone 3 weeks ago. She states it is not improved. She did see her pulmonary doc tor 2 weeks ago. Today she says she was short of breath with minimal activity. S he is on 2 L of oxygen normally. She does do breathing treatments at home. Denie s fever. She has had more sputum production. Patient is a 65 y.o. female presenting with shortness of breath and chest pain. Shortness of Breath Associated symptoms: chest pain Associated symptoms: no fever Chest pain Associated symptoms: shortness of breath Associated symptoms: no fever Past Medical History Diagnosis Date Arthritis COPD (chronic obstructive pulmonary disease) Diabetes mellitus Hyperlipidemia Hypertension Past Surgical History Procedure Laterality Date section, classic Cholecystectomy Hysterectomy Cataract extraction, bilateral Family History Problem Relation Age of Onset Cancer Mother Stroke Mother Cancer Father Stroke Father Social History Substance Use Topics Smoking status: Former Smoker Quit date: 09/14/2009 Smokeless tobacco: Never Used Alcohol use No Review of Systems Constitutional: Negative for fever. HENT: Negative. Respiratory: Positive for shortness of breath. Cardiovascular: Positive for chest pain. Musculoskeletal: Negative. Neurological: Negative. All other systems reviewed and are negative. Physical Exam Visit Vitals BP 156/89 Pulse 79 Temp 36.9 C (98.4 F) (Oral) Resp 11 Ht 1.575 m (5' 2") Wt 105.7 kg (233 lb) SpO2 95% BMI 42.62 kg/m2 Physical Exam Constitutional: She is oriented to person, place, and time. She appears well-dev eloped and well-nourished. HENT: Head: Normocephalic and atraumatic. Eyes: EOM are normal. Right eye exhibits no discharge. Neck: Normal range of motion. No tracheal deviation present. Cardiovascular: Normal rate, regular rhythm and normal heart sounds. Pulmonary/Chest: Effort normal and breath sounds normal. She has no wheezes. Abdominal: Soft. There is no tenderness. Musculoskeletal: Normal range of motion. She exhibits no tenderness. Neurological: She is alert and oriented to person, place, and time. No cranial n erve deficit. Skin: Skin is warm and dry. Psychiatric: She has a normal mood and affect. Her behavior is normal. Nursing note and vitals reviewed. ED Course Procedures MDM 11:[address] because of access. WIll do vq The labs from this visit are Results for orders placed or performed during the hospital encounter of 06/05/16 (from the past 24 hour(s)) Comprehensive Metabolic Panel Result Value Ref Range Sodium 140 133 - 147 MEQ/L Potassium 3.9 3.5 - 5.3 MEQ/L Chloride 102 96 - 112 MEQ/L Carbon Dioxide 27 20 - 32 MEQ/L Anion Gap 11 5 - 17 Calcium 8.7 8.4 - 10.5 mg/dL Glucose 160 (H) 70 - 100 mg/dL Protein Total Serum 7.6 6.0 - 8.2 g/dL Albumin 4.2 3.5 - 5.0 g/dL Alkaline Phosphatase 76 42 - 140 IU/L Alanine Aminotransferase 33 13 - 69 IU/L Aspartate Aminotransferase 32 15 - 46 IU/L Bilirubin Total 0.5 0.2 - 1.3 mg/dL Blood Urea Nitrogen 19 7 - 26 mg/dL Creatinine 0.8 0.4 - 1.1 mg/dL GFR Female AA 87 60 - 200 GFR Female Non-AA 72 60 - 200 CBC and Diff (manual diff if necessary) Result Value Ref Range WBC 11.24 (H) 4.00 - 11.00 TH/uL RBC 4.10 4.00 - 5.00 MIL/uL Hemoglobin 13.5 12.0 - 15.0 g/dL Hematocrit 41 36 - 45 % MCV 100 (H) 80 - 99 fL MCH 33 27 - 34 pg MCHC 33 32 - 36 % RDW 13.7 9.0 - 14.5 % Platelet Count 167 140 - 400 TH/uL MPV 9.7 9.4 - 12.3 fL %Segmented Neutrophils 62 45 - 78 % %Lymphocytes 26 15 - 47 % %Monocytes 9 0 - 12 % %Eosinophils 3 0 - 7 % %Basophils 0 0 - 2 % # Granulocytes 7.01 (H) 1.7 - 6.8 TH/uL # Lymphocytes 2.92 1.0 - 3.3 TH/uL # Monocytes 0.96 (H) 0.2 - 0.9 TH/uL # Eosinophils 0.33 0.0 - 0.4 TH/uL # Basophils 0.02 0.0 - 0.1 TH/uL Prothrombin Time/INR - ONLY if patient is on Warfarin Result Value Ref Range Protime 12.5 11.4 - 15.0 sec INR 0.9 0.8 - 1.2 Troponin Result Value Ref Range Troponin <0.01 0.00 - 0.03 ng/mL NTproBNP Result Value Ref Range NTproBNP 54 pg/mL D Dimer Result Value Ref Range D Dimer 1.32 (H) 0.00 - 0.40 ug/mL FEU The radiology results are XR Chest 2 views (PA and lateral) (Results Pending) NM Lung Scan VQ (Results Pending) Medardo Radford MD [address] [address] ED Course There is no data filed. ED Clinical Impression 1. COPD exacerbation Mike Kelly MD 06/05/16 1508 * Janet Brown, RN - 06/05/2016 9:16 PM CDT Pt reprots SOA x1 month, was given prednisone by [facility], not feeling any better, has hx of COPD. Pt also reports chest pain when she breaths and coughing up a lot of mucus today documented in this encounter Plan of Treatment Care Team Description Date [place] [address] [place] [id number] [phone] 02/29/2020 Office Visit Urology documented as of this encounter Procedures Comments Procedure Name Priority Date/Time Associated Diag nosis NM LUNG SCAN VQ STAT 06/06/2016 1:48 AM CDT D DIMER STAT 06/05/2016 10:09 PM CDT XR CHEST 2 VIEWS (PA AND STAT 06/05/2016 LATERAL) 10:03 PM CDT PULSE OXIMETRY, STAT 06/05/2016 CONTINUOUS 9:37 PM CDT TROPONIN STAT 06/05/2016 9:36 PM CDT PROTHROMBIN TIME/INR STAT 06/05/2016 9:36 PM CDT NTPROBNP STAT 06/05/2016 9:36 PM CDT COMPREHENSIVE METABOLIC STAT 06/05/2016 PANEL 9:36 PM CDT CBC AND DIFF (MANUAL DIFF STAT 06/05/2016 IF NECESSARY) 9:36 PM CDT ECG STAT 06/05/2016 9:18 PM CDT documented in this encounter Results * NM Lung Scan VQ (06/06/2016 1:48 AM CDT) Specimen Impressions Performed At [facility]. [facility] ATTESTATION STATEMENT: The Staff Radiologist has personally re viewed this study and agrees with the findings in this report. READING SITE: [facility] The Staff Radiologist has personally re viewed the images and dictated, reviewed, or edited the final report. Narrative Performed At Patient: ISIAH BENÍTEZ Sex#: Paulina # 1950 Jose#: [id number] [facility] Procedure Requested: [id number] NM LUNG SCAN VQ Reason for Exam: chest pain Exam Ordered: 06/05/2016 2 340 Exam Date/Time: 06/06/2016 01 48 Begin exam date/time: 06/06/2016 01 40 NM LUNG SCAN VQ DATE: 06/06/2016 3:43 AM INDICATION: Chest pain. TECHNIQUE: The patient was initially ve ntilated with 33 mCi of Tc-99m tagged DTPA. Static images were obtaine d. The patient was next injected with 5.5 mCi of Tc-99 m tagged MAA. Sim ilar static images were obtained. COMPARISON: VQ scan from 09/05/2015; thad st radiograph from one day prior FINDINGS: There is normal distribution of the iso stephen throughout the lung parenchyma on both ventilation and perf usion studies. There are no mismatched segmental or subsegmental de fects identified. A small amount of isotope was swallowed on the ventilation study. Procedure Note Interface, Rad Results In - 06/06/2016 9:07 AM CDT Patient: ISIAH BENÍTEZ Sex#: Paulina # 1950 Jose#: [id number] Location: [facility] Procedure Requested: [id number] NM LUNG SCAN VQ Reason for Exam: chest pain Exam Ordered: 06/05/2016 2340 Exam Date/Time: 06/06/2016 0148 Begin exam date/time: 06/06/2016 0140 NM LUNG SCAN VQ DATE: 06/06/2016 3:43 AM INDICATION: Chest pain. TECHNIQUE: The patient was initially ventilated with 33 mCi of Tc-99m tagged DTPA. Static images were obtained. The patient was next injected with 5.5 mCi of Tc-99 m tagged MAA. Similar static images were obtained. COMPARISON: VQ scan from 09/05/2015; chest radiograph from one day prior FINDINGS: There is normal distribution of the isotope throughout the lung parenchyma on both ventilation and perfusion studies. There are no mismatched segmental or subsegmental defects identified. A small amount of isotope was swallowed on the ventilation study. IMPRESSION Normal study. ATTESTATION STATEMENT: The Staff Radiologist has personally reviewed this study and agrees with the findings in this report. READING SITE: [facility] The Staff Radiologist has personally reviewed the images and dictated, reviewed, or edited the final report. Performing Organization Address [facility] one [facility] * D Dimer (06/05/2016 10:09 PM CDT) D Dimer 1.32 (H)Comment: Cutoff value 0.00 - 0.40 ug/m L [facility] for exclusion of venous [facility] thromboembolism is <0.40 ug/mL [facility] FEU. Specimen Blood Performing Organization Address [facility] one Number [facility] [address] [place] [address] [facility] [address] [place] [address], [facility] * XR Chest 2 views (PA and lateral) (06/05/2016 10:03 PM CDT) Specimen Impressions Performed At Left midlung zone subsegmental atelectasis. No acute [facility] cardiopulmonary process. ATTESTATION STATEMENT: The Staff Radiol ogist has personally reviewed the images and dictated, reviewed, or edite d the final report. READING SITE: [facility] The Staff Radiologist has personally re viewed the images and dictated, reviewed, or edited the final report. Narrative Performed At Patient: ISIAH BENÍTEZ Sex#: F # 1950 Jose#: [id number] Location: [facility]12 Procedure Requested: [id number] XR CHEST 2 VIEWS (PA AND LATERAL) Reason for Exam: soa Exam Ordered: 06/05/2016 2 137 Exam Date/Time: 06/05/2016 22 03 Begin exam date/time: 06/05/2016 21 50 XR CHEST 2 VIEWS (PA AND LATERAL) INDICATION: soa. COMPARISON STUDY: 12/31/2015. FINDINGS: Lungs: Normal lung volumes. Stable left midlung zone linear opacity, likely subsegmental atelectasis.. No fo rosalind consolidation. Normal pulmonary vasculature. Pleura: No pleural effusion or pneumoth orax. Heart and Mediastinum: Stable cardiomed iastinal silhouette and great vessels. Calcified mediastinal lymph no giselle, consistent with remote granulomatous disease. Skeletal Structures and Soft Tissues: T he osseous structures and soft tissues are stable. Procedure Note Interface, Rad Results In - 06/06/2016 9:07 AM CDT Patient: ISIAH BENÍTEZ Sex#: F # 1950 Jose#: [id number] [facility] Procedure Requested: [id number] XR CHEST 2 VIEWS (PA AND LATERAL) Reason for Exam: soa Exam Ordered: 06/05/20162136 Exam Date/Time: 06/05/20162202 Begin exam date/time: 06/05/20162149 XR CHEST 2 VIEWS (PA AND LATERAL) INDICATION: soa. COMPARISON STUDY: 12/31/2015. FINDINGS: Lungs: Normal lung volumes. Stable left midlung zone linear opacity, likely subsegmental atelectasis.. No focal consolidation. Normal pulmonary vasculature. Pleura: No pleural effusion or pneumothorax. Heart and Mediastinum: Stable cardiomediastinal silhouette and great vessels. Calcified mediastinal lymph nodes, consistent with remote granulomatous disease. Skeletal Structures and Soft Tissues: The osseous structures and soft tissues are stable. IMPRESSION Left midlung zone subsegmental atelectasis. No acute cardiopulmonary process. ATTESTATION STATEMENT: The Staff Radiologist has personally reviewed the images and dictated, reviewed, or edited the final report. READING SITE: [facility] The Staff Radiologist has personally reviewed the images and dictated, reviewed, or edited the final report. Performing Organization Address City/State/Zipcode Ph one Number [place] * NTproBNP (06/05/2016 9:36 PM CDT) NTproBNP 54 pg/mL [facility] Comment: [facility] NT-proBNP Reference Ranges: [facility] <50 yr <450 pg/mL 50-75 yr <900 pg/mL >75 yr <1800 pg/mL A cutoff value of 1200 pg/mL is recommended in patients 50 to 70 years of age with a GFR between 30 and 60. NT-proBNP is unreliable in patients with GFR <30. Specimen Blood Performing Organization Address [facility] one Number [facility] [address] [place], [place] [id number] [facility] [address] [facility] [place] [address], [place] [phone] [facility] * Troponin (06/05/2016 9:36 PM CDT) Troponin <0.01 0.00 - 0.03 ng/mL [facility] Comment: [facility] Troponin Value [facility] Interpretation 0.00 - 0.03 Healthy 0.04 - 0.12 Increased Cardiac Risk >0.12 Myocardial Infarction Troponin may not become elevated until 6 to 8 hours after onset of symptoms. Specimen Blood Performing Organization Address [facility] one Number [facility] [address] [place], [place] [id number] [facility] [address] [place] [address], [place] [phone] [facility] * Prothrombin Time/INR - ONLY if patient is on Warfarin (06/05/2016 9:36 PM CDT) Protime 12.5 11.4 - 15.0 sec [facility] INR 0.9 0.8 - 1.2 [facility] Specimen Blood Performing Organization Address [facility] one Number [facility] [address] [place], [place] [id number] [facility] [address] [facility] [place] [address], [place] [phone] [facility] * CBC and Diff (manual diff if necessary) (06/05/2016 9:36 PM CDT) [facility] Signature WBC 11.24 (H) 4.00 - 11.00 TH/uL [facility] RBC 4.10 4.00 - 5.00 MIL/uL [facility] Hemoglobin 13.5 12.0 - 15.0 g/dL [facility] Hematocrit 41 36 - 45 % [facility] MCV 100 (H) 80 - 99 fL [facility] MCH 33 27 - 34 pg [facility] MCHC 33 32 - 36 % [facility] RDW 13.7 9.0 - 14.5 % [facility] Platelet Count 167 140 - 400 TH/uL [facility] MPV 9.7 9.4 - 12.3 fL [facility] % Neutrophils 62 45 - 78 % [facility] %Lymphocytes 26 15 - 47 % [facility] %Monocytes 9 0 - 12 % [facility] %Eosinophils 3 0 - 7 % [facility] %Basophils 0 0 - 2 % [facility] # Granulocytes 7.01 (H) 1.7 - 6.8 TH/uL [facility] # Lymphocytes 2.92 1.0 - 3.3 TH/uL [facility] # Monocytes 0.96 (H) 0.2 - 0.9 TH/uL [facility] # Eosinophils 0.33 0.0 - 0.4 TH/uL [facility] # Basophils 0.02 0.0 - 0.1 TH/uL [facility] Specimen Blood Performing Organization Address City/State/Zipcode Ph one Number [facility] [address] [place] [address] [facility] [address] [facility] [place] [address], [place] [phone] [facility] * Comprehensive Metabolic Panel (06/05/2016 9:36 PM CDT) [facility] Sodium 140 133 - 147 MEQ/L [facility] Potassium 3.9 3.5 - 5.3 MEQ/L [facility] Chloride 102 96 - 112 MEQ/L [facility] Carbon Dioxide 27 20 - 32 MEQ/L [facility] Anion Gap 11 5 - 17 [facility] Calcium 8.7 8.4 - 10.5 mg/dL [facility] Glucose 160 (H) 70 - 100 mg/dL [facility] Protein Total 7.6 6.0 - 8.2 g/dL [facility] Serum [facility] Albumin 4.2 3.5 - 5.0 g/dL [facility] Alkaline 76 42 - 140 IU/L [facility] Phosphatase [facility] Alanine 33 13 - 69 IU/L [facility] Aminotransferas [facility] Aspartate 32 15 - 46 IU/L [facility] Aminotransferas [facility] Bilirubin Total 0.5 0.2 - 1.3 mg/dL [facility] Blood Urea 19 7 - 26 mg/dL [facility] Nitrogen [facility] Creatinine 0.8 0.4 - 1.1 mg/dL [facility] eGFR Female AA 87 60 - 200 [facility] Comment: [facility] Chronic Kidney Disease less [facility] than 60 mL/min/1.73 sq.m Kidney failure less than 15 mL/min/1.73 sq.m eGFR Female 72 60 - 200 [facility] Non-AA Comment: [facility] Chronic Kidney Disease less [facility] than 60 mL/min/1.73 sq.m Kidney failure less than 15 mL/min/1.73 sq.m Specimen Blood Performing Organization Address City/State/Zipcode Ph one Number [facility] [address] [place] [address] [facility] [address] [facility] [place] [address], [facility] * Electrocardiogram (ECG) (06/05/2016 9:18 PM CDT) Specimen Narrative Performed At [facility] ED Test Date: 2016-06-05 Pat Name: ISIAH BENÍTEZ Department: ERS Room: SED Gender: Female 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 : 1950 Requested By: SANTI TURK Order Number: [id number] Reading : Luca Lee Measurements Intervals Sundance Rate: 75 P: 56 NM: 160 QRS: 61 QRSD: 104 T: 62 QT: 400 QTc: 447 Interpretive Statements SINUS RHYTHM Compared to ECG 12/31/2015 14:02:38 No significant changes Electronically Signed On 06-11-2016 11: 25:04 CDT by Luca Lee Procedure Note Interface, External Ris In - 06/11/2016 11:25 AM CDT [facility] ED Test Date: 2016-06-05 Pat Name: ISIAH BENÍTEZ Department: ERS Room: SED Gender: Female 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 : 1950 Requested By: SANTI TURK Order Number: [id number] Reading : Luca Lee Measurements Intervals Sundance Rate: 75 P: 56 NM: 160 QRS: 61 QRSD: 104 T: 62 QT: 400 QTc: 447 Interpretive Statements SINUS RHYTHM Compared to ECG 12/31/2015 14:02:38 No significant changes Electronically Signed On 06-11-2016 11:25:04 CDT by Luca Lee Performing Organization Address City/State/Zipcode Ph one Number [email or web address] documented in this encounter Visit Diagnoses Diagnosis COPD exacerbation (HCC) Obstructive chronic bronchitis with exa cerbation documented in this encounter Administered Medications Action Date Dose Rate Site Medication Order MAR Action 06/05/2016 10:16 PM CDT 2.5 mg albuterol (ACCUNEB) nebulizer solution Given 2.5 mg 2.5 mg, Nebulization, Once, Wed 6 at 2210, For 1 dose 06/06/2016 2:50 AM CDT 1 tablet HYDROcodone-acetaminophen (NORCO) 5-325 Given mg per tablet 1 tablet 1 tablet, Oral, Once, 06/06/16 at 0250, For 1 dose, Do not exceed 4 GM/DA Y of acetaminophen. If 65 or older do no t exceed 3 GM/DAY. If chronic alcoholic d o not exceed 2 GM/DAY., 06/05/2016 10:13 PM CDT 2 tablets HYDROcodone-acetaminophen (NORCO) 5-325 Given mg per tablet 2 tablet 2 tablet, Oral, Once, Wed06/05/16 at 2210, For 1 dose documented in this encounter
--- OUTSIDE RECORDS SUMMARY | 2019-11-28 22:36 | XMS REPORT | Encounter Summary ---
Author Author [facility] Organization [facility] Address Unknown Phone Unavailable Care Team Providers Care Yacht Master Name Role Phone Ebony Sharp MD PCP Encounter Details Care Team Description Date Type Department Ebony Sharp MD [address] [facility] [address] [place] [address] [phone] 06/03/2016 Documentation [facility] [place] [address] [facility] [address] [place], [place] [id number] Social History Date Tobacco Use Types Packs/Day [...] Description [place] [address] [place] [address] [phone] 02/29/2020 Office Visit Urology documented as of this encounter Visit Diagnoses Not on filedocumented in this encounter
--- OUTSIDE RECORDS SUMMARY | 2019-11-28 22:36 | XMS REPORT | Encounter Summary ---
Author Author [facility] Organization [facility] Address Unknown Phone Unavailable Care Team Providers Care Hospice Music Therapist Name Role Phone Ebony Sharp MD PCP Reason for Visit * Reason Comments Follow-up TIM lt ankle [id number] cmlT VX: Appt. Reminder (05/22/2016 06:51 PM) Phone Call - Message Delivered (X=Answering [place]) Encounter Details Care Team Description Date Type Department Adelaida Olivas MD [address] [facility] [address] [place] [address] [phone] 05/26/2016 Hist[facility]Appointmen [facility] [address] [facility] [address] [place] [address] Social History Date Tobacco Use Types Packs/Day [...] Description Date [place] [address] [place] [address] [phone] 02/29/2020 Office Visit Urology documented as of this encounter Visit Diagnoses Not on filedocumented in this encounter Additional Health Concerns Resolved Time Infection Noted Time 04/19/2018 12:13 PM CDT Influenza 08/30/2017 10:13 AM WEATHER REPORTER documented as of this encounter
--- OUTSIDE RECORDS SUMMARY | 2019-11-28 22:36 | XMS REPORT | Encounter Summary ---
Author Author [facility] Organization [facility] Address Unknown Phone Unavailable Care Team Providers Care Origination Specialist Name Role Phone Ebony Sharp MD PCP Reason for Visit * Reason Comments Other Encounter Details Care Team Description Date Type Department Ebony Sharp MD [address] [facility] [address] [place] [address] [phone] Other 06/20/2016 Refill [facility] (walk-in clinic) [address] [facility] [address] [place], [place] [id number] Social History Date Tobacco Use Types Packs/Day [...] Description Date [place] [address] [place] [address] [phone] 02/29/2020 Office Visit Urology documented as of this encounter Visit Diagnoses Not on filedocumented in this encounter
--- OUTSIDE RECORDS SUMMARY | 2019-11-28 22:36 | XMS REPORT | Encounter Summary ---
Author Author [facility] Organization [facility] Address Unknown Phone Unavailable Care Team Providers Care Sales Program Manager Name Role Phone Ebony Sharp MD PCP Encounter Details Care Team Description Date Type Department Ebony Sharp MD [address] [facility] [address] [place] [address] [phone] 06/03/2016 Documentation [facility] (walk-in clinic) [address] [facility] [address] [place], [place] [id number] Social History Date Tobacco Use [...] Description Date [place] [address] [place] [address] [phone] 02/29/2020 Office Visit Urology documented as of this encounter Visit Diagnoses Not on filedocumented in this encounter
--- OUTSIDE RECORDS SUMMARY | 2019-11-28 22:36 | XMS REPORT | Encounter Summary ---
Author Author [facility] Organization [facility] Address Unknown Phone Unavailable Care Team Providers Care Centrex Radio Operator Name Role Phone Ebony Sharp MD PCP Reason for Visit * Reason Comments Results PSG Results Encounter Details Care Team Description Date Type Department Medardo Radford MD [address] [place] [address] [phone] Results (PSG Results) 06/01/2016 Telephone [facility] [address] [facility] [address] [place] [address] Social History Date Tobacco Use Types Packs/Day [...] Telephone Encounter - Eleni Jauregui MA - 06/02/2016 4:47 PM CDT Patient called me back stating she already has her Auto CPAP with oxygen bleedin g into it. Patient stated she needs to make an appointment within 30 days of whe n she got her CPAP. Patient said she will call in the morning to make an appoint ment. * Telephone Encounter - Eleni Jauregui MA - 06/01/2016 3:15 PM CDT Called patient and left her a message stating I had the results of her split nig ht and what Dr. Radford recommended. I told her to call me back as soon as she co ulandrew. * Telephone Encounter - Eleni Jauregui MA - 06/01/2016 3:15 PM CDT ----- Message from Medardo Radford MD sent at 05/18/2016 11:23 AM CDT ----- Auto CPAP with AHI capability and heated humidity with heated tubing Pressure 5 -15 centimeter water Mask of patient choice, with tubing, and filters Length of need: 99 Additional comments: Patient would require accompanied oxygen at 2 L/m 2 weeks after therapy, patient needs continuous nocturnal pulse oximetry to ensu re normalization of oxygen saturation. Order was entered. Thanks for your assistance, MMV documented in this encounter Plan of Treatment Care Team Description Date [place] [address] [place] [address] [phone] 02/29/2020 Office Visit Urology documented as of this encounter Visit Diagnoses Not on filedocumented in this encounter
--- OUTSIDE RECORDS SUMMARY | 2019-11-28 22:36 | XMS REPORT | Encounter Summary ---
Author Author [facility] Organization [facility] Address Unknown Phone Unavailable Care Team Providers Care Media Marketing Director Name Role Phone Ebony Sharp MD PCP Reason for Visit * Reason Comments Urinary Tract Infection dysuria for 2 weeks, freque ncy COPD feels like she is haivng a flare, using inhaler more Encounter Details Care Team Description Date Type Department Alex Bautista NP [address] [address] [place] [address] [phone] Dysuria (Primary Dx); Urinary tract infection, site not specified; Wheezing 05/22/2016 Office Visit [facility] (walk-in clinic) [address] [facility] [address] [place] [address] Social History Date Tobacco Use [...] Signs Reading Time Taken Comments Vital Sign 124/86 05/22/2016 8:46 AM CDT Blood Pressure 70 05/22/2016 8:46 AM CDT Pulse 36.9 C (98.4 F) 05/22/2016 8:46 AM CDT Temperature - - Respiratory Rate 93% 05/22/2016 8:46 AM CDT Oxygen Saturation - - Inhaled Oxygen Concentration 105.7 kg (233 lb) 05/22/2016 8:46 AM CDT Weight - - Height 42.62 02/21/2016 1:09 PM CDT Body Mass Index documented in this encounter Patient Instructions * Patient Instructions* Alex Bautista NP - 05/22/2016 9:10 AM CDT If you feel like your current breathing treatments for COPD are not working, see k follow up care or go to the emergency room. Urinary Tract Infections in Women Urinary tract infections (UTIs) are most often caused by bacteria (germs). These bacteria enter the urinary tract. The bacteria may come from outside the body. Or they may travel from the skin outside therectum or vagina into the urethra. Female anatomy makes it easier for bacteria from the bowelto enter a womans urinary tract, which is the most common source of UTI. This means women develop UTIs more often than men. Pain in or around the urinary tract is a common UTI symptom. But the only way to know for sure if you have a UTI for the health care provider to test your urine. The two tests that may be done are the urinalysis and urine culture. Types of UTIs Cystitis: A bladder infection (cystitis) is the most common UTI in women. You may have urgent or frequent urination. You may also havepain, burning when you urinate, and bloody urine. Urethritis: This is an inflamed urethra, which is the tube that carries urine from the bladder to outside the body. You may have lower stomach or back pain. You may also have urgent or frequent urination. Pyelonephritis: This is a kidney infection. If not treated, it can be serious and damage your kidneys. In severe cases, you may be hospitalized. You may have a fever and lower back pain. Medications to treat a UTI Most UTIs are treated with antibiotics. These kill the bacteria. The length of t yarely you need to take them depends on the type of infection. It may be as short a s 3 days. If you have repeated UTIs, a low-dose antibiotic may be needed for sev eral months. Take antibiotics exactly as directed. Dont stop taking them unti l all of the medication is gone. If you stop taking the antibiotic too soon, the infection may not go away, and you may develop a resistance to the antibiotic. This can make it much harder to treat. Lifestyle changes to treat and prevent UTIs The lifestyle changes below will help get rid of your UTI. They may also help pr event future UTIs. Drink plenty of fluids. This includes water, juice, or other caffeine-free dr inks. Fluids help flush bacteria out of your body. Empty your bladder. Always empty your bladder when you feel the urge to urina te. And always urinate before going to sleep. Urine that stays in your bladder c an lead to infection. Try to urinate before and after sex as well. Practice good personal hygiene. Wipe yourself from front to back after using the toilet. This helps keep bacteria from getting into the urethra. Use condoms during sex. These help prevent UTIs caused by sexually transmitte d bacteria. Also, avoid using spermicides during sex. These can increase the ris k of UTIs. Choose other forms of control instead. For women who tend to ge t UTIs after sex, a low-dose of a preventive antibiotic may be used. Be sure to discuss this option with your health care provider. Follow up with your health care provider as directed. He or she may test to ken santamaria sure the infection has cleared. If necessary, additional treatment may be st arted. 5151-6312 [employer]. [address] [place] [address] 7. All rights reserved. This information is not intended as a substitute for pro fessional medical care. Always follow your healthcare professional's instruction s. documented in this encounter Progress Notes * Alex Bautista NP - 05/22/2016 8:40 AM CDT Patient ID: Caren Patten is a 65 y.o. female Subjective: Patient presents with Chief Complaint Patient presents with Urinary Tract Infection dysuria for 2 weeks, frequency COPD feels like she is haivng a flare, using inhaler more HPI Caren reports burning with urination, frequency, urgency, hesitancy and mild back pain for about 3 days. She also reports that she is using her albuterol in haler 2-3 times per day and feels that she has to put her oxygen on, for COPD, m ore during the day than normal. Problem List: Patient Active Problem List Diagnosis SNOMED CT(R) Type 2 diabetes mellitus without complication TYPE 2 DIABETES MELLITUS COPD (chronic obstructive pulmonary disease) CHRONIC OBSTRUCTIVE LUNG DISEAS E Hypertension HYPERTENSIVE DISORDER Hyperlipidemia HYPERLIPIDEMIA Chronic pain CHRONIC PAIN Elevated MCV MCV - RAISED MATA (generalized anxiety disorder) GENERALIZED ANXIETY DISORDER Hair loss ALOPECIA Acute chest pain ACUTE CHEST PAIN SASHA (obstructive sleep apnea) OBSTRUCTIVE SLEEP APNEA SYNDROME Iron deficiency IRON DEFICIENCY Goldberg-Ekbom syndrome RESTLESS LEGS Parasomnia PARASOMNIA Allergies: Allergies Allergen Reactions Lisinopril Anaphylaxis Metformin Sulfa (Sulfonamide Antibiotics) Medications: Outpatient Encounter Prescriptions as of 05/22/2016 Medication Sig Dispense Refill albuterol (PROAIR HFA) 90 mcg/actuation HFA inhaler Inhale 1 puff every 4 (f our) hours as needed for wheezing. 18 g 11 amitriptyline (ELAVIL) 25 MG tablet Take 1 tablet (25 mg total) by mouth nig htly. 90 tablet 3 amLODIPine (NORVASC) 2.5 MG tablet Take 1 tablet (2.5 mg total) by mouth jcarlos ly. Take one daily. 90 tablet 3 citalopram (CELEXA) 20 MG tablet Take 1 [...] this medica tion. 20 tablet 0 insulin glargine (LANTUS) 100 unit/mL injection Inject 15 Units under the sk in nightly. 13.5 mL 3 insulin syringe-needle U-100 0.3 mL 31 x 5/16" Syrg Type 2 diabetes E11.9 10 0 each 0 ipratropium-albuterol (DUO-NEB) 0.5-3 mg/3 mL nebulizer Inhale 3 mL 4 (four) times a day. 360 mL 11 LANTUS 100 unit/mL injection INJECT 15 UNITS UNDER THE SKIN EVERY EVENING 10 mL 0 metoprolol tartrate (LOPRESSOR) 100 MG tablet Take 1 tablet (100 mg total) b y mouth 2 (two) times a day. 180 tablet 3 OXYGEN THERAPY as needed. simvastatin (ZOCOR) 20 MG tablet Take 1 tablet (20 mg total) by mouth nightl y. 90 tablet 3 aspirin 81 MG EC tablet Take 81 mg by mouth daily. famotidine (PEPCID) 20 MG tablet Take one tablet (20 mg total) by mouth 2 (t wo) times a day. 180 tablet 1 lidocaine (XYLOCAINE) 5 % ointment AFMILIA EXT AA 1 TO 4 XD PRN 0 nitrofurantoin, macrocrystal-monohydrate, (MACROBID) 100 MG capsule Take 1 c apsule (100 mg total) by mouth 2 (two) times a day. Take one capsule by mouth tw ice daily. 14 capsule 0 omeprazole (PRILOSEC) 20 MG capsule predniSONE (DELTASONE) 20 MG tablet Take 1 tablet (20 mg total) by mouth jcarlos ly. 5 tablet 0 [DISCONTINUED] simvastatin (ZOCOR) 20 MG tablet TAKE 1 TABLET BY MOUTH NIGHT LY 90 tablet 0 No facility-administered encounter medications on file as of 05/22/2016. History: Past Medical History Diagnosis Date Arthritis COPD (chronic obstructive pulmonary disease) Diabetes mellitus Hyperlipidemia Hypertension Past Surgical History Procedure Laterality Date section, classic Cholecystectomy Hysterectomy Family History Problem Relation Age of Onset [...] Concern Not on file Social History Narrative Review of Systems In addition to that mentioned in HPI, positive for fatigue, na leo congestion, cough. Negative for fever, chills, and sweats. Objective: Visit Vitals BP 124/86 Pulse 70 Temp 36.9 C (98.4 F) Wt 105.7 kg (233 lb) SpO2 93% BMI 42.62 kg/m2 Physical Exam Negative for CVA or abdominal tenderness. Positive for wheezing an d decreased air sounds throughout lungs. Assessment/Plan: Diagnoses and all orders for this visit: Dysuria - POCT urinalysis dipstick - Culture, Urine; Future Urinary tract infection, site not specified - nitrofurantoin, macrocrystal-monohydrate, (MACROBID) 100 MG capsule; Take 1 capsule (100 mg total) by mouth 2 (two) times a day. Take one capsule by mouth twice daily. Wheezing - predniSONE (DELTASONE) 20 MG tablet; Take 1 tablet (20 mg total) by mouth daily. I instructed Caren to monitor her blood sugars closely while taking prednisone a nd report to her PCP if they are out of control. If your symptoms worsen at any time, or if you do not experience improvement wit hin a week please follow up with your primary care provider or go to the emergen cy room. APPEARANCE, URINE Date/Time Value Ref Range Status 05/22/2016 08:59 AM yellow.cl cloudy Colorless/Yellow/Dark Yellow Final GLUCOSE URINE Date/Time Value Ref Range Status 05/22/2016 08:59 AM Negative Negative mg/dL Final 09/24/2015 11:46 AM Negative Negative mg/dL Final BILIRUBIN URINE Date/Time Value Ref Range Status 05/22/2016 08:59 AM Small (A) Negative Final 09/24/2015 11:46 AM Negative Negative Final KETONES URINE Date/Time Value Ref Range Status 05/22/2016 08:59 AM Negative Negative Final SPECIFIC GRAVITY, UA Date/Time Value Ref Range Status 05/22/2016 08:59 AM 1.030 1.001 - 1.030 Final Comment: >= HEMOGLOBIN URINE Date/Time Value Ref Range Status 05/22/2016 08:59 AM Moderate (A) Negative Final PROTEIN URINE QUAL Date/Time Value Ref Range Status 05/22/2016 08:59 AM 100 (A) Negative Final LEUKOCYTE ESTERASE Date/Time Value Ref Range Status 05/22/2016 08:59 AM Large (A) Negative Final 09/24/2015 11:46 AM Positive (A) Negative Final NITRITE URINE Date/Time Value Ref Range Status 05/22/2016 08:59 AM Positive (A) Negative Final PH URINE Date/Time Value Ref Range Status 05/22/2016 08:59 AM 5.5 5.0 - 8.0 Final No results found for: RAPFLUA No results found for: RAPFLUB No results found for: RAPSCRN APPEARANCE, URINE Date/Time Value Ref Range Status 05/22/2016 08:59 AM yellow.cl cloudy Colorless/Yellow/Dark Yellow Final documented in this encounter Plan of Treatment Care Team Description Date [place] [address] [place] [address] [phone] 02/29/2020 Office Visit Urology documented as of this encounter Procedures Comments Procedure Name Priority Date/Time Associated Diag nosis POCT URINALYSIS DIPSTICK Routine 05/22/2016 Dysur ia 8:59 AM CDT documented in this encounter Results * Culture, Urine (05/22/2016 11:49 AM CDT) Pathologist [facility] Isolate 1 >100,000 Cfu/ml (A) [facility] Isolate 1 Escherichia coli (A) [facility] Specimen Urine Antibiotic Method Susceptibility Organism AMPICILLIN 4: Sensitive Escherichia coli CEFAZOLIN. <=4: Sensitive Escherichia coli CEFTRIAXONE <=1: Sensitive Escherichia coli CEFEPIME <=1: Sensitive Escherichia coli MEROPENEM <=0.25: Sensitive Escherichia coli GENTAMICIN <=1: Sensitive Escherichia coli CIPROFLOXACIN. <=0.25: Sensitive Escherichia coli NITROFURANTOIN <=16: Sensitive Escherichia coli SEPTRA/BACTRIM <=20: Sensitive Escherichia coli Performing Organization Address City/State/Zipcode Ph one Number [facility] [address] [place] [phone] LABORATORIES * POCT urinalysis dipstick (05/22/2016 8:59 AM CDT) Appearance, yellow.cl cloudy Colorless/Yellow/Da r Urine k Yellow Glucose Urine Negative Negative mg/dL Bilirubin Urine Small (A) Negative Ketones Urine Negative Negative Specific 1.030Comment: >= 1.001 - 1.030 [place], UA Hemoglobin Moderate (A) Negative Urine PH Urine 5.5 5.0 - 8.0 Protein Urine 100 (A) Negative Qual Urobilinogen Negative Negative EU/dL Urine Nitrite Urine Positive (A) Negative Leukocyte Large (A) Negative Esterase Specimen Urine documented in this encounter Visit Diagnoses Diagnosis Dysuria Urinary tract infection, site not speci fied Wheezing documented in this encounter
--- OUTSIDE RECORDS SUMMARY | 2019-11-28 22:36 | XMS REPORT | Encounter Summary ---
Author Author [facility] Organization [facility] Address Unknown Phone Unavailable Care Team Providers Care Sql Developer Name Role Phone Ebony Sharp MD PCP Encounter Details Care Team Description Date Type Department Ebony Sharp MD [address] [facility] [address] [place] [address] [phone] 05/26/2016 Documentation [facility] (walk-in clinic) [address] [facility] [address] [place], [place] [id number] Social History Date Tobacco Use Types Packs/Day [...] Description Date [place] [address] [place] [address] [phone] 02/29/2020 Office Visit Urology documented as of this encounter Visit Diagnoses Not on filedocumented in this encounter
--- OUTSIDE RECORDS SUMMARY | 2019-11-28 22:36 | XMS REPORT | Encounter Summary ---
Author Author [facility] Organization [facility] Address Unknown Phone Unavailable Care Team Providers Care Indigo Vat Tender Cloth Name Role Phone Ebony Sharp MD PCP Encounter Details Care Team Description Date Type Department Medardo Radford MD [address] [place] [address] [phone] SASHA (obstructive sleep apnea) (Primary D x) 05/18/2016 Orders Only [facility] [address] [place] [address] Social History Date Tobacco Use Types Packs/Day [...] Description Date [place] [address] [place] [address] [phone] 02/29/2020 Office Visit Urology documented as of this encounter Visit Diagnoses Diagnosis SASHA (obstructive sleep apnea) Obstructive sleep apnea (adult) (pediat amita) documented in this encounter
--- OUTSIDE RECORDS SUMMARY | 2019-11-28 22:36 | XMS REPORT | Encounter Summary ---
Author Author [facility] Organization [facility] Address Unknown Phone Unavailable Care Team Providers Care Social Work Case Manager Name Role Phone Ebony Sharp MD PCP Encounter Details Care Team Description Date Type Department Alex Bautista, KADEN [address] [facility] [address] [place] [address] [phone] Dysuria 05/22/2016 Lab [facility] [place] [address] [facility] [address] [place] [address] Social History Date Tobacco Use Types Packs/Day [...] Description Date [place] [address] [place] [address] [phone] 02/29/2020 Office Visit Urology documented as of this encounter Procedures Comments Procedure Name Priority Date/Time Associated Diag nosis CULTURE, URINE Routine 05/22/2016 Dysuria 11:49 AM CDT documented in this encounter Results * Culture, Urine (05/22/2016 11:49 AM CDT) Isolate 1 >100,000 Cfu/ml (A) [facility] Isolate 1 Escherichia coli (A) [facility] Specimen Urine Antibiotic Method Susceptibility Organism AMPICILLIN 4: Sensitive Escherichia coli CEFAZOLIN. <=4: Sensitive Escherichia coli CEFTRIAXONE <=1: Sensitive Escherichia coli CEFEPIME <=1: Sensitive Escherichia coli MEROPENEM <=0.25: Sensitive Escherichia coli GENTAMICIN <=1: Sensitive Escherichia coli CIPROFLOXACIN. <=0.25: Sensitive Escherichia coli NITROFURANTOIN <=16: Sensitive Escherichia coli SEPTRA/BACTRIM <=20: Sensitive Escherichia coli Performing Organization Address City/State/Zipcode Ph one Number [address] [address] LABORATORIES documented in this encounter Visit Diagnoses Diagnosis Dysuria documented in this encounter
--- OUTSIDE RECORDS SUMMARY | 2019-11-28 22:36 | XMS REPORT | Encounter Summary ---
Author Author [facility] Organization [facility] Address Unknown Phone Unavailable Care Team Providers Care Jboss Developer Name Role Phone Ebony Sharp MD PCP Encounter Details Care Team Description Date Type Department Adelaida Olivas MD [address] [facility] [address] [place], [place] [id number] 05/26/2016 Hist-Transcript Aide Orthopaedi c ion Encounter Specialists [address] [facility] [address] [place], [place] [id number] Social History Date Tobacco Use Types Packs/Day [...] encounter Progress Notes * Juarez Noble - 05/26/2016 2:36 PM CDT - History of Present Illness Presents today for evaluation of her lower extremity. Continues to have pain on her ankle joint. Has constant pain on her ankle. She is intetested in the fusion surgery. Family History Summary: No Known Family History - Entered On: 05/26/2016 Past Medical History High Blood Pressure Arthritis Osteoporosis COPD / Emphysema Diabetes Surgical History Surgical history includes Appendectomy Tonsillectomy Section(1) Gallbladder(laparoscopic) D & C(single) Hysterectomy(complete) Total Knee Replacement(bilateral) Arthroscopic Knee(bilateral). Risk Factors Tobacco Use: Former smoker Does [...] SIMVASTATIN 20 MG TABS (SIMVASTATIN) as directed Allergies: LISINOPRIL (LISINOPRIL) * METFORMIN SULFA (SULFADIAZINE) I have reviewed and concur with the histories collected on 05/26/2016. -Adelaida Olivas MD, May 26, 2016 2:12 PM Vital Signs Ht: 60 in. Wt: 224 lbs. T: 98.2 deg F. T site: tympanic BMI: 43.91 She was encourage to talk with her primary care provider about weight management . Examination Physical examination reveals a pleasant woman with tenderness to palpation throu ghout the course of her tibiotalar joint. Her skin is otherwise intact. She diggs s mild tenderness to palpation throughout the course of her subtalar joint. She is otherwise able to plantar flex and dorsiflex her foot without any specific c omplaints. Radiographs: X-ray examination was not performed today. Impression Tibiotalar symptoms with subtalar symptoms. Plan At this point, we did discuss tibiotalar fusion with gastrocnemius recession and subtalar debridement. I will see her back if this is the course she wishes to take. . of their left ankle. Orders from current office visit: PQRS 128a PQRS 317na PQRS 130 CQM68 PQRS 109 Diabetic pulse exam Diabetic sensory exam CBC w/o Differential PTT-Partial Thromboplastin Time Prothrombin Time (PT) INR Metabolic Panel Basic Arthrodesis of ankle open * documented in this encounter Plan of Treatment Care Team Description Date [place] [address] [place] [address] [phone] 02/29/2020 Office Visit Urology documented as of this encounter Visit Diagnoses Not on filedocumented in this encounter Additional Health Concerns Resolved Time Infection Noted Time 04/19/2018 12:13 PM CDT Influenza 08/30/2017 10:13 AM ER MANAGER 08/30/2019 1:09 PM ER MANAGER Influenza - Rule Out 08/30/2019 11:32 AM ER MANAGER 09/17/2019 8:17 AM ER MANAGER RSV 08/31/2019 6:35 PM ER MANAGER documented as of this encounter
--- OUTSIDE RECORDS SUMMARY | 2019-11-28 22:36 | XMS REPORT | Encounter Summary ---
Author Author [facility] Organization [facility] Address Unknown Phone Unavailable Care Team Providers Care Audio Visual Secretary Name Role Phone Ebony Sharp MD PCP Reason for Visit * Reason Comments Other Encounter Details Care Team Description Date Type Department Ebony Sharp MD [address] [facility] [address] [place] [address] [phone] Other 05/22/2016 Refill [facility] y [facility] (walk-in clinic) [address] [facility] [address] [place], [place] [address] Social History Date Tobacco Use Types Packs/Day [...] Description Date [place] [address] [place] [address] [phone] 02/29/2020 Office Visit Urology documented as of this encounter Visit Diagnoses Not on filedocumented in this encounter
--- OUTSIDE RECORDS SUMMARY | 2019-11-28 22:36 | XMS REPORT | Encounter Summary ---
Author Author [facility] Organization [facility] Address Unknown Phone Unavailable Care Team Providers Care Manager Sound Name Role Phone Ebony Sharp MD PCP Encounter Details Care Team Description Date Type Department Medardo Radford MD [address] [facility] [address] [place] [address] [phone] SASHA (obstructive sleep apnea) (Primary D x); Chronic obstructive pulmonary disease, unspecified COPD type (HCC); Type 2 diabetes mellitus without complication, with long-term current use of insulin ([facility]); Hair loss 05/22/2016 Office Visit [facility] [address] [facility] [address] [place], [place] [id number] Social History Date Tobacco Use Types Packs/Day [...] Signs Reading Time Taken Comments Vital Sign 143/90 05/22/2016 10:31 AM CDT Blood Pressure 71 05/22/2016 10:31 AM CDT Pulse - - Temperature 18 05/22/2016 10:31 AM CDT Respiratory Rate 94% 05/22/2016 10:31 AM CDT Oxygen Saturation - - Inhaled Oxygen Concentration 105.7 kg (233 lb) 05/22/2016 10:31 AM CDT Weight 157.5 cm (5' 2") 05/22/2016 10:31 AM CDT Height 42.62 05/22/2016 10:31 AM CDT Body Mass Index documented in this encounter Progress Notes * Medardo Radford MD - 05/22/2016 10:20 AM CDT OUTPATIENT SLEEP FOLLOW UP NOTE DATE: 05/22/2016 PATIENT NAME: Caren Patten : 1950 AGE: [...] INTERVAL HISTORY: Patient was last seen on 02/21/2016, with the following diagnos is: 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 PLMD index was 13 with 13% EEG arousal. No significant cardiac dysrhythmia was noted. Recommendation was to proceed with auto CPAP the rapy, with supplemental oxygen of 2 L/m. For RLS related symptoms, patient is o n gabapentin and tolerating it well. No additional concerns are voiced at this time. Allergies: Lisinopril; Metformin; and Sulfa (sulfonamide antibiotics) CURRENT ACTIVE MEDICATIONS: Medication List These changes are accurate as of: 05/22/16 10:20 AM. If you have any questions, ask your nurse or doctor. START taking these medications nitrofurantoin (macrocrystal-monohydrate) 100 MG capsule Commonly known as: MACROBID 100 mg, Oral, BID, Take one capsule by mouth twice daily. Started by: Alex Bautista NP predniSONE 20 MG tablet Commonly known as: DELTASONE 20 mg, Oral, Daily Started by: Alex Bautista NP CONTINUE taking these medications albuterol 90 mcg/actuation HFA inhaler Commonly known as: PROAIR HFA 1 puff, Inhalation, Q4H PRN amitriptyline 25 MG tablet Commonly known as: ELAVIL 25 mg, Oral, Nightly amLODIPine 2.5 MG tablet Commonly known as: NORVASC 2.5 mg, Oral, Daily, Take one daily. aspirin 81 MG EC tablet 81 mg, Oral, Daily citalopram 20 mg tablet Commonly known as: CeleXA 20 mg, Oral, Daily famotidine 20 MG tablet Commonly known as: PEPCID 20 mg, Oral, BID fluticasone-vilanterol 200-25 mcg/actuation INHALER Commonly known as: BREO ELLIPTA 1 puff, Inhalation, Daily gabapentin 300 MG capsule Commonly known as: NEURONTIN 300 mg, Oral, TID HYDROcodone-acetaminophen 5-325 mg per tablet Commonly known as: NORCO 1 tablet, Oral, Q6H PRN, Do not drive while taking this medication. * insulin glargine 100 unit/mL injection Commonly known as: LANTUS 15 Units, Subcutaneous, Nightly * LANTUS 100 unit/mL injection Generic drug: insulin glargine INJECT 15 UNITS UNDER THE SKIN EVERY EVENING insulin syringe-needle U-100 0.3 mL 31 gauge x 5/16 Syrg Type 2 diabetes E11.9 ipratropium-albuterol 0.5-3 mg/3 mL nebulizer Commonly known as: DUO-NEB 3 mL, Inhalation, 4x Daily lidocaine 5 % ointment Commonly known as: XYLOCAINE FAMILIA EXT AA 1 TO 4 XD PRN metoprolol tartrate 100 MG tablet Commonly known as: LOPRESSOR 100 mg, Oral, BID omeprazole 20 MG capsule Commonly known as: PriLOSEC No dose, route, or frequency recorded. OXYGEN THERAPY PRN simvastatin 20 MG tablet Commonly known as: ZOCOR 20 mg, Oral, Nightly * Notice: This list has 2 medication(s) that are the same as other medications prescribed for you. Read the directions carefully, and ask your doctor or other care provider to review them with you. Where to Get Your Medications These medications were sent to [id number] - [place], [place] - [address] [facility] [address] AT [facility] of [facility] [address] [place] [address], [facility] [phone] nitrofurantoin (macrocrystal-monohydrate) 100 MG capsule predniSONE 20 MG tablet PHYSICAL EXAM: Blood pressure 143/90, pulse 71, resp. rate 18, height 1.575 m (5' 2"), weight 1 05.7 kg (233 lb), SpO2 94 %. VITAL SIGNS: Visit Vitals BP 143/90 Pulse 71 Resp 18 Ht 1.575 m (5' 2") Wt 105.7 kg (233 lb) SpO2 94% BMI 42.62 kg/m2 Body mass index is 42.62 kg/(m^2). General Appearance: As noted below. Neurologic: Mental Status: Awake, alert and oriented x 3. Cranial Nerves: Normal. Motor: normal bulk and tone. Moving all 4 limbs. Sensroy: grossly intact to light touch. Coordination: No dystaxia on repetitive and rapid alternating movements. Reflexes symmetrical. Gait: Stable. LAB DATA: Chemistry Component Value Date/Time NA 142 12/31/2015 1459 K 3.9 12/31/2015 1459 CL 97 12/31/2015 1459 CO2 35 (H) 12/31/2015 1459 BUN 13 12/31/2015 1459 GLU 87 12/31/2015 1459 Component Value Date/Time CALCIUM 9.0 12/31/2015 1459 ALKPHOS 84 12/31/2015 1459 AST 26 12/31/2015 1459 ALT 16 12/31/2015 1459 Lab Results Component Value Date HGBA1C 6.6 [...] sleep apnea) OBSTRUCTIVE SLEEP APNEA SYNDROME Yes Chronic obstructive pulmonary disease, unspecified COPD type CHRONIC OBSTRUC TIVE LUNG DISEASE Type 2 diabetes mellitus without complication, with long-term current use of insulin TYPE 2 DIABETES MELLITUS WITHOUT COMPLICATION Hair loss ALOPECIA PLAN: I reviewed, and discussed the results of his prior sleep study. We discussed the morbidity and mortality of untreated sleep apnea, including hypertension, CA D, CVA, diabetes mellitus, cardiac dysrhythmia, neurocognitive dysfunction, and increased incidence of MVA. Potential aggravators such as weight gain, and exces sive alcohol consumption within 3-4 hours of bedtime was reviewed. Therapeutic options discussed including: CPAP, PROVENT, position training, OA T (oral appliance therapy), and weight loss. Auto CPAP will be set up at 5-15 cm water with heated humidifier, and supplie s, and accompanied 2 L/m of oxygen. 2 weeks after the initiation of therapy, bonnie neil would require continuous nocturnal pulse oximetry to ensure normoxia. Insurance guidelines regarding 70% CPAP use, with each use defined as no less than 4 hours per night, was reviewed with patient. Patient will be responsible for getting data compliance to our office for my review. If daytime hypersomnia persists, consider adjunct pharmacological treatment. After the initiation of therapy, if needed, patient will be followed up in [facility] to assess for symptom resolution, tolerance, and compliance. The basic principal of lifestyle and beavior modification was discussed with patient, which primarily consists of portion control with diet, and activity/exe rcise, as tolerated. Follow up is recommended within 3 months, or sooner if necessary. Patient is encouraged to contact the office regarding any additional concerns or questions. More [...] yamile beard is my own. . Pager: [phone]. documented in this encounter Plan of Treatment Care Team Description [place] [address] [address] [phone] 02/29/2020 Office Visit Urology documented as of this encounter Visit Diagnoses Diagnosis SASHA (obstructive sleep apnea) Obstructive sleep apnea (adult) (pediat amita) Chronic obstructive pulmonary disease, unspecified COPD type (HCC) Type 2 diabetes mellitus without compli cation, 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) Hair loss Unspecified alopecia documented in this encounter
--- OUTSIDE RECORDS SUMMARY | 2019-11-28 22:36 | XMS REPORT | Encounter Summary ---
Author Author [facility] Organization [facility] Address Unknown Phone Unavailable Care Team Providers Care Site Identification Specialist Name Role Phone Ebony Sharp MD PCP Encounter Details Care Team Description Date Type Department Medardo Radford MD [address] [facility] [address] [place] [address] [phone] 05/26/2016 Documentation [facility] [address] [facility] [address] [place] [address] Social History Date Tobacco Use Types Packs/Day [...] Description Date [place] [address] [place] [address] [phone] 02/29/2020 Office Visit Urology documented as of this encounter Visit Diagnoses Not on filedocumented in this encounter
--- OUTSIDE RECORDS SUMMARY | 2019-11-28 22:36 | XMS REPORT | Encounter Summary ---
Author Author [facility] Organization [facility] Address Unknown Phone Unavailable Care Team Providers Care News Producer Name Role Phone Ebony Sharp MD PCP Reason for Visit * Reason Comments Sleep Apnea Encounter Details Care Team Description Date Type Department Medardo Radford MD [address] [facility] [address] [place] [address] [phone] SASHA (obstructive sleep apnea) (Primary D x); Goldberg-Ekbom syndrome; Parasomnia 06/26/2016 Office Visit [facility] [address] [facility] [address] [place] [address] Social History Date Tobacco Use Types Packs/Day [...] Signs Reading Time Taken Comments Vital Sign 148/84 06/26/2016 1:29 PM CDT Blood Pressure 69 06/26/2016 1:29 PM CDT Pulse - - Temperature 16 06/26/2016 1:29 PM CDT Respiratory Rate 100% 06/26/2016 1:29 PM CDT Oxygen Saturation - - Inhaled Oxygen Concentration 107 kg (236 lb) 06/26/2016 1:29 PM CDT Weight 157.5 cm (5' 2") 06/26/2016 1:29 PM CDT Height 43.16 06/26/2016 1:29 PM CDT Body Mass Index documented in this encounter Progress Notes * Medardo Radford MD - 06/26/2016 1:40 PM CDT OUTPATIENT NEUROLOGY FOLLOW UP NOTE DATE: 06/26/2016 PATIENT NAME: Caren Patten : 1950 AGE: 65 y.o. SUBJECTIVE: I had the pleasure of seeing your patient Caren Patten, date of , today in neurological consultation. I have done a complete review of systems also in the electronic medical record.I have reviewed the Past, Social and Famil y histories on this patient, reviewed labs and images, and they have been docume nted in the electronic medical record. Caren was accompanied by her daughter, Maddy, who assisted with the history. 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 She is currently on auto CPAP 5-15 cm water. Clinical staff was unable to get a copy of most recent compliance data. Ernestina dent will bring CPAP machine to [place] next [place]. She would like to get cleared for gastric bypass surgery. Once I have reviewed compliance data, if sa tisfactory she will be cleared for surgery. Otherwise, she is not having much pr oblem with her legs, and he does not seem to be interfering with sleep initiatio n. She does not have any evidence of iron deficiency. No parasomnia type symptom s is reported since last clinic visit. Daytime hypersomnia is minimal with Epwor th score of 3. No additional concerns are voiced at this time. Allergies: Lisinopril; Metformin; and Sulfa (sulfonamide antibiotics) CURRENT ACTIVE MEDICATIONS: Medication List These changes are accurate as of: 06/26/16 1:22 PM. If you have any questions, ask [...] as: DUO-NEB 3 mL, Inhalation, 4x Daily * LANTUS 100 unit/mL injection Generic drug: insulin glargine INJECT 15 UNITS UNDER THE SKIN EVERY EVENING * LANTUS 100 unit/mL injection Generic drug: insulin glargine ADMINISTER 15 UNITS UNDER THE SKIN EVERY EVENING [...] care provider to review them with you. PHYSICAL EXAM: Blood pressure 148/84, pulse 69, resp. rate 16, height 1.575 m (5' 2"), weight 1 07 kg (236 lb), SpO2 100 %. VITAL SIGNS: Visit Vitals BP 148/84 (BP Location: Right arm, Patient Position: Sitting) Pulse 69 Resp 16 Ht 1.575 m (5' 2") Wt 107 kg (236 lb) SpO2 100% BMI 43.16 kg/m2 Body mass index is 43.16 kg/(m^2). General Appearance: As noted below. Neurologic: Mental Status: Awake, alert and oriented x 3, giving history withou t difficulty. Cranial Nerves: No dysarthria or dysphonia. No ptosis. Pupils round and reactiv e to light. Extraocular movements are intact without nystagmus. Field are full. Facial sensory and motor are intact. Hearing intact to conversation and finger rub. Palate rises midline and tongue protrudes midline and moves well. Motor: normal bulk and tone. Moving all 4 limbs. Sensroy: grossly intact to light touch. No corticosensory signs noted. Coordination: No dystaxia on repetitive and rapid alternating movements. Reflexes symmetrical, with mute plantar responses. Gait: Stable. LAB DATA: Chemistry Component Value Date/Time NA 140 06/05/20162135 K 3.9 06/05/20162135 CL 102 06/05/20162135 CO2 27 06/05/20162135 BUN 19 06/05/20162135 GLU 160 (H) 06/05/20162135 Component Value Date/Time CALCIUM 8.7 06/05/20162135 ALKPHOS 76 06/05/20162135 AST 32 06/05/20162135 ALT 33 06/05/20162135 Lab Results Component Value Date HGBA1C 6.6 [...] Yes Goldberg-Ekbom syndrome RESTLESS LEGS Parasomnia PARASOMNIA PLAN: We discussed the morbidity and mortality of untreated sleep apnea, including hypertension, CAD, CVA, diabetes mellitus, cardiac dysrhythmia, neurocognitive d ysfunction, and increased incidence of MVA. Potential aggravators such as weight gain, and excessive alcohol consumption within 3-4 hours of bedtime was reviewe d. Reported compliance with CPAP is excellent. I encouraged patient to continue with the current pattern of usage. Patient does not require any CPAP accessories at this time. If patient is adequately compliant with CPAP device, she will be cleared for weight loss surgery. Pharmacological treatment PLMD is warranted at this time The basic principal of lifestyle and beavior modification was discussed with patient, which primarily consists of portion control with diet, and activity/exe rcise, as tolerated. Follow up is recommended within 6 months, or sooner if necessary. Patient is encouraged to contact the office regarding any additional concerns or questions. More than 50% of this time, 30 minutes, was spent in evaluation, counselling, an d coordination of care. Please note that portions of this letter were generated using voice-recognition software. Please excuse any typographic or grammatical errors. [facility] Neurologist Attestation: I have personally interviewed and examined the patient. The note as edited abov chirag is my own. . Pager: [phone]. Compliance data was reviewed and shows 4 or more hour usage of 89% with averag e daily usage of 7 hours and 37 minutes with pressure ranging from 5-15 cm water with medium pressure of 9.2 cm water with fair amount of leakage and median AHI of 5.5. I have personally interviewed and examined the patient. The edited note above i s my own. . Pager: [phone]. ERY PLATE ASSEMBLER documented in this encounter Plan of Treatment Care Team Description [place] [address] [place] [address] [phone] 02/29/2020 Office Visit Urology documented as of this encounter Visit Diagnoses Diagnosis SASHA (obstructive sleep apnea) Obstructive sleep apnea (adult) (pediat amita) Goldberg-Ekbom syndrome Parasomnia Other dysfunctions of sleep stages or a rousal from sleep documented in this encounter
--- OUTSIDE RECORDS SUMMARY | 2019-11-28 22:37 | XMS REPORT | Encounter Summary ---
Author Author [facility] Organization [facility] Address Unknown Phone Unavailable Care Team Providers Care Software Developer Manager Name Role Phone Ebony Sharp MD PCP Reason for Visit * Reason Comments Follow-up recdk lft ankle mri at [facility] [id number] kmhTVX: Appt. Reminder (04/28/2016 07:21 PM) Phone Call - Responded "Yes" (Y=Answered - Yes) Encounter Details Care Team Description Date Type Department Mendy Carpenter PA-C [address] [address] [phone] 04/30/2016 Hist-Appointmen Aide Smithi hanny [facility] [address] [facility] [address] [place] [address] Social History Date Tobacco Use Types Packs/Day [...] Description Date [place] [address] [place] [address] [phone] 02/29/2020 Office Visit Urology documented as of this encounter Visit Diagnoses Not on filedocumented in this encounter Additional Health Concerns Resolved Time Infection Noted Time 04/19/2018 12:13 PM CDT Influenza 08/30/2017 10:13 AM LIFT ELECTRICIAN documented as of this encounter
--- OUTSIDE RECORDS SUMMARY | 2019-11-28 22:37 | XMS REPORT | Encounter Summary ---
Author Author [facility] Organization [facility] Address Unknown Phone Unavailable Care Team Providers Care Braille Typist Name Role Phone Ebony Sharp MD PCP Encounter Details Care Team Description Date Type Department Adelaida Olivas MD [address] [facility] [address] [place], [place] [id number] 04/30/2016 Hist-Transcript [facility] Orthopaedi c ion Encounter Specialists [address] [facility] [address] [place], [place] [id number] Social History Date Tobacco Use Types Packs/Day [...] encounter Progress Notes * Juarez Noble - 04/30/2016 5:54 PM CDT - History of Present Illness Presents today for evaluation of her lower extremity. Presents today to discuss her MRI. She still has pain on her ankle. Has trouble with range of motion. She states she fractured her left ankle in the past. Past Medical History High Blood Pressure Arthritis [...] and concur with the histories collected on 04/30/2016. -Adelaida Olivas MD, April 30, 2016 3:29 PM Vital Signs Ht: 60 in. Wt: 224 lbs. T: 97.4 deg F. T site: tympanic BMI: 43.91 She was encourage to talk with her primary care provider about weight management . Examination Physical examination reveals a pleasant 65-year-old woman with tenderness to pal pation throughout the anterior aspect of her medial joint line. Her skin is oth erwise intact. She is otherwise able to plantar flex and dorsiflex her foot wit hout any specific complaints. Radiographs: X-ray examination was not performed today. 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 Plan At this point, we will plan her to be weightbearing as tolerated. We did discus s ankle arthroscopy with ligament reconstruction and OCD debridement, if this is the course she wishes to take. .. No X-ray will be needed at that time of their left ankle. Orders from current office visit: PQRS 128a PQRS 317na PQRS 130na ARTHROSCOPY ANKLE walker * Signed by Adelaida Olivas MD on April 30, 2016 at 3:29 PM To whom it may concern: My patient: Caren Patten would significantly benefit from a knee walker due to th e inability to place weight on their legs as a result of either surgery or their injury status. I do believe that a knee walker is a medical necessity for the period of three months. Sincerely, I,Sharona Scott, am scribing for, and in the presence of, Dr. Adelaida Olivas MD . documented in this encounter Plan of Treatment Care Team Description [place] [address] [address] [phone] 02/29/2020 Office Visit Urology documented as of this encounter Visit Diagnoses Not on filedocumented in this encounter Additional Health Concerns Resolved Time Infection Noted Time 04/19/2018 12:13 PM CDT Influenza 08/30/2017 10:13 AM LENS ENGRAVER 08/30/2019 1:09 PM LENS ENGRAVER Influenza - Rule Out 08/30/2019 11:32 AM LENS ENGRAVER 09/17/2019 8:17 AM LENS ENGRAVER RSV 08/31/2019 6:35 PM LENS ENGRAVER documented as of this encounter
--- OUTSIDE RECORDS SUMMARY | 2019-11-28 22:37 | XMS REPORT | Encounter Summary ---
Author Author [facility] Organization [facility] Address Unknown Phone Unavailable Care Team Providers Care Packing Room Inspector Name Role Phone Ebony Sharp MD PCP Encounter Details Care Team Description Date Type Department Adelaida Olivas MD [address] [facility] [address] [place] [address] 05/06/2016 Hist-Telephone [facility] [address] [facility] [address] [place], [place] [id number] Social History Date Tobacco Use Types Packs/Day [...] Clinic Note - Adelaida Olivas MD - 05/06/2016 4:22 PM CDT Phone Note Call from Patient Summary of call: Patient is wanting to cancel surgery. She scheduled an appointm ent to come back in on 05/26/[address] Olivas about this. Please call patient back at [phone]. Call taken by: Trina Rhodes on May 06, 2016 4:24 PM Follow-up for Phone Call Follow-up Details: Placed a call to the patient letting her know I have canceled her surgey. Follow-up by: Yuki Londono on May 07, 2016 8:52 AM documented in this encounter Plan of Treatment Care Team Description Date [place] [address] [place] [address] [phone] 02/29/2020 Office Visit Urology documented as of this encounter Visit Diagnoses Not on filedocumented in this encounter Additional Health Concerns Resolved Time Infection Noted Time 04/19/2018 12:13 PM CDT Influenza 08/30/2017 10:13 AM LICENSING OFFICER 08/30/2019 1:09 PM LICENSING OFFICER Influenza - Rule Out 08/30/2019 11:32 AM LICENSING OFFICER 09/17/2019 8:17 AM LICENSING OFFICER RSV 08/31/2019 6:35 PM LICENSING OFFICER documented as of this encounter
--- OUTSIDE RECORDS SUMMARY | 2019-11-28 22:37 | XMS REPORT | Encounter Summary ---
Author Author [facility] Organization [facility] Address Unknown Phone Unavailable Care Team Providers Care Deputy Chief Magistrate Name Role Phone Ebony Sharp MD PCP Reason for Referral * Diagnostic Imaging (Routine) Referred By Contact Referred To Contact Status Reason Specialty Diagnoses / Procedures Ebony Sharp MD [address] [facility] [address] [place] [address] [facility] Nuc Med [address] [place] [address] Closed Cardiology Diagnoses Acute chest pain P rocedures CV MPI 2 Day SPECT Study CV MPI SPECT Pharmacologic Reason for Visit * Diagnostic Imaging (Routine) Referred By Contact Referred To Contact Status Reason Specialty Diagnoses / Procedures Ebony Sharp MD [address] [facility] [address] [place] [address] [facility] C[facility] Nuc Med [address] [place] [address] Closed Cardiology Diagnoses Acute chest pain P rocedures CV MPI 2 Day SPECT Study CV MPI SPECT Pharmacologic Encounter Details Care Team Description Date Type Department Eboyn Sharp MD [address] [facility] [address] [place] [address] [phone] Acute [facility] [address] [place] [address] Social History Date Tobacco Use Types Packs/Day [...] injection UNITS UNDER THE SKIN EVERY EVENING 04/23/2016 05/22/2016 lidocaine (XYLOCAINE) 5 % FAMILIA EXT AA 1 0 ointment TO 4 XD PRN 02/14/2016 03/29/2017 metoprolol tartrate Take 1 tablet 180 tablet 3 (LOPRESSOR) 100 MG tablet (100 mg total) by mouth 2 (two) times a day. 02/14/2016 04/08/2017 simvastatin (ZOCOR) 20 MG Take 1 tablet 90 tablet 3 tablet (20 mg total) by mouth nightly. 03/23/2016 05/22/2016 simvastatin (ZOCOR) 20 MG TAKE 1 TABLET 90 tablet 0 tablet BY MOUTH NIGHTLY documented as of this encounter Plan of Treatment Care Team Description Date [place] [address] [place] [address] [phone] 02/29/2020 Office Visit Urology documented as of this encounter Procedures Comments Procedure Name Priority Date/Time Associated Diag nosis EKG OUTSIDE RECORD 05/12/2016 8:31 PM CDT CV MPI PHARMACOLOGIC Routine 05/08/[address] pain SPECT STRESS ONLY 11:28 AM CDT documented in this encounter Results * EKG OUTSIDE RECORD (05/12/2016 8:31 PM CDT) Narrative Performed At This result has an attachment that is n ot available. Ordered by an unspecified provider. * CV MPI 2 Day SPECT Study (05/08/2016 11:28 AM CDT) Specimen Narrative Performed At [facility] NAME: ISIAH BENÍTEZ : [id number] AGE: 65 GENDER: F ACCOUNT NUM: [id number] TEST: REGADENOSON SESTAMIBI STRESS ON LY SPECT SCINTIGRAPHIC REPORT TEST DATE: TEST LOCATION: L REFERRING PHYSICIAN: Ebony Sharp MD SUPERVISING PHYSICIAN: Luca Lee MD MEDICATIONS MEDS LAST 24 HOURS: Pepcid, Breo Elliip ta, Lopressor, Neurontin, ASA, Argyle, Norvasc, Celexa MEDS HELD LAST 24 HOURS: Elavil, Insuli n, Zocor, Lantus, Duoneb, Proair, Accuneb ALLERGIES: lisinopril, metformin, sulfa HOURS SINCE LAST CAFFEINE: 24 INDICATIONS FOR TEST: Hyperlipidemia, H ypertension, Diabetes, Atypical Angina REASON FOR PHARMACOLOGIC STRESS: Limiti ng Symptoms PROCEDURAL NOTE: After a four-hour fast , an intravenous line was inserted and an infusion of normal saline was started. The patient received a total of 0.4mg regadenoson injected over 10 seconds at a dosage of 0.08mg/ml immediately followed by a 5ml normal saline flush. Within 20 second s, 29.3 mCi of Tc-99m sestamibi was injected intravenously. One hour late r, 180 degree arc gated tomographic imaging was begun in the supine positio n. CLINICAL RESPONSE: The heart rate at rest was 80 beats per minute. After the regadenoson injection the heart rate wa s 106 beats per minute. The blood pressure at baseline was 145/90 mmHg . At the end of the regadenoson injection it was 149/86 mmHg. The patient experienced the fol lowing symptoms during the test: shortness of breath, chest discomfort. RAMAN TREADMILL SCORE: N/A ECG Findings: The resting EKG showed sinus rhythm at a rate of 80 beats per minute. With Regadenoson infusion, th ere were no significant ST segment changes or arrhythmias. SCINTIGRAPHIC Findings: The tomograph ic images demonstrate a normal myocardial perfusion pattern with stress. The ga lexis tomograms show a post stress EF of 81%. IN SUMMARY, the clinical, electrocardio graphic, and scintigraphic findings in this 65-year-old female being evaluated for possible CAD using regadenoson are as follows: 1. Clinical response: Non-Diagnostic (Regadenoson) 2. Electrocardiographic response: Non-I schemic 3. Scintigraphic response: Non-Ischemic COMBINED TEST RESULTS: Normal myocardial perfusion without isc hemia or infarction. Post stress EF of 81%. No prior study available for comparison . The coronary artery calcium score perfo rmed today showed an Agatston score of 0. Luca Lee MD [address] [facility], [address] [place] [address] DICTATED DATE: 2016-05-08 14:03:00.0 PAYMENT SPECIALIST DATETIME: 2016-05-08 14:1 5:36.0 ACTUAL TEST TIME: PROVIDER APPROVAL DATETIME: 2016-05-08 14:51:58.0 Procedure Note Interface, External Ris In - 05/08/2016 4:25 PM CDT NAME: ISIAH BENÍTEZ : [id number] AGE: 65 GENDER: F ACCOUNT NUM: [id number] TEST: REGADENOSON SESTAMIBI STRESS ONLY SPECT SCINTIGRAPHIC REPORT TEST DATE: TEST LOCATION: REFERRING PHYSICIAN: Ebony Sharp MD SUPERVISING PHYSICIAN: Luca Lee MD MEDICATIONS MEDS LAST 24 HOURS: Pepcid, Breo Elliipta, Lopressor, Neurontin, ASA, Argyle, Norvasc, Celexa MEDS HELD LAST 24 HOURS: Elavil, Insulin, Zocor, Lantus, Duoneb, Proair, Accuneb ALLERGIES: lisinopril, metformin, sulfa HOURS SINCE LAST CAFFEINE: 24 INDICATIONS FOR TEST: Hyperlipidemia, Hypertension, Diabetes, Atypical Angina REASON FOR PHARMACOLOGIC STRESS: Limiting Symptoms PROCEDURAL NOTE: After a four-hour fast, an intravenous line was inserted and an infusion of normal saline was started. The patient received a total of 0.4mg regadenoson injected over 10 seconds at a dosage of 0.08mg/ml immediately followed by a 5ml normal saline flush. Within 20 seconds, 29.3 mCi of Tc-99m sestamibi was injected intravenously. One hour later, 180 degree arc gated tomographic imaging was begun in the supine position. CLINICAL RESPONSE: The heart rate at rest was 80 beats per minute. After the regadenoson injection the heart rate was 106 beats per minute. The blood pressure at baseline was 145/90 mmHg. At the end of the regadenoson injection it was 149/86 mmHg. The patient experienced the following symptoms during the test: shortness of breath, chest discomfort. RAMAN TREADMILL SCORE: N/A ECG Findings: The resting EKG showed sinus rhythm at a rate of 80 beats per minute. With Regadenoson infusion, there were no significant ST segment changes or arrhythmias. SCINTIGRAPHIC Findings: The tomographic images demonstrate a normal myocardial perfusion pattern with stress. The gated tomograms show a post stress EF of 81%. IN SUMMARY, the clinical, electrocardiographic, and scintigraphic findings in this 65-year-old female being evaluated for possible CAD using regadenoson are as follows: 1. Clinical response: Non-Diagnostic (R egadenoson) 2. Electrocardiographic response: Non-Is chemic 3. Scintigraphic response: Non-Ischemic COMBINED TEST RESULTS: Normal myocardial perfusion without ischemia or infarction. Post stress EF of 81%. No prior study available for comparison. The coronary artery calcium score performed today showed an Agatston score of 0. Luca Lee MD [address] [facility], [address] [place] [address] DICTATED DATE: 2016-05-08 14:03:00.0 PAYMENT SPECIALIST DATETIME: 2016-05-08 14:15:36.0 ACTUAL TEST TIME: PROVIDER APPROVAL DATETIME: 2016-05-08 14:51:58.0 Performing Organization Address [facility] Ph one Number [email or web address] documented in this encounter Visit Diagnoses Diagnosis Acute chest pain Unspecified chest pain documented in this encounter Administered Medications Action Date Dose Rate Site Medication Order MAR Action 05/08/2016 10:15 AM CDT 0.4 mg regadenoson (LEXISCAN) syringe 0.4 mg Given 0.4 mg, Intravenous, Once, 05/08/16 at 1015, For 1 dose, Imaging, Administe r of 10 seconds, followed by 5 mL normal saline flush, documented in this encounter
--- OUTSIDE RECORDS SUMMARY | 2019-11-28 22:37 | XMS REPORT | Encounter Summary ---
Author Author [facility] Organization [facility] Address Unknown Phone Unavailable Care Team Providers Care Caddie Name Role Phone Ebony Sharp MD PCP Reason for Referral * Diagnostic Imaging (Routine) Referred By Contact Referred To Contact Status Reason Specialty Diagnoses / Procedures Ebony Sharp MD [address] [facility] [address] [place] [address] [facility] [address] [place] [address] Closed Cardiology Diagnoses Essential hypertension P rocedures Echo Complete with Doppler and Color Flow Encounter Details Care Team Description Date Type Department Ebony Sharp MD [address] [facility] [address] [place] [address] [phone] Essential hypertension 05/08/2016 [facility] al Encounter [address] [place], [place] [id number] Social History Date Tobacco Use Types Packs/Day [...] Description Date [place] [address] [place] [address] [phone] 02/29/2020 Office Visit Urology documented as of this encounter Procedures Comments Procedure Name Priority Date/Time Associated Diag nosis ECHO COMPLETE W DOPPLER Routine 05/08/2016 Essent ial hypertension AND COLOR FLOW 8:15 AM CDT documented in this encounter Results * Echo Complete with Doppler and Color Flow (05/08/2016 8:15 AM CDT) Ejection 60 % [facility] Fraction Specimen Impressions Performed At 1. Normal left ventricular systolic function, wit h an estimated ejection [facility] fraction of 60%. 2. No significant valvular abnormal ities. 3. Estimated central venous and jolie n left atrial pressures are normal. No previous study available for kunal rison. Amelie Rosa M.D. (Electronically Signed) Final Date: 08 May 2016 11 :13 Narrative Performed At [facility] ECHOCARDIOGRAM REPORT [facility] Name: ISIAH BENÍTEZ Date: 05/08/2016 07:34 Chart #: [id number] : 1950 Location: [facility] OP Sono: hannah Age: 65 Gender: F Referring: EBONY SHARP MD Room #: OP Fellow: Indication:Essential (primary) hypert ension Procedure: [id number] Complete Echo 2D/Col orflow/Doppler BP: 140 / 86 HR: 78 Ht: 62 Wt: 230 BSA 2.1 2D ECHO MEASUREMENTS LV Diastolic Diameter Bas 4.6 cm 3.6-5.4 LVPW Diastolic Thickness 1 cm 0.6-1.1 LV Systolic Diameter Base 3.1 cm 2.3-4.0 Aorta at Sinuses Diameter 2.7 cm 2.1-3.5 LA Systolic Diameter LX 4.7 cm 2.3-3.8 Ascending Aorta Diameter 3.4 cm 2.1-3.4 IVS Diastolic Thickness 1 cm 0.6-1.1 WALL SEGMENT ANALYSIS: ROUTINE LVSI : 1 %FM : 100 LAD : 1 LCX : 1 RCA : 1 FINDINGS LV Ejection Fraction: 60 Unable to obtain IV access for contra st. Normal left ventricular systolic func tion, with an estimated ejection fraction of 60%. Normal wall thickness. Normal wall motion. Normal left ventricular dimensions. Normal right ventricular size and sys tolic function. Normal right and left atrial size. LA volume index= 31 ml/m2. Mild diastolic dysfunction - normal L A pressure with mild abnormality in LV relaxation. Normal aortic valve without regurgita tion. Normal mitral valve with trivial regu rgitation. Normal pulmonic valve without regurgi tation. Normal tricuspid valve without regurg itation. Unable to accurately estimate pulmonary artery pressure. No pericardial effusion. IVC is responsive to inspiration dara cating normal RA pressure. Normal ascending aorta. No obvious intracardiac masses or thr ombi. Procedure Note Interface, External Ris In - 05/08/2016 11:14 AM CDT ECHOCARDIOGRAM REPORT [facility] Name: ISIAH BENÍTEZ Date: 05/08/2016 07:34 Chart #: [id number] : 1950 Location: [facility] OP Sono: jlblanca Age: 65 Gender: F Referring: EBONY SHARP MD Room #: OP Fellow: Indication:Essential (primary) hypertension Procedure: [id number] Complete Echo 2D/Colorflow/Doppler BP: 140 / 86 HR: 78 Ht: 62 Wt: 230 BSA 2.1 2D ECHO MEASUREMENTS LV Diastolic Diameter Bas 4.6 cm 3.6-5.4 LVPW Diastolic Thickness 1 cm 0.6-1.1 LV Systolic Diameter Base 3.1 cm 2.3-4.0 Aorta at Sinuses Diameter 2.7 cm 2.1-3.5 LA Systolic Diameter LX 4.7 cm 2.3-3.8 Ascending Aorta Diameter 3.4 cm 2.1-3.4 IVS Diastolic Thickness 1 cm 0.6-1.1 WALL SEGMENT ANALYSIS: ROUTINE LVSI : 1 %FM : 100 LAD : 1 LCX : 1 RCA : 1 FINDINGS LV Ejection Fraction: 60 Unable to obtain IV access for contrast. Normal left ventricular systolic function, with an estimated ejection fraction of 60%. Normal wall thickness. Normal wall motion. Normal left ventricular dimensions. Normal right ventricular size and systolic function. Normal right and left atrial size. LA volume index= 31 ml/m2. Mild diastolic dysfunction - normal LA pressure with mild abnormality in LV relaxation. Normal aortic valve without regurgitation. Normal mitral valve with trivial regurgitation. Normal pulmonic valve without regurgitation. Normal tricuspid valve without regurgitation. Unable to accurately estimate pulmonary artery pressure. No pericardial effusion. IVC is responsive to inspiration indicating normal RA pressure. Normal ascending aorta. No obvious intracardiac masses or thrombi. IMPRESSION 1. Normal left ventricular systolic function, with an estimated ejection fraction of 60%. 2. No significant valvular abnormalities. 3. Estimated central venous and mean left atrial pressures are normal. No previous study available for comparison. Amelie Rosa M.D. (Electronically Signed) Final Date: 08 May 2016 11:13 Performing Organization Address City/State/Zipcode Ph one Number [facility] documented in this encounter Visit Diagnoses Diagnosis Essential hypertension Unspecified essential hypertension documented in this encounter
--- OUTSIDE RECORDS SUMMARY | 2019-11-28 22:37 | XMS REPORT | Encounter Summary ---
Author Author [facility] Organization [facility] Address Unknown Phone Unavailable Care Team Providers Care Med Admin Name Role Phone Ebony Sharp MD PCP Reason for Referral * MRI/CAT/PET Scan (Routine) Referred By Contact Referred To Contact Status Reason Specialty Diagnoses / Procedures Ebony Sharp MD [address] [facility] [address] [place] [address] Closed Diagnoses Acute chest pain P rocedures CV CT Calcium Scoring Reason for Visit * MRI/CAT/PET Scan (Routine) Referred By Contact Referred To Contact Status Reason Specialty Diagnoses / Procedures Ebony Sharp MD [address] [facility] [address] [place] [address] Closed Diagnoses Acute chest pain P rocedures CV CT Calcium Scoring Encounter Details Care Team Description Date Type Department Ebony Sharp MD [address] [facility] [address] [place], [place] [id number] Acute [facility] [address] [place] [address] [phone] OPTION 2 Social History Date Tobacco Use Types Packs/Day [...] Description Date [place] [address] [place] [address] [phone] 02/29/2020 Office Visit Urology documented as of this encounter Procedures Comments Procedure Name Priority Date/Time Associated Diag nosis CV CT CALCIUM SCORING Routine 05/08/2016 Acute ch est pain 11:27 AM CDT documented in this encounter Results * CV CT Calcium Scoring (05/08/2016 11:27 AM CDT) Specimen Narrative Performed At [facility] NAME: ISIAH BENÍTEZ : [id number] GENDER: f ACCOUNT NUM: [id number] TEST: Coronary Calcium Score TEST DATE: TEST LOCATION: [facility] INPATIENT: INDICATION FOR TEST: None SYMPTOMS: None PROTOCOL: High-resolution, ECG-synchr onized Computed Tomography (CT) of the heart and coronary arteries was perform ed using a Multi-Detector Computed Tomography (MDCT). Each slice acquire d was 3 mm thick using a 3 mm slice to slice step. The average heart rate of the patient was 95 bpm an d varied over a range of 3 bpm. There were no image artifacts.. REPORT: Based on the size and density of the calcium deposits in each artery, a calcium score was computed using Litehouse volumetric cardiac scoring software. Such deposits are markers for underly ing coronary atherosclerosis. The coronary artery calcium score enables a person to kunal re his or her level of coronary calcification to levels found in health y individuals of the same age and gender. The score is an indicator of the like lihood for significant coronary artery obstruction and the risk of a subsequent cardiac event. Coronary Artery: Left Main, # of Lesion s: 0, Volume Score: 0, Mass Score: 0, Agatston Score: 0 Coronary Artery: LAD, # of Lesions: 0, Volume Score: 0, Mass Score: 0, Agatston Score: 0 Coronary Artery: LCX, # of Lesions: 0, Volume Score: 0, Mass Score: 0, Agatston Score: 0 Coronary Artery: RCA, # of Lesions: 0, Volume Score: 0, Mass Score: 0, Agatston Score: 0 Coronary Artery: Total, # of Lesions: 0 , Volume Score: 0, Mass Score: 0, Agatston Score: 0. The Agatston score indicates No Identif iable Calcification. The total Agatston score of 0 ranks JOCY BENÍTEZ within the Low Risk Category for females, of similar age. (Note: the d atabase only contains persons between the ages of 30 and 79.) OTHER COMMENTS: This is a limited CT scan of the chest for evaluation of coronary artery calcification only and is not intended for any other purpose. Please refer to the attached recommen dations provided to you at the time of your Cardioscan study for further information. Luca Lee MD [address] [facility], [address] [place] [address] PROVIDER APPROVAL DATETIME: 2016-04-23 14:45:20.0 Procedure Note Interface, External Ris In - 05/11/2016 2:17 PM CDT NAME: ISIAH BENÍTEZ : [id number] GENDER: f ACCOUNT NUM: [id number] TEST: Coronary Calcium Score TEST DATE: TEST LOCATION: [facility] INPATIENT: INDICATION FOR TEST: None SYMPTOMS: None PROTOCOL: High-resolution, ECG-synchronized Computed Tomography (CT) of the heart and coronary arteries was performed using a Multi-Detector Computed Tomography (MDCT). Each slice acquired was 3 mm thick using a 3 mm slice to slice step. The average heart rate of the patient was 95 bpm and varied over a range of 3 bpm. There were no image artifacts.. REPORT: Based on the size and density of the calcium deposits in each artery, a calcium score was computed using Siemens volumetric cardiac scoring software. Such deposits are markers for underlying coronary atherosclerosis. The coronary artery calcium score enables a person to compare his or her level of coronary calcification to levels found in healthy individuals of the same age and gender. The score is an indicator of the likelihood for significant coronary artery obstruction and the risk of a subsequent cardiac event. Coronary Artery: Left Main, # of Lesions: 0, Volume Score: 0, Mass Score: 0, Agatston Score: 0 Coronary Artery: LAD, # of Lesions: 0, Volume Score: 0, Mass Score: 0, Agatston Score: 0 Coronary Artery: LCX, # of Lesions: 0, Volume Score: 0, Mass Score: 0, Agatston Score: 0 Coronary Artery: RCA, # of Lesions: 0, Volume Score: 0, Mass Score: 0, Agatston Score: 0 Coronary Artery: Total, # of Lesions: 0, Volume Score: 0, Mass Score: 0, Agatston Score: 0. The Agatston score indicates No Identifiable Calcification. The total Agatston score of 0 ranks ISIAH BENÍTEZ within the Low Risk Category for females, of similar age. (Note: the database only contains persons between the ages of 30 and 79.) OTHER COMMENTS: This is a limited CT scan of the chest for evaluation of coronary artery calcification only and is not intended for any other purpose. Please refer to the attached recommendations provided to you at the time of your Cardioscan study for further information. Luca Lee MD [address] [facility], [address] [place] [address] PROVIDER APPROVAL DATETIME: 2016-05-08 14:45:20.0 Performing Organization Address City/State/Zipcode Ph one Number [facility] documented in this encounter Visit Diagnoses Diagnosis Acute chest pain Unspecified chest pain documented in this encounter
--- OUTSIDE RECORDS SUMMARY | 2019-11-28 22:37 | XMS REPORT | Encounter Summary ---
Author Author [facility] Address Unknown Phone Unavailable Care Team Providers Care Polymerization Kettle Operator Name Role Phone Ebony Sharp MD PCP Reason for Visit * Reason Comments Follow-up Margot Left Ankle/algTVX: Brissa t. Reminder (04/21/2016 06:56 PM) Phone Call - Message Delivered (X=Answering Machine) Encounter Details Care Team Description Date Type Department Mendy Carpenter PA-C [address] [place] [address] [phone] 04/23/2016 [facility] [address] [facility] [address] [place] [address] Social History Date Tobacco Use Types Packs/Day [...] Description Date [place] [address] [place] [address] [phone] 02/29/2020 Office Visit Urology documented as of this encounter Visit Diagnoses Not on filedocumented in this encounter Additional Health Concerns Resolved Time Infection Noted Time 04/19/2018 12:13 PM CDT Influenza 08/30/2017 10:13 AM TRANSITION ASSISTANT documented as of this encounter
--- OUTSIDE RECORDS SUMMARY | 2019-11-28 22:37 | XMS REPORT | Encounter Summary ---
Author Author [facility] Organization [facility] Address Unknown Phone Unavailable Care Team Providers Care Chief Hydroelectric Station Operator Name Role Phone Ebony Sharp MD PCP Encounter Details Care Team Description Date Type Department Juarez Noble 04/29/2016 Hist[facility]Transcript [facility] En[facility] Specialists [address] [facility] [facility] [address] [place], [place] [id number] Social History Date Tobacco Use Types Packs/Day Years Used Quit: 09/14/2009 Former Smoker Smokeless Tobacco: Never Used Drinks/Week oz/Week Comments Alcohol Use No Sex Assigned at Date Recorded Female Industry Job Start Date Occupation Not on file Not on file Not on file Travel End Travel History Travel Start No recent travel history available. documented as of this encounter Procedure Notes * Juarez Noble - 04/30/2016 11:04 AM CDT Associated Order(s): MRI PROCEDURE REPORT HISTORICAL MRI LEFT ANKLE WITHOUT CONTRAST: TECHNIQUE: 1.5T MR: Coronal and axial T1, T2 FSE and sagittal T1, STIR equivalent sequences acquired. INDICATION: Third tarsal metatarsal fracture COMPARISON: None. FINDINGS: OSSEOUS/ARTICULAR: Abnormal appearance of the medial aspect of the talar dome noted. Large area of bone marrow edema identified with large subchondral cysts noted medially. The integrity of the most medial aspect of the talar dome cortex is questioned. The superior cartilage is also in question of its integrity. The distal talus is unremarkable. Visualized tibia and fibula are unremarkable. Calcaneus is intact. In the region of interest, the navicular and cuneiforms appear unremarkable. No evidence of abnormality or signal change is identified in the visualized proximal metatarsals. No hindfoot deformity or tarsal coalition is present. SOFT TISSUES: Flexor and extensor tendons exhibit normal signal intensity and morphology. The anterior/posterior tibiofibular/talofibular and the calcaneofibular ligaments are intact and appear normal. The visualized spring and superficial/deep components of the deltoid ligaments are intact and appear normal. The tarsal tunnel, sinus tarsi and plantar aponeurosis appear normal. OTHER: The retrocalcaneal bursa and Kager's fat pad appear normal. No mass or anomalous muscle is identified. No Cunha's neuropathy is identified. No abnormality along the course of the medial plantar, lateral plantar or inferior calcaneal nerve is identified. IMPRESSION: No abnormality in the region of the tarsals or metatarsals noted. However, extensive changes noted in the medial talar dome where the patient has large area of bone marrow edema and large subchondral cyst formation. At this time, there is question of the integrity of the medial most cortex and articular cartilage of the medial talar dome. Dictated By: KIRK NUNEZ DR Exam and Interpretation provided by [facility] [address], [address] * [place] [address] * [phone] [address] * [place] [address] * [phone] [facility] * [place] [address] * [phone] [address], [address] * [place] [address] * [phone] [address] [facility] * [place] [address] * [phone] [address] [facility], [facility] [address] * [place] [address] * [phone] * [phone] documented in this encounter Plan of Treatment Care Team Description Date [place] [address] [place] [address] [phone] 02/29/2020 Office Visit Urology documented as of this encounter Procedures Comments Procedure Name Priority Date/Time Associated Diag nosis MRI PROCEDURE REPORT 04/29/2016 HISTORICAL 6:41 PM CDT documented in this encounter Results * MRI PROCEDURE REPORT HISTORICAL (04/29/2016 6:41 PM CDT) Specimen Narrative Performed At Ordered by an unspecified provider. Procedure Note Interface, Licensed Investment Sales Assistant Conversion - 04/30/2016 11:04 AM CDT MRI LEFT ANKLE WITHOUT CONTRAST: TECHNIQUE: 1.5T MR: Coronal and axial T1, T2 FSE and sagittal T1, STIR equivalent sequences acquired. INDICATION: Third tarsal metatarsal fracture COMPARISON: None. FINDINGS: OSSEOUS/ARTICULAR: Abnormal appearance of the medial aspect of the talar dome noted. Large area of bone marrow edema identified with large subchondral cysts noted medially. The integrity of the most medial aspect of the talar dome cortex is questioned. The superior cartilage is also in question of its integrity. The distal talus is unremarkable. Visualized tibia and fibula are unremarkable. Calcaneus is intact. In the region of interest, the navicular and cuneiforms appear unremarkable. No evidence of abnormality or signal change is identified in the visualized proximal metatarsals. No hindfoot deformity or tarsal coalition is present. SOFT TISSUES: Flexor and extensor tendons exhibit normal signal intensity and morphology. The anterior/posterior tibiofibular/talofibular and the calcaneofibular ligaments are intact and appear normal. The visualized spring and superficial/deep components of the deltoid ligaments are intact and appear normal. The tarsal tunnel, sinus tarsi and plantar aponeurosis appear normal. OTHER: The retrocalcaneal bursa and Kager's fat pad appear normal. No mass or anomalous muscle is identified. No Cunha's neuropathy is identified. No abnormality along the course of the medial plantar, lateral plantar or inferior calcaneal nerve is identified. IMPRESSION: No abnormality in the region of the tarsals or metatarsals noted. However, extensive changes noted in the medial talar dome where the patient has large area of bone marrow edema and large subchondral cyst formation. At this time, there is question of the integrity of the medial most cortex and articular cartilage of the medial talar dome. Dictated By: KIRK NUNEZ DR Exam and Interpretation provided by [facility] [address], [address] * [place] [address] * [phone] [address] * [place] [address] * [phone] [facility] * [place] [address] * [phone] [address] * [place] [address] * [phone] [address] [facility] * [place], [place] [address] * [phone] [address] [facility] [address] * [place], [place] [address] * [phone] * [phone] documented in this encounter Visit Diagnoses Not on filedocumented in this encounter Additional Health Concerns Resolved Time Infection Noted Time 04/19/2018 12:13 PM CDT Influenza 08/30/2017 10:13 AM POWER SYSTEMS ENGINEER 08/30/2019 1:09 PM POWER SYSTEMS ENGINEER Influenza - Rule Out 08/30/2019 11:32 AM POWER SYSTEMS ENGINEER 09/17/2019 8:17 AM POWER SYSTEMS ENGINEER RSV 08/31/2019 6:35 PM POWER SYSTEMS ENGINEER documented as of this encounter
--- OUTSIDE RECORDS SUMMARY | 2019-11-28 22:37 | XMS REPORT | Encounter Summary ---
Author Author [facility] Organization [facility] Address Unknown Phone Unavailable Care Team Providers Care Tech Intern Name Role Phone Ebony Sharp MD PCP Reason for Visit * Reason Comments Other Encounter Details Care Team Description Date Type Department Ebony Sharp MD [address] [facility] [address] [place] [address] [phone] Other 03/21/2016 Refill [facility] [address] [facility] [address] [place], [place] [id number] Social History Date Tobacco Use Types Packs/Day [...] Description Date [place] [address] [place] [address] [phone] 02/29/2020 Office Visit Urology documented as of this encounter Visit Diagnoses Not on filedocumented in this encounter
--- OUTSIDE RECORDS SUMMARY | 2019-11-28 22:37 | XMS REPORT | Encounter Summary ---
Author Author [facility] Organization [facility] Address Unknown Phone Unavailable Care Team Providers Care Director Counseling Bureau Name Role Phone Ebony Sharp MD PCP Encounter Details Care Team Description Date Type Department Ebony Sharp MD [address] [facility] [address] [place] [address] [phone] 05/11/2016 Documentation [facility] (walk-in clinic) [address] [facility] [address] [place], [place] [id number] Social History Date Tobacco Use Types Packs/Day [...] Description Date [place] [address] [place] [address] [phone] 02/29/2020 Office Visit Urology documented as of this encounter Visit Diagnoses Not on filedocumented in this encounter
--- OUTSIDE RECORDS SUMMARY | 2019-11-28 22:37 | XMS REPORT | Encounter Summary ---
Author Author [facility] Organization [facility] Address Unknown Phone Unavailable Care Team Providers Care Warp Tying Machine Tender Name Role Phone Ebony Sharp MD PCP Reason for Visit * Sleep Study (Routine) Referred By Contact Referred To Contact Status Reason Specialty Diagnoses / Procedures Medardo Radford MD [address] [facility] [address] [place] [address] [facility] [address] [facility] [address] [place] [address] Closed Sleep Medicine Diagnoses SASHA (obstructive sleep apnea) Iron deficiency Goldberg-Ekbom syndrome Parasomnia P rocedures Split Night Sleep Study Encounter Details Care Team Description Date Type Department Medardo Radford MD [address] [facility] [address] [place] [address] [phone] SASHA (obstructive sleep apnea); Iron deficiency; Goldberg-Ekbom syndrome; Parasomnia; PLMD (periodic limb movement disorder) 05/12/2016 Nurse Only [facility] [address] [facility] [address] [place], [place] [address] Social History Date Tobacco Use Types Packs/Day [...] Description Date [place] [address] [place] [address] [phone] 02/29/2020 Office Visit Urology documented as of this encounter Procedures Comments Procedure Name Priority Date/Time Associated Diag nosis SPLIT NIGHT SLEEP STUDY Routine 05/18/2016 SASHA (o bstructive sleep 10:49 AM CDT apnea) Iron deficiency Goldberg-Ekbom syndrome Parasomnia documented in this encounter Results * Split Night Sleep Study (05/18/2016 10:49 AM CDT) Narrative Performed At This result has an attachment that is n ot available. 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
--- OUTSIDE RECORDS SUMMARY | 2019-11-28 22:37 | XMS REPORT | Encounter Summary ---
Author Author [facility] Organization [facility] Address Unknown Phone Unavailable Care Team Providers Care Cable Ferryboat Operator Name Role Phone Ebony Sharp MD PCP Encounter Details Care Team Description Date Type Department [place], Historical 04/23/2016 Hist-Transcript [facility] Encounter Specialists [address] [facility] [address] [place], [place] [id number] Social History Date Tobacco Use Types Packs/Day Years Used Quit: 09/14/2009 Former Smoker Smokeless Tobacco: Never Used Drinks/Week oz/Week Comments Alcohol Use No Sex Assigned at Date Recorded Female Industry Job Start Date Occupation Not on file Not on file Not on file Travel End Travel History Travel Start No recent travel history available. documented as of this encounter Progress Notes * [place], Historical - 04/23/2016 1:49 PM CDT - History of Present Illness The patient presents for followup status post left distal phalanx fracture of he r third toe. She reports that her toe pain has improved. She has had increase in pain in her ankle. She reports that the ankle pain has worsened over the pre vious couple of weeks. She has been unable to weight bear for long periods of t yarely without pain. She ambulates with a limp at todays visit. She reports th at her ankle has been swollen more than usual. She has previously been told she has arthritis in this joint. Past Medical History High Blood Pressure Arthritis [...] and concur with the histories collected on 04/23/2016. -Mendy Carpenter PA-C, April 23, 2016 2:56 PM Review of Systems General: Complains of weight [...] and in no acute distress. Dorsalis pedis and po sterior tibial pulses are palpable. Minimal dorsiflexion and plantar flexion wi thout complaint. Mild tenderness to palpation over the third phalanx. Dorsifle xion and plantar flexion at the third MTP joint without complaint. Mild ankle e yesy is present. Homans sign negative. No signs of ankle instability. Radiographs: AP, lateral, and oblique left foot x-rays demonstrate a healing third phalanx fr acture with no signs of bony subluxation. Left AP and oblique ankle x-rays demo nstrate what possibly is an osteochondral defect in the medial superior portion of the talus. No signs of acute fracture or bony subluxation. Significant oste oarthritis changes in the tibiotalar joint noted. No signs of acute fracture or bony subluxation. Impression A 65-year-old woman with left ankle pain and status post left third phalanx frac ture. Plan At this point, x-rays were reviewed with Dr. Olivas. She will follow up with Dr. Olivas at her next visit. At that time, we anticipate discussing further treatm ent options for her possible osteochondral defect. We will place her into a boa brace at todays visit and obtain an MRI. I would like her to follow up with Dr. Olivas in three weeks. . I would like her to return in 3 weeks. No X-ray will be needed at that time. Orders from current office visit: Foot x-ray 3+ views Ankle x-ray 3 views PQRS 128a PQRS 317na PQRS 130 [id number] PQRS 41 Diabetic pulse exam Diabetic sensory exam MRI Ankle BOA ankle brace * Signed by Adelaida Olivas MD on June 02, 2016 at 1:45 PM X-Ray Report AP, lateral, and oblique left foot x-rays demonstrate a healing third phalanx fr acture with no signs of bony subluxation. Left AP and oblique ankle x-rays demo nstrate what possibly is an osteochondral defect in the medial superior portion of the talus. No signs of acute fracture or bony subluxation. Significant oste oarthritis changes in the tibiotalar joint noted. No signs of acute fracture or bony subluxation. documented in this encounter Plan of Treatment Care Team Description Date [place] [address] [place] [address] [phone] 02/29/2020 Office Visit Urology documented as of this encounter Visit Diagnoses Not on filedocumented in this encounter Additional Health Concerns Resolved Time Infection Noted Time 04/19/2018 12:13 PM CDT Influenza 08/30/2017 10:13 AM LAP WELDER 08/30/2019 1:09 PM LAP WELDER Influenza - Rule Out 08/30/2019 11:32 AM LAP WELDER 09/17/2019 8:17 AM LAP WELDER RSV 08/31/2019 6:35 PM LAP WELDER documented as of this encounter
--- OUTSIDE RECORDS SUMMARY | 2019-11-28 22:37 | XMS REPORT | Encounter Summary ---
Author Author [facility] Organization [facility] Address Unknown Phone Unavailable Care Team Providers Care Hand Candle Dipper Name Role Phone Ebony Sharp MD PCP Encounter Details Care Team Description Date Type Mendy Mckenzie PA-C [address] [address] [phone] 04/23/2016 Hist-Other [facility] [address] [place] [address] Social History Date Tobacco Use Types Packs/Day [...] Description Date [place] [address] [place] [address] [phone] 02/29/2020 Office Visit Urology documented as of this encounter Procedures Comments Procedure Name Priority Date/Time Associated Diag nosis XR ANKLE LEFT Routine 04/23/2016 2:47 PM CDT documented in this encounter Results * XR Ankle left (04/23/2016 2:47 PM CDT) Specimen Performing Organization Address City/State/Zipcode Ph one Number [place] documented in this encounter Visit Diagnoses Not on filedocumented in this encounter Additional Health Concerns Resolved Time Infection Noted Time 04/19/2018 12:13 PM CDT Influenza 08/30/2017 10:13 AM EXTRUDER OPERATOR HORIZONTAL documented as of this encounter
--- OUTSIDE RECORDS SUMMARY | 2019-11-28 22:37 | XMS REPORT | Encounter Summary ---
Author Author [facility] Organization [facility] Address Unknown Phone Unavailable Care Team Providers Care Car Inspection And Repair Manager Name Role Phone Ebony Sharp MD PCP Encounter Details Care Team Description Date Type Department Medardo Radford MD [address] [facility] [address] [place] [address] [phone] 03/09/[address] [facility] [address] [facility] [address] [place] [address] Social History Date Tobacco Use Types Packs/Day Years Used Quit: 09/14/2009 Former Smoker Smokeless Tobacco: Never Used Drinks/Week oz/Week Comments Alcohol Use No Sex Assigned at Date Recorded Female Industry Job Start Date Occupation Not on file Not on file Not on file Travel End Travel History Travel Start No recent travel history available. documented as of this encounter Progress Notes * Cecilia Pink - 03/09/2016 3:35 PM CDT No PA required for CPT codes 48719-35788 split night sleep study. Pt has Medicar e, requires no pa or pre cert for any procedures. PT scheduled for 04/16 at sle documented in this encounter Plan of Treatment Care Team Description [place] [address] [place] [address] [phone] 02/29/2020 Office Visit Urology documented as of this encounter Visit Diagnoses Not on filedocumented in this encounter
--- OUTSIDE RECORDS SUMMARY | 2019-11-28 22:37 | XMS REPORT | Encounter Summary ---
Author Author [facility] Organization [facility] Address Unknown Phone Unavailable Care Team Providers Care Manager Mail Name Role Phone Ebony Sharp MD PCP Encounter Details Care Team Description Date Type Mendy Mckenzie PA-C [address] [address] [phone] 04/23/2016 Hist-Other [facility] [address] [place] [address] Social History Date Tobacco Use Types Packs/Day [...] Description Date [place] [address] [place] [address] [phone] 02/29/2020 Office Visit Urology documented as of this encounter Procedures Comments Procedure Name Priority Date/Time Associated Diag nosis XR FOOT Routine 04/23/2016 1:57 PM CDT documented in this encounter Results * XR Foot (04/23/2016 1:57 PM CDT) Specimen Performing Organization Address City/State/Zipcode Ph one Number LEVI documented in this encounter Visit Diagnoses Not on filedocumented in this encounter Additional Health Concerns Resolved Time Infection Noted Time 04/19/2018 12:13 PM CDT Influenza 08/30/2017 10:13 AM STRIPE MATCHER documented as of this encounter
--- OUTSIDE RECORDS SUMMARY | 2019-11-28 22:37 | XMS REPORT | Encounter Summary ---
Author Author [facility] Organization [facility] Address Unknown Phone Unavailable Care Team Providers Care Director Of Strategic Alliances Name Role Phone Ebony Sharp MD PCP Encounter Details Care Team Description Date Type Department Medardo Radford MD [address] [address] [phone] SASHA (obstructive sleep apnea); Iron deficiency; Goldberg-Ekbom syndrome; Parasomnia 02/21/2016 Lab [facility] [phone] Social History Date Tobacco Use Types Packs/Day [...] Description Date [place] [address] [place] [address] [phone] 02/29/2020 Office Visit Urology documented as of this encounter Procedures Comments Procedure Name Priority Date/Time Associated Diag nosis FERRITIN Routine 02/21/2016 SASHA (obstructiv e sleep 8:16 PM CDT apnea) Iron deficiency Goldberg-Ekbom syndrome Parasomnia documented in this encounter Results * Ferritin (02/21/2016 8:16 PM CDT) Ferritin 201 (H) 20 - 200 ng/mL [facility] Specimen Blood Performing Organization Address City/State/Zipcode Ph one Number [address] [address] LABORATORIES documented in this encounter Visit Diagnoses Diagnosis SASHA (obstructive sleep apnea) Obstructive sleep apnea (adult) (pediat amita) Iron deficiency 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
--- OUTSIDE RECORDS SUMMARY | 2019-11-28 22:37 | XMS REPORT | Encounter Summary ---
Author Author [facility] Organization [facility] Address Unknown Phone Unavailable Care Team Providers Care Is Consultant Name Role Phone Ebony Sharp MD PCP Reason for Visit * Reason Comments Other Encounter Details Care Team Description Date Type Department Ebony Sharp MD [address] [facility] [address] [place] [address] [phone] Other 02/29/2016 Refill [facility] (walk-in clinic) [address] [facility] [address] [place], [place] [id number] Social History Date Tobacco Use Types Packs/Day [...] Description Date [place] [address] [place] [address] [phone] 02/29/2020 Office Visit Urology documented as of this encounter Visit Diagnoses Not on filedocumented in this encounter
--- OUTSIDE RECORDS SUMMARY | 2019-11-28 22:37 | XMS REPORT | Encounter Summary ---
Author Author [facility] Organization [facility] Address Unknown Phone Unavailable Care Team Providers Care Machine Maintenance Technician Name Role Phone Ebony Sharp MD PCP Reason for Visit * Reason Comments Follow-up eldon L ankle Encounter Details Care Team Description Date Type Department Adelaida Olivas MD [address] [facility] [address] [place] [address] [phone] 04/30/2016 [facility] [address] [facility] [address] [place] [address] Social History Date Tobacco Use Types Packs/Day [...] Description Date [place] [address] [place] [address] [phone] 02/29/2020 Office Visit Urology documented as of this encounter Visit Diagnoses Not on filedocumented in this encounter Additional Health Concerns Resolved Time Infection Noted Time 04/19/2018 12:13 PM CDT Influenza 08/30/2017 10:13 AM ORDNANCE ENGINEERING TECHNICIAN documented as of this encounter
--- OUTSIDE RECORDS SUMMARY | 2019-11-28 22:37 | XMS REPORT | Encounter Summary ---
Author Author [facility] Organization [facility] Address Unknown Phone Unavailable Care Team Providers Care Conservation Engineer Name Role Phone Ebony Sharp MD PCP Encounter Details Care Team Description Date Type Department Adelaida Olivas MD [address] [facility] [address] [place] [address] 03/16/2016 Hist[facility]Telephone [facility] [address] [facility] [address] [place], [place] [id number] Social History Date Tobacco Use Types Packs/Day [...] Clinic Note - Adelaida Olivas MD - 03/16/2016 7:39 AM CDT ---- Converted from flag ---- ---- 03/15/2016 10:04 AM, Adelaida Olivas MD wrote: Bone density shows osteopenia. Plese forward these results to PMD and pt and [facility]. Follow-up for Phone Call Follow-up Details: Spoke with patient regarding bone density results. Faxed rep ort to Dr. Sharp and scheduled patient to see Mendy on 8-3-16. Follow-up by: Sheryl Stearns on March 16, 2016 10:07 AM documented in this encounter Plan of Treatment Care Team Description Date [place] [address] [place] [address] [phone] 02/29/2020 Office Visit Urology documented as of this encounter Visit Diagnoses Not on filedocumented in this encounter Additional Health Concerns Resolved Time Infection Noted Time 04/19/2018 12:13 PM CDT Influenza 08/30/2017 10:13 AM UTILITY HELICOPTER REPAIRER 08/30/2019 1:09 PM UTILITY HELICOPTER REPAIRER Influenza - Rule Out 08/30/2019 11:32 AM UTILITY HELICOPTER REPAIRER 09/17/2019 8:17 AM UTILITY HELICOPTER REPAIRER RSV 08/31/2019 6:35 PM UTILITY HELICOPTER REPAIRER documented as of this encounter
--- OUTSIDE RECORDS SUMMARY | 2019-11-28 22:37 | XMS REPORT | Encounter Summary ---
Author Author [facility] Organization [facility] Address Unknown Phone Unavailable Care Team Providers Care Foundation Coordinator Name Role Phone Ebony Sharp MD PCP Reason for Visit * Reason Comments Other Encounter Details Care Team Description Date Type Department Medardo Radford MD [address] [place], [place] [id number] 02/25/2016 Telephone [facility] [address] [place] [address] Social History Date Tobacco Use Types Packs/Day [...] encounter Miscellaneous Notes * Telephone Encounter - Simona Garcia MA - 02/25/2016 10:42 AM CDT Pt notified and agreed to d/c otc supplementation. * Telephone Encounter - Simona Garcia MA - 02/25/2016 10:40 AM CDT ----- Message from Medardo Radford MD sent at 02/25/2016 8:59 AM CDT ----- Patient is at extreme normal range. Make sure no iron supplementation are taken. Thanks for your assistance, MMV documented in this encounter Plan of Treatment Care Team Description [place] [address] [place] [address] [phone] 02/29/2020 Office Visit Urology documented as of this encounter Visit Diagnoses Not on filedocumented in this encounter
--- OUTSIDE RECORDS SUMMARY | 2019-11-28 22:37 | XMS REPORT | Encounter Summary ---
Author Author [facility] Organization [facility] Address Unknown Phone Unavailable Care Team Providers Care Media Production Support Manager Name Role Phone Ebony Sharp MD PCP Reason for Referral * Diagnostic Imaging (Routine) Referred By Contact Referred To Contact Status Reason Specialty Diagnoses / Procedures Sle Slmg Ls Im/Pc Cl [address] [facility] [address] [place] [address] Closed Procedures DEXA Bone Density Hip Pelvis Spine Encounter Details Care Team Description Date Type Department Ebony Sharp MD [address] [facility] [address] [place], [place] [address] 03/18/2016 Documentation [facility] (walk-in clinic) [address] [facility] [address] [place], [place] [id number] Social History Date Tobacco Use Types Packs/Day [...] Description Date [place] [address] [place] [address] [phone] 02/29/2020 Office Visit Urology documented as of this encounter Procedures Comments Procedure Name Priority Date/Time Associated Diag nosis DEXA BONE DENSITY HIP Routine 03/18/2016 PELVIS SPINE 9:05 AM CDT documented in this encounter Results * DEXA Bone Density Hip Pelvis Spine (03/18/2016 9:05 AM CDT) Narrative Performed At This result has an attachment that is n ot available. documented in this encounter Visit Diagnoses Not on filedocumented in this encounter
--- OUTSIDE RECORDS SUMMARY | 2019-11-28 22:37 | XMS REPORT | Encounter Summary ---
Author Author [facility] Organization [facility] Address Unknown Phone Unavailable Care Team Providers Care Construction Producer Name Role Phone Ebony Sharp MD PCP Encounter Details Care Team Description Date Type Department Ebony Sharp MD [address] [facility] [address] [place] [address] [phone] 03/09/2016 Documentation [facility] (walk-in clinic) [address] [facility] [address] [place], [place] [address] Social History Date Tobacco Use Types Packs/Day [...] Description Date [place] [address] [place] [address] [phone] 02/29/2020 Office Visit Urology documented as of this encounter Visit Diagnoses Not on filedocumented in this encounter
--- OUTSIDE RECORDS SUMMARY | 2019-11-28 22:38 | XMS REPORT | Encounter Summary ---
Author Author [facility] Organization [facility] Address Unknown Phone Unavailable Care Team Providers Care Geospatial Analyst Name Role Phone Ebony Sharp MD PCP Reason for Visit * Reason Comments Other Encounter Details Care Team Description Date Type Department Ebony Sharp MD [address] [facility] [address] [place] [address] [phone] Other 02/02/2016 Refill [facility] y [facility] (walk-in clinic) [address] [facility] [address] [place], [place] [address] Social History Date Tobacco Use Types Packs/Day [...] Description Date [place] [address] [place] [address] [phone] 02/29/2020 Office Visit Urology documented as of this encounter Visit Diagnoses Not on filedocumented in this encounter
--- OUTSIDE RECORDS SUMMARY | 2019-11-28 22:38 | XMS REPORT | Encounter Summary ---
Author Author [facility] Organization [facility] Address Unknown Phone Unavailable Care Team Providers Care Manager Business Intelligence Name Role Phone Ebony Sharp MD PCP Encounter Details Care Team Description Date Type Department Adelaida Olivas MD [address] [facility] [address] [place] [address] [phone] 01/28/2016 Hist-Other [facility] [address] [place] [address] Social History Date Tobacco Use Types Packs/Day [...] Description Date [place] [address] [place] [address] [phone] 02/29/2020 Office Visit Urology documented as of this encounter Procedures Comments Procedure Name Priority Date/Time Associated Diag nosis XR FOOT LEFT Routine 01/28/2016 2:30 PM CDT documented in this encounter Results * XR Foot left (01/28/2016 2:30 PM CDT) Specimen Performing Organization Address City/State/Zipcode Ph one Number LEVI documented in this encounter Visit Diagnoses Not on filedocumented in this encounter Additional Health Concerns Resolved Time Infection Noted Time 04/19/2018 12:13 PM CDT Influenza 08/30/2017 10:13 AM TECHNICAL SUPPORT INTERN documented as of this encounter
--- OUTSIDE RECORDS SUMMARY | 2019-11-28 22:38 | XMS REPORT | Encounter Summary ---
Author Author [facility] Organization [facility] Address Unknown Phone Unavailable Care Team Providers Care Reshipping Clerk Name Role Phone Ebony Sharp MD PCP Reason for Referral * Diagnostic Imaging (Routine) Referred By Contact Referred To Contact Status Reason Specialty Diagnoses / Procedures Ebony Sharp MD [address] [facility] [address] [place] [address] [facility] C[facility] Nuc Med [address] [place] [address] Closed Cardiology Diagnoses Acute chest pain P rocedures CV MPI 2 Day SPECT Study CV MPI SPECT Pharmacologic Reason for Visit * Reason Comments Follow-up 4mth fu Encounter Details Care Team Description Date Type Department Ebony Sharp MD [address] [facility] [address] [place] [address] Acute chest pain (Primary Dx); Type 2 diabetes mellitus without complication (HCC); Essential hypertension; MATA (generalized anxiety disorder); Hyperlipidemia 02/14/2016 Office Visit [facility] (walk-in clinic) [address] [facility] [address] [place] [address] Social History Date Tobacco Use [...] Signs Reading Time Taken Comments Vital Sign 142/94 02/14/2016 4:15 PM CDT Blood Pressure 76 02/14/2016 4:15 PM CDT Pulse - - Temperature - - Respiratory Rate 93% 02/14/2016 4:15 PM CDT Oxygen Saturation - - Inhaled Oxygen Concentration 104.8 kg (231 lb) 02/14/2016 4:15 PM CDT Weight 152.4 cm (5') 02/14/2016 4:15 PM CDT Height 45.11 02/14/2016 4:15 PM CDT Body Mass Index documented in this encounter Progress Notes * Eobny Sharp MD - 02/14/2016 4:37 PM CDT CC: Follow-up HPI : Isiah Benítez is a 65 y.o. female who presents with complaints of Follow-up 1. HTN - uncontrolled right now. She is in some pain from her toe. 2. CP - gets pain with anxiety. It is a squeezing pain. It resolves when she calms down. She does not feel panic. She does not feel short of breath or impe nding doom with these episodes. 3. Morbid obesity - pursuing bariatric (eagerly). Has sleep study coming up th at she believes will be positive. ALLERGIES: Allergies Allergen Reactions Lisinopril Anaphylaxis Metformin Sulfa (Sulfonamide Antibiotics) CURRENT MEDICATIONS: Current Outpatient Prescriptions Medication Sig Dispense Refill albuterol (PROAIR HFA) 90 mcg/actuation HFA inhaler Inhale 1 puff every 4 (f our) hours as needed for wheezing. 8 g 2 amitriptyline (ELAVIL) 25 MG tablet Take one tablet (25 mg total) by mouth n ightly. 90 tablet 1 amLODIPine (NORVASC) 2.5 MG tablet Take 1 tablet (2.5 mg total) by mouth jcarlos ly. Take one daily. 90 tablet 1 aspirin 81 MG EC tablet Take 81 mg by mouth daily. citalopram (CELEXA) 20 MG tablet Take one tablet (20 mg total) by mouth eve y. 90 tablet 1 fluticasone-vilanterol (BREO ELLIPTA) 200-25 mcg/actuation INHALER Inhale on e puff daily. 3 each 1 gabapentin (NEURONTIN) 300 MG capsule Take one capsule (300 mg total) by tanna th 3 (three) times a day. 270 capsule 1 HYDROcodone-acetaminophen (NORCO) 5-325 mg [...] 3 mL 4 (four) times a day. 3 mL 30 LANTUS 100 unit/mL injection ADMINISTER 15 UNITS UNDER THE SKIN EVERY EVENIN G 10 mL 0 metoprolol tartrate (LOPRESSOR) 100 MG tablet Take one tablet (100 mg total) by mouth 2 (two) times a day. 180 tablet 1 OXYGEN THERAPY as needed. simvastatin (ZOCOR) 20 MG tablet Take one tablet (20 mg total) by mouth nigh tly. 90 tablet 1 famotidine (PEPCID) 20 MG tablet Take one tablet (20 mg total) by mouth 2 (t wo) times a day. 180 tablet 1 [DISCONTINUED] albuterol ( ACCUNEB) 1.25 mg/3 mL nebulizer solution Take 1 ampule by nebulization every 6 (six) hours as needed for wheezing. No current facility-administered medications for this visit. LAB SUMMARY: Lab Results Component Value Date WBC 10.31 12/31/2015 HGB 14.7 12/31/2015 HCT 43 12/31/2015 PLT 166 12/31/2015 CHOL 266* 09/24/2015 TRIG 203* 09/24/2015 HDL 83 09/24/2015 ALT 16 12/31/2015 AST 26 12/31/2015 NA 142 12/31/2015 K 3.9 12/31/2015 CL 97 12/31/2015 BUN 13 12/31/2015 CO2 35* 12/31/2015 TSH 0.27* 12/06/2015 INR 0.9 12/31/2015 HGBA1C 6.6* 01/06/2016 MICROALBUR 7.20 09/24/2015 SOCIAL HISTORY: History Social History Marital Status: Single Spouse Name: N/A Number of Children: N/A Years of Education: N/A Social History Main Topics Smoking status: Former Smoker Quit date: 09/14/2009 Smokeless tobacco: Never Used Alcohol Use: No Drug Use: No Sexual Activity: No Other Topics Concern None Social History Narrative HEALTH MAINTENANCE: Health Maintenance Topic Date Due Diabetes Mellitus Ophthalmology Exam 1952 Diabetes Mellitus Foot Exam 1962 Cervical Cancer Screening 1973 Mammogram Screening 01/05/2013 Lipid Screening 09/24/2016 Diabetes Mellitus Urine Microalbumin 09/24/2016 Diabetes Mellitus Hemoglobin A1c 01/05/2017 Colorectal Screening via Colonoscopy 12/24/2019 There is no immunization history on file for this patient. Review of Systems Constitutional: Negative. Respiratory: Negative. Cardiovascular: Negative. Gastrointestinal: Negative. Musculoskeletal: Negative. Toe pain Psychiatric/Behavioral: Negative. OBJECTIVE Filed Vitals: 02/14/16 1615 BP: 142/94 Pulse: 76 Height: 1.524 m (5') Weight: 104.781 kg (231 lb) SpO2: 93% Estimated body mass index is 45.11 kg/(m^2) as calculated from the following: Height as of this encounter: 1.524 m (5'). Weight as of this encounter: 104.781 kg (231 lb). Physical Exam Constitutional: She appears well-developed [...] and all orders for this visit: Acute chest pain Orders: - CV MPI SPECT Pharmacologic; Future Type 2 diabetes mellitus without complication Essential hypertension MATA (generalized anxiety disorder) Hyperlipidemia Other orders - amitriptyline (ELAVIL) 25 MG tablet; Take 1 tablet (25 mg total) by mouth nightly. - amLODIPine (NORVASC) 2.5 MG tablet; Take 1 tablet (2.5 mg total) by mouth daily. Take one daily. - citalopram (CELEXA) 20 MG tablet; Take 1 tablet (20 mg total) by mouth jcarlos ly. - fluticasone-vilanterol (BREO ELLIPTA) 200-25 mcg/actuation INHALER; Inhale 1 puff daily. - albuterol (PROAIR HFA) 90 mcg/actuation HFA inhaler; Inhale 1 puff every 4 (four) hours as needed for wheezing. - gabapentin (NEURONTIN) 300 MG capsule; Take 1 capsule (300 mg total) by mo [facility] 3 (three) times a day. - insulin glargine (LANTUS) 100 unit/mL injection; Inject 15 Units under the skin nightly. - metoprolol tartrate (LOPRESSOR) 100 MG tablet; Take 1 tablet (100 mg total ) by mouth 2 (two) times a day. - simvastatin (ZOCOR) 20 MG tablet; Take 1 tablet (20 mg total) by mouth nig htly. - ipratropium-albuterol (DUO-NEB) 0.5-3 mg/3 mL nebulizer; Inhale 3 mL 4 (fo ur) times a day. 1. HTN - taking low dose of amlodipine 2.5mg. Her BP is high right now, but sh e says it is secondary to breaking a toe. 2. DM2 - last a1c was at 6.6, which was improved - good! Pursuing bariatric viramontes rgery. 3. CP - will send her for stress test as she is having pain with anxiety. She does not always get pain with activitiy, but feels "stressed" when she starts ge tting anxious. It could be just anxiety. 4. Fatigue - she has sleep study coming up and likely is positive. 5. Toe fracture - per Dr. Olivas. Ebony Sharp MD documented in this encounter Plan of Treatment Care Team Description [place] [address] [place] [address] [phone] 02/29/2020 Office Visit Urology documented as of this encounter Results * CV MPI 2 Day SPECT Study (05/08/2016 11:28 AM CDT) Specimen Narrative Performed At [facility] NAME: ISIAH BENÍTEZ : [id number] AGE: 65 GENDER: F ACCOUNT NUM: [id number] TEST: REGADENOSON SESTAMIBI STRESS ON LY SPECT SCINTIGRAPHIC REPORT TEST DATE: TEST LOCATION: REFERRING PHYSICIAN: Ebony Sharp MD SUPERVISING PHYSICIAN: Luca Lee MD MEDICATIONS MEDS LAST 24 HOURS: Pepcid, Breo Elliip ta, Lopressor, Neurontin, ASA, Emmett, Norvasc, Celexa MEDS HELD LAST 24 HOURS: [...] score of 0. Luca Lee MD [address] [facility], [address] [place] [address] DICTATED DATE: 2016-05-08 14:03:00.0 SALES PROJECT ENGINEER DATETIME: 2016-05-08 14:1 5:36.0 ACTUAL TEST TIME: PROVIDER APPROVAL DATETIME: 2016-05-08 14:51:58.0 Procedure Note Interface, External Ris In - 05/08/2016 4:25 PM CDT NAME: ISIAH BENÍTEZ : [id number] AGE: 65 GENDER: F ACCOUNT NUM: [id number] TEST: REGADENOSON SESTAMIBI STRESS ONLY SPECT SCINTIGRAPHIC REPORT TEST DATE: TEST LOCATION: REFERRING PHYSICIAN: Ebony Sharp MD SUPERVISING PHYSICIAN: Lcua Lee MD MEDICATIONS MEDS LAST 24 HOURS: Pepcid, Breo Elliipta, Lopressor, Neurontin, ASA, Emmett, Norvasc, Celexa MEDS HELD LAST 24 HOURS: [...] score of 0. Luca Lee MD [address] [facility], [address] [place] [address] DICTATED DATE: 2016-05-08 14:03:00.0 SALES PROJECT ENGINEER DATETIME: 2016-05-08 14:15:36.0 ACTUAL TEST TIME: PROVIDER APPROVAL DATETIME: 2016-05-08 14:51:58.0 Performing Organization Address City/State/Zipcode Ph one Number [facility] documented in this encounter Visit Diagnoses Diagnosis Acute chest pain Unspecified chest pain Type 2 diabetes mellitus without compli cation (HCC) Essential hypertension Unspecified essential hypertension MATA (generalized anxiety disorder) Generalized anxiety disorder Hyperlipidemia Other and unspecified hyperlipidemia documented in this encounter
--- OUTSIDE RECORDS SUMMARY | 2019-11-28 22:38 | XMS REPORT | Encounter Summary ---
Author Author [facility] Organization [facility] Address Unknown Phone Unavailable Care Team Providers Care Wool Fleece Sorter Name Role Phone Ebony Sharp MD PCP Encounter Details Care Team Description Date Type Department Ebony Sharp MD [address] [facility] [address] [place] [address] [phone] 01/17/2016 Documentation [facility] (walk-in clinic) [address] [facility] [address] [place], [place] [id number] Social History Date Tobacco Use Types Packs/Day [...] Description Date [place] [address] [place] [address] [phone] 02/29/2020 Office Visit Urology documented as of this encounter Visit Diagnoses Not on filedocumented in this encounter
--- OUTSIDE RECORDS SUMMARY | 2019-11-28 22:38 | XMS REPORT | Encounter Summary ---
Author Author [facility] Organization [facility] Address Unknown Phone Unavailable Care Team Providers Care Egg Processing Supervisor Name Role Phone Ebony Sharp MD PCP Reason for Visit * Reason Comments Follow-up bp issues Encounter Details Care Team Description Date Type Department Ebony Sharp MD [address] [facility] [address] [place] [address] Type 2 diabetes mellitus without complic ation (HCC) (Primary Dx); Hyperlipidemia 01/06/2016 Office Visit [facility] (walk-in clinic) [address] [facility] [address] [place] [address] Social History Date Tobacco Use [...] Signs Reading Time Taken Comments Vital Sign 138/92 01/06/2016 12:04 PM CDT Blood Pressure 80 01/06/2016 12:04 PM CDT Pulse - - Temperature - - Respiratory Rate 93% 01/06/2016 12:04 PM CDT Oxygen Saturation - - Inhaled Oxygen Concentration 102.5 kg (226 lb) 01/06/2016 12:04 PM CDT Weight 154.9 cm (5' 1") 01/06/2016 12:04 PM CDT Height 42.7 01/06/2016 12:04 PM CDT Body Mass Index documented in this encounter Progress Notes * Ebony Sharp MD - 01/06/2016 12:22 PM CDT CC: Follow-up HPI : Caren Patten is a 65 y.o. female who presents with complaints of Follow-up 1. Dm2 - last a1c was 7.0. 2. HTN - high now. Recently was high in the walkin and went to ER. No med lali nges, but here to see me about it. Had facial swelling with lisinopril previous ly. 3. Subclinical hyperthyroid - repeat was improved (but not yet normal) 4. Obesity - she has diabetes, hypertension, hyperlipids all of which are likel y obesity related. Hence I support her pursuing bariatrics. She has stairs at home and can easily go up the flight without chest pain. She is simply limited by obesity -related shortness of air. Her EKG done in the ER last week was fine . Previous EKG comparison was fine as well. ALLERGIES: Allergies Allergen Reactions Metformin Sulfa (Sulfonamide Antibiotics) CURRENT MEDICATIONS: Current Outpatient Prescriptions Medication Sig Dispense Refill albuterol ( ACCUNEB) 1.25 mg/3 mL nebulizer solution Take 1 ampule by nebu lization every 6 (six) hours as needed for wheezing. albuterol (PROAIR HFA) 90 mcg/actuation HFA inhaler Inhale 1 puff every 4 (f our) hours as needed for wheezing. 8 g 2 amitriptyline (ELAVIL) 25 MG tablet Take one tablet (25 mg total) by mouth n ightly. 90 tablet 1 aspirin 81 MG EC [...] wo) times a day. 180 tablet 1 No current facility-administered medications [...] TSH 0.27* 12/06/2015 INR 0.9 12/31/2015 HGBA1C 7.0* 09/24/2015 MICROALBUR 7.20 09/24/2015 SOCIAL HISTORY: History Social [...] 1962 Cervical Cancer Screening 1973 Mammogram Screening 2002 Colorectal Screening via Colonoscopy 2002 Lipid Screening 09/24/2016 Diabetes Mellitus Hemoglobin A1c 09/24/2016 Diabetes Mellitus Urine Microalbumin 09/24/2016 There is no immunization history on file for this patient. Review of Systems Constitutional: Negative. Respiratory: Negative. Cardiovascular: Negative. Gastrointestinal: Negative. Musculoskeletal: Negative. Psychiatric/Behavioral: Negative. OBJECTIVE Filed Vitals: 01/06/16 1204 BP: 138/92 Pulse: 80 Height: 1.549 m (5' 1") Weight: 102.513 kg (226 lb) SpO2: 93% Estimated body mass index is 42.72 kg/(m^2) as calculated from the following: Height as of this encounter: 1.549 m (5' 1"). Weight as of this encounter: 102.513 kg (226 lb). Physical Exam Constitutional: She appears well-developed and well-nourished. obese HENT: Head: Normocephalic and atraumatic. Cardiovascular: Normal [...] this visit: Type 2 diabetes mellitus without complication Orders: - Hemoglobin A1C; Future Hyperlipidemia Other orders - amLODIPine (NORVASC) 2.5 MG tablet; Take 1 tablet (2.5 mg total) by mouth daily. Take one daily. 1. HTN - start the low dose amlodipine 2. DM2 - check a1c 3. HLD - lipids followed q6mo. Continue meds 4. Obesity - she is pursuing bariatric surgery. See above for additional infor mation. Ebony Sharp MD documented in this encounter Plan of Treatment Care Team Description Date [place] [address] [place] [address] [phone] 02/29/2020 Office Visit Urology documented as of this encounter Procedures Comments Procedure Name Priority Date/Time Associated Diag nosis MAMMOGRAPHY Routine 01/05/2011 COLONOSCOPY Routine 12/23/2009 documented in this encounter Results * Hemoglobin A1C (01/06/2016 12:50 PM CDT) Hemoglobin A1C 6.6 (H) 4.0 - 5.6 % [facility] Comment: REGIONAL Non-diabetic 4.0 - LABORATORIES 5.6 % Prediabetes 5.7 - 6.4 % Diabetes >= 6.5 % Specimen Performing Organization Address City/State/Zipcode Ph one Number [address] [address] LABORATORIES * MAMMOGRAPHY (01/05/2011) Mammogram normal per pt * COLONOSCOPY (12/23/2009) Colonoscopy normal documented in this encounter Visit Diagnoses Diagnosis Type 2 diabetes mellitus without compli cation (HCC) Hyperlipidemia Other and unspecified hyperlipidemia documented in this encounter
--- OUTSIDE RECORDS SUMMARY | 2019-11-28 22:38 | XMS REPORT | Encounter Summary ---
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 States it got worse today. Encounter Details Care Team Description Date Type Department Luciano Funes MD [address] [facility] [place] [address] [phone] Acute chest pain (Primary Dx); Essential hypertension 12/31/2015 Emergency [facility] [address] [place], [place] [id number] Social History Date Tobacco Use Types Packs/Day [...] Signs Reading Time Taken Comments Vital Sign 196/123 12/31/2015 3:16 PM CDT Blood Pressure 69 12/31/2015 3:16 PM CDT Pulse 36.7 C (98 F) 12/31/2015 2:01 PM CDT Temperature 11 12/31/2015 3:16 PM CDT Respiratory Rate 93% 12/31/2015 2:01 PM CDT Oxygen Saturation - - Inhaled Oxygen Concentration 99.3 kg (219 lb) 12/31/2015 2:01 PM CDT Weight 154.9 cm (5' 1") 12/31/2015 2:01 PM CDT Height 41.38 12/31/2015 2:01 PM CDT Body Mass Index documented in this encounter Discharge Instructions * Instructions* Luciano Funes MD - 12/31/2015 Chest Pain, Uncertain Cause Chest pain can happen for a number of reasons. Sometimes the cause can not be de termined. If yourcondition does not seem serious, and your pain does not appea r to be coming from your heart, your doctor may recommend watching it closely. S ometimes the signs of a serious problem take more time to appear. Therefore, lyle ch for the warning signs listed below. Home care After your visit, follow these recommendations: Rest today and avoid strenuous activity. Take any prescribed medicine as directed. Follow-up care Follow up with your doctor or this facility as instructed or if you do not start to feel better within 24 hours. Call 911 Get immediate medical attention if any of the following occur: A change in the type of pain: if it feels different, becomes more severe, las ts longer, or begins to spread into your shoulder, arm, neck, jaw or back Shortness of breath or increased pain with breathing Weakness, dizziness, or fainting Rapid heart beat Get prompt medical attention Call your doctor right away if any of the following occur: Cough with dark colored sputum (phlegm) or blood Fever of 100.4F(38C) or higher, or as directed by your health care prov ider Swelling, pain or redness in one leg [phone] [employer]. [address] [place] [address] 7. All rights reserved. This information is not intended as a substitute for pro fessional medical care. Always follow your healthcare professional's instruction s. documented in this encounter Medications at Time of Discharge Start Date End Date Medication Sig Dispensed Refills OXYGEN THERAPY 2 L/min as 0 needed. 02/14/2016 albuterol ( ACCUNEB) Take 1 ampule 0 1.25 mg/3 mL nebulizer by solution nebulization every 6 (six) hours as needed for wheezing. 12/20/2015 02/14/2016 albuterol (PROAIR HFA) 90 Inhale 1 puff 8 g 2 mcg/actuation HFA inhaler every 4 (four) hours as needed for wheezing. 09/24/2015 02/14/2016 amitriptyline (ELAVIL) 25 Take one 90 tablet 1 MG tablet tablet (25 mg total) by mouth nightly. 06/26/2016 aspirin 81 MG EC tablet Take 81 mg by 0 mouth daily. 09/24/2015 02/14/2016 citalopram (CELEXA) 20 MG Take one 90 tablet 1 tablet tablet (20 mg total) by mouth daily. 09/24/2015 07/02/2016 famotidine (PEPCID) 20 MG Take one 180 tablet 1 tablet tablet (20 mg total) by mouth 2 (two) times a day. 01/06/2016 fentaNYL (DURAGESIC) 50 Place 1 patch 0 mcg/hr patch on the skin every 72 hours. 09/24/2015 02/14/2016 fluticasone-vilanterol Inhale one 3 each 1 (BREO ELLIPTA) 200-25 puff daily. mcg/actuation INHALERIndications: maintenance therapy for asthma 09/24/2015 02/14/2016 gabapentin (NEURONTIN) Take one 270 capsule 1 300 MG capsule capsule [...] mL 31 x 5/16" diabetes Syrg E11.9 12/19/2015 02/14/2016 ipratropium-albuterol Inhale 3 mL 4 3 mL 30 (DUO-NEB) 0.5-3 mg/3 mL (four) times nebulizer a day. 12/24/2015 02/02/2016 LANTUS 100 unit/mL ADMINISTER 15 10 mL 0 injection UNITS UNDER THE SKIN EVERY EVENING 09/24/2015 02/14/2016 metoprolol tartrate Take one 180 tablet 1 (LOPRESSOR) 100 MG tablet tablet (100 mg total) by mouth 2 (two) times a day. 09/24/2015 02/14/2016 simvastatin (ZOCOR) 20 MG Take one 90 tablet 1 tablet tablet (20 mg total) by mouth nightly. documented as of this encounter Consult Notes * ChicagoLouisa esqueda RN - 12/31/2015 4:13 PM CDT Associated Order(s): IP CONSULT TO VASCULAR ACCESS TEAM Consult received for PIV. See IV flow sheet documented in this encounter ED Notes * Luciano Funes MD - 12/31/2015 3:16 PM CDT 12/31/2015 [facility] History Chief Complaint Patient presents with Chest pain Pt complains of left sided chest pain and tightness x5 days. States it got wor se today. Patient is a 65 y.o. female presenting with chest pain. The history is provided by the patient. Chest pain Pain location: L chest Pain quality: dull and tightness Pain radiates to: Upper back Pain radiates to the back: yes Pain severity: Moderate Onset quality: Gradual Duration: 5 days Timing: Intermittent Progression: Worsening Chronicity: New Context: at rest Context: no trauma Relieved by: Nothing Exacerbated by: Not exertional or pleuritic. Ineffective treatments: None tried Associated symptoms: back pain, diaphoresis, dizziness (lightheadedness), nausea and shortness of breath Associated symptoms: no abdominal pain, no cough, no fever, no lower extremity e yesy, no near-syncope, no numbness, no palpitations, no syncope, not vomiting an d no weakness Risk factors: diabetes mellitus, high cholesterol and hypertension Risk factors: no coronary artery disease and not male Past Medical History Diagnosis Date COPD (chronic obstructive pulmonary disease) Diabetes mellitus Hypertension Arthritis Hyperlipidemia Past Surgical History Procedure Laterality Date section, classic Cholecystectomy Hysterectomy Family History Problem Relation Age of Onset Cancer Mother Stroke Mother Cancer Father Stroke Father History Substance Use Topics Smoking status: Former Smoker Quit date: 09/14/2009 Smokeless tobacco: Never Used Alcohol Use: No Review of Systems Constitutional: Positive for diaphoresis. Negative for fever and chills. Respiratory: Positive for shortness of breath. Negative for cough. Cardiovascular: Positive for chest pain. Negative for palpitations, leg swelling , syncope and near-syncope. Gastrointestinal: Positive for nausea. Negative for vomiting and abdominal pain. Musculoskeletal: Positive for back pain. Negative for neck pain. Neurological: Positive for dizziness (lightheadedness) and light-headedness. Neg ative for syncope, weakness and numbness. All other systems reviewed and are negative. Physical Exam BP 176/92 mmHg | Pulse 69 | Temp(Src) 36.7 C (98 F) (Oral) | Resp 11 | Ht 1. 549 m (5' 1") | Wt 99.338 kg (219 lb) | BMI 41.40 kg/m2 | SpO2 93% Physical Exam Constitutional: She appears well-developed and well-nourished. No distress. HENT: Head: Normocephalic and atraumatic. Eyes: Conjunctivae are normal. No scleral icterus. Neck: Normal range of motion. No tracheal deviation present. Cardiovascular: Normal rate and regular rhythm. Exam reveals no friction rub. Pulmonary/Chest: Effort normal. No respiratory distress. She exhibits tenderness (Reproduction of chest pain with palpation). Abdominal: Soft. She exhibits no distension. There is no tenderness. Musculoskeletal: Normal range of motion. She exhibits no tenderness. Neurological: She is alert. Skin: Skin is warm and dry. She is not diaphoretic. No pallor. Psychiatric: She has a normal mood and affect. Her behavior is normal. Nursing note and vitals reviewed. EKG (interpreted by me): Sinus rhythm 70 bpm, QTC 445, normal axis, no stemi Chest x-ray (interpreted by me): No acute disease Results for orders placed or performed during the hospital encounter of 12/31/15 (from the past 24 hour(s)) Comprehensive Metabolic Panel Result Value Ref Range Sodium 142 133 - 147 MEQ/L Potassium 3.9 3.5 - 5.3 MEQ/L Chloride 97 96 - 112 MEQ/L Carbon Dioxide 35 (H) 20 - 32 MEQ/L Anion Gap 10 5 - 17 Calcium 9.0 8.4 - 10.5 mg/dL Glucose 87 70 - 100 mg/dL Protein Total Serum 8.3 (H) 6.0 - 8.2 g/dL Albumin 4.6 3.5 - 5.0 g/dL Alkaline Phosphatase 84 42 - 140 IU/L Alanine Aminotransferase 16 13 - 69 IU/L Aspartate Aminotransferase 26 15 - 46 IU/L Bilirubin Total 0.4 0.2 - 1.3 mg/dL Blood Urea Nitrogen 13 7 - 26 mg/dL Creatinine 0.8 0.4 - 1.1 mg/dL GFR Female AA 87 60 - 200 GFR Female Non-AA 72 60 - 200 CBC and Diff (manual diff if necessary) Result Value Ref Range WBC 10.31 4.00 - 11.00 TH/uL RBC 4.38 4.00 - 5.00 MIL/uL Hemoglobin 14.7 12.0 - 15.0 g/dL Hematocrit 43 36 - 45 % MCV 99 80 - 99 fL MCH 34 27 - 34 pg MCHC 34 32 - 36 % RDW 13.5 9.0 - 14.5 % Platelet Count 166 140 - 400 TH/uL MPV 9.6 9.4 - 12.3 fL %Segmented Neutrophils 52 45 - 78 % %Lymphocytes 35 15 - 47 % %Monocytes 9 0 - 12 % %Eosinophils 4 0 - 7 % %Basophils 0 0 - 2 % # Granulocytes 5.33 1.7 - 6.8 TH/uL # Lymphocytes 3.60 (H) 1.0 - 3.3 TH/uL # Monocytes 0.93 (H) 0.2 - 0.9 TH/uL # Eosinophils 0.41 (H) 0.0 - 0.4 TH/uL # Basophils 0.04 0.0 - 0.1 TH/uL Prothrombin Time/INR - ONLY if patient is on Warfarin Result Value Ref Range Protime 11.8 11.4 - 15.0 sec INR 0.9 0.8 - 1.2 Troponin Result Value Ref Range Troponin <0.01 0.00 - 0.03 ng/mL ED Course Procedures MDM Number of Diagnoses or Management Options Acute chest pain: Essential hypertension: Diagnosis management comments: Check EKG, chest x-ray, labs IV fentanyl 1615: Blood pressure still elevated but improved from previous. Discussed with patient findings and unclear etiology of symptoms. Reviewed with her that cardiac, vasc ular, pulmonary, and other serious etiologies are not fully excluded. Reviewed o ptions for care. Advised regarding considering admission for further evaluation. She voices clear understanding of all the above but politely declines admission. She agrees to at least contact her physician tomorrow. She also agrees to return if her symptoms persist, escalate, evolve, or any other concerns arise. She s tates she will see her physician later this week and have blood pressure reasses sed and possibly medications adjusted if appropriate. Amount and/or Complexity of Data Reviewed Clinical lab tests: ordered and reviewed Tests in the radiology section of CPT: reviewed and ordered Independent visualization of images, tracings, or specimens: yes Patient Progress Patient progress: improved ED Clinical Impression SNOMED CT(R) 1. Acute chest pain ACUTE CHEST PAIN 2. Essential hypertension ESSENTIAL HYPERTENSION Luciano Funes MD 01/01/16 1236 * Elias Strauss RN - 12/31/2015 3:12 PM CDT Pt states chest pain started 4 days ago, but she thought it was "just a gas bubb le." She states she has been belching and passing gas, but the pain is still the re. Pt states pain has been worsening. Pt states she has had numbness/tingling i n L arm, but especially in her R arm. Pt describes a "pulling sensation" when sh e tries to stretch out her R arm. 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 Pt states she has felt "queasy" for the last few days, but denies vomiting. Pt states she has had chest pain before that was pleurisy, but this pain feels different. * Zee Pedroza RN - 12/31/2015 2:42 PM CDT Vascular access here to place iv * Zee Pedroza RN - 12/31/2015 2:35 PM CDT Iv attempts x2 unsuccessful. Vascular acces nurse requested * Celso Kebede RN - 12/31/2015 2:03 PM CDT Pt complains of left sided chest pain and tightness x5 days. States it got worse today. documented in this encounter Plan of Treatment Care Team Description Date [place] [address] [place] [address] [phone] 02/29/2020 Office Visit Urology documented as of this encounter Procedures Comments Procedure Name Priority Date/Time Associated Diag nosis TROPONIN STAT 12/31/2015 2:59 PM CDT PROTHROMBIN TIME/INR STAT 12/31/2015 2:59 PM CDT COMPREHENSIVE METABOLIC STAT 12/31/2015 PANEL 2:59 PM CDT CBC AND DIFF (MANUAL DIFF STAT 12/31/2015 IF NECESSARY) 2:59 PM CDT XR CHEST SINGLE VIEW STAT 12/31/2015 FRONTAL 2:55 PM CDT PULSE OXIMETRY, STAT 12/31/2015 CONTINUOUS 2:37 PM CDT ECG STAT 12/31/2015 2:02 PM CDT documented in this encounter Results * Troponin (12/31/2015 2:59 PM CDT) Troponin <0.01 0.00 - 0.03 ng/mL [facility] Comment: [facility] Troponin Value [facility] Interpretation 0.00 - 0.03 Healthy 0.04 - 0.12 Increased Cardiac Risk >0.12 Myocardial Infarction Troponin may not become elevated until 6 to 8 hours after onset of symptoms. Specimen Blood Performing Organization Address City/State/Zipcode Ph one Number [facility] [address] [facility] [address] [facility] [address] [place] [facility] [place] [address], [facility] * Prothrombin Time/INR - ONLY if patient is on Warfarin (12/31/2015 2:59 PM CDT) Protime 11.8 11.4 - 15.0 sec [facility] INR 0.9 0.8 - 1.2 [facility] Specimen Blood Performing Organization Address City/State/Zipcode Ph one Number [facility] [address] [facility], [place] [id number] [facility] [address] [place] [address], [place] [phone] [facility] * CBC and Diff (manual diff if necessary) (12/31/2015 2:59 PM CDT) [facility] WBC 10.31 4.00 - 11.00 TH/uL [facility] Eug[place] [facility] RBC 4.38 4.00 - 5.00 MIL/uL [facility] Hemoglobin 14.7 12.0 - 15.0 g/dL [facility] Hematocrit 43 36 - 45 % [facility] MCV 99 80 - 99 fL [facility] MCH 34 27 - 34 pg [facility] MCHC 34 32 - 36 % [facility] RDW 13.5 9.0 - 14.5 % [facility] Platelet Count 166 140 - 400 TH/uL [facility] [facility] MPV 9.6 9.4 - 12.3 fL [facility] % Neutrophils 52 45 - 78 % [facility] %Lymphocytes 35 15 - 47 % [facility] %Monocytes 9 0 - 12 % [facility] %Eosinophils 4 0 - 7 % [facility] %Basophils 0 0 - 2 % [facility] # Granulocytes 5.33 1.7 - 6.8 TH/uL [facility] # Lymphocytes 3.60 (H) 1.0 - 3.3 TH/uL [facility] # Monocytes 0.93 (H) 0.2 - 0.9 TH/uL [facility] # Eosinophils 0.41 (H) 0.0 - 0.4 TH/uL [facility] # Basophils 0.04 0.0 - 0.1 TH/uL [facility] Specimen Blood Performing Organization Address City/State/Zipcode Ph one Number [facility] [address] [facility] [place] [address] [facility] [address] [place] [facility] [place] [address], [facility] * Comprehensive Metabolic Panel (12/31/2015 2:59 PM CDT) Sodium 142 133 - 147 MEQ/L [facility] Potassium 3.9 3.5 - 5.3 MEQ/L [facility] Chloride 97 96 - 112 MEQ/L [facility] Carbon Dioxide 35 (H) 20 - 32 MEQ/L [facility] Anion Gap 10 5 - 17 [facility] Calcium 9.0 8.4 - 10.5 mg/dL [facility] Glucose 87 70 - 100 mg/dL [facility] Protein Total 8.3 (H) 6.0 - 8.2 g/dL [facility] Serum [facility] Albumin 4.6 3.5 - 5.0 g/dL [facility] Alkaline 84 42 - 140 IU/L [facility] Phosphatase [facility] Alanine 16 13 - 69 IU/L [facility] Aminotransferas [facility] Aspartate 26 15 - 46 IU/L [facility] Aminotransferas [facility] Bilirubin Total 0.4 0.2 - 1.3 mg/dL [facility] Blood Urea 13 7 - 26 mg/dL [facility] Nitrogen [facility] Creatinine 0.8 0.4 - 1.1 mg/dL [facility] eGFR Female AA 87 60 - 200 [facility] Comment: [facility] Chronic Kidney Disease less [facility] than 60 mL/min/1.73 sq.m Kidney failure less than 15 mL/min/1.73 sq.m eGFR Female 72 60 - 200 [facility] Non-AA Comment: [facility] Chronic Kidney Disease less [facility] than 60 mL/min/1.73 sq.m Kidney failure less than 15 mL/min/1.73 sq.m Specimen Blood Performing Organization Address City/State/Zipcode Ph one Number [facility] [address] [facility] [place] [address] [facility] [address] [place] [address], [facility] * XR Chest single view frontal (12/31/2015 2:55 PM CDT) Specimen Impressions Performed At IMPRESSION: LEVI No acute cardiopulmonary process. ATTESTATION STATEMENT: The Staff Radiologist has personally re viewed the images and dictated, reviewed, or edited the final report. READING SITE: [facility] The Staff Radiologist has personally re viewed the images and dictated, reviewed, or edited the final report. Narrative Performed At Patient: ISIAH BENÍTEZ Sex#: F # [id number] Jose#: [id number] Location: [facility] - Procedure Requested: [id number] XR CHEST SINGLE VIEW FRONTAL Reason for Exam: Chest Pain Exam Ordered: 12/31/2015 14 38 Check-in Date/Time: 12/31/2015 1455 XR CHEST SINGLE VIEW FRONTAL INDICATION: Chest Pain. COMPARISON STUDY: 09/14/2015. FINDINGS: Lungs: The lung volume is normal. Stabl e left midlung linear subsegmental atelectasis/scarring. No f ocal airspace disease. Normal pulmonary vasculature. Pleura: No pleural effusion or pneumoth orax. Heart and Mediastinum: The cardiomedias tinal silhouette and great vessels are stable. Bones: Stable regional skeleton. Procedure Note Interface, Rad Results In - 12/31/2015 3:14 PM CDT Patient: ISIAH BENÍTEZ Sex#: F # [id number] Jose#: [id number] Location: [facility] ED SED-21 Procedure Requested: [id number] XR CHEST SINGLE VIEW FRONTAL Reason for Exam: Chest Pain Exam Ordered: 12/31/2015 1438 Check-in Date/Time: 12/31/2015 1455 XR CHEST SINGLE VIEW FRONTAL INDICATION: Chest Pain. COMPARISON STUDY: 09/14/2015. FINDINGS: Lungs: The lung volume is normal. Stable left midlung linear subsegmental atelectasis/scarring. No focal airspace disease. Normal pulmonary vasculature. Pleura: No pleural effusion or pneumothorax. Heart and Mediastinum: The cardiomediastinal silhouette and great vessels are stable. Bones: Stable regional skeleton. IMPRESSION: No acute cardiopulmonary process. ATTESTATION STATEMENT: The Staff Radiologist has personally reviewed the images and dictated, reviewed, or edited the final report. READING SITE: [facility] The Staff Radiologist has personally reviewed the images and dictated, reviewed, or edited the final report. Performing Organization Address City/[facility] Ph one Number [email or web address] * Electrocardiogram (ECG) (12/31/2015 2:02 PM CDT) Specimen Narrative Performed At [facility] ED Test Date: 2015-12-31 Pat Name: ISIAH BENÍTEZ Department: ERS Room: Gender: Female Network Operations Lead: [id number] : 1950 Requested By: LUCIANO FUNES Order Number: [id number] Reading MD: Zackary Lamb Measurements Intervals [place] Rate: 70 P: 43 SD: 140 QRS: 50 QRSD: 100 T: 55 QT: 412 QTc: 445 Interpretive Statements SINUS RHYTHM Compared to ECG 09/14/2015 05:33:24 No significant changes Electronically Signed On 01-01-2016 10:1 5:58 CDT by Zackary Lamb Performing Organization Address City/[facility] Ph one Number [email or web address] documented in this encounter Visit Diagnoses Diagnosis Acute chest pain Unspecified chest pain Essential hypertension Unspecified essential hypertension documented in this encounter Administered Medications Action Date Dose Rate Site Medication Order MAR Action 12/31/2015 2:41 PM CDT 324 mg aspirin chewable tablet 324 mg Given 324 mg, Oral, Once, 12/31/15 at 1439 , For 1 dose, If not given/taken WIRE DRAWER and chart., 12/31/2015 3:04 PM CDT 50 mcg fentaNYL (SUBLIMAZE) 50 mcg/mL injection Given 50 mcg 50 mcg, Intravenous, Once, Wed12/31/15 at 1504, For 1 dose 12/31/2015 3:47 PM CDT 15 mg ketorolac (TORADOL) injection 15 mg Given 15 mg, Intravenous, Once, 12/31/15 a t 1548, For 1 dose documented in this encounter
--- OUTSIDE RECORDS SUMMARY | 2019-11-28 22:38 | XMS REPORT | Encounter Summary ---
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 Reminder (10/2015 06:56 PM) Phone Call - Message Delivered (N=Answered - Entire Message) Encounter Details Care Team Description Date Type Department Adelaida Olivas MD [address] [facility] [address] [place] [address] [phone] 01/28/2016 Hist-Appointmen [facility] 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
--- OUTSIDE RECORDS SUMMARY | 2019-11-28 22:38 | XMS REPORT | Encounter Summary ---
Author Author [facility] Organization [facility] Address Unknown Phone Unavailable Care Team Providers Care Wreath And Garland Maker Hand Name Role Phone Ebony Sharp MD PCP Encounter Details Care Team Description Date Type Department Ebony Sharp MD [address] [facility] [address] [place], [place] [id number] 02/17/2016 [address] [facility] [address] [facility] [address] [place], [place] [id number] Social History Date Tobacco Use Types Packs/Day [...] Telephone Encounter - Jani Schultz LPN - 03/03/2016 10:23 AM CDT ERROR documented in this encounter Plan of Treatment Care Team Description Date [place] [address] [place] [address] [phone] 02/29/2020 Office Visit Urology documented as of this encounter Visit Diagnoses Not on filedocumented in this encounter
--- OUTSIDE RECORDS SUMMARY | 2019-11-28 22:38 | XMS REPORT | Encounter Summary ---
Author Author [facility] Organization [facility] Address Unknown Phone Unavailable Care Team Providers Care Cafe Operator Name Role Phone Ebony Sharp MD PCP Encounter Details Care Team Description Date Type Department Adelaida Olivas MD [address] [facility] [address] [place] [address] [phone] 02/18/2016 Hist-Other [facility] [address] [place] [address] Social History Date Tobacco Use Types Packs/Day [...] Description Date [place] [address] [place] [address] [phone] 02/29/2020 Office Visit Urology documented as of this encounter Procedures Comments Procedure Name Priority Date/Time Associated Diag nosis XR ANKLE Routine 02/18/2016 11:22 AM CDT documented in this encounter Results * XR Ankle (02/18/2016 11:22 AM CDT) Specimen Performing Organization Address City/State[facility] Ph one Number [facility] documented in this encounter Visit Diagnoses Not on filedocumented in this encounter Additional Health Concerns Resolved Time Infection Noted Time 04/19/2018 12:13 PM CDT Influenza 08/30/2017 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
--- OUTSIDE RECORDS SUMMARY | 2019-11-28 22:38 | XMS REPORT | Encounter Summary ---
Author Author [facility] Organization [facility] Address Unknown Phone Unavailable Care Team Providers Care Psychiatric Therapist Name Role Phone Ebony Sharp MD PCP Encounter Details Care Team Description Date Type Department Adelaida Olivas MD [address] [facility] [address] [place], [place] [id number] 02/18/2016 Hist-Transcript [facility] Orthopaedi c ion Encounter Specialists [address] [facility] [address] [place], [place] [id number] Social History Date Tobacco Use Types Packs/Day Years Used Quit: 09/14/2009 Former Smoker Smokeless Tobacco: Never Used Drinks/Week oz/Week Comments Alcohol Use No Sex Assigned at Date Recorded Female Industry Job Start Date Occupation Not on file Not on file Not on file Travel End Travel History Travel Start No recent travel history available. documented as of this encounter Progress Notes * Juarze Noble - 02/18/2016 11:55 AM CDT - History of Present Illness Presents today for evaluation of her lower extremity. Still has tenderness on he r 3rd toe. She has been doing well in her boot. Past Medical History High Blood Pressure Arthritis [...] and concur with the histories collected on 02/18/2016. -Adelaida Olivas MD, February 18, 2016 11:32 AM Vital Signs Ht: 60 in. Wt: 224 lbs. T: 97.6 deg F. T site: tympanic BMI: 43.91 She was encourage to talk with her primary care provider about weight management . BP: 08/23 Examination Physical examination reveals a pleasant 65-year-old woman with improved tenderne ss to palpation throughout the course of her left third toe. Her skin is otherw ise intact. She is able to plantar flex and dorsiflex her foot with minimal com plaints of pain. Radiographic Studies X-ray examination does not demonstrate any overt evidence of bony subluxation. She has a healing third toe fracture. Impression Status post distal phalanx fracture, third toe. Plan At this point, we will plan to allow her to be weightbearing as tolerated. We d id discuss potential for bone density scan in the future. . I would like her to return in 6 weeks and obtain a weight bearing x-ray of their left foot. Orders from current office visit: Ankle x-ray 2 views Foot x-ray 3+ views Post Op Shoe PQRS 128a PQRS 317n PQRS 130 [id number] DEXA BONE DENSITY STUDY * Signed by Adelaida Olivas MD on February 19, 2016 at 12:08 PM X-Ray Report X-ray examination does not demonstrate any overt evidence of bony subluxation. She has a healing third toe fracture. documented in this encounter Plan of Treatment Care Team Description [place] [address] [place] [address] [phone] 02/29/2020 Office Visit Urology documented as of this encounter Visit Diagnoses Not on filedocumented in this encounter Additional Health Concerns Resolved Time Infection Noted Time 04/19/2018 12:13 PM CDT Influenza 08/30/2017 10:13 AM PREMIX OPERATOR CONCENTRATE 08/30/2019 1:09 PM PREMIX OPERATOR CONCENTRATE Influenza - Rule Out 08/30/2019 11:32 AM PREMIX OPERATOR CONCENTRATE 09/17/2019 8:17 AM PREMIX OPERATOR CONCENTRATE RSV 08/31/2019 6:35 PM PREMIX OPERATOR CONCENTRATE documented as of this encounter
--- OUTSIDE RECORDS SUMMARY | 2019-11-28 22:38 | XMS REPORT | Encounter Summary ---
Author Author [facility] Organization [facility] Address Unknown Phone Unavailable Care Team Providers Care Pie Icer Machine Name Role Phone Ebony Sharp MD PCP Encounter Details Care Team Description Date Type Department Ebony Sharp MD [address] [facility] [address] [place] [address] [phone] Type 2 diabetes mellitus without complic ation (HCC) (Primary Dx) 01/06/2016 Lab [facility] Primar y Care - [facility] [address] [facility] [address] [facility], [place] [id number] Social History Date Tobacco Use Types Packs/Day [...] Description Date [place] [address] [place] [address] [phone] 02/29/2020 Office Visit Urology documented as of this encounter Procedures Comments Procedure Name Priority Date/Time Associated Diag nosis LAB SUMMARY 01/10/2016 11:00 AM CDT HEMOGLOBIN A1C Routine 01/06/2016 Type 2 diabetes mellitus 12:50 PM CDT without complication (HCC) documented in this encounter Results * LAB SUMMARY (01/10/2016 11:00 AM CDT) Narrative Performed At This result has an attachment that is n ot available. Ordered by an unspecified provider. * Hemoglobin A1C (01/06/2016 12:50 PM CDT) Hemoglobin A1C 6.6 (H) 4.0 - 5.6 % [facility] Comment: REGIONAL Non-diabetic 4.0 - LABORATORIES 5.6 % Prediabetes 5.7 - 6.4 % Diabetes >= 6.5 % Specimen Performing Organization Address City/State/Zipcode Ph one Number [facility] [address] [address] LABORATORIES documented in this encounter Visit Diagnoses Diagnosis Type 2 diabetes mellitus without compli cation (HCC) documented in this encounter
--- OUTSIDE RECORDS SUMMARY | 2019-11-28 22:38 | XMS REPORT | Encounter Summary ---
Author Author [facility] Organization [facility] Address Unknown Phone Unavailable Care Team Providers Care Nailer Hand Name Role Phone Ebony Sharp MD PCP Encounter Details Care Team Description Date Type Department Adelaida Olivas MD [address] [facility] [address] [place] [address] [phone] 02/18/2016 Hist-Other [facility] [address] [place] [address] Social History Date Tobacco Use Types Packs/Day [...] Description Date [place] [address] [place] [address] [phone] 02/29/2020 Office Visit Urology documented as of this encounter Procedures Comments Procedure Name Priority Date/Time Associated Diag nosis XR FOOT Routine 02/18/2016 11:21 AM CDT documented in this encounter Results * XR Foot (02/18/2016 11:21 AM CDT) Specimen Performing Organization Address City/State/Zipcode Ph one Number L[facility] documented in this encounter Visit Diagnoses Not on filedocumented in this encounter Additional Health Concerns Resolved Time Infection Noted Time 04/19/2018 12:13 PM CDT Influenza 08/30/2017 10:13 AM BEHAVIORAL ASSISTANT documented as of this encounter
--- OUTSIDE RECORDS SUMMARY | 2019-11-28 22:38 | XMS REPORT | Encounter Summary ---
Author Author [facility] Organization [facility] Address Unknown Phone Unavailable Care Team Providers Care Group Insurance Special Agent Name Role Phone Ebony Sharp MD PCP Encounter Details Care Team Description Date Type Department Adelaida Olivas MD [address] [facility] [address] [place] [address] [phone] 01/28/2016 Hist-Other [facility] [address] [place] [address] Social History Date Tobacco Use Types Packs/Day [...] Description Date [place] [address] [place] [address] [phone] 02/29/2020 Office Visit Urology documented as of this encounter Procedures Comments Procedure Name Priority Date/Time Associated Diag nosis XR ANKLE LEFT Routine 01/28/2016 2:30 PM CDT documented in this encounter Results * XR Ankle left (01/28/2016 2:30 PM CDT) Specimen Performing Organization Address City[facility]State[facility] Ph [facility] Number [facility] documented in this encounter Visit Diagnoses Not on filedocumented in this encounter Additional Health Concerns Resolved Time Infection Noted Time 04/19/2018 12:13 PM CDT Influenza 08/30/2017 10:13 AM CHILDCARE DIRECTOR documented as of this encounter
--- OUTSIDE RECORDS SUMMARY | 2019-11-28 22:38 | XMS REPORT | Encounter Summary ---
Author Author [facility] Organization [facility] Address Unknown Phone Unavailable Care Team Providers Care Collection Support Specialist Name Role Phone Ebony Sharp MD PCP Reason for Visit * Reason Comments Toe Injury Pt got up in the night and stubbed her middle toe on the lt foot, toe is bruised and painful Encounter Details Care Team Description Date Type Department Toe fracture, left, closed, initial encounter (Primary Dx) 01/26/2016 Emergency [facility] [address] [place] [address] Social History Date Tobacco Use Types Packs/Day [...] Signs Reading Time Taken Comments Vital Sign 165/97 01/26/2016 2:09 PM CDT Blood Pressure 87 01/26/2016 2:09 PM CDT Pulse 36.7 C (98.1 F) 01/26/2016 12:21 PM CDT Temperature 18 01/26/2016 2:09 PM CDT Respiratory Rate 97% 01/26/2016 2:09 PM CDT Oxygen Saturation - - Inhaled Oxygen Concentration 101.6 kg (224 lb) 01/26/2016 12:21 PM CDT Weight 152.4 cm (5') 01/26/2016 12:21 PM CDT Height 43.75 01/26/2016 12:21 PM CDT Body Mass Index documented in this encounter Discharge Instructions * Instructions* Sheryl Warner RN HEALTH EDUCATION ASSISTANT-C - 01/26/2016 Closed Toe Fracture Your big toe is broken (fractured). This causes local pain, swelling, and bruisi ng. This injury takes about 4 weeks to heal. Toe injuries are often treated by t aping the injured toe to the next one (aba taping). This protects the injured toe and holds it in position. If the toenail has been severely injured, it may fall off in 1 to 2 weeks. It ta kes up to 12 months for a new toenail to grow back. Home care Follow these guidelines when caring for yourself at home: You may be given a cast shoe to wear to keep your toe from moving. If not, yo u can use a sandal or any shoe that doesnt put pressure on the injured toe un til the swelling and pain go away. If using a sandal, be careful not to strike y our foot against anything. Another injury could make the fracture worse. If you were given crutches, dont put full weight on the injured foot until you can d o so without pain. Keep your foot elevated to reduce pain and swelling. When sleeping, put a pil low under the injured leg. When sitting, support the injured leg so it is level with your waist. This is very important during the first 2 days (48 hours). Put an ice pack on the injured area. Do this for 20 minutes every 1 to 2 hour s the first day for pain relief. You can make an ice pack by wrapping a plastic bag of ice cubes in a thin towel. Continue using the ice pack 3 to 4 times a day for the next 2 days. Then use the ice pack as needed to ease pain and swelling. If aba tape was used and it becomes wet or dirty, change it. You may replac e it with paper, plastic, or cloth tape. Cloth tape and paper tapes must be kept dry. You may use acetaminophen or ibuprofen to control pain, unless another pain m edicine was prescribed. If you have chronic liver or kidney disease, talk with y our health care provider before using these medicines. Also talk with your provi alfreda if youve had a stomach ulcer or GI bleeding. You may return to sports or physical education activities after 4 weeks, or w hen you can run without pain. Follow-up care Follow up with your health care provider in 1 week, or as advised. This is to ma ke sure the bone is healing the way it should. If X-rays were taken, a radiologist will look at them. You will be told of any n ew findings that may affect your care. When to seek medical advice Call your health care provider right away if any of these occur: Pain or swelling gets worse The cast cracks The cast and padding get wet and stays wet more than 24 hours Bad odor from the cast or wound fluid stains the cast Tightness or pressure under the cast gets worse Toe becomes cold, blue, numb, or tingly You cant move the toe Signs of infection: fever, redness, warmth, swelling, or drainage from the wo undor cast Fever [id number] (38.3C)or higher, or as directed by your health care pro vider [id number] [employer]. [address] [place] [address] 042 7. All rights reserved. This information is [...] tablet (25 mg total) by mouth nightly. 01/06/2016 02/14/2016 amLODIPine (NORVASC) 2.5 Take 1 tablet 90 tablet 1 MG tablet (2.5 mg total) by mouth [...] 2 (two) times a day. 09/24/2015 02/14/2016 fluticasone-vilanterol Inhale one 3 each [...] Do not drive while taking this medication. 01/26/2016 02/14/2016 HYDROcodone-acetaminophen Take 1 tablet 8 tablet 0 (NORCO) 5-325 mg per by mouth tabletIndications: pain every 6 (six) hours as needed for [...] as of this encounter ED Notes * Sheryl Warner RN FNP-C - 01/26/2016 12:29 PM CDT 01/26/2016 [facility] History Chief Complaint Patient presents with Toe Injury Pt got up in the night and stubbed her middle toe on the lt foot, toe is bruis ed and painful Patient is a 65 y.o. female presenting with leg pain. The history is provided by the patient. Leg pain Location: Toe Time since incident: 12 hours Injury: yes Mechanism of injury comment: Hit her toe on the bedpost on her way to the bathr oom at 3:00 in the morning. Toe location: L third toe Pain details: Quality: Sharp and throbbing Radiates to: Does not radiate Severity: Moderate Onset quality: Sudden Duration: 12 hours Timing: Constant Progression: Unchanged Chronicity: New Dislocation: no Foreign body present: No foreign bodies Prior injury to area: No Relieved by: Nothing Worsened by: Activity and bearing weight Ineffective treatments: She took one of her hydrocodone that she takes for chron ic pain with no relief in her toe pain. Associated symptoms: swelling Associated symptoms: no back pain, no decreased ROM, no fatigue, no fever, no it radha, no muscle weakness, no neck pain, no numbness, no stiffness and no tingli ng Risk factors: no concern for non-accidental trauma, no frequent fractures, no kn own bone disorder and no recent illness Past Medical History Diagnosis Date COPD (chronic obstructive pulmonary disease) Diabetes mellitus Hypertension Arthritis Hyperlipidemia Past Surgical History Procedure Laterality Date section, classic Cholecystectomy Hysterectomy Family History Problem Relation Age of Onset Cancer Mother Stroke Mother Cancer Father Stroke Father History Substance Use Topics Smoking status: Former Smoker Quit date: 09/14/2009 Smokeless tobacco: Never Used Alcohol Use: No Review of Systems Constitutional: Negative for fever and fatigue. Musculoskeletal: Negative for back pain, stiffness and neck pain. Skin: Negative for itching. All other systems reviewed and are negative. Physical Exam BP 165/97 mmHg | Pulse 87 | Temp(Src) 36.7 C (98.1 F) (Oral) | Resp 18 | Ht 1.524 m (5') | Wt 101.606 kg (224 lb) | BMI 43.75 kg/m2 | SpO2 97% Physical Exam Constitutional: She is oriented to person, place, and time. She appears well-dev eloped and well-nourished. No distress. HENT: Head: Normocephalic and atraumatic. Eyes: Conjunctivae are normal. Pupils are equal, round, and reactive to light. Neck: Normal range of motion. Neck supple. Cardiovascular: Normal rate and regular rhythm. Pulmonary/Chest: Effort normal. Abdominal: Soft. Musculoskeletal: Normal range of motion. She exhibits no edema or tenderness. Left ankle: Normal. Left foot: There is bony tenderness and swelling. There is normal range of motion, normal capillary refill, no crepitus, no deformity and no laceration. Feet: Neurological: She is alert and oriented to person, place, and time. No cranial n erve deficit. Coordination normal. Skin: Skin is warm and dry. No rash noted. She is not diaphoretic. Psychiatric: She has a normal mood and affect. Her behavior is normal. Nursing note and vitals reviewed. ED Course Procedures No results found for this or any previous visit (from the past 24 hour(s)). XR Foot min 3 views left Final Result IMPRESSION: Acute, mildly displaced fracture of the medial aspect of the third distal phalanx with probable intra-articular extension into the third DIP. ATTESTATION STATEMENT: The Staff Radiologist has personally reviewed this study and agrees with the findings in this report. READING SITE: [facility] The Staff Radiologist has personally reviewed the images and dictated, reviewed, or edited the final report. Filed VS 01/26/16 1221 01/26/16 1409 BP: 155/122 165/97 Pulse: 92 87 Temp: 36.7 C (98.1 F) Resp: 20 18 SpO2: 98% 97% Medications HYDROcodone-acetaminophen (NORCO) 5-325 mg per tablet 1 tablet (1 tablet Oral Gi paxton 01/26/16 1252) I have reviewed all of the labs and radiology studies with the patient. Discuss ed ability to aba tape the toe. Patient currently declines. Postop shoe prov ided for comfort. A prescription for 8 [place] was provided, in addition to her c hronic [place] that she takes at home. She can also take ibuprofen as needed for pain and swelling. She was instructed to follow up with orthopedics for reevalu ation. She'll return to the emergency department for new or worsening symptoms or concerns. [facility] ED Clinical Impression SNOMED CT(R) 1. Toe fracture, left, closed, initial encounter FRACTURE OF PHALANX OF FOOT Sheryl Warner RN HEALTH EDUCATION ASSISTANT-C 01/26/16 0491 * Gio Magaña RN - 01/26/2016 12:21 PM CDT Pt got up in the night and stubbed her middle toe on the lt foot, toe is bruised and painful documented in this encounter Plan of Treatment Care Team Description Date [place] [address] [place] [address] [phone] 02/29/2020 Office Visit Urology documented as of this encounter Procedures Comments Procedure Name Priority Date/Time Associated Diag nosis XR FOOT MIN 3 VIEWS LEFT STAT 01/26/2016 12:45 PM CDT documented in this encounter Results * XR Foot min 3 views left (01/26/2016 12:45 PM CDT) Specimen Impressions Performed At IMPRESSION: [facility] Acute, mildly displaced fracture of the medial aspect of the third distal phalanx with probable intra-tavo cular extension into the third DIP. ATTESTATION STATEMENT: The Staff Radiol ogist has personally reviewed this study and agrees with the findings in this report. READING SITE: [facility] The Staff Radiologist has personally re viewed the images and dictated, reviewed, or edited the final report. Narrative Performed At Patient: ISIAH BENÍTEZ Sex#: F # [id number] Jose#: [id number] Location: [place] [address] Procedure Requested: [id number] XR FOOT MIN 3 VIEWS LEFT Reason for Exam: foot pain Exam Ordered: 01/26/2016 123 2 Check-in Date/Time: 01/26/2016 1246 XR FOOT MIN 3 VIEWS LEFT (AP, lateral, and oblique views): DATE: 01/26/2016 12:46 PM INDICATION: Pt got up in the night an d stubbed her middle toe on the lt foot, toe is bruised and painful COMPARISON: None. FINDINGS: Soft tissue swelling about th e third digit. Acute mildly displaced fracture of the medial aspect of the third distal phalanx with probable intra-articular extension into the third DIP. Chronic healed fracture deformity of the distal fibula . Screw track in the fibular head, likely from prior surgical fixati on. Well-formed dorsal and plantar calcaneal enthesophytes. Mild m idfoot and first MTP degenerative arthrosis. Procedure Note Interface, Rad Results In - 01/26/2016 1:22 PM CDT Patient: ISIAH BENÍTEZ Sex#: Paulina # [id number] Jose#: [id number] Location: [facility] ED SED-27 Procedure Requested: [id number] XR FOOT MIN 3 VIEWS LEFT Reason for Exam: foot pain Exam Ordered: 01/26/2016 1232 Check-in Date/Time: 01/26/2016 1246 XR FOOT MIN 3 VIEWS LEFT (AP, lateral, and oblique views): DATE: 01/26/2016 12:46 PM INDICATION: Pt got up in the night and stubbed her middle toe on the lt foot, toe is bruised and painful COMPARISON: None. FINDINGS: Soft tissue swelling about the third digit. Acute mildly displaced fracture of the medial aspect of the third distal phalanx with probable intra-articular extension into the third DIP. Chronic healed fracture deformity of the distal fibula. Screw track in the fibular head, likely from prior surgical fixation. Well-formed dorsal and plantar calcaneal enthesophytes. Mild midfoot and first MTP degenerative arthrosis. IMPRESSION: Acute, mildly displaced fracture of the medial aspect of the third distal phalanx with probable intra-articular extension into the third DIP. ATTESTATION STATEMENT: The Staff Radiologist has personally reviewed this study and agrees with the findings in this report. READING SITE: [facility] The Staff Radiologist has personally reviewed the images and dictated, reviewed, or edited the final report. Performing Organization Address City/State/[facility] Ph one Number LEVI documented in this encounter Visit Diagnoses Diagnosis Toe fracture, left, closed, initial enc ounter documented in this encounter Administered Medications Action Date Dose Rate Site Medication Order MAR Action 01/26/2016 12:52 PM CDT 1 tablet HYDROcodone-acetaminophen (NORCO) 5-325 Given mg per tablet 1 tablet 1 tablet, Oral, Once, 01/26/16 at 1235, For 1 dose, Do not exceed 4 GM/DA Y of acetaminophen. If 65 or older do no t exceed 3 GM/DAY. If chronic alcoholic d o not exceed 2 GM/DAY., documented in this encounter
--- OUTSIDE RECORDS SUMMARY | 2019-11-28 22:38 | XMS REPORT | Encounter Summary ---
Author Author [facility] Organization [facility] Address Unknown Phone Unavailable Care Team Providers Care Childcare Center Director Name Role Phone Ebony Sharp MD PCP Reason for Visit * Reason Comments Follow-up eldon left ankle // sm 01/27TVX: Appt. Reminder (02/14/2016 06:40 PM) Phone Call - Responded "Yes" (Y=Answere d - Yes) Encounter Details Care Team Description Date Type Department Adelaida Olivas MD [address] [facility] [address] [place] [address] [phone] 02/18/2016 [facility] [address] [facility] [address] [place] [address] Social History Date Tobacco Use Types Packs/Day [...] Description Date [place] [address] [place] [address] [phone] 02/29/2020 Office Visit Urology documented as of this encounter Visit Diagnoses Not on filedocumented in this encounter Additional Health Concerns Resolved Time Infection Noted Time 04/19/2018 12:13 PM CDT Influenza 08/30/2017 10:13 AM CUSTOMER SALES SERVICE MANAGER documented as of this encounter
--- OUTSIDE RECORDS SUMMARY | 2019-11-28 22:38 | XMS REPORT | Encounter Summary ---
Author Author [facility] Organization [facility] Address Unknown Phone Unavailable Care Team Providers Care Branch Service Associate Name Role Phone Ebony Sharp MD PCP Reason for Referral * Sleep Study (Routine) Referred By Contact Referred To Contact Status Reason Specialty Diagnoses / Procedures Medardo Radford MD [address] [facility] [address] [place] [address] [facility] [address] [place] [address] Closed Sleep Medicine Diagnoses SASHA (obstructive sleep apnea) Iron deficiency Goldberg-Ekbom syndrome Parasomnia P rocedures Split Night Sleep Study Reason for Visit * Reason Comments Sleep Apnea Encounter Details Care Team Description Date Type Department Medardo Radford MD [address] [facility] [address] [place], [place] [id number] SASHA (obstructive sleep apnea) (Primary D x); Iron deficiency; Goldberg-Ekbom syndrome; Parasomnia 02/21/2016 Initial consult [facility] [address] [facility] [address] [place], [place] [id number] Social History Date Tobacco Use Types Packs/Day [...] Signs Reading Time Taken Comments Vital Sign 149/94 02/21/2016 1:09 PM CDT Blood Pressure 73 02/21/2016 1:09 PM CDT Pulse - - Temperature 16 02/21/2016 1:09 PM CDT Respiratory Rate 95% 02/21/2016 1:09 PM CDT Oxygen Saturation - - Inhaled Oxygen Concentration 104.8 kg (231 lb) 02/21/2016 1:09 PM CDT Weight 157.5 cm (5' 2") 02/21/2016 1:09 PM CDT Height 42.25 02/21/2016 1:09 PM CDT Body Mass Index documented in this encounter Progress Notes * Medardo Radford MD - 02/21/2016 1:19 PM CDT OUTPATIENT SLEEP CONSULT NOTE DATE: 02/21/2016 PATIENT NAME: Caern Patten : 1950 AGE: 65 y.o. REASON FOR CONSULT: Evaluation of sleep apnea CONSULT REQUESTED BY: No att. providers found PCP: Ebony Sharp MD HISTORY OF PRESENT ILLNESS: I had the pleasure of seeing your patient Caren aPtten, date of , today in sleep consultation. I have done a complete review of systems also in the electronic medical record.I have reviewed the Past, Social and Family histo helena on this patient and they have been documented in the electronic medical rec ord. Caren came to this appointment alone. Caren is a 65 y.o.-year-old female presenting for evaluation of sleep apnea. Pat bhupindercarlo does not use CPAP or BiPAP, and has no prior history of SASHA. She generally feels very tired, and daytime hypersomnia is minimal with [place] Sleepiness Sca le score of 4/24. Secondary to morbid obesity, and excess weight gain, she is be ing considered for bariatric surgery. She is here in part for this purpose. She has probably gained a minimum of 80 pounds over the past 10 years. She reports s uperimposing depression and anxiety, in part secondary to sudden loss of her hus band when he was 65, back in year 2000, and more recently her daughter is having major neurological issues including stroke, and dysrhythmia. 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 Snoring is present, and disturbing to others with accompanied by interm ittent arousals. Reports arousals/awakenings with gasp, feeling short of breath, or choking, observed apneic events, dry mouth in the morning, and morning heada thad. Otherwise, she seems to have a reasonably good sleep hygiene. She goes to b ed at the same time on weekdays and weekends. Wakeup time is around 6:30 AM. She gets about 8-9 hours of sleep. Average sleep latency is prolonged, 90 minutes. She urinates about 3 times per night, but she is able to go back to sleep within 5-10 minutes. She does not feel refreshed upon awakening. Patient denies any a ssociated sudden muscle weakness caused by laughter or strong emotion, inability to move while falling sleep or waking up, automatic behavior, and dreaming while awake. Next, Patient denies any associated sleep-related behavior such as wa lking, yelling out, eating, and acting out dreams; however, she talks in her sle ep. Moreover, Patient denies any associated difficult to describe discomfort in lower limbs, urge to move legs secondary to somatosensory symptoms, resoluti on of somatosensory symptoms with movement, aggravation of somatosensory symptom s with inactivity or rest, worsening of symptoms in the evening and/or when in bed. She admits to some caffeine use including coffee, and soda. She has prior history of iron deficiency, but at the present time, she is not taking any oral supplementation. She was diagnosed with diabetes in 2009. She has prior history of COPD secondary to smoking, one third pack per day 20 years, and quit in 11 06. She has no prior sleep study. No additional concerns are voiced at this time . REVIEW OF SYSTEMS: Review of Systems Respiratory: Positive for shortness of breath and wheezing. Cardiovascular: Positive for chest pain. Musculoskeletal: Positive for myalgias and back pain. Neurological: Positive for tingling, sensory change, weakness and headaches. Endo/Heme/Allergies: Bruises/bleeds easily. Psychiatric/Behavioral: Positive for depression. The patient is nervous/anxious. All other systems reviewed and are negative. Other positive symptoms include: Weight gain, ear pain, vertigo, postnasal drip, seasonal allergies, dry mouth, dry throat, coughing, leg cramps, poor balance, use assistive devices for ambulation, heat intolerance, irritability, nervousnes s, and mood changes. Past Medical History Diagnosis Date COPD (chronic obstructive pulmonary disease) Diabetes mellitus Hypertension Arthritis Hyperlipidemia Past Surgical History Procedure Laterality Date section, classic Cholecystectomy Hysterectomy History Social History Marital Status: Single Spouse Name: N/A Number of Children: N/A Years of Education: N/A Occupational History Not on file. Social History Main Topics Smoking status: Former Smoker Quit date: 09/14/2009 Smokeless tobacco: Never Used Alcohol Use: No Drug Use: No Sexual Activity: No Other Topics Concern Not on file Social History Narrative Family History Problem Relation Age of Onset Cancer Mother Stroke Mother Cancer Father Stroke Father Allergies: Lisinopril; Metformin; and Sulfa (sulfonamide antibiotics) CURRENT ACTIVE MEDICATIONS: Medication List These changes are accurate as of: 02/21/16 1:20 PM. If you have any questions, a sk your nurse or doctor. CONTINUE taking these medications albuterol 90 mcg/actuation HFA inhaler Commonly known as: PROAIR HFA 1 puff, Inhalation, Every 4 hours PRN amitriptyline 25 MG tablet Commonly known as: ELAVIL 25 mg, Oral, Nightly amLODIPine 2.5 MG tablet Commonly known as: NORVASC 2.5 mg, Oral, Daily, Take one daily. aspirin 81 MG EC tablet 81 mg, Oral, Daily citalopram 20 MG tablet Commonly known as: CeleXA 20 mg, Oral, Daily famotidine 20 MG tablet Commonly known as: PEPCID 20 mg, Oral, 2 times daily fluticasone-vilanterol 200-25 mcg/actuation INHALER Commonly known as: BREO ELLIPTA 1 puff, Inhalation, Daily gabapentin 300 MG capsule Commonly known as: NEURONTIN 300 mg, Oral, 3 times daily HYDROcodone-acetaminophen 5-325 mg per tablet Commonly known as: NORCO 1 tablet, Oral, Every 6 hours PRN, Do not drive while taking this medication. insulin glargine 100 unit/mL injection Commonly known as: LANTUS 15 Units, Subcutaneous, Nightly insulin syringe-needle U-100 0.3 mL 31 gauge x /16 Syrg Type 2 diabetes E11.9 ipratropium-albuterol 0.5-3 mg/3 mL nebulizer Commonly known as: DUO-NEB 3 mL, Inhalation, 4 times daily metoprolol tartrate 100 MG tablet Commonly known as: LOPRESSOR 100 mg, Oral, 2 times daily OXYGEN THERAPY As needed simvastatin 20 MG tablet Commonly known as: ZOCOR 20 mg, Oral, Nightly PHYSICAL EXAM: Blood pressure 149/94, pulse 73, resp. rate 16, height 1.575 m (5' 2"), weight 1 04.781 kg (231 lb), SpO2 95 %. VITAL SIGNS: BP 149/94 mmHg | Pulse 73 | Resp 16 | Ht 1.575 m (5' 2") | Wt 104.781 kg (231 lb ) | BMI 42.24 kg/m2 | SpO2 95% Body mass index is 42.24 kg/(m^2). General Appearance: Alert, cooperative, no distress Neurologic: Mental Status: Awake, alert and oriented x 3. Mood and affect: Stable. Cranial Nerves: Normal. Motor: Moving all 4 limbs. Reflexes symmetrical. Gait: Stable. HEENT: No icterus or oral thrush. Neck: Supple, no palpable mass. Neck circumference: Chest: Normal breath sounds bilaterally. Heart:: RRR, S1- S2 normal, no murmur. Abdomen: Soft, non-tender. Extremities: No edema, No cyanosis. Skin: No rashes, warm to touch. LAB DATA: Chemistry Component Value Date/Time NA 142 12/31/2015 1459 K 3.9 12/31/2015 1459 CL 97 12/31/2015 1459 CO2 35* 12/31/2015 1459 BUN 13 12/31/2015 1459 GLU 87 12/31/2015 1459 Component Value Date/Time CALCIUM 9.0 12/31/2015 1459 ALKPHOS 84 12/31/2015 1459 AST 26 12/31/2015 1459 ALT 16 12/31/2015 1459 Lab Results Component Value Date HGBA1C 6.6* 01/06/2016 No results found for: PHENYTOIN, PHENOBARB, VALPROATE, CBMZ No results found for: FERRITIN Lab Results Component Value Date CHOL 266* 09/24/2015 Lab Results Component Value Date HDL 83 09/24/2015 No results found for: LDLCALC Lab Results Component Value Date TRIG 203* 09/24/2015 Lab Results Component Value Date CHOLHDL 3.2 09/24/2015 RECENT STUDIES: No results found. ASSESSMENT: Encounter Diagnoses Name SNOMED CT(R) Primary? SASHA (obstructive sleep apnea) OBSTRUCTIVE SLEEP APNEA SYNDROME Yes Iron deficiency IRON DEFICIENCY Goldberg-Ekbom syndrome RESTLESS LEGS Parasomnia PARASOMNIA PLAN: We discussed the morbidity and mortality of untreated sleep apnea, including hypertension, CAD, CVA, diabetes mellitus, cardiac dysrhythmia, neurocognitive d ysfunction, and increased incidence of MVA. Potential aggravators such as weight gain, and excessive alcohol consumption within 3-4 hours of bedtime was reviewe d. Split sleep study is recommended. I have encouraged patient to sleep deprive the night prior to the sleep study to improve the sleep efficiency during the f irst half of the night, and this will increase the likelihood of CPAP titration during the second half of the night. Patient is instructed to have a new car driver to assist with transportation to and from sleep lab. Recommended serology include: Ferritin. If ferritin level is less than 75 ng/mL, consider iron supplementation. The basic principal of lifestyle and beavior modification was discussed with patient, which primarily consists of portion control with diet, and activity/exe rcise, as tolerated. Follow up is recommended in 2-3 weeks after the sleep study, or sooner if nec essary. Patient is encouraged to contact the office regarding any additional con cerns or questions. Time Spent: 45 minutes in evaluation / counselling of the patient, and review of the data. Please note that portions of this letter were generated using voice-recognition software. Please excuse any typographic or grammatical errors. [facility] Neurologist Attestation: I have personally interviewed and examined the patient. The note as edited abov e is my own. . Pager: . documented in this encounter Plan of Treatment Care Team Description [place] [address] [place] [address] [phone] 02/29/2020 Office Visit Urology documented as of this encounter Results * Split Night Sleep Study (05/18/2016 10:49 AM CDT) Narrative Performed At This result has an attachment that is n ot available. 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
--- OUTSIDE RECORDS SUMMARY | 2019-11-28 22:38 | XMS REPORT | Encounter Summary ---
Author Author [facility] Organization [facility] Address Unknown Phone Unavailable Care Team Providers Care Sleeve Maker Name Role Phone Ebony Sharp MD PCP Encounter Details Care Team Description Date Type Department Adelaida Olivas MD [address] [facility] [address] [place], [place] [id number] 01/28/2016 Hist-Transcript Aide Orthopaedi c ion Encounter Specialists [address] [facility] [address] [place], [place] [id number] Social History Date Tobacco Use Types Packs/Day [...] encounter Progress Notes * Juarez Noble - 01/28/2016 3:24 PM CDT - History of Present Illness Presents today for evaluation of her lower extremity. She jammed her left foot i nto the side of the bed while getting up at night. She jameed her 3rd toe. She s tates she has had multiple injuries on her left ankle. Past Medical History High Blood Pressure Arthritis [...] and concur with the histories collected on 01/28/2016. -Adelaida Olivas MD, January 28, 2016 2:42 PM Vital Signs Ht: 60 in. Wt: 224 lbs. T: 97.3 deg F. T site: tympanic BMI: 43.91 She was encourage to talk with her primary care provider about weight management . BP: 141/75 Examination Physical examination reveals a pleasant woman who has tenderness to palpation th roughout the course of her left third toe. She also has tenderness to palpation throughout the course of her anterior joint line of her ankle. She is otherwise able to plantar flex, dorsiflex, invert, and gorge her foot with minimal compl aints of pain. Her skin is otherwise intact. She is otherwise able to plantar flex and dorsiflex her foot with minimal complaints of pain. Radiographic Studies X-ray examination demonstrates distal phalanx fracture, third toe. Impression Third toe phalanx fracture. Plan At this point, we did discuss placing her into a high tide walking boot. We andrew l see her back in three weeks for reevaluation. She will require ankle x-ray as well as foot x-ray. . I would like her to return in 3 weeks and obtain a weight bearing x-ray of their left foot and ankle. Orders from current office visit: Ankle x-ray [address] Brendon ALFONSO foot x-ray PQRS 128a PQRS 317n PQRS 130na * Signed by Adelaida Olivas MD on February 03, 2016 at 10:52 AM X-Ray Report X-ray examination demonstrates distal phalanx fracture, third toe. documented in this encounter Plan of Treatment Care Team Description Date [place] [address] [address] [phone] 02/29/2020 Office Visit Urology documented as of this encounter Visit Diagnoses Not on filedocumented in this encounter Additional Health Concerns Resolved Time Infection Noted Time 04/19/2018 12:13 PM CDT Influenza 08/30/2017 10:13 AM ENGINEERING MATHEMATICIAN 08/30/2019 1:09 PM ENGINEERING MATHEMATICIAN Influenza - Rule Out 08/30/2019 11:32 AM ENGINEERING MATHEMATICIAN 09/17/2019 8:17 AM ENGINEERING MATHEMATICIAN RSV 08/31/2019 6:35 PM ENGINEERING MATHEMATICIAN documented as of this encounter
--- OUTSIDE RECORDS SUMMARY | 2019-11-28 22:39 | XMS REPORT | Encounter Summary ---
Author Author [facility] Organization [facility] Address Unknown Phone Unavailable Care Team Providers Care Treater Helper Name Role Phone Ebony Sharp MD PCP Encounter Details Care Team Description Date Type Department Ebony Sharp MD [address] [facility] [address] [place] [address] [phone] 10/08/2015 Documentation [facility] (walk-in clinic) [address] [facility] [address] [place], [place] [id number] Social History Date Tobacco Use Types Packs/Day [...] Description Date [place] [address] [place] [address] [phone] 02/29/2020 Office Visit Urology documented as of this encounter Visit Diagnoses Not on filedocumented in this encounter
--- OUTSIDE RECORDS SUMMARY | 2019-11-28 22:39 | XMS REPORT | Encounter Summary ---
Author Author [facility] Organization [facility] Address Unknown Phone Unavailable Care Team Providers Care System Operation Superintendent Name Role Phone Ebony Sharp MD PCP Encounter Details Care Team Description Date Type Department Ebony Sharp MD [address] [facility] [address] [place] [address] [phone] 11/25/2015 Documentation [facility] (walk-in clinic) [address] [facility] [address] [place], [place] [phone] Social History Date Tobacco Use Types Packs/Day [...] Description Date [place] [address] [place] [address] [phone] 02/29/2020 Office Visit Urology documented as of this encounter Visit Diagnoses Not on filedocumented in this encounter
--- OUTSIDE RECORDS SUMMARY | 2019-11-28 22:39 | XMS REPORT | Encounter Summary ---
Author Author [facility] Organization [facility] Address Unknown Phone Unavailable Care Team Providers Care Financial Systems Manager Name Role Phone Ebony Sharp MD PCP Encounter Details Care Team Description Date Type Department Ebony Sharp MD [address] [facility] [address] [place] [address] [phone] Acute cystitis without hematuria (Primar y Dx) 10/04/2015 Orders Only [facility] (walk-in clinic) [address] [facility] [address] [place], [place] [id number] Social History Date Tobacco Use Types Packs/Day [...] Description Date [place] [address] [place] [address] [phone] 02/29/2020 Office Visit Urology Order Schedule Name Type Priority Associated Diag noses 1 Occurrences starting 10/04/2015 until 10/04/2016 Urinalysis Reflex Lab Routine Acute cystit is without hematuria documented as of this encounter Visit Diagnoses Diagnosis Acute cystitis without hematuria documented in this encounter
--- OUTSIDE RECORDS SUMMARY | 2019-11-28 22:39 | XMS REPORT | Encounter Summary ---
Author Author [facility] Organization [facility] Address Unknown Phone Unavailable Care Team Providers Care Bus Aide Name Role Phone Ebony Sharp MD PCP Encounter Details Care Team Description Date Type Department Ebony Sharp MD [address] [facility] [address] [place] [address] [phone] 11/07/2015 Documentation [facility] (walk-in clinic) [address] [facility] [address] [place], [place] [id number] Social History Date Tobacco Use Types Packs/Day [...] Description Date [place] [address] [place] [address] [phone] 02/29/2020 Office Visit Urology documented as of this encounter Visit Diagnoses Not on filedocumented in this encounter
--- OUTSIDE RECORDS SUMMARY | 2019-11-28 22:39 | XMS REPORT | Encounter Summary ---
Author Author [facility] Organization [facility] Address Unknown Phone Unavailable Care Team Providers Care Food Aide Name Role Phone Ebony Sharp MD PCP Encounter Details Care Team Description Date Type Department Ebony hSarp MD [address] [facility] [address] [place], [place] [id number] Essential hypertension; Hyperlipidemia; Type 2 diabetes mellitus without complication (HCC); Elevated MCV 09/24/2015 Lab [facility] Primar y Care - [facility] [place] [address] [facility] [address] [facility] [place], [place] [address] Social History Date Tobacco Use Types Packs/Day [...] Description Date [place] [address] [place] [address] [phone] 02/29/2020 Office Visit Urology documented as of this encounter Procedures Comments Procedure Name Priority Date/Time Associated Diag nosis VITAMIN B12 Routine 09/24/2015 Elevated MCV 11:55 AM MATTRESS PACKER THYROID STIMULATING Routine 09/24/2015 Essential hypertension HORMONE 11:55 AM MATTRESS PACKER LIPID PANEL Routine 09/24/2015 Hyperlipidemia 11:55 AM MATTRESS PACKER HEMOGLOBIN A1C Routine 09/24/2015 Type 2 diabetes mellitus 11:55 AM MATTRESS PACKER without complication (HCC) COMPREHENSIVE METABOLIC Routine 09/24/2015 Essent ial hypertension PANEL 11:55 AM MATTRESS PACKER Hyperlipidemia CBC AND DIFF (MANUAL DIFF Routine 09/24/2015 Esse ntial hypertension IF NECESSARY) 11:55 AM MATTRESS PACKER URINALYSIS MICROSCOPIC Routine 09/24/2015 ONLY 11:46 AM MATTRESS PACKER URINALYSIS REFLEX Routine 09/24/2015 11:46 AM MATTRESS PACKER MICROALBUMIN RANDOM Routine 09/24/2015 11:46 AM MATTRESS PACKER CULTURE, URINE Routine 09/24/2015 11:46 AM MATTRESS PACKER documented in this encounter Results * Vitamin B12 (09/24/2015 11:55 AM MATTRESS PACKER) VITAMIN B12 436 239 - 931 pg/mL [facility] Specimen Blood Performing Organization Address City/[facility] Ph one Number [address] [address] LABORATORIES * Thyroid Stimulating Hormone (09/24/2015 11:55 AM MATTRESS PACKER) Thyroid 0.11 (L) 0.47 - 4.68 uIU/mL [facility] Hormone LABORATORIES Specimen Performing Organization Address City/[facility] Ph one Number [address] [address] LABORATORIES * Lipid Panel (09/24/2015 11:55 AM MATTRESS PACKER) Cholesterol 266 (H) 100 - 200 mg/dL [facility] HDL Cholesterol 83 40 - 110 mg/dL [facility] Non-HDL 183 (H) 0 - 130 mg/dL [facility] LABORATORIES Triglycerides 203 (H) 0 - 150 mg/dL [facility] LDL Cholesterol 142 (H) 0 - 99 mg/dL [facility] Cholesterol/HDL 3.2 0.0 - 4.5 [facility] REGIONAL LABORATORIES Specimen Performing Organization Address [facility] one Number [facility] [address] [place] [address] LABORATORIES * Hemoglobin A1C (09/24/2015 11:55 AM MATTRESS PACKER) Hemoglobin A1C 7.0 (H) 4.0 - 5.6 % [facility] Comment: REGIONAL Non-diabetic 4.0 - LABORATORIES 5.6 % Prediabetes 5.7 - 6.4 % Diabetes >= 6.5 % Specimen Performing Organization Address [facility] one Number [facility] [address] [place] [address] LABORATORIES * Comprehensive Metabolic Panel (09/24/2015 11:55 AM MATTRESS PACKER) Sodium 141 133 - 147 MEQ/L [facility] LABORATORIES Potassium 4.2 3.5 - 5.3 MEQ/L [facility] Chloride 101 96 - 112 MEQ/L [facility] Carbon Dioxide 29 20 - 32 MEQ/L [facility] Anion Gap 10 5 - 17 [facility] Calcium 9.7 8.4 - 10.5 mg/dL [facility] Glucose 141 (H) 70 - 100 mg/dL [facility] Protein Total 7.7 6.0 - 8.2 g/dL [facility] Serum REGIONAL LABORATORIES Albumin 4.4 3.5 - 5.0 g/dL [facility] Alkaline 100 42 - 140 IU/L [facility] Phosphatase REGIONAL LABORATORIES Alanine 37 13 - 69 IU/L [facility] Aminotransferas REGIONAL e LABORATORIES Aspartate 28 15 - 46 IU/L [facility] Aminotransferas REGIONAL e LABORATORIES Bilirubin Total 0.6 0.2 - 1.3 mg/dL [facility] Blood Urea 18 7 - 26 mg/dL [facility] Nitrogen [facility] LABORATORIES Creatinine 0.7 0.4 - 1.1 mg/dL [facility] eGFR Female AA 101 60 - 200 [facility] Comment: REGIONAL Chronic Kidney Disease less LABORATORIES than 60 mL/min/1.73 sq.m Kidney failure less than 15 mL/min/1.73 sq.m eGFR Female 85 60 - 200 [facility] Non-AA Comment: REGIONAL Chronic Kidney Disease less LABORATORIES than 60 mL/min/1.73 sq.m Kidney failure less than 15 mL/min/1.73 sq.m Specimen Performing Organization Address City/State/Zipcode Ph one Number [facility] [address] [place] [address] LABORATORIES * CBC and Diff (manual diff if necessary) (09/24/2015 11:55 AM MATTRESS PACKER) WBC 11.41 (H) 4.00 - 11.00 TH/uL [facility] LABORATORIES RBC 4.64 4.00 - 5.00 MIL/uL [facility] Hemoglobin 15.2 (H) 12.0 - 15.0 g/dL [facility] Hematocrit 46 (H) 36 - 45 % [facility] MCV 99 80 - [address] [facility] MCH 33 27 - [address] [facility] MCHC 33 32 - 36 % [facility] RDW 14.3 9.0 - 14.5 % [facility] Platelet Count 221 140 - 400 TH/uL [facility] MPV 9.8 9.4 - 12.[address] [facility] Nucleated RBCs 0 0 - 0 /100 [facility] % Neutrophils 66 45 - 78 % [facility] %Lymphocytes 23 15 - 47 % [facility] %Monocytes 8 0 - 12 % [facility] %Eosinophils 2 0 - 7 % [facility] %Basophils 1 0 - 2 % [facility] % Imm Grans 0 0 - 1 % [facility] # Granulocytes 7.59 (H) 1.70 - 6.80 TH/uL [facility] LABORATORIES # Lymphocytes 2.65 1.00 - 3.30 TH/uL [facility] LABORATORIES # Monocytes 0.95 (H) 0.20 - 0.90 TH/uL [facility] LABORATORIES # Eosinophils 0.17 0.00 - 0.40 TH/uL [facility] LABORATORIES # Basophils 0.06 0.00 - 0.10 TH/uL [facility] LABORATORIES Specimen Performing Organization Address [facility] one Number [facility] [address] [address] LABORATORIES * Culture, Urine (09/24/2015 11:46 AM MATTRESS PACKER) Culture Result [facility] LABORATORIES Isolate 1 >100,000 Cfu/ml (A) [facility] LABORATORIES Isolate 1 Beta Hemolytic Streptococcus [facility] Group B (A) REGIONAL LABORATORIES Isolate 1 No susceptibility testing done [facility] on this isolate (A) REGIONAL LABORATORIES Specimen Performing Organization Address [facility] one Number [facility] [address] [address] LABORATORIES * Urinalysis Microscopic Only (09/24/2015 11:46 AM MATTRESS PACKER) Microscopic RBC 1 - 5 1 - 5 [facility] Urine REGIONAL LABORATORIES Microscopic WBC >40 (A) 1 - 5 [facility] Urine REG[facility]AL LAB[facility]IES Epithelial Absent Absent [facility] Cells REGIONAL LAB[facility]ATORIES Hyaline Cast Absent Absent [facility] LABORATORIES Bacteria Absent Absent [facility] LABORATORIES Specimen Performing Organization Address [facility] one Number [address] [id number] LABORATORIES * Microalbumin Random (09/24/2015 11:46 AM MATTRESS PACKER) Creatinine 178.2 mg/dL [facility] Urine Random REGIONAL LABORATORIES Microalbumin 7.20 mg/dL [facility] mg/dl REG[facility]AL LAB[facility]ATORIES Microalbumin/Cr 40.40 (H) 0.00 - 30.00 ug/mg [facility] eatinine Ratio REG[facility]AL LABORATORIES Specimen Performing Organization Address [facility] one Number [address] [phone] LABORATORIES * Urinalysis Reflex (09/24/2015 11:46 AM MATTRESS PACKER) Appearance, Yellow [facility] Urine REGIONAL LABORATORIES Glucose Urine Negative Negative mg/dL [facility] LABORATORIES Bilirubin Urine Negative Negative [facility] LABORATORIES Ketones Urine Negative Negative mg/dL [facility] LABORATORIES Specific 1.018 1.001 - 1.030 [facility] [place], UA REGIONAL LABORATORIES Hemoglobin Negative Negative [facility] Urine REGIONAL LABORATORIES PH Urine 6.0 5.0 - 8.0 [facility] LABORATORIES Protein Urine 30 (A) Negative mg/dL [facility] Qual REGIONAL LABORATORIES Urobilinogen Negative Negative EU/dL [facility] Urine [facility] LABORATORIES Nitrite Urine NegativeComment: Culture Negative [facility] Ordered REG[facility]AL LABORATORIES Leukocyte Positive (A) Negative [facility] Esterase [facility] LABORATORIES Specimen Performing Organization Address City/State/Zipcode Ph one Number [address] [address] LABORATORIES documented in this encounter Visit Diagnoses Diagnosis Essential hypertension Unspecified essential hypertension Hyperlipidemia Other and unspecified hyperlipidemia Type 2 diabetes mellitus without compli cation (HCC) Elevated MCV Other abnormality of red blood cells documented in this encounter
--- OUTSIDE RECORDS SUMMARY | 2019-11-28 22:39 | XMS REPORT | Encounter Summary ---
Author Author [facility] Organization [facility] Address Unknown Phone Unavailable Care Team Providers Care Pulmonologist/Intensivist Name Role Phone Ebony Sharp MD PCP Encounter Details Care Team Description Date Type Department Ebony Sharp MD [address] [facility] [address] [place] [address] [phone] 10/23/[address] [facility] (walk-in clinic) [address] [facility] [address] [place], [place] [phone] Social History Date Tobacco Use Types Packs/Day [...] Description Date [place] [address] [place] [address] [phone] 02/29/2020 Office Visit Urology documented as of this encounter Visit Diagnoses Not on filedocumented in this encounter
--- OUTSIDE RECORDS SUMMARY | 2019-11-28 22:39 | XMS REPORT | Encounter Summary ---
Author Author [facility] Organization [facility] Address Unknown Phone Unavailable Care Team Providers Care Buncher Hand Name Role Phone Ebony Sharp MD PCP Encounter Details Care Team Description Date Type Department Ebony Sharp MD [address] [facility] [address] [place] [address] [phone] Health care maintenance (Primary Dx) 09/25/2015 Orders Only [facility] y [facility] (walk-in clinic) [address] [facility] [address] [place], [place] [phone] Social History Date Tobacco Use Types Packs/Day [...] Description Date [place] [address] [place] [address] [phone] 02/29/2020 Office Visit Urology documented as of this encounter Results * T4 Free (12/06/2015 12:42 PM CDT) T4 Free 1.1 0.8 - 2.2 ng/dL [facility] LABORATORIES Specimen Blood Performing Organization Address City/State/Zipcode Ph one Number [place] [address] [place] [address] LABORATORIES * Thyroid Stimulating Hormone (12/06/2015 12:42 PM CDT) Thyroid 0.27 (L) 0.47 - 4.68 uIU/mL [facility] LABORATORIES Specimen Blood Performing Organization Address City/State/Zipcode Ph one Number [address] [address] LABORATORIES documented in this encounter Visit Diagnoses Diagnosis Health care maintenance documented in this encounter
--- OUTSIDE RECORDS SUMMARY | 2019-11-28 22:39 | XMS REPORT | Encounter Summary ---
Author Author [facility] Organization [facility] Address Unknown Phone Unavailable Care Team Providers Care Flight Crew Ordnanceman Name Role Phone Ebony Sharp MD PCP Reason for Visit * Diagnostic Imaging (Routine) Referred By Contact Referred To Contact Status Reason Specialty Diagnoses / Procedures Ebony Sharp MD [address] [facility] [address] [place] [address] [address] [place] [address] Closed Radiology Diagnoses Vaginal discharge P rocedures US Pelvis complete US Pelvis complete and transvaginal P Encounter Details Care Team Description Date Type Department Ebony Sharp MD 20 [facility] [address] [place] [id number] Vaginal discharge 10/09/2015 [facility] [address] [place] [id number] Social History Date Tobacco Use Types Packs/Day [...] 6 (six) hours as needed for wheezing. 09/24/2015 02/14/2016 [...] by mouth 3 (three) times a day. 10/07/2015 12/31/2015 HYDROcodone-acetaminophen 0 (NORCO) 10-325 mg per tablet 09/05/2015 08/07/2016 HYDROcodone-acetaminophen Take one 20 tablet 0 (NORCO) 5-325 mg per tablet by tablet mouth every 6 (six) hours as needed for pain. Do not drive while taking this medication. 09/24/2015 11/29/2015 insulin glargine (LANTUS) Inject 10 mL 1 100 unit/mL injection fifteen Units under the skin nightly. 12/18/2015 ipratropium-albuterol Inhale 3 mL 4 0 (DUO-NEB) 0.5-3 mg/3 mL (four) times nebulizer a day. 09/24/2015 02/14/2016 metoprolol tartrate Take one 180 tablet 1 (LOPRESSOR) 100 MG tablet tablet (100 mg total) by mouth 2 (two) times a day. 09/24/2015 02/14/2016 simvastatin (ZOCOR) 20 MG Take one 90 tablet 1 tablet tablet (20 mg total) by mouth nightly. documented as of this encounter Progress Notes * Teo George MD - 10/10/2015 5:03 PM LOADER UNLOADER Quick Note: Normal pelvic ultrasound xray result and please notify. ER UNLOADER documented in this encounter Plan of Treatment Care Team Description Date [place] [address] [place] [address] [phone] 02/29/2020 Office Visit Urology documented as of this encounter Procedures Comments Procedure Name Priority Date/Time Associated Diag nosis US PELVIS TRANSABD Routine 10/09/2015 Vaginal dis charge COMPLETE 12:40 PM LOADER UNLOADER documented in this encounter Results * US Pelvis complete (10/09/2015 12:40 PM LOADER UNLOADER) Specimen Impressions Performed At Impression: LEVI No pelvic mass or fluid collection. Hysterectomy. READING SITE: [facility] Narrative Performed At Patient: ISIAH BENÍTEZ Sex#: F # [id number] Jose#: Location: [facility] Procedure Requested: [id number] US PELVI S COMPLETE Reason for Exam: Vaginal discharge Exam Ordered: 10/09/2015 12 22 Exam Date/Time: 10/09/2015 124 0 Check-in Date/Time: 10/09/2015 1227 US PELVIS COMPLETE Indication: Vaginal discharge Technique: Complete pelvic ultrasound performed. Patient refused transvaginal ultrasound Findings: Hysterectomy. Ovaries are not visualized. No pelvic mass or ascites. No pelvic fluid collection. Procedure Note Interface, Rad Results In - 10/09/2015 1:19 PM LOADER UNLOADER Patient: ISIAH BENÍTEZ Sex#: F # [id number] Jose#: Location: [facility] Procedure Requested: [id number] US PELVIS COMPLETE Reason for Exam: Vaginal discharge Exam Ordered: 10/09/2015 1222 Exam Date/Time: 10/09/2015 1240 Check-in Date/Time: 10/09/2015 1227 US PELVIS COMPLETE Indication: Vaginal discharge Technique: Complete pelvic ultrasound performed. Patient refused transvaginal ultrasound Findings: Hysterectomy. Ovaries are not visualized. No pelvic mass or ascites. No pelvic fluid collection. Impression: No pelvic mass or fluid collection. Hysterectomy. READING SITE: [facility] Address City/State/Zipcode Ph one Edgar SIMS documented in this encounter Visit Diagnoses Diagnosis Vaginal discharge Leukorrhea, not specified as infective documented in this encounter
--- OUTSIDE RECORDS SUMMARY | 2019-11-28 22:39 | XMS REPORT | Encounter Summary ---
Author Author [facility] Organization [facility] Address Unknown Phone Unavailable Care Team Providers Care Coating Mixer Tender Name Role Phone Ebony Sharp MD PCP Reason for Visit * Reason Comments Other Encounter Details Care Team Description Date Type Department Rc Rice MD no forwarding address Other 12/24/2015 Refill [facility] (walk-in clinic) [address] [facility] [address] [place] [address] Social History Date Tobacco Use Types Packs/Day [...] Description Date [place] [address] [place] [address] [phone] 02/29/2020 Office Visit Urology documented as of this encounter Visit Diagnoses Not on filedocumented in this encounter
--- OUTSIDE RECORDS SUMMARY | 2019-11-28 22:39 | XMS REPORT | Encounter Summary ---
Author Author [facility] Organization [facility] Address Unknown Phone Unavailable Care Team Providers Care Byproducts Pump Operator Name Role Phone Ebony Sharp MD PCP Reason for Visit * Reason Comments Chest pain feels realy tired Encounter Details Care Team Description Date Type Department Primo Huddleston, RN ACNP [address] [facility] [address] [place] [address] Acute chest pain (Primary Dx) 12/31/2015 Office Visit [facility] (walk-in clinic) [address] [facility] [address] [place] [address] Social History Date Tobacco Use [...] Signs Reading Time Taken Comments Vital Sign 152/104 12/31/2015 1:39 PM CDT Blood Pressure 73 12/31/2015 1:39 PM CDT Pulse 36.8 C (98.3 F) 12/31/2015 1:39 PM CDT Temperature - - Respiratory Rate 98% 12/31/2015 1:39 PM CDT Oxygen Saturation - - Inhaled Oxygen Concentration 98.9 kg (218 lb) 12/31/2015 1:39 PM CDT Weight - - Height 42.58 09/14/2015 5:31 AM FRUIT PICKER Body Mass Index documented in this encounter Progress Notes * Primo Huddleston RN ACNP - 12/31/2015 1:54 PM CDT Caren Do [facility] 1950 [id number] Reason For Visit: Chief Complaint Patient presents with Chest pain feels realy tired HPI: Caren is a 65-year-old female patient comes in today with complaint of 3 da ys worth of substernal chest pain that wraps around to her back and between her shoulder blades. She's been diaphoretic and feeling very bad. Current Outpatient Prescriptions Medication Sig Dispense Refill [...] by mouth eve y. 90 tablet 1 famotidine (PEPCID) 20 MG tablet Take one tablet (20 mg total) by mouth 2 (t wo) times a day. 180 tablet 1 fentaNYL (DURAGESIC) 50 mcg/hr patch Place 1 patch on the skin every 72 hour s. fluticasone-vilanterol (BREO ELLIPTA) 200-25 mcg/actuation INHALER Inhale [...] by mouth nigh tly. 90 tablet 1 No current facility-administered medications for this visit. Allergies Allergies Allergen Reactions Sulfa (Sulfonamide Antibiotics) Immunization There is no immunization history on file for this patient. Active Problems Patient Active Problem List Diagnosis SNOMED CT(R) Type 2 diabetes mellitus without complication TYPE 2 DIABETES MELLITUS COPD (chronic obstructive pulmonary disease) CHRONIC OBSTRUCTIVE LUNG DISEAS E Hypertension HYPERTENSIVE DISORDER Hyperlipidemia HYPERLIPIDEMIA Chronic pain CHRONIC PAIN Elevated MCV MCV - RAISED MATA (generalized anxiety disorder) GENERALIZED ANXIETY DISORDER Hair loss ALOPECIA MEDICAL HISTORY Past Medical History Diagnosis Date COPD (chronic obstructive pulmonary disease) Diabetes mellitus Hypertension Arthritis Hyperlipidemia SURGICAL HISTORY Past Surgical History Procedure Laterality Date section, classic Cholecystectomy Hysterectomy Family History Family History Problem Relation Age of Onset Cancer Mother Stroke Mother Cancer Father Stroke Father Social History History Social History Marital Status: Single Spouse Name: N/A Number of Children: N/A Years of Education: N/A Occupational History Not on file. Social History Main Topics Smoking status: Former Smoker Quit date: 09/14/2009 Smokeless tobacco: Never Used Alcohol Use: No Drug Use: No Sexual Activity: No Other Topics Concern Not on file Social History Narrative ROS: Review of Systems Physical Exam: Filed Vitals: 12/31/15 1339 BP: 152/104 Pulse: 73 Temp: 36.8 C (98.3 F) SpO2: 98% Physical Exam Assessment There are no diagnoses linked to this encounter. Plan: Patient was instructed to go to the emergency room right away. No Follow-up on file. ADAM Ortiz, 12/31/2015 1:54 PM Disclaimer: This note may contain nonclinical errors using voice recognition dic Snaapi[employer] software. documented in this encounter Plan of Treatment Care Team Description Date [place] [address] [place] [address] [phone] 02/29/2020 Office Visit Urology documented as of this encounter Visit Diagnoses Diagnosis Acute chest pain Unspecified chest pain documented in this encounter
--- OUTSIDE RECORDS SUMMARY | 2019-11-28 22:39 | XMS REPORT | Encounter Summary ---
Author Author [facility] Organization [facility] Address Unknown Phone Unavailable Care Team Providers Care Costume Director Name Role Phone Ebony Sharp MD PCP Encounter Details Care Team Description Date Type Department Ebony Sharp MD [address] [facility] [address] [place] [address] [phone] Health care maintenance (Primary Dx) 12/06/2015 Lab [facility] Primar y Care - [facility] [address] [facility] [address] [facility] [place], [place] [id number] Social History Date Tobacco Use Types Packs/Day [...] Description Date [place] [address] [place] [address] [phone] 02/29/2020 Office Visit Urology documented as of this encounter Procedures Comments Procedure Name Priority Date/Time Associated Diag nosis THYROID STIMULATING Routine 12/06/2015 Health car e maintenance HORMONE 12:42 PM CDT T4 FREE Routine 12/06/2015 Health care varun ntenance 12:42 PM CDT documented in this encounter Results * T4 Free (12/06/2015 12:42 PM CDT) T4 Free 1.1 0.8 - 2.2 ng/dL [facility] LABORATORIES Specimen Blood Performing Organization Address City/[facility] one Number [address] [address] LABORATORIES * Thyroid Stimulating Hormone (12/06/2015 12:42 PM CDT) Thyroid 0.27 (L) 0.47 - 4.68 uIU/mL [facility] Hormone LABORATORIES Specimen Blood Performing Organization Address City/[facility] Ph one Number [address] [address] LABORATORIES documented in this encounter Visit Diagnoses Diagnosis Health care maintenance documented in this encounter
--- OUTSIDE RECORDS SUMMARY | 2019-11-28 22:39 | XMS REPORT | Encounter Summary ---
Author Author [facility] Organization [facility] Address Unknown Phone Unavailable Care Team Providers Care Reimbursement Rep Name Role Phone Ebony Sharp MD PCP Encounter Details Care Team Description Date Type Department Ebony Sharp MD [address] [facility] [address] [place], [place] [id number] 12/20/[address] [facility] (walk-in clinic) [address] [facility] [address] [place], [place] [id number] Social History Date Tobacco Use Types Packs/Day [...] Telephone Encounter - Ebony Sharp MD - 12/20/2015 9:52 AM CDT Yes - that is fine. documented in this encounter Plan of Treatment Care Team Description Date [place] [address] [place], [place] [id number] 02/29/2020 Office Visit Urology documented as of this encounter Visit Diagnoses Not on filedocumented in this encounter
--- OUTSIDE RECORDS SUMMARY | 2019-11-28 22:39 | XMS REPORT | Encounter Summary ---
Author Author [facility] Organization [facility] Address Unknown Phone Unavailable Care Team Providers Care Investment Accountant Name Role Phone Ebony Sharp MD PCP Reason for Visit * Reason Comments Medication Refill Encounter Details Care Team Description Date Type Department Tiburcio Wagoner MD [address] [facility] [address] [place] [address] [phone] Medication Refill 10/16/2015 [address] [facility] (walk-in clinic) [address] [facility] [address] [place], [place] [id number] Social History Date Tobacco Use Types Packs/Day [...] Description Date [place] [address] [place] [address] [phone] 02/29/2020 Office Visit Urology documented as of this encounter Visit Diagnoses Diagnosis Wheezing documented in this encounter
--- OUTSIDE RECORDS SUMMARY | 2019-11-28 22:39 | XMS REPORT | Encounter Summary ---
Author Author [facility] Organization [facility] Address Unknown Phone Unavailable Care Team Providers Care Manager Transmission Name Role Phone Ebony Sharp MD PCP Encounter Details Care Team Description Date Type Department Ebony Sharp MD [address] [facility] [facility] [address] [place] [address] [phone] 12/26/2015 Documentation [facility] (walk-in clinic) [address] [place], [place] [id number] Social History Date Tobacco Use Types Packs/Day [...] Description [place] [address] [place] [address] [phone] 02/29/2020 Office Visit Urology documented as of this encounter Visit Diagnoses Not on filedocumented in this encounter
--- OUTSIDE RECORDS SUMMARY | 2019-11-28 22:39 | XMS REPORT | Encounter Summary ---
Author Author [facility] Organization [facility] Address Unknown Phone Unavailable Care Team Providers Care Working Second Hand Name Role Phone Ebony Sharp MD PCP Reason for Visit * Reason Comments Other Encounter Details Care Team Description Date Type Department Ebony Sharp MD [address] [facility] [address] [place] [address] [phone] Other 11/29/2015 Refill [facility] (walk-in clinic) [address] [facility] [address] [place], [place] [id number] Social History Date Tobacco Use Types Packs/Day [...] Description Date [place] [address] [place] [address] [phone] 02/29/2020 Office Visit Urology documented as of this encounter Visit Diagnoses Not on filedocumented in this encounter
--- OUTSIDE RECORDS SUMMARY | 2019-11-28 22:39 | XMS REPORT | Encounter Summary ---
Author Author [facility] Organization [facility] Address Unknown Phone Unavailable Care Team Providers Care Independent Driver Name Role Phone Ebony Sharp MD PCP Reason for Visit * Reason Comments Medication Refill Encounter Details Care Team Description Date Type Department Ebony Sharp MD [address] [facility] [address] [place] [address] [phone] Medication Refill 12/02/[address] [facility] (walk-in clinic) [address] [facility] [address] [place], [place] [id number] Social History Date Tobacco Use Types Packs/Day [...] Description Date [place] [address] [place] [address] [phone] 02/29/2020 Office Visit Urology documented as of this encounter Visit Diagnoses Not on filedocumented in this encounter
--- OUTSIDE RECORDS SUMMARY | 2019-11-28 22:39 | XMS REPORT | Encounter Summary ---
Author Author [facility] Organization [facility] Address Unknown Phone Unavailable Care Team Providers Care Sole Ruffer Name Role Phone Ebony Sharp MD PCP Encounter Details Care Team Description Date [place] [address] [place] [address] [phone] 11/29/2015 Documentation [facility] [address] [place] [address] Social History Date Tobacco Use Types Packs/Day [...] Description Date [place] [address] [place] [address] [phone] 02/29/2020 Office Visit Urology documented as of this encounter Visit Diagnoses Not on filedocumented in this encounter
--- OUTSIDE RECORDS SUMMARY | 2019-11-28 22:39 | XMS REPORT | Encounter Summary ---
Author Author [facility] Organization [facility] Address Unknown Phone Unavailable Care Team Providers Care Director Regulatory Affairs Name Role Phone Ebony Sharp MD PCP Reason for Visit * Reason Comments Medication Refill Encounter Details Care Team Description Date Type Department Ebony Sharp MD [address] [facility] [address] [place], [place] [id number] Medication Refill 10/15/2015 Telephone [facility] (walk-in clinic) [address] [facility] [address] [place], [place] [id number] Social History Date Tobacco Use Types Packs/Day [...] encounter Miscellaneous Notes * Telephone Encounter - Comfort Alatorre MA - 10/16/2015 12:45 PM APPLIQUE CUTTER Enter prescription IQUE CUTTER * Telephone Encounter - Tiburcio Wagoner MD - 10/15/2015 5:08 PM APPLIQUE CUTTER Okay to fill IQUE CUTTER * Telephone Encounter - Aniya Rosa MA - 10/15/2015 4:55 PM APPLIQUE CUTTER Patient is new with Dr Sharp, she is requesting a rescue inhaler. Pro air inhal er. She said she had one with her previous and needs a new rx. IQUE CUTTER documented in this encounter Plan of Treatment Care Team Description [place] [address] [place] [address] [phone] 02/29/2020 Office Visit Urology documented as of this encounter Visit Diagnoses Not on filedocumented in this encounter
--- OUTSIDE RECORDS SUMMARY | 2019-11-28 22:39 | XMS REPORT | Encounter Summary ---
Author Author [facility] Organization [facility] Address Unknown Phone Unavailable Care Team Providers Care Administrative And Program Specialist Name Role Phone Ebony Sharp MD PCP Reason for Visit * Reason Comments Medication Refill Encounter Details Care Team Description Date Type Department Ebony Sharp MD [address] [facility] [address] [place] [address] [phone] Medication Refill 12/18/2015 Refill [facility] (walk-in clinic) [address] [facility] [address] [place], [place] [id number] Social History Date Tobacco Use Types Packs/Day [...] Description [place] [address] [place] [address] [phone] 02/29/2020 Office Visit Urology documented as of this encounter Visit Diagnoses Not on filedocumented in this encounter
--- OUTSIDE RECORDS SUMMARY | 2019-11-28 22:40 | XMS REPORT | Encounter Summary ---
Author Author [facility] Organization [facility] Address Unknown Phone Unavailable Care Team Providers Care Pigeon Fancier Name Role Phone Yrn Sharp MD PCP Reason for Referral * Diagnostic Imaging (Routine) Referred By Contact Referred To Contact Status Reason Specialty Diagnoses / Procedures Yrn Sharp MD [address] [facility] [address] [place] [address] Sle C[facility] Lab [address] [facility] [place] [id number] Closed Cardiology Diagnoses Essential hypertension P rocedures Echo Complete with Doppler and Color Flow * Consultation (Elective) Referred By Contact Referred To Contact Status Reason Specialty Diagnoses / Procedures Yrn Sharp MD [address] [facility] [address] [place] [address] Deomnd Jose MD [address] [facility] [address] [place] [address] Closed Specialty Services Pain Management Diagnoses Required Chronic pain Reason for Visit * Reason Comments Diabetes Hypertension Encounter Details Care Team Description Date Type Department Yrn Sharp MD [address] [facility] [address] [place] [address] [phone] Type 2 diabetes mellitus without complic ation (HCC) (Primary Dx); COPD (chronic obstructive pulmonary disease) (HCC); Essential hypertension; Hyperlipidemia; Chronic pain; Elevated MCV; MATA (generalized anxiety disorder); Hair loss; Vaginal discharge 09/24/2015 Office Visit [facility] (walk-in clinic) [address] [facility] [address] [place] [address] Social History Date Tobacco Use [...] Signs Reading Time Taken Comments Vital Sign 114/82 09/24/2015 10:50 AM SLEDGER LAS Blood Pressure 102 09/24/2015 10:50 AM SLEDGER Regular Pulse - - Temperature - - Respiratory Rate - - Oxygen Saturation - - Inhaled Oxygen Concentration 90.3 kg (199 lb) 09/24/2015 10:50 AM SLEDGER Weight - - Height 38.86 09/14/2015 5:31 AM SLEDGER Body Mass Index documented in this encounter Progress Notes * Yrn Sharp MD - 09/24/2015 11:07 AM SLEDGER Patient ID: Isiah Benítez is a 65 y.o. female. Subjective: Patient presents with Diabetes and Hypertension History of Present Illness 1. DM2 - stable. Due for labs. Last check many months ago. Out of meds for a week. 2. COPD- has been to er twice with copd exac. Her O2 sats were 86% last time. 3. HTN - controlled 4. 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 HLD - stable 6. Chronic pain - on fentanyl and hydrocodone. She is out of fentanyl right no w. 7. MATA - stable 8. Insomnia - stable 9. GERD - stable. 10. Hair loss - worse than usual recently. She is currently wearing a wig 11. Vaginal discharge - she has had a bloody appears discharge for about a year . She had a pap a year ago to further evaluate and it was negative per her verb al report. She wonders if she needs another pap. She has had a hyst, so does n ot have uterus or ovaries. Problem List: There is no problem list on file for this patient. Allergies: Allergies Allergen Reactions Sulfa (Sulfonamide Antibiotics) Medications: Outpatient Encounter Prescriptions as of 09/24/2015 Medication Sig Dispense Refill albuterol ( ACCUNEB) 1.25 mg/3 mL nebulizer solution Take 1 ampule by nebu lization every 6 (six) hours as needed for wheezing. amitriptyline (ELAVIL) 25 MG tablet Take 25 mg by mouth nightly. aspirin 81 MG EC tablet Take 81 mg by mouth daily. citalopram (CELEXA) 20 MG tablet Take 20 mg by mouth daily. famotidine (PEPCID) 20 MG tablet Take one tablet (20 mg total) by mouth 2 (t wo) times a day. 60 tablet 0 fentaNYL (DURAGESIC) 50 mcg/hr patch Place 1 patch on the skin every 72 hour s. gabapentin (NEURONTIN) 300 MG capsule Take 300 mg by mouth 3 (three) times a day. HYDROcodone-acetaminophen (NORCO) 5-325 mg per tablet Take one tablet by tanna th every 6 (six) hours as needed for pain. Do not drive while taking this medica tion. 20 tablet 0 insulin glargine (LANTUS) 100 unit/mL injection Inject 15 Units under the sk in nightly. ipratropium-albuterol (DUO-NEB) 0.5-3 mg/3 mL nebulizer Inhale 3 mL 4 (four) times a day. metoprolol tartrate (LOPRESSOR) 100 MG tablet Take 100 mg by mouth 2 (two) t imes a day. OXYGEN THERAPY as needed. simvastatin (ZOCOR) 20 MG tablet Take 20 mg by mouth nightly. No facility-administered encounter medications on file as of 09/24/2015. History: Past Medical History Diagnosis Date COPD (chronic obstructive pulmonary disease) Diabetes mellitus Hypertension Arthritis Hyperlipidemia Past Surgical History Procedure Laterality Date section, classic Cholecystectomy Hysterectomy Family History Problem Relation Age of Onset Cancer Mother Stroke Mother Cancer Father Stroke Father History Social History Marital Status: Single Spouse Name: N/A Number of Children: N/A Years of Education: N/A Social History Main Topics Smoking status: Former Smoker Quit date: 09/14/2009 Smokeless tobacco: Never Used Alcohol Use: No Drug Use: No Sexual Activity: No Other Topics Concern None Social History Narrative Review of Systems Constitutional: Negative. HENT: Negative. Respiratory: Negative. Cardiovascular: Negative. Gastrointestinal: Negative. Endocrine: Hair loss on head Genitourinary: Negative. Musculoskeletal: Negative. Skin: Negative. Neurological: Negative. Psychiatric/Behavioral: Negative. Objective: BP 114/82 mmHg | Pulse 102 | Wt 90.266 kg (199 lb) Physical Exam Constitutional: She is oriented to person, place, and time. She appears well-dev eloped and well-nourished. HENT: Head: Normocephalic and atraumatic. Right Ear: External ear normal. Left Ear: External ear normal. Mouth/Throat: Oropharynx is clear and moist. Eyes: EOM are normal. Pupils are equal, round, and reactive to light. Neck: Normal range of motion. Neck supple. Cardiovascular: Normal rate, regular rhythm and normal heart sounds. Pulmonary/Chest: Effort normal and breath sounds normal. Abdominal: Soft. Musculoskeletal: Normal range of motion. Neurological: She is alert and oriented to person, place, and time. No sensory d eficit. Skin: Skin is warm and dry. Psychiatric: She has a normal mood and affect. Her behavior is normal. Nursing note and vitals reviewed. Assessment/Plan: Diagnoses and all orders for this visit: Type 2 diabetes mellitus without complication Orders: - Hemoglobin A1C; Future - Microalbumin Random COPD (chronic obstructive pulmonary disease) Essential hypertension Orders: - CBC and Diff (manual diff if necessary); Future - Comprehensive Metabolic Panel; Future - Thyroid Stimulating Hormone; Future - Echo Complete with Doppler and Color Flow; Future Hyperlipidemia Orders: - Comprehensive Metabolic Panel; Future - Lipid Panel; Future Chronic pain Orders: - Ambulatory referral to Pain Clinic; Future Elevated MCV Orders: - Vitamin B12; Future MATA (generalized anxiety disorder) Hair loss Vaginal discharge Orders: - US Pelvis complete and transvaginal P; Future - Urinalysis Reflex Other orders - fentaNYL (DURAGESIC) 50 mcg/hr patch; Place 1 patch on the skin every 72 h ours. - OXYGEN THERAPY; as needed. - amitriptyline (ELAVIL) 25 MG tablet; Take one tablet (25 mg total) by mout h nightly. - citalopram (CELEXA) 20 MG tablet; Take one tablet (20 mg total) by mouth d aily. - famotidine (PEPCID) 20 MG tablet; Take one tablet (20 mg total) by mouth 2 (two) times a day. - gabapentin (NEURONTIN) 300 MG capsule; Take one capsule (300 mg total) by mouth 3 (three) times a day. - insulin glargine (LANTUS) 100 unit/mL injection; Inject fifteen Units unde r the skin nightly. - metoprolol tartrate (LOPRESSOR) 100 MG tablet; Take one tablet (100 mg tot al) by mouth 2 (two) times a day. - simvastatin (ZOCOR) 20 MG tablet; Take one tablet (20 mg total) by mouth n ightly. - fluticasone-vilanterol (BREO ELLIPTA) 200-25 mcg/actuation INHALER; Inhale one puff daily. She has been out of her meds for about a week. 1. DM2 - check a1c 2. COPD- she was at 86% during her ER visit, but is 95-98% off of O2 here. 3. HTN - controlled 4. Neuropathy secondary to diabetes - continue kannan. 5. HLD - check lipids 6. Chronic pain - refer to Dr. Jose. Her daughter already sees him. 7. MATA - on citalopram. 8. Insomnia - on amitryp 9. GERD - stable. 10. Hair loss - check thyroid. 11. Murmur - 2/6 systolic murmur - check echo. 12. Vaginal discharge - will do pelvic US and ua to further evaluate. She has had it for a year. GER documented in this encounter Plan of Treatment Care Team Description Date [place] [address] [place] [address] [phone] 02/29/2020 Office Visit Urology Order Schedule Name Type Priority Associated Diag noses Ordered: 09/24/2015 Microalbumin Random Lab Routine Type 2 bela betes mellitus without complication (HCC) Ordered: 09/24/2015 Urinalysis Reflex Lab Routine Vaginal disc harge Order Schedule Name Type Priority Associated Diag noses 1 Occurrences starting 09/24/2015 until 03/24/2016 Ambulatory referral to Outpatient Routine Chronic pain Pain Clinic Referral documented as of this encounter Results * Echo Complete with Doppler and Color Flow (05/08/2016 8:15 AM CDT) Ejection 60 % PROSOLV Fraction Specimen Impressions Performed At 1. Normal left ventricular systolic function, wit h an estimated ejection PROSOLV fraction of 60%. 2. No significant valvular abnormal ities. 3. Estimated central venous and jolie n left atrial pressures are normal. No previous study available for kunal gross. Amelie Rosa M.D. (Electronically Signed) Final Date: 08 May 2016 11 :13 Narrative Performed At [facility] ECHOCARDIO[facility] RE[facility] Name: ISIAH BENÍTEZ Date: 05/08/2016 07:34 Chart #: [id number] : 1950 Location: [facility] OP Sono: hannah Age: 65 Gender: F Referring: YRN SHARP MD Room #: OP Fellow: Indication:Essential (primary) hypert ension Procedure: 90454 Complete Echo 2D/Col orflow/Doppler BP: 140 / [...] ISIAH BENÍTEZ Date: 05/08/2016 07:34 Chart #: [id number] : 1950 Location: [facility] OP Sono: hannah Age: 65 Gender: F Referring: YRN SHARP MD Room #: OP Fellow: Indication:Essential (primary) hypertension Procedure: 72178 Complete Echo 2D/Colorflow/Doppler BP: 140 / 86 [...] Organization Address City/State/Zipcode Ph one Number PROSOLV * Vitamin B12 (09/24/2015 11:55 AM SLEDGER) VITAMIN B12 436 239 - 931 pg/mL [facility] Specimen Blood Performing Organization Address [facility] one Number [address] [address] LABORATORIES * Thyroid Stimulating Hormone (09/24/2015 11:55 AM SLEDGER) Thyroid 0.11 (L) 0.47 - 4.68 uIU/mL [facility] Hormone LABORATORIES Specimen Performing Organization Address City/[facility] one Number [address] [address] LABORATORIES * Lipid Panel (09/24/2015 11:55 AM SLEDGER) Cholesterol 266 (H) 100 - 200 mg/dL [facility] LABORATORIES HDL Cholesterol 83 40 - 110 mg/dL [facility] Non-HDL 183 (H) 0 - 130 mg/dL [facility] REGIONAL LABORATORIES Triglycerides 203 (H) 0 - 150 mg/dL [facility] LDL Cholesterol 142 (H) 0 - 99 mg/dL [facility] Cholesterol/HDL 3.2 0.0 - 4.5 [facility] REGIONAL LABORATORIES Specimen Performing Organization Address [facility] one Number [address] [address] LABORATORIES * Hemoglobin A1C (09/24/2015 11:55 AM SLEDGER) Hemoglobin A1C 7.0 (H) 4.0 - 5.6 % [facility] Comment: REGIONAL Non-diabetic 4.0 - LABORATORIES 5.6 % Prediabetes 5.7 - 6.4 % Diabetes >= 6.5 % Specimen Performing Organization Address [facility] one Number [address] [id number] LABORATORIES * Comprehensive Metabolic Panel (09/24/2015 11:55 AM SLEDGER) Sodium 141 133 - 147 MEQ/L [facility] Potassium 4.2 3.5 - 5.3 MEQ/L [facility] Chloride 101 96 - 112 MEQ/L [facility] Carbon Dioxide 29 20 - 32 MEQ/L [facility] Anion Gap 10 5 - 17 [facility] Calcium 9.7 8.4 - 10.5 mg/dL [facility] Glucose 141 (H) 70 - 100 mg/dL [facility] Protein Total 7.7 6.0 - 8.2 g/dL [facility] Serum [facility] Albumin 4.4 3.5 - 5.0 g/dL [facility] Alkaline 100 42 - 140 IU/L [facility] Phosphatase [facility] Alanine 37 13 - 69 IU/L [facility] Aminotransferas [facility] e LABORATORIES Aspartate 28 15 - 46 IU/L [facility] Bilirubin Total 0.6 0.2 - 1.3 mg/dL [facility] Blood Urea 18 7 - 26 mg/dL [facility] Nitrogen [facility] Creatinine 0.7 0.4 - 1.1 mg/dL [facility] eGFR Female AA 101 60 - 200 [facility] Comment: REGIONAL Chronic Kidney Disease less LABORATORIES than 60 mL/min/1.73 sq.m Kidney failure less than 15 mL/min/1.73 sq.m eGFR Female 85 60 - 200 [facility] Non-AA Comment: REGIONAL Chronic Kidney Disease less LABORATORIES than 60 mL/min/1.73 sq.m Kidney failure less than 15 mL/min/1.73 sq.m Specimen Performing Organization Address City/State/Zipcode Ph one Number [address] [address] LABORATORIES * CBC and Diff (manual diff if necessary) (09/24/2015 11:55 AM SLEDGER) WBC 11.41 (H) 4.00 - 11.00 TH/uL [facility] RBC 4.64 4.00 - 5.00 MIL/uL [facility] Hemoglobin 15.2 (H) 12.0 - 15.0 g/dL [facility] Hematocrit 46 (H) 36 - 45 % [facility] MCV 99 80 - 99 fL [facility] MCH 33 27 - 34 pg [facility] MCHC 33 32 - 36 % [facility] RDW 14.3 9.0 - 14.5 % [facility] Platelet Count 221 140 - 400 TH/uL [facility] MPV 9.8 9.4 - 12.3 fL [facility] Nucleated RBCs 0 0 - 0 /100 [facility] % Neutrophils 66 45 - 78 % [facility] %Lymphocytes 23 15 - 47 % [facility] %Monocytes 8 0 - 12 % [facility] %Eosinophils 2 0 - 7 % [facility] %Basophils 1 0 - 2 % [facility] % Imm Grans 0 0 - 1 % [facility] # Granulocytes 7.59 (H) 1.70 - 6.80 TH/uL [facility] # Lymphocytes 2.65 1.00 - 3.30 TH/uL [facility] # Monocytes 0.95 (H) 0.20 - 0.90 TH/uL [facility] # Eosinophils 0.17 0.00 - 0.40 TH/uL [facility] # Basophils 0.06 0.00 - 0.10 TH/uL [facility] Specimen Performing Organization Address City/State/Zipcode Ph one Number [address] [address] LABORATORIES documented in this encounter Visit Diagnoses Diagnosis Type 2 diabetes mellitus without compli cation (HCC) COPD (chronic obstructive pulmonary dis ease) (HCC) Chronic airway obstruction, not elsewhe re classified Essential hypertension Unspecified essential hypertension Hyperlipidemia Other and unspecified hyperlipidemia Chronic pain Other chronic pain Elevated MCV Other abnormality of red blood cells MATA (generalized anxiety disorder) Generalized anxiety disorder Hair loss Unspecified alopecia Vaginal discharge Leukorrhea, not specified as infective documented in this encounter"
--- OUTSIDE RECORDS SUMMARY | 2019-11-28 22:40 | XMS REPORT | Encounter Summary ---
Author Author [facility] Organization [facility] Address Unknown Phone Unavailable Care Team Providers Care Coffin Maker Name Role Phone PCP Unavailable Encounter Details Care Team Description Date Type Department James Foster DO [address] [place] [address] [phone] [facility] [address] [place] [address] Social History Date Tobacco Use Types Packs/Day Years Used Never Assessed Sex Assigned at Date Recorded Female Industry Job Start Date Occupation Not on file Not on file Not on file Travel End Travel History Travel Start No recent travel history available. documented as of this encounter Plan of Treatment Care Team Description Date [place] [address] [place] [address] [phone] 02/29/2020 Office Visit Urology documented as of this encounter Procedures Comments Procedure Name Priority Date/Time Associated Diag nosis XR FINGERS MIN 2 VIEWS Routine 05/08/2005 LEFT 5:[address] HEAD WO CONTRAST Routine 05/08/2005 5:00 PM CDT documented in this encounter Results * XR Fingers min 2 views left (05/08/2005 5:21 PM CDT) Specimen Narrative Performed At Report LEVI Name: ISIAH BENÍTEZ P Date of : 1 10/15/1949 Sex: F Check-in #: [id number] Jose#/Jacket#: [id number] Room/Bed/Location: Medical Rec ord #: [id number] Attending Physician: [id number] TIFFANIE Corea Admitting Diagnosis: 959.4 HAND INJURY NOS Procedure Requested: 03089 DX FINGERS M IN 2 VIEWS LEFT L Reason For Exam: 959.4 HAND INJURY NOS Requested By: TIFFANIE Corea DO E xam Ordered: 05/08/20051734 Exam Date/Time: 05/08/20051725 Ch laura-in Date/Time: 05/08/20051734 These images and this report have been reviewed and edited by the Staff Radiologist. Left second finger Reason for exam: Pain following a fall 3 views are obtained. There appears to be a fracture of the dorsal proximal distal phalanx. No other abnor mality is seen. Impression: Fracture of the proximal di stal phalanx. Sanitation Worker Cleaning Equipment- ALEX MOBLEY M.D. , Staff Radiologist Dictated By- ALEX MOBLEY M.D., Sta ff Radiologist Staff Physician- ALEX MOLBEY M.D., Staff Radiologist Authenticated By- ALEX MOBLEY M.D. 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 Left second finger Reason for exam: Pain following a fall 3 views are obtained. There appears to b e a fracture of the dorsal proximal distal phalanx. No other abnormality is seen. Impression: Fracture of the proximal distal phalanx. Sanitation Worker Cleaning Equipment- ALEX MOBLEY M.D., Staff Radiologist Dictated By- ALEX MOBLEY M.D., Staff Radiologist Staff Physician- ALEX MOBLEY M.D., Staff Radiologist Authenticated By- ALEX MOBLEY M.D., Staff Radiologist Released Date Time- 05/09/05 0541 [id number] Performing Organization Address City/State/Zipcode Ph one Number LEVI * CT Head wo contrast (05/08/2005 5:00 PM CDT) Specimen Narrative Performed At Report LEVI Name: ISIAH BENÍTEZ P Date of : 10/15/1949 Sex: F Check-in #: [id number] Jose#/Jacket#: [id number] Room/Bed/Location: [facility] Rec ord #: [id number] Attending Physician: [id number] TIFFANIE Corea Admitting Diagnosis: 780.79 MALAISE AND FATIGUE NEC Procedure Requested: [id number] CT HEAD WO C ONTRAST L Reason For Exam: 780.79 MALAISE AND FAT IGUE NEC Requested By: TIFFANIE Corea DO E xam Ordered: 05/08/20051733 Exam Date/Time: 05/08/2005 171 Ch laura-in Date/Time: 05/08/20051733 These images and this report have been reviewed and edited by the Staff Radiologist. Examination performed: CT scan head. Reason for exam: Fall Date of Examination: 08 May 2005. Comparison: none Technique: 5 mm helical images are obta ined from the foramen magnum to the vertex. No intravenous contrast is administered. Findings: The ventricular system is mid line without evidence of dilatation. Normal craven-white different iation is maintained. No extra-axial fluid collection is identif ied. No intraparenchymal mass lesion or hemorrhage is present. The vi sualized portions of the orbits, paranasal sinuses and mastoid air cells appear clear. Impression: No acute intracranial proce ss identified. 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 Examination performed: CT scan head. Reason for exam: Fall Date of Examination: 08 May 2005. Comparison: none Technique: 5 mm helical images are obtained from the foramen magnum to the vertex. No intravenous contrast is administered. Findings: The ventricular system is midline without evidence of dilatation. Normal craven-white differentiation is maintained. No extra-axial fluid collection is identified. No intraparenchymal mass lesion or hemorrhage is present. The visualized portions of the orbits, paranasal sinuses and mastoid air cells appear clear. Impression: No acute intracranial process identified. Sanitation Worker Cleaning Equipment- KELLY GAN M.D., Staff Radiologist Dictated By- REYNOLD RINCON D.O., Resident Staff Physician- KELLY GAN M.D., Staff Radiologist Authenticated By- KELLY GAN M.D., Staff Radiologist Released Date Time- 05/08/05 1758 [id number] Performing Organization Address City/State/[facility] Number [facility] documented in this encounter Visit Diagnoses Diagnosis Open wound of forehead, without mention of complication documented in this encounter
--- OUTSIDE RECORDS SUMMARY | 2019-11-28 22:40 | XMS REPORT | Encounter Summary ---
Author Author [facility] Organization [facility] Address Unknown Phone Unavailable Care Team Providers Care Heat Transfer Technician Name Role Phone Ebony Sharp MD PCP Reason for Visit * Reason Comments Shortness of Breath pt reports hx of COPD and o brianne the past three days has had increased SOA. pt reports wearing O2 at home but has n ot had any to wear since yesterday. pt 86% on RA Encounter Details Care Team Description Date Type Department Antonio Mayer, [address] [facility] [place] [address] Dyspnea (Primary Dx); COPD (chronic obstructive pulmonary disease) (HCC) 09/14/2015 Emergency [facility] [address] [place] [address] Social History Date Tobacco Use [...] Signs Reading Time Taken Comments Vital Sign 166/90 09/14/2015 11:32 AM BUSINESS ANALYTICS SPECIALIST Blood Pressure 84 09/14/2015 11:32 AM BUSINESS ANALYTICS SPECIALIST Pulse 36.8 C (98.3 F) 09/14/2015 5:31 AM BUSINESS ANALYTICS SPECIALIST Temperature 22 09/14/2015 11:32 AM BUSINESS ANALYTICS SPECIALIST Respiratory Rate 98% 09/14/2015 11:32 AM BUSINESS ANALYTICS SPECIALIST Oxygen Saturation - - Inhaled Oxygen Concentration 92.5 kg (204 lb) 09/14/2015 5:31 AM BUSINESS ANALYTICS SPECIALIST Weight 152.4 cm (5') 09/14/2015 5:31 AM BUSINESS ANALYTICS SPECIALIST Height 39.84 09/14/2015 5:31 AM BUSINESS ANALYTICS SPECIALIST Body Mass Index documented in this encounter Discharge Instructions * Instructions* Mayer DO Antonio - 09/14/2015 Discharge Instructions:COPD You have been diagnosed with chronic obstructive pulmonary disease (COPD). This is a name given to a group of diseases that limit the flow of air in and out of your lungs. This makes it harder to breathe. With COPD, you are also more likely to get lung infections. COPD includes chronic bronchitis and emphysema. COPD is most often caused by heavy, long-term cigarette smoking. Home care Quitsmoking If you smoke, quit. It is the best thing you can do for your COPD and your ov [facility]. Join a stop-smoking program. There are even telephone, text message, and Inte rnet programs to help you quit. Ask yourhealth care providerabout medications or other methods to help yo u quit. Ask family members to quit smoking as well. Don't allow people to smoke in your home, in your car,or when they are arou nd you. Protect yourself from infection Wash your hands often. Do your best tokeep your hands away from your face. Most germs are spread from your hands to your mouth. Get a flu shot every year. Also ask yourprovider about pneumonia vaccines. Avoid crowds. It's especially important to do this in the winter when more pe ople have colds and flu. To stay healthy, get enough sleep, exercise regularly, and eat a balanced t. You should: Get about 8 hours of sleep every night. Try to exercise for at least 30 minutes on most days. Have healthy foods including fruits and vegetables, 100% whole grains, lean m eats and fish, and low-fat dairy products. Try to stay away from foods high in f ats and sugar. Take your medications Take your medicationsexactly as directed. Don't skip doses. Manage your stress Stress can make COPD worse. Use this stress management technique: Find a quiet place and sit or lie in a comfortable position. Close your eyes and perform breathing exercises for several minutes. Ask your provider about the best way to breathe. Pulmonary rehabilitation Pulmonary rehab can help you feel better. These programs include exercise, br eathing techniques, information about COPD, counseling, and help for smokers. Askyour provider or your local hospital about programs in your area. [phone] The [employer]. [address] [place] [address], [place], [place] [address]. All rights reserved. This information is not intended as a substitute for pro fessional medical care. Always follow your healthcare professional's instruction s. documented in this encounter Medications at Time of Discharge Start Date End Date Medication Sig Dispensed Refills 09/05/2015 09/15/2015 predniSONE (DELTASONE) 20 Take three 15 tablet 0 MG tablet tablets (60 mg total) by mouth daily. 02/14/2016 albuterol ( ACCUNEB) Take 1 ampule 0 1.25 mg/3 mL nebulizer by solution nebulization every 6 (six) hours as needed for wheezing. 09/24/2015 amitriptyline (ELAVIL) 25 Take 25 mg by 0 MG tablet mouth nightly. 06/26/2016 aspirin 81 MG EC tablet Take 81 mg by 0 mouth daily. 09/24/2015 citalopram (CELEXA) 20 MG Take 20 mg by 0 tablet mouth daily. 09/05/2015 09/24/2015 famotidine (PEPCID) 20 MG Take one 60 tablet 0 tablet tablet (20 mg total) by mouth 2 (two) times a day. 09/24/2015 gabapentin (NEURONTIN) Take 300 mg 0 300 MG capsule by mouth 3 (three) times a day. 09/05/2015 08/07/2016 HYDROcodone-acetaminophen Take one 20 tablet 0 (NORCO) 5-325 mg per tablet by tablet mouth every 6 (six) hours as needed for pain. Do not drive while taking this medication. 09/24/2015 insulin glargine (LANTUS) Inject 15 0 100 unit/mL injection Units under the skin nightly. 12/18/2015 ipratropium-albuterol Inhale 3 mL 4 0 (DUO-NEB) 0.5-3 mg/3 mL (four) times nebulizer a day. 09/24/2015 metoprolol tartrate Take 100 mg 0 (LOPRESSOR) 100 MG tablet by mouth 2 (two) times a day. 09/24/2015 simvastatin (ZOCOR) 20 MG Take 20 mg by 0 tablet mouth nightly. documented as of this encounter Progress Notes * Mala Lynn - 09/14/2015 11:06 AM BUSINESS ANALYTICS SPECIALIST SW received phone call from Luigi with [facility] and he stated that all of pt's equipment has been delivered to pt's home. RAYMOND called ED to advise of the above and pt okay to d/c to home from social servi sudeep perspective. NESS ANALYTICS SPECIALIST documented in this encounter Consult Notes * Mala Lynn - 09/14/2015 9:36 AM BUSINESS ANALYTICS SPECIALIST SW received phone call from ED advising that pt presented to hospital due to her oxygen concentrator at home no longer worker. Per report, pt called the provid er and they were supposed to go to her home yesterday but they never showed. SW met with pt at bedside and she is unable to recall name of provider. She gav e permission for this worker to call her home to speak with family to obtain nam e of provider. RAYMOND called and spoke with pt's son-in-law who stated provider is [facility]. RAYMOND called Darvin Valadez with [facility] and he stated that Yannick is long wall shear operator. RAYMOND called Yannick at [phone] and left vm. RAYMOND called Luigi Martinez, Dumpman with [facility] and explained the situat ion. He stated he will have a regional driver out to pt's home within the next hour to d vaniabrianne new concentrator. He will call this worker back as soon as he has spoken with regional driver. RAYMOND called pt's home and spoke with pt's dtr to advise of the abov e. She will be home to receive the equipment. NESS ANALYTICS SPECIALIST documented in this encounter ED Notes * Susy Wilson, RN - 09/14/2015 11:55 AM BUSINESS ANALYTICS SPECIALIST PT UP IN ROOM WITHOUT DIFF. RESP UNLABORED. NESS ANALYTICS SPECIALIST * Susy Wilson RN - 09/14/2015 11:35 AM BUSINESS ANALYTICS SPECIALIST LUNCH TRAY GIVEN. NESS ANALYTICS SPECIALIST * Yuki Goel, RN - 09/14/2015 11:27 AM BUSINESS ANALYTICS SPECIALIST Spoke with pt son, David, reported that oxygen has been delivered to house and is set up ready for patient use. Reports patient does not usually use portable tank and only lives 15 minutes from hospital. Ok per Dr. Mayer, ready for dischar ge. NESS ANALYTICS SPECIALIST * Calvin Garcia - 09/14/2015 8:22 AM BUSINESS ANALYTICS SPECIALIST Social work called. No answer. Voice message left to call ED. NESS ANALYTICS SPECIALIST * Yuki Goel, ADAM - 09/14/2015 8:20 AM BUSINESS ANALYTICS SPECIALIST Social work called. Message left to call ED. NESS ANALYTICS SPECIALIST * Antonio Mayer DO - 09/14/2015 7:28 AM BUSINESS ANALYTICS SPECIALIST 09/14/2015 [facility] History Chief Complaint Patient presents with Shortness of Breath pt reports hx of COPD and over the past three days has had increased SOA. pt r eports wearing O2 at home but has not had any to wear since yesterday. pt 86% on RA HPI 65-year-old Afro-[place]ian female with history of oxygen dependent COPD is presen ting for shortness of air. The compressor on her home oxygen device had broke a nd her medical supply company was to deliver one yesterday however they failed t o do so. She has had increasing shortness of air now over the past 24 hours, es pecially with any activity. She denies any fevers or chills or any chest pain. Past Medical History Diagnosis Date COPD (chronic obstructive pulmonary disease) Diabetes mellitus Hypertension Arthritis Hyperlipidemia Past Surgical History Procedure Laterality Date section, classic Cholecystectomy Hysterectomy No family history on file. History Substance Use Topics Smoking status: Former Smoker Quit date: 09/14/2009 Smokeless tobacco: Never Used Alcohol Use: No Review of Systems Physical Exam BP 163/96 mmHg | Pulse 86 | Temp(Src) 36.8 C (98.3 F) (Oral) | Resp 23 | Ht 1.524 m (5') | Wt 92.534 kg (204 lb) | BMI 39.84 kg/m2 | SpO2 98% Physical Exam Constitutional: She is oriented to person, place, and time. She appears well-dev eloped and well-nourished. No distress. HENT: Head: Normocephalic and atraumatic. Eyes: Conjunctivae and EOM are normal. Pupils are equal, round, and reactive to light. Neck: Normal range of motion. Neck supple. Cardiovascular: Normal rate, regular rhythm, normal heart sounds and intact dist al pulses. Pulmonary/Chest: Effort normal and breath sounds normal. No respiratory distress . She has no wheezes. She has no rales. Abdominal: Soft. Bowel sounds are normal. Musculoskeletal: Normal range of motion. She exhibits no edema or tenderness. Neurological: She is alert and oriented to person, place, and time. No cranial n erve deficit. Skin: Skin is warm and dry. Psychiatric: She has a normal mood and affect. Nursing note and vitals reviewed. ED Course No signs were improving after she is placed on oxygen here in the emergency depa rtment. However given the ongoing hypertension she was given 10 mg hydralazine IV which she tolerated well. Social work was contacted for oxygen equipment at home which she was able to hav e delivered today and this was confirmed with family. Therefore the patient be discharged home with follow-up with her doctor. Return precautions were discuss ed. Procedures 11:29 AM EKG: normal EKG, normal sinus rhythm, interpreted by ED Attending Basilio LEW The labs from this visit are Results for orders placed or performed during the hospital encounter of 09/14/15 (from the past 24 hour(s)) Troponin Result Value Ref Range Troponin <0.01 0.00 - 0.03 ng/mL CBC and Diff (manual diff if necessary) Result Value Ref Range WBC 7.87 4.00 - 11.00 TH/uL RBC 3.78 (L) 4.00 - 5.00 MIL/uL Hemoglobin 12.2 12.0 - 15.0 g/dL Hematocrit 39 36 - 45 % MCV 102 (H) 80 - 99 fL MCH 32 27 - 34 pg MCHC 32 32 - 36 % RDW 14.3 9.0 - 14.5 % Platelet Count 150 140 - 400 TH/uL MPV 9.8 9.4 - 12.3 fL %Segmented Neutrophils 76 45 - 78 % %Lymphocytes 17 15 - 47 % %Monocytes 6 0 - 12 % %Eosinophils 1 0 - 7 % %Basophils 0 0 - 2 % # Granulocytes 5.97 1.7 - 6.8 TH/uL # Lymphocytes 1.36 1.0 - 3.3 TH/uL # Monocytes 0.44 0.2 - 0.9 TH/uL # Eosinophils 0.08 0.0 - 0.4 TH/uL # Basophils 0.02 0.0 - 0.1 TH/uL Basic Metabolic Panel Result Value Ref Range Sodium 142 133 - 147 MEQ/L Potassium 4.5 3.5 - 5.3 MEQ/L Chloride 99 96 - 112 MEQ/L Carbon Dioxide 35 (H) 20 - 32 MEQ/L Anion Gap 8 5 - 17 Calcium 8.8 8.4 - 10.5 mg/dL Glucose 145 (H) 70 - 100 mg/dL Blood Urea Nitrogen 18 7 - 26 mg/dL Creatinine 0.7 0.4 - 1.1 mg/dL GFR Female AA 101 60 - 200 GFR Female Non-AA 85 60 - 200 The radiology results are XR Chest 2 views (PA and lateral) Final Result IMPRESSION: Low lung volume. Bibasilar subsegmental atelectasis. No consolidation. READING SITE: [facility] ATTESTATION STATEMENT: The staff radiologist has personally reviewed the images and dictated, reviewed or edited the final report. Ebony Sharp MD [address] [facility] [address] [facility] [address] ED Clinical Impression SNOMED CT(R) 1. Dyspnea DYSPNEA 2. COPD (chronic obstructive pulmonary disease) CHRONIC OBSTRUCTIVE LUNG DISEAS E Antonio Mayer DO 09/14/15 1124 Antonio Mayer DO 09/14/15 1130 NESS ANALYTICS SPECIALIST * Marisa Rodas RN - 09/14/2015 5:34 AM BUSINESS ANALYTICS SPECIALIST pt reports hx of COPD and over the past three days has had increased SOA. pt rep orts wearing O2 at home but has not had any to wear since yesterday. pt 86% on R A NESS ANALYTICS SPECIALIST documented in this encounter Plan of Treatment Care Team Description [place] [address] [place] [address] 02/29/2020 Office Visit Urology documented as of this encounter Procedures Comments Procedure Name Priority Date/Time Associated Diag nosis OXYGEN STAT 09/14/2015 10:08 AM BUSINESS ANALYTICS SPECIALIST CBC AND DIFF (MANUAL DIFF STAT 09/14/2015 IF NECESSARY) 7:05 AM BUSINESS ANALYTICS SPECIALIST BASIC METABOLIC PANEL STAT 09/14/2015 7:05 AM BUSINESS ANALYTICS SPECIALIST XR CHEST 2 VIEWS (PA AND STAT 09/14/2015 LATERAL) 6:15 AM BUSINESS ANALYTICS SPECIALIST TROPONIN STAT 09/14/2015 5:50 AM BUSINESS ANALYTICS SPECIALIST OXYGEN STAT 09/14/2015 5:38 AM BUSINESS ANALYTICS SPECIALIST PULSE OXIMETRY, STAT 09/14/2015 CONTINUOUS 5:38 AM BUSINESS ANALYTICS SPECIALIST ECG STAT 09/14/2015 5:33 AM BUSINESS ANALYTICS SPECIALIST documented in this encounter Results * Basic Metabolic Panel (09/14/2015 7:05 AM BUSINESS ANALYTICS SPECIALIST) Sodium 142 133 - 147 MEQ/L [facility] Potassium 4.5 3.5 - 5.3 MEQ/L [facility] Chloride 99 96 - 112 MEQ/L [facility] Carbon Dioxide 35 (H) 20 - 32 MEQ/L [facility] Anion Gap 8 5 - 17 [facility] Calcium 8.8 8.4 - 10.5 mg/dL [facility] Glucose 145 (H) 70 - 100 mg/dL [facility] Blood Urea 18 7 - 26 mg/dL [facility] Nitrogen [facility] Creatinine 0.7 0.4 - 1.1 mg/dL [facility] eGFR Female AA 101 60 - 200 [facility] Comment: [facility] Chronic Kidney Disease less [facility] than 60 mL/min/1.73 sq.m Kidney failure less than 15 mL/min/1.73 sq.m eGFR Female 85 60 - 200 [facility] Non-AA Comment: [facility] AGUSTINS Chronic Kidney Disease less [facility] than 60 mL/min/1.73 sq.m Kidney failure less than 15 mL/min/1.73 sq.m Specimen Blood Narrative Performed At This order is a replacement of the rejected order wit h accession number [facility] [id number] [facility] Performing Organization Address City/State/Zipcode Ph one Number [facility] [address] [facility] [place] [address] [facility] [address] [facility] [place] [address], [facility] * CBC and Diff (manual diff if necessary) (09/14/2015 7:05 AM BUSINESS ANALYTICS SPECIALIST) WBC 7.87 4.00 - 11.00 TH/uL [facility] RBC 3.78 (L) 4.00 - 5.00 MIL/uL [facility] Hemoglobin 12.2 12.0 - 15.0 g/dL [facility] Hematocrit 39 36 - 45 % [facility] MCV 102 (H) 80 - 99 fL [facility] MCH 32 27 - 34 pg [facility] MCHC 32 32 - 36 % [facility] RDW 14.3 9.0 - 14.5 % [facility] Platelet Count 150 140 - 400 TH/uL [facility] MPV 9.8 9.4 - 12.3 fL [facility] % Neutrophils 76 45 - 78 % [facility] %Lymphocytes 17 15 - 47 % [facility] %Monocytes 6 0 - 12 % [facility] %Eosinophils 1 0 - 7 % [facility] %Basophils 0 0 - 2 % [facility] # Granulocytes 5.97 1.7 - 6.8 TH/uL [facility] # Lymphocytes 1.36 1.0 - 3.3 TH/uL [facility] # Monocytes 0.44 0.2 - 0.9 TH/uL [facility] # Eosinophils 0.08 0.0 - 0.4 TH/uL [facility] # Basophils 0.02 0.0 - 0.1 TH/uL [facility] Specimen Blood Narrative Performed At This order is a replacement of the rejected order wit h accession number [facility] [id number] [facility] Performing Organization Address City/State/Zipcode Ph one Number [facility] [address] [facility] [place] [address] [facility] [address] [facility] [place] [address], [facility] * XR Chest 2 views (PA and lateral) (09/14/2015 6:15 AM BUSINESS ANALYTICS SPECIALIST) Specimen Impressions Performed At IMPRESSION: Low lung volume. Bibasilar subsegmental a telectasis. No [facility] consolidation. READING SITE: [facility] ATTESTATION STATEMENT: The staff radiologist has personally re viewed the images and dictated, reviewed or edited the final report. Narrative Performed At Patient: JACKELIN ISIAH Do ABIASHWINJEFFREY Sex#: F # [id number] Jose#: [facility]: [id number] Procedure Requested: [id number] XR CHEST 2 VIEWS (PA AND LATERAL) Reason for Exam: Shortness of Air Exam Ordered: 09/14/2015 05 39 Exam Date/Time: 09/14/2015 061 5 Check-in Date/Time: 09/14/2015 0539 XR CHEST 2 VIEWS (PA AND LATERAL) INDICATION: Shortness of Air. COMPARISON STUDY: 09/05/2015. FINDINGS: Lungs: Low lung volume. Bibasilar subse gmental atelectasis. No consolidation. Remote granulomatous dis ease. Pleura: No pleural effusion or pneumoth orax. Heart and Mediastinum: Stable heart and mediastinum. Bones: No acute osseous abnormality. Procedure Note Interface, Rad Results In - 09/14/2015 10:55 AM BUSINESS ANALYTICS SPECIALIST Patient: ISIAH BENÍTEZ Sex#: F # [id number] Jose#: Location: [place] [id number] Procedure Requested: [id number] XR CHEST 2 VIEWS (PA AND LATERAL) Reason for Exam: Shortness of Air Exam Ordered: 09/14/2015538 Exam Date/Time: 09/14/2015614 Check-in Date/Time: 09/14/2015 0539 XR CHEST 2 VIEWS (PA AND LATERAL) INDICATION: Shortness of Air. COMPARISON STUDY: 09/05/2015. FINDINGS: Lungs: Low lung volume. Bibasilar subsegmental atelectasis. No consolidation. Remote granulomatous disease. Pleura: No pleural effusion or pneumothorax. Heart and Mediastinum: Stable heart and mediastinum. Bones: No acute osseous abnormality. IMPRESSION: Low lung volume. Bibasilar subsegmental atelectasis. No consolidation. READING SITE: [facility] ATTESTATION STATEMENT: The staff radiologist has personally reviewed the images and dictated, reviewed or edited the final report. Performing Organization Address City/[facility] one Number LEVI * Troponin (09/14/2015 5:50 AM BUSINESS ANALYTICS SPECIALIST) Troponin <0.01 0.00 - 0.03 ng/mL BETHANYShazia Comment: ALBERT MARBIN Troponin Value [facility] Interpretation 0.00 - 0.03 Healthy 0.04 - 0.12 Increased Cardiac Risk >0.12 Myocardial Infarction Troponin may not become elevated until 6 to 8 hours after onset of symptoms. 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 : 1950 Requested By: CHAVA ORTIZ Order Number: [id number] Reading MD: Medardo Alcaraz Measurements Intervals [place] Rate: 71 P: 51 AL: 140 QRS: 42 QRSD: 98 T: 49 QT: 400 QTc: 435 Interpretive Statements SINUS RHYTHM Compared to ECG 09/05/2015 15:51:41 No significant changes Electronically Signed On 09-15-2015 17:1 3:19 BUSINESS ANALYTICS SPECIALIST by Medardo Alcaraz Performing Organization Address City/State/Zipcode Ph one Number [email or web address] documented in this encounter Visit Diagnoses Diagnosis Dyspnea Other dyspnea and respiratory abnormali ty COPD (chronic obstructive pulmonary dis ease) (HCC) Chronic airway obstruction, not elsewhe re classified documented in this encounter Administered Medications Action Date Dose Rate Site Medication Order MAR Action 09/14/2015 7:26 AM BUSINESS ANALYTICS SPECIALIST 100 mcg fentaNYL (SUBLIMAZE) 50 mcg/mL injection Given 100 mcg 100 mcg, Intravenous, Once, 09/14/15 at 0624, For 1 dose 09/14/2015 7:37 AM BUSINESS ANALYTICS SPECIALIST 10 mg hydrALAZINE (APRESOLINE) injection 10 mg Given 10 mg, Intravenous, Once, 09/14/15 a t 0624, For 1 dose 09/14/2015 5:42 AM BUSINESS ANALYTICS SPECIALIST 3 mL ipratropium-albuterol (DUO-NEB) 0.5-3 Given mg/3 mL nebulizer solution 3 mL 3 mL, Inhalation, Once, 09/14/15 at 0534, For 1 dose 09/14/2015 10:02 AM BUSINESS ANALYTICS SPECIALIST 3 mL ipratropium-albuterol (DUO-NEB) 0.5-3 Given mg/3 mL nebulizer solution 3 mL 3 mL, Inhalation, Once, 09/14/15 at 0928, For 1 dose documented in this encounter"
--- OUTSIDE RECORDS SUMMARY | 2019-11-28 22:40 | XMS REPORT ---
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 Name Role Phone LAURIE LYLE Unavailable PROBLEMS Type Condition ICD9-CM Code SGH53-LN Code Onset Dates Condition S tatus SNOMED Code Problem COPD (chronic obstructive pulmonary disease) J44.9 Active 69408707 Problem Diabetes E11.9 Active 93287656 Problem Diabetic neuropathy E11.40 Active 416509605 Problem Arthritis M19.90 Active 3801171 ALLERGIES No Information ENCOUNTERS Encounter Location Date Diagnosis [facility] [address] [facility] [id number] [address] [place] [id number] December, [facility] [address] [id number] [address] [place] [address] Aug, Arthritis M19.90 [facility] [address] [facility] [id number] [address] [place] [address] Jul, [facility] [address] [facility] [id number] [address] [place] [address] Jul, [facility] [address] [facility] [id number] [address] [place] [address] Jul, [facility] [address] [id number] [address] [place] [address] Jul, [facility] [address] [facility] [id number] [address] [place] [address] Jul, Diabetes E11.9 ; Diabetic ne uropathy E11.40 ; Arthritis M19.90 and COPD (chronic obstructive pulmonary disease) J44.9 [facility] [address] [facility] [id number] [address] [place] [id number] Jul, [facility] [address] [id number] [address] [place] [address], [place] [address] 23 Jun, 2015 [facility] [address] [id number] [address] [place] [address], [place] [address] 23 Jun, 2015 [facility] [address] [id number] [address] [place] [address], [place] [address] 17 Jun, 2014 [facility] [address] [id number] [address] [place] [address], [place] [address] 10 Jun, 2014 [facility] [address] [id number] [address] [place] [address], [place] [address] 15 May, 2015 [facility] [address] [id number] [address] [place] [address], [place] [address] 13 May, 2015 [facility] [address] [id number] [address] [place] [address], [place] [address] 07 May, 2015 [facility] [address] [id number] [address] [place] [address], [place] [address] 22 Sep, 2014 [facility] [address] [id number] [address] [place] [address], [place] [address] 21 Sep, 2014 [facility] [address] [id number] [address] [place] [address], [place] [address] 21 Sep, 2014 [facility] [address] [id number] [address] [place] [address], [place] [address] 15 Sep, 2014 [facility] [address] [id number] [address] [place] [address], [place] [address] 11 Sep, 2014 [facility] [address] [id number] [address] [place] [address], [place] [address] 09 Sep, 2014 [facility] [address] [id number] [address] [place] [address], [place] [address] 08 Sep, 2014 [facility] [address] [id number] [address] [place] [address], [place] [address] 03 Sep, 2014 [facility] [address] [id number] [address] [place] [address] [address] Apr, [facility] [address] [facility] [id number] [address] [place] [address] Mar, [facility] [address] [facility] [id number] [address] [place] [id number] Mar, [facility] [address] [facility] [id number] [address] [place] [address] Mar, [facility] [address] [facility] [id number] [address] [place] [address] Mar, [facility] [address] [facility] [id number] [address] [place] [address] Mar, [facility] [address] [facility] [id number] [address] [place] [address] Mar, Diabetes mellitus 250.00 ; C OPD (chronic obstructive pulmonary disease) 496 ; Anxiety 300.00 and Arthritis 716.90 [facility] [address] [facility] [id number] [address] [place] [address] Feb, [facility] [address] [facility] [id number] [address] [place] [address] Feb, [facility] [address] [facility] [id number] [address] [place] [address] Feb, [facility] [address] [facility] [id number] [address] [place] [address] Feb, [facility] [address] [facility] [id number] [address] [place] [address] Jan, Seborrheic keratosis 702.19 and Nevus 216.9 [facility] [address] [facility] [id number] [address] [place] [id number] Jan, [facility] [address] [facility] [id number] [address] [place] [address] Jan, Routine gynecological examin ation V72.31 ; Breast cancer screening V76.10 ; Hot flashes 627.2 ; Atypical nevi 216.9 and Constipation 564.00 [facility] [address] [id number] [address] [place] [address], [place] [address] Jan, [facility] [address] [id number] [address] [place] [address], [place] [address] December, [facility] [address] [id number] [address] [place] [address], [place] [address] December, [facility] [address] [id number] [address] [place] [address], [place] [address] Nov, [facility] [address] [id number] [address] [place] [address], [place] [address] Nov, [facility] [address] [id number] [address] [place] [address], [place] [address] Oct, [facility] [address] [id number] [address] [place] [address], [place] [address] 23 Oct, 2014 [facility] [address] [id number] [address] [place] [address], [place] [address] 18 Oct, 2014 [facility] [address] [id number] [address] [place] [address], [place] [address] 18 Oct, 2014 [facility] [address] [id number] [address] [place] [address], [place] [address] 17 Oct, 2014 [facility] [address] [id number] [address] [place] [address], [place] [address] 17 Oct, 2014 [facility] [address] [id number] [address] [place] [address] 16 Oct, 2014 [facility] [address] [id number] [address] [place] [address], [place] [address] 16 Oct, 2014 [facility] [address] [id number] [address] [place] [address], [place] [address] 11 Oct, 2014 [facility] [address] [id number] [address] [place] [address], [place] [address] 11 Oct, 2014 [facility] [address] [id number] [address] [place] [address], [place] [address] Sep, 2014 [facility] [address] [id number] [address] [place] [address], [place] [address] Sep, 2014 [facility] [address] [id number] [address] [place] [address], [place] [address] 19 Sep, 2014 [facility] [address] [id number] [address] [place] [address], [place] [address] 18 Sep, 2014 [facility] [address] [id number] [address] [place] [address], [place] [address] Sep, 2014 [facility] [address] [id number] [address] [place] [address], [place] [address] Sep, 2014 [facility] [address] [id number] [address] [place] [address], [place] [address] Sep, 2014 [facility] [address] [id number] [address] [place] [address], [place] [address] Aug, [facility] [address] [id number] [address] [place] [address], [place] [address] Aug, [facility] [address] [id number] [address] [place] [address], [place] [address] Aug, [facility] [address] [id number] [address] [place] [address], [place] [address] Aug, [facility] [address] [id number] [address] [place] [address], [place] [address] Aug, [facility] [address] [id number] [address] [place] [address], [place] [address] Aug, [facility] [address] [id number] [address] [place] [address], [place] [address] Jul, [facility] [address] [id number] [address] [place] [address], [place] [address] Jul, [facility] [address] [id number] [address] [place] [address], [place] [address] Jul, [facility] [address] [id number] [address] [place] [address], [place] [address] Jul, [facility] [address] [id number] [address] [place] [address], [place] [address] Jul, [facility] [address] [id number] [address] [place] [address], [place] [address] Jun, [facility] [address] [id number] [address] [place] [address], [place] [address] Jun, [facility] [address] [id number] [address] [place] [address], [place] [address] Jun, [facility] [address] [id number] [address] [place] [address], [place] [address] Jun, [facility] [address] [id number] [address] [place] [address], [place] [address] Jun, [facility] [address] [id number] [address] [place] [address], [place] [address] Jun, [facility] [address] [id number] [address] [place] [address], [place] [address] May, [facility] [address] [id number] [address] [place] [address], [place] [address] May, [facility] [address] [id number] [address] [place] [address], [place] [address] May, [facility] [address] [id number] [address] [place] [address] May, [facility] [address] [id number] [address] [place] [address], [place] [address] May, [facility] [address] [id number] [address] [place] [address], [place] [address] May, [facility] [address] [id number] [address] [place] [address], [place] [address] May, [facility] [address] [id number] [address] [place] [address], [place] [address] May, [facility] [address] [id number] [address] [place] [address], [place] [address] May, [facility] [address] [id number] [address] [place] [address], [place] [address] Apr, [facility] [address] [id number] [address] [place] [address], [place] [address] Apr, [facility] [address] [id number] [address] [place] [address], [place] [address] Apr, [facility] [address] [id number] [address] [place] [address], [place] [address] Apr, [facility] [address] [id number] [address] [place] [address], [place] [address] Mar, [facility] [address] [id number] [address] [place] [address], [place] [address] Mar, [facility] [address] [id number] [address] [place] [address], [place] [address] Mar, [facility] [address] [id number] [address] [place] [address], [place] [address] Mar, [facility] [address] [id number] [address] [place] [address], [place] [address] Mar, [facility] [address] [id number] [address] [place] [address], [place] [address] Mar, [facility] [address] [id number] [address] [place] [address], [place] [address] Feb, [facility] [address] [id number] [address] [place] [address], [place] [address] Feb, [facility] [address] [id number] [address] [place] [address], [place] [address] Feb, [facility] [address] [id number] [address] [place] [address], [place] [address] Feb, [facility] [address] [id number] [facility] [address] Feb, 2013 [facility] [address] [id number] [facility] [place] [address] Feb, [facility] [address] [id number] [address] [place] [address], [place] [address] Feb, 2013 [facility] [address] [id number] [address] [place] [address], [place] [address] Feb, 2013 [facility] [address] [id number] [address] [place] [address], [place] [address] Feb, 2013 [facility] [address] [id number] [address] [place] [address], [place] [address] Feb, [facility] [address] [id number] [address] [place] [address], [place] [address] Feb, [facility] [address] [id number] [address] [place] [address], [place] [address] Feb, [facility] [address] [id number] [address] [place] [address], [place] [address] Jan, [facility] [address] [id number] [address] [place] [address], [place] [address] Jan, [facility] [address] [id number] [address] [place] [address], [place] [address] Jan, [facility] [address] [id number] [address] [place] [address], [place] [address] Jan, [facility] [address] [id number] [address] [place] [address], [place] [address] Jan, [facility] [address] [id number] [address] [place] [address], [place] [address] Jan, [facility] [address] [id number] [address] [place] [address], [place] [address] Jan, [facility] [address] [id number] [address] [place] [address], [place] [address] Jan, [facility] [address] [id number] [address] [place] [address], [place] [address] Jan, [facility] [address] [id number] [address] [place] [address], [place] [address] Jan, [facility] [address] [id number] [address] [place] [address], [place] [address] Jan, [facility] [address] [id number] [address] [place] [address], [place] [address] Jan, [facility] [address] [id number] [address] [place] [address], [place] [address] Jan, [facility] [address] [id number] [address] [place] [address], [place] [address] Jan, [facility] [address] [id number] [address] [place] [address], [place] [address] Jan, [facility] [address] [id number] [address] [place] [address], [place] [address] Jan, [facility] [address] [id number] [address] [place] [address], [place] [address] Jan, [facility] [address] [id number] [address] [place] [address], [place] [address] December, [facility] [address] [id number] [address] [place] [address], [place] [address] December, [facility] [address] [id number] [address] [place] [address], [place] [address] December, [facility] [address] [id number] [address] [place] [address], [place] [address] December, [facility] [address] [id number] [address] [place] [address], [place] [address] December, [facility] [address] [id number] [address] [place] [address], [place] [address] December, [facility] [address] [id number] [address] [place] [address], [place] [address] Nov, [facility] [address] [id number] [address] [place] [address], [place] [address] Nov, [facility] [address] [id number] [address] [place] [address], [place] [address] Nov, [facility] [address] [id number] [address] [place] [address], [place] [address] Nov, [facility] [address] [id number] [address] [place] [address], [place] [address] Nov, [facility] [address] [id number] [address] [place] [address], [place] [address] Nov, [facility] [address] [id number] [address] [place] [address], [place] [address] Nov, [facility] [address] [id number] [address] [place] [address], [place] [address] Nov, [facility] [address] [id number] [address] [place] [address], [place] [address] Nov, [facility] [address] [id number] [address] [place] [address], [place] [address] Nov, [facility] [address] [id number] [address] [place] [address], [place] [address] Nov, [facility] [address] [id number] [address] [place] [address], [place] [address] Nov, [facility] [address] [id number] [address] [place] [address], [place] [address] Nov, [facility] [address] [id number] [address] [place] [address], [place] [address] Nov, [facility] [address] [id number] [address] [place] [address], [place] [address] Nov, [facility] [address] [id number] [address] [place] [address], [place] [address] Nov, [facility] [address] [id number] [address] [place] [address], [place] [address] Oct, [facility] [address] [id number] [address] [place] [address], [place] [address] Oct, [facility] [address] [id number] [address] [place] [address], [place] [address] Oct, [facility] [address] [id number] [address] [place] [address], [place] [address] Oct, [facility] [address] [id number] [address] [place] [address], [place] [address] Oct, [facility] [address] [id number] [address] [place] [address], [place] [address] Oct, [facility] [address] [id number] [address] [place] [address], [place] [address] Oct, [facility] [address] [id number] [address] [place] [address], [place] [address] Oct, [facility] [address] [id number] [address] [place] [address], [place] [address] Sep, [facility] [address] [id number] [address] [place] [address], [place] [address] Sep, [facility] [address] [id number] [address] [place] [address], [place] [address] Sep, [facility] [address] [id number] [address] [place] [address], [place] [address] Sep, [facility] [address] [id number] [address] [place] [address], [place] [address] Sep, [facility] [address] [id number] [address] [place] [address], [place] [address] Sep, [facility] [address] [id number] [address] [place] [address], [place] [address] Aug, [facility] [address] [id number] [address] [place] [address], [place] [address] Aug, [facility] [address] [id number] [address] [place] [address], [place] [address] Aug, [facility] [address] [id number] [address] [place] [address], [place] [address] Aug, [facility] [address] [id number] [address] [place] [address], [place] [address] Aug, [facility] [address] [id number] [address] [place] [address], [place] [address] Aug, [facility] [address] [id number] [address] [place] [address], [place] [address] Aug, [facility] [address] [id number] [address] [place] [address], [place] [address] Aug, [facility] [address] [id number] [address] [place] [address], [place] [address] Jul, [facility] [address] [id number] [address] [place] [address], [place] [address] Jul, [facility] [address] [id number] [address] [place] [address], [place] [address] Jul, [facility] [address] [id number] [address] [place] [address], [place] [address] Jul, [facility] [address] [id number] [address] [place] [address], [place] [address] Jul, [facility] [address] [id number] [address] [place] [address], [place] [address] Jul, [facility] [address] [id number] [address] [place] [address], [place] [address] Jul, [facility] [address] [id number] [address] [place] [address], [place] [address] Jul, [facility] [address] [id number] [address] [place] [address], [place] [address] Jul, [facility] [address] [id number] [address] [place] [address], [place] [address] 14 Jun, 2013 [facility] [address] [id number] [address] [place] [address], [place] [address] 14 Jun, 2013 [facility] [address] [id number] [address] [place] [address], [place] [address] Jun, [facility] [address] [id number] [address] [place] [address], [place] [address] Jun, [facility] [address] [id number] [address] [place] [address], [place] [address] Jun, [facility] [address] [id number] [address] [place] [address], [place] [address] Jun, [facility] [address] [id number] [address] [place] [address], [place] [address] 31 May, 2013 [facility] [address] [id number] [address] [place] [address], [place] [address] 31 May, 2013 [facility] [address] [id number] [address] [place] [address], [place] [address] 17 May, 2013 [facility] [address] [id number] [address] [place] [address], [place] [address] 17 May, 2013 [facility] [address] [id number] [address] [place] [address], [place] [address] 14 May, 2013 [facility] [address] [id number] [address] [place] [address], [place] [address] 14 May, 2013 [facility] [address] [id number] [address] [place] [address], [place] [address] 10 May, 2013 [facility] [address] [id number] [address] [place] [address], [place] [address] 10 May, 2013 [facility] [address] [id number] [address] [place] [address] 07 May, 2013 [facility] [address] [id number] [address] [place] [id number] 20 Sep, 2012 [facility] [facility] [address] [id number] [address] [place] [address], [place] [address] 19 Sep, 2012 [facility] [address] [id number] [address] [place] [address], [place] [address] 12 Apr, 2012 [facility] [address] [id number] [address] [place] [address], [place] [address] 24 Sep, 2011 [facility] [address] [id number] [address] [place] [address], [place] [address] 21 Sep, 2011 [facility] [address] [id number] [address] [place] [address], [place] [address] 21 Apr, 2011 [facility] [address] [id number] [address] [place] [address], [place] [address] 14 Apr, 2011 [facility] [address] [id number] [address] [place] [address], [place] [address] 10 Apr, 2011 [facility] [address] [id number] [address] [place] [address], [place] [address] 06 Apr, 2011 [facility] [address] [id number] [address] [place] [address], [place] [address] 04 Apr, 2011 [facility] [address] [id number] [address] [place] [address], [place] [address] 31 Mar, 2012 [facility] [address] [id number] [address] [place] [address], [place] [address] 28 Mar, 2012 [facility] [address] [id number] [address] [place] [address], [place] [address] 27 Mar, 2012 [facility] [address] [id number] [address] [place] [address], [place] [address] 10 Mar, 2012 [facility] [address] [id number] [address] [place] [address], [place] [address] 08 Mar, 2012 [facility] [address] [id number] [address] [place] [address], [place] [address] 03 Mar, 2012 [facility] [address] [id number] [address] [place] [address], [place] [address] Feb, [facility] [address] [id number] [address] [place] [address], [place] [address] Feb, [facility] [address] [id number] [address] [place] [address], [place] [address] Feb, [facility] [address] [id number] [address] [place] [address], [place] [address] Jan, [facility] [address] [id number] [address] [place] [address], [place] [address] Jan, [facility] [address] [id number] [address] [place] [address], [place] [address] Jan, [facility] [address] [id number] [address] [place] [address], [place] [address] Jan, [facility] [address] [id number] [address] [place] [address], [place] [address] Jan, [facility] [address] [id number] [address] [place] [address], [place] [address] Jan, [facility] [address] [id number] [address] [place] [address], [place] [address] Jan, [facility] [address] [id number] [address] [place] [address], [place] [address] Jan, [facility] [address] [id number] [address] [place] [address], [place] [address] December, [facility] [address] [id number] [address] [place] [address], [place] [address] December, [facility] [address] [id number] [address] [place] [address], [place] [address] December, [facility] [address] [id number] [address] [place] [address], [place] [address] December, [facility] [address] [id number] [address] [place] [address], [place] [address] December, [facility] [address] [id number] [address] [place] [address], [place] [address] December, [facility] [address] [id number] [address] [place] [address], [place] [address] 13 Nov, 2011 [facility] [address] [id number] [address] [place] [address], [place] [address] 13 Nov, 2011 [facility] [address] [id number] [address] [place] [address], [place] [address] Nov, [facility] [address] [id number] [address] [place] [address], [place] [address] Nov, [facility] [address] [id number] [address] [place] [address], [place] [address] Nov, [facility] [address] [id number] [address] [place] [address], [place] [address] Oct, [facility] [address] [id number] [address] [place] [address], [place] [address] 17 Sep, 2011 [facility] [address] [id number] [address] [place] [address], [place] [address] Aug, [facility] [address] [id number] [address] [place] [address], [place] [address] Aug, [facility] [address] [id number] [address] [place] [address], [place] [address] Aug, [facility] [address] [id number] [address] [place] [address], [place] [address] Aug, [facility] [address] [id number] [address] [place] [address], [place] [address] Aug, [facility] [address] [id number] [address] [place] [address], [place] [address] Jul, [facility] [address] [id number] [address] [place] [address], [place] [address] Jul, [facility] [address] [id number] [address] [place] [address], [place] [address] Jun, [facility] [address] [id number] [address] [place] [address], [place] [address] Jun, [facility] [address] [id number] [address] [place] [address], [place] [address] Jun, [facility] [address] [id number] [address] [place] [address], [place] [address] May, [facility] [address] [id number] [address] [place] [address], [place] [address] May, [facility] [address] [id number] [address] [place] [address], [place] [address] 16 Oct, 2010 [facility] [address] [id number] [address] [place] [address], [place] [address] Oct, [facility] [address] [id number] [address] [place] [address], [place] [address] 29 Jul, 2010 [facility] [address] [id number] [address] [place] [address], [place] [address] 08 Jul, 2010 [facility] [address] [id number] [address] [place] [address], [place] [address] Jul, [facility] [address] [id number] [address] [place] [address], [place] [address] Jul, [facility] [address] [id number] [address] [place] [address], [place] [address] Jul, [facility] [address] [id number] [address] [place] [address], [place] [address] Jun, [facility] [address] [id number] [address] [place] [address], [place] [address] Jun, [facility] [address] [id number] [address] [place] [address], [place] [address] Jun, [facility] [address] [id number] [address] [place] [address], [place] [address] May, [facility] [address] [facility] [id number] [address] [place] [address] 16 Mar, 2010 IMMUNIZATIONS No Known Immunizations SOCIAL HISTORY Never Assessed REASON FOR VISIT PLAN OF CARE VITAL SIGNS MEDICATIONS Unknown [...] Scleral buckle Hospitalization History No Hospitalization history informati on
--- OUTSIDE RECORDS SUMMARY | 2019-11-28 22:40 | XMS REPORT ---
Author Author Caren LYLE Organization [facility] Address [address] [place] [address] Care Team Providers Care Mailroom Messenger Name Role Phone LAURIE LYLE Unavailable PROBLEMS Type Condition ICD9-CM Code [id number] Code Onset Dates Condition S tatus SNOMED Code Problem COPD (chronic obstructive pulmonary disease) J44.9 Active 09975054 Problem Diabetes E11.9 Active 35717202 Problem Diabetic neuropathy E11.40 Active 115541972 Problem Arthritis M19.90 Active 4100526 ALLERGIES No Information ENCOUNTERS Encounter Location Date Diagnosis [facility] [address] [facility] [id number] [address] [place] [address] December, [facility] [address] [id number] [address] [place] [address] Aug, Arthritis M19.90 [facility] [address] [facility] [id number] [address] [place] [address] Jul, [facility] [address] [facility] [id number] [address] [place] [address] Jul, [facility] [address] [facility] [id number] [address] [place] [address] Jul, [facility] [address] [id number] [address] [place] [address] Jul, [facility] [address] [facility] [id number] [address] [place] [address] Jul, Diabetes E11.9 ; Diabetic ne uropathy E11.40 ; Arthritis M19.90 and COPD (chronic obstructive pulmonary disease) J44.9 [facility] [address] [facility] [id number] [address] [place] [address] Jul, [facility] [address] [id number] [address] [place] [address], [place] [address] 23 Jun, 2015 [facility] [address] [id number] [address] [place] [address], [place] [address] 23 Jun, 2015 [facility] [address] [id number] [address] [place] [address], [place] [address] 17 Jun, 2014 [facility] [address] [id number] [address] [place] [address], [place] [address] 10 Jun, 2014 [facility] [address] [id number] [address] [place] [address], [place] [address] 15 May, 2015 [facility] [address] [id number] [address] [place] [address], [place] [address] 13 May, 2015 [facility] [address] [id number] [address] [place] [address], [place] [address] 07 May, 2015 [facility] [address] [id number] [address] [place] [address], [place] [address] 22 Sep, 2014 [facility] [address] [id number] [address] [place] [address], [place] [address] 21 Sep, 2014 [facility] [address] [id number] [address] [place] [address], [place] [address] 21 Sep, 2014 [facility] [address] [id number] [address] [place] [address], [place] [address] 15 Sep, 2014 [facility] [address] [id number] [address] [place] [address], [place] [address] 11 Sep, 2014 [facility] [address] [id number] [address] [place] [address], [place] [address] 09 Sep, 2014 [facility] [address] [id number] [address] [place] [address], [place] [address] 08 Sep, 2014 [facility] [address] [id number] [address] [place] [address], [place] [address] 03 Sep, 2014 [facility] [address] [id number] [address] [place] [address] [address] Apr, [facility] [address] [facility] [id number] [address] [place] [address] Mar, [facility] [address] [facility] [id number] [address] [place] [address] Mar, [facility] [address] [facility] [id number] [address] [place] [address] Mar, [facility] [address] [facility] [id number] [address] [place] [address] Mar, [facility] [address] [facility] [id number] [address] [place] [address] Mar, [facility] [address] [facility] [id number] [address] [place] [address] Mar, Diabetes mellitus 250.00 ; C OPD (chronic obstructive pulmonary disease) 496 ; Anxiety 300.00 and Arthritis 716.90 [facility] [address] [facility] [id number] [address] [place] [address] Feb, [facility] [address] [facility] [id number] [address] [place] [address] Feb, [facility] [address] [facility] [id number] [address] [place] [address] Feb, [facility] [address] [facility] [id number] [address] [place] [address] Feb, [facility] [address] [facility] [id number] [address] [place] [address] Jan, Seborrheic keratosis 702.19 and Nevus 216.9 [facility] [address] [facility] [id number] [address] [place] [address] Jan, [facility] [address] [facility] [id number] [address] [place] [address] Jan, Routine gynecological examin ation V72.31 ; Breast cancer screening V76.10 ; Hot flashes 627.2 ; Atypical nevi 216.9 and Constipation 564.00 [facility] [address] [id number] [address] [place] [address], [place] [address] Jan, [facility] [address] [id number] [address] [place] [address], [place] [address] December, [facility] [address] [id number] [address] [place] [address], [place] [address] December, [facility] [address] [id number] [address] [place] [address], [place] [address] Nov, [facility] [address] [id number] [address] [place] [address], [place] [address] Nov, [facility] [address] [id number] [address] [place] [address], [place] [address] Oct, [facility] [address] [id number] [address] [place] [address], [place] [address] 23 Oct, 2014 [facility] [address] [id number] [address] [place] [address], [place] [address] 18 Oct, 2014 [facility] [address] [id number] [address] [place] [address], [place] [address] 18 Oct, 2014 [facility] [address] [id number] [address] [place] [address], [place] [address] 17 Oct, 2014 [facility] [address] [id number] [address] [place] [address], [place] [address] 17 Oct, 2014 [facility] [address] [id number] [address] [place] [address] 16 Oct, 2014 [facility] [address] [id number] [address] [place] [address], [place] [address] 16 Oct, 2014 [facility] [address] [id number] [address] [place] [address], [place] [address] 11 Oct, 2014 [facility] [address] [id number] [address] [place] [address], [place] [address] 11 Oct, 2014 [facility] [address] [id number] [address] [place] [address], [place] [address] Sep, 2014 [facility] [address] [id number] [address] [place] [address], [place] [address] Sep, 2014 [facility] [address] [id number] [address] [place] [address], [place] [address] 19 Sep, 2014 [facility] [address] [id number] [address] [place] [address], [place] [address] 18 Sep, 2014 [facility] [address] [id number] [address] [place] [address], [place] [address] Sep, 2014 [facility] [address] [id number] [address] [place] [address], [place] [address] Sep, 2014 [facility] [address] [id number] [address] [place] [address], [place] [address] Sep, 2014 [facility] [address] [id number] [address] [place] [address], [place] [address] Aug, [facility] [address] [id number] [address] [place] [address], [place] [address] Aug, [facility] [address] [id number] [address] [place] [address], [place] [address] Aug, [facility] [address] [id number] [address] [place] [address], [place] [address] Aug, [facility] [address] [id number] [address] [place] [address], [place] [address] Aug, [facility] [address] [id number] [address] [place] [address], [place] [address] Aug, [facility] [address] [id number] [address] [place] [address], [place] [address] Jul, [facility] [address] [id number] [address] [place] [address], [place] [address] Jul, [facility] [address] [id number] [address] [place] [address], [place] [address] Jul, [facility] [address] [id number] [address] [place] [address], [place] [address] Jul, [facility] [address] [id number] [address] [place] [address], [place] [address] Jul, [facility] [address] [id number] [address] [place] [address], [place] [address] Jun, [facility] [address] [id number] [address] [place] [address], [place] [address] Jun, [facility] [address] [id number] [address] [place] [address], [place] [address] Jun, [facility] [address] [id number] [address] [place] [address], [place] [address] Jun, [facility] [address] [id number] [address] [place] [address], [place] [address] Jun, [facility] [address] [id number] [address] [place] [address], [place] [address] Jun, [facility] [address] [id number] [address] [place] [address], [place] [address] May, [facility] [address] [id number] [address] [place] [address], [place] [address] May, [facility] [address] [id number] [address] [place] [address], [place] [address] May, [facility] [address] [id number] [address] [place] [address] May, [facility] [address] [id number] [address] [place] [address], [place] [address] May, [facility] [address] [id number] [address] [place] [address], [place] [address] May, [facility] [address] [id number] [address] [place] [address], [place] [address] May, [facility] [address] [id number] [address] [place] [address], [place] [address] May, [facility] [address] [id number] [address] [place] [address], [place] [address] May, [facility] [address] [id number] [address] [place] [address], [place] [address] Apr, [facility] [address] [id number] [address] [place] [address], [place] [address] Apr, [facility] [address] [id number] [address] [place] [address], [place] [address] Apr, [facility] [address] [id number] [address] [place] [address], [place] [address] Apr, [facility] [address] [id number] [address] [place] [address], [place] [address] Mar, [facility] [address] [id number] [address] [place] [address], [place] [address] Mar, [facility] [address] [id number] [address] [place] [address], [place] [address] Mar, [facility] [address] [id number] [address] [place] [address], [place] [address] Mar, [facility] [address] [id number] [address] [place] [address], [place] [address] Mar, [facility] [address] [id number] [address] [place] [address], [place] [address] Mar, [facility] [address] [id number] [address] [place] [address], [place] [address] Feb, [facility] [address] [id number] [address] [place] [address], [place] [address] Feb, [facility] [address] [id number] [address] [place] [address], [place] [address] Feb, [facility] [address] [id number] [address] [place] [address], [place] [address] Feb, [facility] [address] [id number] [facility] [place] [address] Feb, 2013 [facility] [address] [id number] [facility] [place] [address] Feb, [facility] [address] [id number] [address] [place] [address], [place] [address] Feb, 2013 [facility] [address] [id number] [address] [place] [address], [place] [address] Feb, 2013 [facility] [address] [id number] [address] [place] [address], [place] [address] Feb, 2013 [facility] [address] [id number] [address] [place] [address], [place] [address] Feb, [facility] [address] [id number] [address] [place] [address], [place] [address] Feb, [facility] [address] [id number] [address] [place] [address], [place] [address] Feb, [facility] [address] [id number] [address] [place] [address], [place] [address] Jan, [facility] [address] [id number] [address] [place] [address], [place] [address] Jan, [facility] [address] [id number] [address] [place] [address], [place] [address] Jan, [facility] [address] [id number] [address] [place] [address], [place] [address] Jan, [facility] [address] [id number] [address] [place] [address], [place] [address] Jan, [facility] [address] [id number] [address] [place] [address], [place] [address] Jan, [facility] [address] [id number] [address] [place] [address], [place] [address] Jan, [facility] [address] [id number] [address] [place] [address], [place] [address] Jan, [facility] [address] [id number] [address] [place] [address], [place] [address] Jan, [facility] [address] [id number] [address] [place] [address], [place] [address] Jan, [facility] [address] [id number] [address] [place] [address], [place] [address] Jan, [facility] [address] [id number] [address] [place] [address], [place] [address] Jan, [facility] [address] [id number] [address] [place] [address], [place] [address] Jan, [facility] [address] [id number] [address] [place] [address], [place] [address] Jan, [facility] [address] [id number] [address] [place] [address], [place] [address] Jan, [facility] [address] [id number] [address] [place] [address], [place] [address] Jan, [facility] [address] [id number] [address] [place] [address], [place] [address] Jan, [facility] [address] [id number] [address] [place] [address], [place] [address] December, [facility] [address] [id number] [address] [place] [address], [place] [address] December, [facility] [address] [id number] [address] [place] [address], [place] [address] December, [facility] [address] [id number] [address] [place] [address], [place] [address] December, [facility] [address] [id number] [address] [place] [address], [place] [address] December, [facility] [address] [id number] [address] [place] [address], [place] [address] December, [facility] [address] [id number] [address] [place] [address], [place] [address] Nov, [facility] [address] [id number] [address] [place] [address], [place] [address] Nov, [facility] [address] [id number] [address] [place] [address], [place] [address] Nov, [facility] [address] [id number] [address] [place] [address], [place] [address] Nov, [facility] [address] [id number] [address] [place] [address], [place] [address] Nov, [facility] [address] [id number] [address] [place] [address], [place] [address] Nov, [facility] [address] [id number] [address] [place] [address], [place] [address] Nov, [facility] [address] [id number] [address] [place] [address], [place] [address] Nov, [facility] [address] [id number] [address] [place] [address], [place] [address] Nov, [facility] [address] [id number] [address] [place] [address], [place] [address] Nov, [facility] [address] [id number] [address] [place] [address], [place] [address] Nov, [facility] [address] [id number] [address] [place] [address], [place] [address] Nov, [facility] [address] [id number] [address] [place] [address], [place] [address] Nov, [facility] [address] [id number] [address] [place] [address], [place] [address] Nov, [facility] [address] [id number] [address] [place] [address], [place] [address] Nov, [facility] [address] [id number] [address] [place] [address], [place] [address] Nov, [facility] [address] [id number] [address] [place] [address], [place] [address] Oct, [facility] [address] [id number] [address] [place] [address], [place] [address] Oct, [facility] [address] [id number] [address] [place] [address], [place] [address] Oct, [facility] [address] [id number] [address] [place] [address], [place] [address] Oct, [facility] [address] [id number] [address] [place] [address], [place] [address] Oct, [facility] [address] [id number] [address] [place] [address], [place] [address] Oct, [facility] [address] [id number] [address] [place] [address], [place] [address] Oct, [facility] [address] [id number] [address] [place] [address], [place] [address] Oct, [facility] [address] [id number] [address] [place] [address], [place] [address] Sep, [facility] [address] [id number] [address] [place] [address], [place] [address] Sep, [facility] [address] [id number] [address] [place] [address], [place] [address] Sep, [facility] [address] [id number] [address] [place] [address], [place] [address] Sep, [facility] [address] [id number] [address] [place] [address], [place] [address] Sep, [facility] [address] [id number] [address] [place] [address], [place] [address] Sep, [facility] [address] [id number] [address] [place] [address], [place] [address] Aug, [facility] [address] [id number] [address] [place] [address], [place] [address] Aug, [facility] [address] [id number] [address] [place] [address], [place] [address] Aug, [facility] [address] [id number] [address] [place] [address], [place] [address] Aug, [facility] [address] [id number] [address] [place] [address], [place] [address] Aug, [facility] [address] [id number] [address] [place] [address], [place] [address] Aug, [facility] [address] [id number] [address] [place] [address], [place] [address] Aug, [facility] [address] [id number] [address] [place] [address], [place] [address] Aug, [facility] [address] [id number] [address] [place] [address], [place] [address] Jul, [facility] [address] [id number] [address] [place] [address], [place] [address] Jul, [facility] [address] [id number] [address] [place] [address], [place] [address] Jul, [facility] [address] [id number] [address] [place] [address], [place] [address] Jul, [facility] [address] [id number] [address] [place] [address], [place] [address] Jul, [facility] [address] [id number] [address] [place] [address], [place] [address] Jul, [facility] [address] [id number] [address] [place] [address], [place] [address] Jul, [facility] [address] [id number] [address] [place] [address], [place] [address] Jul, [facility] [address] [id number] [address] [place] [address], [place] [address] Jul, [facility] [address] [id number] [address] [place] [address], [place] [address] 14 Jun, 2013 [facility] [address] [id number] [address] [place] [address], [place] [address] 14 Jun, 2013 [facility] [address] [id number] [address] [place] [address], [place] [address] Jun, [facility] [address] [id number] [address] [place] [address], [place] [address] Jun, [facility] [address] [id number] [address] [place] [address], [place] [address] Jun, [facility] [address] [id number] [address] [place] [address], [place] [address] Jun, [facility] [address] [id number] [address] [place] [address], [place] [address] 31 May, 2013 [facility] [address] [id number] [address] [place] [address], [place] [address] 31 May, 2013 [facility] [address] [id number] [address] [place] [address], [place] [address] 17 May, 2013 [facility] [address] [id number] [address] [place] [address], [place] [address] 17 May, 2013 [facility] [address] [id number] [address] [place] [address], [place] [address] 14 May, 2013 [facility] [address] [id number] [address] [place] [address], [place] [address] 14 May, 2013 [facility] [address] [id number] [address] [place] [address], [place] [address] 10 May, 2013 [facility] [address] [id number] [address] [place] [address], [place] [address] 10 May, 2013 [facility] [address] [id number] [address] [place] [address] 07 May, 2013 [facility] [address] [id number] [address] [place] [address] 20 Sep, 2012 [facility] [address] [id number] [address] [place] [address], [place] [address] 19 Sep, 2012 [facility] [address] [id number] [address] [place] [address], [place] [address] 12 Apr, 2012 [facility] [address] [id number] [address] [place] [address], [place] [address] 24 Sep, 2011 [facility] [address] [id number] [address] [place] [address], [place] [address] 21 Sep, 2011 [facility] [address] [id number] [address] [place] [address], [place] [address] 21 Apr, 2011 [facility] [address] [id number] [address] [place] [address], [place] [address] 14 Apr, 2011 [facility] [address] [id number] [address] [place] [address], [place] [address] 10 Apr, 2011 [facility] [address] [id number] [address] [place] [address], [place] [address] 06 Apr, 2011 [facility] [address] [address] [id number] [address] [place] [address], [place] [address] 04 Apr, 2011 [facility] [address] [id number] [address] [place] [address], [place] [address] 31 Mar, 2012 [facility] [address] [id number] [address] [place] [address], [place] [address] 28 Mar, 2012 [facility] [address] [id number] [address] [place] [address], [place] [address] 27 Mar, 2012 [facility] [address] [id number] [address] [place] [address], [place] [address] 10 Mar, 2012 [facility] [address] [id number] [address] [place] [address], [place] [address] 08 Mar, 2012 [facility] [address] [id number] [address] [place] [address], [place] [address] 03 Mar, 2012 [facility] [address] [id number] [address] [place] [address], [place] [address] Feb, [facility] [address] [id number] [address] [place] [address], [place] [address] Feb, [facility] [address] [id number] [address] [place] [address], [place] [address] Feb, [facility] [address] [id number] [address] [place] [address], [place] [address] Jan, [facility] [address] [id number] [address] [place] [address], [place] [address] Jan, [facility] [address] [id number] [address] [place] [address], [place] [address] Jan, [facility] [address] [id number] [address] [place] [address], [place] [address] Jan, [facility] [address] [id number] [address] [place] [address], [place] [address] Jan, [facility] [address] [id number] [address] [place] [address], [place] [address] Jan, [facility] [address] [id number] [address] [place] [address], [place] [address] Jan, [facility] [address] [id number] [address] [place] [address], [place] [address] Jan, [facility] [address] [id number] [address] [place] [address], [place] [address] December, [facility] [address] [id number] [address] [place] [address], [place] [address] December, [facility] [address] [id number] [address] [place] [address], [place] [address] December, [facility] [address] [id number] [address] [place] [address], [place] [address] December, [facility] [address] [id number] [address] [place] [address], [place] [address] December, [facility] [address] [id number] [address] [place] [address], [place] [address] December, [facility] [address] [id number] [address] [place] [address], [place] [address] 13 Nov, 2011 [facility] [address] [id number] [address] [place] [address], [place] [address] 13 Nov, 2011 [facility] [address] [id number] [address] [place] [address], [place] [address] Nov, [facility] [address] [id number] [address] [place] [address], [place] [address] Nov, [facility] [address] [id number] [address] [place] [address], [place] [address] Nov, [facility] [address] [id number] [address] [place] [address], [place] [address] Oct, [facility] [address] [id number] [address] [place] [address], [place] [address] 17 Sep, 2011 [facility] [address] [id number] [address] [place] [address], [place] [address] Aug, [facility] [address] [id number] [address] [place] [address], [place] [address] Aug, [facility] [address] [id number] [address] [place] [address], [place] [address] Aug, [facility] [address] [id number] [address] [place] [address], [place] [address] Aug, [facility] [address] [id number] [address] [place] [address], [place] [address] Aug, [facility] [address] [id number] [address] [place] [address], [place] [address] Jul, [facility] [address] [id number] [address] [place] [address], [place] [address] Jul, [facility] [address] [id number] [address] [place] [address], [place] [address] Jun, [facility] [address] [id number] [address] [place] [address], [place] [address] Jun, [facility] [address] [id number] [address] [place] [address], [place] [address] Jun, [facility] [address] [id number] [address] [place] [address], [place] [address] May, [facility] [address] [id number] [address] [place] [address], [place] [address] May, [facility] [address] [id number] [address] [place] [address], [place] [address] 16 Oct, 2010 [facility] [address] [id number] [address] [place] [address], [place] [address] Oct, [facility] [address] [id number] [address] [place] [address], [place] [address] 29 Jul, 2010 [facility] [address] [id number] [address] [place] [address], [place] [address] 08 Jul, 2010 [facility] [address] [id number] [address] [place] [address], [place] [address] Jul, [facility] [address] [id number] [address] [place] [address], [place] [address] Jul, [facility] [address] [id number] [address] [place] [address], [place] [address] Jul, [facility] [address] [id number] [address] [place] [address], [place] [address] Jun, [facility] [address] [id number] [address] [place] [address], [place] [address] Jun, [facility] [address] [id number] [address] [place] [address], [place] [address] Jun, [facility] [address] [id number] [address] [place] [address], [place] [address] May, [facility] [address] [facility] [id number] [address] [place] [address] 16 Mar, 2010 IMMUNIZATIONS No Known Immunizations [...]
--- OUTSIDE RECORDS SUMMARY | 2019-11-28 22:40 | XMS REPORT | Encounter Summary ---
Author Author [facility] Organization [facility] Address Unknown Phone Unavailable Care Team Providers Care Computer Network Specialist Name Role Phone Ebony Sharp MD PCP Reason for Visit * Reason Comments Chest pain PT HERE VIA EMS C/O CHEST/E PIGASTRIC PAIN RADIATING AROUND TO BACK STARTED APPROX 45 MIN AGO. PT STATES SHE WAS LY ING IN BED EATING TRAILMIX WHEN SHE HAD A "FUNNY FEELING" IN HER TONGUE AND THROAT. PT STATES SHE TOOK 4 BENADRYL FOR THOSE SYMPTOMS. PT WAS BEAR PHORETIC UPON EMS ARRIVAL, GIVEN ASA AND NITRO EN ROUTE. PT C/O SOME SOA, DE NIES OTHER COMPLAINT. Encounter Details Care Team Description Date Type Department Chava Kelly MD [address] [facility] [place] [address] Maggie Yap DO [address] [place] [address] [phone] Pleuritic chest pain (Primary Dx); Allergic reaction, initial encounter 09/05/2015 Emergency [facility] [address] [place] [address] Social History Date Tobacco Use Types Packs/Day Years Used Former Smoker Drinks/Week oz/Week Comments Alcohol Use No Sex Assigned at Date Recorded Female Industry Job Start Date Occupation Not on file Not on file Not on file Travel End Travel History Travel Start No recent travel history available. documented as of this encounter Last Filed Vital Signs Reading Time Taken Comments Vital Sign 137/82 09/05/2015 8:16 PM THERAPIST PHYS Blood Pressure 80 09/05/2015 8:16 PM THERAPIST PHYS Pulse 36.4 C (97.5 F) 09/05/2015 3:52 PM THERAPIST PHYS Temperature 17 09/05/2015 8:16 PM THERAPIST PHYS Respiratory Rate 94% 09/05/2015 8:16 PM THERAPIST PHYS Oxygen Saturation - - Inhaled Oxygen Concentration 92.5 kg (204 lb) 09/05/2015 3:52 PM THERAPIST PHYS Weight 152.4 cm (5') 09/05/2015 3:52 PM THERAPIST PHYS Height 39.84 09/05/2015 3:52 PM THERAPIST PHYS Body Mass Index documented in this encounter Discharge Instructions * Instructions* Maggie Yap, DO - 09/05/2015 Allergic Reaction, Other [Local] You are having an allergic reaction. This is due to exposure to something you diggs ve become sensitive to. This may be a household product, medicine, chemical, soa p, cream, cosmetics or jewelry. A sting from an insect (that you were not aware of) can also cause this reaction. Sometimes it is difficult to know exactly what caused this reaction. There may be redness, itching, and swelling. The rash andrew l fade over the next few days. Home Care: If itching is a problem, avoid anything that heats up your skin (hot showers/ baths, direct sunlight) since heat will make itching worse. An ice pack (ice cubes in a plastic bag, wrapped in a towel) will reduce loca l areas of redness and itching. Lanacaine cream or Solarcaine spray (or other pr oduct containing "benzocaine") will reduce the itching. Oral Benadryl (diphenhydramine) is an antihistamine available at drug and darryl [employer] stores. Unless a prescription antihistamine was given, Benadryl may be used to reduce itching if large areas of the skin are involved. Use lower doses duri ng the daytime and higher doses at bedtime since the drug may make you sleepy. [ NOTE: Do not use Benadryl if you have glaucoma or if you are a man with trouble urinating due to an enlarged prostate.] Claritin (loratadine) is an antihistamin e that causes less drowsiness and is a good alternative for daytime use. Follow Up with your doctor or this facility in the next two days if your symptoms do not c ontinue to improve. Get Prompt Medical Attention if any of the following occur: Spreading areas of itching, redness or swelling New or worse swelling in the face, eyelids, lips, mouth, throat or tongue Trouble swallowing or breathing Dizziness, weakness or fainting Signs of infection: Spreading redness Increased pain or swelling Fever of 100.4F (38C) or higher, or as directed by your healthcare provid er Colored fluid draining from the wound [employer] [address] [place] [address] 569 7. All rights reserved. This information is not intended as a substitute for pro fessional medical care. Always follow your healthcare professional's instruction s. Chest Pain, Uncertain Cause Chest pain can happen for a number of reasons. Sometimes the cause can not be de termined. If yourcondition does not seem serious, and your pain does not appea r to be coming from your heart, your doctor may recommend watching it closely. S ometimes the signs of a serious problem take more time to appear. Therefore, lyle for the warning signs listed below. Home [...] Swelling, pain or redness in one leg [id number] [employer] [address] [place] [address] 9777 7. All rights reserved. This information is not intended as a substitute for pro fessional medical care. Always follow your healthcare professional's instruction s. documented in this encounter Medications at Time of Discharge Start Date End Date Medication Sig Dispensed Refills 09/05/2015 09/15/2015 predniSONE (DELTASONE) 20 Take three 15 tablet 0 MG tablet tablets (60 mg total) by mouth daily. 09/05/2015 09/24/2015 famotidine (PEPCID) 20 MG Take one 60 tablet 0 tablet tablet (20 mg total) by mouth 2 (two) times a day. 09/05/2015 08/07/2016 HYDROcodone-acetaminophen Take one 20 tablet 0 (NORCO) 5-325 mg per tablet by tablet mouth every 6 (six) hours as needed for pain. Do not drive while taking this medication. documented as of this encounter ED Notes * Wayne Rutherford - 09/05/2015 7:27 PM THERAPIST PHYS Patient back in room from V/Q scan, sitting up in bed eating, patient has no c/o or needs at this time will continue to monitor. APIST PHYS * Wayne Rutherford - 09/05/2015 6:29 PM THERAPIST PHYS Diet tray ordered for patient, okay per Dr. Yap. Patient back in bed given wa rm blanket, has no other needs at this time. Will continue to monitor. APIST PHYS Wayne Griggs - 09/05/2015 6:16 PM THERAPIST PHYS Patient ambulated up to BR without any difficulty. APIST PHYS Wayne Griggs - 09/05/2015 5:11 PM THERAPIST PHYS PICC nurse was unsuccessful obtaining IV access in patient's AC, will notify Dr. Yap. APIST PHYS Wayne Griggs - 09/05/2015 4:50 PM THERAPIST PHYS PICC nurse called and asked to help start IV in AC space for CTA exam. APIST PHYS Maggie Blanco DO - 09/05/2015 4:27 PM THERAPIST PHYS 09/05/2015 [facility] History Chief Complaint Patient presents with Chest pain PT HERE VIA EMS C/O CHEST/EPIGASTRIC PAIN RADIATING AROUND TO BACK STARTED FAMILIA RAMON 45 MIN AGO. PT STATES SHE WAS LYING IN BED EATING TRAILMIX WHEN SHE HAD A "F UNNY FEELING" IN HER TONGUE AND THROAT. PT STATES SHE TOOK 4 BENADRYL FOR THOSE SYMPTOMS. PT WAS DIAPHORETIC UPON EMS ARRIVAL, GIVEN ASA AND NITRO EN ROUTE. PT C/O SOME SOA, DENIES OTHER COMPLAINT. HPI the patient is a 65-year-old female coming from home via EMS for acute onset of facial throat and tongue swelling after eating some papaya in Amlin mix toda y. Symptoms started around 2:30 this afternoon while she was sitting watching TV and eating this at home. She took 4 Benadryl's when it happened but then later got some diffuse chest pain that is pleuritic in nature and reminds her of the p leurisy she's been diagnosed with before. She's had this chest pain, on periodic ally over the last 2 weeks, sometimes lasting just a couple hours like it had to day and is still ongoing, sometimes lasting for days. She really doesn't take an ything for it. She admits to at least subjective productive cough and congestion , fevers and chills, upper belly pain underneath her ribs. She basically points to the entirety of the chest and back area were her ribs are as the source of he r chest discomfort. She also feels short of breath. She feels like she could use a DuoNeb treatment as well. She feels that her voice is hoarse and that there is still some itchy scratchy feeling in the back of her throat but the symptoms of the swelling of her face and throat and tongue have remarkably improved. Past Medical History Diagnosis Date COPD (chronic obstructive pulmonary disease) Diabetes mellitus Hypertension Arthritis Hyperlipidemia Past Surgical History Procedure Laterality Date section, classic Cholecystectomy Hysterectomy No family history on file. family medical history is noncontributory to case History Substance Use Topics Smoking status: Former Smoker Smokeless tobacco: Not on file Alcohol Use: No Allergy information reviewed Review of Systems complete review of systems performed and negative for any rece nt dizziness or syncope, falls or other trauma, nausea or vomiting, lower belly pain, bowel or bladder complaints. Physical Exam BP 136/87 mmHg | Pulse 65 | Temp(Src) 36.4 C (97.5 F) (Oral) | Resp 15 | Ht 1.524 m (5') | Wt 92.534 kg (204 lb) | BMI 39.84 kg/m2 | SpO2 94% Physical Exam Nursing documentation and vital signs reviewed General: No acute distress, alert HEENT: head is atraumatic and normocephalic, no scleral icterus, PERRL bilateral ly, pharynx is normal, no signs of dehydration, no facial swelling or tongue or throat swelling appreciated, no stridor Neck: normal appearance Respiratory: no respiratory distress, decreased lung sounds diffusely but howeve r no crackles or wheezing appreciated Cardiac: heart sound normal, no murmurs or rubs or gallups, normal rate and rhyt hm, radial pulses are 2+ bilaterally Abdomen: non tender, no guarding or rebound, no distention, normal bowel sounds, no organomegaly Back: Normal appearance, no vertibral or CVA tenderness Skin: normal color, no rash or lesions, warm, dry Extremities: non tender, no sign of injury, full ROM without pain, no pedal jacky a or calf tenderness Neuro/ Psych: oriented X4, at baseline,no weakness, mood and affect are normal. Labs Reviewed COMPREHENSIVE METABOLIC PANEL - Abnormal; Notable for the following: Glucose 136 (*) All other components within normal limits CBC AND DIFF (MANUAL DIFF IF NECESSARY) - Abnormal; Notable for the following: # Lymphocytes 3.44 (*) # Monocytes 0.97 (*) # Eosinophils 0.57 (*) All other components within normal limits D DIMER - Abnormal; Notable for the following: D Dimer 1.26 (*) All other components within normal limits PROTHROMBIN TIME/INR TROPONIN XR Chest single view frontal Final Result IMPRESSION: No acute cardiopulmonary process. READING SITE: [facility] Lung Scan VQ (Results Pending) ED Course Procedures MDM the patient was evaluated and workup remarkable for a d-dimer that was eleva lexis, the patient did not have good IV access for CT angios of the chest therefor e VQ was done and according to VRC showed low probability for pulmonary embolism . The rest of her workup was very unremarkable and she was stable and comfortabl e on monitor while she was here. She was able to eat a meal, had no recurrence o f symptoms of facial or mouth or throat swelling, received a little bit of fluid as well as famotidine and Solu-Medrol here and pain medication. She feels that hydrocodone will work best for her pain at home and she's had this before. I off ered her 6 hour troponin or a second troponin here but she really just wants to go home and I feel that that is reasonable at this time. Her symptoms do seem mo re likely pleuritic chest pain and not angina at this time. She was understandin g and agreeable to this plan of care. 7:48 PM EKG: interpreted by ED Attending Physician, Sinus rhythm with a rate of 66, moderate artifact in V5 but no acute ST segment elevation or depression, oth erwise normal EKG.. ED Clinical Impression SNOMED CT(R) 1. Pleuritic chest pain PLEURITIC PAIN 2. Allergic reaction, initial encounter ALLERGIC REACTION Maggie Yap DO 09/05/151948 APIST PHYS * Mary Jo Rodas RN - 09/05/2015 3:56 PM THERAPIST PHYS PT HERE VIA EMS C/O CHEST/EPIGASTRIC PAIN RADIATING AROUND TO BACK STARTED APPRO X 45 MIN AGO. PT STATES SHE WAS LYING IN BED EATING TRAILMIX WHEN SHE HAD A "FUN [place] FEELING" IN HER TONGUE AND THROAT. PT STATES SHE TOOK 4 BENADRYL FOR THOSE SY MPTOMS. PT WAS DIAPHORETIC UPON EMS ARRIVAL, GIVEN ASA AND NITRO EN ROUTE. PT C/ O SOME SOA, DENIES OTHER COMPLAINT. APIST PHYS * Calvin Garcia - 09/05/2015 3:48 PM THERAPIST PHYS Bed: [facility] Expected date: Expected time: Means of arrival: Comments: 65F chest pain APIST PHYS documented in this encounter Plan of Treatment Care Team Description Date [place] [address] [place] [id number] [phone] 02/29/2020 Office Visit Urology documented as of this encounter Procedures Comments Procedure Name Priority Date/Time Associated Diag nosis LAB SUMMARY 09/07/2015 5:31 AM THERAPIST PHYS NM LUNG SCAN VQ STAT 09/05/2015 7:09 PM THERAPIST PHYS TROPONIN STAT 09/05/2015 4:07 PM THERAPIST PHYS PROTHROMBIN TIME/INR STAT 09/05/2015 4:07 PM THERAPIST PHYS D DIMER STAT 09/05/2015 4:07 PM THERAPIST PHYS COMPREHENSIVE METABOLIC STAT 09/05/2015 PANEL 4:07 PM THERAPIST PHYS CBC AND DIFF (MANUAL DIFF STAT 09/05/2015 IF NECESSARY) 4:07 PM THERAPIST PHYS XR CHEST SINGLE VIEW STAT 09/05/2015 FRONTAL 3:59 PM THERAPIST PHYS PULSE OXIMETRY, STAT 09/05/2015 CONTINUOUS 3:51 PM THERAPIST PHYS ECG STAT 09/05/2015 3:51 PM THERAPIST PHYS documented in this encounter Results * LAB SUMMARY (09/07/2015 5:31 AM THERAPIST PHYS) Narrative Performed At This result has an attachment that is n ot available. Ordered by an unspecified provider. * NM Lung Scan VQ (09/05/2015 7:09 PM THERAPIST PHYS) Specimen Impressions Performed At Impression: Low probability of pulmonary embolism. M JANE ATTESTATION STATEMENT: The Staff Radiologist has personally re viewed the images and dictated, reviewed, or edited the final report. READING SITE: [facility]. Narrative Performed At Patient: ISIAH BENÍTEZ Sex#: F # [id number] Jose#: Location: [place] [address] Procedure Requested: [id number] NM LUNG SCAN VQ Reason for Exam: pos d dimer, concern for pe, can't get good iv for angio Exam Ordered: 09/05/2015 17 16 Exam Date/Time: 09/05/2015 190 9 Check-in Date/Time: 09/05/2015 1826 NM LUNG SCAN VQ Date: 2015-09-05 19:10:25 History: Chest pain Comparison study: None. Technique: The patient was initially ve ntilated with 33 mCi of Tc-99m tagged DTPA. Static images were obtaine d. The patient was next injected with 5.2 mCi of Tc-99 m tagged MAA. Sim ilar static images were obtained. Comparison is made with same day fronta l radiograph. Findings: There is normal distribution of the isotope throughout the lung parenchyma on both ventilation and perfusion studies. There are no mismatched segmental or subsegmental de fects identified. A small amount of isotope was swallowed on the ventila tion study. Procedure Note Interface, Rad Results In - 09/06/2015 7:24 AM THERAPIST PHYS Patient: ISIAH BENÍTEZ Sex#: F # [id number] Jose#: Location: [place] [address] Procedure Requested: [id number] NM LUNG SCAN VQ Reason for Exam: pos d dimer, concern for pe, can't get good iv for angio Exam Ordered: 09/05/2015 171 Exam Date/Time: 09/05/20151908 Check-in Date/Time: 09/05/20151825 NM LUNG SCAN VQ Date: 2015-09-05 19:10:25 History: Chest pain Comparison study: None. Technique: The patient was initially ventilated with 33 mCi of Tc-99m tagged DTPA. Static images were obtained. The patient was next injected with 5.2 mCi of Tc-99 m tagged MAA. Similar static images were obtained. Comparison is made with same day frontal radiograph. Findings: There is normal distribution of the isotope throughout the lung parenchyma on both ventilation and perfusion studies. There are no mismatched segmental or subsegmental defects identified. A small amount of isotope was swallowed on the ventilation study. Impression: Low probability of pulmonary embolism. ATTESTATION STATEMENT: The Staff Radiologist has personally reviewed the images and dictated, reviewed, or edited the final report. READING SITE: [facility]. Performing Organization Address City/[facility], [facility] one Number [email or web address] * D Dimer (09/05/2015 4:07 PM THERAPIST PHYS) D Dimer 1.26 (H)Comment: Cutoff value 0.00 - 0.40 ug/m L [facility] for exclusion of venous [facility] thromboembolism is <0.40 ug/mL [facility]. Specimen Blood Performing Organization Address City/[facility] Ph one Number [facility] [address] [facility] [place], [place] [id number] [facility] [address] [facility] [place] [address], [facility] * Troponin (09/05/2015 4:07 PM THERAPIST PHYS) Pathologist [facility] [place] Troponin <0.01 0.00 - 0.03 ng/mL [facility] Comment: [facility] Troponin Value [facility] Interpretation 0.00 - 0.03 Healthy 0.04 - 0.12 Increased Cardiac Risk >0.12 Myocardial Infarction Troponin may not become elevated until 6 to 8 hours after onset of symptoms. Specimen Blood Performing Organization Address City/State/Zipcode Ph one Number [facility] [address] [place] [address] [facility] [address] [facility] [place] [address], [facility] * Prothrombin Time/INR - ONLY if patient is on Warfarin (09/05/2015 4:07 PM THERAPIST PHYS) Pathologist [facility] [place] Protime 13.2 11.4 - 15.0 sec [facility] INR 1.0 0.8 - 1.2 [facility] Specimen Blood Performing Organization Address City/State/Zipcode Ph one Number [facility] [address] [facility] [place] [address] [facility] [address] [facility] [place] [address], [facility] * CBC and Diff (manual diff if necessary) (09/05/2015 4:07 PM THERAPIST PHYS) Pathologist [facility] [place] WBC 10.96 4.00 - 11.00 TH/uL [facility] RBC 4.51 4.00 - 5.00 MIL/uL [facility] Hemoglobin 14.8 12.0 - 15.0 g/dL [facility] Hematocrit 43 36 - 45 % [facility] MCV 96 80 - 99 fL [facility] MCH 33 27 - 34 pg [facility] MCHC 34 32 - 36 % [facility] RDW 13.8 9.0 - 14.5 % [facility] Platelet Count 185 140 - 400 TH/uL [facility] MPV 9.9 9.4 - 12.3 fL [facility] % Neutrophils 54 45 - 78 % [facility] %Lymphocytes 31 15 - 47 % [facility] %Monocytes 9 0 - 12 % [facility] %Eosinophils 5 0 - 7 % [facility] %Basophils 1 0 - 2 % [facility] # Granulocytes 5.93 1.7 - 6.8 TH/uL [facility] # Lymphocytes 3.44 (H) 1.0 - 3.3 TH/uL [facility] # Monocytes 0.97 (H) 0.2 - 0.9 TH/uL [facility] # Eosinophils 0.57 (H) 0.0 - 0.4 TH/uL [facility] # Basophils 0.05 0.0 - 0.1 TH/uL [facility] Specimen Blood Performing Organization Address City/State/Zipcode Ph one Number [facility] [address] [facility] [place] [address] [facility] [address] [facility] [place] [address], [facility] * Comprehensive Metabolic Panel (09/05/2015 4:07 PM THERAPIST PHYS) [facility] Sodium 141 133 - 147 MEQ/L [facility] Potassium 3.7 3.5 - 5.3 MEQ/L [facility] Chloride 105 96 - 112 MEQ/L [facility] Carbon Dioxide 25 20 - 32 MEQ/L [facility] Anion Gap 11 5 - 17 [facility] Calcium 9.6 8.4 - 10.5 mg/dL [facility] Glucose 136 (H) 70 - 100 mg/dL [facility] Protein Total 7.7 6.0 - 8.2 g/dL [facility] Serum [facility] Albumin 4.4 3.5 - 5.0 g/dL [facility] Alkaline 87 42 - 140 IU/L [facility] Phosphatase [facility] Alanine 24 13 - 69 IU/L [facility] Aminotransferas [facility] e [facility] Aspartate 37 15 - 46 IU/L [facility] Aminotransferas [facility] e [facility] Bilirubin Total 0.4 0.2 - 1.3 mg/dL [facility] Blood Urea 22 7 - 26 mg/dL [facility] Nitrogen [facility] Creatinine 0.8 0.4 - 1.1 mg/dL [facility] eGFR Female AA 87 60 - 200 [facility] Comment: [facility] Chronic Kidney Disease less [facility] than 60 mL/min/1.73 sq.m Kidney failure less than 15 mL/min/1.73 sq.m eGFR Female 72 60 - 200 [facility] Non-AA Comment: [facility] Chronic Kidney Disease less [facility] than 60 mL/min/1.73 sq.m Kidney failure less than 15 mL/min/1.73 sq.m Specimen Blood Performing Organization Address City/State/Zipcode Ph one Number [facility] [address] [place] [address] [facility] [address] [place] [address], [place] [phone] [facility] * XR Chest single view frontal (09/05/2015 3:59 PM THERAPIST PHYS) Specimen Impressions Performed At IMPRESSION: No acute cardiopulmonary process. BRANDON HUTCHINSON READING SITE: [facility] Narrative Performed At Patient: ISIAH BENÍTEZ Sex#: F # [id number] Jose#: Location: [place] [address] Procedure Requested: [id number] XR CHEST SINGLE VIEW FRONTAL Reason for Exam: Chest Pain Exam Ordered: 09/05/2015 15 52 Exam Date/Time: 09/05/2015 155 9 Check-in Date/Time: 09/05/2015 1554 XR CHEST SINGLE VIEW FRONTAL INDICATION: Chest Pain COMPARISON STUDY: None. FINDINGS: Lungs: Lingular linear scarring or subs egmental atelectasis. No consolidation. Pleura: No pleural effusion or pneumoth orax. Heart and Mediastinum: The cardiomedias tinal silhouette is normal. Atherosclerotic aorta. Bones: The skeletal structures are unre markable. Procedure Note Interface, Rad Results In - 09/05/2015 5:25 PM THERAPIST PHYS Patient: ISIAH BENÍTEZ Sex#: F # [id number] Jose#: Location: [place] [address] Procedure Requested: [id number] XR CHEST SINGLE VIEW FRONTAL Reason for Exam: Chest Pain Exam Ordered: 09/05/2015 1552 Exam Date/Time: 09/05/2015 1559 Check-in Date/Time: 09/05/2015 1554 XR CHEST SINGLE VIEW FRONTAL INDICATION: Chest Pain COMPARISON STUDY: None. FINDINGS: Lungs: Lingular linear scarring or subsegmental atelectasis. No consolidation. Pleura: No pleural effusion or pneumothorax. Heart and Mediastinum: The cardiomediastinal silhouette is normal. Atherosclerotic aorta. Bones: The skeletal structures are unremarkable. IMPRESSION: No acute cardiopulmonary process. 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 : 1950 Requested By: CHAVA KELLY Order Number: [id number] Reading MD: Delores Cabrera Measurements Intervals Piercy Rate: 66 P: 31 LA: 136 QRS: 21 QRSD: 98 T: 58 QT: 424 QTc: 445 Interpretive Statements SINUS RHYTHM No previous ECG available for compariso n Electronically Signed On 09-06-2015 14:0 9:54 THERAPIST PHYS by Delores Cabrera Performing Organization Address City/[facility], 1928–1983 one Number ANDREW documented in this encounter Visit Diagnoses Diagnosis Pleuritic chest pain Painful respiration Allergic reaction, initial encounter documented in this encounter Administered Medications Action Date Dose Rate Site Medication Order MAR Action 09/05/2015 4:34 PM THERAPIST PHYS 20 mg famotidine (PEPCID) injection 20 mg Given 20 mg, Intravenous, Once, Ju 09/05/15 a t 1629, For 1 dose 09/05/2015 8:05 PM THERAPIST PHYS 1 tablet HYDROcodone-acetaminophen (NORCO) 5-325 Given mg per tablet 1 tablet 1 tablet, Oral, Once, Ju 09/05/15 at 2004, For 1 dose, Do not exceed 4 GM/DA Y of acetaminophen. If 65 or older do no t exceed 3 GM/DAY. If chronic alcoholic d o not exceed 2 GM/DAY., 09/05/2015 4:39 PM THERAPIST PHYS 3 mL ipratropium-albuterol (DUO-NEB) 0.5-3 Given mg/3 mL nebulizer solution 3 mL 3 mL, Inhalation, As needed, wheezing, shortness of air, bronchospasm, Startin g Ju 09/05/15 at 1627, Via SVN, 09/05/2015 5:39 PM THERAPIST PHYS 30 mg ketorolac (TORADOL) injection 30 mg Given 30 mg, Intravenous, Once, Ju 09/05/15 a t 1736, For 1 dose 09/05/2015 4:37 PM THERAPIST PHYS 125 mg methylPREDNISolone sodium succinate Given (Solu-MEDROL) injection 125 mg 125 mg, Intravenous, Once, Ju 09/05/15 at 1629, For 1 dose 09/05/2015 4:31 PM THERAPIST PHYS 4 mg morphine 4 mg Given 4 mg, Intravenous, Once, Ju 09/05/15 at 1629, For 1 dose 09/05/2015 5:38 PM THERAPIST PHYS 500 mL 1000 mL/hr sodium chloride 0.9% (NS) IV Bolus New Bag 500 mL, Intravenous, Administer over 30 Minutes, Once, Ju 09/05/15 at 1651, For 1 dose documented in this encounter
--- OUTSIDE RECORDS SUMMARY | 2019-11-28 22:41 | XMS REPORT ---
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 Wood Name Role Phone LAURIE LYLE Unavailable PROBLEMS Type Condition ICD9-CM Code [id number] Code Onset Dates Condition S tatus SNOMED Code Problem COPD (chronic obstructive pulmonary disease) J44.9 Active 61330867 Problem Diabetes E11.9 Active 85644830 Problem Diabetic neuropathy E11.40 Active 066645485 Problem Arthritis M19.90 Active 4509921 ALLERGIES No Information ENCOUNTERS Encounter Location Date Diagnosis [place] [address] [address] December, [facility] [address] [address] Aug, Arthritis M19.90 [facility] [address] [address] Jul, [facility] [address] [address] Jul, [facility] [address] [address] Jul, [facility] [address] [address] Jul, [facility] [address] [address] Jul, Diabetes E11.9 ; Diabetic neuropathy E11 .40 ; Arthritis M19.90 and COPD (chronic obstructive pulmonary disease) J44.9 [facility] [address] [address] Jul, [facility] [address] [address] Jun, 2014 [facility] [address] [facility] [id number] [place] [address] 23 Jun, 2014 [facility] [address] [id number] [place] [address] 17 Jun, 2014 [facility] [address] [id number] [place] [address] 10 Jun, 2014 [facility] [address] [id number] [place] [address] 15 May, 2015 [facility] [address] [facility] [id number] [place] [address] 13 May, 2015 [facility] [address] [id number] [place] [address] 07 May, 2014 [facility] [address] [id number] [place] [address] 22 Sep, 2014 [facility] [address] [id number] [place] [address] 21 Sep, 2014 [facility] [address] [id number] [place] [address] 21 Sep, 2014 [facility] [address] [id number] [place] [address] 15 Sep, 2014 [facility] [address] [id number] [place] [address] 11 Sep, 2014 [facility] [address] [id number] [place] [address] 09 Sep, 2014 [facility] [address] [id number] [place] [address] 08 Sep, 2014 [facility] [address] [id number] [place] [address] 03 Sep, 2014 [facility] [address] [id number] [place] [address] 02 Sep, 2014 [facility] [address] [id number] [place] [address] 31 Mar, 2014 [facility] [address] [place] [id number] [place] [address] Mar, [facility] [address] [address] Mar, [facility] [address] [address] Mar, [facility] [address] [address] Mar, [facility] [address] [address] Mar, Diabetes mellitus 250.00 ; COPD (chronic obstructive pulmonary disease) 496 ; Anxiety 300.00 and Arthritis 716.90 [facility] [address] [address] Feb, [facility] [address] [address] Feb, [facility] [address] [address] Feb, [facility] [address] [address] Feb, [facility] [address] [address] Jan, Seborrheic keratosis 702.19 and Nevus 21 6.9 [facility] [address] [address] Jan, [facility] [address] [address] Jan, Routine gynecological examination V72.31 ; Breast cancer screening V76.10 ; Hot flashes 627.2 ; Atypical nevi 216.9 and Constipation 564.00 [facility] [address] [address] Jan, [facility] [address] [address] December, [facility] [address] [address] 05 Dec, 2014 [facility] [address] [facility] [id number] [facility] [place] [address] 14 Nov, 2014 [facility] [address] [facility] [id number] [facility] [place] [address] 13 Nov, 2014 [facility] [address] [id number] [place] [address] 23 Oct, 2014 [facility] [address] [facility] [id number] [place] [address] 23 Oct, 2014 [facility] [address] [facility] [id number] [place] [address] 18 Oct, 2014 [facility] [address] [id number] [place] [address] 18 Oct, 2014 [facility] [address] [id number] [place] [address] 17 Oct, 2014 [facility] [address] [id number] [place] [address] 17 Oct, 2014 [facility] [address] [id number] [place] [address] 16 Oct, 2014 [facility] [address] [id number] [place] [address] 16 Oct, 2014 [facility] [address] [id number] [place] [address] 11 Oct, 2014 [facility] [address] [id number] [place] [address] Oct, [facility] [address] [facility] [id number] [place] [address] Sep, [facility] [address] [id number] [place] [address] Sep, [facility] [address] [id number] [place] [address] 19 Sep, 2014 [facility] [address] [id number] [place] [address] 18 Sep, 2014 [facility] [address] [id number] [place] [address] 18 Sep, 2014 [facility] [address] [id number] [place] [address] Sep, [facility] [address] [id number] [place] [address] Sep, [facility] [address] [id number] [place] [address] Aug, [facility] [address] [id number] [place] [address] Aug, [facility] [address] [id number] [place] [address] Aug, [facility] [address] [id number] [place] [address] Aug, [facility] [address] [id number] [place] [address] Aug, [facility] [address] [id number] [place] [address] Aug, [facility] [address] [id number] [place] [address] Jul, [facility] [address] [id number] [place] [address] Jul, [facility] [address] [id number] [place] [address] Jul, [facility] [address] [id number] [place] [address] Jul, [facility] [address] [id number] [place] [address] 08 Jul, 2014 [facility] [address] [id number] [place] [address] Jun, [facility] [address] [id number] [place] [address] Jun, [facility] [address] [id number] [place] [address] Jun, [facility] [address] [id number] [place] [address] Jun, [facility] [address] [id number] [place] [address] Jun, [facility] [address] [id number] [place] [address] Jun, [facility] [address] [id number] [place] [address] May, [facility] [address] [id number] [place] [address] May, [facility] [address] [id number] [place] [address] May, [facility] [address] [id number] [place] [address] May, [facility] [address] [id number] [place] [address] May, [facility] [address] [id number] [place] [address] May, [facility] [address] [id number] [place] [address] May, [facility] [address] [id number] [place] [address] May, [facility] [address] [id number] [place] [address] May, [facility] [address] [id number] [place] [address] Apr, 2013 [facility] [address] [id number] [place] [address] Apr, 2013 [facility] [address] [id number] [place] [address] Apr, 2013 [facility] [address] [id number] [place] [address] Apr, 2013 [facility] [address] [id number] [facility] [place] [address] Mar, [facility] [address] [id number] [facility] [place] [address] Mar, [facility] [address] [facility] [id number] [facility] [place] [address] Mar, [facility] [address] [facility] [id number] [facility] [place] [address] Mar, [facility] [address] [facility] [id number] [facility] [place] [address] Mar, [facility] [address] [facility] [id number] [facility] [place] [address] Mar, [facility] [address] [facility] [id number] [place] [address] Feb, [facility] [address] [id number] [place] [address] Feb, [facility] [address] [id number] [place] [address] Feb, [facility] [address] [facility] [id number] [facility] [place] [address] Feb, [facility] [address] [facility] [id number] [place] [address] Feb, [facility] [address] [id number] [place] [address] Feb, [facility] [address] [facility] [id number] [place] [address] Feb, [facility] [address] [facility] [id number] [place] [address] Feb, [facility] [address] [id number] [place] [address] Feb, [facility] [address] [facility] [id number] [place] [address] Feb, [facility] [address] [id number] [place] [address] Feb, [facility] [address] [id number] [place] [address] Feb, 2013 [facility] [address] [id number] [place] [address] Jan, [facility] [address] [id number] [place] [address] Jan, [facility] [address] [id number] [place] [address] Jan, [facility] [address] [facility] [id number] [place] [address] Jan, [facility] [address] [id number] [place] [address] Jan, [facility] [address] [id number] [place] [address] Jan, [facility] [address] [id number] [place] [address] Jan, [facility] [address] [id number] [place] [address] Jan, [facility] [address] [id number] [place] [address] Jan, [facility] [address] [id number] [place] [address] Jan, [facility] [address] [id number] [place] [address] Jan, [facility] [address] [id number] [place] [address] Jan, [facility] [address] [id number] [place] [address] Jan, [facility] [address] [id number] [place] [address] Jan, [facility] [address] [id number] [place] [address] Jan, [facility] [address] [id number] [place] [address] Jan, [facility] [address] [id number] [facility] [place] [address] Jan, [facility] [address] [id number] [facility] [place] [address] December, [facility] [address] [id number] [facility] [place] [address] December, [facility] [address] [id number] [facility] [place] [address] December, [facility] [address] [id number] [facility] [place] [address] December, [facility] [address] [id number] [place] [address] December, [facility] [address] [id number] [place] [address] December, [facility] [address] [id number] [place] [address] Nov, [facility] [address] [id number] [facility] [place] [address] Nov, [facility] [address] [id number] [place] [address] Nov, [facility] [address] [id number] [place] [address] Nov, [facility] [address] [id number] [place] [address] Nov, [facility] [address] [id number] [place] [address] Nov, [facility] [address] [id number] [place] [address] Nov, [facility] [address] [id number] [place] [address] Nov, [facility] [address] [id number] [place] [address] Nov, [facility] [address] [id number] [facility] [place] [address] 07 Nov, 2013 [facility] [address] [facility] [id number] [place] [address] Nov, [facility] [address] [facility] [id number] [place] [address] Nov, [facility] [address] [id number] [place] [address] Nov, [facility] [address] [facility] [id number] [place] [address] Nov, [facility] [address] [facility] [id number] [place] [address] Nov, [facility] [address] [id number] [place] [address] Nov, [facility] [address] [id number] [place] [address] Oct, [facility] [address] [id number] [place] [address] Oct, [facility] [address] [facility] [id number] [place] [address] Oct, [facility] [address] [id number] [place] [address] Oct, [facility] [address] [id number] [place] [address] Oct, [facility] [address] [id number] [place] [address] Oct, [facility] [address] [facility] [id number] [place] [address] Oct, [facility] [address] [id number] [place] [address] Oct, [facility] [address] [id number] [place] [address] Sep, [facility] [address] [id number] [place] [address] Sep, [facility] [address] [id number] [place] [address] Sep, [facility] [address] [id number] [place] [address] Sep, [facility] [address] [id number] [place] [address] Sep, [facility] [address] [id number] [place] [address] Sep, [facility] [address] [id number] [place] [address] Aug, [facility] [address] [id number] [place] [address] Aug, [facility] [address] [id number] [place] [address] Aug, [facility] [address] [id number] [place] [address] Aug, [facility] [address] [id number] [place] [address] Aug, [facility] [address] [id number] [place] [address] Aug, [facility] [address] [id number] [place] [address] Aug, [facility] [address] [id number] [place] [address] Aug, [facility] [address] [id number] [place] [address] Jul, [facility] [address] [id number] [place] [address] Jul, [facility] [address] [id number] [place] [address] Jul, [facility] [address] [id number] [place] [address] Jul, [facility] [address] [id number] [place] [address] 30 Jul, 2012 [facility] [address] [id number] [place] [address] 30 Jul, 2013 [facility] [address] [id number] [place] [address] Jul, [facility] [address] [id number] [place] [address] Jul, [facility] [address] [id number] [place] [address] Jul, [facility] [address] [id number] [place] [address] 14 Jun, 2013 [facility] [address] [id number] [place] [address] 14 Jun, 2013 [facility] [address] [place] [id number] [place] [address] Jun, [facility] [address] [id number] [place] [address] Jun, [facility] [address] [id number] [place] [address] Jun, [facility] [address] [id number] [place] [address] 07 Jun, 2013 [facility] [address] [id number] [place] [address] 31 May, 2013 [facility] [address] [id number] [place] [address] 31 May, 2013 [facility] [address] [id number] [place] [address] 17 May, 2013 [facility] [address] [id number] [place] [address] 17 May, 2013 [facility] [address] [id number] [place] [address] 14 May, 2013 [facility] [address] [id number] [place] [address] 14 May, 2013 [facility] [address] [id number] [place] [address] 10 May, 2012 [facility] [address] [id number] [place] [address] 10 May, 2012 [facility] [address] [id number] [place] [address] 07 May, 2012 [facility] [address] [id number] [place] [address] 20 Sep, 2012 [facility] [address] [id number] [place] [address] 19 Sep, 2012 [facility] [address] [id number] [place] [address] 12 Apr, 2012 [facility] [address] [id number] [place] [address] 24 Sep, 2011 [facility] [address] [id number] [place] [address] 21 Sep, 2011 [facility] [address] [id number] [place] [address] 21 Sep, 2011 [facility] [address] [id number] [place] [address] 14 Sep, 2011 [facility] [address] [id number] [place] [address] 10 Sep, 2011 [facility] [address] [id number] [place] [address] 06 Sep, 2011 [facility] [address] [id number] [place] [address] 04 Sep, 2011 [facility] [address] [id number] [place] [address] 31 Mar, 2011 [facility] [address] [id number] [place] [address] 28 Mar, 2011 [facility] [address] [id number] [place] [address] 27 Mar, 2011 [facility] [address] [id number] [place] [address] Mar, [facility] [address] [facility] [id number] [place] [address] Mar, [facility] [address] [facility] [id number] [facility] [place] [address] Mar, [facility] [address] [id number] [place] [address] Feb, [facility] [address] [id number] [place] [address] Feb, [facility] [address] [facility] [id number] [facility] [place] [address] Feb, [facility] [address] [id number] [place] [address] Jan, [facility] [address] [id number] [place] [address] Jan, [facility] [address] [id number] [place] [address] Jan, [facility] [address] [id number] [place] [address] Jan, [facility] [address] [id number] [place] [address] Jan, [facility] [address] [id number] [place] [address] Jan, [facility] [address] [id number] [place] [address] Jan, [facility] [address] [id number] [place] [address] Jan, [facility] [address] [id number] [place] [address] December, [facility] [address] [id number] [place] [address] December, [facility] [address] [id number] [place] [address] December, [facility] [address] [id number] [place] [address] December, [facility] [address] [id number] [place] [address] December, [facility] [address] [id number] [place] [address] December, [facility] [address] [id number] [place] [address] 13 Nov, 2011 [facility] [address] [id number] [place] [address] 13 Nov, 2011 [facility] [address] [id number] [place] [address] Nov, [facility] [address] [id number] [place] [address] 13 Nov, 2011 [facility] [address] [id number] [place] [address] Nov, [facility] [address] [id number] [place] [address] Oct, [facility] [address] [id number] [place] [address] Sep, [facility] [address] [id number] [place] [address] Aug, [facility] [address] [id number] [place] [address] Aug, [facility] [address] [id number] [place] [address] Aug, [facility] [address] [id number] [place] [address] Aug, [facility] [address] [id number] [place] [address] Aug, [facility] [address] [id number] [place] [address] Jul, [facility] [address] [id number] [place] [address] Jul, [facility] [address] [id number] [place] [address] 28 Jun, 2011 [facility] [address] [id number] [place] [address] 04 Jun, 2011 [facility] [address] [id number] [place] [address] Jun, [facility] [address] [id number] [place] [address] May, [facility] [address] [id number] [place] [address] May, [facility] [address] [id number] [place] [address] 16 Oct, 2010 [facility] [address] [id number] [place] [address] Oct, [facility] [address] [id number] [place] [address] 29 Jul, 2010 [facility] [address] [id number] [place] [address] 08 Jul, 2010 [facility] [address] [id number] [place] [address] Jul, [facility] [address] [id number] [place] [address] Jul, [facility] [address] [id number] [place] [address] Jul, [facility] [address] [id number] [place] [address] Jun, [facility] [address] [id number] [place] [address] Jun, [facility] [address] [id number] [place] [address] Jun, [facility] [address] [id number] [place] [id number] May, [facility] [address] [id number] [place] [address] 16 Mar, 2010 IMMUNIZATIONS No Known Immunizations [...]
--- OUTSIDE RECORDS SUMMARY | 2019-11-28 22:41 | XMS REPORT ---
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 Name Role Phone LAURIE LYLE Unavailable PROBLEMS Type Condition ICD9-CM Code AVC28-EF Code Onset Dates Condition S tatus SNOMED Code Problem COPD (chronic obstructive pulmonary disease) J44.9 Active 20819589 Problem Diabetes E11.9 Active 59207356 Problem Diabetic neuropathy E11.40 Active 744081113 Problem Arthritis M19.90 Active 5703033 ALLERGIES No Information ENCOUNTERS Encounter Location Date Diagnosis [place] [address] [address] December, [facility] [address] [address] Aug, Arthritis M19.90 [facility] [address] [address] Jul, [facility] [address] [address] Jul, [facility] [address] [address] Jul, [facility] [address] [address] Jul, [facility] [address] [address] Jul, Diabetes E11.9 ; Diabetic neuropathy E11 .40 ; Arthritis M19.90 and COPD (chronic obstructive pulmonary disease) J44.9 [facility] [address] [address] Jul, [facility] [address] [address] Jun, 2014 [facility] [address] [facility] [id number] [place] [address] 23 Jun, 2014 [facility] [address] [id number] [place] [address] 17 Jun, 2014 [facility] [address] [id number] [place] [address] 10 Jun, 2014 [facility] [address] [id number] [place] [address] 15 May, 2015 [facility] [address] [facility] [id number] [place] [address] 13 May, 2015 [facility] [address] [id number] [place] [address] 07 May, 2014 [facility] [address] [id number] [place] [address] 22 Sep, 2014 [facility] [address] [id number] [place] [address] 21 Sep, 2014 [facility] [address] [id number] [place] [address] 21 Sep, 2014 [facility] [address] [id number] [place] [address] 15 Sep, 2014 [facility] [address] [id number] [place] [address] 11 Sep, 2014 [facility] [address] [id number] [place] [address] 09 Sep, 2014 [facility] [address] [id number] [place] [address] 08 Sep, 2014 [facility] [address] [id number] [place] [address] 03 Sep, 2014 [facility] [address] [id number] [place] [address] 02 Sep, 2014 [facility] [address] [id number] [place] [address] 31 Mar, 2014 [facility] [address] [place] [id number] [place] [address] Mar, [facility] [address] [address] Mar, [facility] [address] [address] Mar, [facility] [address] [address] Mar, [facility] [address] [address] Mar, Diabetes mellitus 250.00 ; COPD (chronic obstructive pulmonary disease) 496 ; Anxiety 300.00 and Arthritis 716.90 [facility] [address] [address] Feb, [facility] [address] [address] Feb, [facility] [address] [address] Feb, [facility] [address] [address] Feb, [facility] [address] [address] Jan, Seborrheic keratosis 702.19 and Nevus 21 6.9 [facility] [address] [address] Jan, [facility] [address] [address] Jan, Routine gynecological examination V72.31 ; Breast cancer screening V76.10 ; Hot flashes 627.2 ; Atypical nevi 216.9 and Constipation 564.00 [facility] [address] [address] Jan, [facility] [address] [address] December, [facility] [address] [address] 05 Dec, 2014 [facility] [address] [facility] [id number] [facility] [place] [address] 14 Nov, 2014 [facility] [address] [facility] [id number] [facility] [place] [address] 13 Nov, 2014 [facility] [address] [id number] [place] [address] 23 Oct, 2014 [facility] [address] [facility] [id number] [place] [id number] 23 Oct, 2014 [facility] [address] [facility] [id number] [place] [address] 18 Oct, 2014 [facility] [address] [id number] [place] [address] 18 Oct, 2014 [facility] [address] [id number] [place] [address] 17 Oct, 2014 [facility] [address] [id number] [place] [address] 17 Oct, 2014 [facility] [address] [id number] [place] [address] 16 Oct, 2014 [facility] [address] [id number] [place] [address] 16 Oct, 2014 [facility] [address] [id number] [place] [address] 11 Oct, 2014 [facility] [address] [id number] [place] [address] Oct, [facility] [address] [facility] [id number] [place] [address] Sep, [facility] [address] [id number] [place] [address] Sep, [facility] [address] [id number] [place] [address] 19 Sep, 2014 [facility] [address] [id number] [place] [address] 18 Sep, 2014 [facility] [address] [id number] [place] [address] 18 Sep, 2014 [facility] [address] [id number] [place] [address] Sep, [facility] [address] [id number] [place] [address] Sep, [facility] [address] [id number] [place] [address] Aug, [facility] [address] [id number] [place] [address] Aug, [facility] [address] [id number] [place] [address] Aug, [facility] [address] [id number] [place] [address] Aug, [facility] [address] [id number] [place] [address] Aug, [facility] [address] [id number] [place] [address] Aug, [facility] [address] [id number] [place] [address] Jul, [facility] [address] [id number] [place] [address] Jul, [facility] [address] [id number] [place] [address] Jul, [facility] [address] [id number] [place] [address] Jul, [facility] [address] [id number] [place] [address] 08 Jul, 2014 [facility] [address] [id number] [place] [address] Jun, [facility] [address] [id number] [place] [address] Jun, [facility] [address] [id number] [place] [address] Jun, [facility] [address] [id number] [place] [address] Jun, [facility] [address] [id number] [place] [address] Jun, [facility] [address] [id number] [place] [address] Jun, [facility] [address] [id number] [place] [address] May, [facility] [address] [id number] [place] [address] May, [facility] [address] [id number] [place] [address] May, [facility] [address] [id number] [place] [address] May, [facility] [address] [id number] [place] [address] May, [facility] [address] [id number] [place] [address] May, [facility] [address] [id number] [place] [address] May, [facility] [address] [id number] [place] [address] May, [facility] [address] [id number] [place] [address] May, [facility] [address] [id number] [place] [address] Apr, 2013 [facility] [address] [id number] [place] [address] Apr, 2013 [facility] [address] [id number] [place] [address] Apr, 2013 [facility] [address] [id number] [place] [address] Apr, 2013 [facility] [address] [id number] [facility] [address] Mar, [facility] [address] [id number] [facility] [place] [address] Mar, [facility] [address] [facility] [id number] [facility] [place] [address] Mar, [facility] [address] [facility] [id number] [facility] [place] [address] Mar, [facility] [address] [facility] [id number] [facility] [place] [address] Mar, [facility] [address] [facility] [id number] [facility] [place] [address] Mar, [facility] [address] [facility] [id number] [place] [address] Feb, [facility] [address] [id number] [place] [address] Feb, [facility] [address] [id number] [place] [address] Feb, [facility] [address] [facility] [id number] [facility] [place] [address] Feb, [facility] [address] [facility] [id number] [place] [address] Feb, [facility] [address] [id number] [place] [address] Feb, [facility] [address] [facility] [id number] [place] [address] Feb, [facility] [address] [facility] [id number] [place] [address] Feb, [facility] [address] [id number] [place] [address] Feb, [facility] [address] [facility] [id number] [place] [address] Feb, [facility] [address] [id number] [place] [address] Feb, [facility] [address] [id number] [place] [address] Feb, 2013 [facility] [address] [id number] [place] [address] Jan, [facility] [address] [id number] [place] [address] Jan, [facility] [address] [id number] [place] [address] Jan, [facility] [address] [facility] [id number] [place] [address] Jan, [facility] [address] [id number] [place] [address] Jan, [facility] [address] [id number] [place] [address] Jan, [facility] [address] [id number] [place] [address] Jan, [facility] [address] [id number] [place] [address] Jan, [facility] [address] [id number] [place] [address] Jan, [facility] [address] [id number] [place] [address] Jan, [facility] [address] [id number] [place] [address] Jan, [facility] [address] [id number] [place] [address] Jan, [facility] [address] [id number] [place] [address] Jan, [facility] [address] [id number] [place] [address] Jan, [facility] [address] [id number] [place] [address] Jan, [facility] [address] [id number] [place] [address] Jan, [facility] [address] [id number] [facility] [place] [address] Jan, [facility] [address] [id number] [facility] [place] [address] December, [facility] [address] [id number] [facility] [place] [address] December, [facility] [address] [id number] [facility] [place] [address] December, [facility] [address] [id number] [facility] [place] [address] December, [facility] [address] [id number] [place] [address] December, [facility] [address] [id number] [place] [address] December, [facility] [address] [id number] [place] [address] Nov, [facility] [address] [id number] [facility] [place] [address] Nov, [facility] [address] [id number] [place] [address] Nov, [facility] [address] [id number] [place] [address] Nov, [facility] [address] [id number] [place] [address] Nov, [facility] [address] [id number] [place] [address] Nov, [facility] [address] [id number] [place] [address] Nov, [facility] [address] [id number] [place] [address] Nov, [facility] [address] [id number] [place] [address] Nov, [facility] [address] [id number] [facility] [place] [address] 07 Nov, 2013 [facility] [address] [facility] [id number] [place] [address] Nov, [facility] [address] [facility] [id number] [place] [address] Nov, [facility] [address] [id number] [place] [address] Nov, [facility] [address] [facility] [id number] [place] [address] Nov, [facility] [address] [facility] [id number] [place] [address] Nov, [facility] [address] [id number] [place] [address] Nov, [facility] [address] [id number] [place] [address] Oct, [facility] [address] [id number] [place] [address] Oct, [facility] [address] [facility] [id number] [place] [address] Oct, [facility] [address] [id number] [place] [address] Oct, [facility] [address] [id number] [place] [address] Oct, [facility] [address] [id number] [place] [address] Oct, [facility] [address] [facility] [id number] [place] [address] Oct, [facility] [address] [id number] [place] [address] Oct, [facility] [address] [id number] [place] [address] Sep, [facility] [address] [id number] [place] [address] Sep, [facility] [address] [id number] [place] [address] Sep, [facility] [address] [id number] [place] [address] Sep, [facility] [address] [id number] [place] [address] Sep, [facility] [address] [id number] [place] [address] Sep, [facility] [address] [id number] [place] [address] Aug, [facility] [address] [id number] [place] [address] Aug, [facility] [address] [id number] [place] [address] Aug, [facility] [address] [id number] [place] [address] Aug, [facility] [address] [id number] [place] [address] Aug, [facility] [address] [id number] [place] [address] Aug, [facility] [address] [id number] [place] [address] Aug, [facility] [address] [id number] [place] [address] Aug, [facility] [address] [id number] [place] [address] Jul, [facility] [address] [id number] [place] [address] Jul, [facility] [address] [id number] [place] [address] Jul, [facility] [address] [id number] [place] [address] Jul, [facility] [address] [id number] [place] [address] 30 Jul, 2012 [facility] [address] [id number] [place] [address] 30 Jul, 2013 [facility] [address] [id number] [place] [address] Jul, [facility] [address] [id number] [place] [address] Jul, [facility] [address] [id number] [place] [address] Jul, [facility] [address] [id number] [place] [address] 14 Jun, 2013 [facility] [address] [id number] [place] [address] 14 Jun, 2013 [facility] [id number] [place] [address] Jun, [facility] [id number] [place] [address] Jun, [facility] [address] [id number] [place] [address] Jun, [facility] [address] [id number] [place] [address] 07 Jun, 2013 [facility] [address] [id number] [place] [address] 31 May, 2013 [facility] [address] [id number] [place] [address] 31 May, 2013 [facility] [address] [id number] [place] [address] 17 May, 2013 [facility] [id number] [place] [address] 17 May, 2013 [facility] [address] [id number] [place] [address] 14 May, 2013 [facility] [address] [id number] [place] [address] 14 May, 2013 [facility] [address] [id number] [place] [address] 10 May, 2012 [facility] [address] [id number] [place] [address] 10 May, 2012 [facility] [address] [id number] [place] [address] 07 May, 2012 [facility] [address] [id number] [place] [address] 20 Sep, 2012 [facility] [address] [id number] [place] [address] 19 Sep, 2012 [facility] [address] [id number] [place] [address] 12 Apr, 2012 [facility] [address] [id number] [place] [address] 24 Sep, 2011 [facility] [address] [id number] [place] [address] 21 Sep, 2011 [facility] [address] [id number] [place] [address] 21 Sep, 2011 [facility] [address] [id number] [place] [address] 14 Sep, 2011 [facility] [address] [id number] [place] [address] 10 Sep, 2011 [facility] [address] [id number] [place] [address] 06 Sep, 2011 [facility] [place] [facility] [address] [id number] [place] [id number] 04 Sep, 2011 [facility] [place] [facility] [address] [id number] [place] [id number] 31 Mar, 2011 [facility] [place] [facility] [address] [id number] [place] [id number] 28 Mar, 2011 [facility] [place] [facility] [address] [id number] [place] [id number] 27 Mar, 2011 [facility] [place] [facility] [address] [id number] [place] [id number] Mar, [facility] [place] [facility] [address] [facility] [id number] [place] [address] Mar, [facility] [place] [facility] [address] [facility] [id number] [facility] [place] [id number] Mar, [facility] [place] [facility] [address] [id number] [place] [id number] Feb, [facility] [place] [facility] [address] [id number] [place] [id number] Feb, [facility] [place] [facility] [address] [facility] [id number] [facility] [place] [address] Feb, [facility] [place] [facility] [address] [id number] [place] [id number] Jan, [facility] [place] [facility] [address] [id number] [place] [id number] Jan, [facility] [place] [facility] [address] [id number] [place] [id number] Jan, [facility] [place] [facility] [address] [id number] [place] [id number] Jan, [facility] [place] [facility] [address] [id number] [place] [id number] Jan, [facility] [place] [facility] [address] [id number] [place] [id number] Jan, [facility] [place] [facility] [address] [id number] [place] [id number] Jan, [facility] [place] [facility] [address] [id number] [place] [id number] Jan, [facility] [place] [facility] [address] [id number] [place] [id number] December, [facility] [place] [facility] [address] [id number] [place] [id number] December, [facility] [place] [facility] [address] [id number] [place] [id number] December, [facility] [place] [facility] [address] [id number] [place] [id number] December, [facility] [place] [facility] [address] [id number] [place] [id number] December, [facility] [place] [facility] [address] [id number] [place] [id number] December, [facility] [place] [facility] [address] [id number] [place] [id number] 13 Nov, 2011 [facility] [place] [facility] [address] [id number] [place] [id number] 13 Nov, 2011 [facility] [place] [facility] [address] [id number] [place] [id number] Nov, [facility] [place] [facility] [address] [id number] [place] [id number] 13 Nov, 2011 [facility] [place] [facility] [address] [id number] [place] [id number] Nov, [facility] [place] [facility] [address] [id number] [place] [id number] Oct, [facility] [place] [facility] [address] [id number] [place] [id number] Sep, [facility] [place] [facility] [address] [id number] [place] [id number] Aug, [facility] [place] [facility] [address] [id number] [place] [id number] Aug, [facility] [place] [facility] [address] [id number] [place] [id number] Aug, [facility] [place] [facility] [address] [id number] [place] [id number] Aug, [facility] [place] [facility] [address] [id number] [place] [address] Aug, [facility] [place] [facility] [address] [id number] [place] [id number] Jul, [facility] [place] [facility] [address] [id number] [place] [id number] Jul, [facility] [place] [facility] [address] [id number] [place] [id number] 28 Jun, 2011 [facility] [place] [facility] [address] [id number] [place] [id number] 04 Jun, 2011 [facility] [place] [facility] [address] [id number] [place] [id number] Jun, [facility] [place] [facility] [address] [id number] [place] [id number] May, [facility] [place] [facility] [address] [id number] [place] [id number] May, [facility] [place] [facility] [address] [id number] [place] [id number] 16 Oct, 2010 [facility] [place] [facility] [address] [id number] [place] [id number] Oct, [facility] [place] [facility] [address] [id number] [place] [id number] 29 Jul, 2010 [facility] [address] [id number] [place] [id number] 08 Jul, 2010 [facility] [address] [id number] [place] [id number] Jul, [facility] [address] [id number] [place] [id number] Jul, [facility] [address] [id number] [place] [id number] Jul, [facility] [address] [id number] [place] [id number] Jun, [facility] [address] [id number] [place] [id number] Jun, [facility] [address] [id number] [place] [id number] Jun, [facility] [address] [id number] [place] [id number] May, [facility] [address] [id number] [place] [address] 16 Mar, 2010 IMMUNIZATIONS No Known Immunizations [...]
--- OUTSIDE RECORDS SUMMARY | 2019-11-28 22:41 | XMS REPORT ---
Author Author Caren LYLE Organization [facility] Address [address] [place] [address] Care Team Providers Care Director Telemetry Name Role Phone LAURIE LYLE Unavailable PROBLEMS Type Condition ICD9-CM Code [id number] Code Onset Dates Condition S tatus SNOMED Code Problem COPD (chronic obstructive pulmonary disease) J44.9 Active 04795577 Problem Diabetes E11.9 Active 73009865 Problem Diabetic neuropathy E11.40 Active 344786569 Problem Arthritis M19.90 Active 6351672 ALLERGIES No Information ENCOUNTERS Encounter Location Date Diagnosis [facility] [address] [facility] [id number] [address] [place] [id number] December, [facility] [address] [id number] [address] [place] [id number] Aug, Arthritis M19.90 [facility] [address] [facility] [id number] [address] [place] [id number] Jul, [facility] [address] [facility] [id number] [address] [place] [id number] Jul, [facility] [address] [facility] [id number] [address] [place] [id number] Jul, [facility] [address] [id number] [address] [place] [id number] Jul, [facility] [address] [facility] [id number] [address] [place] [id number] Jul, Diabetes E11.9 ; Diabetic ne uropathy E11.40 ; Arthritis M19.90 and COPD (chronic obstructive pulmonary disease) J44.9 [facility] [address] [facility] [id number] [address] [place] [id number] Jul, [facility] [address] [id number] [address] [place] [address], [place] [address] 23 Jun, 2015 [facility] [address] [id number] [address] [place] [address], [place] [address] 23 Jun, 2015 [facility] [address] [id number] [address] [place] [address], [place] [address] 17 Jun, 2014 [facility] [address] [id number] [address] [place] [address], [place] [address] 10 Jun, 2014 [facility] [address] [id number] [address] [place] [address], [place] [address] 15 May, 2015 [facility] [address] [id number] [address] [place] [address], [place] [address] 13 May, 2015 [facility] [address] [id number] [address] [place] [address], [place] [address] 07 May, 2015 [facility] [address] [id number] [address] [place] [address], [place] [address] 22 Sep, 2014 [facility] [address] [id number] [address] [place] [address], [place] [address] 21 Sep, 2014 [facility] [address] [id number] [address] [place] [address], [place] [address] 21 Sep, 2014 [facility] [address] [id number] [address] [place] [address], [place] [address] 15 Sep, 2014 [facility] [address] [id number] [address] [place] [address], [place] [address] 11 Sep, 2014 [facility] [address] [id number] [address] [place] [address], [place] [address] 09 Sep, 2014 [facility] [address] [id number] [address] [place] [address], [place] [address] 08 Sep, 2014 [facility] [address] [id number] [address] [place] [address], [place] [address] 03 Sep, 2014 [facility] [address] [id number] [address] [place] [address] [address] Apr, [facility] [address] [facility] [id number] [address] [place] [id number] Mar, [facility] [address] [facility] [id number] [address] [place] [id number] Mar, [facility] [address] [facility] [id number] [address] [place] [id number] Mar, [facility] [address] [facility] [id number] [address] [place] [id number] Mar, [facility] [address] [facility] [id number] [address] [place] [id number] Mar, [facility] [address] [facility] [id number] [address] [place] [id number] Mar, Diabetes mellitus 250.00 ; C OPD (chronic obstructive pulmonary disease) 496 ; Anxiety 300.00 and Arthritis 716.90 [facility] [address] [facility] [id number] [address] [place] [id number] Feb, [facility] [address] [facility] [id number] [address] [place] [id number] Feb, [facility] [address] [facility] [id number] [address] [place] [id number] Feb, [facility] [address] [facility] [id number] [address] [place] [id number] Feb, [facility] [address] [facility] [id number] [address] [place] [id number] Jan, Seborrheic keratosis 702.19 and Nevus 216.9 [facility] [address] [facility] [id number] [address] [place] [id number] Jan, [facility] [address] [facility] [id number] [address] [place] [id number] Jan, Routine gynecological examin ation V72.31 ; Breast cancer screening V76.10 ; Hot flashes 627.2 ; Atypical nevi 216.9 and Constipation 564.00 [facility] [address] [id number] [address] [place] [address], [place] [address] Jan, [facility] [address] [id number] [address] [place] [address], [place] [address] December, [facility] [address] [id number] [address] [place] [address], [place] [address] December, [facility] [address] [id number] [address] [place] [address], [place] [address] Nov, [facility] [address] [id number] [address] [place] [address], [place] [address] Nov, [facility] [address] [id number] [address] [place] [address], [place] [address] Oct, [facility] [address] [id number] [address] [place] [address], [place] [address] 23 Oct, 2014 [facility] [address] [id number] [address] [place] [address], [place] [address] 18 Oct, 2014 [facility] [address] [id number] [address] [place] [address], [place] [address] 18 Oct, 2014 [facility] [address] [id number] [address] [place] [address], [place] [address] 17 Oct, 2014 [facility] [address] [id number] [address] [place] [address], [place] [address] 17 Oct, 2014 [facility] [address] [id number] [address] [place] [id number] 16 Oct, 2014 [facility] [address] [id number] [address] [place] [address], [place] [address] 16 Oct, 2014 [facility] [address] [id number] [address] [place] [address], [place] [address] 11 Oct, 2014 [facility] [address] [id number] [address] [place] [address], [place] [address] 11 Oct, 2014 [facility] [address] [id number] [address] [place] [address], [place] [address] Sep, 2014 [facility] [address] [id number] [address] [place] [address], [place] [address] Sep, 2014 [facility] [address] [id number] [address] [place] [address], [place] [address] 19 Sep, 2014 [facility] [address] [id number] [address] [place] [address], [place] [address] 18 Sep, 2014 [facility] [address] [id number] [address] [place] [address], [place] [address] Sep, 2014 [facility] [address] [id number] [address] [place] [address], [place] [address] Sep, 2014 [facility] [address] [id number] [address] [place] [address], [place] [address] Sep, 2014 [facility] [address] [id number] [address] [place] [address], [place] [address] Aug, [facility] [address] [id number] [address] [place] [address], [place] [address] Aug, [facility] [address] [id number] [address] [place] [address], [place] [address] Aug, [facility] [address] [id number] [address] [place] [address], [place] [address] Aug, [facility] [address] [id number] [address] [place] [address], [place] [address] Aug, [facility] [address] [id number] [address] [place] [address], [place] [address] Aug, [facility] [address] [id number] [address] [place] [address], [place] [address] Jul, [facility] [address] [id number] [address] [place] [address], [place] [address] Jul, [facility] [address] [id number] [address] [place] [address], [place] [address] Jul, [facility] [address] [id number] [address] [place] [address], [place] [address] Jul, [facility] [address] [id number] [address] [place] [address], [place] [address] Jul, [facility] [address] [id number] [address] [place] [address], [place] [address] Jun, [facility] [address] [id number] [address] [place] [address], [place] [address] Jun, [facility] [address] [id number] [address] [place] [address], [place] [address] Jun, [facility] [address] [id number] [address] [place] [address], [place] [address] Jun, [facility] [address] [id number] [address] [place] [address], [place] [address] Jun, [facility] [address] [id number] [address] [place] [address], [place] [address] Jun, [facility] [address] [id number] [address] [place] [address], [place] [address] May, [facility] [address] [id number] [address] [place] [address], [place] [address] May, [facility] [address] [id number] [address] [place] [address], [place] [address] May, [facility] [address] [id number] [address] [place] [id number] May, [facility] [address] [id number] [address] [place] [address], [place] [address] May, [facility] [address] [id number] [address] [place] [address], [place] [address] May, [facility] [address] [id number] [address] [place] [address], [place] [address] May, [facility] [address] [id number] [address] [place] [address], [place] [address] May, [facility] [address] [id number] [address] [place] [address], [place] [address] May, [facility] [address] [id number] [address] [place] [address], [place] [address] Apr, [facility] [address] [id number] [address] [place] [address], [place] [address] Apr, [facility] [address] [id number] [address] [place] [address], [place] [address] Apr, [facility] [address] [id number] [address] [place] [address], [place] [address] Apr, [facility] [address] [id number] [address] [place] [address], [place] [address] Mar, [facility] [address] [id number] [address] [place] [address], [place] [address] Mar, [facility] [address] [id number] [address] [place] [address], [place] [address] Mar, [facility] [address] [id number] [address] [place] [address], [place] [address] Mar, [facility] [address] [id number] [address] [place] [address], [place] [address] Mar, [facility] [address] [id number] [address] [place] [address], [place] [address] Mar, [facility] [address] [id number] [address] [place] [address], [place] [address] Feb, [facility] [address] [id number] [address] [place] [address], [place] [address] Feb, [facility] [address] [id number] [address] [place] [address], [place] [address] Feb, [facility] [address] [id number] [address] [place] [address], [place] [address] Feb, [facility] [address] [id number] [facility] [place] [address] Feb, 2013 [facility] [address] [id number] [facility] [place] [address] Feb, [facility] [address] [id number] [address] [place] [address], [place] [address] Feb, 2013 [facility] [address] [id number] [address] [place] [address], [place] [address] Feb, 2013 [facility] [address] [id number] [address] [place] [address], [place] [address] Feb, 2013 [facility] [address] [id number] [address] [place] [address], [place] [address] Feb, [facility] [address] [id number] [address] [place] [address], [place] [address] Feb, [facility] [address] [id number] [address] [place] [address], [place] [address] Feb, [facility] [address] [id number] [address] [place] [address], [place] [address] Jan, [facility] [address] [id number] [address] [place] [address], [place] [address] Jan, [facility] [address] [id number] [address] [place] [address], [place] [address] Jan, [facility] [address] [id number] [address] [place] [address], [place] [address] Jan, [facility] [address] [id number] [address] [place] [address], [place] [address] Jan, [facility] [address] [id number] [address] [place] [address], [place] [address] Jan, [facility] [address] [id number] [address] [place] [address], [place] [address] Jan, [facility] [address] [id number] [address] [place] [address], [place] [address] Jan, [facility] [address] [id number] [address] [place] [address], [place] [address] Jan, [facility] [address] [id number] [address] [place] [address], [place] [address] Jan, [facility] [address] [id number] [address] [place] [address], [place] [address] Jan, [facility] [address] [id number] [address] [place] [address], [place] [address] Jan, [facility] [address] [id number] [address] [place] [address], [place] [address] Jan, [facility] [address] [id number] [address] [place] [address], [place] [address] Jan, [facility] [address] [id number] [address] [place] [address], [place] [address] Jan, [facility] [address] [id number] [address] [place] [address], [place] [address] Jan, [facility] [address] [id number] [address] [place] [address], [place] [address] Jan, [facility] [address] [id number] [address] [place] [address], [place] [address] December, [facility] [address] [id number] [address] [place] [address], [place] [address] December, [facility] [address] [id number] [address] [place] [address], [place] [address] December, [facility] [address] [id number] [address] [place] [address], [place] [address] December, [facility] [address] [id number] [address] [place] [address], [place] [address] December, [facility] [address] [id number] [address] [place] [address], [place] [address] December, [facility] [address] [id number] [address] [place] [address], [place] [address] Nov, [facility] [address] [id number] [address] [place] [address], [place] [address] Nov, [facility] [address] [id number] [address] [place] [address], [place] [address] Nov, [facility] [address] [id number] [address] [place] [address], [place] [address] Nov, [facility] [address] [id number] [address] [place] [address], [place] [address] Nov, [facility] [address] [id number] [address] [place] [address], [place] [address] Nov, [facility] [address] [id number] [address] [place] [address], [place] [address] Nov, [facility] [address] [id number] [address] [place] [address], [place] [address] Nov, [facility] [address] [id number] [address] [place] [address], [place] [address] Nov, [facility] [address] [id number] [address] [place] [address], [place] [address] Nov, [facility] [address] [id number] [address] [place] [address], [place] [address] Nov, [facility] [address] [id number] [address] [place] [address], [place] [address] Nov, [facility] [address] [id number] [address] [place] [address], [place] [address] Nov, [facility] [address] [id number] [address] [place] [address], [place] [address] Nov, [facility] [address] [id number] [address] [place] [address], [place] [address] Nov, [facility] [address] [id number] [address] [place] [address], [place] [address] Nov, [facility] [address] [id number] [address] [place] [address], [place] [address] Oct, [facility] [address] [id number] [address] [place] [address], [place] [address] Oct, [facility] [address] [id number] [address] [place] [address], [place] [address] Oct, [facility] [address] [id number] [address] [place] [address], [place] [address] Oct, [facility] [address] [id number] [address] [place] [address], [place] [address] Oct, [facility] [address] [id number] [address] [place] [address], [place] [address] Oct, [facility] [address] [id number] [address] [place] [address], [place] [address] Oct, [facility] [address] [id number] [address] [place] [address], [place] [address] Oct, [facility] [address] [id number] [address] [place] [address], [place] [address] Sep, [facility] [address] [id number] [address] [place] [address], [place] [address] Sep, [facility] [address] [id number] [address] [place] [address], [place] [address] Sep, [facility] [address] [id number] [address] [place] [address], [place] [address] Sep, [facility] [address] [id number] [address] [place] [address], [place] [address] Sep, [facility] [address] [id number] [address] [place] [address], [place] [address] Sep, [facility] [address] [id number] [address] [place] [address], [place] [address] Aug, [facility] [address] [id number] [address] [place] [address], [place] [address] Aug, [facility] [address] [id number] [address] [place] [address], [place] [address] Aug, [facility] [address] [id number] [address] [place] [address], [place] [address] Aug, [facility] [address] [id number] [address] [place] [address], [place] [address] Aug, [facility] [address] [id number] [address] [place] [address], [place] [address] Aug, [facility] [address] [id number] [address] [place] [address], [place] [address] Aug, [facility] [address] [id number] [address] [place] [address], [place] [address] Aug, [facility] [address] [id number] [address] [place] [address], [place] [address] Jul, [facility] [address] [id number] [address] [place] [address], [place] [address] Jul, [facility] [address] [id number] [address] [place] [address], [place] [address] Jul, [facility] [address] [id number] [address] [place] [address], [place] [address] Jul, [facility] [address] [id number] [address] [place] [address], [place] [address] Jul, [facility] [address] [id number] [address] [place] [address], [place] [address] Jul, [facility] [address] [id number] [address] [place] [address], [place] [address] Jul, [facility] [address] [id number] [address] [place] [address], [place] [address] Jul, [facility] [address] [id number] [address] [place] [address], [place] [address] Jul, [facility] [address] [id number] [address] [place] [address], [place] [address] 14 Jun, 2013 [facility] [address] [id number] [address] [place] [address], [place] [address] 14 Jun, 2013 [facility] [address] [id number] [address] [place] [address], [place] [address] Jun, [facility] [address] [id number] [address] [place] [address], [place] [address] Jun, [facility] [address] [id number] [address] [place] [address], [place] [address] Jun, [facility] [address] [id number] [address] [place] [address], [place] [address] Jun, [facility] [address] [id number] [address] [place] [address], [place] [address] 31 May, 2013 [facility] [address] [id number] [address] [place] [address], [place] [address] 31 May, 2013 [facility] [address] [id number] [address] [place] [address], [place] [address] 17 May, 2013 [facility] [address] [id number] [address] [place] [address], [place] [address] 17 May, 2013 [facility] [address] [id number] [address] [place] [address], [place] [address] 14 May, 2013 [facility] [address] [id number] [address] [place] [address], [place] [address] 14 May, 2013 [facility] [address] [id number] [address] [place] [address], [place] [address] 10 May, 2013 [facility] [address] [id number] [address] [place] [address], [place] [address] 10 May, 2013 [facility] [address] [id number] [address] [place] [id number] 07 May, 2013 [facility] [address] [id number] [address] [place] [id number] 20 Sep, 2012 [facility] [address] [id number] [address] [place] [address], [place] [address] 19 Sep, 2012 [facility] [address] [id number] [address] [place] [address], [place] [address] 12 Apr, 2012 [facility] [address] [id number] [address] [place] [address], [place] [address] 24 Sep, 2011 [facility] [address] [id number] [address] [place] [address], [place] [address] 21 Sep, 2011 [facility] [address] [id number] [address] [place] [address], [place] [address] 21 Apr, 2011 [facility] [address] [id number] [address] [place] [address], [place] [address] 14 Apr, 2011 [facility] [address] [id number] [address] [place] [address], [place] [address] 10 Apr, 2011 [facility] [address] [id number] [address] [place] [address], [place] [address] 06 Apr, 2011 [facility] [address] [id number] [address] [place] [address], [place] [address] 04 Apr, 2011 [facility] [address] [id number] [address] [place] [address], [place] [address] 31 Mar, 2012 [facility] [address] [id number] [address] [place] [address], [place] [address] 28 Mar, 2012 [facility] [address] [id number] [address] [place] [address], [place] [address] 27 Mar, 2012 [facility] [address] [id number] [address] [place] [address], [place] [address] 10 Mar, 2012 [facility] [facility] [address] [id number] [address] [place] [address], [place] [address] 08 Mar, 2012 [facility] [address] [id number] [address] [place] [address], [place] [address] 03 Mar, 2012 [facility] [address] [id number] [address] [place] [address], [place] [address] Feb, [facility] [address] [id number] [address] [place] [address], [place] [address] Feb, [facility] [address] [id number] [address] [place] [address], [place] [address] Feb, [facility] [address] [id number] [address] [place] [address], [place] [address] Jan, [facility] [address] [id number] [address] [place] [address], [place] [address] Jan, [facility] [address] [id number] [address] [place] [address], [place] [address] Jan, [facility] [address] [id number] [address] [place] [address], [place] [address] Jan, [facility] [address] [id number] [address] [place] [address], [place] [address] Jan, [facility] [address] [id number] [address] [place] [address], [place] [address] Jan, [facility] [address] [id number] [address] [place] [address], [place] [address] Jan, [facility] [address] [id number] [address] [place] [address], [place] [address] Jan, [facility] [address] [id number] [address] [place] [address], [place] [address] December, [facility] [address] [id number] [address] [place] [address], [place] [address] December, [facility] [address] [id number] [address] [place] [address], [place] [address] December, [facility] [address] [id number] [address] [place] [address], [place] [address] December, [facility] [address] [id number] [address] [place] [address], [place] [address] December, [facility] [address] [id number] [address] [place] [address], [place] [address] December, [facility] [address] [id number] [address] [place] [address], [place] [address] 13 Nov, 2011 [facility] [address] [id number] [address] [place] [address], [place] [address] 13 Nov, 2011 [facility] [address] [id number] [address] [place] [address], [place] [address] Nov, [facility] [address] [id number] [address] [place] [address], [place] [address] Nov, [facility] [address] [id number] [address] [place] [address], [place] [address] Nov, [facility] [address] [id number] [address] [place] [address], [place] [address] Oct, [facility] [address] [id number] [address] [place] [address], [place] [address] 17 Sep, 2011 [facility] [address] [id number] [address] [place] [address], [place] [address] Aug, [facility] [address] [id number] [address] [place] [address], [place] [address] Aug, [facility] [address] [id number] [address] [place] [address], [place] [address] Aug, [facility] [address] [id number] [address] [place] [address], [place] [address] Aug, [facility] [address] [id number] [address] [place] [address], [place] [address] Aug, [facility] [address] [id number] [address] [place] [address], [place] [address] Jul, [facility] [address] [id number] [address] [place] [address], [place] [address] Jul, [facility] [address] [id number] [address] [place] [address], [place] [address] Jun, [facility] [address] [id number] [address] [place] [address], [place] [address] Jun, [facility] [address] [id number] [address] [place] [address], [place] [address] Jun, [facility] [address] [id number] [address] [place] [address], [place] [address] May, [facility] [address] [id number] [address] [place] [address], [place] [address] May, [facility] [address] [id number] [address] [place] [address], [place] [address] 16 Oct, 2010 [facility] [address] [id number] [address] [place] [address], [place] [address] Oct, [facility] [address] [id number] [address] [place] [address], [place] [address] 29 Jul, 2010 [facility] [address] [id number] [address] [place] [address], [place] [address] 08 Jul, 2010 [facility] [address] [id number] [address] [place] [address], [place] [address] Jul, [facility] [address] [id number] [address] [place] [address], [place] [address] Jul, [facility] [address] [id number] [address] [place] [address], [place] [address] Jul, [facility] [address] [id number] [address] [place] [address], [place] [address] Jun, [facility] [address] [id number] [address] [place] [address], [place] [address] Jun, [facility] [address] [id number] [address] [place] [address], [place] [address] Jun, [facility] [address] [id number] [address] [place] [address], [place] [address] May, [facility] [address] [facility] [id number] [address] [place] [address] 16 Mar, 2010 IMMUNIZATIONS No Known Immunizations [...]
--- OUTSIDE RECORDS SUMMARY | 2019-11-28 22:41 | XMS REPORT ---
Author Author Caren LYLE Organization [facility] [place] Address [address] [place] [address] Care Team Providers Care Sales Department Manager Name Role Phone LAURIE LYLE Unavailable PROBLEMS Type Condition ICD9-CM Code CUD80-SZ Code Onset Dates Condition S tatus SNOMED Code Problem COPD (chronic obstructive pulmonary disease) J44.9 Active 86206382 Problem Diabetes E11.9 Active 37658481 Problem Diabetic neuropathy E11.40 Active 494594762 Problem Arthritis M19.90 Active 9801290 ALLERGIES No Information ENCOUNTERS Encounter Location Date Diagnosis [facility] [place] [address] [facility] [id number] [address] [place] [address] December, [facility] [place] [address] [id number] [address] [place] [address] Aug, Arthritis M19.90 [facility] [place] [address] [facility] [place] [id number] [address] [place] [address] Jul, [facility] [place] [address] [facility] [place] [id number] [address] [place] [address] Jul, [facility] [place] [address] [facility] [place] [id number] [address] [place] [address] Jul, [facility] [place] [address] [id number] [address] [place] [address] Jul, [facility] [place] [address] [facility] [place] [id number] [address] [place] [address] Jul, Diabetes E11.9 ; Diabetic ne uropathy E11.40 ; Arthritis M19.90 and COPD (chronic obstructive pulmonary disease) J44.9 [facility] [place] [address] [facility] [place] [id number] [address] [place] [address] Jul, [facility] [address] [id number] [address] [place] [address], [place] [address] 23 Jun, 2015 [facility] [address] [id number] [address] [place] [address], [place] [address] 23 Jun, 2015 [facility] [address] [id number] [address] [place] [address], [place] [address] 17 Jun, 2014 [facility] [address] [id number] [address] [place] [address], [place] [address] 10 Jun, 2014 [facility] [address] [id number] [address] [place] [address], [place] [address] 15 May, 2015 [facility] [address] [id number] [address] [place] [address], [place] [address] 13 May, 2015 [facility] [address] [id number] [address] [place] [address], [place] [address] 07 May, 2015 [facility] [address] [id number] [address] [place] [address], [place] [address] 22 Sep, 2014 [facility] [address] [id number] [address] [place] [address], [place] [address] 21 Sep, 2014 [facility] [address] [id number] [address] [place] [address], [place] [address] 21 Sep, 2014 [facility] [address] [id number] [address] [place] [address], [place] [address] 15 Sep, 2014 [facility] [address] [id number] [address] [place] [address], [place] [address] 11 Sep, 2014 [facility] [address] [id number] [address] [place] [address], [place] [address] 09 Sep, 2014 [facility] [address] [id number] [address] [place] [address], [place] [address] 08 Sep, 2014 [facility] [address] [id number] [address] [place] [address], [place] [address] 03 Sep, 2014 [facility] [address] [id number] [address] [place] [address] [address] Apr, [facility] [place] [address] [facility] [place] [id number] [address] [place] [address] Mar, [facility] [place] [address] [facility] [place] [id number] [address] [place] [address] Mar, [facility] [place] [address] [facility] [place] [id number] [address] [place] [address] Mar, [facility] [place] [address] [facility] [place] [id number] [address] [place] [address] Mar, [facility] [place] [address] [facility] [place] [id number] [address] [place] [address] Mar, [facility] [place] [address] [facility] [place] [id number] [address] [place] [address] Mar, Diabetes mellitus 250.00 ; C OPD (chronic obstructive pulmonary disease) 496 ; Anxiety 300.00 and Arthritis 716.90 [facility] [place] [address] [facility] [place] [id number] [address] [place] [address] Feb, [facility] [place] [address] [facility] [place] [id number] [address] [place] [address] Feb, [facility] [place] [address] [facility] [place] [id number] [address] [place] [address] Feb, [facility] [place] [address] [facility] [place] [id number] [address] [place] [address] Feb, [facility] [place] [address] [facility] [place] [id number] [address] [place] [address] Jan, Seborrheic keratosis 702.19 and Nevus 216.9 [facility] [place] [address] [facility] [id number] [address] [place] [address] Jan, [facility] [place] [address] [facility] [place] [id number] [address] [place] [address] Jan, Routine gynecological examin ation V72.31 ; Breast cancer screening V76.10 ; Hot flashes 627.2 ; Atypical nevi 216.9 and Constipation 564.00 [facility] [address] [id number] [address] [place] [address], [place] [address] Jan, [facility] [address] [id number] [address] [place] [address], [place] [address] December, [facility] [address] [id number] [address] [place] [address], [place] [address] December, [facility] [address] [id number] [address] [place] [address], [place] [address] Nov, [facility] [address] [id number] [address] [place] [address], [place] [address] Nov, [facility] [address] [id number] [address] [place] [address], [place] [address] Oct, [facility] [address] [id number] [address] [place] [address], [place] [address] 23 Oct, 2014 [facility] [address] [id number] [address] [place] [address], [place] [address] 18 Oct, 2014 [facility] [address] [id number] [address] [place] [address], [place] [address] 18 Oct, 2014 [facility] [address] [id number] [address] [place] [address], [place] [address] 17 Oct, 2014 [facility] [address] [id number] [address] [place] [address], [place] [address] 17 Oct, 2014 [facility] [address] [id number] [address] [place] [address] 16 Oct, 2014 [facility] [address] [id number] [address] [place] [address], [place] [address] 16 Oct, 2014 [facility] [address] [id number] [address] [place] [address], [place] [address] 11 Oct, 2014 [facility] [address] [id number] [address] [place] [address], [place] [address] 11 Oct, 2014 [facility] [address] [id number] [address] [place] [address], [place] [address] Sep, 2014 [facility] [address] [id number] [address] [place] [address], [place] [address] Sep, 2014 [facility] [address] [id number] [address] [place] [address], [place] [address] 19 Sep, 2014 [facility] [address] [id number] [address] [place] [address], [place] [address] 18 Sep, 2014 [facility] [address] [id number] [address] [place] [address], [place] [address] Sep, 2014 [facility] [address] [id number] [address] [place] [address], [place] [address] Sep, 2014 [facility] [address] [id number] [address] [place] [address], [place] [address] Sep, 2014 [facility] [address] [id number] [address] [place] [address], [place] [address] Aug, [facility] [address] [id number] [address] [place] [address], [place] [address] Aug, [facility] [address] [id number] [address] [place] [address], [place] [address] Aug, [facility] [address] [id number] [address] [place] [address], [place] [address] Aug, [facility] [address] [id number] [address] [place] [address], [place] [address] Aug, [facility] [address] [id number] [address] [place] [address], [place] [address] Aug, [facility] [address] [id number] [address] [place] [address], [place] [address] Jul, [facility] [address] [id number] [address] [place] [address], [place] [address] Jul, [facility] [address] [id number] [address] [place] [address], [place] [address] Jul, [facility] [address] [id number] [address] [place] [address], [place] [address] Jul, [facility] [address] [id number] [address] [place] [address], [place] [address] Jul, [facility] [address] [id number] [address] [place] [address], [place] [address] Jun, [facility] [address] [id number] [address] [place] [address], [place] [address] Jun, [facility] [address] [id number] [address] [place] [address], [place] [address] Jun, [facility] [address] [id number] [address] [place] [address], [place] [address] Jun, [facility] [address] [id number] [address] [place] [address], [place] [address] Jun, [facility] [address] [id number] [address] [place] [address], [place] [address] Jun, [facility] [address] [id number] [address] [place] [address], [place] [address] May, [facility] [address] [id number] [address] [place] [address], [place] [address] May, [facility] [address] [id number] [address] [place] [address], [place] [address] May, [facility] [address] [id number] [address] [place] [address] May, [facility] [address] [id number] [address] [place] [address], [place] [address] May, [facility] [address] [id number] [address] [place] [address], [place] [address] May, [facility] [address] [id number] [address] [place] [address], [place] [address] May, [facility] [address] [id number] [address] [place] [address], [place] [address] May, [facility] [address] [id number] [address] [place] [address], [place] [address] May, [facility] [address] [id number] [address] [place] [address], [place] [address] Apr, [facility] [address] [id number] [address] [place] [address], [place] [address] Apr, [facility] [address] [id number] [address] [place] [address], [place] [address] Apr, [facility] [address] [id number] [address] [place] [address], [place] [address] Apr, [facility] [address] [id number] [address] [place] [address], [place] [address] Mar, [facility] [address] [id number] [address] [place] [address], [place] [address] Mar, [facility] [address] [id number] [address] [place] [address], [place] [address] Mar, [facility] [address] [id number] [address] [place] [address], [place] [address] Mar, [facility] [address] [id number] [address] [place] [address], [place] [address] Mar, [facility] [address] [id number] [address] [place] [address], [place] [address] Mar, [facility] [address] [id number] [address] [place] [address], [place] [address] Feb, [facility] [address] [id number] [address] [place] [address], [place] [address] Feb, [facility] [address] [id number] [address] [place] [address], [place] [address] Feb, [facility] [address] [id number] [address] [place] [address], [place] [address] Feb, [facility] [address] [id number] [facility] [address] Feb, 2013 [facility] [address] [id number] [facility] [address] Feb, [facility] [address] [id number] [address] [place] [address], [place] [address] Feb, 2013 [facility] [address] [id number] [address] [place] [address], [place] [address] Feb, 2013 [facility] [address] [id number] [address] [place] [address], [place] [address] Feb, 2013 [facility] [address] [id number] [address] [place] [address], [place] [address] Feb, [facility] [address] [id number] [address] [place] [address], [place] [address] Feb, [facility] [address] [id number] [address] [place] [address], [place] [address] Feb, [facility] [address] [id number] [address] [place] [address], [place] [address] Jan, [facility] [address] [id number] [address] [place] [address], [place] [address] Jan, [facility] [address] [id number] [address] [place] [address], [place] [address] Jan, [facility] [address] [id number] [address] [place] [address], [place] [address] Jan, [facility] [address] [id number] [address] [place] [address], [place] [address] Jan, [facility] [address] [id number] [address] [place] [address], [place] [address] Jan, [facility] [address] [id number] [address] [place] [address], [place] [address] Jan, [facility] [address] [id number] [address] [place] [address], [place] [address] Jan, [facility] [address] [id number] [address] [place] [address], [place] [address] Jan, [facility] [address] [id number] [address] [place] [address], [place] [address] Jan, [facility] [address] [id number] [address] [place] [address], [place] [address] Jan, [facility] [address] [id number] [address] [place] [address], [place] [address] Jan, [facility] [address] [id number] [address] [place] [address], [place] [address] Jan, [facility] [address] [id number] [address] [place] [address], [place] [address] Jan, [facility] [address] [id number] [address] [place] [address], [place] [address] Jan, [facility] [address] [id number] [address] [place] [address], [place] [address] Jan, [facility] [address] [id number] [address] [place] [address], [place] [address] Jan, [facility] [address] [id number] [address] [place] [address], [place] [address] December, [facility] [address] [id number] [address] [place] [address], [place] [address] December, [facility] [address] [id number] [address] [place] [address], [place] [address] December, [facility] [address] [id number] [address] [place] [address], [place] [address] December, [facility] [address] [id number] [address] [place] [address], [place] [address] December, [facility] [address] [id number] [address] [place] [address], [place] [address] December, [facility] [address] [id number] [address] [place] [address], [place] [address] Nov, [facility] [address] [id number] [address] [place] [address], [place] [address] Nov, [facility] [address] [id number] [address] [place] [address], [place] [address] Nov, [facility] [address] [id number] [address] [place] [address], [place] [address] Nov, [facility] [address] [id number] [address] [place] [address], [place] [address] Nov, [facility] [address] [id number] [address] [place] [address], [place] [address] Nov, [facility] [address] [id number] [address] [place] [address], [place] [address] Nov, [facility] [address] [id number] [address] [place] [address], [place] [address] Nov, [facility] [address] [id number] [address] [place] [address], [place] [address] Nov, [facility] [address] [id number] [address] [place] [address], [place] [address] Nov, [facility] [address] [id number] [address] [place] [address], [place] [address] Nov, [facility] [address] [id number] [address] [place] [address], [place] [address] Nov, [facility] [address] [id number] [address] [place] [address], [place] [address] Nov, [facility] [address] [id number] [address] [place] [address], [place] [address] Nov, [facility] [address] [id number] [address] [place] [address], [place] [address] Nov, [facility] [address] [id number] [address] [place] [address], [place] [address] Nov, [facility] [address] [id number] [address] [place] [address], [place] [address] Oct, [facility] [address] [id number] [address] [place] [address], [place] [address] Oct, [facility] [address] [id number] [address] [place] [address], [place] [address] Oct, [facility] [address] [id number] [address] [place] [address], [place] [address] Oct, [facility] [address] [id number] [address] [place] [address], [place] [address] Oct, [facility] [address] [id number] [address] [place] [address], [place] [address] Oct, [facility] [address] [id number] [address] [place] [address], [place] [address] Oct, [facility] [address] [id number] [address] [place] [address], [place] [address] Oct, [facility] [address] [id number] [address] [place] [address], [place] [address] Sep, [facility] [address] [id number] [address] [place] [address], [place] [address] Sep, [facility] [address] [id number] [address] [place] [address], [place] [address] Sep, [facility] [address] [id number] [address] [place] [address], [place] [address] Sep, [facility] [address] [id number] [address] [place] [address], [place] [address] Sep, [facility] [address] [id number] [address] [place] [address], [place] [address] Sep, [facility] [address] [id number] [address] [place] [address], [place] [address] Aug, [facility] [address] [id number] [address] [place] [address], [place] [address] Aug, [facility] [address] [id number] [address] [place] [address], [place] [address] Aug, [facility] [address] [id number] [address] [place] [address], [place] [address] Aug, [facility] [address] [id number] [address] [place] [address], [place] [address] Aug, [facility] [address] [id number] [address] [place] [address], [place] [address] Aug, [facility] [address] [id number] [address] [place] [address], [place] [address] Aug, [facility] [address] [id number] [address] [place] [address], [place] [address] Aug, [facility] [address] [id number] [address] [place] [address], [place] [address] Jul, [facility] [address] [id number] [address] [place] [address], [place] [address] Jul, [facility] [address] [id number] [address] [place] [address], [place] [address] Jul, [facility] [address] [id number] [address] [place] [address], [place] [address] Jul, [facility] [address] [id number] [address] [place] [address], [place] [address] Jul, [facility] [address] [id number] [address] [place] [address], [place] [address] Jul, [facility] [address] [id number] [address] [place] [address], [place] [address] Jul, [facility] [address] [id number] [address] [place] [address], [place] [address] Jul, [facility] [address] [id number] [address] [place] [address], [place] [address] Jul, [facility] [address] [id number] [address] [place] [address], [place] [address] 14 Jun, 2013 [facility] [address] [id number] [address] [place] [address], [place] [address] 14 Jun, 2013 [facility] [address] [id number] [address] [place] [address], [place] [address] Jun, [facility] [address] [id number] [address] [place] [address], [place] [address] Jun, [facility] [address] [id number] [address] [place] [address], [place] [address] Jun, [facility] [address] [id number] [address] [place] [address], [place] [address] Jun, [facility] [address] [id number] [address] [place] [address], [place] [address] 31 May, 2013 [facility] [address] [id number] [address] [place] [address], [place] [address] 31 May, 2013 [facility] [address] [id number] [address] [place] [address], [place] [address] 17 May, 2013 [facility] [address] [id number] [address] [place] [address], [place] [address] 17 May, 2013 [facility] [address] [id number] [address] [place] [address], [place] [address] 14 May, 2013 [facility] [address] [id number] [address] [place] [address], [place] [address] 14 May, 2013 [facility] [address] [id number] [address] [place] [address], [place] [address] 10 May, 2013 [facility] [address] [id number] [address] [place] [address], [place] [address] 10 May, 2013 [facility] [address] [id number] [address] [place] [address] 07 May, 2013 [facility] [address] [id number] [address] [place] [address] 20 Sep, 2012 [facility] [address] [id number] [address] [place] [address], [place] [address] 19 Sep, 2012 [facility] [address] [id number] [address] [place] [address], [place] [address] 12 Apr, 2012 [facility] [address] [id number] [address] [place] [address], [place] [address] 24 Sep, 2011 [facility] [address] [id number] [address] [place] [address], [place] [address] 21 Sep, 2011 [facility] [address] [id number] [address] [place] [address], [place] [address] 21 Apr, 2011 [facility] [address] [id number] [address] [place] [address], [place] [address] 14 Apr, 2011 [facility] [address] [id number] [address] [place] [address], [place] [address] 10 Apr, 2011 [facility] [address] [id number] [address] [place] [address], [place] [address] 06 Apr, 2011 [facility] [address] [id number] [address] [place] [address], [place] [address] 04 Apr, 2011 [facility] [address] [id number] [address] [place] [address], [place] [address] 31 Mar, 2012 [facility] [address] [id number] [address] [place] [address], [place] [address] 28 Mar, 2012 [facility] [address] [id number] [address] [place] [address], [place] [address] 27 Mar, 2012 [facility] [address] [id number] [address] [place] [address], [place] [address] 10 Mar, 2012 [facility] [address] [id number] [address] [place] [address], [place] [address] 08 Mar, 2012 [facility] [address] [id number] [address] [place] [address], [place] [address] 03 Mar, 2012 [facility] [address] [id number] [address] [place] [address], [place] [address] Feb, [facility] [address] [id number] [address] [place] [address], [place] [address] Feb, [facility] [address] [id number] [address] [place] [address], [place] [address] Feb, [facility] [address] [id number] [address] [place] [address], [place] [address] Jan, [facility] [address] [id number] [address] [place] [address], [place] [address] Jan, [facility] [address] [id number] [address] [place] [address], [place] [address] Jan, [facility] [address] [id number] [address] [place] [address], [place] [address] Jan, [facility] [address] [id number] [address] [place] [address], [place] [address] Jan, [facility] [address] [id number] [address] [place] [address], [place] [address] Jan, [facility] [address] [id number] [address] [place] [address], [place] [address] Jan, [facility] [address] [id number] [address] [place] [address], [place] [address] Jan, [facility] [address] [id number] [address] [place] [address], [place] [address] December, [facility] [address] [id number] [address] [place] [address], [place] [address] December, [facility] [address] [id number] [address] [place] [address], [place] [address] December, [facility] [address] [id number] [address] [place] [address], [place] [address] December, [facility] [address] [id number] [address] [place] [address], [place] [address] December, [facility] [address] [id number] [address] [place] [address], [place] [address] December, [facility] [address] [id number] [address] [place] [address], [place] [address] 13 Nov, 2011 [facility] [address] [id number] [address] [place] [address], [place] [address] 13 Nov, 2011 [facility] [address] [id number] [address] [place] [address], [place] [address] Nov, [facility] [address] [id number] [address] [place] [address], [place] [address] Nov, [facility] [address] [id number] [address] [place] [address], [place] [address] Nov, [facility] [address] [id number] [address] [place] [address], [place] [address] Oct, [facility] [address] [id number] [address] [place] [address], [place] [address] 17 Sep, 2011 [facility] [address] [id number] [address] [place] [address], [place] [address] Aug, [facility] [address] [id number] [address] [place] [address], [place] [address] Aug, [facility] [address] [id number] [address] [place] [address], [place] [address] Aug, [facility] [address] [id number] [address] [place] [address], [place] [address] Aug, [facility] [address] [id number] [address] [place] [address], [place] [address] Aug, [facility] [address] [id number] [address] [place] [address], [place] [address] Jul, [facility] [address] [id number] [address] [place] [address], [place] [address] Jul, [facility] [address] [id number] [address] [place] [address], [place] [address] Jun, [facility] [address] [id number] [address] [place] [address], [place] [address] Jun, [facility] [address] [id number] [address] [place] [address], [place] [address] Jun, [facility] [address] [id number] [address] [place] [address], [place] [address] May, [facility] [address] [id number] [address] [place] [address], [place] [address] May, [facility] [address] [id number] [address] [place] [address], [place] [address] 16 Oct, 2010 [facility] [address] [id number] [address] [place] [address], [place] [address] Oct, [facility] [address] [id number] [address] [place] [address], [place] [address] 29 Jul, 2010 [facility] [address] [id number] [address] [place] [address], [place] [address] 08 Jul, 2010 [facility] [address] [id number] [address] [place] [address], [place] [address] Jul, [facility] [address] [id number] [address] [place] [address], [place] [address] Jul, [facility] [address] [id number] [address] [place] [address], [place] [address] Jul, [facility] [address] [id number] [address] [place] [address], [place] [address] Jun, [facility] [address] [id number] [address] [place] [address], [place] [address] Jun, [facility] [address] [id number] [address] [place] [address], [place] [address] Jun, [facility] [address] [id number] [address] [place] [address], [place] [address] May, [facility] [address] [facility] [id number] [address] [place] [address] 16 Mar, 2010 IMMUNIZATIONS No Known Immunizations [...]
--- OUTSIDE RECORDS SUMMARY | 2019-11-28 22:42 | XMS REPORT ---
Author Author Caren LYLE Organization [facility] Address [address] [place] [address] Care Team Providers Care Renewable Energy Consultant Name Role Phone LAURIE LYLE Unavailable PROBLEMS Type Condition ICD9-CM Code SOU93-MW Code Onset Dates Condition S tatus SNOMED Code Problem COPD (chronic obstructive pulmonary disease) J44.9 Active 24045841 Problem Diabetes E11.9 Active 86660184 Problem Diabetic neuropathy E11.40 Active 050556374 Problem Arthritis M19.90 Active 9226683 ALLERGIES No Information ENCOUNTERS Encounter Location Date Diagnosis [place] [address] [address] December, [facility] [address] [address] Aug, Arthritis M19.90 [facility] [address] [address] Jul, [facility] [address] [address] Jul, [facility] [address] [address] Jul, [facility] [address] [address] Jul, [facility] [address] [address] Jul, Diabetes E11.9 ; Diabetic neuropathy E11 .40 ; Arthritis M19.90 and COPD (chronic obstructive pulmonary disease) J44.9 [facility] [address] [address] Jul, [facility] [address] [address] Jun, 2014 [facility] [place] [facility] [address] [facility] [id number] [place] [address] 23 Jun, 2014 [facility] [place] [facility] [address] [id number] [place] [address] 17 Jun, 2014 [facility] [place] [facility] [address] [id number] [place] [address] 10 Jun, 2014 [facility] [place] [facility] [address] [id number] [place] [address] 15 May, 2015 [facility] [place] [facility] [address] [facility] [id number] [place] [address] 13 May, 2015 [facility] [place] [facility] [address] [id number] [place] [address] 07 May, 2014 [facility] [place] [facility] [address] [id number] [place] [address] 22 Sep, 2014 [facility] [place] [facility] [address] [id number] [place] [address] 21 Sep, 2014 [facility] [place] [facility] [address] [id number] [place] [address] 21 Sep, 2014 [facility] [place] [facility] [address] [id number] [place] [address] 15 Sep, 2014 [facility] [place] [facility] [address] [id number] [place] [address] 11 Sep, 2014 [facility] [place] [facility] [address] [id number] [place] [address] 09 Sep, 2014 [facility] [place] [facility] [address] [id number] [place] [address] 08 Sep, 2014 [facility] [place] [facility] [address] [id number] [place] [address] 03 Sep, 2014 [facility] [place] [facility] [address] [id number] [place] [address] 02 Sep, 2014 [facility] [place] [facility] [address] [id number] [place] [address] 31 Mar, 2014 [facility] [place] [facility] [address] [place] [id number] [place] [address] Mar, [facility] [address] [address] Mar, [facility] [address] [address] Mar, [facility] [address] [address] Mar, [facility] [address] [address] Mar, Diabetes mellitus 250.00 ; COPD (chronic obstructive pulmonary disease) 496 ; Anxiety 300.00 and Arthritis 716.90 [facility] [address] [address] Feb, [facility] [address] [address] Feb, [facility] [address] [address] Feb, [facility] [address] [address] Feb, [facility] [address] [address] Jan, Seborrheic keratosis 702.19 and Nevus 21 6.9 [facility] [address] [address] Jan, [facility] [address] [address] Jan, Routine gynecological examination V72.31 ; Breast cancer screening V76.10 ; Hot flashes 627.2 ; Atypical nevi 216.9 and Constipation 564.00 [facility] [address] [address] Jan, [facility] [address] [address] December, [facility] [address] [address] 05 Dec, 2014 [facility] [place] [facility] [address] [facility] [id number] [place] [address] 14 Nov, 2014 [facility] [place] [facility] [address] [facility] [id number] [place] [address] 13 Nov, 2014 [facility] [place] [facility] [address] [id number] [place] [address] 23 Oct, 2014 [facility] [place] [facility] [address] [facility] [id number] [place] [address] 23 Oct, 2014 [facility] [place] [facility] [address] [facility] [id number] [place] [address] 18 Oct, 2014 [facility] [place] [facility] [address] [id number] [place] [address] 18 Oct, 2014 [facility] [place] [facility] [address] [id number] [place] [address] 17 Oct, 2014 [facility] [place] [facility] [address] [id number] [place] [address] 17 Oct, 2014 [facility] [place] [facility] [address] [id number] [place] [address] 16 Oct, 2014 [facility] [place] [facility] [address] [id number] [place] [address] 16 Oct, 2014 [facility] [place] [facility] [address] [id number] [place] [address] 11 Oct, 2014 [facility] [place] [facility] [address] [id number] [place] [address] Oct, [facility] [place] [facility] [address] [facility] [id number] [place] [address] Sep, [facility] [place] [facility] [address] [id number] [place] [address] Sep, [facility] [place] [facility] [address] [id number] [place] [address] 19 Sep, 2014 [facility] [place] [facility] [address] [id number] [place] [address] 18 Sep, 2014 [facility] [place] [facility] [address] [id number] [place] [address] 18 Sep, 2014 [facility] [place] [facility] [address] [id number] [place] [address] Sep, [facility] [place] [facility] [address] [id number] [place] [address] Sep, [facility] [place] [facility] [address] [id number] [place] [address] Aug, [facility] [place] [facility] [address] [id number] [place] [address] Aug, [facility] [place] [facility] [address] [id number] [place] [address] Aug, [facility] [place] [facility] [address] [id number] [place] [address] Aug, [facility] [place] [facility] [address] [id number] [place] [address] Aug, [facility] [place] [facility] [address] [id number] [place] [address] Aug, [facility] [place] [facility] [address] [id number] [place] [address] Jul, [facility] [place] [facility] [address] [id number] [place] [address] Jul, [facility] [place] [facility] [address] [id number] [place] [address] Jul, [facility] [place] [facility] [address] [id number] [place] [address] Jul, [facility] [place] [facility] [address] [id number] [place] [address] 08 Jul, 2014 [facility] [place] [facility] [address] [id number] [place] [address] Jun, [facility] [place] [facility] [address] [id number] [place] [address] Jun, [facility] [place] [facility] [address] [id number] [place] [address] Jun, [facility] [place] [facility] [address] [id number] [place] [address] Jun, [facility] [place] [facility] [address] [id number] [place] [address] Jun, [facility] [place] [facility] [address] [id number] [place] [address] Jun, [facility] [place] [facility] [address] [id number] [place] [address] May, [facility] [place] [facility] [address] [id number] [place] [address] May, [facility] [place] [facility] [address] [id number] [place] [address] May, [facility] [place] [facility] [address] [id number] [place] [address] May, [facility] [place] [facility] [address] [id number] [place] [address] May, [facility] [place] [facility] [address] [id number] [place] [address] May, [facility] [place] [facility] [address] [id number] [place] [address] May, [facility] [place] [facility] [address] [id number] [place] [address] May, [facility] [place] [facility] [address] [id number] [place] [address] May, [facility] [place] [facility] [address] [id number] [place] [address] Apr, 2013 [facility] [place] [facility] [address] [id number] [place] [address] Apr, 2013 [facility] [place] [facility] [address] [id number] [place] [address] Apr, 2013 [facility] [place] [facility] [address] [id number] [place] [address] Apr, 2013 [facility] [place] [facility] [address] [id number] [place] [address] Mar, [facility] [place] [facility] [address] [id number] [place] [address] Mar, [facility] [place] [facility] [address] [facility] [id number] [place] [address] Mar, [facility] [place] [facility] [address] [facility] [id number] [place] [address] Mar, [facility] [place] [facility] [address] [facility] [id number] [place] [address] Mar, [facility] [place] [facility] [address] [facility] [id number] [place] [address] Mar, [facility] [place] [facility] [address] [facility] [id number] [place] [address] Feb, [facility] [place] [facility] [address] [id number] [place] [address] Feb, [facility] [place] [facility] [address] [id number] [place] [address] Feb, [facility] [place] [facility] [address] [facility] [id number] [place] [address] Feb, [facility] [place] [facility] [address] [facility] [id number] [place] [address] Feb, [facility] [place] [facility] [address] [id number] [place] [address] Feb, [facility] [place] [facility] [address] [facility] [id number] [place] [address] Feb, [facility] [place] [facility] [address] [facility] [id number] [place] [address] Feb, [facility] [place] [facility] [address] [id number] [place] [address] Feb, [facility] [place] [facility] [address] [facility] [id number] [place] [address] Feb, [facility] [place] [facility] [address] [id number] [place] [address] Feb, [facility] [place] [facility] [address] [id number] [place] [address] Feb, 2013 [facility] [place] [facility] [address] [id number] [place] [address] Jan, [facility] [place] [facility] [address] [id number] [place] [address] Jan, [facility] [place] [facility] [address] [id number] [place] [address] Jan, [facility] [place] [facility] [address] [facility] [id number] [place] [address] Jan, [facility] [place] [facility] [address] [id number] [place] [address] Jan, [facility] [place] [facility] [address] [id number] [place] [address] Jan, [facility] [place] [facility] [address] [id number] [place] [address] Jan, [facility] [place] [facility] [address] [id number] [place] [address] Jan, [facility] [place] [facility] [address] [id number] [place] [address] Jan, [facility] [place] [facility] [address] [id number] [place] [address] Jan, [facility] [place] [facility] [address] [id number] [place] [address] Jan, [facility] [place] [facility] [address] [id number] [place] [address] Jan, [facility] [place] [facility] [address] [id number] [place] [address] Jan, [facility] [place] [facility] [address] [id number] [place] [address] Jan, [facility] [place] [facility] [address] [id number] [place] [address] Jan, [facility] [place] [facility] [address] [id number] [place] [address] Jan, [facility] [place] [facility] [address] [id number] [place] [address] Jan, [facility] [place] [facility] [address] [id number] [place] [address] December, [facility] [place] [facility] [address] [id number] [place] [address] December, [facility] [place] [facility] [address] [id number] [place] [address] December, [facility] [place] [facility] [address] [id number] [place] [address] December, [facility] [place] [facility] [address] [id number] [place] [address] December, [facility] [place] [facility] [address] [id number] [place] [address] December, [facility] [place] [facility] [address] [id number] [place] [address] Nov, [facility] [place] [facility] [address] [id number] [place] [address] Nov, [facility] [place] [facility] [address] [id number] [place] [address] Nov, [facility] [place] [facility] [address] [id number] [place] [address] Nov, [facility] [place] [facility] [address] [id number] [place] [address] Nov, [facility] [place] [facility] [address] [id number] [place] [address] Nov, [facility] [place] [facility] [address] [id number] [place] [address] Nov, [facility] [place] [facility] [address] [id number] [place] [address] Nov, [facility] [place] [facility] [address] [id number] [place] [address] Nov, [facility] [place] [facility] [address] [id number] [place] [address] 07 Nov, 2013 [facility] [place] [facility] [address] [facility] [id number] [place] [address] Nov, [facility] [place] [facility] [address] [facility] [id number] [place] [address] Nov, [facility] [place] [facility] [address] [id number] [place] [address] Nov, [facility] [place] [facility] [address] [facility] [id number] [place] [address] Nov, [facility] [place] [facility] [address] [facility] [id number] [place] [address] Nov, [facility] [place] [facility] [address] [id number] [place] [address] Nov, [facility] [place] [facility] [address] [id number] [place] [address] Oct, [facility] [place] [facility] [address] [id number] [place] [address] Oct, [facility] [place] [facility] [address] [facility] [id number] [place] [address] Oct, [facility] [place] [facility] [address] [id number] [place] [address] Oct, [facility] [place] [facility] [address] [id number] [place] [address] Oct, [facility] [place] [facility] [address] [id number] [place] [address] Oct, [facility] [place] [facility] [address] [facility] [id number] [place] [address] Oct, [facility] [place] [facility] [address] [id number] [place] [address] Oct, [facility] [place] [facility] [address] [id number] [place] [address] Sep, [facility] [place] [facility] [address] [id number] [place] [address] Sep, [facility] [place] [facility] [address] [id number] [place] [address] Sep, [facility] [place] [facility] [address] [id number] [place] [address] Sep, [facility] [place] [facility] [address] [id number] [place] [address] Sep, [facility] [place] [facility] [address] [id number] [place] [address] Sep, [facility] [place] [facility] [address] [id number] [place] [address] Aug, [facility] [place] [facility] [address] [id number] [place] [address] Aug, [facility] [place] [facility] [address] [id number] [place] [address] Aug, [facility] [place] [facility] [address] [id number] [place] [address] Aug, [facility] [place] [facility] [address] [id number] [place] [address] Aug, [facility] [place] [facility] [address] [id number] [place] [address] Aug, [facility] [place] [facility] [address] [id number] [place] [address] Aug, [facility] [place] [facility] [address] [id number] [place] [address] Aug, [facility] [place] [facility] [address] [id number] [place] [address] Jul, [facility] [place] [facility] [address] [id number] [place] [address] Jul, [facility] [place] [facility] [address] [id number] [place] [address] Jul, [facility] [place] [facility] [address] [id number] [place] [address] Jul, [facility] [place] [facility] [address] [id number] [place] [address] 30 Jul, 2012 [facility] [place] [facility] [address] [id number] [place] [address] 30 Jul, 2013 [facility] [place] [facility] [address] [id number] [place] [address] Jul, [facility] [place] [facility] [address] [id number] [place] [address] Jul, [facility] [place] [facility] [address] [id number] [place] [address] Jul, [facility] [place] [facility] [address] [id number] [place] [address] 14 Jun, 2013 [facility] [place] [facility] [address] [id number] [place] [address] 14 Jun, 2013 [facility] [place] [facility] [id number] [place] [address] Jun, [facility] [place] [facility] [id number] [place] [address] Jun, [facility] [place] [facility] [address] [id number] [place] [address] Jun, [facility] [place] [facility] [address] [id number] [place] [address] 07 Jun, 2013 [facility] [place] [facility] [address] [id number] [place] [address] 31 May, 2013 [facility] [place] [facility] [address] [id number] [place] [address] 31 May, 2013 [facility] [place] [facility] [address] [id number] [place] [address] 17 May, 2013 [facility] [place] [facility] [id number] [place] [address] 17 May, 2013 [facility] [place] [facility] [address] [id number] [place] [address] 14 May, 2013 [facility] [place] [facility] [address] [id number] [place] [address] 14 May, 2013 [facility] [place] [facility] [address] [id number] [place] [address] 10 May, 2012 [facility] [place] [facility] [address] [id number] [place] [address] 10 May, 2012 [facility] [place] [facility] [address] [id number] [place] [address] 07 May, 2012 [facility] [place] [facility] [address] [id number] [place] [address] 20 Sep, 2012 [facility] [place] [facility] [address] [id number] [place] [address] 19 Sep, 2012 [facility] [place] [facility] [address] [id number] [place] [address] 12 Apr, 2012 [facility] [place] [facility] [address] [id number] [place] [address] 24 Sep, 2011 [facility] [place] [facility] [address] [id number] [place] [address] 21 Sep, 2011 [facility] [place] [facility] [address] [id number] [place] [address] 21 Sep, 2011 [facility] [place] [facility] [address] [id number] [place] [address] 14 Sep, 2011 [facility] [place] [facility] [address] [id number] [place] [address] 10 Sep, 2011 [facility] [place] [facility] [address] [id number] [place] [address] 06 Sep, 2011 [facility] [place] [facility] [address] [id number] [place] [address] 04 Sep, 2011 [facility] [place] [facility] [address] [id number] [place] [address] 31 Mar, 2011 [facility] [place] [facility] [address] [id number] [place] [address] 28 Mar, 2011 [facility] [place] [facility] [address] [id number] [place] [address] 27 Mar, 2011 [facility] [place] [facility] [address] [id number] [place] [address] Mar, [facility] [place] [facility] [address] [facility] [id number] [place] [address] Mar, [facility] [place] [facility] [address] [facility] [id number] [place] [address] Mar, [facility] [place] [facility] [address] [id number] [place] [address] Feb, [facility] [place] [facility] [address] [id number] [place] [address] Feb, [facility] [place] [facility] [address] [facility] [id number] [place] [address] Feb, [facility] [place] [facility] [address] [id number] [place] [address] Jan, [facility] [place] [facility] [address] [id number] [place] [address] Jan, [facility] [place] [facility] [address] [id number] [place] [address] Jan, [facility] [place] [facility] [address] [id number] [place] [address] Jan, [facility] [place] [facility] [address] [id number] [place] [address] Jan, [facility] [place] [facility] [address] [id number] [place] [address] Jan, [facility] [place] [facility] [address] [id number] [place] [address] Jan, [facility] [place] [facility] [address] [id number] [place] [address] Jan, [facility] [place] [facility] [address] [id number] [place] [address] December, [facility] [place] [facility] [address] [id number] [place] [address] December, [facility] [place] [facility] [address] [id number] [place] [address] December, [facility] [place] [facility] [address] [id number] [place] [address] December, [facility] [place] [facility] [address] [id number] [place] [address] December, [facility] [place] [facility] [address] [id number] [place] [address] December, [facility] [place] [facility] [address] [id number] [place] [address] 13 Nov, 2011 [facility] [place] [facility] [address] [id number] [place] [address] 13 Nov, 2011 [facility] [place] [facility] [address] [id number] [place] [address] Nov, [facility] [place] [facility] [address] [id number] [place] [address] 13 Nov, 2011 [facility] [place] [facility] [address] [id number] [place] [address] Nov, [facility] [place] [facility] [address] [id number] [place] [address] Oct, [facility] [place] [facility] [address] [id number] [place] [address] Sep, [facility] [place] [facility] [address] [id number] [place] [address] Aug, [facility] [place] [facility] [address] [id number] [place] [address] Aug, [facility] [place] [facility] [address] [id number] [place] [address] Aug, [facility] [place] [facility] [address] [id number] [place] [address] Aug, [facility] [place] [facility] [address] [id number] [place] [address] Aug, [facility] [place] [facility] [address] [id number] [place] [address] Jul, [facility] [place] [facility] [address] [id number] [place] [address] Jul, [facility] [place] [facility] [address] [id number] [place] [address] 28 Jun, 2011 [facility] [place] [facility] [address] [id number] [place] [address] 04 Jun, 2011 [facility] [place] [facility] [address] [id number] [place] [address] Jun, [facility] [place] [facility] [address] [id number] [place] [address] May, [facility] [place] [facility] [address] [id number] [place] [address] May, [facility] [place] [facility] [address] [id number] [place] [address] 16 Oct, 2010 [facility] [place] [facility] [address] [id number] [place] [address] Oct, [facility] [place] [facility] [address] [id number] [place] [address] 29 Jul, 2010 [facility] [place] [facility] [address] [id number] [place] [address] 08 Jul, 2010 [facility] [place] [facility] [address] [id number] [place] [address] Jul, [facility] [place] [facility] [address] [id number] [place] [address] Jul, [facility] [place] [facility] [address] [id number] [place] [address] Jul, [facility] [place] [facility] [address] [id number] [place] [address] Jun, [facility] [place] [facility] [address] [id number] [place] [address] Jun, [facility] [place] [facility] [address] [id number] [place] [address] Jun, [facility] [place] [facility] [address] [id number] [place] [address] May, [facility] [place] [facility] [address] [id number] [place] [address] 16 Mar, 2010 IMMUNIZATIONS No Known Immunizations SOCIAL HISTORY Never Assessed REASON FOR VISIT PLAN OF CARE VITAL SIGNS Height 60 in 2013-06-05 Weight 220 lbs 2013-06-05 Temperature 96.9 degrees Fahrenheit 2013-06-05 Heart Rate 80 bpm 2013-06-05 Respiratory Rate 20 2013-06-05 Blood pressure systolic 144 mmHg 2013-06-05 Blood pressure diastolic 80 mmHg 2013-06-05 MEDICATIONS Unknown Medications RESULTS No Results PROCEDURES No Known procedures INSTRUCTIONS MEDICATIONS ADMINISTERED No Known Medications MEDICAL (GENERAL) HISTORY Type Description Date Medical History Hypertension Medical History Chronic obstructive pulmonary disease Medical History Type 2 diabetes mellitus Medical History Psychiatric disorders depression Surgical History Hysterectomy total abdominal 1996 Surgical History Orthopedic Surgery Surgical History Scleral buckle Hospitalization History No Hospitalization history informati on
--- OUTSIDE RECORDS SUMMARY | 2019-11-28 22:42 | XMS REPORT ---
Author Author Caren LYLE Organization [facility] Address [address] [place] [address] Care Team Providers Care Flight Engineer Name Role Phone LAURIE LYLE Unavailable PROBLEMS Type Condition ICD9-CM Code [id number] Code Onset Dates Condition S tatus SNOMED Code Problem COPD (chronic obstructive pulmonary disease) J44.9 Active 57107017 Problem Diabetes E11.9 Active 01682721 Problem Diabetic neuropathy E11.40 Active 743920441 Problem Arthritis M19.90 Active [id number] ALLERGIES No Information ENCOUNTERS Encounter Location Date Diagnosis [place] [address] [address] December, [facility] [address] [address] Aug, Arthritis M19.90 [facility] [address] [address] Jul, [facility] [address] [address] Jul, [facility] [address] [address] Jul, [facility] [address] [address] Jul, [facility] [address] [address] Jul, Diabetes E11.9 ; Diabetic neuropathy E11 .40 ; Arthritis M19.90 and COPD (chronic obstructive pulmonary disease) J44.9 [facility] [address] [address] Jul, [facility] [address] [address] Jun, 2014 [facility] [address] [facility] [id number] [place] [address] 23 Jun, 2014 [facility] [address] [id number] [place] [address] 17 Jun, 2014 [facility] [address] [id number] [place] [address] 10 Jun, 2014 [facility] [address] [id number] [place] [address] 15 May, 2015 [facility] [address] [facility] [id number] [place] [address] 13 May, 2015 [facility] [address] [id number] [place] [address] 07 May, 2014 [facility] [address] [id number] [place] [address] 22 Sep, 2014 [facility] [address] [id number] [place] [address] 21 Sep, 2014 [facility] [address] [id number] [place] [address] 21 Sep, 2014 [facility] [address] [id number] [place] [address] 15 Sep, 2014 [facility] [address] [id number] [place] [address] 11 Sep, 2014 [facility] [address] [id number] [place] [address] 09 Sep, 2014 [facility] [address] [id number] [place] [address] 08 Sep, 2014 [facility] [address] [id number] [place] [address] 03 Sep, 2014 [facility] [address] [id number] [place] [address] 02 Sep, 2014 [facility] [address] [id number] [place] [address] 31 Mar, 2014 [facility] [address] [place] [id number] [place] [address] Mar, [facility] [address] [address] Mar, [facility] [address] [address] Mar, [facility] [address] [address] Mar, [facility] [address] [address] Mar, Diabetes mellitus 250.00 ; COPD (chronic obstructive pulmonary disease) 496 ; Anxiety 300.00 and Arthritis 716.90 [facility] [address] [address] Feb, [facility] [address] [address] Feb, [facility] [address] [address] Feb, [facility] [address] [address] Feb, [facility] [address] [address] Jan, Seborrheic keratosis 702.19 and Nevus 21 6.9 [facility] [address] [address] Jan, [facility] [address] [address] Jan, Routine gynecological examination V72.31 ; Breast cancer screening V76.10 ; Hot flashes 627.2 ; Atypical nevi 216.9 and Constipation 564.00 [facility] [address] [address] Jan, [facility] [address] [address] December, [facility] [address] [address] 05 Dec, 2014 [facility] [address] [facility] [id number] [place] [address] 14 Nov, 2014 [facility] [address] [facility] [id number] [place] [address] 13 Nov, 2014 [facility] [address] [id number] [place] [address] 23 Oct, 2014 [facility] [address] [facility] [id number] [place] [address] 23 Oct, 2014 [facility] [address] [facility] [id number] [place] [address] 18 Oct, 2014 [facility] [address] [id number] [place] [address] 18 Oct, 2014 [facility] [address] [id number] [place] [address] 17 Oct, 2014 [facility] [address] [id number] [place] [address] 17 Oct, 2014 [facility] [address] [id number] [place] [address] 16 Oct, 2014 [facility] [address] [id number] [place] [address] 16 Oct, 2014 [facility] [address] [id number] [place] [address] 11 Oct, 2014 [facility] [address] [id number] [place] [address] Oct, [facility] [address] [facility] [id number] [place] [address] Sep, [facility] [address] [id number] [place] [address] Sep, [facility] [address] [id number] [place] [address] 19 Sep, 2014 [facility] [address] [id number] [place] [address] 18 Sep, 2014 [facility] [address] [id number] [place] [address] 18 Sep, 2014 [facility] [address] [id number] [place] [address] Sep, [facility] [address] [id number] [place] [address] Sep, [facility] [address] [id number] [place] [address] Aug, [facility] [address] [id number] [place] [address] Aug, [facility] [address] [id number] [place] [address] Aug, [facility] [address] [id number] [place] [address] Aug, [facility] [address] [id number] [place] [address] Aug, [facility] [address] [id number] [place] [address] Aug, [facility] [address] [id number] [place] [address] Jul, [facility] [address] [id number] [place] [address] Jul, [facility] [address] [id number] [place] [address] Jul, [facility] [address] [id number] [place] [address] Jul, [facility] [address] [id number] [place] [address] 08 Jul, 2014 [facility] [address] [id number] [place] [address] Jun, [facility] [address] [id number] [place] [address] Jun, [facility] [address] [id number] [place] [address] Jun, [facility] [address] [id number] [place] [address] Jun, [facility] [address] [id number] [place] [address] Jun, [facility] [address] [id number] [place] [address] Jun, [facility] [address] [id number] [place] [address] May, [facility] [address] [id number] [place] [address] May, [facility] [address] [id number] [place] [address] May, [facility] [address] [id number] [place] [address] May, [facility] [address] [id number] [place] [address] May, [facility] [address] [id number] [place] [address] May, [facility] [address] [id number] [place] [address] May, [facility] [address] [id number] [place] [address] May, [facility] [address] [id number] [place] [address] May, [facility] [address] [id number] [place] [address] Apr, 2013 [facility] [address] [id number] [place] [address] Apr, 2013 [facility] [address] [id number] [place] [address] Apr, 2013 [facility] [address] [id number] [place] [address] Apr, 2013 [facility] [address] [id number] [place] [address] Mar, [facility] [address] [id number] [place] [address] Mar, [facility] [address] [facility] [id number] [place] [address] Mar, [facility] [address] [facility] [id number] [place] [address] Mar, [facility] [address] [facility] [id number] [place] [address] Mar, [facility] [address] [facility] [id number] [place] [address] Mar, [facility] [address] [facility] [id number] [place] [address] Feb, [facility] [address] [id number] [place] [address] Feb, [facility] [address] [id number] [place] [address] Feb, [facility] [address] [facility] [id number] [place] [address] Feb, [facility] [address] [facility] [id number] [place] [address] Feb, [facility] [address] [id number] [place] [address] Feb, [facility] [address] [facility] [id number] [place] [address] Feb, [facility] [address] [facility] [id number] [place] [address] Feb, [facility] [address] [id number] [place] [address] Feb, [facility] [address] [facility] [id number] [place] [address] Feb, [facility] [address] [id number] [place] [address] Feb, [facility] [address] [id number] [place] [address] Feb, 2013 [facility] [address] [id number] [place] [address] Jan, [facility] [address] [id number] [place] [address] Jan, [facility] [address] [id number] [place] [address] Jan, [facility] [address] [facility] [id number] [place] [address] Jan, [facility] [address] [id number] [place] [address] Jan, [facility] [address] [id number] [place] [address] Jan, [facility] [address] [id number] [place] [address] Jan, [facility] [address] [id number] [place] [address] Jan, [facility] [address] [id number] [place] [address] Jan, [facility] [address] [id number] [place] [address] Jan, [facility] [address] [id number] [place] [address] Jan, [facility] [address] [id number] [place] [address] Jan, [facility] [address] [id number] [place] [address] Jan, [facility] [address] [id number] [place] [address] Jan, [facility] [address] [id number] [place] [address] Jan, [facility] [address] [id number] [place] [address] Jan, [facility] [address] [id number] [place] [address] Jan, [facility] [address] [id number] [place] [address] December, [facility] [address] [id number] [place] [address] December, [facility] [address] [id number] [place] [address] December, [facility] [address] [id number] [place] [address] December, [facility] [address] [id number] [place] [address] December, [facility] [address] [id number] [place] [address] December, [facility] [address] [id number] [place] [address] Nov, [facility] [address] [id number] [place] [address] Nov, [facility] [address] [id number] [place] [address] Nov, [facility] [address] [id number] [place] [address] Nov, [facility] [address] [id number] [place] [address] Nov, [facility] [address] [id number] [place] [address] Nov, [facility] [address] [id number] [place] [address] Nov, [facility] [address] [id number] [place] [address] Nov, [facility] [address] [id number] [place] [address] Nov, [facility] [address] [id number] [place] [address] 07 Nov, 2013 [facility] [address] [facility] [id number] [place] [address] Nov, [facility] [address] [facility] [id number] [place] [address] Nov, [facility] [address] [id number] [place] [address] Nov, [facility] [address] [facility] [id number] [place] [address] Nov, [facility] [address] [facility] [id number] [place] [address] Nov, [facility] [address] [id number] [place] [address] Nov, [facility] [address] [id number] [place] [address] Oct, [facility] [address] [id number] [place] [address] Oct, [facility] [address] [facility] [id number] [place] [address] Oct, [facility] [address] [id number] [place] [address] Oct, [facility] [address] [id number] [place] [address] Oct, [facility] [address] [id number] [place] [address] Oct, [facility] [address] [facility] [id number] [place] [address] Oct, [facility] [address] [id number] [place] [address] Oct, [facility] [address] [id number] [place] [address] Sep, [facility] [address] [id number] [place] [address] Sep, [facility] [address] [id number] [place] [address] Sep, [facility] [address] [id number] [place] [address] Sep, [facility] [address] [id number] [place] [address] Sep, [facility] [address] [id number] [place] [address] Sep, [facility] [address] [id number] [place] [address] Aug, [facility] [address] [id number] [place] [address] Aug, [facility] [address] [id number] [place] [address] Aug, [facility] [address] [id number] [place] [address] Aug, [facility] [address] [id number] [place] [address] Aug, [facility] [address] [id number] [place] [address] Aug, [facility] [address] [id number] [place] [address] Aug, [facility] [address] [id number] [place] [address] Aug, [facility] [address] [id number] [place] [address] Jul, [facility] [address] [id number] [place] [address] Jul, [facility] [address] [id number] [place] [address] Jul, [facility] [address] [id number] [place] [address] Jul, [facility] [address] [id number] [place] [address] 30 Jul, 2012 [facility] [address] [id number] [place] [address] 30 Jul, 2013 [facility] [address] [id number] [place] [address] Jul, [facility] [address] [id number] [place] [address] Jul, [facility] [address] [id number] [place] [address] Jul, [facility] [address] [id number] [place] [address] 14 Jun, 2013 [facility] [address] [id number] [place] [address] 14 Jun, 2013 [facility] [id number] [place] [address] Jun, [facility] [id number] [place] [address] Jun, [facility] [address] [id number] [place] [address] Jun, [facility] [address] [id number] [place] [address] 07 Jun, 2013 [facility] [address] [id number] [place] [address] 31 May, 2013 [facility] [address] [id number] [place] [address] 31 May, 2013 [facility] [address] [id number] [place] [address] 17 May, 2013 [facility] [id number] [place] [address] 17 May, 2013 [facility] [address] [id number] [place] [address] 14 May, 2013 [facility] [address] [id number] [place] [address] 14 May, 2013 [facility] [address] [id number] [place] [address] 10 May, 2012 [facility] [address] [id number] [place] [address] 10 May, 2012 [facility] [address] [id number] [place] [address] 07 May, 2012 [facility] [address] [id number] [place] [address] 20 Sep, 2012 [facility] [address] [id number] [place] [address] 19 Sep, 2012 [facility] [address] [id number] [place] [address] 12 Apr, 2012 [facility] [address] [id number] [place] [address] 24 Sep, 2011 [facility] [address] [id number] [place] [address] 21 Sep, 2011 [facility] [address] [id number] [place] [address] 21 Sep, 2011 [facility] [address] [id number] [place] [address] 14 Sep, 2011 [facility] [address] [id number] [place] [address] 10 Sep, 2011 [facility] [address] [id number] [place] [address] 06 Sep, 2011 [facility] [address] [id number] [place] [address] 04 Sep, 2011 [facility] [address] [id number] [place] [address] 31 Mar, 2011 [facility] [address] [id number] [place] [address] 28 Mar, 2011 [facility] [address] [id number] [place] [address] 27 Mar, 2011 [facility] [address] [id number] [place] [address] Mar, [facility] [address] [facility] [id number] [place] [address] Mar, [facility] [address] [facility] [id number] [place] [address] Mar, [facility] [address] [id number] [place] [address] Feb, [facility] [address] [id number] [place] [address] Feb, [facility] [address] [facility] [id number] [place] [address] Feb, [facility] [address] [id number] [place] [address] Jan, [facility] [address] [id number] [place] [address] Jan, [facility] [address] [id number] [place] [address] Jan, [facility] [address] [id number] [place] [address] Jan, [facility] [address] [id number] [place] [address] Jan, [facility] [address] [id number] [place] [address] Jan, [facility] [address] [id number] [place] [address] Jan, [facility] [facility] [address] [id number] [place] [address] Jan, [facility] [address] [id number] [place] [address] December, [facility] [address] [id number] [place] [address] December, [facility] [address] [id number] [place] [address] December, [facility] [address] [id number] [place] [address] December, [facility] [id number] [place] [address] December, [facility] [address] [id number] [place] [address] December, [facility] [address] [id number] [place] [address] 13 Nov, 2011 [facility] [address] [id number] [place] [address] 13 Nov, 2011 [facility] [address] [id number] [place] [address] Nov, [facility] [address] [id number] [place] [address] 13 Nov, 2011 [facility] [address] [id number] [place] [address] Nov, [facility] [address] [id number] [place] [address] Oct, [facility] [address] [id number] [place] [address] Sep, [facility] [address] [id number] [place] [address] Aug, [facility] [address] [id number] [place] [address] Aug, [facility] [address] [id number] [place] [address] Aug, [facility] [address] [id number] [place] [address] Aug, [facility] [address] [id number] [place] [address] Aug, [facility] [address] [id number] [place] [address] Jul, [facility] [address] [id number] [place] [address] Jul, [facility] [address] [id number] [place] [address] 28 Jun, 2011 [facility] [address] [id number] [place] [address] 04 Jun, 2011 [facility] [address] [id number] [place] [address] Jun, [facility] [address] [id number] [place] [address] May, [facility] [address] [id number] [place] [address] May, [facility] [address] [id number] [place] [address] 16 Oct, 2010 [facility] [address] [id number] [place] [address] Oct, [facility] [address] [id number] [place] [address] 29 Jul, 2010 [facility] [address] [id number] [place] [address] 08 Jul, 2010 [facility] [address] [id number] [place] [address] Jul, [facility] [address] [id number] [place] [address] Jul, [facility] [address] [id number] [place] [address] Jul, [facility] [address] [id number] [place] [address] Jun, [facility] [address] [id number] [place] [address] Jun, [facility] [address] [id number] [place] [address] Jun, [facility] [address] [id number] [place] [address] May, [facility] [address] [id number] [place] [address] 16 Mar, 2010 IMMUNIZATIONS No Known Immunizations SOCIAL HISTORY Never Assessed REASON FOR VISIT PLAN OF CARE VITAL SIGNS Height 60 in 2013-10-30 Weight 225 lbs 2013-10-30 Temperature 98.7 degrees Fahrenheit 2013-10-30 Heart Rate 82 bpm 2013-10-30 Respiratory Rate 22 2013-10-30 Blood pressure systolic 134 mmHg 2013-10-30 Blood pressure diastolic 70 mmHg 2013-10-30 MEDICATIONS Unknown Medications RESULTS No Results PROCEDURES [...]
--- OUTSIDE RECORDS SUMMARY | 2019-11-28 22:42 | XMS REPORT ---
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 Name Role Phone LAURIE LYLE Unavailable PROBLEMS Type Condition ICD9-CM Code DNO44-FA Code Onset Dates Condition S tatus SNOMED Code Problem COPD (chronic obstructive pulmonary disease) J44.9 Active 01875019 Problem Diabetes E11.9 Active 20233454 Problem Diabetic neuropathy E11.40 Active 075180849 Problem Arthritis M19.90 Active 5321327 ALLERGIES No Information ENCOUNTERS Encounter Location Date Diagnosis [place] [address] [address] December, [facility] [address] [address] Aug, Arthritis M19.90 [facility] [address] [address] Jul, [facility] [address] [address] Jul, [facility] [address] [address] Jul, [facility] [address] [address] Jul, [facility] [address] [address] Jul, Diabetes E11.9 ; Diabetic neuropathy E11 .40 ; Arthritis M19.90 and COPD (chronic obstructive pulmonary disease) J44.9 [facility] [address] [address] Jul, [facility] [address] [address] Jun, 2014 [facility] [address] [facility] [id number] [place] [address] 23 Jun, 2014 [facility] [address] [id number] [place] [address] 17 Jun, 2014 [facility] [address] [id number] [place] [address] 10 Jun, 2014 [facility] [address] [id number] [place] [address] 15 May, 2015 [facility] [address] [facility] [id number] [place] [address] 13 May, 2015 [facility] [address] [id number] [place] [address] 07 May, 2014 [facility] [address] [id number] [place] [address] 22 Sep, 2014 [facility] [address] [id number] [place] [address] 21 Sep, 2014 [facility] [address] [id number] [place] [address] 21 Sep, 2014 [facility] [address] [id number] [place] [address] 15 Sep, 2014 [facility] [address] [id number] [place] [address] 11 Sep, 2014 [facility] [address] [id number] [place] [address] 09 Sep, 2014 [facility] [address] [id number] [place] [address] 08 Sep, 2014 [facility] [address] [id number] [place] [address] 03 Sep, 2014 [facility] [address] [id number] [place] [address] 02 Sep, 2014 [facility] [address] [id number] [place] [address] 31 Mar, 2014 [facility] [address] [place] [id number] [place] [address] Mar, [facility] [address] [address] Mar, [facility] [address] [address] Mar, [facility] [address] [address] Mar, [facility] [address] [address] Mar, Diabetes mellitus 250.00 ; COPD (chronic obstructive pulmonary disease) 496 ; Anxiety 300.00 and Arthritis 716.90 [facility] [address] [address] Feb, [facility] [address] [address] Feb, [facility] [address] [address] Feb, [facility] [address] [address] Feb, [facility] [address] [address] Jan, Seborrheic keratosis 702.19 and Nevus 21 6.9 [facility] [address] [address] Jan, [facility] [address] [address] Jan, Routine gynecological examination V72.31 ; Breast cancer screening V76.10 ; Hot flashes 627.2 ; Atypical nevi 216.9 and Constipation 564.00 [facility] [address] [address] Jan, [facility] [address] [address] December, [facility] [address] [address] 05 Dec, 2014 [facility] [address] [facility] [id number] [facility] [place] [address] 14 Nov, 2014 [facility] [address] [facility] [id number] [facility] [place] [address] 13 Nov, 2014 [facility] [address] [id number] [place] [address] 23 Oct, 2014 [facility] [address] [facility] [id number] [place] [address] 23 Oct, 2014 [facility] [address] [facility] [id number] [place] [address] 18 Oct, 2014 [facility] [address] [id number] [place] [address] 18 Oct, 2014 [facility] [address] [id number] [place] [address] 17 Oct, 2014 [facility] [address] [id number] [place] [address] 17 Oct, 2014 [facility] [address] [id number] [place] [address] 16 Oct, 2014 [facility] [address] [id number] [place] [address] 16 Oct, 2014 [facility] [address] [id number] [place] [address] 11 Oct, 2014 [facility] [address] [id number] [place] [address] Oct, [facility] [address] [facility] [id number] [place] [address] Sep, [facility] [address] [id number] [place] [address] Sep, [facility] [address] [id number] [place] [address] 19 Sep, 2014 [facility] [address] [id number] [place] [address] 18 Sep, 2014 [facility] [address] [id number] [place] [address] 18 Sep, 2014 [facility] [address] [id number] [place] [address] Sep, [facility] [address] [id number] [place] [address] Sep, [facility] [address] [id number] [place] [address] Aug, [facility] [address] [id number] [place] [address] Aug, [facility] [address] [id number] [place] [address] Aug, [facility] [address] [id number] [place] [address] Aug, [facility] [address] [id number] [place] [address] Aug, [facility] [address] [id number] [place] [address] Aug, [facility] [address] [id number] [place] [address] Jul, [facility] [address] [id number] [place] [address] Jul, [facility] [address] [id number] [place] [address] Jul, [facility] [address] [id number] [place] [address] Jul, [facility] [address] [id number] [place] [address] 08 Jul, 2014 [facility] [address] [id number] [place] [address] Jun, [facility] [address] [id number] [place] [address] Jun, [facility] [address] [id number] [place] [address] Jun, [facility] [address] [id number] [place] [address] Jun, [facility] [address] [id number] [place] [address] Jun, [facility] [address] [id number] [place] [address] Jun, [facility] [address] [id number] [place] [address] May, [facility] [address] [id number] [place] [address] May, [facility] [address] [id number] [place] [address] May, [facility] [address] [id number] [place] [address] May, [facility] [address] [id number] [place] [address] May, [facility] [address] [id number] [place] [address] May, [facility] [address] [id number] [place] [address] May, [facility] [address] [id number] [place] [address] May, [facility] [address] [id number] [place] [address] May, [facility] [address] [id number] [place] [address] Apr, 2013 [facility] [address] [id number] [place] [address] Apr, 2013 [facility] [address] [id number] [place] [address] Apr, 2013 [facility] [address] [id number] [place] [address] Apr, 2013 [facility] [address] [id number] [facility] [place] [address] Mar, [facility] [address] [id number] [facility] [place] [address] Mar, [facility] [address] [facility] [id number] [facility] [place] [address] Mar, [facility] [address] [facility] [id number] [facility] [place] [address] Mar, [facility] [address] [facility] [id number] [facility] [place] [address] Mar, [facility] [address] [facility] [id number] [facility] [place] [address] Mar, [facility] [address] [facility] [id number] [place] [address] Feb, [facility] [address] [id number] [place] [address] Feb, [facility] [address] [id number] [place] [address] Feb, [facility] [address] [facility] [id number] [facility] [place] [address] Feb, [facility] [address] [facility] [id number] [place] [address] Feb, [facility] [address] [id number] [place] [address] Feb, [facility] [address] [facility] [id number] [place] [address] Feb, [facility] [address] [facility] [id number] [place] [address] Feb, [facility] [address] [id number] [place] [address] Feb, [facility] [address] [facility] [id number] [place] [address] Feb, [facility] [address] [id number] [place] [address] Feb, [facility] [address] [id number] [place] [address] Feb, 2013 [facility] [address] [id number] [place] [address] Jan, [facility] [address] [id number] [place] [address] Jan, [facility] [address] [id number] [place] [address] Jan, [facility] [address] [facility] [id number] [place] [address] Jan, [facility] [address] [id number] [place] [address] Jan, [facility] [address] [id number] [place] [address] Jan, [facility] [address] [id number] [place] [address] Jan, [facility] [address] [id number] [place] [address] Jan, [facility] [address] [id number] [place] [address] Jan, [facility] [address] [id number] [place] [address] Jan, [facility] [address] [id number] [place] [address] Jan, [facility] [address] [id number] [place] [address] Jan, [facility] [address] [id number] [place] [address] Jan, [facility] [address] [id number] [place] [address] Jan, [facility] [address] [id number] [place] [address] Jan, [facility] [address] [id number] [place] [address] Jan, [facility] [address] [id number] [facility] [place] [address] Jan, [facility] [address] [id number] [facility] [place] [address] December, [facility] [address] [id number] [facility] [place] [address] December, [facility] [address] [id number] [facility] [place] [address] December, [facility] [address] [id number] [facility] [place] [address] December, [facility] [address] [id number] [place] [address] December, [facility] [address] [id number] [place] [address] December, [facility] [address] [id number] [place] [address] Nov, [facility] [address] [id number] [facility] [place] [address] Nov, [facility] [address] [id number] [place] [address] Nov, [facility] [address] [id number] [place] [address] Nov, [facility] [address] [id number] [place] [address] Nov, [facility] [address] [id number] [place] [address] Nov, [facility] [address] [id number] [place] [address] Nov, [facility] [address] [id number] [place] [address] Nov, [facility] [address] [id number] [place] [address] Nov, [facility] [address] [id number] [facility] [place] [address] 07 Nov, 2013 [facility] [address] [facility] [id number] [place] [address] Nov, [facility] [address] [facility] [id number] [place] [address] Nov, [facility] [address] [id number] [place] [address] Nov, [facility] [address] [facility] [id number] [place] [address] Nov, [facility] [address] [facility] [id number] [place] [address] Nov, [facility] [address] [id number] [place] [address] Nov, [facility] [address] [id number] [place] [address] Oct, [facility] [address] [id number] [place] [address] Oct, [facility] [address] [facility] [id number] [place] [address] Oct, [facility] [address] [id number] [place] [address] Oct, [facility] [address] [id number] [place] [address] Oct, [facility] [address] [id number] [place] [address] Oct, [facility] [address] [facility] [id number] [place] [address] Oct, [facility] [address] [id number] [place] [address] Oct, [facility] [address] [id number] [place] [address] Sep, [facility] [address] [id number] [place] [address] Sep, [facility] [address] [id number] [place] [address] Sep, [facility] [address] [id number] [place] [address] Sep, [facility] [address] [id number] [place] [address] Sep, [facility] [address] [id number] [place] [address] Sep, [facility] [address] [id number] [place] [address] Aug, [facility] [address] [id number] [place] [address] Aug, [facility] [address] [id number] [place] [address] Aug, [facility] [address] [id number] [place] [address] Aug, [facility] [address] [id number] [place] [address] Aug, [facility] [address] [id number] [place] [address] Aug, [facility] [address] [id number] [place] [address] Aug, [facility] [address] [id number] [place] [address] Aug, [facility] [address] [id number] [place] [address] Jul, [facility] [address] [id number] [place] [address] Jul, [facility] [address] [id number] [place] [address] Jul, [facility] [address] [id number] [place] [address] Jul, [facility] [address] [id number] [place] [address] 30 Jul, 2012 [facility] [address] [id number] [place] [address] 30 Jul, 2013 [facility] [address] [id number] [place] [address] Jul, [facility] [address] [id number] [place] [address] Jul, [facility] [address] [id number] [place] [address] Jul, [facility] [address] [id number] [place] [address] 14 Jun, 2013 [facility] [address] [id number] [place] [address] 14 Jun, 2013 [facility] [id number] [place] [address] Jun, [facility] [id number] [place] [address] Jun, [facility] [address] [id number] [place] [address] Jun, [facility] [address] [id number] [place] [address] 07 Jun, 2013 [facility] [address] [id number] [place] [address] 31 May, 2013 [facility] [address] [id number] [place] [address] 31 May, 2013 [facility] [place] [facility] [address] [id number] [place] [address] 17 May, 2013 [facility] [place] [facility] [id number] [place] [address] 17 May, 2013 [facility] [place] [facility] [address] [id number] [place] [address] 14 May, 2013 [facility] [place] [facility] [address] [id number] [place] [address] 14 May, 2013 [facility] [place] [facility] [address] [id number] [place] [address] 10 May, 2012 [facility] [place] [facility] [address] [id number] [place] [address] 10 May, 2012 [facility] [place] [facility] [address] [id number] [place] [address] 07 May, 2012 [facility] [place] [facility] [address] [id number] [place] [address] 20 Sep, 2012 [facility] [place] [facility] [address] [id number] [place] [address] 19 Sep, 2012 [facility] [place] [facility] [address] [id number] [place] [address] 12 Apr, 2012 [facility] [place] [facility] [address] [id number] [place] [address] 24 Sep, 2011 [facility] [place] [facility] [address] [id number] [place] [address] 21 Sep, 2011 [facility] [place] [facility] [address] [id number] [place] [address] 21 Sep, 2011 [facility] [place] [facility] [address] [id number] [place] [address] 14 Sep, 2011 [facility] [place] [facility] [address] [id number] [place] [address] 10 Sep, 2011 [facility] [place] [facility] [address] [id number] [place] [address] 06 Sep, 2011 [facility] [place] [facility] [address] [id number] [place] [address] 04 Sep, 2011 [facility] [place] [facility] [address] [id number] [place] [address] 31 Mar, 2011 [facility] [place] [facility] [address] [id number] [place] [address] 28 Mar, 2011 [facility] [place] [facility] [address] [id number] [place] [address] 27 Mar, 2011 [facility] [place] [facility] [address] [id number] [place] [address] Mar, [facility] [place] [facility] [address] [facility] [id number] [place] [address] Mar, [facility] [place] [facility] [address] [facility] [id number] [facility] [place] [address] Mar, [facility] [place] [facility] [address] [id number] [place] [address] Feb, [facility] [place] [facility] [address] [id number] [place] [address] Feb, [facility] [place] [facility] [address] [facility] [id number] [facility] [place] [address] Feb, [facility] [place] [facility] [address] [id number] [place] [address] Jan, [facility] [place] [facility] [address] [id number] [place] [address] Jan, [facility] [place] [facility] [address] [id number] [place] [address] Jan, [facility] [place] [facility] [address] [id number] [place] [address] Jan, [facility] [place] [facility] [address] [id number] [place] [address] Jan, [facility] [place] [facility] [address] [id number] [place] [address] Jan, [facility] [place] [facility] [address] [id number] [place] [address] Jan, [facility] [place] [facility] [address] [id number] [place] [address] Jan, [facility] [place] [facility] [address] [id number] [place] [address] December, [facility] [place] [facility] [address] [id number] [place] [address] December, [facility] [place] [facility] [address] [id number] [place] [address] December, [facility] [place] [facility] [address] [id number] [place] [address] December, [facility] [place] [facility] [address] [id number] [place] [address] December, [facility] [place] [facility] [address] [id number] [place] [address] December, [facility] [place] [facility] [address] [id number] [place] [address] 13 Nov, 2011 [facility] [place] [facility] [address] [id number] [place] [address] 13 Nov, 2011 [facility] [place] [facility] [address] [id number] [place] [address] Nov, [facility] [place] [facility] [address] [id number] [place] [address] 13 Nov, 2011 [facility] [place] [facility] [address] [id number] [place] [address] Nov, [facility] [place] [facility] [address] [id number] [place] [address] Oct, [facility] [place] [facility] [address] [id number] [place] [address] Sep, [facility] [place] [facility] [address] [id number] [place] [address] Aug, [facility] [facility] [address] [id number] [place] [address] Aug, [facility] [address] [id number] [place] [address] Aug, [facility] [address] [id number] [place] [address] Aug, [facility] [address] [id number] [place] [address] Aug, [facility] [address] [id number] [place] [address] Jul, [facility] [address] [id number] [place] [address] Jul, [facility] [address] [id number] [place] [address] 28 Jun, 2011 [facility] [address] [id number] [place] [address] 04 Jun, 2011 [facility] [address] [id number] [place] [address] Jun, [facility] [address] [id number] [place] [address] May, [facility] [address] [id number] [place] [address] May, [facility] [address] [id number] [place] [address] 16 Oct, 2010 [facility] [address] [id number] [place] [address] Oct, [facility] [address] [id number] [place] [address] 29 Jul, 2010 [facility] [address] [id number] [place] [address] 08 Jul, 2010 [facility] [address] [id number] [place] [address] Jul, [facility] [address] [id number] [place] [address] Jul, [facility] [address] [id number] [place] [address] Jul, [facility] [address] [id number] [place] [address] Jun, [facility] [address] [id number] [place] [address] Jun, [facility] [address] [id number] [place] [address] Jun, [facility] [address] [id number] [place] [address] May, [facility] [address] [id number] [place] [address] 16 Mar, 2010 IMMUNIZATIONS No Known Immunizations [...]
--- OUTSIDE RECORDS SUMMARY | 2019-11-28 22:42 | XMS REPORT ---
Author Author Caren MILNER Organization [facility] Address [address] [place] [address] Care Team Providers Care Fisher Net Name Role Phone YULISA MILNER Unavailable PROBLEMS Type Condition ICD9-CM Code AHM40-UJ Code Onset Dates Condition S tatus SNOMED Code Problem COPD (chronic obstructive pulmonary disease) J44.9 Active 37081531 Problem Diabetes E11.9 Active 91433027 Problem Diabetic neuropathy E11.40 Active 620387665 Problem Arthritis M19.90 Active 9327478 ALLERGIES No Information ENCOUNTERS Encounter Location Date Diagnosis [place] [address] [address] December, [facility] [address] [address] Aug, Arthritis M19.90 [facility] [address] [address] Jul, [facility] [address] [address] Jul, [facility] [address] [address] Jul, [facility] [address] [address] Jul, [facility] [address] [address] Jul, Diabetes E11.9 ; Diabetic neuropathy E11 .40 ; Arthritis M19.90 and COPD (chronic obstructive pulmonary disease) J44.9 [facility] [address] [address] Jul, [facility] [address] [address] Jun, [facility] [address] [id number] [place] [address] 23 Jun, 2015 [facility] [address] [id number] [place] [address] 17 Jun, 2014 [facility] [address] [id number] [place] [address] 10 Jun, 2014 [facility] [address] [id number] [place] [address] 15 May, 2015 [facility] [address] [id number] [place] [address] 13 May, 2015 [facility] [address] [id number] [place] [address] 07 May, 2015 [facility] [address] [id number] [place] [address] 22 Sep, 2014 [facility] [address] [id number] [place] [address] 21 Sep, 2014 [facility] [address] [id number] [place] [address] 21 Sep, 2014 [facility] [address] [id number] [place] [address] 15 Sep, 2014 [facility] [address] [id number] [place] [address] 11 Sep, 2014 [facility] [address] [id number] [place] [address] 09 Sep, 2014 [facility] [address] [id number] [place] [address] 08 Sep, 2014 [facility] [address] [id number] [place] [address] 03 Sep, 2014 [facility] [address] [id number] [place] [address] 02 Sep, 2014 [facility] [address] [id number] [place] [address] 31 Mar, 2014 [facility] [address] [place] [id number] [place] [address] Mar, [facility] [address] [address] Mar, [facility] [address] [address] Mar, [facility] [address] [address] Mar, [facility] [address] [address] Mar, Diabetes mellitus 250.00 ; COPD (chronic obstructive pulmonary disease) 496 ; Anxiety 300.00 and Arthritis 716.90 [facility] [address] [address] Feb, [facility] [address] [address] Feb, [facility] [address] [address] Feb, [facility] [address] [address] Feb, [facility] [address] [address] Jan, Seborrheic keratosis 702.19 and Nevus 21 6.9 [facility] [address] [place] [address] Jan, [facility] [address] [address] Jan, Routine gynecological examination V72.31 ; Breast cancer screening V76.10 ; Hot flashes 627.2 ; Atypical nevi 216.9 and Constipation 564.00 [facility] [address] [place] [id number] [place] [address] Jan, [facility] [address] [address] December, [facility] [address] [place] [address] [place] [address] 05 Dec, 2014 [facility] [address] [facility] [id number] [place] [address] 14 Nov, 2014 [facility] [address] [id number] [place] [address] 13 Nov, 2014 [facility] [address] [id number] [place] [address] 23 Oct, 2014 [facility] [address] [id number] [place] [address] 23 Oct, 2014 [facility] [address] [id number] [place] [address] 18 Oct, 2014 [facility] [address] [id number] [place] [address] 18 Oct, 2014 [facility] [address] [id number] [place] [address] 17 Oct, 2014 [facility] [address] [id number] [place] [address] 17 Oct, 2014 [facility] [address] [id number] [place] [address] 16 Oct, 2014 [facility] [address] [id number] [place] [address] 16 Oct, 2014 [facility] [address] [id number] [place] [address] 11 Oct, 2014 [facility] [address] [id number] [place] [address] 11 Oct, 2014 [facility] [address] [id number] [place] [address] Sep, [facility] [address] [id number] [place] [address] 27 Sep, 2014 [facility] [address] [id number] [place] [address] 19 Sep, 2014 [facility] [address] [id number] [place] [address] 18 Sep, 2014 [facility] [address] [id number] [place] [address] Sep, [facility] [address] [id number] [place] [address] Sep, [facility] [address] [id number] [place] [address] Sep, [facility] [address] [id number] [place] [address] Aug, [facility] [address] [id number] [place] [address] Aug, [facility] [address] [id number] [place] [address] Aug, [facility] [address] [id number] [place] [address] Aug, [facility] [address] [id number] [place] [address] Aug, [facility] [address] [id number] [place] [address] Aug, [facility] [address] [id number] [place] [address] Jul, [facility] [address] [id number] [place] [address] Jul, [facility] [address] [id number] [place] [address] Jul, [facility] [address] [id number] [place] [address] Jul, [facility] [address] [id number] [place] [address] 08 Jul, 2014 [facility] [address] [id number] [place] [address] Jun, [facility] [address] [id number] [place] [address] Jun, [facility] [address] [id number] [place] [address] Jun, [facility] [address] [id number] [place] [address] Jun, [facility] [address] [id number] [place] [address] Jun, [facility] [address] [id number] [place] [address] Jun, [facility] [address] [id number] [place] [address] May, [facility] [address] [id number] [place] [address] May, [facility] [address] [id number] [place] [address] May, [facility] [address] [id number] [place] [address] May, [facility] [address] [id number] [place] [address] May, [facility] [address] [id number] [place] [address] May, [facility] [address] [id number] [place] [address] May, [facility] [address] [id number] [place] [address] May, [facility] [address] [id number] [place] [address] May, [facility] [address] [id number] [place] [address] Apr, [facility] [address] [id number] [place] [address] Apr, [facility] [address] [id number] [place] [address] Apr, [facility] [address] [id number] [place] [address] Apr, [facility] [address] [id number] [place] [address] Mar, [facility] [address] [facility] [id number] [place] [address] Mar, [facility] [address] [facility] [id number] [place] [address] Mar, [facility] [address] [id number] [place] [address] Mar, [facility] [address] [facility] [id number] [place] [address] Mar, [facility] [address] [facility] [id number] [place] [address] Mar, [facility] [address] [id number] [place] [address] Feb, [facility] [address] [id number] [place] [address] Feb, [facility] [address] [id number] [place] [address] Feb, [facility] [address] [facility] [id number] [place] [address] Feb, [facility] [address] [id number] [place] [address] Feb, [facility] [address] [id number] [place] [address] Feb, [facility] [address] [id number] [place] [address] Feb, 2013 [facility] [address] [facility] [id number] [place] [address] Feb, [facility] [address] [id number] [place] [address] Feb, [facility] [address] [id number] [place] [address] Feb, 2013 [facility] [address] [id number] [place] [address] Feb, 2013 [facility] [address] [facility] [id number] [place] [address] 08 Feb, 2013 [facility] [address] [facility] [id number] [place] [address] Jan, [facility] [address] [id number] [place] [address] Jan, [facility] [address] [facility] [id number] [place] [address] Jan, [facility] [address] [facility] [id number] [place] [address] Jan, [facility] [address] [id number] [place] [address] Jan, [facility] [address] [id number] [place] [address] Jan, [facility] [address] [id number] [place] [address] Jan, [facility] [address] [id number] [place] [address] Jan, [facility] [address] [id number] [place] [address] Jan, [facility] [address] [id number] [place] [address] Jan, [facility] [address] [id number] [place] [address] Jan, [facility] [address] [id number] [place] [address] Jan, [facility] [address] [id number] [place] [address] Jan, [facility] [address] [id number] [place] [address] Jan, [facility] [address] [id number] [place] [address] Jan, [facility] [address] [id number] [place] [address] Jan, [facility] [address] [id number] [place] [address] Jan, [facility] [address] [facility] [id number] [place] [address] December, [facility] [address] [id number] [place] [address] December, [facility] [address] [id number] [place] [address] December, [facility] [address] [id number] [place] [address] December, [facility] [address] [id number] [place] [address] December, [facility] [address] [id number] [place] [address] December, [facility] [address] [id number] [place] [address] Nov, [facility] [address] [id number] [place] [address] Nov, [facility] [address] [id number] [place] [address] Nov, [facility] [address] [id number] [place] [address] Nov, [facility] [address] [id number] [place] [address] Nov, [facility] [address] [facility] [id number] [place] [address] Nov, [facility] [address] [id number] [place] [address] Nov, [facility] [address] [id number] [place] [address] Nov, [facility] [address] [id number] [place] [address] Nov, [facility] [address] [facility] [id number] [place] [address] Nov, [facility] [address] [id number] [place] [address] Nov, [facility] [address] [id number] [place] [address] Nov, [facility] [address] [id number] [place] [address] Nov, [facility] [address] [id number] [place] [address] Nov, [facility] [address] [id number] [place] [address] Nov, [facility] [address] [id number] [place] [address] Nov, [facility] [address] [id number] [place] [address] Oct, [facility] [address] [id number] [place] [address] Oct, [facility] [address] [id number] [place] [address] Oct, [facility] [address] [id number] [place] [address] Oct, [facility] [address] [id number] [place] [address] Oct, [facility] [address] [id number] [place] [address] Oct, [facility] [address] [id number] [place] [address] 10 Oct, 2013 [facility] [address] [id number] [place] [address] 10 Oct, 2013 [facility] [address] [id number] [place] [address] Sep, [facility] [address] [id number] [place] [address] Sep, [facility] [address] [id number] [place] [address] Sep, [facility] [address] [id number] [place] [address] Sep, [facility] [address] [id number] [place] [address] Sep, [facility] [address] [id number] [place] [address] Sep, [facility] [address] [id number] [place] [address] Aug, [facility] [address] [id number] [place] [address] Aug, [facility] [address] [id number] [place] [address] Aug, [facility] [address] [id number] [place] [address] Aug, [facility] [address] [id number] [place] [address] Aug, [facility] [address] [id number] [place] [address] Aug, [facility] [address] [id number] [place] [address] Aug, [facility] [address] [id number] [place] [address] Aug, [facility] [address] [id number] [place] [address] Jul, [facility] [address] [id number] [place] [address] Jul, [facility] [address] [id number] [place] [address] Jul, [facility] [address] [id number] [place] [address] Jul, [facility] [address] [id number] [place] [address] 30 Jul, 2012 [facility] [address] [id number] [place] [address] 30 Jul, 2012 [facility] [address] [id number] [place] [address] 03 Jul, 2013 [facility] [address] [id number] [place] [address] 03 Jul, 2013 [facility] [address] [id number] [place] [address] 02 Jul, 2013 [facility] [address] [id number] [place] [address] 14 Jun, 2013 [facility] [address] [id number] [place] [address] 14 Jun, 2013 [facility] [address] [id number] [place] [address] Jun, [facility] [address] [id number] [place] [address] 13 Jun, 2013 [facility] [address] [id number] [place] [address] 07 Jun, 2013 [facility] [address] [id number] [place] [address] 07 Jun, 2013 [facility] [address] [id number] [place] [address] 31 May, 2013 [facility] [address] [id number] [place] [address] 31 May, 2013 [facility] [address] [id number] [place] [address] 17 May, 2013 [facility] [address] [id number] [place] [address] 17 May, 2013 [facility] [address] [id number] [place] [address] 14 May, 2013 [facility] [address] [id number] [place] [address] 14 May, 2013 [facility] [address] [id number] [place] [address] 10 May, 2012 [facility] [address] [id number] [place] [address] 10 May, 2012 [facility] [address] [id number] [place] [address] 07 May, 2012 [facility] [address] [id number] [place] [address] 20 Sep, 2012 [facility] [address] [id number] [place] [address] 19 Sep, 2012 [facility] [address] [id number] [place] [address] 12 Apr, 2012 [facility] [address] [id number] [place] [address] 24 Sep, 2011 [facility] [address] [id number] [place] [address] 21 Sep, 2011 [facility] [address] [id number] [place] [address] 21 Sep, 2011 [facility] [address] [id number] [place] [address] 14 Sep, 2011 [facility] [address] [id number] [place] [address] 10 Sep, 2011 [facility] [address] [id number] [place] [address] 06 Sep, 2011 [facility] [address] [id number] [place] [address] 04 Apr, 2011 [facility] [address] [id number] [place] [address] 31 Mar, 2012 [facility] [address] [id number] [place] [address] 28 Mar, 2011 [facility] [address] [id number] [place] [address] 27 Mar, 2011 [facility] [address] [id number] [place] [address] Mar, [facility] [address] [facility] [id number] [place] [address] Mar, [facility] [address] [id number] [place] [address] Mar, [facility] [address] [id number] [place] [address] Feb, [facility] [address] [id number] [place] [address] Feb, [facility] [address] [facility] [id number] [place] [address] Feb, [facility] [address] [id number] [place] [address] Jan, [facility] [address] [id number] [place] [address] Jan, [facility] [address] [id number] [place] [address] Jan, [facility] [address] [id number] [place] [address] Jan, [facility] [address] [id number] [place] [address] Jan, [facility] [address] [id number] [place] [address] Jan, [facility] [address] [id number] [place] [address] Jan, [facility] [address] [id number] [place] [address] Jan, [facility] [address] [id number] [place] [address] December, [facility] [address] [id number] [place] [address] December, [facility] [address] [id number] [place] [address] December, [facility] [address] [id number] [place] [address] December, [facility] [address] [id number] [place] [address] December, [facility] [address] [id number] [place] [address] December, [facility] [address] [id number] [place] [address] 13 Nov, 2011 [facility] [address] [id number] [place] [address] 13 Nov, 2011 [facility] [address] [id number] [place] [address] 13 Nov, 2011 [facility] [address] [id number] [place] [address] 13 Nov, 2011 [facility] [address] [id number] [place] [address] Nov, [facility] [address] [id number] [place] [address] Oct, [facility] [address] [id number] [place] [address] Sep, [facility] [address] [id number] [place] [address] Aug, [facility] [address] [id number] [place] [address] Aug, [facility] [address] [id number] [place] [address] Aug, [facility] [address] [id number] [place] [address] Aug, [facility] [address] [id number] [place] [address] Aug, [facility] [address] [id number] [place] [address] Jul, [facility] [address] [id number] [place] [address] Jul, [facility] [address] [id number] [place] [address] 28 Jun, 2011 [facility] [address] [id number] [place] [address] 04 Jun, 2011 [facility] [address] [id number] [place] [address] Jun, [facility] [address] [id number] [place] [address] 18 May, 2011 [facility] [address] [id number] [place] [address] 17 May, 2011 [facility] [address] [id number] [place] [address] 16 Oct, 2010 [facility] [address] [id number] [place] [address] Oct, [facility] [address] [id number] [place] [address] 29 Jul, 2010 [facility] [address] [id number] [place] [address] 08 Jul, 2010 [facility] [address] [id number] [place] [address] Jul, [facility] [address] [id number] [place] [address] 06 Jul, 2010 [facility] [address] [id number] [place] [address] Jul, [facility] [address] [id number] [place] [address] Jun, [facility] [address] [id number] [place] [address] Jun, [facility] [address] [id number] [place] [address] Jun, [facility] [address] [id number] [place] [address] May, [facility] [address] [id number] [place] [address] Mar, IMMUNIZATIONS No Known Immunizations SOCIAL HISTORY Never Assessed REASON FOR VISIT PLAN OF CARE VITAL SIGNS Height 60 in 2013-10-18 Weight 217.25 lbs 2013-10-18 Temperature 97.4 degrees Fahrenheit 2013-10-18 Heart Rate 84 bpm 2013-10-18 Respiratory Rate 18 2013-10-18 Blood pressure systolic 139 mmHg 2013-10-18 Blood pressure diastolic 84 mmHg 2013-10-18 MEDICATIONS Unknown Medications RESULTS No Results PROCEDURES Procedure Date Ordered Result Body Site MEASURE BLOOD OXYGEN LEVEL Oct 18, 2013 INSTRUCTIONS MEDICATIONS ADMINISTERED No Known Medications MEDICAL (GENERAL) HISTORY Type Description Date Medical History Hypertension Medical History Chronic obstructive pulmonary disease Medical History Type 2 diabetes mellitus Medical History Psychiatric disorders depression Surgical History Hysterectomy total abdominal 1996 Surgical History Orthopedic Surgery Surgical History Scleral buckle Hospitalization History No Hospitalization history informati on
--- OUTSIDE RECORDS SUMMARY | 2019-11-28 22:43 | XMS REPORT ---
Author Author Caren LYLE Organization [facility] Address [address] [place] [address] Care Team Providers Care Vp Sales Name Role Phone LAURIE LYLE Unavailable PROBLEMS Type Condition ICD9-CM Code PRP38-UL Code Onset Dates Condition S tatus SNOMED Code Problem COPD (chronic obstructive pulmonary disease) J44.9 Active 76433283 Problem Diabetes E11.9 Active 66542033 Problem Diabetic neuropathy E11.40 Active 398016820 Problem Arthritis M19.90 Active 7321006 ALLERGIES No Information ENCOUNTERS Encounter Location Date Diagnosis [place] [address] [address] December, [facility] [address] [address] Aug, Arthritis M19.90 [facility] [address] [address] Jul, [facility] [address] [address] Jul, [facility] [address] [address] Jul, [facility] [address] [address] Jul, [facility] [address] [address] Jul, Diabetes E11.9 ; Diabetic neuropathy E11 .40 ; Arthritis M19.90 and COPD (chronic obstructive pulmonary disease) J44.9 [facility] [address] [address] Jul, [facility] [address] [address] Jun, 2014 [facility] [address] [facility] [id number] [place] [address] 23 Jun, 2014 [facility] [address] [id number] [place] [address] 17 Jun, 2014 [facility] [address] [id number] [place] [address] 10 Jun, 2014 [facility] [address] [id number] [place] [address] 15 May, 2015 [facility] [address] [facility] [id number] [place] [address] 13 May, 2015 [facility] [address] [id number] [place] [address] 07 May, 2014 [facility] [address] [id number] [place] [address] 22 Sep, 2014 [facility] [address] [id number] [place] [address] 21 Sep, 2014 [facility] [address] [id number] [place] [address] 21 Sep, 2014 [facility] [address] [id number] [place] [address] 15 Sep, 2014 [facility] [address] [id number] [place] [address] 11 Sep, 2014 [facility] [address] [id number] [place] [address] 09 Sep, 2014 [facility] [address] [id number] [place] [address] 08 Sep, 2014 [facility] [address] [id number] [place] [address] 03 Sep, 2014 [facility] [address] [id number] [place] [address] 02 Sep, 2014 [facility] [address] [id number] [place] [address] 31 Mar, 2014 [facility] [address] [place] [id number] [place] [address] Mar, [facility] [address] [address] Mar, [facility] [address] [address] Mar, [facility] [address] [address] Mar, [facility] [address] [address] Mar, Diabetes mellitus 250.00 ; COPD (chronic obstructive pulmonary disease) 496 ; Anxiety 300.00 and Arthritis 716.90 [facility] [address] [address] Feb, [facility] [address] [address] Feb, [facility] [address] [address] Feb, [facility] [address] [address] Feb, [facility] [address] [address] Jan, Seborrheic keratosis 702.19 and Nevus 21 6.9 [facility] [address] [address] Jan, [facility] [address] [address] Jan, Routine gynecological examination V72.31 ; Breast cancer screening V76.10 ; Hot flashes 627.2 ; Atypical nevi 216.9 and Constipation 564.00 [facility] [address] [address] Jan, [facility] [address] [address] December, [facility] [address] [address] 05 Dec, 2014 [facility] [address] [facility] [id number] [facility] [place] [address] 14 Nov, 2014 [facility] [address] [facility] [id number] [facility] [place] [address] 13 Nov, 2014 [facility] [address] [id number] [place] [address] 23 Oct, 2014 [facility] [address] [facility] [id number] [place] [address] 23 Oct, 2014 [facility] [address] [facility] [id number] [place] [address] 18 Oct, 2014 [facility] [address] [id number] [place] [address] 18 Oct, 2014 [facility] [address] [id number] [place] [address] 17 Oct, 2014 [facility] [address] [id number] [place] [address] 17 Oct, 2014 [facility] [address] [id number] [place] [address] 16 Oct, 2014 [facility] [address] [id number] [place] [address] 16 Oct, 2014 [facility] [address] [id number] [place] [address] 11 Oct, 2014 [facility] [address] [id number] [place] [address] Oct, [facility] [address] [facility] [id number] [place] [address] Sep, [facility] [address] [id number] [place] [address] Sep, [facility] [address] [id number] [place] [address] 19 Sep, 2014 [facility] [address] [id number] [place] [address] 18 Sep, 2014 [facility] [address] [id number] [place] [address] 18 Sep, 2014 [facility] [address] [id number] [place] [address] Sep, [facility] [address] [id number] [place] [address] Sep, [facility] [address] [id number] [place] [address] Aug, [facility] [address] [id number] [place] [address] Aug, [facility] [address] [id number] [place] [address] Aug, [facility] [address] [id number] [place] [address] Aug, [facility] [address] [id number] [place] [address] Aug, [facility] [address] [id number] [place] [address] Aug, [facility] [address] [id number] [place] [address] Jul, [facility] [address] [id number] [place] [address] Jul, [facility] [address] [id number] [place] [address] Jul, [facility] [address] [id number] [place] [address] Jul, [facility] [address] [id number] [place] [address] 08 Jul, 2014 [facility] [address] [id number] [place] [address] Jun, [facility] [address] [id number] [place] [address] Jun, [facility] [address] [id number] [place] [address] Jun, [facility] [address] [id number] [place] [address] Jun, [facility] [address] [id number] [place] [address] Jun, [facility] [address] [id number] [place] [address] Jun, [facility] [address] [id number] [place] [address] May, [facility] [address] [id number] [place] [address] May, [facility] [address] [id number] [place] [address] May, [facility] [address] [id number] [place] [address] May, [facility] [address] [id number] [place] [address] May, [facility] [address] [id number] [place] [address] May, [facility] [address] [id number] [place] [address] May, [facility] [address] [id number] [place] [address] May, [facility] [address] [id number] [place] [address] May, [facility] [address] [id number] [place] [address] Apr, 2013 [facility] [address] [id number] [place] [address] Apr, 2013 [facility] [address] [id number] [place] [address] Apr, 2013 [facility] [address] [id number] [place] [address] Apr, 2013 [facility] [address] [id number] [facility] [place] [address] Mar, [facility] [address] [id number] [facility] [place] [address] Mar, [facility] [address] [facility] [id number] [facility] [place] [address] Mar, [facility] [address] [facility] [id number] [facility] [place] [address] Mar, [facility] [address] [facility] [id number] [facility] [place] [address] Mar, [facility] [address] [facility] [id number] [facility] [place] [address] Mar, [facility] [address] [facility] [id number] [place] [address] Feb, [facility] [address] [id number] [place] [address] Feb, [facility] [address] [id number] [place] [address] Feb, [facility] [address] [facility] [id number] [facility] [place] [address] Feb, [facility] [address] [facility] [id number] [place] [address] Feb, [facility] [address] [id number] [place] [address] Feb, [facility] [address] [facility] [id number] [place] [address] Feb, [facility] [address] [facility] [id number] [place] [address] Feb, [facility] [address] [id number] [place] [address] Feb, [facility] [address] [facility] [id number] [place] [address] Feb, [facility] [address] [id number] [place] [address] Feb, [facility] [address] [id number] [place] [address] Feb, 2013 [facility] [address] [id number] [place] [address] Jan, [facility] [address] [id number] [place] [address] Jan, [facility] [address] [id number] [place] [address] Jan, [facility] [address] [facility] [id number] [place] [address] Jan, [facility] [address] [id number] [place] [address] Jan, [facility] [address] [id number] [place] [address] Jan, [facility] [address] [id number] [place] [address] Jan, [facility] [address] [id number] [place] [address] Jan, [facility] [address] [id number] [place] [address] Jan, [facility] [address] [id number] [place] [address] Jan, [facility] [address] [id number] [place] [address] Jan, [facility] [address] [id number] [place] [address] Jan, [facility] [address] [id number] [place] [address] Jan, [facility] [address] [id number] [place] [address] Jan, [facility] [address] [id number] [place] [address] Jan, [facility] [address] [id number] [place] [address] Jan, [facility] [address] [id number] [facility] [place] [address] Jan, [facility] [address] [id number] [facility] [place] [address] December, [facility] [address] [id number] [facility] [place] [address] December, [facility] [address] [id number] [facility] [place] [address] December, [facility] [address] [id number] [facility] [place] [address] December, [facility] [address] [id number] [place] [address] December, [facility] [address] [id number] [place] [address] December, [facility] [address] [id number] [place] [address] Nov, [facility] [address] [id number] [facility] [place] [address] Nov, [facility] [address] [id number] [place] [address] Nov, [facility] [address] [id number] [place] [address] Nov, [facility] [address] [id number] [place] [address] Nov, [facility] [address] [id number] [place] [address] Nov, [facility] [address] [id number] [place] [address] Nov, [facility] [address] [id number] [place] [address] Nov, [facility] [address] [id number] [place] [address] Nov, [facility] [address] [id number] [facility] [place] [address] 07 Nov, 2013 [facility] [address] [facility] [id number] [place] [address] Nov, [facility] [address] [facility] [id number] [place] [address] Nov, [facility] [address] [id number] [place] [address] Nov, [facility] [address] [facility] [id number] [place] [address] Nov, [facility] [address] [facility] [id number] [place] [address] Nov, [facility] [address] [id number] [place] [address] Nov, [facility] [address] [id number] [place] [address] Oct, [facility] [address] [id number] [place] [address] Oct, [facility] [address] [facility] [id number] [place] [address] Oct, [facility] [address] [id number] [place] [address] Oct, [facility] [address] [id number] [place] [address] Oct, [facility] [address] [id number] [place] [address] Oct, [facility] [address] [facility] [id number] [place] [address] Oct, [facility] [address] [id number] [place] [address] Oct, [facility] [address] [id number] [place] [address] Sep, [facility] [address] [id number] [place] [address] Sep, [facility] [address] [id number] [place] [address] Sep, [facility] [address] [id number] [place] [address] Sep, [facility] [address] [id number] [place] [address] Sep, [facility] [address] [id number] [place] [address] Sep, [facility] [address] [id number] [place] [address] Aug, [facility] [address] [id number] [place] [address] Aug, [facility] [address] [id number] [place] [address] Aug, [facility] [address] [id number] [place] [address] Aug, [facility] [address] [id number] [place] [address] Aug, [facility] [address] [id number] [place] [address] Aug, [facility] [address] [id number] [place] [address] Aug, [facility] [address] [id number] [place] [address] Aug, [facility] [address] [id number] [place] [address] Jul, [facility] [address] [id number] [place] [address] Jul, [facility] [address] [id number] [place] [address] Jul, [facility] [address] [id number] [place] [address] Jul, [facility] [address] [id number] [place] [address] 30 Jul, 2012 [facility] [address] [id number] [place] [address] 30 Jul, 2013 [facility] [place] [facility] [address] [id number] [place] [address] Jul, [facility] [place] [facility] [address] [id number] [place] [address] Jul, [facility] [place] [facility] [address] [id number] [place] [address] Jul, [facility] [place] [facility] [address] [id number] [place] [address] 14 Jun, 2013 [facility] [place] [facility] [address] [id number] [place] [address] 14 Jun, 2013 [facility] [place] [facility] [id number] [place] [address] Jun, [facility] [place] [facility] [id number] [place] [address] Jun, [facility] [place] [facility] [address] [id number] [place] [address] Jun, [facility] [place] [facility] [address] [id number] [place] [address] 07 Jun, 2013 [facility] [place] [facility] [address] [id number] [place] [address] 31 May, 2013 [facility] [place] [facility] [address] [id number] [place] [address] 31 May, 2013 [facility] [place] [facility] [address] [id number] [place] [address] 17 May, 2013 [facility] [place] [facility] [id number] [place] [address] 17 May, 2013 [facility] [place] [facility] [address] [id number] [place] [address] 14 May, 2013 [facility] [place] [facility] [address] [id number] [place] [address] 14 May, 2013 [facility] [place] [facility] [address] [id number] [place] [address] 10 May, 2012 [facility] [place] [facility] [address] [id number] [place] [address] 10 May, 2012 [facility] [place] [facility] [address] [id number] [place] [address] 07 May, 2012 [facility] [place] [facility] [address] [id number] [place] [address] 20 Sep, 2012 [facility] [place] [facility] [address] [id number] [place] [address] 19 Sep, 2012 [facility] [place] [facility] [address] [id number] [place] [address] 12 Apr, 2012 [facility] [place] [facility] [address] [id number] [place] [address] 24 Sep, 2011 [facility] [place] [facility] [address] [id number] [place] [address] 21 Sep, 2011 [facility] [place] [facility] [address] [id number] [place] [address] 21 Sep, 2011 [facility] [place] [facility] [address] [id number] [place] [address] 14 Sep, 2011 [facility] [place] [facility] [address] [id number] [place] [address] 10 Sep, 2011 [facility] [place] [facility] [address] [id number] [place] [address] 06 Sep, 2011 [facility] [place] [facility] [address] [id number] [place] [address] 04 Sep, 2011 [facility] [place] [facility] [address] [id number] [place] [address] 31 Mar, 2011 [facility] [place] [facility] [address] [id number] [place] [address] 28 Mar, 2011 [facility] [place] [facility] [address] [id number] [place] [address] 27 Mar, 2011 [facility] [place] [facility] [address] [id number] [place] [address] Mar, [facility] [place] [facility] [address] [facility] [id number] [place] [address] Mar, [facility] [place] [facility] [address] [facility] [id number] [facility] [place] [address] Mar, [facility] [place] [facility] [address] [id number] [place] [address] Feb, [facility] [place] [facility] [address] [id number] [place] [address] Feb, [facility] [place] [facility] [address] [facility] [id number] [facility] [place] [address] Feb, [facility] [place] [facility] [address] [id number] [place] [address] Jan, [facility] [place] [facility] [address] [id number] [place] [address] Jan, [facility] [place] [facility] [address] [id number] [place] [address] Jan, [facility] [place] [facility] [address] [id number] [place] [address] Jan, [facility] [place] [facility] [address] [id number] [place] [address] Jan, [facility] [place] [facility] [address] [id number] [place] [address] Jan, [facility] [place] [facility] [address] [id number] [place] [address] Jan, [facility] [place] [facility] [address] [id number] [place] [address] Jan, [facility] [place] [facility] [address] [id number] [place] [address] December, [facility] [place] [facility] [address] [id number] [place] [address] December, [facility] [place] [facility] [address] [id number] [place] [address] December, [facility] [place] [facility] [address] [id number] [place] [address] December, [facility] [place] [facility] [address] [id number] [place] [address] December, [facility] [place] [facility] [address] [id number] [place] [address] December, [facility] [place] [facility] [address] [id number] [place] [address] 13 Nov, 2011 [facility] [place] [facility] [address] [id number] [place] [address] 13 Nov, 2011 [facility] [place] [facility] [address] [id number] [place] [address] Nov, [facility] [place] [facility] [address] [id number] [place] [address] 13 Nov, 2011 [facility] [place] [facility] [address] [id number] [place] [address] Nov, [facility] [place] [facility] [address] [id number] [place] [address] Oct, [facility] [place] [facility] [address] [id number] [place] [address] Sep, [facility] [place] [facility] [address] [address] [id number] [place] [address] Aug, [facility] [address] [id number] [place] [address] Aug, [facility] [address] [id number] [place] [address] Aug, [facility] [address] [id number] [place] [address] Aug, [facility] [address] [id number] [place] [address] Aug, [facility] [address] [id number] [place] [address] Jul, [facility] [address] [id number] [place] [address] Jul, [facility] [address] [id number] [place] [address] 28 Jun, 2011 [facility] [address] [id number] [place] [address] 04 Jun, 2011 [facility] [address] [id number] [place] [address] Jun, [facility] [address] [id number] [place] [address] May, [facility] [address] [id number] [place] [address] May, [facility] [address] [id number] [place] [address] 16 Oct, 2010 [facility] [address] [id number] [place] [address] Oct, [facility] [address] [id number] [place] [address] 29 Jul, 2010 [facility] [address] [id number] [place] [address] 08 Jul, 2010 [facility] [address] [id number] [place] [address] Jul, [facility] [address] [id number] [place] [address] Jul, [facility] [address] [id number] [place] [address] Jul, [facility] [address] [id number] [place] [address] Jun, [facility] [address] [id number] [place] [address] Jun, [facility] [address] [id number] [place] [address] Jun, [facility] [address] [id number] [place] [address] May, [facility] [address] [id number] [place] [address] 16 Mar, 2010 IMMUNIZATIONS No Known Immunizations [...]
--- OUTSIDE RECORDS SUMMARY | 2019-11-28 22:43 | XMS REPORT ---
Author Author Caren MILNER Organization [facility] Address [address] [place] [address] Care Team Providers Care Market Manager Name Role Phone YULISA MILNER Unavailable PROBLEMS Type Condition ICD9-CM Code [id number] Code Onset Dates Condition S tatus SNOMED Code Problem COPD (chronic obstructive pulmonary disease) J44.9 Active 80656646 Problem Diabetes E11.9 Active 41461056 Problem Diabetic neuropathy E11.40 Active 334463639 Problem Arthritis M19.90 Active [id number] ALLERGIES No Information ENCOUNTERS Encounter Location Date Diagnosis [place] [address] [address] December, [facility] [address] [address] Aug, Arthritis M19.90 [facility] [address] [address] Jul, [facility] [address] [address] Jul, [facility] [address] [address] Jul, [facility] [address] [address] Jul, [facility] [address] [address] Jul, Diabetes E11.9 ; Diabetic neuropathy E11 .40 ; Arthritis M19.90 and COPD (chronic obstructive pulmonary disease) J44.9 [facility] [address] [address] Jul, [facility] [address] [address] Jun, [facility] [address] [id number] [place] [address] 23 Jun, 2015 [facility] [address] [id number] [place] [address] 17 Jun, 2014 [facility] [address] [id number] [place] [address] 10 Jun, 2014 [facility] [address] [id number] [place] [address] 15 May, 2015 [facility] [address] [id number] [place] [address] 13 May, 2015 [facility] [address] [id number] [place] [address] 07 May, 2015 [facility] [address] [id number] [place] [address] 22 Sep, 2014 [facility] [address] [id number] [place] [address] 21 Sep, 2014 [facility] [address] [id number] [place] [address] 21 Sep, 2014 [facility] [address] [id number] [place] [address] 15 Sep, 2014 [facility] [address] [id number] [place] [address] 11 Sep, 2014 [facility] [address] [id number] [place] [address] 09 Sep, 2014 [facility] [address] [id number] [place] [address] 08 Sep, 2014 [facility] [address] [id number] [place] [address] 03 Sep, 2014 [facility] [address] [id number] [place] [address] 02 Sep, 2014 [facility] [address] [id number] [place] [address] 31 Mar, 2014 [facility] [address] [place] [id number] [place] [address] Mar, [facility] [address] [address] Mar, [facility] [address] [address] Mar, [facility] [address] [address] Mar, [facility] [address] [address] Mar, Diabetes mellitus 250.00 ; COPD (chronic obstructive pulmonary disease) 496 ; Anxiety 300.00 and Arthritis 716.90 [facility] [address] [address] Feb, [facility] [address] [address] Feb, [facility] [address] [address] Feb, [facility] [address] [address] Feb, [facility] [address] [address] Jan, Seborrheic keratosis 702.19 and Nevus 21 6.9 [facility] [address] [place] [address] Jan, [facility] [address] [address] Jan, Routine gynecological examination V72.31 ; Breast cancer screening V76.10 ; Hot flashes 627.2 ; Atypical nevi 216.9 and Constipation 564.00 [facility] [address] [place] [id number] [place] [address] Jan, [facility] [address] [address] December, [facility] [address] [place] [address] [place] [address] 05 Dec, 2014 [facility] [address] [facility] [id number] [place] [address] 14 Nov, 2014 [facility] [address] [id number] [place] [address] 13 Nov, 2014 [facility] [address] [id number] [place] [address] 23 Oct, 2014 [facility] [address] [id number] [place] [address] 23 Oct, 2014 [facility] [address] [id number] [place] [address] 18 Oct, 2014 [facility] [address] [id number] [place] [address] 18 Oct, 2014 [facility] [address] [id number] [place] [address] 17 Oct, 2014 [facility] [address] [id number] [place] [address] 17 Oct, 2014 [facility] [address] [id number] [place] [address] 16 Oct, 2014 [facility] [address] [id number] [place] [address] 16 Oct, 2014 [facility] [address] [id number] [place] [address] 11 Oct, 2014 [facility] [address] [id number] [place] [address] 11 Oct, 2014 [facility] [address] [id number] [place] [address] Sep, [facility] [address] [id number] [place] [address] 27 Sep, 2014 [facility] [address] [id number] [place] [address] 19 Sep, 2014 [facility] [address] [id number] [place] [address] 18 Sep, 2014 [facility] [address] [id number] [place] [address] Sep, [facility] [address] [id number] [place] [address] Sep, [facility] [address] [id number] [place] [address] Sep, [facility] [address] [id number] [place] [address] Aug, [facility] [address] [id number] [place] [address] Aug, [facility] [address] [id number] [place] [address] Aug, [facility] [address] [id number] [place] [address] Aug, [facility] [address] [id number] [place] [address] Aug, [facility] [address] [id number] [place] [address] Aug, [facility] [address] [id number] [place] [address] Jul, [facility] [address] [id number] [place] [address] Jul, [facility] [address] [id number] [place] [address] Jul, [facility] [address] [id number] [place] [address] Jul, [facility] [address] [id number] [place] [address] 08 Jul, 2014 [facility] [address] [id number] [place] [address] Jun, [facility] [address] [id number] [place] [address] Jun, [facility] [address] [id number] [place] [address] Jun, [facility] [address] [id number] [place] [address] Jun, [facility] [address] [id number] [place] [address] Jun, [facility] [address] [id number] [place] [address] Jun, [facility] [address] [id number] [place] [address] May, [facility] [address] [id number] [place] [address] May, [facility] [address] [id number] [place] [address] May, [facility] [address] [id number] [place] [address] May, [facility] [address] [id number] [place] [address] May, [facility] [address] [id number] [place] [address] May, [facility] [address] [id number] [place] [address] May, [facility] [address] [id number] [place] [address] May, [facility] [address] [id number] [place] [address] May, [facility] [address] [id number] [place] [address] Apr, [facility] [address] [id number] [place] [address] Apr, [facility] [address] [id number] [place] [address] Apr, [facility] [address] [id number] [place] [address] Apr, [facility] [address] [id number] [facility] [place] [address] Mar, [facility] [address] [facility] [id number] [place] [address] Mar, [facility] [address] [facility] [id number] [place] [address] Mar, [facility] [address] [id number] [place] [address] Mar, [facility] [address] [facility] [id number] [place] [address] Mar, [facility] [address] [facility] [id number] [place] [address] Mar, [facility] [address] [id number] [place] [address] Feb, [facility] [address] [id number] [place] [address] Feb, [facility] [address] [id number] [place] [address] Feb, [facility] [address] [facility] [id number] [place] [address] Feb, [facility] [address] [id number] [place] [address] Feb, [facility] [address] [id number] [place] [address] Feb, [facility] [address] [id number] [place] [address] Feb, 2013 [facility] [address] [facility] [id number] [place] [address] Feb, [facility] [address] [id number] [place] [address] Feb, [facility] [address] [id number] [place] [address] Feb, 2013 [facility] [address] [id number] [place] [address] Feb, 2013 [facility] [address] [facility] [id number] [place] [address] 08 Feb, 2013 [facility] [address] [facility] [id number] [facility] [place] [address] Jan, [facility] [address] [id number] [place] [address] Jan, [facility] [address] [facility] [id number] [facility] [place] [address] Jan, [facility] [address] [facility] [id number] [facility] [address] Jan, [facility] [address] [id number] [place] [address] Jan, [facility] [address] [id number] [place] [address] Jan, [facility] [address] [id number] [place] [address] Jan, [facility] [address] [id number] [place] [address] Jan, [facility] [address] [id number] [place] [address] Jan, [facility] [address] [id number] [place] [address] Jan, [facility] [address] [id number] [place] [address] Jan, [facility] [address] [id number] [place] [address] Jan, [facility] [address] [id number] [place] [address] Jan, [facility] [address] [id number] [place] [address] Jan, [facility] [address] [id number] [place] [address] Jan, [facility] [address] [id number] [place] [address] Jan, [facility] [address] [id number] [facility] [place] [address] Jan, [facility] [address] [facility] [id number] [place] [address] December, [facility] [address] [id number] [place] [address] December, [facility] [address] [id number] [place] [address] December, [facility] [address] [id number] [place] [address] December, [facility] [address] [id number] [place] [address] December, [facility] [address] [id number] [place] [address] December, [facility] [address] [id number] [place] [address] Nov, [facility] [address] [id number] [place] [address] Nov, [facility] [address] [id number] [place] [address] Nov, [facility] [address] [id number] [place] [address] Nov, [facility] [address] [id number] [place] [address] Nov, [facility] [address] [facility] [id number] [place] [address] Nov, [facility] [address] [id number] [place] [address] Nov, [facility] [address] [id number] [place] [address] Nov, [facility] [address] [id number] [place] [address] Nov, [facility] [address] [facility] [id number] [place] [address] Nov, [facility] [address] [id number] [place] [address] Nov, [facility] [address] [id number] [place] [address] Nov, [facility] [address] [id number] [place] [address] Nov, [facility] [address] [id number] [place] [address] Nov, [facility] [address] [id number] [place] [address] Nov, [facility] [address] [id number] [place] [address] Nov, [facility] [address] [id number] [place] [address] Oct, [facility] [address] [id number] [place] [address] Oct, [facility] [address] [id number] [place] [address] Oct, [facility] [address] [id number] [place] [address] Oct, [facility] [address] [id number] [place] [address] Oct, [facility] [address] [id number] [place] [address] Oct, [facility] [address] [id number] [place] [address] 10 Oct, 2013 [facility] [address] [id number] [place] [address] 10 Oct, 2013 [facility] [address] [id number] [place] [address] Sep, [facility] [address] [id number] [place] [address] Sep, [facility] [address] [id number] [place] [address] Sep, [facility] [address] [id number] [place] [address] Sep, [facility] [address] [id number] [place] [address] Sep, [facility] [address] [id number] [place] [address] Sep, [facility] [address] [id number] [place] [address] Aug, [facility] [address] [id number] [place] [address] Aug, [facility] [address] [id number] [place] [address] Aug, [facility] [address] [id number] [place] [address] Aug, [facility] [address] [id number] [place] [address] Aug, [facility] [address] [id number] [place] [address] Aug, [facility] [address] [id number] [place] [address] Aug, [facility] [address] [id number] [place] [address] Aug, [facility] [address] [id number] [place] [address] Jul, [facility] [address] [id number] [place] [address] Jul, [facility] [address] [id number] [place] [address] Jul, [facility] [address] [id number] [place] [address] Jul, [facility] [address] [id number] [place] [address] 30 Jul, 2012 [facility] [address] [id number] [place] [address] 30 Jul, 2012 [facility] [address] [id number] [place] [address] 03 Jul, 2013 [facility] [address] [id number] [place] [address] 03 Jul, 2013 [facility] [address] [id number] [place] [address] 02 Jul, 2013 [facility] [address] [id number] [place] [address] 14 Jun, 2013 [facility] [address] [id number] [place] [address] 14 Jun, 2013 [facility] [address] [id number] [place] [address] Jun, [facility] [address] [id number] [place] [address] 13 Jun, 2013 [facility] [address] [id number] [place] [address] 07 Jun, 2013 [facility] [address] [id number] [place] [address] 07 Jun, 2013 [facility] [address] [id number] [place] [address] 31 May, 2013 [facility] [address] [id number] [place] [address] 31 May, 2013 [facility] [address] [id number] [place] [address] 17 May, 2013 [facility] [address] [id number] [place] [address] 17 May, 2013 [facility] [address] [id number] [place] [address] 14 May, 2013 [facility] [address] [id number] [place] [address] 14 May, 2013 [facility] [address] [id number] [place] [address] 10 May, 2012 [facility] [address] [id number] [place] [address] 10 May, 2012 [facility] [address] [id number] [place] [address] 07 May, 2012 [facility] [address] [id number] [place] [address] 20 Sep, 2012 [facility] [address] [id number] [place] [address] 19 Sep, 2012 [facility] [address] [id number] [place] [address] 12 Apr, 2012 [facility] [address] [id number] [place] [address] 24 Sep, 2011 [facility] [address] [id number] [place] [address] 21 Sep, 2011 [facility] [address] [id number] [place] [address] 21 Sep, 2011 [facility] [address] [id number] [place] [address] 14 Sep, 2011 [facility] [address] [id number] [place] [address] 10 Sep, 2011 [facility] [address] [id number] [place] [address] 06 Sep, 2011 [facility] [address] [id number] [place] [address] 04 Apr, 2011 [facility] [address] [id number] [place] [address] 31 Mar, 2012 [facility] [address] [id number] [place] [address] 28 Mar, 2011 [facility] [address] [id number] [place] [address] 27 Mar, 2011 [facility] [address] [id number] [place] [address] Mar, [facility] [address] [facility] [id number] [facility] [address] Mar, [facility] [address] [id number] [facility] [place] [address] Mar, [facility] [address] [id number] [facility] [place] [address] Feb, [facility] [address] [id number] [facility] [place] [address] Feb, [facility] [address] [facility] [id number] [facility] [address] Feb, [facility] [address] [id number] [facility] [place] [address] Jan, [facility] [address] [id number] [facility] [place] [address] Jan, [facility] [address] [id number] [place] [address] Jan, [facility] [address] [id number] [facility] [place] [address] Jan, [facility] [address] [id number] [place] [address] Jan, [facility] [address] [id number] [place] [address] Jan, [facility] [address] [id number] [place] [address] Jan, [facility] [address] [id number] [place] [address] Jan, [facility] [address] [id number] [place] [address] December, [facility] [address] [id number] [place] [address] December, [facility] [address] [id number] [place] [address] December, [facility] [address] [id number] [place] [address] December, [facility] [address] [id number] [place] [address] December, [facility] [address] [id number] [place] [address] December, [facility] [address] [id number] [place] [address] 13 Nov, 2011 [facility] [address] [id number] [place] [address] 13 Nov, 2011 [facility] [address] [id number] [place] [address] 13 Nov, 2011 [facility] [address] [id number] [place] [address] 13 Nov, 2011 [facility] [address] [id number] [place] [address] Nov, [facility] [address] [id number] [place] [address] Oct, [facility] [address] [id number] [place] [address] Sep, [facility] [address] [id number] [place] [address] Aug, [facility] [address] [id number] [place] [address] Aug, [facility] [address] [id number] [place] [address] Aug, [facility] [address] [id number] [place] [address] Aug, [facility] [address] [id number] [place] [address] Aug, [facility] [address] [id number] [place] [address] Jul, [facility] [address] [id number] [place] [address] Jul, [facility] [address] [id number] [place] [address] 28 Jun, 2011 [facility] [address] [id number] [place] [address] 04 Jun, 2011 [facility] [address] [id number] [place] [address] Jun, [facility] [address] [id number] [place] [address] 18 May, 2011 [facility] [address] [id number] [place] [address] 17 May, 2011 [facility] [address] [id number] [place] [address] 16 Oct, 2010 [facility] [address] [id number] [place] [address] Oct, [facility] [address] [id number] [place] [address] 29 Jul, 2010 [facility] [address] [id number] [place] [address] 08 Jul, 2010 [facility] [address] [id number] [place] [address] Jul, [facility] [address] [id number] [place] [address] 06 Jul, 2010 [facility] [address] [id number] [place] [address] Jul, [facility] [address] [id number] [place] [address] Jun, [facility] [address] [id number] [place] [address] Jun, [facility] [address] [id number] [place] [address] Jun, [facility] [address] [id number] [place] [address] May, [facility] [address] [id number] [place] [address] Mar, IMMUNIZATIONS No Known Immunizations SOCIAL HISTORY Never Assessed REASON FOR VISIT PLAN OF CARE VITAL SIGNS Height 60 in 2013-10-17 Weight 219.4 lbs 2013-10-17 Temperature 95.7 degrees Fahrenheit 2013-10-17 Heart Rate 70 bpm 2013-10-17 Respiratory Rate 18 2013-10-17 Blood pressure systolic 130 mmHg 2013-10-17 Blood pressure diastolic 82 mmHg 2013-10-17 MEDICATIONS Unknown Medications RESULTS No Results PROCEDURES Procedure Date Ordered Result Body Site THER/PROPH/DIAG INJ, SC/IM Oct 17, 2013 INJ METHYLPRDNISLN SODIM TO 125 MG Oct 17, 2013 MEASURE BLOOD OXYGEN LEVEL Oct 17, 2013 INSTRUCTIONS MEDICATIONS ADMINISTERED No Known Medications MEDICAL (GENERAL) HISTORY Type Description Date Medical History Hypertension Medical History Chronic obstructive pulmonary disease Medical History Type 2 diabetes mellitus Medical History Psychiatric disorders depression Surgical History Hysterectomy total abdominal 1996 Surgical History Orthopedic Surgery Surgical History Scleral buckle Hospitalization History No Hospitalization history informati on
--- OUTSIDE RECORDS SUMMARY | 2019-11-28 22:43 | XMS REPORT ---
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 Name Role Phone LAURIE LYLE Unavailable PROBLEMS Type Condition ICD9-CM Code TPC63-QE Code Onset Dates Condition S tatus SNOMED Code Problem COPD (chronic obstructive pulmonary disease) J44.9 Active 55678125 Problem Diabetes E11.9 Active 24439543 Problem Diabetic neuropathy E11.40 Active 920378388 Problem Arthritis M19.90 Active [id number] ALLERGIES No Information ENCOUNTERS Encounter Location Date Diagnosis [place] [address] [address] December, [facility] [address] [address] Aug, Arthritis M19.90 [facility] [address] [address] Jul, [facility] [address] [address] Jul, [facility] [address] [address] Jul, [facility] [address] [address] Jul, [facility] [address] [address] Jul, Diabetes E11.9 ; Diabetic neuropathy E11 .40 ; Arthritis M19.90 and COPD (chronic obstructive pulmonary disease) J44.9 [facility] [address] [address] Jul, [facility] [address] [address] Jun, 2014 [facility] [address] [facility] [id number] [place] [address] 23 Jun, 2014 [facility] [address] [id number] [place] [address] 17 Jun, 2014 [facility] [address] [id number] [place] [address] 10 Jun, 2014 [facility] [address] [id number] [place] [address] 15 May, 2015 [facility] [address] [facility] [id number] [place] [address] 13 May, 2015 [facility] [address] [id number] [place] [address] 07 May, 2014 [facility] [address] [id number] [place] [address] 22 Sep, 2014 [facility] [address] [id number] [place] [address] 21 Sep, 2014 [facility] [address] [id number] [place] [address] 21 Sep, 2014 [facility] [address] [id number] [place] [address] 15 Sep, 2014 [facility] [address] [id number] [place] [address] 11 Sep, 2014 [facility] [address] [id number] [place] [address] 09 Sep, 2014 [facility] [address] [id number] [place] [address] 08 Sep, 2014 [facility] [address] [id number] [place] [address] 03 Sep, 2014 [facility] [address] [id number] [place] [address] 02 Sep, 2014 [facility] [address] [id number] [place] [address] 31 Mar, 2014 [facility] [address] [place] [id number] [place] [address] Mar, [facility] [address] [address] Mar, [facility] [address] [address] Mar, [facility] [address] [address] Mar, [facility] [address] [address] Mar, Diabetes mellitus 250.00 ; COPD (chronic obstructive pulmonary disease) 496 ; Anxiety 300.00 and Arthritis 716.90 [facility] [address] [address] Feb, [facility] [address] [address] Feb, [facility] [address] [address] Feb, [facility] [address] [address] Feb, [facility] [address] [address] Jan, Seborrheic keratosis 702.19 and Nevus 21 6.9 [facility] [address] [address] Jan, [facility] [address] [address] Jan, Routine gynecological examination V72.31 ; Breast cancer screening V76.10 ; Hot flashes 627.2 ; Atypical nevi 216.9 and Constipation 564.00 [facility] [address] [address] Jan, [facility] [address] [address] December, [facility] [address] [address] 05 Dec, 2014 [facility] [address] [facility] [id number] [facility] [place] [address] 14 Nov, 2014 [facility] [address] [facility] [id number] [facility] [place] [address] 13 Nov, 2014 [facility] [address] [id number] [place] [address] 23 Oct, 2014 [facility] [address] [facility] [id number] [place] [address] 23 Oct, 2014 [facility] [address] [facility] [id number] [place] [address] 18 Oct, 2014 [facility] [address] [id number] [place] [address] 18 Oct, 2014 [facility] [address] [id number] [place] [address] 17 Oct, 2014 [facility] [address] [id number] [place] [address] 17 Oct, 2014 [facility] [address] [id number] [place] [address] 16 Oct, 2014 [facility] [address] [id number] [place] [address] 16 Oct, 2014 [facility] [address] [id number] [place] [address] 11 Oct, 2014 [facility] [address] [id number] [place] [address] Oct, [facility] [address] [facility] [id number] [place] [address] Sep, [facility] [address] [id number] [place] [address] Sep, [facility] [address] [id number] [place] [address] 19 Sep, 2014 [facility] [address] [id number] [place] [address] 18 Sep, 2014 [facility] [address] [id number] [place] [address] 18 Sep, 2014 [facility] [address] [id number] [place] [address] Sep, [facility] [address] [id number] [place] [address] Sep, [facility] [address] [id number] [place] [address] Aug, [facility] [address] [id number] [place] [address] Aug, [facility] [address] [id number] [place] [address] Aug, [facility] [address] [id number] [place] [address] Aug, [facility] [address] [id number] [place] [address] Aug, [facility] [address] [id number] [place] [address] Aug, [facility] [address] [id number] [place] [address] Jul, [facility] [address] [id number] [place] [address] Jul, [facility] [address] [id number] [place] [address] Jul, [facility] [address] [id number] [place] [address] Jul, [facility] [address] [id number] [place] [address] 08 Jul, 2014 [facility] [address] [id number] [place] [address] Jun, [facility] [address] [id number] [place] [address] Jun, [facility] [address] [id number] [place] [address] Jun, [facility] [address] [id number] [place] [address] Jun, [facility] [address] [id number] [place] [address] Jun, [facility] [address] [id number] [place] [address] Jun, [facility] [address] [id number] [place] [address] May, [facility] [address] [id number] [place] [address] May, [facility] [address] [id number] [place] [address] May, [facility] [address] [id number] [place] [address] May, [facility] [address] [id number] [place] [address] May, [facility] [address] [id number] [place] [address] May, [facility] [address] [id number] [place] [address] May, [facility] [address] [id number] [place] [address] May, [facility] [address] [id number] [place] [address] May, [facility] [address] [id number] [place] [address] Apr, 2013 [facility] [address] [id number] [place] [address] Apr, 2013 [facility] [address] [id number] [place] [address] Apr, 2013 [facility] [address] [id number] [place] [address] Apr, 2013 [facility] [address] [id number] [facility] [place] [address] Mar, [facility] [address] [id number] [facility] [place] [address] Mar, [facility] [address] [facility] [id number] [facility] [place] [address] Mar, [facility] [address] [facility] [id number] [facility] [place] [address] Mar, [facility] [address] [facility] [id number] [facility] [place] [address] Mar, [facility] [address] [facility] [id number] [facility] [place] [address] Mar, [facility] [address] [facility] [id number] [place] [address] Feb, [facility] [address] [id number] [place] [address] Feb, [facility] [address] [id number] [place] [address] Feb, [facility] [address] [facility] [id number] [facility] [place] [address] Feb, [facility] [address] [facility] [id number] [place] [address] Feb, [facility] [address] [id number] [place] [address] Feb, [facility] [address] [facility] [id number] [place] [address] Feb, [facility] [address] [facility] [id number] [place] [address] Feb, [facility] [address] [id number] [place] [address] Feb, [facility] [address] [facility] [id number] [place] [address] Feb, [facility] [address] [id number] [place] [address] Feb, [facility] [address] [id number] [place] [address] Feb, 2013 [facility] [address] [id number] [place] [address] Jan, [facility] [address] [id number] [place] [address] Jan, [facility] [address] [id number] [place] [address] Jan, [facility] [address] [facility] [id number] [place] [address] Jan, [facility] [address] [id number] [place] [address] Jan, [facility] [address] [id number] [place] [address] Jan, [facility] [address] [id number] [place] [address] Jan, [facility] [address] [id number] [place] [address] Jan, [facility] [address] [id number] [place] [address] Jan, [facility] [address] [id number] [place] [address] Jan, [facility] [address] [id number] [place] [address] Jan, [facility] [address] [id number] [place] [address] Jan, [facility] [address] [id number] [place] [address] Jan, [facility] [address] [id number] [place] [address] Jan, [facility] [address] [id number] [place] [address] Jan, [facility] [address] [id number] [place] [address] Jan, [facility] [address] [id number] [facility] [place] [address] Jan, [facility] [address] [id number] [facility] [place] [address] December, [facility] [address] [id number] [facility] [place] [address] December, [facility] [address] [id number] [facility] [place] [address] December, [facility] [address] [id number] [facility] [place] [address] December, [facility] [address] [id number] [place] [address] December, [facility] [address] [id number] [place] [address] December, [facility] [address] [id number] [place] [address] Nov, [facility] [address] [id number] [facility] [place] [address] Nov, [facility] [address] [id number] [place] [address] Nov, [facility] [address] [id number] [place] [address] Nov, [facility] [address] [id number] [place] [address] Nov, [facility] [address] [id number] [place] [address] Nov, [facility] [address] [id number] [place] [address] Nov, [facility] [address] [id number] [place] [address] Nov, [facility] [address] [id number] [place] [address] Nov, [facility] [address] [id number] [facility] [place] [address] 07 Nov, 2013 [facility] [address] [facility] [id number] [place] [address] Nov, [facility] [address] [facility] [id number] [place] [address] Nov, [facility] [address] [id number] [place] [address] Nov, [facility] [address] [facility] [id number] [place] [address] Nov, [facility] [address] [facility] [id number] [place] [address] Nov, [facility] [address] [id number] [place] [address] Nov, [facility] [address] [id number] [place] [address] Oct, [facility] [address] [id number] [place] [address] Oct, [facility] [address] [facility] [id number] [place] [address] Oct, [facility] [address] [id number] [place] [address] Oct, [facility] [address] [id number] [place] [address] Oct, [facility] [address] [id number] [place] [address] Oct, [facility] [address] [facility] [id number] [place] [address] Oct, [facility] [address] [id number] [place] [address] Oct, [facility] [address] [id number] [place] [address] Sep, [facility] [address] [id number] [place] [address] Sep, [facility] [address] [id number] [place] [address] Sep, [facility] [address] [id number] [place] [address] Sep, [facility] [address] [id number] [place] [address] Sep, [facility] [address] [id number] [place] [address] Sep, [facility] [address] [id number] [place] [address] Aug, [facility] [address] [id number] [place] [address] Aug, [facility] [address] [id number] [place] [address] Aug, [facility] [address] [id number] [place] [address] Aug, [facility] [address] [id number] [place] [address] Aug, [facility] [address] [id number] [place] [address] Aug, [facility] [address] [id number] [place] [address] Aug, [facility] [address] [id number] [place] [address] Aug, [facility] [address] [id number] [place] [address] Jul, [facility] [address] [id number] [place] [address] Jul, [facility] [address] [id number] [place] [address] Jul, [facility] [address] [id number] [place] [address] Jul, [facility] [address] [facility] [id number] [place] [address] 30 Jul, 2012 [facility] [address] [facility] [id number] [place] [address] 30 Jul, 2013 [facility] [address] [id number] [place] [address] Jul, [facility] [address] [id number] [place] [address] Jul, [facility] [address] [id number] [place] [address] Jul, [facility] [address] [facility] [id number] [place] [address] 14 Jun, 2013 [facility] [address] [facility] [id number] [place] [address] 14 Jun, 2013 [facility] [id number] [place] [address] Jun, [facility] [id number] [place] [address] Jun, [facility] [address] [id number] [place] [address] Jun, [facility] [address] [id number] [place] [address] 07 Jun, 2013 [facility] [address] [id number] [place] [address] 31 May, 2013 [facility] [address] [id number] [place] [address] 31 May, 2013 [facility] [address] [facility] [id number] [place] [address] 17 May, 2013 [facility] [id number] [place] [address] 17 May, 2013 [facility] [address] [facility] [id number] [place] [address] 14 May, 2013 [facility] [address] [facility] [id number] [place] [address] 14 May, 2013 [facility] [id number] [place] [address] 10 May, 2012 [facility] [address] [facility] [id number] [place] [address] 10 May, 2012 [facility] [address] [facility] [id number] [place] [address] 07 May, 2012 [facility] [address] [facility] [id number] [place] [address] 20 Sep, 2012 [facility] [address] [id number] [place] [address] 19 Sep, 2012 [facility] [address] [id number] [place] [address] 12 Apr, 2012 [facility] [address] [id number] [place] [address] 24 Sep, 2011 [facility] [address] [facility] [id number] [place] [address] 21 Sep, 2011 [facility] [address] [id number] [place] [address] 21 Sep, 2011 [facility] [address] [id number] [place] [address] 14 Sep, 2011 [facility] [address] [id number] [place] [address] 10 Sep, 2011 [facility] [address] [id number] [place] [address] 06 Sep, 2011 [facility] [address] [id number] [place] [address] 04 Sep, 2011 [facility] [address] [id number] [place] [address] 31 Mar, 2011 [facility] [address] [id number] [place] [address] 28 Mar, 2011 [facility] [address] [id number] [place] [address] 27 Mar, 2011 [facility] [address] [id number] [place] [address] Mar, [facility] [address] [facility] [id number] [place] [address] Mar, [facility] [address] [facility] [id number] [facility] [place] [address] Mar, [facility] [address] [id number] [place] [address] Feb, [facility] [address] [id number] [place] [address] Feb, [facility] [address] [facility] [id number] [facility] [place] [address] Feb, [facility] [address] [id number] [place] [address] Jan, [facility] [address] [id number] [place] [address] Jan, [facility] [address] [id number] [place] [address] Jan, [facility] [address] [id number] [place] [address] Jan, [facility] [address] [id number] [place] [address] Jan, [facility] [address] [id number] [place] [address] Jan, [facility] [address] [id number] [place] [address] Jan, [facility] [address] [id number] [place] [address] Jan, [facility] [address] [id number] [place] [address] December, [facility] [address] [id number] [place] [address] December, [facility] [place] [facility] [address] [id number] [place] [address] December, [facility] [place] [facility] [address] [id number] [place] [address] December, [facility] [place] [facility] [id number] [place] [address] December, [facility] [place] [facility] [address] [id number] [place] [address] December, [facility] [place] [facility] [address] [facility] [id number] [place] [address] 13 Nov, 2011 [facility] [place] [facility] [address] [facility] [id number] [place] [address] 13 Nov, 2011 [facility] [place] [facility] [address] [id number] [place] [address] Nov, [facility] [place] [facility] [address] [id number] [place] [address] 13 Nov, 2011 [facility] [place] [facility] [address] [id number] [place] [address] Nov, [facility] [place] [facility] [address] [id number] [place] [address] Oct, [facility] [place] [facility] [address] [id number] [place] [address] Sep, [facility] [place] [facility] [address] [id number] [place] [address] Aug, [facility] [place] [facility] [address] [id number] [place] [address] Aug, [facility] [place] [facility] [address] [id number] [place] [address] Aug, [facility] [place] [facility] [address] [id number] [place] [address] Aug, [facility] [place] [facility] [address] [facility] [id number] [place] [address] Aug, [facility] [place] [facility] [address] [id number] [place] [address] Jul, [facility] [place] [facility] [address] [id number] [place] [address] Jul, [facility] [place] [facility] [address] [id number] [place] [address] 28 Jun, 2011 [facility] [place] [facility] [address] [id number] [place] [address] 04 Jun, 2011 [facility] [place] [facility] [address] [facility] [id number] [place] [address] Jun, [facility] [place] [facility] [address] [id number] [place] [address] May, [facility] [place] [facility] [address] [id number] [place] [address] May, [facility] [place] [facility] [address] [id number] [place] [address] 16 Oct, 2010 [facility] [place] [facility] [address] [id number] [place] [address] Oct, [facility] [place] [facility] [address] [id number] [place] [address] 29 Jul, 2010 [facility] [place] [facility] [address] [id number] [place] [address] 08 Jul, 2010 [facility] [place] [facility] [address] [id number] [place] [address] Jul, [facility] [place] [facility] [address] [id number] [place] [address] Jul, [facility] [place] [facility] [address] [id number] [place] [address] Jul, [facility] [place] [facility] [address] [id number] [place] [address] Jun, [facility] [place] [facility] [address] [id number] [place] [address] Jun, [facility] [place] [facility] [address] [id number] [place] [address] Jun, [facility] [place] [facility] [address] [id number] [place] [address] May, [facility] [place] [facility] [address] [id number] [place] [address] 16 Mar, 2010 IMMUNIZATIONS No Known Immunizations SOCIAL HISTORY Never Assessed REASON FOR VISIT PLAN OF CARE VITAL SIGNS Height 60 in 2013-10-20 Weight 217 lbs 2013-10-20 Temperature 98 degrees Fahrenheit 2013-10-20 Heart Rate 80 bpm 2013-10-20 Respiratory Rate 20 2013-10-20 Blood pressure systolic 132 mmHg 2013-10-20 Blood pressure diastolic 78 mmHg 2013-10-20 MEDICATIONS Unknown Medications RESULTS No Results PROCEDURES Procedure Date Ordered Result Body Site GLYCATED HEMOGLOBIN TEST Oct 20, 2013 INSTRUCTIONS MEDICATIONS ADMINISTERED No Known Medications MEDICAL (GENERAL) HISTORY Type Description Date Medical History Hypertension Medical History Chronic obstructive pulmonary disease Medical History Type 2 diabetes mellitus Medical History Psychiatric disorders depression Surgical History Hysterectomy total abdominal 1996 Surgical History Orthopedic Surgery Surgical History Scleral buckle Hospitalization History No Hospitalization history informati on
--- OUTSIDE RECORDS SUMMARY | 2019-11-28 22:43 | XMS REPORT ---
Author Author Caren LYLE Organization [facility] Address [address] [place] [address] Care Team Providers Care Operations Section Manager Name Role Phone LAURIE LYLE Unavailable PROBLEMS Type Condition ICD9-CM Code SYB48-LI Code Onset Dates Condition S tatus SNOMED Code Problem Arthritis M19.90 Active 5838308 Problem COPD (chronic obstructive pulmonary disease) J44.9 Active 71456286 Problem Diabetes E11.9 Active 75219941 Problem Diabetic neuropathy E11.40 Active [id number] ALLERGIES No Information ENCOUNTERS Encounter Location Date Diagnosis [place] [address] [address] December, [facility] [address] [address] Aug, Arthritis M19.90 [facility] [address] [address] Jul, [facility] [address] [address] Jul, [facility] [address] [address] Jul, [facility] [address] [address] Jul, [facility] [address] [address] Jul, Diabetes E11.9 ; Diabetic neuropathy E11 .40 ; Arthritis M19.90 and COPD (chronic obstructive pulmonary disease) J44.9 [facility] [address] [address] Jul, [facility] [address] [address] Jun, 2014 [facility] [address] [facility] [id number] [place] [address] 23 Jun, 2014 [facility] [address] [id number] [place] [address] 17 Jun, 2014 [facility] [address] [id number] [place] [address] 10 Jun, 2014 [facility] [address] [id number] [place] [address] 15 May, 2015 [facility] [address] [facility] [id number] [place] [address] 13 May, 2015 [facility] [address] [id number] [place] [address] 07 May, 2014 [facility] [address] [id number] [place] [address] 22 Sep, 2014 [facility] [address] [id number] [place] [address] 21 Sep, 2014 [facility] [address] [id number] [place] [address] 21 Sep, 2014 [facility] [address] [id number] [place] [address] 15 Sep, 2014 [facility] [address] [id number] [place] [address] 11 Sep, 2014 [facility] [address] [id number] [place] [address] 09 Sep, 2014 [facility] [address] [id number] [place] [address] 08 Sep, 2014 [facility] [address] [id number] [place] [address] 03 Sep, 2014 [facility] [address] [id number] [place] [address] 02 Sep, 2014 [facility] [address] [id number] [place] [address] 31 Mar, 2014 [facility] [address] [place] [id number] [place] [address] Mar, [facility] [address] [address] Mar, [facility] [address] [address] Mar, [facility] [address] [address] Mar, [facility] [address] [address] Mar, Diabetes mellitus 250.00 ; COPD (chronic obstructive pulmonary disease) 496 ; Anxiety 300.00 and Arthritis 716.90 [facility] [address] [address] Feb, [facility] [address] [address] Feb, [facility] [address] [address] Feb, [facility] [address] [address] Feb, [facility] [address] [address] Jan, Seborrheic keratosis 702.19 and Nevus 21 6.9 [facility] [address] [address] Jan, [facility] [address] [address] Jan, Routine gynecological examination V72.31 ; Breast cancer screening V76.10 ; Hot flashes 627.2 ; Atypical nevi 216.9 and Constipation 564.00 [facility] [address] [address] Jan, [facility] [address] [address] December, [facility] [address] [address] 05 Dec, 2014 [facility] [address] [facility] [id number] [facility] [place] [address] 14 Nov, 2014 [facility] [address] [facility] [id number] [facility] [place] [address] 13 Nov, 2014 [facility] [address] [id number] [place] [address] 23 Oct, 2014 [facility] [address] [facility] [id number] [place] [address] 23 Oct, 2014 [facility] [address] [facility] [id number] [place] [address] 18 Oct, 2014 [facility] [address] [id number] [place] [address] 18 Oct, 2014 [facility] [address] [id number] [place] [address] 17 Oct, 2014 [facility] [address] [id number] [place] [address] 17 Oct, 2014 [facility] [address] [id number] [place] [address] 16 Oct, 2014 [facility] [address] [id number] [place] [address] 16 Oct, 2014 [facility] [address] [id number] [place] [address] 11 Oct, 2014 [facility] [address] [id number] [place] [address] Oct, [facility] [address] [facility] [id number] [place] [address] Sep, [facility] [address] [id number] [place] [address] Sep, [facility] [address] [id number] [place] [address] 19 Sep, 2014 [facility] [address] [id number] [place] [address] 18 Sep, 2014 [facility] [address] [id number] [place] [address] 18 Sep, 2014 [facility] [address] [id number] [place] [address] Sep, [facility] [address] [id number] [place] [address] Sep, [facility] [address] [id number] [place] [address] Aug, [facility] [address] [id number] [place] [address] Aug, [facility] [address] [id number] [place] [address] Aug, [facility] [address] [id number] [place] [address] Aug, [facility] [address] [id number] [place] [address] Aug, [facility] [address] [id number] [place] [address] Aug, [facility] [address] [id number] [place] [address] Jul, [facility] [address] [id number] [place] [address] Jul, [facility] [address] [id number] [place] [address] Jul, [facility] [address] [id number] [place] [address] Jul, [facility] [address] [id number] [place] [address] 08 Jul, 2014 [facility] [address] [id number] [place] [address] Jun, [facility] [address] [id number] [place] [address] Jun, [facility] [address] [id number] [place] [address] Jun, [facility] [address] [id number] [place] [address] Jun, [facility] [address] [id number] [place] [address] Jun, [facility] [address] [id number] [place] [address] Jun, [facility] [address] [id number] [place] [address] May, [facility] [address] [id number] [place] [address] May, [facility] [address] [id number] [place] [address] May, [facility] [address] [id number] [place] [address] May, [facility] [address] [id number] [place] [address] May, [facility] [address] [id number] [place] [address] May, [facility] [address] [id number] [place] [address] May, [facility] [address] [id number] [place] [address] May, [facility] [address] [id number] [place] [address] May, [facility] [address] [id number] [place] [address] Apr, 2013 [facility] [address] [id number] [place] [address] Apr, 2013 [facility] [address] [id number] [place] [address] Apr, 2013 [facility] [address] [id number] [place] [address] Apr, 2013 [facility] [address] [id number] [facility] [place] [address] Mar, [facility] [address] [id number] [facility] [place] [address] Mar, [facility] [address] [facility] [id number] [facility] [place] [address] Mar, [facility] [address] [facility] [id number] [facility] [place] [address] Mar, [facility] [address] [facility] [id number] [facility] [place] [address] Mar, [facility] [address] [facility] [id number] [facility] [place] [address] Mar, [facility] [address] [facility] [id number] [place] [address] Feb, [facility] [address] [id number] [place] [address] Feb, [facility] [address] [id number] [place] [address] Feb, [facility] [address] [facility] [id number] [facility] [place] [address] Feb, [facility] [address] [facility] [id number] [place] [address] Feb, [facility] [address] [id number] [place] [address] Feb, [facility] [address] [facility] [id number] [place] [address] Feb, [facility] [address] [facility] [id number] [place] [address] Feb, [facility] [address] [id number] [place] [address] Feb, [facility] [address] [facility] [id number] [place] [address] Feb, [facility] [address] [id number] [place] [address] Feb, [facility] [address] [id number] [place] [address] Feb, 2013 [facility] [address] [id number] [place] [address] Jan, [facility] [address] [id number] [place] [address] Jan, [facility] [address] [id number] [place] [address] Jan, [facility] [address] [facility] [id number] [place] [address] Jan, [facility] [address] [id number] [place] [address] Jan, [facility] [address] [id number] [place] [address] Jan, [facility] [address] [id number] [place] [address] Jan, [facility] [address] [id number] [place] [address] Jan, [facility] [address] [id number] [place] [address] Jan, [facility] [address] [id number] [place] [address] Jan, [facility] [address] [id number] [place] [address] Jan, [facility] [address] [id number] [place] [address] Jan, [facility] [address] [id number] [place] [address] Jan, [facility] [address] [id number] [place] [address] Jan, [facility] [address] [id number] [place] [address] Jan, [facility] [address] [id number] [place] [address] Jan, [facility] [address] [id number] [facility] [place] [address] Jan, [facility] [address] [id number] [facility] [place] [address] December, [facility] [address] [id number] [facility] [place] [address] December, [facility] [address] [id number] [facility] [place] [address] December, [facility] [address] [id number] [facility] [place] [address] December, [facility] [address] [id number] [place] [address] December, [facility] [address] [id number] [place] [address] December, [facility] [address] [id number] [place] [address] Nov, [facility] [address] [id number] [facility] [place] [address] Nov, [facility] [address] [id number] [place] [address] Nov, [facility] [address] [id number] [place] [address] Nov, [facility] [address] [id number] [place] [address] Nov, [facility] [address] [id number] [place] [address] Nov, [facility] [address] [id number] [place] [address] Nov, [facility] [address] [id number] [place] [address] Nov, [facility] [address] [id number] [place] [address] Nov, [facility] [address] [id number] [facility] [place] [address] 07 Nov, 2013 [facility] [address] [facility] [id number] [place] [address] Nov, [facility] [address] [facility] [id number] [place] [address] Nov, [facility] [address] [id number] [place] [address] Nov, [facility] [address] [facility] [id number] [place] [address] Nov, [facility] [address] [facility] [id number] [place] [address] Nov, [facility] [address] [id number] [place] [address] Nov, [facility] [address] [id number] [place] [address] Oct, [facility] [address] [id number] [place] [address] Oct, [facility] [address] [facility] [id number] [place] [address] Oct, [facility] [address] [id number] [place] [address] Oct, [facility] [address] [id number] [place] [address] Oct, [facility] [address] [id number] [place] [address] Oct, [facility] [address] [facility] [id number] [place] [address] Oct, [facility] [address] [id number] [place] [address] Oct, [facility] [address] [id number] [place] [address] Sep, [facility] [address] [id number] [place] [address] Sep, [facility] [address] [id number] [place] [address] Sep, [facility] [address] [id number] [place] [address] Sep, [facility] [address] [id number] [place] [address] Sep, [facility] [address] [id number] [place] [address] Sep, [facility] [address] [id number] [place] [address] Aug, [facility] [address] [id number] [place] [address] Aug, [facility] [address] [id number] [place] [address] Aug, [facility] [address] [id number] [place] [address] Aug, [facility] [address] [id number] [place] [address] Aug, [facility] [address] [id number] [place] [address] Aug, [facility] [address] [id number] [place] [address] Aug, [facility] [address] [id number] [place] [address] Aug, [facility] [address] [id number] [place] [address] Jul, [facility] [address] [id number] [place] [address] Jul, [facility] [address] [id number] [place] [address] Jul, [facility] [address] [id number] [place] [address] Jul, [facility] [address] [id number] [place] [address] 30 Jul, 2012 [facility] [address] [id number] [place] [address] 30 Jul, 2013 [facility] [address] [id number] [place] [address] Jul, [facility] [address] [id number] [place] [address] Jul, [facility] [address] [id number] [place] [address] Jul, [facility] [address] [id number] [place] [address] 14 Jun, 2013 [facility] [address] [id number] [place] [address] 14 Jun, 2013 [facility] [address] [id number] [place] [address] Jun, [facility] [address] [address] [id number] [place] [address] Jun, [facility] [address] [id number] [place] [address] Jun, [facility] [address] [id number] [place] [address] 07 Jun, 2013 [facility] [address] [id number] [place] [address] 31 May, 2013 [facility] [address] [id number] [place] [address] 31 May, 2013 [facility] [address] [id number] [place] [address] 17 May, 2013 [facility] [id number] [place] [address] 17 May, 2013 [facility] [address] [id number] [place] [address] 14 May, 2013 [facility] [address] [id number] [place] [address] 14 May, 2013 [facility] [address] [id number] [place] [address] 10 May, 2012 [facility] [address] [id number] [place] [address] 10 May, 2012 [facility] [address] [id number] [place] [address] 07 May, 2012 [facility] [address] [id number] [place] [address] 20 Sep, 2012 [facility] [address] [id number] [place] [address] 19 Sep, 2012 [facility] [address] [id number] [place] [address] 12 Apr, 2012 [facility] [address] [id number] [place] [address] 24 Sep, 2011 [facility] [address] [id number] [place] [address] 21 Sep, 2011 [facility] [address] [id number] [place] [address] 21 Sep, 2011 [facility] [address] [id number] [place] [address] 14 Sep, 2011 [facility] [address] [id number] [place] [address] 10 Sep, 2011 [facility] [address] [id number] [place] [address] 06 Sep, 2011 [facility] [address] [id number] [place] [address] 04 Sep, 2011 [facility] [address] [id number] [place] [address] 31 Mar, 2011 [facility] [address] [id number] [place] [address] 28 Mar, 2011 [facility] [address] [id number] [place] [address] 27 Mar, 2011 [facility] [address] [id number] [place] [address] Mar, [facility] [address] [facility] [id number] [place] [address] Mar, [facility] [address] [facility] [id number] [facility] [place] [address] Mar, [facility] [place] [facility] [address] [id number] [place] [address] Feb, [facility] [place] [facility] [address] [id number] [place] [address] Feb, [facility] [place] [facility] [address] [facility] [id number] [facility] [place] [address] Feb, [facility] [place] [facility] [address] [id number] [place] [address] Jan, [facility] [place] [facility] [address] [id number] [place] [address] Jan, [facility] [place] [facility] [address] [id number] [place] [address] Jan, [facility] [place] [facility] [address] [id number] [place] [address] Jan, [facility] [place] [facility] [address] [id number] [place] [address] Jan, [facility] [place] [facility] [address] [id number] [place] [address] Jan, [facility] [place] [facility] [address] [id number] [place] [address] Jan, [facility] [place] [facility] [address] [id number] [place] [address] Jan, [facility] [place] [facility] [address] [id number] [place] [address] December, [facility] [place] [facility] [address] [id number] [place] [address] December, [facility] [place] [facility] [address] [id number] [place] [address] December, [facility] [place] [facility] [address] [id number] [place] [address] December, [facility] [place] [facility] [address] [id number] [place] [address] December, [facility] [place] [facility] [address] [id number] [place] [address] December, [facility] [place] [facility] [address] [id number] [place] [address] 13 Nov, 2011 [facility] [place] [facility] [address] [id number] [place] [address] 13 Nov, 2011 [facility] [place] [facility] [address] [id number] [place] [address] Nov, [facility] [place] [facility] [address] [id number] [place] [address] 13 Nov, 2011 [facility] [place] [facility] [address] [id number] [place] [address] Nov, [facility] [place] [facility] [address] [id number] [place] [address] Oct, [facility] [place] [facility] [address] [id number] [place] [address] Sep, [facility] [place] [facility] [address] [id number] [place] [address] Aug, [facility] [place] [facility] [address] [id number] [place] [address] Aug, [facility] [place] [facility] [address] [id number] [place] [address] Aug, [facility] [place] [facility] [address] [id number] [place] [address] Aug, [facility] [place] [facility] [address] [id number] [place] [address] Aug, [facility] [place] [facility] [address] [id number] [place] [address] Jul, [facility] [place] [facility] [address] [id number] [place] [address] Jul, [facility] [place] [facility] [address] [id number] [place] [address] 28 Jun, 2011 [facility] [place] [facility] [address] [id number] [place] [address] 04 Jun, 2011 [facility] [place] [facility] [address] [id number] [place] [address] Jun, [facility] [place] [facility] [address] [id number] [place] [address] May, [facility] [place] [facility] [address] [id number] [place] [address] May, [facility] [place] [facility] [address] [id number] [place] [address] 16 Oct, 2010 [facility] [place] [facility] [address] [id number] [place] [address] Oct, [facility] [place] [facility] [address] [id number] [place] [address] 29 Jul, 2010 [facility] [place] [facility] [address] [id number] [place] [address] 08 Jul, 2010 [facility] [place] [facility] [address] [id number] [place] [address] Jul, [facility] [place] [facility] [address] [id number] [place] [address] Jul, [facility] [place] [facility] [address] [id number] [place] [address] Jul, [facility] [place] [facility] [address] [id number] [place] [address] Jun, [facility] [place] [facility] [address] [id number] [place] [address] Jun, [facility] [place] [facility] [address] [id number] [place] [address] Jun, [facility] [address] [id number] [place] [address] May, [facility] [address] [id number] [place] [address] 16 Mar, 2010 IMMUNIZATIONS No Known Immunizations [...]
--- OUTSIDE RECORDS SUMMARY | 2019-11-28 22:44 | XMS REPORT ---
Author Author Caren LYLE Organization [facility] Address [address] [place] [address] Care Team Providers Care Woodworker Helper Name Role Phone LAURIE LYLE Unavailable PROBLEMS Type Condition ICD9-CM Code VEL84-CQ Code Onset Dates Condition S tatus SNOMED Code Problem COPD (chronic obstructive pulmonary disease) J44.9 Active 49263201 Problem Diabetes E11.9 Active 53494269 Problem Diabetic neuropathy E11.40 Active 814684132 Problem Arthritis M19.90 Active 1632310 ALLERGIES No Information ENCOUNTERS Encounter Location Date Diagnosis [place] [address] [address] December, [facility] [address] [address] Aug, Arthritis M19.90 [facility] [address] [address] Jul, [facility] [address] [address] Jul, [facility] [address] [address] Jul, [facility] [address] [address] Jul, [facility] [address] [address] Jul, Diabetes E11.9 ; Diabetic neuropathy E11 .40 ; Arthritis M19.90 and COPD (chronic obstructive pulmonary disease) J44.9 [facility] [address] [address] Jul, [facility] [address] [address] Jun, 2014 [facility] [address] [facility] [id number] [place] [address] 23 Jun, 2014 [facility] [address] [id number] [place] [address] 17 Jun, 2014 [facility] [address] [id number] [place] [address] 10 Jun, 2014 [facility] [address] [id number] [place] [address] 15 May, 2015 [facility] [address] [facility] [id number] [place] [address] 13 May, 2015 [facility] [address] [id number] [place] [address] 07 May, 2014 [facility] [address] [id number] [place] [address] 22 Sep, 2014 [facility] [address] [id number] [place] [address] 21 Sep, 2014 [facility] [address] [id number] [place] [address] 21 Sep, 2014 [facility] [address] [id number] [place] [address] 15 Sep, 2014 [facility] [address] [id number] [place] [address] 11 Sep, 2014 [facility] [address] [id number] [place] [address] 09 Sep, 2014 [facility] [address] [id number] [place] [address] 08 Sep, 2014 [facility] [address] [id number] [place] [address] 03 Sep, 2014 [facility] [address] [id number] [place] [address] 02 Sep, 2014 [facility] [address] [id number] [place] [address] 31 Mar, 2014 [facility] [address] [place] [id number] [place] [address] Mar, [facility] [address] [address] Mar, [facility] [address] [address] Mar, [facility] [address] [address] Mar, [facility] [address] [address] Mar, Diabetes mellitus 250.00 ; COPD (chronic obstructive pulmonary disease) 496 ; Anxiety 300.00 and Arthritis 716.90 [facility] [address] [address] Feb, [facility] [address] [address] Feb, [facility] [address] [address] Feb, [facility] [address] [address] Feb, [facility] [address] [address] Jan, Seborrheic keratosis 702.19 and Nevus 21 6.9 [facility] [address] [address] Jan, [facility] [address] [address] Jan, Routine gynecological examination V72.31 ; Breast cancer screening V76.10 ; Hot flashes 627.2 ; Atypical nevi 216.9 and Constipation 564.00 [facility] [address] [address] Jan, [facility] [address] [address] December, [facility] [address] [address] 05 Dec, 2014 [facility] [address] [facility] [id number] [facility] [address] 14 Nov, 2014 [facility] [address] [facility] [id number] [facility] [address] 13 Nov, 2014 [facility] [address] [id number] [place] [address] 23 Oct, 2014 [facility] [address] [facility] [id number] [place] [address] 23 Oct, 2014 [facility] [address] [facility] [id number] [place] [address] 18 Oct, 2014 [facility] [address] [id number] [place] [address] 18 Oct, 2014 [facility] [address] [id number] [place] [address] 17 Oct, 2014 [facility] [address] [id number] [place] [address] 17 Oct, 2014 [facility] [address] [id number] [place] [address] 16 Oct, 2014 [facility] [address] [id number] [place] [address] 16 Oct, 2014 [facility] [address] [id number] [place] [address] 11 Oct, 2014 [facility] [address] [id number] [place] [address] Oct, [facility] [address] [facility] [id number] [place] [address] Sep, [facility] [address] [id number] [place] [address] Sep, [facility] [address] [id number] [place] [address] 19 Sep, 2014 [facility] [address] [id number] [place] [address] 18 Sep, 2014 [facility] [address] [id number] [place] [address] 18 Sep, 2014 [facility] [address] [id number] [place] [address] Sep, [facility] [address] [id number] [place] [address] Sep, [facility] [address] [id number] [place] [address] Aug, [facility] [address] [id number] [place] [address] Aug, [facility] [address] [id number] [place] [address] Aug, [facility] [address] [id number] [place] [address] Aug, [facility] [address] [id number] [place] [address] Aug, [facility] [address] [id number] [place] [address] Aug, [facility] [address] [id number] [place] [address] Jul, [facility] [address] [id number] [place] [address] Jul, [facility] [address] [id number] [place] [address] Jul, [facility] [address] [id number] [place] [address] Jul, [facility] [address] [id number] [place] [address] 08 Jul, 2014 [facility] [address] [id number] [place] [address] Jun, [facility] [address] [id number] [place] [address] Jun, [facility] [address] [id number] [place] [address] Jun, [facility] [address] [id number] [place] [address] Jun, [facility] [address] [id number] [place] [address] Jun, [facility] [address] [id number] [place] [address] Jun, [facility] [address] [id number] [place] [address] May, [facility] [address] [id number] [place] [address] May, [facility] [address] [id number] [place] [address] May, [facility] [address] [id number] [place] [address] May, [facility] [address] [id number] [place] [address] May, [facility] [address] [id number] [place] [address] May, [facility] [address] [id number] [place] [address] May, [facility] [address] [id number] [place] [address] May, [facility] [address] [id number] [place] [address] May, [facility] [address] [id number] [place] [address] Apr, 2013 [facility] [address] [id number] [place] [address] Apr, 2013 [facility] [address] [id number] [place] [address] Apr, 2013 [facility] [address] [id number] [place] [address] Apr, 2013 [facility] [address] [id number] [facility] [address] Mar, [facility] [address] [id number] [facility] [address] Mar, [facility] [address] [facility] [id number] [facility] [address] Mar, [facility] [address] [facility] [id number] [facility] [address] Mar, [facility] [address] [facility] [id number] [facility] [address] Mar, [facility] [address] [facility] [id number] [facility] [address] Mar, [facility] [address] [facility] [id number] [place] [address] Feb, [facility] [address] [id number] [place] [address] Feb, [facility] [address] [id number] [place] [address] Feb, [facility] [address] [facility] [id number] [facility] [address] Feb, [facility] [address] [facility] [id number] [place] [address] Feb, [facility] [address] [id number] [place] [address] Feb, [facility] [address] [facility] [id number] [place] [address] Feb, [facility] [address] [facility] [id number] [place] [address] Feb, [facility] [address] [id number] [place] [address] Feb, [facility] [address] [facility] [id number] [place] [address] Feb, [facility] [address] [id number] [place] [address] Feb, [facility] [address] [id number] [place] [address] Feb, 2013 [facility] [address] [id number] [place] [address] Jan, [facility] [address] [id number] [place] [address] Jan, [facility] [address] [id number] [place] [address] Jan, [facility] [address] [facility] [id number] [place] [address] Jan, [facility] [address] [id number] [place] [address] Jan, [facility] [address] [id number] [place] [address] Jan, [facility] [address] [id number] [place] [address] Jan, [facility] [address] [id number] [place] [address] Jan, [facility] [address] [id number] [place] [address] Jan, [facility] [address] [id number] [place] [address] Jan, [facility] [address] [id number] [place] [address] Jan, [facility] [address] [id number] [place] [address] Jan, [facility] [address] [id number] [place] [address] Jan, [facility] [address] [id number] [place] [address] Jan, [facility] [address] [id number] [place] [address] Jan, [facility] [address] [id number] [place] [address] Jan, [facility] [address] [id number] [facility] [address] Jan, [facility] [address] [id number] [facility] [address] December, [facility] [address] [id number] [facility] [address] December, [facility] [address] [id number] [facility] [address] December, [facility] [address] [id number] [facility] [address] December, [facility] [address] [id number] [place] [address] December, [facility] [address] [id number] [place] [address] December, [facility] [address] [id number] [place] [address] Nov, [facility] [address] [id number] [facility] [address] Nov, [facility] [address] [id number] [place] [address] Nov, [facility] [address] [id number] [place] [address] Nov, [facility] [address] [id number] [place] [address] Nov, [facility] [address] [id number] [place] [address] Nov, [facility] [address] [id number] [place] [address] Nov, [facility] [address] [id number] [place] [address] Nov, [facility] [address] [id number] [place] [address] Nov, [facility] [address] [id number] [facility] [address] 07 Nov, 2013 [facility] [address] [facility] [id number] [place] [address] Nov, [facility] [address] [facility] [id number] [place] [address] Nov, [facility] [address] [id number] [place] [address] Nov, [facility] [address] [facility] [id number] [place] [address] Nov, [facility] [address] [facility] [id number] [place] [address] Nov, [facility] [address] [id number] [place] [address] Nov, [facility] [address] [id number] [place] [address] Oct, [facility] [address] [id number] [place] [address] Oct, [facility] [address] [facility] [id number] [place] [address] Oct, [facility] [address] [id number] [place] [address] Oct, [facility] [address] [id number] [place] [address] Oct, [facility] [address] [id number] [place] [address] Oct, [facility] [address] [facility] [id number] [place] [address] Oct, [facility] [address] [id number] [place] [address] Oct, [facility] [address] [id number] [place] [address] Sep, [facility] [address] [id number] [place] [address] Sep, [facility] [address] [id number] [place] [address] Sep, [facility] [address] [id number] [place] [address] Sep, [facility] [address] [id number] [place] [address] Sep, [facility] [address] [id number] [place] [address] Sep, [facility] [address] [id number] [place] [address] Aug, [facility] [address] [id number] [place] [address] Aug, [facility] [address] [id number] [place] [address] Aug, [facility] [address] [id number] [place] [address] Aug, [facility] [address] [id number] [place] [address] Aug, [facility] [address] [id number] [place] [address] Aug, [facility] [address] [id number] [place] [address] Aug, [facility] [address] [id number] [place] [address] Aug, [facility] [address] [id number] [place] [address] Jul, [facility] [address] [id number] [place] [address] Jul, [facility] [address] [id number] [place] [address] Jul, [facility] [address] [id number] [place] [address] Jul, [facility] [address] [id number] [place] [address] 30 Jul, 2012 [facility] [address] [id number] [place] [address] 30 Jul, 2013 [facility] [address] [id number] [place] [address] Jul, [facility] [address] [id number] [place] [address] Jul, [facility] [address] [id number] [place] [address] Jul, [facility] [address] [id number] [place] [address] 14 Jun, 2013 [facility] [address] [id number] [place] [address] 14 Jun, 2013 [facility] [id number] [place] [address] Jun, [facility] [id number] [place] [address] Jun, [facility] [address] [id number] [place] [address] Jun, [facility] [address] [id number] [place] [address] 07 Jun, 2013 [facility] [address] [id number] [place] [address] 31 May, 2013 [facility] [address] [id number] [place] [address] 31 May, 2013 [facility] [address] [id number] [place] [address] 17 May, 2013 [facility] [id number] [place] [address] 17 May, 2013 [facility] [address] [id number] [place] [address] 14 May, 2013 [facility] [address] [id number] [place] [address] 14 May, 2013 [facility] [address] [id number] [place] [address] 10 May, 2012 [facility] [address] [id number] [place] [address] 10 May, 2012 [facility] [address] [id number] [place] [address] 07 May, 2012 [facility] [address] [id number] [place] [address] 20 Sep, 2012 [facility] [address] [id number] [place] [address] 19 Sep, 2012 [facility] [address] [id number] [place] [address] 12 Apr, 2012 [facility] [address] [id number] [place] [address] 24 Sep, 2011 [facility] [address] [id number] [place] [address] 21 Sep, 2011 [facility] [address] [id number] [place] [address] 21 Sep, 2011 [facility] [address] [id number] [place] [address] 14 Sep, 2011 [facility] [address] [id number] [place] [address] 10 Sep, 2011 [facility] [address] [id number] [place] [address] 06 Sep, 2011 [facility] [address] [id number] [place] [address] 04 Sep, 2011 [facility] [address] [id number] [place] [address] 31 Mar, 2011 [facility] [address] [id number] [place] [address] 28 Mar, 2011 [facility] [address] [id number] [place] [address] 27 Mar, 2011 [facility] [address] [id number] [place] [address] Mar, [facility] [address] [facility] [id number] [place] [address] Mar, [facility] [address] [facility] [id number] [facility] [address] Mar, [facility] [address] [id number] [place] [address] Feb, [facility] [address] [id number] [place] [address] Feb, [facility] [address] [facility] [id number] [facility] [address] Feb, [facility] [address] [id number] [place] [address] Jan, [facility] [address] [id number] [place] [address] Jan, [facility] [address] [id number] [place] [address] Jan, [facility] [address] [id number] [place] [address] Jan, [facility] [address] [id number] [place] [address] Jan, [facility] [place] [facility] [address] [id number] [place] [address] Jan, [facility] [place] [facility] [address] [id number] [place] [address] Jan, [facility] [place] [facility] [address] [id number] [place] [address] Jan, [facility] [place] [facility] [address] [id number] [place] [address] December, [facility] [place] [facility] [address] [id number] [place] [address] December, [facility] [place] [facility] [address] [id number] [place] [address] December, [facility] [place] [facility] [address] [id number] [place] [address] December, [facility] [place] [facility] [id number] [place] [address] December, [facility] [place] [facility] [address] [id number] [place] [address] December, [facility] [place] [facility] [address] [id number] [place] [address] 13 Nov, 2011 [facility] [place] [facility] [address] [id number] [place] [address] 13 Nov, 2011 [facility] [place] [facility] [address] [id number] [place] [address] Nov, [facility] [place] [facility] [address] [id number] [place] [address] 13 Nov, 2011 [facility] [place] [facility] [address] [id number] [place] [address] Nov, [facility] [place] [facility] [address] [id number] [place] [address] Oct, [facility] [place] [facility] [address] [id number] [place] [address] Sep, [facility] [place] [facility] [address] [id number] [place] [address] Aug, [facility] [place] [facility] [address] [id number] [place] [address] Aug, [facility] [place] [facility] [address] [id number] [place] [address] Aug, [facility] [place] [facility] [address] [id number] [place] [address] Aug, [facility] [place] [facility] [address] [id number] [place] [address] Aug, [facility] [place] [facility] [address] [id number] [place] [address] Jul, [facility] [place] [facility] [address] [id number] [place] [address] Jul, [facility] [place] [facility] [address] [id number] [place] [address] 28 Jun, 2011 [facility] [place] [facility] [address] [id number] [place] [address] 04 Jun, 2011 [facility] [place] [facility] [address] [id number] [place] [address] Jun, [facility] [place] [facility] [address] [id number] [place] [address] May, [facility] [place] [facility] [address] [id number] [place] [address] May, [facility] [place] [facility] [address] [id number] [place] [address] 16 Oct, 2010 [facility] [place] [facility] [address] [id number] [place] [address] Oct, [facility] [place] [facility] [address] [id number] [place] [address] 29 Jul, 2010 [facility] [place] [facility] [address] [id number] [place] [address] 08 Jul, 2010 [facility] [place] [facility] [address] [id number] [place] [address] Jul, [facility] [place] [facility] [address] [id number] [place] [address] Jul, [facility] [place] [facility] [address] [id number] [place] [address] Jul, [facility] [place] [facility] [address] [id number] [place] [address] Jun, [facility] [place] [facility] [address] [id number] [place] [address] Jun, [facility] [place] [facility] [address] [id number] [place] [address] Jun, [facility] [place] [facility] [address] [id number] [place] [address] May, [facility] [place] [facility] [address] [id number] [place] [address] 16 Mar, 2010 IMMUNIZATIONS No Known Immunizations [...]
--- OUTSIDE RECORDS SUMMARY | 2019-11-28 22:44 | XMS REPORT ---
Author Author Caren LYLE Organization [facility] Address [address] [place] [address] Care Team Providers Care Pasta Maker Name Role Phone LAURIE LYLE Unavailable PROBLEMS Type Condition ICD9-CM Code [id number] Code Onset Dates Condition S tatus SNOMED Code Problem COPD (chronic obstructive pulmonary disease) J44.9 Active 87767024 Problem Diabetes E11.9 Active 79602936 Problem Diabetic neuropathy E11.40 Active 564322754 Problem Arthritis M19.90 Active [id number] ALLERGIES No Information ENCOUNTERS Encounter Location Date Diagnosis [place] [address] [address] December, [facility] [address] [address] Aug, Arthritis M19.90 [facility] [address] [address] Jul, [facility] [address] [address] Jul, [facility] [address] [address] Jul, [facility] [address] [address] Jul, [facility] [address] [address] Jul, Diabetes E11.9 ; Diabetic neuropathy E11 .40 ; Arthritis M19.90 and COPD (chronic obstructive pulmonary disease) J44.9 [facility] [address] [address] Jul, [facility] [address] [address] Jun, 2014 [facility] [address] [facility] [id number] [place] [address] 23 Jun, 2014 [facility] [address] [id number] [place] [address] 17 Jun, 2014 [facility] [address] [id number] [place] [address] 10 Jun, 2014 [facility] [address] [id number] [place] [address] 15 May, 2015 [facility] [address] [facility] [id number] [place] [address] 13 May, 2015 [facility] [address] [id number] [place] [address] 07 May, 2014 [facility] [address] [id number] [place] [address] 22 Sep, 2014 [facility] [address] [id number] [place] [address] 21 Sep, 2014 [facility] [address] [id number] [place] [address] 21 Sep, 2014 [facility] [address] [id number] [place] [address] 15 Sep, 2014 [facility] [address] [id number] [place] [address] 11 Sep, 2014 [facility] [address] [id number] [place] [address] 09 Sep, 2014 [facility] [address] [id number] [place] [address] 08 Sep, 2014 [facility] [address] [id number] [place] [address] 03 Sep, 2014 [facility] [address] [id number] [place] [address] 02 Sep, 2014 [facility] [address] [id number] [place] [address] 31 Mar, 2014 [facility] [address] [place] [id number] [place] [address] Mar, [facility] [address] [address] Mar, [facility] [address] [address] Mar, [facility] [address] [address] Mar, [facility] [address] [address] Mar, Diabetes mellitus 250.00 ; COPD (chronic obstructive pulmonary disease) 496 ; Anxiety 300.00 and Arthritis 716.90 [facility] [address] [address] Feb, [facility] [address] [address] Feb, [facility] [address] [address] Feb, [facility] [address] [address] Feb, [facility] [address] [address] Jan, Seborrheic keratosis 702.19 and Nevus 21 6.9 [facility] [address] [address] Jan, [facility] [address] [address] Jan, Routine gynecological examination V72.31 ; Breast cancer screening V76.10 ; Hot flashes 627.2 ; Atypical nevi 216.9 and Constipation 564.00 [facility] [address] [address] Jan, [facility] [address] [address] December, [facility] [address] [address] 05 Dec, 2014 [facility] [address] [facility] [id number] [facility] [address] 14 Nov, 2014 [facility] [address] [facility] [id number] [facility] [address] 13 Nov, 2014 [facility] [address] [id number] [place] [address] 23 Oct, 2014 [facility] [address] [facility] [id number] [place] [address] 23 Oct, 2014 [facility] [address] [facility] [id number] [place] [address] 18 Oct, 2014 [facility] [address] [id number] [place] [address] 18 Oct, 2014 [facility] [address] [id number] [place] [address] 17 Oct, 2014 [facility] [address] [id number] [place] [address] 17 Oct, 2014 [facility] [address] [id number] [place] [address] 16 Oct, 2014 [facility] [address] [id number] [place] [address] 16 Oct, 2014 [facility] [address] [id number] [place] [address] 11 Oct, 2014 [facility] [address] [id number] [place] [address] Oct, [facility] [address] [facility] [id number] [place] [address] Sep, [facility] [address] [id number] [place] [address] Sep, [facility] [address] [id number] [place] [address] 19 Sep, 2014 [facility] [address] [id number] [place] [address] 18 Sep, 2014 [facility] [address] [id number] [place] [address] 18 Sep, 2014 [facility] [address] [id number] [place] [address] Sep, [facility] [address] [id number] [place] [address] Sep, [facility] [address] [id number] [place] [address] Aug, [facility] [address] [id number] [place] [address] Aug, [facility] [address] [id number] [place] [address] Aug, [facility] [address] [id number] [place] [address] Aug, [facility] [address] [id number] [place] [address] Aug, [facility] [address] [id number] [place] [address] Aug, [facility] [address] [id number] [place] [address] Jul, [facility] [address] [id number] [place] [address] Jul, [facility] [address] [id number] [place] [address] Jul, [facility] [address] [id number] [place] [address] Jul, [facility] [address] [id number] [place] [address] 08 Jul, 2014 [facility] [address] [id number] [place] [address] Jun, [facility] [address] [id number] [place] [address] Jun, [facility] [address] [id number] [place] [address] Jun, [facility] [address] [id number] [place] [address] Jun, [facility] [address] [id number] [place] [address] Jun, [facility] [address] [id number] [place] [address] Jun, [facility] [address] [id number] [place] [address] May, [facility] [address] [id number] [place] [address] May, [facility] [address] [id number] [place] [address] May, [facility] [address] [id number] [place] [address] May, [facility] [address] [id number] [place] [address] May, [facility] [address] [id number] [place] [address] May, [facility] [address] [id number] [place] [address] May, [facility] [address] [id number] [place] [address] May, [facility] [address] [id number] [place] [address] May, [facility] [address] [id number] [place] [address] Apr, 2013 [facility] [address] [id number] [place] [address] Apr, 2013 [facility] [address] [id number] [place] [address] Apr, 2013 [facility] [address] [id number] [place] [address] Apr, 2013 [facility] [address] [id number] [facility] [address] Mar, [facility] [address] [id number] [facility] [address] Mar, [facility] [address] [facility] [id number] [facility] [address] Mar, [facility] [address] [facility] [id number] [facility] [address] Mar, [facility] [address] [facility] [id number] [facility] [address] Mar, [facility] [address] [facility] [id number] [facility] [address] Mar, [facility] [address] [facility] [id number] [place] [address] Feb, [facility] [address] [id number] [place] [address] Feb, [facility] [address] [id number] [place] [address] Feb, [facility] [address] [facility] [id number] [facility] [address] Feb, [facility] [address] [facility] [id number] [place] [address] Feb, [facility] [address] [id number] [place] [address] Feb, [facility] [address] [facility] [id number] [place] [address] Feb, [facility] [address] [facility] [id number] [place] [address] Feb, [facility] [address] [id number] [place] [address] Feb, [facility] [address] [facility] [id number] [place] [address] Feb, [facility] [address] [id number] [place] [address] Feb, [facility] [address] [id number] [place] [address] Feb, 2013 [facility] [address] [id number] [place] [address] Jan, [facility] [address] [id number] [place] [address] Jan, [facility] [address] [id number] [place] [address] Jan, [facility] [address] [facility] [id number] [place] [address] Jan, [facility] [address] [id number] [place] [address] Jan, [facility] [address] [id number] [place] [address] Jan, [facility] [address] [id number] [place] [address] Jan, [facility] [address] [id number] [place] [address] Jan, [facility] [address] [id number] [place] [address] Jan, [facility] [address] [id number] [place] [address] Jan, [facility] [address] [id number] [place] [address] Jan, [facility] [address] [id number] [place] [address] Jan, [facility] [address] [id number] [place] [address] Jan, [facility] [address] [id number] [place] [address] Jan, [facility] [address] [id number] [place] [address] Jan, [facility] [address] [id number] [place] [address] Jan, [facility] [address] [id number] [facility] [address] Jan, [facility] [address] [id number] [facility] [address] December, [facility] [address] [id number] [facility] [address] December, [facility] [address] [id number] [facility] [address] December, [facility] [address] [id number] [facility] [address] December, [facility] [address] [id number] [place] [address] December, [facility] [address] [id number] [place] [address] December, [facility] [address] [id number] [place] [address] Nov, [facility] [address] [id number] [facility] [address] Nov, [facility] [address] [id number] [place] [address] Nov, [facility] [address] [id number] [place] [address] Nov, [facility] [address] [id number] [place] [address] Nov, [facility] [address] [id number] [place] [address] Nov, [facility] [address] [id number] [place] [address] Nov, [facility] [address] [id number] [place] [address] Nov, [facility] [address] [id number] [place] [address] Nov, [facility] [address] [id number] [facility] [address] 07 Nov, 2013 [facility] [address] [facility] [id number] [place] [address] Nov, [facility] [address] [facility] [id number] [place] [address] Nov, [facility] [address] [id number] [place] [address] Nov, [facility] [address] [facility] [id number] [place] [address] Nov, [facility] [address] [facility] [id number] [place] [address] Nov, [facility] [address] [id number] [place] [address] Nov, [facility] [address] [id number] [place] [address] Oct, [facility] [address] [id number] [place] [address] Oct, [facility] [address] [facility] [id number] [place] [address] Oct, [facility] [address] [id number] [place] [address] Oct, [facility] [address] [id number] [place] [address] Oct, [facility] [address] [id number] [place] [address] Oct, [facility] [address] [facility] [id number] [place] [address] Oct, [facility] [address] [id number] [place] [address] Oct, [facility] [address] [id number] [place] [address] Sep, [facility] [address] [id number] [place] [address] Sep, [facility] [address] [id number] [place] [address] Sep, [facility] [address] [id number] [place] [address] Sep, [facility] [address] [id number] [place] [address] Sep, [facility] [address] [id number] [place] [address] Sep, [facility] [address] [id number] [place] [address] Aug, [facility] [address] [id number] [place] [address] Aug, [facility] [address] [id number] [place] [address] Aug, [facility] [address] [id number] [place] [address] Aug, [facility] [address] [id number] [place] [address] Aug, [facility] [address] [id number] [place] [address] Aug, [facility] [address] [id number] [place] [address] Aug, [facility] [address] [id number] [place] [address] Aug, [facility] [address] [id number] [place] [address] Jul, [facility] [address] [id number] [place] [address] Jul, [facility] [address] [id number] [place] [address] Jul, [facility] [address] [id number] [place] [address] Jul, [facility] [address] [id number] [place] [address] 30 Jul, 2012 [facility] [address] [id number] [place] [address] 30 Jul, 2013 [facility] [address] [id number] [place] [address] Jul, [facility] [address] [id number] [place] [address] Jul, [facility] [address] [id number] [place] [address] Jul, [facility] [address] [id number] [place] [address] 14 Jun, 2013 [facility] [address] [id number] [place] [address] 14 Jun, 2013 [facility] [id number] [place] [address] Jun, [facility] [id number] [place] [address] Jun, [facility] [address] [id number] [place] [address] Jun, [facility] [address] [id number] [place] [address] 07 Jun, 2013 [facility] [address] [id number] [place] [address] 31 May, 2013 [facility] [address] [id number] [place] [address] 31 May, 2013 [facility] [address] [id number] [place] [address] 17 May, 2013 [facility] [id number] [place] [address] 17 May, 2013 [facility] [address] [id number] [place] [address] 14 May, 2013 [facility] [address] [id number] [place] [address] 14 May, 2013 [facility] [id number] [place] [address] 10 May, 2012 [facility] [address] [id number] [place] [address] 10 May, 2012 [facility] [address] [id number] [place] [address] 07 May, 2012 [facility] [address] [id number] [place] [address] 20 Sep, 2012 [facility] [address] [id number] [place] [address] 19 Sep, 2012 [facility] [address] [id number] [place] [address] 12 Apr, 2012 [facility] [address] [id number] [place] [address] 24 Sep, 2011 [facility] [address] [id number] [place] [address] 21 Sep, 2011 [facility] [address] [id number] [place] [address] 21 Sep, 2011 [facility] [address] [id number] [place] [address] 14 Sep, 2011 [facility] [address] [id number] [place] [address] 10 Sep, 2011 [facility] [address] [id number] [place] [address] 06 Sep, 2011 [facility] [address] [id number] [place] [address] 04 Sep, 2011 [facility] [address] [id number] [place] [address] 31 Mar, 2011 [facility] [address] [facility] [id number] [place] [address] 28 Mar, 2011 [facility] [place] [facility] [address] [id number] [place] [address] 27 Mar, 2011 [facility] [place] [facility] [address] [id number] [place] [address] Mar, [facility] [place] [facility] [address] [facility] [id number] [place] [address] Mar, [facility] [place] [facility] [address] [facility] [id number] [facility] [place] [address] Mar, [facility] [place] [facility] [address] [id number] [place] [address] Feb, [facility] [place] [facility] [address] [id number] [place] [address] Feb, [facility] [place] [facility] [address] [facility] [id number] [facility] [address] Feb, [facility] [place] [facility] [address] [id number] [place] [address] Jan, [facility] [place] [facility] [address] [id number] [place] [address] Jan, [facility] [place] [facility] [address] [id number] [place] [address] Jan, [facility] [place] [facility] [address] [id number] [place] [address] Jan, [facility] [place] [facility] [address] [id number] [place] [address] Jan, [facility] [place] [facility] [address] [id number] [place] [address] Jan, [facility] [place] [facility] [address] [id number] [place] [address] Jan, [facility] [place] [facility] [address] [id number] [place] [address] Jan, [facility] [place] [facility] [address] [id number] [place] [address] December, [facility] [place] [facility] [address] [id number] [place] [address] December, [facility] [place] [facility] [address] [id number] [place] [address] December, [facility] [place] [facility] [address] [id number] [place] [address] December, [facility] [place] [facility] [address] [id number] [place] [address] December, [facility] [place] [facility] [address] [id number] [place] [address] December, [facility] [place] [facility] [address] [id number] [place] [address] 13 Nov, 2011 [facility] [place] [facility] [address] [id number] [place] [address] 13 Nov, 2011 [facility] [place] [facility] [address] [id number] [place] [address] Nov, [facility] [place] [facility] [address] [id number] [place] [address] 13 Nov, 2011 [facility] [place] [facility] [address] [id number] [place] [address] Nov, [facility] [place] [facility] [address] [id number] [place] [address] Oct, [facility] [place] [facility] [address] [id number] [place] [address] Sep, [facility] [place] [facility] [address] [id number] [place] [address] Aug, [facility] [place] [facility] [address] [id number] [place] [address] Aug, [facility] [place] [facility] [address] [id number] [place] [address] Aug, [facility] [place] [facility] [address] [id number] [place] [address] Aug, [facility] [place] [facility] [address] [id number] [place] [address] Aug, [facility] [place] [facility] [address] [id number] [place] [address] Jul, [facility] [place] [facility] [address] [id number] [place] [address] Jul, [facility] [place] [facility] [address] [id number] [place] [address] 28 Jun, 2011 [facility] [place] [facility] [address] [id number] [place] [address] 04 Jun, 2011 [facility] [place] [facility] [address] [id number] [place] [address] Jun, [facility] [place] [facility] [address] [id number] [place] [address] May, [facility] [place] [facility] [address] [id number] [place] [address] May, [facility] [place] [facility] [address] [id number] [place] [address] 16 Oct, 2010 [facility] [place] [facility] [address] [id number] [place] [address] Oct, [facility] [place] [facility] [address] [id number] [place] [address] 29 Jul, 2010 [facility] [place] [facility] [address] [id number] [place] [address] 08 Jul, 2010 [facility] [place] [facility] [address] [id number] [place] [address] Jul, [facility] [place] [facility] [address] [id number] [place] [address] Jul, [facility] [place] [facility] [address] [id number] [place] [address] Jul, [facility] [place] [facility] [address] [id number] [place] [address] Jun, [facility] [place] [facility] [address] [id number] [place] [address] Jun, [facility] [place] [facility] [address] [id number] [place] [address] Jun, [facility] [place] [facility] [address] [id number] [place] [address] May, [facility] [place] [facility] [address] [id number] [place] [address] 16 Mar, 2010 IMMUNIZATIONS No Known Immunizations SOCIAL HISTORY Never Assessed REASON FOR VISIT PLAN OF CARE VITAL SIGNS Height 60 in 2013-12-07 Weight 236.2 lbs 2013-12-07 Temperature 97 degrees Fahrenheit 2013-12-07 Heart Rate 86 bpm 2013-12-07 Respiratory Rate 18 2013-12-07 Blood pressure systolic 124 mmHg 2013-12-07 Blood pressure diastolic 86 mmHg 2013-12-07 MEDICATIONS Unknown Medications RESULTS No Results PROCEDURES Procedure Date Ordered Result Body Site MEASURE BLOOD OXYGEN LEVEL December 07, 2013 INSTRUCTIONS MEDICATIONS ADMINISTERED No Known Medications MEDICAL (GENERAL) HISTORY Type Description Date Medical History Hypertension Medical History Chronic obstructive pulmonary disease Medical History Type 2 diabetes mellitus Medical History Psychiatric disorders depression Surgical History Hysterectomy total abdominal 1996 Surgical History Orthopedic Surgery Surgical History Scleral buckle Hospitalization History No Hospitalization history informati on
--- OUTSIDE RECORDS SUMMARY | 2019-11-28 22:44 | XMS REPORT ---
Author Author Caren LYLE Organization [facility] Address [address] [place] [address] Care Team Providers Care Rehabilitation Nurse Name Role Phone LAURIE LYLE Unavailable PROBLEMS Type Condition ICD9-CM Code COR15-IR Code Onset Dates Condition S tatus SNOMED Code Problem COPD (chronic obstructive pulmonary disease) J44.9 Active 13491008 Problem Diabetes E11.9 Active 52110550 Problem Diabetic neuropathy E11.40 Active 860207520 Problem Arthritis M19.90 Active 0334459 ALLERGIES No Information ENCOUNTERS Encounter Location Date Diagnosis [place] [address] [address] December, [facility] [address] [address] Aug, Arthritis M19.90 [facility] [address] [address] Jul, [facility] [address] [address] Jul, [facility] [address] [address] Jul, [facility] [address] [address] Jul, [facility] [address] [address] Jul, Diabetes E11.9 ; Diabetic neuropathy E11 .40 ; Arthritis M19.90 and COPD (chronic obstructive pulmonary disease) J44.9 [facility] [address] [address] Jul, [facility] [address] [address] Jun, 2014 [facility] [address] [facility] [id number] [place] [address] 23 Jun, 2014 [facility] [address] [id number] [place] [address] 17 Jun, 2014 [facility] [address] [id number] [place] [address] 10 Jun, 2014 [facility] [address] [id number] [place] [address] 15 May, 2015 [facility] [address] [facility] [id number] [place] [address] 13 May, 2015 [facility] [address] [id number] [place] [address] 07 May, 2014 [facility] [address] [id number] [place] [address] 22 Sep, 2014 [facility] [address] [id number] [place] [address] 21 Sep, 2014 [facility] [address] [id number] [place] [address] 21 Sep, 2014 [facility] [address] [id number] [place] [address] 15 Sep, 2014 [facility] [address] [id number] [place] [address] 11 Sep, 2014 [facility] [address] [id number] [place] [address] 09 Sep, 2014 [facility] [address] [id number] [place] [address] 08 Sep, 2014 [facility] [address] [id number] [place] [address] 03 Sep, 2014 [facility] [address] [id number] [place] [address] 02 Sep, 2014 [facility] [address] [id number] [place] [id number] 31 Mar, 2014 [facility] [address] [place] [id number] [place] [address] Mar, [facility] [address] [address] Mar, [facility] [address] [address] Mar, [facility] [address] [address] Mar, [facility] [address] [address] Mar, Diabetes mellitus 250.00 ; COPD (chronic obstructive pulmonary disease) 496 ; Anxiety 300.00 and Arthritis 716.90 [facility] [address] [address] Feb, [facility] [address] [address] Feb, [facility] [address] [address] Feb, [facility] [address] [address] Feb, [facility] [address] [address] Jan, Seborrheic keratosis 702.19 and Nevus 21 6.9 [facility] [address] [address] Jan, [facility] [address] [address] Jan, Routine gynecological examination V72.31 ; Breast cancer screening V76.10 ; Hot flashes 627.2 ; Atypical nevi 216.9 and Constipation 564.00 [facility] [address] [address] Jan, [facility] [address] [address] December, [facility] [address] [address] 05 Dec, 2014 [facility] [address] [facility] [id number] [facility] [address] 14 Nov, 2014 [facility] [address] [facility] [id number] [facility] [place] [address] 13 Nov, 2014 [facility] [address] [id number] [place] [address] 23 Oct, 2014 [facility] [address] [facility] [id number] [place] [id number] 23 Oct, 2014 [facility] [address] [facility] [id number] [place] [address] 18 Oct, 2014 [facility] [address] [id number] [place] [address] 18 Oct, 2014 [facility] [address] [id number] [place] [id number] 17 Oct, 2014 [facility] [address] [id number] [place] [address] 17 Oct, 2014 [facility] [address] [id number] [place] [address] 16 Oct, 2014 [facility] [address] [id number] [place] [address] 16 Oct, 2014 [facility] [address] [id number] [place] [address] 11 Oct, 2014 [facility] [address] [id number] [place] [address] Oct, [facility] [address] [facility] [id number] [place] [address] Sep, [facility] [address] [id number] [place] [address] Sep, [facility] [address] [id number] [place] [address] 19 Sep, 2014 [facility] [address] [id number] [place] [address] 18 Sep, 2014 [facility] [address] [id number] [place] [address] 18 Sep, 2014 [facility] [address] [id number] [place] [address] Sep, [facility] [address] [id number] [place] [address] Sep, [facility] [address] [id number] [place] [address] Aug, [facility] [address] [id number] [place] [address] Aug, [facility] [address] [id number] [place] [address] Aug, [facility] [address] [id number] [place] [address] Aug, [facility] [address] [id number] [place] [address] Aug, [facility] [address] [id number] [place] [address] Aug, [facility] [address] [id number] [place] [address] Jul, [facility] [address] [id number] [place] [address] Jul, [facility] [address] [id number] [place] [address] Jul, [facility] [address] [id number] [place] [address] Jul, [facility] [address] [id number] [place] [address] 08 Jul, 2014 [facility] [address] [id number] [place] [id number] Jun, [facility] [address] [id number] [place] [address] Jun, [facility] [address] [id number] [place] [address] Jun, [facility] [address] [id number] [place] [address] Jun, [facility] [address] [id number] [place] [address] Jun, [facility] [address] [id number] [place] [address] Jun, [facility] [address] [id number] [place] [address] May, [facility] [address] [id number] [place] [address] May, [facility] [address] [id number] [place] [address] May, [facility] [address] [id number] [place] [address] May, [facility] [address] [id number] [place] [address] May, [facility] [address] [id number] [place] [address] May, [facility] [address] [id number] [place] [address] May, [facility] [address] [id number] [place] [address] May, [facility] [address] [id number] [place] [address] May, [facility] [address] [id number] [place] [address] Apr, 2013 [facility] [address] [id number] [place] [address] Apr, 2013 [facility] [address] [id number] [place] [address] Apr, 2013 [facility] [address] [id number] [place] [address] Apr, 2013 [facility] [address] [id number] [facility] [address] Mar, [facility] [address] [id number] [facility] [place] [address] Mar, [facility] [address] [facility] [id number] [facility] [place] [address] Mar, [facility] [address] [facility] [id number] [facility] [place] [address] Mar, [facility] [address] [facility] [id number] [facility] [place] [address] Mar, [facility] [address] [facility] [id number] [facility] [place] [address] Mar, [facility] [address] [facility] [id number] [place] [address] Feb, [facility] [address] [id number] [place] [address] Feb, [facility] [address] [id number] [place] [address] Feb, [facility] [address] [facility] [id number] [facility] [place] [address] Feb, [facility] [address] [facility] [id number] [place] [id number] Feb, [facility] [address] [id number] [place] [address] Feb, [facility] [address] [facility] [id number] [place] [id number] Feb, [facility] [address] [facility] [id number] [place] [address] Feb, [facility] [address] [id number] [place] [address] Feb, [facility] [address] [facility] [id number] [place] [address] Feb, [facility] [address] [id number] [place] [address] Feb, [facility] [address] [id number] [place] [address] Feb, 2013 [facility] [address] [id number] [place] [address] Jan, [facility] [address] [id number] [place] [address] Jan, [facility] [address] [id number] [place] [address] Jan, [facility] [address] [facility] [id number] [place] [address] Jan, [facility] [address] [id number] [place] [address] Jan, [facility] [address] [id number] [place] [address] Jan, [facility] [address] [id number] [place] [address] Jan, [facility] [address] [id number] [place] [address] Jan, [facility] [address] [id number] [place] [address] Jan, [facility] [address] [id number] [place] [address] Jan, [facility] [address] [id number] [place] [address] Jan, [facility] [address] [id number] [place] [address] Jan, [facility] [address] [id number] [place] [address] Jan, [facility] [address] [id number] [place] [address] Jan, [facility] [address] [id number] [place] [address] Jan, [facility] [address] [id number] [place] [address] Jan, [facility] [address] [id number] [facility] [place] [address] Jan, [facility] [address] [id number] [facility] [place] [address] December, [facility] [address] [id number] [facility] [place] [address] December, [facility] [address] [id number] [facility] [place] [address] December, [facility] [address] [id number] [facility] [address] December, [facility] [address] [id number] [place] [address] December, [facility] [address] [id number] [place] [address] December, [facility] [address] [id number] [place] [address] Nov, [facility] [address] [id number] [facility] [place] [address] Nov, [facility] [address] [id number] [place] [address] Nov, [facility] [address] [id number] [place] [address] Nov, [facility] [address] [id number] [place] [address] Nov, [facility] [address] [id number] [place] [address] Nov, [facility] [address] [id number] [place] [address] Nov, [facility] [address] [id number] [place] [address] Nov, [facility] [address] [id number] [place] [address] Nov, [facility] [address] [id number] [facility] [place] [address] 07 Nov, 2013 [facility] [address] [facility] [id number] [place] [address] Nov, [facility] [address] [facility] [id number] [place] [address] Nov, [facility] [address] [id number] [place] [address] Nov, [facility] [address] [facility] [id number] [place] [address] Nov, [facility] [address] [facility] [id number] [place] [address] Nov, [facility] [address] [id number] [place] [address] Nov, [facility] [address] [id number] [place] [address] Oct, [facility] [address] [id number] [place] [address] Oct, [facility] [address] [facility] [id number] [place] [address] Oct, [facility] [address] [id number] [place] [address] Oct, [facility] [address] [id number] [place] [address] Oct, [facility] [address] [id number] [place] [address] Oct, [facility] [address] [facility] [id number] [place] [address] Oct, [facility] [address] [id number] [place] [address] Oct, [facility] [address] [id number] [place] [address] Sep, [facility] [address] [id number] [place] [address] Sep, [facility] [address] [id number] [place] [address] Sep, [facility] [address] [id number] [place] [address] Sep, [facility] [address] [id number] [place] [address] Sep, [facility] [address] [id number] [place] [address] Sep, [facility] [address] [id number] [place] [address] Aug, [facility] [address] [id number] [place] [address] Aug, [facility] [address] [id number] [place] [address] Aug, [facility] [address] [id number] [place] [address] Aug, [facility] [address] [id number] [place] [address] Aug, [facility] [address] [id number] [place] [address] Aug, [facility] [address] [id number] [place] [address] Aug, [facility] [address] [id number] [place] [address] Aug, [facility] [address] [id number] [place] [address] Jul, [facility] [address] [id number] [place] [address] Jul, [facility] [address] [id number] [place] [address] Jul, [facility] [address] [id number] [place] [address] Jul, [facility] [address] [id number] [place] [address] 30 Jul, 2012 [facility] [address] [id number] [place] [address] 30 Jul, 2013 [facility] [address] [id number] [place] [address] Jul, [facility] [address] [id number] [place] [address] Jul, [facility] [address] [id number] [place] [address] Jul, [facility] [address] [id number] [place] [address] 14 Jun, 2013 [facility] [address] [id number] [place] [address] 14 Jun, 2013 [facility] [address] [id number] [place] [address] Jun, [facility] [address] [id number] [place] [address] Jun, [facility] [address] [id number] [place] [address] Jun, [facility] [address] [id number] [place] [address] 07 Jun, 2013 [facility] [address] [id number] [place] [address] 31 May, 2013 [facility] [address] [id number] [place] [address] 31 May, 2013 [facility] [address] [id number] [place] [address] 17 May, 2013 [facility] [address] [id number] [place] [id number] 17 May, 2013 [facility] [address] [id number] [place] [address] 14 May, 2013 [facility] [address] [id number] [place] [address] 14 May, 2013 [facility] [address] [id number] [place] [address] 10 May, 2012 [facility] [address] [id number] [place] [address] 10 May, 2012 [facility] [address] [id number] [place] [address] 07 May, 2012 [facility] [address] [id number] [place] [address] 20 Sep, 2012 [facility] [address] [id number] [place] [address] 19 Sep, 2012 [facility] [place] [facility] [address] [id number] [place] [id number] 12 Apr, 2012 [facility] [place] [facility] [address] [id number] [place] [id number] 24 Sep, 2011 [facility] [place] [facility] [address] [id number] [place] [id number] 21 Sep, 2011 [facility] [place] [facility] [address] [id number] [place] [id number] 21 Sep, 2011 [facility] [place] [facility] [address] [id number] [place] [id number] 14 Sep, 2011 [facility] [place] [facility] [address] [id number] [place] [id number] 10 Sep, 2011 [facility] [place] [facility] [address] [id number] [place] [id number] 06 Sep, 2011 [facility] [place] [facility] [address] [id number] [place] [id number] 04 Sep, 2011 [facility] [place] [facility] [address] [id number] [place] [id number] 31 Mar, 2011 [facility] [place] [facility] [address] [id number] [place] [id number] 28 Mar, 2011 [facility] [place] [facility] [address] [id number] [place] [id number] 27 Mar, 2011 [facility] [place] [facility] [address] [id number] [place] [id number] Mar, [facility] [place] [facility] [address] [facility] [id number] [place] [address] Mar, [facility] [place] [facility] [address] [facility] [id number] [facility] [place] [id number] Mar, [facility] [place] [facility] [address] [id number] [place] [id number] Feb, [facility] [place] [facility] [address] [id number] [place] [id number] Feb, [facility] [place] [facility] [address] [facility] [id number] [facility] [address] Feb, [facility] [place] [facility] [address] [id number] [place] [id number] Jan, [facility] [place] [facility] [address] [id number] [place] [id number] Jan, [facility] [place] [facility] [address] [id number] [place] [id number] Jan, [facility] [place] [facility] [address] [id number] [place] [id number] Jan, [facility] [place] [facility] [address] [id number] [place] [id number] Jan, [facility] [place] [facility] [address] [id number] [place] [id number] Jan, [facility] [place] [facility] [address] [id number] [place] [id number] Jan, [facility] [place] [facility] [address] [id number] [place] [id number] Jan, [facility] [place] [facility] [address] [id number] [place] [id number] December, [facility] [place] [facility] [address] [id number] [place] [id number] December, [facility] [place] [facility] [address] [id number] [place] [id number] December, [facility] [place] [facility] [address] [id number] [place] [id number] December, [facility] [place] [facility] [address] [id number] [place] [id number] December, [facility] [place] [facility] [address] [id number] [place] [id number] December, [facility] [place] [facility] [address] [id number] [place] [id number] 13 Nov, 2011 [facility] [place] [facility] [address] [id number] [place] [id number] 13 Nov, 2011 [facility] [place] [facility] [address] [id number] [place] [id number] Nov, [facility] [place] [facility] [address] [id number] [place] [id number] 13 Nov, 2011 [facility] [place] [facility] [address] [id number] [place] [id number] Nov, [facility] [place] [facility] [address] [id number] [place] [id number] Oct, [facility] [place] [facility] [address] [id number] [place] [id number] Sep, [facility] [place] [facility] [address] [id number] [place] [id number] Aug, [facility] [place] [facility] [address] [id number] [place] [id number] Aug, [facility] [place] [facility] [address] [id number] [place] [id number] Aug, [facility] [place] [facility] [address] [id number] [place] [id number] Aug, [facility] [place] [facility] [address] [id number] [place] [id number] Aug, [facility] [place] [facility] [address] [id number] [place] [id number] Jul, [facility] [place] [facility] [address] [id number] [place] [id number] Jul, [facility] [place] [facility] [address] [id number] [place] [id number] 28 Jun, 2011 [facility] [place] [facility] [address] [id number] [place] [id number] 04 Jun, 2011 [facility] [place] [facility] [address] [id number] [place] [id number] Jun, [facility] [place] [facility] [address] [id number] [place] [id number] May, [facility] [place] [facility] [address] [id number] [place] [id number] May, [facility] [place] [facility] [address] [id number] [place] [id number] 16 Oct, 2010 [facility] [place] [facility] [address] [id number] [place] [id number] Oct, [facility] [place] [facility] [address] [id number] [place] [id number] 29 Jul, 2010 [facility] [place] [facility] [address] [id number] [place] [id number] 08 Jul, 2010 [facility] [place] [facility] [address] [id number] [place] [id number] Jul, [facility] [place] [facility] [address] [id number] [place] [id number] Jul, [facility] [place] [facility] [address] [id number] [place] [id number] Jul, [facility] [place] [facility] [address] [id number] [place] [id number] Jun, [facility] [place] [facility] [address] [id number] [place] [id number] Jun, [facility] [place] [facility] [address] [id number] [place] [address] Jun, [facility] [place] [facility] [address] [id number] [place] [id number] May, [facility] [place] [facility] [address] [id number] [place] [address] 16 Mar, 2010 IMMUNIZATIONS No Known Immunizations SOCIAL HISTORY Never Assessed REASON FOR VISIT PLAN OF CARE VITAL SIGNS Height 60 in 2013-11-27 Weight 230 lbs 2013-11-27 Temperature 98.8 degrees Fahrenheit 2013-11-27 Heart Rate 80 bpm 2013-11-27 Respiratory Rate 30 2013-11-27 Blood pressure systolic 150 mmHg 2013-11-27 Blood pressure diastolic 80 mmHg 2013-11-27 MEDICATIONS Unknown Medications RESULTS No Results PROCEDURES Procedure Date Ordered Result Body Site MEASURE BLOOD OXYGEN LEVEL November 27, 2013 INSTRUCTIONS MEDICATIONS ADMINISTERED No Known Medications MEDICAL (GENERAL) HISTORY Type Description Date Medical History Hypertension Medical History Chronic obstructive pulmonary disease Medical History Type 2 diabetes mellitus Medical History Psychiatric disorders depression Surgical History Hysterectomy total abdominal 1996 Surgical History Orthopedic Surgery Surgical History Scleral buckle Hospitalization History No Hospitalization history informati on
--- OUTSIDE RECORDS SUMMARY | 2019-11-28 22:44 | XMS REPORT ---
Author Author Caren LYLE Organization [facility] Address [address] [place] [address] Care Team Providers Care Film Sound Engineer Name Role Phone LAURIE LYLE Unavailable PROBLEMS Type Condition ICD9-CM Code KKJ78-DC Code Onset Dates Condition S tatus SNOMED Code Problem COPD (chronic obstructive pulmonary disease) J44.9 Active 07773030 Problem Diabetes E11.9 Active 16779687 Problem Diabetic neuropathy E11.40 Active 409737416 Problem Arthritis M19.90 Active 0982388 ALLERGIES No Information ENCOUNTERS Encounter Location Date Diagnosis [place] [address] [address] December, [facility] [address] [address] Aug, Arthritis M19.90 [facility] [address] [address] Jul, [facility] [address] [address] Jul, [facility] [address] [address] Jul, [facility] [address] [address] Jul, [facility] [address] [address] Jul, Diabetes E11.9 ; Diabetic neuropathy E11 .40 ; Arthritis M19.90 and COPD (chronic obstructive pulmonary disease) J44.9 [facility] [address] [address] Jul, [facility] [address] [address] Jun, 2014 [facility] [address] [facility] [id number] [place] [address] 23 Jun, 2014 [facility] [address] [id number] [place] [address] 17 Jun, 2014 [facility] [address] [id number] [place] [address] 10 Jun, 2014 [facility] [address] [id number] [place] [address] 15 May, 2015 [facility] [address] [facility] [id number] [place] [address] 13 May, 2015 [facility] [address] [id number] [place] [address] 07 May, 2014 [facility] [address] [id number] [place] [address] 22 Sep, 2014 [facility] [address] [id number] [place] [address] 21 Sep, 2014 [facility] [address] [id number] [place] [address] 21 Sep, 2014 [facility] [address] [id number] [place] [address] 15 Sep, 2014 [facility] [address] [id number] [place] [address] 11 Sep, 2014 [facility] [address] [id number] [place] [address] 09 Sep, 2014 [facility] [address] [id number] [place] [address] 08 Sep, 2014 [facility] [address] [id number] [place] [address] 03 Sep, 2014 [facility] [address] [id number] [place] [address] 02 Sep, 2014 [facility] [address] [id number] [place] [address] 31 Mar, 2014 [facility] [address] [place] [id number] [place] [address] Mar, [facility] [address] [address] Mar, [facility] [address] [address] Mar, [facility] [address] [address] Mar, [facility] [address] [address] Mar, Diabetes mellitus 250.00 ; COPD (chronic obstructive pulmonary disease) 496 ; Anxiety 300.00 and Arthritis 716.90 [facility] [address] [address] Feb, [facility] [address] [address] Feb, [facility] [address] [address] Feb, [facility] [address] [address] Feb, [facility] [address] [address] Jan, Seborrheic keratosis 702.19 and Nevus 21 6.9 [facility] [address] [address] Jan, [facility] [address] [address] Jan, Routine gynecological examination V72.31 ; Breast cancer screening V76.10 ; Hot flashes 627.2 ; Atypical nevi 216.9 and Constipation 564.00 [facility] [address] [address] Jan, [facility] [address] [address] December, [facility] [address] [address] 05 Dec, 2014 [facility] [address] [facility] [id number] [place] [address] 14 Nov, 2014 [facility] [address] [facility] [id number] [place] [address] 13 Nov, 2014 [facility] [address] [id number] [place] [address] 23 Oct, 2014 [facility] [address] [facility] [id number] [place] [address] 23 Oct, 2014 [facility] [address] [facility] [id number] [place] [address] 18 Oct, 2014 [facility] [address] [id number] [place] [address] 18 Oct, 2014 [facility] [address] [id number] [place] [address] 17 Oct, 2014 [facility] [address] [id number] [place] [address] 17 Oct, 2014 [facility] [address] [id number] [place] [address] 16 Oct, 2014 [facility] [address] [id number] [place] [address] 16 Oct, 2014 [facility] [address] [id number] [place] [address] 11 Oct, 2014 [facility] [address] [id number] [place] [address] Oct, [facility] [address] [facility] [id number] [place] [address] Sep, [facility] [address] [id number] [place] [address] Sep, [facility] [address] [id number] [place] [address] 19 Sep, 2014 [facility] [address] [id number] [place] [address] 18 Sep, 2014 [facility] [address] [id number] [place] [address] 18 Sep, 2014 [facility] [address] [id number] [place] [address] Sep, [facility] [address] [id number] [place] [address] Sep, [facility] [address] [id number] [place] [address] Aug, [facility] [address] [id number] [place] [address] Aug, [facility] [address] [id number] [place] [address] Aug, [facility] [address] [id number] [place] [address] Aug, [facility] [address] [id number] [place] [address] Aug, [facility] [address] [id number] [place] [address] Aug, [facility] [address] [id number] [place] [address] Jul, [facility] [address] [id number] [place] [address] Jul, [facility] [address] [id number] [place] [address] Jul, [facility] [address] [id number] [place] [address] Jul, [facility] [address] [id number] [place] [address] 08 Jul, 2014 [facility] [address] [id number] [place] [address] Jun, [facility] [address] [id number] [place] [address] Jun, [facility] [address] [id number] [place] [address] Jun, [facility] [address] [id number] [place] [address] Jun, [facility] [address] [id number] [place] [address] Jun, [facility] [address] [id number] [place] [address] Jun, [facility] [address] [id number] [place] [address] May, [facility] [address] [id number] [place] [address] May, [facility] [address] [id number] [place] [address] May, [facility] [address] [id number] [place] [address] May, [facility] [address] [id number] [place] [address] May, [facility] [address] [id number] [place] [address] May, [facility] [address] [id number] [place] [address] May, [facility] [address] [id number] [place] [address] May, [facility] [address] [id number] [place] [address] May, [facility] [address] [id number] [place] [address] Apr, 2013 [facility] [address] [id number] [place] [address] Apr, 2013 [facility] [address] [id number] [place] [address] Apr, 2013 [facility] [address] [id number] [place] [address] Apr, 2013 [facility] [address] [id number] [place] [address] Mar, [facility] [address] [id number] [place] [address] Mar, [facility] [address] [facility] [id number] [place] [address] Mar, [facility] [address] [facility] [id number] [place] [address] Mar, [facility] [address] [facility] [id number] [place] [address] Mar, [facility] [address] [facility] [id number] [place] [address] Mar, [facility] [address] [facility] [id number] [place] [address] Feb, [facility] [address] [id number] [place] [address] Feb, [facility] [address] [id number] [place] [address] Feb, [facility] [address] [facility] [id number] [place] [address] Feb, [facility] [address] [facility] [id number] [place] [address] Feb, [facility] [address] [id number] [place] [address] Feb, [facility] [address] [facility] [id number] [place] [address] Feb, [facility] [address] [facility] [id number] [place] [address] Feb, [facility] [address] [id number] [place] [address] Feb, [facility] [address] [facility] [id number] [place] [address] Feb, [facility] [address] [id number] [place] [address] Feb, [facility] [address] [id number] [place] [address] Feb, 2013 [facility] [address] [id number] [place] [address] Jan, [facility] [address] [id number] [place] [address] Jan, [facility] [address] [id number] [place] [address] Jan, [facility] [address] [facility] [id number] [place] [address] Jan, [facility] [address] [id number] [place] [address] Jan, [facility] [address] [id number] [place] [address] Jan, [facility] [address] [id number] [place] [address] Jan, [facility] [address] [id number] [place] [address] Jan, [facility] [address] [id number] [place] [address] Jan, [facility] [address] [id number] [place] [address] Jan, [facility] [address] [id number] [place] [address] Jan, [facility] [address] [id number] [place] [address] Jan, [facility] [address] [id number] [place] [address] Jan, [facility] [address] [id number] [place] [address] Jan, [facility] [address] [id number] [place] [address] Jan, [facility] [address] [id number] [place] [address] Jan, [facility] [address] [id number] [place] [address] Jan, [facility] [address] [id number] [place] [address] December, [facility] [address] [id number] [place] [address] December, [facility] [address] [id number] [place] [address] December, [facility] [address] [id number] [place] [address] December, [facility] [address] [id number] [place] [address] December, [facility] [address] [id number] [place] [address] December, [facility] [address] [id number] [place] [address] Nov, [facility] [address] [id number] [place] [address] Nov, [facility] [address] [id number] [place] [address] Nov, [facility] [address] [id number] [place] [address] Nov, [facility] [address] [id number] [place] [address] Nov, [facility] [address] [id number] [place] [address] Nov, [facility] [address] [id number] [place] [address] Nov, [facility] [address] [id number] [place] [address] Nov, [facility] [address] [id number] [place] [address] Nov, [facility] [address] [id number] [place] [address] 07 Nov, 2013 [facility] [address] [facility] [id number] [place] [address] Nov, [facility] [address] [facility] [id number] [place] [address] Nov, [facility] [address] [id number] [place] [address] Nov, [facility] [address] [facility] [id number] [place] [address] Nov, [facility] [address] [facility] [id number] [place] [address] Nov, [facility] [address] [id number] [place] [address] Nov, [facility] [address] [id number] [place] [address] Oct, [facility] [address] [id number] [place] [address] Oct, [facility] [address] [facility] [id number] [place] [address] Oct, [facility] [address] [id number] [place] [address] Oct, [facility] [address] [id number] [place] [address] Oct, [facility] [address] [id number] [place] [address] Oct, [facility] [address] [facility] [id number] [place] [address] Oct, [facility] [address] [id number] [place] [address] Oct, [facility] [address] [id number] [place] [address] Sep, [facility] [address] [id number] [place] [address] Sep, [facility] [address] [id number] [place] [address] Sep, [facility] [address] [id number] [place] [address] Sep, [facility] [address] [id number] [place] [address] Sep, [facility] [address] [id number] [place] [address] Sep, [facility] [address] [id number] [place] [address] Aug, [facility] [address] [id number] [place] [address] Aug, [facility] [address] [id number] [place] [address] Aug, [facility] [address] [id number] [place] [address] Aug, [facility] [address] [id number] [place] [address] Aug, [facility] [address] [id number] [place] [address] Aug, [facility] [address] [id number] [place] [address] Aug, [facility] [address] [id number] [place] [address] Aug, [facility] [address] [id number] [place] [address] Jul, [facility] [address] [id number] [place] [address] Jul, [facility] [address] [id number] [place] [address] Jul, [facility] [address] [id number] [place] [address] Jul, [facility] [address] [id number] [place] [address] 30 Jul, 2012 [facility] [address] [id number] [place] [address] 30 Jul, 2013 [facility] [address] [id number] [place] [address] Jul, [facility] [address] [id number] [place] [address] Jul, [facility] [address] [id number] [place] [address] Jul, [facility] [address] [id number] [place] [address] 14 Jun, 2013 [facility] [address] [id number] [place] [address] 14 Jun, 2013 [facility] [id number] [place] [address] Jun, [facility] [address] [id number] [place] [address] Jun, [facility] [address] [id number] [place] [address] Jun, [facility] [address] [id number] [place] [address] 07 Jun, 2013 [facility] [address] [id number] [place] [address] 31 May, 2013 [facility] [address] [id number] [place] [address] 31 May, 2013 [facility] [address] [id number] [place] [address] 17 May, 2013 [facility] [id number] [place] [address] 17 May, 2013 [facility] [place] [facility] [address] [id number] [place] [address] 14 May, 2013 [facility] [place] [facility] [address] [id number] [place] [address] 14 May, 2013 [facility] [place] [facility] [address] [id number] [place] [address] 10 May, 2012 [facility] [place] [facility] [address] [id number] [place] [address] 10 May, 2012 [facility] [place] [facility] [address] [id number] [place] [address] 07 May, 2012 [facility] [place] [facility] [address] [id number] [place] [address] 20 Sep, 2012 [facility] [place] [facility] [address] [id number] [place] [address] 19 Sep, 2012 [facility] [place] [facility] [address] [id number] [place] [address] 12 Apr, 2012 [facility] [place] [facility] [address] [id number] [place] [address] 24 Sep, 2011 [facility] [place] [facility] [address] [id number] [place] [address] 21 Sep, 2011 [facility] [place] [facility] [address] [id number] [place] [address] 21 Sep, 2011 [facility] [place] [facility] [address] [id number] [place] [address] 14 Sep, 2011 [facility] [place] [facility] [address] [id number] [place] [address] 10 Sep, 2011 [facility] [place] [facility] [address] [id number] [place] [address] 06 Sep, 2011 [facility] [place] [facility] [address] [id number] [place] [address] 04 Sep, 2011 [facility] [place] [facility] [address] [id number] [place] [address] 31 Mar, 2011 [facility] [place] [facility] [address] [id number] [place] [address] 28 Mar, 2011 [facility] [place] [facility] [address] [id number] [place] [address] 27 Mar, 2011 [facility] [place] [facility] [address] [id number] [place] [address] Mar, [facility] [place] [facility] [address] [facility] [id number] [place] [address] Mar, [facility] [place] [facility] [address] [facility] [id number] [place] [address] Mar, [facility] [place] [facility] [address] [id number] [place] [address] Feb, [facility] [place] [facility] [address] [id number] [place] [address] Feb, [facility] [place] [facility] [address] [facility] [id number] [place] [address] Feb, [facility] [place] [facility] [address] [id number] [place] [address] Jan, [facility] [place] [facility] [address] [id number] [place] [address] Jan, [facility] [place] [facility] [address] [id number] [place] [address] Jan, [facility] [place] [facility] [address] [id number] [place] [address] Jan, [facility] [place] [facility] [address] [id number] [place] [address] Jan, [facility] [place] [facility] [address] [id number] [place] [address] Jan, [facility] [place] [facility] [address] [id number] [place] [address] Jan, [facility] [place] [facility] [address] [id number] [place] [address] Jan, [facility] [place] [facility] [address] [id number] [place] [address] December, [facility] [place] [facility] [address] [id number] [place] [address] December, [facility] [place] [facility] [address] [id number] [place] [address] December, [facility] [place] [facility] [address] [id number] [place] [address] December, [facility] [place] [facility] [address] [id number] [place] [address] December, [facility] [place] [facility] [address] [id number] [place] [address] December, [facility] [place] [facility] [address] [id number] [place] [address] 13 Nov, 2011 [facility] [place] [facility] [address] [id number] [place] [address] 13 Nov, 2011 [facility] [place] [facility] [address] [id number] [place] [address] Nov, [facility] [place] [facility] [address] [id number] [place] [address] 13 Nov, 2011 [facility] [place] [facility] [address] [id number] [place] [address] Nov, [facility] [address] [id number] [place] [address] Oct, [facility] [place] [address] [id number] [place] [address] Sep, [facility] [place] [address] [id number] [place] [address] Aug, [facility] [place] [facility] [address] [id number] [place] [address] Aug, [facility] [place] [address] [id number] [place] [address] Aug, [facility] [place] [address] [id number] [place] [address] Aug, [facility] [place] [address] [id number] [place] [address] Aug, [facility] [address] [id number] [place] [address] Jul, [facility] [address] [id number] [place] [address] Jul, [facility] [address] [id number] [place] [address] 28 Jun, 2011 [facility] [address] [id number] [place] [address] 04 Jun, 2011 [facility] [address] [id number] [place] [address] Jun, [facility] [address] [id number] [place] [address] May, [facility] [address] [id number] [place] [address] May, [facility] [address] [id number] [place] [address] 16 Oct, 2010 [facility] [address] [id number] [place] [address] Oct, [facility] [address] [id number] [place] [address] 29 Jul, 2010 [facility] [address] [id number] [place] [address] 08 Jul, 2010 [facility] [address] [id number] [place] [address] Jul, [facility] [address] [id number] [place] [address] Jul, [facility] [address] [id number] [place] [address] Jul, [facility] [address] [id number] [place] [address] Jun, [facility] [address] [id number] [place] [address] Jun, [facility] [address] [id number] [place] [address] Jun, [facility] [address] [id number] [place] [address] May, [facility] [address] [id number] [place] [address] 16 Mar, 2010 IMMUNIZATIONS No Known Immunizations [...]
--- OUTSIDE RECORDS SUMMARY | 2019-11-28 22:45 | XMS REPORT ---
Author Author Caren LYLE Organization [facility] Address [address] [place] [address] Care Team Providers Care Director Of Managed Care Name Role Phone LAURIE LYLE Unavailable PROBLEMS Type Condition ICD9-CM Code OOL94-LC Code Onset Dates Condition S tatus SNOMED Code Problem COPD (chronic obstructive pulmonary disease) J44.9 Active 29450702 Problem Diabetes E11.9 Active 64520479 Problem Diabetic neuropathy E11.40 Active 783562088 Problem Arthritis M19.90 Active [id number] ALLERGIES No Information ENCOUNTERS Encounter Location Date Diagnosis [place] [address] [address] December, [facility] [address] [address] Aug, Arthritis M19.90 [facility] [address] [address] Jul, [facility] [address] [address] Jul, [facility] [address] [address] Jul, [facility] [address] [address] Jul, [facility] [address] [address] Jul, Diabetes E11.9 ; Diabetic neuropathy E11 .40 ; Arthritis M19.90 and COPD (chronic obstructive pulmonary disease) J44.9 [facility] [address] [address] Jul, [facility] [address] [address] Jun, 2014 [facility] [address] [facility] [id number] [place] [address] 23 Jun, 2014 [facility] [address] [id number] [place] [address] 17 Jun, 2014 [facility] [address] [id number] [place] [address] 10 Jun, 2014 [facility] [address] [id number] [place] [address] 15 May, 2015 [facility] [address] [facility] [id number] [place] [address] 13 May, 2015 [facility] [address] [id number] [place] [address] 07 May, 2014 [facility] [address] [id number] [place] [address] 22 Sep, 2014 [facility] [address] [id number] [place] [address] 21 Sep, 2014 [facility] [address] [id number] [place] [address] 21 Sep, 2014 [facility] [address] [id number] [place] [address] 15 Sep, 2014 [facility] [address] [id number] [place] [address] 11 Sep, 2014 [facility] [address] [id number] [place] [address] 09 Sep, 2014 [facility] [address] [id number] [place] [address] 08 Sep, 2014 [facility] [address] [id number] [place] [address] 03 Sep, 2014 [facility] [address] [id number] [place] [address] 02 Sep, 2014 [facility] [address] [id number] [place] [address] 31 Mar, 2014 [facility] [address] [place] [id number] [place] [address] Mar, [facility] [address] [address] Mar, [facility] [address] [address] Mar, [facility] [address] [address] Mar, [facility] [address] [address] Mar, Diabetes mellitus 250.00 ; COPD (chronic obstructive pulmonary disease) 496 ; Anxiety 300.00 and Arthritis 716.90 [facility] [address] [address] Feb, [facility] [address] [address] Feb, [facility] [address] [address] Feb, [facility] [address] [address] Feb, [facility] [address] [address] Jan, Seborrheic keratosis 702.19 and Nevus 21 6.9 [facility] [address] [address] Jan, [facility] [address] [address] Jan, Routine gynecological examination V72.31 ; Breast cancer screening V76.10 ; Hot flashes 627.2 ; Atypical nevi 216.9 and Constipation 564.00 [facility] [address] [address] Jan, [facility] [address] [address] December, [facility] [address] [address] 05 Dec, 2014 [facility] [address] [facility] [id number] [facility] [place] [address] 14 Nov, 2014 [facility] [address] [facility] [id number] [facility] [place] [address] 13 Nov, 2014 [facility] [address] [id number] [place] [address] 23 Oct, 2014 [facility] [address] [facility] [id number] [place] [address] 23 Oct, 2014 [facility] [address] [facility] [id number] [place] [address] 18 Oct, 2014 [facility] [address] [id number] [place] [address] 18 Oct, 2014 [facility] [address] [id number] [place] [address] 17 Oct, 2014 [facility] [address] [id number] [place] [address] 17 Oct, 2014 [facility] [address] [id number] [place] [address] 16 Oct, 2014 [facility] [address] [id number] [place] [address] 16 Oct, 2014 [facility] [address] [id number] [place] [address] 11 Oct, 2014 [facility] [address] [id number] [place] [address] Oct, [facility] [address] [facility] [id number] [place] [address] Sep, [facility] [address] [id number] [place] [address] Sep, [facility] [address] [id number] [place] [address] 19 Sep, 2014 [facility] [address] [id number] [place] [address] 18 Sep, 2014 [facility] [address] [id number] [place] [address] 18 Sep, 2014 [facility] [address] [id number] [place] [address] Sep, [facility] [address] [id number] [place] [address] Sep, [facility] [address] [id number] [place] [address] Aug, [facility] [address] [id number] [place] [address] Aug, [facility] [address] [id number] [place] [address] Aug, [facility] [address] [id number] [place] [address] Aug, [facility] [address] [id number] [place] [address] Aug, [facility] [address] [id number] [place] [address] Aug, [facility] [address] [id number] [place] [address] Jul, [facility] [address] [id number] [place] [address] Jul, [facility] [address] [id number] [place] [address] Jul, [facility] [address] [id number] [place] [address] Jul, [facility] [address] [id number] [place] [address] 08 Jul, 2014 [facility] [address] [id number] [place] [address] Jun, [facility] [address] [id number] [place] [address] Jun, [facility] [address] [id number] [place] [address] Jun, [facility] [address] [id number] [place] [address] Jun, [facility] [address] [id number] [place] [address] Jun, [facility] [address] [id number] [place] [address] Jun, [facility] [address] [id number] [place] [address] May, [facility] [address] [id number] [place] [address] May, [facility] [address] [id number] [place] [address] May, [facility] [address] [id number] [place] [address] May, [facility] [address] [id number] [place] [address] May, [facility] [address] [id number] [place] [address] May, [facility] [address] [id number] [place] [address] May, [facility] [address] [id number] [place] [address] May, [facility] [address] [id number] [place] [address] May, [facility] [address] [id number] [place] [address] Apr, 2013 [facility] [address] [id number] [place] [address] Apr, 2013 [facility] [address] [id number] [place] [address] Apr, 2013 [facility] [address] [id number] [place] [address] Apr, 2013 [facility] [address] [id number] [facility] [address] Mar, [facility] [address] [id number] [facility] [address] Mar, [facility] [address] [facility] [id number] [facility] [address] Mar, [facility] [address] [facility] [id number] [facility] [address] Mar, [facility] [address] [facility] [id number] [facility] [address] Mar, [facility] [address] [facility] [id number] [facility] [place] [address] Mar, [facility] [address] [facility] [id number] [place] [address] Feb, [facility] [address] [id number] [place] [address] Feb, [facility] [address] [id number] [place] [address] Feb, [facility] [address] [facility] [id number] [facility] [address] Feb, [facility] [address] [facility] [id number] [place] [address] Feb, [facility] [address] [id number] [place] [address] Feb, [facility] [address] [facility] [id number] [place] [address] Feb, [facility] [address] [facility] [id number] [place] [address] Feb, [facility] [address] [id number] [place] [address] Feb, [facility] [address] [facility] [id number] [place] [address] Feb, [facility] [address] [id number] [place] [address] Feb, [facility] [address] [id number] [place] [address] Feb, 2013 [facility] [address] [id number] [place] [address] Jan, [facility] [address] [id number] [place] [address] Jan, [facility] [address] [id number] [place] [address] Jan, [facility] [address] [facility] [id number] [place] [address] Jan, [facility] [address] [id number] [place] [address] Jan, [facility] [address] [id number] [place] [address] Jan, [facility] [address] [id number] [place] [address] Jan, [facility] [address] [id number] [place] [address] Jan, [facility] [address] [id number] [place] [address] Jan, [facility] [address] [id number] [place] [address] Jan, [facility] [address] [id number] [place] [address] Jan, [facility] [address] [id number] [place] [address] Jan, [facility] [address] [id number] [place] [address] Jan, [facility] [address] [id number] [place] [address] Jan, [facility] [address] [id number] [place] [address] Jan, [facility] [address] [id number] [place] [address] Jan, [facility] [address] [id number] [facility] [address] Jan, [facility] [address] [id number] [facility] [address] December, [facility] [address] [id number] [facility] [place] [address] December, [facility] [address] [id number] [facility] [place] [address] December, [facility] [address] [id number] [facility] [place] [address] December, [facility] [address] [id number] [place] [address] December, [facility] [address] [id number] [place] [address] December, [facility] [address] [id number] [place] [address] Nov, [facility] [address] [id number] [facility] [place] [address] Nov, [facility] [address] [id number] [place] [address] Nov, [facility] [address] [id number] [place] [address] Nov, [facility] [address] [id number] [place] [address] Nov, [facility] [address] [id number] [place] [address] Nov, [facility] [address] [id number] [place] [address] Nov, [facility] [address] [id number] [place] [address] Nov, [facility] [address] [id number] [place] [address] Nov, [facility] [address] [id number] [facility] [address] 07 Nov, 2013 [facility] [address] [facility] [id number] [place] [address] Nov, [facility] [address] [facility] [id number] [place] [address] Nov, [facility] [address] [id number] [place] [address] Nov, [facility] [address] [facility] [id number] [place] [address] Nov, [facility] [address] [facility] [id number] [place] [address] Nov, [facility] [address] [id number] [place] [address] Nov, [facility] [address] [id number] [place] [address] Oct, [facility] [address] [id number] [place] [address] Oct, [facility] [address] [facility] [id number] [place] [address] Oct, [facility] [address] [id number] [place] [address] Oct, [facility] [address] [id number] [place] [address] Oct, [facility] [address] [id number] [place] [address] Oct, [facility] [address] [facility] [id number] [place] [address] Oct, [facility] [address] [id number] [place] [address] Oct, [facility] [address] [id number] [place] [address] Sep, [facility] [address] [id number] [place] [address] Sep, [facility] [address] [id number] [place] [address] Sep, [facility] [address] [id number] [place] [address] Sep, [facility] [address] [id number] [place] [address] Sep, [facility] [address] [id number] [place] [address] Sep, [facility] [address] [id number] [place] [address] Aug, [facility] [address] [id number] [place] [address] Aug, [facility] [address] [id number] [place] [address] Aug, [facility] [address] [id number] [place] [address] Aug, [facility] [address] [id number] [place] [address] Aug, [facility] [address] [id number] [place] [address] Aug, [facility] [address] [id number] [place] [address] Aug, [facility] [address] [id number] [place] [address] Aug, [facility] [address] [id number] [place] [address] Jul, [facility] [address] [id number] [place] [address] Jul, [facility] [address] [id number] [place] [address] Jul, [facility] [address] [id number] [place] [address] Jul, [facility] [address] [id number] [place] [address] 30 Jul, 2012 [facility] [address] [id number] [place] [address] 30 Jul, 2013 [facility] [address] [id number] [place] [address] Jul, [facility] [address] [id number] [place] [address] Jul, [facility] [address] [id number] [place] [address] Jul, [facility] [address] [id number] [place] [address] 14 Jun, 2013 [facility] [address] [id number] [place] [address] 14 Jun, 2013 [facility] [id number] [place] [address] Jun, [facility] [id number] [place] [address] Jun, [facility] [address] [id number] [place] [address] Jun, [facility] [address] [id number] [place] [address] 07 Jun, 2013 [facility] [address] [id number] [place] [address] 31 May, 2013 [facility] [address] [id number] [place] [address] 31 May, 2013 [facility] [address] [id number] [place] [address] 17 May, 2013 [facility] [id number] [place] [address] 17 May, 2013 [facility] [address] [id number] [place] [address] 14 May, 2013 [facility] [address] [id number] [place] [address] 14 May, 2013 [facility] [id number] [place] [address] 10 May, 2012 [facility] [address] [id number] [place] [address] 10 May, 2012 [facility] [address] [id number] [place] [address] 07 May, 2012 [facility] [address] [id number] [place] [address] 20 Sep, 2012 [facility] [address] [id number] [place] [address] 19 Sep, 2012 [facility] [address] [id number] [place] [address] 12 Apr, 2012 [facility] [address] [id number] [place] [address] 24 Sep, 2011 [facility] [address] [id number] [place] [address] 21 Sep, 2011 [facility] [address] [id number] [place] [address] 21 Sep, 2011 [facility] [address] [id number] [place] [address] 14 Sep, 2011 [facility] [address] [id number] [place] [address] 10 Sep, 2011 [facility] [address] [id number] [place] [address] 06 Sep, 2011 [facility] [address] [id number] [place] [address] 04 Sep, 2011 [facility] [place] [facility] [address] [id number] [place] [address] 31 Mar, 2011 [facility] [place] [facility] [address] [id number] [place] [address] 28 Mar, 2011 [facility] [place] [facility] [address] [id number] [place] [address] 27 Mar, 2011 [facility] [place] [facility] [address] [id number] [place] [address] Mar, [facility] [place] [facility] [address] [facility] [id number] [place] [address] Mar, [facility] [place] [facility] [address] [facility] [id number] [facility] [place] [address] Mar, [facility] [place] [facility] [address] [id number] [place] [address] Feb, [facility] [place] [facility] [address] [id number] [place] [address] Feb, [facility] [place] [facility] [address] [facility] [id number] [facility] [place] [address] Feb, [facility] [place] [facility] [address] [id number] [place] [address] Jan, [facility] [place] [facility] [address] [id number] [place] [address] Jan, [facility] [place] [facility] [address] [id number] [place] [address] Jan, [facility] [place] [facility] [address] [id number] [place] [address] Jan, [facility] [place] [facility] [address] [id number] [place] [address] Jan, [facility] [place] [facility] [address] [id number] [place] [address] Jan, [facility] [place] [facility] [address] [id number] [place] [address] Jan, [facility] [place] [facility] [address] [id number] [place] [address] Jan, [facility] [place] [facility] [address] [id number] [place] [address] December, [facility] [place] [facility] [address] [id number] [place] [address] December, [facility] [place] [facility] [address] [id number] [place] [address] December, [facility] [place] [facility] [address] [id number] [place] [address] December, [facility] [place] [facility] [address] [id number] [place] [address] December, [facility] [place] [facility] [address] [id number] [place] [address] December, [facility] [place] [facility] [address] [id number] [place] [address] 13 Nov, 2011 [facility] [place] [facility] [address] [id number] [place] [address] 13 Nov, 2011 [facility] [place] [facility] [address] [id number] [place] [address] Nov, [facility] [place] [facility] [address] [id number] [place] [address] 13 Nov, 2011 [facility] [place] [facility] [address] [id number] [place] [address] Nov, [facility] [place] [facility] [address] [id number] [place] [address] Oct, [facility] [place] [facility] [address] [id number] [place] [address] Sep, [facility] [place] [facility] [address] [id number] [place] [address] Aug, [facility] [place] [facility] [address] [id number] [place] [address] Aug, [facility] [place] [facility] [address] [id number] [place] [address] Aug, [facility] [place] [facility] [address] [id number] [place] [address] Aug, [facility] [place] [facility] [address] [id number] [place] [address] Aug, [facility] [place] [facility] [address] [id number] [place] [address] Jul, [facility] [place] [facility] [address] [id number] [place] [address] Jul, [facility] [place] [facility] [address] [id number] [place] [address] 28 Jun, 2011 [facility] [place] [facility] [address] [id number] [place] [address] 04 Jun, 2011 [facility] [place] [facility] [address] [id number] [place] [address] Jun, [facility] [place] [facility] [address] [id number] [place] [address] May, [facility] [place] [facility] [address] [id number] [place] [address] May, [facility] [place] [facility] [address] [id number] [place] [address] 16 Oct, 2010 [facility] [place] [facility] [address] [id number] [place] [address] Oct, [facility] [place] [facility] [address] [id number] [place] [address] 29 Jul, 2010 [facility] [place] [facility] [address] [id number] [place] [address] 08 Jul, 2010 [facility] [place] [facility] [address] [id number] [place] [address] Jul, [facility] [place] [facility] [address] [id number] [place] [address] Jul, [facility] [place] [facility] [address] [id number] [place] [address] Jul, [facility] [place] [facility] [address] [id number] [place] [address] Jun, [facility] [place] [facility] [address] [id number] [place] [address] Jun, [facility] [place] [facility] [address] [id number] [place] [address] Jun, [facility] [place] [facility] [address] [id number] [place] [address] May, [facility] [place] [facility] [address] [id number] [place] [address] 16 Mar, 2010 IMMUNIZATIONS No Known Immunizations [...]
--- OUTSIDE RECORDS SUMMARY | 2019-11-28 22:45 | XMS REPORT ---
Author Author Caren LYLE Organization [facility] Address [address] [place] [address] Care Team Providers Care Scrum Coach Name Role Phone LAURIE LYLE Unavailable PROBLEMS Type Condition ICD9-CM Code NMJ13-QM Code Onset Dates Condition S tatus SNOMED Code Problem COPD (chronic obstructive pulmonary disease) J44.9 Active 10582902 Problem Diabetes E11.9 Active 78200101 Problem Diabetic neuropathy E11.40 Active 477965897 Problem Arthritis M19.90 Active 8282429 ALLERGIES No Information ENCOUNTERS Encounter Location Date Diagnosis [place] [address] [address] December, [facility] [address] [address] Aug, Arthritis M19.90 [facility] [address] [address] Jul, [facility] [address] [address] Jul, [facility] [address] [address] Jul, [facility] [address] [address] Jul, [facility] [address] [address] Jul, Diabetes E11.9 ; Diabetic neuropathy E11 .40 ; Arthritis M19.90 and COPD (chronic obstructive pulmonary disease) J44.9 [facility] [address] [address] Jul, [facility] [address] [address] Jun, 2014 [facility] [address] [facility] [id number] [place] [address] 23 Jun, 2014 [facility] [address] [id number] [place] [address] 17 Jun, 2014 [facility] [address] [id number] [place] [address] 10 Jun, 2014 [facility] [address] [id number] [place] [address] 15 May, 2015 [facility] [address] [facility] [id number] [place] [address] 13 May, 2015 [facility] [address] [id number] [place] [address] 07 May, 2014 [facility] [address] [id number] [place] [address] 22 Sep, 2014 [facility] [address] [id number] [place] [address] 21 Sep, 2014 [facility] [address] [id number] [place] [address] 21 Sep, 2014 [facility] [address] [id number] [place] [address] 15 Sep, 2014 [facility] [address] [id number] [place] [address] 11 Sep, 2014 [facility] [address] [id number] [place] [address] 09 Sep, 2014 [facility] [address] [id number] [place] [address] 08 Sep, 2014 [facility] [address] [id number] [place] [address] 03 Sep, 2014 [facility] [address] [id number] [place] [address] 02 Sep, 2014 [facility] [address] [id number] [place] [address] 31 Mar, 2014 [facility] [address] [place] [id number] [place] [address] Mar, [facility] [address] [address] Mar, [facility] [address] [address] Mar, [facility] [address] [address] Mar, [facility] [address] [address] Mar, Diabetes mellitus 250.00 ; COPD (chronic obstructive pulmonary disease) 496 ; Anxiety 300.00 and Arthritis 716.90 [facility] [address] [address] Feb, [facility] [address] [address] Feb, [facility] [address] [address] Feb, [facility] [address] [address] Feb, [facility] [address] [address] Jan, Seborrheic keratosis 702.19 and Nevus 21 6.9 [facility] [address] [address] Jan, [facility] [address] [address] Jan, Routine gynecological examination V72.31 ; Breast cancer screening V76.10 ; Hot flashes 627.2 ; Atypical nevi 216.9 and Constipation 564.00 [facility] [address] [address] Jan, [facility] [address] [address] December, [facility] [address] [address] 05 Dec, 2014 [facility] [address] [facility] [id number] [facility] [address] 14 Nov, 2014 [facility] [address] [facility] [id number] [facility] [address] 13 Nov, 2014 [facility] [address] [id number] [place] [address] 23 Oct, 2014 [facility] [address] [facility] [id number] [place] [address] 23 Oct, 2014 [facility] [address] [facility] [id number] [place] [address] 18 Oct, 2014 [facility] [address] [id number] [place] [address] 18 Oct, 2014 [facility] [address] [id number] [place] [address] 17 Oct, 2014 [facility] [address] [id number] [place] [address] 17 Oct, 2014 [facility] [address] [id number] [place] [address] 16 Oct, 2014 [facility] [address] [id number] [place] [address] 16 Oct, 2014 [facility] [address] [id number] [place] [address] 11 Oct, 2014 [facility] [address] [id number] [place] [address] Oct, [facility] [address] [facility] [id number] [place] [address] Sep, [facility] [address] [id number] [place] [address] Sep, [facility] [address] [id number] [place] [address] 19 Sep, 2014 [facility] [address] [id number] [place] [address] 18 Sep, 2014 [facility] [address] [id number] [place] [address] 18 Sep, 2014 [facility] [address] [id number] [place] [address] Sep, [facility] [address] [id number] [place] [address] Sep, [facility] [address] [id number] [place] [address] Aug, [facility] [address] [id number] [place] [address] Aug, [facility] [address] [id number] [place] [address] Aug, [facility] [address] [id number] [place] [address] Aug, [facility] [address] [id number] [place] [address] Aug, [facility] [address] [id number] [place] [address] Aug, [facility] [address] [id number] [place] [address] Jul, [facility] [address] [id number] [place] [address] Jul, [facility] [address] [id number] [place] [address] Jul, [facility] [address] [id number] [place] [address] Jul, [facility] [address] [id number] [place] [address] 08 Jul, 2014 [facility] [address] [id number] [place] [address] Jun, [facility] [address] [id number] [place] [address] Jun, [facility] [address] [id number] [place] [address] Jun, [facility] [address] [id number] [place] [address] Jun, [facility] [address] [id number] [place] [address] Jun, [facility] [address] [id number] [place] [address] Jun, [facility] [address] [id number] [place] [address] May, [facility] [address] [id number] [place] [address] May, [facility] [address] [id number] [place] [address] May, [facility] [address] [id number] [place] [address] May, [facility] [address] [id number] [place] [address] May, [facility] [address] [id number] [place] [address] May, [facility] [address] [id number] [place] [address] May, [facility] [address] [id number] [place] [address] May, [facility] [address] [id number] [place] [address] May, [facility] [address] [id number] [place] [address] Apr, 2013 [facility] [address] [id number] [place] [address] Apr, 2013 [facility] [address] [id number] [place] [address] Apr, 2013 [facility] [address] [id number] [place] [address] Apr, 2013 [facility] [address] [id number] [facility] [address] Mar, [facility] [address] [id number] [facility] [address] Mar, [facility] [address] [facility] [id number] [facility] [address] Mar, [facility] [address] [facility] [id number] [facility] [address] Mar, [facility] [address] [facility] [id number] [facility] [address] Mar, [facility] [address] [facility] [id number] [facility] [address] Mar, [facility] [address] [facility] [id number] [place] [address] Feb, [facility] [address] [id number] [place] [address] Feb, [facility] [address] [id number] [place] [address] Feb, [facility] [address] [facility] [id number] [facility] [address] Feb, [facility] [address] [facility] [id number] [place] [address] Feb, [facility] [address] [id number] [place] [address] Feb, [facility] [address] [facility] [id number] [place] [address] Feb, [facility] [address] [facility] [id number] [place] [address] Feb, [facility] [address] [id number] [place] [address] Feb, [facility] [address] [facility] [id number] [place] [address] Feb, [facility] [address] [id number] [place] [address] Feb, [facility] [address] [id number] [place] [address] Feb, 2013 [facility] [address] [id number] [place] [address] Jan, [facility] [address] [id number] [place] [address] Jan, [facility] [address] [id number] [place] [address] Jan, [facility] [address] [facility] [id number] [place] [address] Jan, [facility] [address] [id number] [place] [address] Jan, [facility] [address] [id number] [place] [address] Jan, [facility] [address] [id number] [place] [address] Jan, [facility] [address] [id number] [place] [address] Jan, [facility] [address] [id number] [place] [address] Jan, [facility] [address] [id number] [place] [address] Jan, [facility] [address] [id number] [place] [address] Jan, [facility] [address] [id number] [place] [address] Jan, [facility] [address] [id number] [place] [address] Jan, [facility] [address] [id number] [place] [address] Jan, [facility] [address] [id number] [place] [address] Jan, [facility] [address] [id number] [place] [address] Jan, [facility] [address] [id number] [facility] [address] Jan, [facility] [address] [id number] [facility] [address] December, [facility] [address] [id number] [facility] [address] December, [facility] [address] [id number] [facility] [address] December, [facility] [address] [id number] [facility] [address] December, [facility] [address] [id number] [place] [address] December, [facility] [address] [id number] [place] [address] December, [facility] [address] [id number] [place] [address] Nov, [facility] [address] [id number] [facility] [address] Nov, [facility] [address] [id number] [place] [address] Nov, [facility] [address] [id number] [place] [address] Nov, [facility] [address] [id number] [place] [address] Nov, [facility] [address] [id number] [place] [address] Nov, [facility] [address] [id number] [place] [address] Nov, [facility] [address] [id number] [place] [address] Nov, [facility] [address] [id number] [place] [address] Nov, [facility] [address] [id number] [facility] [address] 07 Nov, 2013 [facility] [address] [facility] [id number] [place] [address] Nov, [facility] [address] [facility] [id number] [place] [address] Nov, [facility] [address] [id number] [place] [address] Nov, [facility] [address] [facility] [id number] [place] [address] Nov, [facility] [address] [facility] [id number] [place] [address] Nov, [facility] [address] [id number] [place] [address] Nov, [facility] [address] [id number] [place] [address] Oct, [facility] [address] [id number] [place] [address] Oct, [facility] [address] [facility] [id number] [place] [address] Oct, [facility] [address] [id number] [place] [address] Oct, [facility] [address] [id number] [place] [address] Oct, [facility] [address] [id number] [place] [address] Oct, [facility] [address] [facility] [id number] [place] [address] Oct, [facility] [address] [id number] [place] [address] Oct, [facility] [address] [id number] [place] [address] Sep, [facility] [address] [id number] [place] [address] Sep, [facility] [address] [id number] [place] [address] Sep, [facility] [address] [id number] [place] [address] Sep, [facility] [address] [id number] [place] [address] Sep, [facility] [address] [id number] [place] [address] Sep, [facility] [address] [id number] [place] [address] Aug, [facility] [address] [id number] [place] [address] Aug, [facility] [address] [id number] [place] [address] Aug, [facility] [address] [id number] [place] [address] Aug, [facility] [address] [id number] [place] [address] Aug, [facility] [address] [id number] [place] [address] Aug, [facility] [address] [id number] [place] [address] Aug, [facility] [address] [id number] [place] [address] Aug, [facility] [address] [id number] [place] [address] Jul, [facility] [address] [id number] [place] [address] Jul, [facility] [address] [id number] [place] [address] Jul, [facility] [address] [id number] [place] [address] Jul, [facility] [address] [id number] [place] [address] 30 Jul, 2012 [facility] [address] [id number] [place] [address] 30 Jul, 2013 [facility] [address] [id number] [place] [address] Jul, [facility] [address] [id number] [place] [address] Jul, [facility] [address] [id number] [place] [address] Jul, [facility] [address] [id number] [place] [address] 14 Jun, 2013 [facility] [address] [id number] [place] [address] 14 Jun, 2013 [facility] [address] [id number] [place] [address] Jun, [facility] [address] [id number] [place] [address] Jun, [facility] [address] [id number] [place] [address] Jun, [facility] [address] [id number] [place] [address] 07 Jun, 2013 [facility] [address] [id number] [place] [address] 31 May, 2013 [facility] [address] [id number] [place] [address] 31 May, 2013 [facility] [address] [id number] [place] [address] 17 May, 2013 [facility] [address] [id number] [place] [address] 17 May, 2013 [facility] [address] [id number] [place] [address] 14 May, 2013 [facility] [address] [id number] [place] [address] 14 May, 2013 [facility] [address] [id number] [place] [address] 10 May, 2012 [facility] [address] [id number] [place] [address] 10 May, 2012 [facility] [address] [id number] [place] [address] 07 May, 2012 [facility] [address] [id number] [place] [address] 20 Sep, 2012 [facility] [address] [id number] [place] [address] 19 Sep, 2012 [facility] [address] [id number] [place] [address] 12 Apr, 2012 [facility] [address] [id number] [place] [address] 24 Sep, 2011 [facility] [address] [id number] [place] [address] 21 Sep, 2011 [facility] [address] [id number] [place] [address] 21 Sep, 2011 [facility] [address] [id number] [place] [address] 14 Sep, 2011 [facility] [address] [id number] [place] [address] 10 Sep, 2011 [facility] [address] [id number] [place] [address] 06 Sep, 2011 [facility] [address] [id number] [place] [address] 04 Sep, 2011 [facility] [address] [id number] [place] [address] 31 Mar, 2011 [facility] [place] [facility] [address] [id number] [place] [address] 28 Mar, 2011 [facility] [place] [facility] [address] [id number] [place] [address] 27 Mar, 2011 [facility] [place] [facility] [address] [id number] [place] [address] Mar, [facility] [place] [facility] [address] [facility] [id number] [place] [address] Mar, [facility] [place] [facility] [address] [facility] [id number] [facility] [address] Mar, [facility] [place] [facility] [address] [id number] [place] [address] Feb, [facility] [place] [facility] [address] [id number] [place] [address] Feb, [facility] [place] [facility] [address] [facility] [id number] [facility] [address] Feb, [facility] [place] [facility] [address] [id number] [place] [address] Jan, [facility] [place] [facility] [address] [id number] [place] [address] Jan, [facility] [place] [facility] [address] [id number] [place] [address] Jan, [facility] [place] [facility] [address] [id number] [place] [address] Jan, [facility] [place] [facility] [address] [id number] [place] [address] Jan, [facility] [place] [facility] [address] [id number] [place] [address] Jan, [facility] [place] [facility] [address] [id number] [place] [address] Jan, [facility] [place] [facility] [address] [id number] [place] [address] Jan, [facility] [place] [facility] [address] [id number] [place] [address] December, [facility] [place] [facility] [address] [id number] [place] [address] December, [facility] [place] [facility] [address] [id number] [place] [address] December, [facility] [place] [facility] [address] [id number] [place] [address] December, [facility] [place] [facility] [address] [id number] [place] [address] December, [facility] [place] [facility] [address] [id number] [place] [address] December, [facility] [place] [facility] [address] [id number] [place] [address] 13 Nov, 2011 [facility] [place] [facility] [address] [id number] [place] [address] 13 Nov, 2011 [facility] [place] [facility] [address] [id number] [place] [address] Nov, [facility] [place] [facility] [address] [id number] [place] [address] 13 Nov, 2011 [facility] [place] [facility] [address] [id number] [place] [address] Nov, [facility] [place] [facility] [address] [id number] [place] [address] Oct, [facility] [place] [facility] [address] [id number] [place] [address] Sep, [facility] [place] [facility] [address] [id number] [place] [address] Aug, [facility] [place] [facility] [address] [id number] [place] [address] Aug, [facility] [place] [facility] [address] [id number] [place] [address] Aug, [facility] [place] [facility] [address] [id number] [place] [address] Aug, [facility] [place] [facility] [address] [id number] [place] [address] Aug, [facility] [place] [facility] [address] [id number] [place] [address] Jul, [facility] [place] [facility] [address] [id number] [place] [address] Jul, [facility] [place] [facility] [address] [id number] [place] [address] 28 Jun, 2011 [facility] [place] [facility] [address] [id number] [place] [address] 04 Jun, 2011 [facility] [place] [facility] [address] [id number] [place] [address] Jun, [facility] [place] [facility] [address] [id number] [place] [address] May, [facility] [place] [facility] [address] [id number] [place] [address] May, [facility] [place] [facility] [address] [id number] [place] [address] 16 Oct, 2010 [facility] [place] [facility] [address] [id number] [place] [address] Oct, [facility] [place] [facility] [address] [id number] [place] [address] 29 Jul, 2010 [facility] [place] [facility] [address] [id number] [place] [address] 08 Jul, 2010 [facility] [place] [facility] [address] [id number] [place] [address] Jul, [facility] [place] [facility] [address] [id number] [place] [address] Jul, [facility] [place] [facility] [address] [id number] [place] [address] Jul, [facility] [place] [facility] [address] [id number] [place] [address] Jun, [facility] [place] [facility] [address] [id number] [place] [address] Jun, [facility] [place] [facility] [address] [id number] [place] [address] Jun, [facility] [place] [facility] [address] [id number] [place] [address] May, [facility] [place] [facility] [address] [id number] [place] [address] 16 Mar, 2010 IMMUNIZATIONS No Known Immunizations [...]
--- OUTSIDE RECORDS SUMMARY | 2019-11-28 22:45 | XMS REPORT ---
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 Name Role Phone LAURIE LYLE Unavailable PROBLEMS Type Condition ICD9-CM Code RLA64-SZ Code Onset Dates Condition S tatus SNOMED Code Problem COPD (chronic obstructive pulmonary disease) J44.9 Active 02351048 Problem Diabetes E11.9 Active 35316069 Problem Diabetic neuropathy E11.40 Active 565658183 Problem Arthritis M19.90 Active 2824106 ALLERGIES No Information ENCOUNTERS Encounter Location Date Diagnosis [place] [address] [address] December, [facility] [address] [address] Aug, Arthritis M19.90 [facility] [address] [address] Jul, [facility] [address] [address] Jul, [facility] [address] [address] Jul, [facility] [address] [address] Jul, [facility] [address] [address] Jul, Diabetes E11.9 ; Diabetic neuropathy E11 .40 ; Arthritis M19.90 and COPD (chronic obstructive pulmonary disease) J44.9 [facility] [address] [address] Jul, [facility] [address] [address] Jun, 2014 [facility] [address] [facility] [id number] [place] [address] 23 Jun, 2014 [facility] [address] [id number] [place] [address] 17 Jun, 2014 [facility] [address] [id number] [place] [address] 10 Jun, 2014 [facility] [address] [id number] [place] [address] 15 May, 2015 [facility] [address] [facility] [id number] [place] [address] 13 May, 2015 [facility] [address] [id number] [place] [address] 07 May, 2014 [facility] [address] [id number] [place] [address] 22 Sep, 2014 [facility] [address] [id number] [place] [address] 21 Sep, 2014 [facility] [address] [id number] [place] [address] 21 Sep, 2014 [facility] [address] [id number] [place] [address] 15 Sep, 2014 [facility] [address] [id number] [place] [address] 11 Sep, 2014 [facility] [address] [id number] [place] [address] 09 Sep, 2014 [facility] [address] [id number] [place] [address] 08 Sep, 2014 [facility] [address] [id number] [place] [address] 03 Sep, 2014 [facility] [address] [id number] [place] [address] 02 Sep, 2014 [facility] [address] [id number] [place] [address] 31 Mar, 2014 [facility] [address] [place] [id number] [place] [address] Mar, [facility] [address] [address] Mar, [facility] [address] [address] Mar, [facility] [address] [address] Mar, [facility] [address] [address] Mar, Diabetes mellitus 250.00 ; COPD (chronic obstructive pulmonary disease) 496 ; Anxiety 300.00 and Arthritis 716.90 [facility] [address] [address] Feb, [facility] [address] [address] Feb, [facility] [address] [address] Feb, [facility] [address] [address] Feb, [facility] [address] [address] Jan, Seborrheic keratosis 702.19 and Nevus 21 6.9 [facility] [address] [address] Jan, [facility] [address] [address] Jan, Routine gynecological examination V72.31 ; Breast cancer screening V76.10 ; Hot flashes 627.2 ; Atypical nevi 216.9 and Constipation 564.00 [facility] [address] [address] Jan, [facility] [address] [address] December, [facility] [address] [address] 05 Dec, 2014 [facility] [address] [facility] [id number] [facility] [place] [address] 14 Nov, 2014 [facility] [address] [facility] [id number] [facility] [place] [address] 13 Nov, 2014 [facility] [address] [id number] [place] [address] 23 Oct, 2014 [facility] [address] [facility] [id number] [place] [address] 23 Oct, 2014 [facility] [address] [facility] [id number] [place] [address] 18 Oct, 2014 [facility] [address] [id number] [place] [address] 18 Oct, 2014 [facility] [address] [id number] [place] [address] 17 Oct, 2014 [facility] [address] [id number] [place] [address] 17 Oct, 2014 [facility] [address] [id number] [place] [address] 16 Oct, 2014 [facility] [address] [id number] [place] [address] 16 Oct, 2014 [facility] [address] [id number] [place] [address] 11 Oct, 2014 [facility] [address] [id number] [place] [address] Oct, [facility] [address] [facility] [id number] [place] [address] Sep, [facility] [address] [id number] [place] [address] Sep, [facility] [address] [id number] [place] [address] 19 Sep, 2014 [facility] [address] [id number] [place] [address] 18 Sep, 2014 [facility] [address] [id number] [place] [address] 18 Sep, 2014 [facility] [address] [id number] [place] [address] Sep, [facility] [address] [id number] [place] [address] Sep, [facility] [address] [id number] [place] [address] Aug, [facility] [address] [id number] [place] [address] Aug, [facility] [address] [id number] [place] [address] Aug, [facility] [address] [id number] [place] [address] Aug, [facility] [address] [id number] [place] [address] Aug, [facility] [address] [id number] [place] [address] Aug, [facility] [address] [id number] [place] [address] Jul, [facility] [address] [id number] [place] [address] Jul, [facility] [address] [id number] [place] [address] Jul, [facility] [address] [id number] [place] [address] Jul, [facility] [address] [id number] [place] [address] 08 Jul, 2014 [facility] [address] [id number] [place] [address] Jun, [facility] [address] [id number] [place] [address] Jun, [facility] [address] [id number] [place] [address] Jun, [facility] [address] [id number] [place] [address] Jun, [facility] [address] [id number] [place] [address] Jun, [facility] [address] [id number] [place] [address] Jun, [facility] [address] [id number] [place] [address] May, [facility] [address] [id number] [place] [address] May, [facility] [address] [id number] [place] [address] May, [facility] [address] [id number] [place] [address] May, [facility] [address] [id number] [place] [address] May, [facility] [address] [id number] [place] [address] May, [facility] [address] [id number] [place] [address] May, [facility] [address] [id number] [place] [address] May, [facility] [address] [id number] [place] [address] May, [facility] [address] [id number] [place] [address] Apr, 2013 [facility] [address] [id number] [place] [address] Apr, 2013 [facility] [address] [id number] [place] [address] Apr, 2013 [facility] [address] [id number] [place] [address] Apr, 2013 [facility] [address] [id number] [facility] [place] [address] Mar, [facility] [address] [id number] [facility] [place] [address] Mar, [facility] [address] [facility] [id number] [facility] [place] [address] Mar, [facility] [address] [facility] [id number] [facility] [place] [address] Mar, [facility] [address] [facility] [id number] [facility] [place] [address] Mar, [facility] [address] [facility] [id number] [facility] [place] [address] Mar, [facility] [address] [facility] [id number] [place] [address] Feb, [facility] [address] [id number] [place] [address] Feb, [facility] [address] [id number] [place] [address] Feb, [facility] [address] [facility] [id number] [facility] [place] [address] Feb, [facility] [address] [facility] [id number] [place] [address] Feb, [facility] [address] [id number] [place] [address] Feb, [facility] [address] [facility] [id number] [place] [address] Feb, [facility] [address] [facility] [id number] [place] [address] Feb, [facility] [address] [id number] [place] [address] Feb, [facility] [address] [facility] [id number] [place] [address] Feb, [facility] [address] [id number] [place] [address] Feb, [facility] [address] [id number] [place] [address] Feb, 2013 [facility] [address] [id number] [place] [address] Jan, [facility] [address] [id number] [place] [address] Jan, [facility] [address] [id number] [place] [address] Jan, [facility] [address] [facility] [id number] [place] [address] Jan, [facility] [address] [id number] [place] [address] Jan, [facility] [address] [id number] [place] [address] Jan, [facility] [address] [id number] [place] [address] Jan, [facility] [address] [id number] [place] [address] Jan, [facility] [address] [id number] [place] [address] Jan, [facility] [address] [id number] [place] [address] Jan, [facility] [address] [id number] [place] [address] Jan, [facility] [address] [id number] [place] [address] Jan, [facility] [address] [id number] [place] [address] Jan, [facility] [address] [id number] [place] [address] Jan, [facility] [address] [id number] [place] [address] Jan, [facility] [address] [id number] [place] [address] Jan, [facility] [address] [id number] [facility] [place] [address] Jan, [facility] [address] [id number] [facility] [place] [address] December, [facility] [address] [id number] [facility] [place] [address] December, [facility] [address] [id number] [facility] [place] [address] December, [facility] [address] [id number] [facility] [place] [address] December, [facility] [address] [id number] [place] [address] December, [facility] [address] [id number] [place] [address] December, [facility] [address] [id number] [place] [address] Nov, [facility] [address] [id number] [facility] [place] [address] Nov, [facility] [address] [id number] [place] [address] Nov, [facility] [address] [id number] [place] [address] Nov, [facility] [address] [id number] [place] [address] Nov, [facility] [address] [id number] [place] [address] Nov, [facility] [address] [id number] [place] [address] Nov, [facility] [address] [id number] [place] [address] Nov, [facility] [address] [id number] [place] [address] Nov, [facility] [address] [id number] [facility] [place] [address] 07 Nov, 2013 [facility] [address] [facility] [id number] [place] [address] Nov, [facility] [address] [facility] [id number] [place] [address] Nov, [facility] [address] [id number] [place] [address] Nov, [facility] [address] [facility] [id number] [place] [address] Nov, [facility] [address] [facility] [id number] [place] [address] Nov, [facility] [address] [id number] [place] [address] Nov, [facility] [address] [id number] [place] [address] Oct, [facility] [address] [id number] [place] [address] Oct, [facility] [address] [facility] [id number] [place] [address] Oct, [facility] [address] [id number] [place] [address] Oct, [facility] [address] [id number] [place] [address] Oct, [facility] [address] [id number] [place] [address] Oct, [facility] [address] [facility] [id number] [place] [address] Oct, [facility] [address] [id number] [place] [address] Oct, [facility] [address] [id number] [place] [address] Sep, [facility] [address] [id number] [place] [address] Sep, [facility] [address] [id number] [place] [address] Sep, [facility] [address] [id number] [place] [address] Sep, [facility] [address] [id number] [place] [address] Sep, [facility] [address] [id number] [place] [address] Sep, [facility] [address] [id number] [place] [address] Aug, [facility] [address] [id number] [place] [address] Aug, [facility] [address] [id number] [place] [address] Aug, [facility] [address] [id number] [place] [address] Aug, [facility] [address] [id number] [place] [address] Aug, [facility] [address] [id number] [place] [address] Aug, [facility] [address] [id number] [place] [address] Aug, [facility] [address] [id number] [place] [address] Aug, [facility] [address] [id number] [place] [address] Jul, [facility] [address] [id number] [place] [address] Jul, [facility] [address] [id number] [place] [address] Jul, [facility] [address] [id number] [place] [address] Jul, [facility] [address] [id number] [place] [address] 30 Jul, 2012 [facility] [address] [id number] [place] [address] 30 Jul, 2013 [facility] [address] [id number] [place] [address] Jul, [facility] [address] [id number] [place] [address] Jul, [facility] [address] [id number] [place] [address] Jul, [facility] [address] [id number] [place] [address] 14 Jun, 2013 [facility] [facility] [address] [id number] [place] [address] 14 Jun, 2013 [facility] [place] [facility] [id number] [place] [address] Jun, [facility] [place] [facility] [id number] [place] [address] Jun, [facility] [place] [facility] [address] [id number] [place] [address] Jun, [facility] [place] [facility] [address] [id number] [place] [address] 07 Jun, 2013 [facility] [place] [facility] [address] [id number] [place] [address] 31 May, 2013 [facility] [place] [facility] [address] [id number] [place] [address] 31 May, 2013 [facility] [place] [facility] [address] [id number] [place] [address] 17 May, 2013 [facility] [place] [facility] [id number] [place] [address] 17 May, 2013 [facility] [place] [facility] [address] [id number] [place] [address] 14 May, 2013 [facility] [place] [facility] [address] [id number] [place] [address] 14 May, 2013 [facility] [place] [facility] [address] [id number] [place] [address] 10 May, 2012 [facility] [place] [facility] [address] [id number] [place] [address] 10 May, 2012 [facility] [place] [facility] [address] [id number] [place] [address] 07 May, 2012 [facility] [place] [facility] [address] [id number] [place] [address] 20 Sep, 2012 [facility] [place] [facility] [address] [id number] [place] [address] 19 Sep, 2012 [facility] [place] [facility] [address] [id number] [place] [address] 12 Apr, 2012 [facility] [place] [facility] [address] [id number] [place] [address] 24 Sep, 2011 [facility] [place] [facility] [address] [id number] [place] [address] 21 Sep, 2011 [facility] [place] [facility] [address] [id number] [place] [address] 21 Sep, 2011 [facility] [place] [facility] [address] [id number] [place] [address] 14 Sep, 2011 [facility] [place] [facility] [address] [id number] [place] [address] 10 Sep, 2011 [facility] [place] [facility] [address] [id number] [place] [address] 06 Sep, 2011 [facility] [place] [facility] [address] [id number] [place] [address] 04 Sep, 2011 [facility] [place] [facility] [address] [id number] [place] [address] 31 Mar, 2011 [facility] [place] [facility] [address] [id number] [place] [address] 28 Mar, 2011 [facility] [place] [facility] [address] [id number] [place] [address] 27 Mar, 2011 [facility] [place] [facility] [address] [id number] [place] [address] Mar, [facility] [place] [facility] [address] [facility] [id number] [place] [address] Mar, [facility] [place] [facility] [address] [facility] [id number] [facility] [place] [address] Mar, [facility] [place] [facility] [address] [id number] [place] [address] Feb, [facility] [place] [facility] [address] [id number] [place] [address] Feb, [facility] [place] [facility] [address] [facility] [id number] [facility] [place] [address] Feb, [facility] [place] [facility] [address] [id number] [place] [address] Jan, [facility] [place] [facility] [address] [id number] [place] [address] Jan, [facility] [place] [facility] [address] [id number] [place] [address] Jan, [facility] [place] [facility] [address] [id number] [place] [address] Jan, [facility] [place] [facility] [address] [id number] [place] [address] Jan, [facility] [place] [facility] [address] [id number] [place] [address] Jan, [facility] [place] [facility] [address] [id number] [place] [address] Jan, [facility] [place] [facility] [address] [id number] [place] [address] Jan, [facility] [place] [facility] [address] [id number] [place] [address] December, [facility] [place] [facility] [address] [id number] [place] [address] December, [facility] [place] [facility] [address] [id number] [place] [address] December, [facility] [place] [facility] [address] [id number] [place] [address] December, [facility] [place] [facility] [address] [id number] [place] [address] December, [facility] [place] [facility] [address] [id number] [place] [address] December, [facility] [place] [facility] [address] [id number] [place] [address] 13 Nov, 2011 [facility] [place] [facility] [address] [id number] [place] [address] 13 Nov, 2011 [facility] [place] [facility] [address] [id number] [place] [address] Nov, [facility] [place] [facility] [address] [id number] [place] [address] 13 Nov, 2011 [facility] [place] [facility] [address] [id number] [place] [address] Nov, [facility] [place] [facility] [address] [id number] [place] [address] Oct, [facility] [place] [facility] [address] [id number] [place] [address] Sep, [facility] [place] [facility] [address] [id number] [place] [address] Aug, [facility] [place] [facility] [address] [facility] [id number] [place] [address] Aug, [facility] [address] [id number] [place] [address] Aug, [facility] [address] [id number] [place] [address] Aug, [facility] [address] [id number] [place] [address] Aug, [facility] [address] [id number] [place] [address] Jul, [facility] [address] [id number] [place] [address] Jul, [facility] [address] [id number] [place] [address] 28 Jun, 2011 [facility] [address] [id number] [place] [address] 04 Jun, 2011 [facility] [address] [id number] [place] [address] Jun, [facility] [address] [id number] [place] [address] May, [facility] [address] [id number] [place] [address] May, [facility] [address] [id number] [place] [address] 16 Oct, 2010 [facility] [address] [id number] [place] [address] Oct, [facility] [address] [id number] [place] [address] 29 Jul, 2010 [facility] [address] [id number] [place] [address] 08 Jul, 2010 [facility] [address] [id number] [place] [address] Jul, [facility] [address] [id number] [place] [address] Jul, [facility] [address] [id number] [place] [address] Jul, [facility] [address] [id number] [place] [address] Jun, [facility] [address] [id number] [place] [address] Jun, [facility] [address] [id number] [place] [address] Jun, [facility] [address] [id number] [place] [address] May, [facility] [address] [id number] [place] [address] 16 Mar, 2010 IMMUNIZATIONS No Known Immunizations [...]
--- OUTSIDE RECORDS SUMMARY | 2019-11-28 22:46 | XMS REPORT ---
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 Name Role Phone LAURIE LYLE Unavailable PROBLEMS Type Condition ICD9-CM Code CHA01-TR Code Onset Dates Condition S tatus SNOMED Code Problem COPD (chronic obstructive pulmonary disease) J44.9 Active 28692736 Problem Diabetes E11.9 Active 24945412 Problem Diabetic neuropathy E11.40 Active 896285126 Problem Arthritis M19.90 Active 7307016 ALLERGIES No Information ENCOUNTERS Encounter Location Date Diagnosis [place] [address] [address] December, [facility] [address] [address] Aug, Arthritis M19.90 [facility] [address] [address] Jul, [facility] [address] [address] Jul, [facility] [address] [address] Jul, [facility] [address] [address] Jul, [facility] [address] [address] Jul, Diabetes E11.9 ; Diabetic neuropathy E11 .40 ; Arthritis M19.90 and COPD (chronic obstructive pulmonary disease) J44.9 [facility] [address] [address] Jul, [facility] [address] [address] Jun, 2014 [facility] [address] [facility] [id number] [place] [address] 23 Jun, 2014 [facility] [address] [id number] [place] [address] 17 Jun, 2014 [facility] [address] [id number] [place] [address] 10 Jun, 2014 [facility] [address] [id number] [place] [address] 15 May, 2015 [facility] [address] [facility] [id number] [place] [address] 13 May, 2015 [facility] [address] [id number] [place] [address] 07 May, 2014 [facility] [address] [id number] [place] [address] 22 Sep, 2014 [facility] [address] [id number] [place] [address] 21 Sep, 2014 [facility] [address] [id number] [place] [address] 21 Sep, 2014 [facility] [address] [id number] [place] [address] 15 Sep, 2014 [facility] [address] [id number] [place] [address] 11 Sep, 2014 [facility] [address] [id number] [place] [address] 09 Sep, 2014 [facility] [address] [id number] [place] [address] 08 Sep, 2014 [facility] [address] [id number] [place] [address] 03 Sep, 2014 [facility] [address] [id number] [place] [address] 02 Sep, 2014 [facility] [address] [id number] [place] [address] 31 Mar, 2014 [facility] [address] [place] [id number] [place] [address] Mar, [facility] [address] [address] Mar, [facility] [address] [address] Mar, [facility] [address] [address] Mar, [facility] [address] [address] Mar, Diabetes mellitus 250.00 ; COPD (chronic obstructive pulmonary disease) 496 ; Anxiety 300.00 and Arthritis 716.90 [facility] [address] [address] Feb, [facility] [address] [address] Feb, [facility] [address] [address] Feb, [facility] [address] [address] Feb, [facility] [address] [address] Jan, Seborrheic keratosis 702.19 and Nevus 21 6.9 [facility] [address] [address] Jan, [facility] [address] [address] Jan, Routine gynecological examination V72.31 ; Breast cancer screening V76.10 ; Hot flashes 627.2 ; Atypical nevi 216.9 and Constipation 564.00 [facility] [address] [address] Jan, [facility] [address] [address] December, [facility] [address] [address] 05 Dec, 2014 [facility] [address] [facility] [id number] [facility] [place] [address] 14 Nov, 2014 [facility] [address] [facility] [id number] [facility] [place] [address] 13 Nov, 2014 [facility] [address] [id number] [place] [address] 23 Oct, 2014 [facility] [address] [facility] [id number] [place] [address] 23 Oct, 2014 [facility] [address] [facility] [id number] [place] [address] 18 Oct, 2014 [facility] [address] [id number] [place] [address] 18 Oct, 2014 [facility] [address] [id number] [place] [address] 17 Oct, 2014 [facility] [address] [id number] [place] [address] 17 Oct, 2014 [facility] [address] [id number] [place] [address] 16 Oct, 2014 [facility] [address] [id number] [place] [address] 16 Oct, 2014 [facility] [address] [id number] [place] [address] 11 Oct, 2014 [facility] [address] [id number] [place] [address] Oct, [facility] [address] [facility] [id number] [place] [address] Sep, [facility] [address] [id number] [place] [address] Sep, [facility] [address] [id number] [place] [address] 19 Sep, 2014 [facility] [address] [id number] [place] [address] 18 Sep, 2014 [facility] [address] [id number] [place] [address] 18 Sep, 2014 [facility] [address] [id number] [place] [address] Sep, [facility] [address] [id number] [place] [address] Sep, [facility] [address] [id number] [place] [address] Aug, [facility] [address] [id number] [place] [address] Aug, [facility] [address] [id number] [place] [address] Aug, [facility] [address] [id number] [place] [address] Aug, [facility] [address] [id number] [place] [address] Aug, [facility] [address] [id number] [place] [address] Aug, [facility] [address] [id number] [place] [address] Jul, [facility] [address] [id number] [place] [address] Jul, [facility] [address] [id number] [place] [address] Jul, [facility] [address] [id number] [place] [address] Jul, [facility] [address] [id number] [place] [address] 08 Jul, 2014 [facility] [address] [id number] [place] [address] Jun, [facility] [address] [id number] [place] [address] Jun, [facility] [address] [id number] [place] [address] Jun, [facility] [address] [id number] [place] [address] Jun, [facility] [address] [id number] [place] [address] Jun, [facility] [address] [id number] [place] [address] Jun, [facility] [address] [id number] [place] [address] May, [facility] [address] [id number] [place] [address] May, [facility] [address] [id number] [place] [address] May, [facility] [address] [id number] [place] [address] May, [facility] [address] [id number] [place] [address] May, [facility] [address] [id number] [place] [address] May, [facility] [address] [id number] [place] [address] May, [facility] [address] [id number] [place] [address] May, [facility] [address] [id number] [place] [address] May, [facility] [address] [id number] [place] [address] Apr, 2013 [facility] [address] [id number] [place] [address] Apr, 2013 [facility] [address] [id number] [place] [address] Apr, 2013 [facility] [address] [id number] [place] [address] Apr, 2013 [facility] [address] [id number] [facility] [place] [address] Mar, [facility] [address] [id number] [facility] [place] [address] Mar, [facility] [address] [facility] [id number] [facility] [place] [address] Mar, [facility] [address] [facility] [id number] [facility] [place] [place] [address] Mar, [facility] [address] [facility] [id number] [facility] [place] [address] Mar, [facility] [address] [facility] [id number] [facility] [place] [address] Mar, [facility] [address] [facility] [id number] [place] [address] Feb, [facility] [address] [id number] [place] [address] Feb, [facility] [address] [id number] [place] [address] Feb, [facility] [address] [facility] [id number] [facility] [place] [address] Feb, [facility] [address] [facility] [id number] [place] [address] Feb, [facility] [address] [id number] [place] [address] Feb, [facility] [address] [facility] [id number] [place] [address] Feb, [facility] [address] [facility] [id number] [place] [address] Feb, [facility] [address] [id number] [place] [address] Feb, [facility] [address] [facility] [id number] [place] [address] Feb, [facility] [address] [id number] [place] [address] Feb, [facility] [address] [id number] [place] [address] Feb, 2013 [facility] [address] [id number] [place] [address] Jan, [facility] [address] [id number] [place] [address] Jan, [facility] [address] [id number] [place] [address] Jan, [facility] [address] [facility] [id number] [place] [address] Jan, [facility] [address] [id number] [place] [address] Jan, [facility] [address] [id number] [place] [address] Jan, [facility] [address] [id number] [place] [address] Jan, [facility] [address] [id number] [place] [address] Jan, [facility] [address] [id number] [place] [address] Jan, [facility] [address] [id number] [place] [address] Jan, [facility] [address] [id number] [place] [address] Jan, [facility] [address] [id number] [place] [address] Jan, [facility] [address] [id number] [place] [address] Jan, [facility] [address] [id number] [place] [address] Jan, [facility] [address] [id number] [place] [address] Jan, [facility] [address] [id number] [place] [address] Jan, [facility] [address] [id number] [facility] [place] [address] Jan, [facility] [address] [id number] [facility] [place] [place] [address] December, [facility] [address] [id number] [facility] [place] [address] December, [facility] [address] [id number] [facility] [place] [address] December, [facility] [address] [id number] [facility] [place] [address] December, [facility] [address] [id number] [place] [address] December, [facility] [address] [id number] [place] [address] December, [facility] [address] [id number] [place] [address] Nov, [facility] [address] [id number] [facility] [place] [address] Nov, [facility] [address] [id number] [place] [address] Nov, [facility] [address] [id number] [place] [address] Nov, [facility] [address] [id number] [place] [address] Nov, [facility] [address] [id number] [place] [address] Nov, [facility] [address] [id number] [place] [address] Nov, [facility] [address] [id number] [place] [address] Nov, [facility] [address] [id number] [place] [address] Nov, [facility] [address] [id number] [facility] [place] [place] [address] 07 Nov, 2013 [facility] [address] [facility] [id number] [place] [address] Nov, [facility] [address] [facility] [id number] [place] [address] Nov, [facility] [address] [id number] [place] [address] Nov, [facility] [address] [facility] [id number] [place] [address] Nov, [facility] [address] [facility] [id number] [place] [address] Nov, [facility] [address] [id number] [place] [address] Nov, [facility] [address] [id number] [place] [address] Oct, [facility] [address] [id number] [place] [address] Oct, [facility] [address] [facility] [id number] [place] [address] Oct, [facility] [address] [id number] [place] [address] Oct, [facility] [address] [id number] [place] [address] Oct, [facility] [address] [id number] [place] [address] Oct, [facility] [address] [facility] [id number] [place] [address] Oct, [facility] [address] [id number] [place] [address] Oct, [facility] [address] [id number] [place] [address] Sep, [facility] [address] [id number] [place] [address] Sep, [facility] [address] [id number] [place] [address] Sep, [facility] [address] [id number] [place] [address] Sep, [facility] [address] [id number] [place] [address] Sep, [facility] [address] [id number] [place] [address] Sep, [facility] [address] [id number] [place] [address] Aug, [facility] [address] [id number] [place] [address] Aug, [facility] [address] [id number] [place] [address] Aug, [facility] [address] [id number] [place] [address] Aug, [facility] [address] [id number] [place] [address] Aug, [facility] [address] [id number] [place] [address] Aug, [facility] [address] [id number] [place] [address] Aug, [facility] [address] [id number] [place] [address] Aug, [facility] [address] [id number] [place] [address] Jul, [facility] [address] [id number] [place] [address] Jul, [facility] [address] [id number] [place] [address] Jul, [facility] [address] [id number] [place] [address] Jul, [facility] [address] [id number] [place] [address] 30 Jul, 2012 [facility] [address] [id number] [place] [address] 30 Jul, 2013 [facility] [address] [id number] [place] [address] Jul, [facility] [address] [id number] [place] [address] Jul, [facility] [address] [id number] [place] [address] Jul, [facility] [address] [id number] [place] [address] 14 Jun, 2013 [facility] [address] [id number] [place] [address] 14 Jun, 2013 [facility] [id number] [place] [address] Jun, [facility] [id number] [place] [address] Jun, [facility] [address] [id number] [place] [address] Jun, [facility] [address] [id number] [place] [address] 07 Jun, 2013 [facility] [address] [id number] [place] [address] 31 May, 2013 [facility] [address] [id number] [place] [address] 31 May, 2013 [facility] [address] [id number] [place] [address] 17 May, 2013 [facility] [id number] [place] [address] 17 May, 2013 [facility] [address] [id number] [place] [address] 14 May, 2013 [facility] [address] [id number] [place] [address] 14 May, 2013 [facility] [id number] [place] [address] 10 May, 2012 [facility] [address] [id number] [place] [address] 10 May, 2012 [facility] [address] [id number] [place] [address] 07 May, 2012 [facility] [address] [id number] [place] [address] 20 Sep, 2012 [facility] [address] [id number] [place] [address] 19 Sep, 2012 [facility] [address] [id number] [place] [address] 12 Apr, 2012 [facility] [address] [id number] [place] [address] 24 Sep, 2011 [facility] [address] [id number] [place] [address] 21 Sep, 2011 [facility] [address] [id number] [place] [address] 21 Sep, 2011 [facility] [address] [id number] [place] [address] 14 Sep, 2011 [facility] [address] [id number] [place] [address] 10 Sep, 2011 [facility] [address] [id number] [place] [address] 06 Sep, 2011 [facility] [address] [id number] [place] [address] 04 Sep, 2011 [facility] [address] [id number] [place] [address] 31 Mar, 2011 [facility] [address] [id number] [place] [address] 28 Mar, 2011 [facility] [address] [id number] [place] [address] 27 Mar, 2011 [facility] [address] [id number] [place] [address] Mar, [facility] [address] [facility] [id number] [place] [address] Mar, [facility] [address] [facility] [id number] [facility] [place] [address] Mar, [facility] [address] [id number] [place] [address] Feb, [facility] [address] [id number] [place] [address] Feb, [facility] [address] [facility] [id number] [facility] [address] Feb, [facility] [address] [id number] [place] [address] Jan, [facility] [address] [id number] [place] [address] Jan, [facility] [address] [id number] [place] [address] Jan, [facility] [address] [id number] [place] [address] Jan, [facility] [address] [id number] [place] [address] Jan, [facility] [place] [facility] [address] [id number] [place] [address] Jan, [facility] [place] [facility] [address] [id number] [place] [address] Jan, [facility] [place] [facility] [address] [id number] [place] [address] Jan, [facility] [place] [facility] [address] [id number] [place] [address] December, [facility] [place] [facility] [address] [id number] [place] [address] December, [facility] [place] [facility] [address] [id number] [place] [address] December, [facility] [place] [facility] [address] [id number] [place] [address] December, [facility] [place] [facility] [id number] [place] [address] December, [facility] [place] [facility] [address] [id number] [place] [address] December, [facility] [place] [facility] [address] [id number] [place] [address] 13 Nov, 2011 [facility] [place] [facility] [address] [id number] [place] [address] 13 Nov, 2011 [facility] [place] [facility] [address] [id number] [place] [address] Nov, [facility] [place] [facility] [address] [id number] [place] [address] 13 Nov, 2011 [facility] [place] [facility] [address] [id number] [place] [address] Nov, [facility] [place] [facility] [address] [id number] [place] [address] Oct, [facility] [place] [facility] [address] [id number] [place] [address] Sep, [facility] [place] [facility] [address] [id number] [place] [address] Aug, [facility] [place] [facility] [address] [id number] [place] [address] Aug, [facility] [place] [facility] [address] [id number] [place] [address] Aug, [facility] [place] [facility] [address] [id number] [place] [address] Aug, [facility] [place] [facility] [address] [id number] [place] [address] Aug, [facility] [place] [facility] [address] [id number] [place] [address] Jul, [facility] [place] [facility] [address] [id number] [place] [address] Jul, [facility] [place] [facility] [address] [id number] [place] [address] 28 Jun, 2011 [facility] [place] [facility] [address] [id number] [place] [address] 04 Jun, 2011 [facility] [place] [facility] [address] [id number] [place] [address] Jun, [facility] [place] [facility] [address] [id number] [place] [address] May, [facility] [place] [facility] [address] [id number] [place] [address] May, [facility] [place] [facility] [address] [id number] [place] [address] 16 Oct, 2010 [facility] [place] [facility] [address] [id number] [place] [address] Oct, [facility] [place] [facility] [address] [id number] [place] [address] 29 Jul, 2010 [facility] [place] [facility] [address] [id number] [place] [address] 08 Jul, 2010 [facility] [place] [facility] [address] [id number] [place] [address] Jul, [facility] [place] [facility] [address] [id number] [place] [address] Jul, [facility] [place] [facility] [address] [id number] [place] [address] Jul, [facility] [place] [facility] [address] [id number] [place] [address] Jun, [facility] [place] [facility] [address] [id number] [place] [address] Jun, [facility] [place] [facility] [address] [id number] [place] [address] Jun, [facility] [place] [facility] [address] [id number] [place] [address] May, [facility] [place] [facility] [address] [id number] [place] [address] 16 Mar, 2010 IMMUNIZATIONS No Known Immunizations SOCIAL HISTORY Never Assessed REASON FOR VISIT PLAN OF CARE VITAL SIGNS Height 60 in 2014-02-08 Weight 230.56 lbs 2014-02-08 Temperature 97.9 degrees Fahrenheit 2014-02-08 Heart Rate 78 bpm 2014-02-08 Respiratory Rate 20 2014-02-08 Blood pressure systolic 140 mmHg 2014-02-08 Blood pressure diastolic 82 mmHg 2014-02-08 MEDICATIONS Unknown Medications RESULTS No Results PROCEDURES [...]
--- OUTSIDE RECORDS SUMMARY | 2019-11-28 22:46 | XMS REPORT ---
Author Author Caren MACEDO Organization [facility] Address [address] [place] [address] Care Team Providers Care Ripening Room Attendant Name Role Phone CORTES MACEDO Unavailable PROBLEMS Type Condition ICD9-CM Code ASN83-DY Code Onset Dates Condition S tatus SNOMED Code Problem COPD (chronic obstructive pulmonary disease) J44.9 Active 31116312 Problem Diabetes E11.9 Active 08122108 Problem Diabetic neuropathy E11.40 Active 217973007 Problem Arthritis M19.90 Active 4819094 ALLERGIES No Information ENCOUNTERS Encounter Location Date Diagnosis [place] [address] [address] December, [facility] [address] [address] Aug, Arthritis M19.90 [facility] [address] [address] Jul, [facility] [address] [address] Jul, [facility] [address] [address] Jul, [facility] [address] [address] Jul, [facility] [address] [address] Jul, Diabetes E11.9 ; Diabetic neuropathy E11 .40 ; Arthritis M19.90 and COPD (chronic obstructive pulmonary disease) J44.9 [facility] [address] [address] Jul, [facility] [address] [address] Jun, [facility] [address] [id number] [place] [address] 23 Jun, 2015 [facility] [address] [id number] [place] [address] 17 Jun, 2014 [facility] [address] [id number] [place] [address] 10 Jun, 2014 [facility] [address] [id number] [place] [address] 15 May, 2015 [facility] [address] [id number] [place] [address] 13 May, 2015 [facility] [address] [id number] [place] [address] 07 May, 2015 [facility] [address] [id number] [place] [address] 22 Sep, 2014 [facility] [address] [id number] [place] [address] 21 Sep, 2014 [facility] [address] [id number] [place] [address] 21 Sep, 2014 [facility] [address] [id number] [place] [address] 15 Sep, 2014 [facility] [address] [id number] [place] [address] 11 Sep, 2014 [facility] [address] [id number] [place] [address] 09 Sep, 2014 [facility] [address] [id number] [place] [address] 08 Sep, 2014 [facility] [address] [id number] [place] [address] 03 Sep, 2014 [facility] [address] [id number] [place] [address] 02 Sep, 2014 [facility] [address] [id number] [place] [address] 31 Mar, 2014 [facility] [address] [place] [id number] [place] [address] Mar, [facility] [address] [address] Mar, [facility] [address] [address] Mar, [facility] [address] [address] Mar, [facility] [address] [address] Mar, Diabetes mellitus 250.00 ; COPD (chronic obstructive pulmonary disease) 496 ; Anxiety 300.00 and Arthritis 716.90 [facility] [address] [address] Feb, [facility] [address] [address] Feb, [facility] [address] [address] Feb, [facility] [address] [address] Feb, [facility] [address] [address] Jan, Seborrheic keratosis 702.19 and Nevus 21 6.9 [facility] [address] [place] [address] Jan, [facility] [address] [address] Jan, Routine gynecological examination V72.31 ; Breast cancer screening V76.10 ; Hot flashes 627.2 ; Atypical nevi 216.9 and Constipation 564.00 [facility] [address] [place] [id number] [place] [address] Jan, [facility] [address] [address] December, [facility] [address] [place] [address] [place] [address] 05 Dec, 2014 [facility] [address] [facility] [id number] [address] 14 Nov, 2014 [facility] [address] [id number] [place] [address] 13 Nov, 2014 [facility] [address] [id number] [place] [address] 23 Oct, 2014 [facility] [address] [id number] [place] [address] 23 Oct, 2014 [facility] [address] [id number] [place] [address] 18 Oct, 2014 [facility] [address] [id number] [place] [address] 18 Oct, 2014 [facility] [address] [id number] [place] [address] 17 Oct, 2014 [facility] [address] [id number] [place] [address] 17 Oct, 2014 [facility] [address] [id number] [place] [address] 16 Oct, 2014 [facility] [address] [id number] [place] [address] 16 Oct, 2014 [facility] [address] [id number] [place] [address] 11 Oct, 2014 [facility] [address] [id number] [place] [address] 11 Oct, 2014 [facility] [address] [id number] [place] [address] Sep, [facility] [address] [id number] [place] [address] 27 Sep, 2014 [facility] [address] [id number] [place] [address] 19 Sep, 2014 [facility] [address] [id number] [place] [address] 18 Sep, 2014 [facility] [address] [id number] [place] [address] Sep, [facility] [address] [id number] [place] [address] Sep, [facility] [address] [id number] [place] [address] Sep, [facility] [address] [id number] [place] [address] Aug, [facility] [address] [id number] [place] [address] Aug, [facility] [address] [id number] [place] [address] Aug, [facility] [address] [id number] [place] [address] Aug, [facility] [address] [id number] [place] [address] Aug, [facility] [address] [id number] [place] [address] Aug, [facility] [address] [id number] [place] [address] Jul, [facility] [address] [id number] [place] [address] Jul, [facility] [address] [id number] [place] [address] Jul, [facility] [address] [id number] [place] [address] Jul, [facility] [address] [id number] [place] [address] 08 Jul, 2014 [facility] [address] [id number] [place] [address] Jun, [facility] [address] [id number] [place] [address] Jun, [facility] [address] [id number] [place] [address] Jun, [facility] [address] [id number] [place] [address] Jun, [facility] [address] [id number] [place] [address] Jun, [facility] [address] [id number] [place] [address] Jun, [facility] [address] [id number] [place] [address] May, [facility] [address] [id number] [place] [address] May, [facility] [address] [id number] [place] [address] May, [facility] [address] [id number] [place] [address] May, [facility] [address] [id number] [place] [address] May, [facility] [address] [id number] [place] [address] May, [facility] [address] [id number] [place] [address] May, [facility] [address] [id number] [place] [address] May, [facility] [address] [id number] [place] [address] May, [facility] [address] [id number] [place] [address] Apr, [facility] [address] [id number] [place] [address] Apr, [facility] [address] [id number] [place] [address] Apr, [facility] [address] [id number] [place] [address] Apr, [facility] [address] [id number] [place] [address] Mar, [facility] [address] [facility] [place] [id number] [place] [address] Mar, [facility] [address] [facility] [place] [id number] [place] [address] Mar, [facility] [address] [id number] [place] [address] Mar, [facility] [address] [facility] [place] [id number] [place] [address] Mar, [facility] [address] [facility] [place] [place] [id number] [place] [address] Mar, [facility] [address] [id number] [place] [address] Feb, [facility] [address] [id number] [place] [address] Feb, [facility] [address] [id number] [place] [address] Feb, [facility] [address] [facility] [place] [id number] [place] [address] Feb, [facility] [address] [id number] [place] [address] Feb, [facility] [address] [id number] [place] [address] Feb, [facility] [address] [id number] [place] [address] Feb, 2013 [facility] [address] [facility] [place] [id number] [place] [address] Feb, [facility] [address] [id number] [place] [address] Feb, [facility] [address] [id number] [place] [address] Feb, 2013 [facility] [address] [id number] [place] [address] Feb, 2013 [facility] [address] [facility] [place] [id number] [place] [address] 08 Feb, 2013 [facility] [address] [facility] [place] [id number] [facility] [address] Jan, [facility] [address] [id number] [place] [address] Jan, [facility] [address] [facility] [place] [id number] [place] [address] Jan, [facility] [address] [facility] [place] [id number] [place] [address] Jan, [facility] [address] [id number] [place] [address] Jan, [facility] [address] [id number] [place] [address] Jan, [facility] [address] [id number] [place] [address] Jan, [facility] [address] [id number] [place] [address] Jan, [facility] [address] [id number] [place] [address] Jan, [facility] [address] [id number] [place] [address] Jan, [facility] [address] [id number] [place] [address] Jan, [facility] [address] [id number] [place] [address] Jan, [facility] [address] [id number] [place] [address] Jan, [facility] [address] [id number] [place] [address] Jan, [facility] [address] [id number] [place] [address] Jan, [facility] [address] [id number] [place] [address] Jan, [facility] [address] [id number] [place] [address] Jan, [facility] [address] [facility] [place] [id number] [place] [address] December, [facility] [address] [id number] [place] [address] December, [facility] [address] [id number] [place] [address] December, [facility] [address] [id number] [place] [address] December, [facility] [address] [id number] [place] [address] December, [facility] [address] [id number] [place] [address] December, [facility] [address] [id number] [place] [address] Nov, [facility] [address] [id number] [place] [address] Nov, [facility] [address] [id number] [place] [address] Nov, [facility] [address] [id number] [place] [address] Nov, [facility] [address] [id number] [place] [address] Nov, [facility] [address] [facility] [place] [id number] [place] [address] Nov, [facility] [address] [id number] [place] [address] Nov, [facility] [address] [id number] [place] [address] Nov, [facility] [address] [id number] [place] [address] Nov, [facility] [address] [facility] [place] [id number] [place] [address] Nov, [facility] [address] [id number] [place] [address] Nov, [facility] [address] [id number] [place] [address] Nov, [facility] [address] [id number] [place] [address] Nov, [facility] [address] [id number] [place] [address] Nov, [facility] [address] [id number] [place] [address] Nov, [facility] [address] [id number] [place] [address] Nov, [facility] [address] [id number] [place] [address] Oct, [facility] [address] [id number] [place] [address] Oct, [facility] [address] [id number] [place] [address] Oct, [facility] [address] [id number] [place] [address] Oct, [facility] [address] [id number] [place] [address] Oct, [facility] [address] [id number] [place] [address] Oct, [facility] [address] [id number] [place] [address] 10 Oct, 2013 [facility] [address] [id number] [place] [address] 10 Oct, 2013 [facility] [address] [id number] [place] [address] Sep, [facility] [address] [id number] [place] [address] Sep, [facility] [address] [id number] [place] [address] Sep, [facility] [address] [id number] [place] [address] Sep, [facility] [address] [id number] [place] [address] Sep, [facility] [address] [id number] [place] [address] Sep, [facility] [address] [id number] [place] [address] Aug, [facility] [address] [id number] [place] [address] Aug, [facility] [address] [id number] [place] [address] Aug, [facility] [address] [id number] [place] [address] Aug, [facility] [address] [id number] [place] [address] Aug, [facility] [address] [id number] [place] [address] Aug, [facility] [address] [id number] [place] [address] Aug, [facility] [address] [id number] [place] [address] Aug, [facility] [address] [id number] [place] [address] Jul, [facility] [address] [id number] [place] [address] Jul, [facility] [address] [id number] [place] [address] Jul, [facility] [address] [id number] [place] [address] Jul, [facility] [address] [id number] [place] [address] 30 Jul, 2012 [facility] [address] [id number] [place] [address] 30 Jul, 2012 [facility] [address] [id number] [place] [address] 03 Jul, 2013 [facility] [address] [id number] [place] [address] 03 Jul, 2013 [facility] [address] [id number] [place] [address] 02 Jul, 2013 [facility] [address] [id number] [place] [address] 14 Jun, 2013 [facility] [address] [id number] [place] [address] 14 Jun, 2013 [facility] [address] [id number] [place] [address] Jun, [facility] [address] [id number] [place] [address] 13 Jun, 2013 [facility] [address] [id number] [place] [address] 07 Jun, 2013 [facility] [address] [id number] [place] [address] 07 Jun, 2013 [facility] [address] [id number] [place] [address] 31 May, 2013 [facility] [address] [id number] [place] [address] 31 May, 2013 [facility] [address] [id number] [place] [address] 17 May, 2013 [facility] [address] [id number] [place] [address] 17 May, 2013 [facility] [address] [id number] [place] [address] 14 May, 2013 [facility] [address] [id number] [place] [address] 14 May, 2013 [facility] [address] [id number] [place] [address] 10 May, 2012 [facility] [address] [id number] [place] [address] 10 May, 2012 [facility] [address] [id number] [place] [address] 07 May, 2012 [facility] [address] [id number] [place] [address] 20 Sep, 2012 [facility] [address] [id number] [place] [address] 19 Sep, 2012 [facility] [address] [id number] [place] [address] 12 Apr, 2012 [facility] [address] [id number] [place] [address] 24 Sep, 2011 [facility] [address] [id number] [place] [address] 21 Sep, 2011 [facility] [address] [id number] [place] [address] 21 Sep, 2011 [facility] [address] [id number] [place] [address] 14 Sep, 2011 [facility] [address] [id number] [place] [address] 10 Sep, 2011 [facility] [address] [id number] [place] [address] 06 Sep, 2011 [facility] [address] [id number] [place] [address] 04 Apr, 2011 [facility] [address] [id number] [place] [address] 31 Mar, 2012 [facility] [address] [id number] [place] [address] 28 Mar, 2011 [facility] [address] [id number] [place] [address] 27 Mar, 2011 [facility] [address] [id number] [place] [address] Mar, [facility] [address] [facility] [place] [id number] [facility] [address] Mar, [facility] [address] [id number] [place] [address] Mar, [facility] [address] [id number] [place] [address] Feb, [facility] [address] [id number] [place] [address] Feb, [facility] [address] [facility] [place] [id number] [facility] [address] Feb, [facility] [address] [id number] [place] [address] Jan, [facility] [address] [id number] [place] [address] Jan, [facility] [address] [id number] [place] [address] Jan, [facility] [address] [id number] [place] [address] Jan, [facility] [address] [id number] [place] [address] Jan, [facility] [address] [id number] [place] [address] Jan, [facility] [address] [id number] [place] [address] Jan, [facility] [address] [id number] [place] [address] Jan, [facility] [address] [id number] [place] [address] December, [facility] [address] [id number] [place] [address] December, [facility] [address] [id number] [place] [address] December, [facility] [address] [id number] [place] [address] December, [facility] [address] [id number] [place] [address] December, [facility] [address] [id number] [place] [address] December, [facility] [address] [id number] [place] [address] 13 Nov, 2011 [facility] [address] [id number] [place] [address] 13 Nov, 2011 [facility] [address] [id number] [place] [address] 13 Nov, 2011 [facility] [address] [id number] [place] [address] 13 Nov, 2011 [facility] [address] [id number] [place] [address] Nov, [facility] [address] [id number] [place] [address] Oct, [facility] [address] [id number] [place] [address] Sep, [facility] [address] [id number] [place] [address] Aug, [facility] [address] [id number] [place] [address] Aug, [facility] [address] [id number] [place] [address] Aug, [facility] [address] [id number] [place] [address] Aug, [facility] [address] [id number] [place] [address] Aug, [facility] [address] [id number] [place] [address] Jul, [facility] [address] [id number] [place] [address] Jul, [facility] [address] [address] [id number] [place] [address] 28 Jun, 2011 [facility] [address] [id number] [place] [address] 04 Jun, 2011 [facility] [address] [id number] [place] [address] Jun, [facility] [address] [id number] [place] [address] 18 May, 2011 [facility] [address] [id number] [place] [address] 17 May, 2011 [facility] [address] [id number] [place] [address] 16 Oct, 2010 [facility] [address] [id number] [place] [address] Oct, [facility] [address] [id number] [place] [address] 29 Jul, 2010 [facility] [address] [id number] [place] [address] 08 Jul, 2010 [facility] [address] [id number] [place] [address] Jul, [facility] [address] [id number] [place] [address] 06 Jul, 2010 [facility] [address] [id number] [place] [address] Jul, [facility] [address] [id number] [place] [address] Jun, [facility] [address] [id number] [place] [address] Jun, [facility] [address] [id number] [place] [address] Jun, [facility] [address] [id number] [place] [address] May, [facility] [address] [id number] [place] [address] Mar, IMMUNIZATIONS No Known Immunizations SOCIAL HISTORY [...]
--- OUTSIDE RECORDS SUMMARY | 2019-11-28 22:46 | XMS REPORT ---
Author Author Caren LYLE Organization [facility] Address [address] [place] [address] Care Team Providers Care Scout Name Role Phone LAURIE LYLE Unavailable PROBLEMS Type Condition ICD9-CM Code [id number] Code Onset Dates Condition S tatus SNOMED Code Problem COPD (chronic obstructive pulmonary disease) J44.9 Active 76091123 Problem Diabetes E11.9 Active 48141739 Problem Diabetic neuropathy E11.40 Active 017710145 Problem Arthritis M19.90 Active [id number] ALLERGIES No Information ENCOUNTERS Encounter Location Date Diagnosis [place] [address] [address] December, [facility] [address] [address] Aug, Arthritis M19.90 [facility] [address] [address] Jul, [facility] [address] [address] Jul, [facility] [address] [address] Jul, [facility] [address] [address] Jul, [facility] [address] [address] Jul, Diabetes E11.9 ; Diabetic neuropathy E11 .40 ; Arthritis M19.90 and COPD (chronic obstructive pulmonary disease) J44.9 [facility] [address] [address] Jul, [facility] [address] [address] Jun, 2014 [facility] [address] [facility] [id number] [place] [address] 23 Jun, 2014 [facility] [address] [id number] [place] [address] 17 Jun, 2014 [facility] [address] [id number] [place] [address] 10 Jun, 2014 [facility] [address] [id number] [place] [address] 15 May, 2015 [facility] [address] [facility] [id number] [place] [address] 13 May, 2015 [facility] [address] [id number] [place] [address] 07 May, 2014 [facility] [address] [id number] [place] [address] 22 Sep, 2014 [facility] [address] [id number] [place] [address] 21 Sep, 2014 [facility] [address] [id number] [place] [address] 21 Sep, 2014 [facility] [address] [id number] [place] [address] 15 Sep, 2014 [facility] [address] [id number] [place] [address] 11 Sep, 2014 [facility] [address] [id number] [place] [address] 09 Sep, 2014 [facility] [address] [id number] [place] [address] 08 Sep, 2014 [facility] [address] [id number] [place] [address] 03 Sep, 2014 [facility] [address] [id number] [place] [address] 02 Sep, 2014 [facility] [address] [id number] [place] [address] 31 Mar, 2014 [facility] [address] [place] [id number] [place] [address] Mar, [facility] [address] [address] Mar, [facility] [address] [address] Mar, [facility] [address] [address] Mar, [facility] [address] [address] Mar, Diabetes mellitus 250.00 ; COPD (chronic obstructive pulmonary disease) 496 ; Anxiety 300.00 and Arthritis 716.90 [facility] [address] [address] Feb, [facility] [address] [address] Feb, [facility] [address] [address] Feb, [facility] [address] [address] Feb, [facility] [address] [address] Jan, Seborrheic keratosis 702.19 and Nevus 21 6.9 [facility] [address] [address] Jan, [facility] [address] [address] Jan, Routine gynecological examination V72.31 ; Breast cancer screening V76.10 ; Hot flashes 627.2 ; Atypical nevi 216.9 and Constipation 564.00 [facility] [address] [address] Jan, [facility] [address] [address] December, [facility] [address] [address] 05 Dec, 2014 [facility] [address] [facility] [id number] [facility] [place] [address] 14 Nov, 2014 [facility] [address] [facility] [id number] [facility] [place] [address] 13 Nov, 2014 [facility] [address] [id number] [place] [address] 23 Oct, 2014 [facility] [address] [facility] [id number] [place] [address] 23 Oct, 2014 [facility] [address] [facility] [id number] [place] [address] 18 Oct, 2014 [facility] [address] [id number] [place] [address] 18 Oct, 2014 [facility] [address] [id number] [place] [address] 17 Oct, 2014 [facility] [address] [id number] [place] [address] 17 Oct, 2014 [facility] [address] [id number] [place] [address] 16 Oct, 2014 [facility] [address] [id number] [place] [address] 16 Oct, 2014 [facility] [address] [id number] [place] [address] 11 Oct, 2014 [facility] [address] [id number] [place] [address] Oct, [facility] [address] [facility] [id number] [place] [address] Sep, [facility] [address] [id number] [place] [address] Sep, [facility] [address] [id number] [place] [address] 19 Sep, 2014 [facility] [address] [id number] [place] [address] 18 Sep, 2014 [facility] [address] [id number] [place] [address] 18 Sep, 2014 [facility] [address] [id number] [place] [address] Sep, [facility] [address] [id number] [place] [address] Sep, [facility] [address] [id number] [place] [address] Aug, [facility] [address] [id number] [place] [address] Aug, [facility] [address] [id number] [place] [address] Aug, [facility] [address] [id number] [place] [address] Aug, [facility] [address] [id number] [place] [address] Aug, [facility] [address] [id number] [place] [address] Aug, [facility] [address] [id number] [place] [address] Jul, [facility] [address] [id number] [place] [address] Jul, [facility] [address] [id number] [place] [address] Jul, [facility] [address] [id number] [place] [address] Jul, [facility] [address] [id number] [place] [address] 08 Jul, 2014 [facility] [address] [id number] [place] [address] Jun, [facility] [address] [id number] [place] [address] Jun, [facility] [address] [id number] [place] [address] Jun, [facility] [address] [id number] [place] [address] Jun, [facility] [address] [id number] [place] [address] Jun, [facility] [address] [id number] [place] [address] Jun, [facility] [address] [id number] [place] [address] May, [facility] [address] [id number] [place] [address] May, [facility] [address] [id number] [place] [address] May, [facility] [address] [id number] [place] [address] May, [facility] [address] [id number] [place] [address] May, [facility] [address] [id number] [place] [address] May, [facility] [address] [id number] [place] [address] May, [facility] [address] [id number] [place] [address] May, [facility] [address] [id number] [place] [address] May, [facility] [address] [id number] [place] [address] Apr, 2013 [facility] [address] [id number] [place] [address] Apr, 2013 [facility] [address] [id number] [place] [address] Apr, 2013 [facility] [address] [id number] [place] [address] Apr, 2013 [facility] [address] [id number] [facility] [place] [address] Mar, [facility] [address] [id number] [facility] [place] [address] Mar, [facility] [address] [facility] [id number] [facility] [place] [address] Mar, [facility] [address] [facility] [id number] [facility] [place] [address] Mar, [facility] [address] [facility] [id number] [facility] [place] [address] Mar, [facility] [address] [facility] [id number] [facility] [place] [address] Mar, [facility] [address] [facility] [id number] [place] [address] Feb, [facility] [address] [id number] [place] [address] Feb, [facility] [address] [id number] [place] [address] Feb, [facility] [address] [facility] [id number] [facility] [place] [address] Feb, [facility] [address] [facility] [id number] [place] [address] Feb, [facility] [address] [id number] [place] [address] Feb, [facility] [address] [facility] [id number] [place] [address] Feb, [facility] [address] [facility] [id number] [place] [address] Feb, [facility] [address] [id number] [place] [address] Feb, [facility] [address] [facility] [id number] [place] [address] Feb, [facility] [address] [id number] [place] [address] Feb, [facility] [address] [id number] [place] [address] Feb, 2013 [facility] [address] [id number] [place] [address] Jan, [facility] [address] [id number] [place] [address] Jan, [facility] [address] [id number] [place] [address] Jan, [facility] [address] [facility] [id number] [place] [address] Jan, [facility] [address] [id number] [place] [address] Jan, [facility] [address] [id number] [place] [address] Jan, [facility] [address] [id number] [place] [address] Jan, [facility] [address] [id number] [place] [address] Jan, [facility] [address] [id number] [place] [address] Jan, [facility] [address] [id number] [place] [address] Jan, [facility] [address] [id number] [place] [address] Jan, [facility] [address] [id number] [place] [address] Jan, [facility] [address] [id number] [place] [address] Jan, [facility] [address] [id number] [place] [address] Jan, [facility] [address] [id number] [place] [address] Jan, [facility] [address] [id number] [place] [address] Jan, [facility] [address] [id number] [facility] [place] [address] Jan, [facility] [address] [id number] [facility] [place] [address] December, [facility] [address] [id number] [facility] [place] [address] December, [facility] [address] [id number] [facility] [place] [address] December, [facility] [address] [id number] [facility] [place] [address] December, [facility] [address] [id number] [place] [address] December, [facility] [address] [id number] [place] [address] December, [facility] [address] [id number] [place] [address] Nov, [facility] [address] [id number] [facility] [place] [address] Nov, [facility] [address] [id number] [place] [address] Nov, [facility] [address] [id number] [place] [address] Nov, [facility] [address] [id number] [place] [address] Nov, [facility] [address] [id number] [place] [address] Nov, [facility] [address] [id number] [place] [address] Nov, [facility] [address] [id number] [place] [address] Nov, [facility] [address] [id number] [place] [address] Nov, [facility] [address] [id number] [facility] [place] [address] 07 Nov, 2013 [facility] [address] [facility] [id number] [place] [address] Nov, [facility] [address] [facility] [id number] [place] [address] Nov, [facility] [address] [id number] [place] [address] Nov, [facility] [address] [facility] [id number] [place] [address] Nov, [facility] [address] [facility] [id number] [place] [address] Nov, [facility] [address] [id number] [place] [address] Nov, [facility] [address] [id number] [place] [address] Oct, [facility] [address] [id number] [place] [address] Oct, [facility] [address] [facility] [id number] [place] [address] Oct, [facility] [address] [id number] [place] [address] Oct, [facility] [address] [id number] [place] [address] Oct, [facility] [address] [id number] [place] [address] Oct, [facility] [address] [facility] [id number] [place] [address] Oct, [facility] [address] [id number] [place] [address] Oct, [facility] [address] [id number] [place] [address] Sep, [facility] [address] [id number] [place] [address] Sep, [facility] [address] [id number] [place] [address] Sep, [facility] [address] [id number] [place] [address] Sep, [facility] [address] [id number] [place] [address] Sep, [facility] [address] [id number] [place] [address] Sep, [facility] [address] [id number] [place] [address] Aug, [facility] [address] [id number] [place] [address] Aug, [facility] [address] [id number] [place] [address] Aug, [facility] [address] [id number] [place] [address] Aug, [facility] [address] [id number] [place] [address] Aug, [facility] [address] [id number] [place] [address] Aug, [facility] [address] [id number] [place] [address] Aug, [facility] [address] [id number] [place] [address] Aug, [facility] [address] [id number] [place] [address] Jul, [facility] [address] [id number] [place] [address] Jul, [facility] [address] [id number] [place] [address] Jul, [facility] [address] [id number] [place] [address] Jul, [facility] [address] [id number] [place] [address] 30 Jul, 2012 [facility] [address] [id number] [place] [address] 30 Jul, 2013 [facility] [address] [id number] [place] [address] Jul, [facility] [address] [id number] [place] [address] Jul, [facility] [address] [id number] [place] [address] Jul, [facility] [address] [id number] [place] [address] 14 Jun, 2013 [facility] [address] [id number] [place] [address] 14 Jun, 2013 [facility] [address] [id number] [place] [address] Jun, [facility] [address] [id number] [place] [address] Jun, [facility] [address] [id number] [place] [address] Jun, [facility] [address] [id number] [place] [address] 07 Jun, 2013 [facility] [address] [id number] [place] [address] 31 May, 2013 [facility] [address] [id number] [place] [address] 31 May, 2013 [facility] [address] [id number] [place] [address] 17 May, 2013 [facility] [facility] [id number] [place] [address] 17 May, 2013 [facility] [place] [facility] [address] [facility] [id number] [place] [address] 14 May, 2013 [facility] [place] [facility] [id number] [place] [address] 14 May, 2013 [facility] [place] [facility] [address] [id number] [place] [address] 10 May, 2012 [facility] [place] [facility] [id number] [place] [address] 10 May, 2012 [facility] [place] [facility] [id number] [place] [address] 07 May, 2012 [facility] [place] [facility] [id number] [place] [address] 20 Sep, 2012 [facility] [place] [facility] [id number] [place] [address] 19 Sep, 2012 [facility] [place] [facility] [id number] [place] [address] 12 Apr, 2012 [facility] [place] [facility] [id number] [place] [address] 24 Sep, 2011 [facility] [place] [facility] [id number] [place] [address] 21 Sep, 2011 [facility] [place] [facility] [id number] [place] [address] 21 Sep, 2011 [facility] [place] [facility] [id number] [place] [address] 14 Sep, 2011 [facility] [place] [facility] [id number] [place] [address] 10 Sep, 2011 [facility] [place] [facility] [id number] [place] [address] 06 Sep, 2011 [facility] [place] [facility] [id number] [place] [address] 04 Sep, 2011 [facility] [place] [facility] [id number] [place] [address] 31 Mar, 2011 [facility] [place] [facility] [id number] [place] [address] 28 Mar, 2011 [facility] [place] [facility] [id number] [place] [address] 27 Mar, 2011 [facility] [place] [facility] [id number] [place] [address] Mar, [facility] [place] [facility] [address] [facility] [id number] [place] [address] Mar, [facility] [place] [facility] [address] [facility] [id number] [facility] [place] [address] Mar, [facility] [place] [facility] [id number] [place] [address] Feb, [facility] [place] [facility] [id number] [place] [address] Feb, [facility] [place] [facility] [address] [facility] [id number] [facility] [place] [address] Feb, [facility] [place] [facility] [id number] [place] [address] Jan, [facility] [place] [facility] [id number] [place] [address] Jan, [facility] [place] [facility] [id number] [place] [address] Jan, [facility] [place] [facility] [id number] [place] [address] Jan, [facility] [place] [facility] [id number] [place] [address] Jan, [facility] [place] [facility] [id number] [place] [address] Jan, [facility] [place] [facility] [id number] [place] [address] Jan, [facility] [place] [facility] [id number] [place] [address] Jan, [facility] [place] [facility] [id number] [place] [address] December, [facility] [place] [facility] [address] [facility] [id number] [place] [address] December, [facility] [place] [facility] [address] [facility] [id number] [place] [address] December, [facility] [place] [facility] [id number] [place] [address] December, [facility] [place] [facility] [address] [id number] [place] [address] December, [facility] [place] [facility] [address] [facility] [id number] [place] [address] December, [facility] [place] [facility] [address] [facility] [id number] [place] [address] 13 Nov, 2011 [facility] [place] [facility] [address] [facility] [id number] [place] [address] 13 Nov, 2011 [facility] [place] [facility] [address] [facility] [id number] [place] [address] Nov, [facility] [place] [facility] [address] [facility] [id number] [place] [address] 13 Nov, 2011 [facility] [place] [facility] [address] [facility] [id number] [place] [address] Nov, [facility] [place] [facility] [address] [facility] [id number] [place] [address] Oct, [facility] [place] [facility] [address] [facility] [id number] [place] [address] Sep, [facility] [place] [facility] [address] [facility] [id number] [place] [address] Aug, [facility] [place] [facility] [id number] [place] [address] Aug, [facility] [place] [facility] [id number] [place] [address] Aug, [facility] [place] [facility] [address] [facility] [id number] [place] [address] Aug, [facility] [place] [facility] [id number] [place] [address] Aug, [facility] [place] [facility] [address] [id number] [place] [address] Jul, [facility] [place] [facility] [address] [id number] [place] [address] Jul, [facility] [place] [facility] [id number] [place] [address] 28 Jun, 2011 [facility] [place] [facility] [id number] [place] [address] 04 Jun, 2011 [facility] [place] [facility] [id number] [place] [address] Jun, [facility] [place] [facility] [id number] [place] [address] May, [facility] [place] [facility] [id number] [place] [address] May, [facility] [place] [facility] [id number] [place] [address] 16 Oct, 2010 [facility] [place] [facility] [id number] [place] [address] Oct, [facility] [place] [facility] [id number] [place] [id number] 29 Jul, 2010 [facility] [id number] [place] [address] 08 Jul, 2010 [facility] [id number] [place] [address] Jul, [facility] [id number] [place] [address] Jul, [facility] [id number] [place] [address] Jul, [facility] [id number] [place] [address] Jun, [facility] [id number] [place] [address] Jun, [facility] [id number] [place] [address] Jun, [facility] [id number] [place] [address] May, [facility] [id number] [place] [address] 16 Mar, 2010 IMMUNIZATIONS No Known Immunizations SOCIAL HISTORY Never Assessed REASON FOR VISIT PLAN OF CARE VITAL SIGNS Height 60 in 2013-11-24 Weight 232.9 lbs 2013-11-24 Temperature 96.7 degrees Fahrenheit 2013-11-24 Heart Rate 84 bpm 2013-11-24 Respiratory Rate 28 2013-11-24 Blood pressure systolic 152 mmHg 2013-11-24 Blood pressure diastolic 88 mmHg 2013-11-24 MEDICATIONS Unknown Medications RESULTS No Results PROCEDURES Procedure Date Ordered Result Body Site MEASURE BLOOD OXYGEN LEVEL November 24, 2013 INSTRUCTIONS MEDICATIONS ADMINISTERED No Known Medications MEDICAL (GENERAL) HISTORY Type Description Date Medical History Hypertension Medical History Chronic obstructive pulmonary disease Medical History Type 2 diabetes mellitus Medical History Psychiatric disorders depression Surgical History Hysterectomy total abdominal 1996 Surgical History Orthopedic Surgery Surgical History Scleral buckle Hospitalization History No Hospitalization history informati on
--- OUTSIDE RECORDS SUMMARY | 2019-11-28 22:46 | XMS REPORT ---
Author Author Caren LYLE Organization [facility] Address [address] [place] [address] Care Team Providers Care Journeyman Pipe Welder Name Role Phone LAURIE LYLE Unavailable PROBLEMS Type Condition ICD9-CM Code JKH89-PC Code Onset Dates Condition S tatus SNOMED Code Problem COPD (chronic obstructive pulmonary disease) J44.9 Active 23649884 Problem Diabetes E11.9 Active 22528733 Problem Diabetic neuropathy E11.40 Active 635260345 Problem Arthritis M19.90 Active 6410212 ALLERGIES No Information ENCOUNTERS Encounter Location Date Diagnosis [place] [address] [address] December, [facility] [address] [address] Aug, Arthritis M19.90 [facility] [address] [address] Jul, [facility] [address] [address] Jul, [facility] [address] [address] Jul, [facility] [address] [address] Jul, [facility] [address] [address] Jul, Diabetes E11.9 ; Diabetic neuropathy E11 .40 ; Arthritis M19.90 and COPD (chronic obstructive pulmonary disease) J44.9 [facility] [address] [address] Jul, [facility] [address] [address] Jun, 2014 [facility] [place] [facility] [address] [facility] [id number] [place] [address] 23 Jun, 2014 [facility] [place] [facility] [address] [id number] [place] [address] 17 Jun, 2014 [facility] [place] [facility] [address] [id number] [place] [address] 10 Jun, 2014 [facility] [place] [facility] [address] [id number] [place] [address] 15 May, 2015 [facility] [place] [facility] [address] [facility] [id number] [place] [address] 13 May, 2015 [facility] [place] [facility] [address] [id number] [place] [address] 07 May, 2014 [facility] [place] [facility] [address] [id number] [place] [address] 22 Sep, 2014 [facility] [place] [facility] [address] [id number] [place] [address] 21 Sep, 2014 [facility] [place] [facility] [address] [id number] [place] [address] 21 Sep, 2014 [facility] [place] [facility] [address] [id number] [place] [address] 15 Sep, 2014 [facility] [place] [facility] [address] [id number] [place] [address] 11 Sep, 2014 [facility] [place] [facility] [address] [id number] [place] [address] 09 Sep, 2014 [facility] [place] [facility] [address] [id number] [place] [address] 08 Sep, 2014 [facility] [place] [facility] [address] [id number] [place] [address] 03 Sep, 2014 [facility] [place] [facility] [address] [id number] [place] [address] 02 Sep, 2014 [facility] [place] [facility] [address] [id number] [place] [address] 31 Mar, 2014 [facility] [place] [facility] [address] [place] [id number] [place] [address] Mar, [facility] [address] [address] Mar, [facility] [address] [address] Mar, [facility] [address] [address] Mar, [facility] [address] [address] Mar, Diabetes mellitus 250.00 ; COPD (chronic obstructive pulmonary disease) 496 ; Anxiety 300.00 and Arthritis 716.90 [facility] [address] [address] Feb, [facility] [address] [address] Feb, [facility] [address] [address] Feb, [facility] [address] [address] Feb, [facility] [address] [address] Jan, Seborrheic keratosis 702.19 and Nevus 21 6.9 [facility] [address] [address] Jan, [facility] [address] [address] Jan, Routine gynecological examination V72.31 ; Breast cancer screening V76.10 ; Hot flashes 627.2 ; Atypical nevi 216.9 and Constipation 564.00 [facility] [address] [address] Jan, [facility] [address] [address] December, [facility] [address] [address] 05 Dec, 2014 [facility] [place] [facility] [address] [facility] [id number] [place] [address] 14 Nov, 2014 [facility] [place] [facility] [address] [facility] [id number] [place] [address] 13 Nov, 2014 [facility] [place] [facility] [address] [id number] [place] [address] 23 Oct, 2014 [facility] [place] [facility] [address] [facility] [id number] [place] [address] 23 Oct, 2014 [facility] [place] [facility] [address] [facility] [id number] [place] [address] 18 Oct, 2014 [facility] [place] [facility] [address] [id number] [place] [address] 18 Oct, 2014 [facility] [place] [facility] [address] [id number] [place] [address] 17 Oct, 2014 [facility] [place] [facility] [address] [id number] [place] [address] 17 Oct, 2014 [facility] [place] [facility] [address] [id number] [place] [address] 16 Oct, 2014 [facility] [place] [facility] [address] [id number] [place] [address] 16 Oct, 2014 [facility] [place] [facility] [address] [id number] [place] [address] 11 Oct, 2014 [facility] [place] [facility] [address] [id number] [place] [address] Oct, [facility] [place] [facility] [address] [facility] [id number] [place] [address] Sep, [facility] [place] [facility] [address] [id number] [place] [address] Sep, [facility] [place] [facility] [address] [id number] [place] [address] 19 Sep, 2014 [facility] [place] [facility] [address] [id number] [place] [address] 18 Sep, 2014 [facility] [place] [facility] [address] [id number] [place] [address] 18 Sep, 2014 [facility] [place] [facility] [address] [id number] [place] [address] Sep, [facility] [place] [facility] [address] [id number] [place] [address] Sep, [facility] [place] [facility] [address] [id number] [place] [address] Aug, [facility] [place] [facility] [address] [id number] [place] [address] Aug, [facility] [place] [facility] [address] [id number] [place] [address] Aug, [facility] [place] [facility] [address] [id number] [place] [address] Aug, [facility] [place] [facility] [address] [id number] [place] [address] Aug, [facility] [place] [facility] [address] [id number] [place] [address] Aug, [facility] [place] [facility] [address] [id number] [place] [address] Jul, [facility] [place] [facility] [address] [id number] [place] [address] Jul, [facility] [place] [facility] [address] [id number] [place] [address] Jul, [facility] [place] [facility] [address] [id number] [place] [address] Jul, [facility] [place] [facility] [address] [id number] [place] [address] 08 Jul, 2014 [facility] [place] [facility] [address] [id number] [place] [address] Jun, [facility] [place] [facility] [address] [id number] [place] [address] Jun, [facility] [place] [facility] [address] [id number] [place] [address] Jun, [facility] [place] [facility] [address] [id number] [place] [address] Jun, [facility] [place] [facility] [address] [id number] [place] [address] Jun, [facility] [place] [facility] [address] [id number] [place] [address] Jun, [facility] [place] [facility] [address] [id number] [place] [address] May, [facility] [place] [facility] [address] [id number] [place] [address] May, [facility] [place] [facility] [address] [id number] [place] [address] May, [facility] [place] [facility] [address] [id number] [place] [address] May, [facility] [place] [facility] [address] [id number] [place] [address] May, [facility] [place] [facility] [address] [id number] [place] [address] May, [facility] [place] [facility] [address] [id number] [place] [address] May, [facility] [place] [facility] [address] [id number] [place] [address] May, [facility] [place] [facility] [address] [id number] [place] [address] May, [facility] [place] [facility] [address] [id number] [place] [address] Apr, 2013 [facility] [place] [facility] [address] [id number] [place] [address] Apr, 2013 [facility] [place] [facility] [address] [id number] [place] [address] Apr, 2013 [facility] [place] [facility] [address] [id number] [place] [address] Apr, 2013 [facility] [place] [facility] [address] [id number] [place] [address] Mar, [facility] [place] [facility] [address] [id number] [place] [address] Mar, [facility] [place] [facility] [address] [facility] [id number] [place] [address] Mar, [facility] [place] [facility] [address] [facility] [facility] [id number] [place] [address] Mar, [facility] [place] [facility] [address] [facility] [id number] [place] [address] Mar, [facility] [place] [facility] [address] [facility] [id number] [place] [address] Mar, [facility] [place] [facility] [address] [facility] [facility] [id number] [place] [address] Feb, [facility] [place] [facility] [address] [id number] [place] [address] Feb, [facility] [place] [facility] [address] [id number] [place] [address] Feb, [facility] [place] [facility] [address] [facility] [id number] [place] [address] Feb, [facility] [place] [facility] [address] [facility] [id number] [place] [address] Feb, [facility] [place] [facility] [address] [id number] [place] [address] Feb, [facility] [place] [facility] [address] [facility] [id number] [place] [address] Feb, [facility] [place] [facility] [address] [facility] [facility] [id number] [place] [address] Feb, [facility] [place] [facility] [address] [id number] [place] [address] Feb, [facility] [place] [facility] [address] [facility] [id number] [place] [address] Feb, [facility] [place] [facility] [address] [id number] [place] [address] Feb, [facility] [place] [facility] [address] [id number] [place] [address] Feb, 2013 [facility] [place] [facility] [address] [id number] [place] [address] Jan, [facility] [place] [facility] [address] [id number] [place] [address] Jan, [facility] [place] [facility] [address] [id number] [place] [address] Jan, [facility] [place] [facility] [address] [facility] [id number] [place] [address] Jan, [facility] [place] [facility] [address] [id number] [place] [address] Jan, [facility] [place] [facility] [address] [id number] [place] [address] Jan, [facility] [place] [facility] [address] [id number] [place] [address] Jan, [facility] [place] [facility] [address] [id number] [place] [address] Jan, [facility] [place] [facility] [address] [id number] [place] [address] Jan, [facility] [place] [facility] [address] [id number] [place] [address] Jan, [facility] [place] [facility] [address] [id number] [place] [address] Jan, [facility] [place] [facility] [address] [id number] [place] [address] Jan, [facility] [place] [facility] [address] [id number] [place] [address] Jan, [facility] [place] [facility] [address] [id number] [place] [address] Jan, [facility] [place] [facility] [address] [id number] [place] [address] Jan, [facility] [place] [facility] [address] [id number] [place] [address] Jan, [facility] [place] [facility] [address] [id number] [place] [address] Jan, [facility] [place] [facility] [address] [id number] [place] [address] December, [facility] [place] [facility] [address] [id number] [place] [address] December, [facility] [place] [facility] [address] [id number] [place] [address] December, [facility] [place] [facility] [address] [id number] [place] [address] December, [facility] [place] [facility] [address] [id number] [place] [address] December, [facility] [place] [facility] [address] [id number] [place] [address] December, [facility] [place] [facility] [address] [id number] [place] [address] Nov, [facility] [place] [facility] [address] [id number] [place] [address] Nov, [facility] [place] [facility] [address] [id number] [place] [address] Nov, [facility] [place] [facility] [address] [id number] [place] [address] Nov, [facility] [place] [facility] [address] [id number] [place] [address] Nov, [facility] [place] [facility] [address] [id number] [place] [address] Nov, [facility] [place] [facility] [address] [id number] [place] [address] Nov, [facility] [place] [facility] [address] [id number] [place] [address] Nov, [facility] [place] [facility] [address] [id number] [place] [address] Nov, [facility] [place] [facility] [address] [id number] [place] [address] 07 Nov, 2013 [facility] [place] [facility] [address] [facility] [facility] [id number] [place] [address] Nov, [facility] [place] [facility] [address] [facility] [id number] [place] [address] Nov, [facility] [place] [facility] [address] [id number] [place] [address] Nov, [facility] [place] [facility] [address] [facility] [facility] [id number] [place] [address] Nov, [facility] [place] [facility] [address] [facility] [facility] [id number] [place] [address] Nov, [facility] [place] [facility] [address] [id number] [place] [address] Nov, [facility] [place] [facility] [address] [id number] [place] [address] Oct, [facility] [place] [facility] [address] [id number] [place] [address] Oct, [facility] [place] [facility] [address] [facility] [facility] [id number] [place] [address] Oct, [facility] [place] [facility] [address] [id number] [place] [address] Oct, [facility] [place] [facility] [address] [id number] [place] [address] Oct, [facility] [place] [facility] [address] [id number] [place] [address] Oct, [facility] [place] [facility] [address] [facility] [facility] [id number] [place] [address] Oct, [facility] [place] [facility] [address] [id number] [place] [address] Oct, [facility] [place] [facility] [address] [id number] [place] [address] Sep, [facility] [place] [facility] [address] [id number] [place] [address] Sep, [facility] [place] [facility] [address] [id number] [place] [address] Sep, [facility] [place] [facility] [address] [id number] [place] [address] Sep, [facility] [place] [facility] [address] [id number] [place] [address] Sep, [facility] [place] [facility] [address] [id number] [place] [address] Sep, [facility] [place] [facility] [address] [id number] [place] [address] Aug, [facility] [place] [facility] [address] [id number] [place] [address] Aug, [facility] [place] [facility] [address] [id number] [place] [address] Aug, [facility] [place] [facility] [address] [id number] [place] [address] Aug, [facility] [place] [facility] [address] [id number] [place] [address] Aug, [facility] [place] [facility] [address] [id number] [place] [address] Aug, [facility] [place] [facility] [address] [id number] [place] [address] Aug, [facility] [place] [facility] [address] [id number] [place] [address] Aug, [facility] [place] [facility] [address] [id number] [place] [address] Jul, [facility] [place] [facility] [address] [id number] [place] [address] Jul, [facility] [place] [facility] [address] [id number] [place] [address] Jul, [facility] [place] [facility] [address] [id number] [place] [address] Jul, [facility] [place] [facility] [address] [id number] [place] [address] 30 Jul, 2012 [facility] [place] [facility] [address] [id number] [place] [address] 30 Jul, 2013 [facility] [place] [facility] [address] [id number] [place] [address] Jul, [facility] [place] [facility] [address] [id number] [place] [address] Jul, [facility] [place] [facility] [address] [id number] [place] [address] Jul, [facility] [place] [facility] [address] [id number] [place] [address] 14 Jun, 2013 [facility] [place] [facility] [address] [id number] [place] [address] 14 Jun, 2013 [facility] [place] [facility] [address] [id number] [place] [address] Jun, [facility] [place] [facility] [address] [id number] [place] [address] Jun, [facility] [place] [facility] [address] [id number] [place] [address] Jun, [facility] [place] [facility] [address] [id number] [place] [address] 07 Jun, 2013 [facility] [place] [facility] [address] [id number] [place] [address] 31 May, 2013 [facility] [place] [facility] [address] [id number] [place] [address] 31 May, 2013 [facility] [place] [facility] [address] [id number] [place] [address] 17 May, 2013 [facility] [place] [facility] [address] [id number] [place] [address] 17 May, 2013 [facility] [place] [facility] [address] [id number] [place] [address] 14 May, 2013 [facility] [place] [facility] [address] [id number] [place] [address] 14 May, 2013 [facility] [place] [facility] [address] [id number] [place] [address] 10 May, 2012 [facility] [place] [facility] [address] [id number] [place] [address] 10 May, 2012 [facility] [place] [facility] [address] [id number] [place] [address] 07 May, 2012 [facility] [place] [facility] [address] [id number] [place] [address] 20 Sep, 2012 [facility] [place] [facility] [address] [id number] [place] [address] 19 Sep, 2012 [facility] [place] [facility] [address] [id number] [place] [address] 12 Apr, 2012 [facility] [place] [facility] [address] [id number] [place] [address] 24 Sep, 2011 [facility] [place] [facility] [address] [id number] [place] [address] 21 Sep, 2011 [facility] [place] [facility] [address] [id number] [place] [address] 21 Sep, 2011 [facility] [place] [facility] [address] [id number] [place] [address] 14 Sep, 2011 [facility] [place] [facility] [address] [id number] [place] [address] 10 Sep, 2011 [facility] [place] [facility] [id number] [place] [address] 06 Sep, 2011 [facility] [place] [facility] [id number] [place] [address] 04 Sep, 2011 [facility] [place] [facility] [id number] [place] [address] 31 Mar, 2011 [facility] [place] [facility] [id number] [place] [address] 28 Mar, 2011 [facility] [place] [facility] [id number] [place] [address] 27 Mar, 2011 [facility] [place] [facility] [id number] [place] [address] Mar, [facility] [place] [facility] [address] [id number] [place] [address] Mar, [facility] [place] [facility] [address] [id number] [place] [address] Mar, [facility] [place] [facility] [id number] [place] [address] Feb, [facility] [place] [facility] [id number] [place] [address] Feb, [facility] [place] [facility] [address] [id number] [place] [address] Feb, [facility] [place] [facility] [id number] [place] [address] Jan, [facility] [place] [facility] [id number] [place] [address] Jan, [facility] [place] [facility] [id number] [place] [address] Jan, [facility] [place] [facility] [id number] [place] [address] Jan, [facility] [place] [facility] [id number] [place] [address] Jan, [facility] [place] [facility] [id number] [place] [address] Jan, [facility] [place] [facility] [id number] [place] [address] Jan, [facility] [place] [facility] [id number] [place] [address] Jan, [facility] [place] [facility] [id number] [place] [address] December, [facility] [place] [facility] [id number] [place] [address] December, [facility] [place] [facility] [id number] [place] [address] December, [facility] [place] [facility] [id number] [place] [address] December, [facility] [place] [facility] [address] [id number] [place] [address] December, [facility] [place] [facility] [id number] [place] [address] December, [facility] [place] [facility] [id number] [place] [address] 13 Nov, 2011 [facility] [place] [facility] [id number] [place] [address] 13 Nov, 2011 [facility] [place] [facility] [id number] [place] [address] Nov, [facility] [place] [facility] [id number] [place] [address] 13 Nov, 2011 [facility] [place] [facility] [id number] [place] [address] Nov, [facility] [place] [facility] [id number] [place] [address] Oct, [facility] [place] [facility] [id number] [place] [address] Sep, [facility] [place] [facility] [id number] [place] [address] Aug, [facility] [place] [facility] [id number] [place] [address] Aug, [facility] [place] [facility] [id number] [place] [address] Aug, [facility] [place] [facility] [id number] [place] [address] Aug, [facility] [place] [facility] [id number] [place] [address] Aug, [facility] [place] [facility] [id number] [place] [address] Jul, [facility] [place] [facility] [id number] [place] [address] Jul, [facility] [place] [facility] [id number] [place] [address] 28 Jun, 2011 [facility] [place] [facility] [id number] [place] [address] 04 Jun, 2011 [facility] [place] [facility] [id number] [place] [address] Jun, [facility] [place] [facility] [id number] [place] [address] May, [facility] [place] [facility] [id number] [place] [address] May, [facility] [place] [facility] [id number] [place] [address] 16 Oct, 2010 [facility] [place] [facility] [id number] [place] [address] Oct, [facility] [place] [facility] [id number] [place] [address] 29 Jul, 2010 [facility] [place] [facility] [id number] [place] [address] 08 Jul, 2010 [facility] [place] [facility] [id number] [place] [address] Jul, [facility] [place] [facility] [id number] [place] [address] Jul, [facility] [place] [facility] [id number] [place] [address] Jul, [facility] [place] [facility] [id number] [place] [address] Jun, [facility] [place] [facility] [id number] [place] [address] Jun, [facility] [place] [facility] [id number] [place] [address] Jun, [facility] [place] [facility] [id number] [place] [address] May, [facility] [place] [facility] [id number] [place] [address] 16 Mar, 2010 IMMUNIZATIONS No Known Immunizations [...]
--- OUTSIDE RECORDS SUMMARY | 2019-11-28 22:47 | XMS REPORT ---
Author Author Caren LYLE Organization [facility] Address [address] [place] [address] Care Team Providers Care Residential Property Manager Name Role Phone LAURIE LYLE Unavailable PROBLEMS Type Condition ICD9-CM Code PSI85-CR Code Onset Dates Condition S tatus SNOMED Code Problem COPD (chronic obstructive pulmonary disease) J44.9 Active 93009443 Problem Diabetes E11.9 Active 88578945 Problem Diabetic neuropathy E11.40 Active 367528494 Problem Arthritis M19.90 Active [id number] ALLERGIES No Information ENCOUNTERS Encounter Location Date Diagnosis [place] [address] [address] December, [facility] [address] [address] Aug, Arthritis M19.90 [facility] [address] [address] Jul, [facility] [address] [address] Jul, [facility] [address] [address] Jul, [facility] [address] [address] Jul, [facility] [address] [address] Jul, Diabetes E11.9 ; Diabetic neuropathy E11 .40 ; Arthritis M19.90 and COPD (chronic obstructive pulmonary disease) J44.9 [facility] [address] [address] Jul, [facility] [address] [address] Jun, 2014 [facility] [address] [facility] [id number] [place] [address] 23 Jun, 2014 [facility] [address] [id number] [place] [address] 17 Jun, 2014 [facility] [address] [id number] [place] [address] 10 Jun, 2014 [facility] [address] [id number] [place] [address] 15 May, 2015 [facility] [address] [facility] [id number] [place] [address] 13 May, 2015 [facility] [address] [id number] [place] [address] 07 May, 2014 [facility] [address] [id number] [place] [address] 22 Sep, 2014 [facility] [address] [id number] [place] [address] 21 Sep, 2014 [facility] [address] [id number] [place] [address] 21 Sep, 2014 [facility] [address] [id number] [place] [address] 15 Sep, 2014 [facility] [address] [id number] [place] [address] 11 Sep, 2014 [facility] [address] [id number] [place] [address] 09 Sep, 2014 [facility] [address] [id number] [place] [address] 08 Sep, 2014 [facility] [address] [id number] [place] [address] 03 Sep, 2014 [facility] [address] [id number] [place] [address] 02 Sep, 2014 [facility] [address] [id number] [place] [address] 31 Mar, 2014 [facility] [address] [place] [id number] [place] [address] Mar, [facility] [address] [address] Mar, [facility] [address] [address] Mar, [facility] [address] [address] Mar, [facility] [address] [address] Mar, Diabetes mellitus 250.00 ; COPD (chronic obstructive pulmonary disease) 496 ; Anxiety 300.00 and Arthritis 716.90 [facility] [address] [address] Feb, [facility] [address] [address] Feb, [facility] [address] [address] Feb, [facility] [address] [address] Feb, [facility] [address] [address] Jan, Seborrheic keratosis 702.19 and Nevus 21 6.9 [facility] [address] [address] Jan, [facility] [address] [address] Jan, Routine gynecological examination V72.31 ; Breast cancer screening V76.10 ; Hot flashes 627.2 ; Atypical nevi 216.9 and Constipation 564.00 [facility] [address] [address] Jan, [facility] [address] [address] December, [facility] [address] [address] 05 Dec, 2014 [facility] [address] [facility] [id number] [facility] [address] 14 Nov, 2014 [facility] [address] [facility] [id number] [facility] [place] [address] 13 Nov, 2014 [facility] [address] [id number] [place] [address] 23 Oct, 2014 [facility] [address] [facility] [id number] [place] [address] 23 Oct, 2014 [facility] [address] [facility] [id number] [place] [address] 18 Oct, 2014 [facility] [address] [id number] [place] [address] 18 Oct, 2014 [facility] [address] [id number] [place] [address] 17 Oct, 2014 [facility] [address] [id number] [place] [address] 17 Oct, 2014 [facility] [address] [id number] [place] [address] 16 Oct, 2014 [facility] [address] [id number] [place] [address] 16 Oct, 2014 [facility] [address] [id number] [place] [address] 11 Oct, 2014 [facility] [address] [id number] [place] [address] Oct, [facility] [address] [facility] [id number] [place] [address] Sep, [facility] [address] [id number] [place] [address] Sep, [facility] [address] [id number] [place] [address] 19 Sep, 2014 [facility] [address] [id number] [place] [address] 18 Sep, 2014 [facility] [address] [id number] [place] [address] 18 Sep, 2014 [facility] [address] [id number] [place] [address] Sep, [facility] [address] [id number] [place] [address] Sep, [facility] [address] [id number] [place] [address] Aug, [facility] [address] [id number] [place] [address] Aug, [facility] [address] [id number] [place] [address] Aug, [facility] [address] [id number] [place] [address] Aug, [facility] [address] [id number] [place] [address] Aug, [facility] [address] [id number] [place] [address] Aug, [facility] [address] [id number] [place] [address] Jul, [facility] [address] [id number] [place] [address] Jul, [facility] [address] [id number] [place] [address] Jul, [facility] [address] [id number] [place] [address] Jul, [facility] [address] [id number] [place] [address] 08 Jul, 2014 [facility] [address] [id number] [place] [address] Jun, [facility] [address] [id number] [place] [address] Jun, [facility] [address] [id number] [place] [address] Jun, [facility] [address] [id number] [place] [address] Jun, [facility] [address] [id number] [place] [address] Jun, [facility] [address] [id number] [place] [address] Jun, [facility] [address] [id number] [place] [address] May, [facility] [address] [id number] [place] [address] May, [facility] [address] [id number] [place] [address] May, [facility] [address] [id number] [place] [address] May, [facility] [address] [id number] [place] [address] May, [facility] [address] [id number] [place] [address] May, [facility] [address] [id number] [place] [address] May, [facility] [address] [id number] [place] [address] May, [facility] [address] [id number] [place] [address] May, [facility] [address] [id number] [place] [address] Apr, 2013 [facility] [address] [id number] [place] [address] Apr, 2013 [facility] [address] [id number] [place] [address] Apr, 2013 [facility] [address] [id number] [place] [address] Apr, 2013 [facility] [address] [id number] [facility] [place] [address] Mar, [facility] [address] [id number] [facility] [place] [address] Mar, [facility] [address] [facility] [id number] [facility] [place] [address] Mar, [facility] [address] [facility] [id number] [facility] [place] [address] Mar, [facility] [address] [facility] [id number] [facility] [place] [address] Mar, [facility] [address] [facility] [id number] [facility] [place] [address] Mar, [facility] [address] [facility] [id number] [place] [address] Feb, [facility] [address] [id number] [place] [address] Feb, [facility] [address] [id number] [place] [address] Feb, [facility] [address] [facility] [id number] [facility] [place] [address] Feb, [facility] [address] [facility] [id number] [place] [address] Feb, [facility] [address] [id number] [place] [address] Feb, [facility] [address] [facility] [id number] [place] [address] Feb, [facility] [address] [facility] [id number] [place] [address] Feb, [facility] [address] [id number] [place] [address] Feb, [facility] [address] [facility] [id number] [place] [address] Feb, [facility] [address] [id number] [place] [address] Feb, [facility] [address] [id number] [place] [address] Feb, 2013 [facility] [address] [id number] [place] [address] Jan, [facility] [address] [id number] [place] [address] Jan, [facility] [address] [id number] [place] [address] Jan, [facility] [address] [facility] [id number] [place] [address] Jan, [facility] [address] [id number] [place] [address] Jan, [facility] [address] [id number] [place] [address] Jan, [facility] [address] [id number] [place] [address] Jan, [facility] [address] [id number] [place] [address] Jan, [facility] [address] [id number] [place] [address] Jan, [facility] [address] [id number] [place] [address] Jan, [facility] [address] [id number] [place] [address] Jan, [facility] [address] [id number] [place] [address] Jan, [facility] [address] [id number] [place] [address] Jan, [facility] [address] [id number] [place] [address] Jan, [facility] [address] [id number] [place] [address] Jan, [facility] [address] [id number] [place] [address] Jan, [facility] [address] [id number] [facility] [place] [address] Jan, [facility] [address] [id number] [facility] [place] [address] December, [facility] [address] [id number] [facility] [place] [address] December, [facility] [address] [id number] [facility] [place] [address] December, [facility] [address] [id number] [facility] [place] [address] December, [facility] [address] [id number] [place] [address] December, [facility] [address] [id number] [place] [address] December, [facility] [address] [id number] [place] [address] Nov, [facility] [address] [id number] [facility] [place] [address] Nov, [facility] [address] [id number] [place] [address] Nov, [facility] [address] [id number] [place] [address] Nov, [facility] [address] [id number] [place] [address] Nov, [facility] [address] [id number] [place] [address] Nov, [facility] [address] [id number] [place] [address] Nov, [facility] [address] [id number] [place] [address] Nov, [facility] [address] [id number] [place] [address] Nov, [facility] [address] [id number] [facility] [place] [address] 07 Nov, 2013 [facility] [address] [facility] [id number] [place] [address] Nov, [facility] [address] [facility] [id number] [place] [address] Nov, [facility] [address] [id number] [place] [address] Nov, [facility] [address] [facility] [id number] [place] [address] Nov, [facility] [address] [facility] [id number] [place] [address] Nov, [facility] [address] [id number] [place] [address] Nov, [facility] [address] [id number] [place] [address] Oct, [facility] [address] [id number] [place] [address] Oct, [facility] [address] [facility] [id number] [place] [address] Oct, [facility] [address] [id number] [place] [address] Oct, [facility] [address] [id number] [place] [address] Oct, [facility] [address] [id number] [place] [address] Oct, [facility] [address] [facility] [id number] [place] [address] Oct, [facility] [address] [id number] [place] [address] Oct, [facility] [address] [id number] [place] [address] Sep, [facility] [address] [id number] [place] [address] Sep, [facility] [address] [id number] [place] [address] Sep, [facility] [address] [id number] [place] [address] Sep, [facility] [address] [id number] [place] [address] Sep, [facility] [address] [id number] [place] [address] Sep, [facility] [address] [id number] [place] [address] Aug, [facility] [address] [id number] [place] [address] Aug, [facility] [address] [id number] [place] [address] Aug, [facility] [address] [id number] [place] [address] Aug, [facility] [address] [id number] [place] [address] Aug, [facility] [address] [id number] [place] [address] Aug, [facility] [address] [id number] [place] [address] Aug, [facility] [address] [id number] [place] [address] Aug, [facility] [address] [id number] [place] [address] Jul, [facility] [address] [id number] [place] [address] Jul, [facility] [address] [id number] [place] [address] Jul, [facility] [address] [id number] [place] [address] Jul, [facility] [address] [id number] [place] [address] 30 Jul, 2012 [facility] [address] [id number] [place] [address] 30 Jul, 2013 [facility] [address] [id number] [place] [address] Jul, [facility] [address] [id number] [place] [address] Jul, [facility] [address] [id number] [place] [address] Jul, [facility] [address] [id number] [place] [address] 14 Jun, 2013 [facility] [address] [id number] [place] [address] 14 Jun, 2013 [facility] [address] [id number] [place] [address] Jun, [facility] [place] [facility] [id number] [place] [address] Jun, [facility] [place] [facility] [address] [id number] [place] [address] Jun, [facility] [place] [facility] [address] [id number] [place] [address] 07 Jun, 2013 [facility] [place] [facility] [address] [id number] [place] [address] 31 May, 2013 [facility] [place] [facility] [address] [id number] [place] [address] 31 May, 2013 [facility] [place] [facility] [address] [id number] [place] [address] 17 May, 2013 [facility] [place] [facility] [id number] [place] [address] 17 May, 2013 [facility] [place] [facility] [address] [id number] [place] [address] 14 May, 2013 [facility] [place] [facility] [address] [id number] [place] [address] 14 May, 2013 [facility] [place] [facility] [address] [id number] [place] [address] 10 May, 2012 [facility] [place] [facility] [address] [id number] [place] [address] 10 May, 2012 [facility] [place] [facility] [address] [id number] [place] [address] 07 May, 2012 [facility] [place] [facility] [address] [id number] [place] [address] 20 Sep, 2012 [facility] [place] [facility] [address] [id number] [place] [address] 19 Sep, 2012 [facility] [place] [facility] [address] [id number] [place] [address] 12 Apr, 2012 [facility] [place] [facility] [address] [id number] [place] [address] 24 Sep, 2011 [facility] [place] [facility] [address] [id number] [place] [address] 21 Sep, 2011 [facility] [place] [facility] [address] [id number] [place] [address] 21 Sep, 2011 [facility] [place] [facility] [address] [id number] [place] [address] 14 Sep, 2011 [facility] [place] [facility] [address] [id number] [place] [address] 10 Sep, 2011 [facility] [place] [facility] [address] [id number] [place] [address] 06 Sep, 2011 [facility] [place] [facility] [address] [id number] [place] [address] 04 Sep, 2011 [facility] [place] [facility] [address] [id number] [place] [address] 31 Mar, 2011 [facility] [place] [facility] [address] [id number] [place] [address] 28 Mar, 2011 [facility] [place] [facility] [address] [id number] [place] [address] 27 Mar, 2011 [facility] [place] [facility] [address] [id number] [place] [address] Mar, [facility] [place] [facility] [address] [facility] [id number] [place] [address] Mar, [facility] [place] [facility] [address] [facility] [id number] [facility] [place] [address] Mar, [facility] [place] [facility] [address] [id number] [place] [address] Feb, [facility] [place] [facility] [address] [id number] [place] [address] Feb, [facility] [place] [facility] [address] [facility] [id number] [facility] [place] [address] Feb, [facility] [place] [facility] [address] [id number] [place] [address] Jan, [facility] [place] [facility] [address] [id number] [place] [address] Jan, [facility] [place] [facility] [address] [id number] [place] [address] Jan, [facility] [place] [facility] [address] [id number] [place] [address] Jan, [facility] [place] [facility] [address] [id number] [place] [address] Jan, [facility] [place] [facility] [address] [id number] [place] [address] Jan, [facility] [place] [facility] [address] [id number] [place] [address] Jan, [facility] [place] [facility] [address] [id number] [place] [address] Jan, [facility] [place] [facility] [address] [id number] [place] [address] December, [facility] [place] [facility] [address] [id number] [place] [address] December, [facility] [place] [facility] [address] [id number] [place] [address] December, [facility] [place] [facility] [address] [id number] [place] [address] December, [facility] [place] [facility] [address] [id number] [place] [address] December, [facility] [place] [facility] [address] [id number] [place] [address] December, [facility] [place] [facility] [address] [id number] [place] [address] 13 Nov, 2011 [facility] [place] [facility] [address] [id number] [place] [address] 13 Nov, 2011 [facility] [place] [facility] [address] [id number] [place] [address] Nov, [facility] [place] [facility] [address] [id number] [place] [address] 13 Nov, 2011 [facility] [place] [facility] [address] [id number] [place] [address] Nov, [facility] [place] [facility] [address] [id number] [place] [address] Oct, [facility] [place] [facility] [address] [id number] [place] [address] Sep, [facility] [place] [facility] [address] [id number] [place] [address] Aug, [facility] [place] [facility] [address] [id number] [place] [address] Aug, [facility] [place] [facility] [address] [id number] [place] [address] Aug, [facility] [address] [id number] [place] [address] Aug, [facility] [address] [id number] [place] [address] Aug, [facility] [address] [id number] [place] [address] Jul, [facility] [address] [id number] [place] [address] Jul, [facility] [address] [id number] [place] [address] 28 Jun, 2011 [facility] [address] [id number] [place] [address] 04 Jun, 2011 [facility] [address] [id number] [place] [address] Jun, [facility] [address] [id number] [place] [address] May, [facility] [address] [id number] [place] [address] May, [facility] [address] [id number] [place] [address] 16 Oct, 2010 [facility] [address] [id number] [place] [address] Oct, [facility] [address] [id number] [place] [address] 29 Jul, 2010 [facility] [address] [id number] [place] [address] 08 Jul, 2010 [facility] [address] [id number] [place] [address] Jul, [facility] [address] [id number] [place] [address] Jul, [facility] [address] [id number] [place] [address] Jul, [facility] [address] [id number] [place] [address] Jun, [facility] [address] [id number] [place] [address] Jun, [facility] [address] [id number] [place] [address] Jun, [facility] [address] [id number] [place] [address] May, [facility] [address] [id number] [place] [address] 16 Mar, 2010 IMMUNIZATIONS No Known Immunizations [...]
--- OUTSIDE RECORDS SUMMARY | 2019-11-28 22:47 | XMS REPORT ---
Author Author Caren LYLE Organization 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 [address] [address] Aug, Arthritis M19.90 [facility] [address] [address] Jul, [facility] [address] [address] Jul, [facility] [address] [address] Jul, [facility] [address] [address] Jul, [facility] [address] [address] Jul, Diabetes E11.9 ; Diabetic neuropathy E11 .40 ; Arthritis M19.90 and COPD (chronic obstructive pulmonary disease) J44.9 [facility] [address] [address] Jul, [facility] [address] [address] Jun, 2014 [facility] [place] [facility] [address] [facility] [id number] [place] [address] 23 Jun, 2014 [facility] [place] [facility] [address] [id number] [place] [address] 17 Jun, 2014 [facility] [place] [facility] [address] [id number] [place] [address] 10 Jun, 2014 [facility] [place] [facility] [address] [id number] [place] [address] 15 May, 2015 [facility] [place] [facility] [address] [facility] [id number] [place] [address] 13 May, 2015 [facility] [place] [facility] [address] [id number] [place] [address] 07 May, 2014 [facility] [place] [facility] [address] [id number] [place] [address] 22 Sep, 2014 [facility] [place] [facility] [address] [id number] [place] [address] 21 Sep, 2014 [facility] [place] [facility] [address] [id number] [place] [address] 21 Sep, 2014 [facility] [place] [facility] [address] [id number] [place] [address] 15 Sep, 2014 [facility] [place] [facility] [address] [id number] [place] [address] 11 Sep, 2014 [facility] [place] [facility] [address] [id number] [place] [address] 09 Sep, 2014 [facility] [place] [facility] [address] [id number] [place] [address] 08 Sep, 2014 [facility] [place] [facility] [address] [id number] [place] [address] 03 Sep, 2014 [facility] [place] [facility] [address] [id number] [place] [address] 02 Sep, 2014 [facility] [place] [facility] [address] [id number] [place] [address] 31 Mar, 2014 [facility] [place] [facility] [address] [place] [id number] [place] [address] Mar, [facility] [address] [address] Mar, [facility] [address] [address] Mar, [facility] [address] [address] Mar, [facility] [address] [address] Mar, Diabetes mellitus 250.00 ; COPD (chronic obstructive pulmonary disease) 496 ; Anxiety 300.00 and Arthritis 716.90 [facility] [address] [address] Feb, [facility] [address] [address] Feb, [facility] [address] [address] Feb, [facility] [address] [address] Feb, [facility] [address] [address] Jan, Seborrheic keratosis 702.19 and Nevus 21 6.9 [facility] [address] [address] Jan, [facility] [address] [address] Jan, Routine gynecological examination V72.31 ; Breast cancer screening V76.10 ; Hot flashes 627.2 ; Atypical nevi 216.9 and Constipation 564.00 [facility] [address] [address] Jan, [facility] [address] [address] December, [facility] [address] [address] 05 Dec, 2014 [facility] [place] [facility] [address] [facility] [id number] [place] [address] 14 Nov, 2014 [facility] [place] [facility] [address] [facility] [id number] [place] [address] 13 Nov, 2014 [facility] [place] [facility] [address] [id number] [place] [address] 23 Oct, 2014 [facility] [place] [facility] [address] [facility] [id number] [place] [address] 23 Oct, 2014 [facility] [place] [facility] [address] [facility] [id number] [place] [address] 18 Oct, 2014 [facility] [place] [facility] [address] [id number] [place] [address] 18 Oct, 2014 [facility] [place] [facility] [address] [id number] [place] [address] 17 Oct, 2014 [facility] [place] [facility] [address] [id number] [place] [address] 17 Oct, 2014 [facility] [place] [facility] [address] [id number] [place] [address] 16 Oct, 2014 [facility] [place] [facility] [address] [id number] [place] [address] 16 Oct, 2014 [facility] [place] [facility] [address] [id number] [place] [address] 11 Oct, 2014 [facility] [place] [facility] [address] [id number] [place] [address] Oct, [facility] [place] [facility] [address] [facility] [id number] [place] [address] Sep, [facility] [place] [facility] [address] [id number] [place] [address] Sep, [facility] [place] [facility] [address] [id number] [place] [address] 19 Sep, 2014 [facility] [place] [facility] [address] [id number] [place] [address] 18 Sep, 2014 [facility] [place] [facility] [address] [id number] [place] [address] 18 Sep, 2014 [facility] [place] [facility] [address] [id number] [place] [address] Sep, [facility] [place] [facility] [address] [id number] [place] [address] Sep, [facility] [place] [facility] [address] [id number] [place] [address] Aug, [facility] [place] [facility] [address] [id number] [place] [address] Aug, [facility] [place] [facility] [address] [id number] [place] [address] Aug, [facility] [place] [facility] [address] [id number] [place] [address] Aug, [facility] [place] [facility] [address] [id number] [place] [address] Aug, [facility] [place] [facility] [address] [id number] [place] [address] Aug, [facility] [place] [facility] [address] [id number] [place] [address] Jul, [facility] [place] [facility] [address] [id number] [place] [address] Jul, [facility] [place] [facility] [address] [id number] [place] [address] Jul, [facility] [place] [facility] [address] [id number] [place] [address] Jul, [facility] [place] [facility] [address] [id number] [place] [address] 08 Jul, 2014 [facility] [place] [facility] [address] [id number] [place] [address] Jun, [facility] [place] [facility] [address] [id number] [place] [address] Jun, [facility] [place] [facility] [address] [id number] [place] [address] Jun, [facility] [place] [facility] [address] [id number] [place] [address] Jun, [facility] [place] [facility] [address] [id number] [place] [address] Jun, [facility] [place] [facility] [address] [id number] [place] [address] Jun, [facility] [place] [facility] [address] [id number] [place] [address] May, [facility] [place] [facility] [address] [id number] [place] [address] May, [facility] [place] [facility] [address] [id number] [place] [address] May, [facility] [place] [facility] [address] [id number] [place] [address] May, [facility] [place] [facility] [address] [id number] [place] [address] May, [facility] [place] [facility] [address] [id number] [place] [address] May, [facility] [place] [facility] [address] [id number] [place] [address] May, [facility] [place] [facility] [address] [id number] [place] [address] May, [facility] [place] [facility] [address] [id number] [place] [address] May, [facility] [place] [facility] [address] [id number] [place] [address] Apr, 2013 [facility] [place] [facility] [address] [id number] [place] [address] Apr, 2013 [facility] [place] [facility] [address] [id number] [place] [address] Apr, 2013 [facility] [place] [facility] [address] [id number] [place] [address] Apr, 2013 [facility] [place] [facility] [address] [id number] [place] [address] Mar, [facility] [place] [facility] [address] [id number] [place] [address] Mar, [facility] [place] [facility] [address] [facility] [id number] [place] [address] Mar, [facility] [place] [facility] [address] [facility] [id number] [place] [address] Mar, [facility] [place] [facility] [address] [facility] [id number] [place] [address] Mar, [facility] [place] [facility] [address] [facility] [id number] [place] [address] Mar, [facility] [place] [facility] [address] [facility] [id number] [place] [address] Feb, [facility] [place] [facility] [address] [id number] [place] [address] Feb, [facility] [place] [facility] [address] [id number] [place] [address] Feb, [facility] [place] [facility] [address] [facility] [id number] [place] [address] Feb, [facility] [place] [facility] [address] [facility] [id number] [place] [address] Feb, [facility] [place] [facility] [address] [id number] [place] [address] Feb, [facility] [place] [facility] [address] [facility] [id number] [place] [address] Feb, [facility] [place] [facility] [address] [facility] [id number] [place] [address] Feb, [facility] [place] [facility] [address] [id number] [place] [address] Feb, [facility] [place] [facility] [address] [facility] [id number] [place] [address] Feb, [facility] [place] [facility] [address] [id number] [place] [address] Feb, [facility] [place] [facility] [address] [id number] [place] [address] Feb, 2013 [facility] [place] [facility] [address] [id number] [place] [address] Jan, [facility] [place] [facility] [address] [id number] [place] [address] Jan, [facility] [place] [facility] [address] [id number] [place] [address] Jan, [facility] [place] [facility] [address] [facility] [id number] [place] [address] Jan, [facility] [place] [facility] [address] [id number] [place] [address] Jan, [facility] [place] [facility] [address] [id number] [place] [address] Jan, [facility] [place] [facility] [address] [id number] [place] [address] Jan, [facility] [place] [facility] [address] [id number] [place] [address] Jan, [facility] [place] [facility] [address] [id number] [place] [address] Jan, [facility] [place] [facility] [address] [id number] [place] [address] Jan, [facility] [place] [facility] [address] [id number] [place] [address] Jan, [facility] [place] [facility] [address] [id number] [place] [address] Jan, [facility] [place] [facility] [address] [id number] [place] [address] Jan, [facility] [place] [facility] [address] [id number] [place] [address] Jan, [facility] [place] [facility] [address] [id number] [place] [address] Jan, [facility] [place] [facility] [address] [id number] [place] [address] Jan, [facility] [place] [facility] [address] [id number] [place] [address] Jan, [facility] [place] [facility] [address] [id number] [place] [address] December, [facility] [place] [facility] [address] [id number] [place] [address] December, [facility] [place] [facility] [address] [id number] [place] [address] December, [facility] [place] [facility] [address] [id number] [place] [address] December, [facility] [place] [facility] [address] [id number] [place] [address] December, [facility] [place] [facility] [address] [id number] [place] [address] December, [facility] [place] [facility] [address] [id number] [place] [address] Nov, [facility] [place] [facility] [address] [id number] [place] [address] Nov, [facility] [place] [facility] [address] [id number] [place] [address] Nov, [facility] [place] [facility] [address] [id number] [place] [address] Nov, [facility] [place] [facility] [address] [id number] [place] [address] Nov, [facility] [place] [facility] [address] [id number] [place] [address] Nov, [facility] [place] [facility] [address] [id number] [place] [address] Nov, [facility] [place] [facility] [address] [id number] [place] [address] Nov, [facility] [place] [facility] [address] [id number] [place] [address] Nov, [facility] [place] [facility] [address] [id number] [place] [address] 07 Nov, 2013 [facility] [place] [facility] [address] [facility] [id number] [place] [address] Nov, [facility] [place] [facility] [address] [facility] [id number] [place] [address] Nov, [facility] [place] [facility] [address] [id number] [place] [address] Nov, [facility] [place] [facility] [address] [facility] [id number] [place] [address] Nov, [facility] [place] [facility] [address] [facility] [id number] [place] [address] Nov, [facility] [place] [facility] [address] [id number] [place] [address] Nov, [facility] [place] [facility] [address] [id number] [place] [address] Oct, [facility] [place] [facility] [address] [id number] [place] [address] Oct, [facility] [place] [facility] [address] [facility] [id number] [place] [address] Oct, [facility] [place] [facility] [address] [id number] [place] [address] Oct, [facility] [place] [facility] [address] [id number] [place] [address] Oct, [facility] [address] [id number] [place] [address] Oct, [facility] [address] [facility] [id number] [place] [address] Oct, [facility] [address] [id number] [place] [address] Oct, [facility] [address] [id number] [place] [address] Sep, [facility] [address] [id number] [place] [address] Sep, [facility] [address] [id number] [place] [address] Sep, [facility] [address] [id number] [place] [address] Sep, [facility] [address] [id number] [place] [address] Sep, [facility] [address] [id number] [place] [address] Sep, [facility] [address] [id number] [place] [address] Aug, [facility] [address] [id number] [place] [address] Aug, [facility] [address] [id number] [place] [address] Aug, [facility] [address] [id number] [place] [address] Aug, [facility] [address] [id number] [place] [address] Aug, [facility] [address] [id number] [place] [address] Aug, [facility] [address] [id number] [place] [address] Aug, [facility] [address] [id number] [place] [address] Aug, [facility] [address] [id number] [place] [address] Jul, [facility] [address] [id number] [place] [address] Jul, [facility] [address] [id number] [place] [address] Jul, [facility] [address] [id number] [place] [address] Jul, [facility] [address] [id number] [place] [address] 30 Jul, 2012 [facility] [address] [id number] [place] [address] 30 Jul, 2013 [facility] [address] [id number] [place] [address] Jul, [facility] [address] [id number] [place] [address] Jul, [facility] [address] [id number] [place] [address] Jul, [facility] [address] [id number] [place] [address] 14 Jun, 2013 [facility] [address] [id number] [place] [address] 14 Jun, 2013 [facility] [id number] [place] [address] Jun, [facility] [id number] [place] [address] Jun, [facility] [address] [id number] [place] [address] Jun, [facility] [address] [id number] [place] [address] 07 Jun, 2013 [facility] [address] [id number] [place] [address] 31 May, 2013 [facility] [address] [id number] [place] [address] 31 May, 2013 [facility] [address] [id number] [place] [address] 17 May, 2013 [facility] [id number] [place] [address] 17 May, 2013 [facility] [address] [id number] [place] [address] 14 May, 2013 [facility] [address] [id number] [place] [address] 14 May, 2013 [facility] [address] [id number] [place] [address] 10 May, 2012 [facility] [address] [id number] [place] [address] 10 May, 2012 [facility] [address] [id number] [place] [address] 07 May, 2012 [facility] [address] [id number] [place] [address] 20 Sep, 2012 [facility] [address] [id number] [place] [address] 19 Sep, 2012 [facility] [address] [id number] [place] [address] 12 Apr, 2012 [facility] [address] [id number] [place] [address] 24 Sep, 2011 [facility] [address] [id number] [place] [address] 21 Sep, 2011 [facility] [place] [facility] [address] [id number] [place] [address] 21 Sep, 2011 [facility] [place] [facility] [address] [id number] [place] [address] 14 Sep, 2011 [facility] [place] [facility] [address] [id number] [place] [address] 10 Sep, 2011 [facility] [place] [facility] [address] [id number] [place] [address] 06 Sep, 2011 [facility] [place] [facility] [address] [id number] [place] [address] 04 Sep, 2011 [facility] [place] [facility] [address] [id number] [place] [address] 31 Mar, 2011 [facility] [place] [facility] [address] [id number] [place] [address] 28 Mar, 2011 [facility] [place] [facility] [address] [id number] [place] [address] 27 Mar, 2011 [facility] [place] [facility] [address] [id number] [place] [address] Mar, [facility] [place] [facility] [address] [facility] [id number] [place] [address] Mar, [facility] [place] [facility] [address] [facility] [id number] [place] [address] Mar, [facility] [place] [facility] [address] [id number] [place] [address] Feb, [facility] [place] [facility] [address] [id number] [place] [address] Feb, [facility] [place] [facility] [address] [facility] [id number] [place] [address] Feb, [facility] [place] [facility] [address] [id number] [place] [address] Jan, [facility] [place] [facility] [address] [id number] [place] [address] Jan, [facility] [place] [facility] [address] [id number] [place] [address] Jan, [facility] [place] [facility] [address] [id number] [place] [address] Jan, [facility] [place] [facility] [address] [id number] [place] [address] Jan, [facility] [place] [facility] [address] [id number] [place] [address] Jan, [facility] [place] [facility] [address] [id number] [place] [address] Jan, [facility] [place] [facility] [address] [id number] [place] [address] Jan, [facility] [place] [facility] [address] [id number] [place] [address] December, [facility] [place] [facility] [address] [id number] [place] [address] December, [facility] [place] [facility] [address] [id number] [place] [address] December, [facility] [place] [facility] [address] [id number] [place] [address] December, [facility] [place] [facility] [address] [id number] [place] [address] December, [facility] [place] [facility] [address] [id number] [place] [address] December, [facility] [place] [facility] [address] [id number] [place] [address] 13 Nov, 2011 [facility] [place] [facility] [address] [id number] [place] [address] 13 Nov, 2011 [facility] [place] [facility] [address] [id number] [place] [address] Nov, [facility] [place] [facility] [address] [id number] [place] [address] 13 Nov, 2011 [facility] [place] [facility] [address] [id number] [place] [address] Nov, [facility] [place] [facility] [address] [id number] [place] [address] Oct, [facility] [place] [facility] [address] [id number] [place] [address] Sep, [facility] [place] [facility] [address] [id number] [place] [address] Aug, [facility] [place] [facility] [address] [id number] [place] [address] Aug, [facility] [place] [facility] [address] [id number] [place] [address] Aug, [facility] [place] [facility] [address] [id number] [place] [address] Aug, [facility] [place] [facility] [address] [id number] [place] [address] Aug, [facility] [place] [facility] [address] [id number] [place] [address] Jul, [facility] [place] [facility] [address] [id number] [place] [address] Jul, [facility] [place] [facility] [address] [id number] [place] [address] 28 Jun, 2011 [facility] [place] [facility] [address] [id number] [place] [address] 04 Jun, 2011 [facility] [place] [facility] [address] [id number] [place] [address] Jun, [facility] [place] [facility] [address] [id number] [place] [address] May, [facility] [place] [facility] [address] [id number] [place] [address] May, [facility] [place] [facility] [address] [id number] [place] [address] 16 Oct, 2010 [facility] [place] [facility] [address] [id number] [place] [address] Oct, [facility] [place] [facility] [address] [id number] [place] [address] 29 Jul, 2010 [facility] [place] [facility] [address] [id number] [place] [address] 08 Jul, 2010 [facility] [place] [facility] [address] [id number] [place] [address] Jul, [facility] [place] [facility] [address] [id number] [place] [address] Jul, [facility] [place] [facility] [address] [id number] [place] [address] Jul, [facility] [place] [facility] [address] [id number] [place] [address] Jun, [facility] [place] [facility] [address] [id number] [place] [address] Jun, [facility] [place] [facility] [address] [id number] [place] [address] Jun, [facility] [place] [facility] [address] [id number] [place] [address] May, [facility] [place] [facility] [address] [id number] [place] [address] 16 Mar, 2010 IMMUNIZATIONS No Known Immunizations [...]
--- OUTSIDE RECORDS SUMMARY | 2019-11-28 22:47 | XMS REPORT ---
Author Author Caren LYLE Organization [facility] Address [address] [place] [address] Care Team Providers Care Marshmallow Runner Name Role Phone LAURIE LYLE Unavailable PROBLEMS Type Condition ICD9-CM Code DHS67-HR Code Onset Dates Condition S tatus SNOMED Code Problem COPD (chronic obstructive pulmonary disease) J44.9 Active 25110138 Problem Diabetes E11.9 Active 49839778 Problem Diabetic neuropathy E11.40 Active 263830727 Problem Arthritis M19.90 Active 3525413 ALLERGIES No Information ENCOUNTERS Encounter Location Date Diagnosis [place] [address] [address] December, [facility] [address] [address] Aug, Arthritis M19.90 [facility] [address] [address] Jul, [facility] [address] [address] Jul, [facility] [address] [address] Jul, [facility] [address] [address] Jul, [facility] [address] [address] Jul, Diabetes E11.9 ; Diabetic neuropathy E11 .40 ; Arthritis M19.90 and COPD (chronic obstructive pulmonary disease) J44.9 [facility] [address] [address] Jul, [facility] [address] [address] Jun, 2014 [facility] [address] [facility] [id number] [place] [address] 23 Jun, 2014 [facility] [address] [id number] [place] [address] 17 Jun, 2014 [facility] [address] [id number] [place] [address] 10 Jun, 2014 [facility] [address] [id number] [place] [address] 15 May, 2015 [facility] [address] [facility] [id number] [place] [address] 13 May, 2015 [facility] [address] [id number] [place] [address] 07 May, 2014 [facility] [address] [id number] [place] [address] 22 Sep, 2014 [facility] [address] [id number] [place] [address] 21 Sep, 2014 [facility] [address] [id number] [place] [address] 21 Sep, 2014 [facility] [address] [id number] [place] [address] 15 Sep, 2014 [facility] [address] [id number] [place] [address] 11 Sep, 2014 [facility] [address] [id number] [place] [address] 09 Sep, 2014 [facility] [address] [id number] [place] [address] 08 Sep, 2014 [facility] [address] [id number] [place] [address] 03 Sep, 2014 [facility] [address] [id number] [place] [address] 02 Sep, 2014 [facility] [address] [id number] [place] [address] 31 Mar, 2014 [facility] [address] [place] [id number] [place] [address] Mar, [facility] [address] [address] Mar, [facility] [address] [address] Mar, [facility] [address] [address] Mar, [facility] [address] [address] Mar, Diabetes mellitus 250.00 ; COPD (chronic obstructive pulmonary disease) 496 ; Anxiety 300.00 and Arthritis 716.90 [facility] [address] [address] Feb, [facility] [address] [address] Feb, [facility] [address] [address] Feb, [facility] [address] [address] Feb, [facility] [address] [address] Jan, Seborrheic keratosis 702.19 and Nevus 21 6.9 [facility] [address] [address] Jan, [facility] [address] [address] Jan, Routine gynecological examination V72.31 ; Breast cancer screening V76.10 ; Hot flashes 627.2 ; Atypical nevi 216.9 and Constipation 564.00 [facility] [address] [address] Jan, [facility] [address] [address] December, [facility] [address] [address] 05 Dec, 2014 [facility] [address] [facility] [id number] [facility] [place] [address] 14 Nov, 2014 [facility] [address] [facility] [id number] [facility] [place] [address] 13 Nov, 2014 [facility] [address] [id number] [place] [address] 23 Oct, 2014 [facility] [address] [facility] [id number] [place] [address] 23 Oct, 2014 [facility] [address] [facility] [id number] [place] [address] 18 Oct, 2014 [facility] [address] [id number] [place] [address] 18 Oct, 2014 [facility] [address] [id number] [place] [address] 17 Oct, 2014 [facility] [address] [id number] [place] [address] 17 Oct, 2014 [facility] [address] [id number] [place] [address] 16 Oct, 2014 [facility] [address] [id number] [place] [address] 16 Oct, 2014 [facility] [address] [id number] [place] [address] 11 Oct, 2014 [facility] [address] [id number] [place] [address] Oct, [facility] [address] [facility] [id number] [place] [address] Sep, [facility] [address] [id number] [place] [address] Sep, [facility] [address] [id number] [place] [address] 19 Sep, 2014 [facility] [address] [id number] [place] [address] 18 Sep, 2014 [facility] [address] [id number] [place] [address] 18 Sep, 2014 [facility] [address] [id number] [place] [address] Sep, [facility] [address] [id number] [place] [address] Sep, [facility] [address] [id number] [place] [address] Aug, [facility] [address] [id number] [place] [address] Aug, [facility] [address] [id number] [place] [address] Aug, [facility] [address] [id number] [place] [address] Aug, [facility] [address] [id number] [place] [address] Aug, [facility] [address] [id number] [place] [address] Aug, [facility] [address] [id number] [place] [address] Jul, [facility] [address] [id number] [place] [address] Jul, [facility] [address] [id number] [place] [address] Jul, [facility] [address] [id number] [place] [address] Jul, [facility] [address] [id number] [place] [address] 08 Jul, 2014 [facility] [address] [id number] [place] [address] Jun, [facility] [address] [id number] [place] [address] Jun, [facility] [address] [id number] [place] [address] Jun, [facility] [address] [id number] [place] [address] Jun, [facility] [address] [id number] [place] [address] Jun, [facility] [address] [id number] [place] [address] Jun, [facility] [address] [id number] [place] [address] May, [facility] [address] [id number] [place] [address] May, [facility] [address] [id number] [place] [address] May, [facility] [address] [id number] [place] [address] May, [facility] [address] [id number] [place] [address] May, [facility] [address] [id number] [place] [address] May, [facility] [address] [id number] [place] [address] May, [facility] [address] [id number] [place] [address] May, [facility] [address] [id number] [place] [address] May, [facility] [address] [id number] [place] [address] Apr, 2013 [facility] [address] [id number] [place] [address] Apr, 2013 [facility] [address] [id number] [place] [address] Apr, 2013 [facility] [address] [id number] [place] [address] Apr, 2013 [facility] [address] [id number] [facility] [place] [address] Mar, [facility] [address] [id number] [facility] [address] Mar, [facility] [address] [facility] [id number] [facility] [address] Mar, [facility] [address] [facility] [id number] [facility] [place] [address] Mar, [facility] [address] [facility] [id number] [facility] [address] Mar, [facility] [address] [facility] [id number] [facility] [address] Mar, [facility] [address] [facility] [id number] [place] [address] Feb, [facility] [address] [id number] [place] [address] Feb, [facility] [address] [id number] [place] [address] Feb, [facility] [address] [facility] [id number] [facility] [address] Feb, [facility] [address] [facility] [id number] [place] [address] Feb, [facility] [address] [id number] [place] [address] Feb, [facility] [address] [facility] [id number] [place] [address] Feb, [facility] [address] [facility] [id number] [place] [address] Feb, [facility] [address] [id number] [place] [address] Feb, [facility] [address] [facility] [id number] [place] [address] Feb, [facility] [address] [id number] [place] [address] Feb, [facility] [address] [id number] [place] [address] Feb, 2013 [facility] [address] [id number] [place] [address] Jan, [facility] [address] [id number] [place] [address] Jan, [facility] [address] [id number] [place] [address] Jan, [facility] [address] [facility] [id number] [place] [address] Jan, [facility] [address] [id number] [place] [address] Jan, [facility] [address] [id number] [place] [address] Jan, [facility] [address] [id number] [place] [address] Jan, [facility] [address] [id number] [place] [address] Jan, [facility] [address] [id number] [place] [address] Jan, [facility] [address] [id number] [place] [address] Jan, [facility] [address] [id number] [place] [address] Jan, [facility] [address] [id number] [place] [address] Jan, [facility] [address] [id number] [place] [address] Jan, [facility] [address] [id number] [place] [address] Jan, [facility] [address] [id number] [place] [address] Jan, [facility] [address] [id number] [place] [address] Jan, [facility] [address] [id number] [facility] [place] [address] Jan, [facility] [address] [id number] [facility] [place] [address] December, [facility] [address] [id number] [facility] [address] December, [facility] [address] [id number] [facility] [address] December, [facility] [address] [id number] [facility] [address] December, [facility] [address] [id number] [place] [address] December, [facility] [address] [id number] [place] [address] December, [facility] [address] [id number] [place] [address] Nov, [facility] [address] [id number] [facility] [address] Nov, [facility] [address] [id number] [place] [address] Nov, [facility] [address] [id number] [place] [address] Nov, [facility] [address] [id number] [place] [address] Nov, [facility] [address] [id number] [place] [address] Nov, [facility] [address] [id number] [place] [address] Nov, [facility] [address] [id number] [place] [address] Nov, [facility] [address] [id number] [place] [address] Nov, [facility] [address] [id number] [facility] [place] [address] 07 Nov, 2013 [facility] [address] [facility] [id number] [place] [address] Nov, [facility] [address] [facility] [id number] [place] [address] Nov, [facility] [address] [id number] [place] [address] Nov, [facility] [address] [facility] [id number] [place] [address] Nov, [facility] [address] [facility] [id number] [place] [address] Nov, [facility] [address] [id number] [place] [address] Nov, [facility] [address] [id number] [place] [address] Oct, [facility] [address] [id number] [place] [address] Oct, [facility] [address] [facility] [id number] [place] [address] Oct, [facility] [address] [id number] [place] [address] Oct, [facility] [address] [id number] [place] [address] Oct, [facility] [address] [id number] [place] [address] Oct, [facility] [address] [facility] [id number] [place] [address] Oct, [facility] [address] [id number] [place] [address] Oct, [facility] [address] [id number] [place] [address] Sep, [facility] [address] [id number] [place] [address] Sep, [facility] [address] [id number] [place] [address] Sep, [facility] [address] [id number] [place] [address] Sep, [facility] [address] [id number] [place] [address] Sep, [facility] [address] [id number] [place] [address] Sep, [facility] [address] [id number] [place] [address] Aug, [facility] [address] [id number] [place] [address] Aug, [facility] [address] [id number] [place] [address] Aug, [facility] [address] [id number] [place] [address] Aug, [facility] [address] [id number] [place] [address] Aug, [facility] [address] [id number] [place] [address] Aug, [facility] [address] [id number] [place] [address] Aug, [facility] [address] [id number] [place] [address] Aug, [facility] [address] [id number] [place] [address] Jul, [facility] [address] [id number] [place] [address] Jul, [facility] [address] [id number] [place] [address] Jul, [facility] [address] [id number] [place] [address] Jul, [facility] [address] [id number] [place] [address] 30 Jul, 2012 [facility] [address] [id number] [place] [address] 30 Jul, 2013 [facility] [address] [id number] [place] [address] Jul, [facility] [place] [facility] [address] [id number] [place] [address] Jul, [facility] [place] [facility] [address] [id number] [place] [address] Jul, [facility] [place] [facility] [address] [id number] [place] [address] 14 Jun, 2013 [facility] [place] [facility] [address] [id number] [place] [address] 14 Jun, 2013 [facility] [place] [facility] [id number] [place] [address] Jun, [facility] [place] [facility] [id number] [place] [address] Jun, [facility] [place] [facility] [address] [id number] [place] [address] Jun, [facility] [place] [facility] [address] [id number] [place] [address] 07 Jun, 2013 [facility] [place] [facility] [address] [id number] [place] [address] 31 May, 2013 [facility] [place] [facility] [address] [id number] [place] [address] 31 May, 2013 [facility] [place] [facility] [address] [id number] [place] [address] 17 May, 2013 [facility] [place] [facility] [id number] [place] [address] 17 May, 2013 [facility] [place] [facility] [address] [id number] [place] [address] 14 May, 2013 [facility] [place] [facility] [address] [id number] [place] [address] 14 May, 2013 [facility] [place] [facility] [address] [id number] [place] [address] 10 May, 2012 [facility] [place] [facility] [address] [id number] [place] [address] 10 May, 2012 [facility] [place] [facility] [address] [id number] [place] [address] 07 May, 2012 [facility] [place] [facility] [address] [id number] [place] [address] 20 Sep, 2012 [facility] [place] [facility] [address] [id number] [place] [address] 19 Sep, 2012 [facility] [place] [facility] [address] [id number] [place] [address] 12 Apr, 2012 [facility] [place] [facility] [address] [id number] [place] [address] 24 Sep, 2011 [facility] [place] [facility] [address] [id number] [place] [address] 21 Sep, 2011 [facility] [place] [facility] [address] [id number] [place] [address] 21 Sep, 2011 [facility] [place] [facility] [address] [id number] [place] [address] 14 Sep, 2011 [facility] [place] [facility] [address] [id number] [place] [address] 10 Sep, 2011 [facility] [place] [facility] [address] [id number] [place] [address] 06 Sep, 2011 [facility] [place] [facility] [address] [id number] [place] [address] 04 Sep, 2011 [facility] [place] [facility] [address] [id number] [place] [address] 31 Mar, 2011 [facility] [place] [facility] [address] [id number] [place] [address] 28 Mar, 2011 [facility] [place] [facility] [address] [id number] [place] [address] 27 Mar, 2011 [facility] [place] [facility] [address] [id number] [place] [address] Mar, [facility] [place] [facility] [address] [facility] [id number] [place] [address] Mar, [facility] [place] [facility] [address] [facility] [id number] [facility] [place] [address] Mar, [facility] [place] [facility] [address] [id number] [place] [address] Feb, [facility] [place] [facility] [address] [id number] [place] [address] Feb, [facility] [place] [facility] [address] [facility] [id number] [facility] [place] [address] Feb, [facility] [place] [facility] [address] [id number] [place] [address] Jan, [facility] [place] [facility] [address] [id number] [place] [address] Jan, [facility] [place] [facility] [address] [id number] [place] [address] Jan, [facility] [place] [facility] [address] [id number] [place] [address] Jan, [facility] [place] [facility] [address] [id number] [place] [address] Jan, [facility] [place] [facility] [address] [id number] [place] [address] Jan, [facility] [place] [facility] [address] [id number] [place] [address] Jan, [facility] [place] [facility] [address] [id number] [place] [address] Jan, [facility] [place] [facility] [address] [id number] [place] [address] December, [facility] [place] [facility] [address] [id number] [place] [address] December, [facility] [place] [facility] [address] [id number] [place] [address] December, [facility] [place] [facility] [address] [id number] [place] [address] December, [facility] [place] [facility] [address] [id number] [place] [address] December, [facility] [place] [facility] [address] [id number] [place] [address] December, [facility] [place] [facility] [address] [id number] [place] [place] [address] 13 Nov, 2011 [facility] [address] [id number] [place] [address] 13 Nov, 2011 [facility] [address] [id number] [place] [address] Nov, [facility] [address] [id number] [place] [address] 13 Nov, 2011 [facility] [address] [id number] [place] [address] Nov, [facility] [address] [id number] [place] [address] Oct, [facility] [address] [id number] [place] [address] Sep, [facility] [address] [id number] [place] [address] Aug, [facility] [address] [id number] [place] [address] Aug, [facility] [address] [id number] [place] [address] Aug, [facility] [address] [id number] [place] [address] Aug, [facility] [address] [id number] [place] [address] Aug, [facility] [address] [id number] [place] [address] Jul, [facility] [address] [id number] [place] [address] Jul, [facility] [address] [id number] [place] [address] 28 Jun, 2011 [facility] [address] [id number] [place] [address] 04 Jun, 2011 [facility] [address] [id number] [place] [address] Jun, [facility] [address] [id number] [place] [address] May, [facility] [address] [id number] [place] [address] May, [facility] [address] [id number] [place] [address] 16 Oct, 2010 [facility] [address] [id number] [place] [address] Oct, [facility] [address] [id number] [place] [address] 29 Jul, 2010 [facility] [address] [id number] [place] [address] 08 Jul, 2010 [facility] [address] [id number] [place] [address] Jul, [facility] [address] [id number] [place] [address] Jul, [facility] [address] [id number] [place] [address] Jul, [facility] [address] [id number] [place] [address] Jun, [facility] [address] [id number] [place] [address] Jun, [facility] [address] [id number] [place] [address] Jun, [facility] [address] [id number] [place] [address] May, [facility] [address] [id number] [place] [address] 16 Mar, 2010 IMMUNIZATIONS No Known Immunizations [...]
--- OUTSIDE RECORDS SUMMARY | 2019-11-28 22:47 | XMS REPORT ---
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 Name Role Phone LAURIE LYLE Unavailable PROBLEMS Type Condition ICD9-CM Code [id number] Code Onset Dates Condition S tatus SNOMED Code Problem COPD (chronic obstructive pulmonary disease) J44.9 Active 15052603 Problem Diabetes E11.9 Active 18033480 Problem Diabetic neuropathy E11.40 Active 581456439 Problem Arthritis M19.90 Active 0329021 ALLERGIES No Information ENCOUNTERS Encounter Location Date Diagnosis [place] [address] [address] December, [facility] [address] [address] Aug, Arthritis M19.90 [facility] [address] [address] Jul, [facility] [address] [address] Jul, [facility] [address] [address] Jul, [facility] [address] [address] Jul, [facility] [address] [address] Jul, Diabetes E11.9 ; Diabetic neuropathy E11 .40 ; Arthritis M19.90 and COPD (chronic obstructive pulmonary disease) J44.9 [facility] [address] [address] Jul, [facility] [address] [address] Jun, 2014 [facility] [address] [facility] [id number] [place] [address] 23 Jun, 2014 [facility] [address] [id number] [place] [address] 17 Jun, 2014 [facility] [address] [id number] [place] [address] 10 Jun, 2014 [facility] [address] [id number] [place] [address] 15 May, 2015 [facility] [address] [facility] [id number] [place] [address] 13 May, 2015 [facility] [address] [id number] [place] [address] 07 May, 2014 [facility] [address] [id number] [place] [address] 22 Sep, 2014 [facility] [address] [id number] [place] [address] 21 Sep, 2014 [facility] [address] [id number] [place] [address] 21 Sep, 2014 [facility] [address] [id number] [place] [address] 15 Sep, 2014 [facility] [address] [id number] [place] [address] 11 Sep, 2014 [facility] [address] [id number] [place] [address] 09 Sep, 2014 [facility] [address] [id number] [place] [address] 08 Sep, 2014 [facility] [address] [id number] [place] [address] 03 Sep, 2014 [facility] [address] [id number] [place] [address] 02 Sep, 2014 [facility] [address] [id number] [place] [address] 31 Mar, 2014 [facility] [address] [place] [id number] [place] [address] Mar, [facility] [address] [address] Mar, [facility] [address] [address] Mar, [facility] [address] [address] Mar, [facility] [address] [address] Mar, Diabetes mellitus 250.00 ; COPD (chronic obstructive pulmonary disease) 496 ; Anxiety 300.00 and Arthritis 716.90 [facility] [address] [address] Feb, [facility] [address] [address] Feb, [facility] [address] [address] Feb, [facility] [address] [address] Feb, [facility] [address] [address] Jan, Seborrheic keratosis 702.19 and Nevus 21 6.9 [facility] [address] [address] Jan, [facility] [address] [address] Jan, Routine gynecological examination V72.31 ; Breast cancer screening V76.10 ; Hot flashes 627.2 ; Atypical nevi 216.9 and Constipation 564.00 [facility] [address] [address] Jan, [facility] [address] [address] December, [facility] [address] [address] 05 Dec, 2014 [facility] [address] [facility] [id number] [facility] [place] [address] 14 Nov, 2014 [facility] [address] [facility] [id number] [facility] [place] [address] 13 Nov, 2014 [facility] [address] [id number] [place] [address] 23 Oct, 2014 [facility] [address] [facility] [id number] [place] [address] 23 Oct, 2014 [facility] [address] [facility] [id number] [place] [address] 18 Oct, 2014 [facility] [address] [id number] [place] [address] 18 Oct, 2014 [facility] [address] [id number] [place] [address] 17 Oct, 2014 [facility] [address] [id number] [place] [address] 17 Oct, 2014 [facility] [address] [id number] [place] [address] 16 Oct, 2014 [facility] [address] [id number] [place] [address] 16 Oct, 2014 [facility] [address] [id number] [place] [address] 11 Oct, 2014 [facility] [address] [id number] [place] [address] Oct, [facility] [address] [facility] [id number] [place] [address] Sep, [facility] [address] [id number] [place] [address] Sep, [facility] [address] [id number] [place] [address] 19 Sep, 2014 [facility] [address] [id number] [place] [address] 18 Sep, 2014 [facility] [address] [id number] [place] [address] 18 Sep, 2014 [facility] [address] [id number] [place] [address] Sep, [facility] [address] [id number] [place] [address] Sep, [facility] [address] [id number] [place] [address] Aug, [facility] [address] [id number] [place] [address] Aug, [facility] [address] [id number] [place] [address] Aug, [facility] [address] [id number] [place] [address] Aug, [facility] [address] [id number] [place] [address] Aug, [facility] [address] [id number] [place] [address] Aug, [facility] [address] [id number] [place] [address] Jul, [facility] [address] [id number] [place] [address] Jul, [facility] [address] [id number] [place] [address] Jul, [facility] [address] [id number] [place] [address] Jul, [facility] [address] [id number] [place] [address] 08 Jul, 2014 [facility] [address] [id number] [place] [address] Jun, [facility] [address] [id number] [place] [address] Jun, [facility] [address] [id number] [place] [address] Jun, [facility] [address] [id number] [place] [address] Jun, [facility] [address] [id number] [place] [address] Jun, [facility] [address] [id number] [place] [address] Jun, [facility] [address] [id number] [place] [address] May, [facility] [address] [id number] [place] [address] May, [facility] [address] [id number] [place] [address] May, [facility] [address] [id number] [place] [address] May, [facility] [address] [id number] [place] [address] May, [facility] [address] [id number] [place] [address] May, [facility] [address] [id number] [place] [address] May, [facility] [address] [id number] [place] [address] May, [facility] [address] [id number] [place] [address] May, [facility] [address] [id number] [place] [address] Apr, 2013 [facility] [address] [id number] [place] [address] Apr, 2013 [facility] [address] [id number] [place] [address] Apr, 2013 [facility] [address] [id number] [place] [address] Apr, 2013 [facility] [address] [id number] [facility] [place] [address] Mar, [facility] [address] [id number] [facility] [place] [address] Mar, [facility] [address] [facility] [id number] [facility] [place] [address] Mar, [facility] [address] [facility] [id number] [facility] [place] [address] Mar, [facility] [address] [facility] [id number] [facility] [place] [address] Mar, [facility] [address] [facility] [id number] [facility] [place] [address] Mar, [facility] [address] [facility] [id number] [place] [address] Feb, [facility] [address] [id number] [place] [address] Feb, [facility] [address] [id number] [place] [address] Feb, [facility] [address] [facility] [id number] [facility] [place] [address] Feb, [facility] [address] [facility] [id number] [place] [address] Feb, [facility] [address] [id number] [place] [address] Feb, [facility] [address] [facility] [id number] [place] [address] Feb, [facility] [address] [facility] [id number] [place] [address] Feb, [facility] [address] [id number] [place] [address] Feb, [facility] [address] [facility] [id number] [place] [address] Feb, [facility] [address] [id number] [place] [address] Feb, [facility] [address] [id number] [place] [address] Feb, 2013 [facility] [address] [id number] [place] [address] Jan, [facility] [address] [id number] [place] [address] Jan, [facility] [address] [id number] [place] [address] Jan, [facility] [address] [facility] [id number] [place] [address] Jan, [facility] [address] [id number] [place] [address] Jan, [facility] [address] [id number] [place] [address] Jan, [facility] [address] [id number] [place] [address] Jan, [facility] [address] [id number] [place] [address] Jan, [facility] [address] [id number] [place] [address] Jan, [facility] [address] [id number] [place] [address] Jan, [facility] [address] [id number] [place] [address] Jan, [facility] [address] [id number] [place] [address] Jan, [facility] [address] [id number] [place] [address] Jan, [facility] [address] [id number] [place] [address] Jan, [facility] [address] [id number] [place] [address] Jan, [facility] [address] [id number] [place] [address] Jan, [facility] [address] [id number] [facility] [place] [address] Jan, [facility] [address] [id number] [facility] [place] [address] December, [facility] [address] [id number] [facility] [place] [address] December, [facility] [address] [id number] [facility] [place] [address] December, [facility] [address] [id number] [facility] [place] [address] December, [facility] [address] [id number] [place] [address] December, [facility] [address] [id number] [place] [address] December, [facility] [address] [id number] [place] [address] Nov, [facility] [address] [id number] [facility] [place] [address] Nov, [facility] [address] [id number] [place] [address] Nov, [facility] [address] [id number] [place] [address] Nov, [facility] [address] [id number] [place] [address] Nov, [facility] [address] [id number] [place] [address] Nov, [facility] [address] [id number] [place] [address] Nov, [facility] [address] [id number] [place] [address] Nov, [facility] [address] [id number] [place] [address] Nov, [facility] [address] [id number] [facility] [place] [address] 07 Nov, 2013 [facility] [address] [facility] [id number] [place] [address] Nov, [facility] [address] [facility] [id number] [place] [address] Nov, [facility] [address] [id number] [place] [address] Nov, [facility] [address] [facility] [id number] [place] [address] Nov, [facility] [address] [facility] [id number] [place] [address] Nov, [facility] [address] [id number] [place] [address] Nov, [facility] [address] [id number] [place] [address] Oct, [facility] [address] [id number] [place] [address] Oct, [facility] [address] [facility] [id number] [place] [address] Oct, [facility] [address] [id number] [place] [address] Oct, [facility] [address] [id number] [place] [address] Oct, [facility] [address] [id number] [place] [address] Oct, [facility] [address] [facility] [id number] [place] [address] Oct, [facility] [address] [id number] [place] [address] Oct, [facility] [address] [id number] [place] [address] Sep, [facility] [address] [id number] [place] [address] Sep, [facility] [address] [id number] [place] [address] Sep, [facility] [address] [id number] [place] [address] Sep, [facility] [address] [id number] [place] [address] Sep, [facility] [address] [id number] [place] [address] Sep, [facility] [address] [id number] [place] [address] Aug, [facility] [address] [id number] [place] [address] Aug, [facility] [address] [id number] [place] [address] Aug, [facility] [address] [id number] [place] [address] Aug, [facility] [address] [id number] [place] [address] Aug, [facility] [address] [id number] [place] [address] Aug, [facility] [address] [id number] [place] [address] Aug, [facility] [address] [id number] [place] [address] Aug, [facility] [address] [id number] [place] [address] Jul, [facility] [address] [id number] [place] [address] Jul, [facility] [address] [id number] [place] [address] Jul, [facility] [address] [id number] [place] [address] Jul, [facility] [address] [id number] [place] [address] 30 Jul, 2012 [facility] [address] [id number] [place] [address] 30 Jul, 2013 [facility] [address] [id number] [place] [address] Jul, [facility] [address] [id number] [place] [address] Jul, [facility] [address] [id number] [place] [address] Jul, [facility] [address] [id number] [place] [address] 14 Jun, 2013 [facility] [address] [id number] [place] [address] 14 Jun, 2013 [facility] [address] [id number] [place] [address] Jun, [facility] [address] [id number] [place] [address] Jun, [facility] [address] [id number] [place] [address] Jun, [facility] [address] [id number] [place] [address] 07 Jun, 2013 [facility] [address] [id number] [place] [address] 31 May, 2013 [facility] [address] [id number] [place] [address] 31 May, 2013 [facility] [address] [id number] [place] [address] 17 May, 2013 [facility] [address] [id number] [place] [address] 17 May, 2013 [facility] [address] [id number] [place] [address] 14 May, 2013 [facility] [address] [id number] [place] [address] 14 May, 2013 [facility] [address] [id number] [place] [address] 10 May, 2012 [facility] [address] [id number] [place] [address] 10 May, 2012 [facility] [address] [id number] [place] [address] 07 May, 2012 [facility] [address] [id number] [place] [address] 20 Sep, 2012 [facility] [address] [id number] [place] [address] 19 Sep, 2012 [facility] [address] [id number] [place] [address] 12 Apr, 2012 [facility] [address] [id number] [place] [address] 24 Sep, 2011 [facility] [address] [id number] [place] [address] 21 Sep, 2011 [facility] [address] [id number] [place] [address] 21 Sep, 2011 [facility] [address] [id number] [place] [address] 14 Sep, 2011 [facility] [address] [id number] [place] [address] 10 Sep, 2011 [facility] [place] [facility] [address] [id number] [place] [address] 06 Sep, 2011 [facility] [place] [facility] [address] [facility] [id number] [place] [address] 04 Sep, 2011 [facility] [place] [facility] [address] [id number] [place] [address] 31 Mar, 2011 [facility] [place] [facility] [address] [id number] [place] [address] 28 Mar, 2011 [facility] [place] [facility] [id number] [place] [address] 27 Mar, 2011 [facility] [place] [facility] [id number] [place] [address] Mar, [facility] [place] [facility] [address] [facility] [id number] [place] [address] Mar, [facility] [place] [facility] [address] [facility] [id number] [facility] [place] [address] Mar, [facility] [place] [facility] [id number] [place] [address] Feb, [facility] [place] [facility] [id number] [place] [address] Feb, [facility] [place] [facility] [address] [facility] [id number] [facility] [place] [address] Feb, [facility] [place] [facility] [id number] [place] [address] Jan, [facility] [place] [facility] [address] [id number] [place] [address] Jan, [facility] [place] [facility] [id number] [place] [address] Jan, [facility] [place] [facility] [id number] [place] [address] Jan, [facility] [place] [facility] [address] [facility] [id number] [place] [address] Jan, [facility] [place] [facility] [id number] [place] [address] Jan, [facility] [place] [facility] [id number] [place] [address] Jan, [facility] [place] [facility] [id number] [place] [address] Jan, [facility] [place] [facility] [id number] [place] [address] December, [facility] [place] [facility] [id number] [place] [address] December, [facility] [place] [facility] [id number] [place] [address] December, [facility] [place] [facility] [id number] [place] [address] December, [facility] [place] [facility] [address] [id number] [place] [address] December, [facility] [place] [facility] [id number] [place] [address] December, [facility] [place] [facility] [id number] [place] [address] 13 Nov, 2011 [facility] [place] [facility] [id number] [place] [address] 13 Nov, 2011 [facility] [place] [facility] [id number] [place] [address] Nov, [facility] [place] [facility] [id number] [place] [address] 13 Nov, 2011 [facility] [place] [facility] [id number] [place] [address] Nov, [facility] [place] [facility] [id number] [place] [address] Oct, [facility] [place] [facility] [id number] [place] [address] Sep, [facility] [place] [facility] [id number] [place] [address] Aug, [facility] [place] [facility] [address] [id number] [place] [address] Aug, [facility] [place] [facility] [address] [id number] [place] [address] Aug, [facility] [place] [facility] [address] [facility] [id number] [place] [address] Aug, [facility] [place] [facility] [address] [id number] [place] [address] Aug, [facility] [place] [facility] [id number] [place] [address] Jul, [facility] [place] [facility] [address] [id number] [place] [address] Jul, [facility] [place] [facility] [address] [id number] [place] [address] 28 Jun, 2011 [facility] [place] [facility] [id number] [place] [address] 04 Jun, 2011 [facility] [place] [facility] [id number] [place] [address] Jun, [facility] [place] [facility] [id number] [place] [address] May, [facility] [place] [facility] [id number] [place] [address] May, [facility] [place] [facility] [id number] [place] [address] 16 Oct, 2010 [facility] [place] [facility] [id number] [place] [address] Oct, [facility] [place] [facility] [id number] [place] [address] 29 Jul, 2010 [facility] [place] [facility] [id number] [place] [address] 08 Jul, 2010 [facility] [place] [facility] [address] [id number] [place] [address] Jul, [facility] [place] [facility] [id number] [place] [address] Jul, [facility] [place] [facility] [id number] [place] [address] Jul, [facility] [place] [facility] [address] [id number] [place] [address] Jun, [facility] [place] [facility] [id number] [place] [address] Jun, [facility] [place] [facility] [id number] [place] [address] Jun, [facility] [place] [facility] [id number] [place] [address] May, [facility] [place] [facility] [id number] [place] [address] 16 Mar, 2010 IMMUNIZATIONS No Known Immunizations [...]
--- OUTSIDE RECORDS SUMMARY | 2019-11-28 22:48 | XMS REPORT ---
Author Author Caren LYLE Organization [facility] Address [address] [place] [address] Care Team Providers Care Camper Assembler Name Role Phone LAURIE LYLE Unavailable PROBLEMS Type Condition ICD9-CM Code YTZ76-NI Code Onset Dates Condition S tatus SNOMED Code Problem COPD (chronic obstructive pulmonary disease) J44.9 Active 26286096 Problem Diabetes E11.9 Active 64214821 Problem Diabetic neuropathy E11.40 Active 642670442 Problem Arthritis M19.90 Active [id number] ALLERGIES No Information ENCOUNTERS Encounter Location Date Diagnosis [facility] [address] [facility] [id number] [address] [place] [address] December, [facility] [address] [id number] [address] [place] [address] Aug, Arthritis M19.90 [facility] [address] [facility] [id number] [address] [place] [address] Jul, [facility] [address] [facility] [id number] [address] [place] [address] Jul, [facility] [address] [facility] [id number] [address] [place] [address] Jul, [facility] [address] [id number] [address] [place] [address] Jul, [facility] [address] [facility] [id number] [address] [place] [address] Jul, Diabetes E11.9 ; Diabetic ne uropathy E11.40 ; Arthritis M19.90 and COPD (chronic obstructive pulmonary disease) J44.9 [facility] [address] [facility] [id number] [address] [place] [address] Jul, [facility] [address] [id number] [address] [place] [address], [place] [address] 23 Jun, 2015 [facility] [address] [id number] [address] [place] [address], [place] [address] 23 Jun, 2015 [facility] [address] [id number] [address] [place] [address], [place] [address] 17 Jun, 2014 [facility] [address] [id number] [address] [place] [address], [place] [address] 10 Jun, 2014 [facility] [address] [id number] [address] [place] [address], [place] [address] 15 May, 2015 [facility] [address] [id number] [address] [place] [address], [place] [address] 13 May, 2015 [facility] [address] [id number] [address] [place] [address], [place] [address] 07 May, 2015 [facility] [address] [id number] [address] [place] [address], [place] [address] 22 Sep, 2014 [facility] [address] [id number] [address] [place] [address], [place] [address] 21 Sep, 2014 [facility] [address] [id number] [address] [place] [address], [place] [address] 21 Sep, 2014 [facility] [address] [id number] [address] [place] [address], [place] [address] 15 Sep, 2014 [facility] [address] [id number] [address] [place] [address], [place] [address] 11 Sep, 2014 [facility] [address] [id number] [address] [place] [address], [place] [address] 09 Sep, 2014 [facility] [address] [id number] [address] [place] [address], [place] [address] 08 Sep, 2014 [facility] [address] [id number] [address] [place] [address], [place] [address] 03 Sep, 2014 [facility] [address] [id number] [address] [place] [address] [address] Apr, [facility] [address] [facility] [id number] [address] [place] [address] Mar, [facility] [address] [facility] [id number] [address] [place] [address] Mar, [facility] [address] [facility] [id number] [address] [place] [address] Mar, [facility] [address] [facility] [id number] [address] [place] [address] Mar, [facility] [address] [facility] [id number] [address] [place] [address] Mar, [facility] [address] [facility] [id number] [address] [place] [address] Mar, Diabetes mellitus 250.00 ; C OPD (chronic obstructive pulmonary disease) 496 ; Anxiety 300.00 and Arthritis 716.90 [facility] [address] [facility] [id number] [address] [place] [address] Feb, [facility] [address] [facility] [id number] [address] [place] [address] Feb, [facility] [address] [facility] [id number] [address] [place] [address] Feb, [facility] [address] [facility] [id number] [address] [place] [address] Feb, [facility] [address] [facility] [id number] [address] [place] [address] Jan, Seborrheic keratosis 702.19 and Nevus 216.9 [facility] [address] [facility] [id number] [address] [place] [address] Jan, [facility] [address] [facility] [id number] [address] [place] [address] Jan, Routine gynecological examin ation V72.31 ; Breast cancer screening V76.10 ; Hot flashes 627.2 ; Atypical nevi 216.9 and Constipation 564.00 [facility] [address] [id number] [address] [place] [address], [place] [address] Jan, [facility] [address] [id number] [address] [place] [address], [place] [address] December, [facility] [address] [id number] [address] [place] [address], [place] [address] December, [facility] [address] [id number] [address] [place] [address], [place] [address] Nov, [facility] [address] [id number] [address] [place] [address], [place] [address] Nov, [facility] [address] [id number] [address] [place] [address], [place] [address] Oct, [facility] [address] [id number] [address] [place] [address], [place] [address] 23 Oct, 2014 [facility] [address] [id number] [address] [place] [address], [place] [address] 18 Oct, 2014 [facility] [address] [id number] [address] [place] [address], [place] [address] 18 Oct, 2014 [facility] [address] [id number] [address] [place] [address], [place] [address] 17 Oct, 2014 [facility] [address] [id number] [address] [place] [address], [place] [address] 17 Oct, 2014 [facility] [address] [id number] [address] [place] [address] 16 Oct, 2014 [facility] [address] [id number] [address] [place] [address], [place] [address] 16 Oct, 2014 [facility] [address] [id number] [address] [place] [address], [place] [address] 11 Oct, 2014 [facility] [address] [id number] [address] [place] [address], [place] [address] 11 Oct, 2014 [facility] [address] [id number] [address] [place] [address], [place] [address] Sep, 2014 [facility] [address] [id number] [address] [place] [address], [place] [address] Sep, 2014 [facility] [address] [id number] [address] [place] [address], [place] [address] 19 Sep, 2014 [facility] [address] [id number] [address] [place] [address], [place] [address] 18 Sep, 2014 [facility] [address] [id number] [address] [place] [address], [place] [address] Sep, 2014 [facility] [address] [id number] [address] [place] [address], [place] [address] Sep, 2014 [facility] [address] [id number] [address] [place] [address], [place] [address] Sep, 2014 [facility] [address] [id number] [address] [place] [address], [place] [address] Aug, [facility] [address] [id number] [address] [place] [address], [place] [address] Aug, [facility] [address] [id number] [address] [place] [address], [place] [address] Aug, [facility] [address] [id number] [address] [place] [address], [place] [address] Aug, [facility] [address] [id number] [address] [place] [address], [place] [address] Aug, [facility] [address] [id number] [address] [place] [address], [place] [address] Aug, [facility] [address] [id number] [address] [place] [address], [place] [address] Jul, [facility] [address] [id number] [address] [place] [address], [place] [address] Jul, [facility] [address] [id number] [address] [place] [address], [place] [address] Jul, [facility] [address] [id number] [address] [place] [address], [place] [address] Jul, [facility] [address] [id number] [address] [place] [address], [place] [address] Jul, [facility] [address] [id number] [address] [place] [address], [place] [address] Jun, [facility] [address] [id number] [address] [place] [address], [place] [address] Jun, [facility] [address] [id number] [address] [place] [address], [place] [address] Jun, [facility] [address] [id number] [address] [place] [address], [place] [address] Jun, [facility] [address] [id number] [address] [place] [address], [place] [address] Jun, [facility] [address] [id number] [address] [place] [address], [place] [address] Jun, [facility] [address] [id number] [address] [place] [address], [place] [address] May, [facility] [address] [id number] [address] [place] [address], [place] [address] May, [facility] [address] [id number] [address] [place] [address], [place] [address] May, [facility] [address] [id number] [address] [place] [address] May, [facility] [address] [id number] [address] [place] [address], [place] [address] May, [facility] [address] [id number] [address] [place] [address], [place] [address] May, [facility] [address] [id number] [address] [place] [address], [place] [address] May, [facility] [address] [id number] [address] [place] [address], [place] [address] May, [facility] [address] [id number] [address] [place] [address], [place] [address] May, [facility] [address] [id number] [address] [place] [address], [place] [address] Apr, [facility] [address] [id number] [address] [place] [address], [place] [address] Apr, [facility] [address] [id number] [address] [place] [address], [place] [address] Apr, [facility] [address] [id number] [address] [place] [address], [place] [address] Apr, [facility] [address] [id number] [address] [place] [address], [place] [address] Mar, [facility] [address] [id number] [address] [place] [address], [place] [address] Mar, [facility] [address] [id number] [address] [place] [address], [place] [address] Mar, [facility] [address] [id number] [address] [place] [address], [place] [address] Mar, [facility] [address] [id number] [address] [place] [address], [place] [address] Mar, [facility] [address] [id number] [address] [place] [address], [place] [address] Mar, [facility] [address] [id number] [address] [place] [address], [place] [address] Feb, [facility] [address] [id number] [address] [place] [address], [place] [address] Feb, [facility] [address] [id number] [address] [place] [address], [place] [address] Feb, [facility] [address] [id number] [address] [place] [address], [place] [address] Feb, [facility] [address] [id number] [facility] [place] [address] Feb, 2013 [facility] [address] [id number] [facility] [place] [address] Feb, [facility] [address] [id number] [address] [place] [address], [place] [address] Feb, 2013 [facility] [address] [id number] [address] [place] [address], [place] [address] Feb, 2013 [facility] [address] [id number] [address] [place] [address], [place] [address] Feb, 2013 [facility] [address] [id number] [address] [place] [address], [place] [address] Feb, [facility] [address] [id number] [address] [place] [address], [place] [address] Feb, [facility] [address] [id number] [address] [place] [address], [place] [address] Feb, [facility] [address] [id number] [address] [place] [address], [place] [address] Jan, [facility] [address] [id number] [address] [place] [address], [place] [address] Jan, [facility] [address] [id number] [address] [place] [address], [place] [address] Jan, [facility] [address] [id number] [address] [place] [address], [place] [address] Jan, [facility] [address] [id number] [address] [place] [address], [place] [address] Jan, [facility] [address] [id number] [address] [place] [address], [place] [address] Jan, [facility] [address] [id number] [address] [place] [address], [place] [address] Jan, [facility] [address] [id number] [address] [place] [address], [place] [address] Jan, [facility] [address] [id number] [address] [place] [address], [place] [address] Jan, [facility] [address] [id number] [address] [place] [address], [place] [address] Jan, [facility] [address] [id number] [address] [place] [address], [place] [address] Jan, [facility] [address] [id number] [address] [place] [address], [place] [address] Jan, [facility] [address] [id number] [address] [place] [address], [place] [address] Jan, [facility] [address] [id number] [address] [place] [address], [place] [address] Jan, [facility] [address] [id number] [address] [place] [address], [place] [address] Jan, [facility] [address] [id number] [address] [place] [address], [place] [address] Jan, [facility] [address] [id number] [address] [place] [address], [place] [address] Jan, [facility] [address] [id number] [address] [place] [address], [place] [address] December, [facility] [address] [id number] [address] [place] [address], [place] [address] December, [facility] [address] [id number] [address] [place] [address], [place] [address] December, [facility] [address] [id number] [address] [place] [address], [place] [address] December, [facility] [address] [id number] [address] [place] [address], [place] [address] December, [facility] [address] [id number] [address] [place] [address], [place] [address] December, [facility] [address] [id number] [address] [place] [address], [place] [address] Nov, [facility] [address] [id number] [address] [place] [address], [place] [address] Nov, [facility] [address] [id number] [address] [place] [address], [place] [address] Nov, [facility] [address] [id number] [address] [place] [address], [place] [address] Nov, [facility] [address] [id number] [address] [place] [address], [place] [address] Nov, [facility] [address] [id number] [address] [place] [address], [place] [address] Nov, [facility] [address] [id number] [address] [place] [address], [place] [address] Nov, [facility] [address] [id number] [address] [place] [address], [place] [address] Nov, [facility] [address] [id number] [address] [place] [address], [place] [address] Nov, [facility] [address] [id number] [address] [place] [address], [place] [address] Nov, [facility] [address] [id number] [address] [place] [address], [place] [address] Nov, [facility] [address] [id number] [address] [place] [address], [place] [address] Nov, [facility] [address] [id number] [address] [place] [address], [place] [address] Nov, [facility] [address] [id number] [address] [place] [address], [place] [address] Nov, [facility] [address] [id number] [address] [place] [address], [place] [address] Nov, [facility] [address] [id number] [address] [place] [address], [place] [address] Nov, [facility] [address] [id number] [address] [place] [address], [place] [address] Oct, [facility] [address] [id number] [address] [place] [address], [place] [address] Oct, [facility] [address] [id number] [address] [place] [address], [place] [address] Oct, [facility] [address] [id number] [address] [place] [address], [place] [address] Oct, [facility] [address] [id number] [address] [place] [address], [place] [address] Oct, [facility] [address] [id number] [address] [place] [address], [place] [address] Oct, [facility] [address] [id number] [address] [place] [address], [place] [address] Oct, [facility] [address] [id number] [address] [place] [address], [place] [address] Oct, [facility] [address] [id number] [address] [place] [address], [place] [address] Sep, [facility] [address] [id number] [address] [place] [address], [place] [address] Sep, [facility] [address] [id number] [address] [place] [address], [place] [address] Sep, [facility] [address] [id number] [address] [place] [address], [place] [address] Sep, [facility] [address] [id number] [address] [place] [address], [place] [address] Sep, [facility] [address] [id number] [address] [place] [address], [place] [address] Sep, [facility] [address] [id number] [address] [place] [address], [place] [id number] Aug, [facility] [address] [id number] [address] [place] [address], [place] [address] Aug, [facility] [address] [id number] [address] [place] [address], [place] [address] Aug, [facility] [address] [id number] [address] [place] [address], [place] [address] Aug, [facility] [address] [id number] [address] [place] [address], [place] [address] Aug, [facility] [address] [id number] [address] [place] [address], [place] [address] Aug, [facility] [address] [id number] [address] [place] [address], [place] [address] Aug, [facility] [address] [id number] [address] [place] [address], [place] [address] Aug, [facility] [address] [id number] [address] [place] [address], [place] [address] Jul, [facility] [address] [id number] [address] [place] [address], [place] [address] Jul, [facility] [address] [id number] [address] [place] [address], [place] [address] Jul, [facility] [address] [id number] [address] [place] [address], [place] [address] Jul, [facility] [address] [id number] [address] [place] [address], [place] [address] Jul, [facility] [address] [id number] [address] [place] [address], [place] [address] Jul, [facility] [address] [id number] [address] [place] [address], [place] [address] Jul, [facility] [address] [id number] [address] [place] [address], [place] [address] Jul, [facility] [address] [id number] [address] [place] [address], [place] [address] Jul, [facility] [address] [id number] [address] [place] [address], [place] [address] 14 Jun, 2013 [facility] [address] [id number] [address] [place] [address], [place] [address] 14 Jun, 2013 [facility] [address] [id number] [address] [place] [address], [place] [address] Jun, [facility] [address] [id number] [address] [place] [address], [place] [address] Jun, [facility] [address] [id number] [address] [place] [address], [place] [address] Jun, [facility] [address] [id number] [address] [place] [address], [place] [address] Jun, [facility] [address] [id number] [address] [place] [address], [place] [address] 31 May, 2013 [facility] [address] [id number] [address] [place] [address], [place] [address] 31 May, 2013 [facility] [address] [id number] [address] [place] [address], [place] [address] 17 May, 2013 [facility] [address] [id number] [address] [place] [address], [place] [address] 17 May, 2013 [facility] [address] [id number] [address] [place] [address], [place] [address] 14 May, 2013 [facility] [address] [id number] [address] [place] [address], [place] [address] 14 May, 2013 [facility] [address] [id number] [address] [place] [address], [place] [address] 10 May, 2013 [facility] [address] [id number] [address] [place] [address], [place] [address] 10 May, 2013 [facility] [address] [id number] [address] [place] [id number] 07 May, 2013 [facility] [address] [id number] [address] [place] [id number] 20 Sep, 2012 [facility] [address] [id number] [address] [place] [address], [place] [address] 19 Sep, 2012 [facility] [address] [id number] [address] [place] [address], [place] [address] 12 Apr, 2012 [facility] [address] [id number] [address] [place] [address], [place] [address] 24 Sep, 2011 [facility] [address] [id number] [address] [place] [address], [place] [address] 21 Sep, 2011 [facility] [address] [id number] [address] [place] [address], [place] [address] 21 Apr, 2011 [facility] [address] [id number] [address] [place] [address], [place] [address] 14 Apr, 2011 [facility] [address] [id number] [address] [place] [address], [place] [address] 10 Apr, 2011 [facility] [address] [id number] [address] [place] [address], [place] [address] 06 Apr, 2011 [facility] [address] [id number] [address] [place] [address], [place] [address] 04 Apr, 2011 [facility] [address] [id number] [address] [place] [address], [place] [address] 31 Mar, 2012 [facility] [address] [id number] [address] [place] [address], [place] [address] 28 Mar, 2012 [facility] [address] [id number] [address] [place] [address], [place] [address] 27 Mar, 2012 [facility] [address] [id number] [address] [place] [address], [place] [address] 10 Mar, 2012 [facility] [address] [id number] [address] [place] [address], [place] [address] 08 Mar, 2012 [facility] [address] [id number] [address] [place] [address], [place] [address] 03 Mar, 2012 [facility] [address] [id number] [address] [place] [address], [place] [address] Feb, [facility] [address] [id number] [address] [place] [address], [place] [address] Feb, [facility] [address] [id number] [address] [place] [address], [place] [address] Feb, [facility] [address] [id number] [address] [place] [address], [place] [address] Jan, [facility] [address] [id number] [address] [place] [address], [place] [address] Jan, [facility] [address] [id number] [address] [place] [address], [place] [address] Jan, [facility] [address] [id number] [address] [place] [address], [place] [address] Jan, [facility] [address] [id number] [address] [place] [address], [place] [address] Jan, [facility] [address] [id number] [address] [place] [address], [place] [address] Jan, [facility] [address] [id number] [address] [place] [address], [place] [address] Jan, [facility] [address] [id number] [address] [place] [address], [place] [address] Jan, [facility] [address] [id number] [address] [place] [address], [place] [address] December, [facility] [address] [id number] [address] [place] [address], [place] [address] December, [facility] [address] [id number] [address] [place] [address], [place] [address] December, [facility] [address] [id number] [address] [place] [address], [place] [address] December, [facility] [address] [id number] [address] [place] [address], [place] [address] December, [facility] [address] [id number] [address] [place] [address], [place] [address] December, [facility] [address] [id number] [address] [place] [address], [place] [address] 13 Nov, 2011 [facility] [address] [id number] [address] [place] [address], [place] [address] 13 Nov, 2011 [facility] [address] [id number] [address] [place] [address], [place] [address] Nov, [facility] [address] [id number] [address] [place] [address], [place] [address] Nov, [facility] [address] [id number] [address] [place] [address], [place] [address] Nov, [facility] [address] [id number] [address] [place] [address], [place] [address] Oct, [facility] [address] [id number] [address] [place] [address], [place] [address] 17 Sep, 2011 [facility] [address] [id number] [address] [place] [address], [place] [address] Aug, [facility] [address] [id number] [address] [place] [address], [place] [address] Aug, [facility] [address] [id number] [address] [place] [address], [place] [address] Aug, [facility] [address] [id number] [address] [place] [address], [place] [address] Aug, [facility] [address] [id number] [address] [place] [address], [place] [address] Aug, [facility] [address] [id number] [address] [place] [address], [place] [address] Jul, [facility] [address] [id number] [address] [place] [address], [place] [address] Jul, [facility] [address] [id number] [address] [place] [address], [place] [address] Jun, [facility] [address] [id number] [address] [place] [address], [place] [address] Jun, [facility] [address] [id number] [address] [place] [address], [place] [address] Jun, [facility] [address] [id number] [address] [place] [address], [place] [address] May, [facility] [address] [id number] [address] [place] [address], [place] [address] May, [facility] [address] [id number] [address] [place] [address], [place] [address] 16 Oct, 2010 [facility] [address] [id number] [address] [place] [address], [place] [address] Oct, [facility] [address] [id number] [address] [place] [address], [place] [address] 29 Jul, 2010 [facility] [address] [id number] [address] [place] [address], [place] [address] 08 Jul, 2010 [facility] [address] [id number] [address] [place] [address], [place] [address] Jul, [facility] [address] [id number] [address] [place] [address], [place] [address] Jul, [facility] [address] [id number] [address] [place] [address], [place] [address] Jul, [facility] [address] [id number] [address] [place] [address], [place] [address] Jun, [facility] [address] [id number] [address] [place] [address], [place] [address] Jun, [facility] [address] [id number] [address] [place] [address], [place] [address] Jun, [facility] [address] [id number] [address] [place] [address], [place] [address] May, [facility] [address] [facility] [id number] [address] [place] [address] 16 Mar, 2010 IMMUNIZATIONS No Known Immunizations [...]
--- OUTSIDE RECORDS SUMMARY | 2019-11-28 22:48 | XMS REPORT ---
Author Author Caren LYLE Organization [facility] Address [address] [place] [address] Care Team Providers Care Boiler Testing Technician Name Role Phone LAURIE LYLE Unavailable PROBLEMS Type Condition ICD9-CM Code YTP16-PC Code Onset Dates Condition S tatus SNOMED Code Problem COPD (chronic obstructive pulmonary disease) J44.9 Active 10508096 Problem Diabetes E11.9 Active 63442712 Problem Diabetic neuropathy E11.40 Active 601167305 Problem Arthritis M19.90 Active 9132415 ALLERGIES No Information ENCOUNTERS Encounter Location Date Diagnosis [facility] [address] [facility] [id number] [address] [place] [address] December, [facility] [address] [id number] [address] [place] [address] Aug, Arthritis M19.90 [facility] [address] [facility] [id number] [address] [place] [address] Jul, [facility] [address] [facility] [id number] [address] [place] [address] Jul, [facility] [address] [facility] [id number] [address] [place] [address] Jul, [facility] [address] [id number] [address] [place] [address] Jul, [facility] [address] [facility] [id number] [address] [place] [address] Jul, Diabetes E11.9 ; Diabetic ne uropathy E11.40 ; Arthritis M19.90 and COPD (chronic obstructive pulmonary disease) J44.9 [facility] [address] [facility] [id number] [address] [place] [address] Jul, [facility] [address] [id number] [address] [place] [address], [place] [address] 23 Jun, 2015 [facility] [address] [id number] [address] [place] [address], [place] [address] 23 Jun, 2015 [facility] [address] [id number] [address] [place] [address], [place] [address] 17 Jun, 2014 [facility] [address] [id number] [address] [place] [address], [place] [address] 10 Jun, 2014 [facility] [address] [id number] [address] [place] [address], [place] [address] 15 May, 2015 [facility] [address] [id number] [address] [place] [address], [place] [address] 13 May, 2015 [facility] [address] [id number] [address] [place] [address], [place] [address] 07 May, 2015 [facility] [address] [id number] [address] [place] [address], [place] [address] 22 Sep, 2014 [facility] [address] [id number] [address] [place] [address], [place] [address] 21 Sep, 2014 [facility] [address] [id number] [address] [place] [address], [place] [address] 21 Sep, 2014 [facility] [address] [id number] [address] [place] [address], [place] [address] 15 Sep, 2014 [facility] [address] [id number] [address] [place] [address], [place] [address] 11 Sep, 2014 [facility] [address] [id number] [address] [place] [address], [place] [address] 09 Sep, 2014 [facility] [address] [id number] [address] [place] [address], [place] [address] 08 Sep, 2014 [facility] [address] [id number] [address] [place] [address], [place] [address] 03 Sep, 2014 [facility] [address] [id number] [address] [place] [address] [address] Apr, [facility] [address] [facility] [id number] [address] [place] [address] Mar, [facility] [address] [facility] [id number] [address] [place] [address] Mar, [facility] [address] [facility] [id number] [address] [place] [address] Mar, [facility] [address] [facility] [id number] [address] [place] [address] Mar, [facility] [address] [facility] [id number] [address] [place] [address] Mar, [facility] [address] [facility] [id number] [address] [place] [address] Mar, Diabetes mellitus 250.00 ; C OPD (chronic obstructive pulmonary disease) 496 ; Anxiety 300.[address] [facility] [address] [facility] [id number] [address] [place] [address] Feb, [facility] [address] [facility] [id number] [address] [place] [address] Feb, [facility] [address] [facility] [id number] [address] [place] [address] Feb, [facility] [address] [facility] [id number] [address] [place] [address] Feb, [facility] [address] [facility] [id number] [address] [place] [address] Jan, Seborrheic keratosis 702.[address] [facility] [address] [facility] [id number] [address] [place] [address] Jan, [facility] [address] [facility] [id number] [address] [place] [address] Jan, Routine gynecological examin ation V72.31 ; Breast cancer screening V76.10 ; Hot flashes 627.2 ; Atypical nevi 216.9 and Constipation 564.00 [facility] [address] [id number] [address] [place] [address], [place] [address] Jan, [facility] [address] [id number] [address] [place] [address], [place] [address] December, [facility] [address] [id number] [address] [place] [address], [place] [address] December, [facility] [address] [id number] [address] [place] [address], [place] [address] Nov, [facility] [address] [id number] [address] [place] [address], [place] [address] Nov, [facility] [address] [id number] [address] [place] [address], [place] [address] Oct, [facility] [address] [id number] [address] [place] [address], [place] [address] 23 Oct, 2014 [facility] [address] [id number] [address] [place] [address], [place] [address] 18 Oct, 2014 [facility] [address] [id number] [address] [place] [address], [place] [address] 18 Oct, 2014 [facility] [address] [id number] [address] [place] [address], [place] [address] 17 Oct, 2014 [facility] [address] [id number] [address] [place] [address], [place] [address] 17 Oct, 2014 [facility] [address] [id number] [address] [place] [address] 16 Oct, 2014 [facility] [address] [id number] [address] [place] [address], [place] [address] 16 Oct, 2014 [facility] [address] [id number] [address] [place] [address], [place] [address] 11 Oct, 2014 [facility] [address] [id number] [address] [place] [address], [place] [address] 11 Oct, 2014 [facility] [address] [id number] [address] [place] [address], [place] [address] Sep, 2014 [facility] [address] [id number] [address] [place] [address], [place] [address] Sep, 2014 [facility] [address] [id number] [address] [place] [address], [place] [address] 19 Sep, 2014 [facility] [address] [id number] [address] [place] [address], [place] [address] 18 Sep, 2014 [facility] [address] [id number] [address] [place] [address], [place] [address] Sep, 2014 [facility] [address] [id number] [address] [place] [address], [place] [address] Sep, 2014 [facility] [address] [id number] [address] [place] [address], [place] [address] Sep, 2014 [facility] [address] [id number] [address] [place] [address], [place] [address] Aug, [facility] [address] [id number] [address] [place] [address], [place] [address] Aug, [facility] [address] [id number] [address] [place] [address], [place] [address] Aug, [facility] [address] [id number] [address] [place] [address], [place] [address] Aug, [facility] [address] [id number] [address] [place] [address], [place] [address] Aug, [facility] [address] [id number] [address] [place] [address], [place] [address] Aug, [facility] [address] [id number] [address] [place] [address], [place] [address] Jul, [facility] [address] [id number] [address] [place] [address], [place] [address] Jul, [facility] [address] [id number] [address] [place] [address], [place] [address] Jul, [facility] [address] [id number] [address] [place] [address], [place] [address] Jul, [facility] [address] [id number] [address] [place] [address], [place] [address] Jul, [facility] [address] [id number] [address] [place] [address], [place] [address] Jun, [facility] [address] [id number] [address] [place] [address], [place] [address] Jun, [facility] [address] [id number] [address] [place] [address], [place] [address] Jun, [facility] [address] [id number] [address] [place] [address], [place] [address] Jun, [facility] [address] [id number] [address] [place] [address], [place] [address] Jun, [facility] [address] [id number] [address] [place] [address], [place] [address] Jun, [facility] [address] [id number] [address] [place] [address], [place] [address] May, [facility] [address] [id number] [address] [place] [address], [place] [address] May, [facility] [address] [id number] [address] [place] [address], [place] [address] May, [facility] [address] [id number] [address] [place] [address] May, [facility] [address] [id number] [address] [place] [address], [place] [address] May, [facility] [address] [id number] [address] [place] [address], [place] [address] May, [facility] [address] [id number] [address] [place] [address], [place] [address] May, [facility] [address] [id number] [address] [place] [address], [place] [address] May, [facility] [address] [id number] [address] [place] [address], [place] [address] May, [facility] [address] [id number] [address] [place] [address], [place] [address] Apr, [facility] [address] [id number] [address] [place] [address], [place] [address] Apr, [facility] [address] [id number] [address] [place] [address], [place] [address] Apr, [facility] [address] [id number] [address] [place] [address], [place] [address] Apr, [facility] [address] [id number] [address] [place] [address], [place] [address] Mar, [facility] [address] [id number] [address] [place] [address], [place] [address] Mar, [facility] [address] [id number] [address] [place] [address], [place] [address] Mar, [facility] [address] [id number] [address] [place] [address], [place] [address] Mar, [facility] [address] [id number] [address] [place] [address], [place] [address] Mar, [facility] [address] [id number] [address] [place] [address], [place] [address] Mar, [facility] [address] [id number] [address] [place] [address], [place] [address] Feb, [facility] [address] [id number] [address] [place] [address], [place] [address] Feb, [facility] [address] [id number] [address] [place] [address], [place] [address] Feb, [facility] [address] [id number] [address] [place] [address], [place] [address] Feb, [facility] [address] [id number] [facility] [place] [address] Feb, 2013 [facility] [address] [id number] [facility] [place] [address] Feb, [facility] [address] [id number] [address] [place] [address], [place] [address] Feb, 2013 [facility] [address] [id number] [address] [place] [address], [place] [address] Feb, 2013 [facility] [address] [id number] [address] [place] [address], [place] [address] Feb, 2013 [facility] [address] [id number] [address] [place] [address], [place] [address] Feb, [facility] [address] [id number] [address] [place] [address], [place] [address] Feb, [facility] [address] [id number] [address] [place] [address], [place] [address] Feb, [facility] [address] [id number] [address] [place] [address], [place] [address] Jan, [facility] [address] [id number] [address] [place] [address], [place] [address] Jan, [facility] [address] [id number] [address] [place] [address], [place] [address] Jan, [facility] [address] [id number] [address] [place] [address], [place] [address] Jan, [facility] [address] [id number] [address] [place] [address], [place] [address] Jan, [facility] [address] [id number] [address] [place] [address], [place] [address] Jan, [facility] [address] [id number] [address] [place] [address], [place] [address] Jan, [facility] [address] [id number] [address] [place] [address], [place] [address] Jan, [facility] [address] [id number] [address] [place] [address], [place] [address] Jan, [facility] [address] [id number] [address] [place] [address], [place] [address] Jan, [facility] [address] [id number] [address] [place] [address], [place] [address] Jan, [facility] [address] [id number] [address] [place] [address], [place] [address] Jan, [facility] [address] [id number] [address] [place] [address], [place] [address] Jan, [facility] [address] [id number] [address] [place] [address], [place] [address] Jan, [facility] [address] [id number] [address] [place] [address], [place] [address] Jan, [facility] [address] [id number] [address] [place] [address], [place] [address] Jan, [facility] [address] [id number] [address] [place] [address], [place] [address] Jan, [facility] [address] [id number] [address] [place] [address], [place] [address] December, [facility] [address] [id number] [address] [place] [address], [place] [address] December, [facility] [address] [id number] [address] [place] [address], [place] [address] December, [facility] [address] [id number] [address] [place] [address], [place] [address] December, [facility] [address] [id number] [address] [place] [address], [place] [address] December, [facility] [address] [id number] [address] [place] [address], [place] [address] December, [facility] [address] [id number] [address] [place] [address], [place] [address] Nov, [facility] [address] [id number] [address] [place] [address], [place] [address] Nov, [facility] [address] [id number] [address] [place] [address], [place] [address] Nov, [facility] [address] [id number] [address] [place] [address], [place] [address] Nov, [facility] [address] [id number] [address] [place] [address], [place] [address] Nov, [facility] [address] [id number] [address] [place] [address], [place] [address] Nov, [facility] [address] [id number] [address] [place] [address], [place] [address] Nov, [facility] [address] [id number] [address] [place] [address], [place] [address] Nov, [facility] [address] [id number] [address] [place] [address], [place] [address] Nov, [facility] [address] [id number] [address] [place] [address], [place] [address] Nov, [facility] [address] [id number] [address] [place] [address], [place] [address] Nov, [facility] [address] [id number] [address] [place] [address], [place] [address] Nov, [facility] [address] [id number] [address] [place] [address], [place] [address] Nov, [facility] [address] [id number] [address] [place] [address], [place] [address] Nov, [facility] [address] [id number] [address] [place] [address], [place] [address] Nov, [facility] [address] [id number] [address] [place] [address], [place] [address] Nov, [facility] [address] [id number] [address] [place] [address], [place] [address] Oct, [facility] [address] [id number] [address] [place] [address], [place] [address] Oct, [facility] [address] [id number] [address] [place] [address], [place] [address] Oct, [facility] [address] [id number] [address] [place] [address], [place] [address] Oct, [facility] [address] [id number] [address] [place] [address], [place] [address] Oct, [facility] [address] [id number] [address] [place] [address], [place] [address] Oct, [facility] [address] [id number] [address] [place] [address], [place] [address] Oct, [facility] [address] [id number] [address] [place] [address], [place] [address] Oct, [facility] [address] [id number] [address] [place] [address], [place] [address] Sep, [facility] [address] [id number] [address] [place] [address], [place] [address] Sep, [facility] [address] [id number] [address] [place] [address], [place] [address] Sep, [facility] [address] [id number] [address] [place] [address], [place] [address] Sep, [facility] [address] [id number] [address] [place] [address], [place] [address] Sep, [facility] [address] [id number] [address] [place] [address], [place] [address] Sep, [facility] [address] [id number] [address] [place] [address], [place] [address] Aug, [facility] [address] [id number] [address] [place] [address], [place] [address] Aug, [facility] [address] [id number] [address] [place] [address], [place] [address] Aug, [facility] [address] [id number] [address] [place] [address], [place] [address] Aug, [facility] [address] [id number] [address] [place] [address], [place] [address] Aug, [facility] [address] [id number] [address] [place] [address], [place] [address] Aug, [facility] [address] [id number] [address] [place] [address], [place] [address] Aug, [facility] [address] [id number] [address] [place] [address], [place] [address] Aug, [facility] [address] [id number] [address] [place] [address], [place] [address] Jul, [facility] [address] [id number] [address] [place] [address], [place] [address] Jul, [facility] [address] [id number] [address] [place] [address], [place] [address] Jul, [facility] [address] [id number] [address] [place] [address], [place] [address] Jul, [facility] [address] [id number] [address] [place] [address], [place] [address] Jul, [facility] [address] [id number] [address] [place] [address], [place] [address] Jul, [facility] [address] [id number] [address] [place] [address], [place] [address] Jul, [facility] [address] [id number] [address] [place] [address], [place] [address] Jul, [facility] [address] [id number] [address] [place] [address], [place] [address] Jul, [facility] [address] [id number] [address] [place] [address], [place] [address] 14 Jun, 2013 [facility] [address] [id number] [address] [place] [address], [place] [address] 14 Jun, 2013 [facility] [address] [id number] [address] [place] [address], [place] [address] Jun, [facility] [address] [id number] [address] [place] [address], [place] [address] Jun, [facility] [address] [id number] [address] [place] [address], [place] [address] Jun, [facility] [address] [id number] [address] [place] [address], [place] [address] Jun, [facility] [address] [id number] [address] [place] [address], [place] [address] 31 May, 2013 [facility] [address] [id number] [address] [place] [address], [place] [address] 31 May, 2013 [facility] [address] [id number] [address] [place] [address], [place] [address] 17 May, 2013 [facility] [address] [id number] [address] [place] [address], [place] [address] 17 May, 2013 [facility] [address] [id number] [address] [place] [address], [place] [address] 14 May, 2013 [facility] [address] [id number] [address] [place] [address], [place] [address] 14 May, 2013 [facility] [address] [id number] [address] [place] [address], [place] [address] 10 May, 2013 [facility] [address] [id number] [address] [place] [address], [place] [address] 10 May, 2013 [facility] [address] [id number] [address] [place] [id number] 07 May, 2013 [facility] [address] [id number] [address] [place] [id number] 20 Sep, 2012 [facility] [address] [id number] [address] [place] [address], [place] [address] 19 Sep, 2012 [facility] [address] [id number] [address] [place] [address], [place] [address] 12 Apr, 2012 [facility] [address] [id number] [address] [place] [address], [place] [address] 24 Sep, 2011 [facility] [address] [id number] [address] [place] [address], [place] [address] 21 Sep, 2011 [facility] [address] [id number] [address] [place] [address], [place] [address] 21 Apr, 2011 [facility] [address] [id number] [address] [place] [address], [place] [address] 14 Apr, 2011 [facility] [address] [id number] [address] [place] [address], [place] [address] 10 Apr, 2011 [facility] [address] [id number] [address] [place] [address], [place] [address] 06 Apr, 2011 [facility] [address] [id number] [address] [place] [address], [place] [address] 04 Apr, 2011 [facility] [address] [id number] [address] [place] [address], [place] [address] 31 Mar, 2012 [facility] [address] [id number] [address] [place] [address], [place] [address] 28 Mar, 2012 [facility] [address] [id number] [address] [place] [address], [place] [address] 27 Mar, 2012 [facility] [address] [id number] [address] [place] [address], [place] [address] 10 Mar, 2012 [facility] [address] [id number] [address] [place] [address], [place] [address] 08 Mar, 2012 [facility] [address] [id number] [address] [place] [address], [place] [address] 03 Mar, 2012 [facility] [address] [id number] [address] [place] [address], [place] [address] Feb, [facility] [address] [id number] [address] [place] [address], [place] [address] Feb, [facility] [address] [id number] [address] [place] [address], [place] [address] Feb, [facility] [address] [id number] [address] [place] [address], [place] [address] Jan, [facility] [address] [id number] [address] [place] [address], [place] [address] Jan, [facility] [address] [id number] [address] [place] [address], [place] [address] Jan, [facility] [address] [id number] [address] [place] [address], [place] [address] Jan, [facility] [address] [id number] [address] [place] [address], [place] [address] Jan, [facility] [address] [id number] [address] [place] [address], [place] [address] Jan, [facility] [address] [id number] [address] [place] [address], [place] [address] Jan, [facility] [address] [id number] [address] [place] [address], [place] [address] Jan, [facility] [address] [id number] [address] [place] [address], [place] [address] December, [facility] [address] [id number] [address] [place] [address], [place] [address] December, [facility] [address] [id number] [address] [place] [address], [place] [address] December, [facility] [address] [id number] [address] [place] [address], [place] [address] December, [facility] [address] [id number] [address] [place] [address], [place] [address] December, [facility] [address] [id number] [address] [place] [address], [place] [address] December, [facility] [address] [id number] [address] [place] [address], [place] [address] 13 Nov, 2011 [facility] [address] [id number] [address] [place] [address], [place] [address] 13 Nov, 2011 [facility] [address] [id number] [address] [place] [address], [place] [address] Nov, [facility] [address] [id number] [address] [place] [address], [place] [address] Nov, [facility] [address] [id number] [address] [place] [address], [place] [address] Nov, [facility] [address] [id number] [address] [place] [address], [place] [address] Oct, [facility] [address] [id number] [address] [place] [address], [place] [address] 17 Sep, 2011 [facility] [address] [id number] [address] [place] [address], [place] [address] Aug, [facility] [address] [id number] [address] [place] [address], [place] [address] Aug, [facility] [address] [id number] [address] [place] [address], [place] [address] Aug, [facility] [address] [id number] [address] [place] [address], [place] [address] Aug, [facility] [address] [id number] [address] [place] [address], [place] [address] Aug, [facility] [address] [id number] [address] [place] [address], [place] [address] Jul, [facility] [address] [id number] [address] [place] [address], [place] [address] Jul, [facility] [address] [id number] [address] [place] [address], [place] [address] Jun, [facility] [address] [id number] [address] [place] [address], [place] [address] Jun, [facility] [address] [id number] [address] [place] [address], [place] [address] Jun, [facility] [address] [id number] [address] [place] [address], [place] [address] May, [facility] [address] [id number] [address] [place] [address], [place] [address] May, [facility] [address] [id number] [address] [place] [address], [place] [address] 16 Oct, 2010 [facility] [address] [id number] [address] [place] [address], [place] [address] Oct, [facility] [address] [id number] [address] [place] [address], [place] [address] 29 Jul, 2010 [facility] [address] [id number] [address] [place] [address], [place] [address] 08 Jul, 2010 [facility] [address] [id number] [address] [place] [address], [place] [address] Jul, [facility] [address] [id number] [address] [place] [address], [place] [address] Jul, [facility] [address] [id number] [address] [place] [address], [place] [address] Jul, [facility] [address] [id number] [address] [place] [address], [place] [address] Jun, [facility] [address] [id number] [address] [place] [address], [place] [address] Jun, [facility] [address] [id number] [address] [place] [address], [place] [address] Jun, [facility] [address] [id number] [address] [place] [address], [place] [address] May, [facility] [address] [facility] [id number] [address] [place] [address] 16 Mar, 2010 IMMUNIZATIONS No Known Immunizations SOCIAL HISTORY Never Assessed REASON FOR VISIT PLAN OF CARE VITAL SIGNS Height 60 in 2014-03-01 Weight 236 lbs 2014-03-01 Temperature 98.2 degrees Fahrenheit 2014-03-01 Heart Rate 88 bpm 2014-03-01 Respiratory Rate 24 2014-03-01 Blood pressure systolic 138 mmHg 2014-03-01 Blood pressure diastolic 78 mmHg 2014-03-01 MEDICATIONS Unknown Medications RESULTS No Results PROCEDURES Procedure Date Ordered Result Body Site MEASURE BLOOD OXYGEN LEVEL March 01, 2014 EXTREMITY STUDY March 01, 2014 INSTRUCTIONS MEDICATIONS ADMINISTERED No Known Medications MEDICAL (GENERAL) HISTORY Type Description Date Medical History Hypertension Medical History Chronic obstructive pulmonary disease Medical History Type 2 diabetes mellitus Medical History Psychiatric disorders depression Surgical History Hysterectomy total abdominal 1996 Surgical History Orthopedic Surgery Surgical History Scleral buckle Hospitalization History No Hospitalization history informati on
--- OUTSIDE RECORDS SUMMARY | 2019-11-28 22:48 | XMS REPORT ---
Author Author Caren LYLE Organization [facility] Address [address] [place] [address] Care Team Providers Care Sales Account Manager Name Role Phone LAURIE LYLE Unavailable PROBLEMS Type Condition ICD9-CM Code CYY03-CK Code Onset Dates Condition S tatus SNOMED Code Problem COPD (chronic obstructive pulmonary disease) J44.9 Active 15745859 Problem Diabetes E11.9 Active 73666457 Problem Diabetic neuropathy E11.40 Active 897780085 Problem Arthritis M19.90 Active 6701234 ALLERGIES No Information ENCOUNTERS Encounter Location Date Diagnosis [facility] [address] [facility] [id number] [address] [place] [id number] December, [facility] [address] [id number] [address] [place] [address] Aug, Arthritis M19.90 [facility] [address] [facility] [id number] [address] [place] [id number] Jul, [facility] [address] [facility] [id number] [address] [place] [id number] Jul, [facility] [address] [facility] [id number] [address] [place] [id number] Jul, [facility] [address] [id number] [address] [place] [id number] Jul, [facility] [address] [facility] [id number] [address] [place] [address] Jul, Diabetes E11.9 ; Diabetic ne uropathy E11.40 ; Arthritis M19.90 and COPD (chronic obstructive pulmonary disease) J44.9 [facility] [address] [facility] [id number] [address] [place] [address] Jul, [facility] [address] [id number] [address] [place] [address], [place] [address] 23 Jun, 2015 [facility] [address] [id number] [address] [place] [address], [place] [address] 23 Jun, 2015 [facility] [address] [id number] [address] [place] [address], [place] [address] 17 Jun, 2014 [facility] [address] [id number] [address] [place] [address], [place] [address] 10 Jun, 2014 [facility] [address] [id number] [address] [place] [address], [place] [address] 15 May, 2015 [facility] [address] [id number] [address] [place] [address], [place] [address] 13 May, 2015 [facility] [address] [id number] [address] [place] [address], [place] [address] 07 May, 2015 [facility] [address] [id number] [address] [place] [address], [place] [address] 22 Sep, 2014 [facility] [address] [id number] [address] [place] [address], [place] [address] 21 Sep, 2014 [facility] [address] [id number] [address] [place] [address], [place] [address] 21 Sep, 2014 [facility] [address] [id number] [address] [place] [address], [place] [address] 15 Sep, 2014 [facility] [address] [id number] [address] [place] [address], [place] [address] 11 Sep, 2014 [facility] [address] [id number] [address] [place] [address], [place] [address] 09 Sep, 2014 [facility] [address] [id number] [address] [place] [address], [place] [address] 08 Sep, 2014 [facility] [address] [id number] [address] [place] [address], [place] [address] 03 Sep, 2014 [facility] [address] [id number] [address] [place] [address] [address] Apr, [facility] [address] [facility] [id number] [address] [place] [phone] Mar, [facility] [address] [facility] [id number] [address] [place] [id number] Mar, [facility] [address] [facility] [id number] [address] [place] [id number] Mar, [facility] [address] [facility] [id number] [address] [place] [address] Mar, [facility] [address] [facility] [id number] [address] [place] [id number] Mar, [facility] [address] [facility] [id number] [address] [place] [address] Mar, Diabetes mellitus 250.00 ; C OPD (chronic obstructive pulmonary disease) 496 ; Anxiety 300.00 and Arthritis 716.90 [facility] [address] [facility] [id number] [address] [place] [id number] Feb, [facility] [address] [facility] [id number] [address] [place] [id number] Feb, [facility] [address] [facility] [id number] [address] [place] [id number] Feb, [facility] [address] [facility] [id number] [address] [place] [id number] Feb, [facility] [address] [facility] [id number] [address] [place] [phone] Jan, Seborrheic keratosis 702.19 and Nevus 216.9 [facility] [address] [facility] [id number] [address] [place] [address] Jan, [facility] [address] [facility] [id number] [address] [place] [address] Jan, Routine gynecological examin ation V72.31 ; Breast cancer screening V76.10 ; Hot flashes 627.2 ; Atypical nevi 216.9 and Constipation 564.00 [facility] [address] [id number] [address] [place] [address], [place] [address] Jan, [facility] [address] [id number] [address] [place] [address], [place] [address] December, [facility] [address] [id number] [address] [place] [address], [place] [address] December, [facility] [address] [id number] [address] [place] [address], [place] [address] Nov, [facility] [address] [id number] [address] [place] [address], [place] [address] Nov, [facility] [address] [id number] [address] [place] [address], [place] [address] Oct, [facility] [address] [id number] [address] [place] [address], [place] [address] 23 Oct, 2014 [facility] [address] [id number] [address] [place] [address], [place] [address] 18 Oct, 2014 [facility] [address] [id number] [address] [place] [address], [place] [address] 18 Oct, 2014 [facility] [address] [id number] [address] [place] [address], [place] [address] 17 Oct, 2014 [facility] [address] [id number] [address] [place] [address], [place] [address] 17 Oct, 2014 [facility] [address] [id number] [address] [place] [address] 16 Oct, 2014 [facility] [address] [id number] [address] [place] [address], [place] [address] 16 Oct, 2014 [facility] [address] [id number] [address] [place] [address], [place] [address] 11 Oct, 2014 [facility] [address] [id number] [address] [place] [address], [place] [address] 11 Oct, 2014 [facility] [address] [id number] [address] [place] [address], [place] [address] Sep, 2014 [facility] [address] [id number] [address] [place] [address], [place] [address] Sep, 2014 [facility] [address] [id number] [address] [place] [address], [place] [address] 19 Sep, 2014 [facility] [address] [id number] [address] [place] [address], [place] [address] 18 Sep, 2014 [facility] [address] [id number] [address] [place] [address], [place] [address] Sep, 2014 [facility] [address] [id number] [address] [place] [address], [place] [address] Sep, 2014 [facility] [address] [id number] [address] [place] [address], [place] [address] Sep, 2014 [facility] [address] [id number] [address] [place] [address], [place] [address] Aug, [facility] [address] [id number] [address] [place] [address], [place] [address] Aug, [facility] [address] [id number] [address] [place] [address], [place] [address] Aug, [facility] [address] [id number] [address] [place] [address], [place] [address] Aug, [facility] [address] [id number] [address] [place] [address], [place] [address] Aug, [facility] [address] [id number] [address] [place] [address], [place] [address] Aug, [facility] [address] [id number] [address] [place] [address], [place] [address] Jul, [facility] [address] [id number] [address] [place] [address], [place] [address] Jul, [facility] [address] [id number] [address] [place] [address], [place] [address] Jul, [facility] [address] [id number] [address] [place] [address], [place] [address] Jul, [facility] [address] [id number] [address] [place] [address], [place] [address] Jul, [facility] [address] [id number] [address] [place] [address], [place] [address] Jun, [facility] [address] [id number] [address] [place] [address], [place] [address] Jun, [facility] [address] [id number] [address] [place] [address], [place] [address] Jun, [facility] [address] [id number] [address] [place] [address], [place] [address] Jun, [facility] [address] [id number] [address] [place] [address], [place] [address] Jun, [facility] [address] [id number] [address] [place] [address], [place] [address] Jun, [facility] [address] [id number] [address] [place] [address], [place] [address] May, [facility] [address] [id number] [address] [place] [address], [place] [address] May, [facility] [address] [id number] [address] [place] [address], [place] [address] May, [facility] [address] [id number] [address] [place] [id number] May, [facility] [address] [id number] [address] [place] [address], [place] [address] May, [facility] [address] [id number] [address] [place] [address], [place] [address] May, [facility] [address] [id number] [address] [place] [address], [place] [address] May, [facility] [address] [id number] [address] [place] [address], [place] [address] May, [facility] [address] [id number] [address] [place] [address], [place] [address] May, [facility] [address] [id number] [address] [place] [address], [place] [address] Apr, [facility] [address] [id number] [address] [place] [address], [place] [address] Apr, [facility] [address] [id number] [address] [place] [address], [place] [address] Apr, [facility] [address] [id number] [address] [place] [address], [place] [address] Apr, [facility] [address] [id number] [address] [place] [address], [place] [address] Mar, [facility] [address] [id number] [address] [place] [address], [place] [address] Mar, [facility] [address] [id number] [address] [place] [address], [place] [address] Mar, [facility] [address] [id number] [address] [place] [address], [place] [address] Mar, [facility] [address] [id number] [address] [place] [address], [place] [address] Mar, [facility] [address] [id number] [address] [place] [address], [place] [address] Mar, [facility] [address] [id number] [address] [place] [address], [place] [address] Feb, [facility] [address] [id number] [address] [place] [address], [place] [address] Feb, [facility] [address] [id number] [address] [place] [address], [place] [address] Feb, [facility] [address] [id number] [address] [place] [address], [place] [address] Feb, [facility] [address] [id number] [facility] [place] [address] Feb, 2013 [facility] [address] [id number] [facility] [place] [address] Feb, [facility] [address] [id number] [address] [place] [address], [place] [address] Feb, 2013 [facility] [address] [id number] [address] [place] [address], [place] [address] Feb, 2013 [facility] [address] [id number] [address] [place] [address], [place] [address] Feb, 2013 [facility] [address] [id number] [address] [place] [address], [place] [address] Feb, [facility] [address] [id number] [address] [place] [address], [place] [address] Feb, [facility] [address] [id number] [address] [place] [address], [place] [address] Feb, [facility] [address] [id number] [address] [place] [address], [place] [address] Jan, [facility] [address] [id number] [address] [place] [address], [place] [address] Jan, [facility] [address] [id number] [address] [place] [address], [place] [address] Jan, [facility] [address] [id number] [address] [place] [address], [place] [address] Jan, [facility] [address] [id number] [address] [place] [address], [place] [address] Jan, [facility] [address] [id number] [address] [place] [address], [place] [address] Jan, [facility] [address] [id number] [address] [place] [address], [place] [address] Jan, [facility] [address] [id number] [address] [place] [address], [place] [address] Jan, [facility] [address] [id number] [address] [place] [address], [place] [address] Jan, [facility] [address] [id number] [address] [place] [address], [place] [address] Jan, [facility] [address] [id number] [address] [place] [address], [place] [address] Jan, [facility] [address] [id number] [address] [place] [address], [place] [address] Jan, [facility] [address] [id number] [address] [place] [address], [place] [address] Jan, [facility] [address] [id number] [address] [place] [address], [place] [address] Jan, [facility] [address] [id number] [address] [place] [address], [place] [address] Jan, [facility] [address] [id number] [address] [place] [address], [place] [address] Jan, [facility] [address] [id number] [address] [place] [address], [place] [address] Jan, [facility] [address] [id number] [address] [place] [address], [place] [address] December, [facility] [address] [id number] [address] [place] [address], [place] [address] December, [facility] [address] [id number] [address] [place] [address], [place] [address] December, [facility] [address] [id number] [address] [place] [address], [place] [address] December, [facility] [address] [id number] [address] [place] [address], [place] [address] December, [facility] [address] [id number] [address] [place] [address], [place] [address] December, [facility] [address] [id number] [address] [place] [address], [place] [address] Nov, [facility] [address] [id number] [address] [place] [address], [place] [address] Nov, [facility] [address] [id number] [address] [place] [address], [place] [address] Nov, [facility] [address] [id number] [address] [place] [address], [place] [address] Nov, [facility] [address] [id number] [address] [place] [address], [place] [address] Nov, [facility] [address] [id number] [address] [place] [address], [place] [address] Nov, [facility] [address] [id number] [address] [place] [address], [place] [address] Nov, [facility] [address] [id number] [address] [place] [address], [place] [address] Nov, [facility] [address] [id number] [address] [place] [address], [place] [address] Nov, [facility] [address] [id number] [address] [place] [address], [place] [address] Nov, [facility] [address] [id number] [address] [place] [address], [place] [address] Nov, [facility] [address] [id number] [address] [place] [address], [place] [address] Nov, [facility] [address] [id number] [address] [place] [address], [place] [address] Nov, [facility] [address] [id number] [address] [place] [address], [place] [address] Nov, [facility] [address] [id number] [address] [place] [address], [place] [address] Nov, [facility] [address] [id number] [address] [place] [address], [place] [address] Nov, [facility] [address] [id number] [address] [place] [address], [place] [address] Oct, [facility] [address] [id number] [address] [place] [address], [place] [address] Oct, [facility] [address] [id number] [address] [place] [address], [place] [address] Oct, [facility] [address] [id number] [address] [place] [address], [place] [address] Oct, [facility] [address] [id number] [address] [place] [address], [place] [address] Oct, [facility] [address] [id number] [address] [place] [address], [place] [address] Oct, [facility] [address] [id number] [address] [place] [address], [place] [address] Oct, [facility] [address] [id number] [address] [place] [address], [place] [address] Oct, [facility] [address] [id number] [address] [place] [address], [place] [address] Sep, [facility] [address] [id number] [address] [place] [address], [place] [address] Sep, [facility] [address] [id number] [address] [place] [address], [place] [address] Sep, [facility] [address] [id number] [address] [place] [address], [place] [address] Sep, [facility] [address] [id number] [address] [place] [address], [place] [address] Sep, [facility] [address] [id number] [address] [place] [address], [place] [address] Sep, [facility] [address] [id number] [address] [place] [address], [place] [address] Aug, [facility] [address] [id number] [address] [place] [address], [place] [address] Aug, [facility] [address] [id number] [address] [place] [address], [place] [address] Aug, [facility] [address] [id number] [address] [place] [address], [place] [address] Aug, [facility] [address] [id number] [address] [place] [address], [place] [address] Aug, [facility] [address] [id number] [address] [place] [address], [place] [address] Aug, [facility] [address] [id number] [address] [place] [address], [place] [address] Aug, [facility] [address] [id number] [address] [place] [address], [place] [address] Aug, [facility] [address] [id number] [address] [place] [address], [place] [address] Jul, [facility] [address] [id number] [address] [place] [address], [place] [address] Jul, [facility] [address] [id number] [address] [place] [address], [place] [address] Jul, [facility] [address] [id number] [address] [place] [address], [place] [address] Jul, [facility] [address] [id number] [address] [place] [address], [place] [address] Jul, [facility] [address] [id number] [address] [place] [address], [place] [address] Jul, [facility] [address] [id number] [address] [place] [address], [place] [address] Jul, [facility] [address] [id number] [address] [place] [address], [place] [address] Jul, [facility] [address] [id number] [address] [place] [address], [place] [address] Jul, [facility] [address] [id number] [address] [place] [address], [place] [address] 14 Jun, 2013 [facility] [address] [id number] [address] [place] [address], [place] [address] 14 Jun, 2013 [facility] [address] [id number] [address] [place] [address], [place] [address] Jun, [facility] [address] [id number] [address] [place] [address], [place] [address] Jun, [facility] [address] [id number] [address] [place] [address], [place] [address] Jun, [facility] [address] [id number] [address] [place] [address], [place] [address] Jun, [facility] [address] [id number] [address] [place] [address], [place] [address] 31 May, 2013 [facility] [address] [id number] [address] [place] [address], [place] [address] 31 May, 2013 [facility] [address] [id number] [address] [place] [address], [place] [address] 17 May, 2013 [facility] [address] [id number] [address] [place] [address], [place] [address] 17 May, 2013 [facility] [address] [id number] [address] [place] [address], [place] [address] 14 May, 2013 [facility] [address] [address] [id number] [address] [place] [address], [place] [id number] 14 May, 2013 [facility] [address] [id number] [address] [place] [address], [place] [address] 10 May, 2013 [facility] [address] [id number] [address] [place] [address], [place] [address] 10 May, 2013 [facility] [address] [id number] [address] [place] [id number] 07 May, 2013 [facility] [address] [id number] [address] [place] [id number] 20 Sep, 2012 [facility] [address] [id number] [address] [place] [address], [place] [address] 19 Sep, 2012 [facility] [address] [id number] [address] [place] [address], [place] [id number] 12 Apr, 2012 [facility] [address] [id number] [address] [place] [address], [place] [address] 24 Sep, 2011 [facility] [address] [id number] [address] [place] [address], [place] [address] 21 Sep, 2011 [facility] [address] [id number] [address] [place] [address], [place] [id number] 21 Apr, 2011 [facility] [address] [id number] [address] [place] [address], [place] [address] 14 Apr, 2011 [facility] [address] [id number] [address] [place] [address], [place] [id number] 10 Apr, 2011 [facility] [address] [id number] [address] [place] [address], [place] [address] 06 Apr, 2011 [facility] [address] [id number] [address] [place] [address], [place] [address] 04 Apr, 2011 [facility] [address] [id number] [address] [place] [address], [place] [address] 31 Mar, 2012 [facility] [address] [id number] [address] [place] [address], [place] [address] 28 Mar, 2012 [facility] [address] [id number] [address] [place] [address], [place] [address] 27 Mar, 2012 [facility] [address] [id number] [address] [place] [address], [place] [address] 10 Mar, 2012 [facility] [address] [id number] [address] [place] [address], [place] [address] 08 Mar, 2012 [facility] [address] [id number] [address] [place] [address], [place] [id number] 03 Mar, 2012 [facility] [address] [id number] [address] [place] [address], [place] [address] Feb, [facility] [address] [id number] [address] [place] [address], [place] [address] Feb, [facility] [address] [id number] [address] [place] [address], [place] [address] Feb, [facility] [address] [id number] [address] [place] [address], [place] [address] Jan, [facility] [address] [id number] [address] [place] [address], [place] [address] Jan, [facility] [address] [id number] [address] [place] [address], [place] [address] Jan, [facility] [address] [id number] [address] [place] [address], [place] [address] Jan, [facility] [address] [id number] [address] [place] [address], [place] [id number] Jan, [facility] [address] [id number] [address] [place] [address], [place] [address] Jan, [facility] [address] [id number] [address] [place] [address], [place] [address] Jan, [facility] [address] [id number] [address] [place] [address], [place] [address] Jan, [facility] [address] [id number] [address] [place] [address], [place] [address] December, [facility] [address] [id number] [address] [place] [address], [place] [address] December, [facility] [address] [id number] [address] [place] [address], [place] [address] December, [facility] [address] [id number] [address] [place] [address], [place] [address] December, [facility] [address] [id number] [address] [place] [address], [place] [address] December, [facility] [address] [id number] [address] [place] [address], [place] [address] December, [facility] [address] [id number] [address] [place] [address], [place] [address] 13 Nov, 2011 [facility] [address] [id number] [address] [place] [address], [place] [address] 13 Nov, 2011 [facility] [address] [id number] [address] [place] [address], [place] [address] Nov, [facility] [address] [id number] [address] [place] [address], [place] [address] Nov, [facility] [address] [id number] [address] [place] [address], [place] [address] Nov, [facility] [address] [id number] [address] [place] [address], [place] [address] Oct, [facility] [address] [id number] [address] [place] [address], [place] [address] 17 Sep, 2011 [facility] [address] [id number] [address] [place] [address], [place] [address] Aug, [facility] [address] [id number] [address] [place] [address], [place] [address] Aug, [facility] [address] [id number] [address] [place] [address], [place] [address] Aug, [facility] [address] [id number] [address] [place] [address], [place] [address] Aug, [facility] [address] [id number] [address] [place] [address], [place] [address] Aug, [facility] [address] [id number] [address] [place] [address], [place] [address] Jul, [facility] [address] [id number] [address] [place] [address], [place] [address] Jul, [facility] [address] [id number] [address] [place] [address], [place] [address] Jun, [facility] [address] [id number] [address] [place] [address], [place] [address] Jun, [facility] [address] [id number] [address] [place] [address], [place] [address] Jun, [facility] [address] [id number] [address] [place] [address], [place] [address] May, [facility] [address] [id number] [address] [place] [address], [place] [address] May, [facility] [address] [id number] [address] [place] [address], [place] [address] 16 Oct, 2010 [facility] [address] [id number] [address] [place] [address], [place] [address] Oct, [facility] [address] [id number] [address] [place] [address], [place] [address] 29 Jul, 2010 [facility] [address] [id number] [address] [place] [address], [place] [address] 08 Jul, 2010 [facility] [address] [id number] [address] [place] [address], [place] [address] Jul, [facility] [address] [id number] [address] [place] [address], [place] [address] Jul, [facility] [address] [id number] [address] [place] [address], [place] [address] Jul, [facility] [address] [id number] [address] [place] [address], [place] [address] Jun, [facility] [address] [id number] [address] [place] [address], [place] [address] Jun, [facility] [address] [id number] [address] [place] [address], [place] [address] Jun, [facility] [address] [id number] [address] [place] [address], [place] [address] May, [facility] [place] [address] [facility] [id number] [address] [place] [address] 16 Mar, 2010 IMMUNIZATIONS No Known Immunizations [...]
--- OUTSIDE RECORDS SUMMARY | 2019-11-28 22:48 | XMS REPORT ---
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 Name Role Phone LAURIE LYLE Unavailable PROBLEMS Type Condition ICD9-CM Code QXT89-HT Code Onset Dates Condition S tatus SNOMED Code Problem COPD (chronic obstructive pulmonary disease) J44.9 Active 78640909 Problem Diabetes E11.9 Active 31383178 Problem Diabetic neuropathy E11.40 Active 265956334 Problem Arthritis M19.90 Active [id number] ALLERGIES No Information ENCOUNTERS Encounter Location Date Diagnosis [facility] [address] [facility] [id number] [address] [place] [id number] December, [facility] [address] [id number] [address] [place] [id number] Aug, Arthritis M19.90 [facility] [address] [facility] [id number] [address] [place] [id number] Jul, [facility] [address] [facility] [id number] [address] [place] [id number] Jul, [facility] [address] [facility] [id number] [address] [place] [id number] Jul, [facility] [address] [id number] [address] [place] [id number] Jul, [facility] [address] [facility] [id number] [address] [place] [id number] Jul, Diabetes E11.9 ; Diabetic ne uropathy E11.40 ; Arthritis M19.90 and COPD (chronic obstructive pulmonary disease) J44.9 [facility] [address] [facility] [id number] [address] [place] [id number] Jul, [facility] [address] [id number] [address] [place] [address], [place] [address] 23 Jun, 2015 [facility] [address] [id number] [address] [place] [address], [place] [address] 23 Jun, 2015 [facility] [address] [id number] [address] [place] [address], [place] [id number] 17 Jun, 2014 [facility] [address] [id number] [address] [place] [address], [place] [id number] 10 Jun, 2014 [facility] [address] [id number] [address] [place] [address], [place] [address] 15 May, 2015 [facility] [address] [id number] [address] [place] [address], [place] [address] 13 May, 2015 [facility] [address] [id number] [address] [place] [address], [place] [id number] 07 May, 2015 [facility] [address] [id number] [address] [place] [address], [place] [address] 22 Sep, 2014 [facility] [address] [id number] [address] [place] [address], [place] [address] 21 Sep, 2014 [facility] [address] [id number] [address] [place] [address], [place] [address] 21 Sep, 2014 [facility] [address] [id number] [address] [place] [address], [place] [address] 15 Sep, 2014 [facility] [address] [id number] [address] [place] [address], [place] [id number] 11 Sep, 2014 [facility] [address] [id number] [address] [place] [address], [place] [address] 09 Sep, 2014 [facility] [address] [id number] [address] [place] [address], [place] [id number] 08 Sep, 2014 [facility] [address] [id number] [address] [place] [address], [place] [address] 03 Sep, 2014 [facility] [address] [id number] [address] [place] [address] [address] Apr, [facility] [address] [facility] [id number] [address] [place] [id number] Mar, [facility] [address] [facility] [id number] [address] [place] [id number] Mar, [facility] [address] [facility] [id number] [address] [place] [id number] Mar, [facility] [address] [facility] [id number] [address] [place] [id number] Mar, [facility] [address] [facility] [id number] [address] [place] [id number] Mar, [facility] [address] [facility] [id number] [address] [place] [id number] Mar, Diabetes mellitus 250.00 ; C OPD (chronic obstructive pulmonary disease) 496 ; Anxiety 300.00 and Arthritis 716.90 [facility] [address] [facility] [id number] [address] [place] [id number] Feb, [facility] [address] [facility] [id number] [address] [place] [id number] Feb, [facility] [address] [facility] [id number] [address] [place] [id number] Feb, [facility] [address] [facility] [id number] [address] [place] [id number] Feb, [facility] [address] [facility] [id number] [address] [place] [id number] Jan, Seborrheic keratosis 702.19 and Nevus 216.9 [facility] [address] [facility] [id number] [address] [place] [id number] Jan, [facility] [address] [facility] [id number] [address] [place] [id number] Jan, Routine gynecological examin ation V72.31 ; Breast cancer screening V76.10 ; Hot flashes 627.2 ; Atypical nevi 216.9 and Constipation 564.00 [facility] [address] [id number] [address] [place] [address], [place] [address] Jan, [facility] [address] [id number] [address] [place] [address], [place] [address] December, [facility] [address] [id number] [address] [place] [address], [place] [address] December, [facility] [address] [id number] [address] [place] [address], [place] [address] Nov, [facility] [address] [id number] [address] [place] [address], [place] [id number] Nov, [facility] [address] [id number] [address] [place] [address], [place] [address] Oct, [facility] [address] [id number] [address] [place] [address], [place] [address] 23 Oct, 2014 [facility] [address] [id number] [address] [place] [address], [place] [address] 18 Oct, 2014 [facility] [address] [id number] [address] [place] [address], [place] [address] 18 Oct, 2014 [facility] [address] [id number] [address] [place] [address], [place] [address] 17 Oct, 2014 [facility] [address] [id number] [address] [place] [address], [place] [address] 17 Oct, 2014 [facility] [address] [id number] [address] [place] [id number] 16 Oct, 2014 [facility] [address] [id number] [address] [place] [address], [place] [address] 16 Oct, 2014 [facility] [address] [id number] [address] [place] [address], [place] [address] 11 Oct, 2014 [facility] [address] [id number] [address] [place] [address], [place] [address] 11 Oct, 2014 [facility] [address] [id number] [address] [place] [address], [place] [address] Sep, 2014 [facility] [address] [id number] [address] [place] [address], [place] [address] Sep, 2014 [facility] [address] [id number] [address] [place] [address], [place] [address] 19 Sep, 2014 [facility] [address] [id number] [address] [place] [address], [place] [id number] 18 Sep, 2014 [facility] [address] [id number] [address] [place] [address], [place] [address] Sep, 2014 [facility] [address] [id number] [address] [place] [address], [place] [address] Sep, 2014 [facility] [address] [id number] [address] [place] [address], [place] [address] Sep, 2014 [facility] [address] [id number] [address] [place] [address], [place] [address] Aug, [facility] [address] [id number] [address] [place] [address], [place] [id number] Aug, [facility] [address] [id number] [address] [place] [address], [place] [address] Aug, [facility] [address] [id number] [address] [place] [address], [place] [address] Aug, [facility] [address] [id number] [address] [place] [address], [place] [address] Aug, [facility] [address] [id number] [address] [place] [address], [place] [address] Aug, [facility] [address] [id number] [address] [place] [address], [place] [address] Jul, [facility] [address] [id number] [address] [place] [address], [place] [address] Jul, [facility] [address] [id number] [address] [place] [address], [place] [address] Jul, [facility] [address] [id number] [address] [place] [address], [place] [address] Jul, [facility] [address] [id number] [address] [place] [address], [place] [address] Jul, [facility] [address] [id number] [address] [place] [address], [place] [address] Jun, [facility] [address] [id number] [address] [place] [address], [place] [address] Jun, [facility] [address] [id number] [address] [place] [address], [place] [address] Jun, [facility] [address] [id number] [address] [place] [address], [place] [address] Jun, [facility] [address] [id number] [address] [place] [address], [place] [address] Jun, [facility] [address] [id number] [address] [place] [address], [place] [address] Jun, [facility] [address] [id number] [address] [place] [address], [place] [address] May, [facility] [address] [id number] [address] [place] [address], [place] [address] May, [facility] [address] [id number] [address] [place] [address], [place] [address] May, [facility] [address] [id number] [address] [place] [id number] May, [facility] [address] [id number] [address] [place] [address], [place] [address] May, [facility] [address] [id number] [address] [place] [address], [place] [address] May, [facility] [address] [id number] [address] [place] [address], [place] [address] May, [facility] [address] [id number] [address] [place] [address], [place] [address] May, [facility] [address] [id number] [address] [place] [address], [place] [address] May, [facility] [address] [id number] [address] [place] [address], [place] [address] Apr, [facility] [address] [id number] [address] [place] [address], [place] [address] Apr, [facility] [address] [id number] [address] [place] [address], [place] [address] Apr, [facility] [address] [id number] [address] [place] [address], [place] [address] Apr, [facility] [address] [id number] [address] [place] [address], [place] [address] Mar, [facility] [address] [id number] [address] [place] [address], [place] [address] Mar, [facility] [address] [id number] [address] [place] [address], [place] [address] Mar, [facility] [address] [id number] [address] [place] [address], [place] [address] Mar, [facility] [address] [id number] [address] [place] [address], [place] [address] Mar, [facility] [address] [id number] [address] [place] [address], [place] [address] Mar, [facility] [address] [id number] [address] [place] [address], [place] [address] Feb, [facility] [address] [id number] [address] [place] [address], [place] [address] Feb, [facility] [address] [id number] [address] [place] [address], [place] [address] Feb, [facility] [address] [id number] [address] [place] [address], [place] [address] Feb, [facility] [address] [id number] [facility] [address] Feb, 2013 [facility] [address] [id number] [facility] [place] [address] Feb, [facility] [address] [id number] [address] [place] [address], [place] [address] Feb, 2013 [facility] [address] [id number] [address] [place] [address], [place] [address] Feb, 2013 [facility] [address] [id number] [address] [place] [address], [place] [address] Feb, 2013 [facility] [address] [id number] [address] [place] [address], [place] [address] Feb, [facility] [address] [id number] [address] [place] [address], [place] [address] Feb, [facility] [address] [id number] [address] [place] [address], [place] [address] Feb, [facility] [address] [id number] [address] [place] [address], [place] [address] Jan, [facility] [address] [id number] [address] [place] [address], [place] [address] Jan, [facility] [address] [id number] [address] [place] [address], [place] [address] Jan, [facility] [address] [id number] [address] [place] [address], [place] [address] Jan, [facility] [address] [id number] [address] [place] [address], [place] [address] Jan, [facility] [address] [id number] [address] [place] [address], [place] [address] Jan, [facility] [address] [id number] [address] [place] [address], [place] [address] Jan, [facility] [address] [id number] [address] [place] [address], [place] [address] Jan, [facility] [address] [id number] [address] [place] [address], [place] [address] Jan, [facility] [address] [id number] [address] [place] [address], [place] [address] Jan, [facility] [address] [id number] [address] [place] [address], [place] [address] Jan, [facility] [address] [id number] [address] [place] [address], [place] [address] Jan, [facility] [address] [id number] [address] [place] [address], [place] [address] Jan, [facility] [address] [id number] [address] [place] [address], [place] [address] Jan, [facility] [address] [id number] [address] [place] [address], [place] [address] Jan, [facility] [address] [id number] [address] [place] [address], [place] [address] Jan, [facility] [address] [id number] [address] [place] [address], [place] [address] Jan, [facility] [address] [id number] [address] [place] [address], [place] [address] December, [facility] [address] [id number] [address] [place] [address], [place] [address] December, [facility] [address] [id number] [address] [place] [address], [place] [address] December, [facility] [address] [id number] [address] [place] [address], [place] [address] December, [facility] [address] [id number] [address] [place] [address], [place] [address] December, [facility] [address] [id number] [address] [place] [address], [place] [address] December, [facility] [address] [id number] [address] [place] [address], [place] [address] Nov, [facility] [address] [id number] [address] [place] [address], [place] [address] Nov, [facility] [address] [id number] [address] [place] [address], [place] [address] Nov, [facility] [address] [id number] [address] [place] [address], [place] [address] Nov, [facility] [address] [id number] [address] [place] [address], [place] [address] Nov, [facility] [address] [id number] [address] [place] [address], [place] [address] Nov, [facility] [address] [id number] [address] [place] [address], [place] [address] Nov, [facility] [address] [id number] [address] [place] [address], [place] [address] Nov, [facility] [address] [id number] [address] [place] [address], [place] [address] Nov, [facility] [address] [id number] [address] [place] [address], [place] [address] Nov, [facility] [address] [id number] [address] [place] [address], [place] [address] Nov, [facility] [address] [id number] [address] [place] [address], [place] [address] Nov, [facility] [address] [id number] [address] [place] [address], [place] [address] Nov, [facility] [address] [id number] [address] [place] [address], [place] [address] Nov, [facility] [address] [id number] [address] [place] [address], [place] [id number] Nov, [facility] [address] [id number] [address] [place] [address], [place] [id number] Nov, [facility] [address] [id number] [address] [place] [address], [place] [id number] Oct, [facility] [address] [id number] [address] [place] [address], [place] [id number] Oct, [facility] [address] [id number] [address] [place] [address], [place] [id number] Oct, [facility] [address] [id number] [address] [place] [address], [place] [id number] Oct, [facility] [address] [id number] [address] [place] [address], [place] [id number] Oct, [facility] [address] [id number] [address] [place] [address], [place] [id number] Oct, [facility] [address] [id number] [address] [place] [address], [place] [id number] Oct, [facility] [address] [id number] [address] [place] [address], [place] [id number] Oct, [facility] [address] [id number] [address] [place] [address], [place] [id number] Sep, [facility] [address] [id number] [address] [place] [address], [place] [id number] Sep, [facility] [address] [id number] [address] [place] [address], [place] [id number] Sep, [facility] [address] [id number] [address] [place] [address], [place] [id number] Sep, [facility] [address] [id number] [address] [place] [address], [place] [id number] Sep, [facility] [address] [id number] [address] [place] [address], [place] [id number] Sep, [facility] [address] [id number] [address] [place] [address], [place] [id number] Aug, [facility] [address] [id number] [address] [place] [address], [place] [id number] Aug, [facility] [address] [id number] [address] [place] [address], [place] [id number] Aug, [facility] [address] [id number] [address] [place] [address], [place] [id number] Aug, [facility] [address] [id number] [address] [place] [address], [place] [id number] Aug, [facility] [address] [id number] [address] [place] [address], [place] [id number] Aug, [facility] [address] [id number] [address] [place] [address], [place] [id number] Aug, [facility] [address] [id number] [address] [place] [address], [place] [id number] Aug, [facility] [address] [id number] [address] [place] [address], [place] [id number] Jul, [facility] [address] [id number] [address] [place] [address], [place] [id number] Jul, [facility] [address] [id number] [address] [place] [address], [place] [id number] Jul, [facility] [address] [id number] [address] [place] [address], [place] [id number] Jul, [facility] [address] [id number] [address] [place] [address], [place] [id number] Jul, [facility] [address] [id number] [address] [place] [address], [place] [id number] Jul, [facility] [address] [id number] [address] [place] [address], [place] [id number] Jul, [facility] [address] [id number] [address] [place] [address], [place] [id number] Jul, [facility] [address] [id number] [address] [place] [address], [place] [id number] Jul, [facility] [address] [id number] [address] [place] [address], [place] [id number] 14 Jun, 2013 [facility] [address] [id number] [address] [place] [address], [place] [id number] 14 Jun, 2013 [facility] [address] [id number] [address] [place] [address], [place] [id number] Jun, [facility] [address] [id number] [address] [place] [address], [place] [id number] Jun, [facility] [address] [id number] [address] [place] [address], [place] [id number] Jun, [facility] [address] [id number] [address] [place] [address], [place] [id number] Jun, [facility] [address] [id number] [address] [place] [address], [place] [id number] 31 May, 2013 [facility] [address] [id number] [address] [place] [address], [place] [id number] 31 May, 2013 [facility] [address] [id number] [address] [place] [address], [place] [id number] 17 May, 2013 [facility] [address] [id number] [address] [place] [address], [place] [id number] 17 May, 2013 [facility] [address] [id number] [address] [place] [address], [place] [id number] 14 May, 2013 [facility] [address] [id number] [address] [place] [address], [place] [id number] 14 May, 2013 [facility] [address] [id number] [address] [place] [address], [place] [id number] 10 May, 2013 [facility] [address] [id number] [address] [place] [address], [place] [id number] 10 May, 2013 [facility] [address] [id number] [address] [place] [id number] 07 May, 2013 [facility] [address] [id number] [address] [place] [id number] 20 Sep, 2012 [facility] [address] [id number] [address] [place] [address], [place] [id number] 19 Sep, 2012 [facility] [address] [id number] [address] [place] [address], [place] [id number] 12 Apr, 2012 [facility] [address] [id number] [address] [place] [address], [place] [id number] 24 Sep, 2011 [facility] [address] [id number] [address] [place] [address], [place] [id number] 21 Sep, 2011 [facility] [address] [id number] [address] [place] [address], [place] [id number] 21 Apr, 2011 [facility] [address] [id number] [address] [place] [address], [place] [id number] 14 Apr, 2011 [facility] [address] [id number] [address] [place] [address], [place] [id number] 10 Apr, 2011 [facility] [address] [id number] [address] [place] [address], [place] [id number] 06 Apr, 2011 [facility] [address] [id number] [address] [place] [address], [place] [id number] 04 Apr, 2011 [facility] [address] [id number] [address] [place] [address], [place] [id number] 31 Mar, 2012 [facility] [address] [id number] [address] [place] [address], [place] [id number] 28 Mar, 2012 [facility] [address] [id number] [address] [place] [address], [place] [id number] 27 Mar, 2012 [facility] [address] [id number] [address] [place] [address], [place] [id number] 10 Mar, 2012 [facility] [address] [id number] [address] [place] [address], [place] [id number] 08 Mar, 2012 [facility] [address] [id number] [address] [place] [address], [place] [id number] 03 Mar, 2012 [facility] [address] [id number] [address] [place] [address], [place] [id number] Feb, [facility] [address] [id number] [address] [place] [address], [place] [id number] Feb, [facility] [address] [id number] [address] [place] [address], [place] [id number] Feb, [facility] [address] [id number] [address] [place] [address], [place] [id number] Jan, [facility] [address] [id number] [address] [place] [address], [place] [id number] Jan, [facility] [address] [id number] [address] [place] [address], [place] [id number] Jan, [facility] [address] [id number] [address] [place] [address], [place] [id number] Jan, [facility] [address] [id number] [address] [place] [address], [place] [id number] Jan, [facility] [address] [id number] [address] [place] [address], [place] [id number] Jan, [facility] [address] [id number] [address] [place] [address], [place] [id number] Jan, [facility] [address] [id number] [address] [place] [address], [place] [id number] Jan, [facility] [address] [id number] [address] [place] [address], [place] [id number] December, [facility] [address] [id number] [address] [place] [address], [place] [id number] December, [facility] [address] [id number] [address] [place] [address], [place] [id number] December, [facility] [address] [id number] [address] [place] [address], [place] [id number] December, [facility] [address] [id number] [address] [place] [address], [place] [id number] December, [facility] [address] [id number] [address] [place] [address], [place] [id number] December, [facility] [address] [id number] [address] [place] [address], [place] [id number] 13 Nov, 2011 [facility] [address] [id number] [address] [place] [address], [place] [id number] 13 Nov, 2011 [facility] [address] [id number] [address] [place] [address], [place] [id number] Nov, [facility] [address] [id number] [address] [place] [address], [place] [id number] Nov, [facility] [address] [id number] [address] [place] [address], [place] [id number] Nov, [facility] [address] [id number] [address] [place] [address], [place] [id number] Oct, [facility] [address] [id number] [address] [place] [address], [place] [id number] 17 Sep, 2011 [facility] [address] [id number] [address] [place] [address], [place] [id number] Aug, [facility] [address] [id number] [address] [place] [address], [place] [id number] Aug, [facility] [address] [id number] [address] [place] [address], [place] [id number] Aug, [facility] [address] [id number] [address] [place] [address], [place] [id number] Aug, [facility] [address] [id number] [address] [place] [address], [place] [id number] Aug, [facility] [address] [id number] [address] [place] [address], [place] [id number] Jul, [facility] [address] [id number] [address] [place] [address], [place] [id number] Jul, [facility] [address] [id number] [address] [place] [address], [place] [id number] Jun, [facility] [address] [id number] [address] [place] [address], [place] [id number] Jun, [facility] [address] [id number] [address] [place] [address], [place] [id number] Jun, [facility] [address] [id number] [address] [place] [address], [place] [id number] May, [facility] [address] [id number] [address] [place] [address], [place] [id number] May, [facility] [address] [id number] [address] [place] [address], [place] [id number] 16 Oct, 2010 [facility] [address] [id number] [address] [place] [address], [place] [id number] Oct, [facility] [address] [id number] [address] [place] [address], [place] [id number] 29 Jul, 2010 [facility] [address] [id number] [address] [place] [address], [place] [id number] 08 Jul, 2010 [facility] [address] [id number] [address] [place] [address], [place] [id number] Jul, [facility] [address] [id number] [address] [place] [address], [place] [id number] Jul, [facility] [address] [id number] [address] [place] [address], [place] [id number] Jul, [facility] [address] [id number] [address] [place] [address], [place] [id number] Jun, [facility] [address] [id number] [address] [place] [address], [place] [id number] Jun, [facility] [address] [id number] [address] [place] [address], [place] [id number] Jun, [facility] [address] [id number] [address] [place] [address], [place] [id number] May, [facility] [address] [facility] [id number] [address] [place] [address] 16 Mar, 2010 IMMUNIZATIONS No Known Immunizations [...]
--- OUTSIDE RECORDS SUMMARY | 2019-11-28 22:49 | XMS REPORT ---
Author Author Caren LYLE Organization [facility] Address [address] [place] [address] Care Team Providers Care Director Of Flight Operations Name Role Phone LAURIE LYLE Unavailable PROBLEMS Type Condition ICD9-CM Code [id number] Code Onset Dates Condition S tatus SNOMED Code Problem COPD (chronic obstructive pulmonary disease) J44.9 Active 16998696 Problem Diabetes E11.9 Active 57573770 Problem Diabetic neuropathy E11.40 Active 787354350 Problem Arthritis M19.90 Active 4204412 ALLERGIES No Information ENCOUNTERS Encounter Location Date Diagnosis [facility] [address] [facility] [id number] [address] [place] [address] December, [facility] [address] [id number] [address] [place] [address] Aug, Arthritis M19.90 [facility] [address] [facility] [id number] [address] [place] [phone] Jul, [facility] [address] [facility] [id number] [address] [place] [address] Jul, [facility] [address] [facility] [id number] [address] [place] [address] Jul, [facility] [address] [id number] [address] [place] [address] Jul, [facility] [address] [facility] [id number] [address] [place] [address] Jul, Diabetes E11.9 ; Diabetic ne uropathy E11.40 ; Arthritis M19.90 and COPD (chronic obstructive pulmonary disease) J44.9 [facility] [address] [facility] [id number] [address] [place] [address] Jul, [facility] [address] [id number] [address] [place] [address], [place] [address] 23 Jun, 2015 [facility] [address] [id number] [address] [place] [address], [place] [address] 23 Jun, 2015 [facility] [address] [id number] [address] [place] [address], [place] [address] 17 Jun, 2014 [facility] [address] [id number] [address] [place] [address], [place] [address] 10 Jun, 2014 [facility] [address] [id number] [address] [place] [address], [place] [address] 15 May, 2015 [facility] [address] [id number] [address] [place] [address], [place] [address] 13 May, 2015 [facility] [address] [id number] [address] [place] [address], [place] [address] 07 May, 2015 [facility] [address] [id number] [address] [place] [address], [place] [address] 22 Sep, 2014 [facility] [address] [id number] [address] [place] [address], [place] [address] 21 Sep, 2014 [facility] [address] [id number] [address] [place] [address], [place] [address] 21 Sep, 2014 [facility] [address] [id number] [address] [place] [address], [place] [address] 15 Sep, 2014 [facility] [address] [id number] [address] [place] [address], [place] [address] 11 Sep, 2014 [facility] [address] [id number] [address] [place] [address], [place] [address] 09 Sep, 2014 [facility] [address] [id number] [address] [place] [address], [place] [address] 08 Sep, 2014 [facility] [address] [id number] [address] [place] [address], [place] [address] 03 Sep, 2014 [facility] [address] [id number] [address] [place] [address] [address] Apr, [facility] [address] [facility] [id number] [address] [place] [address] Mar, [facility] [address] [facility] [id number] [address] [place] [address] Mar, [facility] [address] [facility] [id number] [address] [place] [address] Mar, [facility] [address] [facility] [id number] [address] [place] [address] Mar, [facility] [address] [facility] [id number] [address] [place] [address] Mar, [facility] [address] [facility] [id number] [address] [place] [address] Mar, Diabetes mellitus 250.00 ; C OPD (chronic obstructive pulmonary disease) 496 ; Anxiety 300.[address] [facility] [address] [facility] [id number] [address] [place] [address] Feb, [facility] [address] [facility] [id number] [address] [place] [address] Feb, [facility] [address] [facility] [id number] [address] [place] [address] Feb, [facility] [address] [facility] [id number] [address] [place] [address] Feb, [facility] [address] [facility] [id number] [address] [place] [address] Jan, Seborrheic keratosis 702.[address] [facility] [address] [facility] [id number] [address] [place] [address] Jan, [facility] [address] [facility] [id number] [address] [place] [address] Jan, Routine gynecological examin ation V72.31 ; Breast cancer screening V76.10 ; Hot flashes 627.2 ; Atypical nevi 216.9 and Constipation 564.00 [facility] [address] [id number] [address] [place] [address], [place] [address] Jan, [facility] [address] [id number] [address] [place] [address], [place] [address] December, [facility] [address] [id number] [address] [place] [address], [place] [address] December, [facility] [address] [id number] [address] [place] [address], [place] [address] Nov, [facility] [address] [id number] [address] [place] [address], [place] [address] Nov, [facility] [address] [id number] [address] [place] [address], [place] [address] Oct, [facility] [address] [id number] [address] [place] [address], [place] [address] 23 Oct, 2014 [facility] [address] [id number] [address] [place] [address], [place] [address] 18 Oct, 2014 [facility] [address] [id number] [address] [place] [address], [place] [address] 18 Oct, 2014 [facility] [address] [id number] [address] [place] [address], [place] [address] 17 Oct, 2014 [facility] [address] [id number] [address] [place] [address], [place] [address] 17 Oct, 2014 [facility] [address] [id number] [address] [place] [address] 16 Oct, 2014 [facility] [address] [id number] [address] [place] [address], [place] [address] 16 Oct, 2014 [facility] [address] [id number] [address] [place] [address], [place] [address] 11 Oct, 2014 [facility] [address] [id number] [address] [place] [address], [place] [address] 11 Oct, 2014 [facility] [address] [id number] [address] [place] [address], [place] [address] Sep, 2014 [facility] [address] [id number] [address] [place] [address], [place] [address] Sep, 2014 [facility] [address] [id number] [address] [place] [address], [place] [address] 19 Sep, 2014 [facility] [address] [id number] [address] [place] [address], [place] [address] 18 Sep, 2014 [facility] [address] [id number] [address] [place] [address], [place] [address] Sep, 2014 [facility] [address] [id number] [address] [place] [address], [place] [address] Sep, 2014 [facility] [address] [id number] [address] [place] [address], [place] [address] Sep, 2014 [facility] [address] [id number] [address] [place] [address], [place] [address] Aug, [facility] [address] [id number] [address] [place] [address], [place] [address] Aug, [facility] [address] [id number] [address] [place] [address], [place] [address] Aug, [facility] [address] [id number] [address] [place] [address], [place] [address] Aug, [facility] [address] [id number] [address] [place] [address], [place] [address] Aug, [facility] [address] [id number] [address] [place] [address], [place] [address] Aug, [facility] [address] [id number] [address] [place] [address], [place] [address] Jul, [facility] [address] [id number] [address] [place] [address], [place] [address] Jul, [facility] [address] [id number] [address] [place] [address], [place] [address] Jul, [facility] [address] [id number] [address] [place] [address], [place] [address] Jul, [facility] [address] [id number] [address] [place] [address], [place] [address] Jul, [facility] [address] [id number] [address] [place] [address], [place] [address] Jun, [facility] [address] [id number] [address] [place] [address], [place] [address] Jun, [facility] [address] [id number] [address] [place] [address], [place] [address] Jun, [facility] [address] [id number] [address] [place] [address], [place] [address] Jun, [facility] [address] [id number] [address] [place] [address], [place] [address] Jun, [facility] [address] [id number] [address] [place] [address], [place] [address] Jun, [facility] [address] [id number] [address] [place] [address], [place] [address] May, [facility] [address] [id number] [address] [place] [address], [place] [address] May, [facility] [address] [id number] [address] [place] [address], [place] [address] May, [facility] [address] [id number] [address] [place] [address] May, [facility] [address] [id number] [address] [place] [address], [place] [address] May, [facility] [address] [id number] [address] [place] [address], [place] [address] May, [facility] [address] [id number] [address] [place] [address], [place] [address] May, [facility] [address] [id number] [address] [place] [address], [place] [address] May, [facility] [address] [id number] [address] [place] [address], [place] [address] May, [facility] [address] [id number] [address] [place] [address], [place] [address] Apr, [facility] [address] [id number] [address] [place] [address], [place] [address] Apr, [facility] [address] [id number] [address] [place] [address], [place] [address] Apr, [facility] [address] [id number] [address] [place] [address], [place] [address] Apr, [facility] [address] [id number] [address] [place] [address], [place] [address] Mar, [facility] [address] [id number] [address] [place] [address], [place] [address] Mar, [facility] [address] [id number] [address] [place] [address], [place] [address] Mar, [facility] [address] [id number] [address] [place] [address], [place] [address] Mar, [facility] [address] [id number] [address] [place] [address], [place] [address] Mar, [facility] [address] [id number] [address] [place] [address], [place] [address] Mar, [facility] [address] [id number] [address] [place] [address], [place] [address] Feb, [facility] [address] [id number] [address] [place] [address], [place] [address] Feb, [facility] [address] [id number] [address] [place] [address], [place] [address] Feb, [facility] [address] [id number] [address] [place] [address], [place] [address] Feb, [facility] [address] [id number] [facility] [place] [address] Feb, 2013 [facility] [address] [id number] [facility] [place] [address] Feb, [facility] [address] [id number] [address] [place] [address], [place] [address] Feb, 2013 [facility] [address] [id number] [address] [place] [address], [place] [address] Feb, 2013 [facility] [address] [id number] [address] [place] [address], [place] [address] Feb, 2013 [facility] [address] [id number] [address] [place] [address], [place] [address] Feb, [facility] [address] [id number] [address] [place] [address], [place] [address] Feb, [facility] [address] [id number] [address] [place] [address], [place] [address] Feb, [facility] [address] [id number] [address] [place] [address], [place] [address] Jan, [facility] [address] [id number] [address] [place] [address], [place] [address] Jan, [facility] [address] [id number] [address] [place] [address], [place] [address] Jan, [facility] [address] [id number] [address] [place] [address], [place] [address] Jan, [facility] [address] [id number] [address] [place] [address], [place] [address] Jan, [facility] [address] [id number] [address] [place] [address], [place] [address] Jan, [facility] [address] [id number] [address] [place] [address], [place] [address] Jan, [facility] [address] [id number] [address] [place] [address], [place] [address] Jan, [facility] [address] [id number] [address] [place] [address], [place] [address] Jan, [facility] [address] [id number] [address] [place] [address], [place] [address] Jan, [facility] [address] [id number] [address] [place] [address], [place] [address] Jan, [facility] [address] [id number] [address] [place] [address], [place] [address] Jan, [facility] [address] [id number] [address] [place] [address], [place] [address] Jan, [facility] [address] [id number] [address] [place] [address], [place] [address] Jan, [facility] [address] [id number] [address] [place] [address], [place] [address] Jan, [facility] [address] [id number] [address] [place] [address], [place] [address] Jan, [facility] [address] [id number] [address] [place] [address], [place] [address] Jan, [facility] [address] [id number] [address] [place] [address], [place] [address] December, [facility] [address] [id number] [address] [place] [address], [place] [address] December, [facility] [address] [id number] [address] [place] [address], [place] [address] December, [facility] [address] [id number] [address] [place] [address], [place] [address] December, [facility] [address] [id number] [address] [place] [address], [place] [address] December, [facility] [address] [id number] [address] [place] [address], [place] [address] December, [facility] [address] [id number] [address] [place] [address], [place] [address] Nov, [facility] [address] [id number] [address] [place] [address], [place] [address] Nov, [facility] [address] [id number] [address] [place] [address], [place] [address] Nov, [facility] [address] [id number] [address] [place] [address], [place] [address] Nov, [facility] [address] [id number] [address] [place] [address], [place] [address] Nov, [facility] [address] [id number] [address] [place] [address], [place] [address] Nov, [facility] [address] [id number] [address] [place] [address], [place] [address] Nov, [facility] [address] [id number] [address] [place] [address], [place] [address] Nov, [facility] [address] [id number] [address] [place] [address], [place] [address] Nov, [facility] [address] [id number] [address] [place] [address], [place] [address] Nov, [facility] [address] [id number] [address] [place] [address], [place] [address] Nov, [facility] [address] [id number] [address] [place] [address], [place] [address] Nov, [facility] [address] [id number] [address] [place] [address], [place] [address] Nov, [facility] [address] [id number] [address] [place] [address], [place] [address] Nov, [facility] [address] [id number] [address] [place] [address], [place] [address] Nov, [facility] [address] [id number] [address] [place] [address], [place] [address] Nov, [facility] [address] [id number] [address] [place] [address], [place] [address] Oct, [facility] [address] [id number] [address] [place] [address], [place] [address] Oct, [facility] [address] [id number] [address] [place] [address], [place] [address] Oct, [facility] [address] [id number] [address] [place] [address], [place] [address] Oct, [facility] [address] [id number] [address] [place] [address], [place] [address] Oct, [facility] [address] [id number] [address] [place] [address], [place] [address] Oct, [facility] [address] [id number] [address] [place] [address], [place] [address] Oct, [facility] [address] [id number] [address] [place] [address], [place] [address] Oct, [facility] [address] [id number] [address] [place] [address], [place] [address] Sep, [facility] [address] [id number] [address] [place] [address], [place] [address] Sep, [facility] [address] [id number] [address] [place] [address], [place] [address] Sep, [facility] [address] [id number] [address] [place] [address], [place] [address] Sep, [facility] [address] [id number] [address] [place] [address], [place] [address] Sep, [facility] [address] [id number] [address] [place] [address], [place] [address] Sep, [facility] [address] [id number] [address] [place] [address], [place] [address] Aug, [facility] [address] [id number] [address] [place] [address], [place] [address] Aug, [facility] [address] [id number] [address] [place] [address], [place] [address] Aug, [facility] [address] [id number] [address] [place] [address], [place] [address] Aug, [facility] [address] [id number] [address] [place] [address], [place] [address] Aug, [facility] [address] [id number] [address] [place] [address], [place] [address] Aug, [facility] [address] [id number] [address] [place] [address], [place] [address] Aug, [facility] [address] [id number] [address] [place] [address], [place] [address] Aug, [facility] [address] [id number] [address] [place] [address], [place] [address] Jul, [facility] [address] [id number] [address] [place] [address], [place] [address] Jul, [facility] [address] [id number] [address] [place] [address], [place] [address] Jul, [facility] [address] [id number] [address] [place] [address], [place] [address] Jul, [facility] [address] [id number] [address] [place] [address], [place] [address] Jul, [facility] [address] [id number] [address] [place] [address], [place] [address] Jul, [facility] [address] [id number] [address] [place] [address], [place] [address] Jul, [facility] [address] [id number] [address] [place] [address], [place] [address] Jul, [facility] [address] [id number] [address] [place] [address], [place] [address] Jul, [facility] [address] [id number] [address] [place] [address], [place] [address] 14 Jun, 2013 [facility] [address] [id number] [address] [place] [address], [place] [address] 14 Jun, 2013 [facility] [address] [id number] [address] [place] [address], [place] [address] Jun, [facility] [address] [id number] [address] [place] [address], [place] [address] Jun, [facility] [address] [id number] [address] [place] [address], [place] [address] Jun, [facility] [address] [id number] [address] [place] [address], [place] [address] Jun, [facility] [address] [id number] [address] [place] [address], [place] [address] 31 May, 2013 [facility] [address] [id number] [address] [place] [address], [place] [address] 31 May, 2013 [facility] [address] [id number] [address] [place] [address], [place] [address] 17 May, 2013 [facility] [address] [id number] [address] [place] [address], [place] [address] 17 May, 2013 [facility] [address] [id number] [address] [place] [address], [place] [address] 14 May, 2013 [facility] [address] [id number] [address] [place] [address], [place] [address] 14 May, 2013 [facility] [address] [id number] [address] [place] [address], [place] [address] 10 May, 2013 [facility] [address] [id number] [address] [place] [address], [place] [address] 10 May, 2013 [facility] [address] [id number] [address] [place] [address] 07 May, 2013 [facility] [address] [id number] [address] [place] [address] 20 Sep, 2012 [facility] [address] [id number] [address] [place] [address], [place] [address] 19 Sep, 2012 [facility] [address] [id number] [address] [place] [address], [place] [address] 12 Apr, 2012 [facility] [address] [id number] [address] [place] [address], [place] [address] 24 Sep, 2011 [facility] [address] [id number] [address] [place] [address], [place] [address] 21 Sep, 2011 [facility] [address] [id number] [address] [place] [address], [place] [address] 21 Apr, 2011 [facility] [address] [id number] [address] [place] [address], [place] [address] 14 Apr, 2011 [facility] [address] [id number] [address] [place] [address], [place] [address] 10 Apr, 2011 [facility] [address] [id number] [address] [place] [address], [place] [address] 06 Apr, 2011 [facility] [address] [id number] [address] [place] [address], [place] [address] 04 Apr, 2011 [facility] [address] [id number] [address] [place] [address], [place] [address] 31 Mar, 2012 [facility] [address] [id number] [address] [place] [address], [place] [address] 28 Mar, 2012 [facility] [address] [id number] [address] [place] [address], [place] [address] 27 Mar, 2012 [facility] [address] [id number] [address] [place] [address], [place] [address] 10 Mar, 2012 [facility] [address] [id number] [address] [place] [address], [place] [address] 08 Mar, 2012 [facility] [address] [id number] [address] [place] [address], [place] [address] 03 Mar, 2012 [facility] [address] [id number] [address] [place] [address], [place] [address] Feb, [facility] [address] [id number] [address] [place] [address], [place] [address] Feb, [facility] [address] [id number] [address] [place] [address], [place] [address] Feb, [facility] [address] [id number] [address] [place] [address], [place] [address] Jan, [facility] [address] [id number] [address] [place] [address], [place] [address] Jan, [facility] [address] [id number] [address] [place] [address], [place] [address] Jan, [facility] [address] [id number] [address] [place] [address], [place] [address] Jan, [facility] [address] [id number] [address] [place] [address], [place] [address] Jan, [facility] [address] [id number] [address] [place] [address], [place] [address] Jan, [facility] [address] [id number] [address] [place] [address], [place] [address] Jan, [facility] [address] [id number] [address] [place] [address], [place] [address] Jan, [facility] [address] [id number] [address] [place] [address], [place] [address] December, [facility] [address] [id number] [address] [place] [address], [place] [address] December, [facility] [address] [id number] [address] [place] [address], [place] [address] December, [facility] [address] [id number] [address] [place] [address], [place] [address] December, [facility] [address] [id number] [address] [place] [address], [place] [address] December, [facility] [address] [id number] [address] [place] [address], [place] [address] December, [facility] [address] [id number] [address] [place] [address], [place] [address] 13 Nov, 2011 [facility] [address] [id number] [address] [place] [address], [place] [address] 13 Nov, 2011 [facility] [address] [id number] [address] [place] [address], [place] [address] Nov, [facility] [address] [id number] [address] [place] [address], [place] [address] Nov, [facility] [address] [id number] [address] [place] [address], [place] [address] Nov, [facility] [address] [id number] [address] [place] [address], [place] [address] Oct, [facility] [address] [id number] [address] [place] [address], [place] [address] 17 Sep, 2011 [facility] [address] [id number] [address] [place] [address], [place] [address] Aug, [facility] [address] [id number] [address] [place] [address], [place] [address] Aug, [facility] [address] [id number] [address] [place] [address], [place] [address] Aug, [facility] [address] [id number] [address] [place] [address], [place] [address] Aug, [facility] [address] [id number] [address] [place] [address], [place] [address] Aug, [facility] [address] [id number] [address] [place] [address], [place] [address] Jul, [facility] [address] [id number] [address] [place] [address], [place] [address] Jul, [facility] [address] [id number] [address] [place] [address], [place] [address] Jun, [facility] [address] [id number] [address] [place] [address], [place] [address] Jun, [facility] [address] [id number] [address] [place] [address], [place] [address] Jun, [facility] [address] [id number] [address] [place] [address], [place] [address] May, [facility] [address] [id number] [address] [place] [address], [place] [address] May, [facility] [address] [id number] [address] [place] [address], [place] [address] 16 Oct, 2010 [facility] [address] [id number] [address] [place] [address], [place] [address] Oct, [facility] [address] [id number] [address] [place] [address], [place] [address] 29 Jul, 2010 [facility] [address] [id number] [address] [place] [address], [place] [address] 08 Jul, 2010 [facility] [address] [id number] [address] [place] [address], [place] [address] Jul, [facility] [address] [id number] [address] [place] [address], [place] [address] Jul, [facility] [address] [id number] [address] [place] [address], [place] [address] Jul, [facility] [address] [id number] [address] [place] [address], [place] [address] Jun, [facility] [address] [id number] [address] [place] [address], [place] [address] Jun, [facility] [address] [id number] [address] [place] [address], [place] [address] Jun, [facility] [address] [id number] [address] [place] [address], [place] [address] May, [facility] [address] [facility] [id number] [address] [place] [address] 16 Mar, 2010 IMMUNIZATIONS No Known Immunizations SOCIAL HISTORY Never Assessed REASON FOR VISIT PLAN OF CARE VITAL SIGNS Height 60 in 2014-01-25 Weight 232 lbs 2014-01-25 Temperature 97.6 degrees Fahrenheit 2014-01-25 Heart Rate 70 bpm 2014-01-25 Respiratory Rate 20 2014-01-25 Blood pressure systolic 128 mmHg 2014-01-25 Blood pressure diastolic 74 mmHg 2014-01-25 MEDICATIONS Unknown Medications RESULTS No Results PROCEDURES Procedure Date Ordered Result Body Site MEASURE BLOOD OXYGEN LEVEL January 25, 2014 GLYCATED HEMOGLOBIN TEST January 25, 2014 INSTRUCTIONS MEDICATIONS ADMINISTERED No Known Medications MEDICAL (GENERAL) HISTORY Type Description Date Medical History Hypertension Medical History Chronic obstructive pulmonary disease Medical History Type 2 diabetes mellitus Medical History Psychiatric disorders depression Surgical History Hysterectomy total abdominal 1996 Surgical History Orthopedic Surgery Surgical History Scleral buckle Hospitalization History No Hospitalization history informati on
--- OUTSIDE RECORDS SUMMARY | 2019-11-28 22:49 | XMS REPORT ---
Author Author Caren LYLE Organization [facility] Address [address] [place] [address] Care Team Providers Care Internet Marketing Intern Name Role Phone LAURIE LYLE Unavailable PROBLEMS Type Condition ICD9-CM Code ETF90-TC Code Onset Dates Condition S tatus SNOMED Code Problem COPD (chronic obstructive pulmonary disease) J44.9 Active 51618659 Problem Diabetes E11.9 Active 90627068 Problem Diabetic neuropathy E11.40 Active 805815860 Problem Arthritis M19.90 Active 5338905 ALLERGIES No Information ENCOUNTERS Encounter Location Date Diagnosis [facility] [address] [facility] [id number] [address] [place] [address] December, [facility] [address] [id number] [address] [place] [address] Aug, Arthritis M19.90 [facility] [address] [facility] [id number] [address] [place] [address] Jul, [facility] [address] [facility] [id number] [address] [place] [address] Jul, [facility] [address] [facility] [id number] [address] [place] [address] Jul, [facility] [address] [id number] [address] [place] [address] Jul, [facility] [address] [facility] [id number] [address] [place] [address] Jul, Diabetes E11.9 ; Diabetic ne uropathy E11.40 ; Arthritis M19.90 and COPD (chronic obstructive pulmonary disease) J44.9 [facility] [address] [facility] [id number] [address] [place] [address] Jul, [facility] [address] [id number] [address] [place] [address], [place] [address] 23 Jun, 2015 [facility] [address] [id number] [address] [place] [address], [place] [address] 23 Jun, 2015 [facility] [address] [id number] [address] [place] [address], [place] [address] 17 Jun, 2014 [facility] [address] [id number] [address] [place] [address], [place] [address] 10 Jun, 2014 [facility] [address] [id number] [address] [place] [address], [place] [address] 15 May, 2015 [facility] [address] [id number] [address] [place] [address], [place] [address] 13 May, 2015 [facility] [address] [id number] [address] [place] [address], [place] [address] 07 May, 2015 [facility] [address] [id number] [address] [place] [address], [place] [address] 22 Sep, 2014 [facility] [address] [id number] [address] [place] [address], [place] [address] 21 Sep, 2014 [facility] [address] [id number] [address] [place] [address], [place] [address] 21 Sep, 2014 [facility] [address] [id number] [address] [place] [address], [place] [address] 15 Sep, 2014 [facility] [address] [id number] [address] [place] [address], [place] [address] 11 Sep, 2014 [facility] [address] [id number] [address] [place] [address], [place] [address] 09 Sep, 2014 [facility] [address] [id number] [address] [place] [address], [place] [address] 08 Sep, 2014 [facility] [address] [id number] [address] [place] [address], [place] [address] 03 Sep, 2014 [facility] [address] [id number] [address] [place] [address] [address] Apr, [facility] [address] [facility] [id number] [address] [place] [address] Mar, [facility] [address] [facility] [id number] [address] [place] [address] Mar, [facility] [address] [facility] [id number] [address] [place] [address] Mar, [facility] [address] [facility] [id number] [address] [place] [address] Mar, [facility] [address] [facility] [id number] [address] [place] [address] Mar, [facility] [address] [facility] [id number] [address] [place] [address] Mar, Diabetes mellitus 250.00 ; C OPD (chronic obstructive pulmonary disease) 496 ; Anxiety 300.00 and Arthritis 716.90 [facility] [address] [facility] [id number] [address] [place] [address] Feb, [facility] [address] [facility] [id number] [address] [place] [address] Feb, [facility] [address] [facility] [id number] [address] [place] [address] Feb, [facility] [address] [facility] [id number] [address] [place] [address] Feb, [facility] [address] [facility] [id number] [address] [place] [address] Jan, Seborrheic keratosis 702.19 and Nevus 216.9 [facility] [address] [facility] [id number] [address] [place] [address] Jan, [facility] [address] [facility] [id number] [address] [place] [address] Jan, Routine gynecological examin ation V72.31 ; Breast cancer screening V76.10 ; Hot flashes 627.2 ; Atypical nevi 216.9 and Constipation 564.00 [facility] [address] [id number] [address] [place] [address], [place] [address] Jan, [facility] [address] [id number] [address] [place] [address], [place] [address] December, [facility] [address] [id number] [address] [place] [address], [place] [address] December, [facility] [address] [id number] [address] [place] [address], [place] [address] Nov, [facility] [address] [id number] [address] [place] [address], [place] [address] Nov, [facility] [address] [id number] [address] [place] [address], [place] [address] Oct, [facility] [address] [id number] [address] [place] [address], [place] [address] 23 Oct, 2014 [facility] [address] [id number] [address] [place] [address], [place] [address] 18 Oct, 2014 [facility] [address] [id number] [address] [place] [address], [place] [address] 18 Oct, 2014 [facility] [address] [id number] [address] [place] [address], [place] [address] 17 Oct, 2014 [facility] [address] [id number] [address] [place] [address], [place] [address] 17 Oct, 2014 [facility] [address] [id number] [address] [place] [address] 16 Oct, 2014 [facility] [address] [id number] [address] [place] [address], [place] [address] 16 Oct, 2014 [facility] [address] [id number] [address] [place] [address], [place] [address] 11 Oct, 2014 [facility] [address] [id number] [address] [place] [address], [place] [address] 11 Oct, 2014 [facility] [address] [id number] [address] [place] [address], [place] [address] Sep, 2014 [facility] [address] [id number] [address] [place] [address], [place] [address] Sep, 2014 [facility] [address] [id number] [address] [place] [address], [place] [address] 19 Sep, 2014 [facility] [address] [id number] [address] [place] [address], [place] [address] 18 Sep, 2014 [facility] [address] [id number] [address] [place] [address], [place] [address] Sep, 2014 [facility] [address] [id number] [address] [place] [address], [place] [address] Sep, 2014 [facility] [address] [id number] [address] [place] [address], [place] [address] Sep, 2014 [facility] [address] [id number] [address] [place] [address], [place] [address] Aug, [facility] [address] [id number] [address] [place] [address], [place] [address] Aug, [facility] [address] [id number] [address] [place] [address], [place] [address] Aug, [facility] [address] [id number] [address] [place] [address], [place] [address] Aug, [facility] [address] [id number] [address] [place] [address], [place] [address] Aug, [facility] [address] [id number] [address] [place] [address], [place] [address] Aug, [facility] [address] [id number] [address] [place] [address], [place] [address] Jul, [facility] [address] [id number] [address] [place] [address], [place] [address] Jul, [facility] [address] [id number] [address] [place] [address], [place] [address] Jul, [facility] [address] [id number] [address] [place] [address], [place] [address] Jul, [facility] [address] [id number] [address] [place] [address], [place] [address] Jul, [facility] [address] [id number] [address] [place] [address], [place] [address] Jun, [facility] [address] [id number] [address] [place] [address], [place] [address] Jun, [facility] [address] [id number] [address] [place] [address], [place] [address] Jun, [facility] [address] [id number] [address] [place] [address], [place] [address] Jun, [facility] [address] [id number] [address] [place] [address], [place] [address] Jun, [facility] [address] [id number] [address] [place] [address], [place] [address] Jun, [facility] [address] [id number] [address] [place] [address], [place] [address] May, [facility] [address] [id number] [address] [place] [address], [place] [address] May, [facility] [address] [id number] [address] [place] [address], [place] [address] May, [facility] [address] [id number] [address] [place] [address] May, [facility] [address] [id number] [address] [place] [address], [place] [address] May, [facility] [address] [id number] [address] [place] [address], [place] [address] May, [facility] [address] [id number] [address] [place] [address], [place] [address] May, [facility] [address] [id number] [address] [place] [address], [place] [address] May, [facility] [address] [id number] [address] [place] [address], [place] [address] May, [facility] [address] [id number] [address] [place] [address], [place] [address] Apr, [facility] [address] [id number] [address] [place] [address], [place] [address] Apr, [facility] [address] [id number] [address] [place] [address], [place] [address] Apr, [facility] [address] [id number] [address] [place] [address], [place] [address] Apr, [facility] [address] [id number] [address] [place] [address], [place] [address] Mar, [facility] [address] [id number] [address] [place] [address], [place] [address] Mar, [facility] [address] [id number] [address] [place] [address], [place] [address] Mar, [facility] [address] [id number] [address] [place] [address], [place] [address] Mar, [facility] [address] [id number] [address] [place] [address], [place] [address] Mar, [facility] [address] [id number] [address] [place] [address], [place] [address] Mar, [facility] [address] [id number] [address] [place] [address], [place] [address] Feb, [facility] [address] [id number] [address] [place] [address], [place] [address] Feb, [facility] [address] [id number] [address] [place] [address], [place] [address] Feb, [facility] [address] [id number] [address] [place] [address], [place] [address] Feb, [facility] [address] [id number] [facility] [place] [address] Feb, 2013 [facility] [address] [id number] [facility] [place] [address] Feb, [facility] [address] [id number] [address] [place] [address], [place] [address] Feb, 2013 [facility] [address] [id number] [address] [place] [address], [place] [address] Feb, 2013 [facility] [address] [id number] [address] [place] [address], [place] [address] Feb, 2013 [facility] [address] [id number] [address] [place] [address], [place] [address] Feb, [facility] [address] [id number] [address] [place] [address], [place] [address] Feb, [facility] [address] [id number] [address] [place] [address], [place] [address] Feb, [facility] [address] [id number] [address] [place] [address], [place] [address] Jan, [facility] [address] [id number] [address] [place] [address], [place] [address] Jan, [facility] [address] [id number] [address] [place] [address], [place] [address] Jan, [facility] [address] [id number] [address] [place] [address], [place] [address] Jan, [facility] [address] [id number] [address] [place] [address], [place] [address] Jan, [facility] [address] [id number] [address] [place] [address], [place] [address] Jan, [facility] [address] [id number] [address] [place] [address], [place] [address] Jan, [facility] [address] [id number] [address] [place] [address], [place] [address] Jan, [facility] [address] [id number] [address] [place] [address], [place] [address] Jan, [facility] [address] [id number] [address] [place] [address], [place] [address] Jan, [facility] [address] [id number] [address] [place] [address], [place] [address] Jan, [facility] [address] [id number] [address] [place] [address], [place] [address] Jan, [facility] [address] [id number] [address] [place] [address], [place] [address] Jan, [facility] [address] [id number] [address] [place] [address], [place] [address] Jan, [facility] [address] [id number] [address] [place] [address], [place] [address] Jan, [facility] [address] [id number] [address] [place] [address], [place] [address] Jan, [facility] [address] [id number] [address] [place] [address], [place] [address] Jan, [facility] [address] [id number] [address] [place] [address], [place] [address] December, [facility] [address] [id number] [address] [place] [address], [place] [address] December, [facility] [address] [id number] [address] [place] [address], [place] [address] December, [facility] [address] [id number] [address] [place] [address], [place] [address] December, [facility] [address] [id number] [address] [place] [address], [place] [address] December, [facility] [address] [id number] [address] [place] [address], [place] [address] December, [facility] [address] [id number] [address] [place] [address], [place] [address] Nov, [facility] [address] [id number] [address] [place] [address], [place] [address] Nov, [facility] [address] [id number] [address] [place] [address], [place] [address] Nov, [facility] [address] [id number] [address] [place] [address], [place] [address] Nov, [facility] [address] [id number] [address] [place] [address], [place] [address] Nov, [facility] [address] [id number] [address] [place] [address], [place] [address] Nov, [facility] [address] [id number] [address] [place] [address], [place] [address] Nov, [facility] [address] [id number] [address] [place] [address], [place] [address] Nov, [facility] [address] [id number] [address] [place] [address], [place] [address] Nov, [facility] [address] [id number] [address] [place] [address], [place] [address] Nov, [facility] [address] [id number] [address] [place] [address], [place] [address] Nov, [facility] [address] [id number] [address] [place] [address], [place] [address] Nov, [facility] [address] [id number] [address] [place] [address], [place] [address] Nov, [facility] [address] [id number] [address] [place] [address], [place] [address] Nov, [facility] [address] [id number] [address] [place] [address], [place] [address] Nov, [facility] [address] [id number] [address] [place] [address], [place] [address] Nov, [facility] [address] [id number] [address] [place] [address], [place] [address] Oct, [facility] [address] [id number] [address] [place] [address], [place] [address] Oct, [facility] [address] [id number] [address] [place] [address], [place] [address] Oct, [facility] [address] [id number] [address] [place] [address], [place] [address] Oct, [facility] [address] [id number] [address] [place] [address], [place] [address] Oct, [facility] [address] [id number] [address] [place] [address], [place] [address] Oct, [facility] [address] [id number] [address] [place] [address], [place] [address] Oct, [facility] [address] [id number] [address] [place] [address], [place] [address] Oct, [facility] [address] [id number] [address] [place] [address], [place] [address] Sep, [facility] [address] [id number] [address] [place] [address], [place] [address] Sep, [facility] [address] [id number] [address] [place] [address], [place] [address] Sep, [facility] [address] [id number] [address] [place] [address], [place] [address] Sep, [facility] [address] [id number] [address] [place] [address], [place] [address] Sep, [facility] [address] [id number] [address] [place] [address], [place] [address] Sep, [facility] [address] [id number] [address] [place] [address], [place] [address] Aug, [facility] [address] [id number] [address] [place] [address], [place] [address] Aug, [facility] [address] [id number] [address] [place] [address], [place] [address] Aug, [facility] [address] [id number] [address] [place] [address], [place] [address] Aug, [facility] [address] [id number] [address] [place] [address], [place] [address] Aug, [facility] [address] [id number] [address] [place] [address], [place] [address] Aug, [facility] [address] [id number] [address] [place] [address], [place] [address] Aug, [facility] [address] [id number] [address] [place] [address], [place] [address] Aug, [facility] [address] [id number] [address] [place] [address], [place] [address] Jul, [facility] [address] [id number] [address] [place] [address], [place] [address] Jul, [facility] [address] [id number] [address] [place] [address], [place] [address] Jul, [facility] [address] [id number] [address] [place] [address], [place] [address] Jul, [facility] [address] [id number] [address] [place] [address], [place] [address] Jul, [facility] [address] [id number] [address] [place] [address], [place] [address] Jul, [facility] [address] [id number] [address] [place] [address], [place] [address] Jul, [facility] [address] [id number] [address] [place] [address], [place] [address] Jul, [facility] [address] [id number] [address] [place] [address], [place] [address] Jul, [facility] [address] [id number] [address] [place] [address], [place] [address] 14 Jun, 2013 [facility] [address] [id number] [address] [place] [address], [place] [address] 14 Jun, 2013 [facility] [address] [id number] [address] [place] [address], [place] [address] Jun, [facility] [address] [id number] [address] [place] [address], [place] [address] Jun, [facility] [address] [id number] [address] [place] [address], [place] [address] Jun, [facility] [address] [id number] [address] [place] [address], [place] [address] Jun, [facility] [address] [id number] [address] [place] [address], [place] [address] 31 May, 2013 [facility] [address] [id number] [address] [place] [address], [place] [address] 31 May, 2013 [facility] [address] [id number] [address] [place], [place] [address], [place] [address] 17 May, 2013 [facility] [address] [id number] [address] [place] [address], [place] [address] 17 May, 2013 [facility] [address] [id number] [address] [place] [address], [place] [address] 14 May, 2013 [facility] [address] [id number] [address] [place] [address], [place] [address] 14 May, 2013 [facility] [address] [id number] [address] [place] [address], [place] [address] 10 May, 2013 [facility] [address] [id number] [address] [place] [address], [place] [address] 10 May, 2013 [facility] [address] [id number] [address] [place] [address] 07 May, 2013 [facility] [address] [id number] [address] [place] [address] 20 Sep, 2012 [facility] [address] [id number] [address] [place] [address], [place] [address] 19 Sep, 2012 [facility] [address] [id number] [address] [place] [address], [place] [address] 12 Apr, 2012 [facility] [address] [id number] [address] [place] [address], [place] [address] 24 Sep, 2011 [facility] [address] [id number] [address] [place] [address], [place] [address] 21 Sep, 2011 [facility] [address] [id number] [address] [place] [address], [place] [address] 21 Apr, 2011 [facility] [address] [id number] [address] [place] [address], [place] [address] 14 Apr, 2011 [facility] [address] [id number] [address] [place] [address], [place] [address] 10 Apr, 2011 [facility] [address] [id number] [address] [place] [address], [place] [address] 06 Apr, 2011 [facility] [address] [id number] [address] [place] [address], [place] [address] 04 Apr, 2011 [facility] [address] [id number] [address] [place] [address], [place] [address] 31 Mar, 2012 [facility] [address] [id number] [address] [place] [address], [place] [address] 28 Mar, 2012 [facility] [address] [id number] [address] [place] [address], [place] [address] 27 Mar, 2012 [facility] [address] [id number] [address] [place] [address], [place] [address] 10 Mar, 2012 [facility] [address] [id number] [address] [place] [address], [place] [address] 08 Mar, 2012 [facility] [address] [id number] [address] [place] [address], [place] [address] 03 Mar, 2012 [facility] [address] [id number] [address] [place] [address], [place] [address] Feb, [facility] [address] [id number] [address] [place] [address], [place] [address] Feb, [facility] [address] [id number] [address] [place] [address], [place] [address] Feb, [facility] [address] [id number] [address] [place] [address], [place] [address] Jan, [facility] [address] [id number] [address] [place] [address], [place] [address] Jan, [facility] [address] [id number] [address] [place] [address], [place] [address] Jan, [facility] [address] [id number] [address] [place] [address], [place] [address] Jan, [facility] [address] [id number] [address] [place] [address], [place] [address] Jan, [facility] [address] [id number] [address] [place] [address], [place] [address] Jan, [facility] [address] [id number] [address] [place] [address], [place] [address] Jan, [facility] [address] [id number] [address] [place] [address], [place] [address] Jan, [facility] [address] [id number] [address] [place] [address], [place] [address] December, [facility] [address] [id number] [address] [place] [address], [place] [address] December, [facility] [address] [id number] [address] [place] [address], [place] [address] December, [facility] [address] [id number] [address] [place] [address], [place] [address] December, [facility] [address] [id number] [address] [place] [address], [place] [address] December, [facility] [address] [id number] [address] [place] [address], [place] [address] December, [facility] [address] [id number] [address] [place] [address], [place] [address] 13 Nov, 2011 [facility] [address] [id number] [address] [place] [address], [place] [address] 13 Nov, 2011 [facility] [address] [id number] [address] [place] [address], [place] [address] Nov, [facility] [address] [id number] [address] [place] [address], [place] [address] Nov, [facility] [address] [id number] [address] [place] [address], [place] [address] Nov, [facility] [address] [id number] [address] [place] [address], [place] [address] Oct, [facility] [address] [id number] [address] [place] [address], [place] [address] 17 Sep, 2011 [facility] [address] [id number] [address] [place] [address], [place] [address] Aug, [facility] [address] [id number] [address] [place] [address], [place] [address] Aug, [facility] [address] [id number] [address] [place] [address], [place] [address] Aug, [facility] [address] [id number] [address] [place] [address], [place] [address] Aug, [facility] [address] [id number] [address] [place] [address], [place] [address] Aug, [facility] [address] [id number] [address] [place] [address], [place] [address] Jul, [facility] [address] [id number] [address] [place] [address], [place] [address] Jul, [facility] [address] [id number] [address] [place] [address], [place] [address] Jun, [facility] [address] [id number] [address] [place] [address], [place] [address] Jun, [facility] [address] [id number] [address] [place] [address], [place] [address] Jun, [facility] [address] [id number] [address] [place] [address], [place] [address] May, [facility] [address] [id number] [address] [place] [address], [place] [address] May, [facility] [address] [id number] [address] [place] [address], [place] [address] 16 Oct, 2010 [facility] [address] [id number] [address] [place] [address], [place] [address] Oct, [facility] [address] [id number] [address] [place] [address], [place] [address] 29 Jul, 2010 [facility] [address] [id number] [address] [place] [address], [place] [address] 08 Jul, 2010 [facility] [address] [id number] [address] [place] [address], [place] [address] Jul, [facility] [address] [id number] [address] [place] [address], [place] [address] Jul, [facility] [address] [id number] [address] [place] [address], [place] [address] Jul, [facility] [address] [id number] [address] [place] [address], [place] [address] Jun, [facility] [address] [id number] [address] [place] [address], [place] [address] Jun, [facility] [address] [id number] [address] [place] [address], [place] [address] Jun, [facility] [address] [id number] [address] [place] [address], [place] [address] May, [facility] [address] [facility] [id number] [address] [place] [address] 16 Mar, 2010 IMMUNIZATIONS No Known Immunizations [...]
--- OUTSIDE RECORDS SUMMARY | 2019-11-28 22:49 | XMS REPORT ---
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 Name Role Phone LAURIE LYLE Unavailable PROBLEMS Type Condition ICD9-CM Code IJB85-PD Code Onset Dates Condition S tatus SNOMED Code Problem COPD (chronic obstructive pulmonary disease) J44.9 Active 80530611 Problem Diabetes E11.9 Active 43709405 Problem Diabetic neuropathy E11.40 Active 378957959 Problem Arthritis M19.90 Active 6918304 ALLERGIES No Information ENCOUNTERS Encounter Location Date Diagnosis [facility] [address] [facility] [id number] [address] [place] [address] December, [facility] [address] [id number] [address] [place] [address] Aug, Arthritis M19.90 [facility] [address] [facility] [id number] [address] [place] [address] Jul, [facility] [address] [facility] [id number] [address] [place] [address] Jul, [facility] [address] [facility] [id number] [address] [place] [address] Jul, [facility] [address] [id number] [address] [place] [address] Jul, [facility] [address] [facility] [id number] [address] [place] [address] Jul, Diabetes E11.9 ; Diabetic ne uropathy E11.40 ; Arthritis M19.90 and COPD (chronic obstructive pulmonary disease) J44.9 [facility] [address] [facility] [id number] [address] [place] [address] Jul, [facility] [address] [id number] [address] [place] [address], [place] [address] 23 Jun, 2015 [facility] [address] [id number] [address] [place] [address], [place] [address] 23 Jun, 2015 [facility] [address] [id number] [address] [place] [address], [place] [address] 17 Jun, 2014 [facility] [address] [id number] [address] [place] [address], [place] [address] 10 Jun, 2014 [facility] [address] [id number] [address] [place] [address], [place] [address] 15 May, 2015 [facility] [address] [id number] [address] [place] [address], [place] [address] 13 May, 2015 [facility] [address] [id number] [address] [place] [address], [place] [address] 07 May, 2015 [facility] [address] [id number] [address] [place] [address], [place] [address] 22 Sep, 2014 [facility] [address] [id number] [address] [place] [address], [place] [address] 21 Sep, 2014 [facility] [address] [id number] [address] [place] [address], [place] [address] 21 Sep, 2014 [facility] [address] [id number] [address] [place] [address], [place] [address] 15 Sep, 2014 [facility] [address] [id number] [address] [place] [address], [place] [address] 11 Sep, 2014 [facility] [address] [id number] [address] [place] [address], [place] [address] 09 Sep, 2014 [facility] [address] [id number] [address] [place] [address], [place] [address] 08 Sep, 2014 [facility] [address] [id number] [address] [place] [address], [place] [address] 03 Sep, 2014 [facility] [address] [id number] [address] [place] [address] [address] Apr, [facility] [address] [facility] [id number] [address] [place] [address] Mar, [facility] [address] [facility] [id number] [address] [place] [address] Mar, [facility] [address] [facility] [id number] [address] [place] [address] Mar, [facility] [address] [facility] [id number] [address] [place] [address] Mar, [facility] [address] [facility] [id number] [address] [place] [address] Mar, [facility] [address] [facility] [id number] [address] [place] [address] Mar, Diabetes mellitus 250.00 ; C OPD (chronic obstructive pulmonary disease) 496 ; Anxiety 300.00 and Arthritis 716.90 [facility] [address] [facility] [id number] [address] [place] [address] Feb, [facility] [address] [facility] [id number] [address] [place] [address] Feb, [facility] [address] [facility] [id number] [address] [place] [address] Feb, [facility] [address] [facility] [id number] [address] [place] [address] Feb, [facility] [address] [facility] [id number] [address] [place] [address] Jan, Seborrheic keratosis 702.19 and Nevus 216.9 [facility] [address] [facility] [id number] [address] [place] [address] Jan, [facility] [address] [facility] [id number] [address] [place] [address] Jan, Routine gynecological examin ation V72.31 ; Breast cancer screening V76.10 ; Hot flashes 627.2 ; Atypical nevi 216.9 and Constipation 564.00 [facility] [address] [id number] [address] [place] [address], [place] [address] Jan, [facility] [address] [id number] [address] [place] [address], [place] [address] December, [facility] [address] [id number] [address] [place] [address], [place] [address] December, [facility] [address] [id number] [address] [place] [address], [place] [address] Nov, [facility] [address] [id number] [address] [place] [address], [place] [address] Nov, [facility] [address] [id number] [address] [place] [address], [place] [address] Oct, [facility] [address] [id number] [address] [place] [address], [place] [address] 23 Oct, 2014 [facility] [address] [id number] [address] [place] [address], [place] [address] 18 Oct, 2014 [facility] [address] [id number] [address] [place] [address], [place] [address] 18 Oct, 2014 [facility] [address] [id number] [address] [place] [address], [place] [address] 17 Oct, 2014 [facility] [address] [id number] [address] [place] [address], [place] [address] 17 Oct, 2014 [facility] [address] [id number] [address] [place] [address] 16 Oct, 2014 [facility] [address] [id number] [address] [place] [address], [place] [address] 16 Oct, 2014 [facility] [address] [id number] [address] [place] [address], [place] [address] 11 Oct, 2014 [facility] [address] [id number] [address] [place] [address], [place] [address] 11 Oct, 2014 [facility] [address] [id number] [address] [place] [address], [place] [address] Sep, 2014 [facility] [address] [id number] [address] [place] [address], [place] [address] Sep, 2014 [facility] [address] [id number] [address] [place] [address], [place] [address] 19 Sep, 2014 [facility] [address] [id number] [address] [place] [address], [place] [address] 18 Sep, 2014 [facility] [address] [id number] [address] [place] [address], [place] [address] Sep, 2014 [facility] [address] [id number] [address] [place] [address], [place] [address] Sep, 2014 [facility] [address] [id number] [address] [place] [address], [place] [address] Sep, 2014 [facility] [address] [id number] [address] [place] [address], [place] [address] Aug, [facility] [address] [id number] [address] [place] [address], [place] [address] Aug, [facility] [address] [id number] [address] [place] [address], [place] [address] Aug, [facility] [address] [id number] [address] [place] [address], [place] [address] Aug, [facility] [address] [id number] [address] [place] [address], [place] [address] Aug, [facility] [address] [id number] [address] [place] [address], [place] [address] Aug, [facility] [address] [id number] [address] [place] [address], [place] [address] Jul, [facility] [address] [id number] [address] [place] [address], [place] [address] Jul, [facility] [address] [id number] [address] [place] [address], [place] [address] Jul, [facility] [address] [id number] [address] [place] [address], [place] [address] Jul, [facility] [address] [id number] [address] [place] [address], [place] [address] Jul, [facility] [address] [id number] [address] [place] [address], [place] [address] Jun, [facility] [address] [id number] [address] [place] [address], [place] [address] Jun, [facility] [address] [id number] [address] [place] [address], [place] [address] Jun, [facility] [address] [id number] [address] [place] [address], [place] [address] Jun, [facility] [address] [id number] [address] [place] [address], [place] [address] Jun, [facility] [address] [id number] [address] [place] [address], [place] [address] Jun, [facility] [address] [id number] [address] [place] [address], [place] [address] May, [facility] [address] [id number] [address] [place] [address], [place] [address] May, [facility] [address] [id number] [address] [place] [address], [place] [address] May, [facility] [address] [id number] [address] [place] [address] May, [facility] [address] [id number] [address] [place] [address], [place] [address] May, [facility] [address] [id number] [address] [place] [address], [place] [address] May, [facility] [address] [id number] [address] [place] [address], [place] [address] May, [facility] [address] [id number] [address] [place] [address], [place] [address] May, [facility] [address] [id number] [address] [place] [address], [place] [address] May, [facility] [address] [id number] [address] [place] [address], [place] [address] Apr, [facility] [address] [id number] [address] [place] [address], [place] [address] Apr, [facility] [address] [id number] [address] [place] [address], [place] [address] Apr, [facility] [address] [id number] [address] [place] [address], [place] [address] Apr, [facility] [address] [id number] [address] [place] [address], [place] [address] Mar, [facility] [address] [id number] [address] [place] [address], [place] [address] Mar, [facility] [address] [id number] [address] [place] [address], [place] [address] Mar, [facility] [address] [id number] [address] [place] [address], [place] [address] Mar, [facility] [address] [id number] [address] [place] [address], [place] [address] Mar, [facility] [address] [id number] [address] [place] [address], [place] [address] Mar, [facility] [address] [id number] [address] [place] [address], [place] [address] Feb, [facility] [address] [id number] [address] [place] [address], [place] [address] Feb, [facility] [address] [id number] [address] [place] [address], [place] [address] Feb, [facility] [address] [id number] [address] [place] [address], [place] [address] Feb, [facility] [address] [id number] [facility] [place] [address] Feb, 2013 [facility] [address] [id number] [facility] [place] [address] Feb, [facility] [address] [id number] [address] [place] [address], [place] [address] Feb, 2013 [facility] [address] [id number] [address] [place] [address], [place] [address] Feb, 2013 [facility] [address] [id number] [address] [place] [address], [place] [address] Feb, 2013 [facility] [address] [id number] [address] [place] [address], [place] [address] Feb, [facility] [address] [id number] [address] [place] [address], [place] [address] Feb, [facility] [address] [id number] [address] [place] [address], [place] [address] Feb, [facility] [address] [id number] [address] [place] [address], [place] [address] Jan, [facility] [address] [id number] [address] [place] [address], [place] [address] Jan, [facility] [address] [id number] [address] [place] [address], [place] [address] Jan, [facility] [address] [id number] [address] [place] [address], [place] [address] Jan, [facility] [address] [id number] [address] [place] [address], [place] [address] Jan, [facility] [address] [id number] [address] [place] [address], [place] [address] Jan, [facility] [address] [id number] [address] [place] [address], [place] [address] Jan, [facility] [address] [id number] [address] [place] [address], [place] [address] Jan, [facility] [address] [id number] [address] [place] [address], [place] [address] Jan, [facility] [address] [id number] [address] [place] [address], [place] [address] Jan, [facility] [address] [id number] [address] [place] [address], [place] [address] Jan, [facility] [address] [id number] [address] [place] [address], [place] [address] Jan, [facility] [address] [id number] [address] [place] [address], [place] [address] Jan, [facility] [address] [id number] [address] [place] [address], [place] [address] Jan, [facility] [address] [id number] [address] [place] [address], [place] [address] Jan, [facility] [address] [id number] [address] [place] [address], [place] [address] Jan, [facility] [address] [id number] [address] [place] [address], [place] [address] Jan, [facility] [address] [id number] [address] [place] [address], [place] [address] December, [facility] [address] [id number] [address] [place] [address], [place] [address] December, [facility] [address] [id number] [address] [place] [address], [place] [address] December, [facility] [address] [id number] [address] [place] [address], [place] [address] December, [facility] [address] [id number] [address] [place] [address], [place] [address] December, [facility] [address] [id number] [address] [place] [address], [place] [address] December, [facility] [address] [id number] [address] [place] [address], [place] [address] Nov, [facility] [address] [id number] [address] [place] [address], [place] [address] Nov, [facility] [address] [id number] [address] [place] [address], [place] [address] Nov, [facility] [address] [id number] [address] [place] [address], [place] [address] Nov, [facility] [address] [id number] [address] [place] [address], [place] [address] Nov, [facility] [address] [id number] [address] [place] [address], [place] [address] Nov, [facility] [address] [id number] [address] [place] [address], [place] [address] Nov, [facility] [address] [id number] [address] [place] [address], [place] [address] Nov, [facility] [address] [id number] [address] [place] [address], [place] [address] Nov, [facility] [address] [id number] [address] [place] [address], [place] [address] Nov, [facility] [address] [id number] [address] [place] [address], [place] [address] Nov, [facility] [address] [id number] [address] [place] [address], [place] [address] Nov, [facility] [address] [id number] [address] [place] [address], [place] [address] Nov, [facility] [address] [id number] [address] [place] [address], [place] [address] Nov, [facility] [address] [id number] [address] [place] [address], [place] [address] Nov, [facility] [address] [id number] [address] [place] [address], [place] [address] Nov, [facility] [address] [id number] [address] [place] [address], [place] [address] Oct, [facility] [address] [id number] [address] [place] [address], [place] [address] Oct, [facility] [address] [id number] [address] [place] [address], [place] [address] Oct, [facility] [address] [id number] [address] [place] [address], [place] [address] Oct, [facility] [address] [id number] [address] [place] [address], [place] [address] Oct, [facility] [address] [id number] [address] [place] [address], [place] [address] Oct, [facility] [address] [id number] [address] [place] [address], [place] [address] Oct, [facility] [address] [id number] [address] [place] [address], [place] [address] Oct, [facility] [address] [id number] [address] [place] [address], [place] [address] Sep, [facility] [address] [id number] [address] [place] [address], [place] [address] Sep, [facility] [address] [id number] [address] [place] [address], [place] [address] Sep, [facility] [address] [id number] [address] [place] [address], [place] [address] Sep, [facility] [address] [id number] [address] [place] [address], [place] [address] Sep, [facility] [address] [id number] [address] [place] [address], [place] [address] Sep, [facility] [address] [id number] [address] [place] [address], [place] [address] Aug, [facility] [address] [id number] [address] [place] [address], [place] [address] Aug, [facility] [address] [id number] [address] [place] [address], [place] [address] Aug, [facility] [address] [id number] [address] [place] [address], [place] [address] Aug, [facility] [address] [id number] [address] [place] [address], [place] [address] Aug, [facility] [address] [id number] [address] [place] [address], [place] [address] Aug, [facility] [address] [id number] [address] [place] [address], [place] [address] Aug, [facility] [address] [id number] [address] [place] [address], [place] [address] Aug, [facility] [address] [id number] [address] [place] [address], [place] [address] Jul, [facility] [address] [id number] [address] [place] [address], [place] [address] Jul, [facility] [address] [id number] [address] [place] [address], [place] [address] Jul, [facility] [address] [id number] [address] [place] [address], [place] [address] Jul, [facility] [address] [id number] [address] [place] [address], [place] [address] Jul, [facility] [address] [id number] [address] [place] [address], [place] [address] Jul, [facility] [address] [id number] [address] [place] [address], [place] [id number] Jul, [facility] [address] [id number] [address] [place] [address], [place] [address] Jul, [facility] [address] [id number] [address] [place] [address], [place] [address] Jul, [facility] [address] [id number] [address] [place] [address], [place] [address] 14 Jun, 2013 [facility] [address] [id number] [address] [place] [address], [place] [address] 14 Jun, 2013 [facility] [address] [id number] [address] [place] [address], [place] [address] Jun, [facility] [address] [id number] [address] [place] [address], [place] [address] Jun, [facility] [address] [id number] [address] [place] [address], [place] [address] Jun, [facility] [address] [id number] [address] [place] [address], [place] [address] Jun, [facility] [address] [id number] [address] [place] [address], [place] [address] 31 May, 2013 [facility] [address] [id number] [address] [place] [address], [place] [address] 31 May, 2013 [facility] [address] [id number] [address] [place] [address], [place] [address] 17 May, 2013 [facility] [address] [id number] [address] [place] [address], [place] [address] 17 May, 2013 [facility] [address] [id number] [address] [place] [address], [place] [address] 14 May, 2013 [facility] [address] [id number] [address] [place] [address], [place] [address] 14 May, 2013 [facility] [address] [id number] [address] [place] [address], [place] [address] 10 May, 2013 [facility] [address] [id number] [address] [place] [address], [place] [address] 10 May, 2013 [facility] [address] [id number] [address] [place] [id number] 07 May, 2013 [facility] [address] [id number] [address] [place] [id number] 20 Sep, 2012 [facility] [address] [id number] [address] [place] [address], [place] [address] 19 Sep, 2012 [facility] [address] [id number] [address] [place] [address], [place] [address] 12 Apr, 2012 [facility] [address] [id number] [address] [place] [address], [place] [address] 24 Sep, 2011 [facility] [address] [id number] [address] [place] [address], [place] [address] 21 Sep, 2011 [facility] [address] [id number] [address] [place] [address], [place] [address] 21 Apr, 2011 [facility] [address] [id number] [address] [place] [address], [place] [address] 14 Apr, 2011 [facility] [address] [id number] [address] [place] [address], [place] [address] 10 Apr, 2011 [facility] [address] [id number] [address] [place] [address], [place] [address] 06 Apr, 2011 [facility] [address] [id number] [address] [place] [address], [place] [address] 04 Apr, 2011 [facility] [address] [id number] [address] [place] [address], [place] [address] 31 Mar, 2012 [facility] [address] [id number] [address] [place] [address], [place] [address] 28 Mar, 2012 [facility] [address] [id number] [address] [place] [address], [place] [address] 27 Mar, 2012 [facility] [address] [id number] [address] [place] [address], [place] [address] 10 Mar, 2012 [facility] [address] [id number] [address] [place] [address], [place] [address] 08 Mar, 2012 [facility] [address] [id number] [address] [place] [address], [place] [address] 03 Mar, 2012 [facility] [address] [id number] [address] [place] [address], [place] [address] Feb, [facility] [address] [id number] [address] [place] [address], [place] [address] Feb, [facility] [address] [id number] [address] [place] [address], [place] [address] Feb, [facility] [address] [id number] [address] [place] [address], [place] [address] Jan, [facility] [address] [id number] [address] [place] [address], [place] [address] Jan, [facility] [address] [id number] [address] [place] [address], [place] [address] Jan, [facility] [address] [id number] [address] [place] [address], [place] [address] Jan, [facility] [address] [id number] [address] [place] [address], [place] [address] Jan, [facility] [address] [id number] [address] [place] [address], [place] [address] Jan, [facility] [address] [id number] [address] [place] [address], [place] [address] Jan, [facility] [address] [id number] [address] [place] [address], [place] [address] Jan, [facility] [address] [id number] [address] [place] [address], [place] [address] December, [facility] [address] [id number] [address] [place] [address], [place] [id number] December, [facility] [address] [id number] [address] [place] [address], [place] [address] December, [facility] [address] [id number] [address] [place] [address], [place] [address] December, [facility] [address] [id number] [address] [place] [address], [place] [address] December, [facility] [address] [id number] [address] [place] [address], [place] [address] December, [facility] [address] [id number] [address] [place] [address], [place] [address] 13 Nov, 2011 [facility] [address] [id number] [address] [place] [address], [place] [address] 13 Nov, 2011 [facility] [address] [id number] [address] [place] [address], [place] [address] Nov, [facility] [address] [id number] [address] [place] [address], [place] [address] Nov, [facility] [address] [id number] [address] [place] [address], [place] [address] Nov, [facility] [address] [id number] [address] [place] [address], [place] [address] Oct, [facility] [address] [id number] [address] [place] [address], [place] [address] 17 Sep, 2011 [facility] [address] [id number] [address] [place] [address], [place] [address] Aug, [facility] [address] [id number] [address] [place] [address], [place] [address] Aug, [facility] [address] [id number] [address] [place] [address], [place] [address] Aug, [facility] [address] [id number] [address] [place] [address], [place] [address] Aug, [facility] [address] [id number] [address] [place] [address], [place] [address] Aug, [facility] [address] [id number] [address] [place] [address], [place] [address] Jul, [facility] [address] [id number] [address] [place] [address], [place] [address] Jul, [facility] [address] [id number] [address] [place] [address], [place] [address] Jun, [facility] [address] [id number] [address] [place] [address], [place] [address] Jun, [facility] [address] [id number] [address] [place] [address], [place] [address] Jun, [facility] [address] [id number] [address] [place] [address], [place] [address] May, [facility] [address] [id number] [address] [place] [address], [place] [address] May, [facility] [address] [id number] [address] [place] [address], [place] [address] 16 Oct, 2010 [facility] [address] [id number] [address] [place] [address], [place] [address] Oct, [facility] [address] [id number] [address] [place] [address], [place] [address] 29 Jul, 2010 [facility] [address] [id number] [address] [place] [address], [place] [address] 08 Jul, 2010 [facility] [address] [id number] [address] [place] [address], [place] [address] Jul, [facility] [address] [id number] [address] [place] [address], [place] [address] Jul, [facility] [address] [id number] [address] [place] [address], [place] [address] Jul, [facility] [address] [id number] [address] [place] [address], [place] [address] Jun, [facility] [address] [id number] [address] [place] [address], [place] [address] Jun, [facility] [address] [id number] [address] [place] [address], [place] [address] Jun, [facility] [address] [id number] [address] [place] [address], [place] [address] May, [facility] [place] [address] [facility] [id number] [address] [place] [address] 16 Mar, 2010 IMMUNIZATIONS No Known Immunizations [...]
--- OUTSIDE RECORDS SUMMARY | 2019-11-28 22:49 | XMS REPORT ---
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 Name Role Phone LAURIE LYLE Unavailable PROBLEMS Type Condition ICD9-CM Code MAU01-FR Code Onset Dates Condition S tatus SNOMED Code Problem COPD (chronic obstructive pulmonary disease) J44.9 Active 11500488 Problem Diabetes E11.9 Active 33268715 Problem Diabetic neuropathy E11.40 Active 116862203 Problem Arthritis M19.90 Active 6847331 ALLERGIES No Information ENCOUNTERS Encounter Location Date Diagnosis [facility] [address] [facility] [id number] [address] [place] [address] December, [facility] [address] [id number] [address] [place] [address] Aug, Arthritis M19.90 [facility] [address] [facility] [id number] [address] [place] [address] Jul, [facility] [address] [facility] [id number] [address] [place] [address] Jul, [facility] [address] [facility] [id number] [address] [place] [address] Jul, [facility] [address] [id number] [address] [place] [address] Jul, [facility] [address] [facility] [id number] [address] [place] [address] Jul, Diabetes E11.9 ; Diabetic ne uropathy E11.40 ; Arthritis M19.90 and COPD (chronic obstructive pulmonary disease) J44.9 [facility] [address] [facility] [id number] [address] [place] [address] Jul, [facility] [address] [id number] [address] [place] [address], [place] [address] 23 Jun, 2015 [facility] [address] [id number] [address] [place] [address], [place] [address] 23 Jun, 2015 [facility] [address] [id number] [address] [place] [address], [place] [address] 17 Jun, 2014 [facility] [address] [id number] [address] [place] [address], [place] [address] 10 Jun, 2014 [facility] [address] [id number] [address] [place] [address], [place] [address] 15 May, 2015 [facility] [address] [id number] [address] [place] [address], [place] [address] 13 May, 2015 [facility] [address] [id number] [address] [place] [address], [place] [address] 07 May, 2015 [facility] [address] [id number] [address] [place] [address], [place] [address] 22 Sep, 2014 [facility] [address] [id number] [address] [place] [address], [place] [address] 21 Sep, 2014 [facility] [address] [id number] [address] [place] [address], [place] [address] 21 Sep, 2014 [facility] [address] [id number] [address] [place] [address], [place] [address] 15 Sep, 2014 [facility] [address] [id number] [address] [place] [address], [place] [address] 11 Sep, 2014 [facility] [address] [id number] [address] [place] [address], [place] [address] 09 Sep, 2014 [facility] [address] [id number] [address] [place] [address], [place] [address] 08 Sep, 2014 [facility] [address] [id number] [address] [place] [address], [place] [address] 03 Sep, 2014 [facility] [address] [id number] [address] [place] [address] [address] Apr, [facility] [address] [facility] [id number] [address] [place] [address] Mar, [facility] [address] [facility] [id number] [address] [place] [address] Mar, [facility] [address] [facility] [id number] [address] [place] [address] Mar, [facility] [address] [facility] [id number] [address] [place] [address] Mar, [facility] [address] [facility] [id number] [address] [place] [address] Mar, [facility] [address] [facility] [id number] [address] [place] [address] Mar, Diabetes mellitus 250.00 ; C OPD (chronic obstructive pulmonary disease) 496 ; Anxiety 300.00 and Arthritis 716.90 [facility] [address] [facility] [id number] [address] [place] [address] Feb, [facility] [address] [facility] [id number] [address] [place] [address] Feb, [facility] [address] [facility] [id number] [address] [place] [address] Feb, [facility] [address] [facility] [id number] [address] [place] [address] Feb, [facility] [address] [facility] [id number] [address] [place] [address] Jan, Seborrheic keratosis 702.19 and Nevus 216.9 [facility] [address] [facility] [id number] [address] [place] [address] Jan, [facility] [address] [facility] [id number] [address] [place] [address] Jan, Routine gynecological examin ation V72.31 ; Breast cancer screening V76.10 ; Hot flashes 627.2 ; Atypical nevi 216.9 and Constipation 564.00 [facility] [address] [id number] [address] [place] [address], [place] [address] Jan, [facility] [address] [id number] [address] [place] [address], [place] [address] December, [facility] [address] [id number] [address] [place] [address], [place] [address] December, [facility] [address] [id number] [address] [place] [address], [place] [address] Nov, [facility] [address] [id number] [address] [place] [address], [place] [address] Nov, [facility] [address] [id number] [address] [place] [address], [place] [address] Oct, [facility] [address] [id number] [address] [place] [address], [place] [address] 23 Oct, 2014 [facility] [address] [id number] [address] [place] [address], [place] [address] 18 Oct, 2014 [facility] [address] [id number] [address] [place] [address], [place] [address] 18 Oct, 2014 [facility] [address] [id number] [address] [place] [address], [place] [address] 17 Oct, 2014 [facility] [address] [id number] [address] [place] [address], [place] [address] 17 Oct, 2014 [facility] [address] [id number] [address] [place] [address] 16 Oct, 2014 [facility] [address] [id number] [address] [place] [address], [place] [address] 16 Oct, 2014 [facility] [address] [id number] [address] [place] [address], [place] [address] 11 Oct, 2014 [facility] [address] [id number] [address] [place] [address], [place] [address] 11 Oct, 2014 [facility] [address] [id number] [address] [place] [address], [place] [address] Sep, 2014 [facility] [address] [id number] [address] [place] [address], [place] [address] Sep, 2014 [facility] [address] [id number] [address] [place] [address], [place] [address] 19 Sep, 2014 [facility] [address] [id number] [address] [place] [address], [place] [address] 18 Sep, 2014 [facility] [address] [id number] [address] [place] [address], [place] [address] Sep, 2014 [facility] [address] [id number] [address] [place] [address], [place] [address] Sep, 2014 [facility] [address] [id number] [address] [place] [address], [place] [address] Sep, 2014 [facility] [address] [id number] [address] [place] [address], [place] [address] Aug, [facility] [address] [id number] [address] [place] [address], [place] [address] Aug, [facility] [address] [id number] [address] [place] [address], [place] [address] Aug, [facility] [address] [id number] [address] [place] [address], [place] [address] Aug, [facility] [address] [id number] [address] [place] [address], [place] [address] Aug, [facility] [address] [id number] [address] [place] [address], [place] [address] Aug, [facility] [address] [id number] [address] [place] [address], [place] [address] Jul, [facility] [address] [id number] [address] [place] [address], [place] [address] Jul, [facility] [address] [id number] [address] [place] [address], [place] [address] Jul, [facility] [address] [id number] [address] [place] [address], [place] [address] Jul, [facility] [address] [id number] [address] [place] [address], [place] [address] Jul, [facility] [address] [id number] [address] [place] [address], [place] [address] Jun, [facility] [address] [id number] [address] [place] [address], [place] [address] Jun, [facility] [address] [id number] [address] [place] [address], [place] [address] Jun, [facility] [address] [id number] [address] [place] [address], [place] [address] Jun, [facility] [address] [id number] [address] [place] [address], [place] [address] Jun, [facility] [address] [id number] [address] [place] [address], [place] [address] Jun, [facility] [address] [id number] [address] [place] [address], [place] [address] May, [facility] [address] [id number] [address] [place] [address], [place] [address] May, [facility] [address] [id number] [address] [place] [address], [place] [address] May, [facility] [address] [id number] [address] [place] [address] May, [facility] [address] [id number] [address] [place] [address], [place] [address] May, [facility] [address] [id number] [address] [place] [address], [place] [address] May, [facility] [address] [id number] [address] [place] [address], [place] [address] May, [facility] [address] [id number] [address] [place] [address], [place] [address] May, [facility] [address] [id number] [address] [place] [address], [place] [address] May, [facility] [address] [id number] [address] [place] [address], [place] [address] Apr, [facility] [address] [id number] [address] [place] [address], [place] [address] Apr, [facility] [address] [id number] [address] [place] [address], [place] [address] Apr, [facility] [address] [id number] [address] [place] [address], [place] [address] Apr, [facility] [address] [id number] [address] [place] [address], [place] [address] Mar, [facility] [address] [id number] [address] [place] [address], [place] [address] Mar, [facility] [address] [id number] [address] [place] [address], [place] [address] Mar, [facility] [address] [id number] [address] [place] [address], [place] [address] Mar, [facility] [address] [id number] [address] [place] [address], [place] [address] Mar, [facility] [address] [id number] [address] [place] [address], [place] [address] Mar, [facility] [address] [id number] [address] [place] [address], [place] [address] Feb, [facility] [address] [id number] [address] [place] [address], [place] [address] Feb, [facility] [address] [id number] [address] [place] [address], [place] [address] Feb, [facility] [address] [id number] [address] [place] [address], [place] [address] Feb, [facility] [address] [id number] [facility] [place] [address] Feb, 2013 [facility] [address] [id number] [facility] [place] [address] Feb, [facility] [address] [id number] [address] [place] [address], [place] [address] Feb, 2013 [facility] [address] [id number] [address] [place] [address], [place] [address] Feb, 2013 [facility] [address] [id number] [address] [place] [address], [place] [address] Feb, 2013 [facility] [address] [id number] [address] [place] [address], [place] [address] Feb, [facility] [address] [id number] [address] [place] [address], [place] [address] Feb, [facility] [address] [id number] [address] [place] [address], [place] [address] Feb, [facility] [address] [id number] [address] [place] [address], [place] [address] Jan, [facility] [address] [id number] [address] [place] [address], [place] [address] Jan, [facility] [address] [id number] [address] [place] [address], [place] [address] Jan, [facility] [address] [id number] [address] [place] [address], [place] [address] Jan, [facility] [address] [id number] [address] [place] [address], [place] [address] Jan, [facility] [address] [id number] [address] [place] [address], [place] [address] Jan, [facility] [address] [id number] [address] [place] [address], [place] [address] Jan, [facility] [address] [id number] [address] [place] [address], [place] [address] Jan, [facility] [address] [id number] [address] [place] [address], [place] [address] Jan, [facility] [address] [id number] [address] [place] [address], [place] [address] Jan, [facility] [address] [id number] [address] [place] [address], [place] [address] Jan, [facility] [address] [id number] [address] [place] [address], [place] [address] Jan, [facility] [address] [id number] [address] [place] [address], [place] [address] Jan, [facility] [address] [id number] [address] [place] [address], [place] [address] Jan, [facility] [address] [id number] [address] [place] [address], [place] [address] Jan, [facility] [address] [id number] [address] [place] [address], [place] [address] Jan, [facility] [address] [id number] [address] [place] [address], [place] [address] Jan, [facility] [address] [id number] [address] [place] [address], [place] [address] December, [facility] [address] [id number] [address] [place] [address], [place] [address] December, [facility] [address] [id number] [address] [place] [address], [place] [address] December, [facility] [address] [id number] [address] [place] [address], [place] [address] December, [facility] [address] [id number] [address] [place] [address], [place] [address] December, [facility] [address] [id number] [address] [place] [address], [place] [address] December, [facility] [address] [id number] [address] [place] [address], [place] [address] Nov, [facility] [address] [id number] [address] [place] [address], [place] [address] Nov, [facility] [address] [id number] [address] [place] [address], [place] [address] Nov, [facility] [address] [id number] [address] [place] [address], [place] [address] Nov, [facility] [address] [id number] [address] [place] [address], [place] [address] Nov, [facility] [address] [id number] [address] [place] [address], [place] [address] Nov, [facility] [address] [id number] [address] [place] [address], [place] [address] Nov, [facility] [address] [id number] [address] [place] [address], [place] [address] Nov, [facility] [address] [id number] [address] [place] [address], [place] [address] Nov, [facility] [address] [id number] [address] [place] [address], [place] [address] Nov, [facility] [address] [id number] [address] [place] [address], [place] [address] Nov, [facility] [address] [id number] [address] [place] [address], [place] [address] Nov, [facility] [address] [id number] [address] [place] [address], [place] [address] Nov, [facility] [address] [id number] [address] [place] [address], [place] [address] Nov, [facility] [address] [id number] [address] [place] [address], [place] [address] Nov, [facility] [address] [id number] [address] [place] [address], [place] [address] Nov, [facility] [address] [id number] [address] [place] [address], [place] [address] Oct, [facility] [address] [id number] [address] [place] [address], [place] [address] Oct, [facility] [address] [id number] [address] [place] [address], [place] [address] Oct, [facility] [address] [id number] [address] [place] [address], [place] [address] Oct, [facility] [address] [id number] [address] [place] [address], [place] [address] Oct, [facility] [address] [id number] [address] [place] [address], [place] [address] Oct, [facility] [address] [id number] [address] [place] [address], [place] [address] Oct, [facility] [address] [id number] [address] [place] [address], [place] [address] Oct, [facility] [address] [id number] [address] [place] [address], [place] [address] Sep, [facility] [address] [id number] [address] [place] [address], [place] [address] Sep, [facility] [address] [id number] [address] [place] [address], [place] [address] Sep, [facility] [address] [id number] [address] [place] [address], [place] [address] Sep, [facility] [address] [id number] [address] [place] [address], [place] [address] Sep, [facility] [address] [id number] [address] [place] [address], [place] [address] Sep, [facility] [address] [id number] [address] [place] [address], [place] [address] Aug, [facility] [address] [id number] [address] [place] [address], [place] [address] Aug, [facility] [address] [id number] [address] [place] [address], [place] [address] Aug, [facility] [address] [id number] [address] [place] [address], [place] [address] Aug, [facility] [address] [id number] [address] [place] [address], [place] [address] Aug, [facility] [address] [id number] [address] [place] [address], [place] [address] Aug, [facility] [address] [id number] [address] [place] [address], [place] [address] Aug, [facility] [address] [id number] [address] [place] [address], [place] [address] Aug, [facility] [address] [id number] [address] [place] [address], [place] [address] Jul, [facility] [address] [id number] [address] [place] [address], [place] [address] Jul, [facility] [address] [id number] [address] [place] [address], [place] [address] Jul, [facility] [address] [id number] [address] [place] [address], [place] [address] Jul, [facility] [address] [id number] [address] [place] [address], [place] [address] Jul, [facility] [address] [id number] [address] [place] [address], [place] [address] Jul, [facility] [address] [id number] [address] [place] [address], [place] [address] Jul, [facility] [address] [id number] [address] [place] [address], [place] [address] Jul, [facility] [address] [id number] [address] [place] [address], [place] [address] Jul, [facility] [address] [id number] [address] [place] [address], [place] [address] 14 Jun, 2013 [facility] [address] [id number] [address] [place] [address], [place] [address] 14 Jun, 2013 [facility] [address] [id number] [address] [place] [address], [place] [address] Jun, [facility] [address] [id number] [address] [place] [address], [place] [address] Jun, [facility] [address] [id number] [address] [place] [address], [place] [address] Jun, [facility] [address] [id number] [address] [place] [address], [place] [address] Jun, [facility] [address] [id number] [address] [place] [address], [place] [address] 31 May, 2013 [facility] [address] [id number] [address] [place] [address], [place] [address] 31 May, 2013 [facility] [address] [id number] [address] [place] [address], [place] [address] 17 May, 2013 [facility] [address] [id number] [address] [place] [address], [place] [address] 17 May, 2013 [facility] [address] [id number] [address] [place] [address], [place] [address] 14 May, 2013 [facility] [address] [id number] [address] [place] [address], [place] [address] 14 May, 2013 [facility] [address] [id number] [address] [place] [address], [place] [address] 10 May, 2013 [facility] [address] [id number] [address] [place] [address], [place] [address] 10 May, 2013 [facility] [address] [id number] [address] [place] [id number] 07 May, 2013 [facility] [address] [id number] [address] [place] [address] 20 Sep, 2012 [facility] [address] [id number] [address] [place] [address], [place] [address] 19 Sep, 2012 [facility] [address] [id number] [address] [place] [address], [place] [address] 12 Apr, 2012 [facility] [address] [id number] [address] [place] [address], [place] [address] 24 Sep, 2011 [facility] [address] [id number] [address] [place] [address], [place] [address] 21 Sep, 2011 [facility] [address] [id number] [address] [place] [address], [place] [address] 21 Apr, 2011 [facility] [address] [id number] [address] [place] [address], [place] [address] 14 Apr, 2011 [facility] [address] [id number] [address] [place] [address], [place] [address] 10 Apr, 2011 [facility] [address] [id number] [address] [place] [address], [place] [address] 06 Apr, 2011 [facility] [address] [id number] [address] [place] [address], [place] [address] 04 Apr, 2011 [facility] [address] [id number] [address] [place] [address], [place] [address] 31 Mar, 2012 [facility] [address] [id number] [address] [place] [address], [place] [address] 28 Mar, 2012 [facility] [address] [id number] [address] [place] [address], [place] [address] 27 Mar, 2012 [facility] [address] [id number] [address] [place] [address], [place] [address] 10 Mar, 2012 [facility] [address] [id number] [address] [place] [address], [place] [address] 08 Mar, 2012 [facility] [address] [id number] [address] [place] [address], [place] [address] 03 Mar, 2012 [facility] [address] [id number] [address] [place] [address], [place] [address] Feb, [facility] [address] [id number] [address] [place] [address], [place] [address] Feb, [facility] [address] [id number] [address] [place] [address], [place] [address] Feb, [facility] [address] [id number] [address] [place] [address], [place] [address] Jan, [facility] [address] [id number] [address] [place] [address], [place] [address] Jan, [facility] [address] [id number] [address] [place] [address], [place] [address] Jan, [facility] [address] [id number] [address] [place] [address], [place] [address] Jan, [facility] [address] [id number] [address] [place] [address], [place] [address] Jan, [facility] [address] [id number] [address] [place] [address], [place] [address] Jan, [facility] [address] [id number] [address] [place] [address], [place] [address] Jan, [facility] [address] [id number] [address] [place] [address], [place] [address] Jan, [facility] [address] [id number] [address] [place] [address], [place] [address] December, [facility] [address] [id number] [address] [place] [address], [place] [address] December, [facility] [address] [id number] [address] [place] [address], [place] [address] December, [facility] [address] [id number] [address] [place] [address], [place] [address] December, [facility] [address] [id number] [address] [place] [address], [place] [address] December, [facility] [address] [id number] [address] [place] [address], [place] [address] December, [facility] [address] [id number] [address] [place] [address], [place] [address] 13 Nov, 2011 [facility] [address] [id number] [address] [place] [address], [place] [address] 13 Nov, 2011 [facility] [address] [id number] [address] [place] [address], [place] [address] Nov, [facility] [address] [id number] [address] [place] [address], [place] [address] Nov, [facility] [address] [id number] [address] [place] [address], [place] [address] Nov, [facility] [address] [id number] [address] [place] [address], [place] [address] Oct, [facility] [address] [id number] [address] [place] [address], [place] [address] 17 Sep, 2011 [facility] [address] [id number] [address] [place] [address], [place] [address] Aug, [facility] [address] [id number] [address] [place] [address], [place] [address] Aug, [facility] [address] [id number] [address] [place] [address], [place] [address] Aug, [facility] [address] [id number] [address] [place] [address], [place] [address] Aug, [facility] [address] [id number] [address] [place] [address], [place] [address] Aug, [facility] [address] [id number] [address] [place] [address], [place] [address] Jul, [facility] [address] [id number] [address] [place] [address], [place] [address] Jul, [facility] [address] [id number] [address] [place] [address], [place] [address] Jun, [facility] [address] [id number] [address] [place] [address], [place] [address] Jun, [facility] [address] [id number] [address] [place] [address], [place] [address] Jun, [facility] [address] [id number] [address] [place] [address], [place] [address] May, [facility] [address] [id number] [address] [place] [address], [place] [address] May, [facility] [address] [id number] [address] [place] [address], [place] [address] 16 Oct, 2010 [facility] [address] [id number] [address] [place] [address], [place] [address] Oct, [facility] [address] [id number] [address] [place] [address], [place] [address] 29 Jul, 2010 [facility] [address] [id number] [address] [place] [address], [place] [address] 08 Jul, 2010 [facility] [address] [id number] [address] [place] [address], [place] [address] Jul, [facility] [address] [id number] [address] [place] [address], [place] [address] Jul, [facility] [address] [id number] [address] [place] [address], [place] [address] Jul, [facility] [address] [id number] [address] [place] [address], [place] [address] Jun, [facility] [address] [id number] [address] [place] [address], [place] [address] Jun, [facility] [address] [id number] [address] [place] [address], [place] [address] Jun, [facility] [address] [id number] [address] [place] [address], [place] [address] May, [facility] [address] [facility] [id number] [address] [place] [address] 16 Mar, 2010 IMMUNIZATIONS No Known Immunizations [...]
--- OUTSIDE RECORDS SUMMARY | 2019-11-28 22:50 | XMS REPORT ---
Author Author Caren LYLE Organization [facility] Address [address] [place] [address] Care Team Providers Care Counter Hand Name Role Phone LAURIE LYLE Unavailable PROBLEMS Type Condition ICD9-CM Code [id number] Code Onset Dates Condition S tatus SNOMED Code Problem COPD (chronic obstructive pulmonary disease) J44.9 Active 26142304 Problem Diabetes E11.9 Active 40097624 Problem Diabetic neuropathy E11.40 Active 714382166 Problem Arthritis M19.90 Active 1245859 ALLERGIES No Information ENCOUNTERS Encounter Location Date Diagnosis [facility] [address] [facility] [id number] [address] [place] [address] December, [facility] [address] [id number] [address] [place] [address] Aug, Arthritis M19.90 [facility] [address] [facility] [id number] [address] [place] [address] Jul, [facility] [address] [facility] [id number] [address] [place] [address] Jul, [facility] [address] [facility] [id number] [address] [place] [address] Jul, [facility] [address] [id number] [address] [place] [address] Jul, [facility] [address] [facility] [id number] [address] [place] [address] Jul, Diabetes E11.9 ; Diabetic ne uropathy E11.40 ; Arthritis M19.90 and COPD (chronic obstructive pulmonary disease) J44.9 [facility] [address] [facility] [id number] [address] [place] [address] Jul, [facility] [address] [id number] [address] [place] [address], [place] [address] 23 Jun, 2015 [facility] [address] [id number] [address] [place] [address], [place] [address] 23 Jun, 2015 [facility] [address] [id number] [address] [place] [address], [place] [address] 17 Jun, 2014 [facility] [address] [id number] [address] [place] [address], [place] [address] 10 Jun, 2014 [facility] [address] [id number] [address] [place] [address], [place] [address] 15 May, 2015 [facility] [address] [id number] [address] [place] [address], [place] [address] 13 May, 2015 [facility] [address] [id number] [address] [place] [address], [place] [address] 07 May, 2015 [facility] [address] [id number] [address] [place] [address], [place] [address] 22 Sep, 2014 [facility] [address] [id number] [address] [place] [address], [place] [address] 21 Sep, 2014 [facility] [address] [id number] [address] [place] [address], [place] [address] 21 Sep, 2014 [facility] [address] [id number] [address] [place] [address], [place] [address] 15 Sep, 2014 [facility] [address] [id number] [address] [place] [address], [place] [address] 11 Sep, 2014 [facility] [address] [id number] [address] [place] [address], [place] [address] 09 Sep, 2014 [facility] [address] [id number] [address] [place] [address], [place] [address] 08 Sep, 2014 [facility] [address] [id number] [address] [place] [address], [place] [address] 03 Sep, 2014 [facility] [address] [id number] [address] [place] [address] [address] Apr, [facility] [address] [facility] [id number] [address] [place] [address] Mar, [facility] [address] [facility] [id number] [address] [place] [address] Mar, [facility] [address] [facility] [id number] [address] [place] [address] Mar, [facility] [address] [facility] [id number] [address] [place] [address] Mar, [facility] [address] [facility] [id number] [address] [place] [address] Mar, [facility] [address] [facility] [id number] [address] [place] [address] Mar, Diabetes mellitus 250.00 ; C OPD (chronic obstructive pulmonary disease) 496 ; Anxiety 300.00 and Arthritis 716.90 [facility] [address] [facility] [id number] [address] [place] [address] Feb, [facility] [address] [facility] [id number] [address] [place] [address] Feb, [facility] [address] [facility] [id number] [address] [place] [address] Feb, [facility] [address] [facility] [id number] [address] [place] [address] Feb, [facility] [address] [facility] [id number] [address] [place] [address] Jan, Seborrheic keratosis 702.19 and Nevus 216.9 [facility] [address] [facility] [id number] [address] [place] [address] Jan, [facility] [address] [facility] [id number] [address] [place] [address] Jan, Routine gynecological examin ation V72.31 ; Breast cancer screening V76.10 ; Hot flashes 627.2 ; Atypical nevi 216.9 and Constipation 564.00 [facility] [address] [id number] [address] [place] [address], [place] [address] Jan, [facility] [address] [id number] [address] [place] [address], [place] [address] December, [facility] [address] [id number] [address] [place] [address], [place] [address] December, [facility] [address] [id number] [address] [place] [address], [place] [address] Nov, [facility] [address] [id number] [address] [place] [address], [place] [address] Nov, [facility] [address] [id number] [address] [place] [address], [place] [address] Oct, [facility] [address] [id number] [address] [place] [address], [place] [address] 23 Oct, 2014 [facility] [address] [id number] [address] [place] [address], [place] [address] 18 Oct, 2014 [facility] [address] [id number] [address] [place] [address], [place] [address] 18 Oct, 2014 [facility] [address] [id number] [address] [place] [address], [place] [address] 17 Oct, 2014 [facility] [address] [id number] [address] [place] [address], [place] [address] 17 Oct, 2014 [facility] [address] [id number] [address] [place] [address] 16 Oct, 2014 [facility] [address] [id number] [address] [place] [address], [place] [address] 16 Oct, 2014 [facility] [address] [id number] [address] [place] [address], [place] [address] 11 Oct, 2014 [facility] [address] [id number] [address] [place] [address], [place] [address] 11 Oct, 2014 [facility] [address] [id number] [address] [place] [address], [place] [address] Sep, 2014 [facility] [address] [id number] [address] [place] [address], [place] [address] Sep, 2014 [facility] [address] [id number] [address] [place] [address], [place] [address] 19 Sep, 2014 [facility] [address] [id number] [address] [place] [address], [place] [address] 18 Sep, 2014 [facility] [address] [id number] [address] [place] [address], [place] [address] Sep, 2014 [facility] [address] [id number] [address] [place] [address], [place] [address] Sep, 2014 [facility] [address] [id number] [address] [place] [address], [place] [address] Sep, 2014 [facility] [address] [id number] [address] [place] [address], [place] [address] Aug, [facility] [address] [id number] [address] [place] [address], [place] [address] Aug, [facility] [address] [id number] [address] [place] [address], [place] [address] Aug, [facility] [address] [id number] [address] [place] [address], [place] [address] Aug, [facility] [address] [id number] [address] [place] [address], [place] [address] Aug, [facility] [address] [id number] [address] [place] [address], [place] [address] Aug, [facility] [address] [id number] [address] [place] [address], [place] [address] Jul, [facility] [address] [id number] [address] [place] [address], [place] [address] Jul, [facility] [address] [id number] [address] [place] [address], [place] [address] Jul, [facility] [address] [id number] [address] [place] [address], [place] [address] Jul, [facility] [address] [id number] [address] [place] [address], [place] [address] Jul, [facility] [address] [id number] [address] [place] [address], [place] [address] Jun, [facility] [address] [id number] [address] [place] [address], [place] [address] Jun, [facility] [address] [id number] [address] [place] [address], [place] [address] Jun, [facility] [address] [id number] [address] [place] [address], [place] [address] Jun, [facility] [address] [id number] [address] [place] [address], [place] [address] Jun, [facility] [address] [id number] [address] [place] [address], [place] [address] Jun, [facility] [address] [id number] [address] [place] [address], [place] [address] May, [facility] [address] [id number] [address] [place] [address], [place] [address] May, [facility] [address] [id number] [address] [place] [address], [place] [address] May, [facility] [address] [id number] [address] [place] [address] May, [facility] [address] [id number] [address] [place] [address], [place] [address] May, [facility] [address] [id number] [address] [place] [address], [place] [address] May, [facility] [address] [id number] [address] [place] [address], [place] [address] May, [facility] [address] [id number] [address] [place] [address], [place] [address] May, [facility] [address] [id number] [address] [place] [address], [place] [address] May, [facility] [address] [id number] [address] [place] [address], [place] [address] Apr, [facility] [address] [id number] [address] [place] [address], [place] [address] Apr, [facility] [address] [id number] [address] [place] [address], [place] [address] Apr, [facility] [address] [id number] [address] [place] [address], [place] [address] Apr, [facility] [address] [id number] [address] [place] [address], [place] [address] Mar, [facility] [address] [id number] [address] [place] [address], [place] [address] Mar, [facility] [address] [id number] [address] [place] [address], [place] [address] Mar, [facility] [address] [id number] [address] [place] [address], [place] [address] Mar, [facility] [address] [id number] [address] [place] [address], [place] [address] Mar, [facility] [address] [id number] [address] [place] [address], [place] [address] Mar, [facility] [address] [id number] [address] [place] [address], [place] [address] Feb, [facility] [address] [id number] [address] [place] [address], [place] [address] Feb, [facility] [address] [id number] [address] [place] [address], [place] [address] Feb, [facility] [address] [id number] [address] [place] [address], [place] [address] Feb, [facility] [address] [id number] [facility] [place] [address] Feb, 2013 [facility] [address] [id number] [facility] [place] [address] Feb, [facility] [address] [id number] [address] [place] [address], [place] [address] Feb, 2013 [facility] [address] [id number] [address] [place] [address], [place] [address] Feb, 2013 [facility] [address] [id number] [address] [place] [address], [place] [address] Feb, 2013 [facility] [address] [id number] [address] [place] [address], [place] [address] Feb, [facility] [address] [id number] [address] [place] [address], [place] [address] Feb, [facility] [address] [id number] [address] [place] [address], [place] [address] Feb, [facility] [address] [id number] [address] [place] [address], [place] [address] Jan, [facility] [address] [id number] [address] [place] [address], [place] [address] Jan, [facility] [address] [id number] [address] [place] [address], [place] [address] Jan, [facility] [address] [id number] [address] [place] [address], [place] [address] Jan, [facility] [address] [id number] [address] [place] [address], [place] [address] Jan, [facility] [address] [id number] [address] [place] [address], [place] [address] Jan, [facility] [address] [id number] [address] [place] [address], [place] [address] Jan, [facility] [address] [id number] [address] [place] [address], [place] [address] Jan, [facility] [address] [id number] [address] [place] [address], [place] [address] Jan, [facility] [address] [id number] [address] [place] [address], [place] [address] Jan, [facility] [address] [id number] [address] [place] [address], [place] [address] Jan, [facility] [address] [id number] [address] [place] [address], [place] [address] Jan, [facility] [address] [id number] [address] [place] [address], [place] [address] Jan, [facility] [address] [id number] [address] [place] [address], [place] [address] Jan, [facility] [address] [id number] [address] [place] [address], [place] [address] Jan, [facility] [address] [id number] [address] [place] [address], [place] [address] Jan, [facility] [address] [id number] [address] [place] [address], [place] [address] Jan, [facility] [address] [id number] [address] [place] [address], [place] [address] December, [facility] [address] [id number] [address] [place] [address], [place] [address] December, [facility] [address] [id number] [address] [place] [address], [place] [address] December, [facility] [address] [id number] [address] [place] [address], [place] [address] December, [facility] [address] [id number] [address] [place] [address], [place] [address] December, [facility] [address] [id number] [address] [place] [address], [place] [address] December, [facility] [address] [id number] [address] [place] [address], [place] [address] Nov, [facility] [address] [id number] [address] [place] [address], [place] [address] Nov, [facility] [address] [id number] [address] [place] [address], [place] [address] Nov, [facility] [address] [id number] [address] [place] [address], [place] [address] Nov, [facility] [address] [id number] [address] [place] [address], [place] [address] Nov, [facility] [address] [id number] [address] [place] [address], [place] [address] Nov, [facility] [address] [id number] [address] [place] [address], [place] [address] Nov, [facility] [address] [id number] [address] [place] [address], [place] [address] Nov, [facility] [address] [id number] [address] [place] [address], [place] [address] Nov, [facility] [address] [id number] [address] [place] [address], [place] [address] Nov, [facility] [address] [id number] [address] [place] [address], [place] [address] Nov, [facility] [address] [id number] [address] [place] [address], [place] [address] Nov, [facility] [address] [id number] [address] [place] [address], [place] [address] Nov, [facility] [address] [id number] [address] [place] [address], [place] [address] Nov, [facility] [address] [id number] [address] [place] [address], [place] [address] Nov, [facility] [address] [id number] [address] [place] [address], [place] [address] Nov, [facility] [address] [id number] [address] [place] [address], [place] [address] Oct, [facility] [address] [id number] [address] [place] [address], [place] [address] Oct, [facility] [address] [id number] [address] [place] [address], [place] [address] Oct, [facility] [address] [id number] [address] [place] [address], [place] [address] Oct, [facility] [address] [id number] [address] [place] [address], [place] [address] Oct, [facility] [address] [id number] [address] [place] [address], [place] [address] Oct, [facility] [address] [id number] [address] [place] [address], [place] [address] Oct, [facility] [address] [id number] [address] [place] [address], [place] [address] Oct, [facility] [address] [id number] [address] [place] [address], [place] [address] Sep, [facility] [address] [id number] [address] [place] [address], [place] [address] Sep, [facility] [address] [id number] [address] [place] [address], [place] [address] Sep, [facility] [address] [id number] [address] [place] [address], [place] [address] Sep, [facility] [address] [id number] [address] [place] [address], [place] [address] Sep, [facility] [address] [id number] [address] [place] [address], [place] [address] Sep, [facility] [address] [id number] [address] [place] [address], [place] [address] Aug, [facility] [address] [id number] [address] [place] [address], [place] [address] Aug, [facility] [address] [id number] [address] [place] [address], [place] [address] Aug, [facility] [address] [id number] [address] [place] [address], [place] [address] Aug, [facility] [address] [id number] [address] [place] [address], [place] [address] Aug, [facility] [address] [id number] [address] [place] [address], [place] [address] Aug, [facility] [address] [id number] [address] [place] [address], [place] [address] Aug, [facility] [address] [id number] [address] [place] [address], [place] [address] Aug, [facility] [address] [id number] [address] [place] [address], [place] [address] Jul, [facility] [address] [id number] [address] [place] [address], [place] [address] Jul, [facility] [address] [id number] [address] [place] [address], [place] [address] Jul, [facility] [address] [id number] [address] [place] [address], [place] [address] Jul, [facility] [address] [id number] [address] [place] [address], [place] [address] Jul, [facility] [address] [id number] [address] [place] [address], [place] [address] Jul, [facility] [address] [id number] [address] [place] [address], [place] [address] Jul, [facility] [address] [id number] [address] [place] [address], [place] [address] Jul, [facility] [address] [id number] [address] [place] [address], [place] [address] Jul, [facility] [address] [id number] [address] [place] [address], [place] [address] 14 Jun, 2013 [facility] [address] [id number] [address] [place] [address], [place] [address] 14 Jun, 2013 [facility] [address] [id number] [address] [place] [address], [place] [address] Jun, [facility] [address] [id number] [address] [place] [address], [place] [address] Jun, [facility] [address] [id number] [address] [place] [address], [place] [address] Jun, [facility] [address] [id number] [address] [place] [address], [place] [address] Jun, [facility] [address] [id number] [address] [place] [address], [place] [address] 31 May, 2013 [facility] [address] [id number] [address] [place] [address], [place] [address] 31 May, 2013 [facility] [address] [id number] [address] [place] [address], [place] [address] 17 May, 2013 [facility] [address] [id number] [address] [place] [address], [place] [address] 17 May, 2013 [facility] [address] [id number] [address] [place] [address], [place] [address] 14 May, 2013 [facility] [address] [id number] [address] [place] [address], [place] [address] 14 May, 2013 [facility] [address] [id number] [address] [place] [address], [place] [address] 10 May, 2013 [facility] [address] [id number] [address] [place] [address], [place] [address] 10 May, 2013 [facility] [address] [id number] [address] [place] [id number] 07 May, 2013 [facility] [address] [id number] [address] [place] [address] 20 Sep, 2012 [facility] [address] [id number] [address] [place] [address], [place] [address] 19 Sep, 2012 [facility] [address] [id number] [address] [place] [address], [place] [address] 12 Apr, 2012 [facility] [address] [id number] [address] [place] [address], [place] [address] 24 Sep, 2011 [facility] [address] [id number] [address] [place] [address], [place] [address] 21 Sep, 2011 [facility] [address] [id number] [address] [place] [address], [place] [address] 21 Apr, 2011 [facility] [address] [id number] [address] [place] [address], [place] [address] 14 Apr, 2011 [facility] [address] [id number] [address] [place] [address], [place] [address] 10 Apr, 2011 [facility] [address] [id number] [address] [place] [address], [place] [address] 06 Apr, 2011 [facility] [address] [id number] [address] [place] [address], [place] [address] 04 Apr, 2011 [facility] [address] [id number] [address] [place] [address], [place] [address] 31 Mar, 2012 [facility] [address] [id number] [address] [place] [address], [place] [address] 28 Mar, 2012 [facility] [address] [id number] [address] [place] [address], [place] [address] 27 Mar, 2012 [facility] [address] [id number] [address] [place] [address], [place] [address] 10 Mar, 2012 [facility] [address] [id number] [address] [place] [address], [place] [address] 08 Mar, 2012 [facility] [address] [id number] [address] [place] [address], [place] [address] 03 Mar, 2012 [facility] [address] [id number] [address] [place] [address], [place] [address] Feb, [facility] [address] [id number] [address] [place] [address], [place] [address] Feb, [facility] [address] [id number] [address] [place] [address], [place] [address] Feb, [facility] [address] [id number] [address] [place] [address], [place] [address] Jan, [facility] [address] [id number] [address] [place] [address], [place] [address] Jan, [facility] [address] [id number] [address] [place] [address], [place] [address] Jan, [facility] [address] [id number] [address] [place] [address], [place] [address] Jan, [facility] [address] [id number] [address] [place] [address], [place] [address] Jan, [facility] [address] [id number] [address] [place] [address], [place] [address] Jan, [facility] [address] [id number] [address] [place] [address], [place] [address] Jan, [facility] [address] [id number] [address] [place] [address], [place] [address] Jan, [facility] [address] [id number] [address] [place] [address], [place] [address] December, [facility] [address] [id number] [address] [place] [address], [place] [address] December, [facility] [address] [id number] [address] [place] [address], [place] [address] December, [facility] [address] [id number] [address] [place] [address], [place] [address] December, [facility] [address] [id number] [address] [place] [address], [place] [address] December, [facility] [address] [id number] [address] [place] [address], [place] [address] December, [facility] [address] [id number] [address] [place] [address], [place] [address] 13 Nov, 2011 [facility] [address] [id number] [address] [place] [address], [place] [address] 13 Nov, 2011 [facility] [address] [id number] [address] [place] [address], [place] [address] Nov, [facility] [address] [id number] [address] [place] [address], [place] [address] Nov, [facility] [address] [id number] [address] [place] [address], [place] [address] Nov, [facility] [address] [id number] [address] [place] [address], [place] [address] Oct, [facility] [address] [id number] [address] [place] [address], [place] [address] 17 Sep, 2011 [facility] [address] [id number] [address] [place] [address], [place] [address] Aug, [facility] [address] [id number] [address] [place] [address], [place] [address] Aug, [facility] [address] [id number] [address] [place] [address], [place] [address] Aug, [facility] [address] [id number] [address] [place] [address], [place] [address] Aug, [facility] [address] [id number] [address] [place] [address], [place] [address] Aug, [facility] [address] [id number] [address] [place] [address], [place] [address] Jul, [facility] [address] [id number] [address] [place] [address], [place] [address] Jul, [facility] [address] [id number] [address] [place] [address], [place] [address] Jun, [facility] [address] [id number] [address] [place] [address], [place] [address] Jun, [facility] [address] [id number] [address] [place] [address], [place] [address] Jun, [facility] [address] [id number] [address] [place] [address], [place] [address] May, [facility] [address] [id number] [address] [place] [address], [place] [address] May, [facility] [address] [id number] [address] [place] [address], [place] [address] 16 Oct, 2010 [facility] [address] [id number] [address] [place] [address], [place] [address] Oct, [facility] [address] [id number] [address] [place] [address], [place] [address] 29 Jul, 2010 [facility] [address] [id number] [address] [place] [address], [place] [address] 08 Jul, 2010 [facility] [address] [id number] [address] [place] [address], [place] [address] Jul, [facility] [address] [id number] [address] [place] [address], [place] [address] Jul, [facility] [address] [id number] [address] [place] [address], [place] [address] Jul, [facility] [address] [id number] [address] [place] [address], [place] [address] Jun, [facility] [address] [id number] [address] [place] [address], [place] [address] Jun, [facility] [address] [id number] [address] [place] [address], [place] [address] Jun, [facility] [address] [id number] [address] [place] [address], [place] [address] May, [facility] [address] [facility] [id number] [address] [place] [address] Mar, IMMUNIZATIONS Vaccine Route Administration Date Status FLU Vaccine (History) Unknown Jun 18, 2014 Administer ed SOCIAL HISTORY Never Assessed REASON FOR VISIT [...]
--- OUTSIDE RECORDS SUMMARY | 2019-11-28 22:50 | XMS REPORT ---
Author Author Caren LYLE Organization [facility] Address [address] [place] [address] Care Team Providers Care Rn Hedis Name Role Phone LAURIE LYLE Unavailable PROBLEMS Type Condition ICD9-CM Code [id number] Code Onset Dates Condition S tatus SNOMED Code Problem COPD (chronic obstructive pulmonary disease) J44.9 Active 21798292 Problem Diabetes E11.9 Active 65838113 Problem Diabetic neuropathy E11.40 Active 853064322 Problem Arthritis M19.90 Active 3054322 ALLERGIES No Information ENCOUNTERS Encounter Location Date Diagnosis [facility] [address] [facility] [id number] [address] [place] [address] December, [facility] [address] [id number] [address] [place] [address] Aug, Arthritis M19.90 [facility] [address] [facility] [id number] [address] [place] [address] Jul, [facility] [address] [facility] [id number] [address] [place] [address] Jul, [facility] [address] [facility] [id number] [address] [place] [address] Jul, [facility] [address] [id number] [address] [place] [address] Jul, [facility] [address] [facility] [id number] [address] [place] [address] Jul, Diabetes E11.9 ; Diabetic ne uropathy E11.40 ; Arthritis M19.90 and COPD (chronic obstructive pulmonary disease) J44.9 [facility] [address] [facility] [id number] [address] [place] [address] Jul, [facility] [address] [id number] [address] [place] [address], [place] [address] 23 Jun, 2015 [facility] [address] [id number] [address] [place] [address], [place] [address] 23 Jun, 2015 [facility] [address] [id number] [address] [place] [address], [place] [address] 17 Jun, 2014 [facility] [address] [id number] [address] [place] [address], [place] [address] 10 Jun, 2014 [facility] [address] [id number] [address] [place] [address], [place] [address] 15 May, 2015 [facility] [address] [id number] [address] [place] [address], [place] [address] 13 May, 2015 [facility] [address] [id number] [address] [place] [address], [place] [address] 07 May, 2015 [facility] [address] [id number] [address] [place] [address], [place] [address] 22 Sep, 2014 [facility] [address] [id number] [address] [place] [address], [place] [address] 21 Sep, 2014 [facility] [address] [id number] [address] [place] [address], [place] [address] 21 Sep, 2014 [facility] [address] [id number] [address] [place] [address], [place] [address] 15 Sep, 2014 [facility] [address] [id number] [address] [place] [address], [place] [address] 11 Sep, 2014 [facility] [address] [id number] [address] [place] [address], [place] [address] 09 Sep, 2014 [facility] [address] [id number] [address] [place] [address], [place] [address] 08 Sep, 2014 [facility] [address] [id number] [address] [place] [address], [place] [address] 03 Sep, 2014 [facility] [address] [id number] [address] [place] [address] [address] Apr, [facility] [address] [facility] [id number] [address] [place] [address] Mar, [facility] [address] [facility] [id number] [address] [place] [address] Mar, [facility] [address] [facility] [id number] [address] [place] [address] Mar, [facility] [address] [facility] [id number] [address] [place] [address] Mar, [facility] [address] [facility] [id number] [address] [place] [address] Mar, [facility] [address] [facility] [id number] [address] [place] [address] Mar, Diabetes mellitus 250.00 ; C OPD (chronic obstructive pulmonary disease) 496 ; Anxiety 300.00 and Arthritis 716.90 [facility] [address] [facility] [id number] [address] [place] [address] Feb, [facility] [address] [facility] [id number] [address] [place] [address] Feb, [facility] [address] [facility] [id number] [address] [place] [address] Feb, [facility] [address] [facility] [id number] [address] [place] [address] Feb, [facility] [address] [facility] [id number] [address] [place] [address] Jan, Seborrheic keratosis 702.19 and Nevus 216.9 [facility] [address] [facility] [id number] [address] [place] [address] Jan, [facility] [address] [facility] [id number] [address] [place] [address] Jan, Routine gynecological examin ation V72.31 ; Breast cancer screening V76.10 ; Hot flashes 627.2 ; Atypical nevi 216.9 and Constipation 564.00 [facility] [address] [id number] [address] [place] [address], [place] [address] Jan, [facility] [address] [id number] [address] [place] [address], [place] [address] December, [facility] [address] [id number] [address] [place] [address], [place] [address] December, [facility] [address] [id number] [address] [place] [address], [place] [address] Nov, [facility] [address] [id number] [address] [place] [address], [place] [address] Nov, [facility] [address] [id number] [address] [place] [address], [place] [address] Oct, [facility] [address] [id number] [address] [place] [address], [place] [address] 23 Oct, 2014 [facility] [address] [id number] [address] [place] [address], [place] [address] 18 Oct, 2014 [facility] [address] [id number] [address] [place] [address], [place] [address] 18 Oct, 2014 [facility] [address] [id number] [address] [place] [address], [place] [address] 17 Oct, 2014 [facility] [address] [id number] [address] [place] [address], [place] [address] 17 Oct, 2014 [facility] [address] [id number] [address] [place] [address] 16 Oct, 2014 [facility] [address] [id number] [address] [place] [address], [place] [address] 16 Oct, 2014 [facility] [address] [id number] [address] [place] [address], [place] [address] 11 Oct, 2014 [facility] [address] [id number] [address] [place] [address], [place] [address] 11 Oct, 2014 [facility] [address] [id number] [address] [place] [address], [place] [address] Sep, 2014 [facility] [address] [id number] [address] [place] [address], [place] [address] Sep, 2014 [facility] [address] [id number] [address] [place] [address], [place] [address] 19 Sep, 2014 [facility] [address] [id number] [address] [place] [address], [place] [address] 18 Sep, 2014 [facility] [address] [id number] [address] [place] [address], [place] [address] Sep, 2014 [facility] [address] [id number] [address] [place] [address], [place] [address] Sep, 2014 [facility] [address] [id number] [address] [place] [address], [place] [address] Sep, 2014 [facility] [address] [id number] [address] [place] [address], [place] [address] Aug, [facility] [address] [id number] [address] [place] [address], [place] [address] Aug, [facility] [address] [id number] [address] [place] [address], [place] [address] Aug, [facility] [address] [id number] [address] [place] [address], [place] [address] Aug, [facility] [address] [id number] [address] [place] [address], [place] [address] Aug, [facility] [address] [id number] [address] [place] [address], [place] [address] Aug, [facility] [address] [id number] [address] [place] [address], [place] [address] Jul, [facility] [address] [id number] [address] [place] [address], [place] [address] Jul, [facility] [address] [id number] [address] [place] [address], [place] [address] Jul, [facility] [address] [id number] [address] [place] [address], [place] [address] Jul, [facility] [address] [id number] [address] [place] [address], [place] [address] Jul, [facility] [address] [id number] [address] [place] [address], [place] [address] Jun, [facility] [address] [id number] [address] [place] [address], [place] [address] Jun, [facility] [address] [id number] [address] [place] [address], [place] [address] Jun, [facility] [address] [id number] [address] [place] [address], [place] [address] Jun, [facility] [address] [id number] [address] [place] [address], [place] [address] Jun, [facility] [address] [id number] [address] [place] [address], [place] [address] Jun, [facility] [address] [id number] [address] [place] [address], [place] [address] May, [facility] [address] [id number] [address] [place] [address], [place] [address] May, [facility] [address] [id number] [address] [place] [address], [place] [address] May, [facility] [address] [id number] [address] [place] [address] May, [facility] [address] [id number] [address] [place] [address], [place] [address] May, [facility] [address] [id number] [address] [place] [address], [place] [address] May, [facility] [address] [id number] [address] [place] [address], [place] [address] May, [facility] [address] [id number] [address] [place] [address], [place] [address] May, [facility] [address] [id number] [address] [place] [address], [place] [address] May, [facility] [address] [id number] [address] [place] [address], [place] [address] Apr, [facility] [address] [id number] [address] [place] [address], [place] [address] Apr, [facility] [address] [id number] [address] [place] [address], [place] [address] Apr, [facility] [address] [id number] [address] [place] [address], [place] [address] Apr, [facility] [address] [id number] [address] [place] [address], [place] [address] Mar, [facility] [address] [id number] [address] [place] [address], [place] [address] Mar, [facility] [address] [id number] [address] [place] [address], [place] [address] Mar, [facility] [address] [id number] [address] [place] [address], [place] [address] Mar, [facility] [address] [id number] [address] [place] [address], [place] [address] Mar, [facility] [address] [id number] [address] [place] [address], [place] [address] Mar, [facility] [address] [id number] [address] [place] [address], [place] [address] Feb, [facility] [address] [id number] [address] [place] [address], [place] [address] Feb, [facility] [address] [id number] [address] [place] [address], [place] [address] Feb, [facility] [address] [id number] [address] [place] [address], [place] [address] Feb, [facility] [address] [id number] [facility] [place] [address] Feb, 2013 [facility] [address] [id number] [facility] [place] [address] Feb, [facility] [address] [id number] [address] [place] [address], [place] [address] Feb, 2013 [facility] [address] [id number] [address] [place] [address], [place] [address] Feb, 2013 [facility] [address] [id number] [address] [place] [address], [place] [address] Feb, 2013 [facility] [address] [id number] [address] [place] [address], [place] [address] Feb, [facility] [address] [id number] [address] [place] [address], [place] [address] Feb, [facility] [address] [id number] [address] [place] [address], [place] [address] Feb, [facility] [address] [id number] [address] [place] [address], [place] [address] Jan, [facility] [address] [id number] [address] [place] [address], [place] [address] Jan, [facility] [address] [id number] [address] [place] [address], [place] [address] Jan, [facility] [address] [id number] [address] [place] [address], [place] [address] Jan, [facility] [address] [id number] [address] [place] [address], [place] [address] Jan, [facility] [address] [id number] [address] [place] [address], [place] [address] Jan, [facility] [address] [id number] [address] [place] [address], [place] [address] Jan, [facility] [address] [id number] [address] [place] [address], [place] [address] Jan, [facility] [address] [id number] [address] [place] [address], [place] [address] Jan, [facility] [address] [id number] [address] [place] [address], [place] [address] Jan, [facility] [address] [id number] [address] [place] [address], [place] [address] Jan, [facility] [address] [id number] [address] [place] [address], [place] [address] Jan, [facility] [address] [id number] [address] [place] [address], [place] [address] Jan, [facility] [address] [id number] [address] [place] [address], [place] [address] Jan, [facility] [address] [id number] [address] [place] [address], [place] [address] Jan, [facility] [address] [id number] [address] [place] [address], [place] [address] Jan, [facility] [address] [id number] [address] [place] [address], [place] [address] Jan, [facility] [address] [id number] [address] [place] [address], [place] [address] December, [facility] [address] [id number] [address] [place] [address], [place] [address] December, [facility] [address] [id number] [address] [place] [address], [place] [address] December, [facility] [address] [id number] [address] [place] [address], [place] [address] December, [facility] [address] [id number] [address] [place] [address], [place] [address] December, [facility] [address] [id number] [address] [place] [address], [place] [address] December, [facility] [address] [id number] [address] [place] [address], [place] [address] Nov, [facility] [address] [id number] [address] [place] [address], [place] [address] Nov, [facility] [address] [id number] [address] [place] [address], [place] [address] Nov, [facility] [address] [id number] [address] [place] [address], [place] [address] Nov, [facility] [address] [id number] [address] [place] [address], [place] [address] Nov, [facility] [address] [id number] [address] [place] [address], [place] [address] Nov, [facility] [address] [id number] [address] [place] [address], [place] [address] Nov, [facility] [address] [id number] [address] [place] [address], [place] [address] Nov, [facility] [address] [id number] [address] [place] [address], [place] [address] Nov, [facility] [address] [id number] [address] [place] [address], [place] [address] Nov, [facility] [address] [id number] [address] [place] [address], [place] [address] Nov, [facility] [address] [id number] [address] [place] [address], [place] [address] Nov, [facility] [address] [id number] [address] [place] [address], [place] [address] Nov, [facility] [address] [id number] [address] [place] [address], [place] [address] Nov, [facility] [address] [id number] [address] [place] [address], [place] [address] Nov, [facility] [address] [id number] [address] [place] [address], [place] [address] Nov, [facility] [address] [id number] [address] [place] [address], [place] [address] Oct, [facility] [address] [id number] [address] [place] [address], [place] [address] Oct, [facility] [address] [id number] [address] [place] [address], [place] [address] Oct, [facility] [address] [id number] [address] [place] [address], [place] [address] Oct, [facility] [address] [id number] [address] [place] [address], [place] [address] Oct, [facility] [address] [id number] [address] [place] [address], [place] [address] Oct, [facility] [address] [id number] [address] [place] [address], [place] [address] Oct, [facility] [address] [id number] [address] [place] [address], [place] [address] Oct, [facility] [address] [id number] [address] [place] [address], [place] [address] Sep, [facility] [address] [id number] [address] [place] [address], [place] [address] Sep, [facility] [address] [id number] [address] [place] [address], [place] [address] Sep, [facility] [address] [id number] [address] [place] [address], [place] [address] Sep, [facility] [address] [id number] [address] [place] [address], [place] [address] Sep, [facility] [address] [id number] [address] [place] [address], [place] [address] Sep, [facility] [address] [id number] [address] [place] [address], [place] [address] Aug, [facility] [address] [id number] [address] [place] [address], [place] [id number] Aug, [facility] [address] [id number] [address] [place] [address], [place] [address] Aug, [facility] [address] [id number] [address] [place] [address], [place] [address] Aug, [facility] [address] [id number] [address] [place] [address], [place] [address] Aug, [facility] [address] [id number] [address] [place] [address], [place] [address] Aug, [facility] [address] [id number] [address] [place] [address], [place] [address] Aug, [facility] [address] [id number] [address] [place] [address], [place] [address] Aug, [facility] [address] [id number] [address] [place] [address], [place] [address] Jul, [facility] [address] [id number] [address] [place] [address], [place] [address] Jul, [facility] [address] [id number] [address] [place] [address], [place] [address] Jul, [facility] [address] [id number] [address] [place] [address], [place] [address] Jul, [facility] [address] [id number] [address] [place] [address], [place] [address] Jul, [facility] [address] [id number] [address] [place] [address], [place] [address] Jul, [facility] [address] [id number] [address] [place] [address], [place] [address] Jul, [facility] [address] [id number] [address] [place] [address], [place] [address] Jul, [facility] [address] [id number] [address] [place] [address], [place] [address] Jul, [facility] [address] [id number] [address] [place] [address], [place] [address] 14 Jun, 2013 [facility] [address] [id number] [address] [place] [address], [place] [id number] 14 Jun, 2013 [facility] [address] [id number] [address] [place] [address], [place] [address] Jun, [facility] [address] [id number] [address] [place] [address], [place] [address] Jun, [facility] [address] [id number] [address] [place] [address], [place] [address] Jun, [facility] [address] [id number] [address] [place] [address], [place] [address] Jun, [facility] [address] [id number] [address] [place] [address], [place] [address] 31 May, 2013 [facility] [address] [id number] [address] [place] [address], [place] [address] 31 May, 2013 [facility] [address] [id number] [address] [place] [address], [place] [address] 17 May, 2013 [facility] [address] [id number] [address] [place] [address], [place] [address] 17 May, 2013 [facility] [address] [id number] [address] [place] [address], [place] [address] 14 May, 2013 [facility] [address] [id number] [address] [place] [address], [place] [address] 14 May, 2013 [facility] [address] [id number] [address] [place] [address], [place] [address] 10 May, 2013 [facility] [address] [id number] [address] [place] [address], [place] [address] 10 May, 2013 [facility] [address] [id number] [address] [place], [place] [id number] 07 May, 2013 [facility] [address] [id number] [address] [place] [id number] 20 Sep, 2012 [facility] [address] [id number] [address] [place] [address], [place] [id number] 19 Sep, 2012 [facility] [address] [id number] [address] [place] [address], [place] [id number] 12 Apr, 2012 [facility] [address] [id number] [address] [place] [address], [place] [address] 24 Sep, 2011 [facility] [address] [id number] [address] [place] [address], [place] [address] 21 Sep, 2011 [facility] [address] [id number] [address] [place] [address], [place] [id number] 21 Apr, 2011 [facility] [address] [id number] [address] [place] [address], [place] [id number] 14 Apr, 2011 [facility] [address] [id number] [address] [place] [address], [place] [id number] 10 Apr, 2011 [facility] [address] [id number] [address] [place] [address], [place] [id number] 06 Apr, 2011 [facility] [address] [id number] [address] [place] [address], [place] [id number] 04 Apr, 2011 [facility] [address] [id number] [address] [place] [address], [place] [id number] 31 Mar, 2012 [facility] [address] [id number] [address] [place] [address], [place] [id number] 28 Mar, 2012 [facility] [address] [id number] [address] [place] [address], [place] [id number] 27 Mar, 2012 [facility] [address] [id number] [address] [place] [address], [place] [id number] 10 Mar, 2012 [facility] [address] [id number] [address] [place] [address], [place] [id number] 08 Mar, 2012 [facility] [address] [id number] [address] [place] [address], [place] [id number] 03 Mar, 2012 [facility] [address] [id number] [address] [place] [address], [place] [address] Feb, [facility] [address] [id number] [address] [place] [address], [place] [id number] Feb, [facility] [address] [id number] [address] [place] [address], [place] [id number] Feb, [facility] [address] [id number] [address] [place] [address], [place] [address] Jan, [facility] [address] [id number] [address] [place] [address], [place] [address] Jan, [facility] [address] [id number] [address] [place] [address], [place] [address] Jan, [facility] [address] [id number] [address] [place] [address], [place] [id number] Jan, [facility] [address] [id number] [address] [place] [address], [place] [address] Jan, [facility] [address] [id number] [address] [place] [address], [place] [address] Jan, [facility] [address] [id number] [address] [place] [address], [place] [address] Jan, [facility] [address] [id number] [address] [place] [address], [place] [address] Jan, [facility] [address] [id number] [address] [place] [address], [place] [id number] December, [facility] [address] [id number] [address] [place] [address], [place] [id number] December, [facility] [address] [id number] [address] [place] [address], [place] [address] December, [facility] [address] [id number] [address] [place] [address], [place] [address] December, [facility] [address] [id number] [address] [place] [address], [place] [address] December, [facility] [address] [id number] [address] [place] [address], [place] [address] December, [facility] [address] [id number] [address] [place] [address], [place] [id number] 13 Nov, 2011 [facility] [address] [id number] [address] [place] [address], [place] [address] 13 Nov, 2011 [facility] [address] [id number] [address] [place] [address], [place] [address] Nov, [facility] [address] [id number] [address] [place] [address], [place] [address] Nov, [facility] [address] [id number] [address] [place] [address], [place] [address] Nov, [facility] [address] [id number] [address] [place] [address], [place] [address] Oct, [facility] [address] [id number] [address] [place] [address], [place] [id number] 17 Sep, 2011 [facility] [address] [id number] [address] [place] [address], [place] [address] Aug, [facility] [address] [id number] [address] [place] [address], [place] [address] Aug, [facility] [address] [id number] [address] [place] [address], [place] [address] Aug, [facility] [address] [id number] [address] [place] [address], [place] [address] Aug, [facility] [address] [id number] [address] [place] [address], [place] [address] Aug, [facility] [address] [id number] [address] [place] [address], [place] [address] Jul, [facility] [address] [id number] [address] [place] [address], [place] [address] Jul, [facility] [address] [id number] [address] [place] [address], [place] [address] Jun, [facility] [address] [id number] [address] [place] [address], [place] [address] Jun, [facility] [address] [id number] [address] [place] [address], [place] [address] Jun, [facility] [address] [id number] [address] [place] [address], [place] [address] May, [facility] [address] [id number] [address] [place] [address], [place] [address] May, [facility] [address] [id number] [address] [place] [address], [place] [id number] 16 Oct, 2010 [facility] [address] [id number] [address] [place] [address], [place] [id number] Oct, [facility] [address] [id number] [address] [place] [address], [place] [id number] 29 Jul, 2010 [facility] [address] [id number] [address] [place] [address], [place] [id number] 08 Jul, 2010 [facility] [address] [id number] [address] [place] [address], [place] [address] Jul, [facility] [address] [id number] [address] [place] [address], [place] [address] Jul, [facility] [address] [id number] [address] [place] [address], [place] [address] Jul, [facility] [address] [id number] [address] [place] [address], [place] [address] Jun, [facility] [address] [id number] [address] [place] [address], [place] [address] Jun, [facility] [address] [id number] [address] [place] [address], [place] [address] Jun, [facility] [address] [id number] [address] [place] [address], [place] [address] May, [facility] [address] [facility] [id number] [address] [place] [address] 16 Mar, 2010 IMMUNIZATIONS No Known Immunizations [...]
--- OUTSIDE RECORDS SUMMARY | 2019-11-28 22:50 | XMS REPORT ---
Author Author Caren LYLE Organization [facility] Address [address] [place] [address] Care Team Providers Care Missile Facilities Repairer Name Role Phone LAURIE LYLE Unavailable PROBLEMS Type Condition ICD9-CM Code UNZ16-FI Code Onset Dates Condition S tatus SNOMED Code Problem COPD (chronic obstructive pulmonary disease) J44.9 Active 16864676 Problem Diabetes E11.9 Active 87239886 Problem Diabetic neuropathy E11.40 Active 221122192 Problem Arthritis M19.90 Active 5988116 ALLERGIES No Information ENCOUNTERS Encounter Location Date Diagnosis [facility] [address] [facility] [id number] [address] [place] [id number] December, [facility] [address] [id number] [address] [place] [id number] Aug, Arthritis M19.90 [facility] [address] [facility] [id number] [address] [place] [id number] Jul, [facility] [address] [facility] [id number] [address] [place] [id number] Jul, [facility] [address] [facility] [id number] [address] [place] [id number] Jul, [facility] [address] [id number] [address] [place] [id number] Jul, [facility] [address] [facility] [id number] [address] [place] [id number] Jul, Diabetes E11.9 ; Diabetic ne uropathy E11.40 ; Arthritis M19.90 and COPD (chronic obstructive pulmonary disease) J44.9 [facility] [address] [facility] [id number] [address] [place] [id number] Jul, [facility] [address] [id number] [address] [place] [address], [place] [id number] 23 Jun, 2015 [facility] [address] [id number] [address] [place] [address], [place] [address] 23 Jun, 2015 [facility] [address] [id number] [address] [place] [address], [place] [id number] 17 Jun, 2014 [facility] [address] [id number] [address] [place] [address], [place] [id number] 10 Jun, 2014 [facility] [address] [id number] [address] [place] [address], [place] [address] 15 May, 2015 [facility] [address] [id number] [address] [place] [address], [place] [id number] 13 May, 2015 [facility] [address] [id number] [address] [place] [address], [place] [id number] 07 May, 2015 [facility] [address] [id number] [address] [place] [address], [place] [id number] 22 Sep, 2014 [facility] [address] [id number] [address] [place] [address], [place] [id number] 21 Sep, 2014 [facility] [address] [id number] [address] [place] [address], [place] [id number] 21 Sep, 2014 [facility] [address] [id number] [address] [place] [address], [place] [id number] 15 Sep, 2014 [facility] [address] [id number] [address] [place] [address], [place] [address] 11 Sep, 2014 [facility] [address] [id number] [address] [place] [address], [place] [id number] 09 Sep, 2014 [facility] [address] [id number] [address] [place] [address], [place] [id number] 08 Sep, 2014 [facility] [address] [id number] [address] [place] [address], [place] [address] 03 Sep, 2014 [facility] [address] [id number] [address] [place] [address] [address] Apr, [facility] [address] [facility] [id number] [address] [place] [id number] Mar, [facility] [address] [facility] [id number] [address] [place] [id number] Mar, [facility] [address] [facility] [id number] [address] [place] [id number] Mar, [facility] [address] [facility] [id number] [address] [place] [id number] Mar, [facility] [address] [facility] [id number] [address] [place] [id number] Mar, [facility] [address] [facility] [id number] [address] [place] [id number] Mar, Diabetes mellitus 250.00 ; C OPD (chronic obstructive pulmonary disease) 496 ; Anxiety 300.00 and Arthritis 716.90 [facility] [address] [facility] [id number] [address] [place] [id number] Feb, [facility] [address] [facility] [id number] [address] [place] [id number] Feb, [facility] [address] [facility] [id number] [address] [place] [id number] Feb, [facility] [address] [facility] [id number] [address] [place] [id number] Feb, [facility] [address] [facility] [id number] [address] [place] [id number] Jan, Seborrheic keratosis 702.19 and Nevus 216.9 [facility] [address] [facility] [id number] [address] [place] [id number] Jan, [facility] [address] [facility] [id number] [address] [place] [id number] Jan, Routine gynecological examin ation V72.31 ; Breast cancer screening V76.10 ; Hot flashes 627.2 ; Atypical nevi 216.9 and Constipation 564.00 [facility] [address] [id number] [address] [place] [address], [place] [address] Jan, [facility] [address] [id number] [address] [place] [address], [place] [address] December, [facility] [address] [id number] [address] [place] [address], [place] [address] December, [facility] [address] [id number] [address] [place] [address], [place] [address] Nov, [facility] [address] [id number] [address] [place] [address], [place] [address] Nov, [facility] [address] [id number] [address] [place] [address], [place] [address] Oct, [facility] [address] [id number] [address] [place] [address], [place] [address] 23 Oct, 2014 [facility] [address] [id number] [address] [place] [address], [place] [address] 18 Oct, 2014 [facility] [address] [id number] [address] [place] [address], [place] [address] 18 Oct, 2014 [facility] [address] [id number] [address] [place] [address], [place] [address] 17 Oct, 2014 [facility] [address] [id number] [address] [place] [address], [place] [address] 17 Oct, 2014 [facility] [address] [id number] [address] [place] [id number] 16 Oct, 2014 [facility] [address] [id number] [address] [place] [address], [place] [address] 16 Oct, 2014 [facility] [address] [id number] [address] [place] [address], [place] [address] 11 Oct, 2014 [facility] [address] [id number] [address] [place] [address], [place] [address] 11 Oct, 2014 [facility] [address] [id number] [address] [place] [address], [place] [address] Sep, 2014 [facility] [address] [id number] [address] [place] [address], [place] [address] Sep, 2014 [facility] [address] [id number] [address] [place] [address], [place] [id number] 19 Sep, 2014 [facility] [address] [id number] [address] [place] [address], [place] [id number] 18 Sep, 2014 [facility] [address] [id number] [address] [place] [address], [place] [address] Sep, 2014 [facility] [address] [id number] [address] [place] [address], [place] [id number] Sep, 2014 [facility] [address] [id number] [address] [place] [address], [place] [address] Sep, 2014 [facility] [address] [id number] [address] [place] [address], [place] [address] Aug, [facility] [address] [id number] [address] [place] [address], [place] [address] Aug, [facility] [address] [id number] [address] [place] [address], [place] [address] Aug, [facility] [address] [id number] [address] [place] [address], [place] [address] Aug, [facility] [address] [id number] [address] [place] [address], [place] [address] Aug, [facility] [address] [id number] [address] [place] [address], [place] [id number] Aug, [facility] [address] [id number] [address] [place] [address], [place] [address] Jul, [facility] [address] [id number] [address] [place] [address], [place] [address] Jul, [facility] [address] [id number] [address] [place] [address], [place] [address] Jul, [facility] [address] [id number] [address] [place] [address], [place] [address] Jul, [facility] [address] [id number] [address] [place] [address], [place] [address] Jul, [facility] [address] [id number] [address] [place] [address], [place] [address] Jun, [facility] [address] [id number] [address] [place] [address], [place] [address] Jun, [facility] [address] [id number] [address] [place] [address], [place] [id number] Jun, [facility] [address] [id number] [address] [place] [address], [place] [address] Jun, [facility] [address] [id number] [address] [place] [address], [place] [address] Jun, [facility] [address] [id number] [address] [place] [address], [place] [address] Jun, [facility] [address] [id number] [address] [place] [address], [place] [address] May, [facility] [address] [id number] [address] [place] [address], [place] [address] May, [facility] [address] [id number] [address] [place] [address], [place] [address] May, [facility] [address] [id number] [address] [place] [id number] May, [facility] [address] [id number] [address] [place] [address], [place] [address] May, [facility] [address] [id number] [address] [place] [address], [place] [address] May, [facility] [address] [id number] [address] [place] [address], [place] [id number] May, [facility] [address] [id number] [address] [place] [address], [place] [id number] May, [facility] [address] [id number] [address] [place] [address], [place] [address] May, [facility] [address] [id number] [address] [place] [address], [place] [address] Apr, [facility] [address] [id number] [address] [place] [address], [place] [address] Apr, [facility] [address] [id number] [address] [place] [address], [place] [address] Apr, [facility] [address] [id number] [address] [place] [address], [place] [address] Apr, [facility] [address] [id number] [address] [place] [address], [place] [address] Mar, [facility] [address] [id number] [address] [place] [address], [place] [address] Mar, [facility] [address] [id number] [address] [place] [address], [place] [address] Mar, [facility] [address] [id number] [address] [place] [address], [place] [address] Mar, [facility] [address] [id number] [address] [place] [address], [place] [address] Mar, [facility] [address] [id number] [address] [place] [address], [place] [address] Mar, [facility] [address] [id number] [address] [place] [address], [place] [address] Feb, [facility] [address] [id number] [address] [place] [address], [place] [address] Feb, [facility] [address] [id number] [address] [place] [address], [place] [address] Feb, [facility] [address] [id number] [address] [place] [address], [place] [address] Feb, [facility] [address] [id number] [facility] [address] Feb, 2013 [facility] [address] [id number] [facility] [address] Feb, [facility] [address] [id number] [address] [place] [address], [place] [address] Feb, 2013 [facility] [address] [id number] [address] [place] [address], [place] [address] Feb, 2013 [facility] [address] [id number] [address] [place] [address], [place] [address] Feb, 2013 [facility] [address] [id number] [address] [place] [address], [place] [address] Feb, [facility] [address] [id number] [address] [place] [address], [place] [address] Feb, [facility] [address] [id number] [address] [place] [address], [place] [address] Feb, [facility] [address] [id number] [address] [place] [address], [place] [address] Jan, [facility] [address] [id number] [address] [place] [address], [place] [address] Jan, [facility] [address] [id number] [address] [place] [address], [place] [address] Jan, [facility] [address] [id number] [address] [place] [address], [place] [address] Jan, [facility] [address] [id number] [address] [place] [address], [place] [address] Jan, [facility] [address] [id number] [address] [place] [address], [place] [address] Jan, [facility] [address] [id number] [address] [place] [address], [place] [address] Jan, [facility] [address] [id number] [address] [place] [address], [place] [address] Jan, [facility] [address] [id number] [address] [place] [address], [place] [id number] Jan, [facility] [address] [id number] [address] [place] [address], [place] [address] Jan, [facility] [address] [id number] [address] [place] [address], [place] [address] Jan, [facility] [address] [id number] [address] [place] [address], [place] [address] Jan, [facility] [address] [id number] [address] [place] [address], [place] [address] Jan, [facility] [address] [id number] [address] [place] [address], [place] [address] Jan, [facility] [address] [id number] [address] [place] [address], [place] [address] Jan, [facility] [address] [id number] [address] [place] [address], [place] [address] Jan, [facility] [address] [id number] [address] [place] [address], [place] [address] Jan, [facility] [address] [id number] [address] [place] [address], [place] [address] December, [facility] [address] [id number] [address] [place] [address], [place] [address] December, [facility] [address] [id number] [address] [place] [address], [place] [address] December, [facility] [address] [id number] [address] [place] [address], [place] [address] December, [facility] [address] [id number] [address] [place] [address], [place] [address] December, [facility] [address] [id number] [address] [place] [address], [place] [address] December, [facility] [address] [id number] [address] [place] [address], [place] [address] Nov, [facility] [address] [id number] [address] [place] [address], [place] [address] Nov, [facility] [address] [id number] [address] [place] [address], [place] [address] Nov, [facility] [address] [id number] [address] [place] [address], [place] [address] Nov, [facility] [address] [id number] [address] [place] [address], [place] [address] Nov, [facility] [address] [id number] [address] [place] [address], [place] [address] Nov, [facility] [address] [id number] [address] [place] [address], [place] [address] Nov, [facility] [address] [id number] [address] [place] [address], [place] [id number] Nov, [facility] [address] [id number] [address] [place] [address], [place] [address] Nov, [facility] [address] [id number] [address] [place] [address], [place] [address] Nov, [facility] [address] [id number] [address] [place] [address], [place] [address] Nov, [facility] [address] [id number] [address] [place] [address], [place] [address] Nov, [facility] [address] [id number] [address] [place] [address], [place] [address] Nov, [facility] [address] [id number] [address] [place] [address], [place] [address] Nov, [facility] [address] [id number] [address] [place] [address], [place] [address] Nov, [facility] [address] [id number] [address] [place] [address], [place] [address] Nov, [facility] [address] [id number] [address] [place] [address], [place] [address] Oct, [facility] [address] [id number] [address] [place] [address], [place] [address] Oct, [facility] [address] [id number] [address] [place] [address], [place] [address] Oct, [facility] [address] [id number] [address] [place] [address], [place] [id number] Oct, [facility] [address] [id number] [address] [place] [address], [place] [id number] Oct, [facility] [address] [id number] [address] [place] [address], [place] [id number] Oct, [facility] [address] [id number] [address] [place] [address], [place] [id number] Oct, [facility] [address] [id number] [address] [place] [address], [place] [id number] Oct, [facility] [address] [id number] [address] [place] [address], [place] [id number] Sep, [facility] [address] [id number] [address] [place] [address], [place] [id number] Sep, [facility] [address] [id number] [address] [place] [address], [place] [id number] Sep, [facility] [address] [id number] [address] [place] [address], [place] [id number] Sep, [facility] [address] [id number] [address] [place] [address], [place] [id number] Sep, [facility] [address] [id number] [address] [place] [address], [place] [id number] Sep, [facility] [address] [id number] [address] [place] [address], [place] [id number] Aug, [facility] [address] [id number] [address] [place] [address], [place] [id number] Aug, [facility] [address] [id number] [address] [place] [address], [place] [id number] Aug, [facility] [address] [id number] [address] [place] [address], [place] [id number] Aug, [facility] [address] [id number] [address] [place] [address], [place] [id number] Aug, [facility] [address] [id number] [address] [place] [address], [place] [id number] Aug, [facility] [address] [id number] [address] [place] [address], [place] [id number] Aug, [facility] [address] [id number] [address] [place] [address], [place] [id number] Aug, [facility] [address] [id number] [address] [place] [address], [place] [id number] Jul, [facility] [address] [id number] [address] [place] [address], [place] [id number] Jul, [facility] [address] [id number] [address] [place] [address], [place] [id number] Jul, [facility] [address] [id number] [address] [place] [address], [place] [id number] Jul, [facility] [address] [id number] [address] [place] [address], [place] [id number] Jul, [facility] [address] [id number] [address] [place] [address], [place] [id number] Jul, [facility] [address] [id number] [address] [place] [address], [place] [id number] Jul, [facility] [address] [id number] [address] [place] [address], [place] [id number] Jul, [facility] [address] [id number] [address] [place] [address], [place] [id number] Jul, [facility] [address] [id number] [address] [place] [address], [place] [id number] 14 Jun, 2013 [facility] [address] [id number] [address] [place] [address], [place] [id number] 14 Jun, 2013 [facility] [address] [id number] [address] [place] [address], [place] [id number] Jun, [facility] [address] [id number] [address] [place] [address], [place] [id number] Jun, [facility] [address] [id number] [address] [place] [address], [place] [id number] Jun, [facility] [address] [id number] [address] [place] [address], [place] [id number] Jun, [facility] [address] [id number] [address] [place] [address], [place] [id number] 31 May, 2013 [facility] [address] [id number] [address] [place] [address], [place] [id number] 31 May, 2013 [facility] [address] [id number] [address] [place] [address], [place] [id number] 17 May, 2013 [facility] [address] [id number] [address] [place] [address], [place] [id number] 17 May, 2013 [facility] [address] [id number] [address] [place] [address], [place] [id number] 14 May, 2013 [facility] [address] [id number] [address] [place] [address], [place] [id number] 14 May, 2013 [facility] [address] [id number] [address] [place] [address], [place] [id number] 10 May, 2013 [facility] [address] [id number] [address] [place] [address], [place] [id number] 10 May, 2013 [facility] [address] [id number] [address] [place] [id number] 07 May, 2013 [facility] [address] [id number] [address] [place] [id number] 20 Sep, 2012 [facility] [address] [id number] [address] [place] [address], [place] [id number] 19 Sep, 2012 [facility] [address] [id number] [address] [place] [address], [place] [id number] 12 Apr, 2012 [facility] [address] [id number] [address] [place] [address], [place] [id number] 24 Sep, 2011 [facility] [address] [id number] [address] [place] [address], [place] [id number] 21 Sep, 2011 [facility] [address] [id number] [address] [place] [address], [place] [id number] 21 Apr, 2011 [facility] [address] [id number] [address] [place] [address], [place] [id number] 14 Apr, 2011 [facility] [address] [id number] [address] [place] [address], [place] [id number] 10 Apr, 2011 [facility] [address] [id number] [address] [place] [address], [place] [id number] 06 Apr, 2011 [facility] [address] [id number] [address] [place] [address], [place] [id number] 04 Apr, 2011 [facility] [address] [id number] [address] [place] [address], [place] [id number] 31 Mar, 2012 [facility] [address] [id number] [address] [place] [address], [place] [id number] 28 Mar, 2012 [facility] [address] [id number] [address] [place] [address], [place] [id number] 27 Mar, 2012 [facility] [address] [id number] [address] [place] [address], [place] [id number] 10 Mar, 2012 [facility] [address] [id number] [address] [place] [address], [place] [id number] 08 Mar, 2012 [facility] [address] [id number] [address] [place] [address], [place] [id number] 03 Mar, 2012 [facility] [address] [id number] [address] [place] [address], [place] [id number] Feb, [facility] [address] [id number] [address] [place] [address], [place] [id number] Feb, [facility] [address] [id number] [address] [place] [address], [place] [id number] Feb, [facility] [address] [id number] [address] [place] [address], [place] [id number] Jan, [facility] [address] [id number] [address] [place] [address], [place] [id number] Jan, [facility] [address] [id number] [address] [place] [address], [place] [id number] Jan, [facility] [address] [id number] [address] [place] [address], [place] [id number] Jan, [facility] [address] [id number] [address] [place] [address], [place] [id number] Jan, [facility] [address] [id number] [address] [place] [address], [place] [id number] Jan, [facility] [address] [id number] [address] [place] [address], [place] [id number] Jan, [facility] [address] [id number] [address] [place] [address], [place] [id number] Jan, [facility] [address] [id number] [address] [place] [address], [place] [id number] December, [facility] [address] [id number] [address] [place] [address], [place] [id number] December, [facility] [address] [id number] [address] [place] [address], [place] [id number] December, [facility] [address] [id number] [address] [place] [address], [place] [id number] December, [facility] [address] [id number] [address] [place] [address], [place] [id number] December, [facility] [address] [id number] [address] [place] [address], [place] [id number] December, [facility] [address] [id number] [address] [place] [address], [place] [id number] 13 Nov, 2011 [facility] [address] [id number] [address] [place] [address], [place] [id number] 13 Nov, 2011 [facility] [address] [id number] [address] [place] [address], [place] [id number] Nov, [facility] [address] [id number] [address] [place] [address], [place] [id number] Nov, [facility] [address] [id number] [address] [place] [address], [place] [id number] Nov, [facility] [address] [id number] [address] [place] [address], [place] [id number] Oct, [facility] [address] [id number] [address] [place] [address], [place] [id number] 17 Sep, 2011 [facility] [address] [id number] [address] [place] [address], [place] [id number] Aug, [facility] [address] [id number] [address] [place] [address], [place] [id number] Aug, [facility] [address] [id number] [address] [place] [address], [place] [id number] Aug, [facility] [address] [id number] [address] [place] [address], [place] [id number] Aug, [facility] [address] [id number] [address] [place] [address], [place] [id number] Aug, [facility] [address] [id number] [address] [place] [address], [place] [id number] Jul, [facility] [address] [id number] [address] [place] [address], [place] [id number] Jul, [facility] [address] [id number] [address] [place] [address], [place] [id number] Jun, [facility] [address] [id number] [address] [place] [address], [place] [id number] Jun, [facility] [address] [id number] [address] [place] [address], [place] [id number] Jun, [facility] [address] [id number] [address] [place] [address], [place] [id number] May, [facility] [address] [id number] [address] [place] [address], [place] [id number] May, [facility] [address] [id number] [address] [place] [address], [place] [id number] 16 Oct, 2010 [facility] [address] [id number] [address] [place] [address], [place] [id number] Oct, [facility] [address] [id number] [address] [place] [address], [place] [id number] 29 Jul, 2010 [facility] [address] [id number] [address] [place] [address], [place] [id number] 08 Jul, 2010 [facility] [address] [id number] [address] [place] [address], [place] [id number] Jul, [facility] [address] [id number] [address] [place] [address], [place] [id number] Jul, [facility] [address] [id number] [address] [place] [address], [place] [id number] Jul, [facility] [address] [id number] [address] [place] [address], [place] [id number] Jun, [facility] [address] [id number] [address] [place] [address], [place] [id number] Jun, [facility] [address] [id number] [address] [place] [address], [place] [id number] Jun, [facility] [address] [id number] [address] [place] [address], [place] [id number] May, [facility] [address] [facility] [id number] [address] [place] [address] Mar, IMMUNIZATIONS Vaccine Route Administration Date Status FLU Vaccine (History) Unknown Jun 18, 2014 Administer ed SOCIAL HISTORY Never Assessed REASON FOR VISIT PLAN OF CARE VITAL SIGNS Height 60 in 2014-06-18 Weight 209.44 lbs 2014-06-18 Temperature 97.8 degrees Fahrenheit 2014-06-18 Heart Rate 82 bpm 2014-06-18 Respiratory Rate 8 2014-06-18 Blood pressure systolic 142 mmHg 2014-06-18 Blood pressure diastolic 80 mmHg 2014-06-18 MEDICATIONS Unknown Medications RESULTS No Results PROCEDURES [...]
--- OUTSIDE RECORDS SUMMARY | 2019-11-28 22:50 | XMS REPORT ---
Author Author Caren LYLE Organization [facility] Address [address] [place] [address] Care Team Providers Care Director Of Critical Care Name Role Phone LAURIE LYLE Unavailable PROBLEMS Type Condition ICD9-CM Code [id number] Code Onset Dates Condition S tatus SNOMED Code Problem COPD (chronic obstructive pulmonary disease) J44.9 Active 98455008 Problem Diabetes E11.9 Active 89183377 Problem Diabetic neuropathy E11.40 Active 423893890 Problem Arthritis M19.90 Active [id number] ALLERGIES No Information ENCOUNTERS Encounter Location Date Diagnosis [facility] [address] [facility] [id number] [address] [place] [address] December, [facility] [address] [id number] [address] [place] [address] Aug, Arthritis M19.90 [facility] [address] [facility] [id number] [address] [place] [address] Jul, [facility] [address] [facility] [id number] [address] [place] [address] Jul, [facility] [address] [facility] [id number] [address] [place] [address] Jul, [facility] [address] [id number] [address] [place] [address] Jul, [facility] [address] [facility] [id number] [address] [place] [address] Jul, Diabetes E11.9 ; Diabetic ne uropathy E11.40 ; Arthritis M19.90 and COPD (chronic obstructive pulmonary disease) J44.9 [facility] [address] [facility] [id number] [address] [place] [address] Jul, [facility] [address] [id number] [address] [place] [address], [place] [address] 23 Jun, 2015 [facility] [address] [id number] [address] [place] [address], [place] [address] 23 Jun, 2015 [facility] [address] [id number] [address] [place] [address], [place] [address] 17 Jun, 2014 [facility] [address] [id number] [address] [place] [address], [place] [address] 10 Jun, 2014 [facility] [address] [id number] [address] [place] [address], [place] [address] 15 May, 2015 [facility] [address] [id number] [address] [place] [address], [place] [address] 13 May, 2015 [facility] [address] [id number] [address] [place] [address], [place] [address] 07 May, 2015 [facility] [address] [id number] [address] [place] [address], [place] [address] 22 Sep, 2014 [facility] [address] [id number] [address] [place] [address], [place] [address] 21 Sep, 2014 [facility] [address] [id number] [address] [place] [address], [place] [address] 21 Sep, 2014 [facility] [address] [id number] [address] [place] [address], [place] [address] 15 Sep, 2014 [facility] [address] [id number] [address] [place] [address], [place] [address] 11 Sep, 2014 [facility] [address] [id number] [address] [place] [address], [place] [address] 09 Sep, 2014 [facility] [address] [id number] [address] [place] [address], [place] [address] 08 Sep, 2014 [facility] [address] [id number] [address] [place] [address], [place] [address] 03 Sep, 2014 [facility] [address] [id number] [address] [place] [address] [address] Apr, [facility] [address] [facility] [id number] [address] [place] [address] Mar, [facility] [address] [facility] [id number] [address] [place] [address] Mar, [facility] [address] [facility] [id number] [address] [place] [address] Mar, [facility] [address] [facility] [id number] [address] [place] [address] Mar, [facility] [address] [facility] [id number] [address] [place] [address] Mar, [facility] [address] [facility] [id number] [address] [place] [address] Mar, Diabetes mellitus 250.00 ; C OPD (chronic obstructive pulmonary disease) 496 ; Anxiety 300.00 and Arthritis 716.90 [facility] [address] [facility] [id number] [address] [place] [address] Feb, [facility] [address] [facility] [id number] [address] [place] [address] Feb, [facility] [address] [facility] [id number] [address] [place] [address] Feb, [facility] [address] [facility] [id number] [address] [place] [address] Feb, [facility] [address] [facility] [id number] [address] [place] [address] Jan, Seborrheic keratosis 702.19 and Nevus 216.9 [facility] [address] [facility] [id number] [address] [place] [address] Jan, [facility] [address] [facility] [id number] [address] [place] [address] Jan, Routine gynecological examin ation V72.31 ; Breast cancer screening V76.10 ; Hot flashes 627.2 ; Atypical nevi 216.9 and Constipation 564.00 [facility] [address] [id number] [address] [place] [address], [place] [address] Jan, [facility] [address] [id number] [address] [place] [address], [place] [address] December, [facility] [address] [id number] [address] [place] [address], [place] [address] December, [facility] [address] [id number] [address] [place] [address], [place] [address] Nov, [facility] [address] [id number] [address] [place] [address], [place] [address] Nov, [facility] [address] [id number] [address] [place] [address], [place] [address] Oct, [facility] [address] [id number] [address] [place] [address], [place] [address] 23 Oct, 2014 [facility] [address] [id number] [address] [place] [address], [place] [address] 18 Oct, 2014 [facility] [address] [id number] [address] [place] [address], [place] [address] 18 Oct, 2014 [facility] [address] [id number] [address] [place] [address], [place] [address] 17 Oct, 2014 [facility] [address] [id number] [address] [place] [address], [place] [address] 17 Oct, 2014 [facility] [address] [id number] [address] [place] [address] 16 Oct, 2014 [facility] [address] [id number] [address] [place] [address], [place] [address] 16 Oct, 2014 [facility] [address] [id number] [address] [place] [address], [place] [address] 11 Oct, 2014 [facility] [address] [id number] [address] [place] [address], [place] [address] 11 Oct, 2014 [facility] [address] [id number] [address] [place] [address], [place] [address] Sep, 2014 [facility] [address] [id number] [address] [place] [address], [place] [address] Sep, 2014 [facility] [address] [id number] [address] [place] [address], [place] [address] 19 Sep, 2014 [facility] [address] [id number] [address] [place] [address], [place] [address] 18 Sep, 2014 [facility] [address] [id number] [address] [place] [address], [place] [address] Sep, 2014 [facility] [address] [id number] [address] [place] [address], [place] [address] Sep, 2014 [facility] [address] [id number] [address] [place] [address], [place] [address] Sep, 2014 [facility] [address] [id number] [address] [place] [address], [place] [address] Aug, [facility] [address] [id number] [address] [place] [address], [place] [address] Aug, [facility] [address] [id number] [address] [place] [address], [place] [address] Aug, [facility] [address] [id number] [address] [place] [address], [place] [address] Aug, [facility] [address] [id number] [address] [place] [address], [place] [address] Aug, [facility] [address] [id number] [address] [place] [address], [place] [address] Aug, [facility] [address] [id number] [address] [place] [address], [place] [address] Jul, [facility] [address] [id number] [address] [place] [address], [place] [address] Jul, [facility] [address] [id number] [address] [place] [address], [place] [address] Jul, [facility] [address] [id number] [address] [place] [address], [place] [address] Jul, [facility] [address] [id number] [address] [place] [address], [place] [address] Jul, [facility] [address] [id number] [address] [place] [address], [place] [address] Jun, [facility] [address] [id number] [address] [place] [address], [place] [address] Jun, [facility] [address] [id number] [address] [place] [address], [place] [address] Jun, [facility] [address] [id number] [address] [place] [address], [place] [address] Jun, [facility] [address] [id number] [address] [place] [address], [place] [address] Jun, [facility] [address] [id number] [address] [place] [address], [place] [address] Jun, [facility] [address] [id number] [address] [place] [address], [place] [address] May, [facility] [address] [id number] [address] [place] [address], [place] [address] May, [facility] [address] [id number] [address] [place] [address], [place] [address] May, [facility] [address] [id number] [address] [place] [address] May, [facility] [address] [id number] [address] [place] [address], [place] [address] May, [facility] [address] [id number] [address] [place] [address], [place] [address] May, [facility] [address] [id number] [address] [place] [address], [place] [address] May, [facility] [address] [id number] [address] [place] [address], [place] [address] May, [facility] [address] [id number] [address] [place] [address], [place] [address] May, [facility] [address] [id number] [address] [place] [address], [place] [address] Apr, [facility] [address] [id number] [address] [place] [address], [place] [address] Apr, [facility] [address] [id number] [address] [place] [address], [place] [address] Apr, [facility] [address] [id number] [address] [place] [address], [place] [address] Apr, [facility] [address] [id number] [address] [place] [address], [place] [address] Mar, [facility] [address] [id number] [address] [place] [address], [place] [address] Mar, [facility] [address] [id number] [address] [place] [address], [place] [address] Mar, [facility] [address] [id number] [address] [place] [address], [place] [address] Mar, [facility] [address] [id number] [address] [place] [address], [place] [address] Mar, [facility] [address] [id number] [address] [place] [address], [place] [address] Mar, [facility] [address] [id number] [address] [place] [address], [place] [address] Feb, [facility] [address] [id number] [address] [place] [address], [place] [address] Feb, [facility] [address] [id number] [address] [place] [address], [place] [address] Feb, [facility] [address] [id number] [address] [place] [address], [place] [address] Feb, [facility] [address] [id number] [facility] [address] Feb, 2013 [facility] [address] [id number] [facility] [address] Feb, [facility] [address] [id number] [address] [place] [address], [place] [address] Feb, 2013 [facility] [address] [id number] [address] [place] [address], [place] [address] Feb, 2013 [facility] [address] [id number] [address] [place] [address], [place] [address] Feb, 2013 [facility] [address] [id number] [address] [place] [address], [place] [address] Feb, [facility] [address] [id number] [address] [place] [address], [place] [address] Feb, [facility] [address] [id number] [address] [place] [address], [place] [address] Feb, [facility] [address] [id number] [address] [place] [address], [place] [address] Jan, [facility] [address] [id number] [address] [place] [address], [place] [address] Jan, [facility] [address] [id number] [address] [place] [address], [place] [address] Jan, [facility] [address] [id number] [address] [place] [address], [place] [address] Jan, [facility] [address] [id number] [address] [place] [address], [place] [address] Jan, [facility] [address] [id number] [address] [place] [address], [place] [address] Jan, [facility] [address] [id number] [address] [place] [address], [place] [address] Jan, [facility] [address] [id number] [address] [place] [address], [place] [address] Jan, [facility] [address] [id number] [address] [place] [address], [place] [address] Jan, [facility] [address] [id number] [address] [place] [address], [place] [address] Jan, [facility] [address] [id number] [address] [place] [address], [place] [address] Jan, [facility] [address] [id number] [address] [place] [address], [place] [address] Jan, [facility] [address] [id number] [address] [place] [address], [place] [address] Jan, [facility] [address] [id number] [address] [place] [address], [place] [address] Jan, [facility] [address] [id number] [address] [place] [address], [place] [address] Jan, [facility] [address] [id number] [address] [place] [address], [place] [address] Jan, [facility] [address] [id number] [address] [place] [address], [place] [address] Jan, [facility] [address] [id number] [address] [place] [address], [place] [address] December, [facility] [address] [id number] [address] [place] [address], [place] [address] December, [facility] [address] [id number] [address] [place] [address], [place] [address] December, [facility] [address] [id number] [address] [place] [address], [place] [address] December, [facility] [address] [id number] [address] [place] [address], [place] [address] December, [facility] [address] [id number] [address] [place] [address], [place] [address] December, [facility] [address] [id number] [address] [place] [address], [place] [address] Nov, [facility] [address] [id number] [address] [place] [address], [place] [address] Nov, [facility] [address] [id number] [address] [place] [address], [place] [address] Nov, [facility] [address] [id number] [address] [place] [address], [place] [address] Nov, [facility] [address] [id number] [address] [place] [address], [place] [address] Nov, [facility] [address] [id number] [address] [place] [address], [place] [address] Nov, [facility] [address] [id number] [address] [place] [address], [place] [address] Nov, [facility] [address] [id number] [address] [place] [address], [place] [address] Nov, [facility] [address] [id number] [address] [place] [address], [place] [address] Nov, [facility] [address] [id number] [address] [place] [address], [place] [address] Nov, [facility] [address] [id number] [address] [place] [address], [place] [address] Nov, [facility] [address] [id number] [address] [place] [address], [place] [address] Nov, [facility] [address] [id number] [address] [place] [address], [place] [address] Nov, [facility] [address] [id number] [address] [place] [address], [place] [address] Nov, [facility] [address] [id number] [address] [place] [address], [place] [address] Nov, [facility] [address] [id number] [address] [place] [address], [place] [address] Nov, [facility] [address] [id number] [address] [place] [address], [place] [address] Oct, [facility] [address] [id number] [address] [place] [address], [place] [address] Oct, [facility] [address] [id number] [address] [place] [address], [place] [address] Oct, [facility] [address] [id number] [address] [place] [address], [place] [address] Oct, [facility] [address] [id number] [address] [place] [address], [place] [address] Oct, [facility] [address] [id number] [address] [place] [address], [place] [address] Oct, [facility] [address] [id number] [address] [place] [address], [place] [address] Oct, [facility] [address] [id number] [address] [place] [address], [place] [address] Oct, [facility] [address] [id number] [address] [place] [address], [place] [address] Sep, [facility] [address] [id number] [address] [place] [address], [place] [address] Sep, [facility] [address] [id number] [address] [place] [address], [place] [address] Sep, [facility] [address] [id number] [address] [place] [address], [place] [address] Sep, [facility] [address] [id number] [address] [place] [address], [place] [address] Sep, [facility] [address] [id number] [address] [place] [address], [place] [address] Sep, [facility] [address] [id number] [address] [place] [address], [place] [address] Aug, [facility] [address] [id number] [address] [place] [address], [place] [address] Aug, [facility] [address] [id number] [address] [place] [address], [place] [address] Aug, [facility] [address] [id number] [address] [place] [address], [place] [address] Aug, [facility] [address] [id number] [address] [place] [address], [place] [address] Aug, [facility] [address] [id number] [address] [place] [address], [place] [address] Aug, [facility] [address] [id number] [address] [place] [address], [place] [address] Aug, [facility] [address] [id number] [address] [place] [address], [place] [address] Aug, [facility] [address] [id number] [address] [place] [address], [place] [address] Jul, [facility] [address] [id number] [address] [place] [address], [place] [address] Jul, [facility] [address] [id number] [address] [place] [address], [place] [address] Jul, [facility] [address] [id number] [address] [place] [address], [place] [address] Jul, [facility] [address] [id number] [address] [place] [address], [place] [address] Jul, [facility] [address] [id number] [address] [place] [address], [place] [address] Jul, [facility] [address] [id number] [address] [place] [address], [place] [address] Jul, [facility] [address] [id number] [address] [place] [address], [place] [address] Jul, [facility] [address] [id number] [address] [place] [address], [place] [address] Jul, [facility] [address] [id number] [address] [place] [address], [place] [address] 14 Jun, 2013 [facility] [address] [id number] [address] [place] [address], [place] [address] 14 Jun, 2013 [facility] [address] [id number] [address] [place] [address], [place] [address] Jun, [facility] [address] [id number] [address] [place] [address], [place] [address] Jun, [facility] [address] [id number] [address] [place] [address], [place] [address] Jun, [facility] [address] [id number] [address] [place] [address], [place] [address] Jun, [facility] [address] [id number] [address] [place] [address], [place] [address] 31 May, 2013 [facility] [address] [id number] [address] [place] [address], [place] [address] 31 May, 2013 [facility] [address] [id number] [address] [place] [address], [place] [address] 17 May, 2013 [facility] [address] [id number] [address] [place] [address], [place] [address] 17 May, 2013 [facility] [address] [id number] [address] [place] [address], [place] [address] 14 May, 2013 [facility] [address] [id number] [address] [place] [address], [place] [address] 14 May, 2013 [facility] [address] [id number] [address] [place] [address], [place] [address] 10 May, 2013 [facility] [address] [id number] [address] [place] [address], [place] [address] 10 May, 2013 [facility] [address] [id number] [address] [place] [id number] 07 May, 2013 [facility] [address] [id number] [address] [place] [address] 20 Sep, 2012 [facility] [address] [id number] [address] [place] [address], [place] [address] 19 Sep, 2012 [facility] [address] [id number] [address] [place] [address], [place] [address] 12 Apr, 2012 [facility] [address] [id number] [address] [place] [address], [place] [address] 24 Sep, 2011 [facility] [address] [id number] [address] [place] [address], [place] [address] 21 Sep, 2011 [facility] [address] [id number] [address] [place] [address], [place] [address] 21 Apr, 2011 [facility] [address] [id number] [address] [place] [address], [place] [address] 14 Apr, 2011 [facility] [address] [id number] [address] [place] [address], [place] [address] 10 Apr, 2011 [facility] [address] [id number] [address] [place] [address], [place] [address] 06 Apr, 2011 [facility] [address] [id number] [address] [place] [address], [place] [address] 04 Apr, 2011 [facility] [address] [id number] [address] [place] [address], [place] [address] 31 Mar, 2012 [facility] [address] [id number] [address] [place] [address], [place] [address] 28 Mar, 2012 [facility] [address] [id number] [address] [place] [address], [place] [address] 27 Mar, 2012 [facility] [address] [id number] [address] [place] [address], [place] [address] 10 Mar, 2012 [facility] [address] [id number] [address] [place] [address], [place] [address] 08 Mar, 2012 [facility] [address] [id number] [address] [place] [address], [place] [address] 03 Mar, 2012 [facility] [address] [id number] [address] [place] [address], [place] [address] Feb, [facility] [address] [id number] [address] [place] [address], [place] [address] Feb, [facility] [address] [id number] [address] [place] [address], [place] [address] Feb, [facility] [address] [id number] [address] [place] [address], [place] [address] Jan, [facility] [address] [id number] [address] [place] [address], [place] [address] Jan, [facility] [address] [id number] [address] [place] [address], [place] [address] Jan, [facility] [address] [id number] [address] [place] [address], [place] [address] Jan, [facility] [address] [id number] [address] [place] [address], [place] [address] Jan, [facility] [address] [id number] [address] [place] [address], [place] [address] Jan, [facility] [address] [id number] [address] [place] [address], [place] [address] Jan, [facility] [address] [id number] [address] [place] [address], [place] [address] Jan, [facility] [address] [id number] [address] [place] [address], [place] [address] December, [facility] [address] [id number] [address] [place] [address], [place] [address] December, [facility] [address] [id number] [address] [place] [address], [place] [address] December, [facility] [address] [id number] [address] [place] [address], [place] [address] December, [facility] [address] [id number] [address] [place] [address], [place] [address] December, [facility] [address] [id number] [address] [place] [address], [place] [address] December, [facility] [address] [id number] [address] [place] [address], [place] [address] 13 Nov, 2011 [facility] [address] [id number] [address] [place] [address], [place] [address] 13 Nov, 2011 [facility] [address] [id number] [address] [place] [address], [place] [address] Nov, [facility] [address] [id number] [address] [place] [address], [place] [address] Nov, [facility] [address] [id number] [address] [place] [address], [place] [address] Nov, [facility] [address] [id number] [address] [place] [address], [place] [address] Oct, [facility] [address] [id number] [address] [place] [address], [place] [address] 17 Sep, 2011 [facility] [address] [id number] [address] [place] [address], [place] [address] Aug, [facility] [address] [id number] [address] [place] [address], [place] [address] Aug, [facility] [address] [id number] [address] [place] [address], [place] [address] Aug, [facility] [address] [id number] [address] [place] [address], [place] [address] Aug, [facility] [address] [id number] [address] [place] [address], [place] [address] Aug, [facility] [address] [id number] [address] [place] [address], [place] [address] Jul, [facility] [address] [id number] [address] [place] [address], [place] [address] Jul, [facility] [address] [id number] [address] [place] [address], [place] [address] Jun, [facility] [address] [id number] [address] [place] [address], [place] [address] Jun, [facility] [address] [id number] [address] [place] [address], [place] [address] Jun, [facility] [address] [id number] [address] [place] [address], [place] [address] May, [facility] [address] [id number] [address] [place] [address], [place] [address] May, [facility] [address] [id number] [address] [place] [address], [place] [address] 16 Oct, 2010 [facility] [address] [id number] [address] [place] [address], [place] [address] Oct, [facility] [address] [id number] [address] [place] [address], [place] [address] 29 Jul, 2010 [facility] [address] [id number] [address] [place] [address], [place] [address] 08 Jul, 2010 [facility] [address] [id number] [address] [place] [address], [place] [address] Jul, [facility] [address] [id number] [address] [place] [address], [place] [address] Jul, [facility] [address] [id number] [address] [place] [address], [place] [address] Jul, [facility] [address] [id number] [address] [place] [address], [place] [address] Jun, [facility] [address] [id number] [address] [place] [address], [place] [address] Jun, [facility] [address] [id number] [address] [place] [address], [place] [address] Jun, [facility] [address] [id number] [address] [place] [address], [place] [address] May, [facility] [address] [facility] [id number] [address] [place] [address] 16 Mar, 2010 IMMUNIZATIONS No Known Immunizations SOCIAL HISTORY Never Assessed REASON FOR VISIT PLAN OF CARE VITAL SIGNS Height 60 in 2014-03-29 Weight 234 lbs 2014-03-29 Temperature 97.5 degrees Fahrenheit 2014-03-29 Heart Rate 88 bpm 2014-03-29 Respiratory Rate 20 2014-03-29 Blood pressure systolic 168 mmHg 2014-03-29 Blood pressure diastolic 96 mmHg 2014-03-29 MEDICATIONS Unknown Medications RESULTS No Results PROCEDURES [...]
--- OUTSIDE RECORDS SUMMARY | 2019-11-28 22:51 | XMS REPORT ---
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 [id number] [address] [place] [address] December, [facility] [address] [id number] [address] [place] [address] Aug, Arthritis M19.90 [facility] [address] [facility] [id number] [address] [place] [address] Jul, [facility] [address] [facility] [id number] [address] [place] [address] Jul, [facility] [address] [facility] [id number] [address] [place] [address] Jul, [facility] [address] [id number] [address] [place] [address] Jul, [facility] [address] [facility] [id number] [address] [place] [address] Jul, Diabetes E11.9 ; Diabetic ne uropathy E11.40 ; Arthritis M19.90 and COPD (chronic obstructive pulmonary disease) J44.9 [facility] [address] [facility] [id number] [address] [place] [address] Jul, [facility] [address] [id number] [address] [place] [address], [place] [address] 23 Jun, 2015 [facility] [address] [id number] [address] [place] [address], [place] [address] 23 Jun, 2015 [facility] [address] [id number] [address] [place] [address], [place] [address] 17 Jun, 2014 [facility] [address] [id number] [address] [place] [address], [place] [address] 10 Jun, 2014 [facility] [address] [id number] [address] [place] [address], [place] [address] 15 May, 2015 [facility] [address] [id number] [address] [place] [address], [place] [address] 13 May, 2015 [facility] [address] [id number] [address] [place] [address], [place] [address] 07 May, 2015 [facility] [address] [id number] [address] [place] [address], [place] [address] 22 Sep, 2014 [facility] [address] [id number] [address] [place] [address], [place] [address] 21 Sep, 2014 [facility] [address] [id number] [address] [place] [address], [place] [address] 21 Sep, 2014 [facility] [address] [id number] [address] [place] [address], [place] [address] 15 Sep, 2014 [facility] [address] [id number] [address] [place] [address], [place] [address] 11 Sep, 2014 [facility] [address] [id number] [address] [place] [address], [place] [address] 09 Sep, 2014 [facility] [address] [id number] [address] [place] [address], [place] [address] 08 Sep, 2014 [facility] [address] [id number] [address] [place] [address], [place] [address] 03 Sep, 2014 [facility] [address] [id number] [address] [place] [address] [address] Apr, [facility] [address] [facility] [id number] [address] [place] [address] Mar, [facility] [address] [facility] [id number] [address] [place] [address] Mar, [facility] [address] [facility] [id number] [address] [place] [address] Mar, [facility] [address] [facility] [id number] [address] [place] [address] Mar, [facility] [address] [facility] [id number] [address] [place] [address] Mar, [facility] [address] [facility] [id number] [address] [place] [address] Mar, Diabetes mellitus 250.00 ; C OPD (chronic obstructive pulmonary disease) 496 ; Anxiety 300.00 and Arthritis 716.90 [facility] [address] [facility] [id number] [address] [place] [address] Feb, [facility] [address] [facility] [id number] [address] [place] [address] Feb, [facility] [address] [facility] [id number] [address] [place] [address] Feb, [facility] [address] [facility] [id number] [address] [place] [address] Feb, [facility] [address] [facility] [id number] [address] [place] [address] Jan, Seborrheic keratosis 702.19 and Nevus 216.9 [facility] [address] [facility] [id number] [address] [place] [address] Jan, [facility] [address] [facility] [id number] [address] [place] [address] Jan, Routine gynecological examin ation V72.31 ; Breast cancer screening V76.10 ; Hot flashes 627.2 ; Atypical nevi 216.9 and Constipation 564.00 [facility] [address] [id number] [address] [place] [address], [place] [address] Jan, [facility] [address] [id number] [address] [place] [address], [place] [address] December, [facility] [address] [id number] [address] [place] [address], [place] [address] December, [facility] [address] [id number] [address] [place] [address], [place] [address] Nov, [facility] [address] [id number] [address] [place] [address], [place] [address] Nov, [facility] [address] [id number] [address] [place] [address], [place] [address] Oct, [facility] [address] [id number] [address] [place] [address], [place] [address] 23 Oct, 2014 [facility] [address] [id number] [address] [place] [address], [place] [address] 18 Oct, 2014 [facility] [address] [id number] [address] [place] [address], [place] [address] 18 Oct, 2014 [facility] [address] [id number] [address] [place] [address], [place] [address] 17 Oct, 2014 [facility] [address] [id number] [address] [place] [address], [place] [address] 17 Oct, 2014 [facility] [address] [id number] [address] [place] [address] 16 Oct, 2014 [facility] [address] [id number] [address] [place] [address], [place] [address] 16 Oct, 2014 [facility] [address] [id number] [address] [place] [address], [place] [address] 11 Oct, 2014 [facility] [address] [id number] [address] [place] [address], [place] [address] 11 Oct, 2014 [facility] [address] [id number] [address] [place] [address], [place] [address] Sep, 2014 [facility] [address] [id number] [address] [place] [address], [place] [address] Sep, 2014 [facility] [address] [id number] [address] [place] [address], [place] [address] 19 Sep, 2014 [facility] [address] [id number] [address] [place] [address], [place] [address] 18 Sep, 2014 [facility] [address] [id number] [address] [place] [address], [place] [address] Sep, 2014 [facility] [address] [id number] [address] [place] [address], [place] [address] Sep, 2014 [facility] [address] [id number] [address] [place] [address], [place] [address] Sep, 2014 [facility] [address] [id number] [address] [place] [address], [place] [address] Aug, [facility] [address] [id number] [address] [place] [address], [place] [address] Aug, [facility] [address] [id number] [address] [place] [address], [place] [address] Aug, [facility] [address] [id number] [address] [place] [address], [place] [address] Aug, [facility] [address] [id number] [address] [place] [address], [place] [address] Aug, [facility] [address] [id number] [address] [place] [address], [place] [address] Aug, [facility] [address] [id number] [address] [place] [address], [place] [address] Jul, [facility] [address] [id number] [address] [place] [address], [place] [address] Jul, [facility] [address] [id number] [address] [place] [address], [place] [address] Jul, [facility] [address] [id number] [address] [place] [address], [place] [address] Jul, [facility] [address] [id number] [address] [place] [address], [place] [address] Jul, [facility] [address] [id number] [address] [place] [address], [place] [address] Jun, [facility] [address] [id number] [address] [place] [address], [place] [address] Jun, [facility] [address] [id number] [address] [place] [address], [place] [address] Jun, [facility] [address] [id number] [address] [place] [address], [place] [address] Jun, [facility] [address] [id number] [address] [place] [address], [place] [address] Jun, [facility] [address] [id number] [address] [place] [address], [place] [address] Jun, [facility] [address] [id number] [address] [place] [address], [place] [address] May, [facility] [address] [id number] [address] [place] [address], [place] [address] May, [facility] [address] [id number] [address] [place] [address], [place] [address] May, [facility] [address] [id number] [address] [place] [address] May, [facility] [address] [id number] [address] [place] [address], [place] [address] May, [facility] [address] [id number] [address] [place] [address], [place] [address] May, [facility] [address] [id number] [address] [place] [address], [place] [address] May, [facility] [address] [id number] [address] [place] [address], [place] [address] May, [facility] [address] [id number] [address] [place] [address], [place] [address] May, [facility] [address] [id number] [address] [place] [address], [place] [address] Apr, [facility] [address] [id number] [address] [place] [address], [place] [address] Apr, [facility] [address] [id number] [address] [place] [address], [place] [address] Apr, [facility] [address] [id number] [address] [place] [address], [place] [address] Apr, [facility] [address] [id number] [address] [place] [address], [place] [address] Mar, [facility] [address] [id number] [address] [place] [address], [place] [address] Mar, [facility] [address] [id number] [address] [place] [address], [place] [address] Mar, [facility] [address] [id number] [address] [place] [address], [place] [address] Mar, [facility] [address] [id number] [address] [place] [address], [place] [address] Mar, [facility] [address] [id number] [address] [place] [address], [place] [address] Mar, [facility] [address] [id number] [address] [place] [address], [place] [address] Feb, [facility] [address] [id number] [address] [place] [address], [place] [address] Feb, [facility] [address] [id number] [address] [place] [address], [place] [address] Feb, [facility] [address] [id number] [address] [place] [address], [place] [address] Feb, [facility] [address] [id number] [facility] [place] [place] [address] Feb, 2013 [facility] [address] [id number] [facility] [place] [place] [address] Feb, [facility] [address] [id number] [address] [place] [address], [place] [address] Feb, 2013 [facility] [address] [id number] [address] [place] [address], [place] [address] Feb, 2013 [facility] [address] [id number] [address] [place] [address], [place] [address] Feb, 2013 [facility] [address] [id number] [address] [place] [address], [place] [address] Feb, [facility] [address] [id number] [address] [place] [address], [place] [address] Feb, [facility] [address] [id number] [address] [place] [address], [place] [address] Feb, [facility] [address] [id number] [address] [place] [address], [place] [address] Jan, [facility] [address] [id number] [address] [place] [address], [place] [address] Jan, [facility] [address] [id number] [address] [place] [address], [place] [address] Jan, [facility] [address] [id number] [address] [place] [address], [place] [address] Jan, [facility] [address] [id number] [address] [place] [address], [place] [address] Jan, [facility] [address] [id number] [address] [place] [address], [place] [address] Jan, [facility] [address] [id number] [address] [place] [address], [place] [address] Jan, [facility] [address] [id number] [address] [place] [address], [place] [address] Jan, [facility] [address] [id number] [address] [place] [address], [place] [address] Jan, [facility] [address] [id number] [address] [place] [address], [place] [address] Jan, [facility] [address] [id number] [address] [place] [address], [place] [address] Jan, [facility] [address] [id number] [address] [place] [address], [place] [address] Jan, [facility] [address] [id number] [address] [place] [address], [place] [address] Jan, [facility] [address] [id number] [address] [place] [address], [place] [address] Jan, [facility] [address] [id number] [address] [place] [address], [place] [address] Jan, [facility] [address] [id number] [address] [place] [address], [place] [address] Jan, [facility] [address] [id number] [address] [place] [address], [place] [address] Jan, [facility] [address] [id number] [address] [place] [address], [place] [address] December, [facility] [address] [id number] [address] [place] [address], [place] [address] December, [facility] [address] [id number] [address] [place] [address], [place] [address] December, [facility] [address] [id number] [address] [place] [address], [place] [address] December, [facility] [address] [id number] [address] [place] [address], [place] [address] December, [facility] [address] [id number] [address] [place] [address], [place] [address] December, [facility] [address] [id number] [address] [place] [address], [place] [address] Nov, [facility] [address] [id number] [address] [place] [address], [place] [address] Nov, [facility] [address] [id number] [address] [place] [address], [place] [address] Nov, [facility] [address] [id number] [address] [place] [address], [place] [address] Nov, [facility] [address] [id number] [address] [place] [address], [place] [address] Nov, [facility] [address] [id number] [address] [place] [address], [place] [address] Nov, [facility] [address] [id number] [address] [place] [address], [place] [address] Nov, [facility] [address] [id number] [address] [place] [address], [place] [address] Nov, [facility] [address] [id number] [address] [place] [address], [place] [address] Nov, [facility] [address] [id number] [address] [place] [address], [place] [address] Nov, [facility] [address] [id number] [address] [place] [address], [place] [address] Nov, [facility] [address] [id number] [address] [place] [address], [place] [address] Nov, [facility] [address] [id number] [address] [place] [address], [place] [address] Nov, [facility] [address] [id number] [address] [place] [address], [place] [address] Nov, [facility] [address] [id number] [address] [place] [address], [place] [address] Nov, [facility] [address] [id number] [address] [place] [address], [place] [address] Nov, [facility] [address] [id number] [address] [place] [address], [place] [address] Oct, [facility] [address] [id number] [address] [place] [address], [place] [address] Oct, [facility] [address] [id number] [address] [place] [address], [place] [address] Oct, [facility] [address] [id number] [address] [place] [address], [place] [address] Oct, [facility] [address] [id number] [address] [place] [address], [place] [address] Oct, [facility] [address] [id number] [address] [place] [address], [place] [address] Oct, [facility] [address] [id number] [address] [place] [address], [place] [address] Oct, [facility] [address] [id number] [address] [place] [address], [place] [address] Oct, [facility] [address] [id number] [address] [place] [address], [place] [address] Sep, [facility] [address] [id number] [address] [place] [address], [place] [address] Sep, [facility] [address] [id number] [address] [place] [address], [place] [address] Sep, [facility] [address] [id number] [address] [place] [address], [place] [address] Sep, [facility] [address] [id number] [address] [place] [address], [place] [address] Sep, [facility] [address] [id number] [address] [place] [address], [place] [address] Sep, [facility] [address] [id number] [address] [place] [address], [place] [address] Aug, [facility] [address] [id number] [address] [place] [address], [place] [address] Aug, [facility] [address] [id number] [address] [place] [address], [place] [address] Aug, [facility] [address] [id number] [address] [place] [address], [place] [address] Aug, [facility] [address] [id number] [address] [place] [address], [place] [address] Aug, [facility] [address] [id number] [address] [place] [address], [place] [address] Aug, [facility] [address] [id number] [address] [place] [address], [place] [address] Aug, [facility] [address] [id number] [address] [place] [address], [place] [address] Aug, [facility] [address] [id number] [address] [place] [address], [place] [address] Jul, [facility] [address] [id number] [address] [place] [address], [place] [address] Jul, [facility] [address] [id number] [address] [place] [address], [place] [address] Jul, [facility] [address] [id number] [address] [place] [address], [place] [address] Jul, [facility] [address] [id number] [address] [place] [address], [place] [address] Jul, [facility] [address] [id number] [address] [place] [address], [place] [address] Jul, [facility] [address] [id number] [address] [place] [address], [place] [address] Jul, [facility] [address] [id number] [address] [place] [address], [place] [address] Jul, [facility] [address] [id number] [address] [place] [address], [place] [address] Jul, [facility] [address] [id number] [address] [place] [address], [place] [address] 14 Jun, 2013 [facility] [address] [id number] [address] [place] [address], [place] [address] 14 Jun, 2013 [facility] [address] [id number] [address] [place] [address], [place] [address] Jun, [facility] [address] [id number] [address] [place] [address], [place] [address] Jun, [facility] [address] [id number] [address] [place] [address], [place] [address] Jun, [facility] [address] [id number] [address] [place] [address], [place] [address] Jun, [facility] [address] [id number] [address] [place] [address], [place] [address] 31 May, 2013 [facility] [address] [id number] [address] [place] [address], [place] [address] 31 May, 2013 [facility] [address] [id number] [address] [place] [address], [place] [address] 17 May, 2013 [facility] [address] [id number] [address] [place] [address], [place] [address] 17 May, 2013 [facility] [address] [id number] [address] [place] [address], [place] [address] 14 May, 2013 [facility] [address] [id number] [address] [place] [address], [place] [address] 14 May, 2013 [facility] [address] [id number] [address] [place] [address], [place] [address] 10 May, 2013 [facility] [address] [id number] [address] [place] [address], [place] [address] 10 May, 2013 [facility] [address] [id number] [address] [place] [address] 07 May, 2013 [facility] [address] [id number] [address] [place] [address] 20 Sep, 2012 [facility] [address] [id number] [address] [place] [address], [place] [address] 19 Sep, 2012 [facility] [address] [id number] [address] [place] [address], [place] [address] 12 Apr, 2012 [facility] [address] [id number] [address] [place] [address], [place] [address] 24 Sep, 2011 [facility] [address] [id number] [address] [place] [address], [place] [address] 21 Sep, 2011 [facility] [address] [id number] [address] [place] [address], [place] [address] 21 Apr, 2011 [facility] [address] [id number] [address] [place] [address], [place] [address] 14 Apr, 2011 [facility] [address] [id number] [address] [place] [address], [place] [address] 10 Apr, 2011 [facility] [address] [id number] [address] [place] [address], [place] [address] 06 Apr, 2011 [facility] [address] [id number] [address] [place] [address], [place] [address] 04 Apr, 2011 [facility] [address] [id number] [address] [place] [address], [place] [address] 31 Mar, 2012 [facility] [address] [id number] [address] [place] [address], [place] [address] 28 Mar, 2012 [facility] [address] [id number] [address] [place] [address], [place] [address] 27 Mar, 2012 [facility] [address] [id number] [address] [place] [address], [place] [address] 10 Mar, 2012 [facility] [address] [id number] [address] [place] [address], [place] [address] 08 Mar, 2012 [facility] [address] [id number] [address] [place] [address], [place] [address] 03 Mar, 2012 [facility] [address] [id number] [address] [place] [address], [place] [address] Feb, [facility] [address] [id number] [address] [place] [address], [place] [address] Feb, [facility] [address] [id number] [address] [place] [address], [place] [address] Feb, [facility] [address] [id number] [address] [place] [address], [place] [address] Jan, [facility] [address] [id number] [address] [place] [address], [place] [address] Jan, [facility] [address] [id number] [address] [place] [address], [place] [address] Jan, [facility] [address] [id number] [address] [place] [address], [place] [address] Jan, [facility] [address] [id number] [address] [place] [address], [place] [address] Jan, [facility] [address] [id number] [address] [place] [address], [place] [address] Jan, [facility] [address] [id number] [address] [place] [address], [place] [address] Jan, [facility] [address] [id number] [address] [place] [address], [place] [address] Jan, [facility] [address] [id number] [address] [place] [address], [place] [address] December, [facility] [address] [id number] [address] [place] [address], [place] [address] December, [facility] [address] [id number] [address] [place] [address], [place] [address] December, [facility] [address] [id number] [address] [place] [address], [place] [address] December, [facility] [address] [id number] [address] [place] [address], [place] [address] December, [facility] [address] [id number] [address] [place] [address], [place] [address] December, [facility] [address] [id number] [address] [place] [address], [place] [address] 13 Nov, 2011 [facility] [address] [id number] [address] [place] [address], [place] [address] 13 Nov, 2011 [facility] [address] [id number] [address] [place] [address], [place] [address] Nov, [facility] [address] [id number] [address] [place] [address], [place] [address] Nov, [facility] [address] [id number] [address] [place] [address], [place] [address] Nov, [facility] [address] [id number] [address] [place] [address], [place] [address] Oct, [facility] [address] [id number] [address] [place] [address], [place] [address] 17 Sep, 2011 [facility] [address] [id number] [address] [place] [address], [place] [address] Aug, [facility] [address] [id number] [address] [place] [address], [place] [address] Aug, [facility] [address] [id number] [address] [place] [address], [place] [address] Aug, [facility] [address] [id number] [address] [place] [address], [place] [address] Aug, [facility] [address] [id number] [address] [place] [address], [place] [address] Aug, [facility] [address] [id number] [address] [place] [address], [place] [address] Jul, [facility] [address] [id number] [address] [place] [address], [place] [address] Jul, [facility] [address] [id number] [address] [place] [address], [place] [address] Jun, [facility] [address] [id number] [address] [place] [address], [place] [address] Jun, [facility] [address] [id number] [address] [place] [address], [place] [address] Jun, [facility] [address] [id number] [address] [place] [address], [place] [address] May, [facility] [address] [id number] [address] [place] [address], [place] [address] May, [facility] [address] [id number] [address] [place] [address], [place] [address] 16 Oct, 2010 [facility] [address] [id number] [address] [place] [address], [place] [address] Oct, [facility] [address] [id number] [address] [place] [address], [place] [address] 29 Jul, 2010 [facility] [address] [id number] [address] [place] [address], [place] [address] 08 Jul, 2010 [facility] [address] [id number] [address] [place] [address], [place] [address] Jul, [facility] [address] [id number] [address] [place] [address], [place] [address] Jul, [facility] [address] [id number] [address] [place] [address], [place] [address] Jul, [facility] [address] [id number] [address] [place] [address], [place] [address] Jun, [facility] [address] [id number] [address] [place] [address], [place] [address] Jun, [facility] [address] [id number] [address] [place] [address], [place] [address] Jun, [facility] [address] [id number] [address] [place] [address], [place] [address] May, [facility] [address] [facility] [id number] [address] [place] [address] 16 Mar, 2010 IMMUNIZATIONS No Known Immunizations [...]
--- OUTSIDE RECORDS SUMMARY | 2019-11-28 22:51 | XMS REPORT ---
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 Name Role Phone LAURIE LYLE Unavailable PROBLEMS Type Condition ICD9-CM Code VLT52-KG Code Onset Dates Condition S tatus SNOMED Code Problem COPD (chronic obstructive pulmonary disease) J44.9 Active 93980576 Problem Diabetes E11.9 Active 72651366 Problem Diabetic neuropathy E11.40 Active 132120924 Problem Arthritis M19.90 Active [id number] ALLERGIES No Information ENCOUNTERS Encounter Location Date Diagnosis [facility] [address] [id number] [address] [place] [address] December, [facility] [address] [id number] [address] [place] [address] Aug, Arthritis M19.90 [facility] [address] [id number] [address] [place] [address] Jul, [facility] [address] [id number] [address] [place] [address] Jul, [facility] [address] [id number] [address] [place] [address] Jul, [facility] [address] [id number] [address] [place] [address] Jul, [facility] [address] [id number] [address] [place] [address] Jul, Diabetes E11.9 ; Diabetic ne uropathy E11.40 ; Arthritis M19.90 and COPD (chronic obstructive pulmonary disease) J44.9 [facility] [address] [id number] [address] [place] [address] Jul, [facility] [address] [id number] [address] [place] [address], [place] [address] 23 Jun, 2015 [facility] [address] [id number] [address] [place] [address], [place] [address] 23 Jun, 2015 [facility] [address] [id number] [address] [place] [address], [place] [address] 17 Jun, 2014 [facility] [address] [id number] [address] [place] [address], [place] [address] 10 Jun, 2014 [facility] [address] [id number] [address] [place] [address], [place] [address] 15 May, 2015 [facility] [address] [id number] [address] [place] [address], [place] [address] 13 May, 2015 [facility] [address] [id number] [address] [place] [address], [place] [address] 07 May, 2015 [facility] [address] [id number] [address] [place] [address], [place] [address] 22 Sep, 2014 [facility] [address] [id number] [address] [place] [address], [place] [address] 21 Sep, 2014 [facility] [address] [id number] [address] [place] [address], [place] [address] 21 Sep, 2014 [facility] [address] [id number] [address] [place] [address], [place] [address] 15 Sep, 2014 [facility] [address] [id number] [address] [place] [address], [place] [address] 11 Sep, 2014 [facility] [address] [id number] [address] [place] [address], [place] [address] 09 Sep, 2014 [facility] [address] [id number] [address] [place] [address], [place] [address] 08 Sep, 2014 [facility] [address] [id number] [address] [place] [address], [place] [address] 03 Sep, 2014 [facility] [address] [id number] [address] [place] [address] [address] Apr, [facility] [address] [id number] [address] [place] [address] Mar, [facility] [address] [id number] [address] [place] [address] Mar, [facility] [address] [id number] [address] [place] [address] Mar, [facility] [address] [id number] [address] [place] [address] Mar, [facility] [address] [id number] [address] [place] [address] Mar, [facility] [address] [id number] [address] [place] [address] Mar, Diabetes mellitus 250.00 ; C OPD (chronic obstructive pulmonary disease) 496 ; Anxiety 300.00 and Arthritis 716.90 [facility] [address] [id number] [address] [place] [address] Feb, [facility] [address] [id number] [address] [place] [address] Feb, [facility] [address] [id number] [address] [place] [address] Feb, [facility] [address] [id number] [address] [place] [address] Feb, [facility] [address] [id number] [address] [place] [address] Jan, Seborrheic keratosis 702.19 and Nevus 216.9 [facility] [address] [id number] [address] [place] [address] Jan, [facility] [address] [id number] [address] [place] [address] Jan, Routine gynecological examin ation V72.31 ; Breast cancer screening V76.10 ; Hot flashes 627.2 ; Atypical nevi 216.9 and Constipation 564.00 [facility] [address] [id number] [address] [place] [address], [place] [address] Jan, [facility] [address] [id number] [address] [place] [address], [place] [address] December, [facility] [address] [id number] [address] [place] [address], [place] [address] December, [facility] [address] [id number] [address] [place] [address], [place] [address] Nov, [facility] [address] [id number] [address] [place] [address], [place] [address] Nov, [facility] [address] [id number] [address] [place] [address], [place] [address] Oct, [facility] [address] [id number] [address] [place] [address], [place] [address] 23 Oct, 2014 [facility] [address] [id number] [address] [place] [address], [place] [address] 18 Oct, 2014 [facility] [address] [id number] [address] [place] [address], [place] [address] 18 Oct, 2014 [facility] [address] [id number] [address] [place] [address], [place] [address] 17 Oct, 2014 [facility] [address] [id number] [address] [place] [address], [place] [address] 17 Oct, 2014 [facility] [address] [id number] [address] [place] [address] 16 Oct, 2014 [facility] [address] [id number] [address] [place] [address], [place] [address] 16 Oct, 2014 [facility] [address] [id number] [address] [place] [address], [place] [address] 11 Oct, 2014 [facility] [address] [id number] [address] [place] [address], [place] [address] 11 Oct, 2014 [facility] [address] [id number] [address] [place] [address], [place] [address] Sep, 2014 [facility] [address] [id number] [address] [place] [address], [place] [address] Sep, 2014 [facility] [address] [id number] [address] [place] [address], [place] [address] 19 Sep, 2014 [facility] [address] [id number] [address] [place] [address], [place] [address] 18 Sep, 2014 [facility] [address] [id number] [address] [place] [address], [place] [address] Sep, 2014 [facility] [address] [id number] [address] [place] [address], [place] [address] Sep, 2014 [facility] [address] [id number] [address] [place] [address], [place] [address] Sep, 2014 [facility] [address] [id number] [address] [place] [address], [place] [address] Aug, [facility] [address] [id number] [address] [place] [address], [place] [address] Aug, [facility] [address] [id number] [address] [place] [address], [place] [address] Aug, [facility] [address] [id number] [address] [place] [address], [place] [address] Aug, [facility] [address] [id number] [address] [place] [address], [place] [address] Aug, [facility] [address] [id number] [address] [place] [address], [place] [address] Aug, [facility] [address] [id number] [address] [place] [address], [place] [address] Jul, [facility] [address] [id number] [address] [place] [address], [place] [address] Jul, [facility] [address] [id number] [address] [place] [address], [place] [address] Jul, [facility] [address] [id number] [address] [place] [address], [place] [address] Jul, [facility] [address] [id number] [address] [place] [address], [place] [address] Jul, [facility] [address] [id number] [address] [place] [address], [place] [address] Jun, [facility] [address] [id number] [address] [place] [address], [place] [address] Jun, [facility] [address] [id number] [address] [place] [address], [place] [address] Jun, [facility] [address] [id number] [address] [place] [address], [place] [address] Jun, [facility] [address] [id number] [address] [place] [address], [place] [address] Jun, [facility] [address] [id number] [address] [place] [address], [place] [address] Jun, [facility] [address] [id number] [address] [place] [address], [place] [address] May, [facility] [address] [id number] [address] [place] [address], [place] [address] May, [facility] [address] [id number] [address] [place] [address], [place] [address] May, [facility] [address] [id number] [address] [place] [address] May, [facility] [address] [id number] [address] [place] [address], [place] [address] May, [facility] [address] [id number] [address] [place] [address], [place] [address] May, [facility] [address] [id number] [address] [place] [address], [place] [address] May, [facility] [address] [id number] [address] [place] [address], [place] [address] May, [facility] [address] [id number] [address] [place] [address], [place] [address] May, [facility] [address] [id number] [address] [place] [address], [place] [address] Apr, [facility] [address] [id number] [address] [place] [address], [place] [address] Apr, [facility] [address] [id number] [address] [place] [address], [place] [address] Apr, [facility] [address] [id number] [address] [place] [address], [place] [address] Apr, [facility] [address] [id number] [address] [place] [address], [place] [address] Mar, [facility] [address] [id number] [address] [place] [address], [place] [address] Mar, [facility] [address] [id number] [address] [place] [address], [place] [address] Mar, [facility] [address] [id number] [address] [place] [address], [place] [address] Mar, [facility] [address] [id number] [address] [place] [address], [place] [address] Mar, [facility] [address] [id number] [address] [place] [address], [place] [address] Mar, [facility] [address] [id number] [address] [place] [address], [place] [address] Feb, [facility] [address] [id number] [address] [place] [address], [place] [address] Feb, [facility] [address] [id number] [address] [place] [address], [place] [address] Feb, [facility] [address] [id number] [address] [place] [address], [place] [address] Feb, [facility] [address] [id number] [facility] [place] [address] Feb, 2013 [facility] [address] [id number] [facility] [place] [address] Feb, [facility] [address] [id number] [address] [place] [address], [place] [address] Feb, 2013 [facility] [address] [id number] [address] [place] [address], [place] [address] Feb, 2013 [facility] [address] [id number] [address] [place] [address], [place] [address] Feb, 2013 [facility] [address] [id number] [address] [place] [address], [place] [address] Feb, [facility] [address] [id number] [address] [place] [address], [place] [address] Feb, [facility] [address] [id number] [address] [place] [address], [place] [address] Feb, [facility] [address] [id number] [address] [place] [address], [place] [address] Jan, [facility] [address] [id number] [address] [place] [address], [place] [address] Jan, [facility] [address] [id number] [address] [place] [address], [place] [address] Jan, [facility] [address] [id number] [address] [place] [address], [place] [address] Jan, [facility] [address] [id number] [address] [place] [address], [place] [address] Jan, [facility] [address] [id number] [address] [place] [address], [place] [address] Jan, [facility] [address] [id number] [address] [place] [address], [place] [address] Jan, [facility] [address] [id number] [address] [place] [address], [place] [address] Jan, [facility] [address] [id number] [address] [place] [address], [place] [address] Jan, [facility] [address] [id number] [address] [place] [address], [place] [address] Jan, [facility] [address] [id number] [address] [place] [address], [place] [address] Jan, [facility] [address] [id number] [address] [place] [address], [place] [address] Jan, [facility] [address] [id number] [address] [place] [address], [place] [address] Jan, [facility] [address] [id number] [address] [place] [address], [place] [address] Jan, [facility] [address] [id number] [address] [place] [address], [place] [address] Jan, [facility] [address] [id number] [address] [place] [address], [place] [address] Jan, [facility] [address] [id number] [address] [place] [address], [place] [address] Jan, [facility] [address] [id number] [address] [place] [address], [place] [address] December, [facility] [address] [id number] [address] [place] [address], [place] [address] December, [facility] [address] [id number] [address] [place] [address], [place] [address] December, [facility] [address] [id number] [address] [place] [address], [place] [address] December, [facility] [address] [id number] [address] [place] [address], [place] [address] December, [facility] [address] [id number] [address] [place] [address], [place] [address] December, [facility] [address] [id number] [address] [place] [address], [place] [address] Nov, [facility] [address] [id number] [address] [place] [address], [place] [address] Nov, [facility] [address] [id number] [address] [place] [address], [place] [address] Nov, [facility] [address] [id number] [address] [place] [address], [place] [address] Nov, [facility] [address] [id number] [address] [place] [address], [place] [address] Nov, [facility] [address] [id number] [address] [place] [address], [place] [address] Nov, [facility] [address] [id number] [address] [place] [address], [place] [address] Nov, [facility] [address] [id number] [address] [place] [address], [place] [address] Nov, [facility] [address] [id number] [address] [place] [address], [place] [address] Nov, [facility] [address] [id number] [address] [place] [address], [place] [address] Nov, [facility] [address] [id number] [address] [place] [address], [place] [address] Nov, [facility] [address] [id number] [address] [place] [address], [place] [address] Nov, [facility] [address] [id number] [address] [place] [address], [place] [address] Nov, [facility] [address] [id number] [address] [place] [address], [place] [address] Nov, [facility] [address] [id number] [address] [place] [address], [place] [address] Nov, [facility] [address] [id number] [address] [place] [address], [place] [address] Nov, [facility] [address] [id number] [address] [place] [address], [place] [address] Oct, [facility] [address] [id number] [address] [place] [address], [place] [address] Oct, [facility] [address] [id number] [address] [place] [address], [place] [address] Oct, [facility] [address] [id number] [address] [place] [address], [place] [address] Oct, [facility] [address] [id number] [address] [place] [address], [place] [address] Oct, [facility] [address] [id number] [address] [place] [address], [place] [address] Oct, [facility] [address] [id number] [address] [place] [address], [place] [address] Oct, [facility] [address] [id number] [address] [place] [address], [place] [address] Oct, [facility] [address] [id number] [address] [place] [address], [place] [address] Sep, [facility] [address] [id number] [address] [place] [address], [place] [address] Sep, [facility] [address] [id number] [address] [place] [address], [place] [address] Sep, [facility] [address] [id number] [address] [place] [address], [place] [address] Sep, [facility] [address] [id number] [address] [place] [address], [place] [address] Sep, [facility] [address] [id number] [address] [place] [address], [place] [address] Sep, [facility] [address] [id number] [address] [place] [address], [place] [address] Aug, [facility] [address] [id number] [address] [place] [address], [place] [address] Aug, [facility] [address] [id number] [address] [place] [address], [place] [address] Aug, [facility] [address] [id number] [address] [place] [address], [place] [address] Aug, [facility] [address] [id number] [address] [place] [address], [place] [address] Aug, [facility] [address] [id number] [address] [place] [address], [place] [address] Aug, [facility] [address] [id number] [address] [place] [address], [place] [address] Aug, [facility] [address] [id number] [address] [place] [address], [place] [address] Aug, [facility] [address] [id number] [address] [place] [address], [place] [address] Jul, [facility] [address] [id number] [address] [place] [address], [place] [address] Jul, [facility] [address] [id number] [address] [place] [address], [place] [address] Jul, [facility] [address] [id number] [address] [place] [address], [place] [address] Jul, [facility] [address] [id number] [address] [place] [address], [place] [address] Jul, [facility] [address] [id number] [address] [place] [address], [place] [address] Jul, [facility] [address] [id number] [address] [place] [address], [place] [address] Jul, [facility] [address] [id number] [address] [place] [address], [place] [address] Jul, [facility] [address] [id number] [address] [place] [address], [place] [address] Jul, [facility] [address] [id number] [address] [place] [address], [place] [address] 14 Jun, 2013 [facility] [address] [id number] [address] [place] [address], [place] [address] 14 Jun, 2013 [facility] [address] [id number] [address] [place] [address], [place] [address] Jun, [facility] [address] [id number] [address] [place] [address], [place] [address] Jun, [facility] [address] [id number] [address] [place] [address], [place] [address] Jun, [facility] [address] [id number] [address] [place] [address], [place] [address] Jun, [facility] [address] [id number] [address] [place] [address], [place] [address] 31 May, 2013 [facility] [address] [id number] [address] [place] [address], [place] [address] 31 May, 2013 [facility] [address] [id number] [address] [place] [address], [place] [address] 17 May, 2013 [facility] [address] [id number] [address] [place] [address], [place] [address] 17 May, 2013 [facility] [address] [id number] [address] [place] [address], [place] [address] 14 May, 2013 [facility] [address] [id number] [address] [place] [address], [place] [address] 14 May, 2013 [facility] [address] [id number] [address] [place] [address], [place] [address] 10 May, 2013 [facility] [address] [id number] [address] [place] [address], [place] [address] 10 May, 2013 [facility] [address] [id number] [address] [place] [id number] 07 May, 2013 [facility] [address] [id number] [address] [place] [id number] 20 Sep, 2012 [facility] [address] [id number] [address] [place] [address], [place] [address] 19 Sep, 2012 [facility] [address] [id number] [address] [place] [address], [place] [address] 12 Apr, 2012 [facility] [address] [id number] [address] [place] [address], [place] [address] 24 Sep, 2011 [facility] [address] [id number] [address] [place] [address], [place] [address] 21 Sep, 2011 [facility] [address] [id number] [address] [place] [address], [place] [address] 21 Apr, 2011 [facility] [address] [id number] [address] [place] [address], [place] [address] 14 Apr, 2011 [facility] [address] [id number] [address] [place] [address], [place] [address] 10 Apr, 2011 [facility] [address] [id number] [address] [place] [address], [place] [address] 06 Apr, 2011 [facility] [address] [id number] [address] [place] [address], [place] [address] 04 Apr, 2011 [facility] [address] [id number] [address] [place] [address], [place] [address] 31 Mar, 2012 [facility] [address] [id number] [address] [place] [address], [place] [address] 28 Mar, 2012 [facility] [address] [id number] [place] [address], [place] [address] 27 Mar, 2012 [facility] [address] [id number] [address] [place] [address], [place] [address] 10 Mar, 2012 [facility] [address] [id number] [address] [place] [address], [place] [address] 08 Mar, 2012 [facility] [address] [id number] [address] [place] [address], [place] [address] 03 Mar, 2012 [facility] [address] [id number] [address] [place] [address], [place] [address] Feb, [facility] [address] [id number] [address] [place] [address], [place] [address] Feb, [facility] [address] [id number] [address] [place] [address], [place] [address] Feb, [facility] [address] [id number] [address] [place] [address], [place] [address] Jan, [facility] [address] [id number] [address] [place] [address], [place] [address] Jan, [facility] [address] [id number] [address] [place] [address], [place] [address] Jan, [facility] [address] [id number] [address] [place] [address], [place] [address] Jan, [facility] [address] [id number] [address] [place] [address], [place] [address] Jan, [facility] [address] [id number] [address] [place] [address], [place] [address] Jan, [facility] [address] [id number] [address] [place] [address], [place] [address] Jan, [facility] [address] [id number] [address] [place] [address], [place] [address] Jan, [facility] [address] [id number] [address] [place] [address], [place] [address] December, [facility] [address] [id number] [address] [place] [address], [place] [address] December, [facility] [address] [id number] [address] [place] [address], [place] [address] December, [facility] [address] [id number] [address] [place] [address], [place] [address] December, [facility] [address] [id number] [address] [place] [address], [place] [address] December, [facility] [address] [id number] [address] [place] [address], [place] [address] December, [facility] [address] [id number] [address] [place] [address], [place] [address] 13 Nov, 2011 [facility] [address] [id number] [address] [place] [address], [place] [address] 13 Nov, 2011 [facility] [address] [id number] [address] [place] [address], [place] [address] Nov, [facility] [address] [id number] [address] [place] [address], [place] [address] Nov, [facility] [address] [id number] [address] [place] [address], [place] [address] Nov, [facility] [address] [id number] [address] [place] [address], [place] [address] Oct, [facility] [address] [id number] [address] [place] [address], [place] [address] 17 Sep, 2011 [facility] [address] [id number] [address] [place] [address], [place] [address] Aug, [facility] [address] [id number] [address] [place] [address], [place] [address] Aug, [facility] [address] [id number] [address] [place] [address], [place] [address] Aug, [facility] [address] [id number] [address] [place] [address], [place] [address] Aug, [facility] [address] [id number] [address] [place] [address], [place] [address] Aug, [facility] [address] [id number] [address] [place] [address], [place] [address] Jul, [facility] [address] [id number] [address] [place] [address], [place] [address] Jul, [facility] [address] [id number] [address] [place] [address], [place] [address] Jun, [facility] [address] [id number] [address] [place] [address], [place] [address] Jun, [facility] [address] [id number] [address] [place] [address], [place] [address] Jun, [facility] [address] [id number] [address] [place] [address], [place] [address] May, [facility] [address] [id number] [address] [place] [address], [place] [address] May, [facility] [address] [id number] [address] [place] [address], [place] [address] 16 Oct, 2010 [facility] [address] [id number] [address] [place] [address], [place] [address] Oct, [facility] [address] [id number] [address] [place] [address], [place] [address] 29 Jul, 2010 [facility] [address] [id number] [address] [place] [address], [place] [address] 08 Jul, 2010 [facility] [address] [id number] [address] [place] [address], [place] [address] Jul, [facility] [address] [id number] [address] [place] [address], [place] [address] Jul, [facility] [address] [id number] [address] [place] [address], [place] [address] Jul, [facility] [address] [id number] [address] [place] [address], [place] [address] Jun, [facility] [address] [id number] [address] [place] [address], [place] [address] Jun, [facility] [address] [id number] [address] [place] [address], [place] [address] Jun, [facility] [address] [id number] [address] [place] [address], [place] [address] May, [facility] [address] [facility] [id number] [address] [place] [address] 16 Mar, 2010 IMMUNIZATIONS No Known Immunizations [...]
--- OUTSIDE RECORDS SUMMARY | 2019-11-28 22:51 | XMS REPORT ---
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 Name Role Phone LAURIE LYLE Unavailable PROBLEMS Type Condition ICD9-CM Code TOI30-LC Code Onset Dates Condition S tatus SNOMED Code Problem COPD (chronic obstructive pulmonary disease) J44.9 Active 78088937 Problem Diabetes E11.9 Active 34989696 Problem Diabetic neuropathy E11.40 Active 968731394 Problem Arthritis M19.90 Active 5885880 ALLERGIES No Information ENCOUNTERS Encounter Location Date Diagnosis [facility] [address] [facility] [id number] [address] [place] [id number] December, [facility] [address] [id number] [address] [place] [id number] Aug, Arthritis M19.90 [facility] [address] [facility] [id number] [address] [place] [id number] Jul, [facility] [address] [facility] [id number] [address] [place] [id number] Jul, [facility] [address] [facility] [id number] [address] [place] [id number] Jul, [facility] [address] [id number] [address] [place] [id number] Jul, [facility] [address] [facility] [id number] [address] [place] [id number] Jul, Diabetes E11.9 ; Diabetic ne uropathy E11.40 ; Arthritis M19.90 and COPD (chronic obstructive pulmonary disease) J44.9 [facility] [address] [facility] [id number] [address] [place] [id number] Jul, [facility] [address] [id number] [address] [place] [address], [place] [address] 23 Jun, 2015 [facility] [address] [id number] [address] [place] [address], [place] [address] 23 Jun, 2015 [facility] [address] [id number] [address] [place] [address], [place] [address] 17 Jun, 2014 [facility] [address] [id number] [address] [place] [address], [place] [address] 10 Jun, 2014 [facility] [address] [id number] [address] [place] [address], [place] [address] 15 May, 2015 [facility] [address] [id number] [address] [place] [address], [place] [address] 13 May, 2015 [facility] [address] [id number] [address] [place] [address], [place] [address] 07 May, 2015 [facility] [address] [id number] [address] [place] [address], [place] [id number] 22 Sep, 2014 [facility] [address] [id number] [address] [place] [address], [place] [address] 21 Sep, 2014 [facility] [address] [id number] [address] [place] [address], [place] [address] 21 Sep, 2014 [facility] [address] [id number] [address] [place] [address], [place] [address] 15 Sep, 2014 [facility] [address] [id number] [address] [place] [address], [place] [id number] 11 Sep, 2014 [facility] [address] [id number] [address] [place] [address], [place] [address] 09 Sep, 2014 [facility] [address] [id number] [address] [place] [address], [place] [id number] 08 Sep, 2014 [facility] [address] [id number] [address] [place] [address], [place] [address] 03 Sep, 2014 [facility] [address] [id number] [address] [place] [address] [address] Apr, [facility] [address] [facility] [id number] [address] [place] [id number] Mar, [facility] [address] [facility] [id number] [address] [place] [id number] Mar, [facility] [address] [facility] [id number] [address] [place] [id number] Mar, [facility] [address] [facility] [id number] [address] [place] [id number] Mar, [facility] [address] [facility] [id number] [address] [place] [id number] Mar, [facility] [address] [facility] [id number] [address] [place] [id number] Mar, Diabetes mellitus 250.00 ; C OPD (chronic obstructive pulmonary disease) 496 ; Anxiety 300.00 and Arthritis 716.90 [facility] [address] [facility] [id number] [address] [place] [id number] Feb, [facility] [address] [facility] [id number] [address] [place] [id number] Feb, [facility] [address] [facility] [id number] [address] [place] [id number] Feb, [facility] [address] [facility] [id number] [address] [place] [id number] Feb, [facility] [address] [facility] [id number] [address] [place] [id number] Jan, Seborrheic keratosis 702.19 and Nevus 216.9 [facility] [address] [facility] [id number] [address] [place] [id number] Jan, [facility] [address] [facility] [id number] [address] [place] [id number] Jan, Routine gynecological examin ation V72.31 ; Breast cancer screening V76.10 ; Hot flashes 627.2 ; Atypical nevi 216.9 and Constipation 564.00 [facility] [address] [id number] [address] [place] [address], [place] [address] Jan, [facility] [address] [id number] [address] [place] [address], [place] [address] December, [facility] [address] [id number] [address] [place] [address], [place] [address] December, [facility] [address] [id number] [address] [place] [address], [place] [address] Nov, [facility] [address] [id number] [address] [place] [address], [place] [address] Nov, [facility] [address] [id number] [address] [place] [address], [place] [address] Oct, [facility] [address] [id number] [address] [place] [address], [place] [address] 23 Oct, 2014 [facility] [address] [id number] [address] [place] [address], [place] [address] 18 Oct, 2014 [facility] [address] [id number] [address] [place] [address], [place] [address] 18 Oct, 2014 [facility] [address] [id number] [address] [place] [address], [place] [address] 17 Oct, 2014 [facility] [address] [id number] [address] [place] [address], [place] [address] 17 Oct, 2014 [facility] [address] [id number] [address] [place] [id number] 16 Oct, 2014 [facility] [address] [id number] [address] [place] [address], [place] [address] 16 Oct, 2014 [facility] [address] [id number] [address] [place] [address], [place] [address] 11 Oct, 2014 [facility] [address] [id number] [address] [place] [address], [place] [address] 11 Oct, 2014 [facility] [address] [id number] [address] [place] [address], [place] [address] Sep, 2014 [facility] [address] [id number] [address] [place] [address], [place] [address] Sep, 2014 [facility] [address] [id number] [address] [place] [address], [place] [address] 19 Sep, 2014 [facility] [address] [id number] [address] [place] [address], [place] [address] 18 Sep, 2014 [facility] [address] [id number] [address] [place] [address], [place] [address] Sep, 2014 [facility] [address] [id number] [address] [place] [address], [place] [id number] Sep, 2014 [facility] [address] [id number] [address] [place] [address], [place] [address] Sep, 2014 [facility] [address] [id number] [address] [place] [address], [place] [address] Aug, [facility] [address] [id number] [address] [place] [address], [place] [address] Aug, [facility] [address] [id number] [address] [place] [address], [place] [address] Aug, [facility] [address] [id number] [address] [place] [address], [place] [address] Aug, [facility] [address] [id number] [address] [place] [address], [place] [address] Aug, [facility] [address] [id number] [address] [place] [address], [place] [address] Aug, [facility] [address] [id number] [address] [place] [address], [place] [address] Jul, [facility] [address] [id number] [address] [place] [address], [place] [address] Jul, [facility] [address] [id number] [address] [place] [address], [place] [address] Jul, [facility] [address] [id number] [address] [place] [address], [place] [address] Jul, [facility] [address] [id number] [address] [place] [address], [place] [address] Jul, [facility] [address] [id number] [address] [place] [address], [place] [address] Jun, [facility] [address] [id number] [address] [place] [address], [place] [address] Jun, [facility] [address] [id number] [address] [place] [address], [place] [address] Jun, [facility] [address] [id number] [address] [place] [address], [place] [address] Jun, [facility] [address] [id number] [address] [place] [address], [place] [address] Jun, [facility] [address] [id number] [address] [place] [address], [place] [address] Jun, [facility] [address] [id number] [address] [place] [address], [place] [address] May, [facility] [address] [id number] [address] [place] [address], [place] [address] May, [facility] [address] [id number] [address] [place] [address], [place] [address] May, [facility] [address] [id number] [address] [place] [id number] May, [facility] [address] [id number] [address] [place] [address], [place] [address] May, [facility] [address] [id number] [address] [place] [address], [place] [address] May, [facility] [address] [id number] [address] [place] [address], [place] [address] May, [facility] [address] [id number] [address] [place] [address], [place] [address] May, [facility] [address] [id number] [address] [place] [address], [place] [address] May, [facility] [address] [id number] [address] [place] [address], [place] [address] Apr, [facility] [address] [id number] [address] [place] [address], [place] [address] Apr, [facility] [address] [id number] [address] [place] [address], [place] [address] Apr, [facility] [address] [id number] [address] [place] [address], [place] [address] Apr, [facility] [address] [id number] [address] [place] [address], [place] [address] Mar, [facility] [address] [id number] [address] [place] [address], [place] [address] Mar, [facility] [address] [id number] [address] [place] [address], [place] [address] Mar, [facility] [address] [id number] [address] [place] [address], [place] [address] Mar, [facility] [address] [id number] [address] [place] [address], [place] [address] Mar, [facility] [address] [id number] [address] [place] [address], [place] [address] Mar, [facility] [address] [id number] [address] [place] [address], [place] [address] Feb, [facility] [address] [id number] [address] [place] [address], [place] [address] Feb, [facility] [address] [id number] [address] [place] [address], [place] [address] Feb, [facility] [address] [id number] [address] [place] [address], [place] [address] Feb, [facility] [address] [id number] [facility] [place] [address] Feb, 2013 [facility] [address] [id number] [facility] [place] [address] Feb, [facility] [address] [id number] [address] [place] [address], [place] [address] Feb, 2013 [facility] [address] [id number] [address] [place] [address], [place] [address] Feb, 2013 [facility] [address] [id number] [address] [place] [address], [place] [address] Feb, 2013 [facility] [address] [id number] [address] [place] [address], [place] [address] Feb, [facility] [address] [id number] [address] [place] [address], [place] [address] Feb, [facility] [address] [id number] [address] [place] [address], [place] [address] Feb, [facility] [address] [id number] [address] [place] [address], [place] [address] Jan, [facility] [address] [id number] [address] [place] [address], [place] [address] Jan, [facility] [address] [id number] [address] [place] [address], [place] [address] Jan, [facility] [address] [id number] [address] [place] [address], [place] [address] Jan, [facility] [address] [id number] [address] [place] [address], [place] [address] Jan, [facility] [address] [id number] [address] [place] [address], [place] [address] Jan, [facility] [address] [id number] [address] [place] [address], [place] [address] Jan, [facility] [address] [id number] [address] [place] [address], [place] [address] Jan, [facility] [address] [id number] [address] [place] [address], [place] [address] Jan, [facility] [address] [id number] [address] [place] [address], [place] [address] Jan, [facility] [address] [id number] [address] [place] [address], [place] [address] Jan, [facility] [address] [id number] [address] [place] [address], [place] [address] Jan, [facility] [address] [id number] [address] [place] [address], [place] [address] Jan, [facility] [address] [id number] [address] [place] [address], [place] [address] Jan, [facility] [address] [id number] [address] [place] [address], [place] [address] Jan, [facility] [address] [id number] [address] [place] [address], [place] [address] Jan, [facility] [address] [id number] [address] [place] [address], [place] [address] Jan, [facility] [address] [id number] [address] [place] [address], [place] [address] December, [facility] [address] [id number] [address] [place] [address], [place] [address] December, [facility] [address] [id number] [address] [place] [address], [place] [address] December, [facility] [address] [id number] [address] [place] [address], [place] [address] December, [facility] [address] [id number] [address] [place] [address], [place] [address] December, [facility] [address] [id number] [address] [place] [address], [place] [address] December, [facility] [address] [id number] [address] [place] [address], [place] [address] Nov, [facility] [address] [id number] [address] [place] [address], [place] [address] Nov, [facility] [address] [id number] [address] [place] [address], [place] [address] Nov, [facility] [address] [id number] [address] [place] [address], [place] [address] Nov, [facility] [address] [id number] [address] [place] [address], [place] [address] Nov, [facility] [address] [id number] [address] [place] [address], [place] [address] Nov, [facility] [address] [id number] [address] [place] [address], [place] [address] Nov, [facility] [address] [id number] [address] [place] [address], [place] [address] Nov, [facility] [address] [id number] [address] [place] [address], [place] [address] Nov, [facility] [address] [id number] [address] [place] [address], [place] [address] Nov, [facility] [address] [id number] [address] [place] [address], [place] [address] Nov, [facility] [address] [id number] [address] [place] [address], [place] [address] Nov, [facility] [address] [id number] [address] [place] [address], [place] [address] Nov, [facility] [address] [id number] [address] [place] [address], [place] [address] Nov, [facility] [address] [id number] [address] [place] [address], [place] [address] Nov, [facility] [address] [id number] [address] [place] [address], [place] [address] Nov, [facility] [address] [id number] [address] [place] [address], [place] [address] Oct, [facility] [address] [id number] [address] [place] [address], [place] [id number] Oct, [facility] [address] [id number] [address] [place] [address], [place] [id number] Oct, [facility] [address] [id number] [address] [place] [address], [place] [id number] Oct, [facility] [address] [id number] [address] [place] [address], [place] [id number] Oct, [facility] [address] [id number] [address] [place] [address], [place] [id number] Oct, [facility] [address] [id number] [address] [place] [address], [place] [id number] Oct, [facility] [address] [id number] [address] [place] [address], [place] [id number] Oct, [facility] [address] [id number] [address] [place] [address], [place] [id number] Sep, [facility] [address] [id number] [address] [place] [address], [place] [id number] Sep, [facility] [address] [id number] [address] [place] [address], [place] [id number] Sep, [facility] [address] [id number] [address] [place] [address], [place] [id number] Sep, [facility] [address] [id number] [address] [place] [address], [place] [id number] Sep, [facility] [address] [id number] [address] [place] [address], [place] [id number] Sep, [facility] [address] [id number] [address] [place] [address], [place] [id number] Aug, [facility] [address] [id number] [address] [place] [address], [place] [id number] Aug, [facility] [address] [id number] [address] [place] [address], [place] [id number] Aug, [facility] [address] [id number] [address] [place] [address], [place] [id number] Aug, [facility] [address] [id number] [address] [place] [address], [place] [id number] Aug, [facility] [address] [id number] [address] [place] [address], [place] [id number] Aug, [facility] [address] [id number] [address] [place] [address], [place] [id number] Aug, [facility] [address] [id number] [address] [place] [address], [place] [id number] Aug, [facility] [address] [id number] [address] [place] [address], [place] [id number] Jul, [facility] [address] [id number] [address] [place] [address], [place] [id number] Jul, [facility] [address] [id number] [address] [place] [address], [place] [id number] Jul, [facility] [address] [id number] [address] [place] [address], [place] [id number] Jul, [facility] [address] [id number] [address] [place] [address], [place] [id number] Jul, [facility] [address] [id number] [address] [place] [address], [place] [id number] Jul, [facility] [address] [id number] [address] [place] [address], [place] [id number] Jul, [facility] [address] [id number] [address] [place] [address], [place] [id number] Jul, [facility] [address] [id number] [address] [place] [address], [place] [id number] Jul, [facility] [address] [id number] [address] [place] [address], [place] [id number] 14 Jun, 2013 [facility] [address] [id number] [address] [place] [address], [place] [id number] 14 Jun, 2013 [facility] [address] [id number] [address] [place] [address], [place] [id number] Jun, [facility] [address] [id number] [address] [place] [address], [place] [id number] Jun, [facility] [address] [id number] [address] [place] [address], [place] [id number] Jun, [facility] [address] [id number] [address] [place] [address], [place] [id number] Jun, [facility] [address] [id number] [address] [place] [address], [place] [id number] 31 May, 2013 [facility] [address] [id number] [address] [place] [address], [place] [id number] 31 May, 2013 [facility] [address] [id number] [address] [place] [address], [place] [id number] 17 May, 2013 [facility] [address] [id number] [address] [place] [address], [place] [id number] 17 May, 2013 [facility] [address] [id number] [address] [place] [address], [place] [id number] 14 May, 2013 [facility] [address] [id number] [address] [place] [address], [place] [id number] 14 May, 2013 [facility] [address] [id number] [address] [place] [address], [place] [id number] 10 May, 2013 [facility] [address] [id number] [address] [place] [address], [place] [id number] 10 May, 2013 [facility] [address] [id number] [address] [place] [id number] 07 May, 2013 [facility] [address] [id number] [address] [place] [id number] 20 Sep, 2012 [facility] [address] [id number] [address] [place] [address], [place] [id number] 19 Sep, 2012 [facility] [address] [id number] [address] [place] [address], [place] [id number] 12 Apr, 2012 [facility] [address] [id number] [address] [place] [address], [place] [id number] 24 Sep, 2011 [facility] [address] [id number] [address] [place] [address], [place] [id number] 21 Sep, 2011 [facility] [address] [id number] [address] [place] [address], [place] [id number] 21 Apr, 2011 [facility] [address] [id number] [address] [place] [address], [place] [id number] 14 Apr, 2011 [facility] [address] [id number] [address] [place] [address], [place] [id number] 10 Apr, 2011 [facility] [address] [id number] [address] [place] [address], [place] [id number] 06 Apr, 2011 [facility] [address] [id number] [address] [place] [address], [place] [id number] 04 Apr, 2011 [facility] [address] [id number] [address] [place] [address], [place] [id number] 31 Mar, 2012 [facility] [address] [id number] [address] [place] [address], [place] [id number] 28 Mar, 2012 [facility] [address] [id number] [address] [place] [address], [place] [id number] 27 Mar, 2012 [facility] [address] [id number] [address] [place] [address], [place] [id number] 10 Mar, 2012 [facility] [address] [id number] [address] [place] [address], [place] [id number] 08 Mar, 2012 [facility] [address] [id number] [address] [place] [address], [place] [id number] 03 Mar, 2012 [facility] [address] [id number] [address] [place] [address], [place] [id number] Feb, [facility] [address] [id number] [address] [place] [address], [place] [id number] Feb, [facility] [address] [id number] [address] [place] [address], [place] [id number] Feb, [facility] [address] [id number] [address] [place] [address], [place] [id number] Jan, [facility] [address] [id number] [address] [place] [address], [place] [id number] Jan, [facility] [address] [id number] [address] [place] [address], [place] [id number] Jan, [facility] [address] [id number] [address] [place] [address], [place] [id number] Jan, [facility] [address] [id number] [address] [place] [address], [place] [id number] Jan, [facility] [address] [id number] [address] [place] [address], [place] [id number] Jan, [facility] [address] [id number] [address] [place] [address], [place] [id number] Jan, [facility] [address] [id number] [address] [place] [address], [place] [id number] Jan, [facility] [address] [id number] [address] [place] [address], [place] [id number] December, [facility] [address] [id number] [address] [place] [address], [place] [id number] December, [facility] [address] [id number] [address] [place] [address], [place] [id number] December, [facility] [address] [id number] [address] [place] [address], [place] [id number] December, [facility] [address] [id number] [address] [place] [address], [place] [id number] December, [facility] [address] [id number] [address] [place] [address], [place] [id number] December, [facility] [address] [id number] [address] [place] [address], [place] [id number] 13 Nov, 2011 [facility] [address] [id number] [address] [place] [address], [place] [id number] 13 Nov, 2011 [facility] [address] [id number] [address] [place] [address], [place] [id number] Nov, [facility] [address] [id number] [address] [place] [address], [place] [id number] Nov, [facility] [address] [id number] [address] [place] [address], [place] [id number] Nov, [facility] [address] [id number] [address] [place] [address], [place] [id number] Oct, [facility] [address] [id number] [address] [place] [address], [place] [id number] 17 Sep, 2011 [facility] [address] [id number] [address] [place] [address], [place] [id number] Aug, [facility] [address] [id number] [address] [place] [address], [place] [id number] Aug, [facility] [address] [id number] [address] [place] [address], [place] [id number] Aug, [facility] [address] [id number] [address] [place] [address], [place] [id number] Aug, [facility] [address] [id number] [address] [place] [address], [place] [id number] Aug, [facility] [address] [id number] [address] [place] [address], [place] [id number] Jul, [facility] [address] [id number] [address] [place] [address], [place] [id number] Jul, [facility] [address] [id number] [address] [place] [address], [place] [id number] Jun, [facility] [address] [id number] [address] [place] [address], [place] [id number] Jun, [facility] [address] [id number] [address] [place] [address], [place] [id number] Jun, [facility] [address] [id number] [address] [place] [address], [place] [id number] May, [facility] [address] [id number] [address] [place] [address], [place] [id number] May, [facility] [address] [id number] [address] [place] [address], [place] [id number] 16 Oct, 2010 [facility] [address] [id number] [address] [place] [address], [place] [id number] Oct, [facility] [address] [id number] [address] [place] [address], [place] [id number] 29 Jul, 2010 [facility] [address] [id number] [address] [place] [address], [place] [id number] 08 Jul, 2010 [facility] [address] [id number] [address] [place] [address], [place] [id number] Jul, [facility] [address] [id number] [address] [place] [address], [place] [id number] Jul, [facility] [address] [id number] [address] [place] [address], [place] [id number] Jul, [facility] [address] [id number] [address] [place] [address], [place] [id number] Jun, [facility] [address] [id number] [address] [place] [address], [place] [id number] Jun, [facility] [address] [id number] [address] [place] [address], [place] [id number] Jun, [facility] [address] [id number] [address] [place] [address], [place] [id number] May, [facility] [address] [facility] [id number] [address] [place] [address] 16 Mar, 2010 IMMUNIZATIONS No Known Immunizations [...]
--- OUTSIDE RECORDS SUMMARY | 2019-11-28 22:51 | XMS REPORT ---
Author Author Caren LYLE Organization [facility] Address [address] [place] [address] Care Team Providers [facility] [employer] Driver Name Role Phone LAURIE LYLE Unavailable PROBLEMS Type Condition ICD9-CM Code [id number] Code Onset Dates Condition S tatus SNOMED Code Problem COPD (chronic obstructive pulmonary disease) J44.9 Active 71012431 Problem Diabetes E11.9 Active 55677118 Problem Diabetic neuropathy E11.40 Active 246226711 Problem Arthritis M19.90 Active 5684941 ALLERGIES No Information ENCOUNTERS Encounter Location Date Diagnosis [facility] [address] [facility] [id number] [address] [place] [address] December, [facility] [address] [id number] [address] [place] [address] Aug, Arthritis M19.90 [facility] [address] [facility] [id number] [address] [place] [address] Jul, [facility] [address] [facility] [id number] [address] [place] [address] Jul, [facility] [address] [facility] [id number] [address] [place] [address] Jul, [facility] [address] [id number] [address] [place] [address] Jul, [facility] [address] [facility] [id number] [address] [place] [address] Jul, Diabetes E11.9 ; Diabetic ne uropathy E11.40 ; Arthritis M19.90 and COPD (chronic obstructive pulmonary disease) J44.9 [facility] [address] [facility] [id number] [address] [place] [address] Jul, [facility] [address] [id number] [address] [place] [address], [place] [address] 23 Jun, 2015 [facility] [address] [id number] [address] [place] [address], [place] [address] 23 Jun, 2015 [facility] [address] [id number] [address] [place] [address], [place] [address] 17 Jun, 2014 [facility] [address] [id number] [address] [place] [address], [place] [address] 10 Jun, 2014 [facility] [address] [id number] [address] [place] [address], [place] [address] 15 May, 2015 [facility] [address] [id number] [address] [place] [address], [place] [address] 13 May, 2015 [facility] [address] [id number] [address] [place] [address], [place] [address] 07 May, 2015 [facility] [address] [id number] [address] [place] [address], [place] [address] 22 Sep, 2014 [facility] [address] [id number] [address] [place] [address], [place] [address] 21 Sep, 2014 [facility] [address] [id number] [address] [place] [address], [place] [address] 21 Sep, 2014 [facility] [address] [id number] [address] [place] [address], [place] [address] 15 Sep, 2014 [facility] [address] [id number] [address] [place] [address], [place] [address] 11 Sep, 2014 [facility] [address] [id number] [address] [place] [address], [place] [address] 09 Sep, 2014 [facility] [address] [id number] [address] [place] [address], [place] [address] 08 Sep, 2014 [facility] [address] [id number] [address] [place] [address], [place] [address] 03 Sep, 2014 [facility] [address] [id number] [address] [place] [address] [address] Apr, [facility] [address] [facility] [id number] [address] [place] [address] Mar, [facility] [address] [facility] [id number] [address] [place] [address] Mar, [facility] [address] [facility] [id number] [address] [place] [address] Mar, [facility] [address] [facility] [id number] [address] [place] [address] Mar, [facility] [address] [facility] [id number] [address] [place] [address] Mar, [facility] [address] [facility] [id number] [address] [place] [address] Mar, Diabetes mellitus 250.00 ; C OPD (chronic obstructive pulmonary disease) 496 ; Anxiety 300.00 and Arthritis 716.90 [facility] [address] [facility] [id number] [address] [place] [address] Feb, [facility] [address] [facility] [id number] [address] [place] [address] Feb, [facility] [address] [facility] [id number] [address] [place] [address] Feb, [facility] [address] [facility] [id number] [address] [place] [address] Feb, [facility] [address] [facility] [id number] [address] [place] [address] Jan, Seborrheic keratosis 702.19 and Nevus 216.9 [facility] [address] [facility] [id number] [address] [place] [address] Jan, [facility] [address] [facility] [id number] [address] [place] [address] Jan, Routine gynecological examin ation V72.31 ; Breast cancer screening V76.10 ; Hot flashes 627.2 ; Atypical nevi 216.9 and Constipation 564.00 [facility] [address] [id number] [address] [place] [address], [place] [address] Jan, [facility] [address] [id number] [address] [place] [address], [place] [address] December, [facility] [address] [id number] [address] [place] [address], [place] [address] December, [facility] [address] [id number] [address] [place] [address], [place] [address] Nov, [facility] [address] [id number] [address] [place] [address], [place] [address] Nov, [facility] [address] [id number] [address] [place] [address], [place] [address] Oct, [facility] [address] [id number] [address] [place] [address], [place] [address] 23 Oct, 2014 [facility] [address] [id number] [address] [place] [address], [place] [address] 18 Oct, 2014 [facility] [address] [id number] [address] [place] [address], [place] [address] 18 Oct, 2014 [facility] [address] [id number] [address] [place] [address], [place] [address] 17 Oct, 2014 [facility] [address] [id number] [address] [place] [address], [place] [address] 17 Oct, 2014 [facility] [address] [id number] [address] [place] [address] 16 Oct, 2014 [facility] [address] [id number] [address] [place] [address], [place] [address] 16 Oct, 2014 [facility] [address] [id number] [address] [place] [address], [place] [address] 11 Oct, 2014 [facility] [address] [id number] [address] [place] [address], [place] [address] 11 Oct, 2014 [facility] [address] [id number] [address] [place] [address], [place] [address] Sep, 2014 [facility] [address] [id number] [address] [place] [address], [place] [address] Sep, 2014 [facility] [address] [id number] [address] [place] [address], [place] [address] 19 Sep, 2014 [facility] [address] [id number] [address] [place] [address], [place] [address] 18 Sep, 2014 [facility] [address] [id number] [address] [place] [address], [place] [address] Sep, 2014 [facility] [address] [id number] [address] [place] [address], [place] [address] Sep, 2014 [facility] [address] [id number] [address] [place] [address], [place] [address] Sep, 2014 [facility] [address] [id number] [address] [place] [address], [place] [address] Aug, [facility] [address] [id number] [address] [place] [address], [place] [address] Aug, [facility] [address] [id number] [address] [place] [address], [place] [address] Aug, [facility] [address] [id number] [address] [place] [address], [place] [address] Aug, [facility] [address] [id number] [address] [place] [address], [place] [address] Aug, [facility] [address] [id number] [address] [place] [address], [place] [address] Aug, [facility] [address] [id number] [address] [place] [address], [place] [address] Jul, [facility] [address] [id number] [address] [place] [address], [place] [address] Jul, [facility] [address] [id number] [address] [place] [address], [place] [address] Jul, [facility] [address] [id number] [address] [place] [address], [place] [address] Jul, [facility] [address] [id number] [address] [place] [address], [place] [address] Jul, [facility] [address] [id number] [address] [place] [address], [place] [address] Jun, [facility] [address] [id number] [address] [place] [address], [place] [address] Jun, [facility] [address] [id number] [address] [place] [address], [place] [address] Jun, [facility] [address] [id number] [address] [place] [address], [place] [address] Jun, [facility] [address] [id number] [address] [place] [address], [place] [address] Jun, [facility] [address] [id number] [address] [place] [address], [place] [address] Jun, [facility] [address] [id number] [address] [place] [address], [place] [address] May, [facility] [address] [id number] [address] [place] [address], [place] [address] May, [facility] [address] [id number] [address] [place] [address], [place] [address] May, [facility] [address] [id number] [address] [place] [address] May, [facility] [address] [id number] [address] [place] [address], [place] [address] May, [facility] [address] [id number] [address] [place] [address], [place] [address] May, [facility] [address] [id number] [address] [place] [address], [place] [address] May, [facility] [address] [id number] [address] [place] [address], [place] [address] May, [facility] [address] [id number] [address] [place] [address], [place] [address] May, [facility] [address] [id number] [address] [place] [address], [place] [address] Apr, [facility] [address] [id number] [address] [place] [address], [place] [address] Apr, [facility] [address] [id number] [address] [place] [address], [place] [address] Apr, [facility] [address] [id number] [address] [place] [address], [place] [address] Apr, [facility] [address] [id number] [address] [place] [address], [place] [address] Mar, [facility] [address] [id number] [address] [place] [address], [place] [address] Mar, [facility] [address] [id number] [address] [place] [address], [place] [address] Mar, [facility] [address] [id number] [address] [place] [address], [place] [address] Mar, [facility] [address] [id number] [address] [place] [address], [place] [address] Mar, [facility] [address] [id number] [address] [place] [address], [place] [address] Mar, [facility] [address] [id number] [address] [place] [address], [place] [address] Feb, [facility] [address] [id number] [address] [place] [address], [place] [address] Feb, [facility] [address] [id number] [address] [place] [address], [place] [address] Feb, [facility] [address] [id number] [address] [place] [address], [place] [address] Feb, [facility] [address] [id number] [facility] [place] [address] Feb, 2013 [facility] [address] [id number] [facility] [place] [address] Feb, [facility] [address] [id number] [address] [place] [address], [place] [address] Feb, 2013 [facility] [address] [id number] [address] [place] [address], [place] [address] Feb, 2013 [facility] [address] [id number] [address] [place] [address], [place] [address] Feb, 2013 [facility] [address] [id number] [address] [place] [address], [place] [address] Feb, [facility] [address] [id number] [address] [place] [address], [place] [address] Feb, [facility] [address] [id number] [address] [place] [address], [place] [address] Feb, [facility] [address] [id number] [address] [place] [address], [place] [address] Jan, [facility] [address] [id number] [address] [place] [address], [place] [address] Jan, [facility] [address] [id number] [address] [place] [address], [place] [address] Jan, [facility] [address] [id number] [address] [place] [address], [place] [address] Jan, [facility] [address] [id number] [address] [place] [address], [place] [address] Jan, [facility] [address] [id number] [address] [place] [address], [place] [address] Jan, [facility] [address] [id number] [address] [place] [address], [place] [address] Jan, [facility] [address] [id number] [address] [place] [address], [place] [address] Jan, [facility] [address] [id number] [address] [place] [address], [place] [address] Jan, [facility] [address] [id number] [address] [place] [address], [place] [address] Jan, [facility] [address] [id number] [address] [place] [address], [place] [address] Jan, [facility] [address] [id number] [address] [place] [address], [place] [address] Jan, [facility] [address] [id number] [address] [place] [address], [place] [address] Jan, [facility] [address] [id number] [address] [place] [address], [place] [address] Jan, [facility] [address] [id number] [address] [place] [address], [place] [address] Jan, [facility] [address] [id number] [address] [place] [address], [place] [address] Jan, [facility] [address] [id number] [address] [place] [address], [place] [address] Jan, [facility] [address] [id number] [address] [place] [address], [place] [address] December, [facility] [address] [id number] [address] [place] [address], [place] [address] December, [facility] [address] [id number] [address] [place] [address], [place] [address] December, [facility] [address] [id number] [address] [place] [address], [place] [address] December, [facility] [address] [id number] [address] [place] [address], [place] [address] December, [facility] [address] [id number] [address] [place] [address], [place] [address] December, [facility] [address] [id number] [address] [place] [address], [place] [address] Nov, [facility] [address] [id number] [address] [place] [address], [place] [address] Nov, [facility] [address] [id number] [address] [place] [address], [place] [address] Nov, [facility] [address] [id number] [address] [place] [address], [place] [address] Nov, [facility] [address] [id number] [address] [place] [address], [place] [address] Nov, [facility] [address] [id number] [address] [place] [address], [place] [address] Nov, [facility] [address] [id number] [address] [place] [address], [place] [address] Nov, [facility] [address] [id number] [address] [place] [address], [place] [address] Nov, [facility] [address] [id number] [address] [place] [address], [place] [address] Nov, [facility] [address] [id number] [address] [place] [address], [place] [address] Nov, [facility] [address] [id number] [address] [place] [address], [place] [address] Nov, [facility] [address] [id number] [address] [place] [address], [place] [address] Nov, [facility] [address] [id number] [address] [place] [address], [place] [address] Nov, [facility] [address] [id number] [address] [place] [address], [place] [address] Nov, [facility] [address] [id number] [address] [place] [address], [place] [address] Nov, [facility] [address] [id number] [address] [place] [address], [place] [address] Nov, [facility] [address] [id number] [address] [place] [address], [place] [address] Oct, [facility] [address] [id number] [address] [place] [address], [place] [address] Oct, [facility] [address] [id number] [address] [place] [address], [place] [address] Oct, [facility] [address] [id number] [address] [place] [address], [place] [address] Oct, [facility] [address] [id number] [address] [place] [address], [place] [address] Oct, [facility] [address] [id number] [address] [place] [address], [place] [address] Oct, [facility] [address] [id number] [address] [place] [address], [place] [address] Oct, [facility] [address] [id number] [address] [place] [address], [place] [address] Oct, [facility] [address] [id number] [address] [place] [address], [place] [address] Sep, [facility] [address] [id number] [address] [place] [address], [place] [address] Sep, [facility] [address] [id number] [address] [place] [address], [place] [address] Sep, [facility] [address] [id number] [address] [place] [address], [place] [address] Sep, [facility] [address] [id number] [address] [place] [address], [place] [address] Sep, [facility] [address] [id number] [address] [place] [address], [place] [address] Sep, [facility] [address] [id number] [address] [place] [address], [place] [address] Aug, [facility] [address] [id number] [address] [place] [address], [place] [address] Aug, [facility] [address] [id number] [address] [place] [address], [place] [address] Aug, [facility] [address] [id number] [address] [place] [address], [place] [address] Aug, [facility] [address] [id number] [address] [place] [address], [place] [address] Aug, [facility] [address] [id number] [address] [place] [address], [place] [address] Aug, [facility] [address] [id number] [address] [place] [address], [place] [address] Aug, [facility] [address] [id number] [address] [place] [address], [place] [address] Aug, [facility] [address] [id number] [address] [place] [address], [place] [address] Jul, [facility] [address] [id number] [address] [place] [address], [place] [address] Jul, [facility] [address] [id number] [address] [place] [address], [place] [address] Jul, [facility] [address] [id number] [address] [place] [address], [place] [address] Jul, [facility] [address] [id number] [address] [place] [address], [place] [address] Jul, [facility] [address] [id number] [address] [place] [address], [place] [address] Jul, [facility] [address] [id number] [address] [place] [address], [place] [address] Jul, [facility] [address] [id number] [address] [place] [address], [place] [address] Jul, [facility] [address] [id number] [address] [place] [address], [place] [address] Jul, [facility] [address] [id number] [address] [place] [address], [place] [address] 14 Jun, 2013 [facility] [address] [id number] [address] [place] [address], [place] [address] 14 Jun, 2013 [facility] [address] [id number] [address] [place] [address], [place] [address] Jun, [facility] [address] [id number] [address] [place] [address], [place] [address] Jun, [facility] [address] [id number] [address] [place] [address], [place] [address] Jun, [facility] [address] [id number] [address] [place] [address], [place] [address] Jun, [facility] [address] [id number] [address] [place] [address], [place] [address] 31 May, 2013 [facility] [address] [id number] [address] [place] [address], [place] [address] 31 May, 2013 [facility] [address] [id number] [address] [place] [address], [place] [address] 17 May, 2013 [facility] [address] [id number] [address] [place] [address], [place] [address] 17 May, 2013 [facility] [address] [id number] [address] [place] [address], [place] [address] 14 May, 2013 [facility] [address] [id number] [address] [place] [address], [place] [address] 14 May, 2013 [facility] [address] [id number] [address] [place] [address], [place] [address] 10 May, 2013 [facility] [address] [id number] [address] [place] [address], [place] [address] 10 May, 2013 [facility] [address] [address] [id number] [address] [place] [id number] 07 May, 2013 [facility] [address] [id number] [address] [place] [id number] 20 Sep, 2012 [facility] [address] [id number] [address] [place] [address], [place] [address] 19 Sep, 2012 [facility] [address] [id number] [address] [place] [address], [place] [address] 12 Apr, 2012 [facility] [address] [id number] [address] [place] [address], [place] [address] 24 Sep, 2011 [facility] [address] [id number] [address] [place] [address], [place] [address] 21 Sep, 2011 [facility] [address] [id number] [address] [place] [address], [place] [address] 21 Apr, 2011 [facility] [address] [id number] [address] [place] [address], [place] [address] 14 Apr, 2011 [facility] [address] [id number] [address] [place] [address], [place] [address] 10 Apr, 2011 [facility] [address] [id number] [address] [place] [address], [place] [address] 06 Apr, 2011 [facility] [address] [id number] [address] [place] [address], [place] [address] 04 Apr, 2011 [facility] [address] [id number] [address] [place] [address], [place] [address] 31 Mar, 2012 [facility] [address] [id number] [address] [place] [address], [place] [address] 28 Mar, 2012 [facility] [address] [id number] [address] [place] [address], [place] [address] 27 Mar, 2012 [facility] [address] [id number] [address] [place] [address], [place] [address] 10 Mar, 2012 [facility] [address] [id number] [address] [place] [address], [place] [address] 08 Mar, 2012 [facility] [address] [id number] [address] [place] [address], [place] [address] 03 Mar, 2012 [facility] [address] [id number] [address] [place] [address], [place] [address] Feb, [facility] [address] [id number] [address] [place] [address], [place] [address] Feb, [facility] [address] [id number] [address] [place] [address], [place] [address] Feb, [facility] [address] [id number] [address] [place] [address], [place] [address] Jan, [facility] [address] [id number] [address] [place] [address], [place] [address] Jan, [facility] [address] [id number] [address] [place] [address], [place] [address] Jan, [facility] [address] [id number] [address] [place] [address], [place] [address] Jan, [facility] [address] [id number] [address] [place] [address], [place] [address] Jan, [facility] [address] [id number] [address] [place] [address], [place] [address] Jan, [facility] [address] [id number] [address] [place] [address], [place] [address] Jan, [facility] [address] [id number] [address] [place] [address], [place] [address] Jan, [facility] [address] [id number] [address] [place] [address], [place] [address] December, [facility] [address] [id number] [address] [place] [address], [place] [address] December, [facility] [address] [id number] [address] [place] [address], [place] [address] December, [facility] [address] [id number] [address] [place] [address], [place] [address] December, [facility] [address] [id number] [address] [place] [address], [place] [address] December, [facility] [address] [id number] [address] [place] [address], [place] [address] December, [facility] [address] [id number] [address] [place] [address], [place] [address] 13 Nov, 2011 [facility] [address] [id number] [address] [place] [address], [place] [address] 13 Nov, 2011 [facility] [address] [id number] [address] [place] [address], [place] [address] Nov, [facility] [address] [id number] [address] [place] [address], [place] [address] Nov, [facility] [address] [id number] [address] [place] [address], [place] [address] Nov, [facility] [address] [id number] [address] [place] [address], [place] [address] Oct, [facility] [address] [id number] [address] [place] [address], [place] [address] 17 Sep, 2011 [facility] [address] [id number] [address] [place] [address], [place] [address] Aug, [facility] [address] [id number] [address] [place] [address], [place] [address] Aug, [facility] [address] [id number] [address] [place] [address], [place] [address] Aug, [facility] [address] [id number] [address] [place] [address], [place] [address] Aug, [facility] [address] [id number] [address] [place] [address], [place] [address] Aug, [facility] [address] [id number] [address] [place] [address], [place] [address] Jul, [facility] [address] [id number] [address] [place] [address], [place] [address] Jul, [facility] [address] [id number] [address] [place] [address], [place] [address] Jun, [facility] [address] [id number] [address] [place] [address], [place] [address] Jun, [facility] [address] [id number] [address] [place] [address], [place] [address] Jun, [facility] [address] [id number] [address] [place] [address], [place] [address] May, [facility] [address] [id number] [address] [place] [address], [place] [address] May, [facility] [address] [id number] [address] [place] [address], [place] [address] 16 Oct, 2010 [facility] [address] [id number] [address] [place] [address], [place] [address] Oct, [facility] [address] [id number] [address] [place] [address], [place] [address] 29 Jul, 2010 [facility] [address] [id number] [address] [place] [address], [place] [address] 08 Jul, 2010 [facility] [address] [id number] [address] [place] [address], [place] [address] Jul, [facility] [address] [id number] [address] [place] [address], [place] [address] Jul, [facility] [address] [id number] [address] [place] [address], [place] [address] Jul, [facility] [address] [id number] [address] [place] [address], [place] [address] Jun, [facility] [address] [id number] [address] [place] [address], [place] [address] Jun, [facility] [address] [id number] [address] [place] [address], [place] [address] Jun, [facility] [address] [id number] [address] [place] [address], [place] [address] May, [facility] [address] [facility] [id number] [address] [place] [address] 16 Mar, 2010 IMMUNIZATIONS No Known Immunizations [...]
--- OUTSIDE RECORDS SUMMARY | 2019-11-28 22:52 | XMS REPORT ---
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 Name Role Phone LAURIE LYLE Unavailable PROBLEMS Type Condition ICD9-CM Code [id number] Code Onset Dates Condition S tatus SNOMED Code Problem COPD (chronic obstructive pulmonary disease) J44.9 Active 28492348 Problem Diabetes E11.9 Active 57319323 Problem Diabetic neuropathy E11.40 Active 037638789 Problem Arthritis M19.90 Active 3266360 ALLERGIES No Information ENCOUNTERS Encounter Location Date Diagnosis [facility] [address] [facility] [id number] [address] [place] [id number] December, [facility] [address] [id number] [address] [place] [id number] Aug, Arthritis M19.90 [facility] [address] [facility] [id number] [address] [place] [id number] Jul, [facility] [address] [facility] [id number] [address] [place] [id number] Jul, [facility] [address] [facility] [id number] [address] [place] [id number] Jul, [facility] [address] [id number] [address] [place] [id number] Jul, [facility] [address] [facility] [id number] [address] [place] [id number] Jul, Diabetes E11.9 ; Diabetic ne uropathy E11.40 ; Arthritis M19.90 and COPD (chronic obstructive pulmonary disease) J44.9 [facility] [address] [facility] [id number] [address] [place] [id number] Jul, [facility] [address] [id number] [address] [place] [address], [place] [id number] 23 Jun, 2015 [facility] [address] [id number] [address] [place] [address], [place] [address] 23 Jun, 2015 [facility] [address] [id number] [address] [place] [address], [place] [id number] 17 Jun, 2014 [facility] [address] [id number] [address] [place] [address], [place] [address] 10 Jun, 2014 [facility] [address] [id number] [address] [place] [address], [place] [id number] 15 May, 2015 [facility] [address] [id number] [address] [place] [address], [place] [id number] 13 May, 2015 [facility] [address] [id number] [address] [place] [address], [place] [address] 07 May, 2015 [facility] [address] [id number] [address] [place] [address], [place] [id number] 22 Sep, 2014 [facility] [address] [id number] [address] [place] [address], [place] [address] 21 Sep, 2014 [facility] [address] [id number] [address] [place] [address], [place] [id number] 21 Sep, 2014 [facility] [address] [id number] [address] [place] [address], [place] [id number] 15 Sep, 2014 [facility] [address] [id number] [address] [place] [address], [place] [id number] 11 Sep, 2014 [facility] [address] [id number] [address] [place] [address], [place] [id number] 09 Sep, 2014 [facility] [address] [id number] [address] [place] [address], [place] [address] 08 Sep, 2014 [facility] [address] [id number] [address] [place] [address], [place] [id number] 03 Sep, 2014 [facility] [address] [id number] [address] [place] [address] [address] Apr, [facility] [address] [facility] [id number] [address] [place] [id number] Mar, [facility] [address] [facility] [id number] [address] [place] [id number] Mar, [facility] [address] [facility] [id number] [address] [place] [id number] Mar, [facility] [address] [facility] [id number] [address] [place] [id number] Mar, [facility] [address] [facility] [id number] [address] [place] [id number] Mar, [facility] [address] [facility] [id number] [address] [place] [address] Mar, Diabetes mellitus 250.00 ; C OPD (chronic obstructive pulmonary disease) 496 ; Anxiety 300.00 and Arthritis 716.90 [facility] [address] [facility] [id number] [address] [place] [id number] Feb, [facility] [address] [facility] [id number] [address] [place] [id number] Feb, [facility] [address] [facility] [id number] [address] [place] [id number] Feb, [facility] [address] [facility] [id number] [address] [place] [id number] Feb, [facility] [address] [facility] [id number] [address] [place] [id number] Jan, Seborrheic keratosis 702.19 and Nevus 216.9 [facility] [address] [facility] [id number] [address] [place] [id number] Jan, [facility] [address] [facility] [id number] [address] [place] [id number] Jan, Routine gynecological examin ation V72.31 ; Breast cancer screening V76.10 ; Hot flashes 627.2 ; Atypical nevi 216.9 and Constipation 564.00 [facility] [address] [id number] [address] [place] [address], [place] [address] Jan, [facility] [address] [id number] [address] [place] [address], [place] [address] December, [facility] [address] [id number] [address] [place] [address], [place] [address] December, [facility] [address] [id number] [address] [place] [address], [place] [address] Nov, [facility] [address] [id number] [address] [place] [address], [place] [address] Nov, [facility] [address] [id number] [address] [place] [address], [place] [address] Oct, [facility] [address] [id number] [address] [place] [address], [place] [id number] 23 Oct, 2014 [facility] [address] [id number] [address] [place] [address], [place] [address] 18 Oct, 2014 [facility] [address] [id number] [address] [place] [address], [place] [id number] 18 Oct, 2014 [facility] [address] [id number] [address] [place] [address], [place] [address] 17 Oct, 2014 [facility] [address] [id number] [address] [place] [address], [place] [address] 17 Oct, 2014 [facility] [address] [id number] [address] [place] [id number] 16 Oct, 2014 [facility] [address] [id number] [address] [place] [address], [place] [address] 16 Oct, 2014 [facility] [address] [id number] [address] [place] [address], [place] [address] 11 Oct, 2014 [facility] [address] [id number] [address] [place] [address], [place] [address] 11 Oct, 2014 [facility] [address] [id number] [address] [place] [address], [place] [id number] Sep, 2014 [facility] [address] [id number] [address] [place] [address], [place] [address] Sep, 2014 [facility] [address] [id number] [address] [place] [address], [place] [id number] 19 Sep, 2014 [facility] [address] [id number] [address] [place] [address], [place] [address] 18 Sep, 2014 [facility] [address] [id number] [address] [place] [address], [place] [address] Sep, 2014 [facility] [address] [id number] [address] [place] [address], [place] [address] Sep, 2014 [facility] [address] [id number] [address] [place] [address], [place] [address] Sep, 2014 [facility] [address] [id number] [address] [place] [address], [place] [address] Aug, [facility] [address] [id number] [address] [place] [address], [place] [address] Aug, [facility] [address] [id number] [address] [place] [address], [place] [address] Aug, [facility] [address] [id number] [address] [place] [address], [place] [address] Aug, [facility] [address] [id number] [address] [place] [address], [place] [id number] Aug, [facility] [address] [id number] [address] [place] [address], [place] [address] Aug, [facility] [address] [id number] [address] [place] [address], [place] [address] Jul, [facility] [address] [id number] [address] [place] [address], [place] [id number] Jul, [facility] [address] [id number] [address] [place] [address], [place] [address] Jul, [facility] [address] [id number] [address] [place] [address], [place] [address] Jul, [facility] [address] [id number] [address] [place] [address], [place] [id number] Jul, [facility] [address] [id number] [address] [place] [address], [place] [address] Jun, [facility] [address] [id number] [address] [place] [address], [place] [address] Jun, [facility] [address] [id number] [address] [place] [address], [place] [address] Jun, [facility] [address] [id number] [address] [place] [address], [place] [address] Jun, [facility] [address] [id number] [address] [place] [address], [place] [address] Jun, [facility] [address] [id number] [address] [place] [address], [place] [address] Jun, [facility] [address] [id number] [address] [place] [address], [place] [address] May, [facility] [address] [id number] [address] [place] [address], [place] [address] May, [facility] [address] [id number] [address] [place] [address], [place] [address] May, [facility] [address] [id number] [address] [place] [id number] May, [facility] [address] [id number] [address] [place] [address], [place] [address] May, [facility] [address] [id number] [address] [place] [address], [place] [address] May, [facility] [address] [id number] [address] [place] [address], [place] [address] May, [facility] [address] [id number] [address] [place] [address], [place] [address] May, [facility] [address] [id number] [address] [place] [address], [place] [address] May, [facility] [address] [id number] [address] [place] [address], [place] [address] Apr, [facility] [address] [id number] [address] [place] [address], [place] [address] Apr, [facility] [address] [id number] [address] [place] [address], [place] [address] Apr, [facility] [address] [id number] [address] [place] [address], [place] [address] Apr, [facility] [address] [id number] [address] [place] [address], [place] [address] Mar, [facility] [address] [id number] [address] [place] [address], [place] [address] Mar, [facility] [address] [id number] [address] [place] [address], [place] [address] Mar, [facility] [address] [id number] [address] [place] [address], [place] [address] Mar, [facility] [address] [id number] [address] [place] [address], [place] [address] Mar, [facility] [address] [id number] [address] [place] [address], [place] [address] Mar, [facility] [address] [id number] [address] [place] [address], [place] [address] Feb, [facility] [address] [id number] [address] [place] [address], [place] [address] Feb, [facility] [address] [id number] [address] [place] [address], [place] [address] Feb, [facility] [address] [id number] [address] [place] [address], [place] [address] Feb, [facility] [address] [id number] [facility] [place] [address] Feb, 2013 [facility] [address] [id number] [facility] [place] [address] Feb, [facility] [address] [id number] [address] [place] [address], [place] [address] Feb, 2013 [facility] [address] [id number] [address] [place] [address], [place] [address] Feb, 2013 [facility] [address] [id number] [address] [place] [address], [place] [address] Feb, 2013 [facility] [address] [id number] [address] [place] [address], [place] [address] Feb, [facility] [address] [id number] [address] [place] [address], [place] [address] Feb, [facility] [address] [id number] [address] [place] [address], [place] [address] Feb, [facility] [address] [id number] [address] [place] [address], [place] [address] Jan, [facility] [address] [id number] [address] [place] [address], [place] [address] Jan, [facility] [address] [id number] [address] [place] [address], [place] [address] Jan, [facility] [address] [id number] [address] [place] [address], [place] [address] Jan, [facility] [address] [id number] [address] [place] [address], [place] [address] Jan, [facility] [address] [id number] [address] [place] [address], [place] [address] Jan, [facility] [address] [id number] [address] [place] [address], [place] [address] Jan, [facility] [address] [id number] [address] [place] [address], [place] [address] Jan, [facility] [address] [id number] [address] [place] [address], [place] [address] Jan, [facility] [address] [id number] [address] [place] [address], [place] [address] Jan, [facility] [address] [id number] [address] [place] [address], [place] [address] Jan, [facility] [address] [id number] [address] [place] [address], [place] [address] Jan, [facility] [address] [id number] [address] [place] [address], [place] [address] Jan, [facility] [address] [id number] [address] [place] [address], [place] [address] Jan, [facility] [address] [id number] [address] [place] [address], [place] [address] Jan, [facility] [address] [id number] [address] [place] [address], [place] [address] Jan, [facility] [address] [id number] [address] [place] [address], [place] [address] Jan, [facility] [address] [id number] [address] [place] [address], [place] [address] December, [facility] [address] [id number] [address] [place] [address], [place] [address] December, [facility] [address] [id number] [address] [place] [address], [place] [address] December, [facility] [address] [id number] [address] [place] [address], [place] [address] December, [facility] [address] [id number] [address] [place] [address], [place] [address] December, [facility] [address] [id number] [address] [place] [address], [place] [address] December, [facility] [address] [id number] [address] [place] [address], [place] [address] Nov, [facility] [address] [id number] [address] [place] [address], [place] [address] Nov, [facility] [address] [id number] [address] [place] [address], [place] [address] Nov, [facility] [address] [id number] [address] [place] [address], [place] [address] Nov, [facility] [address] [id number] [address] [place] [address], [place] [address] Nov, [facility] [address] [id number] [address] [place] [address], [place] [address] Nov, [facility] [address] [id number] [address] [place] [address], [place] [address] Nov, [facility] [address] [id number] [address] [place] [address], [place] [address] Nov, [facility] [address] [id number] [address] [place] [address], [place] [address] Nov, [facility] [address] [id number] [address] [place] [address], [place] [address] Nov, [facility] [address] [id number] [address] [place] [address], [place] [address] Nov, [facility] [address] [id number] [address] [place] [address], [place] [address] Nov, [facility] [address] [id number] [address] [place] [address], [place] [address] Nov, [facility] [address] [id number] [address] [place] [address], [place] [address] Nov, [facility] [address] [id number] [address] [place] [address], [place] [address] Nov, [facility] [address] [id number] [address] [place] [address], [place] [address] Nov, [facility] [address] [id number] [address] [place] [address], [place] [address] Oct, [facility] [address] [id number] [address] [place] [address], [place] [address] Oct, [facility] [address] [id number] [address] [place] [address], [place] [address] Oct, [facility] [address] [id number] [address] [place] [address], [place] [address] Oct, [facility] [address] [id number] [address] [place] [address], [place] [id number] Oct, [facility] [address] [id number] [address] [place] [address], [place] [address] Oct, [facility] [address] [id number] [address] [place] [address], [place] [address] Oct, [facility] [address] [id number] [address] [place] [address], [place] [address] Oct, [facility] [address] [id number] [address] [place] [address], [place] [id number] Sep, [facility] [address] [id number] [address] [place] [address], [place] [id number] Sep, [facility] [address] [id number] [address] [place] [address], [place] [id number] Sep, [facility] [address] [id number] [address] [place] [address], [place] [id number] Sep, [facility] [address] [id number] [address] [place] [address], [place] [id number] Sep, [facility] [address] [id number] [address] [place] [address], [place] [id number] Sep, [facility] [address] [id number] [address] [place] [address], [place] [id number] Aug, [facility] [address] [id number] [address] [place] [address], [place] [id number] Aug, [facility] [address] [id number] [address] [place] [address], [place] [id number] Aug, [facility] [address] [id number] [address] [place] [address], [place] [id number] Aug, [facility] [address] [id number] [address] [place] [address], [place] [id number] Aug, [facility] [address] [id number] [address] [place] [address], [place] [id number] Aug, [facility] [address] [id number] [address] [place] [address], [place] [id number] Aug, [facility] [address] [id number] [address] [place] [address], [place] [id number] Aug, [facility] [address] [id number] [address] [place] [address], [place] [id number] Jul, [facility] [address] [id number] [address] [place] [address], [place] [id number] Jul, [facility] [address] [id number] [address] [place] [address], [place] [id number] Jul, [facility] [address] [id number] [address] [place] [address], [place] [id number] Jul, [facility] [address] [id number] [address] [place] [address], [place] [id number] Jul, [facility] [address] [id number] [address] [place] [address], [place] [id number] Jul, [facility] [address] [id number] [address] [place] [address], [place] [id number] Jul, [facility] [address] [id number] [address] [place] [address], [place] [id number] Jul, [facility] [address] [id number] [address] [place] [address], [place] [id number] Jul, [facility] [address] [id number] [address] [place] [address], [place] [id number] 14 Jun, 2013 [facility] [address] [id number] [address] [place] [address], [place] [id number] 14 Jun, 2013 [facility] [address] [id number] [address] [place] [address], [place] [id number] Jun, [facility] [address] [id number] [address] [place] [address], [place] [id number] Jun, [facility] [address] [id number] [address] [place] [address], [place] [id number] Jun, [facility] [address] [id number] [address] [place] [address], [place] [id number] Jun, [facility] [address] [id number] [address] [place] [address], [place] [id number] 31 May, 2013 [facility] [address] [id number] [address] [place] [address], [place] [id number] 31 May, 2013 [facility] [address] [id number] [address] [place] [address], [place] [id number] 17 May, 2013 [facility] [address] [id number] [address] [place] [address], [place] [id number] 17 May, 2013 [facility] [address] [id number] [address] [place] [address], [place] [id number] 14 May, 2013 [facility] [address] [id number] [address] [place] [address], [place] [id number] 14 May, 2013 [facility] [address] [id number] [address] [place] [address], [place] [id number] 10 May, 2013 [facility] [address] [id number] [address] [place] [address], [place] [id number] 10 May, 2013 [facility] [address] [id number] [address] [place] [id number] 07 May, 2013 [facility] [address] [id number] [address] [place] [id number] 20 Sep, 2012 [facility] [address] [id number] [address] [place] [address], [place] [id number] 19 Sep, 2012 [facility] [address] [id number] [address] [place] [address], [place] [id number] 12 Apr, 2012 [facility] [address] [id number] [address] [place] [address], [place] [id number] 24 Sep, 2011 [facility] [address] [id number] [address] [place] [address], [place] [id number] 21 Sep, 2011 [facility] [address] [id number] [address] [place] [address], [place] [id number] 21 Apr, 2011 [facility] [address] [id number] [address] [place] [address], [place] [id number] 14 Apr, 2011 [facility] [address] [id number] [address] [place] [address], [place] [id number] 10 Apr, 2011 [facility] [address] [id number] [address] [place] [address], [place] [id number] 06 Apr, 2011 [facility] [address] [id number] [address] [place] [address], [place] [id number] 04 Apr, 2011 [facility] [address] [id number] [address] [place] [address], [place] [id number] 31 Mar, 2012 [facility] [address] [id number] [address] [place] [address], [place] [id number] 28 Mar, 2012 [facility] [address] [id number] [address] [place] [address], [place] [id number] 27 Mar, 2012 [facility] [address] [id number] [address] [place] [address], [place] [id number] 10 Mar, 2012 [facility] [address] [id number] [address] [place] [address], [place] [id number] 08 Mar, 2012 [facility] [address] [id number] [address] [place] [address], [place] [id number] 03 Mar, 2012 [facility] [address] [id number] [address] [place] [address], [place] [id number] Feb, [facility] [address] [id number] [address] [place] [address], [place] [id number] Feb, [facility] [address] [id number] [address] [place] [address], [place] [id number] Feb, [facility] [address] [id number] [address] [place] [address], [place] [id number] Jan, [facility] [address] [id number] [address] [place] [address], [place] [id number] Jan, [facility] [address] [id number] [address] [place] [address], [place] [id number] Jan, [facility] [address] [id number] [address] [place] [address], [place] [id number] Jan, [facility] [address] [id number] [address] [place] [address], [place] [id number] Jan, [facility] [address] [id number] [address] [place] [address], [place] [id number] Jan, [facility] [address] [id number] [address] [place] [address], [place] [id number] Jan, [facility] [address] [id number] [address] [place] [address], [place] [id number] Jan, [facility] [address] [id number] [address] [place] [address], [place] [id number] December, [facility] [address] [id number] [address] [place] [address], [place] [id number] December, [facility] [address] [id number] [address] [place] [address], [place] [id number] December, [facility] [address] [id number] [address] [place] [address], [place] [id number] December, [facility] [address] [id number] [address] [place] [address], [place] [id number] December, [facility] [address] [id number] [address] [place] [address], [place] [id number] December, [facility] [address] [id number] [address] [place] [address], [place] [id number] 13 Nov, 2011 [facility] [address] [id number] [address] [place] [address], [place] [id number] 13 Nov, 2011 [facility] [address] [id number] [address] [place] [address], [place] [id number] Nov, [facility] [address] [id number] [address] [place] [address], [place] [id number] Nov, [facility] [address] [id number] [address] [place] [address], [place] [id number] Nov, [facility] [address] [id number] [address] [place] [address], [place] [id number] Oct, [facility] [address] [id number] [address] [place] [address], [place] [id number] 17 Sep, 2011 [facility] [address] [id number] [address] [place] [address], [place] [id number] Aug, [facility] [address] [id number] [address] [place] [address], [place] [id number] Aug, [facility] [address] [id number] [address] [place] [address], [place] [id number] Aug, [facility] [address] [id number] [address] [place] [address], [place] [id number] Aug, [facility] [address] [id number] [address] [place] [address], [place] [id number] Aug, [facility] [address] [id number] [address] [place] [address], [place] [id number] Jul, [facility] [address] [id number] [address] [place] [address], [place] [id number] Jul, [facility] [address] [id number] [address] [place] [address], [place] [id number] Jun, [facility] [address] [id number] [address] [place] [address], [place] [id number] Jun, [facility] [address] [id number] [address] [place] [address], [place] [id number] Jun, [facility] [address] [id number] [address] [place] [address], [place] [id number] May, [facility] [address] [id number] [address] [place] [address], [place] [id number] May, [facility] [address] [id number] [address] [place] [address], [place] [id number] 16 Oct, 2010 [facility] [address] [id number] [address] [place] [address], [place] [id number] Oct, [facility] [address] [id number] [address] [place] [address], [place] [id number] 29 Jul, 2010 [facility] [address] [id number] [address] [place] [address], [place] [id number] 08 Jul, 2010 [facility] [address] [id number] [address] [place] [address], [place] [id number] Jul, [facility] [address] [id number] [address] [place] [address], [place] [id number] Jul, [facility] [address] [id number] [address] [place] [address], [place] [id number] Jul, [facility] [address] [id number] [address] [place] [address], [place] [id number] Jun, [facility] [address] [id number] [address] [place] [address], [place] [id number] Jun, [facility] [address] [id number] [address] [place] [address], [place] [id number] Jun, [facility] [address] [id number] [address] [place] [address], [place] [id number] May, [facility] [address] [facility] [id number] [address] [place] [address] 16 Mar, 2010 IMMUNIZATIONS No Known Immunizations SOCIAL HISTORY Never Assessed REASON FOR VISIT PLAN OF CARE VITAL SIGNS Height 60 in 2014-05-15 Weight 218 lbs 2014-05-15 Temperature 98 degrees Fahrenheit 2014-05-15 Heart Rate 80 bpm 2014-05-15 Respiratory Rate 18 2014-05-15 Blood pressure systolic 148 mmHg 2014-05-15 Blood pressure diastolic 84 mmHg 2014-05-15 MEDICATIONS Unknown Medications RESULTS No Results PROCEDURES Procedure Date Ordered Result Body Site GLYCATED HEMOGLOBIN TEST May 15, 2014 INSTRUCTIONS MEDICATIONS ADMINISTERED No Known Medications MEDICAL (GENERAL) HISTORY Type Description Date Medical History Hypertension Medical History Chronic obstructive pulmonary disease Medical History Type 2 diabetes mellitus Medical History Psychiatric disorders depression Surgical History Hysterectomy total abdominal 1996 Surgical History Orthopedic Surgery Surgical History Scleral buckle Hospitalization History No Hospitalization history informati on
--- OUTSIDE RECORDS SUMMARY | 2019-11-28 22:52 | XMS REPORT ---
Author Author Caren LYLE Organization [facility] Address [address] [place] [address] Care Team Providers Care It Sales Executive Name Role Phone LAURIE LYLE Unavailable PROBLEMS Type Condition ICD9-CM Code SCX42-GW Code Onset Dates Condition S tatus SNOMED Code Problem COPD (chronic obstructive pulmonary disease) J44.9 Active 65628430 Problem Diabetes E11.9 Active 88876667 Problem Diabetic neuropathy E11.40 Active 378232245 Problem Arthritis M19.90 Active 8673553 ALLERGIES No Information ENCOUNTERS Encounter Location Date Diagnosis [facility] [address] [facility] [id number] [address] [place] [address] December, [facility] [address] [id number] [address] [place] [address] Aug, Arthritis M19.90 [facility] [address] [facility] [id number] [address] [place] [id number] Jul, [facility] [address] [facility] [id number] [address] [place] [address] Jul, [facility] [address] [facility] [id number] [address] [place] [address] Jul, [facility] [address] [id number] [address] [place] [address] Jul, [facility] [address] [facility] [id number] [address] [place] [address] Jul, Diabetes E11.9 ; Diabetic ne uropathy E11.40 ; Arthritis M19.90 and COPD (chronic obstructive pulmonary disease) J44.9 [facility] [address] [facility] [id number] [address] [place] [address] Jul, [facility] [address] [id number] [address] [place] [address], [place] [address] 23 Jun, 2015 [facility] [address] [id number] [address] [place] [address], [place] [address] 23 Jun, 2015 [facility] [address] [id number] [address] [place] [address], [place] [address] 17 Jun, 2014 [facility] [address] [id number] [address] [place] [address], [place] [address] 10 Jun, 2014 [facility] [address] [id number] [address] [place] [address], [place] [address] 15 May, 2015 [facility] [address] [id number] [address] [place] [address], [place] [address] 13 May, 2015 [facility] [address] [id number] [address] [place] [address], [place] [address] 07 May, 2015 [facility] [address] [id number] [address] [place] [address], [place] [address] 22 Sep, 2014 [facility] [address] [id number] [address] [place] [address], [place] [address] 21 Sep, 2014 [facility] [address] [id number] [address] [place] [address], [place] [address] 21 Sep, 2014 [facility] [address] [id number] [address] [place] [address], [place] [address] 15 Sep, 2014 [facility] [address] [id number] [address] [place] [address], [place] [address] 11 Sep, 2014 [facility] [address] [id number] [address] [place] [address], [place] [address] 09 Sep, 2014 [facility] [address] [id number] [address] [place] [address], [place] [address] 08 Sep, 2014 [facility] [address] [id number] [address] [place] [address], [place] [address] 03 Sep, 2014 [facility] [address] [id number] [address] [place] [address] [address] Apr, [facility] [address] [facility] [id number] [address] [place] [address] Mar, [facility] [address] [facility] [id number] [address] [place] [address] Mar, [facility] [address] [facility] [id number] [address] [place] [address] Mar, [facility] [address] [facility] [id number] [address] [place] [address] Mar, [facility] [address] [facility] [id number] [address] [place] [address] Mar, [facility] [address] [facility] [id number] [address] [place] [address] Mar, Diabetes mellitus 250.00 ; C OPD (chronic obstructive pulmonary disease) 496 ; Anxiety 300.[address] [facility] [address] [facility] [id number] [address] [place] [address] Feb, [facility] [address] [facility] [id number] [address] [place] [address] Feb, [facility] [address] [facility] [id number] [address] [place] [address] Feb, [facility] [address] [facility] [id number] [address] [place] [address] Feb, [facility] [address] [facility] [id number] [address] [place] [address] Jan, Seborrheic keratosis 702.[address] [facility] [address] [facility] [id number] [address] [place] [address] Jan, [facility] [address] [facility] [id number] [address] [place] [address] Jan, Routine gynecological examin ation V72.31 ; Breast cancer screening V76.10 ; Hot flashes 627.2 ; Atypical nevi 216.9 and Constipation 564.00 [facility] [address] [id number] [address] [place] [address], [place] [address] Jan, [facility] [address] [id number] [address] [place] [address], [place] [address] December, [facility] [address] [id number] [address] [place] [address], [place] [address] December, [facility] [address] [id number] [address] [place] [address], [place] [address] Nov, [facility] [address] [id number] [address] [place] [address], [place] [address] Nov, [facility] [address] [id number] [address] [place] [address], [place] [address] Oct, [facility] [address] [id number] [address] [place] [address], [place] [address] 23 Oct, 2014 [facility] [address] [id number] [address] [place] [address], [place] [address] 18 Oct, 2014 [facility] [address] [id number] [address] [place] [address], [place] [address] 18 Oct, 2014 [facility] [address] [id number] [address] [place] [address], [place] [address] 17 Oct, 2014 [facility] [address] [id number] [address] [place] [address], [place] [address] 17 Oct, 2014 [facility] [address] [id number] [address] [place] [address] 16 Oct, 2014 [facility] [address] [id number] [address] [place] [address], [place] [address] 16 Oct, 2014 [facility] [address] [id number] [address] [place] [address], [place] [address] 11 Oct, 2014 [facility] [address] [id number] [address] [place] [address], [place] [address] 11 Oct, 2014 [facility] [address] [id number] [address] [place] [address], [place] [address] Sep, 2014 [facility] [address] [id number] [address] [place] [address], [place] [address] Sep, 2014 [facility] [address] [id number] [address] [place] [address], [place] [address] 19 Sep, 2014 [facility] [address] [id number] [address] [place] [address], [place] [address] 18 Sep, 2014 [facility] [address] [id number] [address] [place] [address], [place] [address] Sep, 2014 [facility] [address] [id number] [address] [place] [address], [place] [address] Sep, 2014 [facility] [address] [id number] [address] [place] [address], [place] [address] Sep, 2014 [facility] [address] [id number] [address] [place] [address], [place] [address] Aug, [facility] [address] [id number] [address] [place] [address], [place] [address] Aug, [facility] [address] [id number] [address] [place] [address], [place] [address] Aug, [facility] [address] [id number] [address] [place] [address], [place] [address] Aug, [facility] [address] [id number] [address] [place] [address], [place] [address] Aug, [facility] [address] [id number] [address] [place] [address], [place] [address] Aug, [facility] [address] [id number] [address] [place] [address], [place] [address] Jul, [facility] [address] [id number] [address] [place] [address], [place] [address] Jul, [facility] [address] [id number] [address] [place] [address], [place] [address] Jul, [facility] [address] [id number] [address] [place] [address], [place] [address] Jul, [facility] [address] [id number] [address] [place] [address], [place] [address] Jul, [facility] [address] [id number] [address] [place] [address], [place] [address] Jun, [facility] [address] [id number] [address] [place] [address], [place] [address] Jun, [facility] [address] [id number] [address] [place] [address], [place] [address] Jun, [facility] [address] [id number] [address] [place] [address], [place] [address] Jun, [facility] [address] [id number] [address] [place] [address], [place] [address] Jun, [facility] [address] [id number] [address] [place] [address], [place] [address] Jun, [facility] [address] [id number] [address] [place] [address], [place] [address] May, [facility] [address] [id number] [address] [place] [address], [place] [address] May, [facility] [address] [id number] [address] [place] [address], [place] [address] May, [facility] [address] [id number] [address] [place] [address] May, [facility] [address] [id number] [address] [place] [address], [place] [address] May, [facility] [address] [id number] [address] [place] [address], [place] [address] May, [facility] [address] [id number] [address] [place] [address], [place] [address] May, [facility] [address] [id number] [address] [place] [address], [place] [address] May, [facility] [address] [id number] [address] [place] [address], [place] [address] May, [facility] [address] [id number] [address] [place] [address], [place] [address] Apr, [facility] [address] [id number] [address] [place] [address], [place] [address] Apr, [facility] [address] [id number] [address] [place] [address], [place] [address] Apr, [facility] [address] [id number] [address] [place] [address], [place] [address] Apr, [facility] [address] [id number] [address] [place] [address], [place] [address] Mar, [facility] [address] [id number] [address] [place] [address], [place] [address] Mar, [facility] [address] [id number] [address] [place] [address], [place] [address] Mar, [facility] [address] [id number] [address] [place] [address], [place] [address] Mar, [facility] [address] [id number] [address] [place] [address], [place] [address] Mar, [facility] [address] [id number] [address] [place] [address], [place] [address] Mar, [facility] [address] [id number] [address] [place] [address], [place] [address] Feb, [facility] [address] [id number] [address] [place] [address], [place] [address] Feb, [facility] [address] [id number] [address] [place] [address], [place] [address] Feb, [facility] [address] [id number] [address] [place] [address], [place] [address] Feb, [facility] [address] [id number] [facility] [place] [address] Feb, 2013 [facility] [address] [id number] [facility] [place] [address] Feb, [facility] [address] [id number] [address] [place] [address], [place] [address] Feb, 2013 [facility] [address] [id number] [address] [place] [address], [place] [address] Feb, 2013 [facility] [address] [id number] [address] [place] [address], [place] [address] Feb, 2013 [facility] [address] [id number] [address] [place] [address], [place] [address] Feb, [facility] [address] [id number] [address] [place] [address], [place] [address] Feb, [facility] [address] [id number] [address] [place] [address], [place] [address] Feb, [facility] [address] [id number] [address] [place] [address], [place] [address] Jan, [facility] [address] [id number] [address] [place] [address], [place] [address] Jan, [facility] [address] [id number] [address] [place] [address], [place] [address] Jan, [facility] [address] [id number] [address] [place] [address], [place] [address] Jan, [facility] [address] [id number] [address] [place] [address], [place] [address] Jan, [facility] [address] [id number] [address] [place] [address], [place] [address] Jan, [facility] [address] [id number] [address] [place] [address], [place] [address] Jan, [facility] [address] [id number] [address] [place] [address], [place] [address] Jan, [facility] [address] [id number] [address] [place] [address], [place] [address] Jan, [facility] [address] [id number] [address] [place] [address], [place] [address] Jan, [facility] [address] [id number] [address] [place] [address], [place] [address] Jan, [facility] [address] [id number] [address] [place] [address], [place] [address] Jan, [facility] [address] [id number] [address] [place] [address], [place] [address] Jan, [facility] [address] [id number] [address] [place] [address], [place] [address] Jan, [facility] [address] [id number] [address] [place] [address], [place] [address] Jan, [facility] [address] [id number] [address] [place] [address], [place] [address] Jan, [facility] [address] [id number] [address] [place] [address], [place] [address] Jan, [facility] [address] [id number] [address] [place] [address], [place] [address] December, [facility] [address] [id number] [address] [place] [address], [place] [address] December, [facility] [address] [id number] [address] [place] [address], [place] [address] December, [facility] [address] [id number] [address] [place] [address], [place] [address] December, [facility] [address] [id number] [address] [place] [address], [place] [address] December, [facility] [address] [id number] [address] [place] [address], [place] [address] December, [facility] [address] [id number] [address] [place] [address], [place] [address] Nov, [facility] [address] [id number] [address] [place] [address], [place] [address] Nov, [facility] [address] [id number] [address] [place] [address], [place] [address] Nov, [facility] [address] [id number] [address] [place] [address], [place] [address] Nov, [facility] [address] [id number] [address] [place] [address], [place] [address] Nov, [facility] [address] [id number] [address] [place] [address], [place] [address] Nov, [facility] [address] [id number] [address] [place] [address], [place] [address] Nov, [facility] [address] [id number] [address] [place] [address], [place] [address] Nov, [facility] [address] [id number] [address] [place] [address], [place] [address] Nov, [facility] [address] [id number] [address] [place] [address], [place] [address] Nov, [facility] [address] [id number] [address] [place] [address], [place] [address] Nov, [facility] [address] [id number] [address] [place] [address], [place] [address] Nov, [facility] [address] [id number] [address] [place] [address], [place] [address] Nov, [facility] [address] [id number] [address] [place] [address], [place] [address] Nov, [facility] [address] [id number] [address] [place] [address], [place] [address] Nov, [facility] [address] [id number] [address] [place] [address], [place] [address] Nov, [facility] [address] [id number] [address] [place] [address], [place] [address] Oct, [facility] [address] [id number] [address] [place] [address], [place] [address] Oct, [facility] [address] [id number] [address] [place] [address], [place] [address] Oct, [facility] [address] [id number] [address] [place] [address], [place] [address] Oct, [facility] [address] [id number] [address] [place] [address], [place] [address] Oct, [facility] [address] [id number] [address] [place] [address], [place] [address] Oct, [facility] [address] [id number] [address] [place] [address], [place] [address] Oct, [facility] [address] [id number] [address] [place] [address], [place] [address] Oct, [facility] [address] [id number] [address] [place] [address], [place] [address] Sep, [facility] [address] [id number] [address] [place] [address], [place] [address] Sep, [facility] [address] [id number] [address] [place] [address], [place] [address] Sep, [facility] [address] [id number] [address] [place] [address], [place] [address] Sep, [facility] [address] [id number] [address] [place] [address], [place] [address] Sep, [facility] [address] [id number] [address] [place] [address], [place] [address] Sep, [facility] [address] [id number] [address] [place] [address], [place] [address] Aug, [facility] [address] [id number] [address] [place] [address], [place] [address] Aug, [facility] [address] [id number] [address] [place] [address], [place] [address] Aug, [facility] [address] [id number] [address] [place] [address], [place] [address] Aug, [facility] [address] [id number] [address] [place] [address], [place] [address] Aug, [facility] [address] [id number] [address] [place] [address], [place] [address] Aug, [facility] [address] [id number] [address] [place] [address], [place] [address] Aug, [facility] [address] [id number] [address] [place] [address], [place] [address] Aug, [facility] [address] [id number] [address] [place] [address], [place] [address] Jul, [facility] [address] [id number] [address] [place] [address], [place] [address] Jul, [facility] [address] [id number] [address] [place] [address], [place] [address] Jul, [facility] [address] [id number] [address] [place] [address], [place] [address] Jul, [facility] [address] [id number] [address] [place] [address], [place] [address] Jul, [facility] [address] [id number] [address] [place] [address], [place] [address] Jul, [facility] [address] [id number] [address] [place] [address], [place] [address] Jul, [facility] [address] [id number] [address] [place] [address], [place] [address] Jul, [facility] [address] [id number] [address] [place] [address], [place] [address] Jul, [facility] [address] [id number] [address] [place] [address], [place] [address] 14 Jun, 2013 [facility] [address] [id number] [address] [place] [address], [place] [address] 14 Jun, 2013 [facility] [address] [id number] [address] [place] [address], [place] [address] Jun, [facility] [address] [id number] [address] [place] [address], [place] [address] Jun, [facility] [address] [id number] [address] [place] [address], [place] [address] Jun, [facility] [address] [id number] [address] [place] [address], [place] [address] Jun, [facility] [address] [id number] [address] [place] [address], [place] [address] 31 May, 2013 [facility] [address] [id number] [address] [place] [address], [place] [address] 31 May, 2013 [facility] [address] [id number] [address] [place] [address], [place] [address] 17 May, 2013 [facility] [address] [id number] [address] [place] [address], [place] [address] 17 May, 2013 [facility] [address] [id number] [address] [place] [address], [place] [address] 14 May, 2013 [facility] [address] [id number] [address] [place] [address], [place] [address] 14 May, 2013 [facility] [address] [id number] [address] [place] [address], [place] [address] 10 May, 2013 [facility] [address] [id number] [address] [place] [address], [place] [address] 10 May, 2013 [facility] [address] [id number] [address] [place] [address] 07 May, 2013 [facility] [address] [id number] [address] [place] [address] 20 Sep, 2012 [facility] [address] [id number] [address] [place] [address], [place] [address] 19 Sep, 2012 [facility] [address] [id number] [address] [place] [address], [place] [address] 12 Apr, 2012 [facility] [address] [id number] [address] [place] [address], [place] [address] 24 Sep, 2011 [facility] [address] [id number] [address] [place] [address], [place] [address] 21 Sep, 2011 [facility] [address] [id number] [address] [place] [address], [place] [address] 21 Apr, 2011 [facility] [address] [id number] [address] [place] [address], [place] [address] 14 Apr, 2011 [facility] [address] [id number] [address] [place] [address], [place] [address] 10 Apr, 2011 [facility] [address] [id number] [address] [place] [address], [place] [address] 06 Apr, 2011 [facility] [address] [id number] [address] [place] [address], [place] [address] 04 Apr, 2011 [facility] [address] [id number] [address] [place] [address], [place] [address] 31 Mar, 2012 [facility] [address] [id number] [address] [place] [address], [place] [address] 28 Mar, 2012 [facility] [address] [id number] [address] [place] [address], [place] [address] 27 Mar, 2012 [facility] [address] [id number] [address] [place] [address], [place] [address] 10 Mar, 2012 [facility] [address] [id number] [address] [place] [address], [place] [address] 08 Mar, 2012 [facility] [address] [id number] [address] [place] [address], [place] [address] 03 Mar, 2012 [facility] [address] [id number] [address] [place] [address], [place] [address] Feb, [facility] [address] [id number] [address] [place] [address], [place] [address] Feb, [facility] [address] [id number] [address] [place] [address], [place] [address] Feb, [facility] [address] [id number] [address] [place] [address], [place] [address] Jan, [facility] [address] [id number] [address] [place] [address], [place] [address] Jan, [facility] [address] [id number] [address] [place] [address], [place] [address] Jan, [facility] [address] [id number] [address] [place] [address], [place] [address] Jan, [facility] [address] [id number] [address] [place] [address], [place] [address] Jan, [facility] [address] [id number] [address] [place] [address], [place] [address] Jan, [facility] [address] [id number] [address] [place] [address], [place] [address] Jan, [facility] [address] [id number] [address] [place] [address], [place] [address] Jan, [facility] [address] [id number] [address] [place] [address], [place] [address] December, [facility] [address] [id number] [address] [place] [address], [place] [address] December, [facility] [address] [id number] [address] [place] [address], [place] [address] December, [facility] [address] [id number] [address] [place] [address], [place] [address] December, [facility] [address] [id number] [address] [place] [address], [place] [address] December, [facility] [address] [id number] [address] [place] [address], [place] [address] December, [facility] [address] [id number] [address] [place] [address], [place] [address] 13 Nov, 2011 [facility] [address] [id number] [address] [place] [address], [place] [address] 13 Nov, 2011 [facility] [address] [id number] [address] [place] [address], [place] [address] Nov, [facility] [address] [id number] [address] [place] [address], [place] [address] Nov, [facility] [address] [id number] [address] [place] [address], [place] [address] Nov, [facility] [address] [id number] [address] [place] [address], [place] [address] Oct, [facility] [address] [id number] [address] [place] [address], [place] [address] 17 Sep, 2011 [facility] [address] [id number] [address] [place] [address], [place] [address] Aug, [facility] [address] [id number] [address] [place] [address], [place] [address] Aug, [facility] [address] [id number] [address] [place] [address], [place] [address] Aug, [facility] [address] [id number] [address] [place] [address], [place] [address] Aug, [facility] [address] [id number] [address] [place] [address], [place] [address] Aug, [facility] [address] [id number] [address] [place] [address], [place] [address] Jul, [facility] [address] [id number] [address] [place] [address], [place] [address] Jul, [facility] [address] [id number] [address] [place] [address], [place] [address] Jun, [facility] [address] [id number] [address] [place] [address], [place] [address] Jun, [facility] [address] [id number] [address] [place] [address], [place] [address] Jun, [facility] [address] [id number] [address] [place] [address], [place] [address] May, [facility] [address] [id number] [address] [place] [address], [place] [address] May, [facility] [address] [id number] [address] [place] [address], [place] [address] 16 Oct, 2010 [facility] [address] [id number] [address] [place] [address], [place] [address] Oct, [facility] [address] [id number] [address] [place] [address], [place] [address] 29 Jul, 2010 [facility] [address] [id number] [address] [place] [address], [place] [address] 08 Jul, 2010 [facility] [address] [id number] [address] [place] [address], [place] [address] Jul, [facility] [address] [id number] [address] [place] [address], [place] [address] Jul, [facility] [address] [id number] [address] [place] [address], [place] [address] Jul, [facility] [address] [id number] [address] [place] [address], [place] [address] Jun, [facility] [address] [id number] [address] [place] [address], [place] [address] Jun, [facility] [address] [id number] [address] [place] [address], [place] [address] Jun, [facility] [address] [id number] [address] [place] [address], [place] [address] May, [facility] [address] [facility] [id number] [address] [place] [address] 16 Mar, 2010 IMMUNIZATIONS No Known Immunizations [...]
--- OUTSIDE RECORDS SUMMARY | 2019-11-28 22:52 | XMS REPORT ---
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 Name Role Phone LAURIE LYLE Unavailable PROBLEMS Type Condition ICD9-CM Code [id number] Code Onset Dates Condition S tatus SNOMED Code Problem COPD (chronic obstructive pulmonary disease) J44.9 Active 59857703 Problem Diabetes E11.9 Active 35807159 Problem Diabetic neuropathy E11.40 Active 781156199 Problem Arthritis M19.90 Active [id number] ALLERGIES No Information ENCOUNTERS Encounter Location Date Diagnosis [facility] [address] [facility] [id number] [address] [place] [address] December, [facility] [address] [id number] [address] [place] [address] Aug, Arthritis M19.90 [facility] [address] [facility] [id number] [address] [place] [address] Jul, [facility] [address] [facility] [id number] [address] [place] [address] Jul, [facility] [address] [facility] [id number] [address] [place] [address] Jul, [facility] [address] [id number] [address] [place] [address] Jul, [facility] [address] [facility] [id number] [address] [place] [address] Jul, Diabetes E11.9 ; Diabetic ne uropathy E11.40 ; Arthritis M19.90 and COPD (chronic obstructive pulmonary disease) J44.9 [facility] [address] [facility] [id number] [address] [place] [address] Jul, [facility] [address] [id number] [address] [place] [address], [place] [address] 23 Jun, 2015 [facility] [address] [id number] [address] [place] [address], [place] [address] 23 Jun, 2015 [facility] [address] [id number] [address] [place] [address], [place] [address] 17 Jun, 2014 [facility] [address] [id number] [address] [place] [address], [place] [address] 10 Jun, 2014 [facility] [address] [id number] [address] [place] [address], [place] [address] 15 May, 2015 [facility] [address] [id number] [address] [place] [address], [place] [address] 13 May, 2015 [facility] [address] [id number] [address] [place] [address], [place] [address] 07 May, 2015 [facility] [address] [id number] [address] [place] [address], [place] [address] 22 Sep, 2014 [facility] [address] [id number] [address] [place] [address], [place] [address] 21 Sep, 2014 [facility] [address] [id number] [address] [place] [address], [place] [address] 21 Sep, 2014 [facility] [address] [id number] [address] [place] [address], [place] [address] 15 Sep, 2014 [facility] [address] [id number] [address] [place] [address], [place] [address] 11 Sep, 2014 [facility] [address] [id number] [address] [place] [address], [place] [address] 09 Sep, 2014 [facility] [address] [id number] [address] [place] [address], [place] [address] 08 Sep, 2014 [facility] [address] [id number] [address] [place] [address], [place] [address] 03 Sep, 2014 [facility] [address] [id number] [address] [place] [address] [address] Apr, [facility] [address] [facility] [id number] [address] [place] [address] Mar, [facility] [address] [facility] [id number] [address] [place] [address] Mar, [facility] [address] [facility] [id number] [address] [place] [address] Mar, [facility] [address] [facility] [id number] [address] [place] [address] Mar, [facility] [address] [facility] [id number] [address] [place] [address] Mar, [facility] [address] [facility] [id number] [address] [place] [address] Mar, Diabetes mellitus 250.00 ; C OPD (chronic obstructive pulmonary disease) 496 ; Anxiety 300.00 and Arthritis 716.90 [facility] [address] [facility] [id number] [address] [place] [address] Feb, [facility] [address] [facility] [id number] [address] [place] [address] Feb, [facility] [address] [facility] [id number] [address] [place] [address] Feb, [facility] [address] [facility] [id number] [address] [place] [address] Feb, [facility] [address] [facility] [id number] [address] [place] [address] Jan, Seborrheic keratosis 702.19 and Nevus 216.9 [facility] [address] [facility] [id number] [address] [place] [address] Jan, [facility] [address] [facility] [id number] [address] [place] [address] Jan, Routine gynecological examin ation V72.31 ; Breast cancer screening V76.10 ; Hot flashes 627.2 ; Atypical nevi 216.9 and Constipation 564.00 [facility] [address] [id number] [address] [place] [address], [place] [address] Jan, [facility] [address] [id number] [address] [place] [address], [place] [address] December, [facility] [address] [id number] [address] [place] [address], [place] [address] December, [facility] [address] [id number] [address] [place] [address], [place] [address] Nov, [facility] [address] [id number] [address] [place] [address], [place] [address] Nov, [facility] [address] [id number] [address] [place] [address], [place] [address] Oct, [facility] [address] [id number] [address] [place] [address], [place] [address] 23 Oct, 2014 [facility] [address] [id number] [address] [place] [address], [place] [address] 18 Oct, 2014 [facility] [address] [id number] [address] [place] [address], [place] [address] 18 Oct, 2014 [facility] [address] [id number] [address] [place] [address], [place] [address] 17 Oct, 2014 [facility] [address] [id number] [address] [place] [address], [place] [address] 17 Oct, 2014 [facility] [address] [id number] [address] [place] [address] 16 Oct, 2014 [facility] [address] [id number] [address] [place] [address], [place] [address] 16 Oct, 2014 [facility] [address] [id number] [address] [place] [address], [place] [address] 11 Oct, 2014 [facility] [address] [id number] [address] [place] [address], [place] [address] 11 Oct, 2014 [facility] [address] [id number] [address] [place] [address], [place] [address] Sep, 2014 [facility] [address] [id number] [address] [place] [address], [place] [address] Sep, 2014 [facility] [address] [id number] [address] [place] [address], [place] [address] 19 Sep, 2014 [facility] [address] [id number] [address] [place] [address], [place] [address] 18 Sep, 2014 [facility] [address] [id number] [address] [place] [address], [place] [address] Sep, 2014 [facility] [address] [id number] [address] [place] [address], [place] [address] Sep, 2014 [facility] [address] [id number] [address] [place] [address], [place] [address] Sep, 2014 [facility] [address] [id number] [address] [place] [address], [place] [address] Aug, [facility] [address] [id number] [address] [place] [address], [place] [address] Aug, [facility] [address] [id number] [address] [place] [address], [place] [address] Aug, [facility] [address] [id number] [address] [place] [address], [place] [address] Aug, [facility] [address] [id number] [address] [place] [address], [place] [address] Aug, [facility] [address] [id number] [address] [place] [address], [place] [address] Aug, [facility] [address] [id number] [address] [place] [address], [place] [address] Jul, [facility] [address] [id number] [address] [place] [address], [place] [address] Jul, [facility] [address] [id number] [address] [place] [address], [place] [address] Jul, [facility] [address] [id number] [address] [place] [address], [place] [address] Jul, [facility] [address] [id number] [address] [place] [address], [place] [address] Jul, [facility] [address] [id number] [address] [place] [address], [place] [address] Jun, [facility] [address] [id number] [address] [place] [address], [place] [address] Jun, [facility] [address] [id number] [address] [place] [address], [place] [address] Jun, [facility] [address] [id number] [address] [place] [address], [place] [address] Jun, [facility] [address] [id number] [address] [place] [address], [place] [address] Jun, [facility] [address] [id number] [address] [place] [address], [place] [address] Jun, [facility] [address] [id number] [address] [place] [address], [place] [address] May, [facility] [address] [id number] [address] [place] [address], [place] [address] May, [facility] [address] [id number] [address] [place] [address], [place] [address] May, [facility] [address] [id number] [address] [place] [address] May, [facility] [address] [id number] [address] [place] [address], [place] [address] May, [facility] [address] [id number] [address] [place] [address], [place] [address] May, [facility] [address] [id number] [address] [place] [address], [place] [address] May, [facility] [address] [id number] [address] [place] [address], [place] [address] May, [facility] [address] [id number] [address] [place] [address], [place] [address] May, [facility] [address] [id number] [address] [place] [address], [place] [address] Apr, [facility] [address] [id number] [address] [place] [address], [place] [address] Apr, [facility] [address] [id number] [address] [place] [address], [place] [address] Apr, [facility] [address] [id number] [address] [place] [address], [place] [address] Apr, [facility] [address] [id number] [address] [place] [address], [place] [address] Mar, [facility] [address] [id number] [address] [place] [address], [place] [address] Mar, [facility] [address] [id number] [address] [place] [address], [place] [address] Mar, [facility] [address] [id number] [address] [place] [address], [place] [address] Mar, [facility] [address] [id number] [address] [place] [address], [place] [address] Mar, [facility] [address] [id number] [address] [place] [address], [place] [address] Mar, [facility] [address] [id number] [address] [place] [address], [place] [address] Feb, [facility] [address] [id number] [address] [place] [address], [place] [address] Feb, [facility] [address] [id number] [address] [place] [address], [place] [address] Feb, [facility] [address] [id number] [address] [place] [address], [place] [address] Feb, [facility] [address] [id number] [facility] [place] [address] Feb, 2013 [facility] [address] [id number] [facility] [place] [address] Feb, [facility] [address] [id number] [address] [place] [address], [place] [address] Feb, 2013 [facility] [address] [id number] [address] [place] [address], [place] [address] Feb, 2013 [facility] [address] [id number] [address] [place] [address], [place] [address] Feb, 2013 [facility] [address] [id number] [address] [place] [address], [place] [address] Feb, [facility] [address] [id number] [address] [place] [address], [place] [address] Feb, [facility] [address] [id number] [address] [place] [address], [place] [address] Feb, [facility] [address] [id number] [address] [place] [address], [place] [address] Jan, [facility] [address] [id number] [address] [place] [address], [place] [address] Jan, [facility] [address] [id number] [address] [place] [address], [place] [address] Jan, [facility] [address] [id number] [address] [place] [address], [place] [address] Jan, [facility] [address] [id number] [address] [place] [address], [place] [address] Jan, [facility] [address] [id number] [address] [place] [address], [place] [address] Jan, [facility] [address] [id number] [address] [place] [address], [place] [address] Jan, [facility] [address] [id number] [address] [place] [address], [place] [address] Jan, [facility] [address] [id number] [address] [place] [address], [place] [address] Jan, [facility] [address] [id number] [address] [place] [address], [place] [address] Jan, [facility] [address] [id number] [address] [place] [address], [place] [address] Jan, [facility] [address] [id number] [address] [place] [address], [place] [address] Jan, [facility] [address] [id number] [address] [place] [address], [place] [address] Jan, [facility] [address] [id number] [address] [place] [address], [place] [address] Jan, [facility] [address] [id number] [address] [place] [address], [place] [address] Jan, [facility] [address] [id number] [address] [place] [address], [place] [address] Jan, [facility] [address] [id number] [address] [place] [address], [place] [address] Jan, [facility] [address] [id number] [address] [place] [address], [place] [address] December, [facility] [address] [id number] [address] [place] [address], [place] [address] December, [facility] [address] [id number] [address] [place] [address], [place] [address] December, [facility] [address] [id number] [address] [place] [address], [place] [address] December, [facility] [address] [id number] [address] [place] [address], [place] [address] December, [facility] [address] [id number] [address] [place] [address], [place] [address] December, [facility] [address] [id number] [address] [place] [address], [place] [address] Nov, [facility] [address] [id number] [address] [place] [address], [place] [address] Nov, [facility] [address] [id number] [address] [place] [address], [place] [address] Nov, [facility] [address] [id number] [address] [place] [address], [place] [address] Nov, [facility] [address] [id number] [address] [place] [address], [place] [address] Nov, [facility] [address] [id number] [address] [place] [address], [place] [address] Nov, [facility] [address] [id number] [address] [place] [address], [place] [address] Nov, [facility] [address] [id number] [address] [place] [address], [place] [address] Nov, [facility] [address] [id number] [address] [place] [address], [place] [address] Nov, [facility] [address] [id number] [address] [place] [address], [place] [address] Nov, [facility] [address] [id number] [address] [place] [address], [place] [address] Nov, [facility] [address] [id number] [address] [place] [address], [place] [address] Nov, [facility] [address] [id number] [address] [place] [address], [place] [address] Nov, [facility] [address] [id number] [address] [place] [address], [place] [address] Nov, [facility] [address] [id number] [address] [place] [address], [place] [address] Nov, [facility] [address] [id number] [address] [place] [address], [place] [address] Nov, [facility] [address] [id number] [address] [place] [address], [place] [address] Oct, [facility] [address] [id number] [address] [place] [address], [place] [address] Oct, [facility] [address] [id number] [address] [place] [address], [place] [address] Oct, [facility] [address] [id number] [address] [place] [address], [place] [address] Oct, [facility] [address] [id number] [address] [place] [address], [place] [address] Oct, [facility] [address] [id number] [address] [place] [address], [place] [address] Oct, [facility] [address] [id number] [address] [place] [address], [place] [address] Oct, [facility] [address] [id number] [address] [place] [address], [place] [address] Oct, [facility] [address] [id number] [address] [place] [address], [place] [address] Sep, [facility] [address] [id number] [address] [place] [address], [place] [address] Sep, [facility] [address] [id number] [address] [place] [address], [place] [address] Sep, [facility] [address] [id number] [address] [place] [address], [place] [address] Sep, [facility] [address] [id number] [address] [place] [address], [place] [address] Sep, [facility] [address] [id number] [address] [place] [address], [place] [address] Sep, [facility] [address] [id number] [address] [place] [address], [place] [address] Aug, [facility] [address] [id number] [address] [place] [address], [place] [address] Aug, [facility] [address] [id number] [address] [place] [address], [place] [address] Aug, [facility] [address] [id number] [address] [place] [address], [place] [address] Aug, [facility] [address] [id number] [address] [place] [address], [place] [address] Aug, [facility] [address] [id number] [address] [place] [address], [place] [address] Aug, [facility] [address] [id number] [address] [place] [address], [place] [address] Aug, [facility] [address] [id number] [address] [place] [address], [place] [address] Aug, [facility] [address] [id number] [address] [place] [address], [place] [address] Jul, [facility] [address] [id number] [address] [place] [address], [place] [address] Jul, [facility] [address] [id number] [address] [place] [address], [place] [address] Jul, [facility] [address] [id number] [address] [place] [address], [place] [address] Jul, [facility] [address] [id number] [address] [place] [address], [place] [address] Jul, [facility] [address] [id number] [address] [place] [address], [place] [address] Jul, [facility] [address] [id number] [address] [place] [address], [place] [address] Jul, [facility] [address] [id number] [address] [place] [address], [place] [address] Jul, [facility] [address] [id number] [address] [place] [address], [place] [address] Jul, [facility] [address] [id number] [address] [place] [address], [place] [address] 14 Jun, 2013 [facility] [address] [id number] [address] [place] [address], [place] [address] 14 Jun, 2013 [facility] [address] [id number] [address] [place] [address], [place] [address] Jun, [facility] [address] [id number] [address] [place] [address], [place] [address] Jun, [facility] [address] [id number] [address] [place] [address], [place] [address] Jun, [facility] [address] [id number] [address] [place] [address], [place] [address] Jun, [facility] [address] [id number] [address] [place] [address], [place] [address] 31 May, 2013 [facility] [address] [id number] [address] [place] [address], [place] [address] 31 May, 2013 [facility] [address] [id number] [address] [place] [address], [place] [address] 17 May, 2013 [facility] [address] [id number] [address] [place] [address], [place] [address] 17 May, 2013 [facility] [address] [id number] [address] [place] [address], [place] [address] 14 May, 2013 [facility] [address] [id number] [address] [place] [address], [place] [address] 14 May, 2013 [facility] [address] [id number] [address] [place] [address], [place] [address] 10 May, 2013 [facility] [address] [id number] [address] [place] [address], [place] [address] 10 May, 2013 [facility] [address] [id number] [address] [place] [address] 07 May, 2013 [facility] [address] [id number] [address] [place] [address] 20 Sep, 2012 [facility] [address] [id number] [address] [place] [address], [place] [address] 19 Sep, 2012 [facility] [address] [id number] [address] [place] [address], [place] [address] 12 Apr, 2012 [facility] [address] [id number] [address] [place] [address], [place] [address] 24 Sep, 2011 [facility] [address] [id number] [address] [place] [address], [place] [address] 21 Sep, 2011 [facility] [address] [id number] [address] [place] [address], [place] [address] 21 Apr, 2011 [facility] [address] [id number] [address] [place] [address], [place] [address] 14 Apr, 2011 [facility] [address] [id number] [address] [place] [address], [place] [address] 10 Apr, 2011 [facility] [address] [id number] [address] [place] [address], [place] [address] 06 Apr, 2011 [facility] [address] [id number] [address] [place] [address], [place] [address] 04 Apr, 2011 [facility] [address] [id number] [address] [place] [address], [place] [address] 31 Mar, 2012 [facility] [address] [id number] [address] [place] [address], [place] [address] 28 Mar, 2012 [facility] [address] [id number] [address] [place] [address], [place] [address] 27 Mar, 2012 [facility] [address] [id number] [address] [place] [address], [place] [address] 10 Mar, 2012 [facility] [address] [id number] [address] [place] [address], [place] [address] 08 Mar, 2012 [facility] [address] [id number] [address] [place] [address], [place] [address] 03 Mar, 2012 [facility] [address] [id number] [address] [place] [address], [place] [address] Feb, [facility] [address] [id number] [address] [place] [address], [place] [address] Feb, [facility] [address] [id number] [address] [place] [address], [place] [address] Feb, [facility] [address] [id number] [address] [place] [address], [place] [address] Jan, [facility] [address] [id number] [address] [place] [address], [place] [address] Jan, [facility] [address] [id number] [address] [place] [address], [place] [address] Jan, [facility] [address] [id number] [address] [place] [address], [place] [address] Jan, [facility] [address] [id number] [address] [place] [address], [place] [address] Jan, [facility] [address] [id number] [address] [place] [address], [place] [address] Jan, [facility] [address] [id number] [address] [place] [address], [place] [address] Jan, [facility] [address] [id number] [address] [place] [address], [place] [address] Jan, [facility] [address] [id number] [address] [place] [address], [place] [address] December, [facility] [address] [id number] [address] [place] [address], [place] [address] December, [facility] [address] [id number] [address] [place] [address], [place] [address] December, [facility] [address] [id number] [address] [place] [address], [place] [address] December, [facility] [address] [id number] [address] [place] [address], [place] [address] December, [facility] [address] [id number] [address] [place] [address], [place] [address] December, [facility] [address] [id number] [address] [place] [address], [place] [address] 13 Nov, 2011 [facility] [address] [id number] [address] [place] [address], [place] [address] 13 Nov, 2011 [facility] [address] [id number] [address] [place] [address], [place] [address] Nov, [facility] [address] [id number] [address] [place] [address], [place] [address] Nov, [facility] [address] [id number] [address] [place] [address], [place] [address] Nov, [facility] [address] [id number] [address] [place] [address], [place] [address] Oct, [facility] [address] [id number] [address] [place] [address], [place] [address] 17 Sep, 2011 [facility] [address] [id number] [address] [place] [address], [place] [address] Aug, [facility] [address] [id number] [address] [place] [address], [place] [address] Aug, [facility] [address] [id number] [address] [place] [address], [place] [address] Aug, [facility] [address] [id number] [address] [place] [address], [place] [address] Aug, [facility] [address] [id number] [address] [place] [address], [place] [address] Aug, [facility] [address] [id number] [address] [place] [address], [place] [address] Jul, [facility] [address] [id number] [address] [place] [address], [place] [address] Jul, [facility] [address] [id number] [address] [place] [address], [place] [address] Jun, [facility] [address] [id number] [address] [place] [address], [place] [address] Jun, [facility] [address] [id number] [address] [place] [address], [place] [address] Jun, [facility] [address] [id number] [address] [place] [address], [place] [address] May, [facility] [address] [id number] [address] [place] [address], [place] [address] May, [facility] [address] [id number] [address] [place] [address], [place] [address] 16 Oct, 2010 [facility] [address] [id number] [address] [place] [address], [place] [address] Oct, [facility] [address] [id number] [address] [place] [address], [place] [address] 29 Jul, 2010 [facility] [address] [id number] [address] [place] [address], [place] [address] 08 Jul, 2010 [facility] [address] [id number] [address] [place] [address], [place] [address] Jul, [facility] [address] [id number] [address] [place] [address], [place] [address] Jul, [facility] [address] [id number] [address] [place] [address], [place] [address] Jul, [facility] [address] [id number] [address] [place] [address], [place] [address] Jun, [facility] [address] [id number] [address] [place] [address], [place] [address] Jun, [facility] [address] [id number] [address] [place] [address], [place] [address] Jun, [facility] [address] [id number] [address] [place] [address], [place] [address] May, [facility] [address] [facility] [id number] [address] [place] [address] 16 Mar, 2010 IMMUNIZATIONS No Known Immunizations [...]
--- OUTSIDE RECORDS SUMMARY | 2019-11-28 22:52 | XMS REPORT ---
Author Author Craen LYLE Organization [facility] Address [address] [place] [address] Care Team Providers Care Buck Swamper Name Role Phone LAURIE LYLE Unavailable PROBLEMS Type Condition ICD9-CM Code KBT14-JD Code Onset Dates Condition S tatus SNOMED Code Problem COPD (chronic obstructive pulmonary disease) J44.9 Active 30664194 Problem Diabetes E11.9 Active 81875030 Problem Diabetic neuropathy E11.40 Active 688776691 Problem Arthritis M19.90 Active 2611936 ALLERGIES No Information ENCOUNTERS Encounter Location Date Diagnosis [facility] [address] [facility]NOTE [facility]] [id number] [address] [place] [address] December, [facility] [address] [id number] [address] [place] [address] Aug, Arthritis M19.90 [facility] [address] [facility]NOTE [facility]] [id number] [address] [place] [address] Jul, [facility] [address] [facility]] [id number] [address] [place] [address] Jul, [facility] [address] [facility]] [id number] [address] [place] [address] Jul, [facility] [address] [id number] [address] [place] [address] Jul, [facility] [address] [facility]] [id number] [address] [place] [address] Jul, Diabetes E11.9 ; Diabetic ne uropathy E11.40 ; Arthritis M19.90 and COPD (chronic obstructive pulmonary disease) J44.9 [facility] [address] [facility]] [id number] [address] [place] [address] Jul, [facility] [address] [id number] [address] [place] [address], [place] [address] 23 Jun, 2015 [facility] [address] [id number] [address] [place] [address], [place] [address] 23 Jun, 2015 [facility] [address] [id number] [address] [place] [address], [place] [address] 17 Jun, 2014 [facility] [address] [id number] [address] [place] [address], [place] [address] 10 Jun, 2014 [facility] [address] [id number] [address] [place] [address], [place] [address] 15 May, 2015 [facility] [address] [id number] [address] [place] [address], [place] [address] 13 May, 2015 [facility] [address] [id number] [address] [place] [address], [place] [address] 07 May, 2015 [facility] [address] [id number] [address] [place] [address], [place] [address] 22 Sep, 2014 [facility] [address] [id number] [address] [place] [address], [place] [address] 21 Sep, 2014 [facility] [address] [id number] [address] [place] [address], [place] [address] 21 Sep, 2014 [facility] [address] [id number] [address] [place] [address], [place] [address] 15 Sep, 2014 [facility] [address] [id number] [address] [place] [address], [place] [address] 11 Sep, 2014 [facility] [address] [id number] [address] [place] [address], [place] [address] 09 Sep, 2014 [facility] [address] [id number] [address] [place] [address], [place] [address] 08 Sep, 2014 [facility] [address] [id number] [address] [place] [address], [place] [address] 03 Sep, 2014 [facility] [address] [id number] [address] [place] [address] [address] Apr, [facility] [address] [facility]] [id number] [address] [place] [address] Mar, [facility] [address] [facility]] [id number] [address] [place] [address] Mar, [facility] [address] [facility]] [id number] [address] [place] [address] Mar, [facility] [address] [facility]] [id number] [address] [place] [address] Mar, [facility] [address] [facility]] [id number] [address] [place] [address] Mar, [facility] [address] [facility]] [id number] [address] [place] [address] Mar, Diabetes mellitus 250.00 ; C OPD (chronic obstructive pulmonary disease) 496 ; Anxiety 300.00 and Arthritis 716.90 [facility] [address] [facility]] [id number] [address] [place] [address] Feb, [facility] [address] [facility]] [id number] [address] [place] [address] Feb, [facility] [address] [facility]] [id number] [address] [place] [address] Feb, [facility] [address] [facility]] [id number] [address] [place] [address] Feb, [facility] [address] [facility]] [id number] [address] [place] [address] Jan, Seborrheic keratosis 702.19 and Nevus 216.9 [facility] [address] [facility]] [id number] [address] [place] [address] Jan, [facility] [address] [facility]] [id number] [address] [place] [address] Jan, Routine gynecological examin ation V72.31 ; Breast cancer screening V76.10 ; Hot flashes 627.2 ; Atypical nevi 216.9 and Constipation 564.00 [facility] [address] [id number] [address] [place] [address], [place] [address] Jan, [facility] [address] [id number] [address] [place] [address], [place] [address] December, [facility] [address] [id number] [address] [place] [address], [place] [address] December, [facility] [address] [id number] [address] [place] [address], [place] [address] Nov, [facility] [address] [id number] [address] [place] [address], [place] [address] Nov, [facility] [address] [id number] [address] [place] [address], [place] [address] Oct, [facility] [address] [id number] [address] [place] [address], [place] [address] 23 Oct, 2014 [facility] [address] [id number] [address] [place] [address], [place] [address] 18 Oct, 2014 [facility] [address] [id number] [address] [place] [address], [place] [address] 18 Oct, 2014 [facility] [address] [id number] [address] [place] [address], [place] [address] 17 Oct, 2014 [facility] [address] [id number] [address] [place] [address], [place] [address] 17 Oct, 2014 [facility] [address] [id number] [address] [place] [address] 16 Oct, 2014 [facility] [address] [id number] [address] [place] [address], [place] [address] 16 Oct, 2014 [facility] [address] [id number] [address] [place] [address], [place] [address] 11 Oct, 2014 [facility] [address] [id number] [address] [place] [address], [place] [address] 11 Oct, 2014 [facility] [address] [id number] [address] [place] [address], [place] [address] Sep, 2014 [facility] [address] [id number] [address] [place] [address], [place] [address] Sep, 2014 [facility] [address] [id number] [address] [place] [address], [place] [address] 19 Sep, 2014 [facility] [address] [id number] [address] [place] [address], [place] [address] 18 Sep, 2014 [facility] [address] [id number] [address] [place] [address], [place] [address] Sep, 2014 [facility] [address] [id number] [address] [place] [address], [place] [address] Sep, 2014 [facility] [address] [id number] [address] [place] [address], [place] [address] Sep, 2014 [facility] [address] [id number] [address] [place] [address], [place] [address] Aug, [facility] [address] [id number] [address] [place] [address], [place] [address] Aug, [facility] [address] [id number] [address] [place] [address], [place] [address] Aug, [facility] [address] [id number] [address] [place] [address], [place] [address] Aug, [facility] [address] [id number] [address] [place] [address], [place] [address] Aug, [facility] [address] [id number] [address] [place] [address], [place] [address] Aug, [facility] [address] [id number] [address] [place] [address], [place] [address] Jul, [facility] [address] [id number] [address] [place] [address], [place] [address] Jul, [facility] [address] [id number] [address] [place] [address], [place] [address] Jul, [facility] [address] [id number] [address] [place] [address], [place] [address] Jul, [facility] [address] [id number] [address] [place] [address], [place] [address] Jul, [facility] [address] [id number] [address] [place] [address], [place] [address] Jun, [facility] [address] [id number] [address] [place] [address], [place] [address] Jun, [facility] [address] [id number] [address] [place] [address], [place] [address] Jun, [facility] [address] [id number] [address] [place] [address], [place] [address] Jun, [facility] [address] [id number] [address] [place] [address], [place] [address] Jun, [facility] [address] [id number] [address] [place] [address], [place] [address] Jun, [facility] [address] [id number] [address] [place] [address], [place] [address] May, [facility] [address] [id number] [address] [place] [address], [place] [address] May, [facility] [address] [id number] [address] [place] [address], [place] [address] May, [facility] [address] [id number] [address] [place] [address] May, [facility] [address] [id number] [address] [place] [address], [place] [address] May, [facility] [address] [id number] [address] [place] [address], [place] [address] May, [facility] [address] [id number] [address] [place] [address], [place] [address] May, [facility] [address] [id number] [address] [place] [address], [place] [address] May, [facility] [address] [id number] [address] [place] [address], [place] [address] May, [facility] [address] [id number] [address] [place] [address], [place] [address] Apr, [facility] [address] [id number] [address] [place] [address], [place] [address] Apr, [facility] [address] [id number] [address] [place] [address], [place] [address] Apr, [facility] [address] [id number] [address] [place] [address], [place] [address] Apr, [facility] [address] [id number] [address] [place] [address], [place] [address] Mar, [facility] [address] [id number] [address] [place] [address], [place] [address] Mar, [facility] [address] [id number] [address] [place] [address], [place] [address] Mar, [facility] [address] [id number] [address] [place] [address], [place] [address] Mar, [facility] [address] [id number] [address] [place] [address], [place] [address] Mar, [facility] [address] [id number] [address] [place] [address], [place] [address] Mar, [facility] [address] [id number] [address] [place] [address], [place] [address] Feb, [facility] [address] [id number] [address] [place] [address], [place] [address] Feb, [facility] [address] [id number] [address] [place] [address], [place] [address] Feb, [facility] [address] [id number] [address] [place] [address], [place] [address] Feb, [facility] [address] [id number] [facility] [place] [address] Feb, 2013 [facility] [address] [id number] [facility] [place] [address] Feb, [facility] [address] [id number] [address] [place] [address], [place] [address] Feb, 2013 [facility] [address] [id number] [address] [place] [address], [place] [address] Feb, 2013 [facility] [address] [id number] [address] [place] [address], [place] [address] Feb, 2013 [facility] [address] [id number] [address] [place] [address], [place] [address] Feb, [facility] [address] [id number] [address] [place] [address], [place] [address] Feb, [facility] [address] [id number] [address] [place] [address], [place] [address] Feb, [facility] [address] [id number] [address] [place] [address], [place] [address] Jan, [facility] [address] [id number] [address] [place] [address], [place] [address] Jan, [facility] [address] [id number] [address] [place] [address], [place] [address] Jan, [facility] [address] [id number] [address] [place] [address], [place] [address] Jan, [facility] [address] [id number] [address] [place] [address], [place] [address] Jan, [facility] [address] [id number] [address] [place] [address], [place] [address] Jan, [facility] [address] [id number] [address] [place] [address], [place] [address] Jan, [facility] [address] [id number] [address] [place] [address], [place] [address] Jan, [facility] [address] [id number] [address] [place] [address], [place] [address] Jan, [facility] [address] [id number] [address] [place] [address], [place] [address] Jan, [facility] [address] [id number] [address] [place] [address], [place] [address] Jan, [facility] [address] [id number] [address] [place] [place] [address], [place] [address] Jan, [facility] [address] [id number] [address] [place] [address], [place] [address] Jan, [facility] [address] [id number] [address] [place] [address], [place] [address] Jan, [facility] [address] [id number] [address] [place] [address], [place] [address] Jan, [facility] [address] [id number] [address] [place] [address], [place] [address] Jan, [facility] [address] [id number] [address] [place] [address], [place] [address] Jan, [facility] [address] [id number] [address] [address], [place] [address] December, [facility] [address] [id number] [address] [place] [address], [place] [address] December, [facility] [address] [id number] [address] [place] [address], [place] [address] December, [facility] [address] [id number] [address] [place] [address], [place] [address] December, [facility] [address] [id number] [address] [place] [address], [place] [address] December, [facility] [address] [id number] [address] [place] [address], [place] [address] December, [facility] [address] [id number] [address] [place] [address], [place] [address] Nov, [facility] [address] [id number] [address] [place] [address], [place] [address] Nov, [facility] [address] [id number] [address] [place] [address], [place] [address] Nov, [facility] [address] [id number] [address] [address], [place] [address] Nov, [facility] [address] [id number] [address] [place] [address], [place] [address] Nov, [facility] [address] [id number] [address] [place] [address], [place] [address] Nov, [facility] [address] [id number] [address] [place] [address], [place] [address] Nov, [facility] [address] [id number] [address] [place] [address], [place] [address] Nov, [facility] [address] [id number] [address] [address], [place] [address] Nov, [facility] [address] [id number] [address] [place] [address], [place] [address] Nov, [facility] [address] [id number] [address] [place] [address], [place] [address] Nov, [facility] [address] [id number] [address] [place] [address], [place] [address] Nov, [facility] [address] [id number] [address] [place] [address], [place] [address] Nov, [facility] [address] [id number] [address] [place] [address], [place] [address] Nov, [facility] [address] [id number] [address] [place] [place] [address], [place] [address] Nov, [facility] [address] [id number] [address] [place] [place] [address], [place] [address] Nov, [facility] [address] [id number] [address] [place] [address], [place] [address] Oct, [facility] [address] [id number] [address] [place] [place] [address], [place] [address] Oct, [facility] [address] [id number] [address] [place] [address], [place] [address] Oct, [facility] [address] [id number] [address] [place] [address], [place] [address] Oct, [facility] [address] [id number] [address] [place] [address], [place] [address] Oct, [facility] [address] [id number] [address] [place] [address], [place] [address] Oct, [facility] [address] [id number] [address] [place] [address], [place] [address] Oct, [facility] [address] [id number] [address] [place] [address], [place] [address] Oct, [facility] [address] [id number] [address] [place] [place] [address], [place] [address] Sep, [facility] [address] [id number] [address] [place] [address], [place] [address] Sep, [facility] [address] [id number] [address] [place] [address], [place] [address] Sep, [facility] [address] [id number] [address] [place] [address], [place] [address] Sep, [facility] [address] [id number] [address] [place] [address], [place] [address] Sep, [facility] [address] [id number] [address] [place] [address], [place] [address] Sep, [facility] [address] [id number] [address] [place] [place] [address], [place] [address] Aug, [facility] [address] [id number] [address] [place] [address], [place] [address] Aug, [facility] [address] [id number] [address] [place] [place] [address], [place] [address] Aug, [facility] [address] [id number] [address] [place] [address], [place] [address] Aug, [facility] [address] [id number] [address] [place] [address], [place] [address] Aug, [facility] [address] [id number] [address] [place] [address], [place] [address] Aug, [facility] [address] [id number] [address] [place] [address], [place] [address] Aug, [facility] [address] [id number] [address] [place] [address], [place] [address] Aug, [facility] [address] [id number] [address] [place] [address], [place] [address] Jul, [facility] [address] [id number] [address] [place] [address], [place] [address] Jul, [facility] [address] [id number] [address] [place] [address], [place] [address] Jul, [facility] [address] [id number] [address] [place] [address], [place] [address] Jul, [facility] [address] [id number] [address] [place] [address], [place] [address] Jul, [facility] [address] [id number] [address] [place] [address], [place] [address] Jul, [facility] [address] [id number] [address] [place] [address], [place] [address] Jul, [facility] [address] [id number] [address] [place] [address], [place] [address] Jul, [facility] [address] [id number] [address] [place] [address], [place] [address] Jul, [facility] [address] [id number] [address] [place] [address], [place] [address] 14 Jun, 2013 [facility] [address] [id number] [address] [place] [address], [place] [address] 14 Jun, 2013 [facility] [address] [id number] [address] [place] [address], [place] [address] Jun, [facility] [address] [id number] [address] [place] [address], [place] [address] Jun, [facility] [address] [id number] [address] [place] [place] [address], [place] [address] Jun, [facility] [address] [id number] [address] [place] [address], [place] [address] Jun, [facility] [address] [id number] [address] [place] [address], [place] [address] 31 May, 2013 [facility] [address] [id number] [address] [place] [address], [place] [address] 31 May, 2013 [facility] [address] [id number] [address] [place] [address], [place] [address] 17 May, 2013 [facility] [address] [id number] [address] [place] [address], [place] [address] 17 May, 2013 [facility] [address] [id number] [address] [place] [address], [place] [address] 14 May, 2013 [facility] [address] [id number] [address] [place] [address], [place] [address] 14 May, 2013 [facility] [address] [id number] [address] [place] [address], [place] [address] 10 May, 2013 [facility] [address] [id number] [address] [place] [address], [place] [address] 10 May, 2013 [facility] [address] [id number] [address] [place] [address] 07 May, 2013 [facility] [address] [id number] [address] [place] [address] 20 Sep, 2012 [facility] [address] [id number] [address] [place] [address], [place] [address] 19 Sep, 2012 [facility] [address] [id number] [address] [place] [address], [place] [address] 12 Apr, 2012 [facility] [address] [id number] [address] [place] [address], [place] [address] 24 Sep, 2011 [facility] [address] [id number] [address] [place] [address], [place] [address] 21 Sep, 2011 [facility] [address] [id number] [address] [place] [address], [place] [address] 21 Apr, 2011 [facility] [address] [id number] [address] [place] [address], [place] [address] 14 Apr, 2011 [facility] [address] [id number] [address] [place] [address], [place] [address] 10 Apr, 2011 [facility] [address] [id number] [address] [place] [address], [place] [address] 06 Apr, 2011 [facility] [address] [id number] [address] [place] [address], [place] [address] 04 Apr, 2011 [facility] [address] [id number] [address] [place] [address], [place] [address] 31 Mar, 2012 [facility] [address] [id number] [address] [place] [address], [place] [address] 28 Mar, 2012 [facility] [address] [id number] [address] [place] [address], [place] [address] 27 Mar, 2012 [facility] [address] [id number] [address] [place] [address], [place] [address] 10 Mar, 2012 [facility] [address] [id number] [address] [place] [address], [place] [address] 08 Mar, 2012 [facility] [address] [id number] [address] [place] [address], [place] [address] 03 Mar, 2012 [facility] [address] [id number] [address] [place] [address], [place] [address] Feb, [facility] [address] [id number] [address] [place] [address], [place] [address] Feb, [facility] [address] [id number] [address] [place] [address], [place] [address] Feb, [facility] [address] [id number] [address] [place] [address], [place] [address] Jan, [facility] [address] [id number] [address] [place] [address], [place] [address] Jan, [facility] [address] [id number] [address] [place] [address], [place] [address] Jan, [facility] [address] [id number] [address] [place] [address], [place] [address] Jan, [facility] [address] [id number] [address] [place] [address], [place] [address] Jan, [facility] [address] [id number] [address] [place] [address], [place] [address] Jan, [facility] [address] [id number] [address] [place] [address], [place] [address] Jan, [facility] [address] [id number] [address] [place] [address], [place] [address] Jan, [facility] [address] [id number] [address] [place] [address], [place] [address] December, [facility] [address] [id number] [address] [place] [address], [place] [address] December, [facility] [address] [id number] [address] [place] [address], [place] [address] December, [facility] [address] [id number] [address] [place] [address], [place] [address] December, [facility] [address] [id number] [address] [place] [address], [place] [address] December, [facility] [address] [id number] [address] [place] [address], [place] [address] December, [facility] [address] [id number] [address] [place] [address], [place] [address] 13 Nov, 2011 [facility] [address] [id number] [address] [place] [address], [place] [address] 13 Nov, 2011 [facility] [address] [id number] [address] [place] [address], [place] [address] Nov, [facility] [address] [id number] [address] [place] [address], [place] [address] Nov, [facility] [address] [id number] [address] [place] [address], [place] [address] Nov, [facility] [address] [id number] [address] [place] [address], [place] [address] Oct, [facility] [address] [id number] [address] [place] [address], [place] [address] 17 Sep, 2011 [facility] [address] [id number] [address] [place] [address], [place] [address] Aug, [facility] [address] [id number] [address] [place] [address], [place] [address] Aug, [facility] [address] [id number] [address] [place] [address], [place] [address] Aug, [facility] [address] [id number] [address] [place] [address], [place] [address] Aug, [facility] [address] [id number] [address] [place] [address], [place] [address] Aug, [facility] [address] [id number] [address] [place] [address], [place] [address] Jul, [facility] [address] [id number] [address] [place] [address], [place] [address] Jul, [facility] [address] [id number] [address] [place] [address], [place] [address] Jun, [facility] [address] [id number] [address] [place] [address], [place] [address] Jun, [facility] [address] [id number] [address] [place] [address], [place] [address] Jun, [facility] [address] [id number] [address] [place] [address], [place] [address] May, [facility] [address] [id number] [address] [place] [address], [place] [address] May, [facility] [address] [id number] [address] [place] [address], [place] [address] 16 Oct, 2010 [facility] [address] [id number] [address] [place] [address], [place] [address] Oct, [facility] [address] [id number] [address] [place] [address], [place] [address] 29 Jul, 2010 [facility] [address] [id number] [address] [place] [address], [place] [address] 08 Jul, 2010 [facility] [address] [id number] [address] [place] [address], [place] [address] Jul, [facility] [address] [id number] [address] [place] [address], [place] [address] Jul, [facility] [address] [id number] [address] [place] [address], [place] [address] Jul, [facility] [address] [id number] [address] [place] [address], [place] [address] Jun, [facility] [address] [id number] [address] [place] [address], [place] [address] Jun, [facility] [address] [id number] [address] [place] [address], [place] [address] Jun, [facility] [address] [id number] [address] [place] [address], [place] [address] May, [facility] [address] [id number]NOTE [facility]] [id number] [address] [place] [address] 16 Mar, 2010 IMMUNIZATIONS No Known Immunizations [...]
--- OUTSIDE RECORDS SUMMARY | 2019-11-28 22:53 | XMS REPORT ---
Author Author Caren LYLE Organization [facility] Address [address] [place] [address] Care Team Providers Care Tool Checker Name Role Phone LAURIE LYLE Unavailable PROBLEMS Type Condition ICD9-CM Code [id number] Code Onset Dates Condition S tatus SNOMED Code Problem COPD (chronic obstructive pulmonary disease) J44.9 Active 93233234 Problem Diabetes E11.9 Active 70544152 Problem Diabetic neuropathy E11.40 Active 251274992 Problem Arthritis M19.90 Active 8538019 ALLERGIES No Information ENCOUNTERS Encounter Location Date Diagnosis [facility] [address] [facility] [id number] [address] [place] [id number] December, [facility] [address] [id number] [address] [place] [address] Aug, Arthritis M19.90 [facility] [address] [facility] [id number] [address] [place] [id number] Jul, [facility] [address] [facility] [id number] [address] [place] [address] Jul, [facility] [address] [facility] [id number] [address] [place] [address] Jul, [facility] [address] [id number] [address] [place] [address] Jul, [facility] [address] [facility] [id number] [address] [place] [id number] Jul, Diabetes E11.9 ; Diabetic ne uropathy E11.40 ; Arthritis M19.90 and COPD (chronic obstructive pulmonary disease) J44.9 [facility] [address] [facility] [id number] [address] [place] [address] Jul, [facility] [address] [id number] [address] [place] [address], [place] [address] 23 Jun, 2015 [facility] [address] [id number] [address] [place] [address], [place] [address] 23 Jun, 2015 [facility] [address] [id number] [address] [place] [address], [place] [address] 17 Jun, 2014 [facility] [address] [id number] [address] [place] [address], [place] [address] 10 Jun, 2014 [facility] [address] [id number] [address] [place] [address], [place] [address] 15 May, 2015 [facility] [address] [id number] [address] [place] [address], [place] [address] 13 May, 2015 [facility] [address] [id number] [address] [place] [address], [place] [address] 07 May, 2015 [facility] [address] [id number] [address] [place] [address], [place] [address] 22 Sep, 2014 [facility] [address] [id number] [address] [place] [address], [place] [address] 21 Sep, 2014 [facility] [address] [id number] [address] [place] [address], [place] [address] 21 Sep, 2014 [facility] [address] [id number] [address] [place] [address], [place] [address] 15 Sep, 2014 [facility] [address] [id number] [address] [place] [address], [place] [address] 11 Sep, 2014 [facility] [address] [id number] [address] [place] [address], [place] [address] 09 Sep, 2014 [facility] [address] [id number] [address] [place] [address], [place] [address] 08 Sep, 2014 [facility] [address] [id number] [address] [place] [address], [place] [address] 03 Sep, 2014 [facility] [address] [id number] [address] [place] [address] [address] Apr, [facility] [address] [facility] [id number] [address] [place] [id number] Mar, [facility] [address] [facility] [id number] [address] [place] [address] Mar, [facility] [address] [facility] [id number] [address] [place] [address] Mar, [facility] [address] [facility] [id number] [address] [place] [id number] Mar, [facility] [address] [facility] [id number] [address] [place] [address] Mar, [facility] [address] [facility] [id number] [address] [place] [address] Mar, Diabetes mellitus 250.00 ; C OPD (chronic obstructive pulmonary disease) 496 ; Anxiety 300.00 and Arthritis 716.90 [facility] [address] [facility] [id number] [address] [place] [address] Feb, [facility] [address] [facility] [id number] [address] [place] [id number] Feb, [facility] [address] [facility] [id number] [address] [place] [address] Feb, [facility] [address] [facility] [id number] [address] [place] [id number] Feb, [facility] [address] [facility] [id number] [address] [place] [address] Jan, Seborrheic keratosis 702.19 and Nevus 216.9 [facility] [address] [facility] [id number] [address] [place] [id number] Jan, [facility] [address] [facility] [id number] [address] [place] [address] Jan, Routine gynecological examin ation V72.31 ; Breast cancer screening V76.10 ; Hot flashes 627.2 ; Atypical nevi 216.9 and Constipation 564.00 [facility] [address] [id number] [address] [place] [address], [place] [address] Jan, [facility] [address] [id number] [address] [place] [address], [place] [address] December, [facility] [address] [id number] [address] [place] [address], [place] [address] December, [facility] [address] [id number] [address] [place] [address], [place] [address] Nov, [facility] [address] [id number] [address] [place] [address], [place] [address] Nov, [facility] [address] [id number] [address] [place] [address], [place] [address] Oct, [facility] [address] [id number] [address] [place] [address], [place] [address] 23 Oct, 2014 [facility] [address] [id number] [address] [place] [address], [place] [address] 18 Oct, 2014 [facility] [address] [id number] [address] [place] [address], [place] [address] 18 Oct, 2014 [facility] [address] [id number] [address] [place] [address], [place] [address] 17 Oct, 2014 [facility] [address] [id number] [address] [place] [address], [place] [address] 17 Oct, 2014 [facility] [address] [id number] [address] [place] [address] 16 Oct, 2014 [facility] [address] [id number] [address] [place] [address], [place] [address] 16 Oct, 2014 [facility] [address] [id number] [address] [place] [address], [place] [address] 11 Oct, 2014 [facility] [address] [id number] [address] [place] [address], [place] [address] 11 Oct, 2014 [facility] [address] [id number] [address] [place] [address], [place] [address] Sep, 2014 [facility] [address] [id number] [address] [place] [address], [place] [address] Sep, 2014 [facility] [address] [id number] [address] [place] [address], [place] [address] 19 Sep, 2014 [facility] [address] [id number] [address] [place] [address], [place] [address] 18 Sep, 2014 [facility] [address] [id number] [address] [place] [address], [place] [address] Sep, 2014 [facility] [address] [id number] [address] [place] [address], [place] [address] Sep, 2014 [facility] [address] [id number] [address] [place] [address], [place] [address] Sep, 2014 [facility] [address] [id number] [address] [place] [address], [place] [address] Aug, [facility] [address] [id number] [address] [place] [address], [place] [address] Aug, [facility] [address] [id number] [address] [place] [address], [place] [address] Aug, [facility] [address] [id number] [address] [place] [address], [place] [address] Aug, [facility] [address] [id number] [address] [place] [address], [place] [address] Aug, [facility] [address] [id number] [address] [place] [address], [place] [address] Aug, [facility] [address] [id number] [address] [place] [address], [place] [address] Jul, [facility] [address] [id number] [address] [place] [address], [place] [address] Jul, [facility] [address] [id number] [address] [place] [address], [place] [address] Jul, [facility] [address] [id number] [address] [place] [address], [place] [address] Jul, [facility] [address] [id number] [address] [place] [address], [place] [address] Jul, [facility] [address] [id number] [address] [place] [address], [place] [address] Jun, [facility] [address] [id number] [address] [place] [address], [place] [address] Jun, [facility] [address] [id number] [address] [place] [address], [place] [address] Jun, [facility] [address] [id number] [address] [place] [address], [place] [address] Jun, [facility] [address] [id number] [address] [place] [address], [place] [address] Jun, [facility] [address] [id number] [address] [place] [address], [place] [address] Jun, [facility] [address] [id number] [address] [place] [address], [place] [address] May, [facility] [address] [id number] [address] [place] [address], [place] [address] May, [facility] [address] [id number] [address] [place] [address], [place] [address] May, [facility] [address] [id number] [address] [place] [address] May, [facility] [address] [id number] [address] [place] [address], [place] [address] May, [facility] [address] [id number] [address] [place] [address], [place] [address] May, [facility] [address] [id number] [address] [place] [address], [place] [address] May, [facility] [address] [id number] [address] [place] [address], [place] [address] May, [facility] [address] [id number] [address] [place] [address], [place] [address] May, [facility] [address] [id number] [address] [place] [address], [place] [address] Apr, [facility] [address] [id number] [address] [place] [address], [place] [address] Apr, [facility] [address] [id number] [address] [place] [address], [place] [address] Apr, [facility] [address] [id number] [address] [place] [address], [place] [address] Apr, [facility] [address] [id number] [address] [place] [address], [place] [address] Mar, [facility] [address] [id number] [address] [place] [address], [place] [address] Mar, [facility] [address] [id number] [address] [place] [address], [place] [address] Mar, [facility] [address] [id number] [address] [place] [address], [place] [address] Mar, [facility] [address] [id number] [address] [place] [address], [place] [address] Mar, [facility] [address] [id number] [address] [place] [address], [place] [address] Mar, [facility] [address] [id number] [address] [place] [address], [place] [address] Feb, [facility] [address] [id number] [address] [place] [address], [place] [address] Feb, [facility] [address] [id number] [address] [place] [address], [place] [address] Feb, [facility] [address] [id number] [address] [place] [address], [place] [address] Feb, [facility] [address] [id number] [facility] [address] Feb, 2013 [facility] [address] [id number] [facility] [place] [address] Feb, [facility] [address] [id number] [address] [place] [address], [place] [address] Feb, 2013 [facility] [address] [id number] [address] [place] [address], [place] [address] Feb, 2013 [facility] [address] [id number] [address] [place] [address], [place] [address] Feb, 2013 [facility] [address] [id number] [address] [place] [address], [place] [address] Feb, [facility] [address] [id number] [address] [place] [address], [place] [address] Feb, [facility] [address] [id number] [address] [place] [address], [place] [address] Feb, [facility] [address] [id number] [address] [place] [address], [place] [address] Jan, [facility] [address] [id number] [address] [place] [address], [place] [address] Jan, [facility] [address] [id number] [address] [place] [address], [place] [address] Jan, [facility] [address] [id number] [address] [place] [address], [place] [address] Jan, [facility] [address] [id number] [address] [place] [address], [place] [address] Jan, [facility] [address] [id number] [address] [place] [address], [place] [address] Jan, [facility] [address] [id number] [address] [place] [address], [place] [address] Jan, [facility] [address] [id number] [address] [place] [address], [place] [address] Jan, [facility] [address] [id number] [address] [place] [address], [place] [address] Jan, [facility] [address] [id number] [address] [place] [address], [place] [address] Jan, [facility] [address] [id number] [address] [place] [address], [place] [address] Jan, [facility] [address] [id number] [address] [place] [address], [place] [address] Jan, [facility] [address] [id number] [address] [place] [address], [place] [address] Jan, [facility] [address] [id number] [address] [place] [address], [place] [address] Jan, [facility] [address] [id number] [address] [place] [address], [place] [address] Jan, [facility] [address] [id number] [address] [place] [address], [place] [address] Jan, [facility] [address] [id number] [address] [place] [address], [place] [address] Jan, [facility] [address] [id number] [address] [place] [address], [place] [address] December, [facility] [address] [id number] [address] [place] [address], [place] [address] December, [facility] [address] [id number] [address] [place] [address], [place] [address] December, [facility] [address] [id number] [address] [place] [address], [place] [address] December, [facility] [address] [id number] [address] [place] [address], [place] [address] December, [facility] [address] [id number] [address] [place] [address], [place] [address] December, [facility] [address] [id number] [address] [place] [address], [place] [address] Nov, [facility] [address] [id number] [address] [place] [address], [place] [address] Nov, [facility] [address] [id number] [address] [place] [address], [place] [address] Nov, [facility] [address] [id number] [address] [place] [address], [place] [address] Nov, [facility] [address] [id number] [address] [place] [address], [place] [address] Nov, [facility] [address] [id number] [address] [place] [address], [place] [address] Nov, [facility] [address] [id number] [address] [place] [address], [place] [address] Nov, [facility] [address] [id number] [address] [place] [address], [place] [address] Nov, [facility] [address] [id number] [address] [place] [address], [place] [address] Nov, [facility] [address] [id number] [address] [place] [address], [place] [address] Nov, [facility] [address] [id number] [address] [place] [address], [place] [address] Nov, [facility] [address] [id number] [address] [place] [address], [place] [address] Nov, [facility] [address] [id number] [address] [place] [address], [place] [address] Nov, [facility] [address] [id number] [address] [place] [address], [place] [address] Nov, [facility] [address] [id number] [address] [place] [address], [place] [address] Nov, [facility] [address] [id number] [address] [place] [address], [place] [address] Nov, [facility] [address] [id number] [address] [place] [address], [place] [address] Oct, [facility] [address] [id number] [address] [place] [address], [place] [address] Oct, [facility] [address] [id number] [address] [place] [address], [place] [address] Oct, [facility] [address] [id number] [address] [place] [address], [place] [address] Oct, [facility] [address] [id number] [address] [place] [address], [place] [address] Oct, [facility] [address] [id number] [address] [place] [address], [place] [id number] Oct, [facility] [address] [id number] [address] [place] [address], [place] [id number] Oct, [facility] [address] [id number] [address] [place] [address], [place] [id number] Oct, [facility] [address] [id number] [address] [place] [address], [place] [id number] Sep, [facility] [address] [id number] [address] [place] [address], [place] [id number] Sep, [facility] [address] [id number] [address] [place] [address], [place] [id number] Sep, [facility] [address] [id number] [address] [place] [address], [place] [id number] Sep, [facility] [address] [id number] [address] [place] [address], [place] [address] Sep, [facility] [address] [id number] [address] [place] [address], [place] [id number] Sep, [facility] [address] [id number] [address] [place] [address], [place] [address] Aug, [facility] [address] [id number] [address] [place] [address], [place] [address] Aug, [facility] [address] [id number] [address] [place] [address], [place] [id number] Aug, [facility] [address] [id number] [address] [place] [address], [place] [id number] Aug, [facility] [address] [id number] [address] [place] [address], [place] [id number] Aug, [facility] [address] [id number] [address] [place] [address], [place] [address] Aug, [facility] [address] [id number] [address] [place] [address], [place] [address] Aug, [facility] [address] [id number] [address] [place] [address], [place] [id number] Aug, [facility] [address] [id number] [address] [place] [address], [place] [address] Jul, [facility] [address] [id number] [address] [place] [address], [place] [id number] Jul, [facility] [address] [id number] [address] [place] [address], [place] [id number] Jul, [facility] [address] [id number] [address] [place] [address], [place] [id number] Jul, [facility] [address] [id number] [address] [place] [address], [place] [id number] Jul, [facility] [address] [id number] [address] [place] [address], [place] [id number] Jul, [facility] [address] [id number] [address] [place] [address], [place] [id number] Jul, [facility] [address] [id number] [address] [place] [address], [place] [id number] Jul, [facility] [address] [id number] [address] [place] [address], [place] [id number] Jul, [facility] [address] [id number] [address] [place] [address], [place] [id number] 14 Jun, 2013 [facility] [address] [id number] [address] [place] [address], [place] [id number] 14 Jun, 2013 [facility] [address] [id number] [address] [place] [address], [place] [address] Jun, [facility] [address] [id number] [address] [place] [address], [place] [id number] Jun, [facility] [address] [id number] [address] [place] [address], [place] [id number] Jun, [facility] [address] [id number] [address] [place] [address], [place] [id number] Jun, [facility] [address] [id number] [address] [place] [address], [place] [address] 31 May, 2013 [facility] [address] [id number] [address] [place] [address], [place] [id number] 31 May, 2013 [facility] [address] [id number] [address] [place] [address], [place] [id number] 17 May, 2013 [facility] [address] [id number] [address] [place] [address], [place] [id number] 17 May, 2013 [facility] [address] [id number] [address] [place] [address], [place] [id number] 14 May, 2013 [facility] [address] [id number] [address] [place] [address], [place] [address] 14 May, 2013 [facility] [address] [id number] [address] [place] [address], [place] [id number] 10 May, 2013 [facility] [address] [id number] [address] [place] [address], [place] [id number] 10 May, 2013 [facility] [address] [id number] [address] [place] [id number] 07 May, 2013 [facility] [address] [id number] [address] [place] [id number] 20 Sep, 2012 [facility] [address] [id number] [address] [place] [address], [place] [id number] 19 Sep, 2012 [facility] [address] [id number] [address] [place] [address], [place] [id number] 12 Apr, 2012 [facility] [address] [id number] [address] [place] [address], [place] [address] 24 Sep, 2011 [facility] [address] [id number] [address] [place] [address], [place] [address] 21 Sep, 2011 [facility] [address] [id number] [address] [place] [address], [place] [id number] 21 Apr, 2011 [facility] [address] [id number] [address] [place] [address], [place] [id number] 14 Apr, 2011 [facility] [address] [id number] [address] [place] [address], [place] [id number] 10 Apr, 2011 [facility] [address] [id number] [address] [place] [address], [place] [id number] 06 Apr, 2011 [facility] [address] [id number] [address] [place] [address], [place] [id number] 04 Apr, 2011 [facility] [address] [id number] [address] [place] [address], [place] [id number] 31 Mar, 2012 [facility] [address] [id number] [address] [place] [address], [place] [id number] 28 Mar, 2012 [facility] [address] [id number] [address] [place] [address], [place] [id number] 27 Mar, 2012 [facility] [address] [id number] [address] [place] [address], [place] [id number] 10 Mar, 2012 [facility] [address] [id number] [address] [place] [address], [place] [id number] 08 Mar, 2012 [facility] [address] [id number] [address] [place] [address], [place] [id number] 03 Mar, 2012 [facility] [address] [id number] [address] [place] [address], [place] [id number] Feb, [facility] [address] [id number] [address] [place] [address], [place] [id number] Feb, [facility] [address] [id number] [address] [place] [address], [place] [id number] Feb, [facility] [address] [id number] [address] [place] [address], [place] [id number] Jan, [facility] [address] [id number] [address] [place] [address], [place] [id number] Jan, [facility] [address] [id number] [address] [place] [address], [place] [id number] Jan, [facility] [address] [id number] [address] [place] [address], [place] [id number] Jan, [facility] [address] [id number] [address] [place] [address], [place] [id number] Jan, [facility] [address] [id number] [address] [place] [address], [place] [id number] Jan, [facility] [address] [id number] [address] [place] [address], [place] [id number] Jan, [facility] [address] [id number] [address] [place] [address], [place] [id number] Jan, [facility] [address] [id number] [address] [place] [address], [place] [id number] December, [facility] [address] [id number] [address] [place] [address], [place] [id number] December, [facility] [address] [id number] [address] [place] [address], [place] [id number] December, [facility] [address] [id number] [address] [place] [address], [place] [id number] December, [facility] [address] [id number] [address] [place] [address], [place] [id number] December, [facility] [address] [id number] [address] [place] [address], [place] [id number] December, [facility] [address] [id number] [address] [place] [address], [place] [id number] 13 Nov, 2011 [facility] [address] [id number] [address] [place] [address], [place] [id number] 13 Nov, 2011 [facility] [address] [id number] [address] [place] [address], [place] [id number] Nov, [facility] [address] [id number] [address] [place] [address], [place] [address] Nov, [facility] [address] [id number] [address] [place] [address], [place] [id number] Nov, [facility] [address] [id number] [address] [place] [address], [place] [id number] Oct, [facility] [address] [id number] [address] [place] [address], [place] [id number] 17 Sep, 2011 [facility] [address] [id number] [address] [place] [address], [place] [id number] Aug, [facility] [address] [id number] [address] [place] [address], [place] [id number] Aug, [facility] [address] [id number] [address] [place] [address], [place] [id number] Aug, [facility] [address] [id number] [address] [place] [address], [place] [id number] Aug, [facility] [address] [id number] [address] [place] [address], [place] [id number] Aug, [facility] [address] [id number] [address] [place] [address], [place] [id number] Jul, [facility] [address] [id number] [address] [place] [address], [place] [id number] Jul, [facility] [address] [id number] [address] [place] [address], [place] [id number] Jun, [facility] [address] [id number] [address] [place] [address], [place] [id number] Jun, [facility] [address] [id number] [address] [place] [address], [place] [id number] Jun, [facility] [address] [id number] [address] [place] [address], [place] [id number] May, [facility] [address] [id number] [address] [place] [address], [place] [address] May, [facility] [address] [id number] [address] [place] [address], [place] [id number] 16 Oct, 2010 [facility] [address] [id number] [address] [place] [address], [place] [id number] Oct, [facility] [address] [id number] [address] [place] [address], [place] [id number] 29 Jul, 2010 [facility] [address] [id number] [address] [place] [address], [place] [id number] 08 Jul, 2010 [facility] [address] [id number] [address] [place] [address], [place] [id number] Jul, [facility] [address] [id number] [address] [place] [address], [place] [id number] Jul, [facility] [address] [id number] [address] [place] [address], [place] [id number] Jul, [facility] [address] [id number] [address] [place] [address], [place] [id number] Jun, [facility] [address] [id number] [address] [place] [address], [place] [id number] Jun, [facility] [address] [id number] [address] [place] [address], [place] [id number] Jun, [facility] [address] [id number] [address] [place] [address], [place] [id number] May, [facility] [address] [facility] [id number] [address] [place] [address] 16 Mar, 2010 IMMUNIZATIONS No Known Immunizations [...]
--- OUTSIDE RECORDS SUMMARY | 2019-11-28 22:53 | XMS REPORT ---
Author Author Caren LYLE Organization [facility] Address [address] [place] [address] Care Team Providers Care Energy Professional Name Role Phone LAURIE LYLE Unavailable PROBLEMS Type Condition ICD9-CM Code [id number] Code Onset Dates Condition S tatus SNOMED Code Problem COPD (chronic obstructive pulmonary disease) J44.9 Active 70659204 Problem Diabetes E11.9 Active 34881620 Problem Diabetic neuropathy E11.40 Active 901295887 Problem Arthritis M19.90 Active [id number] ALLERGIES No Information ENCOUNTERS Encounter Location Date Diagnosis [facility] [address] [facility] [id number] [address] [place] [address] December, [facility] [address] [id number] [address] [place] [address] Aug, Arthritis M19.90 [facility] [address] [facility] [id number] [address] [place] [address] Jul, [facility] [address] [facility] [id number] [address] [place] [address] Jul, [facility] [address] [facility] [id number] [address] [place] [address] Jul, [facility] [address] [id number] [address] [place] [address] Jul, [facility] [address] [facility] [id number] [address] [place] [address] Jul, Diabetes E11.9 ; Diabetic ne uropathy E11.40 ; Arthritis M19.90 and COPD (chronic obstructive pulmonary disease) J44.9 [facility] [address] [facility] [id number] [address] [place] [address] Jul, [facility] [address] [id number] [address] [place] [address], [place] [address] 23 Jun, 2015 [facility] [address] [id number] [address] [place] [address], [place] [address] 23 Jun, 2015 [facility] [address] [id number] [address] [place] [address], [place] [address] 17 Jun, 2014 [facility] [address] [id number] [address] [place] [address], [place] [address] 10 Jun, 2014 [facility] [address] [id number] [address] [place] [address], [place] [address] 15 May, 2015 [facility] [address] [id number] [address] [place] [address], [place] [address] 13 May, 2015 [facility] [address] [id number] [address] [place] [address], [place] [address] 07 May, 2015 [facility] [address] [id number] [address] [place] [address], [place] [address] 22 Sep, 2014 [facility] [address] [id number] [address] [place] [address], [place] [address] 21 Sep, 2014 [facility] [address] [id number] [address] [place] [address], [place] [address] 21 Sep, 2014 [facility] [address] [id number] [address] [place] [address], [place] [address] 15 Sep, 2014 [facility] [address] [id number] [address] [place] [address], [place] [address] 11 Sep, 2014 [facility] [address] [id number] [address] [place] [address], [place] [address] 09 Sep, 2014 [facility] [address] [id number] [address] [place] [address], [place] [address] 08 Sep, 2014 [facility] [address] [id number] [address] [place] [address], [place] [address] 03 Sep, 2014 [facility] [address] [id number] [address] [place] [address] [address] Apr, [facility] [address] [facility] [id number] [address] [place] [address] Mar, [facility] [address] [facility] [id number] [address] [place] [address] Mar, [facility] [address] [facility] [id number] [address] [place] [address] Mar, [facility] [address] [facility] [id number] [address] [place] [address] Mar, [facility] [address] [facility] [id number] [address] [place] [address] Mar, [facility] [address] [facility] [id number] [address] [place] [address] Mar, Diabetes mellitus 250.00 ; C OPD (chronic obstructive pulmonary disease) 496 ; Anxiety 300.00 and Arthritis 716.90 [facility] [address] [facility] [id number] [address] [place] [address] Feb, [facility] [address] [facility] [id number] [address] [place] [address] Feb, [facility] [address] [facility] [id number] [address] [place] [address] Feb, [facility] [address] [facility] [id number] [address] [place] [address] Feb, [facility] [address] [facility] [id number] [address] [place] [address] Jan, Seborrheic keratosis 702.19 and Nevus 216.9 [facility] [address] [facility] [id number] [address] [place] [address] Jan, [facility] [address] [facility] [id number] [address] [place] [address] Jan, Routine gynecological examin ation V72.31 ; Breast cancer screening V76.10 ; Hot flashes 627.2 ; Atypical nevi 216.9 and Constipation 564.00 [facility] [address] [id number] [address] [place] [address], [place] [address] Jan, [facility] [address] [id number] [address] [place] [address], [place] [address] December, [facility] [address] [id number] [address] [place] [address], [place] [address] December, [facility] [address] [id number] [address] [place] [address], [place] [address] Nov, [facility] [address] [id number] [address] [place] [address], [place] [address] Nov, [facility] [address] [id number] [address] [place] [address], [place] [address] Oct, [facility] [address] [id number] [address] [place] [address], [place] [address] 23 Oct, 2014 [facility] [address] [id number] [address] [place] [address], [place] [address] 18 Oct, 2014 [facility] [address] [id number] [address] [place] [address], [place] [address] 18 Oct, 2014 [facility] [address] [id number] [address] [place] [address], [place] [address] 17 Oct, 2014 [facility] [address] [id number] [address] [place] [address], [place] [address] 17 Oct, 2014 [facility] [address] [id number] [address] [place] [address] 16 Oct, 2014 [facility] [address] [id number] [address] [place] [address], [place] [address] 16 Oct, 2014 [facility] [address] [id number] [address] [place] [address], [place] [address] 11 Oct, 2014 [facility] [address] [id number] [address] [place] [address], [place] [address] 11 Oct, 2014 [facility] [address] [id number] [address] [place] [address], [place] [address] Sep, 2014 [facility] [address] [id number] [address] [place] [address], [place] [address] Sep, 2014 [facility] [address] [id number] [address] [place] [address], [place] [address] 19 Sep, 2014 [facility] [address] [id number] [address] [place] [address], [place] [address] 18 Sep, 2014 [facility] [address] [id number] [address] [place] [address], [place] [address] Sep, 2014 [facility] [address] [id number] [address] [place] [address], [place] [address] Sep, 2014 [facility] [address] [id number] [address] [place] [address], [place] [address] Sep, 2014 [facility] [address] [id number] [address] [place] [address], [place] [address] Aug, [facility] [address] [id number] [address] [place] [address], [place] [address] Aug, [facility] [address] [id number] [address] [place] [address], [place] [address] Aug, [facility] [address] [id number] [address] [place] [address], [place] [address] Aug, [facility] [address] [id number] [address] [place] [address], [place] [address] Aug, [facility] [address] [id number] [address] [place] [address], [place] [address] Aug, [facility] [address] [id number] [address] [place] [address], [place] [address] Jul, [facility] [address] [id number] [address] [place] [address], [place] [address] Jul, [facility] [address] [id number] [address] [place] [address], [place] [address] Jul, [facility] [address] [id number] [address] [place] [address], [place] [address] Jul, [facility] [address] [id number] [address] [place] [address], [place] [address] Jul, [facility] [address] [id number] [address] [place] [address], [place] [address] Jun, [facility] [address] [id number] [address] [place] [address], [place] [address] Jun, [facility] [address] [id number] [address] [place] [address], [place] [address] Jun, [facility] [address] [id number] [address] [place] [address], [place] [address] Jun, [facility] [address] [id number] [address] [place] [address], [place] [address] Jun, [facility] [address] [id number] [address] [place] [address], [place] [address] Jun, [facility] [address] [id number] [address] [place] [address], [place] [address] May, [facility] [address] [id number] [address] [place] [address], [place] [address] May, [facility] [address] [id number] [address] [place] [address], [place] [address] May, [facility] [address] [id number] [address] [place] [address] May, [facility] [address] [id number] [address] [place] [address], [place] [address] May, [facility] [address] [id number] [address] [place] [address], [place] [address] May, [facility] [address] [id number] [address] [place] [address], [place] [address] May, [facility] [address] [id number] [address] [place] [address], [place] [address] May, [facility] [address] [id number] [address] [place] [address], [place] [address] May, [facility] [address] [id number] [address] [place] [address], [place] [address] Apr, [facility] [address] [id number] [address] [place] [address], [place] [address] Apr, [facility] [address] [id number] [address] [place] [address], [place] [address] Apr, [facility] [address] [id number] [address] [place] [address], [place] [address] Apr, [facility] [address] [id number] [address] [place] [address], [place] [address] Mar, [facility] [address] [id number] [address] [place] [address], [place] [address] Mar, [facility] [address] [id number] [address] [place] [address], [place] [address] Mar, [facility] [address] [id number] [address] [place] [address], [place] [address] Mar, [facility] [address] [id number] [address] [place] [address], [place] [address] Mar, [facility] [address] [id number] [address] [place] [address], [place] [address] Mar, [facility] [address] [id number] [address] [place] [address], [place] [address] Feb, [facility] [address] [id number] [address] [place] [address], [place] [address] Feb, [facility] [address] [id number] [address] [place] [address], [place] [address] Feb, [facility] [address] [id number] [address] [place] [address], [place] [address] Feb, [facility] [address] [id number] [facility] [place] [address] Feb, 2013 [facility] [address] [id number] [facility] [place] [address] Feb, [facility] [address] [id number] [address] [place] [address], [place] [address] Feb, 2013 [facility] [address] [id number] [address] [place] [address], [place] [address] Feb, 2013 [facility] [address] [id number] [address] [place] [address], [place] [address] Feb, 2013 [facility] [address] [id number] [address] [place] [address], [place] [address] Feb, [facility] [address] [id number] [address] [place] [address], [place] [address] Feb, [facility] [address] [id number] [address] [place] [address], [place] [address] Feb, [facility] [address] [id number] [address] [place] [address], [place] [address] Jan, [facility] [address] [id number] [address] [place] [address], [place] [address] Jan, [facility] [address] [id number] [address] [place] [address], [place] [address] Jan, [facility] [address] [id number] [address] [place] [address], [place] [address] Jan, [facility] [address] [id number] [address] [place] [address], [place] [address] Jan, [facility] [address] [id number] [address] [place] [address], [place] [address] Jan, [facility] [address] [id number] [address] [place] [address], [place] [address] Jan, [facility] [address] [id number] [address] [place] [address], [place] [address] Jan, [facility] [address] [id number] [address] [place] [address], [place] [address] Jan, [facility] [address] [id number] [address] [place] [address], [place] [address] Jan, [facility] [address] [id number] [address] [place] [address], [place] [address] Jan, [facility] [address] [id number] [address] [place] [address], [place] [address] Jan, [facility] [address] [id number] [address] [place] [address], [place] [address] Jan, [facility] [address] [id number] [address] [place] [address], [place] [address] Jan, [facility] [address] [id number] [address] [place] [address], [place] [address] Jan, [facility] [address] [id number] [address] [place] [address], [place] [address] Jan, [facility] [address] [id number] [address] [place] [address], [place] [address] Jan, [facility] [address] [id number] [address] [place] [address], [place] [address] December, [facility] [address] [id number] [address] [place] [address], [place] [address] December, [facility] [address] [id number] [address] [place] [address], [place] [address] December, [facility] [address] [id number] [address] [place] [address], [place] [address] December, [facility] [address] [id number] [address] [place] [address], [place] [address] December, [facility] [address] [id number] [address] [place] [address], [place] [address] December, [facility] [address] [id number] [address] [place] [address], [place] [address] Nov, [facility] [address] [id number] [address] [place] [address], [place] [address] Nov, [facility] [address] [id number] [address] [place] [address], [place] [address] Nov, [facility] [address] [id number] [address] [place] [address], [place] [address] Nov, [facility] [address] [id number] [address] [place] [address], [place] [address] Nov, [facility] [address] [id number] [address] [place] [address], [place] [address] Nov, [facility] [address] [id number] [address] [place] [address], [place] [address] Nov, [facility] [address] [id number] [address] [place] [address], [place] [address] Nov, [facility] [address] [id number] [address] [place] [address], [place] [address] Nov, [facility] [address] [id number] [address] [place] [address], [place] [address] Nov, [facility] [address] [id number] [address] [place] [address], [place] [address] Nov, [facility] [address] [id number] [address] [place] [address], [place] [address] Nov, [facility] [address] [id number] [address] [place] [address], [place] [address] Nov, [facility] [address] [id number] [address] [place] [address], [place] [address] Nov, [facility] [address] [id number] [address] [place] [address], [place] [address] Nov, [facility] [address] [id number] [address] [place] [address], [place] [address] Nov, [facility] [address] [id number] [address] [place] [address], [place] [address] Oct, [facility] [address] [id number] [address] [place] [address], [place] [address] Oct, [facility] [address] [id number] [address] [place] [address], [place] [address] Oct, [facility] [address] [id number] [address] [place] [address], [place] [address] Oct, [facility] [address] [id number] [address] [place] [address], [place] [address] Oct, [facility] [address] [id number] [address] [place] [address], [place] [address] Oct, [facility] [address] [id number] [address] [place] [address], [place] [address] Oct, [facility] [address] [id number] [address] [place] [address], [place] [address] Oct, [facility] [address] [id number] [address] [place] [address], [place] [address] Sep, [facility] [address] [id number] [address] [place] [address], [place] [address] Sep, [facility] [address] [id number] [address] [place] [address], [place] [address] Sep, [facility] [address] [id number] [address] [place] [address], [place] [address] Sep, [facility] [address] [id number] [address] [place] [address], [place] [address] Sep, [facility] [address] [id number] [address] [place] [address], [place] [address] Sep, [facility] [address] [id number] [address] [place] [address], [place] [address] Aug, [facility] [address] [id number] [address] [place] [address], [place] [address] Aug, [facility] [address] [id number] [address] [place] [address], [place] [address] Aug, [facility] [address] [id number] [address] [place] [address], [place] [address] Aug, [facility] [address] [id number] [address] [place] [address], [place] [address] Aug, [facility] [address] [id number] [address] [place] [address], [place] [address] Aug, [facility] [address] [id number] [address] [place] [address], [place] [address] Aug, [facility] [address] [id number] [address] [place] [address], [place] [address] Aug, [facility] [address] [id number] [address] [place] [address], [place] [address] Jul, [facility] [address] [id number] [address] [place] [address], [place] [address] Jul, [facility] [address] [id number] [address] [place] [address], [place] [address] Jul, [facility] [address] [id number] [address] [place] [address], [place] [address] Jul, [facility] [address] [id number] [address] [place] [address], [place] [address] Jul, [facility] [address] [id number] [address] [place] [address], [place] [address] Jul, [facility] [address] [id number] [address] [place] [address], [place] [address] Jul, [facility] [address] [id number] [address] [place] [address], [place] [address] Jul, [facility] [address] [id number] [address] [place] [address], [place] [address] Jul, [facility] [address] [id number] [address] [place] [address], [place] [address] 14 Jun, 2013 [facility] [address] [id number] [address] [place] [address], [place] [address] 14 Jun, 2013 [facility] [address] [id number] [address] [place] [address], [place] [address] Jun, [facility] [address] [id number] [address] [place] [address], [place] [address] Jun, [facility] [address] [id number] [address] [place] [address], [place] [address] Jun, [facility] [address] [id number] [address] [place] [address], [place] [address] Jun, [facility] [address] [id number] [address] [place] [address], [place] [address] 31 May, 2013 [facility] [address] [id number] [address] [place] [address], [place] [address] 31 May, 2013 [facility] [address] [id number] [address] [place] [address], [place] [address] 17 May, 2013 [facility] [address] [id number] [address] [place] [address], [place] [address] 17 May, 2013 [facility] [address] [id number] [address] [place] [address], [place] [address] 14 May, 2013 [facility] [address] [id number] [address] [place] [address], [place] [address] 14 May, 2013 [facility] [address] [id number] [address] [place] [address], [place] [address] 10 May, 2013 [facility] [address] [id number] [address] [place] [address], [place] [address] 10 May, 2013 [facility] [address] [id number] [address] [place] [address] 07 May, 2013 [facility] [address] [id number] [address] [place] [address] 20 Sep, 2012 [facility] [address] [id number] [address] [place] [address], [place] [address] 19 Sep, 2012 [facility] [address] [id number] [address] [place] [address], [place] [address] 12 Apr, 2012 [facility] [address] [id number] [address] [place] [address], [place] [address] 24 Sep, 2011 [facility] [address] [id number] [address] [place] [address], [place] [address] 21 Sep, 2011 [facility] [address] [id number] [address] [place] [address], [place] [address] 21 Apr, 2011 [facility] [address] [id number] [address] [place] [address], [place] [address] 14 Apr, 2011 [facility] [address] [id number] [address] [place] [address], [place] [address] 10 Apr, 2011 [facility] [address] [id number] [address] [place] [address], [place] [address] 06 Apr, 2011 [facility] [address] [id number] [address] [place] [address], [place] [address] 04 Apr, 2011 [facility] [address] [id number] [address] [place] [address], [place] [address] 31 Mar, 2012 [facility] [address] [id number] [address] [place] [address], [place] [address] 28 Mar, 2012 [facility] [address] [id number] [address] [place] [address], [place] [address] 27 Mar, 2012 [facility] [address] [id number] [address] [place] [address], [place] [address] 10 Mar, 2012 [facility] [address] [id number] [address] [place] [address], [place] [address] 08 Mar, 2012 [facility] [address] [id number] [address] [place] [address], [place] [address] 03 Mar, 2012 [facility] [address] [id number] [address] [place] [address], [place] [address] Feb, [facility] [address] [id number] [address] [place] [address], [place] [address] Feb, [facility] [address] [id number] [address] [place] [address], [place] [address] Feb, [facility] [address] [id number] [address] [place] [address], [place] [address] Jan, [facility] [address] [id number] [address] [place] [address], [place] [address] Jan, [facility] [address] [id number] [address] [place] [address], [place] [address] Jan, [facility] [address] [id number] [address] [place] [address], [place] [address] Jan, [facility] [address] [id number] [address] [place] [address], [place] [address] Jan, [facility] [address] [id number] [address] [place] [address], [place] [address] Jan, [facility] [address] [id number] [address] [place] [address], [place] [address] Jan, [facility] [address] [id number] [address] [place] [address], [place] [address] Jan, [facility] [address] [id number] [address] [place] [address], [place] [address] December, [facility] [address] [id number] [address] [place] [address], [place] [address] December, [facility] [address] [id number] [address] [place] [address], [place] [address] December, [facility] [address] [id number] [address] [place] [address], [place] [address] December, [facility] [address] [id number] [address] [place] [address], [place] [address] December, [facility] [address] [id number] [address] [place] [address], [place] [address] December, [facility] [address] [id number] [address] [place] [address], [place] [address] 13 Nov, 2011 [facility] [address] [id number] [address] [place] [address], [place] [address] 13 Nov, 2011 [facility] [address] [id number] [address] [place] [address], [place] [address] Nov, [facility] [address] [id number] [address] [place] [address], [place] [address] Nov, [facility] [address] [id number] [address] [place] [address], [place] [address] Nov, [facility] [address] [id number] [address] [place] [address], [place] [address] Oct, [facility] [address] [id number] [address] [place] [address], [place] [address] 17 Sep, 2011 [facility] [address] [id number] [address] [place] [address], [place] [address] Aug, [facility] [address] [id number] [address] [place] [address], [place] [address] Aug, [facility] [address] [id number] [address] [place] [address], [place] [address] Aug, [facility] [address] [id number] [address] [place] [address], [place] [address] Aug, [facility] [address] [id number] [address] [place] [address], [place] [address] Aug, [facility] [address] [id number] [address] [place] [address], [place] [address] Jul, [facility] [address] [id number] [address] [place] [address], [place] [address] Jul, [facility] [address] [id number] [address] [place] [address], [place] [address] Jun, [facility] [address] [id number] [address] [place] [address], [place] [address] Jun, [facility] [address] [id number] [address] [place] [address], [place] [address] Jun, [facility] [address] [id number] [address] [place] [address], [place] [address] May, [facility] [address] [id number] [address] [place] [address], [place] [address] May, [facility] [address] [id number] [address] [place] [address], [place] [address] 16 Oct, 2010 [facility] [address] [id number] [address] [place] [address], [place] [address] Oct, [facility] [address] [id number] [address] [place] [address], [place] [address] 29 Jul, 2010 [facility] [address] [id number] [address] [place] [address], [place] [address] 08 Jul, 2010 [facility] [address] [id number] [address] [place] [address], [place] [address] Jul, [facility] [address] [id number] [address] [place] [address], [place] [address] Jul, [facility] [address] [id number] [address] [place] [address], [place] [address] Jul, [facility] [address] [id number] [address] [place] [address], [place] [address] Jun, [facility] [address] [id number] [address] [place] [address], [place] [address] Jun, [facility] [address] [id number] [address] [place] [address], [place] [address] Jun, [facility] [address] [id number] [address] [place] [address], [place] [address] May, [facility] [address] [facility] [id number] [address] [place] [address] 16 Mar, 2010 IMMUNIZATIONS No Known Immunizations [...]
--- OUTSIDE RECORDS SUMMARY | 2019-11-28 22:53 | XMS REPORT ---
Author Author Caren LYLE Organization [facility] Address [address] [place] [address] Care Team Providers Care Supervisor Pigment Making Name Role Phone LAURIE LYLE Unavailable PROBLEMS Type Condition ICD9-CM Code [id number] Code Onset Dates Condition S tatus SNOMED Code Problem COPD (chronic obstructive pulmonary disease) J44.9 Active 24676024 Problem Diabetes E11.9 Active 53956553 Problem Diabetic neuropathy E11.40 Active 636161295 Problem Arthritis M19.90 Active 0031502 ALLERGIES No Information ENCOUNTERS Encounter Location Date Diagnosis [facility] [address] [facility] [id number] [address] [place] [address] December, [facility] [address] [id number] [address] [place] [address] Aug, Arthritis M19.90 [facility] [address] [facility] [id number] [address] [place] [address] Jul, [facility] [address] [facility] [id number] [address] [place] [address] Jul, [facility] [address] [facility] [id number] [address] [place] [address] Jul, [facility] [address] [id number] [address] [place] [address] Jul, [facility] [address] [facility] [id number] [address] [place] [address] Jul, Diabetes E11.9 ; Diabetic ne uropathy E11.40 ; Arthritis M19.90 and COPD (chronic obstructive pulmonary disease) J44.9 [facility] [address] [facility] [id number] [address] [place] [address] Jul, [facility] [address] [id number] [address] [place] [address], [place] [address] 23 Jun, 2015 [facility] [address] [id number] [address] [place] [address], [place] [address] 23 Jun, 2015 [facility] [address] [id number] [address] [place] [address], [place] [address] 17 Jun, 2014 [facility] [address] [id number] [address] [place] [address], [place] [address] 10 Jun, 2014 [facility] [address] [id number] [address] [place] [address], [place] [address] 15 May, 2015 [facility] [address] [id number] [address] [place] [address], [place] [address] 13 May, 2015 [facility] [address] [id number] [address] [place] [address], [place] [address] 07 May, 2015 [facility] [address] [id number] [address] [place] [address], [place] [address] 22 Sep, 2014 [facility] [address] [id number] [address] [place] [address], [place] [address] 21 Sep, 2014 [facility] [address] [id number] [address] [place] [address], [place] [address] 21 Sep, 2014 [facility] [address] [id number] [address] [place] [address], [place] [address] 15 Sep, 2014 [facility] [address] [id number] [address] [place] [address], [place] [address] 11 Sep, 2014 [facility] [address] [id number] [address] [place] [address], [place] [address] 09 Sep, 2014 [facility] [address] [id number] [address] [place] [address], [place] [address] 08 Sep, 2014 [facility] [address] [id number] [address] [place] [address], [place] [address] 03 Sep, 2014 [facility] [address] [id number] [address] [place] [address] [address] Apr, [facility] [address] [facility] [id number] [address] [place] [address] Mar, [facility] [address] [facility] [id number] [address] [place] [address] Mar, [facility] [address] [facility] [id number] [address] [place] [address] Mar, [facility] [address] [facility] [id number] [address] [place] [address] Mar, [facility] [address] [facility] [id number] [address] [place] [address] Mar, [facility] [address] [facility] [id number] [address] [place] [address] Mar, Diabetes mellitus 250.00 ; C OPD (chronic obstructive pulmonary disease) 496 ; Anxiety 300.00 and Arthritis 716.90 [facility] [address] [facility] [id number] [address] [place] [address] Feb, [facility] [address] [facility] [id number] [address] [place] [address] Feb, [facility] [address] [facility] [id number] [address] [place] [address] Feb, [facility] [address] [facility] [id number] [address] [place] [address] Feb, [facility] [address] [facility] [id number] [address] [place] [address] Jan, Seborrheic keratosis 702.19 and Nevus 216.9 [facility] [address] [facility] [id number] [address] [place] [address] Jan, [facility] [address] [facility] [id number] [address] [place] [address] Jan, Routine gynecological examin ation V72.31 ; Breast cancer screening V76.10 ; Hot flashes 627.2 ; Atypical nevi 216.9 and Constipation 564.00 [facility] [address] [id number] [address] [place] [address], [place] [address] Jan, [facility] [address] [id number] [address] [place] [address], [place] [address] December, [facility] [address] [id number] [address] [place] [address], [place] [address] December, [facility] [address] [id number] [address] [place] [address], [place] [address] Nov, [facility] [address] [id number] [address] [place] [address], [place] [address] Nov, [facility] [address] [id number] [address] [place] [address], [place] [address] Oct, [facility] [address] [id number] [address] [place] [address], [place] [address] 23 Oct, 2014 [facility] [address] [id number] [address] [place] [address], [place] [address] 18 Oct, 2014 [facility] [address] [id number] [address] [place] [address], [place] [address] 18 Oct, 2014 [facility] [address] [id number] [address] [place] [address], [place] [address] 17 Oct, 2014 [facility] [address] [id number] [address] [place] [address], [place] [address] 17 Oct, 2014 [facility] [address] [id number] [address] [place] [address] 16 Oct, 2014 [facility] [address] [id number] [address] [place] [address], [place] [address] 16 Oct, 2014 [facility] [address] [id number] [address] [place] [address], [place] [address] 11 Oct, 2014 [facility] [address] [id number] [address] [place] [address], [place] [address] 11 Oct, 2014 [facility] [address] [id number] [address] [place] [address], [place] [address] Sep, 2014 [facility] [address] [id number] [address] [place] [address], [place] [address] Sep, 2014 [facility] [address] [id number] [address] [place] [address], [place] [address] 19 Sep, 2014 [facility] [address] [id number] [address] [place] [address], [place] [address] 18 Sep, 2014 [facility] [address] [id number] [address] [place] [address], [place] [address] Sep, 2014 [facility] [address] [id number] [address] [place] [address], [place] [address] Sep, 2014 [facility] [address] [id number] [address] [place] [address], [place] [address] Sep, 2014 [facility] [address] [id number] [address] [place] [address], [place] [address] Aug, [facility] [address] [id number] [address] [place] [address], [place] [address] Aug, [facility] [address] [id number] [address] [place] [address], [place] [address] Aug, [facility] [address] [id number] [address] [place] [address], [place] [address] Aug, [facility] [address] [id number] [address] [place] [address], [place] [address] Aug, [facility] [address] [id number] [address] [place] [address], [place] [address] Aug, [facility] [address] [id number] [address] [place] [address], [place] [address] Jul, [facility] [address] [id number] [address] [place] [address], [place] [address] Jul, [facility] [address] [id number] [address] [place] [address], [place] [address] Jul, [facility] [address] [id number] [address] [place] [address], [place] [address] Jul, [facility] [address] [id number] [address] [place] [address], [place] [address] Jul, [facility] [address] [id number] [address] [place] [address], [place] [address] Jun, [facility] [address] [id number] [address] [place] [address], [place] [address] Jun, [facility] [address] [id number] [address] [place] [address], [place] [address] Jun, [facility] [address] [id number] [address] [place] [address], [place] [address] Jun, [facility] [address] [id number] [address] [place] [address], [place] [address] Jun, [facility] [address] [id number] [address] [place] [address], [place] [address] Jun, [facility] [address] [id number] [address] [place] [address], [place] [address] May, [facility] [address] [id number] [address] [place] [address], [place] [address] May, [facility] [address] [id number] [address] [place] [address], [place] [address] May, [facility] [address] [id number] [address] [place] [address] May, [facility] [address] [id number] [address] [place] [address], [place] [address] May, [facility] [address] [id number] [address] [place] [address], [place] [address] May, [facility] [address] [id number] [address] [place] [address], [place] [address] May, [facility] [address] [id number] [address] [place] [address], [place] [address] May, [facility] [address] [id number] [address] [place] [address], [place] [address] May, [facility] [address] [id number] [address] [place] [address], [place] [address] Apr, [facility] [address] [id number] [address] [place] [address], [place] [address] Apr, [facility] [address] [id number] [address] [place] [address], [place] [address] Apr, [facility] [address] [id number] [address] [place] [address], [place] [address] Apr, [facility] [address] [id number] [address] [place] [address], [place] [address] Mar, [facility] [address] [id number] [address] [place] [address], [place] [address] Mar, [facility] [address] [id number] [address] [place] [address], [place] [address] Mar, [facility] [address] [id number] [address] [place] [address], [place] [address] Mar, [facility] [address] [id number] [address] [place] [address], [place] [address] Mar, [facility] [address] [id number] [address] [place] [address], [place] [address] Mar, [facility] [address] [id number] [address] [place] [address], [place] [address] Feb, [facility] [address] [id number] [address] [place] [address], [place] [address] Feb, [facility] [address] [id number] [address] [place] [address], [place] [address] Feb, [facility] [address] [id number] [address] [place] [address], [place] [address] Feb, [facility] [address] [id number] [facility] [address] Feb, 2013 [facility] [address] [id number] [facility] [place] [address] Feb, [facility] [address] [id number] [address] [place] [address], [place] [address] Feb, 2013 [facility] [address] [id number] [address] [place] [address], [place] [address] Feb, 2013 [facility] [address] [id number] [address] [place] [address], [place] [address] Feb, 2013 [facility] [address] [id number] [address] [place] [address], [place] [address] Feb, [facility] [address] [id number] [address] [place] [address], [place] [address] Feb, [facility] [address] [id number] [address] [place] [address], [place] [address] Feb, [facility] [address] [id number] [address] [place] [address], [place] [address] Jan, [facility] [address] [id number] [address] [place] [address], [place] [address] Jan, [facility] [address] [id number] [address] [place] [address], [place] [address] Jan, [facility] [address] [id number] [address] [place] [address], [place] [address] Jan, [facility] [address] [id number] [address] [place] [address], [place] [address] Jan, [facility] [address] [id number] [address] [place] [address], [place] [address] Jan, [facility] [address] [id number] [address] [place] [address], [place] [address] Jan, [facility] [address] [id number] [address] [place] [address], [place] [address] Jan, [facility] [address] [id number] [address] [place] [address], [place] [address] Jan, [facility] [address] [id number] [address] [place] [address], [place] [address] Jan, [facility] [address] [id number] [address] [place] [address], [place] [address] Jan, [facility] [address] [id number] [address] [place] [address], [place] [address] Jan, [facility] [address] [id number] [address] [place] [address], [place] [address] Jan, [facility] [address] [id number] [address] [place] [address], [place] [address] Jan, [facility] [address] [id number] [address] [place] [address], [place] [address] Jan, [facility] [address] [id number] [address] [place] [address], [place] [address] Jan, [facility] [address] [id number] [address] [place] [address], [place] [address] Jan, [facility] [address] [id number] [address] [place] [address], [place] [address] December, [facility] [address] [id number] [address] [place] [address], [place] [address] December, [facility] [address] [id number] [address] [place] [address], [place] [address] December, [facility] [address] [id number] [address] [place] [address], [place] [address] December, [facility] [address] [id number] [address] [place] [address], [place] [address] December, [facility] [address] [id number] [address] [place] [address], [place] [address] December, [facility] [address] [id number] [address] [place] [address], [place] [address] Nov, [facility] [address] [id number] [address] [place] [address], [place] [address] Nov, [facility] [address] [id number] [address] [place] [address], [place] [address] Nov, [facility] [address] [id number] [address] [place] [address], [place] [address] Nov, [facility] [address] [id number] [address] [place] [address], [place] [address] Nov, [facility] [address] [id number] [address] [place] [address], [place] [address] Nov, [facility] [address] [id number] [address] [place] [address], [place] [address] Nov, [facility] [address] [id number] [address] [place] [address], [place] [address] Nov, [facility] [address] [id number] [address] [place] [address], [place] [address] Nov, [facility] [address] [id number] [address] [place] [address], [place] [address] Nov, [facility] [address] [id number] [address] [place] [address], [place] [address] Nov, [facility] [address] [id number] [address] [place] [address], [place] [address] Nov, [facility] [address] [id number] [address] [place] [address], [place] [address] Nov, [facility] [address] [id number] [address] [place] [address], [place] [address] Nov, [facility] [address] [id number] [address] [place] [address], [place] [address] Nov, [facility] [address] [id number] [address] [place] [address], [place] [address] Nov, [facility] [address] [id number] [address] [place] [address], [place] [address] Oct, [facility] [address] [id number] [address] [place] [address], [place] [address] Oct, [facility] [address] [id number] [address] [place] [address], [place] [address] Oct, [facility] [address] [id number] [address] [place] [address], [place] [address] Oct, [facility] [address] [id number] [address] [place] [address], [place] [address] Oct, [facility] [address] [id number] [address] [place] [address], [place] [address] Oct, [facility] [address] [id number] [address] [place] [address], [place] [address] Oct, [facility] [address] [id number] [address] [place] [address], [place] [address] Oct, [facility] [address] [id number] [address] [place] [address], [place] [address] Sep, [facility] [address] [id number] [address] [place] [address], [place] [address] Sep, [facility] [address] [id number] [address] [place] [address], [place] [address] Sep, [facility] [address] [id number] [address] [place] [address], [place] [address] Sep, [facility] [address] [id number] [address] [place] [address], [place] [address] Sep, [facility] [address] [id number] [address] [place] [address], [place] [address] Sep, [facility] [address] [id number] [address] [place] [address], [place] [address] Aug, [facility] [address] [id number] [address] [place] [address], [place] [address] Aug, [facility] [address] [id number] [address] [place] [address], [place] [address] Aug, [facility] [address] [id number] [address] [place] [address], [place] [address] Aug, [facility] [address] [id number] [address] [place] [address], [place] [address] Aug, [facility] [address] [id number] [address] [place] [address], [place] [address] Aug, [facility] [address] [id number] [address] [place] [address], [place] [address] Aug, [facility] [address] [id number] [address] [place] [address], [place] [address] Aug, [facility] [address] [id number] [address] [place] [address], [place] [address] Jul, [facility] [address] [id number] [address] [place] [address], [place] [address] Jul, [facility] [address] [id number] [address] [place] [address], [place] [address] Jul, [facility] [address] [id number] [address] [place] [address], [place] [address] Jul, [facility] [address] [id number] [address] [place] [address], [place] [address] Jul, [facility] [address] [id number] [address] [place] [address], [place] [address] Jul, [facility] [address] [id number] [address] [place] [address], [place] [address] Jul, [facility] [address] [id number] [address] [place] [address], [place] [address] Jul, [facility] [address] [id number] [address] [place] [address], [place] [address] Jul, [facility] [address] [id number] [address] [place] [address], [place] [address] 14 Jun, 2013 [facility] [address] [id number] [address] [place] [address], [place] [address] 14 Jun, 2013 [facility] [address] [id number] [address] [place] [address], [place] [address] Jun, [facility] [address] [id number] [address] [place] [address], [place] [address] Jun, [facility] [address] [id number] [address] [place] [address], [place] [address] Jun, [facility] [address] [id number] [address] [place] [address], [place] [address] Jun, [facility] [address] [id number] [address] [place] [address], [place] [address] 31 May, 2013 [facility] [address] [id number] [address] [place] [address], [place] [address] 31 May, 2013 [facility] [address] [id number] [address] [place] [address], [place] [address] 17 May, 2013 [facility] [address] [id number] [address] [place] [address], [place] [address] 17 May, 2013 [facility] [address] [id number] [address] [place] [address], [place] [address] 14 May, 2013 [facility] [address] [id number] [address] [place] [address], [place] [address] 14 May, 2013 [facility] [address] [id number] [address] [place] [address], [place] [address] 10 May, 2013 [facility] [address] [id number] [address] [place] [address], [place] [address] 10 May, 2013 [facility] [address] [id number] [address] [place] [id number] 07 May, 2013 [facility] [address] [id number] [address] [place] [address] 20 Sep, 2012 [facility] [address] [id number] [address] [place] [address], [place] [address] 19 Sep, 2012 [facility] [address] [id number] [address] [place] [address], [place] [address] 12 Apr, 2012 [facility] [address] [id number] [address] [place] [address], [place] [address] 24 Sep, 2011 [facility] [address] [id number] [address] [place] [address], [place] [address] 21 Sep, 2011 [facility] [address] [id number] [address] [place] [address], [place] [address] 21 Apr, 2011 [facility] [address] [id number] [address] [place] [address], [place] [address] 14 Apr, 2011 [facility] [address] [id number] [address] [place] [address], [place] [address] 10 Apr, 2011 [facility] [address] [id number] [address] [place] [address], [place] [address] 06 Apr, 2011 [facility] [address] [id number] [address] [place], [place] [address], [place] [address] 04 Apr, 2011 [facility] [address] [id number] [address] [place] [address], [place] [address] 31 Mar, 2012 [facility] [address] [id number] [address] [place] [address], [place] [address] 28 Mar, 2012 [facility] [address] [id number] [address] [place] [address], [place] [address] 27 Mar, 2012 [facility] [address] [id number] [address] [place] [address], [place] [address] 10 Mar, 2012 [facility] [address] [id number] [address] [place] [address], [place] [address] 08 Mar, 2012 [facility] [address] [id number] [address] [place] [address], [place] [address] 03 Mar, 2012 [facility] [address] [id number] [address] [place] [address], [place] [address] Feb, [facility] [address] [id number] [address] [place] [address], [place] [address] Feb, [facility] [address] [id number] [address] [place] [address], [place] [address] Feb, [facility] [address] [id number] [address] [place] [address], [place] [address] Jan, [facility] [address] [id number] [address] [place] [address], [place] [address] Jan, [facility] [address] [id number] [address] [place] [address], [place] [address] Jan, [facility] [address] [id number] [address] [place] [address], [place] [address] Jan, [facility] [address] [id number] [address] [place] [address], [place] [address] Jan, [facility] [address] [id number] [address] [place] [address], [place] [address] Jan, [facility] [address] [id number] [address] [place] [address], [place] [address] Jan, [facility] [address] [id number] [address] [place] [address], [place] [address] Jan, [facility] [address] [id number] [address] [place] [address], [place] [address] December, [facility] [address] [id number] [address] [place] [address], [place] [address] December, [facility] [address] [id number] [address] [place] [address], [place] [address] December, [facility] [address] [id number] [address] [place] [address], [place] [address] December, [facility] [address] [id number] [address] [place] [address], [place] [address] December, [facility] [address] [id number] [address] [place] [address], [place] [address] December, [facility] [address] [id number] [address] [place] [address], [place] [address] 13 Nov, 2011 [facility] [address] [id number] [address] [place] [address], [place] [address] 13 Nov, 2011 [facility] [address] [id number] [address] [place] [address], [place] [address] Nov, [facility] [address] [id number] [address] [place] [address], [place] [address] Nov, [facility] [address] [id number] [address] [place] [address], [place] [address] Nov, [facility] [address] [id number] [address] [place] [address], [place] [address] Oct, [facility] [address] [id number] [address] [place] [address], [place] [address] 17 Sep, 2011 [facility] [address] [id number] [address] [place] [address], [place] [address] Aug, [facility] [address] [id number] [address] [place] [address], [place] [address] Aug, [facility] [address] [id number] [address] [place] [address], [place] [address] Aug, [facility] [address] [id number] [address] [place] [address], [place] [address] Aug, [facility] [address] [id number] [address] [place] [address], [place] [address] Aug, [facility] [address] [id number] [address] [place] [address], [place] [address] Jul, [facility] [address] [id number] [address] [place] [address], [place] [address] Jul, [facility] [address] [id number] [address] [place] [address], [place] [address] Jun, [facility] [address] [id number] [address] [place] [address], [place] [address] Jun, [facility] [address] [id number] [address] [place] [address], [place] [address] Jun, [facility] [address] [id number] [address] [place] [address], [place] [address] May, [facility] [address] [id number] [address] [place] [address], [place] [address] May, [facility] [address] [id number] [address] [place] [address], [place] [address] 16 Oct, 2010 [facility] [address] [id number] [address] [place] [address], [place] [address] Oct, [facility] [address] [id number] [address] [place] [address], [place] [address] 29 Jul, 2010 [facility] [address] [id number] [address] [place] [address], [place] [address] 08 Jul, 2010 [facility] [address] [id number] [address] [place] [address], [place] [address] Jul, [facility] [address] [id number] [address] [place] [address], [place] [address] Jul, [facility] [address] [id number] [address] [place] [address], [place] [address] Jul, [facility] [address] [id number] [address] [place] [address], [place] [address] Jun, [facility] [address] [id number] [address] [place] [address], [place] [address] Jun, [facility] [address] [id number] [address] [place] [address], [place] [address] Jun, [facility] [address] [id number] [address] [place] [address], [place] [address] May, [facility] [address] [facility] [id number] [address] [place] [address] 16 Mar, 2010 IMMUNIZATIONS No Known Immunizations [...]
--- OUTSIDE RECORDS SUMMARY | 2019-11-28 22:53 | XMS REPORT ---
Author Author Caren LYLE Organization [facility] Address [address] [place] [address] Care Team Providers Care [employer] Process Worker Name Role Phone LAURIE LYLE Unavailable PROBLEMS Type Condition ICD9-CM Code CRJ01-KM Code Onset Dates Condition S tatus SNOMED Code Problem COPD (chronic obstructive pulmonary disease) J44.9 Active 63986948 Problem Diabetes E11.9 Active 03834983 Problem Diabetic neuropathy E11.40 Active 602229260 Problem Arthritis M19.90 Active 0804431 ALLERGIES No Information ENCOUNTERS Encounter Location Date Diagnosis [facility] [address] [facility] [id number] [address] [place] [id number] December, [facility] [address] [id number] [address] [place] [phone] Aug, Arthritis M19.90 [facility] [address] [facility] [id number] [address] [place] [phone] Jul, [facility] [address] [facility] [id number] [address] [place] [phone] Jul, [facility] [address] [facility] [id number] [address] [place] [phone] Jul, [facility] [address] [id number] [address] [place] [id number] Jul, [facility] [address] [facility] [id number] [address] [place] [address] Jul, Diabetes E11.9 ; Diabetic ne uropathy E11.40 ; Arthritis M19.90 and COPD (chronic obstructive pulmonary disease) J44.9 [facility] [address] [facility] [id number] [address] [place] [id number] Jul, [facility] [address] [id number] [address] [place] [address], [place] [address] 23 Jun, 2015 [facility] [address] [id number] [address] [place] [address], [place] [address] 23 Jun, 2015 [facility] [address] [id number] [address] [place] [address], [place] [address] 17 Jun, 2014 [facility] [address] [id number] [address] [place] [address], [place] [address] 10 Jun, 2014 [facility] [address] [id number] [address] [place] [address], [place] [address] 15 May, 2015 [facility] [address] [id number] [address] [place] [address], [place] [address] 13 May, 2015 [facility] [address] [id number] [address] [place] [address], [place] [address] 07 May, 2015 [facility] [address] [id number] [address] [place] [address], [place] [address] 22 Sep, 2014 [facility] [address] [id number] [address] [place] [address], [place] [address] 21 Sep, 2014 [facility] [address] [id number] [address] [place] [address], [place] [address] 21 Sep, 2014 [facility] [address] [id number] [address] [place] [address], [place] [address] 15 Sep, 2014 [facility] [address] [id number] [address] [place] [address], [place] [address] 11 Sep, 2014 [facility] [address] [id number] [address] [place] [address], [place] [address] 09 Sep, 2014 [facility] [address] [id number] [address] [place] [address], [place] [address] 08 Sep, 2014 [facility] [address] [id number] [address] [place] [address], [place] [address] 03 Sep, 2014 [facility] [address] [id number] [address] [place] [address] [address] Apr, [facility] [address] [facility] [id number] [address] [place] [id number] Mar, [facility] [address] [facility] [id number] [address] [place] [id number] Mar, [facility] [address] [facility] [id number] [address] [place] [phone] Mar, [facility] [address] [facility] [id number] [address] [place] [address] Mar, [facility] [address] [facility] [id number] [address] [place] [address] Mar, [facility] [address] [facility] [id number] [address] [place] [address] Mar, Diabetes mellitus 250.00 ; C OPD (chronic obstructive pulmonary disease) 496 ; Anxiety 300.00 and Arthritis 716.90 [facility] [address] [facility] [id number] [address] [place] [id number] Feb, [facility] [address] [facility] [id number] [address] [place] [id number] Feb, [facility] [address] [facility] [id number] [address] [place] [phone] Feb, [facility] [address] [facility] [id number] [address] [place] [address] Feb, [facility] [address] [facility] [id number] [address] [place] [id number] Jan, Seborrheic keratosis 702.19 and Nevus 216.9 [facility] [address] [facility] [id number] [address] [place] [phone] Jan, [facility] [address] [facility] [id number] [address] [place] [phone] Jan, Routine gynecological examin ation V72.31 ; Breast cancer screening V76.10 ; Hot flashes 627.2 ; Atypical nevi 216.9 and Constipation 564.00 [facility] [address] [id number] [address] [place] [address], [place] [address] Jan, [facility] [address] [id number] [address] [place] [address], [place] [address] December, [facility] [address] [id number] [address] [place] [address], [place] [address] December, [facility] [address] [id number] [address] [place] [address], [place] [address] Nov, [facility] [address] [id number] [address] [place] [address], [place] [address] Nov, [facility] [address] [id number] [address] [place] [address], [place] [address] Oct, [facility] [address] [id number] [address] [place] [address], [place] [address] 23 Oct, 2014 [facility] [address] [id number] [address] [place] [address], [place] [address] 18 Oct, 2014 [facility] [address] [id number] [address] [place] [address], [place] [address] 18 Oct, 2014 [facility] [address] [id number] [address] [place] [address], [place] [address] 17 Oct, 2014 [facility] [address] [id number] [address] [place] [address], [place] [address] 17 Oct, 2014 [facility] [address] [id number] [address] [place] [id number] 16 Oct, 2014 [facility] [address] [id number] [address] [place] [address], [place] [address] 16 Oct, 2014 [facility] [address] [id number] [address] [place] [address], [place] [address] 11 Oct, 2014 [facility] [address] [id number] [address] [place] [address], [place] [address] 11 Oct, 2014 [facility] [address] [id number] [address] [place] [address], [place] [address] Sep, 2014 [facility] [address] [id number] [address] [place] [address], [place] [address] Sep, 2014 [facility] [address] [id number] [address] [place] [address], [place] [address] 19 Sep, 2014 [facility] [address] [id number] [address] [place] [address], [place] [address] 18 Sep, 2014 [facility] [address] [id number] [address] [place] [address], [place] [address] Sep, 2014 [facility] [address] [id number] [address] [place] [address], [place] [address] Sep, 2014 [facility] [address] [id number] [address] [place] [address], [place] [address] Sep, 2014 [facility] [address] [id number] [address] [place] [address], [place] [address] Aug, [facility] [address] [id number] [address] [place] [address], [place] [address] Aug, [facility] [address] [id number] [address] [place] [address], [place] [address] Aug, [facility] [address] [id number] [address] [place] [address], [place] [address] Aug, [facility] [address] [id number] [address] [place] [address], [place] [address] Aug, [facility] [address] [id number] [address] [place] [address], [place] [address] Aug, [facility] [address] [id number] [address] [place] [address], [place] [address] Jul, [facility] [address] [id number] [address] [place] [address], [place] [address] Jul, [facility] [address] [id number] [address] [place] [address], [place] [address] Jul, [facility] [address] [id number] [address] [place] [address], [place] [address] Jul, [facility] [address] [id number] [address] [place] [address], [place] [address] Jul, [facility] [address] [id number] [address] [place] [address], [place] [address] Jun, [facility] [address] [id number] [address] [place] [address], [place] [address] Jun, [facility] [address] [id number] [address] [place] [address], [place] [address] Jun, [facility] [address] [id number] [address] [place] [address], [place] [address] Jun, [facility] [address] [id number] [address] [place] [address], [place] [address] Jun, [facility] [address] [id number] [address] [place] [address], [place] [address] Jun, [facility] [address] [id number] [address] [place] [address], [place] [address] May, [facility] [address] [id number] [address] [place] [address], [place] [address] May, [facility] [address] [id number] [address] [place] [address], [place] [address] May, [facility] [address] [id number] [address] [place] [phone] May, [facility] [address] [id number] [address] [place] [address], [place] [address] May, [facility] [address] [id number] [address] [place] [address], [place] [address] May, [facility] [address] [id number] [address] [place] [address], [place] [address] May, [facility] [address] [id number] [address] [place] [address], [place] [address] May, [facility] [address] [id number] [address] [place] [address], [place] [address] May, [facility] [address] [id number] [address] [place] [address], [place] [address] Apr, [facility] [address] [id number] [address] [place] [address], [place] [address] Apr, [facility] [address] [id number] [address] [place] [address], [place] [address] Apr, [facility] [address] [id number] [address] [place] [address], [place] [address] Apr, [facility] [address] [id number] [address] [place] [address], [place] [address] Mar, [facility] [address] [id number] [address] [place] [address], [place] [address] Mar, [facility] [address] [id number] [address] [place] [address], [place] [address] Mar, [facility] [address] [id number] [address] [place] [address], [place] [address] Mar, [facility] [address] [id number] [address] [place] [address], [place] [address] Mar, [facility] [address] [id number] [address] [place] [address], [place] [address] Mar, [facility] [address] [id number] [address] [place] [address], [place] [address] Feb, [facility] [address] [id number] [address] [place] [address], [place] [address] Feb, [facility] [address] [id number] [address] [place] [address], [place] [address] Feb, [facility] [address] [id number] [address] [place] [address], [place] [address] Feb, [facility] [address] [id number] [facility] [address] Feb, 2013 [facility] [address] [id number] [facility] [address] Feb, [facility] [address] [id number] [address] [place] [address], [place] [address] Feb, 2013 [facility] [address] [id number] [address] [place] [address], [place] [address] Feb, 2013 [facility] [address] [id number] [address] [place] [address], [place] [address] Feb, 2013 [facility] [address] [id number] [address] [place] [address], [place] [address] Feb, [facility] [address] [id number] [address] [place] [address], [place] [address] Feb, [facility] [address] [id number] [address] [place] [address], [place] [address] Feb, [facility] [address] [id number] [address] [place] [address], [place] [address] Jan, [facility] [address] [id number] [address] [place] [address], [place] [address] Jan, [facility] [address] [id number] [address] [place] [address], [place] [address] Jan, [facility] [address] [id number] [address] [place] [address], [place] [address] Jan, [facility] [address] [id number] [address] [place] [address], [place] [address] Jan, [facility] [address] [id number] [address] [place] [address], [place] [address] Jan, [facility] [address] [id number] [address] [place] [address], [place] [address] Jan, [facility] [address] [id number] [address] [place] [address], [place] [address] Jan, [facility] [address] [id number] [address] [place] [address], [place] [address] Jan, [facility] [address] [id number] [address] [place] [address], [place] [address] Jan, [facility] [address] [id number] [address] [place] [address], [place] [address] Jan, [facility] [address] [id number] [address] [place] [address], [place] [address] Jan, [facility] [address] [id number] [address] [place] [address], [place] [address] Jan, [facility] [address] [id number] [address] [place] [address], [place] [address] Jan, [facility] [address] [id number] [address] [place] [address], [place] [address] Jan, [facility] [address] [id number] [address] [place] [address], [place] [address] Jan, [facility] [address] [id number] [address] [place] [address], [place] [address] Jan, [facility] [address] [id number] [address] [place] [address], [place] [address] December, [facility] [address] [id number] [address] [place] [address], [place] [address] December, [facility] [address] [id number] [address] [place] [address], [place] [address] December, [facility] [address] [id number] [address] [place] [address], [place] [address] December, [facility] [address] [id number] [address] [place] [address], [place] [address] December, [facility] [address] [id number] [address] [place] [address], [place] [address] December, [facility] [address] [id number] [address] [place] [address], [place] [address] Nov, [facility] [address] [id number] [address] [place] [address], [place] [address] Nov, [facility] [address] [id number] [address] [place] [address], [place] [address] Nov, [facility] [address] [id number] [address] [place] [address], [place] [address] Nov, [facility] [address] [id number] [address] [place] [address], [place] [address] Nov, [facility] [address] [id number] [address] [place] [address], [place] [address] Nov, [facility] [address] [id number] [address] [place] [address], [place] [address] Nov, [facility] [address] [id number] [address] [place] [address], [place] [address] Nov, [facility] [address] [id number] [address] [place] [address], [place] [address] Nov, [facility] [address] [id number] [address] [place] [address], [place] [address] Nov, [facility] [address] [id number] [address] [place] [address], [place] [address] Nov, [facility] [address] [id number] [address] [place] [address], [place] [address] Nov, [facility] [address] [id number] [address] [place] [address], [place] [address] Nov, [facility] [address] [id number] [address] [place] [address], [place] [address] Nov, [facility] [address] [id number] [address] [place] [address], [place] [address] Nov, [facility] [address] [id number] [address] [place] [address], [place] [address] Nov, [facility] [address] [id number] [address] [place] [address], [place] [address] Oct, [facility] [address] [id number] [address] [place] [address], [place] [address] Oct, [facility] [address] [id number] [address] [place] [address], [place] [address] Oct, [facility] [address] [id number] [address] [place] [address], [place] [address] Oct, [facility] [address] [id number] [address] [place] [address], [place] [address] Oct, [facility] [address] [id number] [address] [place] [address], [place] [address] Oct, [facility] [address] [id number] [address] [place] [address], [place] [address] Oct, [facility] [address] [id number] [address] [place] [address], [place] [address] Oct, [facility] [address] [id number] [address] [place] [address], [place] [address] Sep, [facility] [address] [id number] [address] [place] [address], [place] [address] Sep, [facility] [address] [id number] [address] [place] [address], [place] [address] Sep, [facility] [address] [id number] [address] [place] [address], [place] [address] Sep, [facility] [address] [id number] [address] [place] [address], [place] [address] Sep, [facility] [address] [id number] [address] [place] [address], [place] [address] Sep, [facility] [address] [id number] [address] [place] [address], [place] [address] Aug, [facility] [address] [id number] [address] [place] [address], [place] [address] Aug, [facility] [address] [id number] [address] [place] [address], [place] [address] Aug, [facility] [address] [id number] [address] [place] [address], [place] [address] Aug, [facility] [address] [id number] [address] [place] [address], [place] [address] Aug, [facility] [address] [id number] [address] [place] [address], [place] [address] Aug, [facility] [address] [id number] [address] [place] [address], [place] [address] Aug, [facility] [address] [id number] [address] [place] [address], [place] [address] Aug, [facility] [address] [id number] [address] [place] [address], [place] [address] Jul, [facility] [address] [id number] [address] [place] [address], [place] [address] Jul, [facility] [address] [id number] [address] [place] [address], [place] [address] Jul, [facility] [address] [id number] [address] [place] [address], [place] [address] Jul, [facility] [address] [id number] [address] [place] [address], [place] [address] Jul, [facility] [address] [id number] [address] [place] [address], [place] [address] Jul, [facility] [address] [id number] [address] [place] [address], [place] [address] Jul, [facility] [address] [id number] [address] [place] [address], [place] [address] Jul, [facility] [address] [id number] [address] [place] [address], [place] [address] Jul, [facility] [address] [id number] [address] [place] [address], [place] [address] 14 Jun, 2013 [facility] [address] [id number] [address] [place] [address], [place] [address] 14 Jun, 2013 [facility] [address] [id number] [address] [place] [address], [place] [address] Jun, [facility] [address] [id number] [address] [place] [address], [place] [address] Jun, [facility] [address] [id number] [address] [place] [address], [place] [address] Jun, [facility] [address] [id number] [address] [place] [address], [place] [address] Jun, [facility] [address] [id number] [address] [place] [address], [place] [address] 31 May, 2013 [facility] [address] [id number] [address] [place] [address], [place] [address] 31 May, 2013 [facility] [address] [id number] [address] [place] [address], [place] [address] 17 May, 2013 [facility] [address] [id number] [address] [place] [address], [place] [address] 17 May, 2013 [facility] [address] [id number] [address] [place] [address], [place] [address] 14 May, 2013 [facility] [address] [id number] [address] [place] [address], [place] [address] 14 May, 2013 [facility] [address] [id number] [address] [place] [address], [place] [address] 10 May, 2013 [facility] [address] [id number] [address] [place] [address], [place] [address] 10 May, 2013 [facility] [address] [id number] [address] [place] [id number] 07 May, 2013 [facility] [address] [id number] [address] [place] [id number] 20 Sep, 2012 [facility] [address] [id number] [address] [place] [address], [place] [address] 19 Sep, 2012 [facility] [address] [id number] [address] [place] [address], [place] [address] 12 Apr, 2012 [facility] [address] [id number] [address] [place] [address], [place] [address] 24 Sep, 2011 [facility] [address] [id number] [address] [place] [address], [place] [address] 21 Sep, 2011 [facility] [address] [id number] [address] [place] [address], [place] [id number] 21 Apr, 2011 [facility] [address] [id number] [address] [place] [address], [place] [address] 14 Apr, 2011 [facility] [address] [id number] [address] [place] [address], [place] [address] 10 Apr, 2011 [facility] [address] [id number] [address] [place] [address], [place] [address] 06 Apr, 2011 [facility] [address] [id number] [address] [place] [address], [place] [address] 04 Apr, 2011 [facility] [address] [id number] [address] [place] [address], [place] [address] 31 Mar, 2012 [facility] [address] [id number] [address] [place] [address], [place] [address] 28 Mar, 2012 [facility] [address] [id number] [address] [place] [address], [place] [address] 27 Mar, 2012 [facility] [address] [id number] [address] [place] [address], [place] [address] 10 Mar, 2012 [facility] [address] [id number] [address] [place] [address], [place] [address] 08 Mar, 2012 [facility] [address] [id number] [address] [place] [address], [place] [address] 03 Mar, 2012 [facility] [address] [id number] [address] [place] [address], [place] [address] Feb, [facility] [address] [id number] [address] [place] [address], [place] [address] Feb, [facility] [address] [id number] [address] [place] [address], [place] [address] Feb, [facility] [address] [id number] [address] [place] [address], [place] [address] Jan, [facility] [address] [id number] [address] [place] [address], [place] [address] Jan, [facility] [address] [id number] [address] [place] [address], [place] [address] Jan, [facility] [address] [id number] [address] [place] [address], [place] [address] Jan, [facility] [address] [id number] [address] [place] [address], [place] [address] Jan, [facility] [address] [id number] [address] [place] [address], [place] [address] Jan, [facility] [address] [id number] [address] [place] [address], [place] [address] Jan, [facility] [address] [id number] [address] [place] [address], [place] [address] Jan, [facility] [address] [id number] [address] [place] [address], [place] [address] December, [facility] [address] [id number] [address] [place] [address], [place] [address] December, [facility] [address] [id number] [address] [place] [address], [place] [address] December, [facility] [address] [id number] [address] [place] [address], [place] [address] December, [facility] [address] [id number] [address] [place] [address], [place] [address] December, [facility] [address] [id number] [address] [place] [address], [place] [address] December, [facility] [address] [id number] [address] [place] [address], [place] [address] 13 Nov, 2011 [facility] [address] [id number] [address] [place] [address], [place] [address] 13 Nov, 2011 [facility] [address] [id number] [address] [place] [address], [place] [address] Nov, [facility] [address] [id number] [address] [place] [address], [place] [address] Nov, [facility] [address] [id number] [address] [place] [address], [place] [address] Nov, [facility] [address] [id number] [address] [place] [address], [place] [address] Oct, [facility] [address] [id number] [address] [place] [address], [place] [address] 17 Sep, 2011 [facility] [address] [id number] [address] [place] [address], [place] [address] Aug, [facility] [address] [id number] [address] [place] [address], [place] [address] Aug, [facility] [address] [id number] [address] [place] [address], [place] [address] Aug, [facility] [address] [id number] [address] [place] [address], [place] [address] Aug, [facility] [address] [id number] [address] [place] [address], [place] [address] Aug, [facility] [address] [id number] [address] [place] [address], [place] [address] Jul, [facility] [address] [id number] [address] [place] [address], [place] [address] Jul, [facility] [address] [id number] [address] [place] [address], [place] [address] Jun, [facility] [address] [id number] [address] [place] [address], [place] [address] Jun, [facility] [address] [id number] [address] [place] [address], [place] [address] Jun, [facility] [address] [id number] [address] [place] [address], [place] [address] May, [facility] [address] [id number] [address] [place] [address], [place] [address] May, [facility] [address] [id number] [address] [place] [address], [place] [address] 16 Oct, 2010 [facility] [address] [id number] [address] [place] [address], [place] [address] Oct, [facility] [address] [id number] [address] [place] [address], [place] [address] 29 Jul, 2010 [facility] [address] [id number] [address] [place] [address], [place] [address] 08 Jul, 2010 [facility] [address] [id number] [address] [place] [address], [place] [address] Jul, [facility] [address] [id number] [address] [place] [address], [place] [address] Jul, [facility] [address] [id number] [address] [place] [address], [place] [address] Jul, [facility] [address] [id number] [address] [place] [address], [place] [address] Jun, [facility] [address] [id number] [address] [place] [address], [place] [address] Jun, [facility] [address] [id number] [address] [place] [address], [place] [address] Jun, [facility] [address] [id number] [address] [place] [address], [place] [address] May, [facility] [address] [facility] [id number] [address] [place] [address] 16 Mar, 2010 IMMUNIZATIONS No Known Immunizations SOCIAL HISTORY Never Assessed REASON FOR VISIT PLAN OF CARE VITAL SIGNS MEDICATIONS Unknown Medications RESULTS No Results PROCEDURES Procedure Date Ordered Result Body Site BASIC METABOLIC PANEL February 08, 2012 VENIPUNCT, ROUTINE* February 08, 2012 INSTRUCTIONS MEDICATIONS ADMINISTERED No Known Medications MEDICAL (GENERAL) HISTORY Type Description Date Medical History Hypertension Medical History Chronic obstructive pulmonary disease Medical History Type 2 diabetes mellitus Medical History Psychiatric disorders depression Surgical History Hysterectomy total abdominal 1995 Surgical History Orthopedic Surgery Surgical History Scleral buckle Hospitalization History No Hospitalization history informati on
--- OUTSIDE RECORDS SUMMARY | 2019-11-28 22:54 | XMS REPORT ---
Author Author Caren LYLE Organization [facility] Address [address] [place] [address] Care Team Providers Care Head Of Ict Name Role Phone LAURIE LYLE Unavailable PROBLEMS Type Condition ICD9-CM Code [id number] Code Onset Dates Condition S tatus SNOMED Code Problem COPD (chronic obstructive pulmonary disease) J44.9 Active 14251928 Problem Diabetes E11.9 Active 54303954 Problem Diabetic neuropathy E11.40 Active 486618113 Problem Arthritis M19.90 Active [id number] ALLERGIES No Information ENCOUNTERS Encounter Location Date Diagnosis [facility] [address] [facility] [id number] [address] [place] [id number] December, [facility] [address] [id number] [address] [place] [address] Aug, Arthritis M19.90 [facility] [address] [facility] [id number] [address] [place] [address] Jul, [facility] [address] [facility] [id number] [address] [place] [address] Jul, [facility] [address] [facility] [id number] [address] [place] [id number] Jul, [facility] [address] [id number] [address] [place] [address] Jul, [facility] [address] [facility] [id number] [address] [place] [address] Jul, Diabetes E11.9 ; Diabetic ne uropathy E11.40 ; Arthritis M19.90 and COPD (chronic obstructive pulmonary disease) J44.9 [facility] [address] [facility] [id number] [address] [place] [address] Jul, [facility] [address] [id number] [address] [place] [address], [place] [id number] 23 Jun, 2015 [facility] [address] [id number] [address] [place] [address], [place] [address] 23 Jun, 2015 [facility] [address] [id number] [address] [place] [address], [place] [address] 17 Jun, 2014 [facility] [address] [id number] [address] [place] [address], [place] [address] 10 Jun, 2014 [facility] [address] [id number] [address] [place] [address], [place] [address] 15 May, 2015 [facility] [address] [id number] [address] [place] [address], [place] [address] 13 May, 2015 [facility] [address] [id number] [address] [place] [address], [place] [address] 07 May, 2015 [facility] [address] [id number] [address] [place] [address], [place] [address] 22 Sep, 2014 [facility] [address] [id number] [address] [place] [address], [place] [address] 21 Sep, 2014 [facility] [address] [id number] [address] [place] [address], [place] [id number] 21 Sep, 2014 [facility] [address] [id number] [address] [place] [address], [place] [id number] 15 Sep, 2014 [facility] [address] [id number] [address] [place] [address], [place] [address] 11 Sep, 2014 [facility] [address] [id number] [address] [place] [address], [place] [address] 09 Sep, 2014 [facility] [address] [id number] [address] [place] [address], [place] [id number] 08 Sep, 2014 [facility] [address] [id number] [address] [place] [address], [place] [id number] 03 Sep, 2014 [facility] [address] [id number] [address] [place] [address] [address] Apr, [facility] [address] [facility] [id number] [address] [place] [address] Mar, [facility] [address] [facility] [id number] [address] [place] [address] Mar, [facility] [address] [facility] [id number] [address] [place] [id number] Mar, [facility] [address] [facility] [id number] [address] [place] [address] Mar, [facility] [address] [facility] [id number] [address] [place] [address] Mar, [facility] [address] [facility] [id number] [address] [place] [address] Mar, Diabetes mellitus 250.00 ; C OPD (chronic obstructive pulmonary disease) 496 ; Anxiety 300.00 and Arthritis 716.90 [facility] [address] [facility] [id number] [address] [place] [address] Feb, [facility] [address] [facility] [id number] [address] [place] [address] Feb, [facility] [address] [facility] [id number] [address] [place] [address] Feb, [facility] [address] [facility] [id number] [address] [place] [address] Feb, [facility] [address] [facility] [id number] [address] [place] [address] Jan, Seborrheic keratosis 702.19 and Nevus 216.9 [facility] [address] [facility] [id number] [address] [place] [address] Jan, [facility] [address] [facility] [id number] [address] [place] [address] Jan, Routine gynecological examin ation V72.31 ; Breast cancer screening V76.10 ; Hot flashes 627.2 ; Atypical nevi 216.9 and Constipation 564.00 [facility] [address] [id number] [address] [place] [address], [place] [address] Jan, [facility] [address] [id number] [address] [place] [address], [place] [address] December, [facility] [address] [id number] [address] [place] [address], [place] [address] December, [facility] [address] [id number] [address] [place] [address], [place] [address] Nov, [facility] [address] [id number] [address] [place] [address], [place] [address] Nov, [facility] [address] [id number] [address] [place] [address], [place] [address] Oct, [facility] [address] [id number] [address] [place] [address], [place] [address] 23 Oct, 2014 [facility] [address] [id number] [address] [place] [address], [place] [address] 18 Oct, 2014 [facility] [address] [id number] [address] [place] [address], [place] [address] 18 Oct, 2014 [facility] [address] [id number] [address] [place] [address], [place] [address] 17 Oct, 2014 [facility] [address] [id number] [address] [place] [address], [place] [address] 17 Oct, 2014 [facility] [address] [id number] [address] [place] [address] 16 Oct, 2014 [facility] [address] [id number] [address] [place] [address], [place] [address] 16 Oct, 2014 [facility] [address] [id number] [address] [place] [address], [place] [address] 11 Oct, 2014 [facility] [address] [id number] [address] [place] [address], [place] [address] 11 Oct, 2014 [facility] [address] [id number] [address] [place] [address], [place] [address] Sep, 2014 [facility] [address] [id number] [address] [place] [address], [place] [address] Sep, 2014 [facility] [address] [id number] [address] [place] [address], [place] [address] 19 Sep, 2014 [facility] [address] [id number] [address] [place] [address], [place] [id number] 18 Sep, 2014 [facility] [address] [id number] [address] [place] [address], [place] [address] Sep, 2014 [facility] [address] [id number] [address] [place] [address], [place] [address] Sep, 2014 [facility] [address] [id number] [address] [place] [address], [place] [address] Sep, 2014 [facility] [address] [id number] [address] [place] [address], [place] [address] Aug, [facility] [address] [id number] [address] [place] [address], [place] [address] Aug, [facility] [address] [id number] [address] [place] [address], [place] [address] Aug, [facility] [address] [id number] [address] [place] [address], [place] [address] Aug, [facility] [address] [id number] [address] [place] [address], [place] [address] Aug, [facility] [address] [id number] [address] [place] [address], [place] [address] Aug, [facility] [address] [id number] [address] [place] [address], [place] [address] Jul, [facility] [address] [id number] [address] [place] [address], [place] [address] Jul, [facility] [address] [id number] [address] [place] [address], [place] [address] Jul, [facility] [address] [id number] [address] [place] [address], [place] [address] Jul, [facility] [address] [id number] [address] [place] [address], [place] [address] Jul, [facility] [address] [id number] [address] [place] [address], [place] [address] Jun, [facility] [address] [id number] [address] [place] [address], [place] [address] Jun, [facility] [address] [id number] [address] [place] [address], [place] [id number] Jun, [facility] [address] [id number] [address] [place] [address], [place] [address] Jun, [facility] [address] [id number] [address] [place] [address], [place] [address] Jun, [facility] [address] [id number] [address] [place] [address], [place] [address] Jun, [facility] [address] [id number] [address] [place] [address], [place] [address] May, [facility] [address] [id number] [address] [place] [address], [place] [address] May, [facility] [address] [id number] [address] [place] [address], [place] [address] May, [facility] [address] [id number] [address] [place] [address] May, [facility] [address] [id number] [address] [place] [address], [place] [address] May, [facility] [address] [id number] [address] [place] [address], [place] [address] May, [facility] [address] [id number] [address] [place] [address], [place] [address] May, [facility] [address] [id number] [address] [place] [address], [place] [address] May, [facility] [address] [id number] [address] [place] [address], [place] [address] May, [facility] [address] [id number] [address] [place] [address], [place] [address] Apr, [facility] [address] [id number] [address] [place] [address], [place] [address] Apr, [facility] [address] [id number] [address] [place] [address], [place] [address] Apr, [facility] [address] [id number] [address] [place] [address], [place] [address] Apr, [facility] [address] [id number] [address] [place] [address], [place] [address] Mar, [facility] [address] [id number] [address] [place] [address], [place] [address] Mar, [facility] [address] [id number] [address] [place] [address], [place] [address] Mar, [facility] [address] [id number] [address] [place] [address], [place] [address] Mar, [facility] [address] [id number] [address] [place] [address], [place] [address] Mar, [facility] [address] [id number] [address] [place] [address], [place] [address] Mar, [facility] [address] [id number] [address] [place] [address], [place] [address] Feb, [facility] [address] [id number] [address] [place] [address], [place] [address] Feb, [facility] [address] [id number] [address] [place] [address], [place] [address] Feb, [facility] [address] [id number] [address] [place] [address], [place] [address] Feb, [facility] [address] [id number] [facility] [place] [address] Feb, 2013 [facility] [address] [id number] [facility] [place] [address] Feb, [facility] [address] [id number] [address] [place] [address], [place] [address] Feb, 2013 [facility] [address] [id number] [address] [place] [address], [place] [address] Feb, 2013 [facility] [address] [id number] [address] [place] [address], [place] [address] Feb, 2013 [facility] [address] [id number] [address] [place] [address], [place] [address] Feb, [facility] [address] [id number] [address] [place] [address], [place] [address] Feb, [facility] [address] [id number] [address] [place] [address], [place] [address] Feb, [facility] [address] [id number] [address] [place] [address], [place] [address] Jan, [facility] [address] [id number] [address] [place] [address], [place] [address] Jan, [facility] [address] [id number] [address] [place] [address], [place] [address] Jan, [facility] [address] [id number] [address] [place] [address], [place] [address] Jan, [facility] [address] [id number] [address] [place] [address], [place] [address] Jan, [facility] [address] [id number] [address] [place] [address], [place] [address] Jan, [facility] [address] [id number] [address] [place] [address], [place] [address] Jan, [facility] [address] [id number] [address] [place] [address], [place] [address] Jan, [facility] [address] [id number] [address] [place] [address], [place] [address] Jan, [facility] [address] [id number] [address] [place] [address], [place] [address] Jan, [facility] [address] [id number] [address] [place] [address], [place] [address] Jan, [facility] [address] [id number] [address] [place] [address], [place] [id number] Jan, [facility] [address] [id number] [address] [place] [address], [place] [address] Jan, [facility] [address] [id number] [address] [place] [address], [place] [address] Jan, [facility] [address] [id number] [address] [place] [address], [place] [address] Jan, [facility] [address] [id number] [address] [place] [address], [place] [address] Jan, [facility] [address] [id number] [address] [place] [address], [place] [address] Jan, [facility] [address] [id number] [address] [place] [address], [place] [address] December, [facility] [address] [id number] [address] [place] [address], [place] [address] December, [facility] [address] [id number] [address] [place] [address], [place] [address] December, [facility] [address] [id number] [address] [place] [address], [place] [address] December, [facility] [address] [id number] [address] [place] [address], [place] [address] December, [facility] [address] [id number] [address] [place] [address], [place] [address] December, [facility] [address] [id number] [address] [place] [address], [place] [address] Nov, [facility] [address] [id number] [address] [place] [address], [place] [address] Nov, [facility] [address] [id number] [address] [place] [address], [place] [address] Nov, [facility] [address] [id number] [address] [place] [address], [place] [address] Nov, [facility] [address] [id number] [address] [place] [address], [place] [address] Nov, [facility] [address] [id number] [address] [place] [address], [place] [address] Nov, [facility] [address] [id number] [address] [place] [address], [place] [address] Nov, [facility] [address] [id number] [address] [place] [address], [place] [address] Nov, [facility] [address] [id number] [address] [place] [address], [place] [address] Nov, [facility] [address] [id number] [address] [place] [address], [place] [address] Nov, [facility] [address] [id number] [address] [place] [address], [place] [address] Nov, [facility] [address] [id number] [address] [place] [address], [place] [address] Nov, [facility] [address] [id number] [address] [place] [address], [place] [address] Nov, [facility] [address] [id number] [address] [place] [address], [place] [address] Nov, [facility] [address] [id number] [address] [place] [address], [place] [address] Nov, [facility] [address] [id number] [address] [place] [address], [place] [address] Nov, [facility] [address] [id number] [address] [place] [address], [place] [address] Oct, [facility] [address] [id number] [address] [place] [address], [place] [address] Oct, [facility] [address] [id number] [address] [place] [address], [place] [address] Oct, [facility] [address] [id number] [address] [place] [address], [place] [address] Oct, [facility] [address] [id number] [address] [place] [address], [place] [id number] Oct, [facility] [address] [id number] [address] [place] [address], [place] [id number] Oct, [facility] [address] [id number] [address] [place] [address], [place] [id number] Oct, [facility] [address] [id number] [address] [place] [address], [place] [id number] Oct, [facility] [address] [id number] [address] [place] [address], [place] [id number] Sep, [facility] [address] [id number] [address] [place] [address], [place] [id number] Sep, [facility] [address] [id number] [address] [place] [address], [place] [id number] Sep, [facility] [address] [id number] [address] [place] [address], [place] [id number] Sep, [facility] [address] [id number] [address] [place] [address], [place] [id number] Sep, [facility] [address] [id number] [address] [place] [address], [place] [id number] Sep, [facility] [address] [id number] [address] [place] [address], [place] [id number] Aug, [facility] [address] [id number] [address] [place] [address], [place] [id number] Aug, [facility] [address] [id number] [address] [place] [address], [place] [id number] Aug, [facility] [address] [id number] [address] [place] [address], [place] [id number] Aug, [facility] [address] [id number] [address] [place] [address], [place] [id number] Aug, [facility] [address] [id number] [address] [place] [address], [place] [id number] Aug, [facility] [address] [id number] [address] [place] [address], [place] [id number] Aug, [facility] [address] [id number] [address] [place] [address], [place] [id number] Aug, [facility] [address] [id number] [address] [place] [address], [place] [id number] Jul, [facility] [address] [id number] [address] [place] [address], [place] [id number] Jul, [facility] [address] [id number] [address] [place] [address], [place] [id number] Jul, [facility] [address] [id number] [address] [place] [address], [place] [id number] Jul, [facility] [address] [id number] [address] [place] [address], [place] [id number] Jul, [facility] [address] [id number] [address] [place] [address], [place] [id number] Jul, [facility] [address] [id number] [address] [place] [address], [place] [id number] Jul, [facility] [address] [id number] [address] [place] [address], [place] [id number] Jul, [facility] [address] [id number] [address] [place] [address], [place] [id number] Jul, [facility] [address] [id number] [address] [place] [address], [place] [id number] 14 Jun, 2013 [facility] [address] [id number] [address] [place] [address], [place] [id number] 14 Jun, 2013 [facility] [address] [id number] [address] [place] [address], [place] [id number] Jun, [facility] [address] [id number] [address] [place] [address], [place] [id number] Jun, [facility] [address] [id number] [address] [place] [address], [place] [id number] Jun, [facility] [address] [id number] [address] [place] [address], [place] [id number] Jun, [facility] [address] [id number] [address] [place] [address], [place] [address] 31 May, 2013 [facility] [address] [id number] [address] [place] [address], [place] [id number] 31 May, 2013 [facility] [address] [id number] [address] [place] [address], [place] [address] 17 May, 2013 [facility] [address] [id number] [address] [place] [address], [place] [address] 17 May, 2013 [facility] [address] [id number] [address] [place] [address], [place] [id number] 14 May, 2013 [facility] [address] [id number] [address] [place] [address], [place] [id number] 14 May, 2013 [facility] [address] [id number] [address] [place] [address], [place] [id number] 10 May, 2013 [facility] [address] [id number] [address] [place] [address], [place] [id number] 10 May, 2013 [facility] [address] [id number] [address] [place] [id number] 07 May, 2013 [facility] [address] [id number] [address] [place] [id number] 20 Sep, 2012 [facility] [address] [id number] [address] [place] [address], [place] [address] 19 Sep, 2012 [facility] [address] [id number] [address] [place] [address], [place] [id number] 12 Apr, 2012 [facility] [address] [id number] [address] [place] [address], [place] [id number] 24 Sep, 2011 [facility] [address] [id number] [address] [place] [address], [place] [id number] 21 Sep, 2011 [facility] [address] [id number] [address] [place] [address], [place] [id number] 21 Apr, 2011 [facility] [address] [id number] [address] [place] [address], [place] [id number] 14 Apr, 2011 [facility] [address] [id number] [address] [place] [address], [place] [id number] 10 Apr, 2011 [facility] [address] [id number] [address] [place] [address], [place] [id number] 06 Apr, 2011 [facility] [address] [id number] [address] [place] [address], [place] [id number] 04 Apr, 2011 [facility] [address] [id number] [address] [place] [address], [place] [id number] 31 Mar, 2012 [facility] [address] [id number] [address] [place] [address], [place] [id number] 28 Mar, 2012 [facility] [address] [id number] [address] [place] [address], [place] [id number] 27 Mar, 2012 [facility] [address] [id number] [address] [place] [address], [place] [id number] 10 Mar, 2012 [facility] [address] [id number] [address] [place] [address], [place] [id number] 08 Mar, 2012 [facility] [address] [id number] [address] [place] [address], [place] [id number] 03 Mar, 2012 [facility] [address] [id number] [address] [place] [address], [place] [id number] Feb, [facility] [address] [id number] [address] [place] [address], [place] [id number] Feb, [facility] [address] [id number] [address] [place] [address], [place] [id number] Feb, [facility] [address] [id number] [address] [place] [address], [place] [id number] Jan, [facility] [address] [id number] [address] [place] [address], [place] [id number] Jan, [facility] [address] [id number] [address] [place] [address], [place] [id number] Jan, [facility] [address] [id number] [address] [place] [address], [place] [id number] Jan, [facility] [address] [id number] [address] [place] [address], [place] [id number] Jan, [facility] [address] [id number] [address] [place] [address], [place] [id number] Jan, [facility] [address] [id number] [address] [place] [address], [place] [id number] Jan, [facility] [address] [id number] [address] [place] [address], [place] [id number] Jan, [facility] [address] [id number] [address] [place] [address], [place] [id number] December, [facility] [address] [id number] [address] [place] [address], [place] [id number] December, [facility] [address] [id number] [address] [place] [address], [place] [id number] December, [facility] [address] [id number] [address] [place] [address], [place] [id number] December, [facility] [address] [id number] [address] [place] [address], [place] [id number] December, [facility] [address] [id number] [address] [place] [address], [place] [id number] December, [facility] [address] [id number] [address] [place] [address], [place] [id number] 13 Nov, 2011 [facility] [address] [id number] [address] [place] [address], [place] [id number] 13 Nov, 2011 [facility] [address] [id number] [address] [place] [address], [place] [id number] Nov, [facility] [address] [id number] [address] [place] [address], [place] [id number] Nov, [facility] [address] [id number] [address] [place] [address], [place] [id number] Nov, [facility] [address] [id number] [address] [place] [address], [place] [id number] Oct, [facility] [address] [id number] [address] [place] [address], [place] [id number] 17 Sep, 2011 [facility] [address] [id number] [address] [place] [address], [place] [id number] Aug, [facility] [address] [id number] [address] [place] [address], [place] [id number] Aug, [facility] [address] [id number] [address] [place] [address], [place] [id number] Aug, [facility] [address] [id number] [address] [place] [address], [place] [id number] Aug, [facility] [address] [id number] [address] [place] [address], [place] [id number] Aug, [facility] [address] [id number] [address] [place] [address], [place] [id number] Jul, [facility] [address] [id number] [address] [place] [address], [place] [id number] Jul, [facility] [address] [id number] [address] [place] [address], [place] [id number] Jun, [facility] [address] [id number] [address] [place] [address], [place] [id number] Jun, [facility] [address] [id number] [address] [place] [address], [place] [id number] Jun, [facility] [address] [id number] [address] [place] [address], [place] [id number] May, [facility] [address] [id number] [address] [place] [address], [place] [id number] May, [facility] [address] [id number] [address] [place] [address], [place] [id number] 16 Oct, 2010 [facility] [address] [id number] [address] [place] [address], [place] [id number] Oct, [facility] [address] [id number] [address] [place] [address], [place] [id number] 29 Jul, 2010 [facility] [address] [id number] [address] [place] [address], [place] [id number] 08 Jul, 2010 [facility] [address] [id number] [address] [place] [address], [place] [id number] Jul, [facility] [address] [id number] [address] [place] [address], [place] [id number] Jul, [facility] [address] [id number] [address] [place] [address], [place] [id number] Jul, [facility] [address] [id number] [address] [place] [address], [place] [id number] Jun, [facility] [address] [id number] [address] [place] [address], [place] [id number] Jun, [facility] [address] [id number] [address] [place] [address], [place] [id number] Jun, [facility] [address] [id number] [address] [place] [address], [place] [id number] May, [facility] [address] [facility] [id number] [address] [place] [address] 16 Mar, 2010 IMMUNIZATIONS No Known Immunizations SOCIAL HISTORY Never Assessed REASON FOR VISIT PLAN OF CARE VITAL SIGNS MEDICATIONS Unknown Medications RESULTS No Results PROCEDURES Procedure Date Ordered Result Body Site VENIPUNCT, ROUTINE* November 06, 2014 INSTRUCTIONS MEDICATIONS ADMINISTERED No Known Medications MEDICAL (GENERAL) HISTORY Type Description Date Medical History Hypertension Medical History Chronic obstructive pulmonary disease Medical History Type 2 diabetes mellitus Medical History Psychiatric disorders depression Surgical History Hysterectomy total abdominal 1995 Surgical History Orthopedic Surgery Surgical History Scleral buckle Hospitalization History No Hospitalization history informati on
--- OUTSIDE RECORDS SUMMARY | 2019-11-28 22:54 | XMS REPORT ---
Author Author Caren LYLE Organization [facility] Address [address] [place] [address] Care Team Providers Care Pump Installer Name Role Phone LAURIE LYLE Unavailable PROBLEMS Type Condition ICD9-CM Code OTY26-QV Code Onset Dates Condition S tatus SNOMED Code Problem COPD (chronic obstructive pulmonary disease) J44.9 Active 52877890 Problem Diabetes E11.9 Active 40182691 Problem Diabetic neuropathy E11.40 Active 640772007 Problem Arthritis M19.90 Active 5112588 ALLERGIES No Information ENCOUNTERS Encounter Location Date Diagnosis [facility] [address] [facility] [id number] [address] [place] [address] December, [facility] [address] [id number] [address] [place] [address] Aug, Arthritis M19.90 [facility] [address] [facility] [id number] [address] [place] [address] Jul, [facility] [address] [facility] [id number] [address] [place] [address] Jul, [facility] [address] [facility] [id number] [address] [place] [address] Jul, [facility] [address] [id number] [address] [place] [address] Jul, [facility] [address] [facility] [id number] [address] [place] [address] Jul, Diabetes E11.9 ; Diabetic ne uropathy E11.40 ; Arthritis M19.90 and COPD (chronic obstructive pulmonary disease) J44.9 [facility] [address] [facility] [id number] [address] [place] [address] Jul, [facility] [address] [id number] [address] [place] [address], [place] [address] 23 Jun, 2015 [facility] [address] [id number] [address] [place] [address], [place] [address] 23 Jun, 2015 [facility] [address] [id number] [address] [place] [address], [place] [address] 17 Jun, 2014 [facility] [address] [id number] [address] [place] [address], [place] [address] 10 Jun, 2014 [facility] [address] [id number] [address] [place] [address], [place] [address] 15 May, 2015 [facility] [address] [id number] [address] [place] [address], [place] [address] 13 May, 2015 [facility] [address] [id number] [address] [place] [address], [place] [address] 07 May, 2015 [facility] [address] [id number] [address] [place] [address], [place] [address] 22 Sep, 2014 [facility] [address] [id number] [address] [place] [address], [place] [address] 21 Sep, 2014 [facility] [address] [id number] [address] [place] [address], [place] [address] 21 Sep, 2014 [facility] [address] [id number] [address] [place] [address], [place] [address] 15 Sep, 2014 [facility] [address] [id number] [address] [place] [address], [place] [address] 11 Sep, 2014 [facility] [address] [id number] [address] [place] [address], [place] [address] 09 Sep, 2014 [facility] [address] [id number] [address] [place] [address], [place] [address] 08 Sep, 2014 [facility] [address] [id number] [address] [place] [address], [place] [address] 03 Sep, 2014 [facility] [address] [id number] [address] [place] [address] [address] Apr, [facility] [address] [facility] [id number] [address] [place] [address] Mar, [facility] [address] [facility] [id number] [address] [place] [address] Mar, [facility] [address] [facility] [id number] [address] [place] [address] Mar, [facility] [address] [facility] [id number] [address] [place] [address] Mar, [facility] [address] [facility] [id number] [address] [place] [address] Mar, [facility] [address] [facility] [id number] [address] [place] [address] Mar, Diabetes mellitus 250.00 ; C OPD (chronic obstructive pulmonary disease) 496 ; Anxiety 300.00 and Arthritis 716.90 [facility] [address] [facility] [id number] [address] [place] [address] Feb, [facility] [address] [facility] [id number] [address] [place] [address] Feb, [facility] [address] [facility] [id number] [address] [place] [address] Feb, [facility] [address] [facility] [id number] [address] [place] [address] Feb, [facility] [address] [facility] [id number] [address] [place] [address] Jan, Seborrheic keratosis 702.19 and Nevus 216.9 [facility] [address] [facility] [id number] [address] [place] [address] Jan, [facility] [address] [facility] [id number] [address] [place] [address] Jan, Routine gynecological examin ation V72.31 ; Breast cancer screening V76.10 ; Hot flashes 627.2 ; Atypical nevi 216.9 and Constipation 564.00 [facility] [address] [id number] [address] [place] [address], [place] [address] Jan, [facility] [address] [id number] [address] [place] [address], [place] [address] December, [facility] [address] [id number] [address] [place] [address], [place] [address] December, [facility] [address] [id number] [address] [place] [address], [place] [address] Nov, [facility] [address] [id number] [address] [place] [address], [place] [address] Nov, [facility] [address] [id number] [address] [place] [address], [place] [address] Oct, [facility] [address] [id number] [address] [place] [address], [place] [address] 23 Oct, 2014 [facility] [address] [id number] [address] [place] [address], [place] [address] 18 Oct, 2014 [facility] [address] [id number] [address] [place] [address], [place] [address] 18 Oct, 2014 [facility] [address] [id number] [address] [place] [address], [place] [address] 17 Oct, 2014 [facility] [address] [id number] [address] [place] [address], [place] [address] 17 Oct, 2014 [facility] [address] [id number] [address] [place] [address] 16 Oct, 2014 [facility] [address] [id number] [address] [place] [address], [place] [address] 16 Oct, 2014 [facility] [address] [id number] [address] [place] [address], [place] [address] 11 Oct, 2014 [facility] [address] [id number] [address] [place] [address], [place] [address] 11 Oct, 2014 [facility] [address] [id number] [address] [place] [address], [place] [address] Sep, 2014 [facility] [address] [id number] [address] [place] [address], [place] [address] Sep, 2014 [facility] [address] [id number] [address] [place] [address], [place] [address] 19 Sep, 2014 [facility] [address] [id number] [address] [place] [address], [place] [address] 18 Sep, 2014 [facility] [address] [id number] [address] [place] [address], [place] [address] Sep, 2014 [facility] [address] [id number] [address] [place] [address], [place] [address] Sep, 2014 [facility] [address] [id number] [address] [place] [address], [place] [address] Sep, 2014 [facility] [address] [id number] [address] [place] [address], [place] [address] Aug, [facility] [address] [id number] [address] [place] [address], [place] [address] Aug, [facility] [address] [id number] [address] [place] [address], [place] [address] Aug, [facility] [address] [id number] [address] [place] [address], [place] [address] Aug, [facility] [address] [id number] [address] [place] [address], [place] [address] Aug, [facility] [address] [id number] [address] [place] [address], [place] [address] Aug, [facility] [address] [id number] [address] [place] [address], [place] [address] Jul, [facility] [address] [id number] [address] [place] [address], [place] [address] Jul, [facility] [address] [id number] [address] [place] [address], [place] [address] Jul, [facility] [address] [id number] [address] [place] [address], [place] [address] Jul, [facility] [address] [id number] [address] [place] [address], [place] [address] Jul, [facility] [address] [id number] [address] [place] [address], [place] [address] Jun, [facility] [address] [id number] [address] [place] [address], [place] [address] Jun, [facility] [address] [id number] [address] [place] [address], [place] [address] Jun, [facility] [address] [id number] [address] [place] [address], [place] [address] Jun, [facility] [address] [id number] [address] [place] [address], [place] [address] Jun, [facility] [address] [id number] [address] [place] [address], [place] [address] Jun, [facility] [address] [id number] [address] [place] [address], [place] [address] May, [facility] [address] [id number] [address] [place] [address], [place] [address] May, [facility] [address] [id number] [address] [place] [address], [place] [address] May, [facility] [address] [id number] [address] [place] [address] May, [facility] [address] [id number] [address] [place] [address], [place] [address] May, [facility] [address] [id number] [address] [place] [address], [place] [address] May, [facility] [address] [id number] [address] [place] [address], [place] [address] May, [facility] [address] [id number] [address] [place] [address], [place] [address] May, [facility] [address] [id number] [address] [place] [address], [place] [address] May, [facility] [address] [id number] [address] [place] [address], [place] [address] Apr, [facility] [address] [id number] [address] [place] [address], [place] [address] Apr, [facility] [address] [id number] [address] [place] [address], [place] [address] Apr, [facility] [address] [id number] [address] [place] [address], [place] [address] Apr, [facility] [address] [id number] [address] [place] [address], [place] [address] Mar, [facility] [address] [id number] [address] [place] [address], [place] [address] Mar, [facility] [address] [id number] [address] [place] [address], [place] [address] Mar, [facility] [address] [id number] [address] [place] [address], [place] [address] Mar, [facility] [address] [id number] [address] [place] [address], [place] [address] Mar, [facility] [address] [id number] [address] [place] [address], [place] [address] Mar, [facility] [address] [id number] [address] [place] [address], [place] [address] Feb, [facility] [address] [id number] [address] [place] [address], [place] [address] Feb, [facility] [address] [id number] [address] [place] [address], [place] [address] Feb, [facility] [address] [id number] [address] [place] [address], [place] [address] Feb, [facility] [address] [id number] [facility] [place] [address] Feb, 2013 [facility] [address] [id number] [facility] [place] [address] Feb, [facility] [address] [id number] [address] [place] [address], [place] [address] Feb, 2013 [facility] [address] [id number] [address] [place] [address], [place] [address] Feb, 2013 [facility] [address] [id number] [address] [place] [address], [place] [address] Feb, 2013 [facility] [address] [id number] [address] [place] [address], [place] [address] Feb, [facility] [address] [id number] [address] [place] [address], [place] [address] Feb, [facility] [address] [id number] [address] [place] [address], [place] [address] Feb, [facility] [address] [id number] [address] [place] [address], [place] [address] Jan, [facility] [address] [id number] [address] [place] [address], [place] [address] Jan, [facility] [address] [id number] [address] [place] [address], [place] [address] Jan, [facility] [address] [id number] [address] [place] [address], [place] [address] Jan, [facility] [address] [id number] [address] [place] [address], [place] [address] Jan, [facility] [address] [id number] [address] [place] [address], [place] [address] Jan, [facility] [address] [id number] [address] [place] [address], [place] [address] Jan, [facility] [address] [id number] [address] [place] [address], [place] [address] Jan, [facility] [address] [id number] [address] [place] [address], [place] [address] Jan, [facility] [address] [id number] [address] [place] [address], [place] [address] Jan, [facility] [address] [id number] [address] [place] [address], [place] [address] Jan, [facility] [address] [id number] [address] [place] [address], [place] [address] Jan, [facility] [address] [id number] [address] [place] [address], [place] [address] Jan, [facility] [address] [id number] [address] [place] [address], [place] [address] Jan, [facility] [address] [id number] [address] [place] [address], [place] [address] Jan, [facility] [address] [id number] [address] [place] [address], [place] [address] Jan, [facility] [address] [id number] [address] [place] [address], [place] [address] Jan, [facility] [address] [id number] [address] [place] [address], [place] [address] December, [facility] [address] [id number] [address] [place] [address], [place] [address] December, [facility] [address] [id number] [address] [place] [address], [place] [address] December, [facility] [address] [id number] [address] [place] [address], [place] [address] December, [facility] [address] [id number] [address] [place] [address], [place] [address] December, [facility] [address] [id number] [address] [place] [address], [place] [address] December, [facility] [address] [id number] [address] [place] [address], [place] [address] Nov, [facility] [address] [id number] [address] [place] [address], [place] [address] Nov, [facility] [address] [id number] [address] [place] [address], [place] [address] Nov, [facility] [address] [id number] [address] [place] [address], [place] [address] Nov, [facility] [address] [id number] [address] [place] [address], [place] [address] Nov, [facility] [address] [id number] [address] [place] [address], [place] [address] Nov, [facility] [address] [id number] [address] [place] [address], [place] [address] Nov, [facility] [address] [id number] [address] [place] [address], [place] [address] Nov, [facility] [address] [id number] [address] [place] [address], [place] [address] Nov, [facility] [address] [id number] [address] [place] [address], [place] [address] Nov, [facility] [address] [id number] [address] [place] [address], [place] [address] Nov, [facility] [address] [id number] [address] [place] [address], [place] [address] Nov, [facility] [address] [id number] [address] [place] [address], [place] [address] Nov, [facility] [address] [id number] [address] [place] [address], [place] [address] Nov, [facility] [address] [id number] [address] [place] [address], [place] [address] Nov, [facility] [address] [id number] [address] [place] [address], [place] [address] Nov, [facility] [address] [id number] [address] [place] [address], [place] [address] Oct, [facility] [address] [id number] [address] [place] [address], [place] [address] Oct, [facility] [address] [id number] [address] [place] [address], [place] [address] Oct, [facility] [address] [id number] [address] [place] [address], [place] [address] Oct, [facility] [address] [id number] [address] [place] [address], [place] [address] Oct, [facility] [address] [id number] [address] [place] [address], [place] [address] Oct, [facility] [address] [id number] [address] [place] [address], [place] [address] Oct, [facility] [address] [id number] [address] [place] [address], [place] [address] Oct, [facility] [address] [id number] [address] [place] [address], [place] [address] Sep, [facility] [address] [id number] [address] [place] [address], [place] [address] Sep, [facility] [address] [id number] [address] [place] [address], [place] [address] Sep, [facility] [address] [id number] [address] [place] [address], [place] [address] Sep, [facility] [address] [id number] [address] [place] [address], [place] [address] Sep, [facility] [address] [id number] [address] [place] [address], [place] [address] Sep, [facility] [address] [id number] [address] [place] [address], [place] [address] Aug, [facility] [address] [id number] [address] [place] [address], [place] [address] Aug, [facility] [address] [id number] [address] [place] [address], [place] [address] Aug, [facility] [address] [id number] [address] [place] [address], [place] [address] Aug, [facility] [address] [id number] [address] [place] [address], [place] [address] Aug, [facility] [address] [id number] [address] [place] [address], [place] [address] Aug, [facility] [address] [id number] [address] [place] [address], [place] [address] Aug, [facility] [address] [id number] [address] [place] [address], [place] [address] Aug, [facility] [address] [id number] [address] [place] [address], [place] [address] Jul, [facility] [address] [id number] [address] [place] [address], [place] [address] Jul, [facility] [address] [id number] [address] [place] [address], [place] [address] Jul, [facility] [address] [id number] [address] [place] [address], [place] [address] Jul, [facility] [address] [id number] [address] [place] [address], [place] [address] Jul, [facility] [address] [id number] [address] [place] [address], [place] [address] Jul, [facility] [address] [id number] [address] [place] [address], [place] [address] Jul, [facility] [address] [id number] [address] [place] [address], [place] [address] Jul, [facility] [address] [id number] [address] [place] [address], [place] [address] Jul, [facility] [address] [id number] [address] [place] [address], [place] [address] 14 Jun, 2013 [facility] [address] [id number] [address] [place] [address], [place] [address] 14 Jun, 2013 [facility] [address] [id number] [address] [place] [address], [place] [address] Jun, [facility] [address] [id number] [address] [place] [address], [place] [address] Jun, [facility] [address] [id number] [address] [place] [address], [place] [address] Jun, [facility] [address] [id number] [address] [place] [address], [place] [address] Jun, [facility] [address] [id number] [address] [place] [address], [place] [address] 31 May, 2013 [facility] [address] [id number] [address] [place] [address], [place] [address] 31 May, 2013 [facility] [address] [id number] [address] [place] [address], [place] [address] 17 May, 2013 [facility] [address] [id number] [address] [place] [address], [place] [address] 17 May, 2013 [facility] [address] [id number] [address] [place] [address], [place] [address] 14 May, 2013 [facility] [address] [id number] [address] [place] [address], [place] [address] 14 May, 2013 [facility] [address] [id number] [address] [place] [address], [place] [address] 10 May, 2013 [facility] [address] [id number] [address] [place] [address], [place] [address] 10 May, 2013 [facility] [address] [id number] [address] [place] [address] 07 May, 2013 [facility] [address] [id number] [address] [place] [address] 20 Sep, 2012 [facility] [address] [id number] [address] [place] [address], [place] [address] 19 Sep, 2012 [facility] [address] [id number] [address] [place] [address], [place] [address] 12 Apr, 2012 [facility] [address] [id number] [address] [place] [address], [place] [address] 24 Sep, 2011 [facility] [address] [id number] [address] [place] [address], [place] [address] 21 Sep, 2011 [facility] [address] [id number] [address] [place] [address], [place] [address] 21 Apr, 2011 [facility] [address] [id number] [address] [place] [address], [place] [address] 14 Apr, 2011 [facility] [address] [id number] [address] [place] [address], [place] [address] 10 Apr, 2011 [facility] [address] [id number] [address] [place] [address], [place] [address] 06 Apr, 2011 [facility] [address] [id number] [address] [place] [address], [place] [address] 04 Apr, 2011 [facility] [address] [id number] [address] [place] [address], [place] [address] 31 Mar, 2012 [facility] [address] [id number] [address] [place] [address], [place] [address] 28 Mar, 2012 [facility] [address] [id number] [address] [place] [address], [place] [address] 27 Mar, 2012 [facility] [address] [id number] [address] [place] [address], [place] [address] 10 Mar, 2012 [facility] [address] [id number] [address] [place] [address], [place] [address] 08 Mar, 2012 [facility] [address] [id number] [address] [place] [address], [place] [address] 03 Mar, 2012 [facility] [address] [id number] [address] [place] [address], [place] [address] Feb, [facility] [address] [id number] [address] [place] [address], [place] [address] Feb, [facility] [address] [id number] [address] [place] [address], [place] [address] Feb, [facility] [address] [id number] [address] [place] [address], [place] [address] Jan, [facility] [address] [id number] [address] [place] [address], [place] [address] Jan, [facility] [address] [id number] [address] [place] [address], [place] [address] Jan, [facility] [address] [id number] [address] [place] [address], [place] [address] Jan, [facility] [address] [id number] [address] [place] [address], [place] [address] Jan, [facility] [address] [id number] [address] [place] [address], [place] [address] Jan, [facility] [address] [id number] [address] [place] [address], [place] [address] Jan, [facility] [address] [id number] [address] [place] [address], [place] [address] Jan, [facility] [address] [id number] [address] [place] [address], [place] [address] December, [facility] [address] [id number] [address] [place] [address], [place] [address] December, [facility] [address] [id number] [address] [place] [address], [place] [address] December, [facility] [address] [id number] [address] [place] [address], [place] [address] December, [facility] [address] [id number] [address] [place] [address], [place] [address] December, [facility] [address] [id number] [address] [place] [address], [place] [address] December, [facility] [address] [id number] [address] [place] [address], [place] [address] 13 Nov, 2011 [facility] [address] [id number] [address] [place] [address], [place] [address] 13 Nov, 2011 [facility] [address] [id number] [address] [place] [address], [place] [address] Nov, [facility] [address] [id number] [address] [place] [address], [place] [address] Nov, [facility] [address] [id number] [address] [place] [address], [place] [address] Nov, [facility] [address] [id number] [address] [place] [address], [place] [address] Oct, [facility] [address] [id number] [address] [place] [address], [place] [address] 17 Sep, 2011 [facility] [address] [id number] [address] [place] [address], [place] [address] Aug, [facility] [address] [id number] [address] [place] [address], [place] [address] Aug, [facility] [address] [id number] [address] [place] [address], [place] [address] Aug, [facility] [address] [id number] [address] [place] [address], [place] [address] Aug, [facility] [address] [id number] [address] [place] [address], [place] [address] Aug, [facility] [address] [id number] [address] [place] [address], [place] [address] Jul, [facility] [address] [id number] [address] [place] [address], [place] [address] Jul, [facility] [address] [id number] [address] [place] [address], [place] [address] Jun, [facility] [address] [id number] [address] [place] [address], [place] [address] Jun, [facility] [address] [id number] [address] [place] [address], [place] [address] Jun, [facility] [address] [id number] [address] [place] [address], [place] [address] May, [facility] [address] [id number] [address] [place] [address], [place] [address] May, [facility] [address] [id number] [address] [place] [address], [place] [address] 16 Oct, 2010 [facility] [address] [id number] [address] [place] [address], [place] [address] Oct, [facility] [address] [id number] [address] [place] [address], [place] [address] 29 Jul, 2010 [facility] [address] [id number] [address] [place] [address], [place] [address] 08 Jul, 2010 [facility] [address] [id number] [address] [place] [address], [place] [address] Jul, [facility] [address] [id number] [address] [place] [address], [place] [address] Jul, [facility] [address] [id number] [address] [place] [address], [place] [address] Jul, [facility] [address] [id number] [address] [place] [address], [place] [address] Jun, [facility] [address] [id number] [address] [place] [address], [place] [address] Jun, [facility] [address] [id number] [address] [place] [address], [place] [address] Jun, [facility] [address] [id number] [address] [place] [address], [place] [address] May, [facility] [address] [facility] [id number] [address] [place] [address] 16 Mar, 2010 IMMUNIZATIONS No Known Immunizations SOCIAL HISTORY Never Assessed REASON FOR VISIT PLAN OF CARE VITAL SIGNS Height 60 in 2014-11-12 Weight 199.2 lbs 2014-11-12 Temperature 98 degrees Fahrenheit 2014-11-12 Heart Rate 88 bpm 2014-11-12 Respiratory Rate 18 2014-11-12 Blood pressure systolic 140 mmHg 2014-11-12 Blood pressure diastolic 86 mmHg 2014-11-12 MEDICATIONS Unknown Medications RESULTS No Results PROCEDURES Procedure Date Ordered Result Body Site GLYCATED HEMOGLOBIN TEST November 12, 2014 INSTRUCTIONS MEDICATIONS ADMINISTERED No Known Medications MEDICAL (GENERAL) HISTORY Type Description Date Medical History Hypertension Medical History Chronic obstructive pulmonary disease Medical History Type 2 diabetes mellitus Medical History Psychiatric disorders depression Surgical History Hysterectomy total abdominal 1996 Surgical History Orthopedic Surgery Surgical History Scleral buckle Hospitalization History No Hospitalization history informati on
--- OUTSIDE RECORDS SUMMARY | 2019-11-28 22:54 | XMS REPORT ---
Author Author Caren LYLE Organization [facility] Address [address] [place] [address] Care Team Providers Care Territory Service Representative Name Role Phone LAURIE LYLE Unavailable PROBLEMS Type Condition ICD9-CM Code [id number] Code Onset Dates Condition S tatus SNOMED Code Problem COPD (chronic obstructive pulmonary disease) J44.9 Active 53813616 Problem Diabetes E11.9 Active 47871900 Problem Diabetic neuropathy E11.40 Active 899278164 Problem Arthritis M19.90 Active 2989319 ALLERGIES No Information ENCOUNTERS Encounter Location Date Diagnosis [facility] [address] [facility] [id number] [address] [place] [address] December, [facility] [address] [id number] [address] [place] [address] Aug, Arthritis M19.90 [facility] [address] [facility] [id number] [address] [place] [address] Jul, [facility] [address] [facility] [id number] [address] [place] [address] Jul, [facility] [address] [facility] [id number] [address] [place] [id number] Jul, [facility] [address] [id number] [address] [place] [address] Jul, [facility] [address] [facility] [id number] [address] [place] [address] Jul, Diabetes E11.9 ; Diabetic ne uropathy E11.40 ; Arthritis M19.90 and COPD (chronic obstructive pulmonary disease) J44.9 [facility] [address] [facility] [id number] [address] [place] [address] Jul, [facility] [address] [id number] [address] [place] [address], [place] [address] 23 Jun, 2015 [facility] [address] [id number] [address] [place] [address], [place] [address] 23 Jun, 2015 [facility] [address] [id number] [address] [place] [address], [place] [address] 17 Jun, 2014 [facility] [address] [id number] [address] [place] [address], [place] [address] 10 Jun, 2014 [facility] [address] [id number] [address] [place] [address], [place] [address] 15 May, 2015 [facility] [address] [id number] [address] [place] [address], [place] [address] 13 May, 2015 [facility] [address] [id number] [address] [place] [address], [place] [address] 07 May, 2015 [facility] [address] [id number] [address] [place] [address], [place] [address] 22 Sep, 2014 [facility] [address] [id number] [address] [place] [address], [place] [address] 21 Sep, 2014 [facility] [address] [id number] [address] [place] [address], [place] [address] 21 Sep, 2014 [facility] [address] [id number] [address] [place] [address], [place] [address] 15 Sep, 2014 [facility] [address] [id number] [address] [place] [address], [place] [address] 11 Sep, 2014 [facility] [address] [id number] [address] [place] [address], [place] [address] 09 Sep, 2014 [facility] [address] [id number] [address] [place] [address], [place] [address] 08 Sep, 2014 [facility] [address] [id number] [address] [place] [address], [place] [address] 03 Sep, 2014 [facility] [address] [id number] [address] [place] [address] [address] Apr, [facility] [address] [facility] [id number] [address] [place] [address] Mar, [facility] [address] [facility] [id number] [address] [place] [address] Mar, [facility] [address] [facility] [id number] [address] [place] [address] Mar, [facility] [address] [facility] [id number] [address] [place] [address] Mar, [facility] [address] [facility] [id number] [address] [place] [address] Mar, [facility] [address] [facility] [id number] [address] [place] [address] Mar, Diabetes mellitus 250.00 ; C OPD (chronic obstructive pulmonary disease) 496 ; Anxiety 300.00 and Arthritis 716.90 [facility] [address] [facility] [id number] [address] [place] [address] Feb, [facility] [address] [facility] [id number] [address] [place] [address] Feb, [facility] [address] [facility] [id number] [address] [place] [address] Feb, [facility] [address] [facility] [id number] [address] [place] [address] Feb, [facility] [address] [facility] [id number] [address] [place] [address] Jan, Seborrheic keratosis 702.19 and Nevus 216.9 [facility] [address] [facility] [id number] [address] [place] [address] Jan, [facility] [address] [facility] [id number] [address] [place] [address] Jan, Routine gynecological examin ation V72.31 ; Breast cancer screening V76.10 ; Hot flashes 627.2 ; Atypical nevi 216.9 and Constipation 564.00 [facility] [address] [id number] [address] [place] [address], [place] [address] Jan, [facility] [address] [id number] [address] [place] [address], [place] [address] December, [facility] [address] [id number] [address] [place] [address], [place] [address] December, [facility] [address] [id number] [address] [place] [address], [place] [address] Nov, [facility] [address] [id number] [address] [place] [address], [place] [address] Nov, [facility] [address] [id number] [address] [place] [address], [place] [address] Oct, [facility] [address] [id number] [address] [place] [address], [place] [address] 23 Oct, 2014 [facility] [address] [id number] [address] [place] [address], [place] [address] 18 Oct, 2014 [facility] [address] [id number] [address] [place] [address], [place] [address] 18 Oct, 2014 [facility] [address] [id number] [address] [place] [address], [place] [address] 17 Oct, 2014 [facility] [address] [id number] [address] [place] [address], [place] [address] 17 Oct, 2014 [facility] [address] [id number] [address] [place] [address] 16 Oct, 2014 [facility] [address] [id number] [address] [place] [address], [place] [address] 16 Oct, 2014 [facility] [address] [id number] [address] [place] [address], [place] [address] 11 Oct, 2014 [facility] [address] [id number] [address] [place] [address], [place] [address] 11 Oct, 2014 [facility] [address] [id number] [address] [place] [address], [place] [address] Sep, 2014 [facility] [address] [id number] [address] [place] [address], [place] [address] Sep, 2014 [facility] [address] [id number] [address] [place] [address], [place] [address] 19 Sep, 2014 [facility] [address] [id number] [address] [place] [address], [place] [address] 18 Sep, 2014 [facility] [address] [id number] [address] [place] [address], [place] [address] Sep, 2014 [facility] [address] [id number] [address] [place] [address], [place] [address] Sep, 2014 [facility] [address] [id number] [address] [place] [address], [place] [address] Sep, 2014 [facility] [address] [id number] [address] [place] [address], [place] [address] Aug, [facility] [address] [id number] [address] [place] [address], [place] [address] Aug, [facility] [address] [id number] [address] [place] [address], [place] [address] Aug, [facility] [address] [id number] [address] [place] [address], [place] [address] Aug, [facility] [address] [id number] [address] [place] [address], [place] [address] Aug, [facility] [address] [id number] [address] [place] [address], [place] [address] Aug, [facility] [address] [id number] [address] [place] [address], [place] [address] Jul, [facility] [address] [id number] [address] [place] [address], [place] [address] Jul, [facility] [address] [id number] [address] [place] [address], [place] [address] Jul, [facility] [address] [id number] [address] [place] [address], [place] [address] Jul, [facility] [address] [id number] [address] [place] [address], [place] [address] Jul, [facility] [address] [id number] [address] [place] [address], [place] [address] Jun, [facility] [address] [id number] [address] [place] [address], [place] [address] Jun, [facility] [address] [id number] [address] [place] [address], [place] [address] Jun, [facility] [address] [id number] [address] [place] [address], [place] [address] Jun, [facility] [address] [id number] [address] [place] [address], [place] [address] Jun, [facility] [address] [id number] [address] [place] [address], [place] [address] Jun, [facility] [address] [id number] [address] [place] [address], [place] [address] May, [facility] [address] [id number] [address] [place] [address], [place] [address] May, [facility] [address] [id number] [address] [place] [address], [place] [address] May, [facility] [address] [id number] [address] [place] [address] May, [facility] [address] [id number] [address] [place] [address], [place] [address] May, [facility] [address] [id number] [address] [place] [address], [place] [address] May, [facility] [address] [id number] [address] [place] [address], [place] [address] May, [facility] [address] [id number] [address] [place] [address], [place] [address] May, [facility] [address] [id number] [address] [place] [address], [place] [address] May, [facility] [address] [id number] [address] [place] [address], [place] [address] Apr, [facility] [address] [id number] [address] [place] [address], [place] [address] Apr, [facility] [address] [id number] [address] [place] [address], [place] [address] Apr, [facility] [address] [id number] [address] [place] [address], [place] [address] Apr, [facility] [address] [id number] [address] [place] [address], [place] [address] Mar, [facility] [address] [id number] [address] [place] [address], [place] [address] Mar, [facility] [address] [id number] [address] [place] [address], [place] [address] Mar, [facility] [address] [id number] [address] [place] [address], [place] [address] Mar, [facility] [address] [id number] [address] [place] [address], [place] [address] Mar, [facility] [address] [id number] [address] [place] [address], [place] [address] Mar, [facility] [address] [id number] [address] [place] [address], [place] [address] Feb, [facility] [address] [id number] [address] [place] [address], [place] [address] Feb, [facility] [address] [id number] [address] [place] [address], [place] [address] Feb, [facility] [address] [id number] [address] [place] [address], [place] [address] Feb, [facility] [address] [id number] [facility] [place] [address] Feb, 2013 [facility] [address] [id number] [facility] [place] [address] Feb, [facility] [address] [id number] [address] [place] [address], [place] [address] Feb, 2013 [facility] [address] [id number] [address] [place] [address], [place] [address] Feb, 2013 [facility] [address] [id number] [address] [place] [address], [place] [address] Feb, 2013 [facility] [address] [id number] [address] [place] [address], [place] [address] Feb, [facility] [address] [id number] [address] [place] [address], [place] [address] Feb, [facility] [address] [id number] [address] [place] [address], [place] [address] Feb, [facility] [address] [id number] [address] [place] [address], [place] [address] Jan, [facility] [address] [id number] [address] [place] [address], [place] [address] Jan, [facility] [address] [id number] [address] [place] [address], [place] [address] Jan, [facility] [address] [id number] [address] [place] [address], [place] [address] Jan, [facility] [address] [id number] [address] [place] [address], [place] [address] Jan, [facility] [address] [id number] [address] [place] [address], [place] [address] Jan, [facility] [address] [id number] [address] [place] [address], [place] [address] Jan, [facility] [address] [id number] [address] [place] [address], [place] [address] Jan, [facility] [address] [id number] [address] [place] [address], [place] [address] Jan, [facility] [address] [id number] [address] [place] [address], [place] [address] Jan, [facility] [address] [id number] [address] [place] [address], [place] [address] Jan, [facility] [address] [id number] [address] [place] [address], [place] [address] Jan, [facility] [address] [id number] [address] [place] [address], [place] [address] Jan, [facility] [address] [id number] [address] [place] [address], [place] [address] Jan, [facility] [address] [id number] [address] [place] [address], [place] [address] Jan, [facility] [address] [id number] [address] [place] [address], [place] [address] Jan, [facility] [address] [id number] [address] [place] [address], [place] [address] Jan, [facility] [address] [id number] [address] [place] [address], [place] [address] December, [facility] [address] [id number] [address] [place] [address], [place] [address] December, [facility] [address] [id number] [address] [place] [address], [place] [address] December, [facility] [address] [id number] [address] [place] [address], [place] [address] December, [facility] [address] [id number] [address] [place] [address], [place] [address] December, [facility] [address] [id number] [address] [place] [address], [place] [address] December, [facility] [address] [id number] [address] [place] [address], [place] [address] Nov, [facility] [address] [id number] [address] [place] [address], [place] [address] Nov, [facility] [address] [id number] [address] [place] [address], [place] [address] Nov, [facility] [address] [id number] [address] [place] [address], [place] [address] Nov, [facility] [address] [id number] [address] [place] [address], [place] [address] Nov, [facility] [address] [id number] [address] [place] [address], [place] [address] Nov, [facility] [address] [id number] [address] [place] [address], [place] [address] Nov, [facility] [address] [id number] [address] [place] [address], [place] [address] Nov, [facility] [address] [id number] [address] [place] [address], [place] [address] Nov, [facility] [address] [id number] [address] [place] [address], [place] [address] Nov, [facility] [address] [id number] [address] [place] [address], [place] [address] Nov, [facility] [address] [id number] [address] [place] [address], [place] [address] Nov, [facility] [address] [id number] [address] [place] [address], [place] [address] Nov, [facility] [address] [id number] [address] [place] [address], [place] [address] Nov, [facility] [address] [id number] [address] [place] [address], [place] [address] Nov, [facility] [address] [id number] [address] [place] [address], [place] [address] Nov, [facility] [address] [id number] [address] [place] [address], [place] [address] Oct, [facility] [address] [id number] [address] [place] [address], [place] [address] Oct, [facility] [address] [id number] [address] [place] [address], [place] [address] Oct, [facility] [address] [id number] [address] [place] [address], [place] [address] Oct, [facility] [address] [id number] [address] [place] [address], [place] [address] Oct, [facility] [address] [id number] [address] [place] [address], [place] [address] Oct, [facility] [address] [id number] [address] [place] [address], [place] [id number] Oct, [facility] [address] [id number] [address] [place] [address], [place] [id number] Oct, [facility] [address] [id number] [address] [place] [address], [place] [id number] Sep, [facility] [address] [id number] [address] [place] [address], [place] [id number] Sep, [facility] [address] [id number] [address] [place] [address], [place] [id number] Sep, [facility] [address] [id number] [address] [place] [address], [place] [id number] Sep, [facility] [address] [id number] [address] [place] [address], [place] [id number] Sep, [facility] [address] [id number] [address] [place] [address], [place] [id number] Sep, [facility] [address] [id number] [address] [place] [address], [place] [id number] Aug, [facility] [address] [id number] [address] [place] [address], [place] [id number] Aug, [facility] [address] [id number] [address] [place] [address], [place] [id number] Aug, [facility] [address] [id number] [address] [place] [address], [place] [id number] Aug, [facility] [address] [id number] [address] [place] [address], [place] [id number] Aug, [facility] [address] [id number] [address] [place] [address], [place] [id number] Aug, [facility] [address] [id number] [address] [place] [address], [place] [id number] Aug, [facility] [address] [id number] [address] [place] [address], [place] [address] Aug, [facility] [address] [id number] [address] [place] [address], [place] [address] Jul, [facility] [address] [id number] [address] [place] [address], [place] [address] Jul, [facility] [address] [id number] [address] [place] [address], [place] [id number] Jul, [facility] [address] [id number] [address] [place] [address], [place] [id number] Jul, [facility] [address] [id number] [address] [place] [address], [place] [address] Jul, [facility] [address] [id number] [address] [place] [address], [place] [id number] Jul, [facility] [address] [id number] [address] [place] [address], [place] [id number] Jul, [facility] [address] [id number] [address] [place] [address], [place] [id number] Jul, [facility] [address] [id number] [address] [place] [address], [place] [id number] Jul, [facility] [address] [id number] [address] [place] [address], [place] [id number] 14 Jun, 2013 [facility] [address] [id number] [address] [place] [address], [place] [id number] 14 Jun, 2013 [facility] [address] [id number] [address] [place] [address], [place] [id number] Jun, [facility] [address] [id number] [address] [place] [address], [place] [id number] Jun, [facility] [address] [id number] [address] [place] [address], [place] [id number] Jun, [facility] [address] [id number] [address] [place] [address], [place] [id number] Jun, [facility] [address] [id number] [address] [place] [address], [place] [address] 31 May, 2013 [facility] [address] [id number] [address] [place] [address], [place] [id number] 31 May, 2013 [facility] [address] [id number] [address] [place] [address], [place] [id number] 17 May, 2013 [facility] [address] [id number] [address] [place] [address], [place] [id number] 17 May, 2013 [facility] [address] [id number] [address] [place] [address], [place] [id number] 14 May, 2013 [facility] [address] [id number] [address] [place] [address], [place] [id number] 14 May, 2013 [facility] [address] [id number] [address] [place] [address], [place] [address] 10 May, 2013 [facility] [address] [id number] [address] [place] [address], [place] [address] 10 May, 2013 [facility] [address] [id number] [address] [place] [id number] 07 May, 2013 [facility] [address] [id number] [address] [place] [address] 20 Sep, 2012 [facility] [address] [id number] [address] [place] [address], [place] [id number] 19 Sep, 2012 [facility] [address] [id number] [address] [place] [address], [place] [address] 12 Apr, 2012 [facility] [address] [id number] [address] [place] [address], [place] [id number] 24 Sep, 2011 [facility] [address] [id number] [address] [place] [address], [place] [id number] 21 Sep, 2011 [facility] [address] [id number] [address] [place] [address], [place] [address] 21 Apr, 2011 [facility] [address] [id number] [address] [place] [address], [place] [id number] 14 Apr, 2011 [facility] [address] [id number] [address] [place] [address], [place] [id number] 10 Apr, 2011 [facility] [address] [id number] [address] [place] [address], [place] [id number] 06 Apr, 2011 [facility] [address] [id number] [address] [place] [address], [place] [id number] 04 Apr, 2011 [facility] [address] [id number] [address] [place] [address], [place] [id number] 31 Mar, 2012 [facility] [address] [id number] [address] [place] [address], [place] [id number] 28 Mar, 2012 [facility] [address] [id number] [address] [place] [address], [place] [id number] 27 Mar, 2012 [facility] [address] [id number] [address] [place] [address], [place] [id number] 10 Mar, 2012 [facility] [address] [id number] [address] [place] [place] [address], [place] [id number] 08 Mar, 2012 [facility] [address] [id number] [address] [place] [address], [place] [id number] 03 Mar, 2012 [facility] [address] [id number] [address] [place] [address], [place] [id number] Feb, [facility] [address] [id number] [address] [place] [address], [place] [id number] Feb, [facility] [address] [id number] [address] [place] [address], [place] [id number] Feb, [facility] [address] [id number] [address] [place] [address], [place] [id number] Jan, [facility] [address] [id number] [address] [place] [address], [place] [id number] Jan, [facility] [address] [id number] [address] [place] [address], [place] [id number] Jan, [facility] [address] [id number] [address] [place] [address], [place] [id number] Jan, [facility] [address] [id number] [address] [place] [address], [place] [address] Jan, [facility] [address] [id number] [address] [place] [address], [place] [id number] Jan, [facility] [address] [id number] [address] [place] [address], [place] [id number] Jan, [facility] [address] [id number] [address] [place] [address], [place] [id number] Jan, [facility] [address] [id number] [address] [place] [address], [place] [address] December, [facility] [address] [id number] [address] [place] [address], [place] [id number] December, [facility] [address] [id number] [address] [place] [address], [place] [address] December, [facility] [address] [id number] [address] [place] [address], [place] [address] December, [facility] [address] [id number] [address] [place] [address], [place] [id number] December, [facility] [address] [id number] [address] [place] [address], [place] [address] December, [facility] [address] [id number] [address] [place] [address], [place] [address] 13 Nov, 2011 [facility] [address] [id number] [address] [place] [address], [place] [id number] 13 Nov, 2011 [facility] [address] [id number] [address] [place] [address], [place] [address] Nov, [facility] [address] [id number] [address] [place] [address], [place] [address] Nov, [facility] [address] [id number] [address] [place] [address], [place] [id number] Nov, [facility] [address] [id number] [address] [place] [address], [place] [address] Oct, [facility] [address] [id number] [address] [place] [address], [place] [id number] 17 Sep, 2011 [facility] [address] [id number] [address] [place] [address], [place] [id number] Aug, [facility] [address] [id number] [address] [place] [address], [place] [id number] Aug, [facility] [address] [id number] [address] [place] [address], [place] [address] Aug, [facility] [address] [id number] [address] [place] [address], [place] [address] Aug, [facility] [address] [id number] [address] [place] [address], [place] [id number] Aug, [facility] [address] [id number] [address] [place] [address], [place] [id number] Jul, [facility] [address] [id number] [address] [place] [address], [place] [address] Jul, [facility] [address] [id number] [address] [place] [address], [place] [id number] Jun, [facility] [address] [id number] [address] [place] [address], [place] [id number] Jun, [facility] [address] [id number] [address] [place] [address], [place] [address] Jun, [facility] [address] [id number] [address] [place] [address], [place] [id number] May, [facility] [address] [id number] [address] [place] [address], [place] [id number] May, [facility] [address] [id number] [address] [place] [address], [place] [id number] 16 Oct, 2010 [facility] [address] [id number] [address] [place] [address], [place] [address] Oct, [facility] [address] [id number] [address] [place] [address], [place] [id number] 29 Jul, 2010 [facility] [address] [id number] [address] [place] [address], [place] [id number] 08 Jul, 2010 [facility] [address] [id number] [address] [place] [address], [place] [address] Jul, [facility] [address] [id number] [address] [place] [address], [place] [address] Jul, [facility] [address] [id number] [address] [place] [address], [place] [address] Jul, [facility] [address] [id number] [address] [place] [address], [place] [address] Jun, [facility] [address] [id number] [address] [place] [address], [place] [address] Jun, [facility] [address] [id number] [address] [place] [address], [place] [address] Jun, [facility] [address] [id number] [address] [place] [address], [place] [address] May, [facility] [address] [facility] [id number] [address] [place] [address] 16 Mar, 2010 IMMUNIZATIONS No Known Immunizations [...]
--- OUTSIDE RECORDS SUMMARY | 2019-11-28 22:54 | XMS REPORT ---
Author Author Caren LYLE Organization [facility] Address [address] [place] [address] Care Team Providers Care Lofter Name Role Phone LAURIE LYLE Unavailable PROBLEMS Type Condition ICD9-CM Code DCK76-OV Code Onset Dates Condition S tatus SNOMED Code Problem COPD (chronic obstructive pulmonary disease) J44.9 Active 68203502 Problem Diabetes E11.9 Active 64293318 Problem Diabetic neuropathy E11.40 Active 726481288 Problem Arthritis M19.90 Active [id number] ALLERGIES No Information ENCOUNTERS Encounter Location Date Diagnosis [facility] [address] [facility] [id number] [address] [place] [id number] December, [facility] [address] [id number] [address] [place] [address] Aug, Arthritis M19.90 [facility] [address] [facility] [id number] [address] [place] [id number] Jul, [facility] [address] [facility] [id number] [address] [place] [id number] Jul, [facility] [address] [facility] [id number] [address] [place] [id number] Jul, [facility] [address] [id number] [address] [place] [address] Jul, [facility] [address] [facility] [id number] [address] [place] [id number] Jul, Diabetes E11.9 ; Diabetic ne uropathy E11.40 ; Arthritis M19.90 and COPD (chronic obstructive pulmonary disease) J44.9 [facility] [address] [facility] [id number] [address] [place] [id number] Jul, [facility] [address] [id number] [address] [place] [address], [place] [address] 23 Jun, 2015 [facility] [address] [id number] [address] [place] [address], [place] [address] 23 Jun, 2015 [facility] [address] [id number] [address] [place] [address], [place] [address] 17 Jun, 2014 [facility] [address] [id number] [address] [place] [address], [place] [address] 10 Jun, 2014 [facility] [address] [id number] [address] [place] [address], [place] [address] 15 May, 2015 [facility] [address] [id number] [address] [place] [address], [place] [address] 13 May, 2015 [facility] [address] [id number] [address] [place] [address], [place] [address] 07 May, 2015 [facility] [address] [id number] [address] [place] [address], [place] [address] 22 Sep, 2014 [facility] [address] [id number] [address] [place] [address], [place] [address] 21 Sep, 2014 [facility] [address] [id number] [address] [place] [address], [place] [address] 21 Sep, 2014 [facility] [address] [id number] [address] [place] [address], [place] [address] 15 Sep, 2014 [facility] [address] [id number] [address] [place] [address], [place] [address] 11 Sep, 2014 [facility] [address] [id number] [address] [place] [address], [place] [address] 09 Sep, 2014 [facility] [address] [id number] [address] [place] [address], [place] [address] 08 Sep, 2014 [facility] [address] [id number] [address] [place] [address], [place] [address] 03 Sep, 2014 [facility] [address] [id number] [address] [place] [address] [address] Apr, [facility] [address] [facility] [id number] [address] [place] [id number] Mar, [facility] [address] [facility] [id number] [address] [place] [id number] Mar, [facility] [address] [facility] [id number] [address] [place] [id number] Mar, [facility] [address] [facility] [id number] [address] [place] [id number] Mar, [facility] [address] [facility] [id number] [address] [place] [id number] Mar, [facility] [address] [facility] [id number] [address] [place] [id number] Mar, Diabetes mellitus 250.00 ; C OPD (chronic obstructive pulmonary disease) 496 ; Anxiety 300.00 and Arthritis 716.90 [facility] [address] [facility] [id number] [address] [place] [id number] Feb, [facility] [address] [facility] [id number] [address] [place] [id number] Feb, [facility] [address] [facility] [id number] [address] [place] [id number] Feb, [facility] [address] [facility] [id number] [address] [place] [address] Feb, [facility] [address] [facility] [id number] [address] [place] [id number] Jan, Seborrheic keratosis 702.19 and Nevus 216.9 [facility] [address] [facility] [id number] [address] [place] [id number] Jan, [facility] [address] [facility] [id number] [address] [place] [id number] Jan, Routine gynecological examin ation V72.31 ; Breast cancer screening V76.10 ; Hot flashes 627.2 ; Atypical nevi 216.9 and Constipation 564.00 [facility] [address] [id number] [address] [place] [address], [place] [address] Jan, [facility] [address] [id number] [address] [place] [address], [place] [address] December, [facility] [address] [id number] [address] [place] [address], [place] [address] December, [facility] [address] [id number] [address] [place] [address], [place] [address] Nov, [facility] [address] [id number] [address] [place] [address], [place] [address] Nov, [facility] [address] [id number] [address] [place] [address], [place] [address] Oct, [facility] [address] [id number] [address] [place] [address], [place] [address] 23 Oct, 2014 [facility] [address] [id number] [address] [place] [address], [place] [address] 18 Oct, 2014 [facility] [address] [id number] [address] [place] [address], [place] [address] 18 Oct, 2014 [facility] [address] [id number] [address] [place] [address], [place] [address] 17 Oct, 2014 [facility] [address] [id number] [address] [place] [address], [place] [address] 17 Oct, 2014 [facility] [address] [id number] [address] [place] [id number] 16 Oct, 2014 [facility] [address] [id number] [address] [place] [address], [place] [address] 16 Oct, 2014 [facility] [address] [id number] [address] [place] [address], [place] [address] 11 Oct, 2014 [facility] [address] [id number] [address] [place] [address], [place] [address] 11 Oct, 2014 [facility] [address] [id number] [address] [place] [address], [place] [address] Sep, 2014 [facility] [address] [id number] [address] [place] [address], [place] [address] Sep, 2014 [facility] [address] [id number] [address] [place] [address], [place] [address] 19 Sep, 2014 [facility] [address] [id number] [address] [place] [address], [place] [address] 18 Sep, 2014 [facility] [address] [id number] [address] [place] [address], [place] [address] Sep, 2014 [facility] [address] [id number] [address] [place] [address], [place] [address] Sep, 2014 [facility] [address] [id number] [address] [place] [address], [place] [address] Sep, 2014 [facility] [address] [id number] [address] [place] [address], [place] [address] Aug, [facility] [address] [id number] [address] [place] [address], [place] [address] Aug, [facility] [address] [id number] [address] [place] [address], [place] [address] Aug, [facility] [address] [id number] [address] [place] [address], [place] [address] Aug, [facility] [address] [id number] [address] [place] [address], [place] [address] Aug, [facility] [address] [id number] [address] [place] [address], [place] [address] Aug, [facility] [address] [id number] [address] [place] [address], [place] [address] Jul, [facility] [address] [id number] [address] [place] [address], [place] [address] Jul, [facility] [address] [id number] [address] [place] [address], [place] [address] Jul, [facility] [address] [id number] [address] [place] [address], [place] [address] Jul, [facility] [address] [id number] [address] [place] [address], [place] [address] Jul, [facility] [address] [id number] [address] [place] [address], [place] [address] Jun, [facility] [address] [id number] [address] [place] [address], [place] [address] Jun, [facility] [address] [id number] [address] [place] [address], [place] [address] Jun, [facility] [address] [id number] [address] [place] [address], [place] [address] Jun, [facility] [address] [id number] [address] [place] [address], [place] [address] Jun, [facility] [address] [id number] [address] [place] [address], [place] [address] Jun, [facility] [address] [id number] [address] [place] [address], [place] [address] May, [facility] [address] [id number] [address] [place] [address], [place] [address] May, [facility] [address] [id number] [address] [place] [address], [place] [address] May, [facility] [address] [id number] [address] [place] [id number] May, [facility] [address] [id number] [address] [place] [address], [place] [address] May, [facility] [address] [id number] [address] [place] [address], [place] [address] May, [facility] [address] [id number] [address] [place] [address], [place] [address] May, [facility] [address] [id number] [address] [place] [address], [place] [address] May, [facility] [address] [id number] [address] [place] [address], [place] [address] May, [facility] [address] [id number] [address] [place] [address], [place] [address] Apr, [facility] [address] [id number] [address] [place] [address], [place] [address] Apr, [facility] [address] [id number] [address] [place] [address], [place] [address] Apr, [facility] [address] [id number] [address] [place] [address], [place] [address] Apr, [facility] [address] [id number] [address] [place] [address], [place] [address] Mar, [facility] [address] [id number] [address] [place] [address], [place] [address] Mar, [facility] [address] [id number] [address] [place] [address], [place] [address] Mar, [facility] [address] [id number] [address] [place] [address], [place] [address] Mar, [facility] [address] [id number] [address] [place] [address], [place] [address] Mar, [facility] [address] [id number] [address] [place] [address], [place] [address] Mar, [facility] [address] [id number] [address] [place] [address], [place] [address] Feb, [facility] [address] [id number] [address] [place] [address], [place] [address] Feb, [facility] [address] [id number] [address] [place] [address], [place] [address] Feb, [facility] [address] [id number] [address] [place] [address], [place] [address] Feb, [facility] [address] [id number] [facility] [address] Feb, 2013 [facility] [address] [id number] [facility] [address] Feb, [facility] [address] [id number] [address] [place] [address], [place] [address] Feb, 2013 [facility] [address] [id number] [address] [place] [address], [place] [address] Feb, 2013 [facility] [address] [id number] [address] [place] [address], [place] [address] Feb, 2013 [facility] [address] [id number] [address] [place] [address], [place] [address] Feb, [facility] [address] [id number] [address] [place] [address], [place] [address] Feb, [facility] [address] [id number] [address] [place] [address], [place] [address] Feb, [facility] [address] [id number] [address] [place] [address], [place] [address] Jan, [facility] [address] [id number] [address] [place] [address], [place] [address] Jan, [facility] [address] [id number] [address] [place] [address], [place] [address] Jan, [facility] [address] [id number] [address] [place] [address], [place] [address] Jan, [facility] [address] [id number] [address] [place] [address], [place] [address] Jan, [facility] [address] [id number] [address] [place] [address], [place] [address] Jan, [facility] [address] [id number] [address] [place] [address], [place] [address] Jan, [facility] [address] [id number] [address] [place] [address], [place] [address] Jan, [facility] [address] [id number] [address] [place] [address], [place] [address] Jan, [facility] [address] [id number] [address] [place] [address], [place] [address] Jan, [facility] [address] [id number] [address] [place] [address], [place] [address] Jan, [facility] [address] [id number] [address] [place] [address], [place] [address] Jan, [facility] [address] [id number] [address] [place] [address], [place] [address] Jan, [facility] [address] [id number] [address] [place] [address], [place] [address] Jan, [facility] [address] [id number] [address] [place] [address], [place] [address] Jan, [facility] [address] [id number] [address] [place] [address], [place] [address] Jan, [facility] [address] [id number] [address] [place] [address], [place] [address] Jan, [facility] [address] [id number] [address] [place] [address], [place] [address] December, [facility] [address] [id number] [address] [place] [address], [place] [address] December, [facility] [address] [id number] [address] [place] [address], [place] [address] December, [facility] [address] [id number] [address] [place] [address], [place] [address] December, [facility] [address] [id number] [address] [place] [address], [place] [address] December, [facility] [address] [id number] [address] [place] [address], [place] [address] December, [facility] [address] [id number] [address] [place] [address], [place] [address] Nov, [facility] [place] [address] [id number] [address] [place] [address], [place] [address] Nov, [facility] [address] [id number] [address] [place] [address], [place] [address] Nov, [facility] [place] [address] [id number] [address] [place] [address], [place] [address] Nov, [facility] [address] [id number] [address] [place] [address], [place] [address] Nov, [facility] [address] [id number] [address] [place] [address], [place] [address] Nov, [facility] [address] [id number] [address] [place] [address], [place] [address] Nov, [facility] [place] [address] [id number] [address] [place] [address], [place] [address] Nov, [facility] [place] [address] [id number] [address] [place] [address], [place] [address] Nov, [facility] [address] [id number] [address] [place] [address], [place] [address] Nov, [facility] [address] [id number] [address] [place] [address], [place] [address] Nov, [facility] [address] [id number] [address] [place] [address], [place] [address] Nov, [facility] [address] [id number] [address] [place] [address], [place] [address] Nov, [facility] [address] [id number] [address] [place] [address], [place] [address] Nov, [facility] [address] [id number] [address] [place] [address], [place] [address] Nov, [facility] [address] [id number] [address] [place] [address], [place] [address] Nov, [facility] [address] [id number] [address] [place] [address], [place] [address] Oct, [facility] [address] [id number] [address] [place] [address], [place] [address] Oct, [facility] [address] [id number] [address] [place] [address], [place] [address] Oct, [facility] [address] [id number] [address] [place] [address], [place] [address] Oct, [facility] [address] [id number] [address] [place] [address], [place] [address] Oct, [facility] [address] [id number] [address] [place] [address], [place] [address] Oct, [facility] [address] [id number] [address] [place] [address], [place] [address] Oct, [facility] [address] [id number] [address] [place] [address], [place] [address] Oct, [facility] [address] [id number] [address] [place] [address], [place] [address] Sep, [facility] [address] [id number] [address] [place] [address], [place] [address] Sep, [facility] [address] [id number] [address] [place] [address], [place] [address] Sep, [facility] [address] [id number] [address] [place] [address], [place] [address] Sep, [facility] [address] [id number] [address] [place] [address], [place] [address] Sep, [facility] [address] [id number] [address] [place] [address], [place] [address] Sep, [facility] [address] [id number] [address] [place] [address], [place] [address] Aug, [facility] [address] [id number] [address] [place] [address], [place] [address] Aug, [facility] [address] [id number] [address] [place] [address], [place] [address] Aug, [facility] [address] [id number] [address] [place] [address], [place] [address] Aug, [facility] [address] [id number] [address] [place] [address], [place] [address] Aug, [facility] [address] [id number] [address] [place] [address], [place] [address] Aug, [facility] [address] [id number] [address] [place] [address], [place] [address] Aug, [facility] [address] [id number] [address] [place] [address], [place] [address] Aug, [facility] [place] [address] [id number] [address] [place] [address], [place] [address] Jul, [facility] [address] [id number] [address] [place] [address], [place] [address] Jul, [facility] [address] [id number] [address] [place] [address], [place] [address] Jul, [facility] [place] [address] [id number] [address] [place] [address], [place] [address] Jul, [facility] [address] [id number] [address] [place] [address], [place] [address] Jul, [facility] [address] [id number] [address] [place] [address], [place] [address] Jul, [facility] [address] [id number] [address] [place] [address], [place] [address] Jul, [facility] [address] [id number] [address] [place] [address], [place] [address] Jul, [facility] [address] [id number] [address] [place] [address], [place] [address] Jul, [facility] [address] [id number] [address] [place] [address], [place] [address] 14 Jun, 2013 [facility] [address] [id number] [address] [place] [address], [place] [address] 14 Jun, 2013 [facility] [address] [id number] [address] [place] [address], [place] [address] Jun, [facility] [address] [id number] [address] [place] [address], [place] [address] Jun, [facility] [address] [id number] [address] [place] [address], [place] [address] Jun, [facility] [address] [id number] [address] [place] [address], [place] [address] Jun, [facility] [address] [id number] [address] [place] [address], [place] [address] 31 May, 2013 [facility] [address] [id number] [address] [place] [address], [place] [address] 31 May, 2013 [facility] [address] [id number] [address] [place] [address], [place] [address] 17 May, 2013 [facility] [address] [id number] [address] [place] [address], [place] [address] 17 May, 2013 [facility] [address] [id number] [address] [place] [address], [place] [address] 14 May, 2013 [facility] [address] [id number] [address] [place] [address], [place] [address] 14 May, 2013 [facility] [address] [id number] [address] [place] [address], [place] [address] 10 May, 2013 [facility] [address] [id number] [address] [place] [address], [place] [address] 10 May, 2013 [facility] [address] [id number] [address] [place] [address] 07 May, 2013 [facility] [address] [id number] [address] [place] [address] 20 Sep, 2012 [facility] [address] [id number] [address] [place] [address], [place] [address] 19 Sep, 2012 [facility] [address] [id number] [address] [place] [address], [place] [address] 12 Apr, 2012 [facility] [address] [id number] [address] [place] [address], [place] [address] 24 Sep, 2011 [facility] [address] [id number] [address] [place] [address], [place] [address] 21 Sep, 2011 [facility] [address] [id number] [address] [place] [address], [place] [address] 21 Apr, 2011 [facility] [address] [id number] [address] [place] [address], [place] [address] 14 Apr, 2011 [facility] [address] [id number] [address] [place] [address], [place] [address] 10 Apr, 2011 [facility] [address] [id number] [address] [place] [address], [place] [address] 06 Apr, 2011 [facility] [address] [id number] [address] [place] [address], [place] [address] 04 Apr, 2011 [facility] [address] [id number] [address] [place] [address], [place] [address] 31 Mar, 2012 [facility] [address] [id number] [address] [place] [address], [place] [address] 28 Mar, 2012 [facility] [address] [id number] [address] [place] [address], [place] [address] 27 Mar, 2012 [facility] [address] [id number] [address] [place] [address], [place] [address] 10 Mar, 2012 [facility] [address] [id number] [address] [place] [address], [place] [address] 08 Mar, 2012 [facility] [address] [id number] [address] [place] [address], [place] [address] 03 Mar, 2012 [facility] [address] [id number] [address] [place] [address], [place] [address] Feb, [facility] [address] [id number] [address] [place] [address], [place] [address] Feb, [facility] [address] [id number] [address] [place] [address], [place] [address] Feb, [facility] [place] [address] [id number] [address] [place] [address], [place] [address] Jan, [facility] [address] [id number] [address] [place] [address], [place] [address] Jan, [facility] [address] [id number] [address] [place] [address], [place] [address] Jan, [facility] [address] [id number] [address] [place] [address], [place] [address] Jan, [facility] [place] [address] [id number] [address] [place] [address], [place] [address] Jan, [facility] [place] [address] [id number] [address] [place] [address], [place] [address] Jan, [facility] [place] [address] [id number] [address] [place] [address], [place] [address] Jan, [facility] [address] [id number] [address] [place] [address], [place] [address] Jan, [facility] [address] [id number] [address] [place] [address], [place] [address] December, [facility] [address] [id number] [address] [place] [address], [place] [address] December, [facility] [address] [id number] [address] [place] [address], [place] [address] December, [facility] [address] [id number] [address] [place] [address], [place] [address] December, [facility] [address] [id number] [address] [place] [address], [place] [address] December, [facility] [place] [address] [id number] [address] [place] [address], [place] [address] December, [facility] [address] [id number] [address] [place] [address], [place] [address] 13 Nov, 2011 [facility] [address] [id number] [address] [place] [address], [place] [address] 13 Nov, 2011 [facility] [address] [id number] [address] [place] [address], [place] [address] Nov, [facility] [address] [id number] [address] [place] [address], [place] [address] Nov, [facility] [address] [id number] [address] [place] [address], [place] [address] Nov, [facility] [address] [id number] [address] [place] [address], [place] [address] Oct, [facility] [address] [id number] [address] [place] [address], [place] [address] 17 Sep, 2011 [facility] [place] [address] [id number] [address] [place] [address], [place] [address] Aug, [facility] [address] [id number] [address] [place] [address], [place] [address] Aug, [facility] [place] [address] [id number] [address] [place] [address], [place] [address] Aug, [facility] [address] [id number] [address] [place] [address], [place] [address] Aug, [facility] [address] [id number] [address] [place] [address], [place] [address] Aug, [facility] [address] [id number] [address] [place] [address], [place] [address] Jul, [facility] [address] [id number] [address] [place] [address], [place] [address] Jul, [facility] [address] [id number] [address] [place] [address], [place] [address] Jun, [facility] [address] [id number] [address] [place] [address], [place] [address] Jun, [facility] [address] [id number] [address] [place] [address], [place] [address] Jun, [facility] [address] [id number] [address] [place] [address], [place] [address] May, [facility] [address] [id number] [address] [place] [address], [place] [address] May, [facility] [address] [id number] [address] [place] [address], [place] [address] 16 Oct, 2010 [facility] [address] [id number] [address] [place] [address], [place] [address] Oct, [facility] [address] [id number] [address] [place] [address], [place] [address] 29 Jul, 2010 [facility] [address] [id number] [address] [place] [address], [place] [address] 08 Jul, 2010 [facility] [address] [id number] [address] [place] [address], [place] [address] Jul, [facility] [address] [id number] [address] [place] [address], [place] [address] Jul, [facility] [address] [id number] [address] [place] [address], [place] [address] Jul, [facility] [address] [id number] [address] [place] [address], [place] [address] Jun, [facility] [address] [id number] [address] [place] [address], [place] [address] Jun, [facility] [address] [id number] [address] [place] [address], [place] [address] Jun, [facility] [address] [id number] [address] [place] [address], [place] [address] May, [facility] [address] [facility] [id number] [address] [place] [address] 16 Mar, 2010 IMMUNIZATIONS No Known Immunizations [...]
--- OUTSIDE RECORDS SUMMARY | 2019-11-28 22:55 | XMS REPORT ---
Author Author Caren LYLE Organization [facility] Address [address] [place] [address] Care Team Providers Care Clinical Specialist Medical Device Name Role Phone LAURIE LYLE Unavailable PROBLEMS Type Condition ICD9-CM Code SFP01-KD Code Onset Dates Condition S tatus SNOMED Code Problem COPD (chronic obstructive pulmonary disease) J44.9 Active 90529375 Problem Diabetes E11.9 Active 32232462 Problem Diabetic neuropathy E11.40 Active 452517681 Problem Arthritis M19.90 Active 0706729 ALLERGIES No Information ENCOUNTERS Encounter Location Date Diagnosis [facility] [address] [facility] [id number] [address] [place] [id number] December, [facility] [address] [id number] [address] [place] [phone] Aug, Arthritis M19.90 [facility] [address] [facility] [id number] [address] [place] [phone] Jul, [facility] [address] [facility] [id number] [address] [place] [phone] Jul, [facility] [address] [facility] [id number] [address] [place] [phone] Jul, [facility] [address] [id number] [address] [place] [address] Jul, [facility] [address] [facility] [id number] [address] [place] [address] Jul, Diabetes E11.9 ; Diabetic ne uropathy E11.40 ; Arthritis M19.90 and COPD (chronic obstructive pulmonary disease) J44.9 [facility] [address] [facility] [id number] [address] [place] [phone] Jul, [facility] [address] [id number] [address] [place] [address], [place] [address] 23 Jun, 2015 [facility] [address] [id number] [address] [place] [address], [place] [address] 23 Jun, 2015 [facility] [address] [id number] [address] [place] [address], [place] [address] 17 Jun, 2014 [facility] [address] [id number] [address] [place] [address], [place] [address] 10 Jun, 2014 [facility] [address] [id number] [address] [place] [address], [place] [address] 15 May, 2015 [facility] [address] [id number] [address] [place] [address], [place] [address] 13 May, 2015 [facility] [address] [id number] [address] [place] [address], [place] [address] 07 May, 2015 [facility] [address] [id number] [address] [place] [address], [place] [address] 22 Sep, 2014 [facility] [address] [id number] [address] [place] [address], [place] [address] 21 Sep, 2014 [facility] [address] [id number] [address] [place] [address], [place] [address] 21 Sep, 2014 [facility] [address] [id number] [address] [place] [address], [place] [address] 15 Sep, 2014 [facility] [address] [id number] [address] [place] [address], [place] [address] 11 Sep, 2014 [facility] [address] [id number] [address] [place] [address], [place] [address] 09 Sep, 2014 [facility] [address] [id number] [address] [place] [address], [place] [address] 08 Sep, 2014 [facility] [address] [id number] [address] [place] [address], [place] [address] 03 Sep, 2014 [facility] [address] [id number] [address] [place] [address] [address] Apr, [facility] [address] [facility] [id number] [address] [place] [phone] Mar, [facility] [address] [facility] [id number] [address] [place] [phone] Mar, [facility] [address] [facility] [id number] [address] [place] [phone] Mar, [facility] [address] [facility] [id number] [address] [place] [phone] Mar, [facility] [address] [facility] [id number] [address] [place] [address] Mar, [facility] [address] [facility] [id number] [address] [place] [address] Mar, Diabetes mellitus 250.00 ; C OPD (chronic obstructive pulmonary disease) 496 ; Anxiety 300.00 and Arthritis 716.90 [facility] [address] [facility] [id number] [address] [place] [address] Feb, [facility] [address] [facility] [id number] [address] [place] [phone] Feb, [facility] [address] [facility] [id number] [address] [place] [phone] Feb, [facility] [address] [facility] [id number] [address] [place] [address] Feb, [facility] [address] [facility] [id number] [address] [place] [phone] Jan, Seborrheic keratosis 702.19 and Nevus 216.9 [facility] [address] [facility] [id number] [address] [place] [address] Jan, [facility] [address] [facility] [id number] [address] [place] [address] Jan, Routine gynecological examin ation V72.31 ; Breast cancer screening V76.10 ; Hot flashes 627.2 ; Atypical nevi 216.9 and Constipation 564.00 [facility] [address] [id number] [address] [place] [address], [place] [address] Jan, [facility] [address] [id number] [address] [place] [address], [place] [address] December, [facility] [address] [id number] [address] [place] [address], [place] [address] December, [facility] [address] [id number] [address] [place] [address], [place] [address] Nov, [facility] [address] [id number] [address] [place] [address], [place] [address] Nov, [facility] [address] [id number] [address] [place] [address], [place] [address] Oct, [facility] [address] [id number] [address] [place] [address], [place] [address] 23 Oct, 2014 [facility] [address] [id number] [address] [place] [address], [place] [address] 18 Oct, 2014 [facility] [address] [id number] [address] [place] [address], [place] [address] 18 Oct, 2014 [facility] [address] [id number] [address] [place] [address], [place] [address] 17 Oct, 2014 [facility] [address] [id number] [address] [place] [address], [place] [address] 17 Oct, 2014 [facility] [address] [id number] [address] [place] [phone] 16 Oct, 2014 [facility] [address] [id number] [address] [place] [address], [place] [address] 16 Oct, 2014 [facility] [address] [id number] [address] [place] [address], [place] [address] 11 Oct, 2014 [facility] [address] [id number] [address] [place] [address], [place] [address] 11 Oct, 2014 [facility] [address] [id number] [address] [place] [address], [place] [address] Sep, 2014 [facility] [address] [id number] [address] [place] [address], [place] [address] Sep, 2014 [facility] [address] [id number] [address] [place] [address], [place] [address] 19 Sep, 2014 [facility] [address] [id number] [address] [place] [address], [place] [address] 18 Sep, 2014 [facility] [address] [id number] [address] [place] [address], [place] [address] Sep, 2014 [facility] [address] [id number] [address] [place] [address], [place] [address] Sep, 2014 [facility] [address] [id number] [address] [place] [address], [place] [address] Sep, 2014 [facility] [address] [id number] [address] [place] [address], [place] [address] Aug, [facility] [address] [id number] [address] [place] [address], [place] [address] Aug, [facility] [address] [id number] [address] [place] [address], [place] [address] Aug, [facility] [address] [id number] [address] [place] [address], [place] [address] Aug, [facility] [address] [id number] [address] [place] [address], [place] [address] Aug, [facility] [address] [id number] [address] [place] [address], [place] [address] Aug, [facility] [address] [id number] [address] [place] [address], [place] [address] Jul, [facility] [address] [id number] [address] [place] [address], [place] [address] Jul, [facility] [address] [id number] [address] [place] [address], [place] [address] Jul, [facility] [address] [id number] [address] [place] [address], [place] [address] Jul, [facility] [address] [id number] [address] [place] [address], [place] [address] Jul, [facility] [address] [id number] [address] [place] [address], [place] [address] Jun, [facility] [address] [id number] [address] [place] [address], [place] [address] Jun, [facility] [address] [id number] [address] [place] [address], [place] [address] Jun, [facility] [address] [id number] [address] [place] [address], [place] [address] Jun, [facility] [address] [id number] [address] [place] [address], [place] [address] Jun, [facility] [address] [id number] [address] [place] [address], [place] [address] Jun, [facility] [address] [id number] [address] [place] [address], [place] [address] May, [facility] [address] [id number] [address] [place] [address], [place] [address] May, [facility] [address] [id number] [address] [place] [address], [place] [address] May, [facility] [address] [id number] [address] [place] [phone] May, [facility] [address] [id number] [address] [place] [address], [place] [address] May, [facility] [address] [id number] [address] [place] [address], [place] [address] May, [facility] [address] [id number] [address] [place] [address], [place] [address] May, [facility] [address] [id number] [address] [place] [address], [place] [address] May, [facility] [address] [id number] [address] [place] [address], [place] [address] May, [facility] [address] [id number] [address] [place] [address], [place] [address] Apr, [facility] [address] [id number] [address] [place] [address], [place] [address] Apr, [facility] [address] [id number] [address] [place] [address], [place] [address] Apr, [facility] [address] [id number] [address] [place] [address], [place] [address] Apr, [facility] [address] [id number] [address] [place] [address], [place] [address] Mar, [facility] [address] [id number] [address] [place] [address], [place] [address] Mar, [facility] [address] [id number] [address] [place] [address], [place] [address] Mar, [facility] [address] [id number] [address] [place] [address], [place] [address] Mar, [facility] [address] [id number] [address] [place] [address], [place] [address] Mar, [facility] [address] [id number] [address] [place] [address], [place] [address] Mar, [facility] [address] [id number] [address] [place] [address], [place] [address] Feb, [facility] [address] [id number] [address] [place] [address], [place] [address] Feb, [facility] [address] [id number] [address] [place] [address], [place] [address] Feb, [facility] [address] [id number] [address] [place] [address], [place] [address] Feb, [facility] [address] [id number] [facility] [address] Feb, 2013 [facility] [address] [id number] [facility] [address] Feb, [facility] [address] [id number] [address] [place] [address], [place] [address] Feb, 2013 [facility] [address] [id number] [address] [place] [address], [place] [address] Feb, 2013 [facility] [address] [id number] [address] [place] [address], [place] [address] Feb, 2013 [facility] [address] [id number] [address] [place] [address], [place] [address] Feb, [facility] [address] [id number] [address] [place] [address], [place] [address] Feb, [facility] [address] [id number] [address] [place] [address], [place] [address] Feb, [facility] [address] [id number] [address] [place] [address], [place] [address] Jan, [facility] [address] [id number] [address] [place] [address], [place] [address] Jan, [facility] [address] [id number] [address] [place] [address], [place] [address] Jan, [facility] [address] [id number] [address] [place] [address], [place] [address] Jan, [facility] [address] [id number] [address] [place] [address], [place] [address] Jan, [facility] [address] [id number] [address] [place] [address], [place] [address] Jan, [facility] [address] [id number] [address] [place] [address], [place] [address] Jan, [facility] [address] [id number] [address] [place] [address], [place] [address] Jan, [facility] [address] [id number] [address] [place] [address], [place] [address] Jan, [facility] [address] [id number] [address] [place] [address], [place] [address] Jan, [facility] [address] [id number] [address] [place] [address], [place] [address] Jan, [facility] [address] [id number] [address] [place] [address], [place] [address] Jan, [facility] [address] [id number] [address] [place] [address], [place] [address] Jan, [facility] [address] [id number] [address] [place] [address], [place] [address] Jan, [facility] [address] [id number] [address] [place] [address], [place] [address] Jan, [facility] [address] [id number] [address] [place] [address], [place] [address] Jan, [facility] [address] [id number] [address] [place] [address], [place] [address] Jan, [facility] [address] [id number] [address] [place] [address], [place] [address] December, [facility] [address] [id number] [address] [place] [address], [place] [address] December, [facility] [address] [id number] [address] [place] [address], [place] [address] December, [facility] [address] [id number] [address] [place] [address], [place] [address] December, [facility] [address] [id number] [address] [place] [address], [place] [address] December, [facility] [address] [id number] [address] [place] [address], [place] [address] December, [facility] [address] [id number] [address] [place] [address], [place] [address] Nov, [facility] [address] [id number] [address] [place] [address], [place] [address] Nov, [facility] [address] [id number] [address] [place] [address], [place] [address] Nov, [facility] [address] [id number] [address] [place] [address], [place] [address] Nov, [facility] [address] [id number] [address] [place] [address], [place] [address] Nov, [facility] [address] [id number] [address] [place] [address], [place] [address] Nov, [facility] [address] [id number] [address] [place] [address], [place] [address] Nov, [facility] [address] [id number] [address] [place] [address], [place] [address] Nov, [facility] [address] [id number] [address] [place] [address], [place] [address] Nov, [facility] [address] [id number] [address] [place] [address], [place] [address] Nov, [facility] [address] [id number] [address] [place] [address], [place] [address] Nov, [facility] [address] [id number] [address] [place] [address], [place] [address] Nov, [facility] [address] [id number] [address] [place] [address], [place] [address] Nov, [facility] [address] [id number] [address] [place] [address], [place] [address] Nov, [facility] [address] [id number] [address] [place] [address], [place] [address] Nov, [facility] [address] [id number] [address] [place] [address], [place] [address] Nov, [facility] [address] [id number] [address] [place] [address], [place] [address] Oct, [facility] [address] [id number] [address] [place] [address], [place] [address] Oct, [facility] [address] [id number] [address] [place] [address], [place] [address] Oct, [facility] [address] [id number] [address] [place] [address], [place] [address] Oct, [facility] [address] [id number] [address] [place] [address], [place] [address] Oct, [facility] [address] [id number] [address] [place] [address], [place] [address] Oct, [facility] [address] [id number] [address] [place] [address], [place] [address] Oct, [facility] [address] [id number] [address] [place] [address], [place] [address] Oct, [facility] [address] [id number] [address] [place] [address], [place] [address] Sep, [facility] [address] [id number] [address] [place] [address], [place] [address] Sep, [facility] [address] [id number] [address] [place] [address], [place] [address] Sep, [facility] [address] [id number] [address] [place] [address], [place] [address] Sep, [facility] [address] [id number] [address] [place] [address], [place] [address] Sep, [facility] [address] [id number] [address] [place] [address], [place] [address] Sep, [facility] [address] [id number] [address] [place] [address], [place] [address] Aug, [facility] [address] [id number] [address] [place] [address], [place] [address] Aug, [facility] [address] [id number] [address] [place] [address], [place] [address] Aug, [facility] [address] [id number] [address] [place] [address], [place] [address] Aug, [facility] [address] [id number] [address] [place] [address], [place] [address] Aug, [facility] [address] [id number] [address] [place] [address], [place] [address] Aug, [facility] [address] [id number] [address] [place] [address], [place] [address] Aug, [facility] [address] [id number] [address] [place] [address], [place] [address] Aug, [facility] [address] [id number] [address] [place] [address], [place] [address] Jul, [facility] [address] [id number] [address] [place] [address], [place] [address] Jul, [facility] [address] [id number] [address] [place] [address], [place] [address] Jul, [facility] [address] [id number] [address] [place] [address], [place] [address] Jul, [facility] [address] [id number] [address] [place] [address], [place] [address] Jul, [facility] [address] [id number] [address] [place] [address], [place] [address] Jul, [facility] [address] [id number] [address] [place] [address], [place] [address] Jul, [facility] [address] [id number] [address] [place] [address], [place] [address] Jul, [facility] [address] [id number] [address] [place] [address], [place] [address] Jul, [facility] [address] [id number] [address] [place] [address], [place] [address] 14 Jun, 2013 [facility] [address] [id number] [address] [place] [address], [place] [address] 14 Jun, 2013 [facility] [address] [id number] [address] [place] [address], [place] [address] Jun, [facility] [address] [id number] [address] [place] [address], [place] [address] Jun, [facility] [address] [id number] [address] [place] [address], [place] [address] Jun, [facility] [address] [id number] [address] [place] [address], [place] [address] Jun, [facility] [address] [id number] [address] [place] [address], [place] [address] 31 May, 2013 [facility] [address] [id number] [address] [place] [address], [place] [address] 31 May, 2013 [facility] [address] [id number] [address] [place] [address], [place] [address] 17 May, 2013 [facility] [address] [id number] [address] [place] [address], [place] [address] 17 May, 2013 [facility] [address] [id number] [address] [place] [address], [place] [address] 14 May, 2013 [facility] [address] [id number] [address] [place] [address], [place] [address] 14 May, 2013 [facility] [address] [id number] [address] [place] [address], [place] [address] 10 May, 2013 [facility] [address] [id number] [address] [place] [address], [place] [address] 10 May, 2013 [facility] [address] [id number] [address] [place] [id number] 07 May, 2013 [facility] [address] [id number] [address] [place] [id number] 20 Sep, 2012 [facility] [address] [id number] [address] [place] [address], [place] [address] 19 Sep, 2012 [facility] [address] [id number] [address] [place] [address], [place] [address] 12 Apr, 2012 [facility] [address] [id number] [address] [place] [address], [place] [address] 24 Sep, 2011 [facility] [address] [id number] [address] [place] [address], [place] [address] 21 Sep, 2011 [facility] [address] [id number] [address] [place] [address], [place] [address] 21 Apr, 2011 [facility] [address] [id number] [address] [place] [address], [place] [id number] 14 Apr, 2011 [facility] [address] [id number] [address] [place] [address], [place] [address] 10 Apr, 2011 [facility] [address] [id number] [address] [place] [address], [place] [address] 06 Apr, 2011 [facility] [address] [id number] [address] [place] [address], [place] [id number] 04 Apr, 2011 [facility] [address] [id number] [address] [place] [address], [place] [address] 31 Mar, 2012 [facility] [address] [id number] [address] [place] [address], [place] [id number] 28 Mar, 2012 [facility] [address] [id number] [address] [place] [address], [place] [address] 27 Mar, 2012 [facility] [address] [id number] [address] [place] [address], [place] [address] 10 Mar, 2012 [facility] [address] [id number] [address] [place] [address], [place] [address] 08 Mar, 2012 [facility] [address] [id number] [address] [place] [address], [place] [id number] 03 Mar, 2012 [facility] [address] [id number] [address] [place] [address], [place] [id number] Feb, [facility] [address] [id number] [address] [place] [address], [place] [address] Feb, [facility] [address] [id number] [address] [place] [address], [place] [address] Feb, [facility] [address] [id number] [address] [place] [address], [place] [address] Jan, [facility] [address] [id number] [address] [place] [address], [place] [address] Jan, [facility] [address] [id number] [address] [place] [address], [place] [address] Jan, [facility] [address] [id number] [address] [place] [address], [place] [address] Jan, [facility] [address] [id number] [address] [place] [address], [place] [address] Jan, [facility] [address] [id number] [address] [place] [address], [place] [address] Jan, [facility] [address] [id number] [address] [place] [address], [place] [address] Jan, [facility] [address] [id number] [address] [place] [address], [place] [address] Jan, [facility] [address] [id number] [address] [place] [address], [place] [address] December, [facility] [address] [id number] [address] [place] [address], [place] [address] December, [facility] [address] [id number] [address] [place] [address], [place] [phone] December, [facility] [address] [id number] [address] [place] [address], [place] [address] December, [facility] [address] [id number] [address] [place] [address], [place] [address] December, [facility] [address] [id number] [address] [place] [address], [place] [address] December, [facility] [address] [id number] [address] [place] [address], [place] [id number] 13 Nov, 2011 [facility] [address] [id number] [address] [place] [address], [place] [address] 13 Nov, 2011 [facility] [address] [id number] [address] [place] [address], [place] [address] Nov, [facility] [address] [id number] [address] [place] [address], [place] [address] Nov, [facility] [address] [id number] [address] [place] [address], [place] [phone] Nov, [facility] [address] [id number] [address] [place] [address], [place] [address] Oct, [facility] [address] [id number] [address] [place] [address], [place] [id number] 17 Sep, 2011 [facility] [address] [id number] [address] [place] [address], [place] [address] Aug, [facility] [address] [id number] [address] [place] [address], [place] [address] Aug, [facility] [address] [id number] [address] [place] [address], [place] [address] Aug, [facility] [address] [id number] [address] [place] [address], [place] [address] Aug, [facility] [address] [id number] [address] [place] [address], [place] [address] Aug, [facility] [address] [id number] [address] [place] [address], [place] [address] Jul, [facility] [address] [id number] [address] [place] [address], [place] [address] Jul, [facility] [address] [id number] [address] [place] [address], [place] [address] Jun, [facility] [address] [id number] [address] [place] [address], [place] [address] Jun, [facility] [address] [id number] [address] [place] [address], [place] [address] Jun, [facility] [address] [id number] [address] [place] [address], [place] [address] May, [facility] [address] [id number] [address] [place] [address], [place] [address] May, [facility] [address] [id number] [address] [place] [address], [place] [address] 16 Oct, 2010 [facility] [address] [id number] [address] [place] [address], [place] [address] Oct, [facility] [address] [id number] [address] [place] [address], [place] [address] 29 Jul, 2010 [facility] [address] [id number] [address] [place] [address], [place] [address] 08 Jul, 2010 [facility] [address] [id number] [address] [place] [address], [place] [address] Jul, [facility] [address] [id number] [address] [place] [address], [place] [address] Jul, [facility] [address] [id number] [address] [place] [address], [place] [phone] Jul, [facility] [address] [id number] [address] [place] [address], [place] [address] Jun, [facility] [address] [id number] [address] [place] [address], [place] [address] Jun, [facility] [address] [id number] [address] [place] [address], [place] [address] Jun, [facility] [address] [id number] [address] [place] [address], [place] [address] May, [facility] [address] [facility] [id number] [address] [place] [address] 16 Mar, 2010 IMMUNIZATIONS No Known Immunizations [...]
--- OUTSIDE RECORDS SUMMARY | 2019-11-28 22:55 | XMS REPORT ---
Author Author Caren Barba Doctor Organization [facility] Address Unknown Phone Unavailable Care Team Providers Care Gripper Installer Name Role Phone Migration, Doctor Unavailable Unavailable PROBLEMS Type Condition ICD9-CM Code VUS98-LU Code Onset Dates Condition S tatus SNOMED Code Problem COPD (chronic obstructive pulmonary disease) J44.9 Active 89287123 Problem Diabetes E11.9 Active 31162963 Problem Diabetic neuropathy E11.40 Active 798374637 Problem Arthritis M19.90 Active 5308598 ALLERGIES Substance Reaction Event Type Date Status Amlodipine cough Drug Allergy Nov, Active Lisinopril Hctz 20/25 Tablet Unknown Non Drug Allergy Nov, Active Trajenta Unknown Non Drug Allergy Nov, Active Metformin edema Drug Allergy Nov, Active ENCOUNTERS Encounter Location Date Diagnosis [facility] [address] [id number] [address] [place] [address] December, [facility] [address] [id number] [address] [place] [address] Aug, Arthritis M19.90 [facility] [address] [id number] [place] [address] Jul, [facility] [id number] [place] [address] Jul, [facility] [address] [id number] [address] [place] [address] Jul, [facility] [address] [id number] [address] [place] [address] Jul, [facility] [address] [id number] [address] [place] [address] Jul, Diabetes E11.9 ; Diabetic ne uropathy E11.40 ; Arthritis M19.90 and COPD (chronic obstructive pulmonary disease) J44.9 [facility] [address] [id number] [address] [place] [address], [place] [address] 14 Jul, 2015 [facility] [address] [id number] [address] [place] [address], [place] [address] 23 Jun, 2015 [facility] [address] [id number] [address] [place] [address], [place] [address] 23 Jun, 2015 [facility] [address] [id number] [address] [place] [address], [place] [address] 17 Jun, 2015 [facility] [address] [id number] [address] [place] [address], [place] [address] 10 Jun, 2015 [facility] [address] [id number] [address] [place] [address], [place] [address] 15 May, 2015 [facility] [address] [id number] [address] [place] [address], [place] [address] 13 May, 2015 [facility] [address] [id number] [address] [place] [address], [place] [address] 07 May, 2015 [facility] [address] [id number] [address] [place] [address], [place] [address] 22 Apr, 2014 [facility] [address] [id number] [address] [place] [address], [place] [address] 21 Sep, 2014 [facility] [address] [id number] [address] [place] [address], [place] [address] 21 Sep, 2014 [facility] [address] [id number] [address] [place] [address], [place] [address] 15 Sep, 2014 [facility] [address] [id number] [address] [place] [address], [place] [address] 11 Sep, 2014 [facility] [address] [id number] [address] [place] [address], [place] [address] 09 Sep, 2014 [facility] [address] [id number] [address] [place] [address], [place] [address] 08 Sep, 2014 [facility] [address] [id number] [address] [place] [address], [place] [address] Apr, [facility] [address] [id number] [address] [place] [address] Apr, [facility] [address] [id number] [address] [place] [address] Mar, [facility] [address] [id number] [address] [place] [address] Mar, [facility] [address] [id number] [address] [place] [address] Mar, [facility] [address] [id number] [address] [place] [address] Mar, [facility] [address] [id number] [address] [place] [address] Mar, [facility] [address] [facility] [id number] [address] [place] [address] Mar, Diabetes mellitus 250.00 ; C OPD (chronic obstructive pulmonary disease) 496 ; Anxiety 300.00 and Arthritis 716.90 [facility] [address] [id number] [address] [place] [address] Feb, [facility] [address] [id number] [address] [place] [address] Feb, [facility] [address] [facility] [id number] [address] [place] [address] Feb, [facility] [address] [id number] [address] [place] [address] Feb, [facility] [address] [id number] [address] [place] [address] Jan, Seborrheic keratosis 702.19 and Nevus 216.9 [facility] [address] [id number] [address] [place] [address] Jan, [facility] [address] [facility] [id number] [address] [place] [address] Jan, Routine gynecological examin ation V72.31 ; Breast cancer screening V76.10 ; Hot flashes 627.2 ; Atypical nevi 216.9 and Constipation 564.00 [facility] [address] [id number] [address] [place] [address] Jan, [facility] [address] [id number] [address] [place] [address] December, [facility] [address] [id number] [address] [place] [address] December, [facility] [address] [id number] [address] [place] [address] Nov, [facility] [address] [id number] [address] [place] [address] Nov, [facility] [address] [id number] [address] [place] [address] Oct, [facility] [address] [id number] [address] [place] [address] 23 Oct, 2014 [facility] [address] [id number] [address] [place] [address] 18 Oct, 2014 [facility] [address] [id number] [address] [place] [address] 18 Oct, 2014 [facility] [address] [id number] [address] [place] [address] 17 Oct, 2014 [facility] [address] [id number] [address] [place] [address] 17 Oct, 2014 [facility] [address] [id number] [address] [place] [address] 16 Oct, 2014 [facility] [address] [id number] [address] [place] [address] 16 Oct, 2014 [facility] [address] [id number] [address] [place] [address] 11 Oct, 2014 [facility] [address] [id number] [address] [place] [address] Oct, [facility] [address] [id number] [address] [place] [address], [place] [address] Sep, [facility] [address] [id number] [address] [place] [address], [place] [address] Sep, [facility] [address] [id number] [address] [place] [address], [place] [address] Sep, [facility] [address] [id number] [address] [place] [address], [place] [address] Sep, [facility] [address] [id number] [address] [place] [address], [place] [address] Sep, [facility] [address] [id number] [address] [place] [address], [place] [address] Sep, [facility] [address] [id number] [address] [place] [address], [place] [address] Sep, [facility] [address] [id number] [address] [place] [address], [place] [address] Aug, [facility] [address] [id number] [address] [place] [address], [place] [address] Aug, [facility] [address] [id number] [address] [place] [address] Aug, [facility] [address] [id number] [address] [place] [address], [place] [address] Aug, [facility] [address] [id number] [address] [place] [address] Aug, [facility] [address] [id number] [address] [place] [address], [place] [address] Aug, [facility] [address] [id number] [address] [place] [address], [place] [address] Jul, [facility] [address] [id number] [address] [place] [address], [place] [address] Jul, [facility] [address] [id number] [address] [place] [address], [place] [address] Jul, [facility] [address] [id number] [address] [place] [address], [place] [address] Jul, [facility] [address] [id number] [address] [place] [address], [place] [address] Jul, [facility] [address] [id number] [address] [place] [address], [place] [address] Jun, [facility] [address] [id number] [address] [place] [address], [place] [address] Jun, [facility] [address] [id number] [address] [place] [address], [place] [address] Jun, [facility] [address] [id number] [address] [place] [address], [place] [address] Jun, [facility] [address] [id number] [address] [place] [address], [place] [address] Jun, [facility] [address] [id number] [address] [place] [address], [place] [address] Jun, [facility] [address] [id number] [address] [place] [address], [place] [address] May, [facility] [address] [id number] [address] [place] [address], [place] [address] May, [facility] [address] [id number] [address] [place] [address], [place] [address] May, [facility] [address] [id number] [address] [place] [address], [place] [address] May, [facility] [address] [id number] [address] [place] [address], [place] [address] May, [facility] [address] [id number] [address] [place] [address], [place] [address] May, [facility] [address] [id number] [address] [place] [address], [place] [address] May, [facility] [address] [id number] [address] [place] [address], [place] [address] May, [facility] [address] [id number] [address] [place] [address], [place] [address] May, [facility] [address] [id number] [address] [place] [address], [place] [address] Apr, [facility] [address] [id number] [address] [place] [address], [place] [address] Apr, [facility] [address] [id number] [address] [place] [address], [place] [address] Apr, [facility] [address] [id number] [address] [place] [address], [place] [address] Apr, [facility] [address] [id number] [address] [place] [address], [place] [address] Mar, [facility] [address] [id number] [address] [place] [address], [place] [address] Mar, [facility] [address] [id number] [address] [place] [address], [place] [address] Mar, [facility] [address] [id number] [address] [place] [address], [place] [address] Mar, [facility] [address] [id number] [address] [place] [address], [place] [address] Mar, [facility] [address] [id number] [address] [place] [address], [place] [address] Mar, [facility] [address] [id number] [address] [place] [address], [place] [address] Feb, [facility] [address] [id number] [address] [place] [address], [place] [address] Feb, [facility] [address] [id number] [address] [place] [address], [place] [address] Feb, [facility] [address] [id number] [facility] [place] [address] Feb, 2013 [facility] [address] [id number] [address] [place] [address], [place] [address] Feb, 2013 [facility] [address] [id number] [address] [place] [address], [place] [address] Feb, [facility] [address] [id number] [address] [place] [address], [place] [address] Feb, 2013 [facility] [address] [id number] [address] [place] [address], [place] [address] Feb, 2013 [facility] [address] [id number] [address] [place] [address], [place] [address] Feb, [facility] [address] [id number] [address] [place] [address], [place] [address] Feb, 2013 [facility] [address] [id number] [address] [place] [address], [place] [address] Feb, 2013 [facility] [address] [id number] [address] [place] [address], [place] [address] Feb, [facility] [address] [id number] [address] [place] [address], [place] [address] Jan, [facility] [address] [id number] [address] [place] [address], [place] [address] Jan, [facility] [address] [id number] [address] [place] [address], [place] [address] Jan, [facility] [address] [id number] [address] [place] [address], [place] [address] Jan, [facility] [address] [id number] [address] [place] [address], [place] [address] Jan, [facility] [address] [id number] [address] [place] [address], [place] [address] Jan, [facility] [address] [id number] [address] [place] [address], [place] [address] Jan, [facility] [address] [id number] [facility] [place] [address] Jan, [facility] [address] [id number] [address] [place] [address], [place] [address] Jan, [facility] [address] [id number] [address] [place] [address], [place] [address] Jan, [facility] [address] [id number] [address] [place] [address], [place] [address] Jan, [facility] [address] [id number] [address] [place] [address], [place] [address] Jan, [facility] [address] [id number] [address] [place] [address], [place] [address] Jan, [facility] [address] [id number] [address] [place] [address], [place] [address] Jan, [facility] [address] [id number] [address] [place] [address], [place] [address] Jan, [facility] [address] [id number] [address] [place] [address], [place] [address] Jan, [facility] [address] [id number] [address] [place] [address], [place] [address] Jan, [facility] [address] [id number] [address] [place] [address], [place] [address] December, [facility] [address] [id number] [address] [place] [address], [place] [address] December, [facility] [address] [id number] [address] [place] [address], [place] [address] December, [facility] [address] [id number] [address] [place] [address], [place] [address] December, [facility] [address] [id number] [address] [place] [address], [place] [address] December, [facility] [address] [id number] [address] [place] [address], [place] [address] December, [facility] [address] [id number] [facility] [place] [address] Nov, [facility] [address] [id number] [address] [place] [address], [place] [address] Nov, [facility] [address] [id number] [address] [place] [address], [place] [address] Nov, [facility] [address] [id number] [address] [place] [address], [place] [address] Nov, [facility] [address] [id number] [address] [place] [address], [place] [address] Nov, [facility] [address] [id number] [address] [place] [address], [place] [address] Nov, [facility] [address] [id number] [address] [place] [address], [place] [address] Nov, [facility] [address] [id number] [address] [place] [address], [place] [address] Nov, [facility] [address] [id number] [address] [place] [address], [place] [address] Nov, [facility] [address] [id number] [address] [place] [address], [place] [address] Nov, [facility] [address] [id number] [address] [place] [address], [place] [address] Nov, [facility] [address] [id number] [address] [place] [address], [place] [address] Nov, [facility] [address] [id number] [address] [place] [address], [place] [address] Nov, [facility] [address] [id number] [address] [place] [address], [place] [address] Nov, [facility] [address] [id number] [address] [place] [address], [place] [address] Nov, [facility] [address] [id number] [facility] [place] [address] Nov, [facility] [address] [id number] [address] [place] [address], [place] [address] Oct, [facility] [address] [id number] [facility] [place] [address] Oct, [facility] [address] [id number] [address] [place] [address], [place] [address] Oct, [facility] [address] [id number] [address] [place] [address], [place] [address] Oct, [facility] [address] [id number] [address] [place] [address], [place] [address] Oct, [facility] [address] [id number] [address] [place] [address], [place] [address] Oct, [facility] [address] [id number] [address] [place] [address], [place] [address] Oct, [facility] [address] [id number] [address] [place] [address], [place] [address] Oct, [facility] [address] [id number] [address] [place] [address], [place] [address] Sep, [facility] [address] [id number] [address] [place] [address], [place] [address] Sep, [facility] [address] [id number] [address] [place] [address], [place] [address] Sep, [facility] [address] [id number] [address] [place] [address], [place] [address] Sep, [facility] [address] [id number] [address] [place] [address], [place] [address] Sep, [facility] [address] [id number] [address] [place] [address], [place] [address] Sep, [facility] [address] [id number] [address] [place] [address], [place] [address] Aug, [facility] [address] [id number] [address] [place] [address], [place] [address] Aug, [facility] [address] [id number] [address] [place] [address], [place] [address] Aug, [facility] [address] [id number] [address] [place] [address], [place] [address] Aug, [facility] [address] [id number] [address] [place] [address], [place] [address] Aug, [facility] [address] [id number] [address] [place] [address], [place] [address] Aug, [facility] [address] [id number] [address] [place] [address], [place] [address] Aug, [facility] [address] [id number] [address] [place] [address], [place] [address] Aug, [facility] [address] [id number] [address] [place] [address], [place] [address] Jul, [facility] [address] [id number] [address] [place] [address], [place] [address] Jul, [facility] [address] [id number] [address] [place] [address], [place] [address] Jul, [facility] [address] [id number] [address] [place] [address], [place] [address] Jul, [facility] [address] [id number] [address] [place] [address], [place] [address] Jul, [facility] [address] [id number] [address] [place] [address], [place] [address] Jul, [facility] [address] [id number] [address] [place] [address], [place] [address] Jul, [facility] [address] [id number] [address] [place] [address], [place] [address] Jul, [facility] [address] [id number] [address] [place] [address], [place] [address] 02 Jul, 2013 [facility] [address] [id number] [address] [place] [address], [place] [address] 14 Jun, 2013 [facility] [address] [id number] [address] [place] [address], [place] [address] 14 Jun, 2013 [facility] [address] [id number] [address] [place] [address], [place] [address] 13 Jun, 2013 [facility] [address] [id number] [address] [place] [address], [place] [address] 13 Jun, 2013 [facility] [address] [id number] [address] [place] [address], [place] [address] 07 Jun, 2013 [facility] [address] [id number] [address] [place] [address], [place] [address] 07 Jun, 2013 [facility] [address] [id number] [address] [place] [address], [place] [address] 31 May, 2013 [facility] [address] [id number] [address] [place] [address], [place] [address] 31 May, 2013 [facility] [address] [id number] [address] [place] [address], [place] [address] 17 May, 2013 [facility] [address] [id number] [address] [place] [address], [place] [address] 17 May, 2013 [facility] [address] [id number] [address] [place] [address], [place] [address] 14 May, 2013 [facility] [address] [id number] [address] [place] [address], [place] [address] 14 May, 2013 [facility] [address] [id number] [address] [place] [address], [place] [address] 10 May, 2013 [facility] [address] [id number] [address] [place] [address], [place] [address] 10 May, 2013 [facility] [address] [id number] [address] [place] [address], [place] [address] 07 May, 2013 [facility] [address] [id number] [facility] [place] [address] 20 Sep, 2012 [facility] [address] [id number] [address] [place] [address], [place] [address] 19 Sep, 2012 [facility] [address] [id number] [address] [place] [address], [place] [address] 12 Sep, 2012 [facility] [address] [id number] [address] [place] [address], [place] [address] 24 Sep, 2011 [facility] [address] [id number] [address] [place] [address], [place] [address] 21 Sep, 2011 [facility] [address] [id number] [address] [place] [address], [place] [address] 21 Apr, 2011 [facility] [address] [id number] [address] [place] [address], [place] [address] 14 Apr, 2011 [facility] [address] [id number] [address] [place] [address], [place] [address] 10 Apr, 2011 [facility] [address] [id number] [address] [place] [address], [place] [address] 06 Apr, 2011 [facility] [address] [id number] [address] [place] [address], [place] [address] 04 Apr, 2011 [facility] [address] [id number] [address] [place] [address], [place] [address] 31 Mar, 2011 [facility] [address] [id number] [address] [place] [address], [place] [address] 28 Mar, 2011 [facility] [address] [id number] [address] [place] [address], [place] [address] 27 Mar, 2011 [facility] [address] [id number] [address] [place] [address], [place] [address] 10 Mar, 2011 [facility] [address] [id number] [address] [place] [address], [place] [address] 08 Mar, 2011 [facility] [address] [id number] [address] [place] [address], [place] [address] Mar, [facility] [address] [id number] [address] [place] [address], [place] [address] Feb, [facility] [address] [id number] [address] [place] [address], [place] [address] Feb, [facility] [address] [id number] [address] [place] [address], [place] [address] Feb, [facility] [address] [id number] [address] [place] [address], [place] [address] Jan, [facility] [address] [id number] [address] [place] [address], [place] [address] Jan, [facility] [address] [id number] [address] [place] [address], [place] [address] Jan, [facility] [address] [id number] [address] [place] [address], [place] [address] Jan, [facility] [address] [id number] [address] [place] [address], [place] [address] Jan, [facility] [address] [id number] [address] [place] [address], [place] [address] Jan, [facility] [address] [id number] [address] [place] [address], [place] [address] Jan, [facility] [address] [id number] [address] [place] [address], [place] [address] Jan, [facility] [address] [id number] [address] [place] [address], [place] [address] December, [facility] [address] [id number] [address] [place] [address], [place] [address] December, [facility] [address] [id number] [address] [place] [address], [place] [address] December, [facility] [address] [id number] [address] [place] [address], [place] [address] December, [facility] [address] [id number] [address] [place] [address], [place] [address] December, [facility] [address] [id number] [address] [place] [address], [place] [address] December, [facility] [address] [id number] [address] [place] [address], [place] [address] 13 Nov, 2011 [facility] [address] [id number] [address] [place] [address], [place] [address] 13 Nov, 2011 [facility] [address] [id number] [address] [place] [address], [place] [address] 13 Nov, 2011 [facility] [address] [id number] [address] [place] [address], [place] [address] 13 Nov, 2011 [facility] [address] [id number] [address] [place] [address], [place] [address] 12 Nov, 2011 [facility] [address] [id number] [address] [place] [address], [place] [address] Oct, [facility] [address] [id number] [address] [place] [address], [place] [address] 17 Sep, 2011 [facility] [address] [id number] [address] [place] [address], [place] [address] Aug, [facility] [address] [id number] [address] [place] [address], [place] [address] Aug, [facility] [address] [id number] [address] [place] [address], [place] [address] Aug, [facility] [address] [id number] [address] [place] [address], [place] [address] Aug, [facility] [address] [id number] [address] [place] [address], [place] [address] Aug, [facility] [address] [id number] [address] [place] [address], [place] [address] Jul, [facility] [address] [id number] [address] [place] [address], [place] [address] 13 Jul, 2011 [facility] [address] [id number] [address] [place] [address], [place] [address] Jun, [facility] [address] [id number] [address] [place] [address], [place] [address] 04 Jun, 2011 [facility] [address] [id number] [address] [place] [address], [place] [address] Jun, [facility] [address] [id number] [address] [place] [address], [place] [address] May, [facility] [address] [id number] [address] [place] [address], [place] [address] May, [facility] [address] [id number] [address] [place] [address], [place] [address] 16 Oct, 2010 [facility] [address] [id number] [address] [place] [address], [place] [address] Oct, [facility] [address] [id number] [address] [place] [address], [place] [address] 29 Jul, 2010 [facility] [address] [id number] [address] [place] [address], [place] [address] 08 Jul, 2010 [facility] [address] [id number] [address] [place] [address], [place] [address] Jul, [facility] [address] [id number] [address] [place] [address], [place] [address] Jul, [facility] [address] [id number] [address] [place] [address], [place] [address] Jul, [facility] [address] [id number] [address] [place] [address], [place] [address] Jun, [facility] [address] [id number] [address] [place] [address], [place] [address] Jun, [facility] [address] [id number] [address] [place] [address], [place] [address] Jun, [facility] [address] [id number] [address] [address] 12 May, 2010 [facility] [address] [facility] [id number] [address] [place] [address] Mar, IMMUNIZATIONS No Known Immunizations SOCIAL HISTORY Never Assessed REASON FOR VISIT [facility] [place] [place] PLAN OF CARE VITAL SIGNS MEDICATIONS Medication Instructions Dosage Frequency Start Date End Date Duration S tatus citalopram 20 mg 1 tablet by Oral route 1 time per day 1 0 Jun, 2014 Active Neurontin 100 mg 1 capsule by Oral route 3 times per d ay PRN for pain Jun, Active Simvastatin 20 mg 1 tablet by Oral route 1 time per day Nov, Active Qvar 80 mcg/actuation inhale 2 puffs by inhalation rou te 2 times per day Apr, Active amitriptyline 25 mg take 1 tablet (25 mg) by ora l route once daily at bedtime Aug, Active Doxycycline Hyclate 100 mg 1 Tablet by O ral route 2 times per day for 7 day dc wednesdayNovember 05 Oct, Active PredniSONE 10 mg SI mg orally 2 times a day fo r 5 day(s) Aug, Active Ceftin 250 mg 1 tablet by Oral route 2 times per day f or 7 day(s) Apr, Active Duragesic 50 mcg/hr 1 PATCH by Topical r oute every 72 hours Must be seen for more refills Oct, Active Promethazine-Codeine 6.25-10 mg/5 mL 10 mL by Oral rou te every 4 hours Mar, Active PredniSONE 20 mg 2 tablet by Oral route 1 time per day for 4 days Sep, Active Omnicef 300 mg 2 capsule by Oral route 1 time per day for 7 day(s) Apr, Active Zithromax Z-Segundo 250 mg 2 tablet by Oral route 1 time per day for 1 days then take 1 tab daily on days 2-5 Sep, Active Breo Ellipta 100-25 mcg/dose 1 Inhalant by Inhalation route 1 time per day Jun, Active RESULTS No Results PROCEDURES No Known procedures [...]
--- OUTSIDE RECORDS SUMMARY | 2019-11-28 22:55 | XMS REPORT ---
Author Author Caren LYLE Organization [facility] Address [address] [place] [address] Care Team Providers Care Head Inspector And Center Marker Name Role Phone LAURIE LYLE Unavailable PROBLEMS Type Condition ICD9-CM Code CDC23-JR Code Onset Dates Condition S tatus SNOMED Code Problem COPD (chronic obstructive pulmonary disease) J44.9 Active 55673447 Problem Diabetes E11.9 Active 33499954 Problem Diabetic neuropathy E11.40 Active 792649437 Problem Arthritis M19.90 Active 4533713 ALLERGIES No Information ENCOUNTERS Encounter Location Date Diagnosis [facility] [address] [facility] [id number] [address] [place] [address] December, [facility] [address] [id number] [address] [place] [address] Aug, Arthritis M19.90 [facility] [address] [facility] [id number] [address] [place] [address] Jul, [facility] [address] [facility] [id number] [address] [place] [address] Jul, [facility] [address] [facility] [id number] [address] [place] [address] Jul, [facility] [address] [id number] [address] [place] [address] Jul, [facility] [address] [facility] [id number] [address] [place] [address] Jul, Diabetes E11.9 ; Diabetic ne uropathy E11.40 ; Arthritis M19.90 and COPD (chronic obstructive pulmonary disease) J44.9 [facility] [address] [facility] [id number] [address] [place] [address] Jul, [facility] [address] [id number] [address] [place] [address], [place] [address] 23 Jun, 2015 [facility] [address] [id number] [address] [place] [address], [place] [address] 23 Jun, 2015 [facility] [address] [id number] [address] [place] [address], [place] [address] 17 Jun, 2014 [facility] [address] [id number] [address] [place] [address], [place] [address] 10 Jun, 2014 [facility] [address] [id number] [address] [place] [address], [place] [address] 15 May, 2015 [facility] [address] [id number] [address] [place] [address], [place] [address] 13 May, 2015 [facility] [address] [id number] [address] [place] [address], [place] [address] 07 May, 2015 [facility] [address] [id number] [address] [place] [address], [place] [address] 22 Sep, 2014 [facility] [address] [id number] [address] [place] [address], [place] [address] 21 Sep, 2014 [facility] [address] [id number] [address] [place] [address], [place] [address] 21 Sep, 2014 [facility] [address] [id number] [address] [place] [address], [place] [address] 15 Sep, 2014 [facility] [address] [id number] [address] [place] [address], [place] [address] 11 Sep, 2014 [facility] [address] [id number] [address] [place] [address], [place] [address] 09 Sep, 2014 [facility] [address] [id number] [address] [place] [address], [place] [address] 08 Sep, 2014 [facility] [address] [id number] [address] [place] [address], [place] [address] 03 Sep, 2014 [facility] [address] [id number] [address] [place] [address] [address] Apr, [facility] [address] [facility] [id number] [address] [place] [address] Mar, [facility] [address] [facility] [id number] [address] [place] [address] Mar, [facility] [address] [facility] [id number] [address] [place] [address] Mar, [facility] [address] [facility] [id number] [address] [place] [address] Mar, [facility] [address] [facility] [id number] [address] [place] [address] Mar, [facility] [address] [facility] [id number] [address] [place] [address] Mar, Diabetes mellitus 250.00 ; C OPD (chronic obstructive pulmonary disease) 496 ; Anxiety 300.00 and Arthritis 716.90 [facility] [address] [facility] [id number] [address] [place] [address] Feb, [facility] [address] [facility] [id number] [address] [place] [address] Feb, [facility] [address] [facility] [id number] [address] [place] [address] Feb, [facility] [address] [facility] [id number] [address] [place] [address] Feb, [facility] [address] [facility] [id number] [address] [place] [address] Jan, Seborrheic keratosis 702.19 and Nevus 216.9 [facility] [address] [facility] [id number] [address] [place] [address] Jan, [facility] [address] [facility] [id number] [address] [place] [address] Jan, Routine gynecological examin ation V72.31 ; Breast cancer screening V76.10 ; Hot flashes 627.2 ; Atypical nevi 216.9 and Constipation 564.00 [facility] [address] [id number] [address] [place] [address], [place] [address] Jan, [facility] [address] [id number] [address] [place] [address], [place] [address] December, [facility] [address] [id number] [address] [place] [address], [place] [address] December, [facility] [address] [id number] [address] [place] [address], [place] [address] Nov, [facility] [address] [id number] [address] [place] [address], [place] [address] Nov, [facility] [address] [id number] [address] [place] [address], [place] [address] Oct, [facility] [address] [id number] [address] [place] [address], [place] [address] 23 Oct, 2014 [facility] [address] [id number] [address] [place] [address], [place] [address] 18 Oct, 2014 [facility] [address] [id number] [address] [place] [address], [place] [address] 18 Oct, 2014 [facility] [address] [id number] [address] [place] [address], [place] [address] 17 Oct, 2014 [facility] [address] [id number] [address] [place] [address], [place] [address] 17 Oct, 2014 [facility] [address] [id number] [address] [place] [address] 16 Oct, 2014 [facility] [address] [id number] [address] [place] [address], [place] [address] 16 Oct, 2014 [facility] [address] [id number] [address] [place] [address], [place] [address] 11 Oct, 2014 [facility] [address] [id number] [address] [place] [address], [place] [address] 11 Oct, 2014 [facility] [address] [id number] [address] [place] [address], [place] [address] Sep, 2014 [facility] [address] [id number] [address] [place] [address], [place] [address] Sep, 2014 [facility] [address] [id number] [address] [place] [address], [place] [address] 19 Sep, 2014 [facility] [address] [id number] [address] [place] [address], [place] [address] 18 Sep, 2014 [facility] [address] [id number] [address] [place] [address], [place] [address] Sep, 2014 [facility] [address] [id number] [address] [place] [address], [place] [address] Sep, 2014 [facility] [address] [id number] [address] [place] [address], [place] [address] Sep, 2014 [facility] [address] [id number] [address] [place] [address], [place] [address] Aug, [facility] [address] [id number] [address] [place] [address], [place] [address] Aug, [facility] [address] [id number] [address] [place] [address], [place] [address] Aug, [facility] [address] [id number] [address] [place] [address], [place] [address] Aug, [facility] [address] [id number] [address] [place] [address], [place] [address] Aug, [facility] [address] [id number] [address] [place] [address], [place] [address] Aug, [facility] [address] [id number] [address] [place] [address], [place] [address] Jul, [facility] [address] [id number] [address] [place] [address], [place] [address] Jul, [facility] [address] [id number] [address] [place] [address], [place] [address] Jul, [facility] [address] [id number] [address] [place] [address], [place] [address] Jul, [facility] [address] [id number] [address] [place] [address], [place] [address] Jul, [facility] [address] [id number] [address] [place] [address], [place] [address] Jun, [facility] [address] [id number] [address] [place] [address], [place] [address] Jun, [facility] [address] [id number] [address] [place] [address], [place] [address] Jun, [facility] [address] [id number] [address] [place] [address], [place] [address] Jun, [facility] [address] [id number] [address] [place] [address], [place] [address] Jun, [facility] [address] [id number] [address] [place] [address], [place] [address] Jun, [facility] [address] [id number] [address] [place] [address], [place] [address] May, [facility] [address] [id number] [address] [place] [address], [place] [address] May, [facility] [address] [id number] [address] [place] [address], [place] [address] May, [facility] [address] [id number] [address] [place] [address] May, [facility] [address] [id number] [address] [place] [address], [place] [address] May, [facility] [address] [id number] [address] [place] [address], [place] [address] May, [facility] [address] [id number] [address] [place] [address], [place] [address] May, [facility] [address] [id number] [address] [place] [address], [place] [address] May, [facility] [address] [id number] [address] [place] [address], [place] [address] May, [facility] [address] [id number] [address] [place] [address], [place] [address] Apr, [facility] [address] [id number] [address] [place] [address], [place] [address] Apr, [facility] [address] [id number] [address] [place] [address], [place] [address] Apr, [facility] [address] [id number] [address] [place] [address], [place] [address] Apr, [facility] [address] [id number] [address] [place] [address], [place] [address] Mar, [facility] [address] [id number] [address] [place] [address], [place] [address] Mar, [facility] [address] [id number] [address] [place] [address], [place] [address] Mar, [facility] [address] [id number] [address] [place] [address], [place] [address] Mar, [facility] [address] [id number] [address] [place] [address], [place] [address] Mar, [facility] [address] [id number] [address] [place] [address], [place] [address] Mar, [facility] [address] [id number] [address] [place] [address], [place] [address] Feb, [facility] [address] [id number] [address] [place] [address], [place] [address] Feb, [facility] [address] [id number] [address] [place] [address], [place] [address] Feb, [facility] [address] [id number] [address] [place] [address], [place] [address] Feb, [facility] [address] [id number] [facility] [place] [address] Feb, 2013 [facility] [address] [id number] [facility] [place] [address] Feb, [facility] [address] [id number] [address] [place] [address], [place] [address] Feb, 2013 [facility] [address] [id number] [address] [place] [address], [place] [address] Feb, 2013 [facility] [address] [id number] [address] [place] [address], [place] [address] Feb, 2013 [facility] [address] [id number] [address] [place] [address], [place] [address] Feb, [facility] [address] [id number] [address] [place] [address], [place] [address] Feb, [facility] [address] [id number] [address] [place] [address], [place] [address] Feb, [facility] [address] [id number] [address] [place] [address], [place] [address] Jan, [facility] [address] [id number] [address] [place] [address], [place] [address] Jan, [facility] [address] [id number] [address] [place] [address], [place] [address] Jan, [facility] [address] [id number] [address] [place] [address], [place] [address] Jan, [facility] [address] [id number] [address] [place] [address], [place] [address] Jan, [facility] [address] [id number] [address] [place] [address], [place] [address] Jan, [facility] [address] [id number] [address] [place] [address], [place] [address] Jan, [facility] [address] [id number] [address] [place] [address], [place] [address] Jan, [facility] [address] [id number] [address] [place] [address], [place] [address] Jan, [facility] [address] [id number] [address] [place] [address], [place] [address] Jan, [facility] [address] [id number] [address] [place] [address], [place] [address] Jan, [facility] [address] [id number] [address] [place] [address], [place] [address] Jan, [facility] [address] [id number] [address] [place] [address], [place] [address] Jan, [facility] [address] [id number] [address] [place] [address], [place] [address] Jan, [facility] [address] [id number] [address] [place] [address], [place] [address] Jan, [facility] [address] [id number] [address] [place] [address], [place] [address] Jan, [facility] [address] [id number] [address] [place] [address], [place] [address] Jan, [facility] [address] [id number] [address] [place] [address], [place] [address] December, [facility] [address] [id number] [address] [place] [address], [place] [address] December, [facility] [address] [id number] [address] [place] [address], [place] [address] December, [facility] [address] [id number] [address] [place] [address], [place] [address] December, [facility] [address] [id number] [address] [place] [address], [place] [address] December, [facility] [address] [id number] [address] [place] [address], [place] [address] December, [facility] [address] [id number] [address] [place] [address], [place] [address] Nov, [facility] [address] [id number] [address] [place] [address], [place] [address] Nov, [facility] [address] [id number] [address] [place] [address], [place] [address] Nov, [facility] [address] [id number] [address] [place] [address], [place] [address] Nov, [facility] [address] [id number] [address] [place] [address], [place] [address] Nov, [facility] [address] [id number] [address] [place] [address], [place] [address] Nov, [facility] [address] [id number] [address] [place] [address], [place] [address] Nov, [facility] [address] [id number] [address] [place] [address], [place] [address] Nov, [facility] [address] [id number] [address] [place] [address], [place] [address] Nov, [facility] [address] [id number] [address] [place] [address], [place] [address] Nov, [facility] [address] [id number] [address] [place] [address], [place] [address] Nov, [facility] [address] [id number] [address] [place] [address], [place] [address] Nov, [facility] [address] [id number] [address] [place] [address], [place] [address] Nov, [facility] [address] [id number] [address] [place] [address], [place] [address] Nov, [facility] [address] [id number] [address] [place] [address], [place] [address] Nov, [facility] [address] [id number] [address] [place] [address], [place] [address] Nov, [facility] [address] [id number] [address] [place] [address], [place] [address] Oct, [facility] [address] [id number] [address] [place] [address], [place] [address] Oct, [facility] [address] [id number] [address] [place] [address], [place] [address] Oct, [facility] [address] [id number] [address] [place] [address], [place] [address] Oct, [facility] [address] [id number] [address] [place] [address], [place] [address] Oct, [facility] [address] [id number] [address] [place] [address], [place] [address] Oct, [facility] [address] [id number] [address] [place] [address], [place] [address] Oct, [facility] [address] [id number] [address] [place] [address], [place] [address] Oct, [facility] [address] [id number] [address] [place] [address], [place] [address] Sep, [facility] [address] [id number] [address] [place] [address], [place] [address] Sep, [facility] [address] [id number] [address] [place] [address], [place] [address] Sep, [facility] [address] [id number] [address] [place] [address], [place] [address] Sep, [facility] [address] [id number] [address] [place] [address], [place] [address] Sep, [facility] [address] [id number] [address] [place] [address], [place] [address] Sep, [facility] [address] [id number] [address] [place] [address], [place] [address] Aug, [facility] [address] [id number] [address] [place] [address], [place] [address] Aug, [facility] [address] [id number] [address] [place] [address], [place] [address] Aug, [facility] [address] [id number] [address] [place] [address], [place] [address] Aug, [facility] [address] [id number] [address] [place] [address], [place] [address] Aug, [facility] [address] [id number] [address] [place] [address], [place] [address] Aug, [facility] [address] [id number] [address] [place] [address], [place] [address] Aug, [facility] [address] [id number] [address] [place] [address], [place] [address] Aug, [facility] [address] [id number] [address] [place] [address], [place] [address] Jul, [facility] [address] [id number] [address] [place] [address], [place] [address] Jul, [facility] [address] [id number] [address] [place] [address], [place] [address] Jul, [facility] [address] [id number] [address] [place] [address], [place] [address] Jul, [facility] [address] [id number] [address] [place] [address], [place] [address] Jul, [facility] [address] [id number] [address] [place] [address], [place] [address] Jul, [facility] [address] [id number] [address] [place] [address], [place] [address] Jul, [facility] [address] [id number] [address] [place] [address], [place] [address] Jul, [facility] [address] [id number] [address] [place] [address], [place] [address] Jul, [facility] [address] [id number] [address] [place] [address], [place] [address] 14 Jun, 2013 [facility] [address] [id number] [address] [place] [address], [place] [address] 14 Jun, 2013 [facility] [address] [id number] [address] [place] [address], [place] [address] Jun, [facility] [address] [id number] [address] [place] [address], [place] [address] Jun, [facility] [address] [id number] [address] [place] [address], [place] [address] Jun, [facility] [address] [id number] [address] [place] [address], [place] [address] Jun, [facility] [address] [id number] [address] [place] [address], [place] [address] 31 May, 2013 [facility] [address] [id number] [address] [place] [address], [place] [address] 31 May, 2013 [facility] [address] [id number] [address] [place] [address], [place] [address] 17 May, 2013 [facility] [address] [id number] [address] [place] [address], [place] [address] 17 May, 2013 [facility] [address] [id number] [address] [place] [address], [place] [address] 14 May, 2013 [facility] [address] [id number] [address] [place] [address], [place] [address] 14 May, 2013 [facility] [address] [id number] [address] [place] [address], [place] [address] 10 May, 2013 [facility] [address] [id number] [address] [place] [address], [place] [address] 10 May, 2013 [facility] [address] [id number] [address] [place] [address] 07 May, 2013 [facility] [address] [id number] [address] [place] [address] 20 Sep, 2012 [facility] [address] [id number] [address] [place] [address], [place] [address] 19 Sep, 2012 [facility] [address] [id number] [address] [place] [address], [place] [address] 12 Apr, 2012 [facility] [address] [id number] [address] [place] [address], [place] [address] 24 Sep, 2011 [facility] [address] [id number] [address] [place] [address], [place] [address] 21 Sep, 2011 [facility] [address] [id number] [address] [place] [address], [place] [address] 21 Apr, 2011 [facility] [address] [id number] [address] [place] [address], [place] [address] 14 Apr, 2011 [facility] [address] [id number] [address] [place] [address], [place] [address] 10 Apr, 2011 [facility] [address] [id number] [address] [place] [address], [place] [address] 06 Apr, 2011 [facility] [address] [id number] [address] [place] [address], [place] [address] 04 Apr, 2011 [facility] [address] [id number] [address] [place] [address], [place] [address] 31 Mar, 2012 [facility] [address] [id number] [address] [place] [address], [place] [address] 28 Mar, 2012 [facility] [address] [id number] [address] [place] [address], [place] [address] 27 Mar, 2012 [facility] [address] [id number] [address] [place] [address], [place] [address] 10 Mar, 2012 [facility] [address] [id number] [address] [place] [address], [place] [address] 08 Mar, 2012 [facility] [address] [id number] [address] [place] [address], [place] [address] 03 Mar, 2012 [facility] [address] [id number] [address] [place] [address], [place] [address] Feb, [facility] [address] [id number] [address] [place] [address], [place] [address] Feb, [facility] [address] [id number] [address] [place] [address], [place] [address] Feb, [facility] [address] [id number] [address] [place] [address], [place] [address] Jan, [facility] [address] [id number] [address] [place] [address], [place] [address] Jan, [facility] [address] [id number] [address] [place] [address], [place] [address] Jan, [facility] [address] [id number] [address] [place] [address], [place] [address] Jan, [facility] [address] [id number] [address] [place] [address], [place] [address] Jan, [facility] [address] [id number] [address] [place] [address], [place] [address] Jan, [facility] [address] [id number] [address] [place] [address], [place] [address] Jan, [facility] [address] [id number] [address] [place] [address], [place] [address] Jan, [facility] [address] [id number] [address] [place] [address], [place] [address] December, [facility] [address] [id number] [address] [place] [address], [place] [address] December, [facility] [address] [id number] [address] [place] [address], [place] [address] December, [facility] [address] [id number] [address] [place] [address], [place] [address] December, [facility] [address] [id number] [address] [place] [address], [place] [address] December, [facility] [address] [id number] [address] [place] [address], [place] [address] December, [facility] [address] [id number] [address] [place] [address], [place] [address] 13 Nov, 2011 [facility] [address] [id number] [address] [place] [address], [place] [address] 13 Nov, 2011 [facility] [address] [id number] [address] [place] [address], [place] [address] Nov, [facility] [address] [id number] [address] [place] [address], [place] [address] Nov, [facility] [address] [id number] [address] [place] [address], [place] [address] Nov, [facility] [address] [id number] [address] [place] [address], [place] [address] Oct, [facility] [address] [id number] [address] [place] [address], [place] [address] 17 Sep, 2011 [facility] [address] [id number] [address] [place] [address], [place] [address] Aug, [facility] [address] [id number] [address] [place] [address], [place] [address] Aug, [facility] [address] [id number] [address] [place] [address], [place] [address] Aug, [facility] [address] [id number] [address] [place] [address], [place] [address] Aug, [facility] [address] [id number] [address] [place] [address], [place] [address] Aug, [facility] [address] [id number] [address] [place] [address], [place] [address] Jul, [facility] [address] [id number] [address] [place] [address], [place] [address] Jul, [facility] [address] [id number] [address] [place] [address], [place] [address] Jun, [facility] [address] [id number] [address] [place] [address], [place] [address] Jun, [facility] [address] [id number] [address] [place] [address], [place] [address] Jun, [facility] [address] [id number] [address] [place] [address], [place] [address] May, [facility] [address] [id number] [address] [place] [address], [place] [address] May, [facility] [address] [id number] [address] [place] [address], [place] [address] 16 Oct, 2010 [facility] [address] [id number] [address] [place] [address], [place] [address] Oct, [facility] [address] [id number] [address] [place] [address], [place] [address] 29 Jul, 2010 [facility] [address] [id number] [address] [place] [address], [place] [address] 08 Jul, 2010 [facility] [address] [id number] [address] [place] [address], [place] [address] Jul, [facility] [address] [id number] [address] [place] [address], [place] [address] Jul, [facility] [address] [id number] [address] [place] [address], [place] [address] Jul, [facility] [address] [id number] [address] [place] [address], [place] [address] Jun, [facility] [address] [id number] [address] [place] [address], [place] [address] Jun, [facility] [address] [id number] [address] [place] [address], [place] [address] Jun, [facility] [address] [id number] [address] [place] [address], [place] [address] May, [facility] [address] [facility] [id number] [address] [place] [address] 16 Mar, 2010 IMMUNIZATIONS No Known Immunizations [...]
--- OUTSIDE RECORDS SUMMARY | 2019-11-28 22:55 | XMS REPORT ---
Author Author Caren Barba Doctor Organization [facility] Address Unknown Phone Unavailable Care Team Providers Care Product Manager Medical Device Name Role Phone Migration, Doctor Unavailable Unavailable PROBLEMS Type Condition ICD9-CM Code AEE90-CZ Code Onset Dates Condition S tatus SNOMED Code Problem COPD (chronic obstructive pulmonary disease) J44.9 Active 50905940 Problem Diabetes E11.9 Active 54097344 Problem Diabetic neuropathy E11.40 Active 127644762 Problem Arthritis M19.90 Active [id number] ALLERGIES No Information ENCOUNTERS Encounter Location Date Diagnosis [facility] [address] [facility] [id number] [address] [place] [id number] December, [facility] [address] [id number] [address] [place] [address] Aug, Arthritis M19.90 [facility] [address] [id number] [address] [place] [id number] Jul, [facility] [address] [id number] [address] [place] [phone] Jul, [facility] [address] [facility] [id number] [address] [place] [id number] Jul, [facility] [address] [id number] [address] [place] [id number] Jul, [facility] [address] [facility] [id number] [address] [place] [address] Jul, Diabetes E11.9 ; Diabetic ne uropathy E11.40 ; Arthritis M19.90 and COPD (chronic obstructive pulmonary disease) J44.9 [facility] [address] [id number] [address] [place] [id number] Jul, [facility] [address] [facility] [id number] [address] [place] [phone] Jun, [facility] [address] [id number] [address] [place] [address], [place] [address] Jun, [facility] [address] [id number] [address] [place] [address], [place] [address] 17 Jun, 2015 [facility] [address] [id number] [address] [place] [address], [place] [address] 10 Jun, 2015 [facility] [address] [id number] [address] [place] [address], [place] [address] 15 May, 2015 [facility] [address] [id number] [address] [place] [address], [place] [address] 13 May, 2015 [facility] [address] [id number] [address] [place] [address], [place] [address] 07 May, 2015 [facility] [address] [id number] [address] [place] [address], [place] [address] 22 Apr, 2014 [facility] [address] [id number] [address] [place] [address], [place] [address] 21 Sep, 2014 [facility] [address] [id number] [address] [place] [address], [place] [address] 21 Sep, 2014 [facility] [address] [id number] [address] [place] [id number] 15 Apr, 2014 [facility] [address] [id number] [address] [place] [id number] 11 Sep, 2014 [facility] [address] [id number] [address] [place] [id number] 09 Sep, 2014 [facility] [address] [id number] [address] [place] [id number] 08 Sep, 2014 [facility] [address] [id number] [address] [place] [id number] 03 Sep, 2014 [facility] [address] [id number] [address] [place] [id number] 02 Sep, 2014 [facility] [address] [id number] [address] [place] [phone] Mar, [facility] [address] [facility] [id number] [address] [place] [id number] Mar, [facility] [address] [facility] [id number] [address] [place] [id number] Mar, [facility] [address] [facility] [id number] [address] [place] [id number] Mar, [facility] [address] [facility] [id number] [address] [place] [address] Mar, [facility] [address] [facility] [id number] [address] [place] [address] Mar, Diabetes mellitus 250.00 ; C OPD (chronic obstructive pulmonary disease) 496 ; Anxiety 300.00 and Arthritis 716.90 [facility] [address] [facility] [id number] [address] [place] [id number] Feb, [facility] [address] [facility] [id number] [address] [place] [phone] Feb, [facility] [address] [facility] [id number] [address] [place] [phone] Feb, [facility] [address] [facility] [id number] [address] [place] [phone] Feb, [facility] [address] [facility] [id number] [address] [place] [id number] Jan, Seborrheic keratosis 702.19 and Nevus 216.9 [facility] [address] [facility] [id number] [address] [place] [phone] Jan, [facility] [address] [facility] [id number] [address] [place] [phone] Jan, Routine gynecological examin ation V72.31 ; Breast cancer screening V76.10 ; Hot flashes 627.2 ; Atypical nevi 216.9 and Constipation 564.00 [facility] [address] [facility] [id number] [address] [place] [phone] Jan, [facility] [address] [id number] [address] [place] [address], [place] [address] December, [facility] [address] [id number] [address] [place] [address], [place] [address] December, [facility] [address] [id number] [address] [place] [address], [place] [address] 14 Nov, 2014 [facility] [address] [id number] [address] [place] [address], [place] [address] Nov, [facility] [address] [id number] [address] [place] [address], [place] [address] 23 Oct, 2014 [facility] [address] [id number] [address] [place] [address], [place] [address] 23 Oct, 2014 [facility] [address] [id number] [address] [place] [address], [place] [address] 18 Oct, 2014 [facility] [address] [id number] [address] [place] [address], [place] [address] 18 Oct, 2014 [facility] [address] [id number] [address] [place] [address], [place] [address] 17 Oct, 2014 [facility] [address] [id number] [address] [place] [address], [place] [address] 17 Oct, 2014 [facility] [address] [id number] [address] [place] [address], [place] [address] 16 Oct, 2014 [facility] [address] [id number] [address] [place] [address], [place] [address] 16 Oct, 2014 [facility] [address] [id number] [address] [place] [address], [place] [address] 11 Oct, 2014 [facility] [address] [id number] [address] [place] [address], [place] [address] Oct, [facility] [address] [id number] [address] [place] [address], [place] [address] Sep, [facility] [address] [id number] [address] [place] [address], [place] [address] 27 Sep, 2014 [facility] [address] [id number] [address] [place] [address], [place] [address] Sep, 2014 [facility] [address] [id number] [address] [place] [address], [place] [address] Sep, 2014 [facility] [address] [id number] [address] [place] [address], [place] [address] Sep, 2014 [facility] [address] [id number] [address] [place] [address], [place] [address] Sep, [facility] [address] [id number] [address] [place] [address], [place] [address] Sep, [facility] [address] [id number] [address] [place] [address], [place] [address] Aug, [facility] [address] [id number] [address] [place] [address], [place] [address] Aug, [facility] [address] [id number] [address] [place] [address], [place] [address] Aug, [facility] [address] [id number] [address] [place] [address], [place] [address] Aug, [facility] [address] [id number] [address] [place] [address], [place] [address] Aug, [facility] [address] [id number] [address] [place] [address], [place] [address] Aug, [facility] [address] [id number] [address] [place] [address], [place] [address] Jul, [facility] [address] [id number] [address] [place] [address], [place] [address] Jul, [facility] [address] [id number] [address] [place] [address], [place] [address] Jul, [facility] [address] [id number] [address] [place] [address], [place] [address] Jul, [facility] [address] [id number] [address] [place] [address], [place] [address] Jul, [facility] [address] [id number] [address] [place] [address], [place] [address] Jun, [facility] [address] [id number] [address] [place] [address], [place] [address] Jun, [facility] [address] [id number] [address] [place] [address], [place] [address] Jun, [facility] [address] [id number] [address] [place] [address], [place] [address] Jun, [facility] [address] [id number] [address] [place] [address], [place] [address] Jun, [facility] [address] [id number] [address] [place] [address], [place] [address] Jun, [facility] [address] [id number] [address] [place] [address], [place] [address] May, [facility] [address] [id number] [address] [place] [address], [place] [address] May, [facility] [address] [id number] [address] [place] [address], [place] [address] May, [facility] [address] [id number] [address] [place] [address], [place] [address] May, [facility] [address] [id number] [address] [place] [phone] May, [facility] [address] [id number] [address] [place] [address], [place] [address] May, [facility] [address] [id number] [address] [place] [address], [place] [address] May, [facility] [address] [id number] [address] [place] [address], [place] [address] May, [facility] [address] [id number] [facility] [place] [address] May, [facility] [address] [id number] [facility] [place] [address] Apr, [facility] [address] [id number] [address] [place] [address], [place] [address] Apr, [facility] [address] [id number] [address] [place] [address], [place] [address] Apr, [facility] [address] [id number] [address] [place] [address], [place] [address] Apr, [facility] [address] [id number] [address] [place] [address], [place] [address] Mar, [facility] [address] [id number] [address] [place] [address], [place] [address] Mar, [facility] [address] [id number] [address] [place] [address], [place] [address] Mar, [facility] [address] [id number] [address] [place] [address], [place] [address] Mar, [facility] [address] [id number] [address] [place] [address], [place] [address] Mar, [facility] [address] [id number] [address] [place] [address], [place] [address] Mar, [facility] [address] [id number] [address] [place] [address], [place] [address] Feb, [facility] [address] [id number] [address] [place] [address], [place] [address] Feb, [facility] [address] [id number] [address] [place] [address], [place] [address] Feb, [facility] [address] [id number] [address] [place] [address], [place] [address] Feb, [facility] [address] [id number] [address] [place] [address], [place] [address] Feb, [facility] [address] [id number] [address] [place] [address], [place] [address] Feb, [facility] [address] [id number] [address] [place] [address], [place] [address] Feb, [facility] [address] [id number] [address] [place] [address], [place] [address] Feb, 2013 [facility] [address] [id number] [address] [place] [address], [place] [address] Feb, [facility] [address] [id number] [address] [place] [address], [place] [address] Feb, [facility] [address] [id number] [address] [place] [address], [place] [address] Feb, [facility] [address] [id number] [address] [place] [address], [place] [address] Feb, [facility] [address] [id number] [address] [place] [address], [place] [address] Jan, [facility] [address] [id number] [address] [place] [address], [place] [address] Jan, [facility] [address] [id number] [address] [place] [address], [place] [address] Jan, [facility] [address] [id number] [address] [place] [address], [place] [address] Jan, [facility] [address] [id number] [address] [place] [address], [place] [address] Jan, [facility] [address] [id number] [address] [place] [address], [place] [address] Jan, [facility] [address] [id number] [address] [place] [address], [place] [address] Jan, [facility] [address] [id number] [address] [place] [address], [place] [address] Jan, [facility] [address] [id number] [address] [place] [address], [place] [address] Jan, [facility] [address] [id number] [address] [place] [address], [place] [address] Jan, [facility] [address] [id number] [address] [place] [address], [place] [address] Jan, [facility] [address] [id number] [address] [place] [address], [place] [address] Jan, [facility] [address] [id number] [address] [place] [address], [place] [address] Jan, [facility] [address] [id number] [address] [place] [address], [place] [address] Jan, [facility] [address] [id number] [address] [place] [address], [place] [address] Jan, [facility] [address] [id number] [address] [place] [address], [place] [address] Jan, [facility] [address] [id number] [address] [place] [address], [place] [address] Jan, [facility] [address] [id number] [address] [place] [address], [place] [address] December, [facility] [address] [id number] [address] [place] [address], [place] [address] December, [facility] [address] [id number] [address] [place] [address], [place] [address] December, [facility] [address] [id number] [address] [place] [address], [place] [address] December, [facility] [address] [id number] [address] [place] [address], [place] [address] December, [facility] [address] [id number] [address] [place] [address], [place] [address] December, [facility] [address] [id number] [address] [place] [address], [place] [address] Nov, [facility] [address] [id number] [facility] [place] [address] Nov, [facility] [address] [id number] [address] [place] [address], [place] [address] Nov, [facility] [address] [id number] [address] [place] [address], [place] [address] Nov, [facility] [address] [id number] [address] [place] [address], [place] [address] Nov, [facility] [address] [id number] [address] [place] [address], [place] [address] Nov, [facility] [address] [id number] [address] [place] [address], [place] [address] Nov, [facility] [address] [id number] [address] [place] [address], [place] [address] Nov, [facility] [address] [id number] [address] [place] [address], [place] [address] Nov, [facility] [address] [id number] [address] [place] [address], [place] [address] Nov, [facility] [address] [id number] [address] [place] [address], [place] [address] Nov, [facility] [address] [id number] [address] [place] [address], [place] [address] Nov, [facility] [address] [id number] [address] [place] [address], [place] [address] Nov, [facility] [address] [id number] [address] [place] [address], [place] [address] Nov, [facility] [address] [id number] [address] [place] [address], [place] [address] Nov, [facility] [address] [id number] [address] [place] [address], [place] [address] Nov, [facility] [address] [id number] [address] [place] [address], [place] [address] Oct, [facility] [address] [id number] [facility] [place] [address] Oct, [facility] [address] [id number] [address] [place] [address], [place] [address] Oct, [facility] [address] [id number] [address] [place] [address], [place] [address] Oct, [facility] [address] [id number] [address] [place] [address], [place] [address] Oct, [facility] [address] [id number] [address] [place] [address], [place] [address] Oct, [facility] [address] [id number] [address] [place] [address], [place] [address] Oct, [facility] [address] [id number] [address] [place] [address], [place] [address] Oct, [facility] [address] [id number] [address] [place] [address], [place] [address] Sep, [facility] [address] [id number] [address] [place] [address], [place] [address] Sep, [facility] [address] [id number] [address] [place] [address], [place] [address] Sep, [facility] [address] [id number] [address] [place] [address], [place] [address] Sep, [facility] [address] [id number] [address] [place] [address], [place] [address] Sep, [facility] [address] [id number] [address] [place] [address], [place] [address] Sep, [facility] [address] [id number] [address] [place] [address], [place] [address] Aug, [facility] [address] [id number] [address] [place] [address], [place] [address] Aug, [facility] [address] [id number] [address] [place] [address], [place] [address] Aug, [facility] [address] [id number] [address] [place] [address], [place] [address] Aug, [facility] [address] [id number] [address] [place] [address], [place] [address] Aug, [facility] [address] [id number] [address] [place] [address], [place] [address] Aug, [facility] [address] [id number] [address] [place] [address], [place] [address] Aug, [facility] [address] [id number] [address] [place] [address], [place] [address] Aug, [facility] [address] [id number] [address] [place] [address], [place] [address] Jul, [facility] [address] [id number] [address] [place] [address], [place] [address] Jul, [facility] [address] [id number] [address] [place] [address], [place] [address] Jul, [facility] [address] [id number] [address] [place] [address], [place] [address] Jul, [facility] [address] [id number] [address] [place] [address], [place] [address] Jul, [facility] [address] [id number] [address] [place] [address], [place] [address] Jul, [facility] [address] [id number] [address] [place] [address], [place] [address] Jul, [facility] [address] [id number] [address] [place] [address], [place] [address] Jul, [facility] [address] [id number] [address] [place] [address], [place] [address] Jul, [facility] [address] [id number] [address] [place] [address], [place] [address] Jun, [facility] [address] [id number] [address] [place] [address], [place] [address] 14 Jun, 2013 [facility] [address] [id number] [address] [place] [address], [place] [address] 13 Jun, 2013 [facility] [address] [id number] [address] [place] [address], [place] [address] 13 Jun, 2013 [facility] [address] [id number] [address] [place] [address], [place] [address] 07 Jun, 2013 [facility] [address] [id number] [address] [place] [address], [place] [address] 07 Jun, 2013 [facility] [address] [id number] [address] [place] [address], [place] [address] 31 May, 2013 [facility] [address] [id number] [address] [place] [address], [place] [address] 31 May, 2013 [facility] [address] [id number] [address] [place] [id number] 17 May, 2013 [facility] [address] [id number] [address] [place] [address], [place] [address] 17 May, 2013 [facility] [address] [id number] [address] [place] [id number] 14 May, 2013 [facility] [address] [id number] [address] [place] [id number] 14 May, 2013 [facility] [address] [id number] [address] [place] [id number] 10 May, 2013 [facility] [address] [id number] [address] [place] [address], [place] [address] 10 May, 2013 [facility] [address] [id number] [address] [place] [id number] 07 May, 2013 [facility] [address] [id number] [address] [place] [address], [place] [address] 20 Apr, 2013 [facility] [address] [id number] [address] [place] [address], [place] [address] 19 Sep, 2012 [facility] [address] [id number] [address] [place] [address], [place] [address] 12 Sep, 2012 [facility] [address] [id number] [address] [place] [address], [place] [address] 24 Sep, 2011 [facility] [address] [id number] [address] [place] [address], [place] [address] 21 Sep, 2011 [facility] [address] [id number] [address] [place] [address], [place] [address] 21 Sep, 2011 [facility] [address] [id number] [address] [place] [address], [place] [address] 14 Apr, 2011 [facility] [address] [id number] [address] [place] [address], [place] [address] 10 Apr, 2011 [facility] [address] [id number] [address] [place] [address], [place] [address] 06 Apr, 2011 [facility] [address] [id number] [address] [place] [address], [place] [address] 04 Apr, 2011 [facility] [address] [id number] [address] [place] [address], [place] [address] 31 Mar, 2012 [facility] [address] [id number] [address] [place] [address], [place] [address] 28 Mar, 2012 [facility] [address] [id number] [address] [place] [address], [place] [address] 27 Mar, 2012 [facility] [address] [id number] [address] [place] [address], [place] [id number] 10 Mar, 2012 [facility] [address] [id number] [address] [place] [address], [place] [address] 08 Mar, 2012 [facility] [address] [id number] [address] [place] [address], [place] [address] 03 Mar, 2012 [facility] [address] [id number] [address] [place] [address], [place] [address] 20 Feb, 2012 [facility] [address] [id number] [address] [place] [address], [place] [address] 10 Feb, 2012 [facility] [address] [id number] [address] [place] [address], [place] [address] Feb, [facility] [address] [id number] [address] [place] [address], [place] [address] Jan, [facility] [address] [id number] [address] [place] [address], [place] [address] Jan, [facility] [address] [id number] [address] [place] [address], [place] [address] Jan, [facility] [address] [id number] [address] [place] [address], [place] [address] Jan, [facility] [address] [id number] [address] [place] [address], [place] [address] Jan, [facility] [address] [id number] [address] [place] [address], [place] [address] Jan, [facility] [address] [id number] [address] [place] [address], [place] [address] Jan, [facility] [address] [id number] [address] [place] [address], [place] [address] Jan, [facility] [address] [id number] [address] [place] [address], [place] [address] December, [facility] [address] [id number] [address] [place] [address], [place] [address] December, [facility] [address] [id number] [address] [place] [address], [place] [address] December, [facility] [address] [id number] [address] [place] [address], [place] [address] December, [facility] [address] [id number] [address] [place] [address], [place] [address] December, [facility] [address] [id number] [address] [place] [address], [place] [address] December, [facility] [address] [id number] [address] [place] [address], [place] [address] 13 Nov, 2011 [facility] [address] [id number] [address] [place] [address], [place] [address] 13 Nov, 2011 [facility] [address] [id number] [address] [place] [address], [place] [address] 13 Nov, 2011 [facility] [address] [id number] [address] [place] [address], [place] [address] 13 Nov, 2011 [facility] [address] [id number] [address] [place] [address], [place] [address] Nov, [facility] [address] [id number] [address] [place] [address], [place] [address] 15 Oct, 2011 [facility] [address] [id number] [address] [place] [address], [place] [address] 17 Sep, 2011 [facility] [address] [id number] [address] [place] [address], [place] [address] Aug, [facility] [address] [id number] [address] [place] [address], [place] [address] Aug, [facility] [address] [id number] [address] [place] [address], [place] [address] Aug, [facility] [address] [id number] [address] [place] [address], [place] [address] Aug, [facility] [address] [id number] [address] [place] [address], [place] [address] Aug, [facility] [address] [id number] [address] [place] [address], [place] [address] Jul, [facility] [address] [id number] [address] [place] [address], [place] [address] Jul, [facility] [address] [id number] [address] [place] [address], [place] [address] Jun, [facility] [address] [id number] [address] [place] [address], [place] [address] 04 Jun, 2011 [facility] [address] [id number] [address] [place] [address], [place] [address] Jun, [facility] [address] [id number] [address] [place] [address], [place] [address] 18 May, 2011 [facility] [address] [id number] [address] [place] [address], [place] [address] May, [facility] [address] [id number] [address] [place] [address], [place] [address] 16 Oct, 2010 [facility] [address] [id number] [address] [place] [address], [place] [address] Oct, [facility] [address] [id number] [address] [place] [address], [place] [address] Jul, [facility] [address] [id number] [address] [place] [address], [place] [address] 08 Jul, 2010 [facility] [address] [id number] [address] [place] [address], [place] [address] Jul, [facility] [address] [id number] [address] [place] [address], [place] [address] Jul, [facility] [address] [id number] [address] [place] [address], [place] [address] Jul, [facility] [address] [id number] [address] [place] [address], [place] [address] Jun, [facility] [address] [id number] [address] [place] [address], [place] [address] Jun, [facility] [address] [id number] [address] [place] [address], [place] [address] Jun, [facility] [address] [id number] [address] [place] [address], [place] [address] May, [facility] [address] [id number] [address] [place] [id number] 16 Mar, 2010 IMMUNIZATIONS No Known Immunizations SOCIAL HISTORY Never Assessed REASON FOR VISIT EMR-[facility] PLAN OF CARE VITAL SIGNS MEDICATIONS Unknown [...]
--- OUTSIDE RECORDS SUMMARY | 2019-11-28 22:56 | XMS REPORT ---
Author Author Caren Barba Doctor Organization [facility] Address Unknown Phone Unavailable Care Team Providers Care Clinical Systems Educator Name Role Phone Migration, Doctor Unavailable Unavailable PROBLEMS Type Condition ICD9-CM Code XNT32-LQ Code Onset Dates Condition S tatus SNOMED Code Problem COPD (chronic obstructive pulmonary disease) J44.9 Active 62254825 Problem Diabetes E11.9 Active 92948815 Problem Diabetic neuropathy E11.40 Active 532120264 Problem Arthritis M19.90 Active [id number] ALLERGIES No Information ENCOUNTERS Encounter Location Date Diagnosis [facility] [address] [id number] [address] [place] [address] December, [facility] [address] [id number] [address] [place] [address] Aug, Arthritis M19.90 [facility] [address] [id number] [address] [place] [address] Jul, [facility] [address] [id number] [address] [place] [address] Jul, [facility] [address] [facility] [id number] [address] [place] [address] Jul, [facility] [address] [id number] [address] [place] [address] Jul, [facility] [address] [id number] [address] [place] [address] Jul, Diabetes E11.9 ; Diabetic ne uropathy E11.40 ; Arthritis M19.90 and COPD (chronic obstructive pulmonary disease) J44.9 [facility] [address] [id number] [address] [place] [address] Jul, [facility] [address] [facility] [id number] [address] [place] [address] Jun, [facility] [address] [id number] [address] [place] [address], [place] [address] Jun, [facility] [address] [id number] [address] [place] [address], [place] [address] 17 Jun, 2015 [facility] [address] [id number] [address] [place] [address], [place] [address] 10 Jun, 2015 [facility] [address] [id number] [address] [place] [address], [place] [address] 15 May, 2015 [facility] [address] [id number] [address] [place] [address], [place] [address] 13 May, 2015 [facility] [address] [id number] [address] [place] [address], [place] [address] 07 May, 2015 [facility] [address] [id number] [address] [place] [address], [place] [address] 22 Apr, 2014 [facility] [address] [id number] [address] [place] [address], [place] [address] 21 Sep, 2014 [facility] [address] [id number] [address] [place] [address], [place] [address] 21 Sep, 2014 [facility] [address] [id number] [address] [place] [address] 15 Apr, 2014 [facility] [address] [id number] [address] [place] [address] 11 Sep, 2014 [facility] [address] [id number] [address] [place] [address] 09 Sep, 2014 [facility] [address] [id number] [address] [place] [address] 08 Sep, 2014 [facility] [address] [id number] [address] [place] [address] 03 Sep, 2014 [facility] [address] [id number] [address] [place] [address] 02 Sep, 2014 [facility] [address] [id number] [address] [place] [address] Mar, [facility] [address] [facility] [id number] [address] [place] [address] Mar, [facility] [address] [facility] [id number] [address] [place] [address] Mar, [facility] [address] [facility] [id number] [address] [place] [address] Mar, [facility] [address] [facility] [id number] [address] [place] [address] Mar, [facility] [address] [facility] [id number] [address] [place] [address] Mar, Diabetes mellitus 250.00 ; C OPD (chronic obstructive pulmonary disease) 496 ; Anxiety 300.00 and Arthritis 716.90 [facility] [address] [facility] [id number] [address] [place] [address] Feb, [facility] [address] [facility] [id number] [address] [place] [address] Feb, [facility] [address] [facility] [id number] [address] [place] [address] Feb, [facility] [address] [facility] [id number] [address] [place] [address] Feb, [facility] [address] [facility] [id number] [address] [place] [address] Jan, Seborrheic keratosis 702.19 and Nevus 216.9 [facility] [address] [facility] [id number] [address] [place] [address] Jan, [facility] [address] [facility] [id number] [address] [place] [address] Jan, Routine gynecological examin ation V72.31 ; Breast cancer screening V76.10 ; Hot flashes 627.2 ; Atypical nevi 216.9 and Constipation 564.00 [facility] [address] [facility] [id number] [address] [place] [address] Jan, [facility] [address] [id number] [address] [place] [address], [place] [address] December, [facility] [address] [id number] [address] [place] [address], [place] [address] December, [facility] [address] [id number] [address] [place] [address], [place] [address] 14 Nov, 2014 [facility] [address] [id number] [address] [place] [address], [place] [address] Nov, [facility] [address] [id number] [address] [place] [address], [place] [address] 23 Oct, 2014 [facility] [address] [id number] [address] [place] [address], [place] [address] 23 Oct, 2014 [facility] [address] [id number] [address] [place] [address], [place] [address] 18 Oct, 2014 [facility] [address] [id number] [address] [place] [address], [place] [address] 18 Oct, 2014 [facility] [address] [id number] [address] [place] [address], [place] [address] 17 Oct, 2014 [facility] [address] [id number] [address] [place] [address], [place] [address] 17 Oct, 2014 [facility] [address] [id number] [address] [place] [address], [place] [address] 16 Oct, 2014 [facility] [address] [id number] [address] [place] [address], [place] [address] 16 Oct, 2014 [facility] [address] [id number] [address] [place] [address], [place] [address] 11 Oct, 2014 [facility] [address] [id number] [address] [place] [address], [place] [address] Oct, [facility] [address] [id number] [address] [place] [address], [place] [address] Sep, [facility] [address] [id number] [address] [place] [address], [place] [address] 27 Sep, 2014 [facility] [address] [id number] [address] [place] [address], [place] [address] Sep, 2014 [facility] [address] [id number] [address] [place] [address], [place] [address] Sep, 2014 [facility] [address] [id number] [address] [place] [address], [place] [address] Sep, 2014 [facility] [address] [id number] [address] [place] [address], [place] [address] Sep, [facility] [address] [id number] [address] [place] [address], [place] [address] Sep, [facility] [address] [id number] [address] [place] [address], [place] [address] Aug, [facility] [address] [id number] [address] [place] [address], [place] [address] Aug, [facility] [address] [id number] [address] [place] [address], [place] [address] Aug, [facility] [address] [id number] [address] [place] [address], [place] [address] Aug, [facility] [address] [id number] [address] [place] [address], [place] [address] Aug, [facility] [address] [id number] [address] [place] [address], [place] [address] Aug, [facility] [address] [id number] [address] [place] [address], [place] [address] Jul, [facility] [address] [id number] [address] [place] [address], [place] [address] Jul, [facility] [address] [id number] [address] [place] [address], [place] [address] Jul, [facility] [address] [id number] [address] [place] [address], [place] [address] Jul, [facility] [address] [id number] [address] [place] [address], [place] [address] Jul, [facility] [address] [id number] [address] [place] [address], [place] [address] Jun, [facility] [address] [id number] [address] [place] [address], [place] [address] Jun, [facility] [address] [id number] [address] [place] [address], [place] [address] Jun, [facility] [address] [id number] [address] [place] [address], [place] [address] Jun, [facility] [address] [id number] [address] [place] [address], [place] [address] Jun, [facility] [address] [id number] [address] [place] [address], [place] [address] Jun, [facility] [address] [id number] [address] [place] [address], [place] [address] May, [facility] [address] [id number] [address] [place] [address], [place] [address] May, [facility] [address] [id number] [address] [place] [address], [place] [address] May, [facility] [address] [id number] [address] [place] [address], [place] [address] May, [facility] [address] [id number] [address] [place] [address] May, [facility] [address] [id number] [address] [place] [address], [place] [address] May, [facility] [address] [id number] [address] [place] [address], [place] [address] May, [facility] [address] [id number] [address] [place] [address], [place] [address] May, [facility] [address] [id number] [facility] [address] May, [facility] [address] [id number] [facility] [address] Apr, [facility] [address] [id number] [address] [place] [address], [place] [address] Apr, [facility] [address] [id number] [address] [place] [address], [place] [address] Apr, [facility] [address] [id number] [address] [place] [address], [place] [address] Apr, [facility] [address] [id number] [address] [place] [address], [place] [address] Mar, [facility] [address] [id number] [address] [place] [address], [place] [address] Mar, [facility] [address] [id number] [address] [place] [address], [place] [address] Mar, [facility] [address] [id number] [address] [place] [address], [place] [address] Mar, [facility] [address] [id number] [address] [place] [address], [place] [address] Mar, [facility] [address] [id number] [address] [place] [address], [place] [address] Mar, [facility] [address] [id number] [address] [place] [address], [place] [address] Feb, [facility] [address] [id number] [address] [place] [address], [place] [address] Feb, [facility] [address] [id number] [address] [place] [address], [place] [address] Feb, [facility] [address] [id number] [address] [place] [address], [place] [address] Feb, [facility] [address] [id number] [address] [place] [address], [place] [address] Feb, [facility] [address] [id number] [address] [place] [address], [place] [address] Feb, [facility] [address] [id number] [address] [place] [address], [place] [address] Feb, [facility] [address] [id number] [address] [place] [address], [place] [address] Feb, 2013 [facility] [address] [id number] [address] [place] [address], [place] [address] Feb, [facility] [address] [id number] [address] [place] [address], [place] [address] Feb, [facility] [address] [id number] [address] [place] [address], [place] [address] Feb, [facility] [address] [id number] [address] [place] [address], [place] [address] Feb, [facility] [address] [id number] [address] [place] [address], [place] [address] Jan, [facility] [address] [id number] [address] [place] [address], [place] [address] Jan, [facility] [address] [id number] [address] [place] [address], [place] [address] Jan, [facility] [address] [id number] [address] [place] [address], [place] [address] Jan, [facility] [address] [id number] [address] [place] [address], [place] [address] Jan, [facility] [address] [id number] [address] [place] [address], [place] [address] Jan, [facility] [address] [id number] [address] [place] [address], [place] [address] Jan, [facility] [address] [id number] [address] [place] [address], [place] [address] Jan, [facility] [address] [id number] [address] [place] [address], [place] [address] Jan, [facility] [address] [id number] [address] [place] [address], [place] [address] Jan, [facility] [address] [id number] [address] [place] [address], [place] [address] Jan, [facility] [address] [id number] [address] [place] [address], [place] [address] Jan, [facility] [address] [id number] [address] [place] [address], [place] [address] Jan, [facility] [address] [id number] [address] [place] [address], [place] [address] Jan, [facility] [address] [id number] [address] [place] [address], [place] [address] Jan, [facility] [address] [id number] [address] [place] [address], [place] [address] Jan, [facility] [address] [id number] [address] [place] [address], [place] [address] Jan, [facility] [address] [id number] [address] [place] [address], [place] [address] December, [facility] [address] [id number] [address] [place] [address], [place] [address] December, [facility] [address] [id number] [address] [place] [address], [place] [address] December, [facility] [address] [id number] [address] [place] [address], [place] [address] December, [facility] [address] [id number] [address] [place] [address], [place] [address] December, [facility] [address] [id number] [address] [place] [address], [place] [address] December, [facility] [address] [id number] [address] [place] [address], [place] [address] Nov, [facility] [address] [id number] [facility] [address] Nov, [facility] [address] [id number] [address] [place] [address], [place] [address] Nov, [facility] [address] [id number] [address] [place] [address], [place] [address] Nov, [facility] [address] [id number] [address] [place] [address], [place] [address] Nov, [facility] [address] [id number] [address] [place] [address], [place] [address] Nov, [facility] [address] [id number] [address] [place] [address], [place] [address] Nov, [facility] [address] [id number] [address] [place] [address], [place] [address] Nov, [facility] [address] [id number] [address] [place] [address], [place] [address] Nov, [facility] [address] [id number] [address] [place] [address], [place] [address] Nov, [facility] [address] [id number] [address] [place] [address], [place] [address] Nov, [facility] [address] [id number] [address] [place] [address], [place] [address] Nov, [facility] [address] [id number] [address] [place] [address], [place] [address] Nov, [facility] [address] [id number] [address] [place] [address], [place] [address] Nov, [facility] [address] [id number] [address] [place] [address], [place] [address] Nov, [facility] [address] [id number] [address] [place] [address], [place] [address] Nov, [facility] [address] [id number] [address] [place] [address], [place] [address] Oct, [facility] [address] [id number] [facility] [address] Oct, [facility] [address] [id number] [address] [place] [address], [place] [address] Oct, [facility] [address] [id number] [address] [place] [address], [place] [address] Oct, [facility] [address] [id number] [address] [place] [address], [place] [address] Oct, [facility] [address] [id number] [address] [place] [address], [place] [address] Oct, [facility] [address] [id number] [address] [place] [address], [place] [address] Oct, [facility] [address] [id number] [address] [place] [address], [place] [address] Oct, [facility] [address] [id number] [address] [place] [address], [place] [address] Sep, [facility] [address] [id number] [address] [place] [address], [place] [address] Sep, [facility] [address] [id number] [address] [place] [address], [place] [address] Sep, [facility] [address] [id number] [address] [place] [address], [place] [address] Sep, [facility] [address] [id number] [address] [place] [address], [place] [address] Sep, [facility] [address] [id number] [address] [place] [address], [place] [address] Sep, [facility] [address] [id number] [address] [place] [address], [place] [address] Aug, [facility] [address] [id number] [address] [place] [address], [place] [address] Aug, [facility] [address] [id number] [address] [place] [address], [place] [address] Aug, [facility] [address] [id number] [address] [place] [address], [place] [address] Aug, [facility] [address] [id number] [address] [place] [address], [place] [address] Aug, [facility] [address] [id number] [address] [place] [address], [place] [address] Aug, [facility] [address] [id number] [address] [place] [address], [place] [address] Aug, [facility] [address] [id number] [address] [place] [address], [place] [address] Aug, [facility] [address] [id number] [address] [place] [address], [place] [address] Jul, [facility] [address] [id number] [address] [place] [address], [place] [address] Jul, [facility] [address] [id number] [address] [place] [address], [place] [address] Jul, [facility] [address] [id number] [address] [place] [address], [place] [address] Jul, [facility] [address] [id number] [address] [place] [address], [place] [address] Jul, [facility] [address] [id number] [address] [place] [address], [place] [address] Jul, [facility] [address] [id number] [address] [place] [address], [place] [address] Jul, [facility] [address] [id number] [address] [place] [address], [place] [address] Jul, [facility] [address] [id number] [address] [place] [address], [place] [address] Jul, [facility] [address] [id number] [address] [place] [address], [place] [address] Jun, [facility] [address] [id number] [address] [place] [address], [place] [address] 14 Jun, 2013 [facility] [address] [id number] [address] [place] [address], [place] [address] 13 Jun, 2013 [facility] [address] [id number] [address] [place] [address], [place] [address] 13 Jun, 2013 [facility] [address] [id number] [address] [place] [address], [place] [address] 07 Jun, 2013 [facility] [address] [id number] [address] [place] [address], [place] [address] 07 Jun, 2013 [facility] [address] [id number] [address] [place] [address], [place] [address] 31 May, 2013 [facility] [address] [id number] [address] [place] [address], [place] [address] 31 May, 2013 [facility] [address] [id number] [address] [place] [address] 17 May, 2013 [facility] [address] [id number] [address] [place] [address], [place] [address] 17 May, 2013 [facility] [address] [id number] [address] [place] [address] 14 May, 2013 [facility] [address] [id number] [address] [place] [id number] 14 May, 2013 [facility] [address] [id number] [address] [place] [id number] 10 May, 2013 [facility] [address] [id number] [address] [place] [address], [place] [address] 10 May, 2013 [facility] [address] [id number] [address] [place] [id number] 07 May, 2013 [facility] [address] [id number] [address] [place] [address], [place] [address] 20 Apr, 2013 [facility] [address] [id number] [address] [place] [address], [place] [address] 19 Sep, 2012 [facility] [address] [id number] [address] [place] [address], [place] [address] 12 Sep, 2012 [facility] [address] [id number] [address] [place] [address], [place] [address] 24 Sep, 2011 [facility] [address] [id number] [address] [place] [address], [place] [address] 21 Sep, 2011 [facility] [address] [id number] [address] [place] [address], [place] [address] 21 Sep, 2011 [facility] [address] [id number] [address] [place] [address], [place] [address] 14 Apr, 2011 [facility] [address] [id number] [address] [place] [address], [place] [address] 10 Apr, 2011 [facility] [address] [id number] [address] [place] [address], [place] [address] 06 Apr, 2011 [facility] [address] [id number] [address] [place] [address], [place] [address] 04 Apr, 2011 [facility] [address] [id number] [address] [place] [address], [place] [address] 31 Mar, 2012 [facility] [address] [id number] [address] [place] [address], [place] [address] 28 Mar, 2012 [facility] [address] [id number] [address] [place] [address], [place] [address] 27 Mar, 2012 [facility] [address] [id number] [address] [place] [address], [place] [address] 10 Mar, 2012 [facility] [address] [id number] [address] [place] [address], [place] [id number] 08 Mar, 2012 [facility] [address] [id number] [address] [place] [address], [place] [address] 03 Mar, 2012 [facility] [address] [id number] [address] [place] [address], [place] [address] 20 Feb, 2012 [facility] [address] [id number] [address] [place] [address], [place] [address] 10 Feb, 2012 [facility] [address] [id number] [address] [place] [address], [place] [address] Feb, [facility] [address] [id number] [address] [place] [address], [place] [address] Jan, [facility] [address] [id number] [address] [place] [address], [place] [address] Jan, [facility] [address] [id number] [address] [place] [address], [place] [address] Jan, [facility] [address] [id number] [address] [place] [address], [place] [address] Jan, [facility] [address] [id number] [address] [place] [address], [place] [address] Jan, [facility] [address] [id number] [address] [place] [address], [place] [address] Jan, [facility] [address] [id number] [address] [place] [address], [place] [address] Jan, [facility] [address] [id number] [address] [place] [address], [place] [address] Jan, [facility] [address] [id number] [address] [place] [address], [place] [address] December, [facility] [address] [id number] [address] [place] [address], [place] [address] December, [facility] [address] [id number] [address] [place] [address], [place] [address] December, [facility] [address] [id number] [address] [place] [address], [place] [address] December, [facility] [address] [id number] [address] [place] [address], [place] [address] December, [facility] [address] [id number] [address] [place] [address], [place] [address] December, [facility] [address] [id number] [address] [place] [address], [place] [address] 13 Nov, 2011 [facility] [address] [id number] [address] [place] [address], [place] [address] 13 Nov, 2011 [facility] [address] [id number] [address] [place] [address], [place] [address] 13 Nov, 2011 [facility] [address] [id number] [address] [place] [address], [place] [address] 13 Nov, 2011 [facility] [address] [id number] [address] [place] [address], [place] [address] Nov, [facility] [address] [id number] [address] [place] [address], [place] [address] 15 Oct, 2011 [facility] [address] [id number] [address] [place] [address], [place] [address] 17 Sep, 2011 [facility] [address] [id number] [address] [place] [address], [place] [address] Aug, [facility] [address] [id number] [address] [place] [address], [place] [address] Aug, [facility] [address] [id number] [address] [place] [address], [place] [address] Aug, [facility] [address] [id number] [address] [place] [address], [place] [address] Aug, [facility] [address] [id number] [address] [place] [address], [place] [address] Aug, [facility] [address] [id number] [address] [place] [address], [place] [address] Jul, [facility] [address] [id number] [address] [place] [address], [place] [address] Jul, [facility] [address] [id number] [address] [place] [address], [place] [address] Jun, [facility] [address] [id number] [address] [place] [address], [place] [address] 04 Jun, 2011 [facility] [address] [id number] [address] [place] [address], [place] [address] Jun, [facility] [address] [id number] [address] [place] [address], [place] [address] 18 May, 2011 [facility] [address] [id number] [address] [place] [address], [place] [address] May, [facility] [address] [id number] [address] [place] [address], [place] [address] 16 Oct, 2010 [facility] [address] [id number] [address] [place] [address], [place] [address] Oct, [facility] [address] [id number] [address] [place] [address], [place] [address] Jul, [facility] [address] [id number] [address] [place] [address], [place] [address] 08 Jul, 2010 [facility] [address] [id number] [address] [place] [address], [place] [address] Jul, [facility] [address] [id number] [address] [place] [address], [place] [address] Jul, [facility] [address] [id number] [address] [place] [address], [place] [address] Jul, [facility] [address] [id number] [address] [place] [address], [place] [address] Jun, [facility] [address] [id number] [address] [place] [address], [place] [address] Jun, [facility] [address] [id number] [address] [place] [address], [place] [address] Jun, [facility] [address] [id number] [address] [place] [address], [place] [address] May, [facility] [address] [id number] [address] [place] [address] 16 Mar, 2010 IMMUNIZATIONS No Known Immunizations SOCIAL HISTORY Never Assessed REASON FOR VISIT [place] [place] VITAL SIGNS MEDICATIONS Unknown [...]
--- OUTSIDE RECORDS SUMMARY | 2019-11-28 22:56 | XMS REPORT ---
Author Author Caren Barba Doctor Organization [facility] Address Unknown Phone Unavailable Care Team Providers Care Client Support Administrator Name Role Phone Migration, Doctor Unavailable Unavailable PROBLEMS Type Condition ICD9-CM Code VVM45-NX Code Onset Dates Condition S tatus SNOMED Code Problem COPD (chronic obstructive pulmonary disease) J44.9 Active 77976801 Problem Diabetes E11.9 Active 29913613 Problem Diabetic neuropathy E11.40 Active 791195140 Problem Arthritis M19.90 Active 3296906 ALLERGIES No Information ENCOUNTERS Encounter Location Date Diagnosis [facility] [address] [id number] [address] [place] [address] December, [facility] [address] [id number] [address] [place] [address] Aug, Arthritis M19.90 [facility] [address] [id number] [address] [place] [address] Jul, [facility] [address] [id number] [address] [place] [address] Jul, [facility] [address] [id number] [address] [place] [address] Jul, [facility] [address] [id number] [address] [place] [address] Jul, [facility] [address] [id number] [address] [place] [address] Jul, Diabetes E11.9 ; Diabetic ne uropathy E11.40 ; Arthritis M19.90 and COPD (chronic obstructive pulmonary disease) J44.9 [facility] [address] [id number] [address] [place] [address] Jul, [facility] [address] [id number] [address] [place] [address] Jun, [facility] [address] [id number] [address] [place] [address], [place] [address] Jun, [facility] [address] [id number] [address] [place] [address], [place] [address] 17 Jun, 2015 [facility] [address] [id number] [address] [place] [address], [place] [address] 10 Jun, 2015 [facility] [address] [id number] [address] [place] [address], [place] [address] 15 May, 2015 [facility] [address] [id number] [address] [place] [address], [place] [address] 13 May, 2015 [facility] [address] [id number] [address] [place] [address], [place] [address] 07 May, 2015 [facility] [address] [id number] [address] [place] [address], [place] [address] 22 Apr, 2014 [facility] [address] [id number] [address] [place] [address], [place] [address] 21 Sep, 2014 [facility] [address] [id number] [address] [place] [address], [place] [address] 21 Sep, 2014 [facility] [address] [id number] [address] [place] [address] 15 Apr, 2014 [facility] [address] [id number] [address] [place] [address] 11 Sep, 2014 [facility] [address] [id number] [address] [place] [address] 09 Sep, 2014 [facility] [address] [id number] [address] [place] [address] 08 Sep, 2014 [facility] [address] [id number] [address] [place] [address] 03 Sep, 2014 [facility] [address] [id number] [address] [place] [address] 02 Sep, 2014 [facility] [address] [id number] [address] [place] [address] Mar, [facility] [address] [id number] [address] [place] [address] Mar, [facility] [address] [id number] [address] [place] [address] Mar, [facility] [address] [id number] [address] [place] [address] Mar, [facility] [address] [id number] [address] [place] [address] Mar, [facility] [address] [id number] [address] [place] [address] Mar, Diabetes mellitus 250.00 ; C OPD (chronic obstructive pulmonary disease) 496 ; Anxiety 300.00 and Arthritis 716.90 [facility] [address] [id number] [address] [place] [id number] Feb, [facility] [address] [id number] [address] [place] [address] Feb, [facility] [address] [id number] [address] [place] [address] Feb, [facility] [address] [id number] [address] [place] [address] Feb, [facility] [address] [id number] [address] [place] [address] Jan, Seborrheic keratosis 702.19 and Nevus 216.9 [facility] [address] [id number] [address] [place] [address] Jan, [facility] [address] [id number] [address] [place] [address] Jan, Routine gynecological examin ation V72.31 ; Breast cancer screening V76.10 ; Hot flashes 627.2 ; Atypical nevi 216.9 and Constipation 564.00 [facility] [address] [id number] [address] [place] [address] Jan, [facility] [address] [id number] [address] [place] [address], [place] [address] December, [facility] [address] [id number] [address] [place] [address], [place] [address] December, [facility] [address] [id number] [address] [place] [address], [place] [address] 14 Nov, 2014 [facility] [address] [id number] [address] [place] [address], [place] [address] Nov, [facility] [address] [id number] [address] [place] [address], [place] [address] 23 Oct, 2014 [facility] [address] [id number] [address] [place] [address], [place] [address] 23 Oct, 2014 [facility] [address] [id number] [address] [place] [address], [place] [address] 18 Oct, 2014 [facility] [address] [id number] [address] [place] [address], [place] [address] 18 Oct, 2014 [facility] [address] [id number] [address] [place] [address], [place] [address] 17 Oct, 2014 [facility] [address] [id number] [address] [place] [address], [place] [address] 17 Oct, 2014 [facility] [address] [id number] [address] [place] [address], [place] [address] 16 Oct, 2014 [facility] [address] [id number] [address] [place] [address], [place] [address] 16 Oct, 2014 [facility] [address] [id number] [address] [place] [address], [place] [address] 11 Oct, 2014 [facility] [address] [id number] [address] [place] [address], [place] [address] Oct, [facility] [address] [id number] [address] [place] [address], [place] [address] Sep, [facility] [address] [id number] [address] [place] [address], [place] [address] 27 Sep, 2014 [facility] [address] [id number] [address] [place] [address], [place] [address] Sep, 2014 [facility] [address] [id number] [address] [place] [address], [place] [address] Sep, 2014 [facility] [address] [id number] [address] [place] [address], [place] [address] Sep, 2014 [facility] [address] [id number] [address] [place] [address], [place] [address] Sep, [facility] [address] [id number] [address] [place] [address], [place] [address] Sep, [facility] [address] [id number] [address] [place] [address], [place] [address] Aug, [facility] [address] [id number] [address] [place] [address], [place] [address] Aug, [facility] [address] [id number] [address] [place] [address], [place] [address] Aug, [facility] [address] [id number] [address] [place] [address], [place] [address] Aug, [facility] [address] [id number] [address] [place] [address], [place] [address] Aug, [facility] [address] [id number] [address] [place] [address], [place] [address] Aug, [facility] [address] [id number] [address] [place] [address], [place] [address] Jul, [facility] [address] [id number] [address] [place] [address], [place] [address] Jul, [facility] [address] [id number] [address] [place] [address], [place] [address] Jul, [facility] [address] [id number] [address] [place] [address], [place] [address] Jul, [facility] [address] [id number] [address] [place] [address], [place] [address] Jul, [facility] [address] [id number] [address] [place] [address], [place] [address] Jun, [facility] [address] [id number] [address] [place] [address], [place] [address] Jun, [facility] [address] [id number] [address] [place] [address], [place] [address] Jun, [facility] [address] [id number] [address] [place] [address], [place] [address] Jun, [facility] [address] [id number] [address] [place] [address], [place] [address] Jun, [facility] [address] [id number] [address] [place] [address], [place] [address] Jun, [facility] [address] [id number] [address] [place] [address], [place] [address] May, [facility] [address] [id number] [address] [place] [address], [place] [address] May, [facility] [address] [id number] [address] [place] [address], [place] [address] May, [facility] [address] [id number] [address] [place] [address], [place] [address] May, [facility] [address] [id number] [address] [place] [address] May, [facility] [address] [id number] [address] [place] [address], [place] [address] May, [facility] [address] [id number] [address] [place] [address], [place] [address] May, [facility] [address] [id number] [address] [place] [address], [place] [address] May, [facility] [address] [id number] [facility] [place] [address] May, [facility] [address] [id number] [facility] [place] [address] Apr, [facility] [address] [id number] [address] [place] [address], [place] [address] Apr, [facility] [address] [id number] [address] [place] [address], [place] [address] Apr, [facility] [address] [id number] [address] [place] [address], [place] [address] Apr, [facility] [address] [id number] [address] [place] [address], [place] [address] Mar, [facility] [address] [id number] [address] [place] [address], [place] [address] Mar, [facility] [address] [id number] [address] [place] [address], [place] [address] Mar, [facility] [address] [id number] [address] [place] [address], [place] [address] Mar, [facility] [address] [id number] [address] [place] [address], [place] [address] Mar, [facility] [address] [id number] [address] [place] [address], [place] [address] Mar, [facility] [address] [id number] [address] [place] [address], [place] [address] Feb, [facility] [address] [id number] [address] [place] [address], [place] [address] Feb, [facility] [address] [id number] [address] [place] [address], [place] [address] Feb, [facility] [address] [id number] [address] [place] [address], [place] [address] Feb, [facility] [address] [id number] [address] [place] [address], [place] [address] Feb, [facility] [address] [id number] [address] [place] [address], [place] [address] Feb, [facility] [address] [id number] [address] [place] [address], [place] [address] Feb, [facility] [address] [id number] [address] [place] [address], [place] [address] Feb, 2013 [facility] [address] [id number] [address] [place] [address], [place] [address] Feb, [facility] [address] [id number] [address] [place] [address], [place] [address] Feb, [facility] [address] [id number] [address] [place] [address], [place] [address] Feb, [facility] [address] [id number] [address] [place] [address], [place] [address] Feb, [facility] [address] [id number] [address] [place] [address], [place] [address] Jan, [facility] [address] [id number] [address] [place] [address], [place] [address] Jan, [facility] [address] [id number] [address] [place] [address], [place] [address] Jan, [facility] [address] [id number] [address] [place] [address], [place] [address] Jan, [facility] [address] [id number] [address] [place] [address], [place] [address] Jan, [facility] [address] [id number] [address] [place] [address], [place] [address] Jan, [facility] [address] [id number] [address] [place] [address], [place] [address] Jan, [facility] [address] [id number] [address] [place] [address], [place] [address] Jan, [facility] [address] [id number] [address] [place] [address], [place] [address] Jan, [facility] [address] [id number] [address] [place] [address], [place] [address] Jan, [facility] [address] [id number] [address] [place] [address], [place] [address] Jan, [facility] [address] [id number] [address] [place] [address], [place] [address] Jan, [facility] [address] [id number] [address] [place] [address], [place] [address] Jan, [facility] [address] [id number] [address] [place] [address], [place] [address] Jan, [facility] [address] [id number] [address] [place] [address], [place] [address] Jan, [facility] [address] [id number] [address] [place] [address], [place] [address] Jan, [facility] [address] [id number] [address] [place] [address], [place] [address] Jan, [facility] [address] [id number] [address] [place] [address], [place] [address] December, [facility] [address] [id number] [address] [place] [address], [place] [address] December, [facility] [address] [id number] [address] [place] [address], [place] [address] December, [facility] [address] [id number] [address] [place] [address], [place] [address] December, [facility] [address] [id number] [address] [place] [address], [place] [address] December, [facility] [address] [id number] [address] [place] [address], [place] [address] December, [facility] [address] [id number] [address] [place] [address], [place] [address] Nov, [facility] [address] [id number] [facility] [place] [address] Nov, [facility] [address] [id number] [address] [place] [address], [place] [address] Nov, [facility] [address] [id number] [address] [place] [address], [place] [address] Nov, [facility] [address] [id number] [address] [place] [address], [place] [address] Nov, [facility] [address] [id number] [address] [place] [address], [place] [address] Nov, [facility] [address] [id number] [address] [place] [address], [place] [address] Nov, [facility] [address] [id number] [address] [place] [address], [place] [address] Nov, [facility] [address] [id number] [address] [place] [address], [place] [address] Nov, [facility] [address] [id number] [address] [place] [address], [place] [address] Nov, [facility] [address] [id number] [address] [place] [address], [place] [address] Nov, [facility] [address] [id number] [address] [place] [address], [place] [address] Nov, [facility] [address] [id number] [address] [place] [address], [place] [address] Nov, [facility] [address] [id number] [address] [place] [address], [place] [address] Nov, [facility] [address] [id number] [address] [place] [address], [place] [address] Nov, [facility] [address] [id number] [address] [place] [address], [place] [address] Nov, [facility] [address] [id number] [address] [place] [address], [place] [address] Oct, [facility] [address] [id number] [facility] [place] [address] Oct, [facility] [address] [id number] [address] [place] [address], [place] [address] Oct, [facility] [address] [id number] [address] [place] [address], [place] [address] Oct, [facility] [address] [id number] [address] [place] [address], [place] [address] Oct, [facility] [address] [id number] [address] [place] [address], [place] [address] Oct, [facility] [address] [id number] [address] [place] [address], [place] [address] Oct, [facility] [address] [id number] [address] [place] [address], [place] [id number] Oct, [facility] [address] [id number] [address] [place] [address], [place] [address] Sep, [facility] [address] [id number] [address] [place] [address], [place] [address] Sep, [facility] [address] [id number] [address] [place] [address], [place] [address] Sep, [facility] [address] [id number] [address] [place] [address], [place] [address] Sep, [facility] [address] [id number] [address] [place] [address], [place] [address] Sep, [facility] [address] [id number] [address] [place] [address], [place] [address] Sep, [facility] [address] [id number] [address] [place] [address], [place] [address] Aug, [facility] [address] [id number] [address] [place] [address], [place] [address] Aug, [facility] [address] [id number] [address] [place] [address], [place] [address] Aug, [facility] [address] [id number] [address] [place] [address], [place] [address] Aug, [facility] [address] [id number] [address] [place] [address], [place] [address] Aug, [facility] [address] [id number] [address] [place] [address], [place] [address] Aug, [facility] [address] [id number] [address] [place] [address], [place] [address] Aug, [facility] [address] [id number] [address] [place] [address], [place] [address] Aug, [facility] [address] [id number] [address] [place] [address], [place] [address] Jul, [facility] [address] [id number] [address] [place] [address], [place] [address] Jul, [facility] [address] [id number] [address] [place] [address], [place] [address] Jul, [facility] [address] [id number] [address] [place] [address], [place] [address] Jul, [facility] [address] [id number] [address] [place] [address], [place] [address] Jul, [facility] [address] [id number] [address] [place] [address], [place] [address] Jul, [facility] [address] [id number] [address] [place] [address], [place] [id number] Jul, [facility] [address] [id number] [address] [place] [address], [place] [address] Jul, [facility] [address] [id number] [address] [place] [address], [place] [id number] Jul, [facility] [address] [id number] [address] [place] [address], [place] [address] Jun, [facility] [address] [id number] [address] [place] [address], [place] [address] 14 Jun, 2013 [facility] [address] [id number] [address] [place] [address], [place] [address] 13 Jun, 2013 [facility] [address] [id number] [address] [place] [address], [place] [address] 13 Jun, 2013 [facility] [address] [id number] [address] [place] [address], [place] [address] 07 Jun, 2013 [facility] [address] [id number] [address] [place] [address], [place] [address] 07 Jun, 2013 [facility] [address] [id number] [address] [place] [address], [place] [id number] 31 May, 2013 [facility] [address] [id number] [address] [place] [address], [place] [address] 31 May, 2013 [facility] [address] [id number] [address] [place] [id number] 17 May, 2013 [facility] [address] [id number] [address] [place] [address], [place] [address] 17 May, 2013 [facility] [address] [id number] [address] [place] [id number] 14 May, 2013 [facility] [address] [id number] [address] [place] [id number] 14 May, 2013 [facility] [address] [id number] [address] [place] [id number] 10 May, 2013 [facility] [address] [id number] [address] [place] [address], [place] [address] 10 May, 2013 [facility] [address] [id number] [address] [place] [id number] 07 May, 2013 [facility] [address] [id number] [address] [place] [address], [place] [address] 20 Apr, 2013 [facility] [address] [id number] [address] [place] [address], [place] [id number] 19 Sep, 2012 [facility] [address] [id number] [address] [place] [address], [place] [address] 12 Sep, 2012 [facility] [address] [id number] [address] [place] [address], [place] [id number] 24 Sep, 2011 [facility] [address] [id number] [address] [place] [address], [place] [address] 21 Sep, 2011 [facility] [address] [id number] [address] [place] [address], [place] [address] 21 Sep, 2011 [facility] [address] [id number] [address] [place] [address], [place] [address] 14 Apr, 2011 [facility] [address] [id number] [address] [place] [address], [place] [id number] 10 Apr, 2011 [facility] [address] [id number] [address] [place] [address], [place] [id number] 06 Apr, 2011 [facility] [address] [id number] [address] [place] [address], [place] [id number] 04 Apr, 2011 [facility] [address] [id number] [address] [place] [address], [place] [id number] 31 Mar, 2012 [facility] [address] [id number] [address] [place] [address], [place] [id number] 28 Mar, 2012 [facility] [address] [id number] [address] [place] [address], [place] [id number] 27 Mar, 2012 [facility] [address] [id number] [address] [place] [address], [place] [id number] 10 Mar, 2012 [facility] [address] [id number] [address] [place] [address], [place] [address] 08 Mar, 2012 [facility] [address] [id number] [address] [place] [address], [place] [id number] 03 Mar, 2012 [facility] [address] [id number] [address] [place] [address], [place] [id number] 20 Feb, 2012 [facility] [address] [id number] [address] [place] [address], [place] [id number] 10 Feb, 2012 [facility] [address] [id number] [address] [place] [address], [place] [address] Feb, [facility] [address] [id number] [address] [place] [address], [place] [address] Jan, [facility] [address] [id number] [address] [place] [address], [place] [address] Jan, [facility] [address] [id number] [address] [place] [address], [place] [address] Jan, [facility] [address] [id number] [address] [place] [address], [place] [address] Jan, [facility] [address] [id number] [address] [place] [address], [place] [address] Jan, [facility] [address] [id number] [address] [place] [address], [place] [address] Jan, [facility] [address] [id number] [address] [place] [address], [place] [address] Jan, [facility] [address] [id number] [address] [place] [address], [place] [address] Jan, [facility] [address] [id number] [address] [place] [address], [place] [address] December, [facility] [address] [id number] [address] [place] [address], [place] [address] December, [facility] [address] [id number] [address] [place] [address], [place] [id number] December, [facility] [address] [id number] [address] [place] [address], [place] [address] December, [facility] [address] [id number] [address] [place] [address], [place] [address] December, [facility] [address] [id number] [address] [place] [address], [place] [id number] December, [facility] [address] [id number] [address] [place] [address], [place] [address] 13 Nov, 2011 [facility] [address] [id number] [address] [place] [address], [place] [id number] 13 Nov, 2011 [facility] [address] [id number] [address] [place] [address], [place] [id number] 13 Nov, 2011 [facility] [address] [id number] [address] [place] [address], [place] [id number] 13 Nov, 2011 [facility] [address] [id number] [address] [place] [address], [place] [address] Nov, [facility] [address] [id number] [address] [place] [address], [place] [id number] 15 Oct, 2011 [facility] [address] [id number] [address] [place] [address], [place] [id number] 17 Sep, 2011 [facility] [address] [id number] [address] [place] [address], [place] [address] Aug, [facility] [address] [id number] [address] [place] [address], [place] [address] Aug, [facility] [address] [id number] [address] [place] [address], [place] [id number] Aug, [facility] [address] [id number] [address] [place] [address], [place] [address] Aug, [facility] [address] [id number] [address] [place] [address], [place] [address] Aug, [facility] [address] [id number] [address] [place] [address], [place] [address] Jul, [facility] [address] [id number] [address] [place] [address], [place] [address] Jul, [facility] [address] [id number] [address] [place] [address], [place] [id number] Jun, [facility] [address] [id number] [address] [place] [address], [place] [address] 04 Jun, 2011 [facility] [address] [id number] [address] [place] [address], [place] [address] Jun, [facility] [address] [id number] [address] [place] [address], [place] [id number] 18 May, 2011 [facility] [address] [id number] [address] [place] [address], [place] [address] May, [facility] [address] [id number] [address] [place] [address], [place] [address] 16 Oct, 2010 [facility] [address] [id number] [address] [place] [address], [place] [id number] Oct, [facility] [address] [id number] [address] [place] [address], [place] [id number] Jul, [facility] [address] [id number] [address] [place] [address], [place] [id number] 08 Jul, 2010 [facility] [address] [id number] [address] [place] [address], [place] [id number] Jul, [facility] [address] [id number] [address] [place] [address], [place] [id number] Jul, [facility] [address] [id number] [address] [place] [address], [place] [id number] Jul, [facility] [address] [id number] [address] [place] [address], [place] [id number] Jun, [facility] [address] [id number] [address] [place] [address], [place] [address] Jun, [facility] [address] [id number] [address] [place] [address], [place] [address] Jun, [facility] [address] [id number] [address] [place] [address], [place] [address] May, [facility] [address] [id number] [address] [place] [id number] 16 Mar, 2010 IMMUNIZATIONS No Known Immunizations SOCIAL HISTORY Never Assessed REASON FOR VISIT EMR-[facility] [place] [facility] PLAN OF CARE VITAL [...]
--- OUTSIDE RECORDS SUMMARY | 2019-11-28 22:56 | XMS REPORT ---
Author Author Caren Barba Doctor Organization [facility] Address Unknown Phone Unavailable Care Team Providers Care Plasterer Spot Name Role Phone Migration, Doctor Unavailable Unavailable PROBLEMS Type Condition ICD9-CM Code [id number] Code Onset Dates Condition S tatus SNOMED Code Problem COPD (chronic obstructive pulmonary disease) J44.9 Active 98485936 Problem Diabetes E11.9 Active 77136786 Problem Diabetic neuropathy E11.40 Active 760926312 Problem Arthritis M19.90 Active 7715505 ALLERGIES No Information ENCOUNTERS Encounter Location Date Diagnosis [facility] [address] [facility] [id number] [address] [place] [address] December, [facility] [address] [id number] [address] [place] [address] Aug, Arthritis M19.90 [facility] [address] [id number] [address] [place] [address] Jul, [facility] [address] [id number] [address] [place] [address] Jul, [facility] [address] [facility] [id number] [address] [place] [address] Jul, [facility] [address] [id number] [address] [place] [address] Jul, [facility] [address] [facility] [id number] [address] [place] [address] Jul, Diabetes E11.9 ; Diabetic ne uropathy E11.40 ; Arthritis M19.90 and COPD (chronic obstructive pulmonary disease) J44.9 [facility] [address] [id number] [address] [place] [address] Jul, [facility] [address] [facility] [id number] [address] [place] [address] Jun, [facility] [address] [id number] [address] [place] [address], [place] [address] Jun, [facility] [address] [id number] [address] [place] [address], [place] [address] 17 Jun, 2015 [facility] [address] [id number] [address] [place] [address], [place] [address] 10 Jun, 2015 [facility] [address] [id number] [address] [place] [address], [place] [address] 15 May, 2015 [facility] [address] [id number] [address] [place] [address], [place] [address] 13 May, 2015 [facility] [address] [id number] [address] [place] [address], [place] [address] 07 May, 2015 [facility] [address] [id number] [address] [place] [address], [place] [address] 22 Apr, 2014 [facility] [address] [id number] [address] [place] [address], [place] [address] 21 Sep, 2014 [facility] [address] [id number] [address] [place] [address], [place] [address] 21 Sep, 2014 [facility] [address] [id number] [address] [place] [address] 15 Apr, 2014 [facility] [address] [id number] [address] [place] [address] 11 Sep, 2014 [facility] [address] [id number] [address] [place] [address] 09 Sep, 2014 [facility] [address] [id number] [address] [place] [address] 08 Sep, 2014 [facility] [address] [id number] [address] [place] [address] 03 Sep, 2014 [facility] [address] [id number] [address] [place] [address] 02 Sep, 2014 [facility] [address] [id number] [address] [place] [address] Mar, [facility] [address] [facility] [id number] [address] [place] [address] Mar, [facility] [address] [facility] [id number] [address] [place] [address] Mar, [facility] [address] [facility] [id number] [address] [place] [address] Mar, [facility] [address] [facility] [id number] [address] [place] [address] Mar, [facility] [address] [facility] [id number] [address] [place] [address] Mar, Diabetes mellitus 250.00 ; C OPD (chronic obstructive pulmonary disease) 496 ; Anxiety 300.00 and Arthritis 716.90 [facility] [address] [facility] [id number] [address] [place] [address] Feb, [facility] [address] [facility] [id number] [address] [place] [address] Feb, [facility] [address] [facility] [id number] [address] [place] [address] Feb, [facility] [address] [facility] [id number] [address] [place] [address] Feb, [facility] [address] [facility] [id number] [address] [place] [address] Jan, Seborrheic keratosis 702.19 and Nevus 216.9 [facility] [address] [facility] [id number] [address] [place] [address] Jan, [facility] [address] [facility] [id number] [address] [place] [address] Jan, Routine gynecological examin ation V72.31 ; Breast cancer screening V76.10 ; Hot flashes 627.2 ; Atypical nevi 216.9 and Constipation 564.00 [facility] [address] [facility] [id number] [address] [place] [address] Jan, [facility] [address] [id number] [address] [place] [address], [place] [address] December, [facility] [address] [id number] [address] [place] [address], [place] [address] December, [facility] [address] [id number] [address] [place] [address], [place] [address] 14 Nov, 2014 [facility] [address] [id number] [address] [place] [address], [place] [address] Nov, [facility] [address] [id number] [address] [place] [address], [place] [address] 23 Oct, 2014 [facility] [address] [id number] [address] [place] [address], [place] [address] 23 Oct, 2014 [facility] [address] [id number] [address] [place] [address], [place] [address] 18 Oct, 2014 [facility] [address] [id number] [address] [place] [address], [place] [address] 18 Oct, 2014 [facility] [address] [id number] [address] [place] [address], [place] [address] 17 Oct, 2014 [facility] [address] [id number] [address] [place] [address], [place] [address] 17 Oct, 2014 [facility] [address] [id number] [address] [place] [address], [place] [address] 16 Oct, 2014 [facility] [address] [id number] [address] [place] [address], [place] [address] 16 Oct, 2014 [facility] [address] [id number] [address] [place] [address], [place] [address] 11 Oct, 2014 [facility] [address] [id number] [address] [place] [address], [place] [address] Oct, [facility] [address] [id number] [address] [place] [address], [place] [address] Sep, [facility] [address] [id number] [address] [place] [address], [place] [address] 27 Sep, 2014 [facility] [address] [id number] [address] [place] [address], [place] [address] Sep, 2014 [facility] [address] [id number] [address] [place] [address], [place] [address] Sep, 2014 [facility] [address] [id number] [address] [place] [address], [place] [address] Sep, 2014 [facility] [address] [id number] [address] [place] [address], [place] [address] Sep, [facility] [address] [id number] [address] [place] [address], [place] [address] Sep, [facility] [address] [id number] [address] [place] [address], [place] [address] Aug, [facility] [address] [id number] [address] [place] [address], [place] [address] Aug, [facility] [address] [id number] [address] [place] [address], [place] [address] Aug, [facility] [address] [id number] [address] [place] [address], [place] [address] Aug, [facility] [address] [id number] [address] [place] [address], [place] [address] Aug, [facility] [address] [id number] [address] [place] [address], [place] [address] Aug, [facility] [address] [id number] [address] [place] [address], [place] [address] Jul, [facility] [address] [id number] [address] [place] [address], [place] [address] Jul, [facility] [address] [id number] [address] [place] [address], [place] [address] Jul, [facility] [address] [id number] [address] [place] [address], [place] [address] Jul, [facility] [address] [id number] [address] [place] [address], [place] [address] Jul, [facility] [address] [id number] [address] [place] [address], [place] [address] Jun, [facility] [address] [id number] [address] [place] [address], [place] [address] Jun, [facility] [address] [id number] [address] [place] [address], [place] [address] Jun, [facility] [address] [id number] [address] [place] [address], [place] [address] Jun, [facility] [address] [id number] [address] [place] [address], [place] [address] Jun, [facility] [address] [id number] [address] [place] [address], [place] [address] Jun, [facility] [address] [id number] [address] [place] [address], [place] [address] May, [facility] [address] [id number] [address] [place] [address], [place] [address] May, [facility] [address] [id number] [address] [place] [address], [place] [address] May, [facility] [address] [id number] [address] [place] [address], [place] [address] May, [facility] [address] [id number] [address] [place] [address] May, [facility] [address] [id number] [address] [place] [address], [place] [address] May, [facility] [address] [id number] [address] [place] [address], [place] [address] May, [facility] [address] [id number] [address] [place] [address], [place] [address] May, [facility] [address] [id number] [facility] [place] [address] May, [facility] [address] [id number] [facility] [place] [address] Apr, [facility] [address] [id number] [address] [place] [address], [place] [address] Apr, [facility] [address] [id number] [address] [place] [address], [place] [address] Apr, [facility] [address] [id number] [address] [place] [address], [place] [address] Apr, [facility] [address] [id number] [address] [place] [address], [place] [address] Mar, [facility] [address] [id number] [address] [place] [address], [place] [address] Mar, [facility] [address] [id number] [address] [place] [address], [place] [address] Mar, [facility] [address] [id number] [address] [place] [address], [place] [address] Mar, [facility] [address] [id number] [address] [place] [address], [place] [address] Mar, [facility] [address] [id number] [address] [place] [address], [place] [address] Mar, [facility] [address] [id number] [address] [place] [address], [place] [address] Feb, [facility] [address] [id number] [address] [place] [address], [place] [address] Feb, [facility] [address] [id number] [address] [place] [address], [place] [address] Feb, [facility] [address] [id number] [address] [place] [address], [place] [address] Feb, [facility] [address] [id number] [address] [place] [address], [place] [address] Feb, [facility] [address] [id number] [address] [place] [address], [place] [address] Feb, [facility] [address] [id number] [address] [place] [address], [place] [address] Feb, [facility] [address] [id number] [address] [place] [address], [place] [address] Feb, 2013 [facility] [address] [id number] [address] [place] [address], [place] [address] Feb, [facility] [address] [id number] [address] [place] [address], [place] [address] Feb, [facility] [address] [id number] [address] [place] [address], [place] [address] Feb, [facility] [address] [id number] [address] [place] [address], [place] [address] Feb, [facility] [address] [id number] [address] [place] [address], [place] [address] Jan, [facility] [address] [id number] [address] [place] [address], [place] [address] Jan, [facility] [address] [id number] [address] [place] [address], [place] [address] Jan, [facility] [address] [id number] [address] [place] [address], [place] [address] Jan, [facility] [address] [id number] [address] [place] [address], [place] [address] Jan, [facility] [address] [id number] [address] [place] [address], [place] [address] Jan, [facility] [address] [id number] [address] [place] [address], [place] [address] Jan, [facility] [address] [id number] [address] [place] [address], [place] [address] Jan, [facility] [address] [id number] [address] [place] [address], [place] [address] Jan, [facility] [address] [id number] [address] [place] [address], [place] [address] Jan, [facility] [address] [id number] [address] [place] [address], [place] [address] Jan, [facility] [address] [id number] [address] [place] [address], [place] [address] Jan, [facility] [address] [id number] [address] [place] [address], [place] [address] Jan, [facility] [address] [id number] [address] [place] [address], [place] [address] Jan, [facility] [address] [id number] [address] [place] [address], [place] [address] Jan, [facility] [address] [id number] [address] [place] [address], [place] [address] Jan, [facility] [address] [id number] [address] [place] [address], [place] [address] Jan, [facility] [address] [id number] [address] [place] [address], [place] [address] December, [facility] [address] [id number] [address] [place] [address], [place] [address] December, [facility] [address] [id number] [address] [place] [address], [place] [address] December, [facility] [address] [id number] [address] [place] [address], [place] [address] December, [facility] [address] [id number] [address] [place] [address], [place] [address] December, [facility] [address] [id number] [address] [place] [address], [place] [address] December, [facility] [address] [id number] [address] [place] [address], [place] [address] Nov, [facility] [address] [id number] [facility] [place] [address] Nov, [facility] [address] [id number] [address] [place] [address], [place] [address] Nov, [facility] [address] [id number] [address] [place] [address], [place] [address] Nov, [facility] [address] [id number] [address] [place] [address], [place] [address] Nov, [facility] [address] [id number] [address] [place] [address], [place] [address] Nov, [facility] [address] [id number] [address] [place] [address], [place] [address] Nov, [facility] [address] [id number] [address] [place] [address], [place] [address] Nov, [facility] [address] [id number] [address] [place] [address], [place] [address] Nov, [facility] [address] [id number] [address] [place] [address], [place] [address] Nov, [facility] [address] [id number] [address] [place] [address], [place] [address] Nov, [facility] [address] [id number] [address] [place] [address], [place] [address] Nov, [facility] [address] [id number] [address] [place] [address], [place] [address] Nov, [facility] [address] [id number] [address] [place] [address], [place] [address] Nov, [facility] [address] [id number] [address] [place] [address], [place] [address] Nov, [facility] [address] [id number] [address] [place] [address], [place] [address] Nov, [facility] [address] [id number] [address] [place] [address], [place] [address] Oct, [facility] [address] [id number] [facility] [place] [address] Oct, [facility] [address] [id number] [address] [place] [address], [place] [address] Oct, [facility] [address] [id number] [address] [place] [address], [place] [address] Oct, [facility] [address] [id number] [address] [place] [address], [place] [address] Oct, [facility] [address] [id number] [address] [place] [address], [place] [address] Oct, [facility] [address] [id number] [address] [place] [address], [place] [address] Oct, [facility] [address] [id number] [address] [place] [address], [place] [address] Oct, [facility] [address] [id number] [address] [place] [address], [place] [address] Sep, [facility] [address] [id number] [address] [place] [address], [place] [address] Sep, [facility] [address] [id number] [address] [place] [address], [place] [address] Sep, [facility] [address] [id number] [address] [place] [address], [place] [address] Sep, [facility] [address] [id number] [address] [place] [address], [place] [address] Sep, [facility] [address] [id number] [address] [place] [address], [place] [address] Sep, [facility] [address] [id number] [address] [place] [address], [place] [address] Aug, [facility] [address] [id number] [address] [place] [address], [place] [address] Aug, [facility] [address] [id number] [address] [place] [address], [place] [address] Aug, [facility] [address] [id number] [address] [place] [address], [place] [address] Aug, [facility] [address] [id number] [address] [place] [address], [place] [address] Aug, [facility] [address] [id number] [address] [place] [address], [place] [address] Aug, [facility] [address] [id number] [address] [place] [address], [place] [address] Aug, [facility] [address] [id number] [address] [place] [address], [place] [address] Aug, [facility] [address] [id number] [address] [place] [address], [place] [address] Jul, [facility] [address] [id number] [address] [place] [address], [place] [address] Jul, [facility] [address] [id number] [address] [place] [address], [place] [address] Jul, [facility] [address] [id number] [address] [place] [address], [place] [address] Jul, [facility] [address] [id number] [address] [place] [address], [place] [address] Jul, [facility] [address] [id number] [address] [place] [address], [place] [address] Jul, [facility] [address] [id number] [address] [place] [address], [place] [address] Jul, [facility] [address] [id number] [address] [place] [address], [place] [address] Jul, [facility] [address] [id number] [address] [place] [address], [place] [address] Jul, [facility] [address] [id number] [address] [place] [address], [place] [address] Jun, [facility] [address] [id number] [address] [place] [address], [place] [address] 14 Jun, 2013 [facility] [address] [id number] [address] [place] [address], [place] [address] 13 Jun, 2013 [facility] [address] [id number] [address] [place] [address], [place] [address] 13 Jun, 2013 [facility] [address] [id number] [address] [place] [address], [place] [address] 07 Jun, 2013 [facility] [address] [id number] [address] [place] [address], [place] [address] 07 Jun, 2013 [facility] [address] [id number] [address] [place] [address], [place] [address] 31 May, 2013 [facility] [address] [id number] [address] [place] [address], [place] [address] 31 May, 2013 [facility] [address] [id number] [address] [place] [address] 17 May, 2013 [facility] [address] [id number] [address] [place] [address], [place] [address] 17 May, 2013 [facility] [address] [id number] [address] [place] [address] 14 May, 2013 [facility] [address] [id number] [address] [place] [address] 14 May, 2013 [facility] [address] [id number] [address] [place] [address] 10 May, 2013 [facility] [address] [id number] [address] [place] [address], [place] [address] 10 May, 2013 [facility] [address] [id number] [address] [place] [address] 07 May, 2013 [facility] [address] [id number] [address] [place] [address], [place] [address] 20 Apr, 2013 [facility] [address] [id number] [address] [place] [address], [place] [address] 19 Sep, 2012 [facility] [address] [id number] [address] [place] [address], [place] [address] 12 Sep, 2012 [facility] [address] [id number] [address] [place] [address], [place] [address] 24 Sep, 2011 [facility] [address] [address] [id number] [address] [place] [address], [place] [address] 21 Sep, 2011 [facility] [address] [id number] [address] [place] [address], [place] [address] 21 Sep, 2011 [facility] [address] [id number] [address] [place] [address], [place] [address] 14 Apr, 2011 [facility] [address] [id number] [address] [place] [address], [place] [address] 10 Apr, 2011 [facility] [address] [id number] [address] [place] [address], [place] [address] 06 Apr, 2011 [facility] [address] [id number] [address] [place] [address], [place] [address] 04 Apr, 2011 [facility] [address] [id number] [address] [place] [address], [place] [address] 31 Mar, 2012 [facility] [address] [id number] [address] [place] [address], [place] [address] 28 Mar, 2012 [facility] [address] [id number] [address] [place] [address], [place] [address] 27 Mar, 2012 [facility] [address] [id number] [address] [place] [address], [place] [address] 10 Mar, 2012 [facility] [address] [id number] [address] [place] [address], [place] [address] 08 Mar, 2012 [facility] [address] [id number] [address] [place] [address], [place] [address] 03 Mar, 2012 [facility] [address] [id number] [address] [place] [address], [place] [address] 20 Feb, 2012 [facility] [address] [id number] [address] [place] [address], [place] [address] 10 Feb, 2012 [facility] [address] [id number] [address] [place] [address], [place] [address] Feb, [facility] [address] [id number] [address] [place] [address], [place] [address] Jan, [facility] [address] [id number] [address] [place] [address], [place] [address] Jan, [facility] [address] [id number] [address] [place] [address], [place] [address] Jan, [facility] [address] [id number] [address] [place] [address], [place] [address] Jan, [facility] [address] [id number] [address] [place] [address], [place] [address] Jan, [facility] [address] [id number] [address] [place] [address], [place] [address] Jan, [facility] [address] [id number] [address] [place] [address], [place] [address] Jan, [facility] [address] [id number] [address] [place] [address], [place] [address] Jan, [facility] [address] [id number] [address] [place] [address], [place] [address] December, [facility] [address] [id number] [address] [place] [address], [place] [address] December, [facility] [address] [id number] [address] [place] [address], [place] [address] December, [facility] [address] [id number] [address] [place] [address], [place] [address] December, [facility] [address] [id number] [address] [place] [address], [place] [address] December, [facility] [address] [id number] [address] [place] [address], [place] [address] December, [facility] [address] [id number] [address] [place] [address], [place] [address] 13 Nov, 2011 [facility] [address] [id number] [address] [place] [address], [place] [address] 13 Nov, 2011 [facility] [address] [id number] [address] [place] [address], [place] [address] 13 Nov, 2011 [facility] [address] [id number] [address] [place] [address], [place] [address] 13 Nov, 2011 [facility] [address] [id number] [address] [place] [address], [place] [address] Nov, [facility] [address] [id number] [address] [place] [address], [place] [address] 15 Oct, 2011 [facility] [address] [id number] [address] [place] [address], [place] [address] 17 Sep, 2011 [facility] [address] [id number] [address] [place] [address], [place] [address] Aug, [facility] [address] [id number] [address] [place] [address], [place] [address] Aug, [facility] [address] [id number] [address] [place] [address], [place] [address] Aug, [facility] [address] [id number] [address] [place] [address], [place] [address] Aug, [facility] [address] [id number] [address] [place] [address], [place] [address] Aug, [facility] [address] [id number] [address] [place] [address], [place] [address] Jul, [facility] [address] [id number] [address] [place] [address], [place] [address] Jul, [facility] [address] [id number] [address] [place] [address], [place] [address] Jun, [facility] [address] [id number] [address] [place] [address], [place] [address] 04 Jun, 2011 [facility] [address] [id number] [address] [place] [address], [place] [address] Jun, [facility] [address] [id number] [address] [place] [address], [place] [address] 18 May, 2011 [facility] [address] [id number] [address] [place] [address], [place] [address] May, [facility] [address] [id number] [address] [place] [address], [place] [address] 16 Oct, 2010 [facility] [address] [id number] [address] [place] [address], [place] [address] Oct, [facility] [address] [id number] [address] [place] [address], [place] [address] Jul, [facility] [address] [id number] [address] [place] [address], [place] [address] 08 Jul, 2010 [facility] [address] [id number] [address] [place] [address], [place] [address] Jul, [facility] [address] [id number] [address] [place] [address], [place] [address] Jul, [facility] [address] [id number] [address] [place] [address], [place] [address] Jul, [facility] [address] [id number] [address] [place] [address], [place] [address] Jun, [facility] [address] [id number] [address] [place] [address], [place] [address] Jun, [facility] [address] [id number] [address] [place] [address], [place] [address] Jun, [facility] [address] [id number] [address] [place] [address], [place] [address] May, [facility] [address] [id number] [address] [place] [address] 16 Mar, 2010 IMMUNIZATIONS No Known Immunizations SOCIAL HISTORY Never Assessed REASON FOR VISIT EMR-[facility] [place] PLAN OF CARE VITAL SIGNS MEDICATIONS Unknown [...]
--- OUTSIDE RECORDS SUMMARY | 2019-11-28 22:56 | XMS REPORT ---
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 Name Role Phone Migration, Doctor Unavailable Unavailable PROBLEMS Type Condition ICD9-CM Code [id number] Code Onset Dates Condition S tatus SNOMED Code Problem COPD (chronic obstructive pulmonary disease) J44.9 Active 85960483 Problem Diabetes E11.9 Active 02113220 Problem Diabetic neuropathy E11.40 Active 006342471 Problem Arthritis M19.90 Active 6512119 ALLERGIES No Information ENCOUNTERS Encounter Location Date Diagnosis [facility] [address] [id number] [address] [place] [phone] December, [facility] [address] [id number] [address] [place] [address] Aug, Arthritis M19.90 [facility] [address] [id number] [address] [place] [phone] Jul, [facility] [address] [id number] [address] [place] [phone] Jul, [facility] [address] [facility] [id number] [address] [place] [phone] Jul, [facility] [address] [id number] [address] [place] [phone] Jul, [facility] [address] [id number] [address] [place] [phone] Jul, Diabetes E11.9 ; Diabetic ne uropathy E11.40 ; Arthritis M19.90 and COPD (chronic obstructive pulmonary disease) J44.9 [facility] [address] [id number] [address] [place] [phone] Jul, [facility] [address] [facility] [id number] [address] [place] [phone] Jun, [facility] [address] [id number] [address] [place] [address], [place] [address] Jun, [facility] [address] [id number] [address] [place] [address], [place] [address] 17 Jun, 2015 [facility] [address] [id number] [address] [place] [address], [place] [address] 10 Jun, 2015 [facility] [address] [id number] [address] [place] [address], [place] [address] 15 May, 2015 [facility] [address] [id number] [address] [place] [address], [place] [address] 13 May, 2015 [facility] [address] [id number] [address] [place] [address], [place] [address] 07 May, 2015 [facility] [address] [id number] [address] [place] [address], [place] [address] 22 Apr, 2014 [facility] [address] [id number] [address] [place] [address], [place] [address] 21 Sep, 2014 [facility] [address] [id number] [address] [place] [address], [place] [address] 21 Sep, 2014 [facility] [address] [id number] [address] [place] [phone] 15 Apr, 2014 [facility] [address] [id number] [address] [place] [address] 11 Sep, 2014 [facility] [address] [id number] [address] [place] [phone] 09 Sep, 2014 [facility] [address] [id number] [address] [place] [address] 08 Sep, 2014 [facility] [address] [id number] [address] [place] [phone] 03 Sep, 2014 [facility] [address] [id number] [address] [place] [phone] 02 Sep, 2014 [facility] [address] [id number] [address] [place] [phone] Mar, [facility] [address] [facility] [id number] [address] [place] [phone] Mar, [facility] [address] [facility] [id number] [address] [place] [phone] Mar, [facility] [address] [facility] [id number] [address] [place] [phone] Mar, [facility] [address] [facility] [id number] [address] [place] [phone] Mar, [facility] [address] [facility] [id number] [address] [place] [address] Mar, Diabetes mellitus 250.00 ; C OPD (chronic obstructive pulmonary disease) 496 ; Anxiety 300.00 and Arthritis 716.90 [facility] [address] [facility] [id number] [address] [place] [phone] Feb, [facility] [address] [facility] [id number] [address] [place] [phone] Feb, [facility] [address] [facility] [id number] [address] [place] [phone] Feb, [facility] [address] [facility] [id number] [address] [place] [phone] Feb, [facility] [address] [facility] [id number] [address] [place] [address] Jan, Seborrheic keratosis 702.19 and Nevus 216.9 [facility] [address] [facility] [id number] [address] [place] [phone] Jan, [facility] [address] [facility] [id number] [address] [place] [address] Jan, Routine gynecological examin ation V72.31 ; Breast cancer screening V76.10 ; Hot flashes 627.2 ; Atypical nevi 216.9 and Constipation 564.00 [facility] [address] [facility] [id number] [address] [place] [phone] Jan, [facility] [address] [id number] [address] [place] [address], [place] [address] December, [facility] [address] [id number] [address] [place] [address], [place] [address] December, [facility] [address] [id number] [address] [place] [address], [place] [address] 14 Nov, 2014 [facility] [address] [id number] [address] [place] [address], [place] [address] Nov, [facility] [address] [id number] [address] [place] [address], [place] [address] 23 Oct, 2014 [facility] [address] [id number] [address] [place] [address], [place] [address] 23 Oct, 2014 [facility] [address] [id number] [address] [place] [address], [place] [address] 18 Oct, 2014 [facility] [address] [id number] [address] [place] [address], [place] [address] 18 Oct, 2014 [facility] [address] [id number] [address] [place] [address], [place] [address] 17 Oct, 2014 [facility] [address] [id number] [address] [place] [address], [place] [address] 17 Oct, 2014 [facility] [address] [id number] [address] [place] [address], [place] [address] 16 Oct, 2014 [facility] [address] [id number] [address] [place] [address], [place] [address] 16 Oct, 2014 [facility] [address] [id number] [address] [place] [address], [place] [address] 11 Oct, 2014 [facility] [address] [id number] [address] [place] [address], [place] [address] Oct, [facility] [address] [id number] [address] [place] [address], [place] [address] Sep, [facility] [address] [id number] [address] [place] [address], [place] [address] 27 Sep, 2014 [facility] [address] [id number] [address] [place] [address], [place] [address] Sep, 2014 [facility] [address] [id number] [address] [place] [address], [place] [address] Sep, 2014 [facility] [address] [id number] [address] [place] [address], [place] [address] Sep, 2014 [facility] [address] [id number] [address] [place] [address], [place] [address] Sep, [facility] [address] [id number] [address] [place] [address], [place] [address] Sep, [facility] [address] [id number] [address] [place] [address], [place] [address] Aug, [facility] [address] [id number] [address] [place] [address], [place] [address] Aug, [facility] [address] [id number] [address] [place] [address], [place] [address] Aug, [facility] [address] [id number] [address] [place] [address], [place] [address] Aug, [facility] [address] [id number] [address] [place] [address], [place] [address] Aug, [facility] [address] [id number] [address] [place] [address], [place] [address] Aug, [facility] [address] [id number] [address] [place] [address], [place] [address] Jul, [facility] [address] [id number] [address] [place] [address], [place] [address] Jul, [facility] [address] [id number] [address] [place] [address], [place] [address] Jul, [facility] [address] [id number] [address] [place] [address], [place] [address] Jul, [facility] [address] [id number] [address] [place] [address], [place] [address] Jul, [facility] [address] [id number] [address] [place] [address], [place] [address] Jun, [facility] [address] [id number] [address] [place] [address], [place] [address] Jun, [facility] [address] [id number] [address] [place] [address], [place] [address] Jun, [facility] [address] [id number] [address] [place] [address], [place] [address] Jun, [facility] [address] [id number] [address] [place] [address], [place] [address] Jun, [facility] [address] [id number] [address] [place] [address], [place] [address] Jun, [facility] [address] [id number] [address] [place] [address], [place] [address] May, [facility] [address] [id number] [address] [place] [address], [place] [address] May, [facility] [address] [id number] [address] [place] [address], [place] [address] May, [facility] [address] [id number] [address] [place] [address], [place] [address] May, [facility] [address] [id number] [address] [place] [address] May, [facility] [address] [id number] [address] [place] [address], [place] [address] May, [facility] [address] [id number] [address] [place] [address], [place] [address] May, [facility] [address] [id number] [address] [place] [address], [place] [address] May, [facility] [address] [id number] [facility] [place] [address] May, [facility] [address] [id number] [facility] [place] [address] Apr, [facility] [address] [id number] [address] [place] [address], [place] [address] Apr, [facility] [address] [id number] [address] [place] [address], [place] [address] Apr, [facility] [address] [id number] [address] [place] [address], [place] [address] Apr, [facility] [address] [id number] [address] [place] [address], [place] [address] Mar, [facility] [address] [id number] [address] [place] [address], [place] [address] Mar, [facility] [address] [id number] [address] [place] [address], [place] [address] Mar, [facility] [address] [id number] [address] [place] [address], [place] [address] Mar, [facility] [address] [id number] [address] [place] [address], [place] [address] Mar, [facility] [address] [id number] [address] [place] [address], [place] [address] Mar, [facility] [address] [id number] [address] [place] [address], [place] [address] Feb, [facility] [address] [id number] [address] [place] [address], [place] [address] Feb, [facility] [address] [id number] [address] [place] [address], [place] [address] Feb, [facility] [address] [id number] [address] [place] [address], [place] [address] Feb, [facility] [address] [id number] [address] [place] [address], [place] [address] Feb, [facility] [address] [id number] [address] [place] [address], [place] [address] Feb, [facility] [address] [id number] [address] [place] [address], [place] [address] Feb, [facility] [address] [id number] [address] [place] [address], [place] [address] Feb, 2013 [facility] [address] [id number] [address] [place] [address], [place] [address] Feb, [facility] [address] [id number] [address] [place] [address], [place] [address] Feb, [facility] [address] [id number] [address] [place] [address], [place] [address] Feb, [facility] [address] [id number] [address] [place] [address], [place] [address] Feb, [facility] [address] [id number] [address] [place] [address], [place] [address] Jan, [facility] [address] [id number] [address] [place] [address], [place] [address] Jan, [facility] [address] [id number] [address] [place] [address], [place] [address] Jan, [facility] [address] [id number] [address] [place] [address], [place] [address] Jan, [facility] [address] [id number] [address] [place] [address], [place] [address] Jan, [facility] [address] [id number] [address] [place] [address], [place] [address] Jan, [facility] [address] [id number] [address] [place] [address], [place] [address] Jan, [facility] [address] [id number] [address] [place] [address], [place] [address] Jan, [facility] [address] [id number] [address] [place] [address], [place] [address] Jan, [facility] [address] [id number] [address] [place] [address], [place] [address] Jan, [facility] [address] [id number] [address] [place] [address], [place] [address] Jan, [facility] [address] [id number] [address] [place] [address], [place] [address] Jan, [facility] [address] [id number] [address] [place] [address], [place] [address] Jan, [facility] [address] [id number] [address] [place] [address], [place] [address] Jan, [facility] [address] [id number] [address] [place] [address], [place] [address] Jan, [facility] [address] [id number] [address] [place] [address], [place] [address] Jan, [facility] [address] [id number] [address] [place] [address], [place] [address] Jan, [facility] [address] [id number] [address] [place] [address], [place] [address] December, [facility] [address] [id number] [address] [place] [address], [place] [address] December, [facility] [address] [id number] [address] [place] [address], [place] [address] December, [facility] [address] [id number] [address] [place] [address], [place] [address] December, [facility] [address] [id number] [address] [place] [address], [place] [address] December, [facility] [address] [id number] [address] [place] [address], [place] [address] December, [facility] [address] [id number] [address] [place] [address], [place] [address] Nov, [facility] [address] [id number] [address] [place] [address] Nov, [facility] [address] [id number] [address] [place] [address], [place] [address] Nov, [facility] [address] [id number] [address] [place] [address], [place] [address] Nov, [facility] [address] [id number] [address] [place] [address], [place] [address] Nov, [facility] [address] [id number] [address] [place] [address], [place] [address] Nov, [facility] [address] [id number] [address] [place] [address], [place] [address] Nov, [facility] [address] [id number] [address] [place] [address], [place] [address] Nov, [facility] [address] [id number] [address] [place] [address], [place] [address] Nov, [facility] [address] [id number] [address] [place] [address], [place] [address] Nov, [facility] [address] [id number] [address] [place] [address], [place] [address] Nov, [facility] [address] [id number] [address] [place] [address], [place] [address] Nov, [facility] [address] [id number] [address] [place] [address], [place] [address] Nov, [facility] [address] [id number] [address] [place] [address], [place] [address] Nov, [facility] [address] [id number] [address] [place] [address], [place] [address] Nov, [facility] [address] [id number] [address] [place] [address], [place] [address] Nov, [facility] [address] [id number] [address] [place] [address], [place] [address] Oct, [facility] [address] [id number] [address] [place] [address] Oct, [facility] [address] [id number] [address] [place] [address], [place] [address] Oct, [facility] [address] [id number] [address] [place] [address], [place] [address] Oct, [facility] [address] [id number] [address] [place] [address], [place] [address] Oct, [facility] [address] [id number] [address] [place] [address], [place] [address] Oct, [facility] [address] [id number] [address] [place] [address], [place] [address] Oct, [facility] [address] [id number] [address] [place] [address], [place] [address] Oct, [facility] [address] [id number] [address] [place] [address], [place] [address] Sep, [facility] [address] [id number] [address] [place] [address], [place] [address] Sep, [facility] [address] [id number] [address] [place] [address], [place] [address] Sep, [facility] [address] [id number] [address] [place] [address], [place] [address] Sep, [facility] [address] [id number] [address] [place] [address], [place] [address] Sep, [facility] [address] [id number] [address] [place] [address], [place] [address] Sep, [facility] [address] [id number] [address] [place] [address], [place] [address] Aug, [facility] [address] [id number] [address] [place] [address], [place] [address] Aug, [facility] [address] [id number] [address] [place] [address], [place] [address] Aug, [facility] [address] [id number] [address] [place] [address], [place] [address] Aug, [facility] [address] [id number] [address] [place] [address], [place] [address] Aug, [facility] [address] [id number] [address] [place] [address], [place] [address] Aug, [facility] [address] [id number] [address] [place] [address], [place] [address] Aug, [facility] [address] [id number] [address] [place] [address], [place] [address] Aug, [facility] [address] [id number] [address] [place] [address], [place] [address] Jul, [facility] [address] [id number] [address] [place] [address], [place] [address] Jul, [facility] [address] [id number] [address] [place] [address], [place] [address] Jul, [facility] [address] [id number] [address] [place] [address], [place] [address] Jul, [facility] [address] [id number] [address] [place] [address], [place] [address] Jul, [facility] [address] [id number] [address] [place] [address], [place] [address] Jul, [facility] [address] [id number] [address] [place] [address], [place] [address] Jul, [facility] [address] [id number] [address] [place] [address], [place] [address] Jul, [facility] [address] [id number] [address] [place] [address], [place] [address] Jul, [facility] [address] [id number] [address] [place] [address], [place] [address] Jun, [facility] [address] [id number] [address] [place] [address], [place] [address] 14 Jun, 2013 [facility] [address] [id number] [address] [place] [address], [place] [address] 13 Jun, 2013 [facility] [address] [id number] [address] [place] [address], [place] [address] 13 Jun, 2013 [facility] [address] [id number] [address] [place] [address], [place] [address] 07 Jun, 2013 [facility] [address] [id number] [address] [place] [address], [place] [address] 07 Jun, 2013 [facility] [address] [id number] [address] [place] [address], [place] [address] 31 May, 2013 [facility] [address] [id number] [address] [place] [address], [place] [address] 31 May, 2013 [facility] [address] [id number] [address] [place] [id number] 17 May, 2013 [facility] [address] [id number] [address] [place] [address], [place] [address] 17 May, 2013 [facility] [address] [id number] [address] [place] [id number] 14 May, 2013 [facility] [address] [id number] [address] [place] [address] 14 May, 2013 [facility] [address] [id number] [address] [place] [id number] 10 May, 2013 [facility] [address] [id number] [address] [place] [address], [place] [address] 10 May, 2013 [facility] [address] [id number] [address] [place] [id number] 07 May, 2013 [facility] [address] [id number] [address] [place] [address], [place] [address] 20 Apr, 2013 [facility] [address] [id number] [address] [place] [address], [place] [address] 19 Sep, 2012 [facility] [address] [id number] [address] [place] [address], [place] [address] 12 Sep, 2012 [facility] [address] [id number] [address] [place] [address], [place] [address] 24 Sep, 2011 [facility] [address] [id number] [address] [place] [address], [place] [address] 21 Sep, 2011 [facility] [address] [id number] [address] [place] [address], [place] [address] 21 Sep, 2011 [facility] [address] [id number] [address] [place] [address], [place] [address] 14 Apr, 2011 [facility] [address] [id number] [address] [place] [address], [place] [address] 10 Apr, 2011 [facility] [address] [id number] [address] [place] [address], [place] [address] 06 Apr, 2011 [facility] [address] [id number] [address] [place] [address], [place] [address] 04 Apr, 2011 [facility] [address] [id number] [address] [place] [address], [place] [address] 31 Mar, 2012 [facility] [address] [id number] [address] [place] [address], [place] [address] 28 Mar, 2012 [facility] [address] [id number] [address] [place] [address], [place] [address] 27 Mar, 2012 [facility] [address] [id number] [address] [place] [address], [place] [address] 10 Mar, 2012 [facility] [address] [id number] [address] [place] [address], [place] [address] 08 Mar, 2012 [facility] [address] [id number] [address] [place] [address], [place] [address] 03 Mar, 2012 [facility] [address] [id number] [address] [place] [address], [place] [address] 20 Feb, 2012 [facility] [address] [id number] [address] [place] [address], [place] [address] 10 Feb, 2012 [facility] [address] [id number] [address] [place] [address], [place] [address] Feb, [facility] [address] [id number] [address] [place] [address], [place] [address] Jan, [facility] [address] [id number] [address] [place] [address], [place] [address] Jan, [facility] [address] [id number] [address] [place] [address], [place] [address] Jan, [facility] [address] [id number] [address] [place] [address], [place] [address] Jan, [facility] [address] [id number] [address] [place] [address], [place] [address] Jan, [facility] [address] [id number] [address] [place] [address], [place] [address] Jan, [facility] [address] [id number] [address] [place] [address], [place] [address] Jan, [facility] [address] [id number] [address] [place] [address], [place] [address] Jan, [facility] [address] [id number] [address] [place] [address], [place] [address] December, [facility] [address] [id number] [address] [place] [address], [place] [address] December, [facility] [address] [id number] [address] [place] [address], [place] [address] December, [facility] [address] [id number] [address] [place] [address], [place] [address] December, [facility] [address] [id number] [address] [place] [address], [place] [address] December, [facility] [address] [id number] [address] [place] [address], [place] [address] December, [facility] [address] [id number] [address] [place] [address], [place] [address] 13 Nov, 2011 [facility] [address] [id number] [address] [place] [address], [place] [address] 13 Nov, 2011 [facility] [address] [id number] [address] [place] [address], [place] [address] 13 Nov, 2011 [facility] [address] [id number] [address] [place] [address], [place] [address] 13 Nov, 2011 [facility] [address] [id number] [address] [place] [address], [place] [address] Nov, [facility] [address] [id number] [address] [place] [address], [place] [address] 15 Oct, 2011 [facility] [address] [id number] [address] [place] [address], [place] [address] 17 Sep, 2011 [facility] [address] [id number] [address] [place] [address], [place] [address] Aug, [facility] [address] [id number] [address] [place] [address], [place] [address] Aug, [facility] [address] [id number] [address] [place] [address], [place] [address] Aug, [facility] [address] [id number] [address] [place] [address], [place] [address] Aug, [facility] [address] [id number] [address] [place] [address], [place] [address] Aug, [facility] [address] [id number] [address] [place] [address], [place] [address] Jul, [facility] [address] [id number] [address] [place] [address], [place] [address] Jul, [facility] [address] [id number] [address] [place] [address], [place] [address] Jun, [facility] [address] [id number] [address] [place] [address], [place] [address] 04 Jun, 2011 [facility] [address] [id number] [address] [place] [address], [place] [address] Jun, [facility] [address] [id number] [address] [place] [address], [place] [address] 18 May, 2011 [facility] [address] [id number] [address] [place] [address], [place] [address] May, [facility] [address] [id number] [address] [place] [address], [place] [address] 16 Oct, 2010 [facility] [address] [id number] [address] [place] [address], [place] [address] Oct, [facility] [address] [id number] [address] [place] [address], [place] [address] Jul, [facility] [address] [id number] [address] [place] [address], [place] [address] 08 Jul, 2010 [facility] [address] [id number] [address] [place] [address], [place] [address] Jul, [facility] [address] [id number] [address] [place] [address], [place] [address] Jul, [facility] [address] [id number] [address] [place] [address], [place] [address] Jul, [facility] [address] [id number] [address] [place] [address], [place] [address] Jun, [facility] [address] [id number] [address] [place] [address], [place] [address] Jun, [facility] [address] [id number] [address] [place] [address], [place] [address] Jun, [facility] [address] [id number] [address] [place] [address], [place] [address] May, [facility] [address] [id number] [address] [place] [address] 16 Mar, 2010 IMMUNIZATIONS No Known Immunizations SOCIAL HISTORY Never Assessed REASON FOR VISIT [place] [place] VITAL SIGNS MEDICATIONS Unknown [...]
--- OUTSIDE RECORDS SUMMARY | 2019-11-28 22:57 | XMS REPORT ---
Author Author Caren Barba Doctor Organization [facility] Address Unknown Phone Unavailable Care Team Providers Care Subsorter Name Role Phone Migration, Doctor Unavailable Unavailable PROBLEMS Type Condition ICD9-CM Code IPP36-MK Code Onset Dates Condition S tatus SNOMED Code Problem COPD (chronic obstructive pulmonary disease) J44.9 Active 59066462 Problem Diabetes E11.9 Active 77723148 Problem Diabetic neuropathy E11.40 Active 096655534 Problem Arthritis M19.90 Active 3907454 ALLERGIES No Information ENCOUNTERS Encounter Location Date Diagnosis [facility] [address] [id number] [address] [place] [address] December, [facility] [address] [id number] [address] [place] [address] Aug, Arthritis M19.90 [facility] [address] [id number] [address] [place] [address] Jul, [facility] [address] [id number] [address] [place] [address] Jul, [facility] [address] [facility] [id number] [address] [place] [address] Jul, [facility] [address] [id number] [address] [place] [address] Jul, [facility] [address] [id number] [address] [place] [address] Jul, Diabetes E11.9 ; Diabetic ne uropathy E11.40 ; Arthritis M19.90 and COPD (chronic obstructive pulmonary disease) J44.9 [facility] [address] [id number] [address] [place] [address] Jul, [facility] [address] [facility] [id number] [address] [place] [address] Jun, [facility] [address] [id number] [address] [place] [address], [place] [address] Jun, [facility] [address] [id number] [address] [place] [address], [place] [address] 17 Jun, 2015 [facility] [address] [id number] [address] [place] [address], [place] [address] 10 Jun, 2015 [facility] [address] [id number] [address] [place] [address], [place] [address] 15 May, 2015 [facility] [address] [id number] [address] [place] [address], [place] [address] 13 May, 2015 [facility] [address] [id number] [address] [place] [address], [place] [address] 07 May, 2015 [facility] [address] [id number] [address] [place] [address], [place] [address] 22 Apr, 2014 [facility] [address] [id number] [address] [place] [address], [place] [address] 21 Sep, 2014 [facility] [address] [id number] [address] [place] [address], [place] [address] 21 Sep, 2014 [facility] [address] [id number] [address] [place] [address] 15 Apr, 2014 [facility] [address] [id number] [address] [place] [address] 11 Sep, 2014 [facility] [address] [id number] [address] [place] [address] 09 Sep, 2014 [facility] [address] [id number] [address] [place] [address] 08 Sep, 2014 [facility] [address] [id number] [address] [place] [address] 03 Sep, 2014 [facility] [address] [id number] [address] [place] [address] 02 Sep, 2014 [facility] [address] [id number] [address] [place] [address] Mar, [facility] [address] [facility] [id number] [address] [place] [address] Mar, [facility] [address] [facility] [id number] [address] [place] [address] Mar, [facility] [address] [facility] [id number] [address] [place] [address] Mar, [facility] [address] [facility] [id number] [address] [place] [address] Mar, [facility] [address] [facility] [id number] [address] [place] [address] Mar, Diabetes mellitus 250.00 ; C OPD (chronic obstructive pulmonary disease) 496 ; Anxiety 300.00 and Arthritis 716.90 [facility] [address] [facility] [id number] [address] [place] [address] Feb, [facility] [address] [facility] [id number] [address] [place] [address] Feb, [facility] [address] [facility] [id number] [address] [place] [address] Feb, [facility] [address] [facility] [id number] [address] [place] [address] Feb, [facility] [address] [facility] [id number] [address] [place] [address] Jan, Seborrheic keratosis 702.19 and Nevus 216.9 [facility] [address] [facility] [id number] [address] [place] [address] Jan, [facility] [address] [facility] [id number] [address] [place] [address] Jan, Routine gynecological examin ation V72.31 ; Breast cancer screening V76.10 ; Hot flashes 627.2 ; Atypical nevi 216.9 and Constipation 564.00 [facility] [address] [facility] [id number] [address] [place] [phone] Jan, [facility] [address] [id number] [address] [place] [address], [place] [address] December, [facility] [address] [id number] [address] [place] [address], [place] [address] December, [facility] [address] [id number] [address] [place] [address], [place] [address] 14 Nov, 2014 [facility] [address] [id number] [address] [place] [address], [place] [address] Nov, [facility] [address] [id number] [address] [place] [address], [place] [address] 23 Oct, 2014 [facility] [address] [id number] [address] [place] [address], [place] [address] 23 Oct, 2014 [facility] [address] [id number] [address] [place] [address], [place] [address] 18 Oct, 2014 [facility] [address] [id number] [address] [place] [address], [place] [address] 18 Oct, 2014 [facility] [address] [id number] [address] [place] [address], [place] [address] 17 Oct, 2014 [facility] [address] [id number] [address] [place] [address], [place] [address] 17 Oct, 2014 [facility] [address] [id number] [address] [place] [address], [place] [address] 16 Oct, 2014 [facility] [address] [id number] [address] [place] [address], [place] [address] 16 Oct, 2014 [facility] [address] [id number] [address] [place] [address], [place] [address] 11 Oct, 2014 [facility] [address] [id number] [address] [place] [address], [place] [address] Oct, [facility] [address] [id number] [address] [place] [address], [place] [address] Sep, [facility] [address] [id number] [address] [place] [address], [place] [address] 27 Sep, 2014 [facility] [address] [id number] [address] [place] [address], [place] [address] Sep, 2014 [facility] [address] [id number] [address] [place] [address], [place] [address] Sep, 2014 [facility] [address] [id number] [address] [place] [address], [place] [address] Sep, 2014 [facility] [address] [id number] [address] [place] [address], [place] [address] Sep, [facility] [address] [id number] [address] [place] [address], [place] [address] Sep, [facility] [address] [id number] [address] [place] [address], [place] [address] Aug, [facility] [address] [id number] [address] [place] [address], [place] [address] Aug, [facility] [address] [id number] [address] [place] [address], [place] [address] Aug, [facility] [address] [id number] [address] [place] [address], [place] [address] Aug, [facility] [address] [id number] [address] [place] [address], [place] [address] Aug, [facility] [address] [id number] [address] [place] [address], [place] [address] Aug, [facility] [address] [id number] [address] [place] [address], [place] [address] Jul, [facility] [address] [id number] [address] [place] [address], [place] [address] Jul, [facility] [address] [id number] [address] [place] [address], [place] [address] Jul, [facility] [address] [id number] [address] [place] [address], [place] [address] Jul, [facility] [address] [id number] [address] [place] [address], [place] [address] Jul, [facility] [address] [id number] [address] [place] [address], [place] [address] Jun, [facility] [address] [id number] [address] [place] [address], [place] [address] Jun, [facility] [address] [id number] [address] [place] [address], [place] [address] Jun, [facility] [address] [id number] [address] [place] [address], [place] [address] Jun, [facility] [address] [id number] [address] [place] [address], [place] [address] Jun, [facility] [address] [id number] [address] [place] [address], [place] [address] Jun, [facility] [address] [id number] [address] [place] [address], [place] [address] May, [facility] [address] [id number] [address] [place] [address], [place] [address] May, [facility] [address] [id number] [address] [place] [address], [place] [address] May, [facility] [address] [id number] [address] [place] [address], [place] [address] May, [facility] [address] [id number] [address] [place] [address] May, [facility] [address] [id number] [address] [place] [address], [place] [address] May, [facility] [address] [id number] [address] [place] [address], [place] [address] May, [facility] [address] [id number] [address] [place] [address], [place] [address] May, [facility] [address] [id number] [facility] [place] [address] May, [facility] [address] [id number] [facility] [place] [address] Apr, [facility] [address] [id number] [address] [place] [address], [place] [address] Apr, [facility] [address] [id number] [address] [place] [address], [place] [address] Apr, [facility] [address] [id number] [address] [place] [address], [place] [address] Apr, [facility] [address] [id number] [address] [place] [address], [place] [address] Mar, [facility] [address] [id number] [address] [place] [address], [place] [address] Mar, [facility] [address] [id number] [address] [place] [address], [place] [address] Mar, [facility] [address] [id number] [address] [place] [address], [place] [address] Mar, [facility] [address] [id number] [address] [place] [address], [place] [address] Mar, [facility] [address] [id number] [address] [place] [address], [place] [address] Mar, [facility] [address] [id number] [address] [place] [address], [place] [address] Feb, [facility] [address] [id number] [address] [place] [address], [place] [address] Feb, [facility] [address] [id number] [address] [place] [address], [place] [address] Feb, [facility] [address] [id number] [address] [place] [address], [place] [address] Feb, [facility] [address] [id number] [address] [place] [address], [place] [address] Feb, [facility] [address] [id number] [address] [place] [address], [place] [address] Feb, [facility] [address] [id number] [address] [place] [address], [place] [address] Feb, [facility] [address] [id number] [address] [place] [address], [place] [address] Feb, 2013 [facility] [address] [id number] [address] [place] [address], [place] [address] Feb, [facility] [address] [id number] [address] [place] [address], [place] [address] Feb, [facility] [address] [id number] [address] [place] [address], [place] [address] Feb, [facility] [address] [id number] [address] [place] [address], [place] [address] Feb, [facility] [address] [id number] [address] [place] [address], [place] [address] Jan, [facility] [address] [id number] [address] [place] [address], [place] [address] Jan, [facility] [address] [id number] [address] [place] [address], [place] [address] Jan, [facility] [address] [id number] [address] [place] [address], [place] [address] Jan, [facility] [address] [id number] [address] [place] [address], [place] [address] Jan, [facility] [address] [id number] [address] [place] [address], [place] [address] Jan, [facility] [address] [id number] [address] [place] [address], [place] [address] Jan, [facility] [address] [id number] [address] [place] [address], [place] [address] Jan, [facility] [address] [id number] [address] [place] [address], [place] [address] Jan, [facility] [address] [id number] [address] [place] [address], [place] [address] Jan, [facility] [address] [id number] [address] [place] [address], [place] [address] Jan, [facility] [address] [id number] [address] [place] [address], [place] [address] Jan, [facility] [address] [id number] [address] [place] [address], [place] [address] Jan, [facility] [address] [id number] [address] [place] [address], [place] [address] Jan, [facility] [address] [id number] [address] [place] [address], [place] [address] Jan, [facility] [address] [id number] [address] [place] [address], [place] [address] Jan, [facility] [address] [id number] [address] [place] [address], [place] [address] Jan, [facility] [address] [id number] [address] [place] [address], [place] [address] December, [facility] [address] [id number] [address] [place] [address], [place] [address] December, [facility] [address] [id number] [address] [place] [address], [place] [address] December, [facility] [address] [id number] [address] [place] [address], [place] [address] December, [facility] [address] [id number] [address] [place] [address], [place] [address] December, [facility] [address] [id number] [address] [place] [address], [place] [address] December, [facility] [address] [id number] [address] [place] [address], [place] [address] Nov, [facility] [address] [id number] [facility] [place] [address] Nov, [facility] [address] [id number] [address] [place] [address], [place] [address] Nov, [facility] [address] [id number] [address] [place] [address], [place] [address] Nov, [facility] [address] [id number] [address] [place] [address], [place] [address] Nov, [facility] [address] [id number] [address] [place] [address], [place] [address] Nov, [facility] [address] [id number] [address] [place] [address], [place] [address] Nov, [facility] [address] [id number] [address] [place] [address], [place] [address] Nov, [facility] [address] [id number] [address] [place] [address], [place] [address] Nov, [facility] [address] [id number] [address] [place] [address], [place] [address] Nov, [facility] [address] [id number] [address] [place] [address], [place] [address] Nov, [facility] [address] [id number] [address] [place] [address], [place] [address] Nov, [facility] [address] [id number] [address] [place] [address], [place] [address] Nov, [facility] [address] [id number] [address] [place] [address], [place] [address] Nov, [facility] [address] [id number] [address] [place] [address], [place] [address] Nov, [facility] [address] [id number] [address] [place] [address], [place] [address] Nov, [facility] [address] [id number] [address] [place] [address], [place] [address] Oct, [facility] [address] [id number] [facility] [place] [address] Oct, [facility] [address] [id number] [address] [place] [address], [place] [address] Oct, [facility] [address] [id number] [address] [place] [address], [place] [address] Oct, [facility] [address] [id number] [address] [place] [address], [place] [address] Oct, [facility] [address] [id number] [address] [place] [address], [place] [address] Oct, [facility] [address] [id number] [address] [place] [address], [place] [address] Oct, [facility] [address] [id number] [address] [place] [address], [place] [address] Oct, [facility] [address] [id number] [address] [place] [address], [place] [address] Sep, [facility] [address] [id number] [address] [place] [address], [place] [address] Sep, [facility] [address] [id number] [address] [place] [address], [place] [address] Sep, [facility] [address] [id number] [address] [place] [address], [place] [address] Sep, [facility] [address] [id number] [address] [place] [address], [place] [address] Sep, [facility] [address] [id number] [address] [place] [address], [place] [address] Sep, [facility] [address] [id number] [address] [place] [address], [place] [address] Aug, [facility] [address] [id number] [address] [place] [address], [place] [address] Aug, [facility] [address] [id number] [address] [place] [address], [place] [address] Aug, [facility] [address] [id number] [address] [place] [address], [place] [address] Aug, [facility] [address] [id number] [address] [place] [address], [place] [address] Aug, [facility] [address] [id number] [address] [place] [address], [place] [address] Aug, [facility] [address] [id number] [address] [place] [address], [place] [address] Aug, [facility] [address] [id number] [address] [place] [address], [place] [address] Aug, [facility] [address] [id number] [address] [place] [address], [place] [address] Jul, [facility] [address] [id number] [address] [place] [address], [place] [address] Jul, [facility] [address] [id number] [address] [place] [address], [place] [address] Jul, [facility] [address] [id number] [address] [place] [address], [place] [address] Jul, [facility] [address] [id number] [address] [place] [address], [place] [address] Jul, [facility] [address] [id number] [address] [place] [address], [place] [address] Jul, [facility] [address] [id number] [address] [place] [address], [place] [address] Jul, [facility] [address] [id number] [address] [place] [address], [place] [address] Jul, [facility] [address] [id number] [address] [place] [address], [place] [address] Jul, [facility] [address] [id number] [address] [place] [address], [place] [address] Jun, [facility] [address] [id number] [address] [place] [address], [place] [address] 14 Jun, 2013 [facility] [address] [id number] [address] [place] [address], [place] [address] 13 Jun, 2013 [facility] [address] [id number] [address] [place] [address], [place] [address] 13 Jun, 2013 [facility] [address] [id number] [address] [place] [address], [place] [address] 07 Jun, 2013 [facility] [address] [id number] [address] [place] [address], [place] [address] 07 Jun, 2013 [facility] [address] [id number] [address] [place] [address], [place] [address] 31 May, 2013 [facility] [address] [id number] [address] [place] [address], [place] [address] 31 May, 2013 [facility] [address] [id number] [address] [place] [address] 17 May, 2013 [facility] [address] [id number] [address] [place] [address], [place] [address] 17 May, 2013 [facility] [address] [id number] [address] [place] [address] 14 May, 2013 [facility] [address] [id number] [address] [place] [id number] 14 May, 2013 [facility] [address] [id number] [address] [place] [id number] 10 May, 2013 [facility] [address] [id number] [address] [place] [address], [place] [address] 10 May, 2013 [facility] [address] [id number] [address] [place] [id number] 07 May, 2013 [facility] [address] [id number] [address] [place] [address], [place] [address] 20 Apr, 2013 [facility] [address] [id number] [address] [place] [address], [place] [address] 19 Sep, 2012 [facility] [address] [id number] [address] [place] [address], [place] [address] 12 Sep, 2012 [facility] [address] [id number] [address] [place] [address], [place] [address] 24 Sep, 2011 [facility] [address] [id number] [address] [place] [address], [place] [address] 21 Sep, 2011 [facility] [address] [id number] [address] [place] [address], [place] [address] 21 Sep, 2011 [facility] [address] [id number] [address] [place] [address], [place] [address] 14 Apr, 2011 [facility] [address] [id number] [address] [place] [address], [place] [address] 10 Apr, 2011 [facility] [address] [id number] [address] [place] [address], [place] [address] 06 Apr, 2011 [facility] [address] [id number] [address] [place] [address], [place] [address] 04 Apr, 2011 [facility] [address] [id number] [address] [place] [address], [place] [address] 31 Mar, 2012 [facility] [address] [id number] [address] [place] [address], [place] [address] 28 Mar, 2012 [facility] [address] [id number] [address] [place] [address], [place] [address] 27 Mar, 2012 [facility] [address] [id number] [address] [place] [address], [place] [address] 10 Mar, 2012 [facility] [address] [id number] [address] [place] [address], [place] [address] 08 Mar, 2012 [facility] [address] [id number] [address] [place] [address], [place] [address] 03 Mar, 2012 [facility] [address] [id number] [address] [place] [address], [place] [address] 20 Feb, 2012 [facility] [address] [id number] [address] [place] [address], [place] [address] 10 Feb, 2012 [facility] [address] [id number] [address] [place] [address], [place] [address] Feb, [facility] [address] [id number] [address] [place] [address], [place] [address] Jan, [facility] [address] [id number] [address] [place] [address], [place] [address] Jan, [facility] [address] [id number] [address] [place] [address], [place] [address] Jan, [facility] [address] [id number] [address] [place] [address], [place] [address] Jan, [facility] [address] [id number] [address] [place] [address], [place] [address] Jan, [facility] [address] [id number] [address] [place] [address], [place] [address] Jan, [facility] [address] [id number] [address] [place] [address], [place] [address] Jan, [facility] [address] [id number] [address] [place] [address], [place] [address] Jan, [facility] [address] [id number] [address] [place] [address], [place] [address] December, [facility] [address] [id number] [address] [place] [address], [place] [address] December, [facility] [address] [id number] [address] [place] [address], [place] [address] December, [facility] [address] [id number] [address] [place] [address], [place] [address] December, [facility] [address] [id number] [address] [place] [address], [place] [address] December, [facility] [address] [id number] [address] [place] [address], [place] [address] December, [facility] [address] [id number] [address] [place] [address], [place] [address] 13 Nov, 2011 [facility] [address] [id number] [address] [place] [address], [place] [address] 13 Nov, 2011 [facility] [address] [id number] [address] [place] [address], [place] [address] 13 Nov, 2011 [facility] [address] [id number] [address] [place] [address], [place] [address] 13 Nov, 2011 [facility] [address] [id number] [address] [place] [address], [place] [address] Nov, [facility] [address] [id number] [address] [place] [address], [place] [address] 15 Oct, 2011 [facility] [address] [id number] [address] [place] [address], [place] [address] 17 Sep, 2011 [facility] [address] [id number] [address] [place] [address], [place] [address] Aug, [facility] [address] [id number] [address] [place] [address], [place] [address] Aug, [facility] [address] [id number] [address] [place] [address], [place] [address] Aug, [facility] [address] [id number] [address] [place] [address], [place] [address] Aug, [facility] [address] [id number] [address] [place] [address], [place] [address] Aug, [facility] [address] [id number] [address] [place] [address], [place] [address] Jul, [facility] [address] [id number] [address] [place] [address], [place] [address] Jul, [facility] [address] [id number] [address] [place] [address], [place] [address] Jun, [facility] [address] [id number] [address] [place] [address], [place] [address] 04 Jun, 2011 [facility] [address] [id number] [address] [place] [address], [place] [address] Jun, [facility] [address] [id number] [address] [place] [address], [place] [address] 18 May, 2011 [facility] [address] [id number] [address] [place] [address], [place] [address] May, [facility] [address] [id number] [address] [place] [address], [place] [address] 16 Oct, 2010 [facility] [address] [id number] [address] [place] [address], [place] [address] Oct, [facility] [address] [id number] [address] [place] [address], [place] [address] Jul, [facility] [address] [id number] [address] [place] [address], [place] [address] 08 Jul, 2010 [facility] [address] [id number] [address] [place] [address], [place] [address] Jul, [facility] [address] [id number] [address] [place] [address], [place] [address] Jul, [facility] [address] [id number] [address] [place] [address], [place] [address] Jul, [facility] [address] [id number] [address] [place] [address], [place] [address] Jun, [facility] [address] [id number] [address] [place] [address], [place] [address] Jun, [facility] [address] [id number] [address] [place] [address], [place] [address] Jun, [facility] [address] [id number] [address] [place] [address], [place] [address] May, [facility] [address] [id number] [address] [place] [address] 16 Mar, 2010 IMMUNIZATIONS No Known Immunizations SOCIAL HISTORY Never Assessed REASON FOR VISIT EMR-[facility] PLAN OF CARE VITAL SIGNS MEDICATIONS [...]
--- OUTSIDE RECORDS SUMMARY | 2019-11-28 22:57 | XMS REPORT ---
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 Name Role Phone LAURIE LYLE Unavailable PROBLEMS Type Condition ICD9-CM Code [id number] Code Onset Dates Condition S tatus SNOMED Code Problem COPD (chronic obstructive pulmonary disease) J44.9 Active 98702081 Problem Diabetes E11.9 Active 10415888 Problem Diabetic neuropathy E11.40 Active 498697465 Problem Arthritis M19.90 Active 9800116 ALLERGIES No Information ENCOUNTERS Encounter Location Date Diagnosis [place] [address] [address] December, [facility] [address] [address] Aug, Arthritis M19.90 [facility] [address] [address] Jul, [facility] [address] [address] Jul, [facility] [address] [address] Jul, [facility] [address] [address] Jul, [facility] [address] [address] Jul, Diabetes E11.9 ; Diabetic neuropathy E11 .40 ; Arthritis M19.90 and COPD (chronic obstructive pulmonary disease) J44.9 [facility] [address] [address] Jul, [facility] [address] [address] Jun, 2014 [facility] [address] [facility] [id number] [place] [address] 23 Jun, 2014 [facility] [address] [id number] [place] [address] 17 Jun, 2014 [facility] [address] [id number] [place] [address] 10 Jun, 2014 [facility] [address] [id number] [place] [address] 15 May, 2015 [facility] [address] [facility] [id number] [place] [address] 13 May, 2015 [facility] [address] [id number] [place] [address] 07 May, 2014 [facility] [address] [id number] [place] [address] 22 Sep, 2014 [facility] [address] [id number] [place] [address] 21 Sep, 2014 [facility] [address] [id number] [place] [address] 21 Sep, 2014 [facility] [address] [id number] [place] [address] 15 Sep, 2014 [facility] [address] [id number] [place] [address] 11 Sep, 2014 [facility] [address] [id number] [place] [address] 09 Sep, 2014 [facility] [address] [id number] [place] [address] 08 Sep, 2014 [facility] [address] [id number] [place] [address] 03 Sep, 2014 [facility] [address] [id number] [place] [address] 02 Sep, 2014 [facility] [address] [id number] [place] [address] 31 Mar, 2014 [facility] [address] [place] [id number] [place] [address] Mar, [facility] [address] [address] Mar, [facility] [address] [address] Mar, [facility] [address] [address] Mar, [facility] [address] [address] Mar, Diabetes mellitus 250.00 ; COPD (chronic obstructive pulmonary disease) 496 ; Anxiety 300.00 and Arthritis 716.90 [facility] [address] [address] Feb, [facility] [address] [address] Feb, [facility] [address] [address] Feb, [facility] [address] [address] Feb, [facility] [address] [address] Jan, Seborrheic keratosis 702.19 and Nevus 21 6.9 [facility] [address] [address] Jan, [facility] [address] [address] Jan, Routine gynecological examination V72.31 ; Breast cancer screening V76.10 ; Hot flashes 627.2 ; Atypical nevi 216.9 and Constipation 564.00 [facility] [address] [address] Jan, [facility] [address] [address] December, [facility] [address] [address] 05 Dec, 2014 [facility] [address] [facility] [id number] [facility] [address] 14 Nov, 2014 [facility] [address] [facility] [id number] [facility] [address] 13 Nov, 2014 [facility] [address] [id number] [place] [address] 23 Oct, 2014 [facility] [address] [facility] [id number] [place] [address] 23 Oct, 2014 [facility] [address] [facility] [id number] [place] [address] 18 Oct, 2014 [facility] [address] [id number] [place] [address] 18 Oct, 2014 [facility] [address] [id number] [place] [address] 17 Oct, 2014 [facility] [address] [id number] [place] [address] 17 Oct, 2014 [facility] [address] [id number] [place] [address] 16 Oct, 2014 [facility] [address] [id number] [place] [address] 16 Oct, 2014 [facility] [address] [id number] [place] [address] 11 Oct, 2014 [facility] [address] [id number] [place] [address] Oct, [facility] [address] [facility] [id number] [place] [address] Sep, [facility] [address] [id number] [place] [address] Sep, [facility] [address] [id number] [place] [address] 19 Sep, 2014 [facility] [address] [id number] [place] [address] 18 Sep, 2014 [facility] [address] [id number] [place] [address] 18 Sep, 2014 [facility] [address] [id number] [place] [address] Sep, [facility] [address] [id number] [place] [address] Sep, [facility] [address] [id number] [place] [address] Aug, [facility] [address] [id number] [place] [address] Aug, [facility] [address] [id number] [place] [address] Aug, [facility] [address] [id number] [place] [address] Aug, [facility] [address] [id number] [place] [address] Aug, [facility] [address] [id number] [place] [address] Aug, [facility] [address] [id number] [place] [address] Jul, [facility] [address] [id number] [place] [address] Jul, [facility] [address] [id number] [place] [address] Jul, [facility] [address] [id number] [place] [address] Jul, [facility] [address] [id number] [place] [address] 08 Jul, 2014 [facility] [address] [id number] [place] [address] Jun, [facility] [address] [id number] [place] [address] Jun, [facility] [address] [id number] [place] [address] Jun, [facility] [address] [id number] [place] [address] Jun, [facility] [address] [id number] [place] [address] Jun, [facility] [address] [id number] [place] [address] Jun, [facility] [address] [id number] [place] [address] May, [facility] [address] [id number] [place] [address] May, [facility] [address] [id number] [place] [address] May, [facility] [address] [id number] [place] [address] May, [facility] [address] [id number] [place] [address] May, [facility] [address] [id number] [place] [address] May, [facility] [address] [id number] [place] [address] May, [facility] [address] [id number] [place] [address] May, [facility] [address] [id number] [place] [address] May, [facility] [address] [id number] [place] [address] Apr, 2013 [facility] [address] [id number] [place] [address] Apr, 2013 [facility] [address] [id number] [place] [address] Apr, 2013 [facility] [address] [id number] [place] [address] Apr, 2013 [facility] [address] [id number] [facility] [address] Mar, [facility] [address] [id number] [facility] [address] Mar, [facility] [address] [facility] [id number] [facility] [address] Mar, [facility] [address] [facility] [id number] [facility] [address] Mar, [facility] [address] [facility] [id number] [facility] [place] [address] Mar, [facility] [address] [facility] [id number] [facility] [place] [address] Mar, [facility] [address] [facility] [id number] [place] [address] Feb, [facility] [address] [id number] [place] [address] Feb, [facility] [address] [id number] [place] [address] Feb, [facility] [address] [facility] [id number] [facility] [place] [address] Feb, [facility] [address] [facility] [id number] [place] [address] Feb, [facility] [address] [id number] [place] [address] Feb, [facility] [address] [facility] [id number] [place] [address] Feb, [facility] [address] [facility] [id number] [place] [address] Feb, [facility] [address] [id number] [place] [address] Feb, [facility] [address] [facility] [id number] [place] [address] Feb, [facility] [address] [id number] [place] [address] Feb, [facility] [address] [id number] [place] [address] Feb, 2013 [facility] [address] [id number] [place] [address] Jan, [facility] [address] [id number] [place] [address] Jan, [facility] [address] [id number] [place] [address] Jan, [facility] [address] [facility] [id number] [place] [address] Jan, [facility] [address] [id number] [place] [address] Jan, [facility] [address] [id number] [place] [address] Jan, [facility] [address] [id number] [place] [address] Jan, [facility] [address] [id number] [place] [address] Jan, [facility] [address] [id number] [place] [address] Jan, [facility] [address] [id number] [place] [address] Jan, [facility] [address] [id number] [place] [address] Jan, [facility] [address] [id number] [place] [address] Jan, [facility] [address] [id number] [place] [address] Jan, [facility] [address] [id number] [place] [address] Jan, [facility] [address] [id number] [place] [address] Jan, [facility] [address] [id number] [place] [address] Jan, [facility] [address] [id number] [facility] [address] Jan, [facility] [address] [id number] [facility] [address] December, [facility] [address] [id number] [facility] [address] December, [facility] [address] [id number] [facility] [address] December, [facility] [address] [id number] [facility] [place] [address] December, [facility] [address] [id number] [place] [address] December, [facility] [address] [id number] [place] [address] December, [facility] [address] [id number] [place] [address] Nov, [facility] [address] [id number] [facility] [place] [address] Nov, [facility] [address] [id number] [place] [address] Nov, [facility] [address] [id number] [place] [address] Nov, [facility] [address] [id number] [place] [address] Nov, [facility] [address] [id number] [place] [address] Nov, [facility] [address] [id number] [place] [address] Nov, [facility] [address] [id number] [place] [address] Nov, [facility] [address] [id number] [place] [address] Nov, [facility] [address] [id number] [facility] [address] 07 Nov, 2013 [facility] [address] [facility] [id number] [place] [address] Nov, [facility] [address] [facility] [id number] [place] [address] Nov, [facility] [address] [id number] [place] [address] Nov, [facility] [address] [facility] [id number] [place] [address] Nov, [facility] [address] [facility] [id number] [place] [address] Nov, [facility] [address] [id number] [place] [address] Nov, [facility] [address] [id number] [place] [address] Oct, [facility] [address] [id number] [place] [address] Oct, [facility] [address] [facility] [id number] [place] [address] Oct, [facility] [address] [id number] [place] [address] Oct, [facility] [address] [id number] [place] [address] Oct, [facility] [address] [id number] [place] [address] Oct, [facility] [address] [facility] [id number] [place] [address] Oct, [facility] [address] [id number] [place] [address] Oct, [facility] [address] [id number] [place] [address] Sep, [facility] [address] [id number] [place] [address] Sep, [facility] [address] [id number] [place] [address] Sep, [facility] [address] [id number] [place] [address] Sep, [facility] [address] [id number] [place] [address] Sep, [facility] [address] [id number] [place] [address] Sep, [facility] [address] [id number] [place] [address] Aug, [facility] [address] [id number] [place] [address] Aug, [facility] [address] [id number] [place] [address] Aug, [facility] [address] [id number] [place] [address] Aug, [facility] [address] [id number] [place] [address] Aug, [facility] [address] [id number] [place] [address] Aug, [facility] [address] [id number] [place] [address] Aug, [facility] [address] [id number] [place] [address] Aug, [facility] [address] [id number] [place] [address] Jul, [facility] [address] [id number] [place] [address] Jul, [facility] [address] [id number] [place] [address] Jul, [facility] [address] [id number] [place] [address] Jul, [facility] [address] [id number] [place] [address] 30 Jul, 2012 [facility] [address] [id number] [place] [address] 30 Jul, 2013 [facility] [address] [id number] [place] [address] Jul, [facility] [address] [id number] [place] [address] Jul, [facility] [address] [id number] [place] [address] Jul, [facility] [address] [id number] [place] [address] 14 Jun, 2013 [facility] [address] [id number] [place] [address] 14 Jun, 2013 [facility] [id number] [place] [address] Jun, [facility] [id number] [place] [address] Jun, [facility] [address] [id number] [place] [address] Jun, [facility] [address] [id number] [place] [address] 07 Jun, 2013 [facility] [address] [id number] [place] [address] 31 May, 2013 [facility] [address] [id number] [place] [address] 31 May, 2013 [facility] [address] [id number] [place] [address] 17 May, 2013 [facility] [id number] [place] [address] 17 May, 2013 [facility] [address] [id number] [place] [address] 14 May, 2013 [facility] [address] [id number] [place] [address] 14 May, 2013 [facility] [address] [id number] [place] [address] 10 May, 2012 [facility] [address] [id number] [place] [address] 10 May, 2012 [facility] [address] [id number] [place] [address] 07 May, 2012 [facility] [address] [id number] [place] [address] 20 Sep, 2012 [facility] [address] [id number] [place] [address] 19 Sep, 2012 [facility] [address] [id number] [place] [address] 12 Apr, 2012 [facility] [address] [id number] [place] [address] 24 Sep, 2011 [facility] [address] [id number] [place] [address] 21 Sep, 2011 [facility] [address] [id number] [place] [address] 21 Sep, 2011 [facility] [address] [id number] [place] [address] 14 Sep, 2011 [facility] [address] [id number] [place] [address] 10 Sep, 2011 [facility] [address] [id number] [place] [address] 06 Sep, 2011 [facility] [address] [id number] [place] [address] 04 Sep, 2011 [facility] [address] [id number] [place] [address] 31 Mar, 2011 [facility] [address] [id number] [place] [address] 28 Mar, 2011 [facility] [address] [id number] [place] [address] 27 Mar, 2011 [facility] [address] [id number] [place] [address] Mar, [facility] [address] [facility] [id number] [place] [address] Mar, [facility] [address] [facility] [id number] [facility] [address] Mar, [facility] [address] [id number] [place] [address] Feb, [facility] [address] [id number] [place] [address] Feb, [facility] [address] [facility] [id number] [facility] [address] Feb, [facility] [address] [id number] [place] [address] Jan, [facility] [address] [id number] [place] [address] Jan, [facility] [address] [id number] [place] [address] Jan, [facility] [address] [id number] [place] [address] Jan, [facility] [address] [id number] [place] [address] Jan, [facility] [address] [id number] [place] [address] Jan, [facility] [address] [id number] [place] [address] Jan, [facility] [address] [id number] [place] [address] Jan, [facility] [address] [id number] [place] [address] December, [facility] [address] [facility] [id number] [place] [address] December, [facility] [place] [facility] [address] [id number] [place] [address] December, [facility] [place] [facility] [address] [id number] [place] [address] December, [facility] [place] [facility] [id number] [place] [address] December, [facility] [place] [facility] [address] [id number] [place] [address] December, [facility] [place] [facility] [address] [id number] [place] [address] 13 Nov, 2011 [facility] [place] [facility] [address] [id number] [place] [address] 13 Nov, 2011 [facility] [place] [facility] [address] [id number] [place] [address] Nov, [facility] [place] [facility] [address] [id number] [place] [address] 13 Nov, 2011 [facility] [place] [facility] [address] [id number] [place] [address] Nov, [facility] [place] [facility] [address] [id number] [place] [address] Oct, [facility] [place] [facility] [address] [id number] [place] [address] Sep, [facility] [place] [facility] [address] [id number] [place] [address] Aug, [facility] [place] [facility] [address] [id number] [place] [address] Aug, [facility] [place] [facility] [address] [id number] [place] [address] Aug, [facility] [place] [facility] [address] [id number] [place] [address] Aug, [facility] [place] [facility] [address] [id number] [place] [address] Aug, [facility] [place] [facility] [address] [id number] [place] [address] Jul, [facility] [place] [facility] [address] [id number] [place] [address] Jul, [facility] [place] [facility] [address] [id number] [place] [address] 28 Jun, 2011 [facility] [place] [facility] [address] [id number] [place] [address] 04 Jun, 2011 [facility] [place] [facility] [address] [id number] [place] [address] Jun, [facility] [place] [facility] [address] [id number] [place] [address] May, [facility] [place] [facility] [address] [id number] [place] [address] May, [facility] [place] [facility] [address] [id number] [place] [address] 16 Oct, 2010 [facility] [place] [facility] [address] [id number] [place] [address] Oct, [facility] [place] [facility] [address] [id number] [place] [address] 29 Jul, 2010 [facility] [place] [facility] [address] [id number] [place] [address] 08 Jul, 2010 [facility] [place] [facility] [address] [id number] [place] [address] Jul, [facility] [place] [facility] [address] [id number] [place] [address] Jul, [facility] [place] [facility] [address] [id number] [place] [address] Jul, [facility] [place] [facility] [address] [id number] [place] [address] Jun, [facility] [place] [facility] [address] [id number] [place] [address] Jun, [facility] [place] [facility] [address] [id number] [place] [address] Jun, [facility] [place] [facility] [address] [id number] [place] [address] May, [facility] [place] [facility] [address] [id number] [place] [address] 16 Mar, 2010 IMMUNIZATIONS No Known Immunizations [...]
--- OUTSIDE RECORDS SUMMARY | 2019-11-28 22:57 | XMS REPORT ---
Author Author Caren Barba Doctor Organization [facility] Address Unknown Phone Unavailable Care Team Providers Care Firm Administrator Name Role Phone Migration, Doctor Unavailable Unavailable PROBLEMS Type Condition ICD9-CM Code UPT67-CT Code Onset Dates Condition S tatus SNOMED Code Problem COPD (chronic obstructive pulmonary disease) J44.9 Active 13208126 Problem Diabetes E11.9 Active 07704438 Problem Diabetic neuropathy E11.40 Active 166487964 Problem Arthritis M19.90 Active 0120150 ALLERGIES No Information ENCOUNTERS Encounter Location Date Diagnosis [facility] [address] [id number] [address] [place] [id number] December, [facility] [address] [id number] [address] [place] [id number] Aug, Arthritis M19.90 [facility] [address] [id number] [address] [place] [phone] Jul, [facility] [address] [id number] [address] [place] [id number] Jul, [facility] [address] [facility] [id number] [address] [place] [id number] Jul, [facility] [address] [id number] [address] [place] [id number] Jul, [facility] [address] [id number] [address] [place] [phone] Jul, Diabetes E11.9 ; Diabetic ne uropathy E11.40 ; Arthritis M19.90 and COPD (chronic obstructive pulmonary disease) J44.9 [facility] [address] [id number] [address] [place] [id number] Jul, [facility] [address] [facility] [id number] [address] [place] [id number] Jun, [facility] [address] [id number] [address] [place] [address], [place] [address] Jun, [facility] [address] [id number] [address] [place] [address], [place] [address] 17 Jun, 2015 [facility] [address] [id number] [address] [place] [address], [place] [address] 10 Jun, 2015 [facility] [address] [id number] [address] [place] [address], [place] [address] 15 May, 2015 [facility] [address] [id number] [address] [place] [address], [place] [address] 13 May, 2015 [facility] [address] [id number] [address] [place] [address], [place] [address] 07 May, 2015 [facility] [address] [id number] [address] [place] [address], [place] [address] 22 Apr, 2014 [facility] [address] [id number] [address] [place] [address], [place] [address] 21 Sep, 2014 [facility] [address] [id number] [address] [place] [address], [place] [address] 21 Sep, 2014 [facility] [address] [id number] [address] [place] [address] 15 Apr, 2014 [facility] [address] [id number] [address] [place] [id number] 11 Sep, 2014 [facility] [address] [id number] [address] [place] [id number] 09 Sep, 2014 [facility] [address] [id number] [address] [place] [id number] 08 Sep, 2014 [facility] [address] [id number] [address] [place] [id number] 03 Sep, 2014 [facility] [address] [id number] [address] [place] [id number] 02 Sep, 2014 [facility] [address] [id number] [address] [place] [id number] Mar, [facility] [address] [facility] [id number] [address] [place] [id number] Mar, [facility] [address] [facility] [id number] [address] [place] [id number] Mar, [facility] [address] [facility] [id number] [address] [place] [id number] Mar, [facility] [address] [facility] [id number] [address] [place] [id number] Mar, [facility] [address] [facility] [id number] [address] [place] [id number] Mar, Diabetes mellitus 250.00 ; C OPD (chronic obstructive pulmonary disease) 496 ; Anxiety 300.00 and Arthritis 716.90 [facility] [address] [facility] [id number] [address] [place] [id number] Feb, [facility] [address] [facility] [id number] [address] [place] [id number] Feb, [facility] [address] [facility] [id number] [address] [place] [id number] Feb, [facility] [address] [facility] [id number] [address] [place] [id number] Feb, [facility] [address] [facility] [id number] [address] [place] [id number] Jan, Seborrheic keratosis 702.19 and Nevus 216.9 [facility] [address] [facility] [id number] [address] [place] [id number] Jan, [facility] [address] [facility] [id number] [address] [place] [id number] Jan, Routine gynecological examin ation V72.31 ; Breast cancer screening V76.10 ; Hot flashes 627.2 ; Atypical nevi 216.9 and Constipation 564.00 [facility] [address] [facility] [id number] [address] [place] [id number] Jan, [facility] [address] [id number] [address] [place] [address], [place] [address] December, [facility] [address] [id number] [address] [place] [address], [place] [address] December, [facility] [address] [id number] [address] [place] [address], [place] [address] 14 Nov, 2014 [facility] [address] [id number] [address] [place] [address], [place] [address] Nov, [facility] [address] [id number] [address] [place] [address], [place] [address] 23 Oct, 2014 [facility] [address] [id number] [address] [place] [address], [place] [address] 23 Oct, 2014 [facility] [address] [id number] [address] [place] [address], [place] [address] 18 Oct, 2014 [facility] [address] [id number] [address] [place] [address], [place] [address] 18 Oct, 2014 [facility] [address] [id number] [address] [place] [address], [place] [address] 17 Oct, 2014 [facility] [address] [id number] [address] [place] [address], [place] [address] 17 Oct, 2014 [facility] [address] [id number] [address] [place] [address], [place] [address] 16 Oct, 2014 [facility] [address] [id number] [address] [place] [address], [place] [address] 16 Oct, 2014 [facility] [address] [id number] [address] [place] [address], [place] [address] 11 Oct, 2014 [facility] [address] [id number] [address] [place] [address], [place] [address] Oct, [facility] [address] [id number] [address] [place] [address], [place] [address] Sep, [facility] [address] [id number] [address] [place] [address], [place] [address] 27 Sep, 2014 [facility] [address] [id number] [address] [place] [address], [place] [address] Sep, 2014 [facility] [address] [id number] [address] [place] [address], [place] [address] Sep, 2014 [facility] [address] [id number] [address] [place] [address], [place] [address] Sep, 2014 [facility] [address] [id number] [address] [place] [address], [place] [address] Sep, [facility] [address] [id number] [address] [place] [address], [place] [address] Sep, [facility] [address] [id number] [address] [place] [address], [place] [address] Aug, [facility] [address] [id number] [address] [place] [address], [place] [address] Aug, [facility] [address] [id number] [address] [place] [address], [place] [address] Aug, [facility] [address] [id number] [address] [place] [address], [place] [address] Aug, [facility] [address] [id number] [address] [place] [address], [place] [address] Aug, [facility] [address] [id number] [address] [place] [address], [place] [address] Aug, [facility] [address] [id number] [address] [place] [address], [place] [address] Jul, [facility] [address] [id number] [address] [place] [address], [place] [address] Jul, [facility] [address] [id number] [address] [place] [address], [place] [address] Jul, [facility] [address] [id number] [address] [place] [address], [place] [address] Jul, [facility] [address] [id number] [address] [place] [address], [place] [address] Jul, [facility] [address] [id number] [address] [place] [address], [place] [address] Jun, [facility] [address] [id number] [address] [place] [address], [place] [address] Jun, [facility] [address] [id number] [address] [place] [address], [place] [address] Jun, [facility] [address] [id number] [address] [place] [address], [place] [address] Jun, [facility] [address] [id number] [address] [place] [address], [place] [address] Jun, [facility] [address] [id number] [address] [place] [address], [place] [address] Jun, [facility] [address] [id number] [address] [place] [address], [place] [address] May, [facility] [address] [id number] [address] [place] [address], [place] [address] May, [facility] [address] [id number] [address] [place] [address], [place] [address] May, [facility] [address] [id number] [address] [place] [address], [place] [address] May, [facility] [address] [id number] [address] [place] [address] May, [facility] [address] [id number] [address] [place] [address], [place] [address] May, [facility] [address] [id number] [address] [place] [address], [place] [address] May, [facility] [address] [id number] [address] [place] [address], [place] [address] May, [facility] [address] [id number] [facility] [place] [address] May, [facility] [address] [id number] [facility] [place] [place] [address] Apr, [facility] [address] [id number] [address] [place] [address], [place] [address] Apr, [facility] [address] [id number] [address] [place] [address], [place] [address] Apr, [facility] [address] [id number] [address] [place] [address], [place] [address] Apr, [facility] [address] [id number] [address] [place] [address], [place] [address] Mar, [facility] [address] [id number] [address] [place] [address], [place] [address] Mar, [facility] [address] [id number] [address] [place] [address], [place] [address] Mar, [facility] [address] [id number] [address] [place] [address], [place] [address] Mar, [facility] [address] [id number] [address] [place] [address], [place] [address] Mar, [facility] [address] [id number] [address] [place] [address], [place] [address] Mar, [facility] [address] [id number] [address] [place] [address], [place] [address] Feb, [facility] [address] [id number] [address] [place] [address], [place] [address] Feb, [facility] [address] [id number] [address] [place] [address], [place] [address] Feb, [facility] [address] [id number] [address] [place] [address], [place] [address] Feb, [facility] [address] [id number] [address] [place] [address], [place] [address] Feb, [facility] [address] [id number] [address] [place] [address], [place] [address] Feb, [facility] [address] [id number] [address] [place] [address], [place] [address] Feb, [facility] [address] [id number] [address] [place] [address], [place] [address] Feb, 2013 [facility] [address] [id number] [address] [place] [address], [place] [address] Feb, [facility] [address] [id number] [address] [place] [address], [place] [address] Feb, [facility] [address] [id number] [address] [place] [address], [place] [address] Feb, [facility] [address] [id number] [address] [place] [address], [place] [address] Feb, [facility] [address] [id number] [address] [place] [address], [place] [address] Jan, [facility] [address] [id number] [address] [place] [address], [place] [address] Jan, [facility] [address] [id number] [address] [place] [address], [place] [address] Jan, [facility] [address] [id number] [address] [place] [address], [place] [address] Jan, [facility] [address] [id number] [address] [place] [address], [place] [address] Jan, [facility] [address] [id number] [address] [place] [address], [place] [address] Jan, [facility] [address] [id number] [address] [place] [address], [place] [address] Jan, [facility] [address] [id number] [address] [place] [address], [place] [address] Jan, [facility] [address] [id number] [address] [place] [address], [place] [address] Jan, [facility] [address] [id number] [address] [place] [address], [place] [address] Jan, [facility] [address] [id number] [address] [place] [address], [place] [address] Jan, [facility] [address] [id number] [address] [place] [address], [place] [address] Jan, [facility] [address] [id number] [address] [place] [address], [place] [address] Jan, [facility] [address] [id number] [address] [place] [address], [place] [address] Jan, [facility] [address] [id number] [address] [place] [address], [place] [address] Jan, [facility] [address] [id number] [address] [place] [address], [place] [address] Jan, [facility] [address] [id number] [address] [place] [address], [place] [address] Jan, [facility] [address] [id number] [address] [place] [address], [place] [address] December, [facility] [address] [id number] [address] [place] [address], [place] [address] December, [facility] [address] [id number] [address] [place] [address], [place] [address] December, [facility] [address] [id number] [address] [place] [address], [place] [address] December, [facility] [address] [id number] [address] [place] [address], [place] [address] December, [facility] [address] [id number] [address] [place] [address], [place] [address] December, [facility] [address] [id number] [address] [place] [address], [place] [address] Nov, [facility] [address] [id number] [facility] [place] [address] Nov, [facility] [address] [id number] [address] [place] [address], [place] [address] Nov, [facility] [address] [id number] [address] [place] [address], [place] [address] Nov, [facility] [address] [id number] [address] [place] [address], [place] [address] Nov, [facility] [address] [id number] [address] [place] [address], [place] [address] Nov, [facility] [address] [id number] [address] [place] [address], [place] [address] Nov, [facility] [address] [id number] [address] [place] [address], [place] [address] Nov, [facility] [address] [id number] [address] [place] [address], [place] [address] Nov, [facility] [address] [id number] [address] [place] [address], [place] [address] Nov, [facility] [address] [id number] [address] [place] [address], [place] [address] Nov, [facility] [address] [id number] [address] [place] [address], [place] [address] Nov, [facility] [address] [id number] [address] [place] [address], [place] [address] Nov, [facility] [address] [id number] [address] [place] [address], [place] [address] Nov, [facility] [address] [id number] [address] [place] [address], [place] [address] Nov, [facility] [address] [id number] [address] [place] [address], [place] [address] Nov, [facility] [address] [id number] [address] [place] [address], [place] [address] Oct, [facility] [address] [id number] [facility] [place] [place] [address] Oct, [facility] [address] [id number] [address] [place] [address], [place] [address] Oct, [facility] [address] [id number] [address] [place] [address], [place] [address] Oct, [facility] [address] [id number] [address] [place] [address], [place] [address] Oct, [facility] [address] [id number] [address] [place] [address], [place] [address] Oct, [facility] [address] [id number] [address] [place] [address], [place] [address] Oct, [facility] [address] [id number] [address] [place] [address], [place] [address] Oct, [facility] [address] [id number] [address] [place] [address], [place] [address] Sep, [facility] [address] [id number] [address] [place] [address], [place] [address] Sep, [facility] [address] [id number] [address] [place] [address], [place] [address] Sep, [facility] [address] [id number] [address] [place] [address], [place] [address] Sep, [facility] [address] [id number] [address] [place] [address], [place] [address] Sep, [facility] [address] [id number] [address] [place] [address], [place] [address] Sep, [facility] [address] [id number] [address] [place] [address], [place] [address] Aug, [facility] [address] [id number] [address] [place] [address], [place] [address] Aug, [facility] [address] [id number] [address] [place] [address], [place] [address] Aug, [facility] [address] [id number] [address] [place] [address], [place] [address] Aug, [facility] [address] [id number] [address] [place] [address], [place] [address] Aug, [facility] [address] [id number] [address] [place] [address], [place] [address] Aug, [facility] [address] [id number] [address] [place] [address], [place] [address] Aug, [facility] [address] [id number] [address] [place] [address], [place] [address] Aug, [facility] [address] [id number] [address] [place] [address], [place] [address] Jul, [facility] [address] [id number] [address] [place] [address], [place] [address] Jul, [facility] [address] [id number] [address] [place] [address], [place] [address] Jul, [facility] [address] [id number] [address] [place] [address], [place] [address] Jul, [facility] [address] [id number] [address] [place] [address], [place] [address] Jul, [facility] [address] [id number] [address] [place] [address], [place] [address] Jul, [facility] [address] [id number] [address] [place] [address], [place] [address] Jul, [facility] [address] [id number] [address] [place] [address], [place] [address] Jul, [facility] [address] [id number] [address] [place] [address], [place] [address] Jul, [facility] [address] [id number] [address] [place] [address], [place] [address] Jun, [facility] [address] [id number] [address] [place] [address], [place] [address] 14 Jun, 2013 [facility] [address] [id number] [address] [place] [address], [place] [address] 13 Jun, 2013 [facility] [address] [id number] [address] [place] [address], [place] [address] 13 Jun, 2013 [facility] [address] [id number] [address] [place] [address], [place] [address] 07 Jun, 2013 [facility] [address] [id number] [address] [place] [address], [place] [address] 07 Jun, 2013 [facility] [address] [id number] [address] [place] [address], [place] [address] 31 May, 2013 [facility] [address] [id number] [address] [place] [address], [place] [address] 31 May, 2013 [facility] [address] [id number] [address] [place] [id number] 17 May, 2013 [facility] [address] [id number] [address] [place] [address], [place] [address] 17 May, 2013 [facility] [address] [id number] [address] [place] [id number] 14 May, 2013 [facility] [address] [id number] [address] [place] [id number] 14 May, 2013 [facility] [address] [id number] [address] [place] [id number] 10 May, 2013 [facility] [address] [id number] [address] [place] [address], [place] [address] 10 May, 2013 [facility] [address] [id number] [address] [place] [id number] 07 May, 2013 [facility] [address] [id number] [address] [place] [address], [place] [address] 20 Apr, 2013 [facility] [address] [id number] [address] [place] [address], [place] [address] 19 Sep, 2012 [facility] [address] [id number] [address] [place] [address], [place] [address] 12 Sep, 2012 [facility] [address] [id number] [address] [place] [address], [place] [address] 24 Sep, 2011 [facility] [address] [id number] [address] [place] [address], [place] [address] 21 Sep, 2011 [facility] [address] [id number] [address] [place] [address], [place] [address] 21 Sep, 2011 [facility] [address] [id number] [address] [place] [address], [place] [address] 14 Apr, 2011 [facility] [address] [id number] [address] [place] [address], [place] [address] 10 Apr, 2011 [facility] [address] [id number] [address] [place] [address], [place] [address] 06 Apr, 2011 [facility] [address] [id number] [address] [place] [address], [place] [address] 04 Apr, 2011 [facility] [address] [id number] [address] [place] [address], [place] [address] 31 Mar, 2012 [facility] [address] [id number] [address] [place] [address], [place] [address] 28 Mar, 2012 [facility] [address] [id number] [address] [place] [address], [place] [address] 27 Mar, 2012 [facility] [address] [id number] [address] [place] [address], [place] [address] 10 Mar, 2012 [facility] [address] [id number] [address] [place] [address], [place] [address] 08 Mar, 2012 [facility] [address] [id number] [address] [place] [address], [place] [address] 03 Mar, 2012 [facility] [address] [id number] [address] [place] [address], [place] [address] 20 Feb, 2012 [facility] [address] [id number] [address] [place] [address], [place] [address] 10 Feb, 2012 [facility] [address] [id number] [address] [place] [address], [place] [address] Feb, [facility] [address] [id number] [address] [place] [address], [place] [address] Jan, [facility] [address] [id number] [address] [place] [address], [place] [address] Jan, [facility] [address] [id number] [address] [place] [address], [place] [address] Jan, [facility] [address] [id number] [address] [place] [address], [place] [address] Jan, [facility] [address] [id number] [address] [place] [address], [place] [address] Jan, [facility] [address] [id number] [address] [place] [address], [place] [address] Jan, [facility] [address] [id number] [address] [place] [address], [place] [address] Jan, [facility] [address] [id number] [address] [place] [address], [place] [address] Jan, [facility] [address] [id number] [address] [place] [address], [place] [address] December, [facility] [address] [id number] [address] [place] [address], [place] [address] December, [facility] [address] [id number] [address] [place] [address], [place] [address] December, [facility] [address] [id number] [address] [place] [address], [place] [address] December, [facility] [address] [id number] [address] [place] [address], [place] [address] December, [facility] [address] [id number] [address] [place] [address], [place] [address] December, [facility] [address] [id number] [address] [place] [address], [place] [address] 13 Nov, 2011 [facility] [address] [id number] [address] [place] [address], [place] [address] 13 Nov, 2011 [facility] [address] [id number] [address] [place] [address], [place] [address] 13 Nov, 2011 [facility] [address] [id number] [address] [place] [address], [place] [address] 13 Nov, 2011 [facility] [address] [id number] [address] [place] [address], [place] [address] Nov, [facility] [address] [id number] [address] [place] [address], [place] [address] 15 Oct, 2011 [facility] [address] [id number] [address] [place] [address], [place] [address] 17 Sep, 2011 [facility] [address] [id number] [address] [place] [address], [place] [address] Aug, [facility] [address] [id number] [address] [place] [address], [place] [address] Aug, [facility] [address] [id number] [address] [place] [address], [place] [address] Aug, [facility] [address] [id number] [address] [place] [address], [place] [address] Aug, [facility] [address] [id number] [address] [place] [address], [place] [address] Aug, [facility] [address] [id number] [address] [place] [address], [place] [address] Jul, [facility] [address] [id number] [address] [place] [address], [place] [address] Jul, [facility] [address] [id number] [address] [place] [address], [place] [address] Jun, [facility] [address] [id number] [address] [place] [address], [place] [address] 04 Jun, 2011 [facility] [address] [id number] [address] [place] [address], [place] [address] Jun, [facility] [address] [id number] [address] [place] [address], [place] [address] 18 May, 2011 [facility] [address] [id number] [address] [place] [address], [place] [address] May, [facility] [address] [id number] [address] [place] [address], [place] [address] 16 Oct, 2010 [facility] [address] [id number] [address] [place] [address], [place] [address] Oct, [facility] [address] [id number] [address] [place] [address], [place] [address] Jul, [facility] [address] [id number] [address] [place] [address], [place] [address] 08 Jul, 2010 [facility] [address] [id number] [address] [place] [address], [place] [address] Jul, [facility] [address] [id number] [address] [place] [address], [place] [address] Jul, [facility] [address] [id number] [address] [place] [address], [place] [address] Jul, [facility] [address] [id number] [address] [place] [address], [place] [address] Jun, [facility] [address] [id number] [address] [place] [address], [place] [address] Jun, [facility] [address] [id number] [address] [place] [address], [place] [address] Jun, [facility] [address] [id number] [address] [place] [address], [place] [address] May, [facility] [address] [id number] [address] [place] [id number] 16 Mar, 2010 IMMUNIZATIONS No Known Immunizations SOCIAL HISTORY Never Assessed REASON FOR VISIT EMR-[facility] PLAN OF CARE VITAL SIGNS MEDICATIONS Unknown [...]
--- OUTSIDE RECORDS SUMMARY | 2019-11-28 22:57 | XMS REPORT ---
Author Author Caren Barba Doctor Organization [facility] Address Unknown Phone Unavailable Care Team Providers Care Nurse Staff [facility] Name Role Phone Migration, Doctor Unavailable Unavailable PROBLEMS Type Condition ICD9-CM Code EAQ37-CT Code Onset Dates Condition S tatus SNOMED Code Problem COPD (chronic obstructive pulmonary disease) J44.9 Active 37445076 Problem Diabetes E11.9 Active 10711957 Problem Diabetic neuropathy E11.40 Active 173770832 Problem Arthritis M19.90 Active 6454582 ALLERGIES No Information ENCOUNTERS Encounter Location Date Diagnosis [facility] [address] [id number] [address] [place] [address] December, [facility] [address] [id number] [address] [place] [address] Aug, Arthritis M19.90 [facility] [address] [id number] [address] [place] [address] Jul, [facility] [address] [id number] [address] [place] [address] Jul, [facility] [address] [facility] [id number] [address] [place] [address] Jul, [facility] [address] [id number] [address] [place] [address] Jul, [facility] [address] [id number] [address] [place] [address] Jul, Diabetes E11.9 ; Diabetic ne uropathy E11.40 ; Arthritis M19.90 and COPD (chronic obstructive pulmonary disease) J44.9 [facility] [address] [id number] [address] [place] [address] Jul, [facility] [address] [facility] [id number] [address] [place] [address] Jun, [facility] [address] [id number] [address] [place] [address], [place] [address] Jun, [facility] [address] [id number] [address] [place] [address], [place] [address] 17 Jun, 2015 [facility] [address] [id number] [address] [place] [address], [place] [address] 10 Jun, 2015 [facility] [address] [id number] [address] [place] [address], [place] [address] 15 May, 2015 [facility] [address] [id number] [address] [place] [address], [place] [address] 13 May, 2015 [facility] [address] [id number] [address] [place] [address], [place] [address] 07 May, 2015 [facility] [address] [id number] [address] [place] [address], [place] [address] 22 Apr, 2014 [facility] [address] [id number] [address] [place] [address], [place] [address] 21 Sep, 2014 [facility] [address] [id number] [address] [place] [address], [place] [address] 21 Sep, 2014 [facility] [address] [id number] [address] [place] [address] 15 Apr, 2014 [facility] [address] [id number] [address] [place] [address] 11 Sep, 2014 [facility] [address] [id number] [address] [place] [address] 09 Sep, 2014 [facility] [address] [id number] [address] [place] [address] 08 Sep, 2014 [facility] [address] [id number] [address] [place] [address] 03 Sep, 2014 [facility] [address] [id number] [address] [place] [address] 02 Sep, 2014 [facility] [address] [id number] [address] [place] [address] Mar, [facility] [address] [facility] [id number] [address] [place] [address] Mar, [facility] [address] [facility] [id number] [address] [place] [address] Mar, [facility] [address] [facility] [id number] [address] [place] [address] Mar, [facility] [address] [facility] [id number] [address] [place] [address] Mar, [facility] [address] [facility] [id number] [address] [place] [address] Mar, Diabetes mellitus 250.00 ; C OPD (chronic obstructive pulmonary disease) 496 ; Anxiety 300.00 and Arthritis 716.90 [facility] [address] [facility] [id number] [address] [place] [address] Feb, [facility] [address] [facility] [id number] [address] [place] [address] Feb, [facility] [address] [facility] [id number] [address] [place] [address] Feb, [facility] [address] [facility] [id number] [address] [place] [address] Feb, [facility] [address] [facility] [id number] [address] [place] [address] Jan, Seborrheic keratosis 702.19 and Nevus 216.9 [facility] [address] [facility] [id number] [address] [place] [address] Jan, [facility] [address] [facility] [id number] [address] [place] [address] Jan, Routine gynecological examin ation V72.31 ; Breast cancer screening V76.10 ; Hot flashes 627.2 ; Atypical nevi 216.9 and Constipation 564.00 [facility] [address] [facility] [id number] [address] [place] [address] Jan, [facility] [address] [id number] [address] [place] [address], [place] [address] December, [facility] [address] [id number] [address] [place] [address], [place] [address] December, [facility] [address] [id number] [address] [place] [address], [place] [address] 14 Nov, 2014 [facility] [address] [id number] [address] [place] [address], [place] [address] Nov, [facility] [address] [id number] [address] [place] [address], [place] [address] 23 Oct, 2014 [facility] [address] [id number] [address] [place] [address], [place] [address] 23 Oct, 2014 [facility] [address] [id number] [address] [place] [address], [place] [address] 18 Oct, 2014 [facility] [address] [id number] [address] [place] [address], [place] [address] 18 Oct, 2014 [facility] [address] [id number] [address] [place] [address], [place] [address] 17 Oct, 2014 [facility] [address] [id number] [address] [place] [address], [place] [address] 17 Oct, 2014 [facility] [address] [id number] [address] [place] [address], [place] [address] 16 Oct, 2014 [facility] [address] [id number] [address] [place] [address], [place] [address] 16 Oct, 2014 [facility] [address] [id number] [address] [place] [address], [place] [address] 11 Oct, 2014 [facility] [address] [id number] [address] [place] [address], [place] [address] Oct, [facility] [address] [id number] [address] [place] [address], [place] [address] Sep, [facility] [address] [id number] [address] [place] [address], [place] [address] 27 Sep, 2014 [facility] [address] [id number] [address] [place] [address], [place] [address] Sep, 2014 [facility] [address] [id number] [address] [place] [address], [place] [address] Sep, 2014 [facility] [address] [id number] [address] [place] [address], [place] [address] Sep, 2014 [facility] [address] [id number] [address] [place] [address], [place] [address] Sep, [facility] [address] [id number] [address] [place] [address], [place] [address] Sep, [facility] [address] [id number] [address] [place] [address], [place] [address] Aug, [facility] [address] [id number] [address] [place] [address], [place] [address] Aug, [facility] [address] [id number] [address] [place] [address], [place] [address] Aug, [facility] [address] [id number] [address] [place] [address], [place] [address] Aug, [facility] [address] [id number] [address] [place] [address], [place] [address] Aug, [facility] [address] [id number] [address] [place] [address], [place] [address] Aug, [facility] [address] [id number] [address] [place] [address], [place] [address] Jul, [facility] [address] [id number] [address] [place] [address], [place] [address] Jul, [facility] [address] [id number] [address] [place] [address], [place] [address] Jul, [facility] [address] [id number] [address] [place] [address], [place] [address] Jul, [facility] [address] [id number] [address] [place] [address], [place] [address] Jul, [facility] [address] [id number] [address] [place] [address], [place] [address] Jun, [facility] [address] [id number] [address] [place] [address], [place] [address] Jun, [facility] [address] [id number] [address] [place] [address], [place] [address] Jun, [facility] [address] [id number] [address] [place] [address], [place] [address] Jun, [facility] [address] [id number] [address] [place] [address], [place] [address] Jun, [facility] [address] [id number] [address] [place] [address], [place] [address] Jun, [facility] [address] [id number] [address] [place] [address], [place] [address] May, [facility] [address] [id number] [address] [place] [address], [place] [address] May, [facility] [address] [id number] [address] [place] [address], [place] [address] May, [facility] [address] [id number] [address] [place] [address], [place] [address] May, [facility] [address] [id number] [address] [place] [address] May, [facility] [address] [id number] [address] [place] [address], [place] [address] May, [facility] [address] [id number] [address] [place] [address], [place] [address] May, [facility] [address] [id number] [address] [place] [address], [place] [address] May, [facility] [address] [id number] [facility] [place] [address] May, [facility] [address] [id number] [facility] [place] [address] Apr, [facility] [address] [id number] [address] [place] [address], [place] [address] Apr, [facility] [address] [id number] [address] [place] [address], [place] [address] Apr, [facility] [address] [id number] [address] [place] [address], [place] [address] Apr, [facility] [address] [id number] [address] [place] [address], [place] [address] Mar, [facility] [address] [id number] [address] [place] [address], [place] [address] Mar, [facility] [address] [id number] [address] [place] [address], [place] [address] Mar, [facility] [address] [id number] [address] [place] [address], [place] [address] Mar, [facility] [address] [id number] [address] [place] [address], [place] [address] Mar, [facility] [address] [id number] [address] [place] [address], [place] [address] Mar, [facility] [address] [id number] [address] [place] [address], [place] [address] Feb, [facility] [address] [id number] [address] [place] [address], [place] [address] Feb, [facility] [address] [id number] [address] [place] [address], [place] [address] Feb, [facility] [address] [id number] [address] [place] [address], [place] [address] Feb, [facility] [address] [id number] [address] [place] [address], [place] [address] Feb, [facility] [address] [id number] [address] [place] [address], [place] [address] Feb, [facility] [address] [id number] [address] [place] [address], [place] [address] Feb, [facility] [address] [id number] [address] [place] [address], [place] [address] Feb, 2013 [facility] [address] [id number] [address] [place] [address], [place] [address] Feb, [facility] [address] [id number] [address] [place] [address], [place] [address] Feb, [facility] [address] [id number] [address] [place] [address], [place] [address] Feb, [facility] [address] [id number] [address] [place] [address], [place] [address] Feb, [facility] [address] [id number] [address] [place] [address], [place] [address] Jan, [facility] [address] [id number] [address] [place] [address], [place] [address] Jan, [facility] [address] [id number] [address] [place] [address], [place] [address] Jan, [facility] [address] [id number] [address] [place] [address], [place] [address] Jan, [facility] [address] [id number] [address] [place] [address], [place] [address] Jan, [facility] [address] [id number] [address] [place] [address], [place] [address] Jan, [facility] [address] [id number] [address] [place] [address], [place] [address] Jan, [facility] [address] [id number] [address] [place] [address], [place] [address] Jan, [facility] [address] [id number] [address] [place] [address], [place] [address] Jan, [facility] [address] [id number] [address] [place] [address], [place] [address] Jan, [facility] [address] [id number] [address] [place] [address], [place] [address] Jan, [facility] [address] [id number] [address] [place] [address], [place] [address] Jan, [facility] [address] [id number] [address] [place] [address], [place] [address] Jan, [facility] [address] [id number] [address] [place] [address], [place] [address] Jan, [facility] [address] [id number] [address] [place] [address], [place] [address] Jan, [facility] [address] [id number] [address] [place] [address], [place] [address] Jan, [facility] [address] [id number] [address] [place] [address], [place] [address] Jan, [facility] [address] [id number] [address] [place] [address], [place] [address] December, [facility] [address] [id number] [address] [place] [address], [place] [address] December, [facility] [address] [id number] [address] [place] [address], [place] [address] December, [facility] [address] [id number] [address] [place] [address], [place] [address] December, [facility] [address] [id number] [address] [place] [address], [place] [address] December, [facility] [address] [id number] [address] [place] [address], [place] [address] December, [facility] [address] [id number] [address] [place] [address], [place] [address] Nov, [facility] [address] [id number] [facility] [address] Nov, [facility] [address] [id number] [address] [place] [address], [place] [address] Nov, [facility] [address] [id number] [address] [place] [address], [place] [address] Nov, [facility] [address] [id number] [address] [place] [address], [place] [address] Nov, [facility] [address] [id number] [address] [place] [address], [place] [address] Nov, [facility] [address] [id number] [address] [place] [address], [place] [address] Nov, [facility] [address] [id number] [address] [place] [address], [place] [address] Nov, [facility] [address] [id number] [address] [place] [address], [place] [address] Nov, [facility] [address] [id number] [address] [place] [address], [place] [address] Nov, [facility] [address] [id number] [address] [place] [address], [place] [address] Nov, [facility] [address] [id number] [address] [place] [address], [place] [address] Nov, [facility] [address] [id number] [address] [place] [address], [place] [address] Nov, [facility] [address] [id number] [address] [place] [address], [place] [address] Nov, [facility] [address] [id number] [address] [place] [address], [place] [address] Nov, [facility] [address] [id number] [address] [place] [address], [place] [address] Nov, [facility] [address] [id number] [address] [place] [address], [place] [address] Oct, [facility] [address] [id number] [facility] [address] Oct, [facility] [address] [id number] [address] [place] [address], [place] [address] Oct, [facility] [address] [id number] [address] [place] [address], [place] [address] Oct, [facility] [address] [id number] [address] [place] [address], [place] [address] Oct, [facility] [address] [id number] [address] [place] [address], [place] [address] Oct, [facility] [address] [id number] [address] [place] [address], [place] [address] Oct, [facility] [address] [id number] [address] [place] [address], [place] [address] Oct, [facility] [address] [id number] [address] [place] [address], [place] [address] Sep, [facility] [address] [id number] [address] [place] [address], [place] [address] Sep, [facility] [address] [id number] [address] [place] [address], [place] [address] Sep, [facility] [address] [id number] [address] [place] [address], [place] [address] Sep, [facility] [address] [id number] [address] [place] [address], [place] [address] Sep, [facility] [address] [id number] [address] [place] [address], [place] [address] Sep, [facility] [address] [id number] [address] [place] [address], [place] [address] Aug, [facility] [address] [id number] [address] [place] [address], [place] [address] Aug, [facility] [address] [id number] [address] [place] [address], [place] [address] Aug, [facility] [address] [id number] [address] [place] [address], [place] [address] Aug, [facility] [address] [id number] [address] [place] [address], [place] [address] Aug, [facility] [address] [id number] [address] [place] [address], [place] [address] Aug, [facility] [address] [id number] [address] [place] [address], [place] [address] Aug, [facility] [address] [id number] [address] [place] [address], [place] [address] Aug, [facility] [address] [id number] [address] [place] [address], [place] [address] Jul, [facility] [address] [id number] [address] [place] [address], [place] [address] Jul, [facility] [address] [id number] [address] [place] [address], [place] [address] Jul, [facility] [address] [id number] [address] [place] [address], [place] [address] Jul, [facility] [address] [id number] [address] [place] [address], [place] [address] Jul, [facility] [address] [id number] [address] [place] [address], [place] [address] Jul, [facility] [address] [id number] [address] [place] [address], [place] [address] Jul, [facility] [address] [id number] [address] [place] [address], [place] [address] Jul, [facility] [address] [id number] [address] [place] [address], [place] [address] Jul, [facility] [address] [id number] [address] [place] [address], [place] [address] Jun, [facility] [address] [id number] [address] [place] [address], [place] [address] 14 Jun, 2013 [facility] [address] [id number] [address] [place] [address], [place] [address] 13 Jun, 2013 [facility] [address] [id number] [address] [place] [address], [place] [address] 13 Jun, 2013 [facility] [address] [id number] [address] [place] [address], [place] [address] 07 Jun, 2013 [facility] [address] [id number] [address] [place] [address], [place] [address] 07 Jun, 2013 [facility] [address] [id number] [address] [place] [address], [place] [address] 31 May, 2013 [facility] [address] [id number] [address] [place] [address], [place] [address] 31 May, 2013 [facility] [address] [id number] [address] [place] [address] 17 May, 2013 [facility] [address] [id number] [address] [place] [address], [place] [address] 17 May, 2013 [facility] [address] [id number] [address] [place] [address] 14 May, 2013 [facility] [address] [id number] [address] [place] [address] 14 May, 2013 [facility] [address] [id number] [address] [place] [address] 10 May, 2013 [facility] [address] [id number] [address] [place] [address], [place] [address] 10 May, 2013 [facility] [address] [id number] [address] [place] [address] 07 May, 2013 [facility] [address] [id number] [address] [place] [address], [place] [address] 20 Apr, 2013 [facility] [address] [id number] [address] [place] [address], [place] [address] 19 Sep, 2012 [facility] [address] [id number] [address] [place] [address], [place] [address] 12 Sep, 2012 [facility] [address] [id number] [address] [place] [address], [place] [address] 24 Sep, 2011 [facility] [address] [id number] [address] [place] [address], [place] [address] 21 Sep, 2011 [facility] [address] [id number] [address] [place] [address], [place] [address] 21 Sep, 2011 [facility] [address] [id number] [address] [place] [address], [place] [address] 14 Apr, 2011 [facility] [address] [id number] [address] [place] [address], [place] [address] 10 Apr, 2011 [facility] [address] [id number] [address] [place] [address], [place] [address] 06 Apr, 2011 [facility] [address] [id number] [address] [place] [address], [place] [address] 04 Apr, 2011 [facility] [address] [id number] [address] [place] [address], [place] [address] 31 Mar, 2012 [facility] [address] [id number] [address] [place] [address], [place] [address] 28 Mar, 2012 [facility] [address] [id number] [address] [place] [address], [place] [address] 27 Mar, 2012 [facility] [address] [id number] [address] [place] [address], [place] [address] 10 Mar, 2012 [facility] [address] [id number] [address] [place] [address], [place] [address] 08 Mar, 2012 [facility] [address] [id number] [address] [place] [address], [place] [address] 03 Mar, 2012 [facility] [address] [id number] [address] [place] [address], [place] [address] 20 Feb, 2012 [facility] [address] [id number] [address] [place] [address], [place] [address] 10 Feb, 2012 [facility] [address] [id number] [address] [place] [address], [place] [address] Feb, [facility] [address] [id number] [address] [place] [address], [place] [address] Jan, [facility] [address] [id number] [address] [place] [address], [place] [address] Jan, [facility] [address] [id number] [address] [place] [address], [place] [address] Jan, [facility] [address] [id number] [address] [place] [address], [place] [address] Jan, [facility] [address] [id number] [address] [place] [address], [place] [address] Jan, [facility] [address] [id number] [address] [place] [address], [place] [address] Jan, [facility] [address] [id number] [address] [place] [address], [place] [address] Jan, [facility] [address] [id number] [address] [place] [address], [place] [address] Jan, [facility] [address] [id number] [address] [place] [address], [place] [address] December, [facility] [address] [id number] [address] [place] [address], [place] [address] December, [facility] [address] [id number] [address] [place] [address], [place] [address] December, [facility] [address] [id number] [address] [place] [address], [place] [address] December, [facility] [address] [id number] [address] [place] [address], [place] [address] December, [facility] [address] [id number] [address] [place] [address], [place] [address] December, [facility] [address] [id number] [address] [place] [address], [place] [address] 13 Nov, 2011 [facility] [address] [id number] [address] [place] [address], [place] [address] 13 Nov, 2011 [facility] [address] [id number] [address] [place] [address], [place] [address] 13 Nov, 2011 [facility] [address] [id number] [address] [place] [address], [place] [address] 13 Nov, 2011 [facility] [address] [id number] [address] [place] [address], [place] [address] Nov, [facility] [address] [id number] [address] [place] [address], [place] [address] 15 Oct, 2011 [facility] [address] [id number] [address] [place] [address], [place] [address] 17 Sep, 2011 [facility] [address] [id number] [address] [place] [address], [place] [address] Aug, [facility] [address] [id number] [address] [place] [address], [place] [address] Aug, [facility] [address] [id number] [address] [place] [address], [place] [address] Aug, [facility] [address] [id number] [address] [place] [address], [place] [address] Aug, [facility] [address] [id number] [address] [place] [address], [place] [address] Aug, [facility] [address] [id number] [address] [place] [address], [place] [address] Jul, [facility] [address] [id number] [address] [place] [address], [place] [address] Jul, [facility] [address] [id number] [address] [place] [address], [place] [address] Jun, [facility] [address] [id number] [address] [place] [address], [place] [address] 04 Jun, 2011 [facility] [address] [id number] [address] [place] [address], [place] [address] Jun, [facility] [address] [id number] [address] [place] [address], [place] [address] 18 May, 2011 [facility] [address] [id number] [address] [place] [address], [place] [address] May, [facility] [address] [id number] [address] [place] [address], [place] [address] 16 Oct, 2010 [facility] [address] [id number] [address] [place] [address], [place] [address] Oct, [facility] [address] [id number] [address] [place] [address], [place] [address] Jul, [facility] [address] [id number] [address] [place] [address], [place] [address] 08 Jul, 2010 [facility] [address] [id number] [address] [place] [address], [place] [address] Jul, [facility] [address] [id number] [address] [place] [address], [place] [address] Jul, [facility] [address] [id number] [address] [place] [address], [place] [address] Jul, [facility] [address] [id number] [address] [place] [address], [place] [address] Jun, [facility] [address] [id number] [address] [place] [address], [place] [address] Jun, [facility] [address] [id number] [address] [place] [address], [place] [address] Jun, [facility] [address] [id number] [address] [place] [address], [place] [address] May, [facility] [address] [id number] [address] [place] [address] 16 Mar, 2010 IMMUNIZATIONS No Known Immunizations [...]
--- OUTSIDE RECORDS SUMMARY | 2019-11-28 22:58 | XMS REPORT ---
Author Author Caren Barba Doctor Organization [facility] Address Unknown Phone Unavailable Care Team Providers Care Spanish Translator Name Role Phone Migration, Doctor Unavailable Unavailable PROBLEMS Type Condition ICD9-CM Code IBU91-JB Code Onset Dates Condition S tatus SNOMED Code Problem COPD (chronic obstructive pulmonary disease) J44.9 Active 36400360 Problem Diabetes E11.9 Active 23636617 Problem Diabetic neuropathy E11.40 Active 184957774 Problem Arthritis M19.90 Active 7812085 ALLERGIES No Information ENCOUNTERS Encounter Location Date Diagnosis [facility] [address] [id number] [address] [place] [id number] December, [facility] [address] [id number] [address] [place] [address] Aug, Arthritis M19.90 [facility] [address] [id number] [address] [place] [address] Jul, [facility] [address] [id number] [address] [place] [address] Jul, [facility] [address] [facility] [id number] [address] [place] [address] Jul, [facility] [address] [id number] [address] [place] [address] Jul, [facility] [address] [id number] [address] [place] [address] Jul, Diabetes E11.9 ; Diabetic ne uropathy E11.40 ; Arthritis M19.90 and COPD (chronic obstructive pulmonary disease) J44.9 [facility] [address] [id number] [address] [place] [address] Jul, [facility] [address] [facility] [id number] [address] [place] [address] Jun, [facility] [address] [id number] [address] [place] [address], [place] [address] Jun, [facility] [address] [id number] [address] [place] [address], [place] [address] 17 Jun, 2015 [facility] [address] [id number] [address] [place] [address], [place] [address] 10 Jun, 2015 [facility] [address] [id number] [address] [place] [address], [place] [address] 15 May, 2015 [facility] [address] [id number] [address] [place] [address], [place] [address] 13 May, 2015 [facility] [address] [id number] [address] [place] [address], [place] [address] 07 May, 2015 [facility] [address] [id number] [address] [place] [address], [place] [address] 22 Apr, 2014 [facility] [address] [id number] [address] [place] [address], [place] [address] 21 Sep, 2014 [facility] [address] [id number] [address] [place] [address], [place] [address] 21 Sep, 2014 [facility] [address] [id number] [address] [place] [address] 15 Apr, 2014 [facility] [address] [id number] [address] [place] [address] 11 Sep, 2014 [facility] [address] [id number] [address] [place] [address] 09 Sep, 2014 [facility] [address] [id number] [address] [place] [address] 08 Sep, 2014 [facility] [address] [id number] [address] [place] [address] 03 Sep, 2014 [facility] [address] [id number] [address] [place] [address] 02 Sep, 2014 [facility] [address] [id number] [address] [place] [address] Mar, [facility] [address] [facility] [id number] [address] [place] [address] Mar, [facility] [address] [facility] [id number] [address] [place] [address] Mar, [facility] [address] [facility] [id number] [address] [place] [address] Mar, [facility] [address] [facility] [id number] [address] [place] [address] Mar, [facility] [address] [facility] [id number] [address] [place] [address] Mar, Diabetes mellitus 250.00 ; C OPD (chronic obstructive pulmonary disease) 496 ; Anxiety 300.00 and Arthritis 716.90 [facility] [address] [facility] [id number] [address] [place] [address] Feb, [facility] [address] [facility] [id number] [address] [place] [address] Feb, [facility] [address] [facility] [id number] [address] [place] [address] Feb, [facility] [address] [facility] [id number] [address] [place] [address] Feb, [facility] [address] [facility] [id number] [address] [place] [address] Jan, Seborrheic keratosis 702.19 and Nevus 216.9 [facility] [address] [facility] [id number] [address] [place] [address] Jan, [facility] [address] [facility] [id number] [address] [place] [address] Jan, Routine gynecological examin ation V72.31 ; Breast cancer screening V76.10 ; Hot flashes 627.2 ; Atypical nevi 216.9 and Constipation 564.00 [facility] [address] [facility] [id number] [address] [place] [address] Jan, [facility] [address] [id number] [address] [place] [address], [place] [address] December, [facility] [address] [id number] [address] [place] [address], [place] [address] December, [facility] [address] [id number] [address] [place] [address], [place] [address] 14 Nov, 2014 [facility] [address] [id number] [address] [place] [address], [place] [address] Nov, [facility] [address] [id number] [address] [place] [address], [place] [address] 23 Oct, 2014 [facility] [address] [id number] [address] [place] [address], [place] [address] 23 Oct, 2014 [facility] [address] [id number] [address] [place] [address], [place] [address] 18 Oct, 2014 [facility] [address] [id number] [address] [place] [address], [place] [address] 18 Oct, 2014 [facility] [address] [id number] [address] [place] [address], [place] [address] 17 Oct, 2014 [facility] [address] [id number] [address] [place] [address], [place] [address] 17 Oct, 2014 [facility] [address] [id number] [address] [place] [address], [place] [address] 16 Oct, 2014 [facility] [address] [id number] [address] [place] [address], [place] [address] 16 Oct, 2014 [facility] [address] [id number] [address] [place] [address], [place] [address] 11 Oct, 2014 [facility] [address] [id number] [address] [place] [address], [place] [address] Oct, [facility] [address] [id number] [address] [place] [address], [place] [address] Sep, [facility] [address] [id number] [address] [place] [address], [place] [address] 27 Sep, 2014 [facility] [address] [id number] [address] [place] [address], [place] [address] Sep, 2014 [facility] [address] [id number] [address] [place] [address], [place] [address] Sep, 2014 [facility] [address] [id number] [address] [place] [address], [place] [address] Sep, 2014 [facility] [address] [id number] [address] [place] [address], [place] [address] Sep, [facility] [address] [id number] [address] [place] [address], [place] [address] Sep, [facility] [address] [id number] [address] [place] [address], [place] [address] Aug, [facility] [address] [id number] [address] [place] [address], [place] [address] Aug, [facility] [address] [id number] [address] [place] [address], [place] [address] Aug, [facility] [address] [id number] [address] [place] [address], [place] [address] Aug, [facility] [address] [id number] [address] [place] [address], [place] [address] Aug, [facility] [address] [id number] [address] [place] [address], [place] [address] Aug, [facility] [address] [id number] [address] [place] [address], [place] [address] Jul, [facility] [address] [id number] [address] [place] [address], [place] [address] Jul, [facility] [address] [id number] [address] [place] [address], [place] [address] Jul, [facility] [address] [id number] [address] [place] [address], [place] [address] Jul, [facility] [address] [id number] [address] [place] [address], [place] [address] Jul, [facility] [address] [id number] [address] [place] [address], [place] [address] Jun, [facility] [address] [id number] [address] [place] [address], [place] [address] Jun, [facility] [address] [id number] [address] [place] [address], [place] [address] Jun, [facility] [address] [id number] [address] [place] [address], [place] [address] Jun, [facility] [address] [id number] [address] [place] [address], [place] [address] Jun, [facility] [address] [id number] [address] [place] [address], [place] [address] Jun, [facility] [address] [id number] [address] [place] [address], [place] [address] May, [facility] [address] [id number] [address] [place] [address], [place] [address] May, [facility] [address] [id number] [address] [place] [address], [place] [address] May, [facility] [address] [id number] [address] [place] [address], [place] [address] May, [facility] [address] [id number] [address] [place] [address] May, [facility] [address] [id number] [address] [place] [address], [place] [address] May, [facility] [address] [id number] [address] [place] [address], [place] [address] May, [facility] [address] [id number] [address] [place] [address], [place] [address] May, [facility] [address] [id number] [facility] [place] [address] May, [facility] [address] [id number] [facility] [place] [address] Apr, [facility] [address] [id number] [address] [place] [address], [place] [address] Apr, [facility] [address] [id number] [address] [place] [address], [place] [address] Apr, [facility] [address] [id number] [address] [place] [address], [place] [address] Apr, [facility] [address] [id number] [address] [place] [address], [place] [address] Mar, [facility] [address] [id number] [address] [place] [address], [place] [address] Mar, [facility] [address] [id number] [address] [place] [address], [place] [address] Mar, [facility] [address] [id number] [address] [place] [address], [place] [address] Mar, [facility] [address] [id number] [address] [place] [address], [place] [address] Mar, [facility] [address] [id number] [address] [place] [address], [place] [address] Mar, [facility] [address] [id number] [address] [place] [address], [place] [address] Feb, [facility] [address] [id number] [address] [place] [address], [place] [address] Feb, [facility] [address] [id number] [address] [place] [address], [place] [address] Feb, [facility] [address] [id number] [address] [place] [address], [place] [address] Feb, [facility] [address] [id number] [address] [place] [address], [place] [address] Feb, [facility] [address] [id number] [address] [place] [address], [place] [address] Feb, [facility] [address] [id number] [address] [place] [address], [place] [address] Feb, [facility] [address] [id number] [address] [place] [address], [place] [address] Feb, 2013 [facility] [address] [id number] [address] [place] [address], [place] [address] Feb, [facility] [address] [id number] [address] [place] [address], [place] [address] Feb, [facility] [address] [id number] [address] [place] [address], [place] [address] Feb, [facility] [address] [id number] [address] [place] [address], [place] [address] Feb, [facility] [address] [id number] [address] [place] [address], [place] [address] Jan, [facility] [address] [id number] [address] [place] [address], [place] [address] Jan, [facility] [address] [id number] [address] [place] [address], [place] [address] Jan, [facility] [address] [id number] [address] [place] [address], [place] [address] Jan, [facility] [address] [id number] [address] [place] [address], [place] [address] Jan, [facility] [address] [id number] [address] [place] [address], [place] [address] Jan, [facility] [address] [id number] [address] [place] [address], [place] [address] Jan, [facility] [address] [id number] [address] [place] [address], [place] [address] Jan, [facility] [address] [id number] [address] [place] [address], [place] [address] Jan, [facility] [address] [id number] [address] [place] [address], [place] [address] Jan, [facility] [address] [id number] [address] [place] [address], [place] [address] Jan, [facility] [address] [id number] [address] [place] [address], [place] [address] Jan, [facility] [address] [id number] [address] [place] [address], [place] [address] Jan, [facility] [address] [id number] [address] [place] [address], [place] [address] Jan, [facility] [address] [id number] [address] [place] [address], [place] [address] Jan, [facility] [address] [id number] [address] [place] [address], [place] [address] Jan, [facility] [address] [id number] [address] [place] [address], [place] [address] Jan, [facility] [address] [id number] [address] [place] [address], [place] [address] December, [facility] [address] [id number] [address] [place] [address], [place] [address] December, [facility] [address] [id number] [address] [place] [address], [place] [address] December, [facility] [address] [id number] [address] [place] [address], [place] [address] December, [facility] [address] [id number] [address] [place] [address], [place] [address] December, [facility] [address] [id number] [address] [place] [address], [place] [address] December, [facility] [address] [id number] [address] [place] [address], [place] [address] Nov, [facility] [address] [id number] [facility] [place] [address] Nov, [facility] [address] [id number] [address] [place] [address], [place] [address] Nov, [facility] [address] [id number] [address] [place] [address], [place] [address] Nov, [facility] [address] [id number] [address] [place] [address], [place] [address] Nov, [facility] [address] [id number] [address] [place] [address], [place] [address] Nov, [facility] [address] [id number] [address] [place] [address], [place] [address] Nov, [facility] [address] [id number] [address] [place] [address], [place] [address] Nov, [facility] [address] [id number] [address] [place] [address], [place] [address] Nov, [facility] [address] [id number] [address] [place] [address], [place] [address] Nov, [facility] [address] [id number] [address] [place] [address], [place] [address] Nov, [facility] [address] [id number] [address] [place] [address], [place] [address] Nov, [facility] [address] [id number] [address] [place] [address], [place] [address] Nov, [facility] [address] [id number] [address] [place] [address], [place] [address] Nov, [facility] [address] [id number] [address] [place] [address], [place] [address] Nov, [facility] [address] [id number] [address] [place] [address], [place] [address] Nov, [facility] [address] [id number] [address] [place] [address], [place] [address] Oct, [facility] [address] [id number] [facility] [place] [address] Oct, [facility] [address] [id number] [address] [place] [address], [place] [address] Oct, [facility] [address] [id number] [address] [place] [address], [place] [address] Oct, [facility] [address] [id number] [address] [place] [address], [place] [address] Oct, [facility] [address] [id number] [address] [place] [address], [place] [address] Oct, [facility] [address] [id number] [address] [place] [address], [place] [address] Oct, [facility] [address] [id number] [address] [place] [address], [place] [address] Oct, [facility] [address] [id number] [address] [place] [address], [place] [address] Sep, [facility] [address] [id number] [address] [place] [address], [place] [address] Sep, [facility] [address] [id number] [address] [place] [address], [place] [address] Sep, [facility] [address] [id number] [address] [place] [address], [place] [address] Sep, [facility] [address] [id number] [address] [place] [address], [place] [address] Sep, [facility] [address] [id number] [address] [place] [address], [place] [address] Sep, [facility] [address] [id number] [address] [place] [address], [place] [address] Aug, [facility] [address] [id number] [address] [place] [address], [place] [address] Aug, [facility] [address] [id number] [address] [place] [address], [place] [address] Aug, [facility] [address] [id number] [address] [place] [address], [place] [address] Aug, [facility] [address] [id number] [address] [place] [address], [place] [address] Aug, [facility] [address] [id number] [address] [place] [address], [place] [address] Aug, [facility] [address] [id number] [address] [place] [address], [place] [address] Aug, [facility] [address] [id number] [address] [place] [address], [place] [address] Aug, [facility] [address] [id number] [address] [place] [address], [place] [address] Jul, [facility] [address] [id number] [address] [place] [address], [place] [address] Jul, [facility] [address] [id number] [address] [place] [address], [place] [address] Jul, [facility] [address] [id number] [address] [place] [address], [place] [address] Jul, [facility] [address] [id number] [address] [place] [address], [place] [address] Jul, [facility] [address] [id number] [address] [place] [address], [place] [address] Jul, [facility] [address] [id number] [address] [place] [address], [place] [address] Jul, [facility] [address] [id number] [address] [place] [address], [place] [address] Jul, [facility] [address] [id number] [address] [place] [address], [place] [address] Jul, [facility] [address] [id number] [address] [place] [address], [place] [address] Jun, [facility] [address] [id number] [address] [place] [address], [place] [address] 14 Jun, 2013 [facility] [address] [id number] [address] [place] [address], [place] [address] 13 Jun, 2013 [facility] [address] [id number] [address] [place] [address], [place] [address] 13 Jun, 2013 [facility] [address] [id number] [address] [place] [address], [place] [address] 07 Jun, 2013 [facility] [address] [id number] [address] [place] [address], [place] [address] 07 Jun, 2013 [facility] [address] [id number] [address] [place] [address], [place] [address] 31 May, 2013 [facility] [address] [id number] [address] [place] [address], [place] [address] 31 May, 2013 [facility] [address] [id number] [address] [place] [id number] 17 May, 2013 [facility] [address] [id number] [address] [place] [address], [place] [address] 17 May, 2013 [facility] [address] [id number] [address] [place] [id number] 14 May, 2013 [facility] [address] [id number] [address] [place] [id number] 14 May, 2013 [facility] [address] [id number] [address] [place] [id number] 10 May, 2013 [facility] [address] [id number] [address] [place] [address], [place] [address] 10 May, 2013 [facility] [address] [id number] [address] [place] [id number] 07 May, 2013 [facility] [address] [id number] [address] [place] [address], [place] [address] 20 Apr, 2013 [facility] [address] [id number] [address] [place] [address], [place] [address] 19 Sep, 2012 [facility] [address] [id number] [address] [place] [address], [place] [address] 12 Sep, 2012 [facility] [address] [id number] [address] [place] [address], [place] [address] 24 Sep, 2011 [facility] [address] [id number] [address] [place] [address], [place] [address] 21 Sep, 2011 [facility] [address] [id number] [address] [place] [address], [place] [address] 21 Sep, 2011 [facility] [address] [id number] [address] [place] [address], [place] [address] 14 Apr, 2011 [facility] [address] [id number] [address] [place] [address], [place] [address] 10 Apr, 2011 [facility] [address] [id number] [address] [place] [address], [place] [address] 06 Apr, 2011 [facility] [address] [id number] [address] [place] [address], [place] [address] 04 Apr, 2011 [facility] [address] [id number] [address] [place] [address], [place] [address] 31 Mar, 2012 [facility] [address] [id number] [address] [place] [address], [place] [id number] 28 Mar, 2012 [facility] [address] [id number] [address] [place] [address], [place] [id number] 27 Mar, 2012 [facility] [address] [id number] [address] [place] [address], [place] [address] 10 Mar, 2012 [facility] [address] [id number] [address] [place] [address], [place] [address] 08 Mar, 2012 [facility] [address] [id number] [address] [place] [address], [place] [address] 03 Mar, 2012 [facility] [address] [id number] [address] [place] [address], [place] [address] 20 Feb, 2012 [facility] [address] [id number] [address] [place] [address], [place] [address] 10 Feb, 2012 [facility] [address] [id number] [address] [place] [address], [place] [address] Feb, [facility] [address] [id number] [address] [place] [address], [place] [address] Jan, [facility] [address] [id number] [address] [place] [address], [place] [address] Jan, [facility] [address] [id number] [address] [place] [address], [place] [address] Jan, [facility] [address] [id number] [address] [place] [address], [place] [address] Jan, [facility] [address] [id number] [address] [place] [address], [place] [address] Jan, [facility] [address] [id number] [address] [place] [address], [place] [address] Jan, [facility] [address] [id number] [address] [place] [address], [place] [address] Jan, [facility] [address] [id number] [address] [place] [address], [place] [address] Jan, [facility] [address] [id number] [address] [place] [address], [place] [address] December, [facility] [address] [id number] [address] [place] [address], [place] [address] December, [facility] [address] [id number] [address] [place] [address], [place] [address] December, [facility] [address] [id number] [address] [place] [address], [place] [address] December, [facility] [address] [id number] [address] [place] [address], [place] [address] December, [facility] [address] [id number] [address] [place] [address], [place] [address] December, [facility] [address] [id number] [address] [place] [address], [place] [address] 13 Nov, 2011 [facility] [address] [id number] [address] [place] [address], [place] [address] 13 Nov, 2011 [facility] [address] [id number] [address] [place] [address], [place] [address] 13 Nov, 2011 [facility] [address] [id number] [address] [place] [address], [place] [address] 13 Nov, 2011 [facility] [address] [id number] [address] [place] [address], [place] [address] Nov, [facility] [address] [id number] [address] [place] [address], [place] [address] 15 Oct, 2011 [facility] [address] [id number] [address] [place] [address], [place] [address] 17 Sep, 2011 [facility] [address] [id number] [address] [place] [address], [place] [address] Aug, [facility] [address] [id number] [address] [place] [address], [place] [address] Aug, [facility] [address] [id number] [address] [place] [address], [place] [address] Aug, [facility] [address] [id number] [address] [place] [address], [place] [address] Aug, [facility] [address] [id number] [address] [place] [address], [place] [address] Aug, [facility] [address] [id number] [address] [place] [address], [place] [address] Jul, [facility] [address] [id number] [address] [place] [address], [place] [address] Jul, [facility] [address] [id number] [address] [place] [address], [place] [address] Jun, [facility] [address] [id number] [address] [place] [address], [place] [address] 04 Jun, 2011 [facility] [address] [id number] [address] [place] [address], [place] [address] Jun, [facility] [address] [id number] [address] [place] [address], [place] [address] 18 May, 2011 [facility] [address] [id number] [address] [place] [address], [place] [address] May, [facility] [address] [id number] [address] [place] [address], [place] [address] 16 Oct, 2010 [facility] [address] [id number] [address] [place] [address], [place] [address] Oct, [facility] [address] [id number] [address] [place] [address], [place] [address] Jul, [facility] [address] [id number] [address] [place] [address], [place] [address] 08 Jul, 2010 [facility] [address] [id number] [address] [place] [address], [place] [address] Jul, [facility] [address] [id number] [address] [place] [address], [place] [address] Jul, [facility] [address] [id number] [address] [place] [address], [place] [address] Jul, [facility] [address] [id number] [address] [place] [address], [place] [address] Jun, [facility] [address] [id number] [address] [place] [address], [place] [address] Jun, [facility] [address] [id number] [address] [place] [address], [place] [address] Jun, [facility] [address] [id number] [address] [place] [address], [place] [address] May, [facility] [address] [id number] [address] [place] [id number] 16 Mar, 2010 IMMUNIZATIONS No Known Immunizations SOCIAL HISTORY Never Assessed REASON FOR VISIT EMR-[facility] [place] PLAN OF CARE [...]
--- OUTSIDE RECORDS SUMMARY | 2019-11-28 22:58 | XMS REPORT ---
Author Author Caren Barba Doctor Organization 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 Role Phone Migration, Doctor Unavailable Unavailable PROBLEMS Type Condition ICD9-CM Code [id number] Code Onset Dates Condition S tatus SNOMED Code Problem COPD (chronic obstructive pulmonary disease) J44.9 Active 10733349 Problem Diabetes E11.9 Active 57540138 Problem Diabetic neuropathy E11.40 Active 642658547 Problem Arthritis M19.90 Active [id number] ALLERGIES No Information ENCOUNTERS Encounter Location Date Diagnosis [facility] [address] [id number] [address] [place] [id number] December, [facility] [address] [id number] [address] [place] [address] Aug, Arthritis M19.90 [facility] [address] [id number] [address] [place] [address] Jul, [facility] [address] [id number] [address] [place] [address] Jul, [facility] [address] [facility] [id number] [address] [place] [address] Jul, [facility] [address] [id number] [address] [place] [address] Jul, [facility] [address] [id number] [address] [place] [address] Jul, Diabetes E11.9 ; Diabetic ne uropathy E11.40 ; Arthritis M19.90 and COPD (chronic obstructive pulmonary disease) J44.9 [facility] [address] [id number] [address] [place] [id number] Jul, [facility] [address] [facility] [id number] [address] [place] [address] Jun, [facility] [address] [id number] [address] [place] [address], [place] [address] Jun, [facility] [address] [id number] [address] [place] [address], [place] [address] 17 Jun, 2015 [facility] [address] [id number] [address] [place] [address], [place] [address] 10 Jun, 2015 [facility] [address] [id number] [address] [place] [address], [place] [address] 15 May, 2015 [facility] [address] [id number] [address] [place] [address], [place] [address] 13 May, 2015 [facility] [address] [id number] [address] [place] [address], [place] [address] 07 May, 2015 [facility] [address] [id number] [address] [place] [address], [place] [address] 22 Apr, 2014 [facility] [address] [id number] [address] [place] [address], [place] [address] 21 Sep, 2014 [facility] [address] [id number] [address] [place] [address], [place] [address] 21 Sep, 2014 [facility] [address] [id number] [address] [place] [id number] 15 Apr, 2014 [facility] [address] [id number] [address] [place] [id number] 11 Sep, 2014 [facility] [address] [id number] [address] [place] [id number] 09 Sep, 2014 [facility] [address] [id number] [address] [place] [id number] 08 Sep, 2014 [facility] [address] [id number] [address] [place] [address] 03 Sep, 2014 [facility] [address] [id number] [address] [place] [id number] 02 Sep, 2014 [facility] [address] [id number] [address] [place] [id number] Mar, [facility] [address] [facility] [id number] [address] [place] [id number] Mar, [facility] [address] [facility] [id number] [address] [place] [address] Mar, [facility] [address] [facility] [id number] [address] [place] [address] Mar, [facility] [address] [facility] [id number] [address] [place] [address] Mar, [facility] [address] [facility] [id number] [address] [place] [address] Mar, Diabetes mellitus 250.00 ; C OPD (chronic obstructive pulmonary disease) 496 ; Anxiety 300.00 and Arthritis 716.90 [facility] [address] [facility] [id number] [address] [place] [address] Feb, [facility] [address] [facility] [id number] [address] [place] [id number] Feb, [facility] [address] [facility] [id number] [address] [place] [address] Feb, [facility] [address] [facility] [id number] [address] [place] [id number] Feb, [facility] [address] [facility] [id number] [address] [place] [address] Jan, Seborrheic keratosis 702.19 and Nevus 216.9 [facility] [address] [facility] [id number] [address] [place] [address] Jan, [facility] [address] [facility] [id number] [address] [place] [address] Jan, Routine gynecological examin ation V72.31 ; Breast cancer screening V76.10 ; Hot flashes 627.2 ; Atypical nevi 216.9 and Constipation 564.00 [facility] [address] [facility] [id number] [address] [place] [address] Jan, [facility] [address] [id number] [address] [place] [address], [place] [address] December, [facility] [address] [id number] [address] [place] [address], [place] [address] December, [facility] [address] [id number] [address] [place] [address], [place] [address] 14 Nov, 2014 [facility] [address] [id number] [address] [place] [address], [place] [address] Nov, [facility] [address] [id number] [address] [place] [address], [place] [address] 23 Oct, 2014 [facility] [address] [id number] [address] [place] [address], [place] [address] 23 Oct, 2014 [facility] [address] [id number] [address] [place] [address], [place] [address] 18 Oct, 2014 [facility] [address] [id number] [address] [place] [address], [place] [address] 18 Oct, 2014 [facility] [address] [id number] [address] [place] [address], [place] [address] 17 Oct, 2014 [facility] [address] [id number] [address] [place] [address], [place] [address] 17 Oct, 2014 [facility] [address] [id number] [address] [place] [address], [place] [address] 16 Oct, 2014 [facility] [address] [id number] [address] [place] [address], [place] [address] 16 Oct, 2014 [facility] [address] [id number] [address] [place] [address], [place] [address] 11 Oct, 2014 [facility] [address] [id number] [address] [place] [address], [place] [address] Oct, [facility] [address] [id number] [address] [place] [address], [place] [address] Sep, [facility] [address] [id number] [address] [place] [address], [place] [address] 27 Sep, 2014 [facility] [address] [id number] [address] [place] [address], [place] [address] Sep, 2014 [facility] [address] [id number] [address] [place] [address], [place] [address] Sep, 2014 [facility] [address] [id number] [address] [place] [address], [place] [address] Sep, 2014 [facility] [address] [id number] [address] [place] [address], [place] [address] Sep, [facility] [address] [id number] [address] [place] [address], [place] [address] Sep, [facility] [address] [id number] [address] [place] [address], [place] [address] Aug, [facility] [address] [id number] [address] [place] [address], [place] [address] Aug, [facility] [address] [id number] [address] [place] [address], [place] [address] Aug, [facility] [address] [id number] [address] [place] [address], [place] [address] Aug, [facility] [address] [id number] [address] [place] [address], [place] [address] Aug, [facility] [address] [id number] [address] [place] [address], [place] [address] Aug, [facility] [address] [id number] [address] [place] [address], [place] [address] Jul, [facility] [address] [id number] [address] [place] [address], [place] [address] Jul, [facility] [address] [id number] [address] [place] [address], [place] [address] Jul, [facility] [address] [id number] [address] [place] [address], [place] [address] Jul, [facility] [address] [id number] [address] [place] [address], [place] [address] Jul, [facility] [address] [id number] [address] [place] [address], [place] [address] Jun, [facility] [address] [id number] [address] [place] [address], [place] [address] Jun, [facility] [address] [id number] [address] [place] [address], [place] [address] Jun, [facility] [address] [id number] [address] [place] [address], [place] [address] Jun, [facility] [address] [id number] [address] [place] [address], [place] [address] Jun, [facility] [address] [id number] [address] [place] [address], [place] [address] Jun, [facility] [address] [id number] [address] [place] [address], [place] [address] May, [facility] [address] [id number] [address] [place] [address], [place] [address] May, [facility] [address] [id number] [address] [place] [address], [place] [address] May, [facility] [address] [id number] [address] [place] [address], [place] [address] May, [facility] [address] [id number] [address] [place] [address] May, [facility] [address] [id number] [address] [place] [address], [place] [address] May, [facility] [address] [id number] [address] [place] [address], [place] [address] May, [facility] [address] [id number] [address] [place] [address], [place] [address] May, [facility] [address] [id number] [facility] [place] [address] May, [facility] [address] [id number] [facility] [place] [address] Apr, [facility] [address] [id number] [address] [place] [address], [place] [address] Apr, [facility] [address] [id number] [address] [place] [address], [place] [address] Apr, [facility] [address] [id number] [address] [place] [address], [place] [address] Apr, [facility] [address] [id number] [address] [place] [address], [place] [address] Mar, [facility] [address] [id number] [address] [place] [address], [place] [address] Mar, [facility] [address] [id number] [address] [place] [address], [place] [address] Mar, [facility] [address] [id number] [address] [place] [address], [place] [address] Mar, [facility] [address] [id number] [address] [place] [address], [place] [address] Mar, [facility] [address] [id number] [address] [place] [address], [place] [address] Mar, [facility] [address] [id number] [address] [place] [address], [place] [address] Feb, [facility] [address] [id number] [address] [place] [address], [place] [address] Feb, [facility] [address] [id number] [address] [place] [address], [place] [address] Feb, [facility] [address] [id number] [address] [place] [address], [place] [address] Feb, [facility] [address] [id number] [address] [place] [address], [place] [address] Feb, [facility] [address] [id number] [address] [place] [address], [place] [address] Feb, [facility] [address] [id number] [address] [place] [address], [place] [address] Feb, [facility] [address] [id number] [address] [place] [address], [place] [address] Feb, 2013 [facility] [address] [id number] [address] [place] [address], [place] [address] Feb, [facility] [address] [id number] [address] [place] [address], [place] [address] Feb, [facility] [address] [id number] [address] [place] [address], [place] [address] Feb, [facility] [address] [id number] [address] [place] [address], [place] [address] Feb, [facility] [address] [id number] [address] [place] [address], [place] [address] Jan, [facility] [address] [id number] [address] [place] [address], [place] [address] Jan, [facility] [address] [id number] [address] [place] [address], [place] [address] Jan, [facility] [address] [id number] [address] [place] [address], [place] [address] Jan, [facility] [address] [id number] [address] [place] [address], [place] [address] Jan, [facility] [address] [id number] [address] [place] [address], [place] [address] Jan, [facility] [address] [id number] [address] [place] [address], [place] [address] Jan, [facility] [address] [id number] [address] [place] [address], [place] [address] Jan, [facility] [address] [id number] [address] [place] [address], [place] [address] Jan, [facility] [address] [id number] [address] [place] [address], [place] [address] Jan, [facility] [address] [id number] [address] [place] [address], [place] [address] Jan, [facility] [address] [id number] [address] [place] [address], [place] [address] Jan, [facility] [address] [id number] [address] [place] [address], [place] [address] Jan, [facility] [address] [id number] [address] [place] [address], [place] [address] Jan, [facility] [address] [id number] [address] [place] [address], [place] [address] Jan, [facility] [address] [id number] [address] [place] [address], [place] [address] Jan, [facility] [address] [id number] [address] [place] [address], [place] [address] Jan, [facility] [address] [id number] [address] [place] [address], [place] [address] December, [facility] [address] [id number] [address] [place] [address], [place] [address] December, [facility] [address] [id number] [address] [place] [address], [place] [address] December, [facility] [address] [id number] [address] [place] [address], [place] [address] December, [facility] [address] [id number] [address] [place] [address], [place] [address] December, [facility] [address] [id number] [address] [place] [address], [place] [address] December, [facility] [address] [id number] [address] [place] [address], [place] [address] Nov, [facility] [address] [id number] [facility] [place] [address] Nov, [facility] [address] [id number] [address] [place] [address], [place] [address] Nov, [facility] [address] [id number] [address] [place] [address], [place] [address] Nov, [facility] [address] [id number] [address] [place] [address], [place] [address] Nov, [facility] [address] [id number] [address] [place] [address], [place] [address] Nov, [facility] [address] [id number] [address] [place] [address], [place] [address] Nov, [facility] [address] [id number] [address] [place] [address], [place] [address] Nov, [facility] [address] [id number] [address] [place] [address], [place] [address] Nov, [facility] [address] [id number] [address] [place] [address], [place] [address] Nov, [facility] [address] [id number] [address] [place] [address], [place] [address] Nov, [facility] [address] [id number] [address] [place] [address], [place] [address] Nov, [facility] [address] [id number] [address] [place] [address], [place] [address] Nov, [facility] [address] [id number] [address] [place] [address], [place] [address] Nov, [facility] [address] [id number] [address] [place] [address], [place] [address] Nov, [facility] [address] [id number] [address] [place] [address], [place] [address] Nov, [facility] [address] [id number] [address] [place] [address], [place] [address] Oct, [facility] [address] [id number] [facility] [place] [address] Oct, [facility] [address] [id number] [address] [place] [address], [place] [address] Oct, [facility] [address] [id number] [address] [place] [address], [place] [address] Oct, [facility] [address] [id number] [address] [place] [address], [place] [address] Oct, [facility] [address] [id number] [address] [place] [address], [place] [address] Oct, [facility] [address] [id number] [address] [place] [address], [place] [address] Oct, [facility] [address] [id number] [address] [place] [address], [place] [address] Oct, [facility] [address] [id number] [address] [place] [address], [place] [address] Sep, [facility] [address] [id number] [address] [place] [address], [place] [address] Sep, [facility] [address] [id number] [address] [place] [address], [place] [address] Sep, [facility] [address] [id number] [address] [place] [address], [place] [address] Sep, [facility] [address] [id number] [address] [place] [address], [place] [id number] Sep, [facility] [address] [id number] [address] [place] [address], [place] [id number] Sep, [facility] [address] [id number] [address] [place] [address], [place] [id number] Aug, [facility] [address] [id number] [address] [place] [address], [place] [id number] Aug, [facility] [address] [id number] [address] [place] [address], [place] [id number] Aug, [facility] [address] [id number] [address] [place] [address], [place] [id number] Aug, [facility] [address] [id number] [address] [place] [address], [place] [id number] Aug, [facility] [address] [id number] [address] [place] [address], [place] [address] Aug, [facility] [address] [id number] [address] [place] [address], [place] [id number] Aug, [facility] [address] [id number] [address] [place] [address], [place] [id number] Aug, [facility] [address] [id number] [address] [place] [address], [place] [id number] Jul, [facility] [address] [id number] [address] [place] [address], [place] [address] Jul, [facility] [address] [id number] [address] [place] [address], [place] [id number] Jul, [facility] [address] [id number] [address] [place] [address], [place] [id number] Jul, [facility] [address] [id number] [address] [place] [address], [place] [id number] Jul, [facility] [address] [id number] [address] [place] [address], [place] [id number] Jul, [facility] [address] [id number] [address] [place] [address], [place] [id number] Jul, [facility] [address] [id number] [address] [place] [address], [place] [id number] Jul, [facility] [address] [id number] [address] [place] [address], [place] [address] Jul, [facility] [address] [id number] [address] [place] [address], [place] [id number] Jun, [facility] [address] [id number] [address] [place] [address], [place] [id number] 14 Jun, 2013 [facility] [address] [id number] [address] [place] [address], [place] [id number] 13 Jun, 2013 [facility] [address] [id number] [address] [place] [address], [place] [id number] 13 Jun, 2013 [facility] [address] [id number] [address] [place] [address], [place] [id number] 07 Jun, 2013 [facility] [address] [id number] [address] [place] [address], [place] [id number] 07 Jun, 2013 [facility] [address] [id number] [address] [place] [address], [place] [id number] 31 May, 2013 [facility] [address] [id number] [address] [place] [address], [place] [id number] 31 May, 2013 [facility] [address] [id number] [address] [place] [id number] 17 May, 2013 [facility] [address] [id number] [address] [place] [address], [place] [id number] 17 May, 2013 [facility] [address] [id number] [address] [place] [id number] 14 May, 2013 [facility] [address] [id number] [address] [place] [id number] 14 May, 2013 [facility] [address] [id number] [address] [place] [id number] 10 May, 2013 [facility] [address] [id number] [address] [place] [address], [place] [id number] 10 May, 2013 [facility] [address] [id number] [address] [place] [id number] 07 May, 2013 [facility] [address] [id number] [address] [place] [address], [place] [id number] 20 Apr, 2013 [facility] [address] [id number] [address] [place] [address], [place] [id number] 19 Sep, 2012 [facility] [address] [id number] [address] [place] [address], [place] [id number] 12 Sep, 2012 [facility] [address] [id number] [address] [place] [address], [place] [id number] 24 Sep, 2011 [facility] [address] [id number] [address] [place] [address], [place] [id number] 21 Sep, 2011 [facility] [address] [id number] [address] [place] [address], [place] [id number] 21 Sep, 2011 [facility] [address] [id number] [address] [place] [address], [place] [id number] 14 Apr, 2011 [facility] [address] [id number] [address] [place] [address], [place] [id number] 10 Apr, 2011 [facility] [address] [id number] [address] [place] [address], [place] [id number] 06 Apr, 2011 [facility] [address] [id number] [address] [place] [address], [place] [id number] 04 Apr, 2011 [facility] [address] [id number] [address] [place] [address], [place] [id number] 31 Mar, 2012 [facility] [address] [id number] [address] [place] [address], [place] [id number] 28 Mar, 2012 [facility] [address] [id number] [address] [place] [address], [place] [id number] 27 Mar, 2012 [facility] [address] [id number] [address] [place] [address], [place] [id number] 10 Mar, 2012 [facility] [address] [id number] [address] [place] [address], [place] [id number] 08 Mar, 2012 [facility] [address] [id number] [address] [place] [address], [place] [id number] 03 Mar, 2012 [facility] [address] [id number] [address] [place] [address], [place] [id number] 20 Feb, 2012 [facility] [address] [id number] [address] [place] [address], [place] [id number] 10 Feb, 2012 [facility] [address] [id number] [address] [place] [address], [place] [id number] Feb, [facility] [address] [id number] [address] [place] [address], [place] [id number] Jan, [facility] [address] [id number] [address] [place] [address], [place] [id number] Jan, [facility] [address] [id number] [address] [place] [address], [place] [id number] Jan, [facility] [address] [id number] [address] [place] [address], [place] [id number] Jan, [facility] [address] [id number] [address] [place] [address], [place] [id number] Jan, [facility] [address] [id number] [address] [place] [address], [place] [id number] Jan, [facility] [address] [id number] [address] [place] [address], [place] [id number] Jan, [facility] [address] [id number] [address] [place] [address], [place] [id number] Jan, [facility] [address] [id number] [address] [place] [address], [place] [id number] December, [facility] [address] [id number] [address] [place] [address], [place] [id number] December, [facility] [address] [id number] [address] [place] [address], [place] [id number] December, [facility] [address] [id number] [address] [place] [address], [place] [id number] December, [facility] [address] [id number] [address] [place] [address], [place] [id number] December, [facility] [address] [id number] [address] [place] [address], [place] [id number] December, [facility] [address] [id number] [address] [place] [address], [place] [id number] 13 Nov, 2011 [facility] [address] [id number] [address] [place] [address], [place] [id number] 13 Nov, 2011 [facility] [address] [id number] [address] [place] [address], [place] [id number] 13 Nov, 2011 [facility] [address] [id number] [address] [place] [address], [place] [id number] 13 Nov, 2011 [facility] [address] [id number] [address] [place] [address], [place] [id number] Nov, [facility] [address] [id number] [address] [place] [address], [place] [id number] 15 Oct, 2011 [facility] [address] [id number] [address] [place] [address], [place] [id number] 17 Sep, 2011 [facility] [address] [id number] [address] [place] [address], [place] [id number] Aug, [facility] [address] [id number] [address] [place] [address], [place] [id number] Aug, [facility] [address] [id number] [address] [place] [address], [place] [id number] Aug, [facility] [address] [id number] [address] [place] [address], [place] [id number] Aug, [facility] [address] [id number] [address] [place] [address], [place] [id number] Aug, [facility] [address] [id number] [address] [place] [address], [place] [id number] Jul, [facility] [address] [id number] [address] [place] [address], [place] [id number] Jul, [facility] [address] [id number] [address] [place] [address], [place] [id number] Jun, [facility] [address] [id number] [address] [place] [address], [place] [id number] 04 Jun, 2011 [facility] [address] [id number] [address] [place] [address], [place] [id number] Jun, [facility] [address] [id number] [address] [place] [address], [place] [id number] 18 May, 2011 [facility] [address] [id number] [address] [place] [address], [place] [id number] May, [facility] [address] [id number] [address] [place] [address], [place] [id number] 16 Oct, 2010 [facility] [address] [id number] [address] [place] [address], [place] [id number] Oct, [facility] [address] [id number] [address] [place] [address], [place] [id number] Jul, [facility] [address] [id number] [address] [place] [address], [place] [id number] 08 Jul, [address] [facility] [address] [id number] [address] [place] [address], [place] [id number] Jul, [facility] [address] [id number] [address] [place] [address], [place] [id number] Jul, [facility] [address] [id number] [address] [place] [address], [place] [id number] Jul, [facility] [address] [id number] [address] [place] [address], [place] [id number] Jun, [facility] [address] [id number] [address] [place] [address], [place] [id number] Jun, [facility] [address] [id number] [address] [place] [address], [place] [id number] Jun, [facility] [address] [id number] [address] [place] [address], [place] [id number] May, [facility] [address] [id number] [address] [place] [id number] 16 Mar, 2010 IMMUNIZATIONS No Known Immunizations SOCIAL HISTORY Never Assessed REASON FOR VISIT EMR-[facility] [place] PLAN OF CARE [...]
--- OUTSIDE RECORDS SUMMARY | 2019-11-28 22:58 | XMS REPORT ---
Author Author Caren Barba Doctor Organization [facility] Address Unknown Phone Unavailable Care Team Providers Care Fortune Cookie Maker Name Role Phone Migration, Doctor Unavailable Unavailable PROBLEMS Type Condition ICD9-CM Code [id number] Code Onset Dates Condition S tatus SNOMED Code Problem COPD (chronic obstructive pulmonary disease) J44.9 Active 39575904 Problem Diabetes E11.9 Active 11780825 Problem Diabetic neuropathy E11.40 Active 722180364 Problem Arthritis M19.90 Active 4320285 ALLERGIES No Information ENCOUNTERS Encounter Location Date Diagnosis [facility] [address] [id number] [address] [place] [address] December, [facility] [address] [id number] [address] [place] [address] Aug, Arthritis M19.90 [facility] [address] [id number] [address] [place] [address] Jul, [facility] [address] [id number] [address] [place] [address] Jul, [facility] [address] [facility] [id number] [address] [place] [address] Jul, [facility] [address] [id number] [address] [place] [address] Jul, [facility] [address] [id number] [address] [place] [address] Jul, Diabetes E11.9 ; Diabetic ne uropathy E11.40 ; Arthritis M19.90 and COPD (chronic obstructive pulmonary disease) J44.9 [facility] [address] [id number] [address] [place] [address] Jul, [facility] [address] [facility] [id number] [address] [place] [address] Jun, [facility] [address] [id number] [address] [place] [address], [place] [address] Jun, [facility] [address] [id number] [address] [place] [address], [place] [address] 17 Jun, 2015 [facility] [address] [id number] [address] [place] [address], [place] [address] 10 Jun, 2015 [facility] [address] [id number] [address] [place] [address], [place] [address] 15 May, 2015 [facility] [address] [id number] [address] [place] [address], [place] [address] 13 May, 2015 [facility] [address] [id number] [address] [place] [address], [place] [address] 07 May, 2015 [facility] [address] [id number] [address] [place] [address], [place] [address] 22 Apr, 2014 [facility] [address] [id number] [address] [place] [address], [place] [address] 21 Sep, 2014 [facility] [address] [id number] [address] [place] [address], [place] [address] 21 Sep, 2014 [facility] [address] [id number] [address] [place] [address] 15 Apr, 2014 [facility] [address] [id number] [address] [place] [address] 11 Sep, 2014 [facility] [address] [id number] [address] [place] [address] 09 Sep, 2014 [facility] [address] [id number] [address] [place] [address] 08 Sep, 2014 [facility] [address] [id number] [address] [place] [address] 03 Sep, 2014 [facility] [address] [id number] [address] [place] [address] 02 Sep, 2014 [facility] [address] [id number] [address] [place] [address] Mar, [facility] [address] [facility] [id number] [address] [place] [address] Mar, [facility] [address] [facility] [id number] [address] [place] [address] Mar, [facility] [address] [facility] [id number] [address] [place] [address] Mar, [facility] [address] [facility] [id number] [address] [place] [address] Mar, [facility] [address] [facility] [id number] [address] [place] [address] Mar, Diabetes mellitus 250.00 ; C OPD (chronic obstructive pulmonary disease) 496 ; Anxiety 300.00 and Arthritis 716.90 [facility] [address] [facility] [id number] [address] [place] [address] Feb, [facility] [address] [facility] [id number] [address] [place] [address] Feb, [facility] [address] [facility] [id number] [address] [place] [address] Feb, [facility] [address] [facility] [id number] [address] [place] [address] Feb, [facility] [address] [facility] [id number] [address] [place] [address] Jan, Seborrheic keratosis 702.19 and Nevus 216.9 [facility] [address] [facility] [id number] [address] [place] [address] Jan, [facility] [address] [facility] [id number] [address] [place] [address] Jan, Routine gynecological examin ation V72.31 ; Breast cancer screening V76.10 ; Hot flashes 627.2 ; Atypical nevi 216.9 and Constipation 564.00 [facility] [address] [facility] [id number] [address] [place] [address] Jan, [facility] [address] [id number] [address] [place] [address], [place] [address] December, [facility] [address] [id number] [address] [place] [address], [place] [address] December, [facility] [address] [id number] [address] [place] [address], [place] [address] 14 Nov, 2014 [facility] [address] [id number] [address] [place] [address], [place] [address] Nov, [facility] [address] [id number] [address] [place] [address], [place] [address] 23 Oct, 2014 [facility] [address] [id number] [address] [place] [address], [place] [address] 23 Oct, 2014 [facility] [address] [id number] [address] [place] [address], [place] [address] 18 Oct, 2014 [facility] [address] [id number] [address] [place] [address], [place] [address] 18 Oct, 2014 [facility] [address] [id number] [address] [place] [address], [place] [address] 17 Oct, 2014 [facility] [address] [id number] [address] [place] [address], [place] [address] 17 Oct, 2014 [facility] [address] [id number] [address] [place] [address], [place] [address] 16 Oct, 2014 [facility] [address] [id number] [address] [place] [address], [place] [address] 16 Oct, 2014 [facility] [address] [id number] [address] [place] [address], [place] [address] 11 Oct, 2014 [facility] [address] [id number] [address] [place] [address], [place] [address] Oct, [facility] [address] [id number] [address] [place] [address], [place] [address] Sep, [facility] [address] [id number] [address] [place] [address], [place] [address] 27 Sep, 2014 [facility] [address] [id number] [address] [place] [address], [place] [address] Sep, 2014 [facility] [address] [id number] [address] [place] [address], [place] [address] Sep, 2014 [facility] [address] [id number] [address] [place] [address], [place] [address] Sep, 2014 [facility] [address] [id number] [address] [place] [address], [place] [address] Sep, [facility] [address] [id number] [address] [place] [address], [place] [address] Sep, [facility] [address] [id number] [address] [place] [address], [place] [address] Aug, [facility] [address] [id number] [address] [place] [address], [place] [address] Aug, [facility] [address] [id number] [address] [place] [address], [place] [address] Aug, [facility] [address] [id number] [address] [place] [address], [place] [address] Aug, [facility] [address] [id number] [address] [place] [address], [place] [address] Aug, [facility] [address] [id number] [address] [place] [address], [place] [address] Aug, [facility] [address] [id number] [address] [place] [address], [place] [address] Jul, [facility] [address] [id number] [address] [place] [address], [place] [address] Jul, [facility] [address] [id number] [address] [place] [address], [place] [address] Jul, [facility] [address] [id number] [address] [place] [address], [place] [address] Jul, [facility] [address] [id number] [address] [place] [address], [place] [address] Jul, [facility] [address] [id number] [address] [place] [address], [place] [address] Jun, [facility] [address] [id number] [address] [place] [address], [place] [address] Jun, [facility] [address] [id number] [address] [place] [address], [place] [address] Jun, [facility] [address] [id number] [address] [place] [address], [place] [address] Jun, [facility] [address] [id number] [address] [place] [address], [place] [address] Jun, [facility] [address] [id number] [address] [place] [address], [place] [address] Jun, [facility] [address] [id number] [address] [place] [address], [place] [address] May, [facility] [address] [id number] [address] [place] [address], [place] [address] May, [facility] [address] [id number] [address] [place] [address], [place] [address] May, [facility] [address] [id number] [address] [place] [address], [place] [address] May, [facility] [address] [id number] [address] [place] [address] May, [facility] [address] [id number] [address] [place] [address], [place] [address] May, [facility] [address] [id number] [address] [place] [address], [place] [address] May, [facility] [address] [id number] [address] [place] [address], [place] [address] May, [facility] [address] [id number] [facility] [place] [address] May, [facility] [address] [id number] [facility] [place] [address] Apr, [facility] [address] [id number] [address] [place] [address], [place] [address] Apr, [facility] [address] [id number] [address] [place] [address], [place] [address] Apr, [facility] [address] [id number] [address] [place] [address], [place] [address] Apr, [facility] [address] [id number] [address] [place] [address], [place] [address] Mar, [facility] [address] [id number] [address] [place] [address], [place] [address] Mar, [facility] [address] [id number] [address] [place] [address], [place] [address] Mar, [facility] [address] [id number] [address] [place] [address], [place] [address] Mar, [facility] [address] [id number] [address] [place] [address], [place] [address] Mar, [facility] [address] [id number] [address] [place] [address], [place] [address] Mar, [facility] [address] [id number] [address] [place] [address], [place] [address] Feb, [facility] [address] [id number] [address] [place] [address], [place] [address] Feb, [facility] [address] [id number] [address] [place] [address], [place] [address] Feb, [facility] [address] [id number] [address] [place] [address], [place] [address] Feb, [facility] [address] [id number] [address] [place] [address], [place] [address] Feb, [facility] [address] [id number] [address] [place] [address], [place] [address] Feb, [facility] [address] [id number] [address] [place] [address], [place] [address] Feb, [facility] [address] [id number] [address] [place] [address], [place] [address] Feb, 2013 [facility] [address] [id number] [address] [place] [address], [place] [address] Feb, [facility] [address] [id number] [address] [place] [address], [place] [address] Feb, [facility] [address] [id number] [address] [place] [address], [place] [address] Feb, [facility] [address] [id number] [address] [place] [address], [place] [address] Feb, [facility] [address] [id number] [address] [place] [address], [place] [address] Jan, [facility] [address] [id number] [address] [place] [address], [place] [address] Jan, [facility] [address] [id number] [address] [place] [address], [place] [address] Jan, [facility] [address] [id number] [address] [place] [address], [place] [address] Jan, [facility] [address] [id number] [address] [place] [address], [place] [address] Jan, [facility] [address] [id number] [address] [place] [address], [place] [address] Jan, [facility] [address] [id number] [address] [place] [address], [place] [address] Jan, [facility] [address] [id number] [address] [place] [address], [place] [address] Jan, [facility] [address] [id number] [address] [place] [address], [place] [address] Jan, [facility] [address] [id number] [address] [place] [address], [place] [address] Jan, [facility] [address] [id number] [address] [place] [address], [place] [address] Jan, [facility] [address] [id number] [address] [place] [address], [place] [address] Jan, [facility] [address] [id number] [address] [place] [address], [place] [address] Jan, [facility] [address] [id number] [address] [place] [address], [place] [address] Jan, [facility] [address] [id number] [address] [place] [address], [place] [address] Jan, [facility] [address] [id number] [address] [place] [address], [place] [address] Jan, [facility] [address] [id number] [address] [place] [address], [place] [address] Jan, [facility] [address] [id number] [address] [place] [address], [place] [address] December, [facility] [address] [id number] [address] [place] [address], [place] [address] December, [facility] [address] [id number] [address] [place] [address], [place] [address] December, [facility] [address] [id number] [address] [place] [address], [place] [address] December, [facility] [address] [id number] [address] [place] [address], [place] [address] December, [facility] [address] [id number] [address] [place] [address], [place] [address] December, [facility] [address] [id number] [address] [place] [address], [place] [address] Nov, [facility] [address] [id number] [facility] [place] [address] Nov, [facility] [address] [id number] [address] [place] [address], [place] [address] Nov, [facility] [address] [id number] [address] [place] [address], [place] [address] Nov, [facility] [address] [id number] [address] [place] [address], [place] [address] Nov, [facility] [address] [id number] [address] [place] [address], [place] [address] Nov, [facility] [address] [id number] [address] [place] [address], [place] [address] Nov, [facility] [address] [id number] [address] [place] [address], [place] [address] Nov, [facility] [address] [id number] [address] [place] [address], [place] [address] Nov, [facility] [address] [id number] [address] [place] [address], [place] [address] Nov, [facility] [address] [id number] [address] [place] [address], [place] [address] Nov, [facility] [address] [id number] [address] [place] [address], [place] [address] Nov, [facility] [address] [id number] [address] [place] [address], [place] [address] Nov, [facility] [address] [id number] [address] [place] [address], [place] [address] Nov, [facility] [address] [id number] [address] [place] [address], [place] [address] Nov, [facility] [address] [id number] [address] [place] [address], [place] [address] Nov, [facility] [address] [id number] [address] [place] [address], [place] [address] Oct, [facility] [address] [id number] [facility] [place] [address] Oct, [facility] [address] [id number] [address] [place] [address], [place] [address] Oct, [facility] [address] [id number] [address] [place] [address], [place] [address] Oct, [facility] [address] [id number] [address] [place] [address], [place] [address] Oct, [facility] [address] [id number] [address] [place] [address], [place] [address] Oct, [facility] [address] [id number] [address] [place] [address], [place] [address] Oct, [facility] [address] [id number] [address] [place] [address], [place] [address] Oct, [facility] [address] [id number] [address] [place] [address], [place] [address] Sep, [facility] [address] [id number] [address] [place] [address], [place] [address] Sep, [facility] [address] [id number] [address] [place] [address], [place] [address] Sep, [facility] [address] [id number] [address] [place] [address], [place] [address] Sep, [facility] [address] [id number] [address] [place] [address], [place] [address] Sep, [facility] [address] [id number] [address] [place] [address], [place] [address] Sep, [facility] [address] [id number] [address] [place] [address], [place] [address] Aug, [facility] [address] [id number] [address] [place] [address], [place] [address] Aug, [facility] [address] [id number] [address] [place] [address], [place] [address] Aug, [facility] [address] [id number] [address] [place] [address], [place] [address] Aug, [facility] [address] [id number] [address] [place] [address], [place] [address] Aug, [facility] [address] [id number] [address] [place] [address], [place] [address] Aug, [facility] [address] [id number] [address] [place] [address], [place] [address] Aug, [facility] [address] [id number] [address] [place] [address], [place] [address] Aug, [facility] [address] [id number] [address] [place] [address], [place] [address] Jul, [facility] [address] [id number] [address] [place] [address], [place] [address] Jul, [facility] [address] [id number] [address] [place] [address], [place] [address] Jul, [facility] [address] [id number] [address] [place] [address], [place] [address] Jul, [facility] [address] [id number] [address] [place] [address], [place] [address] Jul, [facility] [address] [id number] [address] [place] [address], [place] [address] Jul, [facility] [address] [id number] [address] [place] [address], [place] [address] Jul, [facility] [address] [id number] [address] [place] [address], [place] [address] Jul, [facility] [address] [id number] [address] [place] [address], [place] [address] Jul, [facility] [address] [id number] [address] [place] [address], [place] [address] Jun, [facility] [address] [id number] [address] [place] [address], [place] [address] 14 Jun, 2013 [facility] [address] [id number] [address] [place] [address], [place] [address] 13 Jun, 2013 [facility] [address] [id number] [address] [place] [address], [place] [address] 13 Jun, 2013 [facility] [address] [id number] [address] [place] [address], [place] [address] 07 Jun, 2013 [facility] [address] [id number] [address] [place] [address], [place] [address] 07 Jun, 2013 [facility] [address] [id number] [address] [place] [address], [place] [address] 31 May, 2013 [facility] [address] [id number] [address] [place] [address], [place] [address] 31 May, 2013 [facility] [address] [id number] [address] [place] [address] 17 May, 2013 [facility] [address] [id number] [address] [place] [address], [place] [address] 17 May, 2013 [facility] [address] [id number] [address] [place] [address] 14 May, 2013 [facility] [address] [id number] [address] [place] [address] 14 May, 2013 [facility] [address] [id number] [address] [place] [address] 10 May, 2013 [facility] [address] [id number] [address] [place] [address], [place] [address] 10 May, 2013 [facility] [address] [id number] [address] [place] [address] 07 May, 2013 [facility] [address] [id number] [address] [place] [address], [place] [address] 20 Apr, 2013 [facility] [address] [id number] [address] [place] [address], [place] [address] 19 Sep, 2012 [facility] [address] [id number] [address] [place] [address], [place] [address] 12 Sep, 2012 [facility] [address] [id number] [address] [place] [address], [place] [address] 24 Sep, 2011 [facility] [address] [id number] [address] [place] [address], [place] [address] 21 Sep, 2011 [facility] [address] [id number] [address] [place] [address], [place] [address] 21 Sep, 2011 [facility] [address] [id number] [address] [place] [address], [place] [address] 14 Apr, 2011 [facility] [address] [id number] [address] [place] [address], [place] [address] 10 Apr, 2011 [facility] [address] [id number] [address] [place] [address], [place] [address] 06 Apr, 2011 [facility] [address] [id number] [address] [place] [address], [place] [address] 04 Apr, 2011 [facility] [address] [id number] [address] [place] [address], [place] [address] 31 Mar, 2012 [facility] [address] [id number] [address] [place] [address], [place] [id number] 28 Mar, 2012 [facility] [address] [id number] [address] [place] [address], [place] [address] 27 Mar, 2012 [facility] [address] [id number] [address] [place] [address], [place] [address] 10 Mar, 2012 [facility] [address] [id number] [address] [place] [address], [place] [address] 08 Mar, 2012 [facility] [address] [id number] [address] [place] [address], [place] [address] 03 Mar, 2012 [facility] [address] [id number] [address] [place] [address], [place] [address] 20 Feb, 2012 [facility] [address] [id number] [address] [place] [address], [place] [address] 10 Feb, 2012 [facility] [address] [id number] [address] [place] [address], [place] [address] Feb, [facility] [address] [id number] [address] [place] [address], [place] [address] Jan, [facility] [address] [id number] [address] [place] [address], [place] [address] Jan, [facility] [address] [id number] [address] [place] [address], [place] [address] Jan, [facility] [address] [id number] [address] [place] [address], [place] [address] Jan, [facility] [address] [id number] [address] [place] [address], [place] [address] Jan, [facility] [address] [id number] [address] [place] [address], [place] [address] Jan, [facility] [address] [id number] [address] [place] [address], [place] [address] Jan, [facility] [address] [id number] [address] [place] [address], [place] [address] Jan, [facility] [address] [id number] [address] [place] [address], [place] [address] December, [facility] [address] [id number] [address] [place] [address], [place] [address] December, [facility] [address] [id number] [address] [place] [address], [place] [address] December, [facility] [address] [id number] [address] [place] [address], [place] [address] December, [facility] [address] [id number] [address] [place] [address], [place] [address] December, [facility] [address] [id number] [address] [place] [address], [place] [address] December, [facility] [address] [id number] [address] [place] [address], [place] [address] 13 Nov, 2011 [facility] [address] [id number] [address] [place] [address], [place] [address] 13 Nov, 2011 [facility] [address] [id number] [address] [place] [address], [place] [address] 13 Nov, 2011 [facility] [address] [id number] [address] [place] [address], [place] [address] 13 Nov, 2011 [facility] [address] [id number] [address] [place] [address], [place] [address] Nov, [facility] [address] [id number] [address] [place] [address], [place] [address] 15 Oct, 2011 [facility] [address] [id number] [address] [place] [address], [place] [address] 17 Sep, 2011 [facility] [address] [id number] [address] [place] [address], [place] [address] Aug, [facility] [address] [id number] [address] [place] [address], [place] [address] Aug, [facility] [address] [id number] [address] [place] [address], [place] [address] Aug, [facility] [address] [id number] [address] [place] [address], [place] [address] Aug, [facility] [address] [id number] [address] [place] [address], [place] [address] Aug, [facility] [address] [id number] [address] [place] [address], [place] [address] Jul, [facility] [address] [id number] [address] [place] [address], [place] [address] Jul, [facility] [address] [id number] [address] [place] [address], [place] [address] Jun, [facility] [address] [id number] [address] [place] [address], [place] [address] 04 Jun, 2011 [facility] [address] [id number] [address] [place] [address], [place] [address] Jun, [facility] [address] [id number] [address] [place] [address], [place] [address] 18 May, 2011 [facility] [address] [id number] [address] [place] [address], [place] [address] May, [facility] [address] [id number] [address] [place] [address], [place] [address] 16 Oct, 2010 [facility] [address] [id number] [address] [place] [address], [place] [address] Oct, [facility] [address] [id number] [address] [place] [address], [place] [address] Jul, [facility] [address] [id number] [address] [place] [address], [place] [address] 08 Jul, 2010 [facility] [address] [id number] [address] [place] [address], [place] [address] Jul, [facility] [address] [id number] [address] [place] [address], [place] [address] Jul, [facility] [address] [id number] [address] [place] [address], [place] [address] Jul, [facility] [address] [id number] [address] [place] [address], [place] [address] Jun, [facility] [address] [id number] [address] [place] [address], [place] [address] Jun, [facility] [address] [id number] [address] [place] [address], [place] [address] Jun, [facility] [address] [id number] [address] [place] [address], [place] [address] May, [facility] [address] [id number] [address] [place] [address] 16 Mar, 2010 IMMUNIZATIONS No Known Immunizations [...]
--- OUTSIDE RECORDS SUMMARY | 2019-11-28 22:58 | XMS REPORT ---
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 Name Role Phone Migration, Doctor Unavailable Unavailable PROBLEMS Type Condition ICD9-CM Code [id number] Code Onset Dates Condition S tatus SNOMED Code Problem COPD (chronic obstructive pulmonary disease) J44.9 Active 50875500 Problem Diabetes E11.9 Active 48285053 Problem Diabetic neuropathy E11.40 Active 208100334 Problem Arthritis M19.90 Active 1821236 ALLERGIES No Information ENCOUNTERS Encounter Location Date Diagnosis [facility] [address] [id number] [address] [place] [address] December, [facility] [address] [id number] [address] [place] [address] Aug, Arthritis M19.90 [facility] [address] [id number] [address] [place] [address] Jul, [facility] [address] [id number] [address] [place] [id number] Jul, [facility] [address] [facility] [id number] [address] [place] [id number] Jul, [facility] [address] [id number] [address] [place] [id number] Jul, [facility] [address] [id number] [address] [place] [id number] Jul, Diabetes E11.9 ; Diabetic ne uropathy E11.40 ; Arthritis M19.90 and COPD (chronic obstructive pulmonary disease) J44.9 [facility] [address] [id number] [address] [place] [address] Jul, [facility] [address] [facility] [id number] [address] [place] [id number] Jun, [facility] [address] [id number] [address] [place] [address], [place] [address] Jun, [facility] [address] [id number] [address] [place] [address], [place] [address] 17 Jun, 2015 [facility] [address] [id number] [address] [place] [address], [place] [address] 10 Jun, 2015 [facility] [address] [id number] [address] [place] [address], [place] [address] 15 May, 2015 [facility] [address] [id number] [address] [place] [address], [place] [address] 13 May, 2015 [facility] [address] [id number] [address] [place] [address], [place] [address] 07 May, 2015 [facility] [address] [id number] [address] [place] [address], [place] [address] 22 Apr, 2014 [facility] [address] [id number] [address] [place] [address], [place] [address] 21 Sep, 2014 [facility] [address] [id number] [address] [place] [address], [place] [address] 21 Sep, 2014 [facility] [address] [id number] [address] [place] [address] 15 Apr, 2014 [facility] [address] [id number] [address] [place] [id number] 11 Sep, 2014 [facility] [address] [id number] [address] [place] [address] 09 Sep, 2014 [facility] [address] [id number] [address] [place] [id number] 08 Sep, 2014 [facility] [address] [id number] [address] [place] [address] 03 Sep, 2014 [facility] [address] [id number] [address] [place] [id number] 02 Sep, 2014 [facility] [address] [id number] [address] [place] [id number] Mar, [facility] [address] [facility] [id number] [address] [place] [address] Mar, [facility] [address] [facility] [id number] [address] [place] [id number] Mar, [facility] [address] [facility] [id number] [address] [place] [id number] Mar, [facility] [address] [facility] [id number] [address] [place] [id number] Mar, [facility] [address] [facility] [id number] [address] [place] [address] Mar, Diabetes mellitus 250.00 ; C OPD (chronic obstructive pulmonary disease) 496 ; Anxiety 300.00 and Arthritis 716.90 [facility] [address] [facility] [id number] [address] [place] [id number] Feb, [facility] [address] [facility] [id number] [address] [place] [id number] Feb, [facility] [address] [facility] [id number] [address] [place] [phone] Feb, [facility] [address] [facility] [id number] [address] [place] [address] Feb, [facility] [address] [facility] [id number] [address] [place] [address] Jan, Seborrheic keratosis 702.19 and Nevus 216.9 [facility] [address] [facility] [id number] [address] [place] [address] Jan, [facility] [address] [facility] [id number] [address] [place] [id number] Jan, Routine gynecological examin ation V72.31 ; Breast cancer screening V76.10 ; Hot flashes 627.2 ; Atypical nevi 216.9 and Constipation 564.00 [facility] [address] [facility] [id number] [address] [place] [id number] Jan, [facility] [address] [id number] [address] [place] [address], [place] [address] December, [facility] [address] [id number] [address] [place] [address], [place] [address] December, [facility] [address] [id number] [address] [place] [address], [place] [address] 14 Nov, 2014 [facility] [address] [id number] [address] [place] [address], [place] [address] Nov, [facility] [address] [id number] [address] [place] [address], [place] [address] 23 Oct, 2014 [facility] [address] [id number] [address] [place] [address], [place] [address] 23 Oct, 2014 [facility] [address] [id number] [address] [place] [address], [place] [address] 18 Oct, 2014 [facility] [address] [id number] [address] [place] [address], [place] [address] 18 Oct, 2014 [facility] [address] [id number] [address] [place] [address], [place] [address] 17 Oct, 2014 [facility] [address] [id number] [address] [place] [address], [place] [address] 17 Oct, 2014 [facility] [address] [id number] [address] [place] [address], [place] [address] 16 Oct, 2014 [facility] [address] [id number] [address] [place] [address], [place] [address] 16 Oct, 2014 [facility] [address] [id number] [address] [place] [address], [place] [address] 11 Oct, 2014 [facility] [address] [id number] [address] [place] [address], [place] [address] Oct, [facility] [address] [id number] [address] [place] [address], [place] [address] Sep, [facility] [address] [id number] [address] [place] [address], [place] [address] 27 Sep, 2014 [facility] [address] [id number] [address] [place] [address], [place] [address] Sep, 2014 [facility] [address] [id number] [address] [place] [address], [place] [address] Sep, 2014 [facility] [address] [id number] [address] [place] [address], [place] [address] Sep, 2014 [facility] [address] [id number] [address] [place] [address], [place] [address] Sep, [facility] [address] [id number] [address] [place] [address], [place] [address] Sep, [facility] [address] [id number] [address] [place] [address], [place] [address] Aug, [facility] [address] [id number] [address] [place] [address], [place] [address] Aug, [facility] [address] [id number] [address] [place] [address], [place] [address] Aug, [facility] [address] [id number] [address] [place] [address], [place] [address] Aug, [facility] [address] [id number] [address] [place] [address], [place] [address] Aug, [facility] [address] [id number] [address] [place] [address], [place] [address] Aug, [facility] [address] [id number] [address] [place] [address], [place] [address] Jul, [facility] [address] [id number] [address] [place] [address], [place] [address] Jul, [facility] [address] [id number] [address] [place] [address], [place] [address] Jul, [facility] [address] [id number] [address] [place] [address], [place] [address] Jul, [facility] [address] [id number] [address] [place] [address], [place] [address] Jul, [facility] [address] [id number] [address] [place] [address], [place] [address] Jun, [facility] [address] [id number] [address] [place] [address], [place] [address] Jun, [facility] [address] [id number] [address] [place] [address], [place] [address] Jun, [facility] [address] [id number] [address] [place] [address], [place] [address] Jun, [facility] [address] [id number] [address] [place] [address], [place] [address] Jun, [facility] [address] [id number] [address] [place] [address], [place] [address] Jun, [facility] [address] [id number] [address] [place] [address], [place] [address] May, [facility] [address] [id number] [address] [place] [address], [place] [address] May, [facility] [address] [id number] [address] [place] [address], [place] [address] May, [facility] [address] [id number] [address] [place] [address], [place] [address] May, [facility] [address] [id number] [address] [place] [address] May, [facility] [address] [id number] [address] [place] [address], [place] [address] May, [facility] [address] [id number] [address] [place] [address], [place] [address] May, [facility] [address] [id number] [address] [place] [address], [place] [address] May, [facility] [address] [id number] [facility] [place] [address] May, [facility] [address] [id number] [facility] [place] [address] Apr, [facility] [address] [id number] [address] [place] [address], [place] [address] Apr, [facility] [address] [id number] [address] [place] [address], [place] [address] Apr, [facility] [address] [id number] [address] [place] [address], [place] [address] Apr, [facility] [address] [id number] [address] [place] [address], [place] [address] Mar, [facility] [address] [id number] [address] [place] [address], [place] [address] Mar, [facility] [address] [id number] [address] [place] [address], [place] [address] Mar, [facility] [address] [id number] [address] [place] [address], [place] [address] Mar, [facility] [address] [id number] [address] [place] [address], [place] [address] Mar, [facility] [address] [id number] [address] [place] [address], [place] [address] Mar, [facility] [address] [id number] [address] [place] [address], [place] [address] Feb, [facility] [address] [id number] [address] [place] [address], [place] [address] Feb, [facility] [address] [id number] [address] [place] [address], [place] [address] Feb, [facility] [address] [id number] [address] [place] [address], [place] [address] Feb, [facility] [address] [id number] [address] [place] [address], [place] [address] Feb, [facility] [address] [id number] [address] [place] [address], [place] [address] Feb, [facility] [address] [id number] [address] [place] [address], [place] [address] Feb, [facility] [address] [id number] [address] [place] [address], [place] [address] Feb, 2013 [facility] [address] [id number] [address] [place] [address], [place] [address] Feb, [facility] [address] [id number] [address] [place] [address], [place] [address] Feb, [facility] [address] [id number] [address] [place] [address], [place] [address] Feb, [facility] [address] [id number] [address] [place] [address], [place] [address] Feb, [facility] [address] [id number] [address] [place] [address], [place] [address] Jan, [facility] [address] [id number] [address] [place] [address], [place] [address] Jan, [facility] [address] [id number] [address] [place] [address], [place] [address] Jan, [facility] [address] [id number] [address] [place] [address], [place] [address] Jan, [facility] [address] [id number] [address] [place] [address], [place] [address] Jan, [facility] [address] [id number] [address] [place] [address], [place] [address] Jan, [facility] [address] [id number] [address] [place] [address], [place] [address] Jan, [facility] [address] [id number] [address] [place] [address], [place] [address] Jan, [facility] [address] [id number] [address] [place] [address], [place] [address] Jan, [facility] [address] [id number] [address] [place] [address], [place] [address] Jan, [facility] [address] [id number] [address] [place] [address], [place] [address] Jan, [facility] [address] [id number] [address] [place] [address], [place] [address] Jan, [facility] [address] [id number] [address] [place] [address], [place] [address] Jan, [facility] [address] [id number] [address] [place] [address], [place] [address] Jan, [facility] [address] [id number] [address] [place] [address], [place] [address] Jan, [facility] [address] [id number] [address] [place] [address], [place] [address] Jan, [facility] [address] [id number] [address] [place] [address], [place] [address] Jan, [facility] [address] [id number] [address] [place] [address], [place] [address] December, [facility] [address] [id number] [address] [place] [address], [place] [address] December, [facility] [address] [id number] [address] [place] [address], [place] [address] December, [facility] [address] [id number] [address] [place] [address], [place] [address] December, [facility] [address] [id number] [address] [place] [address], [place] [address] December, [facility] [address] [id number] [address] [place] [address], [place] [address] December, [facility] [address] [id number] [address] [place] [address], [place] [address] Nov, [facility] [address] [id number] [facility] [place] [address] Nov, [facility] [address] [id number] [address] [place] [address], [place] [address] Nov, [facility] [address] [id number] [address] [place] [address], [place] [address] Nov, [facility] [address] [id number] [address] [place] [address], [place] [address] Nov, [facility] [address] [id number] [address] [place] [address], [place] [address] Nov, [facility] [address] [id number] [address] [place] [address], [place] [address] Nov, [facility] [address] [id number] [address] [place] [address], [place] [address] Nov, [facility] [address] [id number] [address] [place] [address], [place] [address] Nov, [facility] [address] [id number] [address] [place] [address], [place] [address] Nov, [facility] [address] [id number] [address] [place] [address], [place] [address] Nov, [facility] [address] [id number] [address] [place] [address], [place] [address] Nov, [facility] [address] [id number] [address] [place] [address], [place] [address] Nov, [facility] [address] [id number] [address] [place] [address], [place] [address] Nov, [facility] [address] [id number] [address] [place] [address], [place] [address] Nov, [facility] [address] [id number] [address] [place] [address], [place] [address] Nov, [facility] [address] [id number] [address] [place] [address], [place] [address] Oct, [facility] [address] [id number] [facility] [place] [address] Oct, [facility] [address] [id number] [address] [place] [address], [place] [address] Oct, [facility] [address] [id number] [address] [place] [address], [place] [address] Oct, [facility] [address] [id number] [address] [place] [address], [place] [address] Oct, [facility] [address] [id number] [address] [place] [address], [place] [address] Oct, [facility] [address] [id number] [address] [place] [address], [place] [address] Oct, [facility] [address] [id number] [address] [place] [address], [place] [address] Oct, [facility] [address] [id number] [address] [place] [address], [place] [address] Sep, [facility] [address] [id number] [address] [place] [address], [place] [address] Sep, [facility] [address] [id number] [address] [place] [address], [place] [address] Sep, [facility] [address] [id number] [address] [place] [address], [place] [address] Sep, [facility] [address] [id number] [address] [place] [address], [place] [address] Sep, [facility] [address] [id number] [address] [place] [address], [place] [address] Sep, [facility] [address] [id number] [address] [place] [address], [place] [address] Aug, [facility] [address] [id number] [address] [place] [address], [place] [address] Aug, [facility] [address] [id number] [address] [place] [address], [place] [address] Aug, [facility] [address] [id number] [address] [place] [address], [place] [address] Aug, [facility] [address] [id number] [address] [place] [address], [place] [address] Aug, [facility] [address] [id number] [address] [place] [address], [place] [address] Aug, [facility] [address] [id number] [address] [place] [address], [place] [address] Aug, [facility] [address] [id number] [address] [place] [address], [place] [address] Aug, [facility] [address] [id number] [address] [place] [address], [place] [address] Jul, [facility] [address] [id number] [address] [place] [address], [place] [address] Jul, [facility] [address] [id number] [address] [place] [address], [place] [address] Jul, [facility] [address] [id number] [address] [place] [address], [place] [address] Jul, [facility] [address] [id number] [address] [place] [address], [place] [address] Jul, [facility] [address] [id number] [address] [place] [address], [place] [address] Jul, [facility] [address] [id number] [address] [place] [address], [place] [address] Jul, [facility] [address] [id number] [address] [place] [address], [place] [address] Jul, [facility] [address] [id number] [address] [place] [address], [place] [address] Jul, [facility] [address] [id number] [address] [place] [address], [place] [address] Jun, [facility] [address] [id number] [address] [place] [address], [place] [address] 14 Jun, 2013 [facility] [address] [id number] [address] [place] [address], [place] [address] 13 Jun, 2013 [facility] [address] [id number] [address] [place] [address], [place] [address] 13 Jun, 2013 [facility] [address] [id number] [address] [place] [address], [place] [address] 07 Jun, 2013 [facility] [address] [id number] [address] [place] [address], [place] [address] 07 Jun, 2013 [facility] [address] [id number] [address] [place] [address], [place] [address] 31 May, 2013 [facility] [address] [id number] [address] [place] [address], [place] [address] 31 May, 2013 [facility] [address] [id number] [address] [place] [address] 17 May, 2013 [facility] [address] [id number] [address] [place] [address], [place] [address] 17 May, 2013 [facility] [address] [id number] [address] [place] [address] 14 May, 2013 [facility] [address] [id number] [address] [place] [address] 14 May, 2013 [facility] [address] [id number] [address] [place] [address] 10 May, 2013 [facility] [address] [id number] [address] [place] [address], [place] [address] 10 May, 2013 [facility] [address] [id number] [address] [place] [address] 07 May, 2013 [facility] [address] [id number] [address] [place] [address], [place] [address] 20 Apr, 2013 [facility] [address] [id number] [address] [place] [address], [place] [address] 19 Sep, 2012 [facility] [address] [id number] [address] [place] [address], [place] [id number] 12 Sep, 2012 [facility] [address] [id number] [address] [place] [address], [place] [address] 24 Sep, 2011 [facility] [address] [id number] [address] [place] [address], [place] [address] 21 Sep, 2011 [facility] [address] [id number] [address] [place] [address], [place] [address] 21 Sep, 2011 [facility] [address] [id number] [address] [place] [address], [place] [address] 14 Apr, 2011 [facility] [address] [id number] [address] [place] [address], [place] [address] 10 Apr, 2011 [facility] [address] [id number] [address] [place] [address], [place] [address] 06 Apr, 2011 [facility] [address] [id number] [address] [place] [address], [place] [address] 04 Apr, 2011 [facility] [address] [id number] [address] [place] [address], [place] [address] 31 Mar, 2012 [facility] [address] [id number] [address] [place] [address], [place] [address] 28 Mar, 2012 [facility] [address] [id number] [address] [place] [address], [place] [address] 27 Mar, 2012 [facility] [address] [id number] [address] [place] [address], [place] [address] 10 Mar, 2012 [facility] [address] [id number] [address] [place] [address], [place] [address] 08 Mar, 2012 [facility] [address] [id number] [address] [place] [address], [place] [address] 03 Mar, 2012 [facility] [address] [id number] [address] [place] [address], [place] [address] 20 Feb, 2012 [facility] [address] [id number] [address] [place] [address], [place] [address] 10 Feb, 2012 [facility] [address] [id number] [address] [place] [address], [place] [address] Feb, [facility] [address] [id number] [address] [place] [address], [place] [address] Jan, [facility] [address] [id number] [address] [place] [address], [place] [address] Jan, [facility] [address] [id number] [address] [place] [address], [place] [address] Jan, [facility] [address] [id number] [address] [place] [address], [place] [address] Jan, [facility] [address] [id number] [address] [place] [address], [place] [address] Jan, [facility] [address] [id number] [address] [place] [address], [place] [address] Jan, [facility] [address] [id number] [address] [place] [address], [place] [address] Jan, [facility] [address] [id number] [address] [place] [address], [place] [address] Jan, [facility] [address] [id number] [address] [place] [address], [place] [address] December, [facility] [address] [id number] [address] [place] [address], [place] [address] December, [facility] [address] [id number] [address] [place] [address], [place] [address] December, [facility] [address] [id number] [address] [place] [address], [place] [address] December, [facility] [address] [id number] [address] [place] [address], [place] [address] December, [facility] [address] [id number] [address] [place] [address], [place] [address] December, [facility] [address] [id number] [address] [place] [address], [place] [address] 13 Nov, 2011 [facility] [address] [id number] [address] [place] [address], [place] [address] 13 Nov, 2011 [facility] [address] [id number] [address] [place] [address], [place] [address] 13 Nov, 2011 [facility] [address] [id number] [address] [place] [address], [place] [address] 13 Nov, 2011 [facility] [address] [id number] [address] [place] [address], [place] [address] Nov, [facility] [address] [id number] [address] [place] [address], [place] [address] 15 Oct, 2011 [facility] [address] [id number] [address] [place] [address], [place] [address] 17 Sep, 2011 [facility] [address] [id number] [address] [place] [address], [place] [address] Aug, [facility] [address] [id number] [address] [place] [address], [place] [address] Aug, [facility] [address] [id number] [address] [place] [address], [place] [address] Aug, [facility] [address] [id number] [address] [place] [address], [place] [address] Aug, [facility] [address] [id number] [address] [place] [address], [place] [address] Aug, [facility] [address] [id number] [address] [place] [address], [place] [address] Jul, [facility] [address] [id number] [address] [place] [address], [place] [address] Jul, [facility] [address] [id number] [address] [place] [address], [place] [address] Jun, [facility] [address] [id number] [address] [place] [address], [place] [address] 04 Jun, 2011 [facility] [address] [id number] [address] [place] [address], [place] [address] Jun, [facility] [address] [id number] [address] [place] [address], [place] [address] 18 May, 2011 [facility] [address] [id number] [address] [place] [address], [place] [address] May, [facility] [address] [id number] [address] [place] [address], [place] [address] 16 Oct, 2010 [facility] [address] [id number] [address] [place] [address], [place] [address] Oct, [facility] [address] [id number] [address] [place] [address], [place] [address] Jul, [facility] [address] [id number] [address] [place] [address], [place] [address] 08 Jul, 2010 [facility] [address] [id number] [address] [place] [address], [place] [address] Jul, [facility] [address] [id number] [address] [place] [address], [place] [address] Jul, [facility] [address] [id number] [address] [place] [address], [place] [address] Jul, [facility] [address] [id number] [address] [place] [address], [place] [address] Jun, [facility] [address] [id number] [address] [place] [address], [place] [address] Jun, [facility] [address] [id number] [address] [place] [address], [place] [address] Jun, [facility] [address] [id number] [address] [place] [address], [place] [address] May, [facility] [address] [id number] [address] [place] [address] 16 Mar, 2010 IMMUNIZATIONS No Known Immunizations SOCIAL HISTORY Never Assessed REASON FOR VISIT EMR-[facility] PLAN OF CARE VITAL SIGNS MEDICATIONS Unknown [...]
--- OUTSIDE RECORDS SUMMARY | 2019-11-28 22:59 | XMS REPORT ---
Author Author Caren Barba Doctor Organization [facility] Address Unknown Phone Unavailable Care Team Providers Care Real Estate Underwriter Name Role Phone Migration, Doctor Unavailable Unavailable PROBLEMS Type Condition ICD9-CM Code [id number] Code Onset Dates Condition S tatus SNOMED Code Problem COPD (chronic obstructive pulmonary disease) J44.9 Active 88552791 Problem Diabetes E11.9 Active 06787449 Problem Diabetic neuropathy E11.40 Active 892733581 Problem Arthritis M19.90 Active 2275559 ALLERGIES No Information ENCOUNTERS Encounter Location Date Diagnosis [facility] [address] [id number] [address] [place] [address] December, [facility] [address] [id number] [address] [place] [address] Aug, Arthritis M19.90 [facility] [address] [id number] [address] [place] [address] Jul, [facility] [address] [id number] [address] [place] [address] Jul, [facility] [address] [facility] [id number] [address] [place] [address] Jul, [facility] [address] [id number] [address] [place] [address] Jul, [facility] [address] [id number] [address] [place] [address] Jul, Diabetes E11.9 ; Diabetic ne uropathy E11.40 ; Arthritis M19.90 and COPD (chronic obstructive pulmonary disease) J44.9 [facility] [address] [id number] [address] [place] [address] Jul, [facility] [address] [facility] [id number] [address] [place] [address] Jun, [facility] [address] [id number] [address] [place] [address], [place] [address] Jun, [facility] [address] [id number] [address] [place] [address], [place] [address] 17 Jun, 2015 [facility] [address] [id number] [address] [place] [address], [place] [address] 10 Jun, 2015 [facility] [address] [id number] [address] [place] [address], [place] [address] 15 May, 2015 [facility] [address] [id number] [address] [place] [address], [place] [address] 13 May, 2015 [facility] [address] [id number] [address] [place] [address], [place] [address] 07 May, 2015 [facility] [address] [id number] [address] [place] [address], [place] [address] 22 Apr, 2014 [facility] [address] [id number] [address] [place] [address], [place] [address] 21 Sep, 2014 [facility] [address] [id number] [address] [place] [address], [place] [address] 21 Sep, 2014 [facility] [address] [id number] [address] [place] [address] 15 Apr, 2014 [facility] [address] [id number] [address] [place] [address] 11 Sep, 2014 [facility] [address] [id number] [address] [place] [address] 09 Sep, 2014 [facility] [address] [id number] [address] [place] [address] 08 Sep, 2014 [facility] [address] [id number] [address] [place] [address] 03 Sep, 2014 [facility] [address] [id number] [address] [place] [address] 02 Sep, 2014 [facility] [address] [id number] [address] [place] [address] Mar, [facility] [address] [facility] [id number] [address] [place] [address] Mar, [facility] [address] [facility] [id number] [address] [place] [address] Mar, [facility] [address] [facility] [id number] [address] [place] [address] Mar, [facility] [address] [facility] [id number] [address] [place] [address] Mar, [facility] [address] [facility] [id number] [address] [place] [address] Mar, Diabetes mellitus 250.00 ; C OPD (chronic obstructive pulmonary disease) 496 ; Anxiety 300.00 and Arthritis 716.90 [facility] [address] [facility] [id number] [address] [place] [address] Feb, [facility] [address] [facility] [id number] [address] [place] [address] Feb, [facility] [address] [facility] [id number] [address] [place] [address] Feb, [facility] [address] [facility] [id number] [address] [place] [address] Feb, [facility] [address] [facility] [id number] [address] [place] [address] Jan, Seborrheic keratosis 702.19 and Nevus 216.9 [facility] [address] [facility] [id number] [address] [place] [address] Jan, [facility] [address] [facility] [id number] [address] [place] [address] Jan, Routine gynecological examin ation V72.31 ; Breast cancer screening V76.10 ; Hot flashes 627.2 ; Atypical nevi 216.9 and Constipation 564.00 [facility] [address] [facility] [id number] [address] [place] [address] Jan, [facility] [address] [id number] [address] [place] [address], [place] [address] December, [facility] [address] [id number] [address] [place] [address], [place] [address] December, [facility] [address] [id number] [address] [place] [address], [place] [address] 14 Nov, 2014 [facility] [address] [id number] [address] [place] [address], [place] [address] Nov, [facility] [address] [id number] [address] [place] [address], [place] [address] 23 Oct, 2014 [facility] [address] [id number] [address] [place] [address], [place] [address] 23 Oct, 2014 [facility] [address] [id number] [address] [place] [address], [place] [address] 18 Oct, 2014 [facility] [address] [id number] [address] [place] [address], [place] [address] 18 Oct, 2014 [facility] [address] [id number] [address] [place] [address], [place] [address] 17 Oct, 2014 [facility] [address] [id number] [address] [place] [address], [place] [address] 17 Oct, 2014 [facility] [address] [id number] [address] [place] [address], [place] [address] 16 Oct, 2014 [facility] [address] [id number] [address] [place] [address], [place] [address] 16 Oct, 2014 [facility] [address] [id number] [address] [place] [address], [place] [address] 11 Oct, 2014 [facility] [address] [id number] [address] [place] [address], [place] [address] Oct, [facility] [address] [id number] [address] [place] [address], [place] [address] Sep, [facility] [address] [id number] [address] [place] [address], [place] [address] 27 Sep, 2014 [facility] [address] [id number] [address] [place] [address], [place] [address] Sep, 2014 [facility] [address] [id number] [address] [place] [address], [place] [address] Sep, 2014 [facility] [address] [id number] [address] [place] [address], [place] [address] Sep, 2014 [facility] [address] [id number] [address] [place] [address], [place] [address] Sep, [facility] [address] [id number] [address] [place] [address], [place] [address] Sep, [facility] [address] [id number] [address] [place] [address], [place] [address] Aug, [facility] [address] [id number] [address] [place] [address], [place] [address] Aug, [facility] [address] [id number] [address] [place] [address], [place] [address] Aug, [facility] [address] [id number] [address] [place] [address], [place] [address] Aug, [facility] [address] [id number] [address] [place] [address], [place] [address] Aug, [facility] [address] [id number] [address] [place] [address], [place] [address] Aug, [facility] [address] [id number] [address] [place] [address], [place] [address] Jul, [facility] [address] [id number] [address] [place] [address], [place] [address] Jul, [facility] [address] [id number] [address] [place] [address], [place] [address] Jul, [facility] [address] [id number] [address] [place] [address], [place] [address] Jul, [facility] [address] [id number] [address] [place] [address], [place] [address] Jul, [facility] [address] [id number] [address] [place] [address], [place] [address] Jun, [facility] [address] [id number] [address] [place] [address], [place] [address] Jun, [facility] [address] [id number] [address] [place] [address], [place] [address] Jun, [facility] [address] [id number] [address] [place] [address], [place] [address] Jun, [facility] [address] [id number] [address] [place] [address], [place] [address] Jun, [facility] [address] [id number] [address] [place] [address], [place] [address] Jun, [facility] [address] [id number] [address] [place] [address], [place] [address] May, [facility] [address] [id number] [address] [place] [address], [place] [address] May, [facility] [address] [id number] [address] [place] [address], [place] [address] May, [facility] [address] [id number] [address] [place] [address], [place] [address] May, [facility] [address] [id number] [address] [place] [address] May, [facility] [address] [id number] [address] [place] [address], [place] [address] May, [facility] [address] [id number] [address] [place] [address], [place] [address] May, [facility] [address] [id number] [address] [place] [address], [place] [address] May, [facility] [address] [id number] [facility] [place] [address] May, [facility] [address] [id number] [facility] [place] [address] Apr, [facility] [address] [id number] [address] [place] [address], [place] [address] Apr, [facility] [address] [id number] [address] [place] [address], [place] [address] Apr, [facility] [address] [id number] [address] [place] [address], [place] [address] Apr, [facility] [address] [id number] [address] [place] [address], [place] [address] Mar, [facility] [address] [id number] [address] [place] [address], [place] [address] Mar, [facility] [address] [id number] [address] [place] [address], [place] [address] Mar, [facility] [address] [id number] [address] [place] [address], [place] [address] Mar, [facility] [address] [id number] [address] [place] [address], [place] [address] Mar, [facility] [address] [id number] [address] [place] [address], [place] [address] Mar, [facility] [address] [id number] [address] [place] [address], [place] [address] Feb, [facility] [address] [id number] [address] [place] [address], [place] [address] Feb, [facility] [address] [id number] [address] [place] [address], [place] [address] Feb, [facility] [address] [id number] [address] [place] [address], [place] [address] Feb, [facility] [address] [id number] [address] [place] [address], [place] [address] Feb, [facility] [address] [id number] [address] [place] [address], [place] [address] Feb, [facility] [address] [id number] [address] [place] [address], [place] [address] Feb, [facility] [address] [id number] [address] [place] [address], [place] [address] Feb, 2013 [facility] [address] [id number] [address] [place] [address], [place] [address] Feb, [facility] [address] [id number] [address] [place] [address], [place] [address] Feb, [facility] [address] [id number] [address] [place] [address], [place] [address] Feb, [facility] [address] [id number] [address] [place] [address], [place] [address] Feb, [facility] [address] [id number] [address] [place] [address], [place] [address] Jan, [facility] [address] [id number] [address] [place] [address], [place] [address] Jan, [facility] [address] [id number] [address] [place] [address], [place] [address] Jan, [facility] [address] [id number] [address] [place] [address], [place] [address] Jan, [facility] [address] [id number] [address] [place] [address], [place] [address] Jan, [facility] [address] [id number] [address] [place] [address], [place] [address] Jan, [facility] [address] [id number] [address] [place] [address], [place] [address] Jan, [facility] [address] [id number] [address] [place] [address], [place] [address] Jan, [facility] [address] [id number] [address] [place] [address], [place] [address] Jan, [facility] [address] [id number] [address] [place] [address], [place] [address] Jan, [facility] [address] [id number] [address] [place] [address], [place] [address] Jan, [facility] [address] [id number] [address] [place] [address], [place] [address] Jan, [facility] [address] [id number] [address] [place] [address], [place] [address] Jan, [facility] [address] [id number] [address] [place] [address], [place] [address] Jan, [facility] [address] [id number] [address] [place] [address], [place] [address] Jan, [facility] [address] [id number] [address] [place] [address], [place] [address] Jan, [facility] [address] [id number] [address] [place] [address], [place] [address] Jan, [facility] [address] [id number] [address] [place] [address], [place] [address] December, [facility] [address] [id number] [address] [place] [address], [place] [address] December, [facility] [address] [id number] [address] [place] [address], [place] [address] December, [facility] [address] [id number] [address] [place] [address], [place] [address] December, [facility] [address] [id number] [address] [place] [address], [place] [address] December, [facility] [address] [id number] [address] [place] [address], [place] [address] December, [facility] [address] [id number] [address] [place] [address], [place] [address] Nov, [facility] [address] [id number] [facility] [place] [address] Nov, [facility] [address] [id number] [address] [place] [address], [place] [address] Nov, [facility] [address] [id number] [address] [place] [address], [place] [address] Nov, [facility] [address] [id number] [address] [place] [address], [place] [address] Nov, [facility] [address] [id number] [address] [place] [address], [place] [address] Nov, [facility] [address] [id number] [address] [place] [address], [place] [address] Nov, [facility] [address] [id number] [address] [place] [address], [place] [address] Nov, [facility] [address] [id number] [address] [place] [address], [place] [address] Nov, [facility] [address] [id number] [address] [place] [address], [place] [address] Nov, [facility] [address] [id number] [address] [place] [address], [place] [address] Nov, [facility] [address] [id number] [address] [place] [address], [place] [address] Nov, [facility] [address] [id number] [address] [place] [address], [place] [address] Nov, [facility] [address] [id number] [address] [place] [address], [place] [address] Nov, [facility] [address] [id number] [address] [place] [address], [place] [address] Nov, [facility] [address] [id number] [address] [place] [address], [place] [address] Nov, [facility] [address] [id number] [address] [place] [address], [place] [address] Oct, [facility] [address] [id number] [facility] [place] [address] Oct, [facility] [address] [id number] [address] [place] [address], [place] [address] Oct, [facility] [address] [id number] [address] [place] [address], [place] [address] Oct, [facility] [address] [id number] [address] [place] [address], [place] [address] Oct, [facility] [address] [id number] [address] [place] [address], [place] [address] Oct, [facility] [address] [id number] [address] [place] [address], [place] [address] Oct, [facility] [address] [id number] [address] [place] [address], [place] [address] Oct, [facility] [address] [id number] [address] [place] [address], [place] [address] Sep, [facility] [address] [id number] [address] [place] [address], [place] [address] Sep, [facility] [address] [id number] [address] [place] [address], [place] [address] Sep, [facility] [address] [id number] [address] [place] [address], [place] [address] Sep, [facility] [address] [id number] [address] [place] [address], [place] [address] Sep, [facility] [address] [id number] [address] [place] [address], [place] [address] Sep, [facility] [address] [id number] [address] [place] [address], [place] [address] Aug, [facility] [address] [id number] [address] [place] [address], [place] [address] Aug, [facility] [address] [id number] [address] [place] [address], [place] [address] Aug, [facility] [address] [id number] [address] [place] [address], [place] [address] Aug, [facility] [address] [id number] [address] [place] [address], [place] [address] Aug, [facility] [address] [id number] [address] [place] [address], [place] [address] Aug, [facility] [address] [id number] [address] [place] [address], [place] [address] Aug, [facility] [address] [id number] [address] [place] [address], [place] [address] Aug, [facility] [address] [id number] [address] [place] [address], [place] [address] Jul, [facility] [address] [id number] [address] [place] [address], [place] [address] Jul, [facility] [address] [id number] [address] [place] [address], [place] [address] Jul, [facility] [address] [id number] [address] [place] [address], [place] [address] Jul, [facility] [address] [id number] [address] [place] [address], [place] [address] Jul, [facility] [address] [id number] [address] [place] [address], [place] [address] Jul, [facility] [address] [id number] [address] [place] [address], [place] [address] Jul, [facility] [address] [id number] [address] [place] [address], [place] [address] Jul, [facility] [address] [id number] [address] [place] [address], [place] [address] Jul, [facility] [address] [id number] [address] [place] [address], [place] [address] Jun, [facility] [address] [id number] [address] [place] [address], [place] [address] 14 Jun, 2013 [facility] [address] [id number] [address] [place] [address], [place] [address] 13 Jun, 2013 [facility] [address] [id number] [address] [place] [address], [place] [address] 13 Jun, 2013 [facility] [address] [id number] [address] [place] [address], [place] [address] 07 Jun, 2013 [facility] [address] [id number] [address] [place] [address], [place] [address] 07 Jun, 2013 [facility] [address] [id number] [address] [place] [address], [place] [address] 31 May, 2013 [facility] [address] [id number] [address] [place] [address], [place] [address] 31 May, 2013 [facility] [address] [id number] [address] [place] [id number] 17 May, 2013 [facility] [address] [id number] [address] [place] [address], [place] [address] 17 May, 2013 [facility] [address] [id number] [address] [place] [id number] 14 May, 2013 [facility] [address] [id number] [address] [place] [id number] 14 May, 2013 [facility] [address] [id number] [address] [place] [id number] 10 May, 2013 [facility] [address] [id number] [address] [place] [address], [place] [address] 10 May, 2013 [facility] [address] [id number] [address] [place] [id number] 07 May, 2013 [facility] [address] [id number] [address] [place] [address], [place] [address] 20 Apr, 2013 [facility] [address] [id number] [address] [place] [address], [place] [address] 19 Sep, 2012 [facility] [address] [id number] [address] [place] [address], [place] [address] 12 Sep, 2012 [facility] [address] [id number] [address] [place] [address], [place] [address] 24 Sep, 2011 [facility] [address] [id number] [address] [place] [address], [place] [address] 21 Sep, 2011 [facility] [address] [id number] [address] [place] [address], [place] [address] 21 Sep, 2011 [facility] [address] [id number] [address] [place] [address], [place] [address] 14 Apr, 2011 [facility] [address] [id number] [address] [place] [address], [place] [address] 10 Apr, 2011 [facility] [address] [id number] [address] [place] [address], [place] [address] 06 Apr, 2011 [facility] [address] [id number] [address] [place] [address], [place] [address] 04 Apr, 2011 [facility] [address] [id number] [address] [place] [address], [place] [id number] 31 Mar, 2012 [facility] [address] [id number] [address] [place] [address], [place] [address] 28 Mar, 2012 [facility] [address] [id number] [address] [place] [address], [place] [address] 27 Mar, 2012 [facility] [address] [id number] [address] [place] [address], [place] [address] 10 Mar, 2012 [facility] [address] [id number] [address] [place] [address], [place] [address] 08 Mar, 2012 [facility] [address] [id number] [address] [place] [address], [place] [address] 03 Mar, 2012 [facility] [address] [id number] [address] [place] [address], [place] [address] 20 Feb, 2012 [facility] [address] [id number] [address] [place] [address], [place] [address] 10 Feb, 2012 [facility] [address] [id number] [address] [place] [address], [place] [address] Feb, [facility] [address] [id number] [address] [place] [address], [place] [address] Jan, [facility] [address] [id number] [address] [place] [address], [place] [address] Jan, [facility] [address] [id number] [address] [place] [address], [place] [address] Jan, [facility] [address] [id number] [address] [place] [address], [place] [address] Jan, [facility] [address] [id number] [address] [place] [address], [place] [address] Jan, [facility] [address] [id number] [address] [place] [address], [place] [address] Jan, [facility] [address] [id number] [address] [place] [address], [place] [address] Jan, [facility] [address] [id number] [address] [place] [address], [place] [address] Jan, [facility] [address] [id number] [address] [place] [address], [place] [address] December, [facility] [address] [id number] [address] [place] [address], [place] [address] December, [facility] [address] [id number] [address] [place] [address], [place] [address] December, [facility] [address] [id number] [address] [place] [address], [place] [address] December, [facility] [address] [id number] [address] [place] [address], [place] [address] December, [facility] [address] [id number] [address] [place] [address], [place] [address] December, [facility] [address] [id number] [address] [place] [address], [place] [address] 13 Nov, 2011 [facility] [address] [id number] [address] [place] [address], [place] [address] 13 Nov, 2011 [facility] [address] [id number] [address] [place] [address], [place] [address] 13 Nov, 2011 [facility] [address] [id number] [address] [place] [address], [place] [address] 13 Nov, 2011 [facility] [address] [id number] [address] [place] [address], [place] [address] Nov, [facility] [address] [id number] [address] [place] [address], [place] [address] 15 Oct, 2011 [facility] [address] [id number] [address] [place] [address], [place] [address] 17 Sep, 2011 [facility] [address] [id number] [address] [place] [address], [place] [address] Aug, [facility] [address] [id number] [address] [place] [address], [place] [address] Aug, [facility] [address] [id number] [address] [place] [address], [place] [address] Aug, [facility] [address] [id number] [address] [place] [address], [place] [address] Aug, [facility] [address] [id number] [address] [place] [address], [place] [address] Aug, [facility] [address] [id number] [address] [place] [address], [place] [address] Jul, [facility] [address] [id number] [address] [place] [address], [place] [address] Jul, [facility] [address] [id number] [address] [place] [address], [place] [address] Jun, [facility] [address] [id number] [address] [place] [address], [place] [address] 04 Jun, 2011 [facility] [address] [id number] [address] [place] [address], [place] [address] Jun, [facility] [address] [id number] [address] [place] [address], [place] [address] 18 May, 2011 [facility] [address] [id number] [address] [place] [address], [place] [address] May, [facility] [address] [id number] [address] [place] [address], [place] [address] 16 Oct, 2010 [facility] [address] [id number] [address] [place] [address], [place] [address] Oct, [facility] [address] [id number] [address] [place] [address], [place] [address] Jul, [facility] [address] [id number] [address] [place] [address], [place] [address] [address], [address] [facility] [address] [id number] [address] [place] [address], [place] [address] Jul, [facility] [address] [id number] [address] [place] [address], [place] [address] Jul, [facility] [address] [id number] [address] [place] [address], [place] [address] Jul, [facility] [address] [id number] [address] [place] [address], [place] [address] Jun, [facility] [address] [id number] [address] [place] [address], [place] [address] Jun, [facility] [address] [id number] [address] [place] [address], [place] [address] Jun, [facility] [address] [id number] [address] [place] [address], [place] [address] May, [facility] [address] [id number] [address] [place] [id number] 16 Mar, 2010 IMMUNIZATIONS No Known Immunizations SOCIAL HISTORY Never Assessed REASON FOR VISIT EMR-[facility] [place] OF CARE VITAL SIGNS MEDICATIONS Unknown [...]
--- OUTSIDE RECORDS SUMMARY | 2019-11-28 23:00 | XMS REPORT | Continuity of Care Document ---
Author Organization Unknown Address Unknown Phone Unavailable Allergies There is no data. Medications There is no data. Problems Date Dx Coded Attending Type Code Diagnosis Diagnosed By 02/21/2010 LAURIE LYLE MD 110.1 ONYCHOMYCOSIS 02/21/2010 LAURIE LYLE MD 250.0 0 DIABETES II CONTROLLED 02/21/2010 LAURIE LYLE MD 311 DEPRESSION SEASONAL PATTERN 02/21/2010 LAURIE LYLE MD 401.0 Hypertension Malignant Essential 02/21/2010 LAURIE LYLE MD CHRONIC OBSTRUCTIVE PULMONARY DISEASE 02/21/2010 LAURIE LYLE MD 110.1 ONYCHOMYCOSIS 02/21/2010 LAURIE LYLE MD 250.0 0 DIABETES II CONTROLLED 02/21/2010 LAURIE LYLE MD 311 DEPRESSION SEASONAL PATTERN 02/21/2010 LAURIE LYLE MD 401.0 Hypertension Malignant Essential 02/21/2010 LAURIE LYLE MD CHRONIC OBSTRUCTIVE PULMONARY DISEASE 02/21/2010 LAURIE LYLE MD 110.1 ONYCHOMYCOSIS 02/21/2010 LAURIE LYLE MD 250.0 0 DIABETES II CONTROLLED 02/21/2010 LAURIE LYLE MD 311 DEPRESSION SEASONAL PATTERN 02/21/2010 LAURIE LYLE MD 401.0 Hypertension Malignant Essential 02/21/2010 LAURIE LYLE MD CHRONIC OBSTRUCTIVE PULMONARY DISEASE 02/21/2010 LAURIE LYLE MD 110.1 ONYCHOMYCOSIS 02/21/2010 LAURIE LYLE MD 250.0 0 DIABETES II CONTROLLED 02/21/2010 LAURIE LYLE MD 311 DEPRESSION SEASONAL PATTERN 02/21/2010 LAURIE LYLE MD 401.0 Hypertension Malignant Essential 02/21/2010 LAURIE LYLE MD CHRONIC OBSTRUCTIVE PULMONARY DISEASE 02/21/2010 LAURIE LYLE MD 110.1 ONYCHOMYCOSIS 02/21/2010 LAURIE LYLE MD 250.0 0 DIABETES II CONTROLLED 02/21/2010 LAURIE LYLE MD 311 DEPRESSION SEASONAL PATTERN 02/21/2010 LAURIE LYLE MD 401.0 Hypertension Malignant Essential 02/21/2010 VALDO PATRICK, LAURIE 496 CHRONIC OBSTRUCTIVE PULMONARY DISEASE 02/21/2010 VALDO PATRICK, LAURIE 110.1 ONYCHOMYCOSIS 02/21/2010 VALDO PATRICK, LAURIE 250.0 0 DIABETES II CONTROLLED 02/21/2010 VALDO PATRICK, LAURIE 311 DEPRESSION SEASONAL PATTERN 02/21/2010 VALDO PATRICK, LAURIE 401.0 Hypertension Malignant Essential 02/21/2010 VALDO PATRICK, LAURIE 496 CHRONIC OBSTRUCTIVE PULMONARY DISEASE 02/21/2010 VALDO PATRICK, LAURIE 110.1 ONYCHOMYCOSIS 02/21/2010 VALDO PATRICK, LAURIE 250.0 0 DIABETES II CONTROLLED 02/21/2010 VALDO PATRICK, LAURIE 311 DEPRESSION SEASONAL PATTERN 02/21/2010 VALDO PATRICK, LAURIE 401.0 Hypertension Malignant Essential 02/21/2010 VALDO PATRICK, LAURIE 496 CHRONIC OBSTRUCTIVE PULMONARY DISEASE 02/21/2010 VALDO PATRICK, LAURIE 110.1 ONYCHOMYCOSIS 02/21/2010 VALDO PATRICK, LAURIE 250.0 0 DIABETES II CONTROLLED 02/21/2010 VALDO PATRICK, LAURIE 311 DEPRESSION SEASONAL PATTERN 02/21/2010 VALDO PATRICK, LAURIE 401.0 Hypertension Malignant Essential 02/21/2010 VALDO PATRICK, LAURIE 496 CHRONIC OBSTRUCTIVE PULMONARY DISEASE 02/21/2010 VALDO PATRICK, LAURIE 110.1 ONYCHOMYCOSIS 02/21/2010 VALDO PATRICK, LAURIE 250.0 0 DIABETES II CONTROLLED 02/21/2010 VALDO PATRICK, LAURIE 311 DEPRESSION SEASONAL PATTERN 02/21/2010 VALDO PATRICK, LAURIE 401.0 Hypertension Malignant Essential 02/21/2010 VALDO PATRICK, LAURIE 496 CHRONIC OBSTRUCTIVE PULMONARY DISEASE 02/21/2010 VALDO PATRICK, LAURIE 110.1 ONYCHOMYCOSIS 02/21/2010 VALDO PATRICK, LAURIE 250.0 0 DIABETES II CONTROLLED 02/21/2010 VALDO PATRICK, LAURIE 311 DEPRESSION SEASONAL PATTERN 02/21/2010 VALDO PATRICK, LAURIE 401.0 Hypertension Malignant Essential 02/21/2010 VALDO PATRICK, LAURIE 496 CHRONIC OBSTRUCTIVE PULMONARY DISEASE 02/21/2010 VALDO PATRICK, LAURIE 110.1 ONYCHOMYCOSIS 02/21/2010 LAURIE LYLE MD 250.0 0 DIABETES II CONTROLLED 02/21/2010 VALDO PATRICK, LAURIE 311 DEPRESSION SEASONAL PATTERN 02/21/2010 LAURIE LYLE MD 401.0 Hypertension Malignant Essential 02/21/2010 LAURIE LYLE MD 496 CHRONIC OBSTRUCTIVE PULMONARY DISEASE 02/21/2010 KAUR DO, RADHA K 110.1 ONYCHOMYCOSIS 02/21/2010 KAUR DO, ARDHA K 250.00 DIABETES II CONTROLLED 02/21/2010 KAUR DO, RADHA K 311 DEPRESSION SEASONAL PATTERN 02/21/2010 KAUR DO, RADHA K 401.0 Hypertension Malignant Essential 02/21/2010 VINCENT WINKLER RADHA K 496 CHRONIC OBSTRUCTIVE PULMONARY DISEASE 02/21/2010 LAURIE LYLE MD 110.1 ONYCHOMYCOSIS 02/21/2010 LAURIE LYLE MD 250.0 0 DIABETES II CONTROLLED 02/21/2010 LAURIE LYLE MD 311 DEPRESSION SEASONAL PATTERN 02/21/2010 LAURIE LYLE MD 401.0 Hypertension Malignant Essential 02/21/2010 LAURIE LYLE MD CHRONIC OBSTRUCTIVE PULMONARY DISEASE 02/21/2010 LAURIE LYLE MD 110.1 ONYCHOMYCOSIS 02/21/2010 LAURIE LYLE MD 250.0 0 DIABETES II CONTROLLED 02/21/2010 LAURIE LYLE MD 311 DEPRESSION SEASONAL PATTERN 02/21/2010 LAURIE LYLE MD 401.0 Hypertension Malignant Essential 02/21/2010 LAURIE LYLE MD CHRONIC OBSTRUCTIVE PULMONARY DISEASE 02/21/2010 LAURIE LYLE MD 110.1 ONYCHOMYCOSIS 02/21/2010 LAURIE LYLE MD 250.0 0 DIABETES II CONTROLLED 02/21/2010 LAURIE LYLE MD 311 DEPRESSION SEASONAL PATTERN 02/21/2010 LAURIE LYLE MD 401.0 Hypertension Malignant Essential 02/21/2010 LAURIE LYLE MD 49Jose CHRONIC OBSTRUCTIVE PULMONARY DISEASE 02/21/2010 VINCENT DO RADHA K 110.1 ONYCHOMYCOSIS 02/21/2010 KAUR DO, RADHA K 250.00 DIABETES II CONTROLLED 02/21/2010 KAUR DO RADHA K 311 DEPRESSION SEASONAL PATTERN 02/21/2010 KAUR DO RADHA K 401.0 Hypertension Malignant Essential 02/21/2010 KAUR DO, RADHA K 496 CHRONIC OBSTRUCTIVE PULMONARY DISEASE 02/21/2010 LAURIE LYLE MD 110.1 ONYCHOMYCOSIS 02/21/2010 LAURIE LYLE MD 250.0 0 DIABETES II CONTROLLED 02/21/2010 LAURIE LYLE MD 311 DEPRESSION SEASONAL PATTERN 02/21/2010 VALDO PATRICK, LAURIE 401.0 Hypertension Malignant Essential 02/21/2010 LAURIE LYLE MD 496 CHRONIC OBSTRUCTIVE PULMONARY DISEASE 02/21/2010 LAURIE LYLE MD 110.1 ONYCHOMYCOSIS 02/21/2010 LAURIE LYLE MD 250.0 0 DIABETES II CONTROLLED 02/21/2010 LAURIE LYLE MD 311 DEPRESSION SEASONAL PATTERN 02/21/2010 VALDO PATRICK, LAURIE 401.0 Hypertension Malignant Essential 02/21/2010 LAURIE LYLE MD 496 CHRONIC OBSTRUCTIVE PULMONARY DISEASE 02/21/2010 LAURIE LYLE MD 110.1 ONYCHOMYCOSIS 02/21/2010 LAURIE LYLE MD 250.0 0 DIABETES II CONTROLLED 02/21/2010 LAURIE LYLE MD 311 DEPRESSION SEASONAL PATTERN 02/21/2010 VALDO PATRICK, LAURIE 401.0 Hypertension Malignant Essential 02/21/2010 LAURIE LYLE MD 496 CHRONIC OBSTRUCTIVE PULMONARY DISEASE 02/21/2010 LAURIE LYLE MD 110.1 ONYCHOMYCOSIS 02/21/2010 LAURIE LYLE MD 250.0 0 DIABETES II CONTROLLED 02/21/2010 LAURIE LYLE MD 311 DEPRESSION SEASONAL PATTERN 02/21/2010 LAURIE LYLE MD 401.0 Hypertension Malignant Essential 02/21/2010 LAURIE LYLE MD 496 CHRONIC OBSTRUCTIVE PULMONARY DISEASE 02/21/2010 VINCENT WINKLER RADHA K 110.1 ONYCHOMYCOSIS 02/21/2010 VINCENT WINKLER RADHA K 250.00 DIABETES II CONTROLLED 02/21/2010 RADHA KAUR DO K 311 DEPRESSION SEASONAL PATTERN 02/21/2010 RADHA KAUR DO K 401.0 Hypertension Malignant Essential 02/21/2010 VINCENT WINKLER RADHA K 496 CHRONIC OBSTRUCTIVE PULMONARY DISEASE 02/21/2010 LAURIE LYLE MD 110.1 ONYCHOMYCOSIS 02/21/2010 LAURIE LYLE MD 250.0 0 DIABETES II CONTROLLED 02/21/2010 LAURIE LYLE MD 311 DEPRESSION SEASONAL PATTERN 02/21/2010 LAURIE LYLE MD 401.0 Hypertension Malignant Essential 02/21/2010 LAURIE LYLE MD 496 CHRONIC OBSTRUCTIVE PULMONARY DISEASE 02/21/2010 LAURIE LYLE MD 110.1 ONYCHOMYCOSIS 02/21/2010 LAURIE LYLE MD 250.0 0 DIABETES II CONTROLLED 02/21/2010 LAURIE LYLE MD 311 DEPRESSION SEASONAL PATTERN 02/21/2010 LAURIE LYLE MD 401.0 Hypertension Malignant Essential 02/21/2010 LAURIE LYLE MD 496 CHRONIC OBSTRUCTIVE PULMONARY DISEASE 04/07/2010 LAURIE LYLE MD 786.5 0 Chest Pain 04/07/2010 LAURIE LYLE MD 786.5 0 Chest Pain 04/07/2010 LUARIE LYLE MD 786.5 0 Chest Pain 04/07/2010 LAURIE LYLE MD 786.5 0 Chest Pain 04/07/2010 LAURIE LYLE MD 786.5 0 Chest Pain 04/07/2010 LAURIE LYLE MD 786.5 0 Chest Pain 04/07/2010 LAURIE LYLE MD 786.5 0 Chest Pain 04/07/2010 LAURIE LYLE MD 786.5 0 Chest Pain 04/07/2010 LAURIE LYLE MD 786.5 0 Chest Pain 04/07/2010 LAURIE LYLE MD 786.5 0 Chest Pain 04/07/2010 LAURIE LYLE MD 786.5 0 Chest Pain 04/07/2010 RADHA KAUR DO K 786.50 Chest Pain 04/07/2010 LAURIE LYLE MD 786.5 0 Chest Pain 04/07/2010 LAURIE LYLE MD 786.5 0 Chest Pain 04/07/2010 LAURIE LYLE MD 786.5 0 Chest Pain 04/07/2010 RADHA KAUR DO K 786.50 Chest Pain 04/07/2010 LAURIE LYLE MD 786.5 0 Chest Pain 04/07/2010 LAURIE LYLE MD 786.5 0 Chest Pain 04/07/2010 LAURIE LYLE MD 786.5 0 Chest Pain 04/07/2010 LAURIE LYLE MD 786.5 0 Chest Pain 04/07/2010 KAUR RADHA WINKLER K 786.50 Chest Pain 04/07/2010 LAURIE LYLE MD 786.5 0 Chest Pain 04/07/2010 LAURIE LYLE MD 786.5 0 Chest Pain 04/16/2010 LAURIE LYLE MD 414.0 1 CAD 04/16/2010 LAURIE LYLE MD 414.0 1 CAD 04/16/2010 LAURIE LYLE MD 414.0 1 CAD 04/16/2010 LAURIE LYLE MD 414.0 1 CAD 04/16/2010 VALDO PATRICK, LAURIE 414.0 1 CAD 04/16/2010 VALDO PATRICK, LAURIE 414.0 1 CAD 04/16/2010 VALDO PATRICK, LAURIE 414.0 1 CAD 04/16/2010 VALDO PATRICK, LAURIE 414.0 1 CAD 04/16/2010 VALDO PATRICK, LAURIE 414.0 1 CAD 04/16/2010 VALDO PATRICK, LAURIE 414.0 1 CAD 04/16/2010 VALDO PATRICK, LAURIE 414.0 1 CAD 04/16/2010 KAUR RADHA WINKLER 414.01 CAD 04/16/2010 VALDO PATRICK, LAURIE 414.0 1 CAD 04/16/2010 VALDO PATRICK, LAURIE 414.0 1 CAD 04/16/2010 VALDO PATRICK, LAURIE 414.0 1 CAD 04/16/2010 RADHA KAUR DO 414.01 CAD 04/16/2010 VALDO PATRICK, LAURIE 414.0 1 CAD 04/16/2010 LAURIE LYLE MD 414.0 1 CAD 04/16/2010 LAURIE LYLE MD 414.0 1 CAD 04/16/2010 VALDO PATRICK, LAURIE 414.0 1 CAD 04/16/2010 KAUR RADHA WINKLER 414.01 CAD 04/16/2010 VALDO PATRICK, LAURIE 414.0 1 CAD 04/16/2010 LAURIE LYLE MD 414.0 1 CAD 07/25/2010 LAURIE LYLE MD V03.8 2 Pcv7 Pcv13 Pcv23, Streptococcus Pneumoniae [pneumococcus] 07/25/2010 LAURIE LYLE MD V03.8 2 Pcv7 Pcv13 Pcv23, Streptococcus Pneumoniae [pneumococcus] 07/25/2010 LAURIE LYLE MD V03.8 2 Pcv7 Pcv13 Pcv23, Streptococcus Pneumoniae [pneumococcus] 07/25/2010 LAURIE LYLE MD V03.8 2 Pcv7 Pcv13 Pcv23, Streptococcus Pneumoniae [pneumococcus] 07/25/2010 LAURIE LYLE MD V03.8 2 Pcv7 Pcv13 Pcv23, Streptococcus Pneumoniae [pneumococcus] 07/25/2010 LAURIE LYLE MD V03.8 2 Pcv7 Pcv13 Pcv23, Streptococcus Pneumoniae [pneumococcus] 07/25/2010 LAURIE LYLE MD V03.8 2 Pcv7 Pcv13 Pcv23, Streptococcus Pneumoniae [pneumococcus] 07/25/2010 LAURIE LYLE MD V03.8 2 Pcv7 Pcv13 Pcv23, Streptococcus Pneumoniae [pneumococcus] 07/25/2010 LAURIE LYLE MD V03.8 2 Pcv7 Pcv13 Pcv23, Streptococcus Pneumoniae [pneumococcus] 07/25/2010 LAURIE LYLE MD V03.8 2 Pcv7 Pcv13 Pcv23, Streptococcus Pneumoniae [pneumococcus] 07/25/2010 LAURIE LYLE MD V03.8 2 Pcv7 Pcv13 Pcv23, Streptococcus Pneumoniae [pneumococcus] 07/25/2010 KAUR DO, RADHA Walsh V03.82 Pcv7 Pcv13 Pcv23, Streptococcus Pneumoniae [pneumococcus] 07/25/2010 LAURIE LYLE MD V03.8 2 Pcv7 Pcv13 Pcv23, Streptococcus Pneumoniae [pneumococcus] 07/25/2010 LAURIE LYLE MD V03.8 2 Pcv7 Pcv13 Pcv23, Streptococcus Pneumoniae [pneumococcus] 07/25/2010 LAURIE LYLE MD V03.8 2 Pcv7 Pcv13 Pcv23, Streptococcus Pneumoniae [pneumococcus] 07/25/2010 KAUR , RADHA Walsh V03.82 Pcv7 Pcv13 Pcv23, Streptococcus Pneumoniae [pneumococcus] 07/25/2010 LAURIE LYLE MD V03.8 2 Pcv7 Pcv13 Pcv23, Streptococcus Pneumoniae [pneumococcus] 07/25/2010 LAURIE LYLE MD V03.8 2 Pcv7 Pcv13 Pcv23, Streptococcus Pneumoniae [pneumococcus] 07/25/2010 LAURIE LYLE MD V03.8 2 Pcv7 Pcv13 Pcv23, Streptococcus Pneumoniae [pneumococcus] 07/25/2010 LAURIE LYLE MD V03.8 2 Pcv7 Pcv13 Pcv23, Streptococcus Pneumoniae [pneumococcus] 07/25/2010 KAUR , RADHA Walsh V03.82 Pcv7 Pcv13 Pcv23, Streptococcus Pneumoniae [pneumococcus] 07/25/2010 LAURIE LYLE MD V03.8 2 Pcv7 Pcv13 Pcv23, Streptococcus Pneumoniae [pneumococcus] 07/25/2010 LAURIE LYLE MD V03.8 2 Pcv7 Pcv13 Pcv23, Streptococcus Pneumoniae [pneumococcus] 07/28/2010 [...] PATRICK, LAURIE 401.9 UNSPECIFIED ESSENTIAL HYPERTENSION 07/28/2010 VALOD PATRICK, LAURIE 401.9 UNSPECIFIED ESSENTIAL HYPERTENSION 07/28/2010 [...] PATRICK, LAURIE 401.9 UNSPECIFIED ESSENTIAL HYPERTENSION 08/28/2010 LAURIE LYLE MD 491.2 1 OBSTRUCTIVE CHRONIC BRONCHITIS WITH (ACUTE) EXACERBATION 08/28/2010 LAURIE LYLE MD1.2 1 OBSTRUCTIVE CHRONIC BRONCHITIS WITH (ACUTE) EXACERBATION 08/28/2010 LAURIE LYLE MD 491.2 1 OBSTRUCTIVE CHRONIC BRONCHITIS WITH (ACUTE) EXACERBATION 08/28/2010 LAURIE LYLE MD 491.2 1 OBSTRUCTIVE CHRONIC BRONCHITIS WITH (ACUTE) EXACERBATION 08/28/2010 LAURIE LYLE MD1.2 1 OBSTRUCTIVE CHRONIC BRONCHITIS WITH (ACUTE) EXACERBATION 08/28/2010 LAURIE LYLE MD 491.2 1 OBSTRUCTIVE CHRONIC BRONCHITIS WITH (ACUTE) EXACERBATION 08/28/2010 LAURIE LYLE MD 491.2 1 OBSTRUCTIVE CHRONIC BRONCHITIS WITH (ACUTE) EXACERBATION 08/28/2010 LAURIE LYLE MD 491.2 1 OBSTRUCTIVE CHRONIC BRONCHITIS WITH (ACUTE) EXACERBATION 08/28/2010 LAURIE LYLE MD 491.2 1 OBSTRUCTIVE CHRONIC BRONCHITIS WITH (ACUTE) EXACERBATION 08/28/2010 LAURIE LYLE MD 491.2 1 OBSTRUCTIVE CHRONIC BRONCHITIS WITH (ACUTE) EXACERBATION 08/28/2010 LAURIE LYLE MD 491.2 1 OBSTRUCTIVE CHRONIC BRONCHITIS WITH (ACUTE) EXACERBATION 08/28/2010 RADHA KAUR DO 491.21 OBSTRUCTIVE CHRONIC BRONCHITIS WITH (ACUTE) EXACERBATION 08/28/2010 LAURIE LYLE MD 491.2 1 OBSTRUCTIVE CHRONIC BRONCHITIS WITH (ACUTE) EXACERBATION 08/28/2010 LAURIE LYLE MD 491.2 1 OBSTRUCTIVE CHRONIC BRONCHITIS WITH (ACUTE) EXACERBATION 08/28/2010 LAURIE LYLE MD 491.2 1 OBSTRUCTIVE CHRONIC BRONCHITIS WITH (ACUTE) EXACERBATION 08/28/2010 RADHA KAUR DO 491.21 OBSTRUCTIVE CHRONIC BRONCHITIS WITH (ACUTE) EXACERBATION 08/28/2010 LAURIE LYLE MD 491.2 1 OBSTRUCTIVE CHRONIC BRONCHITIS WITH (ACUTE) EXACERBATION 08/28/2010 LAURIE LYLE MD 491.2 1 OBSTRUCTIVE CHRONIC BRONCHITIS WITH (ACUTE) EXACERBATION 08/28/2010 LAURIE LYLE MD 491.2 1 OBSTRUCTIVE CHRONIC BRONCHITIS WITH (ACUTE) EXACERBATION 08/28/2010 LAURIE LYLE MD 491.2 1 OBSTRUCTIVE CHRONIC BRONCHITIS WITH (ACUTE) EXACERBATION 08/28/2010 RADHA KAUR DO 491.21 OBSTRUCTIVE CHRONIC BRONCHITIS WITH (ACUTE) EXACERBATION 08/28/2010 LAURIE LYLE MD 491.2 1 OBSTRUCTIVE CHRONIC BRONCHITIS WITH (ACUTE) EXACERBATION 08/28/2010 LAURIE LYLE MD 491.2 1 OBSTRUCTIVE CHRONIC BRONCHITIS WITH (ACUTE) EXACERBATION 10/21/2010 LAURIE LYLE MD 278.0 0 OBESITY UNSPECIFIED 10/21/2010 LAURIE LYLE MD 278.0 0 OBESITY UNSPECIFIED 10/21/2010 LAURIE LYLE MD 278.0 0 OBESITY UNSPECIFIED 10/21/2010 LAURIE LYLE MD 278.0 0 OBESITY UNSPECIFIED 10/21/2010 LAURIE LYLE MD 278.0 0 OBESITY UNSPECIFIED 10/21/2010 LAURIE LYLE MD 278.0 0 OBESITY UNSPECIFIED 10/21/2010 LAURIE LYLE MD 278.0 0 OBESITY UNSPECIFIED 10/21/2010 LAURIE LYLE MD 278.0 0 OBESITY UNSPECIFIED 10/21/2010 LAURIE LYLE MD 278.0 0 OBESITY UNSPECIFIED 10/21/2010 LAURIE LYLE MD 278.0 0 OBESITY UNSPECIFIED 10/21/2010 LAURIE LYLE MD 278.0 0 OBESITY UNSPECIFIED 10/21/2010 RADHA KAUR DO K 278.00 OBESITY UNSPECIFIED 10/21/2010 LAURIE LYLE MD 278.0 0 OBESITY UNSPECIFIED 10/21/2010 LAURIE LYLE MD 278.0 0 OBESITY UNSPECIFIED 10/21/2010 LAURIE LYLE MD 278.0 0 OBESITY UNSPECIFIED 10/21/2010 KAUR RADHA WINKLER K 278.00 OBESITY UNSPECIFIED 10/21/2010 LAURIE LYLE MD 278.0 0 OBESITY UNSPECIFIED 10/21/2010 LAURIE LYLE MD 278.0 0 OBESITY UNSPECIFIED 10/21/2010 LAURIE LYLE MD 278.0 0 OBESITY UNSPECIFIED 10/21/2010 LAURIE LYLE MD 278.0 0 OBESITY UNSPECIFIED 10/21/2010 KAUR RADHA WINKLER K 278.00 OBESITY UNSPECIFIED 10/21/2010 LAURIE LYLE MD 278.0 0 OBESITY UNSPECIFIED 10/21/2010 LAURIE LYLE MD 278.0 0 OBESITY UNSPECIFIED 11/13/2010 LAURIE LYLE MD 729.2 NEURALGIA [...] MD9.2 NEURALGIA NEURITIS AND RADICULITIS UNSPECIFIED 11/13/2010 VALDO PATRICK, LAURIE 729.2 NEURALGIA NEURITIS AND RADICULITIS UNSPECIFIED 11/13/2010 VALDO PATRICK, LAURIE 729.2 NEURALGIA NEURITIS AND RADICULITIS UNSPECIFIED [...] LYLE MD9.2 NEURALGIA NEURITIS AND RADICULITIS UNSPECIFIED 12/12/2010 LAURIE LYLE MD 380.4 Cerumen Impaction 12/12/2010 LAURIE LYLE MD 780.4 Dizziness And Vertigo 12/12/2010 LAURIE LYLE MD 380.4 Cerumen Impaction 12/12/2010 VALDO PATRICK, LAURIE [...] PATRICK, LAURIE 780.4 Dizziness And Vertigo 12/12/2010 KAUR DO, RADHA K 380.4 Cerumen Impaction 12/12/2010 VINCENT WINKLER RADHA K 780.4 Dizziness And Vertigo 12/12/2010 LAURIE LYLE [...] Dizziness And Vertigo 12/12/2010 RADHA KAUR DO K 380.4 Cerumen Impaction 12/12/2010 RADHA KAUR DO K 780.4 Dizziness And Vertigo 12/12/2010 LAURIE LYLE MD 380.4 Cerumen Impaction 12/12/2010 LAURIE LYLE MD 780.4 Dizziness And Vertigo 12/12/2010 LAURIE LYLE MD 380.4 Cerumen Impaction 12/12/2010 LAURIE LYLE MD 780.4 Dizziness And Vertigo 06/25/2011 LAURIE LYLE MD 719.4 1 Pain In Joint Involving Shoulder Region 06/25/2011 LAURIE LYLE MD 719.4 1 Pain In Joint Involving Shoulder Region 06/25/2011 LAURIE LYLE MD.4 1 Pain In Joint Involving Shoulder Region 06/25/2011 LAURIE LYLE MD9.4 1 Pain In Joint Involving Shoulder Region 06/25/2011 LAURIE LYLE MD.4 1 Pain In Joint Involving Shoulder Region 06/25/2011 LAURIE LYLE MD.4 1 Pain In Joint Involving Shoulder Region 06/25/2011 LAURIE LYLE MD.4 1 Pain In Joint Involving Shoulder Region 06/25/2011 LAURIE LYLE MD.4 1 Pain In Joint Involving Shoulder Region 06/25/2011 LAURIE LYLE MD.4 1 Pain In Joint Involving Shoulder Region 06/25/2011 LAURIE LYLE MD.4 1 Pain In Joint Involving Shoulder Region 06/25/2011 LAURIE LYLE MD 719.4 1 Pain In Joint Involving Shoulder Region 06/25/2011 RADHA KAUR DO 719.41 Pain In Joint Involving Shoulder Region 06/25/2011 LAURIE LYLE MD 719.4 1 Pain In Joint Involving Shoulder Region 06/25/2011 LAURIE LYLE MD 719.4 1 Pain In Joint Involving Shoulder Region 06/25/2011 LAURIE LYLE MD 719.4 1 Pain In Joint Involving Shoulder Region 06/25/2011 RADHA KAUR DO 719.41 Pain In Joint Involving Shoulder Region 06/25/2011 LAURIE LYLE MD 71Felix.4 1 Pain In Joint Involving Shoulder Region 06/25/2011 LAURIE LYLE MD 71Felix.4 1 Pain In Joint Involving Shoulder Region 06/25/2011 LAURIE LYLE MD 719.4 1 Pain In Joint Involving Shoulder Region 06/25/2011 LAURIE LYLE MD 719.4 1 Pain In Joint Involving Shoulder Region 06/25/2011 RADHA KAUR DO 719.41 Pain In Joint Involving Shoulder Region 06/25/2011 LAURIE LYLE MD 719.4 1 Pain In Joint Involving Shoulder Region 06/25/2011 LAURIE LYLE MD 71Felix.4 1 Pain In Joint Involving Shoulder Region 08/27/2011 [...] Function Of Stomach 08/27/2011 KAUR DO, RADHA K 536.8 Dyspepsia And Other Specified Disorders [...] Of Function Of Stomach 12/04/2011 LAURIE LYLE MD8.1 Dysuria 12/04/2011 LAURIE LYLE MD.1 Dysuria 12/04/2011 LAURIE LYLE MD8.1 Dysuria 12/04/2011 LAURIE LYLE MD8.1 Dysuria 12/04/2011 LAURIE LYLE MD8.1 Dysuria 12/04/2011 LAURIE LYLE MD8.1 Dysuria 12/04/2011 LAURIE LYLE MD8.1 Dysuria 12/04/2011 VALDO PATRICK, LAURIE 788.1 Dysuria 12/04/2011 VALDO PATRICK, LAURIE 788.1 Dysuria 12/04/2011 VALDO PATRICK, LAURIE 788.1 Dysuria 12/04/2011 VALDO PATRICK, LAURIE 788.1 Dysuria 12/04/2011 KAUR DO, RADHA K 788.1 Dysuria 12/04/2011 VALDO PATRICK, LAURIE 788.1 Dysuria 12/04/2011 VALDO PATRICK, LAURIE 788.1 Dysuria 12/04/2011 VALDO PATRICK, LAURIE 788.1 Dysuria 12/04/2011 KAUR DO, RADHA Walsh 788.1 Dysuria 12/04/2011 LAURIE LYLE MD.1 Dysuria 12/04/2011 LAURIE LYLE MD 788.1 Dysuria 12/04/2011 VALDO PATRICK, LAURIE 788.1 Dysuria 12/04/2011 VALDO PATRICK, LAURIE Riley8.1 Dysuria 12/04/2011 KAUR DO, RADHA Walsh 788.1 Dysuria 12/04/2011 LAURIE LYLE MD 788.1 Dysuria 12/04/2011 LAURIE LYLE MD 788.1 Dysuria 12/24/2011 LAURIE LYLE MD 625.8 Other Specified Symptoms Associated With Female Genital Organs 12/24/2011 LAURIE LYLE MD 627.9 Menopausal And Postmenopausal Disorder Unspecified 12/24/2011 LAURIE LYLE MD V76.1 0 Breast Cancer Screening 12/24/2011 LAURIE LYLE MD V76.4 7 Vaginal Pap Smear Screening 12/24/2011 LAURIE LYLE MD 625.8 Other Specified Symptoms Associated With Female Genital Organs 12/24/2011 LAURIE LYLE MD 627.9 Menopausal And Postmenopausal Disorder Unspecified 12/24/2011 LAURIE LYLE MD V76.1 0 Breast Cancer Screening 12/24/2011 LAURIE LYLE MD V76.4 7 Vaginal Pap Smear Screening 12/24/2011 LAURIE LYLE MD 625.8 Other Specified Symptoms Associated With Female Genital Organs 12/24/2011 LAURIE LYLE MD 627.9 Menopausal And Postmenopausal Disorder Unspecified 12/24/2011 LAURIE LYLE MD V76.1 0 Breast Cancer Screening 12/24/2011 LAURIE LYLE MD V76.4 7 Vaginal Pap Smear Screening 12/24/2011 LAURIE LYLE MD 625.8 Other Specified Symptoms Associated With Female Genital Organs 12/24/2011 LAURIE LYLE MD 627.9 Menopausal And Postmenopausal Disorder Unspecified 12/24/2011 LAURIE LYLE MD V76.1 0 Breast Cancer Screening 12/24/2011 LAURIE LYLE MD V76.4 7 Vaginal Pap Smear Screening 12/24/2011 LAURIE LYLE MD 625.8 Other Specified Symptoms Associated With Female Genital Organs 12/24/2011 LAURIE LYLE MD 627.9 Menopausal And Postmenopausal Disorder Unspecified 12/24/2011 LAURIE LYLE MD V76.1 0 Breast Cancer Screening 12/24/2011 LAURIE LYLE MD V76.4 7 Vaginal Pap Smear Screening 12/24/2011 LAURIE LYLE MD 625.8 Other Specified Symptoms Associated With Female Genital Organs 12/24/2011 LAURIE LYLE MD 627.9 Menopausal And Postmenopausal Disorder Unspecified 12/24/2011 LAURIE LYLE MD V76.1 0 Breast Cancer Screening 12/24/2011 LAURIE LYLE MD V76.4 7 Vaginal Pap Smear Screening 12/24/2011 LAURIE LYLE MD 625.8 Other Specified Symptoms Associated With Female Genital Organs 12/24/2011 LAURIE LYLE MD 627.9 Menopausal And Postmenopausal Disorder Unspecified 12/24/2011 LAURIE LYLE MD V76.1 0 Breast Cancer Screening 12/24/2011 LAURIE LYLE MD V76.4 7 Vaginal Pap Smear Screening 12/24/2011 LAURIE LYEL MD 625.8 Other Specified Symptoms Associated With Female Genital Organs 12/24/2011 LAURIE LYLE MD 627.9 Menopausal And Postmenopausal Disorder Unspecified 12/24/2011 LAURIE LYLE MD V76.1 0 Breast Cancer Screening 12/24/2011 LAURIE LYLE MD V76.4 7 Vaginal Pap Smear Screening 12/24/2011 LAURIE LYLE MD 625.8 Other Specified Symptoms Associated With Female Genital Organs 12/24/2011 LAURIE LYLE MD 627.9 Menopausal And Postmenopausal Disorder Unspecified 12/24/2011 LAURIE LYLE MD V76.1 0 Breast Cancer Screening 12/24/2011 LAURIE LYLE MD V76.4 7 Vaginal Pap Smear Screening 12/24/2011 LAURIE LYLE MD 625.8 Other Specified Symptoms Associated With Female Genital Organs 12/24/2011 LAURIE LYLE MD 627.9 Menopausal And Postmenopausal Disorder Unspecified 12/24/2011 LAURIE LYLE MD V76.1 0 Breast Cancer Screening 12/24/2011 LAURIE LYLE MD V76.4 7 Vaginal Pap Smear Screening 12/24/2011 LAURIE LYLE MD 625.8 Other Specified Symptoms Associated With Female Genital Organs 12/24/2011 LAURIE LYLE MD 627.9 Menopausal And Postmenopausal Disorder Unspecified 12/24/2011 LAURIE LYLE MD V76.1 0 Breast Cancer Screening 12/24/2011 LAURIE LYLE MD V76.4 7 Vaginal Pap Smear Screening 12/24/2011 RADHA KAUR [...] Postmenopausal Disorder Unspecified 12/24/2011 LAURIE LYLE MD V76.1 0 Breast Cancer Screening 12/24/2011 LAURIE LYLE MD V76.4 7 Vaginal Pap Smear Screening 12/24/2011 LAURIE LYLE MD 625.8 Other Specified Symptoms Associated With Female Genital Organs 12/24/2011 LAURIE LYLE MD 627.9 Menopausal And Postmenopausal Disorder Unspecified 12/24/2011 LAURIE LYLE MD V76.1 0 Breast Cancer Screening 12/24/2011 LAURIE LYLE MD V76.4 7 Vaginal Pap Smear Screening 12/24/2011 LAURIE LYLE MD 625.8 Other Specified Symptoms Associated With Female Genital Organs 12/24/2011 LAURIE LYLE MD 627.9 Menopausal And Postmenopausal Disorder Unspecified 12/24/2011 LAURIE LYLE MD V76.1 0 Breast Cancer Screening 12/24/2011 HUERTER MD, LAURIE V76.4 7 Vaginal Pap Smear Screening 12/24/2011 RADHA KAUR [...] Postmenopausal Disorder Unspecified 12/24/2011 LAURIE LYLE MD V76.1 0 Breast Cancer Screening 12/24/2011 LAURIE LYLE MD V76.4 7 Vaginal Pap Smear Screening 12/24/2011 LAUIRE LYLE MD 625.8 Other Specified Symptoms Associated With Female Genital Organs 12/24/2011 LAURIE LYLE MD 627.9 Menopausal And Postmenopausal Disorder Unspecified 12/24/2011 LAURIE LYLE MD V76.1 0 Breast Cancer Screening 12/24/2011 LAURIE LYLE MD V76.4 7 Vaginal Pap Smear Screening 12/24/2011 LAURIE LYLE MD 625.8 Other Specified Symptoms Associated With Female Genital Organs 12/24/2011 LAURIE LYLE MD 62Ari.9 Menopausal And Postmenopausal Disorder Unspecified 12/24/2011 LAURIE LYLE MD V76.1 0 Breast Cancer Screening 12/24/2011 LAURIE LYLE MD V76.4 7 Vaginal Pap Smear Screening 12/24/2011 LAURIE LYLE MD 625.8 Other Specified Symptoms Associated With Female Genital Organs 12/24/2011 LAURIE LYLE MD 627.9 Menopausal And Postmenopausal Disorder Unspecified 12/24/2011 LAURIE LYLE MD V76.1 0 Breast Cancer Screening 12/24/2011 LAURIE LYLE MD V76.4 7 Vaginal Pap Smear Screening 12/24/2011 RADHA KAUR [...] Postmenopausal Disorder Unspecified 12/24/2011 LAURIE LYLE MD V76.1 0 Breast Cancer Screening 12/24/2011 LAURIE LYLE MD V76.4 7 Vaginal Pap Smear Screening 12/24/2011 LAURIE LYLE MD 625.8 Other Specified Symptoms Associated With Female Genital Organs 12/24/2011 LAURIE LYLE MD 627.9 Menopausal And Postmenopausal Disorder Unspecified 12/24/2011 LAURIE LYLE MD V76.1 0 Breast Cancer Screening 12/24/2011 LAURIE LYLE MD V76.4 7 Vaginal Pap Smear Screening 02/04/2012 LAURIE LYLE MD 577.9 Unspecified Disease Of Pancreas 02/04/2012 LAURIE LYLE MD7.9 Unspecified Disease Of Pancreas 02/04/2012 LAURIE LYLE MD7.9 Unspecified Disease Of Pancreas 02/04/2012 LAURIE LYLE MD.9 Unspecified Disease Of Pancreas 02/04/2012 LAURIE LYLE MD7.9 Unspecified Disease Of Pancreas 02/04/2012 LAURIE LYLE MD7.9 Unspecified Disease Of Pancreas 02/04/2012 LAURIE LYLE MD7.9 Unspecified Disease Of Pancreas 02/04/2012 LAURIE LYLE MD7.9 Unspecified Disease Of Pancreas 02/04/2012 LAURIE LYLE MD7.9 Unspecified Disease Of Pancreas 02/04/2012 LAURIE LYLE MD7.9 Unspecified Disease Of Pancreas 02/04/2012 LAURIE LYLE MD7.9 Unspecified Disease Of Pancreas 02/04/2012 RADHA KAUR DO 577.9 Unspecified Disease Of Pancreas 02/04/2012 LAURIE LYLE MD.9 Unspecified Disease Of Pancreas 02/04/2012 LAURIE LYLE MD7.9 Unspecified Disease Of Pancreas 02/04/2012 LAURIE LYLE MD7.9 Unspecified Disease Of Pancreas 02/04/2012 RADHA KAUR DO 577.9 Unspecified Disease Of Pancreas 02/04/2012 LAURIE LYLE MD7.9 Unspecified Disease Of Pancreas 02/04/2012 VALDO PATRICK, [...] 593.9 Renal Insufficiency 03/11/2012 RADHA KAUR DO K 575.9 Gallbladder Disease Unspec 03/11/2012 KAUR RADHA WINKLER K 593.9 Renal Insufficiency 03/11/2012 VALDO PATRICK, LAURIE 575.9 Gallbladder Disease Unspec 03/11/2012 VALDO PATRICK, LAURIE 593.9 Renal Insufficiency 03/11/2012 LAURIE LYLE MD 575.9 Gallbladder Disease Unspec 03/11/2012 LAURIE LYLE MD 593.9 Renal Insufficiency 03/11/2012 LAURIE LYLE MD 575.9 Gallbladder Disease Unspec 03/11/2012 LAURIE LYLE MD 593.9 Renal Insufficiency 03/11/2012 KAUR RADHA WINKLER K 575.9 Gallbladder Disease Unspec 03/11/2012 RADHA KAUR DO K 593.9 Renal Insufficiency 03/11/2012 LAURIE LYLE MD 575.9 Gallbladder Disease Unspec 03/11/2012 LAURIE LYLE MD 593.9 Renal Insufficiency 03/11/2012 LAURIE LYLE MD 575.9 Gallbladder Disease Unspec 03/11/2012 LAURIE LYLE MD 593.9 Renal Insufficiency 03/11/2012 LAURIE LYLE MD 575.9 Gallbladder Disease Unspec 03/11/2012 LAURIE LYLE MD 593.9 Renal Insufficiency 03/11/2012 LAURIE LYLE MD5.9 Gallbladder Disease Unspec 03/11/2012 LAURIE LYLE MD 593.9 Renal Insufficiency 03/11/2012 RADHA KAUR DO K 575.9 Gallbladder Disease Unspec 03/11/2012 RADHA KAUR DO K 593.9 Renal Insufficiency 03/11/2012 LAURIE LYLE MD 575.9 Gallbladder Disease Unspec 03/11/2012 LAURIE LYLE MD 593.9 Renal Insufficiency 03/11/2012 LAURIE LYLE MD.9 Gallbladder Disease Unspec 03/11/2012 LAURIE LYLE MD 593.9 Renal Insufficiency 04/28/2012 LAURIE LYLE MD 782.3 EDEMA 04/28/2012 VALDO PATRICK, LAURIE 782.3 EDEMA 04/28/2012 VALDO PATRICK, LAURIE 782.3 EDEMA 04/28/2012 VALDO PATRICK, LAURIE 782.3 EDEMA 04/28/2012 LAURIE LYLE MD2.3 EDEMA 04/28/2012 VALDO [...] EDEMA 04/28/2012 VALDO PATRICK, LAURIE 782.3 EDEMA 05/04/2013 LAURIE LYLE MD 716.9 0 UNSPECIFIED ARTHROPATHY SITE UNSPECIFIED 05/04/2013 LAURIE LYLE MD 716.9 0 UNSPECIFIED ARTHROPATHY SITE UNSPECIFIED 05/04/2013 LAURIE LYLE MD 716.9 0 UNSPECIFIED ARTHROPATHY SITE UNSPECIFIED 05/04/2013 LAURIE LYLE MD 716.9 0 UNSPECIFIED ARTHROPATHY SITE UNSPECIFIED 05/04/2013 LAURIE LYLE MD 716.9 0 UNSPECIFIED ARTHROPATHY SITE UNSPECIFIED 05/04/2013 LAURIE LYLE MD 716.9 0 UNSPECIFIED ARTHROPATHY SITE UNSPECIFIED 05/04/2013 LAURIE LYLE MD 716.9 0 UNSPECIFIED ARTHROPATHY SITE UNSPECIFIED 05/04/2013 LAURIE LYLE MD 716.9 0 UNSPECIFIED ARTHROPATHY SITE UNSPECIFIED 05/04/2013 LAURIE LYLE MD 716.9 0 UNSPECIFIED ARTHROPATHY SITE UNSPECIFIED 05/04/2013 LAURIE LYLE MD 716.9 0 UNSPECIFIED ARTHROPATHY SITE UNSPECIFIED 05/04/2013 LAURIE LYLE MD 716.9 0 UNSPECIFIED ARTHROPATHY SITE UNSPECIFIED 05/04/2013 RADHA KAUR DO 716.90 UNSPECIFIED ARTHROPATHY SITE UNSPECIFIED 05/04/2013 LAURIE LYLE MD 716.9 0 UNSPECIFIED ARTHROPATHY SITE UNSPECIFIED 05/04/2013 LAURIE LYLE MD 716.9 0 UNSPECIFIED ARTHROPATHY SITE UNSPECIFIED 05/04/2013 LAURIE LYLE MD 716.9 0 UNSPECIFIED ARTHROPATHY SITE UNSPECIFIED 05/04/2013 RADHA KAUR DO 716.90 UNSPECIFIED ARTHROPATHY SITE UNSPECIFIED 05/04/2013 LAURIE LYLE MD 716.9 0 UNSPECIFIED ARTHROPATHY SITE UNSPECIFIED 05/04/2013 LAURIE LYLE MD 716.9 0 UNSPECIFIED ARTHROPATHY SITE UNSPECIFIED 05/04/2013 LAURIE LYLE MD 716.9 0 UNSPECIFIED ARTHROPATHY SITE UNSPECIFIED 05/04/2013 LAURIE LYLE MD 716.9 0 UNSPECIFIED ARTHROPATHY SITE UNSPECIFIED 05/04/2013 RADHA KAUR DO 716.90 UNSPECIFIED ARTHROPATHY SITE UNSPECIFIED 05/04/2013 LAURIE LYLE MD 716.9 0 UNSPECIFIED ARTHROPATHY SITE UNSPECIFIED 05/04/2013 LAURIE LYLE MD 716.9 0 UNSPECIFIED ARTHROPATHY SITE UNSPECIFIED 03/01/2014 RADHA KAUR DO 729.5 PAIN IN LIMB 03/01/2014 LAURIE LYLE MD 729.5 PAIN IN LIMB 03/01/2014 LAURIE LYLE MD9.5 PAIN IN LIMB 03/01/2014 LAURIE LYLE MD9.5 PAIN IN LIMB 03/01/2014 LAURIE LYLE MD9.5 PAIN IN LIMB 03/01/2014 RADHA KAUR DO 729.5 PAIN IN LIMB 03/01/2014 LAURIE LYLE MD9.5 PAIN IN LIMB 03/01/2014 LAURIE LYLE MD9.5 PAIN IN LIMB Procedures Code Description [place] [address] A1C (IN-HOUSE) 05/04/2013 71610 MICR O ALBUMIN-IN HOUSE 05/04/2013 [facility]oped[facility] Kendal, Merrill 06/06/2013 84333 OXIMETRY 07/25/2013 J2930 SOLU MEDROL INJ 10/17/2013 78067 THER APUTIC INJ SQ/IM 10/17/2013 75063 OXIMETRY 10/18/2013 60721 A1C (IN-HOUSE) 10/20/2013 26073 OXIMETRY 10/23/2013 36856 OXIMETRY 11/24/2013 03174 OXIMETRY 11/27/2013 46344 OXIMETRY 12/07/2013 43999 A1C (IN-HOUSE) 01/25/2014 44028 OXIMETRY 01/25/2014 29336 US V ENOUS DOPPLER (DVT EVAL) 03/01/2014 90653 OXIMETRY 03/20/2014 58327 A1C (IN-HOUSE) 05/15/2014 91271 ROUT INE VENIPUNCTURE 11/06/2014 31300 A1C (IN-HOUSE) 11/12/2014 Results There is no data. Encounters ACCT No. Visit Date/Time Discharge Status Pt. Type Provider Facility Loc./Unit Complaint [id number] 11/12/2014 08:46:00 11/12/2014 23:59: 59 [facility] Outpatient LAURIE LYLE MD [id number] 11/12/2014 08:46:00 11/12/2014 23:59: 59 [facility] Outpatient LAURIE LYLE MD [id number] 07/11/2014 07:02:00 07/11/2014 23:59: 59 [facility] Outpatient RADHA KAUR DO [id number] 06/18/2014 15:58:00 06/18/2014 23:59: 59 [facility] Outpatient LAURIE LYLE MD [id number] 05/15/2014 15:49:00 05/15/2014 23:59: 59 [facility] Outpatient LAURIE LYLE MD [id number] 05/15/2014 15:49:00 05/15/2014 23:59: 59 [facility] Outpatient LAURIE LYLE MD [id number] 03/01/2014 14:07:00 03/01/2014 23:59: 59 [facility] Outpatient LAURIE LYLE MD [id number] 03/01/2014 14:07:00 03/01/2014 23:59: 59 [facility] Outpatient RADHA KAUR DO [id number] 02/08/2014 15:16:00 02/08/2014 23:59: 59 [facility] Outpatient LAURIE LYLE MD [id number] 01/25/2014 15:56:00 01/25/2014 23:59: 59 [facility] Outpatient LAURIE LYLE MD [id number] 01/25/2014 15:56:00 01/25/2014 23:59: 59 [facility] Outpatient LAURIE LYLE MD [id number] 12/21/2013 15:54:00 12/21/2013 23:59: 59 [facility] Outpatient VINCENT RADHA WINKLER [id number] 12/07/2013 15:23:00 12/07/2013 23:59: 59 [facility] Outpatient LAURIE LYLE MD [id number] 11/27/2013 15:23:00 11/27/2013 23:59: 59 [facility] Outpatient LAURIE LYLE MD [id number] 11/27/2013 15:23:00 11/27/2013 23:59: 59 [facility] Outpatient LAURIE LYLE MD [id number] 11/24/2013 10:24:00 11/24/2013 23:59: 59 [facility] Outpatient LAURIE LYLE MD [id number] 10/30/2013 13:21:00 10/30/2013 23:59: 59 [facility] Outpatient LAURIE LYLE MD [id number] 10/20/2013 15:08:00 10/20/2013 23:59: 59 [facility] Outpatient LAURIE LYLE MD [id number] 10/20/2013 15:08:00 10/20/2013 23:59: 59 [facility] Outpatient LAURIE LYLE MD [id number] 07/25/2013 09:10:00 07/25/2013 23:59: 59 [facility] Outpatient LAURIE LYLE MD [id number] 06/05/2013 10:34:00 06/05/2013 23:59: 59 [facility] Outpatient LAURIE LYLE MD [id number] 05/04/2013 16:15:00 05/04/2013 23:59: 59 [facility] Outpatient LAURIE LYLE MD [id number] 05/04/2013 16:15:00 05/04/2013 23:59: 59 [facility] Outpatient LAURIE LYLE MD
== END 2019-11-28 20:59 | disposition home or self-care (01) ==
LOC: EDUNIT# 18:17 → ER 18:18
DX: S70.02XA Contusion of left hip, initial encounter (principal); S70.12XA Contusion of left thigh, initial encounter; M79.622 Pain in left upper arm; M19.90 Unspecified osteoarthritis, unspecified site; J44.9 Chronic obstructive pulmonary disease, unspecified; E11.9 Type 2 diabetes mellitus without complications; I10 Essential (primary) hypertension; E78.00 Pure hypercholesterolemia, unspecified; I25.10 Atherosclerotic heart disease of native coronary artery without angina pectoris; K21.9 Gastro-esophageal reflux disease without esophagitis; F41.9 Anxiety disorder, unspecified; F32.9 Major depressive disorder, single episode, unspecified; Z88.2 Allergy status to sulfonamides; Z88.8 Allergy status to other drugs, medicaments and biological substances; Z79.82 Long term (current) use of aspirin; Z79.51 Long term (current) use of inhaled steroids; Z79.4 Long term (current) use of insulin; Z87.891 Personal history of nicotine dependence; Z82.49 Family history of ischemic heart disease and other diseases of the circulatory system; W06.XXXA Fall from bed, initial encounter
CPT/HCPCS: 36415; 51702; 71045; 73060; 73552; 73700; 80053; 80306; 80320; 80329; 81000; 82150; 82728; 82962; 83605; 83615; 83690; 83735; 83880; 84145; 84484; 85025; 85379; 85610; 85652; 85730; 86141; 86308; 87040; 87430; 87635; 87804; 93041; 96374; 96376

== ENCOUNTER 2019-11-28 18:31 | Emergency (ER) | payer MEDICARE ==
[2019-11-28] MEDS ORDERED: TRAM-42 PO (20:46)
[2019-11-28] MEDS ORDERED: AZIT500T PO (20:46)
== END 2019-11-28 19:12 | disposition home or self-care (01) ==
LOC: EDUNIT# 18:31 → ER 18:33
DX: S70.02XA Contusion of left hip, initial encounter (principal); S70.12XA Contusion of left thigh, initial encounter; M79.622 Pain in left upper arm; M19.90 Unspecified osteoarthritis, unspecified site; J44.9 Chronic obstructive pulmonary disease, unspecified; E11.9 Type 2 diabetes mellitus without complications; I10 Essential (primary) hypertension; E78.00 Pure hypercholesterolemia, unspecified; I25.10 Atherosclerotic heart disease of native coronary artery without angina pectoris; K21.9 Gastro-esophageal reflux disease without esophagitis; F41.9 Anxiety disorder, unspecified; F32.9 Major depressive disorder, single episode, unspecified; Z88.2 Allergy status to sulfonamides; Z88.8 Allergy status to other drugs, medicaments and biological substances; Z79.82 Long term (current) use of aspirin; Z79.51 Long term (current) use of inhaled steroids; Z79.4 Long term (current) use of insulin; Z87.891 Personal history of nicotine dependence; Z82.49 Family history of ischemic heart disease and other diseases of the circulatory system; W06.XXXA Fall from bed, initial encounter

== ENCOUNTER 2020-03-12 08:23 | Observation (INO) | payer MEDICARE ==
[~2020-03-12] VITALS: Ht 157 cm; Wt 94.0 kg
[~2020-03-12 08:23] MED LIST changes: +AZIT500T PO; +TRAM-42 PO
[2020-03-12] MEDS ORDERED: CITA20TA9 PO (08:44)
[2020-03-12] MEDS ORDERED: AMIT25TA9 PO (08:44)
[2020-03-12] MEDS ORDERED: inSUlin (REGULAR) HUMAN 1 UNIT/0.01 ML (CHARGE PER UNIT) IV STA (08:47)
[2020-03-12] MEDS ORDERED: fentaNYL INJECTION 100 MCG/2 ML AMP IVP STA ×2 (08:47→10:35)
[2020-03-12] MEDS ORDERED: KETOROLAC 30 MG/ML VIAL IVP STA (08:47)
[2020-03-12] MEDS ORDERED: LACTATED RINGERS 1,000 ML IV STA (08:47)
--- OUTSIDE RECORDS SUMMARY | 2020-03-12 08:59 | XMS REPORT | Continuity of Care Document ---
Author Author [facility] [facility] [facility] Address Unknown Phone Unavailable Care Team Providers Care Arson Investigator Name Role Phone [facility] Unavailable Unavailable Problems Problem Status Onset Date Classification Date Reported Comments Source GASTRO-ESOPHAGEAL REFLUX DISEASE WITHOUT Active 02/21/2016 [facility] Medications No Data Provided for This Section Allergies, Adverse Reactions, Alerts No Known Medication Allergies Immunizations No Data Provided for This Section Results Order Name Results Value Reference Range Date Interpretation Comments Source HP Urease H pylori Positive Negative 02/22/2016 @ Recent ingestion of antibiotics, bismuth , proton pump inhibitors, or sucralfate can inhibit H. pylori causing false negative results.
[facility] No data available for this section No data available for this section [facility] No data available for this section No data available for this section [address] [place] [address] Pathology Reports No Data Provided for This [...] Provider ADM Date DC Date Status Source [facility] Outpatient [id number] HAYDEE MOSES MD 10/06/2016 10/07/2016 [facility] 006 006 # [id number] DX INT HAYDEE MOSES MD 03/03/2016 Active [facility] Non-Patient [id number] HAYDEE MOSES MD 02/21/2016 02/22/[address] [place] [address] 006 006 N [id number] LAB HAYDEE MOSES MD 02/21/2016 02/21/2016 Active [facility] Procedures No Data Provided for This Section [...]
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
[2020-03-12] MEDS ORDERED: ONDANSETRON 4 MG/2 ML (SDV) Z0FRAN IVP ONE (09:00)
--- OUTSIDE RECORDS SUMMARY | 2020-03-12 09:00 | XMS REPORT | Encounter Summary ---
Author Author [facility] Organization [facility] Address Unknown Phone Unavailable Care Team Providers Care Mohs Surgeon Name Role Phone Ebony Sharp MD PCP Reason for Visit * Reason Comments Other Encounter Details Care Team Description Date Type Department Ebony Sharp MD [address] [facility] [address] [place], [place] [id number] Other 12/22/2019 Refill [facility] [address] [facility] [address] [place], [place] [phone] Social History Date Tobacco Use Types Packs/Day [...] encounter Miscellaneous Notes * Telephone Encounter - Santo Hernandez RN - 12/22/2019 5:26 PM CDT tony 10/03/2019 documented in this encounter Plan of Treatment Not on filedocumented as of this encounter Visit Diagnoses Not on filedocumented in this encounter
--- OUTSIDE RECORDS SUMMARY | 2020-03-12 09:00 | XMS REPORT | Encounter Summary ---
Author Author [facility] Organization [facility] Address Unknown Phone Unavailable Care Team Providers Care Rv Repair Technician Name Role Phone Ebony Sharp MD PCP Reason for Visit * Reason Comments Other Encounter Details Care Team Description Date Type Department Ebony Sharp MD [address] [facility] [address] [place], [place] [phone] Other 11/24/2019 Refill [facility] Primar y Care - [place] [address] [facility] [address] [place], [place] [id number] Social History Date Tobacco Use Types Packs/Day [...] as of this encounter Plan of Treatment Not on filedocumented as of this encounter Visit Diagnoses Not on filedocumented in this encounter
--- OUTSIDE RECORDS SUMMARY | 2020-03-12 09:00 | XMS REPORT | Encounter Summary ---
Author Author [facility] Organization [facility] Address Unknown Phone Unavailable Care Team Providers Care Cane Loader Name Role Phone Ebony Sharp MD PCP Encounter Details Care Team Description [place] [address] [place] [address] [phone] 02/28/2020 Telephone [facility] [address] [place], [place] [id number] Social History Date Tobacco Use Types Packs/Day [...] encounter Miscellaneous Notes * Telephone Encounter - Hannah Lima CMA - 02/28/2020 8:12 AM CDT L/m on pt's v/m (okay PHI) asking if pt had Renal US done? Asked patient to re turn my call. documented in this encounter Plan of Treatment Not on filedocumented as of this encounter Visit Diagnoses Not on filedocumented in this encounter
--- OUTSIDE RECORDS SUMMARY | 2020-03-12 09:00 | XMS REPORT | Encounter Summary ---
Author Author [facility] Organization [facility] Address Unknown Phone Unavailable Care Team Providers Care Bottle Blowing Machine Tender Name Role Phone Ebony Sharp MD PCP Reason for Visit * HH Auth Cert Referred By Contact Referred To Contact Status Reason Specialty Diagnoses / Procedures Encounter Details Care Team Description Date Type Department Vanessa Burch, PT PT HOME VISIT 10/19/2019 Home Care Visit [facility] Home Care and page [facility] [address] [facility] [address] [place] [address] Social History Date Tobacco Use [...] Comments Vital Sign 116/68 10/19/2019 12:03 PM [employer] Blood Pressure 76 10/19/2019 12:03 PM [employer] Pulse 36.6 C (97.8 F) 10/19/2019 12:03 PM [employer] Temperature 16 10/19/2019 12:03 PM [employer] Respiratory Rate 92% 10/19/2019 12:03 PM [employer] Oxygen Saturation - - Inhaled Oxygen Concentration [...] Preference short of breath, go to s faith, visit family, Goal: cook own meals and bathe Shared: and dress without Patient/Ca assistance. regiver will progress towards goals and achieve them documented in this encounter
--- OUTSIDE RECORDS SUMMARY | 2020-03-12 09:00 | XMS REPORT | Encounter Summary ---
Author Author [facility] Organization [facility] Address Unknown Phone Unavailable Care Team Providers Care Supervisor Fitting Name Role Phone Ebony Sharp MD PCP Reason for Visit * HH Auth Cert Referred By Contact Referred To Contact Status Reason Specialty Diagnoses / Procedures Encounter Details Care Team Description Date Type Department Aury Louis RN SN OASIS DISCHARGE 10/26/2019 Home Care Visit [facility] Home Care and [facility] [address] [facility] [address] [place] [address] Social History Date Tobacco Use [...] Comments Vital Sign 165/100 10/26/2019 2:27 PM EDUCATIONAL PROGRAM DIRECTOR Blood Pressure 78 10/26/2019 2:27 PM EDUCATIONAL PROGRAM DIRECTOR Pulse 35.9 C (96.6 F) 10/26/2019 2:27 PM EDUCATIONAL PROGRAM DIRECTOR Temperature 14 10/26/2019 2:27 PM EDUCATIONAL PROGRAM DIRECTOR Respiratory Rate 95% 10/26/2019 2:27 PM EDUCATIONAL PROGRAM DIRECTOR Oxygen Saturation - - Inhaled Oxygen Concentration - - Weight - - Height - - Body Mass Index documented in this encounter Progress Notes * Aury Louis RN - 10/26/2019 12:00 PM EDUCATIONAL PROGRAM DIRECTOR Patient discharged from [facility] today in good condition. She will be moving to [place] in a few days to live with her sister who has macular de generation. ATIONAL PROGRAM DIRECTOR documented in this encounter Plan of Treatment Not on filedocumented as of this encounter Visit Diagnoses Not on filedocumented in this encounter Home Health Visit - Care Plan Visit Type - SN OASIS Discharge Discipline - Care Home Status Goals Interventions Problem Descriptio Start Date n Resolved on 10/26/2019 1 goal linked to scheduled/documented intervention 1 goal intervention scheduled/documented in this visit SN DM: Coping Alteration 09/09/2019 from Lifestyle Changes Disciplines: Care Home Resolved on 10/26/2019 1 goal linked to scheduled/documented intervention 1 goal intervention scheduled/documented in this visit SN DM: Knowledge Deficit 09/09/2019 Related to Diabetes Disciplines: Care Home Resolved on 10/26/2019 1 goal linked to scheduled/documented intervention 1 goal intervention scheduled/documented in this visit SN : Knowledge Deficit 09/09/2019 Related to UTI Disciplines: Care Home Resolved on 10/26/2019 1 goal linked to scheduled/documented intervention 1 goal intervention scheduled/documented in this visit Shared: Advance 09/09/2019 Directives Disciplines: Care Home, SHARED Resolved on 10/26/2019 1 goal linked to scheduled/documented intervention 1 goal intervention scheduled/documented in this visit Shared: Diabetes: 09/09/2019 Knowledge Deficit Related to Diabetic Foot Care Disciplines: Care Home, Physical Therapy, Occupational Therapy, SHARED Resolved on 10/26/2019 1 goal linked to scheduled/documented intervention 1 goal intervention scheduled/documented in this visit Shared: Medication Management 09/09/2019 Management and Disciplines: Education Care Home, Physical of All Therapy, Occupational Home Therapy, SHARED Medication s Including Prescripti on and OTC. Resolved on 10/26/2019 1 goal linked to scheduled/documented intervention 1 goal intervention scheduled/documented in this visit Shared: Pain Management 09/09/2019 Disciplines: Care Home, Physical Therapy, Occupational Therapy, SHARED Resolved on 10/26/2019 1 goal linked to scheduled/documented intervention 1 goal intervention scheduled/documented in this visit Shared: Patient Strength, 09/09/2019 Goals and Care Preferences Disciplines: Care Home, Physical Therapy, Occupational Therapy, SHARED Goal [...] Patient instructed on complications of diabetes mellitus: Fpc Complications of Diabetes (Krames). Patient response to [...] Directive yes Shared: Durable Power of Senior Energy Market Coordinator Advance (DPOA), Health Care Power directives of Senior Energy Market Coordinator (HCPOA) and obtained, Living Will or if [...]
--- OUTSIDE RECORDS SUMMARY | 2020-03-12 09:00 | XMS REPORT | Encounter Summary ---
Author Author [facility] Organization [facility] Address Unknown Phone Unavailable Care Team Providers Care Lead Vulcanizing Operator Name Role Phone Ebony Sharp MD PCP Reason for Visit * Reason Comments Other Encounter Details Care Team Description Date Type Department Ebony Sharp MD [address] [facility] [address] [place], [place] [phone] Other 10/29/2019 Refill [facility] Primar y Care - East [address] [facility] [address] [place], [place] [phone] Social History Date Tobacco Use Types Packs/Day [...]
--- OUTSIDE RECORDS SUMMARY | 2020-03-12 09:00 | XMS REPORT | Encounter Summary ---
Author Author [facility] Organization [facility] Address Unknown Phone Unavailable Care Team Providers Care Airframe And Powerplant Mechanic Name Role Phone Ebony Sharp MD PCP Reason for Visit * HH Auth Cert Referred By Contact Referred To Contact Status Reason Specialty Diagnoses / Procedures Encounter Details Care Team Description Date Type Department Shannon Rangel LPN SN HOME VISIT 10/19/2019 Home Care Visit [facility] Home Care and page [facility] [address] [facility] [address] [place] [phone] Social History Date Tobacco Use Types Packs/Day [...] Comments Vital Sign 120/82 10/19/2019 3:45 PM ASSISTANT TENNIS PROFESSIONAL Blood Pressure 66 10/19/2019 3:45 PM ASSISTANT TENNIS PROFESSIONAL Pulse 36.6 C (97.8 F) 10/19/2019 3:45 PM ASSISTANT TENNIS PROFESSIONAL Temperature 16 10/19/2019 3:45 PM ASSISTANT TENNIS PROFESSIONAL Respiratory Rate 91% 10/19/2019 3:45 PM ASSISTANT TENNIS PROFESSIONAL Oxygen Saturation - - Inhaled Oxygen Concentration - - Weight - - Height - - Body Mass Index documented in this encounter Plan of Treatment Not on filedocumented as of this encounter Visit Diagnoses Not on filedocumented in this encounter Home Health Visit - Care Plan Visit Type - SN Home Visit Discipline - Long-Term Status Goals Interventions Problem Descriptio Start Date n Active 1 goal linked to scheduled/documented intervention 1 goal intervention scheduled/documented in this visit SN Cardiac: Coping 09/09/2019 Alteration from Lifestyle Changes Disciplines: Long-Term Active 1 goal linked to scheduled/documented intervention 1 goal intervention scheduled/documented in this visit SN DM: Knowledge Deficit 09/09/2019 Related to Diabetes Disciplines: Long-Term Active 1 goal linked to scheduled/documented intervention 1 goal intervention scheduled/documented in this visit SN : Knowledge Deficit 09/09/2019 Related to UTI Disciplines: Long-Term Active 1 goal linked to scheduled/documented intervention [...] Patient instructed on complications of diabetes mellitus: Transit Mix Operator Complications of Diabetes (Romulo). Patient response to [...] Goal: Directive yes Shared: Durable Power of Prism Inspector Advance (DPOA), Health Care Power directives of Prism Inspector (HCPOA) and obtained, Living Will or if [...]
--- OUTSIDE RECORDS SUMMARY | 2020-03-12 09:00 | XMS REPORT | Encounter Summary ---
Author Author [facility] Organization [facility] Address Unknown Phone Unavailable Care Team Providers Care Laundry Worker Name Role Phone Ebony Sharp MD [...] unspecified (Primary Dx); Flank pain 10/18/2019 Emergency [facility] [address] [place], [place] [phone] Social History Date Tobacco Use Types Packs/Day [...] Comments Vital Sign 115/83 10/18/2019 2:08 PM FOOD SAFETY AUDITOR Blood Pressure 70 10/18/2019 2:08 PM FOOD SAFETY AUDITOR Pulse 36.8 C (98.3 F) 10/18/2019 2:08 PM FOOD SAFETY AUDITOR Temperature 20 10/18/2019 2:08 PM FOOD SAFETY AUDITOR Respiratory Rate 96% 10/18/2019 2:08 PM FOOD SAFETY AUDITOR Oxygen Saturation - - Inhaled Oxygen Concentration 95.3 kg (210 lb) 10/18/2019 2:08 PM FOOD SAFETY AUDITOR Weight 157.5 cm (5' 2") 10/18/2019 2:08 PM FOOD SAFETY AUDITOR Height 38.41 10/18/2019 2:08 PM FOOD SAFETY AUDITOR Body Mass Index documented in this encounter Discharge Instructions * Instructions* Floresita Gan NP - 10/18/2019 Take the antibiotic as prescribed. Take pain medications as needed. Recommend follow-up with your primary care provider next week for follow-up. Return to the ER for any other worrisome symptoms arise. * Attachments The following attachments cannot be sent through Care Everywhere.* Urinary Tract Infections (UTIs), Understanding (Lebanese) documented in this encounter Medications at Time of Discharge Start Date End Date Medication Sig Dispensed Refills 08/28/2019 08/27/2020 albuterol Inhale 2 1 Inhaler 0 (PROAIR/PROVENTIL/VENTOLI puffs every 6 N) 90 mcg/actuation HFA (six) hours inhaler as needed for wheezing. 06/17/2019 atorvastatin (LIPITOR) 40 Take 1 tablet 90 tablet 1 MG tablet (40 mg total) by mouth daily. 10/13/2019 BREO ELLIPTA 200-25 INHALE 1 PUFF 60 each 2 mcg/dose BY MOUTH INHALERIndications: DAILY Chronic obstructive pulmonary disease, unspecified COPD type (HCC) 09/29/2019 cephalexin (KEFLEX) 500 Take 1 15 capsule 0 MG capsule capsule (500 mg total) by mouth 3 (three) times a day. 09/29/2019 fluconazole (DIFLUCAN) Take 1 tablet 5 [...] A/vit Take by mouth 0 C/biotin/zinc/copper daily. (GOVK-NBWH-NCSK,VIT A,C-BIOTIN, ORAL) 10/18/2019 10/20/2019 HYDROcodone-acetaminophen Take 1-2 8 tablet 0 (NORCO) 5-325 mg per tablets by tablet mouth every 6 (six) hours as needed for pain. Max Daily Dose: 8 tablets 10/18/2019 10/25/2019 nitrofurantoin, Take 1 14 capsule 0 macrocrystal-monohydrate, capsule (100 (MACROBID) 100 MG capsule mg total) by mouth 2 (two) times a day. 06/26/2019 12/24/2019 amitriptyline (ELAVIL) 25 Take 1 tablet 90 tablet 1 MG tablet (25 mg total) by mouth nightly. 07/14/2019 01/01/2020 citalopram (CELEXA) 20 mg Take 1 tablet 90 tablet 1 tablet (20 mg total) by mouth daily. 06/17/2019 10/27/2019 cyclobenzaprine Take 1 tablet 90 [...] Floresita Gan NP - 10/18/2019 7:29 PM FOOD SAFETY AUDITOR 10/18/2019 [facility] History Chief Complaint Patient presents with Flank [...] have occasional diarrhea and some dysuria. Camron neil has history of kidney stones and it feels similar. She tried taking a tra madol no improvement in her pain. She denies any chest pain Past Medical History: Diagnosis Date Acute bleeding 08/08/2016 Allergic rhinitis Anxiety Bronchitis, chronic (HCC) Cataract 2011, 2012 bilat cateract surgery Chronic pain disorder back, ribs, and ankle. COPD (chronic obstructive pulmonary disease) ([facility]) Depression Draining postoperative wound 08/08/2016 Endometriosis Essential [...] Refusal of blood transfusions as patient is Anabaptism Sleep apnea CPAP use Type 2 diabetes [...] STENT PLACEMENT; Surgeon: Darin Huber MD; Location: [facility] Main OR; Service: Urology; Laterality: Left; CYSTOSCOPY, RETROGRADE PYELOGRAM, URETEROSCOPY, LASERLITHOTRIPSY, WITH URETE RAL STENT PLACEMENT Left 08/02/2019 Procedure: CYSTOSCOPY, LEFT RETROGRADE PYELOGRAM, LEFT URETEROSCOPY, LASER LITH OTRIPSY, LEFT URETERAL STENT EXCHANGE; Surgeon: Darin Huber MD; Location: [facility] Main OR; Service: Urology; Laterality: Left; CYSTOSCOPY, RETROGRADE PYELOGRAM, URETEROSCOPY, LASERLITHOTRIPSY, WITH URETE RAL STENT PLACEMENT Left 09/21/2019 Procedure: CYSTOSCOPY, LEFT RETROGRADE PYELOGRAM, LEFT URETEROSCOPY, LEFT HOLMI UM LASER LITHOTRIPSY WITH BASKET EXTRACTION OF STONE, AND LEFT URETERAL STENT PL ACEMENT; Surgeon: Janet Aragon MD; Location: [facility] Main OR; Service: Ur ology; Laterality: Left; CYSTOSCOPY, RETROGRADE PYELOGRAM, W/URETERAL STENT PLACEMENT Left 08/30/2019 Procedure: CYSTOSCOPY, LEFT RETROGRADE PYELOGRAM, AND LEFT URETERAL STENT INSER TION; Surgeon: Janet Aargon MD; Location: [facility] Main OR; Service: Urolo gy; Laterality: Left; HAND SURGERY Left 03/09/2019 [facility] H[facility]IA REPAIR HYSTERECTOMY KIDNEY STONE SURGERY OOPHORECTOMY REMOVAL, HARDWARE, FOOT OR ANKLE Left 04/09/2017 Procedure: LEFT ANKLE REMOVAL OF HARDWARE WITH REVISION LEFT ANKLE ARTHRODESIS; Surgeon: Adelaida Olivas MD; Location: [facility] Main OR; Service: Orthopedics; Later ality: Left; [...] Negative Ketones Urine Negative Negative mg/dL Specific [place], UA 1.021 1.001 - 1.030 Hemoglobin Urine [...] steatosis. 3. Coronary artery atherosclerosis. READING SITE: [facility] ATTESTATION STATEMENT: The Staff Radiologist has personally reviewed the images and dictated, reviewed, or edited the final report. Filed VS 10/18/19 1408 BP: 115/83 Pulse: 70 Resp: 20 Temp: 98.3 F (36.8 C) SpO2: 96% Medications fentaNYL (SUBLIMAZE) injection 50 mcg (50 mcg Intravenous Given 10/18/19 1233) ondansetron (ZOFRAN) injection 4 mg (4 mg [...] ED Disposition Discharge Floresita Gan NP 10/18/192008 SAFETY AUDITOR documented in this encounter Plan of Treatment Not on filedocumented as of this encounter Procedures Comments Procedure Name Priority Date/Time Associated Diag nosis CT ABDOMEN PELVIS WO STAT 10/18/2019 CONTRAST 6:44 PM FOOD SAFETY AUDITOR URINALYSIS MICROSCOPIC STAT 10/18/2019 ONLY 6:15 PM FOOD SAFETY AUDITOR URINALYSIS REFLEX STAT 10/18/2019 6:15 PM FOOD SAFETY AUDITOR CULTURE, URINE STAT 10/18/2019 6:15 PM FOOD SAFETY AUDITOR COMPREHENSIVE METABOLIC STAT 10/18/2019 PANEL 6:07 PM FOOD SAFETY AUDITOR CBC AND DIFF (MANUAL DIFF STAT 10/18/2019 IF NECESSARY) 6:07 PM FOOD SAFETY AUDITOR documented in this encounter Results * CT Abdomen Pelvis wo contrast (10/18/2019 6:44 PM FOOD SAFETY AUDITOR) Specimen Impressions Performed At 1. No acute abdominal or pelvic process. No hydrone phrosis or renal ABIKESSON calculi. 2. Hepatomegaly with diffuse hepatic steatosis. 3. Coronary artery atherosclerosis. READING SITE: [facility] ATTESTATION STATEMENT: The Staff Radiol ogist has personally reviewed the images and dictated, reviewed, or edite d the final report. Narrative Performed At Patient: ISIAH BENÍTEZ Sex#: F #: [id number] Jose #: [id number] Location: [place] [address] Procedure Requested: [id number] CT ABDOM EN PELVIS WO CONTRAST Reason [...] Rad Results In - 10/18/2019 7:12 PM FOOD SAFETY AUDITOR Patient: ISIAH BENÍTEZ Sex#: Paulina #: [id number] Jose#: [id number] Location: [place] [address] Procedure Requested: [id number] CT ABDOMEN PELVIS WO CONTRAST Reason for Exam: left flank pain Exam Ordered: 10/18/2019 1831 Exam Date/Time: 10/18/2019 1844 Begin exam date/time: 10/18/[address] ABDOMEN PELVIS WO CONTRAST INDICATION: Left [...] eatosis. 3. Coronary artery atherosclerosis. READING SITE: [facility] ATTESTATION STATEMENT: The Staff Radiologist has personally reviewed the images and dictated, reviewed, or edited the final report. Performing Organization Address City/[facility] Ph one Number LEVI * Culture, Urine (10/18/2019 6:15 PM FOOD SAFETY AUDITOR) Culture Result Three or more bacterial [place] species isolated from urine Hospital Lab indicates colonization or fecal contamination. Submission of a repeat specimen is suggested. Specimen Clean Voided Urine Performing Organization Address City/[facility] Ph one Number [facility] [address] [address] LABORATORIES [facility] [address] [place] [address] * Urinalysis Microscopic Only (10/18/2019 6:15 PM FOOD SAFETY AUDITOR) Microscopic RBC 0-5 0 - 5 /hpf [facility] Urine [facility] [place] [facility] Microscopic WBC >40 (A) 0 - 5 /hpf [facility] Urine [facility] [place] [facility] Epithelial Large (A) Absent [facility] Cells [facility] [place] [facility] Hyaline Cast Large (A) Absent [facility] [place] [facility] Bacteria Small (A) Absent [facility] [place] [facility] Specimen Clean Voided Urine Performing Organization Address City/State/[facility] Ph one Number [facility] [address] [place] [address] [facility] [address] [facility] [place] [address] [place] [facility] * Urinalysis Reflex (10/18/2019 6:15 PM FOOD SAFETY AUDITOR) Appearance, Yellow [facility] Urine [facility] [place] [facility] Glucose Urine >=1000 (A) Negative mg/dL [facility] [place] [facility] Bilirubin Urine Negative Negative [facility] [place] [facility] Ketones Urine Negative Negative mg/dL [facility] [place] [facility] Specific 1.021 1.001 - 1.030 [facility] [place], UA [facility] [place] [facility] Hemoglobin Negative Negative [facility] Urine [facility] [place] [facility] PH Urine 5.0 5.0 - 8.0 [facility] [place] [facility] Protein Urine Trace (A) Negative mg/dL [facility] Qual [facility] [place] [facility] Urobilinogen Negative Negative EU/dL [facility] Urine [facility] [place] [facility] Nitrite Urine NegativeComment: Culture Negative [facility] Ordered [facility] [place] [facility] Leukocyte Positive (A) Negative [facility] Esterase [facility] [place] [facility] Specimen Clean Voided Urine Performing Organization Address City/State/Zipcode Ph one Number [facility] [address] [facility] [place], [place] [id number] [facility] [address] [facility] [place], [place] [address] [place] [facility] * Comprehensive Metabolic Panel (10/18/2019 6:07 PM FOOD SAFETY AUDITOR) Sodium 137 133 - 147 MEQ/L [facility] [place] [facility] Potassium 3.5 3.5 - 5.3 MEQ/L [facility] [place] [facility] Chloride 99 96 - 112 MEQ/L [facility] [place] [facility] Carbon Dioxide 30 20 - 32 MEQ/L [facility] [place] [facility] Anion Gap 8 5 - [address] [facility] [place] [facility] Calcium 8.7 8.4 - 10.5 mg/dL [facility] [place] [facility] Glucose 343 (H) 70 - 100 mg/dL [facility] [place] [facility] Protein Total 7.7 6.0 - 8.2 g/dL [facility] Serum [facility] [place] [facility] Albumin 4.1 3.5 - 5.0 g/dL [facility] [place] [facility] Alkaline 86 42 - 140 IU/L [facility] Phosphatase [facility] [place] [facility] Alanine 26 0 - 34 IU/L [facility] Aminotransferas [facility] e [place] [facility] Aspartate 35 15 - 46 IU/L [facility] Aminotransferas [facility] e [place] [facility] Bilirubin Total 0.2 0.2 - 1.3 mg/dL [facility] [place] [facility] Blood Urea 9 7 - 26 mg/dL [facility] Nitrogen [facility] [place] [facility] Creatinine 0.7 0.4 - 1.1 mg/dL [facility] [place] [facility] eGFR Female AA 100 60 - 200 [facility] mL/min/1.73sq [facility] [place] [facility] eGFR Female 83 60 - 200 [facility] Non-AA mL/min/1.73sq m Cedric Israeleugenia [place] [facility] Specimen Blood Performing Organization Address City/State/Zipcode Ph one Number [facility] [address] [place] [address] [place] [facility] [address] [place] [address] [place] [facility] * CBC and Diff (manual diff if necessary) (10/18/2019 6:07 PM FOOD SAFETY AUDITOR) [facility] WBC 8.72 4.00 - 11.00 TH/uL [facility] [place] [facility] RBC 3.86 (L) 4.00 - 5.00 MIL/uL kate eugenia [facility] [place] [facility] Hemoglobin 12.6 12.0 - 15.0 g/dL kateeugenia Is[facility]els [place] [facility] Hematocrit 39 36 - 45 % ktaeeugenia [facility] [place] [facility] MCV 100 (H) 80 - 99 fL kateeugenia [facility]els [place] [facility] MCH 33 27 - 34 pg kateeugenia Israels [place] [facility] MCHC 33 32 - 36 % [facility] [place] [facility] RDW 14.3 11.5 - 14.5 % [facility] [place] [facility] Platelet Count 234 140 - 400 TH/uL [facility] [place] [facility] MPV 9.9 9.4 - 12.3 fL kateeugenia Israels [place] [facility] Nucleated RBCs 0 0 - 0 /100 [facility] [place] [facility] % Neutrophils 54 45 - 78 % [facility] [place] [facility] %Lymphocytes 34 15 - 47 % [facility] [place] [facility] %Monocytes 10 0 - 12 % [facility] [place] [facility] %Eosinophils 2 0 - 7 % [facility] [place] [facility] %Basophils 1 0 - 2 % [facility] [place] [facility] % Imm Grans 1 0 - 1 % [facility] [place] [facility] # Granulocytes 4.67 1.7 - 6.8 TH/uL [facility] [place] [facility] # Lymphocytes 2.94 1.0 - 3.3 TH/uL [facility] [place] [facility] # Monocytes 0.86 0.2 - 0.9 TH/uL [facility] [place] [facility] # Eosinophils 0.16 0.0 - 0.4 TH/uL [facility] [place] [facility] # Basophils 0.05 0.0 - 0.1 TH/uL [place] [facility] [facility] Specimen Blood Performing Organization Address City/State/Zipcode Ph one Number [facility] [address] [place] [facility] [place] [address] [facility] [facility] [address] [place] [address] [place] [facility] documented in this encounter Visit Diagnoses Diagnosis Urinary tract infection without hematur ia, site unspecified Flank pain Abdominal pain, unspecified site documented in this encounter Administered Medications Action Date Dose Rate Site Medication Order MAR Action 10/18/2019 7:47 PM FOOD SAFETY AUDITOR 1 g cefTRIAXone (ROCEPHIN) injection 1 g Given 1 g, Intravenous, Once, Indications: UTI, Wed10/18/19 at 1928, For 1 dose, If giving IV push, reconstitute each vial with 10 ml sterile water and give over 3-5 minutes. If sterile water is unavailable, may use Bacteriostatic Water or Normal Saline for reconstitution, 10/18/2019 6:24 PM FOOD SAFETY AUDITOR 50 mcg fentaNYL (SUBLIMAZE) injection 50 mcg Given 50 mcg, Intravenous, Once, Wed10/18/19 at 1813, For 1 dose, Administer over 2 minutes; max dose for IVP is 2 mcg/kg. Note: Limit does not apply to patients who may be tolerant to opioid therapy o r on continuous IV or PO opiate therapy., 10/18/2019 7:59 PM FOOD SAFETY AUDITOR 1 tablet HYDROcodone-acetaminophen (NORCO) 5-325 Given mg per tablet 1 tablet 1 tablet, Oral, Once, Wed10/18/19 at 1953, For 1 dose, Do not exceed 4 GM/DA Y of acetaminophen. If 65 or older do no t exceed 3 GM/DAY. If chronic alcoholic d o not exceed 2 GM/DAY., 10/18/2019 6:24 PM FOOD SAFETY AUDITOR 4 mg ondansetron (ZOFRAN) injection 4 mg Given 4 mg, Intravenous, Once, 10/18/19 at 1813, For 1 dose documented in this encounter
--- OUTSIDE RECORDS SUMMARY | 2020-03-12 09:00 | XMS REPORT | Encounter Summary ---
Author Author [facility] Organization [facility] Address Unknown Phone Unavailable Care Team Providers Care Legal Director Name Role Phone Ebony Sharp MD PCP Reason for Visit * Reason Comments Other Encounter Details Care Team Description Date Type Department Ebony Sharp MD [address] [facility] [address] [place], [place] [phone] Other 10/27/2019 Refill [facility] Primar y Care - East [address] [facility] [address] [place], [place] [phone] Social History Date Tobacco Use Types Packs/Day [...]
--- OUTSIDE RECORDS SUMMARY | 2020-03-12 09:00 | XMS REPORT | Encounter Summary ---
Author Author [facility] Organization [facility] Address Unknown Phone Unavailable Care Team Providers Care Smt Technician Name Role Phone Ebony Sharp MD PCP Encounter Details Care Team Description Date Type Department Medardo Tate MD [address] [facility] [address] [place] [address] [phone] 12/29/2019 Documentation [facility] Special[facility] [address] [facility] [facility] [address] [place], [place] [id number] Social History Date Tobacco Use Types Packs/Day [...]
--- OUTSIDE RECORDS SUMMARY | 2020-03-12 09:00 | XMS REPORT | Encounter Summary ---
Author Author [facility] Organization [facility] Address Unknown Phone Unavailable Care Team Providers Care Bricklayer Tender Name Role Phone Ebony Sharp MD PCP Reason for Visit * Reason Comments Other Encounter Details Care Team Description Date Type Department Ebony Sharp MD [address] [facility] [address] [place], [place] [id number] Other 12/31/2019 Refill [facility] Primar y Care - East [address] [facility] [address] [place], [place] [id number] Social History Date Tobacco Use Types Packs/Day [...]
--- OUTSIDE RECORDS SUMMARY | 2020-03-12 09:00 | XMS REPORT | Encounter Summary ---
Author Author [facility] Organization [facility] Address Unknown Phone Unavailable Care Team Providers Care University Tutor Name Role Phone Ebony Sharp MD PCP Reason for Visit * HH Auth Cert Referred By Contact Referred To Contact Status Reason Specialty Diagnoses / Procedures Encounter Details Care Team Description Date Type Department Vanessa Burch, PT PT DISCIPLINE DISCHARGE 10/25/2019 Home Care Visit [facility] Home Care and page [facility] [address] [facility] [address] [place] [address] Social History Date Tobacco Use [...] Comments Vital Sign 116/78 10/25/2019 1:40 PM CORROSION ENGINEER Blood Pressure 76 10/25/2019 1:40 PM CORROSION ENGINEER Pulse 36.7 C (98 F) 10/25/2019 1:40 PM CORROSION ENGINEER Temperature 16 10/25/2019 1:40 PM CORROSION ENGINEER Respiratory Rate 98% 10/25/2019 1:40 PM CORROSION ENGINEER Oxygen Saturation - - Inhaled Oxygen Concentration [...] getting Preference short of breath, go to [facility], visit family, Goal: cook own meals and bathe Shared: and dress without Patient/Ca assistance. regiver will progress towards goals and achieve them documented in this encounter
--- OUTSIDE RECORDS SUMMARY | 2020-03-12 09:00 | XMS REPORT | Encounter Summary ---
Author Author [facility] Organization [facility] Address Unknown Phone Unavailable Care Team Providers Care Customer Experience Analyst Name Role Phone Ebony Sharp MD PCP Reason for Visit * HH Auth Cert Referred By Contact Referred To Contact Status Reason Specialty Diagnoses / Procedures Encounter Details Care Team Description Date Type Department Gaby Wolff, OT OT DISCIPLINE DISCHARGE 10/18/2019 Home Care Visit [facility] Home Care and page [facility] [address] [facility] [address] [place] [address] Social History Date Tobacco Use [...] Comments Vital Sign 130/74 10/18/2019 12:20 PM BOARDMARKER Blood Pressure 73 10/18/2019 12:20 PM BOARDMARKER Pulse 36.4 C (97.6 F) 10/18/2019 12:20 PM BOARDMARKER Temperature 18 10/18/2019 12:20 PM BOARDMARKER Respiratory Rate 92% 10/18/2019 12:20 PM BOARDMARKER Oxygen Saturation - - Inhaled Oxygen Concentration [...] 09/09/2019 Skin Breakdown - Pressure Ulcer Disciplines: Longterm, Physical Therapy, Occupational Therapy, SHARED Active 1 goal linked to scheduled/documented intervention 1 goal intervention scheduled/documented in this visit Shared: Risk of Falls 09/09/2019 Disciplines: Longterm, Physical Therapy, Occupational Therapy, [...] Disease appropriate use of Management resources for residential management of disease and decreased hospitalizations by [...] in oxygen safety guidelines, as located in [facility] admission booklet, to include: maintenance [...] and appropriat e use of resources for intermediate frame tender management of disease and decreased hospitaliz ations [...]
--- OUTSIDE RECORDS SUMMARY | 2020-03-12 09:01 | XMS REPORT | Encounter Summary ---
Author Author [facility] Organization [facility] Address Unknown Phone Unavailable Care Team Providers Care Outboard Motorboat Rigger Name Role Phone Ebony Sharp MD PCP Reason for Visit * Reason Comments Other Encounter Details Care Team Description Date Type Department Ebony Sharp MD [address] [facility] [address] [place], [place] [id number] Other 10/13/2019 Refill [facility] Primar y Care - East [address] [facility] [address] [place], [place] [id number] Social History Date Tobacco Use Types Packs/Day [...] filedocumented as of this encounter Visit Diagnoses Diagnosis Chronic obstructive pulmonary disease, unspecified COPD type (HCC) documented in this encounter
--- OUTSIDE RECORDS SUMMARY | 2020-03-12 09:01 | XMS REPORT | Encounter Summary ---
Author Author [facility] Organization [facility] Address Unknown Phone Unavailable Care Team Providers Care Wigs Salesperson Name Role Phone Ebony Sharp MD PCP Reason for Visit * HH Auth Cert Referred By Contact Referred To Contact Status Reason Specialty Diagnoses / Procedures Encounter Details Care Team Description Date Type Department Gaby Wolff, OT OT INITIAL EVALUATION 10/04/2019 Home Care Visit [facility] Home Care and page [facility] [address] [facility] [address] [place] [address] Social History Date Tobacco Use [...] Comments Vital Sign 118/70 10/04/2019 12:30 PM PATIENT OBSERVER Blood Pressure 72 10/04/2019 12:30 PM PATIENT OBSERVER Pulse 35.9 C (96.7 F) 10/04/2019 12:30 PM PATIENT OBSERVER Temperature 18 10/04/2019 12:30 PM PATIENT OBSERVER Respiratory Rate 92% 10/04/2019 12:30 PM PATIENT OBSERVER with PLB Oxygen Saturation - - Inhaled [...] 09/09/2019 Communication and Provision of Supplies Disciplines: Half-Way, Physical Therapy, Occupational Therapy, SHARED Active 1 goal linked to scheduled/documented intervention 1 goal intervention scheduled/documented in this visit Shared: Prevention of 09/09/2019 Skin Breakdown - Pressure Ulcer Disciplines: Half-Way, Physical Therapy, Occupational Therapy, SHARED Active 1 goal linked to scheduled/documented intervention 1 goal intervention scheduled/documented in this visit Shared: Risk of Falls 09/09/2019 Disciplines: Half-Way, Physical Therapy, Occupational Therapy, [...] Care Shared: communicated to Patient/Pr patient/demetrio and ricardo physician Communicat ion and Provision of Supplies [...] getting Preference short of breath, go to yarsanism, visit family, Goal: cook own meals and [...]
--- OUTSIDE RECORDS SUMMARY | 2020-03-12 09:01 | XMS REPORT | Encounter Summary ---
Author Author [facility] Organization [facility] Address Unknown Phone Unavailable Care Team Providers Care Agriculture Inspector Name Role Phone Ebony Sharp MD PCP Reason for Visit * HH Auth Cert Referred By Contact Referred To Contact Status Reason Specialty Diagnoses / Procedures Encounter Details Care Team Description Date Type Department Shannon Rangel LPN SN MISSED VISIT DOCUMENTATION 10/05/2019 Home Care Visit [facility] Home Care and page [facility] [address] [facility] [address] [place] [phone] Social History Date Tobacco Use Types Packs/Day [...] SN Missed Visit Documenta tion Discipline - Half-Way Status Goals Interventions Problem Descriptio Start Date n Active 1 goal linked to scheduled/documented intervention 1 goal intervention scheduled/documented in this visit SN DM: Knowledge Deficit 09/09/2019 Related to Diabetes Disciplines: Half-Way Active 1 goal linked to scheduled/documented intervention 1 goal intervention scheduled/documented in this visit SN : Knowledge Deficit 09/09/2019 Related to UTI Disciplines: Half-Way Active 1 goal linked to scheduled/documented intervention 1 goal intervention scheduled/documented in this visit Shared: Advance 09/09/2019 Directives Disciplines: Half-Way, SHARED Active 1 goal linked to scheduled/documented [...] Goal: Directive yes Shared: Durable Power of Hand Picker Advance (DPOA), Health Care Power directives of Hand Picker (HCPOA) and obtained, Living Will or if [...] Preference short of breath, go to s gnosticism, visit family, Goal: cook own meals and bathe Shared: and dress without Patient/Ca assistance. regiver will progress towards goals and achieve them documented in this encounter
--- OUTSIDE RECORDS SUMMARY | 2020-03-12 09:01 | XMS REPORT | Encounter Summary ---
Author Author [facility] Organization [facility] Address Unknown Phone Unavailable Care Team Providers Care Procurement Coordinator Name Role Phone Ebony Sharp MD PCP Reason for Visit * HH Auth Cert Referred By Contact Referred To Contact Status Reason Specialty Diagnoses / Procedures Encounter Details Care Team Description Date Type Department Vanessa Burch, PT PT HOME VISIT 10/12/2019 Home Care Visit [facility] Home Care and page [facility] [address] [facility] [address] [place] [address] Social History Date Tobacco Use [...] Comments Vital Sign 124/70 10/12/2019 1:30 PM EQUIPMENT SERVICE LEAD Blood Pressure 78 10/12/2019 1:30 PM EQUIPMENT SERVICE LEAD Pulse 36.7 C (98 F) 10/12/2019 1:30 PM EQUIPMENT SERVICE LEAD Temperature 18 10/12/2019 1:30 PM EQUIPMENT SERVICE LEAD Respiratory Rate 96% 10/12/2019 1:30 PM EQUIPMENT SERVICE LEAD Oxygen Saturation - - Inhaled Oxygen Concentration [...] Preference short of breath, go to s yazidism, visit family, Goal: cook own meals and bathe Shared: and dress without Patient/Ca assistance. regiver will progress towards goals and achieve them documented in this encounter
--- OUTSIDE RECORDS SUMMARY | 2020-03-12 09:01 | XMS REPORT | Encounter Summary ---
Author Author [facility] Organization [facility] Address Unknown Phone Unavailable Care Team Providers Care Warehouse Record Clerk Name Role Phone Ebony Sharp MD PCP Reason for Visit * HH Auth Cert Referred By Contact Referred To Contact Status Reason Specialty Diagnoses / Procedures Encounter Details Care Team Description Date Type Department Shannon Rangel LPN SN HOME VISIT 10/12/2019 Home Care Visit [facility] Home Care and page [facility] [address] [facility] [address] [place] [phone] Social History Date Tobacco Use Types Packs/Day [...] Comments Vital Sign 104/68 10/12/2019 3:24 PM STUDENT FINANCE ADVISOR Blood Pressure 74 10/12/2019 3:24 PM STUDENT FINANCE ADVISOR Pulse 36.6 C (97.8 F) 10/12/2019 3:24 PM STUDENT FINANCE ADVISOR Temperature 16 10/12/2019 3:24 PM STUDENT FINANCE ADVISOR Respiratory Rate 95% 10/12/2019 3:24 PM STUDENT FINANCE ADVISOR Oxygen Saturation - - Inhaled Oxygen Concentration - - Weight - - Height - - Body Mass Index documented in this encounter Plan of Treatment Not on filedocumented as of this encounter Visit Diagnoses Not on filedocumented in this encounter Home Health Visit - Care Plan Visit Type - SN Home Visit Discipline - Usp Status Goals Interventions Problem Descriptio Start Date n Active 2 goals linked to scheduled/documented interventions 2 goal interventions scheduled/documented in this visit SN DM: Knowledge Deficit 09/09/2019 Related to Diabetes Disciplines: Usp Active 1 goal linked to scheduled/documented intervention 1 goal intervention scheduled/documented in this visit SN : Knowledge Deficit 09/09/2019 Related to UTI Disciplines: Usp Active 1 goal linked to scheduled/documented intervention 1 goal intervention scheduled/documented in this visit Shared: Advance 09/09/2019 Directives Disciplines: Usp, SHARED Active 1 goal linked to scheduled/documented intervention 1 goal intervention scheduled/documented in this visit Shared: Diabetes: 09/09/2019 Knowledge Deficit Related to Diabetic Foot Care Disciplines: Usp, Physical Therapy, Occupational Therapy, SHARED Active 1 goal linked to scheduled/documented intervention 1 goal intervention scheduled/documented in this visit Shared: Medication Management 09/09/2019 Management and Disciplines: Education Usp, Physical of All Therapy, Occupational Home Therapy, SHARED Medication s Including Prescripti on and OTC. Active 1 goal linked to scheduled/documented intervention 1 goal intervention scheduled/documented in this visit Shared: Pain Management 09/09/2019 Disciplines: Usp, Physical Therapy, Occupational Therapy, SHARED Active 1 goal linked to scheduled/documented intervention 1 goal intervention scheduled/documented in this visit Shared: Patient Strength, 09/09/2019 Goals and Care Preferences Disciplines: Usp, Physical Therapy, Occupational Therapy, SHARED Goal Met? [...] Patient instructed on complications of diabetes mellitus: Dog Breeder Complications of Diabetes (Romulo). Patient response to [...] Directive yes Shared: Durable Power of Technical Specialist Advance (DPOA), Health Care Power directives of Technical Specialist (HCPOA) and obtained, Living Will or if [...] Preference short of breath, go to s caodaism, visit family, Goal: cook own meals and bathe Shared: and dress without Patient/Ca assistance. regiver will progress towards goals and achieve them documented in this encounter
--- OUTSIDE RECORDS SUMMARY | 2020-03-12 09:01 | XMS REPORT | Encounter Summary ---
Author Author [facility] Organization [facility] Address Unknown Phone Unavailable Care Team Providers Care Waterproofing Mixer Name Role Phone Ebony Sharp MD PCP Reason for Visit * HH Auth Cert Referred By Contact Referred To Contact Status Reason Specialty Diagnoses / Procedures Encounter Details Care Team Description Date Type Department Vanessa Burch, PT PT INITIAL EVALUATION 10/05/2019 Home Care Visit [facility] [address] [facility] [address] [place] [address] Social History Date Tobacco Use [...] Comments Vital Sign 112/66 10/05/2019 1:10 PM POTATO SORTER Blood Pressure 68 10/05/2019 1:10 PM POTATO SORTER Pulse 36.3 C (97.4 F) 10/05/2019 1:10 PM POTATO SORTER Temperature 18 10/05/2019 1:10 PM POTATO SORTER Respiratory Rate 94% 10/05/2019 1:10 PM POTATO SORTER Oxygen Saturation - - Inhaled Oxygen Concentration [...] 09/09/2019 Communication and Provision of Supplies Disciplines: Fpc, Physical Therapy, Occupational Therapy, SHARED [...] Plan of Care Shared: communicated to Patient/Pr patient/cargiver and ovider physician Communicat ion and Provision of Supplies [...] Preference short of breath, go to s sabianism, visit family, Goal: cook own meals and bathe Shared: and dress without Patient/Ca assistance. regiver will progress towards goals and achieve them Plan of Care communicated to Dr. Shapr on 10/05/19. Received return communication on 10/05/19 [...]
--- OUTSIDE RECORDS SUMMARY | 2020-03-12 09:01 | XMS REPORT | Encounter Summary ---
Author Author [facility] Organization [facility] Address Unknown Phone Unavailable Care Team Providers Care Surgical Services Tech Name Role Phone Ebony Sharp MD PCP Encounter Details Care Team Description Date Type Department Letty Ragland RN 10/11/2019 Telephone [facility] Primar y Care - East [address] [facility] [address] [place], [place] [id number] Social History Date Tobacco Use [...] Ebony Sharp MD - 10/15/2019 8:06 PM SCHEDULE SUPERVISOR Please check in with the patient to make sure that she is wearing her O2 and patrick t she is feeling comfortable. She actually looked pretty stable when I saw her before I left for my meeting. DULE SUPERVISOR * Telephone Encounter - Letty Ragland RN - 10/11/2019 3:01 PM SCHEDULE SUPERVISOR Received phone call from Gaby Occupational Therapist with [facility] [phone]. OT wanted to report that patient does [...] and to do nebulizer treatments as prescribed. DULE SUPERVISOR documented in this encounter Plan of Treatment Not on filedocumented as of this encounter Visit Diagnoses Not on filedocumented in this encounter
--- OUTSIDE RECORDS SUMMARY | 2020-03-12 09:01 | XMS REPORT | Encounter Summary ---
Author Author [facility] Organization [facility] Address Unknown Phone Unavailable Care Team Providers Care Makeup Artistry Instructor Name Role Phone Ebony Sharp MD PCP Reason for Visit * HH Auth Cert Referred By Contact Referred To Contact Status Reason Specialty Diagnoses / Procedures Encounter Details Care Team Description Date Type Department Gaby Wolff OT OT HOME VISIT 10/09/2019 Home Care Visit [facility] Home Care and page [facility] [address] [facility] [address] [place] [address] Social History Date Tobacco Use [...] Comments Vital Sign 122/80 10/09/2019 1:40 PM STRAIGHT KNIFE CUTTER MACHINE Blood Pressure 83 10/09/2019 1:40 PM STRAIGHT KNIFE CUTTER MACHINE Pulse 37.2 C (99 F) 10/09/2019 1:40 PM STRAIGHT KNIFE CUTTER MACHINE Temperature 20 10/09/2019 1:33 PM STRAIGHT KNIFE CUTTER MACHINE Respiratory Rate 93% 10/09/2019 1:40 PM STRAIGHT KNIFE CUTTER MACHINE Oxygen Saturation - - Inhaled Oxygen Concentration [...] 09/09/2019 Skin Breakdown - Pressure Ulcer Disciplines: Penitentiary, Physical Therapy, Occupational Therapy, SHARED Active 1 goal linked to scheduled/documented intervention 1 goal intervention scheduled/documented in this visit Shared: Risk of Falls 09/09/2019 Disciplines: Penitentiary, Physical Therapy, Occupational Therapy, [...] Disease appropriate use of Management resources for rodent exterminator management of disease and decreased hospitalizations by [...] in oxygen safety guidelines, as located in patientt home care admission booklet, to include: no [...] and appropriat e use of resources for rodent exterminator management of disease and decreased hospitaliz ations [...] foot care of: Diabetes: Keeping Feet Healthy (Kraeleuterio) and Diabetes: Inspecting Feet (Romulo). Patient response [...]
--- OUTSIDE RECORDS SUMMARY | 2020-03-12 09:01 | XMS REPORT | Encounter Summary ---
Author Author [facility] Organization [facility] Address Unknown Phone Unavailable Care Team Providers Care Director Ehs Name Role Phone Ebony Sharp MD PCP Reason for Visit * HH Auth Cert Referred By Contact Referred To Contact Status Reason Specialty Diagnoses / Procedures Encounter Details Care Team Description Date Type Department Vanessa Burch, PT PT HOME VISIT 10/10/2019 Home Care Visit [facility] Home Care and page [facility] [address] [facility] [address] [place] [address] Social History Date Tobacco Use [...] Comments Vital Sign 124/68 10/10/2019 1:30 PM SYSTEMS DEVELOPMENT MANAGER Blood Pressure 74 10/10/2019 1:30 PM SYSTEMS DEVELOPMENT MANAGER Pulse 36.4 C (97.5 F) 10/10/2019 1:30 PM SYSTEMS DEVELOPMENT MANAGER Temperature 18 10/10/2019 1:30 PM SYSTEMS DEVELOPMENT MANAGER Respiratory Rate 97% 10/10/2019 1:30 PM SYSTEMS DEVELOPMENT MANAGER Oxygen Saturation - - Inhaled Oxygen [...] Care Home, Physical Therapy, Occupational Therapy, SHARED Active [...] Care Home, Physical Therapy, Occupational Therapy, SHARED Active [...] al Patient instructed on Using Oxygen Safely (Romulo) and O2 tubing management. Patient response to [...] (Kraeleuterio). Patient response to teaching: teach back provided, [...] getting Preference short of breath, go to [facility], visit family, Goal: cook own meals and bathe Shared: and dress without Patient/Ca assistance. regiver will progress towards goals and achieve them documented in this encounter
--- OUTSIDE RECORDS SUMMARY | 2020-03-12 09:01 | XMS REPORT | Encounter Summary ---
Author Author [facility] Organization [facility] Address Unknown Phone Unavailable Care Team Providers Care Rejector Name Role Phone Ebony Sharp MD PCP Reason for Visit * HH Auth Cert Referred By Contact Referred To Contact Status Reason Specialty Diagnoses / Procedures Encounter Details Care Team Description Date Type Department Gaby Wolff OT OT HOME VISIT 10/11/2019 Home Care Visit [facility] Home Care and page [facility] [address] [facility] [address] [place] [address] Social History Date Tobacco Use [...] Comments Vital Sign 110/60 10/11/2019 1:40 PM CHEMICAL PROCESSOR Blood Pressure 69 10/11/2019 1:40 PM CHEMICAL PROCESSOR Pulse 36.3 C (97.3 F) 10/11/2019 1:40 PM CHEMICAL PROCESSOR Temperature 18 10/11/2019 1:40 PM CHEMICAL PROCESSOR Respiratory Rate 97% 10/11/2019 1:44 PM CHEMICAL PROCESSOR with PLB Oxygen Saturation - - Inhaled [...] Deficit Related to Diabetic Foot Care Disciplines: Alf, Physical Therapy, Occupational Therapy, SHARED Active 1 goal linked to scheduled/documented intervention 1 goal intervention scheduled/documented in this visit Shared: Medication Management 09/09/2019 Management and Disciplines: Education Alf, Physical of All Therapy, Occupational Home Therapy, SHARED Medication s Including Prescripti on and OTC. Active 1 goal linked to scheduled/documented intervention 1 goal intervention scheduled/documented in this visit Shared: Pain Management 09/09/2019 Disciplines: Alf, Physical Therapy, Occupational Therapy, SHARED Active 1 goal linked to scheduled/documented intervention 1 goal intervention scheduled/documented in this visit Shared: Patient Strength, 09/09/2019 Goals and Care Preferences Disciplines: Alf, Physical Therapy, Occupational Therapy, SHARED Active 1 goal linked to scheduled/documented intervention 1 goal intervention scheduled/documented in this visit Shared: Prevention of 09/09/2019 Skin Breakdown - Pressure Ulcer Disciplines: Alf, Physical Therapy, Occupational Therapy, SHARED Active 1 goal linked to scheduled/documented intervention 1 goal intervention scheduled/documented in this visit Shared: Risk of Falls 09/09/2019 Disciplines: Alf, Physical Therapy, Occupational Therapy, SHARED Goal Met? [...] Disease appropriate use of Management resources for care home management of disease and decreased hospitalizations by [...] in oxygen safety guidelines, as located in [facility] care admission booklet, to include: maintenance [...] and appropriat e use of resources for pipe organ mechanic apprentice management of disease and decreased hospitaliz ations [...] Preference short of breath, go to s gnosticist, visit family, Goal: cook own meals and [...]
--- OUTSIDE RECORDS SUMMARY | 2020-03-12 09:01 | XMS REPORT | Encounter Summary ---
Author Author [facility] Organization [facility] Address Unknown Phone Unavailable Care Team Providers Care Architectural Examiner Name Role Phone Ebony Sharp MD PCP Reason for Visit * Reason Comments Other Encounter Details Care Team Description Date Type Department Art Watts II, DO [address] [place] [address] [phone] Other 10/13/2019 Refill [facility] [address] [place] [address] Social History Date Tobacco Use Types Packs/Day [...]
--- OUTSIDE RECORDS SUMMARY | 2020-03-12 09:01 | XMS REPORT | Encounter Summary ---
Author Author [facility] Organization [facility] Address Unknown Phone Unavailable Care Team Providers Care Scrap Sawyer Name Role Phone Ebony Sharp MD PCP Reason for Visit * HH Auth Cert Referred By Contact Referred To Contact Status Reason Specialty Diagnoses / Procedures Encounter Details Care Team Description Date Type Department Gaby Wolff OT OT HOME VISIT 10/16/2019 Home Care Visit [facility] Home Care and page [facility] [address] [facility] [address] [place] [address] Social History Date Tobacco Use [...] Comments Vital Sign 110/90 10/16/2019 2:04 PM PAPER FOLDING MACHINE OPERATOR Blood Pressure 76 10/16/2019 2:04 PM PAPER FOLDING MACHINE OPERATOR Pulse 36.1 C (97 F) 10/16/2019 2:04 PM PAPER FOLDING MACHINE OPERATOR Temperature 18 10/16/2019 2:04 PM PAPER FOLDING MACHINE OPERATOR Respiratory Rate 95% 10/16/2019 2:04 PM PAPER FOLDING MACHINE OPERATOR Oxygen Saturation - - Inhaled [...] Disease appropriate use of Management resources for detention management of disease and decreased hospitalizations by [...] Lung Disease - Avoiding Irritants and Allergens (Kraeleuterio) and Chronic Lung Disease - Maximizing Your [...] and appropriat e use of resources for long term care social worker management of disease and decreased hospitaliz ations [...] foot care of: Diabetes: Keeping Feet Healthy (Krames) and Diabetes: Inspecting Feet (Krames). Patient response [...] Preference short of breath, [facility], visit family, Goal: cook own meals [...]
--- OUTSIDE RECORDS SUMMARY | 2020-03-12 09:02 | XMS REPORT | Encounter Summary ---
Author Author [facility] Organization [facility] Address Unknown Phone Unavailable Care Team Providers Care Coat Joiner Lockstitch Name Role Phone Ebony Sharp MD PCP Reason for Visit * Reason Comments Flank Pain DOCTOR REMOVED THE STENT FR GUAMAN AND TOLD HER IF SHE HAD MORE INTLERABLE PAIN TO RETURN TO ER. Encounter Details Care Team Description Date Type Department Celso Palma, DO [address] [place] [address] [phone] Flank pain (Primary Dx) 10/01/2019 Emergency [facility] [address] [place] [address] Social History Date Tobacco Use Types Packs/Day [...] Comments Vital Sign 111/59 10/01/2019 5:31 PM SENIOR CAPITAL MARKETS SPECIALIST Blood Pressure 67 10/01/2019 12:17 PM SENIOR CAPITAL MARKETS SPECIALIST Pulse 36.6 C (97.8 F) 10/01/2019 12:17 PM SENIOR CAPITAL MARKETS SPECIALIST Temperature 16 10/01/2019 12:17 PM SENIOR CAPITAL MARKETS SPECIALIST Respiratory Rate 95% 10/01/2019 5:31 PM SENIOR CAPITAL MARKETS SPECIALIST Oxygen Saturation - - Inhaled Oxygen Concentration - - Weight - - Height - - Body Mass Index documented in this encounter Discharge Instructions * Attachments The following attachments cannot be sent through Care Everywhere.* FLANK PAIN, UNCERTAIN CAUSE (PERSIAN) documented in this encounter Medications at Time [...] A/vit Take by mouth 0 C/biotin/zinc/copper daily. ([id number],VIT A,C-BIOTIN, ORAL) 06/26/2019 12/24/2019 amitriptyline (ELAVIL) 25 Take 1 tablet 90 tablet 1 MG tablet (25 mg total) by mouth nightly. 08/25/2019 10/13/2019 BREO ELLIPTA 200-25 INHALE 1 PUFF 60 each 0 mcg/dose BY MOUTH INHALERIndications: DAILY Chronic obstructive pulmonary disease, unspecified COPD type (HCC) 07/14/2019 01/01/2020 citalopram (CELEXA) 20 mg Take [...] Arjun Jurado RN - 10/01/2019 6:07 PM SENIOR CAPITAL MARKETS SPECIALIST Per provider ok for DC OR CAPITAL MARKETS SPECIALIST * Celso Palma, DO - 10/01/2019 2:16 PM SENIOR CAPITAL MARKETS SPECIALIST 10/01/2019 [facility] History Chief Complaint Patient presents [...] rhinitis Anxiety Bronchitis, chronic ([facility]) Cataract 2011, 2012 bilat cateract surgery Chronic pain disorder back, ribs, and ankle. COPD (chronic obstructive pulmonary disease) ([facility]) Depression Draining postoperative wound 08/08/2016 Endometriosis Essential hypertension Fractures [address] in Left ankle MATA (generalized anxiety disorder) 09/24/2015 Hernia of abdominal cavity Kidney stone Mixed hyperlipidemia 09/24/2015 Morbid obesity due to excess calories ([facility]) 07/10/2016 On home oxygen therapy 2L - usually needs if has an exerbation of COPD, or resp illness SASHA on CPAP Osteoarthritis Refusal of blood transfusions as patient is [place] Sleep apnea CPAP use Type 2 diabetes mellitus with hyperglycemia, with long-term current use of i nsulin ([facility]) 06/29/2016 Urinary calculi Urinary incontinence Urinary [...] STENT PLACEMENT; Surgeon: Darin Hendricks MD; Location: [facility]; Service: Urology; Laterality: Left; CYSTOSCOPY, [...] INSER TION; Surgeon: Janet Aragon MD; Location: [facility]; Service: Urolo gy; Laterality: Left; HAND SURGERY Left 03/09/2019 CTR HERNIA REPAIR HYSTERECTOMY KIDNEY STONE SURGERY OOPHORECTOMY REMOVAL, HARDWARE, FOOT OR ANKLE Left 04/09/2017 Procedure: LEFT ANKLE REMOVAL OF HARDWARE WITH REVISION LEFT ANKLE ARTHRODESIS; Surgeon: Adelaida Olivas MD; Location: [facility]; Service: Orthopedics; Later ality: Left; REMOVAL, STENT, URETER, CYSTOSCOPIC Left 09/21/2019 Procedure: CYSTOSCOPY, LEFT URETERAL STENT REMOVAL; Surgeon: Janet valdes MD; Location: [facility]; Service: Urology; Laterality: Left; REPAIR, INCISIONAL HERNIA, LAPAROSCOPIC, USING MESH N/A 05/25/2018 Procedure: LAPAROSCOPIC INCISIONAL HERNIA REPAIR WITH MESH; Surgeon: Medardo Tate MD; Location: [facility]; Service: General; Laterality: N/A; TONSILLECTOMY [...] Negative Ketones Urine Negative Negative mg/dL Specific [place], UA 1.017 1.001 - 1.030 Hemoglobin Urine [...] or edited the final report. READING SITE: [facility] DIAGNOSIS Problem List Items Addressed This Visit None Visit Diagnoses Flank pain - Primary FOLLOW UP Ebony Sharp MD [address] [place] [address] Call in 2 days Follow [place] [address] [facility] [place] [address] Call in 2 days Follow up without [...] ED Disposition Discharge Celso Palma DO 10/01/19 1614 OR CAPITAL MARKETS SPECIALIST documented in this encounter Plan of Treatment Not on filedocumented as of this encounter Procedures Comments Procedure Name Priority Date/Time Associated Diag nosis LACTATE VENOUS WB Timed 10/01/2019 3:48 PM SENIOR CAPITAL MARKETS SPECIALIST CT ABDOMEN PELVIS WO STAT 10/01/2019 CONTRAST 1:56 PM SENIOR CAPITAL MARKETS SPECIALIST LIPASE STAT 10/01/2019 1:36 PM SENIOR CAPITAL MARKETS SPECIALIST LACTATE VENOUS WB STAT 10/01/2019 1:36 PM SENIOR CAPITAL MARKETS SPECIALIST COMPREHENSIVE METABOLIC STAT 10/01/2019 PANEL 1:36 PM SENIOR CAPITAL MARKETS SPECIALIST CBC AND DIFF (MANUAL DIFF STAT 10/01/2019 IF NECESSARY) 1:36 PM SENIOR CAPITAL MARKETS SPECIALIST URINALYSIS MICROSCOPIC STAT 10/01/2019 ONLY 12:24 PM SENIOR CAPITAL MARKETS SPECIALIST URINALYSIS REFLEX STAT 10/01/2019 12:24 PM SENIOR CAPITAL MARKETS SPECIALIST CULTURE, URINE STAT 10/01/2019 12:24 PM SENIOR CAPITAL MARKETS SPECIALIST documented in this encounter Results * Lactate Venous WB (10/01/2019 3:48 PM SENIOR CAPITAL MARKETS SPECIALIST) Only the most recent of 2 results within the time period is included. Lactate Venous 2.3 (H) 0.0 - 2.0 mmol/L [facility] [place] [facility] Specimen Blood Narrative Performed At Reflex sepsis screen >2.0 [facility] Performing Organization Address City/State/Zipcode Ph one Number [facility] [address] [place] [address] [facility] [address] [place] [address] [place] [facility] [address] [place] [address], [place] [phone] [facility] * CT Abdomen Pelvis wo contrast (10/01/2019 1:56 PM SENIOR CAPITAL MARKETS SPECIALIST) Specimen Impressions Performed At 1. Interval removal of the left nephroureteral stent. Mild residual YAIMASON proximal hydroureteronephrosis, with mi ld inflammatory stranding involving the left proximal ureter. No radiopaque stones. 2. Redemonstrated urethral diverticulum , with multiple small stones. ATTESTATION STATEMENT: The Staff Radiologist has personally re viewed the images and dictated, reviewed, or edited the final report. READING SITE: [facility] Narrative Performed At Patient: ISIAH BENÍTEZ Sex#: F #: [id number] Jose #: [id number] Location: [facility] SED-28 Procedure Requested: [id number] CT ABDOM EN PELVIS WO CONTRAST Reason [...] Rad Results In - 10/01/2019 2:52 PM SENIOR CAPITAL MARKETS SPECIALIST Patient: ISIAH BENÍTEZ Sex#: F #: [id number] Jose#: [id number] Location: [facility] SED-28 Procedure Requested: [id number] CT ABDOMEN PELVIS WO CONTRAST Reason for [...] or edited the final report. READING SITE: [facility] Organization Address City/State/Zipcode Ph one Number [place] * Lipase (10/01/2019 1:36 PM SENIOR CAPITAL MARKETS SPECIALIST) Lipase 105 23 - 300 IU/L [facility] [place] [facility] Specimen Blood Performing Organization Address City/State/Zipcode Ph one Number [facility] [address] [facility] [place], [place] [id number] [facility] [address] [facility] [place] [address] [place] [facility] * Comprehensive Metabolic Panel (10/01/2019 1:36 PM SENIOR CAPITAL MARKETS SPECIALIST) Sodium 135 133 - 147 MEQ/L [facility] [place] [facility] Potassium 3.3 (L) 3.5 - 5.3 MEQ/L [facility] [place] [facility] Chloride 98 96 - 112 MEQ/L [facility] [place] [facility] Carbon Dioxide 31 20 - 32 MEQ/L [facility] [place] [facility] Anion Gap 7 5 - 17 [facility] [place] [facility] Calcium 9.2 8.4 - 10.5 mg/dL [facility] [place] [facility] Glucose 203 (H) 70 - 100 mg/dL [facility] [place] [facility] Protein Total 7.6 6.0 - 8.2 g/dL [facility] Serum [facility] [place] [facility] Albumin 4.0 3.5 - 5.0 g/dL [facility] [place] [facility] Alkaline 101 42 - 140 IU/L [facility] Phosphatase [facility] [place] [facility] Alanine 40 (H) 0 - 34 IU/L [facility] Aminotransferas [facility] e [place] [facility] Aspartate 41 15 - 46 IU/L [facility] Aminotransferas [facility] [place] [facility] Bilirubin Total 0.5 0.2 - 1.3 mg/dL [facility] [place] [facility] Blood Urea 16 7 - 26 mg/dL [facility] Nitrogen [facility] [place] [facility] Creatinine 0.8 0.4 - 1.1 mg/dL [facility] [place] [facility] eGFR Female AA 86 60 - 200 [facility]'s mL/min/1.73sq [facility] [place] [facility] eGFR Female 72 60 - 200 [facility] Non-AA mL/min/1.73sq Cedric Israeleugenia [place] [facility] Specimen Blood Performing Organization Address City/State/Zipcode Ph one Number [facility] [address] [place] [address] [facility] [address] [facility] [place] [address] [place] [facility] * CBC and Diff (manual diff if necessary) (10/01/2019 1:36 PM SENIOR CAPITAL MARKETS SPECIALIST) WBC 8.76 4.00 - 11.00 TH/uL [facility] eug[facility] [place] [facility] RBC 4.10 4.00 - 5.00 MIL/uL [facility] Cedric Israels [place] [facility] Hemoglobin 13.1 12.0 - 15.0 g/dL [facility] [place] [facility] Hematocrit 40 36 - 45 % [facility] Cedric [facility] [place] [facility] MCV 97 80 - 99 fL [facility] Cedric [facility] [place] [facility] MCH 32 27 - 34 pg [facility] Cedric [facility] [place] [facility] MCHC 33 32 - 36 % [facility] [place] [facility] RDW 13.6 11.5 - 14.5 % [facility] [place] [facility] Platelet Count 177 140 - 400 TH/uL [facility] [place] [facility] MPV 10.0 9.4 - 12.3 fL [facility] Cedric [facility] [place] [facility] Nucleated RBCs 0 0 - 0 /100 [facility] Cedric [facility] [place] [facility] % Neutrophils 57 45 - 78 % [facility] [place] [facility] %Lymphocytes 33 15 - 47 % [facility] [place] [facility] %Monocytes 8 0 - 12 % [facility] [place] [facility] %Eosinophils 2 0 - 7 % [facility] [place] [facility] %Basophils 1 0 - 2 % [facility] [place] [facility] % Imm Grans 0 0 - 1 % [facility] Cedric [facility] [place] [facility] # Granulocytes 4.95 1.7 - 6.8 TH/uL [facility] [place] [facility] # Lymphocytes 2.90 1.0 - 3.3 TH/uL [facility] [place] [facility] # Monocytes 0.69 0.2 - 0.9 TH/uL [facility] [place] [facility] # Eosinophils 0.14 0.0 - 0.4 TH/uL [facility] [place] [facility] # Basophils 0.05 0.0 - 0.1 TH/uL [facility] [place] [facility] Specimen Blood Performing Organization Address City/[facility] Ph one Number [facility] [address] [facility] [place] [address] [facility] [address] [facility] [place] [address] [place] [facility] * Culture, Urine (10/01/2019 12:24 PM SENIOR CAPITAL MARKETS SPECIALIST) Culture Result Three or more bacterial [facility] species isolated from urine Hospital Lab indicates colonization or fecal contamination. Submission of a repeat specimen is suggested. Isolate 1 Mixed Jasmin [facility] Specimen Clean Voided Urine Performing Organization Address City/[facility] Ph one Number [facility] [address] LABORATORIES [facility] [address] [place] [address] * Urinalysis Microscopic Only (10/01/2019 12:24 PM SENIOR CAPITAL MARKETS SPECIALIST) Microscopic RBC 0-5 0 - 5 /hpf [facility]'s Urine [facility]'s [place] [facility] Microscopic WBC >40 (A) 0 - 5 /hpf [facility] Urine [facility] [place] [facility] Epithelial Large (A) Absent [facility] Cells [facility] [place] [facility] Hyaline Cast Small (A) Absent [place] [place] [facility] Bacteria Absent Absent [facility] [place] [facility] Specimen Clean Voided Urine Performing Organization Address City/[facility] Servicescode Ph one Number [facility] [address] [place], [place] [phone] [facility] [address] [place] [address] [place] [facility] * Urinalysis Reflex (10/01/2019 12:24 PM SENIOR CAPITAL MARKETS SPECIALIST) Appearance, Yellow [facility] Urine [facility] [place] [place] [facility] Glucose Urine 100 (A) Negative mg/dL [facility] [place] [facility] Bilirubin Urine Negative Negative [facility] [place] [facility] Ketones Urine Negative Negative mg/dL [facility] [place] [facility] Specific 1.017 1.001 - 1.030 [facility] [place], UA [place] [facility] [place] [facility] Hemoglobin Negative Negative [facility] Urine [facility] [place] [facility] PH Urine 6.0 5.0 - 8.0 [facility] [place] [facility] Protein Urine Trace (A) Negative mg/dL [facility] Qual [facility] [place] [place] [facility] Urobilinogen Negative Negative EU/dL [facility] Urine [facility] [place] [place] [facility] Nitrite Urine NegativeComment: Culture Negative [facility] Ordered [facility] [place] [place] [facility] Leukocyte Positive (A) Negative [facility] Esterase [place] [place] [facility] Specimen Clean Voided Urine Performing Organization Address City/State/[facility] Ph one Number [facility] [address] [place], [place] [phone] [facility] [address] [place] [address] [facility] documented in this encounter Visit Diagnoses Diagnosis Flank pain Abdominal pain, unspecified site documented in this encounter Administered Medications Action Date Dose Rate Site Medication Order MAR Action 10/01/2019 3:08 PM SENIOR CAPITAL MARKETS SPECIALIST 50 mcg fentaNYL (SUBLIMAZE) injection 50 mcg Given 50 mcg, Intravenous, Once, 10/01/19 a t 1410, For 1 dose 10/01/2019 4:19 PM SENIOR CAPITAL MARKETS SPECIALIST 50 mcg fentaNYL (SUBLIMAZE) injection 50 mcg Given 50 mcg, Intravenous, Once, 10/01/19 a t 1604, For 1 dose, Administer over 2 minutes; max dose for IVP is 2 mcg/kg. Note: Limit does not apply to patients who may be tolerant to opioid therapy o r on continuous IV or PO opiate therapy., 10/01/2019 4:34 PM SENIOR CAPITAL MARKETS SPECIALIST 983.61 mL/hr sodium chloride 0.9% (NS) IV Bolus Restarted 1,000 mL, Intravenous, Administer over 61 Minutes, Once, 10/01/19 at 1603, For 1 dose 1,000 mL 983.61 mL/hr New Bag 10/01/2019 4:19 PM SENIOR CAPITAL MARKETS SPECIALIST documented in this encounter"
--- OUTSIDE RECORDS SUMMARY | 2020-03-12 09:02 | XMS REPORT | Encounter Summary ---
Author Author [facility] Organization [facility] Address Unknown Phone Unavailable Care Team Providers Care Biology Specialist Name Role Phone Ebony Sharp MD PCP Reason for Visit * HH Auth Cert Referred By Contact Referred To Contact Status Reason Specialty Diagnoses / Procedures Encounter Details Care Team Description Date Type Department Sherley Dixon TELEPHONE ENCOUNTER 09/26/2019 Home Care Visit [facility] Home Care and page [facility] [address] [facility] [address] [place] [address] Social History Date Tobacco Use [...] pain reduced to patient stated goal of 10/02 No Shared: Patient/Caregiver Shared: will progress towards Patient goals and achieve them Strength, Goals and Care Preference s Variance Visit Notes Intervention Associated Status Problem/Go al Shared: Advance Problem: Scheduled Directives Shared: Requested/Obtained Advance Description: Directives Patient has Health Care Goal: Directive yes Shared: Durable Power of Sinter Press Operator Advance (DPOA), Health Care Power directives of Sinter Press Operator (HCPOA) and obtained, Living Will or [...]
--- OUTSIDE RECORDS SUMMARY | 2020-03-12 09:02 | XMS REPORT | Encounter Summary ---
Author Author [facility] Organization [facility] Address Unknown Phone Unavailable Care Team Providers Care [place] Supervisor Name Role Phone Ebony Sharp MD PCP Reason for Visit * Diagnostic Imaging (Routine) Referred By Contact Referred To Contact Status Reason Specialty Diagnoses / [place] [address] [place] [address] [facility] [address] [place] [address] Authorized Radiology Diagnoses Nephrolithiasis P rocedures US Renal complete Encounter Details Care Team Description Date Type [place] [address], [place] [address] [phone] Canceled (Rescheduled) [facility] [address] [place] [address] Social History Date Tobacco Use Types Packs/Day [...] A/vit Take by mouth 0 C/biotin/zinc/copper daily. ([id number],VIT A,C-BIOTIN, ORAL) 06/26/2019 12/24/2019 amitriptyline (ELAVIL) 25 Take 1 tablet 90 tablet 1 MG tablet (25 mg total) by mouth nightly. 08/25/2019 10/13/2019 BREO ELLIPTA 200-25 INHALE 1 PUFF 60 each 0 mcg/dose BY MOUTH INHALERIndications: DAILY Chronic obstructive pulmonary disease, unspecified COPD type ([facility]) 07/14/2019 01/01/2020 citalopram (CELEXA) 20 mg Take [...]
--- OUTSIDE RECORDS SUMMARY | 2020-03-12 09:02 | XMS REPORT | Encounter Summary ---
Author Author [facility] Organization [facility] Address Unknown Phone Unavailable Care Team Providers Care Ep Specialist Name Role Phone Ebony Sharp MD PCP Reason for Visit * HH Auth Cert Referred By Contact Referred To Contact Status Reason Specialty Diagnoses / Procedures Encounter Details Care Team Description Date Type Department Aury Louis RN SN MISSED VISIT DOCUMENTATION 10/02/2019 Home Care Visit [facility] Home Care and [facility] [address] [facility] [address] [place] [phone] Social History Date Tobacco Use Types Packs/Day [...] Progress Notes * Aury Louis RN - 10/02/2019 4:[address] Dr[address] Sharp This patient missed a visit with home health on 10/02/19 due to Patient has appoi ntment tomorrow which is needed for HH orders to be signed, which put home healt h out of compliance with stated frequency. GER SMALL BUSINESS documented in this encounter Plan of Treatment Not on filedocumented as of this encounter Visit Diagnoses Not on filedocumented in this encounter Home Health Visit - Care Plan Visit Type - SN Missed Visit Documenta tion Discipline - Assisted Status Goals Interventions Problem Descriptio Start Date n Active 1 goal linked to scheduled/documented intervention 1 goal intervention scheduled/documented in this visit SN DM: Knowledge Deficit 09/09/2019 Related to Diabetes Disciplines: Assisted Active 1 goal linked to scheduled/documented intervention 1 goal intervention scheduled/documented in this visit SN : Knowledge Deficit 09/09/2019 Related to UTI Disciplines: Assisted Active 1 goal linked to scheduled/documented intervention 1 goal intervention scheduled/documented in this visit Shared: Advance 09/09/2019 Directives Disciplines: Assisted, SHARED Active 1 goal linked to scheduled/documented intervention 1 goal intervention scheduled/documented in this visit Shared: Diabetes: 09/09/2019 Knowledge Deficit Related to Diabetic Foot Care Disciplines: Assisted, Physical Therapy, Occupational Therapy, SHARED Active 1 goal linked to scheduled/documented intervention 1 goal intervention scheduled/documented in this visit Shared: Medication Management 09/09/2019 Management and Disciplines: Education Assisted, Physical of All Therapy, Occupational Home Therapy, SHARED Medication s Including Prescripti on and OTC. Active 1 goal linked to scheduled/documented intervention 1 goal intervention scheduled/documented in this visit Shared: Pain Management 09/09/2019 Disciplines: Assisted, Physical Therapy, Occupational Therapy, SHARED Active 1 goal linked to scheduled/documented intervention 1 goal intervention scheduled/documented in this visit Shared: Patient Strength, 09/09/2019 Goals and Care Preferences Disciplines: Assisted, Physical Therapy, Occupational Therapy, SHARED Goal Met? [...] Goal: Directive yes Shared: Durable Power of Screw Remover Advance (DPOA), Health Care Power directives of Screw Remover (HCPOA) and obtained, Living Will or if [...] Preference short of breath, go to s pentecostalism, visit family, Goal: cook own meals and bathe Shared: and dress without Patient/Ca assistance. regiver will progress towards goals and achieve them documented in this encounter
--- OUTSIDE RECORDS SUMMARY | 2020-03-12 09:02 | XMS REPORT | Encounter Summary ---
Author Author [facility] Organization [facility] Address Unknown Phone Unavailable Care Team Providers Care Fish Cleaner Machine Tender Name Role Phone Ebony Sharp MD PCP Reason for Visit * HH Auth Cert Referred By Contact Referred To Contact Status Reason Specialty Diagnoses / Procedures Encounter Details Care Team Description Date Type Department Sherley Dixon CASE CONFERENCE 10/03/[address] [facility] Home Care and page [facility] [address] [facility] [address] [place] [phone] Social History Date Tobacco Use Types Packs/Day [...] this visit Shared: Advance 09/09/2019 Directives Disciplines: Senior Care, SHARED Active 1 goal linked to scheduled/documented intervention 1 goal intervention scheduled/documented in this visit Shared: Diabetes: 09/09/2019 Knowledge Deficit Related to Diabetic Foot Care Disciplines: Senior Care, Physical Therapy, Occupational Therapy, SHARED Active 1 goal linked to scheduled/documented intervention 1 goal intervention scheduled/documented in this visit Shared: Medication Management 09/09/2019 Management and Disciplines: Education Senior Care, Physical of All Therapy, Occupational Home Therapy, SHARED Medication s Including Prescripti on and OTC. Active 1 goal linked to scheduled/documented intervention 1 goal intervention scheduled/documented in this visit Shared: Pain Management 09/09/2019 Disciplines: Senior Care, Physical Therapy, Occupational Therapy, SHARED Active 1 goal linked to scheduled/documented intervention 1 goal intervention scheduled/documented in this visit Shared: Patient Strength, 09/09/2019 Goals and Care Preferences Disciplines: Senior Care, Physical Therapy, Occupational Therapy, SHARED Goal Met? [...] Goal: Directive yes Shared: Durable Power of Landscape Crew Leader Advance (DPOA), Health Care Power directives of Landscape Crew Leader (HCPOA) and obtained, Living Will or if [...]
--- OUTSIDE RECORDS SUMMARY | 2020-03-12 09:02 | XMS REPORT | Encounter Summary ---
Author Author [facility] Organization [facility] Address Unknown Phone Unavailable Care Team Providers Care Mine Surveyor Name Role Phone Ebony Sharp MD PCP Reason for Visit * HH Auth Cert Referred By Contact Referred To Contact Status Reason Specialty Diagnoses / Procedures Encounter Details Care Team Description Date Type Department Aury Louis RN SN OASIS RESUMPTION OF CARE 09/27/2019 Home Care Visit [facility] [address] [facility] [address] [place] [address] Social History Date Tobacco Use [...] Comments Vital Sign 124/85 09/27/2019 11:16 AM LOADING MANAGER Blood Pressure 68 09/27/2019 11:16 AM LOADING MANAGER Pulse 36.1 C (97 F) 09/27/2019 11:16 AM LOADING MANAGER Temperature 14 09/27/2019 11:16 AM LOADING MANAGER Respiratory Rate 94% 09/27/2019 11:16 AM LOADING MANAGER Oxygen Saturation - - Inhaled Oxygen Concentration - - Weight - - Height - - Body Mass Index documented in this encounter Plan of Treatment Not on filedocumented as of this encounter Visit Diagnoses Not on filedocumented in this encounter Home Health Visit - Care Plan Visit Type - SN OASIS Resumption Of Ca re Discipline - Detention Status Goals Interventions Problem Descriptio Start Date n Active 1 goal linked to scheduled/documented intervention 4 goal interventions scheduled/documented in this visit Resumption 09/27/2019 Disciplines: Detention, Metal Gauge Maker, SHARED Active 2 goals linked to scheduled/documented interventions 2 goal interventions scheduled/documented in this visit SN DM: Knowledge Deficit 09/09/2019 Related to Diabetes Disciplines: Detention Active 1 goal linked to scheduled/documented intervention 1 goal intervention scheduled/documented in this visit SN : Knowledge Deficit 09/09/2019 Related to UTI Disciplines: Detention Active 1 goal linked to scheduled/documented intervention 1 goal intervention scheduled/documented in this visit SN : Knowledge Deficit 09/09/2019 Related to Urinary Incontinence Disciplines: Detention Active 1 goal linked to scheduled/documented intervention 1 goal intervention scheduled/documented in this visit Shared: Advance 09/09/2019 Directives Disciplines: Detention, SHARED Active 1 goal linked to scheduled/documented intervention 1 goal intervention scheduled/documented in this visit Shared: Diabetes: 09/09/2019 Knowledge Deficit Related to Diabetic Foot Care Disciplines: Detention, Physical Therapy, Occupational Therapy, SHARED Active 1 goal linked to scheduled/documented intervention 1 goal intervention scheduled/documented in this visit Shared: Medication Management 09/09/2019 Management and Disciplines: Education Detention, Physical of All Therapy, Occupational Home Therapy, SHARED Medication s Including Prescripti on and OTC. Active 1 goal linked to scheduled/documented intervention 1 goal intervention scheduled/documented in this visit Shared: Pain Management 09/09/2019 Disciplines: Detention, Physical Therapy, Occupational Therapy, SHARED Active 1 goal linked to scheduled/documented intervention 1 goal intervention scheduled/documented in this visit Shared: Patient Strength, 09/09/2019 Goals and Care Preferences Disciplines: Detention, Physical Therapy, Occupational Therapy, SHARED Goal Met? Visit Notes Goal Associated Outcome Problem No KHOI: Care Plan Review and Resumption Communication with patient/physician completed for HH Resumption of Care No SN DM: Patient/Caregiver [...] communicated to Dr. Sharp on: 09/27/19 (date). KHIO: POC Communication Problem: Completed w/Physician for Resumption [...] Patient instructed on complications of diabetes mellitus: Preparation Supervisor Complications of Diabetes (Romulo). Patient response to [...] Goal: Directive yes Shared: Durable Power of Slot Floor Supervisor Advance (DPOA), Health Care Power directives of Slot Floor Supervisor (HCPOA) and obtained, Living Will or if [...] getting Preference short of breath, go to [facility], visit family, Goal: cook own meals and bathe Shared: and dress without Patient/Ca assistance. regiver will progress towards goals and achieve them documented in this encounter Home Health Visit - Actions and Narratives Your Diagnosis Codes have been entered. Please review for proper dx and sequencing. Enter Symptom Management Ratings for Di agnosis in M1021 / M1023. Review [place] for completeness. To acknowledge/agree to these changes, [...]
--- OUTSIDE RECORDS SUMMARY | 2020-03-12 09:02 | XMS REPORT | Encounter Summary ---
Author Author [facility] Organization [facility] Address Unknown Phone Unavailable Care Team Providers Care Insurance Claims Processor Name Role Phone Ebony Sharp MD PCP Encounter Details Care Team Description Date [place] [address] [place], [place] [id number] Nephrolithiasis 09/29/2019 Imaging [facility] Radiol ogy Appointment [address] [place] [phone] Social History Date Tobacco Use Types Packs/Day [...] AP Routine 09/29/2019 Neph rolithiasis 12:10 PM AIRPORT REPRESENTATIVE documented in this encounter Results * XR Abdomen single view AP (09/29/2019 12:10 PM AIRPORT REPRESENTATIVE) Specimen Impressions Performed At Left ureteral stent. No renal or bladder calculi. ABI FELIPE Nonobstructive bowel gas pattern. Previ ous cholecystectomy. Narrative Performed At Patient: ISIAH BENÍTEZ Sex#: F #: [id number] Jose #: [id number] Location: BS XR 4 Procedure Requested: [id number] XR ABDOM EN SINGLE VIEW AP Reason for Exam: Nephrolithiasis Exam Ordered: 09/29/2019 120 1 Exam Date/Time: 09/29/2019 1210 Begin exam date/time: 09/29/2019 1203 XR ABDOMEN SINGLE VIEW AP Date: 09/29/2019 12:10 PM History: Nephrolithiasis Procedure Note Interface, Rad Results In - 09/29/2019 12:53 PM AIRPORT REPRESENTATIVE Patient: ISIAH BENÍTEZ Sex#: F #: [id number] Jose#: [id number] Location: XR Procedure Requested: [id number] XR ABDOMEN SINGLE VIEW AP Reason for Exam: Nephrolithiasis Exam Ordered: 09/29/2019 1201 Exam Date/Time: 09/29/2019 1210 Begin exam date/time: 09/29/2019 1203 XR ABDOMEN SINGLE VIEW AP Date: 09/29/2019 12:10 PM History: Nephrolithiasis IMPRESSION Left ureteral stent. No renal or bladder calculi. Nonobstructive bowel gas pattern. Previous cholecystectomy. Performing Organization Address City/State/Zipcode Ph one Number [place] documented in this encounter Visit Diagnoses Diagnosis Nephrolithiasis Calculus of kidney documented in this encounter
--- OUTSIDE RECORDS SUMMARY | 2020-03-12 09:02 | XMS REPORT | Encounter Summary ---
Author Author [facility] Organization [facility] Address Unknown Phone Unavailable Care Team Providers Care Buoy Tender Name Role Phone Ebony Sharp MD PCP Encounter Details Care Team Description Date Type Department Letty Ragland RN 09/27/2019 Telephone [facility] Primar y Care - [place] [address] [place], [place] [phone] Social History Date Tobacco Use Types Packs/Day [...] Lacy Ramirez LPN - 09/28/2019 9:26 AM SPOUTING INSTALLER Spoke with Tanisha and advised pt needs to make an appt. TING INSTALLER * Telephone Encounter - Ebony Sharp MD - 09/27/2019 9:21 PM SPOUTING INSTALLER I just need to see her before I can sign per Medicare rules (and will gladly sig n once I see her). Thanks!! TING INSTALLER * Telephone Encounter - Letty Ragland RN - 09/27/2019 1:19 PM SPOUTING INSTALLER Received phone call from ADAM Garay with [facility]. Tanisha notif ied office that they have resumed care of patient and will do one visit this wee k, 2 visits next week and then once per week until the end of patients cert. Per iod. [facility] will need authorization from PCP for these visits. Patients L OV was 05/2019. Tanisha can be reached at [phone] TING INSTALLER documented in this encounter Plan of Treatment Not on filedocumented as of this encounter Visit Diagnoses Not on filedocumented in this encounter
--- OUTSIDE RECORDS SUMMARY | 2020-03-12 09:02 | XMS REPORT | Encounter Summary ---
Author Author [facility] Organization [facility] Address Unknown Phone Unavailable Care Team Providers Care Communications Executive Name Role Phone Ebony Sharp MD PCP Reason for Visit * Reason Comments Follow-up Hospital & orders Encounter Details Care Team Description Date Type Department Ebony Sharp MD [address] [facility] [address] [place] [address] Type 2 diabetes mellitus with hyperglyce prasanna, 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) (Primary Dx); Mixed hyperlipidemia; Hypertension, unspecified type 10/03/2019 Office Visit [facility] [address] [facility] [address] [place] [address] Social History Date Tobacco Use [...] Comments Vital Sign 100/60 10/03/2019 4:48 PM HOGSHEAD STOCK CLERK Blood Pressure 65 10/03/2019 4:48 PM HOGSHEAD STOCK CLERK Pulse - - Temperature - - Respiratory Rate 93% 10/03/2019 4:48 PM HOGSHEAD STOCK CLERK Oxygen Saturation - - Inhaled Oxygen Concentration 96.4 kg (212 lb 9.6 oz) 10/03/2019 4:48 PM HOGSHEAD STOCK CLERK Weight 157.5 cm (5' 2") 10/03/2019 4:48 PM HOGSHEAD STOCK CLERK Height 38.89 10/03/2019 4:48 PM HOGSHEAD STOCK CLERK Body Mass Index documented in this encounter Progress Notes * Ebony Sharp MD - 10/03/2019 4:10 PM HOGSHEAD STOCK CLERK CC: Follow-up (Hospital & orders) HPI : [...] Medicine) Ebony Sharp MD as PCP - [facility] CECILIO Joaquin MA as Stain Wiper Melva Stephenson RN as Clinical Store Detective (Home Health Services) The patients demographics, including [...] mg 8 tablet 0 vit A/vit C/biotin/zinc/copper ([id number],VIT A,C-BIOTIN, ORAL) Take by mouth daily. HYDROcodone-acetaminophen [...] on phone: None Gets together: None Attends gnosticism service: None Active member of club or [...] Future Hypertension, unspecified type Ebony Sharp MD HEAD STOCK CLERK documented in this encounter Plan of Treatment Order Schedule Name Type Priority Associated Diag [...]
--- OUTSIDE RECORDS SUMMARY | 2020-03-12 09:02 | XMS REPORT | Encounter Summary ---
Author Author [facility] Organization [facility] Address Unknown Phone Unavailable Care Team Providers Care Biomed Tech Name Role Phone Ebony Sharp MD PCP Reason for Referral * Diagnostic Imaging (Routine) Referred By Contact Referred To Contact Status Reason Specialty Diagnoses / [place] [address] [place] [address] [facility] [address] [place] [phone] Authorized Radiology Diagnoses Ureteral calculus, left P rocedures US Renal complete * Testing (Routine) Referred By Contact Referred To Contact Status Reason Specialty Diagnoses / [place] [address], [place] [address] [facility] [address] [place] [phone] Closed Urology Diagnoses Ureteral calculus, left P rocedures Cystoscopy with Stent Pull Reason for Visit * Reason Comments Nephrolithiasis cysto/stent * Testing (Routine) Referred By Contact Referred To Contact Status Reason Specialty Diagnoses / [place] [address] [place] [address] [facility] [address] [place] [address] Closed Urology Diagnoses Ureteral calculus, left P rocedures Cystoscopy with Stent Pull Encounter Details Care Team Description Date [place] [address] [place] [address] [phone] Ureteral calculus, left (Primary Dx); Renal calculus 09/29/2019 Procedure visit [facility] [address] [place] [address] Social History Date Tobacco Use Types Packs/Day [...] Comments Vital Sign 125/82 09/29/2019 12:30 PM HEALTH EDUCATION COORDINATOR Blood Pressure 92 09/29/2019 12:30 PM HEALTH EDUCATION COORDINATOR Pulse - - Temperature - - Respiratory Rate - - Oxygen Saturation - - Inhaled Oxygen Concentration 92.5 kg (204 lb) 09/29/2019 12:30 PM HEALTH EDUCATION COORDINATOR Weight 157.5 cm (5' 2") 09/29/2019 12:30 PM HEALTH EDUCATION COORDINATOR Height 37.31 09/29/2019 12:30 PM HEALTH EDUCATION COORDINATOR Body Mass Index documented in this encounter Progress Notes * Darin Huber MD - 09/29/2019 1:00 PM HEALTH EDUCATION COORDINATOR Urology follow up note Darin Huber Encounter [...] of stone and left ureteral stent placement (6-Malay x 26 cm). Course of symptoms: decreasing. [...] mg by mouth daily. vit A/vit C/biotin/zinc/copper ([id number],VIT A,C-BIOTIN, ORAL) Take by mouth daily. cephalexin [...] She und erwent a CT scan at [facility] that demonstrated proximal a 1.5 cm [...] stent was removed she pre sented to [facility] with increasing flank pain was found to [...] signed by: Darin Huber 09/29/2019 12:47 PM TH EDUCATION COORDINATOR documented in this encounter Plan of Treatment Order Schedule Name Type Priority Associated Diag noses Ordered: 09/29/2019 Cystoscopy with Stent Procedure Routine Ureteral calculus, left Pull Expected: 11/28/2019, Expires: 1 US Renal complete Imaging Routine Ureteral rosalind culus, left documented as of this encounter Procedures Comments Procedure Name Priority Date/Time Associated Diag nosis POCT UA W MICRO ONLY Routine 09/29/2019 Ureteral calculus, left 1:01 PM HEALTH EDUCATION COORDINATOR documented in this encounter Results * POCT UA w Micro Only (Small Stick) (09/29/2019 1:01 PM HEALTH EDUCATION COORDINATOR) Appearance, Comment: Stent Urine Glucose Urine 250 (A) Negative mg/dL Bilirubin Urine Negative Negative Ketones Urine Negative Negative Specific 1.020 1.001 - 1.030 [place], UA Hemoglobin Large (A) Negative Urine PH [...]
--- OUTSIDE RECORDS SUMMARY | 2020-03-12 09:02 | XMS REPORT | Encounter Summary ---
Author Author [facility] Organization [facility] Address Unknown Phone Unavailable Care Team Providers Care Tangible Personal Property Appraiser Name Role Phone Ebony Sharp MD PCP Reason for Visit * HH Auth Cert Referred By Contact Referred To Contact Status Reason Specialty Diagnoses / Procedures Encounter Details Care Team Description Date Type Department Gaby Wolff OT TELEPHONE ENCOUNTER 10/02/2019 Home Care Visit [facility] Home Care and page [facility] [address] [facility] [place] [address] [place] [phone] Social History Date Tobacco Use Types Packs/Day [...] Goal: Directive yes Shared: Durable Power of Manager Hair Advance (DPOA), Health Care Power directives of Manager Hair (HCPOA) and obtained, Living Will or if [...] Preference short of breath, go to s episcopal, visit family, Goal: cook own meals and bathe Shared: and dress without Patient/Ca assistance. regiver will progress towards goals and achieve them documented in this encounter
--- OUTSIDE RECORDS SUMMARY | 2020-03-12 09:02 | XMS REPORT | Encounter Summary ---
Author Author [facility] Organization [facility] Address Unknown Phone Unavailable Care Team Providers Care Obstetrician/Gynecologist Name Role Phone Ebony Sharp MD PCP Reason for Visit * HH Auth Cert Referred By Contact Referred To Contact Status Reason Specialty Diagnoses / Procedures Encounter Details Care Team Description Date Type Department Melva Stephenson RN CASE COMMUNICATION 09/27/2019 Home Care Visit [facility] Home Care and page [facility] [address] [facility] [address] [place] [phone] Social History Date Tobacco Use Types Packs/Day [...] Goal: Directive yes Shared: Durable Power of Solution Make Up Operator Advance (DPOA), Health Care Power directives of Solution Make Up Operator (HCPOA) and obtained, Living Will or [...] Preference short of breath, go to s zoroastrian, visit family, Goal: cook own meals and bathe Shared: and dress without Patient/Ca assistance. regiver will progress towards goals and achieve them documented in this encounter
--- OUTSIDE RECORDS SUMMARY | 2020-03-12 09:03 | XMS REPORT | Encounter Summary ---
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 Care Diesel Tractor Operator Name Role Phone Ebony Sharp MD PCP Reason for Visit * HH Auth Cert Referred By Contact Referred To Contact Status Reason Specialty Diagnoses / Procedures Encounter Details Care Team Description Date Type Department Sherley Dixon TELEPHONE ENCOUNTER 09/26/2019 Home Care Visit [facility] Home Care and page [facility] [address] [facility] [address] [place] [address] Social History Date Tobacco Use [...] Goal: Directive yes Shared: Durable Power of Web Communications Specialist Advance (DPOA), Health Care Power directives of Web Communications Specialist (HCPOA) and obtained, Living Will or [...] Preference short of breath, go to s holiness, visit family, Goal: cook own meals and bathe Shared: and dress without Patient/Ca assistance. regiver will progress towards goals and achieve them documented in this encounter
--- OUTSIDE RECORDS SUMMARY | 2020-03-12 09:03 | XMS REPORT | Encounter Summary ---
Author Author [facility] Organization [facility] Address Unknown Phone Unavailable Care Team Providers Care Nematology Teacher Name Role Phone Ebony Sharp MD PCP Reason for Referral * Home Health Care (Routine) Referred By Contact Referred To Contact Status Reason Specialty Diagnoses / Procedures Art Watts II, DO [address] [place] [address] [facility] [address] [place] [address] Authorization Specialty Services Home Health Diagnoses Not [...] Description Date Type Department Luciano Funes MD [address] Dept of Emergency Services [place], [place] [id number] Jackson Gonzalez MD [address] [place], [place] [id number] Hospitalist, Physician Art Watts II, [address] [place] [address] [phone] Pyelonephritis (Primary Dx); Sepsis, due to unspecified organism, unspecified whether acute organ dysfunction present (HCC); Ureteral calculus, left; Chronic respiratory failure, unspecified whether with hypoxia or hypercapnia (HCC); Chronic obstructive pulmonary disease, unspecified COPD type (HCC); Essential hypertension; Generalized abdominal pain; Morbid obesity due to excess calories ([facility]); SASHA on CPAP; Suspected UTI; Type 2 diabetes mellitus with hyperglycemia, with long-term current use of insulin ([facility]); Confusion; Elevated LFTs 09/17/2019 [facility] 09/23/[address] [place] [address] Social History Date Tobacco Use Types Packs/Day [...] Comments Vital Sign 115/76 09/23/2019 12:09 PM FLOOR SPACE ALLOCATOR Blood Pressure 63 09/23/2019 12:09 PM FLOOR SPACE ALLOCATOR Pulse 36.7 C (98.1 F) 09/23/2019 12:09 PM FLOOR SPACE ALLOCATOR Temperature 17 09/23/2019 12:09 PM FLOOR SPACE ALLOCATOR Respiratory Rate 98% 09/23/2019 12:09 PM FLOOR SPACE ALLOCATOR Oxygen Saturation - - Inhaled Oxygen Concentration 102 kg (224 lb 13.9 oz) 09/23/2019 4:34 AM FLOOR SPACE ALLOCATOR Weight 157.5 cm (5' 2") 09/17/2019 2:17 PM FLOOR SPACE ALLOCATOR Height 41.13 09/17/2019 2:17 PM FLOOR SPACE ALLOCATOR Body Mass Index documented in this encounter Discharge Summaries * Art Watts II, - 09/23/2019 1:06 PM FLOOR SPACE ALLOCATOR [facility] Hospitalist - Discharge Summary Patient Name: Isiah Do Board Account No: [id number] Date of : 1950 Date of Admission: [...] activity as tolerated Scheduled Follow Up Appointments/Studies ([facility] Providers): Future Appointments Date Time Provider Department Center 09/28/2019 3:35 PM INDEP AUA XR 1 INDEP AUA XR 09/28/2019 4:00 PM Darin Huber MD INDEP AUA CL [facility] 10/04/2019 1:45 PM SL US 2 [facility] US [facility] [place] 10/11/2019 1:30 PM Darin Huber MD INDEP [...] 2 CAPSULES BY MOUTH THREE TIMES DAILY [id number](VIT A,C-BIOTIN) ORAL Oral, Daily hydroCHLOROthiazide 25 MG [...] biliary obstruction, if clinically warranted. READING SITE: [facility] ATTESTATION STATEMENT: The staff radiologist has personally reviewed the images and dictated, reviewed, or edited the final report. Ct Head Wo Contrast Result Date: 09/20/2019 Impression: No acute intracranial process. Mild cerebral volume loss. Mild chronic small vessel ischemic disease. The above findings are in general agreement with those in the preliminary report provided by [facility]. READING SITE: [facility]. ATTESTATION STATEMENT: The Staff Radiologist has personally reviewed the images and dictated, reviewed, or edited the final report. Fl Retrograde Urography In Or Result Date: 09/21/2019 Fluoroscopic support for the Urology services. Please see operative report for details. READING SITE: [facility] Abdomen Limited Result Date: 09/20/2019 Impression: 1. Diffuse hepatic steatosis without focal hepatic lesion. 2. Cholecystectomy. ATTESTATION STATEMENT: The Staff Radiologist has personally reviewed this study and agrees with the findings in this report. READING SITE: [facility] Xr Chest 2 Views (pa And Lateral) Result Date: 09/19/2019 1. Bibasilar subsegmental atelectasis. READING SITE: [facility] [place] Xr Chest Single View Frontal Result Date: 09/17/2019 1. No acute cardiopulmonary abnormality. 2. Low lung volumes. Mild atelectasis. READING SITE: [facility] Cardiac Studies during this encounter: [...] summary note. Art Watts II, DO [facility] Medicine Division . R SPACE ALLOCATOR documented in this encounter Medications at Time of Discharge Start Date End Date Medication Sig Dispensed Refills 08/28/2019 08/27/2020 albuterol Inhale 2 1 Inhaler 0 (PROAIR/PROVENTIL/VENTOLI puffs every 6 N) 90 mcg/actuation HFA (six) hours inhaler as needed for wheezing. 06/17/2019 atorvastatin (LIPITOR) 40 Take 1 tablet 90 tablet 1 MG tablet (40 mg total) by mouth daily. 09/08/2019 hydroCHLOROthiazide [...] A/vit Take by mouth 0 C/biotin/zinc/copper daily. 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 Complicates all aspects of care Counseled on lifestyle modifications and risk reduction strategies See my orders for additional details regarding this patients treatment plan. Room: [address] [place] [address] Diet: Diet-Consistent Carbohydrate (75 gm) Code Status: [...] OR prochlor perazine Abdirizak Garcia NP [facility] Medicine Division . R SPACE ALLOCATOR * Arabella Irwin RN ANP - 09/22/2019 8:34 AM FLOOR SPACE ALLOCATOR [facility] Urology Progress Note Subjective: Interval History: Discussed [...] COPD (chronic obstructive pulmonary disease) ([facility]) Type 2 diabetes mellitus with hyperglycemia, with long-term current use of ins ulin ([facility]) Essential hypertension SASHA on CPAP Morbid obesity due to excess calories ([facility]) Generalized abdominal pain Suspected UTI Chronic respiratory failure ([facility]) Confusion Elevated LFTs LOS: 5 days [...] tomorrow due to transportation. Will defer to [facility] Appreciate their assistance. We will sign off on care. Electronically signed by Arabella Irwin 09/22/2019 8:34 AM R SPACE ALLOCATOR Associated attestation - Omar Kidd MD - 09/22/2019 9:57 AM FLOOR SPACE ALLOCATOR I personally saw and examined the patient. I agree with Arabella Irwin NP's f indings, assessment and plan as documented in the note below. Feeling well today. Worried about going home tonight, due to lack of ride. Ok to discharge from standpoint. Script for norco sent to pharmacy. Omar Kidd * Abdirizak Garcia NP - 09/21/2019 10:38 AM FLOOR SPACE ALLOCATOR [facility] Hospitalist - Progress Note Patient Name: Isiah Do [facility] Account No: [id number] Date of : 1950 Date of Admission: [...] current use of insul in ([facility]) Last A1c 11.0 in May 2019 Only on Lantus 20 Units [employer]ER BG trends 200-300s Continue Lantus to 25 [...] COPD (chronic obstructive pulmonary disease) ([facility]) Stable. No s/s of acute exacerbation On O2 as needed [employer] Reports that she was on a Prednisone taper [employer] and had 4 more days of 20mg [...] obesity due to excess calories ([facility]) Body mass index is 40.65 kg/m. Complicates all aspects of care Counseled on lifestyle modifications and risk reduction strategies See my orders for additional details regarding this patients treatment plan. Room: [facility] MAIN OR POOL ROOMS/N* Diet: Diet NPO [...] times daily before meal s and nightly [OCT Hold] metoprolol tartrate 100 mg Oral BID [...] OR [OCT Hold] potassium chloride in water, [OCT Ho ld] prochlorperazine OR [OCT Hold] prochlorperazine OR [OCT Hold] prochl orperazine Abdirizak Garcia NP [facility] Medicine Division . R SPACE ALLOCATOR * Arabella Irwin RN ANP - 09/21/2019 9:02 AM FLOOR SPACE ALLOCATOR [facility] Urology Progress Note Subjective: Interval History: Resting [...] Intake/Output Summary (Last 24 hours) at 09/21/2019 09 Last data filed at 09/21/2019 0333 Gross [...] COPD (chronic obstructive pulmonary disease) ([facility]) Type 2 diabetes mellitus with hyperglycemia, with long-term current use of ins ulin ([facility]) Essential hypertension SASHA on CPAP Morbid obesity due to excess calories ([facility]) Generalized abdominal pain Suspected UTI Chronic respiratory failure ([facility]) Confusion Elevated LFTs LOS: 4 days [...] signed by Arabella Irwin 09/21/2019 9:02 AM R SPACE ALLOCATOR Associated attestation - Janet Aragon MD - 09/21/2019 2:40 PM FLOOR SPACE ALLOCATOR Pt seen, discussed procedure with her, she v/u and wishes to proceed. * Arabella Irwin RN ANP - 09/20/2019 9:01 AM FLOOR SPACE ALLOCATOR [facility] Urology Progress Note Subjective: Interval History: Intermittent [...] Intake/Output Summary (Last 24 hours) at 09/20/2019 09 Last data filed at 09/20/2019 0752 Gross [...] COPD (chronic obstructive pulmonary disease) ([facility]) Type 2 diabetes mellitus with hyperglycemia, with long-term current use of ins ulin (HCC) Essential hypertension SASHA on CPAP Morbid obesity due to excess calories ([facility]) Generalized abdominal pain Suspected UTI Chronic respiratory failure ([facility]) LOS: 3 days 1. Left mid ureteral calculus - s/p cystoscopy and left ureteral stent placement with Dr. Aragon on 08/30/2019 - She is tentatively scheduled for cystoscopy, left RGP, left ureteroscopy with possible laser lithotripsy/stone extraction, and left ureteral stent exchange wi Dr. Aragon 1/30/20 at 1400 - She would benefit from [...] signed by Arabella Irwin 09/20/2019 9:01 AM R SPACE ALLOCATOR * Hope Cox, INFORMATION SECURITY RISK ANALYST - 09/20/2019 8:55 AM FLOOR SPACE ALLOCATOR [facility] Hospitalist - Progress Note Patient Name: Isiah Do Board Account No: [id number] Date of : 1950 Date of Admission: [...] performing provider), ECG, telemetry, current inpatient medications, executive talent acquisition consultant notes and business support liaison notes with pertainent findings noted within the [...] current use of insul in ([facility]) Last A1c 11.0 in May 2019 Only on Lantus 20 Units [employer] BG trends 200-300s Continue Lantus to 25 units nightly Monitor BG ac&hs SSI to level 5 Hypoglycemia protocol, CC diet COPD (chronic obstructive pulmonary disease) (HCC) Stable. No s/s of acute exacerbation On O2 as needed [employer] Reports that she was on a Prednisone taper [employer] and had 4 more days of 20mg [...] details regarding this patients treatment plan. Room: [address] [place] [address] Diet: Diet-Consistent Carbohydrate (75 gm) Code Status: [...] OR prochlor perazine Hope Cox APRN [facility] Medicine Division . R SPACE ALLOCATOR * Hope Cox APRN - 09/19/2019 12:08 PM FLOOR SPACE ALLOCATOR [facility] Hospitalist - Progress Note Patient Name: Isiah Do Board Account No: [id number] Date of : 1950 Date of Admission: [...] re results (as indicated), current inpatient medications, executive talent acquisition consultant notes and s upport staff notes [...] current use of insul in ([facility]) Last A1c 11.0 in May 2019 BG trends 200-300s Increase Lantus to 25 units nightly Monitor BG ac&hs Increase SSI to level 4 Hypoglycemia protocol, CC diet COPD (chronic obstructive pulmonary disease) ([facility]) Stable. No s/s of acute exacerbation On O2 as needed [employer] Reports that she was on a Prednisone taper [employer] and had 4 more days of 20mg [...] details regarding this patients treatment plan. Room: [address] [place] [address] Diet: Diet-Consistent Carbohydrate (75 gm) Code Status: [...] OR prochlor perazine Hope Cox APRN [facility] . R SPACE ALLOCATOR * Arabella Irwin RN ANP - 09/19/2019 9:41 AM FLOOR SPACE ALLOCATOR [facility] Urology Progress Note Subjective: Interval History: Intermittent [...] signed by Arabella Irwin 09/19/2019 9:41 AM R SPACE ALLOCATOR * Hope Cox, INFORMATION SECURITY RISK ANALYST - 09/18/2019 11:24 AM FLOOR SPACE ALLOCATOR [facility] Hospitalist - Progress Note Patient Name: Isiah Do Board Account No: [id number] Date of : 1950 Date of Admission: [...] the performing provider), ECG, current inpatient medications, executive talent acquisition consultant notes, supp ort staff notes, prior [...] of acute exacerbation On O2 as needed [employer]ER Continue Breo and Duonebs per home regimen [...] details regarding this patients treatment plan. Room: [address] [place] [address] Diet: Diet-Consistent Carbohydrate (75 gm) Code Status: [...] OR prochlor perazine Hope Cox APRN [facility] . R SPACE ALLOCATOR documented in this encounter H&P Notes * Lashae Crenshaw MD - 09/17/2019 12:49 PM FLOOR SPACE ALLOCATOR [facility] Hospitalist - History & Physical Patient Name: Isiah Benítez Account No: [id number] Date of : 1950 Date of Admission: [...] COPD (chronic obstructive pulmonary disease) ([facility]) Depression Draining postoperative wound 08/08/2016 Endometriosis Essential hypertension Fractures [address] in Left ankle MATA (generalized anxiety disorder) 09/24/2015 Hernia of abdominal cavity Kidney stone Mixed hyperlipidemia 09/24/2015 Morbid obesity due to excess calories ([facility]) 07/10/2016 On home oxygen therapy 2L - usually needs if has an exerbation of COPD, or resp illness SASHA on CPAP Osteoarthritis Refusal of blood transfusions as patient is Zoroastrianism Sleep apnea CPAP use Type 2 diabetes mellitus with hyperglycemia, with long-term current use of i nsulin ([facility]) 06/29/2016 Urinary calculi Urinary incontinence Urinary [...] STENT PLACEMENT; Surgeon: Darin Huber MD; Location: [facility] Main OR; Service: Urology; Laterality: [...] ANKLE ARTHRODESIS; Surgeon: Adelaida Olivas MD; Location: [facility] Main OR; Service: Orthopedics; Later ality: Left; REPAIR, INCISIONAL HERNIA, LAPAROSCOPIC, USING MESH N/A 05/25/2018 Procedure: LAPAROSCOPIC INCISIONAL HERNIA REPAIR WITH MESH; Surgeon: Medardo Tate MD; Location: [facility] Main OR; Service: General; Laterality: [...] joann es a day. vit A/vit C/biotin/zinc/copper ([id number],VIT A,C-BIOTIN, ORAL) Take by tanna th daily. [...] the performing provider), ECG, current inpatient medications, business support liaison notes, p rior admission/outpatient notes and prior [...] current use of insul in ([facility]) Continued home Lantus 20. Ordered SSI #2 with ACHS Accu-Cheks. COPD (chronic obstructive pulmonary disease) ([facility]) Not in acute exacerbation. Continued home inhalers. Continuous pulse ox Oxygen supplementation as needed. Morbid obesity due to excess calories ([facility]) Complicates all aspects of care. In [...] as noted above. Lashae Crenshaw MD [facility] Medicine [facility] . R SPACE ALLOCATOR documented in this encounter Consult Notes * Hilario Diego MD - 09/21/2019 5:28 PM FLOOR SPACE ALLOCATOR Associated Order(s): IP CONSULT TO ENDOCRINOLOGY Endocrinology [...] found to have acute recurrent ureteral stone. chirag just came back from surgery for this. She has been n.p.o. all day and blood s ugars were 90-180. She also has history of COPD and prednisone was started 2 da ys ago for 4 days. Blood sugars were running 200-300 since admission until toda y. Past Medical History: Diagnosis Date Acute bleeding 08/08/2016 Allergic rhinitis Anxiety Bronchitis, chronic ([facility]) Cataract 2011, 2013 bilat cateract surgery Chronic pain disorder back, ribs, and ankle. COPD (chronic obstructive pulmonary disease) ([facility]) Depression Draining postoperative wound 08/08/2016 Endometriosis Essential hypertension Fractures [address] in Left ankle MATA (generalized anxiety disorder) 09/24/2015 Hernia of abdominal cavity Kidney stone Mixed hyperlipidemia 09/24/2015 Morbid obesity due to excess calories ([facility]) 07/10/2016 On home oxygen therapy 2L - usually needs if has an exerbation of COPD, or resp illness SASHA on CPAP Osteoarthritis Refusal of blood transfusions as patient is Zoroastrianism Sleep apnea CPAP use Type 2 diabetes mellitus with hyperglycemia, with long-term current use of i nsulin ([facility]) 06/29/2016 Urinary calculi Urinary incontinence Urinary [...] STENT PLACEMENT; Surgeon: Darin Huber MD; Location: [facility] Main OR; Service: Urology; Laterality: Left; CYSTOSCOPY, RETROGRADE PYELOGRAM, URETEROSCOPY, LASERLITHOTRIPSY, WITH URETE RAL STENT PLACEMENT Left 08/02/2019 Procedure: CYSTOSCOPY, LEFT RETROGRADE PYELOGRAM, LEFT URETEROSCOPY, LASER LITH OTRIPSY, LEFT URETERAL STENT EXCHANGE; Surgeon: Darin Huber MD; Location: [facility] Main OR; Service: Urology; Laterality: [...] (BD ULTRA-FINE) 0.3 mL 31 gauge x 16 Inject under the skin daily. use as [...] Unknown at Unknown time vit A/vit C/biotin/zinc/copper ([id number],VIT A,C-BIOTIN, ORAL) Take by mouth daily. 09/16/2019 [...] on phone: None Gets together: None Attends confucianist service: None Active member of club or [...] is here. Hilario Diego 09/21/2019 5:28 PM R SPACE ALLOCATOR * Theresa Mata RN - 09/20/2019 3:22 PM FLOOR SPACE ALLOCATOR Inpatient Diabetes Education Note Diabetes Education provided [...] high?: Diet Education provided: Diabetes Education Materials: [facility] "Diabetes Survival Skills" Guide(Insulin info rmation sheet, Hypo and Hyperglycemia sheets, [facility] Diabetes Managament and Educa tion brochure, [...] rotation, Lantus and Humalog. 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 Unable to work due to COPD. Demonstrated use of One Touch Verio meter and will need RX for strips and Lancets. Level of service: 30 minutes Recommendations: Recommend OP DM Education or may need Home Health Education for Diabetes Please refer to [employer] directory for Housekeeping Supervisor Hotel's phone number. Lewis Mata RN, CDE Fiorella Phillips RN - 09/19/2019 12:31 PM FLOOR SPACE ALLOCATOR Associated Order(s): CONSULT TO CARE PROGRESSION Advance [...] s or concerns. Isabel Boyd RN, BSN Pharmacist Helper [phone] Arabella Cortes RN ANP - 09/18/2019 8:26 AM FLOOR SPACE ALLOCATOR Associated Order(s): IP CONSULT TO UROLOGY [facility] UROLOGY CONSULT NOTE Patient: Isiah Benítez [...] end of urination. Labs reviewed. WBC 12.83K. Knowledge Analyst 1.0. UA (+) for trace protein, >40 [...] Allergic rhinitis Anxiety Bronchitis, chronic ([facility]) Cataract 2011, 2012 bilat cateract surgery Chronic pain disorder back, ribs, and ankle. COPD (chronic obstructive pulmonary disease) ([facility]) Depression Draining postoperative wound 08/08/2016 Endometriosis Essential hypertension Fractures [address] in Left ankle MATA (generalized anxiety disorder) 09/24/2015 Hernia of abdominal cavity Kidney stone Mixed hyperlipidemia 09/24/2015 Morbid obesity due to excess calories ([facility]) 07/10/2016 On home oxygen therapy 2L - usually needs if has an exerbation of COPD, or resp illness SASHA on CPAP Osteoarthritis Refusal of blood transfusions as patient is Zoroastrianism Sleep apnea CPAP use Type 2 diabetes mellitus with hyperglycemia, with long-term current use of i nsulin ([facility]) 06/29/2016 Urinary calculi Urinary incontinence Urinary [...] STENT PLACEMENT; Surgeon: Darin Huber MD; Location: [facility] Main OR; Service: Urology; Laterality: [...] INSER TION; Surgeon: Janet Aragon MD; Location: [facility] Main OR; Service: Urolo gy; Laterality: Left; HAND SURGERY Left 03/09/2019 CTR HERNIA REPAIR HYSTERECTOMY OOPHORECTOMY REMOVAL, HARDWARE, FOOT OR ANKLE Left 04/09/2017 Procedure: LEFT ANKLE REMOVAL OF HARDWARE WITH REVISION LEFT ANKLE ARTHRODESIS; Surgeon: Adelaida Olivas MD; Location: [facility] Main OR; Service: Orthopedics; Later ality: Left; REPAIR, INCISIONAL HERNIA, LAPAROSCOPIC, USING MESH N/A 05/25/2018 Procedure: LAPAROSCOPIC INCISIONAL HERNIA REPAIR WITH MESH; Surgeon: Medardo Tate MD; Location: [facility] Main OR; Service: General; Laterality: [...] Unknown at Unknown time vit A/vit C/biotin/zinc/copper ([id number],VIT A,C-BIOTIN, ORAL) Take by mouth daily. 09/16/2019 [...] injection 2.5-5 mg 2.5-5 mg Intravenous Q4H FL N Lashae Crenshaw MD 5 mg at [...] file Gets together: Not on file Attends confucianist service: Not on file Active member of [...] 10:05 AM Positive (A) Negative Final Specific [place], UA Date/Time Value Ref Range Status 09/17/2019 [...] biliary obstruction, if clinically warranted. READING SITE: [facility] ATTESTATION STATEMENT: The staff radiologist has personally reviewed the images and dictated, reviewed, or edited the final report. Xr Chest Single View Frontal Result Date: 09/17/2019 1. No acute cardiopulmonary abnormality. 2. Low lung volumes. Mild atelectasis. READING SITE: [facility] ASSESSMENT/PLAN: 1. Left mid ureteral [...] Erika morales. We will continue to follow. R SPACE ALLOCATOR Associated attestation - Antonio Duque MD - 09/19/2019 10:59 AM FLOOR SPACE ALLOCATOR I personally saw and examined the patient. [...] Jaylyn Batres RN - 09/17/2019 1:00 PM FLOOR SPACE ALLOCATOR Associated Order(s): CONSULT - VASCULAR ACCESS TEAM Consulted for IV access. Patient had 2 previous IV's infiltrate. This RN placed a 20g 2.25" Accucath to the right AC, brisk blood aspirate, flushed. Rae MEDINA upd ated. R SPACE ALLOCATOR documented in this encounter Nursing Notes * Sunny Boyer, ADAM - 09/19/2019 11:27 PM FLOOR SPACE ALLOCATOR 09/19/19 6779 Goals for Shift Pt/Family Goal for Shift pain control Nursing Goals for the Shift pain control Plan/Interventions to meet Goal PRN pain meds, repositioning R SPACE ALLOCATOR documented in this encounter ED Notes * Rae Reyes RN - 09/17/2019 1:04 PM FLOOR SPACE ALLOCATOR 800ml NS left to go and restarted second bag of NS since Vascular Access establi shed right ac IV. Lab completed second set of cultures. Ordered diabetic tray fo r patient. C/o 8 upper abdominal pain. R SPACE ALLOCATOR * Barby Olivo RN - 09/17/2019 12:40 PM FLOOR SPACE ALLOCATOR PICC team at bedside R SPACE ALLOCATOR * Rae Reyes RN - 09/17/2019 11:35 [address] SP[address]. Funes states patient will likely need to be admitted. Notified Rachel of n eed for additional ultrasound guided IV placement. R SPACE ALLOCATOR * Rae Reyes RN - 09/17/2019 10:55 AM FLOOR SPACE ALLOCATOR Notified Dr. Funes of right arm ultrasound IV infiltrating after 200ml infused o f second bag of fluids. R SPACE ALLOCATOR * Rae Reyes RN - 09/17/2019 10:54 AM FLOOR SPACE ALLOCATOR Daughter called to obtain update. Update provided within HIPPA limits. Notified daughter that I will instruct patient to call her with any updates. R SPACE ALLOCATOR * Rae Reyes RN - 09/17/2019 10:06 AM FLOOR SPACE ALLOCATOR Up to brp with standby assist. Patient using hat to attempt to obtain UA. R SPACE ALLOCATOR * Rae Reyes RN - 09/17/2019 8:29 AM FLOOR SPACE ALLOCATOR adelfo Prabhakar did not see any viable options for placing IV. Rachel ultrasound guided trained IV, assessing at bedside for IV access. R SPACE ALLOCATOR * Rae Reyes RN - 09/17/2019 8:20 AM FLOOR SPACE ALLOCATOR Discussed with Vanna Fair if can assess for IV placement since unsuccessful x2 . Vanna assessing for IV access site now. R SPACE ALLOCATOR * Luciano Funes MD - 09/17/2019 7:57 AM FLOOR SPACE ALLOCATOR 09/17/[address] [facility] History Chief Complaint Patient presents with Chest [...] Allergic rhinitis Anxiety Bronchitis, chronic ([facility]) Cataract 2011, 2012 bilat cateract surgery Chronic pain disorder back, ribs, and ankle. COPD (chronic obstructive pulmonary disease) ([facility]) Depression Draining postoperative wound 08/08/2016 Endometriosis Essential hypertension Fractures [address] in Left ankle MATA (generalized anxiety disorder) 09/24/2015 Hernia of abdominal cavity Kidney stone Mixed hyperlipidemia 09/24/2015 Morbid obesity due to excess calories ([facility]) 07/10/2016 On home oxygen therapy 2L - usually needs if has an exerbation of COPD, or resp illness SASHA on CPAP Osteoarthritis Refusal of blood transfusions as patient is Zoroastrianism Sleep apnea CPAP use Type 2 diabetes mellitus with hyperglycemia, with long-term current use of i nsulin ([facility]) 06/29/2016 Urinary calculi Urinary incontinence Urinary [...] Patient: ISIAH BENÍTEZ Sex#: Paulina #: 1950 [facility]#: [id number] Location: [facility] ED SED-11 [facility] steven Requested: [id number] CT ABDOMEN PELVIS W CONTRAST Reason for [...] obs truction, if clinically warranted. [facility]ING SITE[facility] ATTESTATION Eugenia TATEMENT: The staff radiologist has personally reviewed the images and dictated, reviewed, or edited the final report. Xr Chest Single View Frontal Result Date: 09/17/2019 Patient: ISIAH BENÍTEZ Sex#: F #: 1950 Jose#: [id number] Location: [facility] ED SED-11 Rashaad harris Requested: [id number] XR CHEST SINGLE VIEW FRONTAL Reason for [...] lung volumes. Mild atelectasis . READING SITE: [facility] Results for orders placed or [...] Negative Ketones Urine Negative Negative mg/dL Specific [place], UA >=1.030 1.001 - 1.030 Hemoglobin Urine [...] and will complete a slow taper at [facility]. Her blood pressure was elevated and she [...] Disposition Admit Luciano Funes MD 09/17/19 1217 R SPACE ALLOCATOR * Barby Olivo RN - 09/17/2019 7:42 AM FLOOR SPACE ALLOCATOR [facility]: [id number] Expected date: Expected time: Means of arrival: Comments: soa [facility] R SPACE ALLOCATOR documented in this encounter Miscellaneous Notes * Care Progression Final DC Note - Tiny Reyna RN - 09/23/2019 3:23 PM FLOOR SPACE ALLOCATOR Final Discharge Note Final Discharge Disposition: 06-Home Under Care of Organized Home Health Service Organization Discharge goal and plan is mutually agreed upon by patient. Patient will discharge to: Home with home health resumption Transportation: Family Discharge Time: Unknown Special Instructions: Noticed that patient has discharge orders and a plan to re sume home health. Spoke with Floresita Vargas with [facility] who can resume home health, but will need resumption orders. Contacted Dr. Watts via [facility] who gave verbal to resume home health. Sent orde rs to [facility]. Patient had already discharged. Was unable to present IMM letter. Tiny Reyna RN, BSN, Pharmacist Helper [phone] s R SPACE ALLOCATOR * Nutrition Note - Glenys Carlos RD LD - 09/23/2019 10:13 AM FLOOR SPACE ALLOCATOR Nutrition Length of Stay [facility] Patient: Isiah Benítez Age: 69 y.o. [...] wound per RN notes, talked with RN 2/1 who reports red but no stage II wound or greater present Possible DC today per RN. No acute nutrition diagnosis determined at this time. Continue with current nutr ition plan. Will continue to evaluate every 5-7 days per policy. Electronically signed by Glenys Carlos 09/23/2019 10:13 AM R SPACE ALLOCATOR * End of Shift Note - Susan Brock RN - 09/23/2019 4:59 AM FLOOR SPACE ALLOCATOR End of Shift Summary and Plan of [...] strain all urine, pain meds as needed R SPACE ALLOCATOR * End of Shift Note - Annie Melchor RN - 09/22/2019 5:20 PM FLOOR SPACE ALLOCATOR End of Shift Summary and Plan of [...] strain all urine, pain meds as needed R SPACE ALLOCATOR * Nutrition Note - Letty Andrea RD LD CNSD - 09/22/2019 4:38 PM FLOOR SPACE ALLOCATOR Nutrition Education [facility] Patient: Isiah Benítez Age: 69 y.o. [...] signed by Letty Andrea 09/22/2019 4:38 PM R SPACE ALLOCATOR * End of Shift Note - Arabella Mccormick RN - 09/21/2019 6:44 PM FLOOR SPACE ALLOCATOR End of Shift Summary and Plan of [...] strain all urine, pain meds as needed R SPACE ALLOCATOR * Operative Note - Janet Aragon MD - 09/21/2019 2:42 PM FLOOR SPACE ALLOCATOR PREOPERATIVE DIAGNOSES: Left ureteral stone. POSTOPERATIVE DIAGNOSIS: Left ureteral stone. PROCEDURE: Cystourethroscopy, left ureteral stent removal, left retrograde pyel ogram, left ureteroscopy, laser lithotripsy, basket extraction of stone and left ureteral stent placement (6-Uzbek x 26 cm). SURGEON: Dr. Janet Aragon. [...] was backloaded through the scope and a 6-Uzbek x 26 cm double-J stent was threaded [...] will remove her stent in 1-2 weeks. R SPACE ALLOCATOR * Brief Operative Note - Janet Aragon MD - 09/21/2019 2:42 PM FLOOR SPACE ALLOCATOR Brief Operative Note Isiah Do Board 09/21/2019 Event Time In Procedure / Incision Start 09/21/2019 1414 Pre-op Diagnosis: Left ureteral stone Post-op Diagnosis: same Procedure: CYSTOSCOPY, LEFT RETROGRADE PYELOGRAM, LEFT URETEROSCOPY, LASER LITHOTRIPSY, LEF T URETERAL STENT PLACEMENT, Left - Ureter Surgeon(s) and Role: * Janet Aragon MD - Primary Anesthesia Type: General Staff: Change House Attendant: Janna Pascal RN; Juventino Patel RN Crozer: Jermaine Alcazar Scrub Person: Alex Arredondo Float: Koko Thomas RN; Koko Rodas RN; Lori Mancia CNA Anesthesiologist: Jermaine Hines MD DIRECTOR [employer]: Bernardino Herrera RN DIRECTOR [employer]; Rae Louie RN DIRECTOR [employer] Findings: See dictation Estimated Blood Loss: 0 mL Specimens: . ID Source Type Tests Collected By Collected At A Left Ureter Stone STONE ANALYSIS Janet Aragon MD 09/21/19 1433 Description: left ureter stone Comment: Pre-op diagnosis: N20.1 Implants: Implant Name Type Inv. Item Serial No. Partridge Farmer Lot No. LRB No. Used Action IMPLANT STENT URETERAL CONTOUR 6FR X 26CM W/O [id number] - SNA Non-Tissue Implant IMPLANT STENT URETERAL CONTOUR 6FR X 26CM W/O GUIDWIRE 180-2 [id number] NA DVTel [id number] Left 1 Implanted Complications: None Janet Aragon Date: 09/21/2019 Time: 2:42 PM R SPACE ALLOCATOR * End of Shift Note - Lauryn Ricardo RN - 09/21/2019 6:07 AM FLOOR SPACE ALLOCATOR End of Shift Summary and Plan of [...] strain all urine, pain meds as needed R SPACE ALLOCATOR * End of Shift Note - Arabella Mccormick RN - 09/20/2019 5:22 PM FLOOR SPACE ALLOCATOR End of Shift Summary and Plan of [...] strain all urine, pain meds as needed R SPACE ALLOCATOR * Assessment & Plan Note - Abdirizak Garcia NP - 09/20/2019 10:08 AM FLOOR SPACE ALLOCATOR Associated Problem(s): Elevated LFTs (Resolved 09/23/2019) Mild Likely 2/2 fatty liver and acute infection RUQ US without acuity, hepatic steatosis R SPACE ALLOCATOR * Assessment & Plan Note - Abdirizak Garcia NP - 09/20/2019 10:05 AM FLOOR SPACE ALLOCATOR Associated Problem(s): Confusion (Resolved 09/23/2019) Resolved R SPACE ALLOCATOR * Assessment & Plan Note - Art Watts II, DO - 09/20/2019 10:03 AM FLOOR SPACE ALLOCATOR Associated Problem(s): Morbid obesity due to excess calories (HCC) Complicates all aspects of care Counseled on lifestyle modifications and risk reduction strategies R SPACE ALLOCATOR * Assessment & Plan Note - Art Watts II, DO - 09/20/2019 10:03 AM FLOOR SPACE ALLOCATOR Associated Problem(s): Chronic respiratory failure (HCC) Pulmonary hygiene Continue home COPD regimen R SPACE ALLOCATOR * Assessment & Plan Note - Art Watts II, DO - 09/20/2019 10:03 AM FLOOR SPACE ALLOCATOR Associated Problem(s): Type 2 diabetes mellitus with hyperglycemia, with long-te rm current use of insulin (HCC) Continue Lantus 25 units at bedtime Severe allergy listed to metformin Start Januvia Follow-up endocrinology as an outpatient Likely made worse by recent steroid use R SPACE ALLOCATOR * Assessment & Plan Note - Art Watts II, DO - 09/20/2019 10:02 AM FLOOR SPACE ALLOCATOR Associated Problem(s): SASHA on CPAP CPAP at bedtime R SPACE ALLOCATOR * Assessment & Plan Note - Art Watts II, DO - 09/20/2019 10:01 AM FLOOR SPACE ALLOCATOR Associated Problem(s): Essential hypertension Continue chronic home medications R SPACE ALLOCATOR * Assessment & Plan Note - Art Watts II, DO - 09/20/2019 10:00 AM FLOOR SPACE ALLOCATOR Associated Problem(s): COPD (chronic obstructive pulmonary disease) (HCC) Breo Duevelinewinnie per home regimen R SPACE ALLOCATOR * Assessment & Plan Note - Art Watts II, DO - 09/20/2019 9:59 AM FLOOR SPACE ALLOCATOR Associated Problem(s): Suspected UTI Resolved Completed 5 days Rocephin R SPACE ALLOCATOR * Assessment & Plan Note - Art Watts II, DO - 09/20/2019 9:58 AM FLOOR SPACE ALLOCATOR Associated Problem(s): Generalized abdominal pain Resolved R SPACE ALLOCATOR * Assessment & Plan Note - Art Watts II, DO - 09/20/2019 9:57 AM FLOOR SPACE ALLOCATOR Associated Problem(s): Ureteral calculus, left S/P left ureteral stent placement on 08/30 without improvement, cystoscopy with st ent removal and lithotripsy 09/21 Urology recommends follow-up in 1 to 2 weeks Detrol LA pyridium R SPACE ALLOCATOR * End of Shift Note - Sunny Boyer, ADAM - 09/20/2019 5:37 AM FLOOR SPACE ALLOCATOR End of Shift Summary and Plan of [...] strain all urine, pain meds as needed R SPACE ALLOCATOR * End of Shift Note - Arabella Mccormick, ADAM - 09/19/2019 6:06 PM FLOOR SPACE ALLOCATOR End of Shift Summary and Plan of [...] oral temp, BP 170/90, CT delayed 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 CT called at 1800 to send [...] strain all urine, pain meds as needed R SPACE ALLOCATOR * Significant Event - Hope Cox APRN - 09/19/2019 3:40 PM FLOOR SPACE ALLOCATOR [facility] Hospitalist - Significant Event Patient Name: Isiah Benítez Account No: [id number] Date of : 1950 Date of Admission: [...] excess calories (HCC) Chronic respiratory failure (HCC) Elevated LFTs Received message from bedside nurseArabella. [...] results (as indicated), current inpatient medications and business support liaison notes with pertainent findings noted within the assessment/plan. I have personally sp stephen with the patient, another physican and nursing staff regarding this patient 's case. Room: [address] [place] [address] Diet: Diet-Consistent Carbohydrate (75 gm) Code Status: Full Code Hope Cox APRN [facility] . R SPACE ALLOCATOR * Assessment & Plan Note - Hope Cox APRN - 09/19/2019 12:17 PM FLOOR SPACE ALLOCATOR Associated Problem(s): Morbid obesity due to excess calories (HCC) Complicates all aspects of care Strongly recommend dietary changes, lifestyle changes and weight loss R SPACE ALLOCATOR * Assessment & Plan Note - Hope Cox APRN - 09/19/2019 12:17 PM FLOOR SPACE ALLOCATOR Associated Problem(s): Chronic respiratory failure (HCC) On chronic O2 prn Monitor Titrate O2 as needed for goal sat >90% R SPACE ALLOCATOR * Assessment & Plan Note - Hope Cox APRN - 09/19/2019 12:16 PM FLOOR SPACE ALLOCATOR Associated Problem(s): Type 2 diabetes mellitus with hyperglycemia, with long-te rm current use of insulin (HCC) Last A1c 11.0 in May 2019 BG trends 200-300s Increase Lantus to 25 units nightly Monitor BG ac&hs Increase SSI to level 4 Hypoglycemia protocol, CC diet R SPACE ALLOCATOR * Assessment & Plan Note - Hope Cox APRN - 09/19/2019 12:16 PM FLOOR SPACE ALLOCATOR Associated Problem(s): SASHA on CPAP Compliant with CPAP at home Continue home CPAP regimen R SPACE ALLOCATOR * Assessment & Plan Note - Hope Cox APRN - 09/19/2019 12:15 PM FLOOR SPACE ALLOCATOR Associated Problem(s): Essential hypertension Systolic (24hrs), Av , Min:129 , Max:145 Continue Metoprolol Resume home dose HCTZ daily Monitor trends R SPACE ALLOCATOR * Assessment & Plan Note - Hope Cox APRN - 09/19/2019 12:13 PM FLOOR SPACE ALLOCATOR Associated Problem(s): COPD (chronic obstructive pulmonary disease) (HCC) Stable. 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 09/17 UA with +LEUs and WBCs >40, no bacteria; UCx with mixed ciera Continue IV Ceftriaxone for now Repeat UA reflex R SPACE ALLOCATOR * Assessment & Plan Note - Hope Cox APRN - 09/19/2019 12:11 PM FLOOR SPACE ALLOCATOR Associated Problem(s): Generalized abdominal pain Patient reports generalized abdominal pain but this is worse in the left lower q uadrant. CT abdomen showed left-sided ureteral calculus. S/p ureteral stent on 08/30 See above plan for ureteral calculus Pain control with PO Percocet and IV Morphine R SPACE ALLOCATOR * Assessment & Plan Note - Hope Cox APRN - 09/19/2019 12:11 PM FLOOR SPACE ALLOCATOR Associated Problem(s): Ureteral calculus, left CT abdomen showed left ureteral stent and calculus. S/p left ureteral stent placement on 08/30 Urology following, appreciate assist Continue tolterodine Continue PRN PO Percocet and IV Morphine PRN Levsin and Pyridium Plans for possible ureteroscopy with laser lithotripsy and stent exchange R SPACE ALLOCATOR * End of Shift Note - Lizzie Hickey RN - 09/19/2019 2:24 AM FLOOR SPACE ALLOCATOR End of Shift Summary and Plan of [...] strain all urine, pain meds as needed R SPACE ALLOCATOR * End of Shift Note - Tania Mosocso RN - 09/18/2019 5:14 PM FLOOR SPACE ALLOCATOR End of Shift Summary and Plan of [...] strain all urine, pain meds as needed R SPACE ALLOCATOR * Care Progression Initial Assessment - Fiorella Diana RN - 09/18/2019 5:00 PM FLOOR SPACE ALLOCATOR Care Progression Initial Assessment Note Additional information: patient readmission from 09/07/2019. Assessment unchanged from last admit. PCP, pharmacy, insurance, demographics verified as unchanged. Patient is current with [facility]. She has the support of her daughter whom she live s with currently. Denies any needs at home. Would like to resume home care servi sudeep with [facility]. Referral sent. CC will continue to follow for discharge planning. Referral to see patient was placed by Referral Source: Care Progression Referral Name: Fiorella MALIK RN Pharmacist Helper, Referral Reason: Initial As sessment, Discharge planning, [...] Type of Healthcare Directive: Durable power of detention sergeant for health care Copy requested from family/patient [...] MD and recei ves their medications from [id number] [place] AT [facility] [address] [facility] [id number] R SPACE ALLOCATOR * Assessment & Plan Note - Hope Cox APRN - 09/18/2019 1:34 PM FLOOR SPACE ALLOCATOR Associated Problem(s): Chronic respiratory failure (HCC) On chronic O2 prn Monitor Titrate O2 as needed for goal sat >90% R SPACE ALLOCATOR * End of Shift Note - Lizzie Hickey RN - 09/18/2019 5:11 AM FLOOR SPACE ALLOCATOR End of Shift Summary and Plan of [...] strain all urine, pain meds as needed R SPACE ALLOCATOR * End of Shift Note - Jaclyn Boston RN - 09/17/2019 5:58 PM FLOOR SPACE ALLOCATOR End of Shift Summary and Plan of [...] strain all urine, pain meds as needed R SPACE ALLOCATOR * Assessment & Plan Note - Hope Cox APRN - 09/17/2019 12:48 PM FLOOR SPACE ALLOCATOR Associated Problem(s): Suspected UTI Patient was recently treated for a [place] UTI. UA with +LEUs and WBCs >40, no bacteria Continue IV Ceftriaxone for now Follow blood and urine cultures R SPACE ALLOCATOR * Assessment & Plan Note - Hope Cox APRN - 09/17/2019 12:47 PM FLOOR SPACE ALLOCATOR Associated Problem(s): Ureteral calculus, left CT abdomen showed left ureteral stent and calculus. S/p left ureteral stent placement on 08/30 Urology following, appreciate assist Continue tolterodine DC IV fentanyl Add Percocet 1-2 tabs Q6 PRN IV Morphine Q4 for breakthrough pain PRN Levsin and Pyridium R SPACE ALLOCATOR * Assessment & Plan Note - Hope Cox APRN - 09/17/2019 12:46 PM FLOOR SPACE ALLOCATOR Associated Problem(s): Type 2 diabetes mellitus with hyperglycemia, with long-te rm current use of insulin (HCC) Last A1c 11.0 in May 2019 BG trends 200s Increase Lantus to 22 Units nightly Monitor BG ac&hs SSI level 2 Hypoglycemia protocol, CC diet R SPACE ALLOCATOR * Assessment & Plan Note - Hope Cox APRN - 09/17/2019 12:46 PM FLOOR SPACE ALLOCATOR Associated Problem(s): SASHA on CPAP Compliant with CPAP at home Continue home CPAP regimen R SPACE ALLOCATOR * Assessment & Plan Note - Hope Cox APRN - 09/17/2019 12:46 PM FLOOR SPACE ALLOCATOR Associated Problem(s): Morbid obesity due to excess calories (HCC) Complicates all aspects of care Strongly recommend dietary changes, lifestyle changes and weight loss R SPACE ALLOCATOR * Assessment & Plan Note - Hope Cox APRN - 09/17/2019 12:45 PM FLOOR SPACE ALLOCATOR Associated Problem(s): Generalized abdominal pain Patient reports generalized abdominal pain but this is worse in the left lower q uadrant. CT abdomen showed left-sided ureteral calculus. S/p ureteral stent on 08/30 See above plan for ureteral calculus Pain control with PO Percocet and IV Morphine R SPACE ALLOCATOR * Assessment & Plan Note - Hope Cox APRN - 09/17/2019 12:45 PM FLOOR SPACE ALLOCATOR Associated Problem(s): Essential hypertension Systolic (24hrs), Av , Min:110 , Max:148 Continue Metoprolol Hold HCTZ for now until taking adequate PO Monitor trends R SPACE ALLOCATOR * Assessment & Plan Note - Hope Cox APRN - 09/17/2019 12:44 PM FLOOR SPACE ALLOCATOR Associated Problem(s): COPD (chronic obstructive pulmonary disease) (HCC) Stable. 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 Isiah Benítez is a 69 y.o. [...] on 09/22, plans to discharge on 09/23 R SPACE ALLOCATOR documented in this encounter Plan of Treatment Order Schedule Name Type Priority Associated Diag noses 1 Occurrences starting 09/23/2019 until 03/23/2020 Ambulatory referral to Outpatient Routine Pyelone phritis Home Health Referral documented as of this encounter Procedures Comments Procedure Name Priority Date/Time Associated Diag nosis GLUCOSE POC Routine 09/23/2019 12:11 PM FLOOR SPACE ALLOCATOR GLUCOSE POC Routine 09/23/2019 8:09 AM FLOOR SPACE ALLOCATOR CBC AND DIFF (MANUAL DIFF Routine 09/23/2019 IF NECESSARY) 3:03 AM FLOOR SPACE ALLOCATOR BASIC METABOLIC PANEL Routine 09/23/2019 3:03 AM FLOOR SPACE ALLOCATOR GLUCOSE POC Routine 09/22/2019 11:39 PM FLOOR SPACE ALLOCATOR GLUCOSE POC Routine 09/22/2019 7:36 PM FLOOR SPACE ALLOCATOR GLUCOSE POC Routine 09/22/2019 4:31 PM FLOOR SPACE ALLOCATOR GLUCOSE POC Routine 09/22/2019 12:16 PM FLOOR SPACE ALLOCATOR GLUCOSE POC Routine 09/22/2019 7:54 AM FLOOR SPACE ALLOCATOR GLUCOSE POC Routine 09/22/2019 5:03 AM FLOOR SPACE ALLOCATOR GLUCOSE POC Routine 09/22/2019 12:22 AM FLOOR SPACE ALLOCATOR GLUCOSE POC Routine 09/21/2019 10:24 PM FLOOR SPACE ALLOCATOR GLUCOSE POC Routine 09/21/2019 7:16 PM FLOOR SPACE ALLOCATOR GLUCOSE POC Routine 09/21/2019 4:53 PM FLOOR SPACE ALLOCATOR PULSE OXIMETRY, Routine 09/21/2019 CONTINUOUS 4:10 PM FLOOR SPACE ALLOCATOR GLUCOSE POC Routine 09/21/2019 3:05 PM FLOOR SPACE ALLOCATOR FL RETROGRADE UROGRAPHY Routine 09/21/2019 IN OR 2:52 PM FLOOR SPACE ALLOCATOR STONE ANALYSIS Timed 09/21/2019 2:33 PM FLOOR SPACE ALLOCATOR CYSTOSCOPY, RETROGRADE 09/21/2019 N20.1 PYELOGRAM, URETEROSCOPY, 2:01 PM FLOOR SPACE ALLOCATOR LASER LITHOTRIPSY, WITH URETERAL STENT PLACEMENT Special Needs ROOM [id number] ORDERING HOMIUM LASER jtBIOMED NOTIFIED REMOVAL, STENT, URETER, 09/21/2019 N20.1 CYSTOSCOPIC 2:01 PM FLOOR SPACE ALLOCATOR Special Needs ROOM 4043LINDA ORDERING HOMIUM LASER jtBIOMED NOTIFIED GLUCOSE POC Routine 09/21/2019 11:34 AM FLOOR SPACE ALLOCATOR GLUCOSE POC Routine 09/21/2019 7:40 AM FLOOR SPACE ALLOCATOR TRIIODOTHYRONINE Add-On 09/21/2019 3:43 AM FLOOR SPACE ALLOCATOR THYROID CASCADE Add-On 09/21/2019 3:43 AM FLOOR SPACE ALLOCATOR T4 FREE Add-On 09/21/2019 3:43 AM FLOOR SPACE ALLOCATOR HEMOGLOBIN A1C Add-On 09/21/2019 3:43 AM FLOOR SPACE ALLOCATOR COMPREHENSIVE METABOLIC Routine 09/21/2019 PANEL 3:43 AM FLOOR SPACE ALLOCATOR CBC AND DIFF (MANUAL DIFF Routine 09/21/2019 IF NECESSARY) 3:43 AM FLOOR SPACE ALLOCATOR GLUCOSE POC Routine 09/20/2019 11:58 PM FLOOR SPACE ALLOCATOR GLUCOSE POC Routine 09/20/2019 8:23 PM FLOOR SPACE ALLOCATOR GLUCOSE POC Routine 09/20/2019 5:01 PM FLOOR SPACE ALLOCATOR GLUCOSE POC Routine 09/20/2019 11:20 AM FLOOR SPACE ALLOCATOR GLUCOSE POC Routine 09/20/2019 7:35 AM FLOOR SPACE ALLOCATOR US ABDOMEN LIMITED Routine 09/20/2019 6:07 AM FLOOR SPACE ALLOCATOR GLUCOSE POC Routine 09/20/2019 4:06 AM FLOOR SPACE ALLOCATOR LACTATE VENOUS WB Timed 09/20/2019 2:19 AM FLOOR SPACE ALLOCATOR COMPREHENSIVE METABOLIC Routine 09/20/2019 PANEL 2:19 AM FLOOR SPACE ALLOCATOR CBC AND DIFF (MANUAL DIFF Routine 09/20/2019 IF NECESSARY) 2:19 AM FLOOR SPACE ALLOCATOR GLUCOSE POC Routine 09/20/2019 12:03 AM FLOOR SPACE ALLOCATOR TROPONIN Timed 09/19/2019 11:12 PM FLOOR SPACE ALLOCATOR LACTATE VENOUS WB Timed 09/19/2019 11:12 PM FLOOR SPACE ALLOCATOR GLUCOSE POC Routine 09/19/2019 10:26 PM FLOOR SPACE ALLOCATOR XR CHEST 2 VIEWS (PA AND Routine 09/19/2019 LATERAL) 9:19 [address] CT HEAD WO CONTRAST STAT 09/19/2019 9:12 PM FLOOR SPACE ALLOCATOR TROPONIN Timed 09/19/2019 8:15 PM FLOOR SPACE ALLOCATOR LACTATE VENOUS WB Timed 09/19/2019 8:15 PM FLOOR SPACE ALLOCATOR GLUCOSE POC Routine 09/19/2019 7:45 PM FLOOR SPACE ALLOCATOR GLUCOSE POC Routine 09/19/2019 5:09 PM FLOOR SPACE ALLOCATOR CULTURE, BLOOD Timed 09/19/2019 4:56 PM FLOOR SPACE ALLOCATOR CULTURE, BLOOD Timed 09/19/2019 4:53 PM FLOOR SPACE ALLOCATOR TROPONIN STAT 09/19/2019 4:53 PM FLOOR SPACE ALLOCATOR LIPASE Add-On 09/19/2019 4:53 PM FLOOR SPACE ALLOCATOR LACTATE VENOUS WB Routine 09/19/2019 4:53 PM FLOOR SPACE ALLOCATOR COMPREHENSIVE METABOLIC STAT 09/19/2019 PANEL 4:53 PM FLOOR SPACE ALLOCATOR COMPLETE BLOOD COUNT STAT 09/19/2019 4:53 PM FLOOR SPACE ALLOCATOR GLUCOSE POC Routine 09/19/2019 4:35 PM FLOOR SPACE ALLOCATOR ECG Routine 09/19/2019 3:45 PM FLOOR SPACE ALLOCATOR GLUCOSE POC Routine 09/19/2019 3:23 PM FLOOR SPACE ALLOCATOR GLUCOSE POC Routine 09/19/2019 11:48 AM FLOOR SPACE ALLOCATOR URINALYSIS MICROSCOPIC Routine 09/19/2019 ONLY 11:35 AM FLOOR SPACE ALLOCATOR URINALYSIS REFLEX Routine 09/19/2019 11:35 AM FLOOR SPACE ALLOCATOR CULTURE, URINE Routine 09/19/2019 11:35 AM FLOOR SPACE ALLOCATOR GLUCOSE POC Routine 09/19/2019 7:43 AM FLOOR SPACE ALLOCATOR GLUCOSE POC Routine 09/19/2019 3:40 AM FLOOR SPACE ALLOCATOR GLUCOSE POC Routine 09/18/2019 11:31 PM FLOOR SPACE ALLOCATOR GLUCOSE POC Routine 09/18/2019 9:03 PM FLOOR SPACE ALLOCATOR GLUCOSE POC Routine 09/18/2019 5:14 PM FLOOR SPACE ALLOCATOR GLUCOSE POC Routine 09/18/2019 12:16 PM FLOOR SPACE ALLOCATOR CBC AND DIFF (MANUAL DIFF Routine 09/18/2019 IF NECESSARY) 9:49 AM FLOOR SPACE ALLOCATOR GLUCOSE POC Routine 09/18/2019 8:41 AM FLOOR SPACE ALLOCATOR BASIC METABOLIC PANEL Routine 09/18/2019 8:06 AM FLOOR SPACE ALLOCATOR GLUCOSE POC Routine 09/18/2019 4:07 AM FLOOR SPACE ALLOCATOR GLUCOSE POC Routine 09/18/2019 12:04 AM FLOOR SPACE ALLOCATOR LACTATE VENOUS WB Timed 09/17/2019 10:39 PM FLOOR SPACE ALLOCATOR GLUCOSE POC Routine 09/17/2019 7:58 PM FLOOR SPACE ALLOCATOR LACTATE VENOUS WB Timed 09/17/2019 7:24 PM FLOOR SPACE ALLOCATOR GLUCOSE POC Routine 09/17/2019 5:10 PM FLOOR SPACE ALLOCATOR TROPONIN Timed 09/17/2019 3:47 PM FLOOR SPACE ALLOCATOR LACTATE VENOUS WB Timed 09/17/2019 3:47 PM FLOOR SPACE ALLOCATOR CULTURE, BLOOD STAT 09/17/2019 1:02 PM FLOOR SPACE ALLOCATOR CULTURE, BLOOD STAT 09/17/2019 12:38 PM FLOOR SPACE ALLOCATOR TROPONIN STAT 09/17/2019 12:38 PM FLOOR SPACE ALLOCATOR LACTATE VENOUS WB STAT 09/17/2019 12:38 PM FLOOR SPACE ALLOCATOR URINALYSIS MICROSCOPIC STAT 09/17/2019 ONLY 10:05 AM FLOOR SPACE ALLOCATOR URINALYSIS REFLEX STAT 09/17/2019 10:05 AM FLOOR SPACE ALLOCATOR CULTURE, URINE STAT 09/17/2019 10:05 AM FLOOR SPACE ALLOCATOR CT ABDOMEN PELVIS W STAT 09/17/2019 CONTRAST 8:59 AM FLOOR SPACE ALLOCATOR TROPONIN STAT 09/17/2019 8:38 AM FLOOR SPACE ALLOCATOR LIPASE STAT 09/17/2019 8:38 AM FLOOR SPACE ALLOCATOR COMPREHENSIVE METABOLIC STAT 09/17/2019 PANEL 8:38 AM FLOOR SPACE ALLOCATOR CBC AND DIFF (MANUAL DIFF STAT 09/17/2019 IF NECESSARY) 8:38 AM FLOOR SPACE ALLOCATOR XR CHEST SINGLE VIEW STAT 09/17/2019 FRONTAL 7:58 AM FLOOR SPACE ALLOCATOR ECG STAT 09/17/2019 7:44 AM FLOOR SPACE ALLOCATOR PULSE OXIMETRY, STAT 09/17/2019 CONTINUOUS 7:43 AM FLOOR SPACE ALLOCATOR documented in this encounter Results * GLUCOSE POC (09/23/2019 12:11 PM FLOOR SPACE ALLOCATOR) Only the most recent of 39 results within the time period is included. Glucose POC 166 (H) 70 - 100 mg/dL [facility] Specimen Performing Organization Address City/State/Zipcode Ph one Number [facility] [address] [place] [facility] [place] [id number] [facility] [address] Garcia [facility] [address], [facility] * Basic Metabolic Panel (09/23/2019 3:03 AM FLOOR SPACE ALLOCATOR) Only the most recent of 2 results within the time period is included. Pathologist [facility] Sodium 135 133 - 147 MEQ/L [facility] [place] [facility] Potassium 3.7 3.5 - 5.3 MEQ/L [facility] [place] [facility] Chloride 94 (L) 96 - 112 MEQ/L [facility] [place] [facility] Carbon Dioxide 36 (H) 20 - 32 MEQ/L [facility] [place] [facility] Anion Gap 5 5 - 17 [facility] [place] [facility] Calcium 9.0 8.4 - 10.5 mg/dL [facility] [place] [facility] Glucose 146 (H) 70 - 100 mg/dL [facility] [place] [facility] Blood Urea 30 (H) 7 - 26 mg/dL [facility] Nitrogen [facility] [place] [facility] Creatinine 0.7 0.4 - 1.1 mg/dL [facility] [place] [facility] eGFR Female AA 100 60 - 200 [facility] mL/min/1.73sq m [facility] [place] [facility] eGFR Female 83 60 - 200 [facility] Non-AA mL/min/1.73sq Cedric Israels [place] [facility] Specimen Blood Performing Organization Address City/State/Zipcode Ph one Number [facility] [address] [place] [facility], [place] [phone] [facility] [place] [address] [facility] [address] [place] [facility] * CBC and Diff (manual diff if necessary) (09/23/2019 3:03 AM FLOOR SPACE ALLOCATOR) Only the most recent of 5 results within the time period is included. [facility] Signature WBC 8.80 4.00 - 11.00 TH/uL [facility] RBC 3.48 (L) 4.00 - 5.00 MIL/uL [facility] [place] [facility] Hemoglobin 11.3 (L) 12.0 - 15.0 g/dL [facility] Hematocrit 35 (L) 36 - 45 % [facility] [place] [facility] MCV 99 80 - 99 fL [facility] [place] [facility] MCH 33 27 - 34 pg [facility] [place] [facility] MCHC 33 32 - 36 % [facility] [place] [facility] RDW 13.6 11.5 - 14.5 % [facility] [place] [facility] Platelet Count 172 140 - 400 TH/uL [facility] [place] [facility] MPV 10.0 9.4 - 12.3 fL [facility] [place] [facility] Nucleated RBCs 0 0 - 0 /100 [facility] [place] [facility] % Neutrophils 54 45 - 78 % [facility] [place] [facility] %Lymphocytes 34 15 - 47 % [facility] [place] [facility] %Monocytes 10 0 - 12 % [facility] [place] [facility] %Eosinophils 2 0 - 7 % [facility] [place] [facility] %Basophils 0 0 - 2 % [facility] [place] [facility] % Imm Grans 0 0 - 1 % [facility] [place] [facility] # Granulocytes 4.77 1.7 - 6.8 TH/uL [facility] [place] [facility] # Lymphocytes 2.95 1.0 - 3.3 TH/uL [facility] # Monocytes 0.88 0.2 - 0.9 TH/uL [facility] [place] [facility] # Eosinophils 0.16 0.0 - 0.4 TH/uL [facility] [place] [facility] # Basophils 0.01 0.0 - 0.1 TH/uL [place] [facility] [place] [facility] Specimen Blood Performing Organization Address City/State/Zipcode Ph one Number [facility] [address] [place] [address] [facility] [place] [facility] [address] [place] [address] [place] [facility] * FL Retrograde Urography in OR (09/21/2019 2:52 PM FLOOR SPACE ALLOCATOR) Specimen Impressions Performed At Fluoroscopic support for the Urology services. Becky teresa see operative LEVI report for details. READING SITE: [facility] [place] Narrative Performed At Patient: ISIAH BENÍTEZ Sex#: F #: [id number] Jose #: [id number] Location: [facility] MAIN OR NONE Procedure Requested: [id number] FL RETRO GRADE UROGRAPHY IN OR Reason [...] Rad Results In - 09/21/2019 3:21 PM FLOOR SPACE ALLOCATOR Patient: ISIAH BENÍTEZ Sex#: F #: 1950 Jose#: [id number] Location: SLE MAIN OR NONE Procedure Requested: [id number] FL RETROGRADE UROGRAPHY IN OR Reason for [...] see operative report for details. READING SITE: [facility] Performing Organization Address [facility] one Number LEVI * Stone Analysis (09/21/2019 2:33 PM FLOOR SPACE ALLOCATOR) Stone Color Brown [facility] Stone Size [id number]: Specimen received mm [facility] as fragments. Stone Weight 61.4 mg [facility] Stone CommentComment: Percentage [facility] Composition (Represents the % compositi on) Stone Ca 10 % [facility] oxalate dihydrate Stone Ca 90 % [facility] oxalate monohydr Stone Comment Comment [facility] Comment: Calculi report will follow via computer, mail or granulator operator delivery. Stone Comment Comment [facility] Comment: Physician questions regarding Calculi Analysis contact [facility] at: [phone]. Disclaimer : Comment [facility] Comment: This test was developed and its performance characteristics determined by [facility]. It has not been cleared or approved by the Food and Drug Administration. Test performed at [facility] Stone Analysis [address] [place] [address] [place] [address] Source CommentComment: Left Ureter [facility] Specimen Stone - Left Ureter Performing Organization Address [facility] one Number [facility] [address] [place], [place] [address] [facility] Interface [id number] [place] [address] [place] [address] * Triiodothyronine (09/21/2019 3:43 AM FLOOR SPACE ALLOCATOR) Triiodothyronin 0.8 (L) 1.0 - 1.7 ng/mL [facility] Specimen Blood Performing Organization Address [facility] Ph one Number [facility] [address] [place] [address] LABORATORIES [facility] [address] [place] [address] * T4 Free (09/21/2019 3:43 AM FLOOR SPACE ALLOCATOR) T4 Free 1.0 0.8 - 2.2 ng/dL [facility] [place] [facility] Specimen Blood Performing Organization Address [facility] one Number [facility] [address] [place], [place] [phone] [facility] [place] [address] [place] [address] [place] [facility] * Thyroid Crook (09/21/2019 3:43 AM FLOOR SPACE ALLOCATOR) Thyroid 0.37 (L) 0.47 - 4.68 uIU/mL [facility] Roshni bello Stimulating Cedric Mancusos Hormone [place] [facility] Specimen Blood Performing Organization Address [facility] one Number [facility] [address] [place], [place] [phone] [facility] [address] [place] [address] [place] [facility] * Hemoglobin A1C (09/21/2019 3:43 AM FLOOR SPACE ALLOCATOR) Pathologist [facility] Hemoglobin A1C 12.4 (H) 4.0 - 5.6 % [facility] Comment: Hospital Lab Non-diabetic 4.0 - 5.6 % Prediabetes 5.7 - 6.4 % Diabetes >= 6.5 % Specimen Blood Performing Organization Address City/[facility] one Number [facility] [address] [place] [address] LABORATORIES [facility] [address] [place] [address] * Comprehensive Metabolic Panel (09/21/2019 3:43 AM FLOOR SPACE ALLOCATOR) Only the most recent of 4 results within the time period is included. Sodium 136 133 - 147 MEQ/L [facility] [place] [facility] Potassium 3.9 3.5 - 5.3 MEQ/L [facility] [place] [facility] Chloride 96 96 - 112 MEQ/L [facility] [place] [facility] Carbon Dioxide 36 (H) 20 - 32 MEQ/L [facility] [place] [facility] Anion Gap 5 5 - 17 [facility]'s [facility] [place] [facility] Calcium 10.0 8.4 - 10.5 mg/dL [facility] [place] [facility] Glucose 107 (H) 70 - 100 mg/dL [facility] [place] [facility] Protein Total 7.8 6.0 - 8.2 g/dL [facility] Serum [facility] [place] [facility] Albumin 4.1 3.5 - 5.0 g/dL [facility] [place] [facility] Alkaline 142 (H) 42 - 140 IU/L [facility] Phosphatase [facility] [place] [facility] Alanine 94 (H) 0 - 34 IU/L [facility] Aminotransferas [facility] [place] [facility] Aspartate 36 15 - 46 IU/L [facility] Aminotransferas [facility] [place] [facility] Bilirubin Total 0.4 0.2 - 1.3 mg/dL [facility] [place] [facility] Blood Urea 26 7 - 26 mg/dL [facility] Nitrogen [facility] [place] [facility] Creatinine 0.8 0.4 - 1.1 mg/dL [facility] [place] [facility] eGFR Female AA 86 60 - 200 [facility] mL/min/1.73sq [facility] eGFR Female 72 60 - 200 [facility] Non-AA mL/min/1.73sq [facility] Specimen Blood Performing Organization Address City/State/Zipcode Ph one Number [facility] [address] [facility] [place] [address] [facility] [address] [place] [facility] [address] [facility] [place] [address] [place] [facility] * US Abdomen limited (09/20/2019 6:07 AM FLOOR SPACE ALLOCATOR) Specimen Impressions Performed At Impression: LEVI 1. Diffuse hepatic steatosis without fo rosalind hepatic lesion. 2. Cholecystectomy. ATTESTATION STATEMENT: The Staff Radiologist has personally re viewed this study and agrees with the findings in this report. READING SITE: [facility] Narrative Performed At Patient: ISIAH BENÍTEZ Sex#: F #: 1950 Jose #: [id number] Location: SLE 4 PCU 1 4042-08 Access ion#: [id number] Procedure Requested: [id number] US ABDOM EN LIMITED Reason for Exam: [...] Rad Results In - 09/20/2019 7:38 AM FLOOR SPACE ALLOCATOR Patient: ISIAH BENÍTEZ Sex#: F #: 1950 Jose#: [id number] Location: SLE 4 U 1 4042-08 Procedure Requested: [id number] US ABDOMEN LIMITED Reason for Exam: elevated [...] the findings in this report. READING SITE: [facility] Performing Organization Address [facility] one Number LEVI * Lactate Venous WB (09/20/2019 2:19 AM FLOOR SPACE ALLOCATOR) Only the most recent of 8 results within the time period is included. Lactate Venous 1.8 0.0 - 2.0 mmol/L [facility] [place] [facility] Specimen Blood Narrative Performed At Reflex sepsis screen >2.0 [facility] Performing Organization Address [facility] one [facility] [address] [place] [address] [facility] [address] [place] [address] [place] [facility] [address] [place] [address], [facility] * Troponin - 3 and 6 hr (09/19/2019 11:12 PM FLOOR SPACE ALLOCATOR) Only the most recent of 6 results within the time period is included. Troponin <0.01 0.00 - 0.03 ng/mL [facility] Comment: [facility] Troponin Value [place] [facility] Interpretation 0.00 - 0.03 Healthy 0.04 - 0.12 Increased Cardiac Risk >0.12 Myocardial Infarction Troponin may not become elevated until 6 to 8 hours after onset of symptoms. Specimen Blood Performing Organization Address [facility] one Number [facility] [address] [place] [address] [facility] [place] [place] [address] [place] [facility] Rachel [place] [address] [place] [facility] * XR Chest 2 views (PA and lateral) (09/19/2019 9:19 PM FLOOR SPACE ALLOCATOR) Specimen Impressions Performed At 1. Bibasilar subsegmental atelectasis. LEVI READING SITE: [facility] Narrative Performed At Patient: ISIAH BENÍTEZ Sex#: F #: 1950 Jose #: [id number] Location: [place] [address] 4042-08 Access ion#: [id number] Procedure Requested: [id number] XR CHEST 2 VIEWS (PA AND LATERAL) [...] Rad Results In - 09/19/2019 9:54 PM FLOOR SPACE ALLOCATOR Patient: ISIAH BENÍTEZ Sex#: F #: 1950 Jose#: [id number] Location: [place] [address] 4042-08 Procedure Requested: [id number] XR CHEST 2 VIEWS (PA AND LATERAL) [...] IMPRESSION 1. Bibasilar subsegmental atelectasis. READING SITE: [facility] Performing Organization Address City/State/Zipcode Ph one Number LEVI * CT Head wo contrast (09/19/2019 9:12 PM FLOOR SPACE ALLOCATOR) Specimen Impressions Performed At Impression: LEVI No acute intracranial process. Mild cerebral volume loss. Mild chronic small vessel ischemic disease. The above findings are in general agree ment with those in the preliminary report provided by [employer]. READING SITE: [facility]. ATTESTATION STATEMENT: The Staff Radiol ogist has personally reviewed the images and dictated, reviewed, or edite d the final report. Narrative Performed At Patient: ISIAH BENÍTEZ Sex#: F #: 1950 Jose #: [id number] Location: [place] [address] 4043- Access ion#: [id number] Procedure Requested: [id number] CT HEAD WO CONTRAST Reason for Exam: [...] The mastoid air cells are clear. The barrel bridge assembler topogram shows no lytic lesio n or fracture. Procedure Note Interface, Rad Results In - 09/20/2019 10:19 AM FLOOR SPACE ALLOCATOR Patient: ISIAH BENÍTEZ Sex#: Paulina #: 1950 Jose#: [id number] Location: SLE 4 U 1 4043-01 Procedure Requested: [id number] CT HEAD WO CONTRAST Reason for Exam: [...] The mastoid air cells are clear. The barrel bridge assembler topogram shows no lytic lesion or fracture. IMPRESSION Impression: No acute intracranial process. Mild cerebral volume loss. Mild chronic small vessel ischemic disease. The above findings are in general agreement with those in the preliminary report provided by [employer]. READING SITE: [facility]. ATTESTATION STATEMENT: The Staff Radiologist has personally reviewed the images and dictated, reviewed, or edited the final report. Performing Organization Address City/State/Zipcode Ph one Number [facility] * Culture, Blood (09/19/2019 4:56 PM FLOOR SPACE ALLOCATOR) Only the most recent of 4 results within the time period is included. Culture Result No Growth at 5 days [facility] Specimen Blood Narrative Performed At 3ml rfa [facility] Performing Organization Address City/[facility] Ph one Number [facility] [address] [place] [address] LABORATORIES [facility] [address] [place] [address] * Lipase (09/19/2019 4:53 PM FLOOR SPACE ALLOCATOR) Only the most recent of 2 results within the time period is included. Lipase 143 23 - 300 IU/L [facility] Specimen Blood Performing Organization Address City/[facility] one Number [facility] [address] [place] [address] [facility] [address] [facility] [place] [address] [place] [facility] * Complete Blood Count (09/19/2019 4:53 PM FLOOR SPACE ALLOCATOR) WBC 10.54 4.00 - 11.00 TH/uL [facility] [place] [facility] RBC 4.33 4.00 - 5.00 MIL/uL [facility] [place] [facility] Hemoglobin 14.0 12.0 - 15.0 g/dL [facility] [place] [facility] Hematocrit 43 36 - 45 % [facility] [place] [facility] MCV 99 80 - [address] [facility] [place] [facility] MCH 32 27 - 34 pg [facility] [place] [facility] MCHC 33 32 - 36 % [facility] [place] [facility] RDW 13.1 11.5 - 14.5 % [facility] [place] [facility] Platelet Count 197 140 - 400 TH/uL [facility] [place] [facility] MPV 10.5 9.4 - 12.3 fL [facility] [place] [facility] Nucleated RBCs 0 0 - 0 /100 [facility] [place] [facility] Specimen Blood Performing Organization Address City/[facility] Ph one Number [facility] [address] [place] [address] [facility] [facility] [address] [facility] [place] [address] [place] [facility] * Electrocardiogram (ECG) (09/19/2019 3:45 PM FLOOR SPACE ALLOCATOR) Only the most recent of 2 results within the time period is included. QRSd 108 [employer]AC[employer]ER QT 384 TRACEMASTER QTC 454 TRACEMASTER ECGHR 84 TRACEMASTER ECGPR 144 TRACEMASTER Specimen Narrative Performed At [facility] Eugenia [facility] Test Date: 2019-09-19 Pat Name: ISIAH BENÍTEZ Department: SP1 Room: [facility] Gender: Female Principal Trainer: [id number] : 1950 Requested By: HOPE COX Order Number: [id number] Reading MD: Louie Reyes Measurements Intervals Evant Rate: 84 P: 38 FL: 144 QRS: 3 QRSD: 108 T: 24 QT: 384 QTc: 454 Interpretive Statements SINUS RHYTHM PROBABLE LEFT VENTRICULAR HYPERTROPHY Electronically Signed On 09-20-2019 10:3 7:02 FLOOR SPACE ALLOCATOR by Louie Reyes Procedure Note Interface, External Ris In - 09/20/2019 10:37 AM FLOOR SPACE ALLOCATOR [facility] Test Date: 2019-09-19 Pat Name: ISIAH BENÍTEZ Department: SP1 Room: 4043 Gender: Female Principal Trainer: [id number] : 1950 Requested By: HOPE COX Order Number: [id number] Reading MD: Louie Reyes Measurements Intervals Evant Rate: 84 P: 38 FL: 144 QRS: 3 QRSD: 108 T: 24 QT: 384 QTc: 454 Interpretive Statements SINUS RHYTHM PROBABLE LEFT VENTRICULAR HYPERTROPHY Electronically Signed On 09-20-2019 10:37:02 FLOOR SPACE ALLOCATOR by Louie Reyes Performing Organization Address City/State/Zipcode Ph one Number TRAC[facility]ASTER * Urinalysis Microscopic Only (09/19/2019 11:35 AM FLOOR SPACE ALLOCATOR) Only the most recent of 2 results within the time period is included. Microscopic RBC >40 (A) 0 - 5 /hpf [facility] Urine [facility] [place] [facility] Microscopic WBC 0-5 0 - 5 /hpf [facility] Urine [facility] [place] [facility] Epithelial Absent Absent [facility] Cells [facility] [place] [facility] Hyaline Cast Absent Absent [facility] [place] [facility] Bacteria Absent Absent [facility] [place] [facility] Specimen Catheter Urine Performing Organization Address City/[facility] Ph one Number [facility] [address] [place] [address] [facility] [address] [place] [address] [place] [facility] * Culture, Urine (09/19/2019 11:35 AM FLOOR SPACE ALLOCATOR) Only the most recent of 2 results within the time period is included. Culture Result No growth [facility] Specimen Catheter Urine Performing Organization Address City/[facility] one Number [address] [address] LABORATORIES [facility] [address] [place] [address] * Urinalysis Reflex (09/19/2019 11:35 AM FLOOR SPACE ALLOCATOR) Only the most recent of 2 results within the time period is included. Appearance, Yellow [facility] Urine [facility] [place] [facility] Glucose Urine >=1000 (A) Negative mg/dL [facility] [place] [facility] Bilirubin Urine Negative Negative [facility] [place] [facility] Ketones Urine Negative Negative mg/dL [facility] [place] [facility] Specific 1.020 1.001 - 1.030 [facility] [place], UA [facility] [place] [facility] Hemoglobin Large (A) Negative [facility] Urine [facility] [place] [facility] PH Urine 5.5 5.0 - 8.0 [facility] [place] [facility] Protein Urine 30 (A) Negative mg/dL [facility] [place] [facility] Urobilinogen Negative Negative EU/dL [facility] Urine [facility] [place] [facility] Nitrite Urine Negative Negative [facility] [place] [facility] Leukocyte Negative Negative [facility] Esterase [facility] [place] [facility] Specimen Catheter Urine Performing Organization Address City/State/Zipcode Ph one Number [facility] [address] [place] [address] [facility] [address] [place] [address] [facility] * CT Abdomen Pelvis w contrast (09/17/2019 8:59 AM FLOOR SPACE ALLOCATOR) Specimen Impressions Performed At 1. Interval placement [...] biliary obstruction, if clinically warranted. READING SITE: [facility] ATTESTATION STATEMENT: The staff radiol ogist has personally reviewed the images and dictated, reviewed, or edite d the final report. Narrative Performed At Patient: ISIAH BENÍTEZ Sex#: F #: [id number] Jose #: [id number] Location: [facility] - Procedure Requested: [id number] CT ABDOM EN PELVIS W CONTRAST Reason [...] Rad Results In - 09/17/2019 9:54 AM FLOOR SPACE ALLOCATOR Patient: ISIAH BENÍTEZ Sex#: Paulina #: 1950 Jose#: [id number] Location: [facility] ED SED-11 Procedure Requested: [id number] CT ABDOMEN PELVIS W CONTRAST Reason for [...] biliary obstruction, if clinically warranted. READING SITE: [facility] ATTESTATION STATEMENT: The staff radiologist has personally reviewed the images and dictated, reviewed, or edited the final report. Performing Organization Address City/State/Zipcode Ph one Number [place] * XR Chest single view frontal (09/17/2019 7:58 AM FLOOR SPACE ALLOCATOR) Specimen Impressions Performed At 1. No acute cardiopulmonary abnormality. [place] 2. Low lung volumes. Mild atelectasis . READING SITE: [facility] Narrative Performed At Patient: ISIAH BENÍTEZ Sex#: F #: [id number] Jose #: [id number] Location: [facility] ED SED-11 Procedure Requested: [id number] XR CHEST SINGLE VIEW FRONTAL Reason for [...] Rad Results In - 09/17/2019 8:14 AM FLOOR SPACE ALLOCATOR Patient: ISIAH BENÍTEZ Sex#: F #: 1950 Jose#: [id number] Location: [facility] ED SED-11 Procedure Requested: [id number] XR CHEST SINGLE VIEW FRONTAL Reason for [...] Low lung volumes. Mild atelectasis. READING SITE: [facility] Address City/State/Zipcode one Edgar SIMS documented in [...] Medication Order MAR Action 09/22/2019 8:23 PM FLOOR SPACE ALLOCATOR 25 mg amitriptyline (ELAVIL) tablet 25 mg Given 25 mg, Oral, Nightly, First dose on 09/17/19 at 2100 25 mg Given 09/21/2019 8:13 PM FLOOR SPACE ALLOCATOR 25 mg Given 09/20/2019 10:13 PM FLOOR SPACE ALLOCATOR 09/22/2019 8:23 PM FLOOR SPACE ALLOCATOR 40 mg atorvastatin (LIPITOR) tablet 40 mg Given 40 mg, Oral, Nightly, First dose on 09/17/19 at 2100 40 mg Given 09/21/2019 8:13 PM FLOOR SPACE ALLOCATOR 40 mg Given 09/20/2019 10:13 PM FLOOR SPACE ALLOCATOR 09/21/2019 8:16 AM FLOOR SPACE ALLOCATOR 2 g cefTRIAXone (ROCEPHIN) injection 2 g Given 2 g, Intravenous, Daily, Indications: UTI, First dose on 09/17/19 at 1300, If giving IV push, reconstitute each vial with 20 ml sterile water and give over 3-5 minutes If sterile water is unavailable, may use Bacteriostatic Water or Normal Saline for reconstitution , 2 g Given 09/20/2019 9:03 AM FLOOR SPACE ALLOCATOR 2 g Given 09/19/2019 8:17 AM FLOOR SPACE ALLOCATOR 09/23/2019 8:23 AM FLOOR SPACE ALLOCATOR 20 mg citalopram (CeleXA) tablet 20 mg Given 20 mg, Oral, Daily, First dose on 09/17/19 at 1240 20 mg Given 09/22/2019 8:50 AM FLOOR SPACE ALLOCATOR 20 mg Given 09/20/2019 9:00 AM FLOOR SPACE ALLOCATOR 09/17/2019 8:04 PM FLOOR SPACE ALLOCATOR 10 mg cyclobenzaprine (FLEXERIL) tablet 10 mg [...] less than 70 mg/dL., 09/21/2019 1:52 PM FLOOR SPACE ALLOCATOR 12.5 mg diphenhydrAMINE (BENADRYL) injection Given 12.5 mg 12.5 mg, Intravenous, Once, Ju 09/21/19 at 1415, For 1 dose, Pre-op 09/22/2019 10:31 AM FLOOR SPACE ALLOCATOR 100 mg docusate sodium (COLACE) capsule 100 mg Given 100 mg, Oral, 2 times daily PRN, stool softening, Starting [place] 09/17/19 at 1238 , DO NOT CRUSH OR CHEW., 100 mg Given 09/20/2019 9:00 AM FLOOR SPACE ALLOCATOR 100 mg Given 09/17/2019 5:47 PM FLOOR SPACE ALLOCATOR 09/21/2019 1:52 PM FLOOR SPACE ALLOCATOR 20 mg famotidine (PEPCID) injection 20 mg [...] or PO opiate therapy., 09/18/2019 9:04 AM FLOOR SPACE ALLOCATOR 25 mcg fentaNYL (SUBLIMAZE) injection 25 mcg Given 25 mcg, Intravenous, Every 2 hours PRN, breakthrough pain, Starting [place] 09/17/19 at 1239, Administer over 2 minutes; max dose for IVP is 2 mcg/kg. Note: Limit does not apply to patients who may be tolerant to opioid therapy or on continuous IV or PO opiate therapy., 25 mcg Given 09/18/2019 3:57 AM FLOOR SPACE ALLOCATOR 25 mcg Given 09/17/2019 7:58 PM FLOOR SPACE ALLOCATOR 09/21/2019 3:14 PM FLOOR SPACE ALLOCATOR 50 mcg fentaNYL (SUBLIMAZE) injection 25-50 mcg [...] dose has been reached., 09/17/2019 8:44 AM FLOOR SPACE ALLOCATOR 50 mcg fentaNYL (SUBLIMAZE) injection 50 mcg Given 50 mcg, Intravenous, Once, [place] 09/17/19 at 0800, For 1 dose, Administer over 2 minutes; max dose for IVP is 2 mcg/kg. Note: Limit does not apply to patients who may be tolerant to opioid therapy o r on continuous IV or PO opiate therapy., 09/17/2019 9:41 AM FLOOR SPACE ALLOCATOR 50 mcg fentaNYL (SUBLIMAZE) injection 50 mcg Given 50 mcg, Intravenous, Once, [place] 09/17/19 at 0941, For 1 dose, Administer over 2 minutes; max dose for IVP is 2 mcg/kg. Note: Limit does not apply to patients who may be tolerant to opioid therapy o r on continuous IV or PO opiate therapy., 09/23/2019 8:10 AM FLOOR SPACE ALLOCATOR 1 puff fluticasone furoate-vilanterol (BREO Given ELLIPTA) 200-25 mcg/actuation inhaler 1 puff 1 puff, Inhalation, Daily, First dose o n [place] 09/17/19 at 1240, Rinse mouth with water after use if patient not on vent. 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 May give IM or SQ in arm and turn patient on side. Reconstitute powder for injection by adding 1 mL of teacher selection specialist-supplied sterile diluent or sterile water for injection [...] for injection by adding 1 mL of teacher selection specialist-supplied sterile diluent o r sterile water for [...] less than 70 mg/dL., 09/17/2019 1:12 PM FLOOR SPACE ALLOCATOR 25 mg hydroCHLOROthiazide (HYDRODIURIL) tablet Given 25 mg 25 mg, Oral, Daily, First dose on 09/17/19 at 1240 09/23/2019 8:23 AM FLOOR SPACE ALLOCATOR 25 mg hydroCHLOROthiazide (HYDRODIURIL) tablet Given 25 mg 25 mg, Oral, Daily, First dose on Wed09/20/19 at 0900 25 mg Given 09/22/2019 8:50 AM FLOOR SPACE ALLOCATOR 25 mg Given 09/20/2019 9:00 AM FLOOR SPACE ALLOCATOR 09/21/2019 8:13 PM FLOOR SPACE ALLOCATOR 0.125 mg hyoscyamine (LEVSIN/SL) SL tablet 0.125 Given mg 0.125 mg, Sublingual, Every 4 hours PRN , bladder spasms, Starting Wed09/18/19 at 0905 0.125 mg Given 09/20/2019 2:37 PM FLOOR SPACE ALLOCATOR 0.125 mg Given 09/18/2019 11:59 PM FLOOR SPACE ALLOCATOR 09/17/2019 8:05 PM FLOOR SPACE ALLOCATOR 20 Units Left Low er Abdomen insulin glargine (LANTUS) injection 20 Given Units 20 Units, Subcutaneous, Nightly, First dose on Wed09/17/19 at 209909/18/2019 9:15 PM FLOOR SPACE ALLOCATOR 22 Units Left Arm insulin glargine (LANTUS) injection 22 Given Units 22 Units, Subcutaneous, Nightly, First dose (after last modification) on Wed09/18/19 at 209909/22/2019 9:31 PM FLOOR SPACE ALLOCATOR 25 Units Left Low er Abdomen insulin glargine (LANTUS) injection 25 Given Units 25 Units, Subcutaneous, Nightly, First dose (after last modification) on Wed09/19/19 at 2100 25 Units Left Lower Abdomen Given 09/21/2019 8:14 PM FLOOR SPACE ALLOCATOR 25 Units Right Lower Abdomen Given 09/20/2019 9:00 PM FLOOR SPACE ALLOCATOR 09/18/2019 9:15 PM FLOOR SPACE ALLOCATOR 3 Units Left Arm insulin lispro (HumaLOG) [...] Units Right Arm Given 09/18/2019 5:39 PM FLOOR SPACE ALLOCATOR 3 Units Left Arm Given 09/18/2019 12:43 PM FLOOR SPACE ALLOCATOR 09/19/2019 5:34 PM FLOOR SPACE ALLOCATOR 4 Units Left Arm insulin lispro (HumaLOG) [...] Units Left Arm Given 09/19/2019 12:19 PM FLOOR SPACE ALLOCATOR 09/19/2019 8:17 AM FLOOR SPACE ALLOCATOR 5 Units Right Lo wer Abdomen insulin [...] - dose per table, 09/23/2019 12:39 PM FLOOR SPACE ALLOCATOR 3 Units Right Lo wer Abdomen insulin [...] Left Lower Abdomen Given 09/22/2019 9:31 PM FLOOR SPACE ALLOCATOR 15 Units Left Lower Abdomen Given 09/22/2019 4:41 PM FLOOR SPACE ALLOCATOR 09/17/2019 10:15 AM FLOOR SPACE ALLOCATOR 5 Units Right Ar m insulin regular (HumuLIN R) injection 5 Given Units 5 Units, Subcutaneous, Once, Sun 0 at 0945, For 1 dose 09/17/2019 9:01 AM FLOOR SPACE ALLOCATOR 91 mL iohexol (OMNIPAQUE) 350 mg iodine/mL Given injection 91 mL 91 mL, Intravenous, Once in imaging, contrast, Starting 09/17/19 at 0900, For 1 dose 09/21/2019 1:52 PM FLOOR SPACE ALLOCATOR 50 mL/hr 50 mL/hr lactated ringers infusion New Bag 50 mL/hr, Intravenous, Continuous, Starting Ju 09/21/19 at 1415, Pre-op 09/21/2019 10:16 PM FLOOR SPACE ALLOCATOR 3 mg melatonin tablet 3 mg Given 3 mg, Oral, Nightly PRN, sleep, Startin g 09/17/19 at 1238, Give 3-4 hours prior to planned bedtime., 3 mg Given 09/20/2019 10:13 PM FLOOR SPACE ALLOCATOR 3 mg Given 09/19/2019 8:22 PM FLOOR SPACE ALLOCATOR 09/23/2019 8:23 AM FLOOR SPACE ALLOCATOR 100 mg metoprolol tartrate (LOPRESSOR) tablet Given 100 mg 100 mg, Oral, 2 times daily, First dose on 09/17/19 at 1315, Hold for SBP <100, HR <55, 100 mg Given 09/22/2019 8:23 PM FLOOR SPACE ALLOCATOR 100 mg Given 09/22/2019 8:49 AM FLOOR SPACE ALLOCATOR 09/22/2019 4:45 AM FLOOR SPACE ALLOCATOR 4 mg morphine 4 mg/mL injection 4 [...] therapy., 4 mg Given 09/21/2019 10:15 PM FLOOR SPACE ALLOCATOR 4 mg Given 09/21/2019 6:33 PM FLOOR SPACE ALLOCATOR 09/21/2019 1:45 PM FLOOR SPACE ALLOCATOR 4 mg morphine 4 mg/mL injection 4 mg Given 4 mg, Intravenous, Once, Ju 09/21/19 at 1400, For 1 dose, Pre-op, Administer over 5 min; max dose of IVP is 10 mg. Note: Limit does not apply to patients who may be tolerant to opioid therapy o r on continuous IV or PO opiate therapy., 09/17/2019 12:31 PM FLOOR SPACE ALLOCATOR 1 tablet oxyCODONE-acetaminophen (PERCOCET) 5-325 Given mg 1 tablet 1 tablet, Oral, Once, 09/17/19 at 1216, For 1 dose, Do not exceed 4 GM/DA Y of acetaminophen. If 65 or older do no t exceed 3 GM/DAY. If chronic alcoholic d o not exceed 2 GM/DAY., 09/23/2019 8:23 AM FLOOR SPACE ALLOCATOR 2 tablets oxyCODONE-acetaminophen (PERCOCET) 5-325 Given mg 1-2 tablet 1-2 tablet, Oral, Every 6 hours PRN, moderate pain (pain score 4-6), severe pain (pain score 7-10), Starting 09/18/19 at 1139, Do not exceed 4 GM/DAY of acetaminophen. If 65 or older do no t exceed 3 GM/DAY. If chronic alcoholic d o not exceed 2 GM/DAY., 2 tablets Given 09/23/2019 2:00 AM FLOOR SPACE ALLOCATOR 2 tablets Given 09/22/2019 7:48 PM FLOOR SPACE ALLOCATOR 09/22/2019 10:31 AM FLOOR SPACE ALLOCATOR 100 mg phenazopyridine (PYRIDIUM) tablet 100 mg [...] through a central line., 09/22/2019 8:50 AM FLOOR SPACE ALLOCATOR 20 mg predniSONE (DELTASONE) tablet 20 mg Given 20 mg, Oral, Daily, First dose on 09/19/19 at 1230, For 4 doses, Give with food to reduce GI upset, 20 mg Given 09/20/2019 9:00 AM FLOOR SPACE ALLOCATOR 20 mg Given 09/19/2019 12:19 PM FLOOR SPACE ALLOCATOR 09/17/2019 1:12 PM FLOOR SPACE ALLOCATOR 5 mg prochlorperazine (COMPAZINE) injection Given 2.5-5 [...] and refuses IM injection., 09/17/2019 8:44 AM FLOOR SPACE ALLOCATOR 1,000 mL 983.61 mL/hr sodium chloride 0.9% (NS) IV Bolus New Bag 1,000 mL, Intravenous, Administer over 61 Minutes, Once, 09/17/19 at 0800, For 1 dose 09/17/2019 10:15 AM FLOOR SPACE ALLOCATOR 1,000 mL 983.61 mL/hr sodium chloride 0.9% (NS) IV Bolus New Bag 1,000 mL, Intravenous, Administer over 61 Minutes, Once, 09/17/19 at 0945, For 1 dose 09/23/2019 9:07 AM FLOOR SPACE ALLOCATOR 2 mg tolterodine (DETROL) tablet 2 mg Given 2 mg, Oral, 2 times daily, First dose o n 09/17/19 at 1240 2 mg Given 09/22/2019 8:26 PM FLOOR SPACE ALLOCATOR 2 mg Given 09/22/2019 8:50 AM FLOOR SPACE ALLOCATOR documented in this encounter Additional Health Concerns Last Indicated Resolved Time Infection Onset Date 08/31/2019 09/17/2019 8:17 AM FLOOR SPACE ALLOCATOR RSV 08/31/2019 documented as of this encounter
--- OUTSIDE RECORDS SUMMARY | 2020-03-12 09:03 | XMS REPORT | Encounter Summary ---
Author Author [facility] Organization [facility] Address Unknown Phone Unavailable Care Team Providers Care Quality Checker Name Role Phone Ebony Sharp MD PCP Reason for Visit * HH Auth Cert Referred By Contact Referred To Contact Status Reason Specialty Diagnoses / Procedures Encounter Details Care Team Description Date Type Department Sherley Dixon TELEPHONE ENCOUNTER 09/25/2019 Home Care Visit [facility] Home Care and page [facility] [address] [facility] [address] [place] [address] Social History Date Tobacco Use [...] this visit Shared: Advance 09/09/2019 Directives Disciplines: Nursing Home, SHARED Active 1 goal linked to scheduled/documented intervention 1 goal intervention scheduled/documented in this visit Shared: Diabetes: 09/09/2019 Knowledge Deficit Related to Diabetic Foot Care Disciplines: Nursing Home, Physical Therapy, Occupational Therapy, SHARED Active 1 goal linked to scheduled/documented intervention 1 goal intervention scheduled/documented in this visit Shared: Medication Management 09/09/2019 Management and Disciplines: Education Nursing Home, Physical of All Therapy, Occupational Home Therapy, SHARED Medication s Including Prescripti on and OTC. Active 1 goal linked to scheduled/documented intervention 1 goal intervention scheduled/documented in this visit Shared: Pain Management 09/09/2019 Disciplines: Nursing Home, Physical Therapy, Occupational Therapy, SHARED Active 1 goal linked to scheduled/documented intervention 1 goal intervention scheduled/documented in this visit Shared: Patient Strength, 09/09/2019 Goals and Care Preferences Disciplines: Nursing Home, Physical Therapy, Occupational Therapy, SHARED Goal [...] Goal: Directive yes Shared: Durable Power of Glue Spreading Machine Operator Advance (DPOA), Health Care Power directives of Glue Spreading Machine Operator (HCPOA) and obtained, Living Will [...] Preference short of breath, go to s jehovah's witness, visit family, Goal: cook own meals and bathe Shared: and dress without Patient/Ca assistance. regiver will progress towards goals and achieve them documented in this encounter
--- OUTSIDE RECORDS SUMMARY | 2020-03-12 09:04 | XMS REPORT | Encounter Summary ---
Author Author [facility] Organization [facility] Address Unknown Phone Unavailable Care Team Providers Care Information Security Associate Name Role Phone Ebony Sharp MD PCP Encounter Details Care Team Description [place] [address] [place] [address] [phone] 09/22/2019 Orders Only [facility] [address] [place] [address] Social History Date Tobacco Use Types Packs/Day [...]
--- OUTSIDE RECORDS SUMMARY | 2020-03-12 09:04 | XMS REPORT | Encounter Summary ---
Author Author [facility] Organization [facility] Address Unknown Phone Unavailable Care Team Providers Care It Software Engineer Name Role Phone Ebony Sharp MD PCP Reason for Visit * Auth/Cert Referred By Contact Referred To Contact Status Reason Specialty Diagnoses / Procedures Diagnoses Pyelonephritis Sepsis, due to unspecified organism, unspecified whether acute organ dysfunction present (HCC) Encounter Details Care Team Description Date Type Department Jermaine Hines MD [address] [place], [place] [id number] Bernardino Herrera RN TRANSFORMATION SPECIALIST [address] [place], [place] [id number] 09/21/2019 [address] [facility] [address] [place], [place] [id number] Anesthesia Record Responsible Anesthesiologist Anesthesia Start Time [...] [place] 09/21/19 1436 by Rae Louie RN TRANSFORMATION SPECIALIST Non-Surgic Date: 09/21/19; Time: 1406; Able to mas k 09/21/19 1406 by Bernardino lyons Airway ventilate prior to placement: Yes; Arslan lewis RN TRANSFORMATION SPECIALIST Placed By: Applied Anthropologist; Site: Oral; Size: 4; Placement Verified By: [...] Jermaine Hines MD - 09/21/2019 3:41 PM [facility] Anesthesia Post Evaluation Procedure(s):CYSTOSCOPY, LEFT RETROGRADE PYELOGRAM, [...] SpO2 94 % filed at 09/21/2019 1530 [facility] * Anesthesia Preprocedure Evaluation - Jermaine Hines MD - 09/21/2019 1:50 PM [facility] Anesthesia Evaluation Patient summary reviewed No history [...] include: supraglottic airway device Plan discussed with TRANSFORMATION SPECIALIST. Anesthetic plan and risks discussed with patient. Recovery plan: PACU PONV Risk: low [facility] documented in this encounter Plan of Treatment Not on filedocumented as of this encounter Visit Diagnoses Not on filedocumented in this encounter Administered Medications Action Date Dose Rate Site Medication Order MAR Action 09/21/2019 2:11 PM [facility] 50 mg lidocaine (pf) (XYLOCAINE-MPF) 10 mg/mL Given (1 %) injection Intravenous, As needed, Starting Ju 09/21/19 at 1411, Anesthesia Intra-op 50 mg Given 09/21/2019 2:06 PM [facility] 09/21/2019 2:28 PM [facility] 4 mg ondansetron (ZOFRAN) injection Given Intravenous, As needed, Starting Ju 09/21/19 at 1428, Anesthesia Intra-op 09/21/2019 2:06 PM [facility] 150 mg propofol (DIPRIVAN) injection Given Intravenous, As needed, Starting Ju 09/21/19 at 1406, Anesthesia Intra-op documented in this encounter
--- OUTSIDE RECORDS SUMMARY | 2020-03-12 09:04 | XMS REPORT | Encounter Summary ---
Author Author [facility] Organization [facility] Address Unknown Phone Unavailable Care Team Providers Care Hourly Shift Manager Name Role Phone Ebony Sharp MD [...] Description [place] [address] [place] [id number] CYSTOSCOPY, LEFT URETERAL STENT REMOVAL 09/21/2019 Surgery [facility] [address] [place] [address] Social History Date Tobacco Use Types Packs/Day [...] Comments Vital Sign 115/76 09/23/2019 12:09 PM APPLICATION LEAD Blood Pressure 63 09/23/2019 12:09 PM APPLICATION LEAD Pulse 36.7 C (98.1 F) 09/23/2019 12:09 PM APPLICATION LEAD Temperature 17 09/23/2019 12:09 PM APPLICATION LEAD Respiratory Rate 98% 09/23/2019 12:09 PM APPLICATION LEAD Oxygen Saturation - - Inhaled Oxygen Concentration 102 kg (224 lb 13.9 oz) 09/23/2019 4:34 AM APPLICATION LEAD Weight 157.5 cm (5' 2") 09/17/2019 2:17 PM APPLICATION LEAD Height 41.13 09/17/2019 2:17 PM APPLICATION LEAD Body Mass Index documented in this encounter Discharge Summaries * Art Watts II, DO - 09/23/2019 1:06 PM [facility]PLICATION LEAD [facility] Summary Patient Name: Isiah Do Board Account No: [id number] Date of : 1950 Date of Admission: [...] CPAP Morbid obesity due to excess calories ([facility]) Chronic respiratory failure (HCC) Resolved Problems: Confusion Elevated LFTs Code Status: Full Code Recommended Diet: Diet-Consistent Carbohydrate (75 gm) Diet - Low Fat/Chol, 2gm Na (Simply Healthy) Activity/Restrictions: activity as tolerated Scheduled Follow Up Appointments/Studies ([facility] Providers): Future Appointments Date Time Provider Department Center 09/28/2019 3:35 PM INDEP [facility]UA XR 1 [facility] XR [facility] 09/28/2019 4:00 PM Darin Huber MD INDEP AUA CL [facility] 10/04/2019 1:45 PM [facility] [place] 10/11/2019 1:30 PM Darin Huber MD INDEP [...] 2 CAPSULES BY MOUTH THREE TIMES DAILY [id number](VIT A,C-BIOTIN) ORAL Oral, Daily hydroCHLOROthiazide 25 MG [...] biliary obstruction, if clinically warranted. READING SITE: [facility] ATTESTATION STATEMENT: The staff radiologist has personally reviewed the images and dictated, reviewed, or edited the final report. Ct Head Wo Contrast Result Date: 09/20/2019 Impression: No acute intracranial process. Mild cerebral volume loss. Mild chronic small vessel ischemic disease. The above findings are in general agreement with those in the preliminary report provided by [email or web address]. READING SITE: [facility]. ATTESTATION STATEMENT: The Staff Radiologist has personally reviewed the images and dictated, reviewed, or edited the final report. Fl Retrograde Urography In Or Result Date: 09/21/2019 Fluoroscopic support for the Urology services. Please see operative report for details. READING SITE: [facility] Us Abdomen Limited Result Date: 09/20/2019 Impression: 1. Diffuse hepatic steatosis without focal hepatic lesion. 2. Cholecystectomy. ATTESTATION STATEMENT: The Staff Radiologist has personally reviewed this study and agrees with the findings in this report. READING SITE: [employer] Xr Chest 2 Views (pa And Lateral) Result Date: 09/19/2019 1. Bibasilar subsegmental atelectasis. READING SITE: [employer] Xr Chest Single View Frontal Result Date: 09/17/2019 1. No acute cardiopulmonary abnormality. 2. Low lung volumes. Mild atelectasis. READING SITE: [facility] Cardiac Studies during this encounter: No results found. Additional Studies: None Procedures: None 30 minutes were spent in the discharge of this patient performing the physical e xam, writing the discharge orders, and reviewing the patient's discharge plan of care and follow up information as noted above as well as other information as d ocumented in this summary note. Art Watts II, DO [facility] Medicine Division . ICATION LEAD documented in this encounter Medications at Time [...] A/vit Take by mouth 0 C/biotin/zinc/copper daily. 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 No s/s of acute exacerbation On O2 as needed DISTRICT [employer] SUPERINTENDENT Reports that she was on a Prednisone taper DISTRICT [employer] SUPERINTENDENT which she completed 09/22 Continue Breo and [...] up Morbid obesity due to excess calories ([facility]) Body mass index is 40.65 kg/m. Complicates all aspects of care Counseled on lifestyle modifications and risk reduction strategies See my orders for additional details regarding this patients treatment plan. Room: [address] [place] [address] Diet: Diet-Consistent Carbohydrate (75 gm) Code Status: [...] prochlorperazine OR prochlor perazine Abdirizak Garcia NP [facility] Medicine Division . ICATION LEAD * Arabella Irwin RN ANP - 09/22/2019 8:34 AM APPLICATION LEAD [facility] Urology Progress Note Subjective: Interval History: [...] Active Problems: COPD (chronic obstructive pulmonary disease) ([facility]) Type 2 diabetes mellitus with hyperglycemia, with long-term current use of ins ulin ([facility]) Essential hypertension SASHA on CPAP Morbid obesity due to excess calories ([facility]) Generalized abdominal pain Suspected UTI Chronic respiratory failure ([facility]) Confusion Elevated LFTs LOS: 5 days [...] tomorrow due to transportation. Will defer to [facility]. Appreciate their assistance. We will sign off on care. Electronically signed by Arabella Irwin 09/22/2019 8:34 AM ICATION LEAD Associated attestation - Omar Kidd MD - 09/22/2019 9:57 AM APPLICATION LEAD I personally saw and examined the patient. I agree with Arabella Irwin NP's f indings, assessment and plan as documented in the note below. Feeling well today. Worried about going home tonight, due to lack of ride. Ok to discharge from standpoint. Script for norco sent to pharmacy. Omar Kidd * Abdirizak Garcia NP - 09/21/2019 10:38 AM APPLICATION LEAD [facility] Hospital[facility] - Progress Note Patient Name: Isiah Do Board Account No: [id number] Date of : 1950 Date of Admission: [...] long-term current use of insul in ([facility]) Last A1c 11.0 in May 2019 Only on Lantus 20 Units DISTRICT [employer] SU[employer]ENT BG trends 200-300s Continue Lantus to 25 [...] Monitor trends COPD (chronic obstructive pulmonary disease) ([facility]) Stable. No s/s of acute exacerbation On O2 as needed DISTRICT [employer] SUPERINTENDENT Reports that she was on a Prednisone taper [employer] SUPERINTENDENT and had 4 more days of 20mg [...] [place] Morbid obesity due to excess calories ([facility]) Body mass index is 40.65 kg/m. Complicates all aspects of care Counseled on lifestyle modifications and risk reduction strategies See my orders for additional details regarding this patients treatment plan. Room: [facility] MAIN OR POOL ROOMS/N* Diet: Diet NPO Code Status: Full Code VTE Prevention: Appropriate VTE orders and/or documentation has been completed for this patient. [place] Catheter: N/A Scheduled Meds: [OCT Hold] amitriptyline 25 mg Oral Nightly [OCT Hold] atorvastatin 40 mg Oral Nightly [OCT Hold] cefTRIAXone 2 g Intravenous Daily [Oct] citalopram 20 mg Oral Daily [Oct] fluticasone furoate-vilanterol 1 puff Inhalation Daily [Oct] gabapentin 600 mg Oral TID [Oct] hydroCHLOROthiazide 25 mg Oral Daily [Oct] insulin glargine 25 Units Subcutaneous Nightly [Oct] insulin lispro 3-18 Units Subcutaneous 4 times daily before meal s and nightly [Oct] metoprolol tartrate 100 mg Oral BID [OCT Hold] predniSONE 20 mg Oral Daily [Oct] tolterodine 2 mg Oral BID Continuous Infusions: lactated Ringers 50 mL/hr (09/21/19 1352) PRN Meds: [OCT Hold] bisacodyL, [OCT Hold] cyclobenzaprine, [OCT Hold] dextrose 50% OR [Oct] dextrose 10%, [Oct] docusate sodium, [Oct] glucagon OR [Oct] glucagon, [OCT Hold] glucose, [OCT Hold] hyoscyamine, [OCT Hold] ipr atropium-albuterol, [OCT Hold] magnesium sulfate, [OCT Hold] melatonin, [OCT Hol d] morphine, [OCT Hold] oxyCODONE-acetaminophen, [OCT Hold] phenazopyridine, [ R Hold] polyethylene glycol, [OCT Hold] potassium chloride OR [OCT Hold] pot assium bicarb-citric acid OR [OCT Hold] potassium chloride in water, [Oct ld] prochlorperazine OR [OCT Hold] prochlorperazine OR [OCT Hold] prochl orperazine Abdirizak Garcia NP [facility] Medicine Division . ICATION LEAD * Arabella Irwin RN ANP - 09/21/2019 9:02 AM APPLICATION LEAD [facility] Urology Progress Note Subjective: Interval History: [...] the last 7 days Lab Units 09/21/19 03409/20/1921809/19/19 1653 WBC TH/uL 10.19 9.32 10.54 HEMOGLOBIN [...] Active Problems: COPD (chronic obstructive pulmonary disease) ([facility]) Type 2 diabetes mellitus with hyperglycemia, with long-term current use of ins ulin ([facility]) Essential hypertension SASHA on CPAP Morbid obesity due to excess calories ([facility]) Generalized abdominal pain Suspected UTI Chronic respiratory failure (HCC) Confusion Elevated LFTs LOS: 4 days 1. Left mid ureteral calculus - s/p cystoscopy and left ureteral stent placement with Dr. Araogn on 08/30/2019 - Maintain NPO status - [...] signed by Arabella Irwin 09/21/2019 9:02 AM ICATION LEAD Associated attestation - Janet Aragno MD - 09/21/2019 2:40 PM APPLICATION LEAD Pt seen, discussed procedure with her, she v/u and wishes to proceed. * Arabella Irwin RN ANP - 09/20/2019 9:01 AM APPLICATION LEAD [facility] Urology Progress Note Subjective: Interval History: [...] Active Problems: COPD (chronic obstructive pulmonary disease) ([facility]) Type 2 diabetes mellitus with hyperglycemia, with long-term current use of ins ulin (HCC) Essential hypertension SASHA on CPAP Morbid obesity due to excess calories (HCC) Generalized abdominal pain Suspected UTI Chronic respiratory failure ([facility]) LOS: 3 days 1. Left mid [...] signed by Arabella Irwin 09/20/2019 9:01 AM ICATION LEAD * Hope Cox, AUTO REPAIR TECHNICIAN - 09/20/2019 8:55 AM APPLICATION LEAD [facility] Hospitalist - Progress Note Patient Name: Isiah Do Board Account No: [id number] Date of : 1950 Date of Admission: [...] performing provider), ECG, telemetry, current inpatient medications, system consultant notes and fire support specialist notes with pertainent findings noted [...] long-term current use of insul in ([facility]) Last A1c 11.0 in May 2019 Only on Lantus 20 Units [employer]ENT BG trends 200-300s Continue Lantus to 25 units nightly Monitor BG ac&hs SSI to level 5 Hypoglycemia protocol, CC diet COPD (chronic obstructive pulmonary disease) (HCC) Stable. No s/s of acute exacerbation On O2 as needed [employer] SU[employer]ENDENT Reports that she was on a Prednisone taper [employer] SUPER[employer]ENDENT and had 4 more days of 20mg [...] details regarding this patients treatment plan. Room: [address] [place] [address] Diet: Diet-Consistent Carbohydrate (75 gm) Code Status: [...] prochlorperazine OR prochlor perazine Hope Cox APRN [facility] Medicine Division . ICATION LEAD * Hope Cox APRN - 09/19/2019 12:08 PM APPLICATION LEAD [facility] Hospitalist - Progress Note Patient Name: Isiah Do Board Account No: [id number] Date of : 1950 Date of Admission: [...] re results (as indicated), current inpatient medications, system consultant notes and s upport staff notes [...] long-term current use of insul in ([facility]) Last A1c 11.0 in May 2019 BG trends 200-300s Increase Lantus to 25 units nightly Monitor BG ac&hs Increase SSI to level 4 Hypoglycemia protocol, CC diet COPD (chronic obstructive pulmonary disease) ([facility]) Stable. No s/s of acute exacerbation On O2 as needed [employer] SUPERINTENDENT Reports that she was on a Prednisone taper [employer] SUPER[employer]ENDENT and had 4 more days of 20mg Continue Breo and Duonebs per home regimen Titrate O2 to maintain goal O2 sat >90% Resume Prednisone 20mg daily x4 days Chronic respiratory failure (HCC) On chronic O2 prn Monitor Titrate O2 as needed for goal sat >90% Morbid obesity due to excess calories ([facility]) Complicates all aspects of care Strongly recommend dietary changes, lifestyle changes and weight loss See my orders for additional details regarding this patients treatment plan. Room: [address] [place] [address] Diet: Diet-Consistent Carbohydrate (75 gm) Code Status: [...] prochlorperazine OR prochlor perazine Hope Cox APRN [facility] Medicine Division . ICATION LEAD * Arabella Irwin RN ANP - 09/19/2019 9:41 AM APPLICATION LEAD [facility] Urology Progress Note Subjective: Interval History: [...] Active Problems: COPD (chronic obstructive pulmonary disease) ([facility]) Type 2 diabetes mellitus with hyperglycemia, with long-term current use of ins ulin ([facility]) Essential hypertension SASHA on CPAP Morbid obesity due to excess calories ([facility]) Generalized abdominal pain Suspected UTI Chronic respiratory failure ([facility]) LOS: 2 days 1. Left mid [...] signed by Arabella Irwin 09/19/2019 9:41 AM ICATION LEAD * Hope Cox APRN - 09/18/2019 11:24 AM APPLICATION LEAD [facility] Hospitalist - Progress Note Patient Name: Isiah Do Board Account No: [id number] Date of : 1950 Date of Admission: [...] the performing provider), ECG, current inpatient medications, system consultant notes, supp ort staff notes, prior [...] long-term current use of insul in ([facility]) Last A1c 11.0 in May 2019 BG trends 200s Increase Lantus to 22 Units nightly Monitor BG ac&hs SSI level 2 Hypoglycemia protocol, CC diet COPD (chronic obstructive pulmonary disease) (HCC) Stable. No s/s of acute exacerbation On O2 as needed [employer] SUPERINTENDENT Continue Breo and Duonebs per home regimen [...] details regarding this patients treatment plan. Room: [facility] [place] [address] Diet: Diet-Consistent Carbohydrate (75 gm) Code Status: [...] prochlorperazine OR prochlor perazine Hope Cox APRN [facility] Medicine Division . ICATION LEAD documented in this encounter H&P Notes * Lashae Crenshaw MD - 09/17/2019 12:49 PM APPLICATION LEAD [facility] Hospitalist - History & Physical Patient Name: Isiah Benítez Account No: [id number] Date of : 1950 Date of Admission: [...] STENT PLACEMENT; Surgeon: Darin Huber MD; Location: [facility] Main OR; Service: Urology; Laterality: Left; CYSTOSCOPY, RETROGRADE PYELOGRAM, URETEROSCOPY, LASERLITHOTRIPSY, WITH URETE RAL STENT PLACEMENT Left 08/02/2019 Procedure: CYSTOSCOPY, LEFT RETROGRADE PYELOGRAM, LEFT URETEROSCOPY, LASER LITH OTRIPSY, LEFT URETERAL STENT EXCHANGE; Surgeon: Darin Huber MD; Location: [facility] Main OR; Service: Urology; Laterality: Left; CYSTOSCOPY, RETROGRADE PYELOGRAM, W/URETERAL STENT PLACEMENT Left 08/30/2019 Procedure: CYSTOSCOPY, LEFT RETROGRADE PYELOGRAM, AND LEFT URETERAL STENT INSER TION; Surgeon: Janet Aragon MD; Location: [facility] Main OR; Service: Urolo gy; Laterality: Left; HAND SURGERY Left 03/09/2019 [facility] REPAIR HYSTERECTOMY OOPHORECTOMY REMOVAL, HARDWARE, FOOT OR ANKLE Left 04/09/2017 Procedure: LEFT ANKLE REMOVAL OF HARDWARE WITH REVISION LEFT ANKLE ARTHRODESIS; Surgeon: Adelaida Olivas MD; Location: [facility] Main OR; Service: Orthopedics; Later ality: Left; REPAIR, INCISIONAL HERNIA, LAPAROSCOPIC, USING MESH N/A 05/25/2018 Procedure: LAPAROSCOPIC INCISIONAL HERNIA REPAIR WITH MESH; Surgeon: Medardo Tate MD; Location: [facility] Main OR; Service: General; Laterality: N/A; TONSILLECTOMY [...] joann es a day. vit A/vit C/biotin/zinc/copper ([id number],VIT A,C-BIOTIN, ORAL) Take by tanna th daily. [...] the performing provider), ECG, current inpatient medications, fire support specialist notes, p rior admission/outpatient notes and prior to admission medications with pertaine nt findings noted within the assessment/plan. I have personally reviewed the pat berry's past medical, surgical, family, or social history [...] long-term current use of insul in ([facility]) Continued home Lantus 20. Ordered SSI #2 with ACHS Accu-Cheks. COPD (chronic obstructive pulmonary disease) ([facility]) Not in acute exacerbation. Continued home inhalers. Continuous pulse ox Oxygen supplementation as needed. Morbid obesity due to excess calories ([facility]) Complicates all aspects of care. In [...] t as noted above. Lashae Crenshaw MD [facility] Medicine Division . ICATION LEAD documented in this encounter Consult Notes * Hilario Diego MD - 09/21/2019 5:28 PM APPLICATION LEAD Associated Order(s): IP CONSULT TO ENDOCRINOLOGY Endocrinology Consult Note NAME: Isiah Benítez AGE: 69 y.o. : 1950 DATE OF ADMISSION: 09/17/2019 PCP: Ebony Sharp MD ATTENDING PHYSICIAN: Physician Paradiseist DATE OF CONSULT: 09/21/2019 REASON FOR CONSULT: [...] to have acute recurrent ureteral stone. Ena chirag just came back from surgery for [...] ankle. COPD (chronic obstructive pulmonary disease) ([facility]) Depression Draining postoperative wound 08/08/2016 Endometriosis [...] STENT EXCHANGE; Surgeon: Darin Huber MD; Location: [facility] Main OR; Service: Urology; Laterality: Left; CYSTOSCOPY, RETROGRADE PYELOGRAM, W/URETERAL STENT PLACEMENT Left 08/30/2019 Procedure: CYSTOSCOPY, LEFT RETROGRADE PYELOGRAM, AND LEFT URETERAL STENT INSER TION; Surgeon: Janet Aragon MD; Location: [facility] Main OR; Service: Urolo gy; Laterality: Left; HAND SURGERY Left 03/09/2019 CTR HERNIA REPAIR HYSTERECTOMY OOPHORECTOMY REMOVAL, HARDWARE, FOOT OR ANKLE Left 04/09/2017 Procedure: LEFT ANKLE REMOVAL OF HARDWARE WITH REVISION LEFT ANKLE ARTHRODESIS; Surgeon: Adelaida Olivas MD; Location: [facility] Main OR; Service: Orthopedics; Later ality: Left; REPAIR, INCISIONAL HERNIA, LAPAROSCOPIC, USING MESH N/A 05/25/2018 Procedure: LAPAROSCOPIC INCISIONAL HERNIA REPAIR WITH MESH; Surgeon: Medardo Tate MD; Location: [facility] Main OR; Service: General; Laterality: N/A; TONSILLECTOMY [...] Unknown at Unknown time vit A/vit C/biotin/zinc/copper ([id number],VIT A,C-BIOTIN, ORAL) Take by mouth daily. 09/16/2019 [...] on phone: None Gets together: None Attends roman catholic service: None Active member of club or [...] is here. Hilario Diego 09/21/2019 5:28 PM ICATION LEAD * Theresa Mata RN - 09/20/2019 3:22 PM APPLICATION LEAD Inpatient Diabetes Education Note Diabetes Education provided [...] high?: Diet Education provided: Diabetes Education Materials: [facility] "Diabetes Survival Skills" Guide(Insulin info rmation sheet, Hypo and Hyperglycemia sheets, [facility] Diabetes Managament and Educa tion brochure, and [...] rotation, Lantus and Humalog. 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 Unable to work due to COPD. Demonstrated use of One Touch Verio meter and will need RX for strips and Lancets. Level of service: 30 minutes Recommendations: Recommend OP DM Education or may need Home Health Education for Diabetes Please refer to [facility] directory for Passenger Barge Master's phone number. Lewis Mata RN, CDE ICATION LEAD * Fiorella Boyd RN - 09/19/2019 12:31 PM APPLICATION LEAD Associated Order(s): CONSULT TO CARE PROGRESSION Advance [...] s or concerns. Isabel Boyd RN, BSN Infant Room Teacher [phone] ICATION LEAD * Arabella Irwin RN ANP - 09/18/2019 8:26 AM APPLICATION LEAD Associated Order(s): IP CONSULT TO UROLOGY [facility] UROLOGY CONSULT NOTE Patient: Isiah Benítez [...] end of urination. Labs reviewed. WBC 12.83K. Mine Development Engineer 1.0. UA (+) for trace protein, >40 [...] 08/08/2016 Allergic rhinitis Anxiety Bronchitis, chronic ([facility]) Cataract 2011, 2012 bilat cateract surgery Chronic pain disorder back, ribs, and ankle. COPD (chronic obstructive pulmonary disease) ([facility]) Depression Draining postoperative wound 08/08/2016 Endometriosis Essential hypertension Fractures [address] in Left ankle MATA (generalized anxiety disorder) 09/24/2015 Hernia of abdominal cavity Kidney stone Mixed hyperlipidemia 09/24/2015 Morbid obesity due to excess calories ([facility]) 07/10/2016 On home oxygen therapy 2L - usually needs if has an exerbation of COPD, or resp illness SASHA on CPAP Osteoarthritis Refusal of blood transfusions as patient is Yazidism Sleep apnea CPAP use Type 2 diabetes mellitus with hyperglycemia, with long-term current use of i nsulin ([facility]) 06/29/2016 Urinary calculi Urinary incontinence Urinary [...] STENT PLACEMENT; Surgeon: Darin Huber MD; Location: [facility] Main OR; Service: Urology; Laterality: Left; CYSTOSCOPY, RETROGRADE PYELOGRAM, URETEROSCOPY, LASERLITHOTRIPSY, WITH URETE RAL STENT PLACEMENT Left 08/02/2019 Procedure: CYSTOSCOPY, LEFT RETROGRADE PYELOGRAM, LEFT URETEROSCOPY, LASER LITH OTRIPSY, LEFT URETERAL STENT EXCHANGE; Surgeon: Darin Huber MD; Location: [facility] Main OR; Service: Urology; Laterality: Left; CYSTOSCOPY, RETROGRADE PYELOGRAM, W/URETERAL STENT PLACEMENT Left 08/30/2019 Procedure: CYSTOSCOPY, LEFT RETROGRADE PYELOGRAM, AND LEFT URETERAL STENT INSER TION; Surgeon: Janet Aragon MD; Location: [facility] Main OR; Service: Urolo gy; Laterality: Left; [...] Unknown at Unknown time vit A/vit C/biotin/zinc/copper ([id number],VIT A,C-BIOTIN, ORAL) Take by mouth daily. 09/16/2019 [...] injection 2.5-5 mg 2.5-5 mg Intravenous Q4H [place] N Lashae Crenshaw MD 5 mg at [...] file Gets together: Not on file Attends roman catholic service: Not on file Active member of [...] 10:05 AM Positive (A) Negative Final Specific [place], UA Date/Time Value Ref Range Status 09/17/2019 [...] biliary obstruction, if clinically warranted. READING SITE: [facility] ATTESTATION STATEMENT: The staff radiologist has personally reviewed the images and dictated, reviewed, or edited the final report. Xr Chest Single View Frontal Result Date: 09/17/2019 1. No acute cardiopulmonary abnormality. 2. Low lung volumes. Mild atelectasis. READING SITE: [facility] ASSESSMENT/PLAN: 1. Left mid ureteral calculus - [...] Erika morales. We will continue to follow. ICATION LEAD Associated attestation - Antonio Duque MD - 09/19/2019 10:59 AM APPLICATION LEAD I personally saw and examined the patient. I agree with Arabella Irwin NP's f indings, assessment and plan as documented in the note below. Patient is feeling much better. She does report subjective low-grade fever. De nies any nausea or vomiting. She is tolerating regular diet and is ambulatory w [facility] assistance. She is quite eager and determined to have treatment of her stone while in-house. We will need to obtain a final urine culture to ensure she is on appropriate a ntibiotics. She may be a candidate for ureteroscopy with laser lithotripsy and stent exchange later this week. Antonio Duque * Jaylyn Batres RN - 09/17/2019 1:00 PM APPLICATION LEAD Associated Order(s): CONSULT - VASCULAR ACCESS TEAM Consulted for IV access. Patient had 2 previous IV's infiltrate. This RN placed a 20g 2.25" Accucath to the right AC, brisk blood aspirate, flushed. Rae MEDINA upd ated. ICATION LEAD documented in this encounter Nursing Notes * Sunny Boyer, ADAM - 09/19/2019 11:27 PM APPLICATION LEAD 09/19/19 2391 Goals for Shift Pt/Family Goal for Shift pain control Nursing Goals for the Shift pain control Plan/Interventions to meet Goal PRN pain meds, repositioning ICATION LEAD documented in this encounter ED Notes * Rae Reyes RN - 09/17/2019 1:04 PM APPLICATION LEAD 800ml NS left to go and restarted second bag of NS since Vascular Access establi shed right ac IV. Lab completed second set of cultures. Ordered diabetic tray fo r patient. C/o 8/10 upper abdominal pain. ICATION LEAD * Barby Olivo RN - 09/17/2019 12:40 PM APPLICATION LEAD PICC team at bedside ICATION LEAD * Rae Reyes RN - 09/17/2019 11:[address] Funes states patient will likely need to be admitted. Notified Rachel of n eed for additional ultrasound guided IV placement. ICATION LEAD * Rae Reyes RN - 09/17/2019 10:55 AM APPLICATION LEAD Notified Dr. Funes of right arm ultrasound IV infiltrating after 200ml infused o f second bag of fluids. ICATION LEAD * Rae Reyes RN - 09/17/2019 10:54 AM APPLICATION LEAD Daughter called to obtain update. Update provided within HIPPA limits. Notified daughter that I will instruct patient to call her with any updates. ICATION LEAD * Rae Reyes RN - 09/17/2019 10:06 AM APPLICATION LEAD Up to brp with standby assist. Patient using hat to attempt to obtain UA. ICATION LEAD * Rae Reyes RN - 09/17/2019 8:29 AM APPLICATION LEAD adelfo Prabhakar did not see any viable options for placing IV. Rachel, ultrasound guided trained IV, assessing at bedside for IV access. ICATION LEAD * Rae Reyes RN - 09/17/2019 8:20 AM APPLICATION LEAD Discussed with Vanna Fair if can assess for IV placement since unsuccessful x2 . Vanna assessing for IV access site now. ICATION LEAD * Luciano Funes MD - 09/17/2019 7:57 AM APPLICATION LEAD 09/17/2019 [facility] History Chief Complaint Patient presents [...] STENT PLACEMENT; Surgeon: Darin Huber MD; Location: [facility] Main OR; Service: Urology; Laterality: Left; CYSTOSCOPY, RETROGRADE PYELOGRAM, URETEROSCOPY, LASERLITHOTRIPSY, WITH URETE RAL STENT PLACEMENT Left 08/02/2019 Procedure: CYSTOSCOPY, LEFT RETROGRADE PYELOGRAM, LEFT URETEROSCOPY, LASER LITH OTRIPSY, LEFT URETERAL STENT EXCHANGE; Surgeon: Darin Huber MD; Location: [facility] Main OR; Service: Urology; Laterality: Left; CYSTOSCOPY, RETROGRADE PYELOGRAM, W/URETERAL STENT PLACEMENT Left 08/30/2019 Procedure: CYSTOSCOPY, LEFT RETROGRADE PYELOGRAM, AND LEFT URETERAL STENT INSER TION; Surgeon: Janet Aragon MD; Location: [facility] Main OR; Service: Urolo gy; Laterality: Left; HAND SURGERY Left 03/09/2019 [facility] REPAIR HYSTERECTOMY OOPHORECTOMY REMOVAL, HARDWARE, FOOT OR ANKLE Left 04/09/2017 Procedure: LEFT ANKLE REMOVAL OF HARDWARE WITH REVISION LEFT ANKLE ARTHRODESIS; Surgeon: Adelaida Olivas MD; Location: [facility] Main OR; Service: Orthopedics; Later ality: Left; REPAIR, INCISIONAL HERNIA, LAPAROSCOPIC, USING MESH N/A 05/25/2018 Procedure: LAPAROSCOPIC INCISIONAL HERNIA REPAIR WITH MESH; Surgeon: Medardo Tate MD; Location: [facility] Main OR; Service: General; Laterality: N/A; TONSILLECTOMY [...] ISIAH BENÍTEZ Sex#: Paulina #: [id number] Jose#: [id number] Location: [facility] SED-11 Rashaad harris Requested: [id number] CT ABDOMEN PELVIS W CONTRAST Reason for [...] obs truction, if clinically warranted. READING SITE: [facility] TATEMENT: The staff radiologist has personally reviewed the images and dictated, reviewed, or edited the final report. Xr Chest Single View Frontal Result Date: 09/17/2019 Patient: ISIAH BENÍTEZ Sex#: F #: [id number] Jose#: [id number] Location: SED-11 Rashaad harris Requested: [id number] XR CHEST SINGLE VIEW FRONTAL Reason for [...] lung volumes. Mild atelectasis . READING SITE: [facility] Results for orders placed or performed during [...] Negative Ketones Urine Negative Negative mg/dL Specific [place], UA >=1.030 1.001 - 1.030 Hemoglobin Urine [...] Disposition Admit Luciano Funes MD 09/17/19 1217 ICATION LEAD * Barby Olivo RN - 09/17/2019 7:42 AM APPLICATION LEAD Bed: [facility] Expected date: Expected time: Means of arrival: Comments: [facility] ICATION LEAD documented in this encounter Miscellaneous Notes * Care Progression Final DC Note - Tiny Reyna RN - 09/23/2019 3:23 PM APPLICATION LEAD Final Discharge Note Final Discharge Disposition: 06-Home Under Care of Organized Home Health Service Organization Discharge goal and plan is mutually agreed upon by patient. Patient will discharge to: Home with home health resumption Transportation: Family Discharge Time: Unknown Special Instructions: Noticed that patient has discharge orders and a plan to re sume home health. Spoke with Floresita Vargas with [facility] who can resume home health, but will need resumption orders. Contacted Dr. Watts via [facility] who gave verbal to resume home health. Sent orde rs to [facility]. Patient had already discharged. Was unable to present IMM letter. Tiny Reyna RN, BSN, Infant Room Teacher [phone] s ICATION LEAD * Nutrition Note - Glenys Carlos RD LD - 09/23/2019 10:13 AM APPLICATION LEAD Nutrition Length of Stay [facility] Patient: Isiah Benítez Age: 69 y.o. [...] signed by Glenys Carlos 09/23/2019 10:13 AM ICATION LEAD * End of Shift Note - Susan Brock RN - 09/23/2019 4:59 AM APPLICATION LEAD End of Shift Summary and Plan of [...] mobility Plan: PRN pain medication, stand by Jade siegel Goals/Plan for Hospital Stay Patient/Family stated goal for hospital stay: to pass kidney stone Nursing goal for hospital stay: patient to pass kidney stone Plan: strain all urine, pain meds as needed ICATION LEAD * End of Shift Note - Annie Melchor RN - 09/22/2019 5:20 PM APPLICATION LEAD End of Shift Summary and Plan of [...] strain all urine, pain meds as needed ICATION LEAD * Nutrition Note - Letty Andrea RD LD CNSD - 09/22/2019 4:38 PM APPLICATION LEAD Nutrition Education [facility] Patient: Isiah Benítez Age: 69 y.o. [...] signed by Letty Andrea 09/22/2019 4:38 PM ICATION LEAD * End of Shift Note - Arabella Mccormick RN - 09/21/2019 6:44 PM APPLICATION LEAD End of Shift Summary and Plan of [...] strain all urine, pain meds as needed ICATION LEAD * Operative Note - Janet Aragon MD - 09/21/2019 2:42 PM APPLICATION LEAD PREOPERATIVE DIAGNOSES: Left ureteral stone. POSTOPERATIVE DIAGNOSIS: Left ureteral stone. PROCEDURE: Cystourethroscopy, left ureteral stent removal, left retrograde pyel ogram, left ureteroscopy, laser lithotripsy, basket extraction of stone and left ureteral stent placement (6-Burmese x 26 cm). SURGEON: Dr. Janet Aragon. [...] was backloaded through the scope and a 6-Burmese x 26 cm double-J stent was threaded [...] will remove her stent in 1-2 weeks. ICATION LEAD * Brief Operative Note - Janet Aragon MD - 09/21/2019 2:42 PM APPLICATION LEAD Brief Operative Note Isiah Do Board 09/21/2019 Event Time In Procedure / Incision Start 09/21/2019 1414 Pre-op Diagnosis: Left ureteral stone Post-op Diagnosis: same Procedure: CYSTOSCOPY, LEFT RETROGRADE PYELOGRAM, LEFT URETEROSCOPY, LASER LITHOTRIPSY, LEF T URETERAL STENT PLACEMENT, Left - Ureter Surgeon(s) and Role: * Janet Aragon MD - Primary Anesthesia Type: General Staff: Shank Skinner: Janna Pascal RN; Juventino Patel RN Lamination Operator: Jermaine Alcazar Scrub Person: Alex Arredondo Float: Koko Thomas RN; Koko Rodas RN; Lori Mancia CNA Anesthesiologist: Jermaine Hines MD CLAIM BENEFIT SPECIALIST: Bernardino Herrera RN CLAIM BENEFIT SPECIALIST; Rae Louie RN CLAIM BENEFIT SPECIALIST Findings: See dictation Estimated Blood Loss: 0 mL Specimens: . ID Source Type Tests Collected By Collected At A Left Ureter Stone STONE ANALYSIS Janet Aragon MD 09/21/19 1433 Description: left ureter stone Comment: Pre-op diagnosis: N20.1 Implants: Implant Name Type Inv. Item Serial No. Architectural Representative Lot No. LRB No. Used Action IMPLANT STENT URETERAL CONTOUR 6FR X 26CM W/O [employer] [id number] - SNA Non-Tissue Implant IMPLANT STENT URETERAL CONTOUR 6FR X 26CM W/O [employer] [id number] NA [employer] [id number] Left 1 Implanted Complications: None Janet Aragon Date: 09/21/2019 Time: 2:42 PM ICATION LEAD * End of Shift Note - Lauryn Ricardo RN - 09/21/2019 6:07 AM APPLICATION LEAD End of Shift Summary and Plan of [...] strain all urine, pain meds as needed ICATION LEAD * End of Shift Note - Arabella Mccormick RN - 09/20/2019 5:22 PM APPLICATION LEAD End of Shift Summary and Plan of [...] strain all urine, pain meds as needed ICATION LEAD * Assessment & Plan Note - Abdirizak Garcia NP - 09/20/2019 10:08 AM APPLICATION LEAD Associated Problem(s): Elevated LFTs (Resolved 09/23/2019) Mild Likely 2/2 fatty liver and acute infection RUQ US without acuity, hepatic steatosis ICATION LEAD * Assessment & Plan Note - Abdirizak Garcia NP - 09/20/2019 10:05 AM APPLICATION LEAD Associated Problem(s): Confusion (Resolved 09/23/2019) Resolved ICATION LEAD * Assessment & Plan Note - Art Watts II, DO - 09/20/2019 10:03 AM APPLICATION LEAD Associated Problem(s): Morbid obesity due to excess calories (HCC) Complicates all aspects of care Counseled on lifestyle modifications and risk reduction strategies ICATION LEAD * Assessment & Plan Note - Art Watts II, DO - 09/20/2019 10:03 AM APPLICATION LEAD Associated Problem(s): Chronic respiratory failure (HCC) Pulmonary hygiene Continue home COPD regimen ICATION LEAD * Assessment & Plan Note - Art Watts II, DO - 09/20/2019 10:03 AM APPLICATION LEAD Associated Problem(s): Type 2 diabetes mellitus with hyperglycemia, with long-te rm current use of insulin (HCC) Continue Lantus 25 units at bedtime Severe allergy listed to metformin Start Januvia Follow-up endocrinology as an outpatient Likely made worse by recent steroid use ICATION LEAD * Assessment & Plan Note - Art Watts II, - 09/20/2019 10:02 AM APPLICATION LEAD Associated Problem(s): SASHA on CPAP CPAP at bedtime ICATION LEAD * Assessment & Plan Note - Art Watts II, - 09/20/2019 10:01 AM APPLICATION LEAD Associated Problem(s): Essential hypertension Continue chronic home medications ICATION LEAD * Assessment & Plan Note - Art Watts II, DO - 09/20/2019 10:00 AM APPLICATION LEAD Associated Problem(s): COPD (chronic obstructive pulmonary disease) ([facility]) Breo Duonebs per home regimen ICATION LEAD * Assessment & Plan Note - Art Watts II, DO - 09/20/2019 9:59 AM APPLICATION LEAD Associated Problem(s): Suspected UTI Resolved Completed 5 days Rocephin ICATION LEAD * Assessment & Plan Note - Art Watts II, - 09/20/2019 9:58 AM APPLICATION LEAD Associated Problem(s): Generalized abdominal pain Resolved ICATION LEAD * Assessment & Plan Note - Art Watts II, DO - 09/20/2019 9:57 AM APPLICATION LEAD Associated Problem(s): Ureteral calculus, left S/P left ureteral stent placement on 08/30 without improvement, cystoscopy with st ent removal and lithotripsy 09/21 Urology recommends follow-up in 1 to 2 weeks Detrol LA pyridium ICATION LEAD * End of Shift Note - Sunny Boyer RN - 09/20/2019 5:37 AM APPLICATION LEAD End of Shift Summary and Plan of [...] strain all urine, pain meds as needed ICATION LEAD * End of Shift Note - Arabella Mccormick RN - 09/19/2019 6:06 PM APPLICATION LEAD End of Shift Summary and Plan of [...] oral temp, BP 170/90, CT delayed and MOTOR OPERATOR aware. CT called at 1800 to [...] strain all urine, pain meds as needed ICATION LEAD * Significant Event - Hope Cox APRN - 09/19/2019 3:40 PM APPLICATION LEAD [facility] Hospitalist - Significant Event Patient Name: Isiah Benítez Account No: [id number] Date of : 1950 Date of Admission: 09/17/2019 7:42 AM Ms. Isiah Benítez is a 69 y.o. female who was admitted on 09/17/2019 with Chest p ain. Principal Problem: Ureteral calculus, left Active Problems: Generalized abdominal pain Suspected UTI Confusion COPD (chronic obstructive pulmonary disease) ([facility]) Type 2 diabetes mellitus with hyperglycemia, with long-term current use of ins ulin ([facility]) Essential hypertension SASHA on CPAP Morbid obesity due to excess calories ([facility]) Chronic respiratory failure ([facility]) Elevated LFTs Received message from bedside [...] chest x-ray to be performed. Discussed with [facility] nurse practitioner and physician who will follow-up [...] results (as indicated), current inpatient medications and fire support specialist notes with pertainent findings noted within the assessment/plan. I have personally sp stephen with the patient, another physican and nursing staff regarding this patient 's case. Room: [address] [place] [address] Diet: Diet-Consistent Carbohydrate (75 gm) Code Status: Full Code Hope Cox APRN [facility] Medicine Division . ICATION LEAD * Assessment & Plan Note - Hope Cox APRN - 09/19/2019 12:17 PM APPLICATION LEAD Associated Problem(s): Morbid obesity due to excess calories (HCC) Complicates all aspects of care Strongly recommend dietary changes, lifestyle changes and weight loss ICATION LEAD * Assessment & Plan Earnest - Hope Cox APRN - 09/19/2019 12:17 PM APPLICATION LEAD Associated Problem(s): Chronic respiratory failure (HCC) On chronic O2 prn Monitor Titrate O2 as needed for goal sat >90% ICATION LEAD * Assessment & Plan Note - Hope Cox APRN - 09/19/2019 12:16 PM APPLICATION LEAD Associated Problem(s): Type 2 diabetes mellitus with hyperglycemia, with long-te rm current use of insulin (HCC) Last A1c 11.0 in May 2019 BG trends 200-300s Increase Lantus to 25 units nightly Monitor BG ac&hs Increase SSI to level 4 Hypoglycemia protocol, CC diet ICATION LEAD * Assessment & Plan Note - Hope Cox APRN - 09/19/2019 12:16 PM APPLICATION LEAD Associated Problem(s): SAHSA on CPAP Compliant with CPAP at home Continue home CPAP regimen ICATION LEAD * Assessment & Plan Note - Hope Cox APRN - 09/19/2019 12:15 PM APPLICATION LEAD Associated Problem(s): Essential hypertension Systolic (24hrs), Av , Min:129 , Max:145 Continue Metoprolol Resume home dose HCTZ daily Monitor trends ICATION LEAD * Assessment & Plan Note - Hope Cox APRN - 09/19/2019 12:13 PM APPLICATION LEAD Associated Problem(s): COPD (chronic obstructive pulmonary disease) (HCC) Stable. 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 09/17 UA with +LEUs and WBCs >40, no bacteria; UCx with mixed ciera Continue IV Ceftriaxone for now Repeat UA reflex ICATION LEAD * Assessment & Plan Note - Hope Cox APRN - 09/19/2019 12:11 PM APPLICATION LEAD Associated Problem(s): Generalized abdominal pain Patient reports generalized abdominal pain but this is worse in the left lower q uadrant. CT abdomen showed left-sided ureteral calculus. S/p ureteral stent on 08/30 See above plan for ureteral calculus Pain control with PO Percocet and IV Morphine ICATION LEAD * Assessment & Plan Note - Hope Cox APRN - 09/19/2019 12:11 PM APPLICATION LEAD Associated Problem(s): Ureteral calculus, left CT abdomen showed left ureteral stent and calculus. S/p left ureteral stent placement on 08/30 Urology following, appreciate assist Continue tolterodine Continue PRN PO Percocet and IV Morphine PRN Levsin and Pyridium Plans for possible ureteroscopy with laser lithotripsy and stent exchange ICATION LEAD * End of Shift Note - Lizzie Hickey RN - 09/19/2019 2:24 AM APPLICATION LEAD End of Shift Summary and Plan of [...] strain all urine, pain meds as needed ICATION LEAD * End of Shift Note - Tania Moscoso RN - 09/18/2019 5:14 PM APPLICATION LEAD End of Shift Summary and Plan of [...] Fall prevention interventions and safe environment main kaylenned, see the Daily Cares/Safety flowsheet for documentation. [...] strain all urine, pain meds as needed ICATION LEAD * Care Progression Initial Assessment - Fiorella Diana RN - 09/18/2019 5:00 PM APPLICATION LEAD Care Progression Initial Assessment Note Additional information: patient readmission from 09/07/2019. Assessment unchanged from last admit. PCP, pharmacy, insurance, demographics verified as unchanged. Patient is current with [facility]. She has the support of her daughter whom she live s with currently. Denies any needs at home. Would like to resume home care servi sudeep with [facility]. Referral sent. CC will continue to follow for discharge planning. Referral to see patient was placed by Referral Source: Care Progression Referral Name: Fiorella MALIK RN Infant Room Teacher, Referral Reason: Initial As sessment, Discharge [...] has Payor: MEDICARE REPLACEMENT PLAN / Plan: [employer] MEDICARE / Product T ype: *No Product type* / Legal Information: Patient has advance directive, copy not in chart Type of Healthcare Directive: Durable power of city attorney for health care Copy requested from [...] MD and abhilash ves their medications from [id number] - [place], [place] - [address] [facility] [phone] [place] [phone] ICATION LEAD * Assessment & Plan Note - Hope Cox APRN - 09/18/2019 1:34 PM APPLICATION LEAD Associated Problem(s): Chronic respiratory failure (HCC) On chronic O2 prn Monitor Titrate O2 as needed for goal sat >90% ICATION LEAD * End of Shift Note - Lizzie Hickey RN - 09/18/2019 5:11 AM APPLICATION LEAD End of Shift Summary and Plan of [...] strain all urine, pain meds as needed ICATION LEAD * End of Shift Note - Jaclyn Boston RN - 09/17/2019 5:58 PM APPLICATION LEAD End of Shift Summary and Plan of [...] strain all urine, pain meds as needed ICATION LEAD * Assessment & Plan Note - Hope Cox APRN - 09/17/2019 12:48 PM APPLICATION LEAD Associated Problem(s): Suspected UTI Patient was recently treated for a [place] UTI. UA with +LEUs and WBCs >40, no bacteria Continue IV Ceftriaxone for now Follow blood and urine cultures ICATION LEAD * Assessment & Plan Note - Hope Cox APRN - 09/17/2019 12:47 PM APPLICATION LEAD Associated Problem(s): Ureteral calculus, left CT abdomen showed left ureteral stent and calculus. S/p left ureteral stent placement on 08/30 Urology following, appreciate assist Continue tolterodine DC IV fentanyl Add Percocet 1-2 tabs Q6 PRN IV Morphine Q4 for breakthrough pain PRN Levsin and Pyridium ICATION LEAD * Assessment & Plan Note - Hope Cox APRN - 09/17/2019 12:46 PM APPLICATION LEAD Associated Problem(s): Type 2 diabetes mellitus with hyperglycemia, with long-te rm current use of insulin (HCC) Last A1c 11.0 in May 2019 BG trends 200s Increase Lantus to 22 Units nightly Monitor BG ac&hs SSI level 2 Hypoglycemia protocol, CC diet ICATION LEAD * Assessment & Plan Note - Hope Cox APRN - 09/17/2019 12:46 PM APPLICATION LEAD Associated Problem(s): SASHA on CPAP Compliant with CPAP at home Continue home CPAP regimen ICATION LEAD * Assessment & Plan Note - Hope Cox APRN - 09/17/2019 12:46 PM APPLICATION LEAD Associated Problem(s): Morbid obesity due to excess calories (HCC) Complicates all aspects of care Strongly recommend dietary changes, lifestyle changes and weight loss ICATION LEAD * Assessment & Plan Note - Hope Cox APRN - 09/17/2019 12:45 PM APPLICATION LEAD Associated Problem(s): Generalized abdominal pain Patient reports generalized abdominal pain but this is worse in the left lower q uadrant. CT abdomen showed left-sided ureteral calculus. S/p ureteral stent on 08/30 See above plan for ureteral calculus Pain control with PO Percocet and IV Morphine ICATION LEAD * Assessment & Plan Note - Hope Cox APRN - 09/17/2019 12:45 PM APPLICATION LEAD Associated Problem(s): Essential hypertension Systolic (24hrs), Av , Min:110 , Max:148 Continue Metoprolol Hold HCTZ for now until taking adequate PO Monitor trends ICATION LEAD * Assessment & Plan Note - Hope Cox APRN - 09/17/2019 12:44 PM APPLICATION LEAD Associated Problem(s): COPD (chronic obstructive pulmonary disease) (HCC) Stable. 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 Isiah Benítez is a 69 y.o. [...] on 09/22, plans to discharge on 09/23 ICATION LEAD documented in this encounter Plan of Treatment Order Schedule Name Type Priority Associated Diag noses 1 Occurrences starting 09/23/2019 until 03/23/2020 Ambulatory referral to Outpatient Routine Pyelone phritis Home Health Referral documented as of this encounter Procedures Comments Procedure Name Priority Date/Time Associated Diag nosis GLUCOSE POC Routine 09/23/2019 12:11 PM APPLICATION LEAD GLUCOSE POC Routine 09/23/2019 8:09 AM APPLICATION LEAD CBC AND DIFF (MANUAL DIFF Routine 09/23/2019 IF NECESSARY) 3:03 AM APPLICATION LEAD BASIC METABOLIC PANEL Routine 09/23/2019 3:03 AM APPLICATION LEAD GLUCOSE POC Routine 09/22/2019 11:39 PM APPLICATION LEAD GLUCOSE POC Routine 09/22/2019 7:36 PM APPLICATION LEAD GLUCOSE POC Routine 09/22/2019 4:31 PM APPLICATION LEAD GLUCOSE POC Routine 09/22/2019 12:16 PM APPLICATION LEAD GLUCOSE POC Routine 09/22/2019 7:54 AM APPLICATION LEAD GLUCOSE POC Routine 09/22/2019 5:03 AM APPLICATION LEAD GLUCOSE POC Routine 09/22/2019 12:22 AM APPLICATION LEAD GLUCOSE POC Routine 09/21/2019 10:24 PM APPLICATION LEAD GLUCOSE POC Routine 09/21/2019 7:16 PM APPLICATION LEAD GLUCOSE POC Routine 09/21/2019 4:53 PM APPLICATION LEAD PULSE OXIMETRY, Routine 09/21/2019 CONTINUOUS 4:10 PM APPLICATION LEAD GLUCOSE POC Routine 09/21/2019 3:05 PM APPLICATION LEAD FL RETROGRADE UROGRAPHY Routine 09/21/2019 IN OR 2:52 PM APPLICATION LEAD STONE ANALYSIS Timed 09/21/2019 2:33 PM APPLICATION LEAD CYSTOSCOPY, RETROGRADE 09/21/2019 N20.1 PYELOGRAM, URETEROSCOPY, 2:01 PM APPLICATION LEAD LASER LITHOTRIPSY, WITH URETERAL STENT PLACEMENT Special Needs ROOM 4043LINDA ORDERING HOMIUM LASER jtBIOMED NOTIFIED REMOVAL, STENT, URETER, 09/21/2019 N20.1 CYSTOSCOPIC 2:01 PM APPLICATION LEAD Special Needs ROOM 4043LINDA ORDERING HOMIUM LASER jtBIOMED NOTIFIED GLUCOSE POC Routine 09/21/2019 11:34 AM APPLICATION LEAD GLUCOSE POC Routine 09/21/2019 7:40 AM APPLICATION LEAD TRIIODOTHYRONINE Add-On 09/21/2019 3:43 AM APPLICATION LEAD THYROID CASCADE Add-On 09/21/2019 3:43 AM APPLICATION LEAD T4 FREE Add-On 09/21/2019 3:43 AM APPLICATION LEAD HEMOGLOBIN A1C Add-On 09/21/2019 3:43 AM APPLICATION LEAD COMPREHENSIVE METABOLIC Routine 09/21/2019 PANEL 3:43 AM APPLICATION LEAD CBC AND DIFF (MANUAL DIFF Routine 09/21/2019 IF NECESSARY) 3:43 AM APPLICATION LEAD GLUCOSE POC Routine 09/20/2019 11:58 PM APPLICATION LEAD GLUCOSE POC Routine 09/20/2019 8:23 PM APPLICATION LEAD GLUCOSE POC Routine 09/20/2019 5:01 PM APPLICATION LEAD GLUCOSE POC Routine 09/20/2019 11:20 AM APPLICATION LEAD GLUCOSE POC Routine 09/20/2019 7:35 AM APPLICATION LEAD US ABDOMEN LIMITED Routine 09/20/2019 6:07 AM APPLICATION LEAD GLUCOSE POC Routine 09/20/2019 4:06 AM APPLICATION LEAD LACTATE VENOUS WB Timed 09/20/2019 2:19 AM APPLICATION LEAD COMPREHENSIVE METABOLIC Routine 09/20/2019 PANEL 2:19 AM APPLICATION LEAD CBC AND DIFF (MANUAL DIFF Routine 09/20/2019 IF NECESSARY) 2:19 AM APPLICATION LEAD GLUCOSE POC Routine 09/20/2019 12:03 AM APPLICATION LEAD TROPONIN Timed 09/19/2019 11:12 PM APPLICATION LEAD LACTATE VENOUS WB Timed 09/19/2019 11:12 PM APPLICATION LEAD GLUCOSE POC Routine 09/19/2019 10:26 PM APPLICATION LEAD XR CHEST 2 VIEWS (PA AND Routine 09/19/2019 LATERAL) 9:[address] HEAD WO CONTRAST STAT 09/19/2019 9:12 PM APPLICATION LEAD TROPONIN Timed 09/19/2019 8:15 PM APPLICATION LEAD LACTATE VENOUS WB Timed 09/19/2019 8:15 PM APPLICATION LEAD GLUCOSE POC Routine 09/19/2019 7:45 PM APPLICATION LEAD GLUCOSE POC Routine 09/19/2019 5:09 PM APPLICATION LEAD CULTURE, BLOOD Timed 09/19/2019 4:56 PM APPLICATION LEAD CULTURE, BLOOD Timed 09/19/2019 4:53 PM APPLICATION LEAD TROPONIN STAT 09/19/2019 4:53 PM APPLICATION LEAD LIPASE Add-On 09/19/2019 4:53 PM APPLICATION LEAD LACTATE VENOUS WB Routine 09/19/2019 4:53 PM APPLICATION LEAD COMPREHENSIVE METABOLIC STAT 09/19/2019 PANEL 4:53 PM APPLICATION LEAD COMPLETE BLOOD COUNT STAT 09/19/2019 4:53 PM APPLICATION LEAD GLUCOSE POC Routine 09/19/2019 4:35 PM APPLICATION LEAD ECG Routine 09/19/2019 3:45 PM APPLICATION LEAD GLUCOSE POC Routine 09/19/2019 3:23 PM APPLICATION LEAD GLUCOSE POC Routine 09/19/2019 11:48 AM APPLICATION LEAD URINALYSIS MICROSCOPIC Routine 09/19/2019 ONLY 11:35 AM APPLICATION LEAD URINALYSIS REFLEX Routine 09/19/2019 11:35 AM APPLICATION LEAD CULTURE, URINE Routine 09/19/2019 11:35 AM APPLICATION LEAD GLUCOSE POC Routine 09/19/2019 7:43 AM APPLICATION LEAD GLUCOSE POC Routine 09/19/2019 3:40 AM APPLICATION LEAD GLUCOSE POC Routine 09/18/2019 11:31 PM APPLICATION LEAD GLUCOSE POC Routine 09/18/2019 9:03 PM APPLICATION LEAD GLUCOSE POC Routine 09/18/2019 5:14 PM APPLICATION LEAD GLUCOSE POC Routine 09/18/2019 12:16 PM APPLICATION LEAD CBC AND DIFF (MANUAL DIFF Routine 09/18/2019 IF NECESSARY) 9:49 AM APPLICATION LEAD GLUCOSE POC Routine 09/18/2019 8:41 AM APPLICATION LEAD BASIC METABOLIC PANEL Routine 09/18/2019 8:06 AM APPLICATION LEAD GLUCOSE POC Routine 09/18/2019 4:07 AM APPLICATION LEAD GLUCOSE POC Routine 09/18/2019 12:04 AM APPLICATION LEAD LACTATE VENOUS WB Timed 09/17/2019 10:39 PM APPLICATION LEAD GLUCOSE POC Routine 09/17/2019 7:58 PM APPLICATION LEAD LACTATE VENOUS WB Timed 09/17/2019 7:24 PM APPLICATION LEAD GLUCOSE POC Routine 09/17/2019 5:10 PM APPLICATION LEAD TROPONIN Timed 09/17/2019 3:47 PM APPLICATION LEAD LACTATE VENOUS WB Timed 09/17/2019 3:47 PM APPLICATION LEAD CULTURE, BLOOD STAT 09/17/2019 1:02 PM APPLICATION LEAD CULTURE, BLOOD STAT 09/17/2019 12:38 PM APPLICATION LEAD TROPONIN STAT 09/17/2019 12:38 PM APPLICATION LEAD LACTATE VENOUS WB STAT 09/17/2019 12:38 PM APPLICATION LEAD URINALYSIS MICROSCOPIC STAT 09/17/2019 ONLY 10:05 AM APPLICATION LEAD URINALYSIS REFLEX STAT 09/17/2019 10:05 AM APPLICATION LEAD CULTURE, URINE STAT 09/17/2019 10:[address] ABDOMEN PELVIS W STAT 09/17/2019 CONTRAST 8:59 AM APPLICATION LEAD TROPONIN STAT 09/17/2019 8:38 AM APPLICATION LEAD LIPASE STAT 09/17/2019 8:38 AM APPLICATION LEAD COMPREHENSIVE METABOLIC STAT 09/17/2019 PANEL 8:38 AM APPLICATION LEAD CBC AND DIFF (MANUAL DIFF STAT 09/17/2019 IF NECESSARY) 8:38 AM APPLICATION LEAD XR CHEST SINGLE VIEW STAT 09/17/2019 FRONTAL 7:58 AM APPLICATION LEAD ECG STAT 09/17/2019 7:44 AM APPLICATION LEAD PULSE OXIMETRY, STAT 09/17/2019 CONTINUOUS 7:43 AM APPLICATION LEAD documented in this encounter Results * GLUCOSE POC (09/23/2019 12:11 PM APPLICATION LEAD) Only the most recent of 39 results within the time period is included. [facility] Glucose POC 166 (H) 70 - 100 mg/dL [facility] Specimen Performing Organization Address City/State/Zipcode Ph one Number [facility] [address] [facility] [place] [address] [facility] [address] [place] [facility] [address], [facility] * Basic Metabolic Panel (09/23/2019 3:03 AM APPLICATION LEAD) Only the most recent of 2 results within the time period is included. [facility] Sodium 135 133 - 147 MEQ/L [facility] Potassium 3.7 3.5 - 5.3 MEQ/L [facility] Chloride 94 (L) 96 - 112 MEQ/L [facility] Carbon Dioxide 36 (H) 20 - 32 MEQ/L [facility] Anion Gap 5 5 - 17 [facility] Calcium 9.0 8.4 - 10.5 mg/dL [facility] Glucose 146 (H) 70 - 100 mg/dL [facility] Blood Urea 30 (H) 7 - 26 mg/dL [facility] Nitrogen [facility] [place] [facility] Creatinine 0.7 0.4 - 1.1 mg/dL [facility] [place] [facility] eGFR Female AA 100 60 - 200 [facility] mL/min/1.73sq m Cedric Israels [place] [facility] eGFR Female 83 60 - 200 [facility] Non-AA mL/min/1.73sq m C[facility]ric Israeleugenia [place] [facility] Specimen Blood Performing Organization Address City/State/Zipcode Ph one Number [facility] [address] [place] [address] [facility] [facility] [address] [facility] [place] [address] [facility] * CBC and Diff (manual diff if necessary) (09/23/2019 3:03 AM APPLICATION LEAD) Only the most recent of 5 results within the time period is included. WBC 8.80 4.00 - 11.00 TH/uL [facility] [place] [facility] RBC 3.48 (L) 4.00 - 5.00 MIL/uL [facility] Hemoglobin 11.3 (L) 12.0 - 15.0 g/dL [facility] Hematocrit 35 (L) 36 - 45 % [facility] [place] [facility] MCV 99 80 - 99 fL [facility] [place] [facility] MCH 33 27 - 34 pg [facility] [place] [facility] MCHC 33 32 - 36 % [facility] RDW 13.6 11.5 - 14.5 % [facility] Platelet Count 172 140 - 400 TH/uL [facility] MPV 10.0 9.4 - 12.3 fL [facility] Nucleated RBCs 0 0 - 0 /100 [facility] [place] [facility] % Neutrophils 54 45 - 78 % [facility] [place] [facility] %Lymphocytes 34 15 - 47 % [facility] [place] [facility] %Monocytes 10 0 - 12 % [facility] %Eosinophils 2 0 - 7 % [facility] %Basophils 0 0 - 2 % [facility] % Imm Grans 0 0 - 1 % [facility] # Granulocytes 4.77 1.7 - 6.8 TH/uL [facility] # Lymphocytes 2.95 1.0 - 3.3 TH/uL [facility] # Monocytes 0.88 0.2 - 0.9 TH/uL [facility] # Eosinophils 0.16 0.0 - 0.4 TH/uL [facility] # Basophils 0.01 0.0 - 0.1 TH/uL [facility] Specimen Blood Performing Organization Address City/State/Zipcode Ph one Number [facility] [address] [place] [address] [facility] [facility] [address] [place] [address] [facility] * FL Retrograde Urography in OR (09/21/2019 2:52 PM APPLICATION LEAD) Specimen Impressions Performed At Fluoroscopic support for the Urology services. Plea se see operative LEVI report for details. READING SITE: [facility] Performed At Patient: ISIAH BENÍTEZ Sex#: F #: 1950 Jose #: [id number] Location: [facility] MAIN OR NONE Procedure Requested: [id number] FL RETRO GRADE UROGRAPHY IN OR Reason [...] Rad Results In - 09/21/2019 3:21 PM APPLICATION LEAD Patient: ISIAH BENÍTEZ Sex#: F #: 1950 Jose#: [id number] Location: [facility] MAIN OR NONE Procedure Requested: [id number] FL RETROGRADE UROGRAPHY IN OR Reason for [...] see operative report for details. READING SITE: [facility] Performing Organization Address City/[facility] Ph one Number LEVI * Stone Analysis (09/21/2019 2:33 PM APPLICATION LEAD) Stone Color Brown [facility] Stone Size [id number]: Specimen received mm [facility] as fragments. Stone Weight 61.4 mg [facility] Stone CommentComment: Percentage [facility] Composition (Represents the % compositi on) Stone Ca 10 % [facility] oxalate dihydrate Stone Ca 90 % [facility] oxalate monohydr Stone Comment Comment [facility] Comment: Calculi report will follow via computer, mail or mortgage counselor delivery. Stone Comment Comment [facility] Comment: Physician questions regarding Calculi Analysis contact [facility] at: [phone]. Disclaimer : Comment [facility] Comment: This test was developed and its performance characteristics determined by [facility]. It has not been cleared or approved by the Food and Drug Administration. Test performed at [facility] Stone Analysis [address] [place] [address] [place] [address] Source CommentComment: Left Ureter [facility] Specimen Stone - Left Ureter Performing Organization Address City/State/[facility] Ph one Number [facility] [address] [place], [place] [address] [facility] Interface [id number] [place] [address] [place] [address] * Triiodothyronine (09/21/2019 3:43 AM APPLICATION LEAD) Triiodothyronin 0.8 (L) 1.0 - 1.7 ng/mL [facility] Lab Specimen Blood Performing Organization Address City/[facility] Ph one Number [facility] [address] [place] [address] LABORATORIES [facility] Lab [address] [place] [address] * T4 Free (09/21/2019 3:43 AM APPLICATION LEAD) T4 Free 1.0 0.8 - 2.2 ng/dL [facility] [place] [facility] Specimen Blood Performing Organization Address [facility] one Number [facility] [address] [place] [address] [facility] [facility] [address] [place] [address] [facility] * Thyroid [place] (09/21/2019 3:43 AM APPLICATION LEAD) Thyroid 0.37 (L) 0.47 - 4.68 uIU/mL [facility] Hormone [place] [facility] Specimen Blood Performing Organization Address [facility] one Number [facility] [address] [place], [place] [address] [facility] [address] [place] [address] [facility] * Hemoglobin A1C (09/21/2019 3:43 AM APPLICATION LEAD) Hemoglobin A1C 12.4 (H) 4.0 - 5.6 % [facility] Comment: Hospital Lab Non-diabetic 4.0 - 5.6 % Prediabetes 5.7 - 6.4 % Diabetes >= 6.5 % Specimen Blood Performing Organization Address City/State/Zipcode Ph one Number [facility] [address] [place] [address] LABORATORIES [facility] [address] [place] [address] * Comprehensive Metabolic Panel (09/21/2019 3:43 AM APPLICATION LEAD) Only the most recent of 4 results within the time period is included. [facility] Signature Sodium 136 133 - 147 MEQ/L [facility] Potassium 3.9 3.5 - 5.3 MEQ/L [facility] Chloride 96 96 - 112 MEQ/L [facility] Carbon Dioxide 36 (H) 20 - 32 MEQ/L [facility] Anion Gap 5 5 - 17 [facility] [place] [facility] Calcium 10.0 8.4 - 10.5 mg/dL [facility] Glucose 107 (H) 70 - 100 mg/dL [facility] Protein Total 7.8 6.0 - 8.2 g/dL [facility] Serum [facility] [place] [facility] Albumin 4.1 3.5 - 5.0 g/dL [facility] Alkaline 142 (H) 42 - 140 IU/L [facility] Phosphatase [facility] [place] [facility] Alanine 94 (H) 0 - 34 IU/L [facility] Aminotransferas [facility] [place] [facility] Aspartate 36 15 - 46 IU/L [facility] Aminotransferas [facility] [place] [facility] Bilirubin Total 0.4 0.2 - 1.3 mg/dL [facility] Blood Urea 26 7 - 26 mg/dL [facility] Nitrogen [facility] [place] [facility] Creatinine 0.8 0.4 - 1.1 mg/dL [facility] [place] [facility] eGFR Female AA 86 60 - 200 [facility] mL/min/1.73sq [facility] [place] [facility] eGFR Female 72 60 - 200 [facility] Non-AA mL/min/1.73sq ken Ramos [facility] Specimen Blood Performing Organization Address City/State/Zipcode Ph one Number [facility] [address] [place] [address] [facility] [address] [place] [address] [facility] * US Abdomen limited (09/20/2019 6:07 AM APPLICATION LEAD) Specimen Impressions Performed At Impression: LEVI 1. Diffuse hepatic steatosis without fo rosalind hepatic lesion. 2. Cholecystectomy. ATTESTATION STATEMENT: The Staff Radiologist has personally re viewed this study and agrees with the findings in this report. READING SITE: [facility] Narrative Performed At Patient: ISIAH BENÍTEZ Sex#: F #: 1950 Jose #: [id number] Location: [place] [address] Access ion#: [id number] Procedure Requested: [id number] US ABDOM EN LIMITED Reason for Exam: [...] Rad Results In - 09/20/2019 7:38 AM APPLICATION LEAD Patient: ISIAH BENÍTEZ Sex#: F #: 1950 Jose#: [id number] Location: [place] [id number] Procedure Requested: [id number] US ABDOMEN LIMITED Reason for Exam: elevated [...] the findings in this report. READING SITE: [facility] Performing Organization Address [facility] one Number LEVI * Lactate Venous WB (09/20/2019 2:19 AM APPLICATION LEAD) Only the most recent of 8 results within the time period is included. Lactate Venous 1.8 0.0 - 2.0 mmol/L [facility] [place] [facility] Specimen Blood Narrative Performed At Reflex sepsis screen >2.0 [facility] Performing Organization Address City/[facility] one Number [facility] [address] [place] [address] [facility] [facility] [address] [place] [address] [place] [facility] [address] [place] [address], [place] [phone] [facility] * Troponin - 3 and 6 hr (09/19/2019 11:12 PM APPLICATION LEAD) Only the most recent of 6 results within the time period is included. Troponin <0.01 0.00 - 0.03 ng/mL [facility] Comment: Cedric Ramos Troponin Value [place] [facility] Interpretation 0.00 - 0.03 Healthy 0.04 - 0.12 Increased Cardiac Risk >0.12 Myocardial Infarction Troponin may not become elevated until 6 to 8 hours after onset of symptoms. Specimen Blood Performing Organization Address City/State/Zipcode Ph one Number [facility] [address] [place] [address] [facility] [facility] [address] [place] [address] [facility] * XR Chest 2 views (PA and lateral) (09/19/2019 9:19 PM APPLICATION LEAD) Specimen Impressions Performed At 1. Bibasilar subsegmental atelectasis. LEVI READING SITE: [facility] Narrative Performed At Patient: ISIAH BENÍTEZ Sex#: F #: 1950 Jose #: [id number] Location: [place] [address] Access ion#: [id number] Procedure Requested: [id number] XR CHEST 2 VIEWS (PA AND LATERAL) [...] Rad Results In - 09/19/2019 9:54 PM APPLICATION LEAD Patient: ISIAH BENÍTEZ Sex#: F #: 1950 Jose#: [id number] Location: [facility] 4 U 1 4042-08 Procedure Requested: [id number] XR CHEST 2 VIEWS (PA AND LATERAL) [...] IMPRESSION 1. Bibasilar subsegmental atelectasis. READING SITE: [facility] Organization Address City/State/Zipcode Ph one Number LEVI * CT Head wo contrast (09/19/2019 9:12 PM APPLICATION LEAD) Specimen Impressions Performed At Impression: LEVI No acute intracranial process. Mild cerebral volume loss. Mild chronic small vessel ischemic disease. The above findings are in general agree ment with those in the preliminary report provided by [email or web address]. READING SITE: [facility]. ATTESTATION STATEMENT: The Staff Radiol ogist has personally reviewed the images and dictated, reviewed, or edite d the final report. Narrative Performed At Patient: ISIAH BENÍTEZ Sex#: F #: 1950 Jose #: [id number] Location: [address] 1 [facility]10-21 Access ion#: [id number] Procedure Requested: [id number] CT HEAD WO CONTRAST Reason for Exam: [...] The mastoid air cells are clear. The watch mechanic topogram shows no lytic lesio n or fracture. Procedure Note Interface, Rad Results In - 09/20/2019 10:19 AM APPLICATION LEAD Patient: ISIAH BENÍTEZ Sex#: Paulina #: 1950 Jose#: [id number] Location: [place] [address] 4043-01 Procedure Requested: [id number] CT HEAD WO CONTRAST Reason for Exam: [...] The mastoid air cells are clear. The watch mechanic topogram shows no lytic lesion or fracture. IMPRESSION Impression: No acute intracranial process. Mild cerebral volume loss. Mild chronic small vessel ischemic disease. The above findings are in general agreement with those in the preliminary report provided by [employer]. READING SITE: [facility]. ATTESTATION STATEMENT: The Staff Radiologist has personally reviewed the images and dictated, reviewed, or edited the final report. Performing Organization Address City/[facility] Ph one Number LEVI * Culture, Blood (09/19/2019 4:56 PM APPLICATION LEAD) Only the most recent of 4 results within the time period is included. Culture Result No Growth at 5 days [facility] Lab Specimen Blood Narrative Performed At 3ml rfa [facility] LABORATORIES Performing Organization Address [facility] one Number [address] [address] LABORATORIES [facility] Lab [address] [place] [address] * Lipase (09/19/2019 4:53 PM APPLICATION LEAD) Only the most recent of 2 results within the time period is included. Lipase 143 23 - 300 IU/L [facility] Lab Specimen Blood Performing Organization Address [facility] one Number [facility] [address] [facility] [place] [address] [facility] [facility] [address] [facility] [place] [address] [facility] * Complete Blood Count (09/19/2019 4:53 PM APPLICATION LEAD) WBC 10.54 4.00 - 11.00 TH/uL [facility] RBC 4.33 4.00 - 5.00 MIL/uL [facility] Hemoglobin 14.0 12.0 - 15.0 g/dL [facility] [place] [facility] Hematocrit 43 36 - 45 % [facility] [place] [facility] MCV 99 80 - 99 fL [facility] MCH 32 27 - 34 pg [facility] MCHC 33 32 - 36 % [facility] RDW 13.1 11.5 - 14.5 % [facility] Platelet Count 197 140 - 400 TH/uL [facility] MPV 10.5 9.4 - 12.3 fL [facility] Nucleated RBCs 0 0 - 0 /100 [facility] Specimen Blood Performing Organization Address City/State/[facility] Ph one Number [facility] [address] [place] [address] [facility] [facility] [address] [facility] [place] [address] [facility] * Electrocardiogram (ECG) (09/19/2019 3:45 PM APPLICATION LEAD) Only the most recent of 2 results within the time period is included. QRSd 108 TRACEMASTER QT 384 TRACEMASTER QTC 454 TRACEMASTER ECGHR 84 TRACEMASTER ECGPR 144 TRACEMASTER Specimen Narrative Performed At [facility] Test Date: 2019-09-19 Pat Name: ISIAH JACKELIN Department: SP1 Room: 4043 Gender: Female Wood [employer]our Miller: [id number] : 1950 Requested By: HOPE COX Order Number: [id number] Reading MD: Louie Reyes Measurements Intervals Ararat Rate: 84 P: 38 WY: 144 QRS: 3 QRSD: 108 T: 24 QT: 384 QTc: 454 Interpretive Statements SINUS RHYTHM PROBABLE LEFT VENTRICULAR HYPERTROPHY Electronically Signed On 09-20-2019 10:3 7:02 APPLICATION LEAD by Louie Reyes Procedure Note Interface, External Ris In - 09/20/2019 10:37 AM APPLICATION LEAD [facility] Test Date: 2019-09-19 Pat Name: ISIAH BENÍTEZ Department: SP1 Room: 4043 Gender: Female [employer] Miller: [id number] : 1950 Requested By: HOPE COX Order Number: [id number] Reading MD: Louie Reyes Measurements Intervals Ararat Rate: 84 P: 38 WY: 144 QRS: 3 QRSD: 108 T: 24 QT: 384 QTc: 454 Interpretive Statements SINUS RHYTHM PROBABLE LEFT VENTRICULAR HYPERTROPHY Electronically Signed On 09-20-2019 10:37:02 APPLICATION LEAD by Louie Reyes Performing Organization Address [facility] one Number TRACEMASTER * Urinalysis Microscopic Only (09/19/2019 11:35 AM APPLICATION LEAD) Only the most recent of 2 results within the time period is included. Microscopic RBC >40 (A) 0 - 5 /hpf [facility] Urine [facility] [place] [facility] Microscopic WBC 0-5 0 - 5 /hpf [facility] Urine [facility] [place] [facility] Epithelial Absent Absent [facility] [place] [facility] Hyaline Cast Absent Absent [facility]'s [facility] [place] [facility] Bacteria Absent Absent [facility] [place] [facility] Specimen Catheter Urine Performing Organization Address [facility] one Number [facility] [address] [facility] [place] [address] [facility] [facility] [address] [facility]'s [facility] [place] [address] [facility] * Culture, Urine (09/19/2019 11:35 AM APPLICATION LEAD) Only the most recent of 2 results within the time period is included. Culture Result No growth [facility] Lab Specimen Catheter Urine Performing Organization Address [facility] one Number [facility] [address] [place] [address] LABORATORIES [facility] [address] [place] [id number] * Urinalysis Reflex (09/19/2019 11:35 AM APPLICATION LEAD) Only the most recent of 2 results within the time period is included. Appearance, Yellow [facility] [place] [facility] Glucose Urine >=1000 (A) Negative mg/dL [facility] [place] [facility] Bilirubin Urine Negative Negative [facility] [place] [facility] Ketones Urine Negative Negative mg/dL [facility] [place] [facility] Specific 1.020 1.001 - 1.030 [facility] [place], UA [facility] [place] [facility] Hemoglobin Large (A) Negative [facility] U[facility] [place] [facility] PH Urine 5.5 5.0 - 8.0 leonel's [facility] [place] [facility] Protein Urine 30 (A) Negative mg/dL [facility] Qual [facility] [place] [facility] Urobilinogen Negative Negative EU/dL [facility] Urine [facility] [place] [facility] Nitrite Urine Negative Negative [facility] [place] [facility] Leukocyte Negative Negative [facility] [place] [facility] Specimen Catheter Urine Performing Organization Address City/State/[facility] Ph one Number [facility] [address] [facility] [place] [address] [facility] [address] [facility] [employer] [place] [address] [facility] * CT Abdomen Pelvis w contrast (09/17/2019 8:59 AM APPLICATION LEAD) Specimen Impressions Performed At 1. Interval placement [...] biliary obstruction, if clinically warranted. READING SITE: [facility] ATTESTATION STATEMENT: The staff radiol ogist has personally reviewed the images and dictated, reviewed, or edite d the final report. Narrative Performed At Patient: ISIAH BENÍTEZ Sex#: Paulina #: 1950 Jose #: [id number] Location: [facility] ED SED-11 Procedure Requested: [id number] CT ABDOM EN PELVIS W CONTRAST Reason [...] Rad Results In - 09/17/2019 9:54 AM APPLICATION LEAD Patient: ISIAH BENÍTEZ Sex#: Paulina #: 1950 Jose#: [id number] Location: [facility] ED SED-11 Procedure Requested: [id number] CT ABDOMEN PELVIS W CONTRAST Reason for [...] biliary obstruction, if clinically warranted. READING SITE: [facility] ATTESTATION STATEMENT: The staff radiologist has personally reviewed the images and dictated, reviewed, or edited the final report. Performing Organization Address City/State/Zipcode Ph eveline SIMS * XR Chest single view frontal (09/17/2019 7:58 AM APPLICATION LEAD) Specimen Impressions Performed At 1. No acute cardiopulmonary abnormality. LEVI 2. Low lung volumes. Mild atelectasis . READING SITE: [facility] Narrative Performed At Patient: ISIAH BENÍTEZ Sex#: F #: [id number] Jose #: [id number] Location: SED-11 Procedure Requested: [id number] XR CHEST SINGLE VIEW FRONTAL Reason for [...] Rad Results In - 09/17/2019 8:14 AM APPLICATION LEAD Patient: ISIAH BENÍTEZ Sex#: Paulina #: 1950 Jose#: [id number] Location: [facility] ED SED-11 Procedure Requested: [id number] XR CHEST SINGLE VIEW FRONTAL Reason for [...] Low lung volumes. Mild atelectasis. READING SITE: [facility] Address City/State/Zipcode Ph one Number LEVI documented in this encounter Visit Diagnoses Not on filedocumented in this encounter Administered Medications Action Date Dose Rate Site Medication Order MAR Action 09/22/2019 8:23 PM APPLICATION LEAD 25 mg amitriptyline (ELAVIL) tablet 25 mg Given 25 mg, Oral, Nightly, First dose on 09/17/19 at 2100 25 mg Given 09/21/2019 8:13 PM APPLICATION LEAD 25 mg Given 09/20/2019 10:13 PM APPLICATION LEAD 09/22/2019 8:23 PM APPLICATION LEAD 40 mg atorvastatin (LIPITOR) tablet 40 mg Given 40 mg, Oral, Nightly, First dose on 09/17/19 at 2100 40 mg Given 09/21/2019 8:13 PM APPLICATION LEAD 40 mg Given 09/20/2019 10:13 PM APPLICATION LEAD 09/21/2019 2:35 PM APPLICATION LEAD 1 suppository belladonna-opium (B&O SUPPRETTES) Given 16.2-60 MG suppository As needed, Starting Ju 09/21/19 at 1435 , Intra-op 09/23/2019 8:23 AM APPLICATION LEAD 20 mg citalopram (CeleXA) tablet 20 mg Given 20 mg, Oral, Daily, First dose on 09/17/19 at 1240 20 mg Given 09/22/2019 8:50 AM APPLICATION LEAD 20 mg Given 09/20/2019 9:00 AM APPLICATION LEAD 09/17/2019 8:04 PM APPLICATION LEAD 10 mg cyclobenzaprine (FLEXERIL) tablet 10 mg [...] less than 70 mg/dL., 09/22/2019 10:31 AM APPLICATION LEAD 100 mg docusate sodium (COLACE) capsule 100 mg Given 100 mg, Oral, 2 times daily PRN, stool softening, Starting Wed09/17/19 at 1238 , DO NOT CRUSH OR CHEW., 100 mg Given 09/20/2019 9:00 AM APPLICATION LEAD 100 mg Given 09/17/2019 5:47 PM APPLICATION LEAD fentaNYL (SUBLIMAZE) injection 12.5 mcg 12.5 mcg, [...] or PO opiate therapy., 09/23/2019 8:10 AM APPLICATION LEAD 1 puff fluticasone furoate-vilanterol (BREO Given ELLIPTA) 200-25 mcg/actuation inhaler 1 puff 1 puff, Inhalation, Daily, First dose o n Wed09/17/19 at 1240, Rinse mouth with water after use if patient not on vent. 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 May give IM or SQ in arm and turn patient on side. Reconstitute powder for injection by adding 1 mL of dispatcher automobile rental-supplied sterile diluent or sterile water for injection [...] for injection by adding 1 mL of [employer]cher [employer]-supplied sterile diluent o r sterile water for [...] less than 70 mg/dL., 09/23/2019 8:23 AM APPLICATION LEAD 25 mg hydroCHLOROthiazide (HYDRODIURIL) tablet Given 25 mg 25 mg, Oral, Daily, First dose on Wed09/20/19 at 0900 25 mg Given 09/22/2019 8:50 AM APPLICATION LEAD 25 mg Given 09/20/2019 9:00 AM APPLICATION LEAD 09/21/2019 8:13 PM APPLICATION LEAD 0.125 mg hyoscyamine (LEVSIN/SL) SL tablet 0.125 Given mg 0.125 mg, Sublingual, Every 4 hours PRN , bladder spasms, Starting 09/18/19 at 0905 0.125 mg Given 09/20/2019 2:37 PM APPLICATION LEAD 0.125 mg Given 09/18/2019 11:59 PM APPLICATION LEAD 09/22/2019 9:31 PM APPLICATION LEAD 25 Units Left Low er Abdomen insulin glargine (LANTUS) injection 25 Given Units 25 Units, Subcutaneous, Nightly, First dose (after last modification) on Wed09/19/19 at 2100 25 Units Left Lower Abdomen Given 09/21/2019 8:14 PM APPLICATION LEAD 25 Units Right Lower Abdomen Given 09/20/2019 9:00 PM APPLICATION LEAD 09/23/2019 12:39 PM APPLICATION LEAD 3 Units Right Lo wer Abdomen insulin [...] Left Lower Abdomen Given 09/22/2019 9:31 PM APPLICATION LEAD 15 Units Left Lower Abdomen Given 09/22/2019 4:41 PM APPLICATION LEAD 09/21/2019 2:35 PM APPLICATION LEAD 1 application Operativ e Site lidocaine (GLYDO) 2 % jelly Given As needed, Starting Ju 09/21/19 at 1435 , Intra-op 09/21/2019 10:16 PM APPLICATION LEAD 3 mg melatonin tablet 3 mg Given 3 mg, Oral, Nightly PRN, sleep, Startin g Wed09/17/19 at 1238, Give 3-4 hours prior to planned bedtime., 3 mg Given 09/20/2019 10:13 PM APPLICATION LEAD 3 mg Given 09/19/2019 8:22 PM APPLICATION LEAD 09/23/2019 8:23 AM APPLICATION LEAD 100 mg metoprolol tartrate (LOPRESSOR) tablet Given 100 mg 100 mg, Oral, 2 times daily, First dose on Wed09/17/19 at 1315, Hold for SBP <100, HR <55, 100 mg Given 09/22/2019 8:23 PM APPLICATION LEAD 100 mg Given 09/22/2019 8:49 AM APPLICATION LEAD 09/23/2019 8:23 AM APPLICATION LEAD 2 tablets oxyCODONE-acetaminophen (PERCOCET) 5-325 Given mg 1-2 tablet 1-2 tablet, Oral, Every 6 hours PRN, moderate pain (pain score 4-6), severe pain (pain score 7-10), Starting 09/18/19 at 1139, Do not exceed 4 GM/DAY of acetaminophen. If 65 or older do no t exceed 3 GM/DAY. If chronic alcoholic d o not exceed 2 GM/DAY., 2 tablets Given 09/23/2019 2:00 AM APPLICATION LEAD 2 tablets Given 09/22/2019 7:48 PM APPLICATION LEAD 09/22/2019 10:31 AM APPLICATION LEAD 100 mg phenazopyridine (PYRIDIUM) tablet 100 mg [...] through a central line., 09/17/2019 1:12 PM APPLICATION LEAD 5 mg prochlorperazine (COMPAZINE) injection Given 2.5-5 mg 2.5-5 mg, Intravenous, Every 4 hours PRN, nausea/vomiting (1st line), Starting [place] 09/17/19 at 1238, May repea t 2.5 [...] and refuses IM injection., 09/21/2019 2:28 PM APPLICATION LEAD 3,000 mL sodium chloride irrigation 3000 mL Given (bladder) (NS) 0.9 % As needed, Starting Ju 09/21/19 at 1426 , Intra-op 3,000 mL Given 09/21/2019 2:26 PM APPLICATION LEAD 09/23/2019 9:07 AM APPLICATION LEAD 2 mg tolterodine (DETROL) tablet 2 mg Given 2 mg, Oral, 2 times daily, First dose o n 09/17/19 at 1240 2 mg Given 09/22/2019 8:26 PM APPLICATION LEAD 2 mg Given 09/22/2019 8:50 AM APPLICATION LEAD documented in this encounter Additional Health Concerns Last Indicated Resolved Time Infection Onset Date 08/31/2019 09/17/2019 8:17 AM APPLICATION LEAD RSV 08/31/2019 documented as of this encounter
--- OUTSIDE RECORDS SUMMARY | 2020-03-12 09:04 | XMS REPORT | Encounter Summary ---
Author Author [facility] Organization [facility] Address Unknown Phone Unavailable Care Team Providers Care Carbonating Stone Cleaner Name Role Phone Ebony Sharp MD PCP Encounter Details Care Team Description Date [place] [address] [place] [id number] 09/22/2019 Telephone [facility] [address] [place], [place] [id number] Social History Date Tobacco Use Types Packs/Day [...] - Tonja Hernandez - 09/22/2019 4:23 PM FOREIGN LANGUAGE INSTRUCTOR I scheduled pt for 09/28/[address] Huber. I lm for pt to call me back Wednesday to discuss. IGN LANGUAGE INSTRUCTOR * Telephone Encounter - Tonja Hernandez - 09/22/2019 4:23 PM FOREIGN LANGUAGE INSTRUCTOR ----- Message from Janet Aragon MD sent at 09/21/2019 2:45 PM FOREIGN LANGUAGE INSTRUCTOR ----- Regarding: stent pull Please schedule stent pull with KUB with agustin next Wednesday or . If no openings, schedule with me the following week that I am back from vacation. Pls confirm, thanks. Pt currently inpatient [place] [facility], she should be going home soon. IGN LANGUAGE INSTRUCTOR documented in this encounter Plan of Treatment Not on filedocumented as of this encounter Visit Diagnoses Not on filedocumented in this encounter
--- NOTE | 2020-03-12 09:05 | ED General ---
General Chief Complaint: General Problems/Pain Stated Complaint: DIARRHEA;BLOOD SUGAR ISSUES;COPD Nursing Triage Note: AMB TO ROOM WAS SEEN AT [facility] AND THEY OFFERED TO GIVE HER IV FLUIDS SHE CHOOSE TO COME TO ER PATIENT REPORTS THAT SHE HAS BEEN OUT OF HER MEDS FOR 2 WEEKS HAS HAD DIARRHEA FOR 10DAY AND HAVING R FLANK PAIN Nursing Sepsis Screen: No Definite Risk Source of Information: Patient Exam Limitations: No Limitations History of Present Illness Date Seen by Provider: Mar 12, 2020 Time Seen by Provider: 08:42 Initial Comments Here with report of diarrhea for the last 2 weeks as well as being out of her insulin and all of her other meds except for metoprolol. Went to the clinic today and they were going to evaluate her but she decided she would prefer to just come to the hospital. She reports left flank pain and has history of right sided ureteral stone and multiple stents with subsequent sepsis. Reports urethra l pain and bladder pain as well as frequency of urination and has concerns of urinary tract infection. Relocated here with her sister from [place], [place].. Sling of physicians and insurance or [place] and now is switching over to [place]. Follows with Dr. Giron but had gone to [facility] because she is out of meds and does not have insurance currently to get her medicines. States that her bottom is hurting because she is wiping so much from the diarrhea and does have some blood on the tissue when she wipes but not active persistent bleeding. Does have some nausea. Timing/Duration: Constant, Other (2 weeks) Severity: Moderate Associated Systoms: No Chest Pain, No Cough, No Fever/Chills; Nausea/Vomiting; No Shortness of Air; Weakness Allergies and Home Medications Allergies Coded Allergies: Sulfa (Sulfonamide Antibiotics) (Verified Allergy, Unknown, 11/26/06) lisinopril (Verified Allergy, Unknown, 07/26/14) metformin (Verified Allergy, Unknown, 07/26/14) Home Medications Albuterol 8.5 Gm Hfa.aer.ad, 2 PUFF IH Q4H PRN for SHORTNESS OF BREATH, (Reported) NEEDED FOR SHORTNESS OF BREATH Albuterol Sulfate/Ipratropium 3 Ml Solution, 3 ML IH Q4H PRN for SHORTNESS OF BREATH, (Reported) NEEDED FOR SHORTNESS OF BREATH Amitriptyline Hcl 25 Mg Tablet, 25 MG PO HS, (Reported) Amlodipine Besylate 2.5 Mg Tablet, 2.5 MG PO DAILY, (Reported) Aspirin 81 Mg Tabec, 81 MG PO DAILY, (Reported) Biotin 5,000 Mcg Tab.rapdis, 5,000 MCG PO DAILY, (Reported) Citalopram Hydrobromide 20 Mg Tab, 20 MG PO DAILY, (Reported) Fluticasone/Vilanterol 1 Each Blst.w.dev, 1 EACH IH DAILY, (Reported) Gabapentin 300 Mg Capsule, 600 MG PO TID, (Reported) Metoprolol Tartrate 100 Mg Tablet, 100 MG PO BID, (Reported) WITH MEALS Simvastatin 20 Mg Tablet, 20 MG PO HS, (Reported) Patient Home Medication List Home Medication List Reviewed: Yes Review of Systems Review of Systems Constitutional: see HPI; No chills, No fever EENTM: no symptoms reported Respiratory: no symptoms reported Cardiovascular: no symptoms reported Gastrointestinal: abdominal pain (suprapubic), diarrhea, nausea; No vomiting Genitourinary: see HPI Musculoskeletal: back pain; No neck pain Skin: no symptoms reported Psychiatric/Neurological: No Symptoms Reported All Other Systems Reviewed Negative Unless Noted: Yes Past Mnvjdlh-Mduucs-Nlvgzb Hx Past Med/Social Hx: Reviewed Nursing Past Med/Soc Hx Patient Social History Alcohol Use: Occasionally Uses Recreational Drug Use: No Type Used: Cigarettes Recent Foreign Travel: No Contact w/Someone Who Travel: No Recent Infectious Disease Expo: No Recent Hopitalizations: No Immunizations Up To Date Tetanus Booster (TDap): Less than 5yrs PED Vaccines UTD: No Date of Pneumonia Vaccine: Aug 25, 2013 Date of Influenza Vaccine: May 22, 2018 Past Medical History Surgeries: Yes (BILAT KNEE REPLACEMENT; L ANKLE FX/ORIF;HYST/BSO;CATARACTS;URETERAL STENTS) Cardiac, Section, Eye Surgery, Gallbladder, Hysterectomy, Oophorectomy, Orthopedic, Renal Respiratory: Yes Pneumonia, COPD Cardiac: Yes (HX OF ANGIOEDEMA DUE TO MEDICATION;CARDIAC CATH 03/2010-NO INTERVENTION) Chronic Edema/Swelling, Coronary Artery Disease, High Cholesterol, Hypertension Neurological: Yes Neuropathy Reproductive Disorders: Yes (hysterectomy) VP GENETIC History: Hysterectomy Sexually Transmitted Disease: Yes (TRICHOMONAS) HIV/AIDS: No Genitourinary: Yes (CHRONIC RENAL INSUFFICIENCT) Kidney Infection, Bladder Infection, Kidney Stones, Renal Failure Gastrointestinal: Yes (EGD'S) Gastroesophageal Reflux, Pancreatitis, Ulcer Musculoskeletal: Yes (BILATERAL KNEE REPLACEMENT; LEFT ANKLE FX/ORIF;CHRONIC GENERALIZED PAIN) Arthritis, Back Injury, Chronic Back Pain, Fractures Endocrine: Yes Diabetes, Insulin dep HEENT: Yes (ONLY HAS PERIPHERAL VISION IN LEFT EYE) Cataract Loss of Vision: Left Cancer: No Psychosocial: Yes Eating Disorder, Sleep Difficulties, Anxiety, Depression Integumentary: No Blood Disorders: No Adverse Reaction/Blood Tranf: No Family Medical History Reviewed Nursing Family Hx Alcoholism 09 SISTER 09 SISTER Cancer 03 MOTHER Cataract 09 SISTER Family history: Cardiovascular disease 09 BROTHER (HEART ATTACK) Family history: Diabetes mellitus 09 SISTER Family history: Glaucoma 09 SISTER 09 SISTER Family history: Hypertension 09 BROTHER 09 BROTHER 09 BROTHER Family history: Osteoporosis 09 SISTER 09 SISTER Kidney disease 09 SISTER Seizure disorder Stroke 09 BROTHER Heart Disease, Cancer, CVA, Diabetes Physical Exam Vital Signs Vital Signs - First Documented 03/12/20 03/12/20 08:27 09:48 Temp 36.6 Pulse 92 Resp 18 B/P (MAP) 142/106 (118) Pulse Ox 93 O2 Delivery Room Air O2 Flow Rate 2.00 Capillary Refill : Less Than 3 Seconds Height, Weight, BMI Height: 5'0.00" Weight: 220lbs. 0.3oz. 99.376959qp; 34.00 BMI Method:Stated General Appearance: No Apparent Distress, WD/WN, Obese HEENT: PERRL/EOMI, Pharynx Normal Neck: Non Tender, Supple Respiratory: Lungs Clear, Normal Breath Sounds Cardiovascular: Regular Rate, Rhythm, No Murmur Gastrointestinal: Soft, Tenderness (suprapubic and left-sided) Back: Normal Inspection, No CVA Tenderness, No Vertebral Tenderness Extremity: Normal Range of Motion, Non Tender Neurologic/Psychiatric: Alert, Oriented x3 Skin: Normal Color, Warm/Dry Progress/Results/Core Measures Suspected Sepsis Recent Fever Within 48 Hours: No Infection Criteria Present: None New/Unexplained Altered Menta: No Sepsis Screen: No Definite Risk SIRS Temperature: Pulse: 92 Respiratory Rate: 18 Laboratory Tests 03/12/20 09:00: White Blood Count 9.7 Blood Pressure 142 /106 Mean: 118 Laboratory Tests 03/12/20 09:00: Creatinine 1.08, Platelet Count 184, Total Bilirubin 0.5 Results/Orders Lab Results Laboratory Tests Test 03/12/20 08:30 03/12/20 09:00 03/12/20 10:31 03/12/20 10:38 Range/Units Glucometer 350 H 216 H 70-110 MG/DL White Blood Count 9.7 4.3-11.0 10^3/uL Red Blood Count 4.46 4.35-5.85 10^6/uL Hemoglobin 14.1 11.5-16.0 G/DL Hematocrit 43 35-52 % Mean Corpuscular Volume 97 80-99 FL Mean Corpuscular Hemoglobin 32 25-34 PG Mean Corpuscular Hemoglobin Concent 33 32-36 G/DL Red Cell Distribution Width 14.9 H 10.0-14.5 % Platelet Count 184 130-400 10^3/uL Mean Platelet Volume 10.0 7.4-10.4 FL Neutrophils (%) (Auto) 62 42-75 % Lymphocytes (%) (Auto) 27 12-44 % Monocytes (%) (Auto) 9 0-12 % Eosinophils (%) (Auto) 2 0-10 % Basophils (%) (Auto) 0 0-10 % Neutrophils # (Auto) 6.0 1.8-7.8 X 10^3 Lymphocytes # (Auto) 2.6 1.0-4.0 X 10^3 Monocytes # (Auto) 0.8 0.0-1.0 X 10^3 Eosinophils # (Auto) 0.2 0.0-0.3 10^3/uL Basophils # (Auto) 0.0 0.0-0.1 10^3/uL Sodium Level 137 135-145 MMOL/L Potassium Level 4.3 3.6-5.0 MMOL/L Chloride Level 100 98-107 MMOL/L Carbon Dioxide Level 23 21-32 MMOL/L Anion Gap 14 5-14 MMOL/L Blood Urea Nitrogen 11 7-18 MG/DL Creatinine 1.08 0.60-1.30 MG/DL Estimat Glomerular Filtration Rate > 60 BUN/Creatinine Ratio 10 Glucose Level 364 H 70-105 MG/DL Calcium Level 9.1 8.5-10.1 MG/DL Corrected Calcium 9.2 8.5-10.1 MG/DL Total Bilirubin 0.5 0.1-1.0 MG/DL Aspartate Amino Transf (AST/SGOT) 33 5-34 U/L Alanine Aminotransferase (ALT/SGPT) 25 0-55 U/L Alkaline Phosphatase 79 40-136 U/L C-Reactive Protein High Sensitivity 1.60 H 0.00-0.50 MG/DL Total Protein 8.2 6.4-8.2 GM/DL Albumin 3.9 3.2-4.5 GM/DL Urine Color YELLOW Urine Clarity CLOUDY Urine pH 6.0 5-9 Urine Specific [place] >=1.030 1.016-1.022 Urine Protein 2+ H NEGATIVE Urine Glucose (UA) 2+ H NEGATIVE Urine Ketones NEGATIVE NEGATIVE Urine Nitrite NEGATIVE NEGATIVE Urine Bilirubin NEGATIVE NEGATIVE Urine Urobilinogen 0.2 < = 1.0 MG/DL Urine Leukocyte Esterase 1+ H NEGATIVE Urine RBC (Auto) 1+ H NEGATIVE Urine RBC 5-10 H /HPF Urine WBC TNTC H /HPF Urine Squamous Epithelial Cells 25-50 H /HPF Urine Crystals NONE /LPF Urine Bacteria MODERATE H /HPF Urine Casts NONE /LPF Urine Mucus NEGATIVE /LPF Urine Culture Indicated YES My Orders Orders - BRUNO PIERCE MD Cbc With Automated Diff (03/12/20 08:47) Comprehensive Metabolic Panel (03/12/20 08:47) Hs C Reactive Protein (03/12/20 08:47) Ua Culture If Indicated (03/12/20 08:47) Ondansetron Injection (Zofran Injectio (03/12/20 09:00) Lactated Ringers (Lr 1000 Ml Iv Solution (03/12/20 08:47) Ed Iv/Invasive Line Start (03/12/20 08:47) Fentanyl Injection (Sublimaze Injection (03/12/20 08:47) Ketorolac Injection (Toradol Injection) (03/12/20 08:47) Insulin (Regular) Human (Novolin R (Per (03/12/20 08:47) Fentanyl Injection (Sublimaze Injection (03/12/20 10:35) Urine Culture (03/12/20 10:38) Ceftriaxone For Iv Use (Rocephin For I (03/12/20 11:27) Lactic Acid Analyzer (03/12/20 11:30) Blood Culture (03/12/20 11:30) Medications Given in ED Current Medications Medications Dose Ordered Sig/Jasmina Route Start Time Stop Time Status Last Admin Dose Admin Ondansetron HCl 4 mg ONCE ONCE IVP 03/12/20 09:00 03/12/20 09:01 DC 03/12/20 09:14 4 MG Vital Signs/I&O 03/12/20 03/12/20 08:27 09:48 Temp 36.6 Pulse 92 Resp 18 B/P (MAP) 142/106 (118) Pulse Ox 93 O2 Delivery Room Air Nasal Cannula O2 Flow Rate 2.00 Capillary Refill : Less Than 3 Seconds Blood Pressure Mean: 118 Progress Note : Progress Note Seen and evaluated. IV, labs, UA, LR 1 L bolus, insulin 8 units IV, fentanyl 25 g IV and Toradol 10 mg IV with Zofran 4 mg IV ordered. Monitor patient. 1125: Blood cultures and lactic acid drawn as patient has significant urinary tract in fection. We will initiate Rocephin 1 g IV after blood cultures. Patient to be admitted. I discussed the case with Dr. Veronica and she accepts patient for admission, observation status. She will write orders. Follow this was discussed with the patient who agrees with the plan. Blood sugar improved after insulin. Patient did receive additional dose of fentanyl 50 g IV. Departure Communication (Admissions) Time/Spoke to Admitting Phy: 11:25 Impression Primary Impression: Urinary tract infection Qualified Codes: N30.00 - Acute cystitis without hematuria Additional Impression: Uncontrolled diabetes mellitus with hyperglycemia, with long-term current use of insulin Disposition: ADMITTED INPATIENT Condition: Stable Admissions Decision to Admit Reason: Admit from ER (General) Decision to Admit/Date: Mar 12, 2020 Time/Decision to Admit Time: 11:25 Departure-Patient Inst. Referrals: NO,LOCAL PHYSICIAN (PCP/Family) Primary Care Physician BRUNO PIERCE MD Mar 12, 2020 09:05
--- OUTSIDE RECORDS SUMMARY | 2020-03-12 09:05 | XMS REPORT | Encounter Summary ---
Author Author [facility] Organization [facility] Address Unknown Phone Unavailable Care Team Providers Care Manager Generation Name Role Phone Ebony Sharp MD PCP Encounter Details Care Team Description Date Type Department Rosy Herrmann, RN TELEPHONE ENCOUNTER 09/08/2019 Home Care Visit [facility] Home Care and [facility] [address] [facility] [address] [place] [address] Social History Date Tobacco Use [...] filedocumented in this encounter Additional Health Concerns Last Indicated Resolved Time Infection Onset Date 08/31/2019 09/17/2019 8:17 AM ADMINISTRATOR PESTICIDE RSV 08/31/2019 documented as of this encounter
--- OUTSIDE RECORDS SUMMARY | 2020-03-12 09:05 | XMS REPORT | Encounter Summary ---
Author Author [facility] Organization Address Unknown Phone Unavailable Care Team Providers Care Agricultural Engineering Technician Name Role Phone Ebony Sharp MD PCP Reason for Visit * HH Auth Cert Referred By Contact Referred To Contact Status Reason Specialty Diagnoses / Procedures Encounter Details Care Team Description Date Type Department Aury Louis RN SN OASIS TRANSFER W/OUT DC 09/18/2019 [facility] [address] [facility] [address] [place] [phone] Social History Date Tobacco Use Types Packs/Day [...] OASIS Transfer W/Out D c Discipline - Group Home Status Goals Interventions Problem Descriptio Start Date n Active 1 goal linked to scheduled/documented intervention 1 goal intervention scheduled/documented in this visit SN DM: Knowledge Deficit 09/09/2019 Related to Diabetes Disciplines: Group Home Active 1 goal linked to scheduled/documented intervention 1 goal intervention scheduled/documented in this visit SN : Knowledge Deficit 09/09/2019 Related to UTI Disciplines: Group Home Active 1 goal linked to scheduled/documented intervention [...] Goal: Directive yes Shared: Durable Power of Sewage Screen Operator Advance (DPOA), Health Care Power directives of Sewage Screen Operator (HCPOA) and obtained, Living Will or [...] Preference short of breath, go to s buddhism, visit family, Goal: cook own meals and bathe Shared: and dress without Patient/Ca assistance. regiver will progress towards goals and achieve them documented in this encounter
--- OUTSIDE RECORDS SUMMARY | 2020-03-12 09:05 | XMS REPORT | Encounter Summary ---
Author Author [facility] Organization [facility] Address Unknown Phone Unavailable Care Team Providers Care Building Consultant Name Role Phone Ebony Sharp MD PCP Encounter Details Care Team Description Date Type Department Delores Barton RN 09/07/2019 Telephone [facility] Primar y Care - [place] [address] [facility] [address] [place], [place] [phone] Social History Date Tobacco Use Types Packs/Day [...] Lacy Ramirez LPN - 09/08/2019 9:38 AM SHIP PROPELLER FINISHER Called and spoke with Linsey and advised we would for HH. PROPELLER FINISHER * Telephone Encounter - Ebony Sharp MD - 09/08/2019 7:11 AM SHIP PROPELLER FINISHER If seen within the last 90 days, it is OK to follow. She needs to have hospital follow up visit. PROPELLER FINISHER * Telephone Encounter - Delores Barton RN - 09/07/2019 5:30 PM SHIP PROPELLER FINISHER [facility] called asking if you would follow HH orders. Last OV 06/13/2019 If approved triage call [phone] to give verbal order. PROPELLER FINISHER documented in this encounter Plan of Treatment Not on filedocumented as of this encounter Visit Diagnoses Not on filedocumented in this encounter Additional Health Concerns Last Indicated Resolved Time Infection Onset Date 08/31/2019 09/17/2019 8:17 AM SHIP PROPELLER FINISHER RSV 08/31/2019 documented as of this encounter
--- OUTSIDE RECORDS SUMMARY | 2020-03-12 09:05 | XMS REPORT | Encounter Summary ---
Author Author [facility] Organization [facility] Address Unknown Phone Unavailable Care Team Providers Care Warehouse Administrative Assistant Name Role Phone Ebony Sharp MD PCP Reason for Visit * HH Auth Cert Referred By Contact Referred To Contact Status Reason Specialty Diagnoses / Procedures Encounter Details Care Team Description Date Type Department Karen Levin RN SN OASIS START OF CARE 09/09/2019 Home Care Visit [facility] Home Care and page [facility] [address] [facility] [address] [place] [address] Social History Date Tobacco Use [...] Comments Vital Sign 130/76 09/09/2019 4:39 PM SUPERVISOR WET END Blood Pressure 85 09/09/2019 4:39 PM SUPERVISOR WET END Pulse 36.8 C (98.2 F) 09/09/2019 4:39 PM SUPERVISOR WET END Temperature 18 09/09/2019 4:39 PM SUPERVISOR WET END Respiratory Rate 90% 09/09/2019 4:39 PM SUPERVISOR WET END Oxygen Saturation - - Inhaled Oxygen Concentration 95.3 kg (210 lb) 09/09/2019 4:39 PM SUPERVISOR WET END Weight 152.4 cm (5') 09/09/2019 4:39 PM SUPERVISOR WET END Height 41.01 09/09/2019 4:39 PM SUPERVISOR WET END Body Mass Index documented in this encounter Progress Notes * Dale Harris RN - 09/09/2019 4:00 PM SUPERVISOR WET END Could you assess if patient is interested in the telemonitor when you see her to perry? RVISOR WET END documented in this encounter Plan of Treatment Not on filedocumented as of this encounter Visit Diagnoses Not on filedocumented in this encounter Additional Health Concerns Last Indicated Resolved Time Infection Onset Date 08/31/2019 09/17/2019 8:17 AM SUPERVISOR WET END RSV 08/31/2019 documented as of this encounter Home Health Visit - Care Plan Visit Type - SN OASIS Start Of Care Discipline - Jail Status Goals Interventions Problem Descriptio Start Date n Active 1 goal linked to scheduled/documented intervention 1 goal intervention scheduled/documented in this visit SN COPD: Decreased 09/09/2019 Knowledge of Disease Management Disciplines: Jail Active 1 goal linked to scheduled/documented intervention 2 goal interventions scheduled/documented in this visit SN COPD: Decreased 09/09/2019 Knowledge of Oral and Inhaled Medications Disciplines: Jail Active 1 goal linked to scheduled/documented intervention 2 goal interventions scheduled/documented in this visit SN COPD: Decreased 09/09/2019 Knowledge of Secretion Management Disciplines: Jail Active 1 goal linked to scheduled/documented intervention 3 goal interventions scheduled/documented in this visit SN COPD: Shortness of 09/09/2019 Breath Disciplines: Jail Active 1 goal linked to scheduled/documented intervention 1 goal intervention scheduled/documented in this visit SN DM: Coping Alteration 09/09/2019 from Lifestyle Changes Disciplines: Jail Active 3 goals linked to scheduled/documented interventions 3 goal interventions scheduled/documented in this visit SN DM: Knowledge Deficit 09/09/2019 Related to Diabetes Disciplines: Jail Active 1 goal linked to scheduled/documented intervention 1 goal intervention scheduled/documented in this visit SN : Knowledge Deficit 09/09/2019 Related to UTI Disciplines: Jail Active 1 goal linked to scheduled/documented intervention 1 goal intervention scheduled/documented in this visit SN : Knowledge Deficit 09/09/2019 Related to Urinary Incontinence Disciplines: Jail Active 1 goal linked to scheduled/documented intervention 1 goal intervention scheduled/documented in this visit Shared: Advance 09/09/2019 Directives Disciplines: Jail, SHARED Active 1 goal linked to scheduled/documented intervention 2 goal interventions scheduled/documented in this visit Shared: Agency Parameters 09/09/2019 Disciplines: Jail, Physical Therapy, Occupational Therapy, [...] Patient instructed on complications of diabetes mellitus: Prison Complications of Diabetes (Romulo) and Diabetes and Heart Disease (Romulo). Patient response to teaching: teach back [...] Patient instructed in: Understanding Urinary Tract Infections (Krames), How to recognize signs and symptoms of [...] Goal: Directive yes Shared: Durable Power of Director Biostatistics Advance (DPOA), Health Care Power directives of Director Biostatistics (HCPOA) and obtained, Living Will or if not, Copy Obtained: yes requested Location of original 3 times by document: on file agency Shared: HH Notify Problem: Completed Physician if Patient is Shared: Outside of Established Agency Agency Parameters Parameters Description: Goal: HH clinician to notify Shared: HH physician if patient is to notify symptomatic [...] without getting short of breath, go to congregation, visit family, cook own meals and bathe [...] Di agnosis in M1021 / M1023. Review Santa Claus for completeness. To acknowledge/agree to these changes, [...]
--- OUTSIDE RECORDS SUMMARY | 2020-03-12 09:05 | XMS REPORT | Encounter Summary ---
Author Author [facility] Organization [facility] Address Unknown Phone Unavailable Care Team Providers Care Material Handler 2Nd Shift Name Role Phone Ebony Sharp MD PCP Reason for Referral * Surgical (Routine) Referred By Contact Referred To Contact Status Reason Specialty Diagnoses / [place] [address] [address], [place] [address] [place] [address] [place] [phone] Authorized Urology Diagnoses Nephrolithiasis P rocedures External Uro Surgery Encounter Details Care Team Description Date [place] [address] [place] [phone] Nephrolithiasis (Primary Dx) 09/14/2019 Orders Only [facility] [address] [place] [phone] Social History Date Tobacco Use Types Packs/Day [...] as of this encounter Plan of Treatment Order Schedule Name Type Priority Associated Diag noses 1 Occurrences starting 09/14/2019 until 03/14/2021 Urine Culture Microbiology Routine Nephrolithiasis documented as of this encounter Visit Diagnoses Diagnosis Nephrolithiasis Calculus of kidney documented in this encounter Additional Health Concerns Last Indicated Resolved Time Infection Onset Date 08/31/2019 09/17/2019 8:17 AM JUNIOR BUYER RSV 08/31/2019 documented as of this encounter
--- OUTSIDE RECORDS SUMMARY | 2020-03-12 09:05 | XMS REPORT | Encounter Summary ---
Author Author [facility] Organization [facility] Address Unknown Phone Unavailable Care Team Providers Care Entry Analyst Name Role Phone Ebony Sharp MD PCP Reason for Visit * HH Auth Cert Referred By Contact Referred To Contact Status Reason Specialty Diagnoses / Procedures Encounter Details Care Team Description Date Type Department Thania Perez PT CASE COMMUNICATION 09/19/2019 Home Care Visit [facility] [address] [facility] [address] [place] [phone] Social History Date Tobacco Use Types Packs/Day [...] Goal: Directive yes Shared: Durable Power of Apprentice Jockey Advance (DPOA), Health Care Power directives of Apprentice Jockey (HCPOA) and obtained, Living Will or if [...] Preference short of breath, go to s mu-ism, visit family, Goal: cook own meals and bathe Shared: and dress without Patient/Ca assistance. regiver will progress towards goals and achieve them documented in this encounter
--- OUTSIDE RECORDS SUMMARY | 2020-03-12 09:05 | XMS REPORT | Encounter Summary ---
Author Author [facility] Organization [facility] Address Unknown Phone Unavailable Care Team Providers Care Assistant Professor Of Radiology Name Role Phone Ebony Sharp MD PCP Reason for Visit * HH Auth Cert Referred By Contact Referred To Contact Status Reason Specialty Diagnoses / Procedures Encounter Details Care Team Description Date Type Department Aury Louis RN SN MISSED VISIT DOCUMENTATION 09/18/2019 Home Care Visit [facility] Home Care and page [facility] [address] [facility] [address] [place] [phone] Social History Date Tobacco Use Types Packs/Day [...] Aury Louis RN - 09/18/2019 4:30 PM BLOCKERS SKIVER Patient was admitted to the hospital yesterday with abdominal pain. She conseque ntly missed today's HH visit. Will be filling out transfer documentation. KERS SKIVER documented in this encounter Plan of Treatment Not on filedocumented as of this encounter Visit Diagnoses Not on filedocumented in this encounter Home Health Visit - Care Plan Visit Type - SN Missed Visit Documenta tion Discipline - Halfway Status Goals Interventions Problem Descriptio Start Date n Active 1 goal linked to scheduled/documented intervention 1 goal intervention scheduled/documented in this visit SN DM: Knowledge Deficit 09/09/2019 Related to Diabetes Disciplines: Halfway Active 1 goal linked to scheduled/documented intervention 1 goal intervention scheduled/documented in this visit SN : Knowledge Deficit 09/09/2019 Related to UTI Disciplines: Halfway Active 1 goal linked to scheduled/documented intervention 1 goal intervention scheduled/documented in this visit Shared: Advance 09/09/2019 Directives Disciplines: Halfway, SHARED Active 1 goal linked to scheduled/documented [...] Goal: Directive yes Shared: Durable Power of Multimedia Producer Advance (DPOA), Health Care Power directives of Multimedia Producer (HCPOA) and obtained, Living Will or if [...]
--- OUTSIDE RECORDS SUMMARY | 2020-03-12 09:05 | XMS REPORT | Encounter Summary ---
Author Author [facility] Organization [facility] Address Unknown Phone Unavailable Care Team Providers Care Putter In Name Role Phone Ebony Sharp MD PCP Reason for Visit * HH Auth Cert Referred By Contact Referred To Contact Status Reason Specialty Diagnoses / Procedures Encounter Details Care Team Description Date Type Department Shannon Rangel LPN SN MISSED VISIT DOCUMENTATION 09/13/2019 Home Care Visit [facility] Home Care and page [facility] 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 RSV 08/31/2019 documented as of this encounter Home Health Visit - Care Plan Visit Type - SN Missed Visit Documenta tion Discipline - Shelter Status Goals Interventions Problem Descriptio Start Date n Active 1 goal linked to scheduled/documented intervention 1 goal intervention scheduled/documented in this visit SN DM: Knowledge Deficit 09/09/2019 Related to Diabetes Disciplines: Shelter Active 1 goal linked to scheduled/documented intervention 1 goal intervention scheduled/documented in this visit SN : Knowledge Deficit 09/09/2019 Related to UTI Disciplines: Shelter Active 1 goal linked to scheduled/documented intervention 1 goal intervention scheduled/documented in this visit Shared: Advance 09/09/2019 Directives Disciplines: Shelter, SHARED Active 1 goal linked to scheduled/documented intervention 1 goal intervention scheduled/documented in this visit Shared: Diabetes: 09/09/2019 Knowledge Deficit Related to Diabetic Foot Care Disciplines: Shelter, Physical Therapy, Occupational Therapy, SHARED Active 1 goal linked to scheduled/documented intervention 1 goal intervention scheduled/documented in this visit Shared: Medication Management 09/09/2019 Management and Disciplines: Education Shelter, Physical of All Therapy, Occupational Home Therapy, SHARED Medication s Including Prescripti on and OTC. Active 1 goal linked to scheduled/documented intervention 1 goal intervention scheduled/documented in this visit Shared: Pain Management 09/09/2019 Disciplines: Shelter, Physical Therapy, Occupational Therapy, SHARED Active 1 goal linked to scheduled/documented intervention 1 goal intervention scheduled/documented in this visit Shared: Patient Strength, 09/09/2019 Goals and Care Preferences Disciplines: Shelter, Physical Therapy, Occupational Therapy, SHARED Goal Met? [...] Goal: Directive yes Shared: Durable Power of Assistant Analyst Advance (DPOA), Health Care Power directives of Assistant Analyst (HCPOA) and obtained, Living Will or [...] Preference short of breath, go to s mormonism, visit family, Goal: cook own meals and bathe Shared: and dress without Patient/Ca assistance. regiver will progress towards goals and achieve them documented in this encounter
--- OUTSIDE RECORDS SUMMARY | 2020-03-12 09:05 | XMS REPORT | Encounter Summary ---
Author Author [facility] Organization [facility] Address Unknown Phone Unavailable Care Team Providers Care Controller Instructor Name Role Phone Ebony Sharp MD PCP Reason for Visit * HH Auth Cert Referred By Contact Referred To Contact Status Reason Specialty Diagnoses / Procedures Encounter Details Care Team Description Date Type Department Shannon Rangel LPN SN HOME VISIT 09/15/2019 Home Care Visit [facility] Home Care and page [facility] [address] [facility] [address] [place] [phone] Social History Date Tobacco Use Types Packs/Day [...] Comments Vital Sign 112/80 09/15/2019 1:19 PM SMALL ORDER CUTTER Blood Pressure 76 09/15/2019 1:19 PM SMALL ORDER CUTTER Pulse 36.3 C (97.4 F) 09/15/2019 1:19 PM SMALL ORDER CUTTER Temperature 14 09/15/2019 1:19 PM SMALL ORDER CUTTER Respiratory Rate 92% 09/15/2019 1:19 PM SMALL ORDER CUTTER Oxygen Saturation - - Inhaled Oxygen Concentration - - Weight - - Height - - Body Mass Index documented in this encounter Plan of Treatment Not on filedocumented as of this encounter Visit Diagnoses Not on filedocumented in this encounter Additional Health Concerns Last Indicated Resolved Time Infection Onset Date 08/31/2019 09/17/2019 8:17 AM SMALL ORDER CUTTER RSV 08/31/2019 documented as of this encounter Home Health Visit - Care Plan Visit Type - SN Home Visit Discipline - Penitentiary Status Goals Interventions Problem Descriptio Start Date n Active 2 goals linked to scheduled/documented interventions 2 goal interventions scheduled/documented in this visit SN DM: Knowledge Deficit 09/09/2019 Related to Diabetes Disciplines: Penitentiary Active 1 goal linked to scheduled/documented intervention 1 goal intervention scheduled/documented in this visit SN : Knowledge Deficit 09/09/2019 Related to UTI Disciplines: Penitentiary Active 1 goal linked to scheduled/documented intervention [...] Patient instructed on complications of diabetes mellitus: Garland Maker Complications of Diabetes (Romulo). Patient response to [...] Goal: Directive yes Shared: Durable Power of Refining Machine Operator Advance (DPOA), Health Care Power directives of Refining Machine Operator (HCPOA) and obtained, Living Will [...]
--- OUTSIDE RECORDS SUMMARY | 2020-03-12 09:06 | XMS REPORT | Encounter Summary ---
Author Author [facility] Organization [facility] Address Unknown Phone Unavailable Care Team Providers Care Manager Epic Name Role Phone Ebony Sharp MD PCP Reason for Visit * Auth/Cert Referred By Contact Referred To Contact Status Reason Specialty Diagnoses / Procedures Diagnoses Kidney stone Pyelonephritis Sepsis, due to unspecified organism, unspecified whether acute organ dysfunction present (HCC) Encounter Details Care Team Description Date Type Department Ariel Hernandez MD [address] [place] [address] [phone] Estefany Rodriguez RN DOLLY DRIVER [address] [place], [place] [phone] 08/30/2019 Anesthesia [facility] [address] [place], [place] [phone] Anesthesia Record Responsible Anesthesiologist Anesthesia Start Time [...] 2100 08/30/19 1608 by Thad Bruce RN DOLLY DRIVER Non-Surgic Date: 08/30/19; Time: 153; Placed By: 08/30/19 153 by Thad lyons Airway Director Of Distance Learning; Device: LMA; Size: 4; Michael sarmiento RN DOLLY DRIVER Placement Verified By: Capnometry, Auscultation; Removal Date: [...] Ariel Hernandez MD - 08/30/2019 6:00 PM IP ARCHITECT Anesthesia Post Evaluation Procedure(s):CYSTOSCOPY, WITH LEFT RETROGRADE [...] SpO2 98 % filed at 08/30/2019 1900 ARCHITECT * Anesthesia Preprocedure Evaluation - Ariel Hernandez MD - 08/30/2019 3:01 PM IP ARCHITECT Anesthesia Evaluation No history of anesthetic complications [...] and supraglottic airway device Plan discussed with DOLLY DRIVER. Anesthetic plan and risks discussed with patient. Post-operative analgesia: intended admin of post-op opioid Recovery plan: PACU Risk factors for PONV: female and non smoker PONV Risk: moderate Plan for PONV Prophylaxis to include: ondansetron Notes urosepsis ARCHITECT documented in this encounter Plan of Treatment Not on filedocumented as of this encounter Visit Diagnoses Not on filedocumented in this encounter Administered Medications Action Date Dose Rate Site Medication Order MAR Action 08/30/2019 3:46 PM IP ARCHITECT 25 mcg fentaNYL (SUBLIMAZE) injection Given Intravenous, As needed, Starting 08/30/19 at 1537, Anesthesia Intra-op 25 mcg Given 08/30/2019 3:37 PM IP ARCHITECT 08/30/2019 3:51 PM IP ARCHITECT lactated ringers infusion New Bag 50 mL/hr, Intravenous, Continuous, Starting 08/30/19 at 1506, For 48 hours, Pre-op New Bag 08/30/2019 3:24 PM IP ARCHITECT 08/30/2019 3:30 PM IP ARCHITECT 50 mg lidocaine (pf) (XYLOCAINE-MPF) 20 mg/mL Given (2 %) injection Intravenous, As needed, Starting 08/30/19 at 1530, Anesthesia Intra-op 08/30/2019 3:53 PM IP ARCHITECT 4 mg ondansetron (ZOFRAN) injection Given Intravenous, As needed, Starting 08/30/19 at 1553, Anesthesia Intra-op 08/30/2019 3:30 PM IP ARCHITECT 140 mg propofol (DIPRIVAN) injection Given Intravenous, As needed, Starting 08/30/19 at 1530, Anesthesia Intra-op documented in this encounter
--- OUTSIDE RECORDS SUMMARY | 2020-03-12 09:06 | XMS REPORT | Encounter Summary ---
Author Author [facility] Organization [facility] Address Unknown Phone Unavailable Care Team Providers Care Drum Barker Operator Name Role Phone Ebony Sharp MD PCP Reason for Referral * Home Health Care (Routine) Referred By Contact Referred To Contact Status Reason Specialty Diagnoses / Procedures Cecilia Israel DO [address] [place] [address] [facility] [address] [facility]3] [address] [place] [address] Closed Specialty Services Home Health Diagnoses Required Services [...] Description Date Type Department Dirk Valencia MD [address] [place], [place] [id number] Cecilia Israel DO [address] [place] [address] [phone] Chuckie Short MD [address] [place] [address] [phone] Kidney stone (Primary Dx); Pyelonephritis; Sepsis, due to unspecified organism, unspecified whether acute organ dysfunction present (HCC); Ureteral stone; Severe sepsis (HCC); Ureteral stone with hydronephrosis; Acute kidney injury (HCC); left Ureteral stone with hydronephrosis; Severe sepsis (HCC)/ pyelonephritis 08/30/2019 [facility] 09/07/2019 [address] [place] [address] Social History Date Tobacco Use Types Packs/Day [...] Comments Vital Sign 135/92 09/07/2019 12:11 PM LAW WRITER Blood Pressure 79 09/07/2019 1:25 PM LAW WRITER Pulse 36.7 C (98.1 F) 09/07/2019 12:11 PM LAW WRITER Temperature 14 09/07/2019 1:25 PM LAW WRITER Respiratory Rate 98% 09/07/2019 1:25 PM LAW WRITER Oxygen Saturation - - Inhaled Oxygen Concentration 101 kg (222 lb 10.6 oz) 09/07/2019 6:04 AM LAW WRITER Weight 152.4 cm (5') 08/30/2019 5:56 PM LAW WRITER Height 43.49 08/30/2019 5:56 PM LAW WRITER Body Mass Index documented in this encounter Discharge Summaries * Cecilia Israel DO - 09/07/2019 10:48 AM LAW WRITER [facility] - [facility]charge Summary Patient Name: Isiah Do [facility] Account No: [id number] Date of : 1950 Date of Admission: [...] activity as tolerated Scheduled Follow Up Appointments/Studies [facility] Providers): Future Appointments Date Time Provider Department Center 09/09/2019 To Be Determined Karen Levin RN [facility] None 10/04/2019 1:[address] [place] 10/11/2019 1:30 PM Darin Huber MD INDEP [facility] Additional [facility]charge Follow Up: Dr. Ebony Sharp [...] 2 CAPSULES BY MOUTH THREE TIMES DAILY WAED-EDGE-AKFR(VIT A,C-BIOTIN) ORAL Oral, Daily insulin glargine 100 [...] the final report. READING SITE: [facility] Cardiac Studies during this encounter: No results [...] in this summary note. Cecilia Israel DO [facility] . WRITER documented in this encounter Discharge Instructions * Attachments The following attachments cannot be sent through Care Everywhere.* FLUCONAZOLE ORAL TABLET (CENTRAL AFRICAN) * Hydrochlorothiazide, HCTZ capsules or tablets (Vincentian) * Lactobacillus Oral formulations (Vincentian) * OXYCODONE HYDROCHLORIDE, ACETAMINOPHEN ORAL TABLET (CENTRAL AFRICAN) * PREDNISONE ORAL TABLET (CENTRAL AFRICAN) * Pyelonephritis, Discharge Instructions for (Vincentian) * Urinary Tract Infections in Women (Vincentian) * Infection, Respiratory Syncytial Virus (RSV) (Vincentian) * KIDNEY STONE W/ COLIC (CENTRAL AFRICAN) * Stents, Ureteral (Vincentian) documented in this encounter Medications at Time [...] A/vit Take by mouth 0 C/biotin/zinc/copper daily. ([id number],VIT A,C-BIOTIN, ORAL) 09/07/2019 09/13/2019 fluconazole (DIFLUCAN) Take 1 tablet 6 tablet 0 200 MG tablet (200 mg total) by mouth daily. 06/26/2019 12/24/2019 amitriptyline (ELAVIL) 25 Take 1 [...] of this encounter Progress Notes * Cecilia Israel DO - 09/06/2019 5:22 PM LAW WRITER [facility] Hospitalist - Progress Note Patient Name: Isiah Benítez Account No: [id number] Date of : 1950 Date of Admission: [...] re results (as indicated), current inpatient medications, packaging sales consultant notes and s upport staff notes [...] HCTZ Severe obesity (BMI >= 40) ([facility]) - Counseled on weight loss Acute vaginitis Fluconazole 150mg qOD X 3 days Type 2 diabetes mellitus with hyperglycemia, with long-term current use of insul in ([facility]) Resume home basal with level V SSI See my orders for additional details regarding this patients treatment plan. Room: [address] [place] [address] Diet: Diet-Low Fat/Chol, 2gm Na, Consistent Carbohydrate [...] prochlorperazine OR prochlorpe razine, sodium chloride Cecilia Jhonatan, DO [facility] . WRITER * Arabella Irwin RN ANP - 09/06/2019 9:25 AM LAW WRITER [facility] Urology Progress Note Date: 09/06/2019 Subjective: [...] within the last 7 days Lab Units 09/06/19 0328 09/05/19 02009/03/19 0447 WBC TH/uL 9.44 9.89 10.60 HEMOGLOBIN g/dL 11.8* 11.1* 11.0* HEMATOCRIT % 36 34* 34* PLATELET COUNT TH/uL 215 179 121* Last 3 BMP Results (within the last 7 days): Most Recent Result within the last 7 days Lab Units 09/06/19 0328 09/05/19 02009/03/19 0447 SODIUM MEQ/L 137 139 141 [...] tenderness Assessment/Plan: Principal Problem: Severe sepsis ([facility])/ pyelonephritis Active Problems: Pyelonephritis left Ureteral stone with hydronephrosis COPD exacerbation ([facility])/ Acute on chronic hypoxemic respiratory failure Acute on chronic respiratory failure ([facility]) Type 2 diabetes mellitus with hyperglycemia, with long-term current use of ins ulin ([facility]) Hematemesis Acute vaginitis Severe obesity (BMI >= 40) ([facility]) Hypertension POD#7s/p cystoscopy andleft ureteral [...] any questions/concerns. Arabella Irwin 09/06/2019 9:25 AM WRITER * Cecilia Israel, - 09/05/2019 4:37 PM LAW WRITER [facility] Hospitalist - Progress Note Patient Name: Isiah Benítez Account No: [id number] Date of : 1950 Date of Admission: [...] re results (as indicated), current inpatient medications, packaging sales consultant notes and s upport staff notes [...] HCTZ Severe obesity (BMI >= 40) ([facility]) - Counseled on weight loss Acute vaginitis Fluconazole 150mg qOD X 3 days Type 2 diabetes mellitus with hyperglycemia, with long-term current use of insul in ([facility]) Resume home basal with level V SSI See my orders for additional details regarding this patients treatment plan. Room: [address] [place] [address] Diet: Diet-Low Fat/Chol, 2gm Na, Consistent Carbohydrate [...] Nightly insulin lispro 3-18 Units Subcutaneous Q6H TYUET ipratropium-albuterol 3 mL Inhalation 4x daily lactobacillus [...] prochlorperazine, sodium ch loride Cecilia Israel DO [facility] . WRITER * Arabella Irwin RN ANP - 09/05/2019 9:23 AM LAW WRITER [facility] Urology Progress Note Date: 09/05/2019 Subjective: [...] tenderness Assessment/Plan: Principal Problem: Severe sepsis ([facility])/ pyelonephritis Active Problems: Pyelonephritis left Ureteral stone with hydronephrosis COPD exacerbation ([facility])/ Acute on chronic hypoxemic respiratory failure Acute on chronic respiratory failure ([facility]) Type 2 diabetes mellitus with hyperglycemia, with long-term current use of ins ulin ([facility]) Hematemesis Acute vaginitis Severe obesity (BMI >= 40) ([facility]) POD#6s/p cystoscopy andleft ureteral stent [...] from Hospitalist Arabella Irwin 09/05/2019 9:24 AM WRITER * Arabella Irwin RN ANP - 09/04/2019 4:09 PM LAW WRITER [facility] Urology Progress Note Date: 09/04/2019 Subjective: [...] long-term current use of ins ulin ([facility]) Hematemesis Acute vaginitis Severe obesity (BMI >= 40) ([facility]) POD#5s/p cystoscopy andleft ureteral stent [...] from Hospitalist Arabella Irwin 09/04/2019 4:09 PM WRITER * Cecilia Israel DO - 09/04/2019 2:33 PM LAW WRITER [facility] Hospitalist - Progress Note Patient Name: Isiah Do Board Account No: [id number] Date of : 1950 Date of Admission: [...] re results (as indicated), current inpatient medications, packaging sales consultant notes and s upport staff notes with pertainent findings noted within the assessment/plan. Assessment/Plan Ms. Isiah Benítez is a 69 y.o. female who was admitted on 08/30/2019 with Hemateme sis and Dizziness. Problems addressed with today's visit include: * Severe sepsis ([facility])/ pyelonephritis Sepsis resolved, s/p stent placement, ballard left in place, improving. - Will need to follow up with urology in 2-3 weeks COPD exacerbation ([facility])/ Acute on chronic hypoxemic respiratory failure +RSV - Taper steroids - Titrate off O2 as able Hematemesis Hb remains stable - Cont PPI Acute on chronic respiratory failure ([facility]) - Due to COPD & RSV left Ureteral stone with hydronephrosis S/p left ureteral stent placement by Urology on 08/30/19. F/u for definitive treat ment Flomax, strain urine Severe obesity (BMI >= 40) ([facility]) - Counseled on weight loss Acute vaginitis Fluconazole 150mg qOD X 3 days Type 2 diabetes mellitus with hyperglycemia, with long-term current use of insul in ([facility]) Resume home basal with level V SSI See my orders for additional details regarding this patients treatment plan. Room: [address] [place] [address] Diet: Diet-Low Fat/Chol, 2gm Na, Consistent Carbohydrate [...] prochlorperazine, sodium ch loride Cecilia Israel DO [facility] . WRITER * Chuckie Short MD - 09/03/2019 12:52 PM LAW WRITER [facility] - Progress Note Patient Name: Isiah Do Board Account No: [id number] Date of : 1950 Date of Admission: [...] long-term current use of insul in ([facility]) Resume home basal with level V SSI See my orders for additional details regarding this patients treatment plan. Room: [address] [place] [address] Diet: Diet-Low Fat/Chol, 2gm Na, Consistent Carbohydrate [...] OR prochlorperazine, sodium chloride Chuckie Short MD [facility] . High med decision making. WRITER * Judson Hernandez MD - 09/03/2019 10:09 AM LAW WRITER [facility] Urology Progress Note Date: 09/03/2019 Subjective: [...] clear Assessment/Plan: Principal Problem: Severe sepsis ([facility])/ pyelonephritis Active Problems: Pyelonephritis left Ureteral stone with hydronephrosis COPD exacerbation ([facility])/ Acute on chronic hypoxemic respiratory failure Acute on chronic respiratory failure ([facility]) Type 2 diabetes mellitus with hyperglycemia, with long-term current use of ins ulin ([facility]) Hematemesis Acute vaginitis Severe obesity (BMI >= 40) ([facility]) POD#4s/p cystoscopy andleft ureteral stent for5 mm left proximal ureteral calculus, bilateral hydronephrosis, acute renal failure, andurosepsis - Currently afebrile and stable. Urine and blood cultures growing Steven. Con tinue Rocephin and Micafungin. Awaiting final culture results. - Renal sono 08/31 confirmed resolution of bilateral hydronephrosis. Nib Finisher remains normal at 0.8 today. Good UOP - Left flank pain/bladder pressure likely from stent/Ballard. Continue supportiv e care. Currently on Detrol LA and PRN [place]/Fentanyl. Will plan VT in AM sandy . - Left URS as outpt once recovered - Continue inpatient care - Appreciate assistance from Hospitalist and ICU physicians Judson Hernandez 09/03/2019 10:09 AM WRITER * Judson Hernandez MD - 09/02/2019 11:05 AM LAW WRITER [facility] Urology Progress Note Date: 09/02/2019 Subjective: [...] clear Assessment/Plan: Principal Problem: Severe sepsis ([facility])/ pyelonephritis Active Problems: Pyelonephritis left Ureteral stone with hydronephrosis COPD exacerbation ([facility])/ Acute on chronic hypoxemic respiratory failure Acute on chronic respiratory failure ([facility]) Type 2 diabetes mellitus with hyperglycemia, with long-term current use of ins ulin ([facility]) Hematemesis Acute vaginitis Severe obesity (BMI >= 40) ([facility]) POD#3 s/p cystoscopy and left ureteral stent for 5 mm left proximal ureteral rosalind culus, bilateral hydronephrosis, acute renal failure, and urosepsis - Currently afebrile and stable. Urine and blood cultures growing Steven. Con tinue Rocephin and Micafungin. Awaiting final culture results. - Renal sono 08/31 confirmed resolution of bilateral hydronephrosis. Nib Finisher remains normal at 1.0 today. Good UOP -Left flank pain/bladder pressure likely from stent/Ballard. Continue supportive care. Currently on Detrol LA and PRN [place]/Fentanyl -Left URS as outpt once recovered - Continue inpatient care - Appreciate assistance from Hospitalist and ICU physicians Judson Hernandez 09/02/2019 11:05 AM WRITER * Chuckie Short MD - 09/02/2019 8:04 AM LAW WRITER [facility] - Progress Note Patient Name: Isiah Do Board Account No: [id number] Date of : 1950 Date of Admission: [...] ballard when urology allows. COPD exacerbation ([facility])/ Acute on chronic hypoxemic respiratory [...] long-term current use of insul in ([facility]) Resume home basal with level V SSI See my orders for additional details regarding this patients treatment plan. Room: [address] [place] [address] Diet: Diet-Low Fat/Chol, 2gm Na, Consistent Carbohydrate [...] Oral Daily enoxaparin 40 mg Subcutaneous Q24H [facility] fluticasone furoate-vilanterol 1 puff Inhalation Daily gabapentin [...] OR prochlorperazine, sodium chloride Chuckie Short MD [facility] . High med decision making. WRITER * Chuckie Short MD - 09/01/2019 11:10 AM LAW WRITER [facility] Hospitalist - Progress Note Patient Name: Isiah Do Board Account No: [id number] Date of : 1950 Date of Admission: [...] today's visit include: * Severe sepsis ([facility])/ pyelonephritis Ureteral obstructing stone, s/p [...] long-term current use of insul in ([facility]) Resume home basal with level V SSI See my orders for additional details regarding this patients treatment plan. Room: [address] [place] [address] Diet: Diet-Low Fat/Chol, 2gm Na, Consistent Carbohydrate [...] OR prochlorperazine, sodium chloride Chuckie Short MD [facility] . High med decision making. WRITER * Arabella Irwin RN ANP - 09/01/2019 8:50 AM LAW WRITER [facility] Urology Progress Note Subjective: Interval [...] Ureteral stone with hydronephrosis COPD exacerbation ([facility])/ Acute on chronic hypoxemic respiratory failure Acute on chronic respiratory failure ([facility]) Type 2 diabetes mellitus with hyperglycemia, with long-term current use of ins ulin ([facility]) Hematemesis Acute vaginitis Severe obesity (BMI >= 40) ([facility]) LOS: 2 days POD#2 s/p cystoscopy and left ureteral stent for 5 mm left proximal ureteral rosalind culus, bilateral hydronephrosis, acute renal failure, and urosepsis - Renal U/S film and report reviewed. This confirmed resolution of bilateral hy dronephrosis. Nib Finisher improved to 1.1 and good UOP -Continue abx. Currently on Rocephin and Micafungin. Await cx's -Left flank pain likely from stent. Continue supportive care. Currently on Det rol LA and PRN [place]/Fentanyl -Left URS as outpt once recovered - Continue inpatient care - Appreciate assistance from Hospitalist and ICU physicians Electronically signed by Arabella Iwrin 09/01/2019 8:50 AM WRITER Associated attestation - Judson Hernandez MD - 09/01/2019 10:15 PM LAW WRITER I agree with Arabella Irwin NP's findings, assessment and plan as documented i n the note below. Judson Hernandez * Sharona English, PharmD - 08/31/2019 6:47 PM LAW WRITER Provider Contacted: Chuckie Short Date of Contact: 08/31/19 Time of Contact: [phone] Results for orders placed or performed during [...] Marleen Cleaning MD - 08/31/2019 6:39 PM LAW WRITER Ms. Isiah Benítez is a 69 y.o. [...] vaginitis Severe obesity (BMI >= 40) (HCC) eICU was called by RN regarding lab notifying them that patient is RSV +. Precau tions in place. Will continue monitoring while in the ICU. Marleen Snyder MD, 08/31/2019, 6:39 PM WRITER * Chuckie Short MD - 08/31/2019 2:37 PM LAW WRITER [facility] Hospitalist - Progress Note Patient Name: Isiah Benítez Account No: [id number] Date of : 1950 Date of Admission: [...] today's visit include: * Severe sepsis ([facility])/ pyelonephritis Likely ureteral obstructing stone, s/p cystoscopy, stent placement, ballard left i n place, improving. COPD exacerbation ([facility])/ Acute on chronic hypoxemic respiratory failure Exp wheeze, still requiring bipap on and off, check RVP, increase steroids to 40 mg daily, add scheduled nebs. resp precuations for now. To remain in ICU till no t dependent on bipap. Hematemesis IV PPI BID for now. Trend cbc. Of note, hx of being a yazidism left Ureteral stone with hydronephrosis S/p left ureteral stent placement by Urology on 08/30/19. F/u for definitive treat ment Flomax, strain urine Acute vaginitis Presume candidal. Fluconazole 150mg qOD X 3 doses ordered. Type 2 diabetes mellitus with hyperglycemia, with long-term current use of insul in ([facility]) Resume home basal with level V SSI See my orders for additional details regarding this patients treatment plan. Room: [facility]/[address] [place] [address] Diet: Diet-Low Fat/Chol, 2gm Na, Consistent Carbohydrate [...] OR prochlorperazine, sodium chloride Chuckie Short MD [facility] . High med decision making. WRITER * Janet Aragon MD - 08/31/2019 8:22 AM LAW WRITER [facility] Urology Progress Note Subjective: Interval [...] cloudy Assessment/Plan: Principal Problem: Severe sepsis ([facility]) Active Problems: Pyelonephritis left Ureteral stone with hydronephrosis COPD (chronic obstructive pulmonary disease) ([facility]) Acute on chronic respiratory failure ([facility]) Type 2 diabetes mellitus with hyperglycemia, with long-term current use of ins ulin ([facility]) Hematemesis Acute vaginitis Sinus tachycardia Severe obesity (BMI >= 40) ([facility]) LOS: 1 day POD#1 s/p [...] signed by Janet Aragon 08/31/2019 8:22 AM WRITER * Ciaran Newman MD - 08/31/2019 2:36 AM LAW WRITER Ms. Isiah Benítez is a 69 y.o. year-old female who presented on 08/30/2019 with Principal Problem: Severe sepsis ([facility]) Active Problems: Pyelonephritis left Ureteral stone with hydronephrosis COPD (chronic obstructive pulmonary disease) ([facility]) Acute on chronic respiratory failure ([facility]) Type 2 diabetes mellitus with hyperglycemia, with long-term current use of ins ulin ([facility]) Hematemesis Acute vaginitis Sinus tachycardia [...] ICU. Ciaran Newman MD, 08/31/2019, 2:37 AM WRITER * Courtney Brown, RT - 08/30/2019 6:31 PM LAW WRITER Respiratory Care Services Initial RATE Note 08/30/2019 [...] No data recorded No data recorded [employer] providing the home oxygen/equipment is: No data recorded The patient states she does not use assistive ventilatory support devices at [facility]. Assistive ventilatory support devices include: No data recorded Settings are: No data recorded @LASTFLOW([id number]])@ No data recorded No data recorded No data recorded [employer] providing the home ventilator equipment is: [...] data recorded No data recorded Order/Plan Summary MARTINEZ Acevedo. BIPAP Based on the RATE Criteria being met, the following RATE Protocols will be used: RATE Adult Medication Therapy Medical Protocol RATE Adult Oxygen Therapy Medical Protocol RATE Home CPAP, BiPAP, Mechanical Ventilation Medical Protocol WRITER documented in this encounter H&P Notes * Jun Licona MD - 08/30/2019 5:38 PM LAW WRITER [facility] Hospitalist - History & Physical Patient Name: Isiah Benítez Account No: [id number] Date of : 1950 Date of Admission: [...] ankle. COPD (chronic obstructive pulmonary disease) ([facility]) Depression Draining postoperative wound 08/08/2016 Endometriosis Essential hypertension Fractures [address] in Left ankle MATA (generalized anxiety disorder) 09/24/2015 Hernia of abdominal cavity Kidney stone Mixed hyperlipidemia 09/24/2015 Morbid obesity due to excess calories ([facility]) 07/10/2016 On home oxygen therapy 2L - usually needs if has an exerbation of COPD, or resp illness SASHA on CPAP Osteoarthritis Refusal of blood transfusions as patient is [employer] Sleep apnea CPAP use Type 2 diabetes mellitus with hyperglycemia, with long-term current use of i nsulin ([facility]) 06/29/2016 Urinary calculi Urinary incontinence [...] STENT PLACEMENT; Surgeon: Darin Huber MD; [place] [facility] [place]; Service: Urology; Laterality: Left; CYSTOSCOPY, RETROGRADE PYELOGRAM, URETEROSCOPY, LASERLITHOTRIPSY, WITH URETE RAL STENT PLACEMENT Left 08/02/2019 Procedure: CYSTOSCOPY, LEFT RETROGRADE PYELOGRAM, LEFT URETEROSCOPY, LASER LITH OTRIPSY, LEFT URETERAL STENT EXCHANGE; Surgeon: Darin Huber MD; [place] [facility] [place]; Service: Urology; Laterality: Left; HAND SURGERY Left 03/09/2019 [facility] HERNIA REPAIR HYSTERECTOMY OOPHORECTOMY REMOVAL, HARDWARE, FOOT OR ANKLE Left 04/09/2017 Procedure: LEFT ANKLE REMOVAL OF HARDWARE WITH REVISION LEFT ANKLE ARTHRODESIS; Surgeon: Adelaida Olivas MD; [place] [facility] [place]; Service: Orthopedics; Later ality: Left; REPAIR, INCISIONAL HERNIA, LAPAROSCOPIC, USING MESH N/A 05/25/2018 Procedure: LAPAROSCOPIC INCISIONAL HERNIA REPAIR WITH MESH; Surgeon: Medardo Tate MD; [place] [facility] [place]; Service: General; Laterality: [...] joann es a day. vit A/vit C/biotin/zinc/copper ([id number],VIT A,C-BIOTIN, ORAL) Take by tanna th daily. [...] results (as indicated), current inpatient medications and instructional support assistant notes with pertainent findings noted within the assessment/plan. I have personally re viewed and updated the patient's past medical history, past surgical history, fa carmelo history and social history as appropriate. Assessment/Plan Ms. Isiah Benítez is a 69 y.o. female who was admitted on 08/30/2019 with complain t of Hematemesis and Dizziness. * Severe sepsis ([facility]) Meets w HR, WBC, UTI, [...] cbc. Of note, hx of being a yazidism Acute on chronic respiratory failure ([facility]) Sent from PACU on bipap. Wean back to baseline 3L NC and nighttime CPAP for sasha COPD (chronic obstructive pulmonary disease) ([facility]) Was getting rx for copd exacerbation--taper steroids, continue bronchodilators, supportive care Sinus tachycardia Fluid resuscitate, resume home bb, monitor Acute vaginitis Presume candidal. Fluconazole 150mg qOD X 3 doses ordered. Type 2 diabetes mellitus with hyperglycemia, with long-term current use of insul in ([facility]) Resume home basal with level [...] as note d above. Jun Licona MD [facility] . WRITER documented in this encounter Consult Notes * Delores Mckinley RN - 08/31/2019 5:30 PM LAW WRITER Associated Order(s): CONSULT - VASCULAR ACCESS TEAM [...] Dressing oozing Delores Mckinley 08/31/2019 5:30 PM WRITER * Arabella Irwin RN ANP - 08/30/2019 2:33 PM LAW WRITER [facility] UROLOGY CONSULT NOTE Patient: Isiah [...] mental status. Labs rev iewed. WBC 12.26K. Nib Finisher 1.2. Lactate 3.9. She had a fever [...] 08/08/2016 Allergic rhinitis Anxiety Bronchitis, chronic ([facility]) Cataract 2011, 2012 bilat cateract surgery Chronic pain disorder back, ribs, and ankle. 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 E11.9 10 mL 5 insulin syringe ([employer] ULTRA-FINE) 0.3 mL 31 gauge x 5/16 [...] day. 30 tablet 0 vit A/vit C/biotin/zinc/copper (MEQI-MBUK-HHBB,VIT A,C-BIOTIN, ORAL) Take by mouth daily. ALLERGIES: [...] file Gets together: Not on file Attends adventist service: Not on file Active member of [...] 02:14 PM Positive (A) Negative Final Specific Novelty, UA Date/Time Value Ref Range Status 08/30/2019 [...] 3. Hepatomegaly and hepatic steatosis. READING SITE: [facility] Xr Chest Single View Frontal Result Date: 08/30/2019 Mild bibasilar subsegmental atelectasis. No discrete focal consolidation. READING SITE: [facility] Xr Chest Single View Frontal Result Date: 08/28/2019 Stable bandlike opacity in the left midlung zone likely fibrosis/scarring. No discrete focal consolidation. READING SITE: [facility] ASSESSMENT/PLAN: 1. Left proximal ureteral calculus [...] Mrs. Benítez. We will continue to follow melissa dick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 [place] [facility] [place] [address] Accessi on#: [id number] Procedure Requested: [id number] XR CHEST SINGLE VIEW FRONTAL Reason for [...] Rad Results In - 09/06/2019 1:42 PM LAW WRITER Patient: ISIAH BENÍTEZ Sex#: F #: 1950 Jose#: [id number] Location: [address] [address] Procedure Requested: [id number] XR CHEST SINGLE VIEW FRONTAL Reason for [...] the final report. READING SITE: [facility] Performing Organization Address [facility] one Number LEVI * Basic Metabolic Panel (09/06/2019 3:28 AM LAW WRITER) Only the most recent of 6 results within the time period is included. Sodium 137 133 - 147 MEQ/L [facility] Potassium 3.7 3.5 - 5.3 MEQ/L [facility] Chloride 93 (L) 96 - 112 MEQ/L [facility] Carbon Dioxide 40 (H) 20 - 32 MEQ/L [facility] Anion Gap 4 (L) 5 - 17 [facility] Calcium 9.1 8.4 - 10.5 mg/dL [facility] Glucose 111 (H) 70 - 100 mg/dL [facility] Blood Urea 21 7 - 26 mg/dL [facility]'s Nitrogen [facility] Creatinine 0.7 0.4 - 1.1 mg/dL [facility] eGFR Female AA 100 60 - 200 [facility] mL/min/1.73sq [facility] eGFR Female 83 60 - 200 [facility] Non-AA mL/min/1.73sq [facility] Specimen Blood Performing Organization Address [facility] one Number [facility] [address] [place] [address] [facility]onel's [facility] [address] [facility]'s [facility]'s [place], [place] [address] [facility] * Complete Blood Count (09/06/2019 3:28 AM LAW WRITER) Only the most recent of 6 results within the time period is included. WBC 9.44 4.00 - 11.00 TH/uL [facility] RBC 3.64 (L) 4.00 - 5.00 MIL/uL [facility] Hemoglobin 11.8 (L) 12.0 - 15.0 g/dL [facility] Hematocrit 36 36 - 45 % [facility] MCV 99 80 - 99 fL [facility] MCH 32 27 - 34 pg [facility] MCHC 33 32 - 36 % [facility] RDW 13.4 11.5 - 14.5 % [facility] Platelet Count 215 140 - 400 TH/uL [facility] MPV 10.3 9.4 - 12.3 fL [facility] Nucleated RBCs 0 0 - 0 /100 [facility] Specimen Blood Performing Organization Address City/State/Zipcode Ph one Number [facility] [address] [place] [address] [facility] [address] [facility] [place] [address] [facility] * Culture, Blood (09/04/2019 11:32 AM LAW WRITER) Only the most recent of 4 results within the time period is included. Culture Result No Growth at 5 days [facility] Specimen Blood Narrative Performed At 20ml rh [facility]IES Performing Organization Address City/State/Zipcode Ph one Number [facility] [address] [place] [address] LABORATORIES [facility] [address] [place] [address] * Troponin (09/03/2019 9:00 PM LAW WRITER) Only the most recent of 4 results within the time period is included. Troponin <0.01 0.00 - 0.03 ng/mL [facility] Comment: Cedric Ramos Troponin Value [facility] Interpretation 0.00 - 0.03 Healthy 0.04 - 0.12 Increased Cardiac Risk >0.12 Myocardial Infarction Troponin may not become elevated until 6 to 8 hours after onset of symptoms. Specimen Blood Performing Organization Address City/State/Zipcode Ph one Number [facility] [address] [facility] [place] [address] [facility] [address] [facility] [place] [address] [facility] * Electrocardiogram (ECG) (09/03/2019 8:23 PM LAW WRITER) Only the most recent of 2 results within the time period is included. QRSd 102 TRACEMASTER QT 388 TRACEMASTER QTC 481 TRACEMASTER ECGHR 92 TRACEMASTER ECGPR 148 TRACEMASTER Specimen Narrative Performed At [facility] Test Date: 2019-09-03 Pat Name: ISIAH BENÍTEZ Department: [facility] Room: [facility] Gender: Female Pension Agent: [id number] : 1950 Requested By: CHUCKIE SHORT Order Number: [id number] Reading MD: Omar [place] Measurements Intervals Sedan Rate: 92 P: 59 CT: 148 QRS: 38 QRSD: 102 T: 50 QT: 388 QTc: 481 Interpretive Statements SINUS RHYTHM Electronically Signed On 09-15-2019 11:2 3:15 LAW WRITER by Omar [place] Procedure Note Interface, External Ris In - 09/15/2019 11:23 AM LAW WRITER [facility] Test Date: 2019-09-03 Pat Name: ISIAH BENÍTEZ Department: SI Room: [facility] Gender: Female Pension Agent: [id number] : 1950 Requested By: CHUCKIE SHORT Order Number: [id number] Reading : Omar [place] Measurements Intervals Sedan Rate: 92 P: 59 CT: 148 QRS: 38 QRSD: 102 T: 50 QT: 388 QTc: 481 Interpretive Statements SINUS RHYTHM Electronically Signed On 09-15-2019 11:23:15 LAW WRITER by Omar Ramirez Performing Organization Address City/State/Zipcode Ph one Number TRACEMASTER * US Renal complete (08/31/2019 2:11 PM LAW WRITER) Specimen Impressions Performed At Unremarkable renal ultrasound. LEVI No suspicious renal mass identified. No evidence of hydronephrosis. READING SITE: [facility] Narrative Performed At Patient: ISIAH BENÍTEZ Sex#: F #: 1950 Jose #: [id number] [place] [facility] [place] [facility] [address] Accessi on#: [id number] Procedure Requested: [id number] US RENAL COMPLETE Reason for Exam: ARF, [...] Rad Results In - 08/31/2019 2:23 PM LAW WRITER Patient: ISIAH BENÍTEZ Sex#: F #: 1950 Jose#: [id number] Location: [place] [address]- Procedure Requested: [id number] US RENAL COMPLETE Reason for Exam: ARF, [...] identified. No evidence of hydronephrosis. READING SITE: [facility] Organization Address City/[facility] Ph one Number LEVI * Respiratory Panel by PCR (08/31/2019 11:35 AM LAW WRITER) [facility] Adenovirus Not Detected Not Detected [facility] Bordetella Not Detected Not Detected [facility] pertussis [facility] Chlamydophila Not Detected Not Detected [facility] pneumoniae [facility] Coronavirus Not Detected Not Detected [facility] 229E [facility] Coronavirus Not Detected Not Detected [facility] HKU1 [facility] Coronavirus Not Detected Not Detected [facility] NL63 [facility] Coronavirus Not Detected Not Detected [facility] OC43 [facility] Human Not Detected Not Detected [facility] Metapneumovirus [facility] (hMPV) Human Not Detected Not Detected [facility] Rhinovirus [facility] Enterovirus Influenza A Not Detected Not Detected [facility] Influenza B Not Detected Not Detected [facility] Mycoplasma Not Detected Not Detected [facility] Parainfluenza Not Detected Not Detected [facility] Virus (PIV) 1 Hospital Lab Parainfluenza Not Detected Not Detected [facility] Virus (PIV) 2 Hospital Lab Parainfluenza Not Detected Not Detected [facility] Virus (PIV) 3 [facility] Parainfluenza Not Detected Not Detected [facility] Virus (PIV) 4 [facility] Respiratory Detected (A) Not Detected [facility] Syncytial Virus Hospital Lab Pl Source NASOPHAR [facility] Specimen Nasopharynx, Performing Organization Address City/State/Zipcode Ph one Number [facility] [address] [place] [address] LABORATORIES [facility] [address] [place] [address] * Lactate Venous WB (08/30/2019 10:51 PM LAW WRITER) Only the most recent of 3 results within the time period is included. [facility] Lactate Venous 1.9 0.0 - 2.0 mmol/L [facility] Specimen Blood Narrative Performed At Reflex sepsis screen >2.0 [facility] Performing Organization Address City/[facility] Ph one Number [facility] [address] [place] [address] [facility] [address] [place] [address] [facility] [address] [place] [address], [place] [phone] [facility] * Glucose (08/30/2019 4:48 PM LAW WRITER) Glucose 304 (H) 70 - 100 mg/dL [facility] Specimen Blood Narrative Performed At Reflex order. Previous POC GLUCOSE >500 [facility] Performing Organization Address City/State/[facility] Ph one Number [facility] [address] [place] [address] [facility] [address] [place] [address] [facility] [address] [place] [address], [place] [phone] [facility] * FL Retrograde Urography in OR (08/30/2019 4:20 PM LAW WRITER) Specimen Impressions Performed At FINDINGS/IMPRESSION: 1 intraoperative fluoroscopicvie w is submitted. LEVI Total fluoroscopy time was 19.4 seconds . Left ureteral stent has been placed. The proximal aspect is coiled w ithin the decompressed left renal pelvis. The distal aspect is not includ ed on this examination. Please see procedure note for further evaluati on. READING LOCATION: [facility] Narrative Performed At Patient: ISIAH BENÍTEZ Sex#: F #: 1950 Jose #: [id number] Location: [facility] MAIN OR NONE Procedure Requested: [id number] FL RETRO GRADE UROGRAPHY IN OR Reason for Exam: abdomen pain Exam Ordered: 08/30/2019 144 0 Exam Date/Time: 08/30/2019 1620 Begin exam date/time: 08/30/2019 1530 STUDY/PROCEDURE: Intraoperative fluoros copic procedure guidance INDICATION: Left ureteral calculus, hyd ronephrosis. COMPARISON: CT of the abdomen and pelvi s with contrast dated September 09, 2019. Procedure Note Interface, Rad Results In - 08/30/2019 7:33 PM LAW WRITER Patient: ISIAH BENÍTEZ Sex#: F #: 1950 Jose#: [id number] Location: [facility] MAIN OR NONE Procedure Requested: [id number] FL RETROGRADE UROGRAPHY IN OR Reason for [...] procedure note for further evaluation. READING LOCATION: [facility] Performing Organization Address [facility] one Number LEVI * Culture, Urine (08/30/2019 3:54 PM LAW WRITER) Only the most recent of 2 results within the time period is included. Isolate 1 >100,000 Cfu/ml (A) [facility] Isolate 1 Steven albicans (A) [facility] Isolate 1 In the absence of symptoms, [facility] Steven is generally Hospital Lab considered normal ciera. No therapy indicated unless high risk (, or neutropenic) or undergoing urologic procedure. If Ballard catheter present, remove or replace when able. (A) Specimen Urine - Urine Antibiotic Method Susceptibility Organism FLUCONAZOLE <=1: Sensitive Steven albicans VORICONAZOLE <=0.12: Sensitive Steven albicans Performing Organization Address City/[facility] one Number [address] [address] LABORATORIES [facility] [address] [place] [address] * Culture, Fungus (08/30/2019 3:54 PM LAW WRITER) Isolate 1 Steven albicans (A) [facility] Specimen Urine - Urine Performing Organization Address [facility] Ph one Number [facility] [address] [place] [address] LABORATORIES [facility] [address] [place] [address] * Culture, AFB (08/30/2019 3:54 PM LAW WRITER) AFB Stain No Acid Fast Bacilli seen on [facility] fluorescent stain. Hospital Lab Culture result No Acid fast bacilli isolated [facility] collado Mycobacteriolog at 6 weeks [facility] y Specimen Urine - Urine Performing Organization Address [facility] one Number [facility] [address] [place] [address] LABORATORIES [facility] [address] [place] [address] * Urinalysis Microscopic Only (08/30/2019 2:14 PM LAW WRITER) Microscopic RBC 6 - 10 (A) 0 - 5 /hpf [facility] U[facility] Microscopic WBC >40 (A) 0 - 5 /hpf [facility] Epithelial Absent Absent [facility] Cells [facility] Hyaline Cast Large (A) Absent [facility] Bacteria Absent Absent [facility] WBC Clumps Present (A)Comment: WBC count Absent [facility] may be under-estimated due to [facility] the presence of WBC clumps. [facility] Yeast Present (A) Absent [facility] Specimen Catheter Urine Performing Organization Address City/[facility]ode Ph one Number [facility] [address] [facility] [place] [address] [facility] [address] [facility] [place] [address] [facility] * Urinalysis Reflex (08/30/2019 2:14 PM LAW WRITER) Appearance, Yellow [facility] Urine [facility] Glucose Urine >=1000 (A) Negative mg/dL [facility] Bilirubin Urine Negative Negative [facility] Ketones Urine Negative Negative mg/dL [facility] Specific >=1.030 1.001 - 1.030 [facility] Novelty, UA [facility] Hemoglobin Large (A) Negative [facility] Urine [facility] PH Urine 5.0 5.0 - 8.0 [facility] Protein Urine 30 (A) Negative mg/dL [facility] Qual [facility] Urobilinogen Negative Negative EU/dL [facility] Urine [facility] Nitrite Urine Negative Negative [facility] Leukocyte Positive (A) Negative [facility] Esterase [facility] Specimen Catheter Urine Performing Organization Address City/State/[facility] Centercode Ph one Number [facility] [address] [place] [address] [facility] [address] [place] [address] [facility] * CT Abdomen Pelvis w contrast (08/30/2019 12:48 PM LAW WRITER) Specimen Impressions Performed At 1. 5 mm proximal left ureteral stone and mild left-si ded hydronephrosis. LEVI No other nephroureterolithiasis is seen . 2. 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 Moderate urinary bladder distention. 3. Hepatomegaly and hepatic steatosis. READING SITE: [facility] Narrative Performed At Patient: ISIAH BENÍTEZ Sex#: F #: 1950 Jose #: [id number] Location: [facility] ED SED-07 Procedure Requested: [id number] CT ABDOM EN PELVIS W CONTRAST Reason [...] Rad Results In - 08/30/2019 1:09 PM LAW WRITER Patient: ISIAH BENÍTEZ Sex#: F #: 1950 Jose#: [id number] Location: [facility] ED SED-07 Procedure Requested: [id number] CT ABDOMEN PELVIS W CONTRAST Reason for [...] 3. Hepatomegaly and hepatic steatosis. READING SITE: [facility] Address City/State/Zipcode Ph one Number LEVI * Influenza PCR (08/30/2019 12:29 PM LAW WRITER) Influenza A PCR Not Detected Not Detected [facility] Influenza B PCR Not Detected Not Detected [facility] Source Nasopharynx [facility] Specimen NASOPHARYNGEAL SWAB Performing Organization Address [facility] one Number [facility] [address] [place] [address] [facility] [address] [place] [address] [facility] * ED PROCEDURE BASIC - CRITICAL CARE (08/30/2019 12:21 PM LAW WRITER) Narrative Performed At Dirk Valencia MD 08/30/2019 [...] Blood, diagnostic (non-neoplasm screening) (08/30/2019 12:14 PM LAW WRITER) Fecal Occult Negative Negative [facility] Blood [facility] Sample 1 08/30/2019 [facility] Collection Date [facility] Specimen Stool Performing Organization Address [facility] one Number [facility] [address] [place] [address] [facility] [address] [facility] [place] [address] [facility] * Magnesium (08/30/2019 12:13 PM LAW WRITER) Magnesium 1.7 1.4 - 2.7 mg/dL [facility] Specimen Blood Performing Organization Address [facility] one Number [facility] [address] [place] [address] [facility] [address] [place] [address] [facility] * BNP (08/30/2019 12:13 PM LAW WRITER) NTproBNP 340 pg/mL [facility] Comment: Cedric Ramos NT-proBNP Reference Ranges: [facility] <50 yr <450 pg/mL 50-75 yr <900 pg/mL >75 yr <1800 pg/mL A cutoff value of 1200 pg/mL is recommended in patients 50 to 70 years of age with a GFR between 30 and 60. NT-proBNP is unreliable in patients with GFR <30. Specimen Blood Performing Organization Address [facility] one Number [facility] [address] [place] [address] [facility] [address] [place] [address] [facility] * Lipase (08/30/2019 12:13 PM LAW WRITER) Lipase 20 (L) 23 - 300 IU/L [facility] Specimen Blood Performing Organization Address [facility] Ph one Number [facility] [address] [place] [address] [facility] [address] [place] [address] [facility] * Comprehensive Metabolic Panel (08/30/2019 12:13 PM LAW WRITER) Sodium 137 133 - 147 MEQ/L [facility] Potassium 4.4 3.5 - 5.3 MEQ/L [facility] Chloride 97 96 - 112 MEQ/L [facility] Carbon Dioxide 27 20 - 32 MEQ/L [facility] Anion Gap 14 5 - 17 [facility] Calcium 9.2 8.4 - 10.5 mg/dL [facility] Glucose 439 (H) 70 - 100 mg/dL [facility] Protein Total 8.8 (H) 6.0 - 8.2 g/dL [facility] Serum [facility] Albumin 4.5 3.5 - 5.0 g/dL [facility] Alkaline 124 42 - 140 IU/L [facility] Phosphatase [facility] Alanine 33 0 - 34 IU/L [facility] Aminotransferas [facility] Aspartate 36 15 - 46 IU/L [facility] Aminotransferas [facility] Bilirubin Total 0.5 0.2 - 1.3 mg/dL [facility] Blood Urea 26 7 - 26 mg/dL [facility] Creatinine 1.2 (H) 0.4 - 1.1 mg/dL [facility] eGFR Female AA 54 (L) 60 - 200 [facility]min[facility]1.73sq [facility] e[facility] Female 45 (L) 60 - 200 [facility] Non-AA mL/min/1.73sq [facility] Specimen Blood Performing Organization Address City/State/Zipcode Ph one Number [facility] [address] [facility] [place] [address] [place] [facility] [address] [facility] [place] [address] [facility] * CBC and Diff (manual diff if necessary) (08/30/2019 12:13 PM LAW WRITER) [facility] Signature WBC 12.26 (H) 4.00 - 11.00 TH/uL [facility] RBC 4.67 4.00 - 5.00 MIL/uL [facility] Hemoglobin 15.1 (H) 12.0 - 15.0 g/dL [facility] Hematocrit 45 36 - 45 % [facility] MCV 97 80 - 99 fL [facility] MCH 32 27 - 34 pg [facility] MCHC 33 32 - 36 % [facility] RDW 13.1 11.5 - 14.5 % [facility] Platelet Count 161 140 - 400 TH/uL [facility] MPV 10.8 9.4 - 12.[address] [facility] Nucleated RBCs 0 0 - 0 /100 [facility] % Neutrophils 87 (H) 45 - 78 % [facility] %Lymphocytes 10 (L) 15 - 47 % [facility] %Monocytes 3 0 - 12 % [facility] %Eosinophils 0 0 - 7 % [facility] %Basophils 0 0 - 2 % [facility] # Granulocytes 10.67 (H) 1.7 - 6.8 TH/uL [facility] # Lymphocytes 1.23 1.0 - 3.3 TH/uL [facility] # Monocytes 0.37 0.2 - 0.9 TH/uL [facility] # Eosinophils 0.00 0.0 - 0.4 TH/uL [facility] # Basophils 0.05 0.0 - 0.1 TH/uL [facility] Left Shift Present (A) Absent [facility] RBC Morphology Normal Normal [facility] Specimen Blood Performing Organization Address City/State/Zipcode Ph one Number [facility] [address] [place], [place] [id number] [place] [facility] [address] [facility] [place] [place] [address] [facility] documented in this encounter Visit Diagnoses [...] cardiac dysrhythmias Severe obesity (BMI >= 40) ([facility]) Hypertension Unspecified essential hypertension documented in this encounter Admitting Diagnoses Diagnosis Pyelonephritis Unspecified pyelonephritis documented in this encounter Administered Medications Action Date Dose Rate Site Medication Order MAR Action acetaminophen (TYLENOL) suppository 325-650 mg 325-650 mg, Rectal, Every 6 hours PRN, mild pain (pain score 1-3), fever, Starting Wed08/30/19 at 1724, Administer if patient unable to tolerate oral medications., 08/30/2019 12:18 PM LAW WRITER 1,000 mg acetaminophen (TYLENOL) tablet 1,000 mg [...] not exceed 2 GM/DAY., 09/02/2019 11:25 PM LAW WRITER 2.5 mg albuterol (ACCUNEB) 2.5 mg/3 mL (0.083 Given %) nebulizer solution 2.5 mg 2.5 mg, Nebulization, Every 4 hours PRN , wheezing, shortness of air, Starting 08/30/19 at 1725 2.5 mg Given 09/01/2019 1:03 AM LAW WRITER 09/05/2019 3:01 PM LAW WRITER 2 mg alteplase (CATHFLO ACTIVASE) injection 2 Given mg 2 mg, Intra-Catheter, As needed, declotting central catheter or sluggish/occluded CVC line, Starting u 08/31/19 at 1724, Use 2 mg/2 mL to declot catheter as needed, Declot catheter per Central Venous Access Device, Declottin g procedure in Melissa Refrigerate. Reconstitute with 2.2 mL sterile water for injection, 08/31/2019 6:33 PM LAW WRITER 15 mL aluminum-magnesium hydroxide-simethicone Given (MAALOX PLUS) 400-400-40 mg/5 mL suspension 15 mL 15 mL, Oral, Every 4 hours PRN, indigestion, Starting Wed08/30/19 at 1723, Avoid if estimated glomerular filtration rate (eGFR) is less than 20 mL/minute/1.73m2., 09/06/2019 8:51 PM LAW WRITER 25 mg amitriptyline (ELAVIL) tablet 25 mg Given 25 mg, Oral, Nightly, First dose on Wed08/30/19 at 2100 25 mg Given 09/05/2019 8:09 PM LAW WRITER 25 mg Given 09/04/2019 8:33 PM LAW WRITER 09/06/2019 8:51 PM LAW WRITER 40 mg atorvastatin (LIPITOR) tablet 40 mg Given 40 mg, Oral, Nightly, First dose on Wed08/30/19 at 2100 40 mg Given 09/05/2019 8:09 PM LAW WRITER 40 mg Given 09/04/2019 8:33 PM LAW WRITER benzocaine-menthol (CEPACOL) lozenge 1 lozenge 1 lozenge, Buccal, Every 1 hour prn, sore throat, Starting Wed08/30/19 at 172 4 09/07/2019 2:48 PM LAW WRITER 100 mg benzonatate (TESSALON) capsule 100 mg Given 100 mg, Oral, 3 times daily PRN, cough, Starting Wed08/30/19 at 1753, DO NOT CRUSH OR CHEW., 100 mg Given 09/07/2019 10:06 AM LAW WRITER 100 mg Given 09/05/2019 8:27 PM LAW WRITER bisacodyl (DULCOLAX) suppository 10 mg 10 mg, Rectal, Daily PRN, constipation, constipation in patients who are NPO, i n patients who have nausea, or in patient s where there is any concern about ileus or bowel obstruction., Starting Wed08/30/19 at 1723, Hold these medications if patient has had loose stool or diarrhea within previous 24 hours., 09/06/2019 10:03 AM LAW WRITER 2 g cefTRIAXone (ROCEPHIN) injection 2 g Given 2 g, Intravenous, Daily, Indications: SEPSIS, UTI, First dose on Wed08/30/19 a t 1745, If giving IV push, reconstitute each vial with 20 ml sterile water and give over 3-5 minutes If sterile water is unavailable, may use Bacteriostatic Water or Normal Saline for reconstitution , 2 g Given 09/05/2019 10:33 AM LAW WRITER 2 g Given 09/04/2019 9:14 AM LAW WRITER 09/07/2019 10:06 AM LAW WRITER 20 mg citalopram (CeleXA) tablet 20 mg Given 20 mg, Oral, Daily, First dose on Wed08/30/19 at 1745 20 mg Given 09/06/2019 9:23 AM LAW WRITER 20 mg Given 09/05/2019 8:33 AM LAW WRITER 09/04/2019 3:35 AM LAW WRITER 0.1 mg cloNIDine HCl (CATAPRES) tablet 0.1 mg Given 0.1 mg, Oral, Every 8 hours PRN, SBP > 180 and/or DBP > 100, Starting Wed09/04/19 at 0322 09/07/2019 2:29 PM LAW WRITER 10 mg cyclobenzaprine (FLEXERIL) tablet 10 mg Given 10 mg, Oral, 3 times daily PRN, muscle spasms, Starting Wed08/30/19 at 1726 10 mg Given 09/07/2019 10:05 AM LAW WRITER 10 mg Given 09/04/2019 8:50 PM LAW WRITER dextrose (D50W) 50 % injection 25-50 mL 25-50 mL, Intravenous, As needed, low blood sugar, for 24 hours., Starting We d 08/30/19 at 1724, 25-50 mL, Intravenous, As [...] 2 times daily PRN, stool softening, Starting 08/30/19 at 1723, DO NOT CRUSH OR CHEW., 09/01/2019 8:06 AM LAW WRITER 100 mg doxycycline hyclate (VIBRA-TABS) tablet Given 100 mg 100 mg, Oral, 2 times daily with meals, Indications: COPD, UTI with hx of staph epi, First dose on Wed08/30/19 at 1745, Give with food to reduce GI upset, 100 mg Given 08/31/2019 5:30 PM LAW WRITER 100 mg Given 08/31/2019 11:13 AM LAW WRITER 09/07/2019 10:03 AM LAW WRITER 40 mg Right Lo wer Abdomen enoxaparin (LOVENOX) syringe 40 mg Given 40 mg, Subcutaneous, Every 24 hours scheduled, First dose on Wed08/30/19 at 1745 40 mg Left Lower Abdomen Given 09/06/2019 9:24 AM LAW WRITER 40 mg Right Lower Abdomen Given 09/05/2019 8:32 AM LAW WRITER 09/06/2019 11:08 AM LAW WRITER 50 mcg fentaNYL (SUBLIMAZE) injection 25-50 mcg [...] therapy., 50 mcg Given 09/05/2019 8:09 PM LAW WRITER 50 mcg Given 09/05/2019 10:30 AM LAW WRITER 08/30/2019 2:26 PM LAW WRITER 50 mcg fentaNYL (SUBLIMAZE) injection 50 mcg Given 50 mcg, Intravenous, Once, Wed08/30/19 a t 1349, For 1 dose, Administer over 2 minutes; max dose for IVP is 2 mcg/kg. Note: Limit does not apply to patients who may be tolerant to opioid therapy o r on continuous IV or PO opiate therapy., 08/30/2019 5:57 PM LAW WRITER 150 mg fluconazole (DIFLUCAN) tablet 150 mg Given 150 mg, Oral, Every other day, Indications: VAGINAL CANDIDIASIS, First dose on Wed08/30/19 at 1800, For 3 doses 09/07/2019 11:40 AM LAW WRITER 400 mg 100 mL/hr fluconazole in NaCl (iso-osm) (DIFLUCAN) New Bag IVPB 400 mg 400 mg, Intravenous, at 100 mL/hr, Daily, Indications: CANDIDEMIA, C. albicans sensitive to fluconazole, Firs t dose on Wed09/06/19 at 1000 400 mg 100 mL/hr New Bag 09/06/2019 10:13 AM LAW WRITER 09/05/2019 10:41 AM LAW WRITER 400 mg 100 mL/hr fluconazole in NaCl (iso-osm) (DIFLUCAN) New Bag IVPB 400 mg 400 mg, Intravenous, at 100 mL/hr, Once , Indications: CANDIDEMIA, 09/05/19 at 1000, For 1 dose, Bag 1 of 2 for total dose 800 mg, 09/05/2019 12:46 PM LAW WRITER 400 mg 100 mL/hr fluconazole in NaCl (iso-osm) (DIFLUCAN) New Bag IVPB 400 mg 400 mg, Intravenous, at 100 mL/hr, Once , Indications: CANDIDEMIA, Tu09/05/19 at 1200, For 1 dose, Bag 2 of 2 for total of 800 mg, 09/07/2019 8:16 AM LAW WRITER 1 puff fluticasone furoate-vilanterol (BREO Given ELLIPTA) 200-25 mcg/actuation inhaler 1 puff 1 puff, Inhalation, Daily, First dose o n Wed08/30/19 at 1745, Rinse mouth with water after use if patient not on vent. , 1 puff Given 09/06/2019 8:44 AM LAW WRITER 1 puff Given 09/05/2019 7:49 AM LAW WRITER 09/06/2019 10:03 AM LAW WRITER 40 mg furosemide (LASIX) injection 40 mg Given 40 mg, Intravenous, Once, Wed09/06/19 a t 0945, For 1 dose 09/07/2019 10:07 AM LAW WRITER 600 mg gabapentin (NEURONTIN) capsule 600 mg Given 600 mg, Oral, 3 times daily, First dose on Wed08/30/19 at 1745 600 mg Given 09/06/2019 8:51 PM LAW WRITER 600 mg Given 09/06/2019 5:14 PM LAW WRITER glucagon (GLUCAGEN) injection 1 mg 1 mg, Intramuscular, As needed, low blood sugar, low blood sugar, Starting Wed08/30/19 at 1725, Give if patient NPO and no IV access. May give IM or SQ in arm and turn patient on side. Reconstitute powder for injection by adding 1 mL of rewinder-supplied sterile diluent or sterile water for injection [...] for injection by adding 1 mL of rewinder-supplied sterile diluent o r sterile water for [...] less than 70 mg/dL., 09/07/2019 2:48 PM LAW WRITER 200 mg guaiFENesin (ROBITUSSIN) 100 mg/5 mL Given syrup 200 mg 200 mg, Oral, Every 4 hours PRN, cough, Starting Wed08/30/19 at 1724 200 mg Given 09/07/2019 10:03 AM LAW WRITER 200 mg Given 09/03/2019 3:05 AM LAW WRITER 09/07/2019 10:05 AM LAW WRITER 25 mg hydroCHLOROthiazide (HYDRODIURIL) tablet Given 25 mg 25 mg, Oral, Daily, First dose on Wed09/05/19 at 0900 25 mg Given 09/06/2019 9:24 AM LAW WRITER 25 mg Given 09/05/2019 8:32 AM LAW WRITER 09/04/2019 8:06 AM LAW WRITER 1 tablet HYDROcodone-acetaminophen (NORCO) 5-325 Given mg [...] relief, 1 tablet Given 09/04/2019 3:11 AM LAW WRITER 1 tablet Given 09/03/2019 2:11 PM LAW WRITER 09/07/2019 10:03 AM LAW WRITER 0.125 mg hyoscyamine (LEVSIN/SL) SL tablet 0.125 Given mg 0.125 mg, Sublingual, Every 4 hours, First dose on Wed09/06/19 at 1200, For bladder spasms, 0.125 mg Given 09/07/2019 4:25 AM LAW WRITER 0.125 mg Given 09/07/2019 12:48 AM LAW WRITER 08/30/2019 9:01 PM LAW WRITER 20 Units Left Upp er Abdomen insulin glargine (LANTUS) injection 20 Given Units 20 Units, Subcutaneous, Nightly, First dose (after last modification) on Wed08/30/19 at 2100 09/06/2019 8:51 PM LAW WRITER 25 Units Right Lo wer Abdomen insulin glargine (LANTUS) injection 25 Given Units 25 Units, Subcutaneous, Nightly, First dose (after last modification) on Wed08/31/19 at 2100 25 Units Right Arm Given 09/05/2019 8:06 PM LAW WRITER 25 Units Left Lower Abdomen Given 09/04/2019 8:33 PM LAW WRITER 09/07/2019 2:29 PM LAW WRITER 9 Units Right Lo wer Abdomen insulin [...] Left Upper Abdomen Given 09/07/2019 6:23 AM LAW WRITER 12 Units Right Upper Abdomen Given 09/07/2019 12:48 AM LAW WRITER 08/30/2019 3:05 PM LAW WRITER 5 Units Right Up per Abdomen insulin regular (HumuLIN R) injection 5 Given Units 5 Units, Subcutaneous, Once, Wed08/30/19 at 1506, For 1 dose, Pre-op 08/30/2019 3:05 PM LAW WRITER 5 Units insulin regular (HumuLIN R) injection 5 Given Units 5 Units, Intravenous, Once, Wed08/30/19 at 1506, For 1 dose, Pre-op 08/30/2019 12:48 PM LAW WRITER 100 mL iohexol (OMNIPAQUE) 350 mg iodine/mL Given injection 100 mL 100 mL, Intravenous, Once in imaging, contrast, Starting Wed08/30/19 at 1248, For 1 dose 09/05/2019 8:41 PM LAW WRITER 3 mL ipratropium-albuterol (DUO-NEB) 0.5-3 Given mg/3 mL nebulizer solution 3 mL 3 mL, Inhalation, 4 times daily, First dose on Wed08/31/19 at 1115 3 mL Given 09/05/2019 1:40 PM LAW WRITER 3 mL Given 09/05/2019 7:49 AM LAW WRITER 09/07/2019 1:22 PM LAW WRITER 3 mL ipratropium-albuterol (DUO-NEB) 0.5-3 Given mg/3 mL nebulizer solution 3 mL 3 mL, Inhalation, Every 4 hours, First dose (after last modification) on Wed09/06/19 at 0100 3 mL Given 09/07/2019 8:25 AM LAW WRITER 3 mL Given 09/07/2019 3:51 AM LAW WRITER 08/30/2019 2:39 PM LAW WRITER 15 mg ketorolac (TORADOL) injection 15 mg Given 15 mg, Intravenous, Once, Wed08/30/19 at 1422, For 1 dose 09/07/2019 10:06 AM LAW WRITER 2 capsules lactobacillus (CULTURELLE) 10 billion Given cell capsule 2 capsule, Oral, Daily, First dose on Wed08/30/19 at 1815 2 capsules Given 09/06/2019 9:23 AM LAW WRITER 2 capsules Given 09/05/2019 8:33 AM LAW WRITER magnesium sulfate IVPB 2 gram (premix) 2 [...] (if able to monitor)., 09/05/2019 8:06 PM LAW WRITER 3 mg melatonin tablet 3 mg Given 3 mg, Oral, Nightly PRN, sleep, Startin g Wed08/30/19 at 1724, Give 3-4 hours prio r to planned bedtime., 09/07/2019 10:04 AM LAW WRITER 100 mg metoprolol tartrate (LOPRESSOR) tablet Given 100 mg 100 mg, Oral, 2 times daily, First dose on Wed08/30/19 at 2100, Hold for sbp < 100 or hr < 50, 100 mg Given 09/06/2019 8:52 PM LAW WRITER 100 mg Given 09/06/2019 9:23 AM LAW WRITER 09/04/2019 8:10 AM LAW WRITER 100 mg 105 mL/hr micafungin (MYCAMINE) 100 mg in sodium New Bag chloride 0.9 % (NS) 100 mL IVPB 100 mg, Intravenous, Administer over 60 Minutes, Every 24 hours scheduled, Indications: CANDIDEMIA, First dose on Ju 08/31/19 at 1915, Flush IV line with NS prior to administration REFRIGERATE PROTECT FROM LIGHT, 100 mg 105 mL/hr New Bag 09/03/2019 11:19 AM LAW WRITER 100 mg 105 mL/hr New Bag 09/02/2019 9:05 AM LAW WRITER miconazole nitrate (ALOE VESTA) 2 % ointment Topical, 3 times daily PRN, perineal or skin fold redness, Starting Wed08/30/19 at 1724, Consult wound care if no improvement within 3 days., ondansetron (ZOFRAN) injection 4 mg 4 mg, Intravenous, Every 6 hours PRN, nausea/vomiting (2nd line), Starting We d 08/30/19 at 1724 09/07/2019 2:29 PM LAW WRITER 1 tablet oxyCODONE-acetaminophen (PERCOCET) 5-325 Given mg 1 tablet 1 tablet, Oral, Every 4 hours PRN, moderate pain (pain score 4-6), Startin g 09/04/19 at 1011, Do not exceed 4 GM/DAY of acetaminophen. If 65 or olde r do not exceed 3 GM/DAY. If chronic alcoholic do not exceed 2 GM/DAY., 1 tablet Given 09/07/2019 10:07 AM LAW WRITER 1 tablet Given 09/07/2019 2:40 AM LAW WRITER 09/07/2019 11:33 AM LAW WRITER 40 mg pantoprazole (PROTONIX) injection 40 mg Given 40 mg, Intravenous, 2 times daily, Firs t dose on Wed08/30/19 at 2100, Dilute with 10 mL of 0.9% NaCl. DO NOT REFRIGERATE, 40 mg Given 09/06/2019 8:51 PM LAW WRITER 40 mg Given 09/06/2019 9:23 AM LAW WRITER 08/30/2019 2:20 PM LAW WRITER 80 mg pantoprazole (PROTONIX) injection 80 mg Given 80 mg, Intravenous, Once, Wed08/30/19 at 1246, For 1 dose, Dilute with 10 mL of 0.9% NaCl. DO NOT REFRIGERATE, 09/07/2019 10:07 AM LAW WRITER 100 mg phenazopyridine (PYRIDIUM) tablet 100 mg Given 100 mg, Oral, 3 times daily PRN, dysuria, Starting Wed09/06/19 at 0924 08/30/2019 2:36 PM LAW WRITER 4.5 g 200 mL/hr piperacillin-tazobactam (ZOSYN) 4.5 [...] Hours, As needed, standard electrolyte replacement, Starting 08/30/19 at 1724, Administer if unable to take [...] through a central line., 08/30/2019 5:58 PM LAW WRITER 20 mg predniSONE (DELTASONE) tablet 20 mg Given 20 mg, Oral, Daily, First dose on Wed08/30/19 at 1800, For 3 doses, Give with food to reduce GI upset, 09/07/2019 10:06 AM LAW WRITER 30 mg predniSONE (DELTASONE) tablet 30 mg Given 30 mg, Oral, Daily, Indications: prevention of cardiac transplant rejection, First dose (after last modification) on Wed09/05/19 at 0900, Give with food to reduce GI upset, 30 mg Given 09/06/2019 9:23 AM LAW WRITER 30 mg Given 09/05/2019 8:33 AM LAW WRITER 09/04/2019 8:04 AM LAW WRITER 40 mg predniSONE (DELTASONE) tablet 40 mg Given 40 mg, Oral, Daily, First dose on Ju 08/31/19 at 1115, Give with food to reduc e GI upset, 40 mg Given 09/03/2019 8:51 AM LAW WRITER 40 mg Given 09/02/2019 8:59 AM LAW WRITER prochlorperazine (COMPAZINE) injection 2.5-5 mg 2.5-5 mg, [...] PRN, nausea/vomiting (1st line), Starting We d 08/30/19 at 1724, Administer if patient does not have IV access and refuses IM injection., sodium chloride (OCEAN) 0.65 % nasal spray 1 spray 1 spray, Each Nare, As needed, irritation, Starting Wed08/30/19 at 1724 08/30/2019 12:20 PM LAW WRITER 1,000 mL 983.61 mL/hr sodium chloride 0.9% (NS) IV Bolus New Bag 1,000 mL, Intravenous, Administer over 61 Minutes, Once, Wed08/30/19 at 1134, For 1 dose 08/30/2019 6:07 PM LAW WRITER 1,000 mL 983.61 mL/hr sodium chloride 0.9% (NS) IV Bolus New Bag 1,000 mL, Intravenous, Administer over 61 Minutes, Once, Wed08/30/19 at 1745, For 1 dose 08/31/2019 2:43 AM LAW WRITER 1,000 mL 495.87 mL/hr sodium chloride 0.9% (NS) IV Bolus New Bag 1,000 mL, Intravenous, Administer over 121 Minutes, Once, [facility] 08/31/19 at 0300, For 1 dose 09/01/2019 6:01 AM LAW WRITER 50 mL/hr 50 mL/hr sodium chloride 0.9% infusion New Bag 50 mL/hr, Intravenous, Continuous, Starting Wed08/30/19 at 1730, For 48 hours 50 mL/hr 50 mL/hr Rate/Dose Verify 08/31/2019 5:50 PM LAW WRITER 50 mL/hr 50 mL/hr Rate/Dose Change 08/31/2019 3:30 PM LAW WRITER 09/02/2019 2:35 AM LAW WRITER 50 mL/hr 50 mL/hr sodium chloride 0.9% infusion New Bag 50 mL/hr, Intravenous, Continuous, Starting Wed09/01/19 at 1800, For 48 hours 50 mL/hr 50 mL/hr Continue Same Bag 09/01/2019 5:50 PM LAW WRITER 09/07/2019 10:04 AM LAW WRITER 0.4 mg tamsulosin (FLOMAX) 24 hr capsule 0.4 mg Given 0.4 mg, Oral, Daily, First dose on Wed08/30/19 at 1800, DO NOT CRUSH OR CHEW., 0.4 mg Given 09/06/2019 9:24 AM LAW WRITER 0.4 mg Given 09/05/2019 8:32 AM LAW WRITER 09/07/2019 10:04 AM LAW WRITER 2 mg tolterodine (DETROL) tablet 2 mg Given 2 mg, Oral, 2 times daily, First dose o n 08/30/19 at 2100 2 mg Given 09/06/2019 9:51 PM LAW WRITER 2 mg Given 09/06/2019 9:24 AM LAW WRITER documented in this encounter Additional Health Concerns Last Indicated Resolved Time Infection Onset Date 08/30/2019 08/30/2019 1:09 PM LAW WRITER Influenza - Rule Out 08/30/2019 08/31/2019 09/17/2019 8:17 AM LAW WRITER RSV 08/31/2019 documented as of this encounter
--- OUTSIDE RECORDS SUMMARY | 2020-03-12 09:07 | XMS REPORT | Encounter Summary ---
Author Author [facility] Address Unknown Phone Unavailable Care Team Providers Care Javascript Programmer Name Role Phone Ebony Sharp MD PCP [...] Description Date [place] [address] [place] [address] CYSTOSCOPY, LEFT RETROGRADE PYELOGRAM, A ND LEFT URETERAL STENT INSERTION 08/30/2019 Surgery [facility] [address] [place], [place] [id number] Social History Date Tobacco Use Types Packs/Day [...] Comments Vital Sign 135/92 09/07/2019 12:11 PM LEVER OPERATOR Blood Pressure 79 09/07/2019 1:25 PM LEVER OPERATOR Pulse 36.7 C (98.1 F) 09/07/2019 12:11 PM LEVER OPERATOR Temperature 14 09/07/2019 1:25 PM LEVER OPERATOR Respiratory Rate 98% 09/07/2019 1:25 PM LEVER OPERATOR Oxygen Saturation - - Inhaled Oxygen Concentration 101 kg (222 lb 10.6 oz) 09/07/2019 6:04 AM LEVER OPERATOR Weight 152.4 cm (5') 08/30/2019 5:56 PM LEVER OPERATOR Height 43.49 08/30/2019 5:56 PM LEVER OPERATOR Body Mass Index documented in this encounter Discharge Summaries * JhonatanSueCecilia, - 09/07/2019 10:48 AM LEVER OPERATOR [facility] Hospitalist - Discharge Summary Patient Name: Isiah Benítez Account No: [id number] Date of : 1950 Date of Admission: [...] Up Appointments/Studies ([facility]): Future Appointments Date Time Provider Department Center 09/09/2019 To Be Determined Karen Levin RN [facility] None 10/04/2019 1:[address] [place] 10/11/2019 1:30 PM Darin Huber MD [facility] Additional Discharge Follow Up: Dr. Ebony Sharp [...] 2 CAPSULES BY MOUTH THREE TIMES DAILY [id number](VIT A,C-BIOTIN) ORAL Oral, Daily insulin glargine 100 [...] or edited the final report. READING SITE: [facility] Cardiac Studies during this encounter: No [...] in this summary note. Cecilia Israel DO [facility] . R OPERATOR documented in this encounter Discharge Instructions * Attachments The following attachments cannot be sent through Care Everywhere.* FLUCONAZOLE ORAL TABLET (TURKISH) * Hydrochlorothiazide, HCTZ capsules or tablets (Maltese) * Lactobacillus Oral formulations (Maltese) * OXYCODONE HYDROCHLORIDE, ACETAMINOPHEN ORAL TABLET (TURKISH) * PREDNISONE ORAL TABLET (TURKISH) * Pyelonephritis, Discharge Instructions for (Maltese) * Urinary Tract Infections in Women (Maltese) * Infection, Respiratory Syncytial Virus (RSV) (Maltese) * KIDNEY STONE W/ COLIC (TURKISH) * Stents, Ureteral (Maltese) documented in this encounter Medications at Time [...] A/vit Take by mouth 0 C/biotin/zinc/copper daily. ([id number],VIT A,C-BIOTIN, ORAL) 09/07/2019 09/13/2019 fluconazole (DIFLUCAN) Take [...] * Cecilia Israel, - 09/06/2019 5:22 PM LEVER OPERATOR [facility] Hospital[facility] - Progress Note Patient Name: Isiah Do Board Account No: [id number] Date of : 1950 Date of Admission: [...] re results (as indicated), current inpatient medications, procurement consultant notes and s upport staff notes with pertainent findings noted within the assessment/plan. Assessment/Plan Ms. Isiah Benítez is a 69 y.o. female who was admitted on 08/30/2019 with Hemateme sis and Dizziness. Problems addressed with today's visit include: * Severe sepsis ([facility])/ pyelonephritis Sepsis resolved, s/p stent placement, ballard left in place, improving. - Will need to follow up with urology in 2-3 weeks COPD exacerbation ([facility])/ Acute on chronic hypoxemic respiratory failure +RSV - Taper steroids q 3 days - Titrate off O2 as able Hematemesis Hb remains stable - Cont PPI Acute on chronic respiratory failure ([facility]) - Due to COPD & RSV left Ureteral stone with hydronephrosis S/p left ureteral stent placement by Urology on 08/30/19. F/u for definitive treat ment Flomax, strain urine Hypertension - Add HCTZ Severe obesity (BMI >= 40) ([facility]) - Counseled on weight loss Acute vaginitis Fluconazole 150mg qOD X 3 days Type 2 diabetes mellitus with hyperglycemia, with long-term current use of insul in ([facility]) Resume home basal with level V SSI See my orders for additional details regarding this patients treatment plan. Room: [address] [place] [address] Diet: Diet-Low Fat/Chol, 2gm Na, Consistent Carbohydrate [...] prochlorpe razine, sodium chloride Cecilia Israel DO [facility] . R OPERATOR * Arabella Irwin RN ANP - 09/06/2019 9:25 AM LEVER OPERATOR [facility] Progress Note Date: 09/06/2019 Subjective: Sitting [...] CVA tenderness Assessment/Plan: Principal Problem: Severe sepsis ([facility])/ pyelonephritis Active Problems: Pyelonephritis left Ureteral stone with hydronephrosis COPD exacerbation ([facility])/ Acute on chronic hypoxemic respiratory failure Acute on chronic respiratory failure ([facility]) Type 2 diabetes mellitus with hyperglycemia, with long-term current use of ins ulin ([facility]) Hematemesis Acute vaginitis Severe obesity (BMI >= 40) ([facility]) Hypertension POD#7s/p cystoscopy andleft ureteral stent for5 [...] questions/concerns. Arabella Irwin 09/06/2019 9:25 AM R OPERATOR * Cecilia Israel DO - 09/05/2019 4:37 PM LEVER OPERATOR [facility] Hospitalist - Progress Note Patient Name: Isiah Do Board Account No: [id number] Date of : 1950 Date of Admission: [...] re results (as indicated), current inpatient medications, procurement consultant notes and s upport staff notes with pertainent findings noted within the assessment/plan. Assessment/Plan Ms. Isiah Benítez is a 69 y.o. female who was admitted on 08/30/2019 with Hemateme sis and Dizziness. Problems addressed with today's visit include: * Severe sepsis ([facility])/ pyelonephritis Sepsis resolved, s/p stent placement, ballard left in place, improving. - Will need to follow up with urology in 2-3 weeks COPD exacerbation ([facility])/ Acute on chronic hypoxemic respiratory failure +RSV - Taper steroids q 3 days - Titrate off O2 as able Hematemesis Hb remains stable - Cont PPI Acute on chronic respiratory failure ([facility]) - Due to COPD & RSV left Ureteral stone with hydronephrosis S/p left ureteral stent placement by Urology on 08/30/19. F/u for definitive treat ment Flomax, strain urine Hypertension - Add HCTZ Severe obesity (BMI >= 40) ([facility]) - Counseled on weight loss Acute vaginitis Fluconazole 150mg qOD X 3 days Type 2 diabetes mellitus with hyperglycemia, with long-term current use of insul in ([facility]) Resume home basal with level V SSI See my orders for additional details regarding this patients treatment plan. Room: [address] [place] [address] Diet: Diet-Low Fat/Chol, 2gm Na, Consistent Carbohydrate [...] prochlorperazine, sodium ch loride Cecilia Israel DO [facility] . R OPERATOR * Arabella Irwin RN ANP - 09/05/2019 9:23 AM LEVER OPERATOR [facility] Progress Note Date: 09/05/2019 Subjective: Resting [...] the last 7 days Lab Units 09/05/19 02009/03/197 09/02/19 0408 WBC TH/uL 9.89 10.60 9.49 [...] CVA tenderness Assessment/Plan: Principal Problem: Severe sepsis ([facility])/ pyelonephritis Active Problems: Pyelonephritis left Ureteral stone with hydronephrosis COPD exacerbation ([facility])/ Acute on chronic hypoxemic respiratory failure Acute on chronic respiratory failure ([facility]) Type 2 diabetes mellitus with hyperglycemia, with long-term current use of ins ulin ([facility]) Hematemesis Acute vaginitis Severe obesity (BMI >= 40) ([facility]) POD#6s/p cystoscopy andleft ureteral stent for5 mm [...] Hospitalist Arabella Irwin 09/05/2019 9:24 AM R OPERATOR * Arabella Irwin RN ANP - 09/04/2019 4:09 PM LEVER OPERATOR [facility] Progress Note Date: 09/04/2019 Subjective: Doing [...] generalized TTP Assessment/Plan: Principal Problem: Severe sepsis ([facility])/ pyelonephritis Active Problems: Pyelonephritis left Ureteral stone with hydronephrosis COPD exacerbation ([facility])/ Acute on chronic hypoxemic respiratory failure Acute on chronic respiratory failure ([facility]) Type 2 diabetes mellitus with hyperglycemia, with long-term current use of ins ulin ([facility]) Hematemesis Acute vaginitis Severe obesity (BMI >= 40) ([facility]) POD#5s/p cystoscopy andleft ureteral stent for5 mm [...] Hospitalist Arabella Irwin 09/04/2019 4:09 PM R OPERATOR * Cecilia Israel DO - 09/04/2019 2:33 PM LEVER OPERATOR [facility] Hospitalist - Progress Note Patient Name: Isiah Benítez Account No: [id number] Date of : 1950 Date of Admission: [...] re results (as indicated), current inpatient medications, procurement consultant notes and s upport staff notes [...] with urology in 2-3 weeks COPD exacerbation ([facility])/ Acute on chronic hypoxemic respiratory failure +RSV - Taper steroids - Titrate off O2 as able Hematemesis Hb remains stable - Cont PPI Acute on chronic respiratory failure ([facility]) - Due to COPD & RSV left Ureteral stone with hydronephrosis S/p left ureteral stent placement by Urology on 08/30/19. F/u for definitive treat ment Flomax, strain urine Severe obesity (BMI >= 40) ([facility]) - Counseled on weight loss Acute vaginitis Fluconazole 150mg qOD X 3 days Type 2 diabetes mellitus with hyperglycemia, with long-term current use of insul in ([facility]) Resume home basal with level V SSI See my orders for additional details regarding this patients treatment plan. Room: [address] [place] [address] Diet: Diet-Low Fat/Chol, 2gm Na, Consistent Carbohydrate [...] prochlorperazine, sodium ch loride Cecilia Israel DO [facility] . R OPERATOR * Chuckie Short MD - 09/03/2019 12:52 PM LEVER OPERATOR [facility] Hospitalist - Progress Note Patient Name: Isiah Benítez Account No: [id number] Date of : 1950 Date of Admission: [...] details regarding this patients treatment plan. Room: [address] [place] [address] Diet: Diet-Low Fat/Chol, 2gm Na, Consistent Carbohydrate [...] OR prochlorperazine, sodium chloride Chuckie Short MD [facility] . High med decision making. R OPERATOR * Judson Hernandez MD - 09/03/2019 10:09 AM LEVER OPERATOR [facility] Progress Note Date: 09/03/2019 Subjective: Doing [...] respiratory failure Acute on chronic respiratory failure ([facility]) Type 2 diabetes mellitus with hyperglycemia, with long-term current use of ins ulin ([facility]) Hematemesis Acute vaginitis Severe obesity (BMI >= 40) ([facility]) POD#4s/p cystoscopy andleft ureteral stent for5 mm left proximal ureteral calculus, bilateral hydronephrosis, acute renal failure, andurosepsis - Currently afebrile and stable. Urine and blood cultures growing Steven. Con tinue Rocephin and Micafungin. Awaiting final culture results. - Renal sono 08/31 confirmed resolution of bilateral hydronephrosis. 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 Good UOP - Left flank pain/bladder pressure likely from stent/Ballard. Continue supportiv e care. Currently on Detrol LA and PRN Harrell/Fentanyl. Will plan VT in AM sandy . - Left URS as outpt once recovered - Continue inpatient care - Appreciate assistance from Hospitalist and ICU physicians Judson Hernandez 09/03/2019 10:09 AM R OPERATOR * Judson Hernandez MD - 09/02/2019 11:05 AM LEVER OPERATOR [facility] Progress Note Date: 09/02/2019 Subjective: No [...] urine clear Assessment/Plan: Principal Problem: Severe sepsis ([facility])/ pyelonephritis Active Problems: Pyelonephritis left Ureteral stone with hydronephrosis COPD exacerbation ([facility])/ Acute on chronic hypoxemic respiratory failure Acute on chronic respiratory failure ([facility]) Type 2 diabetes mellitus with hyperglycemia, with long-term current use of ins ulin ([facility]) Hematemesis Acute vaginitis Severe obesity (BMI >= 40) ([facility]) POD#3 s/p cystoscopy and left ureteral stent for 5 mm left proximal ureteral rosalind culus, bilateral hydronephrosis, acute renal failure, and urosepsis - Currently afebrile and stable. Urine and blood cultures growing Steven. Con tinue Rocephin and Micafungin. Awaiting final culture results. - Renal sono 08/31 confirmed resolution of bilateral hydronephrosis. 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 Good UOP -Left flank pain/bladder pressure likely from stent/Ballard. Continue supportive care. Currently on Detrol LA and PRN Harrell/Fentanyl -Left URS as outpt once recovered - Continue inpatient care - Appreciate assistance from Hospitalist and ICU physicians Judson Hernandez 09/02/2019 11:05 AM R OPERATOR * Chuckie Short MD - 09/02/2019 8:04 AM LEVER OPERATOR [facility] - Progress Note Patient Name: Isiah Benítez Account No: [id number] Date of : 1950 Date of Admission: [...] details regarding this patients treatment plan. Room: [address] [place] [address] Diet: Diet-Low Fat/Chol, 2gm Na, Consistent Carbohydrate [...] perazine OR prochlorperazine OR prochlorperazine, sodium chloride Christopher Short, MD [facility] . [facility] decision making. R OPERATOR * Chuckie Short MD - 09/01/2019 11:10 AM LEVER OPERATOR [facility] Hospitalist - Progress Note Patient Name: Isiah Benítez Account No: [id number] Date of : 1950 Date of Admission: [...] regarding this patients treatment plan. Room: [address] [place] [address] Diet: Diet-Low Fat/Chol, 2gm Na, Consistent Carbohydrate [...] OR prochlorperazine, sodium chloride Chuckie Short MD [facility] . High med decision making. R OPERATOR * Arabella Irwin RN ANP - 09/01/2019 8:50 AM LEVER OPERATOR [facility] Progress Note Subjective: Interval History: Main [...] urine cloudy Assessment/Plan: Principal Problem: Severe sepsis ([facility])/ pyelonephritis Active Problems: Pyelonephritis left Ureteral stone with hydronephrosis COPD exacerbation ([facility])/ Acute on chronic hypoxemic respiratory failure Acute on chronic respiratory failure ([facility]) Type 2 diabetes mellitus with hyperglycemia, with long-term current use of ins ulin ([facility]) Hematemesis Acute vaginitis Severe obesity (BMI >= 40) ([facility]) LOS: 2 days POD#2 s/p cystoscopy and left ureteral stent for 5 mm left proximal ureteral rosalind culus, bilateral hydronephrosis, acute renal failure, and urosepsis - Renal U/S film and report reviewed. This confirmed resolution of bilateral hy dronephrosis. 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 Currently on Rocephin and Micafungin. Await cx's -Left flank pain likely from stent. Continue supportive care. Currently on Det rol LA and PRN Harrell/Fentanyl -Left URS as outpt once recovered - Continue inpatient care - Appreciate assistance from Hospitalist and ICU physicians Electronically signed by Arabella Irwin 09/01/2019 8:50 AM R OPERATOR Associated attestation - Judson Hernandez MD - 09/01/2019 10:15 PM LEVER OPERATOR I agree with Arabella Irwin NP's findings, assessment and plan as documented i n the note below. Judson Hernandez * Sharona English PharmD - 08/31/2019 6:47 PM LEVER OPERATOR Provider Contacted: Chuckie Short Date of Contact: 08/31/19 Time of Contact: [phone] Results for orders placed or performed during [...] Marleen Cleaning MD - 08/31/2019 6:39 PM LEVER OPERATOR Ms. Iisah Benítez is a 69 y.o. year-old female [...] Marleen Snyder MD, 08/31/2019, 6:39 PM R OPERATOR * Chuckie Short MD - 08/31/2019 2:37 PM LEVER OPERATOR [facility] Hospitalist - Progress Note Patient Name: Isiah Benítez Account No: [id number] Date of : 1950 Date of Admission: [...] cbc. 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 Room: [address] [place] [address] Diet: Diet-Low Fat/Chol, 2gm Na, Consistent Carbohydrate [...] OR prochlorperazine, sodium chloride Chuckie Short MD [facility] . High med decision making. R OPERATOR * Janet Aragon MD - 08/31/2019 8:22 AM LEVER OPERATOR [facility] Progress Note Subjective: Interval History: ICU [...] urine cloudy Assessment/Plan: Principal Problem: Severe sepsis ([facility]) Active Problems: Pyelonephritis left Ureteral stone with hydronephrosis COPD (chronic obstructive pulmonary disease) ([facility]) Acute on chronic respiratory failure ([facility]) Type 2 diabetes mellitus with hyperglycemia, with long-term current use of ins ulin ([facility]) Hematemesis Acute vaginitis Sinus tachycardia Severe obesity (BMI >= 40) ([facility]) LOS: 1 day POD#1 s/p left ureteral [...] by Janet Aragon 08/31/2019 8:22 AM R OPERATOR * Ciaran Newman MD - 08/31/2019 2:36 AM LEVER OPERATOR Ms. Isiah Benítez is a 69 y.o. year-old female who presented on 08/30/2019 with Principal Problem: Severe sepsis ([facility]) Active Problems: Pyelonephritis left Ureteral stone with hydronephrosis COPD (chronic obstructive pulmonary disease) ([facility]) Acute on chronic respiratory failure ([facility]) Type 2 diabetes mellitus with hyperglycemia, with long-term current use of ins ulin ([facility]) Hematemesis Acute vaginitis Sinus tachycardia 2 PM [...] Ciaran Newman MD, 08/31/2019, 2:37 AM R OPERATOR * Courtney Brown, RT - 08/30/2019 6:31 PM LEVER OPERATOR [facility] Initial RATE Note 08/30/2019 6:32 PM A RATE assessment and treatement plan was performed on Isiah Do Earline, : 08/14 The primary Pulmonary/Respiratory related diagnosis [...] No data recorded No data recorded [employer] providing the home oxygen/equipment is: No data recorded The patient states she does not use assistive ventilatory support devices at [facility]. Assistive ventilatory support devices include: No data recorded Settings are: No data recorded @[facility]([id number]])@ No data recorded No data recorded No data recorded The [employer] providing the home ventilator equipment is: No [...] CPAP, BiPAP, Mechanical Ventilation Medical Protocol R OPERATOR documented in this encounter H&P Notes * Jun Licona MD - 08/30/2019 5:38 PM LEVER OPERATOR [facility] Hospitalist - History & Physical Patient Name: Isiah Benítez Account No: [id number] Date of : 1950 Date of Admission: [...] Refusal of blood transfusions as patient is Sikh Sleep apnea CPAP use Type 2 diabetes mellitus with hyperglycemia, with long-term current use of i nsulin ([facility]) 06/29/2016 Urinary calculi Urinary incontinence Urinary [...] joann es a day. vit A/vit C/biotin/zinc/copper ([id number],VIT A,C-BIOTIN, ORAL) Take by tanna th daily. [...] results (as indicated), current inpatient medications and office support clerk notes with pertainent findings noted within the assessment/plan. I have personally re viewed and updated the patient's past medical history, past surgical history, fa carmelo history and social history as appropriate. Assessment/Plan Ms. Isiah Benítez is a 69 y.o. female who was admitted on 08/30/2019 with complain t of Hematemesis and Dizziness. * Severe sepsis ([facility]) Meets w HR, WBC, UTI, elevated lactate. [...] cbc. 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 Wean back to baseline 3L NC and nighttime CPAP for sasha COPD (chronic obstructive pulmonary disease) ([facility]) Was getting rx for copd exacerbation--taper steroids, [...] as note d above. Jun Licona MD [facility] . R OPERATOR documented in this encounter Consult Notes * Delores Mckinley RN - 08/31/2019 5:30 PM LEVER OPERATOR Associated Order(s): CONSULT - VASCULAR ACCESS TEAM [...] oozing Delores Mckinley 08/31/2019 5:30 PM R OPERATOR * Arabella Irwin RN ANP - 08/30/2019 2:33 PM LEVER OPERATOR [facility] UR[facility]Y CONSULT NOTE Patient: Isiah Benítez Age: [...] mental status. Labs rev iewed. WBC 12.26K. 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 Lactate 3.9. She had a fever [...] Refusal of blood transfusions as patient is Sikh Sleep apnea CPAP use Type 2 diabetes [...] STENT PLACEMENT; Surgeon: Darin Huber MD; Location: [facility] Main OR; Service: Urology; Laterality: Left; CYSTOSCOPY, RETROGRADE PYELOGRAM, URETEROSCOPY, LASERLITHOTRIPSY, WITH URETE RAL STENT PLACEMENT Left 08/02/2019 Procedure: CYSTOSCOPY, LEFT RETROGRADE PYELOGRAM, LEFT URETEROSCOPY, LASER LITH OTRIPSY, LEFT URETERAL STENT EXCHANGE; Surgeon: Darin Huber MD; Location: [facility] Main OR; Service: Urology; Laterality: Left; HAND [...] NIGHT. E11.9 10 mL 5 insulin syringe (Handprint ULTRA-FINE) 0.3 mL 31 gauge x 5/16 [...] day. 30 tablet 0 vit A/vit C/biotin/zinc/copper ([id number],VIT A,C-BIOTIN, ORAL) Take by mouth daily. ALLERGIES: [...] file Gets together: Not on file Attends amish service: Not on file Active member of [...] 02:14 PM Positive (A) Negative Final Specific [place], UA Date/Time Value Ref Range Status 08/30/2019 [...] Hepatomegaly and hepatic steatosis. READING SITE: [facility] Xr Chest Single View Frontal Result Date: 08/30/2019 Mild bibasilar subsegmental atelectasis. No discrete focal consolidation. READING SITE: [facility] Xr Chest Single View Frontal Result Date: 08/28/2019 Stable bandlike opacity in the left midlung zone likely fibrosis/scarring. No discrete focal consolidation. READING SITE: [facility] ASSESSMENT/PLAN: 1. Left proximal ureteral calculus [...] will continue to follow ile in-house. R OPERATOR Associated attestation - Janet Aragon MD - 08/30/2019 3:29 PM LEVER OPERATOR Pt seen and films reviewed. Needs emergent [...] Dirk Valencia MD - 08/30/2019 12:21 PM LEVER OPERATOR Associated Order(s): Critical Care 08/30/2019 [facility] History Chief Complaint Patient presents [...] Refusal of blood transfusions as patient is Sikh Sleep apnea CPAP use Type 2 diabetes mellitus with hyperglycemia, with long-term current use of i nsulin ([facility]) 06/29/2016 Urinary calculi Urinary incontinence Urinary [...] STENT PLACEMENT; Surgeon: Darin Huber MD; Location: [facility] Main OR; Service: Urology; Laterality: Left; CYSTOSCOPY, RETROGRADE PYELOGRAM, URETEROSCOPY, LASERLITHOTRIPSY, WITH URETE RAL STENT PLACEMENT Left 08/02/2019 Procedure: CYSTOSCOPY, LEFT RETROGRADE PYELOGRAM, LEFT URETEROSCOPY, LASER LITH OTRIPSY, LEFT URETERAL STENT EXCHANGE; Surgeon: Darin Huber MD; Location: [facility] Main OR; Service: Urology; Laterality: Left; HAND [...] Negative Ketones Urine Negative Negative mg/dL Specific [place], UA >=1.030 1.001 - 1.030 Hemoglobin Urine [...] Hepatomegaly and hepatic steatosis. READING SITE: [facility] XR Chest single view frontal Final Result Mild bibasilar subsegmental atelectasis. No discrete focal consolidation. READING SITE: [facility] Retrograde Urography in OR (Results Pending) I [...] Admit Dirk Valencia MD 08/30/19 1503 R OPERATOR * Cecilia Clifton RN - 08/30/2019 11:18 AM LEVER OPERATOR Bed: [facility] Expected date: Expected time: Means of arrival: Comments: amr R OPERATOR documented in this encounter Miscellaneous Notes * Hospital Course - Cecilia Israel DO - 09/08/2019 4:03 PM LEVER OPERATOR Ms. Isiah Benítez is a 69 y.o. [...] and will complete a slow taper at [facility]. Her blood pressure was elevated and she was started on hydrochlorothiazide in ad dition to her normal home medication regimen. Urology performed a cystoscopy with stent placement. She will need to follow-up with them in 2 to 3 weeks for definitive stone management and stent removal. R OPERATOR * Care Progression Final DC Note - Cathy Fuller RN - 09/07/2019 12:07 PM LEVER OPERATOR Final Discharge Note Final Discharge Disposition: 06-Home Under Care of [facility] Discharge goal and plan is mutually agreed upon by patient and care team. Patient will discharge to: home with daughter and [facility] Transportation: daughter Discharge Time: when ready Special Instructions: Met with pt and she has selected [facility]. Discharge packet faxed and confirmed with Aury in intake that they are able to a ccept pt for services. Cathy Fuller SHANK PAPERER Furniture Upholstery Mechanic [phone] R OPERATOR * Therapy Note - Mirella Bautista, OT - 09/07/2019 10:29 AM LEVER OPERATOR 09/07/19 1029 OT Visit Info Attempted but was unable to see patient (date) 09/07/19 Reason patient was not seen Pt refused OT reason not seen - extended comment She reports that she is tired and does not want to participate in therapy at this time. Will continue to follow. Thank you R OPERATOR * End of Shift Note - Aline Rivas RN - 09/07/2019 4:46 AM LEVER OPERATOR End of Shift Summary and Plan of [...] measures as appropriate, monitor urine output R OPERATOR * End of Shift Note - Estella Hameed RN - 09/06/2019 6:25 PM LEVER OPERATOR End of Shift Summary and Plan of [...] measures as appropriate, monitor urine output R OPERATOR * Discharge Planning - Letty Bruce LMSW - 09/06/2019 3:31 PM LEVER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 recent of 4 results within the time period is included. Pathologist [facility] Culture Result No Growth at 5 days [facility] Specimen Blood Narrative Performed At 20ml rh [facility] Performing Organization Address City/[facility] Cliniccony Ph one Number [address] [address] LABORATORIES [facility] Lab [address] [place] [address] * Troponin (09/03/2019 9:00 PM LEVER OPERATOR) Only the most recent of 4 results within the time period is included. Pathologist [facility] Troponin <0.01 0.00 - 0.03 ng/mL [facility] Comment: Cedric Ramos Troponin Value [place] [facility] Interpretation 0.00 - 0.03 Healthy 0.04 - 0.12 Increased Cardiac Risk >0.12 Myocardial Infarction Troponin may not become elevated until 6 to 8 hours after onset of symptoms. Specimen Blood Performing Organization Address [facility] Ph one Number [facility] [address] [facility] [address] [facility] Ramos [address] [facility] [place] [address] [place] [facility] * Electrocardiogram (ECG) (09/03/2019 8:23 PM LEVER OPERATOR) Only the most recent of 2 results within the time period is included. QRSd 102 [facility] QT 388 [facility] QTC 481 [facility] ECGHR 92 [facility] ECGPR 148 [facility] Specimen Narrative Performed At [facility] Test Date: 2019-09-03 Pat Name: ISIAH BENÍTEZ Department: SI1 Room: 4065 Gender: Female Sql Dba: [id number] : 1950 Requested By: CHUCKIE SHORT Order Number: [id number] Reading MD: Omar Ramirez Measurements Intervals [place] Rate: 92 P: 59 DC: 148 QRS: 38 QRSD: 102 T: 50 QT: 388 QTc: 481 Interpretive Statements SINUS RHYTHM Electronically Signed On 09-15-2019 11:2 3:15 LEVER OPERATOR by Omar Ramirez Procedure Note Interface, External Ris In - 09/15/2019 11:23 AM LEVER OPERATOR [facility] [place] Test Date: 2019-09-03 Pat Name: ISIAH BENÍTEZ Department: SI1 Room: 4065 Gender: Female Sql Dba: [id number] : 1950 Requested By: CHUCKIE SHORT Order Number: [id number] Reading MD: Omar Ramirez Measurements Intervals [place] Rate: 92 P: 59 DC: 148 QRS: 38 QRSD: 102 T: 50 QT: 388 QTc: 481 Interpretive Statements SINUS RHYTHM Electronically Signed On 09-15-2019 11:23:15 LEVER OPERATOR by Omar Ramirez Performing Organization Address City/State/Zipcode Ph one Number [facility] * US Renal complete (08/31/2019 2:11 PM LEVER OPERATOR) Specimen Impressions Performed At Unremarkable renal ultrasound. LEVI No suspicious renal mass identified. No evidence of hydronephrosis. READING SITE: [facility] Narrative Performed At Patient: ISIAH BENÍTEZ Sex#: F #: 1950 Jose #: [id number] Location: [facility] ICU3 4076-01 Accessi on#: [id number] Procedure Requested: [id number] US RENAL COMPLETE Reason for Exam: ARF, [...] Rad Results In - 08/31/2019 2:23 PM LEVER OPERATOR Patient: ISIAH BENÍTEZ Sex#: F #: 1950 Jose#: [id number] Location: [facility] 4 [facility] 4076-01 Procedure Requested: [id number] US RENAL COMPLETE Reason for Exam: ARF, [...] identified. No evidence of hydronephrosis. READING SITE: [facility] Address City/State/Zipcode Ph one Number [place] * Respiratory Panel by PCR (08/31/2019 11:35 AM LEVER OPERATOR) Adenovirus Not Detected Not Detected [facility] Bordetella Not Detected Not Detected [facility] Lab Chlamydophila Not Detected Not Detected [facility] pneumoniae [facility] Coronavirus Not Detected Not Detected [facility] 229E [facility] Coronavirus Not Detected Not Detected [facility] HKU1 [facility] Coronavirus Not Detected Not Detected [facility] NL63 [facility] Coronavirus Not Detected Not Detected [facility] OC43 [facility] Human Not Detected Not Detected [facility] Metapneumovirus [facility] (hMPV) Human Not Detected Not Detected [facility] Rhinovirus [facility] Enterovirus Influenza A Not Detected Not Detected [facility] Influenza B Not Detected Not Detected [facility] Mycoplasma Not Detected Not Detected [facility] pneumoniae [facility] Parainfluenza Not Detected Not Detected [facility] Virus (PIV) 1 [facility] Parainfluenza Not Detected Not Detected [facility] Virus (PIV) 2 Hospital Lab Parainfluenza Not Detected Not Detected [facility] Virus (PIV) 3 Hospital Lab Parainfluenza Not Detected Not Detected [facility] Virus (PIV) 4 Hospital Lab Respiratory Detected (A) Not Detected [facility] Syncytial Virus [facility] Pl Source NASOPHAR [facility] Specimen Nasopharynx, Performing Organization Address City/State/[facility] Cliniccode Ph one Number [facility] [address] [place] [address] LABORATORIES [facility] Lab [address] [place] [address] * Lactate Venous WB (08/30/2019 10:51 PM LEVER OPERATOR) Only the most recent of 3 results within the time period is included. Lactate Venous 1.9 0.0 - 2.0 mmol/L [facility] [place] [facility] Specimen Blood Narrative Performed At Reflex sepsis screen >2.0 [facility] Performing Organization Address City/[facility] Ph one Number [facility] [address] [facility] [employer] Media NetworkValero [place], [place] [id number] [facility] Mancusos [address] [place] [address] [place] [facility] [address] [facility] [employer] [place] [facility] [place] [address], [facility] * Glucose (08/30/2019 4:48 PM LEVER OPERATOR) Glucose 304 (H) 70 - 100 mg/dL [facility] [place] [facility] Specimen Blood Narrative Performed At Reflex order. Previous POC GLUCOSE >500 [facility] Performing Organization Address City/State/[facility] Cliniccode Ph one Number [facility] [address] [facility]eugenia Se[place], [place] [phone] [facility] Israel[facility] [address] [place] [address] [place] [facility] [address] [place] [address], [facility] * FL Retrograde Urography in OR (08/30/2019 4:20 PM LEVER OPERATOR) Specimen Impressions Performed At FINDINGS/IMPRESSION: 1 intraoperative fluoroscopicvie w is submitted. LEVI Total fluoroscopy time was 19.4 seconds . Left ureteral stent has been placed. The proximal aspect is coiled w ithin the decompressed left renal pelvis. The distal aspect is not includ ed on this examination. Please see procedure note for further evaluati on. READING LOCATION: [facility] Narrative Performed At Patient: ISIAH BENÍTEZ Sex#: F #: 1950 Jsoe #: [id number] Location: [facility] MAIN OR NONE Procedure Requested: [id number] FL RETRO GRADE UROGRAPHY IN OR Reason for Exam: abdomen pain Exam Ordered: 08/30/2019 144 0 Exam Date/Time: 08/30/2019 1620 Begin exam date/time: 08/30/2019 1530 STUDY/PROCEDURE: Intraoperative fluoros copic procedure guidance INDICATION: Left ureteral calculus, hyd ronephrosis. COMPARISON: CT of the abdomen and pelvi s with contrast dated September 09, 2019. Procedure Note Interface, Rad Results In - 08/30/2019 7:33 PM LEVER OPERATOR Patient: ISIAH BENÍTEZ Sex#: F #: 1950 Jose#: [id number] Location: [facility] MAIN OR NONE Procedure Requested: [id number] FL RETROGRADE UROGRAPHY IN OR Reason for [...] procedure note for further evaluation. [facility] Performing Organization Address [facility] Ph one Number LEVI * Culture, Urine (08/30/2019 3:54 PM LEVER OPERATOR) Only the most recent of 2 results within the time period is included. Isolate 1 >100,000 Cfu/ml (A) [facility] Isolate 1 Steven albicans (A) [facility] Isolate 1 In the absence of symptoms, [facility] Steven is generally Hospital Lab considered normal ciera. No therapy indicated unless high risk (, or neutropenic) or undergoing urologic procedure. If Ballard catheter present, remove or replace when able. (A) Specimen Urine - Urine Antibiotic Method Susceptibility Organism FLUCONAZOLE <=1: Sensitive Steven albicans VORICONAZOLE <=0.12: Sensitive Steven albicans Performing Organization Address [facility] one Number [address] [address] LABORATORIES [facility] Lab [address] [place] [address] * Culture, Fungus (08/30/2019 3:54 PM LEVER OPERATOR) Isolate 1 Steven albicans (A) [facility] Specimen Urine - Urine Performing Organization Address [facility] one Number [address] [address] LABORATORIES [facility] Lab [address] [place] [address] * Culture, AFB (08/30/2019 3:54 PM LEVER OPERATOR) AFB Stain No Acid Fast Bacilli seen on [facility] fluorescent stain. Hospital Lab Culture result No Acid fast bacilli isolated [facility] Myc[facility] at 6 weeks Hospital Lab y Specimen Urine - Urine Performing Organization Address [facility] one Number [address] [address] LABORATORIES [facility] Lab [address] [place] [address] * Urinalysis Microscopic Only (08/30/2019 2:14 PM LEVER OPERATOR) Microscopic RBC 6 - 10 (A) 0 - 5 /hpf [facility] Urine [facility] [place] [facility] Microscopic WBC >40 (A) 0 - 5 /hpf [facility] Urine [facility] [place] [facility] Epithelial Absent Absent [facility] Cells [facility] [place] [facility] Hyaline Cast Large (A) Absent [facility] [place] [facility] Bacteria Absent Absent [facility] [place] [facility] WBC Clumps Present (A)Comment: WBC count Absent [facility] may be under-estimated due to [facility] the presence of WBC clumps. [place] [facility] Yeast Present (A) Absent [facility] [place] [facility] Specimen Catheter Urine Performing Organization Address City/State/[facility] one Number [facility] [address] [place] [address] [facility] [facility] Cedric Israel's [address] [facility] [place] [address] [place] [facility] * Urinalysis Reflex (08/30/2019 2:14 PM LEVER OPERATOR) Appearance, Yellow [facility] Urine [facility] [place] [facility] Glucose Urine >=1000 (A) Negative mg/dL [facility] [place] [facility] Bilirubin Urine Negative Negative [facility] [place] [facility] Ketones Urine Negative Negative mg/dL [facility] [place] [facility] Specific >=1.030 1.001 - 1.030 [facility] [place], UA [facility] [place] [facility] Hemoglobin Large (A) Negative [facility] Urine [facility] [place] [facility] PH Urine 5.0 5.0 - 8.0 [facility] [place] [facility] Protein Urine 30 (A) Negative mg/dL [facility] Qual [facility] [place] [facility] Urobilinogen Negative Negative EU/dL [facility] Urine [facility] [place] [facility] Nitrite Urine Negative Negative [facility] [place] [facility] Leukocyte Positive (A) Negative [facility] Esterase [facility] [place] [facility] Specimen Catheter Urine Performing Organization Address City/State/Zipcode Ph one Number [facility] [address] [place], [place] [address] [facility] [address] [facility] [address] [place], [place] [address] [place] [facility] * CT Abdomen Pelvis w contrast (08/30/2019 12:48 PM LEVER OPERATOR) Specimen Impressions Performed At 1. 5 mm proximal left ureteral stone and mild left-si ded hydronephrosis. LEVI No other nephroureterolithiasis is seen . 2. 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 Moderate urinary bladder distention. 3. Hepatomegaly and hepatic steatosis. READING SITE: [facility] Narrative Performed At Patient: ISIAH BENÍTEZ Sex#: F #: 1950 Jose #: [id number] Location: [facility] ED Procedure Requested: [id number] CT ABDOM EN PELVIS W CONTRAST Reason [...] Rad Results In - 08/30/2019 1:09 PM LEVER OPERATOR Patient: ISIAH BENÍTEZ Sex#: F #: 1950 Jose#: [id number] Location: [facility] ED SED-07 Procedure Requested: [id number] CT ABDOMEN PELVIS W CONTRAST Reason for [...] Hepatomegaly and hepatic steatosis. READING SITE: [facility] Performing Organization Address City/[facility] Ph one Number LEVI * Influenza PCR (08/30/2019 12:29 PM LEVER OPERATOR) Influenza A PCR Not Detected Not Detected [facility] [place] [facility] Influenza B PCR Not Detected Not Detected [facility] [place] [facility] Source Nasopharynx [facility] Lab Specimen NASOPHARYNGEAL SWAB Performing Organization Address City/[facility] Ph one Number [facility] [address] [facility] [place] [address] [facility] leoneleugenia Mancusos [address] [facility]'s [place] [address] [place] [facility] * ED PROCEDURE BASIC - CRITICAL CARE (08/30/2019 12:21 PM LEVER OPERATOR) Narrative Performed At Dirk Valencia MD 08/30/2019 [...] Blood, diagnostic (non-neoplasm screening) (08/30/2019 12:14 PM LEVER OPERATOR) Fecal Occult Negative Negative [facility] Blood Cedric Ramos [place] [facility] Sample 1 08/30/2019 [facility] Collection Date Cedric Ramos [place] [facility] Specimen Stool Performing Organization Address [facility] one Number [facility] [address] [place] [facility] [place] [address] [facility] [address] [place] [address] [place] [facility] * Magnesium (08/30/2019 12:13 PM LEVER OPERATOR) Magnesium 1.7 1.4 - 2.7 mg/dL [facility] [place] [facility] Specimen Blood Performing Organization Address [facility] one Number [facility] [address] [place] [address] [facility] [address] [place] [address] [place] [facility] * BNP (08/30/2019 12:13 PM LEVER OPERATOR) NTproBNP 340 pg/mL [facility] Comment: Cedric Mancusos NT-proBNP Reference Ranges: [place] [facility] <50 yr <450 pg/mL 50-75 yr <900 pg/mL >75 yr <1800 pg/mL A cutoff value of 1200 pg/mL is recommended in patients 50 to 70 years of age with a GFR between 30 and 60. NT-proBNP is unreliable in patients with GFR <30. Specimen Blood Performing Organization Address [facility]/Zipcode Ph one Number [facility] [address] [place], [place] [phone] [facility] Mancusos [address] [place] [address] [place] [facility] * Lipase (08/30/2019 12:13 PM LEVER OPERATOR) Lipase 20 (L) 23 - 300 IU/L [facility] [place] [facility] Specimen Blood Performing Organization Address City/State/[facility] Clinic[facility] Ph one Number [facility] [address] [place] [place], [place] [phone] [facility] Mancusos [address] [place] [address] [place] [facility] * Comprehensive Metabolic Panel (08/30/2019 12:13 PM LEVER OPERATOR) Sodium 137 133 - 147 MEQ/L [facility] [place] [facility] Potassium 4.4 3.5 - 5.3 MEQ/L [facility] [place] [facility] Chloride 97 96 - 112 MEQ/L [facility] [place] [facility] Carbon Dioxide 27 20 - 32 MEQ/L [facility] [place] [facility] Anion Gap 14 5 - 17 [facility] [place] [facility] Calcium 9.2 8.4 - 10.5 mg/dL [facility] [place] [facility] Glucose 439 (H) 70 - 100 mg/dL [facility] [place] [facility] Protein Total 8.8 (H) 6.0 - 8.2 g/dL [facility] Serum [facility] [place] [facility] Albumin 4.5 3.5 - 5.0 g/dL [facility] [place] [facility] Alkaline 124 42 - 140 IU/L [facility] Phosphatase [facility] [place] [facility] Alanine 33 0 - 34 IU/L [facility]'s Aminotransferas [facility] e [place] [facility] Aspartate 36 15 - 46 IU/L [facility] e [place] [facility] Bilirubin Total 0.5 0.2 - 1.3 mg/dL [facility] [place] [facility] Blood Urea 26 7 - 26 mg/dL [facility] [place] [facility] Creatinine 1.2 (H) 0.4 - 1.1 mg/dL [facility] [place] [facility] eGFR Female AA 54 (L) 60 - 200 [facility] mL/min/1.73sq m Cedric Israels [place] [facility] eGFR Female 45 (L) 60 - 200 [facility] Non-AA mL/min/1.73sq m Cedric Israeleugenia [facility] [place] [facility] Specimen Blood Performing Organization Address City/State/Zipcode Ph one Number [facility] ISRAELEugenia [address] [facility]enia [place] [address] [facility] [facility] Jhonataneugenia [address] [facility] [place] [address] [place] [facility] * CBC and Diff (manual diff if necessary) (08/30/2019 12:13 PM LEVER OPERATOR) WBC 12.26 (H) 4.00 - 11.00 TH/uL [facility] [place] [facility] RBC 4.67 4.00 - 5.00 MIL/uL [facility] Hemoglobin 15.1 (H) 12.0 - 15.0 g/dL [facility] [place] [facility] Hematocrit 45 36 - 45 % [facility] [place] [facility] MCV 97 80 - 99 fL [facility] [facility] MCH 32 27 - 34 pg [facility] MCHC 33 32 - 36 % [facility] RDW 13.1 11.5 - 14.5 % [facility] Platelet Count 161 140 - 400 TH/uL [facility] MPV 10.8 9.4 - 12.3 fL [facility] Nucleated RBCs 0 0 - 0 /100 [facility] % Neutrophils 87 (H) 45 - 78 % [facility] %Lymphocytes 10 (L) 15 - 47 % [facility] %Monocytes 3 0 - 12 % [facility] %Eosinophils 0 0 - 7 % [facility] %Basophils 0 0 - 2 % [facility] # Granulocytes 10.67 (H) 1.7 - 6.8 TH/uL [facility] # Lymphocytes 1.23 1.0 - 3.3 TH/uL [facility] # Monocytes 0.37 0.2 - 0.9 TH/uL [facility] # Eosinophils 0.00 0.0 - 0.4 TH/uL [facility] # Basophils 0.05 0.0 - 0.1 TH/uL [facility] Left Shift Present (A) Absent [facility] RBC Morphology Normal Normal [facility] Specimen Blood Performing Organization Address City/State/[facility] Ph one Number [facility] [address] [facility] [address] [facility] [address] [facility] [place] [address] [facility] documented in this encounter Visit Diagnoses [...] not exceed 2 GM/DAY., 09/02/2019 11:25 PM LEVER OPERATOR 2.5 mg albuterol (ACCUNEB) 2.5 mg/3 mL (0.083 Given %) nebulizer solution 2.5 mg 2.5 mg, Nebulization, Every 4 hours PRN , wheezing, shortness of air, Starting 08/30/19 at 1725 2.5 mg Given 09/01/2019 1:03 AM LEVER OPERATOR 09/05/2019 3:01 PM LEVER OPERATOR 2 mg alteplase (CATHFLO ACTIVASE) injection 2 Given mg 2 mg, Intra-Catheter, As needed, declotting central catheter or sluggish/occluded CVC line, Starting u 08/31/19 at 1724, Use 2 mg/2 mL to declot catheter as needed, Declot catheter per Central Venous Access Device, Declottin g procedure in Melissa Refrigerate. Reconstitute with 2.2 mL sterile water for injection, 08/31/2019 6:33 PM LEVER OPERATOR 15 mL aluminum-magnesium hydroxide-simethicone Given (MAALOX PLUS) 400-400-40 mg/5 mL suspension 15 mL 15 mL, Oral, Every 4 hours PRN, indigestion, Starting Wed08/30/19 at 1723, Avoid if estimated glomerular filtration rate (eGFR) is less than 20 mL/minute/1.73m2., 09/06/2019 8:51 PM LEVER OPERATOR 25 mg amitriptyline (ELAVIL) tablet 25 mg Given 25 mg, Oral, Nightly, First dose on Wed08/30/19 at 2100 25 mg Given 09/05/2019 8:09 PM LEVER OPERATOR 25 mg Given 09/04/2019 8:33 PM LEVER OPERATOR 09/06/2019 8:51 PM LEVER OPERATOR 40 mg atorvastatin (LIPITOR) tablet 40 mg Given 40 mg, Oral, Nightly, First dose on Wed08/30/19 at 2100 40 mg Given 09/05/2019 8:09 PM LEVER OPERATOR 40 mg Given 09/04/2019 8:33 PM LEVER OPERATOR benzocaine-menthol (CEPACOL) lozenge 1 lozenge 1 lozenge, Buccal, Every 1 hour prn, sore throat, Starting Wed08/30/19 at 172 4 09/07/2019 2:48 PM LEVER OPERATOR 100 mg benzonatate (TESSALON) capsule 100 mg Given 100 mg, Oral, 3 times daily PRN, cough, Starting Wed08/30/19 at 1753, DO NOT CRUSH OR CHEW., 100 mg Given 09/07/2019 10:06 AM LEVER OPERATOR 100 mg Given 09/05/2019 8:27 PM LEVER OPERATOR bisacodyl (DULCOLAX) suppository 10 mg 10 mg, Rectal, Daily PRN, constipation, constipation in patients who are NPO, i n patients who have nausea, or in patient s where there is any concern about ileus or bowel obstruction., Starting Wed08/30/19 at 1723, Hold these medications if patient has had loose stool or diarrhea within previous 24 hours., 09/07/2019 10:06 AM LEVER OPERATOR 20 mg citalopram (CeleXA) tablet 20 mg Given 20 mg, Oral, Daily, First dose on Wed08/30/19 at 1745 20 mg Given 09/06/2019 9:23 AM LEVER OPERATOR 20 mg Given 09/05/2019 8:33 AM LEVER OPERATOR 09/04/2019 3:35 AM LEVER OPERATOR 0.1 mg cloNIDine HCl (CATAPRES) tablet 0.1 mg Given 0.1 mg, Oral, Every 8 hours PRN, SBP > 180 and/or DBP > 100, Starting Wed09/04/19 at 0322 09/07/2019 2:29 PM LEVER OPERATOR 10 mg cyclobenzaprine (FLEXERIL) tablet 10 mg Given 10 mg, Oral, 3 times daily PRN, muscle spasms, Starting Wed08/30/19 at 1726 10 mg Given 09/07/2019 10:05 AM LEVER OPERATOR 10 mg Given 09/04/2019 8:50 PM LEVER OPERATOR dextrose (D50W) 50 % injection 25-50 mL [...] NOT CRUSH OR CHEW., 09/07/2019 10:03 AM LEVER OPERATOR 40 mg Right Lo wer Abdomen enoxaparin (LOVENOX) syringe 40 mg Given 40 mg, Subcutaneous, Every 24 hours scheduled, First dose on Wed08/30/19 at 1745 40 mg Left Lower Abdomen Given 09/06/2019 9:24 AM LEVER OPERATOR 40 mg Right Lower Abdomen Given 09/05/2019 8:32 AM LEVER OPERATOR 09/06/2019 11:08 AM LEVER OPERATOR 50 mcg fentaNYL (SUBLIMAZE) injection 25-50 mcg [...] therapy., 50 mcg Given 09/05/2019 8:09 PM LEVER OPERATOR 50 mcg Given 09/05/2019 10:30 AM LEVER OPERATOR 09/07/2019 11:40 AM LEVER OPERATOR 400 mg 100 mL/hr fluconazole in NaCl (iso-osm) (DIFLUCAN) New Bag IVPB 400 mg 400 mg, Intravenous, at 100 mL/hr, Daily, Indications: CANDIDEMIA, C. albicans sensitive to fluconazole, Firs t dose on Wed09/06/19 at 1000 400 mg 100 mL/hr New Bag 09/06/2019 10:13 AM LEVER OPERATOR 09/07/2019 8:16 AM LEVER OPERATOR 1 puff fluticasone furoate-vilanterol (BREO Given ELLIPTA) 200-25 mcg/actuation inhaler 1 puff 1 puff, Inhalation, Daily, First dose o n Wed08/30/19 at 1745, Rinse mouth with water after use if patient not on vent. , 1 puff Given 09/06/2019 8:44 AM LEVER OPERATOR 1 puff Given 09/05/2019 7:49 AM LEVER OPERATOR 09/07/2019 10:07 AM LEVER OPERATOR 600 mg gabapentin (NEURONTIN) capsule 600 mg Given 600 mg, Oral, 3 times daily, First dose on Wed08/30/19 at 1745 600 mg Given 09/06/2019 8:51 PM LEVER OPERATOR 600 mg Given 09/06/2019 5:14 PM LEVER OPERATOR glucagon (GLUCAGEN) injection 1 mg 1 mg, Intramuscular, As needed, low blood sugar, low blood sugar, Starting Wed08/30/19 at 1725, Give if patient NPO and no IV access. May give IM or SQ in arm and turn patient on side. Reconstitute powder for injection by adding 1 mL of civil engineer helper-supplied sterile diluent or sterile water for injection [...] for injection by adding 1 mL of civil engineer helper-supplied sterile diluent o r sterile water for [...] less than 70 mg/dL., 09/07/2019 2:48 PM LEVER OPERATOR 200 mg guaiFENesin (ROBITUSSIN) 100 mg/5 mL Given syrup 200 mg 200 mg, Oral, Every 4 hours PRN, cough, Starting Wed08/30/19 at 1724 200 mg Given 09/07/2019 10:03 AM LEVER OPERATOR 200 mg Given 09/03/2019 3:05 AM LEVER OPERATOR 09/07/2019 10:05 AM LEVER OPERATOR 25 mg hydroCHLOROthiazide (HYDRODIURIL) tablet Given 25 mg 25 mg, Oral, Daily, First dose on Wed09/05/19 at 0900 25 mg Given 09/06/2019 9:24 AM LEVER OPERATOR 25 mg Given 09/05/2019 8:32 AM LEVER OPERATOR 09/07/2019 10:03 AM LEVER OPERATOR 0.125 mg hyoscyamine (LEVSIN/SL) SL tablet 0.125 Given mg 0.125 mg, Sublingual, Every 4 hours, First dose on Wed09/06/19 at 1200, For bladder spasms, 0.125 mg Given 09/07/2019 4:25 AM LEVER OPERATOR 0.125 mg Given 09/07/2019 12:48 AM LEVER OPERATOR 09/06/2019 8:51 PM LEVER OPERATOR 25 Units Right Lo wer Abdomen insulin glargine (LANTUS) injection 25 Given Units 25 Units, Subcutaneous, Nightly, First dose (after last modification) on Ju 08/31/19 at 2100 25 Units Right Arm Given 09/05/2019 8:06 PM LEVER OPERATOR 25 Units Left Lower Abdomen Given 09/04/2019 8:33 PM LEVER OPERATOR 09/07/2019 2:29 PM LEVER OPERATOR 9 Units Right Lo wer Abdomen insulin [...] Left Upper Abdomen Given 09/07/2019 6:23 AM LEVER OPERATOR 12 Units Right Upper Abdomen Given 09/07/2019 12:48 AM LEVER OPERATOR 08/30/2019 2:46 PM LEVER OPERATOR 2.5 mL Operativ e Site iohexol (OMNIPAQUE) 300 mg iodine/mL Given injection As needed, Starting Wed08/30/19 at 1446, Intra-op 09/07/2019 1:22 PM LEVER OPERATOR 3 mL ipratropium-albuterol (DUO-NEB) 0.5-3 Given mg/3 mL nebulizer solution 3 mL 3 mL, Inhalation, Every 4 hours, First dose (after last modification) on Wed09/06/19 at 0100 3 mL Given 09/07/2019 8:25 AM LEVER OPERATOR 3 mL Given 09/07/2019 3:51 AM LEVER OPERATOR 09/07/2019 10:06 AM LEVER OPERATOR 2 capsules lactobacillus (CULTURELLE) 10 billion Given cell capsule 2 capsule, Oral, Daily, First dose on Wed08/30/19 at 1815 2 capsules Given 09/06/2019 9:23 AM LEVER OPERATOR 2 capsules Given 09/05/2019 8:33 AM LEVER OPERATOR magnesium sulfate IVPB 2 gram (premix) 2 [...] (if able to monitor)., 09/05/2019 8:06 PM LEVER OPERATOR 3 mg melatonin tablet 3 mg Given 3 mg, Oral, Nightly PRN, sleep, Startin g Wed08/30/19 at 1724, Give 3-4 hours prio r to planned bedtime., 09/07/2019 10:04 AM LEVER OPERATOR 100 mg metoprolol tartrate (LOPRESSOR) tablet Given 100 mg 100 mg, Oral, 2 times daily, First dose on Wed08/30/19 at 2100, Hold for sbp < 100 or hr < 50, 100 mg Given 09/06/2019 8:52 PM LEVER OPERATOR 100 mg Given 09/06/2019 9:23 AM LEVER OPERATOR miconazole nitrate (ALOE VESTA) 2 % ointment Topical, 3 times daily PRN, perineal or skin fold redness, Starting Wed08/30/19 at 1724, Consult wound care if no improvement within 3 days., ondansetron (ZOFRAN) injection 4 mg 4 mg, Intravenous, Every 6 hours PRN, nausea/vomiting (2nd line), Starting We 08/30/19 at 1724 09/07/2019 2:29 PM LEVER OPERATOR 1 tablet oxyCODONE-acetaminophen (PERCOCET) 5-325 Given mg 1 tablet 1 tablet, Oral, Every 4 hours PRN, moderate pain (pain score 4-6), Startin g 09/04/19 at 1011, Do not exceed 4 GM/DAY of acetaminophen. If 65 or olde r do not exceed 3 GM/DAY. If chronic alcoholic do not exceed 2 GM/DAY., 1 tablet Given 09/07/2019 10:07 AM LEVER OPERATOR 1 tablet Given 09/07/2019 2:40 AM LEVER OPERATOR 09/07/2019 11:33 AM LEVER OPERATOR 40 mg pantoprazole (PROTONIX) injection 40 mg Given 40 mg, Intravenous, 2 times daily, Firs t dose on Wed08/30/19 at 2100, Dilute with 10 mL of 0.9% NaCl. DO NOT REFRIGERATE, 40 mg Given 09/06/2019 8:51 PM LEVER OPERATOR 40 mg Given 09/06/2019 9:23 AM LEVER OPERATOR 09/07/2019 10:07 AM LEVER OPERATOR 100 mg phenazopyridine (PYRIDIUM) tablet 100 mg [...] through a central line., 09/07/2019 10:06 AM LEVER OPERATOR 30 mg predniSONE (DELTASONE) tablet 30 mg Given 30 mg, Oral, Daily, Indications: prevention of cardiac transplant rejection, First dose (after last modification) on Wed09/05/19 at 0900, Give with food to reduce GI upset, 30 mg Given 09/06/2019 9:23 AM LEVER OPERATOR 30 mg Given 09/05/2019 8:33 AM LEVER OPERATOR prochlorperazine (COMPAZINE) injection 2.5-5 mg 2.5-5 mg, [...] Starting Wed08/30/19 at 1724 08/30/2019 2:46 PM LEVER OPERATOR 1,000 mL sterile water irrigation irrigation Given solution As needed, Starting Wed08/30/19 at 1445, Intra-op 3,000 mL Given 08/30/2019 2:45 PM LEVER OPERATOR 09/07/2019 10:04 AM LEVER OPERATOR 0.4 mg tamsulosin (FLOMAX) 24 hr capsule 0.4 mg Given 0.4 mg, Oral, Daily, First dose on Wed08/30/19 at 1800, DO NOT CRUSH OR CHEW., 0.4 mg Given 09/06/2019 9:24 AM LEVER OPERATOR 0.4 mg Given 09/05/2019 8:32 AM LEVER OPERATOR 09/07/2019 10:04 AM LEVER OPERATOR 2 mg tolterodine (DETROL) tablet 2 mg Given 2 mg, Oral, 2 times daily, First dose o n Wed08/30/19 at 2100 2 mg Given 09/06/2019 9:51 PM LEVER OPERATOR 2 mg Given 09/06/2019 9:24 AM LEVER OPERATOR documented in this encounter Additional Health Concerns Last Indicated Resolved Time Infection Onset Date 08/30/2019 08/30/2019 1:09 PM LEVER OPERATOR Influenza - Rule Out 08/30/2019 08/31/2019 09/17/2019 8:17 AM LEVER OPERATOR RSV 08/31/2019 documented as of this encounter
--- OUTSIDE RECORDS SUMMARY | 2020-03-12 09:07 | XMS REPORT | Encounter Summary ---
Author Author [facility] Organization [facility] Address Unknown Phone Unavailable Care Team Providers Care Engine Dispatcher Name Role Phone Ebony Sharp MD [...] Date Type Department Celso Palma, DO [address] [place] [address] [phone] Acute bronchitis, unspecified organism ( Primary Dx); COPD exacerbation (HCC) 08/28/2019 Emergency [facility] [address] [place] [address] Social History Date Tobacco Use Types Packs/Day [...] Comments Vital Sign 161/89 08/28/2019 4:15 PM SWIMMING POOL INSTALLER Blood Pressure 94 08/28/2019 3:39 PM SWIMMING POOL INSTALLER Pulse 37.3 C (99.2 F) 08/28/2019 1:50 PM SWIMMING POOL INSTALLER Temperature 18 08/28/2019 3:39 PM SWIMMING POOL INSTALLER Respiratory Rate 94% 08/28/2019 4:15 PM SWIMMING POOL INSTALLER Oxygen Saturation - - Inhaled Oxygen Concentration 102.1 kg (225 lb) 08/28/2019 11:11 AM SWIMMING POOL INSTALLER Weight - - Height 43.94 08/10/2019 8:35 AM SWIMMING POOL INSTALLER Body Mass Index documented in this encounter Discharge Instructions * Attachments The following attachments cannot be sent through Care Everywhere.* COPD FLARE (ROMANIAN) * Bronchitis, Acute (Malagasy) documented in this encounter Medications at Time [...] A/vit Take by mouth 0 C/biotin/zinc/copper daily. ([id number],VIT A,C-BIOTIN, ORAL) 06/26/2019 12/24/2019 amitriptyline (ELAVIL) 25 Take 1 tablet 90 tablet 1 MG tablet (25 mg total) by mouth nightly. 08/28/2019 09/07/2019 azithromycin (ZITHROMAX) Take 1 tablet [...] Celso Palma DO - 08/28/2019 2:39 PM SWIMMING POOL INSTALLER 08/28/2019 [facility] History Chief Complaint Patient presents with [...] Mucinex and DayQuil with no relief. Sh e is not currently on any inhalers or [...] Allergic rhinitis Anxiety Bronchitis, chronic ([facility]) Cataract 2011, 2012 bilat cateract surgery Chronic pain disorder back, ribs, and ankle. COPD (chronic obstructive pulmonary disease) ([facility]) Depression Draining postoperative wound 08/08/2016 Endometriosis Essential hypertension Fractures [address] in Left ankle MATA (generalized anxiety disorder) 09/24/2015 Hernia of abdominal cavity Kidney stone Mixed hyperlipidemia 09/24/2015 Morbid obesity due to excess calories ([facility]) 07/10/2016 On home oxygen therapy 2L - usually needs if has an exerbation of COPD, or resp illness SASHA on CPAP Osteoarthritis Refusal of blood transfusions as patient is Jainism Sleep apnea CPAP use Type 2 diabetes mellitus with hyperglycemia, with long-term current use of i nsulin ([facility]) 06/29/2016 Urinary calculi Urinary incontinence Urinary tract [...] PLACEMENT; Surgeon: Darin Huber MD; [place] [facility] [place]; Service: Urology; Laterality: Left; CYSTOSCOPY, RETROGRADE PYELOGRAM, URETEROSCOPY, LASERLITHOTRIPSY, WITH URETE RAL STENT PLACEMENT Left 08/02/2019 Procedure: CYSTOSCOPY, LEFT RETROGRADE PYELOGRAM, LEFT URETEROSCOPY, LASER LITH OTRIPSY, LEFT URETERAL STENT EXCHANGE; Surgeon: Darin Huber MD; [place] [facility] [place]; Service: Urology; Laterality: Left; HAND SURGERY Left 03/09/2019 [facility] REPAIR HYSTERECTOMY OOPHORECTOMY REMOVAL, HARDWARE, FOOT OR ANKLE Left 04/09/2017 Procedure: LEFT ANKLE REMOVAL OF HARDWARE WITH REVISION LEFT ANKLE ARTHRODESIS; Surgeon: Adelaida Olivas MD; [place] [facility] [place]; Service: Orthopedics; Later ality: Left; REPAIR, INCISIONAL HERNIA, LAPAROSCOPIC, USING MESH N/A 05/25/2018 Procedure: LAPAROSCOPIC INCISIONAL HERNIA REPAIR WITH MESH; Surgeon: Medardo Tate MD; [place] [facility] [place]; Service: General; Laterality: N/A; TONSILLECTOMY [...] Room Air . Interpretation: normal 2:41 PM [facility] Results for orders placed or performed [...] fibrosis/scarring. No discrete focal consolidation. READING SITE: [facility] DIAGNOSIS Problem List Items Addressed This [...] Dispo None Celso Palma DO 08/30/19 1203 MING POOL INSTALLER documented in this encounter Plan of Treatment Not on filedocumented as of this encounter Procedures Comments Procedure Name Priority Date/Time Associated Diag nosis XR CHEST SINGLE VIEW STAT 08/28/2019 FRONTAL 3:12 PM SWIMMING POOL INSTALLER COMPLETE BLOOD COUNT STAT 08/28/2019 3:00 PM SWIMMING POOL INSTALLER BASIC METABOLIC PANEL STAT 08/28/2019 3:00 PM SWIMMING POOL INSTALLER ECG STAT 08/28/2019 11:14 AM SWIMMING POOL INSTALLER documented in this encounter Results * XR Chest single view frontal (08/28/2019 3:12 PM SWIMMING POOL INSTALLER) Specimen Impressions Performed At Stable bandlike opacity in the left midlung zone like ly MCKESSON fibrosis/scarring. No discrete focal co nsolidation. READING SITE: [facility] Narrative Performed At Patient: ISIAH BENÍTEZ Sex#: F #: [id number] Jose #: [id number] [place] [facility] [place] Procedure Requested: [id number] XR CHEST SINGLE VIEW FRONTAL Reason for [...] Rad Results In - 08/28/2019 3:26 PM SWIMMING POOL INSTALLER Patient: ISIAH BENÍTEZ Sex#: F #: [id number] Jose#: [id number] [place] [facility] [place] Procedure Requested: [id number] XR CHEST SINGLE VIEW FRONTAL Reason for [...] fibrosis/scarring. No discrete focal consolidation. READING SITE: [facility] Performing Organization Address City/State/Zipcode Ph one Number LEVI * Basic Metabolic Panel (08/28/2019 3:00 PM SWIMMING POOL INSTALLER) Sodium 136 133 - 147 MEQ/L [facility] Potassium 4.1 3.5 - 5.3 MEQ/L [facility] Chloride 100 96 - 112 MEQ/L [facility] [place] [facility] Carbon Dioxide 29 20 - 32 MEQ/L [facility] [place] [facility] Anion Gap 7 5 - [facility] [place] [facility] Calcium 9.0 8.4 - 10.5 mg/dL [facility] [place] [facility] Glucose 260 (H) 70 - 100 mg/dL [facility] [place] [facility] Blood Urea 16 7 - 26 mg/dL [facility] Nitrogen [facility] [place] [facility] Creatinine 1.0 0.4 - 1.1 mg/dL [facility] [place] [facility] eGFR Female AA 66 60 - 200 [facility] mL/min/1.73sq m [facility] [place] [facility] eGFR Female 55 (L) 60 - 200 [facility] Non-AA mL/min/1.73sq [facility] [place] [facility] Specimen Blood Performing Organization Address City/State/Zipcode Ph one Number [facility] [address] [place] [address] [facility] [address] [facility] [place] [address] [place] * Complete Blood Count (08/28/2019 3:00 PM SWIMMING POOL INSTALLER) [facility] WBC 9.79 4.00 - 11.00 TH/uL [facility] eugenia Israels [place] [facility] RBC 4.42 4.00 - 5.00 MIL/uL [facility] [place] [facility] Hemoglobin 14.3 12.0 - 15.0 g/dL [facility] [place] [facility] Hematocrit 43 36 - 45 % [facility] [place] [facility] MCV 97 80 - [address] [facility] [place] [facility] MCH 32 27 - 34 pg [facility] [place] [facility] MCHC 33 32 - 36 % [facility] [place] [facility] RDW 13.0 11.5 - 14.5 % [facility] [place] [facility] Platelet Count 151 140 - 400 TH/uL [facility] MPV 9.9 9.4 - 12.3 fL [facility] Nucleated RBCs 0 0 - 0 /100 [facility] Specimen Blood Performing Organization Address City/[facility] [email or web address] Ph one Number [facility] [address] [facility] [place] [address] [facility] [address] [facility] [place] [address] [place] [facility] * Electrocardiogram (ECG) (08/28/2019 11:14 AM SWIMMING POOL INSTALLER) QRSd 102 TRACEMASTER QT 396 TRACEMASTER QTC 446 TRACEMASTER ECGHR 76 TRACEMASTER ECGPR 152 TRACEMASTER Specimen Narrative [facility]formed At [facility] Test Date: 2019-08-28 Pat Name: ISIAH BENÍTEZ Department: ERS Room: Gender: Female Plant Clerk: [id number] : 1950 Requested By: NIMO OCHOA Order Number: [id number] Reading MD: Measurements Intervals [place] Rate: 76 P: 58 [place]: 152 QRS: 65 QRSD: 102 T: 59 QT: 396 QTc: 446 Interpretive Statements SINUS RHYTHM Procedure Note Interface, External Ris In - 08/28/2019 11:15 AM SWIMMING POOL INSTALLER [facility] ED Test Date: 2019-08-28 Pat Name: ISIAH BENÍTEZ Department: ERS Room: Gender: Female Plant Clerk: [id number] : 1950 Requested By: NIMO OCHOA Order Number: [id number] Reading MD: Measurements Intervals [place] Rate: 76 P: 58 [place]: 152 QRS: 65 QRSD: 102 T: 59 QT: 396 QTc: 446 Interpretive Statements SINUS RHYTHM Performing Organization Address City/[email or web address] Ph one Number TRACEMASTER documented in this encounter Visit Diagnoses Diagnosis Acute bronchitis, unspecified organism COPD exacerbation (HCC) Obstructive chronic bronchitis with exa cerbation documented in this encounter Administered Medications Action Date Dose Rate Site Medication Order MAR Action 08/28/2019 4:05 PM SWIMMING POOL INSTALLER 50 mcg fentaNYL (SUBLIMAZE) injection 50 mcg Given 50 mcg, Intravenous, Once, Wed08/28/19 a t 1506, For 1 dose, Administer over 2 minutes; max dose for IVP is 2 mcg/kg. Note: Limit does not apply to patients who may be tolerant to opioid therapy o r on continuous IV or PO opiate therapy., 08/28/2019 3:39 PM SWIMMING POOL INSTALLER 3 mL ipratropium-albuterol (DUO-NEB) 0.5-3 Given mg/3 mL nebulizer solution 3 mL 3 mL, Inhalation, Once, Wed08/28/19 at 1506, For 1 dose 08/28/2019 2:56 PM SWIMMING POOL INSTALLER 125 mg methylPREDNISolone sod suc(PF) Given (Solu-MEDROL) injection 125 mg 125 mg, Intravenous, Once, Wed08/28/19 a t 1440, For 1 dose documented in this encounter"
--- OUTSIDE RECORDS SUMMARY | 2020-03-12 09:07 | XMS REPORT | Encounter Summary ---
Author Author [facility] Organization [facility] Address Unknown Phone Unavailable Care Team Providers Care Stock Car Driver Name Role Phone Ebony Sharp MD PCP Reason for Referral * Testing (Routine) Referred By Contact Referred To Contact Status Reason Specialty Diagnoses / [place] [address], [place] [address] [place] [address] [place] [address] Closed Urology Diagnoses Nephrolithiasis Kidney stones P rocedures Cystoscopy with Stent Pull Reason for Visit * Reason Comments Nephrolithiasis post op Encounter Details Care Team Description Date [place] [address], [place] [id number] Kidney stones (Primary Dx); Nephrolithiasis; Renal calculus 08/10/2019 Procedure visit [facility] [address], [place] [id number] Social History Date Tobacco Use Types Packs/Day [...] Comments Vital Sign 130/92 08/10/2019 8:35 AM COST AND SALES RECORD SUPERVISOR Blood Pressure 96 08/10/2019 8:35 AM COST AND SALES RECORD SUPERVISOR Pulse - - Temperature - - Respiratory Rate - - Oxygen Saturation - - Inhaled Oxygen Concentration 102.1 kg (225 lb) 08/10/2019 8:35 AM COST AND SALES RECORD SUPERVISOR Weight 152.4 cm (5') 08/10/2019 8:35 AM COST AND SALES RECORD SUPERVISOR Height 43.94 08/10/2019 8:35 AM COST AND SALES RECORD SUPERVISOR Body Mass Index documented in this encounter Patient Instructions * Patient Instructions* Darin Huber MD - 08/10/2019 8:30 AM COST AND SALES RECORD SUPERVISOR Kidney Stones: Are You at Risk? People [...] [] [] Do you live in the [facility]. or another hot climate? [] [] Have [...] in salt and meat content? (Eating a ztui-zofzdq-iesvspa di et is a risk for uric [...] how to prevent them. Date Last Reviewed: 08/23/201619998614-5071 [employer]. [address] [place] [address] 164 7. All rights reserved. This information is not intended as a substitute for pro fessional medical care. Always follow your healthcare professional's instruction s. AND SALES RECORD SUPERVISOR documented in this encounter Progress Notes * Darin Huber MD - 08/10/2019 8:30 AM COST AND SALES RECORD SUPERVISOR Urology follow up note Darin Huber Encounter [...] day. 30 tablet 0 vit A/vit C/biotin/zinc/copper ([id number]-[id number]-BHMU,VIT A,C-BIOTIN, ORAL) Take by mouth daily. No [...] She und erwent a CT scan at [facility] that demonstrated proximal a 1.5 [...] signed by: Darin Huber 08/10/2019 8:45 AM AND SALES RECORD SUPERVISOR documented in this encounter Plan of Treatment Order Schedule Name Type Priority Associated Diag noses Ordered: 08/10/2019 Cystoscopy with Stent Procedure Routine Nephroli thiasis Pull Kidney stones documented as of this encounter Procedures Comments Procedure Name Priority Date/Time Associated Diag nosis POCT UA W MICRO ONLY Routine 08/10/[address] ones 8:50 AM COST AND SALES RECORD SUPERVISOR documented in this encounter Results * POCT UA w Micro Only (08/10/2019 8:50 AM COST AND SALES RECORD SUPERVISOR) Appearance, Urine Glucose Urine 100 (A) Negative mg/dL Bilirubin Urine Negative Negative Ketones Urine Negative Negative Specific 1.030 1.001 - 1.030 [place], UA Hemoglobin Large (A) Negative Urine PH [...]
--- OUTSIDE RECORDS SUMMARY | 2020-03-12 09:07 | XMS REPORT | Encounter Summary ---
Author Author [facility] Organization [facility] Address Unknown Phone Unavailable Care Team Providers Care Central Office Supervisor Name Role Phone Ebony Sharp MD PCP Reason for Visit * Reason Comments Other Encounter Details Care Team Description Date Type Department Ebony Sharp MD [address] [facility] [place], [place] [id number] Other 08/25/2019 Refill [facility] Primar y Care - East [address] [place], [place] [phone] Social History Date Tobacco Use Types Packs/Day [...]
--- OUTSIDE RECORDS SUMMARY | 2020-03-12 09:08 | XMS REPORT | Encounter Summary ---
Author Author [facility] Organization [facility] Address Unknown Phone Unavailable Care Team Providers Care Rn Primary Care Name Role Phone Ebony Sharp MD PCP Encounter Details Care Team Description Date [place] [address] [place] [address] [phone] 07/19/2019 Orders Only [facility] [address] [facility] [address] [place] [address] Social History Date Tobacco Use Types Packs/Day [...]
--- OUTSIDE RECORDS SUMMARY | 2020-03-12 09:08 | XMS REPORT | Encounter Summary ---
Author Author [facility] Organization [facility] Address Unknown Phone Unavailable Care Team Providers Care Hot Stick Worker Name Role Phone Ebony Sharp MD PCP Encounter Details Care Team Description Date [place] [address] [place], [place] [id number] Kidney stone 07/14/2019 Imaging [facility] Radiol ogy Appointment [address] [place] [phone] Social History Date Tobacco Use Types Packs/Day [...] Routine 07/14/2019 Kidn ey stone 1:32 PM POWER TRUCK DRIVER documented in this encounter Results * XR Abdomen single view AP (07/14/2019 1:32 PM POWER TRUCK DRIVER) Specimen Impressions Performed At 1.Left sided double-J ureteral stent. There is amorph ous calcifications MCKESSON overlying the inferior left renal shado w measuring up to 1.5 cm 2. Non-obstructive bowel gas pattern. Dictation location: [facility] Narrative Performed At Patient: ISIAH BENÍTEZ Sex#: F #: [id number] Jose #: [id number] Location: BS XR 9 Procedure Requested: [id number] XR ABDOM EN SINGLE VIEW AP Reason [...] Rad Results In - 07/14/2019 3:18 PM POWER TRUCK DRIVER Patient: ISIAH BENÍTEZ Sex#: F #: [id number] Jose#: [id number] Location: XR Procedure Requested: [id number] XR ABDOMEN SINGLE VIEW AP Reason for [...] 2. Non-obstructive bowel gas pattern. Dictation location: [facility] Performing Organization Address City/State/Zipcode Ph one [employer] documented in this encounter Visit Diagnoses Diagnosis Kidney stone Calculus of kidney documented in this encounter
--- OUTSIDE RECORDS SUMMARY | 2020-03-12 09:08 | XMS REPORT | Encounter Summary ---
Author Author [facility] Organization [facility] Address Unknown Phone Unavailable Care Team Providers Care Shop Hand Name Role Phone Ebony Sharp MD PCP Encounter Details Care Team Description Date [place] [address] [place] [address] [phone] 07/24/2019 Telephone [facility] [address] [place], [place] [id number] Social History Date Tobacco Use Types Packs/Day [...] Marleen Arellano CMA - 08/10/2019 8:49 AM FLATWORK FINISHER Spoke with the pharmacist, cancelled refill for Cipro and oxycodone, patient no longer needs WORK FINISHER * Telephone Encounter - Ying Malik - 07/24/2019 10:05 AM FLATWORK FINISHER Scheduled for Cysto, L RPG, URS, Laser Litho, Stent Placement @ [facility] 07/23 09/10 09:30, s/w Anamaria, s/w Brock/VERNON, s/w patient, aware/agreeable. la WORK FINISHER documented in this encounter Plan of Treatment Not on filedocumented as of this encounter Visit Diagnoses Not on filedocumented in this encounter
--- OUTSIDE RECORDS SUMMARY | 2020-03-12 09:08 | XMS REPORT | Encounter Summary ---
Author Author [facility] Organization [facility] Address Unknown Phone Unavailable Care Team Providers Care Air Deodorizer Servicer Name Role Phone Ebony Sharp MD PCP Encounter Details Care Team Description Date [place] [address] [place] [address] [phone] 07/13/2019 Telephone [facility] [address] [place] [address] Social History Date Tobacco Use Types Packs/Day [...] Marleen Arellano CMA - 07/13/2019 2:08 PM HAT BODY SORTER No HIPPA form in chart left a message stating to return phone call regarding sandy roblero appointment BODY SORTER documented in this encounter Plan of Treatment Not on filedocumented as of this encounter Visit Diagnoses Not on filedocumented in this encounter
--- OUTSIDE RECORDS SUMMARY | 2020-03-12 09:08 | XMS REPORT | Encounter Summary ---
Author Author [facility] Organization [facility] Address Unknown Phone Unavailable Care Team Providers Care Dairy Consultant Name Role Phone Ebony Sharp MD PCP Reason for Visit * Reason Comments Other Encounter Details Care Team Description Date Type Department Ebony Sharp MD [address] [facility] [address] [place], [place] [phone] Other 07/17/2019 Refill [facility] Primar y Care - [facility] [address] [facility] [address] [place], [place] [address] Social History Date Tobacco Use Types Packs/Day [...]
--- OUTSIDE RECORDS SUMMARY | 2020-03-12 09:08 | XMS REPORT | Encounter Summary ---
Author Author [facility] Organization [facility] Address Unknown Phone Unavailable Care Team Providers Care Education Liaison Name Role Phone Ebony Sharp MD PCP Reason for Referral * Diagnostic Imaging (Routine) Referred By Contact Referred To Contact Status Reason Specialty Diagnoses / [place] [address] [place] [address] Pending Review Diagnoses Pain P rocedures FL Retrograde Urography in OR Reason for Visit * Auth/Cert Referred By Contact Referred To Contact Status Reason Specialty Diagnoses / Procedures Diagnoses R10.9 P rocedures CYSTO/URETERO W/LITHOTRIPSY &INDWELL STENT INSRT CYSTOSCOPY, LEFT RETROGRADE PYELOGRAM, LEFT URETEROSCOPY, LASER LITHOTRIPSY, LEFT URETERAL STENT PLACEMENT Encounter Details Care Team Description [place] [address] [place] [address] [phone] Pain 06/28/2019 [facility] [address] [place] [address] Social History Date Tobacco Use Types Packs/Day [...] A/vit Take by mouth 0 C/biotin/zinc/copper daily. ([id number],VIT A,C-BIOTIN, ORAL) 08/26/2017 08/28/2019 albuterol (VENTOLIN HFA) INHALE 1 PUFF 18 g 2 90 mcg/actuation HFA EVERY 4 HOURS inhaler NEEDED FOR WHEEZING 06/26/2019 12/24/2019 amitriptyline (ELAVIL) 25 Take 1 tablet 90 tablet 1 MG tablet (25 mg total) by mouth nightly. 03/13/2019 07/28/2019 BREO ELLIPTA 200-25 INHALE 1 [...] Routine 06/28/2019 Pain IN OR 10:25 AM PATTERNMAKER APPRENTICE METAL documented in this encounter Results * FL Retrograde Urography in OR (06/28/2019 10:25 AM PATTERNMAKER APPRENTICE METAL) Specimen Impressions Performed At Fluoroscopic support for the urology services. Plea se see operative LEVI report for details. READING SITE: [facility] Narrative Performed At Patient: ISIAH BENÍTEZ MCASHWINJEFFREY Sex#: F #: [id number] Jose #: [id number] Location: [facility] 1554 Procedure Requested: [id number] FL RETRO GRADE UROGRAPHY IN OR Reason for Exam: Pain Exam Ordered: 06/28/2019 06 52 Exam Date/Time: 06/28/2019 102 5 Begin exam date/time: 06/28/2019 091 0 FL RETROGRADE UROGRAPHY IN OR INDICATION: Pain TECHNIQUE: Fluoroscopic guidance was ut ilized by the surgical services with images submitted for interpretatio n. No radiologist was present for the procedure. COMPARISON: CT abdomen and pelvis Octob er 25, 2019. FLUORO TIME: 37.8 seconds. NUMBER OF SPOT IMAGES: 2. FINDINGS: Spot fluoroscopic images demo nstrate injection of contrast into the left renal collecting system w ith proximal portion of the nephroureteral stent seen. Procedure Note Interface, Rad Results In - 06/28/2019 11:15 AM PATTERNMAKER APPRENTICE METAL Patient: ISIAH BENÍTEZ Sex#: F #: [id number] Jose#: [id number] Location: [facility] Procedure Requested: [id number] FL RETROGRADE UROGRAPHY IN OR Reason for [...] see operative report for details. READING SITE: [facility] Address City/State/Zipcode Ph one Number LVEI documented in this encounter Visit Diagnoses Diagnosis Pain Generalized pain documented in this encounter
--- OUTSIDE RECORDS SUMMARY | 2020-03-12 09:08 | XMS REPORT | Encounter Summary ---
Author Author [facility] Organization [facility] Address Unknown Phone Unavailable Care Team Providers Care Hydrostatic Tester Name Role Phone Ebony Sharp MD PCP Reason for Visit * Auth/Cert Referred By Contact Referred To Contact Status Reason Specialty Diagnoses / Procedures Diagnoses N20.0 P rocedures CYSTO/URETERO W/LITHOTRIPSY &INDWELL STENT INSRT CYSTOSCOPY, LEFT RETROGRADE PYELOGRAM, LEFT URETEROSCOPY, LASER LITHOTRIPSY, LEFT URETERAL STENT PLACEMENT Encounter Details Care Team Description [place] [address] [place] [address] [phone] Kidney stones (Primary Dx) 08/02/2019 [facility] [address] [place] [address] Social History Date Tobacco Use Types Packs/Day [...] Comments Vital Sign 164/100 08/02/2019 11:10 AM BRIQUETTE MAKER Blood Pressure 76 08/02/2019 11:10 AM BRIQUETTE MAKER Pulse 36.4 C (97.6 F) 08/02/2019 11:10 AM BRIQUETTE MAKER Temperature 18 08/02/2019 11:10 AM BRIQUETTE MAKER Respiratory Rate 95% 08/02/2019 11:10 AM BRIQUETTE MAKER Oxygen Saturation - - Inhaled Oxygen Concentration 103 kg (227 lb) 08/02/2019 8:03 AM BRIQUETTE MAKER Weight 152.4 cm (5') 08/02/2019 8:03 AM BRIQUETTE MAKER Height 44.33 08/02/2019 8:03 AM BRIQUETTE MAKER Body Mass Index documented in this encounter Discharge Instructions * Pre-Procedure Instructions* Rosy Hart RN - 07/28/2019 1:39 PM BRIQUETTE MAKER Current Outpatient Medications Medication Sig Note: albuterol [...] not picked up prescription vit A/vit C/biotin/zinc/copper ([id number]-[id number]-IXJN,VIT A,C-BIOTIN, ORAL) Take by mouth daily. Note:has stopped Preoperative phone call completed with patient. Medications reviewed. Instructio ns for surgery reviewed with patient stating understanding to instructions given . Previously had OR 06/28/19. No change in health condition. Patient will plan to proceed with surgery as scheduled. Family member to be present for surgery, transportation and care after. UETTE MAKER * Attachments The following attachments cannot be sent through Care Everywhere.* Kidney Stones, Treating: Ureteroscopic Stone Removal (Turkish) * Stents, Ureteral (Turkish) documented in this encounter Medications at Time [...] A/vit Take by mouth 0 C/biotin/zinc/copper daily. ([id number]-XLVL-MGGD,VIT A,C-BIOTIN, ORAL) 08/26/2017 08/28/2019 albuterol (VENTOLIN HFA) INHALE 1 PUFF 18 g 2 90 mcg/actuation HFA EVERY 4 HOURS inhaler NEEDED FOR WHEEZING 06/26/2019 12/24/2019 amitriptyline (ELAVIL) 25 Take 1 tablet 90 tablet 1 MG tablet (25 mg total) by mouth nightly. 07/18/2019 08/25/2019 BREO ELLIPTA 200-25 INHALE 1 PUFF 60 each 0 mcg/dose BY MOUTH INHALERIndications: DAILY Chronic obstructive pulmonary disease, unspecified COPD type (HCC) 08/02/2019 08/10/2019 ciprofloxacin HCl (CIPRO) Take 1 tablet 14 tablet 0 500 MG tabletIndications: (500 mg UTI total) by mouth 2 (two) times a day. 07/14/2019 01/01/2020 citalopram (CELEXA) 20 mg Take [...] Darin Huber MD - 08/02/2019 8:50 AM BRIQUETTE MAKER [facility] UROLOGY Pre-Op NOTE Patient: Isiah Benítez Age: [...] STENT PLACEMENT; Surgeon: Darin Huber MD; Location: [facility]; Service: Urology; Laterality: Left; HAND SURGERY Left 03/09/2019 [facility] HERNIA REPAIR HYSTERECTOMY OOPHORECTOMY REMOVAL, HARDWARE, FOOT OR ANKLE Left 04/09/2017 Procedure: LEFT ANKLE REMOVAL OF HARDWARE WITH REVISION LEFT ANKLE ARTHRODESIS; Surgeon: Adelaida Olivas MD; Location: [facility]; Service: Orthopedics; Later ality: Left; REPAIR, INCISIONAL HERNIA, LAPAROSCOPIC, USING MESH N/A 05/25/2018 Procedure: LAPAROSCOPIC INCISIONAL HERNIA REPAIR WITH MESH; Surgeon: Medardo Tate MD; Location: [facility]; Service: General; Laterality: N/A; TONSILLECTOMY [...] 08/01/2019 at Unknown time vit A/vit C/biotin/zinc/copper (OULK-HNZZ-GEQX,VIT A,C-BIOTIN, ORAL) Take by mouth daily. Past [...] 06/13/2019 02:29 PM Negative Negative Final Specific [place], UA Date/Time Value Ref Range Status 07/14/2019 [...] schedule stent removal in clinic in 1-2wks UETTE MAKER documented in this encounter Miscellaneous Notes * Operative Note - Darin Huber MD - 08/02/2019 8:53 AM BRIQUETTE MAKER Brief Operative Note Isiah Benítez 08/02/2019 No case tracking events are documented in the log. Pre-op Diagnosis: N20.0 Post-op Diagnosis: Left N20.o Procedure: CYSTOSCOPY, LEFT RETROGRADE PYELOGRAM, LEFT URETEROSCOPY, LASER LITHOTRIPSY, LEF T URETERAL STENT PLACEMENT, Left Surgeon(s) and Role: * Darin Huber MD - Primary Anesthesia Type: General Staff: Rand Butting Machine Operator: Juventino Rubio RN Scrub Person: Tonja Robb No anesthesia staff entered. Findings: Left lower pole stone Estimated Blood Loss: 0 mL Specimens: Left renal stones Implants: 6x24 left ureteral stent Complications: None Description of Procedures: On August 02, 2019 after consent is obtained [facility] in supine position. She is then placed under general anesthesia. She received prep of IV Cipro for antibiotic coverage. She is then placed in d orsolithotomy energizer prepped and draped in normal sterile fashion. I began the procedure inserting the 21 Mozambican rigid cystoscope transurethral wit hout difficulty. Once into the bladder identified the left ureteral stent. Juli coy used an alligator forceps to grasp the stent and pull this out to the urethr al meatus without difficulty. This was cannulated then with a sensor wire. Whi ch was passed up the renal pelvis under fluoroscopic guidance. I followed this with a 5 Mozambican open-ended stent over the sensor wire. A [...] Huber MD Date: 08/02/2019 Time: 8:53 AM UETTE MAKER documented in this encounter Plan of Treatment Not on filedocumented as of this encounter Procedures Comments Procedure Name Priority Date/Time Associated Diag nosis FL RETROGRADE UROGRAPHY Routine 08/02/2019 IN OR 10:52 AM BRIQUETTE MAKER STONE ANALYSIS Timed 08/02/2019 10:21 AM BRIQUETTE MAKER CYSTOSCOPY, RETROGRADE 08/02/2019 N20.0 PYELOGRAM, URETEROSCOPY, 9:33 AM BRIQUETTE MAKER LASER LITHOTRIPSY, WITH URETERAL STENT PLACEMENT Special Needs HOLMIUM LASER ORDERED PER RADHA bsBIOMED NOTIFIEDC- ARMO2 PER NC PRN, NIGHT PRIOR UROLOGY OR 06/28/19OSA WITH CPAP USE GLUCOSE POC Routine 08/02/2019 8:56 AM BRIQUETTE MAKER GLUCOSE POC Routine 08/02/2019 7:46 AM BRIQUETTE MAKER GLUCOSE POC Routine 08/02/2019 7:42 AM BRIQUETTE MAKER documented in this encounter Results * FL Retrograde Urography in OR (08/02/2019 10:52 AM BRIQUETTE MAKER) Specimen Impressions Performed At Image demonstrates radiopaque catheter overlying left abdomen with MCKESSON minimal contrast overlying dilated left collecting system suggesting mild left renal caliectasis. Please see procedure note for additiona l details. READING SITE: [facility] NOTE: Parts of this report were generated wit [employer]) voice recognition software. [employer] Imagin2010;24(4):724-8. Narrative Performed At Patient: ISIAH BENÍTEZ Sex#: F #: [id number] Jose #: [id number] Location: [facility] MAIN OR NONE Procedure Requested: [id number] FL RETRO GRADE UROGRAPHY IN OR Reason [...] Rad Results In - 08/02/2019 11:07 AM BRIQUETTE MAKER Patient: ISIAH BENÍTEZ Sex#: F #: 1950 Jose#: [id number] Location: [facility] OR NONE Procedure Requested: [id number] FL RETROGRADE UROGRAPHY IN OR Reason for [...] procedure note for additional details. READING SITE: [facility] NOTE: Parts of this report were generated with voice recognition software. [employer] Imagin2010;24(4):724-8. Performing Organization Address City/State/Zipcode Ph one Number LEVI * Stone Analysis Urinary (08/02/2019 10:21 AM BRIQUETTE MAKER) Stone Color Brown [facility] Stone Size CommentComment: [...] photograph will follow via computer, mail, or administrator health care facility delivery. Stone Comment Comment [facility] Comment: Physician questions regarding Calculi Analysis contact [facility] at: [phone]. Disclaimer : Comment [facility] Comment: This test was developed and its performance characteristics determined by [facility]. It has not been cleared or approved by the Food and Drug Administration. Performed at: [address] [id number] Hide Inspector: Seamus Infante MD, Phone: [phone] Specimen Stone - Left Ureter Performing Organization Address City/[facility] Ph one Number SLRL [address] [place], [place] [address] [facility] Interface [id number] [place] [address] [place] [address] * GLUCOSE POC (08/02/2019 8:56 AM BRIQUETTE MAKER) Only the most recent of 3 results within the time period is included. Glucose POC 237 (H) 70 - 100 mg/dL [place] [place]AS[facility]ug[facility] [place] [facility] Specimen Performing Organization Address [facility] Ph one Number [facility] [address] [facility] [address] [facility] [place] [place] [address] [facility] [place] [address], [facility] documented in this encounter Visit Diagnoses Diagnosis Kidney stones Calculus of kidney documented in this encounter Administered Medications Action Date Dose Rate Site Medication Order MAR Action albuterol (ACCUNEB) 2.5 mg/3 mL (0.083 %) nebulizer solution 2.5 mg 2.5 mg, Nebulization, Every 4 hours PRN , wheezing, Starting Wed08/02/19 at 1032 , PACU (only) 08/02/2019 8:27 AM BRIQUETTE MAKER 20 mg famotidine (PEPCID) injection 20 mg Given 20 mg, Intravenous, Once, Wed08/02/19 at 0830, For 1 dose, Pre-op 08/02/2019 8:27 AM BRIQUETTE MAKER 25 mcg fentaNYL (SUBLIMAZE) injection 25 mcg Given 25 mcg, Intravenous, Once, Wed08/02/19 at 0845, For 1 dose, Pre-op, Administer over 2 minutes; max dose for IVP is 2 mcg/kg. Note: Limit does not apply to patients who may be tolerant to opioid therapy or on continuous IV or PO opiat e therapy., 08/02/2019 10:39 AM BRIQUETTE MAKER 50 mcg fentaNYL (SUBLIMAZE) injection 25-50 mcg [...] anesthesia STAT if administered., 08/02/2019 8:33 AM BRIQUETTE MAKER 5 Units insulin regular (HumuLIN R) injection 5 Given Units 5 Units, Intravenous, Once, Indications : hyperglycemia, Wed08/02/19 at 0845, Fo r 1 dose, Pre-op lactated ringers infusion 50 mL/hr, Intravenous, Continuous, Starting Wed08/02/19 at 1100, For 48 hours, PACU (only) 08/02/2019 8:27 AM BRIQUETTE MAKER 50 mL/hr 50 mL/hr lactated ringers infusion [...] 4 hours PRN, nausea/vomiting (1st line), Starting 08/02/19 at 1032, PACU (only), Administer if [...]
--- OUTSIDE RECORDS SUMMARY | 2020-03-12 09:08 | XMS REPORT | Encounter Summary ---
Author Author [facility] Organization [facility] Address Unknown Phone Unavailable Care Team Providers Care Plant Taxonomy Teacher Name Role Phone Ebony Sharp MD PCP Reason for Visit * Auth/Cert Referred By Contact Referred To Contact Status Reason Specialty Diagnoses / Procedures Diagnoses N20.0 P rocedures CYSTO/URETERO W/LITHOTRIPSY &INDWELL STENT INSRT CYSTOSCOPY, LEFT RETROGRADE PYELOGRAM, LEFT URETEROSCOPY, LASER LITHOTRIPSY, LEFT URETERAL STENT PLACEMENT Encounter Details Care Team Description [place] [address] [place] [address] [phone] CYSTOSCOPY, LEFT RETROGRADE PYELOGRAM, L EFT URETEROSCOPY, LASER LITHOTRIPSY, LEFT URETERAL STENT EXCHANGE 08/02/[address] [facility] [address], [place] [id number] Social History Date Tobacco Use Types Packs/Day [...] Comments Vital Sign 164/100 08/02/2019 11:10 AM NEUROLOGY HOSPITALIST Blood Pressure 76 08/02/2019 11:10 AM NEUROLOGY HOSPITALIST Pulse 36.4 C (97.6 F) 08/02/2019 11:10 AM NEUROLOGY HOSPITALIST Temperature 18 08/02/2019 11:10 AM NEUROLOGY HOSPITALIST Respiratory Rate 95% 08/02/2019 11:10 AM NEUROLOGY HOSPITALIST Oxygen Saturation - - Inhaled Oxygen Concentration 103 kg (227 lb) 08/02/2019 8:03 AM NEUROLOGY HOSPITALIST Weight 152.4 cm (5') 08/02/2019 8:03 AM NEUROLOGY HOSPITALIST Height 44.33 08/02/2019 8:03 AM NEUROLOGY HOSPITALIST Body Mass Index documented in this encounter Discharge Instructions * Pre-Procedure Instructions* Rosy Hart RN - 07/28/2019 1:39 PM NEUROLOGY HOSPITALIST Current Outpatient Medications Medication Sig Note: albuterol [...] before surge ry as scheduled insulin syringe (Respirics ULTRA-FINE) 0.3 mL 31 gauge x 5/16 [...] not picked up prescription vit A/vit C/biotin/zinc/copper (OYMG-SFGM-VOFX,VIT A,C-BIOTIN, ORAL) Take by mouth daily. Note:has stopped Preoperative phone call completed with patient. Medications reviewed. Instructio ns for surgery reviewed with patient stating understanding to instructions given . Previously had OR 06/28/19. No change in health condition. Patient will plan to proceed with surgery as scheduled. Family member to be present for surgery, transportation and care after. OLOGY HOSPITALIST * Attachments The following attachments cannot be sent through Care Everywhere.* Kidney Stones, Treating: Ureteroscopic Stone Removal (Paraguayan) * Stents, Ureteral (Paraguayan) documented in this encounter Medications at Time [...] A/vit Take by mouth 0 C/biotin/zinc/copper daily. ([id number]-QAWT-AJBS,VIT A,C-BIOTIN, ORAL) 08/26/2017 08/28/2019 albuterol (VENTOLIN HFA) [...] Darin Huber MD - 08/02/2019 8:[address] [facility] UROLOGY Pre-Op NOTE Patient: Isiah Benítez [...] COPD (chronic obstructive pulmonary disease) ([facility]) Depression Draining postoperative wound 08/08/2016 [...] Refusal of blood transfusions as patient is Jewish Sleep apnea CPAP use Type 2 diabetes [...] STENT PLACEMENT; Surgeon: Darin Huber MD; Location: [facility] [place]; Service: Urology; Laterality: Left; HAND SURGERY Left 03/09/2019 CTR HERNIA REPAIR HYSTERECTOMY OOPHORECTOMY REMOVAL, HARDWARE, FOOT OR ANKLE Left 04/09/2017 Procedure: LEFT ANKLE REMOVAL OF HARDWARE WITH REVISION LEFT ANKLE ARTHRODESIS; Surgeon: Adelaida Olivas MD; Location: [facility] Main [place]; Service: Orthopedics; Later ality: Left; REPAIR, INCISIONAL HERNIA, LAPAROSCOPIC, USING MESH N/A 05/25/2018 Procedure: LAPAROSCOPIC INCISIONAL HERNIA REPAIR WITH MESH; Surgeon: Medardo Tate MD; Location: [facility] Main OR; Service: General; Laterality: N/A; TONSILLECTOMY [...] 08/01/2019 at Unknown time vit A/vit C/biotin/zinc/copper (YNQS-ORWY-FUWY,VIT A,C-BIOTIN, ORAL) Take by mouth daily. Past [...] file Gets together: Not on file Attends zoroastrianism service: Not on file Active member of [...] 06/13/2019 02:29 PM Negative Negative Final Specific [place], UA Date/Time Value Ref Range Status 07/14/2019 [...] schedule stent removal in clinic in 1-2wks OLOGY HOSPITALIST documented in this encounter Miscellaneous Notes * Operative Note - Darin Huber MD - 08/02/2019 8:53 AM NEUROLOGY HOSPITALIST Brief Operative Note Isiah Benítez 08/02/2019 No case tracking events are documented in the log. Pre-op Diagnosis: N20.0 Post-op Diagnosis: Left N20.o Procedure: CYSTOSCOPY, LEFT RETROGRADE PYELOGRAM, LEFT URETEROSCOPY, LASER LITHOTRIPSY, LEF T URETERAL STENT PLACEMENT, Left Surgeon(s) and Role: * Darin Huber MD - Primary Anesthesia Type: General Staff: Police Patrol Lieutenant: Juventino Rubio RN Scrub Person: Tonja Robb [...] I began the procedure inserting the 21 Serbian rigid cystoscope transurethral wit hout difficulty. Once into the bladder identified the left ureteral stent. I teresa coy used an alligator forceps to grasp the stent and pull this out to the urethr al meatus without difficulty. This was cannulated then with a sensor wire. Whi ch was passed up the renal pelvis under fluoroscopic guidance. I followed this with a 5 Serbian open-ended stent over the sensor wire. A [...] Huber MD Date: 08/02/2019 Time: 8:53 AM OLOGY HOSPITALIST documented in this encounter Plan of Treatment Not on filedocumented as of this encounter Procedures Comments Procedure Name Priority Date/Time Associated Diag nosis FL RETROGRADE UROGRAPHY Routine 08/02/2019 IN OR 10:52 AM NEUROLOGY HOSPITALIST STONE ANALYSIS Timed 08/02/2019 10:21 AM NEUROLOGY HOSPITALIST CYSTOSCOPY, RETROGRADE 08/02/2019 N20.0 PYELOGRAM, URETEROSCOPY, 9:33 AM NEUROLOGY HOSPITALIST LASER LITHOTRIPSY, WITH URETERAL STENT PLACEMENT Special Needs HOLMIUM LASER ORDERED PER RADHA bsBIOMED NOTIFIEDC- ARMO2 PER NC PRN, NIGHT PRIOR UROLOGY OR 06/28/19OSA WITH CPAP USE GLUCOSE POC Routine 08/02/2019 8:56 AM NEUROLOGY HOSPITALIST GLUCOSE POC Routine 08/02/2019 7:46 AM NEUROLOGY HOSPITALIST GLUCOSE POC Routine 08/02/2019 7:42 AM NEUROLOGY HOSPITALIST documented in this encounter Results * FL Retrograde Urography in OR (08/02/2019 10:52 AM NEUROLOGY HOSPITALIST) Specimen Impressions Performed At Image demonstrates radiopaque catheter overlying left abdomen with MCKESSON minimal contrast overlying dilated left collecting system suggesting mild left renal caliectasis. Please see procedure note for additiona l details. READING SITE: [facility] NOTE: Parts of this report were generated wit WeGreek voice recognition software. Raise Your Flag Imagin2010;24(4):724-8. Narrative Performed At Patient: ISIAH BENÍTEZ Sex#: F #: [id number] Jose #: [id number] Location: [facility] MAIN OR NONE Procedure Requested: [id number] FL RETRO GRADE UROGRAPHY IN OR Reason [...] Rad Results In - 08/02/2019 11:07 AM NEUROLOGY HOSPITALIST Patient: ISIAH BENÍTEZ Sex#: F #: [id number] Jose#: [id number] Location: [facility] MAIN OR NONE Procedure Requested: [id number] FL RETROGRADE UROGRAPHY IN OR Reason for [...] note for additional details. READING SITE: [facility] NOTE: Parts of this report were generated with voice recognition software. J LUMO [employer] Imagin2010;24(4):724-8. Performing Organization Address City/State/Zipcode Ph one Number LEVI * Stone Analysis Urinary (08/02/2019 10:21 AM NEUROLOGY HOSPITALIST) Stone Color Brown [facility] Stone Size CommentComment: [...] photograph will follow via computer, mail, or tub chucker delivery. Stone Comment Comment [facility] Comment: Physician questions regarding Calculi Analysis [facility] at: [phone]. Disclaimer : Comment [facility] Comment: This test was developed and its performance characteristics determined by [facility]. It has not been cleared or approved by the Food and Drug Administration. Performed at: - [address] [id number] Marketing Support Assistant: Seamus Infante MD, Phone: [phone] Specimen Stone - Left Ureter Performing Organization Address [facility] one Number [facility] [address] [place], [place] [address] [facility] Interface [id number] [place] [address] [place] [address] * GLUCOSE POC (08/02/2019 8:56 AM NEUROLOGY HOSPITALIST) Only the most recent of 3 results within the time period is included. Glucose POC 237 (H) 70 - 100 mg/dL [facility] Specimen Performing Organization Address [facility] Ph one Number [facility] [address] [facility], [place] [phone] [facility] [address] [facility] CenterMagor Communicationseugenia [place] [place] [address], [facility] documented in this encounter Visit Diagnoses Not on filedocumented in this encounter Administered Medications Action Date Dose Rate Site Medication Order MAR Action albuterol (ACCUNEB) 2.5 mg/3 mL (0.083 %) nebulizer solution 2.5 mg 2.5 mg, Nebulization, Every 4 hours PRN , wheezing, Starting Wed08/02/19 at 1032 , PACU (only) 08/02/2019 8:27 AM NEUROLOGY HOSPITALIST 20 mg famotidine (PEPCID) injection 20 mg Given 20 mg, Intravenous, Once, Wed08/02/19 at 0830, For 1 dose, Pre-op 08/02/2019 8:27 AM NEUROLOGY HOSPITALIST 25 mcg fentaNYL (SUBLIMAZE) injection 25 mcg Given 25 mcg, Intravenous, Once, Wed08/02/19 at 0845, For 1 dose, Pre-op, Administer over 2 minutes; max dose for IVP is 2 mcg/kg. Note: Limit does not apply to patients who may be tolerant to opioid therapy or on continuous IV or PO opiat e therapy., 08/02/2019 10:39 AM NEUROLOGY HOSPITALIST 50 mcg fentaNYL (SUBLIMAZE) injection 25-50 mcg [...] anesthesia STAT if administered., 08/02/2019 8:33 AM NEUROLOGY HOSPITALIST 5 Units insulin regular (HumuLIN R) injection 5 Given Units 5 Units, Intravenous, Once, Indications : hyperglycemia, Wed08/02/19 at 0845, Fo r 1 dose, Pre-op 08/02/2019 10:27 AM NEUROLOGY HOSPITALIST 10 mL iohexol (OMNIPAQUE) 150 mg/mL (iohexol Given 300 mg/ml mixed 1: with normal saline) As needed, Starting Wed08/02/19 at 1027, Intra-op lactated ringers infusion 50 mL/hr, Intravenous, Continuous, Starting Wed08/02/19 at 1100, For 48 hours, PACU (only) 08/02/2019 8:27 AM NEUROLOGY HOSPITALIST 50 mL/hr 50 mL/hr lactated ringers infusion New Bag 50 mL/hr, Intravenous, Continuous, Starting Wed08/02/19 at 0830, For 48 hours, Pre-op 08/02/2019 10:27 AM NEUROLOGY HOSPITALIST 1 application Operativ e Site lidocaine (XYLOCAINE) [...] PRN, nausea/vomiting (3rd line), Starting We d 08/02/19 at 1032, PACU (only) oxyCODONE (ROXICODONE) [...] and refuses IM injection., 08/02/2019 9:55 AM NEUROLOGY HOSPITALIST 3,000 mL Operativ e Site sodium chloride irrigation 3000 mL Given (bladder) (NS) 0.9 % As needed, Starting Wed08/02/19 at 0954, Intra-op 3,000 mL Operative Site Given 08/02/2019 9:54 AM NEUROLOGY HOSPITALIST 08/02/2019 9:54 AM NEUROLOGY HOSPITALIST 1,000 mL Operativ e Site sterile water irrigation irrigation Given solution As needed, Starting Wed08/02/19 at 0954, Intra-op documented in this encounter
--- OUTSIDE RECORDS SUMMARY | 2020-03-12 09:08 | XMS REPORT | Encounter Summary ---
Author Author [facility] Organization [facility] Address Unknown Phone Unavailable Care Team Providers Care Pressure Dispatcher Name Role Phone Ebony Sharp MD PCP Encounter Details Care Team Description Date [place] [address] [place] [address] [phone] [facility] [address] [place] [address] Social History Date Tobacco Use Types Packs/Day [...] A/vit Take by mouth 0 C/biotin/zinc/copper daily. (PERY-ITIS-YVQH,VIT A,C-BIOTIN, ORAL) 08/26/2017 08/28/2019 albuterol (VENTOLIN HFA) [...] 07/28/2019 cephalexin (KEFLEX) 500 0 MG capsule 07/14/2019 01/01/2020 citalopram (CELEXA) 20 mg Take [...] URINE Routine 07/14/2019 Nephro lithiasis 1:59 PM BOMB LOADER documented in this encounter Results * Culture, Surgical Urine (SLRL) (07/14/2019 1:59 PM BOMB LOADER) Isolate 1 4000 Cfu/ml (A) [facility] Isolate 1 [place] albicans (A) [facility] Isolate 1 Susceptibility To Follow (A) [facility] Isolate 1 In the absence of symptoms, [facility] [place] is generally Hospital Lab considered normal ciera. No therapy indicated unless high risk (, or neutropenic) or undergoing urologic procedure. If Ballard catheter present, remove or replace when able. (A) Isolate 2 1000 Cfu/ml (A) [facility] Isolate 2 Staphylococcus epidermidis (A) [facility] Isolate 3 >100,000 Cfu/ml (A) [facility] Isolate 3 Lactobacillus jensenii (A) [facility] Isolate 3 No susceptibility testing done [facility] on this isolate (A) [facility] Isolate 4 >100,000 Cfu/ml (A) [facility] Isolate 4 Actinomyces neuii (A) [facility] Isolate 4 No susceptibility testing done [facility] isolate (A) Hospital Lab Specimen Urine Antibiotic Method Susceptibility Organism FLUCONAZOLE <=1: Sensitive [place] albicans VORICONAZOLE <=0.12: Sensitive [place] albicans VANCOMYCIN 1: Sensitive Staphylococcus epidermidis NITROFURANTOIN <=16: Sensitive Staphylococcus epidermidis OXACILLIN >1: Resistant Staphylococcus epidermidis TETRACYCLINE 1: Sensitive Staphylococcus epidermidis Performing Organization Address City/State[facility] Ph one Number [address] [address] LABORATORIES [facility] [address] [place] [address] documented in this encounter Visit Diagnoses Diagnosis Nephrolithiasis Calculus of kidney documented in this encounter
--- OUTSIDE RECORDS SUMMARY | 2020-03-12 09:08 | XMS REPORT | Encounter Summary ---
Author Author [facility] Organization [facility] Address Unknown Phone Unavailable Care Team Providers Care Litigator Name Role Phone Ebony Sharp MD PCP Reason for Visit * Reason Comments acute Encounter Details Care Team Description Date Type Department Fiorella Jackson RN acute 07/06/2019 Telephone [facility] [address] [place], [place] [id number] Social History Date Tobacco Use Types Packs/Day [...] Fiorella Jackson RN - 07/10/2019 1:44 PM CARDIOVASCULAR TECHNOLOGIST Patient called and lm about flank pain and pyridium. Called patient back and lm no more pyridium ! She can take otc azo if needed. Ad vised her to call the office for update of sx. IOVASCULAR TECHNOLOGIST * Telephone Encounter - Fiorella Jackson RN - 07/06/2019 12:55 PM CARDIOVASCULAR TECHNOLOGIST lmtcb IOVASCULAR TECHNOLOGIST * Telephone Encounter - Fiorella Jackson RN - 07/06/2019 10:11 AM CARDIOVASCULAR TECHNOLOGIST Notified patient and pharmacy. IOVASCULAR TECHNOLOGIST * Telephone Encounter - Fiorella Jackson RN - 07/06/2019 9:57 AM CARDIOVASCULAR TECHNOLOGIST Patient calling, s/p 06/28 CYSTOSCOPY, LEFT RETROGRADE [...] needed. Please advise if needed. Thanks ! IOVASCULAR TECHNOLOGIST documented in this encounter Plan of Treatment Not on filedocumented as of this encounter Visit Diagnoses Not on filedocumented in this encounter
--- OUTSIDE RECORDS SUMMARY | 2020-03-12 09:08 | XMS REPORT | Encounter Summary ---
Author Author [facility] Organization [facility] Address Unknown Phone Unavailable Care Team Providers Care Taker Off Braker Machine Name Role Phone Ebony Sharp MD PCP Reason for Referral * Surgical (Routine) Referred By Contact Referred To Contact Status Reason Specialty Diagnoses / [place] [address] [address] [place] [address] [place] [address] Closed Urology Diagnoses Nephrolithiasis P rocedures External Uro Surgery Reason for Visit * Reason Comments Nephrolithiasis F/U Encounter Details Care Team Description [place] [address] [place] [address] [phone] Nephrolithiasis (Primary Dx); Kidney stones; Renal calculus 07/14/2019 Procedure visit [facility] [address] [place], [place] [id number] Social History Date Tobacco Use Types Packs/Day [...] Comments Vital Sign 162/78 07/14/2019 1:44 PM SEWER AND INSPECTOR Blood Pressure 73 07/14/2019 1:44 PM SEWER AND INSPECTOR Pulse - - Temperature - - Respiratory Rate - - Oxygen Saturation - - Inhaled Oxygen Concentration - - Weight - - Height - - Body Mass Index documented in this encounter Progress Notes * Darin Huber MD - 07/14/2019 1:50 PM SEWER AND INSPECTOR Urology follow up note Darin Huber Encounter [...] NIGHT. E11.9 10 mL 5 insulin syringe (Heysan ULTRA-FINE) 0.3 mL 31 gauge x 5/16 Inject under the skin daily. use as directed 100 each 0 insulin syringe 0.3 mL 31 gauge x 5/16 USE DIRECTED 100 each 1 ipratropium-albuterol (DUO-NEB) 0.5-3 mg/3 mL nebulizer Inhale 3 mL 4 (four) times a day. (Patient taking differently: Inhale 3 mL 4 (four) times a day as n eeded. ) 360 mL 11 methen-m.blue-s.vxjt-lxtgt-vrd 118-10-40.8-36 mg cap Take 1 capsule by [...] needed. 30 tablet 1 vit A/vit C/biotin/zinc/copper (KGOM-QKUJ-LXWI,VIT A,C-BIOTIN, ORAL) Take by mouth daily. No [...] She und erwent a CT scan at [facility] that demonstrated proximal a 1.5 [...] signed by: Darin Huber 07/14/2019 2:00 PM R AND INSPECTOR documented in this encounter Plan of Treatment Not on filedocumented as of this encounter Procedures Comments Procedure Name Priority Date/Time Associated Diag nosis POCT UA W MICRO ONLY Routine 07/14/2019 Nephrolit hiasis 2:00 PM SEWER AND INSPECTOR documented in this encounter Results * POCT UA w Micro Only (07/14/2019 2:00 PM SEWER AND INSPECTOR) Appearance, Urine Glucose Urine 500 (A) Negative mg/dL Bilirubin Urine Small (A) Negative Ketones Urine Negative Negative Specific 1.030 1.001 - 1.030 [place], UA Hemoglobin Large (A) Negative Urine PH Urine 5.0 5.0 - 8.0 Protein Urine 300 (A) Negative Qual Urobilinogen 0.2 Negative EU/dL Urine Nitrite Urine Negative Negative Leukocyte Trace (A) Negative Esterase Microscopic Packed RBC Examination Specimen Urine * Culture, Surgical Urine (SLRL) (07/14/2019 1:59 PM SEWER AND INSPECTOR) Isolate 1 4000 Cfu/ml (A) [facility] Isolate 1 [place] albicans (A) [facility] Isolate 1 Susceptibility To Follow (A) [facility] Isolate 1 In the absence of symptoms, [facility] [place] is generally Hospital Lab considered normal ciera. No therapy indicated unless high risk (, or neutropenic) or undergoing urologic procedure. If Ballard catheter present, remove or replace when able. (A) Isolate 2 1000 Cfu/ml (A) [facility] Isolate 2 Staphylococcus epidermidis (A) [facility] Isolate 3 >100,000 Cfu/ml (A) [facility] Isolate 3 Lactobacillus jensenii (A) [facility] Isolate 3 No susceptibility testing done [facility] on this isolate (A) Hospital Lab Isolate 4 >100,000 Cfu/ml (A) [facility] Isolate 4 Actinomyces neuii (A) [facility] Isolate 4 No susceptibility testing done [facility] on this isolate (A) Hospital Lab Specimen Urine Antibiotic Method Susceptibility Organism FLUCONAZOLE <=1: Sensitive [place] albicans VORICONAZOLE <=0.12: Sensitive [place] albicans VANCOMYCIN 1: Sensitive Staphylococcus epidermidis NITROFURANTOIN <=16: Sensitive Staphylococcus epidermidis OXACILLIN >1: Resistant Staphylococcus epidermidis TETRACYCLINE 1: Sensitive Staphylococcus epidermidis Performing Organization Address [facility]/State[facility] Ph one Number [address] [address] LABORATORIES [facility] [address] [place] [address] documented in this encounter Visit Diagnoses Diagnosis Nephrolithiasis Calculus of kidney Kidney stones Calculus of kidney Renal calculus Calculus of kidney documented in this encounter
--- OUTSIDE RECORDS SUMMARY | 2020-03-12 09:08 | XMS REPORT | Encounter Summary ---
Author Author [facility] Organization [facility] Address Unknown Phone Unavailable Care Team Providers Care Winding Operator Name Role Phone Ebony Sharp MD PCP Reason for Visit * Reason Comments Other Encounter Details Care Team Description Date Type Department Ebony Sharp MD [address] [facility] [address] [place], [place] [phone] Other 07/14/2019 Refill [facility] - [facility] [address] [facility] [place], [place] [id number] Social History Date Tobacco Use Types Packs/Day [...]
--- OUTSIDE RECORDS SUMMARY | 2020-03-12 09:08 | XMS REPORT | Encounter Summary ---
Author Author [facility] Organization [facility] Address Unknown Phone Unavailable Care Team Providers Care Reverser Name Role Phone Ebony Sharp MD PCP Reason for Visit * Reason Comments Medication questions Encounter Details Care Team Description Date Type Department Fiorella Jackson RN Medication questions 07/17/2019 Telephone [facility] [address] [place] [address] Social History Date Tobacco Use Types Packs/Day [...] Fiorella Jackson RN - 07/18/2019 9:42 AM TIE FASTENER Order placed and patient notified. FASTENER * Telephone Encounter - Fiorella Jackson RN - 07/17/2019 3:27 PM TIE FASTENER Insurance not covering trospium. They will cover oxybutynin er please advise, astrid lowry ! FASTENER documented in this encounter Plan of Treatment Not on filedocumented as of this encounter Visit Diagnoses Not on filedocumented in this encounter
--- OUTSIDE RECORDS SUMMARY | 2020-03-12 09:08 | XMS REPORT | Encounter Summary ---
Author Author [facility] Organization [facility] Address Unknown Phone Unavailable Care Team Providers Care Shoemaker Apprentice Name Role Phone Ebony Sharp MD PCP Reason for Visit * Reason Comments Medication Refill Encounter Details Care Team Description Date Type Department Fiorella Jackson RN Medication Refill 07/19/2019 Refill [facility] [address] [place] [address] Social History Date Tobacco Use Types Packs/Day [...] Darin Huber MD - 07/24/2019 3:20 PM MOLDER INFLATED BALL Patient has had multiple Rxs for pain medications ER INFLATED BALL * Telephone Encounter - Fiorella Jackson RN - 07/24/2019 1:59 PM MOLDER INFLATED BALL This patient is calling back for refill of her pain medication. Please adviseteresa ! ER INFLATED BALL * Telephone Encounter - Marleen Arellano CMA - 07/19/2019 1:47 PM MOLDER INFLATED BALL Patient notified to tack picker Macrobid ER INFLATED BALL * Telephone Encounter - Marleen Arellano CMA - 07/19/2019 1:47 PM MOLDER INFLATED BALL ----- Message from Darin Huber MD sent at 07/19/2019 1:26 PM MOLDER INFLATED BALL ----- Patient has positive urine culture. I Rx'd macrobid. Please notify patient. ER INFLATED BALL * Telephone Encounter - Fiorella Jackson RN - 07/19/2019 9:40 AM MOLDER INFLATED BALL Patient calling requesting refill of pain medication, please sign if indicated. Thanks ! ER INFLATED BALL documented in this encounter Plan of Treatment Not on filedocumented as of this encounter Visit Diagnoses Not on filedocumented in this encounter
--- OUTSIDE RECORDS SUMMARY | 2020-03-12 09:08 | XMS REPORT | Encounter Summary ---
Author Author [facility] Organization [facility] Address Unknown Phone Unavailable Care Team Providers Care Control Director Name Role Phone Ebony Sharp MD PCP Reason for Visit * Auth/Cert Referred By Contact Referred To Contact Status Reason Specialty Diagnoses / Procedures Diagnoses N20.0 P rocedures CYSTO/URETERO W/LITHOTRIPSY &INDWELL STENT INSRT CYSTOSCOPY, LEFT RETROGRADE PYELOGRAM, LEFT URETEROSCOPY, LASER LITHOTRIPSY, LEFT URETERAL STENT PLACEMENT Encounter Details Care Team Description Date Type Department Medardo Pierce MD [address] [place] [address] [phone] [place] [address] [place] [address] [phone] 08/02/2019 [address]esthesia [facility] [address] [place] [address] Anesthesia Record Responsible Anesthesiologist Anesthesia Start Time [...] by serena Airway placement: N/A; Placed By: Professor Of Legal Studies; Site: Oral; Device: LMA; Size: 4; Attempts: [...] Medardo Pierce MD - 08/02/2019 11:40 AM SHAMPOO PERSON Anesthesia Post Evaluation Procedure(s):CYSTOSCOPY, LEFT RETROGRADE PYELOGRAM, [...] SpO2 95 % filed at 08/02/2019 1110 POO PERSON * Anesthesia Preprocedure Evaluation - Medardo Pierce MD - 08/02/2019 8:13 AM SHAMPOO PERSON Relevant Problems No relevant active problems Anesthesia [...] and supraglottic airway device Plan discussed with NATURAL RESOURCES FACULTY MEMBER. Anesthetic plan and risks discussed with patient. Use of blood products discussed with patient whom did not consent to blood produ cts. Special considerations: Gnosticist. Post-operative analgesia: routine analgesia and antiemetics Recovery plan: PACU Risk factors for PONV: female and non smoker PONV Risk: moderate Notes LMA ok as NPO per guidelines and no active reflux or nausea. Risks/benefits/alternatives discussed with patient and all questions sought and answered. Patient wishes to proceed. SASHA precautions and strong pre-oxygenation please. Poor dentition POO PERSON documented in this encounter Plan of Treatment Not on filedocumented as of this encounter Visit Diagnoses Not on filedocumented in this encounter Administered Medications Action Date Dose Rate Site Medication Order MAR Action 08/02/2019 9:35 AM SHAMPOO PERSON 2 g ceFAZolin (ANCEF) injection Given As needed, Starting Wed08/02/19 at 0935, Anesthesia Intra-op 08/02/2019 9:37 AM SHAMPOO PERSON 100 mg lidocaine (pf) (XYLOCAINE-MPF) 20 mg/mL Given (2 %) injection Intravenous, As needed, Starting Wed08/02/19 at 0937, Anesthesia Intra-op 08/02/2019 10:18 AM SHAMPOO PERSON 4 mg ondansetron (ZOFRAN) injection Given Intravenous, As needed, Starting Wed08/02/19 at 1018, Anesthesia Intra-op 08/02/2019 10:07 AM SHAMPOO PERSON 100 mcg phenylephrine HCl in 0.9% NaCl Given (NEOSYNEPHRINE) 1 mg/10 mL (100 mcg/mL) injection Intravenous, As needed, Starting Wed08/02/19 at 1007, Anesthesia Intra-op 08/02/2019 9:38 AM SHAMPOO PERSON 200 mg propofol (DIPRIVAN) injection Given Intravenous, As needed, Starting Wed08/02/19 at 0938, Anesthesia Intra-op documented in this encounter
--- OUTSIDE RECORDS SUMMARY | 2020-03-12 09:08 | XMS REPORT | Encounter Summary ---
Author Author [facility] Organization [facility] Address Unknown Phone Unavailable Care Team Providers Care Trauma Program Manager Name Role Phone Ebony Sharp MD PCP Encounter Details Care Team Description Date [place] [address] [place] [address] [phone] Nephrolithiasis (Primary Dx) 07/13/2019 Orders Only [facility] [address] [place] [address] Social History Date Tobacco Use Types Packs/Day [...]
--- OUTSIDE RECORDS SUMMARY | 2020-03-12 09:09 | XMS REPORT | Encounter Summary ---
Author Author [facility] Organization [facility] Address Unknown Phone Unavailable Care Team Providers Care Specialist Physicians Name Role Phone Ebony Sharp MD PCP Reason for Referral * Surgical (Routine) Referred By Contact Referred To Contact Status Reason Specialty Diagnoses / [place] [address] [place] [address] [place] [address] [place] [address] Closed Urology Diagnoses Left flank pain P rocedures External Uro Surgery * Diagnostic Imaging (Routine) Referred By Contact Referred To Contact Status Reason Specialty Diagnoses / [place] [address] [address] Closed Diagnoses Left flank pain P rocedures Electrocardiogram (ECG) Reason for Visit * Reason Comments Nephrolithiasis new patient * Consultation (Routine) Referred By Contact Referred To Contact Status Reason Specialty Diagnoses / Procedures Ebony Sharp MD [address] [facility] [address] [place] [address] [address] [facility] [address] [place] [address] Closed Specialty Services Urology Diagnoses Required Left flank pain Encounter Details Care Team Description Date [place] [address] [place], [place] [address] [phone] Urethral diverticulum; Left flank pain; Renal calculus 06/21/2019 Office Visit [facility] [address] [place] [address] Social History Date Tobacco Use Types Packs/Day [...] in salt and meat content? (Eating a ibqt-qdromw-iblkdhz di et is a risk for uric [...] how to prevent them. Date Last Reviewed: 08/23/201619990431-[address] [employer] [place] [address] 7. All rights reserved. This information is [...] ANKLE ARTHRODESIS; Surgeon: Adelaida Olivas MD; Location: [facility]; Service: Orthopedics; Later ality: Left; REPAIR, INCISIONAL HERNIA, LAPAROSCOPIC, USING MESH N/A 05/25/2018 Procedure: LAPAROSCOPIC INCISIONAL HERNIA REPAIR WITH MESH; Surgeon: Medardo Tate MD; Location: [facility]; Service: General; Laterality: N/A; TONSILLECTOMY [...] file Gets together: Not on file Attends adventism service: Not on file Active member of [...] Negative Negative Specific 1.025 1.001 - 1.030 [place], [place]A Hemoglobin Negative Negative Urine PH Urine [...]
--- OUTSIDE RECORDS SUMMARY | 2020-03-12 09:09 | XMS REPORT | Encounter Summary ---
Author Author [facility] Organization [facility] Address Unknown Phone Unavailable Care Team Providers Care Pig Farmer Name Role Phone Ebony Sharp MD PCP Reason for Visit * Reason Comments Medication Refill Encounter Details Care Team Description Date Type Department Ebony Sharp MD [address] [facility] [address] [place], [place] [id number] Medication Refill 06/16/2019 Refill [facility] Primar y Care - [place] [address] [facility] [address] [place], [place] [id number] Social History Date Tobacco Use Types Packs/Day [...]
--- OUTSIDE RECORDS SUMMARY | 2020-03-12 09:09 | XMS REPORT | Encounter Summary ---
Author Author [facility] Organization [facility] Address Unknown Phone Unavailable Care Team Providers Care Systems Testing Laboratory Technician Name Role Phone Ebony Sharp MD PCP Reason for Visit * Auth/Cert Referred By Contact Referred To Contact Status Reason Specialty Diagnoses / Procedures Diagnoses R10.9 P rocedures CYSTO/URETERO W/LITHOTRIPSY &INDWELL STENT INSRT CYSTOSCOPY, LEFT RETROGRADE PYELOGRAM, LEFT URETEROSCOPY, LASER LITHOTRIPSY, LEFT URETERAL STENT PLACEMENT Encounter Details Care Team Description Date Type Department Medardo Pierce MD [address] [place] [address] [phone] [place] [address] [place] [address] [phone] 06/28/2019 Anesthesia [facility] [address] [place] [address] Anesthesia Record Responsible Anesthesiologist Anesthesia Start Time [...] placement: Yes; Amy omalley CRNA Placed By: Liner Inserter; Site: Oral; Device: LMA; Size: 3; Attempts: [...] Medardo Pierce MD - 06/28/2019 1:52 PM HAND SIZER Anesthesia Post Evaluation Procedure(s):CYSTOSCOPY, LEFT RETROGRADE PYELOGRAM, [...] SpO2 93 % filed at 06/28/2019 1130 SIZER * Anesthesia Preprocedure Evaluation - Medardo Pierce MD - 06/28/2019 8:05 AM HAND SIZER Relevant Problems No relevant active problems Anesthesia [...] and supraglottic airway device Plan discussed with BOAT FUELER. Anesthetic plan and risks discussed with patient. Use of blood products discussed with patient whom did not consent to blood produ cts. Special considerations: Jewish. Post-operative analgesia: routine analgesia and antiemetics Recovery plan: PACU Risk factors for PONV: female and non smoker PONV Risk: moderate Notes LMA ok as NPO per guidelines and no active reflux or nausea. Risks/benefits/alternatives discussed with patient and all questions sought and answered. Patient wishes to proceed. Poor dentition SIZER documented in this encounter Plan of Treatment Not on filedocumented as of this encounter Visit Diagnoses Not on filedocumented in this encounter Administered Medications Action Date Dose Rate Site Medication Order MAR Action 06/28/2019 9:08 AM HAND SIZER 2 g ceFAZolin (ANCEF) injection Given As needed, Starting Wed06/28/19 at 0908 , Anesthesia Intra-op 06/28/2019 10:13 AM HAND SIZER 25 mcg fentaNYL (SUBLIMAZE) injection Given Intravenous, As needed, Starting Wed06/28/19 at 0909, Anesthesia Intra-op 25 mcg Given 06/28/2019 10:05 AM HAND SIZER 25 mcg Given 06/28/2019 9:09 AM HAND SIZER 06/28/2019 9:04 AM HAND SIZER 50 mg lidocaine (pf) (XYLOCAINE-MPF) 10 mg/mL Given (1 %) injection Intravenous, As needed, Starting Wed06/28/19 at 0904, Anesthesia Intra-op 06/28/2019 8:59 AM HAND SIZER 1 mg midazolam (PF) (VERSED) injection Given Intravenous, As needed, Starting Wed06/28/19 at 0859, Anesthesia Intra-op 06/28/2019 9:48 AM HAND SIZER 4 mg ondansetron (ZOFRAN) injection Given Intravenous, As needed, Starting Wed06/28/19 at 0948, Anesthesia Intra-op 06/28/2019 9:04 AM HAND SIZER 200 mg propofol (DIPRIVAN) injection Given Intravenous, As needed, Starting Wed06/28/19 at 0904, Anesthesia Intra-op documented in this encounter
--- OUTSIDE RECORDS SUMMARY | 2020-03-12 09:09 | XMS REPORT | Encounter Summary ---
Author Author [facility] Organization [facility] Address Unknown Phone Unavailable Care Team Providers Care Carpenter Cradle And Dolly Name Role Phone Ebony Sharp MD PCP Encounter Details Care Team Description Date Type Department Ebony Sharp MD [address] [facility] [address] [place], [place] [id number] Left flank pain; Essential hypertension; Type 2 diabetes mellitus with hyperglycemia, 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); Hyperthyroidism 06/13/2019 Lab [facility] Primar y Care - [facility] [place] [address] [facility] [address] [facility] [place], [place] [id number] Social History Date Tobacco Use Types Packs/Day [...] very poorly controlled. You MUST see an incident response analyst for management. This is far too complicated [...] 2:29 PM CDT) Culture Result No growth [facility] Specimen Urine Performing Organization Address [facility] Ph one Number [address] [address] LABORATORIES [facility] [address] [place] [address] * Urinalysis Microscopic Only (06/13/2019 2:29 PM CDT) Microscopic RBC 11 - 20 (A) 0 - 5 /hpf [facility] Microscopic WBC 21-40 (A) 0 - 5 /hpf [facility] Epithelial Large (A) Absent [facility] Lab Hyaline Cast Absent Absent [facility] Bacteria Absent Absent [facility] Specimen Urine Performing Organization Address City/[facility] [email or web address] Ph one Number [address] [place] [address] LABORATORIES [facility] [address] [place] [address] * Thyroid Stimulating Hormone (06/13/2019 2:29 PM CDT) Pathologist [facility] Thyroid 0.19 (L) 0.47 - 4.68 uIU/mL [facility] Lab Hormone Specimen Blood Performing Organization Address [facility] Ph one Number [facility] [address] [place] [address] LABORATORIES [facility] [address] [place] [address] * T4 Free (06/13/2019 2:29 PM CDT) Pathologist [facility] T4 Free 1.0 0.8 - 2.2 ng/dL [facility] Specimen Blood Performing Organization Address City/[facility] Ph one Number [facility] [address] [place] [address] LABORATORIES [facility] [address] [place] [address] * Hemoglobin A1C (06/13/2019 2:29 PM CDT) Pathologist [facility] Hemoglobin A1C 11.0 (H) 4.0 - 5.6 % [facility] Lab Non-diabetic 4.0 - 5.6 % Prediabetes 5.7 - 6.4 % Diabetes >= 6.5 % Specimen Blood Performing Organization Address City/[facility] Ph one Number [facility] [address] [place] [address] LABORATORIES [facility] [address] [place] [address] * Comprehensive Metabolic Panel (06/13/2019 2:29 PM CDT) Pathologist [facility] Sodium 136 133 - 147 MEQ/L [facility] Potassium 4.4 3.5 - 5.3 MEQ/L [facility] Chloride 98 96 - 112 MEQ/L [facility] Carbon Dioxide 29 20 - 32 MEQ/L [facility] Anion Gap 9 5 - 17 [facility] Calcium 9.4 8.4 - 10.5 mg/dL [facility] Glucose 301 (H) 70 - 100 mg/dL [facility] Protein Total 7.9 6.0 - 8.2 g/dL [facility] Serum [facility] Lab Albumin 4.3 3.5 - 5.0 g/dL [facility] Alkaline 104 42 - 140 IU/L [facility] Lab Alanine 39 (H) 0 - 34 IU/L [facility] e Aspartate 41 15 - 46 IU/L [facility] e Bilirubin Total 0.2 0.2 - 1.3 mg/dL [facility] Blood Urea 12 7 - 26 mg/dL [facility] Creatinine 0.7 0.4 - 1.1 mg/dL [facility] eGFR Female AA 100 60 - 200 [facility] mL/min/1.73sq [facility] Lab eGFR Female 84 60 - 200 [facility] Non-AA mL/min/1.73sq [facility] Specimen Blood Performing Organization Address City/State/Zipcode Ph one Number [address] [address] LABORATORIES [facility] [address] [place] [address] * CBC and Diff (manual diff if necessary) (06/13/2019 2:29 PM CDT) WBC 9.20 4.00 - 11.00 TH/uL [facility] Lab RBC 4.55 4.00 - 5.00 MIL/uL [facility] Lab Hemoglobin 14.9 12.0 - 15.0 g/dL [facility] Hematocrit 46 (H) 36 - 45 % [facility] MCV 100 (H) 80 - 99 fL [facility] MCH 33 27 - 34 pg [facility] MCHC 33 32 - 36 % [facility] RDW 13.3 11.5 - 14.5 % [facility] Platelet Count 208 140 - 400 TH/uL [facility] MPV 10.3 9.4 - 12.3 fL [facility] Nucleated RBCs 0 0 - 0 /100 [facility] % Neutrophils 53 45 - 78 % [facility] %Lymphocytes 34 15 - 47 % [facility] %Monocytes 9 0 - 12 % [facility] %Eosinophils 3 0 - 7 % [facility] %Basophils 1 0 - 2 % [facility] % Imm Grans 0 0 - 1 % [facility] # Granulocytes 4.91 1.70 - 6.80 TH/uL [facility] # Lymphocytes 3.14 1.00 - 3.30 TH/uL [facility] # Monocytes 0.79 0.20 - 0.90 TH/uL [facility] # Eosinophils 0.28 0.00 - 0.40 TH/uL [facility] # Basophils 0.08 0.00 - 0.10 TH/uL [facility] Specimen Blood Performing Organization Address City/State/[place] [address] LABORATORIES [facility] [address] [place] [address] * Urinalysis Reflex (06/13/2019 2:29 PM CDT) Appearance, Yellow [facility] Glucose Urine >=1000 (A) Negative mg/dL [facility] Bilirubin Urine Negative Negative [facility] Ketones Urine Negative Negative mg/dL [facility] Specific >=1.030 1.001 - 1.030 [facility] Lab Hemoglobin Small (A) Negative [facility] PH Urine 5.0 5.0 - 8.0 [facility] Protein Urine Trace (A) Negative mg/dL [facility] Lab Urobilinogen Negative Negative EU/dL [facility] Nitrite Urine NegativeComment: Culture Negative [facility] Lab Leukocyte Negative Negative [facility] Lab Specimen Urine Performing Organization Address City/State/[facility] [email or web address] Ph one Number [facility] [address] [place] [address] LABORATORIES [facility] [address] [place] [address] documented in this encounter Visit Diagnoses Diagnosis Left flank pain Abdominal pain, unspecified site Essential hypertension Unspecified essential hypertension Type 2 diabetes mellitus with hyperglyc emia, 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) Hyperthyroidism Thyrotoxicosis without mention of goite r or other cause, without mention of thyrotoxic crisis or storm documented in this encounter
--- OUTSIDE RECORDS SUMMARY | 2020-03-12 09:09 | XMS REPORT | Encounter Summary ---
Author Author [facility] Organization [facility] Address Unknown Phone Unavailable Care Team Providers Care Hl7 Developer Name Role Phone Ebony Sharp MD PCP Reason for Referral * MRI/CAT/PET Scan (Routine) Referred By Contact Referred To Contact Status Reason Specialty Diagnoses / Procedures Ebony Sharp MD [address] [facility] [address] [place] [address] [place] [address] Closed Radiology Diagnoses Left flank pain P rocedures CT Abdomen Pelvis wo contrast Reason for Visit * MRI/CAT/PET Scan (Routine) Referred By Contact Referred To Contact Status Reason Specialty Diagnoses / Procedures Ebony Sharp MD [address] [place] [address] Closed Radiology Diagnoses Left flank pain P rocedures CT Abdomen Pelvis wo contrast Encounter Details Care Team Description Date Type Department Ebony Sharp MD 20 [facility] [address] [place] [address] [phone] Left flank pain 06/16/2019 [facility] [address] [place] [address] Social History Date Tobacco Use Types Packs/Day [...] obstructive pulmonary disease, unspecified COPD type ([facility]) 06/06/2019 07/28/2019 cephalexin (KEFLEX) 500 0 MG [...] the liver Stable ureteral diverticulum READING SITE: [facility] Narrative Performed At Patient: ISIAH BENÍTEZ Sex#: F #: [id number] Jose #: [id number] Location: [facility] [place] [address] 23 Procedure Requested: [id number] CT ABDOM EN PELVIS WO CONTRAST Reason [...] ISIAH BENÍTEZ Sex#: F #: [id number] Jose#: [id number] Location: [facility] [place] Procedure Requested: [id number] CT ABDOMEN PELVIS WO CONTRAST Reason for [...] the liver Stable ureteral diverticulum READING SITE: [facility] Address City/State/Zipcode Ph one Number [place] documented in this encounter Visit Diagnoses Diagnosis Left flank pain Abdominal pain, unspecified site documented in this encounter
--- OUTSIDE RECORDS SUMMARY | 2020-03-12 09:09 | XMS REPORT | Encounter Summary ---
Author Author [facility] Organization [facility] Address Unknown Phone Unavailable Care Team Providers Care License Issuer Name Role Phone Ebony Sharp MD PCP Reason for Referral * MRI/CAT/PET Scan (Routine) Referred By Contact Referred To Contact Status Reason Specialty Diagnoses / Procedures Ebony Sharp MD [address] [facility] [address] [place] [address] [facility] [place] [address] Closed Radiology Diagnoses Left flank pain P rocedures CT Abdomen Pelvis wo contrast * Consultation (Routine) Referred By Contact Referred To Contact Status Reason Specialty Diagnoses / Procedures Ebony Sharp MD [address] [facility] [address] [place] [address] [address] [facility] [address] [place] [address] Closed Specialty Services Urology Diagnoses Required Left flank pain Reason for Visit * Reason Comments Follow-up Hospital FU Encounter Details Care Team Description Date Type Department Ebony Sharp MD [address] [facility] [address] [place] [id number] [phone] Type 2 diabetes mellitus with hyperglyce prasanna, 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) (Primary Dx); Mixed hyperlipidemia; Essential hypertension; Left flank pain; Hyperthyroidism 06/13/2019 Office Visit [facility] [address] [facility] [address] [place] [address] Social History Date Tobacco Use Types Packs/Day [...] - 06/13/2019 1:30 PM CDT CC: Follow-up ([facility] ) HPI : Isiah Benítez is a 68 y.o. female who presents with complaints of Follow-up ([facility] ) Patient here for a follow up. [...] on phone: None Gets together: None Attends jew service: None Active member of club or [...] mg per tablet; Take 1 tablet by mo uth every 6 (six) hours as needed for [...] CDT) Specimen Impressions Performed At Impression: [facility] [place] CT cause for patient's pain identifi ed on limited unenhanced CT of the abdomen and pelvis Stable nonobstructing left renal stone Hepatomegaly and diffuse fatty infiltra tion of the liver Stable ureteral diverticulum READING SITE: [facility] Narrative Performed At Patient: ISIAH BENÍTEZ Sex#: F #: [id number] Jose #: [id number] [place]: [facility] 23 Procedure Requested: [id number] CT ABDOM EN PELVIS WO CONTRAST Reason [...] 1:50 PM CDT Patient: ISIAH BENÍTEZ Sex#: Paulina #: 1950 Jose#: [id number] Location: [facility] [place] Procedure Requested: [id number] CT ABDOMEN PELVIS WO CONTRAST Reason for [...] liver Stable ureteral diverticulum READING SITE: [facility] Performing Organization Address [facility] one Number LEVI * Thyroid Stimulating Hormone (06/13/2019 2:29 PM CDT) Thyroid 0.19 (L) 0.47 - 4.68 uIU/mL [facility] Hormone Specimen Blood Performing Organization Address [facility] one Number [facility] [address] [place] [address] LABORATORIES [facility] [address] [place] [address] * T4 Free (06/13/2019 2:29 PM CDT) T4 Free 1.0 0.8 - 2.2 ng/dL [facility] Specimen Blood Performing Organization Address [facility] one Number [facility] [address] [place] [address] LABORATORIES [facility] [address] [place] [address] * Hemoglobin A1C (06/13/2019 2:29 PM CDT) Pathologist [facility] Hemoglobin A1C 11.0 (H) 4.0 - 5.6 % [facility] Comment: Hospital Lab Non-diabetic 4.0 - 5.6 % Prediabetes 5.7 - 6.4 % Diabetes >= 6.5 % Specimen Blood Performing Organization Address [facility] one Number [facility] [address] [place] [address] LABORATORIES [facility] [address] [place] [address] * Comprehensive Metabolic Panel (06/13/2019 2:29 PM CDT) Sodium 136 133 - 147 MEQ/L [facility] Potassium 4.4 3.5 - 5.3 MEQ/L [facility] Chloride 98 96 - 112 MEQ/L [facility] Carbon Dioxide 29 20 - 32 MEQ/L [facility] Anion Gap 9 5 - 17 [facility] Calcium 9.4 8.4 - 10.5 mg/dL [facility] Glucose 301 (H) 70 - 100 mg/dL [facility] Protein Total 7.9 6.0 - 8.2 g/dL [facility] Serum [facility] Albumin 4.3 3.5 - 5.0 g/dL [facility] Alkaline 104 42 - 140 IU/L [facility] Alanine 39 (H) 0 - 34 IU/L [facility] e Aspartate 41 15 - 46 IU/L [facility] e Bilirubin Total 0.2 0.2 - 1.3 mg/dL [facility] Blood Urea 12 7 - 26 mg/dL [facility] Creatinine 0.7 0.4 - 1.1 mg/dL [facility] eGFR Female AA 100 60 - 200 [facility] mL/min/1.73sq [facility] eGFR Female 84 60 - 200 [facility] Non-AA mL/min/1.73sq [facility] Specimen Blood Performing Organization Address City/State/[facility] Ph one Number [address] [address] LABORATORIES [facility] [address] [place] [address] * CBC and Diff (manual diff if necessary) (06/13/2019 2:29 PM CDT) WBC 9.20 4.00 - 11.00 TH/uL [facility] RBC 4.55 4.00 - 5.00 MIL/uL [facility] Hemoglobin 14.9 12.0 - 15.0 g/dL [facility] Hematocrit 46 (H) 36 - 45 % [facility] MCV 100 (H) 80 - 99 fL [facility] MCH 33 27 - 34 pg [facility] MCHC 33 32 - 36 % [facility] RDW 13.3 11.5 - 14.5 % [facility] Platelet Count 208 140 - 400 TH/uL [facility] MPV 10.3 9.4 - 12.3 fL [facility] Nucleated RBCs 0 0 - 0 /100 [facility] % Neutrophils 53 45 - 78 % [facility] %Lymphocytes 34 15 - 47 % [facility] %Monocytes 9 0 - 12 % [facility] %Eosinophils 3 0 - 7 % [facility] %Basophils 1 0 - 2 % [facility] % Imm Grans 0 0 - 1 % [facility] # Granulocytes 4.91 1.70 - 6.80 TH/uL [facility] # Lymphocytes 3.14 1.00 - 3.30 TH/uL [facility] # Monocytes 0.79 0.20 - 0.90 TH/uL [facility] # Eosinophils 0.28 0.00 - 0.40 TH/uL [facility] # Basophils 0.08 0.00 - 0.10 TH/uL [facility] Specimen Blood Performing Organization Address City/State/Zipcode Ph one Number [address] [address] LABORATORIES [facility] [address] [place] [address] * Urinalysis Reflex (06/13/2019 2:29 PM CDT) Appearance, Yellow [facility] Glucose Urine >=1000 (A) Negative mg/dL [facility] Bilirubin Urine Negative Negative [facility] Ketones Urine Negative Negative mg/dL [facility] Specific >=1.030 1.001 - 1.030 [facility] Hemoglobin Small (A) Negative [facility] PH Urine 5.0 5.0 - 8.0 [facility] Protein Urine Trace (A) Negative mg/dL [facility] Urobilinogen Negative Negative EU/dL [facility] Nitrite Urine NegativeComment: Culture Negative [facility] Leukocyte Negative Negative [facility] Specimen Urine Performing Organization Address City/State/Zipcode Ph one Number [facility] [address] [place] [address] LABORATORIES [facility] [address] [place] [address] documented in this encounter Visit Diagnoses Diagnosis Type 2 diabetes mellitus with hyperglyc emia, 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) Mixed hyperlipidemia Essential hypertension Unspecified essential hypertension Left flank pain Abdominal pain, unspecified site Hyperthyroidism Thyrotoxicosis without mention of goite r or other cause, without mention of thyrotoxic crisis or storm documented in this encounter
--- OUTSIDE RECORDS SUMMARY | 2020-03-12 09:09 | XMS REPORT | Encounter Summary ---
Author Author [facility] Organization [facility] Address Unknown Phone Unavailable Care Team Providers Care Sap Basis Name Role Phone Ebony Sharp MD PCP Reason for Visit * Auth/Cert Referred By Contact Referred To Contact Status Reason Specialty Diagnoses / Procedures Diagnoses R10.9 P rocedures CYSTO/URETERO W/LITHOTRIPSY &INDWELL STENT INSRT CYSTOSCOPY, LEFT RETROGRADE PYELOGRAM, LEFT URETEROSCOPY, LASER LITHOTRIPSY, LEFT URETERAL STENT PLACEMENT Encounter Details Care Team Description [place] [address] [place] [address] [phone] CYSTOSCOPY, LEFT RETROGRADE PYELOGRAM, L EFT URETEROSCOPY, LEFT HOLMIUM LASER LITHOTRIPSY WITH STONE EXTRACTION, AND LEFT URETERAL STENT PLACEMENT 06/28/2019 Surgery [facility] [address] [place] [address] Social History Date Tobacco Use Types Packs/Day [...] Comments Vital Sign 152/95 06/28/2019 11:30 AM UPSETTER HELPER Blood Pressure 78 06/28/2019 11:30 AM UPSETTER HELPER Pulse 36.6 C (97.8 F) 06/28/2019 10:15 AM UPSETTER HELPER Temperature 13 06/28/2019 11:30 AM UPSETTER HELPER Respiratory Rate 93% 06/28/2019 11:30 AM UPSETTER HELPER Oxygen Saturation - - Inhaled Oxygen Concentration 101.2 kg (223 lb) 06/22/2019 10:26 AM CDT Weight 152.4 cm (5') 06/22/2019 10:26 AM CDT Height 43.55 06/22/2019 10:26 AM CDT Body Mass Index documented in this encounter Discharge Instructions * Pre-Procedure Instructions* Rosy Hart RN - 06/22/2019 10:41 AM CDT Current Outpatient Medications Medication Sig Note: vit A/vit C/biotin/zinc/copper ([id number],VIT A,C-BIOTIN, ORAL) Take by mouth daily. Note:stop [...] A/vit Take by mouth 0 C/biotin/zinc/copper daily. ([id number],VIT A,C-BIOTIN, ORAL) 08/26/2017 08/28/2019 albuterol (VENTOLIN HFA) [...] Darin Huber MD - 06/28/2019 10:07 AM UPSETTER HELPER Brief Operative Note Caren Ernestina Patten 06/28/2019 Event Time In Time Out Procedure / Incision Start 915 Pre-op Diagnosis: Right nephrolithiasis Post-op Diagnosis: Right nephrolithiasis Procedure: CYSTOSCOPY, LEFT RETROGRADE PYELOGRAM, LEFT URETEROSCOPY, LASER LITHOTRIPSY, LEF T URETERAL STENT PLACEMENT, Left - Urethra Surgeon(s) and Role: * Darin Huber MD - Primary Anesthesia Type: General Staff: Nutrition Services Worker: Renaldo Menchaca RN Scrub Person: Estefany Correa Anesthesiologist: Medardo Pierce MD FILLING STATION LABORER: Rosa M White CRNA Findings: Large left lower pole stone Estimated Blood Loss: 10 mL Specimens: None Implants: Implant Name Type Inv. Item Serial No. Gas Station Service Attendant Lot No. LRB No. Used Action IMPLANT STENT URETERAL CONTOUR 7FR X 24CM W/O GUIDWIRE [id number] - [id number] Non-Tissue Implant IMPLANT STENT URETERAL CONTOUR 7FR X 24CM W/O GUIDWIR E [id number] [email or web address] [id number] Left 1 Implanted Complications: None Description of [...] began the procedure by inserting the 21 German rigid cystoscope transurethral without difficulty once in the bladder identified the left ureteral orifice. T his was then cannulated with a 5 German open-ended stent retrograde pyelogram de monstrated a [...] access sheath. I then selected a 7 German by 24 cm stent was passed to the renal pelvis under fluoroscopic guidance I did call the urinary bladder under di rect visual guidance. An 18 German Ballard catheter was placed in patient's bladd er was irrigated out. This is placed to gravity drainage. Darin Huber MD Date: 06/28/2019 Time: 10:08 AM TTER HELPER documented in this encounter Plan of Treatment Not on filedocumented as of this encounter Procedures Comments Procedure Name Priority Date/Time Associated Diag nosis GLUCOSE POC Routine 06/28/2019 10:20 AM UPSETTER HELPER CYSTOSCOPY, RETROGRADE 06/28/2019 R10.9 PYELOGRAM, URETEROSCOPY, 8:59 AM UPSETTER HELPER LASER LITHOTRIPSY, WITH URETERAL STENT PLACEMENT Special Needs HOLMIUM LASER ORDERED PER RADHA BUSTOS MEDICARE- ARMJEHOVAH 'S WITNESS- REFUSED BLOOD PRODUCTS SASHA WITH CPAP USE OCCASIONAL LY O2 PER NC USE PRN GLUCOSE POC Routine 06/28/2019 7:58 AM UPSETTER HELPER documented in this encounter Results * GLUCOSE POC (06/28/2019 10:20 AM UPSETTER HELPER) Only the most recent of 2 results within the time period is included. Glucose POC 263 (H) 70 - 100 mg/dL [facility] Specimen Performing Organization Address City/State/Zipcode Ph one Number [facility] [address] [place] [address] [facility] [address] [facility] [address], [facility] documented in this encounter Visit Diagnoses Not on filedocumented in this encounter Administered Medications Action Date Dose Rate Site Medication Order MAR Action albuterol (ACCUNEB) 2.5 mg/3 mL (0.083 %) nebulizer solution 2.5 mg 2.5 mg, Nebulization, Every 4 hours PRN , wheezing, Starting Wed06/28/19 at 1016, PACU (only) 06/28/2019 8:29 AM UPSETTER HELPER 20 mg famotidine (PEPCID) injection 20 mg Given 20 mg, Intravenous, Once, Wed06/28/19 a t 0830, For 1 dose, Pre-op 06/28/2019 10:59 AM UPSETTER HELPER 25 mcg fentaNYL (SUBLIMAZE) injection 25-50 mcg Given 25-50 mcg, Intravenous, Every 5 min PRN , pain, Starting Wed06/28/19 at 1016, PAC U (only), Give only if RR is greater than 8 breaths/min. Maximum of 200 mcg in 2 hours., 25 mcg Given 06/28/2019 10:46 AM UPSETTER HELPER 50 mcg Given 06/28/2019 10:37 AM UPSETTER HELPER 06/28/2019 11:26 AM UPSETTER HELPER 5 mg hydrALAZINE (APRESOLINE) injection 5 mg Given 5 mg, Intravenous, Once, Wed06/28/19 at 1145, For 1 dose, PACU (only) 06/28/2019 11:10 AM UPSETTER HELPER 2 tablets HYDROcodone-acetaminophen (NORCO) 5-325 Given mg per tablet 1-2 tablet 1-2 tablet, Oral, Every 4 hours PRN, moderate pain (pain score 4-6), Startin g Wed06/28/19 at 1013, PACU (only), Do no t exceed 4 GM/DAY of acetaminophen. If 6 5 or older do not exceed 3 GM/DAY. If chronic alcoholic do not exceed 2 GM/DAY., 06/28/2019 9:29 AM UPSETTER HELPER 50 mL Operativ e Site iohexol (OMNIPAQUE) 300 mg iodine/mL Given injection As needed, Starting Wed06/28/19 at 0929 , Intra-op 06/28/2019 11:28 AM UPSETTER HELPER 5 mg labetalol (NORMODYNE,TRANDATE) injection Given 5 mg 5 mg, Intravenous, Once, Wed06/28/19 at 1145, For 1 dose, PACU (only) 06/28/2019 8:29 AM UPSETTER HELPER 50 mL/hr 50 mL/hr lactated ringers infusion New Bag 50 mL/hr, Intravenous, Continuous, Starting Wed06/28/19 at 0830, For 48 hours, Pre-op 06/28/2019 9:30 AM UPSETTER HELPER 1 application Operativ e Site lidocaine (XYLOCAINE) [...] hours PRN, nausea/vomiting (3rd line), Starting We 06/28/19 at 1016, PACU (only) prochlorperazine (COMPAZINE) [...] and refuses IM injection., 06/28/2019 9:30 AM UPSETTER HELPER 3,000 mL Operativ e Site sodium chloride irrigation 3000 mL Given (bladder) (NS) 0.9 % As needed, Starting Wed06/28/19 at 0930 , Intra-op 3,000 mL Operative Site Given 06/28/2019 9:20 AM UPSETTER HELPER 06/28/2019 9:30 AM UPSETTER HELPER 1,000 mL Operativ e Site sterile water irrigation irrigation Given solution As needed, Starting Wed06/28/19 at 0930 , Intra-op documented in this encounter
--- OUTSIDE RECORDS SUMMARY | 2020-03-12 09:09 | XMS REPORT | Encounter Summary ---
Author Author [facility] Organization [facility] Address Unknown Phone Unavailable Care Team Providers Care Circular Knitter Name Role Phone Ebony Sharp MD PCP Reason for Visit * Reason Comments Other Encounter Details Care Team Description Date Type Department Ebony Sharp MD [address] [facility] [address] [place], [place] [id number] Other 06/24/[address] [facility] [address] [facility] [address] [place], [place] [id number] Social History Date Tobacco Use Types Packs/Day [...]
--- OUTSIDE RECORDS SUMMARY | 2020-03-12 09:09 | XMS REPORT | Encounter Summary ---
Author Author [facility] Organization [facility] Address Unknown Phone Unavailable Care Team Providers Care Fire Coordinator Name Role Phone Ebony Sharp MD PCP Reason for Visit * Reason Comments surgical clearance Encounter Details Care Team Description Date Type Department Santo Hernandez RN surgical clearance 06/21/2019 Telephone [facility] [address] [facility] [address] [place], [place] [id number] Social History Date Tobacco Use Types Packs/Day [...] Telephone Encounter - Santo Hernandez RN - 06/22/2019 3:57 PM CDT [...] with activity. * Telephone Encounter - Santo Hernandez, RN - 06/21/2019 2:15 PM CDT Pt saw urologist today, will be getting surgery for her kidney stones. Matteo avelar called to get clearance for patient to have surgery done. documented in this encounter Plan of Treatment Not on filedocumented as of this encounter Visit Diagnoses Not on filedocumented in this encounter
--- OUTSIDE RECORDS SUMMARY | 2020-03-12 09:09 | XMS REPORT | Encounter Summary ---
Author Author [facility] Organization [facility] Address Unknown Phone Unavailable Care Team Providers Care Youth Director Name Role Phone Ebony Sharp MD PCP Encounter Details Care Team Description Date [place] [address] [place], [place] [id number] 06/21/2019 Orders Only [facility] [address] [place], [place] [id number] Social History Date Tobacco Use Types Packs/Day [...] Routine Comment: CULTURE, URINE, ROUTINE MICRO NUMBER: [id number] TEST STATUS: FINAL SPECIMEN SOURCE: URINE SPECIMEN QUALITY: ADEQUATE RESULT: 50,000-100,000 CFU/mL of Lactobacillus species May represent colonizers from external and internal genitalia. No further testing (including susceptibility) will be performed. Specimen Performing Organization Address City/State/[facility] Ph one Number [facility] [address] [place] [address] documented in this encounter Visit Diagnoses Not on filedocumented in this encounter
--- OUTSIDE RECORDS SUMMARY | 2020-03-12 09:09 | XMS REPORT | Encounter Summary ---
Author Author [facility] Organization [facility] Address Unknown Phone Unavailable Care Team Providers Care Automotive Tire Worker Name Role Phone Ebony Sharp MD PCP Reason for Visit * Auth/Cert Referred By Contact Referred To Contact Status Reason Specialty Diagnoses / Procedures Diagnoses R10.9 P rocedures CYSTO/URETERO W/LITHOTRIPSY &INDWELL STENT INSRT CYSTOSCOPY, LEFT RETROGRADE PYELOGRAM, LEFT URETEROSCOPY, LASER LITHOTRIPSY, LEFT URETERAL STENT PLACEMENT Encounter Details Care Team Description [place] [address] [place] [address] [phone] Renal calculus (Primary Dx) 06/28/2019 [facility] [address] [place] [address] Social History Date Tobacco Use Types Packs/Day [...] Comments Vital Sign 152/95 06/28/2019 11:30 AM STRADDLE BUG Blood Pressure 78 06/28/2019 11:30 AM STRADDLE BUG Pulse 36.6 C (97.8 F) 06/28/2019 10:15 AM STRADDLE BUG Temperature 13 06/28/2019 11:30 AM STRADDLE BUG Respiratory Rate 93% 06/28/2019 11:30 AM STRADDLE BUG Oxygen Saturation - - Inhaled Oxygen Concentration 101.2 kg (223 lb) 06/22/2019 10:26 AM CDT Weight 152.4 cm (5') 06/22/2019 10:26 AM CDT Height 43.55 06/22/2019 10:26 AM CDT Body Mass Index documented in this encounter Discharge Instructions * Pre-Procedure Instructions* Rosy Hart RN - 06/22/2019 10:41 AM CDT Current Outpatient Medications Medication Sig Note: vit A/vit C/biotin/zinc/copper ([id number]-NMXK,VIT A,C-BIOTIN, ORAL) Take by mouth daily. Note:stop [...] A/vit Take by mouth 0 C/biotin/zinc/copper daily. (QHRZ-[id number]-[id number],VIT A,C-BIOTIN, ORAL) 08/26/2017 08/28/2019 albuterol (VENTOLIN HFA) [...] Darin Huber MD - 06/28/2019 10:07 AM STRADDLE BUG Brief Operative Note Caren Do Board 06/28/2019 Event Time In Time Out Procedure / Incision Start 915 Pre-op Diagnosis: Right nephrolithiasis Post-op Diagnosis: Right nephrolithiasis Procedure: CYSTOSCOPY, LEFT RETROGRADE PYELOGRAM, LEFT URETEROSCOPY, LASER LITHOTRIPSY, LEF T URETERAL STENT PLACEMENT, Left - Urethra Surgeon(s) and Role: * Darin Huber MD - Primary Anesthesia Type: General Staff: Care Partner: Renaldo Menchaca RN Scrub Person: Estefany Correa Anesthesiologist: Medardo Pierce MD LNA: Rosa M White CRNA Findings: Large left lower pole stone Estimated Blood Loss: 10 mL Specimens: None Implants: Implant Name Type Inv. Item Serial No. Granite Cutter Apprentice Lot No. LRB No. Used Action IMPLANT STENT URETERAL CONTOUR 7FR X 24CM W/O GUIDWIRE 180-232/[id number] - LOG [id number] Non-Tissue Implant IMPLANT STENT URETERAL CONTOUR 7FR X 24CM W/O GUIDWIR E 180-232/[id number] [employer] [id number] Left 1 Implanted Complications: None Description of [...] began the procedure by inserting the 21 Cymro rigid cystoscope transurethral without difficulty once in the bladder identified the left ureteral orifice. T his was then cannulated with a 5 Cymro open-ended stent retrograde pyelogram de monstrated a [...] access sheath. I then selected a 7 Cymro by 24 cm stent was passed to the renal pelvis under fluoroscopic guidance I did call the urinary bladder under di rect visual guidance. An 18 Cymro Ballard catheter was placed in patient's bladd er was irrigated out. This is placed to gravity drainage. Darin Huber MD Date: 06/28/2019 Time: 10:08 AM DDLE BUG documented in this encounter Plan of Treatment Not on filedocumented as of this encounter Procedures Comments Procedure Name Priority Date/Time Associated Diag nosis GLUCOSE POC Routine 06/28/2019 10:20 AM STRADDLE BUG CYSTOSCOPY, RETROGRADE 06/28/2019 R10.9 PYELOGRAM, URETEROSCOPY, 8:59 AM STRADDLE BUG LASER LITHOTRIPSY, WITH URETERAL STENT PLACEMENT Special Needs HOLMIUM LASER ORDERED PER LINDA [facility]SHU[facility]- ARMJEHOVAH 'S WITNESS- REFUSED BLOOD PRODUCTS SASHA WITH CPAP USE OCCASIONAL LY O2 PER NC USE PRN GLUCOSE POC Routine 06/28/2019 7:58 AM STRADDLE BUG documented in this encounter Results * GLUCOSE POC (06/28/2019 10:20 AM STRADDLE BUG) Only the most recent of 2 results within the time period is included. Glucose POC 263 (H) 70 - 100 mg/dL [facility] Specimen Performing Organization Address City/State/Zipcode Ph one Number [facility] [address] [facility] [place] [address] [facility] [address] [facility] [place] [address], [facility] documented in this encounter Visit Diagnoses Diagnosis Renal calculus Calculus of kidney documented in this encounter Administered Medications Action Date Dose Rate Site Medication Order MAR Action albuterol (ACCUNEB) 2.5 mg/3 mL (0.083 %) nebulizer solution 2.5 mg 2.5 mg, Nebulization, Every 4 hours PRN , wheezing, Starting Wed06/28/19 at 1016, PACU (only) 06/28/2019 8:29 AM STRADDLE BUG 20 mg famotidine (PEPCID) injection 20 mg Given 20 mg, Intravenous, Once, Wed06/28/19 a t 0830, For 1 dose, Pre-op 06/28/2019 10:59 AM STRADDLE BUG 25 mcg fentaNYL (SUBLIMAZE) injection 25-50 mcg Given 25-50 mcg, Intravenous, Every 5 min PRN , pain, Starting Wed06/28/19 at 1016, PAC U (only), Give only if RR is greater than 8 breaths/min. Maximum of 200 mcg in 2 hours., 25 mcg Given 06/28/2019 10:46 AM STRADDLE BUG 50 mcg Given 06/28/2019 10:37 AM STRADDLE BUG 06/28/2019 11:26 AM STRADDLE BUG 5 mg hydrALAZINE (APRESOLINE) injection 5 mg Given 5 mg, Intravenous, Once, Wed06/28/19 at 1145, For 1 dose, PACU (only) 06/28/2019 11:10 AM STRADDLE BUG 2 tablets HYDROcodone-acetaminophen (NORCO) 5-325 Given mg per tablet 1-2 tablet 1-2 tablet, Oral, Every 4 hours PRN, moderate pain (pain score 4-6), Startin g Wed06/28/19 at 1013, PACU (only), Do no t exceed 4 GM/DAY of acetaminophen. If 6 5 or older do not exceed 3 GM/DAY. If chronic alcoholic do not exceed 2 GM/DAY., 06/28/2019 11:28 AM STRADDLE BUG 5 mg labetalol (NORMODYNE,TRANDATE) injection Given 5 mg 5 mg, Intravenous, Once, Wed06/28/19 at 1145, For 1 dose, PACU (only) 06/28/2019 8:29 AM STRADDLE BUG 50 mL/hr 50 mL/hr lactated ringers infusion [...]
--- OUTSIDE RECORDS SUMMARY | 2020-03-12 09:09 | XMS REPORT | Encounter Summary ---
Author Author [facility] Organization [facility] Address Unknown Phone Unavailable Care Team Providers Care Credit Verification Clerk Name Role Phone Ebony Sharp MD PCP Encounter Details Care Team Description Date Type Department Kidney stone 06/21/2019 [facility] [address] [place] [address] Social History Date Tobacco Use Types Packs/Day [...] changes. Narrative Performed At Patient: ISIAH BENÍTEZ MCASHWINJEFFREY Sex#: F #: [id number] Jose #: [id number] Location: [facility] XR Procedure Requested: [id number] XR ABDOM EN SINGLE VIEW AP Reason [...] ISIAH BENÍTEZ Sex#: F #: [id number] Jose#: [id number] Location: [facility] XR Procedure Requested: [id number] XR ABDOMEN SINGLE VIEW AP Reason for Exam: Kidney stone Exam Ordered: 06/21/2019 1240 Exam Date/Time: 06/21/2019 1248 Begin exam date/time: 06/21/2019 1241 Reading Site: [facility] XR ABDOMEN SINGLE VIEW [...]
--- OUTSIDE RECORDS SUMMARY | 2020-03-12 09:10 | XMS REPORT | Encounter Summary ---
Author Author [facility] Organization [facility] Address Unknown Phone Unavailable Care Team Providers Care Giant Tire Repairer Name Role Phone Ebony Sharp MD PCP Reason for Referral * Surgical (Routine) Referred By Contact Referred To Contact Status Reason Specialty Diagnoses / Procedures Walker Funez MD [address] [facility] [address] [place] [address] [facility] [address] [place] [address] Closed Diagnoses Carpal tunnel syndrome, bilateral P rocedures Referral to Outside Surgery [place] WRIST ARTHROSCOP,RELEASE XVERS LIG Reason for Visit * Reason Comments Follow-up Follow-up Encounter Details Care Team Description Date Type Department Walker Funez MD [address] [facility] [address] [place], [place] [id number] Bilateral hand pain (Primary Dx); Carpal tunnel syndrome, bilateral 02/17/2019 Office Visit [facility] [address] [facility] [address] [place] [address] Social History Date Tobacco Use [...] Funez MD - 02/17/2019 1:15 PM CDT [facility] [address] [facility] [address] [facility] [address] Caren Patten female 1950 Chief Complaint Chief Complaint Patient presents with Left Hand - Follow-up Right Hand - Follow-up HPI Ms. Patten is a pleasant 68 y.o. 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 No real treatment other than [...] bleeding 08/08/2016 Allergic rhinitis Anxiety Bronchitis, chronic ([facility]) Cataract 2011, 2012 bilat cateract surgery Chronic pain disorder back, ribs, and ankle. COPD (chronic obstructive pulmonary disease) ([facility]) Depression Draining postoperative wound 08/08/2016 Endometriosis Essential hypertension Fractures [address] in Left ankle MATA (generalized anxiety disorder) 09/24/2015 Hernia of abdominal cavity Mixed hyperlipidemia 09/24/2015 Morbid obesity due to excess calories ([facility]) 07/10/2016 On home oxygen therapy 2L - usually needs if has an exerbation of COPD, or resp illness SASHA on CPAP Osteoarthritis Sleep apnea uses CPAP Type 2 diabetes mellitus with hyperglycemia, with long-term current use of i nsulin ([facility]) 06/29/2016 Urinary calculi Urinary tract infection [...]
--- OUTSIDE RECORDS SUMMARY | 2020-03-12 09:10 | XMS REPORT | Encounter Summary ---
Author Author [facility] Organization [facility] Address Unknown Phone Unavailable Care Team Providers Care Manager Hospital Name Role Phone Ebony Sharp MD PCP Reason for Referral * Consultation (Routine) Referred By Contact Referred To Contact Status Reason Specialty Diagnoses / Procedures Ebony Sharp MD [address] [facility] [address] [place] [address] [facility] [address] [facility] [address] [place] [address] Closed Specialty Services Pulmonary Diagnoses Required Disease / Pre-operative Pulmonology clearance * Consultation (Routine) Referred By Contact Referred To Contact Status Reason Specialty Diagnoses / Procedures Ebony Sharp MD [address] [facility] [address] [place] [address] [facility] [address] [facility] [address] [place] [address] Closed Specialty Services Endocrinology Diagnoses Required Hemoglobin A1c greater than 9.0% Encounter Details Care Team Description Date Type Department Jennifer eFng RN 01/17/2019 Telephone [facility] [address] [facility] [address] [place] [id number] Social History Date Tobacco Use Types Packs/Day [...]
--- OUTSIDE RECORDS SUMMARY | 2020-03-12 09:10 | XMS REPORT | Encounter Summary ---
Author Author [facility] Organization [facility] Address Unknown Phone Unavailable Care Team Providers Care Gas Station Attendant Name Role Phone Ebony Sahrp MD PCP Reason for Visit * Reason Comments Post Op Exam Encounter Details Care Team Description Date Type Department Sharona Ruvalcaba, KADEN [address] [facility] [address] [place], [place] [id number] S/P carpal tunnel release (Primary Dx) 03/23/2019 [facility] Visit [facility] [address] [facility] [address] [place], [place] [phone] Social History Date Tobacco Use Types Packs/Day [...] Ruvalcaba, KADEN - 03/23/2019 12:00 PM CDT [facility] [address] [facility] [address] [place] [address] Caren Patten 68 y.o. female : 1950 03/23/2019 Office Visit: Provider: Location of care: [facility] Chief Complaint Chief Complaint Patient presents [...] bleeding 08/08/2016 Allergic rhinitis Anxiety Bronchitis, chronic ([facility]) Cataract 2011, 2012 bilat cateract surgery Chronic pain disorder back, ribs, and ankle. COPD (chronic obstructive pulmonary disease) ([facility]) Depression Draining postoperative wound 08/08/2016 Endometriosis Essential hypertension Fractures [address] in Left ankle MATA (generalized anxiety disorder) 09/24/2015 Hernia of abdominal cavity Mixed hyperlipidemia 09/24/2015 Morbid obesity due to excess calories ([facility]) 07/10/2016 On home oxygen therapy 2L - usually needs if has an exerbation of COPD, or resp illness SASHA on CPAP Osteoarthritis Sleep apnea uses CPAP Type 2 diabetes mellitus with hyperglycemia, with long-term current use of i nsulin ([facility]) 06/29/2016 Urinary calculi Urinary tract infection Goldberg-Ekbom [...] ANKLE ARTHRODESIS; Surgeon: Adelaida Olivas MD; Location: [facility] Main OR; Service: Orthopedics; Later [...] 1 tablet (40 mg total) by mouth jcalros ly. 30 tablet 11 BREO ELLIPTA 200-25 [...] file Gets together: Not on file Attends buddhist service: Not on file Active member of [...] * This record may include dictation using EXTRABANCA software. It may conta in inherent spelling [...]
--- OUTSIDE RECORDS SUMMARY | 2020-03-12 09:10 | XMS REPORT | Encounter Summary ---
Author Author [facility] Organization [facility] Address Unknown Phone Unavailable Care Team Providers Care Land Mobile Radio Technician Name Role Phone bEony Sharp MD PCP Encounter Details Care Team Description Date Type Department Walker Funez MD [address] [facility] [address] [place] [address] 01/18/2019 Telephone [facility] [address] [facility] [address] [place], [place] [phone] Social History Date Tobacco Use Types Packs/Day [...] encounter Miscellaneous Notes * Telephone Encounter - Sydeny Howard MA - 01/18/2019 1:34 PM CDT [...]
--- OUTSIDE RECORDS SUMMARY | 2020-03-12 09:10 | XMS REPORT | Encounter Summary ---
Author Author [facility] Organization [facility] Address Unknown Phone Unavailable Care Team Providers Care Hospice Social Worker Name Role Phone Ebony Sharp MD PCP Reason for Visit * Reason Comments Other Encounter Details Care Team Description Date Type Department Ebony Sharp MD [address] [facility] [address] [place], [place] [phone] Other 03/13/2019 Refill [facility] [address] [facility] [address] [place], [place] [phone] Social History Date Tobacco Use Types Packs/Day [...]
--- OUTSIDE RECORDS SUMMARY | 2020-03-12 09:10 | XMS REPORT | Encounter Summary ---
Author Author [facility] Organization [facility] Address Unknown Phone Unavailable Care Team Providers Care Branding Specialist Name Role Phone Ebony Sharp MD PCP Reason for Visit * Reason Comments Flank Pain Patient reports bilateral f lank pain and lower abd pain. patient reports nausea. patient reports pain with urina tion. Encounter Details Care Team Description Date Type Department Maggie Yap DO [address] [place] [address] [phone] Acute cystitis without hematuria (Primar y Dx) 05/26/[address] [facility] 05/27/[address] [place] [address] Social History Date Tobacco Use Types Packs/Day [...] Care Everywhere.* Urinary Tract Infections (UTIs), Understanding (Nauruan) * Pancreatitis, Understanding (Nauruan) documented in this encounter Medications at Time [...] august - 05/26/2019 10:00 PM CDT 05/26/2019 [facility] History Chief Complaint Patient presents [...] Allergic rhinitis Anxiety Bronchitis, chronic ([facility]) Cataract 2011, 2012 bilat cateract surgery Chronic pain disorder back, ribs, and ankle. COPD (chronic obstructive pulmonary disease) ([facility]) Depression Draining postoperative wound 08/08/2016 Endometriosis Essential hypertension Fractures [address] in Left ankle MATA (generalized anxiety disorder) 09/24/2015 Hernia of abdominal cavity Mixed hyperlipidemia 09/24/2015 Morbid obesity due to excess calories ([facility]) 07/10/2016 On home oxygen therapy 2L - usually needs if has an exerbation of COPD, or resp illness SASHA on CPAP Osteoarthritis Sleep apnea uses CPAP Type 2 diabetes mellitus with hyperglycemia, with long-term current use of i nsulin ([facility]) 06/29/2016 Urinary calculi Urinary tract infection Goldberg-Ekbom [...] distress, normal lung sounds without wheezing or lifts and cranes inspector ckles Cardiac: heart sound normal, no murmurs [...] of the rejected order with accession number [id number] 174. URINALYSIS MICROSCOPIC ONLY - Abnormal; Notable [...] CDT) Culture Result Three or more bacterial [facility] species isolated from urine Hospital Lab indicates colonization or fecal contamination. Submission of a repeat specimen is suggested. Isolate 1 Mixed ciera [facility] Lab Specimen Urine Performing Organization Address City/State/Zipcode Ph one Number [address] [address] LABORATORIES [facility] Lab [address] [place] [id number] * Urinalysis Microscopic Only (05/26/2019 11:05 PM CDT) Microscopic RBC 6 - 10 (A) 0 - 5 /hpf [facility] U[facility] [place] [facility] Microscopic WBC 21-40 (A) 0 - 5 /hpf [facility] Epithelial Absent Absent [facility] Cells [facility] [place] [facility] Hyaline Cast Large (A) Absent [facility] Bacteria Absent Absent [facility] Mucus Large (A) Absent [facility] [place] [facility] Specimen Urine Performing Organization Address City/[facility] Ph one Number [facility] [address] [place], [place] [id number] [facility] [facility] [address] [place] [address] [facility] * Urinalysis Reflex (05/26/2019 11:05 PM CDT) Appearance, Yellow [facility] Urine [facility] Glucose Urine >=1000 (A) Negative mg/dL [facility] Bilirubin Urine Negative Negative [facility] [place] [facility] Ketones Urine Negative Negative mg/dL [facility] [place] [facility] Specific 1.024 1.001 - 1.030 [facility] [place], UA [facility] Hemoglobin Moderate (A) Negative [facility] Urine [facility] [place] [facility] PH Urine 5.0 5.0 - 8.0 [facility] Protein Urine Negative Negative mg/dL [facility] Qual [facility] [place] [facility] Urobilinogen Negative Negative EU/dL [facility] Urine [facility] [place] [facility] Nitrite Urine NegativeComment: Culture Negative [facility] Ordered [facility] Leukocyte Negative Negative [facility] Esterase [facility] Specimen Urine Performing Organization Address City/[facility] Ph one Number [facility] [address] [place] [address] [place] [facility] [address] [place] [address] [facility] * CBC and Diff (manual diff if necessary) (05/26/2019 10:52 PM CDT) [facility] Signature WBC 9.34 4.00 - 11.00 TH/uL kate eugenia Israels [facility] [place] [facility] RBC 4.11 4.00 - 5.00 MIL/uL [facility] [place] [facility] Hemoglobin 13.3 12.0 - 15.0 g/dL kateeugenia [facility] Hematocrit 41 36 - 45 % kateeugenia Isra[facility] MCV 100 (H) 80 - 99 fL [facility]eugenia Israels [facility] MCH 32 27 - 34 pg k[facility]ugenia Isra[facility] MCHC 32 32 - 36 % kateeugenia Israels [facility] RDW 12.8 11.5 - 14.5 % [facility] [place] [facility] Platelet Count 178 140 - 400 TH/uL [facility] [place] [facility] MPV 10.1 9.4 - 12.3 fL kateeugenia [facility]els [facility] [place] [facility] Nucleated RBCs 0 0 - 0 /100 [facility] [place] [facility] % Neutrophils 58 45 - 78 % [facility] [place] [facility] %Lymphocytes 29 15 - 47 % [facility] %Monocytes 9 0 - 12 % [facility] [place] [facility] %Eosinophils 4 0 - 7 % [facility] [place] [facility] %Basophils 1 0 - 2 % [facility] [place] [facility] % Imm Grans 0 0 - 1 % [facility] # Granulocytes 5.37 1.7 - 6.8 TH/uL [facility] Cedric Is[facility] [place] [facility] # Lymphocytes 2.67 1.0 - 3.3 TH/uL [facility] # Monocytes 0.82 0.2 - 0.9 TH/uL [facility] [place] [facility] # Eosinophils 0.39 0.0 - 0.4 TH/uL [facility] [place] [facility] # Basophils 0.06 0.0 - 0.1 TH/uL [facility] Specimen Blood Narrative Performed At This order is a replacement of the rejected order wit h accession number [facility] - [id number] [facility] [place] [facility] Performing Organization Address City/[facility] Ph one Number [facility] [address] [facility], [place] [phone] [facility] [address] [place] [address] [facility] [place] [facility] [address] [facility] [place] [address], [facility] * Lipase (05/26/2019 10:28 PM CDT) Pathologist [facility] Lipase 338 (H) 23 - 300 IU/L [facility] [place] [facility] Specimen Blood Performing Organization Address City/[facility] one Number [facility] [address] [place] [place], [place] [phone] [facility] [address] [place] [address] [facility] * Comprehensive Metabolic Panel (05/26/2019 10:28 PM CDT) Sodium 139 133 - 147 MEQ/L [facility] [place] [facility] Potassium 4.2 3.5 - 5.3 MEQ/L [facility] Chloride 103 96 - 112 MEQ/L [facility]raele[facility] Carbon Dioxide 26 20 - 32 MEQ/L [facility] [place] Anion Gap 10 5 - 17 [facility] [place] [facility] Calcium 8.9 8.4 - 10.5 mg/dL [facility] Glucose 321 (H) 70 - 100 mg/dL [facility] Protein Total 7.6 6.0 - 8.2 g/dL [facility] Serum [facility] Albumin 3.9 3.5 - 5.0 g/dL [facility] Alkaline 98 42 - 140 IU/L [facility] Phosphatase [facility] Alanine 32 0 - 34 IU/L [facility] Aminotransferas [facility] [place] [facility] Aspartate 39Comment: Specimen is 15 - 46 IU/L [facility] Aminotransferas slightly hemolyzed which may Cedric [place] e elevate the AST result. [facility] Bilirubin Total 0.4 0.2 - 1.3 mg/dL [facility] Blood Urea 15 7 - 26 mg/dL [facility] Nitrogen [facility] Creatinine 0.7 0.4 - 1.1 mg/dL [facility] eGFR Female AA 100 60 - 200 [facility] mL/min/1.73sq [facility] eGFR Female 84 60 - 200 [facility] Non-AA mL/min/1.73sq [facility] Specimen Blood Performing Organization Address City/State/Zipcode Ph one Number [facility] KIKI [address] [facility] [place] [address] [facility] [address] [facility] [place] [address] [facility] * CT Abdomen Pelvis wo contrast [...] ed ited the final report. READING SITE: [facility] Narrative Performed At Patient: ISIAH BENÍTEZ Sex#: Paulina #: [id number] Jose #: [id number] Location: [facility] ED SED-10 Procedure Requested: [id number] CT ABDOM EN PELVIS WO CONTRAST Reason [...] ISIAH BENÍTEZ Sex#: F #: [id number] Jose#: [id number] Location: [facility] SED-10 Procedure Requested: [id number] CT ABDOMEN PELVIS WO CONTRAST Reason for [...] and/or edited the final report. READING SITE: [facility] Organization Address City/State/[facility] Ph one Edgar SIMS documented in this [...] 4 mg Given 4 mg, Intravenous, Once, 05/26/19 at 2201, For 1 dose, Administer over 5 min ; max dose of IVP is 10 mg. Note: Limit does not apply to patients who may be tolerant to opioid therapy or on continuous IV or PO opiate therapy., documented in this encounter"
--- OUTSIDE RECORDS SUMMARY | 2020-03-12 09:10 | XMS REPORT | Encounter Summary ---
Author Author [facility] Organization [facility] Address Unknown Phone Unavailable Care Team Providers Care Sap Pp Consultant Name Role Phone Ebony Sharp MD PCP Reason for Visit * Reason Comments Medication Refill Encounter Details Care Team Description Date Type Department Ebony Sharp MD [address] [facility] [address] [place] [address] [phone] Medication Refill 03/10/2019 Refill [facility] Primar y Care - East [address] [facility] [address] [place], [place] [address] Social History Date Tobacco Use Types Packs/Day [...]
--- OUTSIDE RECORDS SUMMARY | 2020-03-12 09:10 | XMS REPORT | Encounter Summary ---
Author Author [facility] Organization [facility] Address Unknown Phone Unavailable Care Team Providers Care Internal Medicine Specialist Name Role Phone Ebony Sharp MD PCP Encounter Details Care Team Description Date Type Department Macy Davila 03/21/2019 Education [facility] [address] [facility] [address] [place], [place] [address] Social History Date Tobacco Use Types Packs/Day [...] mind and bod y for surgery and oysterman success post op GOAL: 150 min/week. Pt [...]
--- OUTSIDE RECORDS SUMMARY | 2020-03-12 09:10 | XMS REPORT | Encounter Summary ---
Author Author [facility] Organization [facility] Address Unknown Phone Unavailable Care Team Providers Care Auto Service Station Attendant Name Role Phone Ebony Sharp MD PCP Encounter Details Care Team Description Date Type Department Walker Funez MD [address] [facility] [address] [place], [place] [phone] 01/13/2019 Telephone [facility] [address] [facility] [address] [place], [place] [phone] Social History Date Tobacco Use Types Packs/Day [...] BENEFITS: Dwight spoke to Denis with call Ref#[id number]; No prior authori zation is required for CPT code L3908. No Deductible Co-Ins 80-20% OOP Max $5900 Has met $490.00 documented in this encounter Plan of Treatment Not on filedocumented as of this encounter Visit Diagnoses Not on filedocumented in this encounter
--- OUTSIDE RECORDS SUMMARY | 2020-03-12 09:10 | XMS REPORT | Encounter Summary ---
Author Author [facility] Organization [facility] Address Unknown Phone Unavailable Care Team Providers Care C Java Developer Name Role Phone Ebony Sharp MD PCP Encounter Details Care Team Description Date Type Department Twenty [facility] Provider[facility] Clement[facility]lys[facility] 03/09/2019 External [facility] SecureWatersu e Documentation Location Social History Date Tobacco [...] ProviderSaint ClementAlysiaeugenia - 03/09/2019 12:00 AM CDT [facility] [address] [place] [address] OPERATIVE NOTE PATIENT: ISIAH BENÍTEZ PHYSICIAN: Luis [...] anesthesia and transferred to the PACU in st able condition. _ Luis Funez M.D. Electronically Signed - 03/16/2019 09:07 AM SHIRAZ/[id number] DT: 03/09/2019 documented in this encounter Plan of Treatment Not on filedocumented as of this encounter Visit Diagnoses Not on filedocumented in this encounter Additional Health Concerns Last Indicated Resolved Time Infection Onset Date 08/30/2019 08/30/2019 1:09 PM POLICE SURGEON Influenza - Rule Out 08/30/2019 08/31/2019 09/17/2019 8:17 AM POLICE SURGEON RSV 08/31/2019 documented as of this encounter
--- OUTSIDE RECORDS SUMMARY | 2020-03-12 09:10 | XMS REPORT | Encounter Summary ---
Author Author [facility] Organization [facility] Address Unknown Phone Unavailable Care Team Providers Care Hand Umbrella Tipper Name Role Phone Ebony Sharp MD PCP Reason for Visit * Reason Comments Other Encounter Details Care Team Description Date Type Department Ebony Sharp MD [address] [facility] [address] [place], [place] [phone] Other 04/19/2019 Refill [facility] Primar y Care - East [address] [facility] [address] [place], [place] [phone] Social History Date Tobacco Use Types Packs/Day [...]
--- OUTSIDE RECORDS SUMMARY | 2020-03-12 09:10 | XMS REPORT | Encounter Summary ---
Author Author [facility] Organization [facility] Address Unknown Phone Unavailable Care Team Providers Care Regional Truck Driver Name Role Phone Ebony Sharp MD PCP Reason for Visit * Reason Comments Medication Refill Encounter Details Care Team Description Date Type Department Walker Funez MD [address] [facility] [address] [place], [place] [phone] Medication Refill 02/15/2019 Refill [facility] [address] [facility] [address] [place], [place] [phone] Social History Date Tobacco Use Types Packs/Day [...]
--- OUTSIDE RECORDS SUMMARY | 2020-03-12 09:10 | XMS REPORT | Encounter Summary ---
Author Author [facility] Organization [facility] Address Unknown Phone Unavailable Care Team Providers Care Exhibits Manager Name Role Phone Ebony Sharp MD PCP Reason for Visit * Reason Comments Other Encounter Details Care Team Description Date Type Department Ebony Sharp MD [address] [facility] [address] [place], [place] [phone] Other 04/17/2019 Refill [facility] Primar y Care - East [address] [facility] [address] [place], [place] [phone] Social History Date Tobacco Use Types Packs/Day [...]
--- OUTSIDE RECORDS SUMMARY | 2020-03-12 09:10 | XMS REPORT | Encounter Summary ---
Author Author [facility] Organization [facility] Address Unknown Phone Unavailable Care Team Providers Care Feeder Operator Name Role Phone Ebony Sharp MD PCP Encounter Details Care Team Description Date Type Department Max Valentin MD [address] [facility] [address] [place], [place] [phone] 02/13/2019 Documentation [facility] [address] [facility] [address] [place], [place] [address] Social History Date Tobacco Use Types Packs/Day [...]
--- OUTSIDE RECORDS SUMMARY | 2020-03-12 09:10 | XMS REPORT | Encounter Summary ---
Author Author [facility] Organization [facility] Address Unknown Phone Unavailable Care Team Providers Care Border Machine Operator Name Role Phone Ebony Sharp MD PCP Reason for Visit * Reason Comments Other Encounter Details Care Team Description Date Type Department Walker Funez MD [address] [facility] [address] [place] [address] [phone] Other 01/18/2019 Refill [facility] [address] [facility] [address] [place], [place] [phone] Social History Date Tobacco Use Types Packs/Day [...]
--- OUTSIDE RECORDS SUMMARY | 2020-03-12 09:10 | XMS REPORT | Encounter Summary ---
Author Author [facility] Organization [facility] Address Unknown Phone Unavailable Care Team Providers Care Machine Sign Writer Name Role Phone Ebony Sharp MD PCP Reason for Visit * Reason Comments Other Encounter Details Care Team Description Date Type Department Ebony Sharp MD [address] [facility] [address] [place], [place] [phone] Other 02/18/2019 Refill [facility] Primar y Care - East [address] [facility] [address] [place], [place] [phone] Social History Date Tobacco Use Types Packs/Day [...] Infection Onset Date 08/30/2019 08/30/2019 1:09 PM TEST LEAD APPLICATION TESTING Influenza - Rule Out 08/30/2019 08/31/2019 09/17/2019 8:17 AM TEST LEAD APPLICATION TESTING RSV 08/31/2019 documented as of this encounter
--- OUTSIDE RECORDS SUMMARY | 2020-03-12 09:10 | XMS REPORT | Encounter Summary ---
Author Author [facility] Organization [facility] Address Unknown Phone Unavailable Care Team Providers Care Hearing Aid Assistant Name Role Phone Ebony Sharp MD PCP Reason for Visit * Reason Comments Other Encounter Details Care Team Description Date Type Department Ebony Sharp MD [address] [facility] [address] [place], [place] [phone] Other 04/23/2019 Refill [facility] Primar y Care - East [address] [facility] [address] [place], [place] [phone] Social History Date Tobacco Use Types Packs/Day [...]
--- OUTSIDE RECORDS SUMMARY | 2020-03-12 09:10 | XMS REPORT | Encounter Summary ---
Author Author [facility] Organization [facility] Address Unknown Phone Unavailable Care Team Providers Care Safety Instructor Name Role Phone Ebony Sharp MD PCP Encounter Details Care Team Description Date Type Department GiovanniMacy 02/15/2019 Education [facility] [address] [place] [address] Social History Date Tobacco Use Types Packs/Day [...] everyday. Pt reports she plans on joining [employer] with her son in law and [...]
--- OUTSIDE RECORDS SUMMARY | 2020-03-12 09:10 | XMS REPORT | Encounter Summary ---
Author Author [facility] Organization [facility] Address Unknown Phone Unavailable Care Team Providers Care Technical Program Manager Name Role Phone Ebony Sharp MD PCP Reason for Visit * EMG (Routine) Referred By Contact Referred To Contact Status Reason Specialty Diagnoses / Procedures Walker Funez MD [address] [facility] [address] [place] [address] Max Valentin MD [address] [facility] [address] [place] [address] Closed Physical Diagnoses Medicine and Bilateral hand Rehabilitation numbness P rocedures EMG Encounter Details Care Team Description Date Type Department Max Valentin MD [address] [facility] [address] [place] [address] [phone] Carpal tunnel syndrome, bilateral (Prima ry Dx); Bilateral hand pain; Type 2 diabetes mellitus with hyperglycemia, with long-term current use of insulin ([facility]) 02/13/2019 Office Visit [facility] [address] [facility] [address] [place] [phone] Social History Date Tobacco Use Types Packs/Day [...]
--- OUTSIDE RECORDS SUMMARY | 2020-03-12 09:10 | XMS REPORT | Encounter Summary ---
Author Author [facility] Organization [facility] Address Unknown Phone Unavailable Care Team Providers Care Head Bone Grinder Name Role Phone Ebony Sharp MD PCP Reason for Visit * Reason Comments Medication Refill Encounter Details Care Team Description Date Type Department Walker Funez MD [address] [facility] [address] [place], [place] [phone] Medication Refill 03/08/2019 Refill [facility] [address] [facility] [address] [place], [place] [phone] Social History Date Tobacco Use Types Packs/Day [...]
--- OUTSIDE RECORDS SUMMARY | 2020-03-12 09:10 | XMS REPORT | Encounter Summary ---
Author Author [facility] Organization [facility] Address Unknown Phone Unavailable Care Team Providers Care Hot Tar Roofer Name Role Phone Ebony Sharp MD PCP Reason for Visit * Reason Comments Other Encounter Details Care Team Description Date Type Department Ebony Sharp MD [address] [facility] [address] [place], [place] [address] Other 04/28/2019 Refill [facility] Primar y Care - East [address] [facility] [address] [place], [place] [phone] Social History Date Tobacco Use Types Packs/Day [...]
--- OUTSIDE RECORDS SUMMARY | 2020-03-12 09:10 | XMS REPORT | Encounter Summary ---
Author Author [facility] Organization [facility] Address Unknown Phone Unavailable Care Team Providers Care Test Data Developer Name Role Phone Ebony Sharp MD PCP Encounter Details Care Team Description Date Type Department Walker Funez MD [address] [facility] [address] [place], [place] [phone] 02/15/2019 Orders Only [facility] [address] [facility] [address] [place], [place] [address] Social History Date Tobacco Use Types Packs/Day [...]
--- OUTSIDE RECORDS SUMMARY | 2020-03-12 09:10 | XMS REPORT | Encounter Summary ---
Author Author [facility] Organization [facility] Address Unknown Phone Unavailable Care Team Providers Care Cpr Ambulance Driver Name Role Phone Ebony Sharp MD PCP Encounter Details Care Team Description Date Type Department Walker Funez MD [address] [facility] [address] [place], [place] [phone] 03/13/2019 Refill [facility] [address] [facility] [address] [place], [place] [phone] Social History Date Tobacco Use Types Packs/Day [...]
--- OUTSIDE RECORDS SUMMARY | 2020-03-12 09:10 | XMS REPORT | Encounter Summary ---
Author Author [facility] Organization [facility] Address Unknown Phone Unavailable Care Team Providers Care Dynamics Ax Solution Architect Name Role Phone Ebony Sharp MD PCP Encounter Details Care Team Description Date Type Department Santo Hernandez RN 05/11/2019 Orders Only [facility] Primar y Care - East [address] [facility] [address] [place], [place] [phone] Social History Date Tobacco Use Types Packs/Day [...]
--- OUTSIDE RECORDS SUMMARY | 2020-03-12 09:11 | XMS REPORT | Encounter Summary ---
Author Author [facility] Organization [facility] Address Unknown Phone Unavailable Care Team Providers Care Obstetrics Technician Name Role Phone Ebony Sharp MD PCP Reason for Referral * EMG (Routine) Referred By Contact Referred To Contact Status Reason Specialty Diagnoses / Procedures Walker Funez MD [address] [facility] [address] [place] [address] Max Valentin MD [address] [facility] [address] [place] [address] Closed Physical Diagnoses Medicine and Bilateral hand Rehabilitation numbness P rocedures EMG Reason for Visit * Reason Comments Pain Encounter Details Care Team Description Date Type Department Walker Funez MD [address] [facility] [address] [place] [address] [phone] Right wrist pain (Primary Dx); Bilateral hand numbness 01/13/2019 Initial consult [facility] [address] [facility] [address] [place], [place] [id number] Social History Date Tobacco Use Types Packs/Day [...] Funez MD - 01/13/2019 2:30 PM CDT [facility] [address] [facility] [address] [facility] [address] Caren Patten female 1950 Chief Complaint Chief Complaint Patient presents with Right Wrist - Pain HPI Ms. Patten is a pleasant 68 y.o. -year-old female, right-handed, who comes into [facility] for right wrist pain. 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 No real treatment other than [...] ANKLE ARTHRODESIS; Surgeon: Adelaida Olivas MD; [facility] [facility] [place]; Service: Orthopedics; Later ality: Left; REPAIR, INCISIONAL HERNIA, LAPAROSCOPIC, USING MESH N/A 05/25/2018 Procedure: LAPAROSCOPIC INCISIONAL HERNIA REPAIR WITH MESH; Surgeon: Medardo Tate MD; Location: [facility]; Service: General; Laterality: N/A; TONSILLECTOMY [...] NIGHT. E11.9 10 mL 5 insulin syringe (Workstreamer ULTRA-FINE) 0.3 mL 31 gauge x 5/16 [...] documented in this encounter Plan of Treatment Date/Time Name Type Priority Associated Diag noses [...]
--- OUTSIDE RECORDS SUMMARY | 2020-03-12 09:11 | XMS REPORT | Encounter Summary ---
Author Author [facility] Organization [facility] Address Unknown Phone Unavailable Care Team Providers Care Logistics Officer Name Role Phone Ebony Sharp MD PCP Encounter Details Care Team Description Date Type Department Francoise Coelho RD 11/01/2018 Education [facility] [address] [facility] [address] [place], [place] [id number] Social History Date Tobacco Use Types Packs/Day [...] - - Height 43.69 09/13/2018 9:59 AM MATERIAL ASSEMBLER Body Mass Index documented in this encounter [...]
--- OUTSIDE RECORDS SUMMARY | 2020-03-12 09:11 | XMS REPORT | Encounter Summary ---
Author Author [facility] Organization [facility] Address Unknown Phone Unavailable Care Team Providers Care Supervisor Steno Pool Name Role Phone Ebony Sharp MD PCP Reason for Visit * Reason Comments Medication Refill Encounter Details Care Team Description Date Type Department Jennifer Feng RN Medication Refill 11/28/2018 Refill [facility] [address] [facility] [address] [place], [place] [id number] Social History Date Tobacco Use Types Packs/Day [...]
--- OUTSIDE RECORDS SUMMARY | 2020-03-12 09:11 | XMS REPORT | Encounter Summary ---
Author Author [facility] Organization [facility] Address Unknown Phone Unavailable Care Team Providers Care Target Network Analyst Name Role Phone Ebony Sharp MD PCP Reason for Visit * Reason Comments Other Encounter Details Care Team Description Date Type Department Ebony Sharp MD [address] [facility] [address] [place], [place] [id number] Other 10/18/2018 Refill [facility] Primar y Care - East [address] [facility] [address] [place], [place] [phone] Social History Date Tobacco Use Types Packs/Day [...] Infection Onset Date 08/30/2019 08/30/2019 1:09 PM RESPIRATORY CLINICIAN Influenza - Rule Out 08/30/2019 08/31/2019 09/17/2019 8:17 AM RESPIRATORY CLINICIAN RSV 08/31/2019 documented as of this encounter
--- OUTSIDE RECORDS SUMMARY | 2020-03-12 09:11 | XMS REPORT | Encounter Summary ---
Author Author [facility] Organization [facility] Address Unknown Phone Unavailable Care Team Providers Care Family Readiness Support Assistant Name Role Phone Ebony Sharp MD PCP Encounter Details Care Team Description Date Type Department Medardo Tate MD [address] [facility] [address] [place] [address] [phone] 11/25/2018 Documentation [facility] al Specialists [address] [facility] [address] [place], [place] [phone] Social History Date Tobacco Use Types Packs/Day [...]
--- OUTSIDE RECORDS SUMMARY | 2020-03-12 09:11 | XMS REPORT | Encounter Summary ---
Author Author [facility] Organization [facility] Address Unknown Phone Unavailable Care Team Providers Care Steel Welder Name Role Phone Ebony Sharp MD PCP Reason for Referral * Consultation (Routine) Referred By Contact Referred To Contact Status Reason Specialty Diagnoses / Procedures Medardo Tate MD [address] [address] [facility] [address] [place] [address] Closed Specialty Services Pulmonary Diagnoses Required Disease Sleep apnea, unspecified type Preoperative clearance Encounter Details Care Team Description Date Type Department Medardo Tate MD [address] [place] [address] [phone] Sleep apnea, unspecified type (Primary D x); Preoperative clearance 12/30/2018 Orders Only [facility] [address] [place] [phone] Social History Date Tobacco Use Types Packs/Day [...]
--- OUTSIDE RECORDS SUMMARY | 2020-03-12 09:11 | XMS REPORT | Encounter Summary ---
Author Author [facility] Organization [facility] Address Unknown Phone Unavailable Care Team Providers Care Precision Instrument Maker And Repairer Name Role Phone Ebony Sharp MD PCP Reason for Visit * Reason Comments Medication Refill Encounter Details Care Team Description Date Type Department Jennifer Feng RN Medication Refill 10/21/2018 Refill [facility] Prim[facility] [place] [address] [facility] [address] [place], [place] [address] Social History Date Tobacco Use Types Packs/Day [...]
--- OUTSIDE RECORDS SUMMARY | 2020-03-12 09:11 | XMS REPORT | Encounter Summary ---
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
--- OUTSIDE RECORDS SUMMARY | 2020-03-12 09:11 | XMS REPORT | Encounter Summary ---
Author Author [facility] Organization [facility] Address Unknown Phone Unavailable Care Team Providers Care Staff Reporter Name Role Phone Ebony Sharp MD PCP Reason for Referral * Diagnostic Imaging (Routine) Referred By Contact Referred To Contact Status Reason Specialty Diagnoses / Procedures Brooke Polanco MD [address] [facility] [address] [place] [address] Closed Diagnoses Essential hypertension P rocedures Electrocardiogram (ECG) Reason for Visit * Reason Comments Hypertension Encounter Details Care Team Description Date Type Department Brooke Polanco MD [address] [facility] [address] [place] [address] [phone] Essential hypertension (Primary Dx); Type 2 diabetes mellitus with hyperglycemia, 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); Mixed hyperlipidemia; Chronic obstructive pulmonary disease, unspecified COPD type (HCC) 01/13/2019 Office Visit [facility] [address] [facility] [address] [place], [place] [address] Social History Date Tobacco Use Types Packs/Day [...] your healthcare, please sign up for the [facility] at [facility] systemJoin [email or web address] -- you can email your doctors, check results, make ap pointments, pay your medical office bill, and request refills. Enter activation code on your visit summary given at end of your visit or by Clicking Sign Up Now tab and requesting activation code. Please call the Nurse Line at [phone] ([facility] Team). with any questions or concerns. For medication refill needs, please first contact your pharmacy. For any [facility] scheduling questions, please rosalind l . At [facility], high quality patient care is our top [...] Polanco MD - 01/13/2019 12:25 PM CDT [facility] [place] Appointment Date: 01/13/2019 Ebony Sharp MD [address] [facility] [address] [facility] [place] [address] RE: Isiah Benítez : 1950 Visit provider: [...] bleeding 08/08/2016 Allergic rhinitis Anxiety Bronchitis, chronic ([facility]) Cataract 2011, 2012 bilat cataract surgery Chronic pain disorder back, ribs, and ankle. COPD (chronic obstructive pulmonary disease) ([facility]) Depression Draining postoperative wound 08/08/2016 Endometriosis Essential hypertension Fractures [address] in Left ankle MATA (generalized anxiety disorder) 09/24/2015 Hernia of abdominal cavity Mixed hyperlipidemia 09/24/2015 Morbid obesity due to excess calories ([facility]) 07/10/2016 On home oxygen therapy 2L - usually needs if has an exacerbation of COPD, or resp illness SASHA on CPAP Osteoarthritis Sleep apnea uses CPAP Type 2 diabetes mellitus with hyperglycemia, with long-term current use of i nsulin ([facility]) 06/29/2016 Urinary calculi Urinary tract infection Ogldberg-Ekbom syndrome 02/21/2016 Past Surgical History: Procedure Laterality Date ANKLE FRACTURE SURGERY Left 1998 fx in 3 places and w/screws in place APPENDECTOMY CATARACT EXTRACTION W/ INTRAOCULAR LENS IMPLANT Bilateral SECTION, CLASSIC CHOLECYSTECTOMY COLONOSCOPY HYSTERECTOMY OOPHORECTOMY REMOVAL, HARDWARE, FOOT OR ANKLE Left 04/09/2017 Procedure: LEFT ANKLE REMOVAL OF HARDWARE WITH REVISION LEFT ANKLE ARTHRODESIS; Surgeon: Adelaida Olivas MD; [facility] [facility]; Service: Orthopedics; Later ality: Left; REPAIR, INCISIONAL HERNIA, LAPAROSCOPIC, USING MESH N/A 05/25/2018 Procedure: LAPAROSCOPIC INCISIONAL HERNIA REPAIR WITH MESH; Surgeon: Meadrdo Tate MD; Location[facility]; Service: General; Laterality: N/A; TONSILLECTOMY [...] with long-term current use of i nsulin ([facility]) Mixed hyperlipidemia Chronic obstructive pulmonary disease, unspecified COPD type ([facility]) Impression and Plan: 1. Preoperative cardiovascular [...] ECGPR 156 TRACEMASTER Specimen [facility]arrative [facility] [place] Test Date: 2019-01-13 Pat Name: ISIAH JACKELIN Department: [facility] Room: Gender: Female Construction Pit Worker: BRISEYDA : 1950 Requested By: BROOKE POLANCO Order Number: [id number] Reading MD: Brooke Polanco Measurements Intervals [place] Rate: 80 P: 57 ID: [id number] QRS: 55 QRSD: 102 T: 69 QT: 380 QTc: 439 Interpretive Statements SINUS RHYTHM Electronically Signed On 01-13-2019 17:0 0:24 CDT by Brooke Polanco Procedure Note Interface, External Ris In - 01/13/2019 5:01 PM CDT [facility] [place] Test Date: 2019-01-13 Pat Name: ISIAH BENÍTEZ Department: [facility] Room: Gender: Female Construction Pit Worker: BRISEYDA : 1950 Requested By: BROOKE POLANCO Order Number: [id number] Reading MD: Brooke Polanco Measurements Intervals [place] Rate: 80 P: 57 ID: [id number] QRS: 55 QRSD: 102 T: 69 [...]
--- OUTSIDE RECORDS SUMMARY | 2020-03-12 09:11 | XMS REPORT | Encounter Summary ---
Author Author [facility] Organization [facility] Address Unknown Phone Unavailable Care Team Providers Care Cuffer Name Role Phone Ebony Sharp MD PCP Reason for Visit * Reason Comments Other Encounter Details Care Team Description Date Type Department Ebony Sharp MD [address] [facility] [address] [place], [place] [phone] Other 10/21/2018 Refill [facility] Primar y Care - East [address] [facility] [address] [place], [place] [phone] Social History Date Tobacco Use Types Packs/Day [...]
--- OUTSIDE RECORDS SUMMARY | 2020-03-12 09:11 | XMS REPORT | Encounter Summary ---
Author Author [facility] Organization [facility] Address Unknown Phone Unavailable Care Team Providers Care Manager Lab Name Role Phone Ebony Sharp MD PCP Reason for Visit * Reason Comments Other Encounter Details Care Team Description Date Type Department Ebony Sharp MD [address] [facility] [address] [place], [place] [phone] Other 10/23/2018 Refill [facility] Prim[facility] y [facility] - [facility] [address] [facility] [address] [place], [place] [address] Social History Date Tobacco Use Types Packs/Day [...]
--- OUTSIDE RECORDS SUMMARY | 2020-03-12 09:11 | XMS REPORT | Encounter Summary ---
Author Author [facility] Organization [facility] Address Unknown Phone Unavailable Care Team Providers Care Sql Server Developer Name Role Phone Ebony Sharp MD PCP Encounter Details Care Team Description Date Type Department Ebony Sharp MD [address] [facility] [address] [place], [place] [phone] Benign essential HTN; Sweating increase; Hyperthyroidism; Dysuria; Type 2 diabetes mellitus with hyperosmolarity without coma, without long-term current use of insulin (HCC) 01/13/2019 Lab [facility] [phone] Social History Date Tobacco Use Types Packs/Day [...] Address City/State/Zipcode Ph one Number [facility] [address] [address] LABORATORIES * T4 Free (01/13/2019 12:55 PM CDT) T4 Free 1.0 0.8 - 2.2 ng/dL [facility] Specimen Blood Performing Organization Address City/State/Zipcode Ph one Number [facility] [address] [place] [place] [address] [facility] [address] [place] [address], [facility] * Urinalysis Reflex (01/13/2019 12:55 PM CDT) Appearance, Yellow [facility] Glucose Urine >=1000 (A) Negative mg/dL [facility] Bilirubin Urine Small (A) Negative [facility] Ketones Urine Negative Negative mg/dL [facility] Specific 1.023 1.001 - 1.030 [facility] [place], UA [facility] Hemoglobin Negative Negative [facility] PH Urine 5.5 5.0 - 8.0 [facility] Protein Urine Trace (A) Negative mg/dL [facility] Qual [facility] Urobilinogen Negative Negative EU/dL [facility]rine [facility] Nitrite Urine Negative Negative [facility] Leukocyte Negative (A) Negative [facility] Esterase [facility] Specimen Urine Performing Organization Address City/State/Zipcode Ph one Number [facility] [address] [place], [place] [phone] [facility] [address] [place] [address], [place] [phone] [facility] * Thyroid Stimulating Hormone (01/13/2019 12:55 PM CDT) Thyroid 0.07 (L) 0.47 - 4.68 uIU/mL [facility] Stimulating [facility] Hormone [facility] Specimen Blood Performing Organization Address City/State/Zipcode Ph one Number [facility] [address] [place] [address] [facility] [address] [place] [address], [place] [phone] [facility] * Comprehensive Metabolic Panel (01/13/2019 12:55 PM CDT) [facility] Sodium 136 133 - 147 MEQ/L [facility] Potassium 5.4 (H) 3.5 - 5.3 MEQ/L [facility] Chloride 96 96 - 112 MEQ/L [facility] Carbon Dioxide 25 20 - 32 MEQ/L [facility] Anion Gap 15 5 - 17 [facility] Calcium 10.6 (H) 8.4 - 10.5 mg/dL [facility] Glucose 296 (H) 70 - 100 mg/dL [facility] Protein Total 8.3 (H) 6.0 - 8.2 g/dL [facility] Serum [facility] Albumin 4.7 3.5 - 5.0 g/dL [facility] Alkaline 91 42 - 140 IU/L [facility] Phosphatase [facility] Alanine 31 0 - 34 IU/L [facility] Aminotransferas [facility] Aspartate 31 15 - 46 IU/L [facility] Aminotransferas [facility] Bilirubin Total 0.4 0.2 - 1.3 mg/dL [facility] Blood Urea 24 7 - 26 mg/dL [facility] Nitrogen [facility] Creatinine 1.1 0.4 - 1.1 mg/dL [facility] eGFR Female AA 60 60 - 200 [facility] mL/min/1.73sq m [facility] eGFR Female 50 (L) 60 - 200 [facility] Non-AA mL/min/1.73sq m [facility] Specimen Blood Performing Organization Address City/State/Zipcode Ph one Number [facility] [address] [facility] [address] [facility] [address] [facility] [address] [place] [address], [facility] * CBC and Diff (manual diff if necessary) (01/13/2019 12:55 PM CDT) [facility] Signature WBC 12.21 (H) 4.00 - 11.00 TH/uL [facility] RBC 4.76 4.00 - 5.00 MIL/uL [facility] Hemoglobin 16.3 (H) 12.0 - 15.0 g/dL [facility] Hematocrit 47 (H) 36 - 45 % [facility] MCV 99 80 - 99 fL [facility] MCH 34 27 - 34 pg [facility] MCHC 35 32 - 36 % [facility] RDW 13.2 11.5 - 14.5 % [facility] Platelet Count 246 140 - 400 TH/uL [facility]ug[facility] MPV 9.9 9.4 - 12.3 fL [facility] Nucleated RBCs 0 0 - 0 /100 [facility] % Neutrophils 65 45 - 78 % [facility] %Lymphocytes 25 15 - 47 % [facility] %Monocytes 8 0 - 12 % [facility] %Eosinophils 2 0 - 7 % [facility] %Basophils 1 0 - 2 % [facility] # Granulocytes 7.91 (H) 1.7 - 6.8 TH/uL [facility] # Lymphocytes 3.02 1.0 - 3.3 TH/uL [facility] # Monocytes 0.91 (H) 0.2 - 0.9 TH/uL [facility] # Eosinophils 0.23 0.0 - 0.4 TH/uL [facility] # Basophils 0.08 0.0 - 0.1 TH/uL [facility] [place] [facility] Specimen Blood Performing Organization Address City/State/Zipcode Ph one Number [facility] [address] [facility] [place] [address] [facility] [address] [facility] [address], [facility] documented in this encounter Visit Diagnoses Diagnosis Benign essential HTN Sweating increase Generalized hyperhidrosis Hyperthyroidism Thyrotoxicosis without mention of goite r or other cause, without mention of thyrotoxic crisis or storm Dysuria Type 2 diabetes mellitus with hyperosmo larity without coma, without long-term current use of insulin (HCC) documented in this encounter
--- OUTSIDE RECORDS SUMMARY | 2020-03-12 09:11 | XMS REPORT | Encounter Summary ---
Author Author [facility] Organization [facility] Address Unknown Phone Unavailable Care Team Providers Care Well Driller Name Role Phone Ebony Sharp MD PCP Encounter Details Care Team Description Date Type Department Walker Funez MD [address] [facility] [address] [place], [place] [phone] 01/13/2019 Imaging [facility] [address] [facility] [address] [place], [place] [phone] Social History Date Tobacco Use Types Packs/Day [...] as of this encounter Plan of Treatment Date/Time Name Type Priority Associated Diag noses 01/13/2019 2:23 PM CDT XR Wrist min 3 views Imaging Routine Right wri st pain right documented as of this encounter Visit Diagnoses Not on filedocumented in this encounter
--- OUTSIDE RECORDS SUMMARY | 2020-03-12 09:11 | XMS REPORT | Encounter Summary ---
Author Author [facility] Organization [facility] Address Unknown Phone Unavailable Care Team Providers Care Missile Mechanic Name Role Phone Ebony Sharp MD PCP Encounter Details Care Team Description Date Type Department Ebony Sharp MD [address] [facility] [address] [place], [place] [phone] 12/13/2018 Documentation [facility] Primar y [facility] [address] [facility] [address] [place], [place] [phone] Social History Date Tobacco Use Types Packs/Day [...]
--- OUTSIDE RECORDS SUMMARY | 2020-03-12 09:11 | XMS REPORT | Encounter Summary ---
Author Author [facility] Organization [facility] Address Unknown Phone Unavailable Care Team Providers Care Auto Parts Salesperson Name Role Phone Ebony Sharp MD PCP Encounter Details Care Team Description Date Type Department Francoise Coelho, CHRIS 11/29/2018 Education [facility] Specialists [address] [facility] [address] [place], [place] [phone] Social History Date Tobacco Use Types Packs/Day [...] - - Height 43.02 09/13/2018 9:59 AM LOCKET MAKER Body Mass Index documented in this encounter Progress Notes * Keri Gresham - 11/29/2018 9:00 AM CDT ESTABLISHED [...] mention that thi s time. * Francoise Coelho RD - 11/29/2018 9:00 AM CDT 3 month [...]
--- OUTSIDE RECORDS SUMMARY | 2020-03-12 09:11 | XMS REPORT | Encounter Summary ---
Author Author [facility] Organization [facility] Address Unknown Phone Unavailable Care Team Providers Care Cable Cutter And Swager Name Role Phone Ebony Sharp MD PCP Reason for Visit * Reason Comments Follow-up hospital FU Encounter Details Care Team Description Date Type Department Ebony Sharp MD [address] [facility] [address] [place] [address] Benign essential HTN (Primary Dx); Hyperlipidemia, unspecified hyperlipidemia type; Type 2 diabetes mellitus with hyperosmolarity without coma, without long-term current use of insulin (HCC); Sweating increase; Vaginal itching; Hyperthyroidism; Dysuria 12/12/2018 Office Visit [facility] [address] [facility] [address] [place] [address] Social History Date Tobacco Use [...] Medicine) Ebony Sharp MD as PCP - [facility] CECILIO Joaquin MA as [place] The patients demographics, including age, gender, race, [...] Not on filedocumented as of this encounter Results * Hemoglobin A1C (01/13/2019 12:55 PM CDT) Hemoglobin A1C 11.6 (H) 4.0 - 5.6 % [facility] Comment: REGIONAL Non-diabetic 4.0 - LABORATORIES 5.6 % Prediabetes 5.7 - 6.4 % Diabetes >= 6.5 % Specimen Blood Performing Organization Address [facility] one Number [facility] [address] [address] LABORATORIES * T4 Free (01/13/2019 12:55 PM CDT) Pathologist [facility] T4 Free 1.0 0.8 - 2.2 ng/dL [facility] Specimen Blood Performing Organization Address City/[facility] Ph one Number [facility] ALBERT Abdi [facility] [address] [facility] [place] [address] [facility] AL[facility]ERT [facility] [address] [facility] [place] [address], [facility] * Urinalysis Reflex (01/13/2019 12:55 PM CDT) Appearance, Yellow [facility] Urine [facility] Glucose Urine >=1000 (A) Negative mg/dL [facility] Bilirubin Urine Small (A) Negative [facility] Ketones Urine Negative Negative mg/dL [facility] Specific 1.023 1.001 - 1.030 [facility] Walsh, UA [facility] Hemoglobin Negative Negative [facility] Urine [facility]ERT [facility] PH Urine 5.5 5.0 - 8.0 [facility] Protein Urine Trace (A) Negative mg/dL [facility] Qual [facility]ERT [facility] Urobilinogen Negative Negative EU/dL [facility] Urine [facility]ERT [facility] Nitrite Urine Negative Negative [facility] Leukocyte Negative (A) Negative [facility] Esterase [facility]ERT [facility] Specimen Urine Performing Organization Address City/State/Zipcode Ph one Number [facility] [address] [facility] [place] [id number] [facility] [address] [place] [address], [place] [phone] [facility] * Thyroid Stimulating Hormone (01/13/2019 12:55 PM CDT) Thyroid 0.07 (L) 0.47 - 4.68 uIU/mL [facility] Eugenia Stimulating AL[facility]ERT [facility] Hormone [facility] Specimen Blood Performing Organization Address City/[facility] Ph one Number [facility] AGUST[facility] [address] [facility], [place] [id number] [facility] [address] [place] [address], [place] [phone] [facility] * Comprehensive Metabolic Panel (01/13/2019 12:55 PM CDT) Sodium 136 133 - 147 MEQ/L [facility] AL[facility]ERT [facility] Potassium 5.4 (H) 3.5 - 5.3 MEQ/L [facility] AL[facility]ERT [facility] Chloride 96 96 - 112 MEQ/L [facility] AL[facility]ERT [facility] Carbon Dioxide 25 20 - 32 MEQ/L [facility]ERT [facility] Anion Gap 15 5 - 17 [facility]ERT [facility] Calcium 10.6 (H) 8.4 - 10.5 mg/dL [facility] Glucose 296 (H) 70 - 100 mg/dL [facility] ALBERT [facility] Protein Total 8.3 (H) 6.0 - 8.2 g/dL [facility] Serum ALBERT [facility] Albumin 4.7 3.5 - 5.0 g/dL [facility] Alkaline 91 42 - 140 IU/L [facility] Phosphatase [facility] Alanine 31 0 - 34 IU/L [facility] Aminotransferas [facility] e [facility] Aspartate 31 15 - 46 IU/L [facility] Aminotransferas [facility] Bilirubin Total 0.4 0.2 - 1.3 mg/dL [facility] ALBERT [facility] Blood Urea 24 7 - 26 mg/dL [facility] Nitrogen [facility] Creatinine 1.1 0.4 - 1.1 mg/dL [facility] eGFR Female AA 60 60 - 200 [facility] mL/min/1.73sq m ALBERT MARBIN [facility] eGFR Female 50 (L) 60 - 200 [facility] Non-AA mL/min/1.73sq m AL[facility]ERT [facility] Specimen Blood Performing Organization Address City/State/Zipcode Ph one Number [facility] [address] [place] [address] [facility] [address] [facility] [place] [address], [facility] * CBC and Diff (manual diff if necessary) (01/13/2019 12:55 PM CDT) WBC 12.21 (H) 4.00 - 11.00 TH/uL [facility] Eugenia ZAZUETAS [facility] RBC 4.76 4.00 - 5.00 MIL/uL [facility] ALBERT [facility] Hemoglobin 16.3 (H) 12.0 - 15.0 g/dL [facility] ALBERT [facility] Hematocrit 47 (H) 36 - 45 % [facility] AL[facility]ERT [facility] MCV 99 80 - 99 fL [facility] ALBERT [facility] MCH 34 27 - 34 pg [facility] AL[facility]ERT [facility] MCHC 35 32 - 36 % [facility] RDW 13.2 11.5 - 14.5 % [facility] Platelet Count 246 140 - 400 TH/uL [facility] ALBERT [facility] MPV 9.9 9.4 - 12.3 fL [facility] Nucleated RBCs 0 0 - 0 /100 [facility] % Neutrophils 65 45 - 78 % [facility] %Lymphocytes 25 15 - 47 % [facility]ERT [facility] %Monocytes 8 0 - 12 % [facility] %Eosinophils 2 0 - 7 % [facility] %Basophils 1 0 - 2 % [facility] # Granulocytes 7.91 (H) 1.7 - 6.8 TH/uL [facility] ALBERT [facility] # Lymphocytes 3.02 1.0 - 3.3 TH/uL [facility] # Monocytes 0.91 (H) 0.2 - 0.9 TH/uL [facility] # Eosinophils 0.23 0.0 - 0.4 TH/uL [facility] # Basophils 0.08 0.0 - 0.1 TH/uL [facility] Specimen Blood Performing Organization Address City/State/Zipcode Ph one Number [facility] AL[facility]ERT [facility] [address] [facility] [place] [address] [facility]IT[facility] [address] [facility] [place], [place] [address], [facility] documented in this encounter Visit Diagnoses Diagnosis Benign essential HTN Hyperlipidemia, unspecified hyperlipide prasanna type Type 2 diabetes mellitus with hyperosmo larity without coma, without long-term current use of insulin ([facility]) Sweating increase Generalized hyperhidrosis Vaginal itching Pruritus of genital organs Hyperthyroidism 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
--- OUTSIDE RECORDS SUMMARY | 2020-03-12 09:11 | XMS REPORT | Encounter Summary ---
Author Author [facility] Organization [facility] Address Unknown Phone Unavailable Care Team Providers Care Ground Helper Street Railway Name Role Phone Ebony Sharp MD PCP Encounter Details Care Team Description Date Type Department Walker Funez MD [address] [facility] [address] [place], [place] [id number] Bilateral hand pain 01/13/2019 Orders Only [facility] [address] [facility] [address] [place], [place] [id number] Social History Date Tobacco Use Types Packs/Day [...]
--- OUTSIDE RECORDS SUMMARY | 2020-03-12 09:11 | XMS REPORT | Encounter Summary ---
Author Author [facility] Organization [facility] Address Unknown Phone Unavailable Care Team Providers Care Autographer Name Role Phone Ebony Sharp MD PCP Encounter Details Care Team Description Date Type Department Macy Davila 12/27/2018 Education [facility] [address] [facility] [address] [place], [place] [id number] Social History Date Tobacco Use Types Packs/Day [...] AM CDT Pt is here for her 3/4 weigh appt. Pt reports she is walking [...] equipment at home for RT. * Francoise Coelho RD - 12/27/2018 8:30 AM CDT 3 month [...]
--- OUTSIDE RECORDS SUMMARY | 2020-03-12 09:11 | XMS REPORT | Encounter Summary ---
Author Author [facility] Organization [facility] Address Unknown Phone Unavailable Care Team Providers Care Skip Tender Name Role Phone Ebony Sharp MD PCP Encounter Details Care Team Description Date Type Department Katerina Hood RN 01/11/2019 Abstract [facility] [address] [place] [address] Social History Date Tobacco Use Types Packs/Day [...]
--- OUTSIDE RECORDS SUMMARY | 2020-03-12 09:11 | XMS REPORT | Encounter Summary ---
Author Author [facility] Organization [facility] Address Unknown Phone Unavailable Care Team Providers Care Playground Aide Name Role Phone Ebony Sharp MD PCP Reason for Visit * Reason Comments Other Encounter Details Care Team Description Date Type Department Ebony Sharp MD [address] [facility] [address] [place], [place] [id number] Other 10/20/2018 Refill [facility] Prim[facility] y Care - [place] [address] [facility] [address] [place], [place] [id number] Social History Date Tobacco Use Types Packs/Day [...]
--- OUTSIDE RECORDS SUMMARY | 2020-03-12 09:11 | XMS REPORT | Encounter Summary ---
Author Author [facility] Organization [facility] Address Unknown Phone Unavailable Care Team Providers Care Service Order Taker Name Role Phone Ebony Sharp MD PCP Reason for Visit * Reason Comments Pre-visit chart prep Encounter Details Care Team Description Date Type Department Ryan Roth MD [address] [facility] [address] [place] [address] [phone] Pre-visit chart prep 12/27/2018 Documentation [facility] [address] [facility] [address] [place] [address] Social History Date Tobacco Use Types Packs/Day [...]
--- OUTSIDE RECORDS SUMMARY | 2020-03-12 09:12 | XMS REPORT | Encounter Summary ---
Author Author [facility] Organization [facility] Address Unknown Phone Unavailable Care Team Providers Care Medical Unit Secretary Name Role Phone Ebony Sharp MD PCP Reason for Visit * Reason Comments Other Encounter Details Care Team Description Date Type Department Ebony Sharp MD [address] [facility] [address] [place], [place] [phone] Other 08/25/2018 Refill [facility] Prim[facility] y Care - [facility] [address] [facility] [address] [place], [place] [phone] Social History Date Tobacco Use Types Packs/Day [...]
--- OUTSIDE RECORDS SUMMARY | 2020-03-12 09:12 | XMS REPORT | Encounter Summary ---
Author Author [facility] Organization [facility] Address Unknown Phone Unavailable Care Team Providers Care Cartridge Belt Puncher Name Role Phone Ebony Sharp MD PCP Encounter Details Care Team Description Date Type Department Ebony Sharp MD [address] [facility] [address] [place], [place] [id number] 09/15/2018 Documentation [facility] Primar y [facility] - [facility] [address] [facility] [address] [place] [address] Social History Date Tobacco Use [...]
--- OUTSIDE RECORDS SUMMARY | 2020-03-12 09:12 | XMS REPORT | Encounter Summary ---
Author Author [facility] Organization [facility] Address Unknown Phone Unavailable Care Team Providers Care Wheel Truing Machine Tender Name Role Phone Ebony Sharp MD PCP Encounter Details Care Team Description Date Type Department Ebony Sharp MD [address] [facility] [address] [place], [place] [phone] 09/27/2018 Documentation [facility] Primar y [facility] - [facility] [address] [facility] [address] [place], [place] [address] Social History Date Tobacco Use Types Packs/Day [...]
--- OUTSIDE RECORDS SUMMARY | 2020-03-12 09:12 | XMS REPORT | Encounter Summary ---
Author Author [facility] Organization [facility] Address Unknown Phone Unavailable Care Team Providers Care Health Care Analyst Name Role Phone Ebony Sharp MD PCP Reason for Visit * Reason Comments Other Encounter Details Care Team Description Date Type Department Ebony Sharp MD [address] [facility] [address] [place], [place] [phone] Other 06/20/2018 Refill [facility] Prim[facility] y Care - [place] [address] [facility] [address] [place], [place] [phone] Social History Date Tobacco Use Types Packs/Day [...]
--- OUTSIDE RECORDS SUMMARY | 2020-03-12 09:12 | XMS REPORT | Encounter Summary ---
Author Author [facility] Organization [facility] Address Unknown Phone Unavailable Care Team Providers Care Paediatrician Name Role Phone Ebony Sharp MD PCP Reason for Visit * Reason Comments Other Encounter Details Care Team Description Date Type Department Ebnoy Sharp MD [address] [facility] [address] [place], [place] [phone] Other 08/30/2018 Refill [facility] Prim[facility] y Care - [facility] [address] [facility] [address] [place], [place] [address] Social History Date Tobacco Use Types Packs/Day [...]
--- OUTSIDE RECORDS SUMMARY | 2020-03-12 09:12 | XMS REPORT | Encounter Summary ---
Author Author [facility] Organization [facility] Address Unknown Phone Unavailable Care Team Providers Care Dielectric Press Operator Name Role Phone Ebony Sharp MD PCP Reason for Referral * Diagnostic Imaging (Routine) Referred By Contact Referred To Contact Status Reason Specialty Diagnoses / Procedures Ebony Sharp MD [address] [facility] [address] [place] [address] Sle Mammo [address] [facility] [place] [place] [address] Canceled Radiology Diagnoses Healthcare maintenance P rocedures MA Mammogram screening w CAD bilat * Diagnostic Imaging (Routine) Referred By Contact Referred To Contact Status Reason Specialty Diagnoses / Procedures Ebony Sharp MD [address] [facility] [address] [place] [address] Sle Slmg Ls Dexa [address] [place] [address] Closed Radiology Diagnoses Healthcare maintenance P rocedures DEXA Bone Density Hip Pelvis Spine Reason for Visit * Reason Comments Follow-up 6 months Encounter Details Care Team Description Date Type Department Ebony Sharp MD [address] [facility] [address] [place] [address] [phone] Chronic obstructive pulmonary disease, u nspecified COPD type (HCC) (Primary Dx); Hyperlipidemia, unspecified hyperlipidemia type; Benign essential HTN; AMTA (generalized anxiety disorder); Type 2 diabetes mellitus with hyperglycemia, 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); Morbid obesity due to excess calories (HCC); Healthcare maintenance; Hair loss; Acne vulgaris; Hyperthyroidism 09/12/2018 Office Visit [facility] [address] [facility] [address] [place] [address] Social History Date Tobacco Use Types Packs/Day [...] Comments Vital Sign 150/80 09/12/2018 2:14 PM PANEL EDGE PAINTER Blood Pressure 77 09/12/2018 2:14 PM PANEL EDGE PAINTER Pulse - - Temperature - - Respiratory Rate 92% 09/12/2018 2:14 PM PANEL EDGE PAINTER Oxygen Saturation - - Inhaled Oxygen Concentration 106.6 kg (235 lb) 09/12/2018 2:14 PM PANEL EDGE PAINTER Weight 156.2 cm (5' 1.5") 09/12/2018 2:14 PM PANEL EDGE PAINTER Height 43.68 09/12/2018 2:14 PM PANEL EDGE PAINTER Body Mass Index documented in this encounter Progress Notes * Ebony Sharp MD - 09/12/2018 2:30 PM PANEL EDGE PAINTER CC: Follow-up (6 months) HPI : Caren [...] with long-term current use of insul in ([facility]) - Hemoglobin A1C; Future - Microalbumin Random; Future - Comprehensive Metabolic Panel; Future Morbid obesity due to excess calories ([facility]) Healthcare maintenance - DEXA Bone [...] a possible disqualifying factor. Ebony Sharp MD L EDGE PAINTER documented in this encounter Plan of Treatment Order Schedule Name Type Priority Associated Diag noses 1 Occurrences starting 09/12/2018 until 11/08/2019 MA Mammogram screening w Imaging Routine Healt hcare maintenance CAD bilat documented as of this encounter Procedures Comments Procedure Name Priority Date/Time Associated Diag nosis DEXA BONE DENSITY HIP Routine 09/12/2018 [facility] re maintenance PELVIS SPINE 3:16 PM PANEL EDGE PAINTER documented in this encounter Results * Comprehensive Metabolic Panel (09/12/2018 3:22 PM PANEL EDGE PAINTER) Sodium 139 133 - 147 MEQ/L [facility] Potassium 4.6 3.5 - 5.3 MEQ/L [facility] Chloride 99 96 - 112 MEQ/L [facility] Carbon Dioxide 34 (H) 20 - 32 MEQ/L [facility] Anion Gap 6 5 - 17 [facility] Calcium 9.9 8.4 - 10.5 mg/dL [facility] Glucose 253 (H) 70 - 100 mg/dL [facility] Protein Total 7.3 6.0 - 8.2 g/dL [facility] Serum [facility] Albumin 4.0 3.5 - 5.0 g/dL [facility] Alkaline 102 42 - 140 IU/L [facility] Phosphatase [facility] Alanine 47 (H)Comment: ALT reference 0 - 34 IU/L S [facility] Aminotransferas range changed on 03-01-2018 REGIONAL e LABORATORIES Aspartate 45 15 - 46 IU/L [facility] Aminotransferas [facility] Bilirubin Total 0.2 0.2 - 1.3 mg/dL [facility] Blood Urea 16 7 - 26 mg/dL [facility] Nitrogen [facility] Creatinine 0.8 0.4 - 1.1 mg/dL [facility] eGFR Female AA 86 60 - 200 [facility] Comment: REGIONAL Chronic Kidney Disease less LABORATORIES than 60 mL/min/1.73 sq.m Kidney failure less than 15 mL/min/1.73 sq.m eGFR Female 72 60 - 200 [facility] Non-AA Comment: REGIONAL Chronic Kidney Disease less LABORATORIES than 60 mL/min/1.73 sq.m Kidney failure less than 15 mL/min/1.73 sq.m Specimen Blood Performing Organization Address [facility] one Number [address] [phone] LABORATORIES * T4 Free (09/12/2018 3:22 PM PANEL EDGE PAINTER) T4 Free 1.1 0.8 - 2.2 ng/dL [facility] Specimen Blood Performing Organization Address [facility] one Number [address] [phone] LABORATORIES * Thyroid Stimulating Hormone (09/12/2018 3:22 PM PANEL EDGE PAINTER) Thyroid 0.04 (L) 0.47 - 4.68 uIU/mL [facility] Hormone LABORATORIES Specimen Blood Performing Organization Address [facility] one Number [address] [address] LABORATORIES * Microalbumin Random (09/12/2018 3:22 PM PANEL EDGE PAINTER) Creatinine 320.3 mg/dL [facility] Urine Random [facility] LAB[facility]ATORIES Microalbumin 12.10 mg/dL [facility] mg/dl [facility]IES Microalbumin/Cr 37.78 (H) 0.00 - 30.00 ug/mg [facility] [place] eatinine Ratio [facility] LABORATORIES Specimen Urine Performing Organization Address [facility] one Number [facility] [address] [address] LABORATORIES * Hemoglobin A1C (09/12/2018 3:22 PM PANEL EDGE PAINTER) Hemoglobin A1C 11.6 (H) 4.0 - 5.6 % [facility] Comment: REGIONAL Non-diabetic 4.0 - LABORATORIES 5.6 % Prediabetes 5.7 - 6.4 % Diabetes >= 6.5 % Specimen Blood Performing Organization Address [facility] Ph one Number [facility] [address] [address] LABORATORIES * DEXA Bone Density Hip Pelvis Spine (09/12/2018 3:16 PM PANEL EDGE PAINTER) Specimen Narrative Performed At This result has an attachment that is n ot available. Performing Organization Address [facility] one [facility] documented in this encounter Visit Diagnoses Diagnosis Chronic obstructive pulmonary disease, unspecified COPD type (HCC) Hyperlipidemia, unspecified hyperlipide prasanna type Benign essential HTN MATA (generalized anxiety disorder) Generalized anxiety disorder Type 2 diabetes mellitus with hyperglyc emia, with long-term current use of insulin ([facility]) Morbid obesity due to excess calories ( [facility]) Healthcare maintenance Hair loss Unspecified alopecia Acne vulgaris Other acne Hyperthyroidism Thyrotoxicosis without mention of goite r or other cause, without mention of thyrotoxic crisis or storm documented in this encounter
--- OUTSIDE RECORDS SUMMARY | 2020-03-12 09:12 | XMS REPORT | Encounter Summary ---
Author Author [facility] Organization [facility] Address Unknown Phone Unavailable Care Team Providers Care Environmental Specialist Name Role Phone Ebony Sharp MD PCP Reason for Visit * Reason Comments Other Encounter Details Care Team Description Date Type Department Ebony Sharp MD [address] [facility] [address] [place], [place] [phone] Other 06/21/2018 Refill [facility] Primar y Care - East [address] [facility] [employer] [facility] [address] [place], [place] [phone] Social History Date Tobacco Use Types Packs/Day [...]
--- OUTSIDE RECORDS SUMMARY | 2020-03-12 09:12 | XMS REPORT | Encounter Summary ---
Author Author [facility] Organization [facility] Address Unknown Phone Unavailable Care Team Providers Care Industrial Electrician Journeyman Name Role Phone Ebony Sharp MD PCP Encounter Details Care Team Description Date Type Department Ebony Sharp MD [address] [facility] [address] [place], [place] [phone] 08/01/2018 Telephone [facility] [address] [facility] [address] [place] [address] Social History Date Tobacco Use [...] Sheryl Joaquin MA - 08/01/2018 9:05 AM PAPER STRIPPER Called pharmacy R STRIPPER documented in this encounter Plan of Treatment Not on filedocumented as of this encounter Visit Diagnoses Not on filedocumented in this encounter
--- OUTSIDE RECORDS SUMMARY | 2020-03-12 09:12 | XMS REPORT | Encounter Summary ---
Author Author [facility] Organization [facility] Address Unknown Phone Unavailable Care Team Providers Care Crate Builder Name Role Phone Ebony Sharp MD PCP Reason for Visit * Reason Comments Other Encounter Details Care Team Description Date Type Department Ebony Sharp MD [address] [facility] [address] [place], [place] [phone] Other 07/17/2018 Refill [facility] Primar y Care - East [address] [facility] [address] [place], [place] [phone] Social History Date Tobacco Use Types Packs/Day [...] Infection Onset Date 08/30/2019 08/30/2019 1:09 PM SENIOR SAS PROGRAMMER Influenza - Rule Out 08/30/2019 08/31/2019 09/17/2019 8:17 AM SENIOR SAS PROGRAMMER RSV 08/31/2019 documented as of this encounter
--- OUTSIDE RECORDS SUMMARY | 2020-03-12 09:12 | XMS REPORT | Encounter Summary ---
Author Author [facility] Organization [facility] Address Unknown Phone Unavailable Care Team Providers Care Wood Flooring Specialist Name Role Phone Ebony Sharp MD PCP Reason for Visit * Diagnostic Imaging (Routine) Referred By Contact Referred To Contact Status Reason Specialty Diagnoses / Procedures Ebony Sharp MD [address] [address] [facility] Dexa [address] [place] [address] Closed Radiology Diagnoses Healthcare maintenance P rocedures DEXA Bone Density Hip Pelvis Spine Encounter Details Care Team Description Date Type Department Ebony Sharp MD [address] [place] [phone] 09/12/2018 Imaging [facility] Primar y Care Appointment - [place] [address] [place], [place] [phone] Social History Date Tobacco Use Types Packs/Day [...] Healthca re maintenance PELVIS SPINE 3:16 PM ELECTRONIC PUBLISHING SPECIALIST documented in this encounter Results * DEXA Bone Density Hip Pelvis Spine (09/12/2018 3:16 PM ELECTRONIC PUBLISHING SPECIALIST) Specimen Narrative Performed At This result has an attachment that is n ot available. Performing Organization Address City/State/Zipcode Ph one Number LEVI documented in this encounter Visit Diagnoses Not on filedocumented in this encounter
--- OUTSIDE RECORDS SUMMARY | 2020-03-12 09:12 | XMS REPORT | Encounter Summary ---
Author Author [facility] Organization [facility] Address Unknown Phone Unavailable Care Team Providers Care Order Clerk Name Role Phone Ebony Sharp MD PCP Reason for Visit * Reason Comments Chest pain Patient presents via [facility] wi th c/o CP since approx 06. Pt states its left sided and radiates to back. Pt has IV a ccess and was administered 50 mcg fent, 0.4 nitro sl. Encounter Details Care Team Description Date Type Department Chava Kelly MD [address] [facility] [place], [place] [phone] Acute chest pain (Primary Dx) 09/13/2018 Emergency [facility] [address] [place], [place] [phone] Social History Date Tobacco Use Types Packs/Day [...] Comments Vital Sign 138/85 09/13/2018 2:01 PM SHOPPER MARKETING MANAGER Blood Pressure 76 09/13/2018 2:54 PM SHOPPER MARKETING MANAGER Pulse 36.7 C (98.1 F) 09/13/2018 9:59 AM SHOPPER MARKETING MANAGER Temperature 16 09/13/2018 2:54 PM SHOPPER MARKETING MANAGER Respiratory Rate 91% 09/13/2018 2:54 PM SHOPPER MARKETING MANAGER 91% RA, PATIENT HAS PRN 02 AT HOME PLACVE ON O2 WHEELCHAIIR FOR LOBBY TO WAIT DR KELLY AND CHARGE INFORMED. PATIENT NON DISTRESS NO SOA COMPLAINTS Oxygen Saturation - - Inhaled Oxygen Concentration 106.1 kg (234 lb) 09/13/2018 9:59 AM SHOPPER MARKETING MANAGER Weight 152.4 cm (5') 09/13/2018 9:59 AM SHOPPER MARKETING MANAGER Height 45.7 09/13/2018 9:59 AM SHOPPER MARKETING MANAGER Body Mass Index documented in this encounter Discharge Instructions * Attachments The following attachments cannot be sent through Care Everywhere.* CHEST PAIN, NONCARDIAC (GREENLANDIC) documented in this encounter Medications at Time [...] Kayley Samayoa RN - 09/13/2018 2:24 PM SHOPPER MARKETING MANAGER Patient calling family for a ride. Came in by ems PER MARKETING MANAGER * Chava Kelly MD - 09/13/2018 10:25 AM SHOPPER MARKETING MANAGER 09/13/2018 [facility] History Chief Complaint Patient presents with Chest pain Patient presents via [facility] with c/o CP since approx 0630. Pt states its left juadh ed and radiates to back. Pt has [...] ANKLE ARTHRODESIS; Surgeon: Adelaida Olivas MD; [place] [facility] [place]; Service: Orthopedics; Later ality: Left; REPAIR, INCISIONAL HERNIA, LAPAROSCOPIC, USING MESH N/A 05/25/2018 Procedure: LAPAROSCOPIC INCISIONAL HERNIA REPAIR WITH MESH; Surgeon: Medardo Tate MD; Location: [facility] [place]; Service: General; Laterality: N/A; TONSILLECTOMY [...] or atelectasis. No focal consolidation. READING SITE: [facility] Ebony Sharp MD [address] [facility] [address] [facility] [place] [place] [address] ED Clinical Impression 1. Acute chest pain Patient ED Dispo ED Disposition Discharge Chava Kelly MD 09/13/18 1656 PER MARKETING MANAGER documented in this encounter Plan of Treatment Not on filedocumented as of this encounter Procedures Comments Procedure Name Priority Date/Time Associated Diag nosis CT ANGIO CHEST STAT 09/13/2018 1:19 PM SHOPPER MARKETING MANAGER TROPONIN STAT 09/13/2018 1:16 PM SHOPPER MARKETING MANAGER TROPONIN STAT 09/13/2018 10:45 AM SHOPPER MARKETING MANAGER LIPASE STAT 09/13/2018 10:45 AM SHOPPER MARKETING MANAGER COMPREHENSIVE METABOLIC STAT 09/13/2018 PANEL 10:45 AM SHOPPER MARKETING MANAGER CBC AND DIFF (MANUAL DIFF STAT 09/13/2018 IF NECESSARY) 10:45 AM SHOPPER MARKETING MANAGER XR CHEST SINGLE VIEW STAT 09/13/2018 FRONTAL 10:35 AM SHOPPER MARKETING MANAGER ECG STAT 09/13/2018 10:09 AM SHOPPER MARKETING MANAGER documented in this encounter Results * CT Angio Chest (09/13/2018 1:19 PM SHOPPER MARKETING MANAGER) Specimen Impressions Performed At No acute findings. No pulmonary embolus. No rib abnor mality seen. LEVI Narrative Performed At Patient: ISIAH BENÍTEZ Sex#: F # 1950 Jose#: [id number] Location: [facility] Procedure Requested: [id number] CT ANGIO CHEST Reason for Exam: severe left sided ri b pain Exam Ordered: 09/13/2018 11 15 Exam Date/Time: 09/13/2018 131 9 Begin exam date/time: 09/13/[address] ANGIO CHEST READING SITE: [facility] INDICATION: severe left sided rib pain. [...] Rad Results In - 09/13/2018 1:41 PM SHOPPER MARKETING MANAGER Patient: ISIAH BENÍTEZ Sex#: Paulina # 1950 Jose#: [id number] Location: [facility] SED-27 Procedure Requested: [id number] CT ANGIO CHEST Reason for Exam: severe left sided rib pain Exam Ordered: 09/13/2018 1115 Exam Date/Time: 09/13/2018 1319 Begin exam date/time: 09/13/[address] ANGIO CHEST READING SITE: [facility] INDICATION: severe left sided rib pain. [...] No rib abnormality seen. Performing Organization Address [facility] one Number LEVI * Troponin (09/13/2018 1:16 PM SHOPPER MARKETING MANAGER) Only the most recent of 2 results within the time period is included. Pathologist [facility] [place] Troponin <0.01 0.00 - 0.03 ng/mL [facility] Comment: [facility] Troponin Value [facility] Interpretation 0.00 - 0.03 Healthy 0.04 - 0.12 Increased Cardiac Risk >0.12 Myocardial Infarction Troponin may not become elevated until 6 to 8 hours after onset of symptoms. Specimen Blood Performing Organization Address [facility] one Number [facility] [address] [place] [address] [facility] [address] [place] [address], [place] [phone] [facility] * Lipase (09/13/2018 10:45 AM SHOPPER MARKETING MANAGER) Pathologist [facility] [place] Lipase 50 23 - 300 IU/L [facility] Specimen Blood Performing Organization Address [facility] one Number [facility] [address] [place] [address] [facility] [address] [place] [address], [place] [phone] [facility] * Comprehensive Metabolic Panel (09/13/2018 10:45 AM SHOPPER MARKETING MANAGER) Pathologist [facility] [place] Sodium 138 133 - 147 MEQ/L [facility] Potassium 4.2 3.5 - 5.3 MEQ/L [facility] Chloride 101 96 - 112 MEQ/L [facility] Carbon Dioxide 28 20 - 32 MEQ/L [facility] Anion Gap 9 5 - 17 [facility] Calcium 9.0 8.4 - 10.5 mg/dL [facility] Glucose 282 (H) 70 - 100 mg/dL [facility] Protein Total 7.4 6.0 - 8.2 g/dL [facility] Serum [facility] Albumin 3.9 3.5 - 5.0 g/dL [facility] Alkaline 89 42 - 140 IU/L [facility] Phosphatase [facility] Alanine 45 (H)Comment: ALT reference 0 - 34 IU/L [facility] Aminotransferas range changed on 03-01-2018 [facility] Aspartate 46 15 - 46 IU/L [facility] Aminotransferas [facility] e [facility] Bilirubin Total 0.4 0.2 - 1.3 mg/dL [facility] Blood Urea 11 7 - 26 mg/dL [facility] Nitrogen [facility] Creatinine 0.6 0.4 - 1.1 mg/dL [facility] eGFR Female AA 120 60 - 200 [facility] Comment: [facility] Chronic Kidney Disease less [facility] than 60 mL/min/1.73 sq.m Kidney failure less than 15 mL/min/1.73 sq.m eGFR Female 100 60 - 200 [facility] Non-AA Comment: [facility] Chronic Kidney Disease less [facility] than 60 mL/min/1.73 sq.m Kidney failure less than 15 mL/min/1.73 sq.m Specimen Blood Performing Organization Address City/State/Zipcode Ph one Number [facility] [address] [facility] [place] [address] [facility] [address] [place] [address], [place] [phone] [facility] * CBC and Diff (manual diff if necessary) (09/13/2018 10:45 AM SHOPPER MARKETING MANAGER) WBC 8.11 4.00 - 11.00 TH/uL [facility] RBC 4.27 4.00 - 5.00 MIL/uL [facility] Hemoglobin 14.1 12.0 - 15.0 g/dL [facility] Hematocrit 41 36 - 45 % [facility] MCV 97 80 - 99 fL [facility] MCH 33 27 - 34 pg [facility] MCHC 34 32 - 36 % [facility] RDW 13.1 9.0 - 14.5 % [facility] Platelet Count 171 140 - 400 TH/uL [facility] MPV 10.2 9.4 - 12.3 fL [facility] % Neutrophils 66 45 - 78 % [facility] %Lymphocytes 23 15 - 47 % [facility] %Monocytes 7 0 - 12 % [facility] %Eosinophils 4 0 - 7 % [facility] %Basophils 1 0 - 2 % [facility] # Granulocytes 5.32 1.7 - 6.8 TH/uL [facility] # Lymphocytes 1.87 1.0 - 3.3 TH/uL [facility] # Monocytes 0.58 0.2 - 0.9 TH/uL [facility] # Eosinophils 0.29 0.0 - 0.4 TH/uL [facility] # Basophils 0.05 0.0 - 0.1 TH/uL [facility] Specimen Blood Performing Organization Address City/State/Zipcode Ph one Number [facility] [address] [facility] [place] [address] [facility] [address] [facility] [place] [address], [facility] * XR Chest single view frontal (09/13/2018 10:35 AM SHOPPER MARKETING MANAGER) Specimen Impressions Performed At Bandlike opacity in the left midlung zone possibly M CKESSON reflecting scarring or atelectasis. No focal consolidation. READING SITE: [facility] Narrative Performed At Patient: ISIAH BENÍTEZ Sex#: F # 1950 Jose#: [id number] Location: [facility] ED SED- Procedure Requested: [id number] XR CHEST SINGLE VIEW FRONTAL Reason for [...] Rad Results In - 09/13/2018 11:06 AM SHOPPER MARKETING MANAGER Patient: ISIAH BENÍTEZ Sex#: F # 1950 Jose#: [id number] Location[place] [facility] [place] SED- Procedure Requested: [id number] XR CHEST SINGLE VIEW FRONTAL Reason for [...] or atelectasis. No focal consolidation. READING SITE: [facility] Performing Organization Address [facility] one Number LEVI * Electrocardiogram (ECG) (09/13/2018 10:09 AM SHOPPER MARKETING MANAGER) QRSd 104 TRACEMASTER QT 412 TRACEMASTER QTC 448 TRACEMASTER ECGHR 71 TRACEMASTER ECGPR 152 TRACEMASTER Specimen Narrative Performed At [facility] Test Date: 2018-09-13 Pat Name: ISIAH [facility] Department: ERS Room: SED Gender: Female Heel Seat Fitter: [id number] : 1950 Requested By: CHAVA KELLY Order Number: [id number] Reading MD: Measurements Intervals [place] Rate: 71 P: 46 ID: [id number] QRS: 49 QRSD: 104 T: 56 QT: 412 QTc: 448 Interpretive Statements SINUS RHYTHM Procedure Note Interface, External Ris In - 09/13/2018 4:34 PM SHOPPER MARKETING MANAGER [facility] ED Test Date: 2018-09-13 Pat Name: ISIAH BENÍTEZ Department: ERS Room: SED Gender: Female Heel Seat Fitter: [id number] : 1950 Requested By: CHAVA KELLY Order Number: [id number] Reading MD: Measurements Intervals [place] Rate: 71 P: 46 ID: [id number] QRS: 49 QRSD: 104 T: 56 QT: 412 QTc: 448 Interpretive Statements SINUS RHYTHM Performing Organization Address [facility] one Number TRACEMASTER documented in this encounter Visit Diagnoses Diagnosis Acute chest pain Unspecified chest pain documented in this encounter Administered Medications Action Date Dose Rate Site Medication Order MAR Action 09/13/2018 10:43 AM SHOPPER MARKETING MANAGER 50 mcg fentaNYL (SUBLIMAZE) injection 50 mcg Given 50 mcg, Intravenous, Once, e 09/13/18 at 1027, For 1 dose, Administer over 2 minutes; max dose for IVP is 2 mcg/kg. Note: Limit does not apply to patients who may be tolerant to opioid therapy o r on continuous IV or PO opiate therapy., 09/13/2018 1:17 PM SHOPPER MARKETING MANAGER 77 mL iohexol (OMNIPAQUE) 350 mg iodine/mL Given injection 77 mL 77 mL, Intravenous, Once in imaging, contrast, Starting Wed09/13/18 at 1316, For 1 dose 09/13/2018 11:23 AM SHOPPER MARKETING MANAGER 15 mg ketorolac (TORADOL) injection 15 mg Given 15 mg, Intravenous, Once, Wed09/13/18 a t 1114, For 1 dose 09/13/2018 1:26 PM SHOPPER MARKETING MANAGER 2 tablets oxyCODONE-acetaminophen (PERCOCET) 5-325 Given mg 2 tablet 2 tablet, Oral, Once, Wed09/13/18 at 1320, For 1 dose, Do not exceed 4 GM/DA Y of acetaminophen. If 65 or older do no t exceed 3 GM/DAY. If chronic alcoholic d o not exceed 2 GM/DAY., documented in this encounter"
--- OUTSIDE RECORDS SUMMARY | 2020-03-12 09:12 | XMS REPORT | Encounter Summary ---
Author Author [facility] Organization [facility] Address Unknown Phone Unavailable Care Team Providers Care Test Fixture Assembler Name Role Phone Ebony Sharp MD PCP Reason for Visit * Reason Comments Pre-op Exam Bypass consult Encounter Details Care Team Description Date Type Department Medardo Tate MD [address] [facility] [address] [place] [address] Morbid obesity due to excess calories (H CC) (Primary Dx); Type 2 diabetes mellitus with hyperglycemia, 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); Hyperlipidemia, unspecified hyperlipidemia type; Benign essential HTN; SASHA on CPAP 09/06/2018 Initial consult [facility] [address] [facility] [address] [place] [address] Social History Date Tobacco Use [...] Comments Vital Sign 166/98 09/06/2018 1:44 PM NUCLEAR REACTOR OPERATOR Blood Pressure 76 09/06/2018 1:44 PM NUCLEAR REACTOR OPERATOR Pulse 36.9 C (98.4 F) 09/06/2018 1:44 PM NUCLEAR REACTOR OPERATOR Temperature - - Respiratory Rate - - Oxygen Saturation - - Inhaled Oxygen Concentration 106.6 kg (235 lb) 09/06/2018 1:44 PM NUCLEAR REACTOR OPERATOR Weight 156.2 cm (5' 1.5") 09/06/2018 1:44 PM NUCLEAR REACTOR OPERATOR Height 43.68 09/06/2018 1:44 PM NUCLEAR REACTOR OPERATOR Body Mass Index documented in this encounter Progress Notes * Medardo Tate MD - 09/06/2018 2:00 PM NUCLEAR REACTOR OPERATOR [facility] Office Visit Patient: Caren Patten is a 68 y.o. female 1950 CSN: [id number] PCP: Ebony Sharp MD Referring physician: No [...] basis with recommendations from our ex ercise data typist HPI: Caren Patten is a 68 y.o. female who is being seen in consultation for [facility] surgery. She is known to me from a recent incisional hernia repair with mesh 3 months ago. Body mass index is 43.68 kg/m. Comorbidities are listed above. T he patient has tried multiple diets, commercial and other, without termination clerk suc cess, and would like to be [...] ARTHRODESIS; Surgeon: Adelaida Olivas MD; Location: [facility] [place]; Service: Orthopedics; Later ality: Left; REPAIR, INCISIONAL HERNIA, LAPAROSCOPIC, USING MESH N/A 05/25/2018 Procedure: LAPAROSCOPIC INCISIONAL HERNIA REPAIR WITH MESH; Surgeon: Medardo Tate MD; Location: [facility] Main [facility]; Service: General; Laterality: N/A; TONSILLECTOMY [...] signed by: Medardo Tate MD, FACS 09/06/18 EAR REACTOR OPERATOR documented in this encounter Plan of Treatment Not on filedocumented as of this encounter Visit Diagnoses Diagnosis Morbid obesity due to excess calories ( HCC) Type 2 diabetes mellitus with hyperglyc emia, 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) Hyperlipidemia, unspecified hyperlipide prasanna type Benign essential HTN SASHA on CPAP documented in this encounter
--- OUTSIDE RECORDS SUMMARY | 2020-03-12 09:12 | XMS REPORT | Encounter Summary ---
Author Author [facility] Organization [facility] Address Unknown Phone Unavailable Care Team Providers Care Filenet Developer Name Role Phone Ebony Sharp MD PCP Encounter Details Care Team Description Date Type Department Medardo Tate MD [address] [facility] [address] [place] [address] [phone] 09/06/2018 Documentation [facility] [address] [facility] [address] [place], [place] [phone] Social History Date Tobacco Use Types Packs/Day [...]
--- OUTSIDE RECORDS SUMMARY | 2020-03-12 09:12 | XMS REPORT | Encounter Summary ---
Author Author [facility] Organization [facility] Address Unknown Phone Unavailable Care Team Providers Care Field Education Director Name Role Phone Ebony Sharp MD PCP Reason for Visit * Reason Comments Other Encounter Details Care Team Description Date Type Department Ebony Sharp MD [address] [facility] [address] [place], [place] [phone] Other 07/28/2018 Refill [facility] Primar y Care - East [address] [facility] [address] [place], [place] [id number] Social History Date Tobacco Use Types Packs/Day [...] Infection Onset Date 08/30/2019 08/30/2019 1:09 PM WAREHOUSE DISTRIBUTION ASSOCIATE Influenza - Rule Out 08/30/2019 08/31/2019 09/17/2019 8:17 AM WAREHOUSE DISTRIBUTION ASSOCIATE RSV 08/31/2019 documented as of this encounter
--- OUTSIDE RECORDS SUMMARY | 2020-03-12 09:12 | XMS REPORT | Encounter Summary ---
Author Author [facility] Organization [facility] Address Unknown Phone Unavailable Care Team Providers Care Furs Salesperson Name Role Phone Ebony Sharp MD PCP Reason for Visit * Reason Comments Other Encounter Details Care Team Description Date Type Department Adelaida Olivas MD [address] [facility] [address] [place], [place] [phone] Other 07/17/2018 Refill [facility] [address] [facility] [address] [place], [place] [phone] Social History Date Tobacco Use Types Packs/Day [...] Infection Onset Date 08/30/2019 08/30/2019 1:09 PM CREDIT CONTROL MANAGER Influenza - Rule Out 08/30/2019 08/31/2019 09/17/2019 8:17 AM CREDIT CONTROL MANAGER RSV 08/31/2019 documented as of this encounter
--- OUTSIDE RECORDS SUMMARY | 2020-03-12 09:12 | XMS REPORT | Encounter Summary ---
Author Author [facility] Organization [facility] Address Unknown Phone Unavailable Care Team Providers Care Regional Sales Director Name Role Phone Ebony Sharp MD PCP Encounter Details Care Team Description Date Type Department Ebony Sharp MD [address] [facility] [address] [place], [place] [id number] Benign essential HTN; Type 2 diabetes mellitus with hyperglycemia, 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); Hyperthyroidism 09/12/2018 Lab [facility] Primar y Care - [facility] [place] [address] [facility] [address] [place], [place] [phone] Social History Date Tobacco Use Types Packs/Day [...] Ebony Sharp MD - 09/12/2018 3:30 PM AWNINGS MECHANIC Let us get back on track with [...] make sure not to miss it please. NGS MECHANIC documented in this encounter Plan of Treatment Not on filedocumented as of this encounter Procedures Comments Procedure Name Priority Date/Time Associated Diag nosis MICROALBUMIN RANDOM Routine 09/12/2018 Type 2 bela betes mellitus 3:22 PM AWNINGS MECHANIC with hyperglycemia, with long-term current use of insulin ([facility]) THYROID STIMULATING Routine 09/12/2018 Hyperthyro idism HORMONE 3:22 PM AWNINGS MECHANIC T4 FREE Routine 09/12/2018 Hyperthyroidism 3:22 PM AWNINGS MECHANIC HEMOGLOBIN A1C Routine 09/12/2018 Type 2 diabetes mellitus 3:22 PM AWNINGS MECHANIC with hyperglycemia, with long-term current use of insulin ([facility]) COMPREHENSIVE METABOLIC Routine 09/12/2018 Benign essential HTN PANEL 3:22 PM AWNINGS MECHANIC Type 2 diabetes pato litus with hyperglycemia, with long-term current use of insulin ([facility]) documented in this encounter Results * Comprehensive Metabolic Panel (09/12/2018 3:22 PM AWNINGS MECHANIC) Sodium 139 133 - 147 MEQ/L [facility] Potassium 4.6 3.5 - 5.3 MEQ/L [facility] Chloride 99 96 - 112 MEQ/L [facility] Carbon Dioxide 34 (H) 20 - 32 MEQ/L [facility] Anion Gap 6 5 - 17 [facility] Calcium 9.9 8.4 - 10.5 mg/dL [facility] Glucose 253 (H) 70 - 100 mg/dL [facility] Protein Total 7.3 6.0 - 8.2 g/dL [facility] Serum [facility] Albumin 4.0 3.5 - 5.0 g/dL [facility] Alkaline 102 42 - 140 IU/L [facility] Phosphatase [facility] Alanine 47 (H)Comment: ALT reference 0 - 34 IU/L S [facility] Aminotransferas range changed on 03-01-2018 [facility] e LABORATORIES Aspartate 45 15 - 46 IU/L [facility] Aminotransferas REGIONAL e LABORATORIES Bilirubin Total 0.2 0.2 - 1.3 mg/dL [facility] Blood Urea 16 7 - 26 mg/dL [facility] Nitrogen REG[facility]AL LAB[facility]ATORIES Creatinine 0.8 0.4 - 1.1 mg/dL [facility] eGFR Female AA 86 60 - 200 [facility] Comment: REGIONAL Chronic Kidney Disease less LABORATORIES than 60 mL/min/1.73 sq.m Kidney failure less than 15 mL/min/1.73 sq.m eGFR Female 72 60 - 200 [facility] Non-AA Comment: REGIONAL Chronic Kidney Disease less LABORATORIES than 60 mL/min/1.73 sq.m Kidney failure less than 15 mL/min/1.73 sq.m Specimen Blood Performing Organization Address City/[facility] one Number [address] [phone] LABORATORIES * T4 Free (09/12/2018 3:22 PM AWNINGS MECHANIC) T4 Free 1.1 0.8 - 2.2 ng/dL [facility] Specimen Blood Performing Organization Address [facility] one Number [address] [address] LABORATORIES * Thyroid Stimulating Hormone (09/12/2018 3:22 PM AWNINGS MECHANIC) Thyroid 0.04 (L) 0.47 - 4.68 uIU/mL [facility] Stimulating [facility] Hormone LABORATORIES Specimen Blood Performing Organization Address [facility] one Number [address] [phone] LABORATORIES * Microalbumin Random (09/12/2018 3:22 PM AWNINGS MECHANIC) Creatinine 320.3 mg/dL [facility] Urine Random REG[facility]AL LABORATORIES Microalbumin 12.10 mg/dL [facility] mg/dl [facility] Microalbumin/Cr 37.78 (H) 0.00 - 30.00 ug/mg [facility] eatinine Ratio [facility]AL LAB[facility]IES Specimen Urine Performing Organization Address [facility] one Number [address] [place] [address] LABORATORIES * Hemoglobin A1C (09/12/2018 3:22 PM AWNINGS MECHANIC) Hemoglobin A1C 11.6 (H) 4.0 - 5.6 % [facility] Comment: REGIONAL Non-diabetic 4.0 - LABORATORIES 5.6 % Prediabetes 5.7 - 6.4 % Diabetes >= 6.5 % Specimen Blood Performing Organization Address City/State/[facility] Ph one Number [facility] [address] [address] LABORATORIES documented in this encounter Visit Diagnoses Diagnosis Benign essential HTN Type 2 diabetes mellitus with hyperglyc emia, 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) Hyperthyroidism Thyrotoxicosis without mention of goite r or other cause, without mention of thyrotoxic crisis or storm documented in this encounter
--- OUTSIDE RECORDS SUMMARY | 2020-03-12 09:13 | XMS REPORT | Encounter Summary ---
Author Author [facility] Organization [facility] Address Unknown Phone Unavailable Care Team Providers Care Supervisor Drying And Softening Name Role Phone Ebony Sharp MD PCP Reason for Visit * Reason Comments Other Encounter Details Care Team Description Date Type Department Ebony Sharp MD [address] [facility] [address] [place], [place] [phone] Other 04/26/2018 Refill [facility] Primar y Care - [place] [address] [facility] [address] [place], [place] [phone] Social History Date Tobacco Use Types Packs/Day [...]
--- OUTSIDE RECORDS SUMMARY | 2020-03-12 09:13 | XMS REPORT | Encounter Summary ---
Author Author [facility] Organization [facility] Address Unknown Phone Unavailable Care Team Providers Care Research Executive Name Role Phone Ebony Sharp MD PCP Encounter Details Care Team Description Date Type Department Zaida Faria, RN [address] [facility] [address] [place] [address] [place] [address] 05/26/2018 Telephone [facility] Specialists [address] [place] [address] Social History Date Tobacco Use Types Packs/Day [...] pain medication is not working. Pt given Lind. documented in this encounter Plan of Treatment Not on filedocumented as of this encounter Visit Diagnoses Not on filedocumented in this encounter
--- OUTSIDE RECORDS SUMMARY | 2020-03-12 09:13 | XMS REPORT | Encounter Summary ---
Author Author [facility] Organization [facility] Address Unknown Phone Unavailable Care Team Providers Care Scrap Metal Burner Name Role Phone Ebony Sharp MD PCP Reason for Visit * Reason Comments Rectal Bleeding PT REPORTS SHE HAD HERNIA S URGERY ON 05/25 AND TONIGHT WHEN GOING TO THE [place], WHEN SHE WIPED SHE NOTICED BR IGHT RED BLOOD. C/O PAIN TO SURGICAL SITE AND STOMACH CRAMPING Encounter Details Care Team Description Date Type Department Jacob Chew MD [address] [address] Left lower quadrant pain (Primary Dx) 06/15/2018 Emergency [facility] [address] [place], [place] [address] Social History Date Tobacco Use Types Packs/Day [...] If you were prescribed strong pain medication (Iola, Vicodin, Oxycodone, Percoc et, Hydrocodone, Tramadol) or [...] Care Everywhere.* ABDOMINAL PAIN, UNKNOWN CAUSE, (FEMALE) (BELARUSIAN) * RECTAL BLEED, STABLE (BELARUSIAN) documented in this encounter Medications at Time [...] MD - 06/15/2018 6:16 AM CDT 06/15/2018 [facility] History Chief Complaint Patient presents with Rectal Bleeding PT REPORTS SHE HAD HERNIA SURGERY ON 05/25 AND TONIGHT WHEN GOING TO THE [place] , WHEN SHE WIPED SHE NOTICED BRIGHT [...] Negative Ketones Urine Negative Negative mg/* Specific [place], UA >=1.030 1.001 - 1.030 Hemoglobin Urine [...] of recurrent urinary tract infection. READING SITE: [facility] The patient was re-examined and is [...] Lactate Venous 1.8 0.0 - 2.0 mmol/L [facility] Specimen Blood Performing Organization Address City/State[facility] Ph one Number [facility] [address] [place] [phone] [facility] [address] [place] [address], [place] [phone] [facility] * Urinalysis Reflex (06/15/2018 7:15 AM CDT) Appearance, Yellow [facility] Urine [facility] Glucose Urine 100 (A) Negative mg/dL [facility] Bilirubin Urine Negative Negative [facility] Ketones Urine Negative Negative mg/dL [facility] Specific >=1.030 1.001 - 1.030 [facility] [place], UA [facility] Hemoglobin Negative Negative [facility] Urine [facility] PH Urine 5.0 5.0 - 8.0 [facility] Protein Urine Negative Negative mg/dL [facility] Qual [facility] Urobilinogen Negative Negative EU/dL [facility] Urine [facility] Nitrite Urine Negative Negative [facility] Leukocyte Negative Negative [facility] Esterase [facility] Specimen Clean Voided Urine Performing Organization Address City/State/Zipcode Ph one Number [facility] [address] [place] [address] [facility] [address] [place] [address], [place] [phone] [facility] * CT Abdomen Pelvis w contrast (06/15/2018 6:41 AM CDT) Specimen Impressions Performed At 1. Changes of recent ventral hernia repair with mesh. Rounded area of LEVI fat necrosis in the subcutaneous tissue s just inferior to the umbilicus. 2. Hepatomegaly with moderate to severe hepatic steatosis. 3. Cholecystectomy. Hysterectomy. 4. 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 Consider nonemergent urology c onsultation if the patient has a history of recurrent urinary tract infe ction. READING SITE: [facility] Narrative Performed At Patient: ISIAH BENÍTEZ Sex#: F # [id number] Jose#: [id number] Location: [facility] SED-12 Procedure Requested: [id number] CT ABDOM EN PELVIS W CONTRAST Reason for Exam: LLQ pain radiating t oward lower mid abdomen, recent incarcerated hernia surgery 05/25 Exam Ordered: 06/15/2018 0 615 Exam Date/Time: 06/15/2018 06 41 Begin exam date/time: 06/15/[address] ABDOMEN PELVIS W CONTRAST INDICATION: [...] ISIAH BENÍTEZ Sex#: Paulina # [id number] Jose#: [id number] Location: [facility]12 Procedure Requested: [id number] CT ABDOMEN PELVIS W CONTRAST Reason for Exam: LLQ pain radiating toward lower mid abdomen, recent incarcerated hernia surgery 05/25 Exam Ordered: 06/15/2018 0615 Exam Date/Time: 06/15/2018 0641 Begin exam date/time: 06/15/[address] ABDOMEN PELVIS W CONTRAST INDICATION: Left [...] of recurrent urinary tract infection. READING SITE: [facility] Performing Organization Address City/State/Zipcode Ph one Number [place] * Comprehensive Metabolic Panel (06/15/2018 6:03 AM CDT) Sodium 137 133 - 147 MEQ/L [facility] Potassium 4.1 3.5 - 5.3 MEQ/L [facility] Chloride 99 96 - 112 MEQ/L [facility] Carbon Dioxide 30 20 - 32 MEQ/L [facility] Anion Gap 9 5 - 17 [facility] Calcium 9.3 8.4 - 10.5 mg/dL [facility] Glucose 282 (H) 70 - 100 mg/dL [facility] Protein Total 7.7 6.0 - 8.2 g/dL [facility] Serum [facility] Albumin 3.9 3.5 - 5.0 g/dL [facility] Alkaline 99 42 - 140 IU/L [facility] Phosphatase [facility] Alanine 28Comment: ALT reference range 0 - 34 IU/L [facility] Aminotransferas changed on 03-01-2018 [facility] e [facility] Aspartate 30 15 - 46 IU/L [facility] Aminotransferas [facility] Bilirubin Total 0.2 0.2 - 1.3 mg/dL [facility] Blood Urea 13 7 - 26 mg/dL [facility] Nitrogen [facility] Creatinine 0.7 0.4 - 1.1 mg/dL [facility] eGFR Female AA 101 60 - 200 [facility] Comment: [facility] Chronic Kidney Disease less [facility] than 60 mL/min/1.73 sq.m Kidney failure less than 15 mL/min/1.73 sq.m eGFR Female 84 60 - 200 [facility] Non-AA Comment: [facility] Chronic Kidney Disease less [facility] than 60 mL/min/1.73 sq.m Kidney failure less than 15 mL/min/1.73 sq.m Specimen Blood Performing Organization Address City/State/Zipcode Ph one Number [facility] [address] [place] [facility], [place] [phone] [facility] [address] [place] [address], [facility] * CBC and Diff (manual diff if necessary) (06/15/2018 6:03 AM CDT) WBC 11.13 (H) 4.00 - 11.00 TH/uL [facility] RBC 4.02 4.00 - 5.00 MIL/uL [facility] Hemoglobin 13.2 12.0 - 15.0 g/dL [facility] Hematocrit 39 36 - 45 % [facility] MCV 96 80 - 99 fL [facility] MCH 33 27 - 34 pg [facility] MCHC 34 32 - 36 % [facility] RDW 13.7 9.0 - 14.5 % [facility] Platelet Count 194 140 - 400 TH/uL [facility] MPV 9.8 9.4 - 12.3 fL [facility] % Neutrophils 60 45 - 78 % [facility] %Lymphocytes 23 15 - 47 % [facility] %Monocytes 8 0 - 12 % [facility] %Eosinophils 9 (H) 0 - 7 % [facility] %Basophils 0 0 - 2 % [facility] # Granulocytes 6.67 1.7 - 6.8 TH/uL [facility] # Lymphocytes 2.53 1.0 - 3.3 TH/uL [facility] # Monocytes 0.89 0.2 - 0.9 TH/uL [facility] # Eosinophils 1.00 (H) 0.0 - 0.4 TH/uL [facility] # Basophils 0.04 0.0 - 0.1 TH/uL [facility] Specimen Blood Performing Organization Address City/State/Zipcode Ph one Number [facility] [address] [place] [address] [facility] [address] [place] [address] [place] [address], [facility] documented in this encounter Visit [...] mL, Intravenous, Administer over 61 Minutes, Once, Wed06/15/18 at 0618, For 1 dose documented in this encounter
--- OUTSIDE RECORDS SUMMARY | 2020-03-12 09:13 | XMS REPORT | Encounter Summary ---
Author Author [facility] Organization [facility] Address Unknown Phone Unavailable Care Team Providers Care Continuous Miner Name Role Phone Ebony Sharp MD PCP Reason for Visit * Auth/Cert (Routine) Referred By Contact Referred To Contact Status Reason Specialty Diagnoses / Procedures Medardo Tate MD [address] [facility] [address] [place] [address] Pending Review Procedures Case request operating room: REPAIR, HERNIA, INCISIONAL, LAPAROSCOPIC, USING MESH Encounter Details Care Team Description Date Type Department Medardo Tate MD [address] [facility] [address] [place] [address] [phone] Incarcerated incisional hernia 05/25/2018 [facility] [address] [place], [place] [phone] Social History Date Tobacco Use Types Packs/Day [...] s under the skin nightly. insulin syringe (Data[employer] ULTRA-FINE) 0.3 mL 31 gauge x 5/16 [...] sent through Care Everywhere.* Hernia Surgery, After (Indonesian) documented in this encounter Medications at Time [...] POC 205 (H) 70 - 100 mg/dL [facility] Specimen Performing Organization Address City/State/Zipcode Ph one Number [facility] [address] [facility] [place], [place] [phone] [facility] [address] [facility] [place] [address], [facility] documented in this encounter Visit Diagnoses [...] PRN, nausea/vomiting (3rd line), Starting We d 10/3/18 at 1028, PACU (only) oxyCODONE-acetaminophen (PERCOCET) 5-32 5 mg 1-2 tablet 1-2 tablet, Oral, Once as needed, sever e pain (pain score 7-10), Starting 05/25/18 at 1028, For 1 dose, PACU (only), Administer once as needed for moderate pain prior to discharge home when tolerating oral fluids., documented in this encounter
--- OUTSIDE RECORDS SUMMARY | 2020-03-12 09:13 | XMS REPORT | Encounter Summary ---
Author Author [facility] Organization [facility] Address Unknown Phone Unavailable Care Team Providers Care High Tension Tester Name Role Phone Ebony Sharp MD PCP Reason for Referral * Auth/Cert (Routine) Referred By Contact Referred To Contact Status Reason Specialty Diagnoses / Procedures Medardo Tate MD [address] [facility] [address] [place] [address] Pending Review Procedures Case request operating room: REPAIR, HERNIA, INCISIONAL, LAPAROSCOPIC, USING MESH Encounter Details Care Team Description Date Type Department Rose Pool RN 04/26/2018 Prep for [facility] [address] [facility] [address] [place], [place] [phone] Social History Date Tobacco Use Types Packs/Day [...]
--- OUTSIDE RECORDS SUMMARY | 2020-03-12 09:13 | XMS REPORT | Encounter Summary ---
Author Author [facility] Organization [facility] Address Unknown Phone Unavailable Care Team Providers Care Forensic Toxicologist Name Role Phone Ebony Sharp MD PCP Reason for Referral * Surgical (Routine) Referred By Contact Referred To Contact Status Reason Specialty Diagnoses / Procedures Ebony Sharp MD [address] [facility] [address] [place] [address] Medardo Tate MD [address] [facility] [address] [place] [address] Closed Specialty Services General Surgery Diagnoses Required Hernia of abdominal wall Encounter Details Care Team Description Date Type Department RehfuadtJennifer RN Hernia of abdominal wall (Primary Dx) 04/11/2018 Orders Only [facility] Primar y [facility] - [facility] [address] [facility] [address] [place] [phone] Social History Date Tobacco Use Types Packs/Day [...] Last Indicated Resolved Time Infection Onset Date 08/30/2017 04/19/2018 12:13 PM CDT Influenza 08/30/2017 documented as of this encounter
--- OUTSIDE RECORDS SUMMARY | 2020-03-12 09:13 | XMS REPORT | Encounter Summary ---
Author Author [facility] Organization [facility] Address Unknown Phone Unavailable Care Team Providers Care Educational Assistant Teacher Name Role Phone Ebony Sharp MD PCP Reason for Visit * Reason Comments Medication Refill Encounter Details Care Team Description Date Type Department Jennifer Feng RN Medication Refill 04/26/2018 Refill [facility] Primsc y [facility] [address] [facility] [address] [place], [place] [phone] Social History Date Tobacco Use Types Packs/Day [...]
--- OUTSIDE RECORDS SUMMARY | 2020-03-12 09:13 | XMS REPORT | Encounter Summary ---
Author Author [facility] Organization [facility] Address Unknown Phone Unavailable Care Team Providers Care Automotive Welder Name Role Phone Ebony Sharp MD PCP Reason for Visit * Reason Comments Hernia Encounter Details Care Team Description Date Type Department Medardo Tate MD [address] [facility] [address] [place], [place] [phone] Incisional hernia, without obstruction o r gangrene (Primary Dx) 04/26/2018 Initial consult [facility] Surgic [facility] Specialists [address] [facility] [address] [place], [place] [phone] Social History Date Tobacco Use Types Packs/Day [...] is a 67 y.o. female 1950 CSN: [id number] Chief Complaint Patient presents with Hernia HPI: [...] ARTHRODESIS; Surgeon: Adelaida Olivas MD; Location: [facility] Main OR; Service: Orthopedics; Later [...]
--- OUTSIDE RECORDS SUMMARY | 2020-03-12 09:13 | XMS REPORT | Encounter Summary ---
Author Author [facility] Organization [facility] Address Unknown Phone Unavailable Care Team Providers Care Chargemaster Specialist Name Role Phone Ebony Sharp MD PCP Reason for Visit * Auth/Cert (Routine) Referred By Contact Referred To Contact Status Reason Specialty Diagnoses / Procedures Medardo Tate MD [address] [facility] [address] [place] [address] Pending Review Procedures Case request operating room: REPAIR, HERNIA, INCISIONAL, LAPAROSCOPIC, USING MESH Encounter Details Care Team Description Date Type Department Medardo Tate MD [address] [facility] [address] [place] [address] [phone] LAPAROSCOPIC INCISIONAL HERNIA REPAIR WI TH MESH 05/25/2018 Surgery [facility] [address] [place], [place] [phone] Social History Date Tobacco Use Types Packs/Day [...] s under the skin nightly. insulin syringe ([employer] ULTRA-FINE) 0.3 mL 31 gauge x 5/16 [...] sent through Care Everywhere.* Hernia Surgery, After (Finnish) documented in this encounter Medications at Time [...] CDT OPERATIVE NOTE PATIENT [facility] DATE: 05/25/2018 AGE: 67 y.o. : 1950 [...] 70 - 100 mg/dL [facility] Specimen Performing Organization Address City/State/Zipcode Ph one Number [facility] [address] [place] [address] [facility] [address] [place] [address], [facility] documented in this encounter Visit [...]
--- OUTSIDE RECORDS SUMMARY | 2020-03-12 09:13 | XMS REPORT | Encounter Summary ---
Author Author [facility] Organization [facility] Address Unknown Phone Unavailable Care Team Providers Care Patient Registrar Name Role Phone Ebony Sharp MD PCP Encounter Details Care Team Description Date Type Department RiatJennifer RN Hepatitis C antibody test positive (Prim emigdio Dx) 04/11/2018 Orders Only [facility] Primar y Care - East [address] [facility] [address] [place], [place] [phone] Social History Date Tobacco Use Types Packs/Day [...]
--- OUTSIDE RECORDS SUMMARY | 2020-03-12 09:13 | XMS REPORT | Encounter Summary ---
Author Author [facility] Organization [facility] Address Unknown Phone Unavailable Care Team Providers Care Advertising Account Manager Name Role Phone Ebony Sharp MD PCP Reason for Visit * Reason Comments Abdominal Pain left abd pain, recently bela gnosed with hernia. has surgeon appt today at 1345- but pain too bad to wait, kunal, 05/02. Encounter Details Care Team Description Date Type Department Celso Palma, DO [address] [place], [place] [id number] Umbilical hernia without obstruction and without gangrene (Primary Dx) 04/19/2018 Emergency [facility] [address] [place], [place] [id number] Social History Date Tobacco Use Types Packs/Day [...] through Care Everywhere.* Hernia, What Is a (Bahamian) * HERNIA (INGUINAL, VENTRAL, UMBILICAL) (GRENADIAN) documented in this encounter Medications at Time [...] DO - 04/19/2018 12:25 PM CDT 04/19/2018 [facility] History Chief Complaint Patient presents [...] and discussed the patient had [facility] ER today with a recent CT scan [...] other significant abnormality is identified. READING SITE: [facility] NOTE: Parts of this report were generated [...] Lactate Venous 1.5 0.0 - 2.0 mmol/L [facility] Specimen Blood Performing Organization Address City/State/Zipcode Ph one Number [facility] [address] [facility] [place] [address] [facility] [place] [address] [facility] [place] [address], [place] [phone] [facility] * Lipase (04/19/2018 1:30 PM CDT) Lipase 76 23 - 300 IU/L [facility] ALBERT MARBIN [facility] Specimen Blood Performing Organization Address City/State/[facility] Ph one Number [place] [facility] [address] [place] [address] [facility] [facility] [address] [place] [address], [place] [phone] [facility] * Comprehensive Metabolic Panel (04/19/2018 1:30 PM CDT) Sodium 138 133 - 147 MEQ/L [facility] Potassium 4.0 3.5 - 5.3 MEQ/L [facility] Chloride 99 96 - 112 MEQ/L [facility] Carbon Dioxide 32 20 - 32 MEQ/L [facility] Anion Gap 7 5 - 17 [facility] Calcium 9.9 8.4 - 10.5 mg/dL [facility] Glucose 130 (H) 70 - 100 mg/dL [facility] Protein Total 8.3 (H) 6.0 - 8.2 g/dL [facility] Serum [facility] [place] Albumin 4.5 3.5 - 5.0 g/dL [facility] Alkaline 96 42 - 140 IU/L [facility] Phosphatase [facility] [place] Alanine 33Comment: ALT reference range 0 - 34 IU/L [facility] Aminotransferas changed on 03-01-2018 [facility] e [facility] Aspartate 40 15 - 46 IU/L [facility] Aminotransferas [facility] [place] e [facility] Bilirubin Total 0.4 0.2 - 1.3 mg/dL [facility] Blood Urea 20 7 - 26 mg/dL [facility] Nitrogen ALBERT ZAZUETAS [facility] Creatinine 0.8 0.4 - 1.1 mg/dL [facility] eGFR Female AA 86 60 - 200 [facility] Comment: [facility] Chronic Kidney Disease less [facility] than 60 mL/min/1.73 sq.m Kidney failure less than 15 mL/min/1.73 sq.m eGFR Female 72 60 - 200 [facility] Non-AA Comment: [facility] AGUSTINS Chronic Kidney Disease less [facility] than 60 mL/min/1.73 sq.m Kidney failure less than 15 mL/min/1.73 sq.m Specimen Blood Performing Organization Address City/State/Zipcode Ph one Number [facility] [address] [place] [employer] [place] [address] [facility]UST[facility] [address] [facility] [employer] [place] [address], [facility] * CBC and Diff (manual diff if necessary) (04/19/2018 1:30 PM CDT) WBC 9.23 4.00 - 11.00 TH/uL [facility] [place] ZAZUETA [facility] RBC 4.58 4.00 - 5.00 MIL/uL [facility] Hemoglobin 14.9 12.0 - 15.0 g/dL [facility] AL[facility]ERT [facility] Hematocrit 43 36 - 45 % [place] PR[facility] MCV 95 80 - 99 fL [facility]ERT [facility] MCH 33 27 - 34 pg [facility] AL[facility] MCHC 34 32 - 36 % [facility] RDW 14.0 9.0 - 14.5 % [facility] Platelet Count 160 140 - 400 TH/uL [facility] AL[facility]ERT MARBIN [facility] MPV 10.1 9.4 - 12.3 fL [facility] % Neutrophils 53 45 - 78 % [facility] %Lymphocytes 31 15 - 47 % [facility] %Monocytes 11 0 - 12 % [facility] %Eosinophils 4 0 - 7 % [facility] %Basophils 0 0 - 2 % [facility] # Granulocytes 4.90 1.7 - 6.8 TH/uL [facility] # Lymphocytes 2.88 1.0 - 3.3 TH/uL [facility] # Monocytes 1.00 (H) 0.2 - 0.9 TH/uL [facility] # Eosinophils 0.41 (H) 0.0 - 0.4 TH/uL [facility] # Basophils 0.04 0.0 - 0.1 TH/uL [facility] Specimen Blood Performing Organization Address City/State/Zipcode Ph one Number [facility] [address] [place] [address] [facility] [address] [facility] [place] [address], [facility] * XR Abdomen min 2 [...] significant abnormality is ирина ntified. READING SITE: [facility] NOTE: Parts of this report were generated wit Rank By Search voice recognition software. J Digit Imagin2010;24(4):724-8. Narrative Performed At Patient: ISIAH BENÍTEZ Sex#: Paulina # [id number] Jose#: [id number] Location: [facility]- Procedure Requested: [id number] XR ABDOM EN MIN 2 VIEWS Reason for Exam: ABDOMINAL PAIN Exam Ordered: 04/19/2018 12 45 Exam Date/Time: 04/19/2018 130 4 Begin exam date/time: 04/19/2018 125 0 3 images of the abdomen provided on this study; Comparison: None Procedure Note Interface, Rad Results In - 04/19/2018 1:40 PM CDT Patient: ISIAH BENÍTEZ Sex#: F # [id number] Jose#: [id number] Location: [facility]- Procedure Requested: [id number] XR ABDOMEN MIN 2 VIEWS Reason for [...] other significant abnormality is identified. READING SITE: [facility] NOTE: Parts of this report were generated [...] CDT Influenza 08/30/2017 documented as of this encounter"
--- OUTSIDE RECORDS SUMMARY | 2020-03-12 09:13 | XMS REPORT | Encounter Summary ---
Author Author [facility] Organization [facility] Address Unknown Phone Unavailable Care Team Providers Care Engravings Polisher Name Role Phone Ebony Sharp MD PCP Reason for Visit * Reason Comments Other Encounter Details Care Team Description Date Type Department Ebony Sharp MD [address] [facility] [address] [place] [address] Other 04/17/2018 Refill [facility] Primar y Care - East [address] [facility] [address] [place], [place] [id number] Social History Date Tobacco Use Types Packs/Day [...] 08/30/2017 04/19/2018 12:13 PM CDT Influenza 08/30/2017 08/30/2019 08/30/2019 1:09 PM MILLINERY COPYIST Influenza - Rule Out 08/30/2019 08/31/2019 09/17/2019 8:17 AM MILLINERY COPYIST RSV 08/31/2019 documented as of this encounter
--- OUTSIDE RECORDS SUMMARY | 2020-03-12 09:13 | XMS REPORT | Encounter Summary ---
Author Author [facility] Organization [facility] Address Unknown Phone Unavailable Care Team Providers Care Incident Response Lead Name Role Phone Ebony Sharp MD PCP Reason for Visit * Reason Comments Medication Refill Encounter Details Care Team Description Date Type Department Medardo Tate MD [address] [facility] [address] [place] [address] [phone] Medication Refill 05/11/2018 Refill [facility] [address] [place], [place] [address] Social History Date Tobacco Use Types Packs/Day [...]
--- OUTSIDE RECORDS SUMMARY | 2020-03-12 09:13 | XMS REPORT | Encounter Summary ---
Author Author [facility] Organization [facility] Address Unknown Phone Unavailable Care Team Providers Care Goodyear Welter Name Role Phone Ebony Sharp MD PCP Reason for Visit * Auth/Cert (Routine) Referred By Contact Referred To Contact Status Reason Specialty Diagnoses / Procedures Medardo Tate MD [address] [address] Pending Review Procedures Case request operating room: REPAIR, HERNIA, INCISIONAL, LAPAROSCOPIC, USING MESH Encounter Details Care Team Description Date Type Department Ariel Hernandez MD [address] [place] [address] [phone] Glenys Howe CRNA [address] [place] [address] [phone] 05/25/2018 Anesthesia [facility] [address] [place] [address] Anesthesia Record Responsible Anesthesiologist Anesthesia Start Time [...] by serena Airway placement: Yes; Placed By: Board Operator; Site: Oral; Device: ETT - Cuffed; [...] risks discussed with patient. Plan discussed with MIDDLE SCHOOL BAND TEACHER. Post-operative analgesia: routine analgesia and antiemetics Recovery [...]
--- OUTSIDE RECORDS SUMMARY | 2020-03-12 09:13 | XMS REPORT | Encounter Summary ---
Author Author [facility] Organization [facility] Address Unknown Phone Unavailable Care Team Providers Care Sort Operations Supervisor Name Role Phone Ebony Sharp MD PCP Reason for Visit * Reason Comments Medication Refill Encounter Details Care Team Description Date Type Department Ebony Sharp MD [address] [facility] [address] [place], [place] [id number] Medication Refill 04/20/2018 Refill [facility] Primar y Care - East [address] [facility] [address] [place], [place] [address] Social History Date Tobacco Use Types Packs/Day [...]
--- OUTSIDE RECORDS SUMMARY | 2020-03-12 09:13 | XMS REPORT | Encounter Summary ---
Author Author [facility] Organization [facility] Address Unknown Phone Unavailable Care Team Providers Care International Bank Manager Name Role Phone Ebony Sharp MD PCP Encounter Details Care Team Description Date Type Department Jennifer Feng RN 04/19/2018 Telephone [facility] Primar y Care - East [address] [facility] [address] [place], [place] [id number] Social History Date Tobacco Use Types Packs/Day [...]
--- OUTSIDE RECORDS SUMMARY | 2020-03-12 09:14 | XMS REPORT | Encounter Summary ---
Author Author [facility] Address Unknown Phone Unavailable Care Team Providers Care Drafter Electrical Name Role Phone Ebony Sharp MD PCP Reason for Visit * Reason Comments Follow-up eldon left ankle [id number] cajTVX: Appt. Reminder (02/08/2018 06:41 PM) Phone Call - Message Delivered (X=Answe ring Machine) Encounter Details Care Team Description Date Type Department Adelaida Olivas MD [address] [facility] [address] [place] [address] [phone] 02/10/2018 Hist-Appointmen [facility] [address] [facility] [address] [place] [address] Social History Date Tobacco Use Types Packs/Day [...]
--- OUTSIDE RECORDS SUMMARY | 2020-03-12 09:14 | XMS REPORT | Encounter Summary ---
Author Author [facility] Organization [facility] Address Unknown Phone Unavailable Care Team Providers Care Care Aid Name Role Phone Ebony Sharp MD PCP Reason for Referral * MRI/CAT/PET Scan (Routine) Referred By Contact Referred To Contact Status Reason Specialty Diagnoses / Procedures Ebony Sharp MD [address] [facility] [address] [place] [address] [place] [address] Closed Radiology Diagnoses Periumbilical abdominal pain P rocedures CT Abdomen Pelvis w contrast * Diagnostic Imaging (Routine) Referred By Contact Referred To Contact Status Reason Specialty Diagnoses / Procedures Ebony Sharp MD [address] [facility] [address] [place] [address] Sle Mammo [address] [facility], [address] [place] [address] Canceled Radiology Diagnoses Healthcare maintenance P rocedures MA Mammogram screening w CAD bilat Reason for Visit * Reason Comments Follow-up 3 months AWV Abdominal Pain knot on abdomen Encounter Details Care Team Description Date Type Department Ebony Sharp MD [address] [facility] [address] [place] [address] [phone] Chronic obstructive pulmonary disease, u nspecified COPD [...] hyperthyroidism; Periumbilical abdominal pain 04/07/2018 Office Visit [facility] [address] [facility] [address] [place], [place] [address] Social History Date Tobacco Use Types Packs/Day [...] as PCP - Eliecer Rosenberg MA as Power Generation Turbine Room Operator The patients demographics, including age, gender, [...] in nightly. 10 mL 0 insulin syringe ([employer] ULTRA-FINE) 0.3 mL 31 gauge x 5/16 [...] Performed At Tiny fat-containing left periumbilical hernia [facility] ON No acute CT abnormality within the abdo men or pelvis Nonobstructing left renal calculus READING SITE: [facility] Narrative Performed At Patient: ISIAH BENÍTEZ Sex#: F # [id number] Jose#: [id number] Location: [facility] CT Procedure Requested: [id number] CT ABDOM EN PELVIS W CONTRAST Reason [...] ISIAH BENÍTEZ Sex#: F # [id number] Jose#: [id number] Location: [facility] CT Procedure Requested: [id number] CT ABDOMEN PELVIS W CONTRAST Reason for [...] pelvis Nonobstructing left renal calculus READING SITE: [facility] Imaging Performing Organization Address City/State/Zipcode Ph one Number [place] * Comprehensive Metabolic Panel (04/07/2018 3:03 PM CDT) Sodium 138 133 - 147 MEQ/L [facility] Potassium 4.1 3.5 - 5.3 MEQ/L [facility] Chloride 98 96 - 112 MEQ/L [facility] Carbon Dioxide 34 (H) 20 - 32 MEQ/L [facility] Anion Gap 6 5 - 17 [facility] Calcium 9.2 8.4 - 10.5 mg/dL [facility] Glucose 128 (H) 70 - 100 mg/dL [facility] Protein Total 7.8 6.0 - 8.2 g/dL [facility] Serum [facility] Albumin 4.2 3.5 - 5.0 g/dL [facility] Alkaline 88 42 - 140 IU/L [facility] Phosphatase [facility] Alanine 27Comment: ALT reference range 0 - 34 IU/L [facility] Aminotransferas changed on 03-01-2018 REGIONAL e LABORATORIES Aspartate 31 15 - 46 IU/L [facility] Aminotransferas [facility] Bilirubin Total 0.3 0.2 - 1.3 mg/dL [facility] Blood Urea 19 7 - 26 mg/dL [facility] Nitrogen [facility] Creatinine 0.7 0.4 - 1.1 mg/dL [facility] eGFR Female AA 101 60 - 200 [facility] Comment: REGIONAL Chronic Kidney Disease less LABORATORIES than 60 mL/min/1.73 sq.m Kidney failure less than 15 mL/min/1.73 sq.m eGFR Female 84 60 - 200 [facility] Non-AA Comment: REGIONAL Chronic Kidney Disease less LABORATORIES than 60 mL/min/1.73 sq.m Kidney failure less than 15 mL/min/1.73 sq.m Specimen Blood Performing Organization Address [facility] one Number [address] [address] LABORATORIES * T4 Free (04/07/2018 3:03 PM CDT) T4 Free 1.2 0.8 - 2.2 ng/dL [facility] Specimen Blood Performing Organization Address [facility] one Number [address] [address] LABORATORIES * Thyroid Stimulating Hormone (04/07/2018 3:03 PM CDT) Thyroid 0.09 (L) 0.47 - 4.68 uIU/mL [facility] Hormone LABORATORIES Specimen Blood Performing Organization Address [facility] one Number [address] [address] LABORATORIES * Hemoglobin A1C (04/07/2018 3:03 PM CDT) Hemoglobin A1C 8.2 (H) 4.0 - 5.6 % [facility] Comment: REGIONAL Non-diabetic 4.0 - LABORATORIES 5.6 % Prediabetes 5.7 - 6.4 % Diabetes >= 6.5 % Specimen Blood Performing Organization Address City/[facility] Ph one Number [facility] [address] LABORATORIES * Lipid Panel (04/07/2018 3:03 PM CDT) Cholesterol 244 (H) 100 - 200 mg/dL [facility] HDL Cholesterol 59 40 - 110 mg/dL [facility] Non-HDL 185 (H) 0 - 130 mg/dL [facility] Triglycerides 142 0 - 150 mg/dL [facility] LDL Cholesterol 157 (H) 0 - 99 mg/dL [facility] Cholesterol/HDL 4.1 0.0 - 4.5 [facility] Ratio [facility] LABORATORIES Specimen Blood Performing Organization Address City/[facility] one Number [facility] [place] [address] LABORATORIES * Hepatitis C Antibody (04/07/2018 3:03 PM CDT) Hepatitis C Ab Reactive (A) Non-reactive [facility] SCO Ratio 3.89Comment: S/CO ratio <10.0 [facility] may indicate a false positive REGIONAL HCV antibody, especially in LABORATORIES low risk populations. Confirmation by HCV PCR is recommended. Contact Client Services. Specimen Blood Performing Organization Address City/[facility] one Number [facility] BETHANYShazia [address] [address] LABORATORIES documented in this encounter Visit Diagnoses [...]
--- OUTSIDE RECORDS SUMMARY | 2020-03-12 09:14 | XMS REPORT | Encounter Summary ---
Author Author [facility] Organization [facility] Address Unknown Phone Unavailable Care Team Providers Care Evs Manager Name Role Phone Ebony Sharp MD PCP Encounter Details Care Team Description Date Type Department Adelaida Olivas MD [address] [facility] [address] [place] [address] 03/09/2018 Hist-Telephone Aide Orthopaedi c [facility] [address] [facility] [address] [place] [address] Social History Date Tobacco Use [...] Tavarez on 03/09/2018 Method used: Electronically to [facility] ([facility]ail) [address] [place] [address] Ph: [phone] Fax: [phone] RxID: [id number] left voicemail for patient that Rx was filled and waiting at [facility]. documented in this encounter Plan of Treatment Not on filedocumented as of this encounter Visit Diagnoses Not on filedocumented in this encounter Additional Health Concerns Last Indicated Resolved Time Infection Onset Date 08/30/2017 04/19/2018 12:13 PM CDT Influenza 08/30/2017 08/30/2019 08/30/2019 1:09 PM CATERING TRUCK OPERATOR Influenza - Rule Out 08/30/2019 08/31/2019 09/17/2019 8:17 AM CATERING TRUCK OPERATOR RSV 08/31/2019 documented as of this encounter
--- OUTSIDE RECORDS SUMMARY | 2020-03-12 09:14 | XMS REPORT | Encounter Summary ---
Author Author [facility] Organization [facility] Address Unknown Phone Unavailable Care Team Providers Care Mailroom Courier Name Role Phone Ebony Sharp MD PCP Reason for Referral * MRI/CAT/PET Scan (Routine) Referred By Contact Referred To Contact Status Reason Specialty Diagnoses / Procedures Ebony Sharp MD [address] [place] [address] Closed Radiology Diagnoses Periumbilical abdominal pain P rocedures CT Abdomen Pelvis w contrast Reason for Visit * MRI/CAT/PET Scan (Routine) Referred By Contact Referred To Contact Status Reason Specialty Diagnoses / Procedures Ebony Sharp MD [address] [place] [address] Closed Radiology Diagnoses Periumbilical abdominal pain P rocedures CT Abdomen Pelvis w contrast Encounter Details Care Team Description Date Type Department Ebony Sharp MD [address] [place] [id number] Periumbilical abdominal pain 04/10/2018 [facility] [address] [facility] [place] [address] Social History Date Tobacco Use Types Packs/Day [...] Performed At Tiny fat-containing left periumbilical hernia [facility] No acute CT abnormality within the abdo men or pelvis Nonobstructing left renal calculus READING SITE: [facility] Narrative Performed At Patient: ISIAH BENÍTEZ Sex#: F # [id number] Jose#: [id number] Location: [facility] CT Procedure Requested: [id number] CT ABDOM EN PELVIS W CONTRAST Reason [...] ISIAH BENÍTEZ Sex#: F # [id number] Jose#: [id number] Location: [facility] CT Procedure Requested: [id number] CT ABDOMEN PELVIS W CONTRAST Reason for [...] pelvis Nonobstructing left renal calculus READING SITE: [facility] Performing Organization Address City/State/Zipcode Ph one [...]
--- OUTSIDE RECORDS SUMMARY | 2020-03-12 09:14 | XMS REPORT | Encounter Summary ---
Author Author [facility] Organization [facility] Address Unknown Phone Unavailable Care Team Providers Care Cat Swamper Name Role Phone Ebony Sharp MD PCP Encounter Details Care Team Description Date Type Department Adelaida Olivas MD [address] [facility] [address] [place] [address] 03/01/2018 [facility] [address] [facility] [address] [place], [place] [address] Social History Date Tobacco Use Types Packs/Day [...] CDT Influenza 08/30/2017 08/30/2019 08/30/2019 1:09 PM JUNIOR SYSTEMS ANALYST Influenza - Rule Out 08/30/2019 08/31/2019 09/17/2019 8:17 AM JUNIOR SYSTEMS ANALYST RSV 08/31/2019 documented as of this encounter
--- OUTSIDE RECORDS SUMMARY | 2020-03-12 09:14 | XMS REPORT | Encounter Summary ---
Author Author [facility] Organization [facility] Address Unknown Phone Unavailable Care Team Providers Care Home Energy Consultant Name Role Phone Ebony Sharp MD PCP Encounter Details Care Team Description Date Type Department Adelaida Olivas MD [address] [facility] [address] [place] [address] 12/14/2017 [facility] [address] [facility] [address] [place], [place] [id number] Social History Date Tobacco Use Types Packs/Day [...] #3. Ple ase call patient back at [phone] Call taken by: Brenda Joyner on December [...] CDT Influenza 08/30/2017 08/30/2019 08/30/2019 1:09 PM SPIRITUAL CARE COORDINATOR Influenza - Rule Out 08/30/2019 08/31/2019 09/17/2019 8:17 AM SPIRITUAL CARE COORDINATOR RSV 08/31/2019 documented as of this encounter
--- OUTSIDE RECORDS SUMMARY | 2020-03-12 09:14 | XMS REPORT | Encounter Summary ---
Author Author [facility] Organization [facility] Address Unknown Phone Unavailable Care Team Providers Care Straightener Name Role Phone Ebony Sharp MD PCP Reason for Visit * Reason Comments Cough coughing up alot of mucus, sneezing, cough is very deep sounding, coughing and mucus is causing problems with fortino thing, hasn't checked temp, sx's for 2 weeks Encounter Details Care Team Description Date Type Department Rosa, Atify, TEACHER CITIZENSHIP [address] [facility] [address] [place] [address] Acute sinusitis, recurrence not specifie d, unspecified location (Primary Dx) 02/01/2018 Office Visit [facility] [address] [facility] [address] [place] [address] Social History Date Tobacco Use [...] encounter Patient Instructions * Patient Instructions* Samuel Lee, TEACHER CITIZENSHIP - 02/01/2018 4:29 PM CDT Take doxycycline [...] towel soaked in hot lyle er. Or, client finance analyst the shower and direct the hot spray onto your face. Using a vap orizer along with a menthol rub at night may also help. Anexpectorantcontaining guaifenesin may help thin the mucus and promote d rainage from the sinuses. Rcqm-uqg-hpceeylzdrhpegbsyispsju be used unless a similar medicine was [...] increased. Read labels. You can also ask [facility] pharmacist for help. (NOTE:Persons with high blood pressure should not use d econgestants. They can raise blood pressure.) Kwer-qok-zconyvvflvzzknzqzkhxhfvn help if allergies contributed to your s [...] problems Symptoms not resolving within 10 days 5424-6806 [employer]. [address] [place] [address], [place] [address] 7. All rights reserved. This information is [...] ARTHRODESIS; Surgeon: Adelaida Olivas MD; Location: [facility] Main OR; Service: Orthopedics; Later ality: Left; [...] towel soaked in hot lyle er. Or, client finance analyst the shower and direct the hot spray onto your face. Using a vap orizer along with a menthol rub at night may also help. Anexpectorantcontaining guaifenesin may help thin the mucus and promote d rainage from the sinuses. Neap-whf-vgqzwwofdnxvcrnvvzbsvye be used unless a similar medicine was [...] increased. Read labels. You can also ask [facility] pharmacist for help. (NOTE:Persons with high blood pressure should not use d econgestants. They can raise blood pressure.) Plkp-idr-pwasiziquqkqavcdqgqzudll help if allergies contributed to your s [...] problems Symptoms not resolving within 10 days 8472-[address] [employer]. [address] [place] [address] 7. All rights reserved. This information is [...]
--- OUTSIDE RECORDS SUMMARY | 2020-03-12 09:14 | XMS REPORT | Encounter Summary ---
Author Author [facility] Organization [facility] Address Unknown Phone Unavailable Care Team Providers Care Hand Molder And Caster Name Role Phone Ebony Sharp MD PCP Reason for Visit * Reason Comments Other Encounter Details Care Team Description Date Type Department Ebony Sharp MD [address] [facility] [address] [place] [address] Other 02/17/2018 Refill [facility] Prim[facility] y Care - [facility] [address] [facility] [address] [place], [place] [id number] Social History Date Tobacco Use Types Packs/Day [...]
--- OUTSIDE RECORDS SUMMARY | 2020-03-12 09:14 | XMS REPORT | Encounter Summary ---
Author Author [facility] Organization [facility] Address Unknown Phone Unavailable Care Team Providers Care Manual Control Auger Press Operator Name Role Phone Ebony Sharp MD PCP Encounter Details Care Team Description Date Type Department Adelaida Olivas MD [address] [facility] [address] [place], [place] [id number] 02/25/2018 [facility] [address] [facility] [address] [place], [place] [id number] Social History Date Tobacco Use Types Packs/Day [...] Mello on 02/28/2018 Method used[facility] [address] [place] [address] Ph: [phone] Fax: [phone] RxID: [id number] documented in this encounter Plan of Treatment Not on filedocumented as of this encounter Visit Diagnoses Not on filedocumented in this encounter Additional Health Concerns Last Indicated Resolved Time Infection Onset Date 08/30/2017 04/19/2018 12:13 PM CDT Influenza 08/30/2017 08/30/2019 08/30/2019 1:09 PM MATHEMATICIAN RESEARCH Influenza - Rule Out 08/30/2019 08/31/2019 09/17/2019 8:17 AM MATHEMATICIAN RESEARCH RSV 08/31/2019 documented as of this encounter
--- OUTSIDE RECORDS SUMMARY | 2020-03-12 09:14 | XMS REPORT | Encounter Summary ---
Author Author [facility] Organization [facility] Address Unknown Phone Unavailable Care Team Providers Care Natural Foods Clerk Name Role Phone Ebony Sharp MD PCP Reason for Visit * Reason Comments Follow-up 6 months Encounter Details Care Team Description Date Type Department Ebony Sharp MD [address] [facility] [address] [place] [address] SASHA on CPAP (Primary Dx); COPD exacerbation (HCC); Hyperlipidemia, unspecified hyperlipidemia type; Benign essential HTN; Type 2 diabetes mellitus with hyperglycemia, 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); Routine adult health maintenance; Need for hepatitis C screening test 01/06/2018 Office Visit [facility] [address] [facility] [address] [place] [address] Social History Date Tobacco Use [...]
--- OUTSIDE RECORDS SUMMARY | 2020-03-12 09:14 | XMS REPORT | Encounter Summary ---
Author Author [facility] Organization [facility] Address Unknown Phone Unavailable Care Team Providers Care Security Representative Name Role Phone Ebony Sharp MD PCP Encounter Details Care Team Description Date Type Department Adelaida Olivas MD [address] [facility] [address] [place] [address] 03/24/2018 [facility] [address] [facility] [address] [place], [place] [address] Social History Date Tobacco Use Types Packs/Day [...] knows s he will need to come knot picker cloth the RX. Please call her when it [...] CDT Influenza 08/30/2017 08/30/2019 08/30/2019 1:09 PM MANAGER OFFICE Influenza - Rule Out 08/30/2019 08/31/2019 09/17/2019 8:17 AM MANAGER OFFICE RSV 08/31/2019 documented as of this encounter
--- OUTSIDE RECORDS SUMMARY | 2020-03-12 09:14 | XMS REPORT | Encounter Summary ---
Author Author [facility] Address Unknown Phone Unavailable Care Team Providers Care Supervisor Soldering Name Role Phone Ebony Sharp MD PCP Encounter Details Care Team Description Date Type Department Ebony Sharp MD [address] [facility] [address] [place] [address] Hyperlipidemia, unspecified hyperlipidem ia type; Type 2 diabetes mellitus with hyperglycemia, 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); Need for hepatitis C screening test; Routine adult health maintenance 01/06/2018 Lab [facility] [address] [facility] [address] [place], [place] [address] Social History Date Tobacco Use Types Packs/Day [...]
--- OUTSIDE RECORDS SUMMARY | 2020-03-12 09:14 | XMS REPORT | Encounter Summary ---
Author Author [facility] Organization [facility] Address Unknown Phone Unavailable Care Team Providers Care Transistor Tester Name Role Phone Ebony Sharp MD PCP Encounter Details Care Team Description Date Type Department Adelaida Olivas MD [address] [facility] [address] [place] [address] 02/18/2018 [facility] [address] [facility] [address] [place], [place] [id number] Social History Date Tobacco Use Types Packs/Day [...] Call Additional Follow-up Details: faxed completed at 8014 Additional Follow-up by: Gege Avendano on February 22, 2018 3:12 PM documented in this encounter Plan of Treatment Not on filedocumented as of this encounter Visit Diagnoses Not on filedocumented in this encounter Additional Health Concerns Last Indicated Resolved Time Infection Onset Date 08/30/2017 04/19/2018 12:13 PM CDT Influenza 08/30/2017 08/30/2019 08/30/2019 1:09 PM POWER AND RECOVERY SUPERINTENDENT Influenza - Rule Out 08/30/2019 08/31/2019 09/17/2019 8:17 AM POWER AND RECOVERY SUPERINTENDENT RSV 08/31/2019 documented as of this encounter
--- OUTSIDE RECORDS SUMMARY | 2020-03-12 09:14 | XMS REPORT | Encounter Summary ---
Author Author [facility] Organization [facility] Address Unknown Phone Unavailable Care Team Providers Care Community Health Navigator Name Role Phone Ebony Sharp MD PCP Encounter Details Care Team Description Date Type Department Ebony Sharp MD [address] [facility] [address] [place], [place] [id number] Encounter for hepatitis C screening test for low risk patient; Hyperlipidemia, unspecified hyperlipidemia type; Subclinical hyperthyroidism; Type 2 diabetes mellitus with hyperglycemia, 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) 04/07/2018 Lab [facility] Primar [facility] Care - [place] [address] [facility] [address] [place], [place] [id number] Social History Date Tobacco Use Types Packs/Day [...] C PCR Not Detected Not Detected IU/mL [facility] Hepatitis C PCR Not Detected Not Detected LOG [facility] Log [facility] LABORATORIES Specimen Blood Performing Organization Address City/State/Zipcode Ph one Number [address] [address] LABORATORIES * Comprehensive Metabolic Panel (04/07/2018 3:03 PM CDT) Sodium 138 133 - 147 MEQ/L [facility] Potassium 4.1 3.5 - 5.3 MEQ/L [facility] Chloride 98 96 - 112 MEQ/L [facility] Carbon Dioxide 34 (H) 20 - 32 MEQ/L [facility] Anion Gap 6 5 - 17 [facility] Calcium 9.2 8.4 - 10.5 mg/dL [facility] Glucose 128 (H) 70 - 100 mg/dL [facility] Protein Total 7.8 6.0 - 8.2 g/dL [facility] Serum [facility] Albumin 4.2 3.5 - 5.0 g/dL [facility] Alkaline 88 42 - 140 IU/L [facility] Phosphatase [facility] Alanine 27Comment: ALT reference range 0 - 34 IU/L [facility] Aminotransfer changed on 03-01-2018 REGIONAL e LABORATORIES Aspartate 31 15 - 46 IU/L [facility] Bilirubin Total 0.3 0.2 - 1.3 mg/dL [facility] Blood Urea 19 7 - 26 mg/dL [facility] Nitrogen [facility] Creatinine 0.7 0.4 - 1.1 mg/dL [facility] eGFR Female AA 101 60 - 200 [facility] Comment: REGIONAL Chronic Kidney Disease less LABORATORIES than 60 mL/min/1.73 sq.m Kidney failure less than 15 mL/min/1.73 sq.m eGFR Female 84 60 - 200 [facility] Non-AA Comment: REGIONAL Chronic Kidney Disease less LABORATORIES than 60 mL/min/1.73 sq.m Kidney failure less than 15 mL/min/1.73 sq.m Specimen Blood Performing Organization Address City/State/Zipcode Ph one Number [facility] [address] [place] [address] LABORATORIES * T4 Free (04/07/2018 3:03 PM CDT) T4 Free 1.2 0.8 - 2.2 ng/dL [facility] Specimen Blood Performing Organization Address [facility] one Number [address] [address] LABORATORIES * Thyroid Stimulating Hormone (04/07/2018 3:03 PM CDT) Thyroid 0.09 (L) 0.47 - 4.68 uIU/mL [facility] Hormone LABORATORIES Specimen Blood Performing Organization Address [facility] one Number [address] [address] LABORATORIES * Hemoglobin A1C (04/07/2018 3:03 PM CDT) Pathologist [facility] Hemoglobin A1C 8.2 (H) 4.0 - 5.6 % [facility] Comment: REGIONAL Non-diabetic 4.0 - LABORATORIES 5.6 % Prediabetes 5.7 - 6.4 % Diabetes >= 6.5 % Specimen Blood Performing Organization Address [facility] one Number [address] [address] LABORATORIES * Lipid Panel (04/07/2018 3:03 PM CDT) Cholesterol 244 (H) 100 - 200 mg/dL [facility] HDL Cholesterol 59 40 - 110 mg/dL [facility] Non-HDL 185 (H) 0 - 130 mg/dL [facility] Triglycerides 142 0 - 150 mg/dL [facility] LDL Cholesterol 157 (H) 0 - 99 mg/dL [facility] Cholesterol/HDL 4.1 0.0 - 4.5 [facility] LABORATORIES Specimen Blood Performing Organization Address [facility] one Number [address] [address] LABORATORIES * Hepatitis C Antibody (04/07/2018 3:03 PM CDT) Pathologist [facility] Hepatitis C Ab Reactive (A) Non-reactive [facility] SCO Ratio 3.89Comment: S/CO ratio <10.0 [facility] may indicate a false positive REGIONAL HCV antibody, especially in LABORATORIES low risk populations. Confirmation by HCV PCR is recommended. Contact Client Services. Specimen Blood Performing Organization Address City/State/Zipcode Ph one Number [place] [phone] [place] [address] LABORATORIES documented in this encounter Visit Diagnoses [...]
--- OUTSIDE RECORDS SUMMARY | 2020-03-12 09:14 | XMS REPORT | Encounter Summary ---
Author Author [facility] Organization [facility] Address Unknown Phone Unavailable Care Team Providers Care Synthetic Cloth Binding Cutter Name Role Phone Ebony Sharp MD PCP Encounter Details Care Team Description Date Type Department Ebony Sharp MD [address] [facility] [address] [place], [place] [id number] 12/07/2017 Documentation [facility] Primar y [facility] [address] [facility] [address] [place], [place] [address] Social History Date Tobacco Use Types Packs/Day [...]
--- OUTSIDE RECORDS SUMMARY | 2020-03-12 09:14 | XMS REPORT | Encounter Summary ---
Author Author [facility] Organization [facility] Address Unknown Phone Unavailable Care Team Providers Care Tie Presser Name Role Phone Ebony Sharp MD PCP Encounter Details Care Team Description Date Type Department [place] [place] [facility] 02/10/2018 Hist-Other [facility] [address] [place] [address] Social History Date Tobacco Use Types Packs/Day [...] Performing Organization Address City/State/Zipcode Ph one Number [place] documented in this encounter Visit Diagnoses Not on filedocumented in this encounter Additional Health Concerns Last Indicated Resolved Time Infection Onset Date 08/30/2017 04/19/2018 12:13 PM CDT Influenza 08/30/2017 documented as of this encounter
--- OUTSIDE RECORDS SUMMARY | 2020-03-12 09:14 | XMS REPORT | Encounter Summary ---
Author Author [facility] Organization [facility] Address Unknown Phone Unavailable Care Team Providers Care Technical Support Technician Name Role Phone Ebony Sharp MD PCP Encounter Details Care Team Description Date Type Department Adelaida Olivas MD [address] [facility] [address] [place] [address] 12/17/2017 [facility]phone [facility] [address] [facility] [address] [place], [place] [address] Social History Date Tobacco Use Types Packs/Day [...] No one has called her. She uses [facility] [address] Call taken by: Aline Joy on December 17, 2017 3:52 PM Follow-up for Phone Call Follow-up Details: left a message sent medication to [facility] on [address] Follow-up by: Alice Mello on December 17, 2017 4:41 PM Prescriptions: TYLENOL WITH CODEINE #4 300-60 MG ORAL TABLET (ACETAMINOPHEN-CODEINE) 1-2 tabs p o q 4-6 hours prn #30 Tablet x 0 Entered by: Alice Mello Authorized by: Adelaida Olivas MD Signed by: Alice Mello on 12/17/2017 Method used: Faxed to ... [facility]* (retail) [address] [place] [address] Ph: [phone] Fax: [phone] RxID: [id number] documented in this encounter Plan of Treatment Not on filedocumented as of this encounter Visit Diagnoses Not on filedocumented in this encounter Additional Health Concerns Last Indicated Resolved Time Infection Onset Date 08/30/2017 04/19/2018 12:13 PM CDT Influenza 08/30/2017 08/30/2019 08/30/2019 1:09 PM SUPERVISOR WASH HOUSE Influenza - Rule Out 08/30/2019 08/31/2019 09/17/2019 8:17 AM SUPERVISOR WASH HOUSE RSV 08/31/2019 documented as of this encounter
--- OUTSIDE RECORDS SUMMARY | 2020-03-12 09:14 | XMS REPORT | Encounter Summary ---
Author Author [facility] Organization [facility] Address Unknown Phone Unavailable Care Team Providers Care Maintenance Trainer Name Role Phone Ebony Sharp MD PCP Encounter Details Care Team Description Date Type Department Adelaida Olivas MD [address] [facility] [address] [place] [address] 03/10/2018 [facility] [address] [facility] [address] [place] [address] Social History Date Tobacco Use [...] Tylenol #4. P lease call back at [phone] Call taken by: Kate Washington on March 10, 2018 11:47 AM Follow-up for Phone Call Follow-up Details: Patient is at service desk director stating pharmacy never received Escr ipt. She [...] used: Print then Give to Patient RxID: [id number] documented in this encounter Plan of Treatment Not on filedocumented as of this encounter Visit Diagnoses Not on filedocumented in this encounter Additional Health Concerns Last Indicated Resolved Time Infection Onset Date 08/30/2017 04/19/2018 12:13 PM CDT Influenza 08/30/2017 08/30/2019 08/30/2019 1:09 PM BACK DIGGER OPERATOR Influenza - Rule Out 08/30/2019 08/31/2019 09/17/2019 8:17 AM BACK DIGGER OPERATOR RSV 08/31/2019 documented as of this encounter
--- OUTSIDE RECORDS SUMMARY | 2020-03-12 09:14 | XMS REPORT | Encounter Summary ---
Author Author [facility] Organization [facility] Address Unknown Phone Unavailable Care Team Providers Care Plastic Bubble Packer Name Role Phone Ebony Sharp MD PCP Encounter Details Care Team Description Date Type Department Adelaida Olivas MD [address] [facility] [address] [place], [place] [address] 02/10/2018 Hist-Transcript [facility] ion Encounter Specialists [address] [facility] [address] [place], [place] [phone] Social History Date Tobacco Use Types Packs/Day [...] spe cific complaints. Impression LEFT ANKLE PAIN ([id number]) CONTRACTURE OF ANKLE JOINT LEFT ([id number]) LEFT ANKLE PRIMARY OSTEOARTHRITIS ([id number]) Status post ankle fusion, currently doing well. [...] 1 po q daily VITAMIN D (ERGOCALCIFEROL) 25248 UNIT ORAL CAPSULE (ERGOCALCIFEROL) 1 po q [...] used: Print then Give to Patient RxID: [id number] Review of Systems General: Complains of fatigue. [...] CDT Influenza 08/30/2017 08/30/2019 08/30/2019 1:09 PM FIELD SERVICES MANAGER Influenza - Rule Out 08/30/2019 08/31/2019 09/17/2019 8:17 AM FIELD SERVICES MANAGER RSV 08/31/2019 documented as of this encounter
--- OUTSIDE RECORDS SUMMARY | 2020-03-12 09:15 | XMS REPORT | Encounter Summary ---
Author Author [facility] Organization [facility] Address Unknown Phone Unavailable Care Team Providers Care Computer Security Specialist Name Role Phone Ebony Sharp MD PCP Reason for Visit * Reason Comments Dental Pain broke tooth wednesday night wh ile in ER SLE, being treated for flu A, doesn't have a dentist Encounter Details Care Team Description Date Type Department Francoise Baker NP [address] [place], [place] [id number] Dental infection (Primary Dx) 09/02/2017 Office Visit [facility] [address] [facility] [address] [place], [place] [phone] Social History Date Tobacco Use Types Packs/Day [...] Francoise Baker NP - 09/02/2017 9:01 AM RETAIL CHAIN STORE AREA SUPERVISOR Dental Abscess An abscess is a pocket [...] can buy oil of cloves a t [employer]. Some pharmacies carry an fkbq-vus-ulzkobc "toothache kit." This co ntains a paste [...] from the tooth Difficulty swallowing or breathing 4926-9730 [employer]. [address] [place] [address], [place], [place] [address]. All rights reserved. This information is not intended as a substitute for pro fessional medical care. Always follow your healthcare professional's instruction s. [place] CHAIN STORE AREA SUPERVISOR documented in this encounter Progress Notes * Francoise Baker NP - 09/02/2017 8:40 AM RETAIL CHAIN STORE AREA SUPERVISOR Patient ID: Caren Patten is a 67 [...] in nightly. 10 mL 0 insulin syringe (Linktone ULTRA-FINE) 0.3 mL 31 gauge x 5/16 [...] Re ctal Q6H PRN Lilibeth Redmond RN GASOLINE FINISHER [DISCONTINUED] acetaminophen (TYLENOL) tablet 325-650 mg 325-650 mg Oral Q6 H PRN Lilibeth Redmond RN GASOLINE FINISHER [DISCONTINUED] aluminum-magnesium hydroxide-simethicone (MAALOX PLUS) 400-40 0-40 mg/5 mL suspension 15 mL 15 mL Oral Q4H PRN Lilibeth Redmond RN GASOLINE FINISHER [DISCONTINUED] amitriptyline (ELAVIL) tablet 25 mg 25 mg Oral Nightly Fiorella Redmond RN GASOLINE FINISHER 25 mg at 08/31/17 2134 [DISCONTINUED] amLODIPine (NORVASC) tablet 5 mg 5 mg Oral Daily Lilibeth sin RN GASOLINE FINISHER 5 mg at 09/01/17 0850 [DISCONTINUED] benzocaine-menthol (CEPACOL) lozenge 1 lozenge 1 lozenge Buc rosalind Q1H PRN Lilibeth Redmond RN GASOLINE FINISHER [DISCONTINUED] benzonatate (TESSALON) capsule 100 mg 100 mg Oral TID PRN Ashley Redmond RN GASOLINE FINISHER 100 mg at 08/31/17 0358 [DISCONTINUED] bisacodyl (DULCOLAX) suppository 10 mg 10 mg Rectal Daily NC N Lilibeth Redmond RN GASOLINE FINISHER [DISCONTINUED] celecoxib (CeleBREX) capsule 200 mg 200 mg Oral Daily Santa Julian MD 200 mg at 09/01/17 0850 [DISCONTINUED] citalopram (CeleXA) tablet 20 mg 20 mg Oral Daily Lilibeth lucas RN GASOLINE FINISHER 20 mg at 09/01/17 0850 [DISCONTINUED] dextrose 10% (D10W) bolus 125-250 mL 125-250 mL Intravenous PRN Lilibeth Redmond RN GASOLINE FINISHER [DISCONTINUED] dextrose 50% (D50W) 50 % injection 25-50 mL 25-50 mL Intrave nous PRN Lilibeth Redmond RN GASOLINE FINISHER [DISCONTINUED] dextrose 50% (D50W) syringe 25-50 mL 25-50 mL Intravenous NC N Lilibeth Redmond RN GASOLINE FINISHER [DISCONTINUED] docusate sodium (COLACE) capsule 100 mg 100 mg Oral BID PRN Lilibeth Redmond RN GASOLINE FINISHER [DISCONTINUED] fluticasone-vilanterol (BREO ELLIPTA) 200-25 mcg/actuation in haler 1 puff 1 puff Inhalation Daily Lilibeth Redmond RN GASOLINE FINISHER Stopped at 06/09 0900 [DISCONTINUED] gabapentin (NEURONTIN) capsule 300 mg 300 mg Oral TID Lilibeth Redmond RN GASOLINE FINISHER 300 mg at 09/01/17 0850 [DISCONTINUED] glucagon (GLUCAGEN) injection 1 mg 1 mg Intramuscular PRN Ramirez sana Redmond RN GASOLINE FINISHER [DISCONTINUED] glucagon (GLUCAGEN) injection 1 mg 1 mg Subcutaneous PRN Antoinette Redmond RN GASOLINE FINISHER [DISCONTINUED] guaiFENesin (MUCINEX) 12 hr tablet 1,200 mg 1,200 mg Oral BI D Lilibeth Redmond RN GASOLINE FINISHER 1,200 mg at 09/01/17 0850 [DISCONTINUED] heparin (porcine) 5,000 unit/mL injection 5,000 Units 5,000 Units Subcutaneous Q8H Lilibeth Redmond RN GASOLINE FINISHER 5,000 Units at 09/01/17 0545 [DISCONTINUED] insulin [...] mL Inhalation 4x daily Lilibeth Redmond RN GASOLINE FINISHER Stopped at 1600 [DISCONTINUED] ipratropium-albuterol (DUO-NEB) 0.5-3 mg/3 mL nebulizer solut ion 3 mL 3 mL Inhalation PRN Preethi Zavala MD 3 mL at 08/31/17 0432 [DISCONTINUED] metaxalone (SKELAXIN) tablet 800 mg 800 mg Oral Nightly Baltazar Redmond RN GASOLINE FINISHER 800 mg at 08/31/173 [DISCONTINUED] metoprolol tartrate (LOPRESSOR) tablet 100 mg 100 mg Oral BI D Lilibeth Redmond RN GASOLINE FINISHER 100 mg at 09/01/17 0849 [DISCONTINUED] miconazole nitrate (ALOE VESTA) 2 % ointment Topical TID NC N Lilibeth Redmond RN GASOLINE FINISHER [DISCONTINUED] ondansetron (ZOFRAN) injection 4 mg 4 mg Intravenous Q6H PRN Omar Vásquez MD [DISCONTINUED] oseltamivir (TAMIFLU) capsule 75 mg 75 mg Oral BID Ralf borden MD 75 mg at 09/01/17 0850 [DISCONTINUED] polyethylene glycol (GLYCOLAX) packet 17 g 17 g Oral Daily P ADAM Redmond RN GASOLINE FINISHER [DISCONTINUED] pravastatin (PRAVACHOL) tablet 40 mg 40 mg Oral Nightly Baltazar Redmond RN GASOLINE FINISHER 40 mg at 08/31/173 [DISCONTINUED] predniSONE (DELTASONE) tablet 40 mg 40 mg Oral Daily Maikel Gasca MD 40 mg at 09/01/17 0850 [DISCONTINUED] promethazine-codeine (PHENERGAN with CODEINE) 6.25-10 mg/5 mL syrup 5 mL 5 mL Oral Q4H PRN Preethi Zavala MD 5 mL at 09/01/17 0849 [DISCONTINUED] sodium chloride (OCEAN) 0.65 % nasal spray 1 spray 1 spray E ach Nare PRN Lilibeth Redmond RN GASOLINE FINISHER [DISCONTINUED] traMADol (ULTRAM) tablet 50 mg 50 [...] can buy oil of cloves a t [employer]. Some pharmacies carry an eqbz-hko-csegiap "toothache kit." This co ntains a paste [...] from the tooth Difficulty swallowing or breathing [id number] [employer]. [address] [place] [address] 7. All rights reserved. This information is not intended as a substitute for pro fessional medical care. Always follow your healthcare professional's instruction s. [place] CHAIN STORE AREA SUPERVISOR documented in this encounter Plan of Treatment Not on filedocumented as of this encounter Visit Diagnoses Diagnosis Dental infection documented in this encounter Additional Health Concerns Last Indicated Resolved Time Infection Onset Date 08/30/2017 04/19/2018 12:13 PM CDT Influenza 08/30/2017 documented as of this encounter
--- OUTSIDE RECORDS SUMMARY | 2020-03-12 09:15 | XMS REPORT | Encounter Summary ---
Author Author [facility] Organization [facility] Address Unknown Phone Unavailable Care Team Providers Care Staff Registered Nurse Name Role Phone Ebony Sharp MD PCP Encounter Details Care Team Description Date Type Department Ebony Sharp MD [address] [facility] [address] [place], [place] [id number] 09/07/2017 Documentation [facility] Primar y [facility] [address] [facility] [address] [place], [place] [id number] Social History Date Tobacco Use Types Packs/Day [...]
--- OUTSIDE RECORDS SUMMARY | 2020-03-12 09:15 | XMS REPORT | Encounter Summary ---
Author Author [facility] Organization [facility] Address Unknown Phone Unavailable Care Team Providers Care Traffic Manager Name Role Phone Ebony Sharp MD PCP Reason for Visit * Reason Comments Other Encounter Details Care Team Description Date Type Department Ebony Sharp MD [address] [facility] [address] [place], [place] [phone] Other 11/20/2017 Refill [facility] Prim[facility] - [facility] [address] [facility] [address] [place], [place] [phone] Social History Date Tobacco Use Types Packs/Day [...] CDT Influenza 08/30/2017 08/30/2019 08/30/2019 1:09 PM IMPLEMENTATION CONSULTANT Influenza - Rule Out 08/30/2019 08/31/2019 09/17/2019 8:17 AM IMPLEMENTATION CONSULTANT RSV 08/31/2019 documented as of this encounter
--- OUTSIDE RECORDS SUMMARY | 2020-03-12 09:15 | XMS REPORT | Encounter Summary ---
Author Author [facility] Organization [facility] Address Unknown Phone Unavailable Care Team Providers Care Guest Services Agent Name Role Phone Ebony Sharp MD PCP Encounter Details Care Team Description Date Type Department [place], [facility] [place] 10/25/2017 Hist-Other [facility] [address] [place] [address] Social History Date Tobacco Use Types Packs/Day [...] XR ANKLE LEFT Routine 10/25/2017 1:35 PM EARLY YEARS TEACHER documented in this encounter Results * XR Ankle left (10/25/2017 1:35 PM EARLY YEARS TEACHER) Specimen Performing Organization Address City/State/Zipcode Ph one Number [email or web address] documented in this encounter Visit Diagnoses Not on filedocumented in this encounter Additional Health Concerns Last Indicated Resolved Time Infection Onset Date 08/30/2017 04/19/2018 12:13 PM CDT Influenza 08/30/2017 documented as of this encounter
--- OUTSIDE RECORDS SUMMARY | 2020-03-12 09:15 | XMS REPORT | Encounter Summary ---
Author Author [facility] Organization [facility] Address Unknown Phone Unavailable Care Team Providers Care Biomedical Engineering Director Name Role Phone Ebony Sharp MD PCP Encounter Details Care Team Description Date Type Department Adelaida Olivas MD [address] [facility] [address] [place], [place] [phone] 10/25/2017 Hist-Transcript [facility] Encounter Specialists [address] [facility] [address] [place], [place] [phone] Social History Date Tobacco Use Types Packs/Day [...] Adelaida Olivas MD - 10/25/2017 1:16 PM EXECUTIVE OFFICER SPECIAL WARFARE TEAM - History of Present Illness Presents today [...] wound heali ng. Impression LEFT ANKLE PAIN (VXE75-P30.572) CONTRACTURE OF ANKLE JOINT LEFT (RQS48-I97.572) LEFT ANKLE PRIMARY OSTEOARTHRITIS (RNT57-P45.072) Status post left ankle arthrodesis. Plan At [...] 1 po q daily VITAMIN D (ERGOCALCIFEROL) 26419 UNIT ORAL CAPSULE (ERGOCALCIFEROL) 1 po q [...] used: Print then Give to Patient RxID: [id number] SKELAXIN 800 MG ORAL TABLET (METAXALONE) one, po, at bedtime as needed for muscl e spasm #90 x 0 Entered by: Rg Lopez Authorized by: Adelaida Olivas MD Signed by: Rg Lopez on 10/25/2017 Method used: Print then Give to Patient RxID: [id number] NORCO 5-325 MG TABS (HYDROCODONE-ACETAMINOPHEN) 4 tablets daily PO #120 Undefin e x 0 Entered by: Sharona Scott Authorized by: Adelaida Olivas MD Signed by: Sharona Scott on 10/25/2017 Method used: Print then Give to Patient RxID: [id number] SKELAXIN 800 MG ORAL TABLET (METAXALONE) one, po, at bedtime as needed for muscl e spasm #90 x 0 Entered by: Sharona Scott Authorized by: Adelaida Olivas MD Signed by: Sharona Scott on 10/25/2017 Method used: Print then Give to Patient RxID: [id number] NORCO 5-325 MG TABS (HYDROCODONE-ACETAMINOPHEN) 4 tablets daily PO #120 Undefin e x 0 Entered by: Sharona Scott Authorized by: Adelaida Olivas MD Signed by: Sharona Scott on 10/25/2017 Method used: Print then Give to Patient RxID: [id number] SKELAXIN 800 MG ORAL TABLET (METAXALONE) one, po, at bedtime as needed for muscl e spasm #90 x 0 Entered by: Sharona Scott Authorized by: Adelaida Olivas MD Signed by: Sharona Scott on 10/25/2017 Method used: Print then Give to Patient RxID: [id number] NORCO 5-325 MG TABS (HYDROCODONE-ACETAMINOPHEN) 4 tablets daily PO #120 Undefin e x 0 Entered by: Sharona Scott Authorized by: Adelaida Olivas MD Signed by: Sharona Scott on 10/25/2017 Method used: Print then Give to Patient RxID: [id number] Vital Signs Ht: 62 in. Wt: 236 [...] CDT Influenza 08/30/2017 08/30/2019 08/30/2019 1:09 PM EXECUTIVE OFFICER SPECIAL WARFARE TEAM Influenza - Rule Out 08/30/2019 08/31/2019 09/17/2019 8:17 AM EXECUTIVE OFFICER SPECIAL WARFARE TEAM RSV 08/31/2019 documented as of this encounter
--- OUTSIDE RECORDS SUMMARY | 2020-03-12 09:15 | XMS REPORT | Encounter Summary ---
Author Author [facility] Organization [facility] Address Unknown Phone Unavailable Care Team Providers Care Morals Squad Police Officer Name Role Phone Ebony Sharp MD PCP Encounter Details Care Team Description Date Type Department Adelaida Olivas MD [address] [facility] [address] [place], [place] [phone] 11/18/2017 Hist[facility]cript [facility] En[facility] [address] [facility] [address] [place], [place] [phone] Social History Date Tobacco Use Types Packs/Day [...] is otherwise intact. Impression CHRONIC PAIN SYNDROME (PXK54-W60.4) LEFT ANKLE PAIN ([id number]-N43.572) Pain, status post tibiotalar fusion. Plan At [...] 1 po q daily VITAMIN D (ERGOCALCIFEROL) 26675 UNIT ORAL CAPSULE (ERGOCALCIFEROL) 1 po q [...] on 11/18/2017 Method used: Faxed to ... [facility]* (retail) [address] [place] [address] Ph: [phone] Fax: [phone] RxID: [id number] TYLENOL WITH CODEINE #4 300-60 MG TABS (ACETAMINOPHEN-CODEINE) 1-2 PO Q 4-6 hour s PRN Pain #90[Unspecified] x 0 Entered and Authorized by: Adelaida Olivas MD Signed by: Adelaida Olivas MD on 11/18/2017 Method used: [facility]ically to [facility]* (retail) [address] [place] [address] Ph: [phone] Fax: [phone] RxID: [id number] Vital Signs Radiographs: X-ray examination, AP, lateral, [...] CDT Influenza 08/30/2017 08/30/2019 08/30/2019 1:09 PM UPSETTER Influenza - Rule Out 08/30/2019 08/31/2019 09/17/2019 8:17 AM UPSETTER RSV 08/31/2019 documented as of this encounter
--- OUTSIDE RECORDS SUMMARY | 2020-03-12 09:15 | XMS REPORT | Encounter Summary ---
Author Author [facility] Organization [facility] Address Unknown Phone Unavailable Care Team Providers Care General Assignment Reporter Name Role Phone Ebony Sharp MD PCP Encounter Details Care Team Description Date Type Department Adelaida Olivas MD [address] [facility] [address] [place] [address] 10/14/2017 [facility] [address] [facility] [address] [place], [place] [phone] Social History Date Tobacco Use Types Packs/Day [...] Adelaida Olivas MD - 10/14/2017 9:03 AM DYNAMITE PACKING MACHINE FEEDER Phone Note Call from Pharmacy Summary of call: [facility] [phone], would like a clarification on the script for lidoderm patch. Call taken by: Lilian Greenwood on October 14, 2017 9:04 AM Follow-up for Phone Call Follow-up Details: I spoke with the staff of [facility] and they stated the lidoderm pa tches needed prior auth. PA information submitted on covermymeds Follow-up by: Rg Lopez on October 14, 2017 11:02 AM Additional Follow-up for Phone Call Additional Follow-up Details: Patient was seen in office today. Additional Follow-up by: Rg Lopez on October 25, 2017 1:23 PM MITE PACKING MACHINE FEEDER documented in this encounter Plan of Treatment Not on filedocumented as of this encounter Visit Diagnoses Not on filedocumented in this encounter Additional Health Concerns Last Indicated Resolved Time Infection Onset Date 08/30/2017 04/19/2018 12:13 PM CDT Influenza 08/30/2017 08/30/2019 08/30/2019 1:09 PM DYNAMITE PACKING MACHINE FEEDER Influenza - Rule Out 08/30/2019 08/31/2019 09/17/2019 8:17 AM DYNAMITE PACKING MACHINE FEEDER RSV 08/31/2019 documented as of this encounter
--- OUTSIDE RECORDS SUMMARY | 2020-03-12 09:15 | XMS REPORT | Encounter Summary ---
Author Author [facility] Organization [facility] Address Unknown Phone Unavailable Care Team Providers Care Solar Photovoltaic Designer Name Role Phone Ebony Sharp MD PCP Encounter Details Care Team Description Date Type Department Ebony Sharp MD [address] [facility] [address] [place] [address] 09/03/2017 Telephone [facility] [address] [facility] [address] [place] [address] Social History Date Tobacco Use [...] Sheryl Joaquin MA - 09/03/2017 9:29 AM CONTROL ANALYST Spoke with Patient and told her cyclobenzaprine was denied. Told her we could se nd it to [facility] since its on the $4.00 lists and patient declined stating she's not going to take it anymore. I told her if she changes her mind to please let us know and we can send it to [facility]. Patient say OK ROL ANALYST documented in this encounter Plan of Treatment Not on filedocumented as of this encounter Visit Diagnoses Not on filedocumented in this encounter Additional Health Concerns Last Indicated Resolved Time Infection Onset Date 08/30/2017 04/19/2018 12:13 PM CDT Influenza 08/30/2017 documented as of this encounter
--- OUTSIDE RECORDS SUMMARY | 2020-03-12 09:15 | XMS REPORT | Encounter Summary ---
Author Author [facility] Organization [facility] Address Unknown Phone Unavailable Care Team Providers Care Theatrical Variety Agent Name Role Phone Ebony Sharp MD PCP Reason for Visit * Reason Comments Follow-up Margot left ankle, she had a fall on 10/16/17 and reinjured the ankle she had surgery on 10/22/17 lds Encounter Details Care Team Description Date Type Department Adelaida Olivas MD [address] [facility] [address] [place], [place] [phone] 10/25/2017 Hist-Appointmen [facility] [address] [facility] [address] [place], [place] [address] Social History Date Tobacco Use Types Packs/Day [...]
--- OUTSIDE RECORDS SUMMARY | 2020-03-12 09:15 | XMS REPORT | Encounter Summary ---
Author Author [facility] Organization [facility] Address Unknown Phone Unavailable Care Team Providers Care Historical Interpreter Name Role Phone Ebony Sharp MD PCP Encounter Details Care Team Description Date Type Department [place], [facility] 11/18/2017 Hist-Other [facility] Out[facility] [address] [place] [address] Social History Date Tobacco Use Types Packs/Day [...]
--- OUTSIDE RECORDS SUMMARY | 2020-03-12 09:15 | XMS REPORT | Encounter Summary ---
Author Author [facility] Organization [facility] Address Unknown Phone Unavailable Care Team Providers Care Drawer Liner Name Role Phone Ebony Sharp MD PCP Reason for Visit * Reason Comments Shortness of Breath Increased shortness of air over the last two weeks. Chest pain, sweating, and nausea today. Encounter Details Care Team Description Date Type Department Gladis Artaega MD [address] [facility] [address] [place], [place] [id number] Dyspnea, unspecified type (Primary Dx); Chronic obstructive pulmonary disease, unspecified COPD type (HCC) 11/18/2017 Emergency [facility] [address] [place], [place] [address] Social History Date Tobacco Use Types Packs/Day [...] Chronic Obstructive Pulmonary Disease (COPD), Discharge Instructions (Stateless) documented in this encounter Medications at [...] MD - 11/18/2017 3:58 PM CDT 11/18/2017 [facility] History Chief Complaint Patient presents with Shortness [...] can "hear bubbling in her chest." Mariaa smrat also complains of a vague pain in [...] ANKLE ARTHRODESIS; Surgeon: Adelaida Olivas MD; Location: [facility] Main OR; Service: [...] ED Disposition Discharge Gladis Arteaga MD 11/18/17 7363 documented in this encounter Plan of Treatment [...] 4:25 PM CDT) NTproBNP 55 pg/mL [facility] Comment: ALBERT AGUSTIN NT-proBNP Reference Ranges: [facility] <50 yr <450 pg/mL 50-75 yr <900 pg/mL >75 yr <1800 pg/mL A cutoff value of 1200 pg/mL is recommended in patients 50 to 70 years of age with a GFR between 30 and 60. NT-proBNP is unreliable in patients with GFR <30. Specimen Blood Performing Organization Address City/State/Zipcode Ph one Number [facility] [address] [place], [place] [address] [facility] MA[facility]O AGUSTINS [address] [facility] [place] [address], [place] [phone] [facility] * Troponin 0 hr (11/18/2017 4:25 PM CDT) [facility] Troponin <0.01 0.00 - 0.03 ng/mL [facility] Comment: ALBERT SWANSON Troponin Value [facility] Interpretation 0.00 - 0.03 Healthy 0.04 - 0.12 Increased Cardiac Risk >0.12 Myocardial Infarction Troponin may not become elevated until 6 to 8 hours after onset of symptoms. Specimen Blood Performing Organization Address City/State/Zipcode Ph one Number [facility] [address] [place] [address] [facility] [address] [place] [address], [facility] * CBC and Diff (manual diff if necessary) (11/18/2017 4:25 PM CDT) [facility] WBC 8.81 4.00 - 11.00 TH/uL [facility] AGUSTINS [facility] RBC 4.36 4.00 - 5.00 MIL/uL KATE Shazia ZAZUETAS [facility] Hemoglobin 14.3 12.0 - 15.0 g/dL [facility] Hematocrit 42 36 - 45 % MEHUL ZAZUETAS [facility] MCV 97 80 - 99 fL KATEShazia ZAZUETAS [facility] MCH 33 27 - 34 pg KATEShazia ZAZ[facility]ETA'[facility] MCHC 34 32 - 36 % MEHUL ZAZUETAS [facility] RDW 13.5 9.0 - 14.5 % [facility] Platelet Count 173 140 - 400 TH/uL [facility] AG[facility] MPV 9.9 9.4 - 12.3 fL KATE ALBERT ZAZUETAS [facility] % Neutrophils 55 45 - 78 % [facility]Shazia [facility] %Lymphocytes 32 15 - 47 % [facility] %Monocytes 8 0 - 12 % [facility] %Eosinophils 4 0 - 7 % [facility] %Basophils 1 0 - 2 % [facility] # Granulocytes 4.85 1.7 - 6.8 TH/uL [facility] # Lymphocytes 2.83 1.0 - 3.3 TH/uL [facility] ALBERT MARBIN [facility] # Monocytes 0.71 0.2 - 0.9 TH/uL [facility] # Eosinophils 0.37 0.0 - 0.4 TH/uL [facility]ERT [facility] # Basophils 0.05 0.0 - 0.1 TH/uL [facility] ALBERT [facility] Specimen Blood Performing Organization Address City/State/Zipcode Ph one Number [facility] [address] [facility], [place] [id number] [facility] ALBERT MARBINS [address] [place] [facility] [place] [address], [facility] * Comprehensive Metabolic Panel (11/18/2017 4:25 PM CDT) [facility] Sodium 142 133 - 147 MEQ/L [facility] ALBERT [facility] Potassium 4.4 3.5 - 5.3 MEQ/L [facility] ALBERT [facility] Chloride 103 96 - 112 MEQ/L [facility] ALBERT [facility] Carbon Dioxide 29 20 - 32 MEQ/L [facility] Anion Gap 11 5 - 17 [facility] ALBERT [facility] Calcium 9.7 8.4 - 10.5 mg/dL [facility] ALBERT [facility] Glucose 157 (H) 70 - 100 mg/dL [facility] Protein Total 7.9 6.0 - 8.2 g/dL [facility] Serum ALBERT ZAZUETA'S [facility] Albumin 4.3 3.5 - 5.0 g/dL [facility] AL[facility]ERT [facility]A'[facility] Alkaline 108 42 - 140 IU/L [facility] Phosphatase ALBERT ZAZUETA'S [facility] Alanine 41 13 - 69 IU/L [facility] Aminotransferas ALBERT SWANSON e [facility] Aspartate 41Comment: Specimen is 15 - 46 IU/L [facility] Maldonado ZENGS Aminotransferas slightly hemolyzed which may ALBERT OSORIO e elevate the AST result. [facility] Bilirubin Total 0.2 0.2 - 1.3 mg/dL [facility] AL[facility]ERT ZAZUETA'[facility] Blood Urea 15 7 - 26 mg/dL [facility] Nitrogen ALBERT AGUSTINS [facility] Creatinine 0.7 0.4 - 1.1 mg/dL [facility] ALBERT [facility]A'[facility] eGFR Female AA 101 60 - 200 [facility] Comment: ALBERT [facility]UETA'S Chronic Kidney Disease less [facility] than 60 mL/min/1.73 sq.m Kidney failure less than 15 mL/min/1.73 sq.m eGFR Female 84 60 - 200 [facility] Non-AA Comment: ALBERT AGUSTINS Chronic Kidney Disease less [facility] than 60 mL/min/1.73 sq.m Kidney failure less than 15 mL/min/1.73 sq.m Specimen Blood Performing Organization Address City/State/Zipcode Ph one Number [facility] [address] [facility] [place] [address] [facility] [address] [facility] [place] [address], [facility] * XR Chest single view frontal (11/18/2017 4:14 PM CDT) Specimen Impressions Performed At Stable left mid lung subsegmental atelectasis or line ar fibrosis. No new MCKESSON consolidation. ATTESTATION STATEMENT: The Staff Radiologist has personally re viewed the images and dictated, reviewed, or edited the final report. READING SITE: [facility] Narrative Performed At Patient: ISIAH BENÍTEZ Sex#: F # 1950 Jose#: [id number] Location: [facility] SED- Procedure Requested: [id number] XR CHEST SINGLE VIEW FRONTAL Reason for [...] ISIAH BENÍTEZ Sex#: F # 1950 Jose#: [id number] Location: [place] [address] Procedure Requested: [id number] XR CHEST SINGLE VIEW FRONTAL Reason for [...] or edited the final report. READING SITE: [facility] Performing Organization Address City/State/Zipcode Ph one Number L[facility] * Electrocardiogram (ECG) (11/18/2017 3:32 PM CDT) Specimen Narrative Performed At [facility] Test Date: 2017-11-18 Pat Name: ISIAH JACKELIN Department: ERS Room: Gender: Female Escapement Matcher: [id number] : 1950 Requested By: JANICE MORELAND Order Number: [id number] Reading MD: Measurements Intervals [place] Rate: 77 P: 63 LA: 156 QRS: 65 QRSD: 104 T: 53 QT: 404 QTc: 458 Interpretive Statements SINUS RHYTHM Procedure Note Interface, External Ris In - 11/18/2017 3:33 PM CDT [facility] Test Date: 2017-11-18 Pat Name: ISIAH BENÍTEZ Department: ERS Room: Gender: Female Escapement Matcher: [id number] : 1950 Requested By: JANICE MORELAND Order Number: [id number] Reading MD: Measurements Intervals [place] Rate: 77 P: 63 LA: 156 QRS: 65 QRSD: 104 T: 53 QT: 404 QTc: 458 Interpretive Statements SINUS RHYTHM Performing Organization Address City/State/Zipconc Ph one Number ANDREW documented in this encounter Visit Diagnoses Diagnosis Dyspnea, unspecified type Chronic obstructive pulmonary disease, unspecified COPD type (HCC) documented in this encounter Administered Medications Action Date Dose Rate Site Medication Order MAR Action 11/18/2017 4:46 PM CDT 324 mg aspirin chewable tablet 324 mg Given 324 mg, Oral, Once, Ju 11/18/17 at 1607 , For 1 dose, If not given/taken PATTERN MECHANIC and chart., documented in this encounter Additional Health Concerns Last Indicated Resolved Time Infection Onset Date 08/30/2017 04/19/2018 12:13 PM CDT Influenza 08/30/2017 documented as of this encounter
--- OUTSIDE RECORDS SUMMARY | 2020-03-12 09:15 | XMS REPORT | Encounter Summary ---
Author Author [facility] Organization [facility] Address Unknown Phone Unavailable Care Team Providers Care Hourly Sales Staff Name Role Phone Ebony Sharp MD PCP Encounter Details Care Team Description Date Type Department Adelaida Olivas MD [address] [facility] [address] [place] [address] 11/16/2017 [facility] [address] [facility] [address] [place], [place] [address] Social History Date Tobacco Use Types Packs/Day [...] script voicemail requesting refill of h ydrocodone. [phone] Call taken by: Kate Washington on November [...] CDT Influenza 08/30/2017 08/30/2019 08/30/2019 1:09 PM AIRCONDITIONING ENGINEER Influenza - Rule Out 08/30/2019 08/31/2019 09/17/2019 8:17 AM AIRCONDITIONING ENGINEER RSV 08/31/2019 documented as of this encounter
--- OUTSIDE RECORDS SUMMARY | 2020-03-12 09:15 | XMS REPORT | Encounter Summary ---
Author Author [facility] Organization [facility] Address Unknown Phone Unavailable Care Team Providers Care Senior Master Scheduler Name Role Phone Ebony Sharp MD PCP Encounter Details Care Team Description Date Type Department Adelaida Olivas MD [address] [place], [place] [phone] Left ankle pain 10/07/2017 Imaging [facility] Radiol ogy Appointment [address] [place] [address] Social History Date Tobacco Use Types Packs/Day [...] Routine 10/07/2017 Left ankle pain 2:27 PM AMBULATORY NURSE documented in this encounter Results * XR Ankle min 3 views left (10/07/2017 2:27 PM AMBULATORY NURSE) Specimen Impressions Performed At Status post tibiotalar arthrodesis. Alignment remains MCKESSON unchanged. Compression screw and sidepl ate with screws are unchanged in position. Narrative Performed At Patient: ISIAH BENÍTEZ Sex#: F # 1950 Jose#: [id number] Location: XR Procedure Requested: [id number] XR ANKLE MIN 3 VIEWS LEFT Reason for Exam: Left ankle pain Exam Ordered: 10/07/2017 14 17 Exam Date/Time: 10/07/2017 142 7 Begin exam date/time: 10/07/2017 141 7 Reading Site: [facility] Exam: XR ANKLE MIN 3 VIEWS [...] Rad Results In - 10/07/2017 4:36 PM AMBULATORY NURSE Patient: ISIAH BENÍTEZ Sex#: Paulina # 1950 Jose#: [id number] Location: XR Procedure Requested: [id number] XR ANKLE MIN 3 VIEWS LEFT Reason for Exam: Left ankle pain Exam Ordered: 10/07/2017 1417 Exam Date/Time: 10/07/2017 1427 Begin exam date/time: 10/07/2017 1417 Reading Site: [facility] Exam: XR ANKLE MIN 3 VIEWS [...] are unchanged in position. Performing Organization Address City/State/Zipcode Ph one Edgar SIMS documented in this encounter Visit Diagnoses Diagnosis Left ankle pain Pain in joint, ankle and foot documented in this encounter Additional Health Concerns Last Indicated Resolved Time Infection Onset Date 08/30/2017 04/19/2018 12:13 PM CDT Influenza 08/30/2017 documented as of this encounter
--- OUTSIDE RECORDS SUMMARY | 2020-03-12 09:15 | XMS REPORT | Encounter Summary ---
Author Author [facility] Organization [facility] Address Unknown Phone Unavailable Care Team Providers Care Referral Manager Name Role Phone Ebony Sharp MD PCP Reason for Visit * Reason Comments Follow-up eldon/ left ankle/ [id number] kk a LM to notify of BS location Encounter Details Care Team Description Date Type Department Adelaida Olivas MD [address] [facility] [address] [place], [place] [id number] 10/07/2017 Hist[facility]ointmen [facility] [address] [facility] [address] [place], [place] [address] Social History Date Tobacco Use Types Packs/Day [...]
--- OUTSIDE RECORDS SUMMARY | 2020-03-12 09:15 | XMS REPORT | Encounter Summary ---
Author Author [facility] Organization [facility] Address Unknown Phone Unavailable Care Team Providers Care Blending Plant Operator Name Role Phone Ebony Sharp MD PCP Reason for Visit * Reason Comments Hip Pain LEG PAIN NOTED TO RIGHT LEG SHE FELL 2 WEEKS AGO AND NOTED PAIN TO RIGHT SIDE AND DOWN RIGHT LEG FROM HIP. Encounter Details Care Team Description Date Type Department Gege Jeff MD [address] [place] [address] [phone] Pain of right hip joint (Primary Dx) 11/25/2017 Emergency [facility] [address] [place], [place] [id number] Social History Date Tobacco Use Types Packs/Day [...] through Care Everywhere.* Hip, How it Works (Senegalese) * PAIN, UNCERTAIN CAUSE (ACUTE) (TONGAN) * SCIATICA (TONGAN) * R.I.C.E. (Senegalese) documented in this encounter Medications at Time [...] MD - 11/25/2017 10:09 PM CDT 11/25/2017 [facility] History Chief Complaint Patient presents with Hip [...] fx. CT Lumbar Spine reconstructed (Results Pending) [facility] 2316-patient is neurovascularly intact and hemodynamically [...] are not helping. Prescriptions given for #12 [place] and motrin. Patient to follow-up with her [...] HIP JOINT Ebony Sharp MD [address] [facility] [address] [place] [address] Schedule an appointment as soon as possible for a visit [facility] [address] [facility] [facility] [address] Schedule an appointment as soon as possible [...] or edited the final report. READING SITE: [facility] Narrative Performed At Patient: ISIAH BENÍTEZ Sex#: F # 1950 Jose#: [id number] Location: [facility] ED SED-13 Procedure Requested: [id number] US VENOU S DUPLEX LOWER EXTREMITY RIGHT [...] ISIAH BENÍTEZ Sex#: F # 1950 Jose#: [id number] Location: [facility] ED SED-13 Procedure Requested: [id number] US VENOUS DUPLEX LOWER EXTREMITY RIGHT Reason for Exam: leg pain Exam Ordered: 11/25/20178 Exam Date/Time: 11/25/20172306 Begin exam date/time: 11/25/20172248 [...] or edited the final report. READING SITE: [facility] Performing Organization Address City/State/Zipcode Ph one Number LEV[facility] * CT Lumbar Spine reconstructed (11/25/2017 10:43 PM CDT) Specimen Impressions Performed At 1. No acute osseous abnormality of the lumbar spine. [facility] 2. Degenerative changes worst at L3-L4 cause severe spinal canal narrowing at this level. Consider furth er evaluation with lumbar spine MRI if clinically indicated. The findings are in general agreement w ith those in the preliminary report provided by [employer]. READING SITE: [facility]. ATTESTATION STATEMENT: The Staff Radiologist has personally re viewed the images and dictated, reviewed, or edited the final report. Narrative Performed At Patient: ISIAH BENÍTEZ Sex#: F # 1950 Jose#: [id number] Location: [facility] SED-13 Procedure Requested: [id number] CT LUMBA R SPINE RECONSTRUCTED Reason for Exam: pain after a fall a week ago Exam Ordered: 11/25/2017 221 9 Exam Date/Time: 11/25/2017 2243 Begin exam date/time: 11/25/20172231 CT LUMBAR SPINE [...] 11:26 AM CDT Patient: ISIAH BENÍTEZ Sex#: F # 1950 Jose#: [id number] [facility] Procedure Requested: [id number] CT LUMBAR SPINE RECONSTRUCTED Reason for Exam: [...] those in the preliminary report provided by [employer]. READING SITE: [facility]. ATTESTATION STATEMENT: The Staff Radiologist has personally reviewed the images and dictated, reviewed, or edited the final report. Performing Organization Address City/State/Zipcode Ph one Number MCKESS[place] * CT Abdomen Pelvis wo contrast (11/25/2017 10:43 PM CDT) Specimen Impressions Performed At 1. No CT evidence of traumatic organ injury within th e abdomen or [facility] pelvis. 2. Hepatomegaly 3. Nonobstructing left renal calculi ATTESTATION STATEMENT: The Staff Radiologist has personally re viewed this study and agrees with the findings in this report. READING SITE: [facility] Narrative Performed At Patient: ISIAH BENÍTEZ Sex#: Paulina # 1950 Jose#: [id number] Location: [facility] ED SED-13 Procedure Requested: [id number] CT ABDOM EN PELVIS WO CONTRAST Reason for Exam: pain after fall a we ek ago Exam Ordered: 11/25/2017 221 8 Exam Date/Time: 11/25/20172242 Begin exam date/time: 11/25/20172231 CT ABDOMEN PELVIS WO CONTRAST INDICATION: Right-sided pain after fall 2 weeks prior. TECHNIQUE: CT of the abdomen and pelvis without contrast. Coronal and sagittal reformatted images were perfor med. COMPARISON: 02/04/2017. FINDINGS: No free air, free [...] ISIAH BENÍTEZ Sex#: Paulina # 1950 Jose#: [id number] Location: [facility] ED SED-13 Procedure Requested: [id number] CT ABDOMEN PELVIS WO CONTRAST Reason for Exam: pain after fall a week ago Exam Ordered: 11/25/20178 Exam Date/Time: 11/25/20172242 Begin exam date/time: 11/25/20172231 [...] the findings in this report. READING SITE: [facility] Performing Organization Address City/State/Zipcode Ph one Number LEVI * XR Hip 2 views with Pelvis right (11/25/2017 9:42 PM CDT) Specimen Impressions Performed At 1. No evidence of acute fracture. [facility] 2. Moderate bilateral hip osteoarthriti s. ATTESTATION STATEMENT: The Staff Radiologist has personally re viewed this study and agrees with the findings in this report. READING SITE: [facility] Narrative Performed At Patient: ISIAH BENÍTEZ Sex#: F # 1950 Jose#: [id number] Location: [facility] ED SED-13 Procedure Requested: [id number] XR HIP 2 VIEWS WITH PELVIS RIGHT [...] ISIAH BENÍTEZ Sex#: F # 1950 Jose#: [id number] Location: [facility] SED-13 Procedure Requested: [id number] XR HIP 2 VIEWS WITH PELVIS RIGHT Reason for Exam: hip/leg pain Exam Ordered: 11/25/20172119 Exam Date/Time: 11/25/20172141 Begin exam date/time: 11/25/20172120 [...] the findings in this report. READING SITE: [facility] Organization Address City/State/Zipcode Ph one Number [facility] documented in this encounter Visit Diagnoses Diagnosis [...]
--- OUTSIDE RECORDS SUMMARY | 2020-03-12 09:15 | XMS REPORT | Encounter Summary ---
Author Author [facility] Organization [facility] Address Unknown Phone Unavailable Care Team Providers Care High Lift Operator Name Role Phone Ebony Sharp MD PCP Reason for Visit * Reason Comments Other Encounter Details Care Team Description Date Type Department Ebony Sharp MD [address] [place], [place] [phone] Other 09/20/2017 Refill [facility] Primar y Care - [facility] [address] [place], [place] [address] Social History Date Tobacco Use Types Packs/Day [...]
--- OUTSIDE RECORDS SUMMARY | 2020-03-12 09:15 | XMS REPORT | Encounter Summary ---
Author Author [facility] Organization [facility] Address Unknown Phone Unavailable Care Team Providers Care Health Professor Name Role Phone Ebony Sharp MD PCP Encounter Details Care Team Description Date Type Department Adelaida Olivas MD [address] [facility] [address] [place], [place] [address] 10/07/2017 Hist-Transcript [facility] En[facility] Specialists [address] [facility] [address] [place], [place] [address] Social History Date Tobacco Use Types Packs/Day [...] Adelaida Olivas MD - 10/07/2017 2:14 PM PROMOTIONS FIRM ACCOUNTS MANAGER - History of Present Illness Patient [...] 1 po q daily VITAMIN D (ERGOCALCIFEROL) 76405 UNIT ORAL CAPSULE (ERGOCALCIFEROL) 1 po q [...] used: Print then Give to Patient RxID: [id number] LIDODERM 5 % EXTERNAL PATCH (LIDOCAINE) apply to painful area 12 hours on, 12 ho urs off #30 Undefined x 0 Entered by: Trevor Tillman APRN Authorized by: Adelaida Olivas MD Signed by: Trevor Tillman APRN on 10/07/2017 Method used: Print then Give to Patient RxID: [id number] Vital Signs Ht: 62 in. Wt: 236 [...] 130 Measure 109 Pain Managment Consult * OTIONS FIRM ACCOUNTS MANAGER documented in this encounter Plan of Treatment Not on filedocumented as of this encounter Visit Diagnoses Not on filedocumented in this encounter Additional Health Concerns Last Indicated Resolved Time Infection Onset Date 08/30/2017 04/19/2018 12:13 PM CDT Influenza 08/30/2017 08/30/2019 08/30/2019 1:09 PM PROMOTIONS FIRM ACCOUNTS MANAGER Influenza - Rule Out 08/30/2019 08/31/2019 09/17/2019 8:17 AM PROMOTIONS FIRM ACCOUNTS MANAGER RSV 08/31/2019 documented as of this encounter
--- OUTSIDE RECORDS SUMMARY | 2020-03-12 09:15 | XMS REPORT | Encounter Summary ---
Author Author [facility] Organization [facility] Address Unknown Phone Unavailable Care Team Providers Care Computer Project Manager Name Role Phone Ebony Sharp MD PCP Encounter Details Care Team Description Date Type Department Adelaida Olivas MD [address] [facility] [address] [place] [address] 09/09/2017 [facility] [address] [facility] [address] [place], [place] [address] Social History Date Tobacco Use Types Packs/Day [...] encounter Miscellaneous Notes * Clinic Note - Adeliada Olivas MD - 09/09/2017 4:04 PM NUCLEAR CRITICALITY SAFETY ENGINEER Prescriptions: CELEBREX 200 MG ORAL CAPSULE (CELECOXIB) 1 pill Daily with food #30[Capsule] x 0 Entered by: Aline Joy Authorized by: Adelaida Olivas MD Signed by: Aline Joy on 09/09/2017 Method used: Electronically to [facility]* (retail) [address] [place] [address] Ph: [phone] Fax: [phone] RxID: [id number] Resend from failed escript request. -Aline Joy, September 09, 2017 4:05 PM EAR CRITICALITY SAFETY ENGINEER documented in this encounter Plan of Treatment Not on filedocumented as of this encounter Visit Diagnoses Not on filedocumented in this encounter Additional Health Concerns Last Indicated Resolved Time Infection Onset Date 08/30/2017 04/19/2018 12:13 PM CDT Influenza 08/30/2017 08/30/2019 08/30/2019 1:09 PM NUCLEAR CRITICALITY SAFETY ENGINEER Influenza - Rule Out 08/30/2019 08/31/2019 09/17/2019 8:17 AM NUCLEAR CRITICALITY SAFETY ENGINEER RSV 08/31/2019 documented as of this encounter
--- OUTSIDE RECORDS SUMMARY | 2020-03-12 09:15 | XMS REPORT | Encounter Summary ---
Author Author [facility] Organization [facility] Address Unknown Phone Unavailable Care Team Providers Care Senior Application Security Consultant Name Role Phone Ebony Sharp MD PCP Reason for Visit * Reason Comments Follow-up Margot left ankle - LS. NA 0 10/07/17TVX: Appt. Reminder (11/16/2017 06:42 PM) Phone Call - Message Delivered (X=Answe ring Machine) Encounter Details Care Team Description Date Type Department Adelaida Olivas MD [address] [facility] [address] [place] [address] [phone] 11/18/2017 Hist-Appointmen [facility] [address] [facility] [address] [place] [address] Social History Date Tobacco Use Types Packs/Day [...]
--- OUTSIDE RECORDS SUMMARY | 2020-03-12 09:16 | XMS REPORT | Encounter Summary ---
Author Author [facility] Organization [facility] Address Unknown Phone Unavailable Care Team Providers Care Manager Of Maintenance Name Role Phone Ebony Sharp MD PCP Reason for Visit * Reason Comments Follow-up recheck left ankle Encounter Details Care Team Description Date Type Department Adelaida Olivas MD [address] [facility] [address] [place] [address] [phone] 08/05/2017 [facility] [address] [facility] [address] [place] [address] Social History Date Tobacco Use Types Packs/Day [...]
--- OUTSIDE RECORDS SUMMARY | 2020-03-12 09:16 | XMS REPORT | Encounter Summary ---
Author Author [facility] Organization [facility] Address Unknown Phone Unavailable Care Team Providers Care Retail Wireless Associate Name Role Phone Ebony Sharp MD PCP Encounter Details Care Team Description Date Type Department Adelaida Olivas MD [address] [facility] [address] [place] [address] 07/26/2017 Hist[facility]Telephone [facility] [address] [facility] [address] [place], [place] [address] Social History Date Tobacco Use Types Packs/Day [...] Adelaida Olivas MD - 07/26/2017 10:36 AM SUPERVISOR DRY CLEANING Phone Note Call from Other Clinic Summary of call: Rosa with [facility] is calling. She states that the [facility] insurance changed on 07/23/[address] scan now requires prior auth. Sh e states the patient was scheduled today for the CT. She is requesting a call t o discuss if this needs to be rescheduled. Please call back at [phone] Call taken by: Trina Rhodes on July 26, 2017 10:38 AM Follow-up for Phone Call Follow-up Details: getting new auth for [employer] Follow-up by: Edith Bautista on July 26, 2017 10:46 AM RVISOR DRY CLEANING documented in this encounter Plan of Treatment Not on filedocumented as of this encounter Visit Diagnoses Not on filedocumented in this encounter Additional Health Concerns Last Indicated Resolved Time Infection Onset Date 08/30/2017 04/19/2018 12:13 PM CDT Influenza 08/30/2017 08/30/2019 08/30/2019 1:09 PM SUPERVISOR DRY CLEANING Influenza - Rule Out 08/30/2019 08/31/2019 09/17/2019 8:17 AM SUPERVISOR DRY CLEANING RSV 08/31/2019 documented as of this encounter
--- OUTSIDE RECORDS SUMMARY | 2020-03-12 09:16 | XMS REPORT | Encounter Summary ---
Author Author [facility] Organization [facility] Address Unknown Phone Unavailable Care Team Providers Care Pomology Teacher Name Role Phone Ebony Sharp MD PCP Reason for Visit * Reason Comments Medication Refill Encounter Details Care Team Description Date Type Department Jennifer Feng RN Medication Refill 08/26/2017 Refill [facility] Prim[facility] Care - [facility] [address] [facility] [address] [place], [place] [id number] Social History Date Tobacco Use Types Packs/Day [...] Jennifer Feng RN - 08/26/2017 10:53 AM COLOR REPAIRER Last seen on 07/09/17. Refills requested for new pharm (these are only the ones our office has specifically refilled in Mar). Questioning if flexeril should be continued. Please advise. Thank you. R REPAIRER documented in this encounter Plan of Treatment Not on filedocumented as of this encounter Visit Diagnoses Not on filedocumented in this encounter Additional Health Concerns Last Indicated Resolved Time Infection Onset Date 08/30/2017 04/19/2018 12:13 PM CDT Influenza 08/30/2017 documented as of this encounter
--- OUTSIDE RECORDS SUMMARY | 2020-03-12 09:16 | XMS REPORT | Encounter Summary ---
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 P rocedures CT Ankle wo contrast left Reason for Visit * MRI/CAT/PET Scan (Routine) Referred By Contact Referred To Contact Status Reason Specialty Diagnoses / Procedures Adelaida Olivas MD [address] [facility] [address] [place] [address] [place] [address] Closed Radiology Diagnoses Left ankle pain Ankle joint contracture, 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 P rocedures CT Ankle wo contrast left Encounter Details Care Team Description Date Type Department Adelaida Olivas MD [address] [facility] [address] [place] [address] [phone] Left ankle pain; Ankle joint contracture, left; Pseudarthrosis after fusion or arthrodesis 08/13/2017 [facility] [address] [facility] [place] [address] Social History Date Tobacco Use Types Packs/Day [...] Routine 08/13/2017 Left ankle pain 2:16 PM SNOWMAKER Ankle joint contracture, 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 Status post revision tibiotalar arthrodesis. No evidence of LEVI hardware-related complication. 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 2. Subcutaneous edema/fluid particula rly along the lateral aspect of the distal calf and ankle. No evidence of localized drainable fluid collection on this noncontrast enhanced study. READING SITE: [facility] Imaging Narrative Performed At Patient: ISIAH BENÍTEZ Sex#: F # [id number] Jose#: [id number] Location: [facility] CT Procedure Requested: [id number] CT ANKLE WO CONTRAST LEFT Reason for [...] Rad Results In - 08/13/2017 3:18 PM SNOWMAKER Patient: ISIAH BENÍTEZ Sex#: Paulina # [id number] Jose#: [id number] Location: [facility] CT Procedure Requested: [id number] CT ANKLE WO CONTRAST LEFT Reason for [...] on this noncontrast enhanced study. READING SITE: [facility] Imaging Performing Organization Address City/State/Zipcode Ph one Number LEVI documented in this encounter Visit Diagnoses Diagnosis Left ankle pain Pain in joint, ankle and foot Ankle joint contracture, left Pseudarthrosis after fusion or arthrode sis Arthrodesis status documented in this encounter
--- OUTSIDE RECORDS SUMMARY | 2020-03-12 09:16 | XMS REPORT | Encounter Summary ---
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 P rocedures CT Ankle wo contrast left Encounter Details Care Team Description Date Type Department Adelaida Olivas MD [address] [facility] [address] [place], [place] [id number] Left ankle pain (Primary Dx); Ankle joint contracture, left; Pseudarthrosis after fusion or arthrodesis 07/19/2017 [facility] [address] [place], [place] [id number] Social History Date Tobacco Use Types Packs/Day [...] filedocumented as of this encounter Results * CT Ankle wo contrast left (08/13/2017 2:16 PM SPRAY PAINTING MACHINE OPERATOR) Specimen Impressions Performed At 1. Status [...] on this noncontrast enhanced study. READING SITE: [facility] Imaging Narrative Performed At Patient: ISIAH BENÍTEZ Sex#: F # [id number] Jose#: [id number] [place] [facility] [place] Procedure Requested: [id number] CT ANKLE WO CONTRAST LEFT Reason for [...] Rad Results In - 08/13/2017 3:18 PM SPRAY PAINTING MACHINE OPERATOR Patient: ISIAH BENÍTEZ Sex#: Paulina # [id number] Jose#: [id number] Location: [facility] [place] Procedure Requested: [id number] CT ANKLE WO CONTRAST LEFT Reason for [...] on this noncontrast enhanced study. READING SITE: [facility] Imaging Performing Organization Address City/State/Zipncde Ph one Number [place] documented in this encounter Visit Diagnoses Diagnosis Left ankle pain Pain in joint, ankle and foot Ankle joint contracture, left Pseudarthrosis after fusion or arthrode sis Arthrodesis status documented in this encounter Additional Health Concerns Last Indicated Resolved Time Infection Onset Date 08/30/2017 04/19/2018 12:13 PM CDT Influenza 08/30/2017 08/30/2019 08/30/2019 1:09 PM SPRAY PAINTING MACHINE OPERATOR Influenza - Rule Out 08/30/2019 08/31/2019 09/17/2019 8:17 AM SPRAY PAINTING MACHINE OPERATOR RSV 08/31/2019 documented as of this encounter
--- OUTSIDE RECORDS SUMMARY | 2020-03-12 09:16 | XMS REPORT | Encounter Summary ---
Author Author [facility] Organization [facility] Address Unknown Phone Unavailable Care Team Providers Care Chain Person Name Role Phone Ebony Sharp MD PCP Encounter Details Care Team Description Date Type Department Adelaida Olivas MD [address] [facility] [address] [place] [address] [phone] 07/14/2017 Hist[facility]Other [facility] [address] [place] [address] Social History Date Tobacco Use Types Packs/Day [...] nosis XR ANKLE Routine 07/14/2017 11:15 AM ELECTRICAL ENGINEERING DRAFTING OFFICER documented in this encounter Results * XR Ankle (07/14/2017 11:15 AM ELECTRICAL ENGINEERING DRAFTING OFFICER) Specimen Performing Organization Address City/State/Zipcode Ph one Number LEVI documented in this encounter Visit Diagnoses Not on filedocumented in this encounter Additional Health Concerns Last Indicated Resolved Time Infection Onset Date 08/30/2017 04/19/2018 12:13 PM CDT Influenza 08/30/2017 documented as of this encounter
--- OUTSIDE RECORDS SUMMARY | 2020-03-12 09:16 | XMS REPORT | Encounter Summary ---
Author Author [facility] Organization [facility] Address Unknown Phone Unavailable Care Team Providers Care Womens Health Nurse Practitioner Name Role Phone Ebony Sharp MD PCP Reason for Visit * Reason Comments Other Encounter Details Care Team Description Date Type Department Ebony Sharp MD [address] [facility] [address] [place] [address] Other 07/22/2017 Refill [facility] Primar y Care - East [address] [facility] [address] [place], [place] [phone] Social History Date Tobacco Use Types Packs/Day [...]
--- OUTSIDE RECORDS SUMMARY | 2020-03-12 09:16 | XMS REPORT | Encounter Summary ---
Author Author [facility] Organization [facility] Address Unknown Phone Unavailable Care Team Providers Care Education Finance Processor Name Role Phone Ebony Sharp MD PCP Reason for Visit * Reason Comments Other Encounter Details Care Team Description Date Type Department Ebony Sharp MD [address] [facility] [address] [place] [address] Other 08/04/2017 Refill [facility] Primar y Care - East [address] [facility] [address] [place], [place] [id number] Social History Date Tobacco Use Types Packs/Day [...]
--- OUTSIDE RECORDS SUMMARY | 2020-03-12 09:16 | XMS REPORT | Encounter Summary ---
Author Author [facility] Organization [facility] Address Unknown Phone Unavailable Care Team Providers Care Contracting Analyst Name Role Phone Ebony Sharp MD PCP Reason for Visit * Reason Comments Shortness of Breath * Auth/Cert Referred By Contact Referred To Contact Status Reason Specialty Diagnoses / Procedures Diagnoses Influenza Encounter Details Care Team Description Date Type Department Omar Vásquez MD [address] [place] [address] Ralf Pugh MD [address] [place], [place] [id number] Santa Julian MD [address] [place], [place] [id number] Preethi Zavala MD [address] [place], [place] [id number] Maikel Gasca MD [address] [place], [place] [id number] Influenza (Primary Dx); COPD exacerbation (HCC); Type 2 diabetes mellitus without complication, 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); Influenza A 08/29/2017 [facility] 09/01/2017 [address] [place] [address] Social History Date Tobacco Use [...] Comments Vital Sign 159/83 09/01/2017 8:07 AM CAPTAIN/AIRLINE PILOT Nurse notified Blood Pressure 61 09/01/2017 11:30 AM CAPTAIN/AIRLINE PILOT Pulse 36.4 C (97.5 F) 09/01/2017 8:07 AM CAPTAIN/AIRLINE PILOT Temperature 18 09/01/2017 8:07 AM CAPTAIN/AIRLINE PILOT Respiratory Rate 96% 09/01/2017 11:30 AM CAPTAIN/AIRLINE PILOT Oxygen Saturation - - Inhaled Oxygen Concentration 95.7 kg (211 lb) 08/29/2017 7:44 AM CAPTAIN/AIRLINE PILOT Weight 157.5 cm (5' 2") 08/29/2017 7:44 AM CAPTAIN/AIRLINE PILOT Height 38.59 08/29/2017 7:44 AM CAPTAIN/AIRLINE PILOT Body Mass Index documented in this encounter Discharge Summaries * Maikel Gasca MD - 09/01/2017 10:13 AM CAPTAIN/AIRLINE PILOT Patient Name: Isiah Benítez Age: 67 y.o. [...] mL nebulizer Inhale 3 mL 4 (four) jaonn es a day. Qty: 360 mL, Refills: [...] 09/01/2017 10:13 AM cc: Ebony Sharp MD AIN/AIRLINE PILOT documented in this encounter Discharge Instructions * [...] dise ase People who live in a usp or long-term care facility How is the [...] is also available but isnotrecommended for the 2588-9288 flu season. The CDC says this is [...] open the do or. Using alcohol-based hand oracle manager Alcohol-based handcleaners are also a good choice. [...] for people in hospitals and long-term care [facility] . To help prevent the spread of flu, many hospitals and nursing homes take the se steps: Healthcare providers wash their hands or use an alcohol-based hand boat cleaner be fore and after treating each patient. People with the flu have private rooms and bathrooms or share a room with diego eone with the same infection. People who are at high risk for the flu but don't have it are encouraged to g et theflu and pneumonia vaccines. All healthcare workers are encouraged or required toget flu shots. Date Last Reviewed: 07/23/201619994371-0518 [employer]. [address] [place] [address] 7. All rights reserved. This information is not intended as a substitute for pro fessional medical care. Always follow your healthcare professional's instruction s. * Attachments The following attachments cannot be sent through Care Everywhere.* Oseltamivir capsules (Northern Irish) * PREDNISONE ORAL TABLET (CROATIAN) documented in this encounter Medications at Time [...] Isidra Pathak LCSW - 08/31/2017 4:46 PM CAPTAIN/AIRLINE PILOT 08/31/17 1645 Discharge Planning Anticipated discharge destination Home Self Care Multidisciplinary Discharge Rounds Disciplines Present Publicity Writer;Hospitalist RN;Physician;Rehab;Social Work Discharge Comments HSC in 1-2 days AIN/AIRLINE PILOT * Maikel Gasca MD - 08/31/2017 12:10 PM CAPTAIN/AIRLINE PILOT [facility] Hospitalist - Progress Note Patient Name: Isiah Do Board Account No: [id number] Date of : 1950 Date of Admission: [...] results (as indicated), current inpatient medications and sales support technician notes with pertainent findings noted within the [...] details regarding this patients treatment plan. Room: [address] [place] [address] Diet: Diet-Consistent Carbohydrate (75 gm); Low Sodium [...] polyethylene glycol, promethazine-codeine, so dium chloride, traMADol Makiel Gasca MD [facility] Hospitalist Please page through physician paging. . AIN/AIRLINE PILOT * Isidra Pathak LCSW - 08/31/2017 10:20 AM CAPTAIN/AIRLINE PILOT 08/31/17 1019 Discharge Planning Anticipated discharge destination Home Self Care Multidisciplinary Discharge Rounds Disciplines Present Publicity Writer;Teacher Education Instructor;Social Work;Primary return agent airport Comments HSC in 1-2 days AIN/AIRLINE PILOT * Preethi Zavala MD - 08/30/2017 3:09 PM CAPTAIN/AIRLINE PILOT [facility] Hospitalist - Progress Note Patient Name: Isiah Do Board Account No: [id number] Date of : 1950 Date of Admission: [...] results (as indicated), current inpatient medications and sales support technician notes with pertainent findings noted within the [...] details regarding this patients treatment plan. Room: [address] [place] [address] Diet: Diet-Consistent Carbohydrate (75 gm); Low Sodium [...] promethazine-codeine, sodium chlorid e Preethi Zavala MD [facility] Hospitalist Please page through physician paging. . AIN/AIRLINE PILOT documented in this encounter H&P Notes * Lilibeth Redmond RN CAR OILER - 08/29/2017 1:03 PM CAPTAIN/AIRLINE PILOT [facility] Hospitalist - History & Physical Patient Name: Isiah Benítez Account No: [id number] Date of : 1950 Date of Admission: 08/29/2017 8:43 AM Primary Care Physician: Ebony Sharp MD; Subjective Chief Complaint: Shortness of Breath History of Present illness: Ms. Isiah Benítez is a 67 y.o. 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 Social History: She reports [...] the performing provider), EKG, current inpatient medications, sales support technician notes, p rior admission/outpatient notes and prior [...] treatment as noted above. Lilibeth Redmond RN CAR OILER [facility] Hospitalist Please page through physician paging. . AIN/AIRLINE PILOT Associated attestation - Ralf Pugh MD - 08/29/2017 2:53 PM CAPTAIN/AIRLINE PILOT [facility] Hospitalist - History & Physical Patient Name: Isiah Benítez Account No: [id number] Date of : 1950 Date of Admission: [...] the performing provider), current inpatient medications and sales support technician notes with pertainent findings noted within the [...] treatment as noted above. Ralf Pugh MD [facility] Hospitalist Please page through physician paging. . documented in this encounter ED Notes * Kiana Stearns RN - 08/29/2017 2:05 PM CAPTAIN/AIRLINE PILOT Bed: [facility] Expected date: Expected time: Means of arrival: Comments: ROOM 3 HERE AIN/AIRLINE PILOT Katerina Max RN - 08/29/2017 12:26 PM CAPTAIN/AIRLINE PILOT Pt resting on cart and eating lunch at this time. Nad, VSS, call light within re ach, advised of POC and states understanding. AIN/AIRLINE PILOT * Katerina Nash RN - 08/29/2017 11:22 AM CAPTAIN/AIRLINE PILOT Pt resting on cart, nad, VSS, call light within reach, advised of POC and states understanding. AIN/AIRLINE PILOT * Thania Marroquin RN - 08/29/2017 10:05 AM CAPTAIN/AIRLINE PILOT Respiratory therapist notified of breathing treatment. AIN/AIRLINE PILOT * Katerina Nash RN - 08/29/2017 9:48 AM CAPTAIN/AIRLINE PILOT Dr. Vásquez notified of positive flu A AIN/AIRLINE PILOT Katerina Max RN - 08/29/2017 9:31 AM CAPTAIN/AIRLINE PILOT Pt resting on cart, nad, VSS, call light within reach, advised of POC and states understanding. AIN/AIRLINE PILOT Omar Ding MD - 08/29/2017 9:00 AM CAPTAIN/AIRLINE PILOT 08/29/2017 [facility] History Chief Complaint [...] frontal Final Result No consolidation. READING SITE: [facility] Results for orders placed or performed [...] Disposition Admit Omar Vásquez MD 08/29/17 1038 AIN/AIRLINE PILOT documented in this encounter Miscellaneous Notes * Care Progression Final DC Note - Thania Mcneal, ADAM - 09/01/2017 3:06 PM CAPTAIN/AIRLINE PILOT Final Discharge Note Anticipated discharge destination: Home Self Care Discharge goal and plan is mutually agreed upon by patient. Patient will discharge to: Home self care with her daughter. Transportation: Provided by the patient's daughter. Discharge Time: After 4:00 when the patient's daughter is off work. Thania Mcneal RN Publicity Writer [phone]. AIN/AIRLINE PILOT * Care Progression Initial Assessment - Thania Mcneal RN - 09/01/2017 3:03 PM CAPTAIN/AIRLINE PILOT Care Progression Initial Assessment Note Additional information: [...] Appropriate, Speech: Normal, Orientation Level: Intact Patient Apron Worker Name: Lauryn Garcia, Patient Apron Worker Juan ne: [phone] Patient's Living Arrangement: House Patients support system has been Support System: Children Patient has verbalized the following concerns at discharge: None Family Concerns: N/A Pt has Payor: MEDICARE REPLACEMENT PLAN / Plan: [facility] MEDICARE ADVANTAGE / Produ ct Type: *No Product type* / Legal Information: Advance Directives: Power of System Support Analyst for health care, Legal Documentation: Requested Patients [...] MD and abhilash ves their medications from [place] [address] [place], [place] - [address] [facility] [address] [facility] [address] [facility] [phone] Discharge Planning Interventions General Discharge Note Patients [...] discharge plan : Yes Thania Mcneal RN Publicity Writer [phone]. AIN/AIRLINE PILOT * Plan of Care - Vivian Friend RN - 09/01/2017 12:23 PM CAPTAIN/AIRLINE PILOT Problem: Knowledge Deficit Goal: Patient/family/caregiver demonstrates understanding [...] fall during their Inpatient stay Outcome: Progressing AIN/AIRLINE PILOT * Plan of Care - Ladan Allan RN - 08/31/2017 10:18 PM CAPTAIN/AIRLINE PILOT Problem: Knowledge Deficit Goal: Patient/family/caregiver demonstrates understanding [...] fall during their Inpatient stay Outcome: Progressing AIN/AIRLINE PILOT * Plan of Zena Kern RN - 08/31/2017 10:44 AM CAPTAIN/AIRLINE PILOT Problem: Knowledge Deficit Goal: Patient/family/caregiver demonstrates understanding [...] fall during their Inpatient stay Outcome: Progressing AIN/AIRLINE PILOT * Plan of Chayo - Ladan Allan RN - 08/30/2017 9:55 PM CAPTAIN/AIRLINE PILOT Problem: Knowledge Deficit Goal: Patient/family/caregiver demonstrates understanding [...] call light approprietly. Call light within reach AIN/AIRLINE PILOT * Plan of Tiny Gallo RN - 08/30/2017 8:57 AM CAPTAIN/AIRLINE PILOT Problem: Knowledge Deficit Goal: Patient/Family/Caregiver sets realistic [...] fall during their Inpatient stay Outcome: Progressing AIN/AIRLINE PILOT * Plan of Care - Donna Joy RN - 08/29/2017 10:53 PM CAPTAIN/AIRLINE PILOT Problem: Knowledge Deficit Goal: Patient/family/caregiver demonstrates understanding [...] fall during their Inpatient stay Outcome: Progressing AIN/AIRLINE PILOT * Assessment & Plan Note - Maikel Gasca MD - 08/29/2017 2:04 PM CAPTAIN/AIRLINE PILOT Associated Problem(s): Diabetes mellitus, type II (HCC) Elevated Increase lantus and ssi. AIN/AIRLINE PILOT * Assessment & Plan Note - Maikel Gasca MD - 08/29/2017 2:03 PM CAPTAIN/AIRLINE PILOT Associated Problem(s): Influenza A Continue tamfilu AIN/AIRLINE PILOT * Assessment & Plan Note - Lilibeth Redmond RN CAR OILER - 08/29/2017 2:03 PM CAPTAIN/AIRLINE PILOT Associated Problem(s): Essential hypertension Normotensive Continue home meds AIN/AIRLINE PILOT * Assessment & Plan Note - Maikel Gasca MD - 08/29/2017 2:01 PM CAPTAIN/AIRLINE PILOT Associated Problem(s): COPD exacerbation (HCC) Change steroids to po duonebs tamiflu Supportive care. AIN/AIRLINE PILOT documented in this encounter Plan of Treatment Not on filedocumented as of this encounter Procedures Comments Procedure Name Priority Date/Time Associated Diag nosis GLUCOSE POC Routine 09/01/2017 11:39 AM CAPTAIN/AIRLINE PILOT GLUCOSE POC Routine 09/01/2017 8:17 AM CAPTAIN/AIRLINE PILOT GLUCOSE POC Routine 08/31/2017 8:49 PM CAPTAIN/AIRLINE PILOT GLUCOSE POC Routine 08/31/2017 4:01 PM CAPTAIN/AIRLINE PILOT GLUCOSE POC Routine 08/31/2017 11:40 AM CAPTAIN/AIRLINE PILOT GLUCOSE POC Routine 08/31/2017 7:32 AM CAPTAIN/AIRLINE PILOT GLUCOSE POC Routine 08/31/2017 3:09 AM CAPTAIN/AIRLINE PILOT GLUCOSE POC Routine 08/31/2017 12:13 AM CAPTAIN/AIRLINE PILOT GLUCOSE POC Routine 08/30/2017 8:59 PM CAPTAIN/AIRLINE PILOT GLUCOSE POC Routine 08/30/2017 5:15 PM CAPTAIN/AIRLINE PILOT GLUCOSE POC Routine 08/30/2017 11:30 AM CAPTAIN/AIRLINE PILOT CBC AND DIFF (MANUAL DIFF Routine 08/30/2017 IF NECESSARY) 8:12 AM CAPTAIN/AIRLINE PILOT BASIC METABOLIC PANEL Routine 08/30/2017 8:12 AM CAPTAIN/AIRLINE PILOT GLUCOSE POC Routine 08/30/2017 7:30 AM CAPTAIN/AIRLINE PILOT GLUCOSE POC Routine 08/30/2017 3:38 AM CAPTAIN/AIRLINE PILOT GLUCOSE POC Routine 08/30/2017 12:26 AM CAPTAIN/AIRLINE PILOT GLUCOSE POC Routine 08/29/2017 9:19 PM CAPTAIN/AIRLINE PILOT GLUCOSE POC Routine 08/29/2017 5:40 PM CAPTAIN/AIRLINE PILOT INFLUENZA AB ANTIGEN STAT 08/29/2017 9:26 AM CAPTAIN/AIRLINE PILOT XR CHEST SINGLE VIEW STAT 08/29/2017 FRONTAL 9:00 AM CAPTAIN/AIRLINE PILOT TROPONIN STAT 08/29/2017 9:00 AM CAPTAIN/AIRLINE PILOT PROTHROMBIN TIME/INR STAT 08/29/2017 9:00 AM CAPTAIN/AIRLINE PILOT COMPREHENSIVE METABOLIC STAT 08/29/2017 PANEL 9:00 AM CAPTAIN/AIRLINE PILOT CBC AND DIFF (MANUAL DIFF STAT 08/29/2017 IF NECESSARY) 9:00 AM CAPTAIN/AIRLINE PILOT PULSE OXIMETRY, STAT 08/29/2017 CONTINUOUS 8:48 AM CAPTAIN/AIRLINE PILOT ECG STAT 08/29/2017 7:48 AM CAPTAIN/AIRLINE PILOT documented in this encounter Results * GLUCOSE POC (09/01/2017 11:39 AM CAPTAIN/AIRLINE PILOT) Only the most recent of 16 results within the time period is included. Pathologist [facility] Glucose POC 183 (H) 70 - 100 mg/dL [facility] Specimen Performing Organization Address City/State/Zipcode Ph one Number [facility] [address] [place] [facility] [place] [address] [facility]ATE ALBERT [facility] [address] [place] [address], [facility] * Basic Metabolic Panel (08/30/2017 8:12 AM CAPTAIN/AIRLINE PILOT) [facility] Sodium 140 133 - 147 MEQ/L [facility] Potassium 3.9 3.5 - 5.3 MEQ/L [facility] Chloride 106 96 - 112 MEQ/L [facility] ALBERT [facility] Carbon Dioxide 25 20 - 32 MEQ/L [facility] Anion Gap 9 5 - 17 [facility] Calcium 8.7 8.4 - 10.5 mg/dL [facility] Glucose 157 (H) 70 - 100 mg/dL [facility] Blood Urea 16 7 - 26 mg/dL [facility] Nitrogen [facility] Creatinine 0.7 0.4 - 1.1 mg/dL [facility] eGFR Female AA 101 60 - 200 [facility] Comment: [facility] Chronic Kidney Disease less [...] wit h accession number [facility] Abdi [id number]. K[facility] Performing Organization Address City/State/Zipcode Ph one Number [facility] [address] [place] [facility] [place] [facility] [place] [address] [facility] [address] [place] [facility] [place] [address], [facility] * CBC and Diff (manual diff if necessary) (08/30/2017 8:12 AM CAPTAIN/AIRLINE PILOT) Only the most recent of 2 results within the time period is included. WBC 8.42 4.00 - 11.00 TH/uL [facility] RBC 3.73 (L) 4.00 - 5.00 MIL/uL [facility] Hemoglobin 12.0 12.0 - 15.0 g/dL [facility] Hematocrit 36 36 - 45 % [facility] MCV 97 80 - 99 fL [facility] MCH 32 27 - 34 pg [facility] MCHC 33 32 - 36 % [facility] RDW 14.4 9.0 - 14.5 % [facility] Platelet Count 132 (L) 140 - 400 TH/uL [facility] MPV 9.9 9.4 - 12.3 fL [facility] % Neutrophils 68 45 - 78 % [facility] %Lymphocytes 20 15 - 47 % [facility] %Monocytes 12 0 - 12 % [facility] # Granulocytes 5.76 1.7 - 6.8 TH/uL [facility] # Lymphocytes 1.68 1.0 - 3.3 TH/uL [facility] # Monocytes 0.98 (H) 0.2 - 0.9 TH/uL [facility] # Eosinophils 0.00 0.0 - 0.4 TH/uL [facility] # Basophils 0.00 0.0 - 0.1 TH/uL [facility] Specimen Blood Narrative Performed At This order is a replacement of the rejected order wit accession number [facility] PRICE [id number]. KIKI [facility] Performing Organization Address City/State/Zipcode Ph one Number [facility] [address] [facility], [place] [id number] [facility] [address] [facility] [place] [address], [facility] * Influenza AB Antigen (08/29/2017 9:26 AM CAPTAIN/AIRLINE PILOT) Influenza A Positive (A)Comment: If this Negative [facility] Antigen is an inpatient, droplet [facility] precautions are required with [facility] this organism Influenza B Negative Negative [facility] Antigen Comment: [facility] A negative rapid influenza [facility] antigen result does not exclude influenza infection. If this patient is being hospitalized, influenza PCR should be ordered. Specimen Nasopharynx, Performing Organization Address City/State/Zipcode Ph one Number [facility] [address] [facility], [place] [phone] [facility] [address] [facility] [address], [place] [phone] [facility] * XR Chest single view frontal (08/29/2017 9:00 AM CAPTAIN/AIRLINE PILOT) Specimen Impressions Performed At No consolidation. LEVI READING SITE: [facility] Narrative Performed At Patient: ISIAH BENÍTEZ Sex#: F # [id number] Jose#: [id number] [place] [facility] [place] [facility] Procedure Requested: [id number] XR CHEST SINGLE VIEW FRONTAL Reason for [...] Rad Results In - 08/29/2017 9:15 AM CAPTAIN/AIRLINE PILOT Patient: ISIAH BENÍTEZ Sex#: F # [id number] Jose#: [id number] Location: [facility] [place] [facility] Procedure Requested: [id number] XR CHEST SINGLE VIEW FRONTAL Reason for [...] are stable. IMPRESSION No consolidation. READING SITE: [facility] Performing Organization Address City/State/Zipcode Ph one Number [facility] * Troponin 0 hr (08/29/2017 9:00 AM CAPTAIN/AIRLINE PILOT) Troponin <0.01 0.00 - 0.03 ng/mL [facility] Comment: [facility] Troponin Value [facility] Interpretation 0.00 - 0.03 Healthy 0.04 - 0.12 Increased Cardiac Risk >0.12 Myocardial Infarction Troponin may not become elevated until 6 to 8 hours after onset of symptoms. Specimen Blood Performing Organization Address City/State/[facility] Ph one Number [facility] [address] [place] [facility] [place] [address] [facility] [address] [place] [address], [facility] * Prothrombin Time/INR - ONLY if patient is on Warfarin (08/29/2017 9:00 AM CAPTAIN/AIRLINE PILOT) Protime 12.8 11.4 - 15.0 sec [facility] INR 1.0 0.8 - 1.2 [facility] Specimen Blood Performing Organization Address City/[facility] Ph one Number [facility] [address] [place] [facility] [place] [address] [facility] [address] [place] [facility] [address], [facility] * Comprehensive Metabolic Panel (08/29/2017 9:00 AM CAPTAIN/AIRLINE PILOT) Sodium 140 133 - 147 MEQ/L [facility] Potassium 4.0 3.5 - 5.3 MEQ/L [facility] Chloride 104 96 - 112 MEQ/L [facility] Carbon Dioxide 26 20 - 32 MEQ/L [facility] Anion Gap 10 5 - 17 [facility] Calcium 9.1 8.4 - 10.5 mg/dL [facility] Glucose 176 (H) 70 - 100 mg/dL [facility] Protein Total 7.5 6.0 - 8.2 g/dL [facility] Serum [facility] Albumin 4.2 3.5 - 5.0 g/dL [facility] Alkaline 84 42 - 140 IU/L [facility] Phosphatase [facility] Alanine 31 13 - 69 IU/L [facility] Aminotransferas [facility] Aspartate 28 15 - 46 IU/L [facility] Aminotransferas [facility] Bilirubin Total 0.5 0.2 - 1.3 mg/dL [facility] Blood Urea 17 7 - 26 mg/dL [facility] Nitrogen [facility] Creatinine 0.7 0.4 - 1.1 mg/dL [facility] eGFR Female AA 101 60 - [address] [facility] Comment: [facility] Chronic Kidney Disease less [facility] than 60 mL/min/1.73 sq.m Kidney failure less than 15 mL/min/1.73 sq.m eGFR Female 84 60 - 200 [facility] Non-AA Comment: [facility] Chronic Kidney Disease less [facility] than 60 mL/min/1.73 sq.m Kidney failure less than 15 mL/min/1.73 sq.m Specimen Blood Performing Organization Address City/State/Zipcode Ph one Number [facility] [address] [place] [facility] [place] [address] [facility] [address] [facility] [address] [place] [address], [facility] * Electrocardiogram (ECG) (08/29/2017 7:48 AM CAPTAIN/AIRLINE PILOT) Specimen Narrative Performed At [facility] ED Test Date: 2017-08-29 Pat Name: ISIAH BENÍTEZ Department: ERS Room: Gender: Female Armature Balancer: [id number] : 1950 Requested By: JASON GUILLORY Order Number: [id number] Reading MD: Measurements Intervals [place] Rate: 73 P: 58 IN: 156 QRS: 63 QRSD: 100 T: 61 QT: 396 QTc: 437 Interpretive Statements SINUS RHYTHM Procedure Note Interface, External Ris In - 08/29/2017 7:49 AM CAPTAIN/AIRLINE PILOT [facility] ED Test Date: 2017-08-29 Pat Name: ISIAH BENÍTEZ Department: ERS Room: Gender: Female Armature Balancer: [id number] : 1950 Requested By: JASON GUILLORY Order Number: [id number] Reading MD: Measurements Intervals [place] Rate: 73 P: 58 IN: 156 QRS: 63 QRSD: 100 T: 61 [...] not exceed 2 GM/DAY., 08/31/2017 9:34 PM CAPTAIN/AIRLINE PILOT 25 mg amitriptyline (ELAVIL) tablet 25 mg Given 25 mg, Oral, Nightly, First dose on 08/29/17 at 2100 25 mg Given 08/30/2017 8:12 PM CAPTAIN/AIRLINE PILOT 25 mg Given 08/29/2017 8:08 PM CAPTAIN/AIRLINE PILOT 09/01/2017 8:50 AM CAPTAIN/AIRLINE PILOT 5 mg amLODIPine (NORVASC) tablet 5 mg Given 5 mg, Oral, Daily, First dose on 08/29/17 at 1915 5 mg Given 08/31/2017 9:13 AM CAPTAIN/AIRLINE PILOT 5 mg Given 08/30/2017 8:30 AM CAPTAIN/AIRLINE PILOT 08/31/2017 3:58 AM CAPTAIN/AIRLINE PILOT 100 mg benzonatate (TESSALON) capsule 100 mg Given 100 mg, Oral, 3 times daily PRN, cough, Starting 08/29/17 at 1331, DO NOT CRUSH OR CHEW., 100 mg Given 08/30/2017 8:13 PM CAPTAIN/AIRLINE PILOT 100 mg Given 08/29/2017 8:08 PM CAPTAIN/AIRLINE PILOT 09/01/2017 8:50 AM CAPTAIN/AIRLINE PILOT 200 mg celecoxib (CeleBREX) capsule 200 mg Given 200 mg, Oral, Daily, First dose on 08/29/17 at 1207 200 mg Given 08/31/2017 9:14 AM CAPTAIN/AIRLINE PILOT 200 mg Given 08/30/2017 8:30 AM CAPTAIN/AIRLINE PILOT 09/01/2017 8:50 AM CAPTAIN/AIRLINE PILOT 20 mg citalopram (CeleXA) tablet 20 mg Given 20 mg, Oral, Daily, First dose on 08/29/17 at 1915 20 mg Given 08/31/2017 9:14 AM CAPTAIN/AIRLINE PILOT 20 mg Given 08/30/2017 8:30 AM CAPTAIN/AIRLINE PILOT dextrose 10% (D10W) bolus 125-250 mL 125-250 [...] glucose greater than 80., 08/29/2017 10:46 AM CAPTAIN/AIRLINE PILOT 100 mg doxycycline hyclate (VIBRA-TABS) tablet Given 100 mg 100 mg, Oral, Once, Indications: COPD, 08/29/17 at 1039, For 1 dose 09/01/2017 7:57 AM CAPTAIN/AIRLINE PILOT 1 puff fluticasone-vilanterol (BREO ELLIPTA) Given 200-25 mcg/actuation inhaler 1 puff 1 puff, Inhalation, Daily, First dose o n 08/29/17 at 1915, Rinse mouth with water after use if patient not on vent. , 1 puff Given 08/31/2017 8:24 AM CAPTAIN/AIRLINE PILOT 1 puff Given 08/30/2017 7:58 AM CAPTAIN/AIRLINE PILOT 09/01/2017 8:50 AM CAPTAIN/AIRLINE PILOT 300 mg gabapentin (NEURONTIN) capsule 300 mg Given 300 mg, Oral, 3 times daily, First dose on 08/29/17 at 2100 300 mg Given 08/31/2017 9:33 PM CAPTAIN/AIRLINE PILOT 300 mg Given 08/31/2017 3:56 PM CAPTAIN/AIRLINE PILOT glucagon (GLUCAGEN) injection 1 mg 1 mg, [...] patient o n side., 09/01/2017 8:50 AM CAPTAIN/AIRLINE PILOT 1,200 mg guaiFENesin (MUCINEX) 12 hr tablet 1,200 Given mg 1,200 mg, Oral, 2 times daily, First dose on 08/29/17 at 1333, DO NOT GERI H OR CHEW., 1,200 mg Given 08/31/2017 9:34 PM CAPTAIN/AIRLINE PILOT 1,200 mg Given 08/31/2017 9:13 AM CAPTAIN/AIRLINE PILOT 09/01/2017 5:45 AM CAPTAIN/AIRLINE PILOT 5,000 Units Abdomina l Tissue heparin (porcine) 5,000 unit/mL Given injection 5,000 Units 5,000 Units, Subcutaneous, Every 8 hours, First dose on Wed08/29/17 at 2200 5,000 Units Abdominal Tissue Given 08/31/2017 9:34 PM CAPTAIN/AIRLINE PILOT 5,000 Units Abdominal Tissue Given 08/31/2017 3:56 PM CAPTAIN/AIRLINE PILOT 08/29/2017 8:10 PM CAPTAIN/AIRLINE PILOT 5,000 Units Abdomina l Tissue heparin (porcine) 5,000 unit/mL Given injection 5,000 Units 5,000 Units, Subcutaneous, Every 8 hours, First dose on Wed08/29/17 at 1455 5,000 Units Abdominal Tissue Given 08/29/2017 2:58 PM CAPTAIN/AIRLINE PILOT 08/30/2017 9:34 PM CAPTAIN/AIRLINE PILOT 10 Units Abdomina l Tissue insulin glargine (LANTUS) injection 10 Given Units 10 Units, Subcutaneous, Nightly, First dose on Wed08/29/17 at 2100 10 Units Abdominal Tissue Given 08/29/2017 10:10 PM CAPTAIN/AIRLINE PILOT 08/31/2017 9:34 PM CAPTAIN/AIRLINE PILOT 15 Units Abdomina l Tissue insulin glargine (LANTUS) injection 15 Given Units 15 Units, Subcutaneous, Nightly, First dose (after last modification) on Wed08/31/17 at 2100 08/31/2017 12:08 PM CAPTAIN/AIRLINE PILOT 4 Units Abdomina l Tissue insulin lispro [...] Units Abdominal Tissue Given 08/31/2017 9:14 AM CAPTAIN/AIRLINE PILOT 4 Units Abdominal Tissue Given 08/30/2017 9:34 PM CAPTAIN/AIRLINE PILOT 09/01/2017 1:20 PM CAPTAIN/AIRLINE PILOT 2 Units Left Arm insulin lispro (HumaLOG) [...] Units Left Arm Given 09/01/2017 8:49 AM CAPTAIN/AIRLINE PILOT 6 Units Abdominal Tissue Given 08/31/2017 9:34 PM CAPTAIN/AIRLINE PILOT 08/29/2017 9:09 AM CAPTAIN/AIRLINE PILOT 3 mL ipratropium-albuterol (DUO-NEB) 0.5-3 Given mg/3 mL nebulizer solution 3 mL 3 mL, Inhalation, Once, [place] 08/29/17 at 0902, For 1 dose 08/29/2017 10:15 AM CAPTAIN/AIRLINE PILOT 3 mL ipratropium-albuterol (DUO-NEB) 0.5-3 Given mg/3 mL nebulizer solution 3 mL 3 mL, Inhalation, Once, Wed08/29/17 at 1006, For 1 dose 09/01/2017 11:29 AM CAPTAIN/AIRLINE PILOT 3 mL ipratropium-albuterol (DUO-NEB) 0.5-3 Given mg/3 mL nebulizer solution 3 mL 3 mL, Inhalation, 4 times daily, First dose on Wed08/29/17 at 1333 3 mL Given 09/01/2017 7:57 AM CAPTAIN/AIRLINE PILOT 3 mL Given 08/31/2017 8:53 PM CAPTAIN/AIRLINE PILOT 08/31/2017 4:32 AM CAPTAIN/AIRLINE PILOT 3 mL ipratropium-albuterol (DUO-NEB) 0.5-3 Given mg/3 mL nebulizer solution 3 mL 3 mL, Inhalation, As needed, wheezing, Starting Wed08/31/17 at 0429 08/30/2017 3:10 PM CAPTAIN/AIRLINE PILOT 15 mg ketorolac (TORADOL) injection 15 mg Given 15 mg, Intravenous, Every 6 hours PRN, moderate pain (pain score 4-6), severe pain (pain score 7-10), Starting Wed08/29/17 at 1331, For 5 doses 15 mg Given 08/30/2017 9:00 AM CAPTAIN/AIRLINE PILOT 15 mg Given 08/30/2017 2:55 AM CAPTAIN/AIRLINE PILOT 08/31/2017 9:33 PM CAPTAIN/AIRLINE PILOT 800 mg metaxalone (SKELAXIN) tablet 800 mg Given 800 mg, Oral, Nightly, First dose on 08/29/17 at 2100 800 mg Given 08/30/2017 8:13 PM CAPTAIN/AIRLINE PILOT 800 mg Given 08/29/2017 8:08 PM CAPTAIN/AIRLINE PILOT 08/29/2017 9:22 AM CAPTAIN/AIRLINE PILOT 125 mg methylPREDNISolone sod suc(PF) Given (Solu-MEDROL) injection 125 mg 125 mg, Intravenous, Once, [place] 08/29/17 a t 0902, For 1 dose 08/31/2017 9:13 AM CAPTAIN/AIRLINE PILOT 40 mg methylPREDNISolone sod suc(PF) Given (Solu-MEDROL) injection 40 mg 40 mg, Intravenous, Every 8 hours scheduled, First dose (after last modification) on Wed08/30/17 at 1700 40 mg Given 08/31/2017 1:06 AM CAPTAIN/AIRLINE PILOT 40 mg Given 08/30/2017 3:10 PM CAPTAIN/AIRLINE PILOT 08/31/2017 6:38 PM CAPTAIN/AIRLINE PILOT 40 mg methylPREDNISolone sod suc(PF) Given (Solu-MEDROL) injection 40 mg 40 mg, Intravenous, Every 8 hours scheduled, First dose (after last modification) on Wed08/31/17 at 1700, Fo r 1 dose 09/01/2017 8:49 AM CAPTAIN/AIRLINE PILOT 100 mg metoprolol tartrate (LOPRESSOR) tablet Given 100 mg 100 mg, Oral, 2 times daily, First dose on Wed08/29/17 at 2100 100 mg Given 08/31/2017 9:33 PM CAPTAIN/AIRLINE PILOT 100 mg Given 08/31/2017 9:13 AM CAPTAIN/AIRLINE PILOT 08/29/2017 9:23 AM CAPTAIN/AIRLINE PILOT 4 mg morphine 4 mg/mL injection 4 mg Given 4 mg, Intravenous, Once, [place] 08/29/17 at 0902, For 1 dose 09/01/2017 8:50 AM CAPTAIN/AIRLINE PILOT 75 mg oseltamivir (TAMIFLU) capsule 75 mg Given 75 mg, Oral, 2 times daily, Indications : INFLUENZA , First dose on Wed08/29/17 at 1355, For 5 days 75 mg Given 08/31/2017 9:33 PM CAPTAIN/AIRLINE PILOT 75 mg Given 08/31/2017 9:14 AM CAPTAIN/AIRLINE PILOT 08/31/2017 9:33 PM CAPTAIN/AIRLINE PILOT 40 mg pravastatin (PRAVACHOL) tablet 40 mg Given 40 mg, Oral, Nightly, First dose on 08/29/17 at 2100 40 mg Given 08/30/2017 8:13 PM CAPTAIN/AIRLINE PILOT 40 mg Given 08/29/2017 8:08 PM CAPTAIN/AIRLINE PILOT 08/30/2017 8:30 AM CAPTAIN/AIRLINE PILOT 40 mg predniSONE (DELTASONE) tablet 40 mg Given 40 mg, Oral, Daily, First dose on Wed08/30/17 at 0900, For 5 days, Give with food to reduce GI upset, 09/01/2017 8:50 AM CAPTAIN/AIRLINE PILOT 40 mg predniSONE (DELTASONE) tablet 40 mg Given 40 mg, Oral, Daily, First dose on Wed09/01/17 at 0900, Give with food to reduce GI upset, 09/01/2017 8:49 AM CAPTAIN/AIRLINE PILOT 5 mL promethazine-codeine (PHENERGAN with Given CODEINE) 6.25-10 mg/5 mL syrup 5 mL 5 mL, Oral, Every 4 hours PRN, cough, Starting Wed08/30/17 at 1315 5 mL Given 08/31/2017 9:34 PM CAPTAIN/AIRLINE PILOT 5 mL Given 08/31/2017 3:56 PM CAPTAIN/AIRLINE PILOT 08/31/2017 5:17 AM CAPTAIN/AIRLINE PILOT 50 mL/hr 50 mL/hr sodium chloride 0.9% infusion New Bag 50 mL/hr, Intravenous, Continuous, Starting 08/29/17 at 1125, For 48 hours 50 mL/hr 50 mL/hr New Bag 08/30/2017 9:00 AM CAPTAIN/AIRLINE PILOT 50 mL/hr 50 mL/hr New Bag 08/29/2017 2:12 PM CAPTAIN/AIRLINE PILOT 09/01/2017 10:50 AM CAPTAIN/AIRLINE PILOT 50 mg traMADol (ULTRAM) tablet 50 mg Given 50 mg, Oral, Every 6 hours PRN, mild pain (pain score 1-3), moderate pain (pain score 4-6), Starting Wed08/30/17 a t 2150 50 mg Given 08/31/2017 9:33 PM CAPTAIN/AIRLINE PILOT 50 mg Given 08/31/2017 12:11 PM CAPTAIN/AIRLINE PILOT documented in this encounter Additional Health Concerns Last Indicated Resolved Time Infection Onset Date 08/30/2017 04/19/2018 12:13 PM CDT Influenza 08/30/2017 documented as of this encounter
--- OUTSIDE RECORDS SUMMARY | 2020-03-12 09:16 | XMS REPORT | Encounter Summary ---
Author Author [facility] Organization [facility] Address Unknown Phone Unavailable Care Team Providers Care Recovery Agent Name Role Phone Ebony Sharp MD PCP Encounter Details Care Team Description Date Type Department Adelaida Olivas MD [address] [facility] [address] [place] [address] [phone] 08/05/2017 Hist-Other [facility] [address] [place] [address] Social History Date Tobacco Use Types Packs/Day [...] XR ANKLE LEFT Routine 08/05/2017 4:11 PM LIABILITY CLAIMS EXAMINER documented in this encounter Results * XR Ankle left (08/05/2017 4:11 PM LIABILITY CLAIMS EXAMINER) Specimen Performing Organization Address City/State/Zipcode Ph one Number [place] documented in this encounter Visit Diagnoses Not on filedocumented in this encounter Additional Health Concerns Last Indicated Resolved Time Infection Onset Date 08/30/2017 04/19/2018 12:13 PM CDT Influenza 08/30/2017 documented as of this encounter
--- OUTSIDE RECORDS SUMMARY | 2020-03-12 09:16 | XMS REPORT | Encounter Summary ---
Author Author [facility] Organization [facility] Address Unknown Phone Unavailable Care Team Providers Care Industrial Eng Name Role Phone Ebony Sharp MD PCP Encounter Details Care Team Description Date Type Department Adelaida Olivas MD [address] [facility] [address] [place], [place] [id number] 07/14/2017 Hist-Transcript [facility] Orth[facility] ion Encounter Specialists [address] [facility] [address] [place], [place] [address] Social History Date Tobacco Use Types Packs/Day [...] * Juarez Noble - 07/14/2017 11:46 AM BELLHOP CAPTAIN - History of Present Illness Mrs. Patten [...] is pedis pulse. Impression LEFT ANKLE PAIN (XDA94-U26.572) CONTRACTURE OF ANKLE JOINT LEFT (TGK84-I02.572) PSEUDARTHROSIS AFTER FUSION OR ARTHRODESIS (OHH42-A50.0) Status post left ankle arthrodesis. Plan At [...] 1 po q daily VITAMIN D (ERGOCALCIFEROL) 14541 UNIT ORAL CAPSULE (ERGOCALCIFEROL) 1 po q [...] used: Print then Give to Patient RxID: [id number] NUCYNTA 50 MG ORAL TABLET (TAPENTADOL HCL) One PO Q 3-4 hours PRN pain #60 Unde fined x 0 Entered by: Jennifer Patino Authorized by: Adelaida Olivas MD Signed by: Jennifer Patino on 07/14/2017 Method used: Print then Give to Patient RxID: [id number] Vital Signs Ht: 62 in. Wt: 236 [...] CDT Influenza 08/30/2017 08/30/2019 08/30/2019 1:09 PM BELLHOP CAPTAIN Influenza - Rule Out 08/30/2019 08/31/2019 09/17/2019 8:17 AM BELLHOP CAPTAIN RSV 08/31/2019 documented as of this encounter
--- OUTSIDE RECORDS SUMMARY | 2020-03-12 09:16 | XMS REPORT | Encounter Summary ---
Author Author Organization Address Unknown Phone Unavailable Care Team Providers Care Media Liaison Officer Name Role Phone Ebony Sharp MD PCP Encounter Details Care Team Description Date Type Department Adelaida Olivas MD [address] [facility] [address] [place], [place] [id number] 08/26/2017 Hist-Transcript [place] [facility] ion Encounter Specialists [address] [facility] [address] [place], [place] [address] Social History Date Tobacco Use Types Packs/Day [...] Adelaida Olivas MD - 08/26/2017 2:06 PM IRON WORKER APPRENTICE - History of Present Illness Ms. Patten [...] anterior joint line. 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 Plan At this [...] 1 po q daily VITAMIN D (ERGOCALCIFEROL) 69470 UNIT ORAL CAPSULE (ERGOCALCIFEROL) 1 po q [...] used: Print then Give to Patient RxID: [id number] Vital Signs Ht: 62 in. Wt: 236 [...] trates no overt evidence of bony subluxation. WORKER APPRENTICE documented in this encounter Plan of Treatment Not on filedocumented as of this encounter Visit Diagnoses Not on filedocumented in this encounter Additional Health Concerns Last Indicated Resolved Time Infection Onset Date 08/30/2017 04/19/2018 12:13 PM CDT Influenza 08/30/2017 08/30/2019 08/30/2019 1:09 PM IRON WORKER APPRENTICE Influenza - Rule Out 08/30/2019 08/31/2019 09/17/2019 8:17 AM IRON WORKER APPRENTICE RSV 08/31/2019 documented as of this encounter
--- OUTSIDE RECORDS SUMMARY | 2020-03-12 09:16 | XMS REPORT | Encounter Summary ---
Author Author [facility] Organization [facility] Address Unknown Phone Unavailable Care Team Providers Care Railroad Auditor Name Role Phone Ebony Sharp MD PCP Encounter Details Care Team Description Date Type Department Adelaida Olivas MD [address] [facility] [address] [place] [address] 08/02/2017 [facility] [address] [facility] [address] [place] [address] Social History Date Tobacco Use [...] Adelaida Olivas MD - 08/02/2017 3:10 PM REELING MACHINE OPERATOR Phone Note Outgoing Call Call placed by: Edith Bautista on August 02, 2017 3:10 PM Summary of call: patient notified that CT has been approved, order has been fax ed to [facility] gave patient there phone number and mine so if they havent heard from them in two days they can follow up ING MACHINE OPERATOR documented in this encounter Plan of Treatment Not on filedocumented as of this encounter Visit Diagnoses Not on filedocumented in this encounter Additional Health Concerns Last Indicated Resolved Time Infection Onset Date 08/30/2017 04/19/2018 12:13 PM CDT Influenza 08/30/2017 08/30/2019 08/30/2019 1:09 PM REELING MACHINE OPERATOR Influenza - Rule Out 08/30/2019 08/31/2019 09/17/2019 8:17 AM REELING MACHINE OPERATOR RSV 08/31/2019 documented as of this encounter
--- OUTSIDE RECORDS SUMMARY | 2020-03-12 09:16 | XMS REPORT | Encounter Summary ---
Author Author [facility] Organization [facility] Address Unknown Phone Unavailable Care Team Providers Care Customer Service Security Officer Name Role Phone Ebony Sharp MD PCP Encounter Details Care Team Description Date Type Department Adelaida Olivas MD [address] [facility] [address] [place] [address] [phone] 08/26/2017 Hist-Other [facility] [address] [place] [address] Social History Date Tobacco Use Types Packs/Day [...] XR ANKLE LEFT Routine 08/26/2017 2:14 PM CLIN NURSE SPEC documented in this encounter Results * XR Ankle left (08/26/2017 2:14 PM CLIN NURSE SPEC) Specimen Performing Organization Address City/State/Zipcode Ph one Number [place] documented in this encounter Visit Diagnoses Not on filedocumented in this encounter Additional Health Concerns Last Indicated Resolved Time Infection Onset Date 08/30/2017 04/19/2018 12:13 PM CDT Influenza 08/30/2017 documented as of this encounter
--- OUTSIDE RECORDS SUMMARY | 2020-03-12 09:16 | XMS REPORT | Encounter Summary ---
Author Author [facility] Organization [facility] Address Unknown Phone Unavailable Care Team Providers Care Clipman Name Role Phone Ebony Sharp MD PCP Reason for Visit * Reason Comments Follow-up eldon l ankle/tlm [id number]: Appt. Reminder (08/24/2017 06:21 PM) Phone Call - Message Delivered (X=Answering Carlin e) Encounter Details Care Team Description Date Type Department Adelaida Olivas MD [address] [facility] [address] [place] [address] [phone] 08/26/2017 Hist-Appointmen Aide Orthopaedi c teresa Specialists [address] [facility] [address] [place] [address] Social History Date Tobacco Use Types Packs/Day [...]
--- OUTSIDE RECORDS SUMMARY | 2020-03-12 09:16 | XMS REPORT | Encounter Summary ---
Author Author [facility] Organization [facility] Address Unknown Phone Unavailable Care Team Providers Care Perioperative Manager Name Role Phone Ebony Sharp MD PCP Encounter Details Care Team Description Date Type Department Adelaida Olivas MD [address] [facility] [address] [place], [place] [id number] 08/05/2017 Hist-Transcript [place] [facility] ion Encounter Specialists [address] [facility] [address] [place], [place] [id number] Social History Date Tobacco Use Types Packs/Day [...] Adelaida Olivas MD - 08/05/2017 3:26 PM TRANSFER COORDINATOR - History of Present Illness Ms. Patten [...] pulse. Impression CONTRACTURE OF ANKLE JOINT LEFT (NQL09-K74.572) LEFT ANKLE PRIMARY OSTEOARTHRITIS (WVY41-Z74.072) DIABETES MELLITUS (ILD86-C10.9) Stable arthrodesis site without any overt evidence [...] 1 po q daily VITAMIN D (ERGOCALCIFEROL) 40953 UNIT ORAL CAPSULE (ERGOCALCIFEROL) 1 po q [...] used: Print then Give to Patient RxID: [id number] NUCYNTA 50 MG ORAL TABLET (TAPENTADOL HCL) One PO Q 3-4 hours PRN pain #60 x 0 Entered by: Sharona Scott Authorized by: Adelaida Olivas MD Signed by: Sharona Scott on 08/05/2017 Method used: Print then Give to Patient RxID: [id number] Vital Signs Ht: 62 in. Wt: 236 lbs. T: 97.6 deg F. T site: tympanic BMI: 43.512904 She was encourage to talk with her [...] to be stabl e tibiotalar arthrodesis site. SFER COORDINATOR documented in this encounter Plan of Treatment Not on filedocumented as of this encounter Visit Diagnoses Not on filedocumented in this encounter Additional Health Concerns Last Indicated Resolved Time Infection Onset Date 08/30/2017 04/19/2018 12:13 PM CDT Influenza 08/30/2017 08/30/2019 08/30/2019 1:09 PM TRANSFER COORDINATOR Influenza - Rule Out 08/30/2019 08/31/2019 09/17/2019 8:17 AM TRANSFER COORDINATOR RSV 08/31/2019 documented as of this encounter
--- OUTSIDE RECORDS SUMMARY | 2020-03-12 09:16 | XMS REPORT | Encounter Summary ---
Author Author [facility] Organization [facility] Address Unknown Phone Unavailable Care Team Providers Care Assistant Director Of Residence Life Name Role Phone Ebony Sharp MD PCP Encounter Details Care Team Description Date Type Department Ebony Sharp MD [address] [facility] [address] [place], [place] [address] 07/22/2017 [facility] [address] [facility] [address] [place] [address] Social History Date Tobacco Use [...]
--- OUTSIDE RECORDS SUMMARY | 2020-03-12 09:16 | XMS REPORT | Encounter Summary ---
Author Author [facility] Organization [facility] Address Unknown Phone Unavailable Care Team Providers Care Gold Leaf Roller Name Role Phone Ebony Sharp MD PCP Encounter Details Care Team Description Date Type Department Adelaida Olivas MD [address] [facility] [address] [place] [address] 08/04/2017 [facility] [address] [facility] [address] [place], [place] [address] Social History Date Tobacco Use Types Packs/Day [...] Adelaida Olivas MD - 08/04/2017 10:04 AM AUTOMOTIVE ENGINEERING TEACHER Phone Note Outgoing Call Call placed by: Lilian Greenwood on August 04, 2017 10:04 AM Summary of call: Patient requesting status of nucynta refill. [phone] Follow-up for Phone Call Follow-up Details: I [...] Lopez on August 04, 2017 1:59 PM MOTIVE ENGINEERING TEACHER documented in this encounter Plan of Treatment Not on filedocumented as of this encounter Visit Diagnoses Not on filedocumented in this encounter Additional Health Concerns Last Indicated Resolved Time Infection Onset Date 08/30/2017 04/19/2018 12:13 PM CDT Influenza 08/30/2017 08/30/2019 08/30/2019 1:09 PM AUTOMOTIVE ENGINEERING TEACHER Influenza - Rule Out 08/30/2019 08/31/2019 09/17/2019 8:17 AM AUTOMOTIVE ENGINEERING TEACHER RSV 08/31/2019 documented as of this encounter
[2020-03-12 09:17] LABS: BASOPHILS % (AUTO) 0 % (0-10); EOSINOPHILS # (AUTO) 0.2 10^3/uL (0.0-0.3); EOSINOPHILS % (AUTO) 2 % (0-10); HEMATOCRIT 43 % (35-52); HEMOGLOBIN 14.1 G/DL (11.5-16.0); LYMPHOCYTES # (AUTO) 2.6 X 10^3 (1.0-4.0); LYMPHOCYTES % (AUTO) 27 % (12-44); MEAN CORPUSCULAR HEMOGLOBIN 32 PG (25-34); MEAN CORPUSCULAR HGB CONC 33 G/DL (32-36); MEAN CORPUSCULAR VOLUME 97 FL (80-99); MONOCYTES # (AUTO) 0.8 X 10^3 (0.0-1.0); MONOCYTES % (AUTO) 9 % (0-12); NEUTROPHILS % (AUTO) 62 % (42-75); PLATELET COUNT 184 10^3/uL (130-400); RED CELL DISTRIBUTION WIDTH 14.9 % (10.0-14.5); WHITE BLOOD COUNT 9.7 10^3/uL (4.3-11.0)
--- OUTSIDE RECORDS SUMMARY | 2020-03-12 09:17 | XMS REPORT | Encounter Summary ---
Author Author [facility] Organization [facility] Address Unknown Phone Unavailable Care Team Providers Care Electrical Installer Name Role Phone Ebony Sharp MD PCP Reason for Visit * Reason Comments Follow-up Margot left ankle/ 06/09/2017 bcTVX: Appt. Reminder (06/14/2017 06:41 PM) Phone Call - Responded "Yes" (Y=Answere d - Yes) Encounter Details Care Team Description Date Type Department Adelaida Olivas MD [address] [facility] [address] [place] [address] [phone] 06/16/2017 Hist-Appointmen Aide [facility] Specialists [address] [facility] [address] [place] [address] Social History Date Tobacco Use Types Packs/Day [...]
--- OUTSIDE RECORDS SUMMARY | 2020-03-12 09:17 | XMS REPORT | Encounter Summary ---
Author Author [facility] Organization [facility] Address Unknown Phone Unavailable Care Team Providers Care Safety Attendant Name Role Phone Ebony Sharp MD PCP Encounter Details Care Team Description Date Type Department Ebony Sharp MD [address] [facility] [address] [place], [place] [id number] Type 2 diabetes mellitus with hyperglyce prasanna, 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) 07/09/2017 Lab [facility] [place] [address] [facility] [address] [facility] [place], [place] [address] Social History Date Tobacco Use Types Packs/Day [...] Ebony Sharp MD - 07/09/2017 12:50 PM INSTRUCTIONAL TECHNOLOGY DIRECTOR The a1c is much better when you lose weight! RUCTIONAL TECHNOLOGY DIRECTOR documented in this encounter Plan of Treatment Not on filedocumented as of this encounter Procedures Comments Procedure Name Priority Date/Time Associated Diag nosis HEMOGLOBIN A1C Routine 07/09/2017 Type 2 diabetes mellitus 12:57 PM INSTRUCTIONAL TECHNOLOGY DIRECTOR with hyperglycemia, 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) documented in this encounter Results * Hemoglobin A1C (07/09/2017 12:57 PM INSTRUCTIONAL TECHNOLOGY DIRECTOR) Hemoglobin A1C 7.5 (H) 4.0 - 5.6 % [facility] Comment: REGIONAL Non-diabetic 4.0 - LABORATORIES 5.6 % Prediabetes 5.7 - 6.4 % Diabetes >= 6.5 % Specimen Blood Performing Organization Address City/State/Zipcode Ph one Number [facility] [address] [address] LABORATORIES documented in this encounter Visit Diagnoses Diagnosis Type 2 diabetes mellitus with hyperglyc emia, 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) documented in this encounter
--- OUTSIDE RECORDS SUMMARY | 2020-03-12 09:17 | XMS REPORT | Encounter Summary ---
Author Author [facility] Organization [facility] Address Unknown Phone Unavailable Care Team Providers Care Acid Bleacher Name Role Phone Ebony Sharp MD PCP Encounter Details Care Team Description Date Type Department Adelaida Olivas MD [address] [facility] [address] [place] [address] 06/10/2017 [facility] [address] [facility] [address] [place], [place] [address] Social History Date Tobacco Use Types Packs/Day [...] her Oxycodone. Plea call patient back at [phone]. Call taken by: Alec Jimenez on June [...] used: Print then Give to Patient RxID: [id number] OXYCODONE HCL 5 MG ORAL TABLET (OXYCODONE HCL) 1 po q 8 hours not to exceed 3 pe r day #0 x 0 Entered by: Rg Lopez Authorized by: Adelaida Olivas MD Signed by: Rg Lopez on 06/10/2017 Method used: Print then Give to Patient RxID: [id number] OXYCODONE HCL 5 MG ORAL TABLET (OXYCODONE HCL) 1 po q 8 hours not to exced 3 per day #40 Tablet x 0 Entered by: Rg Lopez Authorized by: Adeliada Olivas MD Signed by: Rg Lpoez on 06/10/2017 Method used: Print then Give to Patient RxID: [id number] documented in this encounter Plan of Treatment Not on filedocumented as of this encounter Visit Diagnoses Not on filedocumented in this encounter Additional Health Concerns Last Indicated Resolved Time Infection Onset Date 08/30/2017 04/19/2018 12:13 PM CDT Influenza 08/30/2017 08/30/2019 08/30/2019 1:09 PM INSPECTOR SHEET METAL PARTS Influenza - Rule Out 08/30/2019 08/31/2019 09/17/2019 8:17 AM INSPECTOR SHEET METAL PARTS RSV 08/31/2019 documented as of this encounter
--- OUTSIDE RECORDS SUMMARY | 2020-03-12 09:17 | XMS REPORT | Encounter Summary ---
Author Author [facility] Organization [facility] Address Unknown Phone Unavailable Care Team Providers Care Portfolio Assistant Name Role Phone Ebony Sharp MD PCP Reason for Visit * Reason Comments Other Encounter Details Care Team Description Date Type Department Honey Cardoza, PUBLIC HEALTH WORKER [address] [facility] [address] [place] [address] [phone] Other 05/25/2017 Refill [facility] [address] [facility] [place] [address] Social History Date Tobacco Use Types Packs/Day [...] CDT Influenza 08/30/2017 08/30/2019 08/30/2019 1:09 PM SPORTS EQUIPMENT SUPERVISOR Influenza - Rule Out 08/30/2019 08/31/2019 09/17/2019 8:17 AM SPORTS EQUIPMENT SUPERVISOR RSV 08/31/2019 documented as of this encounter
--- OUTSIDE RECORDS SUMMARY | 2020-03-12 09:17 | XMS REPORT | Encounter Summary ---
Author Author [facility] Organization [facility] Address Unknown Phone Unavailable Care Team Providers Care Manager Employment Name Role Phone Ebony Sharp MD PCP Encounter Details Care Team Description Date Type Department Adelaida Olivas MD [address] [facility] [address] [place] [address] [phone] 05/13/2017 Hist-Other [facility] [address] [place] [address] Social History Date Tobacco Use Types Packs/Day [...]
--- OUTSIDE RECORDS SUMMARY | 2020-03-12 09:17 | XMS REPORT | Encounter Summary ---
Author Author [facility] Organization [facility] Address Unknown Phone Unavailable Care Team Providers Care Manager Enterprise Name Role Phone Ebony Sharp MD PCP Encounter Details Care Team Description Date Type Department Adelaida Olivas MD [address] [facility] [address] [place], [place] [address] 05/27/2017 Hist-Transcript Aide Orthopaedi c ion Encounter Specialists [address] [facility] [address] [place], [place] [address] Social History Date Tobacco Use Types Packs/Day [...] encounter Progress Notes * Juarez Noble - 05/27/2017 3:53 PM CDT - History [...] complaints. Impression CONTRACTURE OF ANKLE JOINT LEFT ([id number]) NONUNION FRACTURE (OII53-N37.8) Status post tibiotalar arthrodesis, currently doing well. [...] 1 po q daily VITAMIN D (ERGOCALCIFEROL) 73048 UNIT CAPS (ERGOCALCIFEROL) 1 po q weekly [...] used: Print then Give to Patient RxID: [id number] CELEBREX 200 MG CAPS (CELECOXIB) 1 pill Daily with food #30[Unspecified] x 0 Entered by: Jennifer Patino Authorized by: Adelaida Olivas MD Signed by: Jennifer Patino on 05/27/2017 Method used: Electronically to [facility]* (retail) [address] [place] [address] Ph: [phone] Fax: [phone] RxID: [id number] Vital Signs Ht: 62 in. Wt: 236 [...] CDT Influenza 08/30/2017 08/30/2019 08/30/2019 1:09 PM HEAD NURSE Influenza - Rule Out 08/30/2019 08/31/2019 09/17/2019 8:17 AM HEAD NURSE RSV 08/31/2019 documented as of this encounter
--- OUTSIDE RECORDS SUMMARY | 2020-03-12 09:17 | XMS REPORT | Encounter Summary ---
Author Author [facility] Organization [facility] Address Unknown Phone Unavailable Care Team Providers Care Strickler Attendant Name Role Phone Ebony Sharp MD PCP Reason for Visit * Reason Comments Follow-up 3 month FU Encounter Details Care Team Description Date Type Department Ebony Sharp MD [address] [facility] [address] [place] [address] Type 2 diabetes mellitus with hyperglyce prasanna, 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) (Primary Dx); COPD exacerbation (HCC); SASHA (obstructive sleep apnea); Benign essential HTN; Hyperlipidemia, unspecified hyperlipidemia type; Routine adult health maintenance 07/09/2017 Office Visit [facility] [address] [facility] [address] [place] [address] Social History Date Tobacco Use [...] Comments Vital Sign 136/84 07/09/2017 12:16 PM AEROSPACE STRESS ENGINEER Blood Pressure 74 07/09/2017 12:16 PM AEROSPACE STRESS ENGINEER Pulse - - Temperature - - Respiratory Rate 95% 07/09/2017 12:16 PM AEROSPACE STRESS ENGINEER Oxygen Saturation - - Inhaled Oxygen Concentration 93.9 kg (207 lb) 07/09/2017 12:16 PM AEROSPACE STRESS ENGINEER Weight 157.5 cm (5' 2") 07/09/2017 12:16 PM AEROSPACE STRESS ENGINEER Height 37.86 07/09/2017 12:16 PM AEROSPACE STRESS ENGINEER Body Mass Index documented in this encounter Progress Notes * Ebony Sharp MD - 07/09/2017 11:30 AM AEROSPACE STRESS ENGINEER CC: Follow-up (3 month FU ) HPI : Caren Patten is a 66 y.o. female who presents with complaints of Follow-up (3 month FU ) 1. Surgery clearance - she is going to have bariatric surgery at [facility] in August. She is excited about it. [...] Also need to keep in mind her scientologist - Jehovah Witness - she will not [...] HTN, SASHA, COPD - all stable. 3. - discussed surgery (see above). Give her flu shot right now. Surgical clearance - she is going to have bariatric surgery at [facility] august. She will need to have her blood sugars, blood pressures, O2 closely monitored with surgery, however, with a normal stress test and 0 calcium score, I do think that she is low-intermediate risk for the intermediate-high risk surg patti. Also need to keep in mind her scientologist - Jehovah Witness - she will not be able to take blood products. bEony Sharp MD SPACE STRESS ENGINEER documented in this encounter Plan of Treatment Not on filedocumented as of this encounter Results * Hemoglobin A1C (07/09/2017 12:57 PM AEROSPACE STRESS ENGINEER) Hemoglobin A1C 7.5 (H) 4.0 - 5.6 % [facility] Comment: REGIONAL Non-diabetic 4.0 - LABORATORIES 5.6 % Prediabetes 5.7 - 6.4 % Diabetes >= 6.5 % Specimen Blood Performing Organization Address City/State/Zipcode Ph one Number [address] [address] LABORATORIES documented in this encounter Visit Diagnoses Diagnosis Type 2 diabetes mellitus with hyperglyc emia, 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) COPD exacerbation ([facility]) Obstructive chronic bronchitis with exa cerbation SASHA (obstructive sleep apnea) Obstructive sleep apnea (adult) (pediat amita) Benign essential HTN Hyperlipidemia, unspecified hyperlipide prasanna type Routine adult health maintenance documented in this encounter
--- OUTSIDE RECORDS SUMMARY | 2020-03-12 09:17 | XMS REPORT | Encounter Summary ---
Author Author [facility] Organization [facility] Address Unknown Phone Unavailable Care Team Providers Care Cardiac Care Unit Nurse Name Role Phone Ebony Sharp MD PCP Reason for Visit * Reason Comments Other Encounter Details Care Team Description Date Type Department Ebony Sharp MD [address] [facility] [address] [place] [address] Other 07/10/2017 Refill [facility] Prim[facility] y Care - East [address] [facility] [address] [place], [place] [id number] Social History Date Tobacco Use Types Packs/Day [...]
--- OUTSIDE RECORDS SUMMARY | 2020-03-12 09:17 | XMS REPORT | Encounter Summary ---
Author Author [facility] Organization [facility] Address Unknown Phone Unavailable Care Team Providers Care Ticket Taker Name Role Phone Ebony Sharp MD PCP Encounter Details Care Team Description Date Type Department Adelaida Olivas MD [address] [facility] [address] [place] [address] [phone] 06/16/2017 Hist-Other [facility] Hospit [facility] [address] [place] [address] Social History Date Tobacco Use Types Packs/Day [...]
--- OUTSIDE RECORDS SUMMARY | 2020-03-12 09:17 | XMS REPORT | Encounter Summary ---
Author Author [facility] Organization [facility] Address Unknown Phone Unavailable Care Team Providers Care Street Light Servicer Helper Name Role Phone Ebony Sharp MD PCP Encounter Details Care Team Description Date Type Department Adelaida Olivas MD [address] [facility] [address] [place] [address] 06/07/2017 [facility] [address] [facility] [address] [place] [address] Social History Date Tobacco Use [...] the patient. Please call Esperanza back at [phone] Call taken by: Daphne Roa on June 07, 2017 11:02 AM Follow-up for Phone Call Follow-up Details: I spoke with the patient's daughter and she said the patient got a car and needs a new placard because she did not use the form we gave her o n 04/09. The patients daughter will pickling operator the new paperwork in the office. Follow-up by: Rg Lopez on June 07, 2017 11:43 AM documented in this encounter Plan of Treatment Not on filedocumented as of this encounter Visit Diagnoses Not on filedocumented in this encounter Additional Health Concerns Last Indicated Resolved Time Infection Onset Date 08/30/2017 04/19/2018 12:13 PM CDT Influenza 08/30/2017 08/30/2019 08/30/2019 1:09 PM EXPLOSIVE ORDNANCE DISPOSAL SPECIALIST Influenza - Rule Out 08/30/2019 08/31/2019 09/17/2019 8:17 AM EXPLOSIVE ORDNANCE DISPOSAL SPECIALIST RSV 08/31/2019 documented as of this encounter
--- OUTSIDE RECORDS SUMMARY | 2020-03-12 09:17 | XMS REPORT | Encounter Summary ---
Author Author [facility] Organization [facility] Address Unknown Phone Unavailable Care Team Providers Care Insurance Healthcare Consultant Name Role Phone Ebony Sharp MD PCP Reason for Visit * Reason Comments Medication Refill Encounter Details Care Team Description Date Type Department Jani Schultz LPN Medication Refill 06/24/2017 Refill [facility] Primar y Care - East [address] [facility] [address] [place], [place] [id number] Social History Date Tobacco Use Types Packs/Day [...]
--- OUTSIDE RECORDS SUMMARY | 2020-03-12 09:17 | XMS REPORT | Encounter Summary ---
Author Author [facility] Organization [facility] Address Unknown Phone Unavailable Care Team Providers Care Senior Group Manager Name Role Phone Ebony Sharp MD PCP Encounter Details Care Team Description Date Type Department Adelaida Olivas MD [address] [facility] [address] [place] [address] 06/25/2017 [facility] [address] [facility] [address] [place] [address] Social History Date Tobacco Use [...] for Nucynta. Please call patient back at [phone] Call taken by: Daphne Roa on June 25, 2017 3:26 PM Follow-up for Phone Call Follow-up Details: Received prior authorization request from Felisha ) for Nucynta. Submitted on [employer]. Called patient and let her know we [...] Jimenez on June 28, 2017 9:15 AM ITY CONTROL CLERK documented in this encounter Plan of Treatment Not on filedocumented as of this encounter Visit Diagnoses Not on filedocumented in this encounter Additional Health Concerns Last Indicated Resolved Time Infection Onset Date 08/30/2017 04/19/2018 12:13 PM CDT Influenza 08/30/2017 08/30/2019 08/30/2019 1:09 PM QUALITY CONTROL CLERK Influenza - Rule Out 08/30/2019 08/31/2019 09/17/2019 8:17 AM QUALITY CONTROL CLERK RSV 08/31/2019 documented as of this encounter
--- OUTSIDE RECORDS SUMMARY | 2020-03-12 09:17 | XMS REPORT | Encounter Summary ---
Author Author [facility] Organization [facility] Address Unknown Phone Unavailable Care Team Providers Care Hockey Scout Name Role Phone Ebony Sharp MD PCP Encounter Details Care Team Description Date Type Department Adelaida Olivas MD [address] [facility] [address] [place] [address] [phone] 05/27/2017 Hist-Other [facility] Hospit al [address] [place] [address] Social History Date Tobacco Use Types Packs/Day [...]
--- OUTSIDE RECORDS SUMMARY | 2020-03-12 09:17 | XMS REPORT | Encounter Summary ---
Author Author [facility] Organization [facility] Address Unknown Phone Unavailable Care Team Providers Care Traveling Sales Representative Name Role Phone Ebony Sharp MD PCP Reason for Referral * Diagnostic Imaging (Routine) Referred By Contact Referred To Contact Status Reason Specialty Diagnoses / Procedures Adelaida Olivas MD [address] [facility] [address] [place] [address] Closed Diagnoses Left ankle pain P rocedures US Venous Duplex Lower Extremity left Reason for Visit * Diagnostic Imaging (Routine) Referred By Contact Referred To Contact Status Reason Specialty Diagnoses / Procedures Adelaida Olivas MD [address] [facility] [address] [place] [address] Closed Diagnoses Left ankle pain P rocedures US Venous Duplex Lower Extremity left Encounter Details Care Team Description Date Type Department Adelaida Olivas MD [address] [facility] [address] [place], [place] [id number] Left ankle pain 06/16/2017 [facility] [address] [place], [place] [address] Social History Date Tobacco Use Types Packs/Day [...] of LEVI deep venous thrombosis. READING SITE: [facility] NOTE: Parts of this report were generated wit [employer] voice recognition software. J Digit Imagin2010;24(4):724-8. Narrative Performed At Patient: ISIAH BENÍTEZ Sex#: F # [id number] Jose#: [id number] Location: [facility] [place] Procedure Requested: [id number] US VENOU S DUPLEX LOWER EXTREMITY LEFT [...] 2:42 PM CDT Patient: ISIAH BENÍTEZ Sex#: F # [id number] Jose#: [id number] Location: [facility] [place] [facility] [place] Procedure Requested: [id number] US VENOUS DUPLEX LOWER EXTREMITY LEFT Reason [...] evidence of deep venous thrombosis. READING SITE: [facility] NOTE: Parts of this report were generated with voice recognition software. J Digit Imagin2010;24(4):724-8. Performing Organization Address City/State/Zipcode Ph one Number LEVI documented in this encounter Visit Diagnoses Diagnosis Left ankle pain Pain in joint, ankle and foot documented in this encounter
--- OUTSIDE RECORDS SUMMARY | 2020-03-12 09:17 | XMS REPORT | Encounter Summary ---
Author Author [facility] Organization [facility] Address Unknown Phone Unavailable Care Team Providers Care Yard Supervisor Name Role Phone Ebony Sharp MD PCP Encounter Details Care Team Description Date Type Department Adelaida Olivas MD [address] [facility] [address] [place] [address] [phone] 06/17/2017 Transcribe [facility] [address] [place] [address] Social History Date Tobacco Use Types Packs/Day [...] CDT Influenza 08/30/2017 08/30/2019 08/30/2019 1:09 PM JOCKEY VALET Influenza - Rule Out 08/30/2019 08/31/2019 09/17/2019 8:17 AM JOCKEY VALET RSV 08/31/2019 documented as of this encounter
--- OUTSIDE RECORDS SUMMARY | 2020-03-12 09:17 | XMS REPORT | Encounter Summary ---
Author Author [facility] Organization [facility] Address Unknown Phone Unavailable Care Team Providers Care Business Office Specialist Name Role Phone Ebony Sharp MD PCP Reason for Visit * Reason Comments Other Encounter Details Care Team Description Date Type Department Ebony Sharp MD [address] [facility] [address] [place], [place] [address] Other 07/14/2017 Refill [facility] Primar y Care - East [address] [facility] [address] [place], [place] [address] Social History Date Tobacco Use Types Packs/Day [...] CDT Influenza 08/30/2017 08/30/2019 08/30/2019 1:09 PM PIPE FITTER SUPERVISOR Influenza - Rule Out 08/30/2019 08/31/2019 09/17/2019 8:17 AM PIPE FITTER SUPERVISOR RSV 08/31/2019 documented as of this encounter
--- OUTSIDE RECORDS SUMMARY | 2020-03-12 09:17 | XMS REPORT | Encounter Summary ---
Author Author [facility] Organization [facility] Address Unknown Phone Unavailable Care Team Providers Care Engineering Administrator Name Role Phone Ebony Sharp MD PCP Encounter Details Care Team Description Date Type Department Adelaida Olivas MD [address] [facility] [address] [place] [address] [phone] 05/27/2017 Hist-Other [facility] Hospit al [address] [place] [address] Social History Date Tobacco Use Types Packs/Day [...]
--- OUTSIDE RECORDS SUMMARY | 2020-03-12 09:17 | XMS REPORT | Encounter Summary ---
Author Author [facility] Organization [facility] Address Unknown Phone Unavailable Care Team Providers Care Doula Name Role Phone Ebony Sharp MD PCP Encounter Details Care Team Description Date Type Department dAelaida Olivas MD [address] [facility] [address] [place] [address] 06/24/2017 [facility] [address] [facility] [address] [place], [place] [address] Social History Date Tobacco Use Types Packs/Day [...] out. Ple ase call patient back at [phone]. Call taken by: Aline Joy on June 24, 2017 1:50 PM Follow-up for Phone Call Follow-up Details: I spoke with the patient and she will pickle maker her Nucynta scr ipt. Follow-up by: Kari Young on June 24, 2017 3:24 PM documented in this encounter Plan of Treatment Not on filedocumented as of this encounter Visit Diagnoses Not on filedocumented in this encounter Additional Health Concerns Last Indicated Resolved Time Infection Onset Date 08/30/2017 04/19/2018 12:13 PM CDT Influenza 08/30/2017 08/30/2019 08/30/2019 1:09 PM VP DIGITAL MARKETING SOCIAL MEDIA AND CRM Influenza - Rule Out 08/30/2019 08/31/2019 09/17/2019 8:17 AM VP DIGITAL MARKETING SOCIAL MEDIA AND CRM RSV 08/31/2019 documented as of this encounter
--- OUTSIDE RECORDS SUMMARY | 2020-03-12 09:17 | XMS REPORT | Encounter Summary ---
Author Author [facility] Organization [facility] Address Unknown Phone Unavailable Care Team Providers Care Waterproofing Supervisor Name Role Phone Ebony Sharp MD PCP Reason for Visit * Reason Comments Follow-up Margot lt 05-13-17 HKW Encounter Details Care Team Description Date Type Department Adelaida Olivas MD [address] [facility] [address] [place] [address] [phone] 05/27/2017 Hist-Appointmen Aide Orthopaedi c t Specialists [address] [facility] [address] [place], [place] [address] Social History Date Tobacco Use Types Packs/Day [...]
--- OUTSIDE RECORDS SUMMARY | 2020-03-12 09:17 | XMS REPORT | Encounter Summary ---
Author Author [facility] Organization [facility] Address Unknown Phone Unavailable Care Team Providers Care Pourer Bull Ladle Name Role Phone Ebony Sharp MD PCP Encounter Details Care Team Description Date Type Department Adelaida Olivas MD [address] [facility] [address] [place], [place] [address] 06/16/2017 Hist-Transcript Aide Orthopaedi c ion Encounter Specialists [address] [facility] [address] [place], [place] [address] Social History Date Tobacco Use Types Packs/Day [...] with calf squeeze. Impression LEFT ANKLE PAIN ([id number]-F33.572) NONUNION FRACTURE (VQR80-Q57.8) NONUNION FRACTURE (PBS82-T98.8) Status post ankle revision, doing reasonably well [...] 1 po q daily VITAMIN D (ERGOCALCIFEROL) 85745 UNIT ORAL CAPSULE (ERGOCALCIFEROL) 1 po q [...] Mello on 06/16/2017 Method used: [facility] [address] [place] [address] Ph: [phone] Fax: [phone] RxID: [id number] PERCOCET 7.5-325 MG TABS (OXYCODONE-ACETAMINOPHEN) 1-2 PO Q 4-6 Hours PRN Pain #40 x 0 Entered by: Alice Mello Authorized by: Adelaida Olivas MD Signed by: Alice Mello on 06/16/2017 Method used: Print then Give to Patient RxID: [id number] Vital Signs Ht: 62 in. Wt: 236 [...] CDT Influenza 08/30/2017 08/30/2019 08/30/2019 1:09 PM RIVER BOAT CAPTAIN Influenza - Rule Out 08/30/2019 08/31/2019 09/17/2019 8:17 AM RIVER BOAT CAPTAIN RSV 08/31/2019 documented as of this encounter
--- OUTSIDE RECORDS SUMMARY | 2020-03-12 09:17 | XMS REPORT | Encounter Summary ---
Author Author [facility] Organization [facility] Address Unknown Phone Unavailable Care Team Providers Care Radioactive Waste Disposal Dispatcher Name Role Phone Ebony Sharp MD PCP Reason for Visit * Reason Comments Other Encounter Details Care Team Description Date Type Department Ebony Sharp MD [address] [facility] [address] [place], [place] [id number] Other 06/25/2017 Refill [facility] Primar y Care - East [address] [facility] [address] [place], [place] [address] Social History Date Tobacco Use Types Packs/Day [...] CDT Influenza 08/30/2017 08/30/2019 08/30/2019 1:09 PM LOIN TRIMMER Influenza - Rule Out 08/30/2019 08/31/2019 09/17/2019 8:17 AM LOIN TRIMMER RSV 08/31/2019 documented as of this encounter
--- OUTSIDE RECORDS SUMMARY | 2020-03-12 09:17 | XMS REPORT | Encounter Summary ---
Author Author [facility] Organization [facility] Address Unknown Phone Unavailable Care Team Providers Care Electronic Scale Assembler And Tester Name Role Phone Ebony Sharp MD PCP Reason for Visit * Reason Comments Other Encounter Details Care Team Description Date Type Department Ebony Sharp MD [address] [facility] [address] [place], [place] [address] Other 06/08/2017 Refill [facility] Primar y Care - East [address] [facility] [address] [place], [place] [address] Social History Date Tobacco Use Types Packs/Day [...] CDT Influenza 08/30/2017 08/30/2019 08/30/2019 1:09 PM DISEASE CASE MANAGER RN Influenza - Rule Out 08/30/2019 08/31/2019 09/17/2019 8:17 AM DISEASE CASE MANAGER RN RSV 08/31/2019 documented as of this encounter
--- OUTSIDE RECORDS SUMMARY | 2020-03-12 09:17 | XMS REPORT | Encounter Summary ---
Author Author [facility] Address Unknown Phone Unavailable Care Team Providers Care On Site Coordinator Name Role Phone Ebony Sharp MD PCP Reason for Visit * Reason Comments COPD feels like her chest is mor e tight and having more fatigue for the last few days Encounter Details Care Team Description Date Type Department Samuel Lee, DYNAMITE PACKING MACHINE FEEDER [address] [facility] [address] [place] [address] Shortness of breath (Primary Dx) 06/11/2017 Office Visit [facility] [address] [facility] [address] [place] [address] Social History Date Tobacco Use [...] not having energy. Report with history of BUFFERER D with oxygen therapy of 2.5L. Today's [...] 180 tablet 1 naloxone (NARCAN) 4 mg/actuation [place] Use 1 spray in each nostril as [...] ANKLE ARTHRODESIS; Surgeon: Adelaida Olivas MD; Location: [facility]; Service: Orthopedics; Later ality: Left; [...]
--- OUTSIDE RECORDS SUMMARY | 2020-03-12 09:17 | XMS REPORT | Encounter Summary ---
Author Author [facility] Organization [facility] Address Unknown Phone Unavailable Care Team Providers Care Mosaic Layer Name Role Phone Ebony Sharp MD PCP Reason for Visit * Reason Comments Follow-up eldon l ankle/t;m [id number]: Appt. Reminder (07/12/2017 06:14 PM) Phone Call - Responded "Yes" (Y=Answered - Yes) Encounter Details Care Team Description Date Type Department Adelaida Olivas MD [address] [facility] [address] [place] [address] [phone] 07/14/2017 Hist-Appointmen Aide [facility] t Specialists [address] [facility] [address] [place] [address] Social History Date Tobacco Use Types Packs/Day [...]
--- OUTSIDE RECORDS SUMMARY | 2020-03-12 09:17 | XMS REPORT | Encounter Summary ---
Author Author [facility] Organization [facility] Address Unknown Phone Unavailable Care Team Providers Care Didactic Program In Dietetics Director Name Role Phone Ebony Sharp MD PCP Encounter Details Care Team Description Date Type Department Jennifer Feng RN 06/08/2017 Telephone [facility] Primar y Care - East [address] [facility] [address] [place], [place] [address] Social History Date Tobacco Use Types [...]
--- OUTSIDE RECORDS SUMMARY | 2020-03-12 09:18 | XMS REPORT | Encounter Summary ---
Author Author [facility] Organization [facility] Address Unknown Phone Unavailable Care Team Providers Care Automobile Appraiser Name Role Phone Ebony Sharp MD PCP Reason for Visit * Reason Comments Other Encounter Details Care Team Description Date Type Department Ebony Sharp MD [address] [facility] [address] [place], [place] [id number] Other 04/13/2017 Refill [facility] Primar y Care - East [address] [facility] [address] [place], [place] [id number] Social History Date Tobacco Use Types Packs/Day [...]
--- OUTSIDE RECORDS SUMMARY | 2020-03-12 09:18 | XMS REPORT | Encounter Summary ---
Author Author [facility] Organization [facility] Address Unknown Phone Unavailable Care Team Providers Care Electric Motor Winder Name Role Phone Ebony Sharp MD PCP Encounter Details Care Team Description Date Type Department Francoise Hagan, RN 04/13/2017 Documentation [facility] Primar y Care - East [address] [facility] [address] [place], [place] [id number] Social History Date Tobacco Use Types Packs/Day [...]
--- OUTSIDE RECORDS SUMMARY | 2020-03-12 09:18 | XMS REPORT | Encounter Summary ---
Author Author [facility] Organization [facility] Address Unknown Phone Unavailable Care Team Providers Care Barber Apprentice Name Role Phone Ebony Sharp MD PCP Reason for Visit * Reason Comments Follow-up Margot lt 04-15-17 HKW TVX: Appt. Reminder (04/27/2017 06:18 PM) Phone Call - Message Delivered (X=Answering Ever [place]) Encounter Details Care Team Description Date Type Department Adelaida Olivas MD [address] [facility] [address] [place] [address] [phone] 04/29/2017 Hist-Appointmen Aide Steeleedi hanny moore Specialists [address] [facility] [address] [place] [address] Social History Date Tobacco Use Types Packs/Day [...]
--- OUTSIDE RECORDS SUMMARY | 2020-03-12 09:18 | XMS REPORT | Encounter Summary ---
Author Author [facility] Organization [facility] Address Unknown Phone Unavailable Care Team Providers Care Remediation Bioanalytics Consultant Name Role Phone Ebony Sharp MD PCP Reason for Visit * Reason Comments Other Encounter Details Care Team Description Date Type Department Ebony Sharp MD [address] [facility] [place] [address] [place], [place] [id number] Other 05/06/2017 Refill [facility] Primar y Care - East [address] [facility] [address] [place], [place] [id number] Social History Date Tobacco Use Types Packs/Day [...] Influenza 08/30/2017 08/30/2019 08/30/2019 1:09 PM SUPERVISOR UNDERWRITING CLERKS Influenza - Rule Out 08/30/2019 08/31/2019 09/17/2019 8:17 AM SUPERVISOR UNDERWRITING CLERKS RSV 08/31/2019 documented as of this encounter
--- OUTSIDE RECORDS SUMMARY | 2020-03-12 09:18 | XMS REPORT | Encounter Summary ---
Author Author [facility] Organization [facility] Address Unknown Phone Unavailable Care Team Providers Care Apprentice Plant Attendant Name Role Phone Ebony Sharp MD PCP Encounter Details Care Team Description Date Type Department Adelaida Olivas MD [address] [facility] [address] [place] [address] [phone] 04/15/2017 Hist-Other [facility] [address] [place] [address] Social History Date Tobacco Use Types Packs/Day [...]
--- OUTSIDE RECORDS SUMMARY | 2020-03-12 09:18 | XMS REPORT | Encounter Summary ---
Author Author [facility] Organization [facility] Address Unknown Phone Unavailable Care Team Providers Care Rock Wool Applicator Name Role Phone Ebony Sharp MD PCP Encounter Details Care Team Description Date Type Department Adelaida Olivas MD [address] [facility] [address] [place], [place] [id number] 05/13/2017 Hist-Transcript Aide Orthopaedi c ion Encounter Specialists [address] [facility] [address] [place], [place] [address] Social History Date Tobacco Use Types Packs/Day [...] pulse. 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 Plan At this point, [...] 1 po q daily VITAMIN D (ERGOCALCIFEROL) 68231 UNIT CAPS (ERGOCALCIFEROL) 1 po q weekly [...] used: Print then Give to Patient RxID: [id number] OXYCONTIN 10 MG T12A (OXYCODONE HCL) 1 tablet PO BID PRN #40 x 0 Entered by: Sharona Scott Authorized by: Adelaida Olivas MD Signed by: Sharona Scott on 05/13/2017 Method used: Print then Give to Patient RxID: [id number] Vital Signs Ht: 62 in. Wt: 236 [...] CDT Influenza 08/30/2017 08/30/2019 08/30/2019 1:09 PM CLAY MINE CUTTING MACHINE OPERATOR Influenza - Rule Out 08/30/2019 08/31/2019 09/17/2019 8:17 AM CLAY MINE CUTTING MACHINE OPERATOR RSV 08/31/2019 documented as of this encounter
--- OUTSIDE RECORDS SUMMARY | 2020-03-12 09:18 | XMS REPORT | Encounter Summary ---
Author Author [facility] Organization [facility] Address Unknown Phone Unavailable Care Team Providers Care Type Rolling Machine Operator Name Role Phone Ebony Sharp [...] of insulin (HCC) TAZ RNCC) 04/13/2017 Telephone [facility] [address] [facility] [address] [place] [address] Social History Date Tobacco Use [...] Hagan RN - 04/13/2017 8:18 AM CDT [facility] HOSPITAL FOLLOW UP / TRANSITIONAL CARE COORDINATION PATIENT NAME/DATE OF Caren Patten (1950) DATE OF LAST OFFICE VISIT: 04/08/17 Lila ( surgery clearance) FACILITY/ADMISSION DATE: 04/09/17 [facility] DISCHARGE DATE/DISPOSITION: 04/12/17 (home self care) DISCHARGE DIAGNOSIS: Type 2 diabetes mellitus with hyperglycemia, with long-ter m current use of insulin ([facility], [facility] COURSE: Presented to hospital for elective [...] call. Appt scheduled w/ PCP. ADDITIONAL NOTES: [facility] DIRECTOR CAREER: Francoise Hagan RN documented in this encounter Plan of Treatment Not on filedocumented as of this encounter Visit Diagnoses Not on filedocumented in this encounter
--- OUTSIDE RECORDS SUMMARY | 2020-03-12 09:18 | XMS REPORT | Encounter Summary ---
Author Author [facility] Organization [facility] Address Unknown Phone Unavailable Care Team Providers Care Admissions Counselor Name Role Phone Ebony Sharp MD PCP Encounter Details Care Team Description Date Type Department Adelaida Olivas MD [address] [facility] [address] [place] [address] [facility]/19[facility] [address] [facility] [address] [place], [place] [phone] Social History Date Tobacco Use Types Packs/Day [...] something else? Please call Aaron back at [phone] Call taken by: Daphne Roa on April [...] CDT Influenza 08/30/2017 08/30/2019 08/30/2019 1:09 PM INNERSOLE FITTER Influenza - Rule Out 08/30/2019 08/31/2019 09/17/2019 8:17 AM INNERSOLE FITTER RSV 08/31/2019 documented as of this encounter
--- OUTSIDE RECORDS SUMMARY | 2020-03-12 09:18 | XMS REPORT | Encounter Summary ---
Author Author [facility] Organization [facility] Address Unknown Phone Unavailable Care Team Providers Care Print Shop Manager Name Role Phone Ebony Sharp MD PCP Encounter Details Care Team Description Date Type Department Adelaida Olivas MD [address] [facility] [address] [place], [place] [id number] 04/15/2017 Hist-Transcript Aide Orthopaedi c ion Encounter Specialists [address] [facility] [address] [place], [place] [address] Social History Date Tobacco Use Types Packs/Day [...] her surgical incis ions. Impression NONUNION FRACTURE ([id number]) Status post tibiotalar arthrodesis, doing reasonably well. [...] 1 po q daily VITAMIN D (ERGOCALCIFEROL) 91113 UNIT CAPS (ERGOCALCIFEROL) 1 po q weekly [...] Mercado on 04/15/2017 Method used: [facility] [address] [place] [address] Ph: [phone] Fax: [phone] RxID: [id number] OXYCONTIN 10 MG T12A (OXYCODONE HCL) 1 tablet PO BID PRN #30 x 0 Entered by: Kayley Mercado Authorized by: Adelaida Olivas MD Signed by: Kayley Mercado on 04/15/2017 Method used: Print then Give to Patient RxID: [id number] OXYCODONE HCL 10 MG TABS (OXYCODONE HCL) one PO Q 6 hours prn pain #60 x 0 Entered by: Kayley Mercado Authorized by: Adelaida Olivas MD Signed by: Kayley Mercado on 04/15/2017 Method used: Print then Give to Patient RxID: [id number] OXYCONTIN 10 MG T12A (OXYCODONE HCL) 1 tablet PO BID PRN #0 x 0 Entered by: Kayley Mercado Authorized by: Adelaida Olivas MD Signed by: Kayley Mercado on 04/15/2017 Method used: Print then Give to Patient RxID: [id number] OXYCODONE HCL 10 MG TABS (OXYCODONE HCL) one PO Q 6 hours prn pain #40 Tablet U n x 0 Entered by: Kayley Mercado Authorized by: Adelaida Olivas MD Signed by: Kayley Mercado on 04/15/2017 Method used: Print then Give to Patient RxID: [id number] Vital Signs Ht: 62 in. Wt: 236 [...] CDT Influenza 08/30/2017 08/30/2019 08/30/2019 1:09 PM REPAIR TECHNICIAN Influenza - Rule Out 08/30/2019 08/31/2019 09/17/2019 8:17 AM REPAIR TECHNICIAN RSV 08/31/2019 documented as of this encounter
--- OUTSIDE RECORDS SUMMARY | 2020-03-12 09:18 | XMS REPORT | Encounter Summary ---
Author Author [facility] Organization [facility] Address Unknown Phone Unavailable Care Team Providers Care Before School Babysitter Name Role Phone Ebony Sharp MD PCP Encounter Details Care Team Description Date Type Department Adelaida Olivas MD [address] [facility] [address] [place], [place] [address] 04/29/2017 Hist-Transcript Aide Orthopaedi c ion Encounter Specialists [address] [facility] [address] [place], [place] [address] Social History Date Tobacco Use Types Packs/Day [...] 3RD TOE NONDISPLACED FRACTURE OF DISTAL PHALANX ([id number]) LEFT ANKLE STRESS FRACTURE ([id number]) Status post tibiotalar fusion with interval signs [...] 1 po q daily VITAMIN D (ERGOCALCIFEROL) 66771 UNIT CAPS (ERGOCALCIFEROL) 1 po q weekly [...] used: Print then Give to Patient RxID: [id number] MS CONTIN 15 MG CR-TABS (MORPHINE SULFATE) Take 1 tablet every 12 hours as neede d for pain #40 Undefined x 0 Entered by: Sharona Scott Authorized by: Adelaida Olivas MD Signed by: Sharona Scott on 04/29/2017 Method used: Print then Give to Patient RxID: [id number] Review of Systems General: Complains of sweats, [...] CDT Influenza 08/30/2017 08/30/2019 08/30/2019 1:09 PM SENIOR TEST ENGINEER Influenza - Rule Out 08/30/2019 08/31/2019 09/17/2019 8:17 AM SENIOR TEST ENGINEER RSV 08/31/2019 documented as of this encounter
--- OUTSIDE RECORDS SUMMARY | 2020-03-12 09:18 | XMS REPORT | Encounter Summary ---
Author Author Organization Address Unknown Phone Unavailable Care Team Providers Care Cane Feeder Name Role Phone Ebony Sharp MD PCP Encounter Details Care Team Description Date Type Department Adelaida Olivas MD [address] [facility] [address] [place] [address] 04/27/2017 [facility] [address] [facility] [address] [place] [address] Social History Date Tobacco Use [...] above rosalind l. Please call back at [phone]. Additional Follow-up by: Trina Rhodes on April 28, 2017 1:22 PM Additional Follow-up for Phone Call Additional Follow-up Details: I left a message for a return phone call. Additional Follow-up by: Kari Young on April 28, 2017 3:34 PM Additional Follow-up for Phone Call Additional Follow-up Details: Patient is returning call, please call back at . Additional Follow-up by: Steve Sandhu on April [...] CDT Influenza 08/30/2017 08/30/2019 08/30/2019 1:09 PM DIRECT SUPPORT SPECIALIST Influenza - Rule Out 08/30/2019 08/31/2019 09/17/2019 8:17 AM DIRECT SUPPORT SPECIALIST RSV 08/31/2019 documented as of this encounter
--- OUTSIDE RECORDS SUMMARY | 2020-03-12 09:18 | XMS REPORT | Encounter Summary ---
Author Author [facility] Organization [facility] Address Unknown Phone Unavailable Care Team Providers Care Heel Seat Pounder Name Role Phone Ebony Sharp MD PCP Encounter Details Care Team Description Date Type Department Ebony Sharp MD [address] [facility] [address] [place], [place] [id number] 05/11/2017 Documentation [facility] Primar y [facility] [address] [facility] [address] [place] [address] Social History Date Tobacco [...]
--- OUTSIDE RECORDS SUMMARY | 2020-03-12 09:18 | XMS REPORT | Encounter Summary ---
Author Author [facility] Organization [facility] Address Unknown Phone Unavailable Care Team Providers Care Control System Computer Scientist Name Role Phone Ebony Sharp MD PCP Encounter Details Care Team Description Date Type Department Adelaida Olivas MD [address] [facility] [address] [place] [address] [phone] 04/29/2017 Hist-Other [facility] [address] [place] [address] Social History Date Tobacco Use Types Packs/Day [...]
--- OUTSIDE RECORDS SUMMARY | 2020-03-12 09:18 | XMS REPORT | Encounter Summary ---
Author Author [facility] Organization [facility] Address Unknown Phone Unavailable Care Team Providers Care De Alcholizer Name Role Phone Ebony Sharp MD PCP Reason for Visit * Reason Comments Follow-up Vianney left ankle post op/ ok per Trell/ 04/12/2017 cmlTVX: Appt. Reminder (04/13/2017 06:16 PM) Phone Call - Resp onded "Yes" (Y=Answered - Yes) Encounter Details Care Team Description Date Type Department Adelaida Olivas MD [address] [facility] [address] [place] [address] [phone] 04/15/2017 Hist-Appointmen Aide Orthopaedi c t Specialists [address] [facility] [address] [place] [address] Social History Date Tobacco Use Types Packs/Day [...]
--- OUTSIDE RECORDS SUMMARY | 2020-03-12 09:18 | XMS REPORT | Encounter Summary ---
Author Author [facility] Organization [facility] Address Unknown Phone Unavailable Care Team Providers Care Mold Yard Worker Name Role Phone Ebony Sharp MD PCP Encounter Details Care Team Description Date Type Department Ebony Sharp MD [address] [facility] [address] [place], [place] [id number] 04/20/2017 Documentation [facility] Primar y [facility] [address] [facility] [address] [place] [address] Social History Date Tobacco Use [...]
--- OUTSIDE RECORDS SUMMARY | 2020-03-12 09:18 | XMS REPORT | Encounter Summary ---
Author Author [facility] Organization [facility] Address Unknown Phone Unavailable Care Team Providers Care President [place] Name Role Phone Ebony Sharp MD PCP Reason for Visit * Reason Comments Follow-up Margot lt 04-29-17 HKW TVX: Appt. Reminder (05/11/2017 06:19 PM) Phone Call - Message Delivered (X=Answering Ever hill) Encounter Details Care Team Description Date Type Department Adelaida Olivas MD [address] [facility] [address] [place] [address] [phone] 05/13/2017 Hist-Appointmen Aide Steeleedi hanny moore [facility]ists [address] [facility] [address] [place] [address] Social History Date Tobacco Use Types Packs/Day [...]
--- OUTSIDE RECORDS SUMMARY | 2020-03-12 09:18 | XMS REPORT | Encounter Summary ---
Author Author [facility] Organization [facility] Address Unknown Phone Unavailable Care Team Providers Care Colon And Rectal Surgeon Name Role Phone Ebony Sharp MD PCP Encounter Details Care Team Description Date Type Department Francoise Hagan RN 04/13/2017 Telephone [facility] Primar y [facility] [address] [facility] [address] [place], [place] [address] Social History Date Tobacco Use Types Packs/Day [...]
--- OUTSIDE RECORDS SUMMARY | 2020-03-12 09:18 | XMS REPORT | Encounter Summary ---
Author Author [facility] Organization [facility] Address Unknown Phone Unavailable Care Team Providers Care Publishing Director Name Role Phone Ebony Sharp MD [...] Type Department Jason Guillory, DO [address] [facility] [place] [address] Chronic bronchitis, unspecified chronic bronchitis type (HCC) (Primary Dx); Dyspnea, unspecified type 05/10/2017 Emergency [facility] [address] [facility] [place] [address] Social History Date Tobacco Use Types [...] through Care Everywhere.* BRONCHITIS, ANTIOBIOTIC TREATMENT (ADULT) ([facility]) documented in this encounter Medications at Time [...] 12:20 PM CDT Pt called [facility] to [facility], RN to bedside and pt reports [...] ED PROCEDURE BASIC - ECG INTERPRET 05/10/2017 [facility] History Chief Complaint Patient presents with [...] as she is postop from surgery by [facility]. She is currently using Lovenox for [...] ARTHRODESIS; Surgeon: Adelaida Olivas MD; Location: [facility] Main OR; Service: [...] ED Physician in the absence of a battery filler: yes Previous ECG: Previous ECG: Compared to [...] opacity likely related to atelectasis READING SITE: [facility] CT Angio Chest (Results Pending) Ebony Sharp MD [address] [facility] [address] [facility] [address] Schedule an appointment as soon as [...] disease. 2. Bilateral subsegmental atelectasis. READING SITE: [facility] XR Chest 2 views (PA and lateral) Final Result No focal consolidation. Left basilar atelectatic opacity likely related to atelectasis READING SITE: [facility] discussed the CT results with the patient [...] 1. No CT evidence of thromboembolic disease. MCKESSO N 2. Bilateral subsegmental atelectasis. READING SITE: [facility] Narrative Performed At Patient: ISIAH BENÍTEZ Sex#: F # 1950 Jose#: [id number] Location: [facility] ED - Procedure Requested: [id number] CT ANGIO CHEST Reason for Exam: soa [...] were obtained through the chest using t he pulmonary embolus protocol. Bilateral oblique thin section [...] ISIAH BENÍTEZ Sex#: Paulina # 1950 Jose#: [id number] Location: [facility] SED-27 Procedure Requested: [id number] CT ANGIO CHEST Reason for Exam: soa [...] ase. 2. Bilateral subsegmental atelectasis. READING SITE: [facility] Performing Organization Address City/State/Zipcode Ph one Number LEVI * ED Procedure Basic - ECG Interpret (05/10/2017 2:50 PM CDT) Narrative Performed At Jason Guillory DO 05/10/2017 2:50 P M ECG Interpret Date/Time: 05/10/2017 2:47 PM Performed by: JASON GUILLORY Authorized by: JASON GUILLORY ECG reviewed by ED Physician in the abs ence of a battery filler: yes Previous ECG: Previous ECG: Compared to [...] SIMS likely related to atelectasis READING SITE: [facility] Narrative Performed At Patient: ISIAH BENÍTEZ Sex#: F # 1950 Jose#: [id number] Location: [facility] ED SED-27 Procedure Requested: [id number] XR CHEST 2 VIEWS (PA AND LATERAL) [...] ISIAH BENÍTEZ Sex#: Paulina # 1950 Jose#: [id number] Location: [facility] ED [facility] Procedure Requested: [id number] XR CHEST 2 VIEWS (PA AND LATERAL) [...] opacity likely related to atelectasis READING SITE: [facility] Performing Organization Address [facility] [address]/[facility] one Number LEVI * Troponin (05/10/2017 11:50 AM CDT) Pathologist [facility] Troponin <0.01 0.00 - 0.03 ng/mL [facility] Comment: ALBERT AGUSTIN Troponin Value [facility] Interpretation 0.00 - 0.03 Healthy 0.04 - 0.12 Increased Cardiac Risk >0.12 Myocardial Infarction Troponin may not become elevated until 6 to 8 hours after onset of symptoms. Specimen Blood Performing Organization Address [facility] [address]/[facility] one Number [facility] [address] [facility] [place] [address] [facility] JACKSONCadence SWANSON [address] [place] [address], [facility] * D Dimer (05/10/2017 11:50 AM CDT) Pathologist [facility] D Dimer 1.85 (H)Comment: Cutoff value 0.00 - 0.40 ug/m L [facility] for exclusion of venous FEU ALBERT AGUSTINS thromboembolism is <0.40 ug/mL [facility] FEU. Specimen Blood Performing Organization Address City/State/[facility] Ph one Number [facility] [place] [address] [facility] [address] [facility] [place], [place] [id number] [facility] [place] [address] [place] [facility] [place] [address], [facility] * Comprehensive Metabolic Panel (05/10/2017 11:50 AM CDT) [facility] Signature Sodium 140 133 - 147 MEQ/L [facility] Potassium 4.0 3.5 - 5.3 MEQ/L [facility] Chloride 102 96 - 112 MEQ/L [facility] Carbon Dioxide 29 20 - 32 MEQ/L [facility] Anion Gap 9 5 - 17 [facility] Calcium 8.9 8.4 - 10.5 mg/dL [facility] Glucose 158 (H) 70 - 100 mg/dL [facility] Protein Total 7.3 6.0 - 8.2 g/dL [facility] Serum AL[facility]ERT [facility] Albumin 4.0 3.5 - 5.0 g/dL [facility] Alkaline 99 42 - 140 IU/L [facility] Phosphatase [facility] Alanine 28 13 - 69 IU/L [facility] Aminotransferas [facility] e [facility] Aspartate 22 15 - 46 IU/L [facility] Aminotransferas [facility] e [facility] Bilirubin Total 0.3 0.2 - 1.3 mg/dL [facility] Blood Urea 15 7 - 26 mg/dL [facility] Nitrogen [facility] Creatinine 0.8 0.4 - 1.1 mg/dL [facility] eGFR Female AA 87 [...] [facility] AGUST[facility] [address] [employer] [place] [facility] [place] [place] [id number] [facility] AGUSTINS [address] [place] [employer] [address], [facility] * CBC and Diff (manual diff if necessary) (05/10/2017 11:50 AM CDT) [facility] WBC 10.17 4.00 - 11.00 TH/uL [facility] Eugenia [facility] RBC 3.51 (L) 4.00 - 5.00 MIL/uL [facility] Hemoglobin 11.5 (L) 12.0 - 15.0 g/dL KATEEugenia ZAZUETAS [facility] Hematocrit 36 36 - 45 % [facility] MCV 104 (H) 80 - 99 fL [facility] MCH 33 27 - 34 pg [facility] MCHC 32 32 - 36 % [facility] RDW 14.0 9.0 - 14.5 % [facility] Platelet Count 152 140 - 400 TH/uL [facility] MPV 9.9 9.4 - 12.3 fL [facility] ALBERT ZAZUETAZipsceneS [facility] % Neutrophils 67 45 - 78 % [facility] %Lymphocytes 22 15 - 47 % [facility] %Monocytes 8 0 - 12 % [facility] %Eosinophils 3 0 - 7 % MEHUL SWANSON [facility] %Basophils 0 0 - 2 % MEHUL SWANSON [facility] # Granulocytes 6.85 (H) 1.7 - 6.8 TH/uL [facility] # Lymphocytes 2.19 1.0 - 3.3 TH/uL [facility] # Monocytes 0.84 0.2 - 0.9 TH/uL MEHUL Z[facility]UETAEugenia [facility] # Eosinophils 0.26 0.0 - 0.4 TH/uL [facility] # Basophils 0.03 0.0 - 0.1 TH/uL [facility] PR[facility] Specimen Blood Performing Organization Address City/State/[facility] Cent[facility]ode Ph one Number [facility]AN[facility] [address] [place] [facility] [place] [address] [facility] [address] [place] [facility] [place] [address], [facility] * Electrocardiogram (ECG) (05/10/2017 11:18 AM CDT) Specimen Narrative Performed At [facility] ED Test Date: 2017-05-10 Pat Name: ISIAH BENÍTEZ Department: ERS Room: SED Gender: Female Fabrication Engineer: [id number] : 1950 Requested By: JASON GUILLORY Order Number: [id number] Jackie MD: Measurements Intervals [place] Rate: 116 P: 57 NV: 144 QRS: 59 QRSD: 100 T: 44 QT: 340 QTc: 473 Interpretive Statements SINUS TACHYCARDIA Procedure Note Interface, External Ris In - 05/10/2017 11:23 AM CDT [facility] ED Test Date: 2017-05-10 Pat Name: ISIAH BENÍTEZ Department: ERS Room: SED Gender: Female Fabrication Engineer: [id number] : 1950 Requested By: JASON GUILLORY Order Number: [id number] Jackie MD: Measurements Intervals [place] Rate: 116 P: 57 NV: 144 QRS: 59 QRSD: 100 T: 44 QT: 340 QTc: 473 Interpretive Statements SINUS TACHYCARDIA Performing Organization Address City/State/Zipcode Ph one Number [...]
--- OUTSIDE RECORDS SUMMARY | 2020-03-12 09:19 | XMS REPORT | Encounter Summary ---
Author Author [facility] Organization [facility] Address Unknown Phone Unavailable Care Team Providers Care Fishing Vessel Deckhand Name Role Phone Ebony Sharp MD PCP Reason for Visit * Reason Comments Follow-up surgery clearance Encounter Details Care Team Description Date Type Department Ebony Sharp MD [address] [facility] [address] [place] [address] SASHA (obstructive sleep apnea) (Primary D x); Essential hypertension; Hyperlipidemia, unspecified hyperlipidemia type; MATA (generalized anxiety disorder); Chronic obstructive pulmonary disease, unspecified COPD type ([facility]); IDDM (insulin dependent diabetes mellitus) ([facility]) 04/08/2017 Office Visit [facility] [address] [facility] [address] [place], [place] [id number] Social History Date Tobacco Use Types Packs/Day [...] Licensed Practical Nurse Sha Gomez MA as Alteration Hand Aniya Rosa MA as Alteration Hand Lisa Moreno LPN as Licensed Practical Nurse Sheryl Barfield MA as Alteration Hand The patients demographics, including age, gender, race, [...] to have her glucose watched while in [facility]. Her SASHA and COPD are currently stable. She needs to be STRONGLY EN COURAGED to continue to watch her blood sugars and have her diabetes under contr ol. She needs to be seen q 3-4 months because of her multiple chronic concerns. Ebony Sharp MD documented in this encounter Plan of Treatment Not on filedocumented as of this encounter Results * Microalbumin Random (04/08/2017 12:49 PM CDT) Creatinine 439.2 mg/dL [facility] Urine Random [facility] Microalbumin 10.40 mg/dL [facility] mg/dl [facility] Microalbumin/Cr 23.68 0.00 - 30.00 ug/mg [facility] eatinine Ratio [facility] Specimen Performing Organization Address [facility] Ph one Number [facility] [address] [place], [place] [id number] LABORATORIES * Thyroid Stimulating Hormone (04/08/2017 12:49 PM CDT) Thyroid 0.35 (L) 0.47 - 4.68 uIU/mL [facility] Stimulating [facility] Hormone [facility] Specimen Blood Performing Organization Address [facility] Ph one Number [facility] [address] [place] [address] LABORATORIES * Lipid Panel (04/08/2017 12:49 PM CDT) Cholesterol 193 100 - 200 mg/dL [facility] HDL Cholesterol 54 40 - 110 mg/dL [facility] Non-HDL 139 (H) 0 - 130 mg/dL [facility] Cholesterol [facility] Triglycerides 182 (H) 0 - 150 mg/dL [facility] LDL Cholesterol 103 (H) 0 - 99 mg/dL [facility] Cholesterol/HDL 3.6 0.0 - 4.5 [facility] Ratio [facility] Specimen Blood Performing Organization Address [facility]/Counts Include [address] [facility] one Number [facility] [address] [place] [address] LABORATORIES * Hemoglobin A1C (04/08/2017 12:49 PM CDT) Hemoglobin A1C 8.1 (H) 4.0 - 5.6 % [facility] Comment: [facility] Non-diabetic 4.0 - LABORATORIES 5.6 % Prediabetes 5.7 - 6.4 % Diabetes >= 6.5 % Specimen Blood Performing Organization Address City/[facility]/Counts Include [address] [facility] one Number [facility] [address] [place] [address] LABORATORIES documented in this encounter Visit Diagnoses Diagnosis SASHA (obstructive sleep apnea) Obstructive sleep apnea (adult) ([facility]) Essential hypertension Unspecified essential hypertension Hyperlipidemia, unspecified hyperlipide prasanna type MATA (generalized anxiety disorder) Generalized anxiety disorder Chronic obstructive pulmonary disease, unspecified COPD type ([facility]) IDDM (insulin dependent diabetes [facility]) documented in this encounter
--- OUTSIDE RECORDS SUMMARY | 2020-03-12 09:19 | XMS REPORT | Encounter Summary ---
Author Author [facility] Organization [facility] Address Unknown Phone Unavailable Care Team Providers Care Attic Fans Mechanic Name Role Phone Ebony Sharp MD PCP Encounter Details Care Team Description Date Type Department Ebony Sharp MD [address] [facility] [address] [place], [place] [phone] Essential hypertension; Hyperlipidemia, unspecified hyperlipidemia type; IDDM (insulin dependent diabetes mellitus) (HCC) 04/08/2017 Lab [facility] Primar y Care - [facility] [address] [facility] [address] [facility] [place], [place] [id number] Social History Date Tobacco Use Types Packs/Day [...] (04/08/2017 12:49 PM CDT) Creatinine 439.2 mg/dL [facility] Urine Random [facility] Microalbumin 10.40 mg/dL [facility] mg/dl [facility] Microalbumin/Cr 23.68 0.00 - 30.00 ug/mg [facility] eatinine Ratio [facility] Specimen Performing Organization Address [facility] [address] LABORATORIES * Thyroid Stimulating Hormone (04/08/2017 12:49 PM CDT) Thyroid 0.35 (L) 0.47 - 4.68 uIU/mL [facility] S Stimulating [facility] Hormone LABORATORIES Specimen Blood Performing Organization Address [facility] one Number [address] [address] LABORATORIES * Lipid Panel (04/08/2017 12:49 PM CDT) Cholesterol 193 100 - 200 mg/dL [facility] HDL Cholesterol 54 40 - 110 mg/dL [facility] Non-HDL 139 (H) 0 - 130 mg/dL [facility] Cholesterol [facility] Triglycerides 182 (H) 0 - 150 mg/dL [facility]IES LDL Cholesterol 103 (H) 0 - 99 mg/dL [facility] LAB[facility]IES Cholesterol/HDL 3.6 0.0 - 4.5 [facility] Ratio [facility] Specimen Blood Performing Organization Address [facility] one Number [address] [address] LABORATORIES * Hemoglobin A1C (04/08/2017 12:49 PM CDT) Hemoglobin A1C 8.1 (H) 4.0 - 5.6 % [facility] Comment: [facility] Non-diabetic 4.0 - LABORATORIES 5.6 % Prediabetes 5.7 - 6.4 % Diabetes >= 6.5 % Specimen Blood Performing Organization Address City/State/Zipcode Ph one Number [address] [address] LABORATORIES documented in this encounter Visit Diagnoses Diagnosis Essential hypertension Unspecified essential hypertension Hyperlipidemia, unspecified hyperlipide prasanna type IDDM (insulin dependent diabetes [facility]) documented in this encounter
--- OUTSIDE RECORDS SUMMARY | 2020-03-12 09:19 | XMS REPORT | Encounter Summary ---
Author Author [facility] Organization [facility] Address Unknown Phone Unavailable Care Team Providers Care Screen Printing Supervisor Name Role Phone Ebony Sharp MD PCP Reason for Visit * Auth/Cert Referred By Contact Referred To Contact Status Reason Specialty Diagnoses / Procedures Diagnoses M19.072 P rocedures [place] ARTHRODESIS,ANKLE, OPEN LEFT ANKLE REMOVAL OF HARDWARE REVISION ARTHRODESIS LEFT ANKLE Encounter Details Care Team Description Date Type Department Adelaida Olivas MD [address] [facility] [address] [place] [address] [phone] Type 2 diabetes mellitus with hyperglyce prasanna, 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); Benign essential HTN 04/09/2017 [facility] 04/12/2017 [address] 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 naloxone 4 mg/actuation [place] Dose: 1 spray Use 1 spray in [...] Commonly known as: ZOCOR Adelaida Olivas MD [id number] documented in this encounter Discharge Instructions * Appointments* Fiorella Diana RN - 04/12/2017 10:52 AM CDT Follow up appointment is scheduled for March at 4:[address] Olivas [facility] [phone] * Pre-Procedure Instructions* Renee Sanderson RN - [...] be sent through Care Everywhere.* ENOXAPARIN INJECTION ([place]) * OXYCODONE HYDROCHLORIDE ORAL TABLET ([place]) * CONSTIPATION (ADULT) ([place]) * DIET: HIGH FIBER, DISCHARGE INSTRUCTIONS ([place]) documented in this encounter Medications at Time [...] Cardoza APRN - 04/12/2017 9:03 AM CDT [facility] Hospitalist - Progress Note Patient Name: sIiah Benítez Account No: [id number] Date of : 1950 Date of Admission: [...] results (as indicated), current inpatient medications, construction safety consultant notes and s upport staff notes [...] details regarding this patients treatment plan. Room: [address] [place] [address] Diet: Diet-Consistent Carbohydrate (75 gm) Code Status: [...] p rochlorperazine OR prochlorperazine Honey Abdullahi APRN [facility] Hospitalist Please page through physician paging. > 25 minutes spent on chart review, exam, orders and patient education. >50% of this time was spent face to face with the patient. . * Maryam Cornell RN APRN - 04/12/2017 8:58 AM CDT [facility] Orthopedic Daily Progress Note Patient Name: [...] to display Maryam Cornell APRN- Orthopedics Pager [phone] * Heriberto Acosta MD - 04/11/2017 8:59 AM CDT [facility] Hospitalist - Progress Note Patient Name: Isiah Do Board Account No: [id number] Date of : 1950 Date of Admission: [...] results (as indicated), current inpatient medications and manager client support notes with pertainent findings noted within the assessment/plan. Assessment/Plan Ms. Isiah Benítez is a 66 y.o. female who was admitted on 04/09/2017 with ankle p ain. Problems addressed with today's visit include: Type 2 diabetes mellitus with hyperglycemia, with long-term current use of insul in ([facility]) Mildly hyperglycemic, likely due to stress/pain- will continue current basal/marita wilbert insulin dosing and monitor. SASHA on CPAP She is trying to be more compliant with CPAP use Benign essential HTN Continue amlodipine COPD (chronic obstructive pulmonary disease) ([facility]) Stable -continue breo and nebs -quit smoking 7 years ago Closed left ankle fracture Management by primary service Chronic pain Continue gabapentin and elavil See my orders for additional details regarding this patients treatment plan. Room: [address] [place] [address] Diet: Diet-Consistent Carbohydrate (75 gm) Code Status: [...] p rochlorperazine OR prochlorperazine Heriberto Acosta MD [facility] Please page through physician paging. . * Walker Funez MD - 04/11/2017 8:50 AM CDT [facility] Orthopaedic Progress Note Subjective: Patient states [...] Acosta MD - 04/10/2017 12:31 PM CDT [facility] Hospitalist - Progress Note Patient Name: Isiah Do Board Account No: [id number] Date of : 1950 Date of Admission: [...] results (as indicated), current inpatient medications and manager client support notes with pertainent findings noted within the assessment/plan. Assessment/Plan Ms. Isiah Benítez is a 66 y.o. female who was admitted on 04/09/2017 with ankle p ain. Problems addressed with today's visit include: Type 2 diabetes mellitus with hyperglycemia, with long-term current use of insul in ([facility]) Remains hyperglycemic post-op- will increase basal insulin dose and correction level and monitor. SASHA on CPAP She is trying to be more compliant with CPAP use Benign essential HTN Continue amlodipine COPD (chronic obstructive pulmonary disease) ([facility]) Stable -continue breo and nebs -quit smoking 7 years ago Closed left ankle fracture Management by primary service Chronic pain Continue gabapentin and elavil See my orders for additional details regarding this patients treatment plan. Room: [facility]/[address] [place] [address] Diet: Diet-Consistent Carbohydrate (75 gm) Code Status: [...] OR prochlorperazine OR prochlorperazine Heriberto Acosta MD [facility]ist Please page through physician paging. . * Walker Funez MD - 04/10/2017 7:22 AM CDT [facility] Orthopaedic Progress Note Subjective: Patient states [...] encounter H&P Notes * Maryam Cornell RN [facility] - 04/08/2017 4:00 [place] [address] History and Physical PATIENT NAME: Isiah Benítez DATE: 04/08/2017 CPI: [id number] AGE: 66 y.o. : 1950 HISTORY OF [...] mutually agreed upon goals. 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 Social History: She reports [...] Take 1 tablet (100 mg total) by md ut 2 (two) times a day. morphine [...] results (as indicated), current inpatient medications and manager client support notes with pertainent findings noted within the assessment/plan. Assessment/PlanMs. Isiah Benítez is a 66 y.o. female who was admitted on 04/09/20 17 with complaint of left ankle surgery. IDDM (insulin dependent diabetes mellitus) ([facility]) Continue lantus 15 u qhs -not on [...] a negative biological and were sterilized in [facility] Department. documented in this encounter Miscellaneous Notes * Care Progression Final DC Note - Fiorella Diana RN - 04/12/2017 2:56 PM CDT Final Discharge Note Discharge goal and plan is mutually agreed upon by patient and Care Coordinaton. Patient will discharge to: [facility] Transportation: daughter Discharge Time: after 5:00pm Special [...] General Discharge Note Called patients preferred pharmacy [facility] [phone] to inquire cost of soraya xaparin 40mg [id number] #30. Cost to patient is $3.30. Prescription called in and ready for pickup at discharge. Will follow for any other needs at discharge. Eugenia Diana DISTRIBUTION ENGINEERING TECHNOLOGIST Telephone Service Adviser [phone] * Discharge Planning - Fiorella Diana RN - 04/12/2017 9:38 AM CDT Discharge Planning Interventions General Discharge Note Reviewed discharge orders. HH is not ordered for discharge. Spoke with Maryam elmore RN [facility] who confirms that HH is not necessary [...] RW at home Prior Function Level of [place] Independent with ADLs;Independent with ambulation;Independ ent with [...] RW at home Prior Function Level of [place] Independent with ADLs;Independent with ambulation;Independ ent with [...] mutually agreed upon goals. Teri Rubio LCSW, Rocket Engine Mechanic [phone] Patient's Living Arrangement: House Support System: Children. [...] mutually agreed upon goals. Teri Rubio LCSW, Rocket Engine Mechanic [phone] Referral to see patient was placed by [...] MD and recei ves their medications from [facility] [address] [place], [place] [address] [address] AT [place] [address] [address] [facility] [address] [address] [facility] [address] [place], [place] - [address] [facility] & [address] [facility] [phone] * Plan of Care - Terrie Gallagher [...] AM CDT PRIMARY SURGEON: Dr. Adelaida Olivas SWABBER: Geraldine Neves CST ESTIMATED BLOOD LOSS: Minimal. No intraoperative complications. PREOPERATIVE DIAGNOSIS: Failed tibiotalar arthrodesis. POSTOPERATIVE DIAGNOSIS: Failed tibiotalar arthrodesis. OPERATIONS PERFORMED: Removal of hardware through 3 separate incisions, [place] s tendon lengthening, tibiotalar fusion, fibular osteotomy with bone stimulator insertion and open ankle arthrodesis. COMPLICATIONS: There were no intraoperative complications. OPERATIVE IMPLANTS: Include 8.0 mm cannulated screw from [employer] with the [employer] lateral fusion plate, no intraoperative complications. [...] guidewire for 8.0 mm cannulated screw from [employer] r was subsequently placed onto the anterolateral portion of the patient's distal fibula into the talus. This yielded excellent compression. Clinical alignment was checked, a [employer] lateral fusion plate was subsequently applied usi [...] was subsequently roldan beth into a bulky [place] dressing and then was taken to the [...] results within the time period is included. [facility] Glucose POC 180 (H) 70 - 100 mg/dL [facility] Specimen Performing Organization Address City/State/Zipcode Ph one Number [facility] [address] [place] [facility] [place] [address] [facility] [address] [place] [facility] [place] [address], [facility] * Basic Metabolic Panel (04/10/2017 10:18 AM CDT) Only the most recent of 2 results within the time period is included. Sodium 139 133 - 147 MEQ/L [facility] Potassium 4.2 3.5 - 5.3 MEQ/L [facility] Chloride 102 96 - 112 MEQ/L [facility] Carbon Dioxide 25 20 - 32 MEQ/L [facility] Anion Gap 11 5 - 17 [facility] Calcium 8.8 8.4 - 10.5 mg/dL [facility] Glucose 209 (H) 70 - 100 mg/dL [facility] Blood Urea 18 7 - 26 mg/dL [facility] N[facility] Creatinine 1.0 0.4 - 1.1 mg/dL [facility] eGFR Female AA 67 60 - 200 [facility] Comment: [facility] Chronic Kidney Disease less [facility] than 60 mL/min/1.73 sq.m Kidney failure less than 15 mL/min/1.73 sq.m eGFR Female 56 (L) 60 - 200 [place] [facility] Non-AA Comment: [facility] Chronic Kidney Disease less [facility] than 60 mL/min/1.73 sq.m Kidney failure less than 15 mL/min/1.73 sq.m Specimen Blood Narrative Performed At This order is a replacement of the rejected order wit h accession number [facility] [id number]. [facility] Performing Organization Address City/State/Zipcode Ph one Number [facility] [address] [facility], [place] [id number] [facility] [address] [place] [address], [facility] * Complete Blood Count (04/10/2017 8:42 AM CDT) WBC 18.60 (H) 4.00 - 11.00 TH/uL [facility] RBC 4.04 4.00 - 5.00 MIL/uL [facility] Hemoglobin 13.4 12.0 - 15.0 g/dL [facility] Hematocrit 40 36 - 45 % [facility] MCV 99 80 - 99 fL [facility] MCH 33 27 - 34 pg [facility] MCHC 34 32 - 36 % [facility] RDW 13.5 9.0 - 14.5 % [facility] Platelet Count 217 140 - 400 TH/uL [facility] MPV 10.5 9.4 - 12.3 fL [facility] Specimen Blood Performing Organization Address City/State/Zipcode Ph one Number [facility] [address] [facility] [place] [address] [facility] [address] [facility] [address], [facility] * XR Ankle min 3 views [...] deta ils regarding real-time findings. READING SITE: [facility] . Narrative Performed At Patient: ISIAH BENÍTEZ YAIMAJEFFREY Sex#: F # [id number] Jose#: [id number] Location: [facility] MAIN OR NONE Procedure Requested: [id number] XR ANKLE MIN 3 VIEWS LEFT Reason for Exam: ankle pain Exam Ordered: 04/09/2017 12 54 Exam Date/Time: 04/09/2017 151 8 Begin exam date/time: 04/09/2017 125 4 XR ANKLE MIN 3 VIEWS LEFT INDICATION: ankle pain COMPARISON: CT from 02/18/2017. Procedure Note Interface, Rad Results In - 04/09/2017 4:05 PM CDT Patient: ISIAH BENÍTEZ Sex#: F # 1950 Jose#: [id number] Location: [facility] MAIN OR NONE Procedure Requested: [id number] XR ANKLE MIN 3 VIEWS LEFT Reason [...] full details regarding real-time findings. READING SITE: [facility]. Performing Organization Address City/State/Zipcode Ph one Edgar [...] needed, low blood sugar, Starting Wed04/09/17 at 2049, Give if patient NPO and IV access already available. If no IV access give Glucagon SQ or IM in arm and turn patient on side. Recheck BG in 15 minutes. Repeat until glucose greater than 80., dextrose 50% (D50W) 50 % injection 25-5 0 mL 25-50 mL, Intravenous, As needed, low blood sugar, Starting Wed04/09/17 at 2049, Give if patient NPO and IV access already available. If no IV access giv e Glucagon SQ or IM in arm and turn patient on side. Recheck BG in 15 minutes. Repeat until glucose greater than 80., dextrose 50% (D50W) syringe 25-50 mL 25-50 mL, Intravenous, As needed, low blood sugar, Starting Wed04/09/17 at 2049, Give if patient NPO and IV access [...]
--- OUTSIDE RECORDS SUMMARY | 2020-03-12 09:19 | XMS REPORT | Encounter Summary ---
Author Author [facility] Organization [facility] Address Unknown Phone Unavailable Care Team Providers Care Heel Attacher Name Role Phone Ebony Sharp MD PCP Reason for Visit * Auth/Cert Referred By Contact Referred To Contact Status Reason Specialty Diagnoses / Procedures Diagnoses M19.072 P rocedures [place] ARTHRODESIS,ANKLE, OPEN LEFT ANKLE REMOVAL OF HARDWARE REVISION ARTHRODESIS LEFT ANKLE Encounter Details Care Team Description Date Type Department Adelaida Olivas MD [address] [facility] [address] [place] [address] [phone] LEFT ANKLE REMOVAL OF HARDWARE WITH REVI EJ LEFT ANKLE ARTHRODESIS 04/09/2017 Surgery [facility] [address] [place] [address] Social History Date Tobacco Use Types Packs/Day [...] known as: LOPRESSOR 16. naloxone 4 mg/actuation [place] Dose: 1 spray Use 1 spray in [...] Commonly known as: ZOCOR Adelaida Olivas MD [id number] documented in this encounter Discharge Instructions * Appointments* Fiorella Diana RN - 04/12/2017 10:52 AM CDT Follow up appointment is scheduled for March at 4:[address] [facility]ivas [facility] [phone] * Pre-Procedure Instructions* Renee Sanderson RN - [...] be sent through Care Everywhere.* ENOXAPARIN INJECTION (FRENCH) * OXYCODONE HYDROCHLORIDE ORAL TABLET (FRENCH) * CONSTIPATION (ADULT) (FRENCH) * DIET: HIGH FIBER, DISCHARGE INSTRUCTIONS (FRENCH) documented in this encounter Medications at Time [...] Cardoza APRN - 04/12/2017 9:03 AM CDT [facility] Hospitalist - Progress Note Patient Name: Isiah Do Board Account No: [id number] Date of : 1950 Date of Admission: [...] re results (as indicated), current inpatient medications, obiee consultant notes and s upport staff notes [...] Continue amlodipine COPD (chronic obstructive pulmonary disease) ([facility]) Stable, quit smoking 7 years ago. No signs of exacerbation -continue breo and nebs Chronic pain Stable, Continue gabapentin and elavil See my orders for additional details regarding this patients treatment plan. Room: [address] [place] [address] Diet: Diet-Consistent Carbohydrate (75 gm) Code Status: [...] p rochlorperazine OR prochlorperazine Honey Abdullahi APRN [facility] Hospitalist Please page through physician paging. > 25 minutes spent on chart review, exam, orders and patient education. >50% of this time was spent face to face with the patient. . * Maryam Cornell RN APRN - 04/12/2017 8:58 AM CDT [facility] Orthopedic Daily Progress Note Patient Name: Isiah Do Earline Date: 04/12/2017 Hospital Day # LOS: 3 days Procedure: removal of hardware and revision of left ankle arthrodesis on 04/09/[address] Adelaida Olivas Assessment/Plan: Active Problems: COPD (chronic obstructive pulmonary disease) ([facility]) Chronic pain Type 2 diabetes mellitus with [...] to display Maryam Cornell APRN- Orthopedics Pager [phone] * Heriberto Acosta MD - 04/11/2017 8:59 AM CDT [facility] Hospitalist - Progress Note Patient Name: Isiah Benítez Account No: [id number] Date of : 1950 Date of Admission: [...] results (as indicated), current inpatient medications and intranet support notes with pertainent findings noted within the assessment/plan. Assessment/Plan Ms. Isiah Benítez is a 66 y.o. female who was admitted on 04/09/2017 with ankle p ain. Problems addressed with today's visit include: Type 2 diabetes mellitus with hyperglycemia, with long-term current use of insul in ([facility]) Mildly hyperglycemic, likely due to stress/pain- will continue current basal/marita wilbert insulin dosing and monitor. SASHA on CPAP She is trying to be more compliant with CPAP use Benign essential HTN Continue amlodipine COPD (chronic obstructive pulmonary disease) ([facility]) Stable -continue breo and nebs -quit smoking 7 years ago Closed left ankle fracture Management by primary service Chronic pain Continue gabapentin and elavil See my orders for additional details regarding this patients treatment plan. Room: [address] [place] [address] Diet: Diet-Consistent Carbohydrate (75 gm) Code Status: [...] p rochlorperazine OR prochlorperazine Heriberto Acosta MD [facility]ist Please page through physician paging. . * Walker Funez MD - 04/11/2017 8:50 AM CDT [facility] Orthopaedic Progress Note [...] Acosta MD - 04/10/2017 12:31 PM CDT [facility] Hospitalist - Progress Note Patient Name: Isiah Do Board Account No: [id number] Date of : 1950 Date of Admission: [...] results (as indicated), current inpatient medications and intranet support notes with pertainent findings noted within the assessment/plan. Assessment/Plan Ms. Isiah Benítez is a 66 y.o. female who was admitted on 04/09/2017 with ankle p ain. Problems addressed with today's visit include: Type 2 diabetes mellitus with hyperglycemia, with long-term current use of insul in ([facility]) Remains hyperglycemic post-op- will increase basal insulin dose and correction level and monitor. SASHA on CPAP She is trying to be more compliant with CPAP use Benign essential HTN Continue amlodipine COPD (chronic obstructive pulmonary disease) ([facility]) Stable -continue breo and nebs -quit smoking 7 years ago Closed left ankle fracture Management by primary service Chronic pain Continue gabapentin and elavil See my orders for additional details regarding this patients treatment plan. Room: [address] [place] [address] Diet: Diet-Consistent Carbohydrate (75 gm) Code Status: [...] OR prochlorperazine OR prochlorperazine Heriberto Acosta MD [facility] Please page through physician paging. . * Walker Funez MD - 04/10/2017 7:22 AM CDT [facility] Orthopaedic Progress Note [...] encounter H&P Notes * Maryam Cornell RN COMPENSATION CONSULTANT - 04/08/2017 4:00 [place] [address] History and Physical PATIENT NAME: Isiah Do Earline DATE: 04/08/2017 CPI: [id number] AGE: 66 y.o. : 1950 HISTORY OF [...] mutually agreed upon goals. 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 Social History: She reports [...] results (as indicated), current inpatient medications and intranet support notes with pertainent findings noted within the assessment/plan. Assessment/PlanMs. Isiah Benítez is a 66 y.o. female who was admitted on 04/09/20 17 with complaint of left ankle surgery. IDDM (insulin dependent diabetes mellitus) ([facility]) Continue lantus 15 u qhs [...] cont inue to follow. Sheryl Paredes DO [facility] Please page through physician paging. . [...] a negative biological and were sterilized in [facility] Sterile Processing Department. documented in this encounter Miscellaneous Notes * Care Progression Final DC Note - Fiorella Diana RN - 04/12/2017 2:56 PM CDT Final Discharge Note Discharge goal and plan is mutually agreed upon by patient and Care Coordinaton. Patient will discharge to: [facility] Transportation: daughter Discharge Time: after 5:00pm Special [...] General Discharge Note Called patients preferred pharmacy EXPO [phone] to inquire cost of soraya xaparin 40mg [id number] #30. Cost to patient is $3.30. Prescription called in and ready for pickup at discharge. Will follow for any other needs at discharge. Shazia Diana SURVEY PARTY CHIEF Bone Char Kiln Tender [phone] * Discharge Planning - Fiorella Diana RN - 04/12/2017 9:38 AM CDT Discharge Planning Interventions General Discharge Note Reviewed discharge orders. HH is not ordered for discharge. Spoke with Maryam elmore RN COMPENSATION CONSULTANT who confirms that HH is not necessary [...] RW at home Prior Function Level of [place] Independent with ADLs;Independent with ambulation;Independ ent with [...] RW at home Prior Function Level of [place] Independent with ADLs;Independent with ambulation;Independ ent with [...] mutually agreed upon goals. Teri Rubio LCSW, Animal Shelter Worker [phone] Patient's Living Arrangement: House Support System: Children. [...] mutually agreed upon goals. Teri Rubio LCSW, Animal Shelter Worker [phone] Referral to see patient was placed by [...] MD and recei ves their medications from [facility] [address] [place], [place] - [address] [address] AT [place] [address] [address] [facility] [address] [address] [facility] [address] [place], [place] - [address] [place] [address] AT [facility] & [address] [facility] [phone] * Plan of Care - Terrie Gallagher [...] Associated Problem(s): COPD (chronic obstructive pulmonary disease) ([facility]) Stable, quit smoking 7 years ago. No signs of exacerbation -continue breo and nebs * Assessment & Plan Note - Honey Cardoza APRN - 04/09/2017 10:00 PM CDT Associated Problem(s): Type 2 diabetes mellitus with hyperglycemia, with long-te rm current use of insulin ([facility]) Mildly hyperglycemic, likely due to stress/pain- -Continue [...] 04/09/2017 6:35 AM CDT PRIMARY SURGEON: Dr. dAelaida Olivas PHARMACIST'S AIDE: Geraldine Neves CST ESTIMATED BLOOD LOSS: Minimal. No intraoperative complications. PREOPERATIVE DIAGNOSIS: Failed tibiotalar arthrodesis. POSTOPERATIVE DIAGNOSIS: Failed tibiotalar arthrodesis. OPERATIONS PERFORMED: Removal of hardware through 3 separate incisions, [place] s tendon lengthening, tibiotalar fusion, fibular osteotomy with bone stimulator insertion and open ankle arthrodesis. COMPLICATIONS: There were no intraoperative complications. OPERATIVE IMPLANTS: Include 8.0 mm cannulated screw from [place] with the [facility] lateral fusion plate, no intraoperative complications. PREOPERATIVE [...] guidewire for 8.0 mm cannulated screw from [employer] was subsequently placed onto the anterolateral portion of the patient's distal fibula into the talus. This yielded excellent compression. Clinical alignment was checked, a [place] lateral fusion plate was subsequently applied usi [...] POC 180 (H) 70 - 100 mg/dL [facility] Specimen Performing Organization Address City/State/Zipcout Ph one Number [facility] [address] [facility], [place] [id number] [facility] [address] [place] [facility] [place] [address], [facility] * Basic Metabolic Panel (04/10/2017 10:18 AM CDT) Only the most recent of 2 results within the time period is included. Pathologist [facility] Sodium 139 133 - 147 MEQ/L [facility] Potassium 4.2 3.5 - 5.3 MEQ/L [facility] Chloride 102 96 - 112 MEQ/L [facility] Carbon Dioxide 25 20 - 32 MEQ/L [facility] Anion Gap 11 5 - 17 [facility] Calcium 8.8 8.4 - 10.5 mg/dL [facility] Glucose 209 (H) 70 - 100 mg/dL [facility] Blood Urea 18 7 - 26 mg/dL [facility] N[facility] Creatinine 1.0 0.4 - 1.1 mg/dL [facility] eGFR Female AA 67 60 - 200 [facility] Comment: [facility] Chronic Kidney Disease less [facility] than 60 mL/min/1.73 sq.m Kidney failure less than 15 mL/min/1.73 sq.m eGFR Female 56 (L) 60 - 200 [facility] Non-AA Comment: [facility] Chronic Kidney Disease less [facility] than 60 mL/min/1.73 sq.m Kidney failure less than 15 mL/min/1.73 sq.m Specimen Blood Narrative Performed At This order is a replacement of the rejected order wit h accession number [facility] [id number]. [facility] Performing Organization Address City/State/Zipcode Ph one Number [facility] [address] [facility] [place] [address] [facility] [address] [facility] [place] [address], [facility] * Complete Blood Count (04/10/2017 8:42 AM CDT) WBC 18.60 (H) 4.00 - 11.00 TH/uL [facility] RBC 4.04 4.00 - 5.00 MIL/uL [facility] Hemoglobin 13.4 12.0 - 15.0 g/dL [facility] Hematocrit 40 36 - 45 % [facility] MCV 99 80 - 99 fL [facility] MCH 33 27 - 34 pg [facility] MCHC 34 32 - 36 % [facility] RDW 13.5 9.0 - 14.5 % [facility] Platelet Count 217 140 - 400 TH/uL [facility] MPV 10.5 9.4 - 12.3 fL [facility] Specimen Blood Performing Organization Address City/State/Zipcode Ph one Number [facility] [address] [facility] [place] [address] [facility] [address] [facility] [place] [address], [facility] * XR Ankle min 3 views left (04/09/2017 3:18 PM CDT) Specimen Impressions Performed At FINDINGS/IMPRESSION: [facility] Intra-operative fluoroscopy was utilize d. Fluoroscopy time [...] deta ils regarding real-time findings. READING SITE: [facility] . Narrative Performed At Patient: ISIAH BENÍTEZ Sex#: F # 1950 Jose#: [id number] Location: [facility] MAIN OR NONE Procedure Requested: [id number] XR ANKLE MIN 3 VIEWS LEFT Reason for Exam: ankle pain Exam Ordered: 04/09/2017 12 54 Exam Date/Time: 04/09/2017 151 8 Begin exam date/time: 04/09/2017 125 4 XR ANKLE MIN 3 VIEWS LEFT INDICATION: ankle pain COMPARISON: CT from 02/18/2017. Procedure Note Interface, Rad Results In - 04/09/2017 4:05 PM CDT Patient: ISIAH BENÍTEZ Sex#: Paulina # 1950 Jose#: [id number] Location: [facility] MAIN OR NONE Procedure Requested: [id number] XR ANKLE MIN 3 VIEWS LEFT Reason [...] full details regarding real-time findings. READING SITE: [facility]. Performing Organization Address City/State/Zipcode Ph one Number [...]
--- OUTSIDE RECORDS SUMMARY | 2020-03-12 09:19 | XMS REPORT | Encounter Summary ---
Author Author [facility] Organization [facility] Address Unknown Phone Unavailable Care Team Providers Care Merry Go Round Operator Name Role Phone Ebony Sharp MD PCP Reason for Visit * Auth/Cert Referred By Contact Referred To Contact Status Reason Specialty Diagnoses / Procedures Diagnoses M19.072 P rocedures [place] ARTHRODESIS,ANKLE, OPEN LEFT ANKLE REMOVAL OF HARDWARE REVISION ARTHRODESIS LEFT ANKLE Encounter Details Care Team Description Date Type Department Winston Hendricks MD [address] [place] [address] [phone] Bernardino Herrera RN THREAD CHECKER [address] [place] [address] [phone] 04/09/2017 Anesthesia [facility] [address] [place] [address] Anesthesia Record Responsible Anesthesiologist Anesthesia Start Time [...] 0747 04/09/17 1528 by Marisa Masters RN THREAD CHECKER Non-Surgic Date: 04/09/17; Time: 1249; Able to mas k 04/09/17 1249 by Bernardino lyons Airway ventilate prior to placement: Yes; Arslan lewis RN THREAD CHECKER Placed By: Tie Up Worker; Site: Oral; Device: LMA; Size: 4; Placement [...] risks discussed with patient. Plan discussed with THREAD CHECKER. Post-operative analgesia: routine analgesia and antiemetics and nerve block for post-op analgesia Recovery plan: PACU Risk factors for PONV: female and non smoker PONV risk level: moderate documented in this encounter Plan of Treatment Date/Time Name Type Priority Associated Diag noses 04/09/2017 5:58 PM CDT ANESTHESIA PERIPHERAL LA Charge Routine BLOCK 04/09/2017 5:59 PM CDT ANESTHESIA PERIPHERAL LA Charge Routine BLOCK documented as of this [...] (SUBLIMAZE) injection Given Intravenous, As needed, Starting 04/09/17 at 1253, Anesthesia Intra-op 04/09/2017 2:15 PM [...]
--- OUTSIDE RECORDS SUMMARY | 2020-03-12 09:19 | XMS REPORT | Encounter Summary ---
Author Author [facility] Organization [facility] Address Unknown Phone Unavailable Care Team Providers Care Family And Divorce Legal Assistant Name Role Phone Ebony Sharp MD PCP Encounter Details Care Team Description Date Type Department Adelaida Olivas MD [address] [facility] [address] [place], [place] [id number] 04/09/2017 Hist-Transcript Scalp Level Orthopaedi c ion Encounter Specialists [address] [facility] [address] [place], [place] [id number] Social History Date Tobacco Use Types Packs/Day [...] CDT Influenza 08/30/2017 08/30/2019 08/30/2019 1:09 PM OPERATIONAL RISK MANAGER Influenza - Rule Out 08/30/2019 08/31/2019 09/17/2019 8:17 AM OPERATIONAL RISK MANAGER RSV 08/31/2019 documented as of this encounter
--- OUTSIDE RECORDS SUMMARY | 2020-03-12 09:19 | XMS REPORT | Encounter Summary ---
Author Author [facility] Organization [facility] Address Unknown Phone Unavailable Care Team Providers Care Deburring And Tooling Machine Operator Name Role Phone Ebony Sharp MD PCP Encounter Details Care Team Description Date Type Department Jennifer Feng RN 04/07/2017 Telephone [facility] Primar y Care - [facility] [address] [facility] [address] [place], [place] [address] Social History Date Tobacco Use Types Packs/Day [...] - 04/07/2017 2:28 PM CDT Renee mcfarlane [facility] called requesting a surgical approval for pt. States she is reagan eduled to have removal of hardware in her ankle on 04/09/17. It appears we have n ot seen her since her last ED visit (no show for appt on 02/19/17 but that is whe n she had her ankle injury). Please advise. Thank you. documented in this encounter Plan of Treatment Not on filedocumented as of this encounter Visit Diagnoses Not on filedocumented in this encounter
--- OUTSIDE RECORDS SUMMARY | 2020-03-12 09:20 | XMS REPORT | Encounter Summary ---
Author Author Organization Address Unknown Phone Unavailable Care Team Providers Care Ammonia Solution Preparer Name Role Phone Ebony Sharp MD PCP Reason for Visit * Reason Comments Medication Refill Encounter Details Care Team Description Date Type Department Jennifer Feng, denier control operator Refill 03/29/2017 Refill [facility] Primar y Care - [facility] [address] [facility] [address] [place], [place] [address] Social History Date Tobacco Use Types Packs/Day [...] uncontrolled diabetes). * Telephone Encounter - Jennifer Feng, ADAM - 03/29/2017 12:38 PM CDT Pending appt on 04/27/17. Pt is having ankle fusion on 04/09/17. documented in this encounter Plan of Treatment Not on filedocumented as of this encounter Visit Diagnoses Not on filedocumented in this encounter
--- OUTSIDE RECORDS SUMMARY | 2020-03-12 09:20 | XMS REPORT | Encounter Summary ---
Author Author [facility] Organization [facility] Address Unknown Phone Unavailable Care Team Providers Care Head Automatic Sawyer Name Role Phone Ebony Sharp MD PCP Encounter Details Care Team Description Date Type Department Ebony Sharp MD [address] [facility] [address] [place], [place] [id number] 02/26/2017 [facility] [address] [facility] [address] [place], [place] [id number] Social History Date Tobacco Use Types Packs/Day [...]
--- OUTSIDE RECORDS SUMMARY | 2020-03-12 09:20 | XMS REPORT | Encounter Summary ---
Author Author [facility] Organization [facility] Address Unknown Phone Unavailable Care Team Providers Care Workforce Management Coordinator Name Role Phone Ebony Sharp MD PCP Reason for Visit * Reason Comments Follow-up Margot left ankle [id number]: Appt. Reminder (03/12/2017 06:20 PM) Phone Call - Message Delivered (X=Answe ring Machine) Encounter Details Care Team Description Date Type Department Adelaida Olivas MD [address] [facility] [address] [place] [address] [phone] 03/16/2017 Hist-Appointmen Aide Orthopaedi c t Specialists [address] [facility] [address] [place] [address] Social History Date Tobacco Use Types Packs/Day [...]
--- OUTSIDE RECORDS SUMMARY | 2020-03-12 09:20 | XMS REPORT | Encounter Summary ---
Author Author [facility] Organization [facility] Address Unknown Phone Unavailable Care Team Providers Care Womens Volleyball Coach Name Role Phone Ebony Sharp MD PCP Reason for Referral * MRI/CAT/PET Scan (Routine) Referred By Contact Referred To Contact Status Reason Specialty Diagnoses / Procedures Adelaida Olivas MD [address] [facility] [address] [place] [address] [place] [address] Closed Radiology Diagnoses Bone fracture P rocedures CT Ankle wo contrast left Reason for Visit * MRI/CAT/PET Scan (Routine) Referred By Contact Referred To Contact Status Reason Specialty Diagnoses / Procedures Adelaida Olivas MD [address] [facility] [address] [place] [address] [place] [address] Closed Radiology Diagnoses Bone fracture P rocedures CT Ankle wo contrast left Encounter Details Care Team Description Date Type Department Adelaida Olivas MD [address] [facility] [address] [place] [address] [phone] Bone fracture 02/18/2017 [facility] [address] [place] [id number] Social History Date Tobacco Use Types Packs/Day [...] the prior exam on . READING SITE: [facility] Narrative Performed At Patient: ISIAH BENÍTEZ Sex#: F # 1950 Jose#: [id number] Location: [facility] Procedure Requested: [id number] CT ANKLE WO CONTRAST LEFT Reason for [...] 3:08 PM CDT Patient: ISIAH BENÍTEZ Sex#: Paulina # 1950 Jose#: [id number] Location: [facility] Procedure Requested: [id number] CT ANKLE WO CONTRAST LEFT Reason for [...] the prior exam on 12/01/2016. READING SITE: [facility] Performing Organization Address City/State/[facility] Ph one Edgar SIMS documented in this encounter Visit Diagnoses Diagnosis Bone fracture Closed fracture of unspecified bone documented in this encounter
--- OUTSIDE RECORDS SUMMARY | 2020-03-12 09:20 | XMS REPORT | Encounter Summary ---
Author Author [facility] Organization [facility] Address Unknown Phone Unavailable Care Team Providers Care Filling Station Attendant Name Role Phone Ebony Sharp MD PCP Reason for Referral * MRI/CAT/PET Scan (Routine) Referred By Contact Referred To Contact Status Reason Specialty Diagnoses / Procedures Adelaida Olivas MD [address] [facility] [place] [address] [place] [address] [place] [address] Closed Radiology Diagnoses Bone fracture P rocedures CT Ankle wo contrast left Encounter Details Care Team Description Date Type Department Adelaida Olivas MD [address] [facility] [place] [address] [place] [address] [phone] Bone fracture (Primary Dx) 02/16/2017 Transcribe [facility] Social History Date Tobacco Use Types [...] the prior exam on . READING SITE: [facility] Imaging Narrative Performed At Patient: ISIAH PATTEN Sex#: Paulina # [id number] Jose#: [id number] Location: [facility] CT Procedure Requested: [id number] CT ANKLE WO CONTRAST LEFT Reason for [...] - 02/18/2017 3:08 PM CDT Patient: ISIAH PATTEN Sex#: F # [id number] Jose#: [id number] Location: [facility] CT Procedure Requested: [id number] CT ANKLE WO CONTRAST LEFT Reason for [...] the prior exam on 12/01/2016. READING SITE: [facility] Imaging Performing Organization Address City/State/Zipcode Ph one Edgar ABIDESTINEE documented in this encounter Visit Diagnoses Diagnosis Bone fracture Closed fracture of unspecified bone documented in this encounter Additional Health Concerns Last Indicated Resolved Time Infection Onset Date 08/30/2017 04/19/2018 12:13 PM CDT Influenza 08/30/2017 08/30/2019 08/30/2019 1:09 PM CHILD AND ADOLESCENT PSYCHOLOGIST Influenza - Rule Out 08/30/2019 08/31/2019 09/17/2019 8:17 AM CHILD AND ADOLESCENT PSYCHOLOGIST RSV 08/31/2019 documented as of this encounter
--- OUTSIDE RECORDS SUMMARY | 2020-03-12 09:20 | XMS REPORT | Encounter Summary ---
Author Author [facility] Organization [facility] Address Unknown Phone Unavailable Care Team Providers Care Oxygen Tank Filler Name Role Phone Ebony Sharp MD PCP Encounter Details Care Team Description Date Type Department Adelaida Olivas MD [address] [facility] [address] [place], [place] [id number] Other synovitis and tenosynovitis, left ankle and foot; Other specified disorders of tendon, left ankle and foot; Osteoarthritis of left ankle, unspecified osteoarthritis type 03/29/2017 Lab [facility] [phone] Social History Date Tobacco Use Types Packs/Day [...] WBC 6.56 4.00 - 11.00 TH/uL [facility] RBC 4.00 4.00 - 5.00 MIL/uL [facility] CheckInPageS [facility] Hemoglobin 13.2 12.0 - 15.0 g/dL [facility] Hematocrit 41 36 - 45 % [facility] Abdi Location LabsS [facility] MCV 103 (H) 80 - 99 fL [facility] MCH 33 27 - 34 pg [facility] MCHC 32 32 - 36 % [facility] RDW 13.6 9.0 - 14.5 % [facility]Shaz[facility] Abdi Location LabsS [facility] Platelet Count 140 140 - 400 TH/uL [facility] MPV 10.0 9.4 - 12.3 fL [facility] Specimen Blood Performing Organization Address City/State/Zipcode Ph one Number [facility] [address] [employer] [place] [facility] [id number] [facility] [address] [employer] [address], [facility] * Prothrombin Time/INR (03/29/2017 11:09 AM CDT) Protime 13.1 11.4 - 15.0 sec [facility] INR 1.0 0.8 - 1.2 [facility] Specimen Blood Performing Organization Address City/[facility] Ph one Number [facility] [address] [facility] [place], [place] [id number] [facility] [address] [place] [address], [facility] * APTT (03/29/2017 11:09 AM CDT) APTT 27 22 - 34 sec [facility] Specimen Blood Performing Organization Address [facility] one Number [facility] [address] [facility] [place] [address] [facility] [address] [facility] [place] [address], [place] [phone] [facility] * Basic Metabolic Panel (03/29/2017 11:09 AM CDT) Sodium 141 133 - 147 MEQ/L [facility] Potassium 4.1 3.5 - 5.3 MEQ/L [facility] Chloride 102 96 - 112 MEQ/L [facility] Carbon Dioxide 27 20 - 32 MEQ/L [facility] Anion Gap 12 5 - 17 [facility]ERT [facility] Calcium 9.2 8.4 - 10.5 mg/dL [facility] Glucose 222 (H) 70 - 100 mg/dL [facility] Blood Urea 13 7 - 26 mg/dL [facility] Nitrogen [facility] Creatinine 0.8 0.4 - 1.1 mg/dL [facility] eGFR Female AA 87 60 - 200 [facility] Comment: [facility] AG[facility] Chronic Kidney Disease less [facility] than 60 mL/min/1.73 sq.m Kidney failure less than 15 mL/min/1.73 sq.m eGFR Female 72 60 - 200 [facility] Non-AA Comment: [facility] AGUST[facility] Chronic Kidney Disease less [facility] than 60 mL/min/1.73 sq.m Kidney failure less than 15 mL/min/1.73 sq.m Specimen Blood Performing Organization Address City/State/Zipcode Ph one Number [facility] [address] [employer] [place] [address] [facility] [address] [facility] [place] [address], [facility] documented in this encounter Visit Diagnoses Diagnosis Other synovitis and tenosynovitis, left ankle and foot Other specified disorders of tendon, le ft ankle and foot Osteoarthritis of left ankle, unspecifi ed osteoarthritis type documented in this encounter
--- OUTSIDE RECORDS SUMMARY | 2020-03-12 09:20 | XMS REPORT | Encounter Summary ---
Author Author [facility] Organization [facility] Address Unknown Phone Unavailable Care Team Providers Care Steel Rule Die Maker Apprentice Name Role Phone Ebony Sharp MD PCP Reason for Visit * Reason Comments Other Encounter Details Care Team Description Date Type Department Ebony Sharp MD [address] [facility] [address] [place], [place] [phone] Other 04/06/2017 Refill [facility] Primar y Care - East [address] [facility] [address] [place], [place] [phone] Social History Date Tobacco Use Types Packs/Day [...] CDT Influenza 08/30/2017 08/30/2019 08/30/2019 1:09 PM STAFF SOFTWARE ENGINEER Influenza - Rule Out 08/30/2019 08/31/2019 09/17/2019 8:17 AM STAFF SOFTWARE ENGINEER RSV 08/31/2019 documented as of this encounter
--- OUTSIDE RECORDS SUMMARY | 2020-03-12 09:20 | XMS REPORT | Encounter Summary ---
Author Author [facility] Organization [facility] Address Unknown Phone Unavailable Care Team Providers Care Machine Erector Name Role Phone Ebony Sharp MD PCP Encounter Details Care Team Description Date Type Department Adelaida Olivas MD [address] [facility] [address] [place], [place] [phone] 02/11/2017 Hist-Transcript Aide Orthopaedi c ion Encounter Specialists [address] [facility] [address] [place], [place] [address] Social History Date Tobacco Use Types Packs/Day [...] and dorsiflex her midfoot. 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 Plan At this [...] used: Print then Give to Patient RxID: [id number] MS CONTIN 15 MG CR-TABS (MORPHINE SULFATE) Take 1 tablet every 12 hours as neede d for pain #56 x 0 Entered by: Sharona Scott Authorized by: Adelaida Olivas MD Signed by: Sharona Scott on 02/11/2017 Method used: Print then Give to Patient RxID: [id number] Vital Signs Ht: 62 in. Wt: 236 [...] Influenza 08/30/2017 08/30/2019 08/30/2019 1:09 PM SUPERVISOR TRAVEL INFORMATION CENTER Influenza - Rule Out 08/30/2019 08/31/2019 09/17/2019 8:17 AM SUPERVISOR TRAVEL INFORMATION CENTER RSV 08/31/2019 documented as of this encounter
--- OUTSIDE RECORDS SUMMARY | 2020-03-12 09:20 | XMS REPORT | Encounter Summary ---
Author Author [facility] Organization [facility] Address Unknown Phone Unavailable Care Team Providers Care Outbound Sales Professional Name Role Phone Ebony Sharp MD PCP Encounter Details Care Team Description Date Type Department Adelaida Olivas MD [address] [facility] [address] [place], [place] [phone] 02/19/2017 [facility] [address] [facility] [address] [place], [place] [address] Social History Date Tobacco Use Types Packs/Day [...] CDT Influenza 08/30/2017 08/30/2019 08/30/2019 1:09 PM RADIATION PHYSICIST Influenza - Rule Out 08/30/2019 08/31/2019 09/17/2019 8:17 AM RADIATION PHYSICIST RSV 08/31/2019 documented as of this encounter
--- OUTSIDE RECORDS SUMMARY | 2020-03-12 09:20 | XMS REPORT | Encounter Summary ---
Author Author [facility] Organization [facility] Address Unknown Phone Unavailable Care Team Providers Care Mounter Smoking Pipe Name Role Phone Ebony Sharp MD PCP Encounter Details Care Team Description Date Type Department Adelaida Olivas MD [address] [facility] [address] [place] [address] 04/02/2017 Hist-Telephone [facility] [address] [facility] [address] [place] [address] Social History Date Tobacco Use [...] called requesting a call from Dr. Olivas surgeon's assistant she w anted to go over her upcoming surgery. Patient can be reached at [phone] Call taken by: Tree Pain[employer] on April 02, 2017 9:34 AM Follow-up for Phone Call Follow-up Details: I left a message for a return phone call. Follow-up by: Kari Young on April 05, 2017 11:54 AM Additional Follow-up for Phone Call Additional Follow-up Details: Patient is returning the above call. Please call b ack at [phone] Additional Follow-up by: Trina Rhodes on April [...] Influenza 08/30/2017 08/30/2019 08/30/2019 1:09 PM SENIOR RUBY DEVELOPER Influenza - Rule Out 08/30/2019 08/31/2019 09/17/2019 8:17 AM SENIOR RUBY DEVELOPER RSV 08/31/2019 documented as of this encounter
--- OUTSIDE RECORDS SUMMARY | 2020-03-12 09:20 | XMS REPORT | Encounter Summary ---
Author Author [facility] Organization [facility] Address Unknown Phone Unavailable Care Team Providers Care Painter Airbrush Name Role Phone Ebony Sharp MD PCP Encounter Details Care Team Description Date Type Department Merrill Harry, PT PT MISSED VISIT DOCUMENTATION 04/02/2017 Home Care Visit [facility] Home Care and [facility] [address] [facility] [address] [place] [address] Social History Date Tobacco Use [...]
--- OUTSIDE RECORDS SUMMARY | 2020-03-12 09:20 | XMS REPORT | Encounter Summary ---
Author Author [facility] Organization [facility] Address Unknown Phone Unavailable Care Team Providers Care Grader Meat Name Role Phone Ebony Sharp MD PCP Encounter Details Care Team Description Date Type Department Adelaida Olivas MD [address] [place] [address] [phone] 02/11/2017 Hist-Other [facility] [address] [place] [address] Social History Date Tobacco Use Types Packs/Day [...]
--- OUTSIDE RECORDS SUMMARY | 2020-03-12 09:20 | XMS REPORT | Encounter Summary ---
Author Author [facility] Organization [facility] Address Unknown Phone Unavailable Care Team Providers Care Kinesiologist Name Role Phone Ebony Sharp MD PCP Reason for Visit * Reason Comments Other Encounter Details Care Team Description Date Type Department Ebony Sharp MD [address] [facility] [address] [place], [place] [phone] Other 02/18/2017 Refill [facility] Primar y Care - [facility] [address] [facility] [address] [place], [place] [address] Social History Date Tobacco Use Types Packs/Day [...]
--- OUTSIDE RECORDS SUMMARY | 2020-03-12 09:20 | XMS REPORT | Encounter Summary ---
Author Author [facility] Organization [facility] Address Unknown Phone Unavailable Care Team Providers Care Port Crane Operator Name Role Phone Ebony Sharp MD PCP Reason for Visit * Reason Comments Other Encounter Details Care Team Description Date Type Department Ebony Sharp MD [address] [facility] [address] [place], [place] [phone] Other 04/05/2017 Refill [facility] Primar y Care - East [address] [facility] [address] [place], [place] [address] Social History Date Tobacco Use Types Packs/Day [...] CDT Influenza 08/30/2017 08/30/2019 08/30/2019 1:09 PM SQUASH CENTRE MANAGER Influenza - Rule Out 08/30/2019 08/31/2019 09/17/2019 8:17 AM SQUASH CENTRE MANAGER RSV 08/31/2019 documented as of this encounter
--- OUTSIDE RECORDS SUMMARY | 2020-03-12 09:20 | XMS REPORT | Encounter Summary ---
Author Author [facility] Organization [facility] Address Unknown Phone Unavailable Care Team Providers Care Media Specialist Name Role Phone Ebony Sharp MD PCP Encounter Details Care Team Description Date Type Department Adelaida Olivas MD [address] [facility] [address] [place], [place] [phone] Other synovitis and tenosynovitis, left ankle and foot (Primary Dx); Other specified disorders of tendon, left ankle and foot; Osteoarthritis of left ankle, unspecified osteoarthritis type 03/29/2017 Transcribe [facility] [phone] Social History Date Tobacco Use Types Packs/Day [...] filedocumented as of this encounter Results * Complete Blood Count (03/29/2017 11:09 AM CDT) WBC 6.56 4.00 - 11.00 TH/uL [facility] RBC 4.00 4.00 - 5.00 MIL/uL [facility] Hemoglobin 13.2 12.0 - 15.0 g/dL [facility] Hematocrit 41 36 - 45 % [facility] MCV 103 (H) 80 - 99 fL [facility] MCH 33 27 - 34 pg [facility] MCHC 32 32 - 36 % [facility] RDW 13.6 9.0 - 14.5 % [facility] Platelet Count 140 140 - 400 TH/uL [facility] MPV 10.0 9.4 - 12.3 fL [facility] Specimen Blood Performing Organization Address City/State/Zipcode Ph one Number [facility] [address] [place], [place] [phone] [facility] [address] [place] [address], [place] [phone] [facility] * Prothrombin Time/INR (03/29/2017 11:09 AM CDT) Protime 13.1 11.4 - 15.0 sec [facility] INR 1.0 0.8 - 1.2 [facility] Specimen Blood Performing Organization Address City/State/[facility] Ph one Number [facility] [address] [place] [address] [facility] [address] [place] [address], [place] [phone] [facility] * APTT (03/29/2017 11:09 AM CDT) APTT 27 22 - 34 sec [facility] Specimen Blood Performing Organization Address City/State/Zipcode Ph one Number [facility] [address] [place], [place] [phone] [facility] [address] [place] [address], [place] [phone] [facility] * Basic Metabolic Panel (03/29/2017 11:09 AM CDT) [facility] Sodium 141 133 - 147 MEQ/L [facility] Potassium 4.1 3.5 - 5.3 MEQ/L [facility] Chloride 102 96 - 112 MEQ/L [facility] Carbon Dioxide 27 20 - 32 MEQ/L [facility] Anion Gap 12 5 - 17 [facility] Calcium 9.2 8.4 - 10.5 mg/dL [facility] Glucose 222 (H) 70 - 100 mg/dL [facility] Blood Urea 13 7 - 26 mg/dL [facility] N[facility] Creatinine 0.8 0.4 - 1.1 mg/dL [facility] eGFR Female AA 87 60 - 200 [facility] Comment: [facility] Chronic Kidney Disease less [facility] than 60 mL/min/1.73 sq.m Kidney failure less than 15 mL/min/1.73 sq.m eGFR Female 72 60 - 200 [facility] Non-AA Comment: [facility] AG[facility] Chronic Kidney Disease less [facility] than 60 mL/min/1.73 sq.m Kidney failure less than 15 mL/min/1.73 sq.m Specimen Blood Performing Organization Address City/State/Zipcode Ph one Number [facility] [address] [facility] [place] [address] [facility] [address] [facility] [place] [facility] [place] [address], [place] [phone] [facility] documented in this encounter Visit Diagnoses Diagnosis Other synovitis and tenosynovitis, left ankle and foot Other specified disorders of tendon, le ft ankle and foot Osteoarthritis of left ankle, unspecifi ed osteoarthritis type documented in this encounter Additional Health Concerns Last Indicated Resolved Time Infection Onset Date 08/30/2017 04/19/2018 12:13 PM CDT Influenza 08/30/2017 08/30/2019 08/30/2019 1:09 PM PNEUMATIC DRUM SANDER Influenza - Rule Out 08/30/2019 08/31/2019 09/17/2019 8:17 AM PNEUMATIC DRUM SANDER RSV 08/31/2019 documented as of this encounter
--- OUTSIDE RECORDS SUMMARY | 2020-03-12 09:20 | XMS REPORT | Encounter Summary ---
Author Author [facility] Organization [facility] Address Unknown Phone Unavailable Care Team Providers Care Program Clinician Name Role Phone Ebony Sharp MD PCP Encounter Details Care Team Description Date Type Department Adelaida Olivas MD [address] [facility] [address] [place], [place] [address] 03/16/2017 Hist-Transcript [facility] ion Encounter Specialists [address] [facility] [address] [place], [place] [address] Social History Date Tobacco Use Types Packs/Day [...] ble dorsalis pedis pulse. Impression NONUNION FRACTURE (KCF93-Q80.8) Potentially symptomatic tibiotalar nonunion. Plan At this [...] used: Print then Give to Patient RxID: [id number] PERCOCET 10-325 MG TABS (OXYCODONE-ACETAMINOPHEN) 1-2 PO Q 4-6 Hours PRN Pain # 90 x 0 Entered by: Sharona Scott Authorized by: Adelaida Olivas MD Signed by: Sharona Scott on 03/16/2017 Method used: Print then Give to Patient RxID: [id number] CYCLOBENZAPRINE HCL 10 MG TABS (CYCLOBENZAPRINE HCL) 1 tablet at bedtime #30 x 0 Entered by: Sharona Scott Authorized by: Adelaida Olivas MD Signed by: Sharona Scott on 03/16/2017 Method used: Print then Give to Patient RxID: [id number] Vital Signs BMI: 43.32 She was encourage [...] Influenza 08/30/2017 08/30/2019 08/30/2019 1:09 PM SENIOR CATERING SALES MANAGER Influenza - Rule Out 08/30/2019 08/31/2019 09/17/2019 8:17 AM SENIOR CATERING SALES MANAGER RSV 08/31/2019 documented as of this encounter
--- OUTSIDE RECORDS SUMMARY | 2020-03-12 09:20 | XMS REPORT | Encounter Summary ---
Author Author [facility] Organization [facility] Address Unknown Phone Unavailable Care Team Providers Care Rehabilitation Psychologist Name Role Phone Ebony Sharp MD PCP Encounter Details Care Team Description Date Type Department Adelaida Olivas MD [address] [facility] [address] [place] [address] 03/30/2017 [facility] [address] [facility] [address] [place] [address] Social History Date Tobacco [...] after surgery. Patient can be reached at [phone]. Call taken by: Tree [employer] on March [...] Call Additional Follow-up Details: Faxed order to [facility]. Additional Follow-up by: Yuki Weber on April [...] CDT Influenza 08/30/2017 08/30/2019 08/30/2019 1:09 PM CARE CENTER MANAGER Influenza - Rule Out 08/30/2019 08/31/2019 09/17/2019 8:17 AM CARE CENTER MANAGER RSV 08/31/2019 documented as of this encounter
--- OUTSIDE RECORDS SUMMARY | 2020-03-12 09:20 | XMS REPORT | Encounter Summary ---
Author Author [facility] Organization [facility] Address Unknown Phone Unavailable Care Team Providers Care Family Day Care Provider Name Role Phone Ebony Sharp MD PCP Reason for Visit * Reason Comments Other Encounter Details Care Team Description Date Type Department Ebony Sharp MD [address] [facility] [address] [place], [place] [phone] Other 02/26/2017 Refill [facility] Primar y Care - East [address] [facility] [address] [place], [place] [address] Social History Date Tobacco Use Types Packs/Day [...] CDT Influenza 08/30/2017 08/30/2019 08/30/2019 1:09 PM ROLL ICER MACHINE Influenza - Rule Out 08/30/2019 08/31/2019 09/17/2019 8:17 AM ROLL ICER MACHINE RSV 08/31/2019 documented as of this encounter
--- OUTSIDE RECORDS SUMMARY | 2020-03-12 09:20 | XMS REPORT | Encounter Summary ---
Author Author [facility] Organization [facility] Address Unknown Phone Unavailable Care Team Providers Care Lab Analyst Name Role Phone Ebony Sharp MD PCP Reason for Visit * Reason Comments Other Encounter Details Care Team Description Date Type Department Ebony Sharp MD [address] [facility] [address] [place], [place] [address] Other 03/21/2017 Refill [facility] Primar y Care - East [address] [facility] [address] [place], [place] [address] Social History Date Tobacco Use Types Packs/Day [...] CDT Influenza 08/30/2017 08/30/2019 08/30/2019 1:09 PM CONSTRUCTION MANAGEMENT INSTRUCTOR Influenza - Rule Out 08/30/2019 08/31/2019 09/17/2019 8:17 AM CONSTRUCTION MANAGEMENT INSTRUCTOR RSV 08/31/2019 documented as of this encounter
--- OUTSIDE RECORDS SUMMARY | 2020-03-12 09:20 | XMS REPORT | Encounter Summary ---
Author Author [facility] Organization [facility] Address Unknown Phone Unavailable Care Team Providers Care Ancillary Specialist Name Role Phone Ebony Sharp MD PCP Reason for Visit * Reason Comments Follow-up eldon lft ankle [id number] [facility] TVX: Appt. Reminder (02/09/2017 07:01 PM) Phone Call - Message Delivered (N=Answered - Entire Message) Encounter Details Care Team Description Date Type Department Adelaida Olivas MD [address] [facility] [address] [place] [address] [phone] 02/11/2017 Hist-Appointmen Aide Orthopaedi c teresa Specialists [address] [facility] [address] [place] [address] Social History Date Tobacco Use Types Packs/Day [...]
--- OUTSIDE RECORDS SUMMARY | 2020-03-12 09:20 | XMS REPORT | Encounter Summary ---
Author Author [facility] Organization [facility] Address Unknown Phone Unavailable Care Team Providers Care Photoflash Powder Mixer Name Role Phone Ebony Sharp MD PCP Reason for Visit * Reason Comments Other Encounter Details Care Team Description Date Type Department Ebony Sharp MD [address] [facility] [address] [place], [place] [id number] Other 02/25/2017 Refill [facility] Primar y Care - East [address] [facility] [address] [place], [place] [id number] Social History Date Tobacco Use Types Packs/Day [...] CDT Influenza 08/30/2017 08/30/2019 08/30/2019 1:09 PM PLANT WRAPPER Influenza - Rule Out 08/30/2019 08/31/2019 09/17/2019 8:17 AM PLANT WRAPPER RSV 08/31/2019 documented as of this encounter
--- OUTSIDE RECORDS SUMMARY | 2020-03-12 09:21 | XMS REPORT | Encounter Summary ---
Author Author [facility] Organization [facility] Address Unknown Phone Unavailable Care Team Providers Care Vice President Business & Corporate Development Name Role Phone Ebony Sharp MD PCP Encounter Details Care Team Description Date Type Department Wyatt Santacruz MD [address] [facility] [address] [place], [place] [id number] 12/04/2016 Hist-Transcript [facility] Encounter Specialists [address] [facility] [address] [place], [place] [id number] Social History Date Tobacco Use Types Packs/Day [...] of her right knee. At this ti ct, she is doing better. On careful questioning, [...] TABS (SIMVASTATIN) as directed VITAMIN D (ERGOCALCIFEROL) 03454 UNIT CAPS (ERGOCALCIFEROL) 69239 units once a w coquille CYCLOBENZAPRINE HCL 10 MG TABS (CYCLOBENZAPRINE HCL) [...] MD on 12/09/2016 Method used: Handwritten RxID: [id number] Vital Signs Ht: 62 in. Wt: 236 [...] CDT Influenza 08/30/2017 08/30/2019 08/30/2019 1:09 PM ACCOUNT ASSISTANT Influenza - Rule Out 08/30/2019 08/31/2019 09/17/2019 8:17 AM ACCOUNT ASSISTANT RSV 08/31/2019 documented as of this encounter
--- OUTSIDE RECORDS SUMMARY | 2020-03-12 09:21 | XMS REPORT | Encounter Summary ---
Author Author [facility] Organization [facility] Address Unknown Phone Unavailable Care Team Providers Care Snagger Name Role Phone Ebony Sharp MD PCP [...] Description Date Type Department Omar Higginbotham MD [address] [place] [address] [phone] [place] [address] [place] [address] [phone] COPD exacerbation (HCC) (Primary Dx); Hypoxia; Epigastric pain 02/04/2017 Emergency [facility] 02/05/2017 [address] [place] [address] Social History Date Tobacco Use Types Packs/Day [...] Hua MD - 02/05/2017 3:30 PM CDT [facility] Hospitalist - Discharge Summary Patient Name: Isiah Benítez Account No: [id number] Date of : 1950 Date of Admission: [...] to be filled and then went at [employer] with her daughter. After eating most of [...] Problems: Type 2 diabetes mellitus without complication ([facility]) Code Status: Full Code Recommended Diet: Diet-Low Fat/Chol, 2gm Na, Consistent Carbohydrate Diet - Consistent Carbohydrate (75 gm) Activity/Restrictions: activity as tolerated Scheduled Follow Up Appointments/Studies ([facility]): No future appointments. Additional Discharge Follow [...] Negative Ketones Urine Negative Negative mg/dL Specific Chappells, UA 1.015 1.001 - 1.030 Hemoglobin Urine [...] or linear fibrosis. No consolidation. READING SITE: [facility] Cardiac Studies during this encouter: No results found. Additional Studies: None Procedures: None Time spent on this inpatient discharge was greater than 30 minutes. Rolo Hua MD [place] Hospitalist Please page through physician paging. . documented in this encounter Discharge Instructions * Attachments The following attachments cannot be sent through Care Everywhere.* COPD, TREATMENT FOR (NORTH KOREAN) * COPD FLARE (NORTH KORE[place]) * DIABETES, TYPE 2, UNDERSTANDING ([place]TH KORE[place]) * TYPE 2 DIABETES, MANAGING ([place]ORE[place]) documented in this encounter Medications at Time [...] this encounter Progress Notes * Krystal Olivas, STRANDING MACHINE OPERATOR - 02/04/2017 4:26 PM CDT Respiratory Care Services Initial Consultation Note Name: Isiah Benítez CPI: [id number] Isiah Benítez was evaluated per RATE Consultation [...] mg 4 mg Intravenous Q6H PRN Ralf bello MD pravastatin (PRAVACHOL) tablet 40 mg 40 [...] Sheryl Paredes, - 02/04/2017 3:12 PM CDT [facility] & Physical Patient Name: Isiah Do Board Account No: [id number] Date of : 1950 Date of Admission: [...] to be filled and then went at [employer] with her daughter. Af ter eating most [...] her father and mother; Stroke in her [facility] and mother. Social History: She reports [...] 1 tablet (100 mg total) by mo [facility] 2 (two) times a day. morphine (MSIR) [...] indicated), current inpatient medications and sales support administrator notes with pertainent findings noted within the [...] for treatment as noted above. Sheryl ParedesDO [place] Hospitalist Please page through physician paging. . documented in this encounter Consult Notes * Zee Roper, RN - 02/05/2017 2:51 PM CDT Diabetes education consult; Pt stated she was diagnosed with DM 2 about 7-8 year s ago and received DM education at [facility] at this time. Reviewed daily DM self [...] in this encounter ED Notes * Jamila Rojas, INSURANCE PREMIUM AUDITOR - 02/04/2017 11:31 AM CDT 02/04/2017 [facility] History Chief Complaint Patient presents with Abdominal [...] history of COPD and uses oxygen at [facility] as needed. She follows up with the applied anthropologist and is on inhalers/nebulizers . She states [...] Negative Ketones Urine Negative Negative mg/dL Specific Chappells, UA 1.015 1.001 - 1.030 Hemoglobin Urine [...] generated with voice recognition software. J Digit Imagin2010;24(4):550-8. XR Chest 2 views (PA and lateral) Final Result Left midlung zone linear opacities consistent with subsegmental atelectasis or linear fibrosis. No consolidation. READING SITE: [facility] Juli have reviewed all of the labs [...] (HCC) 2. Hypoxia 3. Epigastric pain Jamila Rojas, SHILOH 02/04/17 1325 * Nanci Cunha RN - 02/04/2017 10:44 AM CDT Patient reports having a [employer] burrito, found plastic in the burrito patient stopped eating it. Shortly after patient started experiencing cramping pain in s tomach. 9/10 pain. documented in this encounter Miscellaneous Notes * Nutrition Note - Francoise Anders RD - 02/05/2017 1:48 PM CDT Nutrition Education [facility] Patient: Isiah Benítez Age: 66 y.o. : 1950 PRIMARY CARE PROVIDER: Ebony Sharp MD ATTENDING PHYSICIAN: Rolo Hua MD RD consulted for CHO counting Nutrition Education. Chart Reviewed Education Summary: Handout from [facility] provided along with name and number. Review [...] and 2L 02 as needed, provided by [employer] ). Pt resides with her daughter [...] : Intact, Mood: Appropriate, Speech: Normal, Patient Blocker Automatic Name: Daughter- Lauryn Joy, Patient Repres entative Patient's Living Arrangement: House ( Pt resides with her daughter in [facility]) Patients support system has been Support System: Children, Extended family, [facility] Patient has verbalized the following concerns at discharge: Family Concerns: No Pt has Payor: MEDICARE / Plan: MEDICARE PART A B / Product Type: Medicare / Legal Information: Advance Directives: Power of Trust Officer for health care, Legal Documentation: Requested Advance Directives Status: Follow up needed Patients functioning status prior to admission to the hospital was: Functional Screening: Completely Independent Patient currently uses at home: Assistive Devices: Cane, Wheelchair, Walker, Eye glasses Respiratory items:: Oxygen, CPap (2L oxygen as needed) Oxygen Information: Johann e concentrator, Portable tanks Patient states their Income Source: Not employed. Not employed: Disabled, [place] rnment Assistance: Medicare, SS/SSI Income/Expense Information: Income meets expenses Resources Available: Rx benefits Current Community Resources: (No community services utilized at this time.) Verified that patients primary care physician is Ebony Sharp MD and recei ves their medications from [facility] - [place], [place] - [address] SEC of [facility] [address] [facility] [phone] Zo Luna TIN DIPPER,FARMWORKER RICE [phone] * Plan of Care - Juventino Patel [...] and doxycycline. She [facility] to be filled and then went at [employer] with her daughter. After eati ng most [...] Note - Sheryl Paredes DO - 02/04/2017 4:01 PM CDT Associated [...] POC 243 (H) 70 - 100 mg/dL [facility] Specimen Performing Organization Address [facility] Ph one Number [facility] [address] [place] [facility] [place] [address] [facility] [address] [facility] [place] [address], [place] [phone] [facility] * Electrocardiogram (ECG) (02/04/2017 12:20 PM CDT) Specimen Narrative Performed At [facility] ED Test Date: 2017-02-04 Pat Name: ISIAH [facility] Department: ERS Room: SED 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: [id number] : 1950 Requested By: JAMILA ROJAS Order Number: [id number] Reading MD: Measurements Intervals [place] Rate: 80 P: 56 NJ: 168 QRS: 38 QRSD: 102 T: 57 QT: 408 QTc: 471 Interpretive Statements SINUS RHYTHM Compared to ECG 06/30/2016 12:15:13 Sinus tachycardia no longer present T-wave abnormality no longer present Procedure Note Interface, External Ris In - 02/04/2017 12:20 PM CDT [facility] ED Test Date: 2017-02-04 Pat Name: ISIAH [facility] Department: ERS Room: SED 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: [id number] : 1950 Requested By: JAMILA ROJAS Order Number: [id number] Reading MD: Measurements Intervals [place] Rate: 80 P: 56 NJ: 168 QRS: 38 QRSD: 102 T: 57 QT: 408 QTc: 471 Interpretive Statements SINUS RHYTHM Compared to ECG 06/30/2016 12:15:13 Sinus tachycardia no longer present T-wave abnormality no longer present Performing Organization Address City/[facility] Ph one Number TRACEMAST[facility] * XR Chest 2 views (PA and lateral) (02/04/2017 12:10 PM CDT) Specimen Impressions Performed At Left midlung zone linear opacities consistent with M CKESSON subsegmental atelectasis or linear fibr osis. No consolidation. READING SITE: [facility] Narrative Performed At Patient: ISIAH BENÍTEZ Sex#: F # [id number] Jose#: [id number] Location: [facility] SED-01 Procedure Requested: [id number] XR CHEST 2 VIEWS (PA AND LATERAL) [...] ISIAH BENÍTEZ Sex#: F # [id number] Jose#: [id number] Location: [facility] SED- Procedure Requested: [id number] XR CHEST 2 VIEWS (PA AND LATERAL) [...] or linear fibrosis. No consolidation. READING SITE: [facility] Performing Organization Address City/State/Zipcode Ph one Number [facility] * CT Abdomen Pelvis w contrast (02/04/2017 12:02 PM CDT) Specimen Impressions Performed At Lower pole nonobstructive left renal calculus describ ed above. [facility] Surgical absence of gallbladder and gabriela sydni. No other significant or acute abdominal or pelvic process is identified. NOTE: Parts of this report were generated wit [employer] Systems voice recognition software. J Digit Imagin2010;24(4):084-3. Narrative Performed At Patient: ISIAH BENÍTEZ Sex#: F # [id number] Jose#: [id number] Location: [facility] Procedure Requested: [id number] CT ABDOM EN PELVIS W CONTRAST Reason for Exam: RUQ and epigastric p ain Exam Ordered: 02/04/2017 11 26 Exam Date/Time: 02/04/2017 120 2 Begin exam date/time: 02/04/[address] ABDOMEN PELVIS W CONTRAST Indication: RUQ and epigastric pain READING SITE: [facility] Technique: Helical CT images were obtained through [...] 12:47 PM CDT Patient: ISIAH BENÍTEZ Sex#: F # [id number] Jose#: [id number] Location: [facility] ED SED- Procedure Requested: [id number] CT ABDOMEN PELVIS W CONTRAST Reason for Exam: RUQ and epigastric pain Exam Ordered: 02/04/2017 1126 Exam Date/Time: 02/04/2017 1202 Begin exam date/time: 02/04/[address] ABDOMEN PELVIS W CONTRAST Indication: RUQ and epigastric pain READING SITE: [facility] Technique: Helical CT images were obtained through [...] software. J Digit Imagin2010;24(4):724-8. Performing Organization Address [facility] one Number [facility] * Troponin (02/04/2017 10:42 AM CDT) Troponin <0.01 0.00 - 0.03 ng/mL [facility] Comment: [facility] Troponin Value [facility] Interpretation 0.00 - 0.03 Healthy 0.04 - 0.12 Increased Cardiac Risk >0.12 Myocardial Infarction Troponin may not become elevated until 6 to 8 hours after onset of symptoms. Specimen Blood Performing Organization Address [facility] one Number [facility] [address] [facility] [address] [place] [address] [facility] [address] [place] [address], [place] [phone] [facility] * Urinalysis Microscopic Only (02/04/2017 10:42 AM CDT) Microscopic RBC 1 - 5 1 - 5 /hpf [facility] Urine [facility] Microscopic WBC 1 - 5 1 - 5 /hpf [facility] Urine [facility] Epithelial Absent Absent [facility] Cells [facility] Hyaline Cast Absent Absent [facility] Bacteria Absent Absent [facility] Calcium Oxalate Present (A) Absent [facility] Bernadette [facility] Specimen Clean Voided Urine Performing Organization Address City/State/[facility] Ph one Number [facility] [address] [place] [address] [facility] [address] [place] [address], [place] [phone] [facility] * Urinalysis Reflex (02/04/2017 10:42 AM CDT) Appearance, Yellow [facility] Urine [facility] Glucose Urine Negative Negative mg/dL [facility] Bilirubin Urine Negative Negative [facility] Abdi [facility] Ketones Urine Negative Negative mg/dL [facility] Specific 1.015 1.001 - 1.030 [facility] Chappells, UA [facility] - [facility] Hemoglobin Negative Negative [facility] Urine [facility] PH Urine 5.5 5.0 - 8.0 [facility] Protein Urine Negative Negative mg/dL [facility] Qual [facility] Urobilinogen Negative Negative EU/dL [facility] Urine [facility] Nitrite Urine Negative Negative [facility] Leukocyte Positive (A) Negative [facility] Esterase [facility] Specimen Clean Voided Urine Performing Organization Address City/[facility] Ph one Number [facility] [address] [facility] [place] [address] [facility] [address] [facility] [place] [address], [place] [phone] [facility] * Lipase (02/04/2017 10:42 AM CDT) Lipase 107 23 - 300 IU/L [facility] Specimen Blood Performing Organization Address City/[facility] Ph one Number [facility] [address] [facility] [place] [address] [facility] [address] [facility] [place] [address], [place] [phone] [facility] * Comprehensive Metabolic Panel (02/04/2017 10:42 AM CDT) Sodium 140 133 - 147 MEQ/L [facility] Potassium 4.3 3.5 - 5.3 MEQ/L [facility] Chloride 100 96 - 112 MEQ/L [facility] Carbon Dioxide 30 20 - 32 MEQ/L [facility] Anion Gap 10 5 - 17 [facility] Calcium 9.1 8.4 - 10.5 mg/dL [facility] Glucose 183 (H) 70 - 100 mg/dL [facility] Protein Total 7.9 6.0 - 8.2 g/dL [facility] Serum [facility] Albumin 4.1 3.5 - 5.0 g/dL [facility] Alkaline 94 42 - 140 IU/L [facility] Phosphatase [facility] Alanine 25 13 - 69 IU/L [facility] Aminotransferas [facility] e [facility] Aspartate 33 15 - 46 IU/L [facility] Aminotransferas ALBERT [facility]AZ[facility] e [facility] Bilirubin Total 0.4 0.2 - 1.3 mg/dL [facility] Blood Urea 17 7 - 26 mg/dL [facility] Nitrogen [facility] Creatinine 0.8 0.4 - 1.1 mg/dL [facility] eGFR Female AA 87 60 - 200 [facility] Comment: [facility] AGUSTINS Chronic Kidney Disease less [facility] than 60 mL/min/1.73 sq.m Kidney failure less than 15 mL/min/1.73 sq.m eGFR Female 72 60 - 200 [facility] Non-AA Comment: [facility] AG[facility] Chronic Kidney Disease less [facility] than 60 mL/min/1.73 sq.m Kidney failure less than 15 mL/min/1.73 sq.m Specimen Blood Performing Organization Address City/State[facility] Ph one Number [facility] [address] [facility] [place] [id number] [facility]ATE[facility]ug[facility] PRICE VAMSIS [address] [place] [address], [facility] * CBC and Diff (manual diff if necessary) (02/04/2017 10:42 AM CDT) WBC 8.93 4.00 - 11.00 TH/uL SH[facility]TE[facility] AGUSTIN [facility] RBC 3.97 (L) 4.00 - 5.00 MIL/uL [facility] Eugenia ZAZUETAS [facility] Hemoglobin 12.7 12.0 - 15.0 g/dL [facility] Hematocrit 39 36 - 45 % [facility] MCV 99 80 - 99 fL [facility] MCH 32 27 - 34 pg [facility] MCHC 32 32 - 36 % [facility] RDW 14.6 (H) 9.0 - 14.5 % [facility] Platelet Count 152 140 - 400 TH/uL [facility] MPV 9.6 9.4 - 12.3 fL [facility] % Neutrophils 59 45 - 78 % [facility] %Lymphocytes 27 15 - 47 % [facility] %Monocytes 10 0 - 12 % [facility] %Eosinophils 4 0 - 7 % [facility] %Basophils 0 0 - 2 % [facility] # Granulocytes 5.25 1.7 - 6.8 TH/uL [facility] # Lymphocytes 2.44 1.0 - 3.3 TH/uL [facility] # Monocytes 0.87 0.2 - 0.9 TH/uL [facility] # Eosinophils 0.34 0.0 - 0.4 TH/uL [facility] # Basophils 0.03 0.0 - 0.1 TH/uL [facility] Specimen Blood Performing Organization Address City/State/Zipcode Ph one Number [facility] [address] [place] [employer] Assist [facility] [place] [address] [facility] [address] [place] [employer] Assist [facility] [place] [address], [facility] documented in this encounter Visit [...] moderate (4-6) or severe (7-10) pain, Starting [facility] 02/04/17 at 1551, Administer over 2 minutes; [...] maintenance therapy for asthma, First dose on Ju 02/04/17 at 1612, Rinse mout h with water [...] low blood sugar, low blood sugar, Starting Ju 02/04/17 [...] before meals and nightly, First dose on Ju 02/04/17 at 1700, LEVEL 1 Give in addition [...] mL, Intravenous, Once in imaging, contrast, Starting Wed02/04/17 at 1203, For 1 dose 02/04/2017 12:09 PM CDT 3 mL ipratropium-albuterol (DUO-NEB) 0.5-3 Given mg/3 mL nebulizer solution 3 mL 3 mL, Inhalation, Once, Wed02/04/17 at 1128, For 1 dose 02/05/2017 3:43 [...]
--- OUTSIDE RECORDS SUMMARY | 2020-03-12 09:21 | XMS REPORT | Encounter Summary ---
Author Author [facility] Organization [facility] Address Unknown Phone Unavailable Care Team Providers Care Blending Tank Tender Helper Name Role Phone Ebony Sharp MD PCP Reason for Visit * Reason Comments Follow-up Marogt lt 12-03-16 HKW TVX: Appt. Reminder (12/22/2016 06:44 PM) Phone Call - Responded "Yes" (Y=Answered - Ye s) Encounter Details Care Team Description Date Type Department Adelaida Olivas MD [address] [facility] [address] [place] [address] [phone] 12/24/2016 Hist-Appointmen [facility] Specialists [address] [facility] [address] [place] [address] Social History Date Tobacco Use Types Packs/Day [...]
--- OUTSIDE RECORDS SUMMARY | 2020-03-12 09:21 | XMS REPORT | Encounter Summary ---
Author Author [facility] Organization [facility] Address Unknown Phone Unavailable Care Team Providers Care Roll Setter Name Role Phone Ebony Sharp MD PCP Reason for Visit * Reason Comments Follow-up TIM lft ankle 01/12/2017 c mlTVX: Appt. Reminder (01/15/2017 06:28 PM) Phone Call - Responded "Yes" (Y=Answere d - Yes) Encounter Details Care Team Description Date Type Department Adelaida Olivas MD [address] [facility] [address] [place] [address] [phone] 01/19/2017 Hist-Appointmen Aide Smithi c t Specialists [address] [facility] [address] [place] [address] Social History Date Tobacco Use Types Packs/Day [...]
--- OUTSIDE RECORDS SUMMARY | 2020-03-12 09:21 | XMS REPORT | Encounter Summary ---
Author Author [facility] Organization [facility] Address Unknown Phone Unavailable Care Team Providers Care Mammalogy Teacher Name Role Phone Ebony Sharp MD PCP Encounter Details Care Team Description Date Type Department Adelaida Olivas MD [address] [facility] [address] [place] [address] 12/04/2016 [facility] [address] [facility] [address] [place], [place] [id number] Social History Date Tobacco Use Types Packs/Day [...] Follow-up Details: Received prior authorization request from [facility] for Percocet 10. Started on [facility] - [phone] Answered all questions and submitted to plan. [...] CDT Influenza 08/30/2017 08/30/2019 08/30/2019 1:09 PM ENGLISH TUTOR Influenza - Rule Out 08/30/2019 08/31/2019 09/17/2019 8:17 AM ENGLISH TUTOR RSV 08/31/2019 documented as of this encounter
--- OUTSIDE RECORDS SUMMARY | 2020-03-12 09:21 | XMS REPORT | Encounter Summary ---
Author Author [facility] Organization [facility] Address Unknown Phone Unavailable Care Team Providers Care Pond Supervisor Name Role Phone Ebony Sharp MD PCP Encounter Details Care Team Description Date Type Department Adelaida Olivas MD [address] [facility] [address] [place], [place] [address] 12/24/2016 Hist-Transcript Aide Orthopaedi c ion Encounter Specialists [address] [facility] [address] [place], [place] [address] Social History Date Tobacco Use Types Packs/Day [...] subtalar pain. Impression HISTORY KNEE JOINT REPLACEMENT ([id number]) OTHER SPECIFIED DISORDERS OF TENDON LEFT ANKLE AND FOOT (MCT22-C41.874) LEFT ANKLE PRIMARY OSTEOARTHRITIS (MHD87-C87.072) DIABETES MELLITUS (KLQ47-O53.9) Status post left ankle arthrodesis with continued [...] TABS (SIMVASTATIN) as directed VITAMIN D (ERGOCALCIFEROL) 28630 UNIT CAPS (ERGOCALCIFEROL) 65380 units once a w [place] CYCLOBENZAPRINE HCL 10 MG TABS (CYCLOBENZAPRINE HCL) [...] used: Print then Give to Patient RxID: [id number] PERCOCET 10-325 MG TABS (OXYCODONE-ACETAMINOPHEN) 1-2 PO Q 4-6 Hours PRN Pain # 60 x 0 Entered by: Sharona Scott Authorized by: Adelaida Olivas MD Signed by: Sharona Scott on 12/24/2016 Method used: Print then Give to Patient RxID: [id number] CYCLOBENZAPRINE HCL 10 MG TABS (CYCLOBENZAPRINE HCL) 1 tablet at bedtime #30 x 0 Entered by: Sharona Scott Authorized by: Adelaida Olivas MD Signed by: Sharona Scott on 12/24/2016 Method used: Print then Give to Patient RxID: [id number] Vital Signs Ht: 62 in. Wt: 236 [...] Influenza 08/30/2017 08/30/2019 08/30/2019 1:09 PM MANAGER STRATEGIC DEVELOPMENT Influenza - Rule Out 08/30/2019 08/31/2019 09/17/2019 8:17 AM MANAGER STRATEGIC DEVELOPMENT RSV 08/31/2019 documented as of this encounter
--- OUTSIDE RECORDS SUMMARY | 2020-03-12 09:21 | XMS REPORT | Encounter Summary ---
Author Author [facility] Organization [facility] Address Unknown Phone Unavailable Care Team Providers Care Family Medicine Physician Name Role Phone Ebony Sharp MD PCP Encounter Details Care Team Description Date Type Department Adelaida Olivas MD [address] [facility] [address] [place], [place] [id number] 12/23/2016 Hist-Telephone [facility] [address] [facility] [address] [place], [place] [address] Social History Date Tobacco Use Types Packs/Day [...] Phone Note Call from Other Clinic Caller: Sheet Hanger Call For: bone stimulator Summary of call: [...] CDT Influenza 08/30/2017 08/30/2019 08/30/2019 1:09 PM ADMINISTRATIVE SUPPORT ASSISTANT Influenza - Rule Out 08/30/2019 08/31/2019 09/17/2019 8:17 AM ADMINISTRATIVE SUPPORT ASSISTANT RSV 08/31/2019 documented as of this encounter
--- OUTSIDE RECORDS SUMMARY | 2020-03-12 09:21 | XMS REPORT | Encounter Summary ---
Author Author [facility] Organization [facility] Address Unknown Phone Unavailable Care Team Providers Care Social Services Analyst Name Role Phone Ebony Sharp MD PCP Reason for Visit * Reason Comments Shortness of Breath x 3 weeks Encounter Details Care Team Description Date Type Department Ebony Carroll NP [address] [facility] [address] [place] [address] COPD exacerbation (HCC) (Primary Dx) 02/04/2017 Office Visit [facility] [address] [facility] [address] [place] [address] Social History Date Tobacco Use [...] this encounter Patient Instructions * Patient Instructions* [place], RAG GRADER - 02/04/2017 8:36 AM CDT Take doxycycline [...] your ankles gets worse Dizziness or weakness [phone] [employer]. [address] [place] [address] 7. All rights reserved. This information is [...] Parasomnia PARASOMNIA IDDM (insulin dependent diabetes mellitus) (HCC) DIABETES MELLITUS HTN (hypertension) HYPERTENSIVE DISORDER SASHA [...] seen them while you were there, teresa lynnugo will be reviewed. You will be told [...] your ankles gets worse Dizziness or weakness [phone] [employer]. [address] [place] [address], [place], [place] [address] 7. All rights reserved. This information is not intended as a substitute for pro fessional medical care. Always follow your healthcare professional's instruction s. documented in this encounter Plan of Treatment Not on filedocumented as of this encounter Visit Diagnoses Diagnosis COPD exacerbation (HCC) Obstructive chronic bronchitis with exa cerbation documented in this encounter
--- OUTSIDE RECORDS SUMMARY | 2020-03-12 09:21 | XMS REPORT | Encounter Summary ---
Author Author [facility] Organization [facility] Address Unknown Phone Unavailable Care Team Providers Care Journeyman Pipefitter Name Role Phone Ebony Sharp MD PCP Reason for Visit * Reason Comments Hospital Follow-up TCM CALL Encounter Details Care Team Description Date Type Department Zee Perez RN Hospital Follow-up (TCM CALL ) 02/08/2017 Telephone [facility] [address] [facility] [address] [place], [place] [phone] Social History Date Tobacco Use Types Packs/Day [...] Perez RN - 02/08/2017 8:59 AM CDT [facility] HOSPITAL FOLLOW UP / TRANSITIONAL CARE COORDINATION PATIENT NAME/DATE OF Caren Patten (1950) DATE OF LAST OFFICE VISIT: 02/04/17 Dr. Sharp FACILITY/ADMISSION DATE: [facility] 02/04/17 DISCHARGE DATE/DISPOSITION: 02/05/17 (Home or Self Care) DISCHARGE DIAGNOSIS: COPD Exacerbation HOSPITAL COURSE: PT was admitted to [facility] on 02/04/17. She was apparently seen in the ED earlier on day of admission and discharged with steroids and doxycycline. She took these to the pharmacy to be filled and then went at [email or web address] with her daughter. After eating most of [...] questions at time of call. ADDITIONAL NOTES: [facility] REHAB THERAPY MANAGER: Zee Perez RN documented in this encounter Plan of Treatment Not on filedocumented as of this encounter Visit Diagnoses Not on filedocumented in this encounter
--- OUTSIDE RECORDS SUMMARY | 2020-03-12 09:21 | XMS REPORT | Encounter Summary ---
Author Author [facility] Organization [facility] Address Unknown Phone Unavailable Care Team Providers Care Lap Hand Tool Name Role Phone Ebony Sharp MD PCP Encounter Details Care Team Description Date Type Department Adelaida Olivas MD [address] [facility] [address] [place] [address] [phone] 01/19/2017 Hist-Other [facility] Hospit al [address] [place] [address] Social History Date Tobacco Use Types Packs/Day [...]
--- OUTSIDE RECORDS SUMMARY | 2020-03-12 09:21 | XMS REPORT | Encounter Summary ---
Author Author [facility] Organization [facility] Address Unknown Phone Unavailable Care Team Providers Care Physical Medicine Specialist Name Role Phone Ebony Sharp MD PCP Encounter Details Care Team Description Date Type Department Ebony Sharp MD [address] [facility] [address] [place], [place] [address] 12/15/2016 Documentation [facility] [address] [facility] [address] [place] [address] Social History Date Tobacco Use [...]
--- OUTSIDE RECORDS SUMMARY | 2020-03-12 09:21 | XMS REPORT | Encounter Summary ---
Author Author [facility] Organization [facility] Address Unknown Phone Unavailable Care Team Providers Care Cartographic Drafter Name Role Phone Ebony Sharp MD PCP Encounter Details Care Team Description Date Type Department Ebony Sharp MD [address] [facility] [address] [place], [place] [phone] 01/08/2017 Documentation [facility] [address] [facility] [address] [place] [address] Social History Date Tobacco Use [...]
--- OUTSIDE RECORDS SUMMARY | 2020-03-12 09:21 | XMS REPORT | Encounter Summary ---
Author Author [facility] Organization [facility] Address Unknown Phone Unavailable Care Team Providers Care Tube Cutter Operator Name Role Phone Ebony Sharp MD PCP Encounter Details Care Team Description Date Type Department Adelaida Olivas MD [address] [facility] [address] [place], [place] [address] 01/19/2017 Hist-Transcript Aide Orthopaedi c ion Encounter Specialists [address] [facility] [address] [place], [place] [address] Social History Date Tobacco Use Types Packs/Day [...] SYNOVITIS AND TENOSYNOVITIS LEFT ANKLE AND FOOT (RQI72-X43.872) LEFT ANKLE PRIMARY OSTEOARTHRITIS (ZWV78-J72.072) LEFT FOOT GANGLION (LJS38-S68.472) Plan At this point, we did discuss [...] TABS (SIMVASTATIN) as directed VITAMIN D (ERGOCALCIFEROL) 50865 UNIT CAPS (ERGOCALCIFEROL) 91604 units once a w [place] CYCLOBENZAPRINE HCL 10 MG TABS (CYCLOBENZAPRINE HCL) [...] used: Print then Give to Patient RxID: [id number] MS CONTIN 15 MG CR-TABS (MORPHINE SULFATE) Take 1 tablet every 12 hours as neede d for pain #56 x 0 Entered by: Kari Young Authorized by: Adelaida Olivas MD Signed by: Kari Young on 01/19/2017 Method used: Print then Give to Patient RxID: [id number] CYCLOBENZAPRINE HCL 10 MG TABS (CYCLOBENZAPRINE HCL) 1 tablet at bedtime #30 x 0 Entered by: Sharona Scott Authorized by: Adelaida Olivas MD Signed by: Kari Young on 01/19/2017 Method used: Print then Give to Patient RxID: [id number] Vital Signs Ht: 62 in. Wt: 236 [...] CDT Influenza 08/30/2017 08/30/2019 08/30/2019 1:09 PM AUTO PORTER Influenza - Rule Out 08/30/2019 08/31/2019 09/17/2019 8:17 AM AUTO PORTER RSV 08/31/2019 documented as of this encounter
--- OUTSIDE RECORDS SUMMARY | 2020-03-12 09:21 | XMS REPORT | Encounter Summary ---
Author Author [facility] Organization [facility] Address Unknown Phone Unavailable Care Team Providers Care Watch Caser Name Role Phone Ebony Sharp MD PCP Encounter Details Care Team Description Date Type Department Adelaida Olivas MD [address] [facility] [address] [place] [address] [phone] 12/24/2016 Hist-Other [facility] Hospit al [address] [place] [address] Social History Date Tobacco Use Types Packs/Day [...] 3:00 PM CDT) Specimen Performing Organization Address City/State/Zipcode Ph one Number [place] documented in this encounter Visit Diagnoses Not on filedocumented in this encounter Additional Health Concerns Last Indicated Resolved Time Infection Onset Date 08/30/2017 04/19/2018 12:13 PM CDT Influenza 08/30/2017 documented as of this encounter
--- OUTSIDE RECORDS SUMMARY | 2020-03-12 09:21 | XMS REPORT | Encounter Summary ---
Author Author [facility] Organization [facility] Address Unknown Phone Unavailable Care Team Providers Care Research And Development Researcher Name Role Phone Ebony Sharp MD PCP Encounter Details Care Team Description Date Type Department Ebony Sharp MD [address] [facility] [address] [place], [place] [address] 01/19/2017 Documentation [facility] [address] [facility] [address] [place] [address] Social History Date Tobacco Use [...]
--- OUTSIDE RECORDS SUMMARY | 2020-03-12 09:21 | XMS REPORT | Encounter Summary ---
Author Author [facility] Organization [facility] Address Unknown Phone Unavailable Care Team Providers Care Inspector Rubber Stamp Die Name Role Phone Ebony Sharp MD PCP Encounter Details Care Team Description Date Type Department Ebony Sharp MD [address] [facility] [address] [place], [place] [address] 01/19/2017 Documentation [facility] [address] [facility] [address] [place] [address] Social History Date Tobacco Use [...]
--- OUTSIDE RECORDS SUMMARY | 2020-03-12 09:21 | XMS REPORT | Encounter Summary ---
Author Author [facility] Organization [facility] Address Unknown Phone Unavailable Care Team Providers Care Invoice Checker Name Role Phone Ebony Sharp MD [...] Care Team Description Date Type Department Tarun Turk MD [address] [place] [address] [phone] Chest pain, unspecified type (Primary Dx ); Anxiety 02/11/2017 Emergency [facility] [address] [place] [facility] [place] [address] Social History Date Tobacco Use Types Packs/Day [...] sent through Care Everywhere.* CHEST PAIN, NONCARDIAC (MACEDONIAN) documented in this encounter Medications at Time [...] She did not sign paperwork. * Tarun Turk MD - 02/11/2017 4:38 PM CDT 02/11/2017 [facility] History Chief Complaint Patient presents with Chest [...] Discussed with patient risks,indications to [facility] ED, and importance of follow up. EKG: [...] Result No acute cardiopulmonary process. READING SITE: [facility] persistent L linear opacity in lung-unchange compared to 1 week ago withno evide nce of consolidation-interpreted by me DIAGNOSIS Problem List Items Addressed This Visit None Visit Diagnoses Chest pain, unspecified type - Primary Anxiety FOLLOW UP Ebony Sharp MD [address] [facility] [address] [place] [address] As needed, If symptoms worsen Discussed with the patient./family/guardian the plan and all questioned fully an swered. Return precautions instructed. ED Course ED Clinical Impression 1. Chest pain, unspecified type 2. Anxiety Tarun Turk MD 02/11/17 1721 Tarun Turk MD 02/11/17 4298 * Janna Stone, RN - 02/11/2017 4:25 [...] She was walking to check out at [facility] when pain started. It was 10/10 pain when it started, it has subsi ded some. She had a similar experience a few years ago and had cardiac workup a nd it was heartburn. * Ebony Stearns RN - 02/11/2017 3:45 PM CDT Bed: [facility] Expected date: Expected time: Means [...] No acute cardiopulmonary process. LEVI READING SITE: [facility] Narrative Performed At Patient: ISIAH BENÍTEZ Sex#: F # [id number] Jose#: [id number] Location: [facility] ED SED-16 Procedure Requested: [id number] XR CHEST SINGLE VIEW FRONTAL Reason for [...] ISIAH BENÍTEZ Sex#: F # [id number] Jose#: [id number] Location: [facility] ED SED- Procedure Requested: [id number] XR CHEST SINGLE VIEW FRONTAL Reason for [...] IMPRESSION No acute cardiopulmonary process. READING SITE: [facility] Performing Organization Address [facility] one Edgar [facility] * Troponin 0 hr (02/11/2017 4:25 PM CDT) Troponin <0.01 0.00 - 0.03 ng/mL [facility] Comment: [facility] Troponin Value [facility] Interpretation 0.00 - 0.03 Healthy 0.04 - 0.12 Increased Cardiac Risk >0.12 Myocardial Infarction Troponin may not become elevated until 6 to 8 hours after onset of symptoms. Specimen Blood Performing Organization Address [facility] Ph one Number [facility] [address] [place] [address] [facility] [address] [facility] [place] [place] [address], [facility] * Prothrombin Time/INR - ONLY if patient is on Warfarin (02/11/2017 4:25 PM CDT) Protime 12.2 11.4 - 15.0 sec [facility] INR 0.9 0.8 - 1.2 [facility] Specimen Blood Performing Organization Address City/State/Zipcode Ph one Number [facility] [address] [facility] [place], [place] [phone] [facility] [address] [facility] [place] [address], [facility] * CBC and Diff (manual diff if necessary) (02/11/2017 4:25 PM CDT) WBC 10.87 4.00 - 11.00 TH/uL [facility] RBC 4.23 4.00 - 5.00 MIL/uL [facility] Hemoglobin 13.4 12.0 - 15.0 g/dL [facility] Hematocrit 42 36 - 45 % [facility] MCV 100 (H) 80 - 99 fL [facility] MCH 32 27 - 34 pg [facility] MCHC 32 32 - 36 % [facility] RDW 15.1 (H) 9.0 - 14.5 % [facility] Platelet Count 195 140 - 400 TH/uL [facility] MPV 9.9 9.4 - 12.3 fL [facility] % Neutrophils 60 45 - 78 % [facility] %Lymphocytes 30 15 - 47 % [facility] %Monocytes 8 0 - 12 % [facility] %Eosinophils 2 0 - 7 % [facility] %Basophils 0 0 - 2 % [facility] # Granulocytes 6.49 1.7 - 6.8 TH/uL K[facility]azia [facility] # Lymphocytes 3.23 1.0 - 3.3 TH/uL [facility] # Monocytes 0.89 0.2 - 0.9 TH/uL [facility] # Eosinophils 0.23 0.0 - 0.4 TH/uL [facility] # Basophils 0.03 0.0 - 0.1 TH/uL [facility] Specimen Blood Performing Organization Address City/State/[facility] Ph one Number [facility] [address] [facility], [place] [phone] [facility] [address] [place] [address], [facility] * Comprehensive Metabolic Panel (02/11/2017 4:25 PM CDT) [facility] Sodium 139 133 - 147 MEQ/L KATEShazia PR[facility] Potassium 3.8 3.5 - 5.3 MEQ/L [facility] Chloride 100 96 - 112 MEQ/L [facility] Carbon Dioxide 32 20 - 32 MEQ/L [facility] Anion Gap 8 5 - 17 [facility] Calcium 8.8 8.4 - 10.5 mg/dL [facility] Glucose 220 (H) 70 - 100 mg/dL [facility] Protein Total 7.5 6.0 - 8.2 g/dL [facility] Serum [facility] Albumin 4.0 3.5 - 5.0 g/dL [facility] Alkaline 105 42 - 140 IU/L [facility] Phosphatase [facility] Alanine 43 13 - 69 IU/L [facility] Aminotransferas [facility] e [facility] Aspartate 40 15 - 46 IU/L [facility] Aminotransferas [facility] e [facility] Bilirubin Total 0.4 0.2 - 1.3 mg/dL [facility] Blood Urea 19 7 - 26 mg/dL [facility] Nitrogen [facility] Creatinine 0.7 0.4 - 1.1 mg/dL [facility] eGFR Female AA 101 60 - 200 [facility] Comment: [facility] Chronic Kidney Disease less [facility] than 60 mL/min/1.73 sq.m Kidney failure less than 15 mL/min/1.73 sq.m eGFR Female 84 60 - 200 [facility] Non-AA Comment: [facility] Chronic Kidney Disease less [facility] than 60 mL/min/1.73 sq.m Kidney failure less than 15 mL/min/1.73 sq.m Specimen Blood Performing Organization Address City/State/Zipcode Ph one Number [facility] [address] [place] [facility] [address] [facility] [address] [place] [facility] [place] [address], [facility] * Electrocardiogram (ECG) (02/11/2017 3:44 PM CDT) Specimen Narrative Performed At [facility] ED Test Date: 2017-02-11 Pat Name: ISIAH BENÍTEZ Department: ERS Room: SED Gender: Female Orthopedic Shoe Maker: [id number] : 1950 Requested By: TARUN TURK Order Number: [id number] Reading MD: Measurements Intervals [place] Rate: 75 P: 48 NE: 144 QRS: 53 QRSD: 106 T: 38 QT: 400 QTc: 447 Interpretive Statements SINUS RHYTHM Compared to ECG 02/04/2017 12:20:16 No significant changes Procedure Note Interface, External Ris In 02/11/2017 3:47 PM CDT [facility] ED Test Date: 2017-02-11 Pat Name: ISIAH BENÍTEZ Department: ERS Room: SED Gender: Female Orthopedic Shoe Maker: [id number] : 1950 Requested By: TARUN TURK Order Number: [id number] Reading MD: Measurements Intervals [place] Rate: 75 P: 48 NE: 144 QRS: 53 QRSD: 106 T: 38 QT: 400 QTc: 447 Interpretive Statements SINUS RHYTHM Compared to ECG 02/04/2017 12:20:16 No significant changes Performing Organization Address City/State/Zipcode Ph one Number [facility] documented in this encounter Visit Diagnoses Diagnosis Chest pain, unspecified type Anxiety Anxiety state, unspecified documented in this encounter
[2020-03-12 09:22] LABS: ALBUMIN 3.9 GM/DL (3.2-4.5)
--- OUTSIDE RECORDS SUMMARY | 2020-03-12 09:22 | XMS REPORT | Encounter Summary ---
Author Author [facility] Organization [facility] Address Unknown Phone Unavailable Care Team Providers Care Design And Sales Consultant Name Role Phone Ebony Sharp MD PCP Encounter Details Care Team Description Date Type Department Juarez Noble 11/02/2016 Hist-Transcript [facility] [facility] ion Encounter Specialists [address] [facility] [address] [place], [place] [id number] Social History Date Tobacco Use Types Packs/Day [...] used: Print then Give to Patient RxID: [id number] Review of Systems General: Complains of sweats. [...] CDT Influenza 08/30/2017 08/30/2019 08/30/2019 1:09 PM HEALTH SUPPORT SPECIALIST Influenza - Rule Out 08/30/2019 08/31/2019 09/17/2019 8:17 AM HEALTH SUPPORT SPECIALIST RSV 08/31/2019 documented as of this encounter
--- OUTSIDE RECORDS SUMMARY | 2020-03-12 09:22 | XMS REPORT | Encounter Summary ---
Author Author [facility] Organization [facility] Address Unknown Phone Unavailable Care Team Providers Care Fire Alarm Installer Name Role Phone Ebony Sharp MD PCP Encounter Details Care Team Description Date Type Department Adelaida Olivas MD [address] [facility] [address] [place] [address] [phone] 11/24/2016 Hist-Other [facility] Hospit al [address] [place] [address] Social History Date Tobacco Use Types Packs/Day [...]
--- OUTSIDE RECORDS SUMMARY | 2020-03-12 09:22 | XMS REPORT | Encounter Summary ---
Author Author [facility] Organization [facility] Address Unknown Phone Unavailable Care Team Providers Care Gear Hobber Set Up Operator Name Role Phone Ebony Sharp MD PCP Reason for Visit * Reason Comments Other Encounter Details Care Team Description Date Type Department Tiburcio Wagoner MD [address] [facility] [address] [place] [address] Other 11/05/2016 Refill [facility] Primmo y Care - [facility] [address] [facility] [address] [place], [place] [id number] Social History Date Tobacco Use Types Packs/Day [...]
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
--- OUTSIDE RECORDS SUMMARY | 2020-03-12 09:22 | XMS REPORT | Encounter Summary ---
Author Author [facility] Organization [facility] Address Unknown Phone Unavailable Care Team Providers Care Funeral Home General Manager Name Role Phone Ebony Sharp MD PCP Encounter Details Care Team Description Date Type Mendy Mckenzie PA-C [address] [address] [phone] 11/02/2016 Hist-Other [facility] [address] [place] [address] Social History Date Tobacco Use Types Packs/Day [...]
--- OUTSIDE RECORDS SUMMARY | 2020-03-12 09:22 | XMS REPORT | Encounter Summary ---
Author Author [facility] Organization [facility] Address Unknown Phone Unavailable Care Team Providers Care Exceptional Children Teacher Assistant Name Role Phone Ebnoy Sharp MD PCP Reason for Visit * Reason Comments Follow-up eldon lft ankle [id number] [facility] TVX: Appt. Reminder (12/01/2016 06:52 PM) Phone Call - Message Delivered (X=Answering [place]) Encounter Details Care Team Description Date Type Department Adelaida Olivas MD [address] [facility] [address] [place] [address] [phone] 12/03/2016 Hist-Appointmen Aide Orthopaedi c teresa Specialists [address] [facility] [address] [place] [address] Social History Date Tobacco Use Types Packs/Day [...]
--- OUTSIDE RECORDS SUMMARY | 2020-03-12 09:22 | XMS REPORT | Encounter Summary ---
Author Author [facility] Organization [facility] Address Unknown Phone Unavailable Care Team Providers Care Balance Recesser Name Role Phone Ebony Sharp MD PCP Encounter Details Care Team Description Date Type Department Adelaida Olivas MD [address] [facility] [address] [place], [place] [address] 11/24/2016 Hist-Transcript Aide Orthopaedi c ion Encounter Specialists [address] [facility] [address] [place], [place] [address] Social History Date Tobacco Use Types Packs/Day [...] of itself. 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 Plan At [...] 4-6 hours PRN Pain VITAMIN D (ERGOCALCIFEROL) 88855 UNIT CAPS (ERGOCALCIFEROL) 53095 units once a w [place] PERCOCET 7.5-325 MG TABS (OXYCODONE-ACETAMINOPHEN) 1-2 PO [...] used: Print then Give to Patient RxID: [id number] PERCOCET 7.5-325 MG TABS (OXYCODONE-ACETAMINOPHEN) 1-2 PO Q 4-6 Hours PRN Pain #60 x 0 Entered by: Sharona Scott Authorized by: Adelaida Olivas MD Signed by: Sharona Scott on 11/24/2016 Method used: Print then Give to Patient RxID: [id number] SKELAXIN 800 MG TABS (METAXALONE) 1 tablet every 8 hours as needed for pain #90 x 0 Entered by: Sharona Scott Authorized by: Adelaida Olivas MD Signed by: Sharona Scott on 11/24/2016 Method used: Print then Give to Patient RxID: [id number] Vital Signs Ht: 62 in. Wt: 236 [...] CDT Influenza 08/30/2017 08/30/2019 08/30/2019 1:09 PM MINISTER ASSISTANT Influenza - Rule Out 08/30/2019 08/31/2019 09/17/2019 8:17 AM MINISTER ASSISTANT RSV 08/31/2019 documented as of this encounter
--- OUTSIDE RECORDS SUMMARY | 2020-03-12 09:22 | XMS REPORT | Encounter Summary ---
Author Author [facility] Organization [facility] Address Unknown Phone Unavailable Care Team Providers Care Chief Of Internal Medicine Name Role Phone Ebony Sharp MD PCP Reason for Visit * Reason Comments Follow-up recheck right knee hj 11-02 Encounter Details Care Team Description Date Type Department Wyatt Santacruz MD [address] [facility] [address] [place], [place] [address] 11/02/2016 Hist-Appointmen [place] [facility] Specialists [address] [facility] [address] [place], [place] [address] Social History Date Tobacco Use Types Packs/Day [...]
--- OUTSIDE RECORDS SUMMARY | 2020-03-12 09:22 | XMS REPORT | Encounter Summary ---
Author Author [facility] Organization [facility] Address Unknown Phone Unavailable Care Team Providers Care Nuclear Medical Technologist Name Role Phone Ebony Sharp MD PCP Encounter Details Care Team Description Date Type Department Ebony Sharp MD [address] [facility] [address] [place], [place] [id number] 10/30/2016 Documentation [facility] y [facility] [address] [facility] [address] [place] [address] Social History Date Tobacco Use [...]
--- OUTSIDE RECORDS SUMMARY | 2020-03-12 09:22 | XMS REPORT | Encounter Summary ---
Author Author [facility] Organization [facility] Address Unknown Phone Unavailable Care Team Providers Care Solar Project Engineer Name Role Phone Ebony Sharp MD PCP Reason for Visit * Reason Comments Other Encounter Details Care Team Description Date Type Department Ebony Sharp MD [address] [facility] [address] [place] [address] Other 10/14/2016 Refill [facility] y [facility] [address] [facility] [address] [place], [place] [address] Social History Date Tobacco Use Types Packs/Day [...]
--- OUTSIDE RECORDS SUMMARY | 2020-03-12 09:22 | XMS REPORT | Encounter Summary ---
Author Author [facility] Organization [facility] Address Unknown Phone Unavailable Care Team Providers Care Plumber'S Assistant Name Role Phone Ebony Sharp MD PCP Encounter Details Care Team Description Date Type Department Ebony Sharp MD [address] [facility] [address] [place], [place] [address] 10/13/2016 Documentation [facility] y [facility] [address] [facility] [address] [place] [address] Social History Date Tobacco Use [...]
--- OUTSIDE RECORDS SUMMARY | 2020-03-12 09:22 | XMS REPORT | Encounter Summary ---
Author Author [facility] Organization [facility] Address Unknown Phone Unavailable Care Team Providers Care Certified Pediatric Nurse Practitioner Name Role Phone Ebony Sharp MD PCP Reason for Visit * Reason Comments Follow-up NCrt knee prothesis chip, r t leg and swelling and pain/DOI: 10/08/2016/ [facility] at [facility]/ Films[facility] /Insurance M edicare / ok per Selene/ 10/09/2016 cml Encounter Details Care Team Description Date Type Department Wyatt Santacruz MD [address] [facility] [address] [place] [address] [phone] 10/12/2016 Hist-Appointmen Aide Orthopaedi c t Specialists [address] [facility] [address] [place] [address] Social History Date Tobacco Use Types Packs/Day [...]
--- OUTSIDE RECORDS SUMMARY | 2020-03-12 09:22 | XMS REPORT | Encounter Summary ---
Author Author [facility] Organization [facility] Address Unknown Phone Unavailable Care Team Providers Care Animal Researcher Name Role Phone Ebony Sharp MD PCP Reason for Visit * Reason Comments Follow-up Margot/ lft ankle / ok per Al leila/ 10/29/2016 cmlTVX: Appt. Reminder (10/29/2016 06:19 PM) Phone Call - Mess age Delivered (X=Answering Machine) Encounter Details Care Team Description Date Type Department Mendy Carpenter PA-C [address] [place] [address] [phone] 11/02/2016 Hist-Appointfloresita Steeleedi hanny t Specialists [address] [facility] [address] [place] [address] Social History Date Tobacco Use Types Packs/Day [...]
--- OUTSIDE RECORDS SUMMARY | 2020-03-12 09:22 | XMS REPORT | Encounter Summary ---
Author Author [facility] Organization [facility] Address Unknown Phone Unavailable Care Team Providers Care Garment Alteration Examiner Name Role Phone Ebony Sharp MD PCP Reason for Visit * Reason Comments Urinary Tract Infection dysuria, frequency, urine o janie, started a few weeks ago Encounter Details Care Team Description Date Type Department Tonya Hernandez APRN No Forwarding Address UTI symptoms (Primary Dx); Urinary tract infection, site not specified 11/23/2016 Office Visit [facility] [address] [facility] [address] [place], [place] [phone] Social History Date Tobacco Use Types Packs/Day [...] Ketones Urine 11/23/2016 Negative Negative Final Specific [place], UA 11/23/2016 1.025 1.001 - 1.030 Final [...] PM CDT) Isolate 1 >100,000 Cfu/ml (A) [facility] Isolate 1 Escherichia coli (A) [facility] Specimen Urine Antibiotic Method Susceptibility Organism AMPICILLIN >=32: Resistant Escherichia coli CEFAZOLIN. <=4: Sensitive Escherichia coli CEFTRIAXONE <=1: Sensitive Escherichia coli CEFEPIME <=1: Sensitive Escherichia coli MEROPENEM <=0.25: Sensitive Escherichia coli GENTAMICIN <=1: Sensitive Escherichia coli CIPROFLOXACIN. <=0.25: Sensitive Escherichia coli NITROFURANTOIN <=16: Sensitive Escherichia coli SEPTRA/BACTRIM <=20: Sensitive Escherichia coli Performing Organization Address City/State/Zipcode Ph one Number [address] [address] LABORATORIES * POCT urinalysis dipstick (11/23/2016 9:58 AM CDT) Appearance, yellow, cloudy Colorless/Yellow/Da r Urine k Yellow Glucose Urine Negative Negative mg/dL Bilirubin Urine Negative Negative Ketones Urine Negative Negative Specific 1.025 1.001 - 1.030 [place], UA Hemoglobin Moderate (A) Negative Urine PH Urine 5.5 5.0 - 8.0 Protein Urine 100 (A) Negative Qual Urobilinogen Negative Negative EU/dL Urine Nitrite Urine Positive (A) Negative Leukocyte Large (A) Negative Esterase Specimen Urine documented in this encounter Visit Diagnoses Diagnosis UTI symptoms Urinary tract infection, site not speci fied documented in this encounter
--- OUTSIDE RECORDS SUMMARY | 2020-03-12 09:22 | XMS REPORT | Encounter Summary ---
Author Author [facility] Organization [facility] Address Unknown Phone Unavailable Care Team Providers Care Neighborhood Coordinator Name Role Phone Ebony Sharp MD PCP Reason for Visit * Reason Comments Follow-up Margot rt knee(ok'd per bk)/ 11/20/16 ndTVX: Appt. Reminder (12/02/2016 06:32 PM) Phone Call - Message Delivered (X=A nswering Machine) Encounter Details Care Team Description Date Type Department Wyatt Santacruz MD [address] [facility] [address] [place] [address] [phone] 12/04/2016 Hist-Appointmen Aide Orthopaedi c t Specialists [address] [facility] [address] [place] [address] Social History Date Tobacco Use Types Packs/Day [...]
--- OUTSIDE RECORDS SUMMARY | 2020-03-12 09:22 | XMS REPORT | Encounter Summary ---
Author Author [facility] Organization [facility] Address Unknown Phone Unavailable Care Team Providers Care Knot Bumper Name Role Phone Ebony Sharp MD PCP Encounter Details Care Team Description Date Type Department Wyatt Santacruz MD [address] [facility] [address] [place], [place] [id number] 11/02/2016 Hist-Transcript [place] [facility] ion Encounter Specialists [address] [facility] [address] [place], [place] [address] Social History Date Tobacco Use Types Packs/Day [...] 317na PQRS 130na * Signed by Wyatt Santacruz MD on November 04, 2016 at 10:48 [...] CDT Influenza 08/30/2017 08/30/2019 08/30/2019 1:09 PM FACTORY EXPERT Influenza - Rule Out 08/30/2019 08/31/2019 09/17/2019 8:17 AM FACTORY EXPERT RSV 08/31/2019 documented as of this encounter
--- OUTSIDE RECORDS SUMMARY | 2020-03-12 09:22 | XMS REPORT | Encounter Summary ---
Author Author [facility] Organization [facility] Address Unknown Phone Unavailable Care Team Providers Care Heavy Equipment Field Mechanic Name Role Phone Ebony Sharp MD PCP Reason for Visit * Reason Comments Follow-up eldon lft ankle 11/19/16kswTV X: Appt. Reminder (11/20/2016 06:56 PM) Phone Call - Message Delivered (X=Answering [place]) Encounter Details Care Team Description Date Type Department Adelaida Olivas MD [address] [facility] [address] [place] [address] [phone] 11/24/2016 Hist-Appointmen Aide Orthopaedi hanny [place] Specialists [address] [facility] [address] [place] [address] Social History Date Tobacco Use Types Packs/Day [...]
--- OUTSIDE RECORDS SUMMARY | 2020-03-12 09:22 | XMS REPORT | Encounter Summary ---
Author Author [facility] Organization [facility] Address Unknown Phone Unavailable Care Team Providers Care Government Instructor Name Role Phone Ebony Sharp MD PCP Encounter Details Care Team Description Date Type Department Adelaida Olivas MD [address] [facility] [address] [place] [address] 12/02/2016 [facility] [address] [facility] [address] [place], [place] [address] Social History Date Tobacco Use Types Packs/Day [...] Additional Follow-up Details: faxing information over to [employer] Additional Follow-up by: Edith Bautista on December 04, 2016 6:47 AM documented in this encounter Plan of Treatment Not on filedocumented as of this encounter Visit Diagnoses Not on filedocumented in this encounter Additional Health Concerns Last Indicated Resolved Time Infection Onset Date 08/30/2017 04/19/2018 12:13 PM CDT Influenza 08/30/2017 08/30/2019 08/30/2019 1:09 PM CRAB MEAT PROCESSOR Influenza - Rule Out 08/30/2019 08/31/2019 09/17/2019 8:17 AM CRAB MEAT PROCESSOR RSV 08/31/2019 documented as of this encounter
--- OUTSIDE RECORDS SUMMARY | 2020-03-12 09:22 | XMS REPORT | Encounter Summary ---
Author Author [facility] Organization [facility] Address Unknown Phone Unavailable Care Team Providers Care Slip Cover Sewer Name Role Phone Ebony Sharp MD PCP Encounter Details Care Team Description Date Type Department Adelaida Olivas MD [address] [facility] [address] [place] [address] [phone] 12/03/2016 Hist-Other [facility] [address] [place] [address] Social History Date Tobacco Use Types Packs/Day [...] 2:20 PM CDT) Specimen Performing Organization Address City/State/Zipcode Ph one Number [place] documented in this encounter Visit Diagnoses Not on filedocumented in this encounter Additional Health Concerns Last Indicated Resolved Time Infection Onset Date 08/30/2017 04/19/2018 12:13 PM CDT Influenza 08/30/2017 documented as of this encounter
--- OUTSIDE RECORDS SUMMARY | 2020-03-12 09:22 | XMS REPORT | Encounter Summary ---
Author Author [facility] Organization [facility] Address Unknown Phone Unavailable Care Team Providers Care Wedding Planner Name Role Phone Ebony Sharp MD PCP Encounter Details Care Team Description Date Type Department Adelaida Olivas MD [address] [facility] [address] [place], [place] [address] 12/03/2016 Hist-Transcript [place] [facility] ion Encounter Specialists [address] [facility] [address] [place], [place] [address] Social History Date Tobacco Use Types Packs/Day [...] 4-6 hours PRN Pain VITAMIN D (ERGOCALCIFEROL) 50908 UNIT CAPS (ERGOCALCIFEROL) 69995 units once a w [place] PERCOCET 7.5-325 MG TABS (OXYCODONE-ACETAMINOPHEN) 1-2 PO [...] used: Print then Give to Patient RxID: [id number] CYCLOBENZAPRINE HCL 10 MG TABS (CYCLOBENZAPRINE HCL) 1 tablet at bedtime #30 Ta blet x 0 Entered by: Sharona Scott Authorized by: Adelaida Olivas MD Signed by: Sharona Scott on 12/03/2016 Method used: Print then Give to Patient RxID: [id number] Vital Signs Ht: 62 in. Wt: 236 [...] TABS (SIMVASTATIN) as directed VITAMIN D (ERGOCALCIFEROL) 42945 UNIT CAPS (ERGOCALCIFEROL) 21580 units once a w [place] CYCLOBENZAPRINE HCL 10 MG TABS (CYCLOBENZAPRINE HCL) [...] CDT Influenza 08/30/2017 08/30/2019 08/30/2019 1:09 PM SERVICE ESTABLISHMENT ATTENDANT Influenza - Rule Out 08/30/2019 08/31/2019 09/17/2019 8:17 AM SERVICE ESTABLISHMENT ATTENDANT RSV 08/31/2019 documented as of this encounter
--- OUTSIDE RECORDS SUMMARY | 2020-03-12 09:22 | XMS REPORT | Encounter Summary ---
Author Author [facility] Organization [facility] Address Unknown Phone Unavailable Care Team Providers Care Internet Specialist Name Role Phone Ebony Sharp MD PCP Encounter Details Care Team Description Date Type Department Tonya Hernandez APRN No Forwarding Address UTI symptoms 11/23/2016 Lab [facility] Primar y Care - [facility] [place] [address] [facility] [address] [place], [place] [address] Social History Date Tobacco Use Types Packs/Day [...] PM CDT) Isolate 1 >100,000 Cfu/ml (A) [facility] Isolate 1 Escherichia coli (A) [facility] Specimen Urine Antibiotic Method Susceptibility Organism AMPICILLIN >=32: Resistant Escherichia coli CEFAZOLIN. <=4: Sensitive Escherichia coli CEFTRIAXONE <=1: Sensitive Escherichia coli CEFEPIME <=1: Sensitive Escherichia coli MEROPENEM <=0.25: Sensitive Escherichia coli GENTAMICIN <=1: Sensitive Escherichia coli CIPROFLOXACIN. <=0.25: Sensitive Escherichia coli NITROFURANTOIN <=16: Sensitive Escherichia coli SEPTRA/BACTRIM <=20: Sensitive Escherichia coli Performing Organization Address City/State/Zipcode Ph one Number [address] [phone] LABORATORIES documented in this encounter Visit Diagnoses Diagnosis UTI symptoms documented in this encounter
--- OUTSIDE RECORDS SUMMARY | 2020-03-12 09:22 | XMS REPORT | Encounter Summary ---
Author Author [facility] Organization [facility] Address Unknown Phone Unavailable Care Team Providers Care Comber Fixer Name Role Phone Ebony Sharp MD PCP Reason for Referral * MRI/CAT/PET Scan (Routine) Referred By Contact Referred To Contact Status Reason Specialty Diagnoses / Procedures Adelaida Olivas MD [address] [facility] [address] [place] [address] [place] [address] Closed Radiology Diagnoses Osteoarthritis of left ankle P rocedures CT Ankle wo contrast left Reason for Visit * MRI/CAT/PET Scan (Routine) Referred By Contact Referred To Contact Status Reason Specialty Diagnoses / Procedures Adelaida Olivas MD [address] [place] [address] Closed Radiology Diagnoses Osteoarthritis of left ankle P rocedures CT Ankle wo contrast left Encounter Details Care Team Description Date Type Department Adelaida Olivas MD 120 [facility] [address] [place] [id number] [phone] Osteoarthritis of left ankle 12/01/2016 [facility] [address] [place] [address] Social History Date Tobacco Use Types Packs/Day [...] predominant soft tissu e swelling. READING SITE: [facility] Narrative Performed At Patient: ISIAH BENÍTEZ Sex#: F # [id number] Jose#: [id number] Location: [facility] CT Procedure Requested: [id number] CT ANKLE WO CONTRAST LEFT Reason for [...] the central joint space, both anteriorly and poultry breeder iorly. However, there is also persistent joint [...] ISIAH BENÍTEZ Sex#: F # [id number] Jose#: [id number] Location: [facility] CT Procedure Requested: [id number] CT ANKLE WO CONTRAST LEFT Reason for [...] Anterolateral predominant soft tissue swelling. READING SITE: [facility] Address City/State/Zipcode Ph one Number [place] documented in this encounter Visit Diagnoses Diagnosis Osteoarthritis of left ankle documented in this encounter
--- OUTSIDE RECORDS SUMMARY | 2020-03-12 09:22 | XMS REPORT | Encounter Summary ---
Author Author [facility] Organization [facility] Address Unknown Phone Unavailable Care Team Providers Care Director Of Managed Services Name Role Phone Ebony Sharp MD PCP Reason for Referral * MRI/CAT/PET Scan (Routine) Referred By Contact Referred To Contact Status Reason Specialty Diagnoses / Procedures Adelaida Olivas MD [address] [facility] [address] [place] [phone] [address] [place] [address] Closed Radiology Diagnoses Osteoarthritis of left ankle P rocedures CT Ankle wo contrast left Encounter Details Care Team Description Date Type Department Adelaida Olivas MD [address] [facility] [address] [place] [address] [phone] Osteoarthritis of left ankle (Primary Dx ) 11/25/2016 Transcribe [facility] [address] [place] [phone] Social History Date Tobacco Use Types Packs/Day [...] predominant soft tissu e swelling. READING SITE: [facility] Narrative Performed At Patient: ISIAH BENÍTEZ Sex#: F # [id number] Jose#: [id number] Location: [facility] CT Procedure Requested: [id number] CT ANKLE WO CONTRAST LEFT Reason for [...] the central joint space, both anteriorly and children's ministries director iorly. However, there is also persistent joint [...] ISIAH BENÍTEZ Sex#: Paulina # [id number] Jose#: [id number] Location: [facility] CT Procedure Requested: [id number] CT ANKLE WO CONTRAST LEFT Reason for [...] Anterolateral predominant soft tissue swelling. READING SITE: [facility] Address City/State/Zipcode Ph one Number [place] documented in this encounter Visit Diagnoses Diagnosis Osteoarthritis of left ankle documented in this encounter Additional Health Concerns Last Indicated Resolved Time Infection Onset Date 08/30/2017 04/19/2018 12:13 PM CDT Influenza 08/30/2017 08/30/2019 08/30/2019 1:09 PM FOREST FIRE PREVENTION MANAGER Influenza - Rule Out 08/30/2019 08/31/2019 09/17/2019 8:17 AM FOREST FIRE PREVENTION MANAGER RSV 08/31/2019 documented as of this encounter
--- OUTSIDE RECORDS SUMMARY | 2020-03-12 09:22 | XMS REPORT | Encounter Summary ---
Author Author [facility] Organization [facility] Address Unknown Phone Unavailable Care Team Providers Care Decay Control Operator Name Role Phone Ebony Sharp MD PCP Encounter Details Care Team Description Date Type Department Wyatt Santacruz MD [address] [facility] [address] [place] [address] [phone] 11/02/2016 Hist-Other [facility] [address] [place] [address] Social History Date Tobacco Use Types Packs/Day [...] 3:11 PM CDT) Specimen Performing Organization Address City/State/Zipcode Ph one Number [place] documented in this encounter Visit Diagnoses Not on filedocumented in this encounter Additional Health Concerns Last Indicated Resolved Time Infection Onset Date 08/30/2017 04/19/2018 12:13 PM CDT Influenza 08/30/2017 documented as of this encounter
--- OUTSIDE RECORDS SUMMARY | 2020-03-12 09:22 | XMS REPORT | Encounter Summary ---
Author Author [facility] Organization [facility] Address Unknown Phone Unavailable Care Team Providers Care Sand Tester Name Role Phone Ebony Sharp MD PCP Encounter Details Care Team Description Date Type Department Adelaida Olivas MD [address] [facility] [address] [place] [address] 11/25/2016 Hist-Telephone [facility] [address] [facility] [address] [place], [place] [address] Social History Date Tobacco Use Types Packs/Day [...] Follow-up Details: Received prior authorization request from [facility] for Skelaxin 800mg. Started on [employer] Phone # - [phone] [facility] - [phone] Submitted to plan. Follow-up by: Alec Jimenez [...] Influenza 08/30/2017 08/30/2019 08/30/2019 1:09 PM SUPERVISOR RECORDS CHANGE Influenza - Rule Out 08/30/2019 08/31/2019 09/17/2019 8:17 AM SUPERVISOR RECORDS CHANGE RSV 08/31/2019 documented as of this encounter
[2020-03-12 09:23] LABS: CHLORIDE 100 MMOL/L (98-107); POTASSIUM 4.3 MMOL/L (3.6-5.0); SODIUM 137 MMOL/L (135-145)
--- OUTSIDE RECORDS SUMMARY | 2020-03-12 09:23 | XMS REPORT | Encounter Summary ---
Author Author [facility] Organization [facility] Address Unknown Phone Unavailable Care Team Providers Care Informatics Nurse Name Role Phone Ebony Sharp MD PCP Encounter Details Care Team Description Date Type Department Adelaida Olivas MD [address] [facility] [address] [place] [address] 10/09/2016 Hist-Telephone [facility] [address] [facility] [address] [place], [place] [id number] Social History Date Tobacco Use Types Packs/Day [...] Adelaida Olivas MD - 10/09/2016 10:08 AM SCHOOL GUARD Phone Note Call from Patient Summary of [...] Rhodes on October 09, 2016 2:07 PM OL GUARD documented in this encounter Plan of Treatment Not on filedocumented as of this encounter Visit Diagnoses Not on filedocumented in this encounter Additional Health Concerns Last Indicated Resolved Time Infection Onset Date 08/30/2017 04/19/2018 12:13 PM CDT Influenza 08/30/2017 08/30/2019 08/30/2019 1:09 PM SCHOOL GUARD Influenza - Rule Out 08/30/2019 08/31/2019 09/17/2019 8:17 AM SCHOOL GUARD RSV 08/31/2019 documented as of this encounter
--- OUTSIDE RECORDS SUMMARY | 2020-03-12 09:23 | XMS REPORT | Encounter Summary ---
Author Author [facility] Organization [facility] Address Unknown Phone Unavailable Care Team Providers Care Stamp Redemption Clerk Name Role Phone Ebony Sharp MD PCP Encounter Details Care Team Description Date Type Department Adelaida Olivas MD [address] [facility] [address] [place] [address] [phone] 10/08/2016 Hist-Other [facility] [address] [place] [address] Social History Date Tobacco Use Types Packs/Day [...] XR ANKLE LEFT Routine 10/08/2016 12:34 PM WINDOWS SERVER SPECIALIST documented in this encounter Results * XR Ankle left (10/08/2016 12:34 PM WINDOWS SERVER SPECIALIST) Specimen Performing Organization Address City/State/Zipcode Ph one Number [place] documented in this encounter Visit Diagnoses Not on filedocumented in this encounter Additional Health Concerns Last Indicated Resolved Time Infection Onset Date 08/30/2017 04/19/2018 12:13 PM CDT Influenza 08/30/2017 documented as of this encounter
--- OUTSIDE RECORDS SUMMARY | 2020-03-12 09:23 | XMS REPORT | Encounter Summary ---
Author Author [facility] Organization [facility] Address Unknown Phone Unavailable Care Team Providers Care Supervisor Marble Name Role Phone Ebony Sharp MD PCP Reason for Visit * Reason Comments Follow-up eldon Post op per Mendy Encounter Details Care Team Description Date Type Department Mendy Carpenter PA-C [address] [address] [phone] 08/11/2016 Hist[facility]Appointmen [facility] [address] [facility] [facility] [address] [place], [place] [address] Social History Date Tobacco Use Types Packs/Day [...]
--- OUTSIDE RECORDS SUMMARY | 2020-03-12 09:23 | XMS REPORT | Encounter Summary ---
Author Author [facility] Organization [facility] Address Unknown Phone Unavailable Care Team Providers Care Curriculum Writer Name Role Phone Ebony Sharp MD PCP Reason for Visit * Reason Comments Follow-up eldon left ankle/postop[place] [id number]: Appt. Reminder (2016 06:21 PM) Phone Call - Message Delivered (X=A nswering Machine) Encounter Details Care Team Description Date Type Department Adelaida Olivas MD [address] [facility] [address] [place] [address] [phone] 08/18/2016 Hist-Appointmen [facility] [address] [facility] [address] [place] [address] Social History Date Tobacco Use Types Packs/Day [...]
--- OUTSIDE RECORDS SUMMARY | 2020-03-12 09:23 | XMS REPORT | Encounter Summary ---
Author Author [facility] Organization [facility] Address Unknown Phone Unavailable Care Team Providers Care Body Joiner Name Role Phone Ebony Sharp MD PCP Encounter Details Care Team Description Date Type Department Adelaida Olivas MD [address] [facility] [address] [place] [address] [phone] 09/16/2016 Hist-Other [facility] [address] [place] [address] Social History Date Tobacco Use Types Packs/Day [...] XR ANKLE LEFT Routine 09/16/2016 11:56 AM GOVERNMENT RELATIONS ANALYST documented in this encounter Results * XR Ankle left (09/16/2016 11:56 AM GOVERNMENT RELATIONS ANALYST) Specimen Performing Organization Address City/State/Zipcode Ph one Number [place] documented in this encounter Visit Diagnoses Not on filedocumented in this encounter Additional Health Concerns Last Indicated Resolved Time Infection Onset Date 08/30/2017 04/19/2018 12:13 PM CDT Influenza 08/30/2017 documented as of this encounter
--- OUTSIDE RECORDS SUMMARY | 2020-03-12 09:23 | XMS REPORT | Encounter Summary ---
Author Author [facility] Organization [facility] Address Unknown Phone Unavailable Care Team Providers Care Garment Manufacturing Supervisor Name Role Phone Ebony Sharp MD PCP Encounter Details Care Team Description Date Type Department Adelaida Olivas MD [address] [facility] [address] [place] [address] 10/08/2016 [facility] [address] [facility] [address] [place], [place] [address] Social History Date Tobacco Use Types Packs/Day [...] Adelaida Olivas MD - 10/08/2016 2:01 PM ARCHIVES DIRECTOR Phone Note Other Incoming Call Summary of call: Received a call from Eric with [facility]'s pharmacy. He is [place] for [...] the patient. Please call Eric back at [phone]. Call taken by: Malcolm Sam on October 08, 2016 2:03 PM Follow-up for Phone Call Follow-up Details: Per Brendon arambula, ms contin is to replace the oxycontin. Spoke to eric and relayed the message. Follow-up by: Geraldine Neves on October 08, 2016 4:46 PM IVES DIRECTOR documented in this encounter Plan of Treatment Not on filedocumented as of this encounter Visit Diagnoses Not on filedocumented in this encounter Additional Health Concerns Last Indicated Resolved Time Infection Onset Date 08/30/2017 04/19/2018 12:13 PM CDT Influenza 08/30/2017 08/30/2019 08/30/2019 1:09 PM ARCHIVES DIRECTOR Influenza - Rule Out 08/30/2019 08/31/2019 09/17/2019 8:17 AM ARCHIVES DIRECTOR RSV 08/31/2019 documented as of this encounter
--- OUTSIDE RECORDS SUMMARY | 2020-03-12 09:23 | XMS REPORT | Encounter Summary ---
Author Author [facility] Organization [facility] Address Unknown Phone Unavailable Care Team Providers Care Mba Internship Name Role Phone Ebony Sharp MD PCP Encounter Details Care Team Description Date Type Department Adelaida Olivas MD [address] [facility] [address] [place] [address] [phone] 08/18/2016 Hist-Other [facility] [address] [place] [address] Social History Date Tobacco Use Types Packs/Day [...] nosis XR ANKLE Routine 08/18/2016 1:24 PM PROGRAM DEVELOPMENT MANAGER documented in this encounter Results * XR Ankle (08/18/2016 1:24 PM PROGRAM DEVELOPMENT MANAGER) Specimen Performing Organization Address City/State/Zipcode Ph one Number [place] documented in this encounter Visit Diagnoses Not on filedocumented in this encounter Additional Health Concerns Last Indicated Resolved Time Infection Onset Date 08/30/2017 04/19/2018 12:13 PM CDT Influenza 08/30/2017 documented as of this encounter
--- OUTSIDE RECORDS SUMMARY | 2020-03-12 09:23 | XMS REPORT | Encounter Summary ---
Author Author [facility] Organization [facility] Address Unknown Phone Unavailable Care Team Providers Care Machine Shop Instructor Name Role Phone Eobny Sharp MD PCP Encounter Details Care Team Description Date Type Department Adelaida Olivas MD [address] [facility] [address] [place] [address] [phone] 09/02/2016 Hist-Other [facility] [address] [place] [address] Social History Date Tobacco Use Types Packs/Day [...] nosis XR ANKLE Routine 09/02/2016 11:31 AM SYSTEM SOFTWARE DEVELOPER documented in this encounter Results * XR Ankle (09/02/2016 11:31 AM SYSTEM SOFTWARE DEVELOPER) Specimen Performing Organization Address City/State/Zipcode Ph one Number [place] documented in this encounter Visit Diagnoses Not on filedocumented in this encounter Additional Health Concerns Last Indicated Resolved Time Infection Onset Date 08/30/2017 04/19/2018 12:13 PM CDT Influenza 08/30/2017 documented as of this encounter
--- OUTSIDE RECORDS SUMMARY | 2020-03-12 09:23 | XMS REPORT | Encounter Summary ---
Author Author [facility] Organization [facility] Address Unknown Phone Unavailable Care Team Providers Care Architecture Instructor Name Role Phone Ebony Sharp MD PCP Reason for Visit * Reason Comments Other Encounter Details Care Team Description Date Type Department Ebony Sharp MD [address] [facility] [address] [place] [address] Other 09/09/2016 Refill [facility] Primia y [facility] [address] [facility] [address] [place], [place] [address] Social History Date Tobacco Use Types Packs/Day [...]
--- OUTSIDE RECORDS SUMMARY | 2020-03-12 09:23 | XMS REPORT | Encounter Summary ---
Author Author [facility] Organization [facility] Address Unknown Phone Unavailable Care Team Providers Care Straddle Buggy Operator Name Role Phone Ebony Sharp MD PCP Encounter Details Care Team Description Date Type Department Aide, Juarez 08/11/2016 Hist-Transcript [facility] Special[facility] [address] [facility] [address] [place] [address] Social History Date Tobacco Use Types Packs/Day Years Used Quit: 09/14/2009 Former Smoker Smokeless Tobacco: Never Used Drinks/Week oz/Week Comments Alcohol Use No Sex Assigned at Date Recorded Female Industry Job Start Date Occupation Not on file Not on file Not on file Travel End Travel History Travel Start No recent travel history available. documented as of this encounter Progress Notes * Aide, Juarze - 09/10/2016 7:55 AM MACHINE GRINDER Cast Note A well padded short leg [...] CDT Influenza 08/30/2017 08/30/2019 08/30/2019 1:09 PM MACHINE GRINDER Influenza - Rule Out 08/30/2019 08/31/2019 09/17/2019 8:17 AM MACHINE GRINDER RSV 08/31/2019 documented as of this encounter
--- OUTSIDE RECORDS SUMMARY | 2020-03-12 09:23 | XMS REPORT | Encounter Summary ---
Author Author [facility] Organization [facility] Address Unknown Phone Unavailable Care Team Providers Care Chief Internal Auditor Name Role Phone Ebony Sharp MD PCP Encounter Details Care Team Description Date Type Department Adelaida Olivas MD [address] [facility] [address] [place], [place] [address] 08/18/2016 Hist-Transcript [facility] Specialists [address] [facility] [address] [place], [place] [address] Social History Date Tobacco Use Types Packs/Day [...] * Juarez Noble - 08/18/2016 3:21 PM THERAPEUTIC STRATEGY LEAD - History of Present Illness Presents today [...] in the alternate nostril. VITAMIN D (ERGOCALCIFEROL) 24148 UNIT CAPS (ERGOCALCIFEROL) 1 po q weekly [...] used: Print then Give to Patient RxID: [id number] OXYCONTIN 10 MG T12A (OXYCODONE HCL) 1 tab bid #60 x 0 Entered by: Sharona Scott Authorized by: Adelaida Olivas MD Signed by: Sharona Scott on 08/18/2016 Method used: Print then Give to Patient RxID: [id number] Vital Signs Ht: 60 in. Wt: 224 [...] CDT Influenza 08/30/2017 08/30/2019 08/30/2019 1:09 PM THERAPEUTIC STRATEGY LEAD Influenza - Rule Out 08/30/2019 08/31/2019 09/17/2019 8:17 AM THERAPEUTIC STRATEGY LEAD RSV 08/31/2019 documented as of this encounter
--- OUTSIDE RECORDS SUMMARY | 2020-03-12 09:23 | XMS REPORT | Encounter Summary ---
Author Author [facility] Organization [facility] Address Unknown Phone Unavailable Care Team Providers Care Brine Tank Separator Operator Name Role Phone Ebony Sharp MD PCP Reason for Visit * Reason Comments Follow-up eldon left ankle // sm 09/02TVX: Appt. Reminder (09/14/2016 06:56 PM) Phone Call - Responded "Yes" (Y=Answere d - Yes) Encounter Details Care Team Description Date Type Department Adelaida Olivas MD [address] [facility] [address] [place] [address] [phone] 09/16/2016 [facility]Appointmen [facility] [address] [facility] [address] [place] [address] Social History Date Tobacco Use Types Packs/Day [...]
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
--- OUTSIDE RECORDS SUMMARY | 2020-03-12 09:23 | XMS REPORT | Encounter Summary ---
Author Author [facility] Organization [facility] Address Unknown Phone Unavailable Care Team Providers Care Inspector Exhaust Emissions Name Role Phone Ebony Sharp MD PCP Encounter Details Care Team Description Date Type Department [facility] 08/11/2016 Hist-Transcript [place] [facility] ion Encounter Specialists [address] [place], [place] [id number] Social History Date Tobacco Use Types Packs/Day Years Used Quit: 09/14/2009 Former Smoker Smokeless Tobacco: Never Used Drinks/Week oz/Week Comments Alcohol Use No Sex Assigned at Date Recorded Female Industry Job Start Date Occupation Not on file Not on file Not on file Travel End Travel History Travel Start No recent travel history available. documented as of this encounter Progress Notes * [facility] - 08/11/2016 2:07 PM NUCLEAR TECHNOLOGIST - History of Present Illness The patient presents for followup status post left tibiotalar arthrodesis. She reports that she has done poorly since her previous visit. [facility] on Wednesday night when she had [...] in the alternate nostril. VITAMIN D (ERGOCALCIFEROL) 64582 UNIT CAPS (ERGOCALCIFEROL) 1 po q weekly [...] PA-C on 08/11/2016 Method used: [facility] (retail[facility] [address] [place] [address] Ph: [phone] Fax: [phone] RxID: [id number] OXYCONTIN 10 MG T12A (OXYCODONE HCL) 1 tab bid #14 Tablet x 0 Entered by: Mendy Hall PA-C Authorized by: Adelaida Olivas MD Signed by: Mendy Hall PA-C on 08/11/2016 Method used: Print then Give to Patient RxID: [id number] Review of Systems General: Complains of weight [...] Capillary refill not assessed due to nail citizen of [place]. Radiographs: No imaging was obtained at todays [...] Influenza 08/30/2017 08/30/2019 08/30/2019 1:09 PM NUCLEAR TECHNOLOGIST Influenza - Rule Out 08/30/2019 08/31/2019 09/17/2019 8:17 AM NUCLEAR TECHNOLOGIST RSV 08/31/2019 documented as of this encounter
--- OUTSIDE RECORDS SUMMARY | 2020-03-12 09:23 | XMS REPORT | Encounter Summary ---
Author Author [facility] Organization [facility] Address Unknown Phone Unavailable Care Team Providers Care Avionics Shop Supervisor Name Role Phone Ebony Sharp MD PCP Reason for Visit * Reason Comments Follow-up Margot lt ankle/ 10/02/16 ndT VX: Appt. Reminder (10/06/2016 06:59 PM) Phone Call - Message Delivered (X=Answering [place]) Encounter Details Care Team Description Date Type Department Adelaida Olivas MD [address] [facility] [address] [place] [address] [phone] 10/08/2016 Hist-Appointmen Aide Orthopaedi hanny moore Specialists [address] [facility] [address] [place] [address] Social History Date Tobacco Use Types Packs/Day [...]
--- OUTSIDE RECORDS SUMMARY | 2020-03-12 09:23 | XMS REPORT | Encounter Summary ---
Author Author [facility] Organization [facility] Address Unknown Phone Unavailable Care Team Providers Care Instrument Repair Supervisor Name Role Phone Ebony Sharp MD PCP Encounter Details Care Team Description Date Type Department Adelaida Olivas MD [address] [facility] [address] [place] [address] 08/19/2016 Hist-Telephone [place] [facility] [address] [facility] [address] [place], [place] [id number] Social History Date Tobacco Use Types Packs/Day [...] Adelaida Olivas MD - 08/19/2016 9:49 AM WEB SEARCH EVALUATOR Follow-up for Phone Call Follow-up Details: Prior Authorization submitted through [employer] for [facility] lobenzaprine 5mg. [facility] pharmacy [phone]. . Follow-up by: Edgar Muller on August 19, 2016 9:51 AM Additional Follow-up for Phone Call Additional Follow-up Details: I checked the prior authorization form on [employer] and it states "NO PA REQUIRED" and this is only needed for patient's 65 years of age or older. Message relayed to pharmacist and she states that this went through insurance an d was picked up by the patient on 08/24/16. Additional Follow-up by: Karin Saenz on September 07, 2016 1:01 PM SEARCH EVALUATOR documented in this encounter Plan of Treatment Not on filedocumented as of this encounter Visit Diagnoses Not on filedocumented in this encounter Additional Health Concerns Last Indicated Resolved Time Infection Onset Date 08/30/2017 04/19/2018 12:13 PM CDT Influenza 08/30/2017 08/30/2019 08/30/2019 1:09 PM WEB SEARCH EVALUATOR Influenza - Rule Out 08/30/2019 08/31/2019 09/17/2019 8:17 AM WEB SEARCH EVALUATOR RSV 08/31/2019 documented as of this encounter
--- OUTSIDE RECORDS SUMMARY | 2020-03-12 09:23 | XMS REPORT | Encounter Summary ---
Author Author [facility] Organization [facility] Address Unknown Phone Unavailable Care Team Providers Care High School Agriculture Teacher Name Role Phone Ebony Sharp MD PCP Encounter Details Care Team Description Date Type Department Adelaida Olivas MD [address] [facility] [address] [place], [place] [id number] 10/08/2016 Hist-Transcript Aide Orthopaedi c ion Encounter Specialists [address] [facility] [address] [place], [place] [id number] Social History Date Tobacco Use Types Packs/Day [...] * Juarez Noble - 10/08/2016 12:30 PM CHUTE BOSS - History of Present Illness Presents today [...] future. We will place her on [place] [address] ntin. She will continue her guarded weightbearing [...] in the alternate nostril. VITAMIN D (ERGOCALCIFEROL) 11555 UNIT CAPS (ERGOCALCIFEROL) 1 po q weekly [...] used: Print then Give to Patient RxID: [id number] Vital Signs BMI: 43.32 She was encourage [...] CDT Influenza 08/30/2017 08/30/2019 08/30/2019 1:09 PM CHUTE BOSS Influenza - Rule Out 08/30/2019 08/31/2019 09/17/2019 8:17 AM CHUTE BOSS RSV 08/31/2019 documented as of this encounter
--- OUTSIDE RECORDS SUMMARY | 2020-03-12 09:23 | XMS REPORT | Encounter Summary ---
Author Author [facility] Organization [facility] Address Unknown Phone Unavailable Care Team Providers Care Honing Job Setter Name Role Phone Ebony Sharp MD PCP Encounter Details Care Team Description Date Type Department Ebony Sharp MD [address] [facility] [address] [place] [address] 09/09/2016 [facility] [address] [facility] [address] [place] [address] Social History Date Tobacco Use [...]
--- OUTSIDE RECORDS SUMMARY | 2020-03-12 09:23 | XMS REPORT | Encounter Summary ---
Author Author [facility] Organization [facility] Address Unknown Phone Unavailable Care Team Providers Care Turbine Operator Name Role Phone Ebony Sharp MD PCP Encounter Details Care Team Description Date Type Department [place], Historical 08/13/2016 Hist-Telephone [place] [facility] Specialists [address] [place], [place] [phone] Social History Date Tobacco Use Types Packs/Day [...] encounter Miscellaneous Notes * Clinic Note - [facility] - 08/13/2016 2:10 PM WICK TENDER Follow-up for Phone Call Follow-up Details: Prior authorization submitted for Oxycontin 10mg tablets to [employer] phone number [phone], Follow-up by: Karin Saenz on August 13, 2016 2:11 PM Additional Follow-up for Phone Call Additional Follow-up Details: Received paperwork from [employer]. Completed an d faxed back. Additional Follow-up [...] CDT Influenza 08/30/2017 08/30/2019 08/30/2019 1:09 PM WICK TENDER Influenza - Rule Out 08/30/2019 08/31/2019 09/17/2019 8:17 AM WICK TENDER RSV 08/31/2019 documented as of this encounter
--- OUTSIDE RECORDS SUMMARY | 2020-03-12 09:23 | XMS REPORT | Encounter Summary ---
Author Author [facility] Organization [facility] Address Unknown Phone Unavailable Care Team Providers Care Remote Sensing Research Scientist Name Role Phone Ebony Sharp MD PCP Encounter Details Care Team Description Date Type Department Adelaida Olivas MD [address] [facility] [address] [place], [place] [address] 09/02/2016 Hist-Transcript [place] [facility] ion Encounter Specialists [address] [facility] [address] [place], [place] [address] Social History Date Tobacco Use Types Packs/Day [...] Adelaida Olivas MD - 09/04/2016 11:32 AM GENERAL SALES MANAGER Cast Note A well padded short leg non-weight bearing fiberglass cast was applied. They were informed of precautions, to keep this clean and dry. They are to call the office if there is any incident or issues that arise. RAL SALES MANAGER documented in this encounter Plan of Treatment Not on filedocumented as of this encounter Visit Diagnoses Not on filedocumented in this encounter Additional Health Concerns Last Indicated Resolved Time Infection Onset Date 08/30/2017 04/19/2018 12:13 PM CDT Influenza 08/30/2017 08/30/2019 08/30/2019 1:09 PM GENERAL SALES MANAGER Influenza - Rule Out 08/30/2019 08/31/2019 09/17/2019 8:17 AM GENERAL SALES MANAGER RSV 08/31/2019 documented as of this encounter
--- OUTSIDE RECORDS SUMMARY | 2020-03-12 09:23 | XMS REPORT | Encounter Summary ---
Author Author [facility] Organization [facility] Address Unknown Phone Unavailable Care Team Providers Care Soft Metals Hand Engraver Name Role Phone Ebony Sharp MD PCP Reason for Visit * Reason Comments Follow-up el[facility] lft ankle [id number] [facility] TVX: Appt. Reminder (08/31/2016 07:22 PM) Phone Call - Message Delivered (X=Answering Ever hill) Encounter Details Care Team Description Date Type Department Adelaida Olivas MD [address] [facility] [address] [place] [address] [phone] 09/02/2016 Hist-Appointmen Aide Orthopaedi c [place] Specialists [address] [facility] [address] [place] [address] Social History Date Tobacco Use Types Packs/Day [...]
--- OUTSIDE RECORDS SUMMARY | 2020-03-12 09:23 | XMS REPORT | Encounter Summary ---
Author Author [facility] Organization [facility] Address Unknown Phone Unavailable Care Team Providers Care Agriculture Research Director Name Role Phone Ebony Sharp MD PCP Encounter Details Care Team Description Date Type Department Adelaida Olivas MD [address] [facility] [address] [place], [place] [address] 09/16/2016 Hist-Transcript [facility] Orthopaedi c ion Encounter Specialists [address] [facility] [address] [place], [place] [address] Social History Date Tobacco Use Types Packs/Day [...] * Juarez Noble - 09/16/2016 12:05 PM RAILROAD HAND - History of Present Illness Presents [...] in the alternate nostril. VITAMIN D (ERGOCALCIFEROL) 27812 UNIT CAPS (ERGOCALCIFEROL) 1 po q weekly [...] CDT Influenza 08/30/2017 08/30/2019 08/30/2019 1:09 PM RAILROAD HAND Influenza - Rule Out 08/30/2019 08/31/2019 09/17/2019 8:17 AM RAILROAD HAND RSV 08/31/2019 documented as of this encounter
--- OUTSIDE RECORDS SUMMARY | 2020-03-12 09:23 | XMS REPORT | Encounter Summary ---
Author Author [facility] Organization [facility] Address Unknown Phone Unavailable Care Team Providers Care Manager Combination Name Role Phone Ebony Sharp MD PCP Encounter Details Care Team Description Date Type Department [place], Historical 08/13/2016 Hist-Telephone [place] [facility] Specialists [address] [facility] [address] [place], [place] [address] Social History Date Tobacco Use Types Packs/Day [...] encounter Miscellaneous Notes * Clinic Note - [facility] - 08/13/2016 2:52 PM ELECTRONIC SYSTEMS TECHNICIAN Phone Note Call from Pharmacy Caller: [facility] Call For: Mendy Hall Summary of call: Patient allergic to sulfa. Need a different antibiotic. Per Nadia dominguez - change to Augmentin 875 mg 1 tab BID #20. New script sent to pharmacy. Call taken by: Alec Jimenez on August 13, 2016 2:53 PM Prescriptions: AUGMENTIN 875-125 MG TABS (AMOXICILLIN-POT CLAVULANATE) 1 tab bid #20[Tablet] x 0 Entered by: Alec Jimenez Authorized by: Mendy Hall PA-C Signed by: Alec Jimenez on 08/13/2016 Method used: Electronically to [facility]* (retail) [address] [place] [address] Ph: [phone] Fax: [phone] RxID: [id number] documented in this encounter Plan of Treatment Not on filedocumented as of this encounter Visit Diagnoses Not on filedocumented in this encounter Additional Health Concerns Last Indicated Resolved Time Infection Onset Date 08/30/2017 04/19/2018 12:13 PM CDT Influenza 08/30/2017 08/30/2019 08/30/2019 1:09 PM ELECTRONIC SYSTEMS TECHNICIAN Influenza - Rule Out 08/30/2019 08/31/2019 09/17/2019 8:17 AM ELECTRONIC SYSTEMS TECHNICIAN RSV 08/31/2019 documented as of this encounter
--- OUTSIDE RECORDS SUMMARY | 2020-03-12 09:23 | XMS REPORT | Encounter Summary ---
Author Author [facility] Organization [facility] Address Unknown Phone Unavailable Care Team Providers Care Automatic Fabric Cutter Name Role Phone Ebony Sharp MD PCP Encounter Details Care Team Description Date Type Department Adelaida Olivas MD [address] [facility] [address] [place], [place] [address] 08/18/2016 Hist-Transcript [place] [facility]opa[facility] ion Encounter Specialists [address] [facility] [address] [place], [place] [address] Social History Date Tobacco Use Types Packs/Day [...] Adelaida Olivas MD - 08/27/2016 8:59 AM ELEMENTARY SUPERVISOR Cast Note A well padded short leg non-weight bearing fiberglass cast was applied. They were informed of precautions, to keep this clean and dry. They are to call the office if there is any incident or issues that arise. ENTARY SUPERVISOR documented in this encounter Plan of Treatment Not on filedocumented as of this encounter Visit Diagnoses Not on filedocumented in this encounter Additional Health Concerns Last Indicated Resolved Time Infection Onset Date 08/30/2017 04/19/2018 12:13 PM CDT Influenza 08/30/2017 08/30/2019 08/30/2019 1:09 PM ELEMENTARY SUPERVISOR Influenza - Rule Out 08/30/2019 08/31/2019 09/17/2019 8:17 AM ELEMENTARY SUPERVISOR RSV 08/31/2019 documented as of this encounter
--- OUTSIDE RECORDS SUMMARY | 2020-03-12 09:23 | XMS REPORT | Encounter Summary ---
Author Author [facility] Organization [facility] Address Unknown Phone Unavailable Care Team Providers Care Presidential Support Specialist Name Role Phone Ebony Sharp MD PCP Encounter Details Care Team Description Date Type Department Adelaida Olivas MD [address] [facility] [address] [place], [place] [address] 09/02/2016 Hist-Transcript [place] [facility] ion Encounter Specialists [address] [facility] [address] [place], [place] [address] Social History Date Tobacco Use Types Packs/Day [...] Adelaida Olivas MD - 09/02/2016 11:25 AM OPERATIONS LEADER - History of Present Illness Presents today [...] in the alternate nostril. VITAMIN D (ERGOCALCIFEROL) 71182 UNIT CAPS (ERGOCALCIFEROL) 1 po q weekly [...] used: Print then Give to Patient RxID: [id number] OXYCONTIN 10 MG T12A (OXYCODONE HCL) 1 tab bid #60 x 0 Entered by: Sharona Scott Authorized by: Adelaida Olivas MD Signed by: Sharona Scott on 09/02/2016 Method used: Print then Give to Patient RxID: [id number] CYCLOBENZAPRINE HCL 5 MG TABS (CYCLOBENZAPRINE HCL) One, PO, at bedtime as neede d for muscle spasm #60 x 0 Entered by: Sharona Scott Authorized by: Adelaida Olivas MD Signed by: Sharona Scott on 09/02/2016 Method used: Print then Give to Patient RxID: [id number] Review of Systems General: Complains of sweats. [...] (x-rays not available in the office today): ATIONS LEADER documented in this encounter Plan of Treatment Not on filedocumented as of this encounter Visit Diagnoses Not on filedocumented in this encounter Additional Health Concerns Last Indicated Resolved Time Infection Onset Date 08/30/2017 04/19/2018 12:13 PM CDT Influenza 08/30/2017 08/30/2019 08/30/2019 1:09 PM OPERATIONS LEADER Influenza - Rule Out 08/30/2019 08/31/2019 09/17/2019 8:17 AM OPERATIONS LEADER RSV 08/31/2019 documented as of this encounter
--- OUTSIDE RECORDS SUMMARY | 2020-03-12 09:23 | XMS REPORT | Encounter Summary ---
Author Author [facility] Organization [facility] Address Unknown Phone Unavailable Care Team Providers Care Donkey Ride Operator Name Role Phone Ebony Sharp MD PCP Encounter Details Care Team Description Date Type Department ProviderJuarez MD [address] [place] [address] 08/19/2016 Orders Only [facility] [address] [facility] [address] [place] [address] Social History Date Tobacco Use Types Packs/Day [...]
[2020-03-12 09:24] LABS: CALCIUM 9.1 MG/DL (8.5-10.1)
--- OUTSIDE RECORDS SUMMARY | 2020-03-12 09:24 | XMS REPORT | Encounter Summary ---
Author Author [facility] Organization [facility] Address Unknown Phone Unavailable Care Team Providers Care Securities Consultant Name Role Phone Ebony Sharp MD PCP Encounter Details Care Team Description Date Type Department [place], [facility] 08/07/2016 Hist-Transcript [place] [facility] ion Encounter Specialists [address] [address] [place], [place] [address] Social History Date Tobacco Use Types Packs/Day [...] encounter Miscellaneous Notes * Operative Note - [place] [facility] - 08/11/2016 12:02 PM CONSULTANT LUXURY AND AUTO. VICE PRESIDENT JAGUAR BRAND (EX ) documented in this encounter Plan of Treatment Not on filedocumented as of this encounter Visit Diagnoses Not on filedocumented in this encounter Additional Health Concerns Last Indicated Resolved Time Infection Onset Date 08/30/2017 04/19/2018 12:13 PM CDT Influenza 08/30/2017 08/30/2019 08/30/2019 1:09 PM CONSULTANT LUXURY AND AUTO. VICE PRESIDENT J[employer]AR [employer]AND (EX ) Influenza - Rule Out 08/30/2019 08/31/2019 09/17/2019 8:17 AM CONSULTANT LUXURY AND AUTO. VICE PRESIDENT J[employer]UAR [employer]AND (EX ) RSV 08/31/2019 documented as of this encounter
--- OUTSIDE RECORDS SUMMARY | 2020-03-12 09:24 | XMS REPORT | Encounter Summary ---
Author Author [facility] Organization [facility] Address Unknown Phone Unavailable Care Team Providers Care Radiator Mechanic Name Role Phone Ebony Sharp MD PCP Encounter Details Care Team Description Date Type Department Adelaida Olivas MD [address] [facility] [address] [place] [address] 08/07/2016 [facility] [address] [facility] [address] [place], [place] [phone] Social History Date Tobacco Use Types Packs/Day [...] Adelaida Olivas MD - 08/07/2016 2:27 PM BRANCH SPECIALIST Phone Note Call from Pharmacy Summary of call: kena [phone], patient getting [place] / from Dr Arnav rosas with [facility] [phone], 1 tab 5 times daily. Along with [...] the message. Please call TK back at [phone] ext: [phone] Additional Follow-up by: Daphne Roa [...] a week to be processed through [facility] and she understands. She will follow up on Wednesday as scheduled. Additional Follow-up by: Karin Saenz on August 13, 2016 1:57 PM CH SPECIALIST documented in this encounter Plan of Treatment Not on filedocumented as of this encounter Visit Diagnoses Not on filedocumented in this encounter Additional Health Concerns Last Indicated Resolved Time Infection Onset Date 08/30/2017 04/19/2018 12:13 PM CDT Influenza 08/30/2017 08/30/2019 08/30/2019 1:09 PM BRANCH SPECIALIST Influenza - Rule Out 08/30/2019 08/31/2019 09/17/2019 8:17 AM BRANCH SPECIALIST RSV 08/31/2019 documented as of this encounter
--- OUTSIDE RECORDS SUMMARY | 2020-03-12 09:24 | XMS REPORT | Encounter Summary ---
Author Author [facility] Organization [facility] Address Unknown Phone Unavailable Care Team Providers Care Policy Writer Name Role Phone Ebony Sharp MD PCP Encounter Details Care Team Description Date Type Department Adelaida Olivas MD [address] [facility] [address] [place] [address] Other specified pre-operative examinatio n (Primary Dx) 07/23/2016 Transcribe [facility] [phone] Social History Date Tobacco Use Types Packs/Day [...] filedocumented as of this encounter Results * Prothrombin Time/INR (07/23/2016 4:29 PM CROOK OPERATOR) Protime 12.8 11.4 - 15.0 sec [facility] INR 1.0 0.8 - 1.2 [facility] Specimen Blood Performing Organization Address City/State/Zipcode Ph one Number [facility] [address] [facility] [place] [address] [facility] [address] [place] [facility] [place] [address], [place] [phone] [facility] * APTT (07/23/2016 4:29 PM CROOK OPERATOR) APTT 25 22 - 34 sec [facility] Specimen Blood Performing Organization Address City/State/[facility] Ph one Number [facility] [address] [place] [address] [facility] [address] [place] [address], [place] [phone] [facility] * Complete Blood Count (07/23/2016 4:29 PM CROOK OPERATOR) WBC 8.75 4.00 - 11.00 TH/uL [facility] [...] 9.8 9.4 - 12.3 fL [facility] Specimen Blood Performing Organization Address City/State/Zipcode Ph one Number [facility] [address] [place] [address] [facility] [address] [place] [place] [address], [place] [phone] [facility] * Basic Metabolic Panel (07/23/2016 4:29 PM CROOK OPERATOR) Sodium 145 133 - 147 MEQ/L [facility] Potassium 3.7 3.5 - 5.3 MEQ/L [facility] Chloride 102 96 - 112 MEQ/L [facility] Carbon Dioxide 27 20 - 32 MEQ/L [facility] Anion Gap 16 5 - 17 [facility] Calcium 9.2 8.4 - 10.5 mg/dL [facility] Glucose 210 (H) 70 - 100 mg/dL [facility] Blood Urea 13 7 - 26 mg/dL [facility] N[facility] Creatinine 0.8 0.4 - 1.1 mg/dL [facility] eGFR Female AA 87 [...] [facility] [address] [place] [facility] [place] [address] [facility] [address] [employer] [place] [facility] [place] [address], [facility] documented in this encounter Visit Diagnoses Diagnosis Other specified pre-operative examinati on documented in this encounter Additional Health Concerns Last Indicated Resolved Time Infection Onset Date 08/30/2017 04/19/2018 12:13 PM CDT Influenza 08/30/2017 08/30/2019 08/30/2019 1:09 PM CROOK OPERATOR Influenza - Rule Out 08/30/2019 08/31/2019 09/17/2019 8:17 AM CROOK OPERATOR RSV 08/31/2019 documented as of this encounter
--- OUTSIDE RECORDS SUMMARY | 2020-03-12 09:24 | XMS REPORT | Encounter Summary ---
Author Author [facility] Organization [facility] Address Unknown Phone Unavailable Care Team Providers Care Bleach Plant Operator Name Role Phone Ebony Sharp MD PCP Reason for Visit * Reason Comments Other Encounter Details Care Team Description Date Type Department Ebony Sharp MD [address] [facility] [address] [place] [address] Other 07/16/2016 Refill [facility] y [facility] [address] [facility] [address] [place], [place] [address] Social History Date Tobacco Use Types Packs/Day [...]
--- OUTSIDE RECORDS SUMMARY | 2020-03-12 09:24 | XMS REPORT | Encounter Summary ---
Author Author [facility] Organization [facility] Address Unknown Phone Unavailable Care Team Providers Care Music Executive Name Role Phone Ebony Sharp MD PCP Encounter Details Care Team Description Date Type Department Adelaida Olivas MD [address] [facility] [address] [place] [address] 08/07/2016 Hist-[facility]cript [facility] En[facility] Specialists [address] [facility] [address] [place], [place] [id number] Social History Date Tobacco Use Types Packs/Day [...] Adelaida Olivas MD - 08/19/2016 7:38 AM ASSISTANT STORE MANAGER OPERATIONS Operative Report Left Ankle Imported By: Mindi Bautista 08/19/2016 7:38:03 AM External Attachment: Type: Image Comment: External Document STANT STORE MANAGER OPERATIONS documented in this encounter Plan of Treatment Not on filedocumented as of this encounter Visit Diagnoses Not on filedocumented in this encounter Additional Health Concerns Last Indicated Resolved Time Infection Onset Date 08/30/2017 04/19/2018 12:13 PM CDT Influenza 08/30/2017 08/30/2019 08/30/2019 1:09 PM ASSISTANT STORE MANAGER OPERATIONS Influenza - Rule Out 08/30/2019 08/31/2019 09/17/2019 8:17 AM ASSISTANT STORE MANAGER OPERATIONS RSV 08/31/2019 documented as of this encounter
--- OUTSIDE RECORDS SUMMARY | 2020-03-12 09:24 | XMS REPORT | Encounter Summary ---
Author Author [facility] Organization [facility] Address Unknown Phone Unavailable Care Team Providers Care Jigsaw Operator Name Role Phone Ebony Sharp MD PCP Reason for Referral * Diagnostic Imaging (Routine) Referred By Contact Referred To Contact Status Reason Specialty Diagnoses / Procedures Mendy Carpenter PA-C [address] [address] Closed Diagnoses Left ankle pain P rocedures US Venous Duplex Lower Extremity left Reason for Visit * Diagnostic Imaging (Routine) Referred By Contact Referred To Contact Status Reason Specialty Diagnoses / Procedures Mendy Carpenter PA-C [address] [address] Closed Diagnoses Left ankle pain P rocedures US Venous Duplex Lower Extremity left Encounter Details Care Team Description Date Type Department Mendy Carpenter PA-C [address] [address] [phone] Left ankle pain 08/11/2016 [facility] [address] [place], [place] [id number] Social History Date Tobacco Use Types Packs/Day [...] an kle pain EXTREMITY LEFT 3:39 PM PHOTOGRAPHIC PROCESSOR documented in this encounter Results * US Venous Duplex Lower Extremity left (08/11/2016 3:39 PM PHOTOGRAPHIC PROCESSOR) Specimen Impressions Performed At No left lower extremity DVT. LEVI READING SITE: [facility] Narrative Performed At Patient: ISIAH PATTEN Sex#: F # [id number] Jose#: [id number] Location: [facility] Procedure Requested: [id number] US VENOU S DUPLEX LOWER EXTREMITY LEFT [...] Rad Results In - 08/11/2016 3:51 PM PHOTOGRAPHIC PROCESSOR Patient: ISIAH PATTEN Sex#: F # [id number] Jose#: [id number] Location: [facility] Procedure Requested: [id number] US VENOUS DUPLEX LOWER EXTREMITY LEFT Reason [...] No left lower extremity DVT. READING SITE: [facility] Address City/State/Zipcode Ph one Number [facility] documented in this encounter Visit Diagnoses Diagnosis Left ankle pain Pain in joint, ankle and foot documented in this encounter
--- OUTSIDE RECORDS SUMMARY | 2020-03-12 09:24 | XMS REPORT | Encounter Summary ---
Author Author [facility] Organization [facility] Address Unknown Phone Unavailable Care Team Providers Care Gear Changer Name Role Phone Ebony Sharp MD PCP [...] Type Department Walker Funez MD [address] [facility] [address] [place] [address] [phone] Draining postoperative wound, initial en counter (Primary Dx); Acute bleeding; Chronic obstructive pulmonary disease, unspecified COPD type ([facility]); Essential hypertension; SASHA on CPAP; Type 2 diabetes mellitus without complication, with long-term current use of insulin ([facility]) 08/07/2016 Emergency [facility] 08/08/2016 [address] [place], [place] [id number] Social History Date Tobacco Use Types Packs/Day [...] Comments Vital Sign 124/75 08/08/2016 11:57 AM EXPERIMENTAL MECHANIC OUTBOARD MOTORS Blood Pressure 80 08/08/2016 11:57 AM EXPERIMENTAL MECHANIC OUTBOARD MOTORS Pulse 36.8 C (98.2 F) 08/08/2016 11:57 AM EXPERIMENTAL MECHANIC OUTBOARD MOTORS Temperature 18 08/08/2016 11:57 AM EXPERIMENTAL MECHANIC OUTBOARD MOTORS Respiratory Rate 93% 08/08/2016 11:57 AM EXPERIMENTAL MECHANIC OUTBOARD MOTORS Oxygen Saturation - - Inhaled Oxygen Concentration 108.6 kg (239 lb 6.7 oz) 08/07/2016 8:19 PM EXPERIMENTAL MECHANIC OUTBOARD MOTORS Weight 157.5 cm (5' 2") 08/07/2016 8:19 PM EXPERIMENTAL MECHANIC OUTBOARD MOTORS Height 43.79 08/07/2016 8:19 PM EXPERIMENTAL MECHANIC OUTBOARD MOTORS Body Mass Index documented in this encounter Discharge Summaries * Walker Funez MD - 08/08/2016 12:15 PM EXPERIMENTAL MECHANIC OUTBOARD MOTORS [facility] Orthopedic Discharge Summary Patient Name: Caren Patten [...] are duplicate medications prescribed to the patient RIMENTAL MECHANIC OUTBOARD MOTORS documented in this encounter Discharge Instructions * Attachments The following attachments cannot be sent through Care Everywhere.* DIABETES, FOOT CARE PROGRAM, YOUR (HONDURAN) * POST OP WOUND CHECK, GENERAL (HONDURAN) documented in this encounter Medications at Time [...] as of this encounter Progress Notes * Wlaker Funez MD - 08/08/2016 12:11 PM EXPERIMENTAL MECHANIC OUTBOARD MOTORS Patient doing well this AM. Pain improved and tolerable. She has kept elevated. No more bleeding through splint. Answered all questions. RIMENTAL MECHANIC OUTBOARD MOTORS documented in this encounter H&P Notes * Walker Funez MD - 08/07/2016 6:57 PM EXPERIMENTAL MECHANIC OUTBOARD MOTORS [facility] Consult Note [phone] 08/07/2016 Patient Identification Patient's Name: Caren Ernestina Patten : 1950 Admit Date: 08/07/2016 Attending Provider: No att. providers found Patient was seen and evaluated by [facility] at the reques t of No att. providers found for orthopedic needs. Primary Care Physician: Ebony Sharp MD Admitting Diagnosis: There are no admission diagnoses documented for this encoun ter. History of Present Illness Caren Patten is a 65 y.o. female 65-year-old female presents for right ankle bl eeding. She states that she had [facility]. She states she was discharged to home [...] D/C tomorrow. Walker Funez 08/07/2016 6:58 PM RIMENTAL MECHANIC OUTBOARD MOTORS documented in this encounter Consult Notes * Lilibeth Redmond RN SUPERVISOR POLE YARD - 08/08/2016 9:38 AM EXPERIMENTAL MECHANIC OUTBOARD MOTORS Associated Order(s): IP CONSULT TO HOSPITALIST [facility] MID WIFE Hospitalist - Consult History & Physical Patient [...] are 120-130s. [facility] She denies any hypoglycemic episodes. She is [...] inue to follow along. Lilibeth Redmond RN SUPERVISOR POLE YARD [facility] Please page through physician paging. . RIMENTAL MECHANIC OUTBOARD MOTORS Associated attestation - Omar Elilott DO - 08/18/2016 2:14 PM EXPERIMENTAL MECHANIC OUTBOARD MOTORS Attending Physician Attestation: This note was reviewed for chart compliance, but I have not seen or discussed th is case with the nurse practitioner. Omar Elliott DO [facility] [phone] documented in this encounter ED Notes * Neena Diaz RN - 08/07/2016 6:30 PM EXPERIMENTAL MECHANIC OUTBOARD MOTORS Splint applied per orders. Skin warm and pink. Pt denies any numbness or tinglin g. RIMENTAL MECHANIC OUTBOARD MOTORS * Manisha Poole APRN - 08/07/2016 5:30 PM EXPERIMENTAL MECHANIC OUTBOARD MOTORS 08/07/2016 [facility] History Chief Complaint Patient presents with Post-op Problem reports surgical fusion on left foot done today around 0930. went home around 1530 and noticed there was bleeding on dressing. has not called surgeon, dr lucretia david reports pain 2/10, sore. HPI Comments: 65-year-old female presents for right ankle bleeding. She states that she had surgery at outpatient [facility] [place] at [facility]. She states she was discharged to home [...] and splint the ankle as previously splinted EYELET CUTTER. [id number] spoke with the patient regarding redressing [...] to admit the pt to the hospital, [facility] due to pts hx of COPD , DM, and htn. Pt given 2 percocets in ed for pain. Pt had been dc'd to home with rx for percocet. I have reviewed all of the labs and radiology studies. ED Course ED Clinical Impression 1. Draining postoperative wound, initial encounter 2. Acute bleeding 3. Chronic obstructive pulmonary disease, unspecified COPD type ([facility]) 4. Essential hypertension 5. SASHA on CPAP 6. Type 2 diabetes mellitus without complication, with long-term current use of insulin ([facility]) Manisha Poole, SUPERVISOR POLE YARD 08/07/16 192 Manisha Ever Poole, SUPERVISOR POLE YARD 08/10/16 [id number] RIMENTAL MECHANIC OUTBOARD MOTORS documented in this encounter Miscellaneous Notes * Assessment & Plan Note - Lilibeth Redmond RN SUPERVISOR POLE YARD - 08/08/2016 11:55 AM EXPERIMENTAL MECHANIC OUTBOARD MOTORS Associated Problem(s): Acute bleeding (Resolved 01/11/2019) Bleeding after left ankle surgery yesterday Splint was reapplied in ED yesterday Stable, dressings D/I Hgb 11.6, VSS Ortho consulted, per note yesterday anticipated discharge today RIMENTAL MECHANIC OUTBOARD MOTORS * Assessment & Plan Note - Lilibeth Redmond RN SUPERVISOR POLE YARD - 08/08/2016 11:53 AM EXPERIMENTAL MECHANIC OUTBOARD MOTORS Associated Problem(s): COPD (chronic obstructive pulmonary disease) (HCC) Not in acute exacerbation Continue Breo and prn albuterol Continue chronic 2L O2 RIMENTAL MECHANIC OUTBOARD MOTORS * Assessment & Plan Note - Lilibeth Redmond RN SUPERVISOR POLE YARD - 08/08/2016 11:52 AM EXPERIMENTAL MECHANIC OUTBOARD MOTORS Associated Problem(s): Essential hypertension Normotensive Continue BB and Norvasc RIMENTAL MECHANIC OUTBOARD MOTORS * Assessment & Plan Note - Lilibeth Redmond RN SUPERVISOR POLE YARD - 08/08/2016 11:52 AM EXPERIMENTAL MECHANIC OUTBOARD MOTORS Associated Problem(s): SASHA on CPAP Compliant with CPAP Continue RIMENTAL MECHANIC OUTBOARD MOTORS * Assessment & Plan Note - Lilibeth Redmond RN SUPERVISOR POLE YARD - 08/08/2016 11:51 AM EXPERIMENTAL MECHANIC OUTBOARD MOTORS Associated Problem(s): Type 2 diabetes mellitus without complication (HCC) (Reso lved 02/04/2017) A1c 8.6% this month Continue Lantus at HS AC/HS accu checks CC, SH diet RIMENTAL MECHANIC OUTBOARD MOTORS * Plan of Care - Abida Ndiaye RN - 08/08/2016 9:03 AM EXPERIMENTAL MECHANIC OUTBOARD MOTORS Problem: Risk for Falls Goal: Patient will not fall during their Inpatient stay Outcome: Adequate for Discharge Problem: Acute Pain Goal: Pain controlled to patients/families desired goal Outcome: Adequate for Discharge Problem: Bleeding Precautions Goal: Excessive bleeding will be minimized Outcome: Adequate for Discharge RIMENTAL MECHANIC OUTBOARD MOTORS * Plan of Dianna Sabillon RN - 08/07/2016 10:11 PM EXPERIMENTAL MECHANIC OUTBOARD MOTORS Problem: Acute Pain Goal: Pain controlled to patients/families desired goal Outcome: Progressing Problem: Bleeding Precautions Goal: Excessive bleeding will be minimized Outcome: Adequate for Discharge RIMENTAL MECHANIC OUTBOARD MOTORS * Plan of Dianna Sabillon RN - 08/07/2016 10:10 PM EXPERIMENTAL MECHANIC OUTBOARD MOTORS Problem: Risk for Falls Goal: Patient will not fall during their Inpatient stay Outcome: Progressing RIMENTAL MECHANIC OUTBOARD MOTORS documented in this encounter Plan of Treatment Date/Time Name Type Priority Associated Diag noses 08/18/2016 2:14 PM EXPERIMENTAL MECHANIC OUTBOARD MOTORS Consult to Hospitalist Consult Routine documented as of this encounter Procedures Comments Procedure Name Priority Date/Time Associated Diag nosis GLUCOSE POC Routine 08/08/2016 12:16 PM EXPERIMENTAL MECHANIC OUTBOARD MOTORS PROTHROMBIN TIME/INR STAT 08/07/2016 8:35 PM EXPERIMENTAL MECHANIC OUTBOARD MOTORS CBC AND DIFF (MANUAL DIFF STAT 08/07/2016 IF NECESSARY) 8:35 PM EXPERIMENTAL MECHANIC OUTBOARD MOTORS BASIC METABOLIC PANEL STAT 08/07/2016 8:35 PM EXPERIMENTAL MECHANIC OUTBOARD MOTORS documented in this encounter Results * GLUCOSE POC (08/08/2016 12:16 PM EXPERIMENTAL MECHANIC OUTBOARD MOTORS) Glucose POC 188 (H) 70 - 100 mg/dL [facility] Specimen Performing Organization Address City/State/Zipcode Ph one Number [facility] [address] [facility] [place] [address] [facility] [address] [facility] [place] [address], [place] [phone] [facility] * Prothrombin Time/INR (08/07/2016 8:35 PM EXPERIMENTAL MECHANIC OUTBOARD MOTORS) Protime 13.7 11.4 - 15.0 sec [facility] [facility] INR 1.1 0.8 - 1.2 [facility] Specimen Blood Performing Organization Address City/State/[facility] Ph one Number [facility] [address] [facility] [place], [place] [id number] [facility] [address] [facility] [place] [address], [place] [phone] [facility] * Basic Metabolic Panel (08/07/2016 8:35 PM EXPERIMENTAL MECHANIC OUTBOARD MOTORS) Pathologist [facility] Sodium 141 133 - 147 MEQ/L [facility] Potassium 3.7 3.5 - 5.3 MEQ/L [facility] Chloride 104 96 - 112 MEQ/L [facility] Carbon Dioxide 28 20 - 32 MEQ/L [facility] Anion Gap 10 5 - 17 [facility] Calcium 8.6 8.4 - 10.5 mg/dL [facility] Glucose 239 (H) 70 - 100 mg/dL [facility] Blood Urea 16 7 - 26 mg/dL [facility] Nitrogen [facility] Creatinine 0.8 0.4 - 1.1 mg/dL [facility] eGFR Female AA 87 60 - 200 [facility] Comment: [facility] Chronic Kidney Disease less [facility] than 60 mL/min/1.73 sq.m Kidney failure less than 15 mL/min/1.73 sq.m eGFR Female 72 60 - 200 [facility] Non-AA Comment: [facility] Chronic Kidney Disease less [facility] than 60 mL/min/1.73 sq.m Kidney failure less than 15 mL/min/1.73 sq.m Specimen Blood Performing Organization Address City/State/Zipcode Ph one Number [facility] [address] [facility] [place], [place] [id number] [facility] [address] [facility] [place] [address], [facility] * CBC and Diff (manual diff if necessary) (08/07/2016 8:35 PM EXPERIMENTAL MECHANIC OUTBOARD MOTORS) WBC 11.97 (H) 4.00 - 11.00 TH/uL [facility] RBC 3.57 (L) 4.00 - 5.00 MIL/uL [facility] Hemoglobin 11.6 (L) 12.0 - 15.0 g/dL [facility] Hematocrit 36 36 - 45 % [facility] MCV 101 (H) 80 - 99 fL [facility] [facility] MCH 33 27 - 34 pg [facility] MCHC 32 32 - 36 % [facility] RDW 14.2 9.0 - 14.5 % [facility] Platelet Count 127 (L) 140 - 400 TH/uL [facility] MPV 9.6 9.4 - 12.3 fL [facility] % Neutrophils 66 45 - 78 % [place] [facility] %Lymphocytes 21 15 - 47 % [facility] %Monocytes 12 0 - 12 % [facility] %Eosinophils 2 0 - 7 % [facility] %Basophils 0 0 - 2 % [facility] # Granulocytes 7.87 (H) 1.7 - 6.8 TH/uL [facility] # Lymphocytes 2.47 1.0 - 3.3 TH/uL [facility] # Monocytes 1.42 (H) 0.2 - 0.9 TH/uL [facility] # Eosinophils 0.19 0.0 - 0.4 TH/uL [facility] # Basophils 0.02 0.0 - 0.1 TH/uL [facility] Specimen Blood Performing Organization Address City/State/Zipcode Ph one Number [facility] [address] [place] [address] [facility] [address] [facility] [place] [address], [facility] documented in this encounter Visit [...] hours PRN, headaches, fever, Starting Wed08/07/16 at 2037, Do not exceed 4 GM/DAY of acetaminophen. If 65 or older do not exceed 3 GM/DAY. If chronic alcoholic d o not exceed 2 GM/DAY., acetaminophen (TYLENOL) tablet 325-650 mg 325-650 mg, Oral, Every 6 hours PRN, headaches, fever, Starting Wed08/07/16 at 2037, Do not exceed 4 GM/DAY of acetaminophen. If 65 or older do not exceed 3 GM/DAY. If chronic alcoholic d o not exceed 2 GM/DAY., 08/07/2016 9:43 PM EXPERIMENTAL MECHANIC OUTBOARD MOTORS 25 mg amitriptyline (ELAVIL) tablet 25 mg Given 25 mg, Oral, Nightly, First dose on Wed08/07/16 at 2100 08/08/2016 8:32 AM EXPERIMENTAL MECHANIC OUTBOARD MOTORS 5 mg amLODIPine (NORVASC) tablet 5 mg Given 5 mg, Oral, Daily, First dose on 08/08/16 at 0900 08/08/2016 8:32 AM EXPERIMENTAL MECHANIC OUTBOARD MOTORS 20 mg citalopram (CeleXA) tablet 20 mg Given 20 mg, Oral, Daily, First dose on 08/08/16 at 0900 dextrose 50 % syringe 25-50 mL 25-50 mL, Intravenous, As needed, low blood sugar, Starting 08/08/16 at 1158, Give if patient NPO and IV access already available. If no IV access giv e Glucagon SQ or IM in arm and turn patient on side. Recheck BG in 15 minutes. Repeat until glucose greater than 80., 08/08/2016 8:32 AM EXPERIMENTAL MECHANIC OUTBOARD MOTORS 30 mg Abdomina l Tissue enoxaparin (LOVENOX) syringe 30 mg Given 30 mg, Subcutaneous, Every 12 hours scheduled, First dose (after last modification) on 08/08/16 at 0900 08/08/2016 7:24 AM EXPERIMENTAL MECHANIC OUTBOARD MOTORS 1 puff fluticasone-vilanterol (BREO ELLIPTA) Given 100-25 mcg/actuation inhaler 1 puff 1 puff, Inhalation, Daily, First dose o n 08/08/16 at 0900, Rinse mouth with water after use if patient not on vent. , 08/08/2016 8:32 AM EXPERIMENTAL MECHANIC OUTBOARD MOTORS 300 mg gabapentin (NEURONTIN) capsule 300 mg Given 300 mg, Oral, 3 times daily, First dose on Wed08/07/16 at 2100 300 mg Given 08/07/2016 9:43 PM EXPERIMENTAL MECHANIC OUTBOARD MOTORS glucagon (GLUCAGEN) injection 1 mg 1 mg, Intramuscular, As needed, low blood sugar, low blood sugar, Starting 08/08/16 at 1158, If no IV access. May give IM or SQ in arm and turn patient on side., glucagon (GLUCAGEN) injection 1 mg 1 mg, Subcutaneous, As needed, low bloo d sugar, low blood sugar, Starting 08/08/16 at 1158, If no IV access. May give IM or SQ in arm and turn patient o n side., 08/07/2016 9:43 PM EXPERIMENTAL MECHANIC OUTBOARD MOTORS 15 Units Abdomina l Tissue insulin glargine [...] - dose per table, 08/08/2016 11:18 AM EXPERIMENTAL MECHANIC OUTBOARD MOTORS 3 mL ipratropium-albuterol (DUO-NEB) 0.5-3 Given mg/3 mL nebulizer solution 3 mL 3 mL, Inhalation, 4 times daily, First dose on Wed08/07/16 at 2100 3 mL Given 08/08/2016 7:24 AM EXPERIMENTAL MECHANIC OUTBOARD MOTORS 3 mL Given 08/07/2016 9:06 PM EXPERIMENTAL MECHANIC OUTBOARD MOTORS metoclopramide (REGLAN) injection 5-10 mg 5-10 mg, Intravenous, Every 6 hours PRN , nausea, vomiting, Starting Wed08/07/16 at 2037, Use [...] 6 hours as needed., 08/08/2016 8:32 AM EXPERIMENTAL MECHANIC OUTBOARD MOTORS 100 mg metoprolol tartrate (LOPRESSOR) tablet Given 100 mg 100 mg, Oral, 2 times daily, First dose on Wed08/07/16 at 2100 100 mg Given 08/07/2016 9:42 PM EXPERIMENTAL MECHANIC OUTBOARD MOTORS 08/08/2016 10:08 AM EXPERIMENTAL MECHANIC OUTBOARD MOTORS 4 mg morphine injection 2-5 mg Given [...] therapy., 4 mg Given 08/08/2016 6:10 AM EXPERIMENTAL MECHANIC OUTBOARD MOTORS 4 mg Given 08/08/2016 3:01 AM EXPERIMENTAL MECHANIC OUTBOARD MOTORS 08/08/2016 8:39 AM EXPERIMENTAL MECHANIC OUTBOARD MOTORS 4 mg ondansetron (ZOFRAN) 4 mg/2 mL injection Given 4 mg 4 mg, Intravenous, Every 6 hours PRN, nausea, vomiting, Starting Wed08/07/16 at 203608/08/2016 4:28 AM EXPERIMENTAL MECHANIC OUTBOARD MOTORS 10 mg oxyCODONE (ROXICODONE) immediate release Given tablet 5-10 mg 5-10 mg, Oral, Every 4 hours PRN, sever e pain (pain score 7-10), Starting Wed08/07/16 at 2037, Use first line for severe pain (7-10), 10 mg Given 08/07/2016 9:50 PM EXPERIMENTAL MECHANIC OUTBOARD MOTORS 08/08/2016 8:39 AM EXPERIMENTAL MECHANIC OUTBOARD MOTORS 1 tablet oxyCODONE-acetaminophen (PERCOCET) 5-325 Given mg 1 tablet 1 tablet, Oral, Every 4 hours PRN, moderate pain (pain score 4-6), severe pain (pain score 7-10), Starting Wed08/07/16 at 2036, Do not exceed 4 GM/DA Y of acetaminophen. If 65 or older do no t exceed 3 GM/DAY. If chronic alcoholic d o not exceed 2 GM/DAY., 1 tablet Given 08/07/2016 11:55 PM EXPERIMENTAL MECHANIC OUTBOARD MOTORS 08/07/2016 5:40 PM EXPERIMENTAL MECHANIC OUTBOARD MOTORS 2 tablets oxyCODONE-acetaminophen (PERCOCET) 5-325 Given mg 2 tablet 2 tablet, Oral, Once, Wed08/07/16 at 1731, For 1 dose, Do not exceed 4 GM/DA Y of acetaminophen. If 65 or older do no t exceed 3 GM/DAY. If chronic alcoholic d o not exceed 2 GM/DAY., 08/08/2016 6:09 AM EXPERIMENTAL MECHANIC OUTBOARD MOTORS 40 mg pantoprazole (PROTONIX) EC tablet 40 mg Given 40 mg, Oral, Every morning before breakfast, First dose (after last modification) on Wed08/08/16 at 0700, DO NOT CRUSH OR CHEW., 08/07/2016 9:43 PM EXPERIMENTAL MECHANIC OUTBOARD MOTORS 40 mg pravastatin (PRAVACHOL) tablet 40 mg [...]
--- OUTSIDE RECORDS SUMMARY | 2020-03-12 09:24 | XMS REPORT | Encounter Summary ---
Author Author [facility] Organization [facility] Address Unknown Phone Unavailable Care Team Providers Care Mechanical Project Engineer Name Role Phone Ebony Sharp MD PCP Encounter Details Care Team Description Date Type Department Adelaida Olivas MD [address] [facility] [address] [place], [place] [id number] Other specified pre-operative examinatio n 07/23/2016 Lab [facility] [phone] Social History Date Tobacco Use Types Packs/Day [...] APTT Routine 07/23/2016 Other specified 4:29 PM OFFICE SERVICES ASSOCIATE pre-operative examination PROTHROMBIN TIME/INR Routine 07/23/2016 Other spe cified 4:29 PM OFFICE SERVICES ASSOCIATE pre-operative examination COMPLETE BLOOD COUNT Routine 07/23/2016 Other spe cified 4:29 PM OFFICE SERVICES ASSOCIATE pre-operative examination BASIC METABOLIC PANEL Routine 07/23/2016 Other sp ecified 4:29 PM OFFICE SERVICES ASSOCIATE pre-operative examination documented in this encounter Results * Prothrombin Time/INR (07/23/2016 4:29 PM OFFICE SERVICES ASSOCIATE) Protime 12.8 11.4 - 15.0 sec [facility] INR 1.0 0.8 - 1.2 [facility] Specimen Blood Performing Organization Address City/State/[facility] Ph one Number [facility] [address] [place] [address] [facility] [address] [place] [address], [place] [phone] [facility] * APTT (07/23/2016 4:29 PM OFFICE SERVICES ASSOCIATE) APTT 25 22 - 34 sec [facility] Specimen Blood Performing Organization Address [facility] one Number [facility] [address] [place] [address] [facility] [address] [place] [address], [place] [phone] [facility] * Complete Blood Count (07/23/2016 4:29 PM OFFICE SERVICES ASSOCIATE) WBC 8.75 4.00 - 11.00 TH/uL [facility] RBC 4.00 4.00 - 5.00 MIL/uL [facility] Hemoglobin 12.9 12.0 - 15.0 g/dL [facility] Hematocrit 39 36 - 45 % [facility] MCV 98 80 - 99 fL [facility] MCH 32 27 - 34 pg [facility] MCHC 33 32 - 36 % [facility] RDW 13.4 9.0 - 14.5 % [facility] Platelet Count 192 140 - 400 TH/uL [facility] MPV 9.8 9.4 - 12.3 fL [facility] Specimen Blood Performing Organization Address City/State/[facility] Ph one Number [facility] [address] [place], [place] [id number] [facility] [address] [facility] [place] [address], [facility] * Basic Metabolic Panel (07/23/2016 4:29 PM OFFICE SERVICES ASSOCIATE) Sodium 145 133 - 147 MEQ/L [facility] Potassium 3.7 3.5 - 5.3 MEQ/L [facility] Chloride 102 96 - 112 MEQ/L [facility] Carbon Dioxide 27 20 - 32 MEQ/L [facility] Anion Gap 16 5 - 17 [facility] Calcium 9.2 8.4 - 10.5 mg/dL [facility] Glucose 210 (H) 70 - 100 mg/dL [facility] Blood Urea 13 7 - 26 mg/dL [facility] Nitrogen [facility] Creatinine 0.8 0.4 - 1.1 mg/dL [facility] eGFR Female AA 87 [...] mL/min/1.73 sq.m Specimen Blood Performing Organization Address City/State/[facility] Ph one [facility] [address] [facility] [place] [address] [facility] [address] [facility] [place] [address], [facility] documented in this encounter Visit Diagnoses Diagnosis Other specified pre-operative examinati on documented in this encounter
--- OUTSIDE RECORDS SUMMARY | 2020-03-12 09:24 | XMS REPORT | Encounter Summary ---
Author Author [facility] Organization [facility] Address Unknown Phone Unavailable Care Team Providers Care Chemical Processing Laborer Name Role Phone Ebony Sharp MD PCP Encounter Details Care Team Description Date Type Department Medardo Radford MD [address] [facility] [address] [place] [address] [phone] 07/06/2016 Telephone [facility] [address] [facility] [address] [place] [address] Social History Date Tobacco Use Types Packs/Day [...] Eleni Jauregui MA - 07/06/2016 11:50 AM HOP WEIGHER Patient called stating we were supposed to fax a sleep study and CPAP compliance data to the bariatric center for her clearance for surgery. She said they never received it and asked us to refax it. I called her back and told her I would re fax them. Pt understood. WEIGHER documented in this encounter Plan of Treatment Not on filedocumented as of this encounter Visit Diagnoses Not on filedocumented in this encounter
--- OUTSIDE RECORDS SUMMARY | 2020-03-12 09:24 | XMS REPORT | Encounter Summary ---
Author Author [facility] Organization [facility] Address Unknown Phone Unavailable Care Team Providers Care Forming Machine Operator Name Role Phone Ebony Sharp MD PCP Encounter Details Care Team Description Date Type Department Adelaida Olivas MD [address] [facility] [address] [place] [address] 08/07/2016 Hist-Transcript [facility] ion Encounter Specialists [address] [facility] [address] [place], [place] [id number] Social History Date Tobacco Use Types Packs/Day [...] Adelaida Olivas MD - 08/11/2016 11:47 AM SCRAP SHEAR OPERATOR Operative Report Left Ankle Imported By: Socorro Lehman 08/11/2016 11:47:08 AM External Attachment: Type: Image Comment: External Document P SHEAR OPERATOR documented in this encounter Plan of Treatment Not on filedocumented as of this encounter Visit Diagnoses Not on filedocumented in this encounter Additional Health Concerns Last Indicated Resolved Time Infection Onset Date 08/30/2017 04/19/2018 12:13 PM CDT Influenza 08/30/2017 08/30/2019 08/30/2019 1:09 PM SCRAP SHEAR OPERATOR Influenza - Rule Out 08/30/2019 08/31/2019 09/17/2019 8:17 AM SCRAP SHEAR OPERATOR RSV 08/31/2019 documented as of this encounter
--- OUTSIDE RECORDS SUMMARY | 2020-03-12 09:24 | XMS REPORT | Encounter Summary ---
Author Author [facility] Organization [facility] Address Unknown Phone Unavailable Care Team Providers Care Helper Teacher Name Role Phone Ebony Sharp MD PCP Encounter Details Care Team Description Date Type Department Adelaida Olivas MD [address] [facility] [address] [place], [place] [id number] 08/07/2016 Hist-Transcript [place] [facility] ion Encounter Specialists [address] [facility] [address] [place], [place] [phone] Social History Date Tobacco Use Types Packs/Day [...] Adelaida Olivas MD - 08/11/2016 11:59 AM ALUMNI RELATIONS MANAGER NI RELATIONS MANAGER documented in this encounter Plan of Treatment Not on filedocumented as of this encounter Visit Diagnoses Not on filedocumented in this encounter Additional Health Concerns Last Indicated Resolved Time Infection Onset Date 08/30/2017 04/19/2018 12:13 PM CDT Influenza 08/30/2017 08/30/2019 08/30/2019 1:09 PM ALUMNI RELATIONS MANAGER Influenza - Rule Out 08/30/2019 08/31/2019 09/17/2019 8:17 AM ALUMNI RELATIONS MANAGER RSV 08/31/2019 documented as of this encounter
--- OUTSIDE RECORDS SUMMARY | 2020-03-12 09:24 | XMS REPORT | Encounter Summary ---
Author Author [facility] Organization [facility] Address Unknown Phone Unavailable Care Team Providers Care Balancer Scale Name Role Phone Ebony Sharp MD PCP Encounter Details Care Team Description Date Type Department Ebony Sharp MD [address] [facility] [address] [place] [address] 07/07/2016 Documentation [facility] y [facility] [address] [facility] [address] [place] [address] Social History Date Tobacco [...]
--- OUTSIDE RECORDS SUMMARY | 2020-03-12 09:24 | XMS REPORT | Encounter Summary ---
Author Author [facility] Organization [facility] Address Unknown Phone Unavailable Care Team Providers Care Receiving Specialist Name Role Phone Ebony Sharp MD PCP Encounter Details Care Team Description Date Type Department Ebony Sharp MD [address] [facility] [address] [place], [place] [id number] Type 2 diabetes mellitus without complic ation, 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); Hyperlipidemia, unspecified hyperlipidemia type 07/23/2016 Lab [facility] [phone] Social History Date Tobacco Use Types Packs/Day [...] 2 bela betes mellitus HORMONE 4:28 PM GARMENT PRESSER without complicatio n, 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) LIPID PANEL Routine 07/23/2016 Type 2 diabetes mellitus 4:28 PM GARMENT PRESSER without complication, 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) Hyperlipidemia, unspecified hyperlipidemia type HEMOGLOBIN A1C Routine 07/23/2016 Type 2 diabetes mellitus 4:28 PM GARMENT PRESSER without complication, 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) documented in this encounter Results * Lipid Panel (07/23/2016 4:28 PM GARMENT PRESSER) Cholesterol 200 100 - 200 mg/dL [facility] HDL Cholesterol 49 40 - 110 mg/dL [facility] Non-HDL 151 (H) 0 - 130 mg/dL [facility] LABORATORIES Triglycerides 208 (H) 0 - 150 mg/dL [facility] LDL Cholesterol 109 (H) 0 - 99 mg/dL [facility] Cholesterol/HDL 4.1 0.0 - 4.5 [facility] Ratio REGIONAL LABORATORIES Specimen Performing Organization Address [facility] Ph one Number [facility] [address] [place] [address] LABORATORIES * Hemoglobin A1C (07/23/2016 4:28 PM GARMENT PRESSER) Hemoglobin A1C 8.6 (H) 4.0 - 5.6 % [facility] Comment: REGIONAL Non-diabetic 4.0 - LABORATORIES 5.6 % Prediabetes 5.7 - 6.4 % Diabetes >= 6.5 % Specimen Performing Organization Address City/[facility] Ph one Number [facility] [address] [place] [address] LABORATORIES * Thyroid Stimulating Hormone (07/23/2016 4:28 PM GARMENT PRESSER) Thyroid 0.63 0.47 - 4.68 uIU/mL [facility] Stimulating [facility] Hormone LABORATORIES Specimen Performing Organization Address City/[facility] Ph one Number [facility] [address] [place] [address] LABORATORIES documented in this encounter Visit Diagnoses Diagnosis Type 2 diabetes mellitus without compli cation, 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) Hyperlipidemia, unspecified hyperlipide prasanna type documented in this encounter
--- OUTSIDE RECORDS SUMMARY | 2020-03-12 09:24 | XMS REPORT | Encounter Summary ---
Author Author [facility] Organization [facility] Address Unknown Phone Unavailable Care Team Providers Care Dairy Equipment Installer Name Role Phone Ebony Sharp MD PCP Reason for Visit * Reason Comments Follow-up Encounter Details Care Team Description Date Type Department Medardo Radford MD [address] [facility] [address] [place] [address] [phone] SASHA (obstructive sleep apnea) (Primary D x); Goldberg-Ekbom syndrome; Parasomnia; Morbid obesity due to excess calories (HCC) 07/10/[address] [facility] [address] [facility] [address] [place] [address] Social History Date Tobacco Use Types Packs/Day [...] Comments Vital Sign 154/82 07/10/2016 1:08 PM LIBRARY CATALOGING TECHNICIAN Blood Pressure 83 07/10/2016 1:08 PM LIBRARY CATALOGING TECHNICIAN Pulse - - Temperature 18 07/10/2016 1:08 PM LIBRARY CATALOGING TECHNICIAN Respiratory Rate 95% 07/10/2016 1:08 PM LIBRARY CATALOGING TECHNICIAN Oxygen Saturation - - Inhaled Oxygen Concentration 108.4 kg (239 lb) 07/10/2016 1:08 PM LIBRARY CATALOGING TECHNICIAN Weight 157.5 cm (5' 2") 07/10/2016 1:08 PM LIBRARY CATALOGING TECHNICIAN Height 43.71 07/10/2016 1:08 PM LIBRARY CATALOGING TECHNICIAN Body Mass Index documented in this encounter Progress Notes * Medardo Radford MD - 07/10/2016 1:20 PM LIBRARY CATALOGING TECHNICIAN OUTPATIENT SLEEP FOLLOW UP NOTE DATE: 07/10/2016 [...] [facility] any additional concerns or questions. [...] yamile beard is my own. . Pager: [phone]. ARY CATALOGING TECHNICIAN documented in this encounter Plan of Treatment Not on filedocumented as of this encounter Visit Diagnoses Diagnosis SASHA (obstructive sleep apnea) Obstructive sleep apnea (adult) (pediat amita) Goldberg-Ekbom syndrome Parasomnia Other dysfunctions of sleep stages or a rousal from sleep Morbid obesity due to excess calories ( HCC) documented in this encounter
--- OUTSIDE RECORDS SUMMARY | 2020-03-12 09:24 | XMS REPORT | Encounter Summary ---
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 Care Vegetable Cook Name Role Phone Ebony Sharp MD PCP Reason for Visit * Reason Comments Follow-up 3mth fu Encounter Details Care Team Description Date Type Department Ebony Sharp MD [address] [facility] [address] [place] [address] Type 2 diabetes mellitus without complic ation, 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) (Primary Dx); Morbid obesity due to excess calories (HCC); Hyperlipidemia, unspecified hyperlipidemia type 07/23/2016 Office Visit [facility] [address] [facility] [address] [place] [address] Social History Date Tobacco Use [...] Comments Vital Sign 134/80 07/23/2016 3:48 PM RESTAURANT GREETER Blood Pressure 74 07/23/2016 3:48 PM RESTAURANT GREETER Pulse - - Temperature - - Respiratory Rate - - Oxygen Saturation - - Inhaled Oxygen Concentration 108.4 kg (239 lb) 07/23/2016 3:48 PM RESTAURANT GREETER Weight 157.5 cm (5' 2") 07/23/2016 3:48 PM RESTAURANT GREETER Height 43.71 07/23/2016 3:48 PM RESTAURANT GREETER Body Mass Index documented in this encounter Progress Notes * Ebony Sharp MD - 07/23/2016 3:30 PM RESTAURANT GREETER CC: Follow-up (3mth fu ) HPI : [...] her bariatric surgery . Ebony Sharp MD AURANT GREETER documented in this encounter Plan of Treatment Not on filedocumented as of this encounter Results * Lipid Panel (07/23/2016 4:28 PM RESTAURANT GREETER) Cholesterol 200 100 - 200 mg/dL [facility] HDL Cholesterol 49 40 - 110 mg/dL [facility] LABORATORIES Non-HDL 151 (H) 0 - 130 mg/dL [facility] Cholesterol REGIONAL LABORATORIES Triglycerides 208 (H) 0 - 150 mg/dL [facility] LABORATORIES LDL Cholesterol 109 (H) 0 - 99 mg/dL [facility] Cholesterol/HDL 4.1 0.0 - 4.[address] [facility] REGIONAL LABORATORIES Specimen Performing Organization Address City/State/[facility] one Number [facility] [address] LABORATORIES * Hemoglobin A1C (07/23/2016 4:28 PM RESTAURANT GREETER) Hemoglobin A1C 8.6 (H) 4.0 - 5.6 % [facility] Comment: REGIONAL Non-diabetic 4.0 - LABORATORIES 5.6 % Prediabetes 5.7 - 6.4 % Diabetes >= 6.5 % Specimen Performing Organization Address [facility] one Number [facility] [address] LABORATORIES * Thyroid Stimulating Hormone (07/23/2016 4:28 PM RESTAURANT GREETER) Thyroid 0.63 0.47 - 4.68 uIU/mL [facility] REGIONAL Hormone LABORATORIES Specimen Performing Organization Address [facility] one Number [facility] [address] [address] LABORATORIES documented in this encounter Visit Diagnoses Diagnosis Type 2 diabetes mellitus without compli cation, 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) Morbid obesity due to excess calories ( HCC) Hyperlipidemia, unspecified hyperlipide prasanna type documented in this encounter
--- OUTSIDE RECORDS SUMMARY | 2020-03-12 09:24 | XMS REPORT | Encounter Summary ---
Author Author [facility] Organization [facility] Address Unknown Phone Unavailable Care Team Providers Care Bath Solution Maker Name Role Phone Ebony Sharp MD PCP Encounter Details Care Team Description Date Type Department Adelaida Olivas MD [address] [facility] [address] [place] [address] 08/06/2016 Hist-Telephone [place] [facility] [address] [facility] [address] [place], [place] [phone] Social History Date Tobacco Use Types Packs/Day [...] Adelaida Olivas MD - 08/06/2016 1:25 PM EQUIPMENT INSTALLATION PROFESSIONAL Phone Note Call from Patient Summary of [...] Londono on August 06, 2016 1:31 PM PMENT INSTALLATION PROFESSIONAL documented in this encounter Plan of Treatment Not on filedocumented as of this encounter Visit Diagnoses Not on filedocumented in this encounter Additional Health Concerns Last Indicated Resolved Time Infection Onset Date 08/30/2017 04/19/2018 12:13 PM CDT Influenza 08/30/2017 08/30/2019 08/30/2019 1:09 PM EQUIPMENT INSTALLATION PROFESSIONAL Influenza - Rule Out 08/30/2019 08/31/2019 09/17/2019 8:17 AM EQUIPMENT INSTALLATION PROFESSIONAL RSV 08/31/2019 documented as of this encounter
--- OUTSIDE RECORDS SUMMARY | 2020-03-12 09:24 | XMS REPORT | Encounter Summary ---
Author Author [facility] Organization [facility] Address Unknown Phone Unavailable Care Team Providers Care Lacquer Mixer Name Role Phone Ebony Sharp MD PCP Encounter Details Care Team Description Date Type Department Adelaida Olivas MD [address] [facility] [address] [place] [address] 08/10/2016 Hist-Telephone [facility] [address] [facility] [address] [place], [place] [phone] Social History Date Tobacco Use Types Packs/Day [...] Adelaida Olivas MD - 08/10/2016 10:04 AM CHANNELER INSOLE Phone Note Call from Other Clinic Summary of call: Silvestre the patient's daughter is calling and would like to follow up with Dr. Olivas on what he suggests about the patient's ER visit after surgery. She would like to know what they should do about the incision. Please c all back at [phone] Call taken by: Delores Nino on August 10, 2016 10:05 AM Follow-up for Phone Call Follow-up Details: Per Mendy, do not change dressing. Have patient come in tod ay or tomorrow to see her. Message relayed and appointment made for [facility] as they couldn't come in today. Follow-up by: Lilian Greenwood on August 10, 2016 12:41 PM NELER INSOLE documented in this encounter Plan of Treatment Not on filedocumented as of this encounter Visit Diagnoses Not on filedocumented in this encounter Additional Health Concerns Last Indicated Resolved Time Infection Onset Date 08/30/2017 04/19/2018 12:13 PM CDT Influenza 08/30/2017 08/30/2019 08/30/2019 1:09 PM CHANNELER INSOLE Influenza - Rule Out 08/30/2019 08/31/2019 09/17/2019 8:17 AM CHANNELER INSOLE RSV 08/31/2019 documented as of this encounter
[2020-03-12 09:25] LABS: GLUCOSE 364 MG/DL (70-105); TOTAL PROTEIN 8.2 GM/DL (6.4-8.2)
--- OUTSIDE RECORDS SUMMARY | 2020-03-12 09:25 | XMS REPORT | Encounter Summary ---
Author Author [facility] Organization [facility] Address Unknown Phone Unavailable Care Team Providers Care Heading Saw Operator Name Role Phone Ebony Sharp MD PCP Reason for Visit * Reason Comments Follow-up TIM lt ankle [id number] cmlT VX: Appt. Reminder (05/22/2016 06:51 PM) Phone Call - Message Delivered (X=Answering [place]) Encounter Details Care Team Description Date Type Department Adelaida Olivas MD [address] [facility] [address] [place] [address] [phone] 05/26/2016 Hist-Appointmen [facility] Specialists [address] [facility] [address] [place] [address] Social History Date Tobacco Use Types [...]
--- OUTSIDE RECORDS SUMMARY | 2020-03-12 09:25 | XMS REPORT | Encounter Summary ---
Author Author [facility] Organization [facility] Address Unknown Phone Unavailable Care Team Providers Care Fork Repairer Name Role Phone Ebony Sharp MD PCP Encounter Details Care Team Description Date Type Department Adelaida Olivas MD [address] [facility] [address] [place], [place] [id number] 05/26/2016 Hist-Transcript [facility] Orthopaedi [facility] ion Encounter Specialists [address] [facility] [address] [place], [place] [phone] Social History Date Tobacco Use Types Packs/Day [...] CDT Influenza 08/30/2017 08/30/2019 08/30/2019 1:09 PM AUTOMOBILE UPHOLSTERY TRIM INSTALLER Influenza - Rule Out 08/30/2019 08/31/2019 09/17/2019 8:17 AM AUTOMOBILE UPHOLSTERY TRIM INSTALLER RSV 08/31/2019 documented as of this encounter
--- OUTSIDE RECORDS SUMMARY | 2020-03-12 09:25 | XMS REPORT | Encounter Summary ---
Author Author [facility] Organization [facility] Address Unknown Phone Unavailable Care Team Providers Care Spark Plug Tester Name Role Phone Ebony Sharp MD PCP Encounter Details Care Team Description Date Type Department Ebony Sharp MD [address] [facility] [address] [place], [place] [address] 06/03/2016 Documentation [facility] [place] [address] [facility] [address] [place] [address] Social History Date Tobacco Use [...]
--- OUTSIDE RECORDS SUMMARY | 2020-03-12 09:25 | XMS REPORT | Encounter Summary ---
Author Author [facility] Organization [facility] Address Unknown Phone Unavailable Care Team Providers Care Finished Cigar Maker Name Role Phone Ebony Sharp MD PCP Reason for Visit * Reason Comments Sleep Apnea Encounter Details Care Team Description Date Type Department Medardo Radford MD [address] [facility] [address] [place] [address] [phone] SASHA (obstructive sleep apnea) (Primary D x); Goldberg-Ekbom syndrome; Parasomnia 06/26/2016 Office Visit [facility] [address] [facility] [address] [place] [address] Social History Date Tobacco Use Types Packs/Day [...] Please excuse any typographic or grammatical errors. [facility] Neurologist Attestation: I have personally interviewed and examined the patient. The note as edited yamile beard is my own. . Pager: [phone]. Compliance data was reviewed and shows 4 [...] above i s my own. . Pager: . NG MACHINE BOBBIN WINDER documented in this encounter Plan of Treatment Not on filedocumented as of this encounter Visit Diagnoses Diagnosis SASHA (obstructive sleep apnea) Obstructive sleep apnea (adult) (pediat amita) Goldberg-Ekbom syndrome Parasomnia Other dysfunctions of sleep stages or a rousal from sleep documented in this encounter
--- OUTSIDE RECORDS SUMMARY | 2020-03-12 09:25 | XMS REPORT | Encounter Summary ---
Author Author [facility] Organization [facility] Address Unknown Phone Unavailable Care Team Providers Care Horticultural Specialty Grower Name Role Phone Ebony Sharp MD PCP Reason for Visit * Reason Comments Shortness of Breath Pt reprots SOA x1 month, wa s given prednisone by MRI CT TECH, not feeling any better, has hx of COPD. Pt also reports chest pain when she breaths and coughing up a lot of mucus today Chest pain Encounter Details Care Team Description Date Type Department Mike Kelly MD [address] [facility] [place] [address] COPD exacerbation (HCC) (Primary Dx) 06/05/2016 Emergency [facility] 06/06/2016 [address] [place] [address] Social History Date Tobacco Use [...] be sent through Care Everywhere.* COPD FLARE ([place]) documented in this encounter Medications at Time [...] maintenance therapy for asthma 05/09/2016 07/02/2016 FLUVIRIN [id number] 45 mcg ADM 0.5ML IM 0 (15 [...] OBSTRUCTIVE AIRWAYS DISEASE Medardo Radford MD [address] [address] Gege Jeff MD 06/06/16 0242 * Mike Kelly MD - 06/05/2016 10:10 PM CDT 06/05/2016 [facility] History Chief Complaint Patient presents with Shortness of Breath Pt reprots SOA x1 month, was given prednisone by MRI CT TECH, not feeling any better, h as hx [...] VQ (Results Pending) Medardo Radford MD [address] [address] ED Course There is no data filed. ED Clinical Impression 1. COPD exacerbation Mike Kelly MD 06/05/16 1763 * Janet Brown, RN - 06/05/2016 9:16 PM CDT Pt reprots SOA x1 month, was given prednisone by MRI CT TECH, not feeling any better, has hx of [...] 1:48 AM CDT) Specimen Impressions Performed At [facility] ATTESTATION STATEMENT: The Staff Radiologist has personally re viewed this study and agrees with the findings in this report. READING SITE: [facility] The Staff Radiologist has personally re viewed the images and dictated, reviewed, or edited the final report. Narrative Performed At Patient: ISIAH BENÍTEZ Sex#: F # [id number] Jose#: [id number] Location: [place] [address] Procedure Requested: [id number] NM LUNG SCAN VQ Reason for Exam: [...] ISIAH BENÍTEZ Sex#: F # 1950 Jose#: [id number] Location: [place] [address] Procedure Requested: [id number] NM LUNG SCAN VQ Reason for Exam: [...] the findings in this report. READING SITE: [facility] The Staff Radiologist has personally reviewed the images and dictated, reviewed, or edited the final report. Performing Organization Address City/[facility] one Edgar SIM[facility] * D Dimer (06/05/2016 10:09 PM CDT) D Dimer 1.32 (H)Comment: Cutoff value 0.00 - 0.40 ug/m L [facility] for exclusion of venous FEU [facility] thromboembolism is <0.40 ug/mL [facility] FEU. Specimen Blood Performing Organization Address [facility] one Number [facility] [address] [facility] [place] [address] [facility] [address] [facility] [place] [address], [facility] * XR Chest 2 views (PA and lateral) (06/05/2016 10:03 PM CDT) Specimen Impressions Performed At Left midlung zone subsegmental atelectasis. No acute [facility] cardiopulmonary process. ATTESTATION STATEMENT: The Staff Radiol ogist has personally reviewed the images and dictated, reviewed, or edite d the final report. READING SITE: [facility] The Staff Radiologist has personally re viewed the images and dictated, reviewed, or edited the final report. Narrative Performed At Patient: ISIAH BENÍTEZ Sex#: Paulina # 1950 Jose#: [id number] Location: [facility] SED-12 Procedure Requested: [id number] XR CHEST 2 VIEWS (PA AND LATERAL) Reason for Exam: soa Exam Ordered: 06/05/2016 2 137 Exam Date/Time: 06/05/2016 22 03 Begin exam date/time: 06/05/2016 21 50 XR CHEST 2 VIEWS (PA AND LATERAL) INDICATION: soa. COMPARISON STUDY: 12/31/2015. FINDINGS: Lungs: Normal lung volumes. Stable left midlung zone linear opacity, likely subsegmental atelectasis.. No fo rsoalind consolidation. Normal pulmonary vasculature. Pleura: No pleural [...] ISIAH BENÍTEZ Sex#: Paulina # 1950 Jose#: [id number] Location: [facility] SED-12 Procedure Requested: [id number] XR CHEST 2 VIEWS (PA AND LATERAL) [...] or edited the final report. READING SITE: [facility] The Staff Radiologist has personally reviewed the images and dictated, reviewed, or edited the final report. Performing Organization Address City/[facility] one Number [facility] * NTproBNP (06/05/2016 9:36 PM CDT) NTproBNP 54 pg/mL [facility] Comment: [facility] NT-proBNP Reference Ranges: [facility] <50 yr <450 pg/mL 50-75 yr <900 pg/mL >75 yr <1800 pg/mL A cutoff value of 1200 pg/mL is recommended in patients 50 to 70 years of age with a GFR between 30 and 60. NT-proBNP is unreliable in patients with GFR <30. Specimen Blood Performing Organization Address City/[facility] one Number [facility] [address] [place], [place] [id number] [facility] [address] [facility] [place] [address], [place] [phone] [facility] * Troponin (06/05/2016 9:36 PM CDT) Troponin <0.01 0.00 - 0.03 ng/mL [facility] Comment: [facility] Troponin Value [facility] Interpretation 0.00 - 0.03 Healthy 0.04 - 0.12 Increased Cardiac Risk >0.12 Myocardial Infarction Troponin may not become elevated until 6 to 8 hours after onset of symptoms. Specimen Blood Performing Organization Address City/[facility] one Number [facility] [address] [place] [address] [facility] [address] [place] [address], [facility] * Prothrombin Time/INR - ONLY if patient is on Warfarin (06/05/2016 9:36 PM CDT) Protime 12.5 11.4 - 15.0 sec [facility] INR 0.9 0.8 - 1.2 [facility] Specimen Blood Performing Organization Address City/State/[facility] one Number [facility] [address] [place] [address] [facility] [address] [place] [address], [place] [phone] [facility] * CBC and Diff (manual diff if necessary) (06/05/2016 9:36 PM CDT) WBC 11.24 (H) 4.00 - 11.00 TH/uL [facility] RBC 4.10 4.00 - 5.00 MIL/uL [facility] Hemoglobin 13.5 12.0 - 15.0 g/dL [facility] Hematocrit 41 36 - 45 % [facility] MCV 100 (H) 80 - 99 fL [facility] MCH 33 27 - 34 pg [facility] MCHC 33 32 - 36 % [facility] RDW 13.7 9.0 - 14.5 % [facility] Platelet Count 167 140 - 400 TH/uL [facility] MPV 9.7 9.4 - 12.3 fL [facility] % Neutrophils 62 45 - 78 % [facility] %Lymphocytes 26 15 - 47 % [facility] %Monocytes 9 0 - 12 % [facility] %Eosinophils 3 0 - 7 % [facility] %Basophils 0 0 - 2 % [facility] # Granulocytes 7.01 (H) 1.7 - 6.8 TH/uL [facility] # Lymphocytes 2.92 1.0 - 3.3 TH/uL [facility] # Monocytes 0.96 (H) 0.2 - 0.9 TH/uL [facility] # Eosinophils 0.33 0.0 - 0.4 TH/uL [facility] # Basophils 0.02 0.0 - 0.1 TH/uL [facility] Specimen Blood Performing Organization Address City/State/Zipcode Ph one Number [facility] [address] [facility] [place] [address] [facility] [address] [place], [place] [address], [facility] * Comprehensive Metabolic Panel (06/05/2016 9:36 PM CDT) [facility] Sodium 140 133 - 147 MEQ/L [facility] Potassium 3.9 3.5 - 5.3 MEQ/L [facility] Chloride 102 96 - 112 MEQ/L [facility] Carbon Dioxide 27 20 - 32 MEQ/L [facility] Anion Gap 11 5 - 17 [facility] Calcium 8.7 8.4 - 10.5 mg/dL [facility] Glucose 160 (H) 70 - 100 mg/dL [facility] Protein Total 7.6 6.0 - 8.2 g/dL [facility] Serum [facility] Albumin 4.2 3.5 - 5.0 g/dL [facility] Alkaline 76 42 - 140 IU/L [facility] Phosphatase [facility] Alanine 33 13 - 69 IU/L [facility] Aminotransferas [facility] e [facility] Aspartate 32 15 - 46 IU/L [facility] Aminotransferas [facility] e [facility] Bilirubin Total 0.5 0.2 - 1.3 mg/dL [facility] Blood Urea 19 7 - 26 mg/dL [facility] Nitrogen [facility] Creatinine 0.8 0.4 - 1.1 mg/dL [facility] eGFR Female AA 87 60 - 200 [facility] Comment: [facility] Chronic Kidney Disease less [facility] than 60 mL/min/1.73 sq.m Kidney failure less than 15 mL/min/1.73 sq.m eGFR Female 72 60 - 200 [facility] Non-AA Comment: [facility] Chronic Kidney Disease less [facility] than 60 mL/min/1.73 sq.m Kidney failure less than 15 mL/min/1.73 sq.m Specimen Blood Performing Organization Address City/State/[facility] Ph one Number [facility] [address] [place] [facility] [place] [address] [facility] [address] [facility] [place] [address], [place] [phone] [facility] * Electrocardiogram (ECG) (06/05/2016 9:18 PM CDT) Specimen Narrative Performed At [facility] ED Test Date: 2016-06-05 Pat Name: ISIAH BENÍTEZ Department: ERS Room: SED Gender: Female Supervisor Rolling Room: SILVERIO : 1950 Requested By: SANTI TURK Order Number: [id number] Reading MD: Luca Lee Measurements Intervals [place] Rate: 75 P: 56 AK: 160 QRS: 61 QRSD: 104 T: 62 QT: 400 QTc: 447 Interpretive Statements SINUS RHYTHM Compared to ECG 12/31/2015 14:02:38 No significant changes Electronically Signed On 06-11-2016 11: 25:04 CDT by Luca Lee Procedure Note Interface, External Ris In - 06/11/2016 11:25 AM CDT [facility] ED Test Date: 2016-06-05 Pat Name: ISIAH BENÍTEZ Department: ERS Room: SED Gender: Female Supervisor Rolling Room: DF : 1950 Requested By: SANTI TURK Order Number: [id number] Reading : Luca Lee Measurements Intervals [place] Rate: 75 P: 56 AK: 160 QRS: 61 QRSD: 104 T: 62 QT: 400 QTc: 447 Interpretive Statements SINUS RHYTHM Compared to ECG 12/31/2015 14:02:38 No significant changes Electronically Signed On 06-11-2016 11:25:04 CDT by Luca Lee Performing Organization Address City/State/Zipcosc Ph one Number [email or web address] documented in this [...]
--- OUTSIDE RECORDS SUMMARY | 2020-03-12 09:25 | XMS REPORT | Encounter Summary ---
Author Author [facility] Organization [facility] Address Unknown Phone Unavailable Care Team Providers Care Boiler Tenders Supervisor Name Role Phone Ebony Sharp MD PCP Reason for Visit * Reason Comments Results PSG Results Encounter Details Care Team Description Date Type Department Medardo Radford MD [address] [facility] [address] [place] [address] [phone] Results (PSG Results) 06/01/2016 Telephone [facility] [address] [facility] [address] [place] [address] Social History Date Tobacco Use Types Packs/Day [...]
--- OUTSIDE RECORDS SUMMARY | 2020-03-12 09:25 | XMS REPORT | Encounter Summary ---
Author Author [facility] Organization [facility] Address Unknown Phone Unavailable Care Team Providers Care Degreasing Solution Mixer Name Role Phone Ebony Sharp MD PCP Encounter Details Care Team Description Date Type Department Ebony Sharp MD [address] [facility] [address] [place], [place] [id number] 06/03/2016 Documentation [facility] y [facility] [address] [facility] [address] [place] [address] Social History Date Tobacco Use [...]
--- OUTSIDE RECORDS SUMMARY | 2020-03-12 09:25 | XMS REPORT | Encounter Summary ---
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
--- OUTSIDE RECORDS SUMMARY | 2020-03-12 09:25 | XMS REPORT | Encounter Summary ---
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
--- OUTSIDE RECORDS SUMMARY | 2020-03-12 09:25 | XMS REPORT | Encounter Summary ---
Author Author [facility] Organization [facility] Address Unknown Phone Unavailable Care Team Providers Care Hogshead Stock Clerk Name Role Phone Ebony Sharp MD [...] no forwarding address Jackson Gonzalez MD [address] [place] [address] [phone] Katja Guzman, DO [address] [place] [address] [phone] Walker Stout MD [address] [place] [address] [phone] COPD exacerbation (HCC) (Primary Dx); Pneumonia of both lungs due to infectious organism, unspecified part of lung; Hypoxia 06/29/2016 [facility] 07/02/2016 [address] [facility], [place] [id number] Social History Date Tobacco Use Types Packs/Day [...] Comments Vital Sign 133/78 07/02/2016 1:56 PM VIRTUAL ASSISTANT Blood Pressure 79 07/02/2016 1:56 PM VIRTUAL ASSISTANT Pulse 36.8 C (98.3 F) 07/02/2016 1:56 PM VIRTUAL ASSISTANT Temperature 20 07/02/2016 1:56 PM VIRTUAL ASSISTANT Respiratory Rate 95% 07/02/2016 1:56 PM VIRTUAL ASSISTANT Oxygen Saturation - - Inhaled Oxygen Concentration 110.8 kg (244 lb 4.3 oz) 07/01/2016 5:18 AM VIRTUAL ASSISTANT Weight 157.5 cm (5' 2") 06/29/2016 8:05 PM VIRTUAL ASSISTANT Height 44.68 06/29/2016 8:05 PM VIRTUAL ASSISTANT Body Mass Index documented in this encounter Discharge Summaries * Ying Chavez RN BALCONY WORKER - 07/02/2016 3:08 PM VIRTUAL ASSISTANT [facility] SIGNAL MAINTAINER HELPER Hospitalist - Discharge Summary Patient Name: Isiah [...] will continue Guaifenesin AC cough syrup at [facility]. The patient's discharge plan was discussed fully [...] activity as tolerated Scheduled Follow Up Appointments/Studies ([facility]): Future Appointments Date Time Provider Department [...] MG tablet Commonly known as: PEPCID FLUVIRIN [id number] 45 mcg (15 mcg x 3)/0.5 mL [...] evidence of pulmonary thromboembolic disease. READING SITE: [facility] ATTESTATION STATEMENT: The Staff Radiologist has [...] characterization when patient condition permits. READING SITE: [facility] Cardiac Studies during this encouter: No [...] Result Gram stain indicates specimen is not medical sales representative of lower respiratory tract secretions. Culture not performed. Please consult Microbiology if clinical considerations warrant complete processing of this specimen. Specimen will be held 5 days. Culture Result If further workup of this specimen is warranted please phone [phone]) Culture, Blood (Separate sites 15 minutes apart) Collection Time: 06/29/16 4:01 PM - Culture Result No growth at 2 days Culture, Blood (Separate sites 15 minutes apart) Collection Time: 06/29/16 6:30 PM - Culture Result No growth at 2 days Additional Studies: None Procedures: None Time spent on this inpatient discharge was greater than 30 minutes. Ying Chavez RN APRN [facility] Hospitalist Please page through physician paging. . UAL ASSISTANT documented in this encounter Discharge Instructions * Attachments The following attachments cannot be sent through Care Everywhere.* COPD FLARE ([facility]) * COUGHING TECHNIQUES, DISCHARGE INSTRUCTIONS ([facility]) * OXYGEN, USING AT HOME ([facility]) * CODEINE PHOSPHATE, GUAIFENESIN ORAL SYRUP ([facility]) * PREDNISOLONE ORAL TABLET ([facility]) * LEVOFLOXACIN ORAL TABLET ([facility]) documented in this encounter Medications at Time [...] Xiomara Brower RN - 07/02/2016 9:36 AM VIRTUAL ASSISTANT LACE 12 PCP: Dr. Ebony Sharp ([facility] [place]) Outpatient childcare center administrator to schedule f/u appointment per protocol Xiomara Brower RN BSN Mononitrotoluene Operator [phone] UAL ASSISTANT * Zo Juan LMSW - 07/01/2016 11:07 AM VIRTUAL ASSISTANT Pt was alert, oriented and agreeable to completing initial assessment and discha rge planning. PCP, pharm and Rx has been confirmed. Pt stated she has an AD, ирина ntified daughter as her medical sales representative ( SW requested copy of document). Pt is c urrently admitted with COPD exacerbation and SOA.Pt reported she is independent, disabled and resides with daughter and son in law in their home. Pt has a cane, walker and wheelchair to assist with ambulation and utilizes 3L of Oxygen at [facility] ( provider is [facility] [place] Pt reported she also has a C-PCP provided by [facility]. Pt has declined additional resources or assistance with living/medical ex penses at this time. Pt stated she utilized HH 4 yrs ago with 2 knee replacement s, denies SNF hx. Pt will return home self care at this time. SW will remain amaury ilable to assist with DC needs. Zo Luna POLICE RESERVES COMMANDER,RADIO INTERFERENCE TROUBLE SHOOTER [phone] UAL ASSISTANT * Xiomara Mayen RN BALCONY WORKER - 07/01/2016 6:37 AM VIRTUAL ASSISTANT [facility] SIGNAL MAINTAINER HELPER Hospitalist - Progress Note Subjective Chief Complaint: [...] evidence of pulmonary thromboembolic disease. READING SITE: [facility] ATTESTATION STATEMENT: The Staff Radiologist has [...] characterization when patient condition permits. READING SITE: [facility] Echocardiogram Studies: Available studies in the [...] mL Intravenous Continuous PRN Xiomara Mayen RN BALCONY WORKER [facility] Hospitalist Please page through physician paging. . UAL ASSISTANT * Xiomara Mayen RN BALCONY WORKER - 06/30/2016 7:13 AM VIRTUAL ASSISTANT [facility] SIGNAL MAINTAINER HELPER Hospitalist - Progress Note Subjective Chief Complaint: [...] Result Gram stain indicates specimen is not medical sales representative of lower respiratory tract secretions. Culture not performed. Please consult Microbiology if clinical considerations warrant complete processing of this specimen. Specimen will be held 5 days. Culture Result If further workup of this specimen is warranted please phone [phone] ([phone]) Comprehensive Metabolic Panel Collection Time: 06/29/16 4:33 [...] characterization when patient condition permits. READING SITE: [facility] Echocardiogram Studies: Available studies in the [...] 20 mEq Intravenous PRN Xiomara Mayen RN BALCONY WORKER [facility] Hospitalist Please page through physician paging. . UAL ASSISTANT Associated attestation - Katja Guzman DO - 06/30/2016 2:16 PM VIRTUAL ASSISTANT [facility] SIGNAL MAINTAINER HELPER Hospitalist - History & Physical I personally [...] chart including vital signs, labs, imag ing, health consultant notes (if applicable), outside medical records [...] VTE Prevention: Heparin subcutaneous Katja Guzman DO [facility] Hospitalist Please page through physician paging. . * Rodney Qi Keri, HEARING HEALTHCARE PRACTITIONER - 06/30/2016 12:13 AM VIRTUAL ASSISTANT Res[facility] Care Services Initial Consultation Note Name: Isiah Benítez CPI: [id number] Isiah Benítez was evaluated per RATE Consultation [...] and Oxygen Therapy Discharge Considerations Not Applicable UAL ASSISTANT documented in this encounter H&P Notes * Walker Stout MD - 06/29/2016 5:51 PM VIRTUAL ASSISTANT [facility] SIGNAL MAINTAINER HELPER Hospitalist - History & Physical Patient Name: Isiah Do Earline Date of : 1950 Date of [...] mcg/actuation INHALER Inhale 1 puff daily. FLUVIRIN [id number] 45 mcg (15 mcg x 3)/0.5 mL [...] characterization when patient condition permits. READING SITE: [facility] Assessment/Plan * COPD exacerbation Pt mildly [...] treatment as noted above. Walker Stout MD [facility] Hospitalist Please page through physician paging. . UAL ASSISTANT documented in this encounter ED Notes * Roosevelt Smiley, RN - 06/29/2016 7:52 PM VIRTUAL ASSISTANT PT WENT OVER TO CT THEN TO THE FLOOR, PT STABLE WITH TRANSPORT UAL ASSISTANT * Nanci Cunha RN - 06/29/2016 6:43 PM VIRTUAL ASSISTANT SPOKE WITH BRIDGET FROM CT. PATIENT HAS TO WAIT 2 HOURS BEFORE CTA CAN BE DONE DUE TO EATING DINNER. BRIDGET REPORTS COMING TO GET PATIENT AT 1930. PATIENT TH EN WILL BE PUT IN FOR TRANSPORT TO GO TO THE FLOOR. RN ON FLOOR IS AWARE OF SITU ATION. UAL ASSISTANT * Nanci Cunha RN - 06/29/2016 6:32 PM VIRTUAL ASSISTANT PATIENT DELAYED TO GO UPSTAIRS. STILL NEEDS AC IV FOR CTA. REPORT HAS BEEN GIVEN TO FLOOR RN AND AWARE OF DELAY FOR FLOOR. UAL ASSISTANT * Nanci Cunha RN - 06/29/2016 5:38 PM VIRTUAL ASSISTANT MEAL TRAY GIVEN TO PATIENT. HOSPITALIST AT BEDSIDE. FAMILY ALSO BROUGHT FOOD. ALIVIA REED STABLE AT THIS TIME. DIET HAS BEEN ORDERED. PATIENT OK TO EAT. UAL ASSISTANT * Tavon Orellana MD - 06/29/2016 3:34 PM VIRTUAL ASSISTANT 06/29/2016 [facility] History Chief Complaint Patient presents with [...] Room air saturation 90%; Patient placed on surveillance monitor and oxygen EKG interpreted by me shows [...] characterization when patient condition permits. READING SITE: [facility] Results for orders placed or performed [...] 06/29/16 1716 Tavon Orellana MD 06/29/16 1717 UAL ASSISTANT * Nanci Cunha RN - 06/29/2016 3:00 PM VIRTUAL ASSISTANT Patient reports using a CPAP at night. This AM cough got worse and was unable to tolerate the CPAP. That was the deciding factor to come to ER. UAL ASSISTANT * Estefany Castellanos RN - 06/29/2016 2:48 PM VIRTUAL ASSISTANT Pt states she has had two rounds of PO steroids and antibiotics in the last 6 we eks "and it keeps coming back." Pt placed on 2L O2 per NC in triage. UAL ASSISTANT * Estefany Castellanos RN - 06/29/2016 2:42 PM VIRTUAL ASSISTANT c/o SOA x 2 days, states she cannot use her CPAP and breathe. States she thinks she is having a COPD exacerbation, states chest pain has been three days interm ittently. States it is squeezing on the left, non-radiating with diaphoresis, d izziness, nausea. UAL ASSISTANT documented in this encounter Miscellaneous Notes * Therapy Note - Maryam Carrillo, PT - 07/02/2016 11:44 AM VIRTUAL ASSISTANT 07/02/16 1144 Visit Info PT Deferred On 07/02/16 Deferred comments Checked with nurse and she reports pt. may discharge to home [facility]. RN reports pt. has been up in hallway walking ad matt. Checked with pt. and she is feeling much better and states she's been getting up by herself. DC PT UAL ASSISTANT * Plan of Care - Analy Karin K, RN - 07/02/2016 9:41 AM VIRTUAL ASSISTANT Problem: Knowledge Deficit Goal: Patient/family/caregiver demonstrates understanding [...] fall during their Inpatient stay Outcome: Progressing UAL ASSISTANT * Plan of Nurys Pierce RN - 07/02/2016 12:52 AM VIRTUAL ASSISTANT Problem: Knowledge Deficit Goal: Patient/family/caregiver demonstrates understanding [...] Outcome: Progressing Patient safety precautions in place UAL ASSISTANT * Plan of Karin Prather RN - 07/01/2016 12:17 PM VIRTUAL ASSISTANT Problem: Knowledge Deficit Goal: Patient/family/caregiver demonstrates understanding [...] fall during their Inpatient stay Outcome: Progressing UAL ASSISTANT * Plan of Dianna Sabillon RN - 06/30/2016 10:06 PM VIRTUAL ASSISTANT Problem: Knowledge Deficit Goal: Patient/family/caregiver demonstrates understanding [...] their Inpatient stay Outcome: Adequate for Discharge UAL ASSISTANT * Plan of Karin Prather RN - 06/30/2016 6:46 PM VIRTUAL ASSISTANT Problem: Knowledge Deficit Goal: Patient/family/caregiver demonstrates understanding [...] fall during their Inpatient stay Outcome: Progressing UAL ASSISTANT * Assessment & Plan Note - Xiomara Mayen RN APRN - 06/30/2016 12:38 PM VIRTUAL ASSISTANT Associated Problem(s): Tachycardia (Resolved 07/02/2016) Likely multifactorial, receiving breathing treatments, metoprolol held due to co pd exacerbation; Improved with addition of metoprolol; HR now in 90's EKG shows ST --continue metoprolol UAL ASSISTANT * Assessment & Plan Note - Xiomara Mayen RN BALCONY WORKER - 06/30/2016 10:48 AM VIRTUAL ASSISTANT Associated Problem(s): SASHA on CPAP Recent sleep study (prior to gastric bypass surgery)--started on home c-pap with supplemental oxygen --may use home c-pap equipment nightly UAL ASSISTANT * Therapy Note - Maryam Carrillo, PT - 06/30/2016 10:28 AM VIRTUAL ASSISTANT 06/30/16 1028 Visit Info Initial PT Visit [...] CH G-Code determined by: KU Functional Scale UAL ASSISTANT * Assessment & Plan Note - Xiomara Mayen RN BALCONY WORKER - 06/30/2016 9:41 AM VIRTUAL ASSISTANT Associated Problem(s): Acute on chronic respiratory failure [...] protocol --oxygen, titrate to sats > 92% UAL ASSISTANT * Plan of Care - Xiomara Cullen RN - 06/29/2016 11:44 PM VIRTUAL ASSISTANT Problem: Risk for Falls Goal: Patient will not fall during their Inpatient stay Outcome: Progressing Discussed fall risk and reduction of falls UAL ASSISTANT * Plan of Care - Xiomara Cullen RN - 06/29/2016 11:41 PM VIRTUAL ASSISTANT Problem: Knowledge Deficit Goal: Patient/family/caregiver demonstrates understanding [...] is adequate Outcome: Progressing Tolerating regular diet UAL ASSISTANT * Assessment & Plan Note - Xiomara Mayen RN BALCONY WORKER - 06/29/2016 6:43 PM VIRTUAL ASSISTANT Associated Problem(s): Essential hypertension Normotensive --continue metoprolol --continue amlodipine --PRNS UAL ASSISTANT * Assessment & Plan Note - Xiomara Mayen RN BALCONY WORKER - 06/29/2016 6:42 PM VIRTUAL ASSISTANT Associated Problem(s): Type 2 diabetes mellitus with hyperglycemia, with long-te rm current use of insulin (HCC) suboptimal control, likely due to steroids Lantus increased back to home dose; blood sugars now 200's instead of 300's --increase lantus to 17 --continue correction factor --CC diet UAL ASSISTANT * Assessment & Plan Note - Xiomara Mayen RN BALCONY WORKER - 06/29/2016 6:38 PM VIRTUAL ASSISTANT Associated Problem(s): COPD exacerbation (HCC) (Resolved 07/02/2016) [...] oxygen to sats > 92% --check procal UAL ASSISTANT documented in this encounter Plan of Treatment Not on filedocumented as of this encounter Procedures Comments Procedure Name Priority Date/Time Associated Diag nosis GLUCOSE POC Routine 07/02/2016 11:07 AM VIRTUAL ASSISTANT GLUCOSE POC Routine 07/02/2016 7:18 AM VIRTUAL ASSISTANT GLUCOSE POC Routine 07/02/2016 2:29 AM VIRTUAL ASSISTANT GLUCOSE POC Routine 07/01/2016 11:52 PM VIRTUAL ASSISTANT GLUCOSE POC Routine 07/01/2016 8:45 PM VIRTUAL ASSISTANT GLUCOSE POC Routine 07/01/2016 4:53 PM VIRTUAL ASSISTANT GLUCOSE POC Routine 07/01/2016 11:53 AM VIRTUAL ASSISTANT GLUCOSE POC Routine 07/01/2016 7:39 AM VIRTUAL ASSISTANT GLUCOSE POC Routine 06/30/2016 8:23 PM VIRTUAL ASSISTANT GLUCOSE POC Routine 06/30/2016 4:27 PM VIRTUAL ASSISTANT ECG Routine 06/30/2016 12:15 PM VIRTUAL ASSISTANT GLUCOSE POC Routine 06/30/2016 11:37 AM VIRTUAL ASSISTANT GLUCOSE POC Routine 06/30/2016 7:47 AM VIRTUAL ASSISTANT PROCALCITONIN Add-On 06/30/2016 4:17 AM VIRTUAL ASSISTANT COMPLETE BLOOD COUNT Routine 06/30/2016 4:17 AM VIRTUAL ASSISTANT BASIC METABOLIC PANEL Routine 06/30/2016 4:17 AM VIRTUAL ASSISTANT GLUCOSE POC Routine 06/30/2016 12:56 AM VIRTUAL ASSISTANT RESPIRATORY PANEL BY PCR Routine 06/29/2016 9:55 PM VIRTUAL ASSISTANT GLUCOSE POC Routine 06/29/2016 8:[address] ANGIO CHEST Routine 06/29/2016 7:52 PM VIRTUAL ASSISTANT CULTURE, BLOOD STAT 06/29/2016 6:30 PM VIRTUAL ASSISTANT COMPREHENSIVE METABOLIC STAT 06/29/2016 PANEL 4:33 PM VIRTUAL ASSISTANT CULTURE, BLOOD STAT 06/29/2016 4:01 PM VIRTUAL ASSISTANT CULTURE, SPUTUM WITH GRAM STAT 06/29/2016 STAIN 3:54 PM VIRTUAL ASSISTANT XR CHEST SINGLE VIEW STAT 06/29/2016 FRONTAL 3:52 PM VIRTUAL ASSISTANT INFLUENZA AB ANTIGEN STAT 06/29/2016 3:48 PM VIRTUAL ASSISTANT PULSE OXIMETRY, STAT 06/29/2016 CONTINUOUS 3:31 PM VIRTUAL ASSISTANT TROPONIN STAT 06/29/2016 3:00 PM VIRTUAL ASSISTANT NTPROBNP STAT 06/29/2016 3:00 PM VIRTUAL ASSISTANT MAGNESIUM STAT 06/29/2016 3:00 PM VIRTUAL ASSISTANT LACTATE VENOUS WB STAT 06/29/2016 3:00 PM VIRTUAL ASSISTANT CBC AND DIFF (MANUAL DIFF STAT 06/29/2016 IF NECESSARY) 3:00 PM VIRTUAL ASSISTANT ECG STAT 06/29/2016 2:32 PM VIRTUAL ASSISTANT documented in this encounter Results * GLUCOSE POC (07/02/2016 11:07 AM VIRTUAL ASSISTANT) Only the most recent of 14 results within the time period is included. Glucose POC 168 (H) 70 - 100 mg/dL [facility] Specimen Performing Organization Address City/State/Zipcode Ph one Number [facility] [address] [place] [facility] [place] [address] [facility] [place] Abdi MARB[place]ad[place] [address] [place] [facility] [place] [address], [place] [phone] [facility] * Electrocardiogram (ECG) (06/30/2016 12:15 PM VIRTUAL ASSISTANT) Only the most recent of 2 results within the time period is included. Specimen Narrative Performed At KARTHIKRONEL [facility] Test Date: 2016-06-30 Pat Name: ISIAHYOSSI BENÍTEZ Department: [facility] Room: [facility] Gender: Female Petrophysical Engineer: [id number] : 1950 Requested By: PrepClass Order Number: [id number] Reading MD: Zaida Giron Measurements Intervals Lucas Rate: 132 P: 49 NC: 81 QRS: 43 QRSD: 104 T: -18 QT: 324 QTc: 480 Interpretive Statements SINUS TACHYCARDIA BORDERLINE INFERIOR Q WAVES BORDERLINE T ABNORMALITIES, INFERIOR LE ADS Electronically Signed On 07-01-2016 13:0 3:35 VIRTUAL ASSISTANT by Zaida Giron Procedure Note Interface, External Ris In - 07/01/2016 1:03 PM VIRTUAL ASSISTANT [facility] Test Date: 2016-06-30 Pat Name: [facility] Department: [facility] Room: 5020 Gender: Female Petrophysical Engineer: [id number] : 1950 Requested By: PrepClass Order Number: [id number] Reading MD: Zaida Giron Measurements Intervals Lucas Rate: 132 P: 49 NC: 81 QRS: 43 QRSD: 104 T: -18 QT: 324 QTc: 480 Interpretive Statements SINUS TACHYCARDIA BORDERLINE INFERIOR Q WAVES BORDERLINE T ABNORMALITIES, INFERIOR LEADS Electronically Signed On 07-01-2016 13:03:35 VIRTUAL ASSISTANT by Zaida Giron Performing Organization Address City/[facility] Hospitalcom[facility] Ph one Number [email or web address] * Procalcitonin (06/30/2016 4:17 AM VIRTUAL ASSISTANT) Pathologist [facility] Procalcitonin <0.05 0.00 - 0.10 ng/mL [facility] Comment: [facility]IONAL PCT Value LABORATORIES Interpretation 0.10 [...] procalcitonin levels. Specimen Blood Performing Organization Address City/[facility] Ph one Number [address] [address] LABORATORIES * Complete Blood Count (06/30/2016 4:17 AM VIRTUAL ASSISTANT) WBC 6.26 4.00 - 11.00 TH/uL [facility]edia[facility] CHAINels [facility] RBC 3.84 (L) 4.00 - 5.00 MIL/uL [facility] StreetHub'S [facility] Hemoglobin 12.3 12.0 - 15.0 g/dL [facility]ot[facility]ediaG[facility] Hematocrit 38 36 - 45 % [facility]ENTERfotopediaCARIL[facility] MCV 100 (H) 80 - [address] [facility] MCH 32 27 - 34 pg [facility] MCHC 32 32 - 36 % [facility] RDW 13.4 9.0 - 14.5 % [facility]ENTERfotopediaCARILION [facility] Platelet Count 132 (L) 140 - 400 TH/uL [facility] CHAINels [facility] MPV 9.6 9.4 - 12.3 fL [facility] Specimen Blood Performing Organization Address City/State/[facility] Hospitalcode Ph one Number [facility] [address] [place] [address] [facility] [address] [place] [address], [facility] * Basic Metabolic Panel (06/30/2016 4:17 AM VIRTUAL ASSISTANT) [facility] Sodium 141 133 - 147 MEQ/L [facility] Potassium 4.5 3.5 - 5.3 MEQ/L [facility] Chloride 102 96 - 112 MEQ/L [facility] Carbon Dioxide 26 20 - 32 MEQ/L [facility] Anion Gap 13 5 - 17 [facility] Calcium 8.7 8.4 - 10.5 mg/dL [facility] Glucose 311 (H) 70 - 100 mg/dL [facility] Blood Urea 14 7 - 26 mg/dL [facility] Nitrogen [facility] Creatinine 0.7 0.4 - 1.1 mg/dL [facility] eGFR Female AA 101 60 - 200 [facility] Comment: [facility] Chronic Kidney Disease less [facility] than 60 mL/min/1.73 sq.m Kidney failure less than 15 mL/min/1.73 sq.m eGFR Female 85 60 - 200 [facility] Non-AA Comment: [facility] Chronic Kidney Disease less [facility] than 60 mL/min/1.73 sq.m Kidney failure less than 15 mL/min/1.73 sq.m Specimen Blood Performing Organization Address City/State/Zipcode Ph one Number [facility] [address] [place] [address] [facility] [address] [facility] [address] [place] [address], [place] [phone] [facility] * Respiratory Panel by PCR (06/29/2016 9:55 PM VIRTUAL ASSISTANT) Adenovirus Not Detected Not Detected [facility] Coronavirus Not Detected Not Detected [facility] Human Not Detected Not Detected [facility] Metapneumovirus [facility] ([facility]) LABORATORIES Human Not Detected Not Detected [facility] Rhinovirus [facility] Enterovirus LABORATORIES Influenza A Not Detected Not Detected [facility] Influenza B Not Detected Not Detected [facility] Parainfluenza Not Detected Not Detected [facility] Virus [facility] Respiratory Not Detected Not Detected [facility] Syncytial Virus [facility] LABORATORIES Bordetella Not Detected Not Detected [facility] pertussis [facility] Chlamydophila Not Detected Not Detected [facility] pneumoniae [facility] Mycoplasma Not Detected Not Detected [facility] pneumoniae [facility] Source NASOPHAR [facility] Specimen Nasopharynx, Performing Organization Address City/State/Zipcode Ph one Number [facility] [address] [place] [phone] LABORATORIES * CT Angio Chest (06/29/2016 7:52 PM VIRTUAL ASSISTANT) Specimen Impressions Performed At No evidence of pulmonary thromboembolic disease. [facility] READING SITE: [facility] ATTESTATION STATEMENT: The Staff Radiologist has personally re viewed this study and agrees with the findings in this report. The Staff Radiologist has personally re viewed the images and dictated, reviewed, or edited the final report. Narrative Performed At Patient: ISIAH BENÍTEZ Sex#: F # [id number] Jose#: [id number] Location: [facility] [place] [facility] Procedure Requested: [id number] CT ANGIO CHEST Reason for Exam: shortness [...] Rad Results In - 06/30/2016 8:55 AM VIRTUAL ASSISTANT Patient: ISIAH BENÍTEZ Sex#: F # [id number] Jose#: [id number] Location: [facility] Procedure Requested: [id number] CT ANGIO CHEST Reason for Exam: shortness of breath, rule out PE. Exam Ordered: 06/29/20161747 Exam Date/Time: 06/29/20161951 Begin exam date/time: 06/29/20161750 CT ANGIO CHEST INDICATION: shortness of breath, [...] evidence of pulmonary thromboembolic disease. READING SITE: [facility] ATTESTATION STATEMENT: The Staff Radiologist has personally reviewed this study and agrees with the findings in this report. The Staff Radiologist has personally reviewed the images and dictated, reviewed, or edited the final report. Performing Organization Address [facility] one Number LEVI * Culture, Blood (Separate sites 15 minutes apart) (06/29/2016 6:30 PM VIRTUAL ASSISTANT) Only the most recent of 2 results within the time period is included. [facility] Culture Result No Growth at 5 days [facility] Specimen Blood Performing Organization Address [facility] one Number [address] [address] LABORATORIES * Comprehensive Metabolic Panel (06/29/2016 4:33 PM VIRTUAL ASSISTANT) [facility] Sodium 143 133 - 147 MEQ/L [facility] Potassium 3.7 3.5 - 5.3 MEQ/L [facility] Chloride 104 96 - 112 MEQ/L [facility] Carbon Dioxide 30 20 - 32 MEQ/L [facility] Anion Gap 9 5 - 17 [facility] Calcium 8.5 8.4 - 10.5 mg/dL [facility] Glucose 123 (H) 70 - 100 mg/dL [facility] Protein Total 6.8 6.0 - 8.2 g/dL [facility] Serum [facility] Albumin 3.7 3.5 - 5.0 g/dL [facility] Alkaline 77 42 - 140 IU/L [facility] Phosphatase [facility] Alanine 46 13 - 69 IU/L [facility] Aminotransferas [facility] Aspartate 36 15 - 46 IU/L [facility] Aminotransferas [facility] Bilirubin Total 0.4 0.2 - 1.3 mg/dL [facility] Blood Urea 17 7 - 26 mg/dL [facility] Nitrogen [facility] Creatinine 0.7 0.4 - 1.1 mg/dL [facility] eGFR Female AA 101 60 - 200 [facility] Comment: [facility] Chronic Kidney Disease less [facility] than 60 mL/min/1.73 sq.m Kidney failure less than 15 mL/min/1.73 sq.m eGFR Female 85 60 - 200 [facility] Non-AA Comment: [facility] Chronic Kidney Disease less [facility] than 60 mL/min/1.73 sq.m Kidney failure less than 15 mL/min/1.73 sq.m Specimen Blood Narrative Performed At This order is a replacement of the rejected order wit h accession number [facility] [id number]. [facility] Performing Organization Address City/State/Zipcode Ph one Number [facility] [address] [facility] [place] [address] [facility] [address] [facility] [place] [address], [facility] * Culture, Sputum with Gram Stain (06/29/2016 3:54 PM VIRTUAL ASSISTANT) Culture Result Gram stain indicates specimen [facility]UN[facility] is not medical sales representative of [facility] lower respiratory tract [facility] secretions. Culture not performed. Please consult Microbiology if clinical considerations warrant complete processing of this specimen. Specimen will be held 5 days. Culture Result If further workup of this [facility] specimen is warranted please [facility] phone [facility] [phone]) Specimen Sputum Performing Organization Address City/State/Zipcode Ph one Number [facility] [address] [place] [address] [facility] [address] [place] [address], [place] [phone] [facility] * XR Chest single view frontal (06/29/2016 3:52 PM VIRTUAL ASSISTANT) Specimen Impressions Performed At Left basal opacity with partial obscuration of the le raeann SIMS hemidiaphragm could reflect atelectasis . Infection not excluded. Consider PA and lateral chest radiograp hs for further characterization when patient condition permits. READING SITE: [facility] Narrative Performed At Patient: ISIAH BENÍTEZ Sex#: Paulina # [id number] Jose#: [id number] Location: [facility] [place] SED- Procedure Requested: [id number] XR CHEST SINGLE VIEW FRONTAL Reason for [...] Rad Results In - 06/29/2016 4:18 PM VIRTUAL ASSISTANT Patient: ISIAH BENÍTEZ Sex#: F # [id number] Jose#: [id number] Location: [facility] [place] SED- Procedure Requested: [id number] XR CHEST SINGLE VIEW FRONTAL Reason for [...] characterization when patient condition permits. READING SITE: [facility] Performing Organization Address [facility] one Number LEVI * Influenza AB Antigen (06/29/2016 3:48 PM VIRTUAL ASSISTANT) Pathologist [facility] Influenza A Negative Negative [facility] Comment: [facility] A negative rapid influenza [facility] antigen result does not exclude influenza infection. If this patient is being hospitalized, influenza PCR should be ordered. Influenza B Negative Negative [facility] Comment: [facility] A negative rapid influenza [facility] antigen result does not exclude influenza infection. If this patient is being hospitalized, influenza PCR should be ordered. Specimen Nasopharynx, Performing Organization Address [facility] one Number [facility] [address] [facility] [place] [address] [facility] [address] [facility] [address], [place] [phone] [facility] * Magnesium (06/29/2016 3:00 PM VIRTUAL ASSISTANT) Pathologist [facility] Magnesium 2.0 1.4 - 2.7 mg/dL [facility] Specimen Blood Performing Organization Address [facility] one Number [facility] [address] [facility] [address] [facility] [address] [place] [place] [place] [address], [place] [phone] [facility] * Lactate Venous WB - Use GREEN tube (06/29/2016 3:00 PM VIRTUAL ASSISTANT) Lactate Venous 1.9 0.0 - 2.0 mmol/L [facility] Specimen Blood Performing Organization Address [facility] one Number [facility] [address] [place] [address] [facility] [address] [facility] [place] [address], [place] [phone] [facility] * NTproBNP (06/29/2016 3:00 PM VIRTUAL ASSISTANT) NTproBNP 111 pg/mL [facility] Comment: [facility] NT-proBNP Reference Ranges: [facility] <50 yr <450 pg/mL 50-75 yr <900 pg/mL >75 yr <1800 pg/mL A cutoff value of 1200 pg/mL is recommended in patients 50 to 70 years of age with a GFR between 30 and 60. NT-proBNP is unreliable in patients with GFR <30. Specimen Blood Performing Organization Address [facility] one Number [facility] [address] [facility] [place] [address] [facility] [address] [facility] [place] [address], [place] [phone] [facility] * Troponin (06/29/2016 3:00 PM VIRTUAL ASSISTANT) Troponin <0.01 0.00 - 0.03 ng/mL [facility] Comment: [facility] Troponin Value [facility] Interpretation 0.00 - 0.03 Healthy 0.04 - 0.12 Increased Cardiac Risk >0.12 Myocardial Infarction Troponin may not become elevated until 6 to 8 hours after onset of symptoms. Specimen Blood Performing Organization Address [facility] one Number [facility] [address] [facility] [place] [address] [facility] [address] [place] [address], [place] [phone] [facility] * CBC and Diff (manual diff if necessary) (06/29/2016 3:00 PM VIRTUAL ASSISTANT) [facility] Signature WBC 6.88 4.00 - 11.00 TH/uL [facility] RBC 3.83 (L) 4.00 - 5.00 MIL/uL [facility] Hemoglobin 12.4 12.0 - 15.0 g/dL [facility] Hematocrit 38 36 - 45 % [facility] MCV 99 80 - [address] [facility] MCH 32 27 - [address] [facility] MCHC 33 32 - 36 % [facility] RDW 13.2 9.0 - 14.5 % [facility] Platelet Count 148 140 - 400 TH/uL [facility] MPV 10.2 9.4 - 12.[address] [facility] % Neutrophils 51 45 - 78 % [facility] %Lymphocytes 36 15 - 47 % [facility] %Monocytes 9 0 - 12 % [facility] %Eosinophils 4 0 - 7 % [facility] %Basophils 0 0 - 2 % [facility] # Granulocytes 3.51 1.7 - 6.8 TH/uL [facility] # Lymphocytes 2.45 1.0 - 3.3 TH/uL [facility] # Monocytes 0.62 0.2 - 0.9 TH/uL [facility] # Eosinophils 0.28 0.0 - 0.4 TH/uL [facility] # Basophils 0.02 0.0 - 0.1 TH/uL [facility] Specimen Blood Performing Organization Address City/State/Zipcode Ph one Number [facility] [address] [facility] [place] [address] [facility] [address] [facility] [place] [address], [facility] documented in this encounter Visit [...] not exceed 2 GM/DAY., 07/01/2016 8:04 PM VIRTUAL ASSISTANT 25 mg amitriptyline (ELAVIL) tablet 25 mg Given 25 mg, Oral, Nightly, First dose on 06/29/16 at 2100 25 mg Given 06/30/2016 7:48 PM VIRTUAL ASSISTANT 25 mg Given 06/29/2016 9:46 PM VIRTUAL ASSISTANT 07/02/2016 8:19 AM VIRTUAL ASSISTANT 5 mg amLODIPine (NORVASC) tablet 5 mg Given 5 mg, Oral, Daily, First dose on Wed06/29/16 at 2030 5 mg Given 07/01/2016 8:02 AM VIRTUAL ASSISTANT 5 mg Given 06/30/2016 8:28 AM VIRTUAL ASSISTANT 07/02/2016 8:19 AM VIRTUAL ASSISTANT 20 mg citalopram (CeleXA) tablet 20 mg Given 20 mg, Oral, Daily, First dose on Wed06/29/16 at 2030 20 mg Given 07/01/2016 8:02 AM VIRTUAL ASSISTANT 20 mg Given 06/30/2016 8:28 AM VIRTUAL ASSISTANT 07/02/2016 3:18 PM VIRTUAL ASSISTANT 5 mL codeine-guaifenesin (GUAIFENESIN AC) Given 10-100 mg/5 mL liquid 5 mL 5 mL, Oral, Every 4 hours PRN, cough, Starting Wed06/30/16 at 1153 5 mL Given 07/02/2016 10:10 AM VIRTUAL ASSISTANT 5 mL Given 07/02/2016 6:07 AM VIRTUAL ASSISTANT 06/29/2016 3:41 PM VIRTUAL ASSISTANT 25 mcg fentaNYL (SUBLIMAZE) 50 mcg/mL injection Given 25 mcg 25 mcg, Intravenous, Once, Wed06/29/16 at 1533, For 1 dose, Administer over 2 minutes; max dose for IVP is 2 mcg/kg. Note: Limit does not apply to patients who may be tolerant to opioid therapy o r on continuous IV or PO opiate therapy., 06/29/2016 5:23 PM VIRTUAL ASSISTANT 25 mcg fentaNYL (SUBLIMAZE) 50 mcg/mL injection Given 25 mcg 25 mcg, Intravenous, Once, Wed06/29/16 at 1702, For 1 dose, Administer over 2 minutes; max dose for IVP is 2 mcg/kg. Note: Limit does not apply to patients who may be tolerant to opioid therapy o r on continuous IV or PO opiate therapy., 07/02/2016 6:08 AM VIRTUAL ASSISTANT 50 mcg fentaNYL (SUBLIMAZE) 50 mcg/mL injection [...] therapy., 50 mcg Given 07/02/2016 2:19 AM VIRTUAL ASSISTANT 50 mcg Given 07/01/2016 9:08 PM VIRTUAL ASSISTANT 07/02/2016 7:21 AM VIRTUAL ASSISTANT 1 puff fluticasone-vilanterol (BREO ELLIPTA) Given 100-25 mcg/actuation inhaler 1 puff 1 puff, Inhalation, Daily, First dose o n 06/30/16 at 0900, Rinse mouth with water after use if patient not on vent. , 1 puff Given 07/01/2016 7:18 AM VIRTUAL ASSISTANT 1 puff Given 06/30/2016 7:15 AM VIRTUAL ASSISTANT fluticasone-vilanterol (BREO ELLIPTA) 100-25 mcg/actuation inhaler 1 puff 1 puff, Inhalation, Daily, First dose (after last modification) on Wed07/03/16 at 0800, Rinse mouth with wate r after use if patient not on vent. , 07/02/2016 8:19 AM VIRTUAL ASSISTANT 300 mg gabapentin (NEURONTIN) capsule 300 mg Given 300 mg, Oral, 3 times daily, First dose on Wed06/29/16 at 2100 300 mg Given 07/01/2016 8:04 PM VIRTUAL ASSISTANT 300 mg Given 07/01/2016 3:24 PM VIRTUAL ASSISTANT glucagon (GLUCAGEN) injection 1 mg 1 mg, [...] patient o n side., 07/02/2016 6:07 AM VIRTUAL ASSISTANT 5,000 Units Abdomina l Tissue heparin (porcine) 5,000 unit/mL Given injection 5,000 Units 5,000 Units, Subcutaneous, Every 8 hours, First dose on Wed06/29/16 at 220 0 5,000 Units Abdominal Tissue Given 07/01/2016 9:08 PM VIRTUAL ASSISTANT 5,000 Units Abdominal Tissue Given 07/01/2016 1:11 PM VIRTUAL ASSISTANT 07/02/2016 1:28 AM VIRTUAL ASSISTANT 1 tablet HYDROcodone-acetaminophen (NORCO) 5-325 Given mg per tablet 1 tablet 1 tablet, Oral, Every 6 hours PRN, mild pain (pain score 1-3), moderate pain (pain score 4-6), Starting Wed06/29/16 at 2007, Do not exceed 4 GM/DAY of acetaminophen. If 65 or older do not exceed 3 GM/DAY. If chronic alcoholic d o not exceed 2 GM/DAY., 1 tablet Given 07/01/2016 8:04 PM VIRTUAL ASSISTANT 1 tablet Given 07/01/2016 3:24 PM VIRTUAL ASSISTANT 07/02/2016 3:18 PM VIRTUAL ASSISTANT 1 tablet HYDROcodone-acetaminophen (NORCO) 5-325 Given mg per tablet 1 tablet 1 tablet, Oral, Every 4 hours PRN, mild pain (pain score 1-3), moderate pain (pain score 4-6), Starting [facility] 07/02/16 at 0945, Do not exceed 4 GM/DAY of acetaminophen. If 65 or older do not exceed 3 GM/DAY. If chronic alcoholic d o not exceed 2 GM/DAY., 1 tablet Given 07/02/2016 10:11 AM VIRTUAL ASSISTANT 06/29/2016 9:45 PM VIRTUAL ASSISTANT 10 Units Abdomina l Tissue insulin glargine (LANTUS) injection 10 Given Units 10 Units, Subcutaneous, Nightly, First dose on Wed06/29/16 at 209906/30/2016 9:30 PM VIRTUAL ASSISTANT 15 Units Left Arm insulin glargine (LANTUS) injection 15 Given Units 15 Units, Subcutaneous, Nightly, First dose (after last modification) on Wed06/30/16 at 209907/01/2016 9:08 PM VIRTUAL ASSISTANT 17 Units Abdomina l Tissue insulin glargine (LANTUS) injection 17 Given Units 17 Units, Subcutaneous, Nightly, First dose (after last modification) on Wed07/01/16 at 209907/02/2016 12:06 PM VIRTUAL ASSISTANT 2 Units Right Ar m insulin lispro [...] Units Abdominal Tissue Given 07/01/2016 9:08 PM VIRTUAL ASSISTANT 8 Units Right Arm Given 07/01/2016 5:25 PM VIRTUAL ASSISTANT 06/29/2016 7:52 PM VIRTUAL ASSISTANT 78 mL iohexol (OMNIPAQUE) 350 mg iodine/mL Given injection 78 mL 78 mL, Intravenous, Once in imaging, contrast, Starting Wed06/29/16 at 1952, For 1 dose 06/29/2016 4:33 PM VIRTUAL ASSISTANT 3 mL ipratropium-albuterol (DUO-NEB) 0.5-3 Given mg/3 mL nebulizer solution 3 mL 3 mL, Inhalation, Once, Wed06/29/16 at 1533, For 1 dose 07/02/2016 7:20 AM VIRTUAL ASSISTANT 3 mL ipratropium-albuterol (DUO-NEB) 0.5-3 Given mg/3 mL nebulizer solution 3 mL 3 mL, Inhalation, 4 times daily, First dose on Wed06/29/16 at 2100 3 mL Given 07/01/2016 8:53 PM VIRTUAL ASSISTANT 3 mL Given 07/01/2016 2:54 PM VIRTUAL ASSISTANT 07/02/2016 11:00 AM VIRTUAL ASSISTANT 3 mL ipratropium-albuterol (DUO-NEB) 0.5-3 Given mg/3 mL nebulizer solution 3 mL 3 mL, Inhalation, 4 times daily, First dose (after last modification) on Ju 07/02/16 at 1200 06/29/2016 5:26 PM VIRTUAL ASSISTANT 500 mg 100 mL/hr levofloxacin (LEVAQUIN) IVPB 500 mg New Bag (premix) 500 mg, Intravenous, at 100 mL/hr, Once , Indications: COPD, Wed06/29/16 at 1718, For 1 dose 07/02/2016 9:51 AM VIRTUAL ASSISTANT 500 mg 100 mL/hr levofloxacin (LEVAQUIN) IVPB 500 mg New Bag (premix) 500 mg, Intravenous, at 100 mL/hr, Daily, Indications: COPD, First dose on Wed06/30/16 at 1000 500 mg 100 mL/hr New Bag 07/01/2016 10:18 AM VIRTUAL ASSISTANT 500 mg 100 mL/hr New Bag 06/30/2016 9:45 AM VIRTUAL ASSISTANT 06/30/2016 8:28 AM VIRTUAL ASSISTANT 40 mg methylPREDNISolone sod suc(PF) Given (Solu-MEDROL) 40 mg/mL injection 40 mg 40 mg, Intravenous, Every 8 hours scheduled, First dose on Wed06/29/16 at 2030 40 mg Given 06/30/2016 1:05 AM VIRTUAL ASSISTANT 40 mg Given 06/29/2016 9:46 PM VIRTUAL ASSISTANT 07/02/2016 8:19 AM VIRTUAL ASSISTANT 100 mg metoprolol tartrate (LOPRESSOR) tablet Given 100 mg 100 mg, Oral, 2 times daily, First dose on Wed06/30/16 at 1245 100 mg Given 07/01/2016 8:04 PM VIRTUAL ASSISTANT 100 mg Given 07/01/2016 8:02 AM VIRTUAL ASSISTANT 06/29/2016 3:41 PM VIRTUAL ASSISTANT 4 mg ondansetron (ZOFRAN) 4 mg/2 mL injection Given 4 mg 4 mg, Intravenous, Once, Wed06/29/16 at 1533, For 1 dose 06/29/2016 5:23 PM VIRTUAL ASSISTANT 4 mg ondansetron (ZOFRAN) 4 mg/2 mL injection Given 4 mg 4 mg, Intravenous, Once, Wed06/29/16 at 1702, For 1 dose 07/02/2016 6:08 AM VIRTUAL ASSISTANT 40 mg pantoprazole (PROTONIX) EC tablet 40 mg Given 40 mg, Oral, Every morning before breakfast, First dose on Wed06/30/16 at 0730, DO NOT CRUSH OR CHEW., 40 mg Given 07/01/2016 8:02 AM VIRTUAL ASSISTANT 40 mg Given 06/30/2016 8:28 AM VIRTUAL ASSISTANT 07/02/2016 6:24 AM VIRTUAL ASSISTANT 17 g polyethylene glycol (GLYCOLAX) packet 17 Given g 17 g, Oral, Daily PRN, constipation, constipation, Starting Wed06/29/16 at 2007, Mix in 4-8 ounces of liquid. Hold these medications if patient has had loose stool or diarrhea within previous 24 hours., 07/01/2016 8:05 PM VIRTUAL ASSISTANT 40 mg pravastatin (PRAVACHOL) tablet 40 mg Given 40 mg, Oral, Nightly, First dose on Wed06/29/16 at 2100 40 mg Given 06/30/2016 7:48 PM VIRTUAL ASSISTANT 40 mg Given 06/29/2016 9:46 PM VIRTUAL ASSISTANT 07/02/2016 8:19 AM VIRTUAL ASSISTANT 40 mg predniSONE (DELTASONE) tablet 40 mg Given 40 mg, Oral, Daily, First dose on Wed06/30/16 at 0900, Give with food to reduce GI upset, 40 mg Given 07/01/2016 8:02 AM VIRTUAL ASSISTANT 40 mg Given 06/30/2016 8:29 AM VIRTUAL ASSISTANT 07/02/2016 8:18 AM VIRTUAL ASSISTANT 1 tablet senna-docusate (PERICOLACE) 8.6-50 mg 1 Given tablet 1 tablet, Oral, 2 times daily, First dose on Wed07/01/16 at 0900 1 tablet Given 07/01/2016 8:04 PM VIRTUAL ASSISTANT 1 tablet Given 07/01/2016 9:00 AM VIRTUAL ASSISTANT 07/02/2016 9:50 AM VIRTUAL ASSISTANT 25 mL 100 mL/hr sodium chloride 0.9% [...] 100 mL/hr New Bag 06/30/2016 9:44 AM VIRTUAL ASSISTANT documented in this encounter
--- OUTSIDE RECORDS SUMMARY | 2020-03-12 09:25 | XMS REPORT | Encounter Summary ---
Author Author [facility] Organization [facility] Address Unknown Phone Unavailable Care Team Providers Care Clinical Documentation Nurse Name Role Phone Ebony Sharp MD PCP Reason for Visit * Reason Comments Hospital Follow-up TCM CALL Encounter Details Care Team Description Date Type Department Zee Perez RN Hospital Follow-up (TCM CALL ) 07/03/2016 Telephone [facility] [address] [facility] [address] [place], [place] [id number] Social History Date Tobacco Use Types Packs/Day [...] Zee Perez RN - 07/03/2016 8:55 AM ADDRESSER [facility] FOLLOW UP / TRANSITIONAL CARE COORDINATION PATIENT NAME/DATE OF Caren Patten (1950) DATE OF LAST OFFICE VISIT: 02/14/16 [facility] FACILITY/ADMISSION DATE: SLE 06/29/16 DISCHARGE DATE/DISPOSITION: 07/02/16 [...] GIVEN: Left message 07/03/16, 07/06/16 ADDITIONAL NOTES: [facility]: Zee Perez RN ESSER documented in this encounter Plan of Treatment Not on filedocumented as of this encounter Visit Diagnoses Not on filedocumented in this encounter
[2020-03-12 09:26] LABS: CARBON DIOXIDE 23 MMOL/L (21-32)
--- OUTSIDE RECORDS SUMMARY | 2020-03-12 09:26 | XMS REPORT | Encounter Summary ---
Author Author [facility] Organization [facility] Address Unknown Phone Unavailable Care Team Providers Care Molasses And Caramel Operator Name Role Phone Ebony Sharp MD PCP Reason for Visit * Reason Comments Other Encounter Details Care Team Description Date Type Department Ebony Sharp MD [address] [facility] [address] [place] [address] Other 03/21/2016 Refill [facility] [address] [facility] [address] [place], [place] [phone] Social History Date Tobacco Use Types Packs/Day [...]
--- OUTSIDE RECORDS SUMMARY | 2020-03-12 09:26 | XMS REPORT | Encounter Summary ---
Author Author [facility] Organization [facility] Address Unknown Phone Unavailable Care Team Providers Care Door Tender Name Role Phone Ebony Sharp MD PCP Reason for Referral * Diagnostic Imaging (Routine) Referred By Contact Referred To Contact Status Reason Specialty Diagnoses / Procedures Sle Slmg Ls Im/Pc Cl [address] [facility] [address] [place] [address] Closed Procedures DEXA Bone Density Hip Pelvis Spine Encounter Details Care Team Description Date Type Department Ebony Sharp MD [address] [facility] [address] [place], [place] [phone] 03/18/2016 Documentation [facility] [address] [facility] [address] [place] [address] Social History Date Tobacco Use [...]
--- OUTSIDE RECORDS SUMMARY | 2020-03-12 09:26 | XMS REPORT | Encounter Summary ---
Author Author [facility] Organization [facility] Address Unknown Phone Unavailable Care Team Providers Care Marketing Research Intern Name Role Phone Ebony Sharp MD PCP Encounter Details Care Team Description Date Type Department Medardo Radford MD [address] [place], [place] [phone] SASHA (obstructive sleep apnea) (Primary D x) 05/18/2016 Orders Only [facility] ogy [address] [place], [place] [phone] Social History Date Tobacco Use Types Packs/Day [...]
--- OUTSIDE RECORDS SUMMARY | 2020-03-12 09:26 | XMS REPORT | Encounter Summary ---
Author Author [facility] Organization [facility] Address Unknown Phone Unavailable Care Team Providers Care Beader Name Role Phone Ebony Sharp MD PCP Reason for Visit * Reason Comments Other Encounter Details Care Team Description Date Type Department Ebony Sharp MD [address] [facility] [address] [place] [address] Other 05/22/2016 Refill [facility] [address] [facility] [address] [place], [place] [phone] Social History Date Tobacco Use Types Packs/Day [...]
--- OUTSIDE RECORDS SUMMARY | 2020-03-12 09:26 | XMS REPORT | Encounter Summary ---
Author Author [facility] Organization [facility] Address Unknown Phone Unavailable Care Team Providers Care Crystalizer Tender Name Role Phone Ebony Sharp MD PCP Encounter Details Care Team Description Date Type Department Medardo Radford MD [address] [facility] [address] [place] [address] [phone] SASHA (obstructive sleep apnea) (Primary D x); Chronic obstructive pulmonary disease, unspecified COPD type (HCC); Type 2 diabetes mellitus without complication, with long-term current use of insulin ([facility]); Hair loss 05/22/2016 Office Visit [facility] [address] [facility] [address] [place], [place] [address] Social History Date Tobacco Use Types Packs/Day [...] Your Medications These medications were sent to [facility] [address] - [place], [place] - [address] [facility] [address] AT [facility] [address] [address] [facility] [id number] nitrofurantoin (macrocrystal-monohydrate) 100 MG capsule predniSONE 20 [...] needed, patient will be followed up in [facility] to assess for symptom resolution, [...] examined the patient. The note as edited [facility] chirag is my own. . Pager: . documented in this encounter Plan of Treatment Not on filedocumented as of this encounter Visit Diagnoses Diagnosis SASHA (obstructive sleep apnea) Obstructive sleep apnea (adult) (pediat amita) Chronic obstructive pulmonary disease, unspecified COPD type (HCC) Type 2 diabetes mellitus without compli cation, with long-term current use of insulin ([facility]) Hair loss Unspecified alopecia documented in this encounter
--- OUTSIDE RECORDS SUMMARY | 2020-03-12 09:26 | XMS REPORT | Encounter Summary ---
Author Author [facility] Organization [facility] Address Unknown Phone Unavailable Care Team Providers Care E Business Project Manager Name Role Phone Ebony Sharp MD PCP Reason for Visit * Reason Comments Follow-up recdk lft ankle mri at [facility] [address] kmhTVX: Appt. Reminder (04/28/2016 07:21 PM) Phone Call - Responded "Yes" (Y=Answered - Yes) Encounter Details Care Team Description Date Type Department Mendy Carpenter PA-C [address] [address] [phone] 04/30/2016 Hist-Appointmen [facility] [address] [facility] [address] [place] [address] Social History Date Tobacco Use Types Packs/Day [...]
--- OUTSIDE RECORDS SUMMARY | 2020-03-12 09:26 | XMS REPORT | Encounter Summary ---
Author Author [facility] Organization [facility] Address Unknown Phone Unavailable Care Team Providers Care Toy Assembler Wood Name Role Phone Ebony Sharp MD PCP Encounter Details Care Team Description Date Type Department Adelaida Olivas MD [address] [facility] [address] [place], [place] [address] 04/30/2016 Hist-Transcript Aide Orthopaedi c ion Encounter Specialists [address] [facility] [address] [place], [place] [address] Social History Date Tobacco Use Types Packs/Day [...] Influenza 08/30/2017 08/30/2019 08/30/2019 1:09 PM SENIOR SALES OPERATIONS ANALYST Influenza - Rule Out 08/30/2019 08/31/2019 09/17/2019 8:17 AM SENIOR SALES OPERATIONS ANALYST RSV 08/31/2019 documented as of this encounter
--- OUTSIDE RECORDS SUMMARY | 2020-03-12 09:26 | XMS REPORT | Encounter Summary ---
Author Author [facility] Organization [facility] Address Unknown Phone Unavailable Care Team Providers Care Threading Machine Operator Name Role Phone Ebony Sharp MD PCP Encounter Details Care Team Description Date Type Department Adelaida Olivas MD [address] [facility] [address] [place] [address] 05/06/2016 Hist-Telephone [place] [facility] [address] [facility] [address] [place], [place] [address] Social History Date Tobacco Use Types Packs/Day [...] about this. Please call patient back at [phone]. Call taken by: Trina Rhodes on May [...] CDT Influenza 08/30/2017 08/30/2019 08/30/2019 1:09 PM BORDER PATROL OFFICER Influenza - Rule Out 08/30/2019 08/31/2019 09/17/2019 8:17 AM BORDER PATROL OFFICER RSV 08/31/2019 documented as of this encounter
--- OUTSIDE RECORDS SUMMARY | 2020-03-12 09:26 | XMS REPORT | Encounter Summary ---
Author Author [facility] Organization [facility] Address Unknown Phone Unavailable Care Team Providers Care Fitter Mechanic Name Role Phone Ebony Sharp MD PCP Reason for Visit * Reason Comments Urinary Tract Infection dysuria for 2 weeks, freque ncy COPD feels like she is haivng a flare, using inhaler more Encounter Details Care Team Description Date Type Department Alex Bautista NP [address] [facility] [address] [place] [address] [phone] Dysuria (Primary Dx); Urinary tract infection, site not specified; Wheezing 05/22/2016 Office Visit [facility] [address] [facility] [address] [place] [address] Social History Date Tobacco Use [...] encounter Patient Instructions * Patient Instructions* Alex Bautista, KADEN - 05/22/2016 9:10 AM CDT If you [...] necessary, additional treatment may be st arted. [id number] [employer]. [address] [place] [address] 7. All rights reserved. This information is [...] tablet 1 lidocaine (XYLOCAINE) 5 % ointment FAMILIA EXT AA 1 TO 4 XD [...] AM CDT) Isolate 1 >100,000 Cfu/ml (A) [facility] Isolate 1 Escherichia coli (A) [facility] Specimen Urine Antibiotic Method Susceptibility Organism AMPICILLIN 4: Sensitive Escherichia coli CEFAZOLIN. <=4: Sensitive Escherichia coli CEFTRIAXONE <=1: Sensitive Escherichia coli CEFEPIME <=1: Sensitive Escherichia coli MEROPENEM <=0.25: Sensitive Escherichia coli GENTAMICIN <=1: Sensitive Escherichia coli CIPROFLOXACIN. <=0.25: Sensitive Escherichia coli NITROFURANTOIN <=16: Sensitive Escherichia coli SEPTRA/BACTRIM <=20: Sensitive Escherichia coli Performing Organization Address City/State/Zipcode Ph one Number [address] [address] LABORATORIES * POCT urinalysis dipstick (05/22/2016 8:59 AM CDT) Appearance, yellow.cl cloudy Colorless/Yellow/Da r Urine k Yellow Glucose Urine Negative Negative mg/dL Bilirubin Urine Small (A) Negative Ketones Urine Negative Negative Specific 1.030Comment: >= 1.001 - 1.030 [place], UA Hemoglobin Moderate (A) Negative Urine PH Urine 5.5 5.0 - 8.0 Protein Urine 100 (A) Negative Qual Urobilinogen Negative Negative EU/dL Urine Nitrite Urine Positive (A) Negative Leukocyte Large (A) Negative Esterase Specimen Urine documented in this encounter Visit Diagnoses Diagnosis Dysuria Urinary tract infection, site not speci fied Wheezing documented in this encounter
--- OUTSIDE RECORDS SUMMARY | 2020-03-12 09:26 | XMS REPORT | Encounter Summary ---
Author Author [facility] Organization [facility] Address Unknown Phone Unavailable Care Team Providers Care Qualification Engineer Name Role Phone Ebony Sharp MD PCP Reason for Visit * Sleep Study (Routine) Referred By Contact Referred To Contact Status Reason Specialty Diagnoses / Procedures Medardo Radford MD [address] [facility] [address] [place] [address] [facility] [address] [facility] [address] [place] [address] Closed Sleep Medicine Diagnoses SASHA (obstructive sleep apnea) Iron deficiency Goldberg-Ekbom syndrome Parasomnia P rocedures Split Night Sleep Study Encounter Details Care Team Description Date Type Department Medardo Radford MD [address] [facility] [address] [place] [address] [phone] SASHA (obstructive sleep apnea); Iron deficiency; Goldberg-Ekbom syndrome; Parasomnia; PLMD (periodic limb movement disorder) 05/12/2016 Nurse Only [facility] [address] [facility] [address] [place], [place] [address] Social History Date Tobacco Use Types Packs/Day [...]
--- OUTSIDE RECORDS SUMMARY | 2020-03-12 09:26 | XMS REPORT | Encounter Summary ---
Author Author [facility] Organization [facility] Address Unknown Phone Unavailable Care Team Providers Care Cement Mixer Driver Name Role Phone Ebony Sharp MD PCP Reason for Referral * Diagnostic Imaging (Routine) Referred By Contact Referred To Contact Status Reason Specialty Diagnoses / Procedures Ebony Sharp MD [address] [facility] [address] [place] [address] [facility] Cv Nuc Med [address] [place] [address] Closed Cardiology Diagnoses Acute chest pain P rocedures CV MPI 2 Day SPECT Study CV MPI SPECT Pharmacologic Reason for Visit * Diagnostic Imaging (Routine) Referred By Contact Referred To Contact Status Reason Specialty Diagnoses / Procedures Ebony Sharp MD [address] [facility] [address] [place] [address] [facility] Cv Nuc Med [address] [place] [address] Closed Cardiology Diagnoses Acute chest pain P rocedures CV MPI 2 Day SPECT Study CV MPI SPECT Pharmacologic Encounter Details Care Team Description Date Type Department Ebony Sharp MD [address] [facility] [address] [place] [address] [phone] Acute chest pain 05/08/2016 [facility] [address] [place] [address] Social History Date Tobacco Use Types Packs/Day [...] Performed At [facility] NAME: ISIAH BENÍTEZ : [id number] AGE: 65 GENDER: F ACCOUNT NUM: [id number] TEST: REGADENOSON SESTAMIBI STRESS ON LY SPECT SCINTIGRAPHIC REPORT TEST DATE: TEST LOCATION: L REFERRING PHYSICIAN: Ebony Sharp MD SUPERVISING PHYSICIAN: Luca Lee MD MEDICATIONS MEDS LAST 24 HOURS: Pepcid, Breo Elliip ta, Lopressor, Neurontin, ASA, [place], Norvasc, Celexa MEDS HELD LAST 24 HOURS: [...] score of 0. Luca Lee MD [address] [facility] [place] [address] DICTATED DATE: 2016-05-08 14:03:00.0 EVENT MANAGEMENT CONSULTANT DATETIME: 2016-05-08 14:1 5:36.0 ACTUAL TEST TIME: PROVIDER APPROVAL DATETIME: 2016-05-08 14:51:58.0 Procedure Note Interface, External Ris In - 05/08/2016 4:25 PM CDT NAME: ISIAH BENÍTEZ : [id number] AGE: 65 GENDER: F ACCOUNT NUM: [id number] TEST: REGADENOSON SESTAMIBI STRESS ONLY SPECT SCINTIGRAPHIC REPORT TEST DATE: TEST LOCATION: REFERRING PHYSICIAN: Ebony Sharp MD SUPERVISING PHYSICIAN: Luca Lee MD MEDICATIONS MEDS LAST 24 HOURS: Pepcid, Breo Elliipta, Lopressor, Neurontin, ASA, [place], Norvasc, Celexa MEDS HELD LAST 24 HOURS: [...] Agatston score of 0. Luca Lee MD [address] [facility], [address] [place] [address] DICTATED DATE: 2016-05-08 14:03:00.0 EVENT MANAGEMENT CONSULTANT DATETIME: 2016-05-08 14:15:36.0 ACTUAL TEST TIME: PROVIDER APPROVAL DATETIME: 2016-05-08 14:51:58.0 Performing Organization Address City/State/Zipcode Ph one Number [facility] documented in this encounter Visit Diagnoses Diagnosis Acute chest pain Unspecified chest pain documented in this encounter Administered Medications Action Date Dose Rate Site Medication Order MAR Action 05/08/2016 10:15 AM CDT 0.4 mg regadenoson (LEXISCAN) syringe 0.4 mg Given 0.4 mg, Intravenous, Once, Wed05/08/16 at 1015, For 1 dose, Imaging, Administe r of 10 seconds, followed by 5 mL normal saline flush, documented in this encounter
--- OUTSIDE RECORDS SUMMARY | 2020-03-12 09:26 | XMS REPORT | Encounter Summary ---
Author Author [facility] Organization [facility] Address Unknown Phone Unavailable Care Team Providers Care Splitting Machine Operator Helper Name Role Phone Ebony Sharp MD PCP Reason for Visit * Reason Comments Follow-up eldon L ankle Encounter Details Care Team Description Date Type Department Adelaida Olivas MD [address] [facility] [address] [place] [address] [phone] 04/30/2016 Hist-Appointfloresita [facility] t Specialists [address] [facility] [address] [place] [address] Social History Date Tobacco Use Types Packs/Day [...]
--- OUTSIDE RECORDS SUMMARY | 2020-03-12 09:26 | XMS REPORT | Encounter Summary ---
Author Author [facility] Organization [facility] Address Unknown Phone Unavailable Care Team Providers Care Sales Support Rep Name Role Phone Ebony Sharp MD PCP Reason for Referral * MRI/CAT/PET Scan (Routine) Referred By Contact Referred To Contact Status Reason Specialty Diagnoses / Procedures Ebony Sharp MD [address] [facility] [address] [place] [address] Closed Diagnoses Acute chest pain P rocedures CV CT Calcium Scoring Reason for Visit * MRI/CAT/PET Scan (Routine) Referred By Contact Referred To Contact Status Reason Specialty Diagnoses / Procedures Ebony Sharp MD [address] [facility] [address] [place] [address] Closed Diagnoses Acute chest pain P rocedures CV CT Calcium Scoring Encounter Details Care Team Description Date Type Department Ebony Sharp MD [address] [facility] [address] [place], [place] [id number] [facility] [address] [place] [id number] OPTION 2 Social History Date Tobacco Use [...] Performed At [facility] NAME: ISIAH BENÍTEZ : [id number] GENDER: f ACCOUNT NUM: [id number] TEST: Coronary Calcium Score TEST DATE: TEST LOCATION: [facility] INPATIENT: INDICATION FOR TEST: None SYMPTOMS: None [...] artery, a calcium score was computed using [employer] volumetric cardiac scoring software. Such deposits are [...] for further information. Luca Lee MD [address] [facility], [address] [place] [address] PROVIDER APPROVAL DATETIME: 2016-04-23 14:45:20.0 Procedure Note Interface, External Ris In - 05/11/2016 2:17 PM CDT NAME: ISIAH BENÍTEZ : [id number] GENDER: f ACCOUNT NUM: [id number] TEST: Coronary Calcium Score TEST DATE: TEST LOCATION: [facility] INPATIENT: INDICATION FOR TEST: None SYMPTOMS: None [...] for further information. Luca Lee MD [address] [facility], [address] [place] [address] PROVIDER APPROVAL DATETIME: 2016-05-08 14:45:20.0 Performing Organization Address City/State/Zipcode Ph one Number [facility] documented in this encounter Visit Diagnoses Diagnosis Acute chest pain Unspecified chest pain documented in this encounter
--- OUTSIDE RECORDS SUMMARY | 2020-03-12 09:26 | XMS REPORT | Encounter Summary ---
Author Author [facility] Organization [facility] Address Unknown Phone Unavailable Care Team Providers Care Machine Container Washer Name Role Phone Ebony Sharp MD PCP Encounter Details Care Team Description Date Type Department Juarez Noble 04/29/2016 Hist-Transcript [place] [facility] ion Encounter Specialists [address] [facility] [facility] [address] [place], [place] [address] Social History Date Tobacco Use Types Packs/Day [...] [address], [address] * [place] [address] * [phone] [address], [address] * [place] [address] * [phone] [facility] * [place] [address] * [phone] [address], [address] * [place] [address] * [phone] [address] [facility] * [place] [address] * [phone] [address] [facility], [facility] [address] * [place] [address] * [phone] [phone] * [phone] documented in this encounter Plan of Treatment Not on filedocumented as of this encounter Procedures Comments Procedure Name Priority Date/Time Associated Diag nosis MRI PROCEDURE REPORT 04/29/2016 HISTORICAL 6:41 PM CDT documented in this encounter Results * MRI PROCEDURE REPORT HISTORICAL (04/29/2016 6:41 PM CDT) Specimen Narrative Performed At Ordered by an unspecified provider. Procedure Note Interface, Home Care Nurse Conversion - 04/30/2016 11:04 AM CDT MRI [...] mass or anomalous muscle is identified. No Cuhna's neuropathy is identified. No abnormality along the [...] [address], [address] * [place] [address] * [phone] [address], [address] * [place] [address] * [phone] [facility] * [place] [address] * [phone] [address] * [place] [address] * [phone] [address] [facility] * [place], [place] [address] * [phone] [address] * [place], [place] [address] * [phone] [phone] * [phone] documented in this encounter Visit Diagnoses Not on filedocumented in this encounter Additional Health Concerns Last Indicated Resolved Time Infection Onset Date 08/30/2017 04/19/2018 12:13 PM CDT Influenza 08/30/2017 08/30/2019 08/30/2019 1:09 PM CLINICAL APPLICATION CONSULTANT Influenza - Rule Out 08/30/2019 08/31/2019 09/17/2019 8:17 AM CLINICAL APPLICATION CONSULTANT RSV 08/31/2019 documented as of this encounter
--- OUTSIDE RECORDS SUMMARY | 2020-03-12 09:26 | XMS REPORT | Encounter Summary ---
Author Author [facility] Organization [facility] Address Unknown Phone Unavailable Care Team Providers Care Marketing Forecaster Name Role Phone Ebony Sharp MD PCP Encounter Details Care Team Description Date Type Department Medardo Radford MD [address] [facility] [address] [place] [address] [phone] 05/26/2016 Documentation [facility] [address] [facility] [address] [place] [address] Social History Date Tobacco Use Types Packs/Day [...]
--- OUTSIDE RECORDS SUMMARY | 2020-03-12 09:26 | XMS REPORT | Encounter Summary ---
Author Author [facility] Organization [facility] Address Unknown Phone Unavailable Care Team Providers Care Dialysis Chief Equipment Technician Name Role Phone Ebony Sharp MD PCP Reason for Visit * Reason Comments Follow-up Margot Left Ankle/algTVX: Brissa t. Reminder (04/21/2016 06:56 PM) Phone Call - Message Delivered (X=Answering Machine) Encounter Details Care Team Description Date Type Department Mendy Carpenter PA-C [address] [place] [address] [phone] 04/23/2016 Hist-Appointmen Aide Smithi c t Specialists [address] [facility] [address] [place] [address] Social History Date Tobacco Use Types Packs/Day [...]
--- OUTSIDE RECORDS SUMMARY | 2020-03-12 09:26 | XMS REPORT | Encounter Summary ---
Author Author [facility] Organization [facility] Address Unknown Phone Unavailable Care Team Providers Care Brownfield Redevelopment Specialist Name Role Phone Ebony Sharp MD PCP Encounter Details Care Team Description Date Type Department Ebony Sharp MD [address] [facility] [address] [place], [place] [address] 05/11/2016 Documentation [facility] [address] [facility] [address] [place] [address] Social History Date Tobacco Use [...]
--- OUTSIDE RECORDS SUMMARY | 2020-03-12 09:26 | XMS REPORT | Encounter Summary ---
Author Author [facility] Organization [facility] Address Unknown Phone Unavailable Care Team Providers Care Relationship Executive Name Role Phone Ebony Sharp MD PCP Encounter Details Care Team Description Date Type Mendy Mckenzie PA-C [address] [address] [phone] 04/23/2016 Hist-Other [facility] [address] [place] [address] Social History Date Tobacco Use Types Packs/Day [...]
--- OUTSIDE RECORDS SUMMARY | 2020-03-12 09:26 | XMS REPORT | Encounter Summary ---
Author Author [facility] Organization [facility] Address Unknown Phone Unavailable Care Team Providers Care Forest Technician Name Role Phone Ebony Sharp MD PCP Reason for Referral * Diagnostic Imaging (Routine) Referred By Contact Referred To Contact Status Reason Specialty Diagnoses / Procedures Ebony Sharp MD [address] [facility] [address] [place] [address] Sle Cv Lab [address] [place] [address] Closed Cardiology Diagnoses Essential hypertension P rocedures Echo Complete with Doppler and Color Flow Encounter Details Care Team Description Date Type Department Ebony Sharp MD [address] [facility] [address] [place] [address] [phone] Essential hypertension 05/08/2016 [facility] al Encounter [address] [place], [place] [id number] Social History Date Tobacco Use Types Packs/Day [...] ISIAH BENÍTEZ Date: 05/08/2016 07:34 Chart #: [id number] : 1950 Location: [facility] OP Sono: [email or web address] Age: 65 Gender: F Referring: EBONY SHARP MD Room #: OP Fellow: Indication:Essential (primary) hypert ension Procedure: [id number] Complete Echo 2D/Col orflow/Doppler BP: 140 / [...] ISIAH BENÍTEZ Date: 05/08/2016 07:34 Chart #: [id number] : 1950 Location: [facility] OP Sono: hannah Age: 65 Gender: F Referring: EBONY SHARP MD Room #: OP Fellow: Indication:Essential (primary) hypertension Procedure: [id number] Complete Echo 2D/Colorflow/Doppler BP: 140 / 86 [...]
--- OUTSIDE RECORDS SUMMARY | 2020-03-12 09:26 | XMS REPORT | Encounter Summary ---
Author Author [facility] Organization [facility] Address Unknown Phone Unavailable Care Team Providers Care Belt Conveyor Drier Name Role Phone Ebony Sharp MD PCP Encounter Details Care Team Description Date Type Department [place], Historical 04/23/2016 Hist-Transcript [place] [facility] ion Encounter Specialists [address] [facility] [address] [place], [place] [address] Social History Date Tobacco Use Types Packs/Day Years Used Quit: 09/14/2009 Former Smoker Smokeless Tobacco: Never Used Drinks/Week oz/Week Comments Alcohol Use No Sex Assigned at Date Recorded Female Industry Job Start Date Occupation Not on file Not on file Not on file Travel End Travel History Travel Start No recent travel history available. documented as of this encounter Progress Notes * [place], Historical - 04/23/2016 1:49 PM CDT - [...] Influenza 08/30/2017 08/30/2019 08/30/2019 1:09 PM AUTOMOBILE TECHNICIAN Influenza - Rule Out 08/30/2019 08/31/2019 09/17/2019 8:17 AM AUTOMOBILE TECHNICIAN RSV 08/31/2019 documented as of this encounter
--- OUTSIDE RECORDS SUMMARY | 2020-03-12 09:26 | XMS REPORT | Encounter Summary ---
Author Author [facility] Organization [facility] Address Unknown Phone Unavailable Care Team Providers Care Armament Installer Name Role Phone Ebony Sharp MD PCP Encounter Details Care Team Description Date Type Mendy Mckenzie PA-C [address] [address] [phone] 04/23/2016 Hist-Other [facility] Out[facility] ient [facility] [address] [place] [address] Social History Date Tobacco Use Types Packs/Day [...] Performing Organization Address City/State/Zipcode Ph one Number [facility] documented in this encounter Visit Diagnoses Not on filedocumented in this encounter Additional Health Concerns Last Indicated Resolved Time Infection Onset Date 08/30/2017 04/19/2018 12:13 PM CDT Influenza 08/30/2017 documented as of this encounter
--- OUTSIDE RECORDS SUMMARY | 2020-03-12 09:26 | XMS REPORT | Encounter Summary ---
Author Author [facility] Organization [facility] Address Unknown Phone Unavailable Care Team Providers Care Spindraw Operator Name Role Phone Ebony Sharp MD PCP Encounter Details Care Team Description Date Type Department Alex Bautista, KADNE [address] [place] [address] [phone] Dysuria 05/22/2016 Lab [facility] [place] [address] [facility] [address] [place] [address] Social History Date Tobacco Use Types Packs/Day [...] AM CDT) Isolate 1 >100,000 Cfu/ml (A) [facility] Isolate 1 Escherichia coli (A) [facility] Specimen Urine Antibiotic Method Susceptibility Organism AMPICILLIN 4: Sensitive Escherichia coli CEFAZOLIN. <=4: Sensitive Escherichia coli CEFTRIAXONE <=1: Sensitive Escherichia coli CEFEPIME <=1: Sensitive Escherichia coli MEROPENEM <=0.25: Sensitive Escherichia coli GENTAMICIN <=1: Sensitive Escherichia coli CIPROFLOXACIN. <=0.25: Sensitive Escherichia coli NITROFURANTOIN <=16: Sensitive Escherichia coli SEPTRA/BACTRIM <=20: Sensitive Escherichia coli Performing Organization Address City/State/[facility] Ph one Number [address] [address] LABORATORIES documented in this encounter Visit Diagnoses Diagnosis Dysuria documented in this encounter
[2020-03-12 09:27] LABS: BILIRUBIN,TOTAL 0.5 MG/DL (0.1-1.0)
--- OUTSIDE RECORDS SUMMARY | 2020-03-12 09:27 | XMS REPORT | Encounter Summary ---
Author Author [facility] Organization [facility] Address Unknown Phone Unavailable Care Team Providers Care Wood Floor Layer Name Role Phone Ebony Sharp MD PCP Reason for Referral * Sleep Study (Routine) Referred By Contact Referred To Contact Status Reason Specialty Diagnoses / Procedures Medardo Radford MD [address] [facility] [address] [place] [address] [facility] [address] [place] [address] Closed Sleep Medicine Diagnoses SASHA (obstructive sleep apnea) Iron deficiency Goldberg-Ekbom syndrome Parasomnia P rocedures Split Night Sleep Study Reason for Visit * Reason Comments Sleep Apnea Encounter Details Care Team Description Date Type Department Medardo Radford MD [address] [facility] [address] [place], [place] [id number] SASHA (obstructive sleep apnea) (Primary D x); Iron deficiency; Goldberg-Ekbom syndrome; Parasomnia 02/21/2016 Initial consult [facility] [address] [facility] [address] [place], [place] [id number] Social History Date Tobacco Use Types Packs/Day [...] SLEEP CONSULT NOTE DATE: 02/21/2016 PATIENT NAME: Caren Patten : 1950 AGE: 65 y.o. REASON FOR CONSULT: Evaluation of sleep apnea CONSULT REQUESTED BY: No att. providers found PCP: Ebony Sharp MD HISTORY OF PRESENT ILLNESS: I had the pleasure of seeing your patient Caren Patten, date of , today in sleep consultation. I have done a complete review of systems also in the electronic medical record.I have reviewed the Past, Social and Family histo helena on this patient and they have been documented in the electronic medical rec ord. Caren came to this appointment alone. Caren is a 65 y.o.-year-old female presenting for evaluation of sleep apnea. Pat bhupindercarol does not use CPAP or BiPAP, and has no prior history of SASHA. She generally feels very tired, and daytime hypersomnia is minimal with [place] Sleepiness Sca le score of 4/24. Secondary [...] and dysrhythmia. 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 Snoring is present, and disturbing to others [...] night. Patient is instructed to have a dedicated local truck driver to assist with transportation to and [...] Please excuse any typographic or grammatical errors. [facility] Neurologist Attestation: I have personally interviewed and examined the patient. The note as edited abomaria luz e is my own. . Pager: [phone]. documented in this encounter Plan of Treatment Not on filedocumented as of this encounter Results * Split Night Sleep Study (05/18/2016 10:49 AM CDT) Narrative Performed At This result has an attachment that is n ot available. 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
--- OUTSIDE RECORDS SUMMARY | 2020-03-12 09:27 | XMS REPORT | Encounter Summary ---
Author Author [facility] Organization [facility] Address Unknown Phone Unavailable Care Team Providers Care Delinquent Notice Machine Operator Name Role Phone Ebony Sharp MD PCP Encounter Details Care Team Description Date Type Department Medardo Radford MD [address] [id number] SASHA (obstructive sleep apnea); Iron deficiency; Goldberg-Ekbom syndrome; Parasomnia 02/21/2016 Lab [facility] [phone] Social History Date Tobacco Use Types Packs/Day [...] Ferritin 201 (H) 20 - 200 ng/mL [facility] LABORATORIES Specimen Blood Performing Organization Address City/State/Zipcode Ph one Number [facility] [address] [place] [phone] LABORATORIES documented in this encounter Visit Diagnoses Diagnosis SASHA (obstructive sleep apnea) Obstructive sleep apnea (adult) (pediat amita) Iron deficiency 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
--- OUTSIDE RECORDS SUMMARY | 2020-03-12 09:27 | XMS REPORT | Encounter Summary ---
Author Author [facility] Organization [facility] Address Unknown Phone Unavailable Care Team Providers Care Plastics Technician Name Role Phone Ebony Sharp MD PCP Encounter Details Care Team Description Date Type Department Adelaida Olivas MD [address] [facility] [address] [place] [address] [phone] 01/28/2016 Hist-Other [facility] [address] [place] [address] Social History Date Tobacco Use Types Packs/Day [...]
--- OUTSIDE RECORDS SUMMARY | 2020-03-12 09:27 | XMS REPORT | Encounter Summary ---
Author Author [facility] Organization [facility] Address Unknown Phone Unavailable Care Team Providers Care Spinner Hydraulic Name Role Phone Ebony Sharp MD PCP Encounter Details Care Team Description Date Type Department Ebony Sharp MD [address] [facility] [address] [place], [place] [phone] 02/17/[address] [facility] [address] [facility] [address] [place], [place] [phone] Social History Date Tobacco Use Types Packs/Day [...]
--- OUTSIDE RECORDS SUMMARY | 2020-03-12 09:27 | XMS REPORT | Encounter Summary ---
Author Author [facility] Organization [facility] Address Unknown Phone Unavailable Care Team Providers Care Reagent Tender Helper Name Role Phone Ebony Sharp MD PCP Encounter Details Care Team Description Date Type Department Adelaida Olivas MD [address] [facility] [address] [place] [address] [phone] 02/18/2016 Hist-Other [facility] [address] [place] [address] Social History Date Tobacco Use Types Packs/Day [...] 11:22 AM CDT) Specimen Performing Organization Address City/State/Zipcode Ph one Number [facility] documented in this encounter Visit Diagnoses Not on filedocumented in this encounter Additional Health Concerns Last Indicated Resolved Time Infection Onset Date 08/30/2017 04/19/2018 12:13 PM CDT Influenza 08/30/2017 documented as of this encounter
--- OUTSIDE RECORDS SUMMARY | 2020-03-12 09:27 | XMS REPORT | Encounter Summary ---
Author Author [facility] Organization [facility] Address Unknown Phone Unavailable Care Team Providers Care Liquid Fertilizer Servicer Name Role Phone Ebony Sharp MD PCP Encounter Details Care Team Description Date Type Department Ebony Sharp MD [address] [facility] [address] [place], [place] [phone] 01/17/2016 [facility] [address] [facility] [address] [place] [address] Social History Date Tobacco Use [...]
--- OUTSIDE RECORDS SUMMARY | 2020-03-12 09:27 | XMS REPORT | Encounter Summary ---
Author Author [facility] Organization [facility] Address Unknown Phone Unavailable Care Team Providers Care Solid Waste Management Engineer Name Role Phone Ebony Sharp MD PCP Encounter Details Care Team Description Date Type Department Adelaida Olivas MD [address] [facility] [address] [place] [address] 03/16/2016 Hist[facility]Telephone [place] [address] [facility] [address] [place], [place] [phone] Social History Date Tobacco Use Types Packs/Day [...] and pt [facility]on [facility] Jayden. Follow-up for Phone [...] CDT Influenza 08/30/2017 08/30/2019 08/30/2019 1:09 PM NIGHT WORKER Influenza - Rule Out 08/30/2019 08/31/2019 09/17/2019 8:17 AM NIGHT WORKER RSV 08/31/2019 documented as of this encounter
--- OUTSIDE RECORDS SUMMARY | 2020-03-12 09:27 | XMS REPORT | Encounter Summary ---
Author Author [facility] Organization [facility] Address Unknown Phone Unavailable Care Team Providers Care Microarray Specialist Name Role Phone Ebony Sharp MD PCP Reason for Visit * Reason Comments Other Encounter Details Care Team Description Date Type Department Ebony Sharp MD [address] [facility] [address] [place] [address] Other 02/02/2016 Refill [facility] y [facility] [address] [facility] [address] [place], [place] [phone] Social History Date Tobacco Use Types Packs/Day [...]
--- OUTSIDE RECORDS SUMMARY | 2020-03-12 09:27 | XMS REPORT | Encounter Summary ---
Author Author [facility] Organization [facility] Address Unknown Phone Unavailable Care Team Providers Care Piano Bench Assembler Name Role Phone Ebony Sharp MD PCP Encounter Details Care Team Description Date Type Department Adelaida Olivas MD [address] [facility] [address] [place], [place] [phone] 02/18/2016 Hist-Transcript Aide Orthopaedi c ion Encounter Specialists [address] [facility] [address] [place], [place] [phone] Social History Date Tobacco Use Types Packs/Day [...] encounter Progress Notes * Juarez Noble - 02/18/2016 11:55 AM CDT - [...] CDT Influenza 08/30/2017 08/30/2019 08/30/2019 1:09 PM GUEST ASSOCIATE Influenza - Rule Out 08/30/2019 08/31/2019 09/17/2019 8:17 AM GUEST ASSOCIATE RSV 08/31/2019 documented as of this encounter
--- OUTSIDE RECORDS SUMMARY | 2020-03-12 09:27 | XMS REPORT | Encounter Summary ---
Author Author [facility] Organization [facility] Address Unknown Phone Unavailable Care Team Providers Care Asphalt Coater Name Role Phone Ebony Sharp MD PCP Reason for Visit * Reason Comments Follow-up bp issues Encounter Details Care Team Description Date Type Department Ebony Sharp MD [address] [facility] [address] [place] [address] Type 2 diabetes mellitus without complic ation (HCC) (Primary Dx); Hyperlipidemia 01/06/2016 Office Visit [facility] [address] [facility] [address] [place] [address] Social History Date Tobacco Use [...] bariatric surgery. See above for additional infor elizabeth. Ebony Sharp MD documented in this encounter Plan of Treatment Not on filedocumented as of this encounter Procedures Comments Procedure Name Priority Date/Time Associated Diag nosis MAMMOGRAPHY Routine 01/05/2011 COLONOSCOPY Routine 12/23/2009 documented in this encounter Results * Hemoglobin A1C (01/06/2016 12:50 PM CDT) Hemoglobin A1C 6.6 (H) 4.0 - 5.6 % [facility] Comment: REGIONAL Non-diabetic 4.0 - LABORATORIES 5.6 % Prediabetes 5.7 - 6.4 % Diabetes >= 6.5 % Specimen Performing Organization Address City/State/Zipcode Ph one Number [address] [address] LABORATORIES * MAMMOGRAPHY (01/05/2011) Mammogram normal per pt * COLONOSCOPY (12/23/2009) Colonoscopy normal documented in this encounter Visit Diagnoses Diagnosis Type 2 diabetes mellitus without compli cation (HCC) Hyperlipidemia Other and unspecified hyperlipidemia documented in this encounter
--- OUTSIDE RECORDS SUMMARY | 2020-03-12 09:27 | XMS REPORT | Encounter Summary ---
Author Author [facility] Organization [facility] Address Unknown Phone Unavailable Care Team Providers Care Bilingual Research Interviewer Name Role Phone Ebony Sharp MD PCP Encounter Details Care Team Description Date Type Department Adelaida Olivas MD [address] [facility] [address] [place] [address] [phone] 02/18/2016 Hist-Other [facility] [address] [place] [address] Social History Date Tobacco Use Types Packs/Day [...]
--- OUTSIDE RECORDS SUMMARY | 2020-03-12 09:27 | XMS REPORT | Encounter Summary ---
Author Author [facility] Organization [facility] Address Unknown Phone Unavailable Care Team Providers Care Celery Wrapper Name Role Phone Ebony Sharp MD PCP Encounter Details Care Team Description Date Type Department Adleaida Olivas MD [address] [facility] [address] [place], [place] [phone] 01/28/2016 Hist-Transcript Aide Orthopaedi c ion Encounter Specialists [address] [facility] [address] [place], [place] [address] Social History Date Tobacco Use Types Packs/Day [...] CDT Influenza 08/30/2017 08/30/2019 08/30/2019 1:09 PM GRADUATION COACH Influenza - Rule Out 08/30/2019 08/31/2019 09/17/2019 8:17 AM GRADUATION COACH RSV 08/31/2019 documented as of this encounter
--- OUTSIDE RECORDS SUMMARY | 2020-03-12 09:27 | XMS REPORT | Encounter Summary ---
Author Author [facility] Organization [facility] Address Unknown Phone Unavailable Care Team Providers Care Solar Sales Rep Name Role Phone Ebony Sharp MD PCP Reason for Visit * Reason Comments Follow-up eldon left ankle // sm 01/27TVX: Appt. Reminder (02/14/2016 06:40 PM) Phone Call - Responded "Yes" (Y=Answere d - Yes) Encounter Details Care Team Description Date Type Department Adelaida Olivas MD [address] [facility] [address] [place] [address] [phone] 02/18/2016 Hist-Appointmen [facility] [address] [facility] [address] [place] [address] Social History Date Tobacco Use Types Packs/Day [...]
--- OUTSIDE RECORDS SUMMARY | 2020-03-12 09:27 | XMS REPORT | Encounter Summary ---
Author Author [facility] Organization [facility] Address Unknown Phone Unavailable Care Team Providers Care Overseer Kosher Kitchen Name Role Phone Ebony Sharp MD PCP Encounter Details Care Team Description Date Type Department Ebony Sharp MD [address] [facility] [address] [place], [place] [address] Type 2 diabetes mellitus without complic ation (HCC) (Primary Dx) 01/06/2016 Lab [facility] Primar y Care - [facility] [place] [address] [facility] [address] [place], [place] [address] Social History Date Tobacco Use Types Packs/Day [...] Address City/State/Zipcode Ph one Number [facility] [address] [address] LABORATORIES documented in this encounter Visit Diagnoses Diagnosis Type 2 diabetes mellitus without compli cation (HCC) documented in this encounter
--- OUTSIDE RECORDS SUMMARY | 2020-03-12 09:27 | XMS REPORT | Encounter Summary ---
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 Reminder (10/2015 06:56 PM) Phone Call - Message Delivered (N=Answered - Entire Message) Encounter Details Care Team Description Date Type Department Adelaida Olivas MD [address] [facility] [address] [place] [address] [phone] 01/28/2016 Hist-Appointmen Aide Orthopaedi c t Specialists [address] [facility] [address] [place] [address] Social History Date Tobacco Use Types Packs/Day [...]
--- OUTSIDE RECORDS SUMMARY | 2020-03-12 09:27 | XMS REPORT | Encounter Summary ---
Author Author [facility] Organization [facility] Address Unknown Phone Unavailable Care Team Providers Care Fabric And Textile Factory Worker Name Role Phone Ebony Sharp MD PCP Reason for Visit * Reason Comments Toe Injury Pt got up in the night and stubbed her middle toe on the lt foot, toe is bruised and painful Encounter Details Care Team Description Date Type Department Toe fracture, left, closed, initial encounter (Primary Dx) 01/26/2016 Emergency [facility] [address] [place] [address] Social History Date Tobacco Use Types Packs/Day [...] Discharge Instructions * Instructions* Sheryl Warner RN ADJUNCT FACULTY FOR MEDICAL TERMINOLOGY-C - 01/26/2016 Closed Toe Fracture Your big [...] drainage from the wo undor cast Fever [id number] (38.3C)or higher, or as directed by your health care pro vider [phone] [employer] [address] [place] [address] 199 7. All rights reserved. This information is [...] FNP-C - 01/26/2016 12:29 PM CDT 01/26/2016 [facility] History Chief Complaint Patient presents with Toe [...] findings in this report. READING SITE: [facility] The Staff Radiologist has personally reviewed the [...] ided for comfort. A prescription for 8 [place] was provided, in addition to her c hronic [place] that she takes at home. She can also take ibuprofen as needed for pain and swelling. She was instructed to follow up with orthopedics for reevalu ation. She'll return to the emergency department for new or worsening symptoms or concerns. [facility] ED Clinical Impression SNOMED CT(R) 1. Toe fracture, left, closed, initial encounter FRACTURE OF PHALANX OF FOOT Sheryl Warner RN ADJUNCT FACULTY FOR MEDICAL TERMINOLOGY-C 01/26/16 [id number] * Gio Magaña RN - 01/26/2016 12:21 [...] findings in this report. READING SITE: [facility] The Staff Radiologist has personally re viewed the images and dictated, reviewed, or edited the final report. Narrative Performed At Patient: ISIAH BENÍTEZ Sex#: F # [id number] Jose#: [id number] Location: [place] [address] Procedure Requested: [id number] XR FOOT MIN 3 VIEWS LEFT Reason [...] 1:22 PM CDT Patient: ISIAH BENÍTEZ Sex#: F # [id number] Jose#: [id number] Location: [facility] SED-27 Procedure Requested: [id number] XR FOOT MIN 3 VIEWS LEFT Reason [...] findings in this report. READING SITE: [facility] The Staff Radiologist has personally reviewed the [...]
--- OUTSIDE RECORDS SUMMARY | 2020-03-12 09:27 | XMS REPORT | Encounter Summary ---
Author Author [facility] Organization [facility] Address Unknown Phone Unavailable Care Team Providers Care Development Technician Name Role Phone Ebony Sharp MD PCP Encounter Details Care Team Description Date Type Department Medardo Radford MD [address] [facility] [address] [place] [address] [phone] 03/09/2016 Documentation [facility] [address] [facility] [address] [place] [address] Social History Date Tobacco Use Types Packs/Day [...] CDT No PA required for CPT codes 14946-60307 split night sleep study. Pt has Medicar e, requires no pa or pre cert for any procedures. PT scheduled for 04/16 at [facility] documented in this encounter Plan of Treatment Not on filedocumented as of this encounter Visit Diagnoses Not on filedocumented in this encounter
--- OUTSIDE RECORDS SUMMARY | 2020-03-12 09:27 | XMS REPORT | Encounter Summary ---
Author Author [facility] Organization [facility] Address Unknown Phone Unavailable Care Team Providers Care Flame Cutting Machine Operator Name Role Phone Ebony Sharp MD PCP Reason for Visit * Reason Comments Other Encounter Details Care Team Description Date Type Department Ebony Sharp MD [address] [facility] [address] [place] [address] Other 02/29/2016 Refill [facility] y [facility] [address] [facility] [address] [place], [place] [address] Social History Date Tobacco Use Types Packs/Day [...]
--- OUTSIDE RECORDS SUMMARY | 2020-03-12 09:27 | XMS REPORT | Encounter Summary ---
Author Author [facility] Organization [facility] Address Unknown Phone Unavailable Care Team Providers Care Research Associate Molecular Biology Name Role Phone Ebony Sharp MD PCP Reason for Visit * Reason Comments Other Encounter Details Care Team Description Date Type Department Medardo Radford MD [address] [place], [place] [phone] 02/25/2016 Telephone [facility] [address] [place] [address] Social History Date Tobacco Use Types Packs/Day [...]
--- OUTSIDE RECORDS SUMMARY | 2020-03-12 09:27 | XMS REPORT | Encounter Summary ---
Author Author [facility] Organization [facility] Address Unknown Phone Unavailable Care Team Providers Care Instructor Bus Trolley And Taxi Name Role Phone Ebony Sharp MD PCP Encounter Details Care Team Description Date Type Department Ebony Sharp MD [address] [facility] [address] [place] [address] 03/09/2016 [facility]ation [facility] [address] [facility] [address] [place] [address] Social History Date Tobacco Use [...]
--- OUTSIDE RECORDS SUMMARY | 2020-03-12 09:27 | XMS REPORT | Encounter Summary ---
Author Author [facility] Organization [facility] Address Unknown Phone Unavailable Care Team Providers Care Crop Picker Name Role Phone Ebony Sharp MD PCP Encounter Details Care Team Description Date Type Department Adelaida Olivas MD [address] [facility] [address] [place] [address] [phone] 01/28/2016 Hist-Other [facility] [address] [place] [address] Social History Date Tobacco Use Types Packs/Day [...]
--- OUTSIDE RECORDS SUMMARY | 2020-03-12 09:27 | XMS REPORT | Encounter Summary ---
Author Author [facility] Organization [facility] Address Unknown Phone Unavailable Care Team Providers Care Dental Appliance Mechanic Name Role Phone Ebony Sharp MD PCP Reason for Referral * Diagnostic Imaging (Routine) Referred By Contact Referred To Contact Status Reason Specialty Diagnoses / Procedures Ebony Sharp MD [address] [facility] [address] [place] [address] [facility] Cv Nuc Med [address] [place] [address] Closed Cardiology Diagnoses Acute chest pain P rocedures CV MPI 2 Day SPECT Study CV MPI SPECT Pharmacologic Reason for Visit * Reason Comments Follow-up 4mth fu Encounter Details Care Team Description Date Type Department Ebony Sharp MD [address] [facility] [address] [place], [place] [address] Acute chest pain (Primary Dx); Type 2 diabetes mellitus without complication (HCC); Essential hypertension; MATA (generalized anxiety disorder); Hyperlipidemia 02/14/2016 Office Visit [facility] [address] [facility] [address] [place] [address] Social History Date Tobacco Use [...] Progress Notes * Ebony Sharp MD - 02/14/2016 4:37 PM CDT [...] 1 capsule (300 mg total) by mo ut 3 (three) times a day. - insulin [...] filedocumented as of this encounter Results * CV MPI 2 Day SPECT Study (05/08/2016 11:28 AM CDT) Specimen Narrative Performed At [facility] NAME: ISIAH BENÍTEZ : [id number] AGE: 65 GENDER: F ACCOUNT NUM: [id number] TEST: REGADENOSON SESTAMIBI STRESS ON LY SPECT SCINTIGRAPHIC REPORT TEST DATE: TEST LOCATION: L REFERRING PHYSICIAN: Ebony Sharp MD SUPERVISING PHYSICIAN: Luca Lee MD MEDICATIONS MEDS LAST 24 HOURS: Pepcid, Breo Elliip ta, Lopressor, Neurontin, ASA, Brigantine, Norvasc, Celexa MEDS HELD LAST 24 HOURS: [...] score of 0. Luca Lee MD [address] [facility], [address] [place] [address] DICTATED DATE: 2016-05-08 14:03:00.0 PLANT ELECTRICIAN DATETIME: 2016-05-08 14:1 5:36.0 ACTUAL TEST TIME: PROVIDER APPROVAL DATETIME: 2016-05-08 14:51:58.0 Procedure Note Interface, External Ris In - 05/08/2016 4:25 PM CDT NAME: ISIAH BENÍTEZ : [id number] AGE: 65 GENDER: F ACCOUNT NUM: [id number] TEST: REGADENOSON SESTAMIBI STRESS ONLY SPECT SCINTIGRAPHIC REPORT TEST DATE: TEST LOCATION: REFERRING PHYSICIAN: Ebony Sharp MD SUPERVISING PHYSICIAN: Luca Lee MD MEDICATIONS MEDS LAST 24 HOURS: Pepcid, Breo Elliipta, Lopressor, Neurontin, ASA, Brigantine, Norvasc, Celexa MEDS HELD LAST 24 HOURS: [...] score of 0. Luca Lee MD [address] [facility], [address] [place] [address] DICTATED DATE: 2016-05-08 14:03:00.0 PLANT ELECTRICIAN DATETIME: 2016-05-08 14:15:36.0 ACTUAL TEST TIME: PROVIDER [...]
[2020-03-12 09:28] LABS: ALKALINE PHOSPHATASE 79 U/L (40-136)
--- OUTSIDE RECORDS SUMMARY | 2020-03-12 09:28 | XMS REPORT | Encounter Summary ---
Author Author [facility] Organization [facility] Address Unknown Phone Unavailable Care Team Providers Care Assembly Lead Person Name Role Phone Ebony Sharp MD PCP Reason for Visit * Reason Comments Medication Refill Encounter Details Care Team Description Date Type Department Ebony Sharp MD [address] [facility] [address] [place], [place] [id number] Medication Refill 12/02/2015 Refill [facility] Primar y Care - East [address] [facility] [address] [place], [place] [phone] Social History Date Tobacco Use Types Packs/Day [...]
--- OUTSIDE RECORDS SUMMARY | 2020-03-12 09:28 | XMS REPORT | Encounter Summary ---
Author Author [facility] Organization [facility] Address Unknown Phone Unavailable Care Team Providers Care Travel Registered Nurse Pacu Name Role Phone Ebony Sharp MD PCP Reason for Visit * Reason Comments Medication Refill Encounter Details Care Team Description Date Type Department Tiburcio Wagoner MD [address] [facility] [address] [place], [place] [phone] Medication Refill 10/16/2015 Refill [facility] Primar y Care - East [address] [facility] [address] [place], [place] [id number] Social History Date Tobacco Use Types Packs/Day [...]
--- OUTSIDE RECORDS SUMMARY | 2020-03-12 09:28 | XMS REPORT | Encounter Summary ---
Author Author [facility] Organization [facility] Address Unknown Phone Unavailable Care Team Providers Care Cocoa Powder Mixer Operator Name Role Phone Ebony Sharp MD PCP Encounter Details Care Team Description Date Type Department Ebony Sharp MD [address] [facility] [address] [place], [place] [phone] Essential hypertension; Hyperlipidemia; Type 2 diabetes mellitus without complication (HCC); Elevated MCV 09/24/2015 Lab [facility] Primar y Care - [facility] [place] [address] [facility] [address] [facility] [place], [place] [id number] Social History Date Tobacco Use Types Packs/Day [...] B12 Routine 09/24/2015 Elevated MCV 11:55 AM EPIC AMBULATORY ANALYST THYROID STIMULATING Routine 09/24/2015 Essential hypertension HORMONE 11:55 AM EPIC AMBULATORY ANALYST LIPID PANEL Routine 09/24/2015 Hyperlipidemia 11:55 AM EPIC AMBULATORY ANALYST HEMOGLOBIN A1C Routine 09/24/2015 Type 2 diabetes mellitus 11:55 AM EPIC AMBULATORY ANALYST without complication (HCC) COMPREHENSIVE METABOLIC Routine 09/24/2015 Essent ial hypertension PANEL 11:55 AM EPIC AMBULATORY ANALYST Hyperlipidemia CBC AND DIFF (MANUAL DIFF Routine 09/24/2015 Esse ntial hypertension IF NECESSARY) 11:55 AM EPIC AMBULATORY ANALYST URINALYSIS MICROSCOPIC Routine 09/24/2015 ONLY 11:46 AM EPIC AMBULATORY ANALYST URINALYSIS REFLEX Routine 09/24/2015 11:46 AM EPIC AMBULATORY ANALYST MICROALBUMIN RANDOM Routine 09/24/2015 11:46 AM EPIC AMBULATORY ANALYST CULTURE, URINE Routine 09/24/2015 11:46 AM EPIC AMBULATORY ANALYST documented in this encounter Results * Vitamin B12 (09/24/2015 11:55 AM EPIC AMBULATORY ANALYST) VITAMIN B12 436 239 - 931 pg/mL [facility] Specimen Blood Performing Organization Address [facility] one Number [address] [address] LABORATORIES * Thyroid Stimulating Hormone (09/24/2015 11:55 AM EPIC AMBULATORY ANALYST) Thyroid 0.11 (L) 0.47 - 4.68 uIU/mL [facility] Hormone LABORATORIES Specimen Performing Organization Address [facility] Ph one Number [address] [phone] LABORATORIES * Lipid Panel (09/24/2015 11:55 AM EPIC AMBULATORY ANALYST) Cholesterol 266 (H) 100 - 200 mg/dL [facility] LABORATORIES HDL Cholesterol 83 40 - 110 mg/dL [facility] LABORATORIES Non-HDL 183 (H) 0 - 130 mg/dL [facility] Cholesterol REGIONAL LABORATORIES Triglycerides 203 (H) 0 - 150 mg/dL [facility] LABORATORIES LDL Cholesterol 142 (H) 0 - 99 mg/dL [facility] LABORATORIES Cholesterol/HDL 3.2 0.0 - 4.5 [facility] Ratio [facility] LAB[facility]ATORIES Specimen Performing Organization Address [facility] Ph one Number [address] [address] LABORATORIES * Hemoglobin A1C (09/24/2015 11:55 AM EPIC AMBULATORY ANALYST) Hemoglobin A1C 7.0 (H) 4.0 - 5.6 % [facility] Comment: REGIONAL Non-diabetic 4.0 - LABORATORIES 5.6 % Prediabetes 5.7 - 6.4 % Diabetes >= 6.5 % Specimen Performing Organization Address City/State/Zipcode Ph one Number [facility] [address] [place] [address] LABORATORIES * Comprehensive Metabolic Panel (09/24/2015 11:55 AM EPIC AMBULATORY ANALYST) Sodium 141 133 - 147 MEQ/L [facility] Potassium 4.2 3.5 - 5.3 MEQ/L [facility] Chloride 101 96 - 112 MEQ/L [facility] Carbon Dioxide 29 20 - 32 MEQ/L [facility] Anion Gap 10 5 - 17 [facility] Calcium 9.7 8.4 - 10.5 mg/dL [facility] Glucose 141 (H) 70 - 100 mg/dL [facility] Protein Total 7.7 6.0 - 8.2 g/dL [facility] Serum [facility] LABORATORIES Albumin 4.4 3.5 - 5.0 g/dL [facility] Alkaline 100 42 - 140 IU/L [facility] Phosphatase [facility] Alanine 37 13 - 69 IU/L [facility] Aminotransferas [facility] e LABORATORIES Aspartate 28 15 - 46 IU/L [facility] LAB[facility] Bilirubin Total 0.6 0.2 - 1.3 mg/dL [facility] Blood Urea 18 7 - 26 mg/dL [facility] Nitrogen [facility] LABORATORIES Creatinine 0.7 0.4 - 1.1 mg/dL [facility] eGFR Female AA 101 60 - 200 [facility] Comment: REGIONAL Chronic Kidney Disease less LABORATORIES than 60 mL/min/1.73 sq.m Kidney failure less than 15 mL/min/1.73 sq.m eGFR Female 85 60 - 200 [facility] Non-AA Comment: REGIONAL Chronic Kidney Disease less LABORATORIES than 60 mL/min/1.73 sq.m Kidney failure less than 15 mL/min/1.73 sq.m Specimen Performing Organization Address City/[facility] Ph one Number [facility] [address] [place] [address] LABORATORIES * CBC and Diff (manual diff if necessary) (09/24/2015 11:55 AM EPIC AMBULATORY ANALYST) WBC 11.41 (H) 4.00 - 11.00 TH/uL [facility] LABORATORIES RBC 4.64 4.00 - 5.00 MIL/uL [facility] Hemoglobin 15.2 (H) 12.0 - 15.0 g/dL [facility] Hematocrit 46 (H) 36 - 45 % [facility] MCV 99 80 - 99 fL [facility] MCH 33 27 - 34 pg [facility] MCHC 33 32 - 36 % [facility] RDW 14.3 9.0 - 14.5 % [facility] Platelet Count 221 140 - 400 TH/uL [facility] MPV 9.8 9.4 - 12.3 fL [facility] Nucleated RBCs 0 0 - 0 /100 [facility] % Neutrophils 66 45 - 78 % [facility] %Lymphocytes 23 15 - 47 % [facility] %Monocytes 8 0 - 12 % [facility] %Eosinophils 2 0 - 7 % [facility] %Basophils 1 0 - 2 % [facility] % Imm Grans 0 0 - 1 % [facility] # Granulocytes 7.59 (H) 1.70 - 6.80 TH/uL [facility] LABORATORIES # Lymphocytes 2.65 1.00 - 3.30 TH/uL [facility] LABORATORIES # Monocytes 0.95 (H) 0.20 - 0.90 TH/uL [facility] LABORATORIES # Eosinophils 0.17 0.00 - 0.40 TH/uL [facility] LABORATORIES # Basophils 0.06 0.00 - 0.10 TH/uL [facility] LABORATORIES Specimen Performing Organization Address City/State/Zipcode Ph one Number [facility] [address] [place] [address] LABORATORIES * Culture, Urine (09/24/2015 11:46 AM EPIC AMBULATORY ANALYST) Culture Result [facility] LABORATORIES Isolate 1 >100,000 Cfu/ml (A) [facility] Isolate 1 Beta Hemolytic Streptococcus [facility] Group B (A) REGIONAL LABORATORIES Isolate 1 No susceptibility testing done [facility] on this isolate (A) REGIONAL LABORATORIES Specimen Performing Organization Address [facility] one Number [facility] [address] [place] [address] LABORATORIES * Urinalysis Microscopic Only (09/24/2015 11:46 AM EPIC AMBULATORY ANALYST) Microscopic RBC 1 - 5 1 - 5 [facility] Urine REG[facility]AL LAB[facility]ATORIES Microscopic WBC >40 (A) 1 - 5 [facility] Urine REG[facility]AL LAB[facility]IES Epithelial Absent Absent [facility] Cells [facility]AL LAB[facility]IES Hyaline Cast Absent Absent [facility] Bacteria Absent Absent [facility] Specimen Performing Organization Address [facility] one Number [facility] [address] [place] [address] LABORATORIES * Microalbumin Random (09/24/2015 11:46 AM EPIC AMBULATORY ANALYST) Creatinine 178.2 mg/dL [facility] Urine Random REG[facility]AL LABORATORIES Microalbumin 7.20 mg/dL [facility] mg/dl [facility] LAB[facility]ATORIES Microalbumin/Cr 40.40 (H) 0.00 - 30.00 ug/mg [facility] eatinine Ratio REG[facility]AL LABORATORIES Specimen Performing Organization Address [facility] one Number [facility] [address] [place] [address] LABORATORIES * Urinalysis Reflex (09/24/2015 11:46 AM EPIC AMBULATORY ANALYST) Appearance, Yellow [facility] Urine REGIONAL LABORATORIES Glucose Urine Negative Negative mg/dL [facility] Bilirubin Urine Negative Negative [facility] Ketones Urine Negative Negative mg/dL [facility] LABORATORIES Specific 1.018 1.001 - 1.030 [facility] [place], [place]A [facility] LABORATORIES Hemoglobin Negative Negative [facility] Urine [facility] LABORATORIES PH Urine 6.0 5.0 - 8.0 [facility] LABORATORIES Protein Urine 30 (A) Negative mg/dL [facility] Qual [facility] LABORATORIES Urobilinogen Negative Negative EU/dL [facility] Urine [facility] LABORATORIES Nitrite Urine NegativeComment: Culture Negative [facility] Ordered REGIONAL LABORATORIES Leukocyte Positive (A) Negative [facility] Esterase [facility] LABORATORIES Specimen Performing Organization Address City/State/[facility] Ph one Number [facility] [address] [place] [address] LABORATORIES documented in this encounter Visit Diagnoses Diagnosis Essential hypertension Unspecified essential hypertension Hyperlipidemia Other and unspecified hyperlipidemia Type 2 diabetes mellitus without compli cation (HCC) Elevated MCV Other abnormality of red blood cells documented in this encounter
--- OUTSIDE RECORDS SUMMARY | 2020-03-12 09:28 | XMS REPORT | Encounter Summary ---
Author Author [facility] Organization [facility] Address Unknown Phone Unavailable Care Team Providers Care Mailer Name Role Phone Ebony Sahrp MD PCP Encounter Details Care Team Description Date Type Department Ebony Sharp MD [address] [facility] [address] [place] [address] 11/07/2015 [facility]ation [facility] - East [address] [facility] [address] [place] [address] Social History Date Tobacco Use [...]
--- OUTSIDE RECORDS SUMMARY | 2020-03-12 09:28 | XMS REPORT | Encounter Summary ---
Author Author [facility] Organization [facility] Address Unknown Phone Unavailable Care Team Providers Care Strike Off Machine Operator Name Role Phone Ebony Sharp MD PCP Encounter Details Care Team Description Date Type Department Eb[facility] Sharp [facility] [address] [facility] [address] [place] [address] Health care maintenance (Primary Dx) 09/25/2015 Orders Only [facility] Primar y Care - East [address] [facility] [address] [place], [place] [phone] Social History Date Tobacco Use Types Packs/Day [...] filedocumented as of this encounter Results * T4 Free (12/06/2015 12:42 PM CDT) T4 Free 1.1 0.8 - 2.2 ng/dL [facility] LABORATORIES Specimen Blood Performing Organization Address City/[facility] Ph one Number [facility] [address] [place] [address] LABORATORIES * Thyroid Stimulating Hormone (12/06/2015 12:42 PM CDT) Thyroid 0.27 (L) 0.47 - 4.68 uIU/mL [facility] Hormone LABORATORIES Specimen Blood Performing Organization Address City/State/Zipcode Ph one Number [address] [address] LABORATORIES documented in this encounter Visit Diagnoses Diagnosis Health care maintenance documented in this encounter
--- OUTSIDE RECORDS SUMMARY | 2020-03-12 09:28 | XMS REPORT | Encounter Summary ---
Author Author [facility] Organization [facility] Address Unknown Phone Unavailable Care Team Providers Care Farm Mechanic Apprentice Name Role Phone Ebony Sharp MD PCP Encounter Details Care Team Description Date Type Department Ebony Sharp MD [address] [facility] [address] [place], [place] [phone] 11/25/2015 [facility] [address] [facility] [address] [place] [address] Social History Date Tobacco Use [...]
--- OUTSIDE RECORDS SUMMARY | 2020-03-12 09:28 | XMS REPORT | Encounter Summary ---
Author Author [facility] Organization [facility] Address Unknown Phone Unavailable Care Team Providers Care Addictions Counselor Assistant Name Role Phone Ebony Sharp MD PCP Reason for Visit * Reason Comments Other Encounter Details Care Team Description Date Type Department Ebony Sharp MD [address] [facility] [address] [place] [address] Other 11/29/2015 Refill [facility] y [facility] [address] [facility] [address] [place], [place] [phone] Social History Date Tobacco Use Types Packs/Day [...]
--- OUTSIDE RECORDS SUMMARY | 2020-03-12 09:28 | XMS REPORT | Encounter Summary ---
Author Author [facility] Address Unknown Phone Unavailable Care Team Providers Care [employer] Dean Name Role Phone Ebony Sharp MD PCP Reason for Visit * Reason Comments Other Encounter Details Care Team Description Date Type Department Rc Rice MD no forwarding address Other 12/24/2015 Refill [facility] y [facility] [address] [facility] [address] [place], [place] [phone] Social History Date Tobacco Use Types Packs/Day [...]
--- OUTSIDE RECORDS SUMMARY | 2020-03-12 09:28 | XMS REPORT | Encounter Summary ---
Author Author [facility] Organization [facility] Address Unknown Phone Unavailable Care Team Providers Care Neon Tube Pumper Name Role Phone Ebony Sharp MD PCP Encounter Details Care Team Description Date Type Department Ebony Sharp MD [address] [facility] [address] [place], [place] [phone] 12/26/2015 Documentation [facility] y [facility] [address] [facility] [address] [place] [address] Social History Date Tobacco Use [...]
--- OUTSIDE RECORDS SUMMARY | 2020-03-12 09:28 | XMS REPORT | Encounter Summary ---
Author Author [facility] Organization [facility] Address Unknown Phone Unavailable Care Team Providers Care Stretcher Helper Name Role Phone Ebony Sharp MD PCP Encounter Details Care Team Description Date Type Department Ebony Sharp MD [address] [facility] [address] [place], [place] [phone] Health care maintenance (Primary Dx) 12/06/2015 Lab [facility] Primar y Care - [facility] [address] [facility] [address] [place], [place] [phone] Social History Date Tobacco Use Types Packs/Day [...] T4 Free 1.1 0.8 - 2.2 ng/dL [facility] LABORATORIES Specimen Blood Performing Organization Address City/State/Zipcode Ph one Number [facility] [address] [place] [address] LABORATORIES * Thyroid Stimulating Hormone (12/06/2015 12:42 PM CDT) Thyroid 0.27 (L) 0.47 - 4.68 uIU/mL [facility] Hormone LABORATORIES Specimen Blood Performing Organization Address City/State/Zipcode Ph one Number [facility] [address] [place] [address] LABORATORIES documented in this encounter Visit Diagnoses Diagnosis Health care maintenance documented in this encounter
--- OUTSIDE RECORDS SUMMARY | 2020-03-12 09:28 | XMS REPORT | Encounter Summary ---
Author Author [facility] Organization [facility] Address Unknown Phone Unavailable Care Team Providers Care Grip Boss Name Role Phone Ebony Sharp MD PCP Encounter Details Care Team Description Date Type Department Ebony Sharp MD [address] [facility] [address] [place] [address] 10/08/2015 Documentation [facility] y [facility] [address] [facility] [address] [place] [address] Social History Date Tobacco Use [...]
--- OUTSIDE RECORDS SUMMARY | 2020-03-12 09:28 | XMS REPORT | Encounter Summary ---
Author Author [facility] Organization [facility] Address Unknown Phone Unavailable Care Team Providers Care Sex Offender Treatment Professional Name Role Phone Ebony Sharp MD PCP Encounter Details Care Team Description Date [place] [address] [place], [place] [id number] 11/29/2015 Documentation [facility] [address] [place] [address] Social History Date Tobacco Use Types Packs/Day [...]
--- OUTSIDE RECORDS SUMMARY | 2020-03-12 09:28 | XMS REPORT | Encounter Summary ---
Author Author [facility] Organization [facility] Address Unknown Phone Unavailable Care Team Providers Care Pole Peeling Machine Operator Name Role Phone Ebony Sharp MD PCP Reason for Visit * Reason Comments Medication Refill Encounter Details Care Team Description Date Type Department Ebony Sharp MD [address] [facility] [address] [place], [place] [phone] Medication Refill 12/18/2015 Refill [facility] Primar y Care - East [address] [facility] [address] [place], [place] [phone] Social History Date Tobacco Use Types Packs/Day [...]
--- OUTSIDE RECORDS SUMMARY | 2020-03-12 09:28 | XMS REPORT | Encounter Summary ---
Author Author [facility] Organization [facility] Address Unknown Phone Unavailable Care Team Providers Care Dispatch Manager Name Role Phone Ebony Sharp MD PCP Encounter Details Care Team Description Date Type Department Ebony Sharp MD [address] [facility] [address] [place], [place] [phone] Acute cystitis without hematuria (Primar y Dx) 10/04/2015 Orders Only [facility] Primar y Care - East [address] [facility] [facility] [address] [place] [address] Social History Date Tobacco Use Types [...]
--- OUTSIDE RECORDS SUMMARY | 2020-03-12 09:28 | XMS REPORT | Encounter Summary ---
Author Author [facility] Organization [facility] Address Unknown Phone Unavailable Care Team Providers Care Head Mva Reactor Operator Name Role Phone Ebony Sharp MD PCP Reason for Visit * Reason Comments Medication Refill Encounter Details Care Team Description Date Type Department Ebony Sharp MD [address] [facility] [address] [place], [place] [id number] Medication Refill 10/15/2015 Telephone [facility] Care - East [address] [facility] [address] [place], [place] [phone] Social History Date Tobacco Use Types Packs/Day [...] Comfort Alatorre MA - 10/16/2015 12:45 PM STORAGE FACILITY RENTAL CLERK Enter prescription AGE FACILITY RENTAL CLERK * Telephone Encounter - Tiubrcio Wagoner MD - 10/15/2015 5:08 PM STORAGE FACILITY RENTAL CLERK Okay to fill AGE FACILITY RENTAL CLERK * Telephone Encounter - Aniya Rosa MA - 10/15/2015 4:55 PM STORAGE FACILITY RENTAL CLERK Patient is new with Dr Sharp, she is requesting a rescue inhaler. Pro air inhal er. She said she had one with her previous Dr and needs a new rx. AGE FACILITY RENTAL CLERK documented in this encounter Plan of Treatment Not on filedocumented as of this encounter Visit Diagnoses Not on filedocumented in this encounter
--- OUTSIDE RECORDS SUMMARY | 2020-03-12 09:28 | XMS REPORT | Encounter Summary ---
Author Author [facility] Organization [facility] Address Unknown Phone Unavailable Care Team Providers Care Bead Wrapper Name Role Phone Ebony Sharp MD PCP Reason for Visit * Reason Comments Chest pain feels realy tired Encounter Details Care Team Description Date Type Department Primo Huddleston RN ACNP [address] [facility] [address] [place] [address] Acute chest pain (Primary Dx) 12/31/2015 Office Visit [facility] y [facility] [address] [facility] [address] [place] [address] Social History Date Tobacco Use [...] - - Height 42.58 09/14/2015 5:31 AM CLINICAL PROGRAM DIRECTOR Body Mass Index documented in this encounter Progress Notes * Primo Huddleston RN ACNP - 12/31/2015 1:54 PM CDT Caren Do [facility] 1950 [id number] Reason For Visit: Chief Complaint Patient presents [...] may contain nonclinical errors using voice recognition [employer] software. documented in this encounter Plan of Treatment Not on filedocumented as of this encounter Visit Diagnoses Diagnosis Acute chest pain Unspecified chest pain documented in this encounter
--- OUTSIDE RECORDS SUMMARY | 2020-03-12 09:28 | XMS REPORT | Encounter Summary ---
Author Author [facility] Organization [facility] Address Unknown Phone Unavailable Care Team Providers Care Restaurant Recruiter Name Role Phone Ebony Sharp MD PCP Reason for Visit * Diagnostic Imaging (Routine) Referred By Contact Referred To Contact Status Reason Specialty Diagnoses / Procedures Ebony Sharp MD [address] [facility] [address] [place] [address] [address] [place] [address] Closed Radiology Diagnoses Vaginal discharge P rocedures US Pelvis complete US Pelvis complete and transvaginal P Encounter Details Care Team Description Date Type Department Ebony Sharp MD 20 [facility] [address] [place] [id number] Vaginal discharge 10/09/2015 [facility] [address] [place] [phone] Social History Date Tobacco Use Types Packs/Day [...] of this encounter Progress Notes * Teo Geogre MD - 10/10/2015 5:03 PM BREAD DISTRIBUTOR Quick Note: Normal pelvic ultrasound xray result and please notify. D DISTRIBUTOR documented in this encounter Plan of Treatment Not on filedocumented as of this encounter Procedures Comments Procedure Name Priority Date/Time Associated Diag nosis US PELVIS TRANSABD Routine 10/09/2015 Vaginal dis charge COMPLETE 12:40 PM BREAD DISTRIBUTOR documented in this encounter Results * US Pelvis complete (10/09/2015 12:40 PM BREAD DISTRIBUTOR) Specimen Impressions Performed At Impression: [facility] No pelvic mass or fluid collection. Hysterectomy. READING SITE: [facility] Narrative Performed At Patient: ISIAH PATTEN Sex#: F # [id number] Jose#: Location: [facility] Procedure Requested: [id number] US PELVI S COMPLETE Reason for Exam: Vaginal discharge Exam Ordered: 10/09/2015 12 22 Exam Date/Time: 10/09/2015 124 0 Check-in Date/Time: 10/09/2015 1227 US PELVIS COMPLETE Indication: Vaginal discharge Technique: Complete pelvic ultrasound performed. Patient refused transvaginal ultrasound Findings: Hysterectomy. Ovaries are not visualized. No pelvic mass or ascites. No pelvic fluid collection. Procedure Note Interface, Rad Results In - 10/09/2015 1:19 PM BREAD DISTRIBUTOR Patient: ISIAH PATTEN Sex#: F # [id number] Jose#: Location: [facility] Procedure Requested: [id number] US PELVIS COMPLETE Reason for Exam: Vaginal discharge Exam Ordered: 10/09/2015 1222 Exam Date/Time: 10/09/2015 1240 Check-in Date/Time: 10/09/2015 1227 US PELVIS COMPLETE Indication: Vaginal discharge Technique: Complete pelvic ultrasound performed. Patient refused transvaginal ultrasound Findings: Hysterectomy. Ovaries are not visualized. No pelvic mass or ascites. No pelvic fluid collection. Impression: No pelvic mass or fluid collection. Hysterectomy. READING SITE: [facility] Performing Organization Address City/State/Zipcode Ph one Number L[facility]I documented in this encounter Visit Diagnoses Diagnosis Vaginal discharge Leukorrhea, not specified as infective documented in this encounter
--- OUTSIDE RECORDS SUMMARY | 2020-03-12 09:28 | XMS REPORT | Encounter Summary ---
Author Author [facility] Organization [facility] Address Unknown Phone Unavailable Care Team Providers Care Dot Compliance Specialist Name Role Phone Ebony Sharp MD PCP Reason for Visit * Reason Comments Chest pain Pt complains of left sided chest pain and tightness x5 days. States it got worse today. Encounter Details Care Team Description Date Type Department Luciano Funes MD [address] [facility] Dept [place] [address] [phone] Acute chest pain (Primary Dx); Essential hypertension 12/31/2015 Emergency [facility] [address] [place], [place] [phone] Social History Date Tobacco Use Types Packs/Day [...] Swelling, pain or redness in one leg [id number] [employer] [address] [place] [address] 7. All rights reserved. This information is [...] as of this encounter Consult Notes * OrlandoLouisa esqueda RN - 12/31/2015 4:13 PM CDT Associated Order(s): IP CONSULT TO VASCULAR ACCESS TEAM Consult received for PIV. See IV flow sheet documented in this encounter ED Notes * Luciano Funes MD - 12/31/2015 3:16 PM CDT 12/31/2015 [facility] History Chief Complaint Patient presents with Chest [...] Results * Troponin (12/31/2015 2:59 PM CDT) Pathologist [facility] [place] Troponin <0.01 0.00 - 0.03 ng/mL [facility] Comment: [facility] Troponin Value [facility] Interpretation 0.00 - 0.03 Healthy 0.04 - 0.12 Increased Cardiac Risk >0.12 Myocardial Infarction Troponin may not become elevated until 6 to 8 hours after onset of symptoms. Specimen Blood Performing Organization Address City/[facility] Ph one Number [facility] [address] [facility] [place], [place] [phone] [facility] [address] [facility] [place] [address], [place] [phone] [facility] * Prothrombin Time/INR - ONLY if patient is on Warfarin (12/31/2015 2:59 PM CDT) Pathologist [facility] Protime 11.8 11.4 - 15.0 sec [facility] INR 0.9 0.8 - 1.2 [facility] Specimen Blood Performing Organization Address City/State/[facility] Ph one Number [facility] [address] [facility], [place] [phone] [facility] [address] [facility] [place] [address], [place] [phone] [facility] * CBC and Diff (manual diff if necessary) (12/31/2015 2:59 PM CDT) WBC 10.31 4.00 - 11.00 TH/uL [facility] RBC 4.38 4.00 - 5.00 MIL/uL [facility] Hemoglobin 14.7 12.0 - 15.0 g/dL [facility] Hematocrit 43 36 - 45 % [facility] MCV 99 80 - 99 fL [facility] MCH 34 27 - 34 pg [facility] MCHC 34 32 - 36 % [facility] RDW 13.5 9.0 - 14.5 % [facility] Platelet Count 166 140 - 400 TH/uL [facility] MPV 9.6 9.4 - 12.3 fL [facility] % Neutrophils 52 45 - 78 % [facility] %Lymphocytes 35 15 - 47 % [facility] %Monocytes 9 0 - 12 % [facility] %Eosinophils 4 0 - 7 % [facility] %Basophils 0 0 - 2 % [facility] # Granulocytes 5.33 1.7 - 6.8 TH/uL [facility] # Lymphocytes 3.60 (H) 1.0 - 3.3 TH/uL [facility] # Monocytes 0.93 (H) 0.2 - 0.9 TH/uL [facility] # Eosinophils 0.41 (H) 0.0 - 0.4 TH/uL [facility] # Basophils 0.04 0.0 - 0.1 TH/uL [facility] Specimen Blood Performing Organization Address City/State/Zipcode Ph one Number [facility] [address] [facility] [place] [address] [facility] [address] [facility] [address], [facility] * Comprehensive Metabolic Panel (12/31/2015 2:59 PM CDT) Sodium 142 133 - 147 MEQ/L [facility] Potassium 3.9 3.5 - 5.3 MEQ/L [facility] Chloride 97 96 - 112 MEQ/L [facility] Carbon Dioxide 35 (H) 20 - 32 MEQ/L [facility] Anion Gap 10 5 - 17 [facility] Calcium 9.0 8.4 - 10.5 mg/dL [facility] Glucose 87 70 - 100 mg/dL [facility] Protein Total 8.3 (H) 6.0 - 8.2 g/dL [facility] Serum [facility] Albumin 4.6 3.5 - 5.0 g/dL [facility] Alkaline 84 42 - 140 IU/L [facility] Phosphatase [facility] Alanine 16 13 - 69 IU/L [facility] Aminotransferas [facility] e [facility] Aspartate 26 15 - 46 IU/L [facility] Aminotransferas [facility] e [facility] Bilirubin Total 0.4 0.2 - 1.3 mg/dL [facility] Blood Urea 13 7 - 26 mg/dL [facility] Nitrogen [facility] Creatinine 0.8 0.4 - 1.1 mg/dL [facility] eGFR Female AA 87 60 - 200 [facility] Comment: [facility] Chronic Kidney Disease less [facility] than 60 mL/min/1.73 sq.m Kidney failure less than 15 mL/min/1.73 sq.m eGFR Female 72 60 - 200 [facility] Non-AA Comment: [facility] Chronic Kidney Disease less [facility] than 60 mL/min/1.73 sq.m Kidney failure less than 15 mL/min/1.73 sq.m Specimen Blood Performing Organization Address City/State/Zipcode Ph one Number [facility] [address] [place] [address] [facility] [address] [facility] [place] [address], [facility] * XR Chest single view frontal (12/31/2015 2:55 PM CDT) Specimen Impressions Performed At IMPRESSION: LEVI No acute cardiopulmonary process. ATTESTATION STATEMENT: The Staff Radiologist has personally re viewed the images and dictated, reviewed, or edited the final report. READING SITE: [facility] The Staff Radiologist has personally re viewed the images and dictated, reviewed, or edited the final report. Narrative Performed At Patient: ISIAH BENÍTEZ YAIMAJEFFREY Sex#: F # [id number] Jose#: [id number] Location: [facility] SED-21 Procedure Requested: [id number] XR CHEST SINGLE VIEW FRONTAL Reason for [...] ISIAH BENÍTEZ Sex#: F # [id number] Jose#: [id number] Location: [facility] Procedure Requested: [id number] XR CHEST SINGLE VIEW FRONTAL Reason for [...] or edited the final report. READING SITE: [facility] The Staff Radiologist has personally reviewed the images and dictated, reviewed, or edited the final report. Performing Organization Address City/[facility] one Number LEVI * Electrocardiogram (ECG) (12/31/2015 2:02 PM CDT) Specimen Narrative Performed At [facility] ED Test Date: 2015-12-31 Pat Name: ISIAH JACKELIN Department: ERS Room: Gender: Female Retread Mold Operator: [id number] : 1950 Requested By: LUCIANO FUNES Order Number: [id number] Reading MD: Zackary Lamb Measurements Intervals [place] Rate: 70 P: 43 NH: 140 QRS: 50 QRSD: 100 T: 55 QT: 412 QTc: 445 Interpretive Statements SINUS RHYTHM Compared to ECG 09/14/2015 05:33:24 No significant changes Electronically Signed On 01-01-2016 10:1 5:58 CDT by Zackary Lamb Performing Organization Address [facility] one Number [email or web address] documented in this encounter Visit Diagnoses Diagnosis Acute chest pain Unspecified chest pain Essential hypertension Unspecified essential hypertension documented in this encounter Administered Medications Action Date Dose Rate Site Medication Order MAR Action 12/31/2015 2:41 PM CDT 324 mg aspirin chewable tablet 324 mg Given 324 mg, Oral, Once, 12/31/15 at 1439 , For 1 dose, If not given/taken PROJECT CONSULTANT and chart., 12/31/2015 3:04 PM CDT 50 mcg fentaNYL (SUBLIMAZE) 50 mcg/mL injection Given 50 mcg 50 mcg, Intravenous, Once, 12/31/15 at 1504, For 1 dose 12/31/2015 3:47 PM CDT 15 mg ketorolac (TORADOL) injection 15 mg Given 15 mg, Intravenous, Once, 12/31/15 a t 1548, For 1 dose documented in this encounter
--- OUTSIDE RECORDS SUMMARY | 2020-03-12 09:28 | XMS REPORT | Encounter Summary ---
Author Author [facility] Organization [facility] Address Unknown Phone Unavailable Care Team Providers Care Ham Trimmer Name Role Phone Ebony Sharp MD PCP Encounter Details Care Team Description Date Type Department Ebony Sharp MD [address] [facility] [address] [place], [place] [phone] 12/20/2015 Refill [facility] Care - East [address] [facility] [address] [place] [address] Social History Date Tobacco Use [...]
--- OUTSIDE RECORDS SUMMARY | 2020-03-12 09:28 | XMS REPORT | Encounter Summary ---
Author Author [facility] Organization [facility] Address Unknown Phone Unavailable Care Team Providers Care Business Liaison Officer Name Role Phone Ebony Sharp MD PCP Encounter Details Care Team Description Date Type Department Ebony Sharp MD [address] [facility] [address] [place], [place] [phone] 10/23/2015 Documentation [facility] y [facility] - [facility] [address] [facility] [address] [place] [address] Social History Date Tobacco Use [...]
[2020-03-12 09:29] LABS: CREATININE SERUM 1.08 MG/DL (0.60-1.30); GFR ESTIMATED > 60
--- OUTSIDE RECORDS SUMMARY | 2020-03-12 09:29 | XMS REPORT | Encounter Summary ---
Author Author [facility] Organization [facility] Address Unknown Phone Unavailable Care Team Providers Care Scientific Writer Name Role Phone Yrn Sharp MD PCP Reason for Referral * Diagnostic Imaging (Routine) Referred By Contact Referred To Contact Status Reason Specialty Diagnoses / Procedures Yrn Sharp MD [address] [facility] [address] [place] [address] Sle Cv Lab [address] [facility] [place] [id number] Closed Cardiology Diagnoses Essential hypertension P rocedures Echo Complete with Doppler and Color Flow * Consultation (Elective) Referred By Contact Referred To Contact Status Reason Specialty Diagnoses / Procedures Yrn Sharp MD [address] [facility] [address] [place] [address] Demond Jose MD [address] [facility] [address] [place] [address] Closed Specialty Services Pain Management Diagnoses Required Chronic pain Reason for Visit * Reason Comments Diabetes Hypertension Encounter Details Care Team Description Date Type Department Yrn Sharp MD [address] [facility] [address] [place] [address] [phone] Type 2 diabetes mellitus without complic ation (HCC) (Primary Dx); COPD (chronic obstructive pulmonary disease) (HCC); Essential hypertension; Hyperlipidemia; Chronic pain; Elevated MCV; MATA (generalized anxiety disorder); Hair loss; Vaginal discharge 09/24/2015 Office Visit [facility] [address] [facility] [address] [place] [address] Social History Date Tobacco Use Types Packs/Day [...] Comments Vital Sign 114/82 09/24/2015 10:50 AM SLOT SERVICE SPECIALIST LAS Blood Pressure 102 09/24/2015 10:50 AM SLOT SERVICE SPECIALIST Regular Pulse - - Temperature - - Respiratory Rate - - Oxygen Saturation - - Inhaled Oxygen Concentration 90.3 kg (199 lb) 09/24/2015 10:50 AM SLOT SERVICE SPECIALIST Weight - - Height 38.86 09/14/2015 5:31 AM SLOT SERVICE SPECIALIST Body Mass Index documented in this encounter Progress Notes * Yrn Sharp MD - 09/24/2015 11:07 AM SLOT SERVICE SPECIALIST Patient ID: Isiah Benítez is a 65 [...] She has had it for a year. SERVICE SPECIALIST documented in this encounter Plan of [...] ISIAH BENÍTEZ Date: 05/08/2016 07:34 Chart #: [id number] : 1950 Location: [facility] OP Sono: hannah Age: 65 Gender: F Referring: YRN SHARP MD Room #: OP Fellow: Indication:Essential (primary) hypert ension Procedure: 97987 Complete Echo 2D/Col orflow/Doppler BP: 140 / [...] ISIAH BENÍTEZ Date: 05/08/2016 07:34 Chart #: [id number] : 1950 Location: [facility] OP Sono: hannah Age: 65 Gender: F Referring: YRN SHARP MD Room #: OP Fellow: Indication:Essential (primary) hypertension Procedure: [id number] Complete Echo 2D/Colorflow/Doppler BP: 140 / 86 [...] 08 May 2016 11:13 Performing Organization Address [facility] Ph one Number PROSOLV * Vitamin B12 (09/24/2015 11:55 AM SLOT SERVICE SPECIALIST) VITAMIN B12 436 239 - 931 pg/mL [facility] Specimen Blood Performing Organization Address City/[facility] Ph one Number [address] [address] LABORATORIES * Thyroid Stimulating Hormone (09/24/2015 11:55 AM SLOT SERVICE SPECIALIST) Thyroid 0.11 (L) 0.47 - 4.68 uIU/mL [facility] Hormone LABORATORIES Specimen Performing Organization Address [facility] one Number [address] [address] LABORATORIES * Lipid Panel (09/24/2015 11:55 AM SLOT SERVICE SPECIALIST) Cholesterol 266 (H) 100 - 200 mg/dL [facility] HDL Cholesterol 83 40 - 110 mg/dL [facility] Non-HDL 183 (H) 0 - 130 mg/dL [facility] Cholesterol [facility] Triglycerides 203 (H) 0 - 150 mg/dL [facility] LDL Cholesterol 142 (H) 0 - 99 mg/dL [facility] Cholesterol/HDL 3.2 0.0 - 4.5 [facility] Ratio [facility] Specimen Performing Organization Address [facility] one Number [address] [address] LABORATORIES * Hemoglobin A1C (09/24/2015 11:55 AM SLOT SERVICE SPECIALIST) Hemoglobin A1C 7.0 (H) 4.0 - 5.6 % [facility] Comment: REGIONAL Non-diabetic 4.0 - LABORATORIES 5.6 % Prediabetes 5.7 - 6.4 % Diabetes >= 6.5 % Specimen Performing Organization Address [facility] one Number [address] [address] LABORATORIES * Comprehensive Metabolic Panel (09/24/2015 11:55 AM SLOT SERVICE SPECIALIST) Sodium 141 133 - 147 MEQ/L [facility] Potassium 4.2 3.5 - 5.3 MEQ/L [facility] Chloride 101 96 - 112 MEQ/L [facility] Carbon Dioxide 29 20 - 32 MEQ/L [facility] Anion Gap 10 5 - 17 [facility] Calcium 9.7 8.4 - 10.5 mg/dL [facility] Glucose 141 (H) 70 - 100 mg/dL [facility] Protein Total 7.7 6.0 - 8.2 g/dL [facility] Serum [facility] Albumin 4.4 3.5 - 5.0 g/dL [facility] Alkaline 100 42 - 140 IU/L [facility] Phosphatase [facility] Alanine 37 13 - 69 IU/L [facility] Aminotransferas [facility] e LABORATORIES Aspartate 28 15 - 46 IU/L [facility] Bilirubin Total 0.6 0.2 - 1.3 mg/dL [facility] Blood Urea 18 7 - 26 mg/dL [facility] Nitrogen [facility] Creatinine 0.7 0.4 - 1.1 mg/dL [facility] eGFR Female AA 101 60 - 200 [facility] Comment: REGIONAL Chronic Kidney Disease less LABORATORIES than 60 mL/min/1.73 sq.m Kidney failure less than 15 mL/min/1.73 sq.m eGFR Female 85 60 - 200 [facility] Non-AA Comment: REGIONAL Chronic Kidney Disease less LABORATORIES than 60 mL/min/1.73 sq.m Kidney failure less than 15 mL/min/1.73 sq.m Specimen Performing Organization Address City/State/[facility] Ph one Number [address] [address] LABORATORIES * CBC and Diff (manual diff if necessary) (09/24/2015 11:55 AM SLOT SERVICE SPECIALIST) WBC 11.41 (H) 4.00 - 11.00 TH/uL [facility] RBC 4.64 4.00 - 5.00 MIL/uL [facility] Hemoglobin 15.2 (H) 12.0 - 15.0 g/dL [facility] Hematocrit 46 (H) 36 - 45 % [facility] MCV 99 80 - 99 fL [facility] MCH 33 27 - 34 pg [facility] MCHC 33 32 - 36 % [facility] RDW 14.3 9.0 - 14.5 % [facility] Platelet Count 221 140 - 400 TH/uL [facility] MPV 9.8 9.4 - 12.3 fL [facility] Nucleated RBCs 0 0 - 0 /100 [facility] % Neutrophils 66 45 - 78 % [facility] %Lymphocytes 23 15 - 47 % [facility] %Monocytes 8 0 - 12 % [facility] %Eosinophils 2 0 - 7 % [facility] %Basophils 1 0 - 2 % [facility] % Imm Grans 0 0 - 1 % [facility] # Granulocytes 7.59 (H) 1.70 - 6.80 TH/uL [facility] # Lymphocytes 2.65 1.00 - 3.30 TH/uL [facility] # Monocytes 0.95 (H) 0.20 - 0.90 TH/uL [facility] # Eosinophils 0.17 0.00 - 0.40 TH/uL [facility] # Basophils 0.06 0.00 - 0.10 TH/uL [facility] Specimen Performing Organization Address City/State/Zipcode Ph one Number [facility] [address] [place] [address] LABORATORIES documented in this encounter Visit Diagnoses [...]
--- OUTSIDE RECORDS SUMMARY | 2020-03-12 09:29 | XMS REPORT | Encounter Summary ---
Author Author [facility] Organization [facility] Address Unknown Phone Unavailable Care Team Providers Care Rounding Machine Tender Name Role Phone Ebony Sharp [...] Type Department Chava Kelly MD [address] [facility] [place] [address] Maggie Yap DO [address] [place] [address] [phone] Pleuritic chest pain (Primary Dx); Allergic reaction, initial encounter 09/05/2015 Emergency [facility] [address] [place] [address] Social History Date Tobacco Use [...] Comments Vital Sign 137/82 09/05/2015 8:16 PM HAUL DRIVER Blood Pressure 80 09/05/2015 8:16 PM HAUL DRIVER Pulse 36.4 C (97.5 F) 09/05/2015 3:52 PM HAUL DRIVER Temperature 17 09/05/2015 8:16 PM HAUL DRIVER Respiratory Rate 94% 09/05/2015 8:16 PM HAUL DRIVER Oxygen Saturation - - Inhaled Oxygen Concentration 92.5 kg (204 lb) 09/05/2015 3:52 PM HAUL DRIVER Weight 152.4 cm (5') 09/05/2015 3:52 PM HAUL DRIVER Height 39.84 09/05/2015 3:52 PM HAUL DRIVER Body Mass Index documented in this encounter [...] an antihistamine available at drug and darryl [employer] stores. Unless a prescription antihistamine was given, [...] Colored fluid draining from the wound [employer] [address] [place] [address] 636 7. All rights reserved. This information is [...] Swelling, pain or redness in one leg 5132-1414 [employer] [address] [place] [address] 8860 7. All rights reserved. This information is [...] * Wayne Rutherford - 09/05/2015 7:27 PM HAUL DRIVER Patient back in room from V/Q scan, sitting up in bed eating, patient has no c/o or needs at this time will continue to monitor. DRIVER * Wayne Rutherford - 09/05/2015 6:29 PM HAUL DRIVER Diet tray ordered for patient, okay per Dr. Yap. Patient back in bed given wa rm blanket, has no other needs at this time. Will continue to monitor. DRIVER Wayne Griggs - 09/05/2015 6:16 PM HAUL DRIVER Patient ambulated up to BR without any difficulty. DRIVER Wayne Griggs - 09/05/2015 5:11 PM HAUL DRIVER PICC nurse was unsuccessful obtaining IV access in patient's AC, will notify Dr. Yap. DRIVER Wayne Griggs - 09/05/2015 4:50 PM HAUL DRIVER PICC nurse called and asked to help start IV in AC space for CTA exam. DRIVER Maggie Blanco DO - 09/05/2015 4:27 PM HAUL DRIVER 09/05/2015 [facility] History Chief Complaint Patient presents [...] tongue swelling after eating some papaya in [place] mix toda y. Symptoms started around 2:30 [...] IMPRESSION: No acute cardiopulmonary process. READING SITE: [facility] Lung Scan VQ (Results Pending) ED [...] encounter ALLERGIC REACTION Maggie Yap DO 09/05/151948 DRIVER * Mary Jo Rodas, RN - 09/05/2015 3:56 PM HAUL DRIVER PT HERE VIA EMS C/O CHEST/EPIGASTRIC PAIN [...] C/ O SOME SOA, DENIES OTHER COMPLAINT. DRIVER * Calvin Garcia - 09/05/2015 3:48 PM HAUL DRIVER Bed: [facility]- Expected date: Expected time: Means of arrival: Comments: 65F chest pain DRIVER documented in this encounter Plan of Treatment Not on filedocumented as of this encounter Procedures Comments Procedure Name Priority Date/Time Associated Diag nosis LAB SUMMARY 09/07/2015 5:31 AM HAUL DRIVER NM LUNG SCAN VQ STAT 09/05/2015 7:09 PM HAUL DRIVER TROPONIN STAT 09/05/2015 4:07 PM HAUL DRIVER PROTHROMBIN TIME/INR STAT 09/05/2015 4:07 PM HAUL DRIVER D DIMER STAT 09/05/2015 4:07 PM HAUL DRIVER COMPREHENSIVE METABOLIC STAT 09/05/2015 PANEL 4:07 PM HAUL DRIVER CBC AND DIFF (MANUAL DIFF STAT 09/05/2015 IF NECESSARY) 4:07 PM HAUL DRIVER XR CHEST SINGLE VIEW STAT 09/05/2015 FRONTAL 3:59 PM HAUL DRIVER PULSE OXIMETRY, STAT 09/05/2015 CONTINUOUS 3:51 PM HAUL DRIVER ECG STAT 09/05/2015 3:51 PM HAUL DRIVER documented in this encounter Results * LAB SUMMARY (09/07/2015 5:31 AM HAUL DRIVER) Narrative Performed At This result has an attachment that is n ot available. Ordered by an unspecified provider. * NM Lung Scan VQ (09/05/2015 7:09 PM HAUL DRIVER) Specimen Impressions Performed At Impression: Low probability of pulmonary embolism. M JANE ATTESTATION STATEMENT: The Staff Radiologist has personally re viewed the images and dictated, reviewed, or edited the final report. READING SITE: [facility]. Narrative Performed At Patient: ISIAH BENÍTEZ Sex#: F # [id number] Jose#: Location: [place] [address] Procedure Requested: [id number] NM LUNG SCAN VQ Reason for Exam: [...] Rad Results In - 09/06/2015 7:24 AM HAUL DRIVER Patient: ISIAH BENÍTEZ Sex#: F # [id number] Jose#: Location: [facility] SED-22 Procedure Requested: [id number] NM LUNG SCAN VQ Reason for Exam: pos d dimer, concern for pe, can't get good iv for angio Exam Ordered: 09/05/2015 1716 Exam Date/Time: 09/05/2015 1909 Check-in Date/Time: 09/05/2015 1826 NM LUNG SCAN [...] or edited the final report. READING SITE: [facility]. Performing Organization Address [facility] one Number [place]I * D Dimer (09/05/2015 4:07 PM HAUL DRIVER) Pathologist [facility] D Dimer 1.26 (H)Comment: Cutoff value 0.00 - 0.40 ug/m L [facility] for exclusion of venous [facility] thromboembolism is <0.40 ug/mL [facility]. Specimen Blood Performing Organization Address [facility] Ph one [facility] [address] [place] [facility] [place] [place] [id number] [facility] [address] [place] [facility] [place] [address], [facility] * Troponin (09/05/2015 4:07 PM HAUL DRIVER) Pathologist [facility] Troponin <0.01 0.00 - 0.03 ng/mL [facility] Comment: [facility] Troponin Value [facility] Interpretation 0.00 - 0.03 Healthy 0.04 - 0.12 Increased Cardiac Risk >0.12 Myocardial Infarction Troponin may not become elevated until 6 to 8 hours after onset of symptoms. Specimen Blood Performing Organization Address City/State/Zipcode Ph one Number [facility] [address] [facility] [place] [address] [facility] [address] [facility] [place] [address], [facility] * Prothrombin Time/INR - ONLY if patient is on Warfarin (09/05/2015 4:07 PM HAUL DRIVER) Pathologist [facility] Protime 13.2 11.4 - 15.0 sec [facility] INR 1.0 0.8 - 1.2 [facility] Specimen Blood Performing Organization Address City/State/[facility] Ph one Number [facility] [address] [facility] [place] [address] [facility] [address] [facility] [place] [address], [facility] * CBC and Diff (manual diff if necessary) (09/05/2015 4:07 PM HAUL DRIVER) Pathologist [facility] WBC 10.96 4.00 - 11.00 TH/uL [facility] RBC 4.51 4.00 - 5.00 MIL/uL [facility] Hemoglobin 14.8 12.0 - 15.0 g/dL [facility] Hematocrit 43 36 - 45 % [facility] MCV 96 80 - 99 fL [facility] MCH 33 27 - 34 pg [facility] MCHC 34 32 - 36 % [facility] RDW 13.8 9.0 - 14.5 % [facility] Platelet Count 185 140 - 400 TH/uL [facility] MPV 9.9 9.4 - 12.3 fL [facility] % Neutrophils 54 45 - 78 % [facility] %Lymphocytes 31 15 - 47 % [facility] %Monocytes 9 0 - 12 % [facility] %Eosinophils 5 0 - 7 % [facility] %Basophils 1 0 - 2 % [facility] # Granulocytes 5.93 1.7 - 6.8 TH/uL [facility] # Lymphocytes 3.44 (H) 1.0 - 3.3 TH/uL [facility] # Monocytes 0.97 (H) 0.2 - 0.9 TH/uL [facility] # Eosinophils 0.57 (H) 0.0 - 0.4 TH/uL [facility] # Basophils 0.05 0.0 - 0.1 TH/uL [facility] Specimen Blood Performing Organization Address City/State/Zipcode Ph one Number [facility] [address] [facility] [place] [address] [facility] [address] [place] [facility] [place] [address], [facility] * Comprehensive Metabolic Panel (09/05/2015 4:07 PM HAUL DRIVER) Sodium 141 133 - 147 MEQ/L [facility] Potassium 3.7 3.5 - 5.3 MEQ/L [facility] Chloride 105 96 - 112 MEQ/L [facility] Carbon Dioxide 25 20 - 32 MEQ/L [facility] Anion Gap 11 5 - 17 [facility] Calcium 9.6 8.4 - 10.5 mg/dL [facility] Glucose 136 (H) 70 - 100 mg/dL [facility] Protein Total 7.7 6.0 - 8.2 g/dL [facility] Serum [facility] Albumin 4.4 3.5 - 5.0 g/dL [facility] Alkaline 87 42 - 140 IU/L [facility] Phosphatase [facility] Alanine 24 13 - 69 IU/L [facility] Aminotransferas [facility] e [facility] Aspartate 37 15 - 46 IU/L [facility] Aminotransferas [facility] Bilirubin Total 0.4 0.2 - 1.3 mg/dL [facility] Blood Urea 22 7 - 26 mg/dL [facility] Nitrogen [facility] Creatinine 0.8 0.4 - 1.1 mg/dL [facility] eGFR Female AA 87 60 - 200 [facility] Comment: [facility] Chronic Kidney Disease less [facility] than 60 mL/min/1.73 sq.m Kidney failure less than 15 mL/min/1.73 sq.m eGFR Female 72 60 - 200 [facility] Non-AA Comment: [facility] Chronic Kidney Disease less [facility] than 60 mL/min/1.73 sq.m Kidney failure less than 15 mL/min/1.73 sq.m Specimen Blood Performing Organization Address City/State/Zipcode Ph one Number [facility] [address] [place] [address] [facility] [address] [facility] [address], [place] [phone] [facility] * XR Chest single view frontal (09/05/2015 3:59 PM HAUL DRIVER) Specimen Impressions Performed At IMPRESSION: No acute cardiopulmonary process. [facility] READING SITE: [facility] Narrative Performed At Patient: ISIAH BENÍTEZ Sex#: Paulina # 1950 Jose#: Location: [place] [address] Procedure Requested: [id number] XR CHEST SINGLE VIEW FRONTAL Reason for [...] Rad Results In - 09/05/2015 5:25 PM HAUL DRIVER Patient: ISIAH BENÍTEZ Sex#: F # [id number] Jose#: Location: [place] [address] Procedure Requested: [id number] XR CHEST SINGLE VIEW FRONTAL Reason for [...] IMPRESSION: No acute cardiopulmonary process. READING SITE: [facility] Performing Organization Address City/State/Zipcode Ph one Number [facility] * Electrocardiogram (ECG) (09/05/2015 3:51 PM HAUL DRIVER) Specimen Narrative Performed At [facility] ED Test Date: 2015-09-05 Pat Name: ISIAH BENÍTEZ Department: ERS Room: SED Gender: Female Community Service Representative: JJ : 1950 Requested By: CHAVA KELLY Order Number: [id number] Reading MD: Delores Cabrera Measurements Intervals [place] Rate: 66 P: 31 DE: 136 QRS: 21 QRSD: 98 T: 58 QT: 424 QTc: 445 Interpretive Statements SINUS RHYTHM No previous ECG available for compariso n Electronically Signed On 09-06-2015 14:0 9:54 HAUL DRIVER by Delores Cabrera Performing Organization Address City/State/Zipcode Ph one Number [facility] documented in this encounter Visit Diagnoses Diagnosis Pleuritic chest pain Painful respiration Allergic reaction, initial encounter documented in this encounter Administered Medications Action Date Dose Rate Site Medication Order MAR Action 09/05/2015 4:34 PM HAUL DRIVER 20 mg famotidine (PEPCID) injection 20 mg Given 20 mg, Intravenous, Once, Ju 09/05/15 a t 1629, For 1 dose 09/05/2015 8:05 PM HAUL DRIVER 1 tablet HYDROcodone-acetaminophen (NORCO) 5-325 Given mg per tablet 1 tablet 1 tablet, Oral, Once, Ju 09/05/15 at 2004, For 1 dose, Do not exceed 4 GM/DA Y of acetaminophen. If 65 or older do no t exceed 3 GM/DAY. If chronic alcoholic d o not exceed 2 GM/DAY., 09/05/2015 4:39 PM HAUL DRIVER 3 mL ipratropium-albuterol (DUO-NEB) 0.5-3 Given mg/3 mL nebulizer solution 3 mL 3 mL, Inhalation, As needed, wheezing, shortness of air, bronchospasm, Startin g Ju 09/05/15 at 1627, Via SVN, 09/05/2015 5:39 PM HAUL DRIVER 30 mg ketorolac (TORADOL) injection 30 mg Given 30 mg, Intravenous, Once, Ju 09/05/15 a t 1736, For 1 dose 09/05/2015 4:37 PM HAUL DRIVER 125 mg methylPREDNISolone sodium succinate Given (Solu-MEDROL) injection 125 mg 125 mg, Intravenous, Once, Ju 09/05/15 at 1629, For 1 dose 09/05/2015 4:31 PM HAUL DRIVER 4 mg morphine 4 mg Given 4 mg, Intravenous, Once, Ju 09/05/15 at 1629, For 1 dose 09/05/2015 5:38 PM HAUL DRIVER 500 mL 1000 mL/hr sodium chloride 0.9% (NS) IV Bolus New Bag 500 mL, Intravenous, Administer over 30 Minutes, Once, Ju 09/05/15 at 1651, For 1 dose documented in this encounter
--- OUTSIDE RECORDS SUMMARY | 2020-03-12 09:29 | XMS REPORT | Clinical Summary ---
Author Author [facility] Organization [facility] Address Unknown Phone Unavailable Care Team Providers Care Ultrasonic Tester Name Role Phone Angela Galloway MD Unavailable Yassine Cano MD Unavailable Chantel Don DO Unavailable Jeremy Franco MD Unavailable Unavailable Angela Galloway MD PCP Joanna Causey RD Unavailable Unavailable Leeanna Cheema RN Unavailable Unavailable Patrick Astorga MD Unavailable April Weaver DO Unavailable Genevieve Chavira MD Unavailable Gege Joseph MD Unavailable Jermaine Penaloza MD Unavailable Bijan Ambrocio M.S.M., MD Unavailable Smiley Barahona RN Unavailable Unavailable Source Comments Some departments are not documenting in the electronic medical record. If you d o not see the information that you expected, contact Release of Information in [facility] Health Information Management department at [phone] for further assistan ce in locating additional records.[facility] Allergies Comments Active Allergy Reactions Severity [...] tablet mouth twice 3 daily. Active Insulin [place] 100 Each 11 (Disposable) (ULTICARE) 3 29 [...] - will provide an EpiPen for severe irivng ctions involving the airway Hemoptysis 05/19/2012 Overview: History of bloody sputum for the last 2 weeks or so. By report, has had a CT scan of chest that showed pneumonia only and was treated. - will obtain a chest xray today to fol low-up on pneumonia, with concern for malignancy because of history of sm oking. - recommend seeing a Energy Engineer for further evaluation as she has been evaluated by her primary care, will ref er today to pulm. Immunizations Name Administration Dates Next Due [...] Health Maintenance Due Date Last Done Comments DTAP/TDAP VACCINES (1 - 1970 Tdap) HEPATITIS C SCREENING 1970 PHYSICAL (COMPREHENSIVE) 1970 EXAM BREAST CANCER SCREENING 1992 COLORECTAL CANCER 2002 SCREENING SHINGLES RECOMBINANT 2002 VACCINE (1 of 2) OSTEOPOROSIS 2017 SCREENING/MONITORING PNEUMONIA (PPSV23) 11/10/2017 11/10/2012 VACCINE (1 of 1 - PPSV23) INFLUENZA VACCINE 05/23/2020 06/08/2012 Results Not on filefrom Last 3 Months Advance Directives Patient Floor Installation Mechanic Explanation Type Date Recorded Advance 05/02/2013 4:38 PM Directive/DPOA
--- OUTSIDE RECORDS SUMMARY | 2020-03-12 09:29 | XMS REPORT | Encounter Summary ---
Author Author [facility] Organization [facility] Address Unknown Phone Unavailable Care Team Providers Care Pole Peeling Machine Operator Name Role Phone PCP Unavailable Encounter Details Care Team Description Date Type Department James Foster DO [address] [place] [id number] [phone] [facility] W[facility] FOR[facility] [address] [place] [address] Social History Date Tobacco Use Types Packs/Day [...] PM CDT) Specimen Narrative Performed At Report [facility] Name: ISIAH BENÍTEZ P Date of : 10/15/1949 Sex: F Check-in #: [id number] Jose#/Jacket#: [id number] Room/Bed/Location: Medical Rec ord #: [id number] Attending Physician: [id number] Corea Admitting Diagnosis: 959.4 HAND INJURY NOS Procedure Requested: [id number] DX FINGERS M IN 2 VIEWS LEFT [...] Fracture of the proximal di stal phalanx. Rollout Manager- ALEX MOBLEY M.D. , Staff Radiologist Dictated By- ALEX MOBLEY M.D., Sta ff Radiologist Staff Physician- ALEX MOBLEY M.D., Staff Radiologist Authenticated By- ALEX MOBLEY M.D. , Staff Radiologist Released Date Time- 05/09/05 0541 [id number] Procedure Note Interface, Rad Conversion - 10/23/2013 9:58 PM WORSHIP LEADER Report Name: ISIAH BENÍTEZ P Date of : 1950 Sex: F Check-in #: [id number] Jose#/Jacket#: [id number] Room/Bed/Location: Attending Physician: [id number] TIFFANIE Corea Admitting Diagnosis: 959.4 HAND INJURY NOS Procedure Requested: 15095 DX FINGERS MIN 2 VIEWS LEFT L [...] Impression: Fracture of the proximal distal phalanx. Rollout Manager- ALEX MOBLEY M.D., Staff Radiologist Dictated By- ALEX MOBLEY M.D., Staff Radiologist Staff Physician- ALEX MOBLEY M.D., Staff Radiologist Authenticated By- ALEX MOBLEY M.D., Staff Radiologist Released Date Time- 05/09/05 0541 [id number] Performing Organization Address City/State/Zipcode Ph one Number [facility] * CT Head wo contrast (05/08/2005 5:00 PM CDT) Specimen Narrative Performed At Report [facility] Name: ISIAH BENÍTEZ P Date of : 10/15/1949 Sex: F Check-in #: [id number] Jose#/Jacket#: [id number] Room/Bed/Location: Medical Rec ord #: [id number] Attending Physician: [id number] TIFFANIE Corea Admitting Diagnosis: 780.79 MALAISE AND FATIGUE NEC Procedure Requested: 35484 CT HEAD WO C ONTRAST L Reason For Exam: 780.79 MALAISE AND FAT IGUE NEC Requested By: TIFFANIE Corea DO E xam Ordered: 05/08/20051733 Exam Date/Time: 05/08/20051714 Ch laura-in Date/Time: 05/08/20051733 These images and [...] Impression: No acute intracranial proce ss identified. Rollout Manager- KELLY GAN M.D., Staff Radiologist Dictated By- REYNOLD RINCON D.O., Res ident Staff Physician- KELLY GAN M.D., Staff Radiologist Authenticated By- KELLY GAN M.D., Staff Radiologist Released Date Time- 05/08/05 1758 [id number] Procedure Note Interface, Rad Conversion - 10/23/2013 9:58 PM WORSHIP LEADER Report Name: ISIAH BENÍTEZ P Date of : 1950 Sex: F Check-in #: [id number] Jose#/Jacket#: [id number] Room/Bed/Location: Attending Physician: [id number] TIFFANIE Corea Admitting Diagnosis: 780.79 MALAISE AND FATIGUE NEC Procedure Requested: 11646 CT HEAD WO CONTRAST L Reason For Exam: 780.79 MALAISE AND FATIGUE NEC Requested By: TIFFANIE Corea DO Exam Ordered: 05/08/20054 Exam Date/Time: 05/08/2005 1715 Check-in Date/Time: 05/08/20051733 These images and this [...] clear. Impression: No acute intracranial process identified. Rollout Manager- KELLY GAN M.D., Staff Radiologist Dictated By- REYNOLD RINCON D.O., Resident Staff Physician- KELLY GAN M.D., Staff Radiologist Authenticated By- KELLY GAN M.D., Staff Radiologist Released Date Time- 05/08/05 1758 [id number] Performing Organization Address City/State/[facility] Ph one Number [facility] documented in this encounter Visit Diagnoses Diagnosis Open wound of forehead, without mention of complication documented in this encounter
--- OUTSIDE RECORDS SUMMARY | 2020-03-12 09:29 | XMS REPORT | Encounter Summary ---
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 Care Executor Of Estate Name Role Phone Ebony Sharp MD PCP [...] Date Type Department Antonio Mayer, [address] [facility] [place] [address] Dyspnea (Primary Dx); COPD (chronic obstructive pulmonary disease) (HCC) 09/14/2015 Emergency [facility] [address] [place] [address] Social History Date Tobacco Use [...] Comments Vital Sign 166/90 09/14/2015 11:32 AM RAIL CAR OPERATOR Blood Pressure 84 09/14/2015 11:32 AM RAIL CAR OPERATOR Pulse 36.8 C (98.3 F) 09/14/2015 5:31 AM RAIL CAR OPERATOR Temperature 22 09/14/2015 11:32 AM RAIL CAR OPERATOR Respiratory Rate 98% 09/14/2015 11:32 AM RAIL CAR OPERATOR Oxygen Saturation - - Inhaled Oxygen Concentration 92.5 kg (204 lb) 09/14/2015 5:31 AM RAIL CAR OPERATOR Weight 152.4 cm (5') 09/14/2015 5:31 AM RAIL CAR OPERATOR Height 39.84 09/14/2015 5:31 AM RAIL CAR OPERATOR Body Mass Index documented in this [...] do for your COPD and your ov [facility]. Join a stop-smoking program. There are even [...] local hospital about programs in your area. [phone] [employer] [address] [place] [address], [place], [place] 7. All rights reserved. This information is [...] * Mala Lynn - 09/14/2015 11:06 AM RAIL CAR OPERATOR SW received phone call from Luigi with [facility] and he stated that all of pt's equipment has been delivered to pt's home. RAYMOND called ED to advise of the above and pt okay to d/c to home from social servi sudeep perspective. CAR OPERATOR documented in this encounter Consult Notes * Mala Lynn - 09/14/2015 9:36 AM RAIL CAR OPERATOR SW received phone call from ED advising [...] with pt's son-in-law who stated provider is [facility]. RAYMOND called Darvin Valadez with [facility] and he stated that Yannick is workers compensation manager. RAYMOND called Yannick at [phone] and left vm. RAYMOND called Luigi Martinez, Cash Shortage Investigator with [facility] and explained the situat ion. He stated he will have a vibratory pile driver out to pt's home within the next hour to d vaniabrianne new concentrator. He will call this worker back as soon as he has spoken with vibratory pile driver. RAYMOND called pt's home and spoke with pt's dtr to advise of the abov e. She will be home to receive the equipment. CAR OPERATOR documented in this encounter ED Notes * Susy Wilson, RN - 09/14/2015 11:55 AM RAIL CAR OPERATOR PT UP IN ROOM WITHOUT DIFF. RESP UNLABORED. CAR OPERATOR * Susy Wilson RN - 09/14/2015 11:35 AM RAIL CAR OPERATOR LUNCH TRAY GIVEN. CAR OPERATOR * Yuki Goel, RN - 09/14/2015 11:27 AM RAIL CAR OPERATOR Spoke with pt son, David, reported that oxygen has been delivered to house and is set up ready for patient use. Reports patient does not usually use portable tank and only lives 15 minutes from hospital. Ok per Dr. Mayer, ready for dischar ge. CAR OPERATOR * Calvin Garcia - 09/14/2015 8:22 AM RAIL CAR OPERATOR Social work called. No answer. Voice message left to call ED. CAR OPERATOR * Yuki Goel, ADAM - 09/14/2015 8:20 AM RAIL CAR OPERATOR Social work called. Message left to call ED. CAR OPERATOR * Antonio Mayer DO - 09/14/2015 7:28 AM RAIL CAR OPERATOR 09/14/2015 [facility] History Chief Complaint Patient presents with Shortness of Breath pt reports hx of COPD and over the past three days has had increased SOA. pt r eports wearing O2 at home but has not had any to wear since yesterday. pt 86% on RA HPI 65-year-old Afro-Samoan female with history of oxygen dependent COPD [...] Bibasilar subsegmental atelectasis. No consolidation. READING SITE: [facility] ATTESTATION STATEMENT: The staff radiologist has personally reviewed the images and dictated, reviewed or edited the final report. Ebony Sharp MD [address] [facility] [address] [facility] [address] ED Clinical Impression SNOMED CT(R) 1. Dyspnea DYSPNEA 2. COPD (chronic obstructive pulmonary disease) CHRONIC OBSTRUCTIVE LUNG DISEAS E Antonio Mayer DO 09/14/15 1124 Antonio Mayer DO 09/14/15 1130 CAR OPERATOR * Marisa Rodas RN - 09/14/2015 5:34 AM RAIL CAR OPERATOR pt reports hx of COPD and over the past three days has had increased SOA. pt rep orts wearing O2 at home but has not had any to wear since yesterday. pt 86% on R A CAR OPERATOR documented in this encounter Plan of Treatment Not on filedocumented as of this encounter Procedures Comments Procedure Name Priority Date/Time Associated Diag nosis OXYGEN STAT 09/14/2015 10:08 AM RAIL CAR OPERATOR CBC AND DIFF (MANUAL DIFF STAT 09/14/2015 IF NECESSARY) 7:05 AM RAIL CAR OPERATOR BASIC METABOLIC PANEL STAT 09/14/2015 7:05 AM RAIL CAR OPERATOR XR CHEST 2 VIEWS (PA AND STAT 09/14/2015 LATERAL) 6:15 AM RAIL CAR OPERATOR TROPONIN STAT 09/14/2015 5:50 AM RAIL CAR OPERATOR OXYGEN STAT 09/14/2015 5:38 AM RAIL CAR OPERATOR PULSE OXIMETRY, STAT 09/14/2015 CONTINUOUS 5:38 AM RAIL CAR OPERATOR ECG STAT 09/14/2015 5:33 AM RAIL CAR OPERATOR documented in this encounter Results * Basic Metabolic Panel (09/14/2015 7:05 AM RAIL CAR OPERATOR) [facility] Signature Sodium 142 133 - 147 MEQ/L [facility] Potassium 4.5 3.5 - 5.3 MEQ/L [facility] Chloride 99 96 - 112 MEQ/L [facility] Carbon Dioxide 35 (H) 20 - 32 MEQ/L [facility] Anion Gap 8 5 - 17 [facility] Calcium 8.8 8.4 - 10.5 mg/dL [facility] Glucose 145 (H) 70 - 100 mg/dL [facility] Blood Urea 18 7 - 26 mg/dL [facility] Nitrogen [facility] Creatinine 0.7 0.4 - 1.1 mg/dL [facility] eGFR Female AA 101 60 - 200 ON LICENSE OF [facility] Comment: [facility] Chronic Kidney Disease less [facility] than 60 mL/min/1.73 sq.m Kidney failure less than 15 mL/min/1.73 sq.m eGFR Female 85 60 - [address] [facility] Non-AA Comment: [facility] ZAZUETA'[facility] Chronic Kidney Disease less [facility] than 60 mL/min/1.73 sq.m Kidney failure less than 15 mL/min/1.73 sq.m Specimen Blood Narrative Performed At This order is a replacement of the rejected order wit h accession number [facility] - [id number] [facility] Performing Organization Address City/State/Zipcode Ph one Number [facility] [address] [place] [facility] [place] [id number] [facility] [address] [place] [address], [facility] * CBC and Diff (manual diff if necessary) (09/14/2015 7:05 AM RAIL CAR OPERATOR) WBC 7.87 4.00 - 11.00 TH/uL [facility] RBC 3.78 (L) 4.00 - 5.00 MIL/uL [facility] Hemoglobin 12.2 12.0 - 15.0 g/dL [facility] Hematocrit 39 36 - 45 % [facility] MCV 102 (H) 80 - 99 fL [facility] MCH 32 27 - 34 pg [facility] MCHC 32 32 - 36 % [facility] RDW 14.3 9.0 - 14.5 % [facility] Platelet Count 150 140 - 400 TH/uL [facility] MPV 9.8 9.4 - 12.3 fL [facility] % Neutrophils 76 45 - 78 % [facility] %Lymphocytes 17 15 - 47 % [facility] %Monocytes 6 0 - 12 % [facility] %Eosinophils 1 0 - 7 % [facility] %Basophils 0 0 - 2 % [facility] # Granulocytes 5.97 1.7 - 6.8 TH/uL [facility] # Lymphocytes 1.36 1.0 - 3.3 TH/uL [facility] # Monocytes 0.44 0.2 - 0.9 TH/uL [facility] # Eosinophils 0.08 0.0 - 0.4 TH/uL [facility] # Basophils 0.02 0.0 - 0.1 TH/uL [facility] Specimen Blood Narrative Performed At This order is a replacement of the rejected order wit h accession number [facility] [id number] [facility] Performing Organization Address City/State/Zipcode Ph one Number [facility] [address] [place] [address] [facility] [address] [facility] [place] [place] [address], [facility] * XR Chest 2 views (PA and lateral) (09/14/2015 6:15 AM RAIL CAR OPERATOR) Specimen Impressions Performed At IMPRESSION: Low lung volume. Bibasilar subsegmental a telectasis. No ABIKESSON consolidation. READING SITE: [facility] ATTESTATION STATEMENT: The staff radiologist has personally re viewed the images and dictated, reviewed or edited the final report. Narrative Performed At Patient: ISIAH BENÍTEZ Sex#: F # [id number] Jose#: Location: [place] [address] Procedure Requested: [id number] XR CHEST 2 VIEWS (PA AND LATERAL) [...] Rad Results In - 09/14/2015 10:55 AM RAIL CAR OPERATOR Patient: ISIAH BENÍTEZ Sex#: F # [id number] Jose#: Location: [place] [address] Procedure Requested: [id number] XR CHEST 2 VIEWS (PA AND LATERAL) Reason for Exam: Shortness of Air Exam Ordered: 09/14/2015 0539 Exam Date/Time: 09/14/201515 Check-in Date/Time: 09/14/201539 XR CHEST 2 VIEWS (PA AND LATERAL) INDICATION: Shortness of Air. COMPARISON STUDY: 09/05/2015. FINDINGS: Lungs: Low lung volume. Bibasilar subsegmental atelectasis. No consolidation. Remote granulomatous disease. Pleura: No pleural effusion or pneumothorax. Heart and Mediastinum: Stable heart and mediastinum. Bones: No acute osseous abnormality. IMPRESSION: Low lung volume. Bibasilar subsegmental atelectasis. No consolidation. READING SITE: [facility] ATTESTATION STATEMENT: The staff radiologist has personally reviewed the images and dictated, reviewed or edited the final report. Performing Organization Address City/State/[facility] Number [facility] * Troponin (09/14/2015 5:50 AM RAIL CAR OPERATOR) Troponin <0.01 0.00 - 0.03 ng/mL [facility]Shaz[facility] Comment: [facility] AGUST[facility] Troponin Value [facility] Interpretation 0.00 - 0.03 Healthy 0.04 - 0.12 Increased Cardiac Risk >0.12 Myocardial Infarction Troponin may not become elevated until 6 to 8 hours after onset of symptoms. Specimen Blood Performing Organization Address City/State/Zipcode Ph one Number [facility] [address] [place] [address] [facility] [address] 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: [id number] : 1950 Requested By: CHAVA ORTIZ Order Number: [id number] Reading MD: Medardo Alcaraz Measurements Intervals [place] Rate: 71 P: 51 DE: 140 QRS: 42 QRSD: 98 T: 49 QT: 400 QTc: 435 Interpretive Statements SINUS RHYTHM Compared to ECG 09/05/2015 15:51:41 No significant changes Electronically Signed On 09-15-2015 17:1 3:19 RAIL CAR OPERATOR by Medardo Alcaraz Performing Organization Address City/State/Zipcode Ph one Number [facility] documented in this encounter Visit Diagnoses Diagnosis Dyspnea Other dyspnea and respiratory abnormali ty COPD (chronic obstructive pulmonary dis ease) (HCC) Chronic airway obstruction, not elsewhe re classified documented in this encounter Administered Medications Action Date Dose Rate Site Medication Order MAR Action 09/14/2015 7:26 AM RAIL CAR OPERATOR 100 mcg fentaNYL (SUBLIMAZE) 50 mcg/mL injection Given 100 mcg 100 mcg, Intravenous, Once, 09/14/15 at 0624, For 1 dose 09/14/2015 7:37 AM RAIL CAR OPERATOR 10 mg hydrALAZINE (APRESOLINE) injection 10 mg Given 10 mg, Intravenous, Once, 09/14/15 a t 0624, For 1 dose 09/14/2015 5:42 AM RAIL CAR OPERATOR 3 mL ipratropium-albuterol (DUO-NEB) 0.5-3 Given mg/3 mL nebulizer solution 3 mL 3 mL, Inhalation, Once, 09/14/15 at 0534, For 1 dose 09/14/2015 10:02 AM RAIL CAR OPERATOR 3 mL ipratropium-albuterol (DUO-NEB) 0.5-3 Given mg/3 mL nebulizer solution 3 mL 3 mL, Inhalation, Once, 09/14/15 at 0928, For 1 dose documented in this encounter"
--- OUTSIDE RECORDS SUMMARY | 2020-03-12 09:29 | XMS REPORT ---
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 Name Role Phone LAURIE LYLE Unavailable PROBLEMS Type Condition ICD9-CM Code [id number] Code Onset Dates Condition S tatus SNOMED Code Problem COPD (chronic obstructive pulmonary disease) J44.9 Active 53537756 Problem Diabetes E11.9 Active 06342201 Problem Diabetic neuropathy E11.40 Active 967369640 Problem Arthritis M19.90 Active 5595123 ALLERGIES No Information ENCOUNTERS Encounter Location Date Diagnosis [facility] [address] [facility] [id number] [address] [place] [id number] December, [facility] [address] [id number] [address] [place] [id number] Aug, Arthritis M19.90 [facility] [address] [facility] [id number] [address] [place] [id number] Jul, [facility] [address] [facility] [id number] [address] [place] [id number] Jul, [facility] [address] [facility] [id number] [address] [place] [id number] Jul, [facility] [address] [id number] [address] [place] [id number] Jul, [facility] [address] [facility] [id number] [address] [place] [id number] Jul, Diabetes E11.9 ; Diabetic ne uropathy E11.40 ; Arthritis M19.90 and COPD (chronic obstructive pulmonary disease) J44.9 [facility] [address] [facility] [id number] [address] [place] [id number] Jul, [facility] [address] [id number] [address] [place] [address], [place] [address] 23 Jun, 2015 [facility] [address] [id number] [address] [place] [address], [place] [address] 23 Jun, 2015 [facility] [address] [id number] [address] [place] [address], [place] [id number] 17 Jun, 2014 [facility] [address] [id number] [address] [place] [address], [place] [id number] 10 Jun, 2014 [facility] [address] [id number] [address] [place] [address], [place] [id number] 15 May, 2015 [facility] [address] [id number] [address] [place] [address], [place] [address] 13 May, 2015 [facility] [address] [id number] [address] [place] [address], [place] [address] 07 May, 2015 [facility] [address] [id number] [address] [place] [address], [place] [address] 22 Sep, 2014 [facility] [address] [id number] [address] [place] [address], [place] [address] 21 Sep, 2014 [facility] [address] [id number] [address] [place] [address], [place] [address] 21 Sep, 2014 [facility] [address] [id number] [address] [place] [address], [place] [address] 15 Sep, 2014 [facility] [address] [id number] [address] [place] [address], [place] [address] 11 Sep, 2014 [facility] [address] [id number] [address] [place] [address], [place] [address] 09 Sep, 2014 [facility] [address] [id number] [address] [place] [address], [place] [address] 08 Sep, 2014 [facility] [address] [id number] [address] [place] [address], [place] [id number] 03 Sep, 2014 [facility] [address] [id number] [address] [place] [address] [address] Apr, [facility] [address] [facility] [id number] [address] [place] [phone] Mar, [facility] [address] [facility] [id number] [address] [place] [id number] Mar, [facility] [address] [facility] [id number] [address] [place] [id number] Mar, [facility] [address] [facility] [id number] [address] [place] [id number] Mar, [facility] [address] [facility] [id number] [address] [place] [id number] Mar, [facility] [address] [facility] [id number] [address] [place] [id number] Mar, Diabetes mellitus 250.00 ; C OPD (chronic obstructive pulmonary disease) 496 ; Anxiety 300.00 and Arthritis 716.90 [facility] [address] [facility] [id number] [address] [place] [id number] Feb, [facility] [address] [facility] [id number] [address] [place] [id number] Feb, [facility] [address] [facility] [id number] [address] [place] [phone] Feb, [facility] [address] [facility] [id number] [address] [place] [id number] Feb, [facility] [address] [facility] [id number] [address] [place] [phone] Jan, Seborrheic keratosis 702.19 and Nevus 216.9 [facility] [address] [facility] [id number] [address] [place] [phone] Jan, [facility] [address] [facility] [id number] [address] [place] [id number] Jan, Routine gynecological examin ation V72.31 ; Breast cancer screening V76.10 ; Hot flashes 627.2 ; Atypical nevi 216.9 and Constipation 564.00 [facility] [address] [id number] [address] [place] [address], [place] [address] Jan, [facility] [address] [id number] [address] [place] [address], [place] [address] December, [facility] [address] [id number] [address] [place] [address], [place] [address] December, [facility] [address] [id number] [address] [place] [address], [place] [address] Nov, [facility] [address] [id number] [address] [place] [address], [place] [address] Nov, [facility] [address] [id number] [address] [place] [address], [place] [address] Oct, [facility] [address] [id number] [address] [place] [address], [place] [address] 23 Oct, 2014 [facility] [address] [id number] [address] [place] [address], [place] [address] 18 Oct, 2014 [facility] [address] [id number] [address] [place] [address], [place] [address] 18 Oct, 2014 [facility] [address] [id number] [address] [place] [address], [place] [address] 17 Oct, 2014 [facility] [address] [id number] [address] [place] [address], [place] [address] 17 Oct, 2014 [facility] [address] [id number] [address] [place] [id number] 16 Oct, 2014 [facility] [address] [id number] [address] [place] [address], [place] [address] 16 Oct, 2014 [facility] [address] [id number] [address] [place] [address], [place] [address] 11 Oct, 2014 [facility] [address] [id number] [address] [place] [address], [place] [address] 11 Oct, 2014 [facility] [address] [id number] [address] [place] [address], [place] [address] Sep, 2014 [facility] [address] [id number] [address] [place] [address], [place] [address] Sep, 2014 [facility] [address] [id number] [address] [place] [address], [place] [address] 19 Sep, 2014 [facility] [address] [id number] [address] [place] [address], [place] [address] 18 Sep, 2014 [facility] [address] [id number] [address] [place] [address], [place] [address] Sep, 2014 [facility] [address] [id number] [address] [place] [address], [place] [address] Sep, 2014 [facility] [address] [id number] [address] [place] [address], [place] [address] Sep, 2014 [facility] [address] [id number] [address] [place] [address], [place] [address] Aug, [facility] [address] [id number] [address] [place] [address], [place] [address] Aug, [facility] [address] [id number] [address] [place] [address], [place] [address] Aug, [facility] [address] [id number] [address] [place] [address], [place] [address] Aug, [facility] [address] [id number] [address] [place] [address], [place] [address] Aug, [facility] [address] [id number] [address] [place] [address], [place] [address] Aug, [facility] [address] [id number] [address] [place] [address], [place] [address] Jul, [facility] [address] [id number] [address] [place] [address], [place] [address] Jul, [facility] [address] [id number] [address] [place] [address], [place] [address] Jul, [facility] [address] [id number] [address] [place] [address], [place] [address] Jul, [facility] [address] [id number] [address] [place] [address], [place] [address] Jul, [facility] [address] [id number] [address] [place] [address], [place] [address] Jun, [facility] [address] [id number] [address] [place] [address], [place] [address] Jun, [facility] [address] [id number] [address] [place] [address], [place] [address] Jun, [facility] [address] [id number] [address] [place] [address], [place] [address] Jun, [facility] [address] [id number] [address] [place] [address], [place] [address] Jun, [facility] [address] [id number] [address] [place] [address], [place] [address] Jun, [facility] [address] [id number] [address] [place] [address], [place] [address] May, [facility] [address] [id number] [address] [place] [address], [place] [address] May, [facility] [address] [id number] [address] [place] [address], [place] [address] May, [facility] [address] [id number] [address] [place] [id number] May, [facility] [address] [id number] [address] [place] [address], [place] [address] May, [facility] [address] [id number] [address] [place] [address], [place] [address] May, [facility] [address] [id number] [address] [place] [address], [place] [address] May, [facility] [address] [id number] [address] [place] [address], [place] [address] May, [facility] [address] [id number] [address] [place] [address], [place] [address] May, [facility] [address] [id number] [address] [place] [address], [place] [address] Apr, [facility] [address] [id number] [address] [place] [address], [place] [address] Apr, [facility] [address] [id number] [address] [place] [address], [place] [address] Apr, [facility] [address] [id number] [address] [place] [address], [place] [address] Apr, [facility] [address] [id number] [address] [place] [address], [place] [address] Mar, [facility] [address] [id number] [address] [place] [address], [place] [address] Mar, [facility] [address] [id number] [address] [place] [address], [place] [address] Mar, [facility] [address] [id number] [address] [place] [address], [place] [address] Mar, [facility] [address] [id number] [address] [place] [address], [place] [address] Mar, [facility] [address] [id number] [address] [place] [address], [place] [address] Mar, [facility] [address] [id number] [address] [place] [address], [place] [address] Feb, [facility] [address] [id number] [address] [place] [address], [place] [address] Feb, [facility] [address] [id number] [address] [place] [address], [place] [address] Feb, [facility] [address] [id number] [address] [place] [address], [place] [address] Feb, [facility] [address] [id number] [facility] [address] Feb, 2013 [facility] [address] [id number] [facility] [address] Feb, [facility] [address] [id number] [address] [place] [address], [place] [address] Feb, 2013 [facility] [address] [id number] [address] [place] [address], [place] [address] Feb, 2013 [facility] [address] [id number] [address] [place] [address], [place] [address] Feb, 2013 [facility] [address] [id number] [address] [place] [address], [place] [address] Feb, [facility] [address] [id number] [address] [place] [address], [place] [address] Feb, [facility] [address] [id number] [address] [place] [address], [place] [address] Feb, [facility] [address] [id number] [address] [place] [address], [place] [address] Jan, [facility] [address] [id number] [address] [place] [address], [place] [address] Jan, [facility] [address] [id number] [address] [place] [address], [place] [address] Jan, [facility] [address] [id number] [address] [place] [address], [place] [address] Jan, [facility] [address] [id number] [address] [place] [address], [place] [address] Jan, [facility] [address] [id number] [address] [place] [address], [place] [address] Jan, [facility] [address] [id number] [address] [place] [address], [place] [address] Jan, [facility] [address] [id number] [address] [place] [address], [place] [address] Jan, [facility] [address] [id number] [address] [place] [address], [place] [address] Jan, [facility] [address] [id number] [address] [place] [address], [place] [address] Jan, [facility] [address] [id number] [address] [place] [address], [place] [address] Jan, [facility] [address] [id number] [address] [place] [address], [place] [address] Jan, [facility] [address] [id number] [address] [place] [address], [place] [address] Jan, [facility] [address] [id number] [address] [place] [address], [place] [address] Jan, [facility] [address] [id number] [address] [place] [address], [place] [address] Jan, [facility] [address] [id number] [address] [place] [address], [place] [address] Jan, [facility] [address] [id number] [address] [place] [address], [place] [address] Jan, [facility] [address] [id number] [address] [place] [address], [place] [address] December, [facility] [address] [id number] [address] [place] [address], [place] [address] December, [facility] [address] [id number] [address] [place] [address], [place] [address] December, [facility] [address] [id number] [address] [place] [address], [place] [address] December, [facility] [address] [id number] [address] [place] [address], [place] [address] December, [facility] [address] [id number] [address] [place] [address], [place] [address] December, [facility] [address] [id number] [address] [place] [address], [place] [address] Nov, [facility] [address] [id number] [address] [place] [address], [place] [address] Nov, [facility] [address] [id number] [address] [place] [address], [place] [address] Nov, [facility] [address] [id number] [address] [place] [address], [place] [address] Nov, [facility] [address] [id number] [address] [place] [address], [place] [address] Nov, [facility] [address] [id number] [address] [place] [address], [place] [address] Nov, [facility] [address] [id number] [address] [place] [address], [place] [address] Nov, [facility] [address] [id number] [address] [place] [address], [place] [address] Nov, [facility] [address] [id number] [address] [place] [address], [place] [address] Nov, [facility] [address] [id number] [address] [place] [address], [place] [address] Nov, [facility] [address] [id number] [address] [place] [address], [place] [address] Nov, [facility] [address] [id number] [address] [place] [address], [place] [address] Nov, [facility] [address] [id number] [address] [place] [address], [place] [address] Nov, [facility] [address] [id number] [address] [place] [address], [place] [address] Nov, [facility] [address] [id number] [address] [place] [address], [place] [address] Nov, [facility] [address] [id number] [address] [place] [address], [place] [address] Nov, [facility] [address] [id number] [address] [place] [address], [place] [address] Oct, [facility] [address] [id number] [address] [place] [address], [place] [address] Oct, [facility] [address] [id number] [address] [place] [address], [place] [address] Oct, [facility] [address] [id number] [address] [place] [address], [place] [address] Oct, [facility] [address] [id number] [address] [place] [address], [place] [id number] Oct, [facility] [address] [id number] [address] [place] [address], [place] [id number] Oct, [facility] [address] [id number] [address] [place] [address], [place] [id number] Oct, [facility] [address] [id number] [address] [place] [address], [place] [id number] Oct, [facility] [address] [id number] [address] [place] [address], [place] [id number] Sep, [facility] [address] [id number] [address] [place] [address], [place] [id number] Sep, [facility] [address] [id number] [address] [place] [address], [place] [id number] Sep, [facility] [address] [id number] [address] [place] [address], [place] [id number] Sep, [facility] [address] [id number] [address] [place] [address], [place] [id number] Sep, [facility] [address] [id number] [address] [place] [address], [place] [id number] Sep, [facility] [address] [id number] [address] [place] [address], [place] [id number] Aug, [facility] [address] [id number] [address] [place] [address], [place] [id number] Aug, [facility] [address] [id number] [address] [place] [address], [place] [id number] Aug, [facility] [address] [id number] [address] [place] [address], [place] [id number] Aug, [facility] [address] [id number] [address] [place] [address], [place] [id number] Aug, [facility] [address] [id number] [address] [place] [address], [place] [id number] Aug, [facility] [address] [id number] [address] [place] [address], [place] [id number] Aug, [facility] [address] [id number] [address] [place] [address], [place] [id number] Aug, [facility] [address] [id number] [address] [place] [address], [place] [id number] Jul, [facility] [address] [id number] [address] [place] [address], [place] [id number] Jul, [facility] [address] [id number] [address] [place] [address], [place] [id number] Jul, [facility] [address] [id number] [address] [place] [address], [place] [id number] Jul, [facility] [address] [id number] [address] [place] [address], [place] [id number] Jul, [facility] [address] [id number] [address] [place] [address], [place] [id number] Jul, [facility] [address] [id number] [address] [place] [address], [place] [id number] Jul, [facility] [address] [id number] [address] [place] [address], [place] [id number] Jul, [facility] [address] [id number] [address] [place] [address], [place] [id number] Jul, [facility] [address] [id number] [address] [place] [address], [place] [id number] 14 Jun, 2013 [facility] [address] [id number] [address] [place] [address], [place] [id number] 14 Jun, 2013 [facility] [address] [id number] [address] [place] [address], [place] [id number] Jun, [facility] [address] [id number] [address] [place] [address], [place] [id number] Jun, [facility] [address] [id number] [address] [place] [address], [place] [id number] Jun, [facility] [address] [id number] [address] [place] [address], [place] [id number] Jun, [facility] [address] [id number] [address] [place] [address], [place] [id number] 31 May, 2013 [facility] [address] [id number] [address] [place] [address], [place] [id number] 31 May, 2013 [facility] [address] [id number] [address] [place] [address], [place] [id number] 17 May, 2013 [facility] [address] [id number] [address] [place] [address], [place] [id number] 17 May, 2013 [facility] [address] [id number] [address] [place] [address], [place] [id number] 14 May, 2013 [facility] [address] [id number] [address] [place] [address], [place] [id number] 14 May, 2013 [facility] [address] [id number] [address] [place] [address], [place] [id number] 10 May, 2013 [facility] [address] [id number] [address] [place] [address], [place] [id number] 10 May, 2013 [facility] [address] [id number] [address] [place] [address] [id number] 07 May, 2013 [facility] [address] [id number] [address] [place] [id number] 20 Sep, 2012 [facility] [address] [id number] [address] [place] [address], [place] [id number] 19 Sep, 2012 [facility] [address] [id number] [address] [place] [address], [place] [id number] 12 Apr, 2012 [facility] [address] [id number] [address] [place] [address], [place] [id number] 24 Sep, 2011 [facility] [address] [id number] [address] [place] [address], [place] [id number] 21 Sep, 2011 [facility] [address] [id number] [address] [place] [address], [place] [id number] 21 Apr, 2011 [facility] [address] [id number] [address] [place] [address], [place] [id number] 14 Apr, 2011 [facility] [address] [id number] [address] [place] [address], [place] [id number] 10 Apr, 2011 [facility] [address] [id number] [address] [place] [address], [place] [id number] 06 Apr, 2011 [facility] [address] [id number] [address] [place] [address], [place] [id number] 04 Apr, 2011 [facility] [address] [id number] [address] [place] [address], [place] [id number] 31 Mar, 2012 [facility] [address] [id number] [address] [place] [address], [place] [id number] 28 Mar, 2012 [facility] [address] [id number] [address] [place] [address], [place] [id number] 27 Mar, 2012 [facility] [address] [id number] [address] [place] [address], [place] [id number] 10 Mar, 2012 [facility] [address] [id number] [address] [place] [address], [place] [id number] 08 Mar, 2012 [facility] [address] [id number] [address] [place] [address], [place] [id number] 03 Mar, 2012 [facility] [address] [id number] [address] [place] [address], [place] [id number] Feb, [facility] [address] [id number] [address] [place] [address], [place] [id number] Feb, [facility] [address] [id number] [address] [place] [address], [place] [id number] Feb, [facility] [address] [id number] [address] [place] [address], [place] [id number] Jan, [facility] [address] [id number] [address] [place] [address], [place] [id number] Jan, [facility] [address] [id number] [address] [place] [address], [place] [id number] Jan, [facility] [address] [id number] [address] [place] [address], [place] [id number] Jan, [facility] [address] [id number] [address] [place] [address], [place] [id number] Jan, [facility] [address] [id number] [address] [place] [address], [place] [id number] Jan, [facility] [address] [id number] [address] [place] [address], [place] [id number] Jan, [facility] [address] [id number] [address] [place] [address], [place] [id number] Jan, [facility] [address] [id number] [address] [place] [address], [place] [id number] December, [facility] [address] [id number] [address] [place] [address], [place] [id number] December, [facility] [address] [id number] [address] [place] [address], [place] [id number] December, [facility] [address] [id number] [address] [place] [address], [place] [id number] December, [facility] [address] [id number] [address] [place] [address], [place] [id number] December, [facility] [address] [id number] [address] [place] [address], [place] [id number] December, [facility] [address] [id number] [address] [place] [address], [place] [id number] 13 Nov, 2011 [facility] [address] [id number] [address] [place] [address], [place] [id number] 13 Nov, 2011 [facility] [address] [id number] [address] [place] [address], [place] [id number] Nov, [facility] [address] [id number] [address] [place] [address], [place] [id number] Nov, [facility] [address] [id number] [address] [place] [address], [place] [id number] Nov, [facility] [address] [id number] [address] [place] [address], [place] [id number] Oct, [facility] [address] [id number] [address] [place] [address], [place] [id number] 17 Sep, 2011 [facility] [address] [id number] [address] [place] [address], [place] [id number] Aug, [facility] [address] [id number] [address] [place] [address], [place] [id number] Aug, [facility] [address] [id number] [address] [place] [address], [place] [id number] Aug, [facility] [address] [id number] [address] [place] [address], [place] [id number] Aug, [facility] [address] [id number] [address] [place] [address], [place] [id number] Aug, [facility] [address] [id number] [address] [place] [address], [place] [id number] Jul, [facility] [address] [id number] [address] [place] [address], [place] [id number] Jul, [facility] [address] [id number] [address] [place] [address], [place] [id number] Jun, [facility] [address] [id number] [address] [place] [address], [place] [id number] Jun, [facility] [address] [id number] [address] [place] [address], [place] [id number] Jun, [facility] [address] [id number] [address] [place] [address], [place] [id number] May, [facility] [address] [id number] [address] [place] [address], [place] [id number] May, [facility] [address] [id number] [address] [place] [address], [place] [id number] 16 Oct, 2010 [facility] [address] [id number] [address] [place] [address], [place] [id number] Oct, [facility] [address] [id number] [address] [place] [address], [place] [id number] 29 Jul, 2010 [facility] [address] [id number] [address] [place] [address], [place] [id number] 08 Jul, 2010 [facility] [address] [id number] [address] [place] [address], [place] [id number] Jul, [facility] [address] [id number] [address] [place] [address], [place] [id number] Jul, [facility] [address] [id number] [address] [place] [address], [place] [id number] Jul, [facility] [address] [id number] [address] [place] [address], [place] [id number] Jun, [facility] [address] [id number] [address] [place] [address], [place] [id number] Jun, [facility] [address] [id number] [address] [place] [address], [place] [address] Jun, [facility] [address] [id number] [address] [place] [address], [place] [id number] May, [facility] [address] [facility] [id number] [address] [place] [address] 16 Mar, 2010 IMMUNIZATIONS No Known Immunizations [...]
[2020-03-12 09:30] LABS: BUN/CREATININE RATIO 10
--- OUTSIDE RECORDS SUMMARY | 2020-03-12 09:30 | XMS REPORT ---
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 Name Role Phone LAURIE LYLE Unavailable PROBLEMS Type Condition ICD9-CM Code EKP21-GK Code Onset Dates Condition S tatus SNOMED Code Problem COPD (chronic obstructive pulmonary disease) J44.9 Active 67200797 Problem Diabetes E11.9 Active 11377782 Problem Diabetic neuropathy E11.40 Active 166268590 Problem Arthritis M19.90 Active 1221245 ALLERGIES No Information ENCOUNTERS Encounter Location Date Diagnosis [facility] [address] [facility] [id number] [address] [place] [id number] December, [facility] [address] [id number] [address] [place] [address] Aug, Arthritis M19.90 [facility] [address] [facility] [id number] [address] [place] [id number] Jul, [facility] [address] [facility] [id number] [address] [place] [id number] Jul, [facility] [address] [facility] [id number] [address] [place] [phone] Jul, [facility] [address] [id number] [address] [place] [id number] Jul, [facility] [address] [facility] [id number] [address] [place] [address] Jul, Diabetes E11.9 ; Diabetic ne uropathy E11.40 ; Arthritis M19.90 and COPD (chronic obstructive pulmonary disease) J44.9 [facility] [address] [facility] [id number] [address] [place] [id number] Jul, [facility] [address] [id number] [address] [place] [address], [place] [address] 23 Jun, 2015 [facility] [address] [id number] [address] [place] [address], [place] [address] 23 Jun, 2015 [facility] [address] [id number] [address] [place] [address], [place] [address] 17 Jun, 2014 [facility] [address] [id number] [address] [place] [address], [place] [address] 10 Jun, 2014 [facility] [address] [id number] [address] [place] [address], [place] [address] 15 May, 2015 [facility] [address] [id number] [address] [place] [address], [place] [address] 13 May, 2015 [facility] [address] [id number] [address] [place] [address], [place] [address] 07 May, 2015 [facility] [address] [id number] [address] [place] [address], [place] [address] 22 Sep, 2014 [facility] [address] [id number] [address] [place] [address], [place] [address] 21 Sep, 2014 [facility] [address] [id number] [address] [place] [address], [place] [address] 21 Sep, 2014 [facility] [address] [id number] [address] [place] [address], [place] [address] 15 Sep, 2014 [facility] [address] [id number] [address] [place] [address], [place] [address] 11 Sep, 2014 [facility] [address] [id number] [address] [place] [address], [place] [address] 09 Sep, 2014 [facility] [address] [id number] [address] [place] [address], [place] [address] 08 Sep, 2014 [facility] [address] [id number] [address] [place] [address], [place] [address] 03 Sep, 2014 [facility] [address] [id number] [address] [place] [address] [address] Apr, [facility] [address] [facility] [id number] [address] [place] [phone] Mar, [facility] [address] [facility] [id number] [address] [place] [phone] Mar, [facility] [address] [facility] [id number] [address] [place] [id number] Mar, [facility] [address] [facility] [id number] [address] [place] [phone] Mar, [facility] [address] [facility] [id number] [address] [place] [address] Mar, [facility] [address] [facility] [id number] [address] [place] [address] Mar, Diabetes mellitus 250.00 ; C OPD (chronic obstructive pulmonary disease) 496 ; Anxiety 300.00 and Arthritis 716.90 [facility] [address] [facility] [id number] [address] [place] [address] Feb, [facility] [address] [facility] [id number] [address] [place] [address] Feb, [facility] [address] [facility] [id number] [address] [place] [id number] Feb, [facility] [address] [facility] [id number] [address] [place] [phone] Feb, [facility] [address] [facility] [id number] [address] [place] [address] Jan, Seborrheic keratosis 702.19 and Nevus 216.9 [facility] [address] [facility] [id number] [address] [place] [address] Jan, [facility] [address] [facility] [id number] [address] [place] [address] Jan, Routine gynecological examin ation V72.31 ; Breast cancer screening V76.10 ; Hot flashes 627.2 ; Atypical nevi 216.9 and Constipation 564.00 [facility] [address] [id number] [address] [place] [address], [place] [address] Jan, [facility] [address] [id number] [address] [place] [address], [place] [address] December, [facility] [address] [id number] [address] [place] [address], [place] [address] December, [facility] [address] [id number] [address] [place] [address], [place] [address] Nov, [facility] [address] [id number] [address] [place] [address], [place] [address] Nov, [facility] [address] [id number] [address] [place] [address], [place] [address] Oct, [facility] [address] [id number] [address] [place] [address], [place] [address] 23 Oct, 2014 [facility] [address] [id number] [address] [place] [address], [place] [address] 18 Oct, 2014 [facility] [address] [id number] [address] [place] [address], [place] [address] 18 Oct, 2014 [facility] [address] [id number] [address] [place] [address], [place] [address] 17 Oct, 2014 [facility] [address] [id number] [address] [place] [address], [place] [address] 17 Oct, 2014 [facility] [address] [id number] [address] [place] [phone] 16 Oct, 2014 [facility] [address] [id number] [address] [place] [address], [place] [address] 16 Oct, 2014 [facility] [address] [id number] [address] [place] [address], [place] [address] 11 Oct, 2014 [facility] [address] [id number] [address] [place] [address], [place] [address] 11 Oct, 2014 [facility] [address] [id number] [address] [place] [address], [place] [address] Sep, 2014 [facility] [address] [id number] [address] [place] [address], [place] [address] Sep, 2014 [facility] [address] [id number] [address] [place] [address], [place] [address] 19 Sep, 2014 [facility] [address] [id number] [address] [place] [address], [place] [address] 18 Sep, 2014 [facility] [address] [id number] [address] [place] [address], [place] [address] Sep, 2014 [facility] [address] [id number] [address] [place] [address], [place] [address] Sep, 2014 [facility] [address] [id number] [address] [place] [address], [place] [address] Sep, 2014 [facility] [address] [id number] [address] [place] [address], [place] [address] Aug, [facility] [address] [id number] [address] [place] [address], [place] [address] Aug, [facility] [address] [id number] [address] [place] [address], [place] [address] Aug, [facility] [address] [id number] [address] [place] [address], [place] [address] Aug, [facility] [address] [id number] [address] [place] [address], [place] [address] Aug, [facility] [address] [id number] [address] [place] [address], [place] [address] Aug, [facility] [address] [id number] [address] [place] [address], [place] [address] Jul, [facility] [address] [id number] [address] [place] [address], [place] [address] Jul, [facility] [address] [id number] [address] [place] [address], [place] [address] Jul, [facility] [address] [id number] [address] [place] [address], [place] [address] Jul, [facility] [address] [id number] [address] [place] [address], [place] [address] Jul, [facility] [address] [id number] [address] [place] [address], [place] [address] Jun, [facility] [address] [id number] [address] [place] [address], [place] [address] Jun, [facility] [address] [id number] [address] [place] [address], [place] [address] Jun, [facility] [address] [id number] [address] [place] [address], [place] [address] Jun, [facility] [address] [id number] [address] [place] [address], [place] [address] Jun, [facility] [address] [id number] [address] [place] [address], [place] [address] Jun, [facility] [address] [id number] [address] [place] [address], [place] [address] May, [facility] [address] [id number] [address] [place] [address], [place] [address] May, [facility] [address] [id number] [address] [place] [address], [place] [address] May, [facility] [address] [id number] [address] [place] [id number] May, [facility] [address] [id number] [address] [place] [address], [place] [address] May, [facility] [address] [id number] [address] [place] [address], [place] [address] May, [facility] [address] [id number] [address] [place] [address], [place] [address] May, [facility] [address] [id number] [address] [place] [address], [place] [address] May, [facility] [address] [id number] [address] [place] [address], [place] [address] May, [facility] [address] [id number] [address] [place] [address], [place] [address] Apr, [facility] [address] [id number] [address] [place] [address], [place] [address] Apr, [facility] [address] [id number] [address] [place] [address], [place] [address] Apr, [facility] [address] [id number] [address] [place] [address], [place] [address] Apr, [facility] [address] [id number] [address] [place] [address], [place] [address] Mar, [facility] [address] [id number] [address] [place] [address], [place] [address] Mar, [facility] [address] [id number] [address] [place] [address], [place] [address] Mar, [facility] [address] [id number] [address] [place] [address], [place] [address] Mar, [facility] [address] [id number] [address] [place] [address], [place] [address] Mar, [facility] [address] [id number] [address] [place] [address], [place] [address] Mar, [facility] [address] [id number] [address] [place] [address], [place] [address] Feb, [facility] [address] [id number] [address] [place] [address], [place] [address] Feb, [facility] [address] [id number] [address] [place] [address], [place] [address] Feb, [facility] [address] [id number] [address] [place] [address], [place] [address] Feb, [facility] [address] [id number] [facility] [place] [address] Feb, 2013 [facility] [address] [id number] [facility] [place] [address] Feb, [facility] [address] [id number] [address] [place] [address], [place] [address] Feb, 2013 [facility] [address] [id number] [address] [place] [address], [place] [address] Feb, 2013 [facility] [address] [id number] [address] [place] [address], [place] [address] Feb, 2013 [facility] [address] [id number] [address] [place] [address], [place] [address] Feb, [facility] [address] [id number] [address] [place] [address], [place] [address] Feb, [facility] [address] [id number] [address] [place] [address], [place] [address] Feb, [facility] [address] [id number] [address] [place] [address], [place] [address] Jan, [facility] [address] [id number] [address] [place] [address], [place] [address] Jan, [facility] [address] [id number] [address] [place] [address], [place] [address] Jan, [facility] [address] [id number] [address] [place] [address], [place] [address] Jan, [facility] [address] [id number] [address] [place] [address], [place] [address] Jan, [facility] [address] [id number] [address] [place] [address], [place] [address] Jan, [facility] [address] [id number] [address] [place] [address], [place] [address] Jan, [facility] [address] [id number] [address] [place] [address], [place] [address] Jan, [facility] [address] [id number] [address] [place] [address], [place] [address] Jan, [facility] [address] [id number] [address] [place] [address], [place] [address] Jan, [facility] [address] [id number] [address] [place] [address], [place] [address] Jan, [facility] [address] [id number] [address] [place] [address], [place] [address] Jan, [facility] [address] [id number] [address] [place] [address], [place] [address] Jan, [facility] [address] [id number] [address] [place] [address], [place] [address] Jan, [facility] [address] [id number] [address] [place] [address], [place] [address] Jan, [facility] [address] [id number] [address] [place] [address], [place] [address] Jan, [facility] [address] [id number] [address] [place] [address], [place] [address] Jan, [facility] [address] [id number] [address] [place] [address], [place] [address] December, [facility] [address] [id number] [address] [place] [address], [place] [address] December, [facility] [address] [id number] [address] [place] [address], [place] [address] December, [facility] [address] [id number] [address] [place] [address], [place] [address] December, [facility] [address] [id number] [address] [place] [address], [place] [address] December, [facility] [address] [id number] [address] [place] [address], [place] [address] December, [facility] [address] [id number] [address] [place] [address], [place] [address] Nov, [facility] [address] [id number] [address] [place] [address], [place] [address] Nov, [facility] [address] [id number] [address] [place] [address], [place] [address] Nov, [facility] [address] [id number] [address] [place] [address], [place] [address] Nov, [facility] [address] [id number] [address] [place] [address], [place] [address] Nov, [facility] [address] [id number] [address] [place] [address], [place] [address] Nov, [facility] [address] [id number] [address] [place] [address], [place] [address] Nov, [facility] [address] [id number] [address] [place] [address], [place] [address] Nov, [facility] [address] [id number] [address] [place] [address], [place] [address] Nov, [facility] [address] [id number] [address] [place] [address], [place] [address] Nov, [facility] [address] [id number] [address] [place] [address], [place] [address] Nov, [facility] [address] [id number] [address] [place] [address], [place] [address] Nov, [facility] [address] [id number] [address] [place] [address], [place] [address] Nov, [facility] [address] [id number] [address] [place] [address], [place] [address] Nov, [facility] [address] [id number] [address] [place] [address], [place] [address] Nov, [facility] [address] [id number] [address] [place] [address], [place] [address] Nov, [facility] [address] [id number] [address] [place] [address], [place] [address] Oct, [facility] [address] [id number] [address] [place] [address], [place] [address] Oct, [facility] [address] [id number] [address] [place] [address], [place] [address] Oct, [facility] [address] [id number] [address] [place] [address], [place] [address] Oct, [facility] [address] [id number] [address] [place] [address], [place] [address] Oct, [facility] [address] [id number] [address] [place] [address], [place] [address] Oct, [facility] [address] [id number] [address] [place] [address], [place] [address] Oct, [facility] [address] [id number] [address] [place] [address], [place] [address] Oct, [facility] [address] [id number] [address] [place] [address], [place] [address] Sep, [facility] [address] [id number] [address] [place] [address], [place] [address] Sep, [facility] [address] [id number] [address] [place] [address], [place] [address] Sep, [facility] [address] [id number] [address] [place] [address], [place] [address] Sep, [facility] [address] [id number] [address] [place] [address], [place] [address] Sep, [facility] [address] [id number] [address] [place] [address], [place] [address] Sep, [facility] [address] [id number] [address] [place] [address], [place] [address] Aug, [facility] [address] [id number] [address] [place] [address], [place] [address] Aug, [facility] [address] [id number] [address] [place] [address], [place] [address] Aug, [facility] [address] [id number] [address] [place] [address], [place] [address] Aug, [facility] [address] [id number] [address] [place] [address], [place] [address] Aug, [facility] [address] [id number] [address] [place] [address], [place] [address] Aug, [facility] [address] [id number] [address] [place] [address], [place] [address] Aug, [facility] [address] [id number] [address] [place] [address], [place] [address] Aug, [facility] [address] [id number] [address] [place] [address], [place] [address] Jul, [facility] [address] [id number] [address] [place] [address], [place] [address] Jul, [facility] [address] [id number] [address] [place] [address], [place] [address] Jul, [facility] [address] [id number] [address] [place] [address], [place] [address] Jul, [facility] [address] [id number] [address] [place] [address], [place] [address] Jul, [facility] [address] [id number] [address] [place] [address], [place] [address] Jul, [facility] [address] [id number] [address] [place] [address], [place] [address] Jul, [facility] [address] [id number] [address] [place] [address], [place] [address] Jul, [facility] [address] [id number] [address] [place] [address], [place] [address] Jul, [facility] [address] [id number] [address] [place] [address], [place] [address] 14 Jun, 2013 [facility] [address] [id number] [address] [place] [address], [place] [address] 14 Jun, 2013 [facility] [address] [id number] [address] [place] [address], [place] [address] Jun, [facility] [address] [id number] [address] [place] [address], [place] [address] Jun, [facility] [address] [id number] [address] [place] [address], [place] [address] Jun, [facility] [address] [id number] [address] [place] [address], [place] [address] Jun, [facility] [address] [id number] [address] [place] [address], [place] [address] 31 May, 2013 [facility] [address] [id number] [address] [place] [address], [place] [address] 31 May, 2013 [facility] [address] [id number] [address] [place] [address], [place] [address] 17 May, 2013 [facility] [address] [id number] [address] [place] [address], [place] [address] 17 May, 2013 [facility] [address] [id number] [address] [place] [address], [place] [address] 14 May, 2013 [facility] [address] [id number] [address] [place] [address], [place] [address] 14 May, 2013 [facility] [address] [id number] [address] [place] [address], [place] [address] 10 May, 2013 [facility] [address] [id number] [address] [place] [address], [place] [address] 10 May, 2013 [facility] [address] [id number] [address] [place] [id number] 07 May, 2013 [facility] [address] [id number] [address] [place] [id number] 20 Sep, 2012 [facility] [address] [id number] [address] [place] [address], [place] [address] 19 Sep, 2012 [facility] [address] [id number] [address] [place] [address], [place] [address] 12 Apr, 2012 [facility] [address] [id number] [address] [place] [address], [place] [address] 24 Sep, 2011 [facility] [address] [id number] [address] [place] [address], [place] [address] 21 Sep, 2011 [facility] [facility] [address] [id number] [address] [place] [address], [place] [id number] 21 Apr, 2011 [facility] [address] [id number] [address] [place] [address], [place] [id number] 14 Apr, 2011 [facility] [address] [id number] [address] [place] [address], [place] [address] 10 Apr, 2011 [facility] [address] [id number] [address] [place] [address], [place] [id number] 06 Apr, 2011 [facility] [address] [id number] [address] [place] [address], [place] [address] 04 Apr, 2011 [facility] [address] [id number] [address] [place] [address], [place] [address] 31 Mar, 2012 [facility] [address] [id number] [address] [place] [address], [place] [address] 28 Mar, 2012 [facility] [address] [id number] [address] [place] [address], [place] [address] 27 Mar, 2012 [facility] [address] [id number] [address] [place] [address], [place] [address] 10 Mar, 2012 [facility] [address] [id number] [address] [place] [address], [place] [id number] 08 Mar, 2012 [facility] [address] [id number] [address] [place] [address], [place] [id number] 03 Mar, 2012 [facility] [address] [id number] [address] [place] [address], [place] [address] Feb, [facility] [address] [id number] [address] [place] [address], [place] [address] Feb, [facility] [address] [id number] [address] [place] [address], [place] [address] Feb, [facility] [address] [id number] [address] [place] [address], [place] [address] Jan, [facility] [address] [id number] [address] [place] [address], [place] [address] Jan, [facility] [address] [id number] [address] [place] [address], [place] [address] Jan, [facility] [address] [id number] [address] [place] [address], [place] [address] Jan, [facility] [address] [id number] [address] [place] [address], [place] [id number] Jan, [facility] [address] [id number] [address] [place] [address], [place] [address] Jan, [facility] [address] [id number] [address] [place] [address], [place] [address] Jan, [facility] [address] [id number] [address] [place] [address], [place] [address] Jan, [facility] [address] [id number] [address] [place] [address], [place] [address] December, [facility] [address] [id number] [address] [place] [address], [place] [address] December, [facility] [address] [id number] [address] [place] [address], [place] [address] December, [facility] [address] [id number] [address] [place] [address], [place] [address] December, [facility] [address] [id number] [address] [place] [address], [place] [address] December, [facility] [address] [id number] [address] [place] [address], [place] [address] December, [facility] [address] [id number] [address] [place] [address], [place] [address] 13 Nov, 2011 [facility] [address] [id number] [address] [place] [address], [place] [address] 13 Nov, 2011 [facility] [address] [id number] [address] [place] [address], [place] [address] Nov, [facility] [address] [id number] [address] [place] [address], [place] [address] Nov, [facility] [address] [id number] [address] [place] [address], [place] [address] Nov, [facility] [address] [id number] [address] [place] [address], [place] [address] Oct, [facility] [address] [id number] [address] [place] [address], [place] [address] 17 Sep, 2011 [facility] [address] [id number] [address] [place] [address], [place] [address] Aug, [facility] [address] [id number] [address] [place] [address], [place] [address] Aug, [facility] [address] [id number] [address] [place] [address], [place] [address] Aug, [facility] [address] [id number] [address] [place] [address], [place] [address] Aug, [facility] [address] [id number] [address] [place] [address], [place] [address] Aug, [facility] [address] [id number] [address] [place] [address], [place] [address] Jul, [facility] [address] [id number] [address] [place] [address], [place] [address] Jul, [facility] [address] [id number] [address] [place] [address], [place] [address] Jun, [facility] [address] [id number] [address] [place] [address], [place] [address] Jun, [facility] [address] [id number] [address] [place] [address], [place] [address] Jun, [facility] [address] [id number] [address] [place] [address], [place] [address] May, [facility] [address] [id number] [address] [place] [address], [place] [address] May, [facility] [address] [id number] [address] [place] [address], [place] [address] 16 Oct, 2010 [facility] [address] [id number] [address] [place] [address], [place] [address] Oct, [facility] [address] [id number] [address] [place] [address], [place] [address] 29 Jul, 2010 [facility] [address] [id number] [address] [place] [address], [place] [address] 08 Jul, 2010 [facility] [address] [id number] [address] [place] [address], [place] [address] Jul, [facility] [address] [id number] [address] [place] [address], [place] [address] Jul, [facility] [address] [id number] [address] [place] [address], [place] [address] Jul, [facility] [address] [id number] [address] [place] [address], [place] [address] Jun, [facility] [address] [id number] [address] [place] [address], [place] [address] Jun, [facility] [address] [id number] [address] [place] [address], [place] [address] Jun, [facility] [address] [id number] [address] [place] [address], [place] [address] May, [facility] [address] [facility] [id number] [address] [place] [address] 16 Mar, 2010 IMMUNIZATIONS No Known Immunizations SOCIAL HISTORY Never Assessed REASON FOR VISIT PLAN OF CARE VITAL SIGNS MEDICATIONS Unknown Medications RESULTS No Results PROCEDURES Procedure Date Ordered Result Body Site GLYCATED HEMOGLOBIN TEST May 04, 2013 MICROALBUMIN, SEMIQUANT May 04, 2013 INSTRUCTIONS MEDICATIONS ADMINISTERED No Known Medications MEDICAL (GENERAL) HISTORY Type Description Date Medical History Hypertension Medical History Chronic obstructive pulmonary disease Medical History Type 2 diabetes mellitus Medical History Psychiatric disorders depression Surgical History Hysterectomy total abdominal 1995 Surgical History Orthopedic Surgery Surgical History Scleral buckle Hospitalization History No Hospitalization history informati on
--- OUTSIDE RECORDS SUMMARY | 2020-03-12 09:30 | XMS REPORT ---
Author Author Caren LYLE Organization [facility] Address [address] [place] [address] Care Team Providers Care Binder Fixer Name Role Phone LAUIRE LYLE Unavailable PROBLEMS Type Condition ICD9-CM Code CSQ63-BO Code Onset Dates Condition S tatus SNOMED Code Problem COPD (chronic obstructive pulmonary disease) J44.9 Active 08377267 Problem Diabetes E11.9 Active 76245976 Problem Diabetic neuropathy E11.40 Active 347673943 Problem Arthritis M19.90 Active 6894369 ALLERGIES No Information ENCOUNTERS Encounter Location Date Diagnosis [facility] [address] [facility] [id number] [address] [place] [address] December, [facility] [address] [id number] [address] [place] [address] Aug, Arthritis M19.90 [facility] [address] [facility] [id number] [address] [place] [address] Jul, [facility] [address] [facility] [id number] [address] [place] [address] Jul, [facility] [address] [facility] [id number] [address] [place] [address] Jul, [facility] [address] [id number] [address] [place] [address] Jul, [facility] [address] [facility] [id number] [address] [place] [address] Jul, Diabetes E11.9 ; Diabetic ne uropathy E11.40 ; Arthritis M19.90 and COPD (chronic obstructive pulmonary disease) J44.9 [facility] [address] [facility] [id number] [address] [place] [address] Jul, [facility] [address] [id number] [address] [place] [address], [place] [address] 23 Jun, 2015 [facility] [address] [id number] [address] [place] [address], [place] [address] 23 Jun, 2015 [facility] [address] [id number] [address] [place] [address], [place] [address] 17 Jun, 2014 [facility] [address] [id number] [address] [place] [address], [place] [address] 10 Jun, 2014 [facility] [address] [id number] [address] [place] [address], [place] [address] 15 May, 2015 [facility] [address] [id number] [address] [place] [address], [place] [address] 13 May, 2015 [facility] [address] [id number] [address] [place] [address], [place] [address] 07 May, 2015 [facility] [address] [id number] [address] [place] [address], [place] [address] 22 Sep, 2014 [facility] [address] [id number] [address] [place] [address], [place] [address] 21 Sep, 2014 [facility] [address] [id number] [address] [place] [address], [place] [address] 21 Sep, 2014 [facility] [address] [id number] [address] [place] [address], [place] [address] 15 Sep, 2014 [facility] [address] [id number] [address] [place] [address], [place] [address] 11 Sep, 2014 [facility] [address] [id number] [address] [place] [address], [place] [address] 09 Sep, 2014 [facility] [address] [id number] [address] [place] [address], [place] [address] 08 Sep, 2014 [facility] [address] [id number] [address] [place] [address], [place] [address] 03 Sep, 2014 [facility] [address] [id number] [address] [place] [address] [address] Apr, [facility] [address] [facility] [id number] [address] [place] [address] Mar, [facility] [address] [facility] [id number] [address] [place] [address] Mar, [facility] [address] [facility] [id number] [address] [place] [address] Mar, [facility] [address] [facility] [id number] [address] [place] [address] Mar, [facility] [address] [facility] [id number] [address] [place] [address] Mar, [facility] [address] [facility] [id number] [address] [place] [address] Mar, Diabetes mellitus 250.00 ; C OPD (chronic obstructive pulmonary disease) 496 ; Anxiety 300.00 and Arthritis 716.90 [facility] [address] [facility] [id number] [address] [place] [address] Feb, [facility] [address] [facility] [id number] [address] [place] [address] Feb, [facility] [address] [facility] [id number] [address] [place] [address] Feb, [facility] [address] [facility] [id number] [address] [place] [address] Feb, [facility] [address] [facility] [id number] [address] [place] [address] Jan, Seborrheic keratosis 702.19 and Nevus 216.9 [facility] [address] [facility] [id number] [address] [place] [address] Jan, [facility] [address] [facility] [id number] [address] [place] [address] Jan, Routine gynecological examin ation V72.31 ; Breast cancer screening V76.10 ; Hot flashes 627.2 ; Atypical nevi 216.9 and Constipation 564.00 [facility] [address] [id number] [address] [place] [address], [place] [address] Jan, [facility] [address] [id number] [address] [place] [address], [place] [address] December, [facility] [address] [id number] [address] [place] [address], [place] [address] December, [facility] [address] [id number] [address] [place] [address], [place] [address] Nov, [facility] [address] [id number] [address] [place] [address], [place] [address] Nov, [facility] [address] [id number] [address] [place] [address], [place] [address] Oct, [facility] [address] [id number] [address] [place] [address], [place] [address] 23 Oct, 2014 [facility] [address] [id number] [address] [place] [address], [place] [address] 18 Oct, 2014 [facility] [address] [id number] [address] [place] [address], [place] [address] 18 Oct, 2014 [facility] [address] [id number] [address] [place] [address], [place] [address] 17 Oct, 2014 [facility] [address] [id number] [address] [place] [address], [place] [address] 17 Oct, 2014 [facility] [address] [id number] [address] [place] [address] 16 Oct, 2014 [facility] [address] [id number] [address] [place] [address], [place] [address] 16 Oct, 2014 [facility] [address] [id number] [address] [place] [address], [place] [address] 11 Oct, 2014 [facility] [address] [id number] [address] [place] [address], [place] [address] 11 Oct, 2014 [facility] [address] [id number] [address] [place] [address], [place] [address] Sep, 2014 [facility] [address] [id number] [address] [place] [address], [place] [address] Sep, 2014 [facility] [address] [id number] [address] [place] [address], [place] [address] 19 Sep, 2014 [facility] [address] [id number] [address] [place] [address], [place] [address] 18 Sep, 2014 [facility] [address] [id number] [address] [place] [address], [place] [address] Sep, 2014 [facility] [address] [id number] [address] [place] [address], [place] [address] Sep, 2014 [facility] [address] [id number] [address] [place] [address], [place] [address] Sep, 2014 [facility] [address] [id number] [address] [place] [address], [place] [address] Aug, [facility] [address] [id number] [address] [place] [address], [place] [address] Aug, [facility] [address] [id number] [address] [place] [address], [place] [address] Aug, [facility] [address] [id number] [address] [place] [address], [place] [address] Aug, [facility] [address] [id number] [address] [place] [address], [place] [address] Aug, [facility] [address] [id number] [address] [place] [address], [place] [address] Aug, [facility] [address] [id number] [address] [place] [address], [place] [address] Jul, [facility] [address] [id number] [address] [place] [address], [place] [address] Jul, [facility] [address] [id number] [address] [place] [address], [place] [address] Jul, [facility] [address] [id number] [address] [place] [address], [place] [address] Jul, [facility] [address] [id number] [address] [place] [address], [place] [address] Jul, [facility] [address] [id number] [address] [place] [address], [place] [address] Jun, [facility] [address] [id number] [address] [place] [address], [place] [address] Jun, [facility] [address] [id number] [address] [place] [address], [place] [address] Jun, [facility] [address] [id number] [address] [place] [address], [place] [address] Jun, [facility] [address] [id number] [address] [place] [address], [place] [address] Jun, [facility] [address] [id number] [address] [place] [address], [place] [address] Jun, [facility] [address] [id number] [address] [place] [address], [place] [address] May, [facility] [address] [id number] [address] [place] [address], [place] [address] May, [facility] [address] [id number] [address] [place] [address], [place] [address] May, [facility] [address] [id number] [address] [place] [address] May, [facility] [address] [id number] [address] [place] [address], [place] [address] May, [facility] [address] [id number] [address] [place] [address], [place] [address] May, [facility] [address] [id number] [address] [place] [address], [place] [address] May, [facility] [address] [id number] [address] [place] [address], [place] [address] May, [facility] [address] [id number] [address] [place] [address], [place] [address] May, [facility] [address] [id number] [address] [place] [address], [place] [address] Apr, [facility] [address] [id number] [address] [place] [address], [place] [address] Apr, [facility] [address] [id number] [address] [place] [address], [place] [address] Apr, [facility] [address] [id number] [address] [place] [address], [place] [address] Apr, [facility] [address] [id number] [address] [place] [address], [place] [address] Mar, [facility] [address] [id number] [address] [place] [address], [place] [address] Mar, [facility] [address] [id number] [address] [place] [address], [place] [address] Mar, [facility] [address] [id number] [address] [place] [address], [place] [address] Mar, [facility] [address] [id number] [address] [place] [address], [place] [address] Mar, [facility] [address] [id number] [address] [place] [address], [place] [address] Mar, [facility] [address] [id number] [address] [place] [address], [place] [address] Feb, [facility] [address] [id number] [address] [place] [address], [place] [address] Feb, [facility] [address] [id number] [address] [place] [address], [place] [address] Feb, [facility] [address] [id number] [address] [place] [address], [place] [address] Feb, [facility] [address] [id number] [facility] [place] [address] Feb, 2013 [facility] [address] [id number] [facility] [place] [address] Feb, [facility] [address] [id number] [address] [place] [address], [place] [address] Feb, 2013 [facility] [address] [id number] [address] [place] [address], [place] [address] Feb, 2013 [facility] [address] [id number] [address] [place] [address], [place] [address] Feb, 2013 [facility] [address] [id number] [address] [place] [address], [place] [address] Feb, [facility] [address] [id number] [address] [place] [address], [place] [address] Feb, [facility] [address] [id number] [address] [place] [address], [place] [address] Feb, [facility] [address] [id number] [address] [place] [address], [place] [address] Jan, [facility] [address] [id number] [address] [place] [address], [place] [address] Jan, [facility] [address] [id number] [address] [place] [address], [place] [address] Jan, [facility] [address] [id number] [address] [place] [address], [place] [address] Jan, [facility] [address] [id number] [address] [place] [address], [place] [address] Jan, [facility] [address] [id number] [address] [place] [address], [place] [address] Jan, [facility] [address] [id number] [address] [place] [address], [place] [address] Jan, [facility] [address] [id number] [address] [place] [address], [place] [address] Jan, [facility] [address] [id number] [address] [place] [address], [place] [address] Jan, [facility] [address] [id number] [address] [place] [address], [place] [address] Jan, [facility] [address] [id number] [address] [place] [address], [place] [address] Jan, [facility] [address] [id number] [address] [place] [address], [place] [address] Jan, [facility] [address] [id number] [address] [place] [address], [place] [address] Jan, [facility] [address] [id number] [address] [place] [address], [place] [address] Jan, [facility] [address] [id number] [address] [place] [address], [place] [address] Jan, [facility] [address] [id number] [address] [place] [address], [place] [address] Jan, [facility] [address] [id number] [address] [place] [address], [place] [address] Jan, [facility] [address] [id number] [address] [place] [address], [place] [address] December, [facility] [address] [id number] [address] [place] [address], [place] [address] December, [facility] [address] [id number] [address] [place] [address], [place] [address] December, [facility] [address] [id number] [address] [place] [address], [place] [address] December, [facility] [address] [id number] [address] [place] [address], [place] [address] December, [facility] [address] [id number] [address] [place] [address], [place] [address] December, [facility] [address] [id number] [address] [place] [address], [place] [address] Nov, [facility] [address] [id number] [address] [place] [address], [place] [address] Nov, [facility] [address] [id number] [address] [place] [address], [place] [address] Nov, [facility] [address] [id number] [address] [place] [address], [place] [address] Nov, [facility] [address] [id number] [address] [place] [address], [place] [address] Nov, [facility] [address] [id number] [address] [place] [address], [place] [address] Nov, [facility] [address] [id number] [address] [place] [address], [place] [address] Nov, [facility] [address] [id number] [address] [place] [address], [place] [address] Nov, [facility] [address] [id number] [address] [place] [address], [place] [address] Nov, [facility] [address] [id number] [address] [place] [address], [place] [address] Nov, [facility] [address] [id number] [address] [place] [address], [place] [address] Nov, [facility] [address] [id number] [address] [place] [address], [place] [address] Nov, [facility] [address] [id number] [address] [place] [address], [place] [address] Nov, [facility] [address] [id number] [address] [place] [address], [place] [address] Nov, [facility] [address] [id number] [address] [place] [address], [place] [address] Nov, [facility] [address] [id number] [address] [place] [address], [place] [address] Nov, [facility] [address] [id number] [address] [place] [address], [place] [address] Oct, [facility] [address] [id number] [address] [place] [address], [place] [address] Oct, [facility] [address] [id number] [address] [place] [address], [place] [address] Oct, [facility] [address] [id number] [address] [place] [address], [place] [address] Oct, [facility] [address] [id number] [address] [place] [address], [place] [address] Oct, [facility] [address] [id number] [address] [place] [address], [place] [address] Oct, [facility] [address] [id number] [address] [place] [address], [place] [address] Oct, [facility] [address] [id number] [address] [place] [address], [place] [address] Oct, [facility] [address] [id number] [address] [place] [address], [place] [address] Sep, [facility] [address] [id number] [address] [place] [address], [place] [address] Sep, [facility] [address] [id number] [address] [place] [address], [place] [address] Sep, [facility] [address] [id number] [address] [place] [address], [place] [address] Sep, [facility] [address] [id number] [address] [place] [address], [place] [address] Sep, [facility] [address] [id number] [address] [place] [address], [place] [address] Sep, [facility] [address] [id number] [address] [place] [address], [place] [address] Aug, [facility] [address] [id number] [address] [place] [address], [place] [address] Aug, [facility] [address] [id number] [address] [place] [address], [place] [address] Aug, [facility] [address] [id number] [address] [place] [address], [place] [address] Aug, [facility] [address] [id number] [address] [place] [address], [place] [address] Aug, [facility] [address] [id number] [address] [place] [address], [place] [address] Aug, [facility] [address] [id number] [address] [place] [address], [place] [address] Aug, [facility] [address] [id number] [address] [place] [address], [place] [address] Aug, [facility] [address] [id number] [address] [place] [address], [place] [address] Jul, [facility] [address] [id number] [address] [place] [address], [place] [address] Jul, [facility] [address] [id number] [address] [place] [address], [place] [address] Jul, [facility] [address] [id number] [address] [place] [address], [place] [address] Jul, [facility] [address] [id number] [address] [place] [address], [place] [address] Jul, [facility] [address] [id number] [address] [place] [address], [place] [address] Jul, [facility] [address] [id number] [address] [place] [address], [place] [address] Jul, [facility] [address] [id number] [address] [place] [address], [place] [address] Jul, [facility] [address] [id number] [address] [place] [address], [place] [address] Jul, [facility] [address] [id number] [address] [place] [address], [place] [address] 14 Jun, 2013 [facility] [address] [id number] [address] [place] [address], [place] [address] 14 Jun, 2013 [facility] [address] [id number] [address] [place] [address], [place] [address] Jun, [facility] [address] [id number] [address] [place] [address], [place] [address] Jun, [facility] [address] [id number] [address] [place] [address], [place] [address] Jun, [facility] [address] [id number] [address] [place] [address], [place] [address] Jun, [facility] [address] [id number] [address] [place] [address], [place] [address] 31 May, 2013 [facility] [address] [id number] [address] [place] [address], [place] [address] 31 May, 2013 [facility] [address] [id number] [address] [place] [address], [place] [address] 17 May, 2013 [facility] [address] [id number] [address] [place] [address], [place] [address] 17 May, 2013 [facility] [address] [id number] [address] [place] [address], [place] [address] 14 May, 2013 [facility] [address] [id number] [address] [place] [address], [place] [address] 14 May, 2013 [facility] [address] [id number] [address] [place] [address], [place] [address] 10 May, 2013 [facility] [address] [id number] [address] [place] [address], [place] [address] 10 May, 2013 [facility] [address] [id number] [address] [place] [address] 07 May, 2013 [facility] [address] [id number] [address] [place] [address] 20 Sep, 2012 [facility] [address] [id number] [address] [place] [address], [place] [address] 19 Sep, 2012 [facility] [address] [id number] [address] [place] [address], [place] [address] 12 Apr, 2012 [facility] [address] [id number] [address] [place] [address], [place] [address] 24 Sep, 2011 [facility] [address] [id number] [address] [place] [address], [place] [address] 21 Sep, 2011 [facility] [address] [id number] [address] [place] [address], [place] [address] 21 Apr, 2011 [facility] [address] [id number] [address] [place] [address], [place] [address] 14 Apr, 2011 [facility] [address] [id number] [address] [place] [address], [place] [address] 10 Apr, 2011 [facility] [address] [id number] [address] [place] [address], [place] [address] 06 Apr, 2011 [facility] [address] [id number] [address] [place] [address], [place] [address] 04 Apr, 2011 [facility] [address] [id number] [address] [place] [address], [place] [address] 31 Mar, 2012 [facility] [address] [address] [id number] [address] [place] [address], [place] [address] 28 Mar, 2012 [facility] [address] [id number] [address] [place] [address], [place] [address] 27 Mar, 2012 [facility] [address] [id number] [address] [place] [address], [place] [address] 10 Mar, 2012 [facility] [address] [id number] [address] [place] [address], [place] [address] 08 Mar, 2012 [facility] [address] [id number] [address] [place] [address], [place] [address] 03 Mar, 2012 [facility] [address] [id number] [address] [place] [address], [place] [address] Feb, [facility] [address] [id number] [address] [place] [address], [place] [address] Feb, [facility] [address] [id number] [address] [place] [address], [place] [address] Feb, [facility] [address] [id number] [address] [place] [address], [place] [address] Jan, [facility] [address] [id number] [address] [place] [address], [place] [address] Jan, [facility] [address] [id number] [address] [place] [address], [place] [address] Jan, [facility] [address] [id number] [address] [place] [address], [place] [address] Jan, [facility] [address] [id number] [address] [place] [address], [place] [address] Jan, [facility] [address] [id number] [address] [place] [address], [place] [address] Jan, [facility] [address] [id number] [address] [place] [address], [place] [address] Jan, [facility] [address] [id number] [address] [place] [address], [place] [address] Jan, [facility] [address] [id number] [address] [place] [address], [place] [address] December, [facility] [address] [id number] [address] [place] [address], [place] [address] December, [facility] [address] [id number] [address] [place] [address], [place] [address] December, [facility] [address] [id number] [address] [place] [address], [place] [address] December, [facility] [address] [id number] [address] [place] [address], [place] [address] December, [facility] [address] [id number] [address] [place] [address], [place] [address] December, [facility] [address] [id number] [address] [place] [address], [place] [address] 13 Nov, 2011 [facility] [address] [id number] [address] [place] [address], [place] [address] 13 Nov, 2011 [facility] [address] [id number] [address] [place] [address], [place] [address] Nov, [facility] [address] [id number] [address] [place] [address], [place] [address] Nov, [facility] [address] [id number] [address] [place] [address], [place] [address] Nov, [facility] [address] [id number] [address] [place] [address], [place] [address] Oct, [facility] [address] [id number] [address] [place] [address], [place] [address] 17 Sep, 2011 [facility] [address] [id number] [address] [place] [address], [place] [address] Aug, [facility] [address] [id number] [address] [place] [address], [place] [address] Aug, [facility] [address] [id number] [address] [place] [address], [place] [address] Aug, [facility] [address] [id number] [address] [place] [address], [place] [address] Aug, [facility] [address] [id number] [address] [place] [address], [place] [address] Aug, [facility] [address] [id number] [address] [place] [address], [place] [address] Jul, [facility] [address] [id number] [address] [place] [address], [place] [address] Jul, [facility] [address] [id number] [address] [place] [address], [place] [address] Jun, [facility] [address] [id number] [address] [place] [address], [place] [address] Jun, [facility] [address] [id number] [address] [place] [address], [place] [address] Jun, [facility] [address] [id number] [address] [place] [address], [place] [address] May, [facility] [address] [id number] [address] [place] [address], [place] [address] May, [facility] [address] [id number] [address] [place] [address], [place] [address] 16 Oct, 2010 [facility] [address] [id number] [address] [place] [address], [place] [address] Oct, [facility] [address] [id number] [address] [place] [address], [place] [address] 29 Jul, 2010 [facility] [address] [id number] [address] [place] [address], [place] [address] 08 Jul, 2010 [facility] [address] [id number] [address] [place] [address], [place] [address] Jul, [facility] [address] [id number] [address] [place] [address], [place] [address] Jul, [facility] [address] [id number] [address] [place] [address], [place] [address] Jul, [facility] [address] [id number] [address] [place] [address], [place] [address] Jun, [facility] [address] [id number] [address] [place] [address], [place] [address] Jun, [facility] [address] [id number] [address] [place] [address], [place] [address] Jun, [facility] [address] [id number] [address] [place] [address], [place] [address] May, [facility] [address] [facility] [id number] [address] [place] [address] 16 Mar, 2010 IMMUNIZATIONS No Known Immunizations [...]
--- OUTSIDE RECORDS SUMMARY | 2020-03-12 09:30 | XMS REPORT ---
Author Author Caren LYLE Organization [facility] Address [address] [place] [address] Care Team Providers Care Prompt Care Rn Name Role Phone LAURIE LYLE Unavailable PROBLEMS Type Condition ICD9-CM Code [id number] Code Onset Dates Condition S tatus SNOMED Code Problem COPD (chronic obstructive pulmonary disease) J44.9 Active 37543540 Problem Diabetes E11.9 Active 29418785 Problem Diabetic neuropathy E11.40 Active 235873065 Problem Arthritis M19.90 Active [id number] ALLERGIES No Information ENCOUNTERS Encounter Location Date Diagnosis [facility] [address] [facility] [id number] [address] [place] [address] December, [facility] [address] [id number] [address] [place] [address] Aug, Arthritis M19.90 [facility] [address] [facility] [id number] [address] [place] [id number] Jul, [facility] [address] [facility] [id number] [address] [place] [address] Jul, [facility] [address] [facility] [id number] [address] [place] [address] Jul, [facility] [address] [id number] [address] [place] [address] Jul, [facility] [address] [facility] [id number] [address] [place] [address] Jul, Diabetes E11.9 ; Diabetic ne uropathy E11.40 ; Arthritis M19.90 and COPD (chronic obstructive pulmonary disease) J44.9 [facility] [address] [facility] [id number] [address] [place] [id number] Jul, [facility] [address] [id number] [address] [place] [address], [place] [address] 23 Jun, 2015 [facility] [address] [id number] [address] [place] [address], [place] [address] 23 Jun, 2015 [facility] [address] [id number] [address] [place] [address], [place] [address] 17 Jun, 2014 [facility] [address] [id number] [address] [place] [address], [place] [address] 10 Jun, 2014 [facility] [address] [id number] [address] [place] [address], [place] [address] 15 May, 2015 [facility] [address] [id number] [address] [place] [address], [place] [address] 13 May, 2015 [facility] [address] [id number] [address] [place] [address], [place] [address] 07 May, 2015 [facility] [address] [id number] [address] [place] [address], [place] [address] 22 Sep, 2014 [facility] [address] [id number] [address] [place] [address], [place] [address] 21 Sep, 2014 [facility] [address] [id number] [address] [place] [address], [place] [address] 21 Sep, 2014 [facility] [address] [id number] [address] [place] [address], [place] [address] 15 Sep, 2014 [facility] [address] [id number] [address] [place] [address], [place] [address] 11 Sep, 2014 [facility] [address] [id number] [address] [place] [address], [place] [address] 09 Sep, 2014 [facility] [address] [id number] [address] [place] [address], [place] [address] 08 Sep, 2014 [facility] [address] [id number] [address] [place] [address], [place] [address] 03 Sep, 2014 [facility] [address] [id number] [address] [place] [address] [address] Apr, [facility] [address] [facility] [id number] [address] [place] [address] Mar, [facility] [address] [facility] [id number] [address] [place] [address] Mar, [facility] [address] [facility] [id number] [address] [place] [phone] Mar, [facility] [address] [facility] [id number] [address] [place] [address] Mar, [facility] [address] [facility] [id number] [address] [place] [address] Mar, [facility] [address] [facility] [id number] [address] [place] [address] Mar, Diabetes mellitus 250.00 ; C OPD (chronic obstructive pulmonary disease) 496 ; Anxiety 300.00 and Arthritis 716.90 [facility] [address] [facility] [id number] [address] [place] [address] Feb, [facility] [address] [facility] [id number] [address] [place] [address] Feb, [facility] [address] [facility] [id number] [address] [place] [address] Feb, [facility] [address] [facility] [id number] [address] [place] [address] Feb, [facility] [address] [facility] [id number] [address] [place] [address] Jan, Seborrheic keratosis 702.19 and Nevus 216.9 [facility] [address] [facility] [id number] [address] [place] [address] Jan, [facility] [address] [facility] [id number] [address] [place] [address] Jan, Routine gynecological examin ation V72.31 ; Breast cancer screening V76.10 ; Hot flashes 627.2 ; Atypical nevi 216.9 and Constipation 564.00 [facility] [address] [id number] [address] [place] [address], [place] [address] Jan, [facility] [address] [id number] [address] [place] [address], [place] [address] December, [facility] [address] [id number] [address] [place] [address], [place] [address] December, [facility] [address] [id number] [address] [place] [address], [place] [address] Nov, [facility] [address] [id number] [address] [place] [address], [place] [address] Nov, [facility] [address] [id number] [address] [place] [address], [place] [address] Oct, [facility] [address] [id number] [address] [place] [address], [place] [address] 23 Oct, 2014 [facility] [address] [id number] [address] [place] [address], [place] [address] 18 Oct, 2014 [facility] [address] [id number] [address] [place] [address], [place] [address] 18 Oct, 2014 [facility] [address] [id number] [address] [place] [address], [place] [address] 17 Oct, 2014 [facility] [address] [id number] [address] [place] [address], [place] [address] 17 Oct, 2014 [facility] [address] [id number] [address] [place] [address] 16 Oct, 2014 [facility] [address] [id number] [address] [place] [address], [place] [address] 16 Oct, 2014 [facility] [address] [id number] [address] [place] [address], [place] [address] 11 Oct, 2014 [facility] [address] [id number] [address] [place] [address], [place] [address] 11 Oct, 2014 [facility] [address] [id number] [address] [place] [address], [place] [address] Sep, 2014 [facility] [address] [id number] [address] [place] [address], [place] [address] Sep, 2014 [facility] [address] [id number] [address] [place] [address], [place] [address] 19 Sep, 2014 [facility] [address] [id number] [address] [place] [address], [place] [address] 18 Sep, 2014 [facility] [address] [id number] [address] [place] [address], [place] [address] Sep, 2014 [facility] [address] [id number] [address] [place] [address], [place] [address] Sep, 2014 [facility] [address] [id number] [address] [place] [address], [place] [address] Sep, 2014 [facility] [address] [id number] [address] [place] [address], [place] [address] Aug, [facility] [address] [id number] [address] [place] [address], [place] [address] Aug, [facility] [address] [id number] [address] [place] [address], [place] [address] Aug, [facility] [address] [id number] [address] [place] [address], [place] [address] Aug, [facility] [address] [id number] [address] [place] [address], [place] [address] Aug, [facility] [address] [id number] [address] [place] [address], [place] [address] Aug, [facility] [address] [id number] [address] [place] [address], [place] [address] Jul, [facility] [address] [id number] [address] [place] [address], [place] [address] Jul, [facility] [address] [id number] [address] [place] [address], [place] [address] Jul, [facility] [address] [id number] [address] [place] [address], [place] [address] Jul, [facility] [address] [id number] [address] [place] [address], [place] [address] Jul, [facility] [address] [id number] [address] [place] [address], [place] [address] Jun, [facility] [address] [id number] [address] [place] [address], [place] [address] Jun, [facility] [address] [id number] [address] [place] [address], [place] [address] Jun, [facility] [address] [id number] [address] [place] [address], [place] [address] Jun, [facility] [address] [id number] [address] [place] [address], [place] [address] Jun, [facility] [address] [id number] [address] [place] [address], [place] [address] Jun, [facility] [address] [id number] [address] [place] [address], [place] [address] May, [facility] [address] [id number] [address] [place] [address], [place] [address] May, [facility] [address] [id number] [address] [place] [address], [place] [address] May, [facility] [address] [id number] [address] [place] [address] May, [facility] [address] [id number] [address] [place] [address], [place] [address] May, [facility] [address] [id number] [address] [place] [address], [place] [address] May, [facility] [address] [id number] [address] [place] [address], [place] [address] May, [facility] [address] [id number] [address] [place] [address], [place] [address] May, [facility] [address] [id number] [address] [place] [address], [place] [address] May, [facility] [address] [id number] [address] [place] [address], [place] [address] Apr, [facility] [address] [id number] [address] [place] [address], [place] [address] Apr, [facility] [address] [id number] [address] [place] [address], [place] [address] Apr, [facility] [address] [id number] [address] [place] [address], [place] [address] Apr, [facility] [address] [id number] [address] [place] [address], [place] [address] Mar, [facility] [address] [id number] [address] [place] [address], [place] [address] Mar, [facility] [address] [id number] [address] [place] [address], [place] [address] Mar, [facility] [address] [id number] [address] [place] [address], [place] [address] Mar, [facility] [address] [id number] [address] [place] [address], [place] [address] Mar, [facility] [address] [id number] [address] [place] [address], [place] [address] Mar, [facility] [address] [id number] [address] [place] [address], [place] [address] Feb, [facility] [address] [id number] [address] [place] [address], [place] [address] Feb, [facility] [address] [id number] [address] [place] [address], [place] [address] Feb, [facility] [address] [id number] [address] [place] [address], [place] [address] Feb, [facility] [address] [id number] [facility] [place] [address] Feb, 2013 [facility] [address] [id number] [facility] [place] [address] Feb, [facility] [address] [id number] [address] [place] [address], [place] [address] Feb, 2013 [facility] [address] [id number] [address] [place] [address], [place] [address] Feb, 2013 [facility] [address] [id number] [address] [place] [address], [place] [address] Feb, 2013 [facility] [address] [id number] [address] [place] [address], [place] [address] Feb, [facility] [address] [id number] [address] [place] [address], [place] [address] Feb, [facility] [address] [id number] [address] [place] [address], [place] [address] Feb, [facility] [address] [id number] [address] [place] [address], [place] [address] Jan, [facility] [address] [id number] [address] [place] [address], [place] [address] Jan, [facility] [address] [id number] [address] [place] [address], [place] [address] Jan, [facility] [address] [id number] [address] [place] [address], [place] [address] Jan, [facility] [address] [id number] [address] [place] [address], [place] [address] Jan, [facility] [address] [id number] [address] [place] [address], [place] [address] Jan, [facility] [address] [id number] [address] [place] [address], [place] [address] Jan, [facility] [address] [id number] [address] [place] [address], [place] [address] Jan, [facility] [address] [id number] [address] [place] [address], [place] [address] Jan, [facility] [address] [id number] [address] [place] [address], [place] [address] Jan, [facility] [address] [id number] [address] [place] [address], [place] [address] Jan, [facility] [address] [id number] [address] [place] [address], [place] [address] Jan, [facility] [address] [id number] [address] [place] [address], [place] [address] Jan, [facility] [address] [id number] [address] [place] [address], [place] [address] Jan, [facility] [address] [id number] [address] [place] [address], [place] [address] Jan, [facility] [address] [id number] [address] [place] [address], [place] [address] Jan, [facility] [address] [id number] [address] [place] [address], [place] [address] Jan, [facility] [address] [id number] [address] [place] [address], [place] [address] December, [facility] [address] [id number] [address] [place] [address], [place] [address] December, [facility] [address] [id number] [address] [place] [address], [place] [address] December, [facility] [address] [id number] [address] [place] [address], [place] [address] December, [facility] [address] [id number] [address] [place] [address], [place] [address] December, [facility] [address] [id number] [address] [place] [address], [place] [address] December, [facility] [address] [id number] [address] [place] [address], [place] [address] Nov, [facility] [address] [id number] [address] [place] [address], [place] [address] Nov, [facility] [address] [id number] [address] [place] [address], [place] [address] Nov, [facility] [address] [id number] [address] [place] [address], [place] [address] Nov, [facility] [address] [id number] [address] [place] [address], [place] [address] Nov, [facility] [address] [id number] [address] [place] [address], [place] [address] Nov, [facility] [address] [id number] [address] [place] [address], [place] [address] Nov, [facility] [address] [id number] [address] [place] [address], [place] [address] Nov, [facility] [address] [id number] [address] [place] [address], [place] [address] Nov, [facility] [address] [id number] [address] [place] [address], [place] [address] Nov, [facility] [address] [id number] [address] [place] [address], [place] [address] Nov, [facility] [address] [id number] [address] [place] [address], [place] [address] Nov, [facility] [address] [id number] [address] [place] [address], [place] [id number] Nov, [facility] [address] [id number] [address] [place] [address], [place] [address] Nov, [facility] [address] [id number] [address] [place] [address], [place] [address] Nov, [facility] [address] [id number] [address] [place] [address], [place] [address] Nov, [facility] [address] [id number] [address] [place] [address], [place] [id number] Oct, [facility] [address] [id number] [address] [place] [address], [place] [address] Oct, [facility] [address] [id number] [address] [place] [address], [place] [address] Oct, [facility] [address] [id number] [address] [place] [address], [place] [id number] Oct, [facility] [address] [id number] [address] [place] [address], [place] [address] Oct, [facility] [address] [id number] [address] [place] [address], [place] [id number] Oct, [facility] [address] [id number] [address] [place] [address], [place] [id number] Oct, [facility] [address] [id number] [address] [place] [address], [place] [id number] Oct, [facility] [address] [id number] [address] [place] [address], [place] [address] Sep, [facility] [address] [id number] [address] [place] [address], [place] [address] Sep, [facility] [address] [id number] [address] [place] [address], [place] [address] Sep, [facility] [address] [id number] [address] [place] [address], [place] [address] Sep, [facility] [address] [id number] [address] [place] [address], [place] [address] Sep, [facility] [address] [id number] [address] [place] [address], [place] [address] Sep, [facility] [address] [id number] [address] [place] [address], [place] [address] Aug, [facility] [address] [id number] [address] [place] [address], [place] [address] Aug, [facility] [address] [id number] [address] [place] [address], [place] [address] Aug, [facility] [address] [id number] [address] [place] [address], [place] [address] Aug, [facility] [address] [id number] [address] [place] [address], [place] [address] Aug, [facility] [address] [id number] [address] [place] [address], [place] [id number] Aug, [facility] [address] [id number] [address] [place] [address], [place] [address] Aug, [facility] [address] [id number] [address] [place] [address], [place] [address] Aug, [facility] [address] [id number] [address] [place] [address], [place] [address] Jul, [facility] [address] [id number] [address] [place] [address], [place] [address] Jul, [facility] [address] [id number] [address] [place] [address], [place] [address] Jul, [facility] [address] [id number] [address] [place] [address], [place] [address] Jul, [facility] [address] [id number] [address] [place] [address], [place] [address] Jul, [facility] [address] [id number] [address] [place] [address], [place] [id number] Jul, [facility] [address] [id number] [address] [place] [address], [place] [id number] Jul, [facility] [address] [id number] [address] [place] [address], [place] [id number] Jul, [facility] [address] [id number] [address] [place] [address], [place] [id number] Jul, [facility] [address] [id number] [address] [place] [address], [place] [address] 14 Jun, 2013 [facility] [address] [id number] [address] [place] [address], [place] [address] 14 Jun, 2013 [facility] [address] [id number] [address] [place] [address], [place] [address] Jun, [facility] [address] [id number] [address] [place] [address], [place] [address] Jun, [facility] [address] [id number] [address] [place] [address], [place] [address] Jun, [facility] [address] [id number] [address] [place] [address], [place] [address] Jun, [facility] [address] [id number] [address] [place] [address], [place] [address] 31 May, 2013 [facility] [address] [id number] [address] [place] [address], [place] [address] 31 May, 2013 [facility] [address] [id number] [address] [place] [address], [place] [id number] 17 May, 2013 [facility] [address] [id number] [address] [place] [address], [place] [id number] 17 May, 2013 [facility] [address] [id number] [address] [place] [address], [place] [id number] 14 May, 2013 [facility] [address] [id number] [address] [place] [address], [place] [id number] 14 May, 2013 [facility] [address] [id number] [address] [place] [address], [place] [address] 10 May, 2013 [facility] [address] [id number] [address] [place] [address], [place] [id number] 10 May, 2013 [facility] [address] [id number] [address] [place] [id number] 07 May, 2013 [facility] [address] [id number] [address] [place] [id number] 20 Sep, 2012 [facility] [address] [id number] [address] [place] [address], [place] [address] 19 Sep, 2012 [facility] [address] [id number] [address] [place] [address], [place] [id number] 12 Apr, 2012 [facility] [address] [id number] [address] [place] [address], [place] [id number] 24 Sep, 2011 [facility] [address] [id number] [address] [place] [address], [place] [address] 21 Sep, 2011 [facility] [address] [id number] [address] [place] [address], [place] [address] 21 Apr, 2011 [facility] [address] [id number] [address] [place] [address], [place] [id number] 14 Apr, 2011 [facility] [address] [id number] [address] [place] [address], [place] [address] 10 Apr, 2011 [facility] [address] [id number] [address] [place] [address], [place] [id number] 06 Apr, 2011 [facility] [address] [id number] [address] [place] [address], [place] [id number] 04 Apr, 2011 [facility] [address] [id number] [address] [place] [address], [place] [id number] 31 Mar, 2012 [facility] [address] [id number] [address] [place] [address], [place] [id number] 28 Mar, 2012 [facility] [address] [id number] [address] [place] [address], [place] [id number] 27 Mar, 2012 [facility] [address] [id number] [address] [place] [address], [place] [id number] 10 Mar, 2012 [facility] [address] [id number] [address] [place] [address], [place] [id number] 08 Mar, 2012 [facility] [address] [id number] [address] [place] [address], [place] [id number] 03 Mar, 2012 [facility] [address] [id number] [address] [place] [address], [place] [address] Feb, [facility] [address] [id number] [address] [place] [address], [place] [id number] Feb, [facility] [address] [id number] [address] [place] [address], [place] [address] Feb, [facility] [address] [id number] [address] [place] [address], [place] [id number] Jan, [facility] [address] [id number] [address] [place] [address], [place] [id number] Jan, [facility] [address] [id number] [address] [place] [address], [place] [id number] Jan, [facility] [address] [id number] [address] [place] [address], [place] [id number] Jan, [facility] [address] [id number] [address] [place] [address], [place] [address] Jan, [facility] [address] [id number] [address] [place] [address], [place] [id number] Jan, [facility] [address] [id number] [address] [place] [address], [place] [id number] Jan, [facility] [address] [id number] [address] [place] [address], [place] [id number] Jan, [facility] [address] [id number] [address] [place] [address], [place] [address] December, [facility] [address] [id number] [address] [place] [address], [place] [address] December, [facility] [address] [id number] [address] [place] [address], [place] [address] December, [facility] [address] [id number] [address] [place] [address], [place] [address] December, [facility] [address] [id number] [address] [place] [address], [place] [address] December, [facility] [address] [id number] [address] [place] [address], [place] [id number] December, [facility] [address] [id number] [address] [place] [address], [place] [id number] 13 Nov, 2011 [facility] [address] [id number] [address] [place] [address], [place] [id number] 13 Nov, 2011 [facility] [address] [id number] [address] [place] [address], [place] [address] Nov, [facility] [address] [id number] [address] [place] [address], [place] [address] Nov, [facility] [address] [id number] [address] [place] [address], [place] [address] Nov, [facility] [address] [id number] [address] [place] [address], [place] [address] Oct, [facility] [address] [id number] [address] [place] [address], [place] [address] 17 Sep, 2011 [facility] [address] [id number] [address] [place] [address], [place] [address] Aug, [facility] [address] [id number] [address] [place] [address], [place] [address] Aug, [facility] [address] [id number] [address] [place] [address], [place] [id number] Aug, [facility] [address] [id number] [address] [place] [address], [place] [address] Aug, [facility] [address] [id number] [address] [place] [address], [place] [id number] Aug, [facility] [address] [id number] [address] [place] [address], [place] [address] Jul, [facility] [address] [id number] [address] [place] [address], [place] [address] Jul, [facility] [address] [id number] [address] [place] [address], [place] [id number] Jun, [facility] [address] [id number] [address] [place] [address], [place] [address] Jun, [facility] [address] [id number] [address] [place] [address], [place] [address] Jun, [facility] [address] [id number] [address] [place] [address], [place] [address] May, [facility] [address] [id number] [address] [place] [address], [place] [address] May, [facility] [address] [id number] [address] [place] [address], [place] [address] 16 Oct, 2010 [facility] [address] [id number] [address] [place] [address], [place] [id number] Oct, [facility] [address] [id number] [address] [place] [address], [place] [id number] 29 Jul, 2010 [facility] [address] [id number] [address] [place] [address], [place] [address] 08 Jul, 2010 [facility] [address] [id number] [address] [place] [address], [place] [address] Jul, [facility] [address] [id number] [address] [place] [address], [place] [id number] Jul, [facility] [address] [id number] [address] [place] [address], [place] [address] Jul, [facility] [address] [id number] [address] [place] [address], [place] [address] Jun, [facility] [address] [id number] [address] [place] [address], [place] [address] Jun, [facility] [address] [id number] [address] [place] [address], [place] [address] Jun, [facility] [address] [id number] [address] [place] [address], [place] [address] May, [facility] [address] [facility] [id number] [address] [place] [address] 16 Mar, 2010 IMMUNIZATIONS No Known Immunizations [...]
--- OUTSIDE RECORDS SUMMARY | 2020-03-12 09:30 | XMS REPORT ---
Author Author Caren LYLE Organization 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 [address] [facility] [place] [id number] [address] [place] [address] December, [facility] [address] [id number] [address] [place] [address] Aug, Arthritis M19.90 [facility] [address] [facility] [place] [id number] [address] [place] [address] Jul, [facility] [address] [facility] [place] [id number] [address] [place] [address] Jul, [facility] [address] [facility] [place] [id number] [address] [place] [address] Jul, [facility] [address] [id number] [address] [place] [address] Jul, [facility] [address] [facility] [place] [id number] [address] [place] [address] Jul, Diabetes E11.9 ; Diabetic ne uropathy E11.40 ; Arthritis M19.90 and COPD (chronic obstructive pulmonary disease) J44.9 [facility] [address] [facility] [place] [id number] [address] [place] [address] Jul, [facility] [address] [id number] [address] [place] [address], [place] [address] 23 Jun, 2015 [facility] [address] [id number] [address] [place] [address], [place] [address] 23 Jun, 2015 [facility] [address] [id number] [address] [place] [address], [place] [address] 17 Jun, 2014 [facility] [address] [id number] [address] [place] [address], [place] [address] 10 Jun, 2014 [facility] [address] [id number] [address] [place] [address], [place] [address] 15 May, 2015 [facility] [address] [id number] [address] [place] [address], [place] [address] 13 May, 2015 [facility] [address] [id number] [address] [place] [address], [place] [address] 07 May, 2015 [facility] [address] [id number] [address] [place] [address], [place] [address] 22 Sep, 2014 [facility] [address] [id number] [address] [place] [address], [place] [address] 21 Sep, 2014 [facility] [address] [id number] [address] [place] [address], [place] [address] 21 Sep, 2014 [facility] [address] [id number] [address] [place] [address], [place] [address] 15 Sep, 2014 [facility] [address] [id number] [address] [place] [address], [place] [address] 11 Sep, 2014 [facility] [address] [id number] [address] [place] [address], [place] [address] 09 Sep, 2014 [facility] [address] [id number] [address] [place] [address], [place] [address] 08 Sep, 2014 [facility] [address] [id number] [address] [place] [address], [place] [address] 03 Sep, 2014 [facility] [address] [id number] [address] [place] [address] [address] Apr, [facility] [address] [facility] [place] [id number] [address] [place] [address] Mar, [facility] [address] [facility] [place] [facility] [id number] [address] [place] [address] Mar, [facility] [address] [facility] [place] [id number] [address] [place] [address] Mar, [facility] [address] [facility] [place] [id number] [address] [place] [address] Mar, [facility] [address] [facility] [place]] [id number] [address] [place] [address] Mar, [facility] [address] [facility] [place] [facility] [id number] [address] [place] [address] Mar, Diabetes mellitus 250.00 ; C OPD (chronic obstructive pulmonary disease) 496 ; Anxiety 300.[address] [facility] [address] [facility] [place] [facility] [id number] [address] [place] [address] Feb, [facility] [address] [facility] [place] [facility] [id number] [address] [place] [address] Feb, [facility] [address] [facility] [place] [facility] [id number] [address] [place] [address] Feb, [facility] [address] [facility] [place] [facility]] [id number] [address] [place] [address] Feb, [facility] [address] [facility] [place] [facility] [id number] [address] [place] [address] Jan, Seborrheic keratosis 702.[address] [facility] [address] [facility] [place] [id number] [address] [place] [address] Jan, [facility] [address] [facility] [place] [id number] [address] [place] [address] Jan, Routine gynecological examin ation V72.31 ; Breast cancer screening V76.10 ; Hot flashes 627.2 ; Atypical nevi 216.9 and Constipation 564.00 [facility] [address] [id number] [address] [place] [address], [place] [address] Jan, [facility] [address] [id number] [address] [place] [address], [place] [address] December, [facility] [address] [id number] [address] [place] [address], [place] [address] December, [facility] [address] [id number] [address] [place] [address], [place] [address] Nov, [facility] [address] [id number] [address] [place] [address], [place] [address] Nov, [facility] [address] [id number] [address] [place] [address], [place] [address] Oct, [facility] [address] [id number] [address] [place] [address], [place] [address] 23 Oct, 2014 [facility] [address] [id number] [address] [place] [address], [place] [address] 18 Oct, 2014 [facility] [address] [id number] [address] [place] [address], [place] [address] 18 Oct, 2014 [facility] [address] [id number] [address] [place] [address], [place] [address] 17 Oct, 2014 [facility] [address] [id number] [address] [place] [address], [place] [address] 17 Oct, 2014 [facility] [address] [id number] [address] [place] [address] 16 Oct, 2014 [facility] [address] [id number] [address] [place] [address], [place] [address] 16 Oct, 2014 [facility] [address] [id number] [address] [place] [address], [place] [address] 11 Oct, 2014 [facility] [address] [id number] [address] [place] [address], [place] [address] 11 Oct, 2014 [facility] [address] [id number] [address] [place] [address], [place] [address] Sep, 2014 [facility] [address] [id number] [address] [place] [address], [place] [address] Sep, 2014 [facility] [address] [id number] [address] [place] [address], [place] [address] 19 Sep, 2014 [facility] [address] [id number] [address] [place] [address], [place] [address] 18 Sep, 2014 [facility] [address] [id number] [address] [place] [address], [place] [address] Sep, 2014 [facility] [address] [id number] [address] [place] [address], [place] [address] Sep, 2014 [facility] [address] [id number] [address] [place] [address], [place] [address] Sep, 2014 [facility] [address] [id number] [address] [place] [address], [place] [address] Aug, [facility] [address] [id number] [address] [place] [address], [place] [address] Aug, [facility] [address] [id number] [address] [place] [address], [place] [address] Aug, [facility] [address] [id number] [address] [place] [address], [place] [address] Aug, [facility] [address] [id number] [address] [place] [address], [place] [address] Aug, [facility] [address] [id number] [address] [place] [address], [place] [address] Aug, [facility] [address] [id number] [address] [place] [address], [place] [address] Jul, [facility] [address] [id number] [address] [place] [address], [place] [address] Jul, [facility] [address] [id number] [address] [place] [address], [place] [address] Jul, [facility] [address] [id number] [address] [place] [address], [place] [address] Jul, [facility] [address] [id number] [address] [place] [address], [place] [address] Jul, [facility] [address] [id number] [address] [place] [address], [place] [address] Jun, [facility] [address] [id number] [address] [place] [address], [place] [address] Jun, [facility] [address] [id number] [address] [place] [address], [place] [address] Jun, [facility] [address] [id number] [address] [place] [address], [place] [address] Jun, [facility] [address] [id number] [address] [place] [address], [place] [address] Jun, [facility] [address] [id number] [address] [place] [address], [place] [address] Jun, [facility] [address] [id number] [address] [place] [address], [place] [address] May, [facility] [address] [id number] [address] [place] [address], [place] [address] May, [facility] [address] [id number] [address] [place] [address], [place] [address] May, [facility] [address] [id number] [address] [place] [address] May, [facility] [address] [id number] [address] [place] [address], [place] [address] May, [facility] [address] [id number] [address] [place] [address], [place] [address] May, [facility] [address] [id number] [address] [place] [address], [place] [address] May, [facility] [address] [id number] [address] [place] [address], [place] [address] May, [facility] [address] [id number] [address] [place] [address], [place] [address] May, [facility] [address] [id number] [address] [place] [address], [place] [address] Apr, [facility] [address] [id number] [address] [place] [address], [place] [address] Apr, [facility] [address] [id number] [address] [place] [address], [place] [address] Apr, [facility] [address] [id number] [address] [place] [address], [place] [address] Apr, [facility] [address] [id number] [address] [place] [address], [place] [address] Mar, [facility] [address] [id number] [address] [place] [address], [place] [address] Mar, [facility] [address] [id number] [address] [place] [address], [place] [address] Mar, [facility] [address] [id number] [address] [place] [address], [place] [address] Mar, [facility] [address] [id number] [address] [place] [address], [place] [address] Mar, [facility] [address] [id number] [address] [place] [address], [place] [address] Mar, [facility] [address] [id number] [address] [place] [address], [place] [address] Feb, [facility] [address] [id number] [address] [place] [address], [place] [address] Feb, [facility] [address] [id number] [address] [place] [address], [place] [address] Feb, [facility] [address] [id number] [address] [place] [address], [place] [address] Feb, [facility] [address] [id number] [facility] [address] Feb, 2013 [facility] [address] [id number] [facility] [address] Feb, [facility] [address] [id number] [address] [place] [address], [place] [address] Feb, 2013 [facility] [address] [id number] [address] [place] [address], [place] [address] Feb, 2013 [facility] [address] [id number] [address] [place] [address], [place] [address] Feb, 2013 [facility] [address] [id number] [address] [place] [address], [place] [address] Feb, [facility] [address] [id number] [address] [place] [address], [place] [address] Feb, [facility] [address] [id number] [address] [place] [address], [place] [address] Feb, [facility] [address] [id number] [address] [place] [address], [place] [address] Jan, [facility] [address] [id number] [address] [place] [address], [place] [address] Jan, [facility] [address] [id number] [address] [place] [address], [place] [address] Jan, [facility] [address] [id number] [address] [place] [address], [place] [address] Jan, [facility] [address] [id number] [address] [place] [address], [place] [address] Jan, [facility] [address] [id number] [address] [place] [address], [place] [address] Jan, [facility] [address] [id number] [address] [place] [address], [place] [address] Jan, [facility] [address] [id number] [address] [place] [address], [place] [address] Jan, [facility] [address] [id number] [address] [place] [address], [place] [address] Jan, [facility] [address] [id number] [address] [place] [address], [place] [address] Jan, [facility] [address] [id number] [address] [place] [address], [place] [address] Jan, [facility] [address] [id number] [address] [place] [address], [place] [address] Jan, [facility] [address] [id number] [address] [place] [address], [place] [address] Jan, [facility] [address] [id number] [address] [place] [address], [place] [address] Jan, [facility] [address] [id number] [address] [place] [address], [place] [address] Jan, [facility] [address] [id number] [address] [place] [address], [place] [address] Jan, [facility] [address] [id number] [address] [place] [address], [place] [address] Jan, [facility] [address] [id number] [address] [place] [address], [place] [address] December, [facility] [address] [id number] [address] [place] [address], [place] [address] December, [facility] [address] [id number] [address] [place] [address], [place] [address] December, [facility] [address] [id number] [address] [place] [address], [place] [address] December, [facility] [address] [id number] [address] [place] [address], [place] [address] December, [facility] [address] [id number] [address] [place] [address], [place] [address] December, [facility] [address] [id number] [address] [place] [address], [place] [address] Nov, [facility] [address] [id number] [address] [place] [address], [place] [address] Nov, [facility] [address] [id number] [address] [place] [address], [place] [address] Nov, [facility] [address] [id number] [address] [place] [address], [place] [address] Nov, [facility] [address] [id number] [address] [place] [address], [place] [address] Nov, [facility] [address] [id number] [address] [place] [address], [place] [address] Nov, [facility] [address] [id number] [address] [place] [address], [place] [address] Nov, [facility] [address] [id number] [address] [place] [address], [place] [address] Nov, [facility] [address] [id number] [address] [place] [address], [place] [address] Nov, [facility] [address] [id number] [address] [place] [address], [place] [address] Nov, [facility] [address] [id number] [address] [place] [address], [place] [address] Nov, [facility] [address] [id number] [address] [place] [address], [place] [address] Nov, [facility] [address] [id number] [address] [place] [address], [place] [address] Nov, [facility] [address] [id number] [address] [place] [address], [place] [address] Nov, [facility] [address] [id number] [address] [place] [address], [place] [address] Nov, [facility] [address] [id number] [address] [place] [address], [place] [address] Nov, [facility] [address] [id number] [address] [place] [address], [place] [address] Oct, [facility] [address] [id number] [address] [place] [address], [place] [address] Oct, [facility] [address] [id number] [address] [place] [address], [place] [address] Oct, [facility] [address] [id number] [address] [place] [address], [place] [address] Oct, [facility] [address] [id number] [address] [place] [address], [place] [address] Oct, [facility] [address] [id number] [address] [place] [address], [place] [address] Oct, [facility] [address] [id number] [address] [place] [address], [place] [address] Oct, [facility] [address] [id number] [address] [place] [address], [place] [address] Oct, [facility] [address] [id number] [address] [place] [address], [place] [address] Sep, [facility] [address] [id number] [address] [place] [address], [place] [address] Sep, [facility] [address] [id number] [address] [place] [address], [place] [address] Sep, [facility] [address] [id number] [address] [place] [address], [place] [address] Sep, [facility] [address] [id number] [address] [place] [address], [place] [address] Sep, [facility] [address] [id number] [address] [place] [address], [place] [address] Sep, [facility] [address] [id number] [address] [place] [address], [place] [address] Aug, [facility] [address] [id number] [address] [place] [address], [place] [address] Aug, [facility] [address] [id number] [address] [place] [address], [place] [address] Aug, [facility] [address] [id number] [address] [place] [address], [place] [address] Aug, [facility] [address] [id number] [address] [place] [address], [place] [address] Aug, [facility] [address] [id number] [address] [place] [address], [place] [address] Aug, [facility] [address] [id number] [address] [place] [address], [place] [address] Aug, [facility] [address] [id number] [address] [place] [address], [place] [address] Aug, [facility] [address] [id number] [address] [place] [address], [place] [address] Jul, [facility] [address] [id number] [address] [place] [address], [place] [address] Jul, [facility] [address] [id number] [address] [place] [address], [place] [address] Jul, [facility] [address] [id number] [address] [place] [address], [place] [address] Jul, [facility] [address] [id number] [address] [place] [address], [place] [address] Jul, [facility] [address] [id number] [address] [place] [address], [place] [address] Jul, [facility] [address] [id number] [address] [place] [address], [place] [address] Jul, [facility] [address] [id number] [address] [place] [address], [place] [address] Jul, [facility] [address] [id number] [address] [place] [address], [place] [address] Jul, [facility] [address] [id number] [address] [place] [address], [place] [address] 14 Jun, 2013 [facility] [address] [id number] [address] [place] [address], [place] [address] 14 Jun, 2013 [facility] [address] [id number] [address] [place] [address], [place] [address] Jun, [facility] [address] [id number] [address] [place] [address], [place] [address] Jun, [facility] [address] [id number] [address] [place] [address], [place] [address] Jun, [facility] [address] [id number] [address] [place] [address], [place] [address] Jun, [facility] [address] [id number] [address] [place] [address], [place] [address] 31 May, 2013 [facility] [address] [id number] [address] [place] [address], [place] [address] 31 May, 2013 [facility] [address] [id number] [address] [place] [address], [place] [address] 17 May, 2013 [facility] [address] [id number] [address] [place] [address], [place] [address] 17 May, 2013 [facility] [address] [id number] [address] [place] [address], [place] [address] 14 May, 2013 [facility] [address] [id number] [address] [place] [address], [place] [address] 14 May, 2013 [facility] [address] [id number] [address] [place] [address], [place] [address] 10 May, 2013 [facility] [address] [id number] [address] [place] [address], [place] [address] 10 May, 2013 [facility] [address] [id number] [address] [place] [address] 07 May, 2013 [facility] [address] [id number] [address] [place] [address] 20 Sep, 2012 [facility] [address] [id number] [address] [place] [address], [place] [address] 19 Sep, 2012 [facility] [address] [id number] [address] [place] [address], [place] [address] 12 Apr, 2012 [facility] [address] [address] [id number] [address] [place] [address], [place] [address] 24 Sep, 2011 [facility] [address] [id number] [address] [place] [address], [place] [address] 21 Sep, 2011 [facility] [address] [id number] [address] [place] [address], [place] [address] 21 Apr, 2011 [facility] [address] [id number] [address] [place] [address], [place] [address] 14 Apr, 2011 [facility] [address] [id number] [address] [place] [address], [place] [address] 10 Apr, 2011 [facility] [address] [id number] [address] [place] [address], [place] [address] 06 Apr, 2011 [facility] [address] [id number] [address] [place] [address], [place] [address] 04 Apr, 2011 [facility] [address] [id number] [address] [place] [address], [place] [address] 31 Mar, 2012 [facility] [address] [id number] [address] [place] [address], [place] [address] 28 Mar, 2012 [facility] [address] [id number] [address] [place] [address], [place] [address] 27 Mar, 2012 [facility] [address] [id number] [address] [place] [address], [place] [address] 10 Mar, 2012 [facility] [address] [id number] [address] [place] [address], [place] [address] 08 Mar, 2012 [facility] [address] [id number] [address] [place] [address], [place] [address] 03 Mar, 2012 [facility] [address] [id number] [address] [place] [address], [place] [address] Feb, [facility] [address] [id number] [address] [place] [address], [place] [address] Feb, [facility] [address] [id number] [address] [place] [address], [place] [address] Feb, [facility] [address] [id number] [address] [place] [address], [place] [address] Jan, [facility] [address] [id number] [address] [place] [address], [place] [address] Jan, [facility] [address] [id number] [address] [place] [address], [place] [address] Jan, [facility] [address] [id number] [address] [place] [address], [place] [address] Jan, [facility] [address] [id number] [address] [place] [address], [place] [address] Jan, [facility] [address] [id number] [address] [place] [address], [place] [address] Jan, [facility] [address] [id number] [address] [place] [address], [place] [address] Jan, [facility] [address] [id number] [address] [place] [address], [place] [address] Jan, [facility] [address] [id number] [address] [place] [address], [place] [address] December, [facility] [address] [id number] [address] [place] [address], [place] [address] December, [facility] [address] [id number] [address] [place] [address], [place] [address] December, [facility] [address] [id number] [address] [place] [address], [place] [address] December, [facility] [address] [id number] [address] [place] [address], [place] [address] December, [facility] [address] [id number] [address] [place] [address], [place] [address] December, [facility] [address] [id number] [address] [place] [address], [place] [address] 13 Nov, 2011 [facility] [address] [id number] [address] [place] [address], [place] [address] 13 Nov, 2011 [facility] [address] [id number] [address] [place] [address], [place] [address] Nov, [facility] [address] [id number] [address] [place] [address], [place] [address] Nov, [facility] [address] [id number] [address] [place] [address], [place] [address] Nov, [facility] [address] [id number] [address] [place] [address], [place] [address] Oct, [facility] [address] [id number] [address] [place] [address], [place] [address] 17 Sep, 2011 [facility] [address] [id number] [address] [place] [address], [place] [address] Aug, [facility] [address] [id number] [address] [place] [address], [place] [address] Aug, [facility] [address] [id number] [address] [place] [address], [place] [address] Aug, [facility] [address] [id number] [address] [place] [address], [place] [address] Aug, [facility] [address] [id number] [address] [place] [address], [place] [address] Aug, [facility] [address] [id number] [address] [place] [address], [place] [address] Jul, [facility] [address] [id number] [address] [place] [address], [place] [address] Jul, [facility] [address] [id number] [address] [place] [address], [place] [address] Jun, [facility] [address] [id number] [address] [place] [address], [place] [address] Jun, [facility] [address] [id number] [address] [place] [address], [place] [address] Jun, [facility] [address] [id number] [address] [place] [address], [place] [address] May, [facility] [address] [id number] [address] [place] [address], [place] [address] May, [facility] [address] [id number] [address] [place] [address], [place] [address] 16 Oct, 2010 [facility] [address] [id number] [address] [place] [address], [place] [address] Oct, [facility] [address] [id number] [address] [place] [address], [place] [address] 29 Jul, 2010 [facility] [address] [id number] [address] [place] [address], [place] [address] 08 Jul, 2010 [facility] [address] [id number] [address] [place] [address], [place] [address] Jul, [facility] [address] [id number] [address] [place] [address], [place] [address] Jul, [facility] [address] [id number] [address] [place] [address], [place] [address] Jul, [facility] [address] [id number] [address] [place] [address], [place] [address] Jun, [facility] [address] [id number] [address] [place] [address], [place] [address] Jun, [facility] [address] [id number] [address] [place] [address], [place] [address] Jun, [facility] [address] [id number] [address] [place] [address], [place] [address] May, [facility] [address] [facility] [place] [id number] [address] [place] [address] 16 Mar, 2010 IMMUNIZATIONS No Known Immunizations [...]
--- OUTSIDE RECORDS SUMMARY | 2020-03-12 09:30 | XMS REPORT ---
Author Author Caren LYLE Organization [facility] Address [address] [place] [address] Care Team Providers Care Jig Boring Machine Set Up Operator Name Role Phone LAURIE LYLE Unavailable PROBLEMS Type Condition ICD9-CM Code [id number] Code Onset Dates Condition S tatus SNOMED Code Problem COPD (chronic obstructive pulmonary disease) J44.9 Active 32320270 Problem Diabetes E11.9 Active 90215485 Problem Diabetic neuropathy E11.40 Active 353942371 Problem Arthritis M19.90 Active 2406537 ALLERGIES No Information ENCOUNTERS Encounter Location Date Diagnosis [facility] [address] [facility] [id number] [address] [place] [address] December, [facility] [address] [id number] [address] [place] [address] Aug, Arthritis M19.90 [facility] [address] [facility] [id number] [address] [place] [address] Jul, [facility] [address] [facility] [id number] [address] [place] [address] Jul, [facility] [address] [facility] [id number] [address] [place] [address] Jul, [facility] [address] [id number] [address] [place] [address] Jul, [facility] [address] [facility] [id number] [address] [place] [address] Jul, Diabetes E11.9 ; Diabetic ne uropathy E11.40 ; Arthritis M19.90 and COPD (chronic obstructive pulmonary disease) J44.9 [facility] [address] [facility] [id number] [address] [place] [address] Jul, [facility] [address] [id number] [address] [place] [address], [place] [address] 23 Jun, 2015 [facility] [address] [id number] [address] [place] [address], [place] [address] 23 Jun, 2015 [facility] [address] [id number] [address] [place] [address], [place] [address] 17 Jun, 2014 [facility] [address] [id number] [address] [place] [address], [place] [address] 10 Jun, 2014 [facility] [address] [id number] [address] [place] [address], [place] [address] 15 May, 2015 [facility] [address] [id number] [address] [place] [address], [place] [address] 13 May, 2015 [facility] [address] [id number] [address] [place] [address], [place] [address] 07 May, 2015 [facility] [address] [id number] [address] [place] [address], [place] [address] 22 Sep, 2014 [facility] [address] [id number] [address] [place] [address], [place] [address] 21 Sep, 2014 [facility] [address] [id number] [address] [place] [address], [place] [address] 21 Sep, 2014 [facility] [address] [id number] [address] [place] [address], [place] [address] 15 Sep, 2014 [facility] [address] [id number] [address] [place] [address], [place] [address] 11 Sep, 2014 [facility] [address] [id number] [address] [place] [address], [place] [address] 09 Sep, 2014 [facility] [address] [id number] [address] [place] [address], [place] [address] 08 Sep, 2014 [facility] [address] [id number] [address] [place] [address], [place] [address] 03 Sep, 2014 [facility] [address] [id number] [address] [place] [address] [address] Apr, [facility] [address] [facility] [id number] [address] [place] [address] Mar, [facility] [address] [facility] [id number] [address] [place] [address] Mar, [facility] [address] [facility] [id number] [address] [place] [address] Mar, [facility] [address] [facility] [id number] [address] [place] [address] Mar, [facility] [address] [facility] [id number] [address] [place] [address] Mar, [facility] [address] [facility] [id number] [address] [place] [address] Mar, Diabetes mellitus 250.00 ; C OPD (chronic obstructive pulmonary disease) 496 ; Anxiety 300.00 and Arthritis 716.90 [facility] [address] [facility] [id number] [address] [place] [address] Feb, [facility] [address] [facility] [id number] [address] [place] [address] Feb, [facility] [address] [facility] [id number] [address] [place] [address] Feb, [facility] [address] [facility] [id number] [address] [place] [address] Feb, [facility] [address] [facility] [id number] [address] [place] [address] Jan, Seborrheic keratosis 702.19 and Nevus 216.9 [facility] [address] [facility] [id number] [address] [place] [address] Jan, [facility] [address] [facility] [id number] [address] [place] [address] Jan, Routine gynecological examin ation V72.31 ; Breast cancer screening V76.10 ; Hot flashes 627.2 ; Atypical nevi 216.9 and Constipation 564.00 [facility] [address] [id number] [address] [place] [address], [place] [address] Jan, [facility] [address] [id number] [address] [place] [address], [place] [address] December, [facility] [address] [id number] [address] [place] [address], [place] [address] December, [facility] [address] [id number] [address] [place] [address], [place] [address] Nov, [facility] [address] [id number] [address] [place] [address], [place] [address] Nov, [facility] [address] [id number] [address] [place] [address], [place] [address] Oct, [facility] [address] [id number] [address] [place] [address], [place] [address] 23 Oct, 2014 [facility] [address] [id number] [address] [place] [address], [place] [address] 18 Oct, 2014 [facility] [address] [id number] [address] [place] [address], [place] [address] 18 Oct, 2014 [facility] [address] [id number] [address] [place] [address], [place] [address] 17 Oct, 2014 [facility] [address] [id number] [address] [place] [address], [place] [address] 17 Oct, 2014 [facility] [address] [id number] [address] [place] [address] 16 Oct, 2014 [facility] [address] [id number] [address] [place] [address], [place] [address] 16 Oct, 2014 [facility] [address] [id number] [address] [place] [address], [place] [address] 11 Oct, 2014 [facility] [address] [id number] [address] [place] [address], [place] [address] 11 Oct, 2014 [facility] [address] [id number] [address] [place] [address], [place] [address] Sep, 2014 [facility] [address] [id number] [address] [place] [address], [place] [address] Sep, 2014 [facility] [address] [id number] [address] [place] [address], [place] [address] 19 Sep, 2014 [facility] [address] [id number] [address] [place] [address], [place] [address] 18 Sep, 2014 [facility] [address] [id number] [address] [place] [address], [place] [address] Sep, 2014 [facility] [address] [id number] [address] [place] [address], [place] [address] Sep, 2014 [facility] [address] [id number] [address] [place] [address], [place] [address] Sep, 2014 [facility] [address] [id number] [address] [place] [address], [place] [address] Aug, [facility] [address] [id number] [address] [place] [address], [place] [address] Aug, [facility] [address] [id number] [address] [place] [address], [place] [address] Aug, [facility] [address] [id number] [address] [place] [address], [place] [address] Aug, [facility] [address] [id number] [address] [place] [address], [place] [address] Aug, [facility] [address] [id number] [address] [place] [address], [place] [address] Aug, [facility] [address] [id number] [address] [place] [address], [place] [address] Jul, [facility] [address] [id number] [address] [place] [address], [place] [address] Jul, [facility] [address] [id number] [address] [place] [address], [place] [address] Jul, [facility] [address] [id number] [address] [place] [address], [place] [address] Jul, [facility] [address] [id number] [address] [place] [address], [place] [address] Jul, [facility] [address] [id number] [address] [place] [address], [place] [address] Jun, [facility] [address] [id number] [address] [place] [address], [place] [address] Jun, [facility] [address] [id number] [address] [place] [address], [place] [address] Jun, [facility] [address] [id number] [address] [place] [address], [place] [address] Jun, [facility] [address] [id number] [address] [place] [address], [place] [address] Jun, [facility] [address] [id number] [address] [place] [address], [place] [address] Jun, [facility] [address] [id number] [address] [place] [address], [place] [address] May, [facility] [address] [id number] [address] [place] [address], [place] [address] May, [facility] [address] [id number] [address] [place] [address], [place] [address] May, [facility] [address] [id number] [address] [place] [address] May, [facility] [address] [id number] [address] [place] [address], [place] [address] May, [facility] [address] [id number] [address] [place] [address], [place] [address] May, [facility] [address] [id number] [address] [place] [address], [place] [address] May, [facility] [address] [id number] [address] [place] [address], [place] [address] May, [facility] [address] [id number] [address] [place] [address], [place] [address] May, [facility] [address] [id number] [address] [place] [address], [place] [address] Apr, [facility] [address] [id number] [address] [place] [address], [place] [address] Apr, [facility] [address] [id number] [address] [place] [address], [place] [address] Apr, [facility] [address] [id number] [address] [place] [address], [place] [address] Apr, [facility] [address] [id number] [address] [place] [address], [place] [address] Mar, [facility] [address] [id number] [address] [place] [address], [place] [address] Mar, [facility] [address] [id number] [address] [place] [address], [place] [address] Mar, [facility] [address] [id number] [address] [place] [address], [place] [address] Mar, [facility] [address] [id number] [address] [place] [address], [place] [address] Mar, [facility] [address] [id number] [address] [place] [address], [place] [address] Mar, [facility] [address] [id number] [address] [place] [address], [place] [address] Feb, [facility] [address] [id number] [address] [place] [address], [place] [address] Feb, [facility] [address] [id number] [address] [place] [address], [place] [address] Feb, [facility] [address] [id number] [address] [place] [address], [place] [address] Feb, [facility] [address] [id number] [facility] [place] [address] Feb, 2013 [facility] [address] [id number] [facility] [place] [address] Feb, [facility] [address] [id number] [address] [place] [address], [place] [address] Feb, 2013 [facility] [address] [id number] [address] [place] [address], [place] [address] Feb, 2013 [facility] [address] [id number] [address] [place] [address], [place] [address] Feb, 2013 [facility] [address] [id number] [address] [place] [address], [place] [address] Feb, [facility] [address] [id number] [address] [place] [address], [place] [address] Feb, [facility] [address] [id number] [address] [place] [address], [place] [address] Feb, [facility] [address] [id number] [address] [place] [address], [place] [address] Jan, [facility] [address] [id number] [address] [place] [address], [place] [address] Jan, [facility] [address] [id number] [address] [place] [address], [place] [address] Jan, [facility] [address] [id number] [address] [place] [address], [place] [address] Jan, [facility] [address] [id number] [address] [place] [address], [place] [address] Jan, [facility] [address] [id number] [address] [place] [address], [place] [address] Jan, [facility] [address] [id number] [address] [place] [address], [place] [address] Jan, [facility] [address] [id number] [address] [place] [address], [place] [address] Jan, [facility] [address] [id number] [address] [place] [address], [place] [address] Jan, [facility] [address] [id number] [address] [place] [address], [place] [address] Jan, [facility] [address] [id number] [address] [place] [address], [place] [address] Jan, [facility] [address] [id number] [address] [place] [address], [place] [address] Jan, [facility] [address] [id number] [address] [place] [address], [place] [address] Jan, [facility] [address] [id number] [address] [place] [address], [place] [address] Jan, [facility] [address] [id number] [address] [place] [address], [place] [address] Jan, [facility] [address] [id number] [address] [place] [address], [place] [address] Jan, [facility] [address] [id number] [address] [place] [address], [place] [address] Jan, [facility] [address] [id number] [address] [place] [address], [place] [address] December, [facility] [address] [id number] [address] [place] [address], [place] [address] December, [facility] [address] [id number] [address] [place] [address], [place] [address] December, [facility] [address] [id number] [address] [place] [address], [place] [address] December, [facility] [address] [id number] [address] [place] [address], [place] [address] December, [facility] [address] [id number] [address] [place] [address], [place] [address] December, [facility] [address] [id number] [address] [place] [address], [place] [address] Nov, [facility] [address] [id number] [address] [place] [address], [place] [address] Nov, [facility] [address] [id number] [address] [place] [address], [place] [address] Nov, [facility] [address] [id number] [address] [place] [address], [place] [address] Nov, [facility] [address] [id number] [address] [place] [address], [place] [address] Nov, [facility] [address] [id number] [address] [place] [address], [place] [address] Nov, [facility] [address] [id number] [address] [place] [address], [place] [address] Nov, [facility] [address] [id number] [address] [place] [address], [place] [address] Nov, [facility] [address] [id number] [address] [place] [address], [place] [address] Nov, [facility] [address] [id number] [address] [place] [address], [place] [address] Nov, [facility] [address] [id number] [address] [place] [address], [place] [address] Nov, [facility] [address] [id number] [address] [place] [address], [place] [address] Nov, [facility] [address] [id number] [address] [place] [address], [place] [address] Nov, [facility] [address] [id number] [address] [place] [address], [place] [address] Nov, [facility] [address] [id number] [address] [place] [address], [place] [address] Nov, [facility] [address] [id number] [address] [place] [address], [place] [address] Nov, [facility] [address] [id number] [address] [place] [address], [place] [address] Oct, [facility] [address] [id number] [address] [place] [address], [place] [address] Oct, [facility] [address] [id number] [address] [place] [address], [place] [address] Oct, [facility] [address] [id number] [address] [place] [address], [place] [address] Oct, [facility] [address] [id number] [address] [place] [address], [place] [address] Oct, [facility] [address] [id number] [address] [place] [address], [place] [address] Oct, [facility] [address] [id number] [address] [place] [address], [place] [address] Oct, [facility] [address] [id number] [address] [place] [address], [place] [address] Oct, [facility] [address] [id number] [address] [place] [address], [place] [address] Sep, [facility] [address] [id number] [address] [place] [address], [place] [address] Sep, [facility] [address] [id number] [address] [place] [address], [place] [address] Sep, [facility] [address] [id number] [address] [place] [address], [place] [address] Sep, [facility] [address] [id number] [address] [place] [address], [place] [address] Sep, [facility] [address] [id number] [address] [place] [address], [place] [address] Sep, [facility] [address] [id number] [address] [place] [address], [place] [address] Aug, [facility] [address] [id number] [address] [place] [address], [place] [address] Aug, [facility] [address] [id number] [address] [place] [address], [place] [address] Aug, [facility] [address] [id number] [address] [place] [address], [place] [address] Aug, [facility] [address] [id number] [address] [place] [address], [place] [address] Aug, [facility] [address] [id number] [address] [place] [address], [place] [address] Aug, [facility] [address] [id number] [address] [place] [address], [place] [address] Aug, [facility] [address] [id number] [address] [place] [address], [place] [address] Aug, [facility] [address] [id number] [address] [place] [address], [place] [address] Jul, [facility] [address] [id number] [address] [place] [address], [place] [address] Jul, [facility] [address] [id number] [address] [place] [address], [place] [address] Jul, [facility] [address] [id number] [address] [place] [address], [place] [address] Jul, [facility] [address] [id number] [address] [place] [address], [place] [address] Jul, [facility] [address] [id number] [address] [place] [address], [place] [address] Jul, [facility] [address] [id number] [address] [place] [address], [place] [address] Jul, [facility] [address] [id number] [address] [place] [address], [place] [address] Jul, [facility] [address] [id number] [address] [place] [address], [place] [address] Jul, [facility] [address] [id number] [address] [place] [address], [place] [address] 14 Jun, 2013 [facility] [address] [id number] [address] [place] [address], [place] [address] 14 Jun, 2013 [facility] [address] [id number] [address] [place] [address], [place] [address] Jun, [facility] [address] [id number] [address] [place] [address], [place] [address] Jun, [facility] [address] [id number] [address] [place] [address], [place] [address] Jun, [facility] [address] [id number] [address] [place] [address], [place] [address] Jun, [facility] [address] [id number] [address] [place] [address], [place] [address] 31 May, 2013 [facility] [address] [id number] [address] [place] [address], [place] [address] 31 May, 2013 [facility] [address] [id number] [address] [place] [address], [place] [address] 17 May, 2013 [facility] [address] [id number] [address] [place] [address], [place] [address] 17 May, 2013 [facility] [address] [id number] [address] [place] [address], [place] [address] 14 May, 2013 [facility] [address] [id number] [address] [place] [address], [place] [address] 14 May, 2013 [facility] [address] [id number] [address] [place] [address], [place] [address] 10 May, 2013 [facility] [address] [id number] [address] [place] [address], [place] [address] 10 May, 2013 [facility] [address] [id number] [address] [place] [address] 07 May, 2013 [facility] [address] [id number] [address] [place] [address] 20 Sep, 2012 [facility] [address] [id number] [address] [place] [address], [place] [address] 19 Sep, 2012 [facility] [address] [id number] [address] [place] [address], [place] [address] 12 Apr, 2012 [facility] [address] [id number] [address] [place] [address], [place] [address] 24 Sep, 2011 [facility] [address] [id number] [address] [place] [address], [place] [address] 21 Sep, 2011 [facility] [address] [id number] [address] [place] [address], [place] [address] 21 Apr, 2011 [facility] [address] [id number] [address] [place] [address], [place] [address] 14 Apr, 2011 [facility] [address] [id number] [address] [place] [address], [place] [address] 10 Apr, 2011 [facility] [address] [id number] [address] [place] [address], [place] [address] 06 Apr, 2011 [facility] [facility] [address] [id number] [address] [place] [address], [place] [address] 04 Apr, 2011 [facility] [address] [id number] [address] [place] [address], [place] [address] 31 Mar, 2012 [facility] [address] [id number] [address] [place] [address], [place] [address] 28 Mar, 2012 [facility] [address] [id number] [address] [place] [address], [place] [address] 27 Mar, 2012 [facility] [address] [id number] [address] [place] [address], [place] [address] 10 Mar, 2012 [facility] [address] [id number] [address] [place] [address], [place] [address] 08 Mar, 2012 [facility] [address] [id number] [address] [place] [address], [place] [address] 03 Mar, 2012 [facility] [address] [id number] [address] [place] [address], [place] [address] Feb, [facility] [address] [id number] [address] [place] [address], [place] [address] Feb, [facility] [address] [id number] [address] [place] [address], [place] [address] Feb, [facility] [address] [id number] [address] [place] [address], [place] [address] Jan, [facility] [address] [id number] [address] [place] [address], [place] [address] Jan, [facility] [address] [id number] [address] [place] [address], [place] [address] Jan, [facility] [address] [id number] [address] [place] [address], [place] [address] Jan, [facility] [address] [id number] [address] [place] [address], [place] [address] Jan, [facility] [address] [id number] [address] [place] [address], [place] [address] Jan, [facility] [address] [id number] [address] [place] [address], [place] [address] Jan, [facility] [address] [id number] [address] [place] [address], [place] [address] Jan, [facility] [address] [id number] [address] [place] [address], [place] [address] December, [facility] [address] [id number] [address] [place] [address], [place] [address] December, [facility] [address] [id number] [address] [place] [address], [place] [address] December, [facility] [address] [id number] [address] [place] [address], [place] [address] December, [facility] [address] [id number] [address] [place] [address], [place] [address] December, [facility] [address] [id number] [address] [place] [address], [place] [address] December, [facility] [address] [id number] [address] [place] [address], [place] [address] 13 Nov, 2011 [facility] [address] [id number] [address] [place] [address], [place] [address] 13 Nov, 2011 [facility] [address] [id number] [address] [place] [address], [place] [address] Nov, [facility] [address] [id number] [address] [place] [address], [place] [address] Nov, [facility] [address] [id number] [address] [place] [address], [place] [address] Nov, [facility] [address] [id number] [address] [place] [address], [place] [address] Oct, [facility] [address] [id number] [address] [place] [address], [place] [address] 17 Sep, 2011 [facility] [address] [id number] [address] [place] [address], [place] [address] Aug, [facility] [address] [id number] [address] [place] [address], [place] [address] Aug, [facility] [address] [id number] [address] [place] [address], [place] [address] Aug, [facility] [address] [id number] [address] [place] [address], [place] [address] Aug, [facility] [address] [id number] [address] [place] [address], [place] [address] Aug, [facility] [address] [id number] [address] [place] [address], [place] [address] Jul, [facility] [address] [id number] [address] [place] [address], [place] [address] Jul, [facility] [address] [id number] [address] [place] [address], [place] [address] Jun, [facility] [address] [id number] [address] [place] [address], [place] [address] Jun, [facility] [address] [id number] [address] [place] [address], [place] [address] Jun, [facility] [address] [id number] [address] [place] [address], [place] [address] May, [facility] [address] [id number] [address] [place] [address], [place] [address] May, [facility] [address] [id number] [address] [place] [address], [place] [address] 16 Oct, 2010 [facility] [address] [id number] [address] [place] [address], [place] [address] Oct, [facility] [address] [id number] [address] [place] [address], [place] [address] 29 Jul, 2010 [facility] [address] [id number] [address] [place] [address], [place] [address] 08 Jul, 2010 [facility] [address] [id number] [address] [place] [address], [place] [address] Jul, [facility] [address] [id number] [address] [place] [address], [place] [address] Jul, [facility] [address] [id number] [address] [place] [address], [place] [address] Jul, [facility] [address] [id number] [address] [place] [address], [place] [address] Jun, [facility] [address] [id number] [address] [place] [address], [place] [address] Jun, [facility] [address] [id number] [address] [place] [address], [place] [address] Jun, [facility] [address] [id number] [address] [place] [address], [place] [address] May, [facility] [address] [facility] [id number] [address] [place] [address] 16 Mar, 2010 IMMUNIZATIONS No Known Immunizations [...]
--- OUTSIDE RECORDS SUMMARY | 2020-03-12 09:31 | XMS REPORT ---
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 Name Role Phone LAURIE LYLE Unavailable PROBLEMS Type Condition ICD9-CM Code SIK26-MA Code Onset Dates Condition S tatus SNOMED Code Problem COPD (chronic obstructive pulmonary disease) J44.9 Active 31211283 Problem Diabetes E11.9 Active 61065454 Problem Diabetic neuropathy E11.40 Active 977939348 Problem Arthritis M19.90 Active 7803535 ALLERGIES No Information ENCOUNTERS Encounter Location Date Diagnosis [facility] [address] [facility] [id number] [address] [place] [id number] December, [facility] [address] [id number] [address] [place] [address] Aug, Arthritis M19.90 [facility] [address] [facility] [id number] [address] [place] [address] Jul, [facility] [address] [facility] [id number] [address] [place] [id number] Jul, [facility] [address] [facility] [id number] [address] [place] [address] Jul, [facility] [address] [id number] [address] [place] [address] Jul, [facility] [address] [facility] [id number] [address] [place] [address] Jul, Diabetes E11.9 ; Diabetic ne uropathy E11.40 ; Arthritis M19.90 and COPD (chronic obstructive pulmonary disease) J44.9 [facility] [address] [facility] [id number] [address] [place] [address] Jul, [facility] [address] [id number] [address] [place] [address], [place] [address] 23 Jun, 2015 [facility] [address] [id number] [address] [place] [address], [place] [address] 23 Jun, 2015 [facility] [address] [id number] [address] [place] [address], [place] [address] 17 Jun, 2014 [facility] [address] [id number] [address] [place] [address], [place] [address] 10 Jun, 2014 [facility] [address] [id number] [address] [place] [address], [place] [address] 15 May, 2015 [facility] [address] [id number] [address] [place] [address], [place] [address] 13 May, 2015 [facility] [address] [id number] [address] [place] [address], [place] [address] 07 May, 2015 [facility] [address] [id number] [address] [place] [address], [place] [address] 22 Sep, 2014 [facility] [address] [id number] [address] [place] [address], [place] [address] 21 Sep, 2014 [facility] [address] [id number] [address] [place] [address], [place] [address] 21 Sep, 2014 [facility] [address] [id number] [address] [place] [address], [place] [address] 15 Sep, 2014 [facility] [address] [id number] [address] [place] [address], [place] [address] 11 Sep, 2014 [facility] [address] [id number] [address] [place] [address], [place] [address] 09 Sep, 2014 [facility] [address] [id number] [address] [place] [address], [place] [address] 08 Sep, 2014 [facility] [address] [id number] [address] [place] [address], [place] [address] 03 Sep, 2014 [facility] [address] [id number] [address] [place] [address] [address] Apr, [facility] [address] [facility] [id number] [address] [place] [address] Mar, [facility] [address] [facility] [id number] [address] [place] [address] Mar, [facility] [address] [facility] [id number] [address] [place] [address] Mar, [facility] [address] [facility] [id number] [address] [place] [address] Mar, [facility] [address] [facility] [id number] [address] [place] [address] Mar, [facility] [address] [facility] [id number] [address] [place] [address] Mar, Diabetes mellitus 250.00 ; C OPD (chronic obstructive pulmonary disease) 496 ; Anxiety 300.00 and Arthritis 716.90 [facility] [address] [facility] [id number] [address] [place] [address] Feb, [facility] [address] [facility] [id number] [address] [place] [address] Feb, [facility] [address] [facility] [id number] [address] [place] [address] Feb, [facility] [address] [facility] [id number] [address] [place] [address] Feb, [facility] [address] [facility] [id number] [address] [place] [address] Jan, Seborrheic keratosis 702.19 and Nevus 216.9 [facility] [address] [facility] [id number] [address] [place] [address] Jan, [facility] [address] [facility] [id number] [address] [place] [address] Jan, Routine gynecological examin ation V72.31 ; Breast cancer screening V76.10 ; Hot flashes 627.2 ; Atypical nevi 216.9 and Constipation 564.00 [facility] [address] [id number] [address] [place] [address], [place] [address] Jan, [facility] [address] [id number] [address] [place] [address], [place] [address] December, [facility] [address] [id number] [address] [place] [address], [place] [address] December, [facility] [address] [id number] [address] [place] [address], [place] [address] Nov, [facility] [address] [id number] [address] [place] [address], [place] [address] Nov, [facility] [address] [id number] [address] [place] [address], [place] [address] Oct, [facility] [address] [id number] [address] [place] [address], [place] [address] 23 Oct, 2014 [facility] [address] [id number] [address] [place] [address], [place] [address] 18 Oct, 2014 [facility] [address] [id number] [address] [place] [address], [place] [address] 18 Oct, 2014 [facility] [address] [id number] [address] [place] [address], [place] [address] 17 Oct, 2014 [facility] [address] [id number] [address] [place] [address], [place] [address] 17 Oct, 2014 [facility] [address] [id number] [address] [place] [address] 16 Oct, 2014 [facility] [address] [id number] [address] [place] [address], [place] [address] 16 Oct, 2014 [facility] [address] [id number] [address] [place] [address], [place] [address] 11 Oct, 2014 [facility] [address] [id number] [address] [place] [address], [place] [address] 11 Oct, 2014 [facility] [address] [id number] [address] [place] [address], [place] [address] Sep, 2014 [facility] [address] [id number] [address] [place] [address], [place] [address] Sep, 2014 [facility] [address] [id number] [address] [place] [address], [place] [address] 19 Sep, 2014 [facility] [address] [id number] [address] [place] [address], [place] [address] 18 Sep, 2014 [facility] [address] [id number] [address] [place] [address], [place] [address] Sep, 2014 [facility] [address] [id number] [address] [place] [address], [place] [address] Sep, 2014 [facility] [address] [id number] [address] [place] [address], [place] [address] Sep, 2014 [facility] [address] [id number] [address] [place] [address], [place] [address] Aug, [facility] [address] [id number] [address] [place] [address], [place] [address] Aug, [facility] [address] [id number] [address] [place] [address], [place] [address] Aug, [facility] [address] [id number] [address] [place] [address], [place] [address] Aug, [facility] [address] [id number] [address] [place] [address], [place] [address] Aug, [facility] [address] [id number] [address] [place] [address], [place] [address] Aug, [facility] [address] [id number] [address] [place] [address], [place] [address] Jul, [facility] [address] [id number] [address] [place] [address], [place] [address] Jul, [facility] [address] [id number] [address] [place] [address], [place] [address] Jul, [facility] [address] [id number] [address] [place] [address], [place] [address] Jul, [facility] [address] [id number] [address] [place] [address], [place] [address] Jul, [facility] [address] [id number] [address] [place] [address], [place] [address] Jun, [facility] [address] [id number] [address] [place] [address], [place] [address] Jun, [facility] [address] [id number] [address] [place] [address], [place] [address] Jun, [facility] [address] [id number] [address] [place] [address], [place] [address] Jun, [facility] [address] [id number] [address] [place] [address], [place] [address] Jun, [facility] [address] [id number] [address] [place] [address], [place] [address] Jun, [facility] [address] [id number] [address] [place] [address], [place] [address] May, [facility] [address] [id number] [address] [place] [address], [place] [address] May, [facility] [address] [id number] [address] [place] [address], [place] [address] May, [facility] [address] [id number] [address] [place] [address] May, [facility] [address] [id number] [address] [place] [address], [place] [address] May, [facility] [address] [id number] [address] [place] [address], [place] [address] May, [facility] [address] [id number] [address] [place] [address], [place] [address] May, [facility] [address] [id number] [address] [place] [address], [place] [address] May, [facility] [address] [id number] [address] [place] [address], [place] [address] May, [facility] [address] [id number] [address] [place] [address], [place] [address] Apr, [facility] [address] [id number] [address] [place] [address], [place] [address] Apr, [facility] [address] [id number] [address] [place] [address], [place] [address] Apr, [facility] [address] [id number] [address] [place] [address], [place] [address] Apr, [facility] [address] [id number] [address] [place] [address], [place] [address] Mar, [facility] [address] [id number] [address] [place] [address], [place] [address] Mar, [facility] [address] [id number] [address] [place] [address], [place] [address] Mar, [facility] [address] [id number] [address] [place] [address], [place] [address] Mar, [facility] [address] [id number] [address] [place] [address], [place] [address] Mar, [facility] [address] [id number] [address] [place] [address], [place] [address] Mar, [facility] [address] [id number] [address] [place] [address], [place] [address] Feb, [facility] [address] [id number] [address] [place] [address], [place] [address] Feb, [facility] [address] [id number] [address] [place] [address], [place] [address] Feb, [facility] [address] [id number] [address] [place] [address], [place] [address] Feb, [facility] [address] [id number] [facility] [address] Feb, 2013 [facility] [address] [id number] [facility] [address] Feb, [facility] [address] [id number] [address] [place] [address], [place] [address] Feb, 2013 [facility] [address] [id number] [address] [place] [address], [place] [address] Feb, 2013 [facility] [address] [id number] [address] [place] [address], [place] [address] Feb, 2013 [facility] [address] [id number] [address] [place] [address], [place] [address] Feb, [facility] [address] [id number] [address] [place] [address], [place] [address] Feb, [facility] [address] [id number] [address] [place] [address], [place] [address] Feb, [facility] [address] [id number] [address] [place] [address], [place] [address] Jan, [facility] [address] [id number] [address] [place] [address], [place] [address] Jan, [facility] [address] [id number] [address] [place] [address], [place] [address] Jan, [facility] [address] [id number] [address] [place] [address], [place] [address] Jan, [facility] [address] [id number] [address] [place] [address], [place] [address] Jan, [facility] [address] [id number] [address] [place] [address], [place] [address] Jan, [facility] [address] [id number] [address] [place] [address], [place] [address] Jan, [facility] [address] [id number] [address] [place] [address], [place] [address] Jan, [facility] [address] [id number] [address] [place] [address], [place] [address] Jan, [facility] [address] [id number] [address] [place] [address], [place] [address] Jan, [facility] [address] [id number] [address] [place] [address], [place] [address] Jan, [facility] [address] [id number] [address] [place] [address], [place] [address] Jan, [facility] [address] [id number] [address] [place] [address], [place] [address] Jan, [facility] [address] [id number] [address] [place] [address], [place] [address] Jan, [facility] [address] [id number] [address] [place] [address], [place] [address] Jan, [facility] [address] [id number] [address] [place] [address], [place] [address] Jan, [facility] [address] [id number] [address] [place] [address], [place] [address] Jan, [facility] [address] [id number] [address] [place] [address], [place] [address] December, [facility] [address] [id number] [address] [place] [address], [place] [address] December, [facility] [address] [id number] [address] [place] [address], [place] [address] December, [facility] [address] [id number] [address] [place] [address], [place] [address] December, [facility] [address] [id number] [address] [place] [address], [place] [address] December, [facility] [address] [id number] [address] [place] [address], [place] [address] December, [facility] [address] [id number] [address] [place] [address], [place] [address] Nov, [facility] [address] [id number] [address] [place] [address], [place] [address] Nov, [facility] [address] [id number] [address] [place] [address], [place] [address] Nov, [facility] [address] [id number] [address] [place] [address], [place] [address] Nov, [facility] [address] [id number] [address] [place] [address], [place] [address] Nov, [facility] [address] [id number] [address] [place] [address], [place] [address] Nov, [facility] [address] [id number] [address] [place] [address], [place] [address] Nov, [facility] [address] [id number] [address] [place] [address], [place] [address] Nov, [facility] [address] [id number] [address] [place] [address], [place] [address] Nov, [facility] [address] [id number] [address] [place] [address], [place] [address] Nov, [facility] [address] [id number] [address] [place] [address], [place] [address] Nov, [facility] [address] [id number] [address] [place] [address], [place] [address] Nov, [facility] [address] [id number] [address] [place] [address], [place] [address] Nov, [facility] [address] [id number] [address] [place] [address], [place] [address] Nov, [facility] [address] [id number] [address] [place] [address], [place] [address] Nov, [facility] [address] [id number] [address] [place] [address], [place] [address] Nov, [facility] [address] [id number] [address] [place] [address], [place] [address] Oct, [facility] [address] [id number] [address] [place] [address], [place] [address] Oct, [facility] [address] [id number] [address] [place] [address], [place] [address] Oct, [facility] [address] [id number] [address] [place] [address], [place] [address] Oct, [facility] [address] [id number] [address] [place] [address], [place] [address] Oct, [facility] [address] [id number] [address] [place] [address], [place] [address] Oct, [facility] [address] [id number] [address] [place] [address], [place] [address] Oct, [facility] [address] [id number] [address] [place] [address], [place] [address] Oct, [facility] [address] [id number] [address] [place] [address], [place] [address] Sep, [facility] [address] [id number] [address] [place] [address], [place] [address] Sep, [facility] [address] [id number] [address] [place] [address], [place] [address] Sep, [facility] [address] [id number] [address] [place] [address], [place] [address] Sep, [facility] [address] [id number] [address] [place] [address], [place] [address] Sep, [facility] [address] [id number] [address] [place] [address], [place] [address] Sep, [facility] [address] [id number] [address] [place] [address], [place] [address] Aug, [facility] [address] [id number] [address] [place] [address], [place] [address] Aug, [facility] [address] [id number] [address] [place] [address], [place] [address] Aug, [facility] [address] [id number] [address] [place] [address], [place] [address] Aug, [facility] [address] [id number] [address] [place] [address], [place] [address] Aug, [facility] [address] [id number] [address] [place] [address], [place] [address] Aug, [facility] [address] [id number] [address] [place] [address], [place] [address] Aug, [facility] [address] [id number] [address] [place] [address], [place] [address] Aug, [facility] [address] [id number] [address] [place] [address], [place] [address] Jul, [facility] [address] [id number] [address] [place] [address], [place] [address] Jul, [facility] [address] [id number] [address] [place] [address], [place] [address] Jul, [facility] [address] [id number] [address] [place] [address], [place] [address] Jul, [facility] [address] [id number] [address] [place] [address], [place] [address] Jul, [facility] [address] [id number] [address] [place] [address], [place] [address] Jul, [facility] [address] [id number] [address] [place] [address], [place] [address] Jul, [facility] [address] [id number] [address] [place] [address], [place] [address] Jul, [facility] [address] [id number] [address] [place] [address], [place] [address] Jul, [facility] [address] [id number] [address] [place] [address], [place] [address] 14 Jun, 2013 [facility] [address] [id number] [address] [place] [address], [place] [address] 14 Jun, 2013 [facility] [address] [id number] [address] [place] [address], [place] [address] Jun, [facility] [address] [id number] [address] [place] [address], [place] [address] Jun, [facility] [address] [id number] [address] [place] [address], [place] [address] Jun, [facility] [address] [id number] [address] [place] [address], [place] [address] Jun, [facility] [address] [id number] [address] [place] [address], [place] [address] 31 May, 2013 [facility] [address] [id number] [address] [place] [address], [place] [address] 31 May, 2013 [facility] [address] [id number] [address] [place] [address], [place] [address] 17 May, 2013 [facility] [address] [id number] [address] [place] [address], [place] [address] 17 May, 2013 [facility] [address] [id number] [address] [place] [address], [place] [address] 14 May, 2013 [facility] [address] [id number] [address] [place] [address], [place] [address] 14 May, 2013 [facility] [address] [id number] [address] [place] [address], [place] [address] 10 May, 2013 [facility] [address] [id number] [address] [place] [address], [place] [address] 10 May, 2013 [facility] [address] [id number] [address] [place] [id number] 07 May, 2013 [facility] [address] [id number] [address] [place] [id number] 20 Sep, 2012 [facility] [address] [id number] [address] [place] [address], [place] [address] 19 Sep, 2012 [facility] [address] [id number] [address] [place] [address], [place] [address] 12 Apr, 2012 [facility] [address] [id number] [address] [place] [address], [place] [address] 24 Sep, 2011 [facility] [address] [id number] [address] [place] [address], [place] [address] 21 Sep, 2011 [facility] [address] [id number] [address] [place] [address], [place] [address] 21 Apr, 2011 [facility] [address] [id number] [address] [place] [address], [place] [address] 14 Apr, 2011 [facility] [address] [id number] [address] [place] [address], [place] [address] 10 Apr, 2011 [facility] [address] [id number] [address] [place] [address], [place] [address] 06 Apr, 2011 [facility] [address] [id number] [address] [place] [address], [place] [address] 04 Apr, 2011 [facility] [address] [id number] [address] [place] [address], [place] [address] 31 Mar, 2012 [facility] [address] [address] [id number] [address] [place] [address], [place] [address] 28 Mar, 2012 [facility] [address] [id number] [address] [place] [address], [place] [address] 27 Mar, 2012 [facility] [address] [id number] [address] [place] [address], [place] [address] 10 Mar, 2012 [facility] [address] [id number] [address] [place] [address], [place] [address] 08 Mar, 2012 [facility] [address] [id number] [address] [place] [address], [place] [address] 03 Mar, 2012 [facility] [address] [id number] [address] [place] [address], [place] [address] Feb, [facility] [address] [id number] [address] [place] [address], [place] [address] Feb, [facility] [address] [id number] [address] [place] [address], [place] [address] Feb, [facility] [address] [id number] [address] [place] [address], [place] [address] Jan, [facility] [address] [id number] [address] [place] [address], [place] [address] Jan, [facility] [address] [id number] [address] [place] [address], [place] [address] Jan, [facility] [address] [id number] [address] [place] [address], [place] [address] Jan, [facility] [address] [id number] [address] [place] [address], [place] [address] Jan, [facility] [address] [id number] [address] [place] [address], [place] [address] Jan, [facility] [address] [id number] [address] [place] [address], [place] [address] Jan, [facility] [address] [id number] [address] [place] [address], [place] [address] Jan, [facility] [address] [id number] [address] [place] [address], [place] [address] December, [facility] [address] [id number] [address] [place] [address], [place] [address] December, [facility] [address] [id number] [address] [place] [address], [place] [address] December, [facility] [address] [id number] [address] [place] [address], [place] [address] December, [facility] [address] [id number] [address] [place] [address], [place] [address] December, [facility] [address] [id number] [address] [place] [address], [place] [address] December, [facility] [address] [id number] [address] [place] [address], [place] [address] 13 Nov, 2011 [facility] [address] [id number] [address] [place] [address], [place] [address] 13 Nov, 2011 [facility] [address] [id number] [address] [place] [address], [place] [address] Nov, [facility] [address] [id number] [address] [place] [address], [place] [address] Nov, [facility] [address] [id number] [address] [place] [address], [place] [address] Nov, [facility] [address] [id number] [address] [place] [address], [place] [address] Oct, [facility] [address] [id number] [address] [place] [address], [place] [address] 17 Sep, 2011 [facility] [address] [id number] [address] [place] [address], [place] [address] Aug, [facility] [address] [id number] [address] [place] [address], [place] [address] Aug, [facility] [address] [id number] [address] [place] [address], [place] [address] Aug, [facility] [address] [id number] [address] [place] [address], [place] [address] Aug, [facility] [address] [id number] [address] [place] [address], [place] [address] Aug, [facility] [address] [id number] [address] [place] [address], [place] [address] Jul, [facility] [address] [id number] [address] [place] [address], [place] [address] Jul, [facility] [address] [id number] [address] [place] [address], [place] [address] Jun, [facility] [address] [id number] [address] [place] [address], [place] [address] Jun, [facility] [address] [id number] [address] [place] [address], [place] [address] Jun, [facility] [address] [id number] [address] [place] [address], [place] [address] May, [facility] [address] [id number] [address] [place] [address], [place] [address] May, [facility] [address] [id number] [address] [place] [address], [place] [address] 16 Oct, 2010 [facility] [address] [id number] [address] [place] [address], [place] [address] Oct, [facility] [address] [id number] [address] [place] [address], [place] [address] 29 Jul, 2010 [facility] [address] [id number] [address] [place] [address], [place] [address] 08 Jul, 2010 [facility] [address] [id number] [address] [place] [address], [place] [address] Jul, [facility] [address] [id number] [address] [place] [address], [place] [address] Jul, [facility] [address] [id number] [address] [place] [address], [place] [address] Jul, [facility] [address] [id number] [address] [place] [address], [place] [address] Jun, [facility] [address] [id number] [address] [place] [address], [place] [address] Jun, [facility] [address] [id number] [address] [place] [address], [place] [address] Jun, [facility] [address] [id number] [address] [place] [address], [place] [address] May, [facility] [address] [facility] [id number] [address] [place] [address] 16 Mar, 2010 IMMUNIZATIONS No Known Immunizations SOCIAL HISTORY Never Assessed REASON FOR VISIT PLAN OF CARE VITAL SIGNS Height 60 in 2012-02-04 Weight 206.31 lbs 2012-02-04 Temperature 96.7 degrees Fahrenheit 2012-02-04 Heart Rate 80 bpm 2012-02-04 Respiratory Rate 16 2012-02-04 Blood pressure systolic 118 mmHg 2012-02-04 Blood pressure diastolic 74 mmHg 2012-02-04 MEDICATIONS Unknown Medications RESULTS No Results PROCEDURES Procedure Date Ordered Result Body Site ASSAY OF LIPASE February 04, 2012 ASSAY OF CK (CPK) February 04, 2012 COMPREHEN METABOLIC PANEL February 04, 2012 VENIPUNCT, ROUTINE* February 04, 2012 INSTRUCTIONS MEDICATIONS ADMINISTERED No Known Medications MEDICAL (GENERAL) HISTORY Type Description Date Medical History Hypertension Medical History Chronic obstructive pulmonary disease Medical History Type 2 diabetes mellitus Medical History Psychiatric disorders depression Surgical History Hysterectomy total abdominal 1996 Surgical History Orthopedic Surgery Surgical History Scleral buckle Hospitalization History No Hospitalization history informati on
--- OUTSIDE RECORDS SUMMARY | 2020-03-12 09:31 | XMS REPORT ---
Author Author Caren Barba Doctor Organization [facility] Address Unknown Phone Unavailable Care Team Providers Care Student Finance Advisor Name Role Phone Migration, Doctor Unavailable Unavailable PROBLEMS Type Condition ICD9-CM Code UZP16-OY Code Onset Dates Condition S tatus SNOMED Code Problem COPD (chronic obstructive pulmonary disease) J44.9 Active 02600182 Problem Diabetes E11.9 Active 68504238 Problem Diabetic neuropathy E11.40 Active 979541805 Problem Arthritis M19.90 Active 9580685 ALLERGIES No Information ENCOUNTERS Encounter Location Date Diagnosis [facility] [address] [id number] [address] [place] [id number] December, [facility] [address] [id number] [address] [place] [address] Aug, Arthritis M19.90 [facility] [address] [id number] [address] [place] [id number] Jul, [facility] [address] [id number] [address] [place] [id number] Jul, [facility] [address] [facility] [id number] [address] [place] [phone] Jul, [facility] [address] [id number] [address] [place] [phone] Jul, [facility] [address] [id number] [address] [place] [id number] Jul, Diabetes E11.9 ; Diabetic ne uropathy E11.40 ; Arthritis M19.90 and COPD (chronic obstructive pulmonary disease) J44.9 [facility] [address] [id number] [address] [place] [id number] Jul, [facility] [address] [facility] [id number] [address] [place] [phone] Jun, [facility] [address] [id number] [address] [place] [address], [place] [address] Jun, [facility] [address] [id number] [address] [place] [address], [place] [address] 17 Jun, 2015 [facility] [address] [id number] [address] [place] [address], [place] [address] 10 Jun, 2015 [facility] [address] [id number] [address] [place] [address], [place] [address] 15 May, 2015 [facility] [address] [id number] [address] [place] [address], [place] [address] 13 May, 2015 [facility] [address] [id number] [address] [place] [address], [place] [address] 07 May, 2015 [facility] [address] [id number] [address] [place] [address], [place] [address] 22 Apr, 2014 [facility] [address] [id number] [address] [place] [address], [place] [address] 21 Sep, 2014 [facility] [address] [id number] [address] [place] [address], [place] [address] 21 Sep, 2014 [facility] [address] [id number] [address] [place] [id number] 15 Apr, 2014 [facility] [address] [id number] [address] [place] [id number] 11 Sep, 2014 [facility] [address] [id number] [address] [place] [id number] 09 Sep, 2014 [facility] [address] [id number] [address] [place] [id number] 08 Sep, 2014 [facility] [address] [id number] [address] [place] [id number] 03 Sep, 2014 [facility] [address] [id number] [address] [place] [id number] 02 Sep, 2014 [facility] [address] [id number] [address] [place] [id number] Mar, [facility] [address] [facility] [id number] [address] [place] [phone] Mar, [facility] [address] [facility] [id number] [address] [place] [id number] Mar, [facility] [address] [facility] [id number] [address] [place] [phone] Mar, [facility] [address] [facility] [id number] [address] [place] [id number] Mar, [facility] [address] [facility] [id number] [address] [place] [id number] Mar, Diabetes mellitus 250.00 ; C OPD (chronic obstructive pulmonary disease) 496 ; Anxiety 300.00 and Arthritis 716.90 [facility] [address] [facility] [id number] [address] [place] [id number] Feb, [facility] [address] [facility] [id number] [address] [place] [phone] Feb, [facility] [address] [facility] [id number] [address] [place] [id number] Feb, [facility] [address] [facility] [id number] [address] [place] [id number] Feb, [facility] [address] [facility] [id number] [address] [place] [id number] Jan, Seborrheic keratosis 702.19 and Nevus 216.9 [facility] [address] [facility] [id number] [address] [place] [phone] Jan, [facility] [address] [facility] [id number] [address] [place] [id number] Jan, Routine gynecological examin ation V72.31 ; Breast cancer screening V76.10 ; Hot flashes 627.2 ; Atypical nevi 216.9 and Constipation 564.00 [facility] [address] [facility] [id number] [address] [place] [phone] Jan, [facility] [address] [id number] [address] [place] [address], [place] [address] December, [facility] [address] [id number] [address] [place] [address], [place] [address] December, [facility] [address] [id number] [address] [place] [address], [place] [address] 14 Nov, 2014 [facility] [address] [id number] [address] [place] [address], [place] [address] Nov, [facility] [address] [id number] [address] [place] [address], [place] [address] 23 Oct, 2014 [facility] [address] [id number] [address] [place] [address], [place] [address] 23 Oct, 2014 [facility] [address] [id number] [address] [place] [address], [place] [address] 18 Oct, 2014 [facility] [address] [id number] [address] [place] [address], [place] [address] 18 Oct, 2014 [facility] [address] [id number] [address] [place] [address], [place] [address] 17 Oct, 2014 [facility] [address] [id number] [address] [place] [address], [place] [address] 17 Oct, 2014 [facility] [address] [id number] [address] [place] [address], [place] [address] 16 Oct, 2014 [facility] [address] [id number] [address] [place] [address], [place] [address] 16 Oct, 2014 [facility] [address] [id number] [address] [place] [address], [place] [address] 11 Oct, 2014 [facility] [address] [id number] [address] [place] [address], [place] [address] Oct, [facility] [address] [id number] [address] [place] [address], [place] [address] Sep, [facility] [address] [id number] [address] [place] [address], [place] [address] 27 Sep, 2014 [facility] [address] [id number] [address] [place] [address], [place] [address] Sep, 2014 [facility] [address] [id number] [address] [place] [address], [place] [address] Sep, 2014 [facility] [address] [id number] [address] [place] [address], [place] [address] Sep, 2014 [facility] [address] [id number] [address] [place] [address], [place] [address] Sep, [facility] [address] [id number] [address] [place] [address], [place] [address] Sep, [facility] [address] [id number] [address] [place] [address], [place] [address] Aug, [facility] [address] [id number] [address] [place] [address], [place] [address] Aug, [facility] [address] [id number] [address] [place] [address], [place] [address] Aug, [facility] [address] [id number] [address] [place] [address], [place] [address] Aug, [facility] [address] [id number] [address] [place] [address], [place] [address] Aug, [facility] [address] [id number] [address] [place] [address], [place] [address] Aug, [facility] [address] [id number] [address] [place] [address], [place] [address] Jul, [facility] [address] [id number] [address] [place] [address], [place] [address] Jul, [facility] [address] [id number] [address] [place] [address], [place] [address] Jul, [facility] [address] [id number] [address] [place] [address], [place] [address] Jul, [facility] [address] [id number] [address] [place] [address], [place] [address] Jul, [facility] [address] [id number] [address] [place] [address], [place] [address] Jun, [facility] [address] [id number] [address] [place] [address], [place] [address] Jun, [facility] [address] [id number] [address] [place] [address], [place] [address] Jun, [facility] [address] [id number] [address] [place] [address], [place] [address] Jun, [facility] [address] [id number] [address] [place] [address], [place] [address] Jun, [facility] [address] [id number] [address] [place] [address], [place] [address] Jun, [facility] [address] [id number] [address] [place] [address], [place] [address] May, [facility] [address] [id number] [address] [place] [address], [place] [address] May, [facility] [address] [id number] [address] [place] [address], [place] [address] May, [facility] [address] [id number] [address] [place] [address], [place] [address] May, [facility] [address] [id number] [address] [place] [id number] May, [facility] [address] [id number] [address] [place] [address], [place] [address] May, [facility] [address] [id number] [address] [place] [address], [place] [address] May, [facility] [address] [id number] [address] [place] [address], [place] [address] May, [facility] [address] [id number] [facility] [place] [address] May, [facility] [address] [id number] [facility] [place] [address] Apr, [facility] [address] [id number] [address] [place] [address], [place] [address] Apr, [facility] [address] [id number] [address] [place] [address], [place] [address] Apr, [facility] [address] [id number] [address] [place] [address], [place] [address] Apr, [facility] [address] [id number] [address] [place] [address], [place] [address] Mar, [facility] [address] [id number] [address] [place] [address], [place] [address] Mar, [facility] [address] [id number] [address] [place] [address], [place] [address] Mar, [facility] [address] [id number] [address] [place] [address], [place] [address] Mar, [facility] [address] [id number] [address] [place] [address], [place] [address] Mar, [facility] [address] [id number] [address] [place] [address], [place] [address] Mar, [facility] [address] [id number] [address] [place] [address], [place] [address] Feb, [facility] [address] [id number] [address] [place] [address], [place] [address] Feb, [facility] [address] [id number] [address] [place] [address], [place] [address] Feb, [facility] [address] [id number] [address] [place] [address], [place] [address] Feb, [facility] [address] [id number] [address] [place] [address], [place] [address] Feb, [facility] [address] [id number] [address] [place] [address], [place] [address] Feb, [facility] [address] [id number] [address] [place] [address], [place] [address] Feb, [facility] [address] [id number] [address] [place] [address], [place] [address] Feb, 2013 [facility] [address] [id number] [address] [place] [address], [place] [address] Feb, [facility] [address] [id number] [address] [place] [address], [place] [address] Feb, [facility] [address] [id number] [address] [place] [address], [place] [address] Feb, [facility] [address] [id number] [address] [place] [address], [place] [address] Feb, [facility] [address] [id number] [address] [place] [address], [place] [address] Jan, [facility] [address] [id number] [address] [place] [address], [place] [address] Jan, [facility] [address] [id number] [address] [place] [address], [place] [address] Jan, [facility] [address] [id number] [address] [place] [address], [place] [address] Jan, [facility] [address] [id number] [address] [place] [address], [place] [address] Jan, [facility] [address] [id number] [address] [place] [address], [place] [address] Jan, [facility] [address] [id number] [address] [place] [address], [place] [address] Jan, [facility] [address] [id number] [address] [place] [address], [place] [address] Jan, [facility] [address] [id number] [address] [place] [address], [place] [address] Jan, [facility] [address] [id number] [address] [place] [address], [place] [address] Jan, [facility] [address] [id number] [address] [place] [address], [place] [address] Jan, [facility] [address] [id number] [address] [place] [address], [place] [address] Jan, [facility] [address] [id number] [address] [place] [address], [place] [address] Jan, [facility] [address] [id number] [address] [place] [address], [place] [address] Jan, [facility] [address] [id number] [address] [place] [address], [place] [address] Jan, [facility] [address] [id number] [address] [place] [address], [place] [address] Jan, [facility] [address] [id number] [address] [place] [address], [place] [address] Jan, [facility] [address] [id number] [address] [place] [address], [place] [address] December, [facility] [address] [id number] [address] [place] [address], [place] [address] December, [facility] [address] [id number] [address] [place] [address], [place] [address] December, [facility] [address] [id number] [address] [place] [address], [place] [address] December, [facility] [address] [id number] [address] [place] [address], [place] [address] December, [facility] [address] [id number] [address] [place] [address], [place] [address] December, [facility] [address] [id number] [address] [place] [address], [place] [address] Nov, [facility] [address] [id number] [facility] [place] [address] Nov, [facility] [address] [id number] [address] [place] [address], [place] [address] Nov, [facility] [address] [id number] [address] [place] [address], [place] [address] Nov, [facility] [address] [id number] [address] [place] [address], [place] [address] Nov, [facility] [address] [id number] [address] [place] [address], [place] [address] Nov, [facility] [address] [id number] [address] [place] [address], [place] [address] Nov, [facility] [address] [id number] [address] [place] [address], [place] [address] Nov, [facility] [address] [id number] [address] [place] [address], [place] [address] Nov, [facility] [address] [id number] [address] [place] [address], [place] [address] Nov, [facility] [address] [id number] [address] [place] [address], [place] [address] Nov, [facility] [address] [id number] [address] [place] [address], [place] [address] Nov, [facility] [address] [id number] [address] [place] [address], [place] [address] Nov, [facility] [address] [id number] [address] [place] [address], [place] [address] Nov, [facility] [address] [id number] [address] [place] [address], [place] [address] Nov, [facility] [address] [id number] [address] [place] [address], [place] [address] Nov, [facility] [address] [id number] [address] [place] [address], [place] [address] Oct, [facility] [address] [id number] [facility] [place] [address] Oct, [facility] [address] [id number] [address] [place] [address], [place] [address] Oct, [facility] [address] [id number] [address] [place] [address], [place] [address] Oct, [facility] [address] [id number] [address] [place] [address], [place] [address] Oct, [facility] [address] [id number] [address] [place] [address], [place] [address] Oct, [facility] [address] [id number] [address] [place] [address], [place] [address] Oct, [facility] [address] [id number] [address] [place] [address], [place] [address] Oct, [facility] [address] [id number] [address] [place] [address], [place] [address] Sep, [facility] [address] [id number] [address] [place] [address], [place] [address] Sep, [facility] [address] [id number] [address] [place] [address], [place] [address] Sep, [facility] [address] [id number] [address] [place] [address], [place] [address] Sep, [facility] [address] [id number] [address] [place] [address], [place] [address] Sep, [facility] [address] [id number] [address] [place] [address], [place] [address] Sep, [facility] [address] [id number] [address] [place] [address], [place] [address] Aug, [facility] [address] [id number] [address] [place] [address], [place] [address] Aug, [facility] [address] [id number] [address] [place] [address], [place] [address] Aug, [facility] [address] [id number] [address] [place] [address], [place] [address] Aug, [facility] [address] [id number] [address] [place] [address], [place] [address] Aug, [facility] [address] [id number] [address] [place] [address], [place] [address] Aug, [facility] [address] [id number] [address] [place] [address], [place] [address] Aug, [facility] [address] [id number] [address] [place] [address], [place] [address] Aug, [facility] [address] [id number] [address] [place] [address], [place] [address] Jul, [facility] [address] [id number] [address] [place] [address], [place] [address] Jul, [facility] [address] [id number] [address] [place] [address], [place] [address] Jul, [facility] [address] [id number] [address] [place] [address], [place] [address] Jul, [facility] [address] [id number] [address] [place] [address], [place] [address] Jul, [facility] [address] [id number] [address] [place] [address], [place] [address] Jul, [facility] [address] [id number] [address] [place] [address], [place] [address] Jul, [facility] [address] [id number] [address] [place] [address], [place] [address] Jul, [facility] [address] [id number] [address] [place] [address], [place] [address] Jul, [facility] [address] [id number] [address] [place] [address], [place] [address] Jun, [facility] [address] [id number] [address] [place] [address], [place] [address] 14 Jun, 2013 [facility] [address] [id number] [address] [place] [address], [place] [address] 13 Jun, 2013 [facility] [address] [id number] [address] [place] [address], [place] [address] 13 Jun, 2013 [facility] [address] [id number] [address] [place] [address], [place] [address] 07 Jun, 2013 [facility] [address] [id number] [address] [place] [address], [place] [address] 07 Jun, 2013 [facility] [address] [id number] [address] [place] [address], [place] [address] 31 May, 2013 [facility] [address] [id number] [address] [place] [address], [place] [address] 31 May, 2013 [facility] [address] [id number] [address] [place] [id number] 17 May, 2013 [facility] [address] [id number] [address] [place] [address], [place] [address] 17 May, 2013 [facility] [address] [id number] [address] [place] [id number] 14 May, 2013 [facility] [address] [id number] [address] [place] [id number] 14 May, 2013 [facility] [address] [id number] [address] [place] [id number] 10 May, 2013 [facility] [address] [id number] [address] [place] [address], [place] [address] 10 May, 2013 [facility] [address] [id number] [address] [place] [id number] 07 May, 2013 [facility] [address] [id number] [address] [place] [address], [place] [address] 20 Apr, 2013 [facility] [address] [id number] [address] [place] [address], [place] [address] 19 Sep, 2012 [facility] [address] [id number] [address] [place] [address], [place] [address] 12 Sep, 2012 [facility] [address] [id number] [address] [place] [address], [place] [address] 24 Sep, 2011 [facility] [address] [id number] [address] [place] [address], [place] [address] 21 Sep, 2011 [facility] [address] [id number] [address] [place] [address], [place] [address] 21 Sep, 2011 [facility] [facility] [address] [id number] [address] [place] [address], [place] [address] 14 Apr, 2011 [facility] [address] [id number] [address] [place] [address], [place] [address] 10 Apr, 2011 [facility] [address] [id number] [address] [place] [address], [place] [address] 06 Apr, 2011 [facility] [address] [id number] [address] [place] [address], [place] [address] 04 Apr, 2011 [facility] [address] [id number] [address] [place] [address], [place] [address] 31 Mar, 2012 [facility] [address] [id number] [address] [place] [address], [place] [address] 28 Mar, 2012 [facility] [address] [id number] [address] [place] [address], [place] [address] 27 Mar, 2012 [facility] [address] [id number] [address] [place] [address], [place] [address] 10 Mar, 2012 [facility] [address] [id number] [address] [place] [address], [place] [id number] 08 Mar, 2012 [facility] [address] [id number] [address] [place] [address], [place] [address] 03 Mar, 2012 [facility] [address] [id number] [address] [place] [address], [place] [address] 20 Feb, 2012 [facility] [address] [id number] [address] [place] [address], [place] [address] 10 Feb, 2012 [facility] [address] [id number] [address] [place] [address], [place] [address] Feb, [facility] [address] [id number] [address] [place] [address], [place] [address] Jan, [facility] [address] [id number] [address] [place] [address], [place] [address] Jan, [facility] [address] [id number] [address] [place] [address], [place] [address] Jan, [facility] [address] [id number] [address] [place] [address], [place] [address] Jan, [facility] [address] [id number] [address] [place] [address], [place] [address] Jan, [facility] [address] [id number] [address] [place] [address], [place] [address] Jan, [facility] [address] [id number] [address] [place] [address], [place] [address] Jan, [facility] [address] [id number] [address] [place] [address], [place] [address] Jan, [facility] [address] [id number] [address] [place] [address], [place] [address] December, [facility] [address] [id number] [address] [place] [address], [place] [address] December, [facility] [address] [id number] [address] [place] [address], [place] [address] December, [facility] [address] [id number] [address] [place] [address], [place] [address] December, [facility] [address] [id number] [address] [place] [address], [place] [address] December, [facility] [address] [id number] [address] [place] [address], [place] [address] December, [facility] [address] [id number] [address] [place] [address], [place] [address] 13 Nov, 2011 [facility] [address] [id number] [address] [place] [address], [place] [address] 13 Nov, 2011 [facility] [address] [id number] [address] [place] [address], [place] [address] 13 Nov, 2011 [facility] [address] [id number] [address] [place] [address], [place] [address] 13 Nov, 2011 [facility] [address] [id number] [address] [place] [address], [place] [address] Nov, [facility] [address] [id number] [address] [place] [address], [place] [address] 15 Oct, 2011 [facility] [address] [id number] [address] [place] [address], [place] [address] 17 Sep, 2011 [facility] [address] [id number] [address] [place] [address], [place] [address] Aug, [facility] [address] [id number] [address] [place] [address], [place] [address] Aug, [facility] [address] [id number] [address] [place] [address], [place] [address] Aug, [facility] [address] [id number] [address] [place] [address], [place] [address] Aug, [facility] [address] [id number] [address] [place] [address], [place] [address] Aug, [facility] [address] [id number] [address] [place] [address], [place] [address] Jul, [facility] [address] [id number] [address] [place] [address], [place] [address] Jul, [facility] [address] [id number] [address] [place] [address], [place] [address] Jun, [facility] [address] [id number] [address] [place] [address], [place] [address] 04 Jun, 2011 [facility] [address] [id number] [address] [place] [address], [place] [address] Jun, [facility] [address] [id number] [address] [place] [address], [place] [address] 18 May, 2011 [facility] [address] [id number] [address] [place] [address], [place] [address] May, [facility] [address] [id number] [address] [place] [address], [place] [address] 16 Oct, 2010 [facility] [address] [id number] [address] [place] [address], [place] [address] Oct, [facility] [address] [id number] [address] [place] [address], [place] [address] Jul, [facility] [address] [id number] [address] [place] [address], [place] [address] 08 Jul, 2010 [facility] [address] [id number] [address] [place] [address], [place] [address] Jul, [facility] [address] [id number] [address] [place] [address], [place] [address] Jul, [facility] [address] [id number] [address] [place] [address], [place] [address] Jul, [facility] [address] [id number] [address] [place] [address], [place] [address] Jun, [facility] [address] [id number] [address] [place] [address], [place] [address] Jun, [facility] [address] [id number] [address] [place] [address], [place] [address] Jun, [facility] [address] [id number] [address] [place] [address], [place] [address] May, [facility] [address] [id number] [address] [place] [id number] 16 Mar, 2010 IMMUNIZATIONS No Known Immunizations SOCIAL HISTORY Never Assessed REASON FOR VISIT PLAN OF CARE VITAL SIGNS Height 60 in 2012-02-16 Weight 207.25 lbs 2012-02-16 Temperature 97.8 degrees Fahrenheit 2012-02-16 Heart Rate 90 bpm 2012-02-16 Respiratory Rate 18 2012-02-16 Blood pressure systolic 128 mmHg 2012-02-16 Blood pressure diastolic 88 mmHg 2012-02-16 MEDICATIONS Unknown Medications RESULTS No Results PROCEDURES [...]
--- OUTSIDE RECORDS SUMMARY | 2020-03-12 09:31 | XMS REPORT ---
Author Author Caren LYLE Organization [facility] Address [address] [place] [address] Care Team Providers Care Service Car Operator Name Role Phone LAURIE LYLE Unavailable PROBLEMS Type Condition ICD9-CM Code QZC07-DJ Code Onset Dates Condition S tatus SNOMED Code Problem COPD (chronic obstructive pulmonary disease) J44.9 Active 53937519 Problem Diabetes E11.9 Active 26278477 Problem Diabetic neuropathy E11.40 Active 693686737 Problem Arthritis M19.90 Active [id number] ALLERGIES No Information ENCOUNTERS Encounter Location Date Diagnosis [facility] [address] [facility] [id number] [address] [place] [id number] December, [facility] [address] [id number] [address] [place] [address] Aug, Arthritis M19.90 [facility] [address] [facility] [place] [id number] [address] [place] [address] Jul, [facility] [address] [facility] [place] [id number] [address] [place] [address] Jul, [facility] [address] [facility] [place] [id number] [address] [place] [id number] Jul, [facility] [address] [id number] [address] [place] [id number] Jul, [facility] [address] [facility] [place] [id number] [address] [place] [address] Jul, Diabetes E11.9 ; Diabetic ne uropathy E11.40 ; Arthritis M19.90 and COPD (chronic obstructive pulmonary disease) J44.9 [facility] [address] [facility] [place] [id number] [address] [place] [id number] Jul, [facility] [address] [id number] [address] [place] [address], [place] [address] 23 Jun, 2015 [facility] [address] [id number] [address] [place] [address], [place] [address] 23 Jun, 2015 [facility] [address] [id number] [address] [place] [address], [place] [address] 17 Jun, 2014 [facility] [address] [id number] [address] [place] [address], [place] [address] 10 Jun, 2014 [facility] [address] [id number] [address] [place] [address], [place] [address] 15 May, 2015 [facility] [address] [id number] [address] [place] [address], [place] [address] 13 May, 2015 [facility] [address] [id number] [address] [place] [address], [place] [address] 07 May, 2015 [facility] [address] [id number] [address] [place] [address], [place] [address] 22 Sep, 2014 [facility] [address] [id number] [address] [place] [address], [place] [address] 21 Sep, 2014 [facility] [address] [id number] [address] [place] [address], [place] [address] 21 Sep, 2014 [facility] [address] [id number] [address] [place] [address], [place] [address] 15 Sep, 2014 [facility] [address] [id number] [address] [place] [address], [place] [address] 11 Sep, 2014 [facility] [address] [id number] [address] [place] [address], [place] [address] 09 Sep, 2014 [facility] [address] [id number] [address] [place] [address], [place] [address] 08 Sep, 2014 [facility] [address] [id number] [address] [place] [address], [place] [address] 03 Sep, 2014 [facility] [address] [id number] [address] [place] [address] [address] Apr, [facility] [address] [facility] [place] [id number] [address] [place] [id number] Mar, [facility] [address] [facility] [place] [id number] [address] [place] [id number] Mar, [facility] [address] [facility] [id number] [address] [place] [id number] Mar, [facility] [address] [facility] [id number] [address] [place] [id number] Mar, [facility] [address] [facility] [id number] [address] [place] [id number] Mar, [facility] [address] [facility] [place] [id number] [address] [place] [id number] Mar, Diabetes mellitus 250.00 ; C OPD (chronic obstructive pulmonary disease) 496 ; Anxiety 300.00 and Arthritis 716.90 [facility] [address] [facility] [place] [id number] [address] [place] [id number] Feb, [facility] [address] [facility] [place] [id number] [address] [place] [phone] Feb, [facility] [address] [facility] [place] [id number] [address] [place] [id number] Feb, [facility] [address] [facility] [place] [id number] [address] [place] [id number] Feb, [facility] [address] [facility] [place] [id number] [address] [place] [address] Jan, Seborrheic keratosis 702.19 and Nevus 216.9 [facility] [address] [facility] [id number] [address] [place] [id number] Jan, [facility] [address] [facility] [place] [id number] [address] [place] [id number] Jan, Routine gynecological examin ation V72.31 ; Breast cancer screening V76.10 ; Hot flashes 627.2 ; Atypical nevi 216.9 and Constipation 564.00 [facility] [address] [id number] [address] [place] [address], [place] [address] Jan, [facility] [address] [id number] [address] [place] [address], [place] [address] December, [facility] [address] [id number] [address] [place] [address], [place] [address] December, [facility] [address] [id number] [address] [place] [address], [place] [address] Nov, [facility] [address] [id number] [address] [place] [address], [place] [address] Nov, [facility] [address] [id number] [address] [place] [address], [place] [address] Oct, [facility] [address] [id number] [address] [place] [address], [place] [address] 23 Oct, 2014 [facility] [address] [id number] [address] [place] [address], [place] [address] 18 Oct, 2014 [facility] [address] [id number] [address] [place] [address], [place] [address] 18 Oct, 2014 [facility] [address] [id number] [address] [place] [address], [place] [address] 17 Oct, 2014 [facility] [address] [id number] [address] [place] [address], [place] [address] 17 Oct, 2014 [facility] [address] [id number] [address] [place] [id number] 16 Oct, 2014 [facility] [address] [id number] [address] [place] [address], [place] [address] 16 Oct, 2014 [facility] [address] [id number] [address] [place] [address], [place] [address] 11 Oct, 2014 [facility] [address] [id number] [address] [place] [address], [place] [address] 11 Oct, 2014 [facility] [address] [id number] [address] [place] [address], [place] [address] Sep, 2014 [facility] [address] [id number] [address] [place] [address], [place] [address] Sep, 2014 [facility] [address] [id number] [address] [place] [address], [place] [address] 19 Sep, 2014 [facility] [address] [id number] [address] [place] [address], [place] [address] 18 Sep, 2014 [facility] [address] [id number] [address] [place] [address], [place] [address] Sep, 2014 [facility] [address] [id number] [address] [place] [address], [place] [address] Sep, 2014 [facility] [address] [id number] [address] [place] [address], [place] [address] Sep, 2014 [facility] [address] [id number] [address] [place] [address], [place] [address] Aug, [facility] [address] [id number] [address] [place] [address], [place] [address] Aug, [facility] [address] [id number] [address] [place] [address], [place] [address] Aug, [facility] [address] [id number] [address] [place] [address], [place] [address] Aug, [facility] [address] [id number] [address] [place] [address], [place] [address] Aug, [facility] [address] [id number] [address] [place] [address], [place] [address] Aug, [facility] [address] [id number] [address] [place] [address], [place] [address] Jul, [facility] [address] [id number] [address] [place] [address], [place] [address] Jul, [facility] [address] [id number] [address] [place] [address], [place] [address] Jul, [facility] [address] [id number] [address] [place] [address], [place] [address] Jul, [facility] [address] [id number] [address] [place] [address], [place] [address] Jul, [facility] [address] [id number] [address] [place] [address], [place] [address] Jun, [facility] [address] [id number] [address] [place] [address], [place] [address] Jun, [facility] [address] [id number] [address] [place] [address], [place] [address] Jun, [facility] [address] [id number] [address] [place] [address], [place] [address] Jun, [facility] [address] [id number] [address] [place] [address], [place] [address] Jun, [facility] [address] [id number] [address] [place] [address], [place] [address] Jun, [facility] [address] [id number] [address] [place] [address], [place] [address] May, [facility] [address] [id number] [address] [place] [address], [place] [address] May, [facility] [address] [id number] [address] [place] [address], [place] [address] May, [facility] [address] [id number] [address] [place] [id number] May, [facility] [address] [id number] [address] [place] [address], [place] [address] May, [facility] [address] [id number] [address] [place] [address], [place] [address] May, [facility] [address] [id number] [address] [place] [address], [place] [address] May, [facility] [address] [id number] [address] [place] [address], [place] [address] May, [facility] [address] [id number] [address] [place] [address], [place] [address] May, [facility] [address] [id number] [address] [place] [address], [place] [address] Apr, [facility] [address] [id number] [address] [place] [address], [place] [address] Apr, [facility] [address] [id number] [address] [place] [address], [place] [address] Apr, [facility] [address] [id number] [address] [place] [address], [place] [address] Apr, [facility] [address] [id number] [address] [place] [address], [place] [address] Mar, [facility] [address] [id number] [address] [place] [address], [place] [address] Mar, [facility] [address] [id number] [address] [place] [address], [place] [address] Mar, [facility] [address] [id number] [address] [place] [address], [place] [address] Mar, [facility] [address] [id number] [address] [place] [address], [place] [address] Mar, [facility] [address] [id number] [address] [place] [address], [place] [address] Mar, [facility] [address] [id number] [address] [place] [address], [place] [address] Feb, [facility] [address] [id number] [address] [place] [address], [place] [address] Feb, [facility] [address] [id number] [address] [place] [address], [place] [address] Feb, [facility] [address] [id number] [address] [place] [address], [place] [address] Feb, [facility] [address] [id number] [facility] [place] [address] Feb, 2013 [facility] [address] [id number] [facility] [place] [address] Feb, [facility] [address] [id number] [address] [place] [address], [place] [address] Feb, 2013 [facility] [address] [id number] [address] [place] [address], [place] [address] Feb, 2013 [facility] [address] [id number] [address] [place] [address], [place] [address] Feb, 2013 [facility] [address] [id number] [address] [place] [address], [place] [address] Feb, [facility] [address] [id number] [address] [place] [address], [place] [address] Feb, [facility] [address] [id number] [address] [place] [address], [place] [address] Feb, [facility] [address] [id number] [address] [place] [address], [place] [address] Jan, [facility] [address] [id number] [address] [place] [address], [place] [address] Jan, [facility] [address] [id number] [address] [place] [address], [place] [address] Jan, [facility] [address] [id number] [address] [place] [address], [place] [address] Jan, [facility] [address] [id number] [address] [place] [address], [place] [address] Jan, [facility] [address] [id number] [address] [place] [address], [place] [address] Jan, [facility] [address] [id number] [address] [place] [address], [place] [address] Jan, [facility] [address] [id number] [address] [place] [address], [place] [address] Jan, [facility] [address] [id number] [address] [place] [address], [place] [address] Jan, [facility] [address] [id number] [address] [place] [address], [place] [address] Jan, [facility] [address] [id number] [address] [place] [address], [place] [address] Jan, [facility] [address] [id number] [address] [place] [address], [place] [address] Jan, [facility] [address] [id number] [address] [place] [address], [place] [address] Jan, [facility] [address] [id number] [address] [place] [address], [place] [address] Jan, [facility] [address] [id number] [address] [place] [address], [place] [address] Jan, [facility] [address] [id number] [address] [place] [address], [place] [address] Jan, [facility] [address] [id number] [address] [place] [address], [place] [address] Jan, [facility] [address] [id number] [address] [place] [address], [place] [address] December, [facility] [address] [id number] [address] [place] [address], [place] [address] December, [facility] [address] [id number] [address] [place] [address], [place] [address] December, [facility] [address] [id number] [address] [place] [address], [place] [address] December, [facility] [address] [id number] [address] [place] [address], [place] [address] December, [facility] [address] [id number] [address] [place] [address], [place] [address] December, [facility] [address] [id number] [address] [place] [address], [place] [address] Nov, [facility] [address] [id number] [address] [place] [address], [place] [address] Nov, [facility] [address] [id number] [address] [place] [address], [place] [address] Nov, [facility] [address] [id number] [address] [place] [address], [place] [address] Nov, [facility] [address] [id number] [address] [place] [address], [place] [address] Nov, [facility] [address] [id number] [address] [place] [address], [place] [address] Nov, [facility] [address] [id number] [address] [place] [address], [place] [address] Nov, [facility] [address] [id number] [address] [place] [address], [place] [address] Nov, [facility] [address] [id number] [address] [place] [address], [place] [address] Nov, [facility] [address] [id number] [address] [place] [address], [place] [address] Nov, [facility] [address] [id number] [address] [place] [address], [place] [address] Nov, [facility] [address] [id number] [address] [place] [address], [place] [address] Nov, [facility] [address] [id number] [address] [place] [address], [place] [address] Nov, [facility] [address] [id number] [address] [place] [address], [place] [address] Nov, [facility] [address] [id number] [address] [place] [address], [place] [address] Nov, [facility] [address] [id number] [address] [place] [address], [place] [address] Nov, [facility] [address] [id number] [address] [place] [address], [place] [id number] Oct, [facility] [address] [id number] [address] [place] [address], [place] [id number] Oct, [facility] [address] [id number] [address] [place] [address], [place] [address] Oct, [facility] [address] [id number] [address] [place] [address], [place] [id number] Oct, [facility] [address] [id number] [address] [place] [address], [place] [id number] Oct, [facility] [address] [id number] [address] [place] [address], [place] [id number] Oct, [facility] [address] [id number] [address] [place] [address], [place] [id number] Oct, [facility] [address] [id number] [address] [place] [address], [place] [id number] Oct, [facility] [address] [id number] [address] [place] [address], [place] [id number] Sep, [facility] [address] [id number] [address] [place] [address], [place] [address] Sep, [facility] [address] [id number] [address] [place] [address], [place] [id number] Sep, [facility] [address] [id number] [address] [place] [address], [place] [id number] Sep, [facility] [address] [id number] [address] [place] [address], [place] [address] Sep, [facility] [address] [id number] [address] [place] [address], [place] [address] Sep, [facility] [address] [id number] [address] [place] [address], [place] [id number] Aug, [facility] [address] [id number] [address] [place] [address], [place] [id number] Aug, [facility] [address] [id number] [address] [place] [address], [place] [address] Aug, [facility] [address] [id number] [address] [place] [address], [place] [address] Aug, [facility] [address] [id number] [address] [place] [address], [place] [id number] Aug, [facility] [address] [id number] [address] [place] [address], [place] [address] Aug, [facility] [address] [id number] [address] [place] [address], [place] [id number] Aug, [facility] [address] [id number] [address] [place] [address], [place] [address] Aug, [facility] [address] [id number] [address] [place] [address], [place] [address] Jul, [facility] [address] [id number] [address] [place] [address], [place] [address] Jul, [facility] [address] [id number] [address] [place] [address], [place] [id number] Jul, [facility] [address] [id number] [address] [place] [address], [place] [id number] Jul, [facility] [address] [id number] [address] [place] [address], [place] [id number] Jul, [facility] [address] [id number] [address] [place] [address], [place] [id number] Jul, [facility] [address] [id number] [address] [place] [address], [place] [id number] Jul, [facility] [address] [id number] [address] [place] [address], [place] [id number] Jul, [facility] [address] [id number] [address] [place] [address], [place] [address] Jul, [facility] [address] [id number] [address] [place] [address], [place] [id number] 14 Jun, 2013 [facility] [address] [id number] [address] [place] [address], [place] [id number] 14 Jun, 2013 [facility] [address] [id number] [address] [place] [address], [place] [id number] Jun, [facility] [address] [id number] [address] [place] [address], [place] [id number] Jun, [facility] [address] [id number] [address] [place] [address], [place] [address] Jun, [facility] [address] [id number] [address] [place] [address], [place] [id number] Jun, [facility] [address] [id number] [address] [place] [address], [place] [id number] 31 May, 2013 [facility] [address] [id number] [address] [place] [address], [place] [id number] 31 May, 2013 [facility] [address] [id number] [address] [place] [address], [place] [address] 17 May, 2013 [facility] [address] [id number] [address] [place] [address], [place] [address] 17 May, 2013 [facility] [address] [id number] [address] [place] [address], [place] [address] 14 May, 2013 [facility] [address] [id number] [address] [place] [address], [place] [id number] 14 May, 2013 [facility] [address] [id number] [address] [place] [address], [place] [address] 10 May, 2013 [facility] [address] [id number] [address] [place] [address], [place] [id number] 10 May, 2013 [facility] [address] [id number] [address] [place] [id number] 07 May, 2013 [facility] [address] [id number] [address] [place] [id number] 20 Sep, 2012 [facility] [address] [id number] [address] [place] [address], [place] [id number] 19 Sep, 2012 [facility] [address] [address] [id number] [address] [place] [address], [place] [id number] 12 Apr, 2012 [facility] [address] [id number] [address] [place] [address], [place] [id number] 24 Sep, 2011 [facility] [address] [id number] [address] [place] [address], [place] [id number] 21 Sep, 2011 [facility] [address] [id number] [address] [place] [address], [place] [id number] 21 Apr, 2011 [facility] [address] [id number] [address] [place] [address], [place] [id number] 14 Apr, 2011 [facility] [address] [id number] [address] [place] [address], [place] [address] 10 Apr, 2011 [facility] [address] [id number] [address] [place] [address], [place] [id number] 06 Apr, 2011 [facility] [address] [id number] [address] [place] [address], [place] [id number] 04 Apr, 2011 [facility] [address] [id number] [address] [place] [address], [place] [id number] 31 Mar, 2012 [facility] [address] [id number] [address] [place] [address], [place] [address] 28 Mar, 2012 [facility] [address] [id number] [address] [place] [address], [place] [id number] 27 Mar, 2012 [facility] [address] [id number] [address] [place] [address], [place] [id number] 10 Mar, 2012 [facility] [address] [id number] [address] [place] [address], [place] [id number] 08 Mar, 2012 [facility] [address] [id number] [address] [place] [address], [place] [id number] 03 Mar, 2012 [facility] [address] [id number] [address] [place] [address], [place] [address] Feb, [facility] [address] [id number] [address] [place] [address], [place] [id number] Feb, [facility] [address] [id number] [address] [place] [address], [place] [id number] Feb, [facility] [address] [id number] [address] [place] [address], [place] [address] Jan, [facility] [address] [id number] [address] [place] [address], [place] [address] Jan, [facility] [address] [id number] [address] [place] [address], [place] [id number] Jan, [facility] [address] [id number] [address] [place] [address], [place] [id number] Jan, [facility] [address] [id number] [address] [place] [address], [place] [id number] Jan, [facility] [address] [id number] [address] [place] [address], [place] [address] Jan, [facility] [address] [id number] [address] [place] [address], [place] [id number] Jan, [facility] [address] [id number] [address] [place] [address], [place] [id number] Jan, [facility] [address] [id number] [address] [place] [address], [place] [id number] December, [facility] [address] [id number] [address] [place] [address], [place] [id number] December, [facility] [address] [id number] [address] [place] [address], [place] [address] December, [facility] [address] [id number] [address] [place] [address], [place] [id number] December, [facility] [address] [id number] [address] [place] [address], [place] [id number] December, [facility] [address] [id number] [address] [place] [address], [place] [id number] December, [facility] [address] [id number] [address] [place] [address], [place] [id number] 13 Nov, 2011 [facility] [address] [id number] [address] [place] [address], [place] [id number] 13 Nov, 2011 [facility] [address] [id number] [address] [place] [address], [place] [address] Nov, [facility] [address] [id number] [address] [place] [address], [place] [address] Nov, [facility] [address] [id number] [address] [place] [address], [place] [id number] Nov, [facility] [address] [id number] [address] [place] [address], [place] [id number] Oct, [facility] [address] [id number] [address] [place] [address], [place] [id number] 17 Sep, 2011 [facility] [address] [id number] [address] [place] [address], [place] [id number] Aug, [facility] [address] [id number] [address] [place] [address], [place] [address] Aug, [facility] [address] [id number] [address] [place] [address], [place] [id number] Aug, [facility] [address] [id number] [address] [place] [address], [place] [id number] Aug, [facility] [address] [id number] [address] [place] [address], [place] [id number] Aug, [facility] [address] [id number] [address] [place] [address], [place] [address] Jul, [facility] [address] [id number] [address] [place] [address], [place] [address] Jul, [facility] [address] [id number] [address] [place] [address], [place] [address] Jun, [facility] [address] [id number] [address] [place] [address], [place] [address] Jun, [facility] [address] [id number] [address] [place] [address], [place] [address] Jun, [facility] [address] [id number] [address] [place] [address], [place] [address] May, [facility] [address] [id number] [address] [place] [address], [place] [address] May, [facility] [address] [id number] [address] [place] [address], [place] [id number] 16 Oct, 2010 [facility] [address] [id number] [address] [place] [address], [place] [address] Oct, [facility] [address] [id number] [address] [place] [address], [place] [address] 29 Jul, 2010 [facility] [address] [id number] [address] [place] [address], [place] [id number] 08 Jul, 2010 [facility] [address] [id number] [address] [place] [address], [place] [address] Jul, [facility] [address] [id number] [address] [place] [address], [place] [address] Jul, [facility] [address] [id number] [address] [place] [address], [place] [address] Jul, [facility] [address] [id number] [address] [place] [address], [place] [address] Jun, [facility] [address] [id number] [address] [place] [address], [place] [address] Jun, [facility] [address] [id number] [address] [place] [address], [place] [address] Jun, [facility] [address] [id number] [address] [place] [address], [place] [id number] May, [facility] [address] [facility] [id number] [address] [place] [address] 16 Mar, 2010 IMMUNIZATIONS No Known Immunizations SOCIAL HISTORY Never Assessed REASON FOR VISIT PLAN OF CARE VITAL SIGNS Height 60 in 2013-07-25 Weight 223.6 lbs 2013-07-25 Temperature 96.8 degrees Fahrenheit 2013-07-25 Heart Rate 84 bpm 2013-07-25 Respiratory Rate 22 2013-07-25 Blood pressure systolic 146 mmHg 2013-07-25 Blood pressure diastolic 82 mmHg 2013-07-25 MEDICATIONS Unknown Medications RESULTS No Results PROCEDURES Procedure Date Ordered Result Body Site MEASURE BLOOD OXYGEN LEVEL Jul 25, 2013 INSTRUCTIONS MEDICATIONS ADMINISTERED No Known Medications MEDICAL (GENERAL) HISTORY Type Description Date Medical History Hypertension Medical History Chronic obstructive pulmonary disease Medical History Type 2 diabetes mellitus Medical History Psychiatric disorders depression Surgical History Hysterectomy total abdominal 1996 Surgical History Orthopedic Surgery Surgical History Scleral buckle Hospitalization History No Hospitalization history informati on
--- OUTSIDE RECORDS SUMMARY | 2020-03-12 09:31 | XMS REPORT ---
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 Name Role Phone LAURIE LYLE Unavailable PROBLEMS Type Condition ICD9-CM Code XOK30-LQ Code Onset Dates Condition S tatus SNOMED Code Problem COPD (chronic obstructive pulmonary disease) J44.9 Active 70347990 Problem Diabetes E11.9 Active 28264752 Problem Diabetic neuropathy E11.40 Active 485936619 Problem Arthritis M19.90 Active 2312722 ALLERGIES No Information ENCOUNTERS Encounter Location Date Diagnosis [facility] [address] [facility] [id number] [address] [place] [address] December, [facility] [address] [id number] [address] [place] [address] Aug, Arthritis M19.90 [facility] [address] [facility] [id number] [address] [place] [address] Jul, [facility] [address] [facility] [id number] [address] [place] [address] Jul, [facility] [address] [facility] [id number] [address] [place] [address] Jul, [facility] [address] [id number] [address] [place] [address] Jul, [facility] [address] [facility] [id number] [address] [place] [address] Jul, Diabetes E11.9 ; Diabetic ne uropathy E11.40 ; Arthritis M19.90 and COPD (chronic obstructive pulmonary disease) J44.9 [facility] [address] [facility] [id number] [address] [place] [address] Jul, [facility] [address] [id number] [address] [place] [address], [place] [address] 23 Jun, 2015 [facility] [address] [id number] [address] [place] [address], [place] [address] 23 Jun, 2015 [facility] [address] [id number] [address] [place] [address], [place] [address] 17 Jun, 2014 [facility] [address] [id number] [address] [place] [address], [place] [address] 10 Jun, 2014 [facility] [address] [id number] [address] [place] [address], [place] [address] 15 May, 2015 [facility] [address] [id number] [address] [place] [address], [place] [address] 13 May, 2015 [facility] [address] [id number] [address] [place] [address], [place] [address] 07 May, 2015 [facility] [address] [id number] [address] [place] [address], [place] [address] 22 Sep, 2014 [facility] [address] [id number] [address] [place] [address], [place] [address] 21 Sep, 2014 [facility] [address] [id number] [address] [place] [address], [place] [address] 21 Sep, 2014 [facility] [address] [id number] [address] [place] [address], [place] [address] 15 Sep, 2014 [facility] [address] [id number] [address] [place] [address], [place] [address] 11 Sep, 2014 [facility] [address] [id number] [address] [place] [address], [place] [address] 09 Sep, 2014 [facility] [address] [id number] [address] [place] [address], [place] [address] 08 Sep, 2014 [facility] [address] [id number] [address] [place] [address], [place] [address] 03 Sep, 2014 [facility] [address] [id number] [address] [place] [address] [address] Apr, [facility] [address] [facility] [id number] [address] [place] [address] Mar, [facility] [address] [facility] [id number] [address] [place] [address] Mar, [facility] [address] [facility] [id number] [address] [place] [address] Mar, [facility] [address] [facility] [id number] [address] [place] [address] Mar, [facility] [address] [facility] [id number] [address] [place] [address] Mar, [facility] [address] [facility] [id number] [address] [place] [address] Mar, Diabetes mellitus 250.00 ; C OPD (chronic obstructive pulmonary disease) 496 ; Anxiety 300.00 and Arthritis 716.90 [facility] [address] [facility] [id number] [address] [place] [address] Feb, [facility] [address] [facility] [id number] [address] [place] [address] Feb, [facility] [address] [facility] [id number] [address] [place] [address] Feb, [facility] [address] [facility] [id number] [address] [place] [address] Feb, [facility] [address] [facility] [id number] [address] [place] [address] Jan, Seborrheic keratosis 702.19 and Nevus 216.9 [facility] [address] [facility] [id number] [address] [place] [address] Jan, [facility] [address] [facility] [id number] [address] [place] [address] Jan, Routine gynecological examin ation V72.31 ; Breast cancer screening V76.10 ; Hot flashes 627.2 ; Atypical nevi 216.9 and Constipation 564.00 [facility] [address] [id number] [address] [place] [address], [place] [address] Jan, [facility] [address] [id number] [address] [place] [address], [place] [address] December, [facility] [address] [id number] [address] [place] [address], [place] [address] December, [facility] [address] [id number] [address] [place] [address], [place] [address] Nov, [facility] [address] [id number] [address] [place] [address], [place] [address] Nov, [facility] [address] [id number] [address] [place] [address], [place] [address] Oct, [facility] [address] [id number] [address] [place] [address], [place] [address] 23 Oct, 2014 [facility] [address] [id number] [address] [place] [address], [place] [address] 18 Oct, 2014 [facility] [address] [id number] [address] [place] [address], [place] [address] 18 Oct, 2014 [facility] [address] [id number] [address] [place] [address], [place] [address] 17 Oct, 2014 [facility] [address] [id number] [address] [place] [address], [place] [address] 17 Oct, 2014 [facility] [address] [id number] [address] [place] [address] 16 Oct, 2014 [facility] [address] [id number] [address] [place] [address], [place] [address] 16 Oct, 2014 [facility] [address] [id number] [address] [place] [address], [place] [address] 11 Oct, 2014 [facility] [address] [id number] [address] [place] [address], [place] [address] 11 Oct, 2014 [facility] [address] [id number] [address] [place] [address], [place] [address] Sep, 2014 [facility] [address] [id number] [address] [place] [address], [place] [address] Sep, 2014 [facility] [address] [id number] [address] [place] [address], [place] [address] 19 Sep, 2014 [facility] [address] [id number] [address] [place] [address], [place] [address] 18 Sep, 2014 [facility] [address] [id number] [address] [place] [address], [place] [address] Sep, 2014 [facility] [address] [id number] [address] [place] [address], [place] [address] Sep, 2014 [facility] [address] [id number] [address] [place] [address], [place] [address] Sep, 2014 [facility] [address] [id number] [address] [place] [address], [place] [address] Aug, [facility] [address] [id number] [address] [place] [address], [place] [address] Aug, [facility] [address] [id number] [address] [place] [address], [place] [address] Aug, [facility] [address] [id number] [address] [place] [address], [place] [address] Aug, [facility] [address] [id number] [address] [place] [address], [place] [address] Aug, [facility] [address] [id number] [address] [place] [address], [place] [address] Aug, [facility] [address] [id number] [address] [place] [address], [place] [address] Jul, [facility] [address] [id number] [address] [place] [address], [place] [address] Jul, [facility] [address] [id number] [address] [place] [address], [place] [address] Jul, [facility] [address] [id number] [address] [place] [address], [place] [address] Jul, [facility] [address] [id number] [address] [place] [address], [place] [address] Jul, [facility] [address] [id number] [address] [place] [address], [place] [address] Jun, [facility] [address] [id number] [address] [place] [address], [place] [address] Jun, [facility] [address] [id number] [address] [place] [address], [place] [address] Jun, [facility] [address] [id number] [address] [place] [address], [place] [address] Jun, [facility] [address] [id number] [address] [place] [address], [place] [address] Jun, [facility] [address] [id number] [address] [place] [address], [place] [address] Jun, [facility] [address] [id number] [address] [place] [address], [place] [address] May, [facility] [address] [id number] [address] [place] [address], [place] [address] May, [facility] [address] [id number] [address] [place] [address], [place] [address] May, [facility] [address] [id number] [address] [place] [address] May, [facility] [address] [id number] [address] [place] [address], [place] [address] May, [facility] [address] [id number] [address] [place] [address], [place] [address] May, [facility] [address] [id number] [address] [place] [address], [place] [address] May, [facility] [address] [id number] [address] [place] [address], [place] [address] May, [facility] [address] [id number] [address] [place] [address], [place] [address] May, [facility] [address] [id number] [address] [place] [address], [place] [address] Apr, [facility] [address] [id number] [address] [place] [address], [place] [address] Apr, [facility] [address] [id number] [address] [place] [address], [place] [address] Apr, [facility] [address] [id number] [address] [place] [address], [place] [address] Apr, [facility] [address] [id number] [address] [place] [address], [place] [address] Mar, [facility] [address] [id number] [address] [place] [address], [place] [address] Mar, [facility] [address] [id number] [address] [place] [address], [place] [address] Mar, [facility] [address] [id number] [address] [place] [address], [place] [address] Mar, [facility] [address] [id number] [address] [place] [address], [place] [address] Mar, [facility] [address] [id number] [address] [place] [address], [place] [address] Mar, [facility] [address] [id number] [address] [place] [address], [place] [address] Feb, [facility] [address] [id number] [address] [place] [address], [place] [address] Feb, [facility] [address] [id number] [address] [place] [address], [place] [address] Feb, [facility] [address] [id number] [address] [place] [address], [place] [address] Feb, [facility] [address] [id number] [facility] [address] Feb, 2013 [facility] [address] [id number] [facility] [address] Feb, [facility] [address] [id number] [address] [place] [address], [place] [address] Feb, 2013 [facility] [address] [id number] [address] [place] [address], [place] [address] Feb, 2013 [facility] [address] [id number] [address] [place] [address], [place] [address] Feb, 2013 [facility] [address] [id number] [address] [place] [address], [place] [address] Feb, [facility] [address] [id number] [address] [place] [address], [place] [address] Feb, [facility] [address] [id number] [address] [place] [address], [place] [address] Feb, [facility] [address] [id number] [address] [place] [address], [place] [address] Jan, [facility] [address] [id number] [address] [place] [address], [place] [address] Jan, [facility] [address] [id number] [address] [place] [address], [place] [address] Jan, [facility] [address] [id number] [address] [place] [address], [place] [address] Jan, [facility] [address] [id number] [address] [place] [address], [place] [address] Jan, [facility] [address] [id number] [address] [place] [address], [place] [address] Jan, [facility] [address] [id number] [address] [place] [address], [place] [address] Jan, [facility] [address] [id number] [address] [place] [address], [place] [address] Jan, [facility] [address] [id number] [address] [place] [address], [place] [address] Jan, [facility] [address] [id number] [address] [place] [address], [place] [address] Jan, [facility] [address] [id number] [address] [place] [address], [place] [address] Jan, [facility] [address] [id number] [address] [place] [address], [place] [address] Jan, [facility] [address] [id number] [address] [place] [address], [place] [address] Jan, [facility] [address] [id number] [address] [place] [address], [place] [address] Jan, [facility] [address] [id number] [address] [place] [address], [place] [address] Jan, [facility] [address] [id number] [address] [place] [address], [place] [address] Jan, [facility] [address] [id number] [address] [place] [address], [place] [address] Jan, [facility] [address] [id number] [address] [place] [address], [place] [address] December, [facility] [address] [id number] [address] [place] [address], [place] [address] December, [facility] [address] [id number] [address] [place] [address], [place] [address] December, [facility] [address] [id number] [address] [place] [address], [place] [address] December, [facility] [address] [id number] [address] [place] [address], [place] [address] December, [facility] [address] [id number] [address] [place] [address], [place] [address] December, [facility] [address] [id number] [address] [place] [address], [place] [address] Nov, [facility] [address] [id number] [address] [place] [address], [place] [address] Nov, [facility] [address] [id number] [address] [place] [address], [place] [address] Nov, [facility] [address] [id number] [address] [place] [address], [place] [address] Nov, [facility] [address] [id number] [address] [place] [address], [place] [address] Nov, [facility] [address] [id number] [address] [place] [address], [place] [address] Nov, [facility] [address] [id number] [address] [place] [address], [place] [address] Nov, [facility] [address] [id number] [address] [place] [address], [place] [address] Nov, [facility] [address] [id number] [address] [place] [address], [place] [address] Nov, [facility] [address] [id number] [address] [place] [address], [place] [address] Nov, [facility] [address] [id number] [address] [place] [address], [place] [address] Nov, [facility] [address] [id number] [address] [place] [address], [place] [address] Nov, [facility] [address] [id number] [address] [place] [address], [place] [address] Nov, [facility] [address] [id number] [address] [place] [address], [place] [address] Nov, [facility] [address] [id number] [address] [place] [address], [place] [address] Nov, [facility] [address] [id number] [address] [place] [address], [place] [address] Nov, [facility] [address] [id number] [address] [place] [address], [place] [address] Oct, [facility] [address] [id number] [address] [place] [address], [place] [address] Oct, [facility] [address] [id number] [address] [place] [address], [place] [address] Oct, [facility] [address] [id number] [address] [place] [address], [place] [address] Oct, [facility] [address] [id number] [address] [place] [address], [place] [address] Oct, [facility] [address] [id number] [address] [place] [address], [place] [address] Oct, [facility] [address] [id number] [address] [place] [address], [place] [address] Oct, [facility] [address] [id number] [address] [place] [address], [place] [address] Oct, [facility] [address] [id number] [address] [place] [address], [place] [address] Sep, [facility] [address] [id number] [address] [place] [address], [place] [address] Sep, [facility] [address] [id number] [address] [place] [address], [place] [address] Sep, [facility] [address] [id number] [address] [place] [address], [place] [address] Sep, [facility] [address] [id number] [address] [place] [address], [place] [address] Sep, [facility] [address] [id number] [address] [place] [address], [place] [address] Sep, [facility] [address] [id number] [address] [place] [address], [place] [address] Aug, [facility] [address] [id number] [address] [place] [address], [place] [address] Aug, [facility] [address] [id number] [address] [place] [address], [place] [address] Aug, [facility] [address] [id number] [address] [place] [address], [place] [address] Aug, [facility] [address] [id number] [address] [place] [address], [place] [address] Aug, [facility] [address] [id number] [address] [place] [address], [place] [address] Aug, [facility] [address] [id number] [address] [place] [address], [place] [address] Aug, [facility] [address] [id number] [address] [place] [address], [place] [address] Aug, [facility] [address] [id number] [address] [place] [address], [place] [address] Jul, [facility] [address] [id number] [address] [place] [address], [place] [address] Jul, [facility] [address] [id number] [address] [place] [address], [place] [address] Jul, [facility] [address] [id number] [address] [place] [address], [place] [address] Jul, [facility] [address] [id number] [address] [place] [address], [place] [address] Jul, [facility] [address] [id number] [address] [place] [address], [place] [address] Jul, [facility] [address] [id number] [address] [place] [address], [place] [address] Jul, [facility] [address] [id number] [address] [place] [address], [place] [address] Jul, [facility] [address] [id number] [address] [place] [address], [place] [address] Jul, [facility] [address] [id number] [address] [place] [address], [place] [address] 14 Jun, 2013 [facility] [address] [id number] [address] [place] [address], [place] [address] 14 Jun, 2013 [facility] [address] [id number] [address] [place] [address], [place] [address] Jun, [facility] [address] [id number] [address] [place] [address], [place] [address] Jun, [facility] [address] [id number] [address] [place] [address], [place] [address] Jun, [facility] [address] [id number] [address] [place] [address], [place] [address] Jun, [facility] [address] [id number] [address] [place] [address], [place] [address] 31 May, 2013 [facility] [address] [id number] [address] [place] [address], [place] [address] 31 May, 2013 [facility] [address] [id number] [address] [place] [address], [place] [address] 17 May, 2013 [facility] [address] [id number] [address] [place] [address], [place] [address] 17 May, 2013 [facility] [address] [id number] [address] [place] [address], [place] [address] 14 May, 2013 [facility] [address] [id number] [address] [place] [address], [place] [address] 14 May, 2013 [facility] [address] [id number] [address] [place] [address], [place] [address] 10 May, 2013 [facility] [address] [id number] [address] [place] [address], [place] [address] 10 May, 2013 [facility] [address] [id number] [address] [place] [address] 07 May, 2013 [facility] [address] [id number] [address] [place] [address] 20 Sep, 2012 [facility] [address] [id number] [address] [place] [address], [place] [address] 19 Sep, 2012 [facility] [address] [id number] [address] [place] [address], [place] [address] 12 Apr, 2012 [facility] [address] [id number] [address] [place] [address], [place] [address] 24 Sep, 2011 [facility] [address] [id number] [address] [place] [address], [place] [address] 21 Sep, 2011 [facility] [address] [id number] [address] [place] [address], [place] [address] 21 Apr, 2011 [facility] [address] [id number] [address] [place] [address], [place] [address] 14 Apr, 2011 [facility] [address] [id number] [address] [place] [address], [place] [address] 10 Apr, 2011 [facility] [address] [id number] [address] [place] [address], [place] [address] 06 Apr, 2011 [facility] [address] [id number] [address] [place] [address], [place] [address] 04 Apr, 2011 [facility] [address] [id number] [address] [place] [address], [place] [address] 31 Mar, 2012 [facility] [address] [id number] [address] [place] [address], [place] [address] 28 Mar, 2012 [facility] [address] [id number] [address] [place] [address], [place] [address] 27 Mar, 2012 [facility] [address] [id number] [address] [place] [address], [place] [address] 10 Mar, 2012 [facility] [address] [id number] [address] [place] [address], [place] [address] 08 Mar, 2012 [facility] [address] [id number] [address] [place] [address], [place] [address] 03 Mar, 2012 [facility] [address] [id number] [address] [place] [address], [place] [address] Feb, [facility] [address] [id number] [address] [place] [address], [place] [address] Feb, [facility] [address] [id number] [address] [place] [address], [place] [address] Feb, [facility] [address] [id number] [address] [place] [address], [place] [address] Jan, [facility] [address] [id number] [address] [place] [address], [place] [address] Jan, [facility] [address] [id number] [address] [place] [address], [place] [address] Jan, [facility] [address] [id number] [address] [place] [address], [place] [address] Jan, [facility] [address] [id number] [address] [place] [address], [place] [address] Jan, [facility] [address] [id number] [address] [place] [address], [place] [address] Jan, [facility] [address] [id number] [address] [place] [address], [place] [address] Jan, [facility] [address] [id number] [address] [place] [address], [place] [address] Jan, [facility] [address] [id number] [address] [place] [address], [place] [address] December, [facility] [address] [id number] [address] [place] [address], [place] [address] December, [facility] [address] [id number] [address] [place] [address], [place] [address] December, [facility] [address] [id number] [address] [place] [address], [place] [address] December, [facility] [address] [id number] [address] [place] [address], [place] [address] December, [facility] [address] [id number] [address] [place] [address], [place] [address] December, [facility] [address] [id number] [address] [place] [address], [place] [address] 13 Nov, 2011 [facility] [address] [id number] [address] [place] [address], [place] [address] 13 Nov, 2011 [facility] [address] [id number] [address] [place] [address], [place] [address] Nov, [facility] [address] [id number] [address] [place] [address], [place] [address] Nov, [facility] [address] [id number] [address] [place] [address], [place] [address] Nov, [facility] [address] [id number] [address] [place] [address], [place] [address] Oct, [facility] [address] [id number] [address] [place] [address], [place] [address] 17 Sep, 2011 [facility] [address] [id number] [address] [place] [address], [place] [address] Aug, [facility] [address] [id number] [address] [place] [address], [place] [address] Aug, [facility] [address] [id number] [address] [place] [address], [place] [address] Aug, [facility] [address] [id number] [address] [place] [address], [place] [address] Aug, [facility] [address] [id number] [address] [place] [address], [place] [address] Aug, [facility] [address] [id number] [address] [place] [address], [place] [address] Jul, [facility] [address] [id number] [address] [place] [address], [place] [address] Jul, [facility] [address] [id number] [address] [place] [address], [place] [address] Jun, [facility] [address] [id number] [address] [place] [address], [place] [address] Jun, [facility] [address] [id number] [address] [place] [address], [place] [address] Jun, [facility] [address] [id number] [address] [place] [address], [place] [address] May, [facility] [address] [id number] [address] [place] [address], [place] [address] May, [facility] [address] [id number] [address] [place] [address], [place] [address] 16 Oct, 2010 [facility] [address] [id number] [address] [place] [address], [place] [address] Oct, [facility] [address] [id number] [address] [place] [address], [place] [address] 29 Jul, 2010 [facility] [address] [id number] [address] [place] [address], [place] [address] 08 Jul, 2010 [facility] [address] [id number] [address] [place] [address], [place] [address] Jul, [facility] [address] [id number] [address] [place] [address], [place] [address] Jul, [facility] [address] [id number] [address] [place] [address], [place] [address] Jul, [facility] [address] [id number] [address] [place] [address], [place] [address] Jun, [facility] [address] [id number] [address] [place] [address], [place] [address] Jun, [facility] [address] [id number] [address] [place] [address], [place] [address] Jun, [facility] [address] [id number] [address] [place] [address], [place] [address] May, [facility] [address] [facility] [id number] [address] [place] [address] 16 Mar, 2010 IMMUNIZATIONS No Known Immunizations [...]
[2020-03-12 09:32] LABS: ALANINE AMINOTRANSFERASE 25 U/L (0-55)
--- OUTSIDE RECORDS SUMMARY | 2020-03-12 09:32 | XMS REPORT ---
Author Author Caren LYLE Organization [facility] Address [address] [place] [address] Care Team Providers Care Director Search Name Role Phone LAURIE LYLE Unavailable PROBLEMS Type Condition ICD9-CM Code HAD68-OT Code Onset Dates Condition S tatus SNOMED Code Problem COPD (chronic obstructive pulmonary disease) J44.9 Active 79311416 Problem Diabetes E11.9 Active 60442958 Problem Diabetic neuropathy E11.40 Active 064192519 Problem Arthritis M19.90 Active 8655370 ALLERGIES No Information ENCOUNTERS Encounter Location Date Diagnosis [facility] [address] [facility] [id number] [address] [place] [address] December, [facility] [address] [id number] [address] [place] [address] Aug, Arthritis M19.90 [facility] [address] [facility] [id number] [address] [place] [address] Jul, [facility] [address] [facility] [id number] [address] [place] [address] Jul, [facility] [address] [facility] [id number] [address] [place] [address] Jul, [facility] [address] [id number] [address] [place] [address] Jul, [facility] [address] [facility] [id number] [address] [place] [address] Jul, Diabetes E11.9 ; Diabetic ne uropathy E11.40 ; Arthritis M19.90 and COPD (chronic obstructive pulmonary disease) J44.9 [facility] [address] [facility] [id number] [address] [place] [address] Jul, [facility] [address] [id number] [address] [place] [address], [place] [address] 23 Jun, 2015 [facility] [address] [id number] [address] [place] [address], [place] [address] 23 Jun, 2015 [facility] [address] [id number] [address] [place] [address], [place] [address] 17 Jun, 2014 [facility] [address] [id number] [address] [place] [address], [place] [address] 10 Jun, 2014 [facility] [address] [id number] [address] [place] [address], [place] [address] 15 May, 2015 [facility] [address] [id number] [address] [place] [address], [place] [address] 13 May, 2015 [facility] [address] [id number] [address] [place] [address], [place] [address] 07 May, 2015 [facility] [address] [id number] [address] [place] [address], [place] [address] 22 Sep, 2014 [facility] [address] [id number] [address] [place] [address], [place] [address] 21 Sep, 2014 [facility] [address] [id number] [address] [place] [address], [place] [address] 21 Sep, 2014 [facility] [address] [id number] [address] [place] [address], [place] [address] 15 Sep, 2014 [facility] [address] [id number] [address] [place] [address], [place] [address] 11 Sep, 2014 [facility] [address] [id number] [address] [place] [address], [place] [address] 09 Sep, 2014 [facility] [address] [id number] [address] [place] [address], [place] [address] 08 Sep, 2014 [facility] [address] [id number] [address] [place] [address], [place] [address] 03 Sep, 2014 [facility] [address] [id number] [address] [place] [address] [address] Apr, [facility] [address] [facility] [id number] [address] [place] [address] Mar, [facility] [address] [facility] [id number] [address] [place] [address] Mar, [facility] [address] [facility] [id number] [address] [place] [address] Mar, [facility] [address] [facility] [id number] [address] [place] [address] Mar, [facility] [address] [facility] [id number] [address] [place] [address] Mar, [facility] [address] [facility] [id number] [address] [place] [address] Mar, Diabetes mellitus 250.00 ; C OPD (chronic obstructive pulmonary disease) 496 ; Anxiety 300.00 and Arthritis 716.90 [facility] [address] [facility] [id number] [address] [place] [address] Feb, [facility] [address] [facility] [id number] [address] [place] [address] Feb, [facility] [address] [facility] [id number] [address] [place] [address] Feb, [facility] [address] [facility] [id number] [address] [place] [address] Feb, [facility] [address] [facility] [id number] [address] [place] [address] Jan, Seborrheic keratosis 702.19 and Nevus 216.9 [facility] [address] [facility] [id number] [address] [place] [address] Jan, [facility] [address] [facility] [id number] [address] [place] [address] Jan, Routine gynecological examin ation V72.31 ; Breast cancer screening V76.10 ; Hot flashes 627.2 ; Atypical nevi 216.9 and Constipation 564.00 [facility] [address] [id number] [address] [place] [address], [place] [address] Jan, [facility] [address] [id number] [address] [place] [address], [place] [address] December, [facility] [address] [id number] [address] [place] [address], [place] [address] December, [facility] [address] [id number] [address] [place] [address], [place] [address] Nov, [facility] [address] [id number] [address] [place] [address], [place] [address] Nov, [facility] [address] [id number] [address] [place] [address], [place] [address] Oct, [facility] [address] [id number] [address] [place] [address], [place] [address] 23 Oct, 2014 [facility] [address] [id number] [address] [place] [address], [place] [address] 18 Oct, 2014 [facility] [address] [id number] [address] [place] [address], [place] [address] 18 Oct, 2014 [facility] [address] [id number] [address] [place] [address], [place] [address] 17 Oct, 2014 [facility] [address] [id number] [address] [place] [address], [place] [address] 17 Oct, 2014 [facility] [address] [id number] [address] [place] [address] 16 Oct, 2014 [facility] [address] [id number] [address] [place] [address], [place] [address] 16 Oct, 2014 [facility] [address] [id number] [address] [place] [address], [place] [address] 11 Oct, 2014 [facility] [address] [id number] [address] [place] [address], [place] [address] 11 Oct, 2014 [facility] [address] [id number] [address] [place] [address], [place] [address] Sep, [address] [facility] [address] [id number] [address] [place] [address], [place] [address] Sep, 2014 [facility] [address] [id number] [address] [place] [address], [place] [address] 19 Sep, [address] [facility] [address] [id number] [address] [place] [address], [place] [address] 18 Sep, 2014 [facility] [address] [id number] [address] [place] [address], [place] [address] Sep, 2014 [facility] [address] [id number] [address] [place] [address], [place] [address] Sep, [address] [facility] [address] [id number] [address] [place] [address], [place] [address] Sep, [address] [facility] [address] [id number] [address] [place] [address], [place] [address] Aug, [facility] [address] [id number] [address] [place] [address], [place] [address] Aug, [facility] [address] [id number] [address] [place] [address], [place] [address] Aug, [facility] [address] [id number] [address] [place] [address], [place] [address] Aug, [facility] [address] [id number] [address] [place] [address], [place] [address] Aug, [facility] [address] [id number] [address] [place] [address], [place] [address] Aug, [facility] [address] [id number] [address] [place] [address], [place] [address] Jul, [facility] [address] [id number] [address] [place] [address], [place] [address] Jul, [facility] [address] [id number] [address] [place] [address], [place] [address] Jul, [facility] [address] [id number] [address] [place] [address], [place] [address] Jul, [facility] [address] [id number] [address] [place] [address], [place] [address] Jul, [facility] [address] [id number] [address] [place] [address], [place] [address] Jun, [facility] [address] [id number] [address] [place] [address], [place] [address] Jun, [facility] [address] [id number] [address] [place] [address], [place] [address] Jun, [facility] [address] [id number] [address] [place] [address], [place] [address] Jun, [facility] [address] [id number] [address] [place] [address], [place] [address] Jun, [facility] [address] [id number] [address] [place] [address], [place] [address] Jun, [facility] [address] [id number] [address] [place] [address], [place] [address] May, [facility] [address] [id number] [address] [place] [address], [place] [address] May, [facility] [address] [id number] [address] [place] [address], [place] [address] May, [facility] [address] [id number] [address] [place] [address] May, [facility] [address] [id number] [address] [place] [address], [place] [address] May, [facility] [address] [id number] [address] [place] [address], [place] [address] May, [facility] [address] [id number] [address] [place] [address], [place] [address] May, [facility] [address] [id number] [address] [place] [address], [place] [address] May, [facility] [address] [id number] [address] [place] [address], [place] [address] May, [facility] [address] [id number] [address] [place] [address], [place] [address] Apr, [facility] [address] [id number] [address] [place] [address], [place] [address] Apr, [facility] [address] [id number] [address] [place] [address], [place] [address] Apr, [facility] [address] [id number] [address] [place] [address], [place] [address] Apr, [facility] [address] [id number] [address] [place] [address], [place] [address] Mar, [facility] [address] [id number] [address] [place] [address], [place] [address] Mar, [facility] [address] [id number] [address] [place] [address], [place] [address] Mar, [facility] [address] [id number] [address] [place] [address], [place] [address] Mar, [facility] [address] [id number] [address] [place] [address], [place] [address] Mar, [facility] [address] [id number] [address] [place] [address], [place] [address] Mar, [facility] [address] [id number] [address] [place] [address], [place] [address] Feb, [facility] [address] [id number] [address] [place] [address], [place] [address] Feb, [facility] [address] [id number] [address] [place] [address], [place] [address] Feb, [facility] [address] [id number] [address] [place] [address], [place] [address] Feb, [facility] [address] [id number] [facility] [place] [address] Feb, 2013 [facility] [address] [id number] [facility] [place] [address] Feb, [facility] [address] [id number] [address] [place] [address], [place] [address] Feb, 2013 [facility] [address] [id number] [address] [place] [address], [place] [address] Feb, 2013 [facility] [address] [id number] [address] [place] [address], [place] [address] Feb, 2013 [facility] [address] [id number] [address] [place] [address], [place] [address] Feb, [facility] [address] [id number] [address] [place] [address], [place] [address] Feb, [facility] [address] [id number] [address] [place] [address], [place] [address] Feb, [facility] [address] [id number] [address] [place] [address], [place] [address] Jan, [facility] [address] [id number] [address] [place] [address], [place] [address] Jan, [facility] [address] [id number] [address] [place] [address], [place] [address] Jan, [facility] [address] [id number] [address] [place] [address], [place] [address] Jan, [facility] [address] [id number] [address] [place] [address], [place] [address] Jan, [facility] [address] [id number] [address] [place] [address], [place] [address] Jan, [facility] [address] [id number] [address] [place] [address], [place] [address] Jan, [facility] [address] [id number] [address] [place] [address], [place] [address] Jan, [facility] [address] [id number] [address] [place] [address], [place] [address] Jan, [facility] [address] [id number] [address] [place] [address], [place] [address] Jan, [facility] [address] [id number] [address] [place] [address], [place] [address] Jan, [facility] [address] [id number] [address] [place] [address], [place] [address] Jan, [facility] [address] [id number] [address] [place] [address], [place] [address] Jan, [facility] [address] [id number] [address] [place] [address], [place] [address] Jan, [facility] [address] [id number] [address] [place] [address], [place] [address] Jan, [facility] [address] [id number] [address] [place] [address], [place] [address] Jan, [facility] [address] [id number] [address] [place] [address], [place] [address] Jan, [facility] [address] [id number] [address] [place] [address], [place] [address] December, [facility] [address] [id number] [address] [place] [address], [place] [address] December, [facility] [address] [id number] [address] [place] [address], [place] [address] December, [facility] [address] [id number] [address] [place] [address], [place] [address] December, [facility] [address] [id number] [address] [place] [address], [place] [address] December, [facility] [address] [id number] [address] [place] [address], [place] [address] December, [facility] [address] [id number] [address] [place] [address], [place] [address] Nov, [facility] [address] [id number] [address] [place] [address], [place] [address] Nov, [facility] [address] [id number] [address] [place] [address], [place] [address] Nov, [facility] [address] [id number] [address] [place] [address], [place] [address] Nov, [facility] [address] [id number] [address] [place] [address], [place] [address] Nov, [facility] [address] [id number] [address] [place] [address], [place] [address] Nov, [facility] [address] [id number] [address] [place] [address], [place] [address] Nov, [facility] [address] [id number] [address] [place] [address], [place] [address] Nov, [facility] [address] [id number] [address] [place] [address], [place] [address] Nov, [facility] [address] [id number] [address] [place] [address], [place] [address] Nov, [facility] [address] [id number] [address] [place] [address], [place] [address] Nov, [facility] [address] [id number] [address] [place] [address], [place] [address] Nov, [facility] [address] [id number] [address] [place] [address], [place] [address] Nov, [facility] [address] [id number] [address] [place] [address], [place] [address] Nov, [facility] [address] [id number] [address] [place] [address], [place] [address] Nov, [facility] [address] [id number] [address] [place] [address], [place] [address] Nov, [facility] [address] [id number] [address] [place] [address], [place] [address] Oct, [facility] [address] [id number] [address] [place] [address], [place] [address] Oct, [facility] [address] [id number] [address] [place] [address], [place] [address] Oct, [facility] [address] [id number] [address] [place] [address], [place] [address] Oct, [facility] [address] [id number] [address] [place] [address], [place] [address] Oct, [facility] [address] [id number] [address] [place] [address], [place] [address] Oct, [facility] [address] [id number] [address] [place] [address], [place] [address] Oct, [facility] [address] [id number] [address] [place] [address], [place] [address] Oct, [facility] [address] [id number] [address] [place] [address], [place] [address] Sep, [facility] [address] [id number] [address] [place] [address], [place] [address] Sep, [facility] [address] [id number] [address] [place] [address], [place] [address] Sep, [facility] [address] [id number] [address] [place] [address], [place] [address] Sep, [facility] [address] [id number] [address] [place] [address], [place] [address] Sep, [facility] [address] [id number] [address] [place] [address], [place] [address] Sep, [facility] [address] [id number] [address] [place] [address], [place] [address] Aug, [facility] [address] [id number] [address] [place] [address], [place] [address] Aug, [facility] [address] [id number] [address] [place] [address], [place] [address] Aug, [facility] [address] [id number] [address] [place] [address], [place] [address] Aug, [facility] [address] [id number] [address] [place] [address], [place] [address] Aug, [facility] [address] [id number] [address] [place] [address], [place] [address] Aug, [facility] [address] [id number] [address] [place] [address], [place] [address] Aug, [facility] [address] [id number] [address] [place] [address], [place] [address] Aug, [facility] [address] [id number] [address] [place] [address], [place] [address] Jul, [facility] [address] [id number] [address] [place] [address], [place] [address] Jul, [facility] [address] [id number] [address] [place] [address], [place] [address] Jul, [facility] [address] [id number] [address] [place] [address], [place] [address] Jul, [facility] [address] [id number] [address] [place] [address], [place] [address] Jul, [facility] [address] [id number] [address] [place] [address], [place] [address] Jul, [facility] [address] [id number] [address] [place] [address], [place] [address] Jul, [facility] [address] [id number] [address] [place] [address], [place] [address] Jul, [facility] [address] [id number] [address] [place] [address], [place] [address] Jul, [facility] [address] [id number] [address] [place] [address], [place] [address] 14 Jun, 2013 [facility] [address] [id number] [address] [place] [address], [place] [address] 14 Jun, 2013 [facility] [address] [id number] [address] [place] [address], [place] [address] Jun, [facility] [address] [id number] [address] [place] [address], [place] [address] Jun, [facility] [address] [id number] [address] [place] [address], [place] [address] Jun, [facility] [address] [id number] [address] [place] [address], [place] [address] Jun, [facility] [address] [id number] [address] [place] [address], [place] [address] 31 May, 2013 [facility] [address] [id number] [address] [place] [address], [place] [address] 31 May, 2013 [facility] [address] [id number] [address] [place] [address], [place] [address] 17 May, 2013 [facility] [address] [id number] [address] [place] [address], [place] [address] 17 May, 2013 [facility] [address] [id number] [address] [place] [address], [place] [address] 14 May, 2013 [facility] [address] [id number] [address] [place] [address], [place] [address] 14 May, 2013 [facility] [address] [id number] [address] [place] [address], [place] [address] 10 May, 2013 [facility] [address] [id number] [address] [place] [address], [place] [address] 10 May, 2013 [facility] [address] [id number] [address] [place] [id number] 07 May, 2013 [facility] [address] [id number] [address] [place] [id number] 20 Sep, 2012 [facility] [address] [id number] 29 [place] [address], [place] [address] 19 Sep, 2012 [facility] [address] [id number] [address] [place] [address], [place] [address] 12 Apr, 2012 [facility] [address] [id number] [address] [place] [address], [place] [address] 24 Sep, 2011 [facility] [address] [id number] [address] [place] [address], [place] [address] 21 Sep, 2011 [facility] [address] [id number] [address] [place] [address], [place] [address] 21 Apr, 2011 [facility] [address] [id number] [address] [place] [address], [place] [address] 14 Apr, 2011 [facility] [address] [id number] [address] [place] [address], [place] [address] 10 Apr, 2011 [facility] [address] [id number] [address] [place] [address], [place] [address] 06 Apr, 2011 [facility] [address] [id number] [address] [place] [address], [place] [address] 04 Apr, 2011 [facility] [address] [id number] [address] [place] [address], [place] [address] 31 Mar, 2012 [facility] [address] [id number] [address] [place] [address], [place] [address] 28 Mar, 2012 [facility] [address] [id number] [address] [place] [address], [place] [address] 27 Mar, 2012 [facility] [address] [id number] [address] [place] [address], [place] [address] 10 Mar, 2012 [facility] [address] [id number] [address] [place] [address], [place] [address] 08 Mar, 2012 [facility] [address] [id number] [address] [place] [address], [place] [address] 03 Mar, 2012 [facility] [address] [id number] [address] [place] [address], [place] [address] Feb, [facility] [address] [id number] [address] [place] [address], [place] [address] Feb, [facility] [address] [id number] [address] [place] [address], [place] [address] Feb, [facility] [address] [id number] [address] [place] [address], [place] [address] Jan, [facility] [address] [id number] [address] [place] [address], [place] [address] Jan, [facility] [address] [id number] [address] [place] [address], [place] [address] Jan, [facility] [address] [id number] [address] [place] [address], [place] [address] Jan, [facility] [address] [id number] [address] [place] [address], [place] [address] Jan, [facility] [address] [id number] [address] [place] [address], [place] [address] Jan, [facility] [address] [id number] [address] [place] [address], [place] [address] Jan, [facility] [address] [id number] [address] [place] [address], [place] [address] Jan, [facility] [address] [id number] [address] [place] [address], [place] [address] December, [facility] [address] [id number] [address] [place] [address], [place] [address] December, [facility] [address] [id number] [address] [place] [address], [place] [address] December, [facility] [address] [id number] [address] [place] [address], [place] [address] December, [facility] [address] [id number] [address] [place] [address], [place] [address] December, [facility] [address] [id number] [address] [place] [address], [place] [address] December, [facility] [address] [id number] [address] [place] [address], [place] [address] 13 Nov, 2011 [facility] [address] [id number] [address] [place] [address], [place] [address] 13 Nov, 2011 [facility] [address] [id number] [address] [place] [address], [place] [address] Nov, [facility] [address] [id number] [address] [place] [address], [place] [address] Nov, [facility] [address] [id number] [address] [place] [address], [place] [address] Nov, [facility] [address] [id number] [address] [place] [address], [place] [address] Oct, [facility] [address] [id number] [address] [place] [address], [place] [address] 17 Sep, 2011 [facility] [address] [id number] [address] [place] [address], [place] [address] Aug, [facility] [address] [id number] [address] [place] [address], [place] [address] Aug, [facility] [address] [id number] [address] [place] [address], [place] [address] Aug, [facility] [address] [id number] [address] [place] [address], [place] [address] Aug, [facility] [address] [id number] [address] [place] [address], [place] [address] Aug, [facility] [address] [id number] [address] [place] [address], [place] [address] Jul, [facility] [address] [id number] [address] [place] [address], [place] [address] Jul, [facility] [address] [id number] [address] [place] [address], [place] [address] Jun, [facility] [address] [id number] [address] [place] [address], [place] [address] Jun, [facility] [address] [id number] [address] [place] [address], [place] [address] Jun, [facility] [address] [id number] [address] [place] [address], [place] [address] May, [facility] [address] [id number] [address] [place] [address], [place] [address] May, [facility] [address] [id number] [address] [place] [address], [place] [address] 16 Oct, 2010 [facility] [address] [id number] [address] [place] [address], [place] [address] Oct, [facility] [address] [id number] [address] [place] [address], [place] [address] 29 Jul, 2010 [facility] [address] [id number] [address] [place] [address], [place] [address] 08 Jul, 2010 [facility] [address] [id number] [address] [place] [address], [place] [address] Jul, [facility] [address] [id number] [address] [place] [address], [place] [address] Jul, [facility] [address] [id number] [address] [place] [address], [place] [address] Jul, [facility] [address] [id number] [address] [place] [address], [place] [address] Jun, [facility] [address] [id number] [address] [place] [address], [place] [address] Jun, [facility] [address] [id number] [address] [place] [address], [place] [address] Jun, [facility] [address] [id number] [address] [place] [address], [place] [address] May, [facility] [address] [facility] [id number] [address] [place] [address] 16 Mar, 2010 IMMUNIZATIONS No Known Immunizations [...]
--- OUTSIDE RECORDS SUMMARY | 2020-03-12 09:32 | XMS REPORT ---
Author Author Caren LYLE Organization [facility] Address [address] [place] [address] Care Team Providers Care Thermometer Maker Name Role Phone LAURIE LYLE Unavailable PROBLEMS Type Condition ICD9-CM Code NFV02-LI Code Onset Dates Condition S tatus SNOMED Code Problem COPD (chronic obstructive pulmonary disease) J44.9 Active 07748561 Problem Diabetes E11.9 Active 92825664 Problem Diabetic neuropathy E11.40 Active 678047435 Problem Arthritis M19.90 Active 8165039 ALLERGIES No Information ENCOUNTERS Encounter Location Date Diagnosis [facility] [address] [facility] [id number] [address] [place] [address] December, [facility] [address] [id number] [address] [place] [address] Aug, Arthritis M19.90 [facility] [address] [facility] [id number] [address] [place] [address] Jul, [facility] [address] [facility] [id number] [address] [place] [address] Jul, [facility] [address] [facility] [id number] [address] [place] [address] Jul, [facility] [address] [id number] [address] [place] [address] Jul, [facility] [address] [facility] [id number] [address] [place] [address] Jul, Diabetes E11.9 ; Diabetic ne uropathy E11.40 ; Arthritis M19.90 and COPD (chronic obstructive pulmonary disease) J44.9 [facility] [address] [facility] [id number] [address] [place] [address] Jul, [facility] [address] [id number] [address] [place] [address], [place] [address] 23 Jun, 2015 [facility] [address] [id number] [address] [place] [address], [place] [address] 23 Jun, 2015 [facility] [address] [id number] [address] [place] [address], [place] [address] 17 Jun, 2014 [facility] [address] [id number] [address] [place] [address], [place] [address] 10 Jun, 2014 [facility] [address] [id number] [address] [place] [address], [place] [address] 15 May, 2015 [facility] [address] [id number] [address] [place] [address], [place] [address] 13 May, 2015 [facility] [address] [id number] [address] [place] [address], [place] [address] 07 May, 2015 [facility] [address] [id number] [address] [place] [address], [place] [address] 22 Sep, 2014 [facility] [address] [id number] [address] [place] [address], [place] [address] 21 Sep, 2014 [facility] [address] [id number] [address] [place] [address], [place] [address] 21 Sep, 2014 [facility] [address] [id number] [address] [place] [address], [place] [address] 15 Sep, 2014 [facility] [address] [id number] [address] [place] [address], [place] [address] 11 Sep, 2014 [facility] [address] [id number] [address] [place] [address], [place] [address] 09 Sep, 2014 [facility] [address] [id number] [address] [place] [address], [place] [address] 08 Sep, 2014 [facility] [address] [id number] [address] [place] [address], [place] [address] 03 Sep, 2014 [facility] [address] [id number] [address] [place] [address] [address] Apr, [facility] [address] [facility] [id number] [address] [place] [address] Mar, [facility] [address] [facility] [id number] [address] [place] [address] Mar, [facility] [address] [facility] [id number] [address] [place] [address] Mar, [facility] [address] [facility] [id number] [address] [place] [address] Mar, [facility] [address] [facility] [id number] [address] [place] [address] Mar, [facility] [address] [facility] [id number] [address] [place] [address] Mar, Diabetes mellitus 250.00 ; C OPD (chronic obstructive pulmonary disease) 496 ; Anxiety 300.00 and Arthritis 716.90 [facility] [address] [facility] [id number] [address] [place] [address] Feb, [facility] [address] [facility] [id number] [address] [place] [address] Feb, [facility] [address] [facility] [id number] [address] [place] [address] Feb, [facility] [address] [facility] [id number] [address] [place] [address] Feb, [facility] [address] [facility] [id number] [address] [place] [address] Jan, Seborrheic keratosis 702.19 and Nevus 216.9 [facility] [address] [facility] [id number] [address] [place] [address] Jan, [facility] [address] [facility] [id number] [address] [place] [address] Jan, Routine gynecological examin ation V72.31 ; Breast cancer screening V76.10 ; Hot flashes 627.2 ; Atypical nevi 216.9 and Constipation 564.00 [facility] [address] [id number] [address] [place] [address], [place] [address] Jan, [facility] [address] [id number] [address] [place] [address], [place] [address] December, [facility] [address] [id number] [address] [place] [address], [place] [address] December, [facility] [address] [id number] [address] [place] [address], [place] [address] Nov, [facility] [address] [id number] [address] [place] [address], [place] [address] Nov, [facility] [address] [id number] [address] [place] [address], [place] [address] Oct, [facility] [address] [id number] [address] [place] [address], [place] [address] 23 Oct, 2014 [facility] [address] [id number] [address] [place] [address], [place] [address] 18 Oct, 2014 [facility] [address] [id number] [address] [place] [address], [place] [address] 18 Oct, 2014 [facility] [address] [id number] [address] [place] [address], [place] [address] 17 Oct, 2014 [facility] [address] [id number] [address] [place] [address], [place] [address] 17 Oct, 2014 [facility] [address] [id number] [address] [place] [address] 16 Oct, 2014 [facility] [address] [id number] [address] [place] [address], [place] [address] 16 Oct, 2014 [facility] [address] [id number] [address] [place] [address], [place] [address] 11 Oct, 2014 [facility] [address] [id number] [address] [place] [address], [place] [address] 11 Oct, 2014 [facility] [address] [id number] [address] [place] [address], [place] [address] Sep, 2014 [facility] [address] [id number] [address] [place] [address], [place] [address] Sep, 2014 [facility] [address] [id number] [address] [place] [address], [place] [address] 19 Sep, 2014 [facility] [address] [id number] [address] [place] [address], [place] [address] 18 Sep, 2014 [facility] [address] [id number] [address] [place] [address], [place] [address] Sep, 2014 [facility] [address] [id number] [address] [place] [address], [place] [address] Sep, 2014 [facility] [address] [id number] [address] [place] [address], [place] [address] Sep, 2014 [facility] [address] [id number] [address] [place] [address], [place] [address] Aug, [facility] [address] [id number] [address] [place] [address], [place] [address] Aug, [facility] [address] [id number] [address] [place] [address], [place] [address] Aug, [facility] [address] [id number] [address] [place] [address], [place] [address] Aug, [facility] [address] [id number] [address] [place] [address], [place] [address] Aug, [facility] [address] [id number] [address] [place] [address], [place] [address] Aug, [facility] [address] [id number] [address] [place] [address], [place] [address] Jul, [facility] [address] [id number] [address] [place] [address], [place] [address] Jul, [facility] [address] [id number] [address] [place] [address], [place] [address] Jul, [facility] [address] [id number] [address] [place] [address], [place] [address] Jul, [facility] [address] [id number] [address] [place] [address], [place] [address] Jul, [facility] [address] [id number] [address] [place] [address], [place] [address] Jun, [facility] [address] [id number] [address] [place] [address], [place] [address] Jun, [facility] [address] [id number] [address] [place] [address], [place] [address] Jun, [facility] [address] [id number] [address] [place] [address], [place] [address] Jun, [facility] [address] [id number] [address] [place] [address], [place] [address] Jun, [facility] [address] [id number] [address] [place] [address], [place] [address] Jun, [facility] [address] [id number] [address] [place] [address], [place] [address] May, [facility] [address] [id number] [address] [place] [address], [place] [address] May, [facility] [address] [id number] [address] [place] [address], [place] [address] May, [facility] [address] [id number] [address] [place] [address] May, [facility] [address] [id number] [address] [place] [address], [place] [address] May, [facility] [address] [id number] [address] [place] [address], [place] [address] May, [facility] [address] [id number] [address] [place] [address], [place] [address] May, [facility] [address] [id number] [address] [place] [address], [place] [address] May, [facility] [address] [id number] [address] [place] [address], [place] [address] May, [facility] [address] [id number] [address] [place] [address], [place] [address] Apr, [facility] [address] [id number] [address] [place] [address], [place] [address] Apr, [facility] [address] [id number] [address] [place] [address], [place] [address] Apr, [facility] [address] [id number] [address] [place] [address], [place] [address] Apr, [facility] [address] [id number] [address] [place] [address], [place] [address] Mar, [facility] [address] [id number] [address] [place] [address], [place] [address] Mar, [facility] [address] [id number] [address] [place] [address], [place] [address] Mar, [facility] [address] [id number] [address] [place] [address], [place] [address] Mar, [facility] [address] [id number] [address] [place] [address], [place] [address] Mar, [facility] [address] [id number] [address] [place] [address], [place] [address] Mar, [facility] [address] [id number] [address] [place] [address], [place] [address] Feb, [facility] [address] [id number] [address] [place] [address], [place] [address] Feb, [facility] [address] [id number] [address] [place] [address], [place] [address] Feb, [facility] [address] [id number] [address] [place] [address], [place] [address] Feb, [facility] [address] [id number] [facility] [address] Feb, 2013 [facility] [address] [id number] [facility] [place] [address] Feb, [facility] [address] [id number] [address] [place] [address], [place] [address] Feb, 2013 [facility] [address] [id number] [address] [place] [address], [place] [address] Feb, 2013 [facility] [address] [id number] [address] [place] [address], [place] [address] Feb, 2013 [facility] [address] [id number] [address] [place] [address], [place] [address] Feb, [facility] [address] [id number] [address] [place] [address], [place] [address] Feb, [facility] [address] [id number] [address] [place] [address], [place] [address] Feb, [facility] [address] [id number] [address] [place] [address], [place] [address] Jan, [facility] [address] [id number] [address] [place] [address], [place] [address] Jan, [facility] [address] [id number] [address] [place] [address], [place] [address] Jan, [facility] [address] [id number] [address] [place] [address], [place] [address] Jan, [facility] [address] [id number] [address] [place] [address], [place] [address] Jan, [facility] [address] [id number] [address] [place] [address], [place] [address] Jan, [facility] [address] [id number] [address] [place] [address], [place] [address] Jan, [facility] [address] [id number] [address] [place] [address], [place] [address] Jan, [facility] [address] [id number] [address] [place] [address], [place] [address] Jan, [facility] [address] [id number] [address] [place] [address], [place] [address] Jan, [facility] [address] [id number] [address] [place] [address], [place] [address] Jan, [facility] [address] [id number] [address] [place] [address], [place] [address] Jan, [facility] [address] [id number] [address] [place] [address], [place] [address] Jan, [facility] [address] [id number] [address] [place] [address], [place] [address] Jan, [facility] [address] [id number] [address] [place] [address], [place] [address] Jan, [facility] [address] [id number] [address] [place] [address], [place] [address] Jan, [facility] [address] [id number] [address] [place] [address], [place] [address] Jan, [facility] [address] [id number] [address] [place] [address], [place] [address] December, [facility] [address] [id number] [address] [place] [address], [place] [address] December, [facility] [address] [id number] [address] [place] [address], [place] [address] December, [facility] [address] [id number] [address] [place] [address], [place] [address] December, [facility] [address] [id number] [address] [place] [address], [place] [address] December, [facility] [address] [id number] [address] [place] [address], [place] [address] December, [facility] [address] [id number] [address] [place] [address], [place] [address] Nov, [facility] [address] [id number] [address] [place] [address], [place] [address] Nov, [facility] [address] [id number] [address] [place] [address], [place] [address] Nov, [facility] [address] [id number] [address] [place] [address], [place] [address] Nov, [facility] [address] [id number] [address] [place] [address], [place] [address] Nov, [facility] [address] [id number] [address] [place] [address], [place] [address] Nov, [facility] [address] [id number] [address] [place] [address], [place] [address] Nov, [facility] [address] [id number] [address] [place] [address], [place] [address] Nov, [facility] [address] [id number] [address] [place] [address], [place] [address] Nov, [facility] [address] [id number] [address] [place] [address], [place] [address] Nov, [facility] [address] [id number] [address] [place] [address], [place] [address] Nov, [facility] [address] [id number] [address] [place] [address], [place] [address] Nov, [facility] [address] [id number] [address] [place] [address], [place] [address] Nov, [facility] [address] [id number] [address] [place] [address], [place] [address] Nov, [facility] [address] [id number] [address] [place] [address], [place] [address] Nov, [facility] [address] [id number] [address] [place] [address], [place] [address] Nov, [facility] [address] [id number] [address] [place] [address], [place] [address] Oct, [facility] [address] [id number] [address] [place] [address], [place] [address] Oct, [facility] [address] [id number] [address] [place] [address], [place] [address] Oct, [facility] [address] [id number] [address] [place] [address], [place] [address] Oct, [facility] [address] [id number] [address] [place] [address], [place] [address] Oct, [facility] [address] [id number] [address] [place] [address], [place] [address] Oct, [facility] [address] [id number] [address] [place] [address], [place] [address] Oct, [facility] [address] [id number] [address] [place] [address], [place] [address] Oct, [facility] [address] [id number] [address] [place] [address], [place] [address] Sep, [facility] [address] [id number] [address] [place] [address], [place] [address] Sep, [facility] [address] [id number] [address] [place] [address], [place] [address] Sep, [facility] [address] [id number] [address] [place] [address], [place] [address] Sep, [facility] [address] [id number] [address] [place] [address], [place] [address] Sep, [facility] [address] [id number] [address] [place] [address], [place] [address] Sep, [facility] [address] [id number] [address] [place] [address], [place] [address] Aug, [facility] [address] [id number] [address] [place] [address], [place] [address] Aug, [facility] [address] [id number] [address] [place] [address], [place] [address] Aug, [facility] [address] [id number] [address] [place] [address], [place] [address] Aug, [facility] [address] [id number] [address] [place] [address], [place] [address] Aug, [facility] [address] [id number] [address] [place] [address], [place] [address] Aug, [facility] [address] [id number] [address] [place] [address], [place] [address] Aug, [facility] [address] [id number] [address] [place] [address], [place] [address] Aug, [facility] [address] [id number] [address] [place] [address], [place] [address] Jul, [facility] [address] [id number] [address] [place] [address], [place] [address] Jul, [facility] [address] [id number] [address] [place] [address], [place] [address] Jul, [facility] [address] [id number] [address] [place] [address], [place] [address] Jul, [facility] [address] [id number] [address] [place] [address], [place] [address] Jul, [facility] [address] [id number] [address] [place] [address], [place] [address] Jul, [facility] [address] [id number] [address] [place] [address], [place] [address] Jul, [facility] [address] [id number] [address] [place] [address], [place] [address] Jul, [facility] [address] [id number] [address] [place] [address], [place] [address] Jul, [facility] [address] [id number] [address] [place] [address], [place] [address] 14 Jun, 2013 [facility] [address] [id number] [address] [place] [address], [place] [address] 14 Jun, 2013 [facility] [address] [id number] [address] [place] [address], [place] [address] Jun, [facility] [address] [id number] [address] [place] [address], [place] [address] Jun, [facility] [address] [id number] [address] [place] [address], [place] [address] Jun, [facility] [address] [id number] [address] [place] [address], [place] [address] Jun, [facility] [address] [id number] [address] [place] [address], [place] [address] 31 May, 2013 [facility] [address] [id number] [address] [place] [address], [place] [address] 31 May, 2013 [facility] [address] [id number] [address] [place] [address], [place] [address] 17 May, 2013 [facility] [address] [id number] [address] [place] [address], [place] [address] 17 May, 2013 [facility] [address] [id number] [address] [place] [address], [place] [address] 14 May, 2013 [facility] [address] [id number] [address] [place] [address], [place] [address] 14 May, 2013 [facility] [address] [id number] [address] [place] [address], [place] [address] 10 May, 2013 [facility] [address] [id number] [address] [place] [address], [place] [address] 10 May, 2013 [facility] [address] [id number] [address] [place] [id number] 07 May, 2013 [facility] [address] [id number] [address] [place] [id number] 20 Sep, 2012 [facility] [address] [id number] [address] [place] [address], [place] [address] 19 Sep, 2012 [facility] [address] [id number] [address] [place] [address], [place] [address] 12 Apr, 2012 [facility] [address] [id number] [address] [place] [address], [place] [address] 24 Sep, 2011 [facility] [address] [id number] [address] [place] [address], [place] [address] 21 Sep, 2011 [facility] [address] [id number] [address] [place] [address], [place] [address] 21 Apr, 2011 [facility] [address] [id number] [address] [place] [address], [place] [address] 14 Apr, 2011 [facility] [address] [id number] [address] [place] [address], [place] [address] 10 Apr, 2011 [facility] [address] [id number] [address] [place] [address], [place] [address] 06 Apr, 2011 [facility] [address] [id number] [address] [place] [address], [place] [address] 04 Apr, 2011 [facility] [address] [id number] [address] [place] [address], [place] [address] 31 Mar, 2012 [facility] [address] [id number] [address] [place] [address], [place] [address] 28 Mar, 2012 [facility] [address] [id number] [address] [place] [address], [place] [address] 27 Mar, 2012 [facility] [address] [id number] [address] [place] [address], [place] [address] 10 Mar, 2012 [facility] [address] [id number] [address] [place] [address], [place] [address] 08 Mar, 2012 [facility] [address] [id number] [address] [place] [address], [place] [address] 03 Mar, 2012 [facility] [address] [id number] [address] [place] [address], [place] [address] Feb, [facility] [address] [id number] [address] [place] [address], [place] [address] Feb, [facility] [address] [id number] [address] [place] [address], [place] [address] Feb, [facility] [address] [id number] [address] [place] [address], [place] [address] Jan, [facility] [address] [id number] [address] [place] [address], [place] [address] Jan, [facility] [address] [id number] [address] [place] [address], [place] [address] Jan, [facility] [address] [id number] [address] [place] [address], [place] [address] Jan, [facility] [address] [id number] [address] [place] [address], [place] [address] Jan, [facility] [address] [id number] [address] [place] [address], [place] [address] Jan, [facility] [address] [id number] [address] [place] [address], [place] [address] Jan, [facility] [address] [id number] [address] [place] [address], [place] [address] Jan, [facility] [address] [id number] [address] [place] [address], [place] [address] December, [facility] [address] [id number] [address] [place] [address], [place] [address] December, [facility] [address] [id number] [address] [place] [address], [place] [address] December, [facility] [address] [id number] [address] [place] [address], [place] [address] December, [facility] [address] [id number] [address] [place] [address], [place] [address] December, [facility] [address] [id number] [address] [place] [address], [place] [address] December, [facility] [address] [id number] [address] [place] [address], [place] [address] 13 Nov, 2011 [facility] [address] [id number] [address] [place] [address], [place] [address] 13 Nov, 2011 [facility] [address] [id number] [address] [place] [address], [place] [address] Nov, [facility] [address] [id number] [address] [place] [address], [place] [address] Nov, [facility] [address] [id number] [address] [place] [address], [place] [address] Nov, [facility] [address] [id number] [address] [place] [address], [place] [address] Oct, [facility] [address] [id number] [address] [place] [address], [place] [address] 17 Sep, 2011 [facility] [address] [id number] [address] [place] [address], [place] [address] Aug, [facility] [address] [id number] [address] [place] [address], [place] [address] Aug, [facility] [address] [id number] [address] [place] [address], [place] [address] Aug, [facility] [address] [id number] [address] [place] [address], [place] [address] Aug, [facility] [address] [id number] [address] [place] [address], [place] [address] Aug, [facility] [address] [id number] [address] [place] [address], [place] [address] Jul, [facility] [address] [id number] [address] [place] [address], [place] [address] Jul, [facility] [address] [id number] [address] [place] [address], [place] [address] Jun, [facility] [address] [id number] [address] [place] [address], [place] [address] Jun, [facility] [address] [id number] [address] [place] [address], [place] [address] Jun, [facility] [address] [id number] [address] [place] [address], [place] [address] May, [facility] [address] [id number] [address] [place] [address], [place] [address] May, [facility] [address] [id number] [address] [place] [address], [place] [address] 16 Oct, 2010 [facility] [address] [id number] [address] [place] [address], [place] [address] Oct, [facility] [address] [id number] [address] [place] [address], [place] [address] 29 Jul, 2010 [facility] [address] [id number] [address] [place] [address], [place] [address] 08 Jul, 2010 [facility] [address] [id number] [address] [place] [address], [place] [address] Jul, [facility] [address] [id number] [address] [place] [address], [place] [address] Jul, [facility] [address] [id number] [address] [place] [address], [place] [address] Jul, [facility] [address] [id number] [address] [place] [address], [place] [address] Jun, [facility] [address] [id number] [address] [place] [address], [place] [address] Jun, [facility] [address] [id number] [address] [place] [address], [place] [address] Jun, [facility] [address] [id number] [address] [place] [address], [place] [address] May, [facility] [address] [facility] [id number] [address] [place] [address] 16 Mar, 2010 IMMUNIZATIONS No Known Immunizations SOCIAL HISTORY Never Assessed REASON FOR VISIT PLAN OF CARE VITAL SIGNS MEDICATIONS Unknown Medications RESULTS No Results PROCEDURES Procedure Date Ordered Result Body Site BASIC METABOLIC PANEL February 15, 2012 VENIPUNCT, ROUTINE* February 15, 2012 INSTRUCTIONS MEDICATIONS ADMINISTERED No Known Medications MEDICAL (GENERAL) HISTORY Type Description Date Medical History Hypertension Medical History Chronic obstructive pulmonary disease Medical History Type 2 diabetes mellitus Medical History Psychiatric disorders depression Surgical History Hysterectomy total abdominal 1995 Surgical History Orthopedic Surgery Surgical History Scleral buckle Hospitalization History No Hospitalization history informati on
--- OUTSIDE RECORDS SUMMARY | 2020-03-12 09:32 | XMS REPORT ---
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 Name Role Phone LAURIE LYLE Unavailable PROBLEMS Type Condition ICD9-CM Code GMM73-VS Code Onset Dates Condition S tatus SNOMED Code Problem COPD (chronic obstructive pulmonary disease) J44.9 Active 76803473 Problem Diabetes E11.9 Active 92139588 Problem Diabetic neuropathy E11.40 Active 937411872 Problem Arthritis M19.90 Active [id number] ALLERGIES No Information ENCOUNTERS Encounter Location Date Diagnosis [facility] [address] [facility] [id number] [address] [place] [address] December, [facility] [address] [id number] [address] [place] [address] Aug, Arthritis M19.90 [facility] [address] [facility] [id number] [address] [place] [address] Jul, [facility] [address] [facility] [id number] [address] [place] [address] Jul, [facility] [address] [facility] [id number] [address] [place] [address] Jul, [facility] [address] [id number] [address] [place] [address] Jul, [facility] [address] [facility] [id number] [address] [place] [address] Jul, Diabetes E11.9 ; Diabetic ne uropathy E11.40 ; Arthritis M19.90 and COPD (chronic obstructive pulmonary disease) J44.9 [facility] [address] [facility] [id number] [address] [place] [address] Jul, [facility] [address] [id number] [address] [place] [address], [place] [address] 23 Jun, 2015 [facility] [address] [id number] [address] [place] [address], [place] [address] 23 Jun, 2015 [facility] [address] [id number] [address] [place] [address], [place] [address] 17 Jun, 2014 [facility] [address] [id number] [address] [place] [address], [place] [address] 10 Jun, 2014 [facility] [address] [id number] [address] [place] [address], [place] [address] 15 May, 2015 [facility] [address] [id number] [address] [place] [address], [place] [address] 13 May, 2015 [facility] [address] [id number] [address] [place] [address], [place] [address] 07 May, 2015 [facility] [address] [id number] [address] [place] [address], [place] [address] 22 Sep, 2014 [facility] [address] [id number] [address] [place] [address], [place] [address] 21 Sep, 2014 [facility] [address] [id number] [address] [place] [address], [place] [address] 21 Sep, 2014 [facility] [address] [id number] [address] [place] [address], [place] [address] 15 Sep, 2014 [facility] [address] [id number] [address] [place] [address], [place] [address] 11 Sep, 2014 [facility] [address] [id number] [address] [place] [address], [place] [address] 09 Sep, 2014 [facility] [address] [id number] [address] [place] [address], [place] [address] 08 Sep, 2014 [facility] [address] [id number] [address] [place] [address], [place] [address] 03 Sep, 2014 [facility] [address] [id number] [address] [place] [address] [address] Apr, [facility] [address] [facility] [id number] [address] [place] [address] Mar, [facility] [address] [facility] [id number] [address] [place] [address] Mar, [facility] [address] [facility] [id number] [address] [place] [address] Mar, [facility] [address] [facility] [id number] [address] [place] [address] Mar, [facility] [address] [facility] [id number] [address] [place] [address] Mar, [facility] [address] [facility] [id number] [address] [place] [address] Mar, Diabetes mellitus 250.00 ; C OPD (chronic obstructive pulmonary disease) 496 ; Anxiety 300.00 and Arthritis 716.90 [facility] [address] [facility] [id number] [address] [place] [address] Feb, [facility] [address] [facility] [id number] [address] [place] [address] Feb, [facility] [address] [facility] [id number] [address] [place] [address] Feb, [facility] [address] [facility] [id number] [address] [place] [address] Feb, [facility] [address] [facility] [id number] [address] [place] [address] Jan, Seborrheic keratosis 702.19 and Nevus 216.9 [facility] [address] [facility] [id number] [address] [place] [address] Jan, [facility] [address] [facility] [id number] [address] [place] [address] Jan, Routine gynecological examin ation V72.31 ; Breast cancer screening V76.10 ; Hot flashes 627.2 ; Atypical nevi 216.9 and Constipation 564.00 [facility] [address] [id number] [address] [place] [address], [place] [address] Jan, [facility] [address] [id number] [address] [place] [address], [place] [address] December, [facility] [address] [id number] [address] [place] [address], [place] [address] December, [facility] [address] [id number] [address] [place] [address], [place] [address] Nov, [facility] [address] [id number] [address] [place] [address], [place] [address] Nov, [facility] [address] [id number] [address] [place] [address], [place] [address] Oct, [facility] [address] [id number] [address] [place] [address], [place] [address] 23 Oct, 2014 [facility] [address] [id number] [address] [place] [address], [place] [address] 18 Oct, 2014 [facility] [address] [id number] [address] [place] [address], [place] [address] 18 Oct, 2014 [facility] [address] [id number] [address] [place] [address], [place] [address] 17 Oct, 2014 [facility] [address] [id number] [address] [place] [address], [place] [address] 17 Oct, 2014 [facility] [address] [id number] [address] [place] [address] 16 Oct, 2014 [facility] [address] [id number] [address] [place] [address], [place] [address] 16 Oct, 2014 [facility] [address] [id number] [address] [place] [address], [place] [address] 11 Oct, 2014 [facility] [address] [id number] [address] [place] [address], [place] [address] 11 Oct, 2014 [facility] [address] [id number] [address] [place] [address], [place] [address] Sep, 2014 [facility] [address] [id number] [address] [place] [address], [place] [address] Sep, 2014 [facility] [address] [id number] [address] [place] [address], [place] [address] 19 Sep, 2014 [facility] [address] [id number] [address] [place] [address], [place] [address] 18 Sep, 2014 [facility] [address] [id number] [address] [place] [address], [place] [address] Sep, 2014 [facility] [address] [id number] [address] [place] [address], [place] [address] Sep, 2014 [facility] [address] [id number] [address] [place] [address], [place] [address] Sep, 2014 [facility] [address] [id number] [address] [place] [address], [place] [address] Aug, [facility] [address] [id number] [address] [place] [address], [place] [address] Aug, [facility] [address] [id number] [address] [place] [address], [place] [address] Aug, [facility] [address] [id number] [address] [place] [address], [place] [address] Aug, [facility] [address] [id number] [address] [place] [address], [place] [address] Aug, [facility] [address] [id number] [address] [place] [address], [place] [address] Aug, [facility] [address] [id number] [address] [place] [address], [place] [address] Jul, [facility] [address] [id number] [address] [place] [address], [place] [address] Jul, [facility] [address] [id number] [address] [place] [address], [place] [address] Jul, [facility] [address] [id number] [address] [place] [address], [place] [address] Jul, [facility] [address] [id number] [address] [place] [address], [place] [address] Jul, [facility] [address] [id number] [address] [place] [address], [place] [address] Jun, [facility] [address] [id number] [address] [place] [address], [place] [address] Jun, [facility] [address] [id number] [address] [place] [address], [place] [address] Jun, [facility] [address] [id number] [address] [place] [address], [place] [address] Jun, [facility] [address] [id number] [address] [place] [address], [place] [address] Jun, [facility] [address] [id number] [address] [place] [address], [place] [address] Jun, [facility] [address] [id number] [address] [place] [address], [place] [address] May, [facility] [address] [id number] [address] [place] [address], [place] [address] May, [facility] [address] [id number] [address] [place] [address], [place] [address] May, [facility] [address] [id number] [address] [place] [address] May, [facility] [address] [id number] [address] [place] [address], [place] [address] May, [facility] [address] [id number] [address] [place] [address], [place] [address] May, [facility] [address] [id number] [address] [place] [address], [place] [address] May, [facility] [address] [id number] [address] [place] [address], [place] [address] May, [facility] [address] [id number] [address] [place] [address], [place] [address] May, [facility] [address] [id number] [address] [place] [address], [place] [address] Apr, [facility] [address] [id number] [address] [place] [address], [place] [address] Apr, [facility] [address] [id number] [address] [place] [address], [place] [address] Apr, [facility] [address] [id number] [address] [place] [address], [place] [address] Apr, [facility] [address] [id number] [address] [place] [address], [place] [address] Mar, [facility] [address] [id number] [address] [place] [address], [place] [address] Mar, [facility] [address] [id number] [address] [place] [address], [place] [address] Mar, [facility] [address] [id number] [address] [place] [address], [place] [address] Mar, [facility] [address] [id number] [address] [place] [address], [place] [address] Mar, [facility] [address] [id number] [address] [place] [address], [place] [address] Mar, [facility] [address] [id number] [address] [place] [address], [place] [address] Feb, [facility] [address] [id number] [address] [place] [address], [place] [address] Feb, [facility] [address] [id number] [address] [place] [address], [place] [address] Feb, [facility] [address] [id number] [address] [place] [address], [place] [address] Feb, [facility] [address] [id number] [facility] [place] [address] Feb, 2013 [facility] [address] [id number] [facility] [place] [address] Feb, [facility] [address] [id number] [address] [place] [address], [place] [address] Feb, 2013 [facility] [address] [id number] [address] [place] [address], [place] [address] Feb, 2013 [facility] [address] [id number] [address] [place] [address], [place] [address] Feb, 2013 [facility] [address] [id number] [address] [place] [address], [place] [address] Feb, [facility] [address] [id number] [address] [place] [address], [place] [address] Feb, [facility] [address] [id number] [address] [place] [address], [place] [address] Feb, [facility] [address] [id number] [address] [place] [address], [place] [address] Jan, [facility] [address] [id number] [address] [place] [address], [place] [address] Jan, [facility] [address] [id number] [address] [place] [address], [place] [address] Jan, [facility] [address] [id number] [address] [place] [address], [place] [address] Jan, [facility] [address] [id number] [address] [place] [address], [place] [address] Jan, [facility] [address] [id number] [address] [place] [address], [place] [address] Jan, [facility] [address] [id number] [address] [place] [address], [place] [address] Jan, [facility] [address] [id number] [address] [place] [address], [place] [address] Jan, [facility] [address] [id number] [address] [place] [address], [place] [address] Jan, [facility] [address] [id number] [address] [place] [address], [place] [address] Jan, [facility] [address] [id number] [address] [place] [address], [place] [address] Jan, [facility] [address] [id number] [address] [place] [address], [place] [address] Jan, [facility] [address] [id number] [address] [place] [address], [place] [address] Jan, [facility] [address] [id number] [address] [place] [address], [place] [address] Jan, [facility] [address] [id number] [address] [place] [address], [place] [address] Jan, [facility] [address] [id number] [address] [place] [address], [place] [address] Jan, [facility] [address] [id number] [address] [place] [address], [place] [address] Jan, [facility] [address] [id number] [address] [place] [address], [place] [address] December, [facility] [address] [id number] [address] [place] [address], [place] [address] December, [facility] [address] [id number] [address] [place] [address], [place] [address] December, [facility] [address] [id number] [address] [place] [address], [place] [address] December, [facility] [address] [id number] [address] [place] [address], [place] [address] December, [facility] [address] [id number] [address] [place] [address], [place] [address] December, [facility] [address] [id number] [address] [place] [address], [place] [address] Nov, [facility] [address] [id number] [address] [place] [address], [place] [address] Nov, [facility] [address] [id number] [address] [place] [address], [place] [address] Nov, [facility] [address] [id number] [address] [place] [address], [place] [address] Nov, [facility] [address] [id number] [address] [place] [address], [place] [address] Nov, [facility] [address] [id number] [address] [place] [address], [place] [address] Nov, [facility] [address] [id number] [address] [place] [address], [place] [address] Nov, [facility] [address] [id number] [address] [place] [address], [place] [address] Nov, [facility] [address] [id number] [address] [place] [address], [place] [address] Nov, [facility] [address] [id number] [address] [place] [address], [place] [address] Nov, [facility] [address] [id number] [address] [place] [address], [place] [address] Nov, [facility] [address] [id number] [address] [place] [address], [place] [address] Nov, [facility] [address] [id number] [address] [place] [address], [place] [address] Nov, [facility] [address] [id number] [address] [place] [address], [place] [address] Nov, [facility] [address] [id number] [address] [place] [address], [place] [address] Nov, [facility] [address] [id number] [address] [place] [address], [place] [address] Nov, [facility] [address] [id number] [address] [place] [address], [place] [address] Oct, [facility] [address] [id number] [address] [place] [address], [place] [address] Oct, [facility] [address] [id number] [address] [place] [address], [place] [address] Oct, [facility] [address] [id number] [address] [place] [address], [place] [address] Oct, [facility] [address] [id number] [address] [place] [address], [place] [address] Oct, [facility] [address] [id number] [address] [place] [address], [place] [address] Oct, [facility] [address] [id number] [address] [place] [address], [place] [address] Oct, [facility] [address] [id number] [address] [place] [address], [place] [address] Oct, [facility] [address] [id number] [address] [place] [address], [place] [address] Sep, [facility] [address] [id number] [address] [place] [address], [place] [address] Sep, [facility] [address] [id number] [address] [place] [address], [place] [address] Sep, [facility] [address] [id number] [address] [place] [address], [place] [address] Sep, [facility] [address] [id number] [address] [place] [address], [place] [address] Sep, [facility] [address] [id number] [address] [place] [address], [place] [address] Sep, [facility] [address] [id number] [address] [place] [address], [place] [address] Aug, [facility] [address] [id number] [address] [place] [address], [place] [address] Aug, [facility] [address] [id number] [address] [place] [address], [place] [address] Aug, [facility] [address] [id number] [address] [place] [address], [place] [address] Aug, [facility] [address] [id number] [address] [place] [address], [place] [address] Aug, [facility] [address] [id number] [address] [place] [address], [place] [address] Aug, [facility] [address] [id number] [address] [place] [address], [place] [address] Aug, [facility] [address] [id number] [address] [place] [address], [place] [address] Aug, [facility] [address] [id number] [address] [place] [address], [place] [address] Jul, [facility] [address] [id number] [address] [place] [address], [place] [address] Jul, [facility] [address] [id number] [address] [place] [address], [place] [address] Jul, [facility] [address] [id number] [address] [place] [address], [place] [address] Jul, [facility] [address] [id number] [address] [place] [address], [place] [address] Jul, [facility] [address] [id number] [address] [place] [address], [place] [address] Jul, [facility] [address] [id number] [address] [place] [address], [place] [address] Jul, [facility] [address] [id number] [address] [place] [address], [place] [address] Jul, [facility] [address] [id number] [address] [place] [address], [place] [address] Jul, [facility] [address] [id number] [address] [place] [address], [place] [address] 14 Jun, 2013 [facility] [address] [id number] [address] [place] [address], [place] [address] 14 Jun, 2013 [facility] [address] [id number] [address] [place] [address], [place] [address] Jun, [facility] [address] [id number] [address] [place] [address], [place] [address] Jun, [facility] [address] [id number] [address] [place] [address], [place] [address] Jun, [facility] [address] [id number] [address] [place] [address], [place] [address] Jun, [facility] [address] [id number] [address] [place] [address], [place] [address] 31 May, 2013 [facility] [address] [id number] [address] [place] [address], [place] [address] 31 May, 2013 [facility] [address] [id number] [address] [place] [address], [place] [address] 17 May, 2013 [facility] [address] [id number] [address] [place] [address], [place] [address] 17 May, 2013 [facility] [address] [id number] [address] [place] [address], [place] [address] 14 May, 2013 [facility] [address] [id number] [address] [place] [address], [place] [address] 14 May, 2013 [facility] [address] [id number] [address] [place] [address], [place] [address] 10 May, 2013 [facility] [address] [id number] [address] [place] [address], [place] [address] 10 May, 2013 [facility] [address] [id number] [address] [place] [address] 07 May, 2013 [facility] [address] [id number] [address] [place] [address] 20 Sep, 2012 [facility] [address] [id number] [address] [place] [address], [place] [address] 19 Sep, 2012 [facility] [address] [id number] [address] [place] [address], [place] [address] 12 Apr, 2012 [facility] [address] [id number] [address] [place] [address], [place] [address] 24 Sep, 2011 [facility] [address] [id number] [address] [place] [address], [place] [address] 21 Sep, 2011 [facility] [address] [id number] [address] [place] [address], [place] [address] 21 Apr, 2011 [facility] [address] [id number] [address] [place] [address], [place] [address] 14 Apr, 2011 [facility] [address] [id number] [address] [place] [address], [place] [address] 10 Apr, 2011 [facility] [address] [id number] [address] [place] [address], [place] [address] 06 Apr, 2011 [facility] [address] [address] [id number] [address] [place] [address], [place] [address] 04 Apr, 2011 [facility] [address] [id number] [address] [place] [address], [place] [address] 31 Mar, 2012 [facility] [address] [id number] [address] [place] [address], [place] [address] 28 Mar, 2012 [facility] [address] [id number] [address] [place] [address], [place] [address] 27 Mar, 2012 [facility] [address] [id number] [address] [place] [address], [place] [address] 10 Mar, 2012 [facility] [address] [id number] [address] [place] [address], [place] [address] 08 Mar, 2012 [facility] [address] [id number] [address] [place] [address], [place] [address] 03 Mar, 2012 [facility] [address] [id number] [address] [place] [address], [place] [address] Feb, [facility] [address] [id number] [address] [place] [address], [place] [address] Feb, [facility] [address] [id number] [address] [place] [address], [place] [address] Feb, [facility] [address] [id number] [address] [place] [address], [place] [address] Jan, [facility] [address] [id number] [address] [place] [address], [place] [address] Jan, [facility] [address] [id number] [address] [place] [address], [place] [address] Jan, [facility] [address] [id number] [address] [place] [address], [place] [address] Jan, [facility] [address] [id number] [address] [place] [address], [place] [address] Jan, [facility] [address] [id number] [address] [place] [address], [place] [address] Jan, [facility] [address] [id number] [address] [place] [address], [place] [address] Jan, [facility] [address] [id number] [address] [place] [address], [place] [address] Jan, [facility] [address] [id number] [address] [place] [address], [place] [address] December, [facility] [address] [id number] [address] [place] [address], [place] [address] December, [facility] [address] [id number] [address] [place] [address], [place] [address] December, [facility] [address] [id number] [address] [place] [address], [place] [address] December, [facility] [address] [id number] [address] [place] [address], [place] [address] December, [facility] [address] [id number] [address] [place] [address], [place] [address] December, [facility] [address] [id number] [address] [place] [address], [place] [address] 13 Nov, 2011 [facility] [address] [id number] [address] [place] [address], [place] [address] 13 Nov, 2011 [facility] [address] [id number] [address] [place] [address], [place] [address] Nov, [facility] [address] [id number] [address] [place] [address], [place] [address] Nov, [facility] [address] [id number] [address] [place] [address], [place] [address] Nov, [facility] [address] [id number] [address] [place] [address], [place] [address] Oct, [facility] [address] [id number] [address] [place] [address], [place] [address] 17 Sep, 2011 [facility] [address] [id number] [address] [place] [address], [place] [address] Aug, [facility] [address] [id number] [address] [place] [address], [place] [address] Aug, [facility] [address] [id number] [address] [place] [address], [place] [address] Aug, [facility] [address] [id number] [address] [place] [address], [place] [address] Aug, [facility] [address] [id number] [address] [place] [address], [place] [address] Aug, [facility] [address] [id number] [address] [place] [address], [place] [address] Jul, [facility] [address] [id number] [address] [place] [address], [place] [address] Jul, [facility] [address] [id number] [address] [place] [address], [place] [address] Jun, [facility] [address] [id number] [address] [place] [address], [place] [address] Jun, [facility] [address] [id number] [address] [place] [address], [place] [address] Jun, [facility] [address] [id number] [address] [place] [address], [place] [address] May, [facility] [address] [id number] [address] [place] [address], [place] [address] May, [facility] [address] [id number] [address] [place] [address], [place] [address] 16 Oct, 2010 [facility] [address] [id number] [address] [place] [address], [place] [address] Oct, [facility] [address] [id number] [address] [place] [address], [place] [address] 29 Jul, 2010 [facility] [address] [id number] [address] [place] [address], [place] [address] 08 Jul, 2010 [facility] [address] [id number] [address] [place] [address], [place] [address] Jul, [facility] [address] [id number] [address] [place] [address], [place] [address] Jul, [facility] [address] [id number] [address] [place] [address], [place] [address] Jul, [facility] [address] [id number] [address] [place] [address], [place] [address] Jun, [facility] [address] [id number] [address] [place] [address], [place] [address] Jun, [facility] [address] [id number] [address] [place] [address], [place] [address] Jun, [facility] [address] [id number] [address] [place] [address], [place] [address] May, [facility] [address] [facility] [id number] [address] [place] [address] 16 Mar, 2010 IMMUNIZATIONS No Known Immunizations SOCIAL HISTORY Never Assessed REASON FOR VISIT PLAN OF CARE VITAL SIGNS MEDICATIONS Unknown Medications RESULTS No Results PROCEDURES Procedure Date Ordered Result Body Site BASIC METABOLIC PANEL February 09, 2012 URINALYSIS, AUTO, W/O SCOPE February 09, 2012 VENIPUNCT, ROUTINE* February 09, 2012 INSTRUCTIONS MEDICATIONS ADMINISTERED No Known Medications MEDICAL (GENERAL) HISTORY Type Description Date Medical History Hypertension Medical History Chronic obstructive pulmonary disease Medical History Type 2 diabetes mellitus Medical History Psychiatric disorders depression Surgical History Hysterectomy total abdominal 1995 Surgical History Orthopedic Surgery Surgical History Scleral buckle Hospitalization History No Hospitalization history informati on
--- OUTSIDE RECORDS SUMMARY | 2020-03-12 09:32 | XMS REPORT ---
Author Author Caren LYLE Organization [facility] Address [address] [place] [address] Care Team Providers Care Emt Intermediate Name Role Phone LAURIE LYLE Unavailable PROBLEMS Type Condition ICD9-CM Code LAB63-CI Code Onset Dates Condition S tatus SNOMED Code Problem COPD (chronic obstructive pulmonary disease) J44.9 Active 28215274 Problem Diabetes E11.9 Active 55858808 Problem Diabetic neuropathy E11.40 Active 503159690 Problem Arthritis M19.90 Active 0686044 ALLERGIES No Information ENCOUNTERS Encounter Location Date Diagnosis [facility] [address] [facility] [id number] [address] [place] [address] December, [facility] [address] [id number] [address] [place] [address] Aug, Arthritis M19.90 [facility] [address] [facility] [id number] [address] [place] [id number] Jul, [facility] [address] [facility] [id number] [address] [place] [address] Jul, [facility] [address] [facility] [id number] [address] [place] [address] Jul, [facility] [address] [id number] [address] [place] [address] Jul, [facility] [address] [facility] [id number] [address] [place] [address] Jul, Diabetes E11.9 ; Diabetic ne uropathy E11.40 ; Arthritis M19.90 and COPD (chronic obstructive pulmonary disease) J44.9 [facility] [address] [facility] [id number] [address] [place] [address] Jul, [facility] [address] [id number] [address] [place] [address], [place] [address] 23 Jun, 2015 [facility] [address] [id number] [address] [place] [address], [place] [address] 23 Jun, 2015 [facility] [address] [id number] [address] [place] [address], [place] [address] 17 Jun, 2014 [facility] [address] [id number] [address] [place] [address], [place] [address] 10 Jun, 2014 [facility] [address] [id number] [address] [place] [address], [place] [address] 15 May, 2015 [facility] [address] [id number] [address] [place] [address], [place] [address] 13 May, 2015 [facility] [address] [id number] [address] [place] [address], [place] [address] 07 May, 2015 [facility] [address] [id number] [address] [place] [address], [place] [address] 22 Sep, 2014 [facility] [address] [id number] [address] [place] [address], [place] [address] 21 Sep, 2014 [facility] [address] [id number] [address] [place] [address], [place] [address] 21 Sep, 2014 [facility] [address] [id number] [address] [place] [address], [place] [address] 15 Sep, 2014 [facility] [address] [id number] [address] [place] [address], [place] [address] 11 Sep, 2014 [facility] [address] [id number] [address] [place] [address], [place] [address] 09 Sep, 2014 [facility] [address] [id number] [address] [place] [address], [place] [address] 08 Sep, 2014 [facility] [address] [id number] [address] [place] [address], [place] [address] 03 Sep, 2014 [facility] [address] [id number] [address] [place] [address] [address] Apr, [facility] [address] [facility] [id number] [address] [place] [address] Mar, [facility] [address] [facility] [id number] [address] [place] [address] Mar, [facility] [address] [facility] [id number] [address] [place] [address] Mar, [facility] [address] [facility] [id number] [address] [place] [address] Mar, [facility] [address] [facility] [id number] [address] [place] [address] Mar, [facility] [address] [facility] [id number] [address] [place] [address] Mar, Diabetes mellitus 250.00 ; C OPD (chronic obstructive pulmonary disease) 496 ; Anxiety 300.00 and Arthritis 716.90 [facility] [address] [facility] [id number] [address] [place] [address] Feb, [facility] [address] [facility] [id number] [address] [place] [address] Feb, [facility] [address] [facility] [id number] [address] [place] [address] Feb, [facility] [address] [facility] [id number] [address] [place] [address] Feb, [facility] [address] [facility] [id number] [address] [place] [address] Jan, Seborrheic keratosis 702.19 and Nevus 216.9 [facility] [address] [facility] [id number] [address] [place] [address] Jan, [facility] [address] [facility] [id number] [address] [place] [address] Jan, Routine gynecological examin ation V72.31 ; Breast cancer screening V76.10 ; Hot flashes 627.2 ; Atypical nevi 216.9 and Constipation 564.00 [facility] [address] [id number] [address] [place] [address], [place] [address] Jan, [facility] [address] [id number] [address] [place] [address], [place] [address] December, [facility] [address] [id number] [address] [place] [address], [place] [address] December, [facility] [address] [id number] [address] [place] [address], [place] [address] Nov, [facility] [address] [id number] [address] [place] [address], [place] [address] Nov, [facility] [address] [id number] [address] [place] [address], [place] [address] Oct, [facility] [address] [id number] [address] [place] [address], [place] [address] 23 Oct, 2014 [facility] [address] [id number] [address] [place] [address], [place] [address] 18 Oct, 2014 [facility] [address] [id number] [address] [place] [address], [place] [address] 18 Oct, 2014 [facility] [address] [id number] [address] [place] [address], [place] [address] 17 Oct, 2014 [facility] [address] [id number] [address] [place] [address], [place] [address] 17 Oct, 2014 [facility] [address] [id number] [address] [place] [address] 16 Oct, 2014 [facility] [address] [id number] [address] [place] [address], [place] [address] 16 Oct, 2014 [facility] [address] [id number] [address] [place] [address], [place] [address] 11 Oct, 2014 [facility] [address] [id number] [address] [place] [address], [place] [address] 11 Oct, 2014 [facility] [address] [id number] [address] [place] [address], [place] [address] Sep, 2014 [facility] [address] [id number] [address] [place] [address], [place] [address] Sep, 2014 [facility] [address] [id number] [address] [place] [address], [place] [address] 19 Sep, 2014 [facility] [address] [id number] [address] [place] [address], [place] [address] 18 Sep, 2014 [facility] [address] [id number] [address] [place] [address], [place] [address] Sep, 2014 [facility] [address] [id number] [address] [place] [address], [place] [address] Sep, 2014 [facility] [address] [id number] [address] [place] [address], [place] [address] Sep, 2014 [facility] [address] [id number] [address] [place] [address], [place] [address] Aug, [facility] [address] [id number] [address] [place] [address], [place] [address] Aug, [facility] [address] [id number] [address] [place] [address], [place] [address] Aug, [facility] [address] [id number] [address] [place] [address], [place] [address] Aug, [facility] [address] [id number] [address] [place] [address], [place] [address] Aug, [facility] [address] [id number] [address] [place] [address], [place] [address] Aug, [facility] [address] [id number] [address] [place] [address], [place] [address] Jul, [facility] [address] [id number] [address] [place] [address], [place] [address] Jul, [facility] [address] [id number] [address] [place] [address], [place] [address] Jul, [facility] [address] [id number] [address] [place] [address], [place] [address] Jul, [facility] [address] [id number] [address] [place] [address], [place] [address] Jul, [facility] [address] [id number] [address] [place] [address], [place] [address] Jun, [facility] [address] [id number] [address] [place] [address], [place] [address] Jun, [facility] [address] [id number] [address] [place] [address], [place] [address] Jun, [facility] [address] [id number] [address] [place] [address], [place] [address] Jun, [facility] [address] [id number] [address] [place] [address], [place] [address] Jun, [facility] [address] [id number] [address] [place] [address], [place] [address] Jun, [facility] [address] [id number] [address] [place] [address], [place] [address] May, [facility] [address] [id number] [address] [place] [address], [place] [address] May, [facility] [address] [id number] [address] [place] [address], [place] [address] May, [facility] [address] [id number] [address] [place] [address] May, [facility] [address] [id number] [address] [place] [address], [place] [address] May, [facility] [address] [id number] [address] [place] [address], [place] [address] May, [facility] [address] [id number] [address] [place] [address], [place] [address] May, [facility] [address] [id number] [address] [place] [address], [place] [address] May, [facility] [address] [id number] [address] [place] [address], [place] [address] May, [facility] [address] [id number] [address] [place] [address], [place] [address] Apr, [facility] [address] [id number] [address] [place] [address], [place] [address] Apr, [facility] [address] [id number] [address] [place] [address], [place] [address] Apr, [facility] [address] [id number] [address] [place] [address], [place] [address] Apr, [facility] [address] [id number] [address] [place] [address], [place] [address] Mar, [facility] [address] [id number] [address] [place] [address], [place] [address] Mar, [facility] [address] [id number] [address] [place] [address], [place] [address] Mar, [facility] [address] [id number] [address] [place] [address], [place] [address] Mar, [facility] [address] [id number] [address] [place] [address], [place] [address] Mar, [facility] [address] [id number] [address] [place] [address], [place] [address] Mar, [facility] [address] [id number] [address] [place] [address], [place] [address] Feb, [facility] [address] [id number] [address] [place] [address], [place] [address] Feb, [facility] [address] [id number] [address] [place] [address], [place] [address] Feb, [facility] [address] [id number] [address] [place] [address], [place] [address] Feb, [facility] [address] [id number] [address] [place] [address] Feb, 2013 [facility] [address] [id number] [address] [place] [address] Feb, [facility] [address] [id number] [address] [place] [address], [place] [address] Feb, 2013 [facility] [address] [id number] [address] [place] [address], [place] [address] Feb, 2013 [facility] [address] [id number] [address] [place] [address], [place] [address] Feb, 2013 [facility] [address] [id number] [address] [place] [address], [place] [address] Feb, [facility] [address] [id number] [address] [place] [address], [place] [address] Feb, [facility] [address] [id number] [address] [place] [address], [place] [address] Feb, [facility] [address] [id number] [address] [place] [address], [place] [address] Jan, [facility] [address] [id number] [address] [place] [address], [place] [address] Jan, [facility] [address] [id number] [address] [place] [address], [place] [address] Jan, [facility] [address] [id number] [address] [place] [address], [place] [address] Jan, [facility] [address] [id number] [address] [place] [address], [place] [address] Jan, [facility] [address] [id number] [address] [place] [address], [place] [address] Jan, [facility] [address] [id number] [address] [place] [address], [place] [address] Jan, [facility] [address] [id number] [address] [place] [address], [place] [address] Jan, [facility] [address] [id number] [address] [place] [address], [place] [address] Jan, [facility] [address] [id number] [address] [place] [address], [place] [address] Jan, [facility] [address] [id number] [address] [place] [address], [place] [address] Jan, [facility] [address] [id number] [address] [place] [address], [place] [address] Jan, [facility] [address] [id number] [address] [place] [address], [place] [address] Jan, [facility] [address] [id number] [address] [place] [address], [place] [address] Jan, [facility] [address] [id number] [address] [place] [address], [place] [address] Jan, [facility] [address] [id number] [address] [place] [address], [place] [address] Jan, [facility] [address] [id number] [address] [place] [address], [place] [address] Jan, [facility] [address] [id number] [address] [place] [address], [place] [address] December, [facility] [address] [id number] [address] [place] [address], [place] [address] December, [facility] [address] [id number] [address] [place] [address], [place] [address] December, [facility] [address] [id number] [address] [place] [address], [place] [address] December, [facility] [address] [id number] [address] [place] [address], [place] [address] December, [facility] [address] [id number] [address] [place] [address], [place] [address] December, [facility] [address] [id number] [address] [place] [address], [place] [address] Nov, [facility] [address] [id number] [address] [place] [address], [place] [address] Nov, [facility] [address] [id number] [address] [place] [address], [place] [address] Nov, [facility] [address] [id number] [address] [place] [address], [place] [address] Nov, [facility] [address] [id number] [address] [place] [address], [place] [address] Nov, [facility] [address] [id number] [address] [place] [address], [place] [address] Nov, [facility] [address] [id number] [address] [place] [address], [place] [address] Nov, [facility] [address] [id number] [address] [place] [address], [place] [address] Nov, [facility] [address] [id number] [address] [place] [address], [place] [address] Nov, [facility] [address] [id number] [address] [place] [address], [place] [address] Nov, [facility] [address] [id number] [address] [place] [address], [place] [address] Nov, [facility] [address] [id number] [address] [place] [address], [place] [address] Nov, [facility] [address] [id number] [address] [place] [address], [place] [address] Nov, [facility] [address] [id number] [address] [place] [address], [place] [address] Nov, [facility] [address] [id number] [address] [place] [address], [place] [address] Nov, [facility] [address] [id number] [address] [place] [address], [place] [address] Nov, [facility] [address] [id number] [address] [place] [address], [place] [address] Oct, [facility] [address] [id number] [address] [place] [address], [place] [address] Oct, [facility] [address] [id number] [address] [place] [address], [place] [address] Oct, [facility] [address] [id number] [address] [place] [address], [place] [address] Oct, [facility] [address] [id number] [address] [place] [address], [place] [address] Oct, [facility] [address] [id number] [address] [place] [address], [place] [address] Oct, [facility] [address] [id number] [address] [place] [address], [place] [address] Oct, [facility] [address] [id number] [address] [place] [address], [place] [address] Oct, [facility] [address] [id number] [address] [place] [address], [place] [address] Sep, [facility] [address] [id number] [address] [place] [address], [place] [address] Sep, [facility] [address] [id number] [address] [place] [address], [place] [address] Sep, [facility] [address] [id number] [address] [place] [address], [place] [address] Sep, [facility] [address] [id number] [address] [place] [address], [place] [address] Sep, [facility] [address] [id number] [address] [place] [address], [place] [address] Sep, [facility] [address] [id number] [address] [place] [address], [place] [address] Aug, [facility] [address] [id number] [address] [place] [address], [place] [address] Aug, [facility] [address] [id number] [address] [place] [address], [place] [address] Aug, [facility] [address] [id number] [address] [place] [address], [place] [address] Aug, [facility] [address] [id number] [address] [place] [address], [place] [address] Aug, [facility] [address] [id number] [address] [place] [address], [place] [address] Aug, [facility] [address] [id number] [address] [place] [address], [place] [address] Aug, [facility] [address] [id number] [address] [place] [address], [place] [address] Aug, [facility] [address] [id number] [address] [place] [address], [place] [address] Jul, [facility] [address] [id number] [address] [place] [address], [place] [address] Jul, [facility] [address] [id number] [address] [place] [address], [place] [address] Jul, [facility] [address] [id number] [address] [place] [address], [place] [address] Jul, [facility] [address] [id number] [address] [place] [address], [place] [address] Jul, [facility] [address] [id number] [address] [place] [address], [place] [address] Jul, [facility] [address] [id number] [address] [place] [address], [place] [address] Jul, [facility] [address] [id number] [address] [place] [address], [place] [address] Jul, [facility] [address] [id number] [address] [place] [address], [place] [address] Jul, [facility] [address] [id number] [address] [place] [address], [place] [address] 14 Jun, 2013 [facility] [address] [id number] [address] [place] [address], [place] [address] 14 Jun, 2013 [facility] [address] [id number] [address] [place] [address], [place] [address] Jun, [facility] [address] [id number] [address] [place] [address], [place] [address] Jun, [facility] [address] [id number] [address] [place] [address], [place] [address] Jun, [facility] [address] [id number] [address] [place] [address], [place] [address] Jun, [facility] [address] [id number] [address] [place] [address], [place] [address] 31 May, 2013 [facility] [address] [id number] [address] [place] [address], [place] [address] 31 May, 2013 [facility] [address] [id number] [address] [place] [address], [place] [address] 17 May, 2013 [facility] [address] [id number] [address] [place] [address], [place] [address] 17 May, 2013 [facility] [address] [id number] [address] [place] [address], [place] [address] 14 May, 2013 [facility] [address] [id number] [address] [place] [address], [place] [address] 14 May, 2013 [facility] [address] [id number] [address] [place] [address], [place] [address] 10 May, 2013 [facility] [address] [id number] [address] [place] [address], [place] [address] 10 May, 2013 [facility] [address] [id number] [address] [place] [address] 07 May, 2013 [facility] [address] [id number] [address] [place] [address] 20 Sep, 2012 [facility] [address] [id number] [address] [place] [address], [place] [address] 19 Sep, 2012 [facility] [address] [id number] [address] [place] [address], [place] [address] 12 Apr, 2012 [facility] [address] [id number] [address] [place] [address], [place] [address] 24 Sep, 2011 [facility] [address] [id number] [address] [place] [address], [place] [address] 21 Sep, 2011 [facility] [address] [id number] [address] [place] [address], [place] [address] 21 Apr, 2011 [facility] [address] [id number] [address] [place] [address], [place] [address] 14 Apr, 2011 [facility] [address] [id number] [address] [place] [address], [place] [address] 10 Apr, 2011 [facility] [address] [id number] [address] [place] [address], [place] [address] 06 Apr, 2011 [facility] [address] [id number] [address] [place] [address], [place] [address] 04 Apr, 2011 [facility] [address] [id number] [address] [place] [address], [place] [address] 31 Mar, 2012 [facility] [address] [id number] [address] [place] [address], [place] [address] 28 Mar, 2012 [facility] [address] [id number] [address] [place] [address], [place] [address] 27 Mar, 2012 [facility] [address] [id number] [address] [place] [address], [place] [address] 10 Mar, 2012 [facility] [address] [id number] [address] [place] [address], [place] [id number] 08 Mar, 2012 [facility] [address] [id number] [address] [place] [address], [place] [address] 03 Mar, 2012 [facility] [address] [id number] [address] [place] [address], [place] [address] Feb, [facility] [address] [id number] [address] [place] [address], [place] [address] Feb, [facility] [address] [id number] [address] [place] [address], [place] [address] Feb, [facility] [address] [id number] [address] [place] [address], [place] [address] Jan, [facility] [address] [id number] [address] [place] [address], [place] [address] Jan, [facility] [address] [id number] [address] [place] [address], [place] [address] Jan, [facility] [address] [id number] [address] [place] [address], [place] [address] Jan, [facility] [address] [id number] [address] [place] [address], [place] [address] Jan, [facility] [address] [id number] [address] [place] [address], [place] [address] Jan, [facility] [address] [id number] [address] [place] [address], [place] [address] Jan, [facility] [address] [id number] [address] [place] [address], [place] [address] Jan, [facility] [address] [id number] [address] [place] [address], [place] [address] December, [facility] [address] [id number] [address] [place] [address], [place] [address] December, [facility] [address] [id number] [address] [place] [address], [place] [address] December, [facility] [address] [id number] [address] [place] [address], [place] [address] December, [facility] [address] [id number] [address] [place] [address], [place] [address] December, [facility] [address] [id number] [address] [place] [address], [place] [address] December, [facility] [address] [id number] [address] [place] [address], [place] [address] 13 Nov, 2011 [facility] [address] [id number] [address] [place] [address], [place] [address] 13 Nov, 2011 [facility] [address] [id number] [address] [place] [address], [place] [address] Nov, [facility] [address] [id number] [address] [place] [address], [place] [address] Nov, [facility] [address] [id number] [address] [place] [address], [place] [address] Nov, [facility] [address] [id number] [address] [place] [address], [place] [address] Oct, [facility] [address] [id number] [address] [place] [address], [place] [address] 17 Sep, 2011 [facility] [address] [id number] [address] [place] [address], [place] [address] Aug, [facility] [address] [id number] [address] [place] [address], [place] [address] Aug, [facility] [address] [id number] [address] [place] [address], [place] [address] Aug, [facility] [address] [id number] [address] [place] [address], [place] [address] Aug, [facility] [address] [id number] [address] [place] [address], [place] [address] Aug, [facility] [address] [id number] [address] [place] [address], [place] [address] Jul, [facility] [address] [id number] [address] [place] [address], [place] [address] Jul, [facility] [address] [id number] [address] [place] [address], [place] [address] Jun, [facility] [address] [id number] [address] [place] [address], [place] [address] Jun, [facility] [address] [id number] [address] [place] [address], [place] [address] Jun, [facility] [address] [id number] [address] [place] [address], [place] [address] May, [facility] [address] [id number] [address] [place] [address], [place] [address] May, [facility] [address] [id number] [address] [place] [address], [place] [address] 16 Oct, 2010 [facility] [address] [id number] [address] [place] [address], [place] [address] Oct, [facility] [address] [id number] [address] [place] [address], [place] [address] 29 Jul, 2010 [facility] [address] [id number] [address] [place] [address], [place] [address] 08 Jul, 2010 [facility] [address] [id number] [address] [place] [address], [place] [address] Jul, [facility] [address] [id number] [address] [place] [address], [place] [address] Jul, [facility] [address] [id number] [address] [place] [address], [place] [address] Jul, [facility] [address] [id number] [address] [place] [address], [place] [address] Jun, [facility] [address] [id number] [address] [place] [address], [place] [address] Jun, [facility] [address] [id number] [address] [place] [address], [place] [address] Jun, [facility] [address] [id number] [address] [place] [address], [place] [address] May, [facility] [address] [facility] [id number] [address] [place] [address] 16 Mar, 2010 IMMUNIZATIONS No Known Immunizations [...]
--- OUTSIDE RECORDS SUMMARY | 2020-03-12 09:33 | XMS REPORT ---
Author Author Caren LYLE Organization [facility] Address [address] [place] [address] Care Team Providers Care Financial Processing Clerk Name Role Phone LAURIE LYLE Unavailable PROBLEMS Type Condition ICD9-CM Code NTA33-WS Code Onset Dates Condition S tatus SNOMED Code Problem COPD (chronic obstructive pulmonary disease) J44.9 Active 35726450 Problem Diabetes E11.9 Active 94117126 Problem Diabetic neuropathy E11.40 Active 599001570 Problem Arthritis M19.90 Active 6985009 ALLERGIES No Information ENCOUNTERS Encounter Location Date Diagnosis [facility] [address] [facility] [id number] [address] [place] [address] December, [facility] [address] [id number] [address] [place] [address] Aug, Arthritis M19.90 [facility] [address] [facility] [id number] [address] [place] [address] Jul, [facility] [address] [facility] [id number] [address] [place] [address] Jul, [facility] [address] [facility] [id number] [address] [place] [address] Jul, [facility] [address] [id number] [address] [place] [address] Jul, [facility] [address] [facility] [id number] [address] [place] [address] Jul, Diabetes E11.9 ; Diabetic ne uropathy E11.40 ; Arthritis M19.90 and COPD (chronic obstructive pulmonary disease) J44.9 [facility] [address] [facility] [id number] [address] [place] [address] Jul, [facility] [address] [id number] [address] [place] [address], [place] [address] 23 Jun, 2015 [facility] [address] [id number] [address] [place] [address], [place] [address] 23 Jun, 2015 [facility] [address] [id number] [address] [place] [address], [place] [address] 17 Jun, 2014 [facility] [address] [id number] [address] [place] [address], [place] [address] 10 Jun, 2014 [facility] [address] [id number] [address] [place] [address], [place] [address] 15 May, 2015 [facility] [address] [id number] [address] [place] [address], [place] [address] 13 May, 2015 [facility] [address] [id number] [address] [place] [address], [place] [address] 07 May, 2015 [facility] [address] [id number] [address] [place] [address], [place] [address] 22 Sep, 2014 [facility] [address] [id number] [address] [place] [address], [place] [address] 21 Sep, 2014 [facility] [address] [id number] [address] [place] [address], [place] [address] 21 Sep, 2014 [facility] [address] [id number] [address] [place] [address], [place] [address] 15 Sep, 2014 [facility] [address] [id number] [address] [place] [address], [place] [address] 11 Sep, 2014 [facility] [address] [id number] [address] [place] [address], [place] [address] 09 Sep, 2014 [facility] [address] [id number] [address] [place] [address], [place] [address] 08 Sep, 2014 [facility] [address] [id number] [address] [place] [address], [place] [address] 03 Sep, 2014 [facility] [address] [id number] [address] [place] [address] [address] Apr, [facility] [address] [facility] [id number] [address] [place] [address] Mar, [facility] [address] [facility] [id number] [address] [place] [address] Mar, [facility] [address] [facility] [id number] [address] [place] [id number] Mar, [facility] [address] [facility] [id number] [address] [place] [address] Mar, [facility] [address] [facility] [id number] [address] [place] [address] Mar, [facility] [address] [facility] [id number] [address] [place] [address] Mar, Diabetes mellitus 250.00 ; C OPD (chronic obstructive pulmonary disease) 496 ; Anxiety 300.00 and Arthritis 716.90 [facility] [address] [facility] [id number] [address] [place] [id number] Feb, [facility] [address] [facility] [id number] [address] [place] [address] Feb, [facility] [address] [facility] [id number] [address] [place] [address] Feb, [facility] [address] [facility] [id number] [address] [place] [address] Feb, [facility] [address] [facility] [id number] [address] [place] [address] Jan, Seborrheic keratosis 702.19 and Nevus 216.9 [facility] [address] [facility] [id number] [address] [place] [address] Jan, [facility] [address] [facility] [id number] [address] [place] [address] Jan, Routine gynecological examin ation V72.31 ; Breast cancer screening V76.10 ; Hot flashes 627.2 ; Atypical nevi 216.9 and Constipation 564.00 [facility] [address] [id number] [address] [place] [address], [place] [address] Jan, [facility] [address] [id number] [address] [place] [address], [place] [address] December, [facility] [address] [id number] [address] [place] [address], [place] [address] December, [facility] [address] [id number] [address] [place] [address], [place] [address] Nov, [facility] [address] [id number] [address] [place] [address], [place] [address] Nov, [facility] [address] [id number] [address] [place] [address], [place] [address] Oct, [facility] [address] [id number] [address] [place] [address], [place] [address] 23 Oct, 2014 [facility] [address] [id number] [address] [place] [address], [place] [address] 18 Oct, 2014 [facility] [address] [id number] [address] [place] [address], [place] [address] 18 Oct, 2014 [facility] [address] [id number] [address] [place] [address], [place] [address] 17 Oct, 2014 [facility] [address] [id number] [address] [place] [address], [place] [address] 17 Oct, 2014 [facility] [address] [id number] [address] [place] [address] 16 Oct, 2014 [facility] [address] [id number] [address] [place] [address], [place] [address] 16 Oct, 2014 [facility] [address] [id number] [address] [place] [address], [place] [address] 11 Oct, 2014 [facility] [address] [id number] [address] [place] [address], [place] [address] 11 Oct, 2014 [facility] [address] [id number] [address] [place] [address], [place] [address] Sep, 2014 [facility] [address] [id number] [address] [place] [address], [place] [address] Sep, 2014 [facility] [address] [id number] [address] [place] [address], [place] [address] 19 Sep, 2014 [facility] [address] [id number] [address] [place] [address], [place] [address] 18 Sep, 2014 [facility] [address] [id number] [address] [place] [address], [place] [address] Sep, 2014 [facility] [address] [id number] [address] [place] [address], [place] [address] Sep, 2014 [facility] [address] [id number] [address] [place] [address], [place] [address] Sep, 2014 [facility] [address] [id number] [address] [place] [address], [place] [address] Aug, [facility] [address] [id number] [address] [place] [address], [place] [address] Aug, [facility] [address] [id number] [address] [place] [address], [place] [address] Aug, [facility] [address] [id number] [address] [place] [address], [place] [address] Aug, [facility] [address] [id number] [address] [place] [address], [place] [address] Aug, [facility] [address] [id number] [address] [place] [address], [place] [address] Aug, [facility] [address] [id number] [address] [place] [address], [place] [address] Jul, [facility] [address] [id number] [address] [place] [address], [place] [address] Jul, [facility] [address] [id number] [address] [place] [address], [place] [address] Jul, [facility] [address] [id number] [address] [place] [address], [place] [address] Jul, [facility] [address] [id number] [address] [place] [address], [place] [address] Jul, [facility] [address] [id number] [address] [place] [address], [place] [address] Jun, [facility] [address] [id number] [address] [place] [address], [place] [address] Jun, [facility] [address] [id number] [address] [place] [address], [place] [address] Jun, [facility] [address] [id number] [address] [place] [address], [place] [address] Jun, [facility] [address] [id number] [address] [place] [address], [place] [address] Jun, [facility] [address] [id number] [address] [place] [address], [place] [address] Jun, [facility] [address] [id number] [address] [place] [address], [place] [address] May, [facility] [address] [id number] [address] [place] [address], [place] [address] May, [facility] [address] [id number] [address] [place] [address], [place] [address] May, [facility] [address] [id number] [address] [place] [address] May, [facility] [address] [id number] [address] [place] [address], [place] [address] May, [facility] [address] [id number] [address] [place] [address], [place] [address] May, [facility] [address] [id number] [address] [place] [address], [place] [address] May, [facility] [address] [id number] [address] [place] [address], [place] [address] May, [facility] [address] [id number] [address] [place] [address], [place] [address] May, [facility] [address] [id number] [address] [place] [address], [place] [address] Apr, [facility] [address] [id number] [address] [place] [address], [place] [address] Apr, [facility] [address] [id number] [address] [place] [address], [place] [address] Apr, [facility] [address] [id number] [address] [place] [address], [place] [address] Apr, [facility] [address] [id number] [address] [place] [address], [place] [address] Mar, [facility] [address] [id number] [address] [place] [address], [place] [address] Mar, [facility] [address] [id number] [address] [place] [address], [place] [address] Mar, [facility] [address] [id number] [address] [place] [address], [place] [address] Mar, [facility] [address] [id number] [address] [place] [address], [place] [address] Mar, [facility] [address] [id number] [address] [place] [address], [place] [address] Mar, [facility] [address] [id number] [address] [place] [address], [place] [address] Feb, [facility] [address] [id number] [address] [place] [address], [place] [address] Feb, [facility] [address] [id number] [address] [place] [address], [place] [address] Feb, [facility] [address] [id number] [address] [place] [address], [place] [address] Feb, [facility] [address] [id number] [address] [place] [address] Feb, 2013 [facility] [address] [id number] [address] [place] [address] Feb, [facility] [address] [id number] [address] [place] [address], [place] [address] Feb, 2013 [facility] [address] [id number] [address] [place] [address], [place] [address] Feb, 2013 [facility] [address] [id number] [address] [place] [address], [place] [address] Feb, 2013 [facility] [address] [id number] [address] [place] [address], [place] [address] Feb, [facility] [address] [id number] [address] [place] [address], [place] [address] Feb, [facility] [address] [id number] [address] [place] [address], [place] [address] Feb, [facility] [address] [id number] [address] [place] [address], [place] [address] Jan, [facility] [address] [id number] [address] [place] [address], [place] [address] Jan, [facility] [address] [id number] [address] [place] [address], [place] [address] Jan, [facility] [address] [id number] [address] [place] [address], [place] [address] Jan, [facility] [address] [id number] [address] [place] [address], [place] [address] Jan, [facility] [address] [id number] [address] [place] [address], [place] [address] Jan, [facility] [address] [id number] [address] [place] [address], [place] [address] Jan, [facility] [address] [id number] [address] [place] [address], [place] [address] Jan, [facility] [address] [id number] [address] [place] [address], [place] [address] Jan, [facility] [address] [id number] [address] [place] [address], [place] [address] Jan, [facility] [address] [id number] [address] [place] [address], [place] [address] Jan, [facility] [address] [id number] [address] [place] [address], [place] [address] Jan, [facility] [address] [id number] [address] [place] [address], [place] [address] Jan, [facility] [address] [id number] [address] [place] [address], [place] [address] Jan, [facility] [address] [id number] [address] [place] [address], [place] [address] Jan, [facility] [address] [id number] [address] [place] [address], [place] [address] Jan, [facility] [address] [id number] [address] [place] [address], [place] [address] Jan, [facility] [address] [id number] [address] [place] [address], [place] [address] December, [facility] [address] [id number] [address] [place] [address], [place] [address] December, [facility] [address] [id number] [address] [place] [address], [place] [address] December, [facility] [address] [id number] [address] [place] [address], [place] [address] December, [facility] [address] [id number] [address] [place] [address], [place] [address] December, [facility] [address] [id number] [address] [place] [address], [place] [address] December, [facility] [address] [id number] [address] [place] [address], [place] [address] Nov, [facility] [address] [id number] [address] [place] [address], [place] [address] Nov, [facility] [address] [id number] [address] [place] [address], [place] [address] Nov, [facility] [address] [id number] [address] [place] [address], [place] [address] Nov, [facility] [address] [id number] [address] [place] [address], [place] [address] Nov, [facility] [address] [id number] [address] [place] [address], [place] [address] Nov, [facility] [address] [id number] [address] [place] [address], [place] [address] Nov, [facility] [address] [id number] [address] [place] [address], [place] [address] Nov, [facility] [address] [id number] [address] [place] [address], [place] [address] Nov, [facility] [address] [id number] [address] [place] [address], [place] [address] Nov, [facility] [address] [id number] [address] [place] [address], [place] [address] Nov, [facility] [address] [id number] [address] [place] [address], [place] [address] Nov, [facility] [address] [id number] [address] [place] [address], [place] [address] Nov, [facility] [address] [id number] [address] [place] [address], [place] [address] Nov, [facility] [address] [id number] [address] [place] [address], [place] [address] Nov, [facility] [address] [id number] [address] [place] [address], [place] [address] Nov, [facility] [address] [id number] [address] [place] [address], [place] [address] Oct, [facility] [address] [id number] [address] [place] [address], [place] [address] Oct, [facility] [address] [id number] [address] [place] [address], [place] [address] Oct, [facility] [address] [id number] [address] [place] [address], [place] [address] Oct, [facility] [address] [id number] [address] [place] [address], [place] [address] Oct, [facility] [address] [id number] [address] [place] [address], [place] [address] Oct, [facility] [address] [id number] [address] [place] [address], [place] [address] Oct, [facility] [address] [id number] [address] [place] [address], [place] [address] Oct, [facility] [address] [id number] [address] [place] [address], [place] [address] Sep, [facility] [address] [id number] [address] [place] [address], [place] [address] Sep, [facility] [address] [id number] [address] [place] [address], [place] [address] Sep, [facility] [address] [id number] [address] [place] [address], [place] [address] Sep, [facility] [address] [id number] [address] [place] [address], [place] [address] Sep, [facility] [address] [id number] [address] [place] [address], [place] [address] Sep, [facility] [address] [id number] [address] [place] [address], [place] [address] Aug, [facility] [address] [id number] [address] [place] [address], [place] [address] Aug, [facility] [address] [id number] [address] [place] [address], [place] [address] Aug, [facility] [address] [id number] [address] [place] [address], [place] [address] Aug, [facility] [address] [id number] [address] [place] [address], [place] [address] Aug, [facility] [address] [id number] [address] [place] [address], [place] [address] Aug, [facility] [address] [id number] [address] [place] [address], [place] [address] Aug, [facility] [address] [id number] [address] [place] [address], [place] [address] Aug, [facility] [address] [id number] [address] [place] [address], [place] [address] Jul, [facility] [address] [id number] [address] [place] [address], [place] [address] Jul, [facility] [address] [id number] [address] [place] [address], [place] [address] Jul, [facility] [address] [id number] [address] [place] [address], [place] [address] Jul, [facility] [address] [id number] [address] [place] [address], [place] [address] Jul, [facility] [address] [id number] [address] [place] [address], [place] [address] Jul, [facility] [address] [id number] [address] [place] [address], [place] [address] Jul, [facility] [address] [id number] [address] [place] [address], [place] [address] Jul, [facility] [address] [id number] [address] [place] [address], [place] [address] Jul, [facility] [address] [id number] [address] [place] [address], [place] [address] 14 Jun, 2013 [facility] [address] [id number] [address] [place] [address], [place] [address] 14 Jun, 2013 [facility] [address] [id number] [address] [place] [address], [place] [address] Jun, [facility] [address] [id number] [address] [place] [address], [place] [address] Jun, [facility] [address] [id number] [address] [place] [address], [place] [address] Jun, [facility] [address] [id number] [address] [place] [address], [place] [address] Jun, [facility] [address] [id number] [address] [place] [address], [place] [address] 31 May, 2013 [facility] [address] [id number] [address] [place] [address], [place] [address] 31 May, 2013 [facility] [address] [id number] [address] [place] [address], [place] [address] 17 May, 2013 [facility] [address] [id number] [address] [place] [address], [place] [address] 17 May, 2013 [facility] [address] [id number] [address] [place] [address], [place] [address] 14 May, 2013 [facility] [address] [id number] [address] [place] [address], [place] [address] 14 May, 2013 [facility] [address] [id number] [address] [place] [address], [place] [address] 10 May, 2013 [facility] [address] [id number] [address] [place] [address], [place] [address] 10 May, 2013 [facility] [address] [id number] [address] [place] [address] 07 May, 2013 [facility] [address] [id number] [address] [place] [address] 20 Sep, 2012 [facility] [address] [id number] [address] [place] [address], [place] [address] 19 Sep, 2012 [facility] [address] [id number] [address] [place] [address], [place] [address] 12 Apr, 2012 [facility] [address] [id number] [address] [place] [address], [place] [address] 24 Sep, 2011 [facility] [address] [id number] [address] [place] [address], [place] [address] 21 Sep, 2011 [facility] [address] [id number] [address] [place] [address], [place] [address] 21 Apr, 2011 [facility] [address] [id number] [address] [place] [address], [place] [address] 14 Apr, 2011 [facility] [address] [id number] [address] [place] [address], [place] [address] 10 Apr, 2011 [facility] [address] [id number] [address] [place] [address], [place] [address] 06 Apr, 2011 [facility] [address] [id number] [address] [place] [address], [place] [address] 04 Apr, 2011 [facility] [address] [id number] [address] [place] [address], [place] [address] 31 Mar, 2012 [facility] [address] [id number] [address] [place] [address], [place] [address] 28 Mar, 2012 [facility] [address] [id number] [address] [place] [address], [place] [address] 27 Mar, 2012 [facility] [address] [id number] [address] [place] [address], [place] [address] 10 Mar, 2012 [facility] [facility] [address] [id number] [address] [place] [address], [place] [address] 08 Mar, 2012 [facility] [address] [id number] [address] [place] [address], [place] [address] 03 Mar, 2012 [facility] [address] [id number] [address] [place] [address], [place] [address] Feb, [facility] [address] [id number] [address] [place] [address], [place] [address] Feb, [facility] [address] [id number] [address] [place] [address], [place] [address] Feb, [facility] [address] [id number] [address] [place] [address], [place] [address] Jan, [facility] [address] [id number] [address] [place] [address], [place] [address] Jan, [facility] [address] [id number] [address] [place] [address], [place] [address] Jan, [facility] [address] [id number] [address] [place] [address], [place] [address] Jan, [facility] [address] [id number] [address] [place] [address], [place] [address] Jan, [facility] [address] [id number] [address] [place] [address], [place] [address] Jan, [facility] [address] [id number] [address] [place] [address], [place] [address] Jan, [facility] [address] [id number] [address] [place] [address], [place] [address] Jan, [facility] [address] [id number] [address] [place] [address], [place] [address] December, [facility] [address] [id number] [address] [place] [address], [place] [address] December, [facility] [address] [id number] [address] [place] [address], [place] [address] December, [facility] [address] [id number] [address] [place] [address], [place] [address] December, [facility] [address] [id number] [address] [place] [address], [place] [address] December, [facility] [address] [id number] [address] [place] [address], [place] [address] December, [facility] [address] [id number] [address] [place] [address], [place] [address] 13 Nov, 2011 [facility] [address] [id number] [address] [place] [address], [place] [address] 13 Nov, 2011 [facility] [address] [id number] [address] [place] [address], [place] [address] Nov, [facility] [address] [id number] [address] [place] [address], [place] [address] Nov, [facility] [address] [id number] [address] [place] [address], [place] [address] Nov, [facility] [address] [id number] [address] [place] [address], [place] [address] Oct, [facility] [address] [id number] [address] [place] [address], [place] [address] 17 Sep, 2011 [facility] [address] [id number] [address] [place] [address], [place] [address] Aug, [facility] [address] [id number] [address] [place] [address], [place] [address] Aug, [facility] [address] [id number] [address] [place] [address], [place] [address] Aug, [facility] [address] [id number] [address] [place] [address], [place] [address] Aug, [facility] [address] [id number] [address] [place] [address], [place] [address] Aug, [facility] [address] [id number] [address] [place] [address], [place] [address] Jul, [facility] [address] [id number] [address] [place] [address], [place] [address] Jul, [facility] [address] [id number] [address] [place] [address], [place] [address] Jun, [facility] [address] [id number] [address] [place] [address], [place] [address] Jun, [facility] [address] [id number] [address] [place] [address], [place] [address] Jun, [facility] [address] [id number] [address] [place] [address], [place] [address] May, [facility] [address] [id number] [address] [place] [address], [place] [address] May, [facility] [address] [id number] [address] [place] [address], [place] [address] 16 Oct, 2010 [facility] [address] [id number] [address] [place] [address], [place] [address] Oct, [facility] [address] [id number] [address] [place] [address], [place] [address] 29 Jul, 2010 [facility] [address] [id number] [address] [place] [address], [place] [address] 08 Jul, 2010 [facility] [address] [id number] [address] [place] [address], [place] [address] Jul, [facility] [address] [id number] [address] [place] [address], [place] [address] Jul, [facility] [address] [id number] [address] [place] [address], [place] [address] Jul, [facility] [address] [id number] [address] [place] [address], [place] [address] Jun, [facility] [address] [id number] [address] [place] [address], [place] [address] Jun, [facility] [address] [id number] [address] [place] [address], [place] [address] Jun, [facility] [address] [id number] [address] [place] [address], [place] [address] May, [facility] [address] [facility] [id number] [address] [place] [address] 16 Mar, 2010 IMMUNIZATIONS No Known Immunizations [...]
--- OUTSIDE RECORDS SUMMARY | 2020-03-12 09:33 | XMS REPORT ---
Author Author Caren LYLE Organization [facility] Address [address] [place] [address] Care Team Providers Care Management Internship Name Role Phone LAURIE LYLE Unavailable PROBLEMS Type Condition ICD9-CM Code AXH82-UN Code Onset Dates Condition S tatus SNOMED Code Problem COPD (chronic obstructive pulmonary disease) J44.9 Active 32941636 Problem Diabetes E11.9 Active 28247437 Problem Diabetic neuropathy E11.40 Active 158522696 Problem Arthritis M19.90 Active 4836178 ALLERGIES No Information ENCOUNTERS Encounter Location Date Diagnosis [facility] [address] [id number] [address] [place] [address] December, [facility] [address] [id number] [address] [place] [address] Aug, Arthritis M19.90 [facility] [address] [id number] [address] [place] [address] Jul, [facility] [address] [id number] [address] [place] [address] Jul, [facility] [address] [id number] [address] [place] [address] Jul, [facility] [address] [id number] [address] [place] [address] Jul, [facility] [address] [id number] [address] [place] [address] Jul, Diabetes E11.9 ; Diabetic ne uropathy E11.40 ; Arthritis M19.90 and COPD (chronic obstructive pulmonary disease) J44.9 [facility] [address] [id number] [address] [place] [address] Jul, [facility] [address] [id number] [address] [place] [address], [place] [address] 23 Jun, 2015 [facility] [address] [id number] [address] [place] [address], [place] [address] 23 Jun, 2015 [facility] [address] [id number] [address] [place] [address], [place] [address] 17 Jun, 2014 [facility] [address] [id number] [address] [place] [address], [place] [address] 10 Jun, 2014 [facility] [address] [id number] [address] [place] [address], [place] [address] 15 May, 2015 [facility] [address] [id number] [address] [place] [address], [place] [address] 13 May, 2015 [facility] [address] [id number] [address] [place] [address], [place] [address] 07 May, 2015 [facility] [address] [id number] [address] [place] [address], [place] [address] 22 Sep, 2014 [facility] [address] [id number] [address] [place] [address], [place] [address] 21 Sep, 2014 [facility] [address] [id number] [address] [place] [address], [place] [address] 21 Sep, 2014 [facility] [address] [id number] [address] [place] [address], [place] [address] 15 Sep, 2014 [facility] [address] [id number] [address] [place] [address], [place] [address] 11 Sep, 2014 [facility] [address] [id number] [address] [place] [address], [place] [address] 09 Sep, 2014 [facility] [address] [id number] [address] [place] [address], [place] [address] 08 Sep, 2014 [facility] [address] [id number] [address] [place] [address], [place] [address] 03 Sep, 2014 [facility] [address] [id number] [address] [place] [address] [address] Apr, [facility] [address] [id number] [address] [place] [address] Mar, [facility] [address] [id number] [address] [place] [address] Mar, [facility] [address] [id number] [address] [place] [address] Mar, [facility] [address] [id number] [address] [place] [address] Mar, [facility] [address] [id number] [address] [place] [address] Mar, [facility] [address] [id number] [address] [place] [address] Mar, Diabetes mellitus 250.00 ; C OPD (chronic obstructive pulmonary disease) 496 ; Anxiety 300.00 and Arthritis 716.90 [facility] [address] [id number] [address] [place] [address] Feb, [facility] [address] [id number] [address] [place] [address] Feb, [facility] [address] [id number] [address] [place] [address] Feb, [facility] [address] [id number] [address] [place] [address] Feb, [facility] [address] [id number] [address] [place] [address] Jan, Seborrheic keratosis 702.19 and Nevus 216.9 [facility] [address] [id number] [address] [place] [address] Jan, [facility] [address] [id number] [address] [place] [address] Jan, Routine gynecological examin ation V72.31 ; Breast cancer screening V76.10 ; Hot flashes 627.2 ; Atypical nevi 216.9 and Constipation 564.00 [facility] [address] [id number] [address] [place] [address], [place] [address] Jan, [facility] [address] [id number] [address] [place] [address], [place] [address] December, [facility] [address] [id number] [address] [place] [address], [place] [address] December, [facility] [address] [id number] [address] [place] [address], [place] [address] Nov, [facility] [address] [id number] [address] [place] [address], [place] [address] Nov, [facility] [address] [id number] [address] [place] [address], [place] [address] Oct, [facility] [address] [id number] [address] [place] [address], [place] [address] 23 Oct, 2014 [facility] [address] [id number] [address] [place] [address], [place] [address] 18 Oct, 2014 [facility] [address] [id number] [address] [place] [address], [place] [address] 18 Oct, 2014 [facility] [address] [id number] [address] [place] [address], [place] [address] 17 Oct, 2014 [facility] [address] [id number] [address] [place] [address], [place] [address] 17 Oct, 2014 [facility] [address] [id number] [address] [place] [address] 16 Oct, 2014 [facility] [address] [id number] [address] [place] [address], [place] [address] 16 Oct, 2014 [facility] [address] [id number] [address] [place] [address], [place] [address] 11 Oct, 2014 [facility] [address] [id number] [address] [place] [address], [place] [address] 11 Oct, 2014 [facility] [address] [id number] [address] [place] [address], [place] [address] Sep, 2014 [facility] [address] [id number] [address] [place] [address], [place] [address] Sep, 2014 [facility] [address] [id number] [address] [place] [address], [place] [address] 19 Sep, 2014 [facility] [address] [id number] [address] [place] [address], [place] [address] 18 Sep, 2014 [facility] [address] [id number] [address] [place] [address], [place] [address] Sep, 2014 [facility] [address] [id number] [address] [place] [address], [place] [address] Sep, 2014 [facility] [address] [id number] [address] [place] [address], [place] [address] Sep, 2014 [facility] [address] [id number] [address] [place] [address], [place] [address] Aug, [facility] [address] [id number] [address] [place] [address], [place] [address] Aug, [facility] [address] [id number] [address] [place] [address], [place] [address] Aug, [facility] [address] [id number] [address] [place] [address], [place] [address] Aug, [facility] [address] [id number] [address] [place] [address], [place] [address] Aug, [facility] [address] [id number] [address] [place] [address], [place] [address] Aug, [facility] [address] [id number] [address] [place] [address], [place] [address] Jul, [facility] [address] [id number] [address] [place] [address], [place] [address] Jul, [facility] [address] [id number] [address] [place] [address], [place] [address] Jul, [facility] [address] [id number] [address] [place] [address], [place] [address] Jul, [facility] [address] [id number] [address] [place] [address], [place] [address] Jul, [facility] [address] [id number] [address] [place] [address], [place] [address] Jun, [facility] [address] [id number] [address] [place] [address], [place] [address] Jun, [facility] [address] [id number] [address] [place] [address], [place] [address] Jun, [facility] [address] [id number] [address] [place] [address], [place] [address] Jun, [facility] [address] [id number] [address] [place] [address], [place] [address] Jun, [facility] [address] [id number] [address] [place] [address], [place] [address] Jun, [facility] [address] [id number] [address] [place] [address], [place] [address] May, [facility] [address] [id number] [address] [place] [address], [place] [address] May, [facility] [address] [id number] [address] [place] [address], [place] [address] May, [facility] [address] [id number] [address] [place] [address] May, [facility] [address] [id number] [address] [place] [address], [place] [address] May, [facility] [address] [id number] [address] [place] [address], [place] [address] May, [facility] [address] [id number] [address] [place] [address], [place] [address] May, [facility] [address] [id number] [address] [place] [address], [place] [address] May, [facility] [address] [id number] [address] [place] [address], [place] [address] May, [facility] [address] [id number] [address] [place] [address], [place] [address] Apr, [facility] [address] [id number] [address] [place] [address], [place] [address] Apr, [facility] [address] [id number] [address] [place] [address], [place] [address] Apr, [facility] [address] [id number] [address] [place] [address], [place] [address] Apr, [facility] [address] [id number] [address] [place] [address], [place] [address] Mar, [facility] [address] [id number] [address] [place] [address], [place] [address] Mar, [facility] [address] [id number] [address] [place] [address], [place] [address] Mar, [facility] [address] [id number] [address] [place] [address], [place] [address] Mar, [facility] [address] [id number] [address] [place] [address], [place] [address] Mar, [facility] [address] [id number] [address] [place] [address], [place] [address] Mar, [facility] [address] [id number] [address] [place] [address], [place] [address] Feb, [facility] [address] [id number] [address] [place] [address], [place] [address] Feb, [facility] [address] [id number] [address] [place] [address], [place] [address] Feb, [facility] [address] [id number] [address] [place] [address], [place] [address] Feb, [facility] [address] [id number] [facility] [place] [address] Feb, 2013 [facility] [address] [id number] [facility] [place] [place] [address] Feb, [facility] [address] [id number] [address] [place] [address], [place] [address] Feb, 2013 [facility] [address] [id number] [address] [place] [address], [place] [address] Feb, 2013 [facility] [address] [id number] [address] [place] [address], [place] [address] Feb, 2013 [facility] [address] [id number] [address] [place] [address], [place] [address] Feb, [facility] [address] [id number] [address] [place] [address], [place] [address] Feb, [facility] [address] [id number] [address] [place] [address], [place] [address] Feb, [facility] [address] [id number] [address] [place] [address], [place] [address] Jan, [facility] [address] [id number] [address] [place] [address], [place] [address] Jan, [facility] [address] [id number] [address] [place] [address], [place] [address] Jan, [facility] [address] [id number] [address] [place] [address], [place] [address] Jan, [facility] [address] [id number] [address] [place] [address], [place] [address] Jan, [facility] [address] [id number] [address] [place] [address], [place] [address] Jan, [facility] [address] [id number] [address] [place] [address], [place] [address] Jan, [facility] [address] [id number] [address] [place] [address], [place] [address] Jan, [facility] [address] [id number] [address] [place] [address], [place] [address] Jan, [facility] [address] [id number] [address] [place] [address], [place] [address] Jan, [facility] [address] [id number] [address] [place] [address], [place] [address] Jan, [facility] [address] [id number] [address] [place] [address], [place] [address] Jan, [facility] [address] [id number] [address] [place] [address], [place] [address] Jan, [facility] [address] [id number] [address] [place] [address], [place] [address] Jan, [facility] [address] [id number] [address] [place] [address], [place] [address] Jan, [facility] [address] [id number] [address] [place] [address], [place] [address] Jan, [facility] [address] [id number] [address] [place] [address], [place] [address] Jan, [facility] [address] [id number] [address] [place] [address], [place] [address] December, [facility] [address] [id number] [address] [place] [address], [place] [address] December, [facility] [address] [id number] [address] [place] [address], [place] [address] December, [facility] [address] [id number] [address] [place] [address], [place] [address] December, [facility] [address] [id number] [address] [place] [address], [place] [address] December, [facility] [address] [id number] [address] [place] [address], [place] [address] December, [facility] [address] [id number] [address] [place] [address], [place] [address] Nov, [facility] [address] [id number] [address] [place] [address], [place] [address] Nov, [facility] [address] [id number] [address] [place] [address], [place] [address] Nov, [facility] [address] [id number] [address] [place] [address], [place] [address] Nov, [facility] [address] [id number] [address] [place] [address], [place] [address] Nov, [facility] [address] [id number] [address] [place] [address], [place] [address] Nov, [facility] [address] [id number] [address] [place] [address], [place] [address] Nov, [facility] [address] [id number] [address] [place] [address], [place] [address] Nov, [facility] [address] [id number] [address] [place] [address], [place] [address] Nov, [facility] [address] [id number] [address] [place] [address], [place] [address] Nov, [facility] [address] [id number] [address] [place] [address], [place] [address] Nov, [facility] [address] [id number] [address] [place] [address], [place] [address] Nov, [facility] [address] [id number] [address] [place] [address], [place] [address] Nov, [facility] [address] [id number] [address] [place] [address], [place] [address] Nov, [facility] [address] [id number] [address] [place] [address], [place] [address] Nov, [facility] [address] [id number] [address] [place] [address], [place] [address] Nov, [facility] [address] [id number] [address] [place] [address], [place] [address] Oct, [facility] [address] [id number] [address] [place] [address], [place] [address] Oct, [facility] [address] [id number] [address] [place] [address], [place] [address] Oct, [facility] [address] [id number] [address] [place] [address], [place] [address] Oct, [facility] [address] [id number] [address] [place] [address], [place] [address] Oct, [facility] [address] [id number] [address] [place] [address], [place] [address] Oct, [facility] [address] [id number] [address] [place] [address], [place] [address] Oct, [facility] [address] [id number] [address] [place] [address], [place] [address] Oct, [facility] [address] [id number] [address] [place] [address], [place] [address] Sep, [facility] [address] [id number] [address] [place] [address], [place] [address] Sep, [facility] [address] [id number] [address] [place] [address], [place] [address] Sep, [facility] [address] [id number] [address] [place] [address], [place] [id number] Sep, [facility] [address] [id number] [address] [place] [address], [place] [address] Sep, [facility] [address] [id number] [address] [place] [address], [place] [address] Sep, [facility] [address] [id number] [address] [place] [address], [place] [address] Aug, [facility] [address] [id number] [address] [place] [address], [place] [address] Aug, [facility] [address] [id number] [address] [place] [address], [place] [address] Aug, [facility] [address] [id number] [address] [place] [address], [place] [address] Aug, [facility] [address] [id number] [address] [place] [address], [place] [address] Aug, [facility] [address] [id number] [address] [place] [address], [place] [id number] Aug, [facility] [address] [id number] [address] [place] [address], [place] [id number] Aug, [facility] [address] [id number] [address] [place] [address], [place] [address] Aug, [facility] [address] [id number] [address] [place] [address], [place] [address] Jul, [facility] [address] [id number] [address] [place] [address], [place] [address] Jul, [facility] [address] [id number] [address] [place] [address], [place] [address] Jul, [facility] [address] [id number] [address] [place] [address], [place] [address] Jul, [facility] [address] [id number] [address] [place] [address], [place] [address] Jul, [facility] [address] [id number] [address] [place] [address], [place] [address] Jul, [facility] [address] [id number] [address] [place] [address], [place] [address] Jul, [facility] [address] [id number] [address] [place] [address], [place] [id number] Jul, [facility] [address] [id number] [address] [place] [address], [place] [address] Jul, [facility] [address] [id number] [address] [place] [address], [place] [id number] 14 Jun, 2013 [facility] [address] [id number] [address] [place] [address], [place] [id number] 14 Jun, 2013 [facility] [address] [id number] [address] [place] [address], [place] [address] Jun, [facility] [address] [id number] [address] [place] [address], [place] [id number] Jun, [facility] [address] [id number] [address] [place] [address], [place] [address] Jun, [facility] [address] [id number] [address] [place] [address], [place] [address] Jun, [facility] [address] [id number] [address] [place] [address], [place] [id number] 31 May, 2013 [facility] [address] [id number] [address] [place] [address], [place] [id number] 31 May, 2013 [facility] [address] [id number] [address] [place] [address], [place] [address] 17 May, 2013 [facility] [address] [id number] [address] [place] [address], [place] [address] 17 May, 2013 [facility] [address] [id number] [address] [place] [address], [place] [address] 14 May, 2013 [facility] [address] [id number] [address] [place] [address], [place] [address] 14 May, 2013 [facility] [address] [id number] [address] [place] [address], [place] [address] 10 May, 2013 [facility] [address] [id number] [address] [place] [address], [place] [id number] 10 May, 2013 [facility] [address] [id number] [address] [place] [id number] 07 May, 2013 [facility] [address] [id number] [address] [place] [id number] 20 Sep, 2012 [facility] [address] [id number] [address] [place] [address], [place] [id number] 19 Sep, 2012 [facility] [address] [id number] [address] [place] [address], [place] [address] 12 Apr, 2012 [facility] [address] [id number] [address] [place] [address], [place] [id number] 24 Sep, 2011 [facility] [address] [id number] [address] [place] [address], [place] [address] 21 Sep, 2011 [facility] [address] [id number] [address] [place] [address], [place] [address] 21 Apr, 2011 [facility] [address] [id number] [address] [place] [address], [place] [address] 14 Apr, 2011 [facility] [address] [id number] [address] [place] [address], [place] [id number] 10 Apr, 2011 [facility] [address] [id number] [address] [place] [address], [place] [id number] 06 Apr, 2011 [facility] [address] [id number] [address] [place] [address], [place] [id number] 04 Apr, 2011 [facility] [address] [id number] [address] [place] [address], [place] [address] 31 Mar, 2012 [facility] [address] [id number] [address] [place] [address], [place] [id number] 28 Mar, 2012 [facility] [address] [id number] [address] [place] [address], [place] [id number] 27 Mar, 2012 [facility] [address] [id number] [address] [place] [address], [place] [id number] 10 Mar, 2012 [facility] [address] [id number] [address] [place] [address], [place] [id number] 08 Mar, 2012 [facility] [address] [id number] [address] [place] [address], [place] [id number] 03 Mar, 2012 [facility] [address] [id number] [address] [place] [address], [place] [address] Feb, [facility] [address] [id number] [address] [place] [address], [place] [id number] Feb, [facility] [address] [id number] [address] [place] [address], [place] [id number] Feb, [facility] [address] [id number] [address] [place] [address], [place] [address] Jan, [facility] [address] [id number] [address] [place] [address], [place] [id number] Jan, [facility] [address] [id number] [address] [place] [address], [place] [address] Jan, [facility] [address] [id number] [address] [place] [address], [place] [address] Jan, [facility] [address] [id number] [address] [place] [address], [place] [address] Jan, [facility] [address] [id number] [address] [place] [address], [place] [address] Jan, [facility] [address] [id number] [address] [place] [address], [place] [address] Jan, [facility] [address] [id number] [address] [place] [address], [place] [address] Jan, [facility] [address] [id number] [address] [place] [address], [place] [address] December, [facility] [address] [id number] [address] [place] [address], [place] [address] December, [facility] [address] [id number] [address] [place] [address], [place] [address] December, [facility] [address] [id number] [address] [place] [address], [place] [address] December, [facility] [address] [id number] [address] [place] [address], [place] [address] December, [facility] [address] [id number] [address] [place] [address], [place] [id number] December, [facility] [address] [id number] [address] [place] [address], [place] [address] 13 Nov, 2011 [facility] [address] [id number] [address] [place] [address], [place] [id number] 13 Nov, 2011 [facility] [address] [id number] [address] [place] [address], [place] [address] Nov, [facility] [address] [id number] [address] [place] [address], [place] [address] Nov, [facility] [address] [id number] [address] [place] [address], [place] [address] Nov, [facility] [address] [id number] [address] [place] [address], [place] [address] Oct, [facility] [address] [id number] [address] [place] [address], [place] [id number] 17 Sep, 2011 [facility] [address] [id number] [address] [place] [address], [place] [address] Aug, [facility] [address] [id number] [address] [place] [address], [place] [address] Aug, [facility] [address] [id number] [address] [place] [address], [place] [id number] Aug, [facility] [address] [id number] [address] [place] [address], [place] [id number] Aug, [facility] [address] [id number] [address] [place] [address], [place] [address] Aug, [facility] [address] [id number] [address] [place] [address], [place] [address] Jul, [facility] [address] [id number] [address] [place] [address], [place] [id number] Jul, [facility] [address] [id number] [address] [place] [address], [place] [id number] Jun, [facility] [address] [id number] [address] [place] [address], [place] [id number] Jun, [facility] [address] [id number] [address] [place] [address], [place] [address] Jun, [facility] [address] [id number] [address] [place] [address], [place] [address] May, [facility] [address] [id number] [address] [place] [address], [place] [address] May, [facility] [address] [id number] [address] [place] [address], [place] [id number] 16 Oct, 2010 [facility] [address] [id number] [address] [place] [address], [place] [address] Oct, [facility] [address] [id number] [address] [place] [address], [place] [id number] 29 Jul, 2010 [facility] [address] [id number] [address] [place] [address], [place] [id number] 08 Jul, 2010 [facility] [address] [id number] [address] [place] [address], [place] [address] Jul, [facility] [address] [id number] [address] [place] [address], [place] [address] Jul, [facility] [address] [id number] [address] [place] [address], [place] [address] Jul, [facility] [address] [id number] [address] [place] [address], [place] [address] Jun, [facility] [address] [id number] [address] [place] [address], [place] [address] Jun, [facility] [address] [id number] [address] [place] [address], [place] [address] Jun, [facility] [address] [id number] [address] [place] [address], [place] [id number] May, [facility] [place] [address] [id number] [address] [place] [address] 16 Mar, 2010 IMMUNIZATIONS No Known Immunizations [...]
--- OUTSIDE RECORDS SUMMARY | 2020-03-12 09:33 | XMS REPORT ---
Author Author Caren LYLE Organization [facility] Address [address] [place] [address] Care Team Providers Care Catalogue Clerk Name Role Phone LAURIE LYLE Unavailable PROBLEMS Type Condition ICD9-CM Code [id number] Code Onset Dates Condition S tatus SNOMED Code Problem COPD (chronic obstructive pulmonary disease) J44.9 Active 87450906 Problem Diabetes E11.9 Active 84887966 Problem Diabetic neuropathy E11.40 Active 269583904 Problem Arthritis M19.90 Active [id number] ALLERGIES No Information ENCOUNTERS Encounter Location Date Diagnosis [facility] [address] [facility] [id number] [address] [place] [address] December, [facility] [address] [id number] [address] [place] [address] Aug, Arthritis M19.90 [facility] [address] [facility] [id number] [address] [place] [address] Jul, [facility] [address] [facility] [id number] [address] [place] [address] Jul, [facility] [address] [facility] [id number] [address] [place] [address] Jul, [facility] [address] [id number] [address] [place] [address] Jul, [facility] [address] [facility] [id number] [address] [place] [address] Jul, Diabetes E11.9 ; Diabetic ne uropathy E11.40 ; Arthritis M19.90 and COPD (chronic obstructive pulmonary disease) J44.9 [facility] [address] [facility] [id number] [address] [place] [address] Jul, [facility] [address] [id number] [address] [place] [address], [place] [address] 23 Jun, 2015 [facility] [address] [id number] [address] [place] [address], [place] [address] 23 Jun, 2015 [facility] [address] [id number] [address] [place] [address], [place] [address] 17 Jun, 2014 [facility] [address] [id number] [address] [place] [address], [place] [address] 10 Jun, 2014 [facility] [address] [id number] [address] [place] [address], [place] [address] 15 May, 2015 [facility] [address] [id number] [address] [place] [address], [place] [address] 13 May, 2015 [facility] [address] [id number] [address] [place] [address], [place] [address] 07 May, 2015 [facility] [address] [id number] [address] [place] [address], [place] [address] 22 Sep, 2014 [facility] [address] [id number] [address] [place] [address], [place] [address] 21 Sep, 2014 [facility] [address] [id number] [address] [place] [address], [place] [address] 21 Sep, 2014 [facility] [address] [id number] [address] [place] [address], [place] [address] 15 Sep, 2014 [facility] [address] [id number] [address] [place] [address], [place] [address] 11 Sep, 2014 [facility] [address] [id number] [address] [place] [address], [place] [address] 09 Sep, 2014 [facility] [address] [id number] [address] [place] [address], [place] [address] 08 Sep, 2014 [facility] [address] [id number] [address] [place] [address], [place] [address] 03 Sep, 2014 [facility] [address] [id number] [address] [place] [address] [address] Apr, [facility] [address] [facility] [id number] [address] [place] [address] Mar, [facility] [address] [facility] [id number] [address] [place] [address] Mar, [facility] [address] [facility] [id number] [address] [place] [address] Mar, [facility] [address] [facility] [id number] [address] [place] [address] Mar, [facility] [address] [facility] [id number] [address] [place] [address] Mar, [facility] [address] [facility] [id number] [address] [place] [address] Mar, Diabetes mellitus 250.00 ; C OPD (chronic obstructive pulmonary disease) 496 ; Anxiety 300.00 and Arthritis 716.90 [facility] [address] [facility] [id number] [address] [place] [id number] Feb, [facility] [address] [facility] [id number] [address] [place] [address] Feb, [facility] [address] [facility] [id number] [address] [place] [address] Feb, [facility] [address] [facility] [id number] [address] [place] [address] Feb, [facility] [address] [facility] [id number] [address] [place] [address] Jan, Seborrheic keratosis 702.19 and Nevus 216.9 [facility] [address] [facility] [id number] [address] [place] [address] Jan, [facility] [address] [facility] [id number] [address] [place] [address] Jan, Routine gynecological examin ation V72.31 ; Breast cancer screening V76.10 ; Hot flashes 627.2 ; Atypical nevi 216.9 and Constipation 564.00 [facility] [address] [id number] [address] [place] [address], [place] [address] Jan, [facility] [address] [id number] [address] [place] [address], [place] [address] December, [facility] [address] [id number] [address] [place] [address], [place] [address] December, [facility] [address] [id number] [address] [place] [address], [place] [address] Nov, [facility] [address] [id number] [address] [place] [address], [place] [address] Nov, [facility] [address] [id number] [address] [place] [address], [place] [address] Oct, [facility] [address] [id number] [address] [place] [address], [place] [address] 23 Oct, 2014 [facility] [address] [id number] [address] [place] [address], [place] [address] 18 Oct, 2014 [facility] [address] [id number] [address] [place] [address], [place] [address] 18 Oct, 2014 [facility] [address] [id number] [address] [place] [address], [place] [address] 17 Oct, 2014 [facility] [address] [id number] [address] [place] [address], [place] [address] 17 Oct, 2014 [facility] [address] [id number] [address] [place] [address] 16 Oct, 2014 [facility] [address] [id number] [address] [place] [address], [place] [address] 16 Oct, 2014 [facility] [address] [id number] [address] [place] [address], [place] [address] 11 Oct, 2014 [facility] [address] [id number] [address] [place] [address], [place] [address] 11 Oct, 2014 [facility] [address] [id number] [address] [place] [address], [place] [address] Sep, 2014 [facility] [address] [id number] [address] [place] [address], [place] [address] Sep, 2014 [facility] [address] [id number] [address] [place] [address], [place] [address] 19 Sep, 2014 [facility] [address] [id number] [address] [place] [address], [place] [address] 18 Sep, 2014 [facility] [address] [id number] [address] [place] [address], [place] [address] Sep, 2014 [facility] [address] [id number] [address] [place] [address], [place] [address] Sep, 2014 [facility] [address] [id number] [address] [place] [address], [place] [address] Sep, 2014 [facility] [address] [id number] [address] [place] [address], [place] [address] Aug, [facility] [address] [id number] [address] [place] [address], [place] [address] Aug, [facility] [address] [id number] [address] [place] [address], [place] [address] Aug, [facility] [address] [id number] [address] [place] [address], [place] [address] Aug, [facility] [address] [id number] [address] [place] [address], [place] [address] Aug, [facility] [address] [id number] [address] [place] [address], [place] [address] Aug, [facility] [address] [id number] [address] [place] [address], [place] [address] Jul, [facility] [address] [id number] [address] [place] [address], [place] [address] Jul, [facility] [address] [id number] [address] [place] [address], [place] [address] Jul, [facility] [address] [id number] [address] [place] [address], [place] [address] Jul, [facility] [address] [id number] [address] [place] [address], [place] [address] Jul, [facility] [address] [id number] [address] [place] [address], [place] [address] Jun, [facility] [address] [id number] [address] [place] [address], [place] [address] Jun, [facility] [address] [id number] [address] [place] [address], [place] [address] Jun, [facility] [address] [id number] [address] [place] [address], [place] [address] Jun, [facility] [address] [id number] [address] [place] [address], [place] [address] Jun, [facility] [address] [id number] [address] [place] [address], [place] [address] Jun, [facility] [address] [id number] [address] [place] [address], [place] [address] May, [facility] [address] [id number] [address] [place] [address], [place] [address] May, [facility] [address] [id number] [address] [place] [address], [place] [address] May, [facility] [address] [id number] [address] [place] [address] May, [facility] [address] [id number] [address] [place] [address], [place] [address] May, [facility] [address] [id number] [address] [place] [address], [place] [address] May, [facility] [address] [id number] [address] [place] [address], [place] [address] May, [facility] [address] [id number] [address] [place] [address], [place] [address] May, [facility] [address] [id number] [address] [place] [address], [place] [address] May, [facility] [address] [id number] [address] [place] [address], [place] [address] Apr, [facility] [address] [id number] [address] [place] [address], [place] [address] Apr, [facility] [address] [id number] [address] [place] [address], [place] [address] Apr, [facility] [address] [id number] [address] [place] [address], [place] [address] Apr, [facility] [address] [id number] [address] [place] [address], [place] [address] Mar, [facility] [address] [id number] [address] [place] [address], [place] [address] Mar, [facility] [address] [id number] [address] [place] [address], [place] [address] Mar, [facility] [address] [id number] [address] [place] [address], [place] [address] Mar, [facility] [address] [id number] [address] [place] [address], [place] [address] Mar, [facility] [address] [id number] [address] [place] [address], [place] [address] Mar, [facility] [address] [id number] [address] [place] [address], [place] [address] Feb, [facility] [address] [id number] [address] [place] [address], [place] [address] Feb, [facility] [address] [id number] [address] [place] [address], [place] [address] Feb, [facility] [address] [id number] [address] [place] [address], [place] [address] Feb, [facility] [address] [id number] [facility] [place] [address] Feb, 2013 [facility] [address] [id number] [facility] [place] [address] Feb, [facility] [address] [id number] [address] [place] [address], [place] [address] Feb, 2013 [facility] [address] [id number] [address] [place] [address], [place] [address] Feb, 2013 [facility] [address] [id number] [address] [place] [address], [place] [address] Feb, 2013 [facility] [address] [id number] [address] [place] [address], [place] [address] Feb, [facility] [address] [id number] [address] [place] [address], [place] [address] Feb, [facility] [address] [id number] [address] [place] [address], [place] [address] Feb, [facility] [address] [id number] [address] [place] [address], [place] [address] Jan, [facility] [address] [id number] [address] [place] [address], [place] [address] Jan, [facility] [address] [id number] [address] [place] [address], [place] [address] Jan, [facility] [address] [id number] [address] [place] [address], [place] [address] Jan, [facility] [address] [id number] [address] [place] [address], [place] [address] Jan, [facility] [address] [id number] [address] [place] [address], [place] [address] Jan, [facility] [address] [id number] [address] [place] [address], [place] [address] Jan, [facility] [address] [id number] [address] [place] [address], [place] [address] Jan, [facility] [address] [id number] [address] [place] [address], [place] [address] Jan, [facility] [address] [id number] [address] [place] [address], [place] [address] Jan, [facility] [address] [id number] [address] [place] [address], [place] [address] Jan, [facility] [address] [id number] [address] [place] [address], [place] [address] Jan, [facility] [address] [id number] [address] [place] [address], [place] [address] Jan, [facility] [address] [id number] [address] [place] [address], [place] [address] Jan, [facility] [address] [id number] [address] [place] [address], [place] [address] Jan, [facility] [address] [id number] [address] [place] [address], [place] [address] Jan, [facility] [address] [id number] [address] [place] [address], [place] [address] Jan, [facility] [address] [id number] [address] [place] [address], [place] [address] December, [facility] [address] [id number] [address] [place] [address], [place] [address] December, [facility] [address] [id number] [address] [place] [address], [place] [address] December, [facility] [address] [id number] [address] [place] [address], [place] [address] December, [facility] [address] [id number] [address] [place] [address], [place] [address] December, [facility] [address] [id number] [address] [place] [address], [place] [address] December, [facility] [address] [id number] [address] [place] [address], [place] [address] Nov, [facility] [address] [id number] [address] [place] [address], [place] [address] Nov, [facility] [address] [id number] [address] [place] [address], [place] [address] Nov, [facility] [address] [id number] [address] [place] [address], [place] [address] Nov, [facility] [address] [id number] [address] [place] [address], [place] [address] Nov, [facility] [address] [id number] [address] [place] [address], [place] [address] Nov, [facility] [address] [id number] [address] [place] [address], [place] [address] Nov, [facility] [address] [id number] [address] [place] [address], [place] [address] Nov, [facility] [address] [id number] [address] [place] [address], [place] [address] Nov, [facility] [address] [id number] [address] [place] [address], [place] [address] Nov, [facility] [address] [id number] [address] [place] [address], [place] [address] Nov, [facility] [address] [id number] [address] [place] [address], [place] [address] Nov, [facility] [address] [id number] [address] [place] [address], [place] [address] Nov, [facility] [address] [id number] [address] [place] [address], [place] [address] Nov, [facility] [address] [id number] [address] [place] [address], [place] [address] Nov, [facility] [address] [id number] [address] [place] [address], [place] [address] Nov, [facility] [address] [id number] [address] [place] [address], [place] [address] Oct, [facility] [address] [id number] [address] [place] [address], [place] [address] Oct, [facility] [address] [id number] [address] [place] [address], [place] [address] Oct, [facility] [address] [id number] [address] [place] [address], [place] [address] Oct, [facility] [address] [id number] [address] [place] [address], [place] [address] Oct, [facility] [address] [id number] [address] [place] [address], [place] [address] Oct, [facility] [address] [id number] [address] [place] [address], [place] [address] Oct, [facility] [address] [id number] [address] [place] [address], [place] [address] Oct, [facility] [address] [id number] [address] [place] [address], [place] [address] Sep, [facility] [address] [id number] [address] [place] [address], [place] [address] Sep, [facility] [address] [id number] [address] [place] [address], [place] [address] Sep, [facility] [address] [id number] [address] [place] [address], [place] [address] Sep, [facility] [address] [id number] [address] [place] [address], [place] [address] Sep, [facility] [address] [id number] [address] [place] [address], [place] [address] Sep, [facility] [address] [id number] [address] [place] [address], [place] [address] Aug, [facility] [address] [id number] [address] [place] [address], [place] [address] Aug, [facility] [address] [id number] [address] [place] [address], [place] [address] Aug, [facility] [address] [id number] [address] [place] [address], [place] [address] Aug, [facility] [address] [id number] [address] [place] [address], [place] [address] Aug, [facility] [address] [id number] [address] [place] [address], [place] [address] Aug, [facility] [address] [id number] [address] [place] [address], [place] [address] Aug, [facility] [address] [id number] [address] [place] [address], [place] [address] Aug, [facility] [address] [id number] [address] [place] [address], [place] [address] Jul, [facility] [address] [id number] [address] [place] [address], [place] [address] Jul, [facility] [address] [id number] [address] [place] [address], [place] [address] Jul, [facility] [address] [id number] [address] [place] [address], [place] [address] Jul, [facility] [address] [id number] [address] [place] [address], [place] [address] Jul, [facility] [address] [id number] [address] [place] [address], [place] [address] Jul, [facility] [address] [id number] [address] [place] [address], [place] [address] Jul, [facility] [address] [id number] [address] [place] [address], [place] [address] Jul, [facility] [address] [id number] [address] [place] [address], [place] [address] Jul, [facility] [address] [id number] [address] [place] [address], [place] [address] 14 Jun, 2013 [facility] [address] [id number] [address] [place] [address], [place] [address] 14 Jun, 2013 [facility] [address] [id number] [address] [place] [address], [place] [address] Jun, [facility] [address] [id number] [address] [place] [address], [place] [address] Jun, [facility] [address] [id number] [address] [place] [address], [place] [address] Jun, [facility] [address] [id number] [address] [place] [address], [place] [address] Jun, [facility] [address] [id number] [address] [place] [address], [place] [address] 31 May, 2013 [facility] [address] [id number] [address] [place] [address], [place] [address] 31 May, 2013 [facility] [address] [id number] [address] [place] [address], [place] [address] 17 May, 2013 [facility] [address] [id number] [address] [place] [address], [place] [address] 17 May, 2013 [facility] [address] [id number] [address] [place] [address], [place] [address] 14 May, 2013 [facility] [address] [id number] [address] [place] [address], [place] [address] 14 May, 2013 [facility] [address] [id number] [address] [place] [address], [place] [address] 10 May, 2013 [facility] [address] [id number] [address] [place] [address], [place] [address] 10 May, 2013 [facility] [address] [id number] [address] [place] [address] 07 May, 2013 [facility] [address] [id number] [address] [place] [address] 20 Sep, 2012 [facility] [address] [id number] [address] [place] [address], [place] [address] 19 Sep, 2012 [facility] [address] [id number] [address] [place] [address], [place] [address] 12 Apr, 2012 [facility] [address] [id number] [address] [place] [address], [place] [address] 24 Sep, 2011 [facility] [address] [id number] [address] [place] [address], [place] [address] 21 Sep, 2011 [facility] [address] [id number] [address] [place] [address], [place] [address] 21 Apr, 2011 [facility] [address] [id number] [address] [place] [address], [place] [address] 14 Apr, 2011 [facility] [address] [id number] [address] [place] [address], [place] [address] 10 Apr, 2011 [facility] [address] [id number] [address] [place] [address], [place] [address] 06 Apr, 2011 [facility] [address] [id number] [address] [place] [address], [place] [id number] 04 Apr, 2011 [facility] [address] [id number] [address] [place] [address], [place] [address] 31 Mar, 2012 [facility] [address] [id number] [address] [place] [address], [place] [address] 28 Mar, 2012 [facility] [address] [id number] [address] [place] [address], [place] [address] 27 Mar, 2012 [facility] [address] [id number] [address] [place] [address], [place] [address] 10 Mar, 2012 [facility] [address] [id number] [address] [place] [address], [place] [address] 08 Mar, 2012 [facility] [address] [id number] [address] [place] [address], [place] [address] 03 Mar, 2012 [facility] [address] [id number] [address] [place] [address], [place] [address] Feb, [facility] [address] [id number] [address] [place] [address], [place] [address] Feb, [facility] [address] [id number] [address] [place] [address], [place] [address] Feb, [facility] [address] [id number] [address] [place] [address], [place] [address] Jan, [facility] [address] [id number] [address] [place] [address], [place] [address] Jan, [facility] [address] [id number] [address] [place] [address], [place] [address] Jan, [facility] [address] [id number] [address] [place] [address], [place] [address] Jan, [facility] [address] [id number] [address] [place] [address], [place] [address] Jan, [facility] [address] [id number] [address] [place] [address], [place] [address] Jan, [facility] [address] [id number] [address] [place] [address], [place] [address] Jan, [facility] [address] [id number] [address] [place] [address], [place] [address] Jan, [facility] [address] [id number] [address] [place] [address], [place] [address] December, [facility] [address] [id number] [address] [place] [address], [place] [address] December, [facility] [address] [id number] [address] [place] [address], [place] [address] December, [facility] [address] [id number] [address] [place] [address], [place] [address] December, [facility] [address] [id number] [address] [place] [address], [place] [address] December, [facility] [address] [id number] [address] [place] [address], [place] [address] December, [facility] [address] [id number] [address] [place] [address], [place] [address] 13 Nov, [address] [facility] [address] [id number] [address] [place] [address], [place] [address] 13 Nov, 2011 [facility] [address] [id number] [address] [place] [address], [place] [address] Nov, [facility] [address] [id number] [address] [place] [address], [place] [address] Nov, [facility] [address] [id number] [address] [place] [address], [place] [address] Nov, [facility] [address] [id number] [address] [place] [address], [place] [address] Oct, [facility] [address] [id number] [address] [place] [address], [place] [address] 17 Sep, 2011 [facility] [address] [id number] [address] [place] [address], [place] [address] Aug, [facility] [address] [id number] [address] [place] [address], [place] [address] Aug, [facility] [address] [id number] [address] [place] [address], [place] [address] Aug, [facility] [address] [id number] [address] [place] [address], [place] [address] Aug, [facility] [address] [id number] [address] [place] [address], [place] [address] Aug, [facility] [address] [id number] [address] [place] [address], [place] [address] Jul, [facility] [address] [id number] [address] [place] [address], [place] [address] Jul, [facility] [address] [id number] [address] [place] [address], [place] [address] Jun, [facility] [address] [id number] [address] [place] [address], [place] [address] Jun, [facility] [address] [id number] [address] [place] [address], [place] [address] Jun, [facility] [address] [id number] [address] [place] [address], [place] [address] May, [facility] [address] [id number] [address] [place] [address], [place] [address] May, [facility] [address] [id number] [address] [place] [address], [place] [address] 16 Oct, 2010 [facility] [address] [id number] [address] [place] [address], [place] [address] Oct, [facility] [address] [id number] [address] [place] [address], [place] [address] 29 Jul, 2010 [facility] [address] [id number] [address] [place] [address], [place] [address] 08 Jul, 2010 [facility] [address] [id number] [address] [place] [address], [place] [address] Jul, [facility] [address] [id number] [address] [place] [address], [place] [address] Jul, [facility] [address] [id number] [address] [place] [address], [place] [address] Jul, [facility] [address] [id number] [address] [place] [address], [place] [address] Jun, [facility] [address] [id number] [address] [place] [address], [place] [address] Jun, [facility] [address] [id number] [address] [place] [address], [place] [address] Jun, [facility] [address] [id number] [address] [place] [address], [place] [address] May, [facility] [address] [facility] [id number] [address] [place] [address] 16 Mar, 2010 IMMUNIZATIONS No Known Immunizations [...]
--- OUTSIDE RECORDS SUMMARY | 2020-03-12 09:33 | XMS REPORT ---
Author Author Caren LYLE Organization [facility] Address [address] [place] [address] Care Team Providers Care Instrumentation Engineering Technician Name Role Phone LAURIE LYLE Unavailable PROBLEMS Type Condition ICD9-CM Code HEC16-EN Code Onset Dates Condition S tatus SNOMED Code Problem COPD (chronic obstructive pulmonary disease) J44.9 Active 11738253 Problem Diabetes E11.9 Active 44800049 Problem Diabetic neuropathy E11.40 Active 196856612 Problem Arthritis M19.90 Active [id number] ALLERGIES No Information ENCOUNTERS Encounter Location Date Diagnosis [facility] [address] [facility] [id number] [address] [place] [address] December, [facility] [address] [id number] [address] [place] [address] Aug, Arthritis M19.90 [facility] [address] [facility] [id number] [address] [place] [address] Jul, [facility] [address] [facility] [id number] [address] [place] [address] Jul, [facility] [address] [facility] [id number] [address] [place] [address] Jul, [facility] [address] [id number] [address] [place] [address] Jul, [facility] [address] [facility] [id number] [address] [place] [address] Jul, Diabetes E11.9 ; Diabetic ne uropathy E11.40 ; Arthritis M19.90 and COPD (chronic obstructive pulmonary disease) J44.9 [facility] [address] [facility] [id number] [address] [place] [address] Jul, [facility] [address] [id number] [address] [place] [address], [place] [address] 23 Jun, 2015 [facility] [address] [id number] [address] [place] [address], [place] [address] 23 Jun, 2015 [facility] [address] [id number] [address] [place] [address], [place] [address] 17 Jun, 2014 [facility] [address] [id number] [address] [place] [address], [place] [address] 10 Jun, 2014 [facility] [address] [id number] [address] [place] [address], [place] [address] 15 May, 2015 [facility] [address] [id number] [address] [place] [address], [place] [address] 13 May, 2015 [facility] [address] [id number] [address] [place] [address], [place] [address] 07 May, 2015 [facility] [address] [id number] [address] [place] [address], [place] [address] 22 Sep, 2014 [facility] [address] [id number] [address] [place] [address], [place] [address] 21 Sep, 2014 [facility] [address] [id number] [address] [place] [address], [place] [address] 21 Sep, 2014 [facility] [address] [id number] [address] [place] [address], [place] [address] 15 Sep, 2014 [facility] [address] [id number] [address] [place] [address], [place] [address] 11 Sep, 2014 [facility] [address] [id number] [address] [place] [address], [place] [address] 09 Sep, 2014 [facility] [address] [id number] [address] [place] [address], [place] [address] 08 Sep, 2014 [facility] [address] [id number] [address] [place] [address], [place] [address] 03 Sep, 2014 [facility] [address] [id number] [address] [place], [place] [address] [address] Apr, [facility] [address] [facility] [id number] [address] [place] [address] Mar, [facility] [address] [facility] [id number] [address] [place] [address] Mar, [facility] [address] [facility] [id number] [address] [place] [address] Mar, [facility] [address] [facility] [id number] [address] [place] [address] Mar, [facility] [address] [facility] [id number] [address] [place] [address] Mar, [facility] [address] [facility] [id number] [address] [place] [address] Mar, Diabetes mellitus 250.00 ; C OPD (chronic obstructive pulmonary disease) 496 ; Anxiety 300.00 and Arthritis 716.90 [facility] [address] [facility] [id number] [address] [place] [address] Feb, [facility] [address] [facility] [id number] [address] [place] [address] Feb, [facility] [address] [facility] [id number] [address] [place] [address] Feb, [facility] [address] [facility] [id number] [address] [place] [address] Feb, [facility] [address] [facility] [id number] [address] [place] [address] Jan, Seborrheic keratosis 702.19 and Nevus 216.9 [facility] [address] [facility] [id number] [address] [place] [address] Jan, [facility] [address] [facility] [id number] [address] [place] [address] Jan, Routine gynecological examin ation V72.31 ; Breast cancer screening V76.10 ; Hot flashes 627.2 ; Atypical nevi 216.9 and Constipation 564.00 [facility] [address] [id number] [address] [place] [address], [place] [address] Jan, [facility] [address] [id number] [address] [place] [address], [place] [address] December, [facility] [address] [id number] [address] [place] [address], [place] [address] December, [facility] [address] [id number] [address] [place] [address], [place] [address] Nov, [facility] [address] [id number] [address] [place] [address], [place] [address] Nov, [facility] [address] [id number] [address] [place] [address], [place] [address] Oct, [facility] [address] [id number] [address] [place] [address], [place] [address] 23 Oct, 2014 [facility] [address] [id number] [address] [place] [address], [place] [address] 18 Oct, 2014 [facility] [address] [id number] [address] [place] [address], [place] [address] 18 Oct, 2014 [facility] [address] [id number] [address] [place] [address], [place] [address] 17 Oct, 2014 [facility] [address] [id number] [address] [place] [address], [place] [address] 17 Oct, 2014 [facility] [address] [id number] [address] [place] [address] 16 Oct, 2014 [facility] [address] [id number] [address] [place] [address], [place] [address] 16 Oct, 2014 [facility] [address] [id number] [address] [place] [address], [place] [address] 11 Oct, 2014 [facility] [address] [id number] [address] [place] [address], [place] [address] 11 Oct, 2014 [facility] [address] [id number] [address] [place] [address], [place] [address] Sep, 2014 [facility] [address] [id number] [address] [place] [address], [place] [address] Sep, 2014 [facility] [address] [id number] [address] [place] [address], [place] [address] 19 Sep, 2014 [facility] [address] [id number] [address] [place] [address], [place] [address] 18 Sep, 2014 [facility] [address] [id number] [address] [place] [address], [place] [address] Sep, 2014 [facility] [address] [id number] [address] [place] [address], [place] [address] Sep, 2014 [facility] [address] [id number] [address] [place] [address], [place] [address] Sep, 2014 [facility] [address] [id number] [address] [place] [address], [place] [address] Aug, [facility] [address] [id number] [address] [place] [address], [place] [address] Aug, [facility] [address] [id number] [address] [place] [address], [place] [address] Aug, [facility] [address] [id number] [address] [place] [address], [place] [address] Aug, [facility] [address] [id number] [address] [place] [address], [place] [address] Aug, [facility] [address] [id number] [address] [place] [address], [place] [address] Aug, [facility] [address] [id number] [address] [place] [address], [place] [address] Jul, [facility] [address] [id number] [address] [place] [address], [place] [address] Jul, [facility] [address] [id number] [address] [place] [address], [place] [address] Jul, [facility] [address] [id number] [address] [place] [address], [place] [address] Jul, [facility] [address] [id number] [address] [place] [address], [place] [address] Jul, [facility] [address] [id number] [address] [place] [address], [place] [address] Jun, [facility] [address] [id number] [address] [place] [address], [place] [address] Jun, [facility] [address] [id number] [address] [place] [address], [place] [address] Jun, [facility] [address] [id number] [address] [place] [address], [place] [address] Jun, [facility] [address] [id number] [address] [place] [address], [place] [address] Jun, [facility] [address] [id number] [address] [place] [address], [place] [address] Jun, [facility] [address] [id number] [address] [place] [address], [place] [address] May, [facility] [address] [id number] [address] [place] [address], [place] [address] May, [facility] [address] [id number] [address] [place] [address], [place] [address] May, [facility] [address] [id number] [address] [place] [address] May, [facility] [address] [id number] [address] [place] [address], [place] [address] May, [facility] [address] [id number] [address] [place] [address], [place] [address] May, [facility] [address] [id number] [address] [place] [address], [place] [address] May, [facility] [address] [id number] [address] [place] [address], [place] [address] May, [facility] [address] [id number] [address] [place] [address], [place] [address] May, [facility] [address] [id number] [address] [place] [address], [place] [address] Apr, [facility] [address] [id number] [address] [place] [address], [place] [address] Apr, [facility] [address] [id number] [address] [place] [address], [place] [address] Apr, [facility] [address] [id number] [address] [place] [address], [place] [address] Apr, [facility] [address] [id number] [address] [place] [address], [place] [address] Mar, [facility] [address] [id number] [address] [place] [address], [place] [address] Mar, [facility] [address] [id number] [address] [place] [address], [place] [address] Mar, [facility] [address] [id number] [address] [place] [address], [place] [address] Mar, [facility] [address] [id number] [address] [place] [address], [place] [address] Mar, [facility] [address] [id number] [address] [place] [address], [place] [address] Mar, [facility] [address] [id number] [address] [place] [address], [place] [address] Feb, [facility] [address] [id number] [address] [place] [address], [place] [address] Feb, [facility] [address] [id number] [address] [place] [address], [place] [address] Feb, [facility] [address] [id number] [address] [place] [address], [place] [address] Feb, [facility] [address] [id number] [facility] [place] [address] Feb, 2013 [facility] [address] [id number] [facility] [place] [address] Feb, [facility] [address] [id number] [address] [place] [address], [place] [address] Feb, 2013 [facility] [address] [id number] [address] [place] [address], [place] [address] Feb, 2013 [facility] [address] [id number] [address] [place] [address], [place] [address] Feb, 2013 [facility] [address] [id number] [address] [place] [address], [place] [address] Feb, [facility] [address] [id number] [address] [place] [address], [place] [address] Feb, [facility] [address] [id number] [address] [place] [address], [place] [address] Feb, [facility] [address] [id number] [address] [place] [address], [place] [address] Jan, [facility] [address] [id number] [address] [place] [address], [place] [address] Jan, [facility] [address] [id number] [address] [place] [address], [place] [address] Jan, [facility] [address] [id number] [address] [place] [address], [place] [address] Jan, [facility] [address] [id number] [address] [place] [address], [place] [address] Jan, [facility] [address] [id number] [address] [place] [address], [place] [address] Jan, [facility] [address] [id number] [address] [place] [address], [place] [address] Jan, [facility] [address] [id number] [address] [place] [address], [place] [address] Jan, [facility] [address] [id number] [address] [place] [address], [place] [address] Jan, [facility] [address] [id number] [address] [place] [address], [place] [address] Jan, [facility] [address] [id number] [address] [place] [address], [place] [address] Jan, [facility] [address] [id number] [address] [place] [address], [place] [address] Jan, [facility] [address] [id number] [address] [place] [address], [place] [address] Jan, [facility] [address] [id number] [address] [place] [address], [place] [address] Jan, [facility] [address] [id number] [address] [place] [address], [place] [address] Jan, [facility] [address] [id number] [address] [place] [address], [place] [address] Jan, [facility] [address] [id number] [address] [place] [address], [place] [address] Jan, [facility] [address] [id number] [address] [place] [address], [place] [address] December, [facility] [address] [id number] [address] [place] [address], [place] [address] December, [facility] [address] [id number] [address] [place] [address], [place] [address] December, [facility] [address] [id number] [address] [place] [address], [place] [address] December, [facility] [address] [id number] [address] [place] [address], [place] [address] December, [facility] [address] [id number] [address] [place] [address], [place] [address] December, [facility] [address] [id number] [address] [place] [address], [place] [address] Nov, [facility] [address] [id number] [address] [place] [address], [place] [address] Nov, [facility] [address] [id number] [address] [place] [address], [place] [address] Nov, [facility] [address] [id number] [address] [place] [address], [place] [address] Nov, [facility] [address] [id number] [address] [place] [address], [place] [address] Nov, [facility] [address] [id number] [address] [place] [address], [place] [address] Nov, [facility] [address] [id number] [address] [place] [address], [place] [address] Nov, [facility] [address] [id number] [address] [place] [address], [place] [address] Nov, [facility] [address] [id number] [address] [place] [address], [place] [address] Nov, [facility] [address] [id number] [address] [place] [address], [place] [address] Nov, [facility] [address] [id number] [address] [place] [address], [place] [address] Nov, [facility] [address] [id number] [address] [place] [address], [place] [address] Nov, [facility] [address] [id number] [address] [place] [address], [place] [address] Nov, [facility] [address] [id number] [address] [place] [address], [place] [address] Nov, [facility] [address] [id number] [address] [place] [address], [place] [address] Nov, [facility] [address] [id number] [address] [place] [address], [place] [address] Nov, [facility] [address] [id number] [address] [place] [address], [place] [address] Oct, [facility] [address] [id number] [address] [place] [address], [place] [address] Oct, [facility] [address] [id number] [address] [place] [address], [place] [address] Oct, [facility] [address] [id number] [address] [place] [address], [place] [address] Oct, [facility] [address] [id number] [address] [place] [address], [place] [address] Oct, [facility] [address] [id number] [address] [place] [address], [place] [address] Oct, [facility] [address] [id number] [address] [place] [address], [place] [address] Oct, [facility] [address] [id number] [address] [place] [address], [place] [address] Oct, [facility] [address] [id number] [address] [place] [address], [place] [address] Sep, [facility] [address] [id number] [address] [place] [address], [place] [address] Sep, [facility] [address] [id number] [address] [place] [address], [place] [address] Sep, [facility] [address] [id number] [address] [place] [address], [place] [address] Sep, [facility] [address] [id number] [address] [place] [address], [place] [address] Sep, [facility] [address] [id number] [address] [place] [address], [place] [address] Sep, [facility] [address] [id number] [address] [place] [address], [place] [address] Aug, [facility] [address] [id number] [address] [place] [address], [place] [address] Aug, [facility] [address] [id number] [address] [place] [address], [place] [address] Aug, [facility] [address] [id number] [address] [place] [address], [place] [address] Aug, [facility] [address] [id number] [address] [place] [address], [place] [address] Aug, [facility] [address] [id number] [address] [place] [address], [place] [address] Aug, [facility] [address] [id number] [address] [place] [address], [place] [address] Aug, [facility] [address] [id number] [address] [place] [address], [place] [address] Aug, [facility] [address] [id number] [address] [place] [address], [place] [address] Jul, [facility] [address] [id number] [address] [place] [address], [place] [address] Jul, [facility] [address] [id number] [address] [place] [address], [place] [address] Jul, [facility] [address] [id number] [address] [place] [address], [place] [address] Jul, [facility] [address] [id number] [address] [place] [address], [place] [address] Jul, [facility] [address] [id number] [address] [place] [address], [place] [address] Jul, [facility] [address] [id number] [address] [place] [address], [place] [address] Jul, [facility] [address] [id number] [address] [place] [address], [place] [address] Jul, [facility] [address] [id number] [address] [place] [address], [place] [address] Jul, [facility] [address] [id number] [address] [place] [address], [place] [address] 14 Jun, 2013 [facility] [address] [id number] [address] [place] [address], [place] [address] 14 Jun, 2013 [facility] [address] [id number] [address] [place] [address], [place] [address] Jun, [facility] [address] [id number] [address] [place] [address], [place] [address] Jun, [facility] [address] [id number] [address] [place] [address], [place] [address] Jun, [facility] [address] [id number] [address] [place] [address], [place] [address] Jun, [facility] [address] [id number] [address] [place] [address], [place] [address] 31 May, 2013 [facility] [address] [id number] [address] [place] [address], [place] [address] 31 May, 2013 [facility] [address] [id number] [address] [place] [address], [place] [address] 17 May, 2013 [facility] [address] [id number] [address] [place] [address], [place] [address] 17 May, 2013 [facility] [address] [id number] [address] [place] [address], [place] [address] 14 May, 2013 [facility] [address] [id number] [address] [place] [address], [place] [address] 14 May, 2013 [facility] [address] [id number] [address] [place] [address], [place] [address] 10 May, 2013 [facility] [address] [id number] [address] [place] [address], [place] [address] 10 May, 2013 [facility] [address] [id number] [address] [place] [id number] 07 May, 2013 [facility] [address] [id number] [address] [place] [id number] 20 Sep, 2012 [facility] [address] [id number] [address] [place] [address], [place] [address] 19 Sep, 2012 [facility] [address] [id number] [address] [place] [address], [place] [address] 12 Apr, 2012 [facility] [address] [id number] [address] [place] [address], [place] [address] 24 Sep, 2011 [facility] [address] [id number] [address] [place] [address], [place] [address] 21 Sep, 2011 [facility] [address] [id number] [address] [place] [address], [place] [address] 21 Apr, 2011 [facility] [address] [id number] [address] [place] [address], [place] [address] 14 Apr, 2011 [facility] [address] [id number] [address] [place] [address], [place] [address] 10 Apr, 2011 [facility] [address] [id number] [address] [place] [address], [place] [address] 06 Apr, 2011 [facility] [address] [id number] [address] [place] [address], [place] [address] 04 Apr, 2011 [facility] [address] [id number] [address] [place] [address], [place] [address] 31 Mar, 2012 [facility] [address] [id number] [address] [place] [address], [place] [address] 28 Mar, 2012 [facility] [address] [id number] [address] [place] [address], [place] [address] 27 Mar, 2012 [facility] [address] [id number] [address] [place] [address], [place] [address] 10 Mar, 2012 [facility] [address] [id number] [address] [place] [address], [place] [address] 08 Mar, 2012 [facility] [address] [id number] [address] [place] [address], [place] [address] 03 Mar, 2012 [facility] [address] [id number] [address] [place] [address], [place] [address] Feb, [facility] [address] [id number] [address] [place] [address], [place] [address] Feb, [facility] [address] [id number] [address] [place] [address], [place] [address] Feb, [facility] [address] [id number] [address] [place] [address], [place] [address] Jan, [facility] [address] [id number] [address] [place] [address], [place] [address] Jan, [facility] [address] [id number] [address] [place] [address], [place] [address] Jan, [facility] [address] [id number] [address] [place] [address], [place] [address] Jan, [facility] [address] [id number] [address] [place] [address], [place] [address] Jan, [facility] [address] [id number] [address] [place] [address], [place] [address] Jan, [facility] [address] [id number] [address] [place] [address], [place] [address] Jan, [facility] [address] [id number] [address] [place] [address], [place] [address] Jan, [facility] [address] [id number] [address] [place] [address], [place] [address] December, [facility] [address] [id number] [address] [place] [address], [place] [address] December, [facility] [address] [id number] [address] [place] [address], [place] [address] December, [facility] [address] [id number] [address] [place] [address], [place] [address] December, [facility] [address] [id number] [address] [place] [address], [place] [address] December, [facility] [address] [id number] [address] [place] [address], [place] [address] December, [facility] [address] [id number] [address] [place] [address], [place] [address] 13 Nov, 2011 [facility] [address] [id number] [address] [place] [address], [place] [address] 13 Nov, 2011 [facility] [address] [id number] [address] [place] [address], [place] [address] Nov, [facility] [address] [id number] [address] [place] [address], [place] [address] Nov, [facility] [address] [id number] [address] [place] [address], [place] [address] Nov, [facility] [address] [id number] [address] [place] [address], [place] [address] Oct, [facility] [address] [id number] [address] [place] [address], [place] [address] 17 Sep, 2011 [facility] [address] [id number] [address] [place] [address], [place] [address] Aug, [facility] [address] [id number] [address] [place] [address], [place] [address] Aug, [facility] [address] [id number] [address] [place] [address], [place] [address] Aug, [facility] [address] [id number] [address] [place] [address], [place] [address] Aug, [facility] [address] [id number] [address] [place] [address], [place] [address] Aug, [facility] [address] [id number] [address] [place] [address], [place] [address] Jul, [facility] [address] [id number] [address] [place] [address], [place] [address] Jul, [facility] [address] [id number] [address] [place] [address], [place] [address] Jun, [facility] [address] [id number] [address] [place] [address], [place] [address] Jun, [facility] [address] [id number] [address] [place] [address], [place] [address] Jun, [facility] [address] [id number] [address] [place] [address], [place] [address] May, [facility] [address] [id number] [address] [place] [address], [place] [address] May, [facility] [address] [id number] [address] [place] [address], [place] [address] 16 Oct, 2010 [facility] [address] [id number] [address] [place] [address], [place] [address] Oct, [facility] [address] [id number] [address] [place] [address], [place] [address] 29 Jul, 2010 [facility] [address] [id number] [address] [place] [address], [place] [address] 08 Jul, 2010 [facility] [address] [id number] [address] [place] [address], [place] [address] Jul, [facility] [address] [id number] [address] [place] [address], [place] [address] Jul, [facility] [address] [id number] [address] [place] [address], [place] [address] Jul, [facility] [address] [id number] [address] [place] [address], [place] [address] Jun, [facility] [address] [id number] [address] [place] [address], [place] [address] Jun, [facility] [address] [id number] [address] [place] [address], [place] [address] Jun, [facility] [address] [id number] [address] [place] [address], [place] [address] May, [facility] [address] [facility] [id number] [address] [place] [address] 16 Mar, 2010 IMMUNIZATIONS No Known Immunizations [...]
--- NOTE | 2020-03-12 09:40 | NUR ---
PLACED ON 02 SA02 89% PATIENT REPORTS WEARS 02 WHEN SHE NEEDS IT.
--- OUTSIDE RECORDS SUMMARY | 2020-03-12 09:42 | XMS REPORT | Continuity of Care Document ---
[...] 02/21/2010 VALDO PATRICK, LAURIE 110.1 ONYCHOMYCOSIS 02/21/2010 VALOD PATRICK, LAURIE 250.0 0 DIABETES II CONTROLLED [...] DO K 311 DEPRESSION SEASONAL PATTERN 02/21/2010 ARDHA KAUR DO K 401.0 Hypertension Malignant Essential [...] MD 278.0 0 OBESITY UNSPECIFIED 10/21/2010 LAURIE LYEL MD 278.0 0 OBESITY UNSPECIFIED 10/21/2010 LAURIE [...] Pain In Joint Involving Shoulder Region 06/25/2011 ALURIE LYLE MD 71Felix.4 1 Pain In Joint [...] PATRICK, LAURIE 782.3 EDEMA 04/28/2012 VALDO PATRICK, LAUIRE 782.3 EDEMA 04/28/2012 VALDO PATRICK, LAURIE 782.3 [...] DO, RADHA K 782.3 EDEMA 04/28/2012 VALDO PTARICK, LAURIE 782.3 EDEMA 04/28/2012 VALDO PATRICK, LAURIE [...] Code [place] [address] A1C (IN-HOUSE) 05/04/2013 62954 MICR O ALBUMIN-IN HOUSE 05/04/2013 Orthopedi Kendal, Hilario 06/06/2013 49180 OXIMETRY 07/25/2013 J2930 SOLU MEDROL INJ 10/17/2013 43652 THER APUTIC INJ SQ/IM 10/17/2013 66479 OXIMETRY 10/18/2013 30466 A1C (IN-HOUSE) 10/20/2013 61378 OXIMETRY 10/23/2013 63363 OXIMETRY 11/24/2013 02224 OXIMETRY 11/27/2013 92073 OXIMETRY 12/07/2013 08587 A1C (IN-HOUSE) 01/25/2014 13875 OXIMETRY 01/25/2014 96931 US V ENOUS DOPPLER (DVT EVAL) 03/01/2014 14152 OXIMETRY 03/20/2014 50130 A1C (IN-HOUSE) 05/15/2014 33489 ROUT INE VENIPUNCTURE 11/06/2014 62514 A1C (IN-HOUSE) 11/12/2014 Results There is no data. Encounters ACCT No. Visit Date/Time Discharge Status Pt. Type Provider Facility Loc./Unit Complaint [id number] 11/12/2014 08:46:00 11/12/2014 23:59: 59 [facility] Outpatient LAURIE LYLE MD [id number] 11/12/2014 08:46:00 11/12/2014 23:59: 59 [facility] Outpatient LAURIE LYLE MD [id number] 07/11/2014 07:02:00 07/11/2014 23:59: 59 [facility] Outpatient RADHA KAUR DO [id number] 06/18/2014 15:58:00 06/18/2014 23:59: 59 [facility] Outpatient LAURIE LYLE MD [id number] 05/15/2014 15:49:00 05/15/2014 23:59: 59 [facility] Outpatient LAURIE LYLE MD [id number] 05/15/2014 15:49:00 05/15/2014 23:59: 59 [facility] Outpatient LAURIE LYLE MD [id number] 03/01/2014 14:07:00 03/01/2014 23:59: 59 [facility] Outpatient LAURIE LYLE MD [id number] 03/01/2014 14:07:00 03/01/2014 23:59: 59 [facility] Outpatient RADHA KAUR DO [id number] 02/08/2014 15:16:00 02/08/2014 23:59: 59 [facility] Outpatient LAURIE LYLE MD [id number] 01/25/2014 15:56:00 01/25/2014 23:59: 59 [facility] Outpatient LAURIE LYLE MD [id number] 01/25/2014 15:56:00 01/25/2014 23:59: 59 [facility] Outpatient LAURIE LYLE MD [id number] 12/21/2013 15:54:00 12/21/2013 23:59: 59 [facility] Outpatient RADHA KAUR DO [id number] 12/07/2013 15:23:00 12/07/2013 23:59: 59 [facility] Outpatient LAURIE LYLE MD [id number] 11/27/2013 15:23:00 11/27/2013 23:59: 59 [facility] Outpatient LAURIE LYLE MD [id number] 11/27/2013 15:23:00 11/27/2013 23:59: 59 [facility] Outpatient LAURIE LYLE MD [id number] 11/24/2013 10:24:00 11/24/2013 23:59: 59 [facility] Outpatient LAURIE LYLE MD [id number] 10/30/2013 13:21:00 10/30/2013 23:59: 59 [facility] Outpatient LAURIE LYLE MD [id number] 10/20/2013 15:08:00 10/20/2013 23:59: 59 [facility] Outpatient LAURIE LYLE MD [id number] 10/20/2013 15:08:00 10/20/2013 23:59: 59 [facility] Outpatient LAURIE LYLE MD [id number] 07/25/2013 09:10:00 07/25/2013 23:59: 59 [facility] Outpatient LAURIE LYLE MD [id number] 06/05/2013 10:34:00 06/05/2013 23:59: 59 [facility] Outpatient LAURIE LYLE MD [id number] 05/04/2013 16:15:00 05/04/2013 23:59: 59 [facility] Outpatient LAURIE LYLE MD [id number] 05/04/2013 16:15:00 05/04/2013 23:59: 59 [facility] Outpatient LAURIE LYLE MD [id number] 01/10/2020 11:21:00 01/10/2020 23:59 :00 DIS Outpatient KIRSTEN ERNST [id number] 08/01/2018 08:59:00 08/01/2018 23:59: 00 [facility] Outpatient HILARIO THAO [id number] 08/01/2018 08:25:00 08/01/2018 23:59: 00 DIS Outpatient HILARIO THAO
--- NOTE | 2020-03-12 09:58 | NUR ---
TO ROOM FLUIDS INFUSING REPORTS PAIN BETTER
[2020-03-12 10:43] LABS: BILIRUBIN,URINE NEGATIVE (NEGATIVE); CLARITY,URINE CLOUDY; COLOR,URINE YELLOW; GLUCOSE, URINE (UA) 2+ (NEGATIVE); KETONES,URINE NEGATIVE (NEGATIVE); LEUKOCYTE ESTERASE ,URINE 1+ (NEGATIVE); NITRITE,URINE NEGATIVE (NEGATIVE); PROTEIN,URINE 2+ (NEGATIVE)
[2020-03-12 10:58] LABS: BACTERIA,URINE MODERATE /HPF; WBC,URINE TNTC /HPF
[2020-03-12 10:59] LABS: SQUAMOUS EPITHELIAL CELL,UR 25-50 /HPF
[2020-03-12] MEDS ORDERED: cefTRIAXone FOR IV USE 1,000 MG in WATER (STERILE) FOR INJECTION 10 ML IV STA (11:27)
--- NOTE | 2020-03-12 11:36 | NUR ---
LAB CALLED TO DRAW BLOOD CULTURE.
--- NOTE | 2020-03-12 11:56 | NUR ---
BOTH BLOOD CULTURE AND LATIC ACID OBTAINED BY LAB.
--- NOTE | 2020-03-12 12:13 | NUR ---
[facility] HERE WANT TO MAKE A PATIENT A PUI. Addendum: 03/12/20 at 1217 by PMCCLURE HOUSE SUP NOTIFIED
--- NOTE | 2020-03-12 12:40 | NUR ---
COVID SWAB OBTAINED SWAB SENT TO LAB. Addendum: 03/12/20 at 1242 by PMCCLURE PATIENT PLACED IN ISOLATION AFTER [facility] DECIDED TO MAKE HER A PUI
--- NOTE | 2020-03-12 13:09 | History & Physical ---
HPI History of Present Illness: 69 yo came in due to diarrhea starting two weeks ago, then she started to have flank pain and bad smelling urine a few days ago. Also has nausea and vomiting. She lost insurance and ran out of her insulin and has been out of her inhalers for her COPD as well, and has had increased shortness of breath which she relates to that. Admits intermittent chest pain without clear association to vomiting or coughing/shortness of breath. Has occasional cough. She had to have utereteral stents placed for severe urinary issues earlier this year in and had apparently severe sepsis. Source: patient Date seen by provider: Mar 12, 2020 Time Seen by Provider: 12:20 Attending Physician Doroteo Veronica MD PCP No,Local Physician Consult Date of Admission Mar 12, 2020 at 11:33 Home Medications Home Medications Reviewed patient Home Medication Reconciliation performed by pharmacy medication reconciliations accounts payable technician and/or nursing. Patients Allergies have been reviewed. Allergies Coded Allergies: Sulfa (Sulfonamide Antibiotics) (Verified Allergy, Unknown, 11/26/06) lisinopril (Verified Allergy, Unknown, 07/26/14) metformin (Verified Allergy, Unknown, 07/26/14) ZXP-Knhymu-Ijhkbn Hx Patient Social History Alcohol Use: Occasionally Uses Recreational Drug Use: No Type Used: Cigarettes Recent Foreign Travel: No Contact w/other who traveled: No Recent Hopitalizations: No Recent Infectious Disease Expo: No Immunizations Up To Date Tetanus Booster (TDap): Less than 5yrs Date of Pneumonia Vaccine: Aug 25, 2013 Date of Influenza Vaccine: May 22, 2018 Past Medical History PMHx: COPD DMII HTN SurgHx: Knee replacment bilaterally Cholecystectomy Hysterectomy C section Ankle surgery Eye surgery Family Medical History Significant Family History: Heart Disease, Cancer, CVA, Diabetes Family History: Alcoholism 09 SISTER 09 SISTER Cancer 03 MOTHER Cataract 09 SISTER Family history: Cardiovascular disease 09 BROTHER (HEART ATTACK) Family history: Diabetes mellitus 09 SISTER Family history: Glaucoma 09 SISTER 09 SISTER Family history: Hypertension 09 BROTHER 09 BROTHER 09 BROTHER Family history: Osteoporosis 09 SISTER 09 SISTER Kidney disease 09 SISTER Seizure disorder Stroke 09 BROTHER No Family History of: Abdominal aortic aneurysm Cancer of colon Chest pain Congenital heart disease Congestive heart failure Cystic fibrosis Dementia Dysphagia Family history: Allergy Family history: Alzheimer's disease Family history: Arthritis Family history: Breast disease Family history: Coronary thrombosis Family history: Gastrointestinal disease Headache Hearing loss Heart disease Hereditary disease History of - anemia History of - disorder History of - respiratory disease History of drug abuse Human immunodeficiency virus (HIV) seropositivity Hypercholesterolemia Infertile Malignant neoplasm of lung Myocardial infarction Parkinson's disease Prostate cancer Psychotic disorder Tuberculosis Visual impairment Review of Systems ([facility]) Constitutional: No fever EENTM: No nose congestion, No throat pain Respiratory: cough, short of breath Cardiovascular: chest pain Gastrointestinal: diarrhea, nausea, vomiting Genitourinary: dysuria, pain Musculoskeletal: back pain Skin: No rash Reviewed Test Results Reviewed Test Results Lab Laboratory Tests Test 03/12/20 08:30 03/12/20 09:00 03/12/20 10:31 03/12/20 10:38 Range/Units Glucometer 350 H 216 H 70-110 MG/DL White Blood Count 9.7 4.3-11.0 10^3/uL Red Blood Count 4.46 4.35-5.85 10^6/uL Hemoglobin 14.1 11.5-16.0 G/DL Hematocrit 43 35-52 % Mean Corpuscular Volume 97 80-99 FL Mean Corpuscular Hemoglobin 32 25-34 PG Mean Corpuscular Hemoglobin Concent 33 32-36 G/DL Red Cell Distribution Width 14.9 H 10.0-14.5 % Platelet Count 184 130-400 10^3/uL Mean Platelet Volume 10.0 7.4-10.4 FL Neutrophils (%) (Auto) 62 42-75 % Lymphocytes (%) (Auto) 27 12-44 % Monocytes (%) (Auto) 9 0-12 % Eosinophils (%) (Auto) 2 0-10 % Basophils (%) (Auto) 0 0-10 % Neutrophils # (Auto) 6.0 1.8-7.8 X 10^3 Lymphocytes # (Auto) 2.6 1.0-4.0 X 10^3 Monocytes # (Auto) 0.8 0.0-1.0 X 10^3 Eosinophils # (Auto) 0.2 0.0-0.3 10^3/uL Basophils # (Auto) 0.0 0.0-0.1 10^3/uL Sodium Level 137 135-145 MMOL/L Potassium Level 4.3 3.6-5.0 MMOL/L Chloride Level 100 98-107 MMOL/L Carbon Dioxide Level 23 21-32 MMOL/L Anion Gap 14 5-14 MMOL/L Blood Urea Nitrogen 11 7-18 MG/DL Creatinine 1.08 0.60-1.30 MG/DL Estimat Glomerular Filtration Rate > 60 BUN/Creatinine Ratio 10 Glucose Level 364 H 70-105 MG/DL Calcium Level 9.1 8.5-10.1 MG/DL Corrected Calcium 9.2 8.5-10.1 MG/DL Total Bilirubin 0.5 0.1-1.0 MG/DL Aspartate Amino Transf (AST/SGOT) 33 5-34 U/L Alanine Aminotransferase (ALT/SGPT) 25 0-55 U/L Alkaline Phosphatase 79 40-136 U/L C-Reactive Protein High Sensitivity 1.60 H 0.00-0.50 MG/DL Total Protein 8.2 6.4-8.2 GM/DL Albumin 3.9 3.2-4.5 GM/DL Urine Color YELLOW Urine Clarity CLOUDY Urine pH 6.0 5-9 Urine Specific Chama >=1.030 1.016-1.022 Urine Protein 2+ H NEGATIVE Urine Glucose (UA) 2+ H NEGATIVE Urine Ketones NEGATIVE NEGATIVE Urine Nitrite NEGATIVE NEGATIVE Urine Bilirubin NEGATIVE NEGATIVE Urine Urobilinogen 0.2 < = 1.0 MG/DL Urine Leukocyte Esterase 1+ H NEGATIVE Urine RBC (Auto) 1+ H NEGATIVE Urine RBC 5-10 H /HPF Urine WBC TNTC H /HPF Urine Squamous Epithelial Cells 25-50 H /HPF Urine Crystals NONE /LPF Urine Bacteria MODERATE H /HPF Urine Casts NONE /LPF Urine Mucus NEGATIVE /LPF Urine Culture Indicated YES Test 03/12/20 11:53 03/12/20 12:39 Range/Units Lactic Acid Level 1.59 0.50-2.00 MMOL/L Physical Exam-([facility]) Physical Exam Vital Signs VS - Last 72 Hours, by Label 03/12/20 03/12/20 03/12/20 08:27 09:48 12:07 Temp 36.6 Pulse 92 90 Resp 18 18 B/P (MAP) 142/106 (118) 140/94 Pulse Ox 93 95 O2 Delivery Room Air Nasal Cannula Room Air O2 Flow Rate 2.00 Capillary Refill : Less Than 3 Seconds General Appearance: no apparent distress Respiratory: lungs clear, normal breath sounds Cardiovascular: regular rate, rhythm, no murmur Gastrointestinal: non tender, soft, abnormal bowel sounds (hyperactive) Extremities: no pedal edema Neurologic/Psychiatric: alert, normal mood/affect Skin: normal color, warm/dry Assessment/Plan Assessment/Plan Admission Status: Observation (1) Uncontrolled diabetes mellitus with hyperglycemia, with long-term current use of insulin Status: Acute Assessment & Plan: Sliding scale insulin, advance diet as tolerated to diabetic diet. (2) Diarrhea Status: Acute Assessment & Plan: Uncertain etiology, will check COVID19 given worse than usual shortness of breath as well. (3) Vomiting Status: Acute Assessment & Plan: Anti-emetics, IVF (4) UTI (urinary tract infection) Status: Acute Assessment & Plan: Possibly pyelonephritis with flank pain, start ceftriaxone, await culture. Qualifiers: (5) HTN Status: Acute (6) COPD (chronic obstructive pulmonary disease) Assessment & Plan: Resume home meds. (7) DVT prophylaxis Status: Acute Assessment & Plan: Enoxaparin DOROTEO VERONICA MD Mar 12, 2020 13:08
[2020-03-12] MEDS ORDERED: RT-ALBUTEROL INHALER HFA (VENTOLIN HFA) 18 GM IH PRN (13:15)
[2020-03-12] MEDS: ACETAMINOPHEN 500 MG TAB (TYLENOL) PO SCH ×2 (13:41→20:58)
[2020-03-12 13:44] VITALS: BP 140/94
[2020-03-12 13:46] VITALS: BP 140/94
[2020-03-12] MEDS ORDERED: INSU100V6 SQ (14:34)
[2020-03-12] MEDS ORDERED: CYCL10TA9 PO (14:34)
[2020-03-12] MEDS ORDERED: RT-ALBUINH IH (14:43)
[2020-03-12] MEDS ORDERED: MTP100TCR PO (14:54)
[2020-03-12] MEDS ORDERED: ATOR40TA70 PO (14:54)
[2020-03-12] MEDS: NS IV 1000 ML 1,000 ML IV SCH ×2 (14:55→21:37)
--- NOTE | 2020-03-12 14:55 | NUR ---
I SPOKE WITH THE PT (I CALLED HER ROOM PHONE) WENT THRU THE EXT MED HISTORY AND CALLED SHAINA TO COMPLETE THE MED REC THE FOLLOWING ARE FILL DATES NOT SHOWING ON THE EXT MED HISTORY (FILLED AT [facility] [place]): 01-12-2020 METOPROLOL SUCC 100MG #180/90DS 01-27-2020 BREO ELILIPTA 200/25 #1 01-27-2020 CYCLOBENZAPRINE 10MG #90/30DS 01-27-2020 CITALOPRAM 20MG #90/90DS 02-01-2020 LANTUS #1 VIAL /40DS AMITRIPTYLINE 25MG AND ATORVASTATIN 40MG WERE BOTH FILLED ON 10-14-2019 #90/90DS- I DID DOCUMENT THE PAST DUE FILLS FOR EACH ON THE MED REC OTC MEDS: BIOTIN
[2020-03-12 15:32] VITALS: BP 177/90
[2020-03-12] MEDS: inSUlin ASPART (NovoLOG) 1 UNIT/0.01 ML (CHARGE PER UNIT) SC SCH ×2 (16:35→20:58)
[2020-03-12] MEDS: fentaNYL INJECTION 100 MCG/2 ML AMP IVP PRN ×2 (16:36→21:37)
[2020-03-12] MEDS: KETOROLAC 30 MG/ML VIAL IV SCH (17:27)
[2020-03-12 19:40] VITALS: BP 140/76
[2020-03-12] MEDS: meTOprolol TARTRATE 50 MG (LOPRESSOR) TAB PO SCH (20:57)
[2020-03-12] MEDS ORDERED: SIMvastatin 20 MG (ZOCOR) TAB PO SCH (21:00)
[2020-03-13] MEDS ORDERED: CYCLOBENZAPRINE 10 MG (FLEXERIL) TAB PO PRN
[2020-03-13] MEDS: KETOROLAC 30 MG/ML VIAL IV SCH ×3 (01:03→12:10)
[2020-03-13 01:04] VITALS: BP 126/69
[2020-03-13 04:00] VITALS: BP 127/62
[2020-03-13] MEDS: NS IV 1000 ML 1,000 ML IV SCH ×3 (04:58→20:39)
[2020-03-13] MEDS: ACETAMINOPHEN 500 MG TAB (TYLENOL) PO SCH ×3 (05:03→22:18)
[2020-03-13 05:26] LABS: HEMOGLOBIN 12.4 G/DL (11.5-16.0); RED CELL DISTRIBUTION WIDTH 14.3 % (10.0-14.5); WHITE BLOOD COUNT 5.8 10^3/uL (4.3-11.0)
[2020-03-13] MEDS: fentaNYL INJECTION 100 MCG/2 ML AMP IVP PRN ×4 (05:29→20:38)
[2020-03-13] MEDS: inSUlin ASPART (NovoLOG) 1 UNIT/0.01 ML (CHARGE PER UNIT) SC SCH ×4 (05:29→20:39)
--- NOTE | 2020-03-13 05:33 | NUR ---
DR HORAN NOTIFIED OF PT NEGATIVE COVID19 RESULTS. ORDER TO REMOVE OUT OF ISOLATION RECEIVED.
[2020-03-13 05:45] LABS: CHLORIDE 106 MMOL/L (98-107); POTASSIUM 3.4 MMOL/L (3.6-5.0); SODIUM 140 MMOL/L (135-145)
[2020-03-13 05:46] LABS: CALCIUM 7.9 MG/DL (8.5-10.1)
[2020-03-13 05:47] LABS: GLUCOSE 216 MG/DL (70-105)
[2020-03-13 05:48] LABS: CARBON DIOXIDE 24 MMOL/L (21-32)
[2020-03-13 05:50] LABS: CREATININE SERUM 0.82 MG/DL (0.60-1.30); GFR ESTIMATED > 60
[2020-03-13 05:51] LABS: BUN/CREATININE RATIO 11
[2020-03-13 08:00] VITALS: BP 145/80
[2020-03-13] MEDS ORDERED: KCL 20 MEQ TAB (K-DUR) PO NR (08:15)
[2020-03-13] MEDS ORDERED: amLODIPine 2.5MG (NORVASC) TAB PO SCH (09:00)
[2020-03-13] MEDS: meTOprolol TARTRATE 50 MG (LOPRESSOR) TAB PO SCH (09:15)
[2020-03-13] MEDS: ASPIRIN E.C. 81 MG (ECOTRIN) TAB PO SCH (09:15)
[2020-03-13] MEDS: ENOXAPARIN 40 MG/0.4 ML (LOVENOX) SYR SC SCH (09:16)
[2020-03-13] MEDS: ADVAIR HFA 115/21 MCG INHALER 8 GM IH SCH ×2 (10:51→22:12)
--- NOTE | 2020-03-13 11:49 | NUR ---
CM/SS: Visited with pt as to plan for discharge Plan: Pt to return home - living with her sister with no identified services at this time Summary: Pt reports moving here from [place], [place]. living with her sister due to sister having some health issues. Pt reports she has medicare and medicare [employer]. She also reports needing to apply for [facility] Medicaid, and has a need for food stamps. Pt is given the applications from the worker. Explanation is given for each. Pt verbalizes understanding. Pt reports she had seen Maria Dolores Giron for physician, and due to her insurance she will needs to see someone at [facility]. She primarily will need to go there due to the pharmacy and being able to get the medications at a really low cost. Pt reports feeling better. Pt does not feel as if she will need to have any services when she goes home. She does wear oxygen at night and PRN. Pt does have a way home - as she sister can pick her up when time. Pt thanks this worker for information and the visit. This worker will follow up.
--- NOTE | 2020-03-13 11:52 | Progress Note ---
Subjective Subjective/Events-last exam Afebrile, feeling somewhat better. Pain is a little improved. Breathing feels better with inhaler. Focused Exam Lactate Level 03/12/20 11:53: Lactic Acid Level 1.59 Objective Exam Last Set of Vital Signs Vital Signs Date Time Temp Pulse Resp B/P (MAP) Pulse Ox O2 Delivery O2 Flow Rate FiO2 03/13/20 10:51 94 Nasal Cannula 2.00 03/13/20 08:00 36.0 66 16 145/80 (101) Capillary Refill : Less Than 3 Seconds I&O Intake and Output 03/13/20 00:00 Intake Total 1800 ml Output Total 0 ml Balance 1800 ml Intake Oral 800 ml IV Total 1000 ml Output Urine Total 0 ml # Voids 4 # Bowel Movements 1 General: Alert, No Acute Distress Lungs: Clear to Auscultation, Normal Air Movement Heart: Regular Rate, No Murmurs Abdomen: Normal Bowel Sounds, Soft Neuro: Normal Speech Psych/Mental Status: Mood NL Results/Procedures Lab Laboratory Tests 03/12/20 11:53: Lactic Acid Level 1.59 03/12/20 12:39: Coronavirus (COVID-19)(PCR) Negative 03/12/20 15:39: Glucometer 234H 03/12/20 19:46: Glucometer 306H 03/13/20 00:59: Glucometer 153H 03/13/20 05:11: Glucometer 214H 03/13/20 05:15: White Blood Count 5.8, Red Blood Count 3.93L, Hemoglobin 12.4, Hematocrit 38, Mean Corpuscular Volume 98, Mean Corpuscular Hemoglobin 32, Mean Corpuscular Hemoglobin Concent 32, Red Cell Distribution Width 14.3, Platelet Count 145, Mean Platelet Volume 10.0, Sodium Level 140, Potassium Level 3.4L, Chloride Level 106, Carbon Dioxide Level 24, Anion Gap 10, Blood Urea Nitrogen 9, Creatinine 0.82, Estimat Glomerular Filtration Rate > 60, BUN/Creatinine Ratio 11, Glucose Level 216H, Calcium Level 7.9L 03/13/20 11:14: Glucometer 217H Microbiology 03/12/20 Blood Culture - Preliminary, Resulted No growth Assessment/Plan Assessment/Plan (1) Uncontrolled diabetes mellitus with hyperglycemia, with long-term current use of insulin Status: Acute Assessment & Plan: Sliding scale insulin, advance diet as tolerated to diabetic diet. Restart home detemir 25 units daily. (2) Diarrhea Status: Acute Assessment & Plan: Uncertain etiology, will check COVID19 given worse than usual shortness of breath as well. Sars-CoV-2 negative, still has diarrhea. Add probiotic. (3) Vomiting Status: Acute Assessment & Plan: Anti-emetics, IVF (4) UTI (urinary tract infection) Status: Acute Assessment & Plan: Possibly pyelonephritis with flank pain, start ceftriaxone, await culture. Qualifiers: (5) HTN Status: Acute (6) COPD (chronic obstructive pulmonary disease) Assessment & Plan: Resume home meds. (7) DVT prophylaxis Status: Acute Assessment & Plan: Enoxaparin Clinical Quality Measures DVT/VTE Risk/Contraindication: Risk Factor Score Per Nursin RFS Level Per Nursing on Admit: 4+=Very High DOROTEO HORAN MD Mar 13, 2020 11:51
[2020-03-13 12:00] VITALS: BP 142/56
[2020-03-13] MEDS ORDERED: fluCOnazole (DIFLUCAN) 100 MG TAB PO NR (12:00)
[2020-03-13] MEDS: cefTRIAXone FOR IV USE 1,000 MG in WATER (STERILE) FOR INJECTION 10 ML IV SCH (12:03)
[2020-03-13] MEDS: ONDANSETRON 4 MG (ZOFRAN) ORAL DISSOLVE TAB PO PRN ×2 (14:13→22:18)
[2020-03-13 15:30] VITALS: BP 148/81
[2020-03-13] MEDS ORDERED: MELATONIN 3 MG TABLET PO PRN (19:15)
[2020-03-13 20:00] VITALS: BP 153/79
[2020-03-13] MEDS: meTOprolol SUCCINATE 100 MG (TOPROL XL) TAB PO SCH (20:37)
[2020-03-13] MEDS: IBUPROFEN 800 MG (MOTRIN) TAB PO SCH (20:37)
--- NOTE | 2020-03-13 22:10 | NUR ---
Rn notified RT advair was ordered. no order for RT to give advair and no indication on RT card from report. Addendum: 03/13/20 at 2211 by REDD PENA RT Amended: Links added.
[2020-03-14] VITALS: BP 154/82
[2020-03-14] MEDS: fentaNYL INJECTION 100 MCG/2 ML AMP IVP PRN ×3 (01:08→09:34)
[2020-03-14 04:02] VITALS: BP 150/88
[2020-03-14] MEDS: NS IV 1000 ML 1,000 ML IV SCH ×2 (04:08→12:43)
[2020-03-14] MEDS: IBUPROFEN 800 MG (MOTRIN) TAB PO SCH ×2 (04:11→12:43)
[2020-03-14 05:57] LABS: HEMOGLOBIN 11.8 G/DL (11.5-16.0); MEAN PLATELET VOLUME 9.7 FL (7.4-10.4); RED CELL DISTRIBUTION WIDTH 14.8 % (10.0-14.5)
[2020-03-14] MEDS: ACETAMINOPHEN 500 MG TAB (TYLENOL) PO SCH (05:57)
[2020-03-14] MEDS: inSUlin ASPART (NovoLOG) 1 UNIT/0.01 ML (CHARGE PER UNIT) SC SCH ×2 (05:58→12:42)
[2020-03-14 06:05] LABS: CHLORIDE 109 MMOL/L (98-107); POTASSIUM 3.9 MMOL/L (3.6-5.0); SODIUM 141 MMOL/L (135-145)
[2020-03-14 06:06] LABS: CALCIUM 7.9 MG/DL (8.5-10.1)
[2020-03-14 06:07] LABS: GLUCOSE 156 MG/DL (70-105)
[2020-03-14 06:08] LABS: CARBON DIOXIDE 22 MMOL/L (21-32)
[2020-03-14 06:11] LABS: BUN/CREATININE RATIO 7; CREATININE SERUM 0.75 MG/DL (0.60-1.30); GFR ESTIMATED > 60
[2020-03-14] MEDS: ADVAIR HFA 115/21 MCG INHALER 8 GM IH SCH (06:58)
[2020-03-14 08:00] VITALS: BP 144/81
[2020-03-14] MEDS: LACTOBACILLUS ACIDOPHILUS (PROBIOTIC) CAPSULE PO SCH ×2 (08:54→12:43)
[2020-03-14] MEDS: meTOprolol SUCCINATE 100 MG (TOPROL XL) TAB PO SCH (08:54)
[2020-03-14] MEDS: ASPIRIN E.C. 81 MG (ECOTRIN) TAB PO SCH (08:54)
[2020-03-14] MEDS: ENOXAPARIN 40 MG/0.4 ML (LOVENOX) SYR SC SCH (08:54)
--- NOTE | 2020-03-14 09:40 | NUR ---
FENTANYL 25 IV FOR PAIN.
--- NOTE | 2020-03-14 10:32 | NUR ---
CM/SS: Visited with pt as to plan for discharge Plan: Pt will return home with no identified services Summary: Pt is feeling better and is hopeful to go home today. Pt is provided the information for Medicare to get a replacement cared, and reminded about the applications for [facility] Medicaid as well as food stamps. Pt also is reminded about a follow up appt to get established with physician at [facility]. Pt is aware that an appt will be made for her. Information on the appt. is provided to pts RN. Pt is wished well, and thanks this worker for her help.
[2020-03-14] MEDS: cefTRIAXone FOR IV USE 1,000 MG in WATER (STERILE) FOR INJECTION 10 ML IV SCH (11:30)
[2020-03-14] MEDS ORDERED: INSU100V6 SQ (11:36)
[2020-03-14] MEDS ORDERED: FLUT1BLS IH (11:36)
[2020-03-14] MEDS ORDERED: AMIT25TA9 PO (11:36)
[2020-03-14] MEDS ORDERED: ASPI-983 PO (11:37)
[2020-03-14] MEDS ORDERED: RT-ALBUINH IH (11:37)
[2020-03-14] MEDS ORDERED: CEFD300C3 PO (11:37)
[2020-03-14] MEDS ORDERED: CYCL10TA9 PO (11:37)
[2020-03-14] MEDS ORDERED: ATOR40TA70 PO (11:37)
[2020-03-14] MEDS ORDERED: MTP100TCR PO (11:37)
[2020-03-14 12:00] VITALS: BP 175/88
--- NOTE | 2020-03-14 12:00 | NUR ---
[facility] CORRECTED MED TRANSFER TO [facility]. SHAINA NOTIFIED TO CANCEL RX AT THEIR PHARMACY.
--- NOTE | 2020-03-14 12:39 | NUR ---
CALLED [facility] TO VERIFY RECEIPT OF 9 PRESCRIPTIONS.
--- NOTE | 2020-03-14 12:47 | Discharge Summary ---
Discharge Summary Hospital Course Problems/Diagnosis: (1) Uncontrolled diabetes mellitus with hyperglycemia, with long-term current use of insulin Status: Acute Assessment & Plan: Sliding scale insulin, advance diet as tolerated to diabetic diet. Restart home detemir 25 units daily. (2) Diarrhea Status: Acute Assessment & Plan: Uncertain etiology, will check COVID19 given worse than usual shortness of breath as well. Sars-CoV-2 negative, still has diarrhea. Add probiotic. (3) Vomiting Status: Resolved Resolution Date/Time: 03/14/20 @ 12:44 Assessment & Plan: Anti-emetics, IVF (4) UTI (urinary tract infection) Status: Acute Assessment & Plan: Possibly pyelonephritis with flank pain, start ceftriaxone, await culture. Culture with 3 or more isolates, but given symptoms and evidence of UTI, will treat with cefdinir for 5 more days on d/c. Qualifiers: (5) HTN Status: Chronic (6) COPD (chronic obstructive pulmonary disease) Status: Chronic Assessment & Plan: Resume home meds. Hospital Course Date of Admission: Mar 12, 2020 at 11:33 Admission Diagnosis : Family Physician/Provider: Petty Almonte Physician Date of Discharge: 03/14/20 Discharge Diagnosis: See problem list Hospital Course: See problem list. Patient had problems with getting medications due to insurance running out, will obtain whatever meds we can from repository and samples, instructed patient to go to clinic to get meds after d/c. Labs and Pending Lab Test: Laboratory Tests 03/13/20 15:26: Glucometer 189H 03/13/20 20:26: Glucometer 192H 03/14/20 05:46: White Blood Count 6.0, Red Blood Count 3.70L, Hemoglobin 11.8, Hematocrit 37, Mean Corpuscular Volume 100H, Mean Corpuscular Hemoglobin 32, Mean Corpuscular Hemoglobin Concent 32, Red Cell Distribution Width 14.8H, Platelet Count 150, Mean Platelet Volume 9.7, Sodium Level 141, Potassium Level 3.9, Chloride Level 109H, Carbon Dioxide Level 22, Anion Gap 10, Blood Urea Nitrogen 5L, Creatinine 0.75, Estimat Glomerular Filtration Rate > 60, BUN/Creatinine Ratio 7, Glucose Level 156H, Calcium Level 7.9L 03/14/20 05:58: Glucometer 161H 7/23/20 11:37: Glucometer 148H Microbiology 03/12/20 Blood Culture - Preliminary, Resulted No growth 03/12/20 Urine Culture - Final, Complete 3 or more isolates Home Meds Active Cefdinir 300 Mg Capsule 300 Mg PO BID Aspirin EC (Aspirin) 81 Mg Tablet.dr 81 Mg PO DAILY Atorvastatin Calcium 40 Mg Tablet 40 Mg PO HS LAST FILLED 10-14-2019 #90 Metoprolol Succinate 100 Mg Tab.er.24h 100 Mg PO BID Proair Hfa (Albuterol Sulfate) 1 Puff Puff 2 Puff IH Q4H PRN Cyclobenzaprine HCl 10 Mg Tablet 10 Mg PO TID PRN Lantus (Insulin Glargine,Hum.rec.anlog) 100 Unit/1 Ml Vial 25 Unit SQ HS Amitriptyline HCl 25 Mg Tablet 25 Mg PO HS LAST FILLED 10-14-2019 #90 Breo Ellipta 200-25 Mcg INH (Fluticasone/Vilanterol) 1 Each Blst.w.dev 1 Each IH DAILY Reported Citalopram HBr (Citalopram Hydrobromide) 20 Mg Tablet 20 Mg PO DAILY Biotin 5,000 Mcg Tab.rapdis 5,000 Mcg PO DAILY Assessment/Pt DC Instructions Establish care appointment with Sheryl Narvaez APRN at [facility] on 03/20 at 11:20 am. Discharge Diet: ADA Diet Activity as Tolerated: Yes Discharge Physical Examination Allergies: Coded Allergies: Sulfa (Sulfonamide Antibiotics) (Verified Allergy, Unknown, 11/26/06) lisinopril (Verified Allergy, Unknown, 07/26/14) metformin (Verified Allergy, Unknown, 07/26/14) General Appearance: No Apparent Distress, WD/WN Respiratory: Lungs Clear, Normal Breath Sounds Cardiovascular: Regular Rate, Rhythm, No Edema, No Murmur Gastrointestinal: Normal Bowel Sounds, Non Tender, Soft Skin: Normal Color, Warm/Dry Neurologic/Psychiatric: Alert, Normal Mood/Affect Copy Copies To 1: Sheryl Narvaez APRN Clinical Quality Measures DVT/VTE Risk/Contraindication: Risk Factor Score Per Nursin RFS Level Per Nursing on Admit: 4+=Very High DOROTEO HORAN MD Mar 14, 2020 12:47
--- NOTE | 2020-03-14 13:08 | NUR ---
REVIEWED RX AND INST WITH PT. CONFIRMS UNDERSTANDING. AWAITING RIDE.
--- NOTE | 2020-03-14 13:18 | NUR ---
DC'D PER WC TO HOME WITH SISTER.
--- NOTE | 2020-03-14 13:33 | NUR ---
RD ASSESSMENT PMHx: HTN; DM; COPD PT INTERACTION: Pt was awake and pleasant during nutrition assessment. Pt states current appetite is "non-existent." Note avg PO intake >75% x1d, per chart review. Pt states following a diabetic diet at home, and has no issues with chewing/swallowing food. Pt states recent issues with nausea, vomiting, and diarrhea. Note last BM was 03/13, and pt not currently on bowel regimen per chart review. Pt states recent 10# wt loss x1w, d/t n/v/d. Note unable to determine recent wt hx, per chart review. Pt states current DM management is "pretty terrible," and was asking for information to help control DM at home. Note unable to determine recent wt hx, per chart review. ABNORMAL NUTRITION-RELATED LAB VALUES LOW: BUN 5; Ca 7.9 HIGH: Ca 7.9; glu 156 Est. kcal needs: 1400 kcal | 15 kcal/kg Est. Pro needs: 75 g Pro | 0.8 g Pro/kg PES STATEMENT: Food- and nutrition-related knowledge deficit (NB-1.1) related to lack of prior nutrition-related education as evidenced by pt seeking nutrition information on DM management INTERVENTION: Continue with current diet order of CHO 60g/m 1snack diet. Discussed and provided handout on DM management. Discussed CHO counting, portion control, fiber, wt loss, and smartphone applications. Pt verbalized understanding of information provided. Provided pt with contact information should she have questions upon discharge. Will continue to follow and reassess as pt needs, intake, and status change. MONITOR/EVALUATE: PO Intake; Plan of Care; Hydration Status; Weight Status; Lab Values Giulia Alvarez, , RD, LD
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
--- OUTSIDE RECORDS SUMMARY | 2020-03-16 13:44 | XMS REPORT | Encounter Summary ---
Author Author [facility] Organization [facility] Address Unknown Phone Unavailable Care Team Providers Care Banana Loader Name Role Phone Ebony Sharp MD PCP Reason for Visit * Reason Comments Other Encounter Details Care Team Description Date Type Department Ebony Sharp MD [address] [address] [place], [place] [id number] Other 12/31/2019 Refill [facility] Primar y Care - [place] [address] [place], [place] [id number] Social History Date Tobacco Use Types Packs/Day [...]
--- OUTSIDE RECORDS SUMMARY | 2020-03-16 13:44 | XMS REPORT | Clinical Summary ---
Author Author [facility] Organization [facility] Address Unknown Phone Unavailable Care Team Providers Care Save All Operator Name Role Phone Angela Galloway MD Unavailable Yassine Cano MD Unavailable Chantel Don DO Unavailable Jeremy Franco MD Unavailable Unavailable Angela Galloway MD PCP Joanna Causey RD Unavailable Unavailable Leeanna Cheema RN Unavailable Unavailable Patrick Astorga MD Unavailable April Weaver DO Unavailable Genevieve Chavira MD Unavailable Gege Joseph MD Unavailable Jermaine Penaloza MD Unavailable Bijan Ambrocio M.S.M., MD Unavailable [phone] Smiley Barahona RN Unavailable Unavailable Source Comments Some departments are not documenting in the electronic medical record. If you d o not see the information that you expected, contact Release of Information in [facility] Health Information Management department at [phone] for further assistan ce in locating additional records.[facility] Allergies Comments Active Allergy Reactions Severity Noted [...] tablet mouth twice 3 daily. Active Insulin Pomeroy 100 Each 11 (Disposable) (ULTICARE) 3 29 [...] of sm oking. - recommend seeing a Airfreight Operations Agent for further evaluation as she has been [...] filefrom Last 3 Months Advance Directives Patient Photonics Technician Explanation Type Date Recorded Advance 05/02/2013 4:38 PM Directive/DPOA
--- OUTSIDE RECORDS SUMMARY | 2020-03-16 13:44 | XMS REPORT | Continuity of Care Document ---
Author Author [facility] [employer] Address Unknown Phone Unavailable Care Team Providers Care Clerical Associate Name Role Phone [facility] Unavailable Unavailable Problems Problem Status Onset Date Classification Date Reported Comments Source GASTRO-ESOPHAGEAL REFLUX DISEASE WITHOUT Active 02/21/2016 [facility] Medications No Data Provided for This Section Allergies, Adverse Reactions, Alerts No Known Medication Allergies Immunizations No Data Provided for This Section Results Order Name Results Value Reference Range Date Interpretation Comments Source HP Urease H pylori Positive Negative 02/22/2016 @ Recent ingestion of antibiotics, bismuth , proton pump inhibitors, or sucralfate can inhibit H. pylori causing false negative results.
[facility] No data available for this section No data available for this section [facility] No data available for this section No data available for this section [address] [place] [address] Pathology Reports No Data Provided for This [...] Provider ADM Date DC Date Status Source [facility] Outpatient [id number] HAYDEE MOSES MD 10/06/2016 10/07/2016 [facility] 006 006 # [id number] DX INT HAYDEE MOSES MD 03/03/2016 Active On license of [facility] Non-Patient [id number] HAYDEE MOSES MD 02/21/2016 02/22/[address] [place] [address] 006 006 N [id number] LAB HAYDEE MOSES MD 02/21/2016 02/21/2016 Active [facility] Procedures No Data Provided for This [...]
--- OUTSIDE RECORDS SUMMARY | 2020-03-16 13:44 | XMS REPORT | Encounter Summary ---
Author Author [facility] Organization [facility] Address Unknown Phone Unavailable Care Team Providers Care Line Repairer Tower Name Role Phone Ebony Sharp MD PCP Encounter Details Care Team Description [place] [address] [place] [address] [phone] 02/28/2020 Telephone [facility] [address] [place], [place] [id number] Social History Date Tobacco Use Types Packs/Day [...]
--- OUTSIDE RECORDS SUMMARY | 2020-03-16 13:45 | XMS REPORT | Encounter Summary ---
Author Author [facility] Organization [facility] Address Unknown Phone Unavailable Care Team Providers Care Cognos Architect Name Role Phone Ebony Sharp MD PCP Reason for Visit * HH Auth Cert Referred By Contact Referred To Contact Status Reason Specialty Diagnoses / Procedures Encounter Details Care Team Description Date Type Department Shannon Rangel LPN SN HOME VISIT 10/19/2019 Home Care Visit [facility] Home Care and page [facility] [address] [facility] [address] [place] [phone] Social History Date Tobacco Use Types Packs/Day [...] Comments Vital Sign 120/82 10/19/2019 3:45 PM SLIP OPERATOR Blood Pressure 66 10/19/2019 3:45 PM SLIP OPERATOR Pulse 36.6 C (97.8 F) 10/19/2019 3:45 PM SLIP OPERATOR Temperature 16 10/19/2019 3:45 PM SLIP OPERATOR Respiratory Rate 91% 10/19/2019 3:45 PM SLIP OPERATOR Oxygen Saturation - - Inhaled Oxygen Concentration - - Weight - - Height - - Body Mass Index documented in this encounter Plan of Treatment Not on filedocumented as of this encounter Visit Diagnoses Not on filedocumented in this encounter Home Health Visit - Care Plan Visit Type - SN Home Visit Discipline - Nursing Home Status Goals Interventions Problem Descriptio Start Date n Active 1 goal linked to scheduled/documented intervention 1 goal intervention scheduled/documented in this visit SN Cardiac: Coping 09/09/2019 Alteration from Lifestyle Changes Disciplines: Nursing Home Active 1 goal linked to scheduled/documented intervention 1 goal intervention scheduled/documented in this visit SN DM: Knowledge Deficit 09/09/2019 Related to Diabetes Disciplines: Nursing Home Active 1 goal linked to scheduled/documented intervention 1 goal intervention scheduled/documented in this visit SN : Knowledge Deficit 09/09/2019 Related to UTI Disciplines: Nursing Home Active 1 goal linked to scheduled/documented [...] Patient instructed on complications of diabetes mellitus: Classified Copy Control Clerk Complications of Diabetes (Romulo). Patient response to [...] Goal: Directive yes Shared: Durable Power of Hotel Or Motel Manager Advance (DPOA), Health Care Power directives of Hotel Or Motel Manager (HCPOA) and obtained, Living Will or [...] Preference short of breath, go to s religious, visit family, Goal: cook own meals and bathe Shared: and dress without Patient/Ca assistance. regiver will progress towards goals and achieve them documented in this encounter
--- OUTSIDE RECORDS SUMMARY | 2020-03-16 13:45 | XMS REPORT | Encounter Summary ---
Author Author [facility] Organization [facility] Address Unknown Phone Unavailable Care Team Providers Care Glass Tinter Name Role Phone Ebony Sharp MD PCP Reason for Visit * HH Auth Cert Referred By Contact Referred To Contact Status Reason Specialty Diagnoses / Procedures Encounter Details Care Team Description Date Type Department Aury Louis RN SN OASIS DISCHARGE 10/26/2019 Home Care Visit [facility] Home Care and [facility] [address] [facility] [address] [place] [address] Social History Date Tobacco Use [...] Comments Vital Sign 165/100 10/26/2019 2:27 PM MEDICAL ASSISTANT DERMATOLOGY Blood Pressure 78 10/26/2019 2:27 PM MEDICAL ASSISTANT DERMATOLOGY Pulse 35.9 C (96.6 F) 10/26/2019 2:27 PM MEDICAL ASSISTANT DERMATOLOGY Temperature 14 10/26/2019 2:27 PM MEDICAL ASSISTANT DERMATOLOGY Respiratory Rate 95% 10/26/2019 2:27 PM MEDICAL ASSISTANT DERMATOLOGY Oxygen Saturation - - Inhaled Oxygen Concentration - - Weight - - Height - - Body Mass Index documented in this encounter Progress Notes * Aury Louis RN - 10/26/2019 12:00 PM MEDICAL ASSISTANT DERMATOLOGY Patient discharged from [facility] today in good condition. She will be moving to [place] in a few days to live with her sister who has macular de generation. CAL ASSISTANT DERMATOLOGY documented in this encounter Plan of Treatment Not on filedocumented as of this encounter Visit Diagnoses Not on filedocumented in this encounter Home Health Visit - Care Plan Visit Type - SN OASIS Discharge Discipline - Alf Status Goals Interventions Problem Descriptio Start Date n Resolved on 10/26/2019 1 goal linked to scheduled/documented intervention 1 goal intervention scheduled/documented in this visit SN DM: Coping Alteration 09/09/2019 from Lifestyle Changes Disciplines: Alf Resolved on 10/26/2019 1 goal linked to scheduled/documented intervention 1 goal intervention scheduled/documented in this visit SN DM: Knowledge Deficit 09/09/2019 Related to Diabetes Disciplines: Alf Resolved on 10/26/2019 1 goal linked to scheduled/documented intervention 1 goal intervention scheduled/documented in this visit SN : Knowledge Deficit 09/09/2019 Related to UTI Disciplines: Alf Resolved on 10/26/2019 1 goal linked to scheduled/documented intervention 1 goal intervention scheduled/documented in this visit Shared: Advance 09/09/2019 Directives Disciplines: Alf, SHARED Resolved on 10/26/2019 1 goal linked to scheduled/documented intervention 1 goal intervention scheduled/documented in this visit Shared: Diabetes: 09/09/2019 Knowledge Deficit Related to Diabetic Foot Care Disciplines: Alf, Physical Therapy, Occupational Therapy, SHARED Resolved on [...] Disciplines: Alf, Physical Therapy, Occupational Therapy, SHARED Resolved on [...] Patient instructed on complications of diabetes mellitus: Nursing Home Complications of Diabetes ([place]ames). Patient response to [...] Goal: Directive yes Shared: Durable Power of Drug Enforcement Agent Advance (DPOA), Health Care Power directives of Drug Enforcement Agent (HCPOA) and obtained, Living Will or if [...]
--- OUTSIDE RECORDS SUMMARY | 2020-03-16 13:45 | XMS REPORT | Encounter Summary ---
Author Author [facility] Organization [facility] Address Unknown Phone Unavailable Care Team Providers Care Pre K Special Education Teacher Name Role Phone Ebony Sharp MD PCP Reason for Visit * Reason Comments Other Encounter Details Care Team Description Date Type Department Ebony Sharp MD [address] [facility] [address] [place], [place] [id number] Other 10/29/2019 Refill [facility] [address] [facility] [address] [place], [place] [id number] Social History Date Tobacco Use Types Packs/Day [...]
--- OUTSIDE RECORDS SUMMARY | 2020-03-16 13:45 | XMS REPORT | Encounter Summary ---
Author Author [facility] Organization [facility] Address Unknown Phone Unavailable Care Team Providers Care Spud Driller Name Role Phone Ebony Sharp MD PCP Reason for Visit * Reason Comments Other Encounter Details Care Team Description Date Type Department Ebony Sharp MD [address] [facility] [address] [place], [place] [phone] Other 10/27/2019 Refill [facility] Primar y Care - [place] [address] [facility] [address] [place], [place] [id number] Social History Date Tobacco Use Types Packs/Day [...]
--- OUTSIDE RECORDS SUMMARY | 2020-03-16 13:45 | XMS REPORT | Encounter Summary ---
Author Author [facility] Organization [facility] Address Unknown Phone Unavailable Care Team Providers Care Telecommunications Project Manager Name Role Phone Ebony Sharp MD PCP Reason for Visit * HH Auth Cert Referred By Contact Referred To Contact Status Reason Specialty Diagnoses / Procedures Encounter Details Care Team Description Date Type Department Vanessa Burch, PT PT HOME VISIT 10/19/2019 Home Care Visit [facility] Home Care and page [facility] [address] [facility] [address] [place] [address] Social History Date Tobacco Use [...] Comments Vital Sign 116/68 10/19/2019 12:03 PM POLYMERIZATION SUPERVISOR Blood Pressure 76 10/19/2019 12:03 PM POLYMERIZATION SUPERVISOR Pulse 36.6 C (97.8 F) 10/19/2019 12:03 PM POLYMERIZATION SUPERVISOR Temperature 16 10/19/2019 12:03 PM POLYMERIZATION SUPERVISOR Respiratory Rate 92% 10/19/2019 12:03 PM POLYMERIZATION SUPERVISOR Oxygen Saturation - - Inhaled Oxygen [...] Preference short of breath, go to s jainism, visit family, Goal: cook own meals and bathe Shared: and dress without Patient/Ca assistance. regiver will progress towards goals and achieve them documented in this encounter
--- OUTSIDE RECORDS SUMMARY | 2020-03-16 13:45 | XMS REPORT | Encounter Summary ---
Author Author [facility] Organization [facility] Address Unknown Phone Unavailable Care Team Providers Care Labeling Machine Operator Name Role Phone Ebony Sharp MD PCP Reason for Visit * HH Auth Cert Referred By Contact Referred To Contact Status Reason Specialty Diagnoses / Procedures Encounter Details Care Team Description Date Type Department Gaby Wolff, OT OT DISCIPLINE DISCHARGE 10/18/2019 Home Care Visit [facility] Home Care and page [facility] [address] [facility] [address] [place] [address] Social History Date Tobacco Use [...] Comments Vital Sign 130/74 10/18/2019 12:20 PM SECTION CHIEF Blood Pressure 73 10/18/2019 12:20 PM SECTION CHIEF Pulse 36.4 C (97.6 F) 10/18/2019 12:20 PM SECTION CHIEF Temperature 18 10/18/2019 12:20 PM SECTION CHIEF Respiratory Rate 92% 10/18/2019 12:20 PM SECTION CHIEF Oxygen Saturation - - Inhaled Oxygen Concentration [...] 09/09/2019 Skin Breakdown - Pressure Ulcer Disciplines: Fci, Physical Therapy, Occupational Therapy, SHARED Active 1 goal linked to scheduled/documented intervention 1 goal intervention scheduled/documented in this visit Shared: Risk of Falls 09/09/2019 Disciplines: Fci, Physical Therapy, Occupational Therapy, [...] Disease appropriate use of Management resources for assisted management of disease and decreased hospitalizations by [...] in oxygen safety guidelines, as located in [facility] home care admission booklet, to include: [...] appropriat e use of resources for long wall mining machine helper management of disease and decreased hospitaliz ations [...] Preference short of breath, go to s worship, visit family, Goal: cook own meals and [...]
--- OUTSIDE RECORDS SUMMARY | 2020-03-16 13:45 | XMS REPORT | Encounter Summary ---
Author Author [facility] Organization [facility] Address Unknown Phone Unavailable Care Team Providers Care Emergency Room Physician Assistant Name Role Phone Ebony Sharp MD PCP Reason for Visit * Reason Comments Other Encounter Details Care Team Description Date Type Department Ebony Sharp MD [address] [facility] [address] [place], [place] [phone] Other 11/24/2019 Refill [facility] Primar y Care - [place] [address] [facility] [address] [place], [place] [phone] Social History Date Tobacco Use Types Packs/Day [...]
--- OUTSIDE RECORDS SUMMARY | 2020-03-16 13:45 | XMS REPORT | Encounter Summary ---
Author Author [facility] Organization [facility] Address Unknown Phone Unavailable Care Team Providers Care Zoology Professor Name Role Phone Ebony Sharp MD PCP Reason for Visit * HH Auth Cert Referred By Contact Referred To Contact Status Reason Specialty Diagnoses / Procedures Encounter Details Care Team Description Date Type Department Vanessa Burch, PT PT DISCIPLINE DISCHARGE 10/25/2019 Home Care Visit [facility] Home Care and page [facility] [address] [facility] [address] [place] [address] Social History Date Tobacco Use [...] Comments Vital Sign 116/78 10/25/2019 1:40 PM WOODEN BOX MAKER Blood Pressure 76 10/25/2019 1:40 PM WOODEN BOX MAKER Pulse 36.7 C (98 F) 10/25/2019 1:40 PM WOODEN BOX MAKER Temperature 16 10/25/2019 1:40 PM WOODEN BOX MAKER Respiratory Rate 98% 10/25/2019 1:40 PM WOODEN BOX MAKER Oxygen Saturation - - Inhaled Oxygen [...] getting Preference short of breath, go to [facility], visit family, Goal: cook own meals and bathe Shared: and dress without Patient/Ca assistance. regiver will progress towards goals and achieve them documented in this encounter
--- OUTSIDE RECORDS SUMMARY | 2020-03-16 13:45 | XMS REPORT | Encounter Summary ---
Author Author [facility] Organization [facility] Address Unknown Phone Unavailable Care Team Providers Care Star Route Mail Driver Name Role Phone Ebony Sharp MD [...] unspecified (Primary Dx); Flank pain 10/18/2019 Emergency [facility] [address] [place], [place] [id number] Social History Date Tobacco Use Types Packs/Day [...] Comments Vital Sign 115/83 10/18/2019 2:08 PM SENIOR INTERNET SALES CONSULTANT Blood Pressure 70 10/18/2019 2:08 PM SENIOR INTERNET SALES CONSULTANT Pulse 36.8 C (98.3 F) 10/18/2019 2:08 PM SENIOR INTERNET SALES CONSULTANT Temperature 20 10/18/2019 2:08 PM SENIOR INTERNET SALES CONSULTANT Respiratory Rate 96% 10/18/2019 2:08 PM SENIOR INTERNET SALES CONSULTANT Oxygen Saturation - - Inhaled Oxygen Concentration 95.3 kg (210 lb) 10/18/2019 2:08 PM SENIOR INTERNET SALES CONSULTANT Weight 157.5 cm (5' 2") 10/18/2019 2:08 PM SENIOR INTERNET SALES CONSULTANT Height 38.41 10/18/2019 2:08 PM SENIOR INTERNET SALES CONSULTANT Body Mass Index documented in this encounter Discharge Instructions * Instructions* Floresita Gan NP - 10/18/2019 Take the antibiotic as prescribed. Take pain medications as needed. Recommend follow-up with your primary care provider next week for follow-up. Return to the ER for any other worrisome symptoms arise. * Attachments The following attachments cannot be sent through Care Everywhere.* Urinary Tract Infections (UTIs), Understanding (Macanese) documented in this encounter Medications at Time [...] A/vit Take by mouth 0 C/biotin/zinc/copper daily. ([id number],VIT A,C-BIOTIN, ORAL) 10/18/2019 10/20/2019 HYDROcodone-acetaminophen Take 1-2 [...] Floresita Gan NP - 10/18/2019 7:29 PM SENIOR INTERNET SALES CONSULTANT 10/18/2019 [facility] History [...] ankle. COPD (chronic obstructive pulmonary disease) ([facility]) Depression Draining postoperative wound 08/08/2016 Endometriosis Essential [...] Refusal of blood transfusions as patient is Voodoo Sleep apnea CPAP use Type 2 diabetes [...] STENT PLACEMENT; Surgeon: Darin Huber MD; Location: [facility]; Service: Urology; Laterality: Left; CYSTOSCOPY, RETROGRADE PYELOGRAM, URETEROSCOPY, LASERLITHOTRIPSY, WITH URETE RAL STENT PLACEMENT Left 08/02/2019 Procedure: CYSTOSCOPY, LEFT RETROGRADE PYELOGRAM, LEFT URETEROSCOPY, LASER LITH OTRIPSY, LEFT URETERAL STENT EXCHANGE; Surgeon: Darin Huber MD; Location: [facility]; Service: Urology; Laterality: Left; CYSTOSCOPY, RETROGRADE PYELOGRAM, URETEROSCOPY, LASERLITHOTRIPSY, WITH URETE RAL STENT PLACEMENT Left 09/21/2019 Procedure: CYSTOSCOPY, LEFT RETROGRADE PYELOGRAM, LEFT URETEROSCOPY, LEFT HOLMI UM LASER LITHOTRIPSY WITH BASKET EXTRACTION OF STONE, AND LEFT URETERAL STENT PL ACEMENT; Surgeon: Janet Aragon MD; Location: [facility]; Service: Ur ology; Laterality: Left; CYSTOSCOPY, RETROGRADE PYELOGRAM, W/URETERAL STENT PLACEMENT Left 08/30/2019 Procedure: CYSTOSCOPY, LEFT RETROGRADE PYELOGRAM, AND LEFT URETERAL STENT INSER TION; Surgeon: Janet Aragon MD; Location: [facility]; Service: Urolo gy; Laterality: Left; HAND SURGERY Left 03/09/2019 [facility] REPAIR HYSTERECTOMY KIDNEY STONE SURGERY OOPHORECTOMY REMOVAL, HARDWARE, FOOT OR ANKLE Left 04/09/2017 Procedure: LEFT ANKLE REMOVAL OF HARDWARE WITH REVISION LEFT ANKLE ARTHRODESIS; Surgeon: Adelaida Olivas MD; Location: [facility]; Service: Orthopedics; Later [...] Negative Ketones Urine Negative Negative mg/dL Specific [place], UA 1.021 1.001 - 1.030 Hemoglobin Urine [...] steatosis. 3. Coronary artery atherosclerosis. READING SITE: [facility] ATTESTATION STATEMENT: The Staff Radiologist has personally reviewed the images and dictated, reviewed, or edited the final report. Filed VS 10/18/19 1408 BP: 115/83 Pulse: 70 Resp: 20 Temp: 98.3 F (36.8 C) SpO2: 96% Medications fentaNYL (SUBLIMAZE) injection 50 mcg (50 mcg Intravenous Given 10/18/19 7140) ondansetron (ZOFRAN) injection 4 mg (4 mg [...] ED Disposition Discharge Floresita Gan NP 10/18/192008 OR INTERNET SALES CONSULTANT documented in this encounter Plan of Treatment Not on filedocumented as of this encounter Procedures Comments Procedure Name Priority Date/Time Associated Diag nosis CT ABDOMEN PELVIS WO STAT 10/18/2019 CONTRAST 6:44 PM SENIOR INTERNET SALES CONSULTANT URINALYSIS MICROSCOPIC STAT 10/18/2019 ONLY 6:15 PM SENIOR INTERNET SALES CONSULTANT URINALYSIS REFLEX STAT 10/18/2019 6:15 PM SENIOR INTERNET SALES CONSULTANT CULTURE, URINE STAT 10/18/2019 6:15 PM SENIOR INTERNET SALES CONSULTANT COMPREHENSIVE METABOLIC STAT 10/18/2019 PANEL 6:07 PM SENIOR INTERNET SALES CONSULTANT CBC AND DIFF (MANUAL DIFF STAT 10/18/2019 IF NECESSARY) 6:07 PM SENIOR INTERNET SALES CONSULTANT documented in this encounter Results * CT Abdomen Pelvis wo contrast (10/18/2019 6:44 PM SENIOR INTERNET SALES CONSULTANT) Specimen Impressions Performed At 1. No acute abdominal or pelvic process. No hydrone phrosis or renal ABIKESSON calculi. 2. Hepatomegaly with diffuse hepatic steatosis. 3. Coronary artery atherosclerosis. READING SITE: [facility] ATTESTATION STATEMENT: The Staff Radiol ogist has personally reviewed the images and dictated, reviewed, or edite d the final report. Narrative Performed At Patient: ISIAH BENÍTEZ Sex#: F #: [id number] Jose #: [id number] Location: [place] [address] Procedure Requested: [id number] CT ABDOM EN PELVIS WO CONTRAST Reason [...] Rad Results In - 10/18/2019 7:12 PM SENIOR INTERNET SALES CONSULTANT Patient: ISIAH BENÍTEZ Sex#: Paulina #: [id number] Jose#: [id number] Location: [place] [address] Procedure Requested: [id number] CT ABDOMEN PELVIS WO CONTRAST Reason for [...] eatosis. 3. Coronary artery atherosclerosis. READING SITE: [facility] ATTESTATION STATEMENT: The Staff Radiologist has personally reviewed the images and dictated, reviewed, or edited the final report. Performing Organization Address City/[facility] Ph one Number LEVI * Culture, Urine (10/18/2019 6:15 PM SENIOR INTERNET SALES CONSULTANT) Culture Result Three or more bacterial [place] species isolated from urine Hospital Lab indicates colonization or fecal contamination. Submission of a repeat specimen is suggested. Specimen Clean Voided Urine Performing Organization Address City/[facility] Ph one Number [facility] [address] [address] LABORATORIES [facility] [address] [place] [address] * Urinalysis Microscopic Only (10/18/2019 6:15 PM SENIOR INTERNET SALES CONSULTANT) Microscopic RBC 0-5 0 - 5 /hpf [facility] Urine [facility] Microscopic WBC >40 (A) 0 - 5 /hpf [facility] Urine [facility] Epithelial Large (A) Absent [facility] Cells [facility] Hyaline Cast Large (A) Absent [facility] Bacteria Small (A) Absent [facility] Specimen Clean Voided Urine Performing Organization Address City/State/[facility] Ph one Number [facility] [address] [place] [address] [facility] [address] [facility] [place] [address] [facility] * Urinalysis Reflex (10/18/2019 6:15 PM SENIOR INTERNET SALES CONSULTANT) Appearance, Yellow [facility] Urine [facility] Glucose Urine >=1000 (A) Negative mg/dL [facility] Bilirubin Urine Negative Negative [facility] Ketones Urine Negative Negative mg/dL [facility] Specific 1.021 1.001 - 1.030 [facility] [place], UA [facility] Hemoglobin Negative Negative [facility] Urine [facility] PH Urine 5.0 5.0 - 8.0 [facility] Protein Urine Trace (A) Negative mg/dL [facility] Qual [facility] Urobilinogen Negative Negative EU/dL [facility] Urine [facility] Nitrite Urine NegativeComment: Culture Negative [facility] Ordered [facility] Leukocyte Positive (A) Negative [facility] Esterase [facility] Specimen Clean Voided Urine Performing Organization Address City/State/Zipcode Ph one Number [facility] [address] [facility] [place], [place] [id number] [facility] [facility] [address] [facility] [place], [place] [address] [facility] * Comprehensive Metabolic Panel (10/18/2019 6:07 PM SENIOR INTERNET SALES CONSULTANT) Sodium 137 133 - 147 MEQ/L [facility] Potassium 3.5 3.5 - 5.3 MEQ/L [facility] Chloride 99 96 - 112 MEQ/L [facility] Carbon Dioxide 30 20 - 32 MEQ/L [facility] Anion Gap 8 5 - 17 [facility] Calcium 8.7 8.4 - 10.5 mg/dL [facility] Glucose 343 (H) 70 - 100 mg/dL [facility] Protein Total 7.7 6.0 - 8.2 g/dL [facility] Serum [facility] Albumin 4.1 3.5 - 5.0 g/dL [facility] Alkaline 86 42 - 140 IU/L [facility] Phosphatase [facility] Alanine 26 0 - 34 IU/L [facility] Aminotransferas [facility] Aspartate 35 15 - 46 IU/L [facility] Aminotransferas [facility] Bilirubin Total 0.2 0.2 - 1.3 mg/dL [facility] Blood Urea 9 7 - 26 mg/dL [facility] Nitrogen [facility] Creatinine 0.7 0.4 - 1.1 mg/dL [facility] eGFR Female AA 100 60 - 200 [facility] mL/min/1.73sq [facility] eGFR Female 83 60 - 200 [facility] Non-AA mL/min/1.73sq m Cedric Israeleugenia [facility] Specimen Blood Performing Organization Address City/State/Zipcode Ph one Number [facility] [address] [place] [address] [facility] [facility] [address] [place] [address] [facility] * CBC and Diff (manual diff if necessary) (10/18/2019 6:07 PM SENIOR INTERNET SALES CONSULTANT) [facility] WBC 8.72 4.00 - 11.00 TH/uL [facility]ra[facility] RBC 3.86 (L) 4.00 - 5.00 MIL/uL kate eugenia [facility] Hemoglobin 12.6 12.0 - 15.0 g/dL kateeugenia [facility] Hematocrit 39 36 - 45 % kateeugenia [facility] MCV 100 (H) 80 - 99 fL kateeugenia [facility] MCH 33 27 - 34 pg kateeugenia [facility] MCHC 33 32 - 36 % [facility] RDW 14.3 11.5 - 14.5 % [facility] Platelet Count 234 140 - 400 TH/uL [facility] MPV 9.9 9.4 - 12.3 fL kateeugenia [facility] Nucleated RBCs 0 0 - 0 /100 [facility] % Neutrophils 54 45 - 78 % [facility] %Lymphocytes 34 15 - 47 % [facility] %Monocytes 10 0 - 12 % [facility] %Eosinophils 2 0 - 7 % [facility] %Basophils 1 0 - 2 % [facility] % Imm Grans 1 0 - 1 % [facility] # Granulocytes 4.67 1.7 - 6.8 TH/uL [facility] # Lymphocytes 2.94 1.0 - 3.3 TH/uL [facility] # Monocytes 0.86 0.2 - 0.9 TH/uL [facility] # Eosinophils 0.16 0.0 - 0.4 TH/uL [facility] # Basophils 0.05 0.0 - 0.1 TH/uL [facility] Specimen Blood Performing Organization Address City/State/Zipcode Ph one Number [facility] [address] [facility] [place] [address] [facility] [facility] [address] [address] [facility] documented in this encounter Visit Diagnoses Diagnosis Urinary tract infection without hematur ia, site unspecified Flank pain Abdominal pain, unspecified site documented in this encounter Administered Medications Action Date Dose Rate Site Medication Order MAR Action 10/18/2019 7:47 PM SENIOR INTERNET SALES CONSULTANT 1 g cefTRIAXone (ROCEPHIN) injection 1 g Given 1 g, Intravenous, Once, Indications: UTI, Wed10/18/19 at 1928, For 1 dose, If giving IV push, reconstitute each vial with 10 ml sterile water and give over 3-5 minutes. If sterile water is unavailable, may use Bacteriostatic Water or Normal Saline for reconstitution, 10/18/2019 6:24 PM SENIOR INTERNET SALES CONSULTANT 50 mcg fentaNYL (SUBLIMAZE) injection 50 mcg Given 50 mcg, Intravenous, Once, Wed10/18/19 at 1813, For 1 dose, Administer over 2 minutes; max dose for IVP is 2 mcg/kg. Note: Limit does not apply to patients who may be tolerant to opioid therapy o r on continuous IV or PO opiate therapy., 10/18/2019 7:59 PM SENIOR INTERNET SALES CONSULTANT 1 tablet HYDROcodone-acetaminophen (NORCO) 5-325 Given mg per tablet 1 tablet 1 tablet, Oral, Once, Wed10/18/19 at 1953, For 1 dose, Do not exceed 4 GM/DA Y of acetaminophen. If 65 or older do no t exceed 3 GM/DAY. If chronic alcoholic d o not exceed 2 GM/DAY., 10/18/2019 6:24 PM SENIOR INTERNET SALES CONSULTANT 4 mg ondansetron (ZOFRAN) injection 4 mg Given 4 mg, Intravenous, Once, 10/18/19 at 1813, For 1 dose documented in this encounter
--- OUTSIDE RECORDS SUMMARY | 2020-03-16 13:45 | XMS REPORT | Encounter Summary ---
Author Author [facility] Organization [facility] Address Unknown Phone Unavailable Care Team Providers Care Chrome Tanning Drum Operator Name Role Phone Ebony Sharp MD PCP Encounter Details Care Team Description Date Type Department Medardo Tate MD [address] [place] [address] [phone] 12/29/2019 Documentation [facility] [address] [place], [place] [id number] Social History Date Tobacco Use Types Packs/Day [...]
--- OUTSIDE RECORDS SUMMARY | 2020-03-16 13:45 | XMS REPORT | Encounter Summary ---
Author Author [facility] Organization [facility] Address Unknown Phone Unavailable Care Team Providers Care Electrical Mechanic Name Role Phone Ebony Sharp MD PCP Reason for Visit * Reason Comments Other Encounter Details Care Team Description Date Type Department Ebony Sharp MD [address] [facility] [address] [place], [place] [id number] Other 12/22/2019 Refill [facility] [address] [facility] Center[facility] [address] [place], [place] [id number] Social History Date Tobacco Use Types Packs/Day [...]
--- OUTSIDE RECORDS SUMMARY | 2020-03-16 13:46 | XMS REPORT | Encounter Summary ---
Author Author [facility] Organization [facility] Address Unknown Phone Unavailable Care Team Providers Care Licensed Appraiser Name Role Phone Ebony Sharp MD PCP Reason for Visit * HH Auth Cert Referred By Contact Referred To Contact Status Reason Specialty Diagnoses / Procedures Encounter Details Care Team Description Date Type Department Gaby Wolff OT OT HOME VISIT 10/11/2019 Home Care Visit [facility] Home Care and page [facility] [address] [facility] [address] [place] [address] Social History Date Tobacco Use [...] Comments Vital Sign 110/60 10/11/2019 1:40 PM FILAMENT WOUND PARTS FABRICATOR Blood Pressure 69 10/11/2019 1:40 PM FILAMENT WOUND PARTS FABRICATOR Pulse 36.3 C (97.3 F) 10/11/2019 1:40 PM FILAMENT WOUND PARTS FABRICATOR Temperature 18 10/11/2019 1:40 PM FILAMENT WOUND PARTS FABRICATOR Respiratory Rate 97% 10/11/2019 1:44 PM FILAMENT WOUND PARTS FABRICATOR with PLB Oxygen Saturation - - Inhaled [...] 09/09/2019 Skin Breakdown - Pressure Ulcer Disciplines: Senior Care, Physical Therapy, Occupational Therapy, SHARED Active 1 goal linked to scheduled/documented intervention 1 goal intervention scheduled/documented in this visit Shared: Risk of Falls 09/09/2019 Disciplines: Senior Care, Physical Therapy, Occupational [...] Disease appropriate use of Management resources for intermediate management of disease and decreased hospitalizations by [...] in oxygen safety guidelines, as located in [facility] home care admission booklet, to include: [...] and appropriat e use of resources for laborer marine terminal management of disease and decreased hospitaliz [...] Preference short of breath, go to s judaism, visit family, Goal: cook own meals and [...]
--- OUTSIDE RECORDS SUMMARY | 2020-03-16 13:46 | XMS REPORT | Encounter Summary ---
Author Author [facility] Organization [facility] Address Unknown Phone Unavailable Care Team Providers Care Editorial Cartoonist Name Role Phone Ebony Sharp MD PCP Reason for Visit * HH Auth Cert Referred By Contact Referred To Contact Status Reason Specialty Diagnoses / Procedures Encounter Details Care Team Description Date Type Department Shannon Rangel LPN SN HOME VISIT 10/12/2019 Home Care Visit [facility] Home Care and page [facility] [address] [facility] [address] [place] [phone] Social History Date Tobacco Use Types Packs/Day [...] Comments Vital Sign 104/68 10/12/2019 3:24 PM PYTHON WEB DEVELOPER Blood Pressure 74 10/12/2019 3:24 PM PYTHON WEB DEVELOPER Pulse 36.6 C (97.8 F) 10/12/2019 3:24 PM PYTHON WEB DEVELOPER Temperature 16 10/12/2019 3:24 PM PYTHON WEB DEVELOPER Respiratory Rate 95% 10/12/2019 3:24 PM PYTHON WEB DEVELOPER Oxygen Saturation - - Inhaled Oxygen Concentration - - Weight - - Height - - Body Mass Index documented in this encounter Plan of Treatment Not on filedocumented as of this encounter Visit Diagnoses Not on filedocumented in this encounter Home Health Visit - Care Plan Visit Type - SN Home Visit Discipline - Group Home Status Goals Interventions [...] Patient instructed on complications of diabetes mellitus: Intelligence Manager Complications of Diabetes (Romulo). Patient response to [...] Goal: Directive yes Shared: Durable Power of Cashier Or Checker Stock Clerk Advance (DPOA), Health Care Power directives of Cashier Or Checker Stock Clerk (HCPOA) and obtained, Living Will or if [...] Preference short of breath, go to s evangelical, visit family, Goal: cook own meals and bathe Shared: and dress without Patient/Ca assistance. regiver will progress towards goals and achieve them documented in this encounter
--- OUTSIDE RECORDS SUMMARY | 2020-03-16 13:46 | XMS REPORT | Encounter Summary ---
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 Care Paint Roller Covers Supervisor Name Role Phone Ebony Sharp MD PCP Reason for Visit * Reason Comments Other Encounter Details Care Team Description Date Type Department Art Watts II, DO [address] [place] [address] [phone] Other 10/13/2019 Refill [facility] [address] [place] [address] Social History Date Tobacco Use Types Packs/Day [...]
--- OUTSIDE RECORDS SUMMARY | 2020-03-16 13:46 | XMS REPORT | Encounter Summary ---
Author Author [facility] Organization [facility] Address Unknown Phone Unavailable Care Team Providers Care Outside Machinist Name Role Phone Ebony Sharp MD PCP Reason for Visit * HH Auth Cert Referred By Contact Referred To Contact Status Reason Specialty Diagnoses / Procedures Encounter Details Care Team Description Date Type Department Gaby Wolff, OT OT INITIAL EVALUATION 10/04/2019 Home Care Visit [facility] Home Care and page [facility] [address] [facility] [address] [place] [address] Social History Date Tobacco Use [...] Comments Vital Sign 118/70 10/04/2019 12:30 PM REMOTE RECRUITER Blood Pressure 72 10/04/2019 12:30 PM REMOTE RECRUITER Pulse 35.9 C (96.7 F) 10/04/2019 12:30 PM REMOTE RECRUITER Temperature 18 10/04/2019 12:30 PM REMOTE RECRUITER Respiratory Rate 92% 10/04/2019 12:30 PM REMOTE RECRUITER with PLB Oxygen Saturation - - Inhaled [...] 09/09/2019 Communication and Provision of Supplies Disciplines: Senior Living, Physical Therapy, Occupational Therapy, SHARED Active 1 goal linked to scheduled/documented intervention 1 goal intervention scheduled/documented in this visit Shared: Prevention of 09/09/2019 Skin Breakdown - Pressure Ulcer Disciplines: Senior Living, Physical Therapy, Occupational Therapy, SHARED Active 1 goal linked to scheduled/documented intervention 1 goal intervention scheduled/documented in this visit Shared: Risk of Falls 09/09/2019 Disciplines: Senior Living, Physical Therapy, Occupational [...] getting Preference short of breath, go to alevism, visit family, Goal: cook own meals and [...]
--- OUTSIDE RECORDS SUMMARY | 2020-03-16 13:46 | XMS REPORT | Encounter Summary ---
Author Author [facility] Organization [facility] Address Unknown Phone Unavailable Care Team Providers Care Machine Quilt Stuffer Name Role Phone Ebony Sharp MD PCP Reason for Visit * HH Auth Cert Referred By Contact Referred To Contact Status Reason Specialty Diagnoses / Procedures Encounter Details Care Team Description Date Type Department Gaby Wolff OT OT HOME VISIT 10/09/2019 Home Care Visit [facility] Home Care and page [facility] [address] [facility] [address] [place] [address] Social History Date Tobacco Use [...] Comments Vital Sign 122/80 10/09/2019 1:40 PM PATENT DRAFTER Blood Pressure 83 10/09/2019 1:40 PM PATENT DRAFTER Pulse 37.2 C (99 F) 10/09/2019 1:40 PM PATENT DRAFTER Temperature 20 10/09/2019 1:33 PM PATENT DRAFTER Respiratory Rate 93% 10/09/2019 1:40 PM PATENT DRAFTER Oxygen Saturation - - Inhaled Oxygen Concentration [...] 09/09/2019 Skin Breakdown - Pressure Ulcer Disciplines: Care Home, Physical Therapy, Occupational Therapy, SHARED Active 1 goal linked to scheduled/documented intervention 1 goal intervention scheduled/documented in this visit Shared: Risk of Falls 09/09/2019 Disciplines: Care Home, Physical Therapy, Occupational [...] Disease appropriate use of Management resources for technical maintenance specialist management of disease and decreased hospitalizations by [...] and appropriat e use of resources for technical maintenance specialist management of disease and decreased hospitaliz ations [...] short of breath, go to [facility], visit family, Goal: cook own meals and [...]
--- OUTSIDE RECORDS SUMMARY | 2020-03-16 13:46 | XMS REPORT | Encounter Summary ---
Author Author [facility] Organization [facility] Address Unknown Phone Unavailable Care Team Providers Care Securities Sales Associate Name Role Phone Ebony Sharp MD PCP Reason for Visit * HH Auth Cert Referred By Contact Referred To Contact Status Reason Specialty Diagnoses / Procedures Encounter Details Care Team Description Date Type Department Vanessa Burch, PT PT INITIAL EVALUATION 10/05/2019 Home Care Visit [facility] Home Care and [facility] [address] [facility] [address] [place] [address] Social History Date Tobacco Use [...] Comments Vital Sign 112/66 10/05/2019 1:10 PM PAYMENT POSTER Blood Pressure 68 10/05/2019 1:10 PM PAYMENT POSTER Pulse 36.3 C (97.4 F) 10/05/2019 1:10 PM PAYMENT POSTER Temperature 18 10/05/2019 1:10 PM PAYMENT POSTER Respiratory Rate 94% 10/05/2019 1:10 PM PAYMENT POSTER Oxygen Saturation - - Inhaled Oxygen Concentration [...] Preference short of breath, go to [facility], visit family, Goal: cook own meals and [...]
--- OUTSIDE RECORDS SUMMARY | 2020-03-16 13:46 | XMS REPORT | Encounter Summary ---
Author Author [facility] Organization [facility] Address Unknown Phone Unavailable Care Team Providers Care Pot Tender Name Role Phone Ebony Sharp MD PCP Reason for Visit * HH Auth Cert Referred By Contact Referred To Contact Status Reason Specialty Diagnoses / Procedures Encounter Details Care Team Description Date Type Department Gaby Wolff OT OT HOME VISIT 10/16/2019 Home Care Visit [facility] Home Care and page [facility] [address] [facility] [address] [place] [address] Social History Date Tobacco Use [...] Comments Vital Sign 110/90 10/16/2019 2:04 PM WATCHMAKING TEACHER Blood Pressure 76 10/16/2019 2:04 PM WATCHMAKING TEACHER Pulse 36.1 C (97 F) 10/16/2019 2:04 PM WATCHMAKING TEACHER Temperature 18 10/16/2019 2:04 PM WATCHMAKING TEACHER Respiratory Rate 95% 10/16/2019 2:04 PM WATCHMAKING TEACHER Oxygen Saturation - - Inhaled Oxygen Concentration [...] 09/09/2019 Skin Breakdown - Pressure Ulcer Disciplines: Group Home, Physical Therapy, Occupational Therapy, SHARED Active 1 goal linked to scheduled/documented intervention 1 goal intervention scheduled/documented in this visit Shared: Risk of Falls 09/09/2019 Disciplines: Group Home, Physical Therapy, Occupational Therapy, SHARED Goal Met? 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 of Management resources for shelter management of disease and decreased hospitalizations by [...] and appropriat e use of resources for termite control service representative management of disease and decreased hospitaliz ations [...] getting Preference short of breath, go to [facility], visit family, Goal: cook [...]
--- OUTSIDE RECORDS SUMMARY | 2020-03-16 13:46 | XMS REPORT | Encounter Summary ---
Author Author [facility] Organization [facility] Address Unknown Phone Unavailable Care Team Providers Care Human Resources Project Manager Name Role Phone Ebony Sharp MD PCP Reason for Visit * HH Auth Cert Referred By Contact Referred To Contact Status Reason Specialty Diagnoses / Procedures Encounter Details Care Team Description Date Type Department Shannon Rangel LPN SN MISSED VISIT DOCUMENTATION 10/05/2019 Home Care Visit [facility] Home Care and page [facility] [address] [facility] [address] [place] [phone] Social History Date Tobacco Use Types Packs/Day [...] SN Missed Visit Documenta tion Discipline - Long-Term Status Goals Interventions Problem [...] Goal: Directive yes Shared: Durable Power of Executive Assistant To General Counsel Advance (DPOA), Health Care Power directives of Executive Assistant To General Counsel (HCPOA) and obtained, Living Will or if [...] Preference short of breath, go to s [facility], visit family, Goal: cook own meals and bathe Shared: and dress without Patient/Ca assistance. regiver will progress towards goals and achieve them documented in this encounter
--- OUTSIDE RECORDS SUMMARY | 2020-03-16 13:46 | XMS REPORT | Encounter Summary ---
Author Author [facility] Organization [facility] Address Unknown Phone Unavailable Care Team Providers Care Clinic Office Manager Name Role Phone Ebony Sharp MD PCP Reason for Visit * HH Auth Cert Referred By Contact Referred To Contact Status Reason Specialty Diagnoses / Procedures Encounter Details Care Team Description Date Type Department Vanessa Burch, PT PT HOME VISIT 10/10/2019 Home Care Visit [facility] Home Care and page [facility] [address] [facility] [address] [place] [address] Social History Date Tobacco Use [...] Comments Vital Sign 124/68 10/10/2019 1:30 PM FRONT OFFICE JAVA DEVELOPER Blood Pressure 74 10/10/2019 1:30 PM FRONT OFFICE JAVA DEVELOPER Pulse 36.4 C (97.5 F) 10/10/2019 1:30 PM FRONT OFFICE JAVA DEVELOPER Temperature 18 10/10/2019 1:30 PM FRONT OFFICE JAVA DEVELOPER Respiratory Rate 97% 10/10/2019 1:30 PM FRONT OFFICE JAVA DEVELOPER Oxygen Saturation - - Inhaled Oxygen [...] getting Preference short of breath, go to [facility], visit family, Goal: cook own meals and bathe Shared: and dress without Patient/Ca assistance. regiver will progress towards goals and achieve them documented in this encounter
--- OUTSIDE RECORDS SUMMARY | 2020-03-16 13:46 | XMS REPORT | Encounter Summary ---
Author Author [facility] Organization [facility] Address Unknown Phone Unavailable Care Team Providers Care Tree Deadener Name Role Phone Ebony Sharp MD PCP Encounter Details Care Team Description Date Type Department Letty Ragland RN 10/11/2019 Telephone [facility] Primar y Care - East [address] [facility] [address] [place], [place] [id number] Social History Date Tobacco Use Types Packs/Day [...] Ebony Sharp MD - 10/15/2019 8:06 PM PODIATRY DOCTOR Please check in with the patient to make sure that she is wearing her O2 and patrick t she is feeling comfortable. She actually looked pretty stable when I saw her before I left for my meeting. ATRY DOCTOR * Telephone Encounter - Letty Ragland RN - 10/11/2019 3:01 PM PODIATRY DOCTOR Received phone call from Gaby Occupational Therapist with [facility] [phone]. OT wanted to report that patient does [...] and to do nebulizer treatments as prescribed. ATRY DOCTOR documented in this encounter Plan of Treatment Not on filedocumented as of this encounter Visit Diagnoses Not on filedocumented in this encounter
--- OUTSIDE RECORDS SUMMARY | 2020-03-16 13:46 | XMS REPORT | Encounter Summary ---
Author Author [facility] Organization [facility] Address Unknown Phone Unavailable Care Team Providers Care Supervisor Nut Processing Name Role Phone Ebony Sharp MD PCP Reason for Visit * Reason Comments Other Encounter Details Care Team Description Date Type Department Ebony Sharp MD [address] [facility] [address] [place], [place] [id number] Other 10/13/2019 Refill [facility] Primar y Care - East [address] [facility] [address] [place], [place] [phone] Social History Date Tobacco Use Types Packs/Day [...]
--- OUTSIDE RECORDS SUMMARY | 2020-03-16 13:46 | XMS REPORT | Encounter Summary ---
Author Author [facility] Organization [facility] Address Unknown Phone Unavailable Care Team Providers Care Byproducts Maker Name Role Phone Ebony Sharp MD PCP Reason for Visit * HH Auth Cert Referred By Contact Referred To Contact Status Reason Specialty Diagnoses / Procedures Encounter Details Care Team Description Date Type Department Vanessa Burch, PT PT HOME VISIT 10/12/2019 Home Care Visit [facility] Home Care and page [facility] [address] [facility] [address] [place] [address] Social History Date Tobacco Use [...] Comments Vital Sign 124/70 10/12/2019 1:30 PM PULP DRIER Blood Pressure 78 10/12/2019 1:30 PM PULP DRIER Pulse 36.7 C (98 F) 10/12/2019 1:30 PM PULP DRIER Temperature 18 10/12/2019 1:30 PM PULP DRIER Respiratory Rate 96% 10/12/2019 1:30 PM PULP DRIER Oxygen Saturation - - Inhaled Oxygen Concentration [...] Preference short of breath, go to [facility], visit family, Goal: cook own meals and bathe Shared: and dress without Patient/Ca assistance. regiver will progress towards goals and achieve them documented in this encounter
--- OUTSIDE RECORDS SUMMARY | 2020-03-16 13:47 | XMS REPORT | Encounter Summary ---
Author Author [facility] Organization [facility] Address Unknown Phone Unavailable Care Team Providers Care Engineering Programmer Name Role Phone Ebony Sharp MD PCP Reason for Visit * Diagnostic Imaging (Routine) Referred By Contact Referred To Contact Status Reason Specialty Diagnoses / [place] [address] [place] [address] [facility] [address] [place] [address] Authorized Radiology Diagnoses Nephrolithiasis P rocedures US Renal complete Encounter Details Care Team Description Date [place] [address], [place] [address] [phone] Canceled (Rescheduled) [facility] [address] [place] [address] Social History Date Tobacco Use Types Packs/Day [...] A/vit Take by mouth 0 C/biotin/zinc/copper daily. ([id number],VIT A,C-BIOTIN, ORAL) 06/26/2019 12/24/2019 amitriptyline (ELAVIL) 25 Take 1 tablet 90 tablet 1 MG tablet (25 mg total) by mouth nightly. 08/25/2019 10/13/2019 BREO ELLIPTA 200-25 INHALE 1 PUFF 60 each 0 mcg/dose BY MOUTH INHALERIndications: DAILY Chronic obstructive pulmonary disease, unspecified COPD type ([facility]) 07/14/2019 01/01/2020 citalopram (CELEXA) 20 mg Take [...]
--- OUTSIDE RECORDS SUMMARY | 2020-03-16 13:47 | XMS REPORT | Encounter Summary ---
Author Author [facility] Organization [facility] Address Unknown Phone Unavailable Care Team Providers Care Design Agent Name Role Phone Ebony Sharp MD PCP Reason for Visit * HH Auth Cert Referred By Contact Referred To Contact Status Reason Specialty Diagnoses / Procedures Encounter Details Care Team Description Date Type Department Sherley Dixon CASE CONFERENCE 10/03/2019 Home Care Visit [facility] Home Care and page [facility] [address] [facility] [address] [place] [phone] Social History Date Tobacco Use Types Packs/Day [...] this visit Shared: Advance 09/09/2019 Directives Disciplines: Chcf, SHARED Active 1 goal linked to scheduled/documented [...] Goal: Directive yes Shared: Durable Power of Salesperson Flowers Advance (DPOA), Health Care Power directives of Salesperson Flowers (HCPOA) and obtained, Living Will or if [...]
--- OUTSIDE RECORDS SUMMARY | 2020-03-16 13:47 | XMS REPORT | Encounter Summary ---
Author Author [facility] Organization [facility] Address Unknown Phone Unavailable Care Team Providers Care Truer Pinion And Wheel Name Role Phone Ebony Sharp MD PCP Reason for Visit * HH Auth Cert Referred By Contact Referred To Contact Status Reason Specialty Diagnoses / Procedures Encounter Details Care Team Description Date Type Department Aury Louis RN SN MISSED VISIT DOCUMENTATION 10/02/2019 Home Care Visit [facility] Home Care and [facility] [address] [facility] [address] [place] [phone] Social History Date Tobacco Use Types Packs/Day [...] Aury Louis RN - 10/02/2019 4:[address] Sharp This patient missed a visit with home health on 10/02/19 due to Patient has appoi ntment tomorrow which is needed for HH orders to be signed, which put home healt h out of compliance with stated frequency. IAMENTARY COUNSEL documented in this encounter Plan of Treatment [...] Directive yes Shared: Durable Power of Director Of Research And Development Advance (DPOA), Health Care Power directives of Director Of Research And Development (HCPOA) and obtained, Living Will or if [...]
--- OUTSIDE RECORDS SUMMARY | 2020-03-16 13:47 | XMS REPORT | Encounter Summary ---
Author Author [facility] Organization [facility] Address Unknown Phone Unavailable Care Team Providers Care Cloth Booker Name Role Phone Ebony Sharp MD PCP Reason for Referral * Diagnostic Imaging (Routine) Referred By Contact Referred To Contact Status Reason Specialty Diagnoses / [place] [address] [place] [address] [facility] [address] [place] [phone] Authorized Radiology Diagnoses Ureteral calculus, left P rocedures US Renal complete * Testing (Routine) Referred By Contact Referred To Contact Status Reason Specialty Diagnoses / [place] [address] [address] [facility] [address] [place] [phone] Closed Urology Diagnoses Ureteral calculus, left P rocedures Cystoscopy with Stent Pull Reason for Visit * Reason Comments Nephrolithiasis cysto/stent * Testing (Routine) Referred By Contact Referred To Contact Status Reason Specialty Diagnoses / [place] [address] [place] [address] [facility] [address] [place] [address] Closed Urology Diagnoses Ureteral calculus, left P rocedures Cystoscopy with Stent Pull Encounter Details Care Team Description Date [place] [address] [place] [address] [phone] Ureteral calculus, left (Primary Dx); Renal calculus 09/29/2019 Procedure visit [facility] [address] [place] [address] Social History Date Tobacco Use Types Packs/Day [...] Comments Vital Sign 125/82 09/29/2019 12:30 PM INTERIOR DESIGN PROFESSOR Blood Pressure 92 09/29/2019 12:30 PM INTERIOR DESIGN PROFESSOR Pulse - - Temperature - - Respiratory Rate - - Oxygen Saturation - - Inhaled Oxygen Concentration 92.5 kg (204 lb) 09/29/2019 12:30 PM INTERIOR DESIGN PROFESSOR Weight 157.5 cm (5' 2") 09/29/2019 12:30 PM INTERIOR DESIGN PROFESSOR Height 37.31 09/29/2019 12:30 PM INTERIOR DESIGN PROFESSOR Body Mass Index documented in this encounter Progress Notes * Darin Huber MD - 09/29/2019 1:00 PM INTERIOR DESIGN PROFESSOR Urology follow up note Darin Huber [...] of stone and left ureteral stent placement (6-Lithuanian x 26 cm). Course of symptoms: decreasing. [...] mg by mouth daily. vit A/vit C/biotin/zinc/copper ([id number],VIT A,C-BIOTIN, ORAL) Take by mouth daily. cephalexin [...] stent was removed she pre sented to [facility] with increasing flank pain was found to [...] signed by: Darin Huber 09/29/2019 12:47 PM RIOR DESIGN PROFESSOR documented in this encounter Plan of [...] Routine 09/29/2019 Ureteral calculus, left 1:01 PM INTERIOR DESIGN PROFESSOR documented in this encounter Results * POCT UA w Micro Only (Small Stick) (09/29/2019 1:01 PM INTERIOR DESIGN PROFESSOR) Appearance, Comment: Stent Urine Glucose Urine 250 (A) Negative mg/dL Bilirubin Urine Negative Negative Ketones Urine Negative Negative Specific 1.020 1.001 - 1.030 [place], UA Hemoglobin Large (A) Negative Urine PH [...]
--- OUTSIDE RECORDS SUMMARY | 2020-03-16 13:47 | XMS REPORT | Encounter Summary ---
Author Author [facility] Organization [facility] Address Unknown Phone Unavailable Care Team Providers Care Svp Chief Marketing Officer Name Role Phone Ebony Sharp MD PCP Reason for Visit * Reason Comments Flank Pain DOCTOR REMOVED THE STENT FR GUAMAN AND TOLD HER IF SHE HAD MORE INTLERABLE PAIN TO RETURN TO ER. Encounter Details Care Team Description Date Type Department Celso Palma, DO [address] [place] [address] [phone] Flank pain (Primary Dx) 10/01/2019 Emergency [facility] [address] [place] [address] Social History Date Tobacco Use Types Packs/Day [...] Comments Vital Sign 111/59 10/01/2019 5:31 PM FILLER SPREADER Blood Pressure 67 10/01/2019 12:17 PM FILLER SPREADER Pulse 36.6 C (97.8 F) 10/01/2019 12:17 PM FILLER SPREADER Temperature 16 10/01/2019 12:17 PM FILLER SPREADER Respiratory Rate 95% 10/01/2019 5:31 PM FILLER SPREADER Oxygen Saturation - - Inhaled Oxygen Concentration - - Weight - - Height - - Body Mass Index documented in this encounter Discharge Instructions * Attachments The following attachments cannot be sent through Care Everywhere.* FLANK PAIN, UNCERTAIN CAUSE (WELSH) documented in this encounter Medications at [...] A/vit Take by mouth 0 C/biotin/zinc/copper daily. (YABR-NGPL-LNOE,VIT A,C-BIOTIN, ORAL) 06/26/2019 12/24/2019 amitriptyline (ELAVIL) 25 [...] Arjun Jurado RN - 10/01/2019 6:07 PM FILLER SPREADER Per provider ok for DC ER SPREADER * Celso Palma, DO - 10/01/2019 2:16 PM FILLER SPREADER 10/01/2019 [facility] History Chief Complaint Patient presents with Flank [...] bleeding 08/08/2016 Allergic rhinitis Anxiety Bronchitis, chronic ([facility]) Cataract 2011, 2012 bilat cateract surgery Chronic pain disorder back, ribs, and ankle. COPD (chronic obstructive pulmonary disease) ([facility]) Depression Draining postoperative wound 08/08/2016 Endometriosis Essential hypertension Fractures [address] in Left ankle MATA (generalized anxiety disorder) 09/24/2015 Hernia of abdominal cavity Kidney stone Mixed hyperlipidemia 09/24/2015 Morbid obesity due to excess calories ([facility]) 07/10/2016 On home oxygen therapy 2L - usually needs if has an exerbation of COPD, or resp illness SASHA on CPAP Osteoarthritis Refusal of blood transfusions as patient is [facility] Sleep apnea CPAP use Type 2 diabetes mellitus with hyperglycemia, with long-term current use of i nsulin ([facility]) 06/29/2016 Urinary calculi Urinary incontinence [...] STENT PLACEMENT; Surgeon: Darin Hendricks MD; Location: [facility] Main OR; Service: Urology; [...] INSER TION; Surgeon: Janet Aragon MD; Location: [facility] Main OR; Service: Urolo gy; Laterality: Left; HAND SURGERY Left 03/09/2019 [facility] HERNIA REPAIR HYSTERECTOMY KIDNEY STONE SURGERY OOPHORECTOMY REMOVAL, HARDWARE, FOOT OR ANKLE Left 04/09/2017 Procedure: LEFT ANKLE REMOVAL OF HARDWARE WITH REVISION LEFT ANKLE ARTHRODESIS; Surgeon: Adelaida Olivas MD; Location: [facility] Main OR; Service: Orthopedics; Later ality: Left; REMOVAL, STENT, URETER, CYSTOSCOPIC Left 09/21/2019 Procedure: CYSTOSCOPY, LEFT URETERAL STENT REMOVAL; Surgeon: Janet valdes MD; Location: [facility] Main OR; Service: Urology; Laterality: Left; REPAIR, INCISIONAL HERNIA, LAPAROSCOPIC, USING MESH N/A 05/25/2018 Procedure: LAPAROSCOPIC INCISIONAL HERNIA REPAIR WITH MESH; Surgeon: Medardo Tate MD; Location: [facility] Main OR; Service: [...] Negative Ketones Urine Negative Negative mg/dL Specific [place], UA 1.017 1.001 - 1.030 Hemoglobin Urine [...] or edited the final report. READING SITE: [facility] DIAGNOSIS Problem List Items Addressed This Visit None Visit Diagnoses Flank pain - Primary FOLLOW UP Ebony Sharp MD [address] [place] [address] Call in 2 days [place] [address] [facility] [place] [address] Call in 2 days Follow up without [...] ED Disposition Discharge Celso Palma DO 10/01/19 1984 ER SPREADER documented in this encounter Plan of Treatment Not on filedocumented as of this encounter Procedures Comments Procedure Name Priority Date/Time Associated Diag nosis LACTATE VENOUS WB Timed 10/01/2019 3:[address] ABDOMEN PELVIS WO STAT 10/01/2019 CONTRAST 1:56 PM FILLER SPREADER LIPASE STAT 10/01/2019 1:36 PM FILLER SPREADER LACTATE VENOUS WB STAT 10/01/2019 1:36 PM FILLER SPREADER COMPREHENSIVE METABOLIC STAT 10/01/2019 PANEL 1:36 PM FILLER SPREADER CBC AND DIFF (MANUAL DIFF STAT 10/01/2019 IF NECESSARY) 1:36 PM FILLER SPREADER URINALYSIS MICROSCOPIC STAT 10/01/2019 ONLY 12:24 PM FILLER SPREADER URINALYSIS REFLEX STAT 10/01/2019 12:24 PM FILLER SPREADER CULTURE, URINE STAT 10/01/2019 12:24 PM FILLER SPREADER documented in this encounter Results * Lactate Venous WB (10/01/2019 3:48 PM FILLER SPREADER) Only the most recent of 2 results within the time period is included. Lactate Venous 2.3 (H) 0.0 - 2.0 mmol/L [facility] [place] [facility] Specimen Blood Narrative Performed At Reflex sepsis screen >2.0 [facility] Performing Organization Address City/State/Zipcode Ph one Number [facility] [address] [place] [address] [facility] [address] [place] [address] [place] [facility] [address] [place] [address], [place] [phone] [facility] * CT Abdomen Pelvis wo contrast (10/01/2019 1:56 PM FILLER SPREADER) Specimen Impressions Performed At 1. Interval removal of the left nephroureteral stent. Mild residual YAIMASON proximal hydroureteronephrosis, with mi ld inflammatory stranding involving the left proximal ureter. No radiopaque stones. 2. Redemonstrated urethral diverticulum , with multiple small stones. ATTESTATION STATEMENT: The Staff Radiologist has personally re viewed the images and dictated, reviewed, or edited the final report. READING SITE: [facility] Narrative Performed At Patient: ISIAH BENÍTEZ Sex#: F #: [id number] Jose #: [id number] Location: [facility] SED-28 Procedure Requested: [id number] CT ABDOM EN PELVIS WO CONTRAST Reason [...] Rad Results In - 10/01/2019 2:52 PM FILLER SPREADER Patient: ISIAH BENÍTEZ Sex#: F #: 1950 Jose#: [id number] Location: [facility] SED-28 Procedure Requested: [id number] CT ABDOMEN PELVIS WO CONTRAST Reason for [...] or edited the final report. READING SITE: [facility] Organization Address City/State/Zipcode Ph one Number [place] * Lipase (10/01/2019 1:36 PM FILLER SPREADER) Lipase 105 23 - 300 IU/L [facility] [place] [facility] Specimen Blood Performing Organization Address City/State/Zipcode Ph one Number [facility] [address] [facility] [place], [place] [id number] [facility] [address] [facility] [place] [address] [place] [facility] * Comprehensive Metabolic Panel (10/01/2019 1:36 PM FILLER SPREADER) Sodium 135 133 - 147 MEQ/L [facility] [place] [facility] Potassium 3.3 (L) 3.5 - 5.3 MEQ/L [facility] [place] [facility] Chloride 98 96 - 112 MEQ/L [facility] [place] [facility] Carbon Dioxide 31 20 - 32 MEQ/L [facility] [place] [facility] Anion Gap 7 5 - 17 [facility] [place] [facility] Calcium 9.2 8.4 - 10.5 mg/dL [facility] [place] [facility] Glucose 203 (H) 70 - 100 mg/dL [facility] [place] [facility] Protein Total 7.6 6.0 - 8.2 g/dL [facility] Serum [facility] [place] [facility] Albumin 4.0 3.5 - 5.0 g/dL [facility] [place] [facility] Alkaline 101 42 - 140 IU/L [facility] Phosphatase [facility] [place] [facility] Alanine 40 (H) 0 - 34 IU/L [facility] Aminotransferas [facility] [place] [facility] Aspartate 41 15 - 46 IU/L [facility] Aminotransferas [facility] [place] [facility] Bilirubin Total 0.5 0.2 - 1.3 mg/dL [facility] [place] [facility] Blood Urea 16 7 - 26 mg/dL [facility] Nitrogen [facility] [place] [facility] Creatinine 0.8 0.4 - 1.1 mg/dL [facility] [place] [facility] eGFR Female AA 86 60 - 200 [facility] mL/min/1.73sq [facility] [place] [facility] eGFR Female 72 60 - 200 [facility] Non-AA mL/min/1.73sq [facility] [place] [facility] Specimen Blood Performing Organization Address City/State/Zipcode Ph one Number [facility] [address] [place] [address] [facility] [address] [facility] [place] [address] [place] [facility] * CBC and Diff (manual diff if necessary) (10/01/2019 1:36 PM FILLER SPREADER) WBC 8.76 4.00 - 11.00 TH/uL [facility] e[facility] [place] [facility] RBC 4.10 4.00 - 5.00 MIL/uL [facility] Cedric Israels [place] [facility] Hemoglobin 13.1 12.0 - 15.0 g/dL [facility] [place] [facility] Hematocrit 40 36 - 45 % [facility] C[facility]ric [facility] [place] [facility] MCV 97 80 - 99 fL [facility] [place] [facility] MCH 32 27 - 34 pg [facility] C[facility]ric [facility] [place] [facility] MCHC 33 32 - 36 % [facility] [place] [facility] RDW 13.6 11.5 - 14.5 % [facility] [place] [facility] Platelet Count 177 140 - 400 TH/uL [facility] [place] [facility] MPV 10.0 9.4 - 12.3 fL [facility] C[facility] [place] [facility] Nucleated RBCs 0 0 - 0 /100 [facility] Cerdic [facility] [place] [facility] % Neutrophils 57 45 - 78 % [facility] [place] [facility] %Lymphocytes 33 15 - 47 % [facility] [place] [facility] %Monocytes 8 0 - 12 % [facility] [place] [facility] %Eosinophils 2 0 - 7 % [facility] [place] [facility] %Basophils 1 0 - 2 % [facility] [place] [facility] % Imm Grans 0 0 - 1 % [facility] [place] [facility] # Granulocytes 4.95 1.7 - 6.8 TH/uL [facility] [place] [facility] # Lymphocytes 2.90 1.0 - 3.3 TH/uL [facility] [place] [facility] # Monocytes 0.69 0.2 - 0.9 TH/uL [facility] [place] [facility] # Eosinophils 0.14 0.0 - 0.4 TH/uL [facility] [place] [facility] # Basophils 0.05 0.0 - 0.1 TH/uL [facility] [place] [facility] Specimen Blood Performing Organization Address City/[facility] Ph one Number [facility] [address] [facility] [facility] [place] [address] [facility] [address] [facility] [place] [address] [place] [facility] * Culture, Urine (10/01/2019 12:24 PM FILLER SPREADER) Culture Result Three or more bacterial [facility] species isolated from urine Hospital Lab indicates colonization or fecal contamination. Submission of a repeat specimen is suggested. Isolate 1 Mixed Jasmin [facility] Specimen Clean Voided Urine Performing Organization Address City/[facility] Ph one Number [facility] [address] LABORATORIES [facility] [address] [place] [address] * Urinalysis Microscopic Only (10/01/2019 12:24 PM FILLER SPREADER) Microscopic RBC 0-5 0 - 5 /hpf [facility] Urine [facility] [place] [facility] Microscopic WBC >40 (A) 0 - 5 /hpf [facility] Urine [facility] [place] [facility] Epithelial Large (A) Absent [facility] Cells [facility] [place] [facility] Hyaline Cast Small (A) Absent [facility] [place] [facility] Bacteria Absent Absent [facility] [place] [facility] Specimen Clean Voided Urine Performing Organization Address City/[facility] Ph one Number [facility] [address] [place], [place] [phone] [facility] [address] [place] [address] [place] [facility] * Urinalysis Reflex (10/01/2019 12:24 PM FILLER SPREADER) Appearance, Yellow [facility] Urine [facility] [place] [facility] Glucose Urine 100 (A) Negative mg/dL [facility] [place] [facility] Bilirubin Urine Negative Negative [facility] [place] [facility] Ketones Urine Negative Negative mg/dL [facility] [place] [facility] Specific 1.017 1.001 - 1.030 [facility] [place], UA [facility] [place] [facility] Hemoglobin Negative Negative [facility] Urine [facility] [place] [facility] PH Urine 6.0 5.0 - 8.0 [facility] [place] [facility] Protein Urine Trace (A) Negative mg/dL [facility] Qual [facility] [place] [facility] Urobilinogen Negative Negative EU/dL [facility] Urine [facility] [place] [facility] Nitrite Urine NegativeComment: Culture Negative [facility] Ordered [facility] [place] [facility] Leukocyte Positive (A) Negative [facility] Esterase [facility] [place] [facility] Specimen Clean Voided Urine Performing Organization Address City/State/[facility] Ph one Number [facility] [address] [place], [place] [phone] [facility] [address] [place] [address] [place] [facility] documented in this encounter Visit Diagnoses Diagnosis Flank pain Abdominal pain, unspecified site documented in this encounter Administered Medications Action Date Dose Rate Site Medication Order MAR Action 10/01/2019 3:08 PM FILLER SPREADER 50 mcg fentaNYL (SUBLIMAZE) injection 50 mcg Given 50 mcg, Intravenous, Once, 10/01/19 a t 1410, For 1 dose 10/01/2019 4:19 PM FILLER SPREADER 50 mcg fentaNYL (SUBLIMAZE) injection 50 mcg Given 50 mcg, Intravenous, Once, 10/01/19 a t 1604, For 1 dose, Administer over 2 minutes; max dose for IVP is 2 mcg/kg. Note: Limit does not apply to patients who may be tolerant to opioid therapy o r on continuous IV or PO opiate therapy., 10/01/2019 4:34 PM FILLER SPREADER 983.61 mL/hr sodium chloride 0.9% (NS) IV Bolus Restarted 1,000 mL, Intravenous, Administer over 61 Minutes, Once, 10/01/19 at 1603, For 1 dose 1,000 mL 983.61 mL/hr New Bag 10/01/2019 4:19 PM FILLER SPREADER documented in this encounter"
--- OUTSIDE RECORDS SUMMARY | 2020-03-16 13:47 | XMS REPORT | Encounter Summary ---
Author Author [facility] Organization [facility] Address Unknown Phone Unavailable Care Team Providers Care Recoil Spring Winder Name Role Phone Ebony Sharp MD PCP Reason for Visit * HH Auth Cert Referred By Contact Referred To Contact Status Reason Specialty Diagnoses / Procedures Encounter Details Care Team Description Date Type Department Gaby Wolff OT TELEPHONE ENCOUNTER 10/02/2019 Home Care Visit [facility] Home Care and page [facility] [address] [facility] [address] [place] [phone] Social History Date Tobacco Use Types Packs/Day [...] this visit Shared: Advance 09/09/2019 Directives Disciplines: Snf, SHARED Active 1 goal linked to scheduled/documented intervention 1 goal intervention scheduled/documented in this visit Shared: Diabetes: 09/09/2019 Knowledge Deficit Related to Diabetic Foot Care Disciplines: Snf, Physical Therapy, Occupational Therapy, SHARED Active 1 goal linked to scheduled/documented intervention 1 goal intervention scheduled/documented in this visit Shared: Medication Management 09/09/2019 Management and Disciplines: Education Snf, Physical of All Therapy, Occupational Home Therapy, SHARED Medication s Including Prescripti on and OTC. Active 1 goal linked to scheduled/documented intervention 1 goal intervention scheduled/documented in this visit Shared: Pain Management 09/09/2019 Disciplines: Snf, Physical Therapy, Occupational Therapy, SHARED Active 1 goal linked to scheduled/documented intervention 1 goal intervention scheduled/documented in this visit Shared: Patient Strength, 09/09/2019 Goals and Care Preferences Disciplines: Snf, Physical Therapy, Occupational Therapy, SHARED Goal Met? [...] Goal: Directive yes Shared: Durable Power of Forging Dies Final Finisher Advance (DPOA), Health Care Power directives of Forging Dies Final Finisher (HCPOA) and obtained, Living Will or if [...] Preference short of breath, go to [facility], visit family, Goal: cook own meals and bathe Shared: and dress without Patient/Ca assistance. regiver will progress towards goals and achieve them documented in this encounter
--- OUTSIDE RECORDS SUMMARY | 2020-03-16 13:47 | XMS REPORT | Encounter Summary ---
Author Author [facility] Organization [facility] Address Unknown Phone Unavailable Care Team Providers Care Low Altitude Air Defense Officer Name Role Phone Ebony Sharp MD PCP Reason for Visit * HH Auth Cert Referred By Contact Referred To Contact Status Reason Specialty Diagnoses / Procedures Encounter Details Care Team Description Date Type Department Melva Stephenson RN CASE COMMUNICATION 09/27/2019 Home Care Visit [facility] Home Care and page [facility] [address] [facility] [address] [place] [phone] Social History Date Tobacco Use Types Packs/Day [...] Goal: Directive yes Shared: Durable Power of Scissors Grinder Advance (DPOA), Health Care Power directives of Scissors Grinder (HCPOA) and obtained, Living Will or if [...]
--- OUTSIDE RECORDS SUMMARY | 2020-03-16 13:47 | XMS REPORT | Encounter Summary ---
Author Author [facility] Organization [facility] Address Unknown Phone Unavailable Care Team Providers Care Telecasting Technician Name Role Phone Ebony Sharp MD PCP Reason for Visit * HH Auth Cert Referred By Contact Referred To Contact Status Reason Specialty Diagnoses / Procedures Encounter Details Care Team Description Date Type Department Sherley Dixon TELEPHONE ENCOUNTER 09/26/2019 Home Care Visit [facility] Home Care and page [facility] [address] [facility] [address] [place] [address] Social History Date Tobacco [...] Goal: Directive yes Shared: Durable Power of Etl Database Developer Advance (DPOA), Health Care Power directives of Etl Database Developer (HCPOA) and obtained, Living Will or [...]
--- OUTSIDE RECORDS SUMMARY | 2020-03-16 13:47 | XMS REPORT | Encounter Summary ---
Author Author [facility] Organization [facility] Address Unknown Phone Unavailable Care Team Providers Care Plate Embosser Name Role Phone Ebony Sharp MD PCP Encounter Details Care Team Description Date [place] [address] [place], [place] [phone] Nephrolithiasis 09/29/2019 Imaging [facility] Radiol ogy Appointment [address] [place] [phone] Social History Date Tobacco Use Types Packs/Day [...] AP Routine 09/29/2019 Neph rolithiasis 12:10 PM BALLPOINT PEN ASSEMBLY MACHINE OPERATOR documented in this encounter Results * XR Abdomen single view AP (09/29/2019 12:10 PM BALLPOINT PEN ASSEMBLY MACHINE OPERATOR) Specimen Impressions Performed At Left ureteral stent. No renal or bladder calculi. ABI FELIPE Nonobstructive bowel gas pattern. Previ ous cholecystectomy. Narrative Performed At Patient: ISIAH BENÍTEZ Sex#: F #: [id number] Jose #: [id number] Location: BS XR 4 Procedure Requested: [id number] XR ABDOM EN SINGLE VIEW AP Reason for Exam: Nephrolithiasis Exam Ordered: 09/29/2019 120 1 Exam Date/Time: 09/29/2019 1210 Begin exam date/time: 09/29/2019 1203 XR ABDOMEN SINGLE VIEW AP Date: 09/29/2019 12:10 PM History: Nephrolithiasis Procedure Note Interface, Rad Results In - 09/29/2019 12:53 PM BALLPOINT PEN ASSEMBLY MACHINE OPERATOR Patient: ISIAH BENÍTEZ Sex#: F #: 1950 Jose#: [id number] Location: XR Procedure Requested: [id number] XR ABDOMEN SINGLE VIEW AP Reason for [...]
--- OUTSIDE RECORDS SUMMARY | 2020-03-16 13:47 | XMS REPORT | Encounter Summary ---
Author Author [facility] Organization [facility] Address Unknown Phone Unavailable Care Team Providers Care Telecommunicator Supervisor Name Role Phone Ebony Sharp MD PCP Reason for Visit * HH Auth Cert Referred By Contact Referred To Contact Status Reason Specialty Diagnoses / Procedures Encounter Details Care Team Description Date Type Department Aury Louis RN SN OASIS RESUMPTION OF CARE 09/27/2019 [facility] Care [facility] [address] [facility] [address] [place] [address] Social History Date Tobacco Use [...] Comments Vital Sign 124/85 09/27/2019 11:16 AM OCCUPATIONAL ANALYST Blood Pressure 68 09/27/2019 11:16 AM OCCUPATIONAL ANALYST Pulse 36.1 C (97 F) 09/27/2019 11:16 AM OCCUPATIONAL ANALYST Temperature 14 09/27/2019 11:16 AM OCCUPATIONAL ANALYST Respiratory Rate 94% 09/27/2019 11:16 AM OCCUPATIONAL ANALYST Oxygen Saturation - - Inhaled Oxygen Concentration - - Weight - - Height - - Body Mass Index documented in this encounter Plan of Treatment Not on filedocumented as of this encounter Visit Diagnoses Not on filedocumented in this encounter Home Health Visit - Care Plan Visit Type - SN OASIS Resumption Of Ca re Discipline - Correction Status Goals Interventions Problem Descriptio Start Date n Active 1 goal linked to scheduled/documented intervention 4 goal interventions scheduled/documented in this visit Resumption 09/27/2019 Disciplines: Correction, Tree Topper, SHARED Active 2 goals linked to scheduled/documented [...] Patient instructed on complications of diabetes mellitus: Family Life Counselor Complications of Diabetes (Romulo). Patient response to [...] Goal: Directive yes Shared: Durable Power of Developer Analyst Advance (DPOA), Health Care Power directives of Developer Analyst (HCPOA) and obtained, Living Will or [...] getting Preference short of breath, go to [facility], visit family, Goal: cook own meals and bathe Shared: and dress without Patient/Ca assistance. regiver will progress towards goals and achieve them documented in this encounter Home Health Visit - Actions and Narratives Your Diagnosis Codes have been entered. Please review for proper dx and sequencing. Enter Symptom Management Ratings for Di agnosis in M1021 / M1023. Review Acampo for completeness. To acknowledge/agree to these changes, [...]
--- OUTSIDE RECORDS SUMMARY | 2020-03-16 13:47 | XMS REPORT | Encounter Summary ---
Author Author [facility] Organization [facility] Address Unknown Phone Unavailable Care Team Providers Care Application Tester Name Role Phone Ebony Sharp MD PCP Encounter Details Care Team Description Date Type Department Letty Ragland RN 09/27/2019 Telephone [facility] Primar y Care - [place] [address] [facility] [address] [place], [place] [id number] Social History Date Tobacco Use Types Packs/Day [...] Lacy Ramirez LPN - 09/28/2019 9:26 AM CLAIMS CONFIGURATION ANALYST Spoke with Tanisha and advised pt needs to make an appt. MS CONFIGURATION ANALYST * Telephone Encounter - Ebony Sharp MD - 09/27/2019 9:21 PM CLAIMS CONFIGURATION ANALYST I just need to see her before I can sign per Medicare rules (and will gladly sig n once I see her). Thanks!! MS CONFIGURATION ANALYST * Telephone Encounter - Letty Ragland RN - 09/27/2019 1:19 PM CLAIMS CONFIGURATION ANALYST Received phone call from ADAM Garay with [facility]. Tanisha notif ied office that they have resumed care of patient and will do one visit this wee k, 2 visits next week and then once per week until the end of patients cert. Per iod. [facility] will need authorization from PCP for these visits. Patients L OV was 05/2019. Tanisha can be reached at [phone] MS CONFIGURATION ANALYST documented in this encounter Plan of Treatment Not on filedocumented as of this encounter Visit Diagnoses Not on filedocumented in this encounter
--- OUTSIDE RECORDS SUMMARY | 2020-03-16 13:47 | XMS REPORT | Encounter Summary ---
Author Author [facility] Organization [facility] Address Unknown Phone Unavailable Care Team Providers Care Floor Layer Helper Name Role Phone Ebony Sharp MD PCP Reason for Visit * Reason Comments Follow-up Hospital & orders Encounter Details Care Team Description Date Type Department Ebony Sharp MD [address] [facility] [address] [place] [address] Type 2 diabetes mellitus with hyperglyce prasanna, 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) (Primary Dx); Mixed hyperlipidemia; Hypertension, unspecified type 10/03/2019 Office Visit [facility] [address] [facility] [address] [place] [address] Social History Date Tobacco Use [...] Comments Vital Sign 100/60 10/03/2019 4:48 PM FEE CLERK Blood Pressure 65 10/03/2019 4:48 PM FEE CLERK Pulse - - Temperature - - Respiratory Rate 93% 10/03/2019 4:48 PM FEE CLERK Oxygen Saturation - - Inhaled Oxygen Concentration 96.4 kg (212 lb 9.6 oz) 10/03/2019 4:48 PM FEE CLERK Weight 157.5 cm (5' 2") 10/03/2019 4:48 PM FEE CLERK Height 38.89 10/03/2019 4:48 PM FEE CLERK Body Mass Index documented in this encounter Progress Notes * Ebony Sharp MD - 10/03/2019 4:10 PM FEE CLERK CC: Follow-up (Hospital & orders) HPI [...] Medicine) Ebony Sharp MD as PCP - [facility] CECILIO Joaquin MA as Paper Counter Melva Stephenson RN as Clinical Ribbing Machine Operator (Home Health Services) The patients demographics, including [...] mg 8 tablet 0 vit A/vit C/biotin/zinc/copper ([id number],VIT A,C-BIOTIN, ORAL) Take by mouth daily. HYDROcodone-acetaminophen [...] on phone: None Gets together: None Attends moravian service: None Active member of club or [...] Future Hypertension, unspecified type Ebony Sharp MD CLERK documented in this encounter Plan of [...]
--- OUTSIDE RECORDS SUMMARY | 2020-03-16 13:48 | XMS REPORT | Encounter Summary ---
Author Author [facility] Organization [facility] Address Unknown Phone Unavailable Care Team Providers Care Art Education Professor Name Role Phone Ebony Sharp MD PCP Reason for Referral * Home Health Care (Routine) Referred By Contact Referred To Contact Status Reason Specialty Diagnoses / Procedures Art Watts II, DO [address] [place] [address] [facility] [address] [place] [address] Authorization Specialty Services Home Health Diagnoses Not [...] Description Date Type Department Luciano Funes MD [address] Dept of Emergency Services [place], [place] [id number] Jackson Gonzalez MD [address] [place], [place] [id number] Hospitalist, Physician Art Watts II, [address] [place] [address] [phone] Pyelonephritis (Primary Dx); Sepsis, due to unspecified organism, unspecified whether acute organ dysfunction present (HCC); Ureteral calculus, left; Chronic respiratory failure, unspecified whether with hypoxia or hypercapnia (HCC); Chronic obstructive pulmonary disease, unspecified COPD type (HCC); Essential hypertension; Generalized abdominal pain; Morbid obesity due to excess calories ([facility]); SASHA on CPAP; Suspected UTI; Type 2 diabetes mellitus with hyperglycemia, with long-term current use of insulin ([facility]); Confusion; Elevated LFTs 09/17/2019 [facility] 09/23/[address] [place] [address] Social History Date Tobacco Use Types Packs/Day [...] Comments Vital Sign 115/76 09/23/2019 12:09 PM QUALITY CONTROL ASSOCIATE Blood Pressure 63 09/23/2019 12:09 PM QUALITY CONTROL ASSOCIATE Pulse 36.7 C (98.1 F) 09/23/2019 12:09 PM QUALITY CONTROL ASSOCIATE Temperature 17 09/23/2019 12:09 PM QUALITY CONTROL ASSOCIATE Respiratory Rate 98% 09/23/2019 12:09 PM QUALITY CONTROL ASSOCIATE Oxygen Saturation - - Inhaled Oxygen Concentration 102 kg (224 lb 13.9 oz) 09/23/2019 4:34 AM QUALITY CONTROL ASSOCIATE Weight 157.5 cm (5' 2") 09/17/2019 2:17 PM QUALITY CONTROL ASSOCIATE Height 41.13 09/17/2019 2:17 PM QUALITY CONTROL ASSOCIATE Body Mass Index documented in this encounter Discharge Summaries * Art Watts II, - 09/23/2019 1:06 PM QUALITY CONTROL ASSOCIATE [facility] Hospitalist - Discharge Summary Patient Name: Isiah Do Board Account No: [id number] Date of : 1950 Date of Admission: [...] activity as tolerated Scheduled Follow Up Appointments/Studies ([facility] Providers): Future Appointments Date Time Provider Department Center 09/28/2019 3:35 PM INDEP AUA XR 1 INDEP AUA XR 09/28/2019 4:00 PM Darin Huber MD INDEP AUA CL [facility] 10/04/2019 1:45 PM SL US 2 [facility] [place] 10/11/2019 1:30 PM Darin Huber MD INDEP [...] 2 CAPSULES BY MOUTH THREE TIMES DAILY [id number](VIT A,C-BIOTIN) ORAL Oral, Daily hydroCHLOROthiazide 25 MG [...] biliary obstruction, if clinically warranted. READING SITE: [facility] ATTESTATION STATEMENT: The staff radiologist has personally reviewed the images and dictated, reviewed, or edited the final report. Ct Head Wo Contrast Result Date: 09/20/2019 Impression: No acute intracranial process. Mild cerebral volume loss. Mild chronic small vessel ischemic disease. The above findings are in general agreement with those in the preliminary report provided by [facility]. READING SITE: [facility]. ATTESTATION STATEMENT: The Staff Radiologist has personally reviewed the images and dictated, reviewed, or edited the final report. Fl Retrograde Urography In Or Result Date: 09/21/2019 Fluoroscopic support for the Urology services. Please see operative report for details. READING SITE: [facility] Us Abdomen Limited Result Date: 09/20/2019 Impression: 1. Diffuse hepatic steatosis without focal hepatic lesion. 2. Cholecystectomy. ATTESTATION STATEMENT: The Staff Radiologist has personally reviewed this study and agrees with the findings in this report. READING SITE: [facility] Xr Chest 2 Views (pa And Lateral) Result Date: 09/19/2019 1. Bibasilar subsegmental atelectasis. READING SITE: [facility] [place] Xr Chest Single View Frontal Result Date: 09/17/2019 1. No acute cardiopulmonary abnormality. 2. Low lung volumes. Mild atelectasis. READING SITE: [facility] Cardiac Studies during this encounter: No [...] this summary note. Art Watts II, DO [facility] . ITY CONTROL ASSOCIATE documented in this encounter Medications at Time [...] A/vit Take by mouth 0 C/biotin/zinc/copper daily. (CLTT-[id number]-CCRQ,VIT A,C-BIOTIN, ORAL) 06/26/2019 12/24/2019 amitriptyline (ELAVIL) 25 [...] Abdirizak Garcia NP - 09/22/2019 9:47 AM QUALITY CONTROL ASSOCIATE [facility] Hospitalist - Progress Note Patient Name: Isiah Do Board Account No: [id number] Date of : 1950 Date of Admission: 09/17/2019 7:42 AM Subjective Follow up regarding ureterolithiasis, diabetes The patient's first comments are "I do not have transportation until later [facility], I do not want to be [...] A1c 12.7% Only on Lantus 20 Units EXECUTIVE ACCOUNT MANAGER Just completed a prednisone taper for her [...] of acute exacerbation On O2 as needed EXECUTIVE ACCOUNT MANAGER Reports that she was on a Prednisone taper EXECUTIVE ACCOUNT MANAGER which she completed 09/22 Continue Breo and [...] up Morbid obesity due to excess calories ([facility]) Body mass index is 40.65 kg/m. Complicates all aspects of care Counseled on lifestyle modifications and risk reduction strategies See my orders for additional details regarding this patients treatment plan. Room: [address] [place] [address] Diet: Diet-Consistent Carbohydrate (75 gm) Code Status: [...] prochlorperazine OR prochlor perazine Abdirizak Garcia NP [facility] . ITY CONTROL ASSOCIATE * Arabella Irwin RN ANP - 09/22/2019 8:34 AM QUALITY CONTROL ASSOCIATE [facility] Urology Progress Note Subjective: Interval History: Discussed [...] Active Problems: COPD (chronic obstructive pulmonary disease) ([facility]) Type 2 diabetes mellitus with hyperglycemia, with long-term current use of ins ulin ([facility]) Essential hypertension SASHA on CPAP Morbid obesity due to excess calories ([facility]) Generalized abdominal pain Suspected UTI Chronic respiratory failure ([facility]) Confusion Elevated LFTs LOS: 5 days 1. [...] tomorrow due to transportation. Will defer to [facility]. Appreciate their assistance. We will sign off on care. Electronically signed by Arabella Irwin 09/22/2019 8:34 AM ITY CONTROL ASSOCIATE Associated attestation - Omar Kidd MD - 09/22/2019 9:57 AM QUALITY CONTROL ASSOCIATE I personally saw and examined the patient. I agree with Arabella Irwin NP's f indings, assessment and plan as documented in the note below. Feeling well today. Worried about going home tonight, due to lack of ride. Ok to discharge from standpoint. Script for norco sent to pharmacy. Omar Kidd * Abdirizak Garcia NP - 09/21/2019 10:38 AM QUALITY CONTROL ASSOCIATE [facility] Hospitalist - Progress Note Patient Name: Isiah Do [facility] Account No: [id number] Date of : 1950 Date of Admission: [...] with long-term current use of insul in ([facility]) Last A1c 11.0 in May 2019 Only on Lantus 20 Units EXECUTIVE ACCOUNT MANAGER BG trends 200-300s Continue Lantus to 25 [...] Monitor trends COPD (chronic obstructive pulmonary disease) ([facility]) Stable. No s/s of acute exacerbation On O2 as needed EXECUTIVE ACCOUNT MANAGER Reports that she was on a Prednisone taper EXECUTIVE ACCOUNT MANAGER and had 4 more days of 20mg [...] [place] Morbid obesity due to excess calories ([facility]) Body mass index is 40.65 kg/m. Complicates all aspects of care Counseled on lifestyle modifications and risk reduction strategies See my orders for additional details regarding this patients treatment plan. Room: [facility] MAIN OR POOL ROOMS/N* Diet: Diet NPO [...] [OCT Hold] prochl orperazine Abdirizak Garcia NP [facility] . ITY CONTROL ASSOCIATE * Arabella Irwin RN ANP - 09/21/2019 9:02 AM QUALITY CONTROL ASSOCIATE [facility] Urology Progress Note Subjective: Interval History: Resting [...] Active Problems: COPD (chronic obstructive pulmonary disease) ([facility]) Type 2 diabetes mellitus with hyperglycemia, with long-term current use of ins ulin ([facility]) Essential hypertension SASHA on CPAP Morbid obesity due to excess calories ([facility]) Generalized abdominal pain Suspected UTI Chronic respiratory failure ([facility]) Confusion Elevated LFTs LOS: 4 days 1. [...] signed by Arabella Irwin 09/21/2019 9:02 AM ITY CONTROL ASSOCIATE Associated attestation - Janet Aragon MD - 09/21/2019 2:40 PM QUALITY CONTROL ASSOCIATE Pt seen, discussed procedure with her, she v/u and wishes to proceed. * Arabella Irwin RN ANP - 09/20/2019 9:01 AM QUALITY CONTROL ASSOCIATE [facility] Urology Progress Note Subjective: Interval History: Intermittent [...] Active Problems: COPD (chronic obstructive pulmonary disease) ([facility]) Type 2 diabetes mellitus with hyperglycemia, with long-term current use of ins ulin (HCC) Essential hypertension SASHA on CPAP Morbid obesity due to excess calories ([facility]) Generalized abdominal pain Suspected UTI Chronic respiratory failure ([facility]) LOS: 3 days 1. Left mid ureteral [...] signed by Arabella Irwin 09/20/2019 9:01 AM ITY CONTROL ASSOCIATE * Hope Cox, CUTTING MACHINE TENDER DECORATIVE - 09/20/2019 8:55 AM QUALITY CONTROL ASSOCIATE [facility] Hospitalist - Progress Note Patient Name: Isiah Do Board Account No: [id number] Date of : 1950 Date of Admission: [...] performing provider), ECG, telemetry, current inpatient medications, virtualization consultant notes and support teacher notes with pertainent findings noted within the [...] with long-term current use of insul in ([facility]) Last A1c 11.0 in May 2019 Only on Lantus 20 Units EXECUTIVE ACCOUNT MANAGER BG trends 200-300s Continue Lantus to 25 units nightly Monitor BG ac&hs SSI to level 5 Hypoglycemia protocol, CC diet COPD (chronic obstructive pulmonary disease) (HCC) Stable. No s/s of acute exacerbation On O2 as needed EXECUTIVE ACCOUNT MANAGER Reports that she was on a Prednisone taper EXECUTIVE ACCOUNT MANAGER and had 4 more days of 20mg [...] details regarding this patients treatment plan. Room: [address] [place] [address] Diet: Diet-Consistent Carbohydrate (75 gm) Code Status: [...] prochlorperazine OR prochlor perazine Hope Cox APRN [facility] . ITY CONTROL ASSOCIATE * Hope Cox APRN - 09/19/2019 12:08 PM QUALITY CONTROL ASSOCIATE [facility] Hospitalist - Progress Note Patient Name: Isiah Do Board Account No: [id number] Date of : 1950 Date of Admission: [...] re results (as indicated), current inpatient medications, virtualization consultant notes and s upport staff notes [...] with long-term current use of insul in ([facility]) Last A1c 11.0 in May 2019 BG trends 200-300s Increase Lantus to 25 units nightly Monitor BG ac&hs Increase SSI to level 4 Hypoglycemia protocol, CC diet COPD (chronic obstructive pulmonary disease) ([facility]) Stable. No s/s of acute exacerbation On O2 as needed EXECUTIVE ACCOUNT MANAGER Reports that she was on a Prednisone taper EXECUTIVE ACCOUNT MANAGER and had 4 more days of 20mg [...] details regarding this patients treatment plan. Room: [address] [place] [address] Diet: Diet-Consistent Carbohydrate (75 gm) Code Status: [...] prochlorperazine OR prochlor perazine Hope Cox APRN [facility] . ITY CONTROL ASSOCIATE * Arabella Irwin RN ANP - 09/19/2019 9:41 AM QUALITY CONTROL ASSOCIATE [facility] Urology Progress Note Subjective: Interval History: Intermittent [...] signed by Arabella Irwin 09/19/2019 9:41 AM ITY CONTROL ASSOCIATE * Hope Cox, CUTTING MACHINE TENDER DECORATIVE - 09/18/2019 11:24 AM QUALITY CONTROL ASSOCIATE [facility] Hospitalist - Progress Note Patient Name: Isiah Do Board Account No: [id number] Date of : 1950 Date of Admission: [...] the performing provider), ECG, current inpatient medications, virtualization consultant notes, supp ort staff notes, prior [...] of acute exacerbation On O2 as needed EXECUTIVE ACCOUNT MANAGER Continue Breo and Duonebs per home regimen [...] details regarding this patients treatment plan. Room: [address] [place] [address] Diet: Diet-Consistent Carbohydrate (75 gm) Code Status: [...] prochlorperazine OR prochlor perazine Hope Cox APRN [facility] . ITY CONTROL ASSOCIATE documented in this encounter H&P Notes * Lashae Crenshaw MD - 09/17/2019 12:49 PM QUALITY CONTROL ASSOCIATE [facility] Hospitalist - History & Physical Patient Name: Isiah Benítez Account No: [id number] Date of : 1950 Date of Admission: [...] ankle. COPD (chronic obstructive pulmonary disease) ([facility]) Depression Draining postoperative wound 08/08/2016 Endometriosis Essential hypertension Fractures [address] in Left ankle MATA (generalized anxiety disorder) 09/24/2015 Hernia of abdominal cavity Kidney stone Mixed hyperlipidemia 09/24/2015 Morbid obesity due to excess calories ([facility]) 07/10/2016 On home oxygen therapy 2L - usually needs if has an exerbation of COPD, or resp illness SASHA on CPAP Osteoarthritis Refusal of blood transfusions as patient is Jehovah's witness Sleep apnea CPAP use Type 2 diabetes mellitus with hyperglycemia, with long-term current use of i nsulin ([facility]) 06/29/2016 Urinary calculi Urinary [...] STENT PLACEMENT; Surgeon: Darin Huber MD; Location: [facility] Main OR; Service: Urology; Laterality: Left; CYSTOSCOPY, [...] WITH MESH; Surgeon: Medardo Tate MD; Location: [facility] Main OR; Service: General; Laterality: N/A; TONSILLECTOMY [...] joann es a day. vit A/vit C/biotin/zinc/copper ([id number]-LXRI,VIT A,C-BIOTIN, ORAL) Take by tanna th daily. [...] the performing provider), ECG, current inpatient medications, support teacher notes, p rior admission/outpatient notes and prior [...] with long-term current use of insul in ([facility]) Continued home Lantus 20. Ordered SSI #2 with ACHS Accu-Cheks. COPD (chronic obstructive pulmonary disease) ([facility]) Not in acute exacerbation. Continued home inhalers. Continuous pulse ox Oxygen supplementation as needed. Morbid obesity due to excess calories ([facility]) Complicates all aspects of care. In addition, [...] t as noted above. Lashae Crenshaw MD [facility] . ITY CONTROL ASSOCIATE documented in this encounter Consult Notes * Hilario Diego MD - 09/21/2019 5:28 PM QUALITY CONTROL ASSOCIATE Associated Order(s): IP CONSULT TO ENDOCRINOLOGY Endocrinology [...] 08/08/2016 Allergic rhinitis Anxiety Bronchitis, chronic ([facility]) Cataract 2011, 2013 bilat cateract surgery Chronic pain disorder back, ribs, and ankle. COPD (chronic obstructive pulmonary disease) ([facility]) Depression Draining postoperative wound 08/08/2016 Endometriosis Essential hypertension Fractures [address] in Left ankle MATA (generalized anxiety disorder) 09/24/2015 Hernia of abdominal cavity Kidney stone Mixed hyperlipidemia 09/24/2015 Morbid obesity due to excess calories ([facility]) 07/10/2016 On home oxygen therapy 2L - usually needs if has an exerbation of COPD, or resp illness SASHA on CPAP Osteoarthritis Refusal of blood transfusions as patient is Jehovah's witness Sleep apnea CPAP use Type 2 diabetes mellitus with hyperglycemia, with long-term current use of i nsulin ([facility]) 06/29/2016 Urinary calculi Urinary [...] STENT PLACEMENT; Surgeon: Darin Huber MD; Location: [facility] Main OR; Service: Urology; Laterality: Left; CYSTOSCOPY, RETROGRADE PYELOGRAM, URETEROSCOPY, LASERLITHOTRIPSY, WITH URETE RAL STENT PLACEMENT Left 08/02/2019 Procedure: CYSTOSCOPY, LEFT RETROGRADE PYELOGRAM, LEFT URETEROSCOPY, LASER LITH OTRIPSY, LEFT URETERAL STENT EXCHANGE; Surgeon: Darin Huber MD; Location: [facility] Main OR; Service: Urology; Laterality: Left; CYSTOSCOPY, [...] Unknown at Unknown time vit A/vit C/biotin/zinc/copper ([id number],VIT A,C-BIOTIN, ORAL) Take by mouth daily. 09/16/2019 [...] on phone: None Gets together: None Attends scientologist service: None Active member of club or [...] is here. Hilario Diego 09/21/2019 5:28 PM ITY CONTROL ASSOCIATE * Theresa Mata RN - 09/20/2019 3:22 PM QUALITY CONTROL ASSOCIATE Inpatient Diabetes Education Note Diabetes Education provided [...] high?: Diet Education provided: Diabetes Education Materials: [facility] "Diabetes Survival Skills" Guide(Insulin info rmation sheet, Hypo and Hyperglycemia sheets, [facility] Diabetes Managament and Educa tion brochure, [...] rotation, Lantus and Humalog. 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 Unable to work due to COPD. Demonstrated use of One Touch Verio meter and will need RX for strips and Lancets. Level of service: 30 minutes Recommendations: Recommend OP DM Education or may need Home Health Education for Diabetes Please refer to [employer] directory for Monitoring Tech's phone number. Lewis Mata RN, CDE Fiorella Phillips RN - 09/19/2019 12:31 PM QUALITY CONTROL ASSOCIATE Associated Order(s): CONSULT TO CARE PROGRESSION Advance [...] s or concerns. Isabel Boyd RN, BSN Medical Historian [phone] Arabella Cortes RN ANP - 09/18/2019 8:26 AM QUALITY CONTROL ASSOCIATE Associated Order(s): IP CONSULT TO UROLOGY [facility] UROLOGY CONSULT NOTE Patient: Isiah Benítez Age: [...] end of urination. Labs reviewed. WBC 12.83K. Double End Tenoner Operator 1.0. UA (+) for trace protein, >40 [...] 08/08/2016 Allergic rhinitis Anxiety Bronchitis, chronic ([facility]) Cataract 2011, 2012 bilat cateract surgery Chronic pain disorder back, ribs, and ankle. COPD (chronic obstructive pulmonary disease) ([facility]) Depression Draining postoperative wound 08/08/2016 Endometriosis Essential hypertension Fractures [address] in Left ankle MATA (generalized anxiety disorder) 09/24/2015 Hernia of abdominal cavity Kidney stone Mixed hyperlipidemia 09/24/2015 Morbid obesity due to excess calories ([facility]) 07/10/2016 On home oxygen therapy 2L - usually needs if has an exerbation of COPD, or resp illness SASHA on CPAP Osteoarthritis Refusal of blood transfusions as patient is Jehovah's witness Sleep apnea CPAP use Type 2 diabetes mellitus with hyperglycemia, with long-term current use of i nsulin ([facility]) 06/29/2016 Urinary calculi Urinary [...] STENT PLACEMENT; Surgeon: Darin Huber MD; Location: [facility] Main OR; Service: Urology; Laterality: Left; CYSTOSCOPY, [...] INSER TION; Surgeon: Janet Aragon MD; Location: [facility] Main OR; Service: Urolo gy; Laterality: Left; [...] WITH MESH; Surgeon: Medardo Tate MD; Location: [facility] Main OR; Service: General; Laterality: N/A; TONSILLECTOMY [...] Unknown at Unknown time vit A/vit C/biotin/zinc/copper ([id number],VIT A,C-BIOTIN, ORAL) Take by mouth daily. 09/16/2019 [...] injection 2.5-5 mg 2.5-5 mg Intravenous Q4H [place] N Lashae Crenshaw MD 5 mg at [...] file Gets together: Not on file Attends scientologist service: Not on file Active member of [...] 10:05 AM Positive (A) Negative Final Specific [place], UA Date/Time Value Ref Range Status 09/17/2019 [...] biliary obstruction, if clinically warranted. READING SITE: [facility] ATTESTATION STATEMENT: The staff radiologist has personally reviewed the images and dictated, reviewed, or edited the final report. Xr Chest Single View Frontal Result Date: 09/17/2019 1. No acute cardiopulmonary abnormality. 2. Low lung volumes. Mild atelectasis. READING SITE: [facility] ASSESSMENT/PLAN: 1. Left mid ureteral calculus - [...] Erika morales. We will continue to follow. ITY CONTROL ASSOCIATE Associated attestation - Antonio Duque MD - 09/19/2019 10:59 AM QUALITY CONTROL ASSOCIATE I personally saw and examined the patient. [...] Jaylyn Batres RN - 09/17/2019 1:00 PM QUALITY CONTROL ASSOCIATE Associated Order(s): CONSULT - VASCULAR ACCESS TEAM Consulted for IV access. Patient had 2 previous IV's infiltrate. This RN placed a 20g 2.25" Accucath to the right AC, brisk blood aspirate, flushed. Rae MEDINA upd ated. ITY CONTROL ASSOCIATE documented in this encounter Nursing Notes * Sunny Boyer, ADAM - 09/19/2019 11:27 PM QUALITY CONTROL ASSOCIATE 09/19/19 1865 Goals for Shift Pt/Family Goal for Shift pain control Nursing Goals for the Shift pain control Plan/Interventions to meet Goal PRN pain meds, repositioning ITY CONTROL ASSOCIATE documented in this encounter ED Notes * Rae Reyes RN - 09/17/2019 1:04 PM QUALITY CONTROL ASSOCIATE 800ml NS left to go and restarted second bag of NS since Vascular Access establi shed right ac IV. Lab completed second set of cultures. Ordered diabetic tray fo r patient. C/o 8 upper abdominal pain. ITY CONTROL ASSOCIATE * Barby Olivo RN - 09/17/2019 12:40 PM QUALITY CONTROL ASSOCIATE PICC team at bedside ITY CONTROL ASSOCIATE * Rae Reyes RN - 09/17/2019 11:[address]. Funes states patient will likely need to be admitted. Notified Rachel of n eed for additional ultrasound guided IV placement. ITY CONTROL ASSOCIATE * Rae Reyes RN - 09/17/2019 10:55 AM QUALITY CONTROL ASSOCIATE Notified Dr. Funes of right arm ultrasound IV infiltrating after 200ml infused o f second bag of fluids. ITY CONTROL ASSOCIATE * Rae Reyes RN - 09/17/2019 10:54 AM QUALITY CONTROL ASSOCIATE Daughter called to obtain update. Update provided within HIPPA limits. Notified daughter that I will instruct patient to call her with any updates. ITY CONTROL ASSOCIATE * Rae Reyes RN - 09/17/2019 10:06 AM QUALITY CONTROL ASSOCIATE Up to brp with standby assist. Patient using hat to attempt to obtain UA. ITY CONTROL ASSOCIATE * Rae Reyes RN - 09/17/2019 8:29 AM QUALITY CONTROL ASSOCIATE adelfo Prabhakar did not see any viable options for placing IV. Rachel ultrasound guided trained IV, assessing at bedside for IV access. ITY CONTROL ASSOCIATE * Rae Reyes RN - 09/17/2019 8:20 AM QUALITY CONTROL ASSOCIATE Discussed with Vanna Fair if can assess for IV placement since unsuccessful x2 . Vanna assessing for IV access site now. ITY CONTROL ASSOCIATE * Luciano Funes MD - 09/17/2019 7:57 AM QUALITY CONTROL ASSOCIATE 09/17/2019 [facility] History [...] 08/08/2016 Allergic rhinitis Anxiety Bronchitis, chronic ([facility]) Cataract 2011, 2012 bilat cateract surgery Chronic pain disorder back, ribs, and ankle. COPD (chronic obstructive pulmonary disease) ([facility]) Depression Draining postoperative wound 08/08/2016 Endometriosis Essential hypertension Fractures [address] in Left ankle MATA (generalized anxiety disorder) 09/24/2015 Hernia of abdominal cavity Kidney stone Mixed hyperlipidemia 09/24/2015 Morbid obesity due to excess calories ([facility]) 07/10/2016 On home oxygen therapy 2L - usually needs if has an exerbation of COPD, or resp illness SASHA on CPAP Osteoarthritis Refusal of blood transfusions as patient is Jehovah's witness Sleep apnea CPAP use Type 2 diabetes mellitus with hyperglycemia, with long-term current use of i nsulin ([facility]) 06/29/2016 Urinary calculi Urinary [...] Patient: ISIAH BENÍTEZ Sex#: Paulina #: 1950 [facility]#: [id number] Location: [facility] ED SED-11 [facility] steven Requested: [id number] CT ABDOMEN PELVIS W CONTRAST Reason for [...] obs truction, if clinically warranted. READING SITE[facility] ATTESTATION Eugenia TATEMENT: The staff radiologist has personally reviewed the images and dictated, reviewed, or edited the final report. Xr Chest Single View Frontal Result Date: 09/17/2019 Patient: ISIAH BENÍTEZ Sex#: F #: [id number] Jose#: [id number] Location: [facility] ED SED-11 Rashaad harris Requested: [id number] XR CHEST SINGLE VIEW FRONTAL Reason for [...] lung volumes. Mild atelectasis . READING SITE: [facility] Results for orders placed or performed [...] Negative Ketones Urine Negative Negative mg/dL Specific [place], UA >=1.030 1.001 - 1.030 Hemoglobin Urine [...] Disposition Admit Luciano Funes MD 09/17/19 1217 ITY CONTROL ASSOCIATE * Barby Olivo RN - 09/17/2019 7:42 AM QUALITY CONTROL ASSOCIATE Bed: [id number] Expected date: Expected time: Means of arrival: Comments: soa [facility] ITY CONTROL ASSOCIATE documented in this encounter Miscellaneous Notes * Care Progression Final DC Note - Tiny Reyna RN - 09/23/2019 3:23 PM QUALITY CONTROL ASSOCIATE Final Discharge Note Final Discharge Disposition: 06-Home [...] need resumption orders. Contacted Dr. Watts via [facility] who gave verbal to resume home health. Sent orde rs to [facility]. Patient had already discharged. Was unable to present IMM letter. Tiny Reyna RN, BSN, Medical Historian [phone] s ITY CONTROL ASSOCIATE * Nutrition Note - Glenys Carlos RD LD - 09/23/2019 10:13 AM QUALITY CONTROL ASSOCIATE Nutrition Length of Stay [facility] Patient: Isiah Benítez Age: 69 [...] signed by Glenys Carlos 09/23/2019 10:13 AM ITY CONTROL ASSOCIATE * End of Shift Note - Susan Brock RN - 09/23/2019 4:59 AM QUALITY CONTROL ASSOCIATE End of Shift Summary and Plan of [...] strain all urine, pain meds as needed ITY CONTROL ASSOCIATE * End of Shift Note - Annie Melchor RN - 09/22/2019 5:20 PM QUALITY CONTROL ASSOCIATE End of Shift Summary and Plan of [...] strain all urine, pain meds as needed ITY CONTROL ASSOCIATE * Nutrition Note - Letty Andrea RD LD CNSD - 09/22/2019 4:38 PM QUALITY CONTROL ASSOCIATE Nutrition Education [facility] Patient: Isiah Benítez Age: 69 y.o. [...] signed by Letty Andrea 09/22/2019 4:38 PM ITY CONTROL ASSOCIATE * End of Shift Note - Arabella Mccormick RN - 09/21/2019 6:44 PM QUALITY CONTROL ASSOCIATE End of Shift Summary and Plan of [...] strain all urine, pain meds as needed ITY CONTROL ASSOCIATE * Operative Note - Janet Aragon MD - 09/21/2019 2:42 PM QUALITY CONTROL ASSOCIATE PREOPERATIVE DIAGNOSES: Left ureteral stone. POSTOPERATIVE DIAGNOSIS: Left ureteral stone. PROCEDURE: Cystourethroscopy, left ureteral stent removal, left retrograde pyel ogram, left ureteroscopy, laser lithotripsy, basket extraction of stone and left ureteral stent placement (6-Equatorial [place]inean x 26 cm). SURGEON: Dr. Janet Aragon. [...] was backloaded through the scope and a 6-[place]atorial [place] x 26 cm double-J stent was threaded [...] will remove her stent in 1-2 weeks. ITY CONTROL ASSOCIATE * Brief Operative Note - Janet Aragon MD - 09/21/2019 2:42 PM QUALITY CONTROL ASSOCIATE Brief Operative Note Isiah Do Board 09/21/2019 Event Time In Procedure / Incision Start 09/21/2019 1414 Pre-op Diagnosis: Left ureteral stone Post-op Diagnosis: same Procedure: CYSTOSCOPY, LEFT RETROGRADE PYELOGRAM, LEFT URETEROSCOPY, LASER LITHOTRIPSY, LEF T URETERAL STENT PLACEMENT, Left - Ureter Surgeon(s) and Role: * Janet Aragon MD - Primary Anesthesia Type: General Staff: Marine Engineering Technicians: Janna Pascal RN; Juventino Patel RN Senior Ui Software Engineer: Jermaine Alcazar Scrub Person: Alex Arredondo Float: Koko Thomas RN; Koko Rodas RN; Lori Mancia CNA Anesthesiologist: Jermaine Hines MD GEOLOGY TEACHER: Bernardino Herrera RN GEOLOGY TEACHER; Rae Louie RN GEOLOGY TEACHER Findings: See dictation Estimated Blood Loss: 0 mL Specimens: . ID Source Type Tests Collected By Collected At A Left Ureter Stone STONE ANALYSIS Janet Aragon MD 09/21/19 1433 Description: left ureter stone Comment: Pre-op diagnosis: N20.1 Implants: Implant Name Type Inv. Item Serial No. Market News Reporter Lot No. LRB No. Used Action IMPLANT STENT URETERAL CONTOUR 6FR X 26CM W/O [id number] - SNA Non-Tissue Implant IMPLANT STENT URETERAL CONTOUR 6FR X 26CM W/O [employer] 180-2 [id number] [email or web address] [id number] Left 1 Implanted Complications: None Janet Aragon Date: 09/21/2019 Time: 2:42 PM ITY CONTROL ASSOCIATE * End of Shift Note - Lauryn Ricardo RN - 09/21/2019 6:07 AM QUALITY CONTROL ASSOCIATE End of Shift Summary and Plan of [...] strain all urine, pain meds as needed ITY CONTROL ASSOCIATE * End of Shift Note - Arabella Mccormick RN - 09/20/2019 5:22 PM QUALITY CONTROL ASSOCIATE End of Shift Summary and Plan of [...] strain all urine, pain meds as needed ITY CONTROL ASSOCIATE * Assessment & Plan Note - Abdirizak Garcia NP - 09/20/2019 10:08 AM QUALITY CONTROL ASSOCIATE Associated Problem(s): Elevated LFTs (Resolved 09/23/2019) Mild Likely 2/2 fatty liver and acute infection RUQ US without acuity, hepatic steatosis ITY CONTROL ASSOCIATE * Assessment & Plan Note - Abdirizak Garcia NP - 09/20/2019 10:05 AM QUALITY CONTROL ASSOCIATE Associated Problem(s): Confusion (Resolved 09/23/2019) Resolved ITY CONTROL ASSOCIATE * Assessment & Plan Note - Art Watts II, DO - 09/20/2019 10:03 AM QUALITY CONTROL ASSOCIATE Associated Problem(s): Morbid obesity due to excess calories (HCC) Complicates all aspects of care Counseled on lifestyle modifications and risk reduction strategies ITY CONTROL ASSOCIATE * Assessment & Plan Note - Art Watts II, DO - 09/20/2019 10:03 AM QUALITY CONTROL ASSOCIATE Associated Problem(s): Chronic respiratory failure (HCC) Pulmonary hygiene Continue home COPD regimen ITY CONTROL ASSOCIATE * Assessment & Plan Note - Art Watts II, DO - 09/20/2019 10:03 AM QUALITY CONTROL ASSOCIATE Associated Problem(s): Type 2 diabetes mellitus with hyperglycemia, with long-te rm current use of insulin (HCC) Continue Lantus 25 units at bedtime Severe allergy listed to metformin Start Januvia Follow-up endocrinology as an outpatient Likely made worse by recent steroid use ITY CONTROL ASSOCIATE * Assessment & Plan Note - Art Watts II, DO - 09/20/2019 10:02 AM QUALITY CONTROL ASSOCIATE Associated Problem(s): SASHA on CPAP CPAP at bedtime ITY CONTROL ASSOCIATE * Assessment & Plan Note - Art Watts II, DO - 09/20/2019 10:01 AM QUALITY CONTROL ASSOCIATE Associated Problem(s): Essential hypertension Continue chronic home medications ITY CONTROL ASSOCIATE * Assessment & Plan Note - Art Watts II, DO - 09/20/2019 10:00 AM QUALITY CONTROL ASSOCIATE Associated Problem(s): COPD (chronic obstructive pulmonary disease) (HCC) Breo Duevelinewinnie per home regimen ITY CONTROL ASSOCIATE * Assessment & Plan Note - Art Watts II, DO - 09/20/2019 9:59 AM QUALITY CONTROL ASSOCIATE Associated Problem(s): Suspected UTI Resolved Completed 5 days Rocephin ITY CONTROL ASSOCIATE * Assessment & Plan Note - Art Watts II, DO - 09/20/2019 9:58 AM QUALITY CONTROL ASSOCIATE Associated Problem(s): Generalized abdominal pain Resolved ITY CONTROL ASSOCIATE * Assessment & Plan Note - Art Watts II, DO - 09/20/2019 9:57 AM QUALITY CONTROL ASSOCIATE Associated Problem(s): Ureteral calculus, left S/P left ureteral stent placement on 08/30 without improvement, cystoscopy with st ent removal and lithotripsy 09/21 Urology recommends follow-up in 1 to 2 weeks Detrol LA pyridium ITY CONTROL ASSOCIATE * End of Shift Note - Sunny Boyer, ADAM - 09/20/2019 5:37 AM QUALITY CONTROL ASSOCIATE End of Shift Summary and Plan of [...] strain all urine, pain meds as needed ITY CONTROL ASSOCIATE * End of Shift Note - Arabella Mccormick, ADAM - 09/19/2019 6:06 PM QUALITY CONTROL ASSOCIATE End of Shift Summary and Plan of [...] oral temp, BP 170/90, CT delayed and FIELD STAFF MANAGER aware. CT called at 1800 to send [...] strain all urine, pain meds as needed ITY CONTROL ASSOCIATE * Significant Event - Hope Cox APRN - 09/19/2019 3:40 PM QUALITY CONTROL ASSOCIATE [facility] Hospitalist - Significant Event Patient Name: Isiah Benítez Account No: [id number] Date of : 1950 Date of Admission: [...] results (as indicated), current inpatient medications and support teacher notes with pertainent findings noted within the assessment/plan. I have personally sp stephen with the patient, another physican and nursing staff regarding this patient 's case. Room: [address] [place] [address] Diet: Diet-Consistent Carbohydrate (75 gm) Code Status: Full Code Hope Cox APRN [facility] . ITY CONTROL ASSOCIATE * Assessment & Plan Note - Hope Cox APRN - 09/19/2019 12:17 PM QUALITY CONTROL ASSOCIATE Associated Problem(s): Morbid obesity due to excess calories (HCC) Complicates all aspects of care Strongly recommend dietary changes, lifestyle changes and weight loss ITY CONTROL ASSOCIATE * Assessment & Plan Note - Hope Cox APRN - 09/19/2019 12:17 PM QUALITY CONTROL ASSOCIATE Associated Problem(s): Chronic respiratory failure (HCC) On chronic O2 prn Monitor Titrate O2 as needed for goal sat >90% ITY CONTROL ASSOCIATE * Assessment & Plan Note - Hope Cox APRN - 09/19/2019 12:16 PM QUALITY CONTROL ASSOCIATE Associated Problem(s): Type 2 diabetes mellitus with hyperglycemia, with long-te rm current use of insulin (HCC) Last A1c 11.0 in May 2019 BG trends 200-300s Increase Lantus to 25 units nightly Monitor BG ac&hs Increase SSI to level 4 Hypoglycemia protocol, CC diet ITY CONTROL ASSOCIATE * Assessment & Plan Note - Hope Cox APRN - 09/19/2019 12:16 PM QUALITY CONTROL ASSOCIATE Associated Problem(s): SASHA on CPAP Compliant with CPAP at home Continue home CPAP regimen ITY CONTROL ASSOCIATE * Assessment & Plan Note - Hope Cox APRN - 09/19/2019 12:15 PM QUALITY CONTROL ASSOCIATE Associated Problem(s): Essential hypertension Systolic (24hrs), Av , Min:129 , Max:145 Continue Metoprolol Resume home dose HCTZ daily Monitor trends ITY CONTROL ASSOCIATE * Assessment & Plan Note - Hope Cox APRN - 09/19/2019 12:13 PM QUALITY CONTROL ASSOCIATE Associated Problem(s): COPD (chronic obstructive pulmonary disease) (HCC) Stable. No s/s of acute exacerbation On O2 as needed EXECUTIVE ACCOUNT MANAGER Reports that she was on a Prednisone taper EXECUTIVE ACCOUNT MANAGER and had 4 more days of 20mg Continue Breo and Duonebs per home regimen Titrate O2 to maintain goal O2 sat >90% Resume Prednisone 20mg daily x4 days ITY CONTROL ASSOCIATE * Assessment & Plan Note - Hope Cox APRN - 09/19/2019 12:12 PM QUALITY CONTROL ASSOCIATE Associated Problem(s): Suspected UTI Patient was recently treated for a [place] UTI. 09/17 UA with +LEUs and WBCs >40, no bacteria; UCx with mixed ciera Continue IV Ceftriaxone for now Repeat UA reflex ITY CONTROL ASSOCIATE * Assessment & Plan Note - Hope Cox APRN - 09/19/2019 12:11 PM QUALITY CONTROL ASSOCIATE Associated Problem(s): Generalized abdominal pain Patient reports generalized abdominal pain but this is worse in the left lower q uadrant. CT abdomen showed left-sided ureteral calculus. S/p ureteral stent on 08/30 See above plan for ureteral calculus Pain control with PO Percocet and IV Morphine ITY CONTROL ASSOCIATE * Assessment & Plan Note - Hope Cox APRN - 09/19/2019 12:11 PM QUALITY CONTROL ASSOCIATE Associated Problem(s): Ureteral calculus, left CT abdomen showed left ureteral stent and calculus. S/p left ureteral stent placement on 08/30 Urology following, appreciate assist Continue tolterodine Continue PRN PO Percocet and IV Morphine PRN Levsin and Pyridium Plans for possible ureteroscopy with laser lithotripsy and stent exchange ITY CONTROL ASSOCIATE * End of Shift Note - Lizzie Hickey RN - 09/19/2019 2:24 AM QUALITY CONTROL ASSOCIATE End of Shift Summary and Plan of [...] strain all urine, pain meds as needed ITY CONTROL ASSOCIATE * End of Shift Note - Tania Moscoso RN - 09/18/2019 5:14 PM QUALITY CONTROL ASSOCIATE End of Shift Summary and Plan of [...] strain all urine, pain meds as needed ITY CONTROL ASSOCIATE * Care Progression Initial Assessment - Fiorella Diana RN - 09/18/2019 5:00 PM QUALITY CONTROL ASSOCIATE Care Progression Initial Assessment Note Additional information: patient readmission from 09/07/2019. Assessment unchanged from last admit. PCP, pharmacy, insurance, demographics verified as unchanged. Patient is current with [facility]. She has the support of her daughter whom she live s with currently. Denies any needs at home. Would like to resume home care servi sudeep with [facility]. Referral sent. CC will continue to follow for discharge planning. Referral to see patient was placed by Referral Source: Care Progression Referral Name: Fiorella MALIK RN Medical Historian, Referral Reason: Initial As sessment, Discharge planning, [...] Type of Healthcare Directive: Durable power of employment law attorney for health care Copy requested from [...] MD and recei ves their medications from [id number] [place] AT [facility] [address] [place] [facility] [id number] ITY CONTROL ASSOCIATE * Assessment & Plan Note - Hope Cox APRN - 09/18/2019 1:34 PM QUALITY CONTROL ASSOCIATE Associated Problem(s): Chronic respiratory failure (HCC) On chronic O2 prn Monitor Titrate O2 as needed for goal sat >90% ITY CONTROL ASSOCIATE * End of Shift Note - Lizzie Hickey RN - 09/18/2019 5:11 AM QUALITY CONTROL ASSOCIATE End of Shift Summary and Plan of [...] strain all urine, pain meds as needed ITY CONTROL ASSOCIATE * End of Shift Note - Jaclyn Boston RN - 09/17/2019 5:58 PM QUALITY CONTROL ASSOCIATE End of Shift Summary and Plan of [...] strain all urine, pain meds as needed ITY CONTROL ASSOCIATE * Assessment & Plan Note - Hope Cox APRN - 09/17/2019 12:48 PM QUALITY CONTROL ASSOCIATE Associated Problem(s): Suspected UTI Patient was recently treated for a [place] UTI. UA with +LEUs and WBCs >40, no bacteria Continue IV Ceftriaxone for now Follow blood and urine cultures ITY CONTROL ASSOCIATE * Assessment & Plan Note - Hope Cox APRN - 09/17/2019 12:47 PM QUALITY CONTROL ASSOCIATE Associated Problem(s): Ureteral calculus, left CT abdomen showed left ureteral stent and calculus. S/p left ureteral stent placement on 08/30 Urology following, appreciate assist Continue tolterodine DC IV fentanyl Add Percocet 1-2 tabs Q6 PRN IV Morphine Q4 for breakthrough pain PRN Levsin and Pyridium ITY CONTROL ASSOCIATE * Assessment & Plan Note - Hope Cox APRN - 09/17/2019 12:46 PM QUALITY CONTROL ASSOCIATE Associated Problem(s): Type 2 diabetes mellitus with hyperglycemia, with long-te rm current use of insulin (HCC) Last A1c 11.0 in May 2019 BG trends 200s Increase Lantus to 22 Units nightly Monitor BG ac&hs SSI level 2 Hypoglycemia protocol, CC diet ITY CONTROL ASSOCIATE * Assessment & Plan Note - Hope Cox APRN - 09/17/2019 12:46 PM QUALITY CONTROL ASSOCIATE Associated Problem(s): SASHA on CPAP Compliant with CPAP at home Continue home CPAP regimen ITY CONTROL ASSOCIATE * Assessment & Plan Note - Hope Cox APRN - 09/17/2019 12:46 PM QUALITY CONTROL ASSOCIATE Associated Problem(s): Morbid obesity due to excess calories (HCC) Complicates all aspects of care Strongly recommend dietary changes, lifestyle changes and weight loss ITY CONTROL ASSOCIATE * Assessment & Plan Note - Hope Cox APRN - 09/17/2019 12:45 PM QUALITY CONTROL ASSOCIATE Associated Problem(s): Generalized abdominal pain Patient reports generalized abdominal pain but this is worse in the left lower q uadrant. CT abdomen showed left-sided ureteral calculus. S/p ureteral stent on 08/30 See above plan for ureteral calculus Pain control with PO Percocet and IV Morphine ITY CONTROL ASSOCIATE * Assessment & Plan Note - Hope Cox APRN - 09/17/2019 12:45 PM QUALITY CONTROL ASSOCIATE Associated Problem(s): Essential hypertension Systolic (24hrs), Av , Min:110 , Max:148 Continue Metoprolol Hold HCTZ for now until taking adequate PO Monitor trends ITY CONTROL ASSOCIATE * Assessment & Plan Note - Hope Cox APRN - 09/17/2019 12:44 PM QUALITY CONTROL ASSOCIATE Associated Problem(s): COPD (chronic obstructive pulmonary disease) (HCC) Stable. No s/s of acute exacerbation On O2 as needed EXECUTIVE ACCOUNT MANAGER Continue Breo and Duonebs per home regimen Titrate O2 to maintain goal O2 sat >90% ITY CONTROL ASSOCIATE * Hospital Course - [facility], FIELD STAFF MANAGER - 09/17/2019 12:44 PM QUALITY CONTROL ASSOCIATE Ms. Isiah Benítez is a 69 y.o. [...] on 09/22, plans to discharge on 09/23 ITY CONTROL ASSOCIATE documented in this encounter Plan of Treatment Order Schedule Name Type Priority Associated Diag noses 1 Occurrences starting 09/23/2019 until 03/23/2020 Ambulatory referral to Outpatient Routine Pyelone phritis Home Health Referral documented as of this encounter Procedures Comments Procedure Name Priority Date/Time Associated Diag nosis GLUCOSE POC Routine 09/23/2019 12:11 PM QUALITY CONTROL ASSOCIATE GLUCOSE POC Routine 09/23/2019 8:09 AM QUALITY CONTROL ASSOCIATE CBC AND DIFF (MANUAL DIFF Routine 09/23/2019 IF NECESSARY) 3:03 AM QUALITY CONTROL ASSOCIATE BASIC METABOLIC PANEL Routine 09/23/2019 3:03 AM QUALITY CONTROL ASSOCIATE GLUCOSE POC Routine 09/22/2019 11:39 PM QUALITY CONTROL ASSOCIATE GLUCOSE POC Routine 09/22/2019 7:36 PM QUALITY CONTROL ASSOCIATE GLUCOSE POC Routine 09/22/2019 4:31 PM QUALITY CONTROL ASSOCIATE GLUCOSE POC Routine 09/22/2019 12:16 PM QUALITY CONTROL ASSOCIATE GLUCOSE POC Routine 09/22/2019 7:54 AM QUALITY CONTROL ASSOCIATE GLUCOSE POC Routine 09/22/2019 5:03 AM QUALITY CONTROL ASSOCIATE GLUCOSE POC Routine 09/22/2019 12:22 AM QUALITY CONTROL ASSOCIATE GLUCOSE POC Routine 09/21/2019 10:24 PM QUALITY CONTROL ASSOCIATE GLUCOSE POC Routine 09/21/2019 7:16 PM QUALITY CONTROL ASSOCIATE GLUCOSE POC Routine 09/21/2019 4:53 PM QUALITY CONTROL ASSOCIATE PULSE OXIMETRY, Routine 09/21/2019 CONTINUOUS 4:10 PM QUALITY CONTROL ASSOCIATE GLUCOSE POC Routine 09/21/2019 3:05 PM QUALITY CONTROL ASSOCIATE FL RETROGRADE UROGRAPHY Routine 09/21/2019 IN OR 2:52 PM QUALITY CONTROL ASSOCIATE STONE ANALYSIS Timed 09/21/2019 2:33 PM QUALITY CONTROL ASSOCIATE CYSTOSCOPY, RETROGRADE 09/21/2019 N20.1 PYELOGRAM, URETEROSCOPY, 2:01 PM QUALITY CONTROL ASSOCIATE LASER LITHOTRIPSY, WITH URETERAL STENT PLACEMENT Special Needs ROOM [id number] ORDERING HOMIUM LASER jtBIOMED NOTIFIED REMOVAL, STENT, URETER, 09/21/2019 N20.1 CYSTOSCOPIC 2:01 PM QUALITY CONTROL ASSOCIATE Special Needs ROOM 4043LINDA ORDERING HOMIUM LASER jtBIOMED NOTIFIED GLUCOSE POC Routine 09/21/2019 11:34 AM QUALITY CONTROL ASSOCIATE GLUCOSE POC Routine 09/21/2019 7:40 AM QUALITY CONTROL ASSOCIATE TRIIODOTHYRONINE Add-On 09/21/2019 3:43 AM QUALITY CONTROL ASSOCIATE THYROID CASCADE Add-On 09/21/2019 3:43 AM QUALITY CONTROL ASSOCIATE T4 FREE Add-On 09/21/2019 3:43 AM QUALITY CONTROL ASSOCIATE HEMOGLOBIN A1C Add-On 09/21/2019 3:43 AM QUALITY CONTROL ASSOCIATE COMPREHENSIVE METABOLIC Routine 09/21/2019 PANEL 3:43 AM QUALITY CONTROL ASSOCIATE CBC AND DIFF (MANUAL DIFF Routine 09/21/2019 IF NECESSARY) 3:43 AM QUALITY CONTROL ASSOCIATE GLUCOSE POC Routine 09/20/2019 11:58 PM QUALITY CONTROL ASSOCIATE GLUCOSE POC Routine 09/20/2019 8:23 PM QUALITY CONTROL ASSOCIATE GLUCOSE POC Routine 09/20/2019 5:01 PM QUALITY CONTROL ASSOCIATE GLUCOSE POC Routine 09/20/2019 11:20 AM QUALITY CONTROL ASSOCIATE GLUCOSE POC Routine 09/20/2019 7:35 AM QUALITY CONTROL ASSOCIATE US ABDOMEN LIMITED Routine 09/20/2019 6:07 AM QUALITY CONTROL ASSOCIATE GLUCOSE POC Routine 09/20/2019 4:06 AM QUALITY CONTROL ASSOCIATE LACTATE VENOUS WB Timed 09/20/2019 2:19 AM QUALITY CONTROL ASSOCIATE COMPREHENSIVE METABOLIC Routine 09/20/2019 PANEL 2:19 AM QUALITY CONTROL ASSOCIATE CBC AND DIFF (MANUAL DIFF Routine 09/20/2019 IF NECESSARY) 2:19 AM QUALITY CONTROL ASSOCIATE GLUCOSE POC Routine 09/20/2019 12:03 AM QUALITY CONTROL ASSOCIATE TROPONIN Timed 09/19/2019 11:12 PM QUALITY CONTROL ASSOCIATE LACTATE VENOUS WB Timed 09/19/2019 11:12 PM QUALITY CONTROL ASSOCIATE GLUCOSE POC Routine 09/19/2019 10:26 PM QUALITY CONTROL ASSOCIATE XR CHEST 2 VIEWS (PA AND Routine 09/19/2019 LATERAL) 9:19 [address] QUALITY CONTROL ASS[address] CT HEAD WO CONTRAST STAT 09/19/2019 9:12 PM QUALITY CONTROL ASSOCIATE TROPONIN Timed 09/19/2019 8:15 PM QUALITY CONTROL ASSOCIATE LACTATE VENOUS WB Timed 09/19/2019 8:15 PM QUALITY CONTROL ASSOCIATE GLUCOSE POC Routine 09/19/2019 7:45 PM QUALITY CONTROL ASSOCIATE GLUCOSE POC Routine 09/19/2019 5:09 PM QUALITY CONTROL ASSOCIATE CULTURE, BLOOD Timed 09/19/2019 4:56 PM QUALITY CONTROL ASSOCIATE CULTURE, BLOOD Timed 09/19/2019 4:53 PM QUALITY CONTROL ASSOCIATE TROPONIN STAT 09/19/2019 4:53 PM QUALITY CONTROL ASSOCIATE LIPASE Add-On 09/19/2019 4:53 PM QUALITY CONTROL ASSOCIATE LACTATE VENOUS WB Routine 09/19/2019 4:53 PM QUALITY CONTROL ASSOCIATE COMPREHENSIVE METABOLIC STAT 09/19/2019 PANEL 4:53 PM QUALITY CONTROL ASSOCIATE COMPLETE BLOOD COUNT STAT 09/19/2019 4:53 PM QUALITY CONTROL ASSOCIATE GLUCOSE POC Routine 09/19/2019 4:35 PM QUALITY CONTROL ASSOCIATE ECG Routine 09/19/2019 3:45 PM QUALITY CONTROL ASSOCIATE GLUCOSE POC Routine 09/19/2019 3:23 PM QUALITY CONTROL ASSOCIATE GLUCOSE POC Routine 09/19/2019 11:48 AM QUALITY CONTROL ASSOCIATE URINALYSIS MICROSCOPIC Routine 09/19/2019 ONLY 11:35 AM QUALITY CONTROL ASSOCIATE URINALYSIS REFLEX Routine 09/19/2019 11:35 AM QUALITY CONTROL ASSOCIATE CULTURE, URINE Routine 09/19/2019 11:35 AM QUALITY CONTROL ASSOCIATE GLUCOSE POC Routine 09/19/2019 7:43 AM QUALITY CONTROL ASSOCIATE GLUCOSE POC Routine 09/19/2019 3:40 AM QUALITY CONTROL ASSOCIATE GLUCOSE POC Routine 09/18/2019 11:31 PM QUALITY CONTROL ASSOCIATE GLUCOSE POC Routine 09/18/2019 9:03 PM QUALITY CONTROL ASSOCIATE GLUCOSE POC Routine 09/18/2019 5:14 PM QUALITY CONTROL ASSOCIATE GLUCOSE POC Routine 09/18/2019 12:16 PM QUALITY CONTROL ASSOCIATE CBC AND DIFF (MANUAL DIFF Routine 09/18/2019 IF NECESSARY) 9:49 AM QUALITY CONTROL ASSOCIATE GLUCOSE POC Routine 09/18/2019 8:41 AM QUALITY CONTROL ASSOCIATE BASIC METABOLIC PANEL Routine 09/18/2019 8:06 AM QUALITY CONTROL ASSOCIATE GLUCOSE POC Routine 09/18/2019 4:07 AM QUALITY CONTROL ASSOCIATE GLUCOSE POC Routine 09/18/2019 12:04 AM QUALITY CONTROL ASSOCIATE LACTATE VENOUS WB Timed 09/17/2019 10:39 PM QUALITY CONTROL ASSOCIATE GLUCOSE POC Routine 09/17/2019 7:58 PM QUALITY CONTROL ASSOCIATE LACTATE VENOUS WB Timed 09/17/2019 7:24 PM QUALITY CONTROL ASSOCIATE GLUCOSE POC Routine 09/17/2019 5:10 PM QUALITY CONTROL ASSOCIATE TROPONIN Timed 09/17/2019 3:47 PM QUALITY CONTROL ASSOCIATE LACTATE VENOUS WB Timed 09/17/2019 3:47 PM QUALITY CONTROL ASSOCIATE CULTURE, BLOOD STAT 09/17/2019 1:02 PM QUALITY CONTROL ASSOCIATE CULTURE, BLOOD STAT 09/17/2019 12:38 PM QUALITY CONTROL ASSOCIATE TROPONIN STAT 09/17/2019 12:38 PM QUALITY CONTROL ASSOCIATE LACTATE VENOUS WB STAT 09/17/2019 12:38 PM QUALITY CONTROL ASSOCIATE URINALYSIS MICROSCOPIC STAT 09/17/2019 ONLY 10:05 AM QUALITY CONTROL ASSOCIATE URINALYSIS REFLEX STAT 09/17/2019 10:05 AM QUALITY CONTROL ASSOCIATE CULTURE, URINE STAT 09/17/2019 10:05 [address]OL [address] ABDOMEN PELVIS W STAT 09/17/2019 CONTRAST 8:59 AM QUALITY CONTROL ASSOCIATE TROPONIN STAT 09/17/2019 8:38 AM QUALITY CONTROL ASSOCIATE LIPASE STAT 09/17/2019 8:38 AM QUALITY CONTROL ASSOCIATE COMPREHENSIVE METABOLIC STAT 09/17/2019 PANEL 8:38 AM QUALITY CONTROL ASSOCIATE CBC AND DIFF (MANUAL DIFF STAT 09/17/2019 IF NECESSARY) 8:38 AM QUALITY CONTROL ASSOCIATE XR CHEST SINGLE VIEW STAT 09/17/2019 FRONTAL 7:58 AM QUALITY CONTROL ASSOCIATE ECG STAT 09/17/2019 7:44 AM QUALITY CONTROL ASSOCIATE PULSE OXIMETRY, STAT 09/17/2019 CONTINUOUS 7:43 AM QUALITY CONTROL ASSOCIATE documented in this encounter Results * GLUCOSE POC (09/23/2019 12:11 PM QUALITY CONTROL ASSOCIATE) Only the most recent of 39 results within the time period is included. Glucose POC 166 (H) 70 - 100 mg/dL [facility] Specimen Performing Organization Address City/State/Zipcode Ph one Number [facility] [address] [place] [facility] [place] [id number] [facility] [address] [place] [address], [facility] * Basic Metabolic Panel (09/23/2019 3:03 AM QUALITY CONTROL ASSOCIATE) Only the most recent of 2 results within the time period is included. Pathologist [facility] Sodium 135 133 - 147 MEQ/L [facility] Potassium 3.7 3.5 - 5.3 MEQ/L [facility] Chloride 94 (L) 96 - 112 MEQ/L [facility] Carbon Dioxide 36 (H) 20 - 32 MEQ/L [facility] Anion Gap 5 5 - 17 [facility] Calcium 9.0 8.4 - 10.5 mg/dL [facility] Glucose 146 (H) 70 - 100 mg/dL [facility] Blood Urea 30 (H) 7 - 26 mg/dL [facility] Nitrogen [facility] Creatinine 0.7 0.4 - 1.1 mg/dL [facility] eGFR Female AA 100 60 - 200 [facility] mL/min/1.73sq m [facility] eGFR Female 83 60 - 200 [facility] Non-AA mL/min/1.73sq Cedric Israels [facility] Specimen Blood Performing Organization Address City/State/Zipcode Ph one Number [facility] [address] [place] [facility] [place] [id number] [facility] [facility] [place] [address] [facility] * CBC and Diff (manual diff if necessary) (09/23/2019 3:03 AM QUALITY CONTROL ASSOCIATE) Only the most recent of 5 results within the time period is included. [facility] Signature WBC 8.80 4.00 - 11.00 TH/uL [facility] RBC 3.48 (L) 4.00 - 5.00 MIL/uL [facility] Hemoglobin 11.3 (L) 12.0 - 15.0 g/dL [facility] Hematocrit 35 (L) 36 - 45 % [facility] MCV 99 80 - 99 fL [facility] MCH 33 27 - 34 pg [facility] MCHC 33 32 - 36 % [facility] RDW 13.6 11.5 - 14.5 % [facility] Platelet Count 172 140 - 400 TH/uL [facility] MPV 10.0 9.4 - 12.3 fL [facility] Nucleated RBCs 0 0 - 0 /100 [facility] % Neutrophils 54 45 - 78 % [facility] %Lymphocytes 34 15 - 47 % [facility] %Monocytes 10 0 - 12 % [facility] %Eosinophils 2 0 - 7 % [facility] %Basophils 0 0 - 2 % [facility] % Imm Grans 0 0 - 1 % [facility] # Granulocytes 4.77 1.7 - 6.8 TH/uL [facility] # Lymphocytes 2.95 1.0 - 3.3 TH/uL [facility] # Monocytes 0.88 0.2 - 0.9 TH/uL [facility] # Eosinophils 0.16 0.0 - 0.4 TH/uL [facility] # Basophils 0.01 0.0 - 0.1 TH/uL [facility] Specimen Blood Performing Organization Address City/State/Zipcode Ph one Number [facility] [address] [place] [address] [facility] [address] [facility] [address] [place] [address] [facility] * FL Retrograde Urography in OR (09/21/2019 2:52 PM QUALITY CONTROL ASSOCIATE) Specimen Impressions Performed At Fluoroscopic support for the Urology services. Becky teresa see operative LEVI report for details. READING SITE: [facility] Ma[facility] [place] Narrative Performed At Patient: ISIAH BENÍTEZ Sex#: F #: 1950 Jose #: [id number] Location: SLE MAIN OR NONE Procedure Requested: [id number] FL RETRO GRADE UROGRAPHY IN OR Reason [...] Rad Results In - 09/21/2019 3:21 PM QUALITY CONTROL ASSOCIATE Patient: ISIAH BENÍTEZ Sex#: F #: 1950 Jose#: [id number] Location: SLE MAIN OR NONE Procedure Requested: [id number] FL RETROGRADE UROGRAPHY IN OR Reason for [...] see operative report for details. READING SITE: [facility] Performing Organization Address [facility] one Number LEVI * Stone Analysis (09/21/2019 2:33 PM QUALITY CONTROL ASSOCIATE) Stone Color Brown [facility] Stone Size [id number]: Specimen received mm [facility] as fragments. Stone Weight 61.4 mg [facility] Stone CommentComment: Percentage [facility] Composition (Represents the % compositi on) Stone Ca 10 % [facility] oxalate dihydrate Stone Ca 90 % [facility] oxalate monohydr Stone Comment Comment [facility] Comment: Calculi report will follow via computer, mail or pad assembler delivery. Stone Comment Comment [facility] Comment: Physician questions regarding Calculi Analysis contact [facility] at: [phone]. Disclaimer : Comment [facility] Comment: This test was developed and its performance characteristics determined by [facility]. It has not been cleared or approved by the Food and Drug Administration. Test performed at [facility] Stone Analysis [address] [place] [address] [place] [address] Source CommentComment: Left Ureter [facility] Specimen Stone - Left Ureter Performing Organization Address [facility] one Number [facility] [address] [place], [place] [address] [facility] Interface [id number] [place] [address] [place] [address] * Triiodothyronine (09/21/2019 3:43 AM QUALITY CONTROL ASSOCIATE) Triiodothyronin 0.8 (L) 1.0 - 1.7 ng/mL [facility] Lab Specimen Blood Performing Organization Address [facility] Ph one Number [facility] [address] [place] [address] LABORATORIES [facility] [address] [place] [address] * T4 Free (09/21/2019 3:43 AM QUALITY CONTROL ASSOCIATE) T4 Free 1.0 0.8 - 2.2 ng/dL [facility] Specimen Blood Performing Organization Address [facility] one Number [facility] [address], [place] [id number] [facility] [place] [facility] [facility] [address] [place] [address] [facility] * Thyroid [place] (09/21/2019 3:43 AM QUALITY CONTROL ASSOCIATE) Thyroid 0.37 (L) 0.47 - 4.68 uIU/mL [facility] bello Stimulating Cedric Mancusos Hormone [facility] Specimen Blood Performing Organization Address [facility] one Number [facility] [address] [place], [place] [id number] [facility] [address] [facility] [place] [address] [facility] * Hemoglobin A1C (09/21/2019 3:43 AM QUALITY CONTROL ASSOCIATE) Pathologist [facility] Hemoglobin A1C 12.4 (H) 4.0 - 5.6 % [facility] Comment: Hospital Lab Non-diabetic 4.0 - 5.6 % Prediabetes 5.7 - 6.4 % Diabetes >= 6.5 % Specimen Blood Performing Organization Address City/[facility] one Number [facility] [address] [place] [address] LABORATORIES [facility] [address] [place] [address] * Comprehensive Metabolic Panel (09/21/2019 3:43 AM QUALITY CONTROL ASSOCIATE) Only the most recent of 4 results within the time period is included. Sodium 136 133 - 147 MEQ/L [facility] Potassium 3.9 3.5 - 5.3 MEQ/L [facility] Chloride 96 96 - 112 MEQ/L [facility] Carbon Dioxide 36 (H) 20 - 32 MEQ/L [facility] Anion Gap 5 5 - 17 [facility] Calcium 10.0 8.4 - 10.5 mg/dL [facility] Glucose 107 (H) 70 - 100 mg/dL [facility] Protein Total 7.8 6.0 - 8.2 g/dL [facility] Serum [facility] Albumin 4.1 3.5 - 5.0 g/dL [facility] Alkaline 142 (H) 42 - 140 IU/L [facility] Phosphatase [facility] Alanine 94 (H) 0 - 34 IU/L [facility] Aminotransferas [facility] e [facility] Aspartate 36 15 - 46 IU/L [facility] Aminotransferas [facility] Bilirubin Total 0.4 0.2 - 1.3 mg/dL [facility] Blood Urea 26 7 - 26 mg/dL [facility] Nitrogen [facility] Creatinine 0.8 0.4 - 1.1 mg/dL [facility] eGFR Female AA 86 60 - 200 [facility] mL/min/1.73sq [facility] eGFR Female 72 60 - 200 [facility] Non-AA mL/min/1.73sq [facility] Specimen Blood Performing Organization Address City/State/Zipcode Ph one Number [facility] [address] [place] [place] [address] [facility] [address] [facility] [address] [facility] [place] [address] [facility] * US Abdomen limited (09/20/2019 6:07 AM QUALITY CONTROL ASSOCIATE) Specimen Impressions Performed At Impression: LEVI 1. Diffuse hepatic steatosis without fo rosalind hepatic lesion. 2. Cholecystectomy. ATTESTATION STATEMENT: The Staff Radiologist has personally re viewed this study and agrees with the findings in this report. READING SITE: [facility] Narrative Performed At Patient: ISIAH BENÍTEZ Sex#: F #: 1950 Jose #: [id number] Location: [facility] 4 PCU 1 4042-08 Access ion#: [id number] Procedure Requested: [id number] US ABDOM EN LIMITED Reason for Exam: [...] Rad Results In - 09/20/2019 7:38 AM QUALITY CONTROL ASSOCIATE Patient: ISIAH BENÍTEZ Sex#: F #: 1950 Jose#: [id number] Location: SLE 4 U 1 4042-08 Procedure Requested: [id number] US ABDOMEN LIMITED Reason for Exam: elevated [...] the findings in this report. READING SITE: [facility] Performing Organization Address [facility] one Number LEVI * Lactate Venous WB (09/20/2019 2:19 AM QUALITY CONTROL ASSOCIATE) Only the most recent of 8 results within the time period is included. Lactate Venous 1.8 0.0 - 2.0 mmol/L [facility] Specimen Blood Narrative Performed At Reflex sepsis screen >2.0 [facility] Performing Organization Address [facility] one [facility] [address] [place] [address] [facility] [address] [place] [address] [facility] [address] [place] [address], [facility] * Troponin - 3 and 6 hr (09/19/2019 11:12 PM QUALITY CONTROL ASSOCIATE) Only the most recent of 6 results within the time period is included. Troponin <0.01 0.00 - 0.03 ng/mL [facility] Comment: [facility] Troponin Value [facility] Interpretation 0.00 - 0.03 Healthy 0.04 - 0.12 Increased Cardiac Risk >0.12 Myocardial Infarction Troponin may not become elevated until 6 to 8 hours after onset of symptoms. Specimen Blood Performing Organization Address [facility] one Number [facility] [address] [place] [address] [facility] [address] [place] [place] [address] [facility] [place] [address] [facility] * XR Chest 2 views (PA and lateral) (09/19/2019 9:19 PM QUALITY CONTROL ASSOCIATE) Specimen Impressions Performed At 1. Bibasilar subsegmental atelectasis. LEVI READING SITE: [facility] Narrative Performed At Patient: ISIAH BENÍTEZ Sex#: F #: 1950 Jose #: [id number] Location: [place] [address] 4042-08 Access ion#: [id number] Procedure Requested: [id number] XR CHEST 2 VIEWS (PA AND LATERAL) [...] Rad Results In - 09/19/2019 9:54 PM QUALITY CONTROL ASSOCIATE Patient: ISIAH BENÍTEZ Sex#: F #: 1950 Jose#: [id number] Location: [place] [address] 4042-08 Procedure Requested: [id number] XR CHEST 2 VIEWS (PA AND LATERAL) [...] IMPRESSION 1. Bibasilar subsegmental atelectasis. READING SITE: [facility] Performing Organization Address City/State/Zipcode Ph one Number LEVI * CT Head wo contrast (09/19/2019 9:12 PM QUALITY CONTROL ASSOCIATE) Specimen Impressions Performed At Impression: LEVI No acute intracranial process. Mild cerebral volume loss. Mild chronic small vessel ischemic disease. The above findings are in general agree ment with those in the preliminary report provided by [employer]. READING SITE: [facility]. ATTESTATION STATEMENT: The Staff Radiol ogist has personally reviewed the images and dictated, reviewed, or edite d the final report. Narrative Performed At Patient: ISIAH BENÍTEZ Sex#: F #: 1950 Jose #: [id number] Location: [place] [address]- Access ion#: [id number] Procedure Requested: [id number] CT HEAD WO CONTRAST Reason for Exam: [...] The mastoid air cells are clear. The port captain topogram shows no lytic lesio n or fracture. Procedure Note Interface, Rad Results In - 09/20/2019 10:19 AM QUALITY CONTROL ASSOCIATE Patient: ISIAH BENÍTEZ Sex#: Paulina #: 1950 Jose#: [id number] Location: SLE 4 U 1 4043-01 Procedure Requested: [id number] CT HEAD WO CONTRAST Reason for Exam: [...] The mastoid air cells are clear. The port captain topogram shows no lytic lesion or fracture. IMPRESSION Impression: No acute intracranial process. Mild cerebral volume loss. Mild chronic small vessel ischemic disease. The above findings are in general agreement with those in the preliminary report provided by [employer]. READING SITE: [facility]. ATTESTATION STATEMENT: The Staff Radiologist has personally reviewed the images and dictated, reviewed, or edited the final report. Performing Organization Address City/State/Zipcode Ph one Number [facility] * Culture, Blood (09/19/2019 4:56 PM QUALITY CONTROL ASSOCIATE) Only the most recent of 4 results within the time period is included. Culture Result No Growth at 5 days [facility] Specimen Blood Narrative Performed At 3ml rfa [facility] Performing Organization Address City/[facility] Ph one Number [facility] [address] [place] [address] LABORATORIES [facility] [address] [place] [address] * Lipase (09/19/2019 4:53 PM QUALITY CONTROL ASSOCIATE) Only the most recent of 2 results within the time period is included. Lipase 143 23 - 300 IU/L [facility] Specimen Blood Performing Organization Address City/[facility] one Number [facility] [address] [place] [address] [facility] [address] [facility] [address] [facility] * Complete Blood Count (09/19/2019 4:53 PM QUALITY CONTROL ASSOCIATE) WBC 10.54 4.00 - 11.00 TH/uL [facility] RBC 4.33 4.00 - 5.00 MIL/uL [facility] Hemoglobin 14.0 12.0 - 15.0 g/dL [facility] Hematocrit 43 36 - 45 % [facility] MCV 99 80 - 99 fL [facility] MCH 32 27 - 34 pg [facility] MCHC 33 32 - 36 % [facility] RDW 13.1 11.5 - 14.5 % [facility] Platelet Count 197 140 - 400 TH/uL [facility] MPV 10.5 9.4 - 12.3 fL [facility] Nucleated RBCs 0 0 - 0 /100 [facility] Specimen Blood Performing Organization Address City/[facility] Ph one Number [phone] [address] [facility] [place] [address] [facility] [address] [facility] [address] [facility] * Electrocardiogram (ECG) (09/19/2019 3:45 PM QUALITY CONTROL ASSOCIATE) Only the most recent of 2 results within the time period is included. QRSd 108 TRACEMASTER QT 384 TRACEMASTER QTC 454 TRACEMASTER ECGHR 84 TRACEMASTER ECGPR 144 TRACEMASTER Specimen Narrative Performed At [facility] Eugenia [facility] Test Date: 2019-09-19 Pat Name: ISIAH BENÍTEZ Department: SP1 Room: [facility] Gender: Female Jitney Driver: [id number] : 1950 Requested By: HOPE COX Order Number: [id number] Reading MD: Louie Reyes Measurements Intervals [place] Rate: 84 P: 38 [place]: 144 QRS: 3 QRSD: 108 T: 24 QT: 384 QTc: 454 Interpretive Statements SINUS RHYTHM PROBABLE LEFT VENTRICULAR HYPERTROPHY Electronically Signed On 09-20-2019 10:3 7:02 QUALITY CONTROL ASSOCIATE by Louie Reyes Procedure Note Interface, External Ris In - 09/20/2019 10:37 AM QUALITY CONTROL ASSOCIATE [facility] Test Date: 2019-09-19 Pat Name: ISIAH BENÍTEZ Department: SP1 Room: 4043 Gender: Female Jitney Driver: [id number] : 1950 Requested By: HOPE COX Order Number: [id number] Reading MD: Louie Reyes Measurements Intervals [place] Rate: 84 P: 38 [place]: 144 QRS: 3 QRSD: 108 T: 24 QT: 384 QTc: 454 Interpretive Statements SINUS RHYTHM PROBABLE LEFT VENTRICULAR HYPERTROPHY Electronically Signed On 09-20-2019 10:37:02 QUALITY CONTROL ASSOCIATE by Louie Reyes Performing Organization Address City/State/Zipcode Ph one Number TRACEMASTER * Urinalysis Microscopic Only (09/19/2019 11:35 AM QUALITY CONTROL ASSOCIATE) Only the most recent of 2 results within the time period is included. Microscopic RBC >40 (A) 0 - 5 /hpf [facility] U[facility] Microscopic WBC 0-5 0 - 5 /hpf [facility] Urine [facility] Epithelial Absent Absent [facility] Cells [facility] Hyaline Cast Absent Absent [facility] Bacteria Absent Absent [facility] [place] Specimen Catheter Urine Performing Organization Address City/[facility] Ph one Number [facility] [address] [place] [address] [facility] [address] [place] [address] [facility] * Culture, Urine (09/19/2019 11:35 AM QUALITY CONTROL ASSOCIATE) Only the most recent of 2 results within the time period is included. Culture Result No growth [facility] Specimen Catheter Urine Performing Organization Address City/[facility] one Number [address] [address] LABORATORIES [facility] [address] [place] [address] * Urinalysis Reflex (09/19/2019 11:35 AM QUALITY CONTROL ASSOCIATE) Only the most recent of 2 results within the time period is included. Appearance, Yellow [facility] [place] Glucose Urine >=1000 (A) Negative mg/dL [facility] John[facility] Bilirubin Urine Negative Negative [facility] [place] Ketones Urine Negative Negative mg/dL [facility] [place] Specific 1.020 1.001 - 1.030 [facility] [place] [place] Hemoglobin Large (A) Negative [facility] [place] PH Urine 5.5 5.0 - 8.0 [facility] [place] Protein Urine 30 (A) Negative mg/dL [facility] Urobilinogen Negative Negative EU/dL [facility] Urine [facility] Nitrite Urine Negative Negative [facility] Leukocyte Negative Negative [facility] Esterase [facility] Specimen Catheter Urine Performing Organization Address City/State/Zipcode Ph one Number [facility] [address] [place] [address] [facility] [address] [facility] [place] [address] [facility] * CT Abdomen Pelvis w contrast (09/17/2019 8:59 AM QUALITY CONTROL ASSOCIATE) Specimen Impressions Performed At 1. Interval placement [...] biliary obstruction, if clinically warranted. READING SITE: [facility] ATTESTATION STATEMENT: The staff radiol ogist has personally reviewed the images and dictated, reviewed, or edite d the final report. Narrative Performed At Patient: ISIAH BENÍTEZ Sex#: F #: 1950 Jose #: [id number] Location: [facility] - Procedure Requested: [id number] CT ABDOM EN PELVIS W CONTRAST Reason [...] Rad Results In - 09/17/2019 9:54 AM QUALITY CONTROL ASSOCIATE Patient: ISIAH BENÍTEZ Sex#: Paulina #: 1950 Jose#: [id number] Location: [facility] ED SED-11 Procedure Requested: [id number] CT ABDOMEN PELVIS W CONTRAST Reason for [...] biliary obstruction, if clinically warranted. READING SITE: [facility] ATTESTATION STATEMENT: The staff radiologist has personally reviewed the images and dictated, reviewed, or edited the final report. Performing Organization Address City/State/Zipcode Ph one Number LEVI * XR Chest single view frontal (09/17/2019 7:58 AM QUALITY CONTROL ASSOCIATE) Specimen Impressions Performed At 1. No acute cardiopulmonary abnormality. LEVI 2. Low lung volumes. Mild atelectasis . READING SITE: [facility] Narrative Performed At Patient: ISIAH BENÍTEZ Sex#: F #: 1950 Jose #: [id number] Location: SLE ED SED-11 Procedure Requested: [id number] XR CHEST SINGLE VIEW FRONTAL Reason for [...] Rad Results In - 09/17/2019 8:14 AM QUALITY CONTROL ASSOCIATE Patient: ISIAH BENÍTEZ Sex#: F #: 1950 Jose#: [id number] Location: [facility] ED SED-11 Procedure Requested: [id number] XR CHEST SINGLE VIEW FRONTAL Reason for [...] Low lung volumes. Mild atelectasis. READING SITE: [facility] Address City/State/Zipcode one Edgar SIMS documented [...] Medication Order MAR Action 09/22/2019 8:23 PM QUALITY CONTROL ASSOCIATE 25 mg amitriptyline (ELAVIL) tablet 25 mg Given 25 mg, Oral, Nightly, First dose on 09/17/19 at 2100 25 mg Given 09/21/2019 8:13 PM QUALITY CONTROL ASSOCIATE 25 mg Given 09/20/2019 10:13 PM QUALITY CONTROL ASSOCIATE 09/22/2019 8:23 PM QUALITY CONTROL ASSOCIATE 40 mg atorvastatin (LIPITOR) tablet 40 mg Given 40 mg, Oral, Nightly, First dose on 09/17/19 at 2100 40 mg Given 09/21/2019 8:13 PM QUALITY CONTROL ASSOCIATE 40 mg Given 09/20/2019 10:13 PM QUALITY CONTROL ASSOCIATE 09/21/2019 8:16 AM QUALITY CONTROL ASSOCIATE 2 g cefTRIAXone (ROCEPHIN) injection 2 g Given 2 g, Intravenous, Daily, Indications: UTI, First dose on 09/17/19 at 1300, If giving IV push, reconstitute each vial with 20 ml sterile water and give over 3-5 minutes If sterile water is unavailable, may use Bacteriostatic Water or Normal Saline for reconstitution , 2 g Given 09/20/2019 9:03 AM QUALITY CONTROL ASSOCIATE 2 g Given 09/19/2019 8:17 AM QUALITY CONTROL ASSOCIATE 09/23/2019 8:23 AM QUALITY CONTROL ASSOCIATE 20 mg citalopram (CeleXA) tablet 20 mg Given 20 mg, Oral, Daily, First dose on 09/17/19 at 1240 20 mg Given 09/22/2019 8:50 AM QUALITY CONTROL ASSOCIATE 20 mg Given 09/20/2019 9:00 AM QUALITY CONTROL ASSOCIATE 09/17/2019 8:04 PM QUALITY CONTROL ASSOCIATE 10 mg cyclobenzaprine (FLEXERIL) tablet 10 mg [...] less than 70 mg/dL., 09/21/2019 1:52 PM QUALITY CONTROL ASSOCIATE 12.5 mg diphenhydrAMINE (BENADRYL) injection Given 12.5 mg 12.5 mg, Intravenous, Once, Ju 09/21/19 at 1415, For 1 dose, Pre-op 09/22/2019 10:31 AM QUALITY CONTROL ASSOCIATE 100 mg docusate sodium (COLACE) capsule 100 mg Given 100 mg, Oral, 2 times daily PRN, stool softening, Starting [place] 09/17/19 at 1238 , DO NOT CRUSH OR CHEW., 100 mg Given 09/20/2019 9:00 AM QUALITY CONTROL ASSOCIATE 100 mg Given 09/17/2019 5:47 PM QUALITY CONTROL ASSOCIATE 09/21/2019 1:52 PM QUALITY CONTROL ASSOCIATE 20 mg famotidine (PEPCID) injection 20 mg [...] or PO opiate therapy., 09/18/2019 9:04 AM QUALITY CONTROL ASSOCIATE 25 mcg fentaNYL (SUBLIMAZE) injection 25 mcg Given 25 mcg, Intravenous, Every 2 hours PRN, breakthrough pain, Starting [place] 09/17/19 at 1239, Administer over 2 minutes; max dose for IVP is 2 mcg/kg. Note: Limit does not apply to patients who may be tolerant to opioid therapy or on continuous IV or PO opiate therapy., 25 mcg Given 09/18/2019 3:57 AM QUALITY CONTROL ASSOCIATE 25 mcg Given 09/17/2019 7:58 PM QUALITY CONTROL ASSOCIATE 09/21/2019 3:14 PM QUALITY CONTROL ASSOCIATE 50 mcg fentaNYL (SUBLIMAZE) injection 25-50 mcg [...] dose has been reached., 09/17/2019 8:44 AM QUALITY CONTROL ASSOCIATE 50 mcg fentaNYL (SUBLIMAZE) injection 50 mcg Given 50 mcg, Intravenous, Once, [place] 09/17/19 at 0800, For 1 dose, Administer over 2 minutes; max dose for IVP is 2 mcg/kg. Note: Limit does not apply to patients who may be tolerant to opioid therapy o r on continuous IV or PO opiate therapy., 09/17/2019 9:41 AM QUALITY CONTROL ASSOCIATE 50 mcg fentaNYL (SUBLIMAZE) injection 50 mcg Given 50 mcg, Intravenous, Once, [place] 09/17/19 at 0941, For 1 dose, Administer over 2 minutes; max dose for IVP is 2 mcg/kg. Note: Limit does not apply to patients who may be tolerant to opioid therapy o r on continuous IV or PO opiate therapy., 09/23/2019 8:10 AM QUALITY CONTROL ASSOCIATE 1 puff fluticasone furoate-vilanterol (BREO Given ELLIPTA) 200-25 mcg/actuation inhaler 1 puff 1 puff, Inhalation, Daily, First dose o n [place] 09/17/19 at 1240, Rinse mouth with water after use if patient not on vent. 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 May give IM or SQ in arm and turn patient on side. Reconstitute powder for injection by adding 1 mL of sociology adjunct instructor-supplied sterile diluent or sterile water for injection [...] for injection by adding 1 mL of sociology adjunct instructor-supplied sterile diluent o r sterile water for [...] less than 70 mg/dL., 09/17/2019 1:12 PM QUALITY CONTROL ASSOCIATE 25 mg hydroCHLOROthiazide (HYDRODIURIL) tablet Given 25 mg 25 mg, Oral, Daily, First dose on 09/17/19 at 1240 09/23/2019 8:23 AM QUALITY CONTROL ASSOCIATE 25 mg hydroCHLOROthiazide (HYDRODIURIL) tablet Given 25 mg 25 mg, Oral, Daily, First dose on Wed09/20/19 at 0900 25 mg Given 09/22/2019 8:50 AM QUALITY CONTROL ASSOCIATE 25 mg Given 09/20/2019 9:00 AM QUALITY CONTROL ASSOCIATE 09/21/2019 8:13 PM QUALITY CONTROL ASSOCIATE 0.125 mg hyoscyamine (LEVSIN/SL) SL tablet 0.125 Given mg 0.125 mg, Sublingual, Every 4 hours PRN , bladder spasms, Starting Wed09/18/19 at 0905 0.125 mg Given 09/20/2019 2:37 PM QUALITY CONTROL ASSOCIATE 0.125 mg Given 09/18/2019 11:59 PM QUALITY CONTROL ASSOCIATE 09/17/2019 8:05 PM QUALITY CONTROL ASSOCIATE 20 Units Left Low er Abdomen insulin glargine (LANTUS) injection 20 Given Units 20 Units, Subcutaneous, Nightly, First dose on Wed09/17/19 at 209909/18/2019 9:15 PM QUALITY CONTROL ASSOCIATE 22 Units Left Arm insulin glargine (LANTUS) injection 22 Given Units 22 Units, Subcutaneous, Nightly, First dose (after last modification) on Wed09/18/19 at 209909/22/2019 9:31 PM QUALITY CONTROL ASSOCIATE 25 Units Left Low er Abdomen insulin glargine (LANTUS) injection 25 Given Units 25 Units, Subcutaneous, Nightly, First dose (after last modification) on Wed09/19/19 at 2100 25 Units Left Lower Abdomen Given 09/21/2019 8:14 PM QUALITY CONTROL ASSOCIATE 25 Units Right Lower Abdomen Given 09/20/2019 9:00 PM QUALITY CONTROL ASSOCIATE 09/18/2019 9:15 PM QUALITY CONTROL ASSOCIATE 3 Units Left Arm insulin lispro (HumaLOG) [...] Units Right Arm Given 09/18/2019 5:39 PM QUALITY CONTROL ASSOCIATE 3 Units Left Arm Given 09/18/2019 12:43 PM QUALITY CONTROL ASSOCIATE 09/19/2019 5:34 PM QUALITY CONTROL ASSOCIATE 4 Units Left Arm insulin lispro (HumaLOG) [...] Units Left Arm Given 09/19/2019 12:19 PM QUALITY CONTROL ASSOCIATE 09/19/2019 8:17 AM QUALITY CONTROL ASSOCIATE 5 Units Right Lo wer Abdomen insulin [...] - dose per table, 09/23/2019 12:39 PM QUALITY CONTROL ASSOCIATE 3 Units Right Lo wer Abdomen insulin [...] Left Lower Abdomen Given 09/22/2019 9:31 PM QUALITY CONTROL ASSOCIATE 15 Units Left Lower Abdomen Given 09/22/2019 4:41 PM QUALITY CONTROL ASSOCIATE 09/17/2019 10:15 AM QUALITY CONTROL ASSOCIATE 5 Units Right Ar m insulin regular (HumuLIN R) injection 5 Given Units 5 Units, Subcutaneous, Once, Sun 0 at 0945, For 1 dose 09/17/2019 9:01 AM QUALITY CONTROL ASSOCIATE 91 mL iohexol (OMNIPAQUE) 350 mg iodine/mL Given injection 91 mL 91 mL, Intravenous, Once in imaging, contrast, Starting 09/17/19 at 0900, For 1 dose 09/21/2019 1:52 PM QUALITY CONTROL ASSOCIATE 50 mL/hr 50 mL/hr lactated ringers infusion New Bag 50 mL/hr, Intravenous, Continuous, Starting Ju 09/21/19 at 1415, Pre-op 09/21/2019 10:16 PM QUALITY CONTROL ASSOCIATE 3 mg melatonin tablet 3 mg Given 3 mg, Oral, Nightly PRN, sleep, Startin g 09/17/19 at 1238, Give 3-4 hours prior to planned bedtime., 3 mg Given 09/20/2019 10:13 PM QUALITY CONTROL ASSOCIATE 3 mg Given 09/19/2019 8:22 PM QUALITY CONTROL ASSOCIATE 09/23/2019 8:23 AM QUALITY CONTROL ASSOCIATE 100 mg metoprolol tartrate (LOPRESSOR) tablet Given 100 mg 100 mg, Oral, 2 times daily, First dose on 09/17/19 at 1315, Hold for SBP <100, HR <55, 100 mg Given 09/22/2019 8:23 PM QUALITY CONTROL ASSOCIATE 100 mg Given 09/22/2019 8:49 AM QUALITY CONTROL ASSOCIATE 09/22/2019 4:45 AM QUALITY CONTROL ASSOCIATE 4 mg morphine 4 mg/mL injection 4 [...] therapy., 4 mg Given 09/21/2019 10:15 PM QUALITY CONTROL ASSOCIATE 4 mg Given 09/21/2019 6:33 PM QUALITY CONTROL ASSOCIATE 09/21/2019 1:45 PM QUALITY CONTROL ASSOCIATE 4 mg morphine 4 mg/mL injection 4 mg Given 4 mg, Intravenous, Once, Ju 09/21/19 at 1400, For 1 dose, Pre-op, Administer over 5 min; max dose of IVP is 10 mg. Note: Limit does not apply to patients who may be tolerant to opioid therapy o r on continuous IV or PO opiate therapy., 09/17/2019 12:31 PM QUALITY CONTROL ASSOCIATE 1 tablet oxyCODONE-acetaminophen (PERCOCET) 5-325 Given mg 1 tablet 1 tablet, Oral, Once, 09/17/19 at 1216, For 1 dose, Do not exceed 4 GM/DA Y of acetaminophen. If 65 or older do no t exceed 3 GM/DAY. If chronic alcoholic d o not exceed 2 GM/DAY., 09/23/2019 8:23 AM QUALITY CONTROL ASSOCIATE 2 tablets oxyCODONE-acetaminophen (PERCOCET) 5-325 Given mg 1-2 tablet 1-2 tablet, Oral, Every 6 hours PRN, moderate pain (pain score 4-6), severe pain (pain score 7-10), Starting 09/18/19 at 1139, Do not exceed 4 GM/DAY of acetaminophen. If 65 or older do no t exceed 3 GM/DAY. If chronic alcoholic d o not exceed 2 GM/DAY., 2 tablets Given 09/23/2019 2:00 AM QUALITY CONTROL ASSOCIATE 2 tablets Given 09/22/2019 7:48 PM QUALITY CONTROL ASSOCIATE 09/22/2019 10:31 AM QUALITY CONTROL ASSOCIATE 100 mg phenazopyridine (PYRIDIUM) tablet 100 mg [...] through a central line., 09/22/2019 8:50 AM QUALITY CONTROL ASSOCIATE 20 mg predniSONE (DELTASONE) tablet 20 mg Given 20 mg, Oral, Daily, First dose on 09/19/19 at 1230, For 4 doses, Give with food to reduce GI upset, 20 mg Given 09/20/2019 9:00 AM QUALITY CONTROL ASSOCIATE 20 mg Given 09/19/2019 12:19 PM QUALITY CONTROL ASSOCIATE 09/17/2019 1:12 PM QUALITY CONTROL ASSOCIATE 5 mg prochlorperazine (COMPAZINE) injection Given 2.5-5 [...] and refuses IM injection., 09/17/2019 8:44 AM QUALITY CONTROL ASSOCIATE 1,000 mL 983.61 mL/hr sodium chloride 0.9% (NS) IV Bolus New Bag 1,000 mL, Intravenous, Administer over 61 Minutes, Once, 09/17/19 at 0800, For 1 dose 09/17/2019 10:15 AM QUALITY CONTROL ASSOCIATE 1,000 mL 983.61 mL/hr sodium chloride 0.9% (NS) IV Bolus New Bag 1,000 mL, Intravenous, Administer over 61 Minutes, Once, 09/17/19 at 0945, For 1 dose 09/23/2019 9:07 AM QUALITY CONTROL ASSOCIATE 2 mg tolterodine (DETROL) tablet 2 mg Given 2 mg, Oral, 2 times daily, First dose o n 09/17/19 at 1240 2 mg Given 09/22/2019 8:26 PM QUALITY CONTROL ASSOCIATE 2 mg Given 09/22/2019 8:50 AM QUALITY CONTROL ASSOCIATE documented in this encounter Additional Health Concerns Last Indicated Resolved Time Infection Onset Date 08/31/2019 09/17/2019 8:17 AM QUALITY CONTROL ASSOCIATE RSV 08/31/2019 documented as of this encounter
--- OUTSIDE RECORDS SUMMARY | 2020-03-16 13:48 | XMS REPORT | Encounter Summary ---
[...] Dixon TELEPHONE ENCOUNTER 09/26/2019 Home Care Visit [facility] Home Care and page [facility] [address] [facility] [address] [place] [address] Social History Date Tobacco Use [...] this visit Shared: Advance 09/09/2019 Directives Disciplines: Custodial, SHARED Active 1 goal linked to scheduled/documented intervention 1 goal intervention scheduled/documented in this visit Shared: Diabetes: 09/09/2019 Knowledge Deficit Related to Diabetic Foot Care Disciplines: Custodial, Physical Therapy, Occupational Therapy, SHARED Active 1 goal linked to scheduled/documented intervention 1 goal intervention scheduled/documented in this visit Shared: Medication Management 09/09/2019 Management and Disciplines: Education Custodial, Physical of All Therapy, Occupational Home Therapy, SHARED Medication s Including Prescripti on and OTC. Active 1 goal linked to scheduled/documented intervention 1 goal intervention scheduled/documented in this visit Shared: Pain Management 09/09/2019 Disciplines: Custodial, Physical Therapy, Occupational Therapy, SHARED Active 1 goal linked to scheduled/documented intervention 1 goal intervention scheduled/documented in this visit Shared: Patient Strength, 09/09/2019 Goals and Care Preferences Disciplines: Custodial, Physical Therapy, Occupational Therapy, SHARED Goal Met? [...] Goal: Directive yes Shared: Durable Power of Data Typist Advance (DPOA), Health Care Power directives of Data Typist (HCPOA) and obtained, Living Will or if [...] Preference short of breath, go to s [place], visit family, Goal: cook own meals and bathe Shared: and dress without Patient/Ca assistance. regiver will progress towards goals and achieve them documented in this encounter
--- OUTSIDE RECORDS SUMMARY | 2020-03-16 13:48 | XMS REPORT | Encounter Summary ---
Author Author [facility] Organization [facility] Address Unknown Phone Unavailable Care Team Providers Care Physician Primary Care Sports Medicine Name Role Phone Ebony Sharp MD PCP Reason for Visit * HH Auth Cert Referred By Contact Referred To Contact Status Reason Specialty Diagnoses / Procedures Encounter Details Care Team Description Date Type Department Sherley Dixon TELEPHONE ENCOUNTER 09/25/2019 Home Care Visit [facility] Home Care and page [facility] [address] [facility] [address] [place] [address] Social History Date Tobacco Use [...] Goal: Directive yes Shared: Durable Power of State Game Protector Advance (DPOA), Health Care Power directives of State Game Protector (HCPOA) and obtained, Living Will or if [...] Preference short of breath, go to s [place], visit family, Goal: cook own meals and bathe Shared: and dress without Patient/Ca assistance. regiver will progress towards goals and achieve them documented in this encounter
--- OUTSIDE RECORDS SUMMARY | 2020-03-16 13:49 | XMS REPORT | Encounter Summary ---
Author Author [facility] Organization [facility] Address Unknown Phone Unavailable Care Team Providers Care Service Manager Name Role Phone Ebony Sharp MD PCP Encounter Details Care Team Description [place] [address] [place] [address] [phone] 09/22/2019 Orders Only [facility] [address] [place] [address] Social History Date Tobacco Use Types Packs/Day [...]
--- OUTSIDE RECORDS SUMMARY | 2020-03-16 13:49 | XMS REPORT | Encounter Summary ---
Author Author [facility] Organization [facility] Address Unknown Phone Unavailable Care Team Providers Care Sports Athletic Trainer Name Role Phone Ebony Sharp MD PCP Reason for Visit * Auth/Cert Referred By Contact Referred To Contact Status Reason Specialty Diagnoses / Procedures Diagnoses Pyelonephritis Sepsis, due to unspecified organism, unspecified whether acute organ dysfunction present (HCC) Encounter Details Care Team Description Date Type Department Jermaine Hines MD [address] [place], [place] [id number] Bernardino Herrera RN KITCHEN MECHANIC [address] [place], [place] [id number] 09/21/2019 Anesthesia [facility] [address] [place], [place] [id number] Anesthesia Record Responsible Anesthesiologist Anesthesia Start Time [...] [place] 09/21/19 1436 by Rae Louie RN KITCHEN MECHANIC Non-Surgic Date: 09/21/19; Time: 1406; Able to mas k 09/21/19 1406 by Bernardino lyons Airway ventilate prior to placement: Yes; Arslan lewis RN KITCHEN MECHANIC Placed By: Client Solutions Manager; Site: Oral; Size: 4; Placement Verified By: [...] Jermaine Hines MD - 09/21/2019 3:41 PM DIVISION ORDER TECHNICIAN Anesthesia Post Evaluation Procedure(s):CYSTOSCOPY, LEFT RETROGRADE PYELOGRAM, [...] SpO2 94 % filed at 09/21/2019 1530 SION ORDER TECHNICIAN * Anesthesia Preprocedure Evaluation - Jermaine Hines MD - 09/21/2019 1:50 PM DIVISION ORDER TECHNICIAN Anesthesia Evaluation Patient summary reviewed No history [...] include: supraglottic airway device Plan discussed with KITCHEN MECHANIC. Anesthetic plan and risks discussed with patient. Recovery plan: PACU PONV Risk: low SION ORDER TECHNICIAN documented in this encounter Plan of Treatment Not on filedocumented as of this encounter Visit Diagnoses Not on filedocumented in this encounter Administered Medications Action Date Dose Rate Site Medication Order MAR Action 09/21/2019 2:11 PM DIVISION ORDER TECHNICIAN 50 mg lidocaine (pf) (XYLOCAINE-MPF) 10 mg/mL Given (1 %) injection Intravenous, As needed, Starting Ju 09/21/19 at 1411, Anesthesia Intra-op 50 mg Given 09/21/2019 2:06 PM DIVISION ORDER TECHNICIAN 09/21/2019 2:28 PM DIVISION ORDER TECHNICIAN 4 mg ondansetron (ZOFRAN) injection Given Intravenous, As needed, Starting Ju 09/21/19 at 1428, Anesthesia Intra-op 09/21/2019 2:06 PM DIVISION ORDER TECHNICIAN 150 mg propofol (DIPRIVAN) injection Given Intravenous, As needed, Starting Ju 09/21/19 at 1406, Anesthesia Intra-op documented in this encounter
--- OUTSIDE RECORDS SUMMARY | 2020-03-16 13:49 | XMS REPORT | Encounter Summary ---
Author Author [facility] Organization [facility] Address Unknown Phone Unavailable Care Team Providers Care Steward/Stewardess Economy Class Name Role Phone Ebony Sharp MD PCP Encounter Details Care Team Description Date [place] [address] [place] [id number] 09/22/2019 Telephone [facility] [address] [place], [place] [id number] Social History Date Tobacco Use Types Packs/Day [...] - Tonja Hernandez - 09/22/2019 4:23 PM LOCK MAINTENANCE SUPERVISOR I scheduled pt for 09/28/[address] Huber. I lm for pt to call me back Wednesday to discuss. MAINTENANCE SUPERVISOR * Telephone Encounter - Tonja Hernandez - 09/22/2019 4:23 PM LOCK MAINTENANCE SUPERVISOR ----- Message from Janet Aragon MD sent at 09/21/2019 2:45 PM LOCK MAINTENANCE SUPERVISOR ----- Regarding: stent pull Please schedule stent pull with KUB with agustin next Wednesday or . If no openings, schedule with me the following week that I am back from vacation. Pls confirm, thanks. Pt currently inpatient at [facility], she should be going home soon. MAINTENANCE SUPERVISOR documented in this encounter Plan of Treatment Not on filedocumented as of this encounter Visit Diagnoses Not on filedocumented in this encounter
--- OUTSIDE RECORDS SUMMARY | 2020-03-16 13:49 | XMS REPORT | Encounter Summary ---
Author Author [facility] Organization [facility] Address Unknown Phone Unavailable Care Team Providers Care Receiving Dock Checker Name Role Phone Ebony Sharp MD [...] Description Date [place] [address] [place] [id number] CYSTOSCOPY, LEFT URETERAL STENT REMOVAL 09/21/2019 Surgery [facility] [address] [place] [address] Social History Date Tobacco Use Types Packs/Day [...] Comments Vital Sign 115/76 09/23/2019 12:09 PM [facility] [employer] [facility] Blood Pressure 63 09/23/2019 12:09 PM [employer] [facility] Pulse 36.7 C (98.1 F) 09/23/2019 12:09 PM [employer] [facility] Temperature 17 09/23/2019 12:09 PM [employer] [employer] [facility] Respiratory Rate 98% 09/23/2019 12:09 PM [employer] [employer] [facility] Oxygen Saturation - - Inhaled Oxygen Concentration 102 kg (224 lb 13.9 oz) 09/23/2019 4:34 AM [employer] [employer] [facility] Weight 157.5 cm (5' 2") 09/17/2019 2:17 PM [employer] [facility] Height 41.13 09/17/2019 2:17 PM [employer] [facility] Body Mass Index documented in this encounter Discharge Summaries * Art Watts II, DO - 09/23/2019 1:06 PM [facility] Summary Patient Name: Isiah Do Board Account No: [id number] Date of : 1950 Date of Admission: [...] Morbid obesity due to excess calories ([facility]) Chronic respiratory failure (HCC) Resolved Problems: Confusion Elevated LFTs Code Status: Full Code Recommended Diet: Diet-Consistent Carbohydrate (75 gm) Diet - Low Fat/Chol, 2gm Na (Simply Healthy) Activity/Restrictions: activity as tolerated Scheduled Follow Up Appointments/Studies ([facility]): Future Appointments Date Time Provider Department Center 09/28/2019 3:35 PM INDEP AUA XR 1 [facility]DEP [facility] XR [facility] 09/28/2019 4:00 PM Darin Huber MD INDEP AUA CL [facility] 10/04/2019 1:45 PM [facility] 10/11/2019 1:30 PM Darin Huber MD INDEP [...] 2 CAPSULES BY MOUTH THREE TIMES DAILY [id number](VIT A,C-BIOTIN) ORAL Oral, Daily hydroCHLOROthiazide 25 MG [...] biliary obstruction, if clinically warranted. READING SITE: [facility] ATTESTATION STATEMENT: The staff radiologist has personally reviewed the images and dictated, reviewed, or edited the final report. Ct Head Wo Contrast Result Date: 09/20/2019 Impression: No acute intracranial process. Mild cerebral volume loss. Mild chronic small vessel ischemic disease. The above findings are in general agreement with those in the preliminary report provided by [employer]. READING SITE: [facility]. ATTESTATION STATEMENT: The Staff Radiologist has personally reviewed the images and dictated, reviewed, or edited the final report. Fl Retrograde Urography In Or Result Date: 09/21/2019 Fluoroscopic support for the Urology services. Please see operative report for details. READING SITE: [facility] Us Abdomen Limited Result Date: 09/20/2019 Impression: 1. Diffuse hepatic steatosis without focal hepatic lesion. 2. Cholecystectomy. ATTESTATION STATEMENT: The Staff Radiologist has personally reviewed this study and agrees with the findings in this report. READING SITE: [employer] Xr Chest 2 Views (pa And Lateral) Result Date: 09/19/2019 1. Bibasilar subsegmental atelectasis. READING SITE: [employer] [facility] Xr Chest Single View Frontal Result Date: 09/17/2019 1. No acute cardiopulmonary abnormality. 2. Low lung volumes. Mild atelectasis. READING SITE: [facility] Cardiac Studies during this encounter: No [...] this summary note. Art Watts II, DO [facility] . [facility] [employer] [facility] documented in this encounter Medications at Time [...] A/vit Take by mouth 0 C/biotin/zinc/copper daily. 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 Complicates all aspects of care Counseled on lifestyle modifications and risk reduction strategies See my orders for additional details regarding this patients treatment plan. Room: [address] [place] [address] Diet: Diet-Consistent Carbohydrate (75 gm) Code Status: [...] prochlorperazine OR prochlor perazine Abdirizak Garcia NP [facility] . [facility] * Arabella Irwin RN ANP - 09/22/2019 8:34 AM [facility] Urology Progress Note Subjective: Interval [...] Problems: COPD (chronic obstructive pulmonary disease) ([facility]) Type 2 diabetes mellitus with hyperglycemia, with long-term current use of ins ulin ([facility]) Essential hypertension SASHA on CPAP Morbid obesity due to excess calories ([facility]) Generalized abdominal pain Suspected UTI Chronic respiratory failure ([facility]) Confusion Elevated LFTs LOS: [...] tomorrow due to transportation. Will defer to [facility]. Appreciate their assistance. We will sign off on care. Electronically signed by Arabella Irwin 09/22/2019 8:34 AM [facility] Associated attestation - Omar Kidd MD - 09/22/2019 9:57 AM [facility] [employer] [facility] I personally saw and examined the patient. I agree with Arabella Irwin NP's f indings, assessment and plan as documented in the note below. Feeling well today. Worried about going home tonight, due to lack of ride. Ok to discharge from standpoint. Script for norco sent to pharmacy. 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 Complicates all aspects of care Counseled on lifestyle modifications and risk reduction strategies See my orders for additional details regarding this patients treatment plan. Room: [facility]/N* Diet: Diet NPO [...] [OCT Hold] prochl orperazine Abdirizak Garcia NP [facility] . [employer] [facility] * Arabella Irwin RN ANP - 09/21/2019 9:02 AM [employer] [employer] [facility] Urology Progress Note Subjective: Interval [...] Problems: COPD (chronic obstructive pulmonary disease) ([facility]) Type 2 diabetes mellitus with hyperglycemia, with long-term current use of ins ulin ([facility]) Essential hypertension SASHA on CPAP Morbid obesity due to excess calories ([facility]) Generalized abdominal pain Suspected [...] signed by Arabella Irwin 09/21/2019 9:02 AM [facility] Associated attestation - Janet Aragon MD - 09/21/2019 2:40 PM [employer] [employer] [facility] Pt seen, discussed procedure with her, she v/u and wishes to proceed. * Arabella Irwin RN ANP - 09/20/2019 9:01 AM [facility] Urology Progress Note Subjective: Interval [...] Problems: COPD (chronic obstructive pulmonary disease) ([facility]) Type 2 diabetes mellitus with hyperglycemia, with long-term current use of ins ulin (HCC) Essential hypertension SASHA on CPAP Morbid obesity due to excess calories (HCC) Generalized abdominal pain Suspected UTI Chronic respiratory failure ([facility]) LOS: 3 days 1. 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 Room: [address] [place] [address] Diet: Diet-Consistent Carbohydrate (75 gm) Code Status: [...] prochlorperazine OR prochlor perazine Hope Cox APRN [facility] . [employer] [facility] * Hope Cox APRN - 09/19/2019 12:08 PM [employer] [facility] Hospitalist - Progress Note Patient Name: Isiah Do Board Account No: [id number] Date of : 1950 Date of Admission: [...] re results (as indicated), current inpatient medications, business process consultant notes and s upport staff notes [...] long-term current use of insul in ([facility]) Last A1c 11.0 in May 2019 BG trends 200-300s Increase Lantus to 25 units nightly Monitor BG ac&hs Increase SSI to level 4 Hypoglycemia protocol, CC diet COPD (chronic obstructive pulmonary disease) ([facility]) Stable. 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 Room: [address] [place] [address] Diet: Diet-Consistent Carbohydrate (75 gm) Code Status: [...] prochlorperazine OR prochlor perazine Hope Cox APRN [facility] . [employer] [facility] * Arabella Irwin RN ANP - 09/19/2019 9:41 AM [employer] Urology Progress Note Subjective: Interval [...] Problems: COPD (chronic obstructive pulmonary disease) ([facility]) Type 2 diabetes mellitus with hyperglycemia, with long-term current use of ins ulin ([facility]) Essential hypertension SASHA on CPAP Morbid obesity due to excess calories ([facility]) Generalized abdominal pain Suspected UTI Chronic respiratory failure ([facility]) LOS: 2 days 1. Left mid ureteral [...] signed by Arabella Irwin 09/19/2019 9:41 AM [facility] * Hope Cox APRN - 09/18/2019 11:24 AM [facility] Hospitalist - Progress Note Patient Name: Isiah Do Board Account No: [id number] Date of : 1950 Date of Admission: [...] performing provider), ECG, current inpatient medications, business process consultant notes, supp ort staff notes, prior [...] long-term current use of insul in ([facility]) Last A1c 11.0 in May 2019 BG trends 200s Increase Lantus to 22 Units nightly Monitor BG ac&hs SSI level 2 Hypoglycemia protocol, CC diet COPD (chronic obstructive pulmonary disease) (HCC) Stable. 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 Room: [facility] [place] [address] Diet: Diet-Consistent Carbohydrate (75 gm) Code Status: [...] prochlorperazine OR prochlor perazine Hope Cox APRN [facility] . [employer] [facility] documented in this encounter H&P Notes * Lashae Crenshaw MD - 09/17/2019 12:49 PM [facility] Hospitalist - History & Physical Patient Name: Isiah Benítez Account No: [id number] Date of : 1950 Date of Admission: [...] Refusal of blood transfusions as patient is [employer]ism Sleep apnea CPAP use Type 2 diabetes [...] STENT PLACEMENT; Surgeon: Darin Huber MD; [place] [facility]; Service: Urology; Laterality: Left; CYSTOSCOPY, RETROGRADE PYELOGRAM, URETEROSCOPY, LASERLITHOTRIPSY, WITH URETE RAL STENT PLACEMENT Left 08/02/2019 Procedure: CYSTOSCOPY, LEFT RETROGRADE PYELOGRAM, LEFT URETEROSCOPY, LASER LITH OTRIPSY, LEFT URETERAL STENT EXCHANGE; Surgeon: Darin Huber MD; [place] [facility]; Service: Urology; Laterality: Left; CYSTOSCOPY, RETROGRADE PYELOGRAM, W/URETERAL STENT PLACEMENT Left 08/30/2019 Procedure: CYSTOSCOPY, LEFT RETROGRADE PYELOGRAM, AND LEFT URETERAL STENT INSER TION; Surgeon: Janet Aragon MD; [place] [facility]; Service: Urolo gy; Laterality: Left; HAND SURGERY Left 03/09/2019 CTR HERNIA REPAIR HYSTERECTOMY OOPHORECTOMY REMOVAL, HARDWARE, FOOT OR ANKLE Left 04/09/2017 Procedure: LEFT ANKLE REMOVAL OF HARDWARE WITH REVISION LEFT ANKLE ARTHRODESIS; Surgeon: Adelaida Olivas MD; Location: [facility]; Service: Orthopedics; Later ality: Left; REPAIR, INCISIONAL HERNIA, LAPAROSCOPIC, USING MESH N/A 05/25/2018 Procedure: LAPAROSCOPIC INCISIONAL HERNIA REPAIR WITH MESH; Surgeon: Medardo Tate MD; Location: [facility]; Service: General; Laterality: N/A; TONSILLECTOMY [...] joann es a day. vit A/vit C/biotin/zinc/copper ([id number],VIT A,C-BIOTIN, ORAL) Take by tanna th daily. [...] the performing provider), ECG, current inpatient medications, ict support technicians notes, p rior admission/outpatient notes and prior [...] long-term current use of insul in ([facility]) Continued home Lantus 20. Ordered SSI #2 with ACHS Accu-Cheks. COPD (chronic obstructive pulmonary disease) ([facility]) Not in acute exacerbation. Continued home inhalers. Continuous pulse ox Oxygen supplementation as needed. Morbid obesity due to excess calories ([facility]) Complicates all aspects of [...] t as noted above. Lashae Crenshaw MD [facility] . [employer] [facility] documented in this encounter Consult Notes * Hilario Diego MD - 09/21/2019 5:28 PM [facility] Associated Order(s): IP CONSULT TO ENDOCRINOLOGY Endocrinology [...] ankle. COPD (chronic obstructive pulmonary disease) ([facility]) Depression Draining postoperative wound [...] Refusal of blood transfusions as patient is [employer]ism Sleep apnea CPAP use Type 2 diabetes [...] STENT EXCHANGE; Surgeon: Darin Huber MD; [place] [facility]; Service: Urology; Laterality: Left; CYSTOSCOPY, RETROGRADE PYELOGRAM, W/URETERAL STENT PLACEMENT Left 08/30/2019 Procedure: CYSTOSCOPY, LEFT RETROGRADE PYELOGRAM, AND LEFT URETERAL STENT INSER TION; Surgeon: Janet Aragon MD; [place] [facility]; Service: Urolo gy; Laterality: Left; HAND SURGERY Left 03/09/2019 CTR HERNIA REPAIR HYSTERECTOMY OOPHORECTOMY REMOVAL, HARDWARE, FOOT OR ANKLE Left 04/09/2017 Procedure: LEFT ANKLE REMOVAL OF HARDWARE WITH REVISION LEFT ANKLE ARTHRODESIS; Surgeon: Adelaida Olivas MD; [place]: [facility]; Service: Orthopedics; Later ality: Left; REPAIR, INCISIONAL HERNIA, LAPAROSCOPIC, USING MESH N/A 05/25/2018 Procedure: LAPAROSCOPIC INCISIONAL HERNIA REPAIR WITH MESH; Surgeon: Medardo Tate MD; Location: [facility]; Service: General; Laterality: N/A; TONSILLECTOMY [...] Unknown at Unknown time vit A/vit C/biotin/zinc/copper ([id number],VIT A,C-BIOTIN, ORAL) Take by mouth daily. 09/16/2019 [...] on phone: None Gets together: None Attends christianity service: None Active member of club or [...] is here. Hilario Diego 09/21/2019 5:28 PM [facility] * Theresa Mata RN - 09/20/2019 3:22 PM [employer] [employer] [facility] Inpatient Diabetes Education Note Diabetes Education provided [...] Diet Education provided: Diabetes Education Materials: [facility] "Diabetes Survival Skills" Guide(Insulin info rmation sheet, Hypo and Hyperglycemia sheets, [facility] Diabetes Managament and Educa tion [...] rotation, Lantus and Humalog. 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 Unable to work due to COPD. Demonstrated use of One Touch Verio meter and will need RX for strips and Lancets. Level of service: 30 minutes Recommendations: Recommend OP DM Education or may need Home Health Education for Diabetes Please refer to [facility] directory for Punch Card Operator's phone number. Lewis Mata RN, CDE [employer] * Fiorella Boyd RN - 09/19/2019 12:31 PM [employer] [facility] Associated Order(s): CONSULT TO CARE PROGRESSION Advance [...] s or concerns. Isabel Boyd RN, BSN Network Control Technician [phone] [facility] * Arabella Irwin RN ANP - 09/18/2019 8:26 AM [employer] [employer] [facility] Associated Order(s): IP CONSULT TO UROLOGY [facility] UROLOGY CONSULT NOTE Patient: Isiah [...] end of urination. Labs reviewed. WBC 12.83K. Manager [employer] 1.0. UA (+) for trace protein, >40 [...] 08/08/2016 Allergic rhinitis Anxiety Bronchitis, chronic ([facility]) Cataract 2011, 2012 bilat cateract surgery Chronic pain disorder back, ribs, and ankle. COPD (chronic obstructive pulmonary disease) ([facility]) Depression Draining postoperative wound 08/08/2016 Endometriosis Essential hypertension Fractures [address] in Left ankle MATA (generalized anxiety disorder) 09/24/2015 Hernia of abdominal cavity Kidney stone Mixed hyperlipidemia 09/24/2015 Morbid obesity due to excess calories ([facility]) 07/10/2016 On home oxygen therapy 2L - usually needs if has an exerbation of COPD, or resp illness SASHA on CPAP Osteoarthritis Refusal of blood transfusions as patient is [employer]ism Sleep apnea CPAP use Type 2 diabetes mellitus with hyperglycemia, with long-term current use of i nsulin ([facility]) 06/29/2016 Urinary calculi Urinary [...] STENT PLACEMENT; Surgeon: Darin Huber MD; [place] [facility]; Service: Urology; Laterality: Left; CYSTOSCOPY, RETROGRADE PYELOGRAM, URETEROSCOPY, LASERLITHOTRIPSY, WITH URETE RAL STENT PLACEMENT Left 08/02/2019 Procedure: CYSTOSCOPY, LEFT RETROGRADE PYELOGRAM, LEFT URETEROSCOPY, LASER LITH OTRIPSY, LEFT URETERAL STENT EXCHANGE; Surgeon: Darin Huber MD; [place] [facility]; Service: Urology; Laterality: Left; CYSTOSCOPY, RETROGRADE PYELOGRAM, W/URETERAL STENT PLACEMENT Left 08/30/2019 Procedure: CYSTOSCOPY, LEFT RETROGRADE PYELOGRAM, AND LEFT URETERAL STENT INSER TION; Surgeon: Janet Aragon MD; [place] [facility]; Service: Urolo gy; Laterality: Left; [...] Unknown at Unknown time vit A/vit C/biotin/zinc/copper (OCLA-ULTJ-FEEN,VIT A,C-BIOTIN, ORAL) Take by mouth daily. 09/16/2019 [...] injection 2.5-5 mg 2.5-5 mg Intravenous Q4H MI N Lashae Crenshaw MD 5 mg at [...] file Gets together: Not on file Attends christianity service: Not on file Active member of [...] 10:05 AM Positive (A) Negative Final Specific Mccammon, UA Date/Time Value Ref Range Status 09/17/2019 [...] biliary obstruction, if clinically warranted. READING SITE: [facility] ATTESTATION STATEMENT: The staff radiologist has personally reviewed the images and dictated, reviewed, or edited the final report. Xr Chest Single View Frontal Result Date: 09/17/2019 1. No acute cardiopulmonary abnormality. 2. Low lung volumes. Mild atelectasis. READING SITE: [facility] ASSESSMENT/PLAN: 1. Left mid ureteral calculus [...] Erika morales. We will continue to follow. [facility] [employer] [facility] Associated attestation - Antonio Duque MD - 09/19/2019 10:59 AM [facility] I personally saw and examined the patient. I agree with Arabella Irwin NP's f indings, assessment and plan as documented in the note below. Patient is feeling much better. She does report subjective low-grade fever. De nies any nausea or vomiting. She is tolerating regular diet and is ambulatory w [facility] assistance. She is quite eager and determined to have treatment of her stone while in-house. We will need to obtain a final urine culture to ensure she is on appropriate a ntibiotics. She may be a candidate for ureteroscopy with laser lithotripsy and stent exchange later this week. Antonio Duque * Jaylyn Batres RN - 09/17/2019 1:00 PM [employer] [employer] [facility] Associated Order(s): CONSULT - VASCULAR ACCESS TEAM Consulted for IV access. Patient had 2 previous IV's infiltrate. This RN placed a 20g 2.25" Accucath to the right AC, brisk blood aspirate, flushed. Rae MEDINA upd ated. [facility] [employer] [facility] documented in this encounter Nursing Notes * Sunny Boyer, ADAM - 09/19/2019 11:27 PM [employer] [employer] [facility] 09/19/19 9934 Goals for Shift Pt/Family Goal for Shift pain control Nursing Goals for the Shift pain control Plan/Interventions to meet Goal PRN pain meds, repositioning [employer] [employer] [facility] documented in this encounter ED Notes * Rae Reyes RN - 09/17/2019 1:04 PM [facility] 800ml NS left to go and restarted second bag of NS since Vascular Access establi shed right ac IV. Lab completed second set of cultures. Ordered diabetic tray fo r patient. C/o 8/10 upper abdominal pain. [employer] [employer] [facility] * Barby Olivo RN - 09/17/2019 12:40 PM [facility] [employer] [facility] PICC team at bedside [facility] * Rae Reyes RN - 09/17/2019 11:[address] Funes states patient will likely need to be admitted. Notified Rachel of n eed for additional ultrasound guided IV placement. [employer] [employer] [facility] * Rae Reyes RN - 09/17/2019 10:55 AM [employer] [employer] [facility] Notified Dr. Funes of right arm ultrasound IV infiltrating after 200ml infused o f second bag of fluids. [employer] [facility] * Rae Reyes RN - 09/17/2019 10:54 AM [employer] [employer] [facility] Daughter called to obtain update. Update provided within HIPPA limits. Notified daughter that I will instruct patient to call her with any updates. [employer] [employer] [facility] * Rae Reyes RN - 09/17/2019 10:06 AM [employer] [employer] [facility] Up to brp with standby assist. Patient using hat to attempt to obtain UA. [employer] [employer] [facility] * Rae Reyes RN - 09/17/2019 8:29 AM [facility] adelfo Prabhakar did not see any viable options for placing IV. Rachel, ultrasound guided trained IV, assessing at bedside for IV access. [facility] * Rae Reyes RN - 09/17/2019 8:20 AM [facility] Discussed with Vanna Fair if can assess for IV placement since unsuccessful x2 . Vanna assessing for IV access site now. [facility] * Luciano Funes MD - 09/17/2019 7:57 AM [facility] 09/17/2019 [facility] History Chief Complaint Patient presents with [...] Refusal of blood transfusions as patient is [employer] Sleep apnea CPAP use Type 2 diabetes [...] STENT PLACEMENT; Surgeon: Darin Huber MD; [place] [facility] [place]; Service: Urology; Laterality: Left; CYSTOSCOPY, RETROGRADE PYELOGRAM, URETEROSCOPY, LASERLITHOTRIPSY, WITH URETE RAL STENT PLACEMENT Left 08/02/2019 Procedure: CYSTOSCOPY, LEFT RETROGRADE PYELOGRAM, LEFT URETEROSCOPY, LASER LITH OTRIPSY, LEFT URETERAL STENT EXCHANGE; Surgeon: Darin Huber MD; [place] [facility] [place]; Service: Urology; Laterality: Left; CYSTOSCOPY, RETROGRADE PYELOGRAM, W/URETERAL STENT PLACEMENT Left 08/30/2019 Procedure: CYSTOSCOPY, LEFT RETROGRADE PYELOGRAM, AND LEFT URETERAL STENT INSER TION; Surgeon: Janet Aragon MD; [place] [facility] [place]; Service: Urolo gy; Laterality: Left; HAND SURGERY Left 03/09/2019 [facility] REPAIR HYSTERECTOMY OOPHORECTOMY REMOVAL, HARDWARE, FOOT OR ANKLE Left 04/09/2017 Procedure: LEFT ANKLE REMOVAL OF HARDWARE WITH REVISION LEFT ANKLE ARTHRODESIS; Surgeon: Adelaida Olivas MD; [place] [facility] [place]; Service: Orthopedics; Later ality: Left; REPAIR, INCISIONAL HERNIA, LAPAROSCOPIC, USING MESH N/A 05/25/2018 Procedure: LAPAROSCOPIC INCISIONAL HERNIA REPAIR WITH MESH; Surgeon: Medardo Tate MD; [place] [facility] [place]; Service: General; Laterality: N/A; TONSILLECTOMY [...] ISIAH BENÍTEZ Sex#: Paulina #: [id number] Jose#: [id number] Location: [facility] SED-11 Rashaad harris Requested: [id number] CT ABDOMEN PELVIS W CONTRAST Reason for [...] obs truction, if clinically warranted. READING SITE: [facility] TATEMENT: The staff radiologist has personally reviewed the images and dictated, reviewed, or edited the final report. Xr Chest Single View Frontal Result Date: 09/17/2019 Patient: ISIAH BENÍTEZ Sex#: F #: [id number] Jose#: [id number] Location: [facility] SED-11 Rashaad harris Requested: [id number] XR CHEST SINGLE VIEW FRONTAL Reason for [...] lung volumes. Mild atelectasis . READING SITE: [facility] Results for orders placed or performed [...] Negative Ketones Urine Negative Negative mg/dL Specific Mccammon, UA >=1.030 1.001 - 1.030 Hemoglobin Urine [...] Disposition Admit Luciano Funes MD 09/17/19 1217 [facility] * Barby Olivo RN - 09/17/2019 7:42 AM [facility] Bed: [facility] Expected date: Expected time: Means of arrival: Comments: [facility] documented in this encounter Miscellaneous Notes * Care Progression Final DC Note - Tiny Reyna RN - 09/23/2019 3:23 PM [facility] Final Discharge Note Final Discharge Disposition: 06-Home Under Care of Organized Home Health Service Organization Discharge goal and plan is mutually agreed upon by patient. Patient will discharge to: Home with home health resumption Transportation: Family Discharge Time: Unknown Special Instructions: Noticed that patient has discharge orders and a plan to re sume home health. Spoke with Floresita Vargas with [facility] who can resume home health, but will need resumption orders. Contacted Dr. Watts via [facility] who gave verbal to resume home health. Sent orde rs to [facility]. Patient had already discharged. Was unable to present IMM letter. Tiny Reyna RN, BSN, Network Control Technician [phone] s [facility] * Nutrition Note - Glenys Carlos RD LD - 09/23/2019 10:13 AM [facility] Nutrition Length of Stay [facility] Patient: Isaih Benítez Age: 69 y.o. : 1950 PRIMARY [...] signed by Glenys Carlos 09/23/2019 10:13 AM [facility] * End of Shift Note - Susan Brock RN - 09/23/2019 4:59 AM [facility] End of Shift Summary and Plan of [...] strain all urine, pain meds as needed [facility] * End of Shift Note - Annie Melchor RN - 09/22/2019 5:20 PM [facility] End of Shift Summary and Plan of [...] strain all urine, pain meds as needed [facility] * Nutrition Note - Letty Andrea RD LD CNSD - 09/22/2019 4:38 PM [facility] Nutrition Education [facility] Patient: Isiah Benítez Age: 69 y.o. [...] signed by Letty Andrea 09/22/2019 4:38 PM [facility] * End of Shift Note - Arabella Mccormick RN - 09/21/2019 6:44 PM [facility] End of Shift Summary and Plan of [...] strain all urine, pain meds as needed [facility] * Operative Note - Janet Aragon MD - 09/21/2019 2:42 PM [facility] PREOPERATIVE DIAGNOSES: Left ureteral stone. POSTOPERATIVE DIAGNOSIS: Left ureteral stone. PROCEDURE: Cystourethroscopy, left ureteral stent removal, left retrograde pyel ogram, left ureteroscopy, laser lithotripsy, basket extraction of stone and left ureteral stent placement (6-Tajik x 26 cm). SURGEON: Dr. Janet Aragon. [...] was backloaded through the scope and a 6-Tajik x 26 cm double-J stent was threaded [...] will remove her stent in 1-2 weeks. [facility] * Brief Operative Note - Jante Aragon MD - 09/21/2019 2:42 PM [facility] Brief Operative Note Isiah Do Board 09/21/2019 Event Time In Procedure / Incision Start 09/21/2019 1414 Pre-op Diagnosis: Left ureteral stone Post-op Diagnosis: same Procedure: CYSTOSCOPY, LEFT RETROGRADE PYELOGRAM, LEFT URETEROSCOPY, LASER LITHOTRIPSY, LEF T URETERAL STENT PLACEMENT, Left - Ureter Surgeon(s) and Role: * Janet Aragon MD - Primary Anesthesia Type: General Staff: Press Pipe Inspector: Janna Pascal RN; Juventino Patel RN Landcare Officer: Jermaine Alcazar Scrub Person: Alex Arredondo Float: Koko Thomas RN; Koko Rodas RN; Lori Mancia CNA Anesthesiologist: Jermaine Hines MD MINESWEEPING OFFICER: Bernardino Herrera RN MINESWEEPING OFFICER; Rae Louie RN MINESWEEPING OFFICER Findings: See dictation Estimated Blood Loss: 0 mL Specimens: . ID Source Type Tests Collected By Collected At A Left Ureter Stone STONE ANALYSIS Janet Aragon MD 09/21/19 1433 Description: left ureter stone Comment: Pre-op diagnosis: N20.1 Implants: Implant Name Type Inv. Item Serial No. Aquatic Facility Manager Lot No. LRB No. Used Action IMPLANT STENT URETERAL CONTOUR 6FR X 26CM W/O [employer] [id number] - SNA Non-Tissue Implant IMPLANT STENT URETERAL CONTOUR 6FR X 26CM W/O [employer] 180-2 [id number] NA [employer] [id number] Left 1 Implanted Complications: None Janet Aragon Date: 09/21/2019 Time: 2:42 PM [facility] * End of Shift Note - Lauryn Ricardo RN - 09/21/2019 6:07 AM [facility] End of Shift Summary and Plan of [...] strain all urine, pain meds as needed [facility] * End of Shift Note - Arabella Mccormick RN - 09/20/2019 5:22 PM [facility] End of Shift Summary and Plan of [...] strain all urine, pain meds as needed [facility] * Assessment & Plan Note - Abdirizak Garcia NP - 09/20/2019 10:08 AM [facility] Associated Problem(s): Elevated LFTs (Resolved 09/23/2019) Mild Likely 2/2 fatty liver and acute infection RUQ US without acuity, hepatic steatosis [facility] * Assessment & Plan Note - Abdirizak Garcia NP - 09/20/2019 10:05 AM [facility] Associated Problem(s): Confusion (Resolved 09/23/2019) Resolved [facility] * Assessment & Plan Note - Art Watts II, DO - 09/20/2019 10:03 AM [facility] Associated Problem(s): Morbid obesity due to excess calories (HCC) Complicates all aspects of care Counseled on lifestyle modifications and risk reduction strategies [facility] * Assessment & Plan Note - Art Watts II, DO - 09/20/2019 10:03 AM [facility] Associated Problem(s): Chronic respiratory failure (HCC) Pulmonary hygiene Continue home COPD regimen [facility] * Assessment & Plan Note - Art Watts II, DO - 09/20/2019 10:03 AM [facility] Associated Problem(s): Type 2 diabetes mellitus with hyperglycemia, with long-te rm current use of insulin (HCC) Continue Lantus 25 units at bedtime Severe allergy listed to metformin Start Januvia Follow-up endocrinology as an outpatient Likely made worse by recent steroid use [facility] * Assessment & Plan Note - Art Watts II, - 09/20/2019 10:02 AM [facility] Associated Problem(s): SASHA on CPAP CPAP at bedtime [facility] * Assessment & Plan Note - Art Watts II, - 09/20/2019 10:01 AM [facility] Associated Problem(s): Essential hypertension Continue chronic home medications [facility] * Assessment & Plan Note - Art Watts II, DO - 09/20/2019 10:00 AM [facility] Associated Problem(s): COPD (chronic obstructive pulmonary disease) ([facility]) Breo Duonebs per home regimen [facility] * Assessment & Plan Note - Art Watts II, DO - 09/20/2019 9:59 AM [facility] Associated Problem(s): Suspected UTI Resolved Completed 5 days Rocephin [facility] * Assessment & Plan Note - Art Watts II, - 09/20/2019 9:58 AM [facility] Associated Problem(s): Generalized abdominal pain Resolved [facility] * Assessment & Plan Note - Art Watts II, DO - 09/20/2019 9:57 AM [facility] Associated Problem(s): Ureteral calculus, left S/P left ureteral stent placement on 08/30 without improvement, cystoscopy with st ent removal and lithotripsy 09/21 Urology recommends follow-up in 1 to 2 weeks Detrol LA pyridium [facility] * End of Shift Note - Sunny Boyer RN - 09/20/2019 5:37 AM [facility] End of Shift Summary and Plan of [...] strain all urine, pain meds as needed [facility] * End of Shift Note - Arabella Mccormick RN - 09/19/2019 6:06 PM [facility] End of Shift Summary and Plan of [...] oral temp, BP 170/90, CT delayed and MILL SET UP aware. CT called at 1800 to send [...] strain all urine, pain meds as needed [facility] * Significant Event - Hope Cox APRN - 09/19/2019 3:40 PM [facility] Hospitalist - Significant Event Patient Name: Isiah Benítez Account No: [id number] Date of : 1950 Date of Admission: 09/17/2019 7:42 AM Ms. Isiah Benítez is a 69 y.o. female who was admitted on 09/17/2019 with Chest p ain. Principal Problem: Ureteral calculus, left Active Problems: Generalized abdominal pain Suspected UTI Confusion COPD (chronic obstructive pulmonary disease) ([facility]) Type 2 diabetes mellitus with hyperglycemia, with long-term current use of ins ulin ([facility]) Essential hypertension SASHA on CPAP Morbid obesity due to excess calories ([facility]) Chronic respiratory failure ([facility]) Elevated LFTs Received message from bedside nurse, [...] results (as indicated), current inpatient medications and ict support technicians notes with pertainent findings noted within the assessment/plan. I have personally sp stephen with the patient, another physican and nursing staff regarding this patient 's case. Room: [address] [place] [address] Diet: Diet-Consistent Carbohydrate (75 gm) Code Status: Full Code Hope Cox APRN [facility] . [facility] * Assessment & Plan Note - Hope Cox APRN - 09/19/2019 12:17 PM [facility] Associated Problem(s): Morbid obesity due to excess calories (HCC) Complicates all aspects of care Strongly recommend dietary changes, lifestyle changes and weight loss [facility] * Assessment & Plan Earnest - Hpoe Cox APRN - 09/19/2019 12:17 PM [facility] Associated Problem(s): Chronic respiratory failure (HCC) On chronic O2 prn Monitor Titrate O2 as needed for goal sat >90% [facility] * Assessment & Plan Note - Hope Cox APRN - 09/19/2019 12:16 PM [facility] Associated Problem(s): Type 2 diabetes mellitus with hyperglycemia, with long-te rm current use of insulin (HCC) Last A1c 11.0 in May 2019 BG trends 200-300s Increase Lantus to 25 units nightly Monitor BG ac&hs Increase SSI to level 4 Hypoglycemia protocol, CC diet [facility] * Assessment & Plan Note - Hope Cox APRN - 09/19/2019 12:16 PM [facility] Associated Problem(s): SASHA on CPAP Compliant with CPAP at home Continue home CPAP regimen [facility] * Assessment & Plan Note - Hope Cox APRN - 09/19/2019 12:15 PM [facility] Associated Problem(s): Essential hypertension Systolic (24hrs), Av , Min:129 , Max:145 Continue Metoprolol Resume home dose HCTZ daily Monitor trends [facility] * Assessment & Plan Note - Hope Cox APRN - 09/19/2019 12:13 PM [facility] Associated Problem(s): COPD (chronic obstructive pulmonary disease) (HCC) Stable. 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 09/17 UA with +LEUs and WBCs >40, no bacteria; UCx with mixed ciera Continue IV Ceftriaxone for now Repeat UA reflex [facility] * Assessment & Plan Note - Hope Cox APRN - 09/19/2019 12:11 PM [facility] Associated Problem(s): Generalized abdominal pain Patient reports generalized abdominal pain but this is worse in the left lower q uadrant. CT abdomen showed left-sided ureteral calculus. S/p ureteral stent on 08/30 See above plan for ureteral calculus Pain control with PO Percocet and IV Morphine [facility] * Assessment & Plan Note - Hope Cox APRN - 09/19/2019 12:11 PM [facility] Associated Problem(s): Ureteral calculus, left CT abdomen showed left ureteral stent and calculus. S/p left ureteral stent placement on 08/30 Urology following, appreciate assist Continue tolterodine Continue PRN PO Percocet and IV Morphine PRN Levsin and Pyridium Plans for possible ureteroscopy with laser lithotripsy and stent exchange [facility] * End of Shift Note - Lizzie Hickey RN - 09/19/2019 2:24 AM [facility] End of Shift Summary and Plan of [...] strain all urine, pain meds as needed [facility] * End of Shift Note - Tania Moscoso RN - 09/18/2019 5:14 PM [facility] End of Shift Summary and Plan of [...] strain all urine, pain meds as needed [facility] * Care Progression Initial Assessment - Fiorella Diana RN - 09/18/2019 5:00 PM [facility] Care Progression Initial Assessment Note Additional information: patient readmission from 09/07/2019. Assessment unchanged from last admit. PCP, pharmacy, insurance, demographics verified as unchanged. Patient is current with [facility]. She has the support of her daughter whom she live s with currently. Denies any needs at home. Would like to resume home care servi sudeep with [facility]. Referral sent. CC will continue to follow for discharge planning. Referral to see patient was placed by Referral Source: Care Progression Referral Name: Fiorella MALIK RN Network Control Technician, Referral Reason: Initial As sessment, Discharge planning, [...] has Payor: MEDICARE REPLACEMENT PLAN / Plan: [employer] MEDICARE / Product T ype: *No Product type* / Legal Information: Patient has advance directive, copy not in chart Type of Healthcare Directive: Durable power of tax associate attorney for health care Copy requested [...] MD and abhilash ves their medications from [id number] - [place], [place] - [address] [facility] [address] [place] [address] [facility] * Assessment & Plan Note - Hope Cox APRN - 09/18/2019 1:34 PM [facility] Associated Problem(s): Chronic respiratory failure (HCC) On chronic O2 prn Monitor Titrate O2 as needed for goal sat >90% [facility] * End of Shift Note - Lizzie Hickey RN - 09/18/2019 5:11 AM [facility] End of Shift Summary and Plan of [...] strain all urine, pain meds as needed [facility] * End of Shift Note - Jaclyn Boston RN - 09/17/2019 5:58 PM [facility] End of Shift Summary and Plan of [...] strain all urine, pain meds as needed [facility] * Assessment & Plan Note - Hope Cox APRN - 09/17/2019 12:48 PM [facility] Associated Problem(s): Suspected UTI Patient was recently treated for a [place] UTI. UA with +LEUs and WBCs >40, no bacteria Continue IV Ceftriaxone for now Follow blood and urine cultures [facility] * Assessment & Plan Note - Hope Cox APRN - 09/17/2019 12:47 PM [facility] Associated Problem(s): Ureteral calculus, left CT abdomen showed left ureteral stent and calculus. S/p left ureteral stent placement on 08/30 Urology following, appreciate assist Continue tolterodine DC IV fentanyl Add Percocet 1-2 tabs Q6 PRN IV Morphine Q4 for breakthrough pain PRN Levsin and Pyridium [facility] * Assessment & Plan Note - Hope Cox APRN - 09/17/2019 12:46 PM [facility] Associated Problem(s): Type 2 diabetes mellitus with hyperglycemia, with long-te rm current use of insulin (HCC) Last A1c 11.0 in May 2019 BG trends 200s Increase Lantus to 22 Units nightly Monitor BG ac&hs SSI level 2 Hypoglycemia protocol, CC diet [facility] * Assessment & Plan Note - Hope Cox APRN - 09/17/2019 12:46 PM [facility] Associated Problem(s): SASHA on CPAP Compliant with CPAP at home Continue home CPAP regimen [facility] * Assessment & Plan Note - Hope Cox APRN - 09/17/2019 12:46 PM [facility] Associated Problem(s): Morbid obesity due to excess calories (HCC) Complicates all aspects of care Strongly recommend dietary changes, lifestyle changes and weight loss [facility] * Assessment & Plan Note - Hope Cox APRN - 09/17/2019 12:45 PM [facility] Associated Problem(s): Generalized abdominal pain Patient reports generalized abdominal pain but this is worse in the left lower q uadrant. CT abdomen showed left-sided ureteral calculus. S/p ureteral stent on 08/30 See above plan for ureteral calculus Pain control with PO Percocet and IV Morphine [facility] * Assessment & Plan Note - Hope Cox APRN - 09/17/2019 12:45 PM [facility] Associated Problem(s): Essential hypertension Systolic (24hrs), Av , Min:110 , Max:148 Continue Metoprolol Hold HCTZ for now until taking adequate PO Monitor trends [facility] * Assessment & Plan Note - Hope Cox APRN - 09/17/2019 12:44 PM [facility] Associated Problem(s): COPD (chronic obstructive pulmonary disease) (HCC) Stable. 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 Isiah Benítez is a 69 y.o. [...] on 09/22, plans to discharge on 09/23 [facility] documented in this encounter Plan of Treatment Order Schedule Name Type Priority Associated Diag noses 1 Occurrences starting 09/23/2019 until 03/23/2020 Ambulatory referral to Outpatient Routine Pyelone phritis Home Health Referral documented as of this encounter Procedures Comments Procedure Name Priority Date/Time Associated Diag nosis GLUCOSE POC Routine 09/23/2019 12:11 PM [facility] GLUCOSE POC Routine 09/23/2019 8:09 AM [facility] CBC AND DIFF (MANUAL DIFF Routine 09/23/2019 IF NECESSARY) 3:03 AM [facility] BASIC METABOLIC PANEL Routine 09/23/2019 3:03 AM [facility] GLUCOSE POC Routine 09/22/2019 11:39 PM [facility] GLUCOSE POC Routine 09/22/2019 7:36 PM [facility] GLUCOSE POC Routine 09/22/2019 4:31 PM [facility] GLUCOSE POC Routine 09/22/2019 12:16 PM [facility] GLUCOSE POC Routine 09/22/2019 7:54 AM [facility] GLUCOSE POC Routine 09/22/2019 5:03 AM [facility] GLUCOSE POC Routine 09/22/2019 12:22 AM [facility] GLUCOSE POC Routine 09/21/2019 10:24 PM [facility] GLUCOSE POC Routine 09/21/2019 7:16 PM [facility] GLUCOSE POC Routine 09/21/2019 4:53 PM [facility] PULSE OXIMETRY, Routine 09/21/2019 CONTINUOUS 4:10 PM [facility] GLUCOSE POC Routine 09/21/2019 3:05 PM [facility] FL RETROGRADE UROGRAPHY Routine 09/21/2019 IN OR 2:52 PM [facility] STONE ANALYSIS Timed 09/21/2019 2:33 PM [facility] CYSTOSCOPY, RETROGRADE 09/21/2019 N20.1 PYELOGRAM, URETEROSCOPY, 2:01 PM [facility] LASER LITHOTRIPSY, WITH URETERAL STENT PLACEMENT Special Needs ROOM [id number] ORDERING HOMIUM LASER jtBIOMED NOTIFIED REMOVAL, STENT, URETER, 09/21/2019 N20.1 CYSTOSCOPIC 2:01 PM [facility] Special Needs ROOM [id number] ORDERING HOMIUM LASER jtBIOMED NOTIFIED GLUCOSE POC Routine 09/21/2019 11:34 AM [facility] GLUCOSE POC Routine 09/21/2019 7:40 AM [facility] TRIIODOTHYRONINE Add-On 09/21/2019 3:43 AM [facility] THYROID CASCADE Add-On 09/21/2019 3:43 AM [facility] T4 FREE Add-On 09/21/2019 3:43 AM [facility] HEMOGLOBIN A1C Add-On 09/21/2019 3:43 AM [facility] COMPREHENSIVE METABOLIC Routine 09/21/2019 PANEL 3:43 AM [facility] CBC AND DIFF (MANUAL DIFF Routine 09/21/2019 IF NECESSARY) 3:43 AM [facility] GLUCOSE POC Routine 09/20/2019 11:58 PM [facility] GLUCOSE POC Routine 09/20/2019 8:23 PM [facility] GLUCOSE POC Routine 09/20/2019 5:01 PM [facility] GLUCOSE POC Routine 09/20/2019 11:20 AM [facility] GLUCOSE POC Routine 09/20/2019 7:35 AM [facility] US ABDOMEN LIMITED Routine 09/20/2019 6:07 AM [facility] GLUCOSE POC Routine 09/20/2019 4:06 AM [facility] LACTATE VENOUS WB Timed 09/20/2019 2:19 AM [facility] COMPREHENSIVE METABOLIC Routine 09/20/2019 PANEL 2:19 AM [facility] CBC AND DIFF (MANUAL DIFF Routine 09/20/2019 IF NECESSARY) 2:19 AM [facility] GLUCOSE POC Routine 09/20/2019 12:03 AM [facility] TROPONIN Timed 09/19/2019 11:12 PM [facility] LACTATE VENOUS WB Timed 09/19/2019 11:12 PM [facility] GLUCOSE POC Routine 09/19/2019 10:26 PM [facility] XR CHEST 2 VIEWS (PA AND Routine 09/19/2019 LATERAL) 9:[address] [facility] HEAD WO CONTRAST STAT 09/19/2019 9:12 PM [facility] TROPONIN Timed 09/19/2019 8:15 PM [facility] LACTATE VENOUS WB Timed 09/19/2019 8:15 PM [facility] GLUCOSE POC Routine 09/19/2019 7:45 PM [facility] GLUCOSE POC Routine 09/19/2019 5:09 PM [facility] CULTURE, BLOOD Timed 09/19/2019 4:56 PM [facility] CULTURE, BLOOD Timed 09/19/2019 4:53 PM [facility] TROPONIN STAT 09/19/2019 4:53 PM [facility] LIPASE Add-On 09/19/2019 4:53 PM [facility] LACTATE VENOUS WB Routine 09/19/2019 4:53 PM [facility] COMPREHENSIVE METABOLIC STAT 09/19/2019 PANEL 4:53 PM [facility] COMPLETE BLOOD COUNT STAT 09/19/2019 4:53 PM [facility] GLUCOSE POC Routine 09/19/2019 4:35 PM [facility] ECG Routine 09/19/2019 3:45 PM [facility] GLUCOSE POC Routine 09/19/2019 3:23 PM [facility] GLUCOSE POC Routine 09/19/2019 11:48 AM [facility] URINALYSIS MICROSCOPIC Routine 09/19/2019 ONLY 11:35 AM [facility] URINALYSIS REFLEX Routine 09/19/2019 11:35 AM [facility] CULTURE, URINE Routine 09/19/2019 11:35 AM [facility] DEAN GLUCOSE POC Routine 09/19/2019 7:43 AM LIBRARY SERVICES DEAN GLUCOSE POC Routine 09/19/2019 3:40 AM [employer]ARY SERVICES DEAN GLUCOSE POC Routine 09/18/2019 11:31 PM [employer]ARY SERVICES DEAN GLUCOSE POC Routine 09/18/2019 9:03 PM [employer]ARY SERVICES DEAN GLUCOSE POC Routine 09/18/2019 5:14 PM [employer] DEAN GLUCOSE POC Routine 09/18/2019 12:16 PM [employer]ARY [employer] DEAN CBC AND DIFF (MANUAL DIFF Routine 09/18/2019 IF NECESSARY) 9:49 AM [employer] SERVICES DEAN GLUCOSE POC Routine 09/18/2019 8:41 AM [employer]ARY SERVICES DEAN BASIC METABOLIC PANEL Routine 09/18/2019 8:06 AM [employer] SERVICES DEAN GLUCOSE POC Routine 09/18/2019 4:07 AM [employer] SERVICES DEAN GLUCOSE POC Routine 09/18/2019 12:04 AM [employer] DEAN LACTATE VENOUS WB Timed 09/17/2019 10:39 PM [employer] DEAN GLUCOSE POC Routine 09/17/2019 7:58 PM [employer] SERVICES DEAN LACTATE VENOUS WB Timed 09/17/2019 7:24 PM [employer] DEAN GLUCOSE POC Routine 09/17/2019 5:10 PM [employer]ARY SERVICES DEAN TROPONIN Timed 09/17/2019 3:47 PM [employer] DEAN LACTATE VENOUS WB Timed 09/17/2019 3:47 PM [employer]ARY [employer] DEAN CULTURE, BLOOD STAT 09/17/2019 1:02 PM [employer]ARY [employer] DEAN CULTURE, BLOOD STAT 09/17/2019 12:38 PM [employer] DEAN TROPONIN STAT 09/17/2019 12:38 PM [employer] DEAN LACTATE VENOUS WB STAT 09/17/2019 12:38 PM [employer] DEAN URINALYSIS MICROSCOPIC STAT 09/17/2019 ONLY 10:05 AM [employer] DEAN URINALYSIS REFLEX STAT 09/17/2019 10:05 AM [employer] DEAN CULTURE, URINE STAT 09/17/2019 10:[address] ABDOMEN PELVIS W STAT 09/17/2019 CONTRAST 8:59 AM [employer]ARY SERVICES DEAN TROPONIN STAT 09/17/2019 8:38 AM [employer] SERVICES DEAN LIPASE STAT 09/17/2019 8:38 AM [employer] SERVICES DEAN COMPREHENSIVE METABOLIC STAT 09/17/2019 PANEL 8:38 AM [employer]ARY SERVICES DEAN CBC AND DIFF (MANUAL DIFF STAT 09/17/2019 IF NECESSARY) 8:38 AM [employer] SERVICES DEAN XR CHEST SINGLE VIEW STAT 09/17/2019 FRONTAL 7:58 AM [employer]ARY SERVICES DEAN ECG STAT 09/17/2019 7:44 AM LIBRARY SERVICES DEAN PULSE OXIMETRY, STAT 09/17/2019 CONTINUOUS 7:43 AM LIB[employer]ARY SERVICES DEAN documented in this encounter Results * GLUCOSE POC (09/23/2019 12:11 PM LIBRARY SERVICES DEAN) Only the most recent of 39 results within the time period is included. [facility] Glucose POC 166 (H) 70 - 100 mg/dL [facility] Specimen Performing Organization Address City/State/Zipcode Ph one Number [facility] [address] [facility] [place] [address] [facility] [address] [place] [address], [facility] * Basic Metabolic Panel (09/23/2019 3:03 AM LIBRARY SERVICES DEAN) Only the most recent of 2 results within the time period is included. [facility] Sodium 135 133 - 147 MEQ/L [facility] Potassium 3.7 3.5 - 5.3 MEQ/L [facility] Chloride 94 (L) 96 - 112 MEQ/L [facility] Carbon Dioxide 36 (H) 20 - 32 MEQ/L [facility] Anion Gap 5 5 - 17 [facility] Calcium 9.0 8.4 - 10.5 mg/dL [facility] Glucose 146 (H) 70 - 100 mg/dL [facility] Blood Urea 30 (H) 7 - 26 mg/dL [facility] Nitrogen [facility] [place] [facility] Creatinine 0.7 0.4 - 1.1 mg/dL [facility] [place] [facility] eGFR Female AA 100 60 - 200 [facility] mL/min/1.73sq m [facility] Isra[facility] [place] [facility] eGFR Female 83 60 - 200 [facility] Non-AA mL/min/1.73sq m [facility] Israeleugenia [place] [facility] Specimen Blood Performing Organization Address City/State/Zipcode Ph one Number [facility] [address] [place] [address] [facility] [facility] [address] [facility] [place] [address] [facility] * CBC and Diff (manual diff if necessary) (09/23/2019 3:03 AM [employer]ARY SERVICES DEAN) Only the most recent of 5 results within the time period is included. WBC 8.80 4.00 - 11.00 TH/uL [facility] [place] [facility] RBC 3.48 (L) 4.00 - 5.00 MIL/uL [facility] Hemoglobin 11.3 (L) 12.0 - 15.0 g/dL [facility] Hematocrit 35 (L) 36 - 45 % [facility] [place] [facility] MCV 99 80 - 99 fL [facility] [place] [facility] MCH 33 27 - 34 pg [facility] [place] [facility] MCHC 33 32 - 36 % [facility] [place] [facility] RDW 13.6 11.5 - 14.5 % [facility] [place] [facility] Platelet Count 172 140 - 400 TH/uL [facility] MPV 10.0 9.4 - 12.3 fL [facility] Nucleated RBCs 0 0 - 0 /100 [facility] [place] [facility] % Neutrophils 54 45 - 78 % [facility] [place] [facility] %Lymphocytes 34 15 - 47 % [facility] [place] [facility] %Monocytes 10 0 - 12 % [facility] [place] [facility] %Eosinophils 2 0 - 7 % [facility] [place] [facility] %Basophils 0 0 - 2 % [facility] [facility] % Imm Grans 0 0 - 1 % [facility] [place] [facility] # Granulocytes 4.77 1.7 - 6.8 TH/uL [facility] [place] [facility] # Lymphocytes 2.95 1.0 - 3.3 TH/uL [facility] [place] [facility] # Monocytes 0.88 0.2 - 0.9 TH/uL [facility] [place] [facility] # Eosinophils 0.16 0.0 - 0.4 TH/uL [facility] [place] [facility] # Basophils 0.01 0.0 - 0.1 TH/uL [facility] [place] [facility] Specimen Blood Performing Organization Address City/State/Zipcode Ph one Number [facility] [address] [place] [address] [facility] [facility] [address] [place] [address] [place] [facility] * FL Retrograde Urography in OR (09/21/2019 2:52 PM LIBRARY SERVICES DEAN) Specimen Impressions Performed At Fluoroscopic support for the Urology services. Plea se see operative LEVI report for details. READING SITE: [facility] Performed At Patient: ISIAH BENÍTEZ Sex#: F #: 1950 Jose #: [id number] Location: [facility] MAIN OR NONE Procedure Requested: [id number] FL RETRO GRADE UROGRAPHY IN OR Reason [...] Rad Results In - 09/21/2019 3:21 PM LIBRARY SERVICES DEAN Patient: ISIAH BENÍTEZ Sex#: F #: 1950 Jose#: [id number] Location: [facility] MAIN OR NONE Procedure Requested: [id number] FL RETROGRADE UROGRAPHY IN OR Reason for [...] see operative report for details. READING SITE: [facility] Performing Organization Address City/[facility] Ph one Number LEVI * Stone Analysis (09/21/2019 2:33 PM LIBRARY SERVICES DEAN) Stone Color Brown [facility] Stone Size [id number]: Specimen received mm [facility] as fragments. Stone Weight 61.4 mg [facility] Stone CommentComment: Percentage [facility] Composition (Represents the % compositi on) Stone Ca 10 % [facility] oxalate dihydrate Stone Ca 90 % [facility] oxalate monohydr Stone Comment Comment [facility] Comment: Calculi report will follow via computer, mail or back filler operator delivery. Stone Comment Comment [facility] Comment: Physician questions regarding Calculi Analysis contact [facility] at: [phone]. Disclaimer : Comment [facility] Comment: This test was developed and its performance characteristics determined by [facility]. It has not been cleared or approved by the Food and Drug Administration. Test performed at [facility] Stone Analysis [address] [place] [address] [place] [address] Source CommentComment: Left Ureter [facility] Specimen Stone - Left Ureter Performing Organization Address City/State/[facility] Ph one Number [facility] [address] [place], [place] [address] [facility] Interface [phone] [place] [address] [place] [address] * Triiodothyronine (09/21/2019 3:43 AM LIBRARY SERVICES DEAN) Triiodothyronin 0.8 (L) 1.0 - 1.7 ng/mL [facility] Lab Specimen Blood Performing Organization Address City/[facility] Ph one Number [facility] [address] [place] [address] LABORATORIES [facility] [address] [place] [address] * T4 Free (09/21/2019 3:43 AM LIBRARY SERVICES DEAN) T4 Free 1.0 0.8 - 2.2 ng/dL [facility] [place] [facility] Specimen Blood Performing Organization Address [facility] one Number [facility] [address] [place] [address] [facility] [facility] [address] [place] [address] [place] [facility] * Thyroid [place] (09/21/2019 3:43 AM LIBRARY SERVICES DEAN) Thyroid 0.37 (L) 0.47 - 4.68 uIU/mL [facility] Stimulating [facility] Hormone [place] [facility] Specimen Blood Performing Organization Address [facility] one Number [facility] [address] [place], [place] [address] [facility] [address] [place] [address] [place] [facility] * Hemoglobin A1C (09/21/2019 3:43 AM LIBRARY SERVICES DEAN) Hemoglobin A1C 12.4 (H) 4.0 - 5.6 % [facility] Comment: Hospital Lab Non-diabetic 4.0 - 5.6 % Prediabetes 5.7 - 6.4 % Diabetes >= 6.5 % Specimen Blood Performing Organization Address City/State/Zipcode Ph one Number [facility] [address] [place] [address] LABORATORIES [facility] [address] [place] [address] * Comprehensive Metabolic Panel (09/21/2019 3:43 AM LIBRARY SERVICES DEAN) Only the most recent of 4 results within the time period is included. [facility] Signature Sodium 136 133 - 147 MEQ/L [facility] Potassium 3.9 3.5 - 5.3 MEQ/L [facility] Chloride 96 96 - 112 MEQ/L [facility] Carbon Dioxide 36 (H) 20 - 32 MEQ/L [facility] Anion Gap 5 5 - 17 [facility] [place] [facility] Calcium 10.0 8.4 - 10.5 mg/dL [facility] Glucose 107 (H) 70 - 100 mg/dL [facility] [place] [facility] Protein Total 7.8 6.0 - 8.2 g/dL [facility] Serum [facility] [place] [facility] Albumin 4.1 3.5 - 5.0 g/dL [facility] [place] [facility] Alkaline 142 (H) 42 - 140 IU/L [facility] Phosphatase [facility] [facility] Alanine 94 (H) 0 - 34 IU/L [facility] Aminotransferas [facility] e [place] [facility] Aspartate 36 15 - 46 IU/L [facility] Aminotransferas [facility] e [place] [facility] Bilirubin Total 0.4 0.2 - 1.3 mg/dL [facility] [place] [facility] Blood Urea 26 7 - 26 mg/dL [facility] Nitrogen [facility] [place] [facility] Creatinine 0.8 0.4 - 1.1 mg/dL [facility] [place] [facility] eGFR Female AA 86 60 - 200 [facility] mL/min/1.73sq [facility] [place] [facility] eGFR Female 72 60 - 200 [facility] Non-AA mL/min/1.73sq ken Ramos [place] [facility] Specimen Blood Performing Organization Address City/State/Zipcode Ph one Number [facility] [address] [place] [address] [facility] [address] [place] [address] [facility] [place] [facility] * US Abdomen limited (09/20/2019 6:07 AM LIBRARY SERVICES DEAN) Specimen Impressions Performed At Impression: LEVI 1. Diffuse hepatic steatosis without fo rosalind hepatic lesion. 2. Cholecystectomy. ATTESTATION STATEMENT: The Staff Radiologist has personally re viewed this study and agrees with the findings in this report. READING SITE: [facility] Narrative Performed At Patient: ISIAH BENÍTEZ Sex#: F #: 1950 Jose #: [id number] Location: [place] [address] Access ion#: [id number] Procedure Requested: [id number] US ABDOM EN LIMITED Reason for Exam: [...] Rad Results In - 09/20/2019 7:38 AM LIBRARY SERVICES DEAN Patient: ISIAH BENÍTEZ Sex#: F #: 1950 Jose#: [id number] Location: [place] [address] Procedure Requested: [id number] US ABDOMEN LIMITED Reason for Exam: elevated [...] the findings in this report. READING SITE: [facility] Performing Organization Address [facility] one Number LEVI * Lactate Venous WB (09/20/2019 2:19 AM LIBRARY SERVICES DEAN) Only the most recent of 8 results within the time period is included. Lactate Venous 1.8 0.0 - 2.0 mmol/L [facility] [place] [facility] Specimen Blood Narrative Performed At Reflex sepsis screen >2.0 [facility] Performing Organization Address City/[facility] one Number [facility] [address] [place] [address] [facility] [facility] [address] [place] [address] [place] [facility] [address] [place] [address], [place] [phone] [facility] * Troponin - 3 and 6 hr (09/19/2019 11:12 PM LIBRARY SERVICES DEAN) Only the most recent of 6 results within the time period is included. Troponin <0.01 0.00 - 0.03 ng/mL [facility] Comment: C[facility] Ramos Troponin Value [place] [facility] Interpretation 0.00 - 0.03 Healthy 0.04 - 0.12 Increased Cardiac Risk >0.12 Myocardial Infarction Troponin may not become elevated until 6 to 8 hours after onset of symptoms. Specimen Blood Performing Organization Address City/State/Zipcode Ph one Number [facility] [address] [place] [address] [facility] [facility] [address] [place] [address] [facility] [facility] * XR Chest 2 views (PA and lateral) (09/19/2019 9:19 PM LIBRARY SERVICES DEAN) Specimen Impressions Performed At 1. Bibasilar subsegmental atelectasis. LEVI READING SITE: [facility] Narrative Performed At Patient: ISIAH BENÍTEZ Sex#: F #: 1950 Jose #: [id number] Location: [place] [address] Access ion#: [id number] Procedure Requested: [id number] XR CHEST 2 VIEWS (PA AND LATERAL) [...] Rad Results In - 09/19/2019 9:54 PM LIBRARY SERVICES DEAN Patient: ISIAH BENÍTEZ Sex#: F #: 1950 Jose#: [id number] [place]: [facility] 4 U 1 4042-08 Procedure Requested: [id number] XR CHEST 2 VIEWS (PA AND LATERAL) [...] IMPRESSION 1. Bibasilar subsegmental atelectasis. READING SITE: Psychiatric Organization Address City/State/Zipcode Ph one Number LEVI * CT Head wo contrast (09/19/2019 9:12 PM LIBRARY SERVICES DEAN) Specimen Impressions Performed At Impression: LEVI No acute intracranial process. Mild cerebral volume loss. Mild chronic small vessel ischemic disease. The above findings are in general agree ment with those in the preliminary report provided by [employer]. READING SITE: [facility]. ATTESTATION STATEMENT: The Staff Radiol ogist has personally reviewed the images and dictated, reviewed, or edite d the final report. Narrative Performed At Patient: ISIAH BENÍTEZ Sex#: F #: 1950 Jose #: [id number] Location: [address] 1 [facility]10-21 Access ion#: [id number] Procedure Requested: [id number] CT HEAD WO CONTRAST Reason for Exam: [...] The mastoid air cells are clear. The locomotive inspector topogram shows no lytic lesio n or fracture. Procedure Note Interface, Rad Results In - 09/20/2019 10:19 AM LIBRARY SERVICES DEAN Patient: ISIAH BENÍTEZ Sex#: Paulina #: 1950 Jose#: [id number] Location: [place] [address] 4043-01 Procedure Requested: [id number] CT HEAD WO CONTRAST Reason for Exam: [...] The mastoid air cells are clear. The locomotive inspector topogram shows no lytic lesion or fracture. IMPRESSION Impression: No acute intracranial process. Mild cerebral volume loss. Mild chronic small vessel ischemic disease. The above findings are in general agreement with those in the preliminary report provided by [employer]. READING SITE: [facility]. ATTESTATION STATEMENT: The Staff Radiologist has personally reviewed the images and dictated, reviewed, or edited the final report. Performing Organization Address City/[facility] Ph one Number LEVI * Culture, Blood (09/19/2019 4:56 PM LIBRARY SERVICES DEAN) Only the most recent of 4 results within the time period is included. Culture Result No Growth at 5 days [facility] Specimen Blood Narrative Performed At 3ml rfa [facility] Performing Organization Address [facility] one Number [address] [address] LABORATORIES [facility] [address] [place] [address] * Lipase (09/19/2019 4:53 PM LIBRARY SERVICES DEAN) Only the most recent of 2 results within the time period is included. Lipase 143 23 - 300 IU/L [facility] Specimen Blood Performing Organization Address [facility] one Number [facility] [address] [place] [address] [facility] [address] [facility] [place] [address] [place] [facility] * Complete Blood Count (09/19/2019 4:53 PM LIBRARY SERVICES DEAN) WBC 10.54 4.00 - 11.00 TH/uL [facility] RBC 4.33 4.00 - 5.00 MIL/uL [facility] Hemoglobin 14.0 12.0 - 15.0 g/dL [facility] [place] [facility] Hematocrit 43 36 - 45 % [facility] [facility] MCV 99 80 - 99 fL [facility] [facility] MCH 32 27 - 34 pg [facility] MCHC 33 32 - 36 % [facility] [facility] RDW 13.1 11.5 - 14.5 % [facility] Platelet Count 197 140 - 400 TH/uL [facility] MPV 10.5 9.4 - 12.3 fL [facility] Nucleated RBCs 0 0 - 0 /100 [facility] Specimen Blood Performing Organization Address City/State/[facility] Ph one Number [facility] [address] [facility] [place] [address] [facility] [facility] [address] [facility] [place] [address] [place] [facility] * Electrocardiogram (ECG) (09/19/2019 3:45 PM LIBRARY SERVICES DEAN) Only the most recent of 2 results within the time period is included. 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 : 1950 Requested By: HOPE COX Order Number: [id number] Reading MD: Louie Reyes Measurements Intervals [place] Rate: 84 P: 38 MI: 144 QRS: 3 QRSD: 108 T: 24 QT: 384 QTc: 454 Interpretive Statements SINUS RHYTHM PROBABLE LEFT VENTRICULAR HYPERTROPHY Electronically Signed On 09-20-2019 10:3 7:02 LIBRARY SERVICES DEAN by Louie Reyes Procedure Note Interface, External Ris In - 09/20/2019 10:37 AM LIBRARY SERVICES DEAN [facility] Test Date: 2019-09-19 Pat Name: ISIAH BENÍTEZ Department: SP1 Room: 4043 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: [id number] : 1950 Requested By: HOPE COX Order Number: [id number] Reading MD: Louie Reyes Measurements Intervals [place] Rate: 84 P: 38 MI: 144 QRS: 3 QRSD: 108 T: 24 QT: 384 QTc: 454 Interpretive Statements SINUS RHYTHM PROBABLE LEFT VENTRICULAR HYPERTROPHY Electronically Signed On 09-20-2019 10:37:02 LIBRARY SERVICES DEAN by Louie Reyes Performing Organization Address [facility] one Number TRACEMASTER * Urinalysis Microscopic Only (09/19/2019 11:35 AM LIBRARY SERVICES DEAN) Only the most recent of 2 results within the time period is included. Microscopic RBC >40 (A) 0 - 5 /hpf [facility] Urine [facility] [place] [facility] Microscopic WBC 0-5 0 - 5 /hpf [facility] Urine [facility] [place] [facility] Epithelial Absent Absent [facility] Cells [facility] [facility] Hyaline Cast Absent Absent [facility] [facility] Bacteria Absent Absent [facility] [place] [facility] Specimen Catheter Urine Performing Organization Address [facility] one Number [facility] [address] [facility] [place] [address] [facility] [facility] [address] [facility] [place] [address] [place] [facility] * Culture, Urine (09/19/2019 11:35 AM LIBRARY SERVICES DEAN) Only the most recent of 2 results within the time period is included. Culture Result No growth [facility] Specimen Catheter Urine Performing Organization Address [facility] one Number [facility] [address] [place] [address] LABORATORIES [facility] [address] [place] [address] * Urinalysis Reflex (09/19/2019 11:35 AM LIBRARY SERVICES DEAN) Only the most recent of 2 results within the time period is included. Appearance, Yellow [facility] Urine [facility] [place] [facility] Glucose Urine >=1000 (A) Negative mg/dL [facility] [place] [facility] Bilirubin Urine Negative Negative [facility] [place] [facility] Ketones Urine Negative Negative mg/dL [facility] [place] [facility] Specific 1.020 1.001 - 1.030 [facility] [place], [facility]A [facility] [place] [facility] Hemoglobin Large (A) Negative [facility] Urine [facility] [place] [facility] PH Urine 5.5 5.0 - 8.0 leonel's [facility] [place] [facility] Protein Urine 30 (A) Negative mg/dL [facility] Qual [facility] [place] [facility] Urobilinogen Negative Negative EU/dL [facility] Urine [facility] [place] [facility] Nitrite Urine Negative Negative firstSTREET for [employer]'s [facility] [place] [facility] Leukocyte Negative Negative [facility] Esterase [facility] [place] [facility] Specimen Catheter Urine Performing Organization Address City/State/[facility] Ph one Number [facility] [address] [place] [address] [facility] [facility] [address] [facility] [address] [facility] * CT Abdomen Pelvis w contrast (09/17/2019 8:59 AM LIBRARY SERVICES DEAN) Specimen Impressions Performed At 1. Interval placement [...] biliary obstruction, if clinically warranted. READING SITE: [facility] ATTESTATION STATEMENT: The staff radiol ogist has personally reviewed the images and dictated, reviewed, or edite d the final report. Narrative Performed At Patient: ISIAH BENÍTEZ Sex#: Paulina #: 1950 Jose #: [id number] [place] [facility] SED[facility] Procedure Requested: [id number] CT ABDOM EN PELVIS W CONTRAST Reason [...] Rad Results In - 09/17/2019 9:54 AM LIBRARY SERVICES DEAN Patient: ISIAH BENÍTEZ Sex#: Paulina #: 1950 Jose#: [id number] Location: [facility] SED-[facility] Procedure Requested: [id number] CT ABDOMEN PELVIS W CONTRAST Reason for [...] biliary obstruction, if clinically warranted. READING SITE: [facility] ATTESTATION STATEMENT: The staff radiologist has personally reviewed the images and dictated, reviewed, or edited the final report. Performing Organization Address City/State/Zipcode Ph eveline SIMS * XR Chest single view frontal (09/17/2019 7:58 AM LIBRARY SERVICES DEAN) Specimen Impressions Performed At 1. No acute cardiopulmonary abnormality. LEVI 2. Low lung volumes. Mild atelectasis . READING SITE: [facility] Narrative Performed At Patient: ISIAH BENÍTEZ Sex#: F #: [id number] Jose #: [id number] Location: [facility] SED-11 Procedure Requested: [id number] XR CHEST SINGLE VIEW FRONTAL Reason for [...] Rad Results In - 09/17/2019 8:14 AM LIBRARY SERVICES DEAN Patient: ISIAH BENÍTEZ Sex#: Paulina #: 1950 Jose#: [id number] [place] [facility] [place] Procedure Requested: [id number] XR CHEST SINGLE VIEW FRONTAL Reason for [...] Low lung volumes. Mild atelectasis. READING SITE: [facility] Address City/State/Zipcode Ph one Number LEVI documented in this encounter Visit Diagnoses Not on filedocumented in this encounter Administered Medications Action Date Dose Rate Site Medication Order MAR Action 09/22/2019 8:23 PM LIBRARY SERVICES DEAN 25 mg amitriptyline (ELAVIL) tablet 25 mg Given 25 mg, Oral, Nightly, First dose on 09/17/19 at 2100 25 mg Given 09/21/2019 8:13 PM LIBRARY SERVICES DEAN 25 mg Given 09/20/2019 10:13 PM LIBRARY SERVICES DEAN 09/22/2019 8:23 PM LIBRARY SERVICES DEAN 40 mg atorvastatin (LIPITOR) tablet 40 mg Given 40 mg, Oral, Nightly, First dose on 09/17/19 at 2100 40 mg Given 09/21/2019 8:13 PM LIBRARY SERVICES DEAN 40 mg Given 09/20/2019 10:13 PM LIBRARY SERVICES DEAN 09/21/2019 2:35 PM LIBRARY SERVICES DEAN 1 suppository belladonna-opium (B&O SUPPRETTES) Given 16.2-60 MG suppository As needed, Starting Ju 09/21/19 at 1435 , Intra-op 09/23/2019 8:23 AM LIBRARY SERVICES DEAN 20 mg citalopram (CeleXA) tablet 20 mg Given 20 mg, Oral, Daily, First dose on 09/17/19 at 1240 20 mg Given 09/22/2019 8:50 AM LIBRARY SERVICES DEAN 20 mg Given 09/20/2019 9:00 AM LIBRARY SERVICES DEAN 09/17/2019 8:04 PM LIBRARY SERVICES DEAN 10 mg cyclobenzaprine (FLEXERIL) tablet 10 mg [...] less than 70 mg/dL., 09/22/2019 10:31 AM LIBRARY SERVICES DEAN 100 mg docusate sodium (COLACE) capsule 100 mg Given 100 mg, Oral, 2 times daily PRN, stool softening, Starting Wed09/17/19 at 1238 , DO NOT CRUSH OR CHEW., 100 mg Given 09/20/2019 9:00 AM LIBRARY SERVICES DEAN 100 mg Given 09/17/2019 5:47 PM LIBRARY SERVICES DEAN fentaNYL (SUBLIMAZE) injection 12.5 mcg 12.5 mcg, [...] or PO opiate therapy., 09/23/2019 8:10 AM LIBRARY SERVICES DEAN 1 puff fluticasone furoate-vilanterol (BREO Given ELLIPTA) 200-25 mcg/actuation inhaler 1 puff 1 puff, Inhalation, Daily, First dose o n Wed09/17/19 at 1240, Rinse mouth with water after use if patient not on vent. , 1 puff Given 09/22/2019 8:51 AM LIBRARY SERVICES DEAN 1 puff Given 09/21/2019 8:11 AM LIBRARY SERVICES DEAN 09/23/2019 8:23 AM LIBRARY SERVICES DEAN 600 mg gabapentin (NEURONTIN) capsule 600 mg Given 600 mg, Oral, 3 times daily, First dose on Wed09/17/19 at 1240 600 mg Given 09/22/2019 8:23 PM LIBRARY SERVICES DEAN 600 mg Given 09/22/2019 4:07 PM LIBRARY SERVICES DEAN glucagon (GLUCAGEN) injection 1 mg 1 mg, Intramuscular, As needed, low blood sugar, low blood sugar, Starting Wed09/17/19 at 1240, Give if patient MILL SET UP O and no IV access. May give IM or SQ in arm and turn patient on side. Reconstitute powder for injection by adding 1 mL of hot car charger-supplied sterile diluent or sterile water for injection [...] for injection by adding 1 mL of hot car charger-supplied sterile diluent o r sterile water for [...] less than 70 mg/dL., 09/23/2019 8:23 AM LIBRARY SERVICES DEAN 25 mg hydroCHLOROthiazide (HYDRODIURIL) tablet Given 25 mg 25 mg, Oral, Daily, First dose on Wed09/20/19 at 0900 25 mg Given 09/22/2019 8:50 AM LIBRARY SERVICES DEAN 25 mg Given 09/20/2019 9:00 AM LIBRARY SERVICES DEAN 09/21/2019 8:13 PM LIBRARY SERVICES DEAN 0.125 mg hyoscyamine (LEVSIN/SL) SL tablet 0.125 Given mg 0.125 mg, Sublingual, Every 4 hours PRN , bladder spasms, Starting 09/18/19 at 0905 0.125 mg Given 09/20/2019 2:37 PM LIBRARY SERVICES DEAN 0.125 mg Given 09/18/2019 11:59 PM LIBRARY SERVICES DEAN 09/22/2019 9:31 PM LIBRARY SERVICES DEAN 25 Units Left Low er Abdomen insulin glargine (LANTUS) injection 25 Given Units 25 Units, Subcutaneous, Nightly, First dose (after last modification) on Wed09/19/19 at 2100 25 Units Left Lower Abdomen Given 09/21/2019 8:14 PM LIBRARY SERVICES DEAN 25 Units Right Lower Abdomen Given 09/20/2019 9:00 PM LIBRARY SERVICES DEAN 09/23/2019 12:39 PM LIBRARY SERVICES DEAN 3 Units Right Lo wer Abdomen insulin [...] Left Lower Abdomen Given 09/22/2019 9:31 PM LIBRARY SERVICES DEAN 15 Units Left Lower Abdomen Given 09/22/2019 4:41 PM LIBRARY SERVICES DEAN 09/21/2019 2:35 PM LIBRARY SERVICES DEAN 1 application Operativ e Site lidocaine (GLYDO) 2 % jelly Given As needed, Starting Ju 09/21/19 at 1435 , Intra-op 09/21/2019 10:16 PM LIBRARY SERVICES DEAN 3 mg melatonin tablet 3 mg Given 3 mg, Oral, Nightly PRN, sleep, Startin g Wed09/17/19 at 1238, Give 3-4 hours prior to planned bedtime., 3 mg Given 09/20/2019 10:13 PM LIBRARY SERVICES DEAN 3 mg Given 09/19/2019 8:22 PM LIBRARY SERVICES DEAN 09/23/2019 8:23 AM LIBRARY SERVICES DEAN 100 mg metoprolol tartrate (LOPRESSOR) tablet Given 100 mg 100 mg, Oral, 2 times daily, First dose on Wed09/17/19 at 1315, Hold for SBP <100, HR <55, 100 mg Given 09/22/2019 8:23 PM LIBRARY SERVICES DEAN 100 mg Given 09/22/2019 8:49 AM LIBRARY SERVICES DEAN 09/23/2019 8:23 AM LIBRARY SERVICES DEAN 2 tablets oxyCODONE-acetaminophen (PERCOCET) 5-325 Given mg 1-2 tablet 1-2 tablet, Oral, Every 6 hours PRN, moderate pain (pain score 4-6), severe pain (pain score 7-10), Starting 09/18/19 at 1139, Do not exceed 4 GM/DAY of acetaminophen. If 65 or older do no t exceed 3 GM/DAY. If chronic alcoholic d o not exceed 2 GM/DAY., 2 tablets Given 09/23/2019 2:00 AM LIBRARY SERVICES DEAN 2 tablets Given 09/22/2019 7:48 PM LIBRARY SERVICES DEAN 09/22/2019 10:31 AM LIBRARY SERVICES DEAN 100 mg phenazopyridine (PYRIDIUM) tablet 100 mg [...] through a central line., 09/17/2019 1:12 PM LIBRARY SERVICES DEAN 5 mg prochlorperazine (COMPAZINE) injection Given 2.5-5 mg 2.5-5 mg, Intravenous, Every 4 hours PRN, nausea/vomiting (1st line), Starting [place] 09/17/19 at 1238, May repea t 2.5 [...] and refuses IM injection., 09/21/2019 2:28 PM LIBRARY SERVICES DEAN 3,000 mL sodium chloride irrigation 3000 mL Given (bladder) (NS) 0.9 % As needed, Starting Ju 09/21/19 at 1426 , Intra-op 3,000 mL Given 09/21/2019 2:26 PM LIBRARY SERVICES DEAN 09/23/2019 9:07 AM LIBRARY SERVICES DEAN 2 mg tolterodine (DETROL) tablet 2 mg Given 2 mg, Oral, 2 times daily, First dose o n 09/17/19 at 1240 2 mg Given 09/22/2019 8:26 PM LIBRARY SERVICES DEAN 2 mg Given 09/22/2019 8:50 AM LIBRARY SERVICES DEAN documented in this encounter Additional Health Concerns Last Indicated Resolved Time Infection Onset Date 08/31/2019 09/17/2019 8:17 AM LIBRARY SERVICES DEAN RSV 08/31/2019 documented as of this encounter
--- OUTSIDE RECORDS SUMMARY | 2020-03-16 13:50 | XMS REPORT | Encounter Summary ---
Author Author [facility] Organization [facility] Address Unknown Phone Unavailable Care Team Providers Care Pharmaceutical Compounding Supervisor Name Role Phone Ebony Sharp MD PCP Reason for Referral * Surgical (Routine) Referred By Contact Referred To Contact Status Reason Specialty Diagnoses / [place] [address] [address] [place] [address] [place] [id number] Authorized Urology Diagnoses Nephrolithiasis P rocedures External Uro Surgery Encounter Details Care Team Description Date [place] [address] [place] [address] [phone] Nephrolithiasis (Primary Dx) 09/14/2019 Orders Only [facility] [address] [place] [address] [phone] Social History Date Tobacco Use Types Packs/Day [...] Infection Onset Date 08/31/2019 09/17/2019 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
--- OUTSIDE RECORDS SUMMARY | 2020-03-16 13:50 | XMS REPORT | Encounter Summary ---
Author Author [facility] Organization [facility] Address Unknown Phone Unavailable Care Team Providers Care Obstetrics Nurse Practitioner Name Role Phone Ebony Sharp MD PCP Reason for Visit * HH Auth Cert Referred By Contact Referred To Contact Status Reason Specialty Diagnoses / Procedures Encounter Details Care Team Description Date Type Department Aury Louis RN SN MISSED VISIT DOCUMENTATION 09/18/2019 Home Care Visit [facility] Home Care and page [facility] [address] [facility] [address] [place] [phone] Social History Date Tobacco Use Types Packs/Day [...] Aury Louis RN - 09/18/2019 4:30 PM LEAD SOFTWARE DEVELOPMENT ENGINEER Patient was admitted to the hospital yesterday with abdominal pain. She conseque ntly missed today's HH visit. Will be filling out transfer documentation. SOFTWARE DEVELOPMENT ENGINEER documented in this encounter Plan of Treatment Not on filedocumented as of this encounter Visit Diagnoses Not on filedocumented in this encounter Home Health Visit - Care Plan Visit Type - SN Missed Visit Documenta tion Discipline - Mcc Status Goals Interventions Problem Descriptio Start Date n Active 1 goal linked to scheduled/documented intervention 1 goal intervention scheduled/documented in this visit SN DM: Knowledge Deficit 09/09/2019 Related to Diabetes Disciplines: Mcc Active 1 goal linked to scheduled/documented intervention 1 goal intervention scheduled/documented in this visit SN : Knowledge Deficit 09/09/2019 Related to UTI Disciplines: Mcc Active 1 goal linked to scheduled/documented intervention [...] Goal: Directive yes Shared: Durable Power of Teacher Lip Reading Advance (DPOA), Health Care Power directives of Teacher Lip Reading (HCPOA) and obtained, Living Will or if [...]
--- OUTSIDE RECORDS SUMMARY | 2020-03-16 13:50 | XMS REPORT | Encounter Summary ---
Author Author [facility] Organization [facility] Address Unknown Phone Unavailable Care Team Providers Care Surveyor Oil Well Directional Name Role Phone Ebony Sharp MD PCP Reason for Visit * HH Auth Cert Referred By Contact Referred To Contact Status Reason Specialty Diagnoses / Procedures Encounter Details Care Team Description Date Type Department Thania Perez PT CASE COMMUNICATION 09/19/2019 Home Care Visit [facility] [address] [facility] [address] [place] [phone] Social History Date Tobacco Use Types Packs/Day [...] Goal: Directive yes Shared: Durable Power of Professional Builder Advance (DPOA), Health Care Power directives of Professional Builder (HCPOA) and obtained, Living Will or [...] Preference short of breath, go to s [facility], visit family, Goal: cook own meals and bathe Shared: and dress without Patient/Ca assistance. regiver will progress towards goals and achieve them documented in this encounter
--- OUTSIDE RECORDS SUMMARY | 2020-03-16 13:50 | XMS REPORT | Encounter Summary ---
Author Author [facility] Organization [facility] Address Unknown Phone Unavailable Care Team Providers Care Terrazzo Mechanic Name Role Phone Ebony Sharp MD PCP Reason for Visit * HH Auth Cert Referred By Contact Referred To Contact Status Reason Specialty Diagnoses / Procedures Encounter Details Care Team Description Date Type Department Shannon Rangel LPN SN MISSED VISIT DOCUMENTATION 09/13/2019 Home Care Visit [facility] Home Care and page [facility] [address] [facility] [address] [place] [phone] Social History Date Tobacco Use Types Packs/Day [...] Infection Onset Date 08/31/2019 09/17/2019 8:17 AM POSTAL SUPPORT EMPLOYEE RSV 08/31/2019 documented as of this encounter Home Health Visit - Care Plan Visit Type - SN Missed Visit Documenta tion Discipline - Pen[facility]entiary Status Goals Interventions Problem [...] Goal: Directive yes Shared: Durable Power of Alcoholism Worker Advance (DPOA), Health Care Power directives of Alcoholism Worker (HCPOA) and obtained, Living Will or if [...]
--- OUTSIDE RECORDS SUMMARY | 2020-03-16 13:50 | XMS REPORT | Encounter Summary ---
Author Author [facility] Organization [facility] Address Unknown Phone Unavailable Care Team Providers Care Welder Assistant Name Role Phone Ebony Sharp MD PCP Reason for Visit * HH Auth Cert Referred By Contact Referred To Contact Status Reason Specialty Diagnoses / Procedures Encounter Details Care Team Description Date Type Department Shannon Rangel LPN SN HOME VISIT 09/15/2019 Home Care Visit [facility] Home Care and page [facility] [address] [facility] [address] [place] [phone] Social History Date Tobacco Use Types Packs/Day [...] Comments Vital Sign 112/80 09/15/2019 1:19 PM GROOVER OPERATOR Blood Pressure 76 09/15/2019 1:19 PM GROOVER OPERATOR Pulse 36.3 C (97.4 F) 09/15/2019 1:19 PM GROOVER OPERATOR Temperature 14 09/15/2019 1:19 PM GROOVER OPERATOR Respiratory Rate 92% 09/15/2019 1:19 PM GROOVER OPERATOR Oxygen Saturation - - Inhaled Oxygen Concentration - - Weight - - Height - - Body Mass Index documented in this encounter Plan of Treatment Not on filedocumented as of this encounter Visit Diagnoses Not on filedocumented in this encounter Additional Health Concerns Last Indicated Resolved Time Infection Onset Date 08/31/2019 09/17/2019 8:17 AM GROOVER OPERATOR RSV 08/31/2019 documented as of this [...] Patient instructed on complications of diabetes mellitus: Content Development Manager Complications of Diabetes (Romulo). Patient response [...] Goal: Directive yes Shared: Durable Power of Transition Nurse Advance (DPOA), Health Care Power directives of Transition Nurse (HCPOA) and obtained, Living Will or if [...] Preference short of breath, go to [facility], visit family, Goal: cook own meals and bathe Shared: and dress without Patient/Ca assistance. regiver will progress towards goals and achieve them documented in this encounter
--- OUTSIDE RECORDS SUMMARY | 2020-03-16 13:50 | XMS REPORT | Encounter Summary ---
Author Author [facility] Organization [facility] Address Unknown Phone Unavailable Care Team Providers Care Cutter Machine Tender Name Role Phone Ebony Sharp MD PCP Encounter Details Care Team Description Date Type Department Rosy Herrmann, RN TELEPHONE ENCOUNTER 09/08/2019 Home Care Visit [facility] Home Care and [facility] [address] [facility] [address] [place] [address] Social History Date Tobacco [...] Infection Onset Date 08/31/2019 09/17/2019 8:17 AM CHILD LIFE ASSISTANT RSV 08/31/2019 documented as of this encounter
--- OUTSIDE RECORDS SUMMARY | 2020-03-16 13:50 | XMS REPORT | Encounter Summary ---
Author Author [facility] Organization [facility] Address Unknown Phone Unavailable Care Team Providers Care Candy Feeder Name Role Phone Eboyn Sharp MD PCP Encounter Details Care Team Description Date Type Department Delores Barton RN 09/07/2019 Telephone [facility] Primar y Care - [address] [facility] [address] [place], [place] [phone] Social History Date Tobacco Use Types Packs/Day [...] Lacy Ramirez LPN - 09/08/2019 9:38 AM MOBILE DEVICE DEVELOPER Called and spoke with Linsey and advised we would for HH. LE DEVICE DEVELOPER * Telephone Encounter - Ebony Sharp MD - 09/08/2019 7:11 AM MOBILE DEVICE DEVELOPER If seen within the last 90 days, it is OK to follow. She needs to have hospital follow up visit. LE DEVICE DEVELOPER * Telephone Encounter - Delores Barton RN - 09/07/2019 5:30 PM MOBILE DEVICE DEVELOPER [facility] called asking if you would follow HH orders. Last OV 06/13/2019 If approved triage call [phone] to give verbal order. LE DEVICE DEVELOPER documented in this encounter Plan of Treatment Not on filedocumented as of this encounter Visit Diagnoses Not on filedocumented in this encounter Additional Health Concerns Last Indicated Resolved Time Infection Onset Date 08/31/2019 09/17/2019 8:17 AM MOBILE DEVICE DEVELOPER RSV 08/31/2019 documented as of this encounter
--- OUTSIDE RECORDS SUMMARY | 2020-03-16 13:50 | XMS REPORT | Encounter Summary ---
Author Author [facility] Organization [facility] Address Unknown Phone Unavailable Care Team Providers Care Slip Caster Name Role Phone Ebony Sharp MD PCP Reason for Visit * HH Auth Cert Referred By Contact Referred To Contact Status Reason Specialty Diagnoses / Procedures Encounter Details Care Team Description Date Type Department Karen Levin RN SN OASIS START OF CARE 09/09/2019 Home Care Visit [facility] Home Care and page [facility] [address] [facility] [address] [place] [address] Social History Date Tobacco Use [...] Comments Vital Sign 130/76 09/09/2019 4:39 PM TENDER LABOR Blood Pressure 85 09/09/2019 4:39 PM TENDER LABOR Pulse 36.8 C (98.2 F) 09/09/2019 4:39 PM TENDER LABOR Temperature 18 09/09/2019 4:39 PM TENDER LABOR Respiratory Rate 90% 09/09/2019 4:39 PM TENDER LABOR Oxygen Saturation - - Inhaled Oxygen Concentration 95.3 kg (210 lb) 09/09/2019 4:39 PM TENDER LABOR Weight 152.4 cm (5') 09/09/2019 4:39 PM TENDER LABOR Height 41.01 09/09/2019 4:39 PM TENDER LABOR Body Mass Index documented in this encounter Progress Notes * Dale Harris RN - 09/09/2019 4:00 PM TENDER LABOR Could you assess if patient is interested in the telemonitor when you see her to [place]ry? ER LABOR documented in this encounter Plan of Treatment Not on filedocumented as of this encounter Visit Diagnoses Not on filedocumented in this encounter Additional Health Concerns Last Indicated Resolved Time Infection Onset Date 08/31/2019 09/17/2019 8:17 AM TENDER LABOR RSV 08/31/2019 documented as of this encounter Home Health Visit - Care Plan Visit Type - SN OASIS Start Of Care Discipline - Fci Status Goals Interventions Problem Descriptio Start Date n Active 1 goal linked to scheduled/documented intervention 1 goal intervention scheduled/documented in this visit SN COPD: Decreased 09/09/2019 Knowledge of Disease Management Disciplines: Fci Active 1 goal linked to scheduled/documented intervention 2 goal interventions scheduled/documented in this visit SN COPD: Decreased 09/09/2019 Knowledge of Oral and Inhaled Medications Disciplines: Fci Active 1 goal linked to scheduled/documented intervention 2 goal interventions scheduled/documented in this visit SN COPD: Decreased 09/09/2019 Knowledge of Secretion Management Disciplines: Fci Active 1 goal linked to scheduled/documented intervention 3 goal interventions scheduled/documented in this visit SN COPD: Shortness of 09/09/2019 Breath Disciplines: Fci Active 1 goal linked to scheduled/documented intervention 1 goal intervention scheduled/documented in this visit SN DM: Coping Alteration 09/09/2019 from Lifestyle Changes Disciplines: Fci Active 3 goals linked to scheduled/documented interventions [...] Deficit 09/09/2019 Related to Urinary Incontinence Disciplines: Fci Active 1 goal linked to scheduled/documented intervention 1 goal intervention scheduled/documented in this visit Shared: Advance 09/09/2019 Directives Disciplines: Fci, SHARED Active 1 goal linked to scheduled/documented intervention 2 goal interventions scheduled/documented in this visit Shared: Agency Parameters 09/09/2019 Disciplines: Fci, Physical Therapy, Occupational Therapy, [...] 09/09/2019 Communication and Provision of Supplies Disciplines: Fci, Physical Therapy, Occupational Therapy, SHARED [...] Patient instructed on complications of diabetes mellitus: [facility] Complications of Diabetes (oRmulo) and Diabetes and Heart Disease (Romulo). Patient [...] Goal: Directive yes Shared: Durable Power of Fermentation Operator Advance (DPOA), Health Care Power directives of Fermentation Operator (HCPOA) and obtained, Living Will or [...] without getting short of breath, go to [facility], visit family, cook own meals and bathe and dress without assistance. 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 Review [place] for completeness. To acknowledge/agree to these changes, [...]
--- OUTSIDE RECORDS SUMMARY | 2020-03-16 13:50 | XMS REPORT | Encounter Summary ---
Author Author [facility] Organization [facility] Address Unknown Phone Unavailable Care Team Providers Care Institutional Commodity Analyst Name Role Phone Ebony Sharp MD PCP Reason for Visit * HH Auth Cert Referred By Contact Referred To Contact Status Reason Specialty Diagnoses / Procedures Encounter Details Care Team Description Date Type Department Aury Louis RN SN OASIS TRANSFER W/OUT DC 09/18/2019 Home Care Visit [facility] Home Care and [facility] [address] [facility] [address] [place] [phone] Social History Date Tobacco Use Types Packs/Day [...] OASIS Transfer W/Out D c Discipline - Jail Status Goals Interventions Problem [...] Directive yes Shared: Durable Power of Director Private Advance (DPOA), Health Care Power directives of Director Private (HCPOA) and obtained, Living Will or if [...] Preference short of breath, go to s [facility], visit family, Goal: cook own meals and bathe Shared: and dress without Patient/Ca assistance. regiver will progress towards goals and achieve them documented in this encounter
--- OUTSIDE RECORDS SUMMARY | 2020-03-16 13:51 | XMS REPORT | Encounter Summary ---
Author Author [facility] Organization [facility] Address Unknown Phone Unavailable Care Team Providers Care Graduate Teaching Associate Name Role Phone Ebony Sharp MD PCP Reason for Visit * Auth/Cert Referred By Contact Referred To Contact Status Reason Specialty Diagnoses / Procedures Diagnoses Kidney stone Pyelonephritis Sepsis, due to unspecified organism, unspecified whether acute organ dysfunction present (HCC) Encounter Details Care Team Description Date Type Department Ariel Hernandez MD [address] [place] [address] [phone] Estefany Rodriguez RN [employer] [address] [place], [place] [id number] 08/30/2019 Anesthesia [facility] [address] [place], [place] [id number] Anesthesia Record Responsible Anesthesiologist Anesthesia Start Time [...] 2100 08/30/19 1608 by Thad Bruce RN [employer] Non-Surgic Date: 08/30/19; Time: 153; Placed By: 08/30/19 153 by Thad lyons Airway Trolley Car Operator; Device: LMA; Size: 4; Michael sarmiento RN [employer] Placement Verified By: Capnometry, Auscultation; Removal Date: [...] Ariel Hernandez MD - 08/30/2019 6:00 PM [employer] Anesthesia Post Evaluation Procedure(s):CYSTOSCOPY, WITH LEFT RETROGRADE [...] SpO2 98 % filed at 08/30/2019 1900 [employer] * Anesthesia Preprocedure Evaluation - Ariel Hernandez MD - 08/30/2019 3:01 PM [employer] Anesthesia Evaluation No history of anesthetic complications [...] and supraglottic airway device Plan discussed with [employer]. Anesthetic plan and risks discussed with patient. Post-operative analgesia: intended admin of post-op opioid Recovery plan: PACU Risk factors for PONV: female and non smoker PONV Risk: moderate Plan for PONV Prophylaxis to include: ondansetron Notes urosepsis [employer] documented in this encounter Plan of Treatment Not on filedocumented as of this encounter Visit Diagnoses Not on filedocumented in this encounter Administered Medications Action Date Dose Rate Site Medication Order MAR Action 08/30/2019 3:46 PM [employer] 25 mcg fentaNYL (SUBLIMAZE) injection Given Intravenous, As needed, Starting 08/30/19 at 1537, Anesthesia Intra-op 25 mcg Given 08/30/2019 3:37 PM [employer] 08/30/2019 3:51 PM [employer] lactated ringers infusion New Bag 50 mL/hr, Intravenous, Continuous, Starting 08/30/19 at 1506, For 48 hours, Pre-op New Bag 08/30/2019 3:24 PM [employer] 08/30/2019 3:30 PM [employer] 50 mg lidocaine (pf) (XYLOCAINE-MPF) 20 mg/mL Given (2 %) injection Intravenous, As needed, Starting 08/30/19 at 1530, Anesthesia Intra-op 08/30/2019 3:53 PM [employer] 4 mg ondansetron (ZOFRAN) injection Given Intravenous, As needed, Starting 08/30/19 at 1553, Anesthesia Intra-op 08/30/2019 3:30 PM [employer] 140 mg propofol (DIPRIVAN) injection Given Intravenous, As needed, Starting 08/30/19 at 1530, Anesthesia Intra-op documented in this encounter
--- OUTSIDE RECORDS SUMMARY | 2020-03-16 13:51 | XMS REPORT | Encounter Summary ---
Author Author [facility] Address Unknown Phone Unavailable Care Team Providers Care Sediment Remediation Consultant Name Role Phone Ebony Sharp MD PCP Reason for Referral * Home Health Care (Routine) Referred By Contact Referred To Contact Status Reason Specialty Diagnoses / Procedures Cecilia Israel DO [address] [place] [address] [facility] [address] [facility] [address] [place] [address] Closed Specialty Services Home Health Diagnoses Required [...] Date Type Department Dirk Valencia MD [address] [place], [place] [id number] Cecilia Israel DO [address] [place] [address] [phone] Chuckie Short MD [address] [place] [address] [phone] Kidney stone (Primary Dx); Pyelonephritis; Sepsis, due to unspecified organism, unspecified whether acute organ dysfunction present (HCC); Ureteral stone; Severe sepsis (HCC); Ureteral stone with hydronephrosis; Acute kidney injury (HCC); left Ureteral stone with hydronephrosis; Severe sepsis (HCC)/ pyelonephritis 08/30/2019 [facility] 09/07/2019 [address] [facility] [place] [address] Social History Date Tobacco Use Types Packs/Day [...] Comments Vital Sign 135/92 09/07/2019 12:11 PM HUMANITIES PROFESSOR Blood Pressure 79 09/07/2019 1:25 PM HUMANITIES PROFESSOR Pulse 36.7 C (98.1 F) 09/07/2019 12:11 PM HUMANITIES PROFESSOR Temperature 14 09/07/2019 1:25 PM HUMANITIES PROFESSOR Respiratory Rate 98% 09/07/2019 1:25 PM HUMANITIES PROFESSOR Oxygen Saturation - - Inhaled Oxygen Concentration 101 kg (222 lb 10.6 oz) 09/07/2019 6:04 AM HUMANITIES PROFESSOR Weight 152.4 cm (5') 08/30/2019 5:56 PM HUMANITIES PROFESSOR Height 43.49 08/30/2019 5:56 PM HUMANITIES PROFESSOR Body Mass Index documented in this encounter Discharge Summaries * Cecilia Israel DO - 09/07/2019 10:48 AM HUMANITIES PROFESSOR [facility] Hospitalist - Discharge Summary Patient Name: Isiah Do [facility] Account No: [id number] Date of : 1950 Date of Admission: [...] activity as tolerated Scheduled Follow Up Appointments/Studies [facility] Providers[facility] Future Appointments Date Time Provider Department Center 09/09/2019 To Be Determined Karen Levin RN [facility] None 10/04/2019 1:[address] [place] 10/11/2019 1:30 PM Darin Huber MD [facility] Additional Discharge Follow Up: Dr. Ebony Sharp [...] 2 CAPSULES BY MOUTH THREE TIMES DAILY [id number](VIT A,C-BIOTIN) ORAL Oral, Daily insulin glargine 100 [...] edited the final report. READING SITE: [facility] Cardiac Studies during this encounter: No [...] in this summary note. Cecilia Israel DO [facility] . NITIES PROFESSOR documented in this encounter Discharge Instructions * Attachments The following attachments cannot be sent through Care Everywhere.* FLUCONAZOLE ORAL TABLET (TAIWANESE) * Hydrochlorothiazide, HCTZ capsules or tablets ([place]) * Lactobacillus Oral formulations ([place]) * OXYCODONE HYDROCHLORIDE, ACETAMINOPHEN ORAL TABLET ([place]ESE) * PREDNISONE ORAL TABLET (TAIWANESE) * Pyelonephritis, Discharge Instructions for ([place]) * Urinary Tract Infections in Women ([place]) * Infection, Respiratory Syncytial Virus (RSV) ([place]) * KIDNEY STONE W/ COLIC (TAIWANESE) * Stents, Ureteral ([place]) documented in this encounter Medications at Time [...] A/vit Take by mouth 0 C/biotin/zinc/copper daily. ([id number],VIT A,C-BIOTIN, ORAL) 09/07/2019 09/13/2019 fluconazole (DIFLUCAN) Take [...] Cecilia Israel DO - 09/06/2019 5:22 PM HUMANITIES PROFESSOR [facility] Hospitalist - Progress Note Patient Name: Isiah Benítez Account No: [id number] Date of : 1950 Date of Admission: [...] re results (as indicated), current inpatient medications, guidance consultant notes and s upport staff notes [...] Add HCTZ Severe obesity (BMI >= 40) ([facility]) - Counseled on weight loss Acute vaginitis Fluconazole 150mg qOD X 3 days Type 2 diabetes mellitus with hyperglycemia, with long-term current use of insul in ([facility]) Resume home basal with level V SSI See my orders for additional details regarding this patients treatment plan. Room: [address] [place] [address] Diet: Diet-Low Fat/Chol, 2gm Na, Consistent Carbohydrate [...] prochlorpe razine, sodium chloride Cecilia Jhonatan, DO [facility] . NITIES PROFESSOR * Arabella Irwin RN ANP - 09/06/2019 9:25 AM HUMANITIES PROFESSOR [facility] Progress Note Date: 09/06/2019 Subjective: Sitting [...] CVA tenderness Assessment/Plan: Principal Problem: Severe sepsis ([facility])/ pyelonephritis Active Problems: Pyelonephritis left Ureteral stone with hydronephrosis COPD exacerbation ([facility])/ Acute on chronic hypoxemic respiratory failure Acute on chronic respiratory failure ([facility]) Type 2 diabetes mellitus with hyperglycemia, with long-term current use of ins ulin ([facility]) Hematemesis Acute vaginitis Severe obesity (BMI >= 40) ([facility]) Hypertension POD#7s/p cystoscopy andleft ureteral stent for5 [...] any questions/concerns. Arabella Irwin 09/06/2019 9:25 AM NITIES PROFESSOR * Cecilia Israel, - 09/05/2019 4:37 PM HUMANITIES PROFESSOR [facility] Hospitalist - Progress Note Patient Name: Isiah Benítez Account No: [id number] Date of : 1950 Date of Admission: [...] re results (as indicated), current inpatient medications, guidance consultant notes and s upport staff notes [...] Add HCTZ Severe obesity (BMI >= 40) ([facility]) - Counseled on weight loss Acute vaginitis Fluconazole 150mg qOD X 3 days Type 2 diabetes mellitus with hyperglycemia, with long-term current use of insul in ([facility]) Resume home basal with level V SSI See my orders for additional details regarding this patients treatment plan. Room: [address] [place] [address] Diet: Diet-Low Fat/Chol, 2gm Na, Consistent Carbohydrate [...] prochlorperazine, sodium ch loride Cecilia Israel DO [facility] . NITIES PROFESSOR * Arabella Irwin RN ANP - 09/05/2019 9:23 AM HUMANITIES PROFESSOR [facility] Progress Note Date: 09/05/2019 Subjective: Resting [...] CVA tenderness Assessment/Plan: Principal Problem: Severe sepsis ([facility])/ pyelonephritis Active Problems: Pyelonephritis left Ureteral stone with hydronephrosis COPD exacerbation ([facility])/ Acute on chronic hypoxemic respiratory failure Acute on chronic respiratory failure ([facility]) Type 2 diabetes mellitus with hyperglycemia, with long-term current use of ins ulin ([facility]) Hematemesis Acute vaginitis Severe obesity (BMI >= 40) ([facility]) POD#6s/p cystoscopy andleft ureteral stent for5 mm [...] from Hospitalist Arabella Irwin 09/05/2019 9:24 AM NITIES PROFESSOR * Arabella Irwin RN ANP - 09/04/2019 4:09 PM HUMANITIES PROFESSOR [facility] Progress Note Date: 09/04/2019 Subjective: Doing [...] with long-term current use of ins ulin ([facility]) Hematemesis Acute vaginitis Severe obesity (BMI >= 40) ([facility]) POD#5s/p cystoscopy andleft ureteral stent for5 mm [...] from Hospitalist Arabella Irwin 09/04/2019 4:09 PM NITIES PROFESSOR * Cecilia Israel DO - 09/04/2019 2:33 PM HUMANITIES PROFESSOR [facility] Hospitalist - Progress Note Patient Name: Isiah Do Board Account No: [id number] Date of : 1950 Date of Admission: [...] re results (as indicated), current inpatient medications, guidance consultant notes and s upport staff notes with pertainent findings noted within the assessment/plan. Assessment/Plan Ms. Isiah Benítez is a 69 y.o. female who was admitted on 08/30/2019 with Hemateme sis and Dizziness. Problems addressed with today's visit include: * Severe sepsis ([facility])/ pyelonephritis Sepsis resolved, s/p stent placement, ballard left in place, improving. - Will need to follow up with urology in 2-3 weeks COPD exacerbation ([facility])/ Acute on chronic hypoxemic respiratory failure +RSV - Taper steroids - Titrate off O2 as able Hematemesis Hb remains stable - Cont PPI Acute on chronic respiratory failure ([facility]) - Due to COPD & RSV left Ureteral stone with hydronephrosis S/p left ureteral stent placement by Urology on 08/30/19. F/u for definitive treat ment Flomax, strain urine Severe obesity (BMI >= 40) ([facility]) - Counseled on weight loss Acute vaginitis Fluconazole 150mg qOD X 3 days Type 2 diabetes mellitus with hyperglycemia, with long-term current use of insul in ([facility]) Resume home basal with level V SSI See my orders for additional details regarding this patients treatment plan. Room: [address] [place] [address] Diet: Diet-Low Fat/Chol, 2gm Na, Consistent Carbohydrate [...] prochlorperazine, sodium ch loride Cecilia Israel DO [facility] . NITIES PROFESSOR * Chuckie Short MD - 09/03/2019 12:52 PM HUMANITIES PROFESSOR [facility] Hospitalist - Progress Note Patient Name: Isiah Do Board Account No: [id number] Date of : 1950 Date of Admission: [...] with long-term current use of insul in ([facility]) Resume home basal with level V SSI See my orders for additional details regarding this patients treatment plan. Room: [address] [place] [address] Diet: Diet-Low Fat/Chol, 2gm Na, Consistent Carbohydrate [...] OR prochlorperazine, sodium chloride Chuckie Short MD [facility] . High med decision making. NITIES PROFESSOR * Judson Hernandez MD - 09/03/2019 10:09 AM HUMANITIES PROFESSOR [facility] Progress Note Date: 09/03/2019 Subjective: Doing [...] urine clear Assessment/Plan: Principal Problem: Severe sepsis ([facility])/ pyelonephritis Active Problems: Pyelonephritis left Ureteral stone with hydronephrosis COPD exacerbation ([facility])/ Acute on chronic hypoxemic respiratory failure Acute on chronic respiratory failure ([facility]) Type 2 diabetes mellitus with hyperglycemia, with long-term current use of ins ulin ([facility]) Hematemesis Acute vaginitis Severe obesity (BMI >= 40) ([facility]) POD#4s/p cystoscopy andleft ureteral stent for5 mm left proximal ureteral calculus, bilateral hydronephrosis, acute renal failure, andurosepsis - Currently afebrile and stable. Urine and blood cultures growing Steven. Con tinue Rocephin and Micafungin. Awaiting final culture results. - Renal sono 08/31 confirmed resolution of bilateral hydronephrosis. Business System Consultant remains normal at 0.8 today. Good UOP - Left flank pain/bladder pressure likely from stent/Ballard. Continue supportiv e care. Currently on Detrol LA and PRN Venetie/Fentanyl. Will plan VT in AM sandy . - Left URS as outpt once recovered - Continue inpatient care - Appreciate assistance from Hospitalist and ICU physicians Judson Hernandez 09/03/2019 10:09 AM NITIES PROFESSOR * Judson Hernandez MD - 09/02/2019 11:05 AM HUMANITIES PROFESSOR [facility] Progress Note Date: 09/02/2019 Subjective: No [...] urine clear Assessment/Plan: Principal Problem: Severe sepsis ([facility])/ pyelonephritis Active Problems: Pyelonephritis left Ureteral stone with hydronephrosis COPD exacerbation ([facility])/ Acute on chronic hypoxemic respiratory failure Acute on chronic respiratory failure ([facility]) Type 2 diabetes mellitus with hyperglycemia, with long-term current use of ins ulin ([facility]) Hematemesis Acute vaginitis Severe obesity (BMI >= 40) ([facility]) POD#3 s/p cystoscopy and left ureteral stent for 5 mm left proximal ureteral roslaind culus, bilateral hydronephrosis, acute renal failure, and urosepsis - Currently afebrile and stable. Urine and blood cultures growing Steven. Con tinue Rocephin and Micafungin. Awaiting final culture results. - Renal sono 08/31 confirmed resolution of bilateral hydronephrosis. Business System Consultant remains normal at 1.0 today. Good UOP -Left flank pain/bladder pressure likely from stent/Ballard. Continue supportive care. Currently on Detrol LA and PRN Venetie/Fentanyl -Left URS as outpt once recovered - Continue inpatient care - Appreciate assistance from Hospitalist and ICU physicians Judson Hernandez 09/02/2019 11:05 AM NITIES PROFESSOR * Chuckie Short MD - 09/02/2019 8:04 AM HUMANITIES PROFESSOR [facility] Hospitalist - Progress Note Patient Name: Isiah Do Board Account No: [id number] Date of : 1950 Date of Admission: [...] d/c ballard when urology allows. COPD exacerbation ([facility])/ Acute on chronic hypoxemic respiratory failure Improving [...] with long-term current use of insul in ([facility]) Resume home basal with level V SSI See my orders for additional details regarding this patients treatment plan. Room: [address] [place] [address] Diet: Diet-Low Fat/Chol, 2gm Na, Consistent Carbohydrate [...] Oral Daily enoxaparin 40 mg Subcutaneous Q24H [facility] fluticasone furoate-vilanterol 1 puff Inhalation Daily gabapentin [...] OR prochlorperazine, sodium chloride Chuckie Short MD [facility] . High med decision making. NITIES PROFESSOR * Chuckie Short MD - 09/01/2019 11:10 AM HUMANITIES PROFESSOR [facility] Hospitalist - Progress Note Patient Name: Isiah Do Board Account No: [id number] Date of : 1950 Date of Admission: [...] with today's visit include: * Severe sepsis ([facility])/ pyelonephritis Ureteral obstructing stone, s/p cystoscopy, stent [...] with long-term current use of insul in ([facility]) Resume home basal with level V SSI See my orders for additional details regarding this patients treatment plan. Room: [address] [place] [address] Diet: Diet-Low Fat/Chol, 2gm Na, Consistent Carbohydrate [...] OR prochlorperazine, sodium chloride Chuckie Short MD [facility] . High med decision making. NITIES PROFESSOR * Arabella Irwin RN ANP - 09/01/2019 8:50 AM HUMANITIES PROFESSOR [facility] Progress Note Subjective: Interval History: Main [...] left Ureteral stone with hydronephrosis COPD exacerbation ([facility])/ Acute on chronic hypoxemic respiratory failure Acute on chronic respiratory failure ([facility]) Type 2 diabetes mellitus with hyperglycemia, with long-term current use of ins ulin ([facility]) Hematemesis Acute vaginitis Severe obesity (BMI >= 40) ([facility]) LOS: 2 days POD#2 s/p cystoscopy and left ureteral stent for 5 mm left proximal ureteral rosalind culus, bilateral hydronephrosis, acute renal failure, and urosepsis - Renal U/S film and report reviewed. This confirmed resolution of bilateral hy dronephrosis. Business System Consultant improved to 1.1 and good UOP -Continue abx. Currently on Rocephin and Micafungin. Await cx's -Left flank pain likely from stent. Continue supportive care. Currently on Det rol LA and PRN Venetie/Fentanyl -Left URS as outpt once recovered - Continue inpatient care - Appreciate assistance from Hospitalist and ICU physicians Electronically signed by Arabella Irwin 09/01/2019 8:50 AM NITIES PROFESSOR Associated attestation - Judson Hernandez MD - 09/01/2019 10:15 PM HUMANITIES PROFESSOR I agree with Arabella Irwin NP's findings, assessment and plan as documented i n the note below. Judson Hernandez * Sharona English, PharmD - 08/31/2019 6:47 PM HUMANITIES PROFESSOR Provider Contacted: Chuckie Short Date of Contact: 08/31/19 Time of Contact: [phone] Results for orders placed or performed during [...] Marleen Cleaning MD - 08/31/2019 6:39 PM HUMANITIES PROFESSOR Ms. Isiah Benítez is a 69 y.o. [...] ICU. Marleen Snyder MD, 08/31/2019, 6:39 PM NITIES PROFESSOR * Chuckie Short MD - 08/31/2019 2:37 PM HUMANITIES PROFESSOR [facility] Hospitalist - Progress Note Patient Name: Isiah Benítez Account No: [id number] Date of : 1950 Date of Admission: [...] with today's visit include: * Severe sepsis ([facility])/ pyelonephritis Likely ureteral obstructing stone, s/p cystoscopy, stent placement, ballard left i n place, improving. COPD exacerbation ([facility])/ Acute on chronic hypoxemic respiratory failure Exp wheeze, still requiring bipap on and off, check RVP, increase steroids to 40 mg daily, add scheduled nebs. resp precuations for now. To remain in ICU till no t dependent on bipap. Hematemesis IV PPI BID for now. Trend cbc. 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 F/u for definitive treat ment Flomax, strain urine Acute vaginitis Presume candidal. Fluconazole 150mg qOD X 3 doses ordered. Type 2 diabetes mellitus with hyperglycemia, with long-term current use of insul in ([facility]) Resume home basal with level V SSI See my orders for additional details regarding this patients treatment plan. Room: [facility] [place] [address] Diet: Diet-Low Fat/Chol, 2gm Na, Consistent Carbohydrate [...] OR prochlorperazine, sodium chloride Chuckie Short MD [facility] . High med decision making. NITIES PROFESSOR * Janet Aragon MD - 08/31/2019 8:22 AM HUMANITIES PROFESSOR [facility] Progress Note Subjective: Interval History: ICU [...] urine cloudy Assessment/Plan: Principal Problem: Severe sepsis ([facility]) Active Problems: Pyelonephritis left Ureteral stone with hydronephrosis COPD (chronic obstructive pulmonary disease) ([facility]) Acute on chronic respiratory failure ([facility]) Type 2 diabetes mellitus with hyperglycemia, with long-term current use of ins ulin ([facility]) Hematemesis Acute vaginitis Sinus tachycardia Severe obesity (BMI >= 40) ([facility]) LOS: 1 day POD#1 s/p left ureteral [...] signed by Janet Aragon 08/31/2019 8:22 AM NITIES PROFESSOR * Ciaran Newman MD - 08/31/2019 2:36 AM HUMANITIES PROFESSOR Ms. Isiah Benítez is a 69 y.o. year-old female who presented on 08/30/2019 with Principal Problem: Severe sepsis ([facility]) Active Problems: Pyelonephritis left Ureteral stone with hydronephrosis COPD (chronic obstructive pulmonary disease) ([facility]) Acute on chronic respiratory failure ([facility]) Type 2 diabetes mellitus with hyperglycemia, with long-term current use of ins ulin ([facility]) Hematemesis Acute vaginitis Sinus tachycardia 2 PM [...] ICU. Ciaran Newman MD, 08/31/2019, 2:37 AM NITIES PROFESSOR * Courtney Brown, RT - 08/30/2019 6:31 PM HUMANITIES PROFESSOR Respiratory Care Services Initial RATE Note 08/30/2019 [...] No data recorded No data recorded The [employer] company providing the home oxygen/equipment is: No data recorded The patient states she does not use assistive ventilatory support devices at [facility]. Assistive ventilatory support devices include: No data recorded Settings are: No data recorded @LASTFLOW([id number]])@ No data recorded No data recorded No data recorded The [employer] company providing the home ventilator equipment is: [...] Home CPAP, BiPAP, Mechanical Ventilation Medical Protocol NITIES PROFESSOR documented in this encounter H&P Notes * Jun Licona MD - 08/30/2019 5:38 PM HUMANITIES PROFESSOR [facility] Hospitalist - History & Physical Patient Name: Isiah Benítez Account No: [id number] Date of : 1950 Date of Admission: [...] and ankle. COPD (chronic obstructive pulmonary disease) ([facility]) Depression Draining postoperative wound 08/08/2016 Endometriosis Essential hypertension Fractures [address] in Left ankle MATA (generalized anxiety disorder) 09/24/2015 Hernia of abdominal cavity Kidney stone Mixed hyperlipidemia 09/24/2015 Morbid obesity due to excess calories ([facility]) 07/10/2016 On home oxygen therapy 2L - usually needs if has an exerbation of COPD, or resp illness SASHA on CPAP Osteoarthritis Refusal of blood transfusions as patient is Jew Sleep apnea CPAP use Type 2 diabetes mellitus with hyperglycemia, with long-term current use of i nsulin ([facility]) 06/29/2016 Urinary calculi Urinary incontinence Urinary tract [...] Darin Huber MD; [place] [facility] [place]; Service: Urology; Laterality: Left; CYSTOSCOPY, RETROGRADE PYELOGRAM, URETEROSCOPY, LASERLITHOTRIPSY, WITH URETE RAL STENT PLACEMENT Left 08/02/2019 Procedure: CYSTOSCOPY, LEFT RETROGRADE PYELOGRAM, LEFT URETEROSCOPY, LASER LITH OTRIPSY, LEFT URETERAL STENT EXCHANGE; Surgeon: Darin Huber MD; [place] [facility] [place]; Service: Urology; Laterality: Left; HAND SURGERY Left 03/09/2019 [facility] REPAIR HYSTERECTOMY OOPHORECTOMY REMOVAL, HARDWARE, FOOT OR ANKLE Left 04/09/2017 Procedure: LEFT ANKLE REMOVAL OF HARDWARE WITH REVISION LEFT ANKLE ARTHRODESIS; Surgeon: Adelaida Olivas MD; [place] [facility] [place]; Service: Orthopedics; Later ality: Left; REPAIR, INCISIONAL HERNIA, LAPAROSCOPIC, USING MESH N/A 05/25/2018 Procedure: LAPAROSCOPIC INCISIONAL HERNIA REPAIR WITH MESH; Surgeon: Medardo Tate MD; [place] [facility] [place]; Service: General; Laterality: N/A; TONSILLECTOMY [...] joann es a day. vit A/vit C/biotin/zinc/copper ([id number],VIT A,C-BIOTIN, ORAL) Take by tanna th daily. [...] results (as indicated), current inpatient medications and windows desktop support notes with pertainent findings noted within the assessment/plan. I have personally re viewed and updated the patient's past medical history, past surgical history, fa carmelo history and social history as appropriate. Assessment/Plan Ms. Isiah Benítez is a 69 y.o. female who was admitted on 08/30/2019 with complain t of Hematemesis and Dizziness. * Severe sepsis ([facility]) Meets w HR, WBC, UTI, elevated lactate. [...] cbc. 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 Wean back to baseline 3L NC and nighttime CPAP for sasha COPD (chronic obstructive pulmonary disease) ([facility]) Was getting rx for copd exacerbation--taper steroids, continue bronchodilators, supportive care Sinus tachycardia Fluid resuscitate, resume home bb, monitor Acute vaginitis Presume candidal. Fluconazole 150mg qOD X 3 doses ordered. Type 2 diabetes mellitus with hyperglycemia, with long-term current use of insul in ([facility]) Resume home basal with level V SSI [...] as note d above. Jun Licona MD [facility] Medicine Division . NITIES PROFESSOR documented in this encounter Consult Notes * Delores Mckinley RN - 08/31/2019 5:30 PM HUMANITIES PROFESSOR Associated Order(s): CONSULT - VASCULAR ACCESS TEAM [...] Dressing oozing Delores Mckinley 08/31/2019 5:30 PM NITIES PROFESSOR * Arabella Irwin RN ANP - 08/30/2019 2:33 PM HUMANITIES PROFESSOR [facility] UROLOGY CONSULT NOTE Patient: Isaih Benítez Age: 69 y.o. : [...] mental status. Labs rev iewed. WBC 12.26K. Business System Consultant 1.2. Lactate 3.9. She had a fever [...] bleeding 08/08/2016 Allergic rhinitis Anxiety Bronchitis, chronic ([facility]) Cataract 2011, 2012 bilat cateract surgery Chronic pain disorder back, ribs, and ankle. COPD (chronic obstructive pulmonary disease) ([facility]) Depression Draining postoperative wound 08/08/2016 Endometriosis Essential hypertension Fractures [address] in Left ankle MATA (generalized anxiety disorder) 09/24/2015 Hernia of abdominal cavity Kidney stone Mixed hyperlipidemia 09/24/2015 Morbid obesity due to excess calories ([facility]) 07/10/2016 On home oxygen therapy 2L - usually needs if has an exerbation of COPD, or resp illness SASHA on CPAP Osteoarthritis Refusal of blood transfusions as patient is Jew Sleep apnea CPAP use Type 2 diabetes mellitus with hyperglycemia, with long-term current use of i nsulin ([facility]) 06/29/2016 Urinary calculi Urinary incontinence Urinary tract [...] NIGHT. E11.9 10 mL 5 insulin syringe (Semafone ULTRA-FINE) 0.3 mL 31 gauge x 5/16 [...] day. 30 tablet 0 vit A/vit C/biotin/zinc/copper (HBNB-XULZ-GBSM,VIT A,C-BIOTIN, ORAL) Take by mouth daily. ALLERGIES: [...] file Gets together: Not on file Attends taoist service: Not on file Active member of [...] 02:14 PM Positive (A) Negative Final Specific [place], UA Date/Time Value Ref Range Status 08/30/2019 [...] Hepatomegaly and hepatic steatosis. READING SITE: [facility] Xr Chest Single View Frontal Result Date: 08/30/2019 Mild bibasilar subsegmental atelectasis. No discrete focal consolidation. READING SITE: [facility] Xr Chest Single View Frontal Result Date: 08/28/2019 Stable bandlike opacity in the left midlung zone likely fibrosis/scarring. No discrete focal consolidation. READING SITE: [facility] ASSESSMENT/PLAN: 1. Left proximal ureteral calculus with [...] will continue to follow melissa dick in-house. NITIES PROFESSOR Associated attestation - Janet Aragon MD - 08/30/2019 3:29 PM HUMANITIES PROFESSOR Pt seen and films reviewed. Needs emergent [...] Dirk Valencia MD - 08/30/2019 12:21 PM HUMANITIES PROFESSOR Associated Order(s): Critical Care 08/30/2019 [facility] History Chief Complaint Patient [...] 09/24/2015 Morbid obesity due to excess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 [facility] 4065-01 Accessi on#: [id number] Procedure Requested: [id number] XR CHEST SINGLE VIEW FRONTAL Reason for [...] Rad Results In - 09/06/2019 1:42 PM HUMANITIES PROFESSOR Patient: ISIAH BENÍTEZ Sex#: F #: 1950 Jose#: [id number] Location: [address] [address]65[address]01 Procedure Requested: [id number] XR CHEST SINGLE VIEW FRONTAL Reason for [...] edited the final report. READING SITE: [facility] Performing Organization Address [facility] one Number LEVI * Basic Metabolic Panel (09/06/2019 3:28 AM HUMANITIES PROFESSOR) Only the most recent of 6 results within the time period is included. Sodium 137 133 - 147 MEQ/L [facility] [place] [facility] Potassium 3.7 3.5 - 5.3 MEQ/L [facility] [place] [facility] Chloride 93 (L) 96 - 112 MEQ/L [facility] [place] [facility] Carbon Dioxide 40 (H) 20 - 32 MEQ/L [facility] [place] [facility] Anion Gap 4 (L) 5 - 17 [facility] [place] [facility] Calcium 9.1 8.4 - 10.5 mg/dL [facility] [place] [facility] Glucose 111 (H) 70 - 100 mg/dL [facility] [place] [facility] Blood Urea 21 7 - 26 mg/dL [facility] Nitrogen [facility] [place] [facility] Creatinine 0.7 0.4 - 1.1 mg/dL [facility] [place] [facility] eGFR Female AA 100 60 - 200 [facility] mL/min/1.73sq [facility] [place] [facility] eGFR Female 83 60 - 200 [facility] Non-AA mL/min/1.73sq [facility] [place] [facility] Specimen Blood Performing Organization Address [facility] one Number [facility] [address] [place] [address] [facility] [facility] leonel's [facility] [address] [facility] [place], [place] [address] [place] [facility] * Complete Blood Count (09/06/2019 3:28 AM HUMANITIES PROFESSOR) Only the most recent of 6 results within the time period is included. WBC 9.44 4.00 - 11.00 TH/uL [facility] RBC 3.64 (L) 4.00 - 5.00 MIL/uL [facility] Hemoglobin 11.8 (L) 12.0 - 15.0 g/dL [facility] Hematocrit 36 36 - 45 % [facility] MCV 99 80 - 99 fL [facility] MCH 32 27 - 34 pg [facility] MCHC 33 32 - 36 % [facility] RDW 13.4 11.5 - 14.5 % [facility] Platelet Count 215 140 - 400 TH/uL [facility] MPV 10.3 9.4 - 12.3 fL [facility] Nucleated RBCs 0 0 - 0 /100 [facility] Specimen Blood Performing Organization Address City/State/Zipcode Ph one Number [facility] [address] [place] [facility] [place] [address] [facility] [address] [facility] [place] [address] [place] [facility] * Culture, Blood (09/04/2019 11:32 AM HUMANITIES PROFESSOR) Only the most recent of 4 results within the time period is included. Culture Result No Growth at 5 days [facility] Specimen Blood Narrative Performed At 20ml rh [facility] Performing Organization Address City/State/Zipcode Ph one Number [facility] [address] [place] [address] LABORATORIES [facility] [address] [place] [address] * Troponin (09/03/2019 9:00 PM HUMANITIES PROFESSOR) Only the most recent of 4 results within the time period is included. Troponin <0.01 0.00 - 0.03 ng/mL [facility] Comment: Cedric Ramos Troponin Value [place] [facility] Interpretation 0.00 - 0.03 Healthy 0.04 - 0.12 Increased Cardiac Risk >0.12 Myocardial Infarction Troponin may not become elevated until 6 to 8 hours after onset of symptoms. Specimen Blood Performing Organization Address City/State/Zipcode Ph one Number [facility] [address] [facility] [place] [address] [facility] [facility] [address] [facility] [place] [address] [place] [facility] * Electrocardiogram (ECG) (09/03/2019 8:23 PM HUMANITIES PROFESSOR) Only the most recent of 2 results within the time period is included. 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: [id number] : 1950 Requested By: CHUCKIE SHORT Order Number: [id number] Reading MD: Omar [place] Measurements Intervals [place] Rate: 92 P: 59 CA: 148 QRS: 38 QRSD: 102 T: 50 QT: 388 QTc: 481 Interpretive Statements SINUS RHYTHM Electronically Signed On 09-15-2019 11:2 3:15 HUMANITIES PROFESSOR by Omar [place] Procedure Note Interface, External Ris In - 09/15/2019 11:23 AM HUMANITIES PROFESSOR [facility] Test Date: 2019-09-03 Pat Name: ISIAH BENÍTEZ Department: SI Room: [facility] Gender: Female Turf Grower: [id number] : 1950 Requested By: CHUCKIE SHORT Order Number: [id number] Reading : Omar [place] Measurements Intervals [place] Rate: 92 P: 59 CA: 148 QRS: 38 QRSD: 102 T: 50 QT: 388 QTc: 481 Interpretive Statements SINUS RHYTHM Electronically Signed On 09-15-2019 11:23:15 HUMANITIES PROFESSOR by Omar [place] Performing Organization Address City/State/Zipcode Ph one Number TRACEMASTER * US Renal complete (08/31/2019 2:11 PM HUMANITIES PROFESSOR) Specimen Impressions Performed At Unremarkable renal ultrasound. LEVI No suspicious renal mass identified. No evidence of hydronephrosis. READING SITE: [facility] Narrative Performed At Patient: ISIAH BENÍTEZ Sex#: F #: 1950 Jose #: [id number] [place] [facility] [address] Accessi on#: [id number] Procedure Requested: [id number] US RENAL COMPLETE Reason for Exam: ARF, [...] Rad Results In - 08/31/2019 2:23 PM HUMANITIES PROFESSOR Patient: ISIAH BENÍTEZ Sex#: F #: 1950 Jose#: [id number] Location: [place] [address]- Procedure Requested: [id number] US RENAL COMPLETE Reason for Exam: ARF, [...] identified. No evidence of hydronephrosis. READING SITE: [facility] Organization Address City/[facility] Ph one Number L[facility] * Respiratory Panel by PCR (08/31/2019 11:35 AM HUMANITIES PROFESSOR) [facility] Adenovirus Not Detected Not Detected [facility] Bordetella Not Detected Not Detected [facility] pertussis [facility] Chlamydophila Not Detected Not Detected [facility] pneumoniae [facility] Coronavirus Not Detected Not Detected [facility] 229E [facility] Coronavirus Not Detected Not Detected [facility] HKU1 [facility] Coronavirus Not Detected Not Detected [facility] NL63 [facility] Coronavirus Not Detected Not Detected [facility] OC43 [facility] Human Not Detected Not Detected [facility] Metapneumovirus [facility] (hMPV) Human Not Detected Not Detected [facility] Rhinovirus [facility] Enterovirus Influenza A Not Detected Not Detected [facility] Influenza B Not Detected Not Detected [facility] Mycoplasma Not Detected Not Detected [facility] Parainfluenza Not Detected Not Detected [facility] ([facility]IV) 1 [facility] Lab Parainfluenza Not Detected Not Detected [facility] Virus (PIV) 2 Hospital Lab Parainfluenza Not Detected Not Detected [facility] Virus (PIV) 3 [facility] Parainfluenza Not Detected Not Detected [facility] Virus (PIV) 4 [facility] Respiratory Detected (A) Not Detected [facility] Syncytial Virus Hospital Lab Pl Source NASOPHAR [facility] Specimen Nasopharynx, Performing Organization Address City/State/Zipcode Ph one Number [facility] [address] [place] [address] LABORATORIES [facility] [address] [place] [address] * Lactate Venous WB (08/30/2019 10:51 PM HUMANITIES PROFESSOR) Only the most recent of 3 results within the time period is included. [facility] Lactate Venous 1.9 0.0 - 2.0 mmol/L [facility] Specimen Blood Narrative Performed At Reflex sepsis screen >2.0 [facility] Performing Organization Address City/[facility] Ph one Number [facility] [address] [place] [address] [facility] [address] [place] [address] [place] [facility] [address] [place] [address], [place] [phone] [facility] * Glucose (08/30/2019 4:48 PM HUMANITIES PROFESSOR) Glucose 304 (H) 70 - 100 mg/dL [facility] [place] [facility] Specimen Blood Narrative Performed At Reflex order. Previous POC GLUCOSE >500 [facility] Performing Organization Address City/State/[facility] Ph one Number [facility] [address] [place] [address] [facility] [address] [place] [address] [place] [facility] [address] [place] [address], [place] [phone] [facility] * FL Retrograde Urography in OR (08/30/2019 4:20 PM HUMANITIES PROFESSOR) Specimen Impressions Performed At FINDINGS/IMPRESSION: 1 intraoperative [...] BENÍTEZ Sex#: F #: 1950 Jose #: [id number] Location: [facility] MAIN OR NONE Procedure Requested: [id number] FL RETRO GRADE UROGRAPHY IN OR Reason for Exam: abdomen pain Exam Ordered: 08/30/2019 144 0 Exam Date/Time: 08/30/2019 1620 Begin exam date/time: 08/30/2019 1530 STUDY/PROCEDURE: Intraoperative fluoros copic procedure guidance INDICATION: Left ureteral calculus, hyd ronephrosis. COMPARISON: CT of the abdomen and pelvi s with contrast dated September 09, 2019. Procedure Note Interface, Rad Results In - 08/30/2019 7:33 PM HUMANITIES PROFESSOR Patient: ISIAH BENÍTEZ Sex#: F #: 1950 Jose#: [id number] Location: [facility] MAIN OR NONE Procedure Requested: [id number] FL RETROGRADE UROGRAPHY IN OR Reason for [...] procedure note for further evaluation. READING LOCATION: [facility] Performing Organization Address [facility] one Number LEVI * Culture, Urine (08/30/2019 3:54 PM HUMANITIES PROFESSOR) Only the most recent of 2 results within the time period is included. Isolate 1 >100,000 Cfu/ml (A) [facility] Isolate 1 Steven albicans (A) [facility] Isolate 1 In the absence of symptoms, [facility] Steven is generally Hospital Lab considered normal ciera. No therapy indicated unless high risk (, or neutropenic) or undergoing urologic procedure. If Ballard catheter present, remove or replace when able. (A) Specimen Urine - Urine Antibiotic Method Susceptibility Organism FLUCONAZOLE <=1: Sensitive Steven albicans VORICONAZOLE <=0.12: Sensitive Steven albicans Performing Organization Address City/[facility] one Number [address] [address] LABORATORIES [facility] [address] [place] [address] * Culture, Fungus (08/30/2019 3:54 PM HUMANITIES PROFESSOR) Isolate 1 Steven albicans (A) [facility] Specimen Urine - Urine Performing Organization Address [facility] Ph one Number [facility] [address] [place] [address] LABORATORIES [facility] [address] [place] [address] * Culture, AFB (08/30/2019 3:54 PM HUMANITIES PROFESSOR) AFB Stain No Acid Fast Bacilli seen on [facility] fluorescent stain. Hospital Lab Culture result No Acid fast bacilli isolated [facility] collado Mycobacteriolog at 6 weeks [facility] y Specimen Urine - Urine Performing Organization Address [facility] one Number [facility] [address] [place] [address] LABORATORIES [facility] [address] [place] [address] * Urinalysis Microscopic Only (08/30/2019 2:14 PM HUMANITIES PROFESSOR) Microscopic RBC 6 - 10 (A) 0 - 5 /hpf [facility] Urine [facility] [place] [facility] Microscopic WBC >40 (A) 0 - 5 /hpf [facility] Urine [facility] [place] [facility] Epithelial Absent Absent [facility] Cells [facility] [place] [facility] Hyaline Cast Large (A) Absent [facility] [place] [facility] Bacteria Absent Absent [facility] [place] [facility] WBC Clumps Present (A)Comment: WBC count Absent [facility] may be under-estimated due to [facility] the presence of WBC clumps. [facility] Yeast Present (A) Absent [facility] [place] [facility] Specimen Catheter Urine Performing Organization Address City/[facility] Cent[facility] Ph one Number [facility] [address] [place] [address] [facility] [address] [facility] [place] [address] [place] [facility] * Urinalysis Reflex (08/30/2019 2:14 PM HUMANITIES PROFESSOR) Appearance, Yellow [facility] Urine [facility] [place] [facility] Glucose Urine >=1000 (A) Negative mg/dL [facility] [place] [facility] Bilirubin Urine Negative Negative [facility] [place] [facility] Ketones Urine Negative Negative mg/dL [facility] [place] [facility] Specific >=1.030 1.001 - 1.030 [facility] [place], [facility] [place] [facility] Hemoglobin Large (A) Negative [facility] Urine [facility] [place] [facility] PH Urine 5.0 5.0 - 8.0 [facility] [place] [facility] Protein Urine 30 (A) Negative mg/dL [facility] Qual [facility] [place] [facility] Urobilinogen Negative Negative EU/dL [facility] Urine [facility] [place] [facility] Nitrite Urine Negative Negative [facility] [place] [facility] Leukocyte Positive (A) Negative [facility] Esterase [facility] [place] [facility] Specimen Catheter Urine Performing Organization Address City/State/[facility] Cent[facility]ode Ph one Number [facility] [address] [place] [address] [facility] [address] [place] [address] [place] [facility] * CT Abdomen Pelvis w contrast (08/30/2019 12:48 PM HUMANITIES PROFESSOR) Specimen Impressions Performed At 1. 5 mm proximal left ureteral stone and mild left-si ded hydronephrosis. LEVI No other nephroureterolithiasis is seen . 2. 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 Moderate urinary bladder distention. 3. Hepatomegaly and hepatic steatosis. READING SITE: [facility] Narrative Performed At Patient: ISIAH BENÍTEZ Sex#: F #: 1950 Jose #: [id number] Location: [facility] SED-07 Procedure Requested: [id number] CT ABDOM EN PELVIS W CONTRAST Reason [...] Rad Results In - 08/30/2019 1:09 PM HUMANITIES PROFESSOR Patient: ISIAH BENÍTEZ Sex#: F #: 1950 Jose#: [id number] Location: [facility] SED-07 Procedure Requested: [id number] CT ABDOMEN PELVIS W CONTRAST Reason for [...] 3. Hepatomegaly and hepatic steatosis. READING SITE: [facility] Address City/State/Zipcode Ph one Number LEVI * Influenza PCR (08/30/2019 12:29 PM HUMANITIES PROFESSOR) Influenza A PCR Not Detected Not Detected [facility] [place] [facility] Influenza B PCR Not Detected Not Detected [facility] [place] [facility] Source Nasopharynx [facility] [place] [facility] Specimen NASOPHARYNGEAL SWAB Performing Organization Address [facility] one Number [facility] [address] [place] [address] [facility] [address] [place] [address] [place] [facility] * ED PROCEDURE BASIC - CRITICAL CARE (08/30/2019 12:21 PM HUMANITIES PROFESSOR) Narrative Performed At Dirk Valencia MD 08/30/2019 [...] Blood, diagnostic (non-neoplasm screening) (08/30/2019 12:14 PM HUMANITIES PROFESSOR) Fecal Occult Negative Negative [facility] Blood C[facility] Ramos [place] [facility] Sample 1 08/30/2019 [facility] Collection Date Cedric Ramos [place] [facility] Specimen Stool Performing Organization Address [facility] one Number [facility] [address] [place] [address] [facility] [address] [place] [address] [place] [facility] * Magnesium (08/30/2019 12:13 PM HUMANITIES PROFESSOR) Magnesium 1.7 1.4 - 2.7 mg/dL [facility] [place] [facility] Specimen Blood Performing Organization Address [facility] one Number [facility] [address] [place] [address] [facility] [address] [place] [address] [place] [facility] * BNP (08/30/2019 12:13 PM HUMANITIES PROFESSOR) NTproBNP 340 pg/mL [facility] Comment: Cedric Ramos NT-proBNP Reference Ranges: [place] [facility] <50 yr <450 pg/mL 50-75 yr <900 pg/mL >75 yr <1800 pg/mL A cutoff value of 1200 pg/mL is recommended in patients 50 to 70 years of age with a GFR between 30 and 60. NT-proBNP is unreliable in patients with GFR <30. Specimen Blood Performing Organization Address [facility] one Number [facility] [address] [place] [address] [facility] [address] [place] [address] [place] [facility] * Lipase (08/30/2019 12:13 PM HUMANITIES PROFESSOR) Lipase 20 (L) 23 - 300 IU/L [facility] [place] [facility] Specimen Blood Performing Organization Address [facility] Ph one Number [facility] [address] [place] [address] [facility] [address] [place] [address] [place] [facility] * Comprehensive Metabolic Panel (08/30/2019 12:13 PM HUMANITIES PROFESSOR) Sodium 137 133 - 147 MEQ/L [facility] [place] [facility] Potassium 4.4 3.5 - 5.3 MEQ/L [facility] [place] [facility] Chloride 97 96 - 112 MEQ/L [facility] [place] [facility] Carbon Dioxide 27 20 - 32 MEQ/L [facility] [place] [facility] Anion Gap 14 5 - 17 [facility] [place] [facility] Calcium 9.2 8.4 - 10.5 mg/dL [facility] Glucose 439 (H) 70 - 100 mg/dL [facility] [place] [facility] Protein Total 8.8 (H) 6.0 - 8.2 g/dL [facility] Serum [facility] [place] [facility] Albumin 4.5 3.5 - 5.0 g/dL [facility] Alkaline 124 42 - 140 IU/L [facility] Phosphatase [facility] [place] [facility] Alanine 33 0 - 34 IU/L [facility] Aminotransferas [facility] e [place] [facility] Aspartate 36 15 - 46 IU/L [facility] Aminotransferas [facility] [facility] [place] [facility] Bilirubin Total 0.5 0.2 - 1.3 mg/dL [facility] [place] [facility] Blood Urea 26 7 - 26 mg/dL [facility] Creatinine 1.2 (H) 0.4 - 1.1 mg/dL [facility] [place] [facility] eGFR Female AA 54 (L) 60 - 200 [facility] mL/min/1.73sq [facility] eGFR Female 45 (L) 60 - 200 [facility] Non-AA mL/min/1.73sq [facility] Specimen Blood Performing Organization Address City/State/Zipcode Ph one Number [facility] [address] [facility] [place] [address] [place] [facility] [address] [facility] [place] [address] [place] [facility] * CBC and Diff (manual diff if necessary) (08/30/2019 12:13 PM HUMANITIES PROFESSOR) [facility] Signature WBC 12.26 (H) 4.00 - 11.00 TH/uL [facility] [place] [facility] RBC 4.67 4.00 - 5.00 MIL/uL [facility] [place] [facility] Hemoglobin 15.1 (H) 12.0 - 15.0 g/dL [facility] [place] [facility] Hematocrit 45 36 - 45 % [facility] [place] [facility] MCV 97 80 - 99 fL [facility] [place] [facility] MCH 32 27 - 34 pg [facility] [place] [facility] MCHC 33 32 - 36 % [facility] [place] [facility] RDW 13.1 11.5 - 14.5 % [facility] [place] [facility] Platelet Count 161 140 - 400 TH/uL [facility] [place] [facility] MPV 10.8 9.4 - 12.3 fL [facility] [place] [facility] Nucleated RBCs 0 0 - 0 /100 [facility] [place] [facility] % Neutrophils 87 (H) 45 - 78 % [facility] [place] [facility] %Lymphocytes 10 (L) 15 - 47 % [facility] [place] [facility] %Monocytes 3 0 - 12 % [facility] [place] [facility] %Eosinophils 0 0 - 7 % [facility] [place] [facility] %Basophils 0 0 - 2 % [facility] [place] [facility] # Granulocytes 10.67 (H) 1.7 - 6.8 TH/uL [facility] [place] [facility] # Lymphocytes 1.23 1.0 - 3.3 TH/uL [facility] [place] [facility] # Monocytes 0.37 0.2 - 0.9 TH/uL [facility] [place] [facility] # Eosinophils 0.00 0.0 - 0.4 TH/uL [facility] [place] [facility] # Basophils 0.05 0.0 - 0.1 TH/uL [facility] [place] [facility] Left Shift Present (A) Absent [facility] [place] [facility] RBC Morphology Normal Normal [facility] [place] [facility] Specimen Blood Performing Organization Address City/State/Zipcode Ph one Number [facility] [address] [place], [place] [id number] [place] [facility] [address] [facility] [place] [place] [address] [place] [facility] documented in this encounter Visit Diagnoses [...] cardiac dysrhythmias Severe obesity (BMI >= 40) ([facility]) Hypertension Unspecified essential hypertension documented in this encounter Admitting Diagnoses Diagnosis Pyelonephritis Unspecified pyelonephritis documented in this encounter Administered Medications Action Date Dose Rate Site Medication Order MAR Action acetaminophen (TYLENOL) suppository 325-650 mg 325-650 mg, Rectal, Every 6 hours PRN, mild pain (pain score 1-3), fever, Starting Wed08/30/19 at 1724, Administer if patient unable to tolerate oral medications., 08/30/2019 12:18 PM HUMANITIES PROFESSOR 1,000 mg acetaminophen (TYLENOL) tablet 1,000 mg [...] not exceed 2 GM/DAY., 09/02/2019 11:25 PM HUMANITIES PROFESSOR 2.5 mg albuterol (ACCUNEB) 2.5 mg/3 mL (0.083 Given %) nebulizer solution 2.5 mg 2.5 mg, Nebulization, Every 4 hours PRN , wheezing, shortness of air, Starting 08/30/19 at 1725 2.5 mg Given 09/01/2019 1:03 AM HUMANITIES PROFESSOR 09/05/2019 3:01 PM HUMANITIES PROFESSOR 2 mg alteplase (CATHFLO ACTIVASE) injection 2 Given mg 2 mg, Intra-Catheter, As needed, declotting central catheter or sluggish/occluded CVC line, Starting u 08/31/19 at 1724, Use 2 mg/2 mL to declot catheter as needed, Declot catheter per Central Venous Access Device, Declottin g procedure in Melissa Refrigerate. Reconstitute with 2.2 mL sterile water for injection, 08/31/2019 6:33 PM HUMANITIES PROFESSOR 15 mL aluminum-magnesium hydroxide-simethicone Given (MAALOX PLUS) 400-400-40 mg/5 mL suspension 15 mL 15 mL, Oral, Every 4 hours PRN, indigestion, Starting Wed08/30/19 at 1723, Avoid if estimated glomerular filtration rate (eGFR) is less than 20 mL/minute/1.73m2., 09/06/2019 8:51 PM HUMANITIES PROFESSOR 25 mg amitriptyline (ELAVIL) tablet 25 mg Given 25 mg, Oral, Nightly, First dose on Wed08/30/19 at 2100 25 mg Given 09/05/2019 8:09 PM HUMANITIES PROFESSOR 25 mg Given 09/04/2019 8:33 PM HUMANITIES PROFESSOR 09/06/2019 8:51 PM HUMANITIES PROFESSOR 40 mg atorvastatin (LIPITOR) tablet 40 mg Given 40 mg, Oral, Nightly, First dose on Wed08/30/19 at 2100 40 mg Given 09/05/2019 8:09 PM HUMANITIES PROFESSOR 40 mg Given 09/04/2019 8:33 PM HUMANITIES PROFESSOR benzocaine-menthol (CEPACOL) lozenge 1 lozenge 1 lozenge, Buccal, Every 1 hour prn, sore throat, Starting Wed08/30/19 at 172 4 09/07/2019 2:48 PM HUMANITIES PROFESSOR 100 mg benzonatate (TESSALON) capsule 100 mg Given 100 mg, Oral, 3 times daily PRN, cough, Starting Wed08/30/19 at 1753, DO NOT CRUSH OR CHEW., 100 mg Given 09/07/2019 10:06 AM HUMANITIES PROFESSOR 100 mg Given 09/05/2019 8:27 PM HUMANITIES PROFESSOR bisacodyl (DULCOLAX) suppository 10 mg 10 mg, Rectal, Daily PRN, constipation, constipation in patients who are NPO, i n patients who have nausea, or in patient s where there is any concern about ileus or bowel obstruction., Starting Wed08/30/19 at 1723, Hold these medications if patient has had loose stool or diarrhea within previous 24 hours., 09/06/2019 10:03 AM HUMANITIES PROFESSOR 2 g cefTRIAXone (ROCEPHIN) injection 2 g Given 2 g, Intravenous, Daily, Indications: SEPSIS, UTI, First dose on Wed08/30/19 a t 1745, If giving IV push, reconstitute each vial with 20 ml sterile water and give over 3-5 minutes If sterile water is unavailable, may use Bacteriostatic Water or Normal Saline for reconstitution , 2 g Given 09/05/2019 10:33 AM HUMANITIES PROFESSOR 2 g Given 09/04/2019 9:14 AM HUMANITIES PROFESSOR 09/07/2019 10:06 AM HUMANITIES PROFESSOR 20 mg citalopram (CeleXA) tablet 20 mg Given 20 mg, Oral, Daily, First dose on Wed08/30/19 at 1745 20 mg Given 09/06/2019 9:23 AM HUMANITIES PROFESSOR 20 mg Given 09/05/2019 8:33 AM HUMANITIES PROFESSOR 09/04/2019 3:35 AM HUMANITIES PROFESSOR 0.1 mg cloNIDine HCl (CATAPRES) tablet 0.1 mg Given 0.1 mg, Oral, Every 8 hours PRN, SBP > 180 and/or DBP > 100, Starting Wed09/04/19 at 0322 09/07/2019 2:29 PM HUMANITIES PROFESSOR 10 mg cyclobenzaprine (FLEXERIL) tablet 10 mg Given 10 mg, Oral, 3 times daily PRN, muscle spasms, Starting Wed08/30/19 at 1726 10 mg Given 09/07/2019 10:05 AM HUMANITIES PROFESSOR 10 mg Given 09/04/2019 8:50 PM HUMANITIES PROFESSOR dextrose (D50W) 50 % injection 25-50 mL [...] NOT CRUSH OR CHEW., 09/01/2019 8:06 AM HUMANITIES PROFESSOR 100 mg doxycycline hyclate (VIBRA-TABS) tablet Given 100 mg 100 mg, Oral, 2 times daily with meals, Indications: COPD, UTI with hx of staph epi, First dose on Wed08/30/19 at 1745, Give with food to reduce GI upset, 100 mg Given 08/31/2019 5:30 PM HUMANITIES PROFESSOR 100 mg Given 08/31/2019 11:13 AM HUMANITIES PROFESSOR 09/07/2019 10:03 AM HUMANITIES PROFESSOR 40 mg Right Lo wer Abdomen enoxaparin (LOVENOX) syringe 40 mg Given 40 mg, Subcutaneous, Every 24 hours scheduled, First dose on Wed08/30/19 at 1745 40 mg Left Lower Abdomen Given 09/06/2019 9:24 AM HUMANITIES PROFESSOR 40 mg Right Lower Abdomen Given 09/05/2019 8:32 AM HUMANITIES PROFESSOR 09/06/2019 11:08 AM HUMANITIES PROFESSOR 50 mcg fentaNYL (SUBLIMAZE) injection 25-50 mcg [...] therapy., 50 mcg Given 09/05/2019 8:09 PM HUMANITIES PROFESSOR 50 mcg Given 09/05/2019 10:30 AM HUMANITIES PROFESSOR 08/30/2019 2:26 PM HUMANITIES PROFESSOR 50 mcg fentaNYL (SUBLIMAZE) injection 50 mcg Given 50 mcg, Intravenous, Once, Wed08/30/19 a t 1349, For 1 dose, Administer over 2 minutes; max dose for IVP is 2 mcg/kg. Note: Limit does not apply to patients who may be tolerant to opioid therapy o r on continuous IV or PO opiate therapy., 08/30/2019 5:57 PM HUMANITIES PROFESSOR 150 mg fluconazole (DIFLUCAN) tablet 150 mg Given 150 mg, Oral, Every other day, Indications: VAGINAL CANDIDIASIS, First dose on Wed08/30/19 at 1800, For 3 doses 09/07/2019 11:40 AM HUMANITIES PROFESSOR 400 mg 100 mL/hr fluconazole in NaCl (iso-osm) (DIFLUCAN) New Bag IVPB 400 mg 400 mg, Intravenous, at 100 mL/hr, Daily, Indications: CANDIDEMIA, C. albicans sensitive to fluconazole, Firs t dose on Wed09/06/19 at 1000 400 mg 100 mL/hr New Bag 09/06/2019 10:13 AM HUMANITIES PROFESSOR 09/05/2019 10:41 AM HUMANITIES PROFESSOR 400 mg 100 mL/hr fluconazole in NaCl (iso-osm) (DIFLUCAN) New Bag IVPB 400 mg 400 mg, Intravenous, at 100 mL/hr, Once , Indications: CANDIDEMIA, 09/05/19 at 1000, For 1 dose, Bag 1 of 2 for total dose 800 mg, 09/05/2019 12:46 PM HUMANITIES PROFESSOR 400 mg 100 mL/hr fluconazole in NaCl (iso-osm) (DIFLUCAN) New Bag IVPB 400 mg 400 mg, Intravenous, at 100 mL/hr, Once , Indications: CANDIDEMIA, Tu09/05/19 at 1200, For 1 dose, Bag 2 of 2 for total of 800 mg, 09/07/2019 8:16 AM HUMANITIES PROFESSOR 1 puff fluticasone furoate-vilanterol (BREO Given ELLIPTA) 200-25 mcg/actuation inhaler 1 puff 1 puff, Inhalation, Daily, First dose o n Wed08/30/19 at 1745, Rinse mouth with water after use if patient not on vent. , 1 puff Given 09/06/2019 8:44 AM HUMANITIES PROFESSOR 1 puff Given 09/05/2019 7:49 AM HUMANITIES PROFESSOR 09/06/2019 10:03 AM HUMANITIES PROFESSOR 40 mg furosemide (LASIX) injection 40 mg Given 40 mg, Intravenous, Once, Wed09/06/19 a t 0945, For 1 dose 09/07/2019 10:07 AM HUMANITIES PROFESSOR 600 mg gabapentin (NEURONTIN) capsule 600 mg Given 600 mg, Oral, 3 times daily, First dose on Wed08/30/19 at 1745 600 mg Given 09/06/2019 8:51 PM HUMANITIES PROFESSOR 600 mg Given 09/06/2019 5:14 PM HUMANITIES PROFESSOR glucagon (GLUCAGEN) injection 1 mg 1 mg, Intramuscular, As needed, low blood sugar, low blood sugar, Starting Wed08/30/19 at 1725, Give if patient NPO and no IV access. May give IM or SQ in arm and turn patient on side. Reconstitute powder for injection by adding 1 mL of inspector assemblies and installations-supplied sterile diluent or sterile water for injection [...] for injection by adding 1 mL of inspector assemblies and installations-supplied sterile diluent o r sterile water for [...] less than 70 mg/dL., 09/07/2019 2:48 PM HUMANITIES PROFESSOR 200 mg guaiFENesin (ROBITUSSIN) 100 mg/5 mL Given syrup 200 mg 200 mg, Oral, Every 4 hours PRN, cough, Starting Wed08/30/19 at 1724 200 mg Given 09/07/2019 10:03 AM HUMANITIES PROFESSOR 200 mg Given 09/03/2019 3:05 AM HUMANITIES PROFESSOR 09/07/2019 10:05 AM HUMANITIES PROFESSOR 25 mg hydroCHLOROthiazide (HYDRODIURIL) tablet Given 25 mg 25 mg, Oral, Daily, First dose on Wed09/05/19 at 0900 25 mg Given 09/06/2019 9:24 AM HUMANITIES PROFESSOR 25 mg Given 09/05/2019 8:32 AM HUMANITIES PROFESSOR 09/04/2019 8:06 AM HUMANITIES PROFESSOR 1 tablet HYDROcodone-acetaminophen (NORCO) 5-325 Given mg [...] relief, 1 tablet Given 09/04/2019 3:11 AM HUMANITIES PROFESSOR 1 tablet Given 09/03/2019 2:11 PM HUMANITIES PROFESSOR 09/07/2019 10:03 AM HUMANITIES PROFESSOR 0.125 mg hyoscyamine (LEVSIN/SL) SL tablet 0.125 Given mg 0.125 mg, Sublingual, Every 4 hours, First dose on Wed09/06/19 at 1200, For bladder spasms, 0.125 mg Given 09/07/2019 4:25 AM HUMANITIES PROFESSOR 0.125 mg Given 09/07/2019 12:48 AM HUMANITIES PROFESSOR 08/30/2019 9:01 PM HUMANITIES PROFESSOR 20 Units Left Upp er Abdomen insulin glargine (LANTUS) injection 20 Given Units 20 Units, Subcutaneous, Nightly, First dose (after last modification) on Wed08/30/19 at 2100 09/06/2019 8:51 PM HUMANITIES PROFESSOR 25 Units Right Lo wer Abdomen insulin glargine (LANTUS) injection 25 Given Units 25 Units, Subcutaneous, Nightly, First dose (after last modification) on Wed08/31/19 at 2100 25 Units Right Arm Given 09/05/2019 8:06 PM HUMANITIES PROFESSOR 25 Units Left Lower Abdomen Given 09/04/2019 8:33 PM HUMANITIES PROFESSOR 09/07/2019 2:29 PM HUMANITIES PROFESSOR 9 Units Right Lo wer Abdomen insulin [...] Left Upper Abdomen Given 09/07/2019 6:23 AM HUMANITIES PROFESSOR 12 Units Right Upper Abdomen Given 09/07/2019 12:48 AM HUMANITIES PROFESSOR 08/30/2019 3:05 PM HUMANITIES PROFESSOR 5 Units Right Up per Abdomen insulin regular (HumuLIN R) injection 5 Given Units 5 Units, Subcutaneous, Once, Wed08/30/19 at 1506, For 1 dose, Pre-op 08/30/2019 3:05 PM HUMANITIES PROFESSOR 5 Units insulin regular (HumuLIN R) injection 5 Given Units 5 Units, Intravenous, Once, Wed08/30/19 at 1506, For 1 dose, Pre-op 08/30/2019 12:48 PM HUMANITIES PROFESSOR 100 mL iohexol (OMNIPAQUE) 350 mg iodine/mL Given injection 100 mL 100 mL, Intravenous, Once in imaging, contrast, Starting Wed08/30/19 at 1248, For 1 dose 09/05/2019 8:41 PM HUMANITIES PROFESSOR 3 mL ipratropium-albuterol (DUO-NEB) 0.5-3 Given mg/3 mL nebulizer solution 3 mL 3 mL, Inhalation, 4 times daily, First dose on Wed08/31/19 at 1115 3 mL Given 09/05/2019 1:40 PM HUMANITIES PROFESSOR 3 mL Given 09/05/2019 7:49 AM HUMANITIES PROFESSOR 09/07/2019 1:22 PM HUMANITIES PROFESSOR 3 mL ipratropium-albuterol (DUO-NEB) 0.5-3 Given mg/3 mL nebulizer solution 3 mL 3 mL, Inhalation, Every 4 hours, First dose (after last modification) on Wed09/06/19 at 0100 3 mL Given 09/07/2019 8:25 AM HUMANITIES PROFESSOR 3 mL Given 09/07/2019 3:51 AM HUMANITIES PROFESSOR 08/30/2019 2:39 PM HUMANITIES PROFESSOR 15 mg ketorolac (TORADOL) injection 15 mg Given 15 mg, Intravenous, Once, Wed08/30/19 at 1422, For 1 dose 09/07/2019 10:06 AM HUMANITIES PROFESSOR 2 capsules lactobacillus (CULTURELLE) 10 billion Given cell capsule 2 capsule, Oral, Daily, First dose on Wed08/30/19 at 1815 2 capsules Given 09/06/2019 9:23 AM HUMANITIES PROFESSOR 2 capsules Given 09/05/2019 8:33 AM HUMANITIES PROFESSOR magnesium sulfate IVPB 2 gram (premix) 2 [...] (if able to monitor)., 09/05/2019 8:06 PM HUMANITIES PROFESSOR 3 mg melatonin tablet 3 mg Given 3 mg, Oral, Nightly PRN, sleep, Startin g Wed08/30/19 at 1724, Give 3-4 hours prio r to planned bedtime., 09/07/2019 10:04 AM HUMANITIES PROFESSOR 100 mg metoprolol tartrate (LOPRESSOR) tablet Given 100 mg 100 mg, Oral, 2 times daily, First dose on Wed08/30/19 at 2100, Hold for sbp < 100 or hr < 50, 100 mg Given 09/06/2019 8:52 PM HUMANITIES PROFESSOR 100 mg Given 09/06/2019 9:23 AM HUMANITIES PROFESSOR 09/04/2019 8:10 AM HUMANITIES PROFESSOR 100 mg 105 mL/hr micafungin (MYCAMINE) 100 mg in sodium New Bag chloride 0.9 % (NS) 100 mL IVPB 100 mg, Intravenous, Administer over 60 Minutes, Every 24 hours scheduled, Indications: CANDIDEMIA, First dose on Ju 08/31/19 at 1915, Flush IV line with NS prior to administration REFRIGERATE PROTECT FROM LIGHT, 100 mg 105 mL/hr New Bag 09/03/2019 11:19 AM HUMANITIES PROFESSOR 100 mg 105 mL/hr New Bag 09/02/2019 9:05 AM HUMANITIES PROFESSOR miconazole nitrate (ALOE VESTA) 2 % ointment Topical, 3 times daily PRN, perineal or skin fold redness, Starting Wed08/30/19 at 1724, Consult wound care if no improvement within 3 days., ondansetron (ZOFRAN) injection 4 mg 4 mg, Intravenous, Every 6 hours PRN, nausea/vomiting (2nd line), Starting We d 08/30/19 at 1724 09/07/2019 2:29 PM HUMANITIES PROFESSOR 1 tablet oxyCODONE-acetaminophen (PERCOCET) 5-325 Given mg 1 tablet 1 tablet, Oral, Every 4 hours PRN, moderate pain (pain score 4-6), Startin g 09/04/19 at 1011, Do not exceed 4 GM/DAY of acetaminophen. If 65 or olde r do not exceed 3 GM/DAY. If chronic alcoholic do not exceed 2 GM/DAY., 1 tablet Given 09/07/2019 10:07 AM HUMANITIES PROFESSOR 1 tablet Given 09/07/2019 2:40 AM HUMANITIES PROFESSOR 09/07/2019 11:33 AM HUMANITIES PROFESSOR 40 mg pantoprazole (PROTONIX) injection 40 mg Given 40 mg, Intravenous, 2 times daily, Firs t dose on Wed08/30/19 at 2100, Dilute with 10 mL of 0.9% NaCl. DO NOT REFRIGERATE, 40 mg Given 09/06/2019 8:51 PM HUMANITIES PROFESSOR 40 mg Given 09/06/2019 9:23 AM HUMANITIES PROFESSOR 08/30/2019 2:20 PM HUMANITIES PROFESSOR 80 mg pantoprazole (PROTONIX) injection 80 mg Given 80 mg, Intravenous, Once, Wed08/30/19 at 1246, For 1 dose, Dilute with 10 mL of 0.9% NaCl. DO NOT REFRIGERATE, 09/07/2019 10:07 AM HUMANITIES PROFESSOR 100 mg phenazopyridine (PYRIDIUM) tablet 100 mg Given 100 mg, Oral, 3 times daily PRN, dysuria, Starting Wed09/06/19 at 0924 08/30/2019 2:36 PM HUMANITIES PROFESSOR 4.5 g 200 mL/hr piperacillin-tazobactam (ZOSYN) 4.5 [...] through a central line., 08/30/2019 5:58 PM HUMANITIES PROFESSOR 20 mg predniSONE (DELTASONE) tablet 20 mg Given 20 mg, Oral, Daily, First dose on Wed08/30/19 at 1800, For 3 doses, Give with food to reduce GI upset, 09/07/2019 10:06 AM HUMANITIES PROFESSOR 30 mg predniSONE (DELTASONE) tablet 30 mg Given 30 mg, Oral, Daily, Indications: prevention of cardiac transplant rejection, First dose (after last modification) on Wed09/05/19 at 0900, Give with food to reduce GI upset, 30 mg Given 09/06/2019 9:23 AM HUMANITIES PROFESSOR 30 mg Given 09/05/2019 8:33 AM HUMANITIES PROFESSOR 09/04/2019 8:04 AM HUMANITIES PROFESSOR 40 mg predniSONE (DELTASONE) tablet 40 mg Given 40 mg, Oral, Daily, First dose on Ju 08/31/19 at 1115, Give with food to reduc e GI upset, 40 mg Given 09/03/2019 8:51 AM HUMANITIES PROFESSOR 40 mg Given 09/02/2019 8:59 AM HUMANITIES PROFESSOR prochlorperazine (COMPAZINE) injection 2.5-5 mg 2.5-5 mg, [...] Starting Wed08/30/19 at 1724 08/30/2019 12:20 PM HUMANITIES PROFESSOR 1,000 mL 983.61 mL/hr sodium chloride 0.9% (NS) IV Bolus New Bag 1,000 mL, Intravenous, Administer over 61 Minutes, Once, Wed08/30/19 at 1134, For 1 dose 08/30/2019 6:07 PM HUMANITIES PROFESSOR 1,000 mL 983.61 mL/hr sodium chloride 0.9% (NS) IV Bolus New Bag 1,000 mL, Intravenous, Administer over 61 Minutes, Once, Wed08/30/19 at 1745, For 1 dose 08/31/2019 2:43 AM HUMANITIES PROFESSOR 1,000 mL 495.87 mL/hr sodium chloride 0.9% (NS) IV Bolus New Bag 1,000 mL, Intravenous, Administer over 121 Minutes, Once, [facility] 08/31/19 at 0300, For 1 dose 09/01/2019 6:01 AM HUMANITIES PROFESSOR 50 mL/hr 50 mL/hr sodium chloride 0.9% infusion New Bag 50 mL/hr, Intravenous, Continuous, Starting Wed08/30/19 at 1730, For 48 hours 50 mL/hr 50 mL/hr Rate/Dose Verify 08/31/2019 5:50 PM HUMANITIES PROFESSOR 50 mL/hr 50 mL/hr Rate/Dose Change 08/31/2019 3:30 PM HUMANITIES PROFESSOR 09/02/2019 2:35 AM HUMANITIES PROFESSOR 50 mL/hr 50 mL/hr sodium chloride 0.9% infusion New Bag 50 mL/hr, Intravenous, Continuous, Starting Wed09/01/19 at 1800, For 48 hours 50 mL/hr 50 mL/hr Continue Same Bag 09/01/2019 5:50 PM HUMANITIES PROFESSOR 09/07/2019 10:04 AM HUMANITIES PROFESSOR 0.4 mg tamsulosin (FLOMAX) 24 hr capsule 0.4 mg Given 0.4 mg, Oral, Daily, First dose on Wed08/30/19 at 1800, DO NOT CRUSH OR CHEW., 0.4 mg Given 09/06/2019 9:24 AM HUMANITIES PROFESSOR 0.4 mg Given 09/05/2019 8:32 AM HUMANITIES PROFESSOR 09/07/2019 10:04 AM HUMANITIES PROFESSOR 2 mg tolterodine (DETROL) tablet 2 mg Given 2 mg, Oral, 2 times daily, First dose o n 08/30/19 at 2100 2 mg Given 09/06/2019 9:51 PM HUMANITIES PROFESSOR 2 mg Given 09/06/2019 9:24 AM HUMANITIES PROFESSOR documented in this encounter Additional Health Concerns Last Indicated Resolved Time Infection Onset Date 08/30/2019 08/30/2019 1:09 PM HUMANITIES PROFESSOR Influenza - Rule Out 08/30/2019 08/31/2019 09/17/2019 8:17 AM HUMANITIES PROFESSOR RSV 08/31/2019 documented as of this encounter
--- OUTSIDE RECORDS SUMMARY | 2020-03-16 13:52 | XMS REPORT | Encounter Summary ---
Author Author [facility] Organization [facility] Address Unknown Phone Unavailable Care Team Providers Care Academic Advising Director Name Role Phone Ebony Sharp MD [...] Description Date [place] [address] [place] [address] CYSTOSCOPY, LEFT RETROGRADE PYELOGRAM, A ND LEFT URETERAL STENT INSERTION 08/30/2019 Surgery [facility] [address] [place], [place] [id number] Social History Date Tobacco Use Types Packs/Day [...] Comments Vital Sign 135/92 09/07/2019 12:11 PM COMMUNICATION ENGINEER Blood Pressure 79 09/07/2019 1:25 PM COMMUNICATION ENGINEER Pulse 36.7 C (98.1 F) 09/07/2019 12:11 PM COMMUNICATION ENGINEER Temperature 14 09/07/2019 1:25 PM COMMUNICATION ENGINEER Respiratory Rate 98% 09/07/2019 1:25 PM COMMUNICATION ENGINEER Oxygen Saturation - - Inhaled Oxygen Concentration 101 kg (222 lb 10.6 oz) 09/07/2019 6:04 AM COMMUNICATION ENGINEER Weight 152.4 cm (5') 08/30/2019 5:56 PM COMMUNICATION ENGINEER Height 43.49 08/30/2019 5:56 PM COMMUNICATION ENGINEER Body Mass Index documented in this encounter Discharge Summaries * JhonatanSueCecilia, - 09/07/2019 10:48 AM COMMUNICATION ENGINEER [facility] Hospitalist - Discharge Summary Patient Name: Isiah Benítez Account No: [id number] Date of : 1950 Date of Admission: [...] activity as tolerated Scheduled Follow Up Appointments/Studies ([facility]): Future Appointments Date Time Provider Department Center 09/09/2019 To Be Determined Karen Levin RN [facility] None 10/04/2019 1:[address] [place] 10/11/2019 1:30 PM Darin Huber MD [facility] Additional Discharge Follow Up: Dr. Ebony Sharp [...] 2 CAPSULES BY MOUTH THREE TIMES DAILY BIYX-AELR-XKEC(VIT A,C-BIOTIN) ORAL Oral, Daily insulin glargine 100 [...] or edited the final report. READING SITE: [facility] Cardiac Studies during this encounter: [...] this summary note. Cecilia Israel DO [facility] Medicine Division . UNICATION ENGINEER documented in this encounter Discharge Instructions * Attachments The following attachments cannot be sent through Care Everywhere.* FLUCONAZOLE ORAL TABLET (CENTRAL AFRICAN) * Hydrochlorothiazide, HCTZ capsules or tablets (Tongan) * Lactobacillus Oral formulations (Tongan) * OXYCODONE HYDROCHLORIDE, ACETAMINOPHEN ORAL TABLET (CENTRAL AFRICAN) * PREDNISONE ORAL TABLET (CENTRAL AFRICAN) * Pyelonephritis, Discharge Instructions for (Tongan) * Urinary Tract Infections in Women (Tongan) * Infection, Respiratory Syncytial Virus (RSV) (Tongan) * KIDNEY STONE W/ COLIC (CENTRAL AFRICAN) * Stents, Ureteral (Tongan) documented in this encounter Medications at Time [...] A/vit Take by mouth 0 C/biotin/zinc/copper daily. ([id number],VIT A,C-BIOTIN, ORAL) 09/07/2019 09/13/2019 fluconazole (DIFLUCAN) Take [...] * Cecilia Israel, - 09/06/2019 5:22 PM COMMUNICATION ENGINEER [facility] Patient Name: Isiah Do Board Account No: [id number] Date of : 1950 Date of Admission: [...] results (as indicated), current inpatient medications, oracle hyperion consultant notes and s upport staff notes with pertainent findings noted within the assessment/plan. Assessment/Plan Ms. Isiah Benítez is a 69 y.o. female who was admitted on 08/30/2019 with Hemateme sis and Dizziness. Problems addressed with today's visit include: * Severe sepsis ([facility])/ pyelonephritis Sepsis resolved, s/p stent placement, ballard left in place, improving. - Will need to follow up with urology in 2-3 weeks COPD exacerbation ([facility])/ Acute on chronic hypoxemic respiratory failure +RSV - Taper steroids q 3 days - Titrate off O2 as able Hematemesis Hb remains stable - Cont PPI Acute on chronic respiratory failure ([facility]) - Due to COPD & RSV left Ureteral stone with hydronephrosis S/p left ureteral stent placement by Urology on 08/30/19. F/u for definitive treat ment Flomax, strain urine Hypertension - Add HCTZ Severe obesity (BMI >= 40) ([facility]) - Counseled on weight loss Acute vaginitis Fluconazole 150mg qOD X 3 days Type 2 diabetes mellitus with hyperglycemia, with long-term current use of insul in ([facility]) Resume home basal with level V SSI See my orders for additional details regarding this patients treatment plan. Room: [address] [place] [address] Diet: Diet-Low Fat/Chol, 2gm Na, Consistent Carbohydrate [...] razine, sodium chloride Cecilia Israel DO [facility] Medicine Division . UNICATION ENGINEER * Arabella Irwin RN ANP - 09/06/2019 9:25 AM COMMUNICATION ENGINEER [facility] Urology Progress Note Date: 09/06/2019 [...] CVA tenderness Assessment/Plan: Principal Problem: Severe sepsis ([facility])/ pyelonephritis Active Problems: Pyelonephritis left Ureteral stone with hydronephrosis COPD exacerbation ([facility])/ Acute on chronic hypoxemic respiratory failure Acute on chronic respiratory failure ([facility]) Type 2 diabetes mellitus with hyperglycemia, with long-term current use of ins ulin ([facility]) Hematemesis Acute vaginitis Severe obesity (BMI >= 40) ([facility]) Hypertension POD#7s/p cystoscopy andleft ureteral stent for5 [...] any questions/concerns. Arabella Irwin 09/06/2019 9:25 AM UNICATION ENGINEER * Cecilia Israel DO - 09/05/2019 4:37 PM COMMUNICATION ENGINEER [facility] Hospitalist - Progress Note Patient Name: Isiah Do Board Account No: [id number] Date of : 1950 Date of Admission: [...] results (as indicated), current inpatient medications, oracle hyperion consultant notes and s upport staff notes with pertainent findings noted within the assessment/plan. Assessment/Plan Ms. Isiah Benítez is a 69 y.o. female who was admitted on 08/30/2019 with Hemateme sis and Dizziness. Problems addressed with today's visit include: * Severe sepsis ([facility])/ pyelonephritis Sepsis resolved, s/p stent placement, ballard left in place, improving. - Will need to follow up with urology in 2-3 weeks COPD exacerbation ([facility])/ Acute on chronic hypoxemic respiratory failure +RSV - Taper steroids q 3 days - Titrate off O2 as able Hematemesis Hb remains stable - Cont PPI Acute on chronic respiratory failure ([facility]) - Due to COPD & RSV left Ureteral stone with hydronephrosis S/p left ureteral stent placement by Urology on 08/30/19. F/u for definitive treat ment Flomax, strain urine Hypertension - Add HCTZ Severe obesity (BMI >= 40) ([facility]) - Counseled on weight loss Acute vaginitis Fluconazole 150mg qOD X 3 days Type 2 diabetes mellitus with hyperglycemia, with long-term current use of insul in ([facility]) Resume home basal with level V SSI See my orders for additional details regarding this patients treatment plan. Room: [address] [place] [address] Diet: Diet-Low Fat/Chol, 2gm Na, Consistent Carbohydrate [...] sodium ch loride Cecilia Israel DO [facility] Medicine Division . UNICATION ENGINEER * Arabella Irwin RN ANP - 09/05/2019 9:23 AM COMMUNICATION ENGINEER [facility] Urology Progress Note Date: 09/05/2019 [...] CVA tenderness Assessment/Plan: Principal Problem: Severe sepsis ([facility])/ pyelonephritis Active Problems: Pyelonephritis left Ureteral stone with hydronephrosis COPD exacerbation ([facility])/ Acute on chronic hypoxemic respiratory failure Acute on chronic respiratory failure ([facility]) Type 2 diabetes mellitus with hyperglycemia, with long-term current use of ins ulin ([facility]) Hematemesis Acute vaginitis Severe obesity (BMI >= 40) ([facility]) POD#6s/p cystoscopy andleft ureteral stent for5 mm [...] from Hospitalist Arabella Irwin 09/05/2019 9:24 AM UNICATION ENGINEER * Arabella Irwin RN ANP - 09/04/2019 4:09 PM COMMUNICATION ENGINEER [facility] Urology Progress Note Date: 09/04/2019 [...] generalized TTP Assessment/Plan: Principal Problem: Severe sepsis ([facility])/ pyelonephritis Active Problems: Pyelonephritis left Ureteral stone with hydronephrosis COPD exacerbation ([facility])/ Acute on chronic hypoxemic respiratory failure Acute on chronic respiratory failure ([facility]) Type 2 diabetes mellitus with hyperglycemia, with long-term current use of ins ulin ([facility]) Hematemesis Acute vaginitis Severe obesity (BMI >= 40) ([facility]) POD#5s/p cystoscopy andleft ureteral stent for5 mm [...] from Hospitalist Arabella Irwin 09/04/2019 4:09 PM UNICATION ENGINEER * Cecilia Israel DO - 09/04/2019 2:33 PM COMMUNICATION ENGINEER [facility] Hospitalist - Progress Note Patient Name: Isiah Benítez Account No: [id number] Date of : 1950 Date of Admission: [...] results (as indicated), current inpatient medications, oracle hyperion consultant notes and s upport staff notes [...] with urology in 2-3 weeks COPD exacerbation ([facility])/ Acute on chronic hypoxemic respiratory failure +RSV - Taper steroids - Titrate off O2 as able Hematemesis Hb remains stable - Cont PPI Acute on chronic respiratory failure ([facility]) - Due to COPD & RSV left Ureteral stone with hydronephrosis S/p left ureteral stent placement by Urology on 08/30/19. F/u for definitive treat ment Flomax, strain urine Severe obesity (BMI >= 40) ([facility]) - Counseled on weight loss Acute vaginitis Fluconazole 150mg qOD X 3 days Type 2 diabetes mellitus with hyperglycemia, with long-term current use of insul in ([facility]) Resume home basal with level V SSI See my orders for additional details regarding this patients treatment plan. Room: [address] [place] [address] Diet: Diet-Low Fat/Chol, 2gm Na, Consistent Carbohydrate [...] sodium ch loride Cecilia Israel DO [facility] Medicine Division . UNICATION ENGINEER * Chuckie Short MD - 09/03/2019 12:52 PM COMMUNICATION ENGINEER [facility] Hospitalist - Progress Note Patient Name: Isiah Beníetz Account No: [id number] Date of : 1950 Date of Admission: [...] details regarding this patients treatment plan. Room: [address] [place] [address] Diet: Diet-Low Fat/Chol, 2gm Na, Consistent Carbohydrate [...] prochlorperazine, sodium chloride Chuckie Short MD [facility] Medicine Division . High med decision making. UNICATION ENGINEER * Judson Hernandez MD - 09/03/2019 10:09 AM COMMUNICATION ENGINEER [facility] Urology Progress Note Date: 09/03/2019 [...] respiratory failure Acute on chronic respiratory failure ([facility]) Type 2 diabetes mellitus with hyperglycemia, with long-term current use of ins ulin ([facility]) Hematemesis Acute vaginitis Severe obesity (BMI >= 40) ([facility]) POD#4s/p cystoscopy andleft ureteral stent for5 mm left proximal ureteral calculus, bilateral hydronephrosis, acute renal failure, andurosepsis - Currently afebrile and stable. Urine and blood cultures growing Steven. Con tinue Rocephin and Micafungin. Awaiting final culture results. - Renal sono 08/31 confirmed resolution of bilateral hydronephrosis. Anode Crew Supervisor remains normal at 0.8 today. Good UOP - Left flank pain/bladder pressure likely from stent/Ballard. Continue supportiv e care. Currently on Detrol LA and PRN [place]/Fentanyl. Will plan VT in AM sandy . - Left URS as outpt once recovered - Continue inpatient care - Appreciate assistance from Hospitalist and ICU physicians Judson Hernandez 09/03/2019 10:09 AM UNICATION ENGINEER * Judson Hernandez MD - 09/02/2019 11:05 AM COMMUNICATION ENGINEER [facility] Urology Progress Note Date: 09/02/2019 [...] urine clear Assessment/Plan: Principal Problem: Severe sepsis ([facility])/ pyelonephritis Active Problems: Pyelonephritis left Ureteral stone with hydronephrosis COPD exacerbation ([facility])/ Acute on chronic hypoxemic respiratory failure Acute on chronic respiratory failure ([facility]) Type 2 diabetes mellitus with hyperglycemia, with long-term current use of ins ulin ([facility]) Hematemesis Acute vaginitis Severe obesity (BMI >= 40) ([facility]) POD#3 s/p cystoscopy and left ureteral stent for 5 mm left proximal ureteral rosalind culus, bilateral hydronephrosis, acute renal failure, and urosepsis - Currently afebrile and stable. Urine and blood cultures growing Steven. Con tinue Rocephin and Micafungin. Awaiting final culture results. - Renal sono 08/31 confirmed resolution of bilateral hydronephrosis. Anode Crew Supervisor remains normal at 1.0 today. Good UOP -Left flank pain/bladder pressure likely from stent/Ballard. Continue supportive care. Currently on Detrol LA and PRN [place]/Fentanyl -Left URS as outpt once recovered - Continue inpatient care - Appreciate assistance from Hospitalist and ICU physicians Judson Hernandez 09/02/2019 11:05 AM UNICATION ENGINEER * Chuckie Short MD - 09/02/2019 8:04 AM COMMUNICATION ENGINEER [facility] Patient Name: Isiah Benítez Account No: [id number] Date of : 1950 Date of Admission: [...] details regarding this patients treatment plan. Room: [address] [place] [address] Diet: Diet-Low Fat/Chol, 2gm Na, Consistent Carbohydrate [...] prochlorperazine, sodium chloride Christopher Short, MD [facility] Medicine Division . [facility] decision making. UNICATION ENGINEER * Chuckie Short MD - 09/01/2019 11:10 AM COMMUNICATION ENGINEER [facility] Hospitalist - Progress Note Patient Name: Isiah Benítez Account No: [id number] Date of : 1950 Date of Admission: [...] details regarding this patients treatment plan. Room: [address] [place] [address] Diet: Diet-Low Fat/Chol, 2gm Na, Consistent Carbohydrate [...] prochlorperazine, sodium chloride Chuckie Short MD [facility] Medicine Division . High med decision making. UNICATION ENGINEER * Arabella Irwin RN ANP - 09/01/2019 8:50 AM COMMUNICATION ENGINEER [facility] Urology Progress Note Subjective: Interval [...] urine cloudy Assessment/Plan: Principal Problem: Severe sepsis ([facility])/ pyelonephritis Active Problems: Pyelonephritis left Ureteral stone with hydronephrosis COPD exacerbation ([facility])/ Acute on chronic hypoxemic respiratory failure Acute on chronic respiratory failure ([facility]) Type 2 diabetes mellitus with hyperglycemia, with long-term current use of ins ulin ([facility]) Hematemesis Acute vaginitis Severe obesity (BMI >= 40) ([facility]) LOS: 2 days POD#2 s/p cystoscopy and left ureteral stent for 5 mm left proximal ureteral rosalind culus, bilateral hydronephrosis, acute renal failure, and urosepsis - Renal U/S film and report reviewed. This confirmed resolution of bilateral hy dronephrosis. Anode Crew Supervisor improved to 1.1 and good UOP -Continue abx. Currently on Rocephin and Micafungin. Await cx's -Left flank pain likely from stent. Continue supportive care. Currently on Det rol LA and PRN [place]/Fentanyl -Left URS as outpt once recovered - Continue inpatient care - Appreciate assistance from Hospitalist and ICU physicians Electronically signed by Arabella Irwin 09/01/2019 8:50 AM UNICATION ENGINEER Associated attestation - Judson Hernandez MD - 09/01/2019 10:15 PM COMMUNICATION ENGINEER I agree with Arabella Irwin NP's findings, assessment and plan as documented i n the note below. Judson Hernandez * Sharona English PharmD - 08/31/2019 6:47 PM COMMUNICATION ENGINEER Provider Contacted: Chuckie Short Date of Contact: 08/31/19 Time of Contact: [phone] Results for orders placed or performed during [...] Marleen Cleaning MD - 08/31/2019 6:39 PM COMMUNICATION ENGINEER Ms. Isiah Benítez is a 69 y.o. [...] ICU. Marleen Snyder MD, 08/31/2019, 6:39 PM UNICATION ENGINEER * Chuckie Short MD - 08/31/2019 2:37 PM COMMUNICATION ENGINEER [facility] Hospitalist - Progress Note Patient Name: Isiah Benítez Account No: [id number] Date of : 1950 Date of Admission: [...] cbc. 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 Room: [address] [place] [address] Diet: Diet-Low Fat/Chol, 2gm Na, Consistent Carbohydrate [...] prochlorperazine, sodium chloride Chuckie Short MD [facility] Medicine Division . High med decision making. UNICATION ENGINEER * Janet Aragon MD - 08/31/2019 8:22 AM COMMUNICATION ENGINEER [facility] Urology Progress Note Subjective: Interval [...] urine cloudy Assessment/Plan: Principal Problem: Severe sepsis ([facility]) Active Problems: Pyelonephritis left Ureteral stone with hydronephrosis COPD (chronic obstructive pulmonary disease) ([facility]) Acute on chronic respiratory failure ([facility]) Type 2 diabetes mellitus with hyperglycemia, with long-term current use of ins ulin ([facility]) Hematemesis Acute vaginitis Sinus tachycardia Severe obesity (BMI >= 40) ([facility]) LOS: 1 day POD#1 s/p left ureteral [...] from my standpoint Electronically signed by Janet Argaon 08/31/2019 8:22 AM UNICATION ENGINEER * Ciaran Newman MD - 08/31/2019 2:36 AM COMMUNICATION ENGINEER Ms. Isiah Benítez is a 69 y.o. year-old female who presented on 08/30/2019 with Principal Problem: Severe sepsis ([facility]) Active Problems: Pyelonephritis left Ureteral stone with hydronephrosis COPD (chronic obstructive pulmonary disease) ([facility]) Acute on chronic respiratory failure ([facility]) Type 2 diabetes mellitus with hyperglycemia, with long-term current use of ins ulin ([facility]) Hematemesis Acute vaginitis Sinus tachycardia 2 PM [...] ICU. Ciaran Newman MD, 08/31/2019, 2:37 AM UNICATION ENGINEER * Courtney Brown, RT - 08/30/2019 6:31 PM COMMUNICATION ENGINEER [facility] Initial RATE Note 08/30/2019 [...] No data recorded No data recorded The [email or web address] company providing the home oxygen/equipment is: No data recorded The patient states she does not use assistive ventilatory support devices at [facility]. Assistive ventilatory support devices include: No data recorded Settings are: No data recorded @[facility]([id number]])@ No data recorded No data recorded No data recorded The [employer] providing the home ventilator equipment is: No [...] Home CPAP, BiPAP, Mechanical Ventilation Medical Protocol UNICATION ENGINEER documented in this encounter H&P Notes * Jun Licona MD - 08/30/2019 5:38 PM COMMUNICATION ENGINEER [facility] Hospitalist - History & Physical Patient Name: Isiah Benítez Account No: [id number] Date of : 1950 Date of Admission: [...] bleeding 08/08/2016 Allergic rhinitis Anxiety Bronchitis, chronic ([facility]) Cataract 2011, 2012 bilat cateract surgery Chronic pain disorder back, ribs, and ankle. COPD (chronic obstructive pulmonary disease) ([facility]) Depression Draining postoperative wound 08/08/2016 Endometriosis Essential hypertension Fractures [address] in Left ankle MATA (generalized anxiety disorder) 09/24/2015 Hernia of abdominal cavity Kidney stone Mixed hyperlipidemia 09/24/2015 Morbid obesity due to excess calories ([facility]) 07/10/2016 On home oxygen therapy 2L - usually needs if has an exerbation of COPD, or resp illness SASHA on CPAP Osteoarthritis Refusal of blood transfusions as patient is Spiritism Sleep apnea CPAP use Type 2 diabetes mellitus with hyperglycemia, with long-term current use of i nsulin ([facility]) 06/29/2016 Urinary calculi Urinary incontinence Urinary tract [...] EXTRACTION, AND LEFT URETERAL STENT PLACEMENT; Surgeon: Darni Huber MD; Location: [facility] Main OR; Service: [...] joann es a day. vit A/vit C/biotin/zinc/copper ([id number],VIT A,C-BIOTIN, ORAL) Take by tanna th daily. [...] results (as indicated), current inpatient medications and medical support assistant notes with pertainent findings noted within the assessment/plan. I have personally re viewed and updated the patient's past medical history, past surgical history, fa carmelo history and social history as appropriate. Assessment/Plan Ms. Isiah Benítez is a 69 y.o. female who was admitted on 08/30/2019 with complain t of Hematemesis and Dizziness. * Severe sepsis ([facility]) Meets w HR, WBC, UTI, elevated lactate. [...] cbc. 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 Wean back to baseline 3L NC and nighttime CPAP for sasha COPD (chronic obstructive pulmonary disease) ([facility]) Was getting rx for copd exacerbation--taper steroids, [...] note d above. Jun Licona MD [facility] Medicine Division . UNICATION ENGINEER documented in this encounter Consult Notes * Delores Mckinley RN - 08/31/2019 5:30 PM COMMUNICATION ENGINEER Associated Order(s): CONSULT - VASCULAR ACCESS TEAM [...] Dressing oozing Delores Mckinley 08/31/2019 5:30 PM UNICATION ENGINEER * Arabella Irwin RN ANP - 08/30/2019 2:33 PM COMMUNICATION ENGINEER [facility] UROLOGY CONSULT NOTE Patient: Isiah [...] mental status. Labs rev iewed. WBC 12.26K. Anode Crew Supervisor 1.2. Lactate 3.9. She had a fever [...] and ankle. COPD (chronic obstructive pulmonary disease) ([facility]) Depression Draining postoperative wound 08/08/2016 Endometriosis Essential [...] Refusal of blood transfusions as patient is Spiritism Sleep apnea CPAP use Type 2 diabetes [...] STENT PLACEMENT; Surgeon: Darin Huber MD; Location: [facility]; Service: Urology; Laterality: Left; CYSTOSCOPY, RETROGRADE PYELOGRAM, URETEROSCOPY, LASERLITHOTRIPSY, WITH URETE RAL STENT PLACEMENT Left 08/02/2019 Procedure: CYSTOSCOPY, LEFT RETROGRADE PYELOGRAM, LEFT URETEROSCOPY, LASER LITH OTRIPSY, LEFT URETERAL STENT EXCHANGE; Surgeon: Darin Huber MD; Location: [facility]; Service: Urology; Laterality: Left; HAND [...] NIGHT. E11.9 10 mL 5 insulin syringe ([employer] ULTRA-FINE) 0.3 mL 31 gauge x 5/16 [...] day. 30 tablet 0 vit A/vit C/biotin/zinc/copper ([id number],VIT A,C-BIOTIN, ORAL) Take by mouth daily. ALLERGIES: [...] 02:14 PM Positive (A) Negative Final Specific [place], UA Date/Time Value Ref Range Status 08/30/2019 [...] 3. Hepatomegaly and hepatic steatosis. READING SITE: [facility] Xr Chest Single View Frontal Result Date: 08/30/2019 Mild bibasilar subsegmental atelectasis. No discrete focal consolidation. READING SITE: [facility] Xr Chest Single View Frontal Result Date: 08/28/2019 Stable bandlike opacity in the left midlung zone likely fibrosis/scarring. No discrete focal consolidation. READING SITE: [facility] ASSESSMENT/PLAN: 1. Left proximal ureteral calculus [...] We will continue to follow ile in-house. UNICATION ENGINEER Associated attestation - Janet Aragon MD - 08/30/2019 3:29 PM COMMUNICATION ENGINEER Pt seen and films reviewed. Needs emergent [...] Dirk Valencia MD - 08/30/2019 12:21 PM COMMUNICATION ENGINEER Associated Order(s): Critical Care 08/30/2019 [facility] History Chief Complaint Patient presents [...] bleeding 08/08/2016 Allergic rhinitis Anxiety Bronchitis, chronic ([facility]) Cataract 2011, 2012 bilat cateract surgery Chronic pain disorder back, ribs, and ankle. COPD (chronic obstructive pulmonary disease) ([facility]) Depression Draining postoperative wound 08/08/2016 Endometriosis Essential hypertension Fractures [address] in Left ankle MATA (generalized anxiety disorder) 09/24/2015 Hernia of abdominal cavity Kidney stone Mixed hyperlipidemia 09/24/2015 Morbid obesity due to excess calories ([facility]) 07/10/2016 On home oxygen therapy 2L - usually needs if has an exerbation of COPD, or resp illness SASHA on CPAP Osteoarthritis Refusal of blood transfusions as patient is Spiritism Sleep apnea CPAP use Type 2 diabetes mellitus with hyperglycemia, with long-term current use of i nsulin ([facility]) 06/29/2016 Urinary calculi Urinary incontinence Urinary tract [...] STENT PLACEMENT; Surgeon: Darin Huber MD; [place] [facility]; Service: Urology; Laterality: Left; CYSTOSCOPY, RETROGRADE PYELOGRAM, URETEROSCOPY, LASERLITHOTRIPSY, WITH URETE RAL STENT PLACEMENT Left 08/02/2019 Procedure: CYSTOSCOPY, LEFT RETROGRADE PYELOGRAM, LEFT URETEROSCOPY, LASER LITH OTRIPSY, LEFT URETERAL STENT EXCHANGE; Surgeon: Darin Huber MD; Location[place] [facility]; Service: Urology; Laterality: Left; HAND [...] Negative Ketones Urine Negative Negative mg/dL Specific [place], UA >=1.030 1.001 - 1.030 Hemoglobin Urine [...] 3. Hepatomegaly and hepatic steatosis. READING SITE: [facility] XR Chest single view frontal Final Result Mild bibasilar subsegmental atelectasis. No discrete focal consolidation. READING SITE: [facility] Retrograde Urography in OR (Results Pending) [...] Disposition Admit Dirk Valencia MD 08/30/19 1503 UNICATION ENGINEER * Cecilia Clifton RN - 08/30/2019 11:18 AM COMMUNICATION ENGINEER Bed: [facility] Expected date: Expected time: Means of arrival: Comments: amr UNICATION ENGINEER documented in this encounter Miscellaneous Notes * Hospital Course - Cecilia Israel DO - 09/08/2019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 FRONTAL Reason for [...] or edited the final report. READING SITE: [facility] Organization Address City/State/Zipcode Ph one Number [place] * Basic Metabolic Panel (09/06/2019 3:28 AM COMMUNICATION ENGINEER) Only the most recent of 6 results within the time period is included. Sodium 137 133 - 147 MEQ/L [facility] Potassium 3.7 3.5 - 5.3 MEQ/L [facility] Chloride 93 (L) 96 - 112 MEQ/L [facility] Carbon Dioxide 40 (H) 20 - 32 MEQ/L [facility] Anion Gap 4 (L) 5 - 17 [facility] Calcium 9.1 8.4 - 10.5 mg/dL [facility] Glucose 111 (H) 70 - 100 mg/dL [facility] Blood Urea 21 7 - 26 mg/dL [facility] Creatinine 0.7 0.4 - 1.1 mg/dL [facility] eGFR Female AA 100 60 - 200 [facility] mL/min/1.73sq m Cedric Israel [facility] eGFR Female 83 60 - 200 [facility] Non-AA mL/min/1.73sq [facility] Specimen Blood Performing Organization Address City/State/Zipcode Ph one Number [facility] [address] [place] [address] [facility] [address] [facility] [place] [address] [facility] * Complete Blood Count (09/06/2019 3:28 AM COMMUNICATION ENGINEER) Only the most recent of 6 results within the time period is included. [facility] Signature WBC 9.44 4.00 - 11.00 TH/uL [facility] RBC 3.64 (L) 4.00 - 5.00 MIL/uL [facility] Hemoglobin 11.8 (L) 12.0 - 15.0 g/dL [facility] Hematocrit 36 36 - 45 % [facility] MCV 99 80 - 99 fL [facility] MCH 32 27 - 34 pg [facility] MCHC 33 32 - 36 % [facility] RDW 13.4 11.5 - 14.5 % [facility] Platelet Count 215 140 - 400 TH/uL [facility] MPV 10.3 9.4 - 12.3 fL [facility] Nucleated RBCs 0 0 - 0 /100 [facility] Specimen Blood Performing Organization Address City/[facility] Centercode Ph one Number [facility] [address] [facility] , [place] [id number] [facility] [place] Ramos [address] [place] [address] [facility] * Culture, Blood (09/04/2019 11:32 AM COMMUNICATION ENGINEER) Only the most recent of 4 results within the time period is included. Pathologist [facility] Culture Result No Growth at 5 days [facility] Specimen Blood Narrative Performed At 20ml rh [facility] Performing Organization Address City/[facility] Centercook Ph one Number [address] [address] LABORATORIES [facility] [address] [place] [address] * Troponin (09/03/2019 9:00 PM COMMUNICATION ENGINEER) Only the most recent of 4 results within the time period is included. Pathologist [facility] Troponin <0.01 0.00 - 0.03 ng/mL [facility] Comment: Cedric Ramos Troponin Value [facility] Interpretation 0.00 - 0.03 Healthy 0.04 - 0.12 Increased Cardiac Risk >0.12 Myocardial Infarction Troponin may not become elevated until 6 to 8 hours after onset of symptoms. Specimen Blood Performing Organization Address [facility] Ph one Number [facility] [address] [facility] [place] [address] [facility] [address] [place] [address] [facility] [place] [address] [facility] * Electrocardiogram (ECG) (09/03/2019 8:23 PM COMMUNICATION ENGINEER) Only the most recent of 2 results within the time period is included. 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 : 1950 Requested By: CHUCKIE SHORT Order Number: [id number] Reading MD: Omar Ramirez Measurements Intervals Angela Rate: 92 P: 59 MS: 148 QRS: 38 QRSD: 102 T: 50 QT: 388 QTc: 481 Interpretive Statements SINUS RHYTHM Electronically Signed On 09-15-2019 11:2 3:15 COMMUNICATION ENGINEER by Omar Ramirez Procedure Note Interface, External Ris In - 09/15/2019 11:23 AM COMMUNICATION ENGINEER [facility] Test Date: 2019-09-03 Pat Name: ISIAH BENÍTEZ Department: SI1 Room: 4065 Gender: Female 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 LEVI No suspicious renal mass identified. No evidence of hydronephrosis. READING SITE: [facility] Narrative Performed At Patient: ISIAH BENÍTEZ Sex#: F #: 1950 Jose #: [id number] Location: [facility] ICU3 4076-01 Accessi on#: [id number] Procedure Requested: [id number] US RENAL COMPLETE Reason for Exam: ARF, [...] Rad Results In - 08/31/2019 2:23 PM COMMUNICATION ENGINEER Patient: ISIAH BENÍTEZ Sex#: F #: 1950 Jose#: [id number] Location: [facility] 4 [facility] 4076-01 Procedure Requested: [id number] US RENAL COMPLETE Reason for Exam: ARF, [...] evidence of hydronephrosis. READING SITE: [facility] Address City/State/Zipcode Ph one Number [place] * Respiratory Panel by PCR (08/31/2019 11:35 AM COMMUNICATION ENGINEER) Adenovirus Not Detected Not Detected [facility] Bordetella Not Detected Not Detected [facility] Chlamydophila Not Detected Not Detected [facility] pneumoniae [facility] Coronavirus Not Detected Not Detected [facility] 229E [facility] Coronavirus Not Detected Not Detected [facility] HKU1 [facility] Coronavirus Not Detected Not Detected [facility] NL63 [facility] Coronavirus Not Detected Not Detected [facility] OC43 [facility] Human Not Detected Not Detected [facility] Metapneumovirus [facility] (hMPV) Human Not Detected Not Detected [facility] Rhinovirus [facility] Enterovirus Influenza A Not Detected Not Detected [facility] Influenza B Not Detected Not Detected [facility] Mycoplasma Not Detected Not Detected [facility] pneumoniae [facility] Parainfluenza Not Detected Not Detected [facility] Virus (PIV) 1 [facility] Parainfluenza Not Detected Not Detected [facility] Virus (PIV) 2 Hospital Lab Parainfluenza Not Detected Not Detected [facility] Virus (PIV) 3 Hospital Lab Parainfluenza Not Detected Not Detected [facility] Virus (PIV) 4 Hospital Lab Respiratory Detected (A) Not Detected [facility] Syncytial Virus [facility] Pl Source NASOPHAR [facility] Specimen Nasopharynx, Performing Organization Address City/State/[facility] Centercode Ph one Number [facility] [address] [place] [address] LABORATORIES [facility] [address] [place] [address] * Lactate Venous WB (08/30/2019 10:51 PM COMMUNICATION ENGINEER) Only the most recent of 3 results within the time period is included. Lactate Venous 1.9 0.0 - 2.0 mmol/L [facility] Specimen Blood Narrative Performed At Reflex sepsis screen >2.0 [facility] CEDRIC [facility] Performing Organization Address City/[facility] Center[facility] Ph one Number [facility] [address] [place], [place] [id number] [facility] Mancusos [address] [place] [address] [facility] [address] [place] [facility] [address], [facility] * Glucose (08/30/2019 4:48 PM COMMUNICATION ENGINEER) Glucose 304 (H) 70 - 100 mg/dL [facility] Specimen Blood Narrative Performed At Reflex order. Previous POC GLUCOSE >500 [facility] Performing Organization Address City/State/[facility] Centercode Ph one Number [facility] [address]ugenia Se[place], [place] [phone] [facility] [place] [facility] [address] [place] [address] [facility] [facility] [address] [place] [address], [facility] * FL Retrograde Urography in OR (08/30/2019 4:20 PM COMMUNICATION ENGINEER) Specimen Impressions Performed At FINDINGS/IMPRESSION: 1 intraoperative fluoroscopicvie w is submitted. LEVI Total fluoroscopy time was 19.4 seconds . Left ureteral stent has been placed. The proximal aspect is coiled w ithin the decompressed left renal pelvis. The distal aspect is not includ ed on this examination. Please see procedure note for further evaluati on. READING LOCATION: [facility] Narrative Performed At Patient: ISIAH BENÍTEZ Sex#: F #: 1950 Jose #: [id number] Location: [facility] MAIN OR NONE Procedure Requested: [id number] FL RETRO GRADE UROGRAPHY IN OR Reason for Exam: abdomen pain Exam Ordered: 08/30/2019 144 0 Exam Date/Time: 08/30/2019 1620 Begin exam date/time: 08/30/2019 1530 STUDY/PROCEDURE: Intraoperative fluoros copic procedure guidance INDICATION: Left ureteral calculus, hyd ronephrosis. COMPARISON: CT of the abdomen and pelvi s with contrast dated September 09, 2019. Procedure Note Interface, Rad Results In - 08/30/2019 7:33 PM COMMUNICATION ENGINEER Patient: ISIAH BENÍTEZ Sex#: F #: 1950 Jose#: [id number] Location: [facility] MAIN OR NONE Procedure Requested: [id number] FL RETROGRADE UROGRAPHY IN OR Reason for [...] procedure note for further evaluation. READING LOCATION: [facility] Performing Organization Address [facility] Ph one Number LEVI * Culture, Urine (08/30/2019 3:54 PM COMMUNICATION ENGINEER) Only the most recent of 2 results within the time period is included. Isolate 1 >100,000 Cfu/ml (A) [facility] Isolate 1 Steven albicans (A) [facility] Isolate 1 In the absence of symptoms, [facility] Steven is generally Hospital Lab considered normal ciera. No therapy indicated unless high risk (, or neutropenic) or undergoing urologic procedure. If Ballard catheter present, remove or replace when able. (A) Specimen Urine - Urine Antibiotic Method Susceptibility Organism FLUCONAZOLE <=1: Sensitive Steven albicans VORICONAZOLE <=0.12: Sensitive Steven albicans Performing Organization Address [facility] one Number [address] [address] LABORATORIES [facility] [address] [place] [address] * Culture, Fungus (08/30/2019 3:54 PM COMMUNICATION ENGINEER) Isolate 1 Steven albicans (A) [facility] Specimen Urine - Urine Performing Organization Address [facility] one Number [address] [address] LABORATORIES [facility] [address] [place] [address] * Culture, AFB (08/30/2019 3:54 PM COMMUNICATION ENGINEER) AFB Stain No Acid Fast Bacilli seen on [facility] fluorescent stain. Hospital Lab Culture result No Acid fast bacilli isolated [facility] Mycobacteriolog at 6 weeks Hospital Lab y Specimen Urine - Urine Performing Organization Address [facility] one Number [address] [address] LABORATORIES [facility] [address] [place] [address] * Urinalysis Microscopic Only (08/30/2019 2:14 PM COMMUNICATION ENGINEER) Microscopic RBC 6 - 10 (A) 0 - 5 /hpf [facility] Urine [facility] Microscopic WBC >40 (A) 0 - 5 /hpf [facility] Urine [facility] Epithelial Absent Absent [facility] Cells [facility] Hyaline Cast Large (A) Absent [facility] Bacteria Absent Absent [facility] WBC Clumps Present (A)Comment: WBC count Absent [facility] may be under-estimated due to [facility] the presence of WBC clumps. [facility] Yeast Present (A) Absent [facility] Specimen Catheter Urine Performing Organization Address City/State/[facility] one Number [facility] [address] [place] [address] [facility] Cedric [facility] [address] [facility] [place] [address] [facility] * Urinalysis Reflex (08/30/2019 2:14 PM COMMUNICATION ENGINEER) Appearance, Yellow [facility] Urine [facility] Glucose Urine >=1000 (A) Negative mg/dL [facility] Bilirubin Urine Negative Negative [facility] Ketones Urine Negative Negative mg/dL [facility] Specific >=1.030 1.001 - 1.030 [facility] [place], UA [facility] Hemoglobin Large (A) Negative [facility] Urine [facility] PH Urine 5.0 5.0 - 8.0 [facility] Protein Urine 30 (A) Negative mg/dL [facility] Qual [facility] Urobilinogen Negative Negative EU/dL [facility] Urine [facility] Nitrite Urine Negative Negative [facility] Leukocyte Positive (A) Negative [facility] Esterase [facility] Specimen Catheter Urine Performing Organization Address City/State/Zipcode Ph one Number [facility] [address] [place], [place] [address] [facility] [address] Ramos [place], [place] [address] [facility] * CT Abdomen Pelvis w contrast (08/30/2019 12:48 PM COMMUNICATION ENGINEER) Specimen Impressions Performed At 1. 5 mm proximal left ureteral stone and mild left-si ded hydronephrosis. LEVI No other nephroureterolithiasis is seen . 2. 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 Moderate urinary bladder distention. 3. Hepatomegaly and hepatic steatosis. READING SITE: [facility] Narrative Performed At Patient: ISIAH BENÍTEZ Sex#: F #: 1950 Jose #: [id number] [facility] Procedure Requested: [id number] CT ABDOM EN PELVIS W CONTRAST Reason [...] Rad Results In - 08/30/2019 1:09 PM COMMUNICATION ENGINEER Patient: ISIAH BENÍTEZ Sex#: F #: 1950 Jose#: [id number] Location: [facility] SED-07 Procedure Requested: [id number] CT ABDOMEN PELVIS W CONTRAST Reason for [...] 3. Hepatomegaly and hepatic steatosis. READING SITE: [facility] Performing Organization Address City/[facility] Ph one Number LEVI * Influenza PCR (08/30/2019 12:29 PM COMMUNICATION ENGINEER) Influenza A PCR Not Detected Not Detected [facility] Influenza B PCR Not Detected Not Detected [facility] Source Nasopharynx [facility] Lab Specimen NASOPHARYNGEAL SWAB Performing Organization Address City/[facility] Ph one Number [facility] [address] [facility] [place] [address] [facility] leonleeugenia Mancusos [address] [facility] [address] [facility] * ED PROCEDURE BASIC - CRITICAL CARE (08/30/2019 12:21 PM COMMUNICATION ENGINEER) Narrative Performed At Dirk Valencia MD 08/30/2019 [...] Blood, diagnostic (non-neoplasm screening) (08/30/2019 12:14 PM COMMUNICATION ENGINEER) Fecal Occult Negative Negative [facility] Blood Cedric Ramos [facility] Sample 1 08/30/2019 [facility] Collection Date Cedric Ramos [facility] Specimen Stool Performing Organization Address [facility] one Number [facility] [address] [place] [address] [facility] [address] [place] [address] [facility] * Magnesium (08/30/2019 12:13 PM COMMUNICATION ENGINEER) Magnesium 1.7 1.4 - 2.7 mg/dL [facility] Specimen Blood Performing Organization Address [facility] one Number [facility] [address] [place] [address] [facility] [address] [place] [address] [facility] * BNP (08/30/2019 12:13 PM COMMUNICATION ENGINEER) NTproBNP 340 pg/mL [facility] Comment: Cedric Mancusos NT-proBNP Reference Ranges: [facility] <50 yr <450 pg/mL 50-75 yr <900 pg/mL >75 yr <1800 pg/mL A cutoff value of 1200 pg/mL is recommended in patients 50 to 70 years of age with a GFR between 30 and 60. NT-proBNP is unreliable in patients with GFR <30. Specimen Blood Performing Organization Address [facility]/Zipcode Ph one Number [facility] [address] [place], [place] [phone] [facility] Mancusos [address] [place] [address] [facility] * Lipase (08/30/2019 12:13 PM COMMUNICATION ENGINEER) Lipase 20 (L) 23 - 300 IU/L [facility] Specimen Blood Performing Organization Address City/State/[facility] Centercode Ph one Number [facility] [address] [place], [place] [id number] [facility] Mancusos [address] [place] [address] [facility] * Comprehensive Metabolic Panel (08/30/2019 12:13 PM COMMUNICATION ENGINEER) Sodium 137 133 - 147 MEQ/L [facility] Potassium 4.4 3.5 - 5.3 MEQ/L [facility] Chloride 97 96 - 112 MEQ/L [facility] Carbon Dioxide 27 20 - 32 MEQ/L [facility] Anion Gap 14 5 - 17 [facility] Calcium 9.2 8.4 - 10.5 mg/dL [facility] Glucose 439 (H) 70 - 100 mg/dL [facility] Protein Total 8.8 (H) 6.0 - 8.2 g/dL [facility] Serum [facility] Albumin 4.5 3.5 - 5.0 g/dL [facility] Alkaline 124 42 - 140 IU/L [facility] Phosphatase [facility] Alanine 33 0 - 34 IU/L [facility] Aminotransferas [facility] e [facility] Aspartate 36 15 - 46 IU/L [facility] Aminotransferas [facility] e [facility] Bilirubin Total 0.5 0.2 - 1.3 mg/dL [facility] Blood Urea 26 7 - 26 mg/dL [facility] Creatinine 1.2 (H) 0.4 - 1.1 mg/dL [facility] eGFR Female AA 54 (L) 60 - 200 [facility] mL/min/1.73sq m Cedric Israels [facility] eGFR Female 45 (L) 60 - 200 [facility] Non-AA mL/min/1.73sq m Cedric Israeleugenia [facility] Specimen Blood Performing Organization Address City/State/Zipcode Ph one Number [facility] ISRAELEugenia [address] [facility] [place] [address] [facility] Jhonataneugenia [address] [facility] [place] [address] [facility] * CBC and Diff (manual diff if necessary) (08/30/2019 12:13 PM COMMUNICATION ENGINEER) WBC 12.26 (H) 4.00 - 11.00 TH/uL [facility] RBC 4.67 4.00 - 5.00 MIL/uL [facility] Hemoglobin 15.1 (H) 12.0 - 15.0 g/dL [facility] Hematocrit 45 36 - 45 % [facility] MCV 97 80 - 99 fL [facility] MCH 32 27 - 34 pg [facility] [facility] MCHC 33 32 - 36 % [facility] RDW 13.1 11.5 - 14.5 % [facility] Platelet Count 161 140 - 400 TH/uL [facility] MPV 10.8 9.4 - 12.3 fL [facility] Nucleated RBCs 0 0 - 0 /100 [facility] % Neutrophils 87 (H) 45 - 78 % [facility] %Lymphocytes 10 (L) 15 - 47 % [facility] %Monocytes 3 0 - 12 % [facility] %Eosinophils 0 0 - 7 % [facility] %Basophils 0 0 - 2 % [facility] # Granulocytes 10.67 (H) 1.7 - 6.8 TH/uL [facility] # Lymphocytes 1.23 1.0 - 3.3 TH/uL [facility] # Monocytes 0.37 0.2 - 0.9 TH/uL [facility] # Eosinophils 0.00 0.0 - 0.4 TH/uL [facility] # Basophils 0.05 0.0 - 0.1 TH/uL [facility] Left Shift Present (A) Absent [facility] RBC Morphology Normal Normal [facility] Specimen Blood Performing Organization Address City/State/[facility] Ph one [facility] [address] [facility] [place] [address] [facility] [address] [facility] [place] [address] [facility] documented in this encounter Visit Diagnoses [...] not exceed 2 GM/DAY., 09/02/2019 11:25 PM COMMUNICATION ENGINEER 2.5 mg albuterol (ACCUNEB) 2.5 mg/3 mL (0.083 Given %) nebulizer solution 2.5 mg 2.5 mg, Nebulization, Every 4 hours PRN , wheezing, shortness of air, Starting 08/30/19 at 1725 2.5 mg Given 09/01/2019 1:03 AM COMMUNICATION ENGINEER 09/05/2019 3:01 PM COMMUNICATION ENGINEER 2 mg alteplase (CATHFLO ACTIVASE) injection 2 Given mg 2 mg, Intra-Catheter, As needed, declotting central catheter or sluggish/occluded CVC line, Starting u 08/31/19 at 1724, Use 2 mg/2 mL to declot catheter as needed, Declot catheter per Central Venous Access Device, Declottin g procedure in Melissa Refrigerate. Reconstitute with 2.2 mL sterile water for injection, 08/31/2019 6:33 PM COMMUNICATION ENGINEER 15 mL aluminum-magnesium hydroxide-simethicone Given (MAALOX PLUS) 400-400-40 mg/5 mL suspension 15 mL 15 mL, Oral, Every 4 hours PRN, indigestion, Starting Wed08/30/19 at 1723, Avoid if estimated glomerular filtration rate (eGFR) is less than 20 mL/minute/1.73m2., 09/06/2019 8:51 PM COMMUNICATION ENGINEER 25 mg amitriptyline (ELAVIL) tablet 25 mg Given 25 mg, Oral, Nightly, First dose on Wed08/30/19 at 2100 25 mg Given 09/05/2019 8:09 PM COMMUNICATION ENGINEER 25 mg Given 09/04/2019 8:33 PM COMMUNICATION ENGINEER 09/06/2019 8:51 PM COMMUNICATION ENGINEER 40 mg atorvastatin (LIPITOR) tablet 40 mg Given 40 mg, Oral, Nightly, First dose on Wed08/30/19 at 2100 40 mg Given 09/05/2019 8:09 PM COMMUNICATION ENGINEER 40 mg Given 09/04/2019 8:33 PM COMMUNICATION ENGINEER benzocaine-menthol (CEPACOL) lozenge 1 lozenge 1 lozenge, Buccal, Every 1 hour prn, sore throat, Starting Wed08/30/19 at 172 4 09/07/2019 2:48 PM COMMUNICATION ENGINEER 100 mg benzonatate (TESSALON) capsule 100 mg Given 100 mg, Oral, 3 times daily PRN, cough, Starting Wed08/30/19 at 1753, DO NOT CRUSH OR CHEW., 100 mg Given 09/07/2019 10:06 AM COMMUNICATION ENGINEER 100 mg Given 09/05/2019 8:27 PM COMMUNICATION ENGINEER bisacodyl (DULCOLAX) suppository 10 mg 10 mg, Rectal, Daily PRN, constipation, constipation in patients who are NPO, i n patients who have nausea, or in patient s where there is any concern about ileus or bowel obstruction., Starting Wed08/30/19 at 1723, Hold these medications if patient has had loose stool or diarrhea within previous 24 hours., 09/07/2019 10:06 AM COMMUNICATION ENGINEER 20 mg citalopram (CeleXA) tablet 20 mg Given 20 mg, Oral, Daily, First dose on Wed08/30/19 at 1745 20 mg Given 09/06/2019 9:23 AM COMMUNICATION ENGINEER 20 mg Given 09/05/2019 8:33 AM COMMUNICATION ENGINEER 09/04/2019 3:35 AM COMMUNICATION ENGINEER 0.1 mg cloNIDine HCl (CATAPRES) tablet 0.1 mg Given 0.1 mg, Oral, Every 8 hours PRN, SBP > 180 and/or DBP > 100, Starting Wed09/04/19 at 0322 09/07/2019 2:29 PM COMMUNICATION ENGINEER 10 mg cyclobenzaprine (FLEXERIL) tablet 10 mg Given 10 mg, Oral, 3 times daily PRN, muscle spasms, Starting Wed08/30/19 at 1726 10 mg Given 09/07/2019 10:05 AM COMMUNICATION ENGINEER 10 mg Given 09/04/2019 8:50 PM COMMUNICATION ENGINEER dextrose (D50W) 50 % injection 25-50 mL [...] NOT CRUSH OR CHEW., 09/07/2019 10:03 AM COMMUNICATION ENGINEER 40 mg Right Lo wer Abdomen enoxaparin (LOVENOX) syringe 40 mg Given 40 mg, Subcutaneous, Every 24 hours scheduled, First dose on Wed08/30/19 at 1745 40 mg Left Lower Abdomen Given 09/06/2019 9:24 AM COMMUNICATION ENGINEER 40 mg Right Lower Abdomen Given 09/05/2019 8:32 AM COMMUNICATION ENGINEER 09/06/2019 11:08 AM COMMUNICATION ENGINEER 50 mcg fentaNYL (SUBLIMAZE) injection 25-50 mcg [...] therapy., 50 mcg Given 09/05/2019 8:09 PM COMMUNICATION ENGINEER 50 mcg Given 09/05/2019 10:30 AM COMMUNICATION ENGINEER 09/07/2019 11:40 AM COMMUNICATION ENGINEER 400 mg 100 mL/hr fluconazole in NaCl (iso-osm) (DIFLUCAN) New Bag IVPB 400 mg 400 mg, Intravenous, at 100 mL/hr, Daily, Indications: CANDIDEMIA, C. albicans sensitive to fluconazole, Firs t dose on Wed09/06/19 at 1000 400 mg 100 mL/hr New Bag 09/06/2019 10:13 AM COMMUNICATION ENGINEER 09/07/2019 8:16 AM COMMUNICATION ENGINEER 1 puff fluticasone furoate-vilanterol (BREO Given ELLIPTA) 200-25 mcg/actuation inhaler 1 puff 1 puff, Inhalation, Daily, First dose o n Wed08/30/19 at 1745, Rinse mouth with water after use if patient not on vent. , 1 puff Given 09/06/2019 8:44 AM COMMUNICATION ENGINEER 1 puff Given 09/05/2019 7:49 AM COMMUNICATION ENGINEER 09/07/2019 10:07 AM COMMUNICATION ENGINEER 600 mg gabapentin (NEURONTIN) capsule 600 mg Given 600 mg, Oral, 3 times daily, First dose on Wed08/30/19 at 1745 600 mg Given 09/06/2019 8:51 PM COMMUNICATION ENGINEER 600 mg Given 09/06/2019 5:14 PM COMMUNICATION ENGINEER glucagon (GLUCAGEN) injection 1 mg 1 mg, Intramuscular, As needed, low blood sugar, low blood sugar, Starting Wed08/30/19 at 1725, Give if patient NPO and no IV access. May give IM or SQ in arm and turn patient on side. Reconstitute powder for injection by adding 1 mL of industrial engineer-supplied sterile diluent or sterile water for injection [...] for injection by adding 1 mL of industrial engineer-supplied sterile diluent o r sterile water for [...] less than 70 mg/dL., 09/07/2019 2:48 PM COMMUNICATION ENGINEER 200 mg guaiFENesin (ROBITUSSIN) 100 mg/5 mL Given syrup 200 mg 200 mg, Oral, Every 4 hours PRN, cough, Starting Wed08/30/19 at 1724 200 mg Given 09/07/2019 10:03 AM COMMUNICATION ENGINEER 200 mg Given 09/03/2019 3:05 AM COMMUNICATION ENGINEER 09/07/2019 10:05 AM COMMUNICATION ENGINEER 25 mg hydroCHLOROthiazide (HYDRODIURIL) tablet Given 25 mg 25 mg, Oral, Daily, First dose on Wed09/05/19 at 0900 25 mg Given 09/06/2019 9:24 AM COMMUNICATION ENGINEER 25 mg Given 09/05/2019 8:32 AM COMMUNICATION ENGINEER 09/07/2019 10:03 AM COMMUNICATION ENGINEER 0.125 mg hyoscyamine (LEVSIN/SL) SL tablet 0.125 Given mg 0.125 mg, Sublingual, Every 4 hours, First dose on Wed09/06/19 at 1200, For bladder spasms, 0.125 mg Given 09/07/2019 4:25 AM COMMUNICATION ENGINEER 0.125 mg Given 09/07/2019 12:48 AM COMMUNICATION ENGINEER 09/06/2019 8:51 PM COMMUNICATION ENGINEER 25 Units Right Lo wer Abdomen insulin glargine (LANTUS) injection 25 Given Units 25 Units, Subcutaneous, Nightly, First dose (after last modification) on Ju 08/31/19 at 2100 25 Units Right Arm Given 09/05/2019 8:06 PM COMMUNICATION ENGINEER 25 Units Left Lower Abdomen Given 09/04/2019 8:33 PM COMMUNICATION ENGINEER 09/07/2019 2:29 PM COMMUNICATION ENGINEER 9 Units Right Lo wer Abdomen insulin [...] Left Upper Abdomen Given 09/07/2019 6:23 AM COMMUNICATION ENGINEER 12 Units Right Upper Abdomen Given 09/07/2019 12:48 AM COMMUNICATION ENGINEER 08/30/2019 2:46 PM COMMUNICATION ENGINEER 2.5 mL Operativ e Site iohexol (OMNIPAQUE) 300 mg iodine/mL Given injection As needed, Starting Wed08/30/19 at 1446, Intra-op 09/07/2019 1:22 PM COMMUNICATION ENGINEER 3 mL ipratropium-albuterol (DUO-NEB) 0.5-3 Given mg/3 mL nebulizer solution 3 mL 3 mL, Inhalation, Every 4 hours, First dose (after last modification) on Wed09/06/19 at 0100 3 mL Given 09/07/2019 8:25 AM COMMUNICATION ENGINEER 3 mL Given 09/07/2019 3:51 AM COMMUNICATION ENGINEER 09/07/2019 10:06 AM COMMUNICATION ENGINEER 2 capsules lactobacillus (CULTURELLE) 10 billion Given cell capsule 2 capsule, Oral, Daily, First dose on Wed08/30/19 at 1815 2 capsules Given 09/06/2019 9:23 AM COMMUNICATION ENGINEER 2 capsules Given 09/05/2019 8:33 AM COMMUNICATION ENGINEER magnesium sulfate IVPB 2 gram (premix) 2 [...] (if able to monitor)., 09/05/2019 8:06 PM COMMUNICATION ENGINEER 3 mg melatonin tablet 3 mg Given 3 mg, Oral, Nightly PRN, sleep, Startin g Wed08/30/19 at 1724, Give 3-4 hours prio r to planned bedtime., 09/07/2019 10:04 AM COMMUNICATION ENGINEER 100 mg metoprolol tartrate (LOPRESSOR) tablet Given 100 mg 100 mg, Oral, 2 times daily, First dose on Wed08/30/19 at 2100, Hold for sbp < 100 or hr < 50, 100 mg Given 09/06/2019 8:52 PM COMMUNICATION ENGINEER 100 mg Given 09/06/2019 9:23 AM COMMUNICATION ENGINEER miconazole nitrate (ALOE VESTA) 2 % ointment Topical, 3 times daily PRN, perineal or skin fold redness, Starting Wed08/30/19 at 1724, Consult wound care if no improvement within 3 days., ondansetron (ZOFRAN) injection 4 mg 4 mg, Intravenous, Every 6 hours PRN, nausea/vomiting (2nd line), Starting We 08/30/19 at 1724 09/07/2019 2:29 PM COMMUNICATION ENGINEER 1 tablet oxyCODONE-acetaminophen (PERCOCET) 5-325 Given mg 1 tablet 1 tablet, Oral, Every 4 hours PRN, moderate pain (pain score 4-6), Startin g 09/04/19 at 1011, Do not exceed 4 GM/DAY of acetaminophen. If 65 or olde r do not exceed 3 GM/DAY. If chronic alcoholic do not exceed 2 GM/DAY., 1 tablet Given 09/07/2019 10:07 AM COMMUNICATION ENGINEER 1 tablet Given 09/07/2019 2:40 AM COMMUNICATION ENGINEER 09/07/2019 11:33 AM COMMUNICATION ENGINEER 40 mg pantoprazole (PROTONIX) injection 40 mg Given 40 mg, Intravenous, 2 times daily, Firs t dose on Wed08/30/19 at 2100, Dilute with 10 mL of 0.9% NaCl. DO NOT REFRIGERATE, 40 mg Given 09/06/2019 8:51 PM COMMUNICATION ENGINEER 40 mg Given 09/06/2019 9:23 AM COMMUNICATION ENGINEER 09/07/2019 10:07 AM COMMUNICATION ENGINEER 100 mg phenazopyridine (PYRIDIUM) tablet 100 mg [...] through a central line., 09/07/2019 10:06 AM COMMUNICATION ENGINEER 30 mg predniSONE (DELTASONE) tablet 30 mg Given 30 mg, Oral, Daily, Indications: prevention of cardiac transplant rejection, First dose (after last modification) on Wed09/05/19 at 0900, Give with food to reduce GI upset, 30 mg Given 09/06/2019 9:23 AM COMMUNICATION ENGINEER 30 mg Given 09/05/2019 8:33 AM COMMUNICATION ENGINEER prochlorperazine (COMPAZINE) injection 2.5-5 mg 2.5-5 mg, [...] Starting Wed08/30/19 at 1724 08/30/2019 2:46 PM COMMUNICATION ENGINEER 1,000 mL sterile water irrigation irrigation Given solution As needed, Starting Wed08/30/19 at 1445, Intra-op 3,000 mL Given 08/30/2019 2:45 PM COMMUNICATION ENGINEER 09/07/2019 10:04 AM COMMUNICATION ENGINEER 0.4 mg tamsulosin (FLOMAX) 24 hr capsule 0.4 mg Given 0.4 mg, Oral, Daily, First dose on Wed08/30/19 at 1800, DO NOT CRUSH OR CHEW., 0.4 mg Given 09/06/2019 9:24 AM COMMUNICATION ENGINEER 0.4 mg Given 09/05/2019 8:32 AM COMMUNICATION ENGINEER 09/07/2019 10:04 AM COMMUNICATION ENGINEER 2 mg tolterodine (DETROL) tablet 2 mg Given 2 mg, Oral, 2 times daily, First dose o n Wed08/30/19 at 2100 2 mg Given 09/06/2019 9:51 PM COMMUNICATION ENGINEER 2 mg Given 09/06/2019 9:24 AM COMMUNICATION ENGINEER documented in this encounter Additional Health Concerns Last Indicated Resolved Time Infection Onset Date 08/30/2019 08/30/2019 1:09 PM COMMUNICATION ENGINEER Influenza - Rule Out 08/30/2019 08/31/2019 09/17/2019 8:17 AM COMMUNICATION ENGINEER RSV 08/31/2019 documented as of this encounter
--- OUTSIDE RECORDS SUMMARY | 2020-03-16 13:53 | XMS REPORT | Encounter Summary ---
Author Author [facility] Organization [facility] Address Unknown Phone Unavailable Care Team Providers Care Dog Pound Attendant Name Role Phone Ebony Sharp MD PCP Encounter Details Care Team Description [place] [address] [place] [address] [phone] 07/19/2019 Orders Only [facility] [address] [facility] [address] [place] [address] Social History Date Tobacco Use Types Packs/Day [...]
--- OUTSIDE RECORDS SUMMARY | 2020-03-16 13:53 | XMS REPORT | Encounter Summary ---
Author Author [facility] Organization [facility] Address Unknown Phone Unavailable Care Team Providers Care Web Solutions Architect Name Role Phone Ebony Sharp MD PCP Reason for Visit * Reason Comments Medication Refill Encounter Details Care Team Description Date Type Department Fiorella Jackson RN Medication Refill 07/19/2019 Refill [facility] [address] [place] [address] Social History Date Tobacco Use Types Packs/Day [...] Darin Huber MD - 07/24/2019 3:20 PM PHLEBOTOMIST MEDICAL LAB ASSISTANT Patient has had multiple Rxs for pain medications BOTOMIST MEDICAL LAB ASSISTANT * Telephone Encounter - Fiorella Jackson RN - 07/24/2019 1:59 PM PHLEBOTOMIST MEDICAL LAB ASSISTANT This patient is calling back for refill of her pain medication. Please adviseteresa ! BOTOMIST MEDICAL LAB ASSISTANT * Telephone Encounter - Marleen Arellano CMA - 07/19/2019 1:47 PM PHLEBOTOMIST MEDICAL LAB ASSISTANT Patient notified to picker packer Macrobid BOTOMIST MEDICAL LAB ASSISTANT * Telephone Encounter - Marleen Arellano CMA - 07/19/2019 1:47 PM PHLEBOTOMIST MEDICAL LAB ASSISTANT ----- Message from Darin Huber MD sent at 07/19/2019 1:26 PM PHLEBOTOMIST MEDICAL LAB ASSISTANT ----- Patient has positive urine culture. I Rx'd macrobid. Please notify patient. BOTOMIST MEDICAL LAB ASSISTANT * Telephone Encounter - Fiorella Jackson RN - 07/19/2019 9:40 AM PHLEBOTOMIST MEDICAL LAB ASSISTANT Patient calling requesting refill of pain medication, please sign if indicated. Thanks ! BOTOMIST MEDICAL LAB ASSISTANT documented in this encounter Plan of Treatment Not on filedocumented as of this encounter Visit Diagnoses Not on filedocumented in this encounter
--- OUTSIDE RECORDS SUMMARY | 2020-03-16 13:53 | XMS REPORT | Encounter Summary ---
Author Author [facility] Organization [facility] Address Unknown Phone Unavailable Care Team Providers Care Paint Line Operator Name Role Phone Ebony Sharp MD PCP Encounter Details Care Team Description Date [place] [address] [place] [address] [phone] [facility] [address] [place] [address] Social History Date Tobacco Use Types Packs/Day [...] A/vit Take by mouth 0 C/biotin/zinc/copper daily. ([id number],VIT A,C-BIOTIN, ORAL) 08/26/2017 08/28/2019 albuterol (VENTOLIN HFA) [...] URINE Routine 07/14/2019 Nephro lithiasis 1:59 PM LOG CHAIN WORKER documented in this encounter Results * Culture, Surgical Urine (SLRL) (07/14/2019 1:59 PM LOG CHAIN WORKER) Isolate 1 4000 Cfu/ml (A) [facility] Isolate 1 [place] albicans (A) [facility] Isolate 1 Susceptibility To Follow (A) [facility] Isolate 1 In the absence of symptoms, [facility] [place] is generally Hospital Lab considered normal ciera. No therapy indicated unless high risk (, or neutropenic) or undergoing urologic procedure. If Ballard catheter present, remove or replace when able. (A) Isolate 2 1000 Cfu/ml (A) [facility] Isolate 2 Staphylococcus epidermidis (A) [facility] Isolate 3 >100,000 Cfu/ml (A) [facility] Isolate 3 Lactobacillus jensenii (A) [facility] Isolate 3 No susceptibility testing done [facility] on this isolate (A) [facility] Isolate 4 >100,000 Cfu/ml (A) [facility] Isolate 4 Actinomyces neuii (A) [facility] Isolate 4 No susceptibility testing done [facility] on this isolate (A) Hospital Lab Specimen Urine Antibiotic Method Susceptibility Organism FLUCONAZOLE <=1: Sensitive [place] albicans VORICONAZOLE <=0.12: Sensitive [place] albicans VANCOMYCIN 1: Sensitive Staphylococcus epidermidis NITROFURANTOIN <=16: Sensitive Staphylococcus epidermidis OXACILLIN >1: Resistant Staphylococcus epidermidis TETRACYCLINE 1: Sensitive Staphylococcus epidermidis Performing Organization Address [facility] Ph one Number [address] [address] LABORATORIES [facility] [address] [place] [id number] documented in this encounter Visit Diagnoses Diagnosis Nephrolithiasis Calculus of kidney documented in this encounter
--- OUTSIDE RECORDS SUMMARY | 2020-03-16 13:53 | XMS REPORT | Encounter Summary ---
Author Author [facility] Organization [facility] Address Unknown Phone Unavailable Care Team Providers Care Internal Medicine Doctor Name Role Phone Ebony Sharp MD PCP Reason for Visit * Auth/Cert Referred By Contact Referred To Contact Status Reason Specialty Diagnoses / Procedures Diagnoses N20.0 P rocedures CYSTO/URETERO W/LITHOTRIPSY &INDWELL STENT INSRT CYSTOSCOPY, LEFT RETROGRADE PYELOGRAM, LEFT URETEROSCOPY, LASER LITHOTRIPSY, LEFT URETERAL STENT PLACEMENT Encounter Details Care Team Description Date [place] [address] [place] [address] [phone] Kidney stones (Primary Dx) 08/02/2019 [facility] [address] [place] [address] Social History Date Tobacco Use Types Packs/Day [...] Comments Vital Sign 164/100 08/02/2019 11:10 AM PIG BREEDER Blood Pressure 76 08/02/2019 11:10 AM PIG BREEDER Pulse 36.4 C (97.6 F) 08/02/2019 11:10 AM PIG BREEDER Temperature 18 08/02/2019 11:10 AM PIG BREEDER Respiratory Rate 95% 08/02/2019 11:10 AM PIG BREEDER Oxygen Saturation - - Inhaled Oxygen Concentration 103 kg (227 lb) 08/02/2019 8:03 AM PIG BREEDER Weight 152.4 cm (5') 08/02/2019 8:03 AM PIG BREEDER Height 44.33 08/02/2019 8:03 AM PIG BREEDER Body Mass Index documented in this encounter Discharge Instructions * Pre-Procedure Instructions* Rosy Hart RN - 07/28/2019 1:39 PM PIG BREEDER Current Outpatient Medications Medication Sig Note: albuterol [...] not picked up prescription vit A/vit C/biotin/zinc/copper (PUMH-PADV-IIQG,VIT A,C-BIOTIN, ORAL) Take by mouth daily. Note:has stopped Preoperative phone call completed with patient. Medications reviewed. Instructio ns for surgery reviewed with patient stating understanding to instructions given . Previously had OR 06/28/19. No change in health condition. Patient will plan to proceed with surgery as scheduled. Family member to be present for surgery, transportation and care after. BREEDER * Attachments The following attachments cannot be sent through Care Everywhere.* Kidney Stones, Treating: Ureteroscopic Stone Removal (Czech) * Stents, Ureteral (Czech) documented in this encounter Medications at Time [...] A/vit Take by mouth 0 C/biotin/zinc/copper daily. ([id number],VIT A,C-BIOTIN, ORAL) 08/26/2017 08/28/2019 albuterol (VENTOLIN HFA) [...] Darin Huber MD - 08/02/2019 8:50 AM PIG BREEDER [facility] UROLOGY Pre-Op NOTE Patient: Isiah Benítez Age: [...] Refusal of blood transfusions as patient is Adventist Sleep apnea CPAP use Type 2 diabetes [...] STENT PLACEMENT; Surgeon: Darin Huber MD; [facility] [place]; Service: Urology; Laterality: Left; HAND SURGERY Left 03/09/2019 [facility] REPAIR HYSTERECTOMY OOPHORECTOMY REMOVAL, HARDWARE, FOOT OR ANKLE Left 04/09/2017 Procedure: LEFT ANKLE REMOVAL OF HARDWARE WITH REVISION LEFT ANKLE ARTHRODESIS; Surgeon: Adelaida Olivas MD; [facility]; Service: Orthopedics; Later ality: Left; REPAIR, INCISIONAL HERNIA, LAPAROSCOPIC, USING MESH N/A 05/25/2018 Procedure: LAPAROSCOPIC INCISIONAL HERNIA REPAIR WITH MESH; Surgeon: Medardo Tate MD; Location: [facility]; Service: General; Laterality: N/A; TONSILLECTOMY [...] 08/01/2019 at Unknown time vit A/vit C/biotin/zinc/copper (NOSF-TMOC-RPYL,VIT A,C-BIOTIN, ORAL) Take by mouth daily. Past [...] file Gets together: Not on file Attends orthodoxy service: Not on file Active member of [...] 06/13/2019 02:29 PM Negative Negative Final Specific [place], UA Date/Time Value Ref Range Status 07/14/2019 [...] schedule stent removal in clinic in 1-2wks BREEDER documented in this encounter Miscellaneous Notes * Operative Note - Darin Huber MD - 08/02/2019 8:53 AM PIG BREEDER Brief Operative Note Isiah Benítez 08/02/2019 No case tracking events are documented in the log. Pre-op Diagnosis: N20.0 Post-op Diagnosis: Left N20.o Procedure: CYSTOSCOPY, LEFT RETROGRADE PYELOGRAM, LEFT URETEROSCOPY, LASER LITHOTRIPSY, LEF T URETERAL STENT PLACEMENT, Left Surgeon(s) and Role: * Darin Huber MD - Primary Anesthesia Type: General Staff: Hot Press Operator: Juventino Rubio RN Scrub Person: Tonja Robb No anesthesia staff entered. Findings: Left lower pole stone Estimated Blood Loss: 0 mL Specimens: Left renal stones Implants: 6x24 left ureteral stent Complications: None Description of Procedures: On August 02, 2019 after consent is obtained [facility] in supine position. She is then placed under general anesthesia. She received prep of IV Cipro for antibiotic coverage. She is then placed in d orsolithotomy energizer prepped and draped in normal sterile fashion. I began the procedure inserting the 21 Dutch rigid cystoscope transurethral wit hout difficulty. Once into the bladder identified the left ureteral stent. Juli coy used an alligator forceps to grasp the stent and pull this out to the urethr al meatus without difficulty. This was cannulated then with a sensor wire. Whi ch was passed up the renal pelvis under fluoroscopic guidance. I followed this with a 5 Dutch open-ended stent over the sensor wire. A [...] Huber MD Date: 08/02/2019 Time: 8:53 AM BREEDER documented in this encounter Plan of Treatment Not on filedocumented as of this encounter Procedures Comments Procedure Name Priority Date/Time Associated Diag nosis FL RETROGRADE UROGRAPHY Routine 08/02/2019 IN OR 10:52 AM PIG BREEDER STONE ANALYSIS Timed 08/02/2019 10:21 AM PIG BREEDER CYSTOSCOPY, RETROGRADE 08/02/2019 N20.0 PYELOGRAM, URETEROSCOPY, 9:33 AM PIG BREEDER LASER LITHOTRIPSY, WITH URETERAL STENT PLACEMENT Special Needs HOLMIUM LASER ORDERED PER RADHA bsBIOMED NOTIFIEDC- ARMO2 PER NC PRN, NIGHT PRIOR UROLOGY OR 06/28/19OSA WITH CPAP USE GLUCOSE POC Routine 08/02/2019 8:56 AM PIG BREEDER GLUCOSE POC Routine 08/02/2019 7:46 AM PIG BREEDER GLUCOSE POC Routine 08/02/2019 7:42 AM PIG BREEDER documented in this encounter Results * FL Retrograde Urography in OR (08/02/2019 10:52 AM PIG BREEDER) Specimen Impressions Performed At Image demonstrates radiopaque catheter overlying left abdomen with MCKESSON minimal contrast overlying dilated left collecting system suggesting mild left renal caliectasis. Please see procedure note for additiona l details. READING SITE: [facility] NOTE: Parts of this report were generated wit Reconnex voice recognition software. J cloud.IQ Imagin2010;24(4):724-8. Narrative Performed At Patient: ISIAH BENÍTEZ Sex#: F #: [id number] Jose #: [id number] Location: [facility] MAIN OR NONE Procedure Requested: [id number] FL RETRO GRADE UROGRAPHY IN OR Reason [...] Rad Results In - 08/02/2019 11:07 AM PIG BREEDER Patient: ISIAH BENÍTEZ Sex#: F #: [id number] Jose#: [id number] Location: [facility] MAIN OR NONE Procedure Requested: [id number] FL RETROGRADE UROGRAPHY IN OR Reason for [...] procedure note for additional details. READING SITE: [facility] NOTE: Parts of this report were generated with voice recognition software. J cloud.IQ Imagin2010;24(4):724-8. Performing Organization Address City/State/Zipcode Ph one Number LEVI * Stone Analysis Urinary (08/02/2019 10:21 AM PIG BREEDER) Stone Color Brown [facility] Stone Size CommentComment: [...] photograph will follow via computer, mail, or communications agent delivery. Stone Comment Comment [facility] Comment: Physician questions regarding Calculi Analysis contact [facility] at: [phone]. Disclaimer : Comment [facility] Comment: This test was developed and its performance characteristics determined by [facility]. It has not been cleared or approved by the Food and Drug Administration. Performed at: [address] [id number] Party Chief: Seamus Infante MD, Phone: [phone] Specimen Stone - Left Ureter Performing Organization Address City/[facility] Ph one Number SLRL [address] [place], [place] [address] [facility] Interface [phone] [place] [address] [place] [address] * GLUCOSE POC (08/02/2019 8:56 AM PIG BREEDER) Only the most recent of 3 results within the time period is included. Glucose POC 237 (H) 70 - 100 mg/dL [facility] Specimen Performing Organization Address [facility] Ph one Number [facility] [address] [facility] [address] [facility] [address] [facility] [place] [address], [facility] documented in this encounter Visit Diagnoses Diagnosis Kidney stones Calculus of kidney documented in this encounter Administered Medications Action Date Dose Rate Site Medication Order MAR Action albuterol (ACCUNEB) 2.5 mg/3 mL (0.083 %) nebulizer solution 2.5 mg 2.5 mg, Nebulization, Every 4 hours PRN , wheezing, Starting Wed08/02/19 at 1032 , PACU (only) 08/02/2019 8:27 AM PIG BREEDER 20 mg famotidine (PEPCID) injection 20 mg Given 20 mg, Intravenous, Once, Wed08/02/19 at 0830, For 1 dose, Pre-op 08/02/2019 8:27 AM PIG BREEDER 25 mcg fentaNYL (SUBLIMAZE) injection 25 mcg Given 25 mcg, Intravenous, Once, Wed08/02/19 at 0845, For 1 dose, Pre-op, Administer over 2 minutes; max dose for IVP is 2 mcg/kg. Note: Limit does not apply to patients who may be tolerant to opioid therapy or on continuous IV or PO opiat e therapy., 08/02/2019 10:39 AM PIG BREEDER 50 mcg fentaNYL (SUBLIMAZE) injection 25-50 mcg [...] anesthesia STAT if administered., 08/02/2019 8:33 AM PIG BREEDER 5 Units insulin regular (HumuLIN R) injection 5 Given Units 5 Units, Intravenous, Once, Indications : hyperglycemia, Wed08/02/19 at 0845, Fo r 1 dose, Pre-op lactated ringers infusion 50 mL/hr, Intravenous, Continuous, Starting Wed08/02/19 at 1100, For 48 hours, PACU (only) 08/02/2019 8:27 AM PIG BREEDER 50 mL/hr 50 mL/hr lactated ringers infusion [...]
--- OUTSIDE RECORDS SUMMARY | 2020-03-16 13:53 | XMS REPORT | Encounter Summary ---
Author Author [facility] Organization [facility] Address Unknown Phone Unavailable Care Team Providers Care Graining Machine Operator Name Role Phone Ebony Sharp MD PCP Reason for Visit * Auth/Cert Referred By Contact Referred To Contact Status Reason Specialty Diagnoses / Procedures Diagnoses N20.0 P rocedures CYSTO/URETERO W/LITHOTRIPSY &INDWELL STENT INSRT CYSTOSCOPY, LEFT RETROGRADE PYELOGRAM, LEFT URETEROSCOPY, LASER LITHOTRIPSY, LEFT URETERAL STENT PLACEMENT Encounter Details Care Team Description Date [place] [address] [place] [address] [phone] CYSTOSCOPY, LEFT RETROGRADE PYELOGRAM, L EFT URETEROSCOPY, LASER LITHOTRIPSY, LEFT URETERAL STENT EXCHANGE 08/02/2019 Surgery [facility] [address] [place], [place] [id number] Social History Date Tobacco Use Types Packs/Day [...] Comments Vital Sign 164/100 08/02/2019 11:10 AM SUPERVISOR TUNNEL HEADING Blood Pressure 76 08/02/2019 11:10 AM SUPERVISOR TUNNEL HEADING Pulse 36.4 C (97.6 F) 08/02/2019 11:10 AM SUPERVISOR TUNNEL HEADING Temperature 18 08/02/2019 11:10 AM SUPERVISOR TUNNEL HEADING Respiratory Rate 95% 08/02/2019 11:10 AM SUPERVISOR TUNNEL HEADING Oxygen Saturation - - Inhaled Oxygen Concentration 103 kg (227 lb) 08/02/2019 8:03 AM SUPERVISOR TUNNEL HEADING Weight 152.4 cm (5') 08/02/2019 8:03 AM SUPERVISOR TUNNEL HEADING Height 44.33 08/02/2019 8:03 AM SUPERVISOR TUNNEL HEADING Body Mass Index documented in this encounter Discharge Instructions * Pre-Procedure Instructions* Rosy Hart RN - 07/28/2019 1:39 PM SUPERVISOR TUNNEL HEADING Current Outpatient Medications Medication Sig Note: albuterol [...] before surge ry as scheduled insulin syringe (Apruve ULTRA-FINE) 0.3 mL 31 gauge x 5/16 [...] not picked up prescription vit A/vit C/biotin/zinc/copper (FEST-BKLI-TMGR,VIT A,C-BIOTIN, ORAL) Take by mouth daily. Note:has stopped Preoperative phone call completed with patient. Medications reviewed. Instructio ns for surgery reviewed with patient stating understanding to instructions given . Previously had OR 06/28/19. No change in health condition. Patient will plan to proceed with surgery as scheduled. Family member to be present for surgery, transportation and care after. RVISOR TUNNEL HEADING * Attachments The following attachments cannot be sent through Care Everywhere.* Kidney Stones, Treating: Ureteroscopic Stone Removal (Gibraltarian) * Stents, Ureteral (Gibraltarian) documented in this encounter Medications at Time [...] A/vit Take by mouth 0 C/biotin/zinc/copper daily. ([id number]-AHOI-OLBZ,VIT A,C-BIOTIN, ORAL) 08/26/2017 08/28/2019 albuterol (VENTOLIN HFA) [...] Darin Huber MD - 08/02/2019 8:50 AM SUPERVISOR TUNNEL HEADING [facility] UROLOGY Pre-Op NOTE Patient: Isiah Benítez Age: [...] and ankle. COPD (chronic obstructive pulmonary disease) ([facility]) Depression Draining postoperative wound 08/08/2016 Endometriosis Essential [...] Refusal of blood transfusions as patient is Gnosticist Sleep apnea CPAP use Type 2 diabetes [...] STENT PLACEMENT; Surgeon: Darin Huber MD; Location: [facility] Main OR; Service: Urology; Laterality: Left; HAND SURGERY Left 03/09/2019 [facility] REPAIR HYSTERECTOMY OOPHORECTOMY REMOVAL, HARDWARE, FOOT OR ANKLE Left 04/09/2017 Procedure: LEFT ANKLE REMOVAL OF HARDWARE WITH REVISION LEFT ANKLE ARTHRODESIS; Surgeon: Adelaida Olivas MD; Location: [facility] Main OR; Service: Orthopedics; Later ality: Left; REPAIR, INCISIONAL HERNIA, LAPAROSCOPIC, USING MESH N/A 05/25/2018 Procedure: LAPAROSCOPIC INCISIONAL HERNIA REPAIR WITH MESH; Surgeon: Medardo Tate MD; Location: [facility] Main OR; Service: General; [...] 08/01/2019 at Unknown time vit A/vit C/biotin/zinc/copper (VEVB-SRXZ-LMMS,VIT A,C-BIOTIN, ORAL) Take by mouth daily. Past [...] file Gets together: Not on file Attends scientology service: Not on file Active member of [...] 06/13/2019 02:29 PM Negative Negative Final Specific [place], UA Date/Time Value Ref Range Status 07/14/2019 [...] schedule stent removal in clinic in 1-2wks RVISOR TUNNEL HEADING documented in this encounter Miscellaneous Notes * Operative Note - Darin Huber MD - 08/02/2019 8:53 AM SUPERVISOR TUNNEL HEADING Brief Operative Note Isiah Benítez 08/02/2019 No case tracking events are documented in the log. Pre-op Diagnosis: N20.0 Post-op Diagnosis: Left N20.o Procedure: CYSTOSCOPY, LEFT RETROGRADE PYELOGRAM, LEFT URETEROSCOPY, LASER LITHOTRIPSY, LEF T URETERAL STENT PLACEMENT, Left Surgeon(s) and Role: * Darin Huber MD - Primary Anesthesia Type: General Staff: Football Pad Repairer: Juventino Rubio RN Scrub Person: Tonja Robb [...] I began the procedure inserting the 21 Ukrainian rigid cystoscope transurethral wit hout difficulty. Once into the bladder identified the left ureteral stent. I teresa coy used an alligator forceps to grasp the stent and pull this out to the urethr al meatus without difficulty. This was cannulated then with a sensor wire. Whi ch was passed up the renal pelvis under fluoroscopic guidance. I followed this with a 5 Ukrainian open-ended stent over the sensor wire. A [...] Huber MD Date: 08/02/2019 Time: 8:53 AM RVISOR TUNNEL HEADING documented in this encounter Plan of Treatment Not on filedocumented as of this encounter Procedures Comments Procedure Name Priority Date/Time Associated Diag nosis FL RETROGRADE UROGRAPHY Routine 08/02/2019 IN OR 10:52 AM SUPERVISOR TUNNEL HEADING STONE ANALYSIS Timed 08/02/2019 10:21 AM SUPERVISOR TUNNEL HEADING CYSTOSCOPY, RETROGRADE 08/02/2019 N20.0 PYELOGRAM, URETEROSCOPY, 9:33 AM SUPERVISOR TUNNEL HEADING LASER LITHOTRIPSY, WITH URETERAL STENT PLACEMENT Special Needs HOLMIUM LASER ORDERED PER RADHA bsBIOMED NOTIFIEDC- ARMO2 PER [place] PRN, NIGHT PRIOR UROLOGY OR 06/28/19OSA WITH CPAP USE GLUCOSE POC Routine 08/02/2019 8:56 AM SUPERVISOR TUNNEL HEADING GLUCOSE POC Routine 08/02/2019 7:46 AM SUPERVISOR TUNNEL HEADING GLUCOSE POC Routine 08/02/2019 7:42 AM SUPERVISOR TUNNEL HEADING documented in this encounter Results * FL Retrograde Urography in OR (08/02/2019 10:52 AM SUPERVISOR TUNNEL HEADING) Specimen Impressions Performed At Image demonstrates radiopaque catheter overlying left abdomen with MCKESSON minimal contrast overlying dilated left collecting system suggesting mild left renal caliectasis. Please see procedure note for additiona l details. READING SITE: [facility] NOTE: Parts of this report were generated wit Cloudary voice recognition software. daysoft Imagin2010;24(4):724-8. Narrative Performed At Patient: ISIAH BENÍTEZ Sex#: F #: [id number] Jose #: [id number] Location: [facility] MAIN OR NONE Procedure Requested: [id number] FL RETRO GRADE UROGRAPHY IN OR Reason [...] Rad Results In - 08/02/2019 11:07 AM SUPERVISOR TUNNEL HEADING Patient: ISIAH BENÍTEZ Sex#: F #: [id number] Jose#: [id number] Location: [facility] MAIN OR NONE Procedure Requested: [id number] FL RETROGRADE UROGRAPHY IN OR Reason for [...] procedure note for additional details. READING SITE: [facility] NOTE: Parts of this report were generated with voice recognition software. J Robodrom Imagin2010;24(4):724-8. Performing Organization Address City/State/Zipcode Ph one Number LEVI * Stone Analysis Urinary (08/02/2019 10:21 AM SUPERVISOR TUNNEL HEADING) Stone Color Brown [facility] Stone Size CommentComment: [...] photograph will follow via computer, mail, or skip operator delivery. Stone Comment Comment [facility] Comment: Physician questions regarding Calculi Analysis [facility] at: [phone]. Disclaimer : Comment [facility] Comment: This test was developed and its performance characteristics determined by [facility]. It has not been cleared or approved by the Food and Drug Administration. Performed at: - [address] [id number] Hot Tar Roofer: Seamus Infante MD, Phone: [phone] Specimen Stone - Left Ureter Performing Organization Address [facility] one Number [facility] [address] [place], [place] [address] [facility] Interface [phone] [place] [address] [place] [address] * GLUCOSE POC (08/02/2019 8:56 AM SUPERVISOR TUNNEL HEADING) Only the most recent of 3 results within the time period is included. Glucose POC 237 (H) 70 - 100 mg/dL [facility] Specimen Performing Organization Address [facility] Ph one Number [facility] [address] [facility], [place] [phone] [facility] [address] [facility] Center[facility]ent[facility] Biosciences[facility]ug[facility] [place] [address], [facility] documented in this encounter Visit Diagnoses Not on filedocumented in this encounter Administered Medications Action Date Dose Rate Site Medication Order MAR Action albuterol (ACCUNEB) 2.5 mg/3 mL (0.083 %) nebulizer solution 2.5 mg 2.5 mg, Nebulization, Every 4 hours PRN , wheezing, Starting Wed08/02/19 at 1032 , PACU (only) 08/02/2019 8:27 AM SUPERVISOR TUNNEL HEADING 20 mg famotidine (PEPCID) injection 20 mg Given 20 mg, Intravenous, Once, Wed08/02/19 at 0830, For 1 dose, Pre-op 08/02/2019 8:27 AM SUPERVISOR TUNNEL HEADING 25 mcg fentaNYL (SUBLIMAZE) injection 25 mcg Given 25 mcg, Intravenous, Once, Wed08/02/19 at 0845, For 1 dose, Pre-op, Administer over 2 minutes; max dose for IVP is 2 mcg/kg. Note: Limit does not apply to patients who may be tolerant to opioid therapy or on continuous IV or PO opiat e therapy., 08/02/2019 10:39 AM SUPERVISOR TUNNEL HEADING 50 mcg fentaNYL (SUBLIMAZE) injection 25-50 mcg [...] anesthesia STAT if administered., 08/02/2019 8:33 AM SUPERVISOR TUNNEL HEADING 5 Units insulin regular (HumuLIN R) injection 5 Given Units 5 Units, Intravenous, Once, Indications : hyperglycemia, Wed08/02/19 at 0845, Fo r 1 dose, Pre-op 08/02/2019 10:27 AM SUPERVISOR TUNNEL HEADING 10 mL iohexol (OMNIPAQUE) 150 mg/mL (iohexol Given 300 mg/ml mixed 1: with normal saline) As needed, Starting Wed08/02/19 at 1027, Intra-op lactated ringers infusion 50 mL/hr, Intravenous, Continuous, Starting Wed08/02/19 at 1100, For 48 hours, PACU (only) 08/02/2019 8:27 AM SUPERVISOR TUNNEL HEADING 50 mL/hr 50 mL/hr lactated ringers infusion New Bag 50 mL/hr, Intravenous, Continuous, Starting Wed08/02/19 at 0830, For 48 hours, Pre-op 08/02/2019 10:27 AM SUPERVISOR TUNNEL HEADING 1 application Operativ e Site lidocaine (XYLOCAINE) [...] and refuses IM injection., 08/02/2019 9:55 AM SUPERVISOR TUNNEL HEADING 3,000 mL Operativ e Site sodium chloride irrigation 3000 mL Given (bladder) (NS) 0.9 % As needed, Starting Wed08/02/19 at 0954, Intra-op 3,000 mL Operative Site Given 08/02/2019 9:54 AM SUPERVISOR TUNNEL HEADING 08/02/2019 9:54 AM SUPERVISOR TUNNEL HEADING 1,000 mL Operativ e Site sterile water irrigation irrigation Given solution As needed, Starting Wed08/02/19 at 0954, Intra-op documented in this encounter
--- OUTSIDE RECORDS SUMMARY | 2020-03-16 13:53 | XMS REPORT | Encounter Summary ---
Author Author [facility] Organization [facility] Address Unknown Phone Unavailable Care Team Providers Care Cnc Machine Setter Name Role Phone Ebony Sharp MD PCP Encounter Details Care Team Description Date [place] [address] [place] [address] [phone] 07/24/2019 Telephone [facility] [address] [place], [place] [phone] Social History Date Tobacco Use Types Packs/Day [...] Marleen Arellano CMA - 08/10/2019 8:49 AM TIRE AND LUBE TECHNICIAN Spoke with the pharmacist, cancelled refill for Cipro and oxycodone, patient no longer needs AND LUBE TECHNICIAN * Telephone Encounter - Ying Malik - 07/24/2019 10:05 AM TIRE AND LUBE TECHNICIAN Scheduled for Cysto, L RPG, URS, Laser Litho, Stent Placement @ [facility]/OP 07/23 09/10 09:30, s/w Anamaria, s/w Brock/VERNON, s/w patient, aware/agreeable. la AND LUBE TECHNICIAN documented in this encounter Plan of Treatment Not on filedocumented as of this encounter Visit Diagnoses Not on filedocumented in this encounter
--- OUTSIDE RECORDS SUMMARY | 2020-03-16 13:53 | XMS REPORT | Encounter Summary ---
Author Author [facility] Organization [facility] Address Unknown Phone Unavailable Care Team Providers Care Meat Blender Name Role Phone Ebony Sharp MD PCP Reason for Visit * Reason Comments Other Encounter Details Care Team Description Date Type Department Ebony Sharp MD [address] [facility] [address] [place], [place] [phone] Other 07/17/2019 Refill [facility] Prim[facility] Care - [facility] [address] [facility] [address] [place], [place] [phone] Social History Date Tobacco Use Types Packs/Day [...]
--- OUTSIDE RECORDS SUMMARY | 2020-03-16 13:53 | XMS REPORT | Encounter Summary ---
Author Author [facility] Organization [facility] Address Unknown Phone Unavailable Care Team Providers Care Retread Mold Operator Name Role Phone Ebony Sharp MD [...] Date Type Department Celso Palma, DO [address] [place] [address] [phone] Acute bronchitis, unspecified organism ( Primary Dx); COPD exacerbation (HCC) 08/28/2019 Emergency [facility] [address] [place] [address] Social History Date Tobacco Use Types Packs/Day [...] Comments Vital Sign 161/89 08/28/2019 4:15 PM HYDROPULPER Blood Pressure 94 08/28/2019 3:39 PM HYDROPULPER Pulse 37.3 C (99.2 F) 08/28/2019 1:50 PM HYDROPULPER Temperature 18 08/28/2019 3:39 PM HYDROPULPER Respiratory Rate 94% 08/28/2019 4:15 PM HYDROPULPER Oxygen Saturation - - Inhaled Oxygen Concentration 102.1 kg (225 lb) 08/28/2019 11:11 AM HYDROPULPER Weight - - Height 43.94 08/10/2019 8:35 AM HYDROPULPER Body Mass Index documented in this encounter Discharge Instructions * Attachments The following attachments cannot be sent through Care Everywhere.* COPD FLARE (INDONESIAN) * Bronchitis, Acute (Beninese) documented in this encounter Medications at Time [...] A/vit Take by mouth 0 C/biotin/zinc/copper daily. (QGCH-MPQY-PODL,VIT A,C-BIOTIN, ORAL) 06/26/2019 12/24/2019 amitriptyline (ELAVIL) 25 [...] Celso Palma DO - 08/28/2019 2:39 PM HYDROPULPER 08/28/2019 [facility] History Chief Complaint Patient presents [...] Refusal of blood transfusions as patient is Scientology Sleep apnea CPAP use Type 2 diabetes mellitus with hyperglycemia, with long-term current use of i nsulin ([facility]) 06/29/2016 Urinary calculi Urinary incontinence Urinary [...] STENT PLACEMENT; Surgeon: Darin Huber MD; Location: [facility] Main OR; Service: Urology; Laterality: Left; CYSTOSCOPY, RETROGRADE PYELOGRAM, URETEROSCOPY, LASERLITHOTRIPSY, WITH URETE RAL STENT PLACEMENT Left 08/02/2019 Procedure: CYSTOSCOPY, LEFT RETROGRADE PYELOGRAM, LEFT URETEROSCOPY, LASER LITH OTRIPSY, LEFT URETERAL STENT EXCHANGE; Surgeon: Darin Huber MD; Location: [facility] Main OR; Service: Urology; Laterality: Left; HAND SURGERY Left 03/09/2019 [facility] REPAIR HYSTERECTOMY OOPHORECTOMY REMOVAL, HARDWARE, FOOT OR ANKLE Left 04/09/2017 Procedure: LEFT ANKLE REMOVAL OF HARDWARE WITH REVISION LEFT ANKLE ARTHRODESIS; Surgeon: Adelaida Olivas MD; Location: [facility] Main OR; Service: Orthopedics; Later ality: Left; REPAIR, INCISIONAL HERNIA, LAPAROSCOPIC, USING MESH N/A 05/25/2018 Procedure: LAPAROSCOPIC INCISIONAL HERNIA REPAIR WITH MESH; Surgeon: Medardo Tate MD; Location: [facility] Main OR; Service: General; Laterality: N/A; TONSILLECTOMY [...] Room Air . Interpretation: normal 2:41 PM [facility] Results for orders placed or [...] Dispo None Celso Palma DO 08/30/19 1203 OPULPER documented in this encounter Plan of Treatment Not on filedocumented as of this encounter Procedures Comments Procedure Name Priority Date/Time Associated Diag nosis XR CHEST SINGLE VIEW STAT 08/28/2019 FRONTAL 3:12 PM HYDROPULPER COMPLETE BLOOD COUNT STAT 08/28/2019 3:00 PM HYDROPULPER BASIC METABOLIC PANEL STAT 08/28/2019 3:00 PM HYDROPULPER ECG STAT 08/28/2019 11:14 AM HYDROPULPER documented in this encounter Results * XR Chest single view frontal (08/28/2019 3:12 PM HYDROPULPER) Specimen Impressions Performed At Stable bandlike opacity in the left midlung zone like ly MCKESSON fibrosis/scarring. No discrete focal co nsolidation. READING SITE: [facility] Narrative Performed At Patient: ISIAH BENÍTEZ Sex#: F #: [id number] Jose #: [id number] Location: [facility] ED SED- Procedure Requested: [id number] XR CHEST SINGLE VIEW FRONTAL Reason for [...] Rad Results In - 08/28/2019 3:26 PM HYDROPULPER Patient: ISIAH BENÍTEZ Sex#: F #: [id number] Jose#: [id number] Location: [facility] ED SED- Procedure Requested: [id number] XR CHEST SINGLE VIEW FRONTAL Reason for [...] * Basic Metabolic Panel (08/28/2019 3:00 PM HYDROPULPER) Sodium 136 133 - 147 [facility]L [facility] Potassium 4.1 3.5 - 5.3 MEQ/L [facility] Chloride 100 96 - 112 MEQ/L [facility] [place] [facility] Carbon Dioxide 29 20 - 32 MEQ/L [facility] [place] [facility] Anion Gap 7 5 - 17 [facility] [place] [facility] Calcium 9.0 8.4 - 10.5 mg/dL [facility] [place] [facility] Glucose 260 (H) 70 - 100 mg/dL [facility] [place] [facility] Blood Urea 16 7 - 26 mg/dL [facility] Nitrogen [facility] [place] [facility] Creatinine 1.0 0.4 - 1.1 mg/dL [facility] [place] [facility] eGFR Female AA 66 60 - 200 [facility] mL/min/1.73sq m [facility] [place] [facility] eGFR Female 55 (L) 60 - 200 [facility] Non-AA mL/min/1.73sq [facility] [place] [facility] Specimen Blood Performing Organization Address City/State/Zipcode Ph one Number [place] [facility] [address] [place] [address] [place] [facility] [address] [facility] [place] [address] [facility] [place] * Complete Blood Count (08/28/2019 3:00 PM HYDROPULPER) [facility] WBC 9.79 4.00 - 11.00 TH/uL [facility] eugenia [facility] [place] [facility] RBC 4.42 4.00 - 5.00 MIL/uL [facility] [place] [facility] Hemoglobin 14.3 12.0 - 15.0 g/dL [facility] [place] [facility] Hematocrit 43 36 - 45 % [facility] [place] [facility] MCV 97 80 - 99 fL [facility] [place] [facility] MCH 32 27 - 34 pg [facility] [place] [facility] MCHC 33 32 - 36 % [facility] Cedric [facility] [place] [facility] RDW 13.0 11.5 - 14.5 % [facility] [place] [facility] Platelet Count 151 140 - 400 TH/uL [facility] MPV 9.9 9.4 - 12.3 fL [facility] Nucleated RBCs 0 0 - 0 /100 [facility] Specimen Blood Performing Organization Address City/[facility] Ph one Number [facility] [address] [facility] [place] [address] [place] [facility] [address] [facility] [place] [address] [facility] [place] [facility] * Electrocardiogram (ECG) (08/28/2019 11:14 AM HYDROPULPER) QRSd 102 TRACEMASTER QT 396 TRACEMASTER QTC 446 TRACEMASTER ECGHR 76 TRACEMASTER ECGPR 152 TRACEMASTER Specimen Narrative Performed At [facility] Test Date: 2019-08-28 Pat Name: ISIAH BENÍTEZ Department: ERS Room: Gender: Female Contract Accountant: [id number] : 1950 Requested By: NIMO OCHOA Order Number: [id number] Reading MD: Measurements Intervals [place] Rate: 76 P: 58 RI: 152 QRS: 65 QRSD: 102 T: 59 QT: 396 QTc: 446 Interpretive Statements SINUS RHYTHM Procedure Note Interface, External Ris In - 08/28/2019 11:15 AM HYDROPULPER [facility] ED Test Date: 2019-08-28 Pat Name: ISIAH BENÍTEZ Department: ERS Room: Gender: Female Contract Accountant: [id number] : 1950 Requested By: NIMO OCHOA Order Number: [id number] Reading MD: Measurements Intervals [place] Rate: 76 P: 58 RI: 152 QRS: 65 QRSD: 102 T: 59 QT: 396 QTc: 446 Interpretive Statements SINUS RHYTHM Performing Organization Address City/[facility] Ph one Number TRACEMASTER documented in this encounter Visit Diagnoses Diagnosis Acute bronchitis, unspecified organism COPD exacerbation (HCC) Obstructive chronic bronchitis with exa cerbation documented in this encounter Administered Medications Action Date Dose Rate Site Medication Order MAR Action 08/28/2019 4:05 PM HYDROPULPER 50 mcg fentaNYL (SUBLIMAZE) injection 50 mcg Given 50 mcg, Intravenous, Once, Wed08/28/19 a t 1506, For 1 dose, Administer over 2 minutes; max dose for IVP is 2 mcg/kg. Note: Limit does not apply to patients who may be tolerant to opioid therapy o r on continuous IV or PO opiate therapy., 08/28/2019 3:39 PM HYDROPULPER 3 mL ipratropium-albuterol (DUO-NEB) 0.5-3 Given mg/3 mL nebulizer solution 3 mL 3 mL, Inhalation, Once, Wed08/28/19 at 1506, For 1 dose 08/28/2019 2:56 PM HYDROPULPER 125 mg methylPREDNISolone sod suc(PF) Given (Solu-MEDROL) injection 125 mg 125 mg, Intravenous, Once, Wed08/28/19 a t 1440, For 1 dose documented in this encounter"
--- OUTSIDE RECORDS SUMMARY | 2020-03-16 13:53 | XMS REPORT | Encounter Summary ---
Author Author [facility] Organization [facility] Address Unknown Phone Unavailable Care Team Providers Care Registrar Museum Name Role Phone Ebony Sharp MD PCP Reason for Visit * Reason Comments Medication questions Encounter Details Care Team Description Date Type Department Fiorella Jackson RN Medication questions 07/17/2019 Telephone [facility] [address] [place] [address] Social History Date Tobacco Use Types Packs/Day [...] Fiorella Jackson RN - 07/18/2019 9:42 AM CLOTH PATTERN MAKER Order placed and patient notified. H PATTERN MAKER * Telephone Encounter - Fiorella Jackson RN - 07/17/2019 3:27 PM CLOTH PATTERN MAKER Insurance not covering trospium. They will cover oxybutynin er please advise, astrid lowry ! H PATTERN MAKER documented in this encounter Plan of Treatment Not on filedocumented as of this encounter Visit Diagnoses Not on filedocumented in this encounter
--- OUTSIDE RECORDS SUMMARY | 2020-03-16 13:53 | XMS REPORT | Encounter Summary ---
Author Author [facility] Organization [facility] Address Unknown Phone Unavailable Care Team Providers Care County Supervisor Name Role Phone Ebony Sharp MD PCP Reason for Visit * Auth/Cert Referred By Contact Referred To Contact Status Reason Specialty Diagnoses / Procedures Diagnoses N20.0 P rocedures CYSTO/URETERO W/LITHOTRIPSY &INDWELL STENT INSRT CYSTOSCOPY, LEFT RETROGRADE PYELOGRAM, LEFT URETEROSCOPY, LASER LITHOTRIPSY, LEFT URETERAL STENT PLACEMENT Encounter Details Care Team Description Date Type Department Medardo Pierce MD [address] [place] [address] [phone] [place] [address] [place] [address] [phone] 08/02/2019 Anesthesia [facility] [address] [place] [address] Anesthesia Record Responsible Anesthesiologist Anesthesia Start Time [...] by serena Airway placement: N/A; Placed By: Plate Former; Site: Oral; Device: LMA; Size: 4; Attempts: [...] Medardo Pierce MD - 08/02/2019 11:40 AM FIRE PREVENTION RESEARCH ENGINEER Anesthesia Post Evaluation Procedure(s):CYSTOSCOPY, LEFT RETROGRADE PYELOGRAM, [...] SpO2 95 % filed at 08/02/2019 1110 PREVENTION RESEARCH ENGINEER * Anesthesia Preprocedure Evaluation - Medardo Pierce MD - 08/02/2019 8:13 AM FIRE PREVENTION RESEARCH ENGINEER Relevant Problems No relevant active problems Anesthesia [...] and supraglottic airway device Plan discussed with TANK TRUCK DRIVER. Anesthetic plan and risks discussed with patient. Use of blood products discussed with patient whom did not consent to blood produ cts. Special considerations: Buddhism. Post-operative analgesia: routine analgesia and antiemetics Recovery plan: PACU Risk factors for PONV: female and non smoker PONV Risk: moderate Notes LMA ok as NPO per guidelines and no active reflux or nausea. Risks/benefits/alternatives discussed with patient and all questions sought and answered. Patient wishes to proceed. SASHA precautions and strong pre-oxygenation please. Poor dentition PREVENTION RESEARCH ENGINEER documented in this encounter Plan of Treatment Not on filedocumented as of this encounter Visit Diagnoses Not on filedocumented in this encounter Administered Medications Action Date Dose Rate Site Medication Order MAR Action 08/02/2019 9:35 AM FIRE PREVENTION RESEARCH ENGINEER 2 g ceFAZolin (ANCEF) injection Given As needed, Starting Wed08/02/19 at 0935, Anesthesia Intra-op 08/02/2019 9:37 AM FIRE PREVENTION RESEARCH ENGINEER 100 mg lidocaine (pf) (XYLOCAINE-MPF) 20 mg/mL Given (2 %) injection Intravenous, As needed, Starting Wed08/02/19 at 0937, Anesthesia Intra-op 08/02/2019 10:18 AM FIRE PREVENTION RESEARCH ENGINEER 4 mg ondansetron (ZOFRAN) injection Given Intravenous, As needed, Starting Wed08/02/19 at 1018, Anesthesia Intra-op 08/02/2019 10:07 AM FIRE PREVENTION RESEARCH ENGINEER 100 mcg phenylephrine HCl in 0.9% NaCl Given (NEOSYNEPHRINE) 1 mg/10 mL (100 mcg/mL) injection Intravenous, As needed, Starting Wed08/02/19 at 1007, Anesthesia Intra-op 08/02/2019 9:38 AM FIRE PREVENTION RESEARCH ENGINEER 200 mg propofol (DIPRIVAN) injection Given Intravenous, As needed, Starting Wed08/02/19 at 0938, Anesthesia Intra-op documented in this encounter
--- OUTSIDE RECORDS SUMMARY | 2020-03-16 13:53 | XMS REPORT | Encounter Summary ---
Author Author [facility] Organization [facility] Address Unknown Phone Unavailable Care Team Providers Care Cinder Worker Name Role Phone Ebony Sharp MD PCP Reason for Visit * Reason Comments Other Encounter Details Care Team Description Date Type Department Ebony Sharp MD [address] [facility] [address] [place], [place] [id number] Other 08/25/2019 Refill [facility] [address] [facility] [address] [place], [place] [id number] Social History Date Tobacco Use Types Packs/Day [...]
--- OUTSIDE RECORDS SUMMARY | 2020-03-16 13:53 | XMS REPORT | Encounter Summary ---
Author Author [facility] Organization [facility] Address Unknown Phone Unavailable Care Team Providers Care Or First Assist Registered Nurse Name Role Phone Ebony Sharp MD PCP Reason for Referral * Testing (Routine) Referred By Contact Referred To Contact Status Reason Specialty Diagnoses / [place] [address] [place] [address] [place] [address] [place] [address] Closed Urology Diagnoses Nephrolithiasis Kidney stones P rocedures Cystoscopy with Stent Pull Reason for Visit * Reason Comments Nephrolithiasis post op Encounter Details Care Team Description Date [place] [address], [place] [phone] Kidney stones (Primary Dx); Nephrolithiasis; Renal calculus 08/10/2019 Procedure visit [facility] [address], [place] [id number] Social History Date Tobacco Use Types Packs/Day [...] Comments Vital Sign 130/92 08/10/2019 8:35 AM CAR TESTER Blood Pressure 96 08/10/2019 8:35 AM CAR TESTER Pulse - - Temperature - - Respiratory Rate - - Oxygen Saturation - - Inhaled Oxygen Concentration 102.1 kg (225 lb) 08/10/2019 8:35 AM CAR TESTER Weight 152.4 cm (5') 08/10/2019 8:35 AM CAR TESTER Height 43.94 08/10/2019 8:35 AM CAR TESTER Body Mass Index documented in this encounter Patient Instructions * Patient Instructions* Darin Huber MD - 08/10/2019 8:30 AM CAR TESTER Kidney Stones: Are You at Risk? People [...] [] [] Do you live in the [facility].S. or another hot climate? [] [] [...] in salt and meat content? (Eating a btlg-oeqhgn-dzznkvw di et is a risk for uric [...] how to prevent them. Date Last Reviewed: 08/23/201619999732-9972 [employer]. [address] [place] [address] 712 7. All rights reserved. This information is not intended as a substitute for pro fessional medical care. Always follow your healthcare professional's instruction s. TESTER documented in this encounter Progress Notes * Darin Huber MD - 08/10/2019 8:30 AM CAR TESTER Urology follow up note Darin Huber Encounter [...] day. 30 tablet 0 vit A/vit C/biotin/zinc/copper (TEPI-POIE-MXKD,VIT A,C-BIOTIN, ORAL) Take by mouth daily. No [...] She und erwent a CT scan at [facility] that demonstrated proximal a 1.5 [...] 2months with Renal US. Electronically signed by: Dairn Huber 08/10/2019 8:45 AM TESTER documented in this encounter Plan of Treatment Order Schedule Name Type Priority Associated Diag noses Ordered: 08/10/2019 Cystoscopy with Stent Procedure Routine Nephroli thiasis Pull Kidney stones documented as of this encounter Procedures Comments Procedure Name Priority Date/Time Associated Diag nosis POCT UA W MICRO ONLY Routine 08/10/[address] ones 8:50 AM CAR TESTER documented in this encounter Results * POCT UA w Micro Only (08/10/2019 8:50 AM CAR TESTER) Appearance, Urine Glucose Urine 100 (A) Negative mg/dL Bilirubin Urine Negative Negative Ketones Urine Negative Negative Specific 1.030 1.001 - 1.030 [place], UA Hemoglobin Large (A) Negative Urine PH [...]
--- OUTSIDE RECORDS SUMMARY | 2020-03-16 13:54 | XMS REPORT | Encounter Summary ---
Author Author [facility] Organization [facility] Address Unknown Phone Unavailable Care Team Providers Care College Physics Instructor Name Role Phone Ebony Sharp MD PCP Encounter Details Care Team Description Date [place] [address] [place] [address] [phone] Nephrolithiasis (Primary Dx) 07/13/2019 Orders Only [facility] [address] [place] [address] Social History Date Tobacco Use Types Packs/Day [...]
--- OUTSIDE RECORDS SUMMARY | 2020-03-16 13:54 | XMS REPORT | Encounter Summary ---
Author Author [facility] Organization [facility] Address Unknown Phone Unavailable Care Team Providers Care Dianetic Counselor Name Role Phone Ebony Sharp MD PCP Reason for Visit * Auth/Cert Referred By Contact Referred To Contact Status Reason Specialty Diagnoses / Procedures Diagnoses R10.9 P rocedures CYSTO/URETERO W/LITHOTRIPSY &INDWELL STENT INSRT CYSTOSCOPY, LEFT RETROGRADE PYELOGRAM, LEFT URETEROSCOPY, LASER LITHOTRIPSY, LEFT URETERAL STENT PLACEMENT Encounter Details Care Team Description [place] [address] [place] [address] [phone] CYSTOSCOPY, LEFT RETROGRADE PYELOGRAM, L EFT URETEROSCOPY, LEFT HOLMIUM LASER LITHOTRIPSY WITH STONE EXTRACTION, AND LEFT URETERAL STENT PLACEMENT 06/28/2019 Surgery [facility] [address] [place] [address] Social History Date Tobacco Use Types Packs/Day [...] Comments Vital Sign 152/95 06/28/2019 11:30 AM COTTON CLASSER Blood Pressure 78 06/28/2019 11:30 AM COTTON CLASSER Pulse 36.6 C (97.8 F) 06/28/2019 10:15 AM COTTON CLASSER Temperature 13 06/28/2019 11:30 AM COTTON CLASSER Respiratory Rate 93% 06/28/2019 11:30 AM COTTON CLASSER Oxygen Saturation - - Inhaled Oxygen Concentration 101.2 kg (223 lb) 06/22/2019 10:26 AM CDT Weight 152.4 cm (5') 06/22/2019 10:26 AM CDT Height 43.55 06/22/2019 10:26 AM CDT Body Mass Index documented in this encounter Discharge Instructions * Pre-Procedure Instructions* Rosy Hart RN - 06/22/2019 10:41 AM CDT Current Outpatient Medications Medication Sig Note: vit A/vit C/biotin/zinc/copper ([id number],VIT A,C-BIOTIN, ORAL) Take by mouth daily. Note:stop [...] A/vit Take by mouth 0 C/biotin/zinc/copper daily. ([id number],VIT A,C-BIOTIN, ORAL) 08/26/2017 08/28/2019 albuterol (VENTOLIN HFA) [...] Darin Huber MD - 06/28/2019 10:07 AM COTTON CLASSER Brief Operative Note Caren Ernestina Patten 06/28/2019 Event Time In Time Out Procedure / Incision Start 915 Pre-op Diagnosis: Right nephrolithiasis Post-op Diagnosis: Right nephrolithiasis Procedure: CYSTOSCOPY, LEFT RETROGRADE PYELOGRAM, LEFT URETEROSCOPY, LASER LITHOTRIPSY, LEF T URETERAL STENT PLACEMENT, Left - Urethra Surgeon(s) and Role: * Darin Huber MD - Primary Anesthesia Type: General Staff: Utility Plant Operative: Renaldo Menchaca RN Scrub Person: Estefany Correa Anesthesiologist: Medardo Pierce MD SCRAP COLLECTOR: Rosa M White CRNA Findings: Large left lower pole stone Estimated Blood Loss: 10 mL Specimens: None Implants: Implant Name Type Inv. Item Serial No. Certified Marine Mechanic Lot No. LRB No. Used Action IMPLANT STENT URETERAL CONTOUR 7FR X 24CM W/O GUIDWIRE 180-232/[id number] - LOG [id number] Non-Tissue Implant IMPLANT STENT URETERAL CONTOUR 7FR X 24CM W/O GUIDWIR E 180-232/[id number] Detectent [id number] Left 1 Implanted Complications: None Description of [...] began the procedure by inserting the 21 Cook Islander rigid cystoscope transurethral without difficulty once in the bladder identified the left ureteral orifice. T his was then cannulated with a 5 [place]er open-ended stent retrograde pyelogram de monstrated a [...] access sheath. I then selected a 7 [place] Islander by 24 cm stent was passed to the renal pelvis under fluoroscopic guidance I did call the urinary bladder under di rect visual guidance. An 18 [place]er Ballard catheter was placed in patient's bladd er was irrigated out. This is placed to gravity drainage. Darin Huber MD Date: 06/28/2019 Time: 10:08 AM ON CLASSER documented in this encounter Plan of Treatment Not on filedocumented as of this encounter Procedures Comments Procedure Name Priority Date/Time Associated Diag nosis GLUCOSE POC Routine 06/28/2019 10:20 AM COTTON CLASSER CYSTOSCOPY, RETROGRADE 06/28/2019 R10.9 PYELOGRAM, URETEROSCOPY, 8:59 AM COTTON CLASSER LASER LITHOTRIPSY, WITH URETERAL STENT PLACEMENT Special Needs HOLMIUM LASER ORDERED PER RADHA BUSTOS MEDICARE- ARMJEHOVAH 'S WITNESS- REFUSED BLOOD PRODUCTS SASHA WITH CPAP USE OCCASIONAL LY O2 PER NC USE PRN GLUCOSE POC Routine 06/28/2019 7:58 AM COTTON CLASSER documented in this encounter Results * GLUCOSE POC (06/28/2019 10:20 AM COTTON CLASSER) Only the most recent of 2 results within the time period is included. Glucose POC 263 (H) 70 - 100 mg/dL [facility] Specimen Performing Organization Address City/State/Zipcode Ph one Number [facility] [address] [place] [facility] [place] [address] [facility] [address] [facility] [address], [facility] documented in this encounter Visit Diagnoses Not on filedocumented in this encounter Administered Medications Action Date Dose Rate Site Medication Order MAR Action albuterol (ACCUNEB) 2.5 mg/3 mL (0.083 %) nebulizer solution 2.5 mg 2.5 mg, Nebulization, Every 4 hours PRN , wheezing, Starting Wed06/28/19 at 1016, PACU (only) 06/28/2019 8:29 AM COTTON CLASSER 20 mg famotidine (PEPCID) injection 20 mg Given 20 mg, Intravenous, Once, Wed06/28/19 a t 0830, For 1 dose, Pre-op 06/28/2019 10:59 AM COTTON CLASSER 25 mcg fentaNYL (SUBLIMAZE) injection 25-50 mcg Given 25-50 mcg, Intravenous, Every 5 min PRN , pain, Starting Wed06/28/19 at 1016, PAC U (only), Give only if RR is greater than 8 breaths/min. Maximum of 200 mcg in 2 hours., 25 mcg Given 06/28/2019 10:46 AM COTTON CLASSER 50 mcg Given 06/28/2019 10:37 AM COTTON CLASSER 06/28/2019 11:26 AM COTTON CLASSER 5 mg hydrALAZINE (APRESOLINE) injection 5 mg Given 5 mg, Intravenous, Once, Wed06/28/19 at 1145, For 1 dose, PACU (only) 06/28/2019 11:10 AM COTTON CLASSER 2 tablets HYDROcodone-acetaminophen (NORCO) 5-325 Given mg per tablet 1-2 tablet 1-2 tablet, Oral, Every 4 hours PRN, moderate pain (pain score 4-6), Startin g Wed06/28/19 at 1013, PACU (only), Do no t exceed 4 GM/DAY of acetaminophen. If 6 5 or older do not exceed 3 GM/DAY. If chronic alcoholic do not exceed 2 GM/DAY., 06/28/2019 9:29 AM COTTON CLASSER 50 mL Operativ e Site iohexol (OMNIPAQUE) 300 mg iodine/mL Given injection As needed, Starting Wed06/28/19 at 0929 , Intra-op 06/28/2019 11:28 AM COTTON CLASSER 5 mg labetalol (NORMODYNE,TRANDATE) injection Given 5 mg 5 mg, Intravenous, Once, Wed06/28/19 at 1145, For 1 dose, PACU (only) 06/28/2019 8:29 AM COTTON CLASSER 50 mL/hr 50 mL/hr lactated ringers infusion New Bag 50 mL/hr, Intravenous, Continuous, Starting Wed06/28/19 at 0830, For 48 hours, Pre-op 06/28/2019 9:30 AM COTTON CLASSER 1 application Operativ e Site lidocaine (XYLOCAINE) [...] and refuses IM injection., 06/28/2019 9:30 AM COTTON CLASSER 3,000 mL Operativ e Site sodium chloride irrigation 3000 mL Given (bladder) (NS) 0.9 % As needed, Starting Wed06/28/19 at 0930 , Intra-op 3,000 mL Operative Site Given 06/28/2019 9:20 AM COTTON CLASSER 06/28/2019 9:30 AM COTTON CLASSER 1,000 mL Operativ e Site sterile water irrigation irrigation Given solution As needed, Starting Wed06/28/19 at 0930 , Intra-op documented in this encounter
--- OUTSIDE RECORDS SUMMARY | 2020-03-16 13:54 | XMS REPORT | Encounter Summary ---
Author Author [facility] Organization [facility] Address Unknown Phone Unavailable Care Team Providers Care Actor Understudy Name Role Phone Ebony Sharp MD PCP Reason for Visit * Reason Comments Other Encounter Details Care Team Description Date Type Department Ebony Sharp MD [address] [facility] [address] [place], [place] [address] Other 07/14/2019 Refill [facility] Prim[facility] Care - [facility] [address] [facility] [address] [place], [place] [id number] Social History Date Tobacco Use Types Packs/Day [...]
--- OUTSIDE RECORDS SUMMARY | 2020-03-16 13:54 | XMS REPORT | Encounter Summary ---
Author Author [facility] Organization [facility] Address Unknown Phone Unavailable Care Team Providers Care Wheel Mill Operator Name Role Phone Ebony Sharp MD PCP Reason for Visit * Auth/Cert Referred By Contact Referred To Contact Status Reason Specialty Diagnoses / Procedures Diagnoses R10.9 P rocedures CYSTO/URETERO W/LITHOTRIPSY &INDWELL STENT INSRT CYSTOSCOPY, LEFT RETROGRADE PYELOGRAM, LEFT URETEROSCOPY, LASER LITHOTRIPSY, LEFT URETERAL STENT PLACEMENT Encounter Details Care Team Description Date Type Department Medardo Pierce MD [address] [place] [address] [phone] [place] [address] [place] [address] [phone] 06/28/2019 Anesthesia [facility] [address] [place] [address] Anesthesia Record Responsible Anesthesiologist Anesthesia Start Time [...] 904; Able to mas k 06/28/19904 by oRsa M lyons Airway ventilate prior to placement: Yes; Amy omalley CRNA Placed By: Kindergarten Assistant; Site: Oral; Device: LMA; Size: 3; Attempts: [...] Medardo Pierce MD - 06/28/2019 1:52 PM POWER PLANT SUPERINTENDENT Anesthesia Post Evaluation Procedure(s):CYSTOSCOPY, LEFT RETROGRADE PYELOGRAM, [...] SpO2 93 % filed at 06/28/2019 1130 R PLANT SUPERINTENDENT * Anesthesia Preprocedure Evaluation - Medardo Pierce MD - 06/28/2019 8:05 AM POWER PLANT SUPERINTENDENT Relevant Problems No relevant active problems Anesthesia [...] and supraglottic airway device Plan discussed with HUMAN RESOURCES MANAGER MANUFACTURING. Anesthetic plan and risks discussed with patient. Use of blood products discussed with patient whom did not consent to blood produ cts. Special considerations: Mu-ism. Post-operative analgesia: routine analgesia and antiemetics Recovery plan: PACU Risk factors for PONV: female and non smoker PONV Risk: moderate Notes LMA ok as NPO per guidelines and no active reflux or nausea. Risks/benefits/alternatives discussed with patient and all questions sought and answered. Patient wishes to proceed. Poor dentition R PLANT SUPERINTENDENT documented in this encounter Plan of Treatment Not on filedocumented as of this encounter Visit Diagnoses Not on filedocumented in this encounter Administered Medications Action Date Dose Rate Site Medication Order MAR Action 06/28/2019 9:08 AM POWER PLANT SUPERINTENDENT 2 g ceFAZolin (ANCEF) injection Given As needed, Starting Wed06/28/19 at 0908 , Anesthesia Intra-op 06/28/2019 10:13 AM POWER PLANT SUPERINTENDENT 25 mcg fentaNYL (SUBLIMAZE) injection Given Intravenous, As needed, Starting Wed06/28/19 at 0909, Anesthesia Intra-op 25 mcg Given 06/28/2019 10:05 AM POWER PLANT SUPERINTENDENT 25 mcg Given 06/28/2019 9:09 AM POWER PLANT SUPERINTENDENT 06/28/2019 9:04 AM POWER PLANT SUPERINTENDENT 50 mg lidocaine (pf) (XYLOCAINE-MPF) 10 mg/mL Given (1 %) injection Intravenous, As needed, Starting Wed06/28/19 at 0904, Anesthesia Intra-op 06/28/2019 8:59 AM POWER PLANT SUPERINTENDENT 1 mg midazolam (PF) (VERSED) injection Given Intravenous, As needed, Starting Wed06/28/19 at 0859, Anesthesia Intra-op 06/28/2019 9:48 AM POWER PLANT SUPERINTENDENT 4 mg ondansetron (ZOFRAN) injection Given Intravenous, As needed, Starting Wed06/28/19 at 0948, Anesthesia Intra-op 06/28/2019 9:04 AM POWER PLANT SUPERINTENDENT 200 mg propofol (DIPRIVAN) injection Given Intravenous, As needed, Starting Wed06/28/19 at 0904, Anesthesia Intra-op documented in this encounter
--- OUTSIDE RECORDS SUMMARY | 2020-03-16 13:54 | XMS REPORT | Encounter Summary ---
Author Author [facility] Organization [facility] Address Unknown Phone Unavailable Care Team Providers Care Mushroom Farmer Name Role Phone Ebony Sharp MD PCP Reason for Referral * Surgical (Routine) Referred By Contact Referred To Contact Status Reason Specialty Diagnoses / [place] [address], [place] [address] [place] [address] [place] [address] Closed Urology Diagnoses Nephrolithiasis P rocedures External Uro Surgery Reason for Visit * Reason Comments Nephrolithiasis F/U Encounter Details Care Team Description [place] [address] [place] [address] [phone] Nephrolithiasis (Primary Dx); Kidney stones; Renal calculus 07/14/2019 Procedure visit [facility] [address] [place], [place] [id number] Social History Date Tobacco Use Types Packs/Day [...] Comments Vital Sign 162/78 07/14/2019 1:44 PM PRESIDENT CELEBRITY ACQUISTION Blood Pressure 73 07/14/2019 1:44 PM PRESIDENT CELEBRITY ACQUISTION Pulse - - Temperature - - Respiratory Rate - - Oxygen Saturation - - Inhaled Oxygen Concentration - - Weight - - Height - - Body Mass Index documented in this encounter Progress Notes * Darin Huber MD - 07/14/2019 1:50 PM PRESIDENT CELEBRITY ACQUISTION Urology follow up note Darin Huber Encounter [...] NIGHT. E11.9 10 mL 5 insulin syringe ([employer] ULTRA-FINE) 0.3 mL 31 gauge x 5/16 Inject under the skin daily. use as directed 100 each 0 insulin syringe 0.3 mL 31 gauge x 5/16 USE DIRECTED 100 each 1 ipratropium-albuterol (DUO-NEB) 0.5-3 mg/3 mL nebulizer Inhale 3 mL 4 (four) times a day. (Patient taking differently: Inhale 3 mL 4 (four) times a day as n eeded. ) 360 mL 11 methen-m.blue-s.kuej-uimil-iyo 118-10-40.8-36 mg cap Take 1 capsule by [...] needed. 30 tablet 1 vit A/vit C/biotin/zinc/copper ([id number],VIT A,C-BIOTIN, ORAL) Take by mouth daily. No [...] und erwent a CT scan at [facility] that demonstrated proximal a 1.5 cm [...] signed by: Darin Huber 07/14/2019 2:00 PM IDENT CELEBRITY ACQUISTION documented in this encounter Plan of Treatment Not on filedocumented as of this encounter Procedures Comments Procedure Name Priority Date/Time Associated Diag nosis POCT UA W MICRO ONLY Routine 07/14/2019 Nephrolit hiasis 2:00 PM PRESIDENT CELEBRITY ACQUISTION documented in this encounter Results * POCT UA w Micro Only (07/14/2019 2:00 PM PRESIDENT CELEBRITY ACQUISTION) Appearance, Urine Glucose Urine 500 (A) Negative mg/dL Bilirubin Urine Small (A) Negative Ketones Urine Negative Negative Specific 1.030 1.001 - 1.030 Hensel, UA Hemoglobin Large (A) Negative Urine PH Urine 5.0 5.0 - 8.0 Protein Urine 300 (A) Negative Qual Urobilinogen 0.2 Negative EU/dL Urine Nitrite Urine Negative Negative Leukocyte Trace (A) Negative Esterase Microscopic Packed RBC Examination Specimen Urine * Culture, Surgical Urine (SLRL) (07/14/2019 1:59 PM PRESIDENT CELEBRITY ACQUISTION) Isolate 1 4000 Cfu/ml (A) [facility] Isolate 1 [place] albicans (A) [facility] Isolate 1 Susceptibility To Follow (A) [facility] Isolate 1 In the absence of symptoms, [facility] [place] is generally Hospital Lab considered normal ciera. No therapy indicated unless high risk (, or neutropenic) or undergoing urologic procedure. If Ballard catheter present, remove or replace when able. (A) Isolate 2 1000 Cfu/ml (A) [facility] Isolate 2 Staphylococcus epidermidis (A) [facility] Isolate 3 >100,000 Cfu/ml (A) [facility] Isolate 3 Lactobacillus jensenii (A) [facility] Isolate 3 No susceptibility testing done [facility] on this isolate (A) Hospital Lab Isolate 4 >100,000 Cfu/ml (A) [facility] Isolate 4 Actinomyces neuii (A) [facility] Isolate 4 No susceptibility testing done [facility] on this isolate (A) Hospital Lab Specimen Urine Antibiotic Method Susceptibility Organism FLUCONAZOLE <=1: Sensitive [place] albicans VORICONAZOLE <=0.12: Sensitive [place] albicans VANCOMYCIN 1: Sensitive Staphylococcus epidermidis NITROFURANTOIN <=16: Sensitive Staphylococcus epidermidis OXACILLIN >1: Resistant Staphylococcus epidermidis TETRACYCLINE 1: Sensitive Staphylococcus epidermidis Performing Organization Address City/State/[facility] Ph one Number [address] [address] LABORATORIES [facility] [address] [place] [address] documented in this encounter Visit Diagnoses Diagnosis Nephrolithiasis Calculus of kidney Kidney stones Calculus of kidney Renal calculus Calculus of kidney documented in this encounter
--- OUTSIDE RECORDS SUMMARY | 2020-03-16 13:54 | XMS REPORT | Encounter Summary ---
Author Author [facility] Organization [facility] Address Unknown Phone Unavailable Care Team Providers Care Director Of Digital Platforms Name Role Phone Ebony Sharp MD PCP Encounter Details Care Team Description Date Type Department Kidney stone 06/21/2019 Imaging [facility] [address] [place] [address] Social History Date Tobacco Use Types Packs/Day [...] MCASHWINJEFFREY Sex#: F #: [id number] Jose #: [id number] Location: [facility] XR Procedure Requested: [id number] XR ABDOM EN SINGLE VIEW AP Reason [...] ISIAH BENÍTEZ Sex#: F #: [id number] Jose#: [id number] Location: [facility] XR Procedure Requested: [id number] XR ABDOMEN SINGLE VIEW AP Reason for [...]
--- OUTSIDE RECORDS SUMMARY | 2020-03-16 13:54 | XMS REPORT | Encounter Summary ---
Author Author [facility] Organization [facility] Address Unknown Phone Unavailable Care Team Providers Care Mobile Engineer Name Role Phone Ebony Sharp MD PCP Reason for Visit * Reason Comments acute Encounter Details Care Team Description Date Type Department Fiorella Jackson RN acute 07/06/2019 Telephone [facility] [address] [place] [address] Social History Date Tobacco Use Types Packs/Day [...] Fiorella Jackson RN - 07/10/2019 1:44 PM TIRE MAN Patient called and lm about flank pain and pyridium. Called patient back and lm no more pyridium ! She can take otc azo if needed. Ad vised her to call the office for update of sx. MAN * Telephone Encounter - Fiorella Jackson RN - 07/06/2019 12:55 PM TIRE MAN lmtcb MAN * Telephone Encounter - Fiorella Jackson RN - 07/06/2019 10:11 AM TIRE MAN Notified patient and pharmacy. MAN * Telephone Encounter - Fiorella Jackson RN - 07/06/2019 9:57 AM TIRE MAN Patient calling, s/p 06/28 CYSTOSCOPY, LEFT RETROGRADE [...] needed. Please advise if needed. Thanks ! MAN documented in this encounter Plan of Treatment Not on filedocumented as of this encounter Visit Diagnoses Not on filedocumented in this encounter
--- OUTSIDE RECORDS SUMMARY | 2020-03-16 13:54 | XMS REPORT | Encounter Summary ---
Author Author [facility] Organization [facility] Address Unknown Phone Unavailable Care Team Providers Care Rope Silica Machine Operator Name Role Phone Ebony Sharp MD PCP Reason for Visit * Auth/Cert Referred By Contact Referred To Contact Status Reason Specialty Diagnoses / Procedures Diagnoses R10.9 P rocedures CYSTO/URETERO W/LITHOTRIPSY &INDWELL STENT INSRT CYSTOSCOPY, LEFT RETROGRADE PYELOGRAM, LEFT URETEROSCOPY, LASER LITHOTRIPSY, LEFT URETERAL STENT PLACEMENT Encounter Details Care Team Description Date [place] [address] [place] [address] [phone] Renal calculus (Primary Dx) 06/28/2019 [facility] [address] [place] [address] Social History Date Tobacco Use Types Packs/Day [...] Comments Vital Sign 152/95 06/28/2019 11:30 AM SUPERVISOR SPECIAL EFFECTS Blood Pressure 78 06/28/2019 11:30 AM SUPERVISOR SPECIAL EFFECTS Pulse 36.6 C (97.8 F) 06/28/2019 10:15 AM SUPERVISOR SPECIAL EFFECTS Temperature 13 06/28/2019 11:30 AM SUPERVISOR SPECIAL EFFECTS Respiratory Rate 93% 06/28/2019 11:30 AM SUPERVISOR SPECIAL EFFECTS Oxygen Saturation - - Inhaled Oxygen Concentration 101.2 kg (223 lb) 06/22/2019 10:26 AM CDT Weight 152.4 cm (5') 06/22/2019 10:26 AM CDT Height 43.55 06/22/2019 10:26 AM CDT Body Mass Index documented in this encounter Discharge Instructions * Pre-Procedure Instructions* Rosy Hart RN - 06/22/2019 10:41 AM CDT Current Outpatient Medications Medication Sig Note: vit A/vit C/biotin/zinc/copper (GEIC-POWD-RLHV,VIT A,C-BIOTIN, ORAL) Take by mouth daily. Note:stop [...] A/vit Take by mouth 0 C/biotin/zinc/copper daily. (AKTO-JEHM-WPRH,VIT A,C-BIOTIN, ORAL) 08/26/2017 08/28/2019 albuterol (VENTOLIN HFA) [...] Darin Huber MD - 06/28/2019 10:07 AM SUPERVISOR SPECIAL EFFECTS Brief Operative Note Caren Do Board 06/28/2019 Event Time In Time Out Procedure / Incision Start 915 Pre-op Diagnosis: Right nephrolithiasis Post-op Diagnosis: Right nephrolithiasis Procedure: CYSTOSCOPY, LEFT RETROGRADE PYELOGRAM, LEFT URETEROSCOPY, LASER LITHOTRIPSY, LEF T URETERAL STENT PLACEMENT, Left - Urethra Surgeon(s) and Role: * Darin Huber MD - Primary Anesthesia Type: General Staff: Assistant Housekeeping Manager: Renaldo Menchaca RN Scrub Person: Estefany Correa Anesthesiologist: Medardo Pierce MD COLORIST PHOTOGRAPHY: Rosa M White CRNA Findings: Large left lower pole stone Estimated Blood Loss: 10 mL Specimens: None Implants: Implant Name Type Inv. Item Serial No. Second Class Welder Lot No. LRB No. Used Action IMPLANT STENT URETERAL CONTOUR 7FR X 24CM W/O GUIDWIRE 180-232/[id number] - LOG [id number] Non-Tissue Implant IMPLANT STENT URETERAL CONTOUR 7FR X 24CM W/O GUIDWIR E 180-232/[id number] AmVac [id number] Left 1 Implanted Complications: None Description of [...] began the procedure by inserting the 21 [place] rigid cystoscope transurethral without difficulty once in the bladder identified the left ureteral orifice. T his was then cannulated with a 5 [place] open-ended stent retrograde pyelogram de monstrated a [...] access sheath. I then selected a 7 [place] by 24 cm stent was passed to the renal pelvis under fluoroscopic guidance I did call the urinary bladder under di rect visual guidance. An 18 [place] Ballard catheter was placed in patient's bladd er was irrigated out. This is placed to gravity drainage. Darin Huber MD Date: 06/28/2019 Time: 10:08 AM RVISOR SPECIAL EFFECTS documented in this encounter Plan of Treatment Not on filedocumented as of this encounter Procedures Comments Procedure Name Priority Date/Time Associated Diag nosis GLUCOSE POC Routine 06/28/2019 10:20 AM SUPERVISOR SPECIAL EFFECTS CYSTOSCOPY, RETROGRADE 06/28/2019 R10.9 PYELOGRAM, URETEROSCOPY, 8:59 AM SUPERVISOR SPECIAL EFFECTS LASER LITHOTRIPSY, WITH URETERAL STENT PLACEMENT Special Needs HOLMIUM LASER ORDERED PER LINDA BSHUMANA [facility]- ARMJEHOVAH 'S WITNESS- REFUSED BLOOD PRODUCTS SASHA WITH CPAP USE OCCASIONAL LY O2 PER NC USE PRN GLUCOSE POC Routine 06/28/2019 7:58 AM SUPERVISOR SPECIAL EFFECTS documented in this encounter Results * GLUCOSE POC (06/28/2019 10:20 AM SUPERVISOR SPECIAL EFFECTS) Only the most recent of 2 results within the time period is included. Glucose POC 263 (H) 70 - 100 mg/dL [facility] Specimen Performing Organization Address City/State/Zipcode Ph one Number [facility] [address] [place] [address] [facility] [address] [facility] [place] [address], [facility] documented in this encounter Visit Diagnoses Diagnosis Renal calculus Calculus of kidney documented in this encounter Administered Medications Action Date Dose Rate Site Medication Order MAR Action albuterol (ACCUNEB) 2.5 mg/3 mL (0.083 %) nebulizer solution 2.5 mg 2.5 mg, Nebulization, Every 4 hours PRN , wheezing, Starting Wed06/28/19 at 1016, PACU (only) 06/28/2019 8:29 AM SUPERVISOR SPECIAL EFFECTS 20 mg famotidine (PEPCID) injection 20 mg Given 20 mg, Intravenous, Once, Wed06/28/19 a t 0830, For 1 dose, Pre-op 06/28/2019 10:59 AM SUPERVISOR SPECIAL EFFECTS 25 mcg fentaNYL (SUBLIMAZE) injection 25-50 mcg Given 25-50 mcg, Intravenous, Every 5 min PRN , pain, Starting Wed06/28/19 at 1016, PAC U (only), Give only if RR is greater than 8 breaths/min. Maximum of 200 mcg in 2 hours., 25 mcg Given 06/28/2019 10:46 AM SUPERVISOR SPECIAL EFFECTS 50 mcg Given 06/28/2019 10:37 AM SUPERVISOR SPECIAL EFFECTS 06/28/2019 11:26 AM SUPERVISOR SPECIAL EFFECTS 5 mg hydrALAZINE (APRESOLINE) injection 5 mg Given 5 mg, Intravenous, Once, Wed06/28/19 at 1145, For 1 dose, PACU (only) 06/28/2019 11:10 AM SUPERVISOR SPECIAL EFFECTS 2 tablets HYDROcodone-acetaminophen (NORCO) 5-325 Given mg per tablet 1-2 tablet 1-2 tablet, Oral, Every 4 hours PRN, moderate pain (pain score 4-6), Startin g Wed06/28/19 at 1013, PACU (only), Do no t exceed 4 GM/DAY of acetaminophen. If 6 5 or older do not exceed 3 GM/DAY. If chronic alcoholic do not exceed 2 GM/DAY., 06/28/2019 11:28 AM SUPERVISOR SPECIAL EFFECTS 5 mg labetalol (NORMODYNE,TRANDATE) injection Given 5 mg 5 mg, Intravenous, Once, Wed06/28/19 at 1145, For 1 dose, PACU (only) 06/28/2019 8:29 AM SUPERVISOR SPECIAL EFFECTS 50 mL/hr 50 mL/hr lactated ringers infusion [...]
--- OUTSIDE RECORDS SUMMARY | 2020-03-16 13:54 | XMS REPORT | Encounter Summary ---
Author Author [facility] Organization [facility] Address Unknown Phone Unavailable Care Team Providers Care Civil Designer Name Role Phone Ebony Sharp MD PCP Encounter Details Care Team Description Date [place] [address] [place] [address] [phone] 06/21/2019 Orders Only [facility] [address] [place], [place] [id number] Social History Date Tobacco Use Types Packs/Day [...] Routine Comment: CULTURE, URINE, ROUTINE MICRO NUMBER: [id number] TEST STATUS: FINAL SPECIMEN SOURCE: URINE SPECIMEN QUALITY: ADEQUATE RESULT: 50,000-100,000 CFU/mL of Lactobacillus species May represent colonizers from external and internal genitalia. No further testing (including susceptibility) will be performed. Specimen Performing Organization Address City/State/[facility] Ph one Number [facility] [address] [place] [phone] documented in this encounter Visit Diagnoses Not on filedocumented in this encounter
--- OUTSIDE RECORDS SUMMARY | 2020-03-16 13:54 | XMS REPORT | Encounter Summary ---
Author Author [facility] Organization [facility] Address Unknown Phone Unavailable Care Team Providers Care Paralegals Name Role Phone Ebony Sharp MD PCP Encounter Details Care Team Description Date [place] [address] [place], [place] [id number] Kidney stone 07/14/2019 Imaging [facility] Radiol ogy Appointment [address] [place] [phone] Social History Date Tobacco Use Types Packs/Day [...] Routine 07/14/2019 Kidn ey stone 1:32 PM PHYSICAL FITNESS TRAINER documented in this encounter Results * XR Abdomen single view AP (07/14/2019 1:32 PM PHYSICAL FITNESS TRAINER) Specimen Impressions Performed At 1.Left sided double-J ureteral stent. There is amorph ous calcifications MCKESSON overlying the inferior left renal shado w measuring up to 1.5 cm 2. Non-obstructive bowel gas pattern. Dictation location: [facility] Narrative Performed At Patient: ISIAH BENÍTEZ Sex#: F #: [id number] Jose #: [id number] Location: BS XR 9 Procedure Requested: [id number] XR ABDOM EN SINGLE VIEW AP Reason [...] Rad Results In - 07/14/2019 3:18 PM PHYSICAL FITNESS TRAINER Patient: ISIAH BENÍTEZ Sex#: F #: [id number] Jose#: [id number] Location: XR Procedure Requested: [id number] XR ABDOMEN SINGLE VIEW AP Reason for [...] 2. Non-obstructive bowel gas pattern. Dictation location: [facility] Performing Organization Address City/State/Zipcode Ph one [facility] documented in this encounter Visit Diagnoses Diagnosis Kidney stone Calculus of kidney documented in this encounter
--- OUTSIDE RECORDS SUMMARY | 2020-03-16 13:54 | XMS REPORT | Encounter Summary ---
Author Author [facility] Organization [facility] Address Unknown Phone Unavailable Care Team Providers Care Grab Operator Name Role Phone Ebony Sharp MD PCP Reason for Visit * Reason Comments surgical clearance Encounter Details Care Team Description Date Type Department Santo Hernandez RN surgical clearance 06/21/2019 Telephone [facility] Primar [facility] [address] [facility] [address] [place], [place] [id number] Social History Date Tobacco Use Types Packs/Day [...]
--- OUTSIDE RECORDS SUMMARY | 2020-03-16 13:54 | XMS REPORT | Encounter Summary ---
Author Author [facility] Organization [facility] Address Unknown Phone Unavailable Care Team Providers Care Projects Manager Name Role Phone Ebony Sharp MD PCP Reason for Referral * Diagnostic Imaging (Routine) Referred By Contact Referred To Contact Status Reason Specialty Diagnoses / [place] [address] [place] [address] Pending Review Diagnoses Pain P rocedures FL Retrograde Urography in OR Reason for Visit * Auth/Cert Referred By Contact Referred To Contact Status Reason Specialty Diagnoses / Procedures Diagnoses R10.9 P rocedures CYSTO/URETERO W/LITHOTRIPSY &INDWELL STENT INSRT CYSTOSCOPY, LEFT RETROGRADE PYELOGRAM, LEFT URETEROSCOPY, LASER LITHOTRIPSY, LEFT URETERAL STENT PLACEMENT Encounter Details Care Team Description [place] [address] [place] [address] [phone] Pain 06/28/2019 [facility] [address] [place] [address] Social History Date Tobacco Use Types Packs/Day [...] A/vit Take by mouth 0 C/biotin/zinc/copper daily. (UBOJ-WVDT-SQDW,VIT A,C-BIOTIN, ORAL) 08/26/2017 08/28/2019 albuterol (VENTOLIN HFA) [...] Routine 06/28/2019 Pain IN OR 10:25 AM CRAFT COORDINATOR documented in this encounter Results * FL Retrograde Urography in OR (06/28/2019 10:25 AM CRAFT COORDINATOR) Specimen Impressions Performed At Fluoroscopic support for the urology services. Plea se see operative LEVI report for details. READING SITE: [facility] Narrative Performed At Patient: ISIAH BENÍTEZ MCASHWINJEFFREY Sex#: F #: [id number] Jose #: [id number] Location: [facility] 1554 Procedure Requested: [id number] FL RETRO GRADE UROGRAPHY IN OR Reason [...] Rad Results In - 06/28/2019 11:15 AM CRAFT COORDINATOR Patient: ISIAH BENÍTEZ Sex#: F #: 1950 Jose#: [id number] Location: [facility] Procedure Requested: [id number] FL RETROGRADE UROGRAPHY IN OR Reason for [...] see operative report for details. READING SITE: [facility] Address City/State/Zipcode Ph one Number LEVI documented in this encounter Visit Diagnoses Diagnosis Pain Generalized pain documented in this encounter
--- OUTSIDE RECORDS SUMMARY | 2020-03-16 13:54 | XMS REPORT | Encounter Summary ---
Author Author [facility] Organization [facility] Address Unknown Phone Unavailable Care Team Providers Care Digital Photographic Printer Name Role Phone Ebony Sharp MD PCP Encounter Details Care Team Description Date [place] [address] [place] [address] [phone] 07/13/2019 Telephone [facility] [address] [place] [address] Social History Date Tobacco Use Types Packs/Day [...] Marleen Arellano CMA - 07/13/2019 2:08 PM TARGETEER No HIPPA form in chart left a message stating to return phone call regarding sandy roblero appointment ETEER documented in this encounter Plan of Treatment Not on filedocumented as of this encounter Visit Diagnoses Not on filedocumented in this encounter
--- OUTSIDE RECORDS SUMMARY | 2020-03-16 13:54 | XMS REPORT | Encounter Summary ---
Author Author [facility] Organization [facility] Address Unknown Phone Unavailable Care Team Providers Care Steam Clean Machine Operator Name Role Phone Ebony Sharp MD PCP Reason for Visit * Reason Comments Other Encounter Details Care Team Description Date Type Department Ebony Sharp MD [address] [facility] [address] [place], [place] [phone] Other 06/24/2019 Refill [facility] Primar y Care - [facility] [address] [facility] [address] [place], [place] [phone] Social History Date Tobacco Use Types Packs/Day [...]
--- OUTSIDE RECORDS SUMMARY | 2020-03-16 13:55 | XMS REPORT | Encounter Summary ---
Author Author [facility] Organization [facility] Address Unknown Phone Unavailable Care Team Providers Care Retail Product Demo Specialist Name Role Phone Ebony Sharp MD PCP Encounter Details Care Team Description Date Type Department Santo Hernandez RN 05/11/2019 Orders Only [facility] Primar y Care - [facility] [address] [facility] [address] [place], [place] [phone] Social History Date Tobacco Use Types Packs/Day [...]
--- OUTSIDE RECORDS SUMMARY | 2020-03-16 13:55 | XMS REPORT | Encounter Summary ---
Author Author [facility] Organization [facility] Address Unknown Phone Unavailable Care Team Providers Care Antenna Design Engineer Name Role Phone Ebony Sharp MD PCP Reason for Visit * Reason Comments Other Encounter Details Care Team Description Date Type Department Ebony Sharp MD [address] [facility] [address] [place], [place] [phone] Other 04/23/2019 Refill [facility] Primar y Care - East [address] [facility] [address] [place], [place] [address] Social History Date Tobacco Use Types Packs/Day [...]
--- OUTSIDE RECORDS SUMMARY | 2020-03-16 13:55 | XMS REPORT | Encounter Summary ---
Author Author [facility] Organization [facility] Address Unknown Phone Unavailable Care Team Providers Care Lead Inspector Name Role Phone Ebony Sharp MD PCP Reason for Visit * Reason Comments Post Op Exam Encounter Details Care Team Description Date Type Department Sharona Ruvalcaba, KADEN [address] [facility] [address] [place], [place] [phone] S/P carpal tunnel release (Primary Dx) 03/23/2019 Office Visit [facility] [address] [facility] [address] [place], [place] [address] Social History Date Tobacco Use Types Packs/Day [...] Ruvalcaba, KADEN - 03/23/2019 12:00 PM CDT [facility] [address] [facility] [address] [place] [address] Caren Patten 68 y.o. female : 1950 03/23/2019 Office Visit: Provider: Location of care: [facility] Chief Complaint Chief Complaint Patient presents [...] Allergic rhinitis Anxiety Bronchitis, chronic ([facility]) Cataract 2011, 2012 bilat cateract surgery Chronic pain disorder back, ribs, and ankle. COPD (chronic obstructive pulmonary disease) ([facility]) Depression Draining postoperative wound 08/08/2016 Endometriosis Essential hypertension Fractures [address] in Left ankle MATA (generalized anxiety disorder) 09/24/2015 Hernia of abdominal cavity Mixed hyperlipidemia 09/24/2015 Morbid obesity due to excess calories ([facility]) 07/10/2016 On home oxygen therapy 2L - usually needs if has an exerbation of COPD, or resp illness SASHA on CPAP Osteoarthritis Sleep apnea uses CPAP Type 2 diabetes mellitus with hyperglycemia, with long-term current use of i nsulin ([facility]) 06/29/2016 Urinary calculi Urinary tract infection Goldberg-Ekbom [...] file Gets together: Not on file Attends rastafari service: Not on file Active member of [...] * This record may include dictation using Halldis software. It may conta in inherent spelling [...]
--- OUTSIDE RECORDS SUMMARY | 2020-03-16 13:55 | XMS REPORT | Encounter Summary ---
Author Author [facility] Organization [facility] Address Unknown Phone Unavailable Care Team Providers Care Marketing And Outreach Coordinator Name Role Phone Ebony Sharp MD PCP Reason for Referral * MRI/CAT/PET Scan (Routine) Referred By Contact Referred To Contact Status Reason Specialty Diagnoses / Procedures Ebony Sharp MD [address] [place] [address] Closed Radiology Diagnoses Left flank pain P rocedures CT Abdomen Pelvis wo contrast Reason for Visit * MRI/CAT/PET Scan (Routine) Referred By Contact Referred To Contact Status Reason Specialty Diagnoses / Procedures Ebony Sharp MD [address] [place] [address] Closed Radiology Diagnoses Left flank pain P rocedures CT Abdomen Pelvis wo contrast Encounter Details Care Team Description Date Type Department Ebony Sharp MD 20 [facility] [address] [place] [address] [phone] Left flank pain 06/16/2019 [facility] [address] [place] [address] Social History Date Tobacco Use Types Packs/Day [...] Chronic obstructive pulmonary disease, unspecified COPD type ([facility]) 06/06/2019 07/28/2019 cephalexin (KEFLEX) 500 0 MG [...] the liver Stable ureteral diverticulum READING SITE: [facility] Narrative Performed At Patient: ISIAH BENÍTEZ Sex#: F #: [id number] Jose #: [id number] Location: [facility] [address] Procedure [address]: [id number] CT ABDOM EN PELVIS WO CONTRAST Reason [...] ISIAH BENÍTEZ Sex#: F #: 1950 Jose#: [id number] Location: [facility] CT Procedure Requested: [id number] CT ABDOMEN PELVIS WO CONTRAST Reason for [...] the liver Stable ureteral diverticulum READING SITE: [facility] Address City/State/Zipcode Ph one Number [place] documented in this encounter Visit Diagnoses Diagnosis Left flank pain Abdominal pain, unspecified site documented in this encounter
--- OUTSIDE RECORDS SUMMARY | 2020-03-16 13:55 | XMS REPORT | Encounter Summary ---
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 Care Utilization Supervisor Name Role Phone Ebony Sharp MD PCP Encounter Details Care Team Description Date Type Department Macy Davila 03/21/2019 Education [facility] [address] [facility] [address] [place], [place] [phone] Social History Date Tobacco Use Types Packs/Day [...] mind and bod y for surgery and intermediate accountant success post op GOAL: 150 min/week. Pt [...]
--- OUTSIDE RECORDS SUMMARY | 2020-03-16 13:55 | XMS REPORT | Encounter Summary ---
Author Author [facility] Organization [facility] Address Unknown Phone Unavailable Care Team Providers Care Senior Loss Control Specialist Name Role Phone Ebony Sharp MD PCP Reason for Visit * Reason Comments Other Encounter Details Care Team Description Date Type Department Ebony Sharp MD [address] [facility] [address] [place], [place] [phone] Other 04/17/2019 Refill [facility] Primar y Care - East [address] [facility] [address] [place], [place] [phone] Social History Date Tobacco Use Types Packs/Day [...]
--- OUTSIDE RECORDS SUMMARY | 2020-03-16 13:55 | XMS REPORT | Encounter Summary ---
Author Author [facility] Organization [facility] Address Unknown Phone Unavailable Care Team Providers Care Pulpit Operator Name Role Phone Ebony Sharp MD PCP Reason for Visit * Reason Comments Flank Pain Patient reports bilateral f lank pain and lower abd pain. patient reports nausea. patient reports pain with urina tion. Encounter Details Care Team Description Date Type Department Maggie Yap DO [address] [place] [address] [phone] Acute cystitis without hematuria (Primar y Dx) 05/26/2019 Emergency [facility] 05/27/2019 [address] [place] [address] Social History Date Tobacco Use Types Packs/Day [...] Care Everywhere.* Urinary Tract Infections (UTIs), Understanding (Barbadian) * Pancreatitis, Understanding (Barbadian) documented in this encounter Medications at Time [...] - 05/26/2019 10:00 PM CDT 05/26/2019 [facility] History Chief Complaint Patient [...] bleeding 08/08/2016 Allergic rhinitis Anxiety Bronchitis, chronic ([facility]) Cataract 2011, 2012 bilat cateract surgery Chronic pain disorder back, ribs, and ankle. COPD (chronic obstructive pulmonary disease) ([facility]) Depression Draining postoperative wound 08/08/2016 Endometriosis Essential hypertension Fractures [address] in Left ankle MATA (generalized anxiety disorder) 09/24/2015 Hernia of abdominal cavity Mixed hyperlipidemia 09/24/2015 Morbid obesity due to excess calories ([facility]) 07/10/2016 On home oxygen therapy 2L - usually needs if has an exerbation of COPD, or resp illness SASHA on CPAP Osteoarthritis Sleep apnea uses CPAP Type 2 diabetes mellitus with hyperglycemia, with long-term current use of i nsulin ([facility]) 06/29/2016 Urinary calculi Urinary tract [...] distress, normal lung sounds without wheezing or aircraft engine assembler ckles Cardiac: heart sound normal, no murmurs [...] of the rejected order with accession number [id number] 174. URINALYSIS MICROSCOPIC ONLY - Abnormal; Notable [...] CDT) Culture Result Three or more bacterial [facility] species isolated from urine Hospital Lab indicates colonization or fecal contamination. Submission of a repeat specimen is suggested. Isolate 1 Mixed ciera [facility] Lab Specimen Urine Performing Organization Address City/State/Zipcode Ph one Number [address] [address] LABORATORIES [facility] [address] [place] [address] * Urinalysis Microscopic Only (05/26/2019 11:05 PM CDT) Microscopic RBC 6 - 10 (A) 0 - 5 /hpf [facility] U[facility] Microscopic WBC 21-40 (A) 0 - 5 /hpf [facility] Epithelial Absent Absent [facility] Cells [facility] Hyaline Cast Large (A) Absent [facility] Bacteria Absent Absent [facility] Mucus Large (A) Absent [facility] Specimen Urine Performing Organization Address City/[facility] Ph one Number [facility] [address] [place], [place] [id number] [facility] [address] [place] [address] [facility] * Urinalysis Reflex (05/26/2019 11:05 PM CDT) Appearance, Yellow [facility] Urine [facility] Glucose Urine >=1000 (A) Negative mg/dL [facility] Bilirubin Urine Negative Negative [facility] Ketones Urine Negative Negative mg/dL [facility] Specific 1.024 1.001 - 1.030 [facility] [place], UA [facility] Hemoglobin Moderate (A) Negative [facility] Urine [facility] PH Urine 5.0 5.0 - 8.0 [facility] Protein Urine Negative Negative mg/dL [facility] Qual [facility] Urobilinogen Negative Negative EU/dL [facility] Urine [facility] Nitrite Urine NegativeComment: Culture Negative [facility] Ordered [facility] Leukocyte Negative Negative [facility] Esterase [facility] Specimen Urine Performing Organization Address City/State[facility] Ph one Number [facility] [address] [place] [address] [facility] [address] [place] [address] [facility] * CBC and Diff (manual diff if necessary) (05/26/2019 10:52 PM CDT) [facility] Signature WBC 9.34 4.00 - 11.00 TH/uL kate eugenia Israels [facility] RBC 4.11 4.00 - 5.00 MIL/uL [facility] Hemoglobin 13.3 12.0 - 15.0 g/dL [facility]ateeug[facility]ra[facility] Hematocrit 41 36 - 45 % [facility] MCV 100 (H) 80 - 99 fL [facility] MCH 32 27 - 34 pg [facility] MCHC 32 32 - 36 % [facility] RDW 12.8 11.5 - 14.5 % [facility] Platelet Count 178 140 - 400 TH/uL [facility] MPV 10.1 9.4 - 12.3 fL [facility]ugenia [facility] Nucleated RBCs 0 0 - 0 /100 [facility] % Neutrophils 58 45 - 78 % [facility] %Lymphocytes 29 15 - 47 % [facility] %Monocytes 9 0 - 12 % [facility] %Eosinophils 4 0 - 7 % [facility] %Basophils 1 0 - 2 % [facility] % Imm Grans 0 0 - 1 % [facility] # Granulocytes 5.37 1.7 - 6.8 TH/uL [facility] Cedric [facility] # Lymphocytes 2.67 1.0 - 3.3 TH/uL [facility] # Monocytes 0.82 0.2 - 0.9 TH/uL [facility] # Eosinophils 0.39 0.0 - 0.4 TH/uL [facility] # Basophils 0.06 0.0 - 0.1 TH/uL [facility] Specimen Blood Narrative Performed At This order is a replacement of the rejected order wit h accession number [facility] - [id number] [facility] Performing Organization Address City/[facility] Ph one Number [facility] [address] [facility], [place] [id number] [facility] [address] [place] [address] [facility] [address] [facility] [facility] [place] [address], [facility] * Lipase (05/26/2019 10:28 PM CDT) Pathologist [facility] Lipase 338 (H) 23 - 300 IU/L [facility] Specimen Blood Performing Organization Address City/[facility] one Number [facility] [address] [place], [place] [id number] [facility] [address] [place] [address] [facility] * Comprehensive Metabolic Panel (05/26/2019 10:28 PM CDT) Sodium 139 133 - 147 MEQ/L [facility] [place] [facility] Potassium 4.2 3.5 - 5.3 MEQ/L [facility] [place] Chloride 103 96 - 112 MEQ/L [facility]ra[facility] Carbon Dioxide 26 20 - 32 MEQ/L [facility] [place] [facility] Anion Gap 10 5 - 17 [facility] Calcium 8.9 8.4 - 10.5 mg/dL [facility] Glucose 321 (H) 70 - 100 mg/dL [facility] Protein Total 7.6 6.0 - 8.2 g/dL [facility] Serum [facility] Albumin 3.9 3.5 - 5.0 g/dL [facility] Alkaline 98 42 - 140 IU/L [facility] Phosphatase [facility] Alanine 32 0 - 34 IU/L [facility] Aminotransferas [facility] e [facility] Aspartate 39Comment: Specimen is 15 - 46 IU/L [facility] Aminotransferas slightly hemolyzed which may Cedric Hatfields e elevate the AST result. [facility] Bilirubin Total 0.4 0.2 - 1.3 mg/dL [facility] Blood Urea 15 7 - 26 mg/dL [facility] Nitrogen [facility] Creatinine 0.7 0.4 - 1.1 mg/dL [facility] eGFR Female AA 100 60 - 200 [facility] mL/min/1.73sq [facility] eGFR Female 84 60 - 200 [facility] Non-AA mL/min/1.73sq [facility] Lab Specimen Blood Performing Organization Address City/State/Zipcode Ph one Number [facility]IKI [address] [facility] [place] [address] [facility] [address] [facility] [place] [address] [facility] * CT Abdomen Pelvis wo contrast [...] ed ited the final report. READING SITE: [facility] Narrative Performed At Patient: ISIAH BENÍTEZ Sex#: Paulina #: [id number] Jose #: [id number] [place] [facility] Procedure Requested: [id number] CT ABDOM EN PELVIS WO CONTRAST Reason [...] ISIAH BENÍTEZ Sex#: F #: [id number] Jose#: [id number] Location: [facility] SED-10 Procedure Requested: [id number] CT ABDOMEN PELVIS WO CONTRAST Reason for [...] and/or edited the final report. READING SITE: [facility] Organization Address City/State/[facility] Ph one Edgar SIMS documented in this [...]
--- OUTSIDE RECORDS SUMMARY | 2020-03-16 13:55 | XMS REPORT | Encounter Summary ---
Author Author [facility] Organization [facility] Address Unknown Phone Unavailable Care Team Providers Care Broomcorn Seeder Name Role Phone Ebony Sharp MD PCP Encounter Details Care Team Description Date Type Department Ebony Sharp MD [address] [facility] [address] [place], [place] [id number] Left flank pain; Essential hypertension; Type 2 diabetes mellitus with hyperglycemia, 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); Hyperthyroidism 06/13/2019 Lab [facility] Primar y Care - Jhon[facility]'s [place] [address] [facility] [address] [facility] [place], [place] [id number] Social History Date Tobacco Use Types Packs/Day [...] very poorly controlled. You MUST see an laundry agent for management. This is far too complicated [...] 2:29 PM CDT) Culture Result No growth [facility] Lab Specimen Urine Performing Organization Address [facility] Ph one Number [address] [address] LABORATORIES [facility] [address] [place] [address] * Urinalysis Microscopic Only (06/13/2019 2:29 PM CDT) Microscopic RBC 11 - 20 (A) 0 - 5 /hpf [facility] Lab Microscopic WBC 21-40 (A) 0 - 5 /hpf [facility] Epithelial Large (A) Absent [facility] Lab Hyaline Cast Absent Absent [facility] Bacteria Absent Absent [facility] Lab Specimen Urine Performing Organization Address City/[facility] Ph one Number [address] [place] [address] LABORATORIES [facility] [address] [place] [address] * Thyroid Stimulating Hormone (06/13/2019 2:29 PM CDT) Pathologist [facility] Thyroid 0.19 (L) 0.47 - 4.68 uIU/mL [facility] Hormone Specimen Blood Performing Organization Address [facility] Ph one Number [facility] [address] [place] [address] LABORATORIES [facility] [address] [place] [address] * T4 Free (06/13/2019 2:29 PM CDT) Pathologist [facility] T4 Free 1.0 0.8 - 2.2 ng/dL [facility] Specimen Blood Performing Organization Address City/[facility] Ph one Number [facility] [address] [place] [address] LABORATORIES [facility] [address] [place] [address] * Hemoglobin A1C (06/13/2019 2:29 PM CDT) Pathologist [facility] Hemoglobin A1C 11.0 (H) 4.0 - 5.6 % [facility] Non-diabetic 4.0 - 5.6 % Prediabetes 5.7 - 6.4 % Diabetes >= 6.5 % Specimen Blood Performing Organization Address City/[facility] Ph one Number [facility] [address] [place] [address] LABORATORIES [facility] [address] [place] [address] * Comprehensive Metabolic Panel (06/13/2019 2:29 PM CDT) Pathologist [facility] Sodium 136 133 - 147 MEQ/L [facility] Potassium 4.4 3.5 - 5.3 MEQ/L [facility] Chloride 98 96 - 112 MEQ/L [facility] Lab Carbon Dioxide 29 20 - 32 MEQ/L [facility] Anion Gap 9 5 - 17 [facility] Calcium 9.4 8.4 - 10.5 mg/dL [facility] Glucose 301 (H) 70 - 100 mg/dL [facility] Protein Total 7.9 6.0 - 8.2 g/dL [facility] Serum [facility] Lab Albumin 4.3 3.5 - 5.0 g/dL [facility] Lab Alkaline 104 42 - 140 IU/L [facility] Lab Alanine 39 (H) 0 - 34 IU/L [facility] e Aspartate 41 15 - 46 IU/L [facility] Lab e Bilirubin Total 0.2 0.2 - 1.3 mg/dL [facility] Blood Urea 12 7 - 26 mg/dL [facility] Lab Creatinine 0.7 0.4 - 1.1 mg/dL [facility] Lab eGFR Female AA 100 60 - 200 [facility] mL/min/1.73sq [facility] Lab eGFR Female 84 60 - 200 [facility] Non-AA mL/min/1.73sq [facility] Lab Specimen Blood Performing Organization Address City/State/Zipcode Ph one Number [address] [address] LABORATORIES [facility] [address] [place] [address] * CBC and Diff (manual diff if necessary) (06/13/2019 2:29 PM CDT) WBC 9.20 4.00 - 11.00 TH/uL [facility] RBC 4.55 4.00 - 5.00 MIL/uL [facility] Hemoglobin 14.9 12.0 - 15.0 g/dL [facility] Hematocrit 46 (H) 36 - 45 % [facility] MCV 100 (H) 80 - 99 fL [facility] MCH 33 27 - 34 pg [facility] MCHC 33 32 - 36 % [facility] RDW 13.3 11.5 - 14.5 % [facility] Platelet Count 208 140 - 400 TH/uL [facility] MPV 10.3 9.4 - 12.3 fL [facility] Nucleated RBCs 0 0 - 0 /100 [facility] % Neutrophils 53 45 - 78 % [facility] %Lymphocytes 34 15 - 47 % [facility] %Monocytes 9 0 - 12 % [facility] %Eosinophils 3 0 - 7 % [facility] %Basophils 1 0 - 2 % [facility] % Imm Grans 0 0 - 1 % [facility] # Granulocytes 4.91 1.70 - 6.80 TH/uL [facility] # Lymphocytes 3.14 1.00 - 3.30 TH/uL [facility] # Monocytes 0.79 0.20 - 0.90 TH/uL [facility] # Eosinophils 0.28 0.00 - 0.40 TH/uL [facility] # Basophils 0.08 0.00 - 0.10 TH/uL [facility] Specimen Blood Performing Organization Address City/State/[place] [address] LABORATORIES [facility] [address] [place] [address] * Urinalysis Reflex (06/13/2019 2:29 PM CDT) Appearance, Yellow [facility] Lab Glucose Urine >=1000 (A) Negative mg/dL [facility] Bilirubin Urine Negative Negative [facility] Ketones Urine Negative Negative mg/dL [facility] Specific >=1.030 1.001 - 1.030 [facility] Lab Hemoglobin Small (A) Negative [facility] PH Urine 5.0 5.0 - 8.0 [facility] Protein Urine Trace (A) Negative mg/dL [facility] Urobilinogen Negative Negative EU/dL [facility] Nitrite Urine NegativeComment: Culture Negative [facility] Lab Leukocyte Negative Negative [facility] Lab Specimen Urine Performing Organization Address City/State/[facility] Ph one Number [facility] [address] [place] [address] LABORATORIES [facility] [address] [place] [address] documented in this encounter Visit Diagnoses Diagnosis Left flank pain Abdominal pain, unspecified site Essential hypertension Unspecified essential hypertension Type 2 diabetes mellitus with hyperglyc emia, 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) Hyperthyroidism Thyrotoxicosis without mention of goite r or other cause, without mention of thyrotoxic crisis or storm documented in this encounter
--- OUTSIDE RECORDS SUMMARY | 2020-03-16 13:55 | XMS REPORT | Encounter Summary ---
Author Author [facility] Organization [facility] Address Unknown Phone Unavailable Care Team Providers Care Cable Tower Operator Name Role Phone Ebony Sharp MD PCP Reason for Referral * MRI/CAT/PET Scan (Routine) Referred By Contact Referred To Contact Status Reason Specialty Diagnoses / Procedures Ebony Sharp MD [address] [facility] 200 [place] [address] [facility] [place] [address] Closed Radiology Diagnoses Left flank pain P rocedures CT Abdomen Pelvis wo contrast * Consultation (Routine) Referred By Contact Referred To Contact Status Reason Specialty Diagnoses / Procedures Ebony Sharp MD [address] [facility] [address] [place] [address] [address] [facility] [address] [place] [address] Closed Specialty Services Urology Diagnoses Required Left flank pain Reason for Visit * Reason Comments Follow-up Hospital FU Encounter Details Care Team Description Date Type Department Ebony Sharp MD 20 [facility] [address] [place] [id number] [phone] Type 2 diabetes mellitus with hyperglyce prasanna, 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) (Primary Dx); Mixed hyperlipidemia; Essential hypertension; Left flank pain; Hyperthyroidism 06/13/2019 Office Visit [facility] [address] [facility] [address] [place] [address] Social History Date Tobacco Use Types Packs/Day [...] - 06/13/2019 1:30 PM CDT CC: Follow-up ([facility] ) HPI : Isiah Benítez is a 68 y.o. female who presents with complaints of Follow-up ([facility] ) Patient here for a follow up. [...] on phone: None Gets together: None Attends rastafari service: None Active member of club or [...] the liver Stable ureteral diverticulum READING SITE: [facility] Narrative Performed At Patient: ISIAH BENÍTEZ Sex#: F #: 1950 Jose #: [id number] Location: [facility] [place] 23 Procedure Requested: [id number] CT ABDOM EN PELVIS WO CONTRAST Reason [...] ISIAH BENÍTEZ Sex#: Paulina #: 1950 Jose#: [id number] Location: [facility] [place] Procedure Requested: [id number] CT ABDOMEN PELVIS WO CONTRAST Reason for [...] the liver Stable ureteral diverticulum READING SITE: [facility] Performing Organization Address [facility] one Number LEVI * Thyroid Stimulating Hormone (06/13/2019 2:29 PM CDT) Thyroid 0.19 (L) 0.47 - 4.68 uIU/mL [facility] Hormone Specimen Blood Performing Organization Address [facility] one Number [facility] [address] [place] [address] LABORATORIES [facility] [address] [place] [address] * T4 Free (06/13/2019 2:29 PM CDT) T4 Free 1.0 0.8 - 2.2 ng/dL [facility] Specimen Blood Performing Organization Address [facility] one Number [facility] [address] [place] [address] LABORATORIES [facility] [address] [place] [address] * Hemoglobin A1C (06/13/2019 2:29 PM CDT) Pathologist [facility] Hemoglobin A1C 11.0 (H) 4.0 - 5.6 % [facility] Comment: Hospital Lab Non-diabetic 4.0 - 5.6 % Prediabetes 5.7 - 6.4 % Diabetes >= 6.5 % Specimen Blood Performing Organization Address [facility] one Number [facility] [address] [place] [address] LABORATORIES [facility] [address] [place] [address] * Comprehensive Metabolic Panel (06/13/2019 2:29 PM CDT) Sodium 136 133 - 147 MEQ/L [facility] Potassium 4.4 3.5 - 5.3 MEQ/L [facility] Chloride 98 96 - 112 MEQ/L [facility] Carbon Dioxide 29 20 - 32 MEQ/L [facility] Anion Gap 9 5 - 17 [facility] Calcium 9.4 8.4 - 10.5 mg/dL [facility] Glucose 301 (H) 70 - 100 mg/dL [facility] Protein Total 7.9 6.0 - 8.2 g/dL [facility] Serum [facility] Albumin 4.3 3.5 - 5.0 g/dL [facility] Alkaline 104 42 - 140 IU/L [facility] Alanine 39 (H) 0 - 34 IU/L [facility] e Aspartate 41 15 - 46 IU/L [facility] [place] e Bilirubin Total 0.2 0.2 - 1.3 mg/dL [facility] Blood Urea 12 7 - 26 mg/dL [facility] Creatinine 0.7 0.4 - 1.1 mg/dL [facility] eGFR Female AA 100 60 - 200 [facility] mL/min/1.73sq [facility] eGFR Female 84 60 - 200 [facility] Non-AA mL/min/1.73sq [facility] Specimen Blood Performing Organization Address City/State/[facility] Ph one Number [address] [address] LABORATORIES [facility] [address] [place] [address] * CBC and Diff (manual diff if necessary) (06/13/2019 2:29 PM CDT) WBC 9.20 4.00 - 11.00 TH/uL [facility] RBC 4.55 4.00 - 5.00 MIL/uL [facility] Hemoglobin 14.9 12.0 - 15.0 g/dL [facility] Hematocrit 46 (H) 36 - 45 % [facility] MCV 100 (H) 80 - 99 fL [facility] MCH 33 27 - 34 pg [facility] MCHC 33 32 - 36 % [facility] RDW 13.3 11.5 - 14.5 % [facility] Platelet Count 208 140 - 400 TH/uL [facility] MPV 10.3 9.4 - 12.3 fL [facility] Nucleated RBCs 0 0 - 0 /100 [facility] % Neutrophils 53 45 - 78 % [facility] %Lymphocytes 34 15 - 47 % [facility] %Monocytes 9 0 - 12 % [facility] %Eosinophils 3 0 - 7 % [facility] %Basophils 1 0 - 2 % [facility] % Imm Grans 0 0 - 1 % [facility] # Granulocytes 4.91 1.70 - 6.80 TH/uL [facility] # Lymphocytes 3.14 1.00 - 3.30 TH/uL [facility] # Monocytes 0.79 0.20 - 0.90 TH/uL [facility] # Eosinophils 0.28 0.00 - 0.40 TH/uL [facility] # Basophils 0.08 0.00 - 0.10 TH/uL [facility] Specimen Blood Performing Organization Address City/State/Zipcode Ph one Number [address] [address] LABORATORIES [facility] [address] [place] [address] * Urinalysis Reflex (06/13/2019 2:29 PM CDT) Appearance, Yellow [facility] Glucose Urine >=1000 (A) Negative mg/dL [facility] Bilirubin Urine Negative Negative [facility] Ketones Urine Negative Negative mg/dL [facility] Specific >=1.030 1.001 - 1.030 [facility] Hemoglobin Small (A) Negative [facility] PH Urine 5.0 5.0 - 8.0 [facility] Protein Urine Trace (A) Negative mg/dL [facility] Urobilinogen Negative Negative EU/dL [facility] Nitrite Urine NegativeComment: Culture Negative [facility] Leukocyte Negative Negative [facility] Specimen Urine Performing Organization Address City/State/Zipcode Ph one Number [facility] [address] [place] [address] LABORATORIES [facility] [address] [place] [address] documented in this encounter Visit Diagnoses Diagnosis Type 2 diabetes mellitus with hyperglyc emia, 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) Mixed hyperlipidemia Essential hypertension Unspecified essential hypertension Left flank pain Abdominal pain, unspecified site Hyperthyroidism Thyrotoxicosis without mention of goite r or other cause, without mention of thyrotoxic crisis or storm documented in this encounter
--- OUTSIDE RECORDS SUMMARY | 2020-03-16 13:55 | XMS REPORT | Encounter Summary ---
Author Author [facility] Organization [facility] Address Unknown Phone Unavailable Care Team Providers Care Stencil Printer Name Role Phone Ebony Sharp MD PCP Reason for Visit * Reason Comments Medication Refill Encounter Details Care Team Description Date Type Department Ebony Sharp MD [address] [facility] [address] [place], [place] [id number] Medication Refill 06/16/2019 Refill [facility] [address] [facility] [address] [place], [place] [id number] Social History Date Tobacco Use Types Packs/Day [...]
--- OUTSIDE RECORDS SUMMARY | 2020-03-16 13:55 | XMS REPORT | Encounter Summary ---
Author Author [facility] Organization [facility] Address Unknown Phone Unavailable Care Team Providers Care Glass Deposition Tender Name Role Phone Ebony Sharp MD PCP Reason for Visit * Reason Comments Other Encounter Details Care Team Description Date Type Department Ebony Sharp MD [address] [facility] [address] [place], [place] [phone] Other 04/28/2019 Refill [facility] [address] [facility] [address] [place], [place] [phone] Social History Date Tobacco Use Types Packs/Day [...]
--- OUTSIDE RECORDS SUMMARY | 2020-03-16 13:55 | XMS REPORT | Encounter Summary ---
Author Author [facility] Organization [facility] Address Unknown Phone Unavailable Care Team Providers Care J2Ee Developer Name Role Phone Ebony Sharp MD PCP Reason for Visit * Reason Comments Other Encounter Details Care Team Description Date Type Department Ebony Sharp MD [address] [facility] [address] [place], [place] [phone] Other 04/19/2019 Refill [facility] [address] [facility] [address] [place], [place] [phone] Social History Date Tobacco Use Types Packs/Day [...]
--- OUTSIDE RECORDS SUMMARY | 2020-03-16 13:55 | XMS REPORT | Encounter Summary ---
Author Author [facility] Organization [facility] Address Unknown Phone Unavailable Care Team Providers Care Sidewalk Inspector Name Role Phone Ebony Sharp MD PCP Reason for Referral * Surgical (Routine) Referred By Contact Referred To Contact Status Reason Specialty Diagnoses [place] [address] [place] [address] [place] [address] [place] [address] Closed Urology Diagnoses Left flank pain P rocedures External Uro Surgery * Diagnostic Imaging (Routine) Referred By Contact Referred To Contact Status Reason Specialty Diagnoses / [place] [address], [place] [address] Closed Diagnoses Left flank pain P rocedures Electrocardiogram (ECG) Reason for Visit * Reason Comments Nephrolithiasis new patient * Consultation (Routine) Referred By Contact Referred To Contact Status Reason Specialty Diagnoses / Procedures Ebony Sharp MD [address] [facility] [address] [place] [address] [address] [facility] [address] [place] [address] Closed Specialty Services Urology Diagnoses Required Left flank pain Encounter Details Care Team Description Date [place] [address] [place], [place] [address] [phone] Urethral diverticulum; Left flank pain; Renal calculus 06/21/2019 Office Visit [facility] [address] [place] [address] Social History Date Tobacco Use Types Packs/Day [...] in salt and meat content? (Eating a seyy-xczdzh-bedzyqt di et is a risk for uric [...] how to prevent them. Date Last Reviewed: 08/23/201619996648-[address] [employer] [place] [address] 7. All rights reserved. This information is [...] 08/08/2016 Allergic rhinitis Anxiety Bronchitis, chronic ([facility]) Cataract 2011, 2012 bilat cateract surgery Chronic pain disorder back, ribs, and ankle. COPD (chronic obstructive pulmonary disease) ([facility]) Depression Draining postoperative wound 08/08/2016 Endometriosis Essential hypertension Fractures [address] in Left ankle MATA (generalized anxiety disorder) 09/24/2015 Hernia of abdominal cavity Kidney stone Mixed hyperlipidemia 09/24/2015 Morbid obesity due to excess calories ([facility]) 07/10/2016 On home oxygen therapy 2L - usually needs if has an exerbation of COPD, or resp illness SASHA on CPAP Osteoarthritis Sleep apnea uses CPAP Type 2 diabetes mellitus with hyperglycemia, with long-term current use of i nsulin ([facility]) 06/29/2016 Urinary calculi Urinary tract infection Goldberg-Ekbom [...] ARTHRODESIS; Surgeon: Adelaida Olivas MD; Location[place] [facility] [place]; Service: Orthopedics; Later ality: Left; REPAIR, INCISIONAL HERNIA, LAPAROSCOPIC, USING MESH N/A 05/25/2018 Procedure: LAPAROSCOPIC INCISIONAL HERNIA REPAIR WITH MESH; Surgeon: Medardo Tate MD; Location: [facility] [place]; Service: General; [...] file Gets together: Not on file Attends sabianist service: Not on file Active member of [...] She und erwent a CT scan at [facility] that demonstrated proximal a 1.5 [...] Negative Negative Specific 1.025 1.001 - 1.030 [place], UA Hemoglobin Negative Negative Urine PH Urine [...]
--- OUTSIDE RECORDS SUMMARY | 2020-03-16 13:56 | XMS REPORT | Encounter Summary ---
Author Author [facility] Organization [facility] Address Unknown Phone Unavailable Care Team Providers Care File Conversion Operator Name Role Phone Ebony Sharp MD PCP Reason for Visit * Reason Comments Other Encounter Details Care Team Description Date Type Department Ebony Sharp MD [address] [facility] [address] [place], [place] [phone] Other 03/13/2019 Refill [facility] [address] [facility] [address] [place], [place] [phone] Social History Date Tobacco Use Types Packs/Day [...]
--- OUTSIDE RECORDS SUMMARY | 2020-03-16 13:56 | XMS REPORT | Encounter Summary ---
Author Author [facility] Organization [facility] Address Unknown Phone Unavailable Care Team Providers Care Food Services Director Name Role Phone Ebony Sharp MD PCP Encounter Details Care Team Description Date Type Department Walker Funez MD [address] [facility] [address] [place], [place] [address] 02/15/2019 Orders Only [facility] [address] [facility] [address] [place], [place] [address] Social History Date Tobacco Use Types Packs/Day [...]
--- OUTSIDE RECORDS SUMMARY | 2020-03-16 13:56 | XMS REPORT | Encounter Summary ---
Author Author [facility] Address Unknown Phone Unavailable Care Team Providers Care Cube Cutter Name Role Phone Ebony Sharp MD PCP Encounter Details Care Team Description Date Type Department Walker Funez MD [address] [facility] [address] [place] [address] 01/18/2019 Telephone [facility] [address] [facility] [address] [place], [place] [address] Social History Date Tobacco Use Types Packs/Day [...]
--- OUTSIDE RECORDS SUMMARY | 2020-03-16 13:56 | XMS REPORT | Encounter Summary ---
Author Author [facility] Organization [facility] Address Unknown Phone Unavailable Care Team Providers Care 2Nd Grade Teacher Name Role Phone Ebony Sharp MD PCP Reason for Referral * Diagnostic Imaging (Routine) Referred By Contact Referred To Contact Status Reason Specialty Diagnoses / Procedures Brooke Polanco MD [address] [facility] [address] [place] [address] Closed Diagnoses Essential hypertension P rocedures Electrocardiogram (ECG) Reason for Visit * Reason Comments Hypertension Encounter Details Care Team Description Date Type Department Brooke Polanco MD [address] [facility] [address] [place] [address] [phone] Essential hypertension (Primary Dx); Type 2 diabetes mellitus with hyperglycemia, 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); Mixed hyperlipidemia; Chronic obstructive pulmonary disease, unspecified COPD type (HCC) 01/13/2019 Office Visit [facility] [address] [facility] [address] [place], [place] [address] Social History Date Tobacco Use Types Packs/Day [...] your healthcare, please sign up for the [facility] Po rtal at [email or web address] -- you can email your doctors, check results, make ap pointments, pay your medical office bill, and request refills. Enter activation code on your visit summary given at end of your visit or by Clicking Sign Up Now tab and requesting activation code. Please call the Nurse Line at [phone] ([facility] Team). with any questions or concerns. For medication refill needs, please first contact your pharmacy. For any [facility] scheduling questions, please rosalind l . At [facility], high quality patient care is [...] Polanco MD - 01/13/2019 12:25 PM CDT [facility] [place] Appointment Date: 01/13/2019 Ebony Sharp MD [address] [facility] 200 [facility] [place] [address] RE: Isiah Benítez : 1950 Visit provider: [...] [facility] Cataract 2011, 2012 bilat cataract surgery Chronic [...] [facility]) 06/29/2016 Urinary calculi Urinary tract [...] ANKLE ARTHRODESIS; Surgeon: Adelaida Olivas MD; [place] [facility] [place]; Service: Orthopedics; Later ality: Left; REPAIR, INCISIONAL HERNIA, LAPAROSCOPIC, USING MESH N/A 05/25/2018 Procedure: LAPAROSCOPIC INCISIONAL HERNIA REPAIR WITH MESH; Surgeon: Medardo Tate MD; [place] [facility] [place]; Service: General; Laterality: N/A; TONSILLECTOMY [...] of i nsulin ([facility]) Mixed hyperlipidemia Chronic obstructive pulmonary disease, unspecified COPD type ([facility]) Impression and Plan: 1. Preoperative cardiovascular evaluation. [...] 156 TRACEMASTER Specimen Narrative Performed At [facility] [place] Test Date: 2019-01-13 Pat Name: ISIAH JACKELIN Department: [facility] Room: Gender: Female Tube Rebuilder: BRISEYDA : 1950 Requested By: BROOKE POLANCO Order Number: [id number] Reading MD: Brooke Polanco Measurements Intervals Dwarf Rate: 80 P: 57 WY: 156 QRS: 55 QRSD: 102 T: 69 QT: 380 QTc: 439 Interpretive Statements SINUS RHYTHM Electronically Signed On 01-13-2019 17:0 0:24 CDT by Brooke Polanco Procedure Note Interface, External Ris In - 01/13/2019 5:[address] [facility] [place] Test Date: 2019-01-13 Pat Name: ISIAH BENÍTEZ Department: [facility] Room: Gender: Female Tube Rebuilder: BRISEYDA : 1950 Requested By: BROOKE POLANCO Order Number: [id number] Reading MD: Brooke Polanco Measurements Intervals Dwarf Rate: 80 P: 57 WY: 156 QRS: 55 QRSD: 102 T: 69 [...]
--- OUTSIDE RECORDS SUMMARY | 2020-03-16 13:56 | XMS REPORT | Encounter Summary ---
Author Author [facility] Organization [facility] Address Unknown Phone Unavailable Care Team Providers Care High [employer] Auto Repair Teacher Name Role Phone Ebony Sharp MD PCP Reason for Visit * Reason Comments Medication Refill Encounter Details Care Team Description Date Type Department Walker Funez MD [address] [facility] [address] [place], [place] [phone] Medication Refill 03/08/2019 Refill [facility] [address] [facility] [address] [place], [place] [phone] Social History Date Tobacco Use Types Packs/Day [...]
--- OUTSIDE RECORDS SUMMARY | 2020-03-16 13:56 | XMS REPORT | Encounter Summary ---
Author Author [facility] Organization [facility] Address Unknown Phone Unavailable Care Team Providers Care Enrollment Advisor Name Role Phone Ebony Sharp MD PCP Encounter Details Care Team Description Date Type Department Walker Funez MD [address] [facility] [address] [place], [place] [phone] Bilateral hand pain 01/13/2019 Orders Only [facility] [address] [facility] [address] [place], [place] [phone] Social History Date Tobacco Use Types Packs/Day [...]
--- OUTSIDE RECORDS SUMMARY | 2020-03-16 13:56 | XMS REPORT | Encounter Summary ---
Author Author [facility] Organization Address Unknown Phone Unavailable Care Team Providers Care Comprehensive Ophthalmologist Name Role Phone Ebony Sharp MD PCP Reason for Referral * Consultation (Routine) Referred By Contact Referred To Contact Status Reason Specialty Diagnoses / Procedures Ebony Sharp MD [address] [facility] [address] [place] [address] [facility] [address] [facility] [address] [place] [address] Closed Specialty Services Pulmonary Diagnoses Required Disease / Pre-operative Pulmonology clearance * Consultation (Routine) Referred By Contact Referred To Contact Status Reason Specialty Diagnoses / Procedures Ebony Sharp MD [address] [facility] [address] [place] [address] [address] [facility] [address] [place] [address] Closed Specialty Services Endocrinology Diagnoses Required Hemoglobin A1c greater than 9.0% Encounter Details Care Team Description Date Type Department Jennifer Feng RN 01/17/2019 Telephone [facility] [address] [facility] [address] [place] [phone] Social History Date Tobacco Use Types Packs/Day [...]
--- OUTSIDE RECORDS SUMMARY | 2020-03-16 13:56 | XMS REPORT | Encounter Summary ---
Author Author [facility] Organization [facility] Address Unknown Phone Unavailable Care Team Providers Care Figurine Maker Name Role Phone Ebony Sharp MD PCP Reason for Visit * Reason Comments Other Encounter Details Care Team Description Date Type Department Ebony Sharp MD [address] [facility] [address] [place], [place] [phone] Other 02/18/2019 Refill [facility] [address] [facility] [address] [place], [place] [phone] Social History Date Tobacco Use Types Packs/Day [...] Infection Onset Date 08/30/2019 08/30/2019 1:09 PM 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
--- OUTSIDE RECORDS SUMMARY | 2020-03-16 13:56 | XMS REPORT | Encounter Summary ---
Author Author [facility] Organization [facility] Address Unknown Phone Unavailable Care Team Providers Care Pipe Line Gauger Name Role Phone Ebony Sharp MD PCP Reason for Referral * Surgical (Routine) Referred By Contact Referred To Contact Status Reason Specialty Diagnoses / Procedures Walker Funez MD [address] [facility] [address] [place] [address] [facility] [address] [place] [address] Closed Diagnoses Carpal tunnel syndrome, bilateral P rocedures Referral to Outside Surgery VA WRIST ARTHROSCOP,RELEASE XVERS LIG Reason for Visit * Reason Comments Follow-up Follow-up Encounter Details Care Team Description Date Type Department Walker Funez MD [address] [facility] [address] [place], [place] [id number] Bilateral hand pain (Primary Dx); Carpal tunnel syndrome, bilateral 02/17/2019 Office Visit [facility] [address] [facility] [address] [place] [address] Social History Date Tobacco Use [...] Funez MD - 02/17/2019 1:15 PM CDT [facility] [address] [facility] [address] [facility] [address] Caren Patten female 1950 Chief Complaint Chief Complaint Patient presents with Left Hand - Follow-up Right Hand - Follow-up HPI Ms. Patten is a pleasant 68 y.o. 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 No real treatment other than [...] FOR RESTORATIVE CARE) 06/29/2016 Urinary calculi Urinary tract infection [...]
--- OUTSIDE RECORDS SUMMARY | 2020-03-16 13:56 | XMS REPORT | Encounter Summary ---
Author Author [facility] Organization [facility] Address Unknown Phone Unavailable Care Team Providers Care Mission Assessment Specialist Name Role Phone Ebony Sharp MD PCP Encounter Details Care Team Description Date Type Department GiovanniMacy 02/15/2019 Education [facility] [address] [place] [address] Social History Date Tobacco Use Types Packs/Day [...] everyday. Pt reports she plans on joining [employer] with her son in law and [...]
--- OUTSIDE RECORDS SUMMARY | 2020-03-16 13:56 | XMS REPORT | Encounter Summary ---
Author Author [facility] Organization [facility] Address Unknown Phone Unavailable Care Team Providers Care Kitchen Clerk Name Role Phone Ebony Sharp MD PCP Reason for Visit * Reason Comments Medication Refill Encounter Details Care Team Description Date Type Department Ebony Sharp MD [address] [facility] [address] [place] [address] [phone] Medication Refill 03/10/2019 Refill [facility] Prim[facility] Care - East [address] [facility] [address] [place], [place] [address] Social History Date Tobacco Use Types Packs/Day [...]
--- OUTSIDE RECORDS SUMMARY | 2020-03-16 13:56 | XMS REPORT | Encounter Summary ---
Author Author [facility] Organization [facility] Address Unknown Phone Unavailable Care Team Providers Care Manager Continuous Improvement Name Role Phone Ebony Sharp MD PCP Encounter Details Care Team Description Date Type Department Walker Funez MD [address] [facility] [address] [place], [place] [id number] 03/13/2019 Refill [facility] [address] [facility] [address] [place], [place] [address] Social History Date Tobacco Use Types Packs/Day [...]
--- OUTSIDE RECORDS SUMMARY | 2020-03-16 13:56 | XMS REPORT | Encounter Summary ---
Author Author [facility] Organization [facility] Address Unknown Phone Unavailable Care Team Providers Care Field Specialist Name Role Phone Ebony Sharp MD PCP Encounter Details Care Team Description Date Type Department Walker Funez MD [address] [facility] [address] [place], [place] [address] 01/13/2019 Imaging [facility] [address] [facility] [address] [place], [place] [address] Social History Date Tobacco Use Types Packs/Day [...]
--- OUTSIDE RECORDS SUMMARY | 2020-03-16 13:56 | XMS REPORT | Encounter Summary ---
Author Author [facility] Organization [facility] Address Unknown Phone Unavailable Care Team Providers Care Tobacco Sieve Operator Name Role Phone Ebony Sharp MD PCP Encounter Details Care Team Description Date Type Department Walker Funez MD [address] [facility] [address] [place], [place] [id number] 01/13/2019 Telephone [facility] [address] [facility] [address] [place], [place] [address] Social History Date Tobacco Use Types Packs/Day [...] BENEFITS: Dwight spoke to Denis with call Ref#[id number]; No prior authori zation is required for CPT code L3908. No Deductible Co-Ins 80-20% OOP Max $5900 Has met $490.00 documented in this encounter Plan of Treatment Not on filedocumented as of this encounter Visit Diagnoses Not on filedocumented in this encounter
--- OUTSIDE RECORDS SUMMARY | 2020-03-16 13:56 | XMS REPORT | Encounter Summary ---
Author Author [facility] Organization [facility] Address Unknown Phone Unavailable Care Team Providers Care Pivot Maker Name Role Phone Ebony Sharp MD PCP Encounter Details Care Team Description Date Type Department Ebony Sharp MD [address] [facility] [address] [place], [place] [id number] Benign essential HTN; Sweating increase; Hyperthyroidism; Dysuria; Type 2 diabetes mellitus with hyperosmolarity without coma, without long-term current use of insulin (HCC) 01/13/2019 Lab [facility] [phone] Social History Date Tobacco Use Types Packs/Day [...] Address City/State/Zipcode Ph one Number [place] [address] [address] LABORATORIES * T4 Free (01/13/2019 12:55 PM CDT) T4 Free 1.0 0.8 - 2.2 ng/dL [facility] Specimen Blood Performing Organization Address City/State/Zipcode Ph one Number [place] [facility] [address] [facility] [place] [address] [facility] [address] [place] [facility] [place] [address], [facility] * Urinalysis Reflex (01/13/2019 12:55 PM CDT) Appearance, Yellow [facility] Glucose Urine >=1000 (A) Negative mg/dL [facility] Bilirubin Urine Small (A) Negative [facility] Ketones Urine Negative Negative mg/dL [facility] Specific 1.023 1.001 - 1.030 [facility] [place], UA [facility] Hemoglobin [...] [address] [place], [place] [id number] [facility] [address] [place] [address], [place] [phone] [facility] * Thyroid Stimulating Hormone (01/13/2019 [...] [place] [address], [place] [phone] [facility] * Comprehensive Metabolic Panel (01/13/2019 12:55 PM CDT) [facility] Sodium 136 133 - 147 MEQ/L [facility] Potassium 5.4 (H) 3.5 - 5.3 MEQ/L [facility] Chloride 96 96 - 112 MEQ/L [facility] Carbon Dioxide 25 20 - 32 MEQ/L [facility] Anion Gap 15 5 - 17 [facility] Calcium 10.6 (H) 8.4 - 10.5 mg/dL [facility] Glucose 296 (H) 70 - 100 mg/dL [facility] Protein Total 8.3 (H) 6.0 - 8.2 g/dL [facility] Serum [facility] Albumin 4.7 3.5 - 5.0 g/dL [facility] Alkaline 91 42 - 140 IU/L [facility] Phosphatase [facility] Alanine 31 0 - 34 IU/L [facility] Aminotransferas [facility] Aspartate 31 15 - 46 IU/L [facility] Aminotransferas [facility] Bilirubin Total 0.4 0.2 - 1.3 mg/dL [facility] Blood Urea 24 7 - 26 mg/dL [facility] Nitrogen [facility] Creatinine 1.1 0.4 - 1.1 mg/dL [facility] eGFR Female AA 60 60 - 200 [facility] mL/min/1.73sq m [facility] eGFR Female 50 (L) 60 - 200 [facility] Non-AA mL/min/1.73sq m [facility] Specimen Blood Performing Organization Address City/State/Zipcode Ph one Number [facility] [address] [facility]'s [place] [address] [facility] [address] [place] [address], [facility] * CBC and Diff (manual diff if necessary) (01/13/2019 12:55 PM CDT) [facility] Signature WBC 12.21 (H) 4.00 - 11.00 TH/uL [facility] RBC 4.76 4.00 - 5.00 MIL/uL [facility] Hemoglobin 16.3 (H) 12.0 - 15.0 g/dL [facility] Hematocrit 47 (H) 36 - 45 % [facility] MCV 99 80 - 99 fL [facility] MCH 34 27 - 34 pg [facility] MCHC 35 32 - 36 % [facility] RDW 13.2 11.5 - 14.5 % [facility] Platelet Count 246 140 - 400 TH/uL [facility] MPV 9.9 9.4 - 12.3 fL [facility] Nucleated RBCs 0 0 - 0 /100 [facility] % Neutrophils 65 45 - 78 % [facility] %Lymphocytes 25 15 - 47 % [facility] %Monocytes 8 0 - 12 % [facility] %Eosinophils 2 0 - 7 % [facility] %Basophils 1 0 - 2 % [facility] # Granulocytes 7.91 (H) 1.7 - 6.8 TH/uL [facility] # Lymphocytes 3.02 1.0 - 3.3 TH/uL [facility] # Monocytes 0.91 (H) 0.2 - 0.9 TH/uL [facility] [place] [facility] # Eosinophils 0.23 0.0 - 0.4 TH/uL [facility] [place] [facility] # Basophils 0.08 0.0 - 0.1 TH/uL [facility] Specimen Blood Performing Organization Address City/State/Zipcode Ph one Number [place] [facility] [address] [facility] [address] [facility] [place] [address] [facility] [place] [address], [facility] documented in this encounter Visit Diagnoses Diagnosis Benign essential HTN Sweating increase Generalized hyperhidrosis Hyperthyroidism Thyrotoxicosis without mention of goite r or other cause, without mention of thyrotoxic crisis or storm Dysuria Type 2 diabetes mellitus with hyperosmo larity without coma, without long-term current use of insulin (HCC) documented in this encounter
--- OUTSIDE RECORDS SUMMARY | 2020-03-16 13:56 | XMS REPORT | Encounter Summary ---
Author Author [facility] Organization [facility] Address Unknown Phone Unavailable Care Team Providers Care Duck Operator Name Role Phone Ebony Sharp MD PCP Encounter Details Care Team Description Date Type Department [facility] Provider[facility] Clement[facility] 03/09/2019 External [facility] Bgiftyu e Documentation Location Social History Date Tobacco [...] ProviderSaint ClementAlysiaeugenia - 03/09/2019 12:00 AM CDT [facility] [address] [place] [address] OPERATIVE NOTE PATIENT: ISIAH BENÍTEZ PHYSICIAN: Luis [...] M.D. Electronically Signed - 03/16/2019 09:07 AM SHIRAZ/pema/[id number] DT: 03/09/2019 documented in this encounter Plan of Treatment Not on filedocumented as of this encounter Visit Diagnoses Not on filedocumented in this encounter Additional Health Concerns Last Indicated Resolved Time Infection Onset Date 08/30/2019 08/30/2019 1:09 PM SOLAR SALES ADVISOR Influenza - Rule Out 08/30/2019 08/31/2019 09/17/2019 8:17 AM SOLAR SALES ADVISOR RSV 08/31/2019 documented as of this encounter
--- OUTSIDE RECORDS SUMMARY | 2020-03-16 13:56 | XMS REPORT | Encounter Summary ---
Author Author [facility] Organization [facility] Address Unknown Phone Unavailable Care Team Providers Care Refueler Name Role Phone Ebony Sharp MD PCP Reason for Visit * Reason Comments Other Encounter Details Care Team Description Date Type Department Walker Funez MD [address] [facility] [address] [place] [address] [phone] Other 01/18/2019 Refill [place] [address] [facility] [address] [place], [place] [id number] Social History Date Tobacco Use Types Packs/Day [...]
--- OUTSIDE RECORDS SUMMARY | 2020-03-16 13:56 | XMS REPORT | Encounter Summary ---
Author Author [facility] Organization [facility] Address Unknown Phone Unavailable Care Team Providers Care Bank Analyst Name Role Phone Ebony Sharp MD PCP Reason for Visit * Reason Comments Medication Refill Encounter Details Care Team Description Date Type Department Walker Funez MD [address] [facility] [address] [place], [place] [id number] Medication Refill 02/15/2019 Refill [facility] [address] [facility] [address] [place], [place] [address] Social History Date Tobacco Use Types Packs/Day [...]
--- OUTSIDE RECORDS SUMMARY | 2020-03-16 13:56 | XMS REPORT | Encounter Summary ---
Author Author [facility] Organization [facility] Address Unknown Phone Unavailable Care Team Providers Care Repairer Shoe Sticks Name Role Phone Ebony Sharp MD PCP Reason for Visit * EMG (Routine) Referred By Contact Referred To Contact Status Reason Specialty Diagnoses / Procedures Walker Funez MD [address] [facility] [address] [place] [address] Max Valentin MD [address] [facility] [address] [place] [address] Closed Physical Diagnoses Medicine and Bilateral hand Rehabilitation numbness P rocedures EMG Encounter Details Care Team Description Date Type Department Max Valentin MD [address] [facility] [address] [place] [address] [phone] Carpal tunnel syndrome, bilateral (Prima ry Dx); Bilateral hand pain; Type 2 diabetes mellitus with hyperglycemia, with long-term current use of insulin ([facility]) 02/13/2019 Office Visit [facility] [address] [facility] [address] [place] [address] Social History Date Tobacco Use Types Packs/Day [...]
--- OUTSIDE RECORDS SUMMARY | 2020-03-16 13:56 | XMS REPORT | Encounter Summary ---
Author Author [facility] Organization [facility] Address Unknown Phone Unavailable Care Team Providers Care Bank Courier Name Role Phone Ebony Sharp MD PCP Encounter Details Care Team Description Date Type Department Max Valentin MD [address] [facility] [address] [place], [place] [id number] 02/13/2019 Documentation [facility] [address] [facility] [address] [place], [place] [address] Social History Date Tobacco Use Types Packs/Day [...]
--- OUTSIDE RECORDS SUMMARY | 2020-03-16 13:56 | XMS REPORT | Encounter Summary ---
Author Author [facility] Organization [facility] Address Unknown Phone Unavailable Care Team Providers Care Senior Sql Server Dba Name Role Phone Ebony Sharp MD PCP Reason for Referral * EMG (Routine) Referred By Contact Referred To Contact Status Reason Specialty Diagnoses / Procedures Walker Funez MD [address] [facility] [address] [place] [address] Max Valentin MD [address] [facility] [address] [place] [address] Closed Physical Diagnoses Medicine and Bilateral hand Rehabilitation numbness P rocedures EMG Reason for Visit * Reason Comments Pain Encounter Details Care Team Description Date Type Department Walker Funez MD [address] [facility] [address] [place] [address] [phone] Right wrist pain (Primary Dx); Bilateral hand numbness 01/13/2019 Initial consult [facility] [address] [facility] [address] [place], [place] [address] Social History Date Tobacco Use Types Packs/Day [...] Funez MD - 01/13/2019 2:30 PM CDT [facility] [address] [facility] [address] [facility] [address] Caren Patten female 1950 Chief Complaint Chief Complaint Patient presents with Right Wrist - Pain HPI Ms. Patten is a pleasant 68 y.o. -year-old female, right-handed, who [facility] pain. This has been [...] she has been dropping items because her supervisor plasma is weak. No real treatment other than [...] Allergic rhinitis Anxiety Bronchitis, chronic ([facility]) Cataract 2011, 2012 bilat cateract surgery Chronic pain disorder back, ribs, and ankle. COPD (chronic obstructive pulmonary disease) ([facility]) Depression Draining postoperative wound 08/08/2016 Endometriosis Essential hypertension Fractures [address] in Left ankle MATA (generalized anxiety disorder) 09/24/2015 Hernia of abdominal cavity Mixed hyperlipidemia 09/24/2015 Morbid obesity due to excess calories ([facility]) 07/10/2016 On home oxygen therapy 2L - usually needs if has an exerbation of COPD, or resp illness SASHA on CPAP Osteoarthritis Sleep apnea uses CPAP Type 2 diabetes mellitus with hyperglycemia, with long-term current use of i nsulin ([facility]) 06/29/2016 Urinary calculi Urinary tract infection Goldberg-Ekbom [...] ANKLE ARTHRODESIS; Surgeon: Adelaida Olivas MD; Location: [facility] Main OR; Service: Orthopedics; Later ality: Left; REPAIR, INCISIONAL HERNIA, LAPAROSCOPIC, USING MESH N/A 05/25/2018 Procedure: LAPAROSCOPIC INCISIONAL HERNIA REPAIR WITH MESH; Surgeon: Medardo Tate MD; Location: [facility] Main OR; Service: General; Laterality: N/A; TONSILLECTOMY [...] NIGHT. E11.9 10 mL 5 insulin syringe (EntraTympanic ULTRA-FINE) 0.3 mL 31 gauge x 5/16 [...]
--- OUTSIDE RECORDS SUMMARY | 2020-03-16 13:57 | XMS REPORT | Encounter Summary ---
Author Author [facility] Organization [facility] Address Unknown Phone Unavailable Care Team Providers Care Computer Networker Name Role Phone Ebony Sharp MD PCP Reason for Visit * Reason Comments Other Encounter Details Care Team Description Date Type Department Ebony Sharp MD [address] [facility] [address] [place], [place] [id number] Other 10/20/2018 Refill [facility] Prim[facility] y Care - East [address] [facility] [address] [place], [place] [id number] Social History Date Tobacco Use Types Packs/Day [...]
--- OUTSIDE RECORDS SUMMARY | 2020-03-16 13:57 | XMS REPORT | Encounter Summary ---
Author Author [facility] Organization [facility] Address Unknown Phone Unavailable Care Team Providers Care Low Pressure Kettle Operator Name Role Phone Ebony Sharp MD PCP Reason for Referral * Consultation (Routine) Referred By Contact Referred To Contact Status Reason Specialty Diagnoses / Procedures Medardo Tate MD [address] [address] [facility] [address] [place] [address] Closed Specialty Services Pulmonary Diagnoses Required Disease Sleep apnea, unspecified type Preoperative clearance Encounter Details Care Team Description Date Type Department Medardo Tate MD [address] [place] [address] [phone] Sleep apnea, unspecified type (Primary D x); Preoperative clearance 12/30/2018 Orders Only [facility] [address] [place] [phone] Social History Date Tobacco Use Types Packs/Day [...]
--- OUTSIDE RECORDS SUMMARY | 2020-03-16 13:57 | XMS REPORT | Encounter Summary ---
Author Author [facility] Organization [facility] Address Unknown Phone Unavailable Care Team Providers Care Sprayer Leather Name Role Phone Ebony Sharp MD PCP Reason for Visit * Reason Comments Other Encounter Details Care Team Description Date Type Department Ebony Sharp MD [address] [facility] [address] [place], [place] [address] Other 10/23/2018 Refill [facility] Primar y Care - East [address] [facility] [address] [place], [place] [address] Social History Date Tobacco Use Types Packs/Day [...]
--- OUTSIDE RECORDS SUMMARY | 2020-03-16 13:57 | XMS REPORT | Encounter Summary ---
Author Author [facility] Organization [facility] Address Unknown Phone Unavailable Care Team Providers Care Counsel Name Role Phone Ebony Sharp MD PCP Encounter Details Care Team Description Date Type Department Macy Davila 12/27/2018 Education [facility] [address] [facility] [address] [place], [place] [address] Social History Date Tobacco Use Types Packs/Day [...] body equipment at home for RT. * Francosie Coelho RD - 12/27/2018 8:30 AM CDT [...]
--- OUTSIDE RECORDS SUMMARY | 2020-03-16 13:57 | XMS REPORT | Encounter Summary ---
Author Author [facility] Organization [facility] Address Unknown Phone Unavailable Care Team Providers Care Teacher Name Role Phone Ebony Sharp MD PCP Reason for Visit * Reason Comments Chest pain Patient presents via [facility] wi th c/o CP since approx 06. Pt states its left sided and radiates to back. Pt has IV a ccess and was administered 50 mcg fent, 0.4 nitro sl. Encounter Details Care Team Description Date Type Department Chava Kelly MD [address] [facility] Emergency Dept [place], [place] [id number] Acute chest pain (Primary Dx) 09/13/2018 Emergency [facility] [address] [place], [place] [id number] Social History Date Tobacco Use Types Packs/Day [...] Comments Vital Sign 138/85 09/13/2018 2:01 PM MATERIALS MANAGEMENT SUPERVISOR Blood Pressure 76 09/13/2018 2:54 PM MATERIALS MANAGEMENT SUPERVISOR Pulse 36.7 C (98.1 F) 09/13/2018 9:59 AM MATERIALS MANAGEMENT SUPERVISOR Temperature 16 09/13/2018 2:54 PM MATERIALS MANAGEMENT SUPERVISOR Respiratory Rate 91% 09/13/2018 2:54 PM MATERIALS MANAGEMENT SUPERVISOR 91% RA, PATIENT HAS PRN 02 AT HOME PLACVE ON O2 WHEELCHAIIR FOR LOBBY TO WAIT DR KELLY AND CHARGE INFORMED. PATIENT NON DISTRESS NO SOA COMPLAINTS Oxygen Saturation - - Inhaled Oxygen Concentration 106.1 kg (234 lb) 09/13/2018 9:59 AM MATERIALS MANAGEMENT SUPERVISOR Weight 152.4 cm (5') 09/13/2018 9:59 AM MATERIALS MANAGEMENT SUPERVISOR Height 45.7 09/13/2018 9:59 AM MATERIALS MANAGEMENT SUPERVISOR Body Mass Index documented in this encounter Discharge Instructions * Attachments The following attachments cannot be sent through Care Everywhere.* CHEST PAIN, NONCARDIAC (TAJIK) documented in this encounter Medications at Time [...] Kayley Samayoa RN - 09/13/2018 2:24 PM MATERIALS MANAGEMENT SUPERVISOR Patient calling family for a ride. Came in by ems RIALS MANAGEMENT SUPERVISOR * Chava Kelly MD - 09/13/2018 10:25 AM MATERIALS MANAGEMENT SUPERVISOR 09/13/2018 [facility] History Chief Complaint Patient presents with Chest [...] ANKLE ARTHRODESIS; Surgeon: Adelaida Olivas MD; Location: [facility] Main OR; Service: Orthopedics; Later ality: Left; REPAIR, INCISIONAL HERNIA, LAPAROSCOPIC, USING MESH N/A 05/25/2018 Procedure: LAPAROSCOPIC INCISIONAL HERNIA REPAIR WITH MESH; Surgeon: Medardo Tate MD; Location: [facility] Main OR; Service: General; Laterality: N/A; TONSILLECTOMY [...] or atelectasis. No focal consolidation. READING SITE: [facility] Ebony Sharp MD [address] [facility] [address] [facility] [address] ED Clinical Impression 1. Acute chest pain Patient ED Dispo ED Disposition Discharge Chava Kelly MD 09/13/18 1656 RIALS MANAGEMENT SUPERVISOR documented in this encounter Plan of Treatment Not on filedocumented as of this encounter Procedures Comments Procedure Name Priority Date/Time Associated Diag nosis CT ANGIO CHEST STAT 09/13/2018 1:19 PM MATERIALS MANAGEMENT SUPERVISOR TROPONIN STAT 09/13/2018 1:16 PM MATERIALS MANAGEMENT SUPERVISOR TROPONIN STAT 09/13/2018 10:45 AM MATERIALS MANAGEMENT SUPERVISOR LIPASE STAT 09/13/2018 10:45 AM MATERIALS MANAGEMENT SUPERVISOR COMPREHENSIVE METABOLIC STAT 09/13/2018 PANEL 10:45 AM MATERIALS MANAGEMENT SUPERVISOR CBC AND DIFF (MANUAL DIFF STAT 09/13/2018 IF NECESSARY) 10:45 AM MATERIALS MANAGEMENT SUPERVISOR XR CHEST SINGLE VIEW STAT 09/13/2018 FRONTAL 10:35 AM MATERIALS MANAGEMENT SUPERVISOR ECG STAT 09/13/2018 10:09 AM MATERIALS MANAGEMENT SUPERVISOR documented in this encounter Results * CT Angio Chest (09/13/2018 1:19 PM MATERIALS MANAGEMENT SUPERVISOR) Specimen Impressions Performed At No acute findings. No pulmonary embolus. No rib abnor mality seen. LEVI Narrative Performed At Patient: ISIAH BENÍTEZ Sex#: F # [id number] Jose#: [id number] Location: [facility] Procedure Requested: [id number] CT ANGIO CHEST Reason for Exam: severe left sided ri b pain Exam Ordered: 09/13/2018 11 15 Exam Date/Time: 09/13/2018 131 9 Begin exam date/time: 09/13/[address] ANGIO CHEST READING SITE: [facility] INDICATION: severe left sided rib pain. [...] Rad Results In - 09/13/2018 1:41 PM MATERIALS MANAGEMENT SUPERVISOR Patient: ISIAH BENÍTEZ Sex#: Paulina # [id number] Jose#: [id number] Location: [facility] SED-27 Procedure Requested: [id number] CT ANGIO CHEST Reason for Exam: severe left sided rib pain Exam Ordered: 09/13/2018 1115 Exam Date/Time: 09/13/2018 1319 Begin exam date/time: 09/13/[address] ANGIO CHEST READING SITE: [facility] INDICATION: severe left sided rib pain. [...] No rib abnormality seen. Performing Organization Address [facility] one Number LEVI * Troponin (09/13/2018 1:16 PM MATERIALS MANAGEMENT SUPERVISOR) Only the most recent of 2 results within the time period is included. Pathologist [facility] Troponin <0.01 0.00 - 0.03 ng/mL [facility] Comment: [facility] Troponin Value [facility] Interpretation 0.00 - 0.03 Healthy 0.04 - 0.12 Increased Cardiac Risk >0.12 Myocardial Infarction Troponin may not become elevated until 6 to 8 hours after onset of symptoms. Specimen Blood Performing Organization Address [facility] one Number [facility] [address] [place] [address] [facility] [address] [place] [address], [place] [phone] [facility] * Lipase (09/13/2018 10:45 AM MATERIALS MANAGEMENT SUPERVISOR) Pathologist [facility] Lipase 50 23 - 300 IU/L [facility] Specimen Blood Performing Organization Address [facility] one Number [facility] [address] [place] [address] [facility] [address] [place] [address], [place] [phone] [facility] * Comprehensive Metabolic Panel (09/13/2018 10:45 AM MATERIALS MANAGEMENT SUPERVISOR) Pathologist [facility] Sodium 138 133 - 147 MEQ/L [facility] Potassium 4.2 3.5 - 5.3 MEQ/L [facility] Chloride 101 96 - 112 MEQ/L [facility] Carbon Dioxide 28 20 - 32 MEQ/L [facility] Anion Gap 9 5 - 17 [facility] Calcium 9.0 8.4 - 10.5 mg/dL [facility] Glucose 282 (H) 70 - 100 mg/dL [facility] Protein Total 7.4 6.0 - 8.2 g/dL [facility] Serum [facility] Albumin 3.9 3.5 - 5.0 g/dL [facility] Alkaline 89 42 - 140 IU/L [facility] Phosphatase [facility] Alanine 45 (H)Comment: ALT reference 0 - 34 IU/L [facility] Aminotransferas range changed on 03-01-2018 [facility] e [facility] Aspartate 46 15 - 46 IU/L [facility] Aminotransferas [facility] e [facility] Bilirubin Total 0.4 0.2 - 1.3 mg/dL [facility] Blood Urea 11 7 - 26 mg/dL [facility] Nitrogen [facility] Creatinine 0.6 0.4 - 1.1 mg/dL [facility] eGFR Female AA 120 60 - 200 [facility] Comment: [facility] Chronic Kidney Disease less [facility] than 60 mL/min/1.73 sq.m Kidney failure less than 15 mL/min/1.73 sq.m eGFR Female 100 60 - 200 [facility] Non-AA Comment: [facility] Chronic Kidney Disease less [facility] than 60 mL/min/1.73 sq.m Kidney failure less than 15 mL/min/1.73 sq.m Specimen Blood Performing Organization Address City/State/Zipcode Ph one Number [facility] [address] [place] [address] [facility] [address] [place] [address], [place] [phone] [facility] * CBC and Diff (manual diff if necessary) (09/13/2018 10:45 AM MATERIALS MANAGEMENT SUPERVISOR) WBC 8.11 4.00 - 11.00 TH/uL [facility] RBC 4.27 4.00 - 5.00 MIL/uL [facility] Hemoglobin 14.1 12.0 - 15.0 g/dL [facility] Hematocrit 41 36 - 45 % [facility] MCV 97 80 - 99 fL [facility] MCH 33 27 - 34 pg [facility] MCHC 34 32 - 36 % [facility] RDW 13.1 9.0 - 14.5 % [facility] Platelet Count 171 140 - 400 TH/uL [facility] MPV 10.2 9.4 - 12.3 fL [facility] % Neutrophils 66 45 - 78 % [facility] %Lymphocytes 23 15 - 47 % [facility] %Monocytes 7 0 - 12 % [facility] %Eosinophils 4 0 - 7 % [facility] %Basophils 1 0 - 2 % [facility] # Granulocytes 5.32 1.7 - 6.8 TH/uL [facility] # Lymphocytes 1.87 1.0 - 3.3 TH/uL [facility] # Monocytes 0.58 0.2 - 0.9 TH/uL [facility] # Eosinophils 0.29 0.0 - 0.4 TH/uL [facility] # Basophils 0.05 0.0 - 0.1 TH/uL [facility] Specimen Blood Performing Organization Address City/State/Zipcode Ph one Number [facility] [address] [facility] [place] [address] [facility] [address] [facility] [place] [address], [facility] * XR Chest single view frontal (09/13/2018 10:35 AM MATERIALS MANAGEMENT SUPERVISOR) Specimen Impressions Performed At Bandlike opacity in the left midlung zone possibly M CKESSON reflecting scarring or atelectasis. No focal consolidation. READING SITE: [facility] Narrative Performed At Patient: ISIAH BENÍTEZ Sex#: F # [id number] Jose#: [id number] Location: [facility] ED SED- Procedure Requested: [id number] XR CHEST SINGLE VIEW FRONTAL Reason for [...] Rad Results In - 09/13/2018 11:06 AM MATERIALS MANAGEMENT SUPERVISOR Patient: ISIAH BENÍTEZ Sex#: F # [id number] Jose#: [id number] Location: [facility] ED SED- Procedure Requested: [id number] XR CHEST SINGLE VIEW FRONTAL Reason for [...] or atelectasis. No focal consolidation. READING SITE: [facility] Performing Organization Address [facility] one Number LEVI * Electrocardiogram (ECG) (09/13/2018 10:09 AM MATERIALS MANAGEMENT SUPERVISOR) QRSd 104 TRACEMASTER QT 412 TRACEMASTER QTC 448 TRACEMASTER ECGHR 71 TRACEMASTER ECGPR 152 TRACEMASTER Specimen Narrative Performed At [facility] Date: 2018-09-13 Pat Name: ISIAH [facility] Department: ERS Room: SED Gender: Female Warehouse And Receiving Supervisor: [id number] : 1950 Requested By: CHAVA KELLY Order Number: [id number] Reading MD: Measurements Intervals Logan Rate: 71 P: 46 ME: 152 QRS: 49 QRSD: 104 T: 56 QT: 412 QTc: 448 Interpretive Statements SINUS RHYTHM Procedure Note Interface, External Ris In - 09/13/2018 4:34 PM MATERIALS MANAGEMENT SUPERVISOR [facility] ED Test Date: 2018-09-13 Pat Name: ISIAH BENÍTEZ Department: ERS Room: SED Gender: Female Warehouse And Receiving Supervisor: [id number] : 1950 Requested By: CHAVA KELLY Order Number: [id number] Reading MD: Measurements Intervals Logan Rate: 71 P: 46 ME: 152 QRS: 49 QRSD: 104 T: 56 QT: 412 QTc: 448 Interpretive Statements SINUS RHYTHM Performing Organization Address [facility] one Number TRACEMASTER documented in this encounter Visit Diagnoses Diagnosis Acute chest pain Unspecified chest pain documented in this encounter Administered Medications Action Date Dose Rate Site Medication Order MAR Action 09/13/2018 10:43 AM MATERIALS MANAGEMENT SUPERVISOR 50 mcg fentaNYL (SUBLIMAZE) injection 50 mcg Given 50 mcg, Intravenous, Once, e 09/13/18 at 1027, For 1 dose, Administer over 2 minutes; max dose for IVP is 2 mcg/kg. Note: Limit does not apply to patients who may be tolerant to opioid therapy o r on continuous IV or PO opiate therapy., 09/13/2018 1:17 PM MATERIALS MANAGEMENT SUPERVISOR 77 mL iohexol (OMNIPAQUE) 350 mg iodine/mL Given injection 77 mL 77 mL, Intravenous, Once in imaging, contrast, Starting Wed09/13/18 at 1316, For 1 dose 09/13/2018 11:23 AM MATERIALS MANAGEMENT SUPERVISOR 15 mg ketorolac (TORADOL) injection 15 mg Given 15 mg, Intravenous, Once, Wed09/13/18 a t 1114, For 1 dose 09/13/2018 1:26 PM MATERIALS MANAGEMENT SUPERVISOR 2 tablets oxyCODONE-acetaminophen (PERCOCET) 5-325 Given mg 2 tablet 2 tablet, Oral, Once, Wed09/13/18 at 1320, For 1 dose, Do not exceed 4 GM/DA Y of acetaminophen. If 65 or older do no t exceed 3 GM/DAY. If chronic alcoholic d o not exceed 2 GM/DAY., documented in this encounter"
--- OUTSIDE RECORDS SUMMARY | 2020-03-16 13:57 | XMS REPORT | Encounter Summary ---
Author Author [facility] Organization [facility] Address Unknown Phone Unavailable Care Team Providers Care Automation And Controls Manager Name Role Phone Ebony Sharp MD PCP Encounter Details Care Team Description Date Type Department Ebony Sharp MD [address] [facility] [address] [place], [place] [phone] 09/15/2018 Documentation [facility] Primar y [facility] [address] [facility] [address] [place] [address] Social History Date Tobacco Use [...]
--- OUTSIDE RECORDS SUMMARY | 2020-03-16 13:57 | XMS REPORT | Encounter Summary ---
Author Author [facility] Organization [facility] Address Unknown Phone Unavailable Care Team Providers Care Manager Protein Name Role Phone Ebony Sharp MD PCP Encounter Details Care Team Description Date Type Department Ebony Sharp MD [address] [facility] [address] [place], [place] [phone] 09/27/2018 Documentation [facility] Primar y [facility] [address] [facility] [address] [place], [place] [phone] Social History Date Tobacco Use Types Packs/Day [...]
--- OUTSIDE RECORDS SUMMARY | 2020-03-16 13:57 | XMS REPORT | Encounter Summary ---
Author Author [facility] Organization [facility] Address Unknown Phone Unavailable Care Team Providers Care Mail Order Sorter Name Role Phone Ebony Sharp MD PCP Reason for Visit * Reason Comments Other Encounter Details Care Team Description Date Type Department Ebony Sharp MD [address] [facility] [address] [place], [place] [id number] Other 11/15/2018 Refill [facility] Primar y Care - East [address] [facility] [address] [place], [place] [phone] Social History Date Tobacco Use Types Packs/Day [...] Infection Onset Date 08/30/2019 08/30/2019 1:09 PM MANAGER CONSUMER INSIGHTS Influenza - Rule Out 08/30/2019 08/31/2019 09/17/2019 8:17 AM MANAGER CONSUMER INSIGHTS RSV 08/31/2019 documented as of this encounter
--- OUTSIDE RECORDS SUMMARY | 2020-03-16 13:57 | XMS REPORT | Encounter Summary ---
Author Author [facility] Organization [facility] Address Unknown Phone Unavailable Care Team Providers Care Manufacturing Storeperson Name Role Phone Ebony Sharp MD PCP Encounter Details Care Team Description Date Type Department Francoise Coelho RD 11/01/2018 Education [facility] [address] [facility] [address] [place], [place] [phone] Social History Date Tobacco Use Types Packs/Day [...] - - Height 43.69 09/13/2018 9:59 AM TRAINING PROJECT MANAGER Body Mass Index documented in this [...]
--- OUTSIDE RECORDS SUMMARY | 2020-03-16 13:57 | XMS REPORT | Encounter Summary ---
Author Author [facility] Organization [facility] Address Unknown Phone Unavailable Care Team Providers Care In Home Baby Sitter Name Role Phone Ebony Sharp MD PCP Encounter Details Care Team Description Date Type Department Ebony Sharp MD [address] [facility] [address] [place], [place] [phone] 12/13/2018 Documentation [facility] Primar y [facility] [address] [facility] [address] [place], [place] [phone] Social History Date Tobacco Use Types Packs/Day [...]
--- OUTSIDE RECORDS SUMMARY | 2020-03-16 13:57 | XMS REPORT | Encounter Summary ---
Author Author [facility] Organization [facility] Address Unknown Phone Unavailable Care Team Providers Care Manufacturing Associate Name Role Phone Ebony Sharp MD PCP Reason for Visit * Reason Comments Other Encounter Details Care Team Description Date Type Department Ebony Sharp MD [address] [facility] [address] [place], [place] [phone] Other 10/21/2018 Refill [facility] Primar y Care - East [address] [facility] [address] [place], [place] [address] Social History Date Tobacco Use Types Packs/Day [...]
--- OUTSIDE RECORDS SUMMARY | 2020-03-16 13:57 | XMS REPORT | Encounter Summary ---
Author Author [facility] Organization [facility] Address Unknown Phone Unavailable Care Team Providers Care Quick Sketch Artist Name Role Phone Ebony Sharp MD PCP Encounter Details Care Team Description Date Type Department Medardo Tate MD [address] [facility] [address] [place] [address] [phone] 11/25/2018 Documentation [facility] [address] [facility] [address] [place], [place] [phone] Social History Date Tobacco Use Types Packs/Day [...]
--- OUTSIDE RECORDS SUMMARY | 2020-03-16 13:57 | XMS REPORT | Encounter Summary ---
Author Author [facility] Organization [facility] Address Unknown Phone Unavailable Care Team Providers Care Rn Camp Name Role Phone Ebony Sharp MD PCP Reason for Visit * Reason Comments Medication Refill Encounter Details Care Team Description Date Type Department Jennifer Feng RN Medication Refill 11/28/2018 Refill [facility] Primfl y [facility] [address] [facility] [address] [place], [place] [phone] Social History Date Tobacco Use Types Packs/Day [...]
--- OUTSIDE RECORDS SUMMARY | 2020-03-16 13:57 | XMS REPORT | Encounter Summary ---
Author Author [facility] Organization [facility] Address Unknown Phone Unavailable Care Team Providers Care Laborer Petroleum Refinery Name Role Phone Ebony Shapr MD PCP Reason for Visit * Reason Comments Medication Refill Encounter Details Care Team Description Date Type Department Jennifer Feng RN Medication Refill 10/21/2018 Refill [facility] Primwv y [facility] [address] [facility] [address] [place], [place] [phone] Social History Date Tobacco Use Types Packs/Day [...]
--- OUTSIDE RECORDS SUMMARY | 2020-03-16 13:57 | XMS REPORT | Encounter Summary ---
Author Author [facility] Organization [facility] Address Unknown Phone Unavailable Care Team Providers Care Case Briefer Name Role Phone Ebony Sharp MD PCP Reason for Visit * Reason Comments Other Encounter Details Care Team Description Date Type Department Ebony Sharp MD [address] [facility] [address] [place], [place] [phone] Other 10/18/2018 Refill [facility] Primar y Care - East [address] [facility] [address] [place], [place] [phone] Social History Date Tobacco Use Types Packs/Day [...] Infection Onset Date 08/30/2019 08/30/2019 1:09 PM SPACE STUDIES FACULTY MEMBER Influenza - Rule Out 08/30/2019 08/31/2019 09/17/2019 8:17 AM SPACE STUDIES FACULTY MEMBER RSV 08/31/2019 documented as of this encounter
--- OUTSIDE RECORDS SUMMARY | 2020-03-16 13:57 | XMS REPORT | Encounter Summary ---
Author Author [facility] Organization [facility] Address Unknown Phone Unavailable Care Team Providers Care Latex Ribbon Machine Operator Name Role Phone Ebony Sharp MD PCP Reason for Visit * Reason Comments Pre-visit chart prep Encounter Details Care Team Description Date Type Department Ryan Roth MD [address] [facility] [address] [place] [address] [phone] Pre-visit chart prep 12/27/2018 Documentation [facility] [address] [facility] [address] [place] [address] Social History Date Tobacco Use Types Packs/Day [...]
--- OUTSIDE RECORDS SUMMARY | 2020-03-16 13:57 | XMS REPORT | Encounter Summary ---
Author Author [facility] Organization [facility] Address Unknown Phone Unavailable Care Team Providers Care Decontaminator Name Role Phone Ebony Sharp MD PCP Reason for Visit * Reason Comments Follow-up hospital FU Encounter Details Care Team Description Date Type Department Ebony Sharp MD [address] [facility] [address] [place] [address] Benign essential HTN (Primary Dx); Hyperlipidemia, unspecified hyperlipidemia type; Type 2 diabetes mellitus with hyperosmolarity without coma, without long-term current use of insulin (HCC); Sweating increase; Vaginal itching; Hyperthyroidism; Dysuria 12/12/2018 Office Visit [facility] [address] [facility] [address] [place] [address] Social History Date Tobacco Use [...] Sharp MD as PCP - [facility] CECILIO Joaquin MA as Stem Roller Or Crusher Operator The patients demographics, including age, gender, [...] A1C 11.6 (H) 4.0 - 5.6 % [facility] Comment: REGIONAL Non-diabetic 4.0 - LABORATORIES 5.6 % Prediabetes 5.7 - 6.4 % Diabetes >= 6.5 % Specimen Blood Performing Organization Address [facility] one Number [facility] [address] [address] LABORATORIES * T4 Free (01/13/2019 12:55 PM CDT) Pathologist [facility] T4 Free 1.0 0.8 - 2.2 ng/dL [facility] Specimen Blood Performing Organization Address City/[facility] Ph one Number [facility] Abdi [facility] [address] [facility] [place] [address] [facility] [address] [facility] [place] [address], [facility] * Urinalysis Reflex (01/13/2019 12:55 PM CDT) Appearance, Yellow [facility] Glucose Urine >=1000 (A) Negative mg/dL [facility] Bilirubin Urine Small (A) Negative [facility] Ketones Urine Negative Negative mg/dL [facility] Specific 1.023 1.001 - 1.030 [facility] [place], UA [facility] Hemoglobin Negative Negative [facility] [...] [facility] [address] [facility] [place] [id number] [facility] [address] [place] [place] [address], [place] [phone] [facility] * Thyroid Stimulating Hormone (01/13/2019 12:55 PM CDT) Thyroid 0.07 (L) 0.47 - 4.68 uIU/mL [facility] [place] Stimulating AL[facility]ERT AZZUETA'S Hormone [facility] Specimen Blood Performing Organization Address City/[facility] Ph one Number [facility] AGUST[facility] [address] [facility] [place], [place] [phone] [facility] [address] [place] [facility] [place] [address], [place] [phone] [facility] * Comprehensive Metabolic Panel (01/13/2019 [...] Calcium 10.6 (H) 8.4 - 10.5 mg/dL [facility] Glucose 296 (H) 70 - 100 mg/dL [facility] AL[facility]ERT [facility] Protein Total 8.3 (H) 6.0 - 8.2 g/dL [facility] Serum ALBERT MARBINS [facility] Albumin 4.7 3.5 - 5.0 g/dL [facility] Alkaline 91 42 - 140 IU/L [facility] Phosphatase [facility] Alanine 31 0 - 34 IU/L [facility] Aminotransferas [facility] e [facility] Aspartate 31 15 - 46 IU/L [facility] Aminotransferas [facility] Bilirubin Total 0.4 0.2 - 1.3 mg/dL [facility] AL[facility]ERT [facility] Blood Urea 24 7 - 26 mg/dL [facility] Nitrogen [facility] Creatinine 1.1 0.4 - 1.1 mg/dL [facility] eGFR Female AA 60 60 - 200 [facility] mL/min/1.73sq m ALBERT MARBIN [facility] eGFR Female 50 (L) 60 - 200 [facility] Non-AA mL/min/1.73sq m AL[facility]ERT MAR[facility] Specimen Blood Performing Organization Address City/State/Zipcode Ph one Number [facility] [address] [place] [address] [facility] [address] [facility] [place] [address], [facility] * CBC and Diff (manual diff if necessary) (01/13/2019 12:55 PM CDT) WBC 12.21 (H) 4.00 - 11.00 TH/uL [facility] Eugenia ZAZUETAS [facility] RBC 4.76 4.00 - 5.00 MIL/uL [facility] ALBERT MARBIN [facility] Hemoglobin 16.3 (H) 12.0 - 15.0 g/dL [facility] AL[facility]ERT [facility] Hematocrit 47 (H) 36 - 45 % [facility] AL[facility] MCV 99 80 - 99 fL [facility] AL[facility]ERT [facility] MCH 34 27 - 34 pg [facility] AL[facility]ERT [facility] MCHC 35 32 - 36 % [facility] RDW 13.2 11.5 - 14.5 % [facility] Platelet Count 246 140 - 400 TH/uL [facility] AL[facility]ERT [facility] MPV 9.9 9.4 - 12.3 fL [facility] Nucleated RBCs 0 0 - 0 /100 [facility] % Neutrophils 65 45 - 78 % [facility] %Lymphocytes 25 15 - 47 % [facility] %Monocytes 8 0 - 12 % [facility] %Eosinophils 2 0 - 7 % [facility] %Basophils 1 0 - 2 % [facility] # Granulocytes 7.91 (H) 1.7 - 6.8 TH/uL [facility] AL[facility]ERT [facility] # Lymphocytes 3.02 1.0 - 3.3 TH/uL [facility] # Monocytes 0.91 (H) 0.2 - 0.9 TH/uL [facility] # Eosinophils 0.23 0.0 - 0.4 TH/uL [facility] # Basophils 0.08 0.0 - 0.1 TH/uL [facility] Specimen Blood Performing Organization Address City/State/Zipcode Ph one Number [facility] AL[facility] [address] [facility], [place] [address] [facility] [address] [facility] [place], [place] [address], [facility] documented in this encounter Visit Diagnoses Diagnosis Benign essential HTN Hyperlipidemia, unspecified hyperlipide prasanna type Type 2 diabetes mellitus with hyperosmo larity without coma, without long-term current use of insulin ([facility]) Sweating increase Generalized hyperhidrosis Vaginal itching Pruritus of genital organs Hyperthyroidism 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
--- OUTSIDE RECORDS SUMMARY | 2020-03-16 13:57 | XMS REPORT | Encounter Summary ---
Author Author [facility] Organization [facility] Address Unknown Phone Unavailable Care Team Providers Care Information Technology Specialist Name Role Phone Ebony Sharp MD PCP Encounter Details Care Team Description Date Type Department Francoise Coelho, CHRIS 11/29/2018 Education [facility] al Specialists [address] [facility] [address] [place], [place] [phone] Social History Date Tobacco Use Types Packs/Day [...] - - Height 43.02 09/13/2018 9:59 AM MAT ROLLER Body Mass Index documented in this encounter [...]
--- OUTSIDE RECORDS SUMMARY | 2020-03-16 13:57 | XMS REPORT | Encounter Summary ---
Author Author [facility] Organization [facility] Address Unknown Phone Unavailable Care Team Providers Care Airplane Inspector Name Role Phone Ebony Sharp MD PCP Encounter Details Care Team Description Date Type Department Katerina Hood RN 01/11/2019 Abstract [facility] [address] [place] [address] Social History Date Tobacco Use Types Packs/Day [...]
--- OUTSIDE RECORDS SUMMARY | 2020-03-16 13:58 | XMS REPORT | Encounter Summary ---
Author Author [facility] Organization [facility] Address Unknown Phone Unavailable Care Team Providers Care Computer Security Coordinator Name Role Phone Ebony Sharp MD PCP Reason for Visit * Reason Comments Other Encounter Details Care Team Description Date Type Department Ebony Sharp MD [address] [facility] [address] [place], [place] [phone] Other 06/20/2018 Refill [facility] Primar y Care - East [address] [facility] [address] [place], [place] [phone] Social History Date Tobacco Use Types Packs/Day [...]
--- OUTSIDE RECORDS SUMMARY | 2020-03-16 13:58 | XMS REPORT | Encounter Summary ---
Author Author [facility] Organization [facility] Address Unknown Phone Unavailable Care Team Providers Care Small Products Ii Assembler Name Role Phone Ebony Sharp MD PCP Encounter Details Care Team Description Date Type Department Zaida Faria, RN [address] [place] [address] 05/26/2018 Telephone [facility] Special[facility] [address] [place] [address] Social History Date Tobacco Use Types Packs/Day [...] pain medication is not working. Pt given Nerinx. documented in this encounter Plan of Treatment Not on filedocumented as of this encounter Visit Diagnoses Not on filedocumented in this encounter
--- OUTSIDE RECORDS SUMMARY | 2020-03-16 13:58 | XMS REPORT | Encounter Summary ---
Author Author [facility] Organization [facility] Address Unknown Phone Unavailable Care Team Providers Care Accountant Machine Processing Name Role Phone Ebony Sharp MD PCP Reason for Visit * Reason Comments Other Encounter Details Care Team Description Date Type Department Ebony Sharp MD [address] [facility] [address] [place], [place] [phone] Other 08/25/2018 Refill [facility] Primar y Care - East [address] [facility] [address] [place], [place] [phone] Social History Date Tobacco Use Types Packs/Day [...]
--- OUTSIDE RECORDS SUMMARY | 2020-03-16 13:58 | XMS REPORT | Encounter Summary ---
Author Author [facility] Organization [facility] Address Unknown Phone Unavailable Care Team Providers Care Casino Cashier Manager Name Role Phone Ebony Sharp MD PCP Reason for Visit * Reason Comments Rectal Bleeding PT REPORTS SHE HAD HERNIA S URGERY ON 05/25 AND TONIGHT WHEN GOING [place], WHEN SHE WIPED SHE NOTICED BR IGHT RED BLOOD. C/O PAIN TO SURGICAL SITE AND STOMACH CRAMPING Encounter Details Care Team Description Date Type Department Jacob Chew MD [address] [address] Left lower quadrant pain (Primary Dx) 06/15/2018 Emergency [facility] [address] [place], [place] [phone] Social History Date Tobacco Use Types Packs/Day [...] If you were prescribed strong pain medication ([place], Vicodin, Oxycodone, Percoc et, Hydrocodone, Tramadol) or [...] Care Everywhere.* ABDOMINAL PAIN, UNKNOWN CAUSE, (FEMALE) (AUSTRALIAN) * RECTAL BLEED, STABLE (AUSTRALIAN) documented in this encounter Medications at Time [...] 06/15/2018 6:16 AM CDT 06/15/2018 [facility] History Chief Complaint Patient presents with Rectal Bleeding PT REPORTS SHE HAD HERNIA SURGERY ON 05/25 AND TONIGHT [place] , WHEN SHE WIPED SHE NOTICED BRIGHT [...] Negative Ketones Urine Negative Negative mg/* Specific [place], UA >=1.030 1.001 - 1.030 Hemoglobin Urine [...] of recurrent urinary tract infection. READING SITE: [facility] The patient was re-examined and [...] [facility] Specimen Blood Performing Organization Address City/State/[facility] Ph one Number [facility] [address] [place] [phone] [facility] [address] [place] [address], [place] [phone] [facility] * Urinalysis Reflex (06/15/2018 7:15 AM CDT) Appearance, Yellow [facility] Urine [facility]ERT [facility] Glucose Urine 100 (A) Negative mg/dL [facility] - [facility] Bilirubin Urine Negative Negative [facility] Ketones Urine Negative Negative mg/dL [facility] - [facility] Specific >=1.030 1.001 - 1.030 [facility] [place], UA AL[facility]ERT - MAR[facility]'S [facility] LAB Hemoglobin [...] [place] [address], [place] [phone] [facility] * CT Abdomen Pelvis w [...] recurrent urinary tract infe ction. READING SITE: [facility] Narrative Performed At Patient: ISIAH BENÍTEZ Sex#: F # [id number] Jose#: [id number] Location: [facility]-12 Procedure Requested: [id number] CT ABDOM EN PELVIS W CONTRAST Reason [...] ISIAH BENÍTEZ Sex#: Paulina # [id number] Jose#: [id number] Location: [facility]12 Procedure Requested: [id number] CT ABDOMEN PELVIS W CONTRAST Reason for [...] of recurrent urinary tract infection. READING SITE: [facility] Performing Organization Address City/State/Zipcode Ph one Number L[place] * Comprehensive Metabolic Panel (06/15/2018 6:03 AM CDT) Sodium 137 133 - 147 MEQ/L [facility] Potassium 4.1 3.5 - 5.3 MEQ/L [facility] Chloride 99 96 - 112 MEQ/L [facility] Carbon Dioxide 30 20 - 32 MEQ/L [facility] Anion Gap 9 5 - 17 [facility] Calcium 9.3 8.4 - 10.5 mg/dL [facility] Glucose 282 (H) 70 - 100 mg/dL [facility] Protein Total 7.7 6.0 - 8.2 g/dL [facility] Serum [facility] Albumin 3.9 3.5 - 5.0 g/dL [facility] Alkaline 99 42 - 140 IU/L [facility] Phosphatase [facility] Alanine 28Comment: ALT reference range 0 - 34 IU/L [facility] Aminotransferas changed on 03-01-2018 [facility] e [facility] LAB Aspartate 30 15 - 46 IU/L [facility] Aminotransferas [facility] e [facility] Bilirubin Total 0.2 0.2 - 1.3 mg/dL [facility] Blood Urea 13 7 - 26 mg/dL [facility] Nitrogen [facility] Creatinine 0.7 0.4 - 1.1 mg/dL [facility] eGFR Female AA 101 60 - 200 [facility] Comment: [facility] Chronic Kidney Disease less [facility] than 60 mL/min/1.73 sq.m Kidney failure less than 15 mL/min/1.73 sq.m eGFR Female 84 60 - 200 [facility] Non-AA Comment: [facility]ERT ZAZUETA'[facility] Chronic Kidney Disease less [facility] than 60 mL/min/1.73 sq.m Kidney failure less than 15 mL/min/1.73 sq.m Specimen Blood Performing Organization Address City/State/Zipcode Ph one Number [facility] [address] [facility], [place] [phone] [facility] [address] [place] [address], [facility] LAB * CBC and Diff (manual [...] RDW 13.7 9.0 - 14.5 % [facility] Platelet Count 194 140 [...] SWANSON [address] [place] [address] [facility] [address] [place] [address], [facility] documented in this encounter Visit [...]
--- OUTSIDE RECORDS SUMMARY | 2020-03-16 13:58 | XMS REPORT | Encounter Summary ---
Author Author [facility] Organization [facility] Address Unknown Phone Unavailable Care Team Providers Care Railway Signal Operator Name Role Phone Ebony Sharp MD PCP Encounter Details Care Team Description Date Type Department Medardo Tate MD [address] [facility] [address] [place] [address] [phone] 09/06/2018 Documentation [facility] al Specialists [address] [facility] [address] [place], [place] [phone] Social History Date Tobacco Use Types Packs/Day [...]
--- OUTSIDE RECORDS SUMMARY | 2020-03-16 13:58 | XMS REPORT | Encounter Summary ---
Author Author [facility] Organization [facility] Address Unknown Phone Unavailable Care Team Providers Care Spiritual Minister Name Role Phone Ebony Sharp MD PCP Reason for Visit * Reason Comments Other Encounter Details Care Team Description Date Type Department Ebony Sharp MD [address] [facility] [address] [place], [place] [phone] Other 07/17/2018 Refill [facility] Primar y Care - East [address] [facility] [address] [place], [place] [phone] Social History Date Tobacco Use Types Packs/Day [...] Infection Onset Date 08/30/2019 08/30/2019 1:09 PM AIRPLANE PILOT PHOTOGRAMMETRY Influenza - Rule Out 08/30/2019 08/31/2019 09/17/2019 8:17 AM AIRPLANE PILOT PHOTOGRAMMETRY RSV 08/31/2019 documented as of this encounter
--- OUTSIDE RECORDS SUMMARY | 2020-03-16 13:58 | XMS REPORT | Encounter Summary ---
Author Author [facility] Organization [facility] Address Unknown Phone Unavailable Care Team Providers Care Trolley Operator Name Role Phone Ebony Sharp MD PCP Encounter Details Care Team Description Date Type Department Ebony Sharp MD [address] [facility] [address] [place], [place] [phone] 08/01/2018 Telephone [facility] [address] [facility] [address] [place] [address] Social History Date Tobacco Use [...] Sheryl Joaquin MA - 08/01/2018 9:05 AM BAG CUTTER Called pharmacy CUTTER documented in this encounter Plan of Treatment Not on filedocumented as of this encounter Visit Diagnoses Not on filedocumented in this encounter
--- OUTSIDE RECORDS SUMMARY | 2020-03-16 13:58 | XMS REPORT | Encounter Summary ---
Author Author [facility] Organization [facility] Address Unknown Phone Unavailable Care Team Providers Care Crank Hand Name Role Phone Ebony Sharp MD PCP Reason for Visit * Reason Comments Other Encounter Details Care Team Description Date Type Department Adelaida Olivas MD [address] [facility] [address] [place], [place] [phone] Other 07/17/2018 Refill [facility] [address] [facility] [address] [place], [place] [phone] Social History Date Tobacco Use Types Packs/Day [...] Infection Onset Date 08/30/2019 08/30/2019 1:09 PM REVERSAL PRINT INSPECTOR Influenza - Rule Out 08/30/2019 08/31/2019 09/17/2019 8:17 AM REVERSAL PRINT INSPECTOR RSV 08/31/2019 documented as of this encounter
--- OUTSIDE RECORDS SUMMARY | 2020-03-16 13:58 | XMS REPORT | Encounter Summary ---
Author Author [facility] Organization [facility] Address Unknown Phone Unavailable Care Team Providers Care Sail Cutter Name Role Phone Ebony Sharp MD PCP Reason for Visit * Diagnostic Imaging (Routine) Referred By Contact Referred To Contact Status Reason Specialty Diagnoses / Procedures Ebony Sharp MD [address] [address] [address] [facility] Dexa [address] [place] [address] Closed Radiology Diagnoses Healthcare maintenance P rocedures DEXA Bone Density Hip Pelvis Spine Encounter Details Care Team Description Date Type Department Ebony Sharp MD [address] [place] [phone] 09/12/2018 Imaging [facility] Primar y Care Appointment - [place] [address] [place], [place] [phone] Social History Date Tobacco Use Types Packs/Day [...] Healthca re maintenance PELVIS SPINE 3:16 PM BOX FEEDER documented in this encounter Results * DEXA Bone Density Hip Pelvis Spine (09/12/2018 3:16 PM BOX FEEDER) Specimen Narrative Performed At This result has an attachment that is n ot available. Performing Organization Address City/State/Zipcode Ph one Number [facility] documented in this encounter Visit Diagnoses Not on filedocumented in this encounter
--- OUTSIDE RECORDS SUMMARY | 2020-03-16 13:58 | XMS REPORT | Encounter Summary ---
Author Author [facility] Organization [facility] Address Unknown Phone Unavailable Care Team Providers Care Senior Project Architect Name Role Phone Ebony Sharp MD PCP Reason for Visit * Reason Comments Other Encounter Details Care Team Description Date Type Department bEony Sharp MD [address] [facility] [address] [place], [place] [phone] Other 08/30/2018 Refill [facility] Primar y Care - East [address] [facility] [address] [place], [place] [phone] Social History Date Tobacco Use Types Packs/Day [...]
--- OUTSIDE RECORDS SUMMARY | 2020-03-16 13:58 | XMS REPORT | Encounter Summary ---
Author Author [facility] Organization [facility] Address Unknown Phone Unavailable Care Team Providers Care Chaperon Name Role Phone Ebony Sharp MD PCP Encounter Details Care Team Description Date Type Department Ebony Sharp MD [address] [facility] [address] [place], [place] [id number] Benign essential HTN; Type 2 diabetes mellitus with hyperglycemia, 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); Hyperthyroidism 09/12/2018 Lab [facility] Primar y Care - [facility] [place] [address] [facility] [address] [place], [place] [id number] Social History Date Tobacco Use Types Packs/Day [...] Ebony Sharp MD - 09/12/2018 3:30 PM DIRECTOR DIGITAL CATALOGUE Let us get back on track with [...] make sure not to miss it please. CTOR DIGITAL CATALOGUE documented in this encounter Plan of Treatment Not on filedocumented as of this encounter Procedures Comments Procedure Name Priority Date/Time Associated Diag nosis MICROALBUMIN RANDOM Routine 09/12/2018 Type 2 bela betes mellitus 3:22 PM DIRECTOR DIGITAL CATALOGUE with hyperglycemia, with long-term current use of insulin ([facility]) THYROID STIMULATING Routine 09/12/2018 Hyperthyro idism HORMONE 3:22 PM DIRECTOR DIGITAL CATALOGUE T4 FREE Routine 09/12/2018 Hyperthyroidism 3:22 PM DIRECTOR DIGITAL CATALOGUE HEMOGLOBIN A1C Routine 09/12/2018 Type 2 diabetes mellitus 3:22 PM DIRECTOR DIGITAL CATALOGUE with hyperglycemia, with long-term current use of insulin ([facility]) COMPREHENSIVE METABOLIC Routine 09/12/2018 Benign essential HTN PANEL 3:22 PM DIRECTOR DIGITAL CATALOGUE Type 2 diabetes pato litus with hyperglycemia, with long-term current use of insulin ([facility]) documented in this encounter Results * Comprehensive Metabolic Panel (09/12/2018 3:22 PM DIRECTOR DIGITAL CATALOGUE) Sodium 139 133 - 147 MEQ/L [facility] Potassium 4.6 3.5 - 5.3 MEQ/L [facility] Chloride 99 96 - 112 MEQ/L [facility] Carbon Dioxide 34 (H) 20 - 32 MEQ/L [facility] Anion Gap 6 5 - 17 [facility] Calcium 9.9 8.4 - 10.5 mg/dL [facility] Glucose 253 (H) 70 - 100 mg/dL [facility] Protein Total 7.3 6.0 - 8.2 g/dL [facility] Serum [facility] Albumin 4.0 3.5 - 5.0 g/dL [facility] Alkaline 102 42 - 140 IU/L [facility] Phosphatase [facility] Alanine 47 (H)Comment: ALT reference 0 - 34 IU/L [facility] Aminotransferas range changed on 03-01-2018 [facility] e LABORATORIES Aspartate 45 15 - 46 IU/L [facility] Aminotransferas [facility] e [facility]ATORIES Bilirubin Total 0.2 0.2 - 1.3 mg/dL [facility] Blood Urea 16 7 - 26 mg/dL [facility] Nitrogen [facility] Creatinine 0.8 0.4 - 1.1 mg/dL [facility] eGFR Female AA 86 60 - 200 [facility] Comment: REGIONAL Chronic Kidney Disease less LABORATORIES than 60 mL/min/1.73 sq.m Kidney failure less than 15 mL/min/1.73 sq.m eGFR Female 72 60 - 200 [facility] Non-AA Comment: REGIONAL Chronic Kidney Disease less LABORATORIES than 60 mL/min/1.73 sq.m Kidney failure less than 15 mL/min/1.73 sq.m Specimen Blood Performing Organization Address City/[facility] one Number [address] [phone] LABORATORIES * T4 Free (09/12/2018 3:22 PM DIRECTOR DIGITAL CATALOGUE) T4 Free 1.1 0.8 - 2.2 ng/dL [facility] Specimen Blood Performing Organization Address [facility] one Number [address] [address] LABORATORIES * Thyroid Stimulating Hormone (09/12/2018 3:22 PM DIRECTOR DIGITAL CATALOGUE) Thyroid 0.04 (L) 0.47 - 4.68 uIU/mL [facility] Stimulating [facility] Hormone LABORATORIES Specimen Blood Performing Organization Address [facility], [facility] one Number [address] [phone] LABORATORIES * Microalbumin Random (09/12/2018 3:22 PM DIRECTOR DIGITAL CATALOGUE) Creatinine 320.3 mg/dL [facility] Urine Random [facility] Microalbumin 12.10 mg/dL [facility] mg/dl [facility] Microalbumin/Cr 37.78 (H) 0.00 - 30.00 ug/mg [facility] eatinine Ratio [facility] Specimen Urine Performing Organization Address [facility], [facility] one Number [address] [place] [address] LABORATORIES * Hemoglobin A1C (09/12/2018 3:22 PM DIRECTOR DIGITAL CATALOGUE) Hemoglobin A1C 11.6 (H) 4.0 - 5.6 % [facility] Comment: REGIONAL Non-diabetic 4.0 - LABORATORIES 5.6 % Prediabetes 5.7 - 6.4 % Diabetes >= 6.5 % Specimen Blood Performing Organization Address City/State/[facility] Ph one Number [facility] [address] [address] LABORATORIES documented in this encounter Visit Diagnoses Diagnosis Benign essential HTN Type 2 diabetes mellitus with hyperglyc emia, 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) Hyperthyroidism Thyrotoxicosis without mention of goite r or other cause, without mention of thyrotoxic crisis or storm documented in this encounter
--- OUTSIDE RECORDS SUMMARY | 2020-03-16 13:58 | XMS REPORT | Encounter Summary ---
Author Author [facility] Organization [facility] Address Unknown Phone Unavailable Care Team Providers Care Advanced Seal Delivery System Name Role Phone Ebony Sharp MD PCP Reason for Visit * Reason Comments Pre-op Exam Bypass consult Encounter Details Care Team Description Date Type Department Medardo Tate MD [address] [facility] [address] [place] [address] Morbid obesity due to excess calories (H CC) (Primary Dx); Type 2 diabetes mellitus with hyperglycemia, 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); Hyperlipidemia, unspecified hyperlipidemia type; Benign essential HTN; SASHA on CPAP 09/06/2018 Initial consult [facility] [address] [facility] [address] [place] [address] Social History Date Tobacco Use [...] Comments Vital Sign 166/98 09/06/2018 1:44 PM GREENHOUSE SPECIALIST Blood Pressure 76 09/06/2018 1:44 PM GREENHOUSE SPECIALIST Pulse 36.9 C (98.4 F) 09/06/2018 1:44 PM GREENHOUSE SPECIALIST Temperature - - Respiratory Rate - - Oxygen Saturation - - Inhaled Oxygen Concentration 106.6 kg (235 lb) 09/06/2018 1:44 PM GREENHOUSE SPECIALIST Weight 156.2 cm (5' 1.5") 09/06/2018 1:44 PM GREENHOUSE SPECIALIST Height 43.68 09/06/2018 1:44 PM GREENHOUSE SPECIALIST Body Mass Index documented in this encounter Progress Notes * Medardo Tate MD - 09/06/2018 2:00 PM GREENHOUSE SPECIALIST [facility] Office Visit Patient: Caren Patten is a 68 y.o. female 1950 CSN: [id number] PCP: Ebony Sharp MD Referring physician: No [...] basis with recommendations from our ex ercise director of marketing analytics HPI: Caren Patten is a 68 y.o. female who is being seen in consultation for [facility] surgery. She is known to me from a recent incisional hernia repair with mesh 3 months ago. Body mass index is 43.68 kg/m. Comorbidities are listed above. T he patient has tried multiple diets, commercial and other, without intermission coordinator suc cess, and would like to be [...] Surgeon: Adelaida Olivas MD; Location: [facility] [place]; Service: Orthopedics; Later ality: Left; REPAIR, INCISIONAL HERNIA, LAPAROSCOPIC, USING MESH N/A 05/25/2018 Procedure: LAPAROSCOPIC INCISIONAL HERNIA REPAIR WITH MESH; Surgeon: Medardo Tate MD; Location: [facility] [place]; Service: General; Laterality: [...] signed by: Medardo Tate MD, FACS 09/06/18 NHOUSE SPECIALIST documented in this encounter Plan of Treatment Not on filedocumented as of this encounter Visit Diagnoses Diagnosis Morbid obesity due to excess calories ( HCC) Type 2 diabetes mellitus with hyperglyc emia, 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) Hyperlipidemia, unspecified hyperlipide prasanna type Benign essential HTN SASHA on CPAP documented in this encounter
--- OUTSIDE RECORDS SUMMARY | 2020-03-16 13:58 | XMS REPORT | Encounter Summary ---
Author Author [facility] Organization [facility] Address Unknown Phone Unavailable Care Team Providers Care Pickle Processor Name Role Phone Ebony Sharp MD PCP Reason for Referral * Diagnostic Imaging (Routine) Referred By Contact Referred To Contact Status Reason Specialty Diagnoses / Procedures Ebony Sharp MD [address] [facility] [address] [place] [address] Sle Mammo [address] [facility], [address] [place] [address] Canceled Radiology Diagnoses Healthcare maintenance P rocedures MA Mammogram screening w CAD bilat * Diagnostic Imaging (Routine) Referred By Contact Referred To Contact Status Reason Specialty Diagnoses / Procedures Ebony Sharp MD [address] [facility] [address] [place] [address] Sle Slmg Ls Dexa [address] [place] [address] Closed Radiology Diagnoses Healthcare maintenance P rocedures DEXA Bone Density Hip Pelvis Spine Reason for Visit * Reason Comments Follow-up 6 months Encounter Details Care Team Description Date Type Department Ebony Sharp MD 20 [facility] [address] [place] [address] [phone] Chronic obstructive pulmonary disease, u nspecified COPD type (HCC) (Primary Dx); Hyperlipidemia, unspecified hyperlipidemia type; Benign essential HTN; MATA (generalized anxiety disorder); Type 2 diabetes mellitus with hyperglycemia, 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); Morbid obesity due to excess calories (HCC); Healthcare maintenance; Hair loss; Acne vulgaris; Hyperthyroidism 09/12/2018 Office Visit [facility] [address] [facility] [address] [place] [address] Social History Date Tobacco Use Types Packs/Day [...] Comments Vital Sign 150/80 09/12/2018 2:14 PM HEAD BANQUET WAITER/WAITRESS Blood Pressure 77 09/12/2018 2:14 PM HEAD BANQUET WAITER/WAITRESS Pulse - - Temperature - - Respiratory Rate 92% 09/12/2018 2:14 PM HEAD BANQUET WAITER/WAITRESS Oxygen Saturation - - Inhaled Oxygen Concentration 106.6 kg (235 lb) 09/12/2018 2:14 PM HEAD BANQUET WAITER/WAITRESS Weight 156.2 cm (5' 1.5") 09/12/2018 2:14 PM HEAD BANQUET WAITER/WAITRESS Height 43.68 09/12/2018 2:14 PM HEAD BANQUET WAITER/WAITRESS Body Mass Index documented in this encounter Progress Notes * Ebony Sharp MD - 09/12/2018 2:30 PM HEAD BANQUET WAITER/WAITRESS CC: Follow-up (6 months) HPI : Caren [...] insul in ([facility]) - Hemoglobin A1C; Future - Microalbumin Random; Future - Comprehensive Metabolic Panel; Future Morbid obesity due to excess calories ([facility]) Healthcare maintenance - DEXA [...] a possible disqualifying factor. Ebony Sharp MD BANQUET WAITER/WAITRESS documented in this encounter Plan of Treatment Order Schedule Name Type Priority Associated Diag noses 1 Occurrences starting 09/12/2018 until 11/08/2019 MA Mammogram screening w Imaging Routine Healt hcare maintenance CAD bilat documented as of this encounter Procedures Comments Procedure Name Priority Date/Time Associated Diag nosis DEXA BONE DENSITY HIP Routine 09/12/2018 [facility] re maintenance PELVIS SPINE 3:16 PM HEAD BANQUET WAITER/WAITRESS documented in this encounter Results * Comprehensive Metabolic Panel (09/12/2018 3:22 PM HEAD BANQUET WAITER/WAITRESS) Sodium 139 133 - 147 MEQ/L [facility] Potassium 4.6 3.5 - 5.3 MEQ/L [facility] Chloride 99 96 - 112 MEQ/L [facility] Carbon Dioxide 34 (H) 20 - 32 MEQ/L [facility] Anion Gap 6 5 - 17 [facility] Calcium 9.9 8.4 - 10.5 mg/dL [facility] Glucose 253 (H) 70 - 100 mg/dL [facility] Protein Total 7.3 6.0 - 8.2 g/dL [facility] Serum [facility] Albumin 4.0 3.5 - 5.0 g/dL [facility] Alkaline 102 42 - 140 IU/L [facility] Phosphatase [facility] Alanine 47 (H)Comment: ALT reference 0 - 34 IU/L [facility] Aminotransferas range changed on 03-01-2018 [facility] e LABORATORIES Aspartate 45 15 - 46 IU/L [facility] Aminotransferas [facility] e [facility] Bilirubin Total 0.2 0.2 - 1.3 mg/dL [facility] Blood Urea 16 7 - 26 mg/dL [facility] Nitrogen [facility] Creatinine 0.8 0.4 - 1.1 mg/dL [facility] eGFR Female AA 86 60 - 200 [facility] Comment: REGIONAL Chronic Kidney Disease less LABORATORIES than 60 mL/min/1.73 sq.m Kidney failure less than 15 mL/min/1.73 sq.m eGFR Female 72 60 - 200 [facility] Non-AA Comment: REGIONAL Chronic Kidney Disease less LABORATORIES than 60 mL/min/1.73 sq.m Kidney failure less than 15 mL/min/1.73 sq.m Specimen Blood Performing Organization Address [facility] one Number [address] [phone] LABORATORIES * T4 Free (09/12/2018 3:22 PM HEAD BANQUET WAITER/WAITRESS) T4 Free 1.1 0.8 - 2.2 ng/dL [facility] Specimen Blood Performing Organization Address [facility] one Number [address] [phone] LABORATORIES * Thyroid Stimulating Hormone (09/12/2018 3:22 PM HEAD BANQUET WAITER/WAITRESS) Thyroid 0.04 (L) 0.47 - 4.68 uIU/mL [facility] Hormone LABORATORIES Specimen Blood Performing Organization Address [facility] one Number [address] [address] LABORATORIES * Microalbumin Random (09/12/2018 3:22 PM HEAD BANQUET WAITER/WAITRESS) Creatinine 320.3 mg/dL [facility] Urine Random [facility] Microalbumin 12.10 mg/dL [facility] mg/dl [facility] Microalbumin/Cr 37.78 (H) 0.00 - 30.00 ug/mg [facility] eatinine Ratio [facility] Specimen Urine Performing Organization Address [facility] one Number [facility] [address] [address] LABORATORIES * Hemoglobin A1C (09/12/2018 3:22 PM HEAD BANQUET WAITER/WAITRESS) Hemoglobin A1C 11.6 (H) 4.0 - 5.6 % [facility] Comment: REGIONAL Non-diabetic 4.0 - LABORATORIES 5.6 % Prediabetes 5.7 - 6.4 % Diabetes >= 6.5 % Specimen Blood Performing Organization Address [facility] Ph one Number [facility] [address] [address] LABORATORIES * DEXA Bone Density Hip Pelvis Spine (09/12/2018 3:16 PM HEAD BANQUET WAITER/WAITRESS) Specimen Narrative Performed At This result has an attachment that is n ot available. Performing Organization Address [facility] one [facility] documented in this encounter Visit Diagnoses Diagnosis Chronic obstructive pulmonary disease, unspecified COPD type (HCC) Hyperlipidemia, unspecified hyperlipide prasanna type Benign essential HTN MATA (generalized anxiety disorder) Generalized anxiety disorder Type 2 diabetes mellitus with hyperglyc emia, with long-term current use of insulin ([facility]) Morbid obesity due to excess calories ( [facility]) Healthcare maintenance Hair loss Unspecified alopecia Acne vulgaris Other acne Hyperthyroidism Thyrotoxicosis without mention of goite r or other cause, without mention of thyrotoxic crisis or storm documented in this encounter
--- OUTSIDE RECORDS SUMMARY | 2020-03-16 13:58 | XMS REPORT | Encounter Summary ---
Author Author [facility] Organization [facility] Address Unknown Phone Unavailable Care Team Providers Care Courtesy Driver Name Role Phone Ebony Sharp MD PCP Reason for Visit * Auth/Cert (Routine) Referred By Contact Referred To Contact Status Reason Specialty Diagnoses / Procedures Medardo Tate MD [address] [address] Pending Review Procedures Case request operating room: REPAIR, HERNIA, INCISIONAL, LAPAROSCOPIC, USING MESH Encounter Details Care Team Description Date Type Department Ariel Hernandez MD [address] [place] [address] [phone] Glenys Howe CRNA [address] [place] [address] [phone] 05/25/2018 Anesthesia [facility] [address] [place] [address] Anesthesia Record Responsible Anesthesiologist Anesthesia Start Time [...] by serena Airway placement: Yes; Placed By: Paradi Operator; Site: Oral; Device: ETT - Cuffed; [...] risks discussed with patient. Plan discussed with 3RD PRESSMAN. Post-operative analgesia: routine analgesia and antiemetics Recovery [...]
--- OUTSIDE RECORDS SUMMARY | 2020-03-16 13:58 | XMS REPORT | Encounter Summary ---
Author Author [facility] Organization [facility] Address Unknown Phone Unavailable Care Team Providers Care Knotter Hand Name Role Phone Ebony Sharp MD PCP Reason for Visit * Reason Comments Other Encounter Details Care Team Description Date Type Department Ebony Sharp MD [address] [facility] [address] [place], [place] [phone] Other 06/21/2018 Refill [facility] Primar y Care - [place] [address] [facility] [address] [place], [place] [id number] Social History Date Tobacco Use Types Packs/Day [...]
--- OUTSIDE RECORDS SUMMARY | 2020-03-16 13:58 | XMS REPORT | Encounter Summary ---
Author Author [facility] Organization Address Unknown Phone Unavailable Care Team Providers Care Meter Engineer Name Role Phone Ebony Sharp MD PCP Reason for Visit * Reason Comments Other Encounter Details Care Team Description Date Type Department Ebony Sharp MD [address] [facility] [address] [place], [place] [phone] Other 07/28/2018 Refill [facility] Primar y Care - East [address] [facility] [address] [place], [place] [address] Social History Date Tobacco Use Types Packs/Day [...] Infection Onset Date 08/30/2019 08/30/2019 1:09 PM AUTOMATION DEVELOPER Influenza - Rule Out 08/30/2019 08/31/2019 09/17/2019 8:17 AM AUTOMATION DEVELOPER RSV 08/31/2019 documented as of this encounter
--- OUTSIDE RECORDS SUMMARY | 2020-03-16 13:59 | XMS REPORT | Encounter Summary ---
Author Author [facility] Organization [facility] Address Unknown Phone Unavailable Care Team Providers Care Injury Prevention Coordinator Name Role Phone Ebony Sharp MD PCP Encounter Details Care Team Description Date Type Department RiatJennifer RN Hepatitis C antibody test positive (Prim emigdio Dx) 04/11/2018 Orders Only [facility] Primar y Care - East [address] [facility] [address] [place], [place] [phone] Social History Date Tobacco Use Types Packs/Day [...]
--- OUTSIDE RECORDS SUMMARY | 2020-03-16 13:59 | XMS REPORT | Encounter Summary ---
Author Author [facility] Organization [facility] Address Unknown Phone Unavailable Care Team Providers Care Clinical Liaison Name Role Phone Ebony Sharp MD PCP Reason for Referral * MRI/CAT/PET Scan (Routine) Referred By Contact Referred To Contact Status Reason Specialty Diagnoses / Procedures Ebony Sharp MD [address] [place] [address] Closed Radiology Diagnoses Periumbilical abdominal pain P rocedures CT Abdomen Pelvis w contrast Reason for Visit * MRI/CAT/PET Scan (Routine) Referred By Contact Referred To Contact Status Reason Specialty Diagnoses / Procedures Ebony Sharp MD [address] [place] [address] Closed Radiology Diagnoses Periumbilical abdominal pain P rocedures CT Abdomen Pelvis w contrast Encounter Details Care Team Description Date Type Department Ebony Sharp MD [address] [place] [phone] Periumbilical abdominal pain 04/10/2018 [facility] [address] [facility] [place] [address] Social History Date Tobacco Use Types Packs/Day [...] Performed At Tiny fat-containing left periumbilical hernia [facility] No acute CT abnormality within the abdo men or pelvis Nonobstructing left renal calculus READING SITE: [facility] Imaging Narrative Performed At Patient: ISIAH BENÍTEZ Sex#: F # [id number] Jose#: [id number] Location: [facility] CT Procedure Requested: [id number] CT ABDOM EN PELVIS W CONTRAST Reason [...] ISIAH BENÍTEZ Sex#: F # [id number] Jose#: [id number] Location: [facility] CT Procedure Requested: [id number] CT ABDOMEN PELVIS W CONTRAST Reason for [...] pelvis Nonobstructing left renal calculus READING SITE: [facility] Imaging Performing Organization Address City/State/Zipcode Ph one [...]
--- OUTSIDE RECORDS SUMMARY | 2020-03-16 13:59 | XMS REPORT | Encounter Summary ---
Author Author [facility] Organization [facility] Address Unknown Phone Unavailable Care Team Providers Care Crossbar Switch Adjuster Name Role Phone Ebony Sharp MD PCP Reason for Visit * Reason Comments Abdominal Pain left abd pain, recently bela gnosed with hernia. has surgeon appt today at 1345- but pain too bad to wait, kunal, 05/02. Encounter Details Care Team Description Date Type Department Celso Palma, DO [address] [place], [place] [id number] Umbilical hernia without obstruction and without gangrene (Primary Dx) 04/19/2018 Emergency [facility] [address] [place], [place] [address] Social History Date Tobacco Use Types Packs/Day [...] through Care Everywhere.* Hernia, What Is a (Comoran) * HERNIA (INGUINAL, VENTRAL, UMBILICAL) (TRISTANIAN) documented in this encounter Medications at Time [...] DO - 04/19/2018 12:25 PM CDT 04/19/2018 [facility] History Chief Complaint Patient presents with Abdominal [...] ANKLE ARTHRODESIS; Surgeon: Adelaida Olivas MD; Location: [facility] [place] [facility] [place]; Service: [...] and discussed the patient had arrived to [facility] ER today with a recent [...] other significant abnormality is identified. READING SITE: [facility] NOTE: Parts of this report were generated [...] 0.0 - 2.0 mmol/L [facility] Specimen Blood Performing Organization Address City/State/Zipcode Ph one Number [facility] [address] [facility] [place] [address] [facility] [address] [facility] [place] [address], [place] [phone] [facility] * Lipase (04/19/2018 1:30 PM CDT) Lipase 76 23 - 300 IU/L [facility] Specimen Blood Performing Organization Address City/State/[facility] Ph one Number [facility] [address] [facility] [place] [address] [facility] [address] [facility] [place] [address], [place] [phone] [facility] * Comprehensive Metabolic Panel (04/19/2018 1:30 PM CDT) Sodium 138 133 - 147 MEQ/L [facility] Potassium 4.0 3.5 - 5.3 MEQ/L [facility] Chloride 99 96 - 112 MEQ/L [facility] Carbon Dioxide 32 20 - 32 MEQ/L [facility] Anion Gap 7 5 - 17 [facility] Calcium 9.9 8.4 - 10.5 mg/dL [facility] Glucose 130 (H) 70 - 100 mg/dL [facility] Protein Total 8.3 (H) 6.0 - 8.2 g/dL [facility] Serum [facility] Albumin 4.5 3.5 - 5.0 g/dL [facility] Alkaline 96 42 - 140 IU/L [facility] Phosphatase [facility] Alanine 33Comment: ALT reference range 0 - 34 IU/L [facility] Aminotransferas changed on 03-01-2018 [facility] e [facility] Aspartate 40 15 - 46 IU/L [facility] Aminotransferas [facility] Bilirubin Total 0.4 0.2 - 1.3 mg/dL [facility] Blood Urea 20 7 - 26 mg/dL [facility] Nitrogen [place] [facility] Creatinine 0.8 0.4 - 1.1 mg/dL [facility] eGFR Female AA 86 60 - 200 [facility] Comment: [facility] Chronic Kidney Disease less [facility] than 60 mL/min/1.73 sq.m Kidney failure less than 15 mL/min/1.73 sq.m eGFR Female 72 60 - 200 [facility] Non-AA Comment: [facility] Chronic Kidney Disease less [facility] than 60 mL/min/1.73 sq.m Kidney failure less than 15 mL/min/1.73 sq.m Specimen Blood Performing Organization Address City/State/Zipcode Ph one Number [facility] [address] [employer] [facility] [place] [address] [facility] [address] [facility] All Def Digital [facility] [place] [address], [facility] * CBC and Diff (manual diff if necessary) (04/19/2018 1:30 PM CDT) WBC 9.23 4.00 - 11.00 TH/uL [place] [place] Z[place] [facility] RBC 4.58 4.00 - 5.00 MIL/uL [facility] [place] [facility] Hemoglobin 14.9 12.0 - 15.0 g/dL [facility] Hematocrit 43 36 - 45 % [place] PRICE [place] [facility] MCV 95 80 - 99 fL [facility] MCH 33 27 - 34 pg [facility] MCHC 34 32 - 36 % [facility] RDW 14.0 9.0 - 14.5 % [facility] Platelet Count 160 140 - 400 TH/uL [facility] MPV 10.1 9.4 [...] 1.0 - 3.3 TH/uL [facility] # Monocytes 1.00 (H) 0.2 - 0.9 TH/uL [facility] # Eosinophils 0.41 (H) 0.0 - 0.4 TH/uL [facility] # Basophils 0.04 0.0 - 0.1 TH/uL [facility] Specimen Blood Performing Organization Address City/State/Zipcode Ph one Number [facility] [address] [place] [address] [facility] [address] [facility] [address], [facility] * XR Abdomen min 2 [...] significant abnormality is ирина ntified. READING SITE: [facility] NOTE: Parts of this report were generated wit Parallel Universe voice recognition software. J Digit Imagin2010;24(4):724-8. Narrative Performed At Patient: ISIAH BENÍTEZ Sex#: Paulina # [id number] Jose#: [id number] Location: [facility]- Procedure Requested: [id number] XR ABDOM EN MIN 2 VIEWS Reason for Exam: ABDOMINAL PAIN Exam Ordered: 04/19/2018 12 45 Exam Date/Time: 04/19/2018 130 4 Begin exam date/time: 04/19/2018 125 0 3 images of the abdomen provided on this study; Comparison: None Procedure Note Interface, Rad Results In - 04/19/2018 1:40 PM CDT Patient: ISIAH BENÍTEZ Sex#: F # [id number] Jose#: [id number] Location: [facility]- Procedure Requested: [id number] XR ABDOMEN MIN 2 VIEWS Reason for [...] other significant abnormality is identified. READING SITE: [facility] NOTE: Parts of this report were generated [...]
--- OUTSIDE RECORDS SUMMARY | 2020-03-16 13:59 | XMS REPORT | Encounter Summary ---
Author Author [facility] Organization [facility] Address Unknown Phone Unavailable Care Team Providers Care Computer Assembler Name Role Phone Ebony Sharp MD PCP Reason for Visit * Reason Comments Other Encounter Details Care Team Description Date Type Department Ebony Sharp MD [address] [facility] [address] [place] [address] Other 04/17/2018 Refill [facility] Primar y [facility] - [facility] [address] [facility] [address] [place], [place] [id number] Social History Date Tobacco Use Types Packs/Day [...] CDT Influenza 08/30/2017 08/30/2019 08/30/2019 1:09 PM CANE WEIGHER HELPER Influenza - Rule Out 08/30/2019 08/31/2019 09/17/2019 8:17 AM CANE WEIGHER HELPER RSV 08/31/2019 documented as of this encounter
--- OUTSIDE RECORDS SUMMARY | 2020-03-16 13:59 | XMS REPORT | Encounter Summary ---
Author Author [facility] Organization [facility] Address Unknown Phone Unavailable Care Team Providers Care Informatics Pharmacist Name Role Phone Ebnoy Sharp MD PCP Reason for Visit * Auth/Cert (Routine) Referred By Contact Referred To Contact Status Reason Specialty Diagnoses / Procedures Medardo Tate MD [address] [facility] [address] [place] [address] Pending Review Procedures Case request operating room: REPAIR, HERNIA, INCISIONAL, LAPAROSCOPIC, USING MESH Encounter Details Care Team Description Date Type Department Medardo Tate MD [address] [place] [address] [phone] Incarcerated incisional hernia 05/25/2018 [facility] [address] [place], [place] [id number] Social History Date Tobacco Use Types Packs/Day [...] s under the skin nightly. insulin syringe ([employer] ULTRA-FINE) 0.3 mL 31 gauge x 5/16 [...] sent through Care Everywhere.* Hernia Surgery, After (Turkmen) documented in this encounter Medications at Time [...] 70 - 100 mg/dL [facility] [facility] Specimen Performing Organization Address City/State/Zipcode Ph one Number [facility] [address] [facility] [place], [place] [address] [facility] [address] [facility] [place] [address], [facility] documented in this encounter Visit Diagnoses [...]
--- OUTSIDE RECORDS SUMMARY | 2020-03-16 13:59 | XMS REPORT | Encounter Summary ---
Author Author [facility] Organization [facility] Address Unknown Phone Unavailable Care Team Providers Care Package Handler Name Role Phone Ebony Sharp MD PCP Reason for Referral * Surgical (Routine) Referred By Contact Referred To Contact Status Reason Specialty Diagnoses / Procedures Ebony Sharp MD [address] [facility] [address] [place] [address] Medardo Tate MD [address] [facility] [address] [place] [address] Closed Specialty Services General Surgery Diagnoses Required Hernia of abdominal wall Encounter Details Care Team Description Date Type Department RehfuadtJennifer RN Hernia of abdominal wall (Primary Dx) 04/11/2018 Orders Only [facility] Primar y [facility] [address] [facility] [address] [place] [id number] Social History Date Tobacco Use Types Packs/Day [...]
--- OUTSIDE RECORDS SUMMARY | 2020-03-16 13:59 | XMS REPORT | Encounter Summary ---
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 Care Abstractor Name Role Phone Ebony Sharp MD PCP Reason for Visit * Auth/Cert (Routine) Referred By Contact Referred To Contact Status Reason Specialty Diagnoses / Procedures Medardo Tate MD [address] [facility] [address] [place] [address] Pending Review Procedures Case request operating room: REPAIR, HERNIA, INCISIONAL, LAPAROSCOPIC, USING MESH Encounter Details Care Team Description Date Type Department Medardo Tate MD [address] [facility] [address] [place] [address] [phone] LAPAROSCOPIC INCISIONAL HERNIA REPAIR WI TH MESH 05/25/2018 Surgery [facility] [address] [place], [place] [address] Social History Date Tobacco Use Types Packs/Day [...] s under the skin nightly. insulin syringe ([employer] ULTRA-FINE) 0.3 mL 31 gauge x 5/16 [...] sent through Care Everywhere.* Hernia Surgery, After (Montenegrin) documented in this encounter Medications at Time [...] CDT OPERATIVE NOTE PATIENT NAME: Caren Do [facility] DATE: 05/25/2018 AGE: 67 y.o. : 1950 [...] 70 - 100 mg/dL [facility] [place] [facility] Specimen Performing Organization Address City/State/Zipcode Ph one Number [facility] [address] [place] [address] [facility] [address] [place] [address], [facility] documented in this encounter Visit [...]
--- OUTSIDE RECORDS SUMMARY | 2020-03-16 13:59 | XMS REPORT | Encounter Summary ---
Author Author [facility] Organization [facility] Address Unknown Phone Unavailable Care Team Providers Care Production Counter Name Role Phone Ebony Sharp MD PCP Reason for Referral * Auth/Cert (Routine) Referred By Contact Referred To Contact Status Reason Specialty Diagnoses / Procedures Medardo Tate MD [address] [facility] [address] [place] [address] Pending Review Procedures Case request operating room: REPAIR, HERNIA, INCISIONAL, LAPAROSCOPIC, USING MESH Encounter Details Care Team Description Date Type Department Rose Polo RN 04/26/2018 Prep for [facility] [address] [facility] [address] [place], [place] [address] Social History Date Tobacco Use Types Packs/Day [...]
--- OUTSIDE RECORDS SUMMARY | 2020-03-16 13:59 | XMS REPORT | Encounter Summary ---
Author Author [facility] Organization [facility] Address Unknown Phone Unavailable Care Team Providers Care Cloth Mercerizer Operator Name Role Phone Ebony Sharp MD PCP Reason for Visit * Reason Comments Hernia Encounter Details Care Team Description Date Type Department Medardo Tate MD [address] [facility] [address] [place], [place] [phone] Incisional hernia, without obstruction o r gangrene (Primary Dx) 04/26/2018 Initial consult [facility] [address] [facility] [address] [place], [place] [address] Social History Date Tobacco Use Types Packs/Day [...] is a 67 y.o. female 1950 CSN: [id number] Chief Complaint Patient presents with Hernia HPI: [...] ANKLE ARTHRODESIS; Surgeon: Adelaida Olivas MD; [place] [facility] [place]; Service: [...]
--- OUTSIDE RECORDS SUMMARY | 2020-03-16 13:59 | XMS REPORT | Encounter Summary ---
Author Author [facility] Organization [facility] Address Unknown Phone Unavailable Care Team Providers Care Search Consultant Name Role Phone Ebony Sharp MD PCP Reason for Visit * Reason Comments Medication Refill Encounter Details Care Team Description Date Type Department Medardo Tate MD [address] [facility] [address] [place] [address] [phone] Medication Refill 05/11/2018 Refill [facility] [address] [place], [place] [address] Social History Date Tobacco Use Types Packs/Day [...]
--- OUTSIDE RECORDS SUMMARY | 2020-03-16 13:59 | XMS REPORT | Encounter Summary ---
Author Author [facility] Organization [facility] Address Unknown Phone Unavailable Care Team Providers Care Gear Hobber Name Role Phone Ebony Sharp MD PCP Reason for Visit * Reason Comments Medication Refill Encounter Details Care Team Description Date Type Department Jennifer Feng RN Medication Refill 04/26/2018 Refill [facility] Primnm y [facility] [address] [facility] [address] [place], [place] [address] Social History Date Tobacco Use Types Packs/Day [...]
--- OUTSIDE RECORDS SUMMARY | 2020-03-16 13:59 | XMS REPORT | Encounter Summary ---
Author Author [facility] Organization [facility] Address Unknown Phone Unavailable Care Team Providers Care Mining Analyst Name Role Phone Ebony Sharp MD PCP Reason for Visit * Reason Comments Medication Refill Encounter Details Care Team Description Date Type Department Ebony Sharp MD [address] [facility] [address] [place], [place] [phone] Medication Refill 04/20/2018 Refill [facility] Primar y Care - [facility] [address] [facility] [address] [place], [place] [address] Social History Date Tobacco Use Types Packs/Day [...]
--- OUTSIDE RECORDS SUMMARY | 2020-03-16 13:59 | XMS REPORT | Encounter Summary ---
Author Author [facility] Organization [facility] Address Unknown Phone Unavailable Care Team Providers Care Link Machine Operator Name Role Phone Ebony Sharp MD PCP Encounter Details Care Team Description Date Type Department Jennifer Feng RN 04/19/2018 Telephone [facility] Primar y Care - [facility] [address] [facility] [address] [place], [place] [address] Social History Date Tobacco Use Types Packs/Day [...]
--- OUTSIDE RECORDS SUMMARY | 2020-03-16 13:59 | XMS REPORT | Encounter Summary ---
Author Author [facility] Organization [facility] Address Unknown Phone Unavailable Care Team Providers Care Reimbursement Specialist Name Role Phone Ebony Sharp MD PCP Reason for Visit * Reason Comments Other Encounter Details Care Team Description Date Type Department Ebony Sharp MD [address] [facility] [address] [place], [place] [address] Other 04/26/2018 Refill [facility] Primar y Care - [facility] [address] [facility] [address] [place], [place] [address] Social History Date Tobacco Use Types Packs/Day [...]
--- OUTSIDE RECORDS SUMMARY | 2020-03-16 14:00 | XMS REPORT | Encounter Summary ---
Author Author [facility] Organization [facility] Address Unknown Phone Unavailable Care Team Providers Care Motor Pool Driver Name Role Phone Ebony Sharp MD PCP Reason for Visit * Reason Comments Follow-up 6 months Encounter Details Care Team Description Date Type Department Ebony Sharp MD [address] [facility] [address] [place] [address] SASHA on CPAP (Primary Dx); COPD exacerbation (HCC); Hyperlipidemia, unspecified hyperlipidemia type; Benign essential HTN; Type 2 diabetes mellitus with hyperglycemia, 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); Routine adult health maintenance; Need for hepatitis C screening test 01/06/2018 Office Visit [facility] [address] [facility] [address] [place] [address] Social History Date Tobacco Use [...]
--- OUTSIDE RECORDS SUMMARY | 2020-03-16 14:00 | XMS REPORT | Encounter Summary ---
Author Author [facility] Organization [facility] Address Unknown Phone Unavailable Care Team Providers Care Ladle Filler Name Role Phone Ebony Sharp MD PCP Encounter Details Care Team Description Date Type Department Adelaida Olivas MD [address] [facility] [address] [place] [address] 03/10/2018 [facility] [address] [facility] [address] [place] [address] Social History Date Tobacco Use [...] Tylenol #4. P lease call back at [phone] Call taken by: Kate Washington on March 10, 2018 11:47 AM Follow-up for Phone Call Follow-up Details: Patient is at front clerk stating pharmacy never received Escr ipt. She [...] used: Print then Give to Patient RxID: [id number] documented in this encounter Plan of Treatment Not on filedocumented as of this encounter Visit Diagnoses Not on filedocumented in this encounter Additional Health Concerns Last Indicated Resolved Time Infection Onset Date 08/30/2017 04/19/2018 12:13 PM CDT Influenza 08/30/2017 08/30/2019 08/30/2019 1:09 PM BOTTOM PRESSER Influenza - Rule Out 08/30/2019 08/31/2019 09/17/2019 8:17 AM BOTTOM PRESSER RSV 08/31/2019 documented as of this encounter
--- OUTSIDE RECORDS SUMMARY | 2020-03-16 14:00 | XMS REPORT | Encounter Summary ---
Author Author [facility] Organization [facility] Address Unknown Phone Unavailable Care Team Providers Care Master Carpenter Name Role Phone Ebony Sharp MD PCP Encounter Details Care Team Description Date Type Department Adelaida Olivas MD [address] [facility] [address] [place], [place] [id number] 02/25/2018 [facility] [address] [facility] [address] [place], [place] [phone] Social History Date Tobacco Use Types Packs/Day [...] Mello on 02/28/2018 Method used: [facility] [address] [place] [address] Ph: [phone] Fax: [phone] RxID: [id number] documented in this encounter Plan of Treatment Not on filedocumented as of this encounter Visit Diagnoses Not on filedocumented in this encounter Additional Health Concerns Last Indicated Resolved Time Infection Onset Date 08/30/2017 04/19/2018 12:13 PM CDT Influenza 08/30/2017 08/30/2019 08/30/2019 1:09 PM CSR Influenza - Rule Out 08/30/2019 08/31/2019 09/17/2019 8:17 AM CSR RSV 08/31/2019 documented as of this encounter
--- OUTSIDE RECORDS SUMMARY | 2020-03-16 14:00 | XMS REPORT | Encounter Summary ---
Author Author [facility] Organization [facility] Address Unknown Phone Unavailable Care Team Providers Care Farmworker Poultry Name Role Phone Ebony Sharp MD PCP Encounter Details Care Team Description Date Type Department Adelaida Olivas MD [address] [facility] [address] [place], [place] [id number] 02/10/2018 Hist-Transcript [facility] En[facility] Specialists [address] [facility] [address] [place], [place] [address] Social History Date Tobacco Use Types Packs/Day [...] spe cific complaints. Impression LEFT ANKLE PAIN ([id number]) CONTRACTURE OF ANKLE JOINT LEFT ([id number]) LEFT ANKLE PRIMARY OSTEOARTHRITIS ([id number]) Status post ankle fusion, currently doing well. [...] 1 po q daily VITAMIN D (ERGOCALCIFEROL) 76126 UNIT ORAL CAPSULE (ERGOCALCIFEROL) 1 po q [...] used: Print then Give to Patient RxID: [id number] Review of Systems General: Complains of fatigue. [...] CDT Influenza 08/30/2017 08/30/2019 08/30/2019 1:09 PM OPTICAL DESIGN ENGINEER Influenza - Rule Out 08/30/2019 08/31/2019 09/17/2019 8:17 AM OPTICAL DESIGN ENGINEER RSV 08/31/2019 documented as of this encounter
--- OUTSIDE RECORDS SUMMARY | 2020-03-16 14:00 | XMS REPORT | Encounter Summary ---
Author Author [facility] Organization [facility] Address Unknown Phone Unavailable Care Team Providers Care Network Services Project Manager Name Role Phone Ebony Sharp MD PCP Reason for Referral * MRI/CAT/PET Scan (Routine) Referred By Contact Referred To Contact Status Reason Specialty Diagnoses / Procedures Ebony Sharp MD [address] [facility] [address] [place] [address] [place] [address] Closed Radiology Diagnoses Periumbilical abdominal pain P rocedures CT Abdomen Pelvis w contrast * Diagnostic Imaging (Routine) Referred By Contact Referred To Contact Status Reason Specialty Diagnoses / Procedures Ebony Sharp MD [address] [facility] [address] [place] [address] Sle Mammo [address] [facility], [address] [place] [address] Canceled Radiology Diagnoses Healthcare maintenance P rocedures MA Mammogram screening w CAD bilat Reason for Visit * Reason Comments Follow-up 3 months AWV Abdominal Pain knot on abdomen Encounter Details Care Team Description Date Type Department Ebony Sharp MD [address] [facility] [address] [place] [address] [phone] Chronic obstructive pulmonary disease, u nspecified COPD [...] hyperthyroidism; Periumbilical abdominal pain 04/07/2018 Office Visit [facility] [address] [facility] [address] [place], [place] [id number] Social History Date Tobacco Use Types Packs/Day [...] as PCP - Eliecer Rosenberg MA as Pattern Scratcher The patients demographics, including age, gender, race, [...] in nightly. 10 mL 0 insulin syringe (Reissued ULTRA-FINE) 0.3 mL 31 gauge x 5/16 [...] pelvis Nonobstructing left renal calculus READING SITE: [facility] Imaging Narrative Performed At Patient: ISIAH BENÍTEZ Sex#: F # [id number] Jose#: [id number] [place] [facility] [place] Procedure Requested: [id number] CT ABDOM EN PELVIS W CONTRAST Reason [...] ISIAH BENÍTEZ Sex#: F # [id number] Jose#: [id number] [place]: [facility] Procedure Requested: [id number] CT ABDOMEN PELVIS W CONTRAST Reason for [...] pelvis Nonobstructing left renal calculus READING SITE: [facility] Imaging Performing Organization Address City/State/Zipcode Ph one Number [email or web address] * Comprehensive Metabolic Panel (04/07/2018 3:03 PM CDT) Sodium 138 133 - 147 MEQ/L [facility] Potassium 4.1 3.5 - 5.3 MEQ/L [facility] LABORATORIES Chloride 98 96 - 112 MEQ/L [facility] LABOR[facility]IES Carbon Dioxide 34 (H) 20 - 32 MEQ/L [facility] Anion Gap 6 5 - 17 [facility] Calcium 9.2 8.4 - 10.5 mg/dL [facility] Glucose 128 (H) 70 - 100 mg/dL [facility] Protein Total 7.8 6.0 - 8.2 g/dL [facility] Serum [facility] Albumin 4.2 3.5 - 5.0 g/dL [facility] Alkaline 88 42 - 140 IU/L [facility] Phosphatase [facility] Alanine 27Comment: ALT reference range 0 - 34 IU/L [facility] Aminotransferas changed on 03-01-2018 REGIONAL e LABORATORIES Aspartate 31 15 - 46 IU/L [facility] Aminotransferas [facility] e LABORATORIES Bilirubin Total 0.3 0.2 - 1.3 mg/dL [facility] Blood Urea 19 7 - 26 mg/dL [facility] Nitrogen [facility] Creatinine 0.7 0.4 - 1.1 mg/dL [facility] eGFR Female AA 101 60 - 200 [facility] Comment: REGIONAL Chronic Kidney Disease less LABORATORIES than 60 mL/min/1.73 sq.m Kidney failure less than 15 mL/min/1.73 sq.m eGFR Female 84 60 - 200 [facility] Non-AA Comment: REGIONAL Chronic Kidney Disease less LABORATORIES than 60 mL/min/1.73 sq.m Kidney failure less than 15 mL/min/1.73 sq.m Specimen Blood Performing Organization Address [facility] one Number [address] [address] LABORATORIES * T4 Free (04/07/2018 3:03 PM CDT) T4 Free 1.2 0.8 - 2.2 ng/dL [facility] LABOR[facility]IES Specimen Blood Performing Organization Address [facility] one Number [address] [address] LABORATORIES * Thyroid Stimulating Hormone (04/07/2018 3:03 PM CDT) Thyroid 0.09 (L) 0.47 - 4.68 uIU/mL [facility] Hormone LABORATORIES Specimen Blood Performing Organization Address [facility] one Number [address] [address] LABORATORIES * Hemoglobin A1C (04/07/2018 3:03 PM CDT) Hemoglobin A1C 8.2 (H) 4.0 - 5.6 % [facility] Comment: REGIONAL Non-diabetic 4.0 - LABORATORIES 5.6 % Prediabetes 5.7 - 6.4 % Diabetes >= 6.5 % Specimen Blood Performing Organization Address City/[facility] Ph one Number [facility] [address] LABORATORIES * Lipid Panel (04/07/2018 3:03 PM CDT) Cholesterol 244 (H) 100 - 200 mg/dL [facility] HDL Cholesterol 59 40 - 110 mg/dL [facility] Non-HDL 185 (H) 0 - 130 mg/dL [facility] Triglycerides 142 0 - 150 mg/dL [facility] LDL Cholesterol 157 (H) 0 - 99 mg/dL [facility] Cholesterol/HDL 4.1 0.0 - 4.5 [facility] Ratio [facility] LAB[facility]IES Specimen Blood Performing Organization Address City/[facility] one Number [facility] [place] [address] LABORATORIES * Hepatitis C Antibody (04/07/2018 3:03 PM CDT) Hepatitis C Ab Reactive (A) Non-reactive [facility] SCO Ratio 3.89Comment: S/CO ratio <10.0 [facility] may indicate a false positive REGIONAL HCV antibody, especially in LABORATORIES low risk populations. Confirmation by HCV PCR is recommended. Contact Client Services. Specimen Blood Performing Organization Address City/[facility] one Number [facility] BETHANYShazia [address] [address] LABORATORIES documented in this encounter Visit Diagnoses [...]
--- OUTSIDE RECORDS SUMMARY | 2020-03-16 14:00 | XMS REPORT | Encounter Summary ---
Author Author [facility] Organization [facility] Address Unknown Phone Unavailable Care Team Providers Care Supervisor Esters And Emulsifiers Name Role Phone Ebony Sharp MD PCP Encounter Details Care Team Description Date Type Department Ebony Sharp MD [address] [facility] [address] [place], [place] [id number] Encounter for hepatitis C screening test for low risk patient; Hyperlipidemia, unspecified hyperlipidemia type; Subclinical hyperthyroidism; Type 2 diabetes mellitus with hyperglycemia, 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) 04/07/2018 Lab [facility] Primar y Care - [place] [address] [facility] [address] [place], [place] [id number] Social History Date Tobacco Use Types Packs/Day [...] C PCR Not Detected Not Detected IU/mL R [facility]ose[facility]Critical [facility] LABORATORIES Hepatitis C PCR Not Detected Not Detected LOG [facility] Log REG[facility]AL LABORATORIES Specimen Blood Performing Organization Address City/State/Zipcode Ph one Number [address] [address] LABORATORIES * Comprehensive Metabolic Panel (04/07/2018 3:03 PM CDT) Sodium 138 133 - 147 MEQ/L [facility] Potassium 4.1 3.5 - 5.3 MEQ/L [facility] Chloride 98 96 - 112 MEQ/L [facility] Carbon Dioxide 34 (H) 20 - 32 MEQ/L [facility] Anion Gap 6 5 - 17 [facility] Calcium 9.2 8.4 - 10.5 mg/dL [facility] Glucose 128 (H) 70 - 100 mg/dL [facility] Protein Total 7.8 6.0 - 8.2 g/dL [facility] Serum [facility] Albumin 4.2 3.5 - 5.0 g/dL [facility] Alkaline 88 42 - 140 IU/L [facility] Phosphatase [facility] Alanine 27Comment: ALT reference range 0 - 34 IU/L [facility] Aminotransfer changed on 03-01-2018 REGIONAL e LABORATORIES Aspartate 31 15 - 46 IU/L [facility] e LABORATORIES Bilirubin Total 0.3 0.2 - 1.3 mg/dL [facility] Blood Urea 19 7 - 26 mg/dL [facility] Nitrogen [facility] Creatinine 0.7 0.4 - 1.1 mg/dL [facility] eGFR Female AA 101 60 - 200 [facility] Comment: REGIONAL Chronic Kidney Disease less LABORATORIES than 60 mL/min/1.73 sq.m Kidney failure less than 15 mL/min/1.73 sq.m eGFR Female 84 60 - 200 [facility] Non-AA Comment: REGIONAL Chronic Kidney Disease less LABORATORIES than 60 mL/min/1.73 sq.m Kidney failure less than 15 mL/min/1.73 sq.m Specimen Blood Performing Organization Address City/State/Zipcode Ph one Number [facility] [address] [place] [address] LABORATORIES * T4 Free (04/07/2018 3:03 PM CDT) T4 Free 1.2 0.8 - 2.2 ng/dL [facility] Specimen Blood Performing Organization Address [facility] one Number [address] [address] LABORATORIES * Thyroid Stimulating Hormone (04/07/2018 3:03 PM CDT) Thyroid 0.09 (L) 0.47 - 4.68 uIU/mL [facility] Hormone LABORATORIES Specimen Blood Performing Organization Address [facility] one Number [address] [address] LABORATORIES * Hemoglobin A1C (04/07/2018 3:03 PM CDT) Pathologist [facility] Hemoglobin A1C 8.2 (H) 4.0 - 5.6 % [facility] Comment: REGIONAL Non-diabetic 4.0 - LABORATORIES 5.6 % Prediabetes 5.7 - 6.4 % Diabetes >= 6.5 % Specimen Blood Performing Organization Address [facility] one Number [address] [address] LABORATORIES * Lipid Panel (04/07/2018 3:03 PM CDT) Cholesterol 244 (H) 100 - 200 mg/dL [facility] HDL Cholesterol 59 40 - 110 mg/dL [facility] Non-HDL 185 (H) 0 - 130 mg/dL [facility] Triglycerides 142 0 - 150 mg/dL [facility] LDL Cholesterol 157 (H) 0 - 99 mg/dL [facility] Cholesterol/HDL 4.1 0.0 - 4.5 [facility] LABORATORIES Specimen Blood Performing Organization Address [facility] one Number [address] [address] LABORATORIES * Hepatitis C Antibody (04/07/2018 3:03 PM CDT) Pathologist [facility] Hepatitis C Ab Reactive (A) Non-reactive [facility] SCO Ratio 3.89Comment: S/CO ratio <10.0 [facility] may indicate a false positive REGIONAL HCV antibody, especially in LABORATORIES low risk populations. Confirmation by HCV PCR is recommended. Contact Client Services. Specimen Blood Performing Organization Address City/State/Zipcode Ph one Number [place] [phone] [place] [address] LABORATORIES documented in this encounter Visit Diagnoses [...]
--- OUTSIDE RECORDS SUMMARY | 2020-03-16 14:00 | XMS REPORT | Encounter Summary ---
Author Author [facility] Organization [facility] Address Unknown Phone Unavailable Care Team Providers Care Supervisor White Sugar Name Role Phone Ebony Sharp MD PCP Encounter Details Care Team Description Date Type Department Adelaida Olivas MD [address] [facility] [address] [place] [address] 02/18/2018 [facility] [address] [facility] [address] [place], [place] [phone] Social History Date Tobacco Use Types Packs/Day [...] Call Additional Follow-up Details: faxed completed at [id number] Additional Follow-up by: Gege Avendano on February 22, 2018 3:12 PM documented in this encounter Plan of Treatment Not on filedocumented as of this encounter Visit Diagnoses Not on filedocumented in this encounter Additional Health Concerns Last Indicated Resolved Time Infection Onset Date 08/30/2017 04/19/2018 12:13 PM CDT Influenza 08/30/2017 08/30/2019 08/30/2019 1:09 PM HOUSE BUILDER Influenza - Rule Out 08/30/2019 08/31/2019 09/17/2019 8:17 AM HOUSE BUILDER RSV 08/31/2019 documented as of this encounter
--- OUTSIDE RECORDS SUMMARY | 2020-03-16 14:00 | XMS REPORT | Encounter Summary ---
Author Author [facility] Organization [facility] Address Unknown Phone Unavailable Care Team Providers Care Credit Checker Name Role Phone Ebony Sharp MD PCP Encounter Details Care Team Description Date Type Department Adelaida Olivas MD [address] [facility] [address] [place] [address] 12/17/2017 [facility]phone [facility] [address] [facility] [address] [place], [place] [id number] Social History Date Tobacco Use Types Packs/Day [...] No one has called her. She uses [facility] [address] Call taken by: Aline Joy on December 17, 2017 3:52 PM Follow-up for Phone Call Follow-up Details: left a message sent medication to [facility] on [address] Follow-up by: Alice Mello on December 17, 2017 4:41 PM Prescriptions: TYLENOL WITH CODEINE #4 300-60 MG ORAL TABLET (ACETAMINOPHEN-CODEINE) 1-2 tabs p o q 4-6 hours prn #30 Tablet x 0 Entered by: Alice Mello Authorized by: Adelaida Olivas MD Signed by: Alice Mello on 12/17/2017 Method used: Faxed to ... [facility] (retail) [address] [place] [address] Ph: [phone] Fax: [phone] RxID: [id number] documented in this encounter Plan of Treatment Not on filedocumented as of this encounter Visit Diagnoses Not on filedocumented in this encounter Additional Health Concerns Last Indicated Resolved Time Infection Onset Date 08/30/2017 04/19/2018 12:13 PM CDT Influenza 08/30/2017 08/30/2019 08/30/2019 1:09 PM SUPPLY CHAIN TECHNICIAN Influenza - Rule Out 08/30/2019 08/31/2019 09/17/2019 8:17 AM SUPPLY CHAIN TECHNICIAN RSV 08/31/2019 documented as of this encounter
--- OUTSIDE RECORDS SUMMARY | 2020-03-16 14:00 | XMS REPORT | Encounter Summary ---
Author Author [facility] Organization [facility] Address Unknown Phone Unavailable Care Team Providers Care Panel Maker Name Role Phone Ebony Sharp MD PCP Reason for Visit * Reason Comments Follow-up eldon left ankle [id number] [phone] cajTVX: Appt. Reminder (02/08/2018 06:41 PM) Phone Call - Message Delivered (X=Answe ring Machine) Encounter Details Care Team Description Date Type Department Adelaida Olivas MD [address] [facility] [address] [place] [address] [phone] 02/10/2018 Hist-Appointmen [facility] [address] [facility] [address] [place] [address] Social History Date Tobacco Use Types Packs/Day [...]
--- OUTSIDE RECORDS SUMMARY | 2020-03-16 14:00 | XMS REPORT | Encounter Summary ---
Author Author [facility] Organization [facility] Address Unknown Phone Unavailable Care Team Providers Care Tax Associate Name Role Phone Ebony Sharp MD PCP Encounter Details Care Team Description Date Type Department Ebony Sharp MD [address] [facility] [address] [place] [address] Hyperlipidemia, unspecified hyperlipidem ia type; Type 2 diabetes mellitus with hyperglycemia, 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); Need for hepatitis C screening test; Routine adult health maintenance 01/06/2018 Lab [facility] y [facility] [address] [facility] [address] [place], [place] [id number] Social History Date Tobacco Use Types Packs/Day [...]
--- OUTSIDE RECORDS SUMMARY | 2020-03-16 14:00 | XMS REPORT | Encounter Summary ---
Author Author [facility] Organization [facility] Address Unknown Phone Unavailable Care Team Providers Care Traffic Clerk Name Role Phone Ebony Sharp MD PCP Encounter Details Care Team Description Date Type Department [place] 02/10/2018 Hist-Other [facility] [address] [place] [address] Social History Date Tobacco Use Types Packs/Day [...]
--- OUTSIDE RECORDS SUMMARY | 2020-03-16 14:00 | XMS REPORT | Encounter Summary ---
Author Author [facility] Organization [facility] Address Unknown Phone Unavailable Care Team Providers Care Manager Research Development Name Role Phone Ebony Sharp MD PCP Encounter Details Care Team Description Date Type Department Adelaida Olivas MD [address] [facility] [address] [place] [address] 12/14/2017 [facility] [address] [facility] [address] [place], [place] [phone] Social History Date Tobacco Use Types Packs/Day [...] #3. Ple ase call patient back at [phone] Call taken by: Brenda Joyner on December [...] CDT Influenza 08/30/2017 08/30/2019 08/30/2019 1:09 PM TOPSTITCHER ZIGZAG Influenza - Rule Out 08/30/2019 08/31/2019 09/17/2019 8:17 AM TOPSTITCHER ZIGZAG RSV 08/31/2019 documented as of this encounter
--- OUTSIDE RECORDS SUMMARY | 2020-03-16 14:00 | XMS REPORT | Encounter Summary ---
Author Author [facility] Organization [facility] Address Unknown Phone Unavailable Care Team Providers Care Middle [employer] Pe Teacher Name Role Phone Ebony Sharp MD PCP Reason for Visit * Reason Comments Other Encounter Details Care Team Description Date Type Department Ebony Sharp MD [address] [facility] [address] [place] [address] Other 02/17/2018 Refill [facility] Prim[facility] Care - [place] [address] [facility] [address] [place], [place] [address] Social History Date Tobacco Use Types Packs/Day [...]
--- OUTSIDE RECORDS SUMMARY | 2020-03-16 14:00 | XMS REPORT | Encounter Summary ---
Author Author [facility] Organization [facility] Address Unknown Phone Unavailable Care Team Providers Care Crossing Gateman Name Role Phone Ebony Sharp MD PCP Encounter Details Care Team Description Date Type Department Adelaida Olivas MD [address] [facility] [address] [place] [address] 03/01/2018 [facility] [address] [facility] [address] [place], [place] [phone] Social History Date Tobacco Use Types Packs/Day [...] CDT Influenza 08/30/2017 08/30/2019 08/30/2019 1:09 PM ODD BUNDLE WORKER Influenza - Rule Out 08/30/2019 08/31/2019 09/17/2019 8:17 AM ODD BUNDLE WORKER RSV 08/31/2019 documented as of this encounter
--- OUTSIDE RECORDS SUMMARY | 2020-03-16 14:00 | XMS REPORT | Encounter Summary ---
Author Author [facility] Organization [facility] Address Unknown Phone Unavailable Care Team Providers Care Grounds Crew Supervisor Name Role Phone Ebony Sharp MD PCP Encounter Details Care Team Description Date Type Department Ebony Sharp MD [address] [facility] [address] [place], [place] [phone] 12/07/2017 Documentation [facility] Primar y [facility] [address] [facility] [address] [place], [place] [address] Social History Date Tobacco Use Types Packs/Day [...]
--- OUTSIDE RECORDS SUMMARY | 2020-03-16 14:00 | XMS REPORT | Encounter Summary ---
Author Author [facility] Organization [facility] Address Unknown Phone Unavailable Care Team Providers Care Junior Sales Representative Name Role Phone Ebony Sharp MD PCP Encounter Details Care Team Description Date Type Department Adelaida Olivas MD [address] [facility] [address] [place] [address] 03/09/2018 Hist-Telephone [facility] [address] [facility] [address] [place] [address] Social History Date Tobacco Use [...] Tavarez on 03/09/2018 Method used: Electronically to [facility]* (retail) [address] [place] [address] Ph: [phone] Fax: [phone] RxID: [id number] left voicemail for patient that Rx was filled and waiting at [facility]. documented in this encounter Plan of Treatment Not on filedocumented as of this encounter Visit Diagnoses Not on filedocumented in this encounter Additional Health Concerns Last Indicated Resolved Time Infection Onset Date 08/30/2017 04/19/2018 12:13 PM CDT Influenza 08/30/2017 08/30/2019 08/30/2019 1:09 PM CLICKING MACHINE OPERATOR Influenza - Rule Out 08/30/2019 08/31/2019 09/17/2019 8:17 AM CLICKING MACHINE OPERATOR RSV 08/31/2019 documented as of this encounter
--- OUTSIDE RECORDS SUMMARY | 2020-03-16 14:00 | XMS REPORT | Encounter Summary ---
Author Author [facility] Organization [facility] Address Unknown Phone Unavailable Care Team Providers Care Mechanical Service Specialist Name Role Phone Ebony Sharp MD PCP Encounter Details Care Team Description Date Type Department Adelaida Olivas MD [address] [facility] [address] [place] [address] 03/24/2018 Hist[facility]phone [facility] [address] 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 Please call her when it [...] CDT Influenza 08/30/2017 08/30/2019 08/30/2019 1:09 PM ICE CREAM MACHINE OPERATOR Influenza - Rule Out 08/30/2019 08/31/2019 09/17/2019 8:17 AM ICE CREAM MACHINE OPERATOR RSV 08/31/2019 documented as of this encounter
--- OUTSIDE RECORDS SUMMARY | 2020-03-16 14:00 | XMS REPORT | Encounter Summary ---
Author Author [facility] Organization [facility] Address Unknown Phone Unavailable Care Team Providers Care Seed Cleaning Manager Name Role Phone Ebony Sharp MD PCP Reason for Visit * Reason Comments Cough coughing up alot of mucus, sneezing, cough is very deep sounding, coughing and mucus is causing problems with fortino thing, hasn't checked temp, sx's for 2 weeks Encounter Details Care Team Description Date Type Department Rosa, Atify, SKATESMAN [address] [facility] [address] [place] [address] Acute sinusitis, recurrence not specifie d, unspecified location (Primary Dx) 02/01/2018 Office Visit [facility] - [facility] [address] [facility] [address] [place] [address] Social History Date Tobacco Use [...] Patient Instructions * Patient Instructions* Samuel Lee, SKATESMAN - 02/01/2018 4:29 PM CDT Take doxycycline [...] towel soaked in hot lyle er. Or, office machine servicer the shower and direct the hot spray onto your face. Using a vap orizer along with a menthol rub at night may also help. Anexpectorantcontaining guaifenesin may help thin the mucus and promote d rainage from the sinuses. Vvca-dkw-cnfitiqioetmnzghjewucfm be used unless a similar medicine was [...] increased. Read labels. You can also ask [facility] pharmacist for help. (NOTE:Persons with high blood pressure should not use d econgestants. They can raise blood pressure.) Nzww-wsw-hgzbfetxmajzjxgjmuxiwbqp help if allergies contributed to your s [...] problems Symptoms not resolving within 10 days 3233-2140 The [employer]. [address] [place] [address], [place], [place] [address] 7. All rights reserved. This information is [...] towel soaked in hot lyle er. Or, office machine servicer the shower and direct the hot spray onto your face. Using a vap orizer along with a menthol rub at night may also help. Anexpectorantcontaining guaifenesin may help thin the mucus and promote d rainage from the sinuses. Lqij-vpb-hqxhozlgqbgvuspphehjsos be used unless a similar medicine was [...] increased. Read labels. You can also ask [facility] pharmacist for help. (NOTE:Persons with high blood pressure should not use d econgestants. They can raise blood pressure.) Wwwg-ppv-bsqwbmkmrtjzxmehgzulrcci help if allergies contributed to your s [...] problems Symptoms not resolving within 10 days 4951-2871 The [employer]. [address] [place] [address] 7. All rights reserved. This information is [...]
--- OUTSIDE RECORDS SUMMARY | 2020-03-16 14:01 | XMS REPORT | Encounter Summary ---
Author Author [facility] Organization [facility] Address Unknown Phone Unavailable Care Team Providers Care Livery Car Driver Name Role Phone Ebony Sharp MD PCP Encounter Details Care Team Description Date Type Department Adelaida Olivas MD [address] [facility] [address] [place], [place] [id number] 10/07/2017 Hist-Transcript [facility] En[facility] Special[facility] [address] [facility] [address] [place], [place] [id number] Social History Date Tobacco Use Types Packs/Day [...] Adelaida Olivas MD - 10/07/2017 2:14 PM TECHNICAL SERVICES SPECIALIST - History of Present Illness Patient comes [...] 1 po q daily VITAMIN D (ERGOCALCIFEROL) 69265 UNIT ORAL CAPSULE (ERGOCALCIFEROL) 1 po q [...] used: Print then Give to Patient RxID: [id number] LIDODERM 5 % EXTERNAL PATCH (LIDOCAINE) apply to painful area 12 hours on, 12 ho urs off #30 Undefined x 0 Entered by: Trevor Tillman APRN Authorized by: Adelaida Olivas MD Signed by: Trevor Tillman APRN on 10/07/2017 Method used: Print then Give to Patient RxID: [id number] Vital Signs Ht: 62 in. Wt: 236 [...] 130 Measure 109 Pain Managment Consult * NICAL SERVICES SPECIALIST documented in this encounter Plan of Treatment Not on filedocumented as of this encounter Visit Diagnoses Not on filedocumented in this encounter Additional Health Concerns Last Indicated Resolved Time Infection Onset Date 08/30/2017 04/19/2018 12:13 PM CDT Influenza 08/30/2017 08/30/2019 08/30/2019 1:09 PM TECHNICAL SERVICES SPECIALIST Influenza - Rule Out 08/30/2019 08/31/2019 09/17/2019 8:17 AM TECHNICAL SERVICES SPECIALIST RSV 08/31/2019 documented as of this encounter
--- OUTSIDE RECORDS SUMMARY | 2020-03-16 14:01 | XMS REPORT | Encounter Summary ---
Author Author [facility] Organization [facility] Address Unknown Phone Unavailable Care Team Providers Care Career Placement Services Counselor Name Role Phone Ebony Sharp MD PCP Reason for Visit * Reason Comments Other Encounter Details Care Team Description Date Type Department Ebony Sharp MD [address] [facility] [address] [place], [place] [id number] Other 11/20/2017 Refill [facility] - [facility] [address] [facility] [address] [place], [place] [address] Social History Date Tobacco Use Types Packs/Day [...] CDT Influenza 08/30/2017 08/30/2019 08/30/2019 1:09 PM RN CLINICAL RESEARCH Influenza - Rule Out 08/30/2019 08/31/2019 09/17/2019 8:17 AM RN CLINICAL RESEARCH RSV 08/31/2019 documented as of this encounter
--- OUTSIDE RECORDS SUMMARY | 2020-03-16 14:01 | XMS REPORT | Encounter Summary ---
Author Author [facility] Organization [facility] Address Unknown Phone Unavailable Care Team Providers Care Subpoena Server Name Role Phone Ebony Sharp MD PCP Reason for Visit * Reason Comments Hip Pain LEG PAIN NOTED TO RIGHT LEG SHE FELL 2 WEEKS AGO AND NOTED PAIN TO RIGHT SIDE AND DOWN RIGHT LEG FROM HIP. Encounter Details Care Team Description Date Type Department Gege Jeff MD [address] [place] [address] [phone] Pain of right hip joint (Primary Dx) 11/25/2017 Emergency [facility] [address] [place], [place] [address] Social History Date Tobacco Use Types Packs/Day [...] through Care Everywhere.* Hip, How it Works (Barbadian) * PAIN, UNCERTAIN CAUSE (ACUTE) (STATELESS) * SCIATICA (STATELESS) * R.I.C.E. (Barbadian) documented in this encounter Medications at [...] MD - 11/25/2017 10:09 PM CDT 11/25/2017 [facility] History Chief Complaint Patient presents with [...] fx. CT Lumbar Spine reconstructed (Results Pending) [facility] 2316-patient is neurovascularly intact and hemodynamically [...] are not helping. Prescriptions given for #12 [place] and motrin. Patient to follow-up with her [...] HIP JOINT Ebony Sharp MD [address] [facility] [address] [facility] [address] Schedule an appointment as soon as possible for a visit [facility] [address] [facility] [facility] [address] Schedule an appointment as soon as possible for a visit ED Clinical Impression 1. Pain of right hip joint Patient ED Dispo ED Disposition Discharge Geeg Jeff MD 11/26/17 0350 * Vashti Fritz [...] or edited the final report. READING SITE: [facility] Narrative Performed At Patient: ISIAH BENÍTEZ Sex#: F # 1950 Jose#: [id number] Location: [facility] SED[facility] Procedure Requested: [id number] US VENOU S DUPLEX LOWER EXTREMITY RIGHT [...] ISIAH BENÍTEZ Sex#: F # 1950 Jose#: [id number] Location: [facility] Procedure Requested: [id number] US VENOUS DUPLEX LOWER EXTREMITY RIGHT Reason [...] or edited the final report. READING SITE: [facility] Performing Organization Address City/State/Zipcode Ph one [...] those in the preliminary report provided by [employer]. READING SITE: [facility]. ATTESTATION STATEMENT: The Staff Radiologist has personally re viewed the images and dictated, reviewed, or edited the final report. Narrative Performed At Patient: ISIAH BENÍTEZ Sex#: F # 1950 Jose#: [id number] Location: [facility] SED-13 Procedure Requested: [id number] CT LUMBA R SPINE RECONSTRUCTED Reason for [...] CT scan done according to ALARA and [place] ge gently/image wisely. Findings: Lumbar lordosis is [...] ISIAH BENÍTEZ Sex#: F # 1950 Jose#: [id number] Location: [facility]-13 Procedure Requested: [id number] CT LUMBAR SPINE RECONSTRUCTED Reason for Exam: [...] those in the preliminary report provided by [employer]. READING SITE: [facility]. ATTESTATION STATEMENT: The Staff Radiologist has [...] the findings in this report. READING SITE: [facility] Narrative Performed At Patient: ISIAH BENÍTEZ Sex#: Paulina # 1950 Jose#: [id number] Location: [facility] SED-13 Procedure Requested: [id number] CT ABDOM EN PELVIS WO CONTRAST Reason [...] ISIAH BENÍTEZ Sex#: Paulina # 1950 Jose#: [id number] Location: [facility] SED-13 Procedure Requested: [id number] CT ABDOMEN PELVIS WO CONTRAST Reason for [...] the findings in this report. READING SITE: [facility] Performing Organization Address City/State/Zipcode Ph one Number [facility] * XR Hip 2 views with Pelvis right (11/25/2017 9:42 PM CDT) Specimen Impressions Performed At 1. No evidence of acute fracture. [facility] 2. Moderate bilateral hip osteoarthriti s. ATTESTATION STATEMENT: The Staff Radiologist has personally re viewed this study and agrees with the findings in this report. READING SITE: [facility] Narrative Performed At Patient: ISIAH BENÍTEZ Sex#: F # 1950 Jose#: [id number] Location: [facility]13 Procedure Requested: [id number] XR HIP 2 VIEWS WITH PELVIS RIGHT [...] ISIAH BENÍTEZ Sex#: F # 1950 Jose#: [id number] Location: [facility] SED-13 Procedure Requested: [id number] XR HIP 2 VIEWS WITH PELVIS RIGHT [...] the findings in this report. READING SITE: [facility] Organization Address City/State/Zipcode Ph one Number [facility] documented in this encounter Visit Diagnoses [...]
--- OUTSIDE RECORDS SUMMARY | 2020-03-16 14:01 | XMS REPORT | Encounter Summary ---
Author Author [facility] Organization [facility] Address Unknown Phone Unavailable Care Team Providers Care Neurocritical Care Physician Name Role Phone Ebony Sharp MD PCP Reason for Visit * Reason Comments Dental Pain broke tooth wednesday night wh ile in ER SLE, being treated for flu A, doesn't have a dentist Encounter Details Care Team Description Date Type Department Francoise Baker NP [address] [place], [place] [address] Dental infection (Primary Dx) 09/02/2017 Office Visit [facility] [address] [facility] [address] [place], [place] [address] Social History Date Tobacco Use Types Packs/Day [...] Francoise Baker NP - 09/02/2017 9:01 AM BRIM POUNCER MACHINE OPERATOR Dental Abscess An abscess is a pocket [...] can buy oil of cloves a t [employer]. Some pharmacies carry an htos-dxb-ffwwfbs "toothache kit." This co ntains a paste [...] from the tooth Difficulty swallowing or breathing 2498-11[address] The [employer] [place] [address], [place], [place] [address] 7. All rights reserved. This information is not intended as a substitute for pro fessional medical care. Always follow your healthcare professional's instruction s. POUNCER MACHINE OPERATOR documented in this encounter Progress Notes * Francoise Baker NP - 09/02/2017 8:40 AM BRIM POUNCER MACHINE OPERATOR Patient ID: Caren Patten is a 67 [...] in nightly. 10 mL 0 insulin syringe (Povio ULTRA-FINE) 0.3 mL 31 gauge x 5/16 [...] Re ctal Q6H PRN Lilibeth Redmond RN LEATHER NOVELTY PARTS CUTTER [DISCONTINUED] acetaminophen (TYLENOL) tablet 325-650 mg 325-650 mg Oral Q6 H PRN Lilibeth Redmond RN LEATHER NOVELTY PARTS CUTTER [DISCONTINUED] aluminum-magnesium hydroxide-simethicone (MAALOX PLUS) 400-40 0-40 mg/5 mL suspension 15 mL 15 mL Oral Q4H PRN Lilibeth Redmond RN LEATHER NOVELTY [employer]S CUTTER [DISCONTINUED] amitriptyline (ELAVIL) tablet 25 mg 25 mg Oral Nightly Fiorella Redmond RN LEATHER [employer]OVELTY [employer]S CUTTER 25 mg at 08/31/17 2134 [DISCONTINUED] amLODIPine (NORVASC) tablet 5 mg 5 mg Oral Daily Lilibeth sin RN LEATHER NOVELTY [employer]S CUTTER 5 mg at 09/01/17 0850 [DISCONTINUED] benzocaine-menthol (CEPACOL) lozenge 1 lozenge 1 lozenge Buc rosalind Q1H PRN Lilibeth Redmond RN LEATHER [employer]EL[employer]S CUTTER [DISCONTINUED] benzonatate (TESSALON) capsule 100 mg 100 mg Oral TID PRN Ashley Redmond RN LEATHER NOVELTY [employer]S CUTTER 100 mg at 08/31/17 0358 [DISCONTINUED] bisacodyl (DULCOLAX) suppository 10 mg 10 mg Rectal Daily UT N Lilibeth Redomnd RN LEATHER NOVELTY [employer]S CUTTER [DISCONTINUED] celecoxib (CeleBREX) capsule 200 mg 200 mg Oral Daily Santa Julian MD 200 mg at 09/01/17 0850 [DISCONTINUED] citalopram (CeleXA) tablet 20 mg 20 mg Oral Daily Lilibeth lucas RN LEATHER [employer]ELTY [employer]S CUTTER 20 mg at 09/01/17 0850 [DISCONTINUED] dextrose 10% (D10W) bolus 125-250 mL 125-250 mL Intravenous PRN Lilibeth Redmond RN LEATHER [employer]EL[employer] CUTTER [DISCONTINUED] dextrose 50% (D50W) 50 % injection 25-50 mL 25-50 mL Intrave nous PRN Lilibeth Redmond RN LEATHER [employer]ELTY [employer]S CUTTER [DISCONTINUED] dextrose 50% (D50W) syringe 25-50 mL 25-50 mL Intravenous UT N Lilibeth Redmond RN LEATHER NOVELTY [employer]S CUTTER [DISCONTINUED] docusate sodium (COLACE) capsule 100 mg 100 mg Oral BID PRN Lilibeth Redmond RN LEATHER [employer]ELTY [employer]S CUTTER [DISCONTINUED] fluticasone-vilanterol (BREO ELLIPTA) 200-25 mcg/actuation in haler 1 puff 1 puff Inhalation Daily Lilibeth Redmond RN LEATHER N[employer]EL[employer]S CUTTER Stopped at 06/09 0900 [DISCONTINUED] gabapentin (NEURONTIN) capsule 300 mg 300 mg Oral TID Lilibeth Redmond RN LEATHER NOVELTY [employer]S CUTTER 300 mg at 09/01/17 0850 [DISCONTINUED] glucagon (GLUCAGEN) injection 1 mg 1 mg Intramuscular PRN Ramirez sana Redmond RN LEATHER [employer]OVELTY [employer]S CUTTER [DISCONTINUED] glucagon (GLUCAGEN) injection 1 mg 1 mg Subcutaneous PRN Antoinette Redmond RN LEATHER NOVELTY [employer]S CUTTER [DISCONTINUED] guaiFENesin (MUCINEX) 12 hr tablet 1,200 mg 1,200 mg Oral BI D Lilibeth Redmond RN LEATHER NOVELTY [employer]S CUTTER 1,200 mg at 09/01/17 0850 [DISCONTINUED] heparin (porcine) 5,000 unit/mL injection 5,000 Units 5,000 Units Subcutaneous Q8H Lilibeth Redmond RN LEATHER NOVELTY PARTS CUTTER 5,000 Units at 09/01/17 0545 [DISCONTINUED] insulin [...] mL Inhalation 4x daily Lilibeth Redmond RN LEATHER NOVELTY PARTS CUTTER Stopped at 1600 [DISCONTINUED] ipratropium-albuterol (DUO-NEB) 0.5-3 mg/3 mL nebulizer solut ion 3 mL 3 mL Inhalation PRN Preethi Zavala MD 3 mL at 08/31/17 0432 [DISCONTINUED] metaxalone (SKELAXIN) tablet 800 mg 800 mg Oral Nightly Baltazar Redmond RN LEATHER [employer]ELTY [employer]S CUTTER 800 mg at 08/31/173 [DISCONTINUED] metoprolol tartrate (LOPRESSOR) tablet 100 mg 100 mg Oral BI D Lilibeth Redmond RN LEATHER NOVELTY PARTS CUTTER 100 mg at 09/01/17 0849 [DISCONTINUED] miconazole nitrate (ALOE VESTA) 2 % ointment Topical TID UT N Lilibeth Redmond RN LEATHER NOVELTY [employer]S CUTTER [DISCONTINUED] ondansetron (ZOFRAN) injection 4 mg 4 mg Intravenous Q6H PRN Omar Vásquez MD [DISCONTINUED] oseltamivir (TAMIFLU) capsule 75 mg 75 mg Oral BID Ralf borden MD 75 mg at 09/01/17 0850 [DISCONTINUED] polyethylene glycol (GLYCOLAX) packet 17 g 17 g Oral Daily P ADAM Redmond RN LEATHER NOVELTY [employer]S CUTTER [DISCONTINUED] pravastatin (PRAVACHOL) tablet 40 mg 40 mg Oral Nightly Baltazar Redmond RN LEATHER NOVELTY [employer]S CUTTER 40 mg at 08/31/173 [DISCONTINUED] predniSONE (DELTASONE) [...] E ach Nare PRN Lilibeth Redmond RN LEATHER NOVELTY PARTS CUTTER [DISCONTINUED] traMADol (ULTRAM) tablet 50 mg 50 [...] WITH REVISION LEFT ANKLE ARTHRODESIS; Surgeon: Adelaida Oilvas MD; Location: [facility] [...] can buy oil of cloves a t [employer]orGoood[employer]. Some pharmacies carry an wssr-vqh-qqrhdpo "toothache kit." This co ntains a paste [...] from the tooth Difficulty swallowing or breathing 2597-[address] [employer] [place] [address] 7. All rights reserved. This information is not intended as a substitute for pro fessional medical care. Always follow your healthcare professional's instruction s. POUNCER MACHINE OPERATOR documented in this encounter Plan of Treatment Not on filedocumented as of this encounter Visit Diagnoses Diagnosis Dental infection documented in this encounter Additional Health Concerns Last Indicated Resolved Time Infection Onset Date 08/30/2017 04/19/2018 12:13 PM CDT Influenza 08/30/2017 documented as of this encounter
--- OUTSIDE RECORDS SUMMARY | 2020-03-16 14:01 | XMS REPORT | Encounter Summary ---
Author Author [facility] Organization [facility] Address Unknown Phone Unavailable Care Team Providers Care Filter Tank Tender Name Role Phone Ebony Sharp MD PCP Reason for Visit * Reason Comments Follow-up Margot left ankle - LS. NA 0 10/07/17TVX: Appt. Reminder (11/16/2017 06:42 PM) Phone Call - Message Delivered (X=Answe ring Machine) Encounter Details Care Team Description Date Type Department Adelaida Olivas MD [address] [facility] [address] [place] [address] [phone] 11/18/2017 Hist-Appointmen [facility]ists [address] [facility] [address] [place] [address] Social History Date Tobacco Use Types Packs/Day [...]
--- OUTSIDE RECORDS SUMMARY | 2020-03-16 14:01 | XMS REPORT | Encounter Summary ---
Author Author [facility] Organization [facility] Address Unknown Phone Unavailable Care Team Providers Care Food Production Supervisor Name Role Phone Ebony Sharp MD PCP Reason for Visit * Reason Comments Shortness of Breath Increased shortness of air over the last two weeks. Chest pain, sweating, and nausea today. Encounter Details Care Team Description Date Type Department Gladis Arteaga MD [address] [facility] [address] [place], [place] [id number] Dyspnea, unspecified type (Primary Dx); Chronic obstructive pulmonary disease, unspecified COPD type (HCC) 11/18/2017 Emergency [facility] [address] [place], [place] [id number] Social History Date Tobacco Use Types Packs/Day [...] Chronic Obstructive Pulmonary Disease (COPD), Discharge Instructions (Chilean) documented in this encounter Medications at Time [...] MD - 11/18/2017 3:58 PM CDT 11/18/2017 [facility] History Chief Complaint [...] ED Disposition Discharge Gladis Arteaga MD 11/18/17 6994 documented in this encounter Plan of Treatment [...] SIMSCadence Comment: ALBERT AGUSTIN NT-proBNP Reference Ranges: [facility] <50 yr <450 pg/mL 50-75 yr <900 pg/mL >75 yr <1800 pg/mL A cutoff value of 1200 pg/mL is recommended in patients 50 to 70 years of age with a GFR between 30 and 60. NT-proBNP is unreliable in patients with GFR <30. Specimen Blood Performing Organization Address City/State/Zipcode Ph one Number [facility] [address] [facility] [address] [place], [place] [address] [facility] [address] [place] [facility] [place] [address], [place] [phone] [facility] * Troponin 0 hr (11/18/2017 4:25 PM CDT) [facility] Troponin <0.01 0.00 - 0.03 ng/mL [facility] Comment: [facility] Troponin Value [facility] Interpretation 0.00 - 0.03 Healthy 0.04 - 0.12 Increased Cardiac Risk >0.12 Myocardial Infarction Troponin may not become elevated until 6 to 8 hours after onset of symptoms. Specimen Blood Performing Organization Address City/State/Zipcode Ph one Number [facility] [address] [facility] [place] [address] [facility] [address] [facility] [facility] [place] [address], [facility] * CBC and Diff (manual diff if necessary) (11/18/2017 4:25 PM CDT) [facility] WBC 8.81 4.00 - 11.00 TH/uL [facility] [...] LAB %Lymphocytes 32 15 - 47 % [facility] %Monocytes 8 0 - 12 % [facility] %Eosinophils 4 0 - 7 % [facility] %Basophils 1 0 - 2 % [facility] # Granulocytes 4.85 1.7 - 6.8 TH/uL [facility] # Lymphocytes 2.83 1.0 - 3.3 TH/uL [facility] # Monocytes 0.71 0.2 - 0.9 TH/uL [facility] # Eosinophils 0.37 0.0 - 0.4 TH/uL [facility] # Basophils 0.05 0.0 - 0.1 TH/uL [facility] Specimen Blood Performing Organization Address City/State/Zipcode Ph one Number [facility] [address] [facility], [place] [phone] [facility] [address] [place] [address], [facility] * Comprehensive Metabolic Panel (11/18/2017 4:25 PM CDT) [facility] Sodium 142 133 - 147 MEQ/L [facility] Potassium 4.4 3.5 - 5.3 MEQ/L [facility] Chloride 103 96 - 112 MEQ/L [facility] Carbon Dioxide 29 20 - 32 MEQ[facility]L [facility] Anion Gap 11 5 - 17 [facility] Calcium 9.7 8.4 - 10.5 mg/dL [facility] Glucose 157 (H) 70 - [...] Female AA 101 60 - 200 [facility] Comment: [facility] Chronic Kidney Disease less [...] [facility] [address] [place] [address] [facility] [address] [facility] [place] [address], [facility] * XR Chest single view frontal (11/18/2017 4:14 PM CDT) Specimen Impressions Performed At Stable left mid lung subsegmental atelectasis or line ar fibrosis. No new MCKESSON consolidation. ATTESTATION STATEMENT: The Staff Radiologist has personally re viewed the images and dictated, reviewed, or edited the final report. READING SITE: [facility] Narrative Performed At Patient: ISIAH BENÍTEZ Sex#: F # 1950 Jose#: [id number] Location: [facility] SED- Procedure Requested: [id number] XR CHEST SINGLE VIEW FRONTAL Reason for [...] ISIAH BENÍTEZ Sex#: F # 1950 Jose#: [id number] Location: [place] [address] Procedure Requested: [id number] XR CHEST SINGLE VIEW FRONTAL Reason for [...] or edited the final report. READING SITE: [facility] Performing Organization Address City/State/Zipcode Ph one Number [facility] * Electrocardiogram (ECG) (11/18/2017 3:32 PM CDT) Specimen Narrative Performed At [facility] Test Date: 2017-11-18 Pat Name: ISIAH JACKELIN Department: ERS Room: Gender: Female Manager [address]: [id number] : 1950 Requested By: JANICE MORELAND Order Number: [id number] Reading MD: Measurements Intervals Duke Rate: 77 P: 63 AR: 156 QRS: 65 QRSD: 104 T: 53 QT: 404 QTc: 458 Interpretive Statements SINUS RHYTHM Procedure Note Interface, External Ris In - 11/18/2017 3:33 PM CDT [facility] Test Date: 2017-11-18 Pat Name: ISIAH BENÍTEZ Department: ERS Room: Gender: Female Manager [address]: [id number] : 1950 Requested By: JANICE MROELAND Order Number: [id number] Reading MD: Measurements Intervals Duke Rate: 77 P: 63 AR: 156 QRS: 65 QRSD: 104 T: 53 QT: 404 QTc: 458 Interpretive Statements SINUS RHYTHM Performing Organization Address City/State/Zipcoor Ph one Number ANDREW documented in this [...] , For 1 dose, If not given/taken STAFF ATTORNEY and chart., documented in this encounter Additional Health Concerns Last Indicated Resolved Time Infection Onset Date 08/30/2017 04/19/2018 12:13 PM CDT Influenza 08/30/2017 documented as of this encounter
--- OUTSIDE RECORDS SUMMARY | 2020-03-16 14:01 | XMS REPORT | Encounter Summary ---
Author Author [facility] Organization [facility] Address Unknown Phone Unavailable Care Team Providers Care Hand Collator Name Role Phone Ebony Sharp MD PCP Encounter Details Care Team Description Date Type Department Adelaida Olivas MD [address] [facility] [address] [place], [place] [address] 11/18/2017 Hist-Transcript Aide Orthopaedi c ion Encounter Specialists [address] [facility] [address] [place], [place] [address] Social History Date Tobacco Use Types Packs/Day [...] is otherwise intact. Impression CHRONIC PAIN SYNDROME (FBV67-N25.4) LEFT ANKLE PAIN (PGY13-W35.572) Pain, status post tibiotalar fusion. Plan At [...] 1 po q daily VITAMIN D (ERGOCALCIFEROL) 87941 UNIT ORAL CAPSULE (ERGOCALCIFEROL) 1 po q [...] on 11/18/2017 Method used: Faxed to ... [facility]* (retail) [address] [place] [address] Ph: [phone] Fax: [phone] RxID: [id number] TYLENOL WITH CODEINE #4 300-60 MG TABS (ACETAMINOPHEN-CODEINE) 1-2 PO Q 4-6 hour s PRN Pain #90[Unspecified] x 0 Entered and Authorized by: Adelaida Olivas MD Signed by: Adelaida Olivas MD on 11/18/2017 Method used: Electronically to [facility]* (retail) [address] [place] [address] Ph: [phone] Fax: [phone] RxID: [id number] Vital Signs Radiographs: X-ray examination, AP, lateral, [...] CDT Influenza 08/30/2017 08/30/2019 08/30/2019 1:09 PM PRESIDENT FINANCIAL INSTITUTION Influenza - Rule Out 08/30/2019 08/31/2019 09/17/2019 8:17 AM PRESIDENT FINANCIAL INSTITUTION RSV 08/31/2019 documented as of this encounter
--- OUTSIDE RECORDS SUMMARY | 2020-03-16 14:01 | XMS REPORT | Encounter Summary ---
Author Author [facility] Organization [facility] Address Unknown Phone Unavailable Care Team Providers Care Boring Machine Operator Horizontal Name Role Phone Ebony Sharp MD PCP Encounter Details Care Team Description Date Type Department Adelaida Olivas MD [address] [facility] [address] [place], [place] [id number] Left ankle pain 10/07/2017 Imaging [facility] Radiol ogy Appointment [address] [place] [address] Social History Date Tobacco Use [...] Routine 10/07/2017 Left ankle pain 2:27 PM ROUTE RETURNER documented in this encounter Results * XR Ankle min 3 views left (10/07/2017 2:27 PM ROUTE RETURNER) Specimen Impressions Performed At Status post tibiotalar arthrodesis. Alignment remains [place] unchanged. Compression screw and sidepl ate with screws are unchanged in position. Narrative Performed At Patient: ISIAH BENÍTEZ Sex#: F # [id number] Jose#: [id number] Location: XR Procedure Requested: [id number] XR ANKLE MIN 3 VIEWS LEFT Reason for Exam: Left ankle pain Exam Ordered: 10/07/2017 14 17 Exam Date/Time: 10/07/2017 142 7 Begin exam date/time: 10/07/2017 141 7 Reading Site: [facility] Exam: XR ANKLE MIN 3 VIEWS LEFT, [...] Rad Results In - 10/07/2017 4:36 PM ROUTE RETURNER Patient: ISIAH BENÍTEZ Sex#: Paulina # 1950 Jose#: [id number] Location: XR Procedure Requested: [id number] XR ANKLE MIN 3 VIEWS LEFT Reason for Exam: Left ankle pain Exam Ordered: 10/07/2017 1417 Exam Date/Time: 10/07/2017 1427 Begin exam date/time: 10/07/2017 1417 Reading Site: [facility] Exam: XR ANKLE MIN 3 VIEWS LEFT, [...]
--- OUTSIDE RECORDS SUMMARY | 2020-03-16 14:01 | XMS REPORT | Encounter Summary ---
Author Author [facility] Organization [facility] Address Unknown Phone Unavailable Care Team Providers Care Toll Collector Supervisor Name Role Phone Ebony Sharp MD PCP Encounter Details Care Team Description Date Type Department Adelaida Olivas MD [address] [facility] [address] [place] [address] 09/09/2017 [facility] [address] [facility] [address] [place], [place] [address] Social History Date Tobacco Use Types Packs/Day [...] Adelaida Olivas MD - 09/09/2017 4:04 PM BONE CRUSHER Prescriptions: CELEBREX 200 MG ORAL CAPSULE (CELECOXIB) 1 pill Daily with food #30[Capsule] x 0 Entered by: Aline Joy Authorized by: Adelaida Olivas MD Signed by: Aline Joy on 09/09/2017 Method used: Electronically to [facility]* (retail) [address] [place] [address] Ph: [phone] Fax: [phone] RxID: [id number] Resend from failed escript request. -Aline Joy, September 09, 2017 4:05 PM CRUSHER documented in this encounter Plan of Treatment Not on filedocumented as of this encounter Visit Diagnoses Not on filedocumented in this encounter Additional Health Concerns Last Indicated Resolved Time Infection Onset Date 08/30/2017 04/19/2018 12:13 PM CDT Influenza 08/30/2017 08/30/2019 08/30/2019 1:09 PM BONE CRUSHER Influenza - Rule Out 08/30/2019 08/31/2019 09/17/2019 8:17 AM BONE CRUSHER RSV 08/31/2019 documented as of this encounter
--- OUTSIDE RECORDS SUMMARY | 2020-03-16 14:01 | XMS REPORT | Encounter Summary ---
Author Author [facility] Organization [facility] Address Unknown Phone Unavailable Care Team Providers Care Underground Mine Superintendent Name Role Phone Ebony Sharp MD PCP Reason for Visit * Reason Comments Follow-up eldon/ left ankle/ [id number] kk a LM to notify of BS location Encounter Details Care Team Description Date Type Department Adelaida Olivas MD [address] [facility] [address] [place], [place] [address] 10/07/2017 Hist-Appointmen Aide Orthopaedi c t Specialists [address] [facility] [address] [place], [place] [id number] Social History Date Tobacco Use Types Packs/Day [...]
--- OUTSIDE RECORDS SUMMARY | 2020-03-16 14:01 | XMS REPORT | Encounter Summary ---
Author Author [facility] Organization [facility] Address Unknown Phone Unavailable Care Team Providers Care Regulatory Submissions Associate Name Role Phone Ebony Sharp MD PCP Encounter Details Care Team Description Date Type Department Ebony Sharp MD [address] [facility] [address] [place] [address] 09/03/2017 Telephone [facility] [address] [facility] [address] [facility] [address] [place] [address] Social History Date Tobacco Use [...] Sheryl Joaquin MA - 09/03/2017 9:29 AM .NET ARCHITECT Spoke with Patient and told her cyclobenzaprine was denied. Told her we could se nd it to [facility] since its on the $4.00 lists and patient declined stating she's not going to take it anymore. I told her if she changes her mind to please let us know and we can send it to [facility]. Patient say OK .NET ARCHITECT documented in this encounter Plan of Treatment Not on filedocumented as of this encounter Visit Diagnoses Not on filedocumented in this encounter Additional Health Concerns Last Indicated Resolved Time Infection Onset Date 08/30/2017 04/19/2018 12:13 PM CDT Influenza 08/30/2017 documented as of this encounter
--- OUTSIDE RECORDS SUMMARY | 2020-03-16 14:01 | XMS REPORT | Encounter Summary ---
Author Author [facility] Organization [facility] Address Unknown Phone Unavailable Care Team Providers Care Filenet Admin Name Role Phone Ebony Sharp MD PCP Reason for Visit * Reason Comments Other Encounter Details Care Team Description Date Type Department Ebony Sharp MD [address] [facility] [address] [place], [place] [address] Other 09/20/2017 Refill [facility] Primar y Care - East [address] [facility] [address] [place], [place] [address] Social History Date Tobacco Use Types Packs/Day [...]
--- OUTSIDE RECORDS SUMMARY | 2020-03-16 14:01 | XMS REPORT | Encounter Summary ---
Author Author [facility] Organization [facility] Address Unknown Phone Unavailable Care Team Providers Care Detector Car Operator Name Role Phone Ebony Sharp MD PCP Encounter Details Care Team Description Date Type Department Adelaida Olivas MD [address] [facility] [address] [place] [address] 10/14/2017 [facility] [address] [facility] [address] [place], [place] [address] Social History Date Tobacco Use Types Packs/Day [...] Adelaida Olivas MD - 10/14/2017 9:03 AM ASSOCIATE VETERINARIAN Phone Note Call from Pharmacy Summary of call: [facility] [phone], would like a clarification on the script for lidoderm patch. Call taken by: Lilian Greenwood on October 14, 2017 9:04 AM Follow-up for Phone Call Follow-up Details: I spoke with the staff of [facility] and they stated the lidoderm pa tches needed prior auth. PA information submitted on covermymeds Follow-up by: Rg Lopez on October 14, 2017 11:02 AM Additional Follow-up for Phone Call Additional Follow-up Details: Patient was seen in office today. Additional Follow-up by: Rg Lopez on October 25, 2017 1:23 PM CIATE VETERINARIAN documented in this encounter Plan of Treatment Not on filedocumented as of this encounter Visit Diagnoses Not on filedocumented in this encounter Additional Health Concerns Last Indicated Resolved Time Infection Onset Date 08/30/2017 04/19/2018 12:13 PM CDT Influenza 08/30/2017 08/30/2019 08/30/2019 1:09 PM ASSOCIATE VETERINARIAN Influenza - Rule Out 08/30/2019 08/31/2019 09/17/2019 8:17 AM ASSOCIATE VETERINARIAN RSV 08/31/2019 documented as of this encounter
--- OUTSIDE RECORDS SUMMARY | 2020-03-16 14:01 | XMS REPORT | Encounter Summary ---
Author Author [facility] Organization [facility] Address Unknown Phone Unavailable Care Team Providers Care Drafter Plumbing Name Role Phone Ebony Sharp MD PCP Encounter Details Care Team Description Date Type Department Adelaida Olivas MD [address] [facility] [address] [place], [place] [address] 10/25/2017 Hist-Transcript [employer] Orthopaedi c ion Encounter Specialists [address] [facility] [address] [place], [place] [address] Social History Date Tobacco Use Types Packs/Day [...] Adelaida Olivas MD - 10/25/2017 1:16 PM PROJECT SPECIALIST - History of Present Illness Presents today [...] wound heali ng. 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 Plan At [...] 1 po q daily VITAMIN D (ERGOCALCIFEROL) 60433 UNIT ORAL CAPSULE (ERGOCALCIFEROL) 1 po q [...] used: Print then Give to Patient RxID: [id number] SKELAXIN 800 MG ORAL TABLET (METAXALONE) one, po, at bedtime as needed for muscl e spasm #90 x 0 Entered by: Rg Lopez Authorized by: Adelaida Olivas MD Signed by: Rg Lopez on 10/25/2017 Method used: Print then Give to Patient RxID: [id number] NORCO 5-325 MG TABS (HYDROCODONE-ACETAMINOPHEN) 4 tablets daily PO #120 Undefin e x 0 Entered by: Sharona Scott Authorized by: Adelaida Olivas MD Signed by: Sharona Scott on 10/25/2017 Method used: Print then Give to Patient RxID: [id number] SKELAXIN 800 MG ORAL TABLET (METAXALONE) one, po, at bedtime as needed for muscl e spasm #90 x 0 Entered by: Sharona Scott Authorized by: Adelaida Olivas MD Signed by: Sharona Scott on 10/25/2017 Method used: Print then Give to Patient RxID: [id number] NORCO 5-325 MG TABS (HYDROCODONE-ACETAMINOPHEN) 4 tablets daily PO #120 Undefin e x 0 Entered by: Sharona Scott Authorized by: Adelaida Olivas MD Signed by: Sharona Scott on 10/25/2017 Method used: Print then Give to Patient RxID: [id number] SKELAXIN 800 MG ORAL TABLET (METAXALONE) one, po, at bedtime as needed for muscl e spasm #90 x 0 Entered by: Sharona Scott Authorized by: Adelaida Olivas MD Signed by: Sharona Scott on 10/25/2017 Method used: Print then Give to Patient RxID: [id number] NORCO 5-325 MG TABS (HYDROCODONE-ACETAMINOPHEN) 4 tablets daily PO #120 Undefin e x 0 Entered by: Sharona Scott Authorized by: Adelaida Olivas MD Signed by: Sharona Scott on 10/25/2017 Method used: Print then Give to Patient RxID: [id number] Vital Signs Ht: 62 in. Wt: 236 [...] CDT Influenza 08/30/2017 08/30/2019 08/30/2019 1:09 PM PROJECT SPECIALIST Influenza - Rule Out 08/30/2019 08/31/2019 09/17/2019 8:17 AM PROJECT SPECIALIST RSV 08/31/2019 documented as of this encounter
--- OUTSIDE RECORDS SUMMARY | 2020-03-16 14:01 | XMS REPORT | Encounter Summary ---
Author Author [facility] Organization [facility] Address Unknown Phone Unavailable Care Team Providers Care Mounter Smoking Pipe Name Role Phone Ebony Sharp MD PCP Encounter Details Care Team Description Date Type Department [place], [facility] 10/25/2017 Hist-Other [facility] [address] [place] [address] Social History Date Tobacco Use Types Packs/Day [...] XR ANKLE LEFT Routine 10/25/2017 1:35 PM TRANSIT MECHANIC documented in this encounter Results * XR Ankle left (10/25/2017 1:35 PM TRANSIT MECHANIC) Specimen Performing Organization Address City/State/Zipcode Ph one Number [place] documented in this encounter Visit Diagnoses Not on filedocumented in this encounter Additional Health Concerns Last Indicated Resolved Time Infection Onset Date 08/30/2017 04/19/2018 12:13 PM CDT Influenza 08/30/2017 documented as of this encounter
--- OUTSIDE RECORDS SUMMARY | 2020-03-16 14:01 | XMS REPORT | Encounter Summary ---
Author Author [facility] Organization [facility] Address Unknown Phone Unavailable Care Team Providers Care Lease Purchase Truck Driver Name Role Phone Ebony Sharp MD PCP Encounter Details Care Team Description Date Type Department Ebony Sharp MD [address] [facility] [address] [place], [place] [address] 09/07/[address] [facility] Primar y [facility] [address] [facility] [address] [place], [place] [address] Social History Date Tobacco Use Types Packs/Day [...]
--- OUTSIDE RECORDS SUMMARY | 2020-03-16 14:01 | XMS REPORT | Encounter Summary ---
Author Author [facility] Organization [facility] Address Unknown Phone Unavailable Care Team Providers Care Cutter Barrel Drum Name Role Phone Ebony Sharp MD PCP Reason for Visit * Reason Comments Follow-up Margot left ankle, she had a fall on 10/16/17 and reinjured the ankle she had surgery on 10/22/17 lds Encounter Details Care Team Description Date Type Department Adelaida Olivas MD [address] [facility] [address] [place], [place] [address] 10/25/2017 Hist-Appointmen Aide Orthopaedi c t Specialists [address] [facility] [address] [place], [place] [address] Social History Date Tobacco Use Types Packs/Day [...]
--- OUTSIDE RECORDS SUMMARY | 2020-03-16 14:01 | XMS REPORT | Encounter Summary ---
Author Author [facility] Organization [facility] Address Unknown Phone Unavailable Care Team Providers Care Dewaterer Operator Name Role Phone Ebony Sharp MD PCP Encounter Details Care Team Description Date Type Department Adelaida Olivas MD [address] [facility] [address] [place] [address] 11/16/2017 [facility] [address] [facility] [address] [place], [place] [address] Social History Date Tobacco Use Types Packs/Day [...] script voicemail requesting refill of h ydrocodone. [phone] Call taken by: Kate Washington on November [...] CDT Influenza 08/30/2017 08/30/2019 08/30/2019 1:09 PM AIRPLANE COVERER Influenza - Rule Out 08/30/2019 08/31/2019 09/17/2019 8:17 AM AIRPLANE COVERER RSV 08/31/2019 documented as of this encounter
--- OUTSIDE RECORDS SUMMARY | 2020-03-16 14:01 | XMS REPORT | Encounter Summary ---
Author Author [facility] Organization [facility] Address Unknown Phone Unavailable Care Team Providers Care Ticket Clerk Name Role Phone Ebony Sharp MD PCP Encounter Details Care Team Description Date Type Department [place], [facility] 11/18/2017 Hist-Other [facility] [address] [place] [address] Social History Date Tobacco Use Types Packs/Day [...]
--- OUTSIDE RECORDS SUMMARY | 2020-03-16 14:02 | XMS REPORT | Encounter Summary ---
Author Author [facility] Organization [facility] Address Unknown Phone Unavailable Care Team Providers Care Food And Drink Factory Workers Name Role Phone Ebony Sharp MD PCP Reason for Visit * Reason Comments Medication Refill Encounter Details Care Team Description Date Type Department Jennifer Feng RN Medication Refill 08/26/2017 Refill [facility] Primar y Care - East [address] [facility] [address] [place], [place] [address] Social History Date Tobacco Use Types Packs/Day [...] Jennifer Feng RN - 08/26/2017 10:53 AM AERIAL PLANTING AND CULTIVATION MANAGER Last seen on 07/09/17. Refills requested for new pharm (these are only the ones our office has specifically refilled in Mar). Questioning if flexeril should be continued. Please advise. Thank you. AL PLANTING AND CULTIVATION MANAGER documented in this encounter Plan of Treatment Not on filedocumented as of this encounter Visit Diagnoses Not on filedocumented in this encounter Additional Health Concerns Last Indicated Resolved Time Infection Onset Date 08/30/2017 04/19/2018 12:13 PM CDT Influenza 08/30/2017 documented as of this encounter
--- OUTSIDE RECORDS SUMMARY | 2020-03-16 14:02 | XMS REPORT | Encounter Summary ---
Author Author [facility] Organization [facility] Address Unknown Phone Unavailable Care Team Providers Care Digital Media Coordinator Name Role Phone Ebony Sharp MD PCP Reason for Referral * MRI/CAT/PET Scan (Routine) Referred By Contact Referred To Contact Status Reason Specialty Diagnoses / Procedures Adelaida Olivas MD [address] [facility] [address] [place] [address] [place] [address] Closed Radiology Diagnoses Left ankle pain Ankle joint contracture, 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 P rocedures CT Ankle wo contrast left Reason for Visit * MRI/CAT/PET Scan (Routine) Referred By Contact Referred To Contact Status Reason Specialty Diagnoses / Procedures Adelaida Olivas MD [address] [facility] [address] [place] [address] [place] [address] Closed Radiology Diagnoses Left ankle pain Ankle joint contracture, 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 P rocedures CT Ankle wo contrast left Encounter Details Care Team Description Date Type Department Adelaida Olivas MD [address] [facility] [address] [place] [address] [phone] Left ankle pain; Ankle joint contracture, left; Pseudarthrosis after fusion or arthrodesis 08/13/2017 [facility] [address] [facility] [place] [address] Social History Date Tobacco Use Types Packs/Day [...] Routine 08/13/2017 Left ankle pain 2:16 PM APIGEE DEVELOPER Ankle joint contracture, 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 documented in this encounter Results * CT Ankle wo contrast left (08/13/2017 2:16 PM APIGEE DEVELOPER) Specimen Impressions Performed At 1. Status post [...] this noncontrast enhanced study. READING SITE: [facility] Imaging Narrative Performed At Patient: ISIAH BENÍTEZ Sex#: F # [id number] Jose#: [id number] Location: [facility] CT Procedure Requested: [id number] CT ANKLE WO CONTRAST LEFT Reason for [...] Rad Results In - 08/13/2017 3:18 PM APIGEE DEVELOPER Patient: ISIAH BENÍTEZ Sex#: Paulina # 1950 Jose#: [id number] Location: [facility] CT Procedure Requested: [id number] CT ANKLE WO CONTRAST LEFT Reason for [...] this noncontrast enhanced study. READING SITE: [facility] Imaging Performing Organization Address City/State/Zipcode Ph one Number LEVI documented in this encounter Visit Diagnoses Diagnosis Left ankle pain Pain in joint, ankle and foot Ankle joint contracture, left Pseudarthrosis after fusion or arthrode sis Arthrodesis status documented in this encounter
--- OUTSIDE RECORDS SUMMARY | 2020-03-16 14:02 | XMS REPORT | Encounter Summary ---
Author Author [facility] Organization [facility] Address Unknown Phone Unavailable Care Team Providers Care Through Freight Engineer Name Role Phone Ebony Sharp MD PCP Encounter Details Care Team Description Date Type Department Ebony Sharp MD [address] [facility] [address] [place], [place] [address] 07/22/2017 [facility] [address] [facility] [address] [place] [address] Social History Date Tobacco Use [...]
--- OUTSIDE RECORDS SUMMARY | 2020-03-16 14:02 | XMS REPORT | Encounter Summary ---
Author Author [facility] Organization [facility] Address Unknown Phone Unavailable Care Team Providers Care Automotive Designer Name Role Phone Ebony Sharp MD PCP Encounter Details Care Team Description Date Type Department Adelaida Olivas MD [address] [facility] [address] [place] [address] 07/26/2017 Hist-Telephone [place] [facility] [address] [facility] [address] [place], [place] [address] Social History Date Tobacco Use Types Packs/Day [...] Olivas MD - 07/26/2017 10:36 AM SUPERVISOR RECLAMATION Phone Note Call from Other Clinic Summary of call: Rosa with [facility] is calling. She states that the [facility] ents insurance changed on 07/23/[address] scan now requires prior auth. Sh e states the patient was scheduled today for the CT. She is requesting a call t o discuss if this needs to be rescheduled. Please call back at [phone] Call taken by: Trina Rhodes on July 26, 2017 10:38 AM Follow-up for Phone Call Follow-up Details: getting new auth for [employer] Follow-up by: Edith Bautista on July 26, 2017 10:46 AM RVISOR RECLAMATION documented in this encounter Plan of Treatment Not on filedocumented as of this encounter Visit Diagnoses Not on filedocumented in this encounter Additional Health Concerns Last Indicated Resolved Time Infection Onset Date 08/30/2017 04/19/2018 12:13 PM CDT Influenza 08/30/2017 08/30/2019 08/30/2019 1:09 PM SUPERVISOR RECLAMATION Influenza - Rule Out 08/30/2019 08/31/2019 09/17/2019 8:17 AM SUPERVISOR RECLAMATION RSV 08/31/2019 documented as of this encounter
--- OUTSIDE RECORDS SUMMARY | 2020-03-16 14:02 | XMS REPORT | Encounter Summary ---
Author Author [facility] Organization [facility] Address Unknown Phone Unavailable Care Team Providers Care Dental Technician Apprentice Name Role Phone Ebony Sharp MD PCP Encounter Details Care Team Description Date Type Department Adelaida Olivas MD [address] [facility] [address] [place] [address] [phone] 08/05/2017 Hist-Other [facility] [address] [place] [address] Social History Date Tobacco Use Types Packs/Day [...] XR ANKLE LEFT Routine 08/05/2017 4:11 PM METAL ORGAN PIPE MAKER documented in this encounter Results * XR Ankle left (08/05/2017 4:11 PM METAL ORGAN PIPE MAKER) Specimen Performing Organization Address City/State/Zipcode Ph one Number LEVI documented in this encounter Visit Diagnoses Not on filedocumented in this encounter Additional Health Concerns Last Indicated Resolved Time Infection Onset Date 08/30/2017 04/19/2018 12:13 PM CDT Influenza 08/30/2017 documented as of this encounter
--- OUTSIDE RECORDS SUMMARY | 2020-03-16 14:02 | XMS REPORT | Encounter Summary ---
Author Author [facility] Organization [facility] Address Unknown Phone Unavailable Care Team Providers Care Housekeeper And Laundry Assistant Name Role Phone Ebony Sharp MD PCP Reason for Visit * Reason Comments Other Encounter Details Care Team Description Date Type Department Ebony Sharp MD [address] [facility] [address] [place], [place] [phone] Other 07/22/2017 Refill [facility] [address] [facility] [address] [place], [place] [id number] Social History Date Tobacco Use Types Packs/Day [...]
--- OUTSIDE RECORDS SUMMARY | 2020-03-16 14:02 | XMS REPORT | Encounter Summary ---
Author Author [facility] Organization [facility] Address Unknown Phone Unavailable Care Team Providers Care Yard Truck Driver Name Role Phone Ebony Sharp MD PCP Encounter Details Care Team Description Date Type Department Adelaida Olivas MD [address] [facility] [address] [place], [place] [id number] 08/26/2017 Hist-Transcript [facility] En[facility] [address] [facility] [address] [place], [place] [id number] Social History Date Tobacco Use [...] Adelaida Olivas MD - 08/26/2017 2:06 PM SLITTER CUT OFF OPERATOR - History of Present Illness Ms. Patten [...] anterior joint line. Impression LEFT ANKLE PAIN ([id number]) CONTRACTURE OF ANKLE JOINT LEFT ([id number]) LEFT ANKLE PRIMARY OSTEOARTHRITIS ([id number]) Slowly improving tibiotalar nonunion. Plan At this [...] 1 po q daily VITAMIN D (ERGOCALCIFEROL) 82323 UNIT ORAL CAPSULE (ERGOCALCIFEROL) 1 po q [...] used: Print then Give to Patient RxID: [id number] Vital Signs Ht: 62 in. Wt: 236 [...] trates no overt evidence of bony subluxation. TER CUT OFF OPERATOR documented in this encounter Plan of Treatment Not on filedocumented as of this encounter Visit Diagnoses Not on filedocumented in this encounter Additional Health Concerns Last Indicated Resolved Time Infection Onset Date 08/30/2017 04/19/2018 12:13 PM CDT Influenza 08/30/2017 08/30/2019 08/30/2019 1:09 PM SLITTER CUT OFF OPERATOR Influenza - Rule Out 08/30/2019 08/31/2019 09/17/2019 8:17 AM SLITTER CUT OFF OPERATOR RSV 08/31/2019 documented as of this encounter
--- OUTSIDE RECORDS SUMMARY | 2020-03-16 14:02 | XMS REPORT | Encounter Summary ---
Author Author [facility] Organization [facility] Address Unknown Phone Unavailable Care Team Providers Care Industrial Specialist Name Role Phone Ebony Sharp MD PCP Encounter Details Care Team Description Date Type Department Adelaida Oliavs MD [address] [facility] [address] [place] [address] 08/04/2017 [facility] [address] [address] [place], [place] [phone] Social History Date Tobacco Use Types Packs/Day [...] Adelaida Olivas MD - 08/04/2017 10:04 AM FINANCIAL SPECIALIST Phone Note Outgoing Call Call placed by: Lilian Greenwood on August 04, 2017 10:04 AM Summary of call: Patient requesting status of nucynta refill. [phone] Follow-up for Phone Call Follow-up Details: I [...] Lopez on August 04, 2017 1:59 PM NCIAL SPECIALIST documented in this encounter Plan of Treatment Not on filedocumented as of this encounter Visit Diagnoses Not on filedocumented in this encounter Additional Health Concerns Last Indicated Resolved Time Infection Onset Date 08/30/2017 04/19/2018 12:13 PM CDT Influenza 08/30/2017 08/30/2019 08/30/2019 1:09 PM FINANCIAL SPECIALIST Influenza - Rule Out 08/30/2019 08/31/2019 09/17/2019 8:17 AM FINANCIAL SPECIALIST RSV 08/31/2019 documented as of this encounter
--- OUTSIDE RECORDS SUMMARY | 2020-03-16 14:02 | XMS REPORT | Encounter Summary ---
Author Author [facility] Organization [facility] Address Unknown Phone Unavailable Care Team Providers Care Answering Service Agent Name Role Phone Ebony Sharp MD PCP Reason for Visit * Reason Comments Other Encounter Details Care Team Description Date Type Department Ebony Sharp MD [address] [facility] [address] [place], [place] [phone] Other 08/04/2017 Refill [facility] Prim[facility] Care - [facility] [address] [facility] [address] [place], [place] [phone] Social History Date Tobacco Use Types Packs/Day [...]
--- OUTSIDE RECORDS SUMMARY | 2020-03-16 14:02 | XMS REPORT | Encounter Summary ---
Author Author [facility] Organization [facility] Address Unknown Phone Unavailable Care Team Providers Care Mine Wedge Sawyer Name Role Phone Ebony Sharp MD PCP Reason for Visit * Reason Comments Shortness of Breath * Auth/Cert Referred By Contact Referred To Contact Status Reason Specialty Diagnoses / Procedures Diagnoses Influenza Encounter Details Care Team Description Date Type Department Omar Vásquez MD [address] [place] [address] Ralf Pugh MD [address] [place], [place] [id number] Santa Julian MD [address] [place], [place] [id number] Preethi Zavala MD [address] [place], [place] [id number] Maikel Gasca MD [address] [place], [place] [id number] Influenza (Primary Dx); COPD exacerbation (HCC); Type 2 diabetes mellitus without complication, 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); Influenza A 08/29/2017 [facility] 09/01/[address] [place], [place] [id number] Social History Date Tobacco Use Types Packs/Day [...] Comments Vital Sign 159/83 09/01/2017 8:07 AM RELATIONSHIP BANKER Nurse notified Blood Pressure 61 09/01/2017 11:30 AM RELATIONSHIP BANKER Pulse 36.4 C (97.5 F) 09/01/2017 8:07 AM RELATIONSHIP BANKER Temperature 18 09/01/2017 8:07 AM RELATIONSHIP BANKER Respiratory Rate 96% 09/01/2017 11:30 AM RELATIONSHIP BANKER Oxygen Saturation - - Inhaled Oxygen Concentration 95.7 kg (211 lb) 08/29/2017 7:44 AM RELATIONSHIP BANKER Weight 157.5 cm (5' 2") 08/29/2017 7:44 AM RELATIONSHIP BANKER Height 38.59 08/29/2017 7:44 AM RELATIONSHIP BANKER Body Mass Index documented in this encounter Discharge Summaries * Maikel Gasca MD - 09/01/2017 10:13 AM RELATIONSHIP BANKER Patient Name: Isiah Benítez Age: 67 y.o. [...] 09/01/2017 10:13 AM cc: Ebony Sharp MD TIONSHIP BANKER documented in this encounter Discharge Instructions * [...] dise ase People who live in a halfway or long-term care facility How is the [...] is also available but isnotrecommended for the 9666-7183 flu season. The CDC says this is [...] open the do or. Using alcohol-based hand applied research director Alcohol-based handcleaners are also a good choice. [...] for people in hospitals and long-term care [facility] . To help prevent the spread of flu, many hospitals and nursing homes take the se steps: Healthcare providers wash their hands or use an alcohol-based hand tank car cleaner be fore and after treating each patient. People with the flu have private rooms and bathrooms or share a room with diego eone with the same infection. People who are at high risk for the flu but don't have it are encouraged to g et theflu and pneumonia vaccines. All healthcare workers are encouraged or required toget flu shots. Date Last Reviewed: 07/23/201619990253-8053 [employer]. [address] [place] [address] 7. All rights reserved. This information is not intended as a substitute for pro fessional medical care. Always follow your healthcare professional's instruction s. * Attachments The following attachments cannot be sent through Care Everywhere.* Oseltamivir capsules (Ugandan) * PREDNISONE ORAL TABLET (VIETNAMESE) documented in this encounter Medications at Time [...] Isidra Pathak LCSW - 08/31/2017 4:46 PM RELATIONSHIP BANKER 08/31/17 1645 Discharge Planning Anticipated discharge destination Home Self Care Multidisciplinary Discharge Rounds Disciplines Present Television Technician;Hospitalist RN;Physician;Rehab;Social Work Discharge Comments HSC in 1-2 days TIONSHIP BANKER * Maikel Gasca MD - 08/31/2017 12:10 PM RELATIONSHIP BANKER [facility] Hospitalist - Progress Note Patient Name: Isiah Do Board Account No: [id number] Date of : 1950 Date of Admission: [...] results (as indicated), current inpatient medications and media production support manager notes with pertainent findings noted within the [...] details regarding this patients treatment plan. Room: [address] [place] [address] Diet: Diet-Consistent Carbohydrate (75 gm); Low Sodium [...] so dium chloride, traMADol Maikel Gasca MD [facility] Hospitalist Please page through physician paging. . TIONSHIP BANKER * Isidra Pathak LCSW - 08/31/2017 10:20 AM RELATIONSHIP BANKER 08/31/17 1019 Discharge Planning Anticipated discharge destination Home Self Care Multidisciplinary Discharge Rounds Disciplines Present Television Technician;Emergency Communications Operator;Social Work;Primary diagnostic radiologic technologist Comments HSC in 1-2 days TIONSHIP BANKER * Preethi Zavala MD - 08/30/2017 3:09 PM RELATIONSHIP BANKER [facility] Hospitalist - Progress Note Patient Name: Isiah Do Board Account No: [id number] Date of : 1950 Date of Admission: [...] results (as indicated), current inpatient medications and media production support manager notes with pertainent findings noted within the [...] details regarding this patients treatment plan. Room: [address] [place] [address] Diet: Diet-Consistent Carbohydrate (75 gm); Low Sodium [...] promethazine-codeine, sodium chlorid e Preethi Zavala MD [facility] Hospitalist Please page through physician paging. . TIONSHIP BANKER documented in this encounter H&P Notes * Lilibeth Redmond RN QUALITY PROCESS AUDITOR - 08/29/2017 1:03 PM RELATIONSHIP BANKER [facility] Hospitalist - History & Physical Patient Name: Isiah Benítez Account No: [id number] Date of : 1950 Date of Admission: 08/29/2017 8:43 AM Primary Care Physician: Ebony Sharp MD; Subjective Chief Complaint: Shortness of Breath History of Present illness: Ms. Isiah Benítez is a 67 y.o. female with hx of LOW VOLTAGE TECHNICIAN D, DM and HTN who presented with [...] (); Cataract (2011, 2012); Chronic pain disorder; LOW VOLTAGE TECHNICIAN D (chronic obstructive pulmonary disease) (); Depression; [...] father and mother; Stroke in her formerly [facility] and mother. Social History: She [...] the performing provider), EKG, current inpatient medications, media production support manager notes, p rior admission/outpatient notes and prior [...] treatment as noted above. Lilibeth Redmond RN QUALITY PROCESS AUDITOR [facility]ist Please page through physician paging. . TIONSHIP BANKER Associated attestation - Ralf Pugh MD - 08/29/2017 2:53 PM RELATIONSHIP BANKER [facility] Hospitalist - History & Physical Patient Name: Isiah Benítez Account No: [id number] Date of : 1950 Date of Admission: [...] the performing provider), current inpatient medications and media production support manager notes with pertainent findings noted within the [...] treatment as noted above. Ralf Pugh MD [facility] Please page through physician paging. . documented in this encounter ED Notes * Kiana Stearns RN - 08/29/2017 2:05 PM RELATIONSHIP BANKER Bed: [facility] Expected date: Expected time: Means of arrival: Comments: ROOM 3 HERE TIONSHIP BANKER Katerina Mxa RN - 08/29/2017 12:26 PM RELATIONSHIP BANKER Pt resting on cart and eating lunch at this time. Nad, VSS, call light within re ach, advised of POC and states understanding. TIONSHIP BANKER * Katerina Nash RN - 08/29/2017 11:22 AM RELATIONSHIP BANKER Pt resting on cart, nad, VSS, call light within reach, advised of POC and states understanding. TIONSHIP BANKER * Thania Marroquin RN - 08/29/2017 10:05 AM RELATIONSHIP BANKER Respiratory therapist notified of breathing treatment. TIONSHIP BANKER * Katerina Nash RN - 08/29/2017 9:[address] Vásquez notified of positive flu A TIONSHIP BANKER Katerina Max RN - 08/29/2017 9:31 AM RELATIONSHIP BANKER Pt resting on cart, nad, VSS, call light within reach, advised of POC and states understanding. TIONSHIP BANKER Omar Ding MD - 08/29/2017 9:00 AM RELATIONSHIP BANKER 08/29/2017 [facility] History Chief Complaint Patient [...] frontal Final Result No consolidation. READING SITE: [facility] Results for orders placed or [...] Disposition Admit Omar Vásquez MD 08/29/17 1038 TIONSHIP BANKER documented in this encounter Miscellaneous Notes * Care Progression Final DC Note - Thania Mcneal, ADAM - 09/01/2017 3:06 PM RELATIONSHIP BANKER Final Discharge Note Anticipated discharge destination: Home Self Care Discharge goal and plan is mutually agreed upon by patient. Patient will discharge to: Home self care with her daughter. Transportation: Provided by the patient's daughter. Discharge Time: After 4:00 when the patient's daughter is off work. Thania Mcneal RN Television Technician [phone]. TIONSHIP BANKER * Care Progression Initial Assessment - Thania Mcneal RN - 09/01/2017 3:03 PM RELATIONSHIP BANKER Care Progression Initial Assessment Note Additional information: [...] Appropriate, Speech: Normal, Orientation Level: Intact Patient Business Information Consultant Name: Lauryn Garcia, Patient Business Information Consultant Juan ne: [phone] Patient's Living Arrangement: House Patients support system has been Support System: Children Patient has verbalized the following concerns at discharge: None Family Concerns: N/A Pt has Payor: MEDICARE REPLACEMENT PLAN / Plan: [facility] MEDICARE ADVANTAGE / Produ ct Type: *No Product type* / Legal Information: Advance Directives: Power of Slot Editor for health care, Legal Documentation: Requested Patients [...] MD and abhilash ves their medications from [employer] [address] [place], [place] - [address] [facility] [address] [facility] [address] [facility] [facility] [address] [facility] [address] [facility] [id number] Discharge Planning Interventions General Discharge Note Patients [...] discharge plan : Yes Thania Mcneal RN Television Technician [phone]. TIONSHIP BANKER * Plan of Care - Vivian Friend RN - 09/01/2017 12:23 PM RELATIONSHIP BANKER Problem: Knowledge Deficit Goal: Patient/family/caregiver demonstrates understanding [...] fall during their Inpatient stay Outcome: Progressing TIONSHIP BANKER * Plan of Care - Ladan Allan RN - 08/31/2017 10:18 PM RELATIONSHIP BANKER Problem: Knowledge Deficit Goal: Patient/family/caregiver demonstrates understanding [...] fall during their Inpatient stay Outcome: Progressing TIONSHIP BANKER * Plan of Zena Kern RN - 08/31/2017 10:44 AM RELATIONSHIP BANKER Problem: Knowledge Deficit Goal: Patient/family/caregiver demonstrates understanding [...] fall during their Inpatient stay Outcome: Progressing TIONSHIP BANKER * Plan of Chayo - Ladan Allan RN - 08/30/2017 9:55 PM RELATIONSHIP BANKER Problem: Knowledge Deficit Goal: Patient/family/caregiver demonstrates understanding [...] call light approprietly. Call light within reach TIONSHIP BANKER * Plan of Tiny Gallo RN - 08/30/2017 8:57 AM RELATIONSHIP BANKER Problem: Knowledge Deficit Goal: Patient/Family/Caregiver sets realistic [...] fall during their Inpatient stay Outcome: Progressing TIONSHIP BANKER * Plan of Care - Donna Joy RN - 08/29/2017 10:53 PM RELATIONSHIP BANKER Problem: Knowledge Deficit Goal: Patient/family/caregiver demonstrates understanding [...] fall during their Inpatient stay Outcome: Progressing TIONSHIP BANKER * Assessment & Plan Note - Maikel Gasca MD - 08/29/2017 2:04 PM RELATIONSHIP BANKER Associated Problem(s): Diabetes mellitus, type II (HCC) Elevated Increase lantus and ssi. TIONSHIP BANKER * Assessment & Plan Note - Maikel Gasca MD - 08/29/2017 2:03 PM RELATIONSHIP BANKER Associated Problem(s): Influenza A Continue tamfilu TIONSHIP BANKER * Assessment & Plan Note - Lilibeth Redmond RN QUALITY PROCESS AUDITOR - 08/29/2017 2:03 PM RELATIONSHIP BANKER Associated Problem(s): Essential hypertension Normotensive Continue home meds TIONSHIP BANKER * Assessment & Plan Note - Maikel Gasca MD - 08/29/2017 2:01 PM RELATIONSHIP BANKER Associated Problem(s): COPD exacerbation (HCC) Change steroids to po duonebs tamiflu Supportive care. TIONSHIP BANKER documented in this encounter Plan of Treatment Not on filedocumented as of this encounter Procedures Comments Procedure Name Priority Date/Time Associated Diag nosis GLUCOSE POC Routine 09/01/2017 11:39 AM RELATIONSHIP BANKER GLUCOSE POC Routine 09/01/2017 8:17 AM RELATIONSHIP BANKER GLUCOSE POC Routine 08/31/2017 8:49 PM RELATIONSHIP BANKER GLUCOSE POC Routine 08/31/2017 4:01 PM RELATIONSHIP BANKER GLUCOSE POC Routine 08/31/2017 11:40 AM RELATIONSHIP BANKER GLUCOSE POC Routine 08/31/2017 7:32 AM RELATIONSHIP BANKER GLUCOSE POC Routine 08/31/2017 3:09 AM RELATIONSHIP BANKER GLUCOSE POC Routine 08/31/2017 12:13 AM RELATIONSHIP BANKER GLUCOSE POC Routine 08/30/2017 8:59 PM RELATIONSHIP BANKER GLUCOSE POC Routine 08/30/2017 5:15 PM RELATIONSHIP BANKER GLUCOSE POC Routine 08/30/2017 11:30 AM RELATIONSHIP BANKER CBC AND DIFF (MANUAL DIFF Routine 08/30/2017 IF NECESSARY) 8:12 AM RELATIONSHIP BANKER BASIC METABOLIC PANEL Routine 08/30/2017 8:12 AM RELATIONSHIP BANKER GLUCOSE POC Routine 08/30/2017 7:30 AM RELATIONSHIP BANKER GLUCOSE POC Routine 08/30/2017 3:38 AM RELATIONSHIP BANKER GLUCOSE POC Routine 08/30/2017 12:26 AM RELATIONSHIP BANKER GLUCOSE POC Routine 08/29/2017 9:19 PM RELATIONSHIP BANKER GLUCOSE POC Routine 08/29/2017 5:40 PM RELATIONSHIP BANKER INFLUENZA AB ANTIGEN STAT 08/29/2017 9:26 AM RELATIONSHIP BANKER XR CHEST SINGLE VIEW STAT 08/29/2017 FRONTAL 9:00 AM RELATIONSHIP BANKER TROPONIN STAT 08/29/2017 9:00 AM RELATIONSHIP BANKER PROTHROMBIN TIME/INR STAT 08/29/2017 9:00 AM RELATIONSHIP BANKER COMPREHENSIVE METABOLIC STAT 08/29/2017 PANEL 9:00 AM RELATIONSHIP BANKER CBC AND DIFF (MANUAL DIFF STAT 08/29/2017 IF NECESSARY) 9:00 AM RELATIONSHIP BANKER PULSE OXIMETRY, STAT 08/29/2017 CONTINUOUS 8:48 AM RELATIONSHIP BANKER ECG STAT 08/29/2017 7:48 AM RELATIONSHIP BANKER documented in this encounter Results * GLUCOSE POC (09/01/2017 11:39 AM RELATIONSHIP BANKER) Only the most recent of 16 results within the time period is included. Pathologist [facility] Glucose POC 183 (H) 70 - 100 mg/dL [facility] Specimen Performing Organization Address City/State/Zipcode Ph one Number [facility] [address] [facility] [place] [address] [facility] [address] [place] [facility] [place] [address], [facility] * Basic Metabolic Panel (08/30/2017 8:12 AM RELATIONSHIP BANKER) [facility] Sodium 140 133 - 147 MEQ/L [facility] Potassium 3.9 3.5 - 5.3 MEQ/L [facility] Chloride 106 96 - 112 MEQ/L [facility] Carbon Dioxide 25 20 - 32 MEQ/L [facility] Anion Gap 9 5 - 17 [facility] Calcium 8.7 8.4 - 10.5 mg/dL [facility] Glucose 157 (H) 70 - 100 mg/dL [facility] Blood Urea 16 7 - 26 mg/dL [facility] Nitrogen [facility] Creatinine 0.7 0.4 - 1.1 mg/dL [facility] eGFR Female AA 101 60 - [...] wit h accession number [facility] Abdi [id number]. KIKI [facility] Performing Organization Address City/State/Zipcode Ph one Number [facility] [address] [facility] [place] [facility] [place] [address] [facility] [address] [facility] [place] [address], [facility] * CBC and Diff (manual diff if necessary) (08/30/2017 8:12 AM RELATIONSHIP BANKER) Only the most recent of 2 results within the time period is included. WBC 8.42 4.00 - 11.00 TH/uL [facility] RBC 3.73 (L) 4.00 - 5.00 MIL/uL [facility] Hemoglobin 12.0 12.0 - 15.0 g/dL [facility] Hematocrit 36 36 - 45 % [facility] MCV 97 80 - 99 fL [facility] MCH 32 27 - 34 pg [facility] MCHC 33 32 - 36 % [facility] RDW 14.4 9.0 - 14.5 % [...] order wit accession number [facility] PRICE [id number]. KIKI [facility] Performing Organization Address City/State/Zipcode Ph one Number [facility] [address] [facility], [place] [id number] [facility] [address] [facility] [place] [address], [facility] * Influenza AB Antigen (08/29/2017 9:26 AM RELATIONSHIP BANKER) Influenza A Positive (A)Comment: If this Negative [facility] Antigen is an inpatient, droplet [facility] precautions are required with [facility] this organism Influenza B Negative Negative [facility] Antigen Comment: [facility] A negative rapid influenza [facility] antigen result does not exclude influenza infection. If this patient is being hospitalized, influenza PCR should be ordered. Specimen Nasopharynx, Performing Organization Address City/State/Zipcode Ph one Number [facility] [address] [facility], [place] [id number] [facility] [address] [facility] [address], [place] [phone] [facility] * XR Chest single view frontal (08/29/2017 9:00 AM RELATIONSHIP BANKER) Specimen Impressions Performed At No consolidation. LEVI READING SITE: [facility] Narrative Performed At Patient: ISIAH BENÍTEZ Sex#: F # [id number] Jose#: [id number] [place] [facility] Procedure Requested: [id number] XR CHEST SINGLE VIEW FRONTAL Reason for [...] Rad Results In - 08/29/2017 9:15 AM RELATIONSHIP BANKER Patient: ISIAH BENÍTEZ Sex#: F # [id number] Jose#: [id number] Location: [facility] Procedure Requested: [id number] XR CHEST SINGLE VIEW FRONTAL Reason for [...] are stable. IMPRESSION No consolidation. READING SITE: [facility] Performing Organization Address City/State/Zipcode Ph one Number [facility] * Troponin 0 hr (08/29/2017 9:00 AM RELATIONSHIP BANKER) Troponin <0.01 0.00 - 0.03 ng/mL [facility] Comment: [facility] Troponin Value [facility] Interpretation 0.00 - 0.03 Healthy 0.04 - 0.12 Increased Cardiac Risk >0.12 Myocardial Infarction Troponin may not become elevated until 6 to 8 hours after onset of symptoms. Specimen Blood Performing Organization Address City/State/[facility] Ph one Number [facility] [address] [place] [facility] [place] [address] [facility] [address] [place] [address], [facility] * Prothrombin Time/INR - ONLY if patient is on Warfarin (08/29/2017 9:00 AM RELATIONSHIP BANKER) Protime 12.8 11.4 - 15.0 sec [facility] INR 1.0 0.8 - 1.2 [facility] Specimen Blood Performing Organization Address City/[facility] Ph one Number [facility] [address] [place] [facility] [place] [address] [facility] [address] [place] [place] [address], [facility] * Comprehensive Metabolic Panel (08/29/2017 9:00 AM RELATIONSHIP BANKER) Sodium 140 133 - 147 MEQ/L [facility] [...] Protein Total 7.5 6.0 - 8.2 g/dL [facility] Serum [facility] Albumin 4.2 3.5 - 5.0 g/dL [facility] Alkaline 84 42 - 140 IU/L [facility] Phosphatase [facility] Alanine 31 13 - 69 IU/L [facility] Aminotransferas [facility] Aspartate 28 15 - 46 IU/L [facility] Aminotransferas [facility] Bilirubin Total 0.5 0.2 - 1.3 mg/dL [facility] Blood Urea 17 7 - 26 mg/dL [facility] Nitrogen [facility] Creatinine 0.7 0.4 - 1.1 mg/dL [facility] eGFR Female AA 101 60 - [address] [facility] Comment: [facility] Chronic Kidney Disease less [facility] than 60 mL/min/1.73 sq.m Kidney failure less than 15 mL/min/1.73 sq.m eGFR Female 84 60 - 200 [facility] Non-AA Comment: [facility] Chronic Kidney Disease less [facility] than 60 mL/min/1.73 sq.m Kidney failure less than 15 mL/min/1.73 sq.m Specimen Blood Performing Organization Address City/State/Zipcode Ph one Number [facility] [address] [facility] [place] [address] [facility] [address] [place] [facility] [address], [facility] * Electrocardiogram (ECG) (08/29/2017 7:48 AM RELATIONSHIP BANKER) Specimen Narrative Performed At [facility] ED Test Date: 2017-08-29 Pat Name: ISIAH BENÍTEZ Department: ERS Room: Gender: Female Director Of Field Coordination: [id number] : 1950 Requested By: JASON GUILLORY Order Number: [id number] Reading MD: Measurements Intervals [place] Rate: 73 P: 58 [place]: 156 QRS: 63 QRSD: 100 T: 61 QT: 396 QTc: 437 Interpretive Statements SINUS RHYTHM Procedure Note Interface, External Ris In - 08/29/2017 7:49 AM RELATIONSHIP BANKER [facility] ED Test Date: 2017-08-29 Pat Name: ISIAH BENÍTEZ Department: ERS Room: Gender: Female Director Of Field Coordination: [id number] : 1950 Requested By: JASON GUILLORY Order Number: [id number] Reading MD: Measurements Intervals [place] Rate: 73 P: 58 [place]: 156 QRS: 63 QRSD: 100 T: 61 [...] not exceed 2 GM/DAY., 08/31/2017 9:34 PM RELATIONSHIP BANKER 25 mg amitriptyline (ELAVIL) tablet 25 mg Given 25 mg, Oral, Nightly, First dose on 08/29/17 at 2100 25 mg Given 08/30/2017 8:12 PM RELATIONSHIP BANKER 25 mg Given 08/29/2017 8:08 PM RELATIONSHIP BANKER 09/01/2017 8:50 AM RELATIONSHIP BANKER 5 mg amLODIPine (NORVASC) tablet 5 mg Given 5 mg, Oral, Daily, First dose on 08/29/17 at 1915 5 mg Given 08/31/2017 9:13 AM RELATIONSHIP BANKER 5 mg Given 08/30/2017 8:30 AM RELATIONSHIP BANKER 08/31/2017 3:58 AM RELATIONSHIP BANKER 100 mg benzonatate (TESSALON) capsule 100 mg Given 100 mg, Oral, 3 times daily PRN, cough, Starting 08/29/17 at 1331, DO NOT CRUSH OR CHEW., 100 mg Given 08/30/2017 8:13 PM RELATIONSHIP BANKER 100 mg Given 08/29/2017 8:08 PM RELATIONSHIP BANKER 09/01/2017 8:50 AM RELATIONSHIP BANKER 200 mg celecoxib (CeleBREX) capsule 200 mg Given 200 mg, Oral, Daily, First dose on 08/29/17 at 1207 200 mg Given 08/31/2017 9:14 AM RELATIONSHIP BANKER 200 mg Given 08/30/2017 8:30 AM RELATIONSHIP BANKER 09/01/2017 8:50 AM RELATIONSHIP BANKER 20 mg citalopram (CeleXA) tablet 20 mg Given 20 mg, Oral, Daily, First dose on 08/29/17 at 1915 20 mg Given 08/31/2017 9:14 AM RELATIONSHIP BANKER 20 mg Given 08/30/2017 8:30 AM RELATIONSHIP BANKER dextrose 10% (D10W) bolus 125-250 mL 125-250 [...] glucose greater than 80., 08/29/2017 10:46 AM RELATIONSHIP BANKER 100 mg doxycycline hyclate (VIBRA-TABS) tablet Given 100 mg 100 mg, Oral, Once, Indications: COPD, 08/29/17 at 1039, For 1 dose 09/01/2017 7:57 AM RELATIONSHIP BANKER 1 puff fluticasone-vilanterol (BREO ELLIPTA) Given 200-25 mcg/actuation inhaler 1 puff 1 puff, Inhalation, Daily, First dose o n 08/29/17 at 1915, Rinse mouth with water after use if patient not on vent. , 1 puff Given 08/31/2017 8:24 AM RELATIONSHIP BANKER 1 puff Given 08/30/2017 7:58 AM RELATIONSHIP BANKER 09/01/2017 8:50 AM RELATIONSHIP BANKER 300 mg gabapentin (NEURONTIN) capsule 300 mg Given 300 mg, Oral, 3 times daily, First dose on 08/29/17 at 2100 300 mg Given 08/31/2017 9:33 PM RELATIONSHIP BANKER 300 mg Given 08/31/2017 3:56 PM RELATIONSHIP BANKER glucagon (GLUCAGEN) injection 1 mg 1 mg, [...] patient o n side., 09/01/2017 8:50 AM RELATIONSHIP BANKER 1,200 mg guaiFENesin (MUCINEX) 12 hr tablet 1,200 Given mg 1,200 mg, Oral, 2 times daily, First dose on 08/29/17 at 1333, DO NOT GERI H OR CHEW., 1,200 mg Given 08/31/2017 9:34 PM RELATIONSHIP BANKER 1,200 mg Given 08/31/2017 9:13 AM RELATIONSHIP BANKER 09/01/2017 5:45 AM RELATIONSHIP BANKER 5,000 Units Abdomina l Tissue heparin (porcine) 5,000 unit/mL Given injection 5,000 Units 5,000 Units, Subcutaneous, Every 8 hours, First dose on Wed08/29/17 at 2200 5,000 Units Abdominal Tissue Given 08/31/2017 9:34 PM RELATIONSHIP BANKER 5,000 Units Abdominal Tissue Given 08/31/2017 3:56 PM RELATIONSHIP BANKER 08/29/2017 8:10 PM RELATIONSHIP BANKER 5,000 Units Abdomina l Tissue heparin (porcine) 5,000 unit/mL Given injection 5,000 Units 5,000 Units, Subcutaneous, Every 8 hours, First dose on Wed08/29/17 at 1455 5,000 Units Abdominal Tissue Given 08/29/2017 2:58 PM RELATIONSHIP BANKER 08/30/2017 9:34 PM RELATIONSHIP BANKER 10 Units Abdomina l Tissue insulin glargine (LANTUS) injection 10 Given Units 10 Units, Subcutaneous, Nightly, First dose on Wed08/29/17 at 2100 10 Units Abdominal Tissue Given 08/29/2017 10:10 PM RELATIONSHIP BANKER 08/31/2017 9:34 PM RELATIONSHIP BANKER 15 Units Abdomina l Tissue insulin glargine (LANTUS) injection 15 Given Units 15 Units, Subcutaneous, Nightly, First dose (after last modification) on Wed08/31/17 at 2100 08/31/2017 12:08 PM RELATIONSHIP BANKER 4 Units Abdomina l Tissue insulin lispro [...] Units Abdominal Tissue Given 08/31/2017 9:14 AM RELATIONSHIP BANKER 4 Units Abdominal Tissue Given 08/30/2017 9:34 PM RELATIONSHIP BANKER 09/01/2017 1:20 PM RELATIONSHIP BANKER 2 Units Left Arm insulin lispro (HumaLOG) [...] Units Left Arm Given 09/01/2017 8:49 AM RELATIONSHIP BANKER 6 Units Abdominal Tissue Given 08/31/2017 9:34 PM RELATIONSHIP BANKER 08/29/2017 9:09 AM RELATIONSHIP BANKER 3 mL ipratropium-albuterol (DUO-NEB) 0.5-3 Given mg/3 mL nebulizer solution 3 mL 3 mL, Inhalation, Once, Export 08/29/17 at 0902, For 1 dose 08/29/2017 10:15 AM RELATIONSHIP BANKER 3 mL ipratropium-albuterol (DUO-NEB) 0.5-3 Given mg/3 mL nebulizer solution 3 mL 3 mL, Inhalation, Once, Wed08/29/17 at 1006, For 1 dose 09/01/2017 11:29 AM RELATIONSHIP BANKER 3 mL ipratropium-albuterol (DUO-NEB) 0.5-3 Given mg/3 mL nebulizer solution 3 mL 3 mL, Inhalation, 4 times daily, First dose on Wed08/29/17 at 1333 3 mL Given 09/01/2017 7:57 AM RELATIONSHIP BANKER 3 mL Given 08/31/2017 8:53 PM RELATIONSHIP BANKER 08/31/2017 4:32 AM RELATIONSHIP BANKER 3 mL ipratropium-albuterol (DUO-NEB) 0.5-3 Given mg/3 mL nebulizer solution 3 mL 3 mL, Inhalation, As needed, wheezing, Starting Wed08/31/17 at 0429 08/30/2017 3:10 PM RELATIONSHIP BANKER 15 mg ketorolac (TORADOL) injection 15 mg Given 15 mg, Intravenous, Every 6 hours PRN, moderate pain (pain score 4-6), severe pain (pain score 7-10), Starting Wed08/29/17 at 1331, For 5 doses 15 mg Given 08/30/2017 9:00 AM RELATIONSHIP BANKER 15 mg Given 08/30/2017 2:55 AM RELATIONSHIP BANKER 08/31/2017 9:33 PM RELATIONSHIP BANKER 800 mg metaxalone (SKELAXIN) tablet 800 mg Given 800 mg, Oral, Nightly, First dose on 08/29/17 at 2100 800 mg Given 08/30/2017 8:13 PM RELATIONSHIP BANKER 800 mg Given 08/29/2017 8:08 PM RELATIONSHIP BANKER 08/29/2017 9:22 AM RELATIONSHIP BANKER 125 mg methylPREDNISolone sod suc(PF) Given (Solu-MEDROL) injection 125 mg 125 mg, Intravenous, Once, Export 08/29/17 a t 0902, For 1 dose 08/31/2017 9:13 AM RELATIONSHIP BANKER 40 mg methylPREDNISolone sod suc(PF) Given (Solu-MEDROL) injection 40 mg 40 mg, Intravenous, Every 8 hours scheduled, First dose (after last modification) on Wed08/30/17 at 1700 40 mg Given 08/31/2017 1:06 AM RELATIONSHIP BANKER 40 mg Given 08/30/2017 3:10 PM RELATIONSHIP BANKER 08/31/2017 6:38 PM RELATIONSHIP BANKER 40 mg methylPREDNISolone sod suc(PF) Given (Solu-MEDROL) injection 40 mg 40 mg, Intravenous, Every 8 hours scheduled, First dose (after last modification) on Wed08/31/17 at 1700, Fo r 1 dose 09/01/2017 8:49 AM RELATIONSHIP BANKER 100 mg metoprolol tartrate (LOPRESSOR) tablet Given 100 mg 100 mg, Oral, 2 times daily, First dose on Wed08/29/17 at 2100 100 mg Given 08/31/2017 9:33 PM RELATIONSHIP BANKER 100 mg Given 08/31/2017 9:13 AM RELATIONSHIP BANKER 08/29/2017 9:23 AM RELATIONSHIP BANKER 4 mg morphine 4 mg/mL injection 4 mg Given 4 mg, Intravenous, Once, Export 08/29/17 at 0902, For 1 dose 09/01/2017 8:50 AM RELATIONSHIP BANKER 75 mg oseltamivir (TAMIFLU) capsule 75 mg Given 75 mg, Oral, 2 times daily, Indications : INFLUENZA , First dose on Wed08/29/17 at 1355, For 5 days 75 mg Given 08/31/2017 9:33 PM RELATIONSHIP BANKER 75 mg Given 08/31/2017 9:14 AM RELATIONSHIP BANKER 08/31/2017 9:33 PM RELATIONSHIP BANKER 40 mg pravastatin (PRAVACHOL) tablet 40 mg Given 40 mg, Oral, Nightly, First dose on 08/29/17 at 2100 40 mg Given 08/30/2017 8:13 PM RELATIONSHIP BANKER 40 mg Given 08/29/2017 8:08 PM RELATIONSHIP BANKER 08/30/2017 8:30 AM RELATIONSHIP BANKER 40 mg predniSONE (DELTASONE) tablet 40 mg Given 40 mg, Oral, Daily, First dose on Wed08/30/17 at 0900, For 5 days, Give with food to reduce GI upset, 09/01/2017 8:50 AM RELATIONSHIP BANKER 40 mg predniSONE (DELTASONE) tablet 40 mg Given 40 mg, Oral, Daily, First dose on Wed09/01/17 at 0900, Give with food to reduce GI upset, 09/01/2017 8:49 AM RELATIONSHIP BANKER 5 mL promethazine-codeine (PHENERGAN with Given CODEINE) 6.25-10 mg/5 mL syrup 5 mL 5 mL, Oral, Every 4 hours PRN, cough, Starting Wed08/30/17 at 1315 5 mL Given 08/31/2017 9:34 PM RELATIONSHIP BANKER 5 mL Given 08/31/2017 3:56 PM RELATIONSHIP BANKER 08/31/2017 5:17 AM RELATIONSHIP BANKER 50 mL/hr 50 mL/hr sodium chloride 0.9% infusion New Bag 50 mL/hr, Intravenous, Continuous, Starting 08/29/17 at 1125, For 48 hours 50 mL/hr 50 mL/hr New Bag 08/30/2017 9:00 AM RELATIONSHIP BANKER 50 mL/hr 50 mL/hr New Bag 08/29/2017 2:12 PM RELATIONSHIP BANKER 09/01/2017 10:50 AM RELATIONSHIP BANKER 50 mg traMADol (ULTRAM) tablet 50 mg Given 50 mg, Oral, Every 6 hours PRN, mild pain (pain score 1-3), moderate pain (pain score 4-6), Starting Wed08/30/17 a t 2150 50 mg Given 08/31/2017 9:33 PM RELATIONSHIP BANKER 50 mg Given 08/31/2017 12:11 PM RELATIONSHIP BANKER documented in this encounter Additional Health Concerns Last Indicated Resolved Time Infection Onset Date 08/30/2017 04/19/2018 12:13 PM CDT Influenza 08/30/2017 documented as of this encounter
--- OUTSIDE RECORDS SUMMARY | 2020-03-16 14:02 | XMS REPORT | Encounter Summary ---
Author Author [facility] Organization [facility] Address Unknown Phone Unavailable Care Team Providers Care Paper Folding Machine Operator Name Role Phone Ebony Sharp MD PCP Encounter Details Care Team Description Date Type Department Adelaida Olivas MD [address] [facility] [address] [place] [address] [phone] 08/26/2017 Hist-Other [facility] [address] [place] [address] Social History Date Tobacco Use Types Packs/Day [...] XR ANKLE LEFT Routine 08/26/2017 2:14 PM PAPER TWISTER documented in this encounter Results * XR Ankle left (08/26/2017 2:14 PM PAPER TWISTER) Specimen Performing Organization Address City/State/Zipcode Ph one Number [place] documented in this encounter Visit Diagnoses Not on filedocumented in this encounter Additional Health Concerns Last Indicated Resolved Time Infection Onset Date 08/30/2017 04/19/2018 12:13 PM CDT Influenza 08/30/2017 documented as of this encounter
--- OUTSIDE RECORDS SUMMARY | 2020-03-16 14:02 | XMS REPORT | Encounter Summary ---
Author Author [facility] Organization [facility] Address Unknown Phone Unavailable Care Team Providers Care Senior Bookkeeper Name Role Phone Ebony Sharp MD PCP Reason for Visit * Reason Comments Follow-up eldon l ankle/tlm [id number]: Appt. Reminder (08/24/2017 06:21 PM) Phone Call - Message Delivered (X=Answering Carlin e) Encounter Details Care Team Description Date Type Department Adelaida Olivas MD [address] [facility] [address] [place] [address] [phone] 08/26/2017 Hist-Appointmen Aide Orthopaedi c teresa Specialists [address] [facility] [address] [place] [address] Social History Date Tobacco Use Types Packs/Day [...]
--- OUTSIDE RECORDS SUMMARY | 2020-03-16 14:02 | XMS REPORT | Encounter Summary ---
Author Author [facility] Organization [facility] Address Unknown Phone Unavailable Care Team Providers Care Folder Seamer Name Role Phone Ebony Sharp MD PCP Encounter Details Care Team Description Date Type Department Adelaida Olivas MD [address] [facility] [address] [place] [address] 08/02/2017 [facility] [address] [facility] [address] [place] [address] Social History Date Tobacco Use [...] Adelaida Olivas MD - 08/02/2017 3:10 PM RETIREMENT VILLAGE MANAGER Phone Note Outgoing Call Call placed by: Edith Bautista on August 02, 2017 3:10 PM Summary of call: patient notified that CT has been approved, order has been fax ed to [facility] gave patient there phone number and mine so if they havent heard from them in two days they can follow up REMENT VILLAGE MANAGER documented in this encounter Plan of Treatment Not on filedocumented as of this encounter Visit Diagnoses Not on filedocumented in this encounter Additional Health Concerns Last Indicated Resolved Time Infection Onset Date 08/30/2017 04/19/2018 12:13 PM CDT Influenza 08/30/2017 08/30/2019 08/30/2019 1:09 PM RETIREMENT VILLAGE MANAGER Influenza - Rule Out 08/30/2019 08/31/2019 09/17/2019 8:17 AM RETIREMENT VILLAGE MANAGER RSV 08/31/2019 documented as of this encounter
--- OUTSIDE RECORDS SUMMARY | 2020-03-16 14:02 | XMS REPORT | Encounter Summary ---
Author Author [facility] Organization [facility] Address Unknown Phone Unavailable Care Team Providers Care Bundles Hanger Name Role Phone Ebony Sharp MD PCP Reason for Visit * Reason Comments Follow-up recheck left ankle Encounter Details Care Team Description Date Type Department Adelaida Olivas MD [address] [facility] [address] [place] [address] [phone] 08/05/2017 Hist-Appointfloresita Noble Orthopaedi c t Specialists [address] [facility] [address] [place] [address] Social History Date Tobacco Use Types Packs/Day [...]
--- OUTSIDE RECORDS SUMMARY | 2020-03-16 14:02 | XMS REPORT | Encounter Summary ---
Author Author [facility] Organization [facility] Address Unknown Phone Unavailable Care Team Providers Care Labor Relations Officer Name Role Phone Ebony Sharp MD PCP Encounter Details Care Team Description Date Type Department Adelaiad Olivas MD [address] [facility] [address] [place], [place] [id number] 08/05/2017 Hist-Transcript [facility] Specialists [address] [facility] [address] [place], [place] [id number] Social History Date Tobacco Use Types Packs/Day [...] Adelaida Olivas MD - 08/05/2017 3:26 PM CORPORATE SALES TRAINER - History of Present Illness Ms. Patten [...] pulse. Impression CONTRACTURE OF ANKLE JOINT LEFT (YZK66-E31.572) LEFT ANKLE PRIMARY OSTEOARTHRITIS (QSU02-P44.072) DIABETES MELLITUS (NSU67-D42.9) Stable arthrodesis site without any overt evidence [...] 1 po q daily VITAMIN D (ERGOCALCIFEROL) 94578 UNIT ORAL CAPSULE (ERGOCALCIFEROL) 1 po q [...] used: Print then Give to Patient RxID: [id number] NUCYNTA 50 MG ORAL TABLET (TAPENTADOL HCL) One PO Q 3-4 hours PRN pain #60 x 0 Entered by: Sharona Scott Authorized by: Adelaida Olivas MD Signed by: Sharona Scott on 08/05/2017 Method used: Print then Give to Patient RxID: [id number] Vital Signs Ht: 62 in. Wt: 236 lbs. T: 97.6 deg F. T site: tympanic BMI: 43.344621 She was encourage to talk with her [...] to be stabl e tibiotalar arthrodesis site. ORATE SALES TRAINER documented in this encounter Plan of Treatment Not on filedocumented as of this encounter Visit Diagnoses Not on filedocumented in this encounter Additional Health Concerns Last Indicated Resolved Time Infection Onset Date 08/30/2017 04/19/2018 12:13 PM CDT Influenza 08/30/2017 08/30/2019 08/30/2019 1:09 PM CORPORATE SALES TRAINER Influenza - Rule Out 08/30/2019 08/31/2019 09/17/2019 8:17 AM CORPORATE SALES TRAINER RSV 08/31/2019 documented as of this encounter
--- OUTSIDE RECORDS SUMMARY | 2020-03-16 14:03 | XMS REPORT | Encounter Summary ---
Author Author [facility] Organization [facility] Address Unknown Phone Unavailable Care Team Providers Care Funeral Home Director Name Role Phone Ebony Sharp MD PCP Reason for Visit * Reason Comments Follow-up eldon l ankle/t;m [id number]: Appt. Reminder (07/12/2017 06:14 PM) Phone Call - Responded "Yes" (Y=Answered - Yes) Encounter Details Care Team Description Date Type Department Adelaida Olivas MD [address] [facility] [address] [place] [address] [phone] 07/14/2017 Hist-Appointmen Aide Steeleedi c t Specialists [address] [facility] [address] [place] [address] Social History Date Tobacco Use Types Packs/Day [...]
--- OUTSIDE RECORDS SUMMARY | 2020-03-16 14:03 | XMS REPORT | Encounter Summary ---
Author Author [facility] Organization [facility] Address Unknown Phone Unavailable Care Team Providers Care Lifter Driver Name Role Phone Ebony Sharp MD PCP Encounter Details Care Team Description Date Type Department Jennifer Feng RN 06/08/2017 Telephone [facility] Primar y Care - [facility] [address] [facility] [address] [place], [place] [address] Social History Date Tobacco Use Types Packs/Day [...]
--- OUTSIDE RECORDS SUMMARY | 2020-03-16 14:03 | XMS REPORT | Encounter Summary ---
Author Author [facility] Organization [facility] Address Unknown Phone Unavailable Care Team Providers Care Lead Inspector Name Role Phone Ebony Sharp MD PCP Encounter Details Care Team Description Date Type Department Adelaida Olivas MD [address] [facility] [address] [place] [address] 06/24/2017 [facility] [address] [facility] [address] [place], [place] [address] Social History Date Tobacco Use Types Packs/Day [...] out. Ple ase call patient back at [phone]. Call taken by: Aline Joy on June 24, 2017 1:50 PM Follow-up for Phone Call Follow-up Details: I spoke with the patient and she will hand picker her Nucynta scr ipt. Follow-up by: Kari Young on June 24, 2017 3:24 PM documented in this encounter Plan of Treatment Not on filedocumented as of this encounter Visit Diagnoses Not on filedocumented in this encounter Additional Health Concerns Last Indicated Resolved Time Infection Onset Date 08/30/2017 04/19/2018 12:13 PM CDT Influenza 08/30/2017 08/30/2019 08/30/2019 1:09 PM DRAW STRING KNOTTER Influenza - Rule Out 08/30/2019 08/31/2019 09/17/2019 8:17 AM DRAW STRING KNOTTER RSV 08/31/2019 documented as of this encounter
--- OUTSIDE RECORDS SUMMARY | 2020-03-16 14:03 | XMS REPORT | Encounter Summary ---
Author Author [facility] Organization [facility] Address Unknown Phone Unavailable Care Team Providers Care Principal Examiner Name Role Phone Ebony Sharp MD PCP Encounter Details Care Team Description Date Type Department Adelaida Olivas MD [address] [facility] [address] [place], [place] [id number] 06/16/2017 Hist-Transcript Aide Orthopaedi c ion Encounter Specialists [address] [facility] [address] [place], [place] [address] Social History Date Tobacco Use Types Packs/Day [...] with calf squeeze. Impression LEFT ANKLE PAIN (IDY14-B11.572) NONUNION FRACTURE (NQF88-N77.8) NONUNION FRACTURE (TMA39-J40.8) Status post ankle revision, doing reasonably well [...] 1 po q daily VITAMIN D (ERGOCALCIFEROL) 53920 UNIT ORAL CAPSULE (ERGOCALCIFEROL) 1 po q [...] on 06/16/2017 Method used: [facility] [address] [place] [address] Ph: [phone] Fax: [phone] RxID: [id number] PERCOCET 7.5-325 MG TABS (OXYCODONE-ACETAMINOPHEN) 1-2 PO Q 4-6 Hours PRN Pain #40 x 0 Entered by: Alice Mello Authorized by: Adelaida Olivas MD Signed by: Alice Mello on 06/16/2017 Method used: Print then Give to Patient RxID: [id number] Vital Signs Ht: 62 in. Wt: 236 [...] CDT Influenza 08/30/2017 08/30/2019 08/30/2019 1:09 PM MOBILE THERAPIST Influenza - Rule Out 08/30/2019 08/31/2019 09/17/2019 8:17 AM MOBILE THERAPIST RSV 08/31/2019 documented as of this encounter
--- OUTSIDE RECORDS SUMMARY | 2020-03-16 14:03 | XMS REPORT | Encounter Summary ---
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 Care Centrifugal Casting Machine Operator Name Role Phone Ebony Sharp MD PCP Encounter Details Care Team Description Date Type Department Adelaida Olivas MD [address] [facility] [address] [place], [place] [address] 07/14/2017 Hist-Transcript Aide Orthopaedi c ion Encounter Specialists [address] [facility] [address] [place], [place] [id number] Social History Date Tobacco Use Types Packs/Day [...] * Juarez Noble - 07/14/2017 11:46 AM GLASS BLOWING LATHE OPERATOR - History of Present Illness Mrs. Patten [...] is pedis pulse. Impression LEFT ANKLE PAIN (UCG85-K19.572) CONTRACTURE OF ANKLE JOINT LEFT (VOV03-D81.572) PSEUDARTHROSIS AFTER FUSION OR ARTHRODESIS (IAA06-E14.0) Status post left ankle arthrodesis. Plan At [...] 1 po q daily VITAMIN D (ERGOCALCIFEROL) 88229 UNIT ORAL CAPSULE (ERGOCALCIFEROL) 1 po q [...] used: Print then Give to Patient RxID: [id number] NUCYNTA 50 MG ORAL TABLET (TAPENTADOL HCL) One PO Q 3-4 hours PRN pain #60 Unde fined x 0 Entered by: Jennifer Patino Authorized by: Adelaida Olivas MD Signed by: Jennifer Patino on 07/14/2017 Method used: Print then Give to Patient RxID: [id number] Vital Signs Ht: 62 in. Wt: 236 [...] CDT Influenza 08/30/2017 08/30/2019 08/30/2019 1:09 PM GLASS BLOWING LATHE OPERATOR Influenza - Rule Out 08/30/2019 08/31/2019 09/17/2019 8:17 AM GLASS BLOWING LATHE OPERATOR RSV 08/31/2019 documented as of this encounter
--- OUTSIDE RECORDS SUMMARY | 2020-03-16 14:03 | XMS REPORT | Encounter Summary ---
Author Author [facility] Organization [facility] Address Unknown Phone Unavailable Care Team Providers Care Promotions Associate Name Role Phone Ebony Sharp MD PCP Reason for Referral * MRI/CAT/PET Scan (Routine) Referred By Contact Referred To Contact Status Reason Specialty Diagnoses / Procedures Adelaida Olivas MD [address] [facility] [address] [place] [address] [place] [address] Closed Radiology Diagnoses Left ankle pain Ankle joint contracture, 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 P rocedures CT Ankle wo contrast left Encounter Details Care Team Description Date Type Department Adelaida Olivas MD [address] [facility] [address] [place], [place] [phone] Left ankle pain (Primary Dx); Ankle joint contracture, left; Pseudarthrosis after fusion or arthrodesis 07/19/2017 Transcribe [facility] [address] [place], [place] [address] Social History Date Tobacco Use Types Packs/Day [...] Ankle wo contrast left (08/13/2017 2:[address]GE) Specimen Impressions Performed At 1. Status post revision tibiotalar arthrodesis. No evidence of LEVI hardware-related complication. 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 2. Subcutaneous edema/fluid particula rly along the lateral aspect of the distal calf and ankle. No evidence of localized drainable fluid collection on this noncontrast enhanced study. READING SITE: [facility] Imaging Narrative Performed At Patient: ISIAH BENÍTEZ Sex#: F # [id number] Jose#: [id number] Location: [facility] CT Procedure Requested: [id number] CT ANKLE WO CONTRAST LEFT Reason for [...] Rad Results In - 08/13/2017 3:[address] JUDGE Patient: ISIAH BENÍTEZ Sex#: Paulina # [id number] Jose#: [id number] Location: [facility] CT Procedure Requested: [id number] CT ANKLE WO CONTRAST LEFT Reason for [...] on this noncontrast enhanced study. READING SITE: [facility] Imaging Performing Organization Address City/State/Zipnyde Ph one Number [place] documented in this encounter Visit Diagnoses Diagnosis Left ankle pain Pain in joint, ankle and foot Ankle joint contracture, left Pseudarthrosis after fusion or arthrode sis Arthrodesis status documented in this encounter Additional Health Concerns Last Indicated Resolved Time Infection Onset Date 08/30/2017 04/19/2018 12:13 PM CDT Influenza 08/30/2017 08/30/2019 08/30/2019 1:[address] Influenza - Rule Out 08/30/2019 08/31/2019 09/17/2019 8:[address] JUDGE RSV 08/31/2019 documented as of this encounter
--- OUTSIDE RECORDS SUMMARY | 2020-03-16 14:03 | XMS REPORT | Encounter Summary ---
Author Author [facility] Organization [facility] Address Unknown Phone Unavailable Care Team Providers Care Pattern Setter Name Role Phone Ebony Sharp MD PCP Encounter Details Care Team Description Date Type Department Ebony Sharp MD [address] [facility] [address] [place], [place] [address] Type 2 diabetes mellitus with hyperglyce prasanna, 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) 07/09/2017 Lab [facility] Primar y Care - [place] [address] [facility] [address] [facility] [place], [place] [address] Social History Date Tobacco Use Types Packs/Day [...] Ebony Sharp MD - 07/09/2017 12:50 PM PHYSICAL THERAPY ASSISTANT The a1c is much better when you lose weight! ICAL THERAPY ASSISTANT documented in this encounter Plan of Treatment Not on filedocumented as of this encounter Procedures Comments Procedure Name Priority Date/Time Associated Diag nosis HEMOGLOBIN A1C Routine 07/09/2017 Type 2 diabetes mellitus 12:57 PM PHYSICAL THERAPY ASSISTANT with hyperglycemia, 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) documented in this encounter Results * Hemoglobin A1C (07/09/2017 12:57 PM PHYSICAL THERAPY ASSISTANT) Hemoglobin A1C 7.5 (H) 4.0 - 5.6 % [facility] Comment: REGIONAL Non-diabetic 4.0 - LABORATORIES 5.6 % Prediabetes 5.7 - 6.4 % Diabetes >= 6.5 % Specimen Blood Performing Organization Address City/State/Zipcode Ph one Number [facility] [address] [address] LABORATORIES documented in this encounter Visit Diagnoses Diagnosis Type 2 diabetes mellitus with hyperglyc emia, 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) documented in this encounter
--- OUTSIDE RECORDS SUMMARY | 2020-03-16 14:03 | XMS REPORT | Encounter Summary ---
Author Author [facility] Organization [facility] Address Unknown Phone Unavailable Care Team Providers Care Artist Blacksmith Name Role Phone Ebony Sharp MD PCP Reason for Visit * Reason Comments Follow-up Margot left ankle/ 06/09/2017 bcTVX: Appt. Reminder (06/14/2017 06:41 PM) Phone Call - Responded "Yes" (Y=Answere d - Yes) Encounter Details Care Team Description Date Type Department Adelaida Olivas MD [address] [facility] [address] [place] [address] [phone] 06/16/2017 Hist-Appointmen Aide Steeleedi hanny [facility]ore Specialists [address] [facility] [address] [place] [address] Social History Date Tobacco Use Types Packs/Day [...]
--- OUTSIDE RECORDS SUMMARY | 2020-03-16 14:03 | XMS REPORT | Encounter Summary ---
Author Author [facility] Organization [facility] Address Unknown Phone Unavailable Care Team Providers Care Svp Monetization Name Role Phone Ebony Sharp MD PCP Encounter Details Care Team Description Date Type Department Adelaida Olivas MD [address] [facility] [address] [place] [address] [phone] 07/14/2017 Hist-Other [facility] [address] [place] [address] Social History Date Tobacco Use Types Packs/Day [...] nosis XR ANKLE Routine 07/14/2017 11:15 AM LOAN CLERK documented in this encounter Results * XR Ankle (07/14/2017 11:15 AM LOAN CLERK) Specimen Performing Organization Address City/State/Zipcode Ph one Number [place] documented in this encounter Visit Diagnoses Not on filedocumented in this encounter Additional Health Concerns Last Indicated Resolved Time Infection Onset Date 08/30/2017 04/19/2018 12:13 PM CDT Influenza 08/30/2017 documented as of this encounter
--- OUTSIDE RECORDS SUMMARY | 2020-03-16 14:03 | XMS REPORT | Encounter Summary ---
Author Author [facility] Organization [facility] Address Unknown Phone Unavailable Care Team Providers Care Billposter Name Role Phone Ebony Sharp MD PCP Reason for Visit * Reason Comments Follow-up 3 month FU Encounter Details Care Team Description Date Type Department Ebony Sharp MD [address] [facility] [address] [place] [address] Type 2 diabetes mellitus with hyperglyce prasanna, 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) (Primary Dx); COPD exacerbation (HCC); SASHA (obstructive sleep apnea); Benign essential HTN; Hyperlipidemia, unspecified hyperlipidemia type; Routine adult health maintenance 07/09/2017 Office Visit [facility] [address] [facility] [address] [place] [address] Social History Date Tobacco Use [...] Comments Vital Sign 136/84 07/09/2017 12:16 PM REPORTS ANALYSIS MANAGER Blood Pressure 74 07/09/2017 12:16 PM REPORTS ANALYSIS MANAGER Pulse - - Temperature - - Respiratory Rate 95% 07/09/2017 12:16 PM REPORTS ANALYSIS MANAGER Oxygen Saturation - - Inhaled Oxygen Concentration 93.9 kg (207 lb) 07/09/2017 12:16 PM REPORTS ANALYSIS MANAGER Weight 157.5 cm (5' 2") 07/09/2017 12:16 PM REPORTS ANALYSIS MANAGER Height 37.86 07/09/2017 12:16 PM REPORTS ANALYSIS MANAGER Body Mass Index documented in this encounter Progress Notes * Ebony Sharp MD - 07/09/2017 11:30 AM REPORTS ANALYSIS MANAGER CC: Follow-up (3 month FU ) HPI : aCren Patten is a 66 y.o. female who presents with complaints of Follow-up (3 month FU ) 1. Surgery clearance - she is going to have bariatric surgery at [facility] in August. She is excited about [...] Also need to keep in mind her hoahaoism - Jehovah Witness - she will not [...] to have bariatric surgery at [facility] august. She will need to have her blood sugars, blood pressures, O2 closely monitored with surgery, however, with a normal stress test and 0 calcium score, I do think that she is low-intermediate risk for the intermediate-high risk surg patti. Also need to keep in mind her hoahaoism - Jehovah Witness - she will not be able to take blood products. Ebony Sharp MD RTS ANALYSIS MANAGER documented in this encounter Plan of Treatment Not on filedocumented as of this encounter Results * Hemoglobin A1C (07/09/2017 12:57 PM REPORTS ANALYSIS MANAGER) Hemoglobin A1C 7.5 (H) 4.0 - 5.6 % [place] Comment: REGIONAL Non-diabetic 4.0 - LABORATORIES 5.6 % Prediabetes 5.7 - 6.4 % Diabetes >= 6.5 % Specimen Blood Performing Organization Address City/State/Zipcode Ph one Number [address] [address] LABORATORIES documented in this encounter Visit Diagnoses [...]
--- OUTSIDE RECORDS SUMMARY | 2020-03-16 14:03 | XMS REPORT | Encounter Summary ---
Author Author [facility] Organization [facility] Address Unknown Phone Unavailable Care Team Providers Care Spindle Setter Name Role Phone Ebony Sharp MD PCP Reason for Visit * Reason Comments COPD feels like her chest is mor e tight and having more fatigue for the last few days Encounter Details Care Team Description Date Type Department Samuel Lee, INDUSTRIAL STAFF NURSE [address] [facility] [address] [place] [address] Shortness of breath (Primary Dx) 06/11/2017 Office Visit [facility] [address] [facility] [address] [place] [address] Social History Date Tobacco Use [...] not having energy. 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 Today's [...] 180 tablet 1 naloxone (NARCAN) 4 mg/actuation [place] Use 1 spray in each nostril as [...]
--- OUTSIDE RECORDS SUMMARY | 2020-03-16 14:03 | XMS REPORT | Encounter Summary ---
Author Author [facility] Organization [facility] Address Unknown Phone Unavailable Care Team Providers Care Revenue Cycle Consultant Name Role Phone Ebony Sharp MD PCP Encounter Details Care Team Description Date Type Department Adelaida Olivas MD [address] [facility] [address] [place] [address] [phone] 06/17/2017 Transcribe [facility] [address] [place] [address] Social History Date Tobacco Use Types Packs/Day [...] Influenza 08/30/2017 08/30/2019 08/30/2019 1:09 PM ASSOCIATE PROFESSOR PHYSICIAN Influenza - Rule Out 08/30/2019 08/31/2019 09/17/2019 8:17 AM ASSOCIATE PROFESSOR PHYSICIAN RSV 08/31/2019 documented as of this encounter
--- OUTSIDE RECORDS SUMMARY | 2020-03-16 14:03 | XMS REPORT | Encounter Summary ---
Author Author [facility] Organization [facility] Address Unknown Phone Unavailable Care Team Providers Care Actuarial Science Professor Name Role Phone Ebony Sharp MD PCP Encounter Details Care Team Description Date Type Department Adelaida Olivas MD [address] [facility] [address] [place] [address] [facility]/10[facility]2017 [facility] [address] [facility] [address] [place], [place] [id number] Social History Date Tobacco Use Types Packs/Day [...] her Oxycodone. Plea call patient back at [phone]. Call taken by: Alec Jimenez on June [...] used: Print then Give to Patient RxID: [id number] OXYCODONE HCL 5 MG ORAL TABLET (OXYCODONE HCL) 1 po q 8 hours not to exceed 3 pe r day #0 x 0 Entered by: Rg Lopez Authorized by: Adelaida Olivas MD Signed by: Rg Lopez on 06/10/2017 Method used: Print then Give to Patient RxID: [id number] OXYCODONE HCL 5 MG ORAL TABLET (OXYCODONE HCL) 1 po q 8 hours not to exced 3 per day #40 Tablet x 0 Entered by: Rg Loepz Authorized by: Adelaida Olivas MD Signed by: Rg Lopez on 06/10/2017 Method used: Print then Give to Patient RxID: [id number] documented in this encounter Plan of Treatment Not on filedocumented as of this encounter Visit Diagnoses Not on filedocumented in this encounter Additional Health Concerns Last Indicated Resolved Time Infection Onset Date 08/30/2017 04/19/2018 12:13 PM CDT Influenza 08/30/2017 08/30/2019 08/30/2019 1:09 PM POWER TOOL REPAIRER Influenza - Rule Out 08/30/2019 08/31/2019 09/17/2019 8:17 AM POWER TOOL REPAIRER RSV 08/31/2019 documented as of this encounter
--- OUTSIDE RECORDS SUMMARY | 2020-03-16 14:03 | XMS REPORT | Encounter Summary ---
Author Author [facility] Organization [facility] Address Unknown Phone Unavailable Care Team Providers Care Mobile Nurse Name Role Phone Ebony Sharp MD PCP Encounter Details Care Team Description Date Type Department Adelaida Olivas MD [address] [facility] [address] [place] [address] [phone] 06/16/2017 Hist-Other [facility] [address] [place] [address] Social History Date Tobacco Use Types Packs/Day [...]
--- OUTSIDE RECORDS SUMMARY | 2020-03-16 14:03 | XMS REPORT | Encounter Summary ---
Author Author [facility] Organization [facility] Address Unknown Phone Unavailable Care Team Providers Care Director Inpatient Headache Program Name Role Phone Ebony Sharp MD PCP Encounter Details Care Team Description Date Type Department Adelaida Olivas MD [address] [facility] [address] [place] [address] 06/07/2017 [facility] [address] [facility] [address] [place] [address] Social History Date Tobacco Use [...] the patient. Please call Esperanza back at [phone] Call taken by: Daphne Roa on June 07, 2017 11:02 AM Follow-up for Phone Call Follow-up Details: I spoke with the patient's daughter and she said the patient got a car and needs a new placard because she did not use the form we gave her o n 04/09. The patients daughter will berry picker the new paperwork in the office. Follow-up by: Rg Lopez on June 07, 2017 11:43 AM documented in this encounter Plan of Treatment Not on filedocumented as of this encounter Visit Diagnoses Not on filedocumented in this encounter Additional Health Concerns Last Indicated Resolved Time Infection Onset Date 08/30/2017 04/19/2018 12:13 PM CDT Influenza 08/30/2017 08/30/2019 08/30/2019 1:09 PM GREEN MARKETING SPECIALIST Influenza - Rule Out 08/30/2019 08/31/2019 09/17/2019 8:17 AM GREEN MARKETING SPECIALIST RSV 08/31/2019 documented as of this encounter
--- OUTSIDE RECORDS SUMMARY | 2020-03-16 14:03 | XMS REPORT | Encounter Summary ---
Author Author [facility] Organization [facility] Address Unknown Phone Unavailable Care Team Providers Care Electrical Maintenance Worker Name Role Phone Ebony Sharp MD PCP Reason for Visit * Reason Comments Other Encounter Details Care Team Description Date Type Department Ebony Sharp MD [address] [facility] [address] [place] [address] Other 07/10/2017 Refill [facility] - [facility] [address] [facility] [address] [place], [place] [id number] Social History Date Tobacco Use Types Packs/Day [...]
--- OUTSIDE RECORDS SUMMARY | 2020-03-16 14:03 | XMS REPORT | Encounter Summary ---
Author Author [facility] Organization [facility] Address Unknown Phone Unavailable Care Team Providers Care Tailings Worker Name Role Phone Ebony Sharp MD PCP Encounter Details Care Team Description Date Type Department Adelaida Olivas MD [address] [facility] [address] [place] [address] [phone] 05/27/2017 Hist-Other [facility] Hospit [facility] [address] [place] [address] Social History Date Tobacco Use Types Packs/Day [...]
--- OUTSIDE RECORDS SUMMARY | 2020-03-16 14:03 | XMS REPORT | Encounter Summary ---
Author Author [facility] Organization [facility] Address Unknown Phone Unavailable Care Team Providers Care Short Piece Handler Name Role Phone Ebony Sharp MD PCP Reason for Referral * Diagnostic Imaging (Routine) Referred By Contact Referred To Contact Status Reason Specialty Diagnoses / Procedures Adelaida Olivas MD [address] [facility] [address] [place] [address] Closed Diagnoses Left ankle pain P rocedures US Venous Duplex Lower Extremity left Reason for Visit * Diagnostic Imaging (Routine) Referred By Contact Referred To Contact Status Reason Specialty Diagnoses / Procedures Adelaida Olivas MD [address] [facility] [address] [place] [address] Closed Diagnoses Left ankle pain P rocedures US Venous Duplex Lower Extremity left Encounter Details Care Team Description Date Type Department Adelaida Olivas MD [address] [facility] [address] [place], [place] [id number] Left ankle pain 06/16/2017 [facility] [address] [place], [place] [id number] Social History Date Tobacco Use Types Packs/Day [...] of LEVI deep venous thrombosis. READING SITE: [facility] NOTE: Parts of this report were generated wit [employer]at[employer] voice recognition software. J Digit Imagin2010;24(4):724-8. Narrative Performed At Patient: ISIAH BENÍTEZ Sex#: F # [id number] Jose#: [id number] Location: [facility] [place] Procedure Requested: [id number] US VENOU S DUPLEX LOWER EXTREMITY LEFT [...] ISIAH BENÍTEZ Sex#: F # [id number] Jose#: [id number] Location: [facility] [place] Procedure Requested: [id number] US VENOUS DUPLEX LOWER EXTREMITY LEFT Reason [...] evidence of deep venous thrombosis. READING SITE: [facility] NOTE: Parts of this report were generated with voice recognition software. J Digit Imagin2010;24(4):724-8. Performing Organization Address City/State/Zipcode Ph one Number LEVI documented in this encounter Visit Diagnoses Diagnosis Left ankle pain Pain in joint, ankle and foot documented in this encounter
--- OUTSIDE RECORDS SUMMARY | 2020-03-16 14:03 | XMS REPORT | Encounter Summary ---
Author Author [facility] Organization [facility] Address Unknown Phone Unavailable Care Team Providers Care Curing Oven Tender Name Role Phone Ebony Sharp MD PCP Encounter Details Care Team Description Date Type Department Adelaida Olivas MD [address] [facility] [address] [place] [address] [facility]/25[facility] [address] [facility] [address] [place] [address] Social History Date Tobacco Use [...] for Nucynta. Please call patient back at [phone] Call taken by: Daphne Roa on June 25, 2017 3:26 PM Follow-up for Phone Call Follow-up Details: Received prior authorization request from Felisha ) for Nucynta. Submitted on [employer]. Called patient and let her know we [...] Jimenez on June 28, 2017 9:15 AM TOP ARCHITECT documented in this encounter Plan of Treatment Not on filedocumented as of this encounter Visit Diagnoses Not on filedocumented in this encounter Additional Health Concerns Last Indicated Resolved Time Infection Onset Date 08/30/2017 04/19/2018 12:13 PM CDT Influenza 08/30/2017 08/30/2019 08/30/2019 1:09 PM DESKTOP ARCHITECT Influenza - Rule Out 08/30/2019 08/31/2019 09/17/2019 8:17 AM DESKTOP ARCHITECT RSV 08/31/2019 documented as of this encounter
--- OUTSIDE RECORDS SUMMARY | 2020-03-16 14:03 | XMS REPORT | Encounter Summary ---
Author Author [facility] Organization [facility] Address Unknown Phone Unavailable Care Team Providers Care Fixture Builder Name Role Phone Ebony Sharp MD PCP Reason for Visit * Reason Comments Other Encounter Details Care Team Description Date Type Department Ebony Sharp MD [address] [facility] [address] [place], [place] [id number] Other 06/08/2017 Refill [facility] - [facility] [address] [facility] [address] [place], [place] [phone] Social History Date Tobacco Use Types Packs/Day [...] CDT Influenza 08/30/2017 08/30/2019 08/30/2019 1:09 PM SUPPORT TEAM MEMBER Influenza - Rule Out 08/30/2019 08/31/2019 09/17/2019 8:17 AM SUPPORT TEAM MEMBER RSV 08/31/2019 documented as of this encounter
--- OUTSIDE RECORDS SUMMARY | 2020-03-16 14:03 | XMS REPORT | Encounter Summary ---
Author Author [facility] Organization [facility] Address Unknown Phone Unavailable Care Team Providers Care Cafeteria Helper Name Role Phone Ebony Sharp MD PCP Reason for Visit * Reason Comments Other Encounter Details Care Team Description Date Type Department Ebony Sharp MD [address] [facility] [address] [place], [place] [phone] Other 06/25/2017 Refill [facility] - [facility] [address] [facility] [address] [place], [place] [phone] Social History Date Tobacco Use Types Packs/Day [...] CDT Influenza 08/30/2017 08/30/2019 08/30/2019 1:09 PM PLASTICATOR Influenza - Rule Out 08/30/2019 08/31/2019 09/17/2019 8:17 AM PLASTICATOR RSV 08/31/2019 documented as of this encounter
--- OUTSIDE RECORDS SUMMARY | 2020-03-16 14:03 | XMS REPORT | Encounter Summary ---
Author Author [facility] Organization [facility] Address Unknown Phone Unavailable Care Team Providers Care Watch And Clock Repair Clerk Name Role Phone Ebony Sharp MD PCP Reason for Visit * Reason Comments Other Encounter Details Care Team Description Date Type Department Ebony Sharp MD [address] [facility] [address] [place], [place] [id number] Other 07/14/2017 Refill [facility] [address] [facility] [address] [place], [place] [address] Social History Date Tobacco Use Types Packs/Day [...] CDT Influenza 08/30/2017 08/30/2019 08/30/2019 1:09 PM ANCHOR TACKER Influenza - Rule Out 08/30/2019 08/31/2019 09/17/2019 8:17 AM ANCHOR TACKER RSV 08/31/2019 documented as of this encounter
--- OUTSIDE RECORDS SUMMARY | 2020-03-16 14:03 | XMS REPORT | Encounter Summary ---
Author Author [facility] Organization [facility] Address Unknown Phone Unavailable Care Team Providers Care System Integration Engineer Name Role Phone Ebony Sharp MD PCP Reason for Visit * Reason Comments Medication Refill Encounter Details Care Team Description Date Type Department Jani Schultz LPN Medication Refill 06/24/2017 Refill [facility] - [facility] [address] [facility] [address] [place], [place] [id number] Social History Date Tobacco Use Types Packs/Day [...]
--- OUTSIDE RECORDS SUMMARY | 2020-03-16 14:04 | XMS REPORT | Encounter Summary ---
Author Author [facility] Organization [facility] Address Unknown Phone Unavailable Care Team Providers Care Athletic Agent Name Role Phone Ebony Sharp MD [...] Type Department Jason Guillory, DO [address] [facility] [place] [address] Chronic bronchitis, unspecified chronic bronchitis type (HCC) (Primary Dx); Dyspnea, unspecified type 05/10/2017 Emergency [facility] [address] [facility] [place] [address] Social History Date Tobacco Use Types [...] through Care Everywhere.* BRONCHITIS, ANTIOBIOTIC TREATMENT (ADULT) (INDONESIAN) documented in this encounter Medications at Time [...] 12:20 PM CDT Pt called out to [facility] station, RN to bedside and pt [...] ED PROCEDURE BASIC - ECG INTERPRET 05/10/2017 [facility] History Chief Complaint Patient presents [...] as she is postop from surgery by [facility]. She is currently using Lovenox for [...] ANKLE ARTHRODESIS; Surgeon: Adelaida Olivas MD; Location: [facility] Main OR; Service: Orthopedics; Later ality: [...] ED Physician in the absence of a automatic die cutting machine operator: yes Previous ECG: Previous ECG: Compared to [...] opacity likely related to atelectasis READING SITE: [facility] CT Angio Chest (Results Pending) Ebony Sharp MD [address] [facility] [address] [facility] [address] Schedule an appointment as soon as [...] disease. 2. Bilateral subsegmental atelectasis. READING SITE: [facility] XR Chest 2 views (PA and lateral) Final Result No focal consolidation. Left basilar atelectatic opacity likely related to atelectasis READING SITE: [facility] discussed the CT results with the patient [...] N 2. Bilateral subsegmental atelectasis. READING SITE: [facility] Narrative Performed At Patient: ISIAH BENÍTEZ Sex#: F # 1950 Jose#: [id number] Location: [facility] ED - Procedure Requested: [id number] CT ANGIO CHEST Reason for Exam: soa [...] ISIAH BENÍTEZ Sex#: Paulina # 1950 Jose#: [id number] Location: [facility] SED-27 Procedure Requested: [id number] CT ANGIO CHEST Reason for Exam: soa [...] ase. 2. Bilateral subsegmental atelectasis. READING SITE: [facility] Performing Organization Address City/State/Zipcode Ph one Number LEVI * ED Procedure Basic - ECG Interpret (05/10/2017 2:50 PM CDT) Narrative Performed At Jason Guillory DO 05/10/2017 2:50 P M ECG Interpret Date/Time: 05/10/2017 2:47 PM Performed by: JASON GUILLORY Authorized by: JASON GUILLORY ECG reviewed by ED Physician in the abs ence of a automatic die cutting machine operator: yes Previous ECG: Previous ECG: Compared to [...] SIMS likely related to atelectasis READING SITE: [facility] Narrative Performed At Patient: ISIAH BENÍTEZ Sex#: F # 1950 Jose#: [id number] Location: [facility] ED SED-27 Procedure Requested: [id number] XR CHEST 2 VIEWS (PA AND LATERAL) [...] ISIAH BENÍTEZ Sex#: Paulina # 1950 Jose#: [id number] Location: [facility] ED [facility]- Procedure Requested: [id number] XR CHEST 2 VIEWS (PA AND LATERAL) [...] opacity likely related to atelectasis READING SITE: [facility] Performing Organization Address [facility] one Number LEVI * Troponin (05/10/2017 11:50 AM CDT) Pathologist [facility] Troponin <0.01 0.00 - 0.03 ng/mL [place] Comment: ALBERT AGUSTIN Troponin Value [facility] Interpretation 0.00 - 0.03 Healthy 0.04 - 0.12 Increased Cardiac Risk >0.12 Myocardial Infarction Troponin may not become elevated until 6 to 8 hours after onset of symptoms. Specimen Blood Performing Organization Address [facility] one Number [place] [facility] [address] [place] [address] [facility] [place] SW[place] [address] [facility] [address], [facility] * D Dimer (05/10/2017 11:50 AM CDT) Pathologist [facility] D Dimer 1.85 (H)Comment: Cutoff value 0.00 - 0.40 ug/m L [facility] for exclusion of venous FEU ALBERT AGUSTINS thromboembolism is <0.40 ug/mL [facility] FEU. Specimen Blood Performing Organization Address City/State/[facility] Ph one Number [place] SWAN[facility] [address] [facility], [place] [id number] [facility] [place] SWAN[place] [address] [place] [address], [facility] * Comprehensive Metabolic Panel (05/10/2017 11:50 AM CDT) [facility] Signature Sodium 140 133 - 147 MEQ/L [facility] Potassium 4.0 3.5 - 5.3 MEQ/L [facility] Chloride 102 96 - 112 MEQ/L [place] [facility] Carbon Dioxide 29 20 - 32 MEQ/L [facility] Anion Gap 9 5 - 17 [place] [facility] Calcium 8.9 8.4 - 10.5 mg/dL [facility] Glucose 158 (H) 70 - 100 mg/dL [facility] Protein Total 7.3 6.0 - 8.2 g/dL [facility] Serum [facility] Albumin 4.0 3.5 - 5.0 g/dL [facility] Alkaline 99 42 - 140 IU/L [facility] Phosphatase [facility] Alanine 28 13 - 69 IU/L [place] Aminotransferas [facility] e [facility] Aspartate 22 15 - 46 IU/L [place] Aminotransferas [facility] e [facility] Bilirubin Total 0.3 0.2 - 1.3 mg/dL [facility] Blood Urea 15 7 - 26 mg/dL [facility] Nitrogen [facility] Creatinine 0.8 0.4 - 1.1 [...] [place] AG[facility] [address] [employer] [facility], [place] [id number] [facility] [place] AGUST[place] [address] [place] [employer] [place] [address], [facility] * CBC and Diff (manual diff if necessary) (05/10/2017 11:50 AM CDT) [facility] WBC 10.17 4.00 - 11.00 TH/uL [place] Eugenia [facility] RBC 3.51 (L) 4.00 - 5.00 MIL/uL [place] [facility] Hemoglobin 11.5 (L) 12.0 - 15.0 g/dL [place] ZAZUETAS [facility] Hematocrit 36 36 - 45 % [place] [facility] MCV 104 (H) 80 - 99 fL [facility] MCH 33 27 - 34 pg [facility] MCHC 32 32 - 36 % [facility] [facility] RDW 14.0 9.0 - 14.5 % [facility]UL [facility] Platelet Count 152 140 - 400 TH/uL [place] [facility] MPV 9.9 9.4 - 12.3 fL [facility] ALBERT ZAZUETAEurotriS [facility] % Neutrophils 67 45 - 78 % [place] AG[facility] %Lymphocytes 22 15 - 47 % [place] SW[facility] %Monocytes 8 0 - 12 % [place] [facility] %Eosinophils 3 0 - 7 % MEHUL SWANSON [facility] %Basophils 0 0 - 2 % EMHUL SWANSON [facility] # Granulocytes 6.85 (H) 1.7 - 6.8 TH/uL [place] SW[facility] # Lymphocytes 2.19 1.0 - 3.3 TH/uL [facility] # Monocytes 0.84 0.2 - 0.9 TH/uL MEHUL ZAZUETAEugenia [facility] # Eosinophils 0.26 0.0 - 0.4 TH/uL KATE[facility] # Basophils 0.03 0.0 - 0.1 TH/uL [facility] PRICE MARBINEug[facility] Specimen Blood Performing Organization Address City/State/[facility] Servicescode Ph one Number [place] SWANSON [address] [place] [address] [facility] [place] SWAN[place] [address] [place] [facility] [place] [address], [facility] * Electrocardiogram (ECG) (05/10/2017 11:18 AM CDT) Specimen Narrative Performed At ANDREW [facility] ED Test Date: 2017-05-10 Pat Name: ISIAH BENÍTEZ Department: ERS Room: SED Gender: Female Brake Lining Finisher: [id number] : 1950 Requested By: JASON GUILLORY Order Number: [id number] Jackie MD: Measurements Intervals [place] Rate: 116 P: 57 KS: 144 QRS: 59 QRSD: 100 T: 44 QT: 340 QTc: 473 Interpretive Statements SINUS TACHYCARDIA Procedure Note Interface, External Ris In - 05/10/2017 11:23 AM CDT [facility] ED Test Date: 2017-05-10 Pat Name: ISIAH BENÍTEZ Department: ERS Room: SED Gender: Female Brake Lining Finisher: [id number] : 1950 Requested By: JASON GUILLORY Order Number: [id number] Jackie MD: Measurements Intervals [place] Rate: 116 P: 57 KS: 144 QRS: 59 QRSD: 100 T: 44 [...]
--- OUTSIDE RECORDS SUMMARY | 2020-03-16 14:04 | XMS REPORT | Encounter Summary ---
Author Author [facility] Organization [facility] Address Unknown Phone Unavailable Care Team Providers Care Putter In Name Role Phone Ebony Sharp MD PCP Encounter Details Care Team Description Date Type Department Adelaida Olivas MD [address] [facility] [address] [place], [place] [address] 04/15/2017 Hist-Transcript Aide Orthopaedi c ion Encounter Specialists [address] [facility] [address] [place], [place] [address] Social History Date Tobacco Use Types Packs/Day [...] her surgical incis ions. Impression NONUNION FRACTURE ([id number]-Z31.8) Status post tibiotalar arthrodesis, doing reasonably well. [...] 1 po q daily VITAMIN D (ERGOCALCIFEROL) 35685 UNIT CAPS (ERGOCALCIFEROL) 1 po q weekly [...] Mercado on 04/15/2017 Method used: [facility] [address] [place] [address] Ph: [phone] Fax: [phone] RxID: [id number] OXYCONTIN 10 MG T12A (OXYCODONE HCL) 1 tablet PO BID PRN #30 x 0 Entered by: Kayley Mercado Authorized by: Adelaida Olivas MD Signed by: Kayley Mercado on 04/15/2017 Method used: Print then Give to Patient RxID: [id number] OXYCODONE HCL 10 MG TABS (OXYCODONE HCL) one PO Q 6 hours prn pain #60 x 0 Entered by: Kayley Mercado Authorized by: Adelaida Olivas MD Signed by: Kayley Mercado on 04/15/2017 Method used: Print then Give to Patient RxID: [id number] OXYCONTIN 10 MG T12A (OXYCODONE HCL) 1 tablet PO BID PRN #0 x 0 Entered by: Kayley Mercado Authorized by: Adelaida Olivas MD Signed by: Kayley Mercado on 04/15/2017 Method used: Print then Give to Patient RxID: [id number] OXYCODONE HCL 10 MG TABS (OXYCODONE HCL) one PO Q 6 hours prn pain #40 Tablet U n x 0 Entered by: Kayley Mercado Authorized by: Adelaida Olivas MD Signed by: Kayley Mercado on 04/15/2017 Method used: Print then Give to Patient RxID: [id number] Vital Signs Ht: 62 in. Wt: 236 [...] CDT Influenza 08/30/2017 08/30/2019 08/30/2019 1:09 PM SOCIAL WORKER ASSISTANT Influenza - Rule Out 08/30/2019 08/31/2019 09/17/2019 8:17 AM SOCIAL WORKER ASSISTANT RSV 08/31/2019 documented as of this encounter
--- OUTSIDE RECORDS SUMMARY | 2020-03-16 14:04 | XMS REPORT | Encounter Summary ---
Author Author [facility] Organization [facility] Address Unknown Phone Unavailable Care Team Providers Care Maintenance Assistant Name Role Phone Ebony Sharp MD PCP Reason for Visit * Reason Comments Follow-up Margot lt 04-15-17 HKW TVX: Appt. Reminder (04/27/2017 06:18 PM) Phone Call - Message Delivered (X=Answering [place]) Encounter Details Care Team Description Date Type Department Adelaida Olivas MD [address] [facility] [address] [place] [address] [phone] 04/29/2017 Hist-Appointmen Aide Steeleedi hanny moore Specialists [address] [facility] [address] [place] [address] Social History Date Tobacco Use Types Packs/Day [...]
--- OUTSIDE RECORDS SUMMARY | 2020-03-16 14:04 | XMS REPORT | Encounter Summary ---
Author Author [facility] Organization [facility] Address Unknown Phone Unavailable Care Team Providers Care Finished Metal Repairer Name Role Phone Ebony Sharp MD PCP Encounter Details Care Team Description Date Type Department Adelaida Olivas MD [address] [facility] [address] [place], [place] [address] 05/27/2017 Hist-Transcript Aide Orthopaedi c ion Encounter Specialists [address] [facility] [address] [place], [place] [address] Social History Date Tobacco Use Types Packs/Day [...] complaints. 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 [...] 1 po q daily VITAMIN D (ERGOCALCIFEROL) 79574 UNIT CAPS (ERGOCALCIFEROL) 1 po q weekly [...] used: Print then Give to Patient RxID: [id number] CELEBREX 200 MG CAPS (CELECOXIB) 1 pill Daily with food #30[Unspecified] x 0 Entered by: Jennifer Patino Authorized by: Adelaida Olivas MD Signed by: Jennifer Patino on 05/27/2017 Method used: Electronically to [facility]* (retail) [address] [place] [address] Ph: [phone] Fax: [phone] RxID: [id number] Vital Signs Ht: 62 in. Wt: 236 [...] CDT Influenza 08/30/2017 08/30/2019 08/30/2019 1:09 PM TREE DRILLER Influenza - Rule Out 08/30/2019 08/31/2019 09/17/2019 8:17 AM TREE DRILLER RSV 08/31/2019 documented as of this encounter
--- OUTSIDE RECORDS SUMMARY | 2020-03-16 14:04 | XMS REPORT | Encounter Summary ---
Author Author [facility] Organization [facility] Address Unknown Phone Unavailable Care Team Providers Care Serger Name Role Phone Ebony Sharp MD PCP Encounter Details Care Team Description Date Type Department Adelaida Olivas MD [address] [facility] [address] [place] [address] 04/19/2017 [facility] [address] [facility] [address] [place], [place] [address] Social History Date Tobacco Use Types Packs/Day [...] something else? Please call Aaron back at [phone] Call taken by: Daphne Roa on April [...] CDT Influenza 08/30/2017 08/30/2019 08/30/2019 1:09 PM CAREER REPRESENTATIVE Influenza - Rule Out 08/30/2019 08/31/2019 09/17/2019 8:17 AM CAREER REPRESENTATIVE RSV 08/31/2019 documented as of this encounter
--- OUTSIDE RECORDS SUMMARY | 2020-03-16 14:04 | XMS REPORT | Encounter Summary ---
Author Author [facility] Organization [facility] Address Unknown Phone Unavailable Care Team Providers Care Control Officer Manager Name Role Phone Ebony Sharp MD PCP Encounter Details Care Team Description Date Type Department Adelaida Olivas MD [address] [facility] [address] [place] [address] [phone] 04/29/2017 Hist-Other [facility] [address] [place] [address] Social History Date Tobacco Use Types Packs/Day [...]
--- OUTSIDE RECORDS SUMMARY | 2020-03-16 14:04 | XMS REPORT | Encounter Summary ---
Author Author [facility] Organization [facility] Address Unknown Phone Unavailable Care Team Providers Care Trace Evidence Technician Name Role Phone Ebony Sharp MD PCP Encounter Details Care Team Description Date Type Department Adelaida Olivas MD [address] [facility] [address] [place] [address] [phone] 05/27/2017 Hist-Other [facility] Hospit al [address] [place] [address] Social History Date Tobacco Use Types Packs/Day [...]
--- OUTSIDE RECORDS SUMMARY | 2020-03-16 14:04 | XMS REPORT | Encounter Summary ---
Author Author 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
--- OUTSIDE RECORDS SUMMARY | 2020-03-16 14:04 | XMS REPORT | Encounter Summary ---
Author Author [facility] Organization [facility] Address Unknown Phone Unavailable Care Team Providers Care Poke In Name Role Phone Ebony Sharp MD PCP Encounter Details Care Team Description Date Type Department Ebony Sharp MD [address] [facility] [address] [place], [place] [address] 04/20/2017 Documentation [facility] Prim[facility] y [facility] [address] [facility] [address] [place] [address] Social History Date Tobacco Use [...]
--- OUTSIDE RECORDS SUMMARY | 2020-03-16 14:04 | XMS REPORT | Encounter Summary ---
Author Author [facility] Organization [facility] Address Unknown Phone Unavailable Care Team Providers Care Clinical Physician Assistant Name Role Phone Ebony Sharp MD PCP Encounter Details Care Team Description Date Type Department Adelaida Olivas MD [address] [facility] [address] [place], [place] [address] 04/29/2017 Hist-Transcript Aide Orthopaedi c ion Encounter Specialists [address] [facility] [address] [place], [place] [address] Social History Date Tobacco Use Types Packs/Day [...] 3RD TOE NONDISPLACED FRACTURE OF DISTAL PHALANX (IJU97-O64.535G) LEFT ANKLE STRESS FRACTURE (EMY76-J63.372D) Status post tibiotalar fusion with interval signs [...] 1 po q daily VITAMIN D (ERGOCALCIFEROL) 97934 UNIT CAPS (ERGOCALCIFEROL) 1 po q weekly [...] pain #40 x 0 Entered by: Sharona Soctt Authorized by: Adelaida Olivas MD Signed by: Sharona Scott on 04/29/2017 Method used: Print then Give to Patient RxID: [id number] MS CONTIN 15 MG CR-TABS (MORPHINE SULFATE) Take 1 tablet every 12 hours as neede d for pain #40 Undefined x 0 Entered by: Sharona Scott Authorized by: Adelaida Olivas MD Signed by: Sharona Scott on 04/29/2017 Method used: Print then Give to Patient RxID: [id number] Review of Systems General: Complains of sweats, [...] CDT Influenza 08/30/2017 08/30/2019 08/30/2019 1:09 PM ELECTROTHERAPIST Influenza - Rule Out 08/30/2019 08/31/2019 09/17/2019 8:17 AM ELECTROTHERAPIST RSV 08/31/2019 documented as of this encounter
--- OUTSIDE RECORDS SUMMARY | 2020-03-16 14:04 | XMS REPORT | Encounter Summary ---
Author Author [facility] Organization [facility] Address Unknown Phone Unavailable Care Team Providers Care Linen Room Houseperson Name Role Phone Ebony Sharp MD PCP Encounter Details Care Team Description Date Type Department Adelaida Olivas MD [address] [facility] [address] [place] [address] [phone] 04/15/2017 Hist-Other [facility] Hospit al [address] [place] [address] Social History Date Tobacco Use Types Packs/Day [...]
--- OUTSIDE RECORDS SUMMARY | 2020-03-16 14:04 | XMS REPORT | Encounter Summary ---
Author Author [facility] Organization [facility] Address Unknown Phone Unavailable Care Team Providers Care Laundromat Manager Name Role Phone Ebony Sharp MD PCP Encounter Details Care Team Description Date Type Department Adelaida Olivas MD [address] [facility] [address] [place] [address] 04/27/2017 [facility] [address] [facility] [address] [place] [address] Social History Date Tobacco Use [...] above rosalind l. Please call back at [phone]. Additional Follow-up by: Trina Rhodes on April 28, 2017 1:22 PM Additional Follow-up for Phone Call Additional Follow-up Details: I left a message for a return phone call. Additional Follow-up by: Kari Young on April 28, 2017 3:34 PM Additional Follow-up for Phone Call Additional Follow-up Details: Patient is returning call, please call back at [phone]. Additional Follow-up by: Steve Sandhu on April [...] CDT Influenza 08/30/2017 08/30/2019 08/30/2019 1:09 PM CANDY ROLLER Influenza - Rule Out 08/30/2019 08/31/2019 09/17/2019 8:17 AM CANDY ROLLER RSV 08/31/2019 documented as of this encounter
--- OUTSIDE RECORDS SUMMARY | 2020-03-16 14:04 | XMS REPORT | Encounter Summary ---
Author Author [facility] Organization [facility] Address Unknown Phone Unavailable Care Team Providers Care Cdl Dedicated Truck Driver Name Role Phone Ebony Sharp MD PCP Reason for Visit * Reason Comments Other Encounter Details Care Team Description Date Type Department Honey Cardoza, SERVICE WRITER [address] [facility] [address] [place] [address] [phone] Other 05/25/2017 Refill [facility] [address] [facility] [place] [address] Social History Date Tobacco Use Types Packs/Day [...] CDT Influenza 08/30/2017 08/30/2019 08/30/2019 1:09 PM ELECTRICIAN JOURNEYMAN WIREMAN Influenza - Rule Out 08/30/2019 08/31/2019 09/17/2019 8:17 AM ELECTRICIAN JOURNEYMAN WIREMAN RSV 08/31/2019 documented as of this encounter
--- OUTSIDE RECORDS SUMMARY | 2020-03-16 14:04 | XMS REPORT | Encounter Summary ---
Author Author [facility] Organization [facility] Address Unknown Phone Unavailable Care Team Providers Care Fisheries Manager Name Role Phone Ebony Sharp MD PCP Reason for Visit * Reason Comments Follow-up Vianney left ankle post op/ ok per Trell/ 04/12/2017 cmlTVX: Appt. Reminder (04/13/2017 06:16 PM) Phone Call - Resp onded "Yes" (Y=Answered - Yes) Encounter Details Care Team Description Date Type Department Adelaida Olivas MD [address] [facility] [address] [place] [address] [phone] 04/15/2017 Hist-Appointmen Aide Orthopaedi c t Specialists [address] [facility] [address] [place] [address] Social History Date Tobacco Use Types Packs/Day [...]
--- OUTSIDE RECORDS SUMMARY | 2020-03-16 14:04 | XMS REPORT | Encounter Summary ---
Author Author [facility] Organization [facility] Address Unknown Phone Unavailable Care Team Providers Care State Game Protector Name Role Phone Ebony Sharp MD PCP Reason for Visit * Reason Comments Follow-up Margot lt 05-13-17 HKW Encounter Details Care Team Description Date Type Department Adelaida Olivas MD [address] [facility] [address] [place] [address] [phone] 05/27/2017 Hist-Appointmen Aide Orthopaedi c t Specialists [address] [facility] [address] [place], [place] [address] Social History Date Tobacco Use Types Packs/Day [...]
--- OUTSIDE RECORDS SUMMARY | 2020-03-16 14:04 | XMS REPORT | Encounter Summary ---
Author Author [facility] Organization [facility] Address Unknown Phone Unavailable Care Team Providers Care Pl Sql Programmer Name Role Phone Ebony Sharp MD PCP Encounter Details Care Team Description Date Type Department Ebony Sharp MD [address] [facility] [address] [place], [place] [address] 05/11/2017 Documentation [facility] Primar y [facility] [address] [facility] [address] [place] [address] Social History Date Tobacco Use [...]
--- OUTSIDE RECORDS SUMMARY | 2020-03-16 14:04 | XMS REPORT | Encounter Summary ---
Author Author [facility] Organization [facility] Address Unknown Phone Unavailable Care Team Providers Care Ruby On Rails Software Developer Name Role Phone Ebony Sharp MD PCP Encounter Details Care Team Description Date Type Department Francoise Hagan RN 04/13/2017 Telephone [facility] Primar y [facility] Emergency Department - East [address] [facility] [address] [place], [place] [id number] Social History Date Tobacco Use Types Packs/Day [...]
--- OUTSIDE RECORDS SUMMARY | 2020-03-16 14:04 | XMS REPORT | Encounter Summary ---
Author Author [facility] Organization [facility] Address Unknown Phone Unavailable Care Team Providers Care Lift Truck Mechanic Name Role Phone Ebony Sharp MD PCP Reason for Visit * Reason Comments Follow-up Margot lt 04-29-17 HKW TVX: Appt. Reminder (05/11/2017 06:19 PM) Phone Call - Message Delivered (X=Answering [place]) Encounter Details Care Team Description Date Type Department Adelaida Olivas MD [address] [facility] [address] [place] [address] [phone] 05/13/2017 Hist-Appointmen Aide Steeleedi hanny moore [facility]ists [address] [facility] [address] [place] [address] Social History Date Tobacco Use Types Packs/Day [...]
--- OUTSIDE RECORDS SUMMARY | 2020-03-16 14:04 | XMS REPORT | Encounter Summary ---
Author Author [facility] Organization [facility] Address Unknown Phone Unavailable Care Team Providers Care Magnetizer Name Role Phone Ebony Sharp MD PCP Encounter Details Care Team Description Date Type Department Adelaida Olivas MD [address] [facility] [address] [place] [address] [phone] 05/13/2017 Hist-Other [facility] [address] [place] [address] Social History Date Tobacco Use Types Packs/Day [...]
--- OUTSIDE RECORDS SUMMARY | 2020-03-16 14:04 | XMS REPORT | Encounter Summary ---
Author Author [facility] Organization [facility] Address Unknown Phone Unavailable Care Team Providers Care Retirement Assistant Name Role Phone Ebony Sharp MD PCP Encounter Details Care Team Description Date Type Department Adelaida Olivas MD [address] [facility] [address] [place], [place] [id number] 05/13/2017 Hist-Transcript Aide Orthopaedi c ion Encounter Specialists [address] [facility] [address] [place], [place] [id number] Social History Date Tobacco Use Types Packs/Day [...] pulse. Impression PSEUDARTHROSIS AFTER FUSION OR ARTHRODESIS (EWX56-M82.0) LEFT ANKLE PRIMARY OSTEOARTHRITIS (PVE37-V93.072) Healing tibiotalar arthrodesis. Plan At this point, [...] 1 po q daily VITAMIN D (ERGOCALCIFEROL) 64923 UNIT CAPS (ERGOCALCIFEROL) 1 po q weekly [...] used: Print then Give to Patient RxID: [id number] OXYCONTIN 10 MG T12A (OXYCODONE HCL) 1 tablet PO BID PRN #40 x 0 Entered by: Sharona Scott Authorized by: Adelaida Olivas MD Signed by: Sharona Scott on 05/13/2017 Method used: Print then Give to Patient RxID: [id number] Vital Signs Ht: 62 in. Wt: 236 [...] CDT Influenza 08/30/2017 08/30/2019 08/30/2019 1:09 PM POLITICAL THEORY PROFESSOR Influenza - Rule Out 08/30/2019 08/31/2019 09/17/2019 8:17 AM POLITICAL THEORY PROFESSOR RSV 08/31/2019 documented as of this encounter
--- OUTSIDE RECORDS SUMMARY | 2020-03-16 14:05 | XMS REPORT | Encounter Summary ---
Author Author [facility] Organization [facility] Address Unknown Phone Unavailable Care Team Providers Care Decontamination Worker Name Role Phone Ebony Sharp MD PCP Reason for Visit * Auth/Cert Referred By Contact Referred To Contact Status Reason Specialty Diagnoses / Procedures Diagnoses M19.072 P rocedures [place] ARTHRODESIS,ANKLE, OPEN LEFT ANKLE REMOVAL OF HARDWARE REVISION ARTHRODESIS LEFT ANKLE Encounter Details Care Team Description Date Type Department Adelaida Olivas MD [address] [facility] [address] [place] [address] [phone] Type 2 diabetes mellitus with hyperglyce prasanna, 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); Benign essential HTN 04/09/2017 [facility] 04/12/2017 [address] [place] [address] Social History Date Tobacco Use Types Packs/Day [...] known as: LOPRESSOR 16. naloxone 4 mg/actuation Brainards Dose: 1 spray Use 1 spray in [...] Commonly known as: ZOCOR Adelaida Olivas MD [id number] documented in this encounter Discharge Instructions * Appointments* Fiorella Diana RN - 04/12/2017 10:52 AM CDT Follow up appointment is scheduled for March at 4:[address] Olivas [facility] [phone] * Pre-Procedure Instructions* Renee Sanderson RN - [...] be sent through Care Everywhere.* ENOXAPARIN INJECTION (SAUDI ARABIAN) * OXYCODONE HYDROCHLORIDE ORAL TABLET (SAUDI ARABIAN) * CONSTIPATION (ADULT) (SAUDI ARABIAN) * DIET: HIGH FIBER, DISCHARGE INSTRUCTIONS (SAUDI ARABIAN) documented in this encounter Medications at Time [...] Cardoza APRN - 04/12/2017 9:03 AM CDT [facility] Hospitalist - Progress Note Patient Name: Isiah Benítez Account No: [id number] Date of : 1950 Date of Admission: [...] re results (as indicated), current inpatient medications, rn lactation consultant notes and s upport staff notes [...] regarding this patients treatment plan. Room: [address] [place] [address] Diet: Diet-Consistent Carbohydrate (75 gm) Code Status: [...] p rochlorperazine OR prochlorperazine Honey Abdullahi [facility]N [facility] Please page through physician paging. > 25 minutes spent on chart review, exam, orders and patient education. >50% of this time was spent face to face with the patient. . * Maryam Cornell RN APRN - 04/12/2017 8:58 AM CDT [facility] Orthopedic Daily Progress Note Patient Name: [...] to display Maryam Cornell APRN- Orthopedics Pager [phone] * Heriberto Acosta MD - 04/11/2017 8:59 AM CDT [facility] Hospitalist - Progress Note Patient Name: Isiah Do Board Account No: [id number] Date of : 1950 Date of Admission: [...] indicated), current inpatient medications and customer support technician notes with pertainent findings noted within the assessment/plan. Assessment/Plan Ms. Isiah Benítez is a 66 y.o. female who was admitted on 04/09/2017 with ankle p ain. Problems addressed with today's visit include: Type 2 diabetes mellitus with hyperglycemia, with long-term current use of insul in ([facility]) Mildly hyperglycemic, likely due to stress/pain- will continue current basal/marita wilbert insulin dosing and monitor. SASHA on CPAP She is trying to be more compliant with CPAP use Benign essential HTN Continue amlodipine COPD (chronic obstructive pulmonary disease) ([facility]) Stable -continue breo and nebs -quit smoking 7 years ago Closed left ankle fracture Management by primary service Chronic pain Continue gabapentin and elavil See my orders for additional details regarding this patients treatment plan. Room: [address] [place] [address] Diet: Diet-Consistent Carbohydrate (75 gm) Code Status: [...] p rochlorperazine OR prochlorperazine Heriberto Acosta MD [facility] Please page through physician paging. . * Walker Funez MD - 04/11/2017 8:50 AM CDT [facility] Orthopaedic Progress Note Subjective: Patient states [...] Acosta MD - 04/10/2017 12:31 PM CDT [facility] Hospitalist - Progress Note Patient Name: Isiah Do Board Account No: [id number] Date of : 1950 Date of Admission: [...] indicated), current inpatient medications and customer support technician notes with pertainent findings noted within the assessment/plan. Assessment/Plan Ms. Isiah Benítez is a 66 y.o. female who was admitted on 04/09/2017 with ankle p ain. Problems addressed with today's visit include: Type 2 diabetes mellitus with hyperglycemia, with long-term current use of insul in ([facility]) Remains hyperglycemic post-op- will increase basal insulin dose and correction level and monitor. SASHA on CPAP She is trying to be more compliant with CPAP use Benign essential HTN Continue amlodipine COPD (chronic obstructive pulmonary disease) ([facility]) Stable -continue breo and nebs -quit smoking 7 years ago Closed left ankle fracture Management by primary service Chronic pain Continue gabapentin and elavil See my orders for additional details regarding this patients treatment plan. Room: [facility]/[address] [place] [address] Diet: Diet-Consistent Carbohydrate (75 gm) Code Status: [...] OR prochlorperazine OR prochlorperazine Heriberto Acosta MD [facility] Please page through physician paging. . * Walker Funez MD - 04/10/2017 7:22 AM CDT [facility] Orthopaedic Progress Note Subjective: Patient states [...] encounter H&P Notes * Maryam Cornell RN TELEVISION TECHNICIAN - 04/08/2017 4:00 [place] [address] History and Physical PATIENT NAME: Isiah Benítez DATE: 04/08/2017 CPI: [id number] AGE: 66 y.o. : 1950 HISTORY OF [...] mutually agreed upon goals. 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 Social History: She [...] Take 1 tablet (100 mg total) by or ut 2 (two) times a day. morphine [...] indicated), current inpatient medications and customer support technician notes with pertainent findings noted within the assessment/plan. Assessment/PlanMs. Isiah Benítez is a 66 y.o. female who was admitted on 04/09/20 17 with complaint of left ankle surgery. IDDM (insulin dependent diabetes mellitus) ([facility]) Continue lantus 15 u qhs -not on [...] a negative biological and were sterilized in [facility] Department. documented in this encounter [...] General Discharge Note Called patients preferred pharmacy [facility] [phone] to inquire cost of soraya xaparin 40mg [id number] #30. Cost to patient is $3.30. Prescription called in and ready for pickup at discharge. Will follow for any other needs at discharge. Eugenia Diana ASSOCIATE DATA SCIENTIST Manager It Training [phone] * Discharge Planning - Fiorella Diana RN - 04/12/2017 9:38 AM CDT Discharge Planning Interventions General Discharge Note Reviewed discharge orders. HH is not ordered for discharge. Spoke with Maryam elmore RN TELEVISION TECHNICIAN who confirms that HH is not necessary [...] RW at home Prior Function Level of [place] Independent with ADLs;Independent with ambulation;Independ ent with [...] RW at home Prior Function Level of [place] Independent with ADLs;Independent with ambulation;Independ ent with [...] mutually agreed upon goals. Teri Rubio LCSW, Dental Office Coordinator [phone] Patient's Living Arrangement: House Support System: Children. [...] mutually agreed upon goals. Teri Rubio LCSW, Dental Office Coordinator [phone] Referral to see patient was placed by [...] MD and recei ves their medications from [facility] [address] [place], [place] [address] [address] [address] [place] [address] [address] [facility] [address] [phone] [facility] [address] [place], [place] - [address] [facility] & [address] [facility] [phone] * Plan of Care - Terrie Gallagher [...] AM CDT PRIMARY SURGEON: Dr. Adelaida Olivas NEWS REPORTER: Geraldine Neves CST ESTIMATED BLOOD LOSS: Minimal. No intraoperative complications. PREOPERATIVE DIAGNOSIS: Failed tibiotalar arthrodesis. POSTOPERATIVE DIAGNOSIS: Failed tibiotalar arthrodesis. OPERATIONS PERFORMED: Removal of hardware through 3 separate incisions, [place] s tendon lengthening, tibiotalar fusion, fibular osteotomy with bone stimulator insertion and open ankle arthrodesis. COMPLICATIONS: There were no intraoperative complications. OPERATIVE IMPLANTS: Include 8.0 mm cannulated screw from [employer] with the [employer] lateral fusion plate, no intraoperative complications. [...] guidewire for 8.0 mm cannulated screw from [employer] r was subsequently placed onto the anterolateral portion of the patient's distal fibula into the talus. This yielded excellent compression. Clinical alignment was checked, a [employer] lateral fusion plate was subsequently applied usi [...] results within the time period is included. [facility] Glucose POC 180 (H) 70 - 100 mg/dL [facility] Specimen Performing Organization Address City/State/Zipcode Ph one Number [facility] [address] [place] [facility] [place] [address] [facility] [address] [facility] [address], [facility] * Basic Metabolic Panel (04/10/2017 10:18 [...] 7 - 26 mg/dL [facility] N[facility] Creatinine 1.0 0.4 - 1.1 mg/dL MEHUL ZAZUETABrilliant TelecommunicationsEugenia [facility] eGFR Female AA 67 60 - 200 [facility] Comment: [facility] Chronic Kidney Disease less [facility] than 60 mL/min/1.73 sq.m Kidney failure less than 15 mL/min/1.73 sq.m eGFR Female 56 (L) 60 - 200 [facility] Non-AA Comment: [facility] AGUSTINS Chronic Kidney Disease less [facility] than 60 mL/min/1.73 sq.m Kidney failure less than 15 mL/min/1.73 sq.m Specimen Blood Narrative Performed At This order is a replacement of the rejected order wit h accession number [facility] [id number]. [facility] Performing Organization Address City/State/Zipcode Ph one Number [facility] [address] [facility], [place] [id number] [facility] [address] [facility] [place] [address], [facility] * Complete Blood Count (04/10/2017 8:42 AM CDT) WBC 18.60 (H) 4.00 - 11.00 TH/uL [facility] RBC 4.04 4.00 - 5.00 MIL/uL [facility] Hemoglobin 13.4 12.0 - 15.0 g/dL [facility] Hematocrit 40 36 - 45 % [facility] MCV 99 80 - 99 fL KATEEugenia ZAZUETAEugenia [facility] MCH 33 27 - 34 pg [facility] MCHC 34 32 - 36 % [facility] ZAZUET[facility] RDW 13.5 9.0 - 14.5 % [facility] ZAZUET[facility] Platelet Count 217 140 - 400 TH/uL [facility] MPV 10.5 9.4 - 12.3 fL [facility] Specimen Blood Performing Organization Address City/State/Zipcode Ph one Number [facility] [address] [facility] [place] [facility] [place] [address] [facility] [address] [facility] [place] [address], [facility] * XR Ankle min 3 views [...] ils regarding real-time findings. READING SITE: [facility] . Narrative Performed At Patient: ISIAH BENÍTEZ YAIMAJEFFREY Sex#: F # [id number] Jose#: [id number] Location: [facility] MAIN OR NONE Procedure Requested: [id number] XR ANKLE MIN 3 VIEWS LEFT Reason for Exam: ankle pain Exam Ordered: 04/09/2017 12 54 Exam Date/Time: 04/09/2017 151 8 Begin exam date/time: 04/09/2017 125 4 XR ANKLE MIN 3 VIEWS LEFT INDICATION: ankle pain COMPARISON: CT from 02/18/2017. Procedure Note Interface, Rad Results In - 04/09/2017 4:05 PM CDT Patient: ISIAH BENÍTEZ Sex#: F # [id number] Jose#: [id number] Location: [facility] MAIN OR NONE Procedure Requested: [id number] XR ANKLE MIN 3 VIEWS LEFT Reason [...] details regarding real-time findings. READING SITE: [facility]. Performing Organization Address City/State/Zipcode Ph one Edgar [...] failure or contraindication to first or second asnjay e agent use Do NOT use ondansetron [...]
--- OUTSIDE RECORDS SUMMARY | 2020-03-16 14:05 | XMS REPORT | Encounter Summary ---
Author Author [facility] Organization [facility] Address Unknown Phone Unavailable Care Team Providers Care Consulting Sales Manager Name Role Phone Ebony Sharp MD PCP Reason for Visit * Reason Comments Hospital Follow-up [facility] 04/12/17-F/U Type 2 D M w/ hyperglycemia,long-term current use of insulin (HCC) TAZ RNCC Encounter Details Care Team Description Date Type Department Francoise Hagan RN Hospital Follow-up ([facility] 04/12/17-F/U T ype 2 DM w/ hyperglycemia,long-term current use of insulin (HCC) TAZ RNCC) 04/13/2017 Telephone [facility] [address] [facility] [address] [place] [address] Social History Date Tobacco Use [...] Hagan RN - 04/13/2017 8:[address] [facility] HOSPITAL FOLLOW UP / TRANSITIONAL CARE COORDINATION PATIENT NAME/DATE OF Caren Patten (1950) DATE OF LAST OFFICE VISIT: 04/08/17 Lila ( surgery clearance) FACILITY/ADMISSION DATE: 04/09/17 [facility] DISCHARGE DATE/DISPOSITION: 04/12/17 (home self care) DISCHARGE DIAGNOSIS: Type 2 diabetes mellitus with hyperglycemia, with long-ter m current use of insulin ([facility] HOSPITAL COURSE: Presented to hospital for elective [...] call. Appt scheduled w/ PCP. ADDITIONAL NOTES: [facility] CORE DRILLER HELPER: Francoise Hagan RN documented in this encounter Plan of Treatment Not on filedocumented as of this encounter Visit Diagnoses Not on filedocumented in this encounter
--- OUTSIDE RECORDS SUMMARY | 2020-03-16 14:05 | XMS REPORT | Encounter Summary ---
Author Author [facility] Organization [facility] Address Unknown Phone Unavailable Care Team Providers Care Environmental Aid Name Role Phone Ebony Sharp MD PCP Reason for Visit * Auth/Cert Referred By Contact Referred To Contact Status Reason Specialty Diagnoses / Procedures Diagnoses M19.072 P rocedures IN ARTHRODESIS,ANKLE, OPEN LEFT ANKLE REMOVAL OF HARDWARE REVISION ARTHRODESIS LEFT ANKLE Encounter Details Care Team Description Date Type Department Adeliada Olivas MD [address] [facility] [address] [place] [address] [phone] LEFT ANKLE REMOVAL OF HARDWARE WITH REVI EJ LEFT ANKLE ARTHRODESIS 04/09/2017 Surgery [facility] [address] [place] [address] Social History Date Tobacco Use Types Packs/Day [...] known as: LOPRESSOR 16. naloxone 4 mg/actuation [place] Dose: 1 spray Use 1 spray in [...] Commonly known as: ZOCOR Adelaida Olivas MD [id number] documented in this encounter Discharge Instructions * Appointments* Fiorella Diana RN - 04/12/2017 10:52 AM CDT Follow up appointment is scheduled for March at 4:[address] Olivas [facility] [phone] * Pre-Procedure Instructions* Renee Sanderson RN - [...] be sent through Care Everywhere.* ENOXAPARIN INJECTION (MACANESE) * OXYCODONE HYDROCHLORIDE ORAL TABLET (MACANESE) * CONSTIPATION (ADULT) (MACANESE) * DIET: HIGH FIBER, DISCHARGE INSTRUCTIONS (MACANESE) documented in this encounter Medications at Time [...] Cardoza APRN - 04/12/2017 9:03 AM CDT [facility] Hospitalist - Progress Note Patient Name: Isiah Do Board Account No: [id number] Date of : 1950 Date of Admission: [...] results (as indicated), current inpatient medications, business management consultant notes and s upport staff [...] amlodipine COPD (chronic obstructive pulmonary disease) ([facility]) Stable, quit smoking 7 years ago. No signs of exacerbation -continue breo and nebs Chronic pain Stable, Continue gabapentin and elavil See my orders for additional details regarding this patients treatment plan. Room: [address] [place] [address] Diet: Diet-Consistent Carbohydrate (75 gm) Code Status: [...] p rochlorperazine OR prochlorperazine Honey Abdullahi APRN [facility] Please page through physician paging. > 25 minutes spent on chart review, exam, orders and patient education. >50% of this time was spent face to face with the patient. . * Maryam Cornell RN APRN - 04/12/2017 8:58 AM CDT [facility] Orthopedic Daily Progress Note Patient Name: Isiah Do Earline Date: 04/12/2017 Hospital Day # LOS: 3 days Procedure: removal of hardware and revision of left ankle arthrodesis on 04/09/[address] Adelaida Olivas Assessment/Plan: Active Problems: COPD (chronic obstructive pulmonary disease) ([facility]) Chronic pain Type 2 diabetes mellitus with [...] to display Maryam Cornell APRN- Orthopedics Pager [phone] * Heriberto Acosta MD - 04/11/2017 8:59 AM CDT [facility] Hospitalist - Progress Note Patient Name: Isiah Benítez Account No: [id number] Date of : 1950 Date of Admission: [...] indicated), current inpatient medications and customer support assistant notes with pertainent findings noted within the assessment/plan. Assessment/Plan Ms. Isiah Benítez is a 66 y.o. female who was admitted on 04/09/2017 with ankle p ain. Problems addressed with today's visit include: Type 2 diabetes mellitus with hyperglycemia, with long-term current use of insul in ([facility]) Mildly hyperglycemic, likely due to stress/pain- will continue current basal/marita wilbert insulin dosing and monitor. SASHA on CPAP She is trying to be more compliant with CPAP use Benign essential HTN Continue amlodipine COPD (chronic obstructive pulmonary disease) ([facility]) Stable -continue breo and nebs -quit smoking 7 years ago Closed left ankle fracture Management by primary service Chronic pain Continue gabapentin and elavil See my orders for additional details regarding this patients treatment plan. Room: [address] [place] [address] Diet: Diet-Consistent Carbohydrate (75 gm) Code Status: [...] p rochlorperazine OR prochlorperazine Heriberto Acosta MD [facility] Please page through physician paging. . * Walker Funez MD - 04/11/2017 8:50 AM CDT [facility] Orthopaedic Progress Note Subjective: Patient [...] Acosta MD - 04/10/2017 12:31 PM CDT [facility] Hospitalist - Progress Note Patient Name: Isiah Do Board Account No: [id number] Date of : 1950 Date of Admission: [...] indicated), current inpatient medications and customer support assistant notes with pertainent findings noted within the assessment/plan. Assessment/Plan Ms. Isiah Benítez is a 66 y.o. female who was admitted on 04/09/2017 with ankle p ain. Problems addressed with today's visit include: Type 2 diabetes mellitus with hyperglycemia, with long-term current use of insul in ([facility]) Remains hyperglycemic post-op- will increase basal insulin dose and correction level and monitor. SASHA on CPAP She is trying to be more compliant with CPAP use Benign essential HTN Continue amlodipine COPD (chronic obstructive pulmonary disease) ([facility]) Stable -continue breo and nebs -quit smoking 7 years ago Closed left ankle fracture Management by primary service Chronic pain Continue gabapentin and elavil See my orders for additional details regarding this patients treatment plan. Room: [address] [place] [address] Diet: Diet-Consistent Carbohydrate (75 gm) Code Status: [...] OR prochlorperazine OR prochlorperazine Heriberto Acosta MD [facility] Please page through physician paging. . * Walker Funez MD - 04/10/2017 7:22 AM CDT [facility] Orthopaedic Progress Note Subjective: Patient [...] encounter H&P Notes * Maryam Cornell RN GRAVEL ROOFER - 04/08/2017 4:00 [place] [address] History and Physical PATIENT NAME: Isiah Do Earline DATE: 04/08/2017 CPI: [id number] AGE: 66 y.o. : 1950 HISTORY OF [...] mutually agreed upon goals. Teri Rubio LCSW, Acrylic Fabricator [phone] * Sheryl Paredes DO - 04/09/2017 8:49 PM CDT Associated Order(s): IP CONSULT TO HOSPITALIST [facility] Hospitalist - Consult History & Physical Patient Name: Isiah Do Board Account No: [id number] Date of : 1950 Date of Admission: [...] (); Cataract (2011, 2012); Chronic pain disorder; [employer] D (chronic obstructive pulmonary disease) (); Depression; [...] her father and mother; Stroke in her [facility] er and mother. Social History: She [...] indicated), current inpatient medications and customer support assistant notes with pertainent findings noted within the assessment/plan. Assessment/PlanMs. Isiah Benítez is a 66 y.o. female who was admitted on 04/09/20 17 with complaint of left ankle surgery. IDDM (insulin dependent diabetes mellitus) ([facility]) Continue lantus 15 u qhs -not on [...] cont inue to follow. Sheryl Paredes DO [facility] Please page through physician paging. . documented [...] a negative biological and were sterilized in [facility] Sterile Processing Department. documented in this encounter Miscellaneous Notes * Care Progression Final DC Note - Fiorella Daina RN - 04/12/2017 2:56 PM CDT Final Discharge Note Discharge goal and plan is mutually agreed upon by patient and Care Coordinaton. Patient will discharge to: [facility] Transportation: daughter Discharge Time: after 5:00pm Special [...] General Discharge Note Called patients preferred pharmacy [facility] [phone] to inquire cost of soraya xaparin 40mg [id number] #30. Cost to patient is $3.30. Prescription called in and ready for pickup at discharge. Will follow for any other needs at discharge. Shazia Diana TRENCH DIGGER Concrete Truck Driver [phone] * Discharge Planning - Fiorella Diana RN - 04/12/2017 9:38 AM CDT Discharge Planning Interventions General Discharge Note Reviewed discharge orders. HH is not ordered for discharge. Spoke with Maryam elmore RN GRAVEL ROOFER who confirms that HH is not necessary [...] RW at home Prior Function Level of [place] Independent with ADLs;Independent with ambulation;Independ ent with [...] RW at home Prior Function Level of [place] Independent with ADLs;Independent with ambulation;Independ ent with [...] mutually agreed upon goals. Teri Rubio LCSW, Acrylic Fabricator [phone] Patient's Living Arrangement: House Support System: Children. [...] mutually agreed upon goals. Teri Rubio LCSW, Acrylic Fabricator [phone] Referral to see patient was placed by [...] MD and recei ves their medications from [facility] [address] [place], [place] - [address] [address] AT [place] [address] [address] [facility] [address] [address] [place] [address] [place], [place] - [address] [place] [address] AT [facility] & [address] [facility] [address] * Plan of Care - Terrie Gallagher [...] ([facility]) Stable, quit smoking 7 years ago. No signs of exacerbation -continue breo and nebs * Assessment & Plan Note - Honey Cardoza APRN - 04/09/2017 10:00 PM CDT Associated Problem(s): Type 2 diabetes mellitus with hyperglycemia, with long-te rm current use of insulin ([facility]) Mildly hyperglycemic, likely due to stress/pain- -Continue [...] AM CDT PRIMARY SURGEON: Dr. Adelaida Olivas SOFT TILE SETTER: Geraldine Neves CST ESTIMATED BLOOD LOSS: Minimal. No intraoperative complications. PREOPERATIVE DIAGNOSIS: Failed tibiotalar arthrodesis. POSTOPERATIVE DIAGNOSIS: Failed tibiotalar arthrodesis. OPERATIONS PERFORMED: Removal of hardware through 3 separate incisions, Correll s tendon lengthening, tibiotalar fusion, fibular osteotomy with bone stimulator insertion and open ankle arthrodesis. COMPLICATIONS: There were no intraoperative complications. OPERATIVE IMPLANTS: Include 8.0 mm cannulated screw from [place] with the [place] [facility] lateral fusion plate, no intraoperative complications. PREOPERATIVE [...] guidewire for 8.0 mm cannulated screw from Post-i r was subsequently placed onto the anterolateral portion of the patient's distal fibula into the talus. This yielded excellent compression. Clinical alignment was checked, a Curio lateral fusion plate was subsequently applied usi [...] POC 180 (H) 70 - 100 mg/dL [facility] Specimen Performing Organization Address City/State/Zipconc Ph one Number [facility] [address] [facility], [place] [id number] [facility] [address] [place] [address], [facility] * Basic Metabolic Panel (04/10/2017 10:18 AM CDT) Only the most recent of 2 results within the time period is included. Pathologist [facility] Sodium 139 133 - 147 MEQ/L [facility] Potassium 4.2 3.5 - 5.3 MEQ/L [facility] Chloride 102 96 - 112 [...] 0.4 - 1.1 mg/dL [facility] eGFR Female AA 67 60 - 200 [facility] Comment: ALBERT AGUSTINS Chronic Kidney Disease [...] wit h accession number [facility] [id number]. [facility] Performing Organization Address City/State/Zipcode Ph one Number [facility] [address] [place] [address] [facility] [address] [place] [address], [facility] * Complete Blood Count (04/10/2017 8:42 AM CDT) WBC 18.60 (H) 4.00 - 11.00 TH/uL [facility] RBC 4.04 4.00 - 5.00 MIL/uL [facility] Hemoglobin 13.4 12.0 - 15.0 g/dL [facility] Hematocrit 40 36 - 45 % [facility] MCV 99 80 - 99 fL [facility] MCH 33 27 - 34 pg [facility] MCHC 34 32 - 36 % [facility] RDW 13.5 9.0 - 14.5 % [facility] Platelet Count 217 140 - 400 TH/uL [facility] MPV 10.5 9.4 - 12.3 fL [facility] Specimen Blood Performing Organization Address City/State/Zipcode Ph one Number [facility] [address] [facility] [place] [address] [facility] [address] [place] [facility] [place] [address], [facility] * XR Ankle min 3 [...] deta ils regarding real-time findings. READING SITE: [facility] . Narrative Performed At Patient: ISIAH BENÍTEZ Sex#: F # [id number] Jose#: [id number] Location: [facility] MAIN OR NONE Procedure Requested: [id number] XR ANKLE MIN 3 VIEWS LEFT Reason for Exam: ankle pain Exam Ordered: 04/09/2017 12 54 Exam Date/Time: 04/09/2017 151 8 Begin exam date/time: 04/09/2017 125 4 XR ANKLE MIN 3 VIEWS LEFT INDICATION: ankle pain COMPARISON: CT from 02/18/2017. Procedure Note Interface, Rad Results In - 04/09/2017 4:05 PM CDT Patient: ISIAH BENÍTEZ Sex#: Paulina # [id number] Jose#: [id number] Location: [facility] MAIN OR NONE Procedure Requested: [id number] XR ANKLE MIN 3 VIEWS LEFT Reason [...] full details regarding real-time findings. READING SITE: [facility]. Performing Organization Address City/State/Zipcode Ph one Number [...]
--- OUTSIDE RECORDS SUMMARY | 2020-03-16 14:05 | XMS REPORT | Encounter Summary ---
Author Author [facility] Organization [facility] Address Unknown Phone Unavailable Care Team Providers Care Egg Grader Name Role Phone Ebony Sharp MD PCP Reason for Visit * Reason Comments Other Encounter Details Care Team Description Date Type Department Ebony Sharp MD [address] [facility] [address] [place], [place] [id number] Other 04/13/2017 Refill [facility] [address] [facility] [address] [place], [place] [id number] Social History Date Tobacco Use Types Packs/Day [...]
--- OUTSIDE RECORDS SUMMARY | 2020-03-16 14:05 | XMS REPORT | Encounter Summary ---
Author Author [facility] Organization [facility] Address Unknown Phone Unavailable Care Team Providers Care Jewelry Designer Name Role Phone Ebony Sharp MD PCP Encounter Details Care Team Description Date Type Department Francoise Hagan, RN 04/13/2017 Documentation [facility] Care - [facility] [address] [facility] [address] [place], [place] [id number] Social History Date Tobacco Use Types Packs/Day [...]
--- OUTSIDE RECORDS SUMMARY | 2020-03-16 14:05 | XMS REPORT | Encounter Summary ---
Author Author [facility] Organization [facility] Address Unknown Phone Unavailable Care Team Providers Care Joint Machine Operator Name Role Phone Ebony Sharp MD PCP Encounter Details Care Team Description Date Type Department Adelaida Olivas MD [address] [facility] [address] [place], [place] [id number] 04/09/2017 Hist[facility] En[facility] [address] [facility] [address] [place], [place] [id number] Social History Date Tobacco Use Types Packs/Day [...] CDT Influenza 08/30/2017 08/30/2019 08/30/2019 1:09 PM PULP MIXER Influenza - Rule Out 08/30/2019 08/31/2019 09/17/2019 8:17 AM PULP MIXER RSV 08/31/2019 documented as of this encounter
--- OUTSIDE RECORDS SUMMARY | 2020-03-16 14:05 | XMS REPORT | Encounter Summary ---
Author Author [facility] Organization [facility] Address Unknown Phone Unavailable Care Team Providers Care Flux Mixer Name Role Phone Ebony Sharp MD PCP Reason for Visit * Auth/Cert Referred By Contact Referred To Contact Status Reason Specialty Diagnoses / Procedures Diagnoses M19.072 P rocedures [place] ARTHRODESIS,ANKLE, OPEN LEFT ANKLE REMOVAL OF HARDWARE REVISION ARTHRODESIS LEFT ANKLE Encounter Details Care Team Description Date Type Department Winston Hendricks MD [address] [place] [address] [phone] Bernardino Herrera RN LOW PRESSURE BOILER TENDER [address] [place] [address] [phone] 04/09/2017 Anesthesia [facility] [address] [place] [address] Anesthesia Record Responsible Anesthesiologist Anesthesia Start Time [...] 0747 04/09/17 1528 by Marisa Masters RN LOW PRESSURE BOILER TENDER Non-Surgic Date: 04/09/17; Time: 1249; Able to mas k 04/09/17 1249 by Bernardino lyons Airway ventilate prior to placement: Yes; Arslan lewis RN LOW PRESSURE BOILER TENDER Placed By: Kitchen Bath Designer; Site: Oral; Device: LMA; Size: 4; Placement [...] risks discussed with patient. Plan discussed with LOW PRESSURE BOILER TENDER. Post-operative analgesia: routine analgesia and antiemetics and nerve block for post-op analgesia Recovery plan: PACU Risk factors for PONV: female and non smoker PONV risk level: moderate documented in this encounter Plan of Treatment Date/Time Name Type Priority Associated Diag noses 04/09/2017 5:58 PM CDT ANESTHESIA PERIPHERAL [place] Charge Routine BLOCK 04/09/2017 5:59 PM CDT ANESTHESIA PERIPHERAL [place] Charge Routine BLOCK documented as of this [...]
--- OUTSIDE RECORDS SUMMARY | 2020-03-16 14:06 | XMS REPORT | Encounter Summary ---
Author Author [facility] Organization [facility] Address Unknown Phone Unavailable Care Team Providers Care Knurling Machine Operator Name Role Phone Ebony Sharp MD PCP Encounter Details Care Team Description Date Type Department Merrill Harry, PT PT MISSED VISIT DOCUMENTATION 04/02/2017 Home Care Visit [facility] [address] [facility] [address] [place] [address] Social History Date Tobacco Use [...]
--- OUTSIDE RECORDS SUMMARY | 2020-03-16 14:06 | XMS REPORT | Encounter Summary ---
Author Author [facility] Organization [facility] Address Unknown Phone Unavailable Care Team Providers Care Hospital Recruiter Name Role Phone Ebony Sharp MD PCP Reason for Visit * Reason Comments Follow-up Margot left ankle [id number]: Appt. Reminder (03/12/2017 06:20 PM) Phone Call - Message Delivered (X=Answe ring Machine) Encounter Details Care Team Description Date Type Department Adelaida Olivas MD [address] [facility] [address] [place] [address] [phone] 03/16/2017 Hist-Appointmen [facility] Orth[facility]edi [facility] t Specialists [address] [facility] [address] [place] [address] Social History Date Tobacco Use Types Packs/Day [...]
--- OUTSIDE RECORDS SUMMARY | 2020-03-16 14:06 | XMS REPORT | Encounter Summary ---
Author Author [facility] Organization [facility] Address Unknown Phone Unavailable Care Team Providers Care Concrete Vibrator Operator Name Role Phone Ebony Sharp MD PCP Reason for Visit * Reason Comments Other Encounter Details Care Team Description Date Type Department Ebony Sharp MD [address] [facility] [address] [place], [place] [phone] Other 02/26/2017 Refill [facility] - [facility] [address] [facility] [address] [place], [place] [id number] Social History Date Tobacco Use Types Packs/Day [...] Influenza 08/30/2017 08/30/2019 08/30/2019 1:09 PM ELECTRONIC EQUIPMENT MAINT TECH Influenza - Rule Out 08/30/2019 08/31/2019 09/17/2019 8:17 AM ELECTRONIC EQUIPMENT MAINT TECH RSV 08/31/2019 documented as of this encounter
--- OUTSIDE RECORDS SUMMARY | 2020-03-16 14:06 | XMS REPORT | Encounter Summary ---
Author Author [facility] Organization [facility] Address Unknown Phone Unavailable Care Team Providers Care Curriculum Counselor Name Role Phone Ebony Sharp MD PCP Reason for Visit * Reason Comments Medication Refill Encounter Details Care Team Description Date Type Department Jennifer Feng, trailhead maintenance worker Refill 03/29/2017 Refill [facility] [address] [facility] [address] [place], [place] [id number] Social History Date Tobacco Use Types Packs/Day [...]
--- OUTSIDE RECORDS SUMMARY | 2020-03-16 14:06 | XMS REPORT | Encounter Summary ---
Author Author [facility] Organization [facility] Address Unknown Phone Unavailable Care Team Providers Care Weight Guesser Name Role Phone Ebony Sharp MD PCP Reason for Visit * Reason Comments Follow-up surgery clearance Encounter Details Care Team Description Date Type Department Ebony Sharp MD [address] [facility] [address] [place] [address] SASHA (obstructive sleep apnea) (Primary D x); Essential hypertension; Hyperlipidemia, unspecified hyperlipidemia type; MATA (generalized anxiety disorder); Chronic obstructive pulmonary disease, unspecified COPD type ([facility]); IDDM (insulin dependent diabetes mellitus) ([facility]) 04/08/2017 Office Visit [facility] [address] [facility] [address] [place], [place] [id number] Social History Date Tobacco Use Types Packs/Day [...] Licensed Practical Nurse Sha Gomez MA as Freight Weigher Aniya Rosa MA as Freight Weigher Lisa Moreno LPN as Licensed Practical Nurse Sheryl Barfield MA as Freight Weigher The patients demographics, including age, gender, race, [...] obstructive pulmonary disease, unspecified COPD type ([facility]) IDDM (insulin dependent diabetes mellitus) ([facility]) - Hemoglobin A1C; Future - Microalbumin Random; [...] to have her glucose watched while in [facility]. Her SASHA and COPD are currently [...] (04/08/2017 12:49 PM CDT) Creatinine 439.2 mg/dL [facility] Urine Random [facility] Microalbumin 10.40 mg/dL [facility] mg/dl [facility] Microalbumin/Cr 23.68 0.00 - 30.00 ug/mg [facility] eatinine Ratio [facility] Specimen Performing Organization Address [facility] Ph one Number [facility] [address] [place], [place] [id number] LABORATORIES * Thyroid Stimulating Hormone (04/08/2017 12:49 PM CDT) Thyroid 0.35 (L) 0.47 - 4.68 uIU/mL [facility] Stimulating [facility] Specimen Blood Performing Organization Address [facility] Ph one Number [facility] [address] [place] [address] LABORATORIES * Lipid Panel (04/08/2017 12:49 PM CDT) Cholesterol 193 100 - 200 mg/dL [facility] HDL Cholesterol 54 40 - 110 mg/dL [facility] Non-HDL 139 (H) 0 - 130 mg/dL [facility] Cholesterol [facility] LABORATORIES Triglycerides 182 (H) 0 - 150 mg/dL [facility] LDL Cholesterol 103 (H) 0 - 99 mg/dL [facility] Cholesterol/HDL 3.6 0.0 - 4.5 [facility] Ratio [facility] Specimen Blood Performing Organization Address [facility] one Number [facility] [address] [place] [address] LABORATORIES * Hemoglobin A1C (04/08/2017 12:49 PM CDT) Hemoglobin A1C 8.1 (H) 4.0 - 5.6 % [facility] Comment: REGIONAL Non-diabetic 4.0 - LABORATORIES 5.6 % Prediabetes 5.7 - 6.4 % Diabetes >= 6.5 % Specimen Blood Performing Organization Address City/[facility] one Number [facility] [address] [place] [address] LABORATORIES documented in this encounter Visit Diagnoses Diagnosis SASHA (obstructive sleep apnea) Obstructive sleep apnea (adult) ([facility]) Essential hypertension Unspecified essential hypertension Hyperlipidemia, unspecified hyperlipide prasanna type MATA (generalized anxiety disorder) Generalized anxiety disorder Chronic obstructive pulmonary disease, unspecified COPD type ([facility]) IDDM (insulin dependent diabetes [facility]) documented in this encounter
--- OUTSIDE RECORDS SUMMARY | 2020-03-16 14:06 | XMS REPORT | Encounter Summary ---
Author Author [facility] Organization [facility] Address Unknown Phone Unavailable Care Team Providers Care Sea Air Land Officer Name Role Phone Ebony Sharp MD PCP Reason for Visit * Reason Comments Other Encounter Details Care Team Description Date Type Department Ebony Sharp MD [address] [facility] [address] [place], [place] [id number] Other 02/18/2017 Refill [facility] Primar y Care - East [address] [facility] [address] [place], [place] [id number] Social History Date Tobacco Use Types Packs/Day [...]
--- OUTSIDE RECORDS SUMMARY | 2020-03-16 14:06 | XMS REPORT | Encounter Summary ---
Author Author [facility] Organization [facility] Address Unknown Phone Unavailable Care Team Providers Care Casing In Line Setter Name Role Phone Ebony Sharp MD PCP Encounter Details Care Team Description Date Type Department Adelaida Olivas MD [address] [facility] [address] [place], [place] [address] 03/16/2017 Hist-Transcript [facility] ion Encounter Specialists [address] [facility] [address] [place], [place] [address] Social History Date Tobacco Use Types Packs/Day [...] ble dorsalis pedis pulse. Impression NONUNION FRACTURE ([id number]) Potentially symptomatic tibiotalar nonunion. Plan At this [...] used: Print then Give to Patient RxID: [id number] PERCOCET 10-325 MG TABS (OXYCODONE-ACETAMINOPHEN) 1-2 PO Q 4-6 Hours PRN Pain # 90 x 0 Entered by: Sharona Scott Authorized by: Adelaida Olivas MD Signed by: Sharona Scott on 03/16/2017 Method used: Print then Give to Patient RxID: [id number] CYCLOBENZAPRINE HCL 10 MG TABS (CYCLOBENZAPRINE HCL) 1 tablet at bedtime #30 x 0 Entered by: Sharona Scott Authorized by: Adelaida Olivas MD Signed by: Sharona Scott on 03/16/2017 Method used: Print then Give to Patient RxID: [id number] Vital Signs BMI: 43.32 She was encourage [...] no changes are required. Signed by Adelaida Oilvas MD on March 16, 2017 at 4:32 PM documented in this encounter Plan of Treatment Not on filedocumented as of this encounter Visit Diagnoses Not on filedocumented in this encounter Additional Health Concerns Last Indicated Resolved Time Infection Onset Date 08/30/2017 04/19/2018 12:13 PM CDT Influenza 08/30/2017 08/30/2019 08/30/2019 1:09 PM PAN PUSHER Influenza - Rule Out 08/30/2019 08/31/2019 09/17/2019 8:17 AM PAN PUSHER RSV 08/31/2019 documented as of this encounter
--- OUTSIDE RECORDS SUMMARY | 2020-03-16 14:06 | XMS REPORT | Encounter Summary ---
Author Author [facility] Organization [facility] Address Unknown Phone Unavailable Care Team Providers Care Mold Presser Name Role Phone Ebony Sharp MD PCP Encounter Details Care Team Description Date Type Department Adelaida Olivas MD [address] [facility] [address] [place], [place] [address] Other synovitis and tenosynovitis, left ankle and foot (Primary Dx); Other specified disorders of tendon, left ankle and foot; Osteoarthritis of left ankle, unspecified osteoarthritis type 03/29/2017 Transcribe [facility] [phone] Social History Date Tobacco Use Types Packs/Day [...] CDT) WBC 6.56 4.00 - 11.00 TH/uL [facility] RBC 4.00 4.00 - 5.00 MIL/uL [facility] Hemoglobin 13.2 12.0 - 15.0 g/dL [facility] Hematocrit 41 36 - 45 % [facility] MCV 103 (H) 80 - 99 fL [facility] MCH 33 27 - 34 pg [facility] MCHC 32 32 - 36 % [facility] RDW 13.6 9.0 - 14.5 % [facility] Platelet Count 140 140 - 400 TH/uL [facility] MPV 10.0 9.4 - 12.3 fL [facility] Specimen Blood Performing Organization Address City/State/Zipcode Ph one Number [facility] [address] [place], [place] [phone] [facility] [address] [place] [address], [place] [phone] [facility] * Prothrombin Time/INR (03/29/2017 11:09 AM CDT) Protime 13.1 11.4 - 15.0 sec [facility] INR 1.0 0.8 - 1.2 [facility] Specimen Blood Performing Organization Address City/State/[facility] Ph one Number [facility] [address] [place] [address] [facility] [address] [place] [address], [place] [phone] [facility] * APTT (03/29/2017 11:09 AM CDT) APTT 27 22 - 34 sec [facility] Specimen Blood Performing Organization Address City/State/Zipcode Ph one Number [facility] [address] [place], [place] [phone] [facility] [address] [place] [facility] [address], [place] [phone] [facility] * Basic Metabolic Panel (03/29/2017 11:09 AM CDT) [facility] Sodium 141 133 - 147 MEQ/L [facility] [...] eGFR Female AA 87 60 - 200 [facility] Comment: [facility] Chronic Kidney Disease less [facility] than 60 mL/min/1.73 sq.m Kidney failure less than 15 mL/min/1.73 sq.m eGFR Female 72 60 - 200 [facility] Non-AA Comment: [facility] Chronic Kidney Disease less [facility] than 60 mL/min/1.73 sq.m Kidney failure less than 15 mL/min/1.73 sq.m Specimen Blood Performing Organization Address City/State/Zipcode Ph one Number [facility] [address] [facility] [place] [facility] [place] [address] [facility] [address] [facility] [place] [facility] [place] [address], [place] [phone] [facility] documented in this encounter Visit Diagnoses Diagnosis Other synovitis and tenosynovitis, left ankle and foot Other specified disorders of tendon, le ft ankle and foot Osteoarthritis of left ankle, unspecifi ed osteoarthritis type documented in this encounter Additional Health Concerns Last Indicated Resolved Time Infection Onset Date 08/30/2017 04/19/2018 12:13 PM CDT Influenza 08/30/2017 08/30/2019 08/30/2019 1:09 PM EVENT MARKETING INTERN Influenza - Rule Out 08/30/2019 08/31/2019 09/17/2019 8:17 AM EVENT MARKETING INTERN RSV 08/31/2019 documented as of this encounter
--- OUTSIDE RECORDS SUMMARY | 2020-03-16 14:06 | XMS REPORT | Encounter Summary ---
Author Author [facility] Organization [facility] Address Unknown Phone Unavailable Care Team Providers Care Nurse Transitional Name Role Phone Ebony Sharp MD PCP Encounter Details Care Team Description Date Type Department Jennifer Feng RN 04/07/2017 Telephone [facility] Primar y Care - East [address] [facility] [address] [place], [place] [phone] Social History Date Tobacco Use Types Packs/Day [...] - 04/07/2017 2:28 PM CDT Renee mcfarlane [facility] called requesting a surgical approval for pt. [...]
--- OUTSIDE RECORDS SUMMARY | 2020-03-16 14:06 | XMS REPORT | Encounter Summary ---
Author Author [facility] Organization [facility] Address Unknown Phone Unavailable Care Team Providers Care Market Relationship Manager Name Role Phone Ebony Sharp MD PCP Reason for Visit * Reason Comments Other Encounter Details Care Team Description Date Type Department Ebony Sharp MD [address] [facility] [address] [place], [place] [phone] Other 03/21/2017 Refill [facility] Primar y Care - East [address] [facility] [address] [place], [place] [address] Social History Date Tobacco Use Types Packs/Day [...] CDT Influenza 08/30/2017 08/30/2019 08/30/2019 1:09 PM HEAT SEAL OPERATOR Influenza - Rule Out 08/30/2019 08/31/2019 09/17/2019 8:17 AM HEAT SEAL OPERATOR RSV 08/31/2019 documented as of this encounter
--- OUTSIDE RECORDS SUMMARY | 2020-03-16 14:06 | XMS REPORT | Encounter Summary ---
Author Author [facility] Organization [facility] Address Unknown Phone Unavailable Care Team Providers Care Section Leader Screen Printing Name Role Phone Ebony Sharp MD PCP Encounter Details Care Team Description Date Type Department Adelaida Olivas MD [address] [facility] [address] [place] [address] 03/30/2017 [facility] [address] [facility] [address] [place] [address] Social History Date Tobacco Use [...] after surgery. Patient can be reached at [phone]. Call taken by: Tree Painting on March [...] Call Additional Follow-up Details: Faxed order to [facility]. Additional Follow-up by: Yuki Weber on [...] CDT Influenza 08/30/2017 08/30/2019 08/30/2019 1:09 PM DINNER COOK Influenza - Rule Out 08/30/2019 08/31/2019 09/17/2019 8:17 AM DINNER COOK RSV 08/31/2019 documented as of this encounter
--- OUTSIDE RECORDS SUMMARY | 2020-03-16 14:06 | XMS REPORT | Encounter Summary ---
Author Author [facility] Organization [facility] Address Unknown Phone Unavailable Care Team Providers Care Contact Center Representative Name Role Phone Ebony Sharp MD PCP Encounter Details Care Team Description Date Type Department Adelaida Olivas MD [address] [facility] [address] [place], [place] [phone] Other synovitis and tenosynovitis, left ankle and foot; Other specified disorders of tendon, left ankle and foot; Osteoarthritis of left ankle, unspecified osteoarthritis type 03/29/2017 Lab [facility] [phone] Social History Date Tobacco Use Types Packs/Day [...] WBC 6.56 4.00 - 11.00 TH/uL [facility] RBC 4.00 4.00 - 5.00 MIL/uL [id number] Material MixS [facility] Hemoglobin 13.2 12.0 - 15.0 g/dL [facility] Hematocrit 41 36 - 45 % [facility] Abdi [employer] MCV 103 (H) 80 - 99 fL [facility] MCH 33 27 - 34 pg [facility] MCHC 32 32 - 36 % [facility] RDW 13.6 9.0 - 14.5 % [facility] Abdi [facility] Platelet Count 140 140 - 400 TH/uL [facility] MPV 10.0 9.4 - 12.3 fL [facility] Specimen Blood Performing Organization Address City/State/Zipcode Ph one Number [facility] [address] [place] [facility] [place] [phone] [facility] [address] [place] [address], [facility] * Prothrombin Time/INR (03/29/2017 11:09 AM CDT) Protime 13.1 11.4 - 15.0 sec [facility] INR 1.0 0.8 - 1.2 [facility] Specimen Blood Performing Organization Address City/[facility] Ph one Number [facility] [address] [facility] [place], [place] [phone] [facility] [address] [facility] [place] [address], [facility] * APTT (03/29/2017 11:09 AM CDT) APTT 27 22 - 34 sec [facility] Specimen Blood Performing Organization Address [facility] one [facility] [address] [facility] [place] [place] [address] [facility] [address] [facility] [place] [address], [place] [phone] [facility] * Basic Metabolic Panel (03/29/2017 11:09 AM CDT) Sodium 141 133 - 147 MEQ/L [facility] Potassium 4.1 3.5 - 5.3 MEQ/L [facility] Chloride 102 96 - 112 MEQ/L [facility] Carbon Dioxide 27 20 - 32 MEQ/L [facility] Anion Gap 12 5 - 17 [facility] Calcium 9.2 8.4 - 10.5 mg/dL [facility] Glucose 222 (H) 70 - 100 mg/dL [facility] Blood Urea 13 7 - 26 mg/dL [facility] Nitrogen [facility] [...] [facility] [address] [facility] [place] [address] [facility] [address] [facility] [place] [address], [facility] documented in this encounter Visit Diagnoses Diagnosis Other synovitis and tenosynovitis, left ankle and foot Other specified disorders of tendon, le ft ankle and foot Osteoarthritis of left ankle, unspecifi ed osteoarthritis type documented in this encounter
--- OUTSIDE RECORDS SUMMARY | 2020-03-16 14:06 | XMS REPORT | Encounter Summary ---
Author Author [facility] Organization [facility] Address Unknown Phone Unavailable Care Team Providers Care Hvac Tech Name Role Phone Ebony Sharp MD PCP Reason for Visit * Reason Comments Other Encounter Details Care Team Description Date Type Department Ebony Sharp MD [address] [facility] [address] [place], [place] [phone] Other 02/25/2017 Refill [facility] Primar y Care - East [address] [facility] [address] [place], [place] [address] Social History Date Tobacco Use Types Packs/Day [...] CDT Influenza 08/30/2017 08/30/2019 08/30/2019 1:09 PM E COMMERCE MARKETING ANALYST Influenza - Rule Out 08/30/2019 08/31/2019 09/17/2019 8:17 AM E COMMERCE MARKETING ANALYST RSV 08/31/2019 documented as of this encounter
--- OUTSIDE RECORDS SUMMARY | 2020-03-16 14:06 | XMS REPORT | Encounter Summary ---
Author Author [facility] Organization [facility] Address Unknown Phone Unavailable Care Team Providers Care Rosin Barrel Filler Name Role Phone Ebony Sharp MD PCP Encounter Details Care Team Description Date Type Department Adelaida Olivas MD [address] [facility] [address] [place] [address] 04/02/2017 Hist-Telephone [facility] [address] [facility] [address] [place] [address] Social History Date Tobacco Use [...] called requesting a call from Dr. Olivas syrup mixer assistant she w anted to go over her upcoming surgery. Patient can be reached at [phone] Call taken by: [employer] on April 02, 2017 9:34 AM Follow-up for Phone Call Follow-up Details: I left a message for a return phone call. Follow-up by: Kari Young on April 05, 2017 11:54 AM Additional Follow-up for Phone Call Additional Follow-up Details: Patient is returning the above call. Please call b ack at [phone] Additional Follow-up by: Trina Rhodes on April [...] CDT Influenza 08/30/2017 08/30/2019 08/30/2019 1:09 PM TECHNOLOGY ENGINEER Influenza - Rule Out 08/30/2019 08/31/2019 09/17/2019 8:17 AM TECHNOLOGY ENGINEER RSV 08/31/2019 documented as of this encounter
--- OUTSIDE RECORDS SUMMARY | 2020-03-16 14:06 | XMS REPORT | Encounter Summary ---
Author Author [facility] Organization [facility] Address Unknown Phone Unavailable Care Team Providers Care Airplane Flight Attendant Supervisor Name Role Phone Ebony Sharp MD PCP Reason for Visit * Reason Comments Other Encounter Details Care Team Description Date Type Department Ebony Sharp MD [address] [facility] [address] [place], [place] [phone] Other 04/06/2017 Refill [facility] Primar y Care - East [address] [facility] [address] [place], [place] [address] Social History Date Tobacco Use Types Packs/Day [...] CDT Influenza 08/30/2017 08/30/2019 08/30/2019 1:09 PM ETL MANAGER Influenza - Rule Out 08/30/2019 08/31/2019 09/17/2019 8:17 AM ETL MANAGER RSV 08/31/2019 documented as of this encounter
--- OUTSIDE RECORDS SUMMARY | 2020-03-16 14:06 | XMS REPORT | Encounter Summary ---
Author Author [facility] Organization [facility] Address Unknown Phone Unavailable Care Team Providers Care Vocational Horticulture Instructor Name Role Phone Ebony Sharp MD PCP Reason for Visit * Reason Comments Other Encounter Details Care Team Description Date Type Department Ebony Sharp MD [address] [facility] [address] [place], [place] [phone] Other 04/05/2017 Refill [facility] Primar y Care - East [address] [facility] [address] [place], [place] [address] Social History Date Tobacco Use Types Packs/Day [...] CDT Influenza 08/30/2017 08/30/2019 08/30/2019 1:09 PM TELEGRAPH REPEATER INSTALLER Influenza - Rule Out 08/30/2019 08/31/2019 09/17/2019 8:17 AM TELEGRAPH REPEATER INSTALLER RSV 08/31/2019 documented as of this encounter
--- OUTSIDE RECORDS SUMMARY | 2020-03-16 14:06 | XMS REPORT | Encounter Summary ---
Author Author [facility] Organization [facility] Address Unknown Phone Unavailable Care Team Providers Care Precinct Captain Name Role Phone Ebony Sharp MD PCP Encounter Details Care Team Description Date Type Department Ebony Sharp MD [address] [facility] [address] [place], [place] [id number] Essential hypertension; Hyperlipidemia, unspecified hyperlipidemia type; IDDM (insulin dependent diabetes mellitus) (HCC) 04/08/2017 [facility] Primar y Care - [facility] [address] [facility] [address] [facility] [place], [place] [id number] Social History Date Tobacco Use Types Packs/Day [...] (04/08/2017 12:49 PM CDT) Creatinine 439.2 mg/dL [facility] Urine Random [facility] Microalbumin 10.40 mg/dL [facility] mg/dl [facility] Microalbumin/Cr 23.68 0.00 - 30.00 ug/mg [facility] eatinine Ratio [facility] Specimen Performing Organization Address [facility] [place] [address] LABORATORIES * Thyroid Stimulating Hormone (04/08/2017 12:49 PM CDT) Thyroid 0.35 (L) 0.47 - 4.68 uIU/mL [facility] S Stimulating [facility] Hormone LABORATORIES Specimen Blood Performing Organization Address [facility] one Number [address] [address] LABORATORIES * Lipid Panel (04/08/2017 12:49 PM CDT) Cholesterol 193 100 - 200 mg/dL [facility] LABORATORIES HDL Cholesterol 54 40 - 110 mg/dL [facility] Non-HDL 139 (H) 0 - 130 mg/dL [facility] Cholesterol [facility] Triglycerides 182 (H) 0 - 150 mg/dL [facility] LDL Cholesterol 103 (H) 0 - 99 mg/dL [facility]IES Cholesterol/HDL 3.6 0.0 - 4.5 [facility] Ratio [facility] Specimen Blood Performing Organization Address [facility] one Number [address] [address] LABORATORIES * Hemoglobin A1C (04/08/2017 12:49 PM CDT) Hemoglobin A1C 8.1 (H) 4.0 - 5.6 % [facility] Comment: REGIONAL Non-diabetic 4.0 - LABORATORIES 5.6 % Prediabetes 5.7 - 6.4 % Diabetes >= 6.5 % Specimen Blood Performing Organization Address City/State/Zipcode Ph one Number [address] [address] LABORATORIES documented in this encounter Visit Diagnoses Diagnosis Essential hypertension Unspecified essential hypertension Hyperlipidemia, unspecified hyperlipide prasanna type IDDM (insulin dependent diabetes [facility]) documented in this encounter
--- OUTSIDE RECORDS SUMMARY | 2020-03-16 14:06 | XMS REPORT | Encounter Summary ---
Author Author [facility] Organization [facility] Address Unknown Phone Unavailable Care Team Providers Care Grocery Supervisor Name Role Phone Ebony Sharp MD PCP Encounter Details Care Team Description Date Type Department Ebony Sharp MD [address] [facility] [address] [place], [place] [id number] 02/26/2017 [facility] [address] [facility] [address] [place], [place] [id number] Social History Date Tobacco Use Types Packs/Day [...]
--- OUTSIDE RECORDS SUMMARY | 2020-03-16 14:06 | XMS REPORT | Encounter Summary ---
Author Author [facility] Organization [facility] Address Unknown Phone Unavailable Care Team Providers Care Candlemaking Laborer Name Role Phone Ebony Sharp MD PCP Reason for Referral * MRI/CAT/PET Scan (Routine) Referred By Contact Referred To Contact Status Reason Specialty Diagnoses / Procedures Adelaida Olivas MD [address] [facility] [address] [place] [address] [place] [address] Closed Radiology Diagnoses Bone fracture P rocedures CT Ankle wo contrast left Reason for Visit * MRI/CAT/PET Scan (Routine) Referred By Contact Referred To Contact Status Reason Specialty Diagnoses / Procedures Adelaida Olvias MD [address] [facility] [address] [place] [address] [place] [address] Closed Radiology Diagnoses Bone fracture P rocedures CT Ankle wo contrast left Encounter Details Care Team Description Date Type Department Adelaida Olivas MD [address] [facility] [address] [place] [address] [phone] Bone fracture 02/18/2017 [facility] [address] [place] [id number] Social History Date Tobacco Use Types Packs/Day [...] the prior exam on . READING SITE: [facility] Narrative Performed At Patient: ISIAH BENÍTEZ Sex#: F # 1950 Jose#: [id number] Location: [facility] Procedure Requested: [id number] CT ANKLE WO CONTRAST LEFT Reason for [...] ISIAH BENÍTEZ Sex#: Paulina # 1950 Jose#: [id number] Location: [facility] Procedure Requested: [id number] CT ANKLE WO CONTRAST LEFT Reason for [...] the prior exam on 12/01/2016. READING SITE: [facility] Performing Organization Address City/State/[facility] Ph one Edgar SIMS documented in this encounter Visit Diagnoses Diagnosis Bone fracture Closed fracture of unspecified bone documented in this encounter
--- OUTSIDE RECORDS SUMMARY | 2020-03-16 14:06 | XMS REPORT | Encounter Summary ---
Author Author [facility] Organization [facility] Address Unknown Phone Unavailable Care Team Providers Care Manager Administrative Name Role Phone Ebony Sharp MD PCP Reason for Referral * MRI/CAT/PET Scan (Routine) Referred By Contact Referred To Contact Status Reason Specialty Diagnoses / Procedures Adelaida Olivas MD [address] [facility] [address] [place] [address] [place] [address] Closed Radiology Diagnoses Bone fracture P rocedures CT Ankle wo contrast left Encounter Details Care Team Description Date Type Department Adelaida Olivas MD [address] [facility] [facility] [facility] [address] [place] [address] [phone] Bone fracture (Primary Dx) 02/16/2017 Transcribe [facility] Social History Date Tobacco Use Types Packs/Day [...] the prior exam on . READING SITE: [facility] Narrative Performed At Patient: ISIAH PATTEN Sex#: Paulina # 1950 Jose#: [id number] Location: [facility] CT Procedure Requested: [id number] CT ANKLE WO CONTRAST LEFT Reason for [...] ISIAH PATTEN Sex#: F # 1950 Jose#: [id number] Location: [facility] Procedure Requested: [id number] CT ANKLE WO CONTRAST LEFT Reason for [...] the prior exam on 12/01/2016. READING SITE: [facility] Performing Organization Address City/State/Zipcode Ph one Edgar ABIDESTINEE documented in this encounter Visit Diagnoses Diagnosis Bone fracture Closed fracture of unspecified bone documented in this encounter Additional Health Concerns Last Indicated Resolved Time Infection Onset Date 08/30/2017 04/19/2018 12:13 PM CDT Influenza 08/30/2017 08/30/2019 08/30/2019 1:09 PM ECONOMIC ADVISER Influenza - Rule Out 08/30/2019 08/31/2019 09/17/2019 8:17 AM ECONOMIC ADVISER RSV 08/31/2019 documented as of this encounter
--- OUTSIDE RECORDS SUMMARY | 2020-03-16 14:06 | XMS REPORT | Encounter Summary ---
Author Author [facility] Organization [facility] Address Unknown Phone Unavailable Care Team Providers Care Patient Access Specialist Name Role Phone Ebony Sharp MD PCP Encounter Details Care Team Description Date Type Department Adelaida Olivas MD [address] [place] [address] [phone] 02/11/2017 Hist-Other [facility] Hospit al [address] [place] [address] Social History Date Tobacco Use Types Packs/Day [...]
--- OUTSIDE RECORDS SUMMARY | 2020-03-16 14:06 | XMS REPORT | Encounter Summary ---
Author Author [facility] Organization [facility] Address Unknown Phone Unavailable Care Team Providers Care Tile Professional Name Role Phone Ebony Sharp MD PCP Encounter Details Care Team Description Date Type Department Adelaida Olivas MD [address] [facility] [address] [place], [place] [phone] 02/19/2017 [facility] [address] [facility] [address] [place], [place] [phone] Social History Date Tobacco Use Types Packs/Day [...] CDT Influenza 08/30/2017 08/30/2019 08/30/2019 1:09 PM PSYCHOLOGIST EXPERIMENTAL Influenza - Rule Out 08/30/2019 08/31/2019 09/17/2019 8:17 AM PSYCHOLOGIST EXPERIMENTAL RSV 08/31/2019 documented as of this encounter
--- OUTSIDE RECORDS SUMMARY | 2020-03-16 14:07 | XMS REPORT | Encounter Summary ---
Author Author [facility] Organization [facility] Address Unknown Phone Unavailable Care Team Providers Care Clinical Partner Name Role Phone Ebony Sharp MD PCP Encounter Details Care Team Description Date Type Department Adelaida Olivas MD [address] [facility] [address] [place] [address] [phone] 01/19/2017 Hist-Other [facility] Hospit al [address] [place] [address] Social History Date Tobacco Use Types Packs/Day [...]
--- OUTSIDE RECORDS SUMMARY | 2020-03-16 14:07 | XMS REPORT | Encounter Summary ---
Author Author [facility] Address Unknown Phone Unavailable Care Team Providers Care School Manager Name Role Phone Ebony Sharp MD PCP Encounter Details Care Team Description Date Type Department Adelaida Olivas MD [address] [facility] [address] [place], [place] [phone] 01/19/2017 Hist-Transcript Aide Orthopaedi c ion Encounter Specialists [address] [facility] [address] [place], [place] [address] Social History Date Tobacco Use Types Packs/Day [...] SYNOVITIS AND TENOSYNOVITIS LEFT ANKLE AND FOOT (LTA22-C99.872) LEFT ANKLE PRIMARY OSTEOARTHRITIS (KLS11-Q84.072) LEFT FOOT GANGLION (XMA16-R08.472) Plan At this point, we did discuss [...] TABS (SIMVASTATIN) as directed VITAMIN D (ERGOCALCIFEROL) 87186 UNIT CAPS (ERGOCALCIFEROL) 31905 units once a w ely [place] CYCLOBENZAPRINE HCL 10 MG TABS (CYCLOBENZAPRINE HCL) [...] used: Print then Give to Patient RxID: [id number] MS CONTIN 15 MG CR-TABS (MORPHINE SULFATE) Take 1 tablet every 12 hours as neede d for pain #56 x 0 Entered by: Kari Young Authorized by: Adelaida Olivas MD Signed by: Kari Young on 01/19/2017 Method used: Print then Give to Patient RxID: [id number] CYCLOBENZAPRINE HCL 10 MG TABS (CYCLOBENZAPRINE HCL) 1 tablet at bedtime #30 x 0 Entered by: Sharona Scott Authorized by: Adelaida Olivas MD Signed by: Kari Young on 01/19/2017 Method used: Print then Give to Patient RxID: [id number] Vital Signs Ht: 62 in. Wt: 236 [...] CDT Influenza 08/30/2017 08/30/2019 08/30/2019 1:09 PM GIRL FRIDAY Influenza - Rule Out 08/30/2019 08/31/2019 09/17/2019 8:17 AM GIRL FRIDAY RSV 08/31/2019 documented as of this encounter
--- OUTSIDE RECORDS SUMMARY | 2020-03-16 14:07 | XMS REPORT | Encounter Summary ---
Author Author [facility] Organization [facility] Address Unknown Phone Unavailable Care Team Providers Care Visual Training Aide Name Role Phone Ebony Sharp MD PCP Encounter Details Care Team Description Date Type Department Adelaida Olivas MD [address] [facility] [address] [place], [place] [address] 02/11/2017 Hist-Transcript Aide Orthopaedi c ion Encounter Specialists [address] [facility] [address] [place], [place] [address] Social History Date Tobacco Use Types Packs/Day [...] and dorsiflex her midfoot. 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 Plan At this [...] used: Print then Give to Patient RxID: [id number] MS CONTIN 15 MG CR-TABS (MORPHINE SULFATE) Take 1 tablet every 12 hours as neede d for pain #56 x 0 Entered by: Sharona Scott Authorized by: Adelaida Olivas MD Signed by: Sharona Scott on 02/11/2017 Method used: Print then Give to Patient RxID: [id number] Vital Signs Ht: 62 in. Wt: 236 [...] CDT Influenza 08/30/2017 08/30/2019 08/30/2019 1:09 PM BIOLOGIST Influenza - Rule Out 08/30/2019 08/31/2019 09/17/2019 8:17 AM BIOLOGIST RSV 08/31/2019 documented as of this encounter
--- OUTSIDE RECORDS SUMMARY | 2020-03-16 14:07 | XMS REPORT | Encounter Summary ---
Author Author [facility] Organization [facility] Address Unknown Phone Unavailable Care Team Providers Care American Board Certified Orthotist Name Role Phone Ebony Sharp MD PCP Reason for Visit * Reason Comments Follow-up eldon lft ankle [id number] [facility] TVX: Appt. Reminder (02/09/2017 07:01 PM) Phone Call - Message Delivered (N=Answered - Entire Message) Encounter Details Care Team Description Date Type Department Adelaida Olivas MD [address] [facility] [address] [place] [address] [phone] 02/11/2017 Hist-Appointmen Aide Orthopaedi c teresa Specialists [address] [facility] [address] [place] [address] Social History Date Tobacco Use Types Packs/Day [...]
--- OUTSIDE RECORDS SUMMARY | 2020-03-16 14:07 | XMS REPORT | Encounter Summary ---
Author Author [facility] Organization [facility] Address Unknown Phone Unavailable Care Team Providers Care Grader Operator Name Role Phone Ebony Sharp MD PCP Encounter Details Care Team Description Date Type Department Ebony Sharp MD [address] [facility] [address], [place] [address] 01/19/2017 Documentation [facility] [address] [facility] [address] [place] [address] Social [...]
--- OUTSIDE RECORDS SUMMARY | 2020-03-16 14:07 | XMS REPORT | Encounter Summary ---
Author Author [facility] Organization [facility] Address Unknown Phone Unavailable Care Team Providers Care Head Animal Trainer Name Role Phone Ebony Sharp MD PCP Reason for Visit * Reason Comments Chest pain Mid-sternal chest pain that started around 1525 while pt was over at [facility]. Pain has been intermit tent, pain comes in waves. Pain radiates straight through to back. Juan sea present. Denies vomiting. States she got diaphoretic when it star lexis. Nothing makes better or worse. Denies cardiac history. Encounter Details Care Team Description Date Type Department Tarun Turk MD [address] [place] [address] [phone] Chest pain, unspecified type (Primary Dx ); Anxiety 02/11/2017 Emergency [facility] [address] [place] [facility] [place] [address] Social History Date Tobacco Use Types Packs/Day [...] sent through Care Everywhere.* CHEST PAIN, NONCARDIAC (CZECH) documented in this encounter Medications at Time [...] - 02/11/2017 4:38 PM CDT 02/11/2017 [facility] History Chief Complaint Patient presents with Chest pain Mid-sternal chest pain that started around 1525 while pt was over at [facility]. Pain has been intermittent, pain comes in [...] Discussed with patient risks,indications to return to [facility] ED, and importance of follow up. [...] Result No acute cardiopulmonary process. READING SITE: [facility] persistent L linear opacity in lung-unchange compared to 1 week ago withno evide nce of consolidation-interpreted by me DIAGNOSIS Problem List Items Addressed This Visit None Visit Diagnoses Chest pain, unspecified type - Primary Anxiety FOLLOW UP Ebony Sharp MD [address] [facility] [address] [place] [address] As needed, If symptoms worsen Discussed with the patient./family/guardian the plan and all questioned fully an swered. Return precautions instructed. ED Course ED Clinical Impression 1. Chest pain, unspecified type 2. Anxiety Tarun Turk MD 02/11/17 1721 Tarun Turk MD 02/11/17 6828 * Janna Stone, RN - 02/11/2017 4:25 [...] She was walking to check out at [facility] when pain started. It was 10/10 pain when it started, it has subsi ded some. She had a similar experience a few years ago and had cardiac workup a nd it was heartburn. * Ebony Stearns RN - 02/11/2017 3:45 PM CDT Bed: [facility] Expected date: Expected time: Means of [...] No acute cardiopulmonary process. LEVI READING SITE: [facility] Narrative Performed At Patient: ISIAH BENÍTEZ Sex#: F # 1950 Jose#: [id number] Location: [facility] ED SED-16 Procedure Requested: [id number] XR CHEST SINGLE VIEW FRONTAL Reason for [...] ISIAH BENÍTEZ Sex#: F # 1950 Jose#: [id number] Location: [facility] ED SED- Procedure Requested: [id number] XR CHEST SINGLE VIEW FRONTAL Reason for [...] SITE: [facility] Performing Organization Address [facility] one Edgar SIMS * Troponin 0 hr (02/11/2017 4:25 PM CDT) Troponin <0.01 0.00 - 0.03 ng/mL [facility] Comment: [facility] Troponin Value [facility] Interpretation 0.00 - 0.03 Healthy 0.04 - 0.12 Increased Cardiac Risk >0.12 Myocardial Infarction Troponin may not become elevated until 6 to 8 hours after onset of symptoms. Specimen Blood Performing Organization Address [facility] Ph one Number [facility] [address] [place] [address] [facility] [address] ALMEIDA [facility] [place] [address], [facility] * Prothrombin Time/INR - ONLY if patient is on Warfarin (02/11/2017 4:25 PM CDT) Protime 12.2 11.4 - 15.0 sec [facility] INR 0.9 0.8 - 1.2 [facility] Specimen Blood Performing Organization Address City/State/Zipcode Ph one Number [facility] [address] AL[place] [facility] [place], [place] [phone] [facility] [address] ELLE [facility] [place] [address], [facility] * CBC and Diff (manual diff if necessary) (02/11/2017 4:25 PM CDT) WBC 10.87 4.00 - 11.00 TH/uL [facility] RBC 4.23 4.00 - [...] LAB %Lymphocytes 30 15 - 47 % [facility] %Monocytes 8 0 - 12 % [facility] AL[facility] %Eosinophils 2 0 - 7 % [facility] AL[facility]ERT [facility] %Basophils 0 0 - 2 % [facility] # Granulocytes 6.49 1.7 - 6.8 TH/uL KATEShazia ZAZUETA [facility] # Lymphocytes 3.23 1.0 - 3.3 TH/uL [facility] ALBERT [facility] # Monocytes 0.89 0.2 - 0.9 TH/uL [facility] # Eosinophils 0.23 0.0 - 0.4 TH/uL [facility] # Basophils 0.03 0.0 - 0.1 TH/uL [facility] ALBERT [facility] Specimen Blood Performing Organization Address City/State/[facility] Ph one Number [facility] ZAZUETA'Shazia [address] [facility], [place] [phone] [facility] PRICE MARBINS [address] [place] [address], [facility] * Comprehensive Metabolic Panel (02/11/2017 4:25 PM CDT) [facility] Sodium 139 133 - 147 MEQ/L KATEShazia PRICE MARBIN [facility] Potassium 3.8 3.5 - 5.3 MEQ/L [facility] Chloride 100 96 - 112 MEQ/L KATE ALBERT MARBIN [facility] Carbon Dioxide 32 20 - 32 MEQ/L [facility]ERT [facility] Anion Gap 8 5 - 17 [facility] PRICE MARBIN [facility] Calcium 8.8 8.4 - 10.5 mg/dL KATEShazia [facility] Glucose 220 (H) 70 - 100 mg/dL [facility] Protein Total 7.5 6.0 - 8.2 g/dL [facility] Serum [facility] Albumin 4.0 3.5 - 5.0 g/dL [facility] Alkaline 105 42 - 140 IU/L [facility] Phosphatase [facility] Alanine 43 13 - 69 IU/L [facility] Aminotransferas [facility] e [facility] Aspartate 40 15 - 46 IU/L [facility] Aminotransferas [facility] e [facility] Bilirubin Total 0.4 0.2 - 1.3 mg/dL [facility] Blood Urea 19 7 - 26 mg/dL [facility] Nitrogen [facility] Creatinine 0.7 0.4 - 1.1 mg/dL [facility] eGFR Female AA 101 60 - 200 [facility] Comment: [facility] Chronic Kidney Disease less [facility] than 60 mL/min/1.73 sq.m Kidney failure less than 15 mL/min/1.73 sq.m eGFR Female 84 60 - 200 [facility] Non-AA Comment: [facility] Chronic Kidney Disease less [facility] than 60 mL/min/1.73 sq.m Kidney failure less than 15 mL/min/1.73 sq.m Specimen Blood Performing Organization Address City/State/Zipcode Ph one Number [facility] [address] [place] [facility] [place] [address] [facility] [address] [place] [address], [facility] * Electrocardiogram (ECG) (02/11/2017 3:44 PM CDT) Specimen Narrative Performed At ANDREW [facility] ED Test Date: 2017-02-11 Pat Name: ISIAH BENÍTEZ Department: ERS Room: SED Gender: Female Preparer Making Department: [id number] : 1950 Requested By: TARUN TURK Order Number: [id number] Reading MD: Measurements Intervals [place] Rate: 75 P: 48 [place]: 144 QRS: 53 QRSD: 106 T: 38 QT: 400 QTc: 447 Interpretive Statements SINUS RHYTHM Compared to ECG 02/04/2017 12:20:16 No significant changes Procedure Note Interface, External Ris In 02/11/2017 3:47 PM CDT [facility] ED Test Date: 2017-02-11 Pat Name: ISIAH BENÍTEZ Department: ERS Room: SED Gender: Female Preparer Making Department: [id number] : 1950 Requested By: TARUN TURK Order Number: [id number] Reading MD: Measurements Intervals [place] Rate: 75 P: 48 [place]: 144 QRS: 53 QRSD: 106 T: 38 QT: 400 QTc: 447 Interpretive Statements SINUS RHYTHM Compared to ECG 02/04/2017 12:20:16 No significant changes Performing Organization Address City/State/Zipcode Ph one Number [facility] documented in this encounter Visit Diagnoses Diagnosis Chest pain, unspecified type Anxiety Anxiety state, unspecified documented in this encounter
--- OUTSIDE RECORDS SUMMARY | 2020-03-16 14:07 | XMS REPORT | Encounter Summary ---
Author Author [facility] Organization [facility] Address Unknown Phone Unavailable Care Team Providers Care Billet Examiner Name Role Phone Ebony Sharp MD PCP Encounter Details Care Team Description Date Type Department Adelaida Olivas MD [address] [facility] [address] [place] [address] [phone] 12/24/2016 Hist-Other [facility] Hospit al [address] [place] [address] Social History Date Tobacco Use Types Packs/Day [...]
--- OUTSIDE RECORDS SUMMARY | 2020-03-16 14:07 | XMS REPORT | Encounter Summary ---
Author Author [facility] Organization [facility] Address Unknown Phone Unavailable Care Team Providers Care Driller Multiple Spindle Name Role Phone Ebony Sharp MD PCP Reason for Visit * Reason Comments Follow-up TIM lft ankle 01/12/2017 c mlTVX: Appt. Reminder (01/15/2017 06:28 PM) Phone Call - Responded "Yes" (Y=Answere d - Yes) Encounter Details Care Team Description Date Type Department Adelaida Olivas MD [address] [facility] [address] [place] [address] [phone] 01/19/2017 Hist-Appointmen Aide Smithi c t Specialists [address] [facility] [address] [place] [address] Social History Date Tobacco Use Types Packs/Day [...]
--- OUTSIDE RECORDS SUMMARY | 2020-03-16 14:07 | XMS REPORT | Encounter Summary ---
Author Author [facility] Organization [facility] Address Unknown Phone Unavailable Care Team Providers Care Advertising Sales Representative Name Role Phone Ebony Sharp MD PCP Encounter Details Care Team Description Date Type Department Ebony Sharp MD [address] [facility] [address] [place], [place] [id number] 01/08/2017 Documentation [facility] [address] [facility] [address] [place] [address] Social History Date Tobacco Use [...]
--- OUTSIDE RECORDS SUMMARY | 2020-03-16 14:07 | XMS REPORT | Encounter Summary ---
Author Author [facility] Organization [facility] Address Unknown Phone Unavailable Care Team Providers Care Field Investigator Name Role Phone Ebony Sharp MD PCP Reason for Visit * Reason Comments Shortness of Breath x 3 weeks Encounter Details Care Team Description Date Type Department Ebony Carroll NP [address] [facility] [address] [place] [address] COPD exacerbation (HCC) (Primary Dx) 02/04/2017 Office Visit [facility] [address] [facility] [address] [place] [address] Social History Date Tobacco Use [...] encounter Patient Instructions * Patient Instructions* [place]ov[place], MANUFACTURING TECHNICIAN - 02/04/2017 8:36 AM CDT Take doxycycline [...] your ankles gets worse Dizziness or weakness [id number] [employer] [address] [place] [address] 7. All rights reserved. This information is [...] your ankles gets worse Dizziness or weakness [phone] [employer] [place] [address], [place], [place] [address] 7. All rights reserved. This information is not intended as a substitute for pro fessional medical care. Always follow your healthcare professional's instruction s. documented in this encounter Plan of Treatment Not on filedocumented as of this encounter Visit Diagnoses Diagnosis COPD exacerbation (HCC) Obstructive chronic bronchitis with exa cerbation documented in this encounter
--- OUTSIDE RECORDS SUMMARY | 2020-03-16 14:07 | XMS REPORT | Encounter Summary ---
Author Author [facility] Organization [facility] Address Unknown Phone Unavailable Care Team Providers Care Liaison Planner Name Role Phone Ebony Sharp MD PCP Encounter Details Care Team Description Date Type Department Adelaida Olivas MD [address] [facility] [address] [place], [place] [address] 12/24/2016 Hist-Transcript Aide Orthopaedi c ion Encounter Specialists [address] [facility] [address] [place], [place] [id number] Social History Date Tobacco Use Types Packs/Day [...] subtalar pain. Impression HISTORY KNEE JOINT REPLACEMENT ([id number]) OTHER SPECIFIED DISORDERS OF TENDON LEFT ANKLE AND FOOT (PAQ35-W52.874) LEFT ANKLE PRIMARY OSTEOARTHRITIS (JYQ20-V02.072) DIABETES MELLITUS (NOM05-H38.9) Status post left ankle arthrodesis with continued [...] TABS (SIMVASTATIN) as directed VITAMIN D (ERGOCALCIFEROL) 96389 UNIT CAPS (ERGOCALCIFEROL) 30717 units once a w t[place] CYCLOBENZAPRINE HCL 10 MG TABS (CYCLOBENZAPRINE HCL) [...] used: Print then Give to Patient RxID: [id number] PERCOCET 10-325 MG TABS (OXYCODONE-ACETAMINOPHEN) 1-2 PO Q 4-6 Hours PRN Pain # 60 x 0 Entered by: Sharona Scott Authorized by: Adelaida Olivas MD Signed by: Sharona Scott on 12/24/2016 Method used: Print then Give to Patient RxID: [id number] CYCLOBENZAPRINE HCL 10 MG TABS (CYCLOBENZAPRINE HCL) 1 tablet at bedtime #30 x 0 Entered by: Sharona Scott Authorized by: Adelaida Olivas MD Signed by: Sharona Scott on 12/24/2016 Method used: Print then Give to Patient RxID: [id number] Vital Signs Ht: 62 in. Wt: 236 [...] CDT Influenza 08/30/2017 08/30/2019 08/30/2019 1:09 PM INFECTIOUS DISEASES PHYSICIAN Influenza - Rule Out 08/30/2019 08/31/2019 09/17/2019 8:17 AM INFECTIOUS DISEASES PHYSICIAN RSV 08/31/2019 documented as of this encounter
--- OUTSIDE RECORDS SUMMARY | 2020-03-16 14:07 | XMS REPORT | Encounter Summary ---
Author Author [facility] Organization [facility] Address Unknown Phone Unavailable Care Team Providers Care Psychology Lecturer Name Role Phone Ebony Sharp MD PCP Reason for Visit * Reason Comments Hospital Follow-up TCM CALL Encounter Details Care Team Description Date Type Department Zee Perez RN Hospital Follow-up (TCM CALL ) 02/08/2017 Telephone [facility] [address] [facility] [address] [place], [place] [id number] Social History Date Tobacco Use Types Packs/Day [...] Perez RN - 02/08/2017 8:59 AM CDT [facility] HOSPITAL FOLLOW UP / TRANSITIONAL [...] to be filled and then went at [employer] with her daughter. After eating most of [...] questions at time of call. ADDITIONAL NOTES: [facility] PSYCHOLOGICAL OPERATIONS: Zee Perez RN documented in this encounter Plan of Treatment Not on filedocumented as of this encounter Visit Diagnoses Not on filedocumented in this encounter
--- OUTSIDE RECORDS SUMMARY | 2020-03-16 14:07 | XMS REPORT | Encounter Summary ---
Author Author [facility] Organization [facility] Address Unknown Phone Unavailable Care Team Providers Care Tire And Tube Repairer Name Role Phone Ebony Sharp MD PCP Encounter Details Care Team Description Date Type Department Ebony Sharp MD [address] [facility] [address] [place], [place] [address] 01/19/2017 Documentation [facility] [address] [facility] [address] [place] [address] Social History Date Tobacco Use [...]
--- OUTSIDE RECORDS SUMMARY | 2020-03-16 14:07 | XMS REPORT | Encounter Summary ---
Author Author [facility] Organization [facility] Address Unknown Phone Unavailable Care Team Providers Care Technician Test Systems Name Role Phone Ebony Sharp MD PCP [...] Description Date Type Department Omar Higginbotham MD [address] [place] [address] [phone] [place] [address] [place] [address] [phone] COPD exacerbation (HCC) (Primary Dx); Hypoxia; Epigastric pain 02/04/2017 Emergency [facility] 02/05/2017 [address] [place] [address] Social History Date Tobacco Use Types Packs/Day [...] Hua MD - 02/05/2017 3:30 PM CDT [facility] Hospitalist - Discharge Summary Patient Name: Isiah Benítez Account No: [id number] Date of : 1950 Date of Admission: [...] to be filled and then went at [employer] with her daughter. After eating most of [...] activity as tolerated Scheduled Follow Up Appointments/Studies ([facility]): No future appointments. Additional Discharge Follow [...] Negative Ketones Urine Negative Negative mg/dL Specific [place], UA 1.015 1.001 - 1.030 Hemoglobin Urine [...] or linear fibrosis. No consolidation. READING SITE: [employer] Cardiac Studies during this encouter: No results found. Additional Studies: None Procedures: None Time spent on this inpatient discharge was greater than 30 minutes. Rolo Hua MD [facility] Please page through physician paging. . documented in this encounter Discharge Instructions * Attachments The following attachments cannot be sent through Care Everywhere.* COPD, TREATMENT FOR (LIBERIAN) * COPD FLARE (LIBERIAN) * DIABETES, TYPE 2, UNDERSTANDING (LIBERIAN) * TYPE 2 DIABETES, MANAGING (LIBERIAN) documented in this encounter Medications at Time [...] this encounter Progress Notes * Krystal Olivas, CARGO OPERATIONS AGENT - 02/04/2017 4:26 PM CDT Respiratory Care Services Initial Consultation Note Name: Isiah Benítez CPI: [id number] Isiah Benítez was evaluated per RATE Consultation [...] Sheryl Paredes, - 02/04/2017 3:[address] [facility] - [facility] & Physical Patient Name: Isiah Do Board Account No: [id number] Date of : 1950 Date of Admission: [...] to be filled and then went at [employer] with her daughter. Af ter eating [...] her father and mother; Stroke in her critical access hospital er and mother. Social History: She [...] 1 tablet (100 mg total) by mo [facility] 2 (two) times a day. morphine (MSIR) [...] results (as indicated), current inpatient medications and decision support analyst notes with pertainent findings noted [...] for treatment as noted above. Sheryl ParedesDO [facility] Please page through physician paging. . documented in this encounter Consult Notes * Zee Roper, RN - 02/05/2017 2:51 PM CDT Diabetes education consult; Pt stated she was diagnosed with DM 2 about 7-8 year s ago and received DM education at [facility] at this time. Reviewed daily DM self [...] this encounter ED Notes * Jamila Rojas, MANAGER DRUG SAFETY - 02/04/2017 11:31 AM CDT 02/04/2017 [facility] History Chief Complaint Patient presents with Abdominal [...] history of COPD and uses oxygen at [facility] as needed. She follows up with the photovoltaic panel installer and is on inhalers/nebulizers . She states [...] Negative Ketones Urine Negative Negative mg/dL Specific [place], UA 1.015 1.001 - 1.030 Hemoglobin Urine [...] generated with voice recognition software. J Digit Imagin2010;24(4):313-8. XR Chest 2 views (PA and lateral) Final Result Left midlung zone linear opacities consistent with subsegmental atelectasis or linear fibrosis. No consolidation. READING SITE: [employer] Juli have reviewed all of the labs [...] - 02/05/2017 1:48 PM CDT Nutrition Education [facility] Patient: Isiah Benítez Age: 66 y.o. : 1950 PRIMARY CARE PROVIDER: Ebony Sharp MD ATTENDING PHYSICIAN: oRlo Hua MD RD consulted for CHO counting Nutrition Education. Chart Reviewed Education Summary: Handout from [facility] provided along with name and number. [...] and 2L 02 as needed, provided by [employer] ). Pt resides with her daughter [...] : Intact, Mood: Appropriate, Speech: Normal, Patient Merchandise Flow Team Leader Name: Daughter- Lauryn Joy, Patient Repres entative Patient's Living Arrangement: House ( Pt resides with her daughter in [facility]) Patients support system has been Support System: Children, Extended family, [facility] Patient has verbalized the following concerns at discharge: Family Concerns: No Pt has Payor: MEDICARE / Plan: MEDICARE PART A B / Product Type: Medicare / Legal Information: Advance Directives: Power of Art Model for health care, Legal Documentation: Requested Advance Directives Status: Follow up needed Patients functioning status prior to admission to the hospital was: Functional Screening: Completely Independent Patient currently uses at home: Assistive Devices: Cane, Wheelchair, Walker, Eye glasses Respiratory items:: Oxygen, CPap (2L oxygen as needed) Oxygen Information: Johann e concentrator, Portable tanks Patient states their Income Source: Not employed. Not employed: Disabled, [place] rnment Assistance: Medicare, SS/SSI Income/Expense Information: Income meets expenses Resources Available: Rx benefits Current Community Resources: (No community services utilized at this time.) Verified that patients primary care physician is Ebony Sharp MD and recei ves their medications from [facility] / ?.?? [address] - [place], [place] - [address] [facility] [address] [facility] [address] [facility] [phone] Zo Luna CREDIT RISK ANALYTICS MANAGER,STOCKBROKING DEALER [phone] * Plan of Care - Juventino Patel [...] and doxycycline. [facility] to be filled and then went at [employer] with her daughter. After eati ng most [...] POC 243 (H) 70 - 100 mg/dL [facility] Specimen Performing Organization Address [facility] Ph one Number [facility] [address] [facility] [place] [address] [facility] [address] [place] [address], [place] [phone] [facility] * Electrocardiogram (ECG) (02/04/2017 12:20 PM CDT) Specimen Narrative Performed At [facility] ED Test Date: 2017-02-04 Pat Name: ISIAH [facility] Department: ERS Room: SED Gender: Female Electrostatic Painter: [id number] : 1950 Requested By: JAMILA ROJAS Order Number: [id number] Reading MD: Measurements Intervals [place] Rate: 80 P: 56 NJ: 168 QRS: 38 QRSD: 102 T: 57 QT: 408 QTc: 471 Interpretive Statements SINUS RHYTHM Compared to ECG 06/30/2016 12:15:13 Sinus tachycardia no longer present T-wave abnormality no longer present Procedure Note Interface, External Ris In - 02/04/2017 12:20 PM CDT [facility] ED Test Date: 2017-02-04 Pat Name: ISIAH [facility] Department: ERS Room: SED Gender: Female Electrostatic Painter: [id number] : 1950 Requested By: JAMILA ROJAS Order Number: [id number] Reading MD: Measurements Intervals [place] Rate: 80 P: 56 NJ: 168 QRS: 38 QRSD: 102 T: 57 QT: 408 QTc: 471 Interpretive Statements SINUS RHYTHM Compared to ECG 06/30/2016 12:15:13 Sinus tachycardia no longer present T-wave abnormality no longer present Performing Organization Address City/[facility] Ph one Number [facility] * XR Chest 2 views (PA and lateral) (02/04/2017 12:10 PM CDT) Specimen Impressions Performed At Left midlung zone linear opacities consistent with M CKESSON subsegmental atelectasis or linear fibr osis. No consolidation. READING SITE: [employer] Narrative Performed At Patient: ISIAH BENÍTEZ Sex#: F # [id number] Jose#: [id number] Location: [facility] SED-01 Procedure Requested: [id number] XR CHEST 2 VIEWS (PA AND LATERAL) [...] ISIAH BENÍTEZ Sex#: F # 1950 Jose#: [id number] Location: [facility] SED- Procedure Requested: [id number] XR CHEST 2 VIEWS (PA AND LATERAL) [...] or linear fibrosis. No consolidation. READING SITE: [facility] [employer] Performing Organization Address City/State/Zipcode Ph one Number [facility] * CT Abdomen Pelvis w contrast (02/04/2017 12:02 PM CDT) Specimen Impressions Performed At Lower pole nonobstructive left renal calculus describ ed above. [facility] Surgical absence of gallbladder and gabriela sydni. No other significant or acute abdominal or pelvic process is identified. NOTE: Parts of this report were generated wit [employer] voice recognition software. J Digit Imagin2010;24(4):534-. Narrative Performed At Patient: ISIAH BENÍTEZ Sex#: F # 1950 Jose#: [id number] Location: [facility] Procedure Requested: [id number] CT ABDOM EN PELVIS W CONTRAST Reason for Exam: RUQ and epigastric p ain Exam Ordered: 02/04/2017 11 26 Exam Date/Time: 02/04/2017 120 2 Begin exam date/time: 02/04/[address] ABDOMEN PELVIS W CONTRAST Indication: RUQ and epigastric pain READING SITE: [facility] Technique: Helical CT images were obtained [...] ISIAH BENÍTEZ Sex#: F # 1950 Jose#: [id number] Location: [facility] ED SED- Procedure Requested: [id number] CT ABDOMEN PELVIS W CONTRAST Reason for Exam: RUQ and epigastric pain Exam Ordered: 02/04/2017 1126 Exam Date/Time: 02/04/2017 1202 Begin exam date/time: 02/04/[address] ABDOMEN PELVIS W CONTRAST Indication: RUQ and epigastric pain READING SITE: [facility] Technique: Helical CT images were obtained [...] software. J Digit Imagin2010;24(4):724-8. Performing Organization Address [facility] one Number [facility] * Troponin (02/04/2017 10:42 AM CDT) Troponin <0.01 0.00 - 0.03 ng/mL [facility] Comment: [facility] Troponin Value [facility] Interpretation 0.00 - 0.03 Healthy 0.04 - 0.12 Increased Cardiac Risk >0.12 Myocardial Infarction Troponin may not become elevated until 6 to 8 hours after onset of symptoms. Specimen Blood Performing Organization Address [facility] one Number [facility] [address] [facility] [place] [address] [facility] [address] [place] [address], [place] [phone] [facility] * Urinalysis Microscopic Only (02/04/2017 10:42 AM CDT) Microscopic RBC 1 - 5 1 - 5 /hpf [facility] Urine [facility]R [facility] Microscopic WBC 1 - [...] Specimen Clean Voided Urine Performing Organization Address City/State/[facility] Ph one Number [facility] [address] [place] [address] [facility] [address] [place] [address], [place] [phone] [facility] * Urinalysis Reflex (02/04/2017 10:42 AM CDT) Appearance, Yellow [facility] Urine [facility]ERT [facility] Glucose Urine Negative Negative mg/dL [facility] Bilirubin Urine Negative Negative [facility] AL[facility]ERT Abdi [facility]BIN[facility] Ketones Urine Negative Negative mg/dL [facility] Specific 1.015 1.001 - 1.030 [facility] [place], UA ALBERT - [facility] Hemoglobin [...] Specimen Clean Voided Urine Performing Organization Address City/[facility] Ph one Number [facility] [address] [facility] [place] [address] [facility] [address] [place] [address], [place] [phone] [facility] * Lipase (02/04/2017 10:42 AM CDT) Lipase 107 23 - 300 IU/L KATE ALBERT MARBIN [facility] Specimen Blood Performing Organization Address City/[facility] Ph one Number [facility] [address] [facility] [place] [address] [facility] [address] [place] [facility] [place] [address], [place] [phone] [facility] * Comprehensive Metabolic Panel (02/04/2017 10:42 AM CDT) Sodium 140 133 - 147 MEQ/L [facility] ALBERT MAR[facility] Potassium 4.3 3.5 - 5.3 MEQ/L [facility] AL[facility]ERT [facility] Chloride 100 96 - 112 MEQ/L [facility] Carbon Dioxide 30 20 - 32 MEQ/L [facility] Anion Gap 10 5 - 17 [facility] Calcium 9.1 8.4 - 10.5 mg/dL [facility] Glucose 183 (H) 70 - 100 mg/dL [facility] Protein Total 7.9 6.0 - 8.2 g/dL [facility] Serum ALBERT [facility] Albumin 4.1 3.5 - 5.0 g/dL [facility] AL[facility]ERT [facility] Alkaline 94 42 - 140 IU/L [facility] Phosphatase AL[facility]ERT [facility] Alanine 25 13 - 69 IU/L [facility] Aminotransferas ALBERT [facility] e [facility] Aspartate 33 15 - 46 IU/L [facility] Aminotransferas ALBERT ZAZUETAS e [facility] Bilirubin Total 0.4 0.2 - 1.3 mg/dL [facility] ALBERT [facility] Blood Urea 17 7 - 26 mg/dL [facility] Nitrogen AL[facility]ERT [facility] Creatinine 0.8 0.4 - 1.1 mg/dL [facility] ALBERT [facility] eGFR Female AA 87 60 - 200 [facility] Comment: [facility] AGUSTINS Chronic Kidney Disease less [facility] than 60 mL/min/1.73 sq.m Kidney failure less than 15 mL/min/1.73 sq.m eGFR Female 72 60 - 200 [facility] Non-AA Comment: ALBERT AGUSTINS Chronic Kidney Disease less [facility] than 60 mL/min/1.73 sq.m Kidney failure less than 15 mL/min/1.73 sq.m Specimen Blood Performing Organization Address City/State/[facility] Ph one Number [facility] [address] [facility] [place], [place] [id number] [facility] KATEEugenia PRICE VAMSIS [address] [facility] [place] [address], [facility] * CBC and Diff (manual diff if necessary) (02/04/2017 10:42 AM CDT) WBC 8.93 4.00 - 11.00 TH/uL SHANTE[facility] AGUSTIN [facility] RBC 3.97 (L) 4.00 - 5.00 MIL/uL [facility] Eugenia ZAZUETAS [facility] Hemoglobin 12.7 [...] [facility] [address] [place] [address] [facility] [address] [address] [place] [address], [facility] documented in this encounter Visit [...] moderate (4-6) or severe (7-10) pain, Starting [facility] 02/04/17 at 1551, Administer over 2 [...]
--- OUTSIDE RECORDS SUMMARY | 2020-03-16 14:08 | XMS REPORT | Encounter Summary ---
Author Author [facility] Organization [facility] Address Unknown Phone Unavailable Care Team Providers Care Tamping Machine Operator Road Forms Name Role Phone Ebony Sharp MD PCP Reason for Visit * Reason Comments Follow-up eldon lft ankle [phone] [facility] TVX: Appt. Reminder (12/01/2016 06:52 PM) Phone Call - Message Delivered (X=Answering [place]) Encounter Details Care Team Description Date Type Department Adelaida Olivas MD [address] [facility] [address] [place] [address] [phone] 12/03/2016 Hist-Appointmen Aide Orthopaedi c teresa Specialists [address] [facility] [address] [place] [address] Social History Date Tobacco Use Types Packs/Day [...]
--- OUTSIDE RECORDS SUMMARY | 2020-03-16 14:08 | XMS REPORT | Encounter Summary ---
Author Author [facility] Organization [facility] Address Unknown Phone Unavailable Care Team Providers Care Rn Case Management Name Role Phone Ebony Sharp MD PCP Encounter Details Care Team Description Date Type Department Adeliada Olivas MD [address] [facility] [address] [place] [address] 12/02/2016 [facility] [address] [facility] [address] [place], [place] [address] Social History Date Tobacco Use Types Packs/Day [...] Additional Follow-up Details: faxing information over to [employer] Additional Follow-up by: Edith Bautista on December 04, 2016 6:47 AM documented in this encounter Plan of Treatment Not on filedocumented as of this encounter Visit Diagnoses Not on filedocumented in this encounter Additional Health Concerns Last Indicated Resolved Time Infection Onset Date 08/30/2017 04/19/2018 12:13 PM CDT Influenza 08/30/2017 08/30/2019 08/30/2019 1:09 PM SERVICE CREW SUPERVISOR Influenza - Rule Out 08/30/2019 08/31/2019 09/17/2019 8:17 AM SERVICE CREW SUPERVISOR RSV 08/31/2019 documented as of this encounter
--- OUTSIDE RECORDS SUMMARY | 2020-03-16 14:08 | XMS REPORT | Encounter Summary ---
Author Author [facility] Organization [facility] Address Unknown Phone Unavailable Care Team Providers Care Cnc Specialist Name Role Phone Ebony Sharp MD PCP Encounter Details Care Team Description Date Type Department Adelaida Olivas MD [address] [facility] [address] [place], [place] [address] 12/23/2016 Hist-Telephone [facility] [address] [facility] [address] [place], [place] [address] Social History Date Tobacco Use Types Packs/Day [...] Phone Note Call from Other Clinic Caller: Sider Mechanic Call For: bone stimulator Summary of call: [...] CDT Influenza 08/30/2017 08/30/2019 08/30/2019 1:09 PM WOOD CRAFTER Influenza - Rule Out 08/30/2019 08/31/2019 09/17/2019 8:17 AM WOOD CRAFTER RSV 08/31/2019 documented as of this encounter
--- OUTSIDE RECORDS SUMMARY | 2020-03-16 14:08 | XMS REPORT | Encounter Summary ---
Author Author [facility] Organization [facility] Address Unknown Phone Unavailable Care Team Providers Care Compressor Battery Pellets Name Role Phone Ebony Sharp MD PCP Reason for Visit * Reason Comments Other Encounter Details Care Team Description Date Type Department Tiburcio Wagoner MD [address] [facility] [address] [place] [address] Other 11/05/2016 Refill [facility] Primde y Care - [facility] [address] [facility] [address] [place], [place] [phone] Social History Date Tobacco Use Types Packs/Day [...]
--- OUTSIDE RECORDS SUMMARY | 2020-03-16 14:08 | XMS REPORT | Encounter Summary ---
Author Author [facility] Organization [facility] Address Unknown Phone Unavailable Care Team Providers Care Kiln Furniture Caster Name Role Phone Ebony Sharp MD PCP Encounter Details Care Team Description Date Type Department Adelaida Olivas MD [address] [facility] [address] [place] [address] 12/04/2016 [facility] [address] [facility] [address] [place], [place] [address] Social History Date Tobacco Use Types Packs/Day [...] Follow-up Details: Received prior authorization request from [facility] for Percocet 10. Started on [facility] - [phone] Answered all questions and submitted to plan. [...] CDT Influenza 08/30/2017 08/30/2019 08/30/2019 1:09 PM POWDERED SUGAR SUPERVISOR Influenza - Rule Out 08/30/2019 08/31/2019 09/17/2019 8:17 AM POWDERED SUGAR SUPERVISOR RSV 08/31/2019 documented as of this encounter
--- OUTSIDE RECORDS SUMMARY | 2020-03-16 14:08 | XMS REPORT | Encounter Summary ---
Author Author [facility] Organization [facility] Address Unknown Phone Unavailable Care Team Providers Care Tanker Driver Name Role Phone Ebony Sharp MD PCP Encounter Details Care Team Description Date Type Department Ebony Sharp MD [address] [facility] [address] [place], [place] [address] 12/15/2016 Documentation [facility] y [facility] [address] [facility] [address] [place] [address] Social History Date Tobacco Use [...]
--- OUTSIDE RECORDS SUMMARY | 2020-03-16 14:08 | XMS REPORT | Encounter Summary ---
Author Author [facility] Organization [facility] Address Unknown Phone Unavailable Care Team Providers Care Director Vaccine Name Role Phone Ebony Sharp MD PCP Encounter Details Care Team Description Date Type Department Adelaida Olivas MD [address] [facility] [address] [place], [place] [address] 12/03/2016 Hist-Transcript [facility] En[facility] Specialists [address] [facility] [address] [place], [place] [phone] Social History Date Tobacco Use Types Packs/Day [...] 4-6 hours PRN Pain VITAMIN D (ERGOCALCIFEROL) 83739 UNIT CAPS (ERGOCALCIFEROL) 81899 units once a w [place] PERCOCET 7.5-325 MG TABS (OXYCODONE-ACETAMINOPHEN) 1-2 PO [...] used: Print then Give to Patient RxID: [id number] CYCLOBENZAPRINE HCL 10 MG TABS (CYCLOBENZAPRINE HCL) 1 tablet at bedtime #30 Ta blet x 0 Entered by: Sharona Scott Authorized by: Adelaida Olivas MD Signed by: Sharona Scott on 12/03/2016 Method used: Print then Give to Patient RxID: [id number] Vital Signs Ht: 62 in. Wt: 236 [...] TABS (SIMVASTATIN) as directed VITAMIN D (ERGOCALCIFEROL) 75977 UNIT CAPS (ERGOCALCIFEROL) 48338 units once a w [place] CYCLOBENZAPRINE HCL 10 MG TABS (CYCLOBENZAPRINE HCL) [...] CDT Influenza 08/30/2017 08/30/2019 08/30/2019 1:09 PM FACULTY RESEARCH ASSISTANT Influenza - Rule Out 08/30/2019 08/31/2019 09/17/2019 8:17 AM FACULTY RESEARCH ASSISTANT RSV 08/31/2019 documented as of this encounter
--- OUTSIDE RECORDS SUMMARY | 2020-03-16 14:08 | XMS REPORT | Encounter Summary ---
Author Author [facility] Organization [facility] Address Unknown Phone Unavailable Care Team Providers Care Still Operator Name Role Phone Ebony Sharp MD PCP Reason for Referral * MRI/CAT/PET Scan (Routine) Referred By Contact Referred To Contact Status Reason Specialty Diagnoses / Procedures Adelaida Olivas MD [address] [facility] [address] [place] [address] [place] [address] Closed Radiology Diagnoses Osteoarthritis of left ankle P rocedures CT Ankle wo contrast left Reason for Visit * MRI/CAT/PET Scan (Routine) Referred By Contact Referred To Contact Status Reason Specialty Diagnoses / Procedures Adelaida Olivas MD [address] [place] [address] Closed Radiology Diagnoses Osteoarthritis of left ankle P rocedures CT Ankle wo contrast left Encounter Details Care Team Description Date Type Department Adelaida Olivas MD 120 [facility] [address] [place] [id number] [phone] Osteoarthritis of left ankle 12/01/2016 [facility] [address] [place] [address] Social History Date Tobacco Use Types Packs/Day [...] predominant soft tissu e swelling. READING SITE: [facility] Narrative Performed At Patient: ISIAH BENÍTEZ Sex#: F # [id number] Jose#: [id number] Location: [facility] CT Procedure Requested: [id number] CT ANKLE WO CONTRAST LEFT Reason for [...] the central joint space, both anteriorly and rn corrections iorly. However, there is also persistent joint [...] ISIAH BENÍTEZ Sex#: F # [id number] Jose#: [id number] Location: [facility] CT Procedure Requested: [id number] CT ANKLE WO CONTRAST LEFT Reason for [...] Anterolateral predominant soft tissue swelling. READING SITE: [facility] Address City/State/Zipcode Ph one Number [place] documented in this encounter Visit Diagnoses Diagnosis Osteoarthritis of left ankle documented in this encounter
--- OUTSIDE RECORDS SUMMARY | 2020-03-16 14:08 | XMS REPORT | Encounter Summary ---
Author Author [facility] Organization [facility] Address Unknown Phone Unavailable Care Team Providers Care Bending Frame Operator Name Role Phone Ebony Sharp MD PCP Encounter Details Care Team Description Date Type Department Wyatt Santacruz MD [address] [facility] [address] [place], [place] [address] 12/04/2016 Hist-Transcript [facility] Encounter Specialists [address] [facility] [address] [place], [place] [address] Social History Date Tobacco Use Types Packs/Day [...] of her right knee. At this ti pr, she is doing better. On careful questioning, [...] TABS (SIMVASTATIN) as directed VITAMIN D (ERGOCALCIFEROL) 33930 UNIT CAPS (ERGOCALCIFEROL) 76811 units once a w [place] CYCLOBENZAPRINE HCL 10 MG TABS (CYCLOBENZAPRINE HCL) [...] MD on 12/09/2016 Method used: Handwritten RxID: [id number] Vital Signs Ht: 62 in. Wt: 236 [...] CDT Influenza 08/30/2017 08/30/2019 08/30/2019 1:09 PM MECHATRONICS ENGINEER Influenza - Rule Out 08/30/2019 08/31/2019 09/17/2019 8:17 AM MECHATRONICS ENGINEER RSV 08/31/2019 documented as of this encounter
--- OUTSIDE RECORDS SUMMARY | 2020-03-16 14:08 | XMS REPORT | Encounter Summary ---
Author Author [facility] Organization [facility] Address Unknown Phone Unavailable Care Team Providers Care Medical Advisor Name Role Phone Ebony Sharp MD PCP Encounter Details Care Team Description Date Type Department Juarez Noble 11/02/2016 Hist-Transcript [facility] Encounter Specialists [address] [facility] [address] [place], [place] [address] Social History Date Tobacco Use Types Packs/Day [...] used: Print then Give to Patient RxID: [id number] Review of Systems General: Complains of sweats. [...] CDT Influenza 08/30/2017 08/30/2019 08/30/2019 1:09 PM COUTURE ALTERATIONS DRESSMAKER Influenza - Rule Out 08/30/2019 08/31/2019 09/17/2019 8:17 AM COUTURE ALTERATIONS DRESSMAKER RSV 08/31/2019 documented as of this encounter
--- OUTSIDE RECORDS SUMMARY | 2020-03-16 14:08 | XMS REPORT | Encounter Summary ---
Author Author [facility] Organization [facility] Address Unknown Phone Unavailable Care Team Providers Care Service Greeter Name Role Phone Ebony Sharp MD PCP Encounter Details Care Team Description Date Type Department Adelaida Olivas MD [address] [facility] [address] [place], [place] [address] 11/24/2016 Hist-Transcript [facility] Encounter Specialists [address] [facility] [address] [place], [place] [address] Social History Date Tobacco Use Types Packs/Day [...] of itself. 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 Plan At [...] 4-6 hours PRN Pain VITAMIN D (ERGOCALCIFEROL) 21077 UNIT CAPS (ERGOCALCIFEROL) 17265 units once a w [place] PERCOCET 7.5-325 MG TABS (OXYCODONE-ACETAMINOPHEN) 1-2 PO [...] used: Print then Give to Patient RxID: [id number] PERCOCET 7.5-325 MG TABS (OXYCODONE-ACETAMINOPHEN) 1-2 PO Q 4-6 Hours PRN Pain #60 x 0 Entered by: Sharona Scott Authorized by: Adelaida Olivas MD Signed by: Sharona Scott on 11/24/2016 Method used: Print then Give to Patient RxID: [id number] SKELAXIN 800 MG TABS (METAXALONE) 1 tablet every 8 hours as needed for pain #90 x 0 Entered by: Sharona Scott Authorized by: Adelaida Olivas MD Signed by: Sharona Scott on 11/24/2016 Method used: Print then Give to Patient RxID: [id number] Vital Signs Ht: 62 in. Wt: 236 [...] CDT Influenza 08/30/2017 08/30/2019 08/30/2019 1:09 PM BANQUET PREP COOK Influenza - Rule Out 08/30/2019 08/31/2019 09/17/2019 8:17 AM BANQUET PREP COOK RSV 08/31/2019 documented as of this encounter
--- OUTSIDE RECORDS SUMMARY | 2020-03-16 14:08 | XMS REPORT | Encounter Summary ---
Author Author [facility] Organization [facility] Address Unknown Phone Unavailable Care Team Providers Care Applications Chemist Name Role Phone Ebony Sharp MD PCP Reason for Visit * Reason Comments Follow-up Margot lt 12-03-16 HKW TVX: Appt. Reminder (12/22/2016 06:44 PM) Phone Call - Responded "Yes" (Y=Answered - Ye s) Encounter Details Care Team Description Date Type Department Adelaida Olivas MD [address] [facility] [address] [place] [address] [phone] 12/24/2016 Hist-Appointmen [facility] [address] [facility] [address] [place] [address] Social History Date Tobacco Use Types Packs/Day [...]
--- OUTSIDE RECORDS SUMMARY | 2020-03-16 14:08 | XMS REPORT | Encounter Summary ---
Author Author [facility] Organization [facility] Address Unknown Phone Unavailable Care Team Providers Care Magnet Placer Name Role Phone Ebony Sharp MD PCP Encounter Details Care Team Description Date Type Department Adelaida Olivas MD [address] [facility] [address] [place] [address] 11/25/2016 Hist[facility]Telephone [facility] [address] [facility] [address] [place], [place] [address] Social History Date Tobacco Use Types Packs/Day [...] Follow-up Details: Received prior authorization request from [facility] pharmacy for Skelaxin 800mg. Started on [employer] Plan Phone # - [phone] [facility] - [phone] Submitted to plan. Follow-up by: Alec Jimenez [...] CDT Influenza 08/30/2017 08/30/2019 08/30/2019 1:09 PM PERINATAL SOCIAL WORKER Influenza - Rule Out 08/30/2019 08/31/2019 09/17/2019 8:17 AM PERINATAL SOCIAL WORKER RSV 08/31/2019 documented as of this encounter
--- OUTSIDE RECORDS SUMMARY | 2020-03-16 14:08 | XMS REPORT | Encounter Summary ---
Author Author [facility] Organization [facility] Address Unknown Phone Unavailable Care Team Providers Care Sea Kayaking Guide Name Role Phone Ebony Sharp MD PCP Encounter Details Care Team Description Date Type Department Adelaida Olivas MD [address] [facility] [address] [place] [address] [phone] 11/24/2016 Hist-Other [facility] [address] [place] [address] Social History Date Tobacco Use Types Packs/Day [...]
--- OUTSIDE RECORDS SUMMARY | 2020-03-16 14:08 | XMS REPORT | Encounter Summary ---
Author Author [facility] Organization [facility] Address Unknown Phone Unavailable Care Team Providers Care Hand Carver Name Role Phone Ebony Sharp MD PCP Reason for Visit * Reason Comments Follow-up Margot rt knee(ok'd per bk)/ 11/20/16 ndTVX: Appt. Reminder (12/02/2016 06:32 PM) Phone Call - Message Delivered (X=A nswering Machine) Encounter Details Care Team Description Date Type Department Wyatt Santacruz MD [address] [facility] [address] [place] [address] [phone] 12/04/2016 Hist-Appointmen [facility] [address] [facility] [address] [place] [address] Social History Date Tobacco Use Types Packs/Day [...]
--- OUTSIDE RECORDS SUMMARY | 2020-03-16 14:08 | XMS REPORT | Encounter Summary ---
Author Author [facility] Organization [facility] Address Unknown Phone Unavailable Care Team Providers Care Casting Plug Assembler Name Role Phone Ebony Sharp MD PCP Encounter Details Care Team Description Date Type Department Wyatt Santacruz MD [address] [facility] [address] [place] [address] [phone] 11/02/2016 Hist-Other [facility] [address] [place] [address] Social History Date Tobacco Use Types Packs/Day [...]
--- OUTSIDE RECORDS SUMMARY | 2020-03-16 14:08 | XMS REPORT | Encounter Summary ---
Author Author [facility] Organization [facility] Address Unknown Phone Unavailable Care Team Providers Care Operations Engineer Name Role Phone Ebony Sharp MD PCP Reason for Visit * Reason Comments Follow-up eldon lft ankle 11/19/16kswTV X: Appt. Reminder (11/20/2016 06:56 PM) Phone Call - Message Delivered (X=Answering [place]) Encounter Details Care Team Description Date Type Department Adelaida Olivas MD [address] [facility] [address] [place] [address] [phone] 11/24/2016 Hist-Appointmen [facility] [address] [facility] [address] [place] [address] Social History Date Tobacco Use Types Packs/Day [...]
--- OUTSIDE RECORDS SUMMARY | 2020-03-16 14:08 | XMS REPORT | Encounter Summary ---
Author Author [facility] Organization [facility] Address Unknown Phone Unavailable Care Team Providers Care Division Traffic Superintendent Name Role Phone Ebony Sharp MD PCP Encounter Details Care Team Description Date Type Mendy Mckenzie PA-C [address] [address] [phone] 11/02/2016 Hist-Other [facility] [address] [place] [address] Social History Date Tobacco Use Types Packs/Day [...]
--- OUTSIDE RECORDS SUMMARY | 2020-03-16 14:08 | XMS REPORT | Encounter Summary ---
Author Author Organization Address Unknown Phone Unavailable Care Team Providers Care Transfer Table Operator Helper Name Role Phone Ebony Sharp MD PCP Encounter Details Care Team Description Date Type Department Tonya Hernandez APRN No Forwarding Address UTI symptoms 11/23/2016 Lab [facility] Primar y Care - [facility] [place] [address] [facility] [address] [place], [place] [address] Social History Date Tobacco Use Types Packs/Day [...] PM CDT) Isolate 1 >100,000 Cfu/ml (A) [facility] Isolate 1 Escherichia coli (A) [facility] Specimen Urine Antibiotic Method Susceptibility Organism AMPICILLIN >=32: Resistant Escherichia coli CEFAZOLIN. <=4: Sensitive Escherichia coli CEFTRIAXONE <=1: Sensitive Escherichia coli CEFEPIME <=1: Sensitive Escherichia coli MEROPENEM <=0.25: Sensitive Escherichia coli GENTAMICIN <=1: Sensitive Escherichia coli CIPROFLOXACIN. <=0.25: Sensitive Escherichia coli NITROFURANTOIN <=16: Sensitive Escherichia coli SEPTRA/BACTRIM <=20: Sensitive Escherichia coli Performing Organization Address City/State/Zipcode Ph one Number [address] [phone] LABORATORIES documented in this encounter Visit Diagnoses Diagnosis UTI symptoms documented in this encounter
--- OUTSIDE RECORDS SUMMARY | 2020-03-16 14:08 | XMS REPORT | Encounter Summary ---
Author Author [facility] Organization [facility] Address Unknown Phone Unavailable Care Team Providers Care Respiratory Manager Name Role Phone Ebony Sharp MD PCP Encounter Details Care Team Description Date Type Department Wyatt Santacruz MD [address] [facility] [address] [place], [place] [address] 11/02/2016 Hist-Transcript [facility] ion Encounter Specialists [address] [facility] [address] [place], [place] [address] Social History Date Tobacco Use Types Packs/Day [...] of her pain. She has had no harhsil e mechanical catching or locking. No true [...] CDT Influenza 08/30/2017 08/30/2019 08/30/2019 1:09 PM LINKING MACHINE OPERATOR Influenza - Rule Out 08/30/2019 08/31/2019 09/17/2019 8:17 AM LINKING MACHINE OPERATOR RSV 08/31/2019 documented as of this encounter
--- OUTSIDE RECORDS SUMMARY | 2020-03-16 14:08 | XMS REPORT | Encounter Summary ---
Author Author [facility] Organization [facility] Address Unknown Phone Unavailable Care Team Providers Care Process Manager Name Role Phone Ebony Sharp MD PCP Reason for Referral * MRI/CAT/PET Scan (Routine) Referred By Contact Referred To Contact Status Reason Specialty Diagnoses / Procedures Adelaida Olivas MD [address] [facility] [address] [place] [phone] [address] [place] [address] Closed Radiology Diagnoses Osteoarthritis of left ankle P rocedures CT Ankle wo contrast left Encounter Details Care Team Description Date Type Department Adelaida Olivas MD [address] [facility] [address] [place] [address] [phone] Osteoarthritis of left ankle (Primary Dx ) 11/25/2016 Transcribe [facility] [address] [place] [id number] Social History Date Tobacco Use Types Packs/Day [...] predominant soft tissu e swelling. READING SITE: [facility] Narrative Performed At Patient: ISIAH BENÍTEZ Sex#: F # [id number] Jose#: [id number] [facility] Procedure Requested: [id number] CT ANKLE WO CONTRAST LEFT Reason for [...] the central joint space, both anteriorly and commercial stripper iorly. However, there is also persistent joint [...] ISIAH BENÍTEZ Sex#: Paulina # [id number] Jose#: [id number] [facility]: [facility] Procedure Requested: [id number] CT ANKLE WO CONTRAST LEFT Reason for [...] Anterolateral predominant soft tissue swelling. READING SITE: [facility] Address City/State/Zipcode Ph one Number [place] documented in this encounter Visit Diagnoses Diagnosis Osteoarthritis of left ankle documented in this encounter Additional Health Concerns Last Indicated Resolved Time Infection Onset Date 08/30/2017 04/19/2018 12:13 PM CDT Influenza 08/30/2017 08/30/2019 08/30/2019 1:09 PM LANDSCAPE HORTICULTURE INSTRUCTOR Influenza - Rule Out 08/30/2019 08/31/2019 09/17/2019 8:17 AM LANDSCAPE HORTICULTURE INSTRUCTOR RSV 08/31/2019 documented as of this encounter
--- OUTSIDE RECORDS SUMMARY | 2020-03-16 14:08 | XMS REPORT | Encounter Summary ---
Author Author [facility] Organization [facility] Address Unknown Phone Unavailable Care Team Providers Care Gravity Meter Observer Name Role Phone Ebony Sharp MD PCP Reason for Visit * Reason Comments Urinary Tract Infection dysuria, frequency, urine o janie, started a few weeks ago Encounter Details Care Team Description Date Type Department Tonya Hernandez APRN No Forwarding Address UTI symptoms (Primary Dx); Urinary tract infection, site not specified 11/23/2016 Office Visit [facility] [address] [facility] [address] [place], [place] [address] Social History Date Tobacco Use Types Packs/Day [...] Ketones Urine 11/23/2016 Negative Negative Final Specific [place], UA 11/23/2016 1.025 1.001 - 1.030 Final [...] PM CDT) Isolate 1 >100,000 Cfu/ml (A) [facility] Isolate 1 Escherichia coli (A) [facility] Specimen Urine Antibiotic Method Susceptibility Organism AMPICILLIN >=32: Resistant Escherichia coli CEFAZOLIN. <=4: Sensitive Escherichia coli CEFTRIAXONE <=1: Sensitive Escherichia coli CEFEPIME <=1: Sensitive Escherichia coli MEROPENEM <=0.25: Sensitive Escherichia coli GENTAMICIN <=1: Sensitive Escherichia coli CIPROFLOXACIN. <=0.25: Sensitive Escherichia coli NITROFURANTOIN <=16: Sensitive Escherichia coli SEPTRA/BACTRIM <=20: Sensitive Escherichia coli Performing Organization Address City/State/Zipcode Ph one Number [address] [address] LABORATORIES * POCT urinalysis dipstick (11/23/2016 9:58 AM CDT) Appearance, yellow, cloudy Colorless/Yellow/Da r Urine k Yellow Glucose Urine Negative Negative mg/dL Bilirubin Urine Negative Negative Ketones Urine Negative Negative Specific 1.025 1.001 - 1.030 [place], UA Hemoglobin Moderate (A) Negative Urine PH Urine 5.5 5.0 - 8.0 Protein Urine 100 (A) Negative Qual Urobilinogen Negative Negative EU/dL Urine Nitrite Urine Positive (A) Negative Leukocyte Large (A) Negative Esterase Specimen Urine documented in this encounter Visit Diagnoses Diagnosis UTI symptoms Urinary tract infection, site not speci fied documented in this encounter
--- OUTSIDE RECORDS SUMMARY | 2020-03-16 14:08 | XMS REPORT | Encounter Summary ---
Author Author [facility] Organization [facility] Address Unknown Phone Unavailable Care Team Providers Care Action Finisher Name Role Phone Ebony Sharp MD PCP Encounter Details Care Team Description Date Type Department Adelaida Olivas MD [address] [facility] [address] [place] [address] [phone] 12/03/2016 Hist-Other [facility] [address] [place] [address] Social History Date Tobacco Use Types Packs/Day [...]
--- OUTSIDE RECORDS SUMMARY | 2020-03-16 14:09 | XMS REPORT | Encounter Summary ---
Author Author [facility] Organization [facility] Address Unknown Phone Unavailable Care Team Providers Care Loader Operator Name Role Phone Ebony Sharp MD PCP Encounter Details Care Team Description Date Type Department Adelaida Olivas MD [address] [facility] [address] [place] [address] [phone] 09/02/2016 Hist-Other [facility] [address] [place] [address] Social History Date Tobacco Use Types Packs/Day [...] nosis XR ANKLE Routine 09/02/2016 11:31 AM BOX MAKER PAPERBOARD documented in this encounter Results * XR Ankle (09/02/2016 11:31 AM BOX MAKER PAPERBOARD) Specimen Performing Organization Address City/State/Zipcode Ph one Number [place] documented in this encounter Visit Diagnoses Not on filedocumented in this encounter Additional Health Concerns Last Indicated Resolved Time Infection Onset Date 08/30/2017 04/19/2018 12:13 PM CDT Influenza 08/30/2017 documented as of this encounter
--- OUTSIDE RECORDS SUMMARY | 2020-03-16 14:09 | XMS REPORT | Encounter Summary ---
Author Author [facility] Organization [facility] Address Unknown Phone Unavailable Care Team Providers Care Cloth Neutralizer Name Role Phone Ebony Sharp MD PCP Encounter Details Care Team Description Date Type Department Adelaida Olivas MD [address] [facility] [address] [place], [place] [id number] 09/02/2016 Hist-Transcript [facility] Orthopa[facility] ion Encounter Specialists [address] [facility] [address] [place], [place] [id number] Social History Date Tobacco Use Types Packs/Day [...] Adelaida Olivas MD - 09/02/2016 11:25 AM WEAVE ROOM SUPERVISOR - History of Present Illness Presents today [...] in the alternate nostril. VITAMIN D (ERGOCALCIFEROL) 42389 UNIT CAPS (ERGOCALCIFEROL) 1 po q weekly [...] used: Print then Give to Patient RxID: [id number] OXYCONTIN 10 MG T12A (OXYCODONE HCL) 1 tab bid #60 x 0 Entered by: Sharona Scott Authorized by: Adelaida Olivas MD Signed by: Sharona Scott on 09/02/2016 Method used: Print then Give to Patient RxID: [id number] CYCLOBENZAPRINE HCL 5 MG TABS (CYCLOBENZAPRINE HCL) One, PO, at bedtime as neede d for muscle spasm #60 x 0 Entered by: Sharona Scott Authorized by: Adelaida Olivas MD Signed by: Sharona Scott on 09/02/2016 Method used: Print then Give to Patient RxID: [id number] Review of Systems General: Complains of sweats. [...] (x-rays not available in the office today): E ROOM SUPERVISOR documented in this encounter Plan of Treatment Not on filedocumented as of this encounter Visit Diagnoses Not on filedocumented in this encounter Additional Health Concerns Last Indicated Resolved Time Infection Onset Date 08/30/2017 04/19/2018 12:13 PM CDT Influenza 08/30/2017 08/30/2019 08/30/2019 1:09 PM WEAVE ROOM SUPERVISOR Influenza - Rule Out 08/30/2019 08/31/2019 09/17/2019 8:17 AM WEAVE ROOM SUPERVISOR RSV 08/31/2019 documented as of this encounter
--- OUTSIDE RECORDS SUMMARY | 2020-03-16 14:09 | XMS REPORT | Encounter Summary ---
Author Author [facility] Organization [facility] Address Unknown Phone Unavailable Care Team Providers Care Manager Pharmacy Name Role Phone Ebony Sharp MD PCP Encounter Details Care Team Description Date Type Department Adelaida Olivas MD [address] [facility] [address] [place] [address] 08/19/2016 Hist-Telephone [facility] [address] [facility] [address] [place], [place] [id number] Social History Date Tobacco Use Types Packs/Day [...] Adelaida Olivas MD - 08/19/2016 9:49 AM VETERANS CONTACT REPRESENTATIVE Follow-up for Phone Call Follow-up Details: Prior Authorization submitted through [employer] for [facility] lobenzaprine 5mg. [facility] pharmacy [phone]. . Follow-up by: Edgar Muller on August 19, 2016 9:51 AM Additional Follow-up for Phone Call Additional Follow-up Details: I checked the prior authorization form on [employer] and it states "NO PA REQUIRED" and this is only needed for patient's 65 years of age or older. Message relayed to pharmacist and she states that this went through insurance an d was picked up by the patient on 08/24/16. Additional Follow-up by: Karin Saenz on September 07, 2016 1:01 PM RANS CONTACT REPRESENTATIVE documented in this encounter Plan of Treatment Not on filedocumented as of this encounter Visit Diagnoses Not on filedocumented in this encounter Additional Health Concerns Last Indicated Resolved Time Infection Onset Date 08/30/2017 04/19/2018 12:13 PM CDT Influenza 08/30/2017 08/30/2019 08/30/2019 1:09 PM VETERANS CONTACT REPRESENTATIVE Influenza - Rule Out 08/30/2019 08/31/2019 09/17/2019 8:17 AM VETERANS CONTACT REPRESENTATIVE RSV 08/31/2019 documented as of this encounter
--- OUTSIDE RECORDS SUMMARY | 2020-03-16 14:09 | XMS REPORT | Encounter Summary ---
Author Author [facility] Organization [facility] Address Unknown Phone Unavailable Care Team Providers Care Drill Sergeant Name Role Phone Ebony Sharp MD PCP Reason for Visit * Reason Comments Follow-up NCrt knee prothesis chip, r t leg and swelling and pain/DOI: 10/08/2016/ seen at [facility]/ Films@ [facility] /Insurance M edicare / ok per Selene/ 10/09/2016 cml Encounter Details Care Team Description Date Type Department Wyatt Santacruz MD [address] [facility] [address] [place] [address] [phone] 10/12/2016 Hist-Appointmen Aide Orthopaedi c t Specialists [address] [facility] [address] [place] [address] Social History Date Tobacco Use Types Packs/Day [...]
--- OUTSIDE RECORDS SUMMARY | 2020-03-16 14:09 | XMS REPORT | Encounter Summary ---
Author Author [facility] Organization [facility] Address Unknown Phone Unavailable Care Team Providers Care Branch Sales And Service Representative Name Role Phone Ebony Sharp MD PCP Encounter Details Care Team Description Date Type Department Adelaida Olivas MD [address] [facility] [address] [place] [address] [phone] 09/16/2016 Hist-Other [facility] [address] [place] [address] Social History Date Tobacco Use Types Packs/Day [...] XR ANKLE LEFT Routine 09/16/2016 11:56 AM STRUCTURAL IRON WORKER documented in this encounter Results * XR Ankle left (09/16/2016 11:56 AM STRUCTURAL IRON WORKER) Specimen Performing Organization Address City/State/Zipcode Ph one Number [place] documented in this encounter Visit Diagnoses Not on filedocumented in this encounter Additional Health Concerns Last Indicated Resolved Time Infection Onset Date 08/30/2017 04/19/2018 12:13 PM CDT Influenza 08/30/2017 documented as of this encounter
--- OUTSIDE RECORDS SUMMARY | 2020-03-16 14:09 | XMS REPORT | Encounter Summary ---
Author Author [facility] Organization [facility] Address Unknown Phone Unavailable Care Team Providers Care Dynamite Reclaimer Name Role Phone Ebony Sharp MD PCP Encounter Details Care Team Description Date Type Department Adelaida Olivas MD [address] [facility] [address] [place] [address] [phone] 08/18/2016 Hist-Other [facility] [address] [place] [address] Social History Date Tobacco Use Types Packs/Day [...] nosis XR ANKLE Routine 08/18/2016 1:24 PM WELDER GUN documented in this encounter Results * XR Ankle (08/18/2016 1:24 PM WELDER GUN) Specimen Performing Organization Address City/State/Zipcode Ph one Number [place] documented in this encounter Visit Diagnoses Not on filedocumented in this encounter Additional Health Concerns Last Indicated Resolved Time Infection Onset Date 08/30/2017 04/19/2018 12:13 PM CDT Influenza 08/30/2017 documented as of this encounter
--- OUTSIDE RECORDS SUMMARY | 2020-03-16 14:09 | XMS REPORT | Encounter Summary ---
Author Author [facility] Organization [facility] Address Unknown Phone Unavailable Care Team Providers Care Forging Die Sinker Name Role Phone Ebony Sharp MD PCP Reason for Visit * Reason Comments Follow-up eldon left ankle // sm 09/02TVX: Appt. Reminder (09/14/2016 06:56 PM) Phone Call - Responded "Yes" (Y=Answere d - Yes) Encounter Details Care Team Description Date Type Department Adelaida Olivas MD [address] [facility] [address] [place] [address] [phone] 09/16/2016 Hist-Appointmen Aide [facility] t Specialists [address] [facility] [address] [place] [address] Social History Date Tobacco Use Types Packs/Day [...]
--- OUTSIDE RECORDS SUMMARY | 2020-03-16 14:09 | XMS REPORT | Encounter Summary ---
Author Author [facility] Organization [facility] Address Unknown Phone Unavailable Care Team Providers Care Button Attaching Machine Operator Name Role Phone Ebony Sharp MD PCP Reason for Visit * Reason Comments Other Encounter Details Care Team Description Date Type Department Ebony Sharp MD [address] [facility] [address] [place] [address] Other 09/09/2016 Refill [facility] [address] [facility] [address] [place], [place] [address] Social History Date Tobacco Use Types Packs/Day [...]
--- OUTSIDE RECORDS SUMMARY | 2020-03-16 14:09 | XMS REPORT | Encounter Summary ---
Author Author [facility] Organization [facility] Address Unknown Phone Unavailable Care Team Providers Care Supervisor Road Administrator Name Role Phone Ebony Sharp MD PCP Encounter Details Care Team Description Date Type Department Adelaida Olivas MD [address] [facility] [address] [place], [place] [address] 09/02/2016 Hist-Transcript [facility] Encounter Specialists [address] [facility] [address] [place], [place] [address] Social History Date Tobacco Use Types Packs/Day [...] Adelaida Olivas MD - 09/04/2016 11:32 AM METHODS SPECIALIST ENGINEER Cast Note A well padded short leg non-weight bearing fiberglass cast was applied. They were informed of precautions, to keep this clean and dry. They are to call the office if there is any incident or issues that arise. ODS SPECIALIST ENGINEER documented in this encounter Plan of Treatment Not on filedocumented as of this encounter Visit Diagnoses Not on filedocumented in this encounter Additional Health Concerns Last Indicated Resolved Time Infection Onset Date 08/30/2017 04/19/2018 12:13 PM CDT Influenza 08/30/2017 08/30/2019 08/30/2019 1:09 PM METHODS SPECIALIST ENGINEER Influenza - Rule Out 08/30/2019 08/31/2019 09/17/2019 8:17 AM METHODS SPECIALIST ENGINEER RSV 08/31/2019 documented as of this encounter
--- OUTSIDE RECORDS SUMMARY | 2020-03-16 14:09 | XMS REPORT | Encounter Summary ---
Author Author [facility] Organization [facility] Address Unknown Phone Unavailable Care Team Providers Care Employment Educational Coord Name Role Phone Ebony Sharp MD PCP Encounter Details Care Team Description Date Type Department Adelaida Olivas MD [address] [facility] [address] [place], [place] [address] 09/16/2016 Hist-Transcript Aide Orthopaedi c ion Encounter Specialists [address] [facility] [address] [place], [place] [address] Social History Date Tobacco Use Types Packs/Day [...] * Juarez Noble - 09/16/2016 12:05 PM MEDICINE TECHNOLOGIST - History of Present Illness Presents today [...] in the alternate nostril. VITAMIN D (ERGOCALCIFEROL) 79102 UNIT CAPS (ERGOCALCIFEROL) 1 po q weekly [...] CDT Influenza 08/30/2017 08/30/2019 08/30/2019 1:09 PM MEDICINE TECHNOLOGIST Influenza - Rule Out 08/30/2019 08/31/2019 09/17/2019 8:17 AM MEDICINE TECHNOLOGIST RSV 08/31/2019 documented as of this encounter
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
--- OUTSIDE RECORDS SUMMARY | 2020-03-16 14:09 | XMS REPORT | Encounter Summary ---
Author Author [facility] Organization [facility] Address Unknown Phone Unavailable Care Team Providers Care Boiler Washer Name Role Phone Ebony Sharp MD PCP Reason for Visit * Reason Comments Follow-up recheck right knee hj 11-02 Encounter Details Care Team Description Date Type Department Wyatt Santacruz MD [address] [facility] [address] [place], [place] [id number] 11/02/2016 Hist-Appointmen [facility] [address] [facility] [address] [place], [place] [id number] Social History Date Tobacco Use Types Packs/Day [...]
--- OUTSIDE RECORDS SUMMARY | 2020-03-16 14:09 | XMS REPORT | Encounter Summary ---
Author Author [facility] Organization [facility] Address Unknown Phone Unavailable Care Team Providers Care Pipe Fitter Supervisor Name Role Phone Ebony Sharp MD PCP Encounter Details Care Team Description Date Type Department Adelaida Olivas MD [address] [facility] [address] [place] [address] [phone] 10/08/2016 Hist-Other [facility] Hospit al [address] [place] [address] Social History Date Tobacco Use Types Packs/Day [...] XR ANKLE LEFT Routine 10/08/2016 12:34 PM VAT PACKER documented in this encounter Results * XR Ankle left (10/08/2016 12:34 PM VAT PACKER) Specimen Performing Organization Address City/State/Zipcode Ph one Number [place] documented in this encounter Visit Diagnoses Not on filedocumented in this encounter Additional Health Concerns Last Indicated Resolved Time Infection Onset Date 08/30/2017 04/19/2018 12:13 PM CDT Influenza 08/30/2017 documented as of this encounter
--- OUTSIDE RECORDS SUMMARY | 2020-03-16 14:09 | XMS REPORT | Encounter Summary ---
Author Author [facility] Organization [facility] Address Unknown Phone Unavailable Care Team Providers Care Food Service Team Member Name Role Phone Ebony Sharp MD PCP Encounter Details Care Team Description Date Type Department Adelaida Olivas MD [address] [facility] [address] [place] [address] 10/08/2016 [facility] [address] [facility] [address] [place], [place] [phone] Social History Date Tobacco Use Types Packs/Day [...] Adelaida Olivas MD - 10/08/2016 2:01 PM OIL FURNACE INSTALLER Phone Note Other Incoming Call Summary of call: Received a call from Eric with [facility]'s pharmacy. He is [place] a[place] for clarification [...] the patient. Please call Eric back at [phone]. Call taken by: Malcolm Sam on October 08, 2016 2:03 PM Follow-up for Phone Call Follow-up Details: Per Brendon arambula, ms contin is to replace the oxycontin. Spoke to eric and relayed the message. Follow-up by: Geraldine Neves on October 08, 2016 4:46 PM FURNACE INSTALLER documented in this encounter Plan of Treatment Not on filedocumented as of this encounter Visit Diagnoses Not on filedocumented in this encounter Additional Health Concerns Last Indicated Resolved Time Infection Onset Date 08/30/2017 04/19/2018 12:13 PM CDT Influenza 08/30/2017 08/30/2019 08/30/2019 1:09 PM OIL FURNACE INSTALLER Influenza - Rule Out 08/30/2019 08/31/2019 09/17/2019 8:17 AM OIL FURNACE INSTALLER RSV 08/31/2019 documented as of this encounter
--- OUTSIDE RECORDS SUMMARY | 2020-03-16 14:09 | XMS REPORT | Encounter Summary ---
Author Author [facility] Organization [facility] Address Unknown Phone Unavailable Care Team Providers Care Combination Building Inspector Name Role Phone Ebony Sharp MD PCP Encounter Details Care Team Description Date Type Department Ebony Sharp MD [address] [facility] [address] [place] [address] 09/09/2016 [facility]ation [facility] [address] [facility] [address] [place] [address] Social History Date Tobacco Use [...]
--- OUTSIDE RECORDS SUMMARY | 2020-03-16 14:09 | XMS REPORT | Encounter Summary ---
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 Care Educational Consultant Name Role Phone Ebony Sharp MD PCP Reason for Visit * Reason Comments Follow-up Margot lt ankle/ 10/02/16 ndT VX: Appt. Reminder (10/06/2016 06:59 PM) Phone Call - Message Delivered (X=Answering Ever hill) Encounter Details Care Team Description Date Type Department Adelaida Olivas MD [address] [facility] [address] [place] [address] [phone] 10/08/2016 Hist-Appointmen Aide Orthopaedi hanny moore Specialists [address] [facility] [address] [place] [address] Social History Date Tobacco Use Types Packs/Day [...]
--- OUTSIDE RECORDS SUMMARY | 2020-03-16 14:09 | XMS REPORT | Encounter Summary ---
Author Author [facility] Organization [facility] Address Unknown Phone Unavailable Care Team Providers Care Quality Assurance Project Manager Name Role Phone Ebony Sharp MD PCP Encounter Details Care Team Description Date Type Department Adelaida Olivas MD [address] [facility] [address] [place], [place] [id number] 10/08/2016 Hist-Transcript Aide Orthopaedi c ion Encounter Specialists [address] [facility] [address] [place], [place] [id number] Social History Date Tobacco Use Types Packs/Day [...] * Juarez Noble - 10/08/2016 12:30 PM CONSUMER RECRUITER - History of Present Illness Presents today [...] future. We will place her on MS Ia ntin. She will continue her guarded weightbearing [...] in the alternate nostril. VITAMIN D (ERGOCALCIFEROL) 67666 UNIT CAPS (ERGOCALCIFEROL) 1 po q weekly [...] used: Print then Give to Patient RxID: [id number] Vital Signs BMI: 43.32 She was encourage [...] CDT Influenza 08/30/2017 08/30/2019 08/30/2019 1:09 PM CONSUMER RECRUITER Influenza - Rule Out 08/30/2019 08/31/2019 09/17/2019 8:17 AM CONSUMER RECRUITER RSV 08/31/2019 documented as of this encounter
--- OUTSIDE RECORDS SUMMARY | 2020-03-16 14:09 | XMS REPORT | Encounter Summary ---
Author Author [facility] Organization [facility] Address Unknown Phone Unavailable Care Team Providers Care Nnp Name Role Phone Ebony Sharp MD PCP Reason for Visit * Reason Comments Other Encounter Details Care Team Description Date Type Department Ebony Sharp MD [address] [facility] [address] [place] [address] Other 10/14/2016 Refill [facility] [address] [facility] [address] [place], [place] [address] Social History Date Tobacco Use Types Packs/Day [...]
--- OUTSIDE RECORDS SUMMARY | 2020-03-16 14:09 | XMS REPORT | Encounter Summary ---
Author Author [facility] Organization [facility] Address Unknown Phone Unavailable Care Team Providers Care Deck Scaler Name Role Phone Ebony Sharp MD PCP Encounter Details Care Team Description Date Type Department ProviderJuarez MD [address] [place] [address] 08/19/2016 Orders Only [facility] [address] [facility] [address] [place] [address] Social History Date Tobacco Use Types Packs/Day [...]
--- OUTSIDE RECORDS SUMMARY | 2020-03-16 14:09 | XMS REPORT | Encounter Summary ---
Author Author [facility] Organization [facility] Address Unknown Phone Unavailable Care Team Providers Care Manager Orange Name Role Phone Ebony Sharp MD PCP Encounter Details Care Team Description Date Type Department Ebony Sharp MD [address] [facility] [address] [place], [place] [id number] 10/30/2016 Documentation [facility] y [facility] [address] [facility] [address] [place] [address] Social History Date Tobacco Use [...]
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
--- OUTSIDE RECORDS SUMMARY | 2020-03-16 14:09 | XMS REPORT | Encounter Summary ---
Author Author [facility] Organization [facility] Address Unknown Phone Unavailable Care Team Providers Care Fur Scraper Name Role Phone Ebony Sharp MD PCP Encounter Details Care Team Description Date Type Department Adelaida Olivas MD [address] [facility] [address] [place] [address] 10/09/2016 Hist-Telephone [place] [facility] [address] [facility] [address] [place], [place] [phone] Social History Date Tobacco Use Types Packs/Day [...] Adelaida Olivas MD - 10/09/2016 10:08 AM ROLL OVER PRESS OPERATOR Phone Note Call from Patient Summary of [...] Rhodes on October 09, 2016 2:07 PM OVER PRESS OPERATOR documented in this encounter Plan of Treatment Not on filedocumented as of this encounter Visit Diagnoses Not on filedocumented in this encounter Additional Health Concerns Last Indicated Resolved Time Infection Onset Date 08/30/2017 04/19/2018 12:13 PM CDT Influenza 08/30/2017 08/30/2019 08/30/2019 1:09 PM ROLL OVER PRESS OPERATOR Influenza - Rule Out 08/30/2019 08/31/2019 09/17/2019 8:17 AM ROLL OVER PRESS OPERATOR RSV 08/31/2019 documented as of this encounter
--- OUTSIDE RECORDS SUMMARY | 2020-03-16 14:09 | XMS REPORT | Encounter Summary ---
Author Author [facility] Organization [facility] Address Unknown Phone Unavailable Care Team Providers Care Senior Stack Engineer Name Role Phone Ebony Sharp MD PCP Reason for Visit * Reason Comments Follow-up eldon lft ankle [id number] [facility] TVX: Appt. Reminder (08/31/2016 07:22 PM) Phone Call - Message Delivered (X=Answering Ever hill) Encounter Details Care Team Description Date Type Department Adelaida Olivas MD [address] [facility] [address] [place] [address] [phone] 09/02/2016 Hist-Appointmen Aide Orthopaedi c teresa Specialists [address] [facility] [address] [place] [address] Social History Date Tobacco Use Types Packs/Day [...]
--- OUTSIDE RECORDS SUMMARY | 2020-03-16 14:09 | XMS REPORT | Encounter Summary ---
Author Author [facility] Organization [facility] Address Unknown Phone Unavailable Care Team Providers Care Contracts Officer Name Role Phone Ebony Sharp MD PCP Encounter Details Care Team Description Date Type Department Ebony Sharp MD [address] [facility] [address] [place], [place] [phone] 10/13/2016 Documentation [facility] [address] [facility] [address] [place] [address] Social History Date Tobacco Use [...]
--- OUTSIDE RECORDS SUMMARY | 2020-03-16 14:09 | XMS REPORT | Encounter Summary ---
Author Author [facility] Organization [facility] Address Unknown Phone Unavailable Care Team Providers Care Edger Operator Name Role Phone Ebony Sharp MD PCP Reason for Visit * Reason Comments Follow-up Margot/ lft ankle / ok per Al leila/ 10/29/2016 cmlTVX: Appt. Reminder (10/29/2016 06:19 PM) Phone Call - Mess age Delivered (X=Answering Machine) Encounter Details Care Team Description Date Type Department Mendy Carpenter PA-C [address] [place] [address] [phone] 11/02/2016 Hist-Appointfloresita Steeleedi hanny t Specialists [address] [facility] [address] [place] [address] Social History Date Tobacco Use Types Packs/Day [...]
--- OUTSIDE RECORDS SUMMARY | 2020-03-16 14:10 | XMS REPORT | Encounter Summary ---
Author Author [facility] Organization [facility] Address Unknown Phone Unavailable Care Team Providers Care Activity Therapist Name Role Phone Ebony Sharp MD PCP Reason for Visit * Reason Comments Follow-up eldon Post op per Mendy Encounter Details Care Team Description Date Type Department Mendy Carpenter PA-C [address] [address] [phone] 08/11/2016 Hist-Appointmen Aide Orthopaedi c t Specialists [address] [facility] [address] [place], [place] [address] Social History Date Tobacco Use Types Packs/Day [...]
--- OUTSIDE RECORDS SUMMARY | 2020-03-16 14:10 | XMS REPORT | Encounter Summary ---
Author Author [facility] Organization [facility] Address Unknown Phone Unavailable Care Team Providers Care Research Development Director Name Role Phone Ebony Sharp MD PCP Encounter Details Care Team Description Date Type Department dAelaida Olivas MD [address] [facility] [address] [place], [place] [phone] Other specified pre-operative examinatio n 07/23/2016 Lab [facility] [phone] Social History Date Tobacco Use Types Packs/Day [...] APTT Routine 07/23/2016 Other specified 4:29 PM CORRECTIVE THERAPY AIDE pre-operative examination PROTHROMBIN TIME/INR Routine 07/23/2016 Other spe cified 4:29 PM CORRECTIVE THERAPY AIDE pre-operative examination COMPLETE BLOOD COUNT Routine 07/23/2016 Other spe cified 4:29 PM CORRECTIVE THERAPY AIDE pre-operative examination BASIC METABOLIC PANEL Routine 07/23/2016 Other sp ecified 4:29 PM CORRECTIVE THERAPY AIDE pre-operative examination documented in this encounter Results * Prothrombin Time/INR (07/23/2016 4:29 PM CORRECTIVE THERAPY AIDE) Protime 12.8 11.4 - 15.0 sec [facility] INR 1.0 0.8 - 1.2 [facility] Specimen Blood Performing Organization Address City/State/[facility] Ph one Number [facility] [address] [place] [address] [facility] [address] [place] [address], [place] [phone] [facility] * APTT (07/23/2016 4:29 PM CORRECTIVE THERAPY AIDE) APTT 25 22 - 34 sec [facility] Specimen Blood Performing Organization Address [facility] one Number [facility] [address] [place] [address] [facility] [address] [place] [address], [place] [phone] [facility] * Complete Blood Count (07/23/2016 4:29 PM CORRECTIVE THERAPY AIDE) WBC 8.75 4.00 - 11.00 TH/uL [facility] [...] [facility] Specimen Blood Performing Organization Address City/State/[facility] Ph one Number [facility] [address] [place], [place] [phone] [facility] [address] [facility] [place] [facility] [place] [address], [facility] * Basic Metabolic Panel (07/23/2016 4:29 PM CORRECTIVE THERAPY AIDE) Sodium 145 133 - 147 MEQ/L [facility] [...] mL/min/1.73 sq.m Specimen Blood Performing Organization Address City/State/[facility] Ph one Number [facility] [address] [facility] [place] [address] [facility] [address] [facility] [place] [address], [facility] documented in this encounter Visit Diagnoses Diagnosis Other specified pre-operative examinati on documented in this encounter
--- OUTSIDE RECORDS SUMMARY | 2020-03-16 14:10 | XMS REPORT | Encounter Summary ---
Author Author [facility] Organization [facility] Address Unknown Phone Unavailable Care Team Providers Care Engineering Model Maker Name Role Phone Ebony Sharp MD PCP Encounter Details Care Team Description Date Type Department Adelaida Olivas MD [address] [facility] [address] [place], [place] [address] 08/07/2016 Hist-Transcript [place] [facility] ion Encounter Specialists [address] [facility] [address] [place], [place] [address] Social History Date Tobacco Use Types Packs/Day [...] encounter Miscellaneous Notes * Operative Note - Adleaida Olivas MD - 08/11/2016 11:59 AM ELECTRICAL AND RADIO MOCK UP MECHANIC TRICAL AND RADIO MOCK UP MECHANIC documented in this encounter Plan of Treatment Not on filedocumented as of this encounter Visit Diagnoses Not on filedocumented in this encounter Additional Health Concerns Last Indicated Resolved Time Infection Onset Date 08/30/2017 04/19/2018 12:13 PM CDT Influenza 08/30/2017 08/30/2019 08/30/2019 1:09 PM ELECTRICAL AND RADIO MOCK UP MECHANIC Influenza - Rule Out 08/30/2019 08/31/2019 09/17/2019 8:17 AM ELECTRICAL AND RADIO MOCK UP MECHANIC RSV 08/31/2019 documented as of this encounter
--- OUTSIDE RECORDS SUMMARY | 2020-03-16 14:10 | XMS REPORT | Encounter Summary ---
Author Author [facility] Organization [facility] Address Unknown Phone Unavailable Care Team Providers Care Concrete Inspector Name Role Phone Ebony Sharp MD PCP Encounter Details Care Team Description Date Type Department [place], Historical 08/13/2016 Hist-Telephone [place] [facility]ists [address] 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 Completed an d faxed back. Additional Follow-up [...] CDT Influenza 08/30/2017 08/30/2019 08/30/2019 1:09 PM FELT TIPPING MACHINE TENDER Influenza - Rule Out 08/30/2019 08/31/2019 09/17/2019 8:17 AM FELT TIPPING MACHINE TENDER RSV 08/31/2019 documented as of this encounter
--- OUTSIDE RECORDS SUMMARY | 2020-03-16 14:10 | XMS REPORT | Encounter Summary ---
Author Author [facility] Organization [facility] Address Unknown Phone Unavailable Care Team Providers Care Singeing Torch Operator Name Role Phone Ebony Sharp MD PCP Encounter Details Care Team Description Date Type Department [facility] 08/11/2016 Hist-Transcript [place] [facility] ion Encounter Specialists [address] [facility] [address] [place], [place] [address] Social History Date Tobacco Use Types Packs/Day Years Used Quit: 09/14/2009 Former Smoker Smokeless Tobacco: Never Used Drinks/Week oz/Week Comments Alcohol Use No Sex Assigned at Date Recorded Female Industry Job Start Date Occupation Not on file Not on file Not on file Travel End Travel History Travel Start No recent travel history available. documented as of this encounter Progress Notes * [facility] - 08/11/2016 2:07 PM ORACLE BRM DEVELOPER - History of Present Illness The patient presents for followup status post left tibiotalar arthrodesis. She reports that she has done poorly since her previous visit. [facility] Wednesday night when she had [...] in the alternate nostril. VITAMIN D (ERGOCALCIFEROL) 34060 UNIT CAPS (ERGOCALCIFEROL) 1 po q weekly [...] PA-C on 08/11/2016 Method used: [facility] [address] [place] [address] Ph: [phone] Fax: [phone] RxID: [id number] OXYCONTIN 10 MG T12A (OXYCODONE HCL) 1 tab bid #14 Tablet x 0 Entered by: Mendy Hall PA-C Authorized by: Adelaida Olivas MD Signed by: Mendy Hall PA-C on 08/11/2016 Method used: Print then Give to Patient RxID: [id number] Review of Systems General: Complains of weight [...] Capillary refill not assessed due to nail cape verdean. Radiographs: No imaging was obtained at todays [...] CDT Influenza 08/30/2017 08/30/2019 08/30/2019 1:09 PM ORACLE BRM DEVELOPER Influenza - Rule Out 08/30/2019 08/31/2019 09/17/2019 8:17 AM ORACLE BRM DEVELOPER RSV 08/31/2019 documented as of this encounter
--- OUTSIDE RECORDS SUMMARY | 2020-03-16 14:10 | XMS REPORT | Encounter Summary ---
Author Author [facility] Organization [facility] Address Unknown Phone Unavailable Care Team Providers Care Parish Worker Name Role Phone Ebony Sharp MD PCP Encounter Details Care Team Description Date Type Department Adelaida Olivas MD [address] [facility] [address] [place] [address] 08/06/2016 Hist-Telephone [place] [facility] [address] [facility] [address] [place], [place] [phone] Social History Date Tobacco Use Types Packs/Day [...] Adelaida Olivas MD - 08/06/2016 1:25 PM VP OF CUSTOMER EXPERIENCE STRATEGY Phone Note Call from Patient Summary of [...] Londono on August 06, 2016 1:31 PM OF CUSTOMER EXPERIENCE STRATEGY documented in this encounter Plan of Treatment Not on filedocumented as of this encounter Visit Diagnoses Not on filedocumented in this encounter Additional Health Concerns Last Indicated Resolved Time Infection Onset Date 08/30/2017 04/19/2018 12:13 PM CDT Influenza 08/30/2017 08/30/2019 08/30/2019 1:09 PM VP OF CUSTOMER EXPERIENCE STRATEGY Influenza - Rule Out 08/30/2019 08/31/2019 09/17/2019 8:17 AM VP OF CUSTOMER EXPERIENCE STRATEGY RSV 08/31/2019 documented as of this encounter
--- OUTSIDE RECORDS SUMMARY | 2020-03-16 14:10 | XMS REPORT | Encounter Summary ---
Author Author [facility] Organization [facility] Address Unknown Phone Unavailable Care Team Providers Care Emergency Medicine Physician Name Role Phone Ebony Sharp MD PCP Encounter Details Care Team Description Date Type Department Adelaida Olivas MD [address] [facility] [address] [place] [address] Other specified pre-operative examinatio n (Primary Dx) 07/23/2016 Transcribe [facility] [phone] Social History Date Tobacco Use Types Packs/Day [...] Results * Prothrombin Time/INR (07/23/2016 4:29 PM MANAGER OPERATIONAL) Protime 12.8 11.4 - 15.0 sec [facility] INR 1.0 0.8 - 1.2 [facility] Specimen Blood Performing Organization Address City/State/Zipcode Ph one Number [facility] [address] [place] [address] [facility] [address] [facility] [place] [address], [place] [phone] [facility] * APTT (07/23/2016 4:29 PM MANAGER OPERATIONAL) APTT 25 22 - 34 sec [facility] Specimen Blood Performing Organization Address City/State[facility] Ph one Number [facility] [address] [place] [address] [facility] [address] [place] [address], [place] [phone] [facility] * Complete Blood Count (07/23/2016 4:29 PM MANAGER OPERATIONAL) WBC 8.75 4.00 - 11.00 TH/uL [facility] [...] [address] [place] [address], [place] [phone] [facility] * Basic Metabolic Panel (07/23/2016 4:29 PM MANAGER OPERATIONAL) Sodium 145 133 - 147 MEQ/L [facility] [...] [facility] [address] [place] [place] [address] [facility] [address] [address], [facility] documented in this encounter Visit Diagnoses Diagnosis Other specified pre-operative examinati on documented in this encounter Additional Health Concerns Last Indicated Resolved Time Infection Onset Date 08/30/2017 04/19/2018 12:13 PM CDT Influenza 08/30/2017 08/30/2019 08/30/2019 1:09 PM MANAGER OPERATIONAL Influenza - Rule Out 08/30/2019 08/31/2019 09/17/2019 8:17 AM MANAGER OPERATIONAL RSV 08/31/2019 documented as of this encounter
--- OUTSIDE RECORDS SUMMARY | 2020-03-16 14:10 | XMS REPORT | Encounter Summary ---
Author Author [facility] Organization [facility] Address Unknown Phone Unavailable Care Team Providers Care Buckle Gluer Name Role Phone Ebony Sharp MD PCP Encounter Details Care Team Description Date Type Department [place], Historical 08/13/2016 Hist-Telephone [place] [facility]ists [address] [facility] [address] [place], [place] [phone] Social History Date Tobacco Use Types Packs/Day [...] encounter Miscellaneous Notes * Clinic Note - [facility] - 08/13/2016 2:52 PM CAR AUDIO INSTALLER Phone Note Call from Pharmacy Caller: [facility] Call For: Mendy Hall Summary of [...] Jimenez on 08/13/2016 Method used: Electronically to [facility] (retail) [address] [place] [address] Ph: [phone] Fax: [phone] RxID: [id number] documented in this encounter Plan of Treatment Not on filedocumented as of this encounter Visit Diagnoses Not on filedocumented in this encounter Additional Health Concerns Last Indicated Resolved Time Infection Onset Date 08/30/2017 04/19/2018 12:13 PM CDT Influenza 08/30/2017 08/30/2019 08/30/2019 1:09 PM CAR AUDIO INSTALLER Influenza - Rule Out 08/30/2019 08/31/2019 09/17/2019 8:17 AM CAR AUDIO INSTALLER RSV 08/31/2019 documented as of this encounter
--- OUTSIDE RECORDS SUMMARY | 2020-03-16 14:10 | XMS REPORT | Encounter Summary ---
Author Author [facility] Organization [facility] Address Unknown Phone Unavailable Care Team Providers Care Machine Adjuster Leader Name Role Phone Ebony Sharp MD PCP Encounter Details Care Team Description Date Type Department Adelaida Olivas MD [address] [facility] [address] [place] [address] 08/07/2016 Hist-Transcript [place] ion Encounter Specialists [address] [facility] [address] [place], [place] [id number] Social History Date Tobacco Use Types Packs/Day [...] Adelaida Olivas MD - 08/19/2016 7:38 AM MATERIALS ASSOCIATE Operative Report Left Ankle Imported By: Mindi Bautista 08/19/2016 7:38:03 AM External Attachment: Type: Image Comment: External Document RIALS ASSOCIATE documented in this encounter Plan of Treatment Not on filedocumented as of this encounter Visit Diagnoses Not on filedocumented in this encounter Additional Health Concerns Last Indicated Resolved Time Infection Onset Date 08/30/2017 04/19/2018 12:13 PM CDT Influenza 08/30/2017 08/30/2019 08/30/2019 1:09 PM MATERIALS ASSOCIATE Influenza - Rule Out 08/30/2019 08/31/2019 09/17/2019 8:17 AM MATERIALS ASSOCIATE RSV 08/31/2019 documented as of this encounter
--- OUTSIDE RECORDS SUMMARY | 2020-03-16 14:10 | XMS REPORT | Encounter Summary ---
Author Author [facility] Organization [facility] Address Unknown Phone Unavailable Care Team Providers Care Manufacturing Sales Representative Name Role Phone Ebony Sharp MD PCP Encounter Details Care Team Description Date Type Department Adelaida Olivas MD [address] [facility] [address] [place], [place] [id number] 08/18/2016 Hist-Transcript [facility] ion Encounter Specialists [address] [facility] [address] [place], [place] [id number] Social History Date Tobacco Use Types Packs/Day [...] * Juarez Noble - 08/18/2016 3:21 PM GUN STOCKER - History of Present Illness Presents today [...] in the alternate nostril. VITAMIN D (ERGOCALCIFEROL) 71377 UNIT CAPS (ERGOCALCIFEROL) 1 po q weekly [...] used: Print then Give to Patient RxID: [id number] OXYCONTIN 10 MG T12A (OXYCODONE HCL) 1 tab bid #60 x 0 Entered by: Sharona Scott Authorized by: Adelaida Olivas MD Signed by: Sharona Scott on 08/18/2016 Method used: Print then Give to Patient RxID: [id number] Vital Signs Ht: 60 in. Wt: 224 [...] CDT Influenza 08/30/2017 08/30/2019 08/30/2019 1:09 PM GUN STOCKER Influenza - Rule Out 08/30/2019 08/31/2019 09/17/2019 8:17 AM GUN STOCKER RSV 08/31/2019 documented as of this encounter
--- OUTSIDE RECORDS SUMMARY | 2020-03-16 14:10 | XMS REPORT | Encounter Summary ---
Author Author [facility] Organization [facility] Address Unknown Phone Unavailable Care Team Providers Care Civil Celebrant Name Role Phone Ebony Sharp MD PCP Reason for Referral * Diagnostic Imaging (Routine) Referred By Contact Referred To Contact Status Reason Specialty Diagnoses / Procedures Mendy Carpenter PA-C [address] [address] Closed Diagnoses Left ankle pain P rocedures US Venous Duplex Lower Extremity left Reason for Visit * Diagnostic Imaging (Routine) Referred By Contact Referred To Contact Status Reason Specialty Diagnoses / Procedures Mendy Carpenter PA-C [address] [address] Closed Diagnoses Left ankle pain P rocedures US Venous Duplex Lower Extremity left Encounter Details Care Team Description Date Type Department Mnedy Carpenter PA-C [address] [address] [phone] Left ankle pain 08/11/2016 [facility] [address] [place], [place] [phone] Social History Date Tobacco Use Types Packs/Day [...] an kle pain EXTREMITY LEFT 3:39 PM DOCTOR OF VETERINARY MEDICINE documented in this encounter Results * US Venous Duplex Lower Extremity left (08/11/2016 3:39 PM DOCTOR OF VETERINARY MEDICINE) Specimen Impressions Performed At No left lower extremity DVT. LEVI READING SITE: [facility] Narrative Performed At Patient: ISIAH PATTEN Sex#: F # [id number] Jose#: [id number] Location: [facility] Procedure Requested: [id number] US VENOU S DUPLEX LOWER EXTREMITY LEFT [...] Rad Results In - 08/11/2016 3:51 PM DOCTOR OF VETERINARY MEDICINE Patient: ISIAH PATTEN Sex#: F # [id number] Jose#: [id number] Location: [facility] Procedure Requested: [id number] US VENOUS DUPLEX LOWER EXTREMITY LEFT Reason [...] No left lower extremity DVT. READING SITE: [facility] Address City/State/Zipcode Ph one Number [facility] documented in this encounter Visit Diagnoses Diagnosis Left ankle pain Pain in joint, ankle and foot documented in this encounter
--- OUTSIDE RECORDS SUMMARY | 2020-03-16 14:10 | XMS REPORT | Encounter Summary ---
Author Author [facility] Organization [facility] Address Unknown Phone Unavailable Care Team Providers Care Quality Systems Manager Name Role Phone Ebony Sharp [...] Type Department Walker Funez MD [address] [facility] [address] [place] [address] [phone] Draining postoperative wound, initial en counter (Primary Dx); Acute bleeding; Chronic obstructive pulmonary disease, unspecified COPD type ([facility]); Essential hypertension; SASHA on CPAP; Type 2 diabetes mellitus without complication, with long-term current use of insulin ([facility]) 08/07/2016 Emergency [facility] 08/08/2016 [address] [place], [place] [phone] Social History Date Tobacco Use Types Packs/Day [...] Comments Vital Sign 124/75 08/08/2016 11:57 AM LOT PORTER Blood Pressure 80 08/08/2016 11:57 AM LOT PORTER Pulse 36.8 C (98.2 F) 08/08/2016 11:57 AM LOT PORTER Temperature 18 08/08/2016 11:57 AM LOT PORTER Respiratory Rate 93% 08/08/2016 11:57 AM LOT PORTER Oxygen Saturation - - Inhaled Oxygen Concentration 108.6 kg (239 lb 6.7 oz) 08/07/2016 8:19 PM LOT PORTER Weight 157.5 cm (5' 2") 08/07/2016 8:19 PM LOT PORTER Height 43.79 08/07/2016 8:19 PM LOT PORTER Body Mass Index documented in this encounter Discharge Summaries * Walker Funez MD - 08/08/2016 12:15 PM LOT PORTER [facility] Orthopedic Discharge Summary Patient Name: Caren [...] are duplicate medications prescribed to the patient PORTER documented in this encounter Discharge Instructions * Attachments The following attachments cannot be sent through Care Everywhere.* DIABETES, FOOT CARE PROGRAM, YOUR (QATARI) * POST OP WOUND CHECK, GENERAL (QATARI) documented in this encounter Medications at Time [...] Walker Funez MD - 08/08/2016 12:11 PM LOT PORTER Patient doing well this AM. Pain improved and tolerable. She has kept elevated. No more bleeding through splint. Answered all questions. PORTER documented in this encounter H&P Notes * Walker Funez MD - 08/07/2016 6:57 PM LOT PORTER [facility] Consult Note [phone] 08/07/2016 Patient Identification Patient's Name: Caren Ernestina Patten : 1950 Admit Date: 08/07/2016 Attending Provider: No att. providers found Patient was seen and evaluated by [facility] at the reques t of No att. providers found for orthopedic needs. Primary Care Physician: Ebony Sharp MD Admitting Diagnosis: There are no admission diagnoses documented for this encoun ter. History of Present Illness Caren Patten is a 65 y.o. female 65-year-old female presents for right ankle bl eeding. She states that [facility] She states she was discharged to home [...] D/C tomorrow. Walker Funez 08/07/2016 6:58 PM PORTER documented in this encounter Consult Notes * Lilibeth Redmond RN TINSMITH APPRENTICE - 08/08/2016 9:38 AM LOT PORTER Associated Order(s): IP CONSULT TO HOSPITALIST [facility] COOK ENCHILADA Hospitalist - Consult History & Physical Patient [...] are 120-130s. [facility] She denies any hypoglycemic episodes. She is [...] inue to follow along. Lilibeth Redmond RN TINSMITH APPRENTICE [facility] Please page through physician paging. . PORTER Associated attestation - Omar Elliott DO - 08/18/2016 2:14 PM LOT PORTER Attending Physician Attestation: This note was reviewed for chart compliance, but I have not seen or discussed th is case with the nurse practitioner. Omar Elliott DO [facility] [phone] documented in this encounter ED Notes * Neena Diaz RN - 08/07/2016 6:30 PM LOT PORTER Splint applied per orders. Skin warm and pink. Pt denies any numbness or tinglin g. PORTER * Manisha Poole APRN - 08/07/2016 5:30 PM LOT PORTER 08/07/2016 [facility] History Chief Complaint Patient presents with Post-op Problem reports surgical fusion on left foot done today around 0930. went home around 1530 and noticed there was bleeding on dressing. has not called surgeon, dr lucretia david reports pain 2/10, sore. HPI Comments: 65-year-old female presents for right ankle bleeding. She states that she had surgery at outpatient [facility] [place] [facility]. She states she was discharged to home [...] and splint the ankle as previously splinted BRAID MAKER. [id number] spoke with the patient regarding redressing [...] to admit the pt to the hospital, [facility] consulted due to pts hx of COPD , DM, and htn. Pt given 2 percocets in ed for pain. Pt had been dc'd to home with rx for percocet. I have reviewed all of the labs and radiology studies. ED Course ED Clinical Impression 1. Draining postoperative wound, initial encounter 2. Acute bleeding 3. Chronic obstructive pulmonary disease, unspecified COPD type ([facility]) 4. Essential hypertension 5. SASHA on CPAP 6. Type 2 diabetes mellitus without complication, with long-term current use of insulin ([facility]) Manisha Poole, TINSMITH APPRENTICE 08/07/16 192 Manisha Ever Poole, TINSMITH APPRENTICE 08/10/16 0464 PORTER documented in this encounter Miscellaneous Notes * Assessment & Plan Note - Lilibeth Redmond RN TINSMITH APPRENTICE - 08/08/2016 11:55 AM LOT PORTER Associated Problem(s): Acute bleeding (Resolved 01/11/2019) Bleeding after left ankle surgery yesterday Splint was reapplied in ED yesterday Stable, dressings D/I Hgb 11.6, [facility] Ortho consulted, per note yesterday anticipated discharge today PORTER * Assessment & Plan Note - Lilibeth Redmond RN TINSMITH APPRENTICE - 08/08/2016 11:53 AM LOT PORTER Associated Problem(s): COPD (chronic obstructive pulmonary disease) (HCC) Not in acute exacerbation Continue Breo and prn albuterol Continue chronic 2L O2 PORTER * Assessment & Plan Note - Lilibeth Redmond RN TINSMITH APPRENTICE - 08/08/2016 11:52 AM LOT PORTER Associated Problem(s): Essential hypertension Normotensive Continue BB and Norvasc PORTER * Assessment & Plan Note - Lilibeth Redmond RN TINSMITH APPRENTICE - 08/08/2016 11:52 AM LOT PORTER Associated Problem(s): SASHA on CPAP Compliant with CPAP Continue PORTER * Assessment & Plan Note - Lilibeth Redmond RN TINSMITH APPRENTICE - 08/08/2016 11:51 AM LOT PORTER Associated Problem(s): Type 2 diabetes mellitus without complication (HCC) (Reso lved 02/04/2017) A1c 8.6% this month Continue Lantus at HS AC/HS accu checks CC, SH diet PORTER * Plan of Care - Abida Ndiaye RN - 08/08/2016 9:03 AM LOT PORTER Problem: Risk for Falls Goal: Patient will not fall during their Inpatient stay Outcome: Adequate for Discharge Problem: Acute Pain Goal: Pain controlled to patients/families desired goal Outcome: Adequate for Discharge Problem: Bleeding Precautions Goal: Excessive bleeding will be minimized Outcome: Adequate for Discharge PORTER * Plan of Dianna Sabillon RN - 08/07/2016 10:11 PM LOT PORTER Problem: Acute Pain Goal: Pain controlled to patients/families desired goal Outcome: Progressing Problem: Bleeding Precautions Goal: Excessive bleeding will be minimized Outcome: Adequate for Discharge PORTER * Plan of Dianna Sabillon RN - 08/07/2016 10:10 PM LOT PORTER Problem: Risk for Falls Goal: Patient will not fall during their Inpatient stay Outcome: Progressing PORTER documented in this encounter Plan of Treatment Date/Time Name Type Priority Associated Diag noses 08/18/2016 2:14 PM LOT PORTER Consult to Hospitalist Consult Routine documented as of this encounter Procedures Comments Procedure Name Priority Date/Time Associated Diag nosis GLUCOSE POC Routine 08/08/2016 12:16 PM LOT PORTER PROTHROMBIN TIME/INR STAT 08/07/2016 8:35 PM LOT PORTER CBC AND DIFF (MANUAL DIFF STAT 08/07/2016 IF NECESSARY) 8:35 PM LOT PORTER BASIC METABOLIC PANEL STAT 08/07/2016 8:35 PM LOT PORTER documented in this encounter Results * GLUCOSE POC (08/08/2016 12:16 PM LOT PORTER) Glucose POC 188 (H) 70 - 100 mg/dL [facility] Specimen Performing Organization Address City/State/Zipcode Ph one Number [facility] [address] [facility] [place], [place] [address] [facility] [address] [facility] [address], [place] [phone] [facility] * Prothrombin Time/INR (08/07/2016 8:35 PM LOT PORTER) Protime 13.7 11.4 - 15.0 sec [place] ZAZU[facility] [facility] INR 1.1 0.8 - 1.2 [facility] Specimen Blood Performing Organization Address City/State/[facility] Ph one Number [facility] [address] [facility] [place], [place] [phone] [facility] [address] [facility] [place] [address], [place] [phone] [facility] * Basic Metabolic Panel (08/07/2016 8:35 PM LOT PORTER) Pathologist [facility] Sodium 141 133 - 147 MEQ/L [facility] Potassium 3.7 3.5 - 5.3 MEQ/L [facility] Chloride 104 96 - 112 MEQ/L [facility] Carbon Dioxide 28 20 - 32 MEQ/L [facility] Anion Gap 10 5 - 17 [facility] Calcium 8.6 8.4 - 10.5 mg/dL [facility] Glucose 239 (H) 70 - 100 mg/dL [facility] Blood Urea 16 7 - 26 mg/dL [facility] Nitrogen [facility] Creatinine 0.8 0.4 - 1.1 mg/dL [facility] eGFR Female AA 87 [...] [facility] [address] [facility] [place] [facility] [place] [id number] [facility] [address] [facility] [address], [facility] * CBC and Diff (manual diff if necessary) (08/07/2016 8:35 PM LOT PORTER) WBC 11.97 (H) 4.00 - 11.00 TH/uL [...] LAB %Lymphocytes 21 15 - 47 % [place] [facility] %Monocytes 12 0 - 12 % [facility] %Eosinophils 2 0 [...] [facility] [address] [place] [address] [facility] [address] [facility] [place] [address], [facility] documented in this encounter Visit [...] not exceed 2 GM/DAY., 08/07/2016 9:43 PM LOT PORTER 25 mg amitriptyline (ELAVIL) tablet 25 mg Given 25 mg, Oral, Nightly, First dose on Wed08/07/16 at 2100 08/08/2016 8:32 AM LOT PORTER 5 mg amLODIPine (NORVASC) tablet 5 mg Given 5 mg, Oral, Daily, First dose on 08/08/16 at 0900 08/08/2016 8:32 AM LOT PORTER 20 mg citalopram (CeleXA) tablet 20 mg [...] glucose greater than 80., 08/08/2016 8:32 AM LOT PORTER 30 mg Abdomina l Tissue enoxaparin (LOVENOX) syringe 30 mg Given 30 mg, Subcutaneous, Every 12 hours scheduled, First dose (after last modification) on 08/08/16 at 0900 08/08/2016 7:24 AM LOT PORTER 1 puff fluticasone-vilanterol (BREO ELLIPTA) Given 100-25 mcg/actuation inhaler 1 puff 1 puff, Inhalation, Daily, First dose o n 08/08/16 at 0900, Rinse mouth with water after use if patient not on vent. , 08/08/2016 8:32 AM LOT PORTER 300 mg gabapentin (NEURONTIN) capsule 300 mg Given 300 mg, Oral, 3 times daily, First dose on Wed08/07/16 at 2100 300 mg Given 08/07/2016 9:43 PM LOT PORTER glucagon (GLUCAGEN) injection 1 mg 1 mg, [...] patient o n side., 08/07/2016 9:43 PM LOT PORTER 15 Units Abdomina l Tissue insulin glargine [...] - dose per table, 08/08/2016 11:18 AM LOT PORTER 3 mL ipratropium-albuterol (DUO-NEB) 0.5-3 Given mg/3 mL nebulizer solution 3 mL 3 mL, Inhalation, 4 times daily, First dose on Wed08/07/16 at 2100 3 mL Given 08/08/2016 7:24 AM LOT PORTER 3 mL Given 08/07/2016 9:06 PM LOT PORTER metoclopramide (REGLAN) injection 5-10 mg 5-10 mg, [...] 6 hours as needed., 08/08/2016 8:32 AM LOT PORTER 100 mg metoprolol tartrate (LOPRESSOR) tablet Given 100 mg 100 mg, Oral, 2 times daily, First dose on Wed08/07/16 at 2100 100 mg Given 08/07/2016 9:42 PM LOT PORTER 08/08/2016 10:08 AM LOT PORTER 4 mg morphine injection 2-5 mg Given [...] therapy., 4 mg Given 08/08/2016 6:10 AM LOT PORTER 4 mg Given 08/08/2016 3:01 AM LOT PORTER 08/08/2016 8:39 AM LOT PORTER 4 mg ondansetron (ZOFRAN) 4 mg/2 mL injection Given 4 mg 4 mg, Intravenous, Every 6 hours PRN, nausea, vomiting, Starting Wed08/07/16 at 203608/08/2016 4:28 AM LOT PORTER 10 mg oxyCODONE (ROXICODONE) immediate release Given tablet 5-10 mg 5-10 mg, Oral, Every 4 hours PRN, sever e pain (pain score 7-10), Starting Wed08/07/16 at 2037, Use first line for severe pain (7-10), 10 mg Given 08/07/2016 9:50 PM LOT PORTER 08/08/2016 8:39 AM LOT PORTER 1 tablet oxyCODONE-acetaminophen (PERCOCET) 5-325 Given mg 1 tablet 1 tablet, Oral, Every 4 hours PRN, moderate pain (pain score 4-6), severe pain (pain score 7-10), Starting Wed08/07/16 at 2036, Do not exceed 4 GM/DA Y of acetaminophen. If 65 or older do no t exceed 3 GM/DAY. If chronic alcoholic d o not exceed 2 GM/DAY., 1 tablet Given 08/07/2016 11:55 PM LOT PORTER 08/07/2016 5:40 PM LOT PORTER 2 tablets oxyCODONE-acetaminophen (PERCOCET) 5-325 Given mg 2 tablet 2 tablet, Oral, Once, Wed08/07/16 at 1731, For 1 dose, Do not exceed 4 GM/DA Y of acetaminophen. If 65 or older do no t exceed 3 GM/DAY. If chronic alcoholic d o not exceed 2 GM/DAY., 08/08/2016 6:09 AM LOT PORTER 40 mg pantoprazole (PROTONIX) EC tablet 40 mg Given 40 mg, Oral, Every morning before breakfast, First dose (after last modification) on Wed08/08/16 at 0700, DO NOT CRUSH OR CHEW., 08/07/2016 9:43 PM LOT PORTER 40 mg pravastatin (PRAVACHOL) tablet 40 mg [...]
--- OUTSIDE RECORDS SUMMARY | 2020-03-16 14:10 | XMS REPORT | Encounter Summary ---
Author Author [facility] Organization [facility] Address Unknown Phone Unavailable Care Team Providers Care Director Telemetry Name Role Phone Ebony Sharp MD PCP Encounter Details Care Team Description Date Type Department Adelaida Olivas MD [address] [facility] [address] [place] [address] 08/10/2016 Hist-Telephone [place] [facility] [address] [facility] [address] [place], [place] [phone] Social History Date Tobacco Use Types Packs/Day [...] Adelaida Olivas MD - 08/10/2016 10:04 AM BLIND AIDE Phone Note Call from Other Clinic Summary of call: Silvestre the patient's daughter is calling and would like to follow up with Dr. Olivas on what he suggests about the patient's ER visit after surgery. She would like to know what they should do about the incision. Please c all back at [phone] Call taken by: Delores Nino on August 10, 2016 10:05 AM Follow-up for Phone Call Follow-up Details: Per Mendy, do not change dressing. Have patient come in tod ay or tomorrow to see her. Message relayed and appointment made for [facility] as they couldn't come in today. Follow-up by: Lilian Greenwood on August 10, 2016 12:41 PM D AIDE documented in this encounter Plan of Treatment Not on filedocumented as of this encounter Visit Diagnoses Not on filedocumented in this encounter Additional Health Concerns Last Indicated Resolved Time Infection Onset Date 08/30/2017 04/19/2018 12:13 PM CDT Influenza 08/30/2017 08/30/2019 08/30/2019 1:09 PM BLIND AIDE Influenza - Rule Out 08/30/2019 08/31/2019 09/17/2019 8:17 AM BLIND AIDE RSV 08/31/2019 documented as of this encounter
--- OUTSIDE RECORDS SUMMARY | 2020-03-16 14:10 | XMS REPORT | Encounter Summary ---
Author Author [facility] Organization [facility] Address Unknown Phone Unavailable Care Team Providers Care Process Mold Technician Name Role Phone Ebony Sharp MD PCP Encounter Details Care Team Description Date Type Department Adelaida Olivas MD [address] [facility] [address] [place], [place] [id number] 08/18/2016 Hist-Transcript [place] [facility] ion Encounter Specialists [address] [facility] [address] [place], [place] [phone] Social History Date Tobacco Use Types Packs/Day [...] Adelaida Olivas MD - 08/27/2016 8:59 AM PHYSICIAN ALLERGIST IMMUNOLOGIST Cast Note A well padded short leg non-weight bearing fiberglass cast was applied. They were informed of precautions, to keep this clean and dry. They are to call the office if there is any incident or issues that arise. ICIAN ALLERGIST IMMUNOLOGIST documented in this encounter Plan of Treatment Not on filedocumented as of this encounter Visit Diagnoses Not on filedocumented in this encounter Additional Health Concerns Last Indicated Resolved Time Infection Onset Date 08/30/2017 04/19/2018 12:13 PM CDT Influenza 08/30/2017 08/30/2019 08/30/2019 1:09 PM PHYSICIAN ALLERGIST IMMUNOLOGIST Influenza - Rule Out 08/30/2019 08/31/2019 09/17/2019 8:17 AM PHYSICIAN ALLERGIST IMMUNOLOGIST RSV 08/31/2019 documented as of this encounter
--- OUTSIDE RECORDS SUMMARY | 2020-03-16 14:10 | XMS REPORT | Encounter Summary ---
Author Author [facility] Organization [facility] Address Unknown Phone Unavailable Care Team Providers Care Education Administrative Assistant Name Role Phone Ebony Sharp MD PCP Encounter Details Care Team Description Date Type Department [place] 08/07/2016 Hist-Transcript [place] [facility] ion Encounter Specialists [address] [facility] [address] [place], [place] [phone] Social History Date Tobacco Use Types Packs/Day [...] encounter Miscellaneous Notes * Operative Note - [place] [facility] - 08/11/2016 12:02 PM CREOSOTING ENGINEER documented in this encounter Plan of Treatment Not on filedocumented as of this encounter Visit Diagnoses Not on filedocumented in this encounter Additional Health Concerns Last Indicated Resolved Time Infection Onset Date 08/30/2017 04/19/2018 12:13 PM CDT Influenza 08/30/2017 08/30/2019 08/30/2019 1:09 PM CREOSOTING ENGINEER Influenza - Rule Out 08/30/2019 08/31/2019 09/17/2019 8:17 AM CREOSOTING ENGINEER RSV 08/31/2019 documented as of this encounter
--- OUTSIDE RECORDS SUMMARY | 2020-03-16 14:10 | XMS REPORT | Encounter Summary ---
Author Author [facility] Organization [facility] Address Unknown Phone Unavailable Care Team Providers Care Healthcare Associate Name Role Phone Ebony Sharp MD PCP Encounter Details Care Team Description Date Type Department Adeliada Olivas MD [address] [facility] [address] [place] [address] 08/07/2016 Hist-Transcript [facility] En[facility] Specialists [address] [facility] [address] [place], [place] [id number] Social History Date Tobacco Use Types Packs/Day [...] Adelaida Olivas MD - 08/11/2016 11:47 AM CHOPPING MACHINE OPERATOR Operative Report Left Ankle Imported By: Socorro Lehman 08/11/2016 11:47:08 AM External Attachment: Type: Image Comment: External Document PING MACHINE OPERATOR documented in this encounter Plan of Treatment Not on filedocumented as of this encounter Visit Diagnoses Not on filedocumented in this encounter Additional Health Concerns Last Indicated Resolved Time Infection Onset Date 08/30/2017 04/19/2018 12:13 PM CDT Influenza 08/30/2017 08/30/2019 08/30/2019 1:09 PM CHOPPING MACHINE OPERATOR Influenza - Rule Out 08/30/2019 08/31/2019 09/17/2019 8:17 AM CHOPPING MACHINE OPERATOR RSV 08/31/2019 documented as of this encounter
--- OUTSIDE RECORDS SUMMARY | 2020-03-16 14:10 | XMS REPORT | Encounter Summary ---
Author Author [facility] Organization [facility] Address Unknown Phone Unavailable Care Team Providers Care Utility Maintenance Worker Name Role Phone Ebony Sharp MD PCP Encounter Details Care Team Description Date Type Department Adelaida Olivas MD [address] [facility] [address] [place] [address] 08/07/2016 [facility] [address] [facility] [address] [place], [place] [id number] Social History Date Tobacco Use Types Packs/Day [...] Adelaida Olivas MD - 08/07/2016 2:27 PM OIL EXPELLER Phone Note Call from Pharmacy Summary of call: kena [phone], patient getting [place] / from Dr Arnav rosas [facility] [phone], 1 tab 5 times daily. Along with [...] the message. Please call TK back at [phone] ext: [phone] Additional Follow-up by: Daphne Roa [...] a week to be processed through [facility] and she understands. She will follow up on Wednesday as scheduled. Additional Follow-up by: Karin Saenz on August 13, 2016 1:57 PM EXPELLER documented in this encounter Plan of Treatment Not on filedocumented as of this encounter Visit Diagnoses Not on filedocumented in this encounter Additional Health Concerns Last Indicated Resolved Time Infection Onset Date 08/30/2017 04/19/2018 12:13 PM CDT Influenza 08/30/2017 08/30/2019 08/30/2019 1:09 PM OIL EXPELLER Influenza - Rule Out 08/30/2019 08/31/2019 09/17/2019 8:17 AM OIL EXPELLER RSV 08/31/2019 documented as of this encounter
--- OUTSIDE RECORDS SUMMARY | 2020-03-16 14:10 | XMS REPORT | Encounter Summary ---
Author Author [facility] Organization [facility] Address Unknown Phone Unavailable Care Team Providers Care Real Estate Account Executive Name Role Phone Ebony Sharp MD PCP Reason for Visit * Reason Comments Follow-up [place] left ankle/postop, ts m [id number]: Appt. Reminder (2016 06:21 PM) Phone Call - Message Delivered (X=A nswering Machine) Encounter Details Care Team Description Date Type Department Adelaida Olivas MD [address] [facility] [address] [place] [address] [phone] 08/18/2016 Hist[facility]Appointmen [facility] [address] [facility] [address] [place] [address] Social History Date Tobacco Use Types Packs/Day [...]
--- OUTSIDE RECORDS SUMMARY | 2020-03-16 14:10 | XMS REPORT | Encounter Summary ---
Author Author [facility] Organization [facility] Address Unknown Phone Unavailable Care Team Providers Care Lead Mechanic Name Role Phone Ebony Sharp MD PCP Encounter Details Care Team Description Date Type Department Aide, Juarez 08/11/2016 Hist-Transcript [facility] ion Encounter Specialists [address] [address] [place] [address] Social History Date Tobacco Use Types Packs/Day Years Used Quit: 09/14/2009 Former Smoker Smokeless Tobacco: Never Used Drinks/Week oz/Week Comments Alcohol Use No Sex Assigned at Date Recorded Female Industry Job Start Date Occupation Not on file Not on file Not on file Travel End Travel History Travel Start No recent travel history available. documented as of this encounter Progress Notes * Aide, Juarez - 09/10/2016 7:55 AM PRISON PSYCHIATRIST Cast Note A well padded short leg [...] CDT Influenza 08/30/2017 08/30/2019 08/30/2019 1:09 PM PRISON PSYCHIATRIST Influenza - Rule Out 08/30/2019 08/31/2019 09/17/2019 8:17 AM PRISON PSYCHIATRIST RSV 08/31/2019 documented as of this encounter
--- OUTSIDE RECORDS SUMMARY | 2020-03-16 14:11 | XMS REPORT | Encounter Summary ---
Author Author [facility] Organization [facility] Address Unknown Phone Unavailable Care Team Providers Care Internal Recruiter Name Role Phone Ebony Sharp MD PCP Reason for Visit * Reason Comments Follow-up 3mth fu Encounter Details Care Team Description Date Type Department Ebony Sharp MD [address] [facility] [address] [place] [address] Type 2 diabetes mellitus without complic ation, 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) (Primary Dx); Morbid obesity due to excess calories (HCC); Hyperlipidemia, unspecified hyperlipidemia type 07/23/2016 Office Visit [facility] [address] [facility] [address] [place] [address] Social History Date Tobacco Use [...] Comments Vital Sign 134/80 07/23/2016 3:48 PM JUVENILE CORRECTIONAL OFFICER Blood Pressure 74 07/23/2016 3:48 PM JUVENILE CORRECTIONAL OFFICER Pulse - - Temperature - - Respiratory Rate - - Oxygen Saturation - - Inhaled Oxygen Concentration 108.4 kg (239 lb) 07/23/2016 3:48 PM JUVENILE CORRECTIONAL OFFICER Weight 157.5 cm (5' 2") 07/23/2016 3:48 PM JUVENILE CORRECTIONAL OFFICER Height 43.71 07/23/2016 3:48 PM JUVENILE CORRECTIONAL OFFICER Body Mass Index documented in this encounter Progress Notes * Ebony Sharp MD - 07/23/2016 3:30 PM JUVENILE CORRECTIONAL OFFICER CC: Follow-up (3mth fu ) HPI : [...] her bariatric surgery . Ebony Sharp MD NILE CORRECTIONAL OFFICER documented in this encounter Plan of Treatment Not on filedocumented as of this encounter Results * Lipid Panel (07/23/2016 4:28 PM JUVENILE CORRECTIONAL OFFICER) Cholesterol 200 100 - 200 mg/dL [facility] HDL Cholesterol 49 40 - 110 mg/dL [facility] Non-HDL 151 (H) 0 - 130 mg/dL [facility] Cholesterol [facility] Triglycerides 208 (H) 0 - 150 mg/dL [facility] LDL Cholesterol 109 (H) 0 - 99 mg/dL [facility] Cholesterol/HDL 4.1 0.0 - 4.5 [facility] Specimen Performing Organization Address City/State/[facility] one Number [facility] [address] LABORATORIES * Hemoglobin A1C (07/23/2016 4:28 PM JUVENILE CORRECTIONAL OFFICER) Hemoglobin A1C 8.6 (H) 4.0 - 5.6 % [facility] Comment: REGIONAL Non-diabetic 4.0 - LABORATORIES 5.6 % Prediabetes 5.7 - 6.4 % Diabetes >= 6.5 % Specimen Performing Organization Address [facility] one Number [facility] [address] [address] LABORATORIES * Thyroid Stimulating Hormone (07/23/2016 4:28 PM JUVENILE CORRECTIONAL OFFICER) Thyroid 0.63 0.47 - 4.68 uIU/mL [facility] Hormone LABORATORIES Specimen Performing Organization Address [facility] one Number [facility] [address] [address] LABORATORIES documented in this encounter Visit Diagnoses Diagnosis Type 2 diabetes mellitus without compli cation, 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) Morbid obesity due to excess calories ( HCC) Hyperlipidemia, unspecified hyperlipide prasanna type documented in this encounter
--- OUTSIDE RECORDS SUMMARY | 2020-03-16 14:11 | XMS REPORT | Encounter Summary ---
Author Author [facility] Organization [facility] Address Unknown Phone Unavailable Care Team Providers Care Sexual Abuse Counsellor Name Role Phone Ebony Sharp MD PCP Encounter Details Care Team Description Date Type Department Ebony Sharp MD [address] [facility] [address] [place], [place] [id number] Type 2 diabetes mellitus without complic ation, 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); Hyperlipidemia, unspecified hyperlipidemia type 07/23/2016 [facility] [phone] Social History Date Tobacco Use Types Packs/Day [...] 2 bela betes mellitus 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, 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) LIPID PANEL Routine 07/23/2016 Type 2 diabetes mellitus 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, 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) Hyperlipidemia, unspecified hyperlipidemia type HEMOGLOBIN A1C Routine 07/23/2016 Type 2 diabetes mellitus 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, 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) documented in this encounter Results * Lipid Panel (07/23/2016 4:28 PM VEGETABLE II FARMWORKER) Cholesterol 200 100 - 200 mg/dL [facility] HDL Cholesterol 49 40 - 110 mg/dL [facility] Non-HDL 151 (H) 0 - 130 mg/dL [facility] LABORATORIES Triglycerides 208 (H) 0 - 150 mg/dL [facility] LDL Cholesterol 109 (H) 0 - 99 mg/dL [facility] Cholesterol/HDL 4.1 0.0 - 4.5 [facility] Ratio REG[facility]AL LABORATORIES Specimen Performing Organization Address [facility] Ph one Number [facility] [address] [place] [phone] LABORATORIES * Hemoglobin A1C (07/23/2016 4:28 PM VEGETABLE II FARMWORKER) Hemoglobin A1C 8.6 (H) 4.0 - 5.6 % [facility] Comment: REGIONAL Non-diabetic 4.0 - LABORATORIES 5.6 % Prediabetes 5.7 - 6.4 % Diabetes >= 6.5 % Specimen Performing Organization Address City/[facility] Ph one Number [facility] [address] [place] [phone] LABORATORIES * Thyroid Stimulating Hormone (07/23/2016 4:28 PM VEGETABLE II FARMWORKER) Thyroid 0.63 0.47 - 4.68 uIU/mL [facility] Stimulating [facility] Hormone LABORATORIES Specimen Performing Organization Address City/[facility] Ph one Number [facility] [address] [place] [phone] LABORATORIES documented in this encounter Visit Diagnoses Diagnosis Type 2 diabetes mellitus without compli cation, 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) Hyperlipidemia, unspecified hyperlipide prasanna type documented in this encounter
--- OUTSIDE RECORDS SUMMARY | 2020-03-16 14:11 | XMS REPORT | Encounter Summary ---
Author Author [facility] Organization [facility] Address Unknown Phone Unavailable Care Team Providers Care Entry Level Project Engineer Name Role Phone Ebony Sharp [...] no forwarding address Jackson Gonzalez MD [address] [place] [address] [phone] Katja Guzman, DO [address] [place] [address] [phone] Walker Stout MD [address] [place] [address] [phone] COPD exacerbation (HCC) (Primary Dx); Pneumonia of both lungs due to infectious organism, unspecified part of lung; Hypoxia 06/29/2016 [facility] 07/02/2016 [address] [facility], [place] [id number] Social History Date Tobacco Use Types Packs/Day [...] Comments Vital Sign 133/78 07/02/2016 1:56 PM STRUCTURAL BIOLOGIST Blood Pressure 79 07/02/2016 1:56 PM STRUCTURAL BIOLOGIST Pulse 36.8 C (98.3 F) 07/02/2016 1:56 PM STRUCTURAL BIOLOGIST Temperature 20 07/02/2016 1:56 PM STRUCTURAL BIOLOGIST Respiratory Rate 95% 07/02/2016 1:56 PM STRUCTURAL BIOLOGIST Oxygen Saturation - - Inhaled Oxygen Concentration 110.8 kg (244 lb 4.3 oz) 07/01/2016 5:18 AM STRUCTURAL BIOLOGIST Weight 157.5 cm (5' 2") 06/29/2016 8:05 PM STRUCTURAL BIOLOGIST Height 44.68 06/29/2016 8:05 PM STRUCTURAL BIOLOGIST Body Mass Index documented in this encounter Discharge Summaries * Ying Chavez RN FISHERIES MANAGER - 07/02/2016 3:08 PM STRUCTURAL BIOLOGIST [facility] SERVER SUPPORT TECHNICIAN Hospitalist - Discharge Summary Patient Name: Isiah [...] will continue Guaifenesin AC cough syrup at [facility]. The patient's discharge plan was discussed fully [...] activity as tolerated Scheduled Follow Up Appointments/Studies ([facility]): Future Appointments Date Time Provider Department Center [...] MG tablet Commonly known as: PEPCID FLUVIRIN 1505-0625 45 mcg (15 mcg x 3)/0.5 mL [...] evidence of pulmonary thromboembolic disease. READING SITE: [facility] ATTESTATION STATEMENT: The Staff Radiologist [...] characterization when patient condition permits. READING SITE: [facility] Cardiac Studies during this encouter: No [...] Result Gram stain indicates specimen is not customer counter representative of lower respiratory tract secretions. Culture not performed. Please consult Microbiology if clinical considerations warrant complete processing of this specimen. Specimen will be held 5 days. Culture Result If further workup of this specimen is warranted please phone [phone]) Culture, Blood (Separate sites 15 minutes apart) Collection Time: 06/29/16 4:01 PM - Culture Result No growth at 2 days Culture, Blood (Separate sites 15 minutes apart) Collection Time: 06/29/16 6:30 PM - Culture Result No growth at 2 days Additional Studies: None Procedures: None Time spent on this inpatient discharge was greater than 30 minutes. Ying Chavez RN APRN [place] Hospitalist Please page through physician paging. . CTURAL BIOLOGIST documented in this encounter Discharge Instructions * Attachments The following attachments cannot be sent through Care Everywhere.* COPD FLARE (CONGOLESE) * COUGHING TECHNIQUES, DISCHARGE INSTRUCTIONS (CONGOLESE) * OXYGEN, USING AT HOME (CONGOLESE) * CODEINE PHOSPHATE, GUAIFENESIN ORAL SYRUP (CONGOLESE) * PREDNISOLONE ORAL TABLET (CONGOLESE) * LEVOFLOXACIN ORAL TABLET (CONGOLESE) documented in this encounter Medications at Time [...] Xiomara Brower RN - 07/02/2016 9:36 AM STRUCTURAL BIOLOGIST LACE 12 PCP: Dr. Ebony Sharp ([facility] Outpatient vp care management to schedule f/u appointment per protocol Xiomara Brower RN BSN Consumer Attorney [phone] CTURAL BIOLOGIST * Zo Juan LMSW - 07/01/2016 11:07 AM STRUCTURAL BIOLOGIST Pt was alert, oriented and agreeable to completing initial assessment and discha rge planning. PCP, pharm and Rx has been confirmed. Pt stated she has an AD, ирина ntified daughter as her customer counter representative ( SW requested copy of document). Pt is c urrently admitted with COPD exacerbation and SOA.Pt reported she is independent, disabled and resides with daughter and son in law in their home. Pt has a cane, walker and wheelchair to assist with ambulation and utilizes 3L of Oxygen at [facility] ( provider is [facility]). Pt reported she also has a C-PCP provided by Marsha wilkerson. Pt has declined additional resources or assistance with living/medical ex penses at this time. Pt stated she utilized HH 4 yrs ago with 2 knee replacement s, denies SNF hx. Pt will return home self care at this time. SW will remain amaury ilable to assist with DC needs. Zo Luna THAW SHED HEATER TENDER,MEASUREMENT AND SENSING TECHNICIAN [phone] CTURAL BIOLOGIST * Xiomara Mayen RN FISHERIES MANAGER - 07/01/2016 6:37 AM STRUCTURAL BIOLOGIST [facility] SERVER SUPPORT TECHNICIAN Hospitalist - Progress Note Subjective Chief Complaint: [...] evidence of pulmonary thromboembolic disease. READING SITE: [facility] ATTESTATION STATEMENT: The Staff Radiologist [...] characterization when patient condition permits. READING SITE: [facility] Echocardiogram Studies: Available studies in the [...] mL Intravenous Continuous PRN Xiomara Mayen RN FISHERIES MANAGER [place] Hospital[facility] Please page through physician paging. . CTURAL BIOLOGIST * Xiomara Mayen RN FISHERIES MANAGER - 06/30/2016 7:13 AM STRUCTURAL BIOLOGIST [facility] SERVER SUPPORT TECHNICIAN Hospitalist - Progress Note Subjective Chief Complaint: [...] Result Gram stain indicates specimen is not customer counter representative of lower respiratory tract secretions. Culture not performed. Please consult Microbiology if clinical considerations warrant complete processing of this specimen. Specimen will be held 5 days. Culture Result If further workup of this specimen is warranted please phone [phone] ([phone]) Comprehensive Metabolic Panel Collection Time: 06/29/16 4:33 [...] characterization when patient condition permits. READING SITE: [facility] Echocardiogram Studies: Available studies in the [...] 20 mEq Intravenous PRN Xiomara Mayen RN FISHERIES MANAGER [place] [facility] Please page through physician paging. . CTURAL BIOLOGIST Associated attestation - Katja Guzman DO - 06/30/2016 2:16 PM STRUCTURAL BIOLOGIST [facility] SERVER SUPPORT TECHNICIAN Hospitalist - History & Physical I personally [...] chart including vital signs, labs, imag ing, cosmetic consultant notes (if applicable), outside medical records [...] VTE Prevention: Heparin subcutaneous Katja Guzman DO [place] [facility] Please page through physician paging. . * Rodney Qi Keri, TOP INVENTORY CONTROL EXECUTIVE - 06/30/2016 12:13 AM STRUCTURAL BIOLOGIST Respiratory Care Services Initial Consultation Note Name: Isiah Benítez CPI: [id number] Isiah Benítez was evaluated per RATE Consultation [...] and Oxygen Therapy Discharge Considerations Not Applicable CTURAL BIOLOGIST documented in this encounter H&P Notes * Walker Stout MD - 06/29/2016 5:51 PM STRUCTURAL BIOLOGIST [facility] SERVER SUPPORT TECHNICIAN Hospitalist - History & Physical Patient Name: [...] mcg/actuation INHALER Inhale 1 puff daily. FLUVIRIN [id number] 45 mcg (15 mcg x 3)/0.5 mL [...] characterization when patient condition permits. READING SITE: [facility] Assessment/Plan * COPD exacerbation Pt mildly [...] treatment as noted above. Walker Stout MD [place] [facility] Please page through physician paging. . CTURAL BIOLOGIST documented in this encounter ED Notes * Roosevelt Smiley, RN - 06/29/2016 7:52 PM STRUCTURAL BIOLOGIST PT WENT OVER TO CT THEN TO THE FLOOR, PT STABLE WITH TRANSPORT CTURAL BIOLOGIST * Nanci Cunha RN - 06/29/2016 6:43 PM STRUCTURAL BIOLOGIST SPOKE WITH BRIDGET FROM CT. PATIENT HAS TO WAIT 2 HOURS BEFORE CTA CAN BE DONE DUE TO EATING DINNER. BRIDGET REPORTS COMING TO GET PATIENT AT 1930. PATIENT TH EN WILL BE PUT IN FOR TRANSPORT TO GO TO THE FLOOR. RN ON FLOOR IS AWARE OF SITU ATION. CTURAL BIOLOGIST * Nanci Cunha RN - 06/29/2016 6:32 PM STRUCTURAL BIOLOGIST PATIENT DELAYED TO GO UPSTAIRS. STILL NEEDS AC IV FOR CTA. REPORT HAS BEEN GIVEN TO FLOOR RN AND AWARE OF DELAY FOR FLOOR. CTURAL BIOLOGIST * Nanci Cunha RN - 06/29/2016 5:38 PM STRUCTURAL BIOLOGIST MEAL TRAY GIVEN TO PATIENT. HOSPITALIST AT BEDSIDE. FAMILY ALSO BROUGHT FOOD. ALIVIA REED STABLE AT THIS TIME. DIET HAS BEEN ORDERED. PATIENT OK TO EAT. CTURAL BIOLOGIST * Tavon Orellana MD - 06/29/2016 3:34 PM STRUCTURAL BIOLOGIST 06/29/2016 [facility] History Chief Complaint Patient presents with [...] Room air saturation 90%; Patient placed on morning show newscast producer and oxygen EKG interpreted by me shows [...] characterization when patient condition permits. READING SITE: [facility] Results for orders placed or performed [...] 06/29/16 1716 Tavon Orellana MD 06/29/16 1717 CTURAL BIOLOGIST * Nanci Cunha RN - 06/29/2016 3:00 PM STRUCTURAL BIOLOGIST Patient reports using a CPAP at night. This AM cough got worse and was unable to tolerate the CPAP. That was the deciding factor to come to ER. CTURAL BIOLOGIST * Estefany Castellanos RN - 06/29/2016 2:48 PM STRUCTURAL BIOLOGIST Pt states she has had two rounds of PO steroids and antibiotics in the last 6 we eks "and it keeps coming back." Pt placed on 2L O2 per NC in triage. CTURAL BIOLOGIST * Estefany Castellanos RN - 06/29/2016 2:42 PM STRUCTURAL BIOLOGIST c/o SOA x 2 days, states she cannot use her CPAP and breathe. States she thinks she is having a COPD exacerbation, states chest pain has been three days interm ittently. States it is squeezing on the left, non-radiating with diaphoresis, d izziness, nausea. CTURAL BIOLOGIST documented in this encounter Miscellaneous Notes * Therapy Note - Maryam Carrillo, PT - 07/02/2016 11:44 AM STRUCTURAL BIOLOGIST 07/02/16 1144 Visit Info PT Deferred On 07/02/16 Deferred comments Checked with nurse and she reports pt. may discharge to home teresa martins. RN reports pt. has been up in hallway walking ad matt. Checked with pt. and she is feeling much better and states she's been getting up by herself. DC PT CTURAL BIOLOGIST * Plan of Care - Analy Karin K, RN - 07/02/2016 9:41 AM STRUCTURAL BIOLOGIST Problem: Knowledge Deficit Goal: Patient/family/caregiver demonstrates understanding [...] fall during their Inpatient stay Outcome: Progressing CTURAL BIOLOGIST * Plan of Nurys Pierce RN - 07/02/2016 12:52 AM STRUCTURAL BIOLOGIST Problem: Knowledge Deficit Goal: Patient/family/caregiver demonstrates understanding [...] Outcome: Progressing Patient safety precautions in place CTURAL BIOLOGIST * Plan of Karin Prather RN - 07/01/2016 12:17 PM STRUCTURAL BIOLOGIST Problem: Knowledge Deficit Goal: Patient/family/caregiver demonstrates understanding [...] fall during their Inpatient stay Outcome: Progressing CTURAL BIOLOGIST * Plan of Dianna Sabillon RN - 06/30/2016 10:06 PM STRUCTURAL BIOLOGIST Problem: Knowledge Deficit Goal: Patient/family/caregiver demonstrates understanding [...] their Inpatient stay Outcome: Adequate for Discharge CTURAL BIOLOGIST * Plan of Karin Prather RN - 06/30/2016 6:46 PM STRUCTURAL BIOLOGIST Problem: Knowledge Deficit Goal: Patient/family/caregiver demonstrates understanding [...] fall during their Inpatient stay Outcome: Progressing CTURAL BIOLOGIST * Assessment & Plan Note - Xiomara Mayen RN APRN - 06/30/2016 12:38 PM STRUCTURAL BIOLOGIST Associated Problem(s): Tachycardia (Resolved 07/02/2016) Likely multifactorial, receiving breathing treatments, metoprolol held due to co pd exacerbation; Improved with addition of metoprolol; HR now in 90's EKG shows ST --continue metoprolol CTURAL BIOLOGIST * Assessment & Plan Note - Xiomara Mayen RN FISHERIES MANAGER - 06/30/2016 10:48 AM STRUCTURAL BIOLOGIST Associated Problem(s): SASHA on CPAP Recent sleep study (prior to gastric bypass surgery)--started on home c-pap with supplemental oxygen --may use home c-pap equipment nightly CTURAL BIOLOGIST * Therapy Note - Maryam Carrillo, PT - 06/30/2016 10:28 AM STRUCTURAL BIOLOGIST 06/30/16 1028 Visit Info Initial PT Visit [...] CH G-Code determined by: KU Functional Scale CTURAL BIOLOGIST * Assessment & Plan Note - Xiomara Mayen RN FISHERIES MANAGER - 06/30/2016 9:41 AM STRUCTURAL BIOLOGIST Associated Problem(s): Acute on chronic respiratory failure [...] protocol --oxygen, titrate to sats > 92% CTURAL BIOLOGIST * Plan of Care - Xiomara Cullen RN - 06/29/2016 11:44 PM STRUCTURAL BIOLOGIST Problem: Risk for Falls Goal: Patient will not fall during their Inpatient stay Outcome: Progressing Discussed fall risk and reduction of falls CTURAL BIOLOGIST * Plan of Care - Xiomara Cullen RN - 06/29/2016 11:41 PM STRUCTURAL BIOLOGIST Problem: Knowledge Deficit Goal: Patient/family/caregiver demonstrates understanding [...] is adequate Outcome: Progressing Tolerating regular diet CTURAL BIOLOGIST * Assessment & Plan Note - Xiomara Mayen RN FISHERIES MANAGER - 06/29/2016 6:43 PM STRUCTURAL BIOLOGIST Associated Problem(s): Essential hypertension Normotensive --continue metoprolol --continue amlodipine --PRNS CTURAL BIOLOGIST * Assessment & Plan Note - Xiomara Mayen RN FISHERIES MANAGER - 06/29/2016 6:42 PM STRUCTURAL BIOLOGIST Associated Problem(s): Type 2 diabetes mellitus with hyperglycemia, with long-te rm current use of insulin (HCC) suboptimal control, likely due to steroids Lantus increased back to home dose; blood sugars now 200's instead of 300's --increase lantus to 17 --continue correction factor --CC diet CTURAL BIOLOGIST * Assessment & Plan Note - Xiomara Mayen RN FISHERIES MANAGER - 06/29/2016 6:38 PM STRUCTURAL BIOLOGIST Associated Problem(s): COPD exacerbation (HCC) (Resolved 07/02/2016) [...] oxygen to sats > 92% --check procal CTURAL BIOLOGIST documented in this encounter Plan of Treatment Not on filedocumented as of this encounter Procedures Comments Procedure Name Priority Date/Time Associated Diag nosis GLUCOSE POC Routine 07/02/2016 11:07 AM STRUCTURAL BIOLOGIST GLUCOSE POC Routine 07/02/2016 7:18 AM STRUCTURAL BIOLOGIST GLUCOSE POC Routine 07/02/2016 2:29 AM STRUCTURAL BIOLOGIST GLUCOSE POC Routine 07/01/2016 11:52 PM STRUCTURAL BIOLOGIST GLUCOSE POC Routine 07/01/2016 8:45 PM STRUCTURAL BIOLOGIST GLUCOSE POC Routine 07/01/2016 4:53 PM STRUCTURAL BIOLOGIST GLUCOSE POC Routine 07/01/2016 11:53 AM STRUCTURAL BIOLOGIST GLUCOSE POC Routine 07/01/2016 7:39 AM STRUCTURAL BIOLOGIST GLUCOSE POC Routine 06/30/2016 8:23 PM STRUCTURAL BIOLOGIST GLUCOSE POC Routine 06/30/2016 4:27 PM STRUCTURAL BIOLOGIST ECG Routine 06/30/2016 12:15 PM STRUCTURAL BIOLOGIST GLUCOSE POC Routine 06/30/2016 11:37 AM STRUCTURAL BIOLOGIST GLUCOSE POC Routine 06/30/2016 7:47 AM STRUCTURAL BIOLOGIST PROCALCITONIN Add-On 06/30/2016 4:17 AM STRUCTURAL BIOLOGIST COMPLETE BLOOD COUNT Routine 06/30/2016 4:17 AM STRUCTURAL BIOLOGIST BASIC METABOLIC PANEL Routine 06/30/2016 4:17 AM STRUCTURAL BIOLOGIST GLUCOSE POC Routine 06/30/2016 12:56 AM STRUCTURAL BIOLOGIST RESPIRATORY PANEL BY PCR Routine 06/29/2016 9:55 PM STRUCTURAL BIOLOGIST GLUCOSE POC Routine 06/29/2016 8:[address] ANGIO CHEST Routine 06/29/2016 7:52 PM STRUCTURAL BIOLOGIST CULTURE, BLOOD STAT 06/29/2016 6:30 PM STRUCTURAL BIOLOGIST COMPREHENSIVE METABOLIC STAT 06/29/2016 PANEL 4:33 PM STRUCTURAL BIOLOGIST CULTURE, BLOOD STAT 06/29/2016 4:01 PM STRUCTURAL BIOLOGIST CULTURE, SPUTUM WITH GRAM STAT 06/29/2016 STAIN 3:54 PM STRUCTURAL BIOLOGIST XR CHEST SINGLE VIEW STAT 06/29/2016 FRONTAL 3:52 PM STRUCTURAL BIOLOGIST INFLUENZA AB ANTIGEN STAT 06/29/2016 3:48 PM STRUCTURAL BIOLOGIST PULSE OXIMETRY, STAT 06/29/2016 CONTINUOUS 3:31 PM STRUCTURAL BIOLOGIST TROPONIN STAT 06/29/2016 3:00 PM STRUCTURAL BIOLOGIST NTPROBNP STAT 06/29/2016 3:00 PM STRUCTURAL BIOLOGIST MAGNESIUM STAT 06/29/2016 3:00 PM STRUCTURAL BIOLOGIST LACTATE VENOUS WB STAT 06/29/2016 3:00 PM STRUCTURAL BIOLOGIST CBC AND DIFF (MANUAL DIFF STAT 06/29/2016 IF NECESSARY) 3:00 PM STRUCTURAL BIOLOGIST ECG STAT 06/29/2016 2:32 PM STRUCTURAL BIOLOGIST documented in this encounter Results * GLUCOSE POC (07/02/2016 11:07 AM STRUCTURAL BIOLOGIST) Only the most recent of 14 results within the time period is included. Glucose POC 168 (H) 70 - 100 mg/dL [facility] Specimen Performing Organization Address City/State/Zipcode Ph one Number [facility] [address] [facility] [place] [address] [facility] [place]ad[place] Abdi MARB[place]ad[place] [address] [place] [address], [place] [phone] [facility] * Electrocardiogram (ECG) (06/30/2016 12:15 PM STRUCTURAL BIOLOGIST) Only the most recent of 2 results within the time period is included. Specimen Narrative Performed At KARTHIKRONEL Mccray [facility] Test Date: 2016-06-30 Pat Name: ISIAHYOSSI BENÍTEZ Department: [facility] Room: [facility] Gender: Female Telesales Consultant: [id number] : 1950 Requested By: Medigram Order Number: [id number] Reading MD: Zaida Giron Measurements Intervals [place] Rate: 132 P: 49 [place]: 81 QRS: 43 QRSD: 104 T: -18 QT: 324 QTc: 480 Interpretive Statements SINUS TACHYCARDIA BORDERLINE INFERIOR Q WAVES BORDERLINE T ABNORMALITIES, INFERIOR LE ADS Electronically Signed On 07-01-2016 13:0 3:35 STRUCTURAL BIOLOGIST by Zaida Giron Procedure Note Interface, External Ris In - 07/01/2016 1:03 PM STRUCTURAL BIOLOGIST [facility] Test Date: 2016-06-30 Pat Name: [facility] Department: [facility] Room: 5020 Gender: Female Telesales Consultant: [id number] : 1950 Requested By: Medigram Order Number: [id number] Reading MD: Zaida Giron Measurements Intervals [place] Rate: 132 P: 49 [place]: 81 QRS: 43 QRSD: 104 T: -18 QT: 324 QTc: 480 Interpretive Statements SINUS TACHYCARDIA BORDERLINE INFERIOR Q WAVES BORDERLINE T ABNORMALITIES, INFERIOR LEADS Electronically Signed On 07-01-2016 13:03:35 STRUCTURAL BIOLOGIST by Zaida Girno Performing Organization Address City/[facility] Ph one Number [email or web address] * Procalcitonin (06/30/2016 4:17 AM STRUCTURAL BIOLOGIST) Pathologist [facility] Procalcitonin <0.05 0.00 - 0.10 ng/mL [facility] [...] procalcitonin levels. Specimen Blood Performing Organization Address City/[facility] Ph one Number [address] [address] LABORATORIES * Complete Blood Count (06/30/2016 4:17 AM STRUCTURAL BIOLOGIST) WBC 6.26 4.00 - 11.00 TH/uL [facility] RBC 3.84 (L) 4.00 - 5.00 MIL/uL [facility] Hemoglobin 12.3 12.0 - 15.0 g/dL [facility] Hematocrit 38 36 - 45 % [facility]ENTERR[facility] MCV 100 (H) 80 - 99 fL [facility] MCH 32 27 - 34 pg [facility] MCHC 32 32 - 36 % [facility] RDW 13.4 9.0 - 14.5 % [facility]ENTERRo[facility] AnalyticsSOU[facility] Platelet Count 132 (L) 140 - 400 TH/uL [facility] MPV 9.6 9.4 - 12.3 fL [facility] Specimen Blood Performing Organization Address City/State/[facility] Hospital[facility] Ph one Number [facility] [address] [place] [address] [facility] [address] [place] [address], [facility] * Basic Metabolic Panel (06/30/2016 4:17 AM STRUCTURAL BIOLOGIST) [facility] Sodium 141 133 - 147 MEQ/L [facility] [...] 0.7 0.4 - 1.1 mg/dL [facility] eGFR Female AA 101 [...] [place] [address] [facility] [address] [facility] [facility] [address] [address], [place] [phone] [facility] * Respiratory Panel by PCR (06/29/2016 9:55 PM STRUCTURAL BIOLOGIST) Adenovirus Not Detected Not Detected [facility] Coronavirus Not Detected Not Detected [facility] Human Not Detected Not Detected [facility] Metapneumovirus [facility] ([facility] LABORATORIES Human Not Detected Not Detected [facility] Rhinovirus [facility] Enterovirus LABORATORIES Influenza A Not Detected Not Detected [facility] Influenza B Not Detected Not Detected [facility] Parainfluenza Not Detected Not Detected [facility] Virus [facility] Respiratory Not Detected Not Detected [facility] Syncytial Virus [facility] LABORATORIES Bordetella Not Detected Not Detected [facility] pertussis [facility] Chlamydophila Not Detected Not Detected [facility] pneumoniae [facility] Mycoplasma Not Detected Not Detected [facility] pneumoniae [facility] Source NASOPHAR [facility] Specimen Nasopharynx, Performing Organization Address City/State/Zipcode Ph one Number [facility] [address] [place] [phone] LABORATORIES * CT Angio Chest (06/29/2016 7:52 PM STRUCTURAL BIOLOGIST) Specimen Impressions Performed At No evidence of pulmonary thromboembolic disease. [facility] READING SITE: [facility] ATTESTATION STATEMENT: The Staff Radiologist has personally re viewed this study and agrees with the findings in this report. The Staff Radiologist has personally re viewed the images and dictated, reviewed, or edited the final report. Narrative Performed At Patient: ISIAH BENÍTEZ Sex#: F # [id number] Jose#: [id number] Location: [facility] Procedure Requested: [id number] CT ANGIO CHEST Reason for Exam: shortness [...] Rad Results In - 06/30/2016 8:55 AM STRUCTURAL BIOLOGIST Patient: ISIAH BENÍTEZ Sex#: F # [id number] Jose#: [id number] Location: [facility] Procedure Requested: [id number] CT ANGIO CHEST Reason for Exam: shortness [...] evidence of pulmonary thromboembolic disease. READING SITE: [facility] ATTESTATION STATEMENT: The Staff Radiologist has personally reviewed this study and agrees with the findings in this report. The Staff Radiologist has personally reviewed the images and dictated, reviewed, or edited the final report. Performing Organization Address [facility] one Number LEVI * Culture, Blood (Separate sites 15 minutes apart) (06/29/2016 6:30 PM STRUCTURAL BIOLOGIST) Only the most recent of 2 results within the time period is included. [facility] Culture Result No Growth at 5 days [facility]IES Specimen Blood Performing Organization Address [facility] one Number [address] [address] LABORATORIES * Comprehensive Metabolic Panel (06/29/2016 4:33 PM STRUCTURAL BIOLOGIST) [facility] Sodium 143 133 - 147 MEQ/L [facility] Potassium 3.7 3.5 - 5.3 MEQ/L [facility] Chloride 104 96 - 112 MEQ/L [facility] Carbon Dioxide 30 20 - 32 MEQ/L [facility] Anion Gap 9 5 - 17 [facility] Calcium 8.5 8.4 - 10.5 mg/dL [facility] Glucose 123 (H) 70 - 100 mg/dL [facility] [facility] Protein Total 6.8 6.0 - 8.2 g/dL [facility] Serum [facility] Albumin 3.7 3.5 - 5.0 g/dL [...] wit h accession number [facility] Abdi [id number]. [facility] Performing Organization Address City/State/Zipcode Ph one Number [facility] [address] [facility] [place] [address] [facility] [address] [facility] [place] [address], [facility] * Culture, Sputum with Gram Stain (06/29/2016 3:54 PM STRUCTURAL BIOLOGIST) Culture Result Gram stain indicates specimen [facility] LUNDY is not customer counter representative of AL[facility] SWANSON lower respiratory tract [facility] secretions. Culture not performed. Please consult Microbiology if clinical considerations warrant complete processing of this specimen. Specimen will be held 5 days. Culture Result If further workup of this [facility] Mccray specimen is warranted please [facility] SWANSON phone [facility] [phone]) Specimen Sputum Performing Organization Address City/State/Zipcode Ph one Number [facility] [address] [place] [address] [facility] [address] [place] [address], [place] [phone] [facility] * XR Chest single view frontal (06/29/2016 3:52 PM STRUCTURAL BIOLOGIST) Specimen Impressions Performed At Left basal opacity with partial obscuration of the le raeann SIMS hemidiaphragm could reflect atelectasis . Infection not excluded. Consider PA and lateral chest radiograp hs for further characterization when patient condition permits. READING SITE: [facility] Narrative Performed At Patient: ISIAH BENÍTEZ Sex#: Paulina # [id number] Jose#: [id number] Location: [facility] ED SED- Procedure Requested: [id number] XR CHEST SINGLE VIEW FRONTAL Reason for [...] Rad Results In - 06/29/2016 4:18 PM STRUCTURAL BIOLOGIST Patient: ISIAH BENÍTEZ Sex#: F # [id number] Jose#: [id number] Location: [facility] ED SED- Procedure Requested: [id number] XR CHEST SINGLE VIEW FRONTAL Reason for [...] characterization when patient condition permits. READING SITE: [facility] Performing Organization Address [facility] one Number LEVI * Influenza AB Antigen (06/29/2016 3:48 PM STRUCTURAL BIOLOGIST) Pathologist [facility] [place] Influenza A Negative Negative [facility] Antigen [...] be ordered. Specimen Nasopharynx, Performing Organization Address [facility] one Number [facility] [address] [facility] [place] [address] [facility] AGUSTINS [address] [facility] [place] [address], [place] [phone] [facility] * Magnesium (06/29/2016 3:00 PM STRUCTURAL BIOLOGIST) Pathologist [facility] [place] Magnesium 2.0 1.4 - 2.7 mg/dL [facility] Specimen Blood Performing Organization Address [facility] one Number [facility] AGUSTINS [address] [facility] [place] [address] [facility] AGUSTINS [address] [place] [address], [place] [phone] [facility] * Lactate Venous WB - Use GREEN tube (06/29/2016 3:00 PM STRUCTURAL BIOLOGIST) Lactate Venous 1.9 0.0 - 2.0 mmol/L [facility] Specimen Blood Performing Organization Address [facility] one Number [facility] SWANSON [address] [facility] [place] [address] [facility] [address] [facility] [place] [address], [place] [phone] [facility] * NTproBNP (06/29/2016 3:00 PM STRUCTURAL BIOLOGIST) NTproBNP 111 pg/mL [facility] Comment: [facility] SWAN[facility] NT-proBNP Reference Ranges: [facility] <50 yr <450 pg/mL 50-75 yr <900 pg/mL >75 yr <1800 pg/mL A cutoff value of 1200 pg/mL is recommended in patients 50 to 70 years of age with a GFR between 30 and 60. NT-proBNP is unreliable in patients with GFR <30. Specimen Blood Performing Organization Address [facility] one Number [facility] [address] [facility] [place] [address] [facility] [address] [facility] [place] [address], [place] [phone] [facility] * Troponin (06/29/2016 3:00 PM STRUCTURAL BIOLOGIST) Troponin <0.01 0.00 - 0.03 ng/mL [facility] Comment: ALBERT AGUSTINS Troponin Value [facility] Interpretation 0.00 - 0.03 Healthy 0.04 - 0.12 Increased Cardiac Risk >0.12 Myocardial Infarction Troponin may not become elevated until 6 to 8 hours after onset of symptoms. Specimen Blood Performing Organization Address [facility] one Number [facility] SW[facility] [address] [facility] [place] [address] [facility] AGUSTINS [address] [place] [address], [place] [phone] [facility] * CBC and Diff (manual diff if necessary) (06/29/2016 3:00 PM STRUCTURAL BIOLOGIST) [facility] Signature WBC 6.88 4.00 - 11.00 TH/uL [facility] AL[facility]ERT MARBINS [facility] RBC 3.83 (L) 4.00 - 5.00 MIL/uL [facility] AL[facility]ERT MARBINS [facility] Hemoglobin 12.4 12.0 - 15.0 g/dL [facility] Hematocrit 38 36 - 45 % [facility] MCV 99 80 - 99 fL [facility] ALBERT MARBINS [facility] MCH 32 27 - 34 pg [facility] ALBERT MARBIN'S [facility] MCHC 33 32 - 36 % [facility] AL[facility]ERT MARBIN[facility] RDW 13.2 9.0 - 14.5 % [facility] Platelet Count 148 140 - 400 TH/uL [facility] ALBERT MARBIN'S [facility] MPV 10.2 9.4 - 12.3 fL [facility] % Neutrophils 51 45 - 78 % [facility] %Lymphocytes 36 15 - 47 % [facility] %Monocytes 9 0 - 12 % [facility] %Eosinophils 4 0 - 7 % [facility] %Basophils 0 0 - 2 % [facility] # Granulocytes 3.51 1.7 - 6.8 TH/uL [facility] # Lymphocytes 2.45 1.0 - 3.3 TH/uL [facility] # Monocytes 0.62 0.2 - 0.9 TH/uL [facility] # Eosinophils 0.28 0.0 - 0.4 TH/uL [facility] # Basophils 0.02 0.0 - 0.1 TH/uL [facility] Specimen Blood Performing Organization Address City/State/Zipcode Ph one Number [facility] [address] [facility] [place] [address] [facility] [address] [facility] [place] [address], [facility] documented in this encounter Visit [...] not exceed 2 GM/DAY., 07/01/2016 8:04 PM STRUCTURAL BIOLOGIST 25 mg amitriptyline (ELAVIL) tablet 25 mg Given 25 mg, Oral, Nightly, First dose on 06/29/16 at 2100 25 mg Given 06/30/2016 7:48 PM STRUCTURAL BIOLOGIST 25 mg Given 06/29/2016 9:46 PM STRUCTURAL BIOLOGIST 07/02/2016 8:19 AM STRUCTURAL BIOLOGIST 5 mg amLODIPine (NORVASC) tablet 5 mg Given 5 mg, Oral, Daily, First dose on Wed06/29/16 at 2030 5 mg Given 07/01/2016 8:02 AM STRUCTURAL BIOLOGIST 5 mg Given 06/30/2016 8:28 AM STRUCTURAL BIOLOGIST 07/02/2016 8:19 AM STRUCTURAL BIOLOGIST 20 mg citalopram (CeleXA) tablet 20 mg Given 20 mg, Oral, Daily, First dose on Wed06/29/16 at 2030 20 mg Given 07/01/2016 8:02 AM STRUCTURAL BIOLOGIST 20 mg Given 06/30/2016 8:28 AM STRUCTURAL BIOLOGIST 07/02/2016 3:18 PM STRUCTURAL BIOLOGIST 5 mL codeine-guaifenesin (GUAIFENESIN AC) Given 10-100 mg/5 mL liquid 5 mL 5 mL, Oral, Every 4 hours PRN, cough, Starting Wed06/30/16 at 1153 5 mL Given 07/02/2016 10:10 AM STRUCTURAL BIOLOGIST 5 mL Given 07/02/2016 6:07 AM STRUCTURAL BIOLOGIST 06/29/2016 3:41 PM STRUCTURAL BIOLOGIST 25 mcg fentaNYL (SUBLIMAZE) 50 mcg/mL injection Given 25 mcg 25 mcg, Intravenous, Once, Wed06/29/16 at 1533, For 1 dose, Administer over 2 minutes; max dose for IVP is 2 mcg/kg. Note: Limit does not apply to patients who may be tolerant to opioid therapy o r on continuous IV or PO opiate therapy., 06/29/2016 5:23 PM STRUCTURAL BIOLOGIST 25 mcg fentaNYL (SUBLIMAZE) 50 mcg/mL injection Given 25 mcg 25 mcg, Intravenous, Once, Wed06/29/16 at 1702, For 1 dose, Administer over 2 minutes; max dose for IVP is 2 mcg/kg. Note: Limit does not apply to patients who may be tolerant to opioid therapy o r on continuous IV or PO opiate therapy., 07/02/2016 6:08 AM STRUCTURAL BIOLOGIST 50 mcg fentaNYL (SUBLIMAZE) 50 mcg/mL injection [...] therapy., 50 mcg Given 07/02/2016 2:19 AM STRUCTURAL BIOLOGIST 50 mcg Given 07/01/2016 9:08 PM STRUCTURAL BIOLOGIST 07/02/2016 7:21 AM STRUCTURAL BIOLOGIST 1 puff fluticasone-vilanterol (BREO ELLIPTA) Given 100-25 mcg/actuation inhaler 1 puff 1 puff, Inhalation, Daily, First dose o n 06/30/16 at 0900, Rinse mouth with water after use if patient not on vent. , 1 puff Given 07/01/2016 7:18 AM STRUCTURAL BIOLOGIST 1 puff Given 06/30/2016 7:15 AM STRUCTURAL BIOLOGIST fluticasone-vilanterol (BREO ELLIPTA) 100-25 mcg/actuation inhaler 1 puff 1 puff, Inhalation, Daily, First dose (after last modification) on Wed07/03/16 at 0800, Rinse mouth with wate r after use if patient not on vent. , 07/02/2016 8:19 AM STRUCTURAL BIOLOGIST 300 mg gabapentin (NEURONTIN) capsule 300 mg Given 300 mg, Oral, 3 times daily, First dose on Wed06/29/16 at 2100 300 mg Given 07/01/2016 8:04 PM STRUCTURAL BIOLOGIST 300 mg Given 07/01/2016 3:24 PM STRUCTURAL BIOLOGIST glucagon (GLUCAGEN) injection 1 mg 1 mg, [...] patient o n side., 07/02/2016 6:07 AM STRUCTURAL BIOLOGIST 5,000 Units Abdomina l Tissue heparin (porcine) 5,000 unit/mL Given injection 5,000 Units 5,000 Units, Subcutaneous, Every 8 hours, First dose on Wed06/29/16 at 220 0 5,000 Units Abdominal Tissue Given 07/01/2016 9:08 PM STRUCTURAL BIOLOGIST 5,000 Units Abdominal Tissue Given 07/01/2016 1:11 PM STRUCTURAL BIOLOGIST 07/02/2016 1:28 AM STRUCTURAL BIOLOGIST 1 tablet HYDROcodone-acetaminophen (NORCO) 5-325 Given mg per tablet 1 tablet 1 tablet, Oral, Every 6 hours PRN, mild pain (pain score 1-3), moderate pain (pain score 4-6), Starting Wed06/29/16 at 2007, Do not exceed 4 GM/DAY of acetaminophen. If 65 or older do not exceed 3 GM/DAY. If chronic alcoholic d o not exceed 2 GM/DAY., 1 tablet Given 07/01/2016 8:04 PM STRUCTURAL BIOLOGIST 1 tablet Given 07/01/2016 3:24 PM STRUCTURAL BIOLOGIST 07/02/2016 3:18 PM STRUCTURAL BIOLOGIST 1 tablet HYDROcodone-acetaminophen (NORCO) 5-325 Given mg per tablet 1 tablet 1 tablet, Oral, Every 4 hours PRN, mild pain (pain score 1-3), moderate pain (pain score 4-6), Starting [facility] 07/02/16 at 0945, Do not exceed 4 GM/DAY of acetaminophen. If 65 or older do not exceed 3 GM/DAY. If chronic alcoholic d o not exceed 2 GM/DAY., 1 tablet Given 07/02/2016 10:11 AM STRUCTURAL BIOLOGIST 06/29/2016 9:45 PM STRUCTURAL BIOLOGIST 10 Units Abdomina l Tissue insulin glargine (LANTUS) injection 10 Given Units 10 Units, Subcutaneous, Nightly, First dose on Wed06/29/16 at 209906/30/2016 9:30 PM STRUCTURAL BIOLOGIST 15 Units Left Arm insulin glargine (LANTUS) injection 15 Given Units 15 Units, Subcutaneous, Nightly, First dose (after last modification) on Wed06/30/16 at 209907/01/2016 9:08 PM STRUCTURAL BIOLOGIST 17 Units Abdomina l Tissue insulin glargine (LANTUS) injection 17 Given Units 17 Units, Subcutaneous, Nightly, First dose (after last modification) on Wed07/01/16 at 209907/02/2016 12:06 PM STRUCTURAL BIOLOGIST 2 Units Right Ar m insulin lispro [...] Units Abdominal Tissue Given 07/01/2016 9:08 PM STRUCTURAL BIOLOGIST 8 Units Right Arm Given 07/01/2016 5:25 PM STRUCTURAL BIOLOGIST 06/29/2016 7:52 PM STRUCTURAL BIOLOGIST 78 mL iohexol (OMNIPAQUE) 350 mg iodine/mL Given injection 78 mL 78 mL, Intravenous, Once in imaging, contrast, Starting Wed06/29/16 at 1952, For 1 dose 06/29/2016 4:33 PM STRUCTURAL BIOLOGIST 3 mL ipratropium-albuterol (DUO-NEB) 0.5-3 Given mg/3 mL nebulizer solution 3 mL 3 mL, Inhalation, Once, Wed06/29/16 at 1533, For 1 dose 07/02/2016 7:20 AM STRUCTURAL BIOLOGIST 3 mL ipratropium-albuterol (DUO-NEB) 0.5-3 Given mg/3 mL nebulizer solution 3 mL 3 mL, Inhalation, 4 times daily, First dose on Wed06/29/16 at 2100 3 mL Given 07/01/2016 8:53 PM STRUCTURAL BIOLOGIST 3 mL Given 07/01/2016 2:54 PM STRUCTURAL BIOLOGIST 07/02/2016 11:00 AM STRUCTURAL BIOLOGIST 3 mL ipratropium-albuterol (DUO-NEB) 0.5-3 Given mg/3 mL nebulizer solution 3 mL 3 mL, Inhalation, 4 times daily, First dose (after last modification) on Ju 07/02/16 at 1200 06/29/2016 5:26 PM STRUCTURAL BIOLOGIST 500 mg 100 mL/hr levofloxacin (LEVAQUIN) IVPB 500 mg New Bag (premix) 500 mg, Intravenous, at 100 mL/hr, Once , Indications: COPD, Wed06/29/16 at 1718, For 1 dose 07/02/2016 9:51 AM STRUCTURAL BIOLOGIST 500 mg 100 mL/hr levofloxacin (LEVAQUIN) IVPB 500 mg New Bag (premix) 500 mg, Intravenous, at 100 mL/hr, Daily, Indications: COPD, First dose on Wed06/30/16 at 1000 500 mg 100 mL/hr New Bag 07/01/2016 10:18 AM STRUCTURAL BIOLOGIST 500 mg 100 mL/hr New Bag 06/30/2016 9:45 AM STRUCTURAL BIOLOGIST 06/30/2016 8:28 AM STRUCTURAL BIOLOGIST 40 mg methylPREDNISolone sod suc(PF) Given (Solu-MEDROL) 40 mg/mL injection 40 mg 40 mg, Intravenous, Every 8 hours scheduled, First dose on Wed06/29/16 at 2030 40 mg Given 06/30/2016 1:05 AM STRUCTURAL BIOLOGIST 40 mg Given 06/29/2016 9:46 PM STRUCTURAL BIOLOGIST 07/02/2016 8:19 AM STRUCTURAL BIOLOGIST 100 mg metoprolol tartrate (LOPRESSOR) tablet Given 100 mg 100 mg, Oral, 2 times daily, First dose on Wed06/30/16 at 1245 100 mg Given 07/01/2016 8:04 PM STRUCTURAL BIOLOGIST 100 mg Given 07/01/2016 8:02 AM STRUCTURAL BIOLOGIST 06/29/2016 3:41 PM STRUCTURAL BIOLOGIST 4 mg ondansetron (ZOFRAN) 4 mg/2 mL injection Given 4 mg 4 mg, Intravenous, Once, Wed06/29/16 at 1533, For 1 dose 06/29/2016 5:23 PM STRUCTURAL BIOLOGIST 4 mg ondansetron (ZOFRAN) 4 mg/2 mL injection Given 4 mg 4 mg, Intravenous, Once, Wed06/29/16 at 1702, For 1 dose 07/02/2016 6:08 AM STRUCTURAL BIOLOGIST 40 mg pantoprazole (PROTONIX) EC tablet 40 mg Given 40 mg, Oral, Every morning before breakfast, First dose on Wed06/30/16 at 0730, DO NOT CRUSH OR CHEW., 40 mg Given 07/01/2016 8:02 AM STRUCTURAL BIOLOGIST 40 mg Given 06/30/2016 8:28 AM STRUCTURAL BIOLOGIST 07/02/2016 6:24 AM STRUCTURAL BIOLOGIST 17 g polyethylene glycol (GLYCOLAX) packet 17 Given g 17 g, Oral, Daily PRN, constipation, constipation, Starting Wed06/29/16 at 2007, Mix in 4-8 ounces of liquid. Hold these medications if patient has had loose stool or diarrhea within previous 24 hours., 07/01/2016 8:05 PM STRUCTURAL BIOLOGIST 40 mg pravastatin (PRAVACHOL) tablet 40 mg Given 40 mg, Oral, Nightly, First dose on Wed06/29/16 at 2100 40 mg Given 06/30/2016 7:48 PM STRUCTURAL BIOLOGIST 40 mg Given 06/29/2016 9:46 PM STRUCTURAL BIOLOGIST 07/02/2016 8:19 AM STRUCTURAL BIOLOGIST 40 mg predniSONE (DELTASONE) tablet 40 mg Given 40 mg, Oral, Daily, First dose on Wed06/30/16 at 0900, Give with food to reduce GI upset, 40 mg Given 07/01/2016 8:02 AM STRUCTURAL BIOLOGIST 40 mg Given 06/30/2016 8:29 AM STRUCTURAL BIOLOGIST 07/02/2016 8:18 AM STRUCTURAL BIOLOGIST 1 tablet senna-docusate (PERICOLACE) 8.6-50 mg 1 Given tablet 1 tablet, Oral, 2 times daily, First dose on Wed07/01/16 at 0900 1 tablet Given 07/01/2016 8:04 PM STRUCTURAL BIOLOGIST 1 tablet Given 07/01/2016 9:00 AM STRUCTURAL BIOLOGIST 07/02/2016 9:50 AM STRUCTURAL BIOLOGIST 25 mL 100 mL/hr sodium chloride 0.9% [...] 100 mL/hr New Bag 06/30/2016 9:44 AM STRUCTURAL BIOLOGIST documented in this encounter
--- OUTSIDE RECORDS SUMMARY | 2020-03-16 14:11 | XMS REPORT | Encounter Summary ---
Author Author [facility] Organization [facility] Address Unknown Phone Unavailable Care Team Providers Care Machine Preservative Filler Name Role Phone Ebony Sharp MD PCP Reason for Visit * Reason Comments Sleep Apnea Encounter Details Care Team Description Date Type Department Medardo Radford MD [address] [facility] [address] [place] [address] [phone] SASHA (obstructive sleep apnea) (Primary D x); Goldberg-Ekbom syndrome; Parasomnia 06/26/2016 Office Visit [facility] [address] [facility] [address] [place] [address] Social History Date Tobacco Use Types Packs/Day [...] record. Caren was accompanied by her daughter, Mdady, who assisted with the history. INTERVAL HISTORY: [...] Please excuse any typographic or grammatical errors. [facility] Neurologist Attestation: I have personally interviewed and examined the patient. The note as edited yamile beard is my own. . Pager: . Compliance data was reviewed and shows 4 [...] i s my own. . Pager: . NICAL MAINTENANCE SPECIALIST documented in this encounter Plan of Treatment Not on filedocumented as of this encounter Visit Diagnoses Diagnosis SASHA (obstructive sleep apnea) Obstructive sleep apnea (adult) (pediat amita) Goldberg-Ekbom syndrome Parasomnia Other dysfunctions of sleep stages or a rousal from sleep documented in this encounter
--- OUTSIDE RECORDS SUMMARY | 2020-03-16 14:11 | XMS REPORT | Encounter Summary ---
Author Author [facility] Organization [facility] Address Unknown Phone Unavailable Care Team Providers Care Slitter Cut Off Operator Name Role Phone Ebony Sharp MD PCP Encounter Details Care Team Description Date Type Department Ebony Sharp MD [address] [facility] [address] [place], [place] [address] 07/07/2016 Documentation [facility] y [facility] [address] [place] [address] Social History Date Tobacco Use [...]
--- OUTSIDE RECORDS SUMMARY | 2020-03-16 14:11 | XMS REPORT | Encounter Summary ---
Author Author [facility] Organization [facility] Address Unknown Phone Unavailable Care Team Providers Care Creping Machine Operator Helper Name Role Phone Ebony Sharp MD PCP Reason for Visit * Reason Comments Other Encounter Details Care Team Description Date Type Department Ebnoy Sharp MD [address] [facility] [address] [place] [address] Other 06/20/2016 Refill [facility] y [facility] [address] [facility] [address] [place], [place] [address] Social History Date Tobacco Use Types Packs/Day [...]
--- OUTSIDE RECORDS SUMMARY | 2020-03-16 14:11 | XMS REPORT | Encounter Summary ---
Author Author [facility] Organization [facility] Address Unknown Phone Unavailable Care Team Providers Care Media Supervisor Name Role Phone Ebony Sharp MD PCP Reason for Visit * Reason Comments Other Encounter Details Care Team Description Date Type Department Ebony Sharp MD [address] [facility] [address] [place] [address] Other 07/16/2016 Refill [facility] y [facility] [address] [facility] [address] [place], [place] [id number] Social History Date Tobacco Use Types Packs/Day [...]
--- OUTSIDE RECORDS SUMMARY | 2020-03-16 14:11 | XMS REPORT | Encounter Summary ---
Author Author [facility] Organization [facility] Address Unknown Phone Unavailable Care Team Providers Care Clerk Checker Name Role Phone Ebony Sharp MD PCP Encounter Details Care Team Description Date Type Department Medardo Radford MD [address] [facility] [address] [place] [address] [phone] 07/06/2016 Telephone [facility] [address] [facility] [address] [place] [address] Social History Date Tobacco Use Types Packs/Day [...] Eleni Jauregui MA - 07/06/2016 11:50 AM FORM MAKER Patient called stating we were supposed to fax a sleep study and CPAP compliance data to the bariatric center for her clearance for surgery. She said they never received it and asked us to refax it. I called her back and told her I would re fax them. Pt understood. MAKER documented in this encounter Plan of Treatment Not on filedocumented as of this encounter Visit Diagnoses Not on filedocumented in this encounter
--- OUTSIDE RECORDS SUMMARY | 2020-03-16 14:11 | XMS REPORT | Encounter Summary ---
Author Author [facility] Organization [facility] Address Unknown Phone Unavailable Care Team Providers Care Mammographer Name Role Phone Ebony Sharp MD PCP Reason for Visit * Reason Comments Follow-up Encounter Details Care Team Description Date Type Department Medardo Radford MD [address] [facility] [address] [place] [address] [phone] SASHA (obstructive sleep apnea) (Primary D x); Goldberg-Ekbom syndrome; Parasomnia; Morbid obesity due to excess calories (HCC) 07/10/2016 Office Visit [facility] [address] [facility] [address] [place] [address] Social History Date Tobacco Use Types Packs/Day [...] Comments Vital Sign 154/82 07/10/2016 1:08 PM PROSTHODONTIST Blood Pressure 83 07/10/2016 1:08 PM PROSTHODONTIST Pulse - - Temperature 18 07/10/2016 1:08 PM PROSTHODONTIST Respiratory Rate 95% 07/10/2016 1:08 PM PROSTHODONTIST Oxygen Saturation - - Inhaled Oxygen Concentration 108.4 kg (239 lb) 07/10/2016 1:08 PM PROSTHODONTIST Weight 157.5 cm (5' 2") 07/10/2016 1:08 PM PROSTHODONTIST Height 43.71 07/10/2016 1:08 PM PROSTHODONTIST Body Mass Index documented in this encounter Progress Notes * Medardo Radford MD - 07/10/2016 1:20 PM PROSTHODONTIST OUTPATIENT SLEEP FOLLOW UP NOTE DATE: 07/10/2016 [...] Patient is encouraged to contact the [facility] regarding any additional concerns or questions. More [...] beard is my own. . Pager: . THODONTIST documented in this encounter Plan of Treatment Not on filedocumented as of this encounter Visit Diagnoses Diagnosis SASHA (obstructive sleep apnea) Obstructive sleep apnea (adult) (pediat amita) Goldberg-Ekbom syndrome Parasomnia Other dysfunctions of sleep stages or a rousal from sleep Morbid obesity due to excess calories ( HCC) documented in this encounter
--- OUTSIDE RECORDS SUMMARY | 2020-03-16 14:11 | XMS REPORT | Encounter Summary ---
Author Author [facility] Organization [facility] Address Unknown Phone Unavailable Care Team Providers Care Laborer Petroleum Refinery Name Role Phone Ebony Sharp MD PCP Reason for Visit * Reason Comments Hospital Follow-up TCM CALL Encounter Details Care Team Description Date Type Department Zee Perez RN Hospital Follow-up (TCM CALL ) 07/03/2016 Telephone [facility] [address] [facility] [address] [place], [place] [id number] Social History Date Tobacco Use Types Packs/Day [...] Zee Perez RN - 07/03/2016 8:55 AM MORTAR MIXER [facility] HOSPITAL FOLLOW UP / TRANSITIONAL CARE [...] GIVEN: Left message 07/03/16, 07/06/16 ADDITIONAL NOTES: [facility] CASINO CONTROLLER: Zee Perez RN AR MIXER documented in this encounter Plan of Treatment Not on filedocumented as of this encounter Visit Diagnoses Not on filedocumented in this encounter
--- OUTSIDE RECORDS SUMMARY | 2020-03-16 14:12 | XMS REPORT | Encounter Summary ---
Author Author [facility] Organization [facility] Address Unknown Phone Unavailable Care Team Providers Care Harbor Police Launch Commander Name Role Phone Ebony Sharp MD PCP Encounter Details Care Team Description Date Type Department Ebony Sharp MD [address] [place], [place] [id number] 05/11/2016 Documentation [facility] y [facility] [address] [place] [address] Social History Date Tobacco Use [...]
--- OUTSIDE RECORDS SUMMARY | 2020-03-16 14:12 | XMS REPORT | Encounter Summary ---
Author Author [facility] Organization [facility] Address Unknown Phone Unavailable Care Team Providers Care Human Factors Ergonomist Name Role Phone Ebony Sharp MD PCP Encounter Details Care Team Description Date Type Department Ebony Sharp MD [address] [facility] [address] [place], [place] [id number] 06/03/2016 Documentation [facility] y [facility] [address] [facility] [address] [place] [address] Social History Date Tobacco Use [...]
--- OUTSIDE RECORDS SUMMARY | 2020-03-16 14:12 | XMS REPORT | Encounter Summary ---
Author Author [facility] Organization [facility] Address Unknown Phone Unavailable Care Team Providers Care Mechanical Press Operator Name Role Phone Ebony Sharp MD PCP Encounter Details Care Team Description Date Type Department Ebony Sharp MD [address] [facility] [address] [place], [place] [id number] 06/03/2016 Documentation [facility] [place] [address] [facility] [address] [place] [address] Social History Date Tobacco Use [...]
--- OUTSIDE RECORDS SUMMARY | 2020-03-16 14:12 | XMS REPORT | Encounter Summary ---
Author Author [facility] Organization [facility] Address Unknown Phone Unavailable Care Team Providers Care Aerologist Name Role Phone Ebony Sharp MD PCP Reason for Visit * Reason Comments Follow-up TIM lt ankle [id number] cmlT VX: Appt. Reminder (05/22/2016 06:51 PM) Phone Call - Message Delivered (X=Answering [place]) Encounter Details Care Team Description Date Type Department Adelaida Olivas MD [address] [facility] [address] [place] [address] [phone] 05/26/2016 Hist-Appointmen Aide Orthopaedi c t Specialists [address] [facility] [address] [place] [address] Social History Date Tobacco Use Types Packs/Day [...]
--- OUTSIDE RECORDS SUMMARY | 2020-03-16 14:12 | XMS REPORT | Encounter Summary ---
Author Author [facility] Organization [facility] Address Unknown Phone Unavailable Care Team Providers Care Copy Coordinator Name Role Phone Ebony Sharp MD PCP Encounter Details Care Team Description Date Type Department Alex Bautista, KADEN [address] [place] [address] [phone] Dysuria 05/22/2016 Lab [facility] [place] [address] [facility] [address] [place] [address] Social History Date Tobacco Use Types Packs/Day [...] AM CDT) Isolate 1 >100,000 Cfu/ml (A) [facility] Isolate 1 Escherichia coli (A) [facility] Specimen Urine Antibiotic Method Susceptibility Organism AMPICILLIN 4: Sensitive Escherichia coli CEFAZOLIN. <=4: Sensitive Escherichia coli CEFTRIAXONE <=1: Sensitive Escherichia coli CEFEPIME <=1: Sensitive Escherichia coli MEROPENEM <=0.25: Sensitive Escherichia coli GENTAMICIN <=1: Sensitive Escherichia coli CIPROFLOXACIN. <=0.25: Sensitive Escherichia coli NITROFURANTOIN <=16: Sensitive Escherichia coli SEPTRA/BACTRIM <=20: Sensitive Escherichia coli Performing Organization Address City/State[facility] Ph one Number [address] [address] LABORATORIES documented in this encounter Visit Diagnoses Diagnosis Dysuria documented in this encounter
--- OUTSIDE RECORDS SUMMARY | 2020-03-16 14:12 | XMS REPORT | Encounter Summary ---
Author Author [facility] Organization [facility] Address Unknown Phone Unavailable Care Team Providers Care Assembler Steam And Gas Turbine Name Role Phone Ebony Sharp MD PCP Encounter Details Care Team Description Date Type Department Medardo Radford MD [address] [facility] [address] [place] [address] [phone] 05/26/2016 Documentation [facility] [address] [facility] [address] [place] [address] Social History Date Tobacco Use Types Packs/Day [...]
--- OUTSIDE RECORDS SUMMARY | 2020-03-16 14:12 | XMS REPORT | Encounter Summary ---
Author Author [facility] Organization [facility] Address Unknown Phone Unavailable Care Team Providers Care Fire Fighter Name Role Phone Ebony Sharp MD PCP Encounter Details Care Team Description Date Type Department Medardo Radford MD [address] [facility] [address] [place] [address] [phone] SASHA (obstructive sleep apnea) (Primary D x); Chronic obstructive pulmonary disease, unspecified COPD type (HCC); Type 2 diabetes mellitus without complication, with long-term current use of insulin ([facility]); Hair loss 05/22/2016 Office Visit [facility] [address] [facility] [address] [place], [place] [address] Social History Date Tobacco Use Types Packs/Day [...] Your Medications These medications were sent to [facility] [id number] - [place], [place] - [address] [facility] 7 AT [facility] of [facility] [address] [place] [address], [facility] [id number] nitrofurantoin (macrocrystal-monohydrate) 100 MG capsule predniSONE 20 [...] needed, [facility] assess for symptom resolution, [...] examined the patient. The note as edited [facility] is my own. . Pager: . documented in this encounter Plan of Treatment Not on filedocumented as of this encounter Visit Diagnoses Diagnosis SASHA (obstructive sleep apnea) Obstructive sleep apnea (adult) (pediat amita) Chronic obstructive pulmonary disease, unspecified COPD type (HCC) Type 2 diabetes mellitus without compli cation, with long-term current use of insulin ([facility]) Hair loss Unspecified alopecia documented in this encounter
--- OUTSIDE RECORDS SUMMARY | 2020-03-16 14:12 | XMS REPORT | Encounter Summary ---
Author Author [facility] Organization [facility] Address Unknown Phone Unavailable Care Team Providers Care Potato Chip Maker Name Role Phone Ebony Sharp MD PCP Encounter Details Care Team Description Date Type Department Ebony Sharp MD [address] [facility] [address] [place], [place] [phone] 05/26/2016 [facility] [address] [facility] [address] [place] [address] Social History Date Tobacco Use [...]
--- OUTSIDE RECORDS SUMMARY | 2020-03-16 14:12 | XMS REPORT | Encounter Summary ---
Author Author [facility] Organization [facility] Address Unknown Phone Unavailable Care Team Providers Care Hopper Attendant Name Role Phone Ebony Sharp MD PCP Reason for Visit * Sleep Study (Routine) Referred By Contact Referred To Contact Status Reason Specialty Diagnoses / Procedures Medardo Radford MD [address] [facility] [address] [place] [address] [facility] [address] [facility] [address] [place] [address] Closed Sleep Medicine Diagnoses SASHA (obstructive sleep apnea) Iron deficiency Goldberg-Ekbom syndrome Parasomnia P rocedures Split Night Sleep Study Encounter Details Care Team Description Date Type Department Medardo Radford MD [address] [facility] [address] [place] [address] [phone] SASHA (obstructive sleep apnea); Iron deficiency; Goldberg-Ekbom syndrome; Parasomnia; PLMD (periodic limb movement disorder) 05/12/2016 Nurse Only [facility] [address] [facility] [address] [place], [place] [address] Social History Date Tobacco Use Types Packs/Day [...]
--- OUTSIDE RECORDS SUMMARY | 2020-03-16 14:12 | XMS REPORT | Encounter Summary ---
Author Author [facility] Organization [facility] Address Unknown Phone Unavailable Care Team Providers Care Account Development Specialist Name Role Phone Ebony Sharp MD PCP Encounter Details Care Team Description Date Type Department Adelaida Olivas MD [address] [facility] [address] [place], [place] [address] 05/26/2016 Hist-Transcript Aide Orthopaedi c ion Encounter Specialists [address] [facility] [address] [place], [place] [address] Social History Date Tobacco Use Types Packs/Day [...] CDT Influenza 08/30/2017 08/30/2019 08/30/2019 1:09 PM WEED INSPECTOR Influenza - Rule Out 08/30/2019 08/31/2019 09/17/2019 8:17 AM WEED INSPECTOR RSV 08/31/2019 documented as of this encounter
--- OUTSIDE RECORDS SUMMARY | 2020-03-16 14:12 | XMS REPORT | Encounter Summary ---
Author Author [facility] Organization [facility] Address Unknown Phone Unavailable Care Team Providers Care Clinical Research Assistant Name Role Phone Ebony Sharp MD PCP Reason for Referral * MRI/CAT/PET Scan (Routine) Referred By Contact Referred To Contact Status Reason Specialty Diagnoses / Procedures Ebony Sharp MD [address] [facility] [address] [place] [address] Closed Diagnoses Acute chest pain P rocedures CV CT Calcium Scoring Reason for Visit * MRI/CAT/PET Scan (Routine) Referred By Contact Referred To Contact Status Reason Specialty Diagnoses / Procedures Ebony Sharp MD [address] [facility] [address] [place] [address] Closed Diagnoses Acute chest pain P rocedures CV CT Calcium Scoring Encounter Details Care Team Description Date Type Department Ebony Sharp MD [address] [facility] [address] [place], [place] [phone] [facility] [address] [place] [id number] OPTION 2 Social History Date Tobacco Use [...] Performed At [facility] NAME: ISIAH BENÍTEZ : [id number] GENDER: f ACCOUNT NUM: [id number] TEST: Coronary Calcium Score TEST DATE: TEST LOCATION: [facility] INPATIENT: INDICATION FOR TEST: None SYMPTOMS: None [...] artery, a calcium score was computed using Carlotz volumetric cardiac scoring software. Such deposits are [...] for further information. Luca Lee MD [address] [facility], [address] [place] [address] PROVIDER APPROVAL DATETIME: 2016-04-23 14:45:20.0 Procedure Note Interface, External Ris In - 05/11/2016 2:17 PM CDT NAME: ISIAH BENÍTEZ : [id number] GENDER: f ACCOUNT NUM: [id number] TEST: Coronary Calcium Score TEST DATE: TEST LOCATION: [facility] INPATIENT: INDICATION FOR TEST: None SYMPTOMS: None [...] for further information. Luca Lee MD [address] [facility], [address] [place] [address] PROVIDER APPROVAL DATETIME: 2016-05-08 14:45:20.0 Performing Organization Address City/State/Zipcode Ph one Number [facility] documented in this encounter Visit Diagnoses Diagnosis Acute chest pain Unspecified chest pain documented in this encounter
--- OUTSIDE RECORDS SUMMARY | 2020-03-16 14:12 | XMS REPORT | Encounter Summary ---
Author Author [facility] Organization [facility] Address Unknown Phone Unavailable Care Team Providers Care Block Bolter Mule Operator Name Role Phone Ebony Sharp MD PCP Reason for Referral * Diagnostic Imaging (Routine) Referred By Contact Referred To Contact Status Reason Specialty Diagnoses / Procedures Ebony Sharp MD [address] [facility] [address] [place] [address] [facility] Cv Nuc Med [address] [place] [address] Closed Cardiology Diagnoses Acute chest pain P rocedures CV MPI 2 Day SPECT Study CV MPI SPECT Pharmacologic Reason for Visit * Diagnostic Imaging (Routine) Referred By Contact Referred To Contact Status Reason Specialty Diagnoses / Procedures Ebony Sharp MD [address] [facility] [address] [place] [address] [facility] C[facility] Nuc Med [address] [place] [address] Closed Cardiology Diagnoses Acute chest pain P rocedures CV MPI 2 Day SPECT Study CV MPI SPECT Pharmacologic Encounter Details Care Team Description Date Type Department Ebony Sharp MD [address] [facility] [address] [place] [address] [phone] Acute chest pain [facility] [address] [place] [address] Social History Date Tobacco Use Types Packs/Day [...] Performed At [facility] NAME: ISIAH BENÍTEZ : [id number] AGE: 65 GENDER: F ACCOUNT NUM: [id number] TEST: REGADENOSON SESTAMIBI STRESS ON LY SPECT SCINTIGRAPHIC REPORT TEST DATE: TEST LOCATION: L REFERRING PHYSICIAN: Ebony Sharp MD SUPERVISING PHYSICIAN: Luca Lee MD MEDICATIONS MEDS LAST 24 HOURS: Pepcid, Breo Elliip ta, Lopressor, Neurontin, ASA, Clermont, Norvasc, Celexa MEDS HELD LAST 24 HOURS: [...] 0. Luca Lee MD [address] [facility], [address] [place] [address] DICTATED DATE: 2016-05-08 14:03:00.0 BORING MILL SET UP OPERATOR DATETIME: 2016-05-08 14:1 5:36.0 ACTUAL TEST TIME: PROVIDER APPROVAL DATETIME: 2016-05-08 14:51:58.0 Procedure Note Interface, External Ris In - 05/08/2016 4:25 PM CDT NAME: ISIAH BENÍTEZ : [id number] AGE: 65 GENDER: F ACCOUNT NUM: [id number] TEST: REGADENOSON SESTAMIBI STRESS ONLY SPECT SCINTIGRAPHIC REPORT TEST DATE: TEST LOCATION: REFERRING PHYSICIAN: Ebony Sharp MD SUPERVISING PHYSICIAN: Luca Lee MD MEDICATIONS MEDS LAST 24 HOURS: Pepcid, Breo Elliipta, Lopressor, Neurontin, ASA, Cl[place], Norvasc, Celexa MEDS HELD LAST 24 HOURS: [...] Agatston score of 0. Luca Lee MD [address] [facility], [address] [place] [address] DICTATED DATE: 2016-05-08 14:03:00.0 BORING MILL SET UP OPERATOR DATETIME: 2016-05-08 14:15:36.0 ACTUAL TEST TIME: PROVIDER [...]
--- OUTSIDE RECORDS SUMMARY | 2020-03-16 14:12 | XMS REPORT | Encounter Summary ---
Author Author [facility] Organization [facility] Address Unknown Phone Unavailable Care Team Providers Care Business Services Clerk Name Role Phone Ebony Sharp MD PCP Reason for Visit * Reason Comments Results PSG Results Encounter Details Care Team Description Date Type Department Medardo Radford MD [address] [facility] [address] [place] [address] [phone] Results (PSG Results) 06/01/2016 Telephone [facility] [address] [facility] [address] [place] [address] Social History Date Tobacco Use Types Packs/Day [...]
--- OUTSIDE RECORDS SUMMARY | 2020-03-16 14:12 | XMS REPORT | Encounter Summary ---
Author Author [facility] Organization [facility] Address Unknown Phone Unavailable Care Team Providers Care Sales Support Coordinator Name Role Phone Ebony Sharp MD PCP Reason for Visit * Reason Comments Other Encounter Details Care Team Description Date Type Department Ebony Sharp MD [address] [facility] [address] [place] [address] Other 05/22/2016 Refill [facility] y [facility] [address] [facility] [address] [place], [place] [address] Social History Date Tobacco Use Types Packs/Day [...]
--- OUTSIDE RECORDS SUMMARY | 2020-03-16 14:12 | XMS REPORT | Encounter Summary ---
Author Author [facility] Organization [facility] Address Unknown Phone Unavailable Care Team Providers Care Sail Finisher Hand Name Role Phone Ebony Sharp MD PCP Reason for Visit * Reason Comments Urinary Tract Infection dysuria for 2 weeks, freque ncy COPD feels like she is haivng a flare, using inhaler more Encounter Details Care Team Description Date Type Department Alex Bautista NP [address] [facility] [address] [place] [address] [phone] Dysuria (Primary Dx); Urinary tract infection, site not specified; Wheezing 05/22/2016 Office Visit [facility] [address] [facility] [address] [place] [address] Social History Date Tobacco Use [...] necessary, additional treatment may be st arted. [id number] [employer]. [address] [place] [address] 7. All rights reserved. This information is [...] AM CDT) Isolate 1 >100,000 Cfu/ml (A) [facility] Isolate 1 Escherichia coli (A) [facility] Specimen Urine Antibiotic Method Susceptibility Organism AMPICILLIN 4: Sensitive Escherichia coli CEFAZOLIN. <=4: Sensitive Escherichia coli CEFTRIAXONE <=1: Sensitive Escherichia coli CEFEPIME <=1: Sensitive Escherichia coli MEROPENEM <=0.25: Sensitive Escherichia coli GENTAMICIN <=1: Sensitive Escherichia coli CIPROFLOXACIN. <=0.25: Sensitive Escherichia coli NITROFURANTOIN <=16: Sensitive Escherichia coli SEPTRA/BACTRIM <=20: Sensitive Escherichia coli Performing Organization Address City/State/Zipcode Ph one Number [address] [address] LABORATORIES * POCT urinalysis dipstick (05/22/2016 8:59 AM CDT) Appearance, yellow.cl cloudy Colorless/Yellow/Da r Urine k Yellow Glucose Urine Negative Negative mg/dL Bilirubin Urine Small (A) Negative Ketones Urine Negative Negative Specific 1.030Comment: >= 1.001 - 1.030 [place], UA Hemoglobin Moderate (A) Negative Urine PH Urine 5.5 5.0 - 8.0 Protein Urine 100 (A) Negative Qual Urobilinogen Negative Negative EU/dL Urine Nitrite Urine Positive (A) Negative Leukocyte Large (A) Negative Esterase Specimen Urine documented in this encounter Visit Diagnoses Diagnosis Dysuria Urinary tract infection, site not speci fied Wheezing documented in this encounter
--- OUTSIDE RECORDS SUMMARY | 2020-03-16 14:12 | XMS REPORT | Encounter Summary ---
Author Author [facility] Organization [facility] Address Unknown Phone Unavailable Care Team Providers Care Industrial Refrigeration Mechanic Name Role Phone Ebony Sharp MD PCP Encounter Details Care Team Description Date Type Department Medardo Radford MD [address] [place], [place] [id number] SASHA (obstructive sleep apnea) (Primary D x) 05/18/2016 Orders Only [facility] [address] [place], [place] [id number] Social History Date Tobacco Use Types Packs/Day [...]
--- OUTSIDE RECORDS SUMMARY | 2020-03-16 14:12 | XMS REPORT | Encounter Summary ---
Author Author [facility] Organization [facility] Address Unknown Phone Unavailable Care Team Providers Care Proposal Editor Name Role Phone Ebony Sharp MD PCP Reason for Visit * Reason Comments Shortness of Breath Pt reprots SOA x1 month, wa s given prednisone by SENSOR SPECIALIST, not feeling any better, has hx of COPD. Pt also reports chest pain when she breaths and coughing up a lot of mucus today Chest pain Encounter Details Care Team Description Date Type Department Mike Kelly MD [address] [place] [address] COPD exacerbation (HCC) (Primary Dx) 06/05/2016 Emergency [facility] 06/06/2016 [address] [place] [address] Social History Date Tobacco Use [...] be sent through Care Everywhere.* COPD FLARE (BRITISH) documented in this encounter Medications at Time [...] maintenance therapy for asthma 05/09/2016 07/02/2016 FLUVIRIN 0421-7830 45 mcg ADM 0.5ML IM 0 (15 [...] OBSTRUCTIVE AIRWAYS DISEASE Medardo Radford MD [address] [address] Gege Jeff MD 06/06/16 0242 * Mike Kelly MD - 06/05/2016 10:10 PM CDT 06/05/2016 [facility] History Chief Complaint Patient presents with Shortness of Breath Pt reprots SOA x1 month, was given prednisone by SENSOR SPECIALIST, not feeling any better, h as hx [...] VQ (Results Pending) Medardo Radford MD [address] [address] ED Course There is no data filed. ED Clinical Impression 1. COPD exacerbation Mike Kelly MD 06/05/16 0530 * Janet Brown, RN - 06/05/2016 9:16 PM CDT Pt reprots SOA x1 month, was given prednisone by SENSOR SPECIALIST, not feeling any better, has hx of [...] 1:48 AM CDT) Specimen Impressions Performed At [place] [facility] ATTESTATION STATEMENT: The Staff Radiologist has personally re viewed this study and agrees with the findings in this report. READING SITE: [facility] The Staff Radiologist has personally re viewed the images and dictated, reviewed, or edited the final report. Narrative Performed At Patient: ISIAH BENÍTEZ Sex#: F # [id number] Jose#: [id number] Location: [place] [address] Procedure Requested: [id number] NM LUNG SCAN VQ Reason for Exam: [...] ISIAH BENÍTEZ Sex#: F # 1950 Jose#: [id number] Location: [place] [address] Procedure Requested: [id number] NM LUNG SCAN VQ Reason for Exam: [...] findings in this report. READING SITE: [facility] The Staff Radiologist has personally reviewed the images and dictated, reviewed, or edited the final report. Performing Organization Address City/[facility] [address]/[facility] one Edgar SIMS * D Dimer (06/05/2016 10:09 PM CDT) D Dimer 1.32 (H)Comment: Cutoff value 0.00 - 0.40 ug/m L L[facility]'S for exclusion of venous FEU [facility] Z[facility]A'[facility] thromboembolism is <0.40 ug/mL [facility] FE[facility]. Specimen Blood Performing Organization Address [facility] [address]/[facility] one Number [facility] [address] [facility] [place] [address] [facility] [address] [facility] [place] [address], [facility] * XR Chest 2 views (PA and lateral) (06/05/2016 10:03 PM CDT) Specimen Impressions Performed At Left midlung zone subsegmental atelectasis. No acute [facility] cardiopulmonary process. ATTESTATION STATEMENT: The Staff Radiol ogist has personally reviewed the images and dictated, reviewed, or edite d the final report. READING SITE: [facility] The Staff Radiologist has personally re viewed the images and dictated, reviewed, or edited the final report. Narrative Performed At Patient: ISIAH BENÍTEZ Sex#: Paulina # 1950 Jose#: [id number] Location: [facility] SED-12 Procedure Requested: [id number] XR CHEST 2 VIEWS (PA AND LATERAL) [...] ISIAH BENÍTEZ Sex#: Paulina # 1950 Jose#: [id number] Location: [facility] SED-12 Procedure Requested: [id number] XR CHEST 2 VIEWS (PA AND LATERAL) [...] edited the final report. READING SITE: [facility] The Staff Radiologist has personally reviewed the images and dictated, reviewed, or edited the final report. Performing Organization Address City/[facility] [address]/[facility] Ph one Number MCKESSON * NTproBNP (06/05/2016 [...] GFR <30. Specimen Blood Performing Organization Address City/[facility] [address]/[facility] Ph one Number [facility] [address] [place], [place] [id number] [facility] [address] [place] [address], [place] [phone] [facility] * Troponin (06/05/2016 9:36 PM CDT) Troponin <0.01 0.00 - 0.03 ng/mL [facility] Comment: [facility] Troponin Value [facility] Interpretation 0.00 - 0.03 Healthy 0.04 - 0.12 Increased Cardiac Risk >0.12 Myocardial Infarction Troponin may not become elevated until 6 to 8 hours after onset of symptoms. Specimen Blood Performing Organization Address City/[facility] [address]/[facility] Ph one Number [facility] [address] [place] [address] [facility] [address] [place] [address], [facility] * Prothrombin Time/INR - ONLY if patient is on Warfarin (06/05/2016 9:36 PM CDT) Protime 12.5 11.4 - 15.0 sec [facility] INR 0.9 0.8 - 1.2 [facility] Specimen Blood Performing Organization Address City/State/[facility] Ph one Number [facility] [address] [place] [address] [facility] [address] [place] [address], [place] [phone] [facility] * CBC and Diff (manual diff if necessary) (06/05/2016 9:36 PM CDT) WBC 11.24 (H) 4.00 - 11.00 TH/uL [facility] RBC 4.10 4.00 - 5.00 MIL/uL [facility] Hemoglobin 13.5 12.0 - 15.0 g/dL [facility] Hematocrit 41 36 - 45 % [facility] MCV 100 (H) 80 - 99 fL [facility] MCH 33 27 - 34 pg [facility] MCHC 33 32 - 36 % [facility] RDW 13.7 9.0 - 14.5 % [facility] Platelet Count 167 140 - 400 TH/uL [facility] MPV 9.7 9.4 - 12.3 fL [facility] % Neutrophils 62 45 - 78 % [facility] %Lymphocytes 26 15 - 47 % [facility] %Monocytes 9 0 - 12 % [facility] %Eosinophils 3 0 - 7 % [facility] %Basophils 0 0 - 2 % [facility] # Granulocytes 7.01 (H) 1.7 - 6.8 TH/uL [facility] # Lymphocytes 2.92 1.0 - 3.3 TH/uL [facility] # Monocytes 0.96 (H) 0.2 - 0.9 TH/uL [facility] # Eosinophils 0.33 0.0 - 0.4 TH/uL [facility] # Basophils 0.02 0.0 - 0.1 TH/uL [facility] Specimen Blood Performing Organization Address City/State/Zipcode Ph one Number [facility] [address] [facility] [place] [address] [facility] [address] [facility] [place], [place] [address], [facility] * Comprehensive Metabolic Panel (06/05/2016 9:36 PM CDT) [facility] Sodium 140 133 - 147 MEQ/L [facility] Potassium 3.9 3.5 - 5.3 MEQ/L [facility] Chloride 102 96 - 112 MEQ/L [facility] Carbon Dioxide 27 20 - 32 MEQ/L [facility] Anion Gap 11 5 - 17 [facility] Calcium 8.7 8.4 - 10.5 mg/dL [facility] Glucose 160 (H) 70 - 100 mg/dL [facility] Protein Total 7.6 6.0 - 8.2 g/dL [facility] Serum [facility] Albumin 4.2 3.5 - 5.0 g/dL [facility] Alkaline 76 42 - 140 IU/L [facility] Phosphatase [facility] Alanine 33 13 - 69 IU/L [facility] Aminotransferas [facility] Aspartate 32 15 - 46 IU/L [facility] Aminotransferas [facility] e [facility] Bilirubin Total 0.5 0.2 - 1.3 mg/dL [facility] Blood Urea 19 7 - 26 mg/dL [facility] Nitrogen [facility] Creatinine 0.8 0.4 - 1.1 mg/dL [facility] eGFR Female AA 87 60 - 200 [facility] Comment: [facility] Chronic Kidney Disease less [facility] than 60 mL/min/1.73 sq.m Kidney failure less than 15 mL/min/1.73 sq.m eGFR Female 72 60 - 200 [facility] Non-AA Comment: [facility] Chronic Kidney Disease less [facility] than 60 mL/min/1.73 sq.m Kidney failure less than 15 mL/min/1.73 sq.m Specimen Blood Performing Organization Address City/State/[facility] Ph one Number [facility] [address] [facility] [address] [facility] [address] [facility] [place] [address], [place] [phone] [facility] * Electrocardiogram (ECG) (06/05/2016 9:18 PM CDT) Specimen Narrative Performed At [facility] ED Test Date: 2016-06-05 Pat Name: ISIAH BENÍTEZ Department: ERS Room: SED Gender: Female Airline Captain: SILVERIO : 1950 Requested By: SANTI TURK Order Number: [id number] Reading MD: Luca Lee Measurements Intervals Pinole Rate: 75 P: 56 IA: 160 QRS: 61 QRSD: 104 T: 62 QT: 400 QTc: 447 Interpretive Statements SINUS RHYTHM Compared to ECG 12/31/2015 14:02:38 No significant changes Electronically Signed On 06-11-2016 11: 25:04 CDT by Luca Lee Procedure Note Interface, External Ris In - 06/11/2016 11:25 AM CDT [facility] ED Test Date: 2016-06-05 Pat Name: ISIAH BENÍTEZ Department: ERS Room: SED Gender: Female Airline Captain: DF : 1950 Requested By: SANTI TURK Order Number: [id number] Reading : Luca Lee Measurements Intervals [place]ole Rate: 75 P: 56 IA: 160 QRS: 61 QRSD: 104 T: 62 QT: 400 QTc: 447 Interpretive Statements SINUS RHYTHM Compared to ECG 12/31/2015 14:02:38 No significant changes Electronically Signed On 06-11-2016 11:25:04 CDT by Luca Lee Performing Organization Address City/State/Zipcodc Ph one Number [email or web address] documented in this [...]
--- OUTSIDE RECORDS SUMMARY | 2020-03-16 14:13 | XMS REPORT | Encounter Summary ---
Author Author [facility] Organization [facility] Address Unknown Phone Unavailable Care Team Providers Care Bomb Loader Name Role Phone Ebony Sharp MD PCP Reason for Visit * Reason Comments Other Encounter Details Care Team Description Date Type Department Medardo Radford MD [address] [place], [place] [id number] 02/25/2016 Telephone [facility] ogy [address] [place] [address] Social History Date Tobacco Use Types Packs/Day [...]
--- OUTSIDE RECORDS SUMMARY | 2020-03-16 14:13 | XMS REPORT | Encounter Summary ---
Author Author [facility] Organization [facility] Address Unknown Phone Unavailable Care Team Providers Care Rn Cvicu Name Role Phone Ebony Sharp MD PCP Reason for Visit * Reason Comments Other Encounter Details Care Team Description Date Type Department Ebony Sharp MD [address] [facility] [address] [place] [address] Other 03/21/2016 Refill [facility] Primil y [facility] [address] [facility] [address] [place], [place] [address] Social History Date Tobacco Use Types Packs/Day [...]
--- OUTSIDE RECORDS SUMMARY | 2020-03-16 14:13 | XMS REPORT | Encounter Summary ---
Author Author [facility] Organization [facility] Address Unknown Phone Unavailable Care Team Providers Care Gasoline Truck Operator Name Role Phone Ebony Sharp MD PCP Reason for Referral * Diagnostic Imaging (Routine) Referred By Contact Referred To Contact Status Reason Specialty Diagnoses / Procedures Ebony Sharp MD [address] [facility] [address] [place] [address] [facility] [address] [place] [address] Closed Cardiology Diagnoses Essential hypertension P rocedures Echo Complete with Doppler and Color Flow Encounter Details Care Team Description Date Type Department Ebony Sharp MD [address] [facility] 200 [place] [address] [phone] Essential hypertension 05/08/2016 [facility] al Encounter [address] [place], [place] [id number] Social History Date Tobacco Use Types Packs/Day [...] ISIAH BENÍTEZ Date: 05/08/2016 07:34 Chart #: [id number] : 1950 Location: [facility] OP Sono: jlblanca Age: 65 Gender: F Referring: EBONY SHARP MD Room #: OP Fellow: Indication:Essential (primary) hypert ension Procedure: 81801 Complete Echo 2D/Col orflow/Doppler BP: 140 / [...] ISIAH BENÍTEZ Date: 05/08/2016 07:34 Chart #: [id number] : 1950 Location: [facility] OP Sono: hannah Age: 65 Gender: F Referring: EBONY SHARP MD Room #: OP Fellow: Indication:Essential (primary) hypertension Procedure: 87930 Complete Echo 2D/Colorflow/Doppler BP: 140 / 86 [...]
--- OUTSIDE RECORDS SUMMARY | 2020-03-16 14:13 | XMS REPORT | Encounter Summary ---
Author Author [facility] Organization Address Unknown Phone Unavailable Care Team Providers Care Product Designer Name Role Phone Ebony Sharp MD PCP Reason for Visit * Reason Comments Follow-up Margot Left Ankle/algTVX: Brissa t. Reminder (04/21/2016 06:56 PM) Phone Call - Message Delivered (X=Answering Machine) Encounter Details Care Team Description Date Type Department Mendy Carpenter PA-C [address] [place] [address] [phone] 04/23/2016 Hist-Appointmen Aide Smith[facility] t [facility]ists [address] [facility] [address] [place] [address] Social History Date Tobacco Use Types Packs/Day [...]
--- OUTSIDE RECORDS SUMMARY | 2020-03-16 14:13 | XMS REPORT | Encounter Summary ---
Author Author [facility] Organization [facility] Address Unknown Phone Unavailable Care Team Providers Care Wheel And Caster Repairer Name Role Phone Ebony Sharp MD PCP Reason for Visit * Reason Comments Follow-up eldon left ankle // sm 01/27TVX: Appt. Reminder (02/14/2016 06:40 PM) Phone Call - Responded "Yes" (Y=Answere d - Yes) Encounter Details Care Team Description Date Type Department Adelaida Olivas MD [address] [facility] [address] [place] [address] [phone] 02/18/2016 Hist-Appointmen Aide [facility] t [facility] [address] [facility] [address] [place] [address] Social History Date Tobacco Use Types Packs/Day [...]
--- OUTSIDE RECORDS SUMMARY | 2020-03-16 14:13 | XMS REPORT | Encounter Summary ---
Author Author [facility] Organization [facility] Address Unknown Phone Unavailable Care Team Providers Care Manager Career Name Role Phone Ebony Sharp MD PCP Reason for Referral * Diagnostic Imaging (Routine) Referred By Contact Referred To Contact Status Reason Specialty Diagnoses / Procedures Ebony Sharp MD [address] [facility] [address] [place] [address] [facility] Cv Nuc Med [address] [place] [address] Closed Cardiology Diagnoses Acute chest pain P rocedures CV MPI 2 Day SPECT Study CV MPI SPECT Pharmacologic Reason for Visit * Reason Comments Follow-up 4mth fu Encounter Details Care Team Description Date Type Department Ebony Sharp MD [address] [facility] [address] [place], [place] [id number] Acute chest pain (Primary Dx); Type 2 diabetes mellitus without complication (HCC); Essential hypertension; MATA (generalized anxiety disorder); Hyperlipidemia 02/14/2016 Office Visit [facility] [address] [facility] [address] [place] [address] Social History Date Tobacco Use [...] Performed At [facility] NAME: ISIAH BENÍTEZ : [id number] AGE: 65 GENDER: F ACCOUNT NUM: [id number] TEST: REGADENOSON SESTAMIBI STRESS ON LY SPECT SCINTIGRAPHIC REPORT TEST DATE: TEST LOCATION: L REFERRING PHYSICIAN: Ebony Sharp MD SUPERVISING PHYSICIAN: Luca Lee MD MEDICATIONS MEDS LAST 24 HOURS: Pepcid, Breo Elliip ta, Lopressor, Neurontin, ASA, [place], Norvasc, Celexa MEDS HELD LAST 24 HOURS: [...] score of 0. Luca Lee MD [address] [facility], [address] [place] [address] DICTATED DATE: 2016-05-08 14:03:00.0 WOMEN'S SWIM COACH DATETIME: 2016-05-08 14:1 5:36.0 ACTUAL TEST TIME: PROVIDER APPROVAL DATETIME: 2016-05-08 14:51:58.0 Procedure Note Interface, External Ris In - 05/08/2016 4:25 PM CDT NAME: ISIAH BENÍTEZ : [id number] AGE: 65 GENDER: F ACCOUNT NUM: [id number] TEST: REGADENOSON SESTAMIBI STRESS ONLY SPECT SCINTIGRAPHIC REPORT TEST DATE: TEST LOCATION: REFERRING PHYSICIAN: Ebony Sharp MD SUPERVISING PHYSICIAN: Luca Lee MD MEDICATIONS MEDS LAST 24 HOURS: Pepcid, Breo Elliipta, Lopressor, Neurontin, ASA, [place], Norvasc, Celexa MEDS HELD LAST 24 HOURS: [...] score of 0. Luca Lee MD [address] [facility], [address] [place] [address] DICTATED DATE: 2016-05-08 14:03:00.0 WOMEN'S SWIM COACH DATETIME: 2016-05-08 14:15:36.0 ACTUAL TEST TIME: PROVIDER [...]
--- OUTSIDE RECORDS SUMMARY | 2020-03-16 14:13 | XMS REPORT | Encounter Summary ---
Author Author [facility] Organization [facility] Address Unknown Phone Unavailable Care Team Providers Care Chronograph Operator Name Role Phone Ebony Sharp MD PCP Encounter Details Care Team Description Date Type Department [place], Historical 04/23/2016 Hist-Transcript [place] [facility] ion Encounter Specialists [address] [facility] [address] [place], [place] [address] Social History Date Tobacco Use Types Packs/Day Years Used Quit: 09/14/2009 Former Smoker Smokeless Tobacco: Never Used Drinks/Week oz/Week Comments Alcohol Use No Sex Assigned at Date Recorded Female Industry Job Start Date Occupation Not on file Not on file Not on file Travel End Travel History Travel Start No recent travel history available. documented as of this encounter Progress Notes * [place], Historical - 04/23/2016 1:49 PM CDT - [...] CDT Influenza 08/30/2017 08/30/2019 08/30/2019 1:09 PM BUSINESS PLANNING MANAGER Influenza - Rule Out 08/30/2019 08/31/2019 09/17/2019 8:17 AM BUSINESS PLANNING MANAGER RSV 08/31/2019 documented as of this encounter
--- OUTSIDE RECORDS SUMMARY | 2020-03-16 14:13 | XMS REPORT | Encounter Summary ---
Author Author [facility] Organization [facility] Address Unknown Phone Unavailable Care Team Providers Care Travel Accommodations Rater Name Role Phone Ebony Sharp MD PCP Encounter Details Care Team Description Date Type Department Adelaida Olivas MD [address] [facility] [address] [place] [address] [phone] 02/18/2016 Hist-Other [facility] [address] [place] [address] Social History Date Tobacco Use Types Packs/Day [...]
--- OUTSIDE RECORDS SUMMARY | 2020-03-16 14:13 | XMS REPORT | Encounter Summary ---
Author Author [facility] Organization [facility] Address Unknown Phone Unavailable Care Team Providers Care Chef Head Name Role Phone Ebony Sharp MD PCP Encounter Details Care Team Description Date Type Mendy Mckenzie PA-C [address] [address] [phone] 04/23/2016 Hist-Other [facility] [address] [place] [address] Social History Date Tobacco Use Types Packs/Day [...] Organization Address City/State/Zipcode Ph one Number [facility] documented in this encounter Visit Diagnoses Not on filedocumented in this encounter Additional Health Concerns Last Indicated Resolved Time Infection Onset Date 08/30/2017 04/19/2018 12:13 PM CDT Influenza 08/30/2017 documented as of this encounter
--- OUTSIDE RECORDS SUMMARY | 2020-03-16 14:13 | XMS REPORT | Encounter Summary ---
Author Author [facility] Organization [facility] Address Unknown Phone Unavailable Care Team Providers Care New Car Inspector Name Role Phone Ebony Sharp MD PCP Encounter Details Care Team Description Date Type Department Adelaida Olivas MD [address] [facility] [address] [place], [place] [address] 02/18/2016 Hist-Transcript [facility] ion Encounter Specialists [address] [facility] [address] [place], [place] [address] Social History Date Tobacco Use Types Packs/Day [...] CDT Influenza 08/30/2017 08/30/2019 08/30/2019 1:09 PM MEDIA EXECUTIVE Influenza - Rule Out 08/30/2019 08/31/2019 09/17/2019 8:17 AM MEDIA EXECUTIVE RSV 08/31/2019 documented as of this encounter
--- OUTSIDE RECORDS SUMMARY | 2020-03-16 14:13 | XMS REPORT | Encounter Summary ---
Author Author [facility] Organization [facility] Address Unknown Phone Unavailable Care Team Providers Care Solar Sales Advisor Name Role Phone Ebony Sharp MD PCP Encounter Details Care Team Description Date Type Department Adelaida Olivas MD [address] [facility] [address] [place], [place] [address] 04/30/2016 Hist-Transcript [facility] Orthopaedi c ion Encounter Specialists [address] 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
--- OUTSIDE RECORDS SUMMARY | 2020-03-16 14:13 | XMS REPORT | Encounter Summary ---
Author Author [facility] Organization [facility] Address Unknown Phone Unavailable Care Team Providers Care Cobbler Upper Name Role Phone Ebony Sharp MD PCP Encounter Details Care Team Description Date Type Department Adelaida Olivas MD [address] [facility] [address] [place] [address] 03/16/2016 Hist[place]Telephone [place] [facility] [address] [facility] [address] [place], [place] [address] Social History Date Tobacco Use Types Packs/Day [...] and [facility] Follow-up for [...] Influenza 08/30/2017 08/30/2019 08/30/2019 1:09 PM SENIOR CYTOGENETIC TECHNOLOGIST Influenza - Rule Out 08/30/2019 08/31/2019 09/17/2019 8:17 AM SENIOR CYTOGENETIC TECHNOLOGIST RSV 08/31/2019 documented as of this encounter
--- OUTSIDE RECORDS SUMMARY | 2020-03-16 14:13 | XMS REPORT | Encounter Summary ---
Author Author [facility] Organization [facility] Address Unknown Phone Unavailable Care Team Providers Care Ethylbenzene Converter Helper Name Role Phone Ebony Sharp MD PCP Reason for Visit * Reason Comments Follow-up eldon L ankle Encounter Details Care Team Description Date Type Department Adelaida Olivas MD [address] [facility] [address] [place] [address] [phone] 04/30/2016 [facility] [address] [facility] [address] [place] [address] Social History Date Tobacco Use Types Packs/Day [...]
--- OUTSIDE RECORDS SUMMARY | 2020-03-16 14:13 | XMS REPORT | Encounter Summary ---
Author Author [facility] Organization [facility] Address Unknown Phone Unavailable Care Team Providers Care Make Up Editor Name Role Phone Ebony Sharp MD PCP Encounter Details Care Team Description Date Type Mendy Mckenzie PA-C [address] [address] [phone] 04/23/2016 Hist-Other [facility] [address] [place] [address] Social History Date Tobacco Use Types Packs/Day [...]
--- OUTSIDE RECORDS SUMMARY | 2020-03-16 14:13 | XMS REPORT | Encounter Summary ---
Author Author [facility] Organization [facility] Address Unknown Phone Unavailable Care Team Providers Care Advanced Seal Delivery System Name Role Phone Ebony Sharp MD PCP Reason for Visit * Reason Comments Follow-up recdk lft ankle mri at [facility] [id number] kmhTVX: Appt. Reminder (04/28/2016 07:21 PM) Phone Call - Responded "Yes" (Y=Answered - Yes) Encounter Details Care Team Description Date Type Department Mendy Carpenter PA-C [address] [address] [phone] 04/30/2016 Hist[facility]Appointmen [facility] [address] [facility] [address] [place] [address] Social History Date Tobacco Use Types Packs/Day [...]
--- OUTSIDE RECORDS SUMMARY | 2020-03-16 14:13 | XMS REPORT | Encounter Summary ---
Author Author [facility] Organization [facility] Address Unknown Phone Unavailable Care Team Providers Care Technology Support Analyst Name Role Phone Ebony Sharp MD PCP Encounter Details Care Team Description Date Type Department Adelaida Olivas MD [address] [facility] [address] [place] [address] [phone] 02/18/2016 Hist-Other [facility] [address] [place] [address] Social History Date Tobacco Use Types Packs/Day [...]
--- OUTSIDE RECORDS SUMMARY | 2020-03-16 14:13 | XMS REPORT | Encounter Summary ---
Author Author [facility] Organization [facility] Address Unknown Phone Unavailable Care Team Providers Care Recreation Facility Attendant Name Role Phone Ebony Sharp MD PCP Encounter Details Care Team Description Date Type Department Ebony Sharp MD [address] [facility] [address] [place] [address] 03/09/2016 [facility]ation [facility] [address] [facility] [address] [place] [address] Social History Date Tobacco Use [...]
--- OUTSIDE RECORDS SUMMARY | 2020-03-16 14:13 | XMS REPORT | Encounter Summary ---
Author Author [facility] Organization [facility] Address Unknown Phone Unavailable Care Team Providers Care Machine Sewer Name Role Phone Ebony Sharp MD PCP Encounter Details Care Team Description Date Type Department Medardo Radford MD [address] [id number] SASHA (obstructive sleep apnea); Iron deficiency; Goldberg-Ekbom syndrome; Parasomnia 02/21/2016 Lab [facility] [phone] Social History Date Tobacco Use Types Packs/Day [...] Ferritin 201 (H) 20 - 200 ng/mL [facility] Specimen Blood Performing Organization Address City/State/Zipcode Ph one Number [facility] [address] [place] [phone] LABORATORIES documented in this encounter Visit Diagnoses Diagnosis SASHA (obstructive sleep apnea) Obstructive sleep apnea (adult) (pediat amita) Iron deficiency 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
--- OUTSIDE RECORDS SUMMARY | 2020-03-16 14:13 | XMS REPORT | Encounter Summary ---
Author Author [facility] Organization [facility] Address Unknown Phone Unavailable Care Team Providers Care Fire Range Technician Name Role Phone Ebony Sharp MD PCP Reason for Referral * Diagnostic Imaging (Routine) Referred By Contact Referred To Contact Status Reason Specialty Diagnoses / Procedures Sle Slmg Ls Im/Pc Cl [address] [facility] [address] [place] [address] Closed Procedures DEXA Bone Density Hip Pelvis Spine Encounter Details Care Team Description Date Type Department Ebony Sharp MD [address] [facility] [address] [place], [place] [id number] 03/18/2016 Documentation [facility] [address] [facility] [address] [place] [address] Social History Date Tobacco Use [...]
--- OUTSIDE RECORDS SUMMARY | 2020-03-16 14:13 | XMS REPORT | Encounter Summary ---
Author Author [facility] Organization [facility] Address Unknown Phone Unavailable Care Team Providers Care Sustainability Officer Name Role Phone Ebony Sharp MD PCP Encounter Details Care Team Description Date Type Department Juarez Noble 04/29/2016 Hist-Transcript [facility] Encounter Specialists [address] [facility] [address] [place], [place] [address] Social History Date Tobacco Use Types Packs/Day [...] [address], [address] * [place] [address] * [phone] [address] * [place] [address] * [phone] [address] [facility] * [place] [address] * [phone] [address], [address] * [place] [address] * [phone] [address] [facility] * [place] [address] * [phone] [address] [facility] [address] * [place] [address] * [phone] [phone] * [phone] documented in this encounter Plan of Treatment Not on filedocumented as of this encounter Procedures Comments Procedure Name Priority Date/Time Associated Diag nosis MRI PROCEDURE REPORT 04/29/2016 HISTORICAL 6:41 PM CDT documented in this encounter Results * MRI PROCEDURE REPORT HISTORICAL (04/29/2016 6:41 PM CDT) Specimen Narrative Performed At Ordered by an unspecified provider. Procedure Note Interface, Candles Pourer Conversion - 04/30/2016 11:04 AM CDT MRI [...] [address] * [place] [address] * [phone] [address], [address] * [place] [address] * [phone] [facility] * [place] [address] * [phone] [address] * [place] [address] * [phone] [address] [facility] * [place], [place] [address] * [phone] [address] * [place], [place] [address] * [phone] [phone] * [phone] documented in this encounter Visit Diagnoses Not on filedocumented in this encounter Additional Health Concerns Last Indicated Resolved Time Infection Onset Date 08/30/2017 04/19/2018 12:13 PM CDT Influenza 08/30/2017 08/30/2019 08/30/2019 1:09 PM SUPERVISOR MULTIFOCAL LENS Influenza - Rule Out 08/30/2019 08/31/2019 09/17/2019 8:17 AM SUPERVISOR MULTIFOCAL LENS RSV 08/31/2019 documented as of this encounter
--- OUTSIDE RECORDS SUMMARY | 2020-03-16 14:13 | XMS REPORT | Encounter Summary ---
Author Author [facility] Organization [facility] Address Unknown Phone Unavailable Care Team Providers Care Jewelry Sales Coordinator Name Role Phone Ebony Sharp MD PCP Reason for Visit * Reason Comments Other Encounter Details Care Team Description Date Type Department Ebony Sharp MD [address] [facility] [address] [place] [address] Other 02/29/2016 Refill [facility] [address] [facility] [address] [place], [place] [phone] Social History Date Tobacco Use Types Packs/Day [...]
--- OUTSIDE RECORDS SUMMARY | 2020-03-16 14:13 | XMS REPORT | Encounter Summary ---
Author Author Organization Address Unknown Phone Unavailable Care Team Providers Care Hand Box Folder Name Role Phone Ebony Sharp MD PCP Encounter Details Care Team Description Date Type Department Medardo Radford MD [address] [facility] [address] [place] [address] [phone] 03/09/2016 Documentation [facility] [address] [facility] [address] [place] [address] Social History Date Tobacco Use Types Packs/Day [...] CDT No PA required for CPT codes 99875-63484 split night sleep study. Pt has Medicar e, requires no pa or pre cert for any procedures. PT scheduled for 04/16 at sle documented in this encounter Plan of Treatment Not on filedocumented as of this encounter Visit Diagnoses Not on filedocumented in this encounter
--- OUTSIDE RECORDS SUMMARY | 2020-03-16 14:13 | XMS REPORT | Encounter Summary ---
Author Author [facility] Organization [facility] Address Unknown Phone Unavailable Care Team Providers Care Heavy Truck Mechanic Name Role Phone Ebony Sharp MD PCP Encounter Details Care Team Description Date Type Department Adelaida Olivas MD [address] [facility] [address] [place] [address] 05/06/2016 Hist-Telephone [facility] [address] [facility] [address] [place], [place] [id number] Social History Date Tobacco Use Types Packs/Day [...] about this. Please call patient back at [phone]. Call taken by: Trina Rhodes on May [...] CDT Influenza 08/30/2017 08/30/2019 08/30/2019 1:09 PM SHEET ROCK SANDER Influenza - Rule Out 08/30/2019 08/31/2019 09/17/2019 8:17 AM SHEET ROCK SANDER RSV 08/31/2019 documented as of this encounter
--- OUTSIDE RECORDS SUMMARY | 2020-03-16 14:13 | XMS REPORT | Encounter Summary ---
Author Author [facility] Organization [facility] Address Unknown Phone Unavailable Care Team Providers Care Funeral Home Associate Name Role Phone Ebony Sharp MD PCP Encounter Details Care Team Description Date Type Department Ebony Sharp MD [address] [facility] [address] [place], [place] [id number] 02/17/[address] [facility] [address] [facility] [address] [place], [place] [address] Social History Date Tobacco Use Types Packs/Day [...]
--- OUTSIDE RECORDS SUMMARY | 2020-03-16 14:13 | XMS REPORT | Encounter Summary ---
Author Author [facility] Organization [facility] Address Unknown Phone Unavailable Care Team Providers Care Administrative Analyst Name Role Phone Ebony Sharp MD PCP Reason for Referral * Sleep Study (Routine) Referred By Contact Referred To Contact Status Reason Specialty Diagnoses / Procedures Medardo Radford MD [address] [facility] [address] [place] [address] [facility] [address] [place] [address] Closed Sleep Medicine Diagnoses SASHA (obstructive sleep apnea) Iron deficiency Goldberg-Ekbom syndrome Parasomnia P rocedures Split Night Sleep Study Reason for Visit * Reason Comments Sleep Apnea Encounter Details Care Team Description Date Type Department Medardo Radford MD [address] [facility] [address] [place], [place] [id number] SASHA (obstructive sleep apnea) (Primary D x); Iron deficiency; Goldberg-Ekbom syndrome; Parasomnia 02/21/2016 Initial consult [facility] [address] [facility] [address] [place], [place] [address] Social History Date Tobacco Use Types Packs/Day [...] tired, and daytime hypersomnia is minimal with [place] Sleepiness Sca le score of 4/24. Secondary [...] and dysrhythmia. 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 Snoring is present, and disturbing to others [...] night. Patient is instructed to have a public transit bus driver to assist with transportation to and [...] Please excuse any typographic or grammatical errors. [facility] Neurologist Attestation: I have personally interviewed and examined the patient. The note as edited abomaria luz e is my own. . Pager: . documented in this encounter Plan of Treatment Not on filedocumented as of this encounter Results * Split Night Sleep Study (05/18/2016 10:49 AM CDT) Narrative Performed At This result has an attachment that is n ot available. * Ferritin (02/21/2016 8:16 PM CDT) Ferritin 201 (H) 20 - 200 ng/mL [facility] Specimen Blood Performing Organization Address City/State/Zipcode Ph one Number [address] [address] LABORATORIES documented in this encounter Visit Diagnoses Diagnosis SASHA (obstructive sleep apnea) Obstructive sleep apnea (adult) (pediat amita) Iron deficiency 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
--- OUTSIDE RECORDS SUMMARY | 2020-03-16 14:14 | XMS REPORT | Encounter Summary ---
Author Author [facility] Organization [facility] Address Unknown Phone Unavailable Care Team Providers Care Cleaner Industrial Name Role Phone Ebony Sharp MD PCP Encounter Details Care Team Description Date Type Department Ebony Sharp MD [address] [facility] [address] [place], [place] [phone] 11/25/2015 Documentation [facility] [address] [facility] [address] [place] [address] Social [...]
--- OUTSIDE RECORDS SUMMARY | 2020-03-16 14:14 | XMS REPORT | Encounter Summary ---
Author Author [facility] Organization [facility] Address Unknown Phone Unavailable Care Team Providers Care Commercial Construction Superintendent Name Role Phone Ebony Sharp MD PCP Reason for Visit * Reason Comments Chest pain feels realy tired Encounter Details Care Team Description Date Type Department Primo Huddleston RN ACNP [address] [facility] [address] [place] [address] Acute chest pain (Primary Dx) 12/31/2015 Office Visit [facility] [address] [facility] [address] [place] [address] Social History Date Tobacco Use [...] - - Height 42.58 09/14/2015 5:31 AM LANDCARE FACILITATOR Body Mass Index documented in this encounter Progress Notes * Primo Huddleston, RN ACNP - 12/31/2015 1:54 PM CDT Caren Do [facility] 1950 [phone] Reason For Visit: Chief Complaint Patient presents [...] may contain nonclinical errors using voice recognition Sqwiggle software. documented in this encounter Plan of Treatment Not on filedocumented as of this encounter Visit Diagnoses Diagnosis Acute chest pain Unspecified chest pain documented in this encounter
--- OUTSIDE RECORDS SUMMARY | 2020-03-16 14:14 | XMS REPORT | Encounter Summary ---
Author Author [facility] Organization [facility] Address Unknown Phone Unavailable Care Team Providers Care Linux Devops Engineer Name Role Phone Ebony Sharp MD PCP Encounter Details Care Team Description Date Type Department Ebony Sharp MD [address] [facility] [address] [place], [place] [phone] Health care maintenance (Primary Dx) 12/06/2015 Lab [facility] Primar y Care - [facility] [address] [facility] [address] [place], [place] [address] Social History Date Tobacco Use Types Packs/Day [...] T4 Free 1.1 0.8 - 2.2 ng/dL [facility]IES Specimen Blood Performing Organization Address City/State/Zipcode Ph one Number [facility] [address] [place] [address] LABORATORIES * Thyroid Stimulating Hormone (12/06/2015 12:42 PM CDT) Thyroid 0.27 (L) 0.47 - 4.68 uIU/mL [facility] Hormone LABORATORIES Specimen Blood Performing Organization Address City/State/Zipcode Ph one Number [facility] [address] [place] [address] LABORATORIES documented in this encounter Visit Diagnoses Diagnosis Health care maintenance documented in this encounter
--- OUTSIDE RECORDS SUMMARY | 2020-03-16 14:14 | XMS REPORT | Encounter Summary ---
Author Author [facility] Organization [facility] Address Unknown Phone Unavailable Care Team Providers Care Cardiology Nurse Practitioner Name Role Phone Ebony Sharp MD PCP Reason for Visit * Reason Comments Chest pain Pt complains of left sided chest pain and tightness x5 days. States it got worse today. Encounter Details Care Team Description Date Type Department Luciano Funes MD [address] [facility] [place] [address] [phone] Acute chest pain (Primary Dx); Essential hypertension 12/31/2015 Emergency [facility] [address], [place] [id number] Social History Date Tobacco Use Types Packs/Day [...] Swelling, pain or redness in one leg [id number] [employer]. [address] [place] [address] 7. All rights reserved. This information is [...] as of this encounter Consult Notes * [place]ownLouisa esqueda RN - 12/31/2015 4:13 PM CDT Associated Order(s): IP CONSULT TO VASCULAR ACCESS TEAM Consult received for PIV. See IV flow sheet documented in this encounter ED Notes * Luciano Funes MD - 12/31/2015 3:16 PM CDT 12/31/2015 [facility] History Chief Complaint Patient [...] * Troponin (12/31/2015 2:59 PM CDT) Pathologist [facility] Troponin <0.01 0.00 - 0.03 ng/mL [facility] Comment: AL[facility] Troponin Value [facility] Interpretation 0.00 - 0.03 Healthy 0.04 - 0.12 Increased Cardiac Risk >0.12 Myocardial Infarction Troponin may not become elevated until 6 to 8 hours after onset of symptoms. Specimen Blood Performing Organization Address City/[facility] Ph one Number [facility] [address] [facility] [place], [place] [phone] [facility] [address] [facility] [place] [address], [place] [phone] [facility] * Prothrombin Time/INR - ONLY if patient is on Warfarin (12/31/2015 2:59 PM CDT) Pathologist [facility] Protime 11.8 11.4 - 15.0 sec [facility] INR 0.9 0.8 - 1.2 [facility] Specimen Blood Performing Organization Address City/State/[facility] Ph one Number [facility] [address] [facility], [place] [address] [facility] [address] [facility] [place] [address], [place] [phone] [facility] * CBC and Diff (manual diff if necessary) (12/31/2015 2:59 PM CDT) WBC 10.31 4.00 - 11.00 TH/uL [facility] RBC 4.38 4.00 - 5.00 MIL/uL [facility] Hemoglobin 14.7 12.0 - 15.0 g/dL [facility] Hematocrit 43 36 - 45 % [facility] MCV 99 80 - 99 fL [facility] MCH 34 27 - 34 pg [facility] MCHC 34 32 - 36 % [facility] RDW 13.5 9.0 - 14.5 % [facility] Platelet Count 166 140 - 400 TH/uL [facility] MPV 9.6 9.4 - 12.3 fL [facility] % Neutrophils 52 45 - 78 % [facility] %Lymphocytes 35 15 - 47 % [facility] %Monocytes 9 0 - 12 % [facility] %Eosinophils 4 0 - 7 % [facility] %Basophils 0 0 - 2 % [facility] # Granulocytes 5.33 1.7 - 6.8 TH/uL [facility] # Lymphocytes 3.60 (H) 1.0 - 3.3 TH/uL [facility] # Monocytes 0.93 (H) 0.2 - 0.9 TH/uL [facility] # Eosinophils 0.41 (H) 0.0 - 0.4 TH/uL [facility] # Basophils 0.04 0.0 - 0.1 TH/uL [facility] Specimen Blood Performing Organization Address City/State/Zipcode Ph one Number [facility] [address] [facility] [place] [address] [facility] [address] [facility] [facility] [place] [address], [facility] * Comprehensive Metabolic Panel (12/31/2015 2:59 PM CDT) Sodium 142 133 - 147 MEQ/L [facility] Potassium 3.9 3.5 - 5.3 MEQ/L [facility] Chloride 97 96 - 112 MEQ/L [facility] Carbon Dioxide 35 (H) 20 - 32 MEQ/L [facility] Anion Gap 10 5 - 17 [facility] Calcium 9.0 8.4 - 10.5 mg/dL [facility] Glucose 87 70 - 100 mg/dL [facility] Protein Total 8.3 (H) 6.0 - 8.2 g/dL [facility] Serum [facility] Albumin 4.6 3.5 - 5.0 g/dL [facility] Alkaline 84 42 - 140 IU/L [facility] Phosphatase [facility] Alanine 16 13 - 69 IU/L [facility] Aminotransferas [facility] Aspartate 26 15 - 46 IU/L [facility] Aminotransferas [facility] Bilirubin Total 0.4 0.2 - 1.3 mg/dL [facility] Blood Urea 13 7 - 26 mg/dL [facility] Nitrogen [facility] Creatinine 0.8 0.4 - 1.1 mg/dL [facility] eGFR Female AA 87 60 [...] [place] [address] [facility] [address] [facility] [place] [address], [facility] * XR Chest single view frontal (12/31/2015 2:55 PM CDT) Specimen Impressions Performed At IMPRESSION: LEVI No acute cardiopulmonary process. ATTESTATION STATEMENT: The Staff Radiologist has personally re viewed the images and dictated, reviewed, or edited the final report. READING SITE: [facility] The Staff Radiologist has personally re viewed the images and dictated, reviewed, or edited the final report. Narrative Performed At Patient: ISIAH BENÍTEZ YAIMAJEFFREY Sex#: F # [id number] Jose#: [id number] Location: [facility] SED-21 Procedure Requested: [id number] XR CHEST SINGLE VIEW FRONTAL Reason for [...] ISIAH BENÍTEZ Sex#: F # 1950 Jose#: [id number] Location: [facility] ED SED-21 Procedure Requested: [id number] XR CHEST SINGLE VIEW FRONTAL Reason for [...] or edited the final report. READING SITE: [facility] The Staff Radiologist has personally reviewed the images and dictated, reviewed, or edited the final report. 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: [id number] : 1950 Requested By: LUCIANO FUNES Order Number: [id number] Reading MD: Zackary Lamb Measurements Intervals [place] Rate: 70 P: 43 CA: 140 QRS: 50 QRSD: 100 T: 55 QT: 412 QTc: 445 Interpretive Statements SINUS RHYTHM Compared to ECG 09/14/2015 05:33:24 No significant changes Electronically Signed On 01-01-2016 10:1 5:58 CDT by Zackary Lamb Performing Organization Address [facility] one Number BOBBYCECILIOMERLY documented in this encounter Visit Diagnoses Diagnosis Acute chest pain Unspecified chest pain Essential hypertension Unspecified essential hypertension documented in this encounter Administered Medications Action Date Dose Rate Site Medication Order MAR Action 12/31/2015 2:41 PM CDT 324 mg aspirin chewable tablet 324 mg Given 324 mg, Oral, Once, 12/31/15 at 1439 , For 1 dose, If not given/taken PROVISIONING SPECIALIST and chart., 12/31/2015 3:04 PM CDT 50 mcg fentaNYL (SUBLIMAZE) 50 mcg/mL injection Given 50 mcg 50 mcg, Intravenous, Once, 12/31/15 at 1504, For 1 dose 12/31/2015 3:47 PM CDT 15 mg ketorolac (TORADOL) injection 15 mg Given 15 mg, Intravenous, Once, 12/31/15 a t 1548, For 1 dose documented in this encounter
--- OUTSIDE RECORDS SUMMARY | 2020-03-16 14:14 | XMS REPORT | Encounter Summary ---
Author Author [facility] Organization [facility] Address Unknown Phone Unavailable Care Team Providers Care Race Relations Adviser Name Role Phone Ebony Sharp MD PCP Reason for Visit * Reason Comments Other Encounter Details Care Team Description Date Type Department Rc Rice MD no forwarding address Other 12/24/2015 Refill [facility] [address] [facility] [address] [place], [place] [id number] Social History Date Tobacco Use Types Packs/Day [...]
--- OUTSIDE RECORDS SUMMARY | 2020-03-16 14:14 | XMS REPORT | Encounter Summary ---
Author Author [facility] Organization [facility] Address Unknown Phone Unavailable Care Team Providers Care Agricultural Crop Farm Manager Name Role Phone Ebony Sharp MD PCP Reason for Visit * Reason Comments Medication Refill Encounter Details Care Team Description Date Type Department Ebony Sharp MD [address] [facility] [address] [place], [place] [phone] Medication Refill 12/18/2015 Refill [facility] Prim[facility] Care - [facility] [address] [facility] [address] [place], [place] [phone] Social History Date Tobacco Use Types Packs/Day [...]
--- OUTSIDE RECORDS SUMMARY | 2020-03-16 14:14 | XMS REPORT | Encounter Summary ---
Author Author [facility] Organization [facility] Address Unknown Phone Unavailable Care Team Providers Care Special Forces Communications Sergeant Name Role Phone Ebony Sharp MD PCP Encounter Details Care Team Description Date Type Department Ebony Sharp MD [address] [facility] [address] [place], [place] [phone] Type 2 diabetes mellitus without complic ation (HCC) (Primary Dx) 01/06/2016 Lab [facility] [address] [facility] [address] [place], [place] [id number] Social History Date Tobacco Use Types Packs/Day [...] Address City/State/Zipcode Ph one Number [facility] [address] [address] LABORATORIES documented in this encounter Visit Diagnoses Diagnosis Type 2 diabetes mellitus without compli cation (HCC) documented in this encounter
--- OUTSIDE RECORDS SUMMARY | 2020-03-16 14:14 | XMS REPORT | Encounter Summary ---
Author Author [facility] Organization [facility] Address Unknown Phone Unavailable Care Team Providers Care Police Officer Booking Name Role Phone Ebony Sharp MD PCP Reason for Visit * Reason Comments Medication Refill Encounter Details Care Team Description Date Type Department Ebony Sharp MD [address] [facility] [address] [place], [place] [id number] Medication Refill 12/02/2015 Refill [facility] Prim[facility] Care - [facility] [address] [facility] [address] [place], [place] [phone] Social History Date Tobacco Use Types Packs/Day [...]
--- OUTSIDE RECORDS SUMMARY | 2020-03-16 14:14 | XMS REPORT | Encounter Summary ---
Author Author [facility] Address Unknown Phone Unavailable Care Team Providers Care Mixing Pan Tender Name Role Phone Ebony Sharp MD PCP Encounter Details Care Team Description Date Type Department Adelaida Olivas MD [address] [facility] [address] [place], [place] [address] 01/28/2016 Hist-Transcript Aide Orthopaedi c ion Encounter Specialists [address] [facility] [address] [place], [place] [phone] Social History Date Tobacco Use Types Packs/Day [...] CDT Influenza 08/30/2017 08/30/2019 08/30/2019 1:09 PM BENCH MANAGER Influenza - Rule Out 08/30/2019 08/31/2019 09/17/2019 8:17 AM BENCH MANAGER RSV 08/31/2019 documented as of this encounter
--- OUTSIDE RECORDS SUMMARY | 2020-03-16 14:14 | XMS REPORT | Encounter Summary ---
Author Author [facility] Organization [facility] Address Unknown Phone Unavailable Care Team Providers Care Drop Forger Helper Name Role Phone Ebony Sharp MD PCP Reason for Visit * Reason Comments Follow-up STUDENT NURSE Left Ankle and Reynaldo Knee pain/ Medicare/DOI: 15 years ago/ No Films/ 01/06/2016 MLSTVX: Appt. Reminder (10/2015 06:56 PM) Phone Call - Message Delivered (N=Answered - Entire Message) Encounter Details Care Team Description Date Type Department Adelaida Olivas MD [address] [facility] [address] [place] [address] [phone] 01/28/2016 Hist-Appointmen Aide Orthopaedi c t Specialists [address] [facility] [address] [place] [address] Social History Date Tobacco Use Types Packs/Day [...]
--- OUTSIDE RECORDS SUMMARY | 2020-03-16 14:14 | XMS REPORT | Encounter Summary ---
Author Author [facility] Organization [facility] Address Unknown Phone Unavailable Care Team Providers Care Crabbing Machine Operator Name Role Phone Ebony Sharp MD PCP Encounter Details Care Team Description Date Type Department Ebony Sharp MD [address] [facility] [address] [place], [place] [phone] 01/17/2016 Documentation [facility] y [facility] [address] [facility] [address] [place] [address] Social History Date Tobacco Use [...]
--- OUTSIDE RECORDS SUMMARY | 2020-03-16 14:14 | XMS REPORT | Encounter Summary ---
Author Author [facility] Organization [facility] Address Unknown Phone Unavailable Care Team Providers Care Pediatric Social Worker Name Role Phone Ebony Sharp MD PCP Encounter Details Care Team Description Date Type Department Adelaida Olivas MD [address] [facility] [address] [place] [address] [phone] 01/28/2016 Hist-Other [facility] [address] [place] [address] Social History Date Tobacco Use Types Packs/Day [...]
--- OUTSIDE RECORDS SUMMARY | 2020-03-16 14:14 | XMS REPORT | Encounter Summary ---
Author Author [facility] Organization [facility] Address Unknown Phone Unavailable Care Team Providers Care Family Advocate Name Role Phone Ebony Sharp MD PCP Reason for Visit * Reason Comments Toe Injury Pt got up in the night and stubbed her middle toe on the lt foot, toe is bruised and painful Encounter Details Care Team Description Date Type Department Toe fracture, left, closed, initial encounter (Primary Dx) 01/26/2016 Emergency [facility] [address] [place] [address] Social History Date Tobacco Use Types Packs/Day [...] Discharge Instructions * Instructions* Sheryl Warner RN BURGLAR ALARM ASSEMBLER-C - 01/26/2016 Closed Toe Fracture Your big [...] drainage from the wo undor cast Fever [id number] (38.3C)or higher, or as directed by your health care pro vider [id number] [employer]. [address] [place] [address] 150 7. All rights reserved. This information is [...] FNP-C - 01/26/2016 12:29 PM CDT 01/26/2016 [facility] History Chief Complaint Patient presents with Toe [...] the findings in this report. READING SITE: [facility] The Staff Radiologist has personally [...] ided for comfort. A prescription for 8 Glenhaven was provided, in addition to her c hronic Glenhaven that she takes at home. She can also take ibuprofen as needed for pain and swelling. She was instructed to follow up with orthopedics for reevalu ation. She'll return to the emergency department for new or worsening symptoms or concerns. [facility] ED Clinical Impression SNOMED CT(R) 1. Toe fracture, left, closed, initial encounter FRACTURE OF PHALANX OF FOOT Sheryl Warner RN BURGLAR ALARM ASSEMBLER-C 01/26/16 6035 * Gio Magaña RN - 01/26/2016 12:21 [...] the findings in this report. READING SITE: [facility] The Staff Radiologist has personally re viewed the images and dictated, reviewed, or edited the final report. Narrative Performed At Patient: ISIAH BENÍTEZ Sex#: F # 1950 Jose#: [id number] Location: [place] [address] Procedure Requested: [id number] XR FOOT MIN 3 VIEWS LEFT Reason [...] ISIAH BENÍTEZ Sex#: F # 1950 Jose#: [id number] Location: [facility] SED-27 Procedure Requested: [id number] XR FOOT MIN 3 VIEWS LEFT Reason [...] the findings in this report. READING SITE: [facility] The Staff Radiologist has personally [...]
--- OUTSIDE RECORDS SUMMARY | 2020-03-16 14:14 | XMS REPORT | Encounter Summary ---
Author Author [facility] Organization [facility] Address Unknown Phone Unavailable Care Team Providers Care Crime Investigator Special Agent Name Role Phone Ebony Sharp MD PCP Reason for Visit * Reason Comments Other Encounter Details Care Team Description Date Type Department Ebony Sharp MD [address] [facility] [address] [place] [address] Other 02/02/2016 Refill [facility] y [facility] [address] [facility] [address] [place], [place] [phone] Social History Date Tobacco Use Types Packs/Day [...]
--- OUTSIDE RECORDS SUMMARY | 2020-03-16 14:14 | XMS REPORT | Encounter Summary ---
Author Author [facility] Organization [facility] Address Unknown Phone Unavailable Care Team Providers Care Controller Repairer And Tester Name Role Phone Ebony Sharp MD PCP Encounter Details Care Team Description Date [place] [address] [place], [place] [phone] 11/29/2015 Documentation [facility] [address] [place] [address] Social History Date Tobacco Use Types Packs/Day [...]
--- OUTSIDE RECORDS SUMMARY | 2020-03-16 14:14 | XMS REPORT | Encounter Summary ---
Author Author [facility] Organization [facility] Address Unknown Phone Unavailable Care Team Providers Care Paperback Machine Operator Name Role Phone Ebony Sharp MD PCP Encounter Details Care Team Description Date Type Department Ebony Sharp MD [address] [facility] [address] [place], [place] [phone] 12/26/2015 Documentation [facility] [address] [facility] [address] [place] [address] Social History Date Tobacco Use [...]
--- OUTSIDE RECORDS SUMMARY | 2020-03-16 14:14 | XMS REPORT | Encounter Summary ---
Author Author [facility] Organization [facility] Address Unknown Phone Unavailable Care Team Providers Care Tail Edger Name Role Phone Ebony Sharp MD PCP Encounter Details Care Team Description Date Type Department Adelaida Olivas MD [address] [facility] [address] [place] [address] [phone] 01/28/2016 Hist[facility]Other [facility] [address] [place] [address] Social History Date Tobacco Use Types Packs/Day [...]
--- OUTSIDE RECORDS SUMMARY | 2020-03-16 14:14 | XMS REPORT | Encounter Summary ---
Author Author [facility] Organization [facility] Address Unknown Phone Unavailable Care Team Providers Care Ios Software Engineer Name Role Phone Ebony Sharp MD PCP Reason for Visit * Reason Comments Other Encounter Details Care Team Description Date Type Department Ebony Sharp MD [address] [facility] [address] [place] [address] Other 11/29/2015 Refill [facility] [address] [facility] [address] [place], [place] [phone] Social History Date Tobacco Use Types Packs/Day [...]
--- OUTSIDE RECORDS SUMMARY | 2020-03-16 14:14 | XMS REPORT | Encounter Summary ---
Author Author [facility] Organization [facility] Address Unknown Phone Unavailable Care Team Providers Care Restaurant Greeter Name Role Phone Ebony Sharp MD PCP Encounter Details Care Team Description Date Type Department Ebony Sharp MD [address] [facility] [address] [place], [place] [phone] 12/20/2015 Refill [facility] Primar y Care - East [address] [facility] [address] [place] [address] Social History Date Tobacco Use [...]
--- OUTSIDE RECORDS SUMMARY | 2020-03-16 14:14 | XMS REPORT | Encounter Summary ---
Author Author [facility] Organization [facility] Address Unknown Phone Unavailable Care Team Providers Care Panelboard Tank Pumper Name Role Phone Ebony Sharp MD PCP Reason for Visit * Reason Comments Follow-up bp issues Encounter Details Care Team Description Date Type Department Ebony Sharp MD [address] [facility] [address] [place] [address] Type 2 diabetes mellitus without complic ation (HCC) (Primary Dx); Hyperlipidemia 01/06/2016 Office Visit [facility] [address] [facility] [address] [place] [address] Social History Date Tobacco Use [...] Organization Address City/State/Zipcode Ph one Number [address] [address] LABORATORIES * MAMMOGRAPHY (01/05/2011) Mammogram normal per pt * COLONOSCOPY (12/23/2009) Colonoscopy normal documented in this encounter Visit Diagnoses Diagnosis Type 2 diabetes mellitus without compli cation (HCC) Hyperlipidemia Other and unspecified hyperlipidemia documented in this encounter
--- OUTSIDE RECORDS SUMMARY | 2020-03-16 14:15 | XMS REPORT | Encounter Summary ---
Author Author [facility] Organization [facility] Address Unknown Phone Unavailable Care Team Providers Care Chair Springer Name Role Phone Ebony Sharp MD PCP Encounter Details Care Team Description Date Type Department Ebony Sharp MD [address] [facility] [address] [place], [place] [phone] 10/08/2015 Documentation [facility] y [facility] [address] [facility] [address] [place] [address] Social History Date Tobacco Use [...]
--- OUTSIDE RECORDS SUMMARY | 2020-03-16 14:15 | XMS REPORT | Encounter Summary ---
Author Author [facility] Organization [facility] Address Unknown Phone Unavailable Care Team Providers Care Digital Media Sales Consultant Name Role Phone Ebony Sharp MD PCP Encounter Details Care Team Description Date Type Department Ebony Sharp MD [address] [facility] [address] [place], [place] [phone] 10/23/2015 Documentation [facility] y [facility] [address] [facility] [address] [place] [address] Social History Date Tobacco Use [...]
--- OUTSIDE RECORDS SUMMARY | 2020-03-16 14:15 | XMS REPORT | Encounter Summary ---
Author Author [facility] Organization [facility] Address Unknown Phone Unavailable Care Team Providers Care Air Brake Adjuster Name Role Phone Yrn Sharp MD PCP Reason for Referral * Diagnostic Imaging (Routine) Referred By Contact Referred To Contact Status Reason Specialty Diagnoses / Procedures Yrn Sharp MD [address] [facility] [address] [place] [address] Sle Cv Lab [address] [facility] [place] [id number] Closed Cardiology Diagnoses Essential hypertension P rocedures Echo Complete with Doppler and Color Flow * Consultation (Elective) Referred By Contact Referred To Contact Status Reason Specialty Diagnoses / Procedures Yrn Sharp MD [address] [facility] [address] [place] [address] Demond Jose MD [address] [facility] [address] [place] [address] Closed Specialty Services Pain Management Diagnoses Required Chronic pain Reason for Visit * Reason Comments Diabetes Hypertension Encounter Details Care Team Description Date Type Department Yrn Sharp MD [address] [facility] [address] [place] [address] [phone] Type 2 diabetes mellitus without complic ation (HCC) (Primary Dx); COPD (chronic obstructive pulmonary disease) (HCC); Essential hypertension; Hyperlipidemia; Chronic pain; Elevated MCV; MATA (generalized anxiety disorder); Hair loss; Vaginal discharge 09/24/2015 Office Visit [facility] [address] [facility] [address] [place] [address] Social History Date Tobacco Use Types Packs/Day [...] Comments Vital Sign 114/82 09/24/2015 10:50 AM ROLL WINDER LAS Blood Pressure 102 09/24/2015 10:50 AM ROLL WINDER Regular Pulse - - Temperature - - Respiratory Rate - - Oxygen Saturation - - Inhaled Oxygen Concentration 90.3 kg (199 lb) 09/24/2015 10:50 AM ROLL WINDER Weight - - Height 38.86 09/14/2015 5:31 AM ROLL WINDER Body Mass Index documented in this encounter Progress Notes * Yrn Sharp MD - 09/24/2015 11:07 AM ROLL WINDER Patient ID: Isiah Benítez is a 65 [...] She has had it for a year. WINDER documented in this encounter Plan of [...] ISIAH BENÍTEZ Date: 05/08/2016 07:34 Chart #: [id number] : 1950 Location: [facility] OP Sono: hannah Age: 65 Gender: F Referring: YRN SHARP MD Room #: OP Fellow: Indication:Essential (primary) hypert ension Procedure: 53991 Complete Echo 2D/Col orflow/Doppler BP: 140 / [...] ISIAH BENÍTEZ Date: 05/08/2016 07:34 Chart #: [id number] : 1950 Location: [facility] OP Sono: hannah Age: 65 Gender: F Referring: YRN SHARP MD Room #: OP Fellow: Indication:Essential (primary) hypertension Procedure: [id number] Complete Echo 2D/Colorflow/Doppler BP: 140 / 86 [...] 08 May 2016 11:13 Performing Organization Address [facility] Ph one Number PROSOLV * Vitamin B12 (09/24/2015 11:55 AM ROLL WINDER) VITAMIN B12 436 239 - 931 pg/mL [facility] LABORATORIES Specimen Blood Performing Organization Address City/[facility] Ph one Number [address] [address] LABORATORIES * Thyroid Stimulating Hormone (09/24/2015 11:55 AM ROLL WINDER) Thyroid 0.11 (L) 0.47 - 4.68 uIU/mL [facility] Hormone LABORATORIES Specimen Performing Organization Address [facility] one Number [address] [address] LABORATORIES * Lipid Panel (09/24/2015 11:55 AM ROLL WINDER) Cholesterol 266 (H) 100 - 200 mg/dL [facility] HDL Cholesterol 83 40 - 110 mg/dL [facility] Non-HDL 183 (H) 0 - 130 mg/dL [facility] Cholesterol [facility] Triglycerides 203 (H) 0 - 150 mg/dL [facility] LDL Cholesterol 142 (H) 0 - 99 mg/dL [facility] Cholesterol/HDL 3.2 0.0 - 4.[address] [facility] Ratio [facility]OR[facility]IES Specimen Performing Organization Address [facility] one Number [address] [address] LABORATORIES * Hemoglobin A1C (09/24/2015 11:55 AM ROLL WINDER) Hemoglobin A1C 7.0 (H) 4.0 - 5.6 % [facility] Comment: REGIONAL Non-diabetic 4.0 - LABORATORIES 5.6 % Prediabetes 5.7 - 6.4 % Diabetes >= 6.5 % Specimen Performing Organization Address [facility] one Number [address] [address] LABORATORIES * Comprehensive Metabolic Panel (09/24/2015 11:55 AM ROLL WINDER) Sodium 141 133 - 147 MEQ/L [facility]IES Potassium 4.2 3.5 - 5.3 MEQ/L [facility] Chloride 101 96 - 112 MEQ/L [facility] Carbon Dioxide 29 20 - 32 MEQ/L [facility] Anion Gap 10 5 - 17 [facility] Calcium 9.7 8.4 - 10.5 mg/dL [facility] Glucose 141 (H) 70 - 100 mg/dL [facility] Protein Total 7.7 6.0 - 8.2 g/dL [facility] Serum [facility] Albumin 4.4 3.5 - 5.0 g/dL [facility] Alkaline 100 42 - 140 IU/L [facility] Phosphatase [facility] Alanine 37 13 - 69 IU/L [facility] Aminotransferas [facility] e LABORATORIES Aspartate 28 15 - 46 IU/L [facility] LAB[facility]ATORIES Bilirubin Total 0.6 0.2 - 1.3 mg/dL [facility] Blood Urea 18 7 - 26 mg/dL [facility] Nitrogen [facility] Creatinine 0.7 0.4 - 1.1 mg/dL [facility] eGFR Female AA 101 60 - 200 [facility] Comment: REGIONAL Chronic Kidney Disease less LABORATORIES than 60 mL/min/1.73 sq.m Kidney failure less than 15 mL/min/1.73 sq.m eGFR Female 85 60 - 200 [facility] Non-AA Comment: REGIONAL Chronic Kidney Disease less LABORATORIES than 60 mL/min/1.73 sq.m Kidney failure less than 15 mL/min/1.73 sq.m Specimen Performing Organization Address City/State/[facility] Ph one Number [address] [address] LABORATORIES * CBC and Diff (manual diff if necessary) (09/24/2015 11:55 AM ROLL WINDER) WBC 11.41 (H) 4.00 - 11.00 TH/uL [facility] RBC 4.64 4.00 - 5.00 MIL/uL [facility] Hemoglobin 15.2 (H) 12.0 - 15.0 g/dL [facility] Hematocrit 46 (H) 36 - 45 % [facility] MCV 99 80 - 99 fL [facility] MCH 33 27 - 34 pg [facility] MCHC 33 32 - 36 % [facility] RDW 14.3 9.0 - 14.5 % [facility] Platelet Count 221 140 - 400 TH/uL [facility] MPV 9.8 9.4 - 12.3 fL [facility] Nucleated RBCs 0 0 - 0 /100 [facility] % Neutrophils 66 45 - 78 % [facility] %Lymphocytes 23 15 - 47 % [facility] %Monocytes 8 0 - 12 % [facility] %Eosinophils 2 0 - 7 % [facility] %Basophils 1 0 - 2 % [facility] % Imm Grans 0 0 - 1 % [facility] # Granulocytes 7.59 (H) 1.70 - 6.80 TH/uL [facility] # Lymphocytes 2.65 1.00 - 3.30 TH/uL [facility] # Monocytes 0.95 (H) 0.20 - 0.90 TH/uL [facility] # Eosinophils 0.17 0.00 - 0.40 TH/uL [facility] # Basophils 0.06 0.00 - 0.10 TH/uL [facility] Specimen Performing Organization Address City/State/Zipcode Ph one Number [facility] [address] [place] [address] LABORATORIES documented in this encounter Visit Diagnoses [...]
--- OUTSIDE RECORDS SUMMARY | 2020-03-16 14:15 | XMS REPORT | Encounter Summary ---
Author Author [facility] Organization [facility] Address Unknown Phone Unavailable Care Team Providers Care Cafe Worker Name Role Phone Ebony Sharp MD PCP Encounter Details Care Team Description Date Type Department Ebony Sharp MD [address] [facility] [address] [place] [address] 11/07/2015 [facility] [address] [facility] [address] [place] [address] Social History Date Tobacco Use [...]
--- OUTSIDE RECORDS SUMMARY | 2020-03-16 14:15 | XMS REPORT | Encounter Summary ---
Author Author [facility] Organization [facility] Address Unknown Phone Unavailable Care Team Providers Care Fish Worm Grower Name Role Phone Ebony Sharp MD PCP Encounter Details Care Team Description Date Type Department Ebony Sharp MD [address] [facility] [address] [place], [place] [id number] Essential hypertension; Hyperlipidemia; Type 2 diabetes mellitus without complication (HCC); Elevated MCV 09/24/2015 Lab [facility] Primar y Care - [facility] [place] [address] [facility] [address] [facility] [place], [place] [id number] Social History Date Tobacco Use Types Packs/Day [...] B12 Routine 09/24/2015 Elevated MCV 11:55 AM PLASTIC INSTALLER THYROID STIMULATING Routine 09/24/2015 Essential hypertension HORMONE 11:55 AM PLASTIC INSTALLER LIPID PANEL Routine 09/24/2015 Hyperlipidemia 11:55 AM PLASTIC INSTALLER HEMOGLOBIN A1C Routine 09/24/2015 Type 2 diabetes mellitus 11:55 AM PLASTIC INSTALLER without complication (HCC) COMPREHENSIVE METABOLIC Routine 09/24/2015 Essent ial hypertension PANEL 11:55 AM PLASTIC INSTALLER Hyperlipidemia CBC AND DIFF (MANUAL DIFF Routine 09/24/2015 Esse ntial hypertension IF NECESSARY) 11:55 AM PLASTIC INSTALLER URINALYSIS MICROSCOPIC Routine 09/24/2015 ONLY 11:46 AM PLASTIC INSTALLER URINALYSIS REFLEX Routine 09/24/2015 11:46 AM PLASTIC INSTALLER MICROALBUMIN RANDOM Routine 09/24/2015 11:46 AM PLASTIC INSTALLER CULTURE, URINE Routine 09/24/2015 11:46 AM PLASTIC INSTALLER documented in this encounter Results * Vitamin B12 (09/24/2015 11:55 AM PLASTIC INSTALLER) VITAMIN B12 436 239 - 931 pg/mL [facility] Specimen Blood Performing Organization Address [facility] one Number [address] [address] LABORATORIES * Thyroid Stimulating Hormone (09/24/2015 11:55 AM PLASTIC INSTALLER) Thyroid 0.11 (L) 0.47 - 4.68 uIU/mL [facility] Hormone LABORATORIES Specimen Performing Organization Address [facility] Ph one Number [address] [phone] LABORATORIES * Lipid Panel (09/24/2015 11:55 AM PLASTIC INSTALLER) Cholesterol 266 (H) 100 - 200 mg/dL [facility] LABORATORIES HDL Cholesterol 83 40 - 110 mg/dL [facility] LABORATORIES Non-HDL 183 (H) 0 - 130 mg/dL [facility] Cholesterol REGIONAL LABORATORIES Triglycerides 203 (H) 0 - 150 mg/dL [facility]IES LDL Cholesterol 142 (H) 0 - 99 mg/dL [facility]IES Cholesterol/HDL 3.2 0.0 - 4.5 [facility] Ratio REGIONAL LABORATORIES Specimen Performing Organization Address [facility] Ph one Number [address] [address] LABORATORIES * Hemoglobin A1C (09/24/2015 11:55 AM PLASTIC INSTALLER) Hemoglobin A1C 7.0 (H) 4.0 - 5.6 % [facility] Comment: REGIONAL Non-diabetic 4.0 - LABORATORIES 5.6 % Prediabetes 5.7 - 6.4 % Diabetes >= 6.5 % Specimen Performing Organization Address City/State/Zipcode Ph one Number [facility] [address] [place] [address] LABORATORIES * Comprehensive Metabolic Panel (09/24/2015 11:55 AM PLASTIC INSTALLER) Sodium 141 133 - 147 MEQ/L [facility] Potassium 4.2 3.5 - 5.3 MEQ/L [facility] Chloride 101 96 - 112 MEQ/L [facility] Carbon Dioxide 29 20 - 32 MEQ/L [facility] Anion Gap 10 5 - 17 [facility] Calcium 9.7 8.4 - 10.5 mg/dL [facility] Glucose 141 (H) 70 - 100 mg/dL [facility] Protein Total 7.7 6.0 - 8.2 g/dL [facility] Serum [facility]IES Albumin 4.4 3.5 - 5.0 g/dL [facility] Alkaline 100 42 - 140 IU/L [facility] Phosphatase [facility] Alanine 37 13 - 69 IU/L [facility] Aminotransferas [facility] e LABORATORIES Aspartate 28 15 - 46 IU/L [facility] e LABORATORIES Bilirubin Total 0.6 0.2 - 1.3 mg/dL [facility] Blood Urea 18 7 - 26 mg/dL [facility] Nitrogen [facility]IES Creatinine 0.7 0.4 - 1.1 mg/dL [facility] eGFR Female AA 101 60 - 200 [facility] Comment: REGIONAL Chronic Kidney Disease less LABORATORIES than 60 mL/min/1.73 sq.m Kidney failure less than 15 mL/min/1.73 sq.m eGFR Female 85 60 - 200 [facility] Non-AA Comment: REGIONAL Chronic Kidney Disease less LABORATORIES than 60 mL/min/1.73 sq.m Kidney failure less than 15 mL/min/1.73 sq.m Specimen Performing Organization Address City/[facility] Ph one Number [facility] [address] [place] [address] LABORATORIES * CBC and Diff (manual diff if necessary) (09/24/2015 11:55 AM PLASTIC INSTALLER) WBC 11.41 (H) 4.00 - 11.00 TH/uL [facility] LABORATORIES RBC 4.64 4.00 - 5.00 MIL/uL [facility] Hemoglobin 15.2 (H) 12.0 - 15.0 g/dL [facility] Hematocrit 46 (H) 36 - 45 % [facility] MCV 99 80 - 99 fL [facility] MCH 33 27 - 34 pg [facility] MCHC 33 32 - 36 % [facility] RDW 14.3 9.0 - 14.5 % [facility] Platelet Count 221 140 - 400 TH/uL [facility] MPV 9.8 9.4 - 12.3 fL [facility] Nucleated RBCs 0 0 - 0 /100 [facility] % Neutrophils 66 45 - 78 % [facility] %Lymphocytes 23 15 - 47 % [facility] %Monocytes 8 0 - 12 % [facility] %Eosinophils 2 0 - 7 % [facility] %Basophils 1 0 - 2 % [facility] % Imm Grans 0 0 - 1 % [facility] # Granulocytes 7.59 (H) 1.70 - 6.80 TH/uL [facility] LABORATORIES # Lymphocytes 2.65 1.00 - 3.30 TH/uL [facility] LABORATORIES # Monocytes 0.95 (H) 0.20 - 0.90 TH/uL [facility] LABORATORIES # Eosinophils 0.17 0.00 - 0.40 TH/uL [facility] LABORATORIES # Basophils 0.06 0.00 - 0.10 TH/uL [facility] LABORATORIES Specimen Performing Organization Address City/State/Zipcode Ph one Number [facility] [address] [place] [address] LABORATORIES * Culture, Urine (09/24/2015 11:46 AM PLASTIC INSTALLER) Culture Result [facility] Isolate 1 >100,000 Cfu/ml (A) [facility] Isolate 1 Beta Hemolytic Streptococcus [facility] Group B (A) REGIONAL LABORATORIES Isolate 1 No susceptibility testing done [facility] on this isolate (A) REGIONAL LABORATORIES Specimen Performing Organization Address [facility] one Number [facility] [address] [place] [address] LABORATORIES * Urinalysis Microscopic Only (09/24/2015 11:46 AM PLASTIC INSTALLER) Microscopic RBC 1 - 5 1 - 5 [facility] Urine REG[facility]AL LABORATORIES Microscopic WBC >40 (A) 1 - 5 [facility] Urine [facility] LAB[facility]IES Epithelial Absent Absent [facility] Cells [facility] LAB[facility]IES Hyaline Cast Absent Absent [facility] Bacteria Absent Absent [facility] Specimen Performing Organization Address [facility] one Number [facility] [address] [place] [address] LABORATORIES * Microalbumin Random (09/24/2015 11:46 AM PLASTIC INSTALLER) Creatinine 178.2 mg/dL [facility] Urine Random REG[facility]AL LABORATORIES Microalbumin 7.20 mg/dL [facility] mg/dl [facility] LAB[facility]IES Microalbumin/Cr 40.40 (H) 0.00 - 30.00 ug/mg [facility] eatinine Ratio REGIONAL LABORATORIES Specimen Performing Organization Address [facility] one Number [facility] [address] [place] [address] LABORATORIES * Urinalysis Reflex (09/24/2015 11:46 AM PLASTIC INSTALLER) Appearance, Yellow [facility] Urine REG[facility]AL LABOR[facility]IES Glucose Urine Negative Negative mg/dL [facility] Bilirubin Urine Negative Negative [facility] Ketones Urine Negative Negative mg/dL [facility] Specific 1.018 1.001 - 1.030 [facility] Sharon, UA [facility] Hemoglobin Negative Negative [facility] Urine [facility] PH Urine 6.0 5.0 - 8.0 [facility] LABORATORIES Protein Urine 30 (A) Negative mg/dL [facility] Qual [facility] Urobilinogen Negative Negative EU/dL [facility] Urine [facility] Nitrite Urine NegativeComment: Culture Negative [facility] Ordered REG[facility]AL LABORATORIES Leukocyte Positive (A) Negative [facility] Esterase [facility]IES Specimen Performing Organization Address City/State/[facility] Ph one Number [facility] [address] [place] [address] LABORATORIES documented in this encounter Visit Diagnoses Diagnosis Essential hypertension Unspecified essential hypertension Hyperlipidemia Other and unspecified hyperlipidemia Type 2 diabetes mellitus without compli cation (HCC) Elevated MCV Other abnormality of red blood cells documented in this encounter
--- OUTSIDE RECORDS SUMMARY | 2020-03-16 14:15 | XMS REPORT | Encounter Summary ---
Author Author [facility] Organization [facility] Address Unknown Phone Unavailable Care Team Providers Care Textile Finisher Name Role Phone Ebony Sharp MD PCP Encounter Details Care Team Description Date Type Department Ebony Sharp MD [address] [facility] [address] [place], [place] [id number] Acute cystitis without hematuria (Primar y Dx) 10/04/2015 Orders Only [facility] Primar y Care - [place] [address] [facility] [address] [place] [address] Social History Date Tobacco Use Types [...]
--- OUTSIDE RECORDS SUMMARY | 2020-03-16 14:15 | XMS REPORT | Encounter Summary ---
Author Author [facility] Organization [facility] Address Unknown Phone Unavailable Care Team Providers Care Kid Club Attendant Name Role Phone Ebony Sharp MD PCP Encounter Details Care Team Description Date Type Department Ebony Sharp MD [address] [facility] [address] [place] [address] Health care maintenance (Primary Dx) 09/25/2015 Orders Only [facility] Primar y Care - [place] [address] [facility] [address] [place], [place] [phone] Social History Date Tobacco Use Types Packs/Day [...] Free 1.1 0.8 - 2.2 ng/dL [facility] LABORATORIES Specimen Blood Performing Organization Address City/[facility] Ph one Number [facility] [address] [place] [phone] LABORATORIES * Thyroid Stimulating Hormone (12/06/2015 12:42 PM CDT) Thyroid 0.27 (L) 0.47 - 4.68 uIU/mL [facility] Hormone LABORATORIES Specimen Blood Performing Organization Address City/State/Zipcode Ph one Number [address] [address] LABORATORIES documented in this encounter Visit Diagnoses Diagnosis Health care maintenance documented in this encounter
--- OUTSIDE RECORDS SUMMARY | 2020-03-16 14:15 | XMS REPORT | Encounter Summary ---
Author Author [facility] Organization [facility] Address Unknown Phone Unavailable Care Team Providers Care Reservoir Engineer Name Role Phone Ebony Sharp MD PCP Reason for Visit * Diagnostic Imaging (Routine) Referred By Contact Referred To Contact Status Reason Specialty Diagnoses / Procedures Ebony Sharp MD [address] [facility] [address] [place] [address] [address] [place] [address] Closed Radiology Diagnoses Vaginal discharge P rocedures US Pelvis complete US Pelvis complete and transvaginal P Encounter Details Care Team Description Date Type Department Ebony Sharp MD 20 [facility] [address] [place] [id number] Vaginal discharge 10/09/2015 [facility] [address] [place] [id number] Social History Date Tobacco Use Types Packs/Day [...] Teo George MD - 10/10/2015 5:03 PM CONTACT ACID PLANT OPERATOR Quick Note: Normal pelvic ultrasound xray result and please notify. ACT ACID PLANT OPERATOR documented in this encounter Plan of Treatment Not on filedocumented as of this encounter Procedures Comments Procedure Name Priority Date/Time Associated Diag nosis US PELVIS TRANSABD Routine 10/09/2015 Vaginal dis charge COMPLETE 12:40 PM CONTACT ACID PLANT OPERATOR documented in this encounter Results * US Pelvis complete (10/09/2015 12:40 PM CONTACT ACID PLANT OPERATOR) Specimen Impressions Performed At Impression: LEVI No pelvic mass or fluid collection. Hysterectomy. READING SITE: [facility] Narrative Performed At Patient: ISIAH PATTEN Sex#: F # [id number] Jose#: Location: [facility] Procedure Requested: [id number] US PELVI S COMPLETE Reason for Exam: Vaginal discharge Exam Ordered: 10/09/2015 12 22 Exam Date/Time: 10/09/2015 124 0 Check-in Date/Time: 10/09/2015 1227 US PELVIS COMPLETE Indication: Vaginal discharge Technique: Complete pelvic ultrasound performed. Patient refused transvaginal ultrasound Findings: Hysterectomy. Ovaries are not visualized. No pelvic mass or ascites. No pelvic fluid collection. Procedure Note Interface, Rad Results In - 10/09/2015 1:19 PM CONTACT ACID PLANT OPERATOR Patient: ISIAH PATTEN Sex#: F # [id number] Jose#: Location: [facility] Procedure Requested: [id number] US PELVIS COMPLETE Reason for Exam: Vaginal discharge Exam Ordered: 10/09/2015 1222 Exam Date/Time: 10/09/2015 1240 Check-in Date/Time: 10/09/2015 1227 US PELVIS COMPLETE Indication: Vaginal discharge Technique: Complete pelvic ultrasound performed. Patient refused transvaginal ultrasound Findings: Hysterectomy. Ovaries are not visualized. No pelvic mass or ascites. No pelvic fluid collection. Impression: No pelvic mass or fluid collection. Hysterectomy. READING SITE: [facility] Performing Organization Address City/State/Zipcode Ph one Number LEVI documented in this encounter Visit Diagnoses Diagnosis Vaginal discharge Leukorrhea, not specified as infective documented in this encounter
--- OUTSIDE RECORDS SUMMARY | 2020-03-16 14:15 | XMS REPORT | Encounter Summary ---
Author Author [facility] Organization [facility] Address Unknown Phone Unavailable Care Team Providers Care Refrigerated Cargo Clerk Name Role Phone Ebony Sharp MD [...] Date Type Department Antonio Mayer, [address] [facility] [place] [address] Dyspnea (Primary Dx); COPD (chronic obstructive pulmonary disease) (HCC) 09/14/2015 [facility] [address] [place] [address] Social History Date Tobacco Use [...] Comments Vital Sign 166/90 09/14/2015 11:32 AM TOP COATER Blood Pressure 84 09/14/2015 11:32 AM TOP COATER Pulse 36.8 C (98.3 F) 09/14/2015 5:31 AM TOP COATER Temperature 22 09/14/2015 11:32 AM TOP COATER Respiratory Rate 98% 09/14/2015 11:32 AM TOP COATER Oxygen Saturation - - Inhaled Oxygen Concentration 92.5 kg (204 lb) 09/14/2015 5:31 AM TOP COATER Weight 152.4 cm (5') 09/14/2015 5:31 AM TOP COATER Height 39.84 09/14/2015 5:31 AM TOP COATER Body Mass Index documented in this encounter [...] do for your COPD and your ov [facility]. Join a stop-smoking program. There are even [...] local hospital about programs in your area. 4781-[address] [place] [address], [place], [place] [address]. All rights reserved. This information is [...] * Mala Lynn - 09/14/2015 11:06 AM TOP COATER SW received phone call from Luigi with [facility] and he stated that all of pt's equipment has been delivered to pt's home. RAYMOND called ED to advise of the above and pt okay to d/c to home from social servi sudeep perspective. COATER documented in this encounter Consult Notes * Mala Lynn - 09/14/2015 9:36 AM TOP COATER SW received phone call from ED advising [...] with pt's son-in-law who stated provider is [facility]. RAYMOND called Darvin Valadez with [facility] and he stated that Yannick is manager education. RAYMOND called Yannick at [phone] and left vm. RAYMOND called Luigi Martinez, Bindery Machine Operator with [facility] and explained the situat ion. He stated he will have a pick up and delivery driver out to pt's home within the next hour to d vaniabrianne new concentrator. He will call this worker back as soon as he has spoken with pick up and delivery driver. RAYMOND called pt's home and spoke with pt's dtr to advise of the abov e. She will be home to receive the equipment. COATER documented in this encounter ED Notes * Susy Wilson, RN - 09/14/2015 11:55 AM TOP COATER PT UP IN ROOM WITHOUT DIFF. RESP UNLABORED. COATER * Susy Wilson RN - 09/14/2015 11:35 AM TOP COATER LUNCH TRAY GIVEN. COATER * Yuki Goel, RN - 09/14/2015 11:27 AM TOP COATER Spoke with pt son, David, reported that oxygen has been delivered to house and is set up ready for patient use. Reports patient does not usually use portable tank and only lives 15 minutes from hospital. Ok per Dr. Mayer, ready for dischar ge. COATER * Calvin Garcia - 09/14/2015 8:22 AM TOP COATER Social work called. No answer. Voice message left to call ED. COATER * Yuki Goel, AADM - 09/14/2015 8:20 AM TOP COATER Social work called. Message left to call ED. COATER * Antonio Mayer DO - 09/14/2015 7:28 AM TOP COATER 09/14/2015 [facility] History Chief Complaint Patient presents with Shortness of Breath pt reports hx of COPD and over the past three days has had increased SOA. pt r eports wearing O2 at home but has not had any to wear since yesterday. pt 86% on RA HPI 65-year-old Afro-Burmese female with history of oxygen dependent COPD [...] Bibasilar subsegmental atelectasis. No consolidation. READING SITE: [facility] ATTESTATION STATEMENT: The staff radiologist has personally reviewed the images and dictated, reviewed or edited the final report. Ebony Sharp MD [address] [facility] 200 [facility] [address] ED Clinical Impression SNOMED CT(R) 1. Dyspnea DYSPNEA 2. COPD (chronic obstructive pulmonary disease) CHRONIC OBSTRUCTIVE LUNG DISEAS E Antonio Mayre DO 09/14/15 1124 Antonio Mayer DO 09/14/15 1130 COATER * Marisa Rodas RN - 09/14/2015 5:34 AM TOP COATER pt reports hx of COPD and over the past three days has had increased SOA. pt rep orts wearing O2 at home but has not had any to wear since yesterday. pt 86% on R A COATER documented in this encounter Plan of Treatment Not on filedocumented as of this encounter Procedures Comments Procedure Name Priority Date/Time Associated Diag nosis OXYGEN STAT 09/14/2015 10:08 AM TOP COATER CBC AND DIFF (MANUAL DIFF STAT 09/14/2015 IF NECESSARY) 7:05 AM TOP COATER BASIC METABOLIC PANEL STAT 09/14/2015 7:05 AM TOP COATER XR CHEST 2 VIEWS (PA AND STAT 09/14/2015 LATERAL) 6:15 AM TOP COATER TROPONIN STAT 09/14/2015 5:50 AM TOP COATER OXYGEN STAT 09/14/2015 5:38 AM TOP COATER PULSE OXIMETRY, STAT 09/14/2015 CONTINUOUS 5:38 AM TOP COATER ECG STAT 09/14/2015 5:33 AM TOP COATER documented in this encounter Results * Basic Metabolic Panel (09/14/2015 7:05 AM TOP COATER) [facility] Signature Sodium 142 133 - 147 [facility] Potassium 4.5 3.5 - 5.3 [facility] Chloride 99 96 - 112 [facility] Carbon Dioxide 35 (H) 20 - 32 [facility] Anion Gap 8 5 - 17 [facility] Calcium 8.8 8.4 - 10.5 mg/dL [facility] Glucose 145 (H) 70 - 100 mg/dL [facility] Blood Urea 18 7 - 26 mg/dL [facility] Nitrogen [facility] Creatinine 0.7 0.4 - 1.1 mg/dL [facility] eGFR Female AA 101 60 - 200 [facility] Comment: [facility] MARBIN'S Chronic Kidney Disease less [facility] than 60 mL/min/1.73 sq.m Kidney failure less than 15 mL/min/1.73 sq.m eGFR Female 85 60 - 200 [facility] Non-AA Comment: ALBERT ZAZUETA'S Chronic Kidney Disease less [facility] than 60 mL/min/1.73 sq.m Kidney failure less than 15 mL/min/1.73 sq.m Specimen Blood Narrative Performed At This order is a replacement of the rejected order wit h accession number [facility] - [id number] [facility] Performing Organization Address City/State/Zipcode Ph one Number [facility] [address] [facility] [place] [id number] [facility] [address] [facility] [place] [address], [facility] * CBC and Diff (manual diff if necessary) (09/14/2015 7:05 AM TOP COATER) WBC 7.87 4.00 - 11.00 TH/uL [facility] [...] 1.7 - 6.8 TH/uL [facility] # Lymphocytes 1.36 1.0 - 3.3 TH/uL [facility] # Monocytes 0.44 0.2 - 0.9 TH/uL [facility] # Eosinophils 0.08 0.0 - 0.4 TH/uL [facility] # Basophils 0.02 0.0 - 0.1 TH/uL [facility] Specimen Blood Narrative Performed At This order is a replacement of the rejected order wit h accession number [facility] [id number] [facility] Performing Organization Address City/State/Zipcode Ph one Number [facility] [address] [place] [address] [facility] [address] [facility] [place] [place] [address], [facility] * XR Chest 2 views (PA and lateral) (09/14/2015 6:15 AM TOP COATER) Specimen Impressions Performed At IMPRESSION: Low lung volume. Bibasilar subsegmental a telectasis. No ABIKESSON consolidation. READING SITE: [facility] ATTESTATION STATEMENT: The staff radiologist has personally re viewed the images and dictated, reviewed or edited the final report. Narrative Performed At Patient: ISIAH BENÍTEZ Sex#: F # [id number] Jose#: Location: [place] [address] Procedure Requested: [id number] XR CHEST 2 VIEWS (PA AND LATERAL) [...] Rad Results In - 09/14/2015 10:55 AM TOP COATER Patient: ISIAH BENÍTEZ Sex#: F # 1950 Jose#: Location: [place] [address] Procedure Requested: [id number] XR CHEST 2 VIEWS (PA AND LATERAL) [...] Bibasilar subsegmental atelectasis. No consolidation. READING SITE: [facility] ATTESTATION STATEMENT: The staff radiologist has personally reviewed the images and dictated, reviewed or edited the final report. Performing Organization Address City/State/[facility] Ph one Number [facility] * Troponin (09/14/2015 5:50 AM TOP COATER) Troponin <0.01 0.00 - 0.03 ng/mL [facility]az[facility] Comment: ALBERT AGUSTINS Troponin Value [facility] Interpretation 0.00 - 0.03 Healthy 0.04 - 0.12 Increased Cardiac Risk >0.12 Myocardial Infarction Troponin may not become elevated until 6 to 8 hours after onset of symptoms. Specimen Blood Performing Organization Address City/State/Zipcode Ph one Number [facility] [address] [facility] [place] [address] [facility] [address] [place] [address], [facility] * Electrocardiogram (ECG) (09/14/2015 5:33 AM TOP COATER) Specimen Narrative Performed At [facility] ED Test Date: 2015-09-14 Pat Name: ISIAH BENÍTEZ Department: ERS Room: SED Gender: Female Manager Casino: [id number] Requested By: CHAVA ORTIZ Order Number: [id number] Reading MD: Medardo Alcaraz Measurements Intervals [place] Rate: 71 P: 51 SD: 140 QRS: 42 QRSD: 98 T: 49 QT: 400 QTc: 435 Interpretive Statements SINUS RHYTHM Compared to ECG 09/05/2015 15:51:41 No significant changes Electronically Signed On 09-15-2015 17:1 3:19 TOP COATER by Medardo Alcaraz Performing Organization Address City/State/Zipcode Ph one Number [facility] documented in this encounter Visit Diagnoses Diagnosis Dyspnea Other dyspnea and respiratory abnormali ty COPD (chronic obstructive pulmonary dis ease) (HCC) Chronic airway obstruction, not elsewhe re classified documented in this encounter Administered Medications Action Date Dose Rate Site Medication Order MAR Action 09/14/2015 7:26 AM TOP COATER 100 mcg fentaNYL (SUBLIMAZE) 50 mcg/mL injection Given 100 mcg 100 mcg, Intravenous, Once, 09/14/15 at 0624, For 1 dose 09/14/2015 7:37 AM TOP COATER 10 mg hydrALAZINE (APRESOLINE) injection 10 mg Given 10 mg, Intravenous, Once, 09/14/15 a t 0624, For 1 dose 09/14/2015 5:42 AM TOP COATER 3 mL ipratropium-albuterol (DUO-NEB) 0.5-3 Given mg/3 mL nebulizer solution 3 mL 3 mL, Inhalation, Once, 09/14/15 at 0534, For 1 dose 09/14/2015 10:02 AM TOP COATER 3 mL ipratropium-albuterol (DUO-NEB) 0.5-3 Given mg/3 mL nebulizer solution 3 mL 3 mL, Inhalation, Once, 09/14/15 at 0928, For 1 dose documented in this encounter"
--- OUTSIDE RECORDS SUMMARY | 2020-03-16 14:15 | XMS REPORT | Encounter Summary ---
Author Author [facility] Organization [facility] Address Unknown Phone Unavailable Care Team Providers Care Appliance Fixer Name Role Phone Ebony Sharp MD PCP Reason for Visit * Reason Comments Medication Refill Encounter Details Care Team Description Date Type Department Ebony Sharp MD [address] [facility] [address] [place], [place] [phone] Medication Refill 10/15/2015 [facility] [address] [facility] [address] [place], [place] [id number] Social History Date Tobacco Use Types Packs/Day [...] Comfort Alatorre MA - 10/16/2015 12:45 PM INSTITUTIONAL RESEARCH COORDINATOR Enter prescription ITUTIONAL RESEARCH COORDINATOR * Telephone Encounter - Tiburcio Wagoner MD - 10/15/2015 5:08 PM INSTITUTIONAL RESEARCH COORDINATOR Okay to fill ITUTIONAL RESEARCH COORDINATOR * Telephone Encounter - Aniya Rosa MA - 10/15/2015 4:55 PM INSTITUTIONAL RESEARCH COORDINATOR Patient is new with Dr Sharp, she is requesting a rescue inhaler. Pro air inhal er. She said she had one with her previous Dr and needs a new rx. ITUTIONAL RESEARCH COORDINATOR documented in this encounter Plan of Treatment Not on filedocumented as of this encounter Visit Diagnoses Not on filedocumented in this encounter
--- OUTSIDE RECORDS SUMMARY | 2020-03-16 14:15 | XMS REPORT | Encounter Summary ---
Author Author [facility] Organization [facility] Address Unknown Phone Unavailable Care Team Providers Care Military Pay Clerk Name Role Phone Ebony Sharp MD PCP Reason for Visit * Reason Comments Medication Refill Encounter Details Care Team Description Date Type Department Tiburcio Wagoner MD [address] [facility] [address] [place], [place] [id number] Medication Refill 10/16/2015 Refill [facility] Care - [facility] [address] [facility] [address] [place], [place] [phone] Social History Date Tobacco Use Types Packs/Day [...]
--- OUTSIDE RECORDS SUMMARY | 2020-03-16 14:16 | XMS REPORT | Encounter Summary ---
Author Author [facility] Organization [facility] Address Unknown Phone Unavailable Care Team Providers Care Wet Char Conveyor Tender Name Role Phone Ebony Sharp MD [...] Type Department Chava Kelly MD [address] [facility] [place] [address] Maggie Yap DO [address] [place] [address] [phone] Pleuritic chest pain (Primary Dx); Allergic reaction, initial encounter 09/05/2015 Emergency [facility] [address] [place] [address] Social History Date Tobacco Use [...] Comments Vital Sign 137/82 09/05/2015 8:16 PM MANUFACTURING OPERATOR Blood Pressure 80 09/05/2015 8:16 PM MANUFACTURING OPERATOR Pulse 36.4 C (97.5 F) 09/05/2015 3:52 PM MANUFACTURING OPERATOR Temperature 17 09/05/2015 8:16 PM MANUFACTURING OPERATOR Respiratory Rate 94% 09/05/2015 8:16 PM MANUFACTURING OPERATOR Oxygen Saturation - - Inhaled Oxygen Concentration 92.5 kg (204 lb) 09/05/2015 3:52 PM MANUFACTURING OPERATOR Weight 152.4 cm (5') 09/05/2015 3:52 PM MANUFACTURING OPERATOR Height 39.84 09/05/2015 3:52 PM MANUFACTURING OPERATOR Body Mass Index documented in this [...] an antihistamine available at drug and darryl [employer] stores. Unless a prescription antihistamine was given, [...] Colored fluid draining from the wound [employer] [address] [place] [address] 094 7. All rights reserved. This information is [...] Swelling, pain or redness in one leg 2027-4066 [employer] [address] [place] [address] 6351 7. All rights reserved. This information is [...] * Wayne Rutherford - 09/05/2015 7:27 PM MANUFACTURING OPERATOR Patient back in room from V/Q scan, sitting up in bed eating, patient has no c/o or needs at this time will continue to monitor. FACTURING OPERATOR * Wayne Rutherford - 09/05/2015 6:29 PM MANUFACTURING OPERATOR Diet tray ordered for patient, okay per Dr. Yap. Patient back in bed given wa rm blanket, has no other needs at this time. Will continue to monitor. FACTURING OPERATOR Wayne Griggs - 09/05/2015 6:16 PM MANUFACTURING OPERATOR Patient ambulated up to BR without any difficulty. FACTURING OPERATOR Wayne Griggs - 09/05/2015 5:11 PM MANUFACTURING OPERATOR PICC nurse was unsuccessful obtaining IV access in patient's AC, will notify Dr. Yap. FACTURING OPERATOR Wayne Griggs - 09/05/2015 4:50 PM MANUFACTURING OPERATOR PICC nurse called and asked to help start IV in AC space for CTA exam. FACTURING OPERATOR Maggie Blanco DO - 09/05/2015 4:27 PM MANUFACTURING OPERATOR 09/05/2015 [facility] History Chief Complaint Patient [...] tongue swelling after eating some papaya in [place] mix toda y. Symptoms started around 2:30 [...] IMPRESSION: No acute cardiopulmonary process. READING SITE: [facility] Lung Scan VQ (Results Pending) [...] encounter ALLERGIC REACTION Maggie Yap DO 09/05/151948 FACTURING OPERATOR * Mary Jo Rodas, RN - 09/05/2015 3:56 PM MANUFACTURING OPERATOR PT HERE VIA EMS C/O CHEST/EPIGASTRIC PAIN [...] C/ O SOME SOA, DENIES OTHER COMPLAINT. FACTURING OPERATOR * Calvin Garcia - 09/05/2015 3:48 PM MANUFACTURING OPERATOR Bed: [facility]- Expected date: Expected time: Means of arrival: Comments: 65F chest pain FACTURING OPERATOR documented in this encounter Plan of Treatment Not on filedocumented as of this encounter Procedures Comments Procedure Name Priority Date/Time Associated Diag nosis LAB SUMMARY 09/07/2015 5:31 AM MANUFACTURING OPERATOR NM LUNG SCAN VQ STAT 09/05/2015 7:09 PM MANUFACTURING OPERATOR TROPONIN STAT 09/05/2015 4:07 PM MANUFACTURING OPERATOR PROTHROMBIN TIME/INR STAT 09/05/2015 4:07 PM MANUFACTURING OPERATOR D DIMER STAT 09/05/2015 4:07 PM MANUFACTURING OPERATOR COMPREHENSIVE METABOLIC STAT 09/05/2015 PANEL 4:07 PM MANUFACTURING OPERATOR CBC AND DIFF (MANUAL DIFF STAT 09/05/2015 IF NECESSARY) 4:07 PM MANUFACTURING OPERATOR XR CHEST SINGLE VIEW STAT 09/05/2015 FRONTAL 3:59 PM MANUFACTURING OPERATOR PULSE OXIMETRY, STAT 09/05/2015 CONTINUOUS 3:51 PM MANUFACTURING OPERATOR ECG STAT 09/05/2015 3:51 PM MANUFACTURING OPERATOR documented in this encounter Results * LAB SUMMARY (09/07/2015 5:31 AM MANUFACTURING OPERATOR) Narrative Performed At This result has an attachment that is n ot available. Ordered by an unspecified provider. * NM Lung Scan VQ (09/05/2015 7:09 PM MANUFACTURING OPERATOR) Specimen Impressions Performed At Impression: Low probability of pulmonary embolism. M JANE ATTESTATION STATEMENT: The Staff Radiologist has personally re viewed the images and dictated, reviewed, or edited the final report. READING SITE: [facility]. Narrative Performed At Patient: ISIAH BENÍTEZ Sex#: F # [id number] Jose#: Location: [place] [address] Procedure Requested: [id number] NM LUNG SCAN VQ Reason for Exam: [...] Rad Results In - 09/06/2015 7:24 AM MANUFACTURING OPERATOR Patient: ISIAH BENÍTEZ Sex#: F # [id number] Jose#: Location: [facility] SED-22 Procedure Requested: [id number] NM LUNG SCAN VQ Reason for Exam: [...] or edited the final report. READING SITE: [facility]. Performing Organization Address [facility] one Number [facility] * D Dimer (09/05/2015 4:07 PM MANUFACTURING OPERATOR) Pathologist [facility] D Dimer 1.26 (H)Comment: Cutoff value 0.00 - 0.40 ug/m L [facility] for exclusion of venous [facility] thromboembolism is <0.40 ug/mL [facility]. Specimen Blood Performing Organization Address [facility] Ph one Number [facility] [address] [place] [facility] [place] [id number] [facility] [address] [place] [address], [facility] * Troponin (09/05/2015 4:07 PM MANUFACTURING OPERATOR) Pathologist [facility] Troponin <0.01 0.00 - 0.03 ng/mL [facility] Comment: [facility] Troponin Value [facility] Interpretation 0.00 - 0.03 Healthy 0.04 - 0.12 Increased Cardiac Risk >0.12 Myocardial Infarction Troponin may not become elevated until 6 to 8 hours after onset of symptoms. Specimen Blood Performing Organization Address City/State/Zipcode Ph one Number [facility] [address] [place] [address] [facility] [address] [place] [address], [facility] * Prothrombin Time/INR - ONLY if patient is on Warfarin (09/05/2015 4:07 PM MANUFACTURING OPERATOR) Pathologist [facility] Protime 13.2 11.4 - 15.0 sec [facility] INR 1.0 0.8 - 1.2 [facility] Specimen Blood Performing Organization Address City/State/[facility] Ph one Number [facility] [address] [place] [address] [facility] [address] [place] [address], [facility] * CBC and Diff (manual diff if necessary) (09/05/2015 4:07 PM MANUFACTURING OPERATOR) Pathologist [facility] WBC 10.96 4.00 - 11.00 TH/uL [facility] [...] 0.0 - 0.4 TH/uL [facility] # Basophils 0.05 0.0 - 0.1 TH/uL [facility] Specimen Blood Performing Organization Address City/State/Zipcode Ph one Number [facility] [address] [employer] [address] [facility] [address] [facility] [place] [address], [facility] * Comprehensive Metabolic Panel (09/05/2015 4:07 PM MANUFACTURING OPERATOR) Sodium 141 133 - 147 MEQ/L [facility] Potassium 3.7 3.5 - 5.3 MEQ/L [facility] Chloride 105 96 - 112 MEQ/L [facility] Carbon Dioxide 25 20 - 32 MEQ/L [facility] Anion Gap 11 5 - 17 [facility] Calcium 9.6 8.4 - 10.5 mg/dL [facility] Glucose 136 (H) 70 - 100 mg/dL [facility] Protein Total 7.7 6.0 - 8.2 g/dL [facility] Serum [facility] Albumin 4.4 3.5 - 5.0 g/dL [facility] Alkaline 87 42 - 140 IU/L [facility] Phosphatase [facility] Alanine 24 13 - 69 IU/L [facility] Aminotransferas [facility] e [facility] Aspartate 37 15 - 46 IU/L [facility] Aminotransferas [facility] e [facility] Bilirubin Total 0.4 0.2 - 1.3 mg/dL [facility] Blood Urea 22 7 - 26 mg/dL [facility] Nitrogen [facility] Creatinine 0.8 0.4 - 1.1 mg/dL [facility] eGFR Female AA 87 60 - 200 [facility] Comment: [facility] Chronic Kidney Disease less [facility] than 60 mL/min/1.73 sq.m Kidney failure less than 15 mL/min/1.73 sq.m eGFR Female 72 60 - 200 [facility] Non-AA Comment: [facility] Chronic Kidney Disease less [facility] than 60 mL/min/1.73 sq.m Kidney failure less than 15 mL/min/1.73 sq.m Specimen Blood Performing Organization Address City/State/Zipcode Ph one Number [facility] [address] [place] [address] [facility] [address] [facility] [address], [place] [phone] [facility] * XR Chest single view frontal (09/05/2015 3:59 PM MANUFACTURING OPERATOR) Specimen Impressions Performed At IMPRESSION: No acute cardiopulmonary process. [facility] READING SITE: [facility] Narrative Performed At Patient: ISIAH BENÍTEZ Sex#: Paulina # [id number] Jose#: Location: [place] [address] Procedure Requested: [id number] XR CHEST SINGLE VIEW FRONTAL Reason for [...] Rad Results In - 09/05/2015 5:25 PM MANUFACTURING OPERATOR Patient: ISIAH BENÍTEZ Sex#: F # [id number] Jose#: Location: [place] [address] Procedure Requested: [id number] XR CHEST SINGLE VIEW FRONTAL Reason for [...] IMPRESSION: No acute cardiopulmonary process. READING SITE: [facility] Performing Organization Address City/State/Zipcode Ph one Number [facility] * Electrocardiogram (ECG) (09/05/2015 3:51 PM MANUFACTURING OPERATOR) Specimen Narrative Performed At [facility] ED Test Date: 2015-09-05 Pat Name: ISIAH BENÍTEZ Department: ERS Room: SED Gender: Female Pharmacy Intake Technician: JJ : 1950 Requested By: CHAVA KELLY Order Number: [id number] Reading MD: Delores Caberra Measurements Intervals Ewing Rate: 66 P: 31 SC: 136 QRS: 21 QRSD: 98 T: 58 QT: 424 QTc: 445 Interpretive Statements SINUS RHYTHM No previous ECG available for compariso n Electronically Signed On 09-06-2015 14:0 9:54 MANUFACTURING OPERATOR by Delores Cabrera Performing Organization Address City/State/Zipcode Ph one Number [facility] documented in this encounter Visit Diagnoses Diagnosis Pleuritic chest pain Painful respiration Allergic reaction, initial encounter documented in this encounter Administered Medications Action Date Dose Rate Site Medication Order MAR Action 09/05/2015 4:34 PM MANUFACTURING OPERATOR 20 mg famotidine (PEPCID) injection 20 mg Given 20 mg, Intravenous, Once, Ju 09/05/15 a t 1629, For 1 dose 09/05/2015 8:05 PM MANUFACTURING OPERATOR 1 tablet HYDROcodone-acetaminophen (NORCO) 5-325 Given mg per tablet 1 tablet 1 tablet, Oral, Once, Ju 09/05/15 at 2004, For 1 dose, Do not exceed 4 GM/DA Y of acetaminophen. If 65 or older do no t exceed 3 GM/DAY. If chronic alcoholic d o not exceed 2 GM/DAY., 09/05/2015 4:39 PM MANUFACTURING OPERATOR 3 mL ipratropium-albuterol (DUO-NEB) 0.5-3 Given mg/3 mL nebulizer solution 3 mL 3 mL, Inhalation, As needed, wheezing, shortness of air, bronchospasm, Startin g Ju 09/05/15 at 1627, Via SVN, 09/05/2015 5:39 PM MANUFACTURING OPERATOR 30 mg ketorolac (TORADOL) injection 30 mg Given 30 mg, Intravenous, Once, Ju 09/05/15 a t 1736, For 1 dose 09/05/2015 4:37 PM MANUFACTURING OPERATOR 125 mg methylPREDNISolone sodium succinate Given (Solu-MEDROL) injection 125 mg 125 mg, Intravenous, Once, Ju 09/05/15 at 1629, For 1 dose 09/05/2015 4:31 PM MANUFACTURING OPERATOR 4 mg morphine 4 mg Given 4 mg, Intravenous, Once, Ju 09/05/15 at 1629, For 1 dose 09/05/2015 5:38 PM MANUFACTURING OPERATOR 500 mL 1000 mL/hr sodium chloride 0.9% (NS) IV Bolus New Bag 500 mL, Intravenous, Administer over 30 Minutes, Once, Ju 09/05/15 at 1651, For 1 dose documented in this encounter
--- OUTSIDE RECORDS SUMMARY | 2020-03-16 14:16 | XMS REPORT | Encounter Summary ---
Author Author [facility] Organization [facility] Address Unknown Phone Unavailable Care Team Providers Care Grades 1 Thru 6 Visiting Teacher Name Role Phone PCP Unavailable Encounter Details Care Team Description Date Type Department James Foster DO [address] [place] [address] [phone] [facility] [id number] [place] [address] Social History Date Tobacco Use Types Packs/Day [...] of : 10/15/1949 Sex: F Check-in #: [id number] Jose#/Jacket#: [id number] Room/Bed/Location: Medical Rec ord #: [id number] Attending Physician: [id number] Corea Admitting Diagnosis: 959.4 HAND INJURY NOS Procedure Requested: [id number] DX FINGERS M IN 2 VIEWS LEFT [...] Fracture of the proximal di stal phalanx. Fermentologist- ALEX MOBLEY M.D. , Staff Radiologist Dictated By- ALEX MOBLEY M.D., Sta ff Radiologist Staff Physician- ALEX MOBLEY M.D., Staff Radiologist Authenticated By- ALEX MOBLEY M.D. 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 Fermentologist- ALEX MOBLEY M.D., Staff Radiologist Dictated By- ALEX MOBLEY M.D., Staff Radiologist Staff Physician- ALEX MOBLEY M.D., Staff Radiologist Authenticated By- ALEX MOBLEY M.D., Staff Radiologist Released Date Time- 05/09/05 0541 [id number] Performing Organization Address City/State/Zipcode Ph one Number [facility] * CT Head wo contrast (05/08/2005 5:00 PM CDT) Specimen Narrative Performed At Report [facility] Name: ISIAH BENÍTEZ P Date of : 10/15/1949 Sex: F Check-in #: [id number] Jose#/Jacket#: [id number] Room/Bed/Location: Medical Rec ord #: [id number] Attending Physician: [id number] TIFFANIE Corea Admitting Diagnosis: 780.79 MALAISE AND FATIGUE NEC Procedure Requested: [id number] CT HEAD WO C ONTRAST L Reason For Exam: 780.79 MALAISE AND FAT IGUE NEC Requested By: TIFFANIE Corea DO E xam Ordered: 05/08/20051733 Exam Date/Time: 05/08/20051714 Ch alura-in Date/Time: 05/08/20051733 These images and this report [...] Impression: No acute intracranial proce ss identified. 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 Impression: No acute intracranial process identified. Fermentologist- KELLY GAN M.D., Staff Radiologist Dictated By- REYNOLD RINCON D.O., Resident Staff Physician- KELLY GAN M.D., Staff Radiologist Authenticated By- KELLY GAN M.D., Staff Radiologist Released Date Time- 05/08/05 1758 [id number] Performing Organization Address City/State/[facility] Ph one Number [facility] documented in this encounter Visit Diagnoses Diagnosis Open wound of forehead, without mention of complication documented in this encounter
--- OUTSIDE RECORDS SUMMARY | 2020-03-16 14:27 | XMS REPORT | Continuity of Care Document ---
[...] PATRICK, LAURIE 414.0 1 CAD 04/16/2010 VALDO PTARICK, LAURIE 414.0 1 CAD 04/16/2010 VALDO PATRICK, [...] Involving Shoulder Region 06/25/2011 LAURIE LYLE MD 71Fleix.4 1 Pain In Joint Involving Shoulder Region [...] 716.9 0 UNSPECIFIED ARTHROPATHY SITE UNSPECIFIED 05/04/2013 RAHDA KAUR DO 716.90 UNSPECIFIED ARTHROPATHY SITE UNSPECIFIED 05/04/2013 LAUREI LYLE MD 716.9 0 UNSPECIFIED ARTHROPATHY SITE [...] Code Description [place] [address] A1C (IN-HOUSE) 05/04/2013 36174 MICR O ALBUMIN-IN HOUSE 05/04/2013 Orthopedi Kendal, Hilario 06/06/2013 60231 OXIMETRY 07/25/2013 J2930 SOLU MEDROL INJ 10/17/2013 53747 THER APUTIC INJ SQ/IM 10/17/2013 08963 OXIMETRY 10/18/2013 30793 A1C (IN-HOUSE) 10/20/2013 92160 OXIMETRY 10/23/2013 26933 OXIMETRY 11/24/2013 66054 OXIMETRY 11/27/2013 16689 OXIMETRY 12/07/2013 44625 A1C (IN-HOUSE) 01/25/2014 70301 OXIMETRY 01/25/2014 36210 US V ENOUS DOPPLER (DVT EVAL) 03/01/2014 86819 OXIMETRY 03/20/2014 60375 A1C (IN-HOUSE) 05/15/2014 46252 ROUT INE VENIPUNCTURE 11/06/2014 43443 A1C (IN-HOUSE) 11/12/2014 Results There is no data. Encounters ACCT No. Visit Date/Time Discharge Status Pt. Type Provider Facility Loc./Unit Complaint [id number] 11/12/2014 08:46:00 11/12/2014 23:59: 59 [facility] Outpatient LAURIE LYLE MD [id number] 11/12/2014 08:46:00 11/12/2014 23:59: 59 [facility] Outpatient LAURIE LYLE MD [id number] 07/11/2014 07:02:00 07/11/2014 23:59: 59 [facility] [place] RADHA KAUR DO [id number] 06/18/2014 15:58:00 06/18/2014 23:59: 59 [facility] Outpatient LAURIE LYLE MD [id number] 05/15/2014 15:49:00 05/15/2014 23:59: 59 [facility] Outpatient LAURIE LYLE MD [id number] 05/15/2014 15:49:00 05/15/2014 23:59: 59 [facility] Outpatient LAURIE LYLE MD [id number] 03/01/2014 14:07:00 03/01/2014 23:59: 59 [facility] Outpatient LAURIE LYLE MD [id number] 03/01/2014 14:07:00 03/01/2014 23:59: 59 CLS Outpatient RADHA KAUR DO [id number] 02/08/2014 15:16:00 02/08/2014 23:59: 59 [facility] Outpatient LAURIE LYLE MD [id number] 01/25/2014 15:56:00 01/25/2014 23:59: 59 [facility] Outpatient LAURIE LYLE MD [id number] 01/25/2014 15:56:00 01/25/2014 23:59: 59 CLS Outpatient LAURIE LYLE MD [id number] 12/21/2013 15:54:00 12/21/2013 23:59: 59 [facility] Outpatient RADHA KAUR DO [id number] 12/07/2013 15:23:00 12/07/2013 23:59: 59 [facility] Outpatient LAURIE LYLE MD [id number] 11/27/2013 15:23:00 11/27/2013 23:59: 59 [facility] Outpatient LAURIE LYLE MD [id number] 11/27/2013 15:23:00 11/27/2013 23:59: 59 CLS Outpatient LAURIE LYLE MD [id number] 11/24/2013 10:24:00 11/24/2013 23:59: 59 CLS Outpatient LAURIE LYLE MD [id number] 10/30/2013 13:21:00 10/30/2013 23:59: 59 [facility]LS Outpatient LAURIE LYLE MD [id number] 10/20/2013 15:08:00 10/20/2013 23:59: 59 [facility] Outpatient LAURIE LYLE MD [id number] 10/20/2013 15:08:00 10/20/2013 23:59: 59 [facility] Outpatient LAURIE LYLE MD [id number] 07/25/2013 09:10:00 07/25/2013 23:59: 59 CLS Outpatient LAURIE LYLE MD [id number] 06/05/2013 10:34:00 06/05/2013 23:59: 59 CLS Outpatient LAURIE LYLE MD [id number] 05/04/2013 16:15:00 05/04/2013 23:59: 59 CLS Outpatient LAURIE LYLE MD [id number] 05/04/2013 16:15:00 05/04/2013 23:59: 59 [facility] Outpatient LAURIE LYLE MD [id number] 01/10/2020 11:21:00 01/10/2020 23:59 :00 DIS Outpatient KIRSTEN ERNST [id number] 08/01/2018 08:59:00 08/01/2018 23:59: 00 DIS Outpatient HILARIO THAO [id number] 08/01/2018 08:25:00 08/01/2018 23:59: 00 DIS Outpatient HILARIO THAO [id number] 03/12/2020 07:05:00 03/12/2020 23:59:5 9 [facility] Outpatient VALDO PATRICK, LAURIE LEUNG [facility]
== END 2020-03-14 11:38 | disposition home or self-care (01) ==
LOC: EDUNIT# 08:23 → ER 08:24 → UNDOADMOB 11:33 → 4TH 11:33 → UNDODISOB 03-14 13:19
PROVIDERS: ADMIT Family Medicine; ATTEND Family Medicine
DX: E11.65 Type 2 diabetes mellitus with hyperglycemia (principal); R19.7 Diarrhea, unspecified; R11.11 Vomiting without nausea; N30.00 Acute cystitis without hematuria; I10 Essential (primary) hypertension; J44.9 Chronic obstructive pulmonary disease, unspecified; I25.10 Atherosclerotic heart disease of native coronary artery without angina pectoris; E78.00 Pure hypercholesterolemia, unspecified; K21.9 Gastro-esophageal reflux disease without esophagitis; M54.9 Dorsalgia, unspecified; M19.90 Unspecified osteoarthritis, unspecified site; F32.9 Major depressive disorder, single episode, unspecified; F41.9 Anxiety disorder, unspecified; Z79.4 Long term (current) use of insulin; Z20.828 Contact with and (suspected) exposure to other viral communicable diseases; Z87.19 Personal history of other diseases of the digestive system; Z79.899 Other long term (current) drug therapy; Z79.82 Long term (current) use of aspirin; Z96.653 Presence of artificial knee joint, bilateral; Z88.8 Allergy status to other drugs, medicaments and biological substances; Z88.2 Allergy status to sulfonamides
CPT/HCPCS: 80048 ×2; 80053; 81000; 82962 ×3; 83605; 85025; 85027 ×2; 86141; 87040; 87088; 94640 ×3; 94664; 96361; 96374; 96375; 96376; 99284; U0002; 36415; 87635; G0378

== ENCOUNTER → 2020-05-01 | Outpatient (CLI) | payer MEDICARE ==
[~2020-05-01] MED LIST changes: +ASPI-1238 PO; +ATOR40TA70 PO; +CEFD300C3 PO; +CITA20TA9 PO; +CYCL10TA9 PO; +MTP100TCR PO; +RT-ALBUINH IH
--- NOTE | 2020-05-01 11:35 | Diagnostic Imaging Report ---
PROCEDURE: CT abdomen and pelvis without contrast. TECHNIQUE: Multiple contiguous axial images were obtained through the abdomen and pelvis without the use of intravenous contrast. Auto Exposure Controls were utilized during the CT exam to meet ALARA standards for radiation dose reduction. INDICATION: Bilateral flank pain and painful urination. Patient does have history of kidney stones. Correlation is made with prior CT from 11/20/2018. Linear atelectasis or scarring in the right middle lobe and lingula is noted. No discrete liver mass is detected. Gallbladder is surgically absent. No biliary ductal dilatation is seen. Pancreas and spleen are unremarkable. No adrenal mass is detected. Previously noted nonobstructing calculus lower pole left kidney is no longer visualized. No new renal calculi are seen. Tiny low density lower pole right kidney appears stable. Aorta is partially calcified but non-aneurysmal. Ureters and bladder are unremarkable for calculi. There is no hydronephrosis. Small and large bowel loops are normal caliber. No obstruction. There is moderate stool in the colon. No free fluid or fluid collection is identified. No definite abdominal or pelvic lymphadenopathy is detected. IMPRESSION: 1. No evidence of urinary tract calculi or obstruction. Previously noted left lower pole renal calculus is no longer present. 2. Moderate stool, perhaps on the basis of constipation. Study is otherwise unremarkable. Dictated by: Dictated on workstation # [id number]
== END ==
LOC: RAD 10:45
PROVIDERS: ATTEND Urology
DX: R30.9 Painful micturition, unspecified (principal); R10.9 Unspecified abdominal pain; Z87.442 Personal history of urinary calculi; Z87.440 Personal history of urinary (tract) infections; Z20.828 Contact with and (suspected) exposure to other viral communicable diseases
CPT/HCPCS: 74176

== ENCOUNTER → 2020-11-26 | Outpatient (CLI) | payer MEDICARE ==
[~2020-11-26] MED LIST changes: +RT-ALBUTEROL SULF 2.5 MG/3 ML PRE-MIX VIAL INH ONE
--- NOTE | 2020-11-26 16:30 | Diagnostic Imaging Report ---
EXAMINATION: CT Chest without contrast. TECHNIQUE: Multiple contiguous axial images were obtained through the chest without the use of intravenous contrast. All CT scans use one or more of the following dose optimizing techniques: automated exposure control, MA and/or KvP adjustment based on a patient size and exam type, or iterative reconstruction. HISTORY: Shortness of breath. COPD. Right upper chest pain. COMPARISON: 03/11/2015. FINDINGS: The heart size is within normal limits. No pericardial effusion is present. There is no mediastinal, hilar, or axillary lymphadenopathy. Calcified mediastinal lymph nodes are present. A nodule is seen in the right upper lobe measuring 0.4 cm. No suspicious pulmonary nodules or pulmonary masses. A small amount of subsegmental atelectasis is seen in the lung bases. There are no focal areas of consolidation. No central endobronchial obstructing lesions are identified. There is no pleural effusion or pneumothorax. The osseous structures demonstrate no acute abnormalities. Limited views of the upper abdominal structures demonstrate no acute abnormalities. The gallbladder is surgically absent. Both adrenal glands are unremarkable. IMPRESSION: 1. Nodule in the right upper lobe measuring 0.4 cm. If the patient is at high risk for developing lung malignancy consider follow-up in 12 months. Otherwise, no further follow-up is recommended. 2. Calcified mediastinal lymph nodes, likely representing sequelae of prior granulomatous disease. 3. Small amount of subsegmental atelectasis in the lung bases. Dictated by: Dictated on workstation # [id number]
== END ==
LOC: RT 10:30
PROVIDERS: ATTEND Nurse Practitioner Family
DX: J44.9 Chronic obstructive pulmonary disease, unspecified (principal); J98.11 Atelectasis; R91.1 Solitary pulmonary nodule; I89.8 Other specified noninfective disorders of lymphatic vessels and lymph nodes; Z90.49 Acquired absence of other specified parts of digestive tract
CPT/HCPCS: 71250; 94060; 94640; 94726; 94729

== ENCOUNTER 2021-02-26 14:06 | Emergency (ER) | payer MEDICARE ==
[~2021-02-26] VITALS: Ht 152.4 cm; Wt 99.8 kg
[~2021-02-26 14:06] MED LIST changes: -RT-ALBUTEROL SULF 2.5 MG/3 ML PRE-MIX VIAL INH ONE
[2021-02-26 14:18] VITALS: BP 161/101
--- NOTE | 2021-02-26 14:44 | ED Abdominal Pain ---
General Chief Complaint: Abdominal/GI Problems Stated Complaint: RLQ PAIN Source of Information: Patient Exam Limitations: No Limitations History of Present Illness Date Seen by Provider: Feb 26, 2021 Time Seen by Provider: 14:27 Initial Comments This is a well-appearing 70-year-old female who presents to the ER with complaints of right lower quadrant pain x2 weeks. States that she been having intermittent sharp pains along with loose stools. Has not take anything for pain prior to arrival. Currently rating pain 9/10, constant, sharp in nature. No fevers, chills, cough, shortness of breath, nausea, vomiting. Allergies and Home Medications Allergies Coded Allergies: Sulfa (Sulfonamide Antibiotics) (Verified Allergy, Unknown, 11/26/06) lisinopril (Verified Allergy, Unknown, 07/26/14) metformin (Verified Allergy, Unknown, 07/26/14) Home Medications Albuterol Sulfate 1 Puff Puff, 2 PUFF IH Q4H PRN for SHORTNESS OF BREATH Prescribed by: DOROTEO HORAN on 03/14/20 1137 Amitriptyline HCl 25 Mg Tablet, 25 MG PO HS LAST FILLED 10-14-2019 #90 Prescribed by: DOROTEO HORAN on 03/14/20 1136 Aspirin 81 Mg Tablet.dr, 81 MG PO DAILY Prescribed by: DOROTEO HORAN on 03/14/20 1137 Atorvastatin Calcium 40 Mg Tablet, 40 MG PO HS LAST FILLED 10-14-2019 #90 Prescribed by: DOROTEO HORAN on 03/14/20 1137 Biotin 5,000 Mcg Tab.rapdis, 5,000 MCG PO DAILY, (Reported) Cefdinir 300 Mg Capsule, 300 MG PO BID Prescribed by: DOROTEO HORAN on 03/14/20 1137 Cefuroxime Axetil 250 Mg Tablet, 250 MG PO BID Prescribed by: SHOLA OAKLEY on 02/26/21 1732 Citalopram Hydrobromide 20 Mg Tablet, 20 MG PO DAILY, (Reported) Cyclobenzaprine HCl 10 Mg Tablet, 10 MG PO TID PRN for MUSCLE SPASMS Prescribed by: DOROTEO HORAN on 03/14/20 1137 Fluticasone/Vilanterol 1 Each Blst.w.dev, 1 EACH IH DAILY Prescribed by: DOROTEO HORAN on 03/14/20 1136 Insulin Glargine,Hum.rec.anlog 100 Unit/1 Ml Vial, 25 UNIT SQ HS Prescribed by: DOROTEO HORAN on 03/14/20 1136 Metoprolol Succinate 100 Mg Tab.er.24h, 100 MG PO BID Prescribed by: DOROTEO HORAN on 03/14/20 1137 Past Jkteqft-Xeopji-Vnvfil Hx Immunizations Up To Date Tetanus Booster (TDap): Less than 5yrs PED Vaccines UTD: No Past Medical History Surgeries: Yes (BILAT KNEE REPLACEMENT; L ANKLE FX/ORIF;HYST/BSO;CATARACTS;URETERAL STENTS) Cardiac, Section, Eye Surgery, Gallbladder, Hysterectomy, Oophorectomy, Orthopedic, Renal Respiratory: Yes Pneumonia, COPD Cardiac: Yes (HX OF ANGIOEDEMA DUE TO MEDICATION;CARDIAC CATH 03/2010-NO INTERVENTION) Chronic Edema/Swelling, Coronary Artery Disease, High Cholesterol, Hypertension Neurological: Yes Neuropathy Reproductive Disorders: Yes (hysterectomy) 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 Sexually Transmitted Disease: Yes (TRICHOMONAS) HIV/AIDS: No Genitourinary: Yes (CHRONIC RENAL INSUFFICIENCT) Kidney Infection, Bladder Infection, Kidney Stones, Renal Failure Gastrointestinal: Yes (EGD'S) Gastroesophageal Reflux, Pancreatitis, Ulcer Musculoskeletal: Yes (BILATERAL KNEE REPLACEMENT; LEFT ANKLE FX/ORIF;CHRONIC GENERALIZED PAIN) Arthritis, Back Injury, Chronic Back Pain, Fractures Endocrine: Yes Diabetes, Insulin dep HEENT: Yes (ONLY HAS PERIPHERAL VISION IN LEFT EYE) Cataract Loss of Vision: Left Cancer: No Psychosocial: Yes Eating Disorder, Sleep Difficulties, Anxiety, Depression Integumentary: No Blood Disorders: No Adverse Reaction/Blood Tranf: No Family Medical History Alcoholism 09 SISTER 09 SISTER Cancer 03 MOTHER Cataract 09 SISTER Family history: Cardiovascular disease 09 BROTHER (HEART ATTACK) Family history: Diabetes mellitus 09 SISTER Family history: Glaucoma 09 SISTER 09 SISTER Family history: Hypertension 09 BROTHER 09 BROTHER 09 BROTHER Family history: Osteoporosis 09 SISTER 09 SISTER Kidney disease 09 SISTER Seizure disorder Stroke 09 BROTHER No Family History of: Abdominal aortic aneurysm Cancer of colon Chest pain Congenital heart disease Congestive heart failure Cystic fibrosis Dementia Dysphagia Family history: Allergy Family history: Alzheimer's disease Family history: Arthritis Family history: Breast disease Family history: Coronary thrombosis Family history: Gastrointestinal disease Headache Hearing loss Heart disease Hereditary disease History of - anemia History of - disorder History of - respiratory disease History of drug abuse Human immunodeficiency virus (HIV) seropositivity Hypercholesterolemia Infertile Malignant neoplasm of lung Myocardial infarction Parkinson's disease Prostate cancer Psychotic disorder Tuberculosis Visual impairment Heart Disease, Cancer, CVA, Diabetes Physical Exam Vital Signs Capillary Refill : Height/Weight/BMI Height: 5'0.00" Weight: 220lbs. 0.3oz. [id number]; 38.13 BMI Method:Stated Progress/Results/Core Measures Results/Orders Lab Results Laboratory Tests Test 02/26/21 14:50 02/26/21 15:13 Range/Units Urine Color YELLOW Urine Clarity CLEAR Urine pH 5.5 5-[address] 1.015 L 1.016-1.022 Urine Protein NEGATIVE NEGATIVE Urine Glucose (UA) NEGATIVE NEGATIVE Urine Ketones NEGATIVE NEGATIVE Urine Nitrite NEGATIVE NEGATIVE Urine Bilirubin NEGATIVE NEGATIVE Urine Urobilinogen 0.2 < = 1.0 MG/DL Urine Leukocyte Esterase 1+ H NEGATIVE Urine RBC (Auto) NEGATIVE NEGATIVE Urine RBC NONE /HPF Urine WBC 10-25 H /HPF Urine Squamous Epithelial Cells 5-10 /HPF Urine Crystals NONE /LPF Urine Bacteria TRACE /HPF Urine Casts NONE /LPF Urine Mucus NEGATIVE /LPF Urine Culture Indicated YES White Blood Count 9.0 4.3-11.0 10^3/uL Red Blood Count 4.43 3.80-5.11 10^6/uL Hemoglobin 14.1 11.5-16.0 g/dL Hematocrit 44 35-52 % Mean Corpuscular Volume 99 80-99 fL Mean Corpuscular Hemoglobin 32 25-34 pg Mean Corpuscular Hemoglobin Concent 32 32-36 g/dL Red Cell Distribution Width 13.4 10.0-14.5 % Platelet Count 105 L 130-400 10^3/uL Mean Platelet Volume 10.0 9.0-12.2 fL Immature Granulocyte % (Auto) 0 % Neutrophils (%) (Auto) 56 42-75 % Lymphocytes (%) (Auto) 31 12-44 % Monocytes (%) (Auto) 8 0-12 % Eosinophils (%) (Auto) 4 0-10 % Basophils (%) (Auto) 1 0-10 % Neutrophils # (Auto) 5.1 1.8-7.8 10^3/uL Lymphocytes # (Auto) 2.8 1.0-4.0 10^3/uL Monocytes # (Auto) 0.8 0.0-1.0 10^3/uL Eosinophils # (Auto) 0.3 0.0-0.3 10^3/uL Basophils # (Auto) 0.1 0.0-0.1 10^3/uL Immature Granulocyte # (Auto) 0.0 0.0-0.1 10^3/uL Percent Immature Platelet Fraction 3.7 0.0-7.6 % Sodium Level 142 135-145 MMOL/L Potassium Level 3.6 3.6-5.0 MMOL/L Chloride Level 103 98-107 MMOL/L Carbon Dioxide Level 24 21-32 MMOL/L Anion Gap 15 H 5-14 MMOL/L Blood Urea Nitrogen 10 7-18 MG/DL Creatinine 1.00 0.60-1.30 MG/DL Estimat Glomerular Filtration Rate > 60 BUN/Creatinine Ratio 10 Glucose Level 132 H 70-105 MG/DL Calcium Level 8.7 8.5-10.1 MG/DL Corrected Calcium 8.9 8.5-10.1 MG/DL Total Bilirubin 0.3 0.1-1.0 MG/DL Aspartate Amino Transf (AST/SGOT) 34 5-34 U/L Alanine Aminotransferase (ALT/SGPT) 35 0-55 U/L Alkaline Phosphatase 108 40-136 U/L C-Reactive Protein High Sensitivity 0.79 H 0.00-0.50 MG/DL Total Protein 7.4 6.4-8.2 GM/DL Albumin 3.8 3.2-4.5 GM/DL My Orders Orders - SHOLA OAKLEY [employer] Ua Culture If Indicated (02/26/21 14:27) Fentanyl Inj (Sublimaze Injection) (02/26/21 15:00) Cbc With Automated Diff (02/26/21 14:49) Comprehensive Metabolic Panel (02/26/21 14:49) Hs C Reactive Protein (02/26/21 14:49) Ct Abdomen/Pelvis W (02/26/21 14:49) Ketorolac Injection (Toradol Injection) (02/26/21 16:00) Ketorolac Injection (Toradol Injection) (02/26/21 15:51) Iohexol Injection (Omnipaque 350 Mg/Ml 1 (02/26/21 16:15) Received Contrast (Hold Metformin- Contr (02/26/21 16:15) Sodium Chloride Flush (Catheter Flush Sy (02/26/21 16:15) Ns (Ivpb) (Sodium Chloride 0.9% Ivpb Bag (02/26/21 16:15) Urine Culture (02/26/21 14:50) Medications Given in ED Current Medications Medications Dose Ordered Sig/Jasmina Route Start Time Stop Time Status Last Admin Dose Admin Fentanyl Citrate 50 mcg ONCE ONCE IVP 02/26/21 15:00 02/26/21 15:01 DC 02/26/21 15:04 50 MCG Iohexol 100 ml ONCE ONCE IV 02/26/21 16:15 02/26/21 16:16 DC 02/26/21 16:24 100 ML Ketorolac Tromethamine 30 mg ONCE ONCE IVP 02/26/21 16:00 02/26/21 16:01 DC 02/26/21 15:53 30 MG Sodium Chloride 10 ml NEEDED PRN IV 02/26/21 16:15 02/26/21 16:24 10 ML Sodium Chloride 100 ml ONCE ONCE IV 02/26/21 16:15 02/26/21 16:16 DC 02/26/21 16:24 80 ML Departure Impression Primary Impression: Urinary tract infection Disposition: HOME, SELF-CARE Condition: Improved Departure-Patient Inst. Decision time for Depature: 17:30 Referrals: NO,LOCAL PHYSICIAN (PCP/Family) Primary Care Physician Patient Instructions: Urinary Tract Infection, Adult (DC) Add. Discharge Instructions: Plan: 1. Take antibiotics as directed and complete full course. May take Tylenol or Ibuprofen per package for pain. 2. Clear liquids for first 24 hours: Jello, Broth (no noodles), Sprite. Then advance to BRAT diet. 3. Follow up with your primary care provider for persistent symptoms. 4. Return for any new, concerning, or worsening symptoms. All discharge instructions reviewed with patient and/or family. Voiced understanding. Scripts Cefuroxime Axetil (Cefuroxime) 250 Mg Tablet 250 MG PO BID for 10 Days, #20 TAB 0 Refills Prov: SHOLA OAKLEY [employer] 02/26/21 SHOLA OAKLEY [employer] Feb 26, 2021 14:44
[2021-02-26] MEDS ORDERED: fentaNYL INJ 100 MCG/2 ML AMP IVP ONE (15:00)
[2021-02-26 15:21] LABS: BASOPHILS # (AUTO) 0.1 10^3/uL (0.0-0.1); BASOPHILS % (AUTO) 1 % (0-10); EOSINOPHILS # (AUTO) 0.3 10^3/uL (0.0-0.3); EOSINOPHILS % (AUTO) 4 % (0-10); HEMATOCRIT 44 % (35-52); HEMOGLOBIN 14.1 g/dL (11.5-16.0); LYMPHOCYTES # (AUTO) 2.8 10^3/uL (1.0-4.0); LYMPHOCYTES % (AUTO) 31 % (12-44); MEAN CORPUSCULAR HEMOGLOBIN 32 pg (25-34); MEAN CORPUSCULAR HGB CONC 32 g/dL (32-36); MEAN CORPUSCULAR VOLUME 99 fL (80-99); MONOCYTES # (AUTO) 0.8 10^3/uL (0.0-1.0); MONOCYTES % (AUTO) 8 % (0-12); NEUTROPHILS # (AUTO) 5.1 10^3/uL (1.8-7.8); NEUTROPHILS % (AUTO) 56 % (42-75); PLATELET COUNT 105 10^3/uL (130-400)
[2021-02-26 15:44] LABS: ALBUMIN 3.8 GM/DL (3.2-4.5); CHLORIDE 103 MMOL/L (98-107); POTASSIUM 3.6 MMOL/L (3.6-5.0); SODIUM 142 MMOL/L (135-145)
[2021-02-26 15:45] LABS: CALCIUM 8.7 MG/DL (8.5-10.1)
[2021-02-26 15:47] LABS: GLUCOSE 132 MG/DL (70-105); TOTAL PROTEIN 7.4 GM/DL (6.4-8.2)
[2021-02-26 15:48] LABS: BILIRUBIN,TOTAL 0.3 MG/DL (0.1-1.0); CARBON DIOXIDE 24 MMOL/L (21-32)
[2021-02-26 15:50] LABS: ALKALINE PHOSPHATASE 108 U/L (40-136); GFR ESTIMATED > 60
[2021-02-26 15:51] LABS: BUN/CREATININE RATIO 10
[2021-02-26] MEDS ORDERED: KETOROLAC 30 MG/ML VIAL ONE (15:51)
[2021-02-26 15:53] LABS: ALANINE AMINOTRANSFERASE 35 U/L (0-55)
[2021-02-26] MEDS ORDERED: KETOROLAC 30 MG/ML VIAL IVP ONE (16:00)
[2021-02-26] MEDS ORDERED: IOHEXOL 350 MG/ML 100 ML (OMNIPAQUE 350) VIAL IV ONE (16:15)
[2021-02-26] MEDS ORDERED: CATHETER FLUSH 10 ML SYR IV PRN (16:15)
[2021-02-26] MEDS ORDERED: NS 100 ML (IVPB) BAG IV ONE (16:15)
[2021-02-26] MEDS ORDERED: HOLD METFORMIN - RECEIVED CONTRAST 20 ML VIAL IV SCH (16:15)
--- NOTE | 2021-02-26 16:41 | Diagnostic Imaging Report ---
PROCEDURE: CT abdomen and pelvis with contrast. TECHNIQUE: Multiple contiguous axial images were obtained through the abdomen and pelvis after administration of intravenous contrast. Auto Exposure Controls were utilized during the CT exam to meet ALARA standards for radiation dose reduction. All CT scans use one or more of the following dose optimizing techniques: automated exposure control, MA and/or KvP adjustment based on patient size and exam type or iterative reconstruction. INDICATION: Right lower quadrant abdominal pain x2 weeks. Diarrhea. COMPARISON: 03/23/2012 FINDINGS: Included portions of the lung bases are clear. CT ABDOMEN: Normal appendix is identified. Small bowel loops are nondistended. The kidneys, adrenal glands, spleen, pancreas, and liver have a normal CT appearance. There is no loculated fluid collection, free fluid, nor free air within the abdomen. No abnormal mesenteric or retroperitoneal adenopathy is seen. Osseous structures show no acute abnormalities. Note is made of mild to moderate scattered calcified aortic and arterial atherosclerosis. Osseous structures show no acute abnormalities. CT PELVIS: Urinary bladder is unopacified. No calculi are seen within the urinary bladder. There is no loculated fluid collection, free fluid, nor free air within the pelvis. No abnormal lymph nodes are seen. Osseous structures show no acute abnormalities. IMPRESSION: 1. No acute abnormalities are seen within the abdomen or pelvis. Dictated by: Dictated on workstation # [id number]
[2021-02-26 17:01] LABS: BILIRUBIN,URINE NEGATIVE (NEGATIVE); CLARITY,URINE CLEAR; COLOR,URINE YELLOW; GLUCOSE, URINE (UA) NEGATIVE (NEGATIVE); KETONES,URINE NEGATIVE (NEGATIVE); LEUKOCYTE ESTERASE ,URINE 1+ (NEGATIVE); NITRITE,URINE NEGATIVE (NEGATIVE); PH,URINE 5.5 (5-9); PROTEIN,URINE NEGATIVE (NEGATIVE)
[2021-02-26 17:20] LABS: BACTERIA,URINE TRACE /HPF
[2021-02-26] MEDS ORDERED: CEFU250T80 PO (17:32)
== END 2021-02-26 17:44 | disposition home or self-care (01) ==
LOC: EDUNIT# 14:06 → ER 14:12
DX: N39.0 Urinary tract infection, site not specified (principal); J44.9 Chronic obstructive pulmonary disease, unspecified; I10 Essential (primary) hypertension; E78.00 Pure hypercholesterolemia, unspecified; I25.10 Atherosclerotic heart disease of native coronary artery without angina pectoris; F41.9 Anxiety disorder, unspecified; E11.9 Type 2 diabetes mellitus without complications; F32.9 Major depressive disorder, single episode, unspecified; Z79.4 Long term (current) use of insulin; Z79.82 Long term (current) use of aspirin; Z79.899 Other long term (current) drug therapy
CPT/HCPCS: 36415; 74177; 80053; 81000; 85025; 86141; 87088

== ENCOUNTER 2021-04-25 16:45 | Emergency (ER) | payer MEDICARE ==
[~2021-04-25] VITALS: Ht 157 cm; Wt 99.8 kg
[~2021-04-25 16:45] MED LIST changes: +CEFU250T80 PO
[2021-04-25] MEDS ORDERED: ONDANSETRON 4 MG/2 ML (SDV) Z0FRAN IVP ONE (17:30)
[2021-04-25] MEDS ORDERED: LACTATED RINGERS 1,000 ML IV SCH (17:30)
[2021-04-25] MEDS ORDERED: fentaNYL INJ 100 MCG/2 ML AMP IVP ONE (18:00)
[2021-04-25 18:02] LABS: BASOPHILS # (AUTO) 0.1 10^3/uL (0.0-0.1); BASOPHILS % (AUTO) 1 % (0-10); EOSINOPHILS # (AUTO) 0.2 10^3/uL (0.0-0.3); EOSINOPHILS % (AUTO) 2 % (0-10); HEMATOCRIT 46 % (35-52); HEMOGLOBIN 14.8 g/dL (11.5-16.0); LYMPHOCYTES % (AUTO) 30 % (12-44); MEAN CORPUSCULAR HEMOGLOBIN 33 pg (25-34); MEAN CORPUSCULAR HGB CONC 32 g/dL (32-36); MEAN CORPUSCULAR VOLUME 101 fL (80-99); MONOCYTES % (AUTO) 10 % (0-12); NEUTROPHILS # (AUTO) 5.8 10^3/uL (1.8-7.8); NEUTROPHILS % (AUTO) 57 % (42-75); PLATELET COUNT 191 10^3/uL (130-400); WHITE BLOOD COUNT 10.1 10^3/uL (4.3-11.0)
--- NOTE | 2021-04-25 18:04 | ED GI ---
General Chief Complaint: Abdominal/GI Problems Stated Complaint: DIARRHEA,SORE THROAT,CHILLS, COPD, BODY ACHES Source of Information: Patient Exam Limitations: No Limitations History of Present Illness Date Seen by Provider: Apr 25, 2021 Time Seen by Provider: 18:02 Initial Comments To ER with 2 weeks of diarrhea, nausea, weakness. Covid vaccinated, history of COPD non oxygen dependent Timing/Duration: 1-2 Days Severity/Quality: Moderate Radiation: No Radiation Activities at Onset: None Associated Symptoms: Nausea/Vomiting Allergies and Home Medications Allergies Coded Allergies: Sulfa (Sulfonamide Antibiotics) (Verified Allergy, Unknown, 11/26/06) lisinopril (Verified Allergy, Unknown, 07/26/14) metformin (Verified Allergy, Unknown, 07/26/14) Patient Home Medication List Home Medication List Reviewed: Yes Albuterol Sulfate (Proair Hfa) 1 Puff Puff, 2 PUFF IH Q4H PRN for SHORTNESS OF BREATH Prescribed by: DOROTEO HORAN on 03/14/20 1137 Amitriptyline HCl (Amitriptyline HCl) 25 Mg Tablet, 25 MG PO HS Prescribed by: DOROTEO HORAN on 03/14/20 1136 Aspirin (Aspirin EC) 81 Mg Tablet.dr, 81 MG PO DAILY Prescribed by: DOROTEO HORAN on 03/14/20 1137 Atorvastatin Calcium (Atorvastatin Calcium) 40 Mg Tablet, 40 MG PO HS Prescribed by: DOROTEO HORAN on 03/14/20 1137 Biotin (Biotin) 5,000 Mcg Tab.rapdis, 5,000 MCG PO DAILY, (Reported) Entered as Reported by: BOBO ROBERT on 11/20/18 1452 Cefdinir (Cefdinir) 300 Mg Capsule, 300 MG PO BID Prescribed by: DOROTEO HORAN on 03/14/20 1137 Cefuroxime Axetil (Cefuroxime) 250 Mg Tablet, 250 MG PO BID Prescribed by: SHOLA OAKLEY on 02/26/21 173 Cefuroxime Axetil (Cefuroxime) 250 Mg Tablet, 250 MG PO BID Prescribed by: PRATIMA ALONSO on 04/25/21 194 Citalopram Hydrobromide (Citalopram HBr) 20 Mg Tablet, 20 MG PO DAILY, (Reported) Entered as Reported by: ELODIA LOPEZ on 03/12/20 0844 Cyclobenzaprine HCl (Cyclobenzaprine HCl) 10 Mg Tablet, 10 MG PO TID PRN for MUSCLE SPASMS Prescribed by: DOROTEO HORAN on 03/14/20 113 Fluticasone/Vilanterol (Breo Ellipta 200-25 Mcg INH) 1 Each Blst.w.dev, 1 EACH I H DAILY Prescribed by: DOROTEO HORAN on 03/14/20 113 Insulin Glargine,Hum.rec.anlog (Lantus) 100 Unit/1 Ml Vial, 25 UNIT SQ HS Prescribed by: DOROTEO HORAN on 03/14/20 113 Metoprolol Succinate (Metoprolol Succinate) 100 Mg Tab.er.24h, 100 MG PO BID Prescribed by: DOROTEO HORAN on 03/14/20 113 Ondansetron (Ondansetron Odt) 8 Mg Tab.rapdis, 8 MG PO Q6H PRN for NAUSEA/VOMITING Prescribed by: PRATIMA ALONSO on 04/25/211947 Review of Systems Review of Systems Constitutional: see HPI EENTM: No Symptoms Reported Respiratory: No Symptoms Reported Cardiovascular: No Symptoms Reported Gastrointestinal: See HPI, Abdominal Pain, Diarrhea, Nausea Genitourinary: No Symptoms Reported Musculoskeletal: no symptoms reported Skin: no symptoms reported Psychiatric/Neurological: No Symptoms Reported Endocrine: No Symptoms Reported Hematologic/Lymphatic: No Symptoms Reported Past Bxnioqj-Rzqnbr-Wqkcwm Hx Immunizations Up To Date Tetanus Booster (TDap): Less than 5yrs PED Vaccines UTD: No Past Medical History Surgeries: Yes (BILAT KNEE REPLACEMENT; L ANKLE FX/ORIF;HYST/BSO;CATARACTS;URETERAL STENTS) Cardiac, Section, Eye Surgery, Gallbladder, Hysterectomy, Oophorectomy, Orthopedic, Renal Respiratory: Yes Pneumonia, COPD Cardiac: Yes (HX OF ANGIOEDEMA DUE TO MEDICATION;CARDIAC CATH 03/2010-NO INTERVENTION) Chronic Edema/Swelling, Coronary Artery Disease, High Cholesterol, Hypertension Neurological: Yes Neuropathy Reproductive Disorders: Yes (hysterectomy) 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 Sexually Transmitted Disease: Yes (TRICHOMONAS) HIV/AIDS: No Genitourinary: Yes (CHRONIC RENAL INSUFFICIENCT) Kidney Infection, Bladder Infection, Kidney Stones, Renal Failure Gastrointestinal: Yes (EGD'S) Gastroesophageal Reflux, Pancreatitis, Ulcer Musculoskeletal: Yes (BILATERAL KNEE REPLACEMENT; LEFT ANKLE FX/ORIF;CHRONIC GENERALIZED PAIN) Arthritis, Back Injury, Chronic Back Pain, Fractures Endocrine: Yes Diabetes, Insulin dep HEENT: Yes (ONLY HAS PERIPHERAL VISION IN LEFT EYE) Cataract Loss of Vision: Left Cancer: No Psychosocial: Yes Eating Disorder, Sleep Difficulties, Anxiety, Depression Integumentary: No Blood Disorders: No Adverse Reaction/Blood Tranf: No Family Medical History Alcoholism 09 SISTER 09 SISTER Cancer 03 MOTHER Cataract 09 SISTER Family history: Cardiovascular disease 09 BROTHER (HEART ATTACK) Family history: Diabetes mellitus 09 SISTER Family history: Glaucoma 09 SISTER 09 SISTER Family history: Hypertension 09 BROTHER 09 BROTHER 09 BROTHER Family history: Osteoporosis 09 SISTER 09 SISTER Kidney disease 09 SISTER Seizure disorder Stroke 09 BROTHER No Family History of: Abdominal aortic aneurysm Cancer of colon Chest pain Congenital heart disease Congestive heart failure Cystic fibrosis Dementia Dysphagia Family history: Allergy Family history: Alzheimer's disease Family history: Arthritis Family history: Breast disease Family history: Coronary thrombosis Family history: Gastrointestinal disease Headache Hearing loss Heart disease Hereditary disease History of - anemia History of - disorder History of - respiratory disease History of drug abuse Human immunodeficiency virus (HIV) seropositivity Hypercholesterolemia Infertile Malignant neoplasm of lung Myocardial infarction Parkinson's disease Prostate cancer Psychotic disorder Tuberculosis Visual impairment Heart Disease, Cancer, CVA, Diabetes Physical Exam Vital Signs Capillary Refill : Height/Weight/BMI Height: 5'0.00" Weight: 220lbs. 0.3oz. 99.724877uz; 42.00 BMI Method:Stated General Appearance: WD/WN, no apparent distress, other (94% room air) Respiratory: no respiratory distress, no accessory muscle use Cardiovascular: regular rate, rhythm, no murmur Gastrointestinal: normal bowel sounds, soft, tenderness Extremities: normal range of motion, non-tender Neurologic/Psychiatric: alert, normal mood/affect, oriented x 3 Skin: normal color, warm/dry Progress/Results/Core Measures Results/Orders Lab Results Laboratory Tests Test 04/25/21 17:11 04/25/21 17:57 04/25/21 19:06 04/25/21 19:48 Range/Units Influenza Type A (RT-PCR) Not Detected Not Detecte Influenza Type B (RT-PCR) Not Detected Not Detecte SARS-CoV-2 RNA (RT-PCR) Not Detected Not Detecte White Blood Count 10.1 4.3-11.0 10^3/uL Red Blood Count 4.52 3.80-5.11 10^6/uL Hemoglobin 14.8 11.5-16.0 g/dL Hematocrit 46 35-52 % Mean Corpuscular Volume 101 H 80-99 fL Mean Corpuscular Hemoglobin 33 25-34 pg Mean Corpuscular Hemoglobin Concent 32 32-36 g/dL Red Cell Distribution Width 13.7 10.0-14.5 % Platelet Count 191 130-400 10^3/uL Mean Platelet Volume 10.0 9.0-12.2 fL Immature Granulocyte % (Auto) 0 % Neutrophils (%) (Auto) 57 42-75 % Lymphocytes (%) (Auto) 30 12-44 % Monocytes (%) (Auto) 10 0-12 % Eosinophils (%) (Auto) 2 0-10 % Basophils (%) (Auto) 1 0-10 % Neutrophils # (Auto) 5.8 1.8-7.8 10^3/uL Lymphocytes # (Auto) 3.0 1.0-4.0 10^3/uL Monocytes # (Auto) 1.0 0.0-1.0 10^3/uL Eosinophils # (Auto) 0.2 0.0-0.3 10^3/uL Basophils # (Auto) 0.1 0.0-0.1 10^3/uL Immature Granulocyte # (Auto) 0.0 0.0-0.1 10^3/uL Erythrocyte Sedimentation Rate 38 H 0-30 MM/HR Sodium Level 139 135-145 MMOL/L Potassium Level 3.3 L 3.6-5.0 MMOL/L Chloride Level 104 98-107 MMOL/L Carbon Dioxide Level 19 L 21-32 MMOL/L Anion Gap 16 H 5-14 MMOL/L Blood Urea Nitrogen 10 7-18 MG/DL Creatinine 1.01 0.60-1.30 MG/DL Estimat Glomerular Filtration Rate 66 BUN/Creatinine Ratio 10 Glucose Level 352 H 70-105 MG/DL Calcium Level 9.5 8.5-10.1 MG/DL Corrected Calcium 9.5 8.5-10.1 MG/DL Total Bilirubin 0.4 0.1-1.0 MG/DL Aspartate Amino Transf (AST/SGOT) 35 H 5-34 U/L Alanine Aminotransferase (ALT/SGPT) 42 0-55 U/L Alkaline Phosphatase 96 40-136 U/L C-Reactive Protein High Sensitivity 1.02 H 0.00-0.50 MG/DL Total Protein 7.8 6.4-8.2 GM/DL Albumin 4.0 3.2-4.5 GM/DL Procalcitonin 0.07 <0.10 NG/ML Urine Color YELLOW Urine Clarity CLOUDY Urine pH 5.5 5-9 Urine Specific [place] >=1.030 1.016-1.022 Urine Protein 1+ H NEGATIVE Urine Glucose (UA) 3+ H NEGATIVE Urine Ketones 1+ H NEGATIVE Urine Nitrite NEGATIVE NEGATIVE Urine Bilirubin 1+ H NEGATIVE Urine Urobilinogen 0.2 < = 1.0 MG/DL Urine Leukocyte Esterase 1+ H NEGATIVE Urine RBC (Auto) 1+ H NEGATIVE Urine RBC 0-2 /HPF Urine WBC 50-100 H /HPF Urine Squamous Epithelial Cells 10-25 H /HPF Urine Crystals NONE /LPF Urine Bacteria MODERATE H /HPF Urine Casts PRESENT /LPF Urine Hyaline Casts 0-2 H /LPF Urine Mucus SMALL H /LPF Urine Yeast FEW H /HPF Urine Culture Indicated YES Glucometer 270 H 70-110 MG/DL My Orders Orders - PRATIMA ALONSO APRN Cbc With Automated Diff (04/25/21 17:18) Comprehensive Metabolic Panel (04/25/21 17:18) Ua Culture If Indicated (04/25/21 17:18) Hs C Reactive Protein (04/25/21 17:18) Chest 1 View, Ap/Pa Only (04/25/21 17:18) Ed Iv/Invasive Line Start (04/25/21 17:18) Ondansetron Injection (Zofran Injectio (04/25/21 17:30) Lactated Ringers (Lr 1000 Ml Iv Solution (04/25/21 17:30) Fentanyl Inj (Sublimaze Injection) (04/25/21 18:00) Ct Abdomen/Pelvis Wo (04/25/21 17:58) Accucheck Stat ONCE (04/25/21 19:24) Urine Culture (04/25/21 19:06) Fluconazole Tablet (Ed Only) (Diflucan T (04/25/21 19:45) Ceftriaxone (Rocephin) (04/25/21 19:45) Medications Given in ED Current Medications Medications Dose Ordered Sig/Jasmina Route Start Time Stop Time Status Last Admin Dose Admin Fentanyl Citrate 50 mcg ONCE ONCE IVP 04/25/21 18:00 04/25/21 18:01 DC 04/25/21 18:31 50 MCG Ondansetron HCl 8 mg ONCE ONCE IVP 04/25/21 17:30 04/25/21 17:31 DC 04/25/21 18:14 8 MG Departure Impression Primary Impression: Nausea vomiting and diarrhea Disposition: HOME, SELF-CARE Condition: Stable Departure-Patient Inst. Decision time for Depature: 19:46 Referrals: NO,LOCAL PHYSICIAN (PCP/Family) Primary Care Physician Patient Instructions: Diarrhea, Adult ED Add. Discharge Instructions: 1. Increase fluid intake 2. You can use [id number] Imodium to control the diarrhea. Take the antibiotics for the urinary tract infection. Return to ER for any worsening. All discharge instructions reviewed with patient and/or family. Voiced understanding. Scripts Fluconazole (Diflucan) 150 Mg Tablet 150 MG PO DAILY, #3 TAB Prov: PRATIMA ALONSO APRN 04/25/21 Ondansetron (Ondansetron Odt) 8 Mg Tab.rapdis 8 MG PO Q6H PRN for NAUSEA/VOMITING, #10 TAB Prov: PRATIMA ALONSO APRN 04/25/21 Cefuroxime Axetil (Cefuroxime) 250 Mg Tablet 250 MG PO BID, #10 TAB Prov: PRATIMA ALONSO COMPLIANCE EXAMINER 04/25/21 PRATIMA ALONSO APRN Apr 25, 2021 18:04
[2021-04-25 18:13] LABS: POTASSIUM 3.3 MMOL/L (3.6-5.0)
[2021-04-25 18:14] LABS: CALCIUM 9.5 MG/DL (8.5-10.1)
[2021-04-25 18:15] LABS: TOTAL PROTEIN 7.8 GM/DL (6.4-8.2)
[2021-04-25 18:17] LABS: BILIRUBIN,TOTAL 0.4 MG/DL (0.1-1.0)
[2021-04-25 18:19] LABS: CREATININE SERUM 1.01 MG/DL (0.60-1.30)
[2021-04-25 18:23] LABS: ERYTHROCYTE SEDIMENTATION RATE 38 MM/HR (0-30)
--- NOTE | 2021-04-25 18:25 | Diagnostic Imaging Report ---
INDICATION: Weakness, low abdominal pain with diarrhea for two weeks. Shortness of air with COPD. EXAMINATION: Chest, 04/25/2021. COMPARISON: 11/28/2019. FINDINGS: There is linear atelectasis or scarring in the left mid lung. Remaining lungs are clear. No infiltrates, effusions, or pneumothorax. Heart and pulmonary vasculature are normal. No acute osseous abnormality. IMPRESSION: 1. Chronic findings with no acute cardiopulmonary process. Dictated by: Dictated on workstation # [id number]
--- NOTE | 2021-04-25 18:28 | Diagnostic Imaging Report ---
EXAMINATION: CT of the abdomen and pelvis without contrast 04/25/2021. TECHNIQUE: Multiple contiguous axial images were obtained through the abdomen and pelvis without the use of intravenous contrast. Auto Exposure Controls were utilized during the CT exam to meet ALARA standards for radiation dose reduction. INDICATION: Low abdominal pain with diarrhea for the last 2 weeks. COMPARISON: 02/26/2021 FINDINGS: The visualized lung bases appear clear. The nonopacified abdominal viscera limited due to the lack of contrast with no acute abnormality appreciated within the liver or spleen. There is evidence of old granulomatous disease throughout the liver. There is evidence of previous cholecystectomy. The liver and adrenal glands are unremarkable. Pancreas is unremarkable. Kidneys are unremarkable with no evidence for nephrolithiasis or hydronephrosis. There are no ureteral stones. The appendix is unremarkable. There is no ascites or free air. There is atherosclerotic disease. There is no acute osseous abnormality. Degenerative findings noted within the spine. IMPRESSION: 1. Incidental findings with no acute process in the abdomen or pelvis. Dictated by: Dictated on workstation # [id number]
[2021-04-25 19:24] LABS: CLARITY,URINE CLOUDY; COLOR,URINE YELLOW; GLUCOSE, URINE (UA) 3+ (NEGATIVE); KETONES,URINE 1+ (NEGATIVE); LEUKOCYTE ESTERASE ,URINE 1+ (NEGATIVE); NITRITE,URINE NEGATIVE (NEGATIVE); PH,URINE 5.5 (5-9); PROTEIN,URINE 1+ (NEGATIVE)
[2021-04-25 19:26] LABS: BILIRUBIN,URINE 1+ (NEGATIVE)
[2021-04-25 19:29] LABS: BACTERIA,URINE MODERATE /HPF; HYALINE CASTS, URINE 0-2 /LPF; RBC,URINE 0-2 /HPF; WBC,URINE 50-100 /HPF; YEAST,URINE FEW /HPF
[2021-04-25] MEDS ORDERED: cefTRIAXone 1,000 MG in WATER (STERILE) FOR INJECTION 10 ML IV ONE (19:45)
[2021-04-25] MEDS ORDERED: FLUCONAZOLE 150 MG TABLET (ED ONLY) PO ONE (19:45)
[2021-04-25] MEDS ORDERED: ONDA8TAB13 PO (19:48)
[2021-04-25] MEDS ORDERED: CEFU250T80 PO (19:48)
[2021-04-25 20:05] VITALS: BP 123/85
[2021-04-25] MEDS ORDERED: FLUC150T PO (20:10)
== END 2021-04-25 20:05 | disposition home or self-care (01) ==
LOC: EDUNIT# 16:45 → ER 16:47
DX: R11.2 Nausea with vomiting, unspecified (principal); R19.7 Diarrhea, unspecified; J44.9 Chronic obstructive pulmonary disease, unspecified; I10 Essential (primary) hypertension; I25.10 Atherosclerotic heart disease of native coronary artery without angina pectoris; E78.00 Pure hypercholesterolemia, unspecified; E11.9 Type 2 diabetes mellitus without complications; F41.9 Anxiety disorder, unspecified; F32.9 Major depressive disorder, single episode, unspecified; Z20.822 Contact with and (suspected) exposure to COVID-19; Z79.82 Long term (current) use of aspirin; Z79.899 Other long term (current) drug therapy; Z79.4 Long term (current) use of insulin
CPT/HCPCS: 36415; 71045; 74176; 80053; 81000; 82947; 84145; 85025; 85652; 86141; 87088; 87636

== ENCOUNTER 2021-05-21 05:35 | Outpatient (CLI) | payer MEDICARE ==
[~2021-05-21] VITALS: Ht 152.4 cm; Wt 95.8 kg
[~2021-05-21 05:35] MED LIST changes: +FLUC150T PO; +ONDA8TAB13 PO
[2021-05-21] MEDS ORDERED: GBPN600T PO (14:20)
[2021-05-21] MEDS ORDERED: OMEP-401 PO (14:20)
[2021-05-21] MEDS ORDERED: FLUT1BLS3 IH (14:20)
[2021-05-21] MEDS ORDERED: LIRA0.6P SQ (14:20)
[2021-05-21] MEDS ORDERED: BUSP10TA95 PO (14:20)
== END 2021-05-21 15:11 ==
LOC: PREOP 05:35
PROVIDERS: ATTEND Surgery
DX: Z01.818 Encounter for other preprocedural examination (principal)

== ENCOUNTER 2021-05-28 09:07 | Day surgery (SDC) | payer MEDICARE ==
[2021-05-28] VITALS (7 sets, daily range): BP systolic 127–163; BP diastolic 71–94
[~2021-05-28] VITALS: Ht 152.4 cm; Wt 95.8 kg
[~2021-05-28 09:07] MED LIST changes: +BUSP10TA95 PO; +FLUT1BLS3 IH; +GBPN600T PO; +LIRA0.6P SQ; +OMEP-401 PO
[2021-05-28] MEDS ORDERED: LACTATED RINGERS 1,000 ML IV ONE (09:17)
[2021-05-28] MEDS ORDERED: LACTATED RINGERS 1,000 ML IV STA (09:24)
[2021-05-28] MEDS ORDERED: LIDOCAINE JELLY 2% 6 ML SYRINGE MM PRN (09:30)
[2021-05-28] MEDS ORDERED: ONDANSETRON 4 MG/2 ML (SDV) Z0FRAN IVP PRN (10:15)
[2021-05-28] MEDS ORDERED: ONDANSETRON 4 MG (ZOFRAN) ORAL DISSOLVE TAB PO PRN (10:15)
--- NOTE | 2021-05-28 10:15 | Progress Note-Pre Operative ---
Pre-Operative Progress Note H&P Reviewed The H&P was reviewed, patient examined and no changes noted. Date Seen by Provider: May 28, 2021 Time Seen by Provider: 10:00 Date H&P Reviewed: May 28, 2021 Time H&P Reviewed: 10:00 Pre-Operative Diagnosis: screening colo, family hx colon ca SANA ROSALES MD May 28, 2021 10:15
--- NOTE | 2021-05-28 10:16 | Discharge Inst-Surgical ---
D/C Lap Instructions-BOBBY Follow Up Appt in 2 weeks Activity as tolerated High Fiber Diet 25g or more per day Avoid Alcohol, Caffeine, Spicy [employer] and Acid foods. Drink 64 fluid oz or more of fluids per day. Symptoms to Report: Fever over 101 degree F, Nausea/Vomiting If any problems/questions: Contact your physician or go to Emergency Room SANA ROSALES MD May 28, 2021 10:16
[2021-05-28] MEDS ORDERED: PROPOFOL INJECTION 50 ML IV ONE ×2 (11:11→11:40)
--- NOTE | 2021-05-28 12:05 | Anesthesia-General Post-Op ---
MAC Patient Condition Mental Status/LOC: Same as Preop Cardiovascular: Satisfactory Nausea/Vomiting: Absent Respiratory: Satisfactory Pain: Controlled Complications: Absent Post Op Complications Complications None Follow Up Care/Instructions Patient Instructions None needed. Anesthesiology Discharge Order Discharge Order Patient is doing well, no complaints, stable vital signs, no apparent adverse anesthesia problems. No complications reported per nursing. MERLIN FLOREZ CRNA May 28, 2021 12:05
--- NOTE | 2021-05-28 12:06 | Progress Note-Post Operative ---
Post-Operative Progess Note Surgeon (s)/Methods Analyst (s) Surgeon SANA ROSALES MD Methods Analyst: none Pre-Operative Diagnosis screening colo, family hx colon ca Post-Operative Diagnosis chronic stage 2 ext and int hemorrhoids. Procedure & Operative Findings Date of Procedure 05/28/21 Procedure Performed/Findings colonoscopy Anesthesia Type mac Estimated Blood Loss Estimated blood loss (mL): minimal Specimens/Packing Specimens Removed none SANA ROSALES MD May 28, 2021 12:05
--- NOTE | 2021-05-28 18:23 | OPERATIVE REPORT ---
DATE OF SERVICE: 05/28/2021 ATTENDING PRIMARY CARE PHYSICIAN: Dr. Helen Veronica. PREOPERATIVE DIAGNOSIS: Screening colonoscopy with family history of colon cancer as well as diarrhea. POSTOPERATIVE DIAGNOSES: Chronic stage II external and internal hemorrhoids. Remainder of the colon and rectum were normal. There were no mucosal inflammatory changes to indicate any active colitis. PROCEDURE: Colonoscopy. SURGEON: Sana Rosales MD. ANESTHESIA: Monitored anesthesia care. ESTIMATED BLOOD LOSS: Minimal. FINDINGS: Chronic stage II external and internal hemorrhoids. Remainder of the colon and rectum were normal. There were no mucosal inflammatory changes to indicate any active colitis. DISPOSITION: The patient tolerated the procedure well. INDICATIONS: The patient is a 70-year-old female who is in need of a screening colonoscopy. Her last colonoscopy was greater than 10 years ago and she does have a family history of colon cancer with her sister being diagnosed with the disease. She also reports that she has been having increased loose stools and during these episodes will notice some small amounts of self-limited blood with these loose stools. DESCRIPTION OF PROCEDURE: The patient was brought to the endoscopy suite, laid in left lateral decubitus position. After adequate IV pain and sedative medications and monitored anesthesia care, a digital rectal examination was performed. Mild chronic stage II external and internal hemorrhoids were identified, which were not actively edematous nor inflamed and no bleeding. Normal sphincter tone was felt and there were no palpable masses. The endoscope was then intubated and anus and rectum gently insufflated. The endoscope was then advanced through the valves of Marsh of the rectum with no polyps or any neoplasms identified. We then proceeded through the sigmoid colon where no diverticulosis identified. The endoscope was then advanced and remainder of the descending, transverse and ascending colon to the cecum. Throughout the colon or rectum, there were no mucosal inflammatory changes to indicate any active colitis as well as no polyps or any neoplasms. The endoscope was then slowly withdrawn while taking a second look and suctioning of residual air with no additional findings. The patient tolerated the procedure well. We feel that her loose stools likely secondary to diet as well as medications and we will recommend the incorporation of high-fiber diet with a fiber supplement, which should equal or exceed 25 grams daily to promote soft stools on a daily basis, which are not liquid diarrhea; however, at the same time, not well-formed. Due to her first-degree family history of colon cancer, we will recommend followup colonoscopies approximately every 5 years. Job ID: [id number] DocumentID: [id number] Dictated Date: 05/28/2021 12:00:58 Quill Collector Date: 05/28/2021 18:22:30 Dictated By: SANA ROSALES MD
== END 2021-05-28 12:50 | disposition home or self-care (01) ==
LOC: ENDO 09:07
PROVIDERS: ATTEND Surgery
DX: K64.1 Second degree hemorrhoids (principal); R19.7 Diarrhea, unspecified; K21.9 Gastro-esophageal reflux disease without esophagitis; F41.9 Anxiety disorder, unspecified; I10 Essential (primary) hypertension; E11.40 Type 2 diabetes mellitus with diabetic neuropathy, unspecified; G47.33 Obstructive sleep apnea (adult) (pediatric); J44.9 Chronic obstructive pulmonary disease, unspecified; E78.00 Pure hypercholesterolemia, unspecified; E66.01 Morbid (severe) obesity due to excess calories; Z68.41 Body mass index [BMI] 40.0-44.9, adult; Z90.49 Acquired absence of other specified parts of digestive tract; Z80.0 Family history of malignant neoplasm of digestive organs; Z87.891 Personal history of nicotine dependence; Z79.84 Long term (current) use of oral hypoglycemic drugs; Z91.040 Latex allergy status; Z99.81 Dependence on supplemental oxygen; Z79.4 Long term (current) use of insulin
CPT/HCPCS: 82947

== ENCOUNTER → 2021-12-24 | Outpatient (CLI) | payer MEDICARE ==
[~2021-12-24] VITALS: Ht 152 cm; Wt 95.0 kg
[~2021-12-24] MED LIST changes: +CATHETER FLUSH 10 ML SYR IVP PRN; +CYCL10TA25 PO; -CYCL10TA9 PO; +REGADENOSON 0.4 MG/5 ML SYR (LEXISCAN) IV ONE
[2021-12-24 13:11] VITALS: BP 178/97
--- NOTE | 2021-12-24 14:52 | Cardiology Stress Test Report ---
Stress Test Report Date of Procedure/Referring: Date of Procedure: December 24, 2021 PCP Omar Queen MD Admitting Physician Omar Queen MD Indications: HTN Baseline Heart Rate: 100 Baseline Blood Pressure: Blood Pressure Systolic: 178 Blood Pressure Diastolic: 97 Baseline Vitals Vital Signs Date Time Temp Pulse Resp B/P (MAP) Pulse Ox O2 Delivery O2 Flow Rate FiO2 12/24/21 13:11 100 178/97 (124) Baseline EKG: Baseline EKG: NSR Summary After explaining the procedure to the patient, she signed a consent and then brought to the stress nuclear laboratory. Patient received 0.4 mg Lexiscan for stress test, ECG, heart rate and blood pressure were monitored continuously. Resting and stress dose of radio tracer were injected, imaging was acquired and reviewed in short axis, horizontal long axis and vertical long axis views. TID: 1.13 SSS: 7 SDS: 0 EF: 58 1. Patient tolerated Lexiscan well 2. Baseline sinus tachycardia persisted during test 3. Baseline hypertension persisted during test 4. Breast attenuation with fixed defect involving the base of the anterior wall and anterior septum with no significant reversibility. No significant ischemia or infarction on SPECT images 5. Normal left ventricular size, ejection fraction 58% REA MARTIN MD December 24, 2021 14:52
== END ==
LOC: CARD 12:00
PROVIDERS: ATTEND Internal Medicine
DX: Z13.6 Encounter for screening for cardiovascular disorders (principal); I10 Essential (primary) hypertension
CPT/HCPCS: 78452; 93017; A9502

== ENCOUNTER 2022-01-21 10:05 | Emergency (ER) | payer MEDICARE ==
[~2022-01-21] VITALS: Ht 154.9 cm; Wt 72.0 kg
[~2022-01-21 10:05] MED LIST changes: -CATHETER FLUSH 10 ML SYR IVP PRN; -REGADENOSON 0.4 MG/5 ML SYR (LEXISCAN) IV ONE
[2022-01-21 10:19] VITALS: BP 181/102
--- NOTE | 2022-01-21 10:30 | ED Upper Extremity ---
General Chief Complaint: Upper Extremity Stated Complaint: R ARM PAIN Nursing Triage Note: fell out of bed 3 weeks ago onto her right arm. has noted brusing to right forearm with muscle pain. Source: patient Exam Limitations: no limitations History of Present Illness Date Seen by Provider: Jan 21, 2022 Time Seen by Provider: 10:28 Initial Comments Patient is a 71-year-old female who presents to the emergency department today with a chief complaint of right forearm pain. Patient states that she fell out of bed at about 2:00 in the morning 3 weeks ago. She states after hitting her arm it was "numb". She states she really did not do anything for it and over the course of the last week she has developed increasing bruising as well as increasing pain, swelling. She has been taking ibuprofen. She denies loss of function to the right upper extremity. She is not on blood thinners. No numbness tingling or weakness. It is painful and range of motion. She denies hitting her head or any other injuries. All other review of systems reviewed and negative except as stated. Onset: other (3 weeks ago) Pain/Injury Location: right forearm Method of Injury: fell Modifying Factors: Improves With Immobilization; Worse With Jarring, Worse With Movement Allergies and Home Medications Allergies Coded Allergies: Sulfa (Sulfonamide Antibiotics) (Verified Allergy, Unknown, 11/26/06) lisinopril (Verified Allergy, Unknown, 07/26/14) metformin (Verified Allergy, Unknown, 07/26/14) Patient Home Medication List Home Medication List Reviewed: Yes Amitriptyline HCl (Amitriptyline HCl) 25 Mg Tablet, 25 MG PO HS Prescribed by: DOROTEO HORAN on 03/14/20 1136 Atorvastatin Calcium (Atorvastatin Calcium) 40 Mg Tablet, 40 MG PO HS Prescribed by: DOROTEO HORAN on 03/14/20 1137 Buspirone HCl (Buspirone HCl) 10 Mg Tablet, 10 MG PO, (Reported) Entered as Reported by: ANGELA GUZMAN on 05/21/21 1420 Citalopram Hydrobromide (Citalopram HBr) 20 Mg Tablet, 20 MG PO DAILY, (Reported) Entered as Reported by: ELODIA LOPEZ on 03/12/20 0844 Fluticasone/Umeclidin/Vilanter (Trelegy Ellipta 100-62.5-25) 1 Each Blst.w.dev, 1 EACH IH DAILY, (Reported) Entered as Reported by: ANGELA GUZMAN on 05/21/21 142 Gabapentin (Gabapentin) 600 Mg Tablet, 600 MG PO TID, (Reported) Entered as Reported by: ANGELA GUZMAN on 05/21/211419 Insulin Glargine,Hum.rec.anlog (Lantus) 100 Unit/1 Ml Vial, 25 UNIT SQ HS Prescribed by: DOROTEO HORAN on 03/14/20 113 Liraglutide (Victoza 2-Segundo) 0.6 Mg/0.1 Ml Pen.injctr, 0.6 MG SQ DAILY, (Reported) Entered as Reported by: ANGELA GUZMAN on 05/21/21 142 Metoprolol Succinate (Metoprolol Succinate) 100 Mg Tab.er.24h, 100 MG PO BID Prescribed by: DOROTEO HORAN on 03/14/20 113 Omeprazole (Omeprazole) 20 Mg Tab.rap.dr, 20 MG PO DAILY, (Reported) Entered as Reported by: ANGELA GUZMAN on 05/21/211419 Review of Systems Constitutional: see HPI EENTM: no symptoms reported Respiratory: no symptoms reported Cardiovascular: no symptoms reported Gastrointestinal: no symptoms reported Genitourinary: no symptoms reported Musculoskeletal: muscle pain (right arm) Skin: other Psychiatric/Neurological: No Symptoms Reported All Other Systems Reviewed Negative Unless Noted: Yes Past Gxhaatn-Yqhque-Cuhsqh Hx Immunizations Up To Date Tetanus Booster (TDap): Unknown PED Vaccines UTD: No First/Initial COVID19 Vaccinat: YES Second COVID19 Vaccination Dashawn: YES Third COVID19 Vaccination Date: YES Seasonal Allergies Seasonal Allergies: No Past Medical History Surgeries: Yes (BILAT KNEE REPLACEMENT; L ANKLE FX/ORIF;HYST/BSO;CATARACTS;URETERAL STENTS) Cardiac, Section, Eye Surgery, Gallbladder, Hysterectomy, Oophorectomy, Orthopedic, Renal Respiratory: Yes Pneumonia, COPD Cardiac: Yes (HX OF ANGIOEDEMA DUE TO MEDICATION;CARDIAC CATH 03/2010-NO INTERVENTION) Chronic Edema/Swelling, Coronary Artery Disease, High Cholesterol, Hypertension Neurological: Yes Neuropathy Reproductive Disorders: Yes (hysterectomy) 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 Sexually Transmitted Disease: Yes (TRICHOMONAS) HIV/AIDS: No Genitourinary: Yes (CHRONIC RENAL INSUFFICIENCT) Kidney Infection, Bladder Infection, Kidney Stones, Renal Failure Gastrointestinal: Yes (EGD'S) Gastroesophageal Reflux, Pancreatitis, Ulcer Musculoskeletal: Yes (BILATERAL KNEE REPLACEMENT; LEFT ANKLE FX/ORIF;CHRONIC GENERALIZED PAIN) Arthritis, Back Injury, Chronic Back Pain, Fractures Endocrine: Yes Diabetes, Insulin dep HEENT: Yes (ONLY HAS PERIPHERAL VISION IN LEFT EYE) Cataract Loss of Vision: Left Cancer: No Psychosocial: Yes Eating Disorder, Sleep Difficulties, Anxiety, Depression Integumentary: No Blood Disorders: No Adverse Reaction/Blood Tranf: No Family Medical History Alcoholism 09 SISTER 09 SISTER Cancer 03 MOTHER Cataract 09 SISTER Family history: Cardiovascular disease 09 BROTHER (HEART ATTACK) Family history: Diabetes mellitus 09 SISTER Family history: Glaucoma 09 SISTER 09 SISTER Family history: Hypertension 09 BROTHER 09 BROTHER 09 BROTHER Family history: Osteoporosis 09 SISTER 09 SISTER Kidney disease 09 SISTER Seizure disorder Stroke 09 BROTHER No Family History of: Abdominal aortic aneurysm Cancer of colon Chest pain Congenital heart disease Congestive heart failure Cystic fibrosis Dementia Dysphagia Family history: Allergy Family history: Alzheimer's disease Family history: Arthritis Family history: Breast disease Family history: Coronary thrombosis Family history: Gastrointestinal disease Headache Hearing loss Heart disease Hereditary disease History of - anemia History of - disorder History of - respiratory disease History of drug abuse Human immunodeficiency virus (HIV) seropositivity Hypercholesterolemia Infertile Malignant neoplasm of lung Myocardial infarction Parkinson's disease Prostate cancer Psychotic disorder Tuberculosis Visual impairment Heart Disease, Cancer, CVA, Diabetes Physical Exam Vital Signs Vital Signs - First Documented 01/21/22 10:19 Temp 35.6 Pulse 89 Resp 20 B/P (MAP) 181/102 (128) Pulse Ox 95 O2 Delivery Room Air Capillary Refill : Less Than 3 Seconds Height, Weight, BMI Height: 5'0.00" Weight: 220lbs. 0.3oz. 99.390789on; 30.00 BMI Method:Stated General Appearance: WD/WN, no apparent distress HEENT: PERRL/EOMI Cardiovascular: regular rate, rhythm Respiratory: lungs clear, normal breath sounds, no respiratory distress, no accessory muscle use Shoulder: normal inspection, no evidence of injury, normal ROM, soft tissue tenderness (over the deltoid) Elbow/Forearm: normal inspection, normal ROM, swelling (Swelling noted over the dorsal proximal forearm. She has ecchymosis. There is quite a bit of induration but no overlying erythema. No central fluctuance. The bruising extends from approximately the midpoint of the dorsal forearm to the elbow. There is no effusion around the elbow, she has good range of motion of the elbow and no bony tenderness.) Wrist: Yes normal inspection, Yes non-tender, Yes no evidence of injury, Yes normal ROM Hand: normal inspection, non-tender, no evidence of injury, normal ROM Neurologic/Tendon: normal sensation, normal motor functions, normal tendon functions Neurologic/Psychiatric: alert, normal mood/affect, oriented x 3 Skin: normal color, warm/dry, other (bruising as above) Progress/Results/Core Measures Results/Orders Lab Results Laboratory Tests Test 01/21/22 00:00 01/21/22 10:55 Range/Units Sodium Level 142 135-145 MMOL/L Chloride Level 106 98-107 MMOL/L My Orders Orders - BOBO OLEARY MD Cbc With Automated Diff (01/21/22 10:26) Basic Metabolic Panel (01/21/22 10:26) Vital Signs/I&O 01/21/22 10:19 Temp 35.6 Pulse 89 Resp 20 B/P (MAP) 181/102 (128) Pulse Ox 95 O2 Delivery Room Air Blood Pressure Mean: 128 Departure Departure-Patient Inst. Referrals: [facility] (PCP) Primary Care Physician JORDY NAPOLES APRN (Family) Primary Care Physician BOBO OLEARY MD Jan 21, 2022 10:29
[2022-01-21 11:17] LABS: CHLORIDE 106 MMOL/L (98-107); SODIUM 142 MMOL/L (135-145)
[2022-01-21 11:18] LABS: GLUCOSE 108 MG/DL (70-105)
[2022-01-21 11:20] LABS: CARBON DIOXIDE 19 MMOL/L (21-32)
[2022-01-21 11:22] LABS: CREATININE SERUM 0.75 MG/DL (0.60-1.30); GFR ESTIMATED 86
[2022-01-21 11:23] LABS: BUN/CREATININE RATIO 17
[2022-01-21 11:27] LABS: BASOPHILS # (AUTO) 0.1 10^3/uL (0.0-0.1); BASOPHILS % (AUTO) 1 % (0-10); EOSINOPHILS # (AUTO) 0.3 10^3/uL (0.0-0.3); EOSINOPHILS % (AUTO) 4 % (0-10); HEMATOCRIT 47 % (35-52); LYMPHOCYTES # (AUTO) 2.4 10^3/uL (1.0-4.0); LYMPHOCYTES % (AUTO) 30 % (12-44); MEAN CORPUSCULAR HEMOGLOBIN 33 pg (25-34); MEAN CORPUSCULAR HGB CONC 32 g/dL (32-36); MEAN CORPUSCULAR VOLUME 102 fL (80-99); MEAN PLATELET VOLUME 9.5 fL (9.0-12.2); MONOCYTES # (AUTO) 0.6 10^3/uL (0.0-1.0); MONOCYTES % (AUTO) 8 % (0-12); NEUTROPHILS # (AUTO) 4.7 10^3/uL (1.8-7.8); NEUTROPHILS % (AUTO) 58 % (42-75); PLATELET COUNT 139 10^3/uL (130-400); WHITE BLOOD COUNT 8.1 10^3/uL (4.3-11.0)
== END 2022-01-21 12:28 | disposition left against medical advice (07) ==
LOC: EDUNIT# 10:05 → ER 10:07
DX: S50.11XA Contusion of right forearm, initial encounter (principal); W06.XXXA Fall from bed, initial encounter
CPT/HCPCS: 36415; 80048; 85025

== ENCOUNTER → 2022-01-29 | Outpatient (CLI) | payer MEDICARE ==
[2022-01-29 17:11] LABS: BASOPHILS # (AUTO) 0.1 10^3/uL (0.0-0.1); BASOPHILS % (AUTO) 1 % (0-10); EOSINOPHILS # (AUTO) 0.3 10^3/uL (0.0-0.3); EOSINOPHILS % (AUTO) 3 % (0-10); HEMATOCRIT 48 % (35-52); HEMOGLOBIN 15.6 g/dL (11.5-16.0); LYMPHOCYTES # (AUTO) 3.1 10^3/uL (1.0-4.0); LYMPHOCYTES % (AUTO) 29 % (12-44); MEAN CORPUSCULAR HEMOGLOBIN 33 pg (25-34); MEAN CORPUSCULAR HGB CONC 32 g/dL (32-36); MEAN CORPUSCULAR VOLUME 100 fL (80-99); MEAN PLATELET VOLUME 9.5 fL (9.0-12.2); MONOCYTES # (AUTO) 0.7 10^3/uL (0.0-1.0); MONOCYTES % (AUTO) 7 % (0-12); NEUTROPHILS # (AUTO) 6.4 10^3/uL (1.8-7.8); NEUTROPHILS % (AUTO) 60 % (42-75); PLATELET COUNT 157 10^3/uL (130-400); WHITE BLOOD COUNT 10.6 10^3/uL (4.3-11.0)
[2022-01-29 17:20] LABS: BILIRUBIN,URINE NEGATIVE (NEGATIVE); CLARITY,URINE CLEAR; COLOR,URINE YELLOW; GLUCOSE, URINE (UA) 3+ (NEGATIVE); KETONES,URINE NEGATIVE (NEGATIVE); LEUKOCYTE ESTERASE ,URINE TRACE (NEGATIVE); NITRITE,URINE NEGATIVE (NEGATIVE); PH,URINE 5.5 (5-9); PROTEIN,URINE NEGATIVE (NEGATIVE)
[2022-01-29 17:26] LABS: POTASSIUM 3.9 MMOL/L (3.6-5.0)
[2022-01-29 17:27] LABS: CALCIUM 9.4 MG/DL (8.5-10.1)
[2022-01-29 17:32] LABS: CREATININE SERUM 0.9 MG/DL (0.60-1.30)
--- NOTE | 2022-01-29 17:40 | Diagnostic Imaging Report ---
INDICATION: Chest pain. EXAMINATION: PA and lateral chest. There is some bilateral perihilar discoid atelectasis. There are no infiltrates, effusions or pneumothoraces. Heart size and pulmonary vascularity are normal. IMPRESSION: Bilateral perihilar discoid atelectasis. Dictated by: Dictated on workstation # [id number]
[2022-01-29 18:11] LABS: INR 0.9 (0.8-1.4); PROTHROMBIN TIME PATIENT 12.3 SEC (12.2-14.7)
[2022-01-29 18:12] LABS: BACTERIA,URINE MODERATE /HPF
[2022-01-29 18:13] LABS: HYALINE CASTS, URINE RARE /LPF; YEAST,URINE FEW /HPF
== END ==
LOC: RAD 16:27
PROVIDERS: ATTEND Orthopaedic Surgery
DX: Z01.89 Encounter for other specified special examinations (principal); J98.11 Atelectasis
CPT/HCPCS: 36415; 71046; 80048; 81000; 83036; 85025; 85610; 85730; 87088

== ENCOUNTER → 2022-01-29 | Outpatient (CLI) | payer MEDICARE ==
--- NOTE | 2022-01-29 15:36 | Diagnostic Imaging Report ---
INDICATION: Right hip pain. TIME OF EXAM: 03:03 p.m. TECHNIQUE: Two views of the right hip are obtained. FINDINGS: There are osteoarthritic changes of the right hip with superior and medial joint space narrowing. Femoroacetabular alignment is normal. The femoral head and neck are intact. No fractures are seen. IMPRESSION: Degenerative changes of the right hip. No acute bony abnormality is detected. Dictated by: Dictated on workstation # [id number]
== END ==
LOC: ORTHO 14:46
PROVIDERS: ATTEND Orthopaedic Surgery
DX: M16.11 Unilateral primary osteoarthritis, right hip (principal)
CPT/HCPCS: 73502; G0463; 99203

== ENCOUNTER 2022-02-03 05:35 | Outpatient (CLI) | payer MEDICARE ==
[~2022-02-03] VITALS: Ht 152.4 cm; Wt 95.5 kg
[2022-02-04] MEDS ORDERED: RT-ALBUINH IH (16:38)
[2022-02-04] MEDS ORDERED: LIRA0.6P3 SQ (16:38)
[2022-02-04] MEDS ORDERED: DAPA10TA PO (16:38)
[2022-02-04] MEDS ORDERED: CYCL10TA25 PO (16:38)
[2022-02-04] MEDS ORDERED: INSU100I10 SQ ×2 (16:38)
[2022-02-04] MEDS ORDERED: IBUP-1773 PO (16:38)
[2022-02-04] MEDS ORDERED: ACHD5005 PO (16:38)
[2022-02-04] MEDS ORDERED: ALBU2.5V4 INH (16:38)
== END 2022-02-04 17:01 | disposition home or self-care (01) ==
LOC: PREOP 05:35
PROVIDERS: ATTEND Orthopaedic Surgery
DX: Z01.818 Encounter for other preprocedural examination (principal)

== ENCOUNTER → 2022-02-04 | Outpatient (CLI) | payer MEDICARE ==
[~2022-02-04] MED LIST changes: +ALBU2.5V4 INH; +DAPA10TA PO; +IBUP-1773 PO; +INSU100I10 SQ; +LIRA0.6P3 SQ
[2022-02-04 09:49] LABS: BILIRUBIN,URINE NEGATIVE (NEGATIVE); CLARITY,URINE CLEAR; COLOR,URINE YELLOW; GLUCOSE, URINE (UA) 3+ (NEGATIVE); KETONES,URINE NEGATIVE (NEGATIVE); LEUKOCYTE ESTERASE ,URINE TRACE (NEGATIVE); NITRITE,URINE NEGATIVE (NEGATIVE); PH,URINE 5.5 (5-9); PROTEIN,URINE NEGATIVE (NEGATIVE)
[2022-02-04 10:04] LABS: BACTERIA,URINE MODERATE /HPF
== END ==
LOC: LAB 09:19
PROVIDERS: ATTEND Orthopaedic Surgery
DX: Z01.89 Encounter for other specified special examinations (principal); M16.11 Unilateral primary osteoarthritis, right hip
CPT/HCPCS: 81000; 87088

== ENCOUNTER 2022-02-09 06:37 | Observation (INO) | payer MEDICARE ==
[~2022-02-09] VITALS: Ht 152.4 cm; Wt 95.5 kg
[2022-02-09] VITALS (12 sets, daily range): BP systolic 117–147; BP diastolic 80–96
[2022-02-09 07:33] LABS: AMPHETAMINE SCREEN, URINE NEGATIVE (NEGATIVE); BARBITURATE SCREEN URINE NEGATIVE (NEGATIVE); BENZODIAZEPINES SCREEN URINE NEGATIVE (NEGATIVE); CANNABINOID SCREEN, URINE NEGATIVE (NEGATIVE); COCAINE SCREEN URINE NEGATIVE (NEGATIVE); METHADONE STAT NEGATIVE (NEGATIVE); OPIATE SCREEN URINE NEGATIVE (NEGATIVE); OXYCODONE STAT NEGATIVE (NEGATIVE); PROPOXYPHENE STAT NEGATIVE (NEGATIVE); TRICYCLIC ANTIDEPRESSANTS SCRE POSITIVE (NEGATIVE)
[2022-02-09] MEDS ORDERED: ceFAZolin 2 GM IV Premixed 50 ML ONE (07:57)
[2022-02-09] MEDS: LACTATED RINGERS 1,000 ML IV PRN ×2 (08:12→09:02)
[2022-02-09] MEDS ORDERED: ceFAZolin 2 GM/50 ML (PRE-MIXED) IV ONE (08:15)
--- NOTE | 2022-02-09 08:15 | Progress Note-Pre Operative ---
Pre-Operative Progress Note H&P Reviewed The H&P was reviewed, patient examined and no changes noted. Date Seen by Provider: Feb 09, 2022 Time Seen by Provider: 08:10 Date H&P Reviewed: Feb 09, 2022 Time H&P Reviewed: 08:10 Pre-Operative Diagnosis: Right Hip Primary Osteoarthritis RUDY CHOW MD Feb 09, 2022 08:15
[2022-02-09] MEDS ORDERED: fentaNYL INJ 100 MCG/2 ML AMP ONE ×2 (08:17→11:12)
[2022-02-09] MEDS ORDERED: MIDAZOLAM 2 MG/2 ML (VERSED) VIAL ONE (08:17)
[2022-02-09] MEDS ORDERED: LIDOCAINE PF 2% 5 ML (XYLOCAINE) VIAL ONE (08:50)
[2022-02-09] MEDS ORDERED: ROCURONIUM 50 MG/5 ML (ZEMURON) VIAL IV ONE (08:50)
[2022-02-09] MEDS ORDERED: proPOfol 200 MG/20 ML (DIPRIVAN) VIAL IV ONE (08:50)
[2022-02-09] MEDS ORDERED: SEVOFLURANE (ULTANE) 15 ML INHAL SOLN ONE (08:51)
[2022-02-09] MEDS ORDERED: TRANEXAMIC ACID 3,000 MG/150 ML NS IRRIGATION IR ONE ×2 (09:15)
[2022-02-09] MEDS ORDERED: BUPIVACAINE 0.5% 30 ML (SENSORCAINE) VIAL ONE (09:58)
[2022-02-09] MEDS ORDERED: DESFLURANE (SUPRANE) 15 ML INHAL SOLN ONE (10:00)
--- NOTE | 2022-02-09 10:43 | Operative Report - Ortho ---
Operative Report Surgeon (s)/Business Writer (s) Surgeon RUDY CHOW MD Business Writer n/a Pre-Operative Diagnosis Right Hip Primary Osteoarthritis Post-Operative Diagnosis same Operative Report Date of Procedure: Feb 09, 2022 Name of Procedure Performed: Right Total Hip Arthroplasty Description & Findings After obtaining informed consent and marking the patient in the preoperative holding area, the patient did receive antibiotics and was taken to the operating room. General anesthesia was induced and patient was positioned in the lateral decubitus position with the right side up. Right lower extremity was prepped and draped in the usual sterile fashion. Surgical timeout was taken. Posterolateral approach was utilized. Capsule and external rotators were taken down in one layer. Hip was dislocated without difficulty. Femoral neck osteotomy was performed and femoral head was removed. Acetabulum was exposed. Labrum and soft tissue was removed from the acetabulum. Sequential reaming was began beginning with a 43 mm reamer and reaming to a 48 mm. 48 mm trial was placed and had good fit. Trial was removed and the acetabulum was lavaged with normal saline; a 48 mm cup was impacted into place and had excellent press fit. A trial liner was put into place. Attention was turned to the femoral side, a ByteLight cutter osteotome was used to removed bone near the greater trochanter. Canal finder was inserted followed by the lateralizing reamer. Sequential broaching was began with a 0 and was broached to a 3. Trial 127 degree neck and neutral mm head were put into place. Hip was located and was found to have grossly equal leg lengths; the hip was stable in position of sleep, and stable in flexion and internal rotation. This was accepted. Hip was dislocated. Acetabulum was exposed. Trial liner was removed and a polyethylene liner was locked into place; freer was used to check the locking mechanism. Attention was turned back to the femur, broach was jim silas and the canal was irrigated. A size 3 Accolade II was impacted into place and set at the same level as the broach. A neutral ceramic head was impacted onto the hawkins taper of the stem. Hip was once again located and found to have grossly equal leg lengths with stability in position of sleep as well as flexion and internal rotation. The wound was irrigated. Tranexamic acid was applied for hemostasis. Capsular layer was repaired with #2 fiberwire. The fascial layer was closed with #1 Ethibond. The subcutaneous layer was closed with 2-0 Vicryl. Skin was closed with nola. Wound was dressed with xeroform, 4x4s, ABD, and tape. Patient was placed in abduction pillow and transferred to the hospital bed without difficulty and was stable to the recovery room. Anesthesia Type General Estimated Blood Loss 200 mL Specimen(s) collected/removed None RUDY CHOW MD Feb 09, 2022 10:43
[2022-02-09] MEDS ORDERED: BISACODYL 5 MG (DULCOLAX) TABLET PO PRN (10:45)
[2022-02-09] MEDS ORDERED: ACETAMINOPHEN 500 MG TAB (TYLENOL) PO PRN (10:45)
[2022-02-09] MEDS ORDERED: MILK OF MAGNESIA 400 MG/5 ML 30 ML UDC PO PRN (10:45)
--- NOTE | 2022-02-09 10:51 | Anesthesia-General Post-Op ---
General Patient Condition Mental Status/LOC: Same as Preop Cardiovascular: Satisfactory Nausea/Vomiting: Absent Respiratory: Satisfactory Pain: Controlled Complications: Absent Post Op Complications Complications None Follow Up Care/Instructions Patient Instructions None needed. Anesthesia/Patient Condition Patient Condition Patient is doing well, no complaints, stable vital signs, no apparent adverse anesthesia problems. No complications reported per nursing. SOLA HASKINS CRNA Feb 09, 2022 10:51
[2022-02-09] MEDS ORDERED: RT-ALBUTEROL SULF 2.5 MG/3 ML PRE-MIX VIAL INH SCH (11:00)
[2022-02-09] MEDS ORDERED: NON-FORMULARY MEDICATION 1 EA EA (Dapagliflozin Propanediol (Farxiga) 10 MG) PO SCH (11:00)
[2022-02-09] MEDS ORDERED: fentaNYL INJ 100 MCG/2 ML AMP IVP ONE (11:00)
[2022-02-09] MEDS ORDERED: RX-CYCLOBENZAPRINE 10 MG (FLEXERIL) TAB PPK#3 PO SCH (11:00)
[2022-02-09] MEDS ORDERED: ONDANSETRON 4 MG/2 ML (SDV) Z0FRAN IVP PRN (11:00)
--- NOTE | 2022-02-09 11:57 | Diagnostic Imaging Report ---
INDICATION: Hip replacement. TIME OF EXAM: 11:27 a.m. FINDINGS: Single view of the pelvis demonstrates postop changes of total right hip arthroplasty. Prosthetic elements are in good position. There are overlying skin nola. Left hip is intact. IMPRESSION: Satisfactory postop appearance to the right hip. Dictated by: Dictated on workstation # [id number]
[2022-02-09] MEDS: GABAPENTIN 600 MG (NEURONTIN) TAB PO SCH ×2 (12:26→20:55)
[2022-02-09] MEDS: morphine INJ 4 MG/ML 1 ML (VIAL/SYRINGE) IVP PRN ×2 (12:27→15:26)
[2022-02-09] MEDS: ceFAZolin INJECTION 1,000 MG in NS (IVPB) 50 ML IV SCH ×2 (12:29→17:51)
[2022-02-09] MEDS: NS IV 1000 ML 1,000 ML IV SCH ×2 (12:30→17:52)
[2022-02-09] MEDS ORDERED: RT-ALBUTEROL SULF 2.5 MG/3 ML PRE-MIX VIAL INH PRN (13:30)
--- NOTE | 2022-02-09 14:15 | Physical Therapy Evaluation ---
PT Evaluation-General Medical Diagnosis Admission Date Feb 09, 2022 at 06:37 Medical Diagnosis: right SALTY Onset Date: Feb 09, 2022 Therapy Diagnosis Therapy Diagnosis: generalized weakness/debility Height/Weight Height (Feet): 5 Height (Inches): 0.00 Weight (Pounds): 220 Weight (Ounces): 0.3 Precautions Precautions/Isolations: Standard Precautions Weight Bear Status Right Lower Extremity: Right Weight Bearing/Tolerated Left Lower Extremity: Left Full Weight Bearing Referral Physician: Leyda Reason for Referral: Evaluation/Treatment Medical History Pertinent Medical History: COPD, DM, OA, Smoking Current History s/p elective right THR Reviewed History: Yes Social History Home: Single Level Current Living Status: Other Family Prior Prior Level of Function SCALE: Activities may be completed with or without assistive devices. 9-Ovpkxgygkj-mleswgy completes the activity by him/herself with no assistance from a helper. 5-Set-up or Clean-up Assistance-helper sets up or cleans up; patient completes activity. Mcconnell assists only prior to or following the activity. 4-Supervision or Touching Assistance-helper provides verbal cues and/or touching/steadying and/or contact guard assistance as patient completes activity. Assistance may be provided throughout the activity or intermittently. 3-Partial/Moderate Assistance-helper does LESS THAN HALF the effort. Mcconnell lifts, holds or supports trunk or limbs, but provides less than half the effort. 2-Substantial/Maximal Assistance-helper does MORE THAN HALF the effort. Mcconnell lifts or holds trunk or limbs and provides more than half the effort. 3-Raltsfewk-tgkhmo does ALL the effort. Patient does none of the effort to complete the activity. Or, the assistance of 2 or more helpers is required for the patient to complete the activity. If activity was not attempted, code reason: 7-Patient Refused. 9-Not Applicable-not attempted and the patient did not perform the activity before the current illness, exacerbation or injury. 10-Not Attempted due to Environmental Limitations-(lack of equipment, weather restraints, etc.). 88-Not Attempted due to Medical Conditions or Safety Concerns. Bed Mobility: 6 Transfers (B,C,W/C): 6 Gait: 6 Stairs: 6 Indoor Mobility (Ambulation): Independent Stairs: Independent Prior Devices Use: None PT Evaluation-Current Subjective Patient agrees to PT. Rated right hip pain 8/10 with meds issued Pain Numeric Pain Scale: 8 Location: Right Location Body Site: Hip Pain Description: Acute Objective Patient Orientation: Normal For Age Attachments: Oxygen, Ballard Catheter, IV ROM/Strength ROM Lower Extremities right hip precautions/left LE WFL Strength Lower Extremities right LE 3/5 grossly/left LE 4/5 grossly Integumentary/Posture Bladder Incontinence: Ballard Cath Posture WFL Neuromuscular (Tone, Coordination, Reflexes) grossly intact Sensory Vision: Functional Hearing: Functional Sensation Right Lower Extremit: Intact Sensation Left Lower Extremity: Intact Transfers Roll Left to Right (QC): 3 Sit to Lying (QC): 3 Lying to Sitting/Side of Bed(Q: 3 Sit to Stand (QC): 3 Gait Does the Patient Walk?: Yes Mode of Locomotion: Walk Anticipated Mode of Locomotion: Walk Walk 10 feet (QC): 3 Walk 50 ft with 2 Turns(QC): 88 Walk 150 ft (QC): 88 Distance: 10' Gait Assistive Device: FWW Balance Sitting Static: Normal Sitting Dynamic: Normal Standing Static: Fair Standing Dynamic: Fair Assessment/Needs 71 y.o. female, will benefit from skilled PT to address functional strength and mobility to improve current LOF to safely return to home at maximum LOF. Rehab Potential: Fair PT Residential Goals Video Game Designer Goals PT Residential Goals Time Frame: Feb 21, 2022 Roll Left & Right (QC): 6 Sit to Lying (QC): 6 Lying-Sitting on Side/Bed(QC): 6 Sit to Stand (QC): 6 Chair/Vuu-ed-Kpgaq Xfer(QC): 6 Toilet Transfer (QC): 6 Walk 10 feet (QC): 5 Walk 50ft with 2 Turns (QC): 5 Walk 150 ft (QC): 5 1 Step (curb) (QC): 4 4 Steps (QC): 4 PT Plan Problem List Problem List: Activity Tolerance, Balance, Gait, Transfer, Bed Mobility Treatment/Plan Treatment Plan: Continue Plan of Care Treatment Plan: Bed Mobility, Education, Functional Activity Agustin, Functional Strength, Gait, Safety, Therapeutic Exercise, Transfers Treatment Duration: Feb 21, 2022 Frequency: 11 times per week Estimated Hrs Per Day: .5 hour per day Patient and/or Family Agrees t: Yes Time/GCodes Time In: 1330 Time Out: 1350 Total Billed Treatment Time: 20 Total Billed Treatment 1 visit EVModC 20 min REDD MENDOZA PT Feb 09, 2022 14:15
[2022-02-09] MEDS: IBUPROFEN 600 MG (MOTRIN) TAB PO PRN (15:27)
[2022-02-09] MEDS ORDERED: fentaNYL PATCH 25 MCG (DURAGESIC) TD ONE ×2 (16:45→18:30)
[2022-02-09] MEDS: ASPIRIN E.C. 81 MG (ECOTRIN) TAB PO SCH (17:35)
[2022-02-09] MEDS: ONDANSETRON 4 MG/2 ML (SDV) Z0FRAN IV PRN (20:52)
[2022-02-09] MEDS: DOCUSATE SODIUM 100 MG (COLACE) CAP PO SCH (20:54)
[2022-02-09] MEDS: AMITRIPTYLINE 25 MG (ELAVIL) TAB PO SCH (20:55)
[2022-02-09] MEDS: meTOprolol SUCCINATE 100 MG (TOPROL XL) TAB PO SCH (20:55)
[2022-02-09] MEDS ORDERED: NON-FORMULARY MEDICATION 1 EA EA (Insulin Glargine,Hum.rec.anlog (Lantus) 25 UNIT) SQ SCH (21:00)
[2022-02-10 04:59] VITALS: BP 96/58
[2022-02-10] MEDS: MULTIVIT W/MINERALS TAB (THERAGRAN M) PO SCH (05:46)
[2022-02-10] MEDS: NS IV 1000 ML 1,000 ML IV SCH ×2 (05:46→17:39)
[2022-02-10 06:30] LABS: HEMOGLOBIN 12.1 g/dL (11.5-16.0)
[2022-02-10] MEDS ORDERED: UMECLIDINIUM BROMIDE (INCRUSE ELLIPTA) 7'S IH SCH (08:00)
[2022-02-10] MEDS ORDERED: RT--FLUTICASONE/SALMETEROL 232-14 (AIRDUO RespiCLICK) IH SCH (08:00)
[2022-02-10] MEDS: GABAPENTIN 600 MG (NEURONTIN) TAB PO SCH ×3 (08:20→19:31)
[2022-02-10] MEDS: DOCUSATE SODIUM 100 MG (COLACE) CAP PO SCH ×2 (08:20→19:29)
[2022-02-10] MEDS: ASPIRIN E.C. 81 MG (ECOTRIN) TAB PO SCH ×2 (08:20→17:39)
[2022-02-10] MEDS: busPIRone 10 MG (BUSPAR) TAB PO SCH (08:20)
[2022-02-10] MEDS: PANTOPRAZOLE 20 MG TABLET (PROTONIX) PO SCH (08:21)
[2022-02-10] MEDS: meTOprolol SUCCINATE 100 MG (TOPROL XL) TAB PO SCH ×2 (08:26→19:34)
--- NOTE | 2022-02-10 08:29 | Progress Note - Ortho ---
Progress Note Subjective Date of Exam 02/10/22 Chief Complaint POD #1 R SALTY HPI/Events since last exam pain reasonably controlled, able to stand and take a few steps yesterday, interested in inpatient rehab if an option Review of Systems - Allergies: Coded Allergies: Sulfa (Sulfonamide Antibiotics) (Verified Allergy, Unknown, 02/04/22) latex (Verified Allergy, Unknown, RASH, 02/04/22) lisinopril (Verified Allergy, Unknown, EDEMA, 02/04/22) metformin (Verified Allergy, Unknown, EDEMA, 02/04/22) Home Meds Active Scripts Atorvastatin Calcium (Atorvastatin Calcium) 40 Mg Tablet, 40 MG PO HS, #90 TAB 0 Refills LAST FILLED 10-14-2019 #90 Prov:DOROTEO HORAN MD 03/14/20 Metoprolol Succinate (Metoprolol Succinate) 100 Mg Tab.er.24h, 100 MG PO BID, #60 TAB 0 Refills Prov:DOROTEO HORAN MD 03/14/20 Insulin Glargine,Hum.rec.anlog (Lantus) 100 Unit/1 Ml Vial, 25 UNIT SQ HS, #10 VIAL 0 Refills Prov:DOROTEO HORAN MD 03/14/20 Amitriptyline HCl (Amitriptyline HCl) 25 Mg Tablet, 25 MG PO HS, #30 TAB 0 Refills LAST FILLED 10-14-2019 #90 Prov:DOROTEO HORAN MD 03/14/20 Reported Medications Liraglutide (Victoza 3-Segundo) 0.6 Mg/0.1 Ml (18 Mg/3 Ml) Pen.injctr, 1.8 MG SQ DAILY, EA 02/04/22 Albuterol Sulfate (PROAIR HFA) 1 Puff Puff, 2 PUFF IH Q4H, EA 1 PUFF = 90 MCG 02/04/22 Insulin Glargine,Hum.rec.anlog (Lantus Solostar) 100 Unit/Ml (3 Ml) Insuln.pen, 15 UNIT SQ EVENING, EA 02/04/22 Insulin Glargine,Hum.rec.anlog (Lantus Solostar) 100 Unit/Ml (3 Ml) Insuln.pen, 25 UNIT SQ DAILY, EA 02/04/22 Ibuprofen (Ibuprofen) 600 Mg Tablet, 600 MG PO Q6H PRN for PAIN-MILD, TAB 02/04/22 Hydrocodone/Acetaminophen (Hydrocodone-Acetamin 5-325 mg) 5 Mg-325 Mg Tablet, 1 TAB PO Q4H PRN for PAIN-MODERATE (5-7), TAB 02/04/22 Dapagliflozin Propanediol (Farxiga) 10 Mg Tablet, 10 MG PO UD, TAB 02/04/22 Cyclobenzaprine HCl (Cyclobenzaprine HCl) 10 Mg Tablet, 10 MG PO UD, TAB 02/04/22 Albuterol Sulfate (Albuterol Sulfate) 2.5 Mg/3 Ml (0.083 %) Vial.neb, 2.5 MG INH UD, EA 02/04/22 Omeprazole (Omeprazole) 20 Mg Tab.rap.dr, 20 MG PO DAILY, EA 05/21/21 Liraglutide (Victoza 2-Segundo) 0.6 Mg/0.1 Ml Pen.injctr, 0.6 MG SQ DAILY, EA 05/21/21 Buspirone HCl (Buspirone HCl) 10 Mg Tablet, 10 MG PO, TAB 05/21/21 Fluticasone/Umeclidin/Vilanter (Trelegy Ellipta 100-62.5-25) 1 Each Blst.w.dev, 1 EACH IH DAILY 05/21/21 Gabapentin (Gabapentin) 600 Mg Tablet, 600 MG PO TID, TAB 05/21/21 Citalopram Hydrobromide (Citalopram HBr) 20 Mg Tablet, 20 MG PO DAILY, TAB 03/12/20 Objective Exam R Hip: Dressing C/D/I, +DF of ankle, no s/s of DVT Vital Signs Vital Signs Date Time Temp Pulse Resp B/P (MAP) Pulse Ox O2 Delivery O2 Flow Rate FiO2 02/10/22 04:59 36.1 88 18 96/58 (71) 94 Nasal Cannula 2.00 02/09/22 23:55 36.3 94 20 137/80 (99) 94 Nasal Cannula 2.00 02/09/22 20:32 Nasal Cannula 2.00 02/09/22 19:48 36.2 97 20 143/94 (110) 92 Nasal Cannula 2.00 02/09/22 16:00 36.2 94 20 135/94 (108) 97 Nasal Cannula 2.00 02/09/22 13:28 95 Nasal Cannula 2.00 02/09/22 12:16 35.8 90 20 136/82 (100) 92 Nasal Cannula 2.00 02/09/22 11:55 Nasal Cannula 2 02/09/22 11:40 36.2 16 144/88 (106) 94 Nasal Cannula 2 02/09/22 11:30 16 137/87 (104) 92 Nasal Cannula 2 02/09/22 11:30 Nasal Cannula 2 02/09/22 11:20 16 133/88 (103) 92 OxyMask 2 02/09/22 11:15 OxyMask 2 02/09/22 11:10 16 117/84 (95) 92 OxyMask 2 02/09/22 11:00 16 134/83 (100) 93 OxyMask 3 02/09/22 11:00 OxyMask 3 02/09/22 10:50 16 135/84 (101) 94 OxyMask 4 02/09/22 10:45 OxyMask 6 02/09/22 10:45 36.8 22 135/91 (106) 96 OxyMask 6 I & O 02/10/22 07:00 Intake Total 3420 ml Output Total 1175 ml Balance 2245 ml Lab Results Laboratory Tests 02/09/22 21:10: Glucometer 192H 02/10/22 06:13: Hemoglobin 12.1, Hematocrit 38 Imaging Postop AP Pelvis with total hip components in good position, no complicating feature Assessment and Plan Assessment Right Hip Primary Osteoarthritis s/p Right Total Hip Arthroplasty Problem List Right Hip Primary Osteoarthritis s/p Right Total Hip Arthroplasty Plan PT/OT DVT Prophylaxis Inpatient Rehab Consult Final Diagonsis Right Hip Primary Osteoarthritis s/p Right Total Hip Arthroplasty Level of the visit: Level 3 (postop global) RUDY CHOW MD Feb 10, 2022 08:29
[2022-02-10 08:31] VITALS: BP 103/67
[2022-02-10] MEDS ORDERED: NON-FORMULARY MEDICATION 1 EA EA (Liraglutide (Victoza 2-Pak) 0.6 MG) SQ SCH (09:00)
[2022-02-10] MEDS ORDERED: NON-FORMULARY MEDICATION 1 EA EA (Liraglutide (Victoza 3-Pak) 1.8 MG) SQ SCH (09:00)
--- NOTE | 2022-02-10 09:45 | Physical Therapy Daily Note ---
PT Daily Note-Current Subjective Patient agrees to PT. Pain Numeric Pain Scale: 8 Location: Right Location Body Site: Hip Pain Description: Acute Mental Status Patient Orientation: Normal For Age Attachments: Oxygen, IV Transfers SCALE: Activities may be completed with or without assistive devices. 1-Koischmurt-opktkqj completes the activity by him/herself with no assistance from a helper. 5-Set-up or Clean-up Assistance-helper sets up or cleans up; patient completes activity. [place] assists only prior to or following the activity. 4-Supervision or Touching Assistance-helper provides verbal cues and/or touching/steadying and/or contact guard assistance as patient completes activity. Assistance may be provided throughout the activity or intermittently. 3-Partial/Moderate Assistance-helper does LESS THAN HALF the effort. [place] lifts, holds or supports trunk or limbs, but provides less than half the effort. 2-Substantial/Maximal Assistance-helper does MORE THAN HALF the effort. [place] lifts or holds trunk or limbs and provides more than half the effort. 1-Lcqtevtlx-xiihzo does ALL the effort. Patient does none of the effort to complete the activity. Or, the assistance of 2 or more helpers is required for the patient to complete the activity. If activity was not attempted, code reason: 7-Patient Refused. 9-Not Applicable-not attempted and the patient did not perform the activity before the current illness, exacerbation or injury. 10-Not Attempted due to Environmental Limitations-(lack of equipment, weather restraints, etc.). 88-Not Attempted due to Medical Conditions or Safety Concerns. Lying to Sitting/Side of Bed(Q: 3 Sit to Stand (QC): 3 Chair/Ttc-or-Fjcko Xfer(QC): 3 Weight Bearing Right Lower Extremity: Right Weight Bearing/Tolerated Left Lower Extremity: Left Full Weight Bearing Gait Training Distance: 75' Walk 10 feet (QC): 4 Walk 50 ft with 2 Turns(QC): 4 Gait Assistive Device: FWW steady, reciprocal pattern Exercises Supine Ex: Ankle pumps, Quad Set, Heel Slides Supine Reps: 12 Seated Therapy Exercises: Long arc quads Seated Reps: 12 Assessment Patient up in recliner with needs met. Continue to increase activity as tolerated by patient. Patient became diaphoretic during gait training requiring seated recovery period. PT Usp Goals Usp Goals PT Usp Goals Time Frame: Feb 21, 2022 Roll Left & Right (QC): 6 Sit to Lying (QC): 6 Lying-Sitting on Side/Bed(QC): 6 Sit to Stand (QC): 6 Chair/Rqb-kb-Lnnqu Xfer(QC): 6 Toilet Transfer (QC): 6 Walk 10 feet (QC): 5 Walk 50ft with 2 Turns (QC): 5 Walk 150 ft (QC): 5 1 Step (curb) (QC): 4 4 Steps (QC): 4 PT Plan Treatment/Plan Treatment Plan: Continue Plan of Care Treatment Plan: Bed Mobility, Education, Functional Activity Agustin, Functional Strength, Gait, Safety, Therapeutic Exercise, Transfers Treatment Duration: Feb 21, 2022 Frequency: 11 times per week Estimated Hrs Per Day: .5 hour per day Patient and/or Family Agrees t: Yes Time/GCodes Time In: 838 Time Out: 901 Total Billed Treatment Time: 23 Total Billed Treatment 1 visit EX 8 min GT 15 min REDD MENDOZA PT Feb 10, 2022 09:45
[2022-02-10] MEDS ORDERED: PATIENT MAY USE OWN MEDS, ALL MC SCH (11:15)
[2022-02-10 12:22] VITALS: BP 129/87
--- NOTE | 2022-02-10 12:42 | Occupational Therapy Eval ---
OT Evaluation-General/PLF Medical Diagnosis Admission Date Feb 09, 2022 at 06:37 Medical Diagnosis: right SALTY Onset Date: Feb 09, 2022 Therapy Diagnosis Therapy Diagnosis: decreased ADL status Height/Weight Height (Feet): 5 Height (Inches): 0.00 Weight (Pounds): 220 Weight (Ounces): 0.3 Precautions Precautions/Isolations: Standard Precautions Referral Physician: Leyda Referral Reason: Evaluation/Treatment Medical History Pertinent Medical History: COPD, DM, OA, Smoking Current History s/p elective R SALTY 02/09/22 Social History Home: Single Level Current Living Status: Other Family (sister) ADL-Prior Level of Function SCALE: Activities may be completed with or without assistive devices. 5-Oyyyijjsza-acmtsmp completes the activity by him/herself with no assistance from a helper. 5-Set-up or Clean-up Assistance-helper sets up or cleans up; patient completes activity. [place] assists only prior to or following the activity. 4-Supervision or Touching Assistance-helper provides verbal cues and/or touching/steadying and/or contact guard assistance as patient completes activity. Assistance may be provided throughout the activity or intermittently. 3-Partial/Moderate Assistance-helper does LESS THAN HALF the effort. [place] lifts, holds or supports trunk or limbs, but provides less than half the effort. 2-Substantial/Maximal Assistance-helper does MORE THAN HALF the effort. [place] lifts or holds trunk or limbs and provides more than half the effort. 8-Kcsmbnndx-mwvrqq does ALL the effort. Patient does none of the effort to complete the activity. Or, the assistance of 2 or more helpers is required for the patient to complete the activity. If activity was not attempted, code reason: 7-Patient Refused. 9-Not Applicable-not attempted and the patient did not perform the activity before the current illness, exacerbation or injury. 10-Not Attempted due to Environmental Limitations-(lack of equipment, weather restraints, etc.). 88-Not Attempted due to Medical Conditions or Safety Concerns. ADL PLOF Comments Pt reports IND with ADLs and functional mobility at PLOF, using a cane or walker as needed. Her sister has been completing cooking/cleaning and currency machine operator lately due to pt's difficulty getting around with her R hip. Pt has a tub/shower with a SC. Self Care: Independent Functional Cognition: Independent DME/Equipment: Bath Chair, Reachers, Tub/Shower, Toilet/Riser DME/Equipment Comments cane and walker OT Current Status Subjective Pt in bed, abduction pillow in place. Pt agreeable to OT eval/tx. Mental Status/Objective Patient Orientation: Person, Place, Time, Situation Attachments: Oxygen Current Upper Extremity ROM WFL, Pain in R forearm after a fall, pt has not had imaging complete but it is painful to touch. Upper Extremity Strength WFL ADL-Treatment Eating (QC): 6 Lower Body Dressing (QC): 2 On/Off Footwear (QC): 2 Other Treatments Pt in bed, agreeable to OT Tx. Pt provided information about PLOF and home set up. OT provided education on hip precautions (pt recalled 0/3), AE for LE dressing (sock aid/image scientist), and DME recommendations (Tub bench). Pt verbalized understanding of topics, further education on AE planned for follow up treatment sessions. Pt's lunch arrived, pt able to set up meal and eat independently. Post tx, pt in bed, call light in reach and all needs met. Education OT Patient Education: Correct positioning, Energy conservation, Modified ADL techniques, Progress toward Goal/Update tx plan, Purpose of tx/functional act ivities, Rehab process Teaching Recipient: Patient Response to Teaching: Verbalize Understanding OT Temperature Logging Operator Goals Temperature Logging Operator Goals Time Frame: Feb 27, 2022 Eating (QC): 6 Oral Hygiene (QC): 6 Toileting Hygiene (QC): 6 Shower/Bathe Self (QC): 4 Upper Body Dressing (QC): 5 Lower Body Dressing (QC): 4 On/Off Footwear (QC): 4 Additional Goals: 1-Demonstrate ADL Tasks, 2-Verbalize Understanding, 3- ImproveStrength/Agustin 1=Demonstrate adherence to instructed precautions during ADL tasks. 2=Patient will verbalize/demonstrate understanding of assistive devices/modifications for ADL. 3=Patient will improve strength/tolerance for activity to enable patient to perform ADL's. OT Education/Plan Problem List/Assessment Assessment: Decreased Activ Tolerance, Decreased UE Strength, Impaired Funct Balance, Impaired I ADL's, Impaired Self-Care Skills Pt would benefit from skilled OT services in order to increase safety and independence with ADLs/functional mobility, and for education on AE for LE dressing in order to maximize LOF for safe return home with her sister. Discharge Recommendations Plan/Recommendations: Continue POC Equpiment Recommendations-D/C: Extended Bath Bench, Sock Aide, Elastic Shoe Laces Treatment Plan/Plan of Care Patient would benefit from OT for education, treatment and training to promote independence in ADL's, mobility, safety and/or upper extremity function for ADL's. Plan of Care: ADL Retraining, Functional Mobility, UE Funct Exercise/Act Treatment Duration: Feb 27, 2022 Frequency: 3 times per week (3-5 times per week) Estimated Hrs Per Day: .25 hour per day Agreement: Yes Rehab Potential: Fair Time/GCodes Start Time: 11:11 Stop Time: 11:28 Total Time Billed (hr/min): 17 Billed Treatment Time DONOVAN Packer ADDISON OT Feb 10, 2022 12:42
[2022-02-10] MEDS: ONDANSETRON 4 MG/2 ML (SDV) Z0FRAN IV PRN (12:44)
[2022-02-10] MEDS ORDERED: LOSA25TA41 PO (12:51)
[2022-02-10] MEDS ORDERED: IBUP-2185 PO (12:51)
[2022-02-10] MEDS ORDERED: ATOR40TA70 PO (12:51)
[2022-02-10] MEDS ORDERED: MTP100TCR PO (12:51)
[2022-02-10] MEDS ORDERED: AMIT25TA9 PO (12:51)
[2022-02-10] MEDS: TRELEGY IH SCH (14:22)
[2022-02-10] MEDS: VICTOZA 18 MG/3 ML SQ SCH (14:22)
--- NOTE | 2022-02-10 14:28 | Physical Therapy Daily Note ---
PT Daily Note-Current Subjective Patient agrees to PT. Pain Numeric Pain Scale: 5-Moderate Pain Location: Right Location Body Site: Hip Pain Description: Acute Mental Status Patient Orientation: Normal For Age Attachments: Oxygen, [place] Catheter Transfers SCALE: Activities may be completed with or without assistive devices. 6-Omwvvpzwhb-wzljfrb completes the activity by him/herself with no assistance from a helper. 5-Set-up or Clean-up Assistance-helper sets up or cleans up; patient completes activity. [place] assists only prior to or following the activity. 4-Supervision or Touching Assistance-helper provides verbal cues and/or touching /steadying and/or contact guard assistance as patient completes activity. Assistance may be provided throughout the activity or intermittently. 3-Partial/Moderate Assistance-helper does LESS THAN HALF the effort. [place] lifts, holds or supports trunk or limbs, but provides less than half the effort. 2-Substantial/Maximal Assistance-helper does MORE THAN HALF the effort. [place] lifts or holds trunk or limbs and provides more than half the effort. 7-Brygzsmnx-gaxosi does ALL the effort. Patient does none of the effort to complete the activity. Or, the assistance of 2 or more helpers is required for the patient to complete the activity. If activity was not attempted, code reason: 7-Patient Refused. 9-Not Applicable-not attempted and the patient did not perform the activity before the current illness, exacerbation or injury. 10-Not Attempted due to Environmental Limitations-(lack of equipment, weather restraints, etc.). 88-Not Attempted due to Medical Conditions or Safety Concerns. Sit to Lying (QC): 3 Lying to Sitting/Side of Bed(Q: 3 Sit to Stand (QC): 3 Weight Bearing Right Lower Extremity: Right Weight Bearing/Tolerated Left Lower Extremity: Left Full Weight Bearing Gait Training Distance: 75' Walk 10 feet (QC): 3 Walk 50 ft with 2 Turns(QC): 3 Gait Assistive Device: FWW slow, antalgic gait sequence Exercises Supine Ex: Ankle pumps, Quad Set, Heel Slides Supine Reps: 12 Seated Therapy Exercises: Long arc quads Seated Reps: 12 Assessment Patient fatigues with minimal activity. Patient returned to bed with needs met. Increase activity as tolerated by patient. Reviewed hip precautions. PT Fci Goals Fci Goals PT Piling Cutter Goals Time Frame: Feb 21, 2022 Roll Left & Right (QC): 6 Sit to Lying (QC): 6 Lying-Sitting on Side/Bed(QC): 6 Sit to Stand (QC): 6 Chair/Ldi-ch-Wtcvt Xfer(QC): 6 Toilet Transfer (QC): 6 Walk 10 feet (QC): 5 Walk 50ft with 2 Turns (QC): 5 Walk 150 ft (QC): 5 1 Step (curb) (QC): 4 4 Steps (QC): 4 PT Plan Treatment/Plan Treatment Plan: Continue Plan of Care Treatment Plan: Bed Mobility, Education, Functional Activity Agustin, Functional Strength, Gait, Safety, Therapeutic Exercise, Transfers Treatment Duration: Feb 21, 2022 Frequency: 11 times per week Estimated Hrs Per Day: .5 hour per day Patient and/or Family Agrees t: Yes Time/GCodes Time In: 1325 Time Out: 1348 Total Billed Treatment Time: 23 Total Billed Treatment 1 visit EX 15 min GT 8 min REDD MENDOZA PT Feb 10, 2022 14:28
[2022-02-10 15:16] VITALS: BP 145/88
[2022-02-10] MEDS: AMITRIPTYLINE 25 MG (ELAVIL) TAB PO SCH (19:30)
[2022-02-10] MEDS: CYCLOBENZAPRINE 10 MG (FLEXERIL) TAB PO SCH (19:31)
[2022-02-10 20:00] VITALS: BP 164/82
[2022-02-10 23:12] VITALS: BP 113/80
[2022-02-11 04:06] VITALS: BP 132/83
[2022-02-11 05:48] LABS: HEMOGLOBIN 11.5 g/dL (11.5-16.0)
[2022-02-11] MEDS: NS IV 1000 ML 1,000 ML IV SCH ×3 (05:59→16:25)
[2022-02-11] MEDS: MULTIVIT W/MINERALS TAB (THERAGRAN M) PO SCH (05:59)
[2022-02-11] MEDS: TRELEGY IH SCH (07:30)
[2022-02-11 07:58] VITALS: BP 125/75
[2022-02-11] MEDS: busPIRone 10 MG (BUSPAR) TAB PO SCH (08:20)
[2022-02-11] MEDS: PANTOPRAZOLE 20 MG TABLET (PROTONIX) PO SCH (08:20)
[2022-02-11] MEDS: CYCLOBENZAPRINE 10 MG (FLEXERIL) TAB PO SCH ×2 (08:20→21:17)
[2022-02-11] MEDS: meTOprolol SUCCINATE 100 MG (TOPROL XL) TAB PO SCH ×2 (08:20→21:17)
[2022-02-11] MEDS: DOCUSATE SODIUM 100 MG (COLACE) CAP PO SCH ×2 (08:20→21:16)
[2022-02-11] MEDS: GABAPENTIN 600 MG (NEURONTIN) TAB PO SCH ×3 (08:20→21:17)
[2022-02-11] MEDS: ASPIRIN E.C. 81 MG (ECOTRIN) TAB PO SCH ×2 (08:20→17:21)
--- NOTE | 2022-02-11 09:04 | Physical Therapy Daily Note ---
PT Daily Note-Current Subjective Patient in restroom pre tx, agrees to PT, has 3/10 pain in right hip, patient is able to wipe herself when done. Appearance Patient in bed post tx with nurse call, phone, tray, all needs met. Mental Status Patient Orientation: Person, Place, Situation Attachments: Oxygen, IV abduction pillow Transfers SCALE: Activities may be completed with or without assistive devices. 9-Gfhabvqezz-lsiwvtj completes the activity by him/herself with no assistance from a helper. 5-Set-up or Clean-up Assistance-helper sets up or cleans up; patient completes activity. [place] assists only prior to or following the activity. 4-Supervision or Touching Assistance-helper provides verbal cues and/or touching/steadying and/or contact guard assistance as patient completes activity. Assistance may be provided throughout the activity or intermittently. 3-Partial/Moderate Assistance-helper does LESS THAN HALF the effort. [place] lifts, holds or supports trunk or limbs, but provides less than half the effort. 2-Substantial/Maximal Assistance-helper does MORE THAN HALF the effort. [place] lifts or holds trunk or limbs and provides more than half the effort. 2-Szywkshxq-pqqdsz does ALL the effort. Patient does none of the effort to c omplete the activity. Or, the assistance of 2 or more helpers is required for the patient to complete the activity. If activity was not attempted, code reason: 7-Patient Refused. 9-Not Applicable-not attempted and the patient did not perform the activity before the current illness, exacerbation or injury. 10-Not Attempted due to Environmental Limitations-(lack of equipment, weather restraints, etc.). 88-Not Attempted due to Medical Conditions or Safety Concerns. Roll Left & Right (QC): 3 Sit to Lying (QC): 3 Sit to Stand (QC): 3 Chair/Ijb-wc-Kugcz Xfer(QC): 4 Weight Bearing Right Lower Extremity: Right Weight Bearing/Tolerated Left Lower Extremity: Left Full Weight Bearing Gait Training Distance: 80' Walk 10 feet (QC): 4 Walk 50 ft with 2 Turns(QC): 4 Gait Persons Needed: 1 Gait Assistive Device: FWW slow, antalgic, pain increased during ambulation and patient had a hard time getting back to her room/bed Exercises Supine Ex: Ankle pumps, Quad Set, Glut sets, Heel Slides, Short Arc Quads Supine Reps: 10 Treatments bed mobility and transfers, ambulation, functional strengthening Assessment Current Status: Fair Progress patient had difficulty completing ambulation due to increase of pain in right hip PT Liner Inserter Goals Shelter Goals PT Shelter Goals Time Frame: Feb 21, 2022 Roll Left & Right (QC): 6 Sit to Lying (QC): 6 Lying-Sitting on Side/Bed(QC): 6 Sit to Stand (QC): 6 Chair/Tcy-yn-Nzuot Xfer(QC): 6 Toilet Transfer (QC): 6 Walk 10 feet (QC): 5 Walk 50ft with 2 Turns (QC): 5 Walk 150 ft (QC): 5 1 Step (curb) (QC): 4 4 Steps (QC): 4 PT Plan Problem List Problem List: Activity Tolerance, Functional Strength, Safety, Balance, Gait, Transfer, Bed Mobility, ROM Treatment/Plan Treatment Plan: Continue Plan of Care Treatment Plan: Bed Mobility, Education, Functional Activity Agustin, Functional Strength, Gait, Safety, Therapeutic Exercise, Transfers Treatment Duration: Feb 21, 2022 Frequency: 11 times per week Estimated Hrs Per Day: .5 hour per day Patient and/or Family Agrees t: Yes Safety Risks/Education Patient Education: Gait Training, Transfer Techniques, Correct Positioning, Safety Issues Teaching Recipient: Patient Teaching Methods: Demonstration, Discussion Response to Teaching: Reinforcement Needed Time/GCodes Time In: 830 Time Out: 850 Total Billed Treatment Time: 20 Total Billed Treatment 1 visit FA 20' ANTOINETTE KUO PT Feb 11, 2022 09:04
--- NOTE | 2022-02-11 10:55 | Progress Note - Ortho ---
Progress Note Subjective Date of Exam 02/11/22 Chief Complaint POD #2 R SALTY HPI/Events since last exam making progress with PT, having some ongoing pain with ambulation, wants to participate in inpatient rehab if it gets authorized Review of Systems - Allergies: Coded Allergies: Sulfa (Sulfonamide Antibiotics) (Verified Allergy, Unknown, 02/04/22) latex (Verified Allergy, Unknown, RASH, 02/04/22) lisinopril (Verified Allergy, Unknown, EDEMA, 02/04/22) metformin (Verified Allergy, Unknown, EDEMA, 02/04/22) Home Meds Reported Medications Losartan Potassium (Losartan Potassium) 25 Mg Tablet, 25 MG PO DAILY, TAB 02/10/22 Metoprolol Succinate (Metoprolol Succinate) 100 Mg Tab.er.24h, 100 MG PO BID, TAB 02/10/22 Atorvastatin Calcium (Atorvastatin Calcium) 40 Mg Tablet, 40 MG PO HS, TAB 02/10/22 Amitriptyline HCl (Amitriptyline HCl) 25 Mg Tablet, 25 MG PO HS, TAB 02/10/22 Ibuprofen (Ibuprofen) 200 Mg Capsule, 400-600 MG PO TID PRN for PAIN-MILD (1-4), CAP 02/10/22 Liraglutide (Victoza 3-Segundo) 0.6 Mg/0.1 Ml (18 Mg/3 Ml) Pen.injctr, 1.8 MG SQ 1200, EA 02/04/22 Albuterol Sulfate (PROAIR HFA) 1 Puff Puff, 2 PUFF IH Q4H PRN for SHORTNESS OF BREATH, EA 02/04/22 Insulin Glargine,Hum.rec.anlog (Lantus Solostar) 100 Unit/Ml (3 Ml) Insuln.pen, 15 UNIT SQ 1800, EA 02/04/22 Insulin Glargine,Hum.rec.anlog (Lantus Solostar) 100 Unit/Ml (3 Ml) Insuln.pen, 25 UNIT SQ DAILY, EA 02/04/22 Dapagliflozin Propanediol (Farxiga) 10 Mg Tablet, 10 MG PO DAILY, TAB 02/04/22 Cyclobenzaprine HCl (Cyclobenzaprine HCl) 10 Mg Tablet, 10 MG PO BID, TAB 02/04/22 Albuterol Sulfate (Albuterol Sulfate) 2.5 Mg/3 Ml (0.083 %) Vial.neb, 3 ML INH Q6H PRN for SHORTNESS OF BREATH, EA 02/04/22 Omeprazole (Omeprazole) 20 Mg Tab.rap.dr, 20 MG PO DAILY, EA 05/21/21 Fluticasone/Umeclidin/Vilanter (Trelegy Ellipta 100-62.5-25) 1 Each Blst.w.dev, 1 EACH IH DAILY 05/21/21 Gabapentin (Gabapentin) 600 Mg Tablet, 600 MG PO TID, TAB 05/21/21 Citalopram Hydrobromide (Citalopram HBr) 20 Mg Tablet, 20 MG PO DAILY, TAB 03/12/20 Discontinued Reported Medications Ibuprofen (Ibuprofen) 600 Mg Tablet, 600 MG PO Q6H PRN for PAIN-MILD, TAB 02/04/22 Hydrocodone/Acetaminophen (Hydrocodone-Acetamin 5-325 mg) 5 Mg-325 Mg Tablet, 1 TAB PO Q4H PRN for PAIN-MODERATE (5-7), TAB 02/04/22 Buspirone HCl (Buspirone HCl) 10 Mg Tablet, 10 MG PO, TAB 05/21/21 Discontinued Scripts Atorvastatin Calcium (Atorvastatin Calcium) 40 Mg Tablet, 40 MG PO HS, #90 TAB 0 Refills LAST FILLED 10-14-2019 #90 Prov:DOROTEO HORAN MD 03/14/20 Metoprolol Succinate (Metoprolol Succinate) 100 Mg Tab.er.24h, 100 MG PO BID, #60 TAB 0 Refills Prov:DOROTEO HORAN MD 03/14/20 Insulin Glargine,Hum.rec.anlog (Lantus) 100 Unit/1 Ml Vial, 25 UNIT SQ HS, #10 VIAL 0 Refills Prov:DOROTEO HORAN MD 03/14/20 Amitriptyline HCl (Amitriptyline HCl) 25 Mg Tablet, 25 MG PO HS, #30 TAB 0 Refills LAST FILLED 10-14-2019 #90 Prov:DOROTEO HORAN MD 03/14/20 Objective Exam Right Hip: Dressing C/D/I, +DF of ankle, no s/s of DVT Vital Signs Vital Signs Date Time Temp Pulse Resp B/P (MAP) Pulse Ox O2 Delivery O2 Flow Rate FiO2 02/11/22 08:00 92 Nasal Cannula 2.00 02/11/22 07:58 36.5 96 18 125/75 (92) 92 Nasal Cannula 2.00 02/11/22 07:30 93 Nasal Cannula 2.00 02/11/22 04:06 36.3 101 18 132/83 (99) 92 Nasal Cannula 2.00 02/10/22 23:12 36.4 113 20 113/80 (91) 92 Nasal Cannula 2.00 02/10/22 20:00 36.2 111 20 164/82 (109) 92 Nasal Cannula 2.00 02/10/22 19:50 92 Nasal Cannula 2.00 02/10/22 15:16 36.3 98 20 145/88 (107) 94 Nasal Cannula 2.00 02/10/22 12:22 36.2 97 22 129/87 (101) 93 Nasal Cannula 2.00 I & O 02/11/22 07:00 Intake Total 2365 ml Output Total 650 ml Balance 1715 ml Lab Results Laboratory Tests 02/10/22 19:39: Glucometer 296H 02/11/22 05:15: Hemoglobin 11.5, Hematocrit 37 02/11/22 05:58: Glucometer 242H Assessment and Plan Assessment Right Hip Primary Osteoarthritis s/p R SALTY Problem List Right Hip Primary Osteoarthritis s/p R SALTY Plan PT/OT DVT Prophylaxis Inpatient rehab tomorrow if authorized Final Diagonsis Right Hip Primary Osteoarthritis s/p R SALTY Level of the visit: Level 3 (postop global) RUDY CHOW MD Feb 11, 2022 10:55
[2022-02-11] MEDS ORDERED: guaiFENesin SYRUP 100 MG/5 ML 10 ML (ROBITUSSIN SF) PO PRN (11:00)
--- NOTE | 2022-02-11 11:49 | Occupational Ther Daily Note ---
OT Current Status-Daily Note Subjective Pt alert, lying in bed. Pt very pleasant, agrees to work with DAVIS. No c/o pain. Mental Status/Objective Patient Orientation: Person, Place, Time, Situation Attachments: IV ADL-Treatment Therapy Code Descriptions/Definitions Functional [place] Measure: 0=Not Assessed/NA 4=Minimal Assistance 1=Total Assistance 5=Supervision or Setup 2=Maximal Assistance 6=Modified [place] 3=Moderate Assistance 7=Complete IndependenceSCALE: Activities may be completed with or without assistive devices. 7-Lglgmoyind-pfyoacg completes the activity by him/herself with no assistance from a helper. 5-Set-up or Clean-up Assistance-helper sets up or cleans up; patient completes activity. [place] assists only prior to or following the activity. 4-Supervision or Touching Assistance-helper provides verbal cues and/or touching/steadying and/or contact guard assistance as patient completes activity. Assistance may be provided throughout the activity or intermittently. 3-Partial/Moderate Assistance-helper does LESS THAN HALF the effort. [place] lifts, holds or supports trunk or limbs, but provides less than half the effort. 2-Substantial/Maximal Assistance-helper does MORE THAN HALF the effort. [place] lifts or holds trunk or limbs and provides more than half the effort. 0-Cffoqgtci-zhrohx does ALL the effort. Patient does none of the effort to complete the activity. Or, the assistance of 2 or more helpers is required for the patient to complete the activity. If activity was not attempted, code reason: 7-Patient Refused. 9-Not Applicable-not attempted and the patient did not perform the activity before the current illness, exacerbation or injury. 10-Not Attempted due to Environmental Limitations-(lack of equipment, weather restraints, etc.). 88-Not Attempted due to Medical Conditions or Safety Concerns. Other Treatment Pt declined to complete any OOB tasks. Does agree to B UE strengthening exercises. Skilled instruction for correct technique when complete medium resistance theraband exercises. Pt complete 5 exercises 1 set 15 reps with good technique. Pt c/o fatigue after 5th exercise. Theraband left in room for pt to use. After therapy, pt lying in bed with call light/phone in reach. All needs met in room. OT Fire Control Technician Goals Fire Control Technician Goals Time Frame: Feb 27, 2022 Eating (QC): 6 Oral Hygiene (QC): 6 Toileting Hygiene (QC): 6 Shower/Bathe Self (QC): 4 Upper Body Dressing (QC): 5 Lower Body Dressing (QC): 4 On/Off Footwear (QC): 4 Additional Goals: 1-Demonstrate ADL Tasks, 2-Verbalize Understanding, 3- ImproveStrength/Agustin 1=Demonstrate adherence to instructed precautions during ADL tasks. 2=Patient will verbalize/demonstrate understanding of assistive devices/juan a fications for ADL. 3=Patient will improve strength/tolerance for activity to enable patient to perform ADL's. OT Education/Plan Problem List/Assessment Assessment: Decreased Activ Tolerance, Decreased UE Strength, Impaired Self- Care Skills Pt would benefit from skilled OT services in order to increase safety and independence with ADLs/functional mobility, and for education on AE for LE dressing in order to maximize LOF for safe return home with her sister. Discharge Recommendations Plan/Recommendations: Continue POC Treatment Plan/Plan of Care Patient would benefit from OT for education, treatment and training to promote independence in ADL's, mobility, safety and/or upper extremity function for ADL's. Plan of Care: ADL Retraining, Functional Mobility, UE Funct Exercise/Act Treatment Duration: Feb 27, 2022 Frequency: 3 times per week (3-5 times per week) Estimated Hrs Per Day: .25 hour per day Agreement: Yes Rehab Potential: Fair Time/GCodes Start Time: 11:18 Stop Time: 11:33 Total Time Billed (hr/min): 15 Billed Treatment Time 1 visit-EX 1 (15 min) ETHEL GRANDA Feb 11, 2022 11:49
[2022-02-11] MEDS: VICTOZA 18 MG/3 ML SQ SCH (12:01)
[2022-02-11 12:36] VITALS: BP 113/73
--- NOTE | 2022-02-11 15:11 | Physical Therapy Progress Note ---
Therapy Progress Note Attempted to wake patient up two different times for physical therapy this afternoon. Patient didn't appear to be in any distress but just would not wake up even with shaking her arm and leg. Nurse notified. Will try back in the morning. ANTOINETTE KUO PT Feb 11, 2022 15:11
--- NOTE | 2022-02-11 15:33 | Physical Therapy Progress Note ---
Therapy Progress Note EARRING MAKER checked on pt and was able to wake pt up but pt declined getting out of bed or completing EX. PT will check on pt tomorrow. YRN PINZON EARRING MAKER Feb 11, 2022 15:33
[2022-02-11 15:38] VITALS: BP 136/80
[2022-02-11 18:25] LABS: POTASSIUM 4.5 MMOL/L (3.6-5.0)
[2022-02-11 18:26] LABS: CALCIUM 9.1 MG/DL (8.5-10.1)
[2022-02-11 18:31] LABS: CREATININE SERUM 1.04 MG/DL (0.60-1.30)
[2022-02-11 19:31] VITALS: BP 136/81
[2022-02-11] MEDS: inSUlin ASPART (NovoLOG) 1 UNIT/0.01 ML (CHARGE PER UNIT) SC SCH (21:17)
[2022-02-11] MEDS: AMITRIPTYLINE 25 MG (ELAVIL) TAB PO SCH (21:18)
[2022-02-11 23:10] VITALS: BP 124/76
[2022-02-12 03:15] VITALS: BP 132/80
[2022-02-12 03:25] VITALS: BP 137/83
[2022-02-12] MEDS: inSUlin ASPART (NovoLOG) 1 UNIT/0.01 ML (CHARGE PER UNIT) SC SCH ×4 (05:18→22:40)
[2022-02-12] MEDS: MULTIVIT W/MINERALS TAB (THERAGRAN M) PO SCH (05:44)
[2022-02-12 08:16] VITALS: BP 112/73
[2022-02-12] MEDS: TRELEGY IH SCH (08:20)
[2022-02-12] MEDS: CYCLOBENZAPRINE 10 MG (FLEXERIL) TAB PO SCH ×2 (08:22→20:42)
[2022-02-12] MEDS: DOCUSATE SODIUM 100 MG (COLACE) CAP PO SCH ×2 (08:22→20:39)
[2022-02-12] MEDS: ASPIRIN E.C. 81 MG (ECOTRIN) TAB PO SCH ×2 (08:22→17:42)
[2022-02-12] MEDS: GABAPENTIN 600 MG (NEURONTIN) TAB PO SCH ×3 (08:22→20:41)
[2022-02-12] MEDS: meTOprolol SUCCINATE 100 MG (TOPROL XL) TAB PO SCH ×2 (08:22→20:40)
[2022-02-12] MEDS: PANTOPRAZOLE 20 MG TABLET (PROTONIX) PO SCH (08:22)
[2022-02-12] MEDS ORDERED: LOSARTAN 25 MG (COZAAR) TAB PO SCH (09:00)
--- NOTE | 2022-02-12 10:23 | Physical Therapy Daily Note ---
PT Daily Note-Current Subjective Patient agrees to PT. Pain Numeric Pain Scale: 5-Moderate Pain Location: Right Location Body Site: Hip Pain Description: Acute Mental Status Patient Orientation: Normal For Age Attachments: Oxygen Transfers SCALE: Activities may be completed with or without assistive devices. 4-Xizruyhqbe-dfsjfzn completes the activity by him/herself with no assistance from a helper. 5-Set-up or Clean-up Assistance-helper sets up or cleans up; patient completes activity. [place] assists only prior to or following the activity. 4-Supervision or Touching Assistance-helper provides verbal cues and/or touching/steadying and/or contact guard assistance as patient completes activity. Assistance may be provided throughout the activity or intermittently. 3-Partial/Moderate Assistance-helper does LESS THAN HALF the effort. [place] lifts, holds or supports trunk or limbs, but provides less than half the effort. 2-Substantial/Maximal Assistance-helper does MORE THAN HALF the effort. [place] lifts or holds trunk or limbs and provides more than half the effort. 1-Wjximzmxb-klchkl does ALL the effort. Patient does none of the effort to complete the activity. Or, the assistance of 2 or more helpers is required for the patient to complete the activity. If activity was not attempted, code reason: 7-Patient Refused. 9-Not Applicable-not attempted and the patient did not perform the activity before the current illness, exacerbation or injury. 10-Not Attempted due to Environmental Limitations-(lack of equipment, weather restraints, etc.). 88-Not Attempted due to Medical Conditions or Safety Concerns. Sit to Stand (QC): 4 Weight Bearing Right Lower Extremity: Right Weight Bearing/Tolerated Left Lower Extremity: Left Full Weight Bearing Gait Training Distance: 75' x 2 Walk 10 feet (QC): 4 Walk 50 ft with 2 Turns(QC): 4 Gait Assistive Device: FWW slow, antalgic gait sequence Exercises Supine Ex: Ankle pumps, Quad Set Supine Reps: 15 (in recliner with bilateral LE elevated) Seated Therapy Exercises: Ankle pumps, Long arc quads Seated Reps: 15 Assessment Patient requires 1 seated recovery period due to fatigue. Patient remains up in recliner with needs met. Increase activity as tolerated by patient. 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 Time Frame: Feb 21, 2022 Roll Left & Right (QC): 6 Sit to Lying (QC): 6 Lying-Sitting on Side/Bed(QC): 6 Sit to Stand (QC): 6 Chair/Kyh-ov-Mezba Xfer(QC): 6 Toilet Transfer (QC): 6 Walk 10 feet (QC): 5 Walk 50ft with 2 Turns (QC): 5 Walk 150 ft (QC): 5 1 Step (curb) (QC): 4 4 Steps (QC): 4 PT Plan Treatment/Plan Treatment Plan: Continue Plan of Care Treatment Plan: Bed Mobility, Education, Functional Activity Agustin, Functional Strength, Gait, Safety, Therapeutic Exercise, Transfers Treatment Duration: Feb 21, 2022 Frequency: 11 times per week Estimated Hrs Per Day: .5 hour per day Patient and/or Family Agrees t: Yes Time/GCodes Time In: 826 Time Out: 849 Total Billed Treatment Time: 23 Total Billed Treatment 1 visit EX 9 min GT 14 min REDD MENDOZA PT Feb 12, 2022 10:23
--- NOTE | 2022-02-12 10:46 | Occupational Ther Daily Note ---
OT Current Status-Daily Note Subjective Pt up in recliner with breakfast. Pt agrees to therapy. Pt c/o R hip pain during session and asked nrsg for pain meds. Mental Status/Objective Patient Orientation: Person, Place, Time, Situation Attachments: IV ADL-Treatment Therapy Code Descriptions/Definitions Functional [place] Measure: 0=Not Assessed/NA 4=Minimal Assistance 1=Total Assistance 5=Supervision or Setup 2=Maximal Assistance 6=Modified [place] 3=Moderate Assistance 7=Complete IndependenceSCALE: Activities may be completed with or without assistive devices. 1-Fdmzlobtmd-ghhqunx completes the activity by him/herself with no assistance from a helper. 5-Set-up or Clean-up Assistance-helper sets up or cleans up; patient completes activity. [place] assists only prior to or following the activity. 4-Supervision or Touching Assistance-helper provides verbal cues and/or touching/steadying and/or contact guard assistance as patient completes activity. Assistance may be provided throughout the activity or intermittently. 3-Partial/Moderate Assistance-helper does LESS THAN HALF the effort. [place] lifts, holds or supports trunk or limbs, but provides less than half the effort. 2-Substantial/Maximal Assistance-helper does MORE THAN HALF the effort. [place] lifts or holds trunk or limbs and provides more than half the effort. 0-Rgaacopes-txgcdc does ALL the effort. Patient does none of the effort to complete the activity. Or, the assistance of 2 or more helpers is required for the patient to complete the activity. If activity was not attempted, code reason: 7-Patient Refused. 9-Not Applicable-not attempted and the patient did not perform the activity before the current illness, exacerbation or injury. 10-Not Attempted due to Environmental Limitations-(lack of equipment, weather restraints, etc.). 88-Not Attempted due to Medical Conditions or Safety Concerns. Eating (QC): 6 Other Treatment Pt educated on lower body dressing equipment due to hip precautions. Pt verbalized understanding of each piece of equipment though declined to attempt at this time due to eating breakfast. Equipment left in room for pt to use while in hospital and educated that equipment will return to OT department when pt discharges. DAVIS discussed places to acquire equipment if pt wanted. After therapy, pt sitting in recliner with call light/phone in reach. All needs met in room. OT Fdc Goals Fdc Goals Time Frame: Feb 27, 2022 Eating (QC): 6 Oral Hygiene (QC): 6 Toileting Hygiene (QC): 6 Shower/Bathe Self (QC): 4 Upper Body Dressing (QC): 5 Lower Body Dressing (QC): 4 On/Off Footwear (QC): 4 Additional Goals: 1-Demonstrate ADL Tasks, 2-Verbalize Understanding, 3-ImproveStrength/Agustin 1=Demonstrate adherence to instructed precautions during ADL tasks. 2=Patient will verbalize/demonstrate understanding of assistive devices/modifications for ADL. 3=Patient will improve strength/tolerance for activity to enable patient to perform ADL's. OT Education/Plan Problem List/Assessment Assessment: Decreased Activ Tolerance, Impaired Self-Care Skills Pt would benefit from skilled OT services in order to increase safety and independence with ADLs/functional mobility, and for education on AE for LE dressing in order to maximize LOF for safe return home with her sister. Discharge Recommendations Plan/Recommendations: Continue POC Treatment Plan/Plan of Care Patient would benefit from OT for education, treatment and training to promote independence in ADL's, mobility, safety and/or upper extremity function for ADL's. Plan of Care: ADL Retraining, Functional Mobility, UE Funct Exercise/Act Treatment Duration: Feb 27, 2022 Frequency: 3 times per week (3-5 times per week) Estimated Hrs Per Day: .25 hour per day Agreement: Yes Rehab Potential: Fair Time/GCodes Start Time: 07:47 Stop Time: 08:10 Total Time Billed (hr/min): 23 Billed Treatment Time 1 visit-FA 2 (23 min) ETHEL GRANDA Feb 12, 2022 10:46
[2022-02-12] MEDS: NS IV 1000 ML 1,000 ML IV SCH ×3 (10:50→17:40)
[2022-02-12] MEDS: VICTOZA 18 MG/3 ML SQ SCH (11:29)
[2022-02-12 11:38] VITALS: BP 113/67
[2022-02-12] MEDS ORDERED: [UNRECOGNIZED DRUG - REMARK] PO SCH (13:15)
--- NOTE | 2022-02-12 13:24 | Progress Note - Ortho ---
Progress Note Subjective Date of Exam 02/12/22 Chief Complaint POD #3 R SALTY HPI/Events since last exam has made some progress with mobility, pain has improved Review of Systems - Allergies: Coded Allergies: Sulfa (Sulfonamide Antibiotics) (Verified Allergy, Unknown, 02/04/22) latex (Verified Allergy, Unknown, RASH, 02/04/22) lisinopril (Verified Allergy, Unknown, EDEMA, 02/04/22) metformin (Verified Allergy, Unknown, EDEMA, 02/04/22) Home Meds Reported Medications Losartan Potassium (Losartan Potassium) 25 Mg Tablet, 25 MG PO DAILY, TAB 02/10/22 Metoprolol Succinate (Metoprolol Succinate) 100 Mg Tab.er.24h, 100 MG PO BID, TAB 02/10/22 Atorvastatin Calcium (Atorvastatin Calcium) 40 Mg Tablet, 40 MG PO HS, TAB 02/10/22 Amitriptyline HCl (Amitriptyline HCl) 25 Mg Tablet, 25 MG PO HS, TAB 02/10/22 Ibuprofen (Ibuprofen) 200 Mg Capsule, 400-600 MG PO TID PRN for PAIN-MILD (1-4), CAP 02/10/22 Liraglutide (Victoza 3-Segundo) 0.6 Mg/0.1 Ml (18 Mg/3 Ml) Pen.injctr, 1.8 MG SQ 1200, EA 02/04/22 Albuterol Sulfate (PROAIR HFA) 1 Puff Puff, 2 PUFF IH Q4H PRN for SHORTNESS OF BREATH, EA 02/04/22 Insulin Glargine,Hum.rec.anlog (Lantus Solostar) 100 Unit/Ml (3 Ml) Insuln.pen, 15 UNIT SQ 1800, EA 02/04/22 Insulin Glargine,Hum.rec.anlog (Lantus Solostar) 100 Unit/Ml (3 Ml) Insuln.pen, 25 UNIT SQ DAILY, EA 02/04/22 Dapagliflozin Propanediol (Farxiga) 10 Mg Tablet, 10 MG PO DAILY, TAB 02/04/22 Cyclobenzaprine HCl (Cyclobenzaprine HCl) 10 Mg Tablet, 10 MG PO BID, TAB 02/04/22 Albuterol Sulfate (Albuterol Sulfate) 2.5 Mg/3 Ml (0.083 %) Vial.neb, 3 ML INH Q6H PRN for SHORTNESS OF BREATH, EA 02/04/22 Omeprazole (Omeprazole) 20 Mg Tab.rap.dr, 20 MG PO DAILY, EA 05/21/21 Fluticasone/Umeclidin/Vilanter (Trelegy Ellipta 100-62.5-25) 1 Each Blst.w.dev, 1 EACH IH DAILY 05/21/21 Gabapentin (Gabapentin) 600 Mg Tablet, 600 MG PO TID, TAB 05/21/21 Citalopram Hydrobromide (Citalopram HBr) 20 Mg Tablet, 20 MG PO DAILY, TAB 03/12/20 Discontinued Reported Medications Ibuprofen (Ibuprofen) 600 Mg Tablet, 600 MG PO Q6H PRN for PAIN-MILD, TAB 02/04/22 Hydrocodone/Acetaminophen (Hydrocodone-Acetamin 5-325 mg) 5 Mg-325 Mg Tablet, 1 TAB PO Q4H PRN for PAIN-MODERATE (5-7), TAB 02/04/22 Buspirone HCl (Buspirone HCl) 10 Mg Tablet, 10 MG PO, TAB 05/21/21 Discontinued Scripts Atorvastatin Calcium (Atorvastatin Calcium) 40 Mg Tablet, 40 MG PO HS, #90 TAB 0 Refills LAST FILLED 10-14-2019 #90 Prov:DOROTEO HORAN MD 03/14/20 Metoprolol Succinate (Metoprolol Succinate) 100 Mg Tab.er.24h, 100 MG PO BID, #60 TAB 0 Refills Prov:DOROTEO HORAN MD 03/14/20 Insulin Glargine,Hum.rec.anlog (Lantus) 100 Unit/1 Ml Vial, 25 UNIT SQ HS, #10 VIAL 0 Refills Prov:DOROTEO HORAN MD 03/14/20 Amitriptyline HCl (Amitriptyline HCl) 25 Mg Tablet, 25 MG PO HS, #30 TAB 0 Refills LAST FILLED 10-14-2019 #90 Prov:DOROTEO HORAN MD 03/14/20 Objective Exam R Hip: Dressing C/D/I, +DF of ankle, no s/s of DVT Vital Signs Vital Signs Date Time Temp Pulse Resp B/P (MAP) Pulse Ox O2 Delivery O2 Flow Rate FiO2 02/12/22 11:38 36.1 96 24 113/67 (82) 97 Nasal Cannula 2.00 02/12/22 08:20 92 Nasal Cannula 2.00 02/12/22 08:16 36.3 105 20 112/73 (86) 93 Nasal Cannula 2.00 02/12/22 08:00 93 Nasal Cannula 2.00 02/12/22 03:15 36.4 106 14 132/80 (97) 90 Nasal Cannula 2.00 02/11/22 23:10 37.0 110 20 124/76 (92) 90 Nasal Cannula 2.00 02/11/22 20:30 93 Nasal Cannula 2.00 02/11/22 19:31 37.1 111 22 136/81 (99) 90 Nasal Cannula 2.00 02/11/22 15:38 36.5 98 22 136/80 (98) 98 Nasal Cannula 2.00 I & O 02/12/22 06:59 Intake Total 1990 ml Output Total 1750 ml Balance 240 ml Lab Results Laboratory Tests 02/11/22 15:43: Glucometer 193H 02/11/22 17:00: Sodium Level 139, Potassium Level 4.5, Chloride Level 104, Carbon Dioxide Level 25, Anion Gap 10, Blood Urea Nitrogen 15, Creatinine 1.04, Estimat Glomerular Filtration Rate 58, BUN/Creatinine Ratio 14, Glucose Level 190H, Calcium Level 9.1 02/12/22 05:16: Glucometer 175H 02/12/22 07:37: Glucometer 236H 02/12/22 11:26: Glucometer 198H Assessment and Plan Assessment Right Hip Primary OA s/p R SALTY Problem List Right Hip Primary OA s/p R SALTY Plan PT/OT DVT Prophylaxis Ready for IRF versus Home with Home Health; awaiting determination Final Diagonsis Right Hip Primary OA s/p R SALTY Level of the visit: Level 3 (postop global) RUDY CHOW MD Feb 12, 2022 13:24
--- NOTE | 2022-02-12 14:03 | Physical Therapy Daily Note ---
PT Daily Note-Current Subjective Patient agrees to PT. Pain Numeric Pain Scale: 7 Location: Right Location Body Site: Hip Pain Description: Acute Mental Status Patient Orientation: Normal For Age Attachments: Oxygen, IV Transfers SCALE: Activities may be completed with or without assistive devices. 7-Uyxdgpazyt-jsppoze completes the activity by him/herself with no assistance from a helper. 5-Set-up or Clean-up Assistance-helper sets up or cleans up; patient completes activity. [place] assists only prior to or following the activity. 4-Supervision or Touching Assistance-helper provides verbal cues and/or touching/steadying and/or contact guard assistance as patient completes activity. Assistance may be provided throughout the activity or intermittently. 3-Partial/Moderate Assistance-helper does LESS THAN HALF the effort. [place] lifts, holds or supports trunk or limbs, but provides less than half the effort. 2-Substantial/Maximal Assistance-helper does MORE THAN HALF the effort. [place] lifts or holds trunk or limbs and provides more than half the effort. 0-Sfoasfjql-rdzize does ALL the effort. Patient does none of the effort to complete the activity. Or, the assistance of 2 or more helpers is required for the patient to complete the activity. If activity was not attempted, code reason: 7-Patient Refused. 9-Not Applicable-not attempted and the patient did not perform the activity before the current illness, exacerbation or injury. 10-Not Attempted due to Environmental Limitations-(lack of equipment, weather restraints, etc.). 88-Not Attempted due to Medical Conditions or Safety Concerns. Sit to Lying (QC): 3 Sit to Stand (QC): 4 Weight Bearing Right Lower Extremity: Right Weight Bearing/Tolerated Left Lower Extremity: Left Full Weight Bearing Gait Training Distance: 60' Walk 10 feet (QC): 4 Walk 50 ft with 2 Turns(QC): 4 Walk 150 ft (QC): 88 Gait Assistive Device: FWW VC's for body placement in FWW Exercises Supine Ex: Ankle pumps, Quad Set, Heel Slides Supine Reps: 12 Seated Therapy Exercises: Long arc quads Seated Reps: 15 Assessment Patient ceases session due to fatigue. PT educated patient on importance of increasing her activity to be able to progress with gross motor skills. Patient returned to bed with abduction pillow in place. PT [facility] Goals Quantitative Consultant Goals PT [facility] Goals Time Frame: Feb 21, 2022 Roll Left & Right (QC): 6 Sit to Lying (QC): 6 Lying-Sitting on Side/Bed(QC): 6 Sit to Stand (QC): 6 Chair/Jkp-vy-Hldld Xfer(QC): 6 Toilet Transfer (QC): 6 Walk 10 feet (QC): 5 Walk 50ft with 2 Turns (QC): 5 Walk 150 ft (QC): 5 1 Step (curb) (QC): 4 4 Steps (QC): 4 PT Plan Treatment/Plan Treatment Plan: Continue Plan of Care Treatment Plan: Bed Mobility, Education, Functional Activity Agustin, Functional Strength, Gait, Safety, Therapeutic Exercise, Transfers Treatment Duration: Feb 21, 2022 Frequency: 11 times per week Estimated Hrs Per Day: .5 hour per day Patient and/or Family Agrees t: Yes Time/GCodes Time In: 1320 Time Out: 1343 Total Billed Treatment Time: 23 Total Billed Treatment 1 visit EX 9 min GT 14 min REDD MENDOZA PT Feb 12, 2022 14:03
[2022-02-12 15:48] VITALS: BP 127/67
--- NOTE | 2022-02-12 16:41 | Consultation - Hospitalist ---
HPI History of Present Illness: HPI/Chief Complaint Caren Patten is a 71 year old female with PMH HTN, HLD, T2DM, GERD, COPD, morbid obesity, who was admitted for right total hip arthroplasty due to right hip primary osteoarthritis. The hospitalist service was consulted for medical co- management. She was altered yesterday and she says this was due to sleepiness. She hadn't been sleeping very well prior to that. She has no lethargy or confusion today. She did not work much with therapy yesterday because she was too tired. Today she has already been up and walked in the halls with them. She is motivated to gain strength. She is at her normal state of health. She has been eating and drinking. She denies fever, chills, chest pain, shortness of breath, cough, abdominal pain, nausea, vomiting, diarrhea, and dysuria. Source: patient Exam Limitations: no limitations Date Seen 02/12/22 Attending Physician [place] PCP Admitting Physician: Luigi Crabtree MD Attending Physician: Luigi Crabtree MD Referring Physician Date of Admission Feb 09, 2022 at 06:37 Home Medications & Allergies Home Medications Reviewed patient Home Medication Reconciliation performed by pharmacy medication reconciliations remanufacturing technician and/or nursing. Patients Allergies have been reviewed. Allergies Allergies Coded Allergies Sulfa (Sulfonamide Antibiotics) (Verified Allergy, Unknown, 02/04/22) latex (Verified Allergy, Unknown, RASH, 02/04/22) lisinopril (Verified Allergy, Unknown, EDEMA, 02/04/22) metformin (Verified Allergy, Unknown, EDEMA, 02/04/22) Past Gptdnsm-Mhfvhp-Fbnlrh Hx Patient Social History Tobacco Use?: No Smoking Status: Former Smoker Use of E-Cig and/or Vaping dev: No Substance use?: No Alcohol Use?: No Pt feels they are or have been: No Immunizations Up To Date Date of Influenza Vaccine: May 22, 2018 First/Initial COVID19 Vaccinat: 09/2020 Second COVID19 Vaccination Dashawn: 10/2020 Tetanus Booster (TDap): Unknown Hepatitis A: Yes Hepatitis B: Yes PED Vaccines UTD: No Date of Pneumonia Vaccine: Feb 25, 2017 Seasonal Allergies Seasonal Allergies: No Current Status Advance Directives: No Communicates: Verbally Primary Language: Ecuadorean Past Medical History Surgeries: Cardiac, Section, Eye Surgery, Gallbladder, Hysterectomy, Oophorectomy, Orthopedic, Renal Pneumonia, COPD Currently Using CPAP: Yes Currently Using BIPAP: No Chronic Edema/Swelling, Coronary Artery Disease, High Cholesterol, Hypertension 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 Sexually Transmitted Disease: Yes (TRICHOMONAS) HIV/AIDS: No Kidney Infection, Bladder Infection, Kidney Stones, Renal Failure Gastroesophageal Reflux, Pancreatitis, Ulcer Arthritis, Back Injury, Chronic Back Pain, Fractures Diabetes, Insulin dep Cataract Loss of Vision: Left Eating Disorder, Sleep Difficulties, Anxiety, Depression Blood Disorders: No Adverse Reaction/Blood Tranf: No PMHx: COPD DMII HTN SurgHx: Knee replacment bilaterally Cholecystectomy Hysterectomy C section Ankle surgery Eye surgery Family Medical History Alcoholism 09 SISTER 09 SISTER Cancer 03 MOTHER Cataract 09 SISTER Family history: Cardiovascular disease 09 BROTHER (HEART ATTACK) Family history: Diabetes mellitus 09 SISTER Family history: Glaucoma 09 SISTER 09 SISTER Family history: Hypertension 09 BROTHER 09 BROTHER 09 BROTHER Family history: Osteoporosis 09 SISTER 09 SISTER Kidney disease 09 SISTER Seizure disorder Stroke 09 BROTHER No Family History of: Abdominal aortic aneurysm Cancer of colon Chest pain Congenital heart disease Congestive heart failure Cystic fibrosis Dementia Dysphagia Family history: Allergy Family history: Alzheimer's disease Family history: Arthritis Family history: Breast disease Family history: Coronary thrombosis Family history: Gastrointestinal disease Headache Hearing loss Heart disease Hereditary disease History of - anemia History of - disorder History of - respiratory disease History of drug abuse Human immunodeficiency virus (HIV) seropositivity Hypercholesterolemia Infertile Malignant neoplasm of lung Myocardial infarction Parkinson's disease Prostate cancer Psychotic disorder Tuberculosis Visual impairment Heart Disease, Cancer, CVA, Diabetes Review of Systems Constitutional: no symptoms reported Respiratory: no symptoms reported Cardiovascular: no symptoms reported Gastrointestinal: no symptoms reported Physical Exam Physical Exam Vital Signs Vital Signs - First Documented 02/09/22 07:00 Temp 36.2 Pulse 86 Resp 18 B/P (MAP) 147/96 (113) Pulse Ox 94 O2 Delivery Room Air Capillary Refill : Height, Weight, BMI Height: 5'0.00" Weight: 220lbs. 0.3oz. 99.384431ke; 41.11 BMI Method:Stated General Appearance: No Apparent Distress, Obese HEENT: PERRL/EOMI, Pharynx Normal Neck: Normal Inspection, Supple Respiratory: Lungs Clear, Normal Breath Sounds, No Respiratory Distress Cardiovascular: Regular Rate, Rhythm, No Edema, No Murmur Gastrointestinal: Normal Bowel Sounds, Non Tender, Soft Extremity: Normal Inspection, No Pedal Edema Neurologic/Psychiatric: Alert, Normal Mood/Affect Skin: Normal Color, Warm/Dry Results Results/Procedures Labs Laboratory Tests 02/11/22 05:15 02/11/22 17:00 Patient resulted labs reviewed. Imaging: Reviewed Imaging Report Assessment/Plan Assessment and Plan Assess & Plan/Chief Complaint Right hip primary osteoarthritis s/p right total hip arthroplasty Dr. Crabtree, orthopedic surgery, primary Pain regimen Bowel regimen Add Incentive spirometry Add Lovenox PT/OT IRF evaluation HTN HLD T2DM GERD COPD Morbid obesity Continue home meds DVT prophylaxis: Lovenox Diagnosis/Problems Diagnosis/Problems (1) Status post right hip replacement Status: Acute (2) Primary osteoarthritis of right hip Status: Acute (3) HTN (hypertension) Status: Chronic (4) HLD (hyperlipidemia) Status: Chronic (5) T2DM (type 2 diabetes mellitus) Status: Chronic (6) GERD (gastroesophageal reflux disease) Status: Chronic (7) COPD (chronic obstructive pulmonary disease) Status: Chronic (8) Morbid obesity Status: Chronic CIERRA NEAL MD Feb 12, 2022 16:40
[2022-02-12] MEDS ORDERED: ENOXAPARIN 40 MG/0.4 ML (LOVENOX) SYR SQ SCH (16:45)
[2022-02-12] MEDS: ENOXAPARIN 40 MG/0.4 ML (LOVENOX) SYR SQ SCH (17:42)
[2022-02-12] MEDS ORDERED: FENTANYL PATCH REMOVAL TP ONE (18:30)
[2022-02-12 19:10] VITALS: BP 132/76
[2022-02-12] MEDS: AMITRIPTYLINE 25 MG (ELAVIL) TAB PO SCH (20:43)
[2022-02-13] VITALS (7 sets, daily range): BP systolic 121–138; BP diastolic 60–79
[2022-02-13] MEDS: inSUlin ASPART (NovoLOG) 1 UNIT/0.01 ML (CHARGE PER UNIT) SC SCH ×4 (04:54→21:01)
[2022-02-13] MEDS: ENOXAPARIN 40 MG/0.4 ML (LOVENOX) SYR SQ SCH ×2 (06:10→16:42)
[2022-02-13] MEDS: MULTIVIT W/MINERALS TAB (THERAGRAN M) PO SCH (06:10)
[2022-02-13] MEDS: TRELEGY IH SCH (08:40)
[2022-02-13] MEDS: GABAPENTIN 600 MG (NEURONTIN) TAB PO SCH ×3 (09:07→21:03)
[2022-02-13] MEDS: CYCLOBENZAPRINE 10 MG (FLEXERIL) TAB PO SCH ×2 (09:08→21:17)
[2022-02-13] MEDS: [UNRECOGNIZED DRUG - REMARK] PO SCH (09:09)
[2022-02-13] MEDS: [UNRECOGNIZED DRUG - REMARK] PO SCH (09:10)
[2022-02-13] MEDS: DOCUSATE SODIUM 100 MG (COLACE) CAP PO SCH ×2 (09:11→21:17)
[2022-02-13] MEDS: meTOprolol SUCCINATE 100 MG (TOPROL XL) TAB PO SCH ×2 (09:12→21:16)
[2022-02-13] MEDS: LOSARTAN 25 MG (COZAAR) TAB PO SCH (09:13)
[2022-02-13] MEDS: ASPIRIN E.C. 81 MG (ECOTRIN) TAB PO SCH ×2 (09:14→18:05)
--- NOTE | 2022-02-13 10:32 | Physical Therapy Daily Note ---
PT Daily Note-Current Subjective Patient sitting EOB pre tx, agrees to PT, just got through bathing, has 9/10 pain with activity. Appearance Patient in bed post tx with nurse call, phone, tray, all needs met, abduction pillow on. Mental Status Patient Orientation: Person, Place, Situation Transfers SCALE: Activities may be completed with or without assistive devices. 4-Evbzxrodgw-dvfoydq completes the activity by him/herself with no assistance from a helper. 5-Set-up or Clean-up Assistance-helper sets up or cleans up; patient completes activity. [place] assists only prior to or following the activity. 4-Supervision or Touching Assistance-helper provides verbal cues and/or touching/steadying and/or contact guard assistance as patient completes activity. Assistance may be provided throughout the activity or intermittently. 3-Partial/Moderate Assistance-helper does LESS THAN HALF the effort. [place] lifts, holds or supports trunk or limbs, but provides less than half the effort. 2-Substantial/Maximal Assistance-helper does MORE THAN HALF the effort. [place] lifts or holds trunk or limbs and provides more than half the effort. 4-Wnccohsjm-zxvidt does ALL the effort. Patient does none of the effort to complete the activity. Or, the assistance of 2 or more helpers is required for the patient to complete the activity. If activity was not attempted, code reason: 7-Patient Refused. 9-Not Applicable-not attempted and the patient did not perform the activity before the current illness, exacerbation or injury. 10-Not Attempted due to Environmental Limitations-(lack of equipment, weather restraints, etc.). 88-Not Attempted due to Medical Conditions or Safety Concerns. Roll Left & Right (QC): 3 Sit to Lying (QC): 3 Sit to Stand (QC): 4 Chair/Urq-ll-Unfag Xfer(QC): 4 Weight Bearing Right Lower Extremity: Right Weight Bearing/Tolerated Left Lower Extremity: Left Full Weight Bearing Gait Training Distance: 25', 50' Walk 10 feet (QC): 4 Walk 50 ft with 2 Turns(QC): 4 Gait Persons Needed: 1 Gait Assistive Device: FWW Patient stands from bed and ambulates into the hallway using RW about 25' and states she needs to sit because her right leg feels like it is going to "give out", a chair is placed behind her and she rests and then stands again with CGA and ambulates about another 50' and then sits in her recliner, performs a few LE exercise and then states she would like to get back to bed, sit to supine is min assist. Exercises Supine Ex: Quad Set, Glut sets Supine Reps: 15 (done in recliner with legs elevated) Seated Therapy Exercises: Ankle pumps, Long arc quads Seated Reps: 15 Treatments bed mobility and transfers, ambulation, LE strengthening Assessment Current Status: Fair Progress slowly improving functional mobility, needs significant assist for supine <-> sit, it is just min assist but a hard min assist PT Criminal Judge Goals Criminal Judge Goals PT Half-Way Goals Time Frame: Feb 21, 2022 Roll Left & Right (QC): 6 Sit to Lying (QC): 6 Lying-Sitting on Side/Bed(QC): 6 Sit to Stand (QC): 6 Chair/Pez-gp-Bmudg Xfer(QC): 6 Toilet Transfer (QC): 6 Walk 10 feet (QC): 5 Walk 50ft with 2 Turns (QC): 5 Walk 150 ft (QC): 5 1 Step (curb) (QC): 4 4 Steps (QC): 4 PT Plan Problem List Problem List: Activity Tolerance, Functional Strength, Safety, Balance, Gait, Transfer, Bed Mobility, ROM Treatment/Plan Treatment Plan: Continue Plan of Care Treatment Plan: Bed Mobility, Education, Functional Activity Agustin, Functional Strength, Gait, Safety, Therapeutic Exercise, Transfers Treatment Duration: Feb 21, 2022 Frequency: 11 times per week Estimated Hrs Per Day: .5 hour per day Patient and/or Family Agrees t: Yes Safety Risks/Education Patient Education: Gait Training, Transfer Techniques, Correct Positioning, Safety Issues Teaching Recipient: Patient Teaching Methods: Demonstration, Discussion Response to Teaching: Reinforcement Needed Time/GCodes Time In: 855 Time Out: 922 Total Billed Treatment Time: 27 Total Billed Treatment 1 visit FA 27' ANTOINETTE KUO PT Feb 13, 2022 10:32
--- NOTE | 2022-02-13 11:11 | Occupational Ther Daily Note ---
OT Current Status-Daily Note Subjective Pt laying in bed upon OT arrival. Pt agreeable to tx. Mental Status/Objective Patient Orientation: Person, Place, Situation ADL-Treatment Therapy Code Descriptions/Definitions Functional [place] Measure: 0=Not Assessed/NA 4=Minimal Assistance 1=Total Assistance 5=Supervision or Setup 2=Maximal Assistance 6=Modified [place] 3=Moderate Assistance 7=Complete IndependenceSCALE: Activities may be completed with or without assistive devices. 0-Vxvmocjkty-cikdmle completes the activity by him/herself with no assistance from a helper. 5-Set-up or Clean-up Assistance-helper sets up or cleans up; patient completes activity. [place] assists only prior to or following the activity. 4-Supervision or Touching Assistance-helper provides verbal cues and/or touching/steadying and/or contact guard assistance as patient completes activity. Assistance may be provided throughout the activity or intermittently. 3-Partial/Moderate Assistance-helper does LESS THAN HALF the effort. [place] lifts, holds or supports trunk or limbs, but provides less than half the effort. 2-Substantial/Maximal Assistance-helper does MORE THAN HALF the effort. [place] lifts or holds trunk or limbs and provides more than half the effort. 1-Obaocysge-xpgmfe does ALL the effort. Patient does none of the effort to complete the activity. Or, the assistance of 2 or more helpers is required for the patient to complete the activity. If activity was not attempted, code reason: 7-Patient Refused. 9-Not Applicable-not attempted and the patient did not perform the activity before the current illness, exacerbation or injury. 10-Not Attempted due to Environmental Limitations-(lack of equipment, weather restraints, etc.). 88-Not Attempted due to Medical Conditions or Safety Concerns. Lower Body Dressing (QC): 4 (CGA for standing balance when hiking pants. V/c's for sequencing with dressing stick) On/Off Footwear: 3 (Min A. Pt able to thread sock onto sock aide but required assistance hiking sock over ankle) Other Treatment Pt required Min A with R LE to maintain precautions to transfer supine to seated EOB. OT educated and demonstrated LBD and footwear with dressing stick and sock aide, pt returned demonstration while seated EOB. Sit to stand for pant hike not complete, as pt was already wearing LB clothing, but per clinical judgment, pt would require CGA for task. Per PT note from this AM, pt required CGA for sit to/from stand, and with ambulation using FWW. Pt politely declined any further ADLs. Pt required Min A with R LE to transfer seated EOB to supine. Post tx, pt left in bed with abduction pillow in place, call light in reach, and all needs met. Education OT Patient Education: Correct positioning, Energy conservation, Modified ADL techniques, Progress toward Goal/Update tx plan, Purpose of tx/functional activities, Reviewed precautions, Rehab process, Safety issues, Transfer techniques, Use of adapted equipment Teaching Recipient: Patient Teaching Methods: Demonstration, Discussion Response to Teaching: Verbalize Understanding, Return Demonstration, Reinforcement Needed OT Plug Machine Operator Goals Plug Machine Operator Goals Time Frame: Feb 27, 2022 Eating (QC): 6 Oral Hygiene (QC): 6 Toileting Hygiene (QC): 6 Shower/Bathe Self (QC): 4 Upper Body Dressing (QC): 5 Lower Body Dressing (QC): 4 On/Off Footwear (QC): 4 Additional Goals: 1-Demonstrate ADL Tasks, 2-Verbalize Understanding, 3- ImproveStrength/Agustin 1=Demonstrate adherence to instructed precautions during ADL tasks. 2=Patient will verbalize/demonstrate understanding of assistive devices/modifications for ADL. 3=Patient will improve strength/tolerance for activity to enable patient to perform ADL's. OT Education/Plan Problem List/Assessment Assessment: Decreased Activ Tolerance, Decreased UE Strength, Impaired Bed Mobility, Impaired Funct Balance, Impaired I ADL's, Impaired Self-Care Skills Pt would benefit from skilled OT services in order to increase safety and independence with ADLs/functional mobility, and for education on AE for LE dressing in order to maximize LOF for safe return home with her sister. Discharge Recommendations Plan/Recommendations: Continue POC Treatment Plan/Plan of Care Patient would benefit from OT for education, treatment and training to promote independence in ADL's, mobility, safety and/or upper extremity function for ADL's. Plan of Care: ADL Retraining, Functional Mobility, UE Funct Exercise/Act Treatment Duration: Feb 27, 2022 Frequency: 3 times per week (3-5 times per week) Estimated Hrs Per Day: .25 hour per day Agreement: Yes Rehab Potential: Fair Time/GCodes Start Time: 10:47 Stop Time: 11:01 Total Time Billed (hr/min): 14 Billed Treatment Time 1, ADL (14') CHAI FRIEDMAN OT Feb 13, 2022 11:11
[2022-02-13] MEDS: VICTOZA 18 MG/3 ML SQ SCH (12:40)
--- NOTE | 2022-02-13 13:53 | Physical Therapy Daily Note ---
PT Daily Note-Current Subjective Patient in bed pre tx, agrees to PT but doesn't want to get out of bed at this time, patient is tired and wants to take a nap. Patient agrees to exercises in bed, has no pain at rest. Appearance Patient in bed post tx with nurse call, phone, tray, all needs met. Mental Status Patient Orientation: Person, Place, Situation Transfers SCALE: Activities may be completed with or without assistive devices. 8-Hntpqgamoa-zgxrvfa completes the activity by him/herself with no assistance fr om a helper. 5-Set-up or Clean-up Assistance-helper sets up or cleans up; patient completes activity. [place] assists only prior to or following the activity. 4-Supervision or Touching Assistance-helper provides verbal cues and/or touching/steadying and/or contact guard assistance as patient completes activity. Assistance may be provided throughout the activity or intermittently. 3-Partial/Moderate Assistance-helper does LESS THAN HALF the effort. [place] lifts, holds or supports trunk or limbs, but provides less than half the effort. 2-Substantial/Maximal Assistance-helper does MORE THAN HALF the effort. [place] lifts or holds trunk or limbs and provides more than half the effort. 7-Biswtwlfb-etbyiu does ALL the effort. Patient does none of the effort to complete the activity. Or, the assistance of 2 or more helpers is required for the patient to complete the activity. If activity was not attempted, code reason: 7-Patient Refused. 9-Not Applicable-not attempted and the patient did not perform the activity before the current illness, exacerbation or injury. 10-Not Attempted due to Environmental Limitations-(lack of equipment, weather restraints, etc.). 88-Not Attempted due to Medical Conditions or Safety Concerns. Weight Bearing Right Lower Extremity: Right Weight Bearing/Tolerated Left Lower Extremity: Left Full Weight Bearing Exercises Supine Ex: Ankle pumps, Quad Set, Glut sets, Heel Slides (AAROM), Short Arc Quads (AAROM), Straight leg raise (AAROM), Hip abd/add (AAROM) Supine Reps: 20 (RLE, SALTY protocol) Treatments SALTY protocol Assessment Current Status: Fair Progress overall making slow progress, declined OOB activity this afternoon. PT [facility] Goals [facility] Goals PT Appraisal Coordinator Goals Time Frame: Feb 21, 2022 Roll Left & Right (QC): 6 Sit to Lying (QC): 6 Lying-Sitting on Side/Bed(QC): 6 Sit to Stand (QC): 6 Chair/[place]ajse Xfer(QC): 6 Toilet Transfer (QC): 6 Walk 10 feet (QC): 5 Walk 50ft with 2 Turns (QC): 5 Walk 150 ft (QC): 5 1 Step (curb) (QC): 4 4 Steps (QC): 4 PT Plan Problem List Problem List: Activity Tolerance, Functional Strength, Safety, Balance, Gait, Transfer, Bed Mobility, ROM Treatment/Plan Treatment Plan: Continue Plan of Care Treatment Plan: Bed Mobility, Education, Functional Activity Agustin, Functional Strength, Gait, Safety, Therapeutic Exercise, Transfers Treatment Duration: Feb 21, 2022 Frequency: 11 times per week Estimated Hrs Per Day: .5 hour per day Patient and/or Family Agrees t: Yes Safety Risks/Education Patient Education: Correct Positioning, Safety Issues Teaching Recipient: Patient Teaching Methods: Demonstration, Discussion Response to Teaching: Reinforcement Needed Time/GCodes Time In: 1340 Time Out: 1350 Total Billed Treatment Time: 10 Total Billed Treatment 1 visit EX ANTOINETTE SHEPPARD PT Feb 13, 2022 13:53
--- NOTE | 2022-02-13 16:20 | Progress Note - Ortho ---
Progress Note Subjective Date of Exam 02/13/22 Chief Complaint POD #4 R SALTY HPI/Events since last exam some continued issues with intermittent pain, not making adequate progress with therapy for discharge Review of Systems - Allergies: Coded Allergies: Sulfa (Sulfonamide Antibiotics) (Verified Allergy, Unknown, 02/04/22) latex (Verified Allergy, Unknown, RASH, 02/04/22) lisinopril (Verified Allergy, Unknown, EDEMA, 02/04/22) metformin (Verified Allergy, Unknown, EDEMA, 02/04/22) Home Meds Reported Medications Losartan Potassium (Losartan Potassium) 25 Mg Tablet, 25 MG PO DAILY, TAB 02/10/22 Metoprolol Succinate (Metoprolol Succinate) 100 Mg Tab.er.24h, 100 MG PO BID, TAB 02/10/22 Atorvastatin Calcium (Atorvastatin Calcium) 40 Mg Tablet, 40 MG PO HS, TAB 02/10/22 Amitriptyline HCl (Amitriptyline HCl) 25 Mg Tablet, 25 MG PO HS, TAB 02/10/22 Ibuprofen (Ibuprofen) 200 Mg Capsule, 400-600 MG PO TID PRN for PAIN-MILD (1-4), CAP 02/10/22 Liraglutide (Victoza 3-Segundo) 0.6 Mg/0.1 Ml (18 Mg/3 Ml) Pen.injctr, 1.8 MG SQ 1200, EA 02/04/22 Albuterol Sulfate (PROAIR HFA) 1 Puff Puff, 2 PUFF IH Q4H PRN for SHORTNESS OF BREATH, EA 02/04/22 Insulin Glargine,Hum.rec.anlog (Lantus Solostar) 100 Unit/Ml (3 Ml) Insuln.pen, 15 UNIT SQ 1800, EA 02/04/22 Insulin Glargine,Hum.rec.anlog (Lantus Solostar) 100 Unit/Ml (3 Ml) Insuln.pen, 25 UNIT SQ DAILY, EA 02/04/22 Dapagliflozin Propanediol (Farxiga) 10 Mg Tablet, 10 MG PO DAILY, TAB 02/04/22 Cyclobenzaprine HCl (Cyclobenzaprine HCl) 10 Mg Tablet, 10 MG PO BID, TAB 02/04/22 Albuterol Sulfate (Albuterol Sulfate) 2.5 Mg/3 Ml (0.083 %) Vial.neb, 3 ML INH Q6H PRN for SHORTNESS OF BREATH, EA 02/04/22 Omeprazole (Omeprazole) 20 Mg Tab.rap.dr, 20 MG PO DAILY, EA 05/21/21 Fluticasone/Umeclidin/Vilanter (Trelegy Ellipta 100-62.5-25) 1 Each Blst.w.dev, 1 EACH IH DAILY 05/21/21 Gabapentin (Gabapentin) 600 Mg Tablet, 600 MG PO TID, TAB 05/21/21 Citalopram Hydrobromide (Citalopram HBr) 20 Mg Tablet, 20 MG PO DAILY, TAB 03/12/20 Discontinued Reported Medications Ibuprofen (Ibuprofen) 600 Mg Tablet, 600 MG PO Q6H PRN for PAIN-MILD, TAB 02/04/22 Hydrocodone/Acetaminophen (Hydrocodone-Acetamin 5-325 mg) 5 Mg-325 Mg Tablet, 1 TAB PO Q4H PRN for PAIN-MODERATE (5-7), TAB 02/04/22 Buspirone HCl (Buspirone HCl) 10 Mg Tablet, 10 MG PO, TAB 05/21/21 Discontinued Scripts Atorvastatin Calcium (Atorvastatin Calcium) 40 Mg Tablet, 40 MG PO HS, #90 TAB 0 Refills LAST FILLED 10-14-2019 #90 Prov:DOROTEO HORAN MD 03/14/20 Metoprolol Succinate (Metoprolol Succinate) 100 Mg Tab.er.24h, 100 MG PO BID, #60 TAB 0 Refills Prov:DOROTEO HORAN MD 03/14/20 Insulin Glargine,Hum.rec.anlog (Lantus) 100 Unit/1 Ml Vial, 25 UNIT SQ HS, #10 VIAL 0 Refills Prov:DOROTEO HORAN MD 03/14/20 Amitriptyline HCl (Amitriptyline HCl) 25 Mg Tablet, 25 MG PO HS, #30 TAB 0 Refills LAST FILLED 10-14-2019 #90 Prov:DOROTEO HORAN MD 03/14/20 Objective Exam Right Hip: Dressing with mild drainage otherwise intact, +DF, no s/s of DVT Vital Signs Vital Signs Date Time Temp Pulse Resp B/P (MAP) Pulse Ox O2 Delivery O2 Flow Rate FiO2 02/13/22 16:11 36.0 104 18 124/68 (86) 94 Nasal Cannula 2.00 02/13/22 12:09 36.0 102 18 124/70 (88) 97 Nasal Cannula 2.00 02/13/22 08:45 93 Nasal Cannula 2.00 02/13/22 08:00 93 Nasal Cannula 2.00 02/13/22 07:40 36.4 104 18 138/66 (90) 94 Nasal Cannula 2.00 02/13/22 04:00 36.9 111 18 131/66 (87) 93 Nasal Cannula 2.00 02/13/22 00:00 36.2 105 19 138/60 (86) 94 Nasal Cannula 2.00 02/12/22 20:30 92 Nasal Cannula 2.00 02/12/22 19:10 36.5 105 20 132/76 (94) 95 Nasal Cannula 2.00 I & O 02/13/22 07:00 Intake Total 1880 ml Output Total 1300 ml Balance 580 ml Lab Results Laboratory Tests 02/12/22 20:34: Glucometer 122H 02/13/22 04:54: Glucometer 158H 02/13/22 11:39: Glucometer 190H 02/13/22 16:10: Glucometer 127H Assessment and Plan Assessment Right Hip OA s/p R SALTY Problem List Right Hip OA s/p R SALTY Plan Needs rehab, rehab denied, will try swing bed continue therapy efforts continue dvt prophylaxis Final Diagonsis Right Hip OA s/p R SALTY Level of the visit: Level 3 (postop global) RUDY CHOW MD Feb 13, 2022 16:20
[2022-02-13] MEDS ORDERED: FENTANYL PATCH REMOVAL TP SCH (16:29)
[2022-02-13] MEDS ORDERED: fentaNYL PATCH 12 MCG (DURAGESIC) TD SCH (16:30)
--- NOTE | 2022-02-13 16:34 | Progress Note - Hospitalist ---
Subjective HPI/CC On Admission Date Seen by Provider: Feb 13, 2022 Time Seen by Provider: 11:10 Caren Patten is a 71 year old female with PMH HTN, HLD, T2DM, GERD, COPD, morbid obesity, who was admitted for right total hip arthroplasty due to right hip primary osteoarthritis. The hospitalist service was consulted for medical co- management. She was altered yesterday and she says this was due to sleepiness. She hadn't been sleeping very well prior to that. She has no lethargy or confusion today. She did not work much with therapy yesterday because she was too tired. Today she has already been up and walked in the halls with them. She is motivated to gain strength. She is at her normal state of health. She has been eating and drinking. She denies fever, chills, chest pain, shortness of breath, cough, abdominal pain, nausea, vomiting, diarrhea, and dysuria. Subjective/Events-last exam She is doing well. She has been up and worked with therapy. She has been eating and drinking. She is sleeping well. Objective Exam Vital Signs Vital Signs Date Time Temp Pulse Resp B/P (MAP) Pulse Ox O2 Delivery O2 Flow Rate FiO2 02/13/22 16:11 36.0 104 18 124/68 (86) 94 Nasal Cannula 2.00 Capillary Refill : General Appearance: No Apparent Distress, Obese Respiratory: Lungs Clear, No Respiratory Distress Cardiovascular: Regular Rate, Rhythm, No Murmur Gastrointestinal: Normal Bowel Sounds, Soft Neurologic/Psychiatric: Alert, Normal Mood/Affect Results/Procedures Lab Patient resulted labs reviewed. Imaging: Reviewed Imaging Report Assessment/Plan Assessment and Plan Assess & Plan/Chief Complaint Right hip primary osteoarthritis s/p right total hip arthroplasty Dr. Crabtree, orthopedic surgery, primary Pain regimen Bowel regimen Incentive spirometry Lovenox PT/OT IRF accepted, insurance denied, [id number] denied HTN HLD T2DM GERD COPD Morbid obesity Continue home meds DVT prophylaxis: Lovenox Diagnosis/Problems Diagnosis/Problems (1) Status post right hip replacement Status: Acute (2) Primary osteoarthritis of right hip Status: Acute (3) HTN (hypertension) Status: Chronic (4) HLD (hyperlipidemia) Status: Chronic (5) T2DM (type 2 diabetes mellitus) Status: Chronic (6) GERD (gastroesophageal reflux disease) Status: Chronic (7) COPD (chronic obstructive pulmonary disease) Status: Chronic (8) Morbid obesity Status: Chronic CIERRA NEAL MD Feb 13, 2022 16:34
[2022-02-13] MEDS ORDERED: fentaNYL PATCH 25 MCG (DURAGESIC) TD SCH (18:00)
[2022-02-13] MEDS: AMITRIPTYLINE 25 MG (ELAVIL) TAB PO SCH (21:04)
[2022-02-14 04:28] VITALS: BP 124/75
[2022-02-14] MEDS: ENOXAPARIN 40 MG/0.4 ML (LOVENOX) SYR SQ SCH ×2 (04:34→17:15)
[2022-02-14] MEDS: inSUlin ASPART (NovoLOG) 1 UNIT/0.01 ML (CHARGE PER UNIT) SC SCH ×4 (05:40→20:44)
[2022-02-14] MEDS: MULTIVIT W/MINERALS TAB (THERAGRAN M) PO SCH (06:23)
[2022-02-14 08:00] VITALS: BP 137/85
--- NOTE | 2022-02-14 08:33 | Physical Therapy Progress Note ---
Therapy Progress Note Pt reclined in bed upon arrival to room, awake eating breakfast. She reports that she just got back to bed, she had been sitting up in the chair since 0 this morning. She denies any OOB or supine exercises this date. Pt educated on importance of OOB activities and pt continues to decline. Will follow up on Wednesday. 1, ref ([id number]) SUSANA FANG PT Feb 14, 2022 08:33
[2022-02-14] MEDS: ASPIRIN E.C. 81 MG (ECOTRIN) TAB PO SCH ×2 (09:04→17:15)
[2022-02-14] MEDS: [UNRECOGNIZED DRUG - REMARK] PO SCH (09:21)
[2022-02-14] MEDS: CYCLOBENZAPRINE 10 MG (FLEXERIL) TAB PO SCH ×2 (09:24→20:54)
[2022-02-14] MEDS: GABAPENTIN 600 MG (NEURONTIN) TAB PO SCH ×4 (09:25→21:01)
[2022-02-14] MEDS: DOCUSATE SODIUM 100 MG (COLACE) CAP PO SCH ×2 (09:26→20:54)
[2022-02-14] MEDS: [UNRECOGNIZED DRUG - REMARK] PO SCH (09:26)
[2022-02-14] MEDS: LOSARTAN 25 MG (COZAAR) TAB PO SCH (09:27)
[2022-02-14] MEDS: meTOprolol SUCCINATE 100 MG (TOPROL XL) TAB PO SCH ×2 (09:28→20:55)
[2022-02-14] MEDS: TRELEGY IH SCH (10:24)
[2022-02-14 12:00] VITALS: BP 111/71
[2022-02-14] MEDS: IBUPROFEN 600 MG (MOTRIN) TAB PO PRN (12:13)
[2022-02-14] MEDS: VICTOZA 18 MG/3 ML SQ SCH (12:14)
[2022-02-14 16:29] VITALS: BP 128/67
--- NOTE | 2022-02-14 18:21 | Progress Note - Ortho ---
Progress Note Subjective Date of Exam 02/14/22 Chief Complaint POD #5 R SALTY HPI/Events since last exam making progress, feels like she had a good day today Review of Systems - Allergies: Coded Allergies: Sulfa (Sulfonamide Antibiotics) (Verified Allergy, Unknown, 02/04/22) latex (Verified Allergy, Unknown, RASH, 02/04/22) lisinopril (Verified Allergy, Unknown, EDEMA, 02/04/22) metformin (Verified Allergy, Unknown, EDEMA, 02/04/22) Home Meds Reported Medications Losartan Potassium (Losartan Potassium) 25 Mg Tablet, 25 MG PO DAILY, TAB 02/10/22 Metoprolol Succinate (Metoprolol Succinate) 100 Mg Tab.er.24h, 100 MG PO BID, TAB 02/10/22 Atorvastatin Calcium (Atorvastatin Calcium) 40 Mg Tablet, 40 MG PO HS, TAB 02/10/22 Amitriptyline HCl (Amitriptyline HCl) 25 Mg Tablet, 25 MG PO HS, TAB 02/10/22 Ibuprofen (Ibuprofen) 200 Mg Capsule, 400-600 MG PO TID PRN for PAIN-MILD (1-4), CAP 02/10/22 Liraglutide (Victoza 3-Segundo) 0.6 Mg/0.1 Ml (18 Mg/3 Ml) Pen.injctr, 1.8 MG SQ 1200, EA 02/04/22 Albuterol Sulfate (PROAIR HFA) 1 Puff Puff, 2 PUFF IH Q4H PRN for SHORTNESS OF BREATH, EA 02/04/22 Insulin Glargine,Hum.rec.anlog (Lantus Solostar) 100 Unit/Ml (3 Ml) Insuln.pen, 15 UNIT SQ 1800, EA 02/04/22 Insulin Glargine,Hum.rec.anlog (Lantus Solostar) 100 Unit/Ml (3 Ml) Insuln.pen, 25 UNIT SQ DAILY, EA 02/04/22 Dapagliflozin Propanediol (Farxiga) 10 Mg Tablet, 10 MG PO DAILY, TAB 02/04/22 Cyclobenzaprine HCl (Cyclobenzaprine HCl) 10 Mg Tablet, 10 MG PO BID, TAB 02/04/22 Albuterol Sulfate (Albuterol Sulfate) 2.5 Mg/3 Ml (0.083 %) Vial.neb, 3 ML INH Q6H PRN for SHORTNESS OF BREATH, EA 02/04/22 Omeprazole (Omeprazole) 20 Mg Tab.rap.dr, 20 MG PO DAILY, EA 05/21/21 Fluticasone/Umeclidin/Vilanter (Trelegy Ellipta 100-62.5-25) 1 Each Blst.w.dev, 1 EACH IH DAILY 05/21/21 Gabapentin (Gabapentin) 600 Mg Tablet, 600 MG PO TID, TAB 05/21/21 Citalopram Hydrobromide (Citalopram HBr) 20 Mg Tablet, 20 MG PO DAILY, TAB 03/12/20 Discontinued Reported Medications Ibuprofen (Ibuprofen) 600 Mg Tablet, 600 MG PO Q6H PRN for PAIN-MILD, TAB 02/04/22 Hydrocodone/Acetaminophen (Hydrocodone-Acetamin 5-325 mg) 5 Mg-325 Mg Tablet, 1 TAB PO Q4H PRN for PAIN-MODERATE (5-7), TAB 02/04/22 Buspirone HCl (Buspirone HCl) 10 Mg Tablet, 10 MG PO, TAB 05/21/21 Discontinued Scripts Atorvastatin Calcium (Atorvastatin Calcium) 40 Mg Tablet, 40 MG PO HS, #90 TAB 0 Refills LAST FILLED 10-14-2019 #90 Prov:DOROTEO HORAN MD 03/14/20 Metoprolol Succinate (Metoprolol Succinate) 100 Mg Tab.er.24h, 100 MG PO BID, #60 TAB 0 Refills Prov:DOROTEO HORAN MD 03/14/20 Insulin Glargine,Hum.rec.anlog (Lantus) 100 Unit/1 Ml Vial, 25 UNIT SQ HS, #10 VIAL 0 Refills Prov:DOROTEO HORAN MD 03/14/20 Amitriptyline HCl (Amitriptyline HCl) 25 Mg Tablet, 25 MG PO HS, #30 TAB 0 Refills LAST FILLED 10-14-2019 #90 Prov:DOROTEO HORAN MD 03/14/20 Objective Exam Constitutional: [] HEENT: [] Neck: [] Cardiovascular: [] Respiratory: [] Gastrointestinal: [] Genitourinary: [] Skin: [] Back/Spine: [] Extremities: [] Neurologic: [] Psychiatric: [] Hematologic/lymphatic/immunologic: [] Vital Signs Vital Signs Date Time Temp Pulse Resp B/P (MAP) Pulse Ox O2 Delivery O2 Flow Rate FiO2 02/14/22 16:29 36.0 94 18 128/67 (87) 92 Nasal Cannula 2.00 02/14/22 12:00 36.0 93 16 111/71 (84) 92 Nasal Cannula 2.00 02/14/22 08:00 36.0 94 18 137/85 (102) 95 Nasal Cannula 2.00 02/14/22 08:00 Nasal Cannula 2.00 02/14/22 05:05 36.4 02/14/22 04:28 36.4 110 20 124/75 (91) 94 Nasal Cannula 2.00 02/13/22 23:38 36.1 100 22 121/79 (93) 92 Nasal Cannula 2.00 02/13/22 21:32 36.0 02/13/22 21:02 36.0 02/13/22 20:00 Nasal Cannula 2.00 02/13/22 20:00 36.2 104 18 132/78 (96) 90 Nasal Cannula 2.00 02/13/22 19:17 86 Nasal Cannula 2.00 I & O 02/14/22 07:00 Intake Total 1600 ml Output Total 550 ml Balance 1050 ml Lab Results Laboratory Tests 02/13/22 20:51: Glucometer 186H 02/14/22 05:28: Glucometer 164H 02/14/22 10:47: Glucometer 146H 02/14/22 10:55: Glucometer 135H 02/14/22 15:24: Glucometer 164H Assessment and Plan Assessment R Hip Primary OA s/p R SALTY Problem List R Hip Primary OA s/p R SALTY Plan PT/OT DVT prophylaxis Consider SWB vs. home with home health on Wednesday Final Diagonsis R Hip Primary OA s/p R SALTY Level of the visit: Level 3 (postop global) RUDY CHOW MD Feb 14, 2022 18:21
[2022-02-14 20:39] VITALS: BP 112/70
[2022-02-14] MEDS: AMITRIPTYLINE 25 MG (ELAVIL) TAB PO SCH (20:54)
[2022-02-15] VITALS (7 sets, daily range): BP systolic 115–134; BP diastolic 60–80
[2022-02-15] MEDS: inSUlin ASPART (NovoLOG) 1 UNIT/0.01 ML (CHARGE PER UNIT) SC SCH ×4 (06:08→20:51)
[2022-02-15] MEDS: MULTIVIT W/MINERALS TAB (THERAGRAN M) PO SCH (06:12)
[2022-02-15] MEDS: APIXABAN 2.5 MG (ELIQUIS) TABLET PO SCH ×2 (09:13→21:06)
[2022-02-15] MEDS: [UNRECOGNIZED DRUG - REMARK] PO SCH (09:14)
[2022-02-15] MEDS: CYCLOBENZAPRINE 10 MG (FLEXERIL) TAB PO SCH ×2 (09:15→21:06)
[2022-02-15] MEDS: DOCUSATE SODIUM 100 MG (COLACE) CAP PO SCH ×2 (09:15→21:06)
[2022-02-15] MEDS: meTOprolol SUCCINATE 100 MG (TOPROL XL) TAB PO SCH ×2 (09:16→21:07)
[2022-02-15] MEDS: TRELEGY IH SCH (09:16)
[2022-02-15] MEDS: [UNRECOGNIZED DRUG - REMARK] PO SCH (09:17)
[2022-02-15] MEDS: LOSARTAN 25 MG (COZAAR) TAB PO SCH (09:17)
[2022-02-15] MEDS: GABAPENTIN 600 MG (NEURONTIN) TAB PO SCH ×3 (09:18→21:12)
[2022-02-15] MEDS: VICTOZA 18 MG/3 ML SQ SCH (11:18)
--- NOTE | 2022-02-15 14:47 | Progress Note - Ortho ---
Progress Note Subjective Date of Exam 02/15/22 Chief Complaint POD #6 R SALTY HPI/Events since last exam feels like she is making progress despite essentially not having therapy this weekend Review of Systems - Allergies: Coded Allergies: Sulfa (Sulfonamide Antibiotics) (Verified Allergy, Unknown, 02/04/22) latex (Verified Allergy, Unknown, RASH, 02/04/22) lisinopril (Verified Allergy, Unknown, EDEMA, 02/04/22) metformin (Verified Allergy, Unknown, EDEMA, 02/04/22) Home Meds Reported Medications Losartan Potassium (Losartan Potassium) 25 Mg Tablet, 25 MG PO DAILY, TAB 02/10/22 Metoprolol Succinate (Metoprolol Succinate) 100 Mg Tab.er.24h, 100 MG PO BID, TAB 02/10/22 Atorvastatin Calcium (Atorvastatin Calcium) 40 Mg Tablet, 40 MG PO HS, TAB 02/10/22 Amitriptyline HCl (Amitriptyline HCl) 25 Mg Tablet, 25 MG PO HS, TAB 02/10/22 Ibuprofen (Ibuprofen) 200 Mg Capsule, 400-600 MG PO TID PRN for PAIN-MILD (1-4), CAP 02/10/22 Liraglutide (Victoza 3-Segundo) 0.6 Mg/0.1 Ml (18 Mg/3 Ml) Pen.injctr, 1.8 MG SQ 1200, EA 02/04/22 Albuterol Sulfate (PROAIR HFA) 1 Puff Puff, 2 PUFF IH Q4H PRN for SHORTNESS OF BREATH, EA 02/04/22 Insulin Glargine,Hum.rec.anlog (Lantus Solostar) 100 Unit/Ml (3 Ml) Insuln.pen, 15 UNIT SQ 1800, EA 02/04/22 Insulin Glargine,Hum.rec.anlog (Lantus Solostar) 100 Unit/Ml (3 Ml) Insuln.pen, 25 UNIT SQ DAILY, EA 02/04/22 Dapagliflozin Propanediol (Farxiga) 10 Mg Tablet, 10 MG PO DAILY, TAB 02/04/22 Cyclobenzaprine HCl (Cyclobenzaprine HCl) 10 Mg Tablet, 10 MG PO BID, TAB 02/04/22 Albuterol Sulfate (Albuterol Sulfate) 2.5 Mg/3 Ml (0.083 %) Vial.neb, 3 ML INH Q6H PRN for SHORTNESS OF BREATH, EA 02/04/22 Omeprazole (Omeprazole) 20 Mg Tab.rap.dr, 20 MG PO DAILY, EA 05/21/21 Fluticasone/Umeclidin/Vilanter (Trelegy Ellipta 100-62.5-25) 1 Each Blst.w.dev, 1 EACH IH DAILY 05/21/21 Gabapentin (Gabapentin) 600 Mg Tablet, 600 MG PO TID, TAB 05/21/21 Citalopram Hydrobromide (Citalopram HBr) 20 Mg Tablet, 20 MG PO DAILY, TAB 03/12/20 Discontinued Reported Medications Ibuprofen (Ibuprofen) 600 Mg Tablet, 600 MG PO Q6H PRN for PAIN-MILD, TAB 02/04/22 Hydrocodone/Acetaminophen (Hydrocodone-Acetamin 5-325 mg) 5 Mg-325 Mg Tablet, 1 TAB PO Q4H PRN for PAIN-MODERATE (5-7), TAB 02/04/22 Buspirone HCl (Buspirone HCl) 10 Mg Tablet, 10 MG PO, TAB 05/21/21 Discontinued Scripts Atorvastatin Calcium (Atorvastatin Calcium) 40 Mg Tablet, 40 MG PO HS, #90 TAB 0 Refills LAST FILLED 10-14-2019 #90 Prov:DOROTEO HORAN MD 03/14/20 Metoprolol Succinate (Metoprolol Succinate) 100 Mg Tab.er.24h, 100 MG PO BID, #60 TAB 0 Refills Prov:DOROTEO HORAN MD 03/14/20 Insulin Glargine,Hum.rec.anlog (Lantus) 100 Unit/1 Ml Vial, 25 UNIT SQ HS, #10 VIAL 0 Refills Prov:DOROTEO HORAN MD 03/14/20 Amitriptyline HCl (Amitriptyline HCl) 25 Mg Tablet, 25 MG PO HS, #30 TAB 0 Refills LAST FILLED 10-14-2019 #90 Prov:DOROTEO HORAN MD 03/14/20 Objective Exam Right Hip: Dressing C/D/I, +DF of ankle, no s/s of DVT Vital Signs Vital Signs Date Time Temp Pulse Resp B/P (MAP) Pulse Ox O2 Delivery O2 Flow Rate FiO2 02/15/22 12:04 36.3 95 18 134/80 (98) 96 Nasal Cannula 2.00 02/15/22 08:00 Nasal Cannula 2.00 02/15/22 07:47 36.6 100 18 122/74 (90) 95 Nasal Cannula 2.00 02/15/22 04:00 36.1 92 18 123/72 (89) 95 Nasal Cannula 2.00 02/15/22 00:00 36.0 90 17 123/75 (91) 94 Nasal Cannula 2.00 02/14/22 20:50 Nasal Cannula 2.00 02/14/22 20:39 36.5 96 18 112/70 (84) 92 Nasal Cannula 2.00 02/14/22 16:29 36.0 94 18 128/67 (87) 92 Nasal Cannula 2.00 I & O 02/15/22 07:00 Intake Total 1170 ml Output Total 1600 ml Balance -430 ml Lab Results Laboratory Tests 02/14/22 15:24: Glucometer 164H 02/15/22 05:27: Glucometer 111H 02/15/22 10:30: Glucometer 156H Assessment and Plan Assessment R Hip OA s/p R SALTY Problem List R Hip OA s/p R SALTY Plan Plan for home with home health tomorrow; will discharge in AM Final Diagonsis R Hip OA s/p R SALTY Level of the visit: Level 3 (postop global) RUDY CHOW MD Feb 15, 2022 14:47
[2022-02-15] MEDS: AMITRIPTYLINE 25 MG (ELAVIL) TAB PO SCH (21:06)
[2022-02-16 04:00] VITALS: BP 133/83
[2022-02-16] MEDS: inSUlin ASPART (NovoLOG) 1 UNIT/0.01 ML (CHARGE PER UNIT) SC SCH (06:06)
[2022-02-16] MEDS: MULTIVIT W/MINERALS TAB (THERAGRAN M) PO SCH (06:06)
[2022-02-16] MEDS ORDERED: APIX2.5T PO (07:41)
[2022-02-16] MEDS ORDERED: OXC5T PO (07:41)
--- NOTE | 2022-02-16 07:47 | Discharge Summary ---
Discharge Summary Hospital Course Problems/Dx: (1) Status post right hip replacement Status: Acute (2) Primary osteoarthritis of right hip Status: Acute (3) HTN (hypertension) Status: Chronic (4) HLD (hyperlipidemia) Status: Chronic (5) T2DM (type 2 diabetes mellitus) Status: Chronic (6) GERD (gastroesophageal reflux disease) Status: Chronic (7) COPD (chronic obstructive pulmonary disease) Status: Chronic (8) Morbid obesity Status: Chronic Hospital Course Date of Admission: Feb 09, 2022 at 06:37 Admission Diagnosis : Family Physician/Provider: Sheryl Narvaez Clam Shucker Date of Discharge: 02/16/22 Discharge Diagnosis: [Right Hip Primary Osteoarthritis s/p Right Total Hip Arthroplasty ] Hospital Course: [Patient was admitted on 02/09/22. Underwent R SALTY. Posoperatively was admitted to regular floor. On night of surgery began mechanical DVT prophylaxis. Began to work with therapy and had significant difficulty initially. Acute rehab consultation was obtained; she was accepted, however insurance denied. She continued to make slow progress with therapy. Pain was controlled initially on oral medication plus a transdermal patch. Hospitalist consult was obtained for brief mental status changes which did resolve. She continued to make progress and declined therapy on Wednesday and then was without therapy on Wednesday. On Wednesday, it was determined the best course of action would be discharge home with home health physical therapy.] Labs and Pending Lab Test: Laboratory Tests 02/15/22 10:30: Glucometer 156H 02/15/22 15:28: Glucometer 156H 02/15/22 20:11: Glucometer 169H 02/16/22 05:54: Glucometer 135H Home Meds Active Oxyir Tablet (Oxycodone HCl) 5 Mg Tab 5 Mg PO Q4H PRN 7 Days Eliquis (Apixaban) 2.5 Mg Tablet 2.5 Mg PO BID 28 Days Reported Losartan Potassium 25 Mg Tablet 25 Mg PO DAILY Metoprolol Succinate 100 Mg Tab.er.24h 100 Mg PO BID Atorvastatin Calcium 40 Mg Tablet 40 Mg PO HS Amitriptyline HCl 25 Mg Tablet 25 Mg PO HS Ibuprofen 200 Mg Capsule 400-600 Mg PO TID PRN Victoza 3-Segundo (Liraglutide) 0.6 Mg/0.1 Ml (18 Mg/3 Ml) Pen.injctr 1.8 Mg SQ 1200 Proair Hfa (Albuterol Sulfate) 1 Puff Puff 2 Puff IH Q4H PRN Lantus Solostar (Insulin Glargine,Hum.rec.anlog) 100 Unit/Ml (3 Ml) Insuln.pen 15 Unit SQ 1800 Lantus Solostar (Insulin Glargine,Hum.rec.anlog) 100 Unit/Ml (3 Ml) Insuln.pen 25 Unit SQ DAILY Farxiga (Dapagliflozin Propanediol) 10 Mg Tablet 10 Mg PO DAILY Cyclobenzaprine HCl 10 Mg Tablet 10 Mg PO BID Albuterol Sulfate 2.5 Mg/3 Ml (0.083 %) Vial.neb 3 Ml INH Q6H PRN Omeprazole 20 Mg Tab.rap.dr 20 Mg PO DAILY Trelegy Ellipta 100-62.5-25 (Fluticasone/Umeclidin/Vilanter) 1 Each Blst.w.dev 1 Each IH DAILY Gabapentin 600 Mg Tablet 600 Mg PO TID Citalopram HBr (Citalopram Hydrobromide) 20 Mg Tablet 20 Mg PO DAILY Assessment/Pt Instructions F/U in office next week. Remain WBAT with walker. Follow posterior hip precautions. Keep incision site dry. Change dressing at least every other day. Discharge Physical Examination Vital Signs Vital Signs Date Time Temp Pulse Resp B/P (MAP) Pulse Ox O2 Delivery O2 Flow Rate FiO2 02/16/22 04:00 36.7 90 18 133/83 (100) 92 Nasal Cannula 2.00 Extremity: Other (R Leg: Dressing C/D/I, +DF of ankle, no s/s of DVT) Allergies: Coded Allergies: Sulfa (Sulfonamide Antibiotics) (Verified Allergy, Unknown, 02/04/22) latex (Verified Allergy, Unknown, RASH, 02/04/22) lisinopril (Verified Allergy, Unknown, EDEMA, 02/04/22) metformin (Verified Allergy, Unknown, EDEMA, 02/04/22) Discharge Summary Date of Admission Feb 09, 2022 at 06:37 Date of Discharge Discharge Diagnosis (1) Status post right hip replacement Status: Acute (2) Primary osteoarthritis of right hip Status: Acute (3) HTN (hypertension) Status: Chronic (4) HLD (hyperlipidemia) Status: Chronic (5) T2DM (type 2 diabetes mellitus) Status: Chronic (6) GERD (gastroesophageal reflux disease) Status: Chronic (7) COPD (chronic obstructive pulmonary disease) Status: Chronic (8) Morbid obesity Status: Chronic RUDY CHOW MD Feb 16, 2022 07:47
--- NOTE | 2022-02-16 07:49 | D/C HH Face to Face Order ---
D/C Face to Face Orders Instructions for Patient Via [facility], Patient Instructions/FollowUp: F/U next week as scheduled. Posterior hip precautions. WBAT with walker. Dry dressing at least every other day; keep surgical incision dry. Physician to follow Patient: Luigi Crabtree Discharge Diet for Home: ADA Diet Patient Data-Allergies,Ht & Wt Patient Allergies: Coded Allergies: Sulfa (Sulfonamide Antibiotics) (Verified Allergy, Unknown, 02/04/22) latex (Verified Allergy, Unknown, RASH, 02/04/22) lisinopril (Verified Allergy, Unknown, EDEMA, 02/04/22) metformin (Verified Allergy, Unknown, EDEMA, 02/04/22) Height (Feet): 5 Height (Inches): 0.00 Weight (Pounds): 220 Weight (Ounces): 0.3 Home Health Need/Face to Face Date of Face to Face: Feb 16, 2022 Clinical Findings: Muscle weakness, Pain with ambulation I have seen Pt [id number]: Yes Discharged To: Home Diagnosis/Conditions: Right Hip Primary Osteoarthritis s/p R SALTY Patient is Homebound due to: Muscle weakness, Pain w/ambulation Homebound Status Due to the above stated illness, injury or surgical procedure (medical condition or diagnosis) and associated clinical findings, the patient is homebound because of his/her inability to leave home except with aid of a supportive device and/or person AND leaving the home requires a considerable and taxing effort or is medically contraindicated. Pt req the following assistanc: Walker Home Health Nursing Orders Home Health Services Order: Physical Therapy-Evaluate & Treat Home Health Infusion Therapy Line Start Date: Feb 09, 2022 Therapy Orders Therapy Orders: Physical Therapy Therapy Specific Orders: Gait training, Increase strength/endurance, Restore ROM Certify Stmt I certify that this patient is under my care and that I, a nurse practitioner or a physician; a recruiting assistant working with me, had a face to face encounter that - meets the physician face to face encounter requirements with this patient as dated. LUIGI CRABTREE MD Feb 16, 2022 07:49
[2022-02-16 07:59] VITALS: BP 170/79
[2022-02-16] MEDS: TRELEGY IH SCH (08:17)
[2022-02-16] MEDS: APIXABAN 2.5 MG (ELIQUIS) TABLET PO SCH (09:01)
[2022-02-16] MEDS: LOSARTAN 25 MG (COZAAR) TAB PO SCH (09:02)
[2022-02-16] MEDS: meTOprolol SUCCINATE 100 MG (TOPROL XL) TAB PO SCH (09:02)
[2022-02-16] MEDS: [UNRECOGNIZED DRUG - REMARK] PO SCH (09:03)
[2022-02-16] MEDS: DOCUSATE SODIUM 100 MG (COLACE) CAP PO SCH (09:04)
[2022-02-16] MEDS: [UNRECOGNIZED DRUG - REMARK] PO SCH (09:04)
[2022-02-16] MEDS: CYCLOBENZAPRINE 10 MG (FLEXERIL) TAB PO SCH (09:04)
[2022-02-16] MEDS: GABAPENTIN 600 MG (NEURONTIN) TAB PO SCH (09:09)
--- NOTE | 2022-02-16 11:17 | Physical Therapy Progress Note ---
Therapy Progress Note Patient adamantly declined PT stating, "I'm going home. I'll move there." PT attempted to educate patient on importance of OOB activity and exercise to improve strength and mobility, however, patient continued to decline PT. Patient also had declined PT over the weekend. Patient states to this PT,"I over did it this weekend with all the walking and exercising I did." As stated, patient declined PT over the weekend. 1 ref ([phone]) REDD MENDOZA PT Feb 16, 2022 11:17
== END 2022-02-16 10:57 | disposition home or self-care (01) ==
LOC: UNDOADMOB 06:37 → INTOOBSV 06:37 → SDC 06:37 → 4TH 06:37 → SURG 06:38 → 4TH 06:38 → EDSTATUS 08:50 → SURG 09:05 → 4TH 09:05 → SDC 11:59 → 4TH 12:00 → SURG 12:07 → 4TH 12:07 → UNDODISOB 02-16 10:57
PROVIDERS: ADMIT Orthopaedic Surgery; ATTEND Orthopaedic Surgery
DX: M16.11 Unilateral primary osteoarthritis, right hip (principal); I10 Essential (primary) hypertension; E78.5 Hyperlipidemia, unspecified; E11.9 Type 2 diabetes mellitus without complications; K21.9 Gastro-esophageal reflux disease without esophagitis; J44.9 Chronic obstructive pulmonary disease, unspecified; E66.01 Morbid (severe) obesity due to excess calories; Z68.41 Body mass index [BMI] 40.0-44.9, adult; Z79.51 Long term (current) use of inhaled steroids; Z79.4 Long term (current) use of insulin; Z87.891 Personal history of nicotine dependence; Z96.641 Presence of right artificial hip joint
CPT/HCPCS: 27130; 72170; 80048; 80306; 82947 ×8; 85014 ×2; 85018 ×2; 94640 ×4; 94664; 94760 ×5; 96361 ×4; 96366; 96372 ×3; 96374; 96375; 96376 ×2; 97110 ×4; 97116 ×2; 97162; 97166; 97530 ×3; 97535; C1776 ×4; 36415; G0378

== ENCOUNTER → 2022-03-31 | Outpatient (CLI) | payer MEDICARE ==
[~2022-03-31] MED LIST changes: +APIX2.5T PO; +IBUP-2185 PO; +LOSA25TA41 PO; +OXC5T PO
--- NOTE | 2022-03-31 13:00 | Diagnostic Imaging Report ---
INDICATION: Right hip replacement. Time of Exam: 8:42 AM 2 views right hip demonstrate postoperative changes of total hip arthroplasty. Prosthetic elements are in good position. No fracture or loosening is seen. IMPRESSION: Satisfactory postop appearance to the right hip. Dictated by: Dictated on workstation # [id number]
== END ==
LOC: ORTHO 08:25
PROVIDERS: ATTEND Orthopaedic Surgery
DX: Z47.89 Encounter for other orthopedic aftercare (principal); Z96.641 Presence of right artificial hip joint
CPT/HCPCS: 73502

== ENCOUNTER → 2022-05-12 | Outpatient (CLI) | payer MEDICARE | LOC: ORTHO 13:54 | PROVIDERS: ATTEND Orthopaedic Surgery | DX: Z47.89 Encounter for other orthopedic aftercare (principal) ==

== ENCOUNTER → 2022-06-17 | Outpatient (CLI) | payer MEDICARE | LOC: CARD 08:10 | PROVIDERS: ATTEND Internal Medicine Cardiovascular Disease | DX: I35.8 Other nonrheumatic aortic valve disorders (principal) | CPT/HCPCS: 93306 ==

== ENCOUNTER → 2022-06-23 | Outpatient (CLI) | payer MEDICARE ==
[~2022-06-23] MED LIST changes: +ALBU8.5H6 IH; -RT-ALBUINH IH
== END ==
LOC: ORTHO 09:00
PROVIDERS: ATTEND Orthopaedic Surgery
DX: Z96.641 Presence of right artificial hip joint (principal)
CPT/HCPCS: 99213

== ENCOUNTER → 2022-07-06 | Outpatient (CLI) | payer MEDICARE ==
[~2022-07-06] VITALS: Ht 152 cm; Wt 95.0 kg
[~2022-07-06] MED LIST changes: +CATHETER FLUSH 10 ML SYR IVP PRN; +REGADENOSON 0.4 MG/5 ML SYR (LEXISCAN) IV ONE
[2022-07-06 09:24] VITALS: BP 169/93
--- NOTE | 2022-07-06 12:09 | Cardiology Stress Test Report ---
Stress Test Report Date of Procedure/Referring: Date of Procedure: Jul 06, 2022 [facility] Admitting Physician Admitting Physician: Attending Physician: Rea Anthony MD Indications: CP Baseline Heart Rate: 72 Baseline Blood Pressure: Blood Pressure Systolic: 169 Blood Pressure Diastolic: 93 Baseline Vitals Vital Signs Date Time Temp Pulse Resp B/P (MAP) Pulse Ox O2 Delivery O2 Flow Rate FiO2 07/06/22 09:24 73 169/93 (118) Baseline EKG: Baseline EKG: NSR Summary After explaining the procedure to the patient, she signed a consent and then brought to the stress nuclear laboratory. Patient received 0.4 mg Lexiscan for stress test, ECG, heart rate and blood pressure were monitored continuously. Resting and stress dose of radio tracer were injected, imaging was acquired and reviewed in short axis, horizontal long axis and vertical long axis views. TID: 1.18 SSS: 6 SDS: 6 EF: 54 1. Patient tolerated Lexiscan well 2. Breast attenuation with mild reversible ischemia involving the basal to mid anterior wall most probably secondary to the breast attenuation. There is no significant ischemia or infarction noted on SPECT images 3. Normal left ventricular size with normal contractility, ejection fraction 54% Copy Copies To 1: [facility] [place] REA ANTHONY MD Jul 06, 2022 12:09
== END ==
LOC: CARD 07:45
PROVIDERS: ATTEND Internal Medicine Cardiovascular Disease
DX: I25.10 Atherosclerotic heart disease of native coronary artery without angina pectoris (principal); I10 Essential (primary) hypertension
CPT/HCPCS: 78452; 93017; A9502

== ENCOUNTER 2022-07-13 18:33 | Emergency (ER) | payer MEDICARE ==
[~2022-07-13] VITALS: Ht 152.4 cm; Wt 93.0 kg
[~2022-07-13 18:33] MED LIST changes: -CATHETER FLUSH 10 ML SYR IVP PRN; -REGADENOSON 0.4 MG/5 ML SYR (LEXISCAN) IV ONE
[2022-07-13] MEDS ORDERED: KETOROLAC 15 MG/ML VIAL IVP ONE (19:00)
[2022-07-13 19:32] LABS: BASOPHILS # (AUTO) 0.1 10^3/uL (0.0-0.1); BASOPHILS % (AUTO) 1 % (0-10); EOSINOPHILS # (AUTO) 0.5 10^3/uL (0.0-0.3); EOSINOPHILS % (AUTO) 5 % (0-10); HEMATOCRIT 43 % (35-52); HEMOGLOBIN 13.9 g/dL (11.5-16.0); LYMPHOCYTES # (AUTO) 3.7 10^3/uL (1.0-4.0); LYMPHOCYTES % (AUTO) 37 % (12-44); MEAN CORPUSCULAR HEMOGLOBIN 31 pg (25-34); MEAN CORPUSCULAR HGB CONC 32 g/dL (32-36); MEAN CORPUSCULAR VOLUME 98 fL (80-99); MEAN PLATELET VOLUME 9.6 fL (9.0-12.2); MONOCYTES # (AUTO) 0.7 10^3/uL (0.0-1.0); MONOCYTES % (AUTO) 7 % (0-12); NEUTROPHILS % (AUTO) 50 % (42-75); PLATELET COUNT 161 10^3/uL (130-400)
--- NOTE | 2022-07-13 19:46 | Diagnostic Imaging Report ---
PROCEDURE: CT urinary tract, rule out kidney stone. TECHNIQUE: Multiple contiguous axial images were obtained through the abdomen and pelvis without the use of intravenous contrast. Auto Exposure Controls were utilized during the CT exam to meet ALARA standards for radiation dose reduction. INDICATION: Left flank pain. FINDINGS: Lung bases are clear. Liver appears normal. Gallbladder is surgically absent. Pancreas is normal. There are some calcified granulomas in the spleen. There is moderate residue in the stomach. Adrenals appear normal. Kidneys appear normal. Ureters are not dilated. Small bowel is unremarkable. There is a large amount of stool in the colon. There is no appendicitis. There is no intraperitoneal free air or free fluid. Uterus appears to be surgically absent. There are no adnexal masses. IMPRESSION: No acute abnormality is seen in the abdomen or pelvis. Dictated by: Dictated on workstation # [id number]
[2022-07-13 19:51] LABS: ALBUMIN 3.7 GM/DL (3.2-4.5); BILIRUBIN,TOTAL 0.2 MG/DL (0.1-1.0); CALCIUM 8.8 MG/DL (8.5-10.1); POTASSIUM 5.2 MMOL/L (3.6-5.0)
[2022-07-13 19:52] LABS: BILIRUBIN,URINE NEGATIVE (NEGATIVE); CLARITY,URINE CLEAR; COLOR,URINE YELLOW; GLUCOSE, URINE (UA) 3+ (NEGATIVE); KETONES,URINE NEGATIVE (NEGATIVE); LEUKOCYTE ESTERASE ,URINE TRACE (NEGATIVE); NITRITE,URINE NEGATIVE (NEGATIVE); PH,URINE 5.5 (5-9); PROTEIN,URINE NEGATIVE (NEGATIVE)
--- NOTE | 2022-07-13 19:56 | ED Abdominal Pain ---
General Chief Complaint: Abdominal/GI Problems Stated Complaint: BACK/ L SIDE PAIN Nursing Triage Note: PT AMB TO FT 1 W C/O LEFT SIDED FLANK PAIN X3 HRS. PT A&OX4, REPORTS SHE HAS HX OF KIDNEY STONES. Source of Information: Patient Exam Limitations: No Limitations (CELSO JORDAN APRN) History of Present Illness Date Seen by Provider: Jul 13, 2022 Time Seen by Provider: 18:35 Initial Comments Patient is a 71-year-old female who presents to the emergency department with acute onset of left flank pain that began approximately 3 hours prior to arrival. Patient states she has a history of kidney stones and feels like that is what this could be. She states she has some mild nausea. States the pain does radiate from her left flank into her left anterior abdomen. She denies any shortness of breath, chest pain, vomiting. She denies any patrick blood in her urine. No recent trauma to the affected areas. (CELSO JORDAN APRN) Allergies and Home Medications Allergies Coded Allergies: Sulfa (Sulfonamide Antibiotics) (Verified Allergy, Unknown, 02/04/22) latex (Verified Allergy, Unknown, RASH, 02/04/22) lisinopril (Verified Allergy, Unknown, EDEMA, 02/04/22) metformin (Verified Allergy, Unknown, EDEMA, 02/04/22) Patient Home Medication List Home Medication List Reviewed: Yes (CELSO JORDAN APRN) Albuterol Sulfate (Albuterol Sulfate) 2.5 Mg/3 Ml (0.083 %) Vial.neb, 3 ML INH Q6H PRN for SHORTNESS OF BREATH, (Reported) Entered as Reported by: CODEY ZURITA on 02/04/22 1638 Albuterol Sulfate (Ventolin Hfa) 1 Puff Puff, 2 PUFF IH Q4H PRN for SHORTNESS OF BREATH, (Reported) Entered as Reported by: CODEY ZURITA on 02/04/22 1638 Amitriptyline HCl (Amitriptyline HCl) 25 Mg Tablet, 25 MG PO HS, (Reported) Entered as Reported by: DIANE CRAIG on 02/10/22 1251 Apixaban (Eliquis) 2.5 Mg Tablet, 2.5 MG PO BID Prescribed by: RUDY CHOW MD on 02/16/22 0741 Atorvastatin Calcium (Atorvastatin Calcium) 40 Mg Tablet, 40 MG PO HS, (Reported) Entered as Reported by: DIANE CRAIG on 02/10/22 1251 Citalopram Hydrobromide (Citalopram HBr) 20 Mg Tablet, 20 MG PO DAILY, (Reported) Entered as Reported by: ELODIA LOPEZ on 03/12/20 0844 Cyclobenzaprine HCl (Cyclobenzaprine HCl) 10 Mg Tablet, 10 MG PO BID, (Reported) Entered as Reported by: CODEY ZURITA on 02/04/22 163 Dapagliflozin Propanediol (Farxiga) 10 Mg Tablet, 10 MG PO DAILY, (Reported) Entered as Reported by: CODEY ZURITA on 02/04/221637 Fluticasone/Umeclidin/Vilanter (Trelegy Ellipta 100-62.5-25) 1 Each Blst.w.dev, 1 EACH IH DAILY, (Reported) Entered as Reported by: ANGELA GUZMAN on 05/21/21 142 Gabapentin (Gabapentin) 600 Mg Tablet, 600 MG PO TID, (Reported) Entered as Reported by: ANGELA GUZMAN on 05/21/21 142 Ibuprofen (Ibuprofen) 200 Mg Capsule, 400-600 MG PO TID PRN for PAIN-MILD (1-4), (Reported) Entered as Reported by: DIANE CRAIG on 02/10/22 125 Insulin Glargine,Hum.rec.anlog (Lantus Solostar) 100 Unit/Ml (3 Ml) Insuln.pen, 25 UNIT SQ DAILY, (Reported) Entered as Reported by: CODEY ZURITA on 02/04/22 163 Insulin Glargine,Hum.rec.anlog (Lantus Solostar) 100 Unit/Ml (3 Ml) Insuln.pen, 15 UNIT SQ 1800, (Reported) Entered as Reported by: CODEY ZURITA on 02/04/221637 Ketorolac Tromethamine (Ketorolac Tromethamine) 10 Mg Tablet, 10 MG PO Q6H Prescribed by: Celso Jordan on 07/13/222021 Liraglutide (Victoza 3-Segundo) 0.6 Mg/0.1 Ml (18 Mg/3 Ml) Pen.injctr, 1.8 MG SQ 1200, (Reported) Entered as Reported by: CODEY Maldonado PARMINDER on 02/04/22 1638 Losartan Potassium (Losartan Potassium) 25 Mg Tablet, 25 MG PO DAILY, (Reported) Entered as Reported by: DIANE CRAIG on 02/10/22 1251 Metoprolol Succinate (Metoprolol Succinate) 100 Mg Tab.er.24h, 100 MG PO BID, (Reported) Entered as Reported by: DIANE CRAIG on 02/10/22 1251 Omeprazole (Omeprazole) 20 Mg Tab.rap.dr, 20 MG PO DAILY, (Reported) Entered as Reported by: ANGELA GUZMAN on 05/21/21 1420 Oxycodone Hcl (Oxyir Tablet) 5 Mg Tab, 5 MG PO Q4H PRN for PAIN-SEVERE (8-10) Prescribed by: RUDY CHOW MD on 02/16/22 0741 Polyethylene Glycol 3350 (Miralax) 17 Gram Powd.pack, 17 GM PO DAILY PRN PRN for CONSTIPATION-1ST LINE Prescribed by: Celso Jordan on 07/13/222021 Review of Systems Review of Systems Constitutional: no symptoms reported EENTM: No Symptoms Reported Respiratory: No Symptoms Reported Cardiovascular: No Symptoms Reported Gastrointestinal: See HPI, Abdominal Pain Genitourinary: See HPI Musculoskeletal: no symptoms reported (CELSO JORDAN APRN) Past Ttkifxi-Gwqypf-Uvnshx Hx Patient Social History Tobacco Use?: No Use of E-Cig and/or Vaping dev: No Substance use?: No Alcohol Use?: No (CELSO JORDAN APRN) Immunizations Up To Date Tetanus Booster (TDap): Unknown PED Vaccines UTD: No First/Initial COVID19 Vaccinat: 09/2020 Second COVID19 Vaccination Dashawn: 10/2020 Third COVID19 Vaccination Date: 04/2021 COVID19 Vaccine Special Agent: MODERNA X3 (CELSO JORDAN APRN) Seasonal Allergies Seasonal Allergies: No (CELSO JORDAN APRN) Past Medical History Surgeries: Yes (BILAT KNEE REPLACEMENT; L ANKLE FX/ORIF;HYST/BSO;CATARACTS;URETERAL STENTS) Cardiac, Section, Eye Surgery, Gallbladder, Hysterectomy, Oophorectomy, Orthopedic, Renal Respiratory: Yes Pneumonia, COPD Currently Using CPAP: Yes Currently Using BIPAP: No Cardiac: Yes (HX OF ANGIOEDEMA DUE TO MEDICATION;CARDIAC CATH 03/2010-NO INTERVENTION) Chronic Edema/Swelling, Coronary Artery Disease, High Cholesterol, Hypertension Neurological: Yes Neuropathy Reproductive Disorders: Yes (hysterectomy) 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 GRADER History: Hysterectomy Sexually Transmitted Disease: Yes (TRICHOMONAS) HIV/AIDS: No Genitourinary: Yes (CHRONIC RENAL INSUFFICIENCT) Kidney Infection, Bladder Infection, Kidney Stones, Renal Failure Gastrointestinal: Yes (EGD'S) Gastroesophageal Reflux, Pancreatitis, Ulcer Musculoskeletal: Yes (BILATERAL KNEE REPLACEMENT; LEFT ANKLE FX/ORIF;CHRONIC GENERALIZED PAIN) Arthritis, Back Injury, Chronic Back Pain, Fractures Endocrine: Yes Diabetes, Insulin dep HEENT: Yes (ONLY HAS PERIPHERAL VISION IN LEFT EYE) Cataract Loss of Vision: Left Cancer: No Psychosocial: Yes Eating Disorder, Sleep Difficulties, Anxiety, Depression Integumentary: No Blood Disorders: No Adverse Reaction/Blood Tranf: No (CELSO JORDAN APRN) Family Medical History Alcoholism 09 SISTER 09 SISTER Cancer 03 MOTHER Cataract 09 SISTER Family history: Cardiovascular disease 09 BROTHER (HEART ATTACK) Family history: Diabetes mellitus 09 SISTER Family history: Glaucoma 09 SISTER 09 SISTER Family history: Hypertension 09 BROTHER 09 BROTHER 09 BROTHER Family history: Osteoporosis 09 SISTER 09 SISTER Kidney disease 09 SISTER Seizure disorder Stroke 09 BROTHER No Family History of: Abdominal aortic aneurysm Cancer of colon Chest pain Congenital heart disease Congestive heart failure Cystic fibrosis Dementia Dysphagia Family history: Allergy Family history: Alzheimer's disease Family history: Arthritis Family history: Breast disease Family history: Coronary thrombosis Family history: Gastrointestinal disease Headache Hearing loss Heart disease Hereditary disease History of - anemia History of - disorder History of - respiratory disease History of drug abuse Human immunodeficiency virus (HIV) seropositivity Hypercholesterolemia Infertile Malignant neoplasm of lung Myocardial infarction Parkinson's disease Prostate cancer Psychotic disorder Tuberculosis Visual impairment Heart Disease, Cancer, CVA, Diabetes (CELSO JORDAN APRN) Physical Exam Vital Signs Vital Signs - First Documented 07/13/22 18:36 Temp 35.6 Pulse 91 Resp 24 B/P (MAP) 195/105 (135) Pulse Ox 95 O2 Delivery Room Air (LYDIA,CHEN K DO) Vital Signs Capillary Refill : Less Than 3 Seconds (CELSO JORDAN APRN) Height/Weight/BMI Height: 5'0.00" Weight: 220lbs. 0.3oz. [id number]; 40.00 BMI Method:Stated General Appearance: WD/WN, no apparent distress HEENT: PERRL/EOMI, normal ENT inspection, TMs normal, pharynx normal Neck: non-tender, full range of motion, supple, normal inspection Respiratory: chest non-tender, lungs clear, normal breath sounds, no respiratory distress, no accessory muscle use Cardiovascular: regular rate, rhythm Gastrointestinal: normal bowel sounds, soft, tenderness (L flank and LLQ abd) Extremities: normal range of motion, non-tender, normal inspection, no pedal edema, no calf tenderness Neurologic/Psychiatric: no motor/sensory deficits, alert, normal mood/affect, oriented x 3 Skin: normal color, warm/dry Lymphatic: no adenopathy (CELSO JORDAN APRN) Progress/Results/Core Measures Results/Orders Lab Results Laboratory Tests Test 07/13/22 19:25 07/13/22 19:45 Range/Units White Blood Count 10.0 4.3-11.0 10^3/uL Red Blood Count 4.42 3.80-5.11 10^6/uL Hemoglobin 13.9 11.5-16.0 g/dL Hematocrit 43 35-52 % Mean Corpuscular Volume 98 80-99 fL Mean Corpuscular Hemoglobin 31 25-34 pg Mean Corpuscular Hemoglobin Concent 32 32-36 g/dL Red Cell Distribution Width 15.6 H 10.0-14.5 % Platelet Count 161 130-400 10^3/uL Mean Platelet Volume 9.6 9.0-12.2 fL Immature Granulocyte % (Auto) 0 % Neutrophils (%) (Auto) 50 42-75 % Lymphocytes (%) (Auto) 37 12-44 % Monocytes (%) (Auto) 7 0-12 % Eosinophils (%) (Auto) 5 0-10 % Basophils (%) (Auto) 1 0-10 % Neutrophils # (Auto) 5.0 1.8-7.8 10^3/uL Lymphocytes # (Auto) 3.7 1.0-4.0 10^3/uL Monocytes # (Auto) 0.7 0.0-1.0 10^3/uL Eosinophils # (Auto) 0.5 H 0.0-0.3 10^3/uL Basophils # (Auto) 0.1 0.0-0.1 10^3/uL Immature Granulocyte # (Auto) 0.0 0.0-0.1 10^3/uL Sodium Level 143 135-145 MMOL/L Potassium Level 5.2 H 3.6-5.0 MMOL/L Chloride Level 106 98-107 MMOL/L Carbon Dioxide Level 25 21-32 MMOL/L Anion Gap 12 5-14 MMOL/L Blood Urea Nitrogen 12 7-18 MG/DL Creatinine 1.00 0.60-1.30 MG/DL Estimat Glomerular Filtration Rate 61 BUN/Creatinine Ratio 12 Glucose Level 100 70-105 MG/DL Calcium Level 8.8 8.5-10.1 MG/DL Corrected Calcium 9.0 8.5-10.1 MG/DL Total Bilirubin 0.2 0.1-1.0 MG/DL Aspartate Amino Transf (AST/SGOT) 32 5-34 U/L Alanine Aminotransferase (ALT/SGPT) 16 0-55 U/L Alkaline Phosphatase 102 40-136 U/L Total Protein 8.0 6.4-8.2 GM/DL Albumin 3.7 3.2-4.5 GM/DL Urine Color YELLOW Urine Clarity CLEAR Urine pH 5.5 5-9 Urine Specific [place] >=1.030 1.016-1.022 Urine Protein NEGATIVE NEGATIVE Urine Glucose (UA) 3+ H NEGATIVE Urine Ketones NEGATIVE NEGATIVE Urine Nitrite NEGATIVE NEGATIVE Urine Bilirubin NEGATIVE NEGATIVE Urine Urobilinogen 0.2 < = 1.0 MG/DL Urine Leukocyte Esterase TRACE H NEGATIVE Urine RBC (Auto) TRACE-I H NEGATIVE Urine RBC 5-10 H /HPF Urine WBC 10-25 H /HPF Urine Squamous Epithelial Cells 2-5 /HPF Urine Crystals NONE /LPF Urine Bacteria FEW H /HPF Urine Casts PRESENT /LPF Urine Hyaline Casts RARE /LPF Urine Mucus NEGATIVE /LPF Urine Culture Indicated YES (CHEN FREEMAN DO) Medications Given in ED Current Medications Medications Dose Ordered Sig/Jasmina Route Start Time Stop Time Status Last Admin Dose Admin Acetaminophen/ Hydrocodone Bitart 1 ea ONCE ONCE PO 07/13/22 20:15 07/13/22 20:16 DC 07/13/22 20:23 1 EA Ketorolac Tromethamine 15 mg ONCE ONCE IVP 07/13/22 19:00 07/13/22 19:01 DC 07/13/22 19:27 15 MG (CLARENCE FREEMANA Jillian WINKLER) Vital Signs/I&O 07/13/22 07/13/22 18:36 20:27 Temp 35.6 Pulse 91 91 Resp 24 24 B/P (MAP) 195/105 (135) 195/105 Pulse Ox 95 95 O2 Delivery Room Air Room Air (CHEN FREEMAN DO) Blood Pressure Mean: 135 Progress Progress Note : Progress Note Patient is nontoxic and well-hydrated on exam. No adventitious lung sounds or increased work of breathing noted. Abdomen notable for tenderness to palpation of the left flank and left lower quadrant. Vital signs are reassuring. Patient was given a dose of ketorolac with minimal improvement in symptoms. Laboratory evaluation is largely unremarkable. Urinalysis with small hematuria. CT of the abdomen pelvis is nonacute other than large stool burden. Patient denies any specific issues with bowel movements in the recent past. Patient was given a dose of Lortab prior to discharge. Will be discharged home with analgesia. Follow-up with PCP. Return precautions for urgent symptomology discussed. Patient verbalized understanding. (CELSO JORDAN APRN) Departure Impression Primary Impression: Abdominal pain Qualified Codes: R10.32 - Left lower quadrant pain Additional Impression: Left flank pain Disposition: 01 HOME, SELF-CARE Condition: Stable Departure-Patient Inst. Referrals: [facility] [place] (PCP) Primary Care Physician JORDY NAPOLES APRN (Family) Primary Care Physician Patient Instructions: Flank Pain, Abdominal Pain, Adult ED Scripts Polyethylene Glycol 3350 (Miralax) 17 Gram Powd.pack 17 GM PO DAILY PRN PRN for CONSTIPATION-1ST LINE for 15 Days, #30 EACH Prov: CELSO JORDAN APRN 07/13/22 Ketorolac Tromethamine (Ketorolac Tromethamine) 10 Mg Tablet 10 MG PO Q6H for 5 Days, #20 TAB 0 Refills Prov: CELSO JORDAN APRN 07/13/22 ATTENDING PHYSICIAN NOTE: I WAS PHYSICALLY PRESENT ER PHYSICIAN, BUT I WAS NOT INVOLVED IN ANY DECISION MAKING OR ANY CARE OF THIS PATIENT, AND I AM NOT COLLABORATING PHYSICIAN. (CHEN FREEMAN DO) CELSO JORDAN APRN Jul 13, 2022 19:56 CHEN FREEMAN DO Jul 13, 2022 22:32
[2022-07-13 20:03] LABS: BACTERIA,URINE FEW /HPF; HYALINE CASTS, URINE RARE /LPF
[2022-07-13] MEDS ORDERED: HYDROcodone/APAP 5 MG/325 MG (LORTAB) TAB PO ONE (20:15)
[2022-07-13] MEDS ORDERED: POLY17PO6 PO (20:22)
[2022-07-13] MEDS ORDERED: KETO10TA PO (20:22)
[2022-07-13 20:27] VITALS: BP 195/105
== END 2022-07-13 20:27 | disposition home or self-care (01) ==
LOC: EDUNIT# 18:33 → ER 18:34
DX: R10.32 Left lower quadrant pain (principal); E11.9 Type 2 diabetes mellitus without complications; R31.9 Hematuria, unspecified; Z91.040 Latex allergy status; Z79.4 Long term (current) use of insulin; Z99.89 Dependence on other enabling machines and devices
CPT/HCPCS: 36415; 74176; 80053; 81000; 85025; 87088

== ENCOUNTER 2022-07-27 12:33 | Emergency (ER) | payer MEDICARE ==
[~2022-07-27] VITALS: Ht 152 cm; Wt 95.0 kg
[~2022-07-27 12:33] MED LIST changes: +KETO10TA PO; +POLY17PO6 PO
[2022-07-27] MEDS ORDERED: LIDOCAINE UROJET 2% GEL 10 ML PKG ONE (13:11)
[2022-07-27] MEDS ORDERED: LIDOCAINE UROJET 2% GEL 10 ML PKG TOP ONE (13:15)
--- NOTE | 2022-07-27 13:21 | ED GU-Female ---
General Chief Complaint: - Reproductive Stated Complaint: GYNECOLOGICAL PROBLEMS Nursing Triage Note: ARRIVED VIA AMB TO TRIAGE. TOTAL HYSTERECTOMY IN 1994 AND HAS BEEN BLEEDING LIKE SHE IS HAVING A PERIOD SINCE YESTERDAY. Source: patient Exam Limitations: no limitations History of Present Illness Date Seen by Provider: Jul 27, 2022 Time Seen by Provider: 13:15 Initial Comments 71-year-old female to ER by private vehicle with reports of lower abdominal cramping and vaginal bleeding since last night. She refers to her vagina as "tootles" and informs me that "tootle's is actin' a fool". This began at 1 AM last night. No dysuria. She does have suprapubic abdominal pain. Denies any d ysuria. She is noticed some reddish tent on her pad. She reports vaginal pain and cramping at 8 out of 10. She was here in the second half of June this year for abdominal pain and had a normal CT scan. She had a complete hysterectomy in 1994 for uterine fibroids. Timing/Duration: constant Severity/Quality: moderate Location: unknown Radiation: none, back Prior Genitourinary Problems: none Associated Symptoms: abdominal pain; No dysuria Allergies and Home Medications Allergies Coded Allergies: Sulfa (Sulfonamide Antibiotics) (Verified Allergy, Unknown, 02/04/22) latex (Verified Allergy, Unknown, RASH, 02/04/22) lisinopril (Verified Allergy, Unknown, EDEMA, 02/04/22) metformin (Verified Allergy, Unknown, EDEMA, 02/04/22) Patient Home Medication List Home Medication List Reviewed: Yes Albuterol Sulfate (Albuterol Sulfate) 2.5 Mg/3 Ml (0.083 %) Vial.neb, 3 ML INH Q6H PRN for SHORTNESS OF BREATH, (Reported) Entered as Reported by: CODEY ZURITA on 02/04/22 1638 Albuterol Sulfate (Ventolin Hfa) 1 Puff Puff, 2 PUFF IH Q4H PRN for SHORTNESS OF BREATH, (Reported) Entered as Reported by: CODEY ZURITA on 02/04/22 1638 Amitriptyline HCl (Amitriptyline HCl) 25 Mg Tablet, 25 MG PO HS, (Reported) Entered as Reported by: DIANE CRAIG on 02/10/22 1251 Apixaban (Eliquis) 2.5 Mg Tablet, 2.5 MG PO BID Prescribed by: RUDY CHOW MD on 02/16/22 0741 Atorvastatin Calcium (Atorvastatin Calcium) 40 Mg Tablet, 40 MG PO HS, (Reported) Entered as Reported by: DIANE CRAIG on 02/10/22 1251 Citalopram Hydrobromide (Citalopram HBr) 20 Mg Tablet, 20 MG PO DAILY, (Reported) Entered as Reported by: ELODIA LOPEZ on 03/12/20 0844 Cyclobenzaprine HCl (Cyclobenzaprine HCl) 10 Mg Tablet, 10 MG PO BID, (Reported) Entered as Reported by: CODEY ZURITA on 02/04/22 1638 Dapagliflozin Propanediol (Farxiga) 10 Mg Tablet, 10 MG PO DAILY, (Reported) Entered as Reported by: CODEY ZURITA on 02/04/22 163 Fluconazole (Diflucan) 150 Mg Tablet, 150 MG PO DAILY Prescribed by: PRATIMA ALONSO on 07/27/22 1423 Fluticasone/Umeclidin/Vilanter (Trelegy Ellipta 100-62.5-25) 1 Each Blst.w.dev, 1 EACH IH DAILY, (Reported) Entered as Reported by: ANGELA GUZMAN on 05/21/21 142 Gabapentin (Gabapentin) 600 Mg Tablet, 600 MG PO TID, (Reported) Entered as Reported by: ANGELA GUZMAN on 05/21/21 1420 Ibuprofen (Ibuprofen) 200 Mg Capsule, 400-600 MG PO TID PRN for PAIN-MILD (1-4), (Reported) Entered as Reported by: DIANE CRAIG on 02/10/22 1251 Insulin Glargine,Hum.rec.anlog (Lantus Solostar) 100 Unit/Ml (3 Ml) Insuln.pen, 25 UNIT SQ DAILY, (Reported) Entered as Reported by: CODEY ZURITA on 02/04/22 1638 Insulin Glargine,Hum.rec.anlog (Lantus Solostar) 100 Unit/Ml (3 Ml) Insuln.pen, 15 UNIT SQ 1800, (Reported) Entered as Reported by: CODEY ZURITA on 02/04/22 1638 Ketorolac Tromethamine (Ketorolac Tromethamine) 10 Mg Tablet, 10 MG PO Q6H Prescribed by: Celso Jordan on 07/13/222021 Liraglutide (Victoza 3-Segundo) 0.6 Mg/0.1 Ml (18 Mg/3 Ml) Pen.injctr, 1.8 MG SQ 1200, (Reported) Entered as Reported by: CODEY ZURITA on 02/04/22 1638 Losartan Potassium (Losartan Potassium) 25 Mg Tablet, 25 MG PO DAILY, (Reported) Entered as Reported by: DIANE CRAIG on 02/10/22 1251 Metoprolol Succinate (Metoprolol Succinate) 100 Mg Tab.er.24h, 100 MG PO BID, (Reported) Entered as Reported by: DIANE CRAIG on 02/10/22 1251 Nystatin (Nystatin) 100,000 Unit/Gram Cream..g., 15 GM TP TID Prescribed by: PRATIMA ALONSO on 07/27/22 1423 Omeprazole (Omeprazole) 20 Mg Tab.rap.dr, 20 MG PO DAILY, (Reported) Entered as Reported by: ANGELA GUZMAN on 05/21/21 1420 Oxycodone Hcl (Oxyir Tablet) 5 Mg Tab, 5 MG PO Q4H PRN for PAIN-SEVERE (8-10) Prescribed by: RUDY CHOW MD on 02/16/22 0741 Polyethylene Glycol 3350 (Miralax) 17 Gram Powd.pack, 17 GM PO DAILY PRN PRN for CONSTIPATION-1ST LINE Prescribed by: Celso Jordan on 07/13/222021 Review of Systems Review of Systems Constitutional: see HPI; No chills, No fever EENTM: see HPI Respiratory: no symptoms reported Cardiovascular: no symptoms reported Genitourinary: see HPI, discharge, pain Musculoskeletal: no symptoms reported Skin: no symptoms reported Past [place]-Qecqqe-Xdgiwy Hx Patient Social History Tobacco Use?: Yes Smoking Status: Former Smoker Substance use?: No Alcohol Use?: Yes Alcohol Frequency: Rarely Immunizations Up To Date Tetanus Booster (TDap): Unknown PED Vaccines UTD: No First/Initial COVID19 Vaccinat: 09/2020 Second COVID19 Vaccination Dashawn: 10/2020 Third COVID19 Vaccination Date: 04/2021 COVID19 Vaccine Test Preparation Tutor: AMANDA Seasonal Allergies Seasonal Allergies: No Past Medical History Surgeries: Yes (BILAT KNEE REPLACEMENT; L ANKLE FX/ORIF;HYST/BSO;CATARACTS;URET ERAL STENTS) Cardiac, Section, Eye Surgery, Gallbladder, Hysterectomy, Oophorectomy, Orthopedic, Renal Respiratory: Yes Pneumonia, COPD Currently Using CPAP: Yes Currently Using BIPAP: No Cardiac: Yes (HX OF ANGIOEDEMA DUE TO MEDICATION;CARDIAC CATH 03/2010-NO INTERVENTION) Chronic Edema/Swelling, Coronary Artery Disease, High Cholesterol, Hypertension Neurological: Yes Neuropathy Reproductive Disorders: Yes (hysterectomy) 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 Sexually Transmitted Disease: Yes (TRICHOMONAS) HIV/AIDS: No Genitourinary: Yes (CHRONIC RENAL INSUFFICIENCT) Kidney Infection, Bladder Infection, Kidney Stones, Renal Failure Gastrointestinal: Yes (EGD'S) Gastroesophageal Reflux, Pancreatitis, Ulcer Musculoskeletal: Yes (BILATERAL KNEE REPLACEMENT; LEFT ANKLE FX/ORIF;CHRONIC GENERALIZED PAIN) Arthritis, Back Injury, Chronic Back Pain, Fractures Endocrine: Yes Diabetes, Insulin dep HEENT: Yes (ONLY HAS PERIPHERAL VISION IN LEFT EYE) Cataract Loss of Vision: Left Cancer: No Psychosocial: Yes Eating Disorder, Sleep Difficulties, Anxiety, Depression Integumentary: No Blood Disorders: No Adverse Reaction/Blood Tranf: No Family Medical History Alcoholism 09 SISTER 09 SISTER Cancer 03 MOTHER Cataract 09 SISTER Family history: Cardiovascular disease 09 BROTHER (HEART ATTACK) Family history: Diabetes mellitus 09 SISTER Family history: Glaucoma 09 SISTER 09 SISTER Family history: Hypertension 09 BROTHER 09 BROTHER 09 BROTHER Family history: Osteoporosis 09 SISTER 09 SISTER Kidney disease 09 SISTER Seizure disorder Stroke 09 BROTHER No Family History of: Abdominal aortic aneurysm Cancer of colon Chest pain Congenital heart disease Congestive heart failure Cystic fibrosis Dementia Dysphagia Family history: Allergy Family history: Alzheimer's disease Family history: Arthritis Family history: Breast disease Family history: Coronary thrombosis Family history: Gastrointestinal disease Headache Hearing loss Heart disease Hereditary disease History of - anemia History of - disorder History of - respiratory disease History of drug abuse Human immunodeficiency virus (HIV) seropositivity Hypercholesterolemia Infertile Malignant neoplasm of lung Myocardial infarction Parkinson's disease Prostate cancer Psychotic disorder Tuberculosis Visual impairment Heart Disease, Cancer, CVA, Diabetes Physical Exam Vital Signs Vital Signs - First Documented 07/27/22 12:43 Temp 36.3 Pulse 85 Resp 16 B/P (MAP) 148/78 (101) Pulse Ox 93 O2 Delivery Room Air Capillary Refill : Less Than 3 Seconds Height, Weight, BMI Height: 5'0.00" Weight: 220lbs. 0.3oz. [id number]; 41.00 BMI Method:Stated General Appearance: WD/WN, no apparent distress, other (Alert and oriented no distress ambulatory into ER on her own. Ulcer stable. She has a pad on in her underwear that is saturated with some urine and a pinkish-red tent to it. No clots. ) Neck: non-tender, full range of motion Respiratory: no respiratory distress, no accessory muscle use Gastrointestinal: normal bowel sounds, non tender Genital/Rectal: tenderness, other (Genital exam done with Romeo at the bedside. Using a lighted speculum there are some petechiae to the right side of the vaginal wall near the introitus with no active bleeding. Deeper, there is no blood in the vaginal vault. There is maceration of the vagina and perivaginal tissues with whitish exudate consistent with a candidal infection and irritated inflamed tissues with a few small tender fissures about the labia. ) Rectal: normal exam; No mass Pelvic: no masses; No discharge Neurologic/Psychiatric: alert, normal mood/affect, oriented x 3 Skin: normal color, warm/dry Progress/Results/Core Measures Suspected Sepsis SIRS Temperature: Pulse: 85 Respiratory Rate: 16 Laboratory Tests 07/27/22 13:32: White Blood Count 9.3 Blood Pressure 148 /78 Mean: 101 Laboratory Tests 07/27/22 13:32: Creatinine 0.85, INR Comment 0.9, Platelet Count 150, Total Bilirubin 0.2 Results/Orders Lab Results Laboratory Tests Test 07/27/22 13:11 07/27/22 13:32 Range/Units Urine Color YELLOW Urine Clarity CLEAR Urine pH 5.5 5-9 Urine Specific Randolph 1.025 H 1.016-1.022 Urine Protein NEGATIVE NEGATIVE Urine Glucose (UA) 3+ H NEGATIVE Urine Ketones NEGATIVE NEGATIVE Urine Nitrite NEGATIVE NEGATIVE Urine Bilirubin NEGATIVE NEGATIVE Urine Urobilinogen 0.2 < = 1.0 MG/DL Urine Leukocyte Esterase NEGATIVE NEGATIVE Urine RBC (Auto) NEGATIVE NEGATIVE Urine RBC NONE /HPF Urine WBC 0-2 /HPF Urine Squamous Epithelial Cells NONE /HPF Urine Renal Epithelial Cells NONE /HPF Urine Crystals NONE /LPF Urine Bacteria MODERATE H /HPF Urine Casts NONE /LPF Urine Mucus NEGATIVE /LPF Urine Culture Indicated YES White Blood Count 9.3 4.3-11.0 10^3/uL Red Blood Count 4.19 3.80-5.11 10^6/uL Hemoglobin 13.2 11.5-16.0 g/dL Hematocrit 42 35-52 % Mean Corpuscular Volume 100 H 80-99 fL Mean Corpuscular Hemoglobin 32 25-34 pg Mean Corpuscular Hemoglobin Concent 32 32-36 g/dL Red Cell Distribution Width 15.6 H 10.0-14.5 % Platelet Count 150 130-400 10^3/uL Mean Platelet Volume 9.4 9.0-12.2 fL Immature Granulocyte % (Auto) 0 % Neutrophils (%) (Auto) 48 42-75 % Lymphocytes (%) (Auto) 37 12-44 % Monocytes (%) (Auto) 9 0-12 % Eosinophils (%) (Auto) 5 0-10 % Basophils (%) (Auto) 1 0-10 % Neutrophils # (Auto) 4.5 1.8-7.8 10^3/uL Lymphocytes # (Auto) 3.4 1.0-4.0 10^3/uL Monocytes # (Auto) 0.8 0.0-1.0 10^3/uL Eosinophils # (Auto) 0.5 H 0.0-0.3 10^3/uL Basophils # (Auto) 0.1 0.0-0.1 10^3/uL Immature Granulocyte # (Auto) 0.0 0.0-0.1 10^3/uL Prothrombin Time 12.6 12.2-14.7 SEC INR Comment 0.9 0.8-1.4 Sodium Level 142 135-145 MMOL/L Potassium Level 3.4 L 3.6-5.0 MMOL/L Chloride Level 109 H 98-107 MMOL/L Carbon Dioxide Level 24 21-32 MMOL/L Anion Gap 9 5-14 MMOL/L Blood Urea Nitrogen 10 7-18 MG/DL Creatinine 0.85 0.60-1.30 MG/DL Estimat Glomerular Filtration Rate 74 BUN/Creatinine Ratio 12 Glucose Level 138 H 70-105 MG/DL Calcium Level 8.9 8.5-10.1 MG/DL Corrected Calcium 9.2 8.5-10.1 MG/DL Total Bilirubin 0.2 0.1-1.0 MG/DL Aspartate Amino Transf (AST/SGOT) 24 5-34 U/L Alanine Aminotransferase (ALT/SGPT) 22 0-55 U/L Alkaline Phosphatase 107 40-136 U/L Total Protein 7.2 6.4-8.2 GM/DL Albumin 3.6 3.2-4.5 GM/DL My Orders Orders - PRATIMA ALONSO APRN Cbc With Automated Diff (07/27/22 13:01) Comprehensive Metabolic Panel (07/27/22 13:01) Protime With Inr (07/27/22 13:01) Ed Iv/Invasive Line Start (07/27/22 13:01) Ua Culture If Indicated (07/27/22 13:03) Lidocaine 2% (Urojet) (Xylocaine Urojet) (07/27/22 13:11) Lidocaine 2% (Urojet) (Xylocaine Urojet) (07/27/22 13:15) Straight Cath For Spec.-Adult (07/27/22 13:14) Urine Culture (07/27/22 13:11) Fluconazole Tablet (Ed Only) (Diflucan T (07/27/22 14:00) Hydrocodone/Apap 5/325 Tablet (Lortab 5 (07/27/22 14:00) Ct Abdomen/Pelvis Wo (07/27/22 13:58) Medications Given in ED Current Medications Medications Dose Ordered Sig/Jasmina Route Start Time Stop Time Status Last Admin Dose Admin Acetaminophen/ Hydrocodone Bitart 1 ea ONCE ONCE PO 07/27/22 14:00 07/27/22 14:01 DC 07/27/22 14:08 1 EA Fluconazole 150 mg ONCE ONCE PO 07/27/22 14:00 07/27/22 14:01 DC 07/27/22 14:08 150 MG Lidocaine HCl 10 ml ONCE ONCE TOP 07/27/22 13:15 07/27/22 13:16 DC 07/27/22 13:11 10 ML Vital Signs/I&O 07/27/22 12:43 Temp 36.3 Pulse 85 Resp 16 B/P (MAP) 148/78 (101) Pulse Ox 93 O2 Delivery Room Air Capillary Refill : Less Than 3 Seconds Blood Pressure Mean: 101 Departure Communication (Admissions) NAME: JACKELINISIAH Ernestina MED REC#: [id number] PT STATUS: REG ER : 1950 PHYSICIAN: PRATIMA ALONSO APRN ADMIT DATE: 07/27/22/ER Draft Date of Exam:07/27/22 CT ABDOMEN/PELVIS WO PROCEDURE: CT abdomen and pelvis without contrast. TECHNIQUE: Multiple contiguous axial images were obtained through the abdomen and pelvis without the use of intravenous contrast. Auto Exposure Controls were utilized during the CT exam to meet ALARA standards for radiation dose reduction. INDICATION: Vaginal bleeding. Correlation is made to prior CT from 07/13/2022. Imaging through lung bases does show some linear atelectasis or scarring in the right middle lobe. Calcified granuloma in the lingula. The liver is unremarkable. Gallbladder surgically absent. There is no biliary ductal dilatation. Pancreas and spleen are unremarkable. No adrenal mass is identified. No renal calculi or hydronephrosis is identified. Low-attenuation lesion lower pole of the right kidney is noted, likely a cyst. Aorta is nonaneurysmal. The small and large bowel loops are normal caliber. Appendix is unremarkable. No inflammatory changes are seen. There is no free fluid or fluid collection identified. Bladder appears decompressed. There is artifact through the pelvis from right hip prosthesis, compromising evaluation of the pelvis. IMPRESSION: 1. Essentially unremarkable noncontrast CT of the abdomen and pelvis. No acute abnormality is identified. Dictated on workstation # [id number] Dict: 07/27/22 1429 Trans: 07/27/22 1434 CV [id number] Interpreted by: SANTI ZIMMERMAN MD Electronically signed by: Impression Primary Impression: Yeast vaginitis Additional Impression: Abdominal pain Disposition: 01 HOME, SELF-CARE Condition: Stable Departure-Patient Inst. Decision time for Depature: 14:22 Referrals: [facility] [place] (PCP) Primary Care Physician JORDY NAPOLES APRN (Family) Primary Care Physician Patient Instructions: Vaginal Yeast Infection, Adult ED, Acute Pain, Adult (DC) Add. Discharge Instructions: 1. Take the yeast infection pill as directed and apply the topical cream. Return to ER for any concerns. Follow-up with your doctor next week for recheck. All discharge instructions reviewed with patient and/or family. Voiced understanding. Scripts Nystatin (Nystatin) 100,000 Unit/Gram Cream..g. 15 GM TP TID for 7 Days, #1 EA Prov: PRATIMA ALONSO APRN 07/27/22 Fluconazole (Diflucan) 150 Mg Tablet 150 MG PO DAILY, #3 TAB Prov: PRATIMA ALONSO APRN 07/27/22 PRATIMA ALONSO APRN Jul 27, 2022 13:20
[2022-07-27 13:22] LABS: BILIRUBIN,URINE NEGATIVE (NEGATIVE); CLARITY,URINE CLEAR; COLOR,URINE YELLOW; GLUCOSE, URINE (UA) 3+ (NEGATIVE); KETONES,URINE NEGATIVE (NEGATIVE); LEUKOCYTE ESTERASE ,URINE NEGATIVE (NEGATIVE); NITRITE,URINE NEGATIVE (NEGATIVE); PH,URINE 5.5 (5-9); PROTEIN,URINE NEGATIVE (NEGATIVE)
[2022-07-27 13:29] LABS: BACTERIA,URINE MODERATE /HPF; WBC,URINE 0-2 /HPF
[2022-07-27 13:40] LABS: BASOPHILS # (AUTO) 0.1 10^3/uL (0.0-0.1); BASOPHILS % (AUTO) 1 % (0-10); EOSINOPHILS # (AUTO) 0.5 10^3/uL (0.0-0.3); EOSINOPHILS % (AUTO) 5 % (0-10); HEMATOCRIT 42 % (35-52); HEMOGLOBIN 13.2 g/dL (11.5-16.0); LYMPHOCYTES # (AUTO) 3.4 10^3/uL (1.0-4.0); LYMPHOCYTES % (AUTO) 37 % (12-44); MEAN CORPUSCULAR HEMOGLOBIN 32 pg (25-34); MEAN CORPUSCULAR HGB CONC 32 g/dL (32-36); MEAN CORPUSCULAR VOLUME 100 fL (80-99); MEAN PLATELET VOLUME 9.4 fL (9.0-12.2); MONOCYTES # (AUTO) 0.8 10^3/uL (0.0-1.0); MONOCYTES % (AUTO) 9 % (0-12); NEUTROPHILS # (AUTO) 4.5 10^3/uL (1.8-7.8); NEUTROPHILS % (AUTO) 48 % (42-75); PLATELET COUNT 150 10^3/uL (130-400); WHITE BLOOD COUNT 9.3 10^3/uL (4.3-11.0)
[2022-07-27 13:53] LABS: INR 0.9 (0.8-1.4); PROTHROMBIN TIME PATIENT 12.6 SEC (12.2-14.7)
[2022-07-27 14:00] LABS: ALBUMIN 3.6 GM/DL (3.2-4.5); BILIRUBIN,TOTAL 0.2 MG/DL (0.1-1.0); CALCIUM 8.9 MG/DL (8.5-10.1); CREATININE SERUM 0.85 MG/DL (0.60-1.30); POTASSIUM 3.4 MMOL/L (3.6-5.0); TOTAL PROTEIN 7.2 GM/DL (6.4-8.2)
[2022-07-27] MEDS ORDERED: FLUCONAZOLE 150 MG TABLET (ED ONLY) PO ONE (14:00)
[2022-07-27] MEDS ORDERED: HYDROcodone/APAP 5 MG/325 MG (LORTAB) TAB PO ONE (14:00)
[2022-07-27] MEDS ORDERED: NYST15CR35 TP (14:23)
[2022-07-27] MEDS ORDERED: FLUC150T PO (14:23)
--- NOTE | 2022-07-27 14:35 | Diagnostic Imaging Report ---
PROCEDURE: CT abdomen and pelvis without contrast. TECHNIQUE: Multiple contiguous axial images were obtained through the abdomen and pelvis without the use of intravenous contrast. Auto Exposure Controls were utilized during the CT exam to meet ALARA standards for radiation dose reduction. INDICATION: Vaginal bleeding. Correlation is made to prior CT from 07/13/2022. Imaging through lung bases does show some linear atelectasis or scarring in the right middle lobe. Calcified granuloma in the lingula. The liver is unremarkable. Gallbladder surgically absent. There is no biliary ductal dilatation. Pancreas and spleen are unremarkable. No adrenal mass is identified. No renal calculi or hydronephrosis is identified. Low-attenuation lesion lower pole of the right kidney is noted, likely a cyst. Aorta is nonaneurysmal. The small and large bowel loops are normal caliber. Appendix is unremarkable. No inflammatory changes are seen. There is no free fluid or fluid collection identified. Bladder appears decompressed. There is artifact through the pelvis from right hip prosthesis, compromising evaluation of the pelvis. IMPRESSION: 1. Essentially unremarkable noncontrast CT of the abdomen and pelvis. No acute abnormality is identified. Dictated by: Dictated on workstation # [id number]
[2022-07-27 14:45] VITALS: BP 167/101
== END 2022-07-27 14:45 | disposition home or self-care (01) ==
LOC: EDUNIT# 12:33 → ER 12:35
DX: B37.31 Acute candidiasis of vulva and vagina (principal); R10.30 Lower abdominal pain, unspecified; J44.9 Chronic obstructive pulmonary disease, unspecified; E11.9 Type 2 diabetes mellitus without complications; Z99.89 Dependence on other enabling machines and devices; Z79.4 Long term (current) use of insulin; Z87.891 Personal history of nicotine dependence
CPT/HCPCS: 36415; 51701; 74176; 80053; 81000; 85025; 85610; 87088

== ENCOUNTER → 2023-02-09 | Outpatient (CLI) | payer MEDICARE ==
[~2023-02-09] MED LIST changes: +NYST15CR35 TP
--- NOTE | 2023-02-09 16:10 | Diagnostic Imaging Report ---
INDICATION: Pain. TECHNIQUE: Two views were obtained. FINDINGS: There are mild degenerative changes of the left hip. There is no fracture or dislocation. There are no focal soft tissue abnormalities. There are no lytic or sclerotic lesions. IMPRESSION: Mild degenerative changes of the left hip; otherwise, unremarkable. Dictated on workstation # [id number]
--- NOTE | 2023-02-09 16:39 | Diagnostic Imaging Report ---
INDICATION: Right hip pain, right hip arthroplasty, post surgical followup. COMPARISON: 03/31/2022. TECHNIQUE: Two radiographs of the right hip dated 02/09/2023. FINDINGS: Right total hip arthroplasty is again identified. No evidence of hardware complication. No acute fracture or dislocation. No destructive osseous process. No suspicious radiopaque foreign body. The right sacroiliac joint is intact. IMPRESSION: Right total hip arthroplasty without evidence of hardware complication or acute osseous abnormality. Dictated by: Dictated on workstation # [id number]
== END ==
LOC: ORTHO 09:46
PROVIDERS: ATTEND Orthopaedic Surgery
DX: M16.12 Unilateral primary osteoarthritis, left hip (principal); M25.551 Pain in right hip; Z96.641 Presence of right artificial hip joint
CPT/HCPCS: 73502

== ENCOUNTER 2023-03-22 08:42 | Outpatient (CLI) | payer MEDICARE ==
[~2023-03-22] VITALS: Ht 152.4 cm; Wt 95.9 kg
[2023-03-22 13:50] VITALS: BP 142/89
== END 2023-03-22 13:54 ==
LOC: PREOP 08:42
PROVIDERS: ATTEND Orthopaedic Surgery
DX: Z01.818 Encounter for other preprocedural examination (principal); M16.12 Unilateral primary osteoarthritis, left hip
CPT/HCPCS: 87081; 93005

== ENCOUNTER → 2023-03-24 | Outpatient (CLI) | payer MEDICARE ==
--- NOTE | 2023-03-24 17:31 | Diagnostic Imaging Report ---
INDICATION: Left hip pain. Time of Exam: 3:00 p.m. Two views of the left hip were obtained. Femoral acetabular alignment is normal. The femoral head and neck appear to be intact. Left-sided rami are intact. There is some mild superior joint space narrowing compatible with degenerative changes. There is some minimal spurring at the femoral head neck junction. No fractures are seen. IMPRESSION: Left hip joint degenerative changes. No acute bony abnormality is detected. Dictated by: Dictated on workstation # [id number]
== END ==
LOC: ORTHO 14:32
PROVIDERS: ATTEND Orthopaedic Surgery
DX: M16.12 Unilateral primary osteoarthritis, left hip (principal)
CPT/HCPCS: 73502

== ENCOUNTER → 2023-04-13 | Outpatient (CLI) | payer MEDICARE ==
[~2023-04-13] MED LIST changes: +LOSA50TA63 PO; +OMEP20TA56 PO
== END ==
LOC: ORTHO 09:56
PROVIDERS: ATTEND Orthopaedic Surgery
DX: Z47.89 Encounter for other orthopedic aftercare (principal); Z96.642 Presence of left artificial hip joint

== ENCOUNTER → 2023-05-13 | Outpatient (CLI) | payer MEDICARE ==
--- NOTE | 2023-05-13 08:32 | Diagnostic Imaging Report ---
EXAMINATION: Left hip unilateral 2 or 3 views (w/pelvis when done) HISTORY: Postop COMPARISON: 03/24/2023 FINDINGS: There is a left hip arthroplasty. No fracture. No dislocation. Alignment is near-anatomic. IMPRESSION: 1. Anatomic alignment of the left hip arthroplasty. Dictated by: Dictated on workstation # [id number]
== END ==
LOC: ORTHO 08:05
PROVIDERS: ATTEND Orthopaedic Surgery
DX: Z47.89 Encounter for other orthopedic aftercare (principal); E11.9 Type 2 diabetes mellitus without complications; I10 Essential (primary) hypertension; E78.2 Mixed hyperlipidemia; Z96.641 Presence of right artificial hip joint
CPT/HCPCS: 73502

== ENCOUNTER 2023-08-02 13:47 | Emergency (ER) | payer MEDICARE ==
[~2023-08-02] VITALS: Ht 152 cm; Wt 92.5 kg
[2023-08-02] MEDS ORDERED: fentaNYL INJECTION 100 MCG/2 ML VIAL IVP ONE (14:00)
--- NOTE | 2023-08-02 14:03 | ED General ---
General Chief Complaint: Chest Pain Stated Complaint: CHEST PAINS Source of Information: Patient, EMS Exam Limitations: No Limitations History of Present Illness Date Seen by Provider: Aug 02, 2023 Time Seen by Provider: 13:46 Initial Comments 72-year-old female with high blood pressure, diabetes mellitus and COPD presents to the emergency department via EMS from her primary doctor's office. She tells me intermittently for the last couple of weeks she has had left shoulder pain that radiates up into her left anterior superior chest. It seems to come on only at rest and lasts a couple of hours when it comes on. It resolved spontaneously without any specific therapy. It is definitely worse with movement of her arm or palpation of the area. She denies any fevers but has had some chills. She states she has had a cough for the last week or so and has been taking DayQuil and cough drops. She has no known cardiac history. She has not smoked for 15 years. Her pain is significant at this time. She does tell me she has episodes when her pain is not there where she can move her arm freely without any difficulty. All other systems reviewed and negative except documented per HPI. Voice recognition software was used to help create this chart Allergies and Home Medications Allergies Coded Allergies: Sulfa (Sulfonamide Antibiotics) (Verified Allergy, Unknown, HIVES/RASH/ITCHING, 03/22/23) latex (Verified Allergy, Unknown, RASH, 02/04/22) lisinopril (Verified Allergy, Unknown, ANGIOEDEMA, 03/22/23) metformin (Verified Allergy, Unknown, ANGIO EDEMA, 03/22/23) Patient Home Medication List Home Medication List Reviewed: Yes Albuterol Sulfate (Ventolin Hfa) 1 Puff Puff, 2 PUFF IH Q4H PRN for SHORTNESS OF BREATH, (Reported) Entered as Reported by: CODEY UZRITA on 02/04/22 1638 Amitriptyline HCl (Amitriptyline HCl) 25 Mg Tablet, 25 MG PO HS, (Reported) Entered as Reported by: DIANE CRAIG on 02/10/22 1251 Apixaban (Eliquis) 2.5 Mg Tablet, 2.5 MG PO BID Prescribed by: RUDY CHOW MD on 04/02/23 0718 Atorvastatin Calcium (Atorvastatin Calcium) 40 Mg Tablet, 40 MG PO HS, (Reported) Entered as Reported by: DIANE CRAIG on 02/10/22 1251 Citalopram Hydrobromide (Citalopram HBr) 20 Mg Tablet, 20 MG PO DAILY, (Repor lexis) Entered as Reported by: ELODIA LOPEZ on 03/12/20 0844 Cyclobenzaprine HCl (Cyclobenzaprine HCl) 10 Mg Tablet, 5 MG PO TID PRN for MUSCLE SPASMS Prescribed by: RUDY CHOW MD on 04/02/23 0718 Dapagliflozin Propanediol (Farxiga) 10 Mg Tablet, 10 MG PO DAILY, (Reported) Entered as Reported by: CODEY ZURITA on 02/04/22 1638 Fluticasone/Umeclidin/Vilanter (Trelegy Ellipta 100-62.5-25) 1 Each Blst.w.dev, 1 EACH IH DAILY, (Reported) Entered as Reported by: ANGELA GUZMAN on 05/21/21 142 Gabapentin (Gabapentin) 600 Mg Tablet, 600 MG PO TID, (Reported) Entered as Reported by: ANGELA GUZMAN on 05/21/21 1420 Insulin Glargine,Hum.rec.anlog (Lantus Solostar) 100 Unit/Ml (3 Ml) Insuln.pen, 25 UNIT SQ DAILY, (Reported) Entered as Reported by: CODEY ZURITA on 02/04/22 163 Insulin Glargine,Hum.rec.anlog (Lantus Solostar) 100 Unit/Ml (3 Ml) Insuln.pen, 15 UNIT SQ 1800, (Reported) Entered as Reported by: CODEY ZURITA on 02/04/22 163 Liraglutide (Victoza 3-Segundo) 0.6 Mg/0.1 Ml (18 Mg/3 Ml) Pen.injctr, 1.8 MG SQ 1300, (Reported) Entered as Reported by: CODEY ZURITA on 02/04/22 163 Losartan Potassium (Losartan Potassium) 50 Mg Tablet, 50 MG PO HS, (Reported) Entered as Reported by: DIANE CRAIG on 03/30/23 1248 Metoprolol Succinate (Metoprolol Succinate) 100 Mg Tab.er.24h, 100 MG PO BID, (Reported) Entered as Reported by: DIANE CRAIG on 02/10/22 1251 Nystatin (Nystatin) 100,000 Unit/Gram Cream..g., 1 APPLIC TP TID PRN for SKIN IRRITATION, (Reported) Entered as Reported by: DIANE CRAIG on 03/30/23 1226 Omeprazole (Omeprazole) 20 Mg Tablet.dr, 20 MG PO DAILY, (Reported) Entered as Reported by: DIANE CRAIG on 03/30/23 1226 Oxycodone Hcl (Oxyir Tablet) 5 Mg Tab, 5 MG PO Q4H PRN for PAIN-SEVERE (8-10) Prescribed by: RUDY CHOW MD on 04/02/23 0719 Review of Systems Review of Systems Constitutional: see HPI Past Gjlzvwz-Cdylvv-Mwktqh Hx Patient Social History Tobacco Use?: No Substance use?: No Alcohol Use?: Yes Alcohol Frequency: Rarely Pt feels they are or have been: No Immunizations Up To Date Tetanus Booster (TDap): Unknown PED Vaccines UTD: No First/Initial COVID19 Vaccinat: [place] Second COVID19 Vaccination Dashawn: [place] Third COVID19 Vaccination Date: [place] Seasonal Allergies Seasonal Allergies: No Past Medical History Surgery/Hospitalization HX: PMH: COPD, HTN, COPD, DM-2, DEPRESSION, NEUROPATHY, ANEMIA, BRONCHITIS, ARTHRITIS SX: HYST, KIDNEY STENTS, L HIP REPLACEMENT Surgeries: Yes (BILAT KNEE REPLACEMENT; L ANKLE FX/ORIF;HYST/BSO;CATARACTS;URETERAL STENTS,) Cardiac, Section, Eye Surgery, Gallbladder, Hysterectomy, Oophorectomy, Orthopedic, Renal Respiratory: Yes Pneumonia, RSV, Sleep Apnea, COPD Currently Using CPAP: No Currently Using BIPAP: No Cardiac: Yes (HX OF ANGIOEDEMA DUE TO MEDICATION;CARDIAC CATH 03/2010-NO INTERVENTION) Chronic Edema/Swelling, Coronary Artery Disease, High Cholesterol, Hypertension Neurological: Yes Neuropathy Reproductive Disorders: Yes (hysterectomy) 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 Sexually Transmitted Disease: Yes (TRICHOMONAS) HIV/AIDS: No Genitourinary: Yes Kidney Infection, Bladder Infection, Kidney Stones Gastrointestinal: Yes (EGD'S) Abdominal Hernia, Gastroesophageal Reflux, Pancreatitis, Ulcer, Gall Bladder Disease Musculoskeletal: Yes (BILATERAL KNEE REPLACEMENT; LEFT ANKLE FX/ORIF;CHRONIC GENERALIZED PAIN) Arthritis, Back Injury, Chronic Back Pain, Fractures Endocrine: Yes Diabetes, Insulin dep HEENT: Yes (ONLY HAS PERIPHERAL VISION IN LEFT EYE) Cataract Loss of Vision: Left Cancer: No Psychosocial: Yes Sleep Difficulties, Anxiety, Depression Integumentary: Yes Psoriasis Blood Disorders: No Adverse Reaction/Blood Tranf: No Family Medical History Alcoholism 09 SISTER 09 SISTER Cancer 03 MOTHER Cataract 09 SISTER Family history: Cardiovascular disease 09 BROTHER (HEART ATTACK) Family history: Diabetes mellitus 09 SISTER Family history: Glaucoma 09 SISTER 09 SISTER Family history: Hypertension 09 BROTHER 09 BROTHER 09 BROTHER Family history: Osteoporosis 09 SISTER 09 SISTER Kidney disease 09 SISTER Seizure disorder Stroke 09 BROTHER No Family History of: Abdominal aortic aneurysm Cancer of colon Chest pain Congenital heart disease Congestive heart failure Cystic fibrosis Dementia Dysphagia Family history: Allergy Family history: Alzheimer's disease Family history: Arthritis Family history: Breast disease Family history: Coronary thrombosis Family history: Gastrointestinal disease Headache Hearing loss Heart disease Hereditary disease History of - anemia History of - disorder History of - respiratory disease History of drug abuse Human immunodeficiency virus (HIV) seropositivity Hypercholesterolemia Infertile Malignant neoplasm of lung Myocardial infarction Parkinson's disease Prostate cancer Psychotic disorder Tuberculosis Visual impairment Heart Disease, Cancer, CVA, Diabetes Physical Exam Vital Signs Vital Signs - First Documented 08/02/23 13:52 Temp 36.7 Pulse 75 Resp 16 B/P (MAP) 185/96 (125) Pulse Ox 94 Capillary Refill : Less Than 3 Seconds Height, Weight, BMI Height: 5'0.00" Weight: 220lbs. 0.3oz. 99.296102bi; 41.29 BMI Method:Stated General Appearance: No Apparent Distress, WD/WN Eyes: Bilateral Eye Normal Inspection, Bilateral Eye PERRL, Bilateral Eye EOMI HEENT: Normal ENT Inspection, Pharynx Normal Neck: Normal Inspection, Non Tender, Supple Respiratory: Chest Non Tender, Lungs Clear, Normal Breath Sounds, No Accessory Muscle Use, No Respiratory Distress Cardiovascular: Regular Rate, Rhythm, No Murmur, Normal Peripheral Pulses Gastrointestinal: Normal Bowel Sounds, No Organomegaly, Non Tender, Soft Extremity: Normal Capillary Refill, Normal Inspection, Other (Significant tenderness palpation the superior portion of her left shoulder with range of motion above 90 degrees. This seems to go away with any movement below this level. It is tender to palpation. No skin changes. Neurovascular and sensory intact. No bony deformity.) Neurologic/Psychiatric: Alert, Oriented x3 Skin: Normal Color, Warm/Dry Progress/Results/Core Measures Suspected Sepsis SIRS Temperature: Pulse: Respiratory Rate: Laboratory Tests 08/02/23 13:59: White Blood Count 10.0 Blood Pressure / Mean: Laboratory Tests 08/02/23 13:59: Creatinine 0.88, Platelet Count 150, Total Bilirubin 0.4 Results/Orders Lab Results Laboratory Tests Test 08/02/23 13:59 Range/Units White Blood Count 10.0 4.3-11.0 10^3/uL Red Blood Count 4.53 3.80-5.11 10^6/uL Hemoglobin 13.2 11.5-16.0 g/dL Hematocrit 43 35-52 % Mean Corpuscular Volume 95 80-99 fL Mean Corpuscular Hemoglobin 29 25-34 pg Mean Corpuscular Hemoglobin Concent 31 L 32-36 g/dL Red Cell Distribution Width 17.1 H 10.0-14.5 % Platelet Count 150 130-400 10^3/uL Mean Platelet Volume 9.5 9.0-12.2 fL Immature Granulocyte % (Auto) 0 % Neutrophils (%) (Auto) 56 42-75 % Lymphocytes (%) (Auto) 32 12-44 % Monocytes (%) (Auto) 9 0-12 % Eosinophils (%) (Auto) 3 0-10 % Basophils (%) (Auto) 1 0-10 % Neutrophils # (Auto) 5.6 1.8-7.8 10^3/uL Lymphocytes # (Auto) 3.2 1.0-4.0 10^3/uL Monocytes # (Auto) 0.9 0.0-1.0 10^3/uL Eosinophils # (Auto) 0.3 0.0-0.3 10^3/uL Basophils # (Auto) 0.1 0.0-0.1 10^3/uL Immature Granulocyte # (Auto) 0.0 0.0-0.1 10^3/uL Sodium Level 141 135-145 MMOL/L Potassium Level 4.0 3.6-5.0 MMOL/L Chloride Level 107 98-107 MMOL/L Carbon Dioxide Level 23 21-32 MMOL/L Anion Gap 11 5-14 MMOL/L Blood Urea Nitrogen 13 7-18 MG/DL Creatinine 0.88 0.60-1.30 MG/DL Estimat Glomerular Filtration Rate 71 BUN/Creatinine Ratio 15 Glucose Level 81 70-105 MG/DL Calcium Level 9.1 8.5-10.1 MG/DL Corrected Calcium 9.2 8.5-10.1 MG/DL Magnesium Level 2.2 1.6-2.4 MG/DL Total Bilirubin 0.4 0.1-1.0 MG/DL Aspartate Amino Transf (AST/SGOT) 21 5-34 U/L Alanine Aminotransferase (ALT/SGPT) 15 0-55 U/L Alkaline Phosphatase 100 40-136 U/L Troponin I < 0.028 <0.028 NG/ML Total Protein 7.9 6.4-8.2 GM/DL Albumin 3.9 3.2-4.5 GM/DL My Orders Orders - TASHA HOWARD DO Cbc And Automated Diff (08/02/23 13:59) Magnesium (08/02/23 13:59) Chest 1 View, Ap/Pa Only (08/02/23 13:59) Ekg Tracing (08/02/23 13:59) Comprehensive Metabolic Panel (08/02/23 13:59) Ed Iv/Invasive Line Start (08/02/23 13:59) Troponin I Slope (08/02/23 13:59) Fentanyl Injection (Fentanyl Injection (08/02/23 14:00) Medications Given in ED Current Medications Medications Dose Ordered Sig/Jasmina Route Start Time Stop Time Status Last Admin Dose Admin Fentanyl Citrate 50 mcg ONCE ONCE IVP 08/02/23 14:00 08/02/23 14:01 DC 08/02/23 14:11 50 MCG Vital Signs/I&O 08/02/23 13:52 Temp 36.7 Pulse 75 Resp 16 B/P (MAP) 185/96 (125) Pulse Ox 94 Capillary Refill : Less Than 3 Seconds Departure Impression Primary Impression: Left shoulder pain Qualified Codes: M25.512 - Pain in left shoulder Disposition: HOME, SELF-CARE Condition: Stable Departure-Patient Inst. Referrals: [facility] (PCP/Family) Primary Care Physician RUDY CHOW MD Patient Instructions: Joint Pain Add. Discharge Instructions: Your pain appears to be musculoskeletal in nature and is likely From your shoulder joint. Please follow-up with orthopedics by calling to schedule an appointment. Return to the emergency department for any severe concerns. Use ibuprofen, Tylenol as needed for pain. Return to the emergency department for any severe concerns. All discharge instructions reviewed with patient and/or family. Voiced understanding. TASHA HOWARD DO Aug 02, 2023 14:03
[2023-08-02 14:07] LABS: BASOPHILS # (AUTO) 0.1 10^3/uL (0.0-0.1); BASOPHILS % (AUTO) 1 % (0-10); EOSINOPHILS # (AUTO) 0.3 10^3/uL (0.0-0.3); EOSINOPHILS % (AUTO) 3 % (0-10); HEMATOCRIT 43 % (35-52); HEMOGLOBIN 13.2 g/dL (11.5-16.0); LYMPHOCYTES # (AUTO) 3.2 10^3/uL (1.0-4.0); LYMPHOCYTES % (AUTO) 32 % (12-44); MEAN CORPUSCULAR HEMOGLOBIN 29 pg (25-34); MEAN CORPUSCULAR HGB CONC 31 g/dL (32-36); MEAN CORPUSCULAR VOLUME 95 fL (80-99); MEAN PLATELET VOLUME 9.5 fL (9.0-12.2); MONOCYTES # (AUTO) 0.9 10^3/uL (0.0-1.0); MONOCYTES % (AUTO) 9 % (0-12); NEUTROPHILS # (AUTO) 5.6 10^3/uL (1.8-7.8); NEUTROPHILS % (AUTO) 56 % (42-75); PLATELET COUNT 150 10^3/uL (130-400)
[2023-08-02 14:15] LABS: ALBUMIN 3.9 GM/DL (3.2-4.5); CHLORIDE 107 MMOL/L (98-107); SODIUM 141 MMOL/L (135-145)
[2023-08-02 14:17] LABS: CALCIUM 9.1 MG/DL (8.5-10.1)
[2023-08-02 14:18] LABS: GLUCOSE 81 MG/DL (70-105); TOTAL PROTEIN 7.9 GM/DL (6.4-8.2)
[2023-08-02 14:19] LABS: CARBON DIOXIDE 23 MMOL/L (21-32)
[2023-08-02 14:20] LABS: BILIRUBIN,TOTAL 0.4 MG/DL (0.1-1.0)
[2023-08-02 14:21] LABS: ALKALINE PHOSPHATASE 100 U/L (40-136); CREATININE SERUM 0.88 MG/DL (0.60-1.30); GFR ESTIMATED 71
[2023-08-02 14:22] LABS: BUN/CREATININE RATIO 15
[2023-08-02 14:24] LABS: ALANINE AMINOTRANSFERASE 15 U/L (0-55); MAGNESIUM 2.2 MG/DL (1.6-2.4)
--- NOTE | 2023-08-02 14:51 | Diagnostic Imaging Report ---
INDICATION: Chest pain. COMPARISON: 04/25/2021. FINDINGS: The lungs are free of acute infiltrate. There is some stable trace linear scarring in the left mid lung, unchanged. No infiltrate, failure, effusion, or pneumothorax. IMPRESSION: Stable chest. Dictated by: Dictated on workstation # [id number]
[2023-08-02 14:59] VITALS: BP 148/90
== END 2023-08-02 14:59 | disposition home or self-care (01) ==
LOC: EDUNIT# 13:47 → ER 13:48
DX: M25.512 Pain in left shoulder (principal); E11.9 Type 2 diabetes mellitus without complications; Z79.4 Long term (current) use of insulin; Z91.040 Latex allergy status
CPT/HCPCS: 36415; 71045; 80053; 83735; 84484; 85025; 93005